=== PATIENT | male | born 1965 | race Caucasian/White ===

== ENCOUNTER → 2021-07-21 05:04 | Outpatient (REF) | payer MEDICARE, MEDICAID, SELFPAY ==
[2021-07-21 09:21] LABS: Cholesterol 155 mg/dL (200); High Density Lipoprotein 41 mg/dL; Triglycerides 179 mg/dL; Very Low Density Lipoprotein 36 mg/dL (5-40)
== END ==
LOC: OLS.SANC 05:04
PROVIDERS: Visit Provider Internal Medicine
DX: E11.9 Type 2 diabetes mellitus without complications (principal); I10 Essential (primary) hypertension; E78.5 Hyperlipidemia, unspecified
CPT/HCPCS: 36415; 80061

== ENCOUNTER → 2021-07-29 07:00 | Outpatient (REF) | payer MEDICARE, MEDICAID, SELFPAY ==
[2021-07-29 09:55] LABS: Hematocrit 36.8 % (40-54); Hemoglobin 11.1 g/dL (13.0-16.5); Mean Corp Hgb Conc 30.2 g/dL (32-36); Mean Corpuscular Hgb 26.7 pg (27.0-32.0); Mean Corpuscular Volume 88.5 fL (80-94); Mean Platelet Vol. 10.1 fl (6.2-12.0); Platelet Count 320 K/mm3 (150-450); RBC Distribution Width SD 45.2 fl (35.1-43.9); Red Blood Count 4.16 M/mm3 (4.6-6.2)
[2021-07-29 10:51] LABS: ALB/GLOB Ratio 0.8 RATIO (0.9-2.4); AST(SGOT) 21 U/L (15-37); Alanine Aminotransfer ALT/SGPT 35 U/L (16-61); Albumin, Serum 2.9 g/dL (3.2-5.0); Alkaline Phosphatase 192 U/L (45-117); Anion Gap 4 (5-15); BUN 18 mg/dL (7-18); BUN/Creat Ratio 28.6 RATIO (10-20); Calcium,Total 8.8 mg/dL (8.5-10.1); Chloride 105 mmol/L (98-107); Cholesterol 163 mg/dL (200); Creatinine, Serum 0.63 mg/dL (0.70-1.30); EST Glomerular Filtration Rate 141 mL/min (>60); Est Glom Filt Rate - Afr Amer 171 mL/min (>60); Globulin 3.7 g/dL (2.2-4.2); Glucose 106 mg/dL (74-106); High Density Lipoprotein 41 mg/dL; Potassium 4.3 mmol/L (3.5-5.1); Protein, Total 6.6 g/dL (6.4-8.2); Sodium Level 138 mmol/L (136-145); Triglycerides 188 mg/dL; Very Low Density Lipoprotein 38 mg/dL (5-40)
[2021-07-29 11:26] LABS: Hemoglobin A1c 8.8 % (3.8-5.6)
== END ==
LOC: OLS.SANC 07:00
PROVIDERS: Visit Provider Internal Medicine
DX: E11.9 Type 2 diabetes mellitus without complications (principal); E78.5 Hyperlipidemia, unspecified
CPT/HCPCS: 36415; 80053; 80061; 83036; 85027

== ENCOUNTER → 2021-08-28 05:00 | Outpatient (REF) | payer MEDICARE, MEDICAID, SELFPAY ==
[2021-08-28 07:59] LABS: Absolute Lymphocyte Count 2.19 X10^3/uL (0.83-4.51); Absolute Neutrophil Count 3.1 X10^3/uL (2.0-7.7); Basophil# 0.04 X10^3/uL; Basophil% 0.7 % (0-1); Eosinophil# 0.18 X10^3/uL; Eosinophils% 2.9 % (0-5); Hematocrit 36.5 % (40-54); Lymphocyte # 2.19 X10^3/ul (0.83-4.51); Lymphocyte % 35.8 % (19-41); Mean Corp Hgb Conc 30.1 g/dL (32-36); Mean Corpuscular Hgb 26.4 pg (27.0-32.0); Mean Corpuscular Volume 87.5 fL (80-94); Mean Platelet Vol. 10.3 fl (6.2-12.0); Monocyte# 0.58 X10^3/uL; Monocyte% 9.5 % (0-10); NRBC Flagged by Analyzer 0 % (0-5); Neutrophil # 3.11 X10^3/uL (2.7-7.7); Neutrophil % 50.8 % (47-70); Platelet Count 310 K/mm3 (150-450); RBC Distribution Width CV 14.1 % (11.6-14.6); RBC Distribution Width SD 45.6 fl (35.1-43.9); Red Blood Count 4.17 M/mm3 (4.6-6.2); White Blood Count 6.1 K/mm3 (4.4-11.0)
[2021-08-28 08:21] LABS: Anion Gap 7 (5-15); BUN 25 mg/dL (7-18); BUN/Creat Ratio 30.8 RATIO (10-20); Calcium,Total 9.2 mg/dL (8.5-10.1); Chloride 108 mmol/L (98-107); Creatinine, Serum 0.81 mg/dL (0.70-1.30); EST Glomerular Filtration Rate 105 mL/min (>60); Est Glom Filt Rate - Afr Amer 127 mL/min (>60); Glucose 227 mg/dL (74-106); Potassium 4.3 mmol/L (3.5-5.1); Sodium Level 139 mmol/L (136-145)
== END ==
LOC: OLS.SANC 05:00
PROVIDERS: Visit Provider Internal Medicine
DX: E11.9 Type 2 diabetes mellitus without complications (principal)
CPT/HCPCS: 36415; 80048; 85025

== ENCOUNTER → 2021-09-29 05:00 | Outpatient (REF) | payer MEDICARE, MEDICAID, SELFPAY ==
[2021-09-29 09:43] LABS: Absolute Lymphocyte Count 2.67 X10^3/uL (0.83-4.51); Absolute Neutrophil Count 3.8 X10^3/uL (2.0-7.7); Basophil# 0.04 X10^3/uL; Basophil% 0.5 % (0-1); Eosinophil# 0.19 X10^3/uL; Eosinophils% 2.6 % (0-5); Hematocrit 34.5 % (40-54); Hemoglobin 10.7 g/dL (13.0-16.5); Lymphocyte # 2.67 X10^3/ul (0.83-4.51); Lymphocyte % 36.5 % (19-41); Mean Corpuscular Volume 86.9 fL (80-94); Mean Platelet Vol. 10.4 fl (6.2-12.0); Monocyte# 0.53 X10^3/uL; Monocyte% 7.2 % (0-10); NRBC Flagged by Analyzer 0 % (0-5); Neutrophil # 3.83 X10^3/uL (2.7-7.7); Neutrophil % 52.4 % (47-70); Platelet Count 312 K/mm3 (150-450); RBC Distribution Width CV 13.5 % (11.6-14.6); RBC Distribution Width SD 43.2 fl (35.1-43.9); Red Blood Count 3.97 M/mm3 (4.6-6.2); White Blood Count 7.3 K/mm3 (4.4-11.0)
[2021-09-29 10:15] LABS: Anion Gap 5 (5-15); BUN 18 mg/dL (7-18); BUN/Creat Ratio 21.1 RATIO (10-20); Calcium,Total 8.9 mg/dL (8.5-10.1); Chloride 106 mmol/L (98-107); Creatinine, Serum 0.85 mg/dL (0.70-1.30); EST Glomerular Filtration Rate 99 mL/min (>60); Est Glom Filt Rate - Afr Amer 120 mL/min (>60); Glucose 240 mg/dL (74-106); Sodium Level 138 mmol/L (136-145)
== END ==
LOC: OLS.SANC 05:00
PROVIDERS: Visit Provider Internal Medicine
DX: E11.9 Type 2 diabetes mellitus without complications (principal); I10 Essential (primary) hypertension; E78.5 Hyperlipidemia, unspecified
CPT/HCPCS: 36415; 80048; 85025

== ENCOUNTER → 2022-01-19 | Outpatient (REF) | payer MEDICARE, MEDICAID, SELFPAY ==
[2022-01-19 09:51] LABS: Cholesterol 169 mg/dL (200); High Density Lipoprotein 35 mg/dL; Triglycerides 177 mg/dL; Very Low Density Lipoprotein 35 mg/dL (5-40)
== END | disposition home or self-care (01) ==
LOC: OLS.SANC 04:00
PROVIDERS: Referring Provider Internal Medicine; Visit Provider Internal Medicine
DX: I10 Essential (primary) hypertension (principal); E11.9 Type 2 diabetes mellitus without complications; E78.5 Hyperlipidemia, unspecified
CPT/HCPCS: 36415; 80061

== ENCOUNTER → 2022-01-29 | Outpatient (REF) | payer MEDICARE, MEDICAID, SELFPAY ==
[2022-01-29 08:15] LABS: Hematocrit 35.1 % (40-54); Hemoglobin 10.9 g/dL (13.0-16.5); Mean Corp Hgb Conc 31.1 g/dL (32-36); Mean Corpuscular Hgb 27.9 pg (27.0-32.0); Mean Corpuscular Volume 89.8 fL (80-94); Mean Platelet Vol. 10.9 fl (6.2-12.0); Platelet Count 306 K/mm3 (150-450); RBC Distribution Width CV 13.3 % (11.6-14.6); RBC Distribution Width SD 43.8 fl (35.1-43.9); Red Blood Count 3.91 M/mm3 (4.6-6.2)
[2022-01-29 08:35] LABS: ALB/GLOB Ratio 0.9 RATIO (0.9-2.4); AST(SGOT) 11 U/L (15-37); Alanine Aminotransfer ALT/SGPT 38 U/L (16-61); Albumin, Serum 3.3 g/dL (3.2-5.0); Alkaline Phosphatase 194 U/L (45-117); Anion Gap 5 (5-15); BUN 18 mg/dL (7-18); BUN/Creat Ratio 20.6 RATIO (10-20); Calcium,Total 8.8 mg/dL (8.5-10.1); Chloride 103 mmol/L (98-107); Creatinine, Serum 0.87 mg/dL (0.70-1.30); EST Glomerular Filtration Rate 97 mL/min (>60); Est Glom Filt Rate - Afr Amer 117 mL/min (>60); Globulin 3.5 g/dL (2.2-4.2); Glucose 334 mg/dL (74-106); Hemoglobin A1c 8.8 % (3.8-5.6); Protein, Total 6.8 g/dL (6.4-8.2); Sodium Level 135 mmol/L (136-145)
== END | disposition home or self-care (01) ==
LOC: OLS.SANC 04:00
PROVIDERS: Visit Provider Internal Medicine
DX: I10 Essential (primary) hypertension (principal); E78.5 Hyperlipidemia, unspecified; E11.9 Type 2 diabetes mellitus without complications
CPT/HCPCS: 36415; 80053; 83036; 85027

== ENCOUNTER → 2022-03-02 | Outpatient (REF) | payer MEDICARE, MEDICAID, SELFPAY ==
[2022-03-02 10:13] LABS: Hematocrit 34.5 % (40-54); Hemoglobin 10.7 g/dL (13.0-16.5); Mean Corpuscular Hgb 27.9 pg (27.0-32.0); Mean Corpuscular Volume 90.1 fL (80-94); Mean Platelet Vol. 10.6 fl (6.2-12.0); Platelet Count 310 K/mm3 (150-450); RBC Distribution Width CV 13.5 % (11.6-14.6); RBC Distribution Width SD 44.5 fl (35.1-43.9); Red Blood Count 3.83 M/mm3 (4.6-6.2); White Blood Count 7.7 K/mm3 (4.4-11.0)
[2022-03-02 10:35] LABS: Anion Gap 7 (5-15); BUN 25 mg/dL (7-18); BUN/Creat Ratio 31.8 RATIO (10-20); Chloride 105 mmol/L (98-107); Creatinine, Serum 0.79 mg/dL (0.70-1.30); EST Glomerular Filtration Rate 109 mL/min (>60); Est Glom Filt Rate - Afr Amer 132 mL/min (>60); Glucose 284 mg/dL (74-106); Potassium 4.6 mmol/L (3.5-5.1); Sodium Level 134 mmol/L (136-145)
== END | disposition home or self-care (01) ==
LOC: OLS.SANC 05:35
PROVIDERS: Visit Provider Internal Medicine
DX: I10 Essential (primary) hypertension (principal); E11.9 Type 2 diabetes mellitus without complications; E78.5 Hyperlipidemia, unspecified
CPT/HCPCS: 36415; 80048; 85027

== ENCOUNTER → 2022-04-13 | Outpatient (REF) | payer MEDICARE, MEDICAID, SELFPAY ==
[2022-04-13 10:41] LABS: Hematocrit 34.3 % (40-54); Mean Corp Hgb Conc 32.1 g/dL (32-36); Mean Corpuscular Hgb 28.1 pg (27.0-32.0); Mean Corpuscular Volume 87.7 fL (80-94); Mean Platelet Vol. 10.3 fl (6.2-12.0); Platelet Count 310 K/mm3 (150-450); RBC Distribution Width CV 13.2 % (11.6-14.6); RBC Distribution Width SD 42.3 fl (35.1-43.9); Red Blood Count 3.91 M/mm3 (4.6-6.2); White Blood Count 8.9 K/mm3 (4.4-11.0)
[2022-04-13 10:59] LABS: ALB/GLOB Ratio 0.9 RATIO (0.9-2.4); AST(SGOT) 16 U/L (15-37); Alanine Aminotransfer ALT/SGPT 43 U/L (16-61); Albumin, Serum 3.2 g/dL (3.2-5.0); Alkaline Phosphatase 189 U/L (45-117); Anion Gap 6 (5-15); BUN 27 mg/dL (7-18); BUN/Creat Ratio 34.9 RATIO (10-20); Calcium,Total 9.1 mg/dL (8.5-10.1); Chloride 105 mmol/L (98-107); Creatinine, Serum 0.77 mg/dL (0.70-1.30); EST Glomerular Filtration Rate 111 mL/min (>60); Est Glom Filt Rate - Afr Amer 134 mL/min (>60); Globulin 3.6 g/dL (2.2-4.2); Glucose 260 mg/dL (74-106); Potassium 4.7 mmol/L (3.5-5.1); Protein, Total 6.8 g/dL (6.4-8.2); Sodium Level 134 mmol/L (136-145)
== END | disposition home or self-care (01) ==
LOC: OLS.SANC 05:00
PROVIDERS: Visit Provider Internal Medicine
DX: I10 Essential (primary) hypertension (principal); E11.9 Type 2 diabetes mellitus without complications; E78.5 Hyperlipidemia, unspecified
CPT/HCPCS: 36415; 80053; 85027

== ENCOUNTER → 2022-04-27 | Outpatient (REF) | payer MEDICARE, MEDICAID, SELFPAY ==
[2022-04-27 10:08] LABS: Cholesterol 135 mg/dL (200); High Density Lipoprotein 35 mg/dL; Triglycerides 183 mg/dL; Very Low Density Lipoprotein 37 mg/dL (5-40)
== END | disposition home or self-care (01) ==
LOC: OLS.SANC 04:00
PROVIDERS: Referring Provider Internal Medicine; Visit Provider Internal Medicine
DX: I10 Essential (primary) hypertension (principal); E11.9 Type 2 diabetes mellitus without complications; E78.5 Hyperlipidemia, unspecified
CPT/HCPCS: 36415; 80061

== ENCOUNTER → 2022-05-25 | Outpatient (REF) | payer MEDICARE, MEDICAID, SELFPAY ==
[2022-05-25 08:36] LABS: Hemoglobin 10.5 g/dL (13.0-16.5); Mean Corp Hgb Conc 30.9 g/dL (32-36); Mean Corpuscular Hgb 27.2 pg (27.0-32.0); Mean Corpuscular Volume 88.1 fL (80-94); Mean Platelet Vol. 10.5 fl (6.2-12.0); Platelet Count 320 K/mm3 (150-450); RBC Distribution Width CV 14.1 % (11.6-14.6); RBC Distribution Width SD 45.1 fl (35.1-43.9); Red Blood Count 3.86 M/mm3 (4.6-6.2); White Blood Count 7.9 K/mm3 (4.4-11.0)
[2022-05-25 08:51] LABS: ALB/GLOB Ratio 0.8 RATIO (0.9-2.4); AST(SGOT) 14 U/L (15-37); Alanine Aminotransfer ALT/SGPT 37 U/L (16-61); Albumin, Serum 2.9 g/dL (3.2-5.0); Alkaline Phosphatase 187 U/L (45-117); Anion Gap 6 (5-15); BUN 23 mg/dL (7-18); BUN/Creat Ratio 27.5 RATIO (10-20); Chloride 104 mmol/L (98-107); Creatinine, Serum 0.84 mg/dL (0.70-1.30); EST Glomerular Filtration Rate 101 mL/min (>60); Est Glom Filt Rate - Afr Amer 123 mL/min (>60); Globulin 3.8 g/dL (2.2-4.2); Glucose 299 mg/dL (74-106); Protein, Total 6.7 g/dL (6.4-8.2); Sodium Level 135 mmol/L (136-145)
== END | disposition home or self-care (01) ==
LOC: OLS.SANC 04:00
PROVIDERS: Referring Provider Internal Medicine; Visit Provider Internal Medicine
DX: I10 Essential (primary) hypertension (principal); E11.9 Type 2 diabetes mellitus without complications; E78.5 Hyperlipidemia, unspecified
CPT/HCPCS: 36415; 80053; 85027

== ENCOUNTER → 2022-06-24 | Outpatient (REF) | payer MEDICARE, MEDICAID, SELFPAY ==
[2022-06-24 09:24] LABS: Hematocrit 36.2 % (40-54); Hemoglobin 11.5 g/dL (13.0-16.5); Mean Corp Hgb Conc 31.8 g/dL (32-36); Mean Corpuscular Hgb 27.9 pg (27.0-32.0); Mean Corpuscular Volume 87.9 fL (80-94); Mean Platelet Vol. 10.7 fl (6.2-12.0); Platelet Count 396 K/mm3 (150-450); RBC Distribution Width CV 14.1 % (11.6-14.6); RBC Distribution Width SD 45.2 fl (35.1-43.9); Red Blood Count 4.12 M/mm3 (4.6-6.2)
[2022-06-24 09:37] LABS: Anion Gap 7 (5-15); BUN 36 mg/dL (7-18); BUN/Creat Ratio 42.1 RATIO (10-20); Calcium,Total 9.1 mg/dL (8.5-10.1); Chloride 105 mmol/L (98-107); Creatinine, Serum 0.86 mg/dL (0.70-1.30); EST Glomerular Filtration Rate 99 mL/min (>60); Est Glom Filt Rate - Afr Amer 119 mL/min (>60); Glucose 188 mg/dL (74-106); Potassium 5.1 mmol/L (3.5-5.1); Sodium Level 134 mmol/L (136-145)
== END ==
LOC: OLS.SANC 05:00
PROVIDERS: Visit Provider Internal Medicine
DX: E11.9 Type 2 diabetes mellitus without complications (principal); I10 Essential (primary) hypertension
CPT/HCPCS: 36415; 80048; 85027

== ENCOUNTER → 2022-07-20 | Outpatient (REF) | payer MEDICARE, MEDICAID, SELFPAY ==
[2022-07-20 08:20] LABS: Hematocrit 34.8 % (40-54); Hemoglobin 10.7 g/dL (13.0-16.5); Mean Corp Hgb Conc 30.7 g/dL (32-36); Mean Corpuscular Hgb 27.4 pg (27.0-32.0); Mean Corpuscular Volume 89.2 fL (80-94); Mean Platelet Vol. 10.5 fl (6.2-12.0); Platelet Count 332 K/mm3 (150-450); RBC Distribution Width CV 14.1 % (11.6-14.6); RBC Distribution Width SD 45.4 fl (35.1-43.9); White Blood Count 7.9 K/mm3 (4.4-11.0)
[2022-07-20 08:38] LABS: ALB/GLOB Ratio 0.8 RATIO (0.9-2.4); AST(SGOT) 11 U/L (15-37); Alanine Aminotransfer ALT/SGPT 36 U/L (16-61); Alkaline Phosphatase 191 U/L (45-117); Anion Gap 8 (5-15); BUN 24 mg/dL (7-18); BUN/Creat Ratio 28.4 RATIO (10-20); Calcium,Total 8.9 mg/dL (8.5-10.1); Chloride 103 mmol/L (98-107); Cholesterol 172 mg/dL (200); Creatinine, Serum 0.85 mg/dL (0.70-1.30); EST Glomerular Filtration Rate 100 mL/min (>60); Est Glom Filt Rate - Afr Amer 121 mL/min (>60); Globulin 3.6 g/dL (2.2-4.2); Glucose 255 mg/dL (74-106); High Density Lipoprotein 35 mg/dL; Potassium 4.9 mmol/L (3.5-5.1); Protein, Total 6.6 g/dL (6.4-8.2); Sodium Level 135 mmol/L (136-145); Triglycerides 202 mg/dL; Very Low Density Lipoprotein 40 mg/dL (5-40)
[2022-07-20 14:03] LABS: Hemoglobin A1c 10.1 % (3.8-5.6)
== END ==
LOC: OLS.SANC 06:50
PROVIDERS: Visit Provider Internal Medicine
DX: E11.9 Type 2 diabetes mellitus without complications (principal); I10 Essential (primary) hypertension; E78.5 Hyperlipidemia, unspecified
CPT/HCPCS: 36415; 80053; 80061; 83036; 85027

== ENCOUNTER → 2022-10-27 | Outpatient (REF) | payer MEDICARE, MEDICAID, SELFPAY ==
[2022-10-27 09:19] LABS: Hemoglobin 11.3 g/dL (13.0-16.5); Mean Corp Hgb Conc 31.4 g/dL (32-36); Mean Corpuscular Volume 89.3 fL (80-94); Mean Platelet Vol. 10.1 fl (6.2-12.0); Platelet Count 343 K/mm3 (150-450); RBC Distribution Width CV 13.8 % (11.6-14.6); RBC Distribution Width SD 45.3 fl (35.1-43.9); Red Blood Count 4.03 M/mm3 (4.6-6.2); White Blood Count 7.5 K/mm3 (4.4-11.0)
[2022-10-27 09:34] LABS: ALB/GLOB Ratio 0.9 RATIO (0.9-2.4); AST(SGOT) 16 U/L (15-37); Alanine Aminotransfer ALT/SGPT 41 U/L (16-61); Albumin, Serum 3.1 g/dL (3.2-5.0); Alkaline Phosphatase 179 U/L (45-117); Anion Gap 6 (5-15); BUN 23 mg/dL (7-18); BUN/Creat Ratio 27.7 RATIO (10-20); Chloride 104 mmol/L (98-107); Cholesterol 150 mg/dL (200); Creatinine, Serum 0.83 mg/dL (0.70-1.30); EST Glomerular Filtration Rate 102 mL/min (>60); Est Glom Filt Rate - Afr Amer 123 mL/min (>60); Globulin 3.4 g/dL (2.2-4.2); Glucose 217 mg/dL (74-106); High Density Lipoprotein 34 mg/dL; Potassium 4.9 mmol/L (3.5-5.1); Protein, Total 6.5 g/dL (6.4-8.2); Sodium Level 136 mmol/L (136-145); Triglycerides 197 mg/dL; Very Low Density Lipoprotein 39 mg/dL (5-40)
== END ==
LOC: OLS.SANC 05:00
PROVIDERS: Visit Provider Internal Medicine
DX: E11.9 Type 2 diabetes mellitus without complications (principal); E78.5 Hyperlipidemia, unspecified
CPT/HCPCS: 36415; 80053; 80061; 85027

== ENCOUNTER → 2022-12-02 | Outpatient (REF) | payer MEDICARE, MEDICAID, SELFPAY ==
[2022-12-02 09:45] LABS: Hemoglobin A1c 9.5 % (3.8-5.6)
== END ==
LOC: OLS.SANC 05:00
PROVIDERS: Visit Provider Internal Medicine
DX: E11.9 Type 2 diabetes mellitus without complications (principal)
CPT/HCPCS: 36415; 83036

== ENCOUNTER → 2023-01-13 | Outpatient (REF) | payer MEDICARE, MEDICAID, SELFPAY ==
[2023-01-13 10:14] LABS: Cholesterol 156 mg/dL (200); High Density Lipoprotein 37 mg/dL; Triglycerides 235 mg/dL; Very Low Density Lipoprotein 47 mg/dL (5-40)
== END ==
LOC: OLS.SANC 05:00
DX: E78.5 Hyperlipidemia, unspecified (principal)
CPT/HCPCS: 36415; 80061

== ENCOUNTER → 2023-03-15 | Outpatient (REF) | payer MEDICARE, MEDICAID, SELFPAY ==
[2023-03-15 09:56] LABS: Cholesterol 142 mg/dL (200); High Density Lipoprotein 32 mg/dL; Triglycerides 149 mg/dL; Very Low Density Lipoprotein 30 mg/dL (5-40)
== END ==
LOC: OLS.SANC 05:00
PROVIDERS: Visit Provider Internal Medicine
DX: E11.9 Type 2 diabetes mellitus without complications (principal); I10 Essential (primary) hypertension; E78.5 Hyperlipidemia, unspecified
CPT/HCPCS: 36415; 80061

== ENCOUNTER → 2023-03-30 | Outpatient (REF) | payer MEDICARE, MEDICAID, SELFPAY ==
[2023-03-30 20:23] LABS: Hemoglobin A1c 9.4 % (3.8-5.6)
== END ==
LOC: OLS.SANC 05:00
PROVIDERS: Visit Provider Internal Medicine
DX: E11.9 Type 2 diabetes mellitus without complications (principal)
CPT/HCPCS: 36415; 83036

== ENCOUNTER → 2023-04-19 | Outpatient (REF) | payer MEDICARE, MEDICAID, SELFPAY ==
[2023-04-19 09:01] LABS: Hematocrit 37.4 % (40-54); Hemoglobin 11.2 g/dL (13.0-16.5); Mean Corp Hgb Conc 29.9 g/dL (32-36); Mean Corpuscular Hgb 27.2 pg (27.0-32.0); Mean Corpuscular Volume 90.8 fL (80-94); Mean Platelet Vol. 10.2 fl (6.2-12.0); Platelet Count 361 K/mm3 (150-450); RBC Distribution Width CV 14.1 % (11.6-14.6); RBC Distribution Width SD 46.9 fl (35.1-43.9); Red Blood Count 4.12 M/mm3 (4.6-6.2); White Blood Count 7.4 K/mm3 (4.4-11.0)
[2023-04-19 09:19] LABS: ALB/GLOB Ratio 0.9 RATIO (0.9-2.4); AST(SGOT) 21 U/L (15-37); Alanine Aminotransfer ALT/SGPT 39 U/L (16-61); Alkaline Phosphatase 176 U/L (45-117); Anion Gap 6 (5-15); BUN 19 mg/dL (7-18); BUN/Creat Ratio 23.7 RATIO (10-20); Calcium,Total 8.8 mg/dL (8.5-10.1); Chloride 104 mmol/L (98-107); Cholesterol 136 mg/dL (200); EST Glomerular Filtration Rate 106 mL/min (>60); Est Glom Filt Rate - Afr Amer 128 mL/min (>60); Globulin 3.5 g/dL (2.2-4.2); Glucose 252 mg/dL (74-106); High Density Lipoprotein 33 mg/dL; Potassium 4.9 mmol/L (3.5-5.1); Protein, Total 6.5 g/dL (6.4-8.2); Sodium Level 136 mmol/L (136-145); Triglycerides 173 mg/dL; Very Low Density Lipoprotein 35 mg/dL (5-40)
== END ==
LOC: OLS.SANC 05:00
PROVIDERS: Visit Provider Internal Medicine
DX: E11.9 Type 2 diabetes mellitus without complications (principal); I10 Essential (primary) hypertension; E78.5 Hyperlipidemia, unspecified
CPT/HCPCS: 36415; 80053; 80061; 83036; 85027

== ENCOUNTER → 2023-05-31 | Outpatient (REF) | payer MEDICARE, MEDICAID, SELFPAY ==
[2023-05-31 07:19] LABS: Hemoglobin 10.4 g/dL (13.0-16.5); Mean Corp Hgb Conc 29.7 g/dL (32-36); Mean Corpuscular Hgb 26.7 pg (27.0-32.0); Mean Corpuscular Volume 89.7 fL (80-94); Mean Platelet Vol. 9.9 fl (6.2-12.0); Platelet Count 400 K/mm3 (150-450); RBC Distribution Width CV 14.3 % (11.6-14.6); RBC Distribution Width SD 46.2 fl (35.1-43.9); White Blood Count 7.7 K/mm3 (4.4-11.0)
[2023-05-31 07:30] LABS: Anion Gap 5 (5-15); BUN 24 mg/dL (7-18); Calcium,Total 8.9 mg/dL (8.5-10.1); Chloride 106 mmol/L (98-107); Creatinine, Serum 0.78 mg/dL (0.70-1.30); EST Glomerular Filtration Rate 110 mL/min (>60); Est Glom Filt Rate - Afr Amer 133 mL/min (>60); Glucose 227 mg/dL (74-106); Potassium 4.8 mmol/L (3.5-5.1); Sodium Level 137 mmol/L (136-145)
[2023-05-31 08:45] LABS: Hemoglobin A1c 8.2 % (3.8-5.6)
== END ==
LOC: OLS.SANC 05:00
PROVIDERS: Visit Provider Internal Medicine
DX: I10 Essential (primary) hypertension (principal); E11.9 Type 2 diabetes mellitus without complications
CPT/HCPCS: 36415; 80048; 83036; 85027

== ENCOUNTER → 2023-07-05 | Outpatient (REF) | payer MEDICARE, SELFPAY ==
[2023-07-06 09:41] LABS: Red Blood Count 4.01 M/mm3 (4.6-6.2)
[2023-07-06 09:42] LABS: Hematocrit 35.8 % (40-54); Hemoglobin 10.9 g/dL (13.0-16.5); Mean Corp Hgb Conc 30.4 g/dL (32-36); Mean Corpuscular Hgb 27.2 pg (27.0-32.0); Mean Corpuscular Volume 89.3 fL (80-94); Platelet Count 352 K/mm3 (150-450); RBC Distribution Width CV 14.5 % (11.6-14.6); RBC Distribution Width SD 47.5 fl (35.1-43.9)
[2023-07-06 09:43] LABS: BUN 18 mg/dL (7-18); Creatinine, Serum 0.76 mg/dL (0.70-1.30); Glucose 149 mg/dL (74-106); Mean Platelet Vol. 10.1 fl (6.2-12.0)
[2023-07-06 09:44] LABS: ALB/GLOB Ratio 0.8 RATIO (0.9-2.4); Albumin, Serum 2.7 g/dL (3.2-5.0); BUN/Creat Ratio 23.7 RATIO (10-20); Calcium,Total 8.8 mg/dL (8.5-10.1); EST Glomerular Filtration Rate 113 mL/min (>60); Est Glom Filt Rate - Afr Amer 137 mL/min (>60); Globulin 3.6 g/dL (2.2-4.2); Protein, Total 6.3 g/dL (6.4-8.2)
[2023-07-06 09:45] LABS: AST(SGOT) 15 U/L (15-37); Alanine Aminotransfer ALT/SGPT 43 U/L (16-61); Alkaline Phosphatase 155 U/L (45-117); Chloride 108 mmol/L (98-107); Potassium 4.4 mmol/L (3.5-5.1); Sodium Level 138 mmol/L (136-145)
[2023-07-06 09:46] LABS: Anion Gap 4 (5-15)
== END ==
LOC: OLS.SANC 04:00
PROVIDERS: Visit Provider Internal Medicine
DX: E11.9 Type 2 diabetes mellitus without complications (principal); I10 Essential (primary) hypertension; E78.5 Hyperlipidemia, unspecified
CPT/HCPCS: 36415; 80053; 85027

== ENCOUNTER → 2023-08-02 | Outpatient (REF) | payer MEDICARE, MEDICAID, SELFPAY ==
[2023-08-02 09:10] LABS: Hematocrit 35.3 % (37-47); Hemoglobin 10.9 g/dL (12.0-15.0); Mean Corp Hgb Conc 30.9 g/dL (32-36); Mean Corpuscular Hgb 27.5 pg (27.0-32.0); Mean Corpuscular Volume 88.9 fL (81-99); Mean Platelet Vol. 10.3 fl (6.2-12.0); Platelet Count 342 K/mm3 (150-450); RBC Distribution Width CV 14.7 % (11.6-14.6); RBC Distribution Width SD 48.3 fl (35.1-43.9); Red Blood Count 3.97 M/mm3 (4.2-5.4); White Blood Count 6.7 K/mm3 (4.4-11.0)
[2023-08-02 09:55] LABS: Anion Gap 7 (5-15); BUN 23 mg/dL (7-18); BUN/Creat Ratio 26.2 RATIO (10-20); Calcium,Total 8.8 mg/dL (8.5-10.1); Chloride 102 mmol/L (98-107); Creatinine, Serum 0.88 mg/dL (0.55-1.02); EST Glomerular Filtration Rate 71 mL/min (>60); Est Glom Filt Rate - Afr Amer 86 mL/min (>60); Glucose 393 mg/dL (74-106); Potassium 6.1 mmol/L (3.5-5.1); Sodium Level 131 mmol/L (136-145)
== END ==
LOC: OLS.SANC 04:00
PROVIDERS: Referring Provider Internal Medicine; Visit Provider Internal Medicine
DX: E11.9 Type 2 diabetes mellitus without complications (principal); I10 Essential (primary) hypertension; E78.5 Hyperlipidemia, unspecified
CPT/HCPCS: 36415; 80048; 85027

== ENCOUNTER → 2023-08-04 | Outpatient (REF) | payer MEDICARE, MEDICAID, SELFPAY ==
[2023-08-04 09:13] LABS: Anion Gap 3 (5-15); BUN 26 mg/dL (7-18); BUN/Creat Ratio 29.5 RATIO (10-20); Calcium,Total 8.6 mg/dL (8.5-10.1); Chloride 107 mmol/L (98-107); Creatinine, Serum 0.88 mg/dL (0.55-1.02); EST Glomerular Filtration Rate 71 mL/min (>60); Est Glom Filt Rate - Afr Amer 85 mL/min (>60); Glucose 140 mg/dL (74-106); Potassium 4.7 mmol/L (3.5-5.1); Sodium Level 137 mmol/L (136-145)
== END ==
LOC: OLS.SANC 05:50
PROVIDERS: Visit Provider Internal Medicine
DX: E11.9 Type 2 diabetes mellitus without complications (principal); E78.5 Hyperlipidemia, unspecified
CPT/HCPCS: 36415; 80048

== ENCOUNTER → 2023-08-17 | Outpatient (REF) | payer MEDICARE, MEDICAID, SELFPAY ==
[2023-08-17 09:04] LABS: Hematocrit 40.2 % (37-47); Hemoglobin 12.4 g/dL (12.0-15.0); Mean Corp Hgb Conc 30.8 g/dL (32-36); Mean Corpuscular Hgb 26.7 pg (27.0-32.0); Mean Corpuscular Volume 86.6 fL (81-99); Mean Platelet Vol. 9.8 fl (6.2-12.0); Platelet Count 410 K/mm3 (150-450); RBC Distribution Width SD 44.6 fl (35.1-43.9); Red Blood Count 4.64 M/mm3 (4.2-5.4); White Blood Count 9.3 K/mm3 (4.4-11.0)
[2023-08-17 09:21] LABS: ALB/GLOB Ratio 0.8 RATIO (0.9-2.4); AST(SGOT) 16 U/L (15-37); Alanine Aminotransfer ALT/SGPT 56 U/L (13-56); Albumin, Serum 3.1 g/dL (3.2-5.0); Alkaline Phosphatase 156 U/L (45-117); Anion Gap 3 (5-15); BUN 16 mg/dL (7-18); BUN/Creat Ratio 20.6 RATIO (10-20); Calcium,Total 9.1 mg/dL (8.5-10.1); Chloride 100 mmol/L (98-107); Creatinine, Serum 0.78 mg/dL (0.55-1.02); EST Glomerular Filtration Rate 81 mL/min (>60); Est Glom Filt Rate - Afr Amer 99 mL/min (>60); Globulin 3.7 g/dL (2.2-4.2); Glucose 240 mg/dL (74-106); Potassium 4.3 mmol/L (3.5-5.1); Protein, Total 6.8 g/dL (6.4-8.2); Sodium Level 132 mmol/L (136-145)
== END ==
LOC: OLS.SANC 05:00
PROVIDERS: Visit Provider Internal Medicine
DX: E11.9 Type 2 diabetes mellitus without complications (principal); I10 Essential (primary) hypertension
CPT/HCPCS: 36415; 80053; 85027

== ENCOUNTER → 2023-09-20 | Outpatient (REF) | payer MEDICARE, MEDICAID, SELFPAY ==
[2023-09-20 10:33] LABS: Hemoglobin A1c 7.3 % (3.8-5.6)
== END ==
LOC: OLS.SANC 05:00
PROVIDERS: Visit Provider Internal Medicine
DX: E11.9 Type 2 diabetes mellitus without complications (principal)
CPT/HCPCS: 36415; 83036

== ENCOUNTER → 2023-10-26 | Outpatient (REF) | payer MEDICARE, MEDICAID, SELFPAY ==
[2023-10-26 08:48] LABS: Absolute Lymphocyte Count 1.95 X10^3/uL (0.83-4.51); Absolute Neutrophil Count 3.6 X10^3/uL (2.0-7.7); Basophil# 0.03 X10^3/uL; Basophil% 0.5 % (0-1); Eosinophil# 0.21 X10^3/uL; Eosinophils% 3.4 % (0-5); Hematocrit 31.1 % (37-47); Hemoglobin 9.6 g/dL (12.0-15.0); Lymphocyte # 1.95 X10^3/ul (0.83-4.51); Lymphocyte % 31.3 % (19-41); Mean Corp Hgb Conc 30.9 g/dL (32-36); Mean Corpuscular Hgb 27.7 pg (27.0-32.0); Mean Corpuscular Volume 89.6 fL (81-99); Mean Platelet Vol. 10.3 fl (6.2-12.0); Monocyte% 6.4 % (0-10); NRBC Flagged by Analyzer 0 % (0-5); Neutrophil % 57.8 % (47-70); Platelet Count 355 K/mm3 (150-450); RBC Distribution Width CV 14.6 % (11.6-14.6); RBC Distribution Width SD 47.2 fl (35.1-43.9); Red Blood Count 3.47 M/mm3 (4.2-5.4); White Blood Count 6.2 K/mm3 (4.4-11.0)
[2023-10-26 09:01] LABS: Anion Gap 6 (5-15); BUN 23 mg/dL (7-18); BUN/Creat Ratio 26.6 RATIO (10-20); Chloride 107 mmol/L (98-107); Creatinine, Serum 0.87 mg/dL (0.55-1.02); EST Glomerular Filtration Rate 72 mL/min (>60); Est Glom Filt Rate - Afr Amer 87 mL/min (>60); Glucose 279 mg/dL (74-106); Potassium 4.9 mmol/L (3.5-5.1); Sodium Level 138 mmol/L (136-145)
== END ==
LOC: OLS.SANC 05:00
PROVIDERS: Visit Provider Internal Medicine
DX: E11.9 Type 2 diabetes mellitus without complications (principal); E78.5 Hyperlipidemia, unspecified; I10 Essential (primary) hypertension
CPT/HCPCS: 36415; 80048; 85025

== ENCOUNTER → 2023-11-18 | Outpatient (REF) | payer MEDICARE, MEDICAID, SELFPAY ==
[2023-11-18 09:24] LABS: Absolute Lymphocyte Count 2.16 X10^3/uL (0.83-4.51); Absolute Neutrophil Count 5.2 X10^3/uL (2.0-7.7); Basophil# 0.07 X10^3/uL; Basophil% 0.8 % (0-1); Eosinophil# 0.19 X10^3/uL; Eosinophils% 2.3 % (0-5); Hematocrit 34.8 % (37-47); Hemoglobin 10.7 g/dL (12.0-15.0); Lymphocyte # 2.16 X10^3/ul (0.83-4.51); Lymphocyte % 25.7 % (19-41); Mean Corp Hgb Conc 30.7 g/dL (32-36); Mean Corpuscular Hgb 27.2 pg (27.0-32.0); Mean Corpuscular Volume 88.5 fL (81-99); Mean Platelet Vol. 10.1 fl (6.2-12.0); Monocyte# 0.63 X10^3/uL; Monocyte% 7.5 % (0-10); NRBC Flagged by Analyzer 0 % (0-5); Neutrophil # 5.23 X10^3/uL (2.7-7.7); Neutrophil % 62.4 % (47-70); Platelet Count 340 K/mm3 (150-450); RBC Distribution Width CV 13.8 % (11.6-14.6); RBC Distribution Width SD 44.7 fl (35.1-43.9); Red Blood Count 3.93 M/mm3 (4.2-5.4); White Blood Count 8.4 K/mm3 (4.4-11.0)
[2023-11-18 09:55] LABS: ALB/GLOB Ratio 0.8 RATIO (0.9-2.4); AST(SGOT) 11 U/L (15-37); Alanine Aminotransfer ALT/SGPT 30 U/L (13-56); Albumin, Serum 2.8 g/dL (3.2-5.0); Alkaline Phosphatase 155 U/L (45-117); Anion Gap 8 (5-15); BUN 25 mg/dL (7-18); Calcium,Total 9.2 mg/dL (8.5-10.1); Chloride 104 mmol/L (98-107); Creatinine, Serum 0.86 mg/dL (0.55-1.02); EST Glomerular Filtration Rate 72 mL/min (>60); Est Glom Filt Rate - Afr Amer 87 mL/min (>60); Globulin 3.5 g/dL (2.2-4.2); Glucose 211 mg/dL (74-106); Lipase 22 U/L (13-75); Potassium 4.9 mmol/L (3.5-5.1); Protein, Total 6.3 g/dL (6.4-8.2); Sodium Level 136 mmol/L (136-145)
[2023-11-19 15:08] LABS: Endomysial Antibody IgA Negative (Negative); Immunoglobulin A 224 mg/dL (87-352); t-Transglutaminase IgA <2 U/mL (0-3)
== END ==
LOC: OLS.SANC 05:00
PROVIDERS: Visit Provider Internal Medicine
DX: E11.9 Type 2 diabetes mellitus without complications (principal); I10 Essential (primary) hypertension; E78.5 Hyperlipidemia, unspecified; K56.7 Ileus, unspecified
CPT/HCPCS: 36415; 80053; 82784; 83516; 83690; 85025; 86255

== ENCOUNTER → 2023-11-23 | Outpatient (REF) | payer MEDICARE, MEDICAID, SELFPAY ==
[2023-11-23 10:10] LABS: Hematocrit 33.4 % (37-47); Hemoglobin 10.5 g/dL (12.0-15.0); Mean Corp Hgb Conc 31.4 g/dL (32-36); Mean Corpuscular Hgb 27.6 pg (27.0-32.0); Mean Corpuscular Volume 87.7 fL (81-99); Mean Platelet Vol. 10.4 fl (6.2-12.0); Platelet Count 347 K/mm3 (150-450); RBC Distribution Width CV 13.7 % (11.6-14.6); RBC Distribution Width SD 43.8 fl (35.1-43.9); Red Blood Count 3.81 M/mm3 (4.2-5.4); White Blood Count 7.5 K/mm3 (4.4-11.0)
[2023-11-23 10:30] LABS: Anion Gap 6 (5-15); BUN 21 mg/dL (7-18); BUN/Creat Ratio 26.1 RATIO (10-20); Chloride 106 mmol/L (98-107); EST Glomerular Filtration Rate 78 mL/min (>60); Est Glom Filt Rate - Afr Amer 94 mL/min (>60); Ferritin 68 ng/mL (8-252); Glucose 212 mg/dL (74-106); Iron 53 ug/dL (50-170); Iron Binding Capacity,Total 274 ug/dL (250-450); Sodium Level 136 mmol/L (136-145)
[2023-11-23 10:39] LABS: Vitamin B12 298 pg/mL (211-911)
[2023-11-24 13:07] LABS: Alkaline Phosphatase, Serum 127 IU/L (44-121); Bone Fraction 31 % (14-68); Immunoglobulin G 622 mg/dL (586-1602); Intestinal Fraction 12 % (0-18); Liver Fraction 57 % (18-85)
[2023-11-24 14:08] LABS: Anti-Mitochondrial AB <20.0 Units (0.0-20.0)
== END ==
LOC: OLS.SANC 05:00
PROVIDERS: Visit Provider Internal Medicine
DX: E11.9 Type 2 diabetes mellitus without complications (principal); I10 Essential (primary) hypertension; E78.5 Hyperlipidemia, unspecified
CPT/HCPCS: 36415; 80048; 82607; 82728; 82784; 83516; 83540; 83550; 84075; 84080; 85027

== ENCOUNTER → 2023-12-22 | Outpatient (REF) | payer MEDICARE, MEDICAID, SELFPAY ==
[2023-12-22 09:53] LABS: Hematocrit 32.1 % (37-47); Hemoglobin 10.2 g/dL (12.0-15.0); Mean Corp Hgb Conc 31.8 g/dL (32-36); Mean Corpuscular Hgb 27.3 pg (27.0-32.0); Mean Corpuscular Volume 85.8 fL (81-99); Mean Platelet Vol. 9.9 fl (6.2-12.0); Platelet Count 393 K/mm3 (150-450); RBC Distribution Width CV 13.6 % (11.6-14.6); RBC Distribution Width SD 42.4 fl (35.1-43.9); Red Blood Count 3.74 M/mm3 (4.2-5.4); White Blood Count 9.4 K/mm3 (4.4-11.0)
[2023-12-22 10:36] LABS: Anion Gap 6 (5-15); BUN 35 mg/dL (7-18); Calcium,Total 9.1 mg/dL (8.5-10.1); Chloride 105 mmol/L (98-107); Creatinine, Serum 0.95 mg/dL (0.55-1.02); EST Glomerular Filtration Rate 65 mL/min (>60); Est Glom Filt Rate - Afr Amer 78 mL/min (>60); Glucose 129 mg/dL (74-106); Potassium 4.8 mmol/L (3.5-5.1); Sodium Level 136 mmol/L (136-145)
== END ==
LOC: OLS.SANC 04:00
PROVIDERS: Referring Provider Internal Medicine; Visit Provider Internal Medicine
DX: I10 Essential (primary) hypertension (principal); E78.5 Hyperlipidemia, unspecified; E11.9 Type 2 diabetes mellitus without complications
CPT/HCPCS: 36415; 80048; 85027

== ENCOUNTER → 2023-12-30 | Outpatient (REF) | payer MEDICARE, MEDICAID, SELFPAY ==
[2023-12-30 09:42] LABS: Hematocrit 34.2 % (37-47); Hemoglobin 10.6 g/dL (12.0-15.0); Mean Corpuscular Hgb 26.9 pg (27.0-32.0); Mean Corpuscular Volume 86.8 fL (81-99); Mean Platelet Vol. 10.3 fl (6.2-12.0); Platelet Count 434 K/mm3 (150-450); RBC Distribution Width CV 13.6 % (11.6-14.6); Red Blood Count 3.94 M/mm3 (4.2-5.4); White Blood Count 13.1 K/mm3 (4.4-11.0)
[2023-12-30 09:49] LABS: Anion Gap 6 (5-15); BUN 31 mg/dL (7-18); BUN/Creat Ratio 19.3 RATIO (10-20); Calcium,Total 9.4 mg/dL (8.5-10.1); Chloride 103 mmol/L (98-107); Creatinine, Serum 1.61 mg/dL (0.55-1.02); EST Glomerular Filtration Rate 35 mL/min (>60); Est Glom Filt Rate - Afr Amer 42 mL/min (>60); Glucose 116 mg/dL (74-106); Potassium 4.4 mmol/L (3.5-5.1); Sodium Level 133 mmol/L (136-145)
== END ==
LOC: OLS.SANC 05:00
PROVIDERS: Visit Provider Internal Medicine
DX: E11.9 Type 2 diabetes mellitus without complications (principal); R50.9 Fever, unspecified; I10 Essential (primary) hypertension; Z79.899 Other long term (current) drug therapy
CPT/HCPCS: 36415; 80048; 85027

== ENCOUNTER → 2023-12-31 | Outpatient (REF) | payer MEDICARE, MEDICAID, SELFPAY ==
[2023-12-31 08:30] LABS: Hematocrit 32.5 % (37-47); Hemoglobin 10.1 g/dL (12.0-15.0); Mean Corp Hgb Conc 31.1 g/dL (32-36); Mean Corpuscular Hgb 27.3 pg (27.0-32.0); Mean Corpuscular Volume 87.8 fL (81-99); Mean Platelet Vol. 10.1 fl (6.2-12.0); Platelet Count 413 K/mm3 (150-450); RBC Distribution Width CV 14.1 % (11.6-14.6); RBC Distribution Width SD 45.6 fl (35.1-43.9); White Blood Count 11.6 K/mm3 (4.4-11.0)
[2023-12-31 09:00] LABS: Anion Gap 8 (5-15); BUN 46 mg/dL (7-18); BUN/Creat Ratio 12.1 RATIO (10-20); Calcium,Total 8.9 mg/dL (8.5-10.1); Chloride 101 mmol/L (98-107); EST Glomerular Filtration Rate 13 mL/min (>60); Est Glom Filt Rate - Afr Amer 16 mL/min (>60); Glucose 87 mg/dL (74-106); Potassium 4.8 mmol/L (3.5-5.1); Sodium Level 133 mmol/L (136-145)
== END ==
LOC: OLS.SANC 05:00
PROVIDERS: Visit Provider Internal Medicine
DX: N39.0 Urinary tract infection, site not specified (principal); I10 Essential (primary) hypertension; E78.5 Hyperlipidemia, unspecified
CPT/HCPCS: 36415; 80048; 85027

== ENCOUNTER → 2024-01-13 | Outpatient (REF) | payer MEDICARE, MEDICAID, SELFPAY ==
[2024-01-13 09:07] LABS: Hematocrit 29.9 % (37-47); Hemoglobin 9.4 g/dL (12.0-15.0); Mean Corp Hgb Conc 31.4 g/dL (32-36); Mean Corpuscular Hgb 27.5 pg (27.0-32.0); Mean Corpuscular Volume 87.4 fL (81-99); Mean Platelet Vol. 9.8 fl (6.2-12.0); Platelet Count 380 K/mm3 (150-450); RBC Distribution Width CV 14.6 % (11.6-14.6); RBC Distribution Width SD 46.7 fl (35.1-43.9); Red Blood Count 3.42 M/mm3 (4.2-5.4); White Blood Count 7.1 K/mm3 (4.4-11.0)
[2024-01-13 09:20] LABS: Anion Gap 8 (5-15); BUN 19 mg/dL (7-18); BUN/Creat Ratio 30.8 RATIO (10-20); Calcium,Total 8.7 mg/dL (8.5-10.1); Chloride 107 mmol/L (98-107); Creatinine, Serum 0.62 mg/dL (0.55-1.02); EST Glomerular Filtration Rate 106 mL/min (>60); Est Glom Filt Rate - Afr Amer 129 mL/min (>60); Glucose 72 mg/dL (74-106); Potassium 3.9 mmol/L (3.5-5.1); Sodium Level 141 mmol/L (136-145)
[2024-01-14 05:24] LABS: Cholesterol 147 mg/dL (200); High Density Lipoprotein 37 mg/dL; Triglycerides 137 mg/dL; Very Low Density Lipoprotein 27 mg/dL (5-40)
== END ==
LOC: OLS.SANC 05:00
PROVIDERS: Visit Provider Internal Medicine
DX: E78.5 Hyperlipidemia, unspecified (principal); E11.9 Type 2 diabetes mellitus without complications; I10 Essential (primary) hypertension
CPT/HCPCS: 36415; 80048; 80061; 85027

== ENCOUNTER → 2024-01-17 | Outpatient (REF) | payer MEDICARE, MEDICAID, SELFPAY ==
[2024-01-17 09:21] LABS: Hematocrit 31.5 % (37-47); Hemoglobin 9.7 g/dL (12.0-15.0); Mean Corp Hgb Conc 30.8 g/dL (32-36); Mean Corpuscular Hgb 27.1 pg (27.0-32.0); Mean Platelet Vol. 10.5 fl (6.2-12.0); Platelet Count 372 K/mm3 (150-450); RBC Distribution Width CV 14.2 % (11.6-14.6); RBC Distribution Width SD 45.7 fl (35.1-43.9); Red Blood Count 3.58 M/mm3 (4.2-5.4); White Blood Count 7.1 K/mm3 (4.4-11.0)
[2024-01-17 10:23] LABS: ALB/GLOB Ratio 0.9 RATIO (0.9-2.4); AST(SGOT) 13 U/L (15-37); Alanine Aminotransfer ALT/SGPT 22 U/L (13-56); Albumin, Serum 2.9 g/dL (3.2-5.0); Alkaline Phosphatase 142 U/L (45-117); Anion Gap 8 (5-15); BUN 17 mg/dL (7-18); BUN/Creat Ratio 19.2 RATIO (10-20); Calcium,Total 8.6 mg/dL (8.5-10.1); Chloride 102 mmol/L (98-107); Creatinine, Serum 0.88 mg/dL (0.55-1.02); EST Glomerular Filtration Rate 70 mL/min (>60); Est Glom Filt Rate - Afr Amer 85 mL/min (>60); Globulin 3.3 g/dL (2.2-4.2); Glucose 325 mg/dL (74-106); Potassium 4.4 mmol/L (3.5-5.1); Protein, Total 6.2 g/dL (6.4-8.2); Sodium Level 134 mmol/L (136-145)
[2024-01-19 10:40] LABS: Hemoglobin A1c 8.1 % (3.8-5.6)
== END ==
LOC: OLS.SANC 05:00
PROVIDERS: Visit Provider Internal Medicine
DX: E11.9 Type 2 diabetes mellitus without complications (principal); E78.5 Hyperlipidemia, unspecified; I10 Essential (primary) hypertension
CPT/HCPCS: 36415; 80053; 83036; 85027

== ENCOUNTER → 2024-01-20 | Outpatient (REF) | payer MEDICARE, MEDICAID, SELFPAY ==
[2024-01-20 08:40] LABS: Hematocrit 30.9 % (37-47); Hemoglobin 9.6 g/dL (12.0-15.0); Mean Corp Hgb Conc 31.1 g/dL (32-36); Mean Corpuscular Hgb 27.4 pg (27.0-32.0); Mean Corpuscular Volume 88.3 fL (81-99); Platelet Count 411 K/mm3 (150-450); RBC Distribution Width CV 14.5 % (11.6-14.6); RBC Distribution Width SD 46.4 fl (35.1-43.9); White Blood Count 7.7 K/mm3 (4.4-11.0)
[2024-01-20 10:20] LABS: Anion Gap 7 (5-15); BUN 14 mg/dL (7-18); BUN/Creat Ratio 17.5 RATIO (10-20); Calcium,Total 8.8 mg/dL (8.5-10.1); Chloride 104 mmol/L (98-107); EST Glomerular Filtration Rate 78 mL/min (>60); Est Glom Filt Rate - Afr Amer 95 mL/min (>60); Glucose 159 mg/dL (74-106); Potassium 4.2 mmol/L (3.5-5.1); Sodium Level 137 mmol/L (136-145)
== END ==
LOC: OLS.SANC 05:00
PROVIDERS: Visit Provider Internal Medicine
DX: E11.9 Type 2 diabetes mellitus without complications (principal); I10 Essential (primary) hypertension; Z79.899 Other long term (current) drug therapy
CPT/HCPCS: 36415; 80048; 85027

== ENCOUNTER → 2024-02-14 | Outpatient (REF) | payer MEDICARE, MEDICAID, SELFPAY ==
[2024-02-14 09:39] LABS: Mucous, Urine 0 SEEN /hpf (<or=2+)
[2024-02-14 10:12] LABS: Hematocrit 32.4 % (37-47); Hemoglobin 10.3 g/dL (12.0-15.0); Mean Corp Hgb Conc 31.8 g/dL (32-36); Mean Corpuscular Hgb 27.8 pg (27.0-32.0); Mean Corpuscular Volume 87.6 fL (81-99); Mean Platelet Vol. 10.3 fl (6.2-12.0); Platelet Count 336 K/mm3 (150-450); RBC Distribution Width SD 44.6 fl (35.1-43.9); White Blood Count 6.9 K/mm3 (4.4-11.0)
[2024-02-14 10:21] LABS: Anion Gap 6 (5-15); BUN 8 mg/dL (7-18); BUN/Creat Ratio 11.7 RATIO (10-20); Calcium,Total 8.7 mg/dL (8.5-10.1); Chloride 101 mmol/L (98-107); Creatinine, Serum 0.68 mg/dL (0.55-1.02); EST Glomerular Filtration Rate 94 mL/min (>60); Est Glom Filt Rate - Afr Amer 114 mL/min (>60); Glucose 407 mg/dL (74-106); Potassium 4.1 mmol/L (3.5-5.1); Sodium Level 134 mmol/L (136-145)
[2024-02-14 10:48] LABS: Color, Urine Yellow (Yellow); Glucose, Dipstick 1000 mg/dl (Normal); Ketone-Dipstick Negative (Negative); Leukocyte Esterase-Dipstick 100 /ul (Negative); Nitrite-Dipstick Negative (Negative); Occult Blood-Urine 250 /ul (Negative); Protein-Dipstick 15 mg/dl (Negative); Specific Gravity, Urine 1.015 (1.002-1.030); Urine Bilirubin Dipstick Negative (Negative); Urine Clarity Sl. Cloudy (Clear); Urine Urobilinogen Normal (Normal)
[2024-02-14 11:07] LABS: Bacteria 1+ /hpf (None Seen); Red Blood Cells-Urine 25-50 SEEN /hpf (0-5); Squamous Epithelial Cells - UA 0-5 SEEN /hpf (5-10); White Blood Cells 10-25 SEEN /hpf (0-5)
== END ==
LOC: OLS.SANC 04:00
PROVIDERS: Referring Provider Internal Medicine; Visit Provider Internal Medicine
DX: E11.9 Type 2 diabetes mellitus without complications (principal); I10 Essential (primary) hypertension; E78.5 Hyperlipidemia, unspecified; R39.9 Unspecified symptoms and signs involving the genitourinary system
CPT/HCPCS: 36415; 80048; 81001; 85027; 87077; 87086; 87088; 87186

== ENCOUNTER → 2024-02-21 | Outpatient (REF) | payer MEDICARE, MEDICAID, SELFPAY ==
[2024-02-21 09:43] LABS: Hematocrit 32.8 % (37-47); Hemoglobin 10.1 g/dL (12.0-15.0); Mean Corp Hgb Conc 30.8 g/dL (32-36); Mean Corpuscular Hgb 27.7 pg (27.0-32.0); Mean Corpuscular Volume 89.9 fL (81-99); Mean Platelet Vol. 10.1 fl (6.2-12.0); Platelet Count 365 K/mm3 (150-450); RBC Distribution Width CV 14.2 % (11.6-14.6); RBC Distribution Width SD 46.5 fl (35.1-43.9); Red Blood Count 3.65 M/mm3 (4.2-5.4); White Blood Count 6.5 K/mm3 (4.4-11.0)
[2024-02-21 09:54] LABS: Anion Gap 4 (5-15); BUN 11 mg/dL (7-18); BUN/Creat Ratio 17.1 RATIO (10-20); Calcium,Total 8.6 mg/dL (8.5-10.1); Chloride 105 mmol/L (98-107); Creatinine, Serum 0.64 mg/dL (0.55-1.02); EST Glomerular Filtration Rate 101 mL/min (>60); Est Glom Filt Rate - Afr Amer 122 mL/min (>60); Glucose 280 mg/dL (74-106); Sodium Level 136 mmol/L (136-145)
== END ==
LOC: OLS.SANC 05:00
PROVIDERS: Visit Provider Internal Medicine
DX: E11.9 Type 2 diabetes mellitus without complications (principal); I10 Essential (primary) hypertension; E78.5 Hyperlipidemia, unspecified
CPT/HCPCS: 36415; 80048; 85027

== ENCOUNTER → 2024-03-22 | Outpatient (REF) | payer MEDICARE, MEDICAID, SELFPAY ==
[2024-03-22 07:15] LABS: Hematocrit 32.2 % (37-47); Hemoglobin 10.3 g/dL (12.0-15.0); Mean Corpuscular Hgb 27.9 pg (27.0-32.0); Mean Corpuscular Volume 87.3 fL (81-99); Platelet Count 384 K/mm3 (150-450); RBC Distribution Width CV 13.4 % (11.6-14.6); RBC Distribution Width SD 42.8 fl (35.1-43.9); Red Blood Count 3.69 M/mm3 (4.2-5.4)
[2024-03-22 07:59] LABS: ALB/GLOB Ratio 0.9 RATIO (0.9-2.4); AST(SGOT) 12 U/L (15-37); Alanine Aminotransfer ALT/SGPT 21 U/L (13-56); Alkaline Phosphatase 131 U/L (45-117); Anion Gap 5 (5-15); BUN 13 mg/dL (7-18); Calcium,Total 8.8 mg/dL (8.5-10.1); Chloride 106 mmol/L (98-107); Creatinine, Serum 0.69 mg/dL (0.55-1.02); EST Glomerular Filtration Rate 94 mL/min (>60); Est Glom Filt Rate - Afr Amer 113 mL/min (>60); Globulin 3.2 g/dL (2.2-4.2); Glucose 186 mg/dL (74-106); Protein, Total 6.2 g/dL (6.4-8.2); Sodium Level 137 mmol/L (136-145)
== END ==
LOC: OLS.SANC 04:00
PROVIDERS: Referring Provider Internal Medicine; Visit Provider Internal Medicine
DX: I10 Essential (primary) hypertension (principal); F03.90 Unspecified dementia, unspecified severity, without behavioral disturbance, psychotic disturbance, mood disturbance, and anxiety
CPT/HCPCS: 36415; 80053; 85027

== ENCOUNTER → 2024-03-23 | Outpatient (REF) | payer MEDICARE, MEDICAID, SELFPAY ==
[2024-03-23 08:26] LABS: Hematocrit 33.2 % (37-47); Hemoglobin 10.2 g/dL (12.0-15.0); Mean Corp Hgb Conc 30.7 g/dL (32-36); Mean Corpuscular Hgb 27.1 pg (27.0-32.0); Mean Corpuscular Volume 88.1 fL (81-99); Platelet Count 356 K/mm3 (150-450); RBC Distribution Width CV 13.6 % (11.6-14.6); RBC Distribution Width SD 44.1 fl (35.1-43.9); Red Blood Count 3.77 M/mm3 (4.2-5.4); White Blood Count 7.7 K/mm3 (4.4-11.0)
[2024-03-23 08:38] LABS: Anion Gap 5 (5-15); BUN 17 mg/dL (7-18); BUN/Creat Ratio 19.4 RATIO (10-20); Calcium,Total 8.7 mg/dL (8.5-10.1); Chloride 105 mmol/L (98-107); Creatinine, Serum 0.88 mg/dL (0.55-1.02); EST Glomerular Filtration Rate 71 mL/min (>60); Est Glom Filt Rate - Afr Amer 85 mL/min (>60); Glucose 329 mg/dL (74-106); Potassium 4.1 mmol/L (3.5-5.1); Sodium Level 137 mmol/L (136-145)
== END ==
LOC: OLS.SANC 05:00
PROVIDERS: Visit Provider Internal Medicine
DX: I10 Essential (primary) hypertension (principal); E78.5 Hyperlipidemia, unspecified; E11.9 Type 2 diabetes mellitus without complications
CPT/HCPCS: 36415; 80048; 85027

== ENCOUNTER → 2024-04-11 | Outpatient (CLI) | payer MEDICARE, MEDICAID, SELFPAY | END | disposition home or self-care (01) | LOC: SL 10:01 | DX: G47.30 Sleep apnea, unspecified (principal) | CPT/HCPCS: 95806 ==

== ENCOUNTER → 2024-05-03 05:00 | Outpatient (REF) | payer MEDICARE, MEDICAID, SELFPAY ==
[2024-05-03 08:23] LABS: Hematocrit 33.9 % (37-47); Hemoglobin 10.6 g/dL (12.0-15.0); Mean Corp Hgb Conc 31.3 g/dL (32-36); Mean Corpuscular Hgb 26.7 pg (27.0-32.0); Mean Corpuscular Volume 85.4 fL (81-99); Mean Platelet Vol. 10.3 fl (6.2-12.0); Platelet Count 346 K/mm3 (150-450); RBC Distribution Width CV 13.3 % (11.6-14.6); RBC Distribution Width SD 41.8 fl (35.1-43.9); Red Blood Count 3.97 M/mm3 (4.2-5.4); White Blood Count 7.7 K/mm3 (4.4-11.0)
[2024-05-03 08:41] LABS: ALB/GLOB Ratio 0.8 RATIO (0.9-2.4); AST(SGOT) 9 U/L (15-37); Alanine Aminotransfer ALT/SGPT 21 U/L (13-56); Alkaline Phosphatase 174 U/L (45-117); Anion Gap 4 (5-15); BUN 18 mg/dL (7-18); BUN/Creat Ratio 22.3 RATIO (10-20); Chloride 103 mmol/L (98-107); Creatinine, Serum 0.81 mg/dL (0.55-1.02); EST Glomerular Filtration Rate 78 mL/min (>60); Est Glom Filt Rate - Afr Amer 94 mL/min (>60); Globulin 3.7 g/dL (2.2-4.2); Glucose 316 mg/dL (74-106); Potassium 4.1 mmol/L (3.5-5.1); Protein, Total 6.7 g/dL (6.4-8.2); Sodium Level 135 mmol/L (136-145)
== END ==
LOC: OLS.SANC 05:00
PROVIDERS: Visit Provider Internal Medicine
DX: E11.9 Type 2 diabetes mellitus without complications (principal); I10 Essential (primary) hypertension; E78.5 Hyperlipidemia, unspecified
CPT/HCPCS: 36415; 80053; 85027

== ENCOUNTER → 2024-05-22 | Outpatient (REF) | payer MEDICARE, MEDICAID, SELFPAY ==
[2024-05-22 18:53] LABS: Hemoglobin A1c 8.6 % (3.8-5.6)
== END ==
LOC: OLS.SANC 05:00
PROVIDERS: Visit Provider Internal Medicine
DX: E11.9 Type 2 diabetes mellitus without complications (principal); E78.5 Hyperlipidemia, unspecified; I10 Essential (primary) hypertension
CPT/HCPCS: 36415; 83036

== ENCOUNTER → 2024-05-31 | Outpatient (REF) | payer MEDICARE, MEDICAID, SELFPAY ==
[2024-05-31 09:00] LABS: Hematocrit 33.8 % (37-47); Hemoglobin 10.7 g/dL (12.0-15.0); Mean Corp Hgb Conc 31.7 g/dL (32-36); Mean Corpuscular Hgb 27.1 pg (27.0-32.0); Mean Corpuscular Volume 85.6 fL (81-99); Mean Platelet Vol. 10.3 fl (6.2-12.0); Platelet Count 336 K/mm3 (150-450); RBC Distribution Width CV 13.6 % (11.6-14.6); RBC Distribution Width SD 42.5 fl (35.1-43.9); Red Blood Count 3.95 M/mm3 (4.2-5.4); White Blood Count 7.9 K/mm3 (4.4-11.0)
[2024-05-31 09:14] LABS: Anion Gap 7 (5-15); BUN 16 mg/dL (7-18); BUN/Creat Ratio 20.1 RATIO (10-20); Calcium,Total 8.8 mg/dL (8.5-10.1); Chloride 102 mmol/L (98-107); EST Glomerular Filtration Rate 79 mL/min (>60); Est Glom Filt Rate - Afr Amer 95 mL/min (>60); Glucose 285 mg/dL (74-106); Potassium 4.3 mmol/L (3.5-5.1); Sodium Level 136 mmol/L (136-145)
== END ==
LOC: OLS.SANC 05:00
PROVIDERS: Visit Provider Internal Medicine
DX: E11.9 Type 2 diabetes mellitus without complications (principal); E78.5 Hyperlipidemia, unspecified
CPT/HCPCS: 36415; 80048; 85027

== ENCOUNTER → 2024-06-12 | Outpatient (REF) | payer MEDICARE, MEDICAID, SELFPAY ==
[2024-06-12 09:51] LABS: BUN 13 mg/dL (7-18); BUN/Creat Ratio 17.2 RATIO (10-20); Calcium,Total 8.8 mg/dL (8.5-10.1); Chloride 105 mmol/L (98-107); Creatinine, Serum 0.76 mg/dL (0.55-1.02); EST Glomerular Filtration Rate 84 mL/min (>60); Est Glom Filt Rate - Afr Amer 101 mL/min (>60); Glucose 169 mg/dL (74-106); Phosphorus 4.3 mg/dL (2.5-4.9); Potassium 3.8 mmol/L (3.5-5.1); Sodium Level 140 mmol/L (136-145)
== END ==
LOC: OLS.SANC 05:00
PROVIDERS: Visit Provider Internal Medicine
DX: E11.9 Type 2 diabetes mellitus without complications (principal); E78.5 Hyperlipidemia, unspecified
CPT/HCPCS: 36415; 80069

== ENCOUNTER → 2024-06-29 05:00 | Outpatient (REF) | payer MEDICARE, MEDICAID, SELFPAY ==
[2024-06-29 08:21] LABS: Cholesterol 146 mg/dL (200); High Density Lipoprotein 29 mg/dL; Triglycerides 150 mg/dL; Very Low Density Lipoprotein 30 mg/dL (5-40)
== END ==
LOC: OLS.SANC 05:00
PROVIDERS: Visit Provider Internal Medicine
DX: I10 Essential (primary) hypertension (principal); E78.5 Hyperlipidemia, unspecified; E11.9 Type 2 diabetes mellitus without complications
CPT/HCPCS: 36415; 80061

== ENCOUNTER → 2024-07-17 05:00 | Outpatient (REF) | payer MEDICARE, MEDICAID, SELFPAY ==
[2024-07-17 10:53] LABS: Hematocrit 33.7 % (37-47); Hemoglobin 10.7 g/dL (12.0-15.0); Mean Corp Hgb Conc 31.8 g/dL (32-36); Mean Corpuscular Hgb 27.2 pg (27.0-32.0); Mean Corpuscular Volume 85.5 fL (81-99); Mean Platelet Vol. 10.3 fl (6.2-12.0); Platelet Count 353 K/mm3 (150-450); RBC Distribution Width CV 13.9 % (11.6-14.6); RBC Distribution Width SD 43.3 fl (35.1-43.9); Red Blood Count 3.94 M/mm3 (4.2-5.4)
[2024-07-17 11:15] LABS: ALB/GLOB Ratio 0.9 RATIO (0.9-2.4); AST(SGOT) 14 U/L (15-37); Alanine Aminotransfer ALT/SGPT 28 U/L (13-56); Albumin, Serum 2.9 g/dL (3.2-5.0); Alkaline Phosphatase 152 U/L (45-117); Anion Gap 7 (5-15); BUN 12 mg/dL (7-18); BUN/Creat Ratio 21.4 RATIO (10-20); Calcium,Total 9.1 mg/dL (8.5-10.1); Chloride 104 mmol/L (98-107); Cholesterol 146 mg/dL (200); Creatinine, Serum 0.56 mg/dL (0.55-1.02); EST Glomerular Filtration Rate 118 mL/min (>60); Est Glom Filt Rate - Afr Amer 143 mL/min (>60); Globulin 3.4 g/dL (2.2-4.2); Glucose 175 mg/dL (74-106); High Density Lipoprotein 39 mg/dL; Potassium 3.8 mmol/L (3.5-5.1); Protein, Total 6.3 g/dL (6.4-8.2); Sodium Level 138 mmol/L (136-145); Triglycerides 122 mg/dL; Very Low Density Lipoprotein 24 mg/dL (5-40)
== END ==
LOC: OLS.SANC 05:00
PROVIDERS: Visit Provider Internal Medicine
DX: E11.9 Type 2 diabetes mellitus without complications (principal); I10 Essential (primary) hypertension; E78.5 Hyperlipidemia, unspecified
CPT/HCPCS: 36415; 80053; 80061; 85027

== ENCOUNTER → 2024-08-02 | Outpatient (REF) | payer MEDICARE, MEDICAID, SELFPAY ==
[2024-08-02 08:47] LABS: Hematocrit 35.6 % (37-47); Hemoglobin 11.1 g/dL (12.0-15.0); Mean Corp Hgb Conc 31.2 g/dL (32-36); Mean Corpuscular Hgb 27.2 pg (27.0-32.0); Mean Corpuscular Volume 87.3 fL (81-99); Mean Platelet Vol. 10.8 fl (6.2-12.0); Platelet Count 323 K/mm3 (150-450); RBC Distribution Width CV 14.1 % (11.6-14.6); RBC Distribution Width SD 44.8 fl (35.1-43.9); Red Blood Count 4.08 M/mm3 (4.2-5.4); White Blood Count 8.8 K/mm3 (4.4-11.0)
[2024-08-02 09:08] LABS: Anion Gap 6 (5-15); BUN 14 mg/dL (7-18); BUN/Creat Ratio 19.6 RATIO (10-20); Calcium,Total 9.3 mg/dL (8.5-10.1); Chloride 105 mmol/L (98-107); Creatinine, Serum 0.72 mg/dL (0.55-1.02); EST Glomerular Filtration Rate 89 mL/min (>60); Est Glom Filt Rate - Afr Amer 108 mL/min (>60); Glucose 207 mg/dL (74-106); Potassium 4.4 mmol/L (3.5-5.1); Sodium Level 136 mmol/L (136-145)
== END ==
LOC: OLS.SANC 05:50
PROVIDERS: Visit Provider Internal Medicine
DX: D64.9 Anemia, unspecified (principal); E11.9 Type 2 diabetes mellitus without complications; I10 Essential (primary) hypertension; E78.5 Hyperlipidemia, unspecified
CPT/HCPCS: 36415; 80048; 85027

== ENCOUNTER → 2024-09-11 | Outpatient (REF) | payer MEDICARE, MEDICAID, SELFPAY ==
[2024-09-11 09:08] LABS: AST(SGOT) 15 U/L (15-37); Alanine Aminotransfer ALT/SGPT 30 U/L (13-56); Albumin, Serum 3.3 g/dL (3.2-5.0); Alkaline Phosphatase 169 U/L (45-117); Anion Gap 7 (5-15); BUN 15 mg/dL (7-18); BUN/Creat Ratio 17.4 RATIO (10-20); Calcium,Total 8.9 mg/dL (8.5-10.1); Chloride 105 mmol/L (98-107); Creatinine, Serum 0.86 mg/dL (0.55-1.02); EST Glomerular Filtration Rate 72 mL/min (>60); Est Glom Filt Rate - Afr Amer 87 mL/min (>60); Globulin 3.4 g/dL (2.2-4.2); Glucose 283 mg/dL (74-106); Potassium 4.3 mmol/L (3.5-5.1); Protein, Total 6.7 g/dL (6.4-8.2); Sodium Level 139 mmol/L (136-145)
== END ==
LOC: OLS.SANC 05:00
PROVIDERS: Visit Provider Internal Medicine
DX: E11.9 Type 2 diabetes mellitus without complications (principal); I10 Essential (primary) hypertension; E78.5 Hyperlipidemia, unspecified
CPT/HCPCS: 36415; 80053

== ENCOUNTER → 2024-09-12 | Outpatient (REF) | payer MEDICARE, MEDICAID, SELFPAY ==
[2024-09-12 08:45] LABS: Hematocrit 35.2 % (37-47); Hemoglobin 11.3 g/dL (12.0-15.0); Mean Corp Hgb Conc 32.1 g/dL (32-36); Mean Corpuscular Hgb 27.8 pg (27.0-32.0); Mean Corpuscular Volume 86.7 fL (81-99); Mean Platelet Vol. 10.2 fl (6.2-12.0); Platelet Count 352 K/mm3 (150-450); RBC Distribution Width CV 13.8 % (11.6-14.6); RBC Distribution Width SD 43.5 fl (35.1-43.9); Red Blood Count 4.06 M/mm3 (4.2-5.4); White Blood Count 8.5 K/mm3 (4.4-11.0)
== END ==
LOC: OLS.SANC 04:00
PROVIDERS: Referring Provider Internal Medicine; Visit Provider Internal Medicine
DX: E11.9 Type 2 diabetes mellitus without complications (principal); E78.5 Hyperlipidemia, unspecified; I10 Essential (primary) hypertension
CPT/HCPCS: 85027

== ENCOUNTER → 2024-09-22 | Outpatient (REF) | payer MEDICARE, MEDICAID, SELFPAY ==
[2024-09-22 08:03] LABS: Hemoglobin A1c 7.6 % (3.8-5.6)
== END ==
LOC: OLS.SANC 05:00
PROVIDERS: Visit Provider Internal Medicine
DX: E11.9 Type 2 diabetes mellitus without complications (principal)
CPT/HCPCS: 36415; 83036

== ENCOUNTER → 2024-10-30 | Outpatient (REF) | payer MEDICARE, MEDICAID, SELFPAY ==
[2024-10-30 08:40] LABS: Hematocrit 32.9 % (37-47); Hemoglobin 10.2 g/dL (12.0-15.0); Mean Corpuscular Hgb 27.1 pg (27.0-32.0); Mean Corpuscular Volume 87.3 fL (81-99); Mean Platelet Vol. 9.7 fl (6.2-12.0); Platelet Count 387 K/mm3 (150-450); RBC Distribution Width CV 14.8 % (11.6-14.6); RBC Distribution Width SD 46.8 fl (35.1-43.9); Red Blood Count 3.77 M/mm3 (4.2-5.4)
[2024-10-30 08:59] LABS: ALB/GLOB Ratio 0.8 RATIO (0.9-2.4); AST(SGOT) 18 U/L (15-37); Alanine Aminotransfer ALT/SGPT 25 U/L (13-56); Albumin, Serum 2.8 g/dL (3.2-5.0); Alkaline Phosphatase 113 U/L (45-117); Anion Gap 5 (5-15); BUN 14 mg/dL (7-18); BUN/Creat Ratio 20.3 RATIO (10-20); Calcium,Total 8.8 mg/dL (8.5-10.1); Chloride 108 mmol/L (98-107); Creatinine, Serum 0.69 mg/dL (0.55-1.02); EST Glomerular Filtration Rate 93 mL/min (>60); Est Glom Filt Rate - Afr Amer 112 mL/min (>60); Globulin 3.7 g/dL (2.2-4.2); Glucose 105 mg/dL (74-106); Potassium 4.4 mmol/L (3.5-5.1); Protein, Total 6.5 g/dL (6.4-8.2); Sodium Level 139 mmol/L (136-145)
== END ==
LOC: OLS.SANC 05:00
PROVIDERS: Visit Provider Internal Medicine
DX: E11.9 Type 2 diabetes mellitus without complications (principal)
CPT/HCPCS: 36415; 80053; 85027

== ENCOUNTER → 2024-11-10 | Outpatient (REF) | payer MEDICARE, MEDICAID, SELFPAY ==
[2024-11-10 09:48] LABS: Mucous, Urine 0 SEEN /hpf (<or=2+)
[2024-11-10 10:11] LABS: Color, Urine Yellow (Yellow); Glucose, Dipstick Normal (Normal); Ketone-Dipstick Negative (Negative); Leukocyte Esterase-Dipstick 100 /ul (Negative); Nitrite-Dipstick Negative (Negative); Occult Blood-Urine 250 /ul (Negative); Protein-Dipstick 500 mg/dl (Negative); Specific Gravity, Urine 1.025 (1.002-1.030); Urine Bilirubin Dipstick Negative (Negative); Urine Clarity Cloudy (Clear); Urine Urobilinogen Normal (Normal)
[2024-11-10 10:37] LABS: Bacteria 3+ /hpf (None Seen); White Blood Cells 10-25 SEEN /hpf (0-5)
[2024-11-10 10:38] LABS: Red Blood Cells-Urine 10-25 SEEN /hpf (0-5); Squamous Epithelial Cells - UA 0-5 SEEN /hpf (5-10)
== END ==
LOC: OLS.SANC 09:46
PROVIDERS: Referring Provider Internal Medicine; Visit Provider Internal Medicine
DX: R39.9 Unspecified symptoms and signs involving the genitourinary system (principal)
CPT/HCPCS: 81001; 87086; 87088

== ENCOUNTER → 2024-12-05 | Outpatient (REF) | payer MEDICARE, MEDICAID, SELFPAY ==
[2024-12-05 10:15] LABS: Hematocrit 35.9 % (37-47); Hemoglobin 11.1 g/dL (12.0-15.0); Mean Corp Hgb Conc 30.9 g/dL (32-36); Mean Corpuscular Hgb 26.5 pg (27.0-32.0); Mean Corpuscular Volume 85.7 fL (81-99); Mean Platelet Vol. 10.2 fl (6.2-12.0); Platelet Count 355 K/mm3 (150-450); RBC Distribution Width CV 14.7 % (11.6-14.6); RBC Distribution Width SD 46.5 fl (35.1-43.9); Red Blood Count 4.19 M/mm3 (4.2-5.4); White Blood Count 8.2 K/mm3 (4.4-11.0)
[2024-12-05 10:28] LABS: ALB/GLOB Ratio 0.9 RATIO (0.9-2.4); AST(SGOT) 12 U/L (15-37); Alanine Aminotransfer ALT/SGPT 23 U/L (13-56); Alkaline Phosphatase 137 U/L (45-117); Anion Gap 6 (5-15); BUN 14 mg/dL (7-18); BUN/Creat Ratio 20.1 RATIO (10-20); Chloride 99 mmol/L (98-107); EST Glomerular Filtration Rate 92 mL/min (>60); Est Glom Filt Rate - Afr Amer 111 mL/min (>60); Globulin 3.3 g/dL (2.2-4.2); Glucose 86 mg/dL (74-106); Protein, Total 6.3 g/dL (6.4-8.2); Sodium Level 136 mmol/L (136-145)
== END ==
LOC: OLS.SANC 04:00
PROVIDERS: Referring Provider Internal Medicine; Visit Provider Internal Medicine
DX: E11.9 Type 2 diabetes mellitus without complications (principal); E78.5 Hyperlipidemia, unspecified; I10 Essential (primary) hypertension
CPT/HCPCS: 36415; 80053; 85027

== ENCOUNTER → 2024-12-27 | Outpatient (REF) | payer MEDICARE, MEDICAID, SELFPAY ==
[2024-12-27 09:06] LABS: Hematocrit 34.5 % (37-47); Hemoglobin 10.9 g/dL (12.0-15.0); Mean Corp Hgb Conc 31.6 g/dL (32-36); Mean Corpuscular Hgb 27.2 pg (27.0-32.0); Mean Platelet Vol. 10.3 fl (6.2-12.0); Platelet Count 350 K/mm3 (150-450); RBC Distribution Width CV 14.6 % (11.6-14.6); RBC Distribution Width SD 45.5 fl (35.1-43.9); Red Blood Count 4.01 M/mm3 (4.2-5.4); White Blood Count 6.9 K/mm3 (4.4-11.0)
[2024-12-27 09:52] LABS: ALB/GLOB Ratio 0.8 RATIO (0.9-2.4); AST(SGOT) 19 U/L (15-37); Alanine Aminotransfer ALT/SGPT 32 U/L (13-56); Albumin, Serum 2.8 g/dL (3.2-5.0); Alkaline Phosphatase 152 U/L (45-117); Anion Gap 6 (5-15); BUN 8 mg/dL (7-18); BUN/Creat Ratio 14.4 RATIO (10-20); Calcium,Total 9.4 mg/dL (8.5-10.1); Chloride 104 mmol/L (98-107); Cholesterol 178 mg/dL (200); Creatinine, Serum 0.56 mg/dL (0.55-1.02); EST Glomerular Filtration Rate 119 mL/min (>60); Est Glom Filt Rate - Afr Amer 144 mL/min (>60); Globulin 3.4 g/dL (2.2-4.2); Glucose 149 mg/dL (74-106); High Density Lipoprotein 43 mg/dL; Potassium 3.9 mmol/L (3.5-5.1); Protein, Total 6.2 g/dL (6.4-8.2); Sodium Level 139 mmol/L (136-145); Triglycerides 181 mg/dL; Very Low Density Lipoprotein 36 mg/dL (5-40)
== END ==
LOC: OLS.SANC 05:00
PROVIDERS: Visit Provider Internal Medicine
DX: I10 Essential (primary) hypertension (principal); E11.9 Type 2 diabetes mellitus without complications; E78.5 Hyperlipidemia, unspecified
CPT/HCPCS: 36415; 80053; 80061; 85027

== ENCOUNTER → 2025-02-07 | Outpatient (REF) | payer MEDICARE, MEDICAID, SELFPAY ==
[2025-02-07 09:55] LABS: Hematocrit 34.7 % (37-47); Hemoglobin 11.1 g/dL (12.0-15.0); Mean Corpuscular Hgb 27.1 pg (27.0-32.0); Mean Corpuscular Volume 84.6 fL (81-99); Mean Platelet Vol. 10.3 fl (6.2-12.0); Platelet Count 353 K/mm3 (150-450); RBC Distribution Width CV 14.5 % (11.6-14.6); RBC Distribution Width SD 44.6 fl (35.1-43.9); White Blood Count 8.1 K/mm3 (4.4-11.0)
[2025-02-07 10:10] LABS: Anion Gap 10 (5-15); BUN 12 mg/dL (4-19); BUN/Creat Ratio 21.4 RATIO (10-20); Carbon Dioxide 27.2 mmol/L (21.0-32.0); Chloride 102 mmol/L (98-108); Creatinine, Serum 0.56 mg/dL (0.70-1.20); EST Glomerular Filtration Rate 106 (>60); Glucose 113 mg/dL (70-99); Potassium 4.2 mmol/L (3.3-5.1); Sodium Level 140 mmol/L (133-145)
== END ==
LOC: OLS.SANC 05:00
PROVIDERS: Visit Provider Internal Medicine
DX: E11.9 Type 2 diabetes mellitus without complications (principal); I10 Essential (primary) hypertension
CPT/HCPCS: 36415; 80048; 85027

== ENCOUNTER → 2025-02-26 | Outpatient (REF) | payer MEDICARE, MEDICAID, SELFPAY ==
[2025-02-26 10:07] LABS: Albumin, Serum 3.7 g/dL (3.5-5.0); Anion Gap 12 (5-15); BUN 15 mg/dL (4-19); BUN/Creat Ratio 22.4 RATIO (10-20); Calcium,Total 9.1 mg/dL (7.6-11.0); Carbon Dioxide 25.7 mmol/L (21.0-32.0); Chloride 101 mmol/L (98-108); Creatinine, Serum 0.68 mg/dL (0.70-1.20); EST Glomerular Filtration Rate 101 (>60); Glucose 211 mg/dL (70-99); Phosphorus 4.2 mg/dL (2.7-4.5); Sodium Level 139 mmol/L (133-145)
== END ==
LOC: OLS.SANC 04:00
PROVIDERS: Referring Provider Internal Medicine; Visit Provider Internal Medicine
DX: E11.9 Type 2 diabetes mellitus without complications (principal); I10 Essential (primary) hypertension; E78.5 Hyperlipidemia, unspecified
CPT/HCPCS: 36415; 80069

== ENCOUNTER → 2025-05-10 04:00 | Outpatient (REF) | payer MEDICARE, MEDICAID, SELFPAY ==
--- OUTSIDE RECORDS SUMMARY | 2025-05-10 04:35 | XMS RPT_ITS | CCD ---
Author Organization [facility] Care Team Providers Care Administration Dean Name Role Phone Kylah Luu Unavailable Unavailable Rasper, Kylah Escobar Unavailable Unavailable RASGINA, KYLAH Escobar Unavailable Unavailable RASGINA, KYLAH Escobar Unavailable Unavailable RASGINA, KYLAH Escobar Unavailable Unavailable SARBJIT GARNER Unavailable Unavailable AARON, THEO Unavailable Unavailable MARINE, JAYSON Unavailable Unavailable BICAKODAK, VERA Unavailable Unavailable RASKYLAH FUENTES Unavailable Unavailable RASKYLAH FUENTES Unavailable Unavailable SARBJIT GARNER Unavailable Unavailable GATITO, TERRIE Unavailable Unavailable MARINE, JAYSON Unavailable Unavailable GUERRERO, BRANDON Unavailable Unavailable RASPER, KYLAH Escobar Unavailable Unavailable SARBJIT GARNER Unavailable Unavailable RASKYLAH FUENTES Unavailable Unavailable RASKYLAH FUENTES Unavailable Unavailable JERRY DAVIS Unavailable Unavailable RASGINA, KYLAH Escobar Unavailable Unavailable MARINE, JAYSON Unavailable Unavailable GUERRERO, BRANDON Unavailable Unavailable MARINE, JAYSON Referring Unavailable RASKYLAH FUENTES Referring Unavailable Jared Guzman Primary Care Provider [phone] Jared Guzman Primary Care Provider [phone] Jared Guzman Primary Care Provider Unavailable Primary Care Provider Unavailabl e Jared Guzman Primary Care Provider [phone] Jared Guzman Primary Care Provider [phone] Jared Guzman Primary Care Provider [phone] SARBJIT GARNER Primary Care Unavail able ELDA REAVES Attending Unavailable Alejandro Stephenson APRN, CNP Unavailable Jared Singh Attending Provider Unavailab Jared Vazquez Referring Provider Unavailab Jared Vazquez Attending Provider Unavailab le Katsaros OLS, Jared Referring Provider Unavailab le Katsaros OLS, Jared Attending Provider Unavailab le Katsaros OLS, Jared Referring Provider Unavailab le Katsaros OLS, Jared Referring Unavailable Katsaros OLS, Jared Attending Unavailable Katsaros OLS, Jared Attending Unavailable Katsaros OLS, Jared Attending Unavailable Katsaros OLS, Jared Attending Unavailable Katsaros OLS, Jared Referring Unavailable Katsaros OLS, Jared Attending Unavailable Katsaros OLS, Jared Attending Unavailable Katsaros OLS, Jared Attending Unavailable Katsaros OLS, Jared Attending Unavailable Katsaros OLS, Jared Attending Unavailable Katsaros OLS, Jared Attending Unavailable Katsaros OLS, Jared Attending Unavailable Katsaros OLS, Jared Attending Unavailable Katsaros OLS, Jared Referring Unavailable Katsaros OLS, Jared Attending Unavailable MIXONKAROL Attending Unavailable Katsaros OLS, Jared Attending Unavailable Katsaros OLS, Jared Attending Unavailable Katsaros OLS, Jared Referring Unavailable Katsaros OLS, Jared Attending Unavailable Katsaros OLS, Jared Attending Unavailable KATSAROS, PETER Primary Care Unavailable VICENTE MIXON Attending Unavailable KATSAROS, PETER Primary Care Unavailable SHAWNA, ÁLVARO Attending Unavailable SHAWNA, ÁLVARO Admitting Unavailable SHAWN FARIAS Consulting Unavailable KATSAROS, PETER Primary Care Unavailable VIRGIL MEDEROS Attending Unavailable KATSAROS, PETER Primary Care Unavailable CHARLY, GRACE Admitting Unavailable CHARLY, GRACE Attending Unavailable ASUNCION VALENCIA Attending Unavailable KATSAROS, PETER Primary Care Unavailable ALEJANDRO MANDEL Attending Unavailable ALEJANDRO MANDEL Referring Unavailable KATSAROS, PETER Primary Care Unavailable LILO RIZO Attending Unavailable KATSAROS, PETER Primary Care Unavailable WANDA JOHNSON Attending Unavailable ROSY IBRARA Referring Unavailable KATSAROS, PETER Primary Care Unavailable KAUSHAL SCHULTZ Attending Unavailable KATSAROS, PETER Primary Care Unavailable MARGO GUERRERO Attending Unavailable KATSAROS, PETER Primary Care Unavailable ALEJANDRO MANDEL Attending Unavailable KATSAROS, JARED Referring Unavailable KATSAROS, PETER Primary Care Unavailable ASUNCION VALENCIA Attending Unavailable KATSAROS, PETER Primary Care Unavailable Medications Current Medications Medication Drug Class(es) Dates Sig (Normalized) Sig (Original) acetaminophen 325 mg / oxyCODONE hydrochloride 5 mg oral tablet (2 sources) Opioid Agonist Start: 06-20-2019 End: 06-23-2019 take 1 tablet by mouth every four hours as needed for pain oxyCODONE-acetami nophen (PERCOCET) 5-325 MG per tablet Indications: Diabetic foot infection (HCC) Take 1 tablet by mouth every 4 hours as needed for Pain for up to 3 days. 10 tablet 0 06/20/2019 06/23/2019 Active Start: 06-17-2019 oxyCODONE-acet aminophen (PERCOCET) 5-325 MG per tablet 1 tablet alginic acid 200 mg / calcium carbonate 80 mg / magnesium trisilicate 20 mg / sodium bicarbonate 70 mg oral tablet (1 source) Start: 11-28-2020 calcium carbonate (TUMS) chewable tablet 500 mg ALPRAZolam 0.25 mg oral tablet (1 source) Benzodiazepine Start: 11-26-2020 ALPRAZolam (XANAX) tablet 0.25 mg amLODIPine 10 mg oral tablet (20 sources) Dihydropyridine Calcium Channel Nano Start: 01-12-2024 End: 10-23-2024 take 1 tablet by mouth once daily amLODIPine (Norvasc) 10 MG tablet Take 1 tablet (10 mg) by mouth daily. 01/12/2024 Active amoxicillin 875 mg / clavulanate 125 mg oral tablet (4 sources) Penicillin-class Antibacterial Start: 10-23-2024 End: 10-29-2024 take 1 tablet by mouth twice daily amoxicillin-clavul anate (Augmentin) 875-125 MG tablet Take 1 tablet by mouth 2 times daily for 6 days. 12 tablet 10/23/2024 10/29/2024 Active ascorbic acid 500 mg oral tablet (4 sources) Vitamin C Start: 09-18-2020 End: 11-25-2020 take 500 mg by mouth twice daily 500 mg, Oral, 2 TIMES DAILY, First dose on Wed09/18/20 at 0900 ascorbic acid 60 mg / beta carotene 5000 unt / copper sulfate 40 mg / dl-alpha tocopheryl acetate 30 unt / sodium selenite 0.04 mg / zinc oxide 40 mg oral tablet (3 sources) Vitamin C Start: 09-18-2020 End: 11-25-2020 take 1 tablet by mouth once daily 1 tablet, Oral, DAILY, First dose on Wed09/18/20 at 0900 atorvastatin 10 mg oral tablet (20 sources) HMG-CoA Reductase Inhibitor Start: 11-23-2020 End: 10-23-2024 take 1 tablet by mouth once daily atorvastatin (Lipitor) 10 MG tablet Take 1 tablet by mouth daily. 11/26/2020 Active Start: 09-18-2020 take 20 mg by mouth once daily 20 mg, Oral, DAILY, First dose on Wed09/18/20 at 0900 Substituted for Simvastatin (ZOCOR). benzonatate 100 mg oral capsule (6 sources) Non-narcotic Antitussive Start: 09-18-2020 take 200 mg by mouth three times daily as needed for cough 200 mg, Oral, 3 TIMES DAILY PRN, Cough, Starting Wed09/18/20 at 0115 Do not crush or break. End: 11-25-2020 take 1 capsule by mouth three times daily as needed for cough benzonatate (TESSALON) 200 MG capsule Take 200 mg by mouth 3 times daily as needed for Cough 0 11/25/2020 Discontinued (Stop Taking at Discharge) Calcium Carbonate (20 sources) take 1 tablet by stacie th twice daily Calcium Carbonate (CALCIUM 500 PO) Take 1 tablet by mouth 2 times daily. Active End: 01-11-2024 take 1 tablet by mouth every four hours as needed for gastroesophageal reflux disease calcium carbonate (Tums) 500 MG chewable tablet Chew 500 mg every 4 hours as needed for indigestion or heartburn. 0 01/11/2024 Discontinued (Stop taking at discharge) carvedilol 25 mg oral tablet (20 sources) alpha-Adrenergic Nano, beta-Adrenergic Nano Start: 01-11-2024 End: 10-23-2024 take 1 tablet by mouth in the morning carvedilol (Coreg) 25 MG tablet Take 1 tablet (25 mg) by mouth in the morning and 1 tablet (25 mg) in the evening. Take with meals. 01/11/2024 Active cephalexin 500 mg oral capsule (7 sources) Cephalosporin Antibacterial Start: 01-22-2024 End: 01-29-2024 take 1 capsule by mouth three times daily cephalexin (Keflex) 500 MG capsule Take 1 capsule (500 mg) by mouth 3 times daily for 5 days. 15 capsule 0 01/22/2024 01/29/2024 Active Start: 06-27-2019 End: 07-04-2019 take 1 capsule by mouth four times daily cephALEXin (KEFLEX) 500 MG capsule Take 1 capsule by mouth 4 times daily for 7 days 28 capsule 0 06/27/2019 07/04/2019 Active cyclobenzaprine hydrochloride 10 mg oral tablet (3 sources) Muscle Relaxant Start: 09-18-2020 End: 11-25-2020 take 10 mg by mouth three times daily as needed for muscle spasms 10 mg, Oral, 3 TIMES DAILY PRN, Muscle spasms, Starting Wed09/18/20 at 0115 d-biotin 10 mg oral tablet (2 sources) take 1 tablet by mouth once daily Biotin 10 MG tablet Take 10 mg by mouth daily 0 Active 2 ml dicyclomine hydrochloride 10 mg/ml injection (2 sources) Anticholinergic Start: 12-08-2020 dicyclomine (BENTYL) injection 20 mg Start: 12-08-2020 take 2 capsules by m outh four times daily as needed for pain dicyclomine (BENTYL) 10 MG capsule Take 2 capsules by mouth 4 times daily as needed (abdominal pain/cramping) 30 capsule 3 12/08/2020 Active docusate sodium 100 mg oral tablet (19 sources) take 1 tablet by mouth once daily docusate sodium (Colace) 100 MG tablet Take 100 mg by mouth daily. Active docusate sodium 50 mg / sennosides, retirement 8.6 mg oral tablet (20 sources) take 1 tablet by mouth once daily senna-docusate sodium (Senokot-S) 8.6-50 MG tablet Take 1 tablet by mouth daily. Active 0.5 ml dulaglutide 1.5 mg/ml auto-injector (6 sources) GLP-1 Receptor Agonist Start: 2 End: 3 inject 0.75 mg by subcutaneous injection every week dulaglutide (Trulicity) 0.75 MG/0.5ML solution pen-injector Inject 0.75 mg under the skin 1 (one) time per week. 12 each 3 10/06/2022 10/06/2023 Active ferrous sulfate 325 mg oral tablet (20 sources) Start: 4 End: 4 take 1 tablet by mouth once daily at breakfast ferrous sulfate 325 (65 Fe) MG tablet Take 1 tablet (325 mg) by mouth daily (with breakfast). 01/11/2024 Active Start: 09-18-2020 take 325 mg by mouth twice daily at mealtime 325 mg, Oral, 2 TIMES DAILY WITH MEALS, First dose on Wed09/18/20 at 0800 Start: 05-21-2019 End: 11-25-2020 take 1 tablet by mouth once daily at breakfast ferrous sulfate 325 (65 Fe) MG tablet Take 1 tablet by mouth daily (with breakfast) 30 tablet 3 05/21/2019 11/25/2020 Discontinued (Stop Taking at Discharge) fluconazole 200 mg oral tablet (6 sources) Azole Antifungal Start: 08-20-2023 End: 09-01-2023 take 1 tablet by mouth once daily fluconazole (Diflucan) 200 MG tablet Take 1 tablet (200 mg) by mouth daily for 12 doses. 0 08/20/2023 09/01/2023 Active Start: 08-18-2023 End: 08-19-2023 fluconazole (Diflucan) table t 200 mg furosemide 40 mg oral tablet (7 sources) Loop Diuretic Start: 09-18-2020 take 80 mg by mouth once daily 80 mg, Oral, DAILY, First dose on Wed09/18/20 at 0900 Start: 06-15-2019 End: 06-18-2019 take 80 mg by mouth once daily 80 mg, Oral, DAILY, [facility] dose on Wed06/15/19 at 1345 End: 11-25-2020 take 1 tablet by mouth once daily furosemide (LASIX) 80 MG tablet Take 80 mg by mouth daily 0 11/25/2020 Discontinued (Stop Taking at Discharge) insulin glargine 100 unt/ml injectable solution (20 sources) Insulin Analog Start: 02-28-2025 inject 50 [IU] by subcutaneous injection twice daily insulin glargine (Lantus) 100 UNIT/ML injection Inject 50 Units under the skin 2 times daily. 50 mL 3 02/28/2025 Active Start: 10-19-2024 End: 10-23-2024 inject 44 [IU] by subcutaneous injection twice daily 44 Units, SubCUTAneous, 2 times daily, First dose (after last modification) on Wed10/19/24 at 2100 Start: 10-19-2024 inject 50 [IU] by macdonald bcutaneous injection once 50 Units, SubCUTAneous, Once, On Wed10/19/24 at 1415, For 1 dose Start: 10-19-2024 inject 10 [IU] by macdonald bcutaneous injection once 10 Units, SubCUTAneous, Once, On Gabi 10/19/24 at 1000, For 1 dose End: 02-28-2025 inject 47 [IU] by subcutaneous injection twice daily insulin glargine (Lantus) 100 UNIT/ML injection Inject 47 Units under the skin 2 times daily. 02/28/2025 Discontinued (Reorder) inject 45 [IU] by macdonald bcutaneous injection twice daily insulin glargine (Lantus) 100 UNIT/ML injection Inject 45 Units under the skin 2 times daily. Active inject 30 [IU] by macdonald bcutaneous injection twice daily insulin glargine (Lantus) 100 UNIT/ML injection Inject 30 Units under the skin 2 times daily. Active inulin 200 mg / lactobacillus rhamnosus gg [id number] unt oral capsule (1 source) Start: 09-18-2020 take 1 capsule by mouth once daily 1 capsule, Oral, DAILY, First dose on Wed09/18/20 at 0900 lactulose 667 mg/ml oral solution (20 sources) Osmotic Laxative take 20 g by mouth twice daily lactulose 20 GM/30ML oral solution Take 20 g by mouth 2 times daily. Active take 20 g by mouth twice daily l actulose (Kristalose) 20 g packet Take 20 g by mouth 2 times daily. Active linagliptin 5 mg oral tablet (6 sources) Dipeptidyl Peptidase 4 Inhibitor take 1 tablet by mouth once daily linaGLIPtin (Tradjenta) 5 MG tablet Take 5 mg by mouth daily. 0 Active lisinopril 40 mg oral tablet (20 sources) Angiotensin Converting Enzyme Inhibitor Start: take 0.5 tablet by mouth once daily lisinopril 40 MG tablet Take 0.5 tablets (20 mg) by mouth daily. 10/16/2023 Active Start: 10-10-2023 End: 10-17-2023 take 40 mg by mouth once daily 40 mg, Oral, Daily, [facility] dose on 10/10/23 at 1745, On hold since 10/11/2023 at 1823 until manually unheld Start: 10-07-2023 End: 10-10-2023 take 40 mg by mouth every twenty-four hours 40 mg, Oral, Every 24 hours, First dose on Gabi 10/07/23 at 1700, On hold since 10/10/2023 at 1727 until manually unheld Start: 08-18-2023 End: 08-19-2023 take 40 mg by mouth once daily 40 mg, Oral, Daily, Fir [facility] dose on Wed08/18/23 at 0900 Start: 06-28-2023 End: 07-01-2023 take 40 mg by mouth every twenty-four hours 40 mg, Oral, Every 24 hours, First dose on Wed06/28/23 at 0900 Start: 11-23-2020 take 40 mg by mouth once daily 40 mg, Oral, DAILY, First dose on Wed11/23/20 at 0900 Start: 09-18-2020 take 40 mg by mouth once daily 40 mg, Oral, DAILY, First dose on Wed09/18/20 at 0900 Start: 06-15-2019 End: 06-19-2019 take 40 mg by mouth once daily 40 mg, Oral, DAILY, [facility]ir [facility] dose on Gabi 06/15/19 at 1345 End: 10-14-2023 take 1 tablet by stacie th once daily lisinopril (PRINIVIL;ZESTRIL) 40 MG tablet Take 40 mg by mouth daily 0 Active loratadine 10 mg oral capsul e (20 sources) Loratadine 10 MG capsule Take by mouth. 0 Active metoclopramide 10 mg oral tablet (20 sources) Dopamine-2 Receptor Antagonist Start: 01-11-2024 End: 10-23-2024 take 1 tablet by mouth four times daily before mealtime metoclopramide (Reglan) 10 MG tablet Take 1 tablet (10 mg) by mouth 4 times daily (before meals and nightly). 01/11/2024 Active Start: 08-17-2023 metoclopramide (Reglan) injection 10 mg Start: 03-08-2023 metoclopramide (Reglan) injection 10 mg Start: 11-28-2020 End: 10-17-2023 take 10 mg by mouth four times daily 10 mg, Oral, 4 times daily, First dose on Gabi 10/07/23 at 1700 Start: 11-25-2020 End: 11-28-2020 inject 2 mL intravenous route every six hours metoclopramide (REGLAN) 5 MG/ML injection Infuse 2 mLs intravenously every 6 hours 240 mL 0 11/25/2020 11/28/2020 Discontinued (Stop Taking at Discharge) Start: 11-24-2020 End: 11-28-2020 metoclopramide (REGLAN) inje ction 10 mg Start: 09-28-2020 End: 11-22-2020 inject 2 mL intravenous route every six hours metoclopramide (REGLAN) 5 MG/ML injection Infuse 2 mLs intravenously every 6 hours 240 mL 0 09/28/2020 11/22/2020 Discontinued (LIST CLEANUP) Start: 09-25-2020 End: 10-01-2020 metoclopramide (REGLAN) inje ction 10 mg Start: 09-23-2020 End: 09-25-2020 metoclopramide (REGLAN) tabl et 10 mg Start: 09-20-2020 End: 09-23-2020 metoclopramide (REGLAN) inje ction 10 mg End: 01-11-2024 metoclopramide (Reglan) 5 MG tablet Indications: Nausea and Vomiting Take 5 mg by mouth in the morning and 5 mg at noon and 5 mg in the evening and 5 mg before bedtime. Before meals and at bedtime. 0 01/11/2024 Discontinued (Stop taking at discharge) metoprolol tartrate 25 mg oral tablet (20 sources) beta-Adrenergic Nano Start: 11-26-2020 End: 01-11-2024 take 1 tablet by mouth in the morning metoprolol tartrate (Lopressor) 25 MG tablet Take 1 tablet by mouth in the morning and 1 tablet before bedtime. 0 11/28/2020 Active Start: 09-21-2020 metoprolol (LO PRESSOR) injection 5 mg Multiple Vitamin (multivitamin) capsule (20 sources) take 1 capsule by mouth once daily Multiple Vitamin (multivitamin) capsule Take 1 capsule by mouth daily. Suspended take 1 capsule by mouth once eve ly Multiple Vitamin (multivitamin) capsule Take 1 capsule by mouth daily. Active take 1 capsule by mouth once eve ly Multiple Vitamin (multivitamin) capsule Take 1 capsule by mouth daily. 0 Active Multiple Vitamins-Minerals (THERAPEUTIC MULTIVITAMIN-MINERALS) tablet (3 sources) take 1 tablet by mouth once daily Multiple Vitamins-Minerals (THERAPEUTIC MULTIVITAMIN-MINERALS) tablet Take 1 tablet by mouth daily 0 Active ondansetron 4 mg disintegrating oral tablet (20 sources) Serotonin-3 Receptor Antagonist Start : 12-01 End: 12-08 take 1 tablet by mouth every eight hours as needed for nausea and vomiting ondansetron ODT (Zofran-ODT) 4 MG disintegrating tablet Take 1 tablet (4 mg) by mouth every 8 hours as needed for nausea or vomiting for up to 7 days. 20 tablet 12/01/2024 12/08/2024 Active Start: 10-19-2024 End: 10-19-2024 4 mg, IntraVENous, Once, On Gabi 10/19/24 at 0415, For 1 dose Start: 10-19-2024 End: 10-19-2024 4 mg, IntraVENous, Once, On Gabi 10/19/24 at 0415, For 1 dose Start: 10-18-2024 End: 10-18-2024 4 mg, IntraVENous, Once, On 10/18/24 at 1645, For 1 dose Start: 01-22-2024 End: 01-27-2024 take 1 tablet by mouth every six hours ondansetron (Zofran) 4 MG tablet Take 1 tablet (4 mg) by mouth in the morning and 1 tablet (4 mg) at noon and 1 tablet (4 mg) in the evening and 1 tablet (4 mg) before bedtime. Do all this for 3 days. 12 tablet 0 01/22/2024 01/27/2024 Start: 01-22-2024 End: 01-22-2024 ondansetron (Zofran) injecti on 4 mg Start: 12-29-2023 End: 01-11-2024 take 1 tablet by mouth every six hours as needed for nausea and vomiting ondansetron (Zofran) 4 MG tablet Take 1 tablet (4 mg) by mouth every 6 hours as needed for nausea or vomiting for up to 3 days. 12 tablet 0 12/29/2023 01/11/2024 Discontinued (Stop taking at discharge) Start: 12-29-2023 End: 12-29-2023 ondansetron ODT (Zofran-ODT) disintegrating tablet 4 mg Start: 12-28-2023 End: 12-28-2023 ondansetron (Zofran) injecti on 4 mg Start: 10-16-2023 End: 12-16-2023 ondansetron ODT (Zofran-ODT) disintegrating tablet 4 mg Start: 10-07-2023 End: 10-14-2023 take 1 tablet by mouth every six hours as needed for nausea 4 mg, Oral, Every 6 hours PRN, nausea, Starting on Gabi 10/07/23 at 1654 Start: 08-08-2023 End: 08-08-2023 ondansetron (Zofran) injecti on 4 mg Start: 06-28-2023 End: 07-01-2023 take 4 mg intravenously every six hours as needed for nausea and vomiting 4 mg, IntraVENous, Every 6 hours PRN, nausea, vomiting, Starting on 06/28/23 at 0846 Administer if oral route cannot be used. Start: 12-08-2020 End: 12-08-2020 ondansetron (ZOFRAN) injecti on 8 mg Start: 12-08-2020 End: 10-17-2023 take 4 mg by mouth every six hours as needed for nausea Start: 12-08-2020 ondansetron (Z ofran) 4 MG tablet Take 8 mg by mouth. 0 12/08/2020 Active Start: 11-22-2020 End: 11-22-2020 ondansetron (ZOFRAN) injecti on 4 mg Start: 09-17-2020 End: 09-18-2020 ondansetron (ZOFRAN) injecti on 8 mg Start: 09-17-2020 End: 09-17-2020 ondansetron (ZOFRAN) 4 MG/2M L injection End: 11-25-2020 take 1 tablet by mouth every eight hours as needed for nausea ondansetron (ZOFRAN) 4 MG tablet Take 4 mg by mouth every 8 hours as needed for Nausea or Vomiting 0 11/25/2020 Discontinued (Stop Taking at Discharge) pantoprazole 40 mg delayed release oral tablet (20 sources) Proton Pump Inhibitor Start: 09-28-2020 End: 10-17-2023 pantoprazole (ProtoNix) 40 MG EC tablet Take 40 mg by mouth. 11/26/2020 Active pantoprazole (PROTONIX) injection 40 mg (1 source) Start: 09-19-2020 pantoprazole (PROTONIX) injection 40 mg phenol 14 mg/ml mouthwash (1 source) Start: 06-17-2019 phenol 1.4 % m outh spray 1 spray polyethylene glycol 3350 [id number] mg / potassium chloride 2970 mg / sodium bicarbonate 6740 mg / sodium chloride 5860 mg / sodium sulfate 67340 mg powder for oral solution (1 source) Osmotic Laxative Start: 12-21-2024 End: 12-22-2024 polyethylene glycol (GaviLyte-G) 236 g solution Indications: Fecal occult blood test positive , History of anemia Please take as directed by GI office for colonoscopy prep. 4000 mL 12/21/2024 12/22/2024 Active 1 ml promethazine hydrochloride 25 mg/ml injection (2 sources) Phenothiazine Start: 09-23-2020 promethazine (PHENERGAN) injection 25 mg Start: 09-23-2020 End: 09-23-2020 promethazine (PHENERGAN) tab let 25 mg insulin, regular, human 500 unt/ml injectable solution (20 sources) Insulin Start: 11-28-2024 End: 02-15-2025 insulin regular (HumuLIN R) 500 UNIT/ML CONCENTRATED injection U500 150 before breakfast 130 before lunch and 150 units before dinner If blood sugar before meal is 90-120, give half dose If less than 90 and patient eating little carbohydrates for meal, hold u500 dose. 02/15/2025 Active Start: 10-22-2024 End: 10-23-2024 60 Units, SubCUTAneous, 3 ti mes daily before meals, First dose (after last modification) on Wed10/22/24 at 0730, Give 50% of the dose if pt is eating around 50% of his meal Note High CONCENTRATION: 500 units/mL, Did you verify the patient is taking U-500 insulin? With whom? Yes, Patient, How does the patient measure their dose of U-500 insulin at home? U-500 insulin syringe Start: 10-20-2024 End: 10-21-2024 90 Units, SubCUTAneous, 3 ti mes daily before meals, First dose (after last modification) on Wed10/20/24 at 1100, Note High CONCENTRATION: 500 units/mL, Did you verify the patient is taking U-500 insulin? With whom? Yes, Patient, How does the patient measure their dose of U-500 insulin at home? U-500 insulin syringe Start: 10-19-2024 End: 10-21-2024 0-18 Units, SubCUTAneous, 3 times daily with meals, First dose on Gabi 10/19/24 at 1700, 0-150 give scheduled units - no extra 151-200 give 3 extra unit 201-250 give 6 extra units 251-300 give 9 extra units 301-350 give 12 extra units 351-400 give 15 extra units 401-450 give 18 extra units units and call office Start: 10-19-2024 End: 10-20-2024 65 Units, SubCUTAneous, 3 ti mes daily before meals, First dose on Gabi 10/19/24 at 1615, Note High CONCENTRATION: 500 units/mL, Did you verify the patient is taking U-500 insulin? With whom? Yes, Patient, How does the patient measure their dose of U-500 insulin at home? U-500 insulin syringe Start: 01-11-2024 End: 01-10-2025 inject 120 [IU] by subcutaneous injection once daily before breakfast insulin regular (HumuLIN R U-500) 500 UNIT/ML CONCENTRATED injection Inject 120 Units under the skin every morning (before breakfast). 01/11/2024 10/23/2024 Discontinued (Stop taking at discharge) Start: 01-11-2024 End: 10-23-2024 inject 100 [IU] by subcutaneous injection once daily before dinner insulin regular (HumuLIN R U-500) 500 UNIT/ML CONCENTRATED injection Inject 100 Units under the skin daily (before dinner). 01/11/2024 10/23/2024 Discontinued (Stop taking at discharge) Start: 11-25-2023 End: 01-11-2024 insulin regular (HumuLIN R) 500 UNIT/ML CONCENTRATED injection 250 units before breakfast/200 units before lunch and dinner 60 mL 3 11/25/2023 01/11/2024 Discontinued (Stop taking at discharge) Start: 10-17-2023 End: 10-17-2023 insulin regular (HumuLIN R U -500) 500 UNIT/ML CONCENTRATED injection Inject 250 Units under the skin every morning (before breakfast). Do not start before October 17, 2023. 0 10/17/2023 Suspended Start: 10-17-2023 End: 10-17-2023 250 Units, SubCUTAneous, Eve ly before breakfast, First dose on 10/17/23 at 0700, Note High CONCENTRATION: 500 units/mL, Did you verify the patient is taking U-500 insulin? With whom? Yes, Patient, How does the patient measure their dose of U-500 insulin at home? Insulin pen Start: 10-16-2023 End: 10-23-2024 inject 90 [IU] by subcutaneous injection once daily before lunch insulin regular (HumuLIN R U-500) 500 UNIT/ML CONCENTRATED injection Inject 90 Units under the skin daily (before lunch). 01/12/2024 10/23/2024 Discontinued (Stop taking at discharge) Start: 10-16-2023 End: 01-11-2024 inject 150 [IU] by subcutaneous injection once daily before lunch insulin regular (HumuLIN R U-500) 500 UNIT/ML CONCENTRATED injection Inject 150 Units under the skin daily (before lunch). 0 10/17/2023 01/11/2024 Discontinued (Stop taking at discharge) Start: 10-09-2023 End: 10-09-2023 120 Units, SubCUTAneous, 3 t imes daily with meals, First dose (after last modification) on Wed10/09/23 at 1300, Note High CONCENTRATION: 500 units/mL, Did you verify the patient is taking U-500 insulin? With whom? Yes, Patient, How does the patient measure their dose of U-500 insulin at home? Insulin pen Start: 10-08-2023 End: 10-09-2023 100 Units, SubCUTAneous, 3 t imes daily with meals, First dose on Wed10/08/23 at 1700, Note High CONCENTRATION: 500 units/mL, Did you verify the patient is taking U-500 insulin? With whom? Yes, Patient, How does the patient measure their dose of U-500 insulin at home? Insulin pen Start: 08-19-2023 End: 08-19-2023 insulin regular (HumuLIN R U -500) CONCENTRATED injection 150 Units Start: 08-18-2023 End: 08-19-2023 insulin regular (HumuLIN R U -500) CONCENTRATED injection 100 Units Start: 06-30-2023 End: 07-01-2023 insulin regular (HumuLIN R U -500) CONCENTRATED injection 100 Units Start: 11-29-2020 insulin regula r human (HUMULIN R U-500 KWIKPEN) 500 UNIT/ML SOPN concentrated injection pen Inject 80 Units into the skin every morning (before breakfast) 1 pen 0 11/29/2020 Active Start: 11-28-2020 insulin regula r human (HUMULIN R U-500 KWIKPEN) 500 UNIT/ML SOPN concentrated injection pen Inject 55 Units into the skin daily (before lunch) 1 pen 0 11/28/2020 Active Start: 11-28-2020 insulin regula r human (HUMULIN R U-500 KWIKPEN) 500 UNIT/ML SOPN concentrated injection pen Inject 75 Units into the skin Daily with supper 1 pen 0 11/28/2020 Active Start: 11-24-2020 End: 11-25-2020 insulin regular human (humuL IN R U-500 KWIKPEN) 500 UNIT/ML concentrated injection pen 40 Units Start: 11-23-2020 End: 11-25-2020 insulin regular human (humuL IN R U-500 KWIKPEN) 500 UNIT/ML concentrated injection pen 90 Units Start: 11-23-2020 End: 11-28-2020 insulin regular (HUMULIN R;N OVOLIN R) injection 0-16 Units Start: 11-22-2020 insulin regula r (HUMULIN R;NOVOLIN R) injection 10 Units Start: 10-01-2020 insulin regula r human (humuLIN R U-500 KWIKPEN) 500 UNIT/ML concentrated injection pen 160 Units Start: 09-30-2020 End: 11-28-2020 insulin regular human (HUMUL IN R U-500 KWIKPEN) 500 UNIT/ML SOPN concentrated injection pen 160 units before breakfast, 110 units before lunch, 150 units before dinner 1 pen 0 09/30/2020 11/28/2020 Discontinued (Stop Taking at Discharge) Start: 09-23-2020 insulin regula r human (humuLIN R U-500 KWIKPEN) 500 UNIT/ML concentrated injection pen 15 Units Start: 08-28-2020 End: 09-30-2020 insulin regular human (HUMUL IN R U-500 KWIKPEN) 500 UNIT/ML SOPN concentrated injection pen 280 units TID AC meals 1 pen 0 08/28/2020 09/30/2020 Discontinued (REORDER) Start: 06-21-2019 End: 01-02-2020 insulin regular human (HUMUL IN R U-500 KWIKPEN) 500 UNIT/ML SOPN concentrated injection pen Inject 140 Units into the skin every morning (before breakfast) 1 pen 1 06/21/2019 01/02/2020 Discontinued (LIST CLEANUP) Start: 06-20-2019 End: 01-02-2020 insulin regular human (HUMUL IN R U-500 KWIKPEN) 500 UNIT/ML SOPN concentrated injection pen Inject 100 Units into the skin Daily with supper 1 pen 0 06/20/2019 Active Start: 06-16-2019 insulin regula r (HUMULIN R;NOVOLIN R) injection 10 Units Start: 06-16-2019 insulin regula r (HUMULIN R;NOVOLIN R) injection 18 Units Start: 06-16-2019 insulin regula r (HUMULIN R;NOVOLIN R) injection 30 Units Start: 06-15-2019 End: 10-17-2023 insulin regular human (humuL IN R U-500 KWIKPEN) 500 UNIT/ML concentrated injection pen 140 Units Start: 06-15-2019 End: 06-19-2019 insulin regular (HUMULIN R;N OVOLIN R) injection 0-16 Units Start: 06-15-2019 insulin regula r (HUMULIN R;NOVOLIN R) injection 16 Units Start: 05-20-2019 End: 06-20-2019 insulin regular human (HUMUL IN R U-500 KWIKPEN) 500 UNIT/ML SOPN concentrated injection pen Inject 150 Units into the skin 3 times daily (before meals) 1 pen 3 05/20/2019 06/20/2019 Discontinued (Stop Taking at Discharge) End: 11-28-2024 inject 130 [IU] by subcutaneous injection three times daily insulin regular (HumuLIN R) 500 UNIT/ML CONCENTRATED injection Inject 130 Units under the skin 3 times daily. 11/28/2024 Discontinued (Reorder) inject 125 [IU] by s ubcutaneous injection three times daily insulin regular (HumuLIN R) 500 UNIT/ML CONCENTRATED injection Inject 125 Units under the skin 3 times daily. Active inject 95 [IU] by macdonald bcutaneous injection three times daily insulin regular (HumuLIN R) 500 UNIT/ML CONCENTRATED injection Inject 95 Units under the skin 3 times daily. Active inject 70 [IU] by macdonald bcutaneous injection once daily insulin regular (HumuLIN R) 500 UNIT/ML CONCENTRATED injection Inject under the skin. 70 units daily with meals(TID) 0 Active End: 11-25-2023 inject 250 [IU] by subcutaneous injection before breakfast insulin regular (HumuLIN R) 500 UNIT/ML CONCENTRATED injection Inject under the skin. 250 units before breakfast/200 units before lunch and dinner 0 11/25/2023 Discontinued (Reorder) End: 10-17-2023 insulin regular (HumuLIN R U-500 KWIKPEN) 500 UNIT/ML CONCENTRATED injection Inject under the skin 3 times daily. 285 units before breakfast/260 units before lunch/285 units before dinner 0 Suspended simvastatin 20 mg oral tablet (20 sources) HMG-CoA Reductase Inhibitor Start: 06-15-2019 End: 11-25-2020 take 20 mg by mouth once daily 20 mg, Oral, NIGHTLY, First dose on Gabi 06/15/19 at 2100 End: 06-28-2023 simvastatin (Zocor) 20 MG ta blet Every 24 hours. 0 06/28/2023 Discontinued sodium chloride flush 0.9 % injection 3 mL (1 source) Start: 12-08-2020 sodium chloride flush 0.9 % injection 3 mL stomahesive in petrolatum (ET MIX) (1 source) Start: 11-26-2020 stomahesive in petrolatum (ET MIX) sulfamethoxazole 800 mg / trimethoprim 160 mg oral tablet (2 sources) Dihydrofolate Reductase Inhibitor Antibacterial, Sulfonamide Antimicrobial Start: 12-08-2020 End: 12-15-2020 take 1 tablet by mouth twice daily sulfamethoxazole -trimethoprim (BACTRIM DS) 800-160 MG per tablet Take 1 tablet by mouth 2 times daily for 7 days 14 tablet 0 12/08/2020 12/15/2020 Active Start: 06-27-2019 End: 07-04-2019 take 1 tablet by mouth twice daily sulfamethoxazole-trimethoprim (BACTRIM D S) 800-160 MG per tablet Take 1 tablet by mouth 2 times daily for 7 days 14 tablet 0 06/27/2019 07/04/2019 Active tiZANidine 4 mg oral tablet (3 sources) Central alpha-2 Adrenergic Agonist Start: 09-18-2020 End: 11-25-2020 take 4 mg by mouth every eight hours as needed for muscle spasms 4 mg, Oral, EVERY 8 HOURS PRN, Muscle spasms, Starting 09/18/20 at 0115 torsemide 10 mg oral tablet (20 sources) Loop Diuretic Start: 01-12-2024 End: 10-23-2024 take 1 tablet by mouth once daily torsemide (Demadex) 10 MG tablet Take 1 tablet (10 mg) by mouth daily. 01/12/2024 Active traMADol hydrochloride 50 mg oral tablet (2 sources) Opioid Agonist Start: 09-09-2020 End: 09-28-2020 take 50 mg by mouth every twelve hours as needed for pain 50 mg, Oral, EVERY 12 HOURS PRN, Pain Moderate (4-6), Starting 09/18/20 at 0115 triamcinolone acetonide 1 mg/ml topical cream (20 sources) Corticosteroid triamcinolone (Kenalog) 0.1 % cream Apply topically daily. Active (2 sources) End: 10-17-2023 Completed/Discontinued Medications Medication Drug Class(es) Dates Sig (Normalized) Sig (Original) Acetaminophen (20 sources) Start: 10-18-2024 End: 10-23-2024 take 1 tablet by mouth every six hours as needed for pain and fever acetaminophen (Tylenol) tablet 650 mg Start: 01-27-2024 End: 01-27-2024 acetaminophen (Tylenol) tabl et 1,000 mg Start: 12-09-2023 End: 12-09-2023 acetaminophen (Tylenol) tabl et 1,000 mg Start: 08-17-2023 End: 08-19-2023 take 1 tablet by mouth every six hours as needed for pain and fever acetaminophen (Tylenol) tablet 650 mg Start: 06-28-2023 End: 07-01-2023 take 1 tablet by mouth every six hours as needed for pain and fever acetaminophen (Tylenol) tablet 650 mg Start: 11-25-2020 End: 01-11-2024 take 2 tablets by mouth every four hours as needed for pain acetaminophen (TYLENOL) 325 MG tablet Take 2 tablets by mouth every 4 hours as needed for Pain 120 tablet 3 11/25/2020 Active Start: 11-23-2020 End: 10-17-2023 take 1 tablet by mouth every four hours as needed for pain 650 mg, Oral, Every 4 hours PRN, mild pain (1-3), Starting on Gabi 10/07/23 at 1650, Maximum dose of acetaminophen is 4000 mg from all sources in 24 hours. Start: 09-18-2020 acetaminophen (TYLENOL) tablet 650 mg End: 11-25-2020 take 2 tablets by mouth every six hours as needed for pain acetaminophen (TYLENOL) 325 MG tablet Take 650 mg by mouth every 6 hours as needed for Pain 0 11/25/2020 Discontinued (Stop Taking at Discharge) 20 ml albumin human, retirement 250 mg/ml injection (2 sources) Human Serum Albumin Start: 10-09-2023 End: 10-10-2023 50 g, IntraVENous, at 120 mL/hr, Once, On Wed10/09/23 at 2300, For 1 dose, Infusion rate depends on indication and clinical situation. In emergencies, may administer as rapidly as necessary to improve clinical condition. After initial volume replacement: 5%: Do not exceed 2 to 4 mL/minute in patients with normal plasma volume; 5 to 10 mL/minute in patients with hypoproteinemia 25%: Do not exceed 1 mL/minute in patients with normal plasma volume; 2 to 3 mL/minute in patients with hypoproteinemia albuterol 0.833 mg/ml / ipratropium bromide 0.167 mg/ml inhalation solution (2 sources) Anticholinergic, beta2-Adrenergic Agonist Start: 10-18-2024 End: 10-23-2024 3 mL, Nebulization, 4 times daily PRN, shortness of breath, wheezing, Starting on Wed10/18/24 at 2249 aluminum hydroxide 40 mg/ml / magnesium hydroxide 40 mg/ml / simethicone 4 mg/ml oral suspension (2 sources) Start: 10-14-2023 End: 10-17-2023 take 20 mL by mouth every six hours as needed 20 mL, Oral, Every 6 hours PRN, to be given whenever Zofran is given, Starting on Wed10/14/23 at 1557 ARIPiprazole 10 mg oral tablet (20 sources) Atypical Antipsychotic Start: 10-19-2024 End: 10-23-2024 take 10 mg by mouth once daily 10 mg, Oral, Daily, First dose on Wed10/19/24 at 0900 Start: 10-07-2023 End: 10-17-2023 take 10 mg by mouth every twenty-four hours 10 mg, Oral, Every 24 hours, First dose on Wed10/07/23 at 1700 Start: 08-18-2023 End: 10-12-2023 take 10 mg by mouth once daily 10 mg, Oral, Daily, Fir st dose on Wed08/18/23 at 0900 Start: 06-15-2019 End: 07-01-2023 take 10 mg by mouth once daily 10 mg, Oral, Daily, Fir st dose on Wed06/28/23 at 0900 aspirin 81 mg delayed release oral tablet (20 sources) Platelet Aggregation Inhibitor, Nonsteroidal Anti-inflammatory Drug Start: 06-28-2023 End: 06-28-2023 aspirin EC tablet 325 mg Start: 10-08-2021 End: 10-23-2024 take 1 tablet by mouth once daily aspirin 81 MG EC tablet Take 1 tablet by mouth daily. 10/08/2021 Active Start: 11-24-2020 End: 11-24-2020 aspirin EC tablet 325 mg Start: 11-23-2020 take 81 mg by mouth once daily 81 mg, Oral, DAILY, First dose on Wed11/23/20 at 0900 Start: 09-18-2020 take 81 mg by mouth once daily 81 mg, Oral, DAILY, First dose on Wed09/18/20 at 0900 Start: 06-15-2019 take 81 mg by mouth once daily 81 mg, Oral, DAILY, First dose on Gabi 06/15/19 at 1345 End: 11-25-2020 take 1 tablet by mouth once daily aspirin 81 MG tablet Take 81 mg by mouth daily 0 11/25/2020 Discontinued (Stop Taking at Discharge) biotin 10 mg oral tablet (3 sources) End: 11-25-2020 take 1 tablet by mouth once daily Biotin 10 MG tablet Take 10 mg by mouth daily 0 11/25/2020 Discontinued (Stop Taking at Discharge) bisacodyl 5 mg delayed release oral tablet (20 sources) Stimulant Laxative Start: 10-18-2024 End: 10-23-2024 Start: 09-18-2020 End: 11-25-2020 take 1 tablet by mouth every twelve hours as needed for constipation bisacodyl (DULCOLAX) 5 MG EC tablet Take 1 tablet by mouth every 12 hours as needed for Constipation 222 tablet 5 11/25/2020 Active Start: 09-18-2020 End: 11-25-2020 take 10 mg rectal route once daily as needed for constipation 10 mg, Rectal, DAILY PRN, Constipation, Starting Wed09/18/20 at 0115 take 1 tablet by stacie th every twenty-four hours as needed for constipation bisacodyl (Dulcolax) 5 MG EC tablet Take 5 mg by mouth Daily as needed for constipation. Do not crush, chew, or split. Active take 1 tablet by stacie th twice daily as needed for constipation bisacodyl (Dulcolax) 5 MG EC tablet Take 5 mg by mouth 2 times daily as needed for constipation. Do not crush, chew, or split. Active take 10 mg rectal ro nikolai once daily as needed for constipation bisacodyl (DULCOLAX) [address] 10 mg rectally daily as needed for Constipation 0 Active calcium chloride 0.0014 meq/ml / potassium chloride 0.004 meq/ml / sodium chloride 0.103 meq/ml / sodium lactate 0.028 meq/ml injectable solution (5 sources) Start: 10-19-2024 End: 10-20-2024 take 100 mL intravenously every hour 100 mL/hr, IntraVENous, Continuous, Starting on Wed10/20/24 at 0800, For 8 hours Start: 09-17-2020 End: 09-17-2020 lactated ringers bolus castor oil 0.788 mg/mg / bhutanese balsam 0.087 mg/mg topical ointment (4 sources) Standardized Chemical Allergen Start: 01-17-2019 End: 09-17-2020 Balsam [place] Oil (VENELEX) OINT ointment Apply topically daily 1 Tube 0 01/17/2019 09/17/2020 Discontinued cefpodoxime 200 mg oral tablet (4 sources) Cephalosporin Antibacterial Start: 08-08-2023 End: 08-19-2023 take 1 tablet by mouth twice daily cefpodoxime (Vantin) 200 MG tablet Take 1 tablet (200 mg) by mouth 2 times daily for 10 days. 20 tablet 0 08/08/2023 08/19/2023 Discontinued (Stop taking at discharge) cefTRIAXone (Rocephin) 1,000 mg in sodium chloride 0.9 % 50 mL IVPB Mini-Bag Plus (5 sources) Start: 01-22-2024 End: 01-22-2024 cefTRIAXone (Rocephin) 1,000 mg in sodium chloride 0.9 % 50 mL IVPB Mini-Bag Plus Start: 08-17-2023 End: 08-17-2023 cefTRIAXone (Rocephin) 1,000 mg in sodium chloride 0.9 % 50 mL IVPB Mini-Bag Plus Start: 08-08-2023 End: 08-08-2023 cefTRIAXone (Rocephin) 1,000 mg in sodium chloride 0.9 % 50 mL IVPB Mini-Bag Plus cefTRIAXone (ROCEPHIN) 1000 mg IVPB in NS 50ml minibag (1 source) Start: 12-08-2020 End: 12-08-2020 cefTRIAXone (ROCEPHIN) 1000 mg IVPB in NS 50ml minibag cefTRIAXone (Rocephin) 2,000 mg in sodium chloride 0.9 % 50 mL IVPB Mini-Bag Plus (2 sources) Start: 10-18-2024 End: 10-18-2024 2,000 mg, IntraVENous, at 100 mL/hr, Administer over 30 Minutes, Once, On Wed10/18/24 at 1920, For 1 dose, Mini-Bag Plus bag, Suspected Indication (Select all that apply): Intra-Abdominal Infection cetirizine hydrochloride 10 mg oral tablet (2 sources) Histamine-1 Receptor Antagonist Start: 06-28-2023 End: 07-01-2023 cetirizine (ZyrTEC) tablet 10 mg cholecalciferol 9.52 unt/ml / glucose 357 mg/ml oral gel (10 sources) Vitamin D Start: 10-18-2024 End: 10-23-2024 Start: 12-29-2023 End: 12-29-2023 glucose oral gel 15 g Start: 10-07-2023 End: 10-17-2023 15 g, Oral, As needed, low b lood sugar, Starting on Gabi 10/07/23 at 1656, If blood glucose less than 50 mg/dL and patient ALERT and NOT NPO, give 2 tubes glucose gel. If blood glucose less than 70 mg/dL and patient ALERT and NOT NPO, give 1 tube glucose gel. Repeat blood glucose in 15 minutes. If blood glucose is less than 70 mg/dL, repeat treatment and recheck blood glucose in 15 minutes x2 and notify provider. Start: 08-17-2023 End: 08-19-2023 glucose oral gel 15 g Start: 06-28-2023 End: 07-01-2023 15 g, Oral, As needed, low b lood sugar, Starting on Wed06/28/23 at 0848 If blood glucose less than 50 mg/dL and patient ALERT and NOT NPO, give 2 tubes glucose gel. If blood glucose less than 70 mg/dL and patient ALERT and NOT NPO, give 1 tube glucose gel. Repeat blood glucose in 15 minutes. If blood glucose is less than 70 mg/dL, repeat treatment and recheck blood glucose in 15 minutes x2 and notify provider. cinnamon bark 500 mg oral capsule (19 sources) End: 01-11-2024 take 4 capsules by mouth once daily cinnamon 500 MG capsule Take 2,000 mg by mouth daily. 0 01/11/2024 Discontinued (Stop taking at discharge) clotrimazole 10 mg/ml topical cream (20 sources) Azole Antifungal Start: 08-18-2023 End: 01-11-2024 clotrimazole (Lotrimin) 1 % cream Apply topically 2 times daily. 0 08/19/2023 01/11/2024 Discontinued (Stop taking at discharge) colistimethate (COLYMYCIN) 100 mg in dextrose 5 % 100 mL IVPB (1 source) Start: 06-15-2019 End: 06-18-2019 colistimethate (COLYMYCIN) 100 mg in dextrose 5 % 100 mL IVPB 24 hr dilTIAZem hydrochloride 180 mg extended release oral capsule (20 sources) Calcium Channel Nano Start: 10-07-2023 End: 10-17-2023 take 180 mg by mouth once daily 180 mg, Oral, Daily, First dose on Wed10/07/23 at 1700, Do not crush, chew, or split. Start: 08-18-2023 End: 08-19-2023 take 180 mg by mouth once daily 180 mg, Oral, Daily, F irst dose on Wed08/18/23 at 0900, Do not crush, chew, or split. Start: 06-28-2023 End: 07-01-2023 take 180 mg by mouth once daily 180 mg, Oral, Daily, F irst dose on Wed06/28/23 at 0900 Do not crush, chew, or split. Start: 09-25-2020 End: 01-11-2024 take 1 capsule by mouth once daily dilTIAZem (CARDIZEM CD) 180 MG extended release capsule Take 1 capsule by mouth daily 30 capsule 3 11/26/2020 Active diphenhydrAMINE hydrochloride 25 mg oral tablet (2 sources) Histamine-1 Receptor Antagonist Start: 10-08-2023 End: 10-08-2023 take 25 mg by mouth once 25 mg, Oral, Once, On Wed10/08/23 at 0215, For 1 dose Start: 10-08-2023 End: 10-08-2023 take 25 mg by mouth once 25 mg, Oral, Once, On Wed at 0215, For 1 dose Drug or medicament (substance) (2 sources) Start: 10-07-2023 End: 10-09-2023 take 1500 mg intravenously every twelve hours dulaglutide (Trulicity) 3 MG/0.5ML solution pen-injector (2 sources) End: 05-07-2023 inject 3 mg by subcutaneous injection every week dulaglutide (Trulicity) 3 MG/0.5ML solution pen-injector Inject 3 mg under the skin 1 (one) time per week. 0 05/07/2023 Discontinued (Dose adjustment) inject 3 mg by subcu taneous injection every week dulaglutide (Trulicity) 3 MG/0.5ML solution pen-injector Inject 3 mg under the skin 1 (one) time per week. 0 Active dulaglutide (Trulicity) 4.5 MG/0.5ML solution pen-injector (19 sources) inject 4.5 mg by subcutaneous injection once dulaglutide (Trulicity) 4.5 MG/0.5ML solution pen-injector Inject 4.5 mg under the skin 1 (one) time per week. Every 0 Suspended inject 4.5 mg by sub cutaneous injection once dulaglutide (Trulicity) 4.5 MG/0.5ML solution pen-injector Inject 4.5 mg under the skin 1 (one) time per week. Every 0 Active inject 4.5 mg by sub cutaneous injection every week dulaglutide (Trulicity) 4.5 MG/0.5ML solution pen-injector Inject 4.5 mg under the skin 1 (one) time per week. 0 Suspended inject 4.5 mg by sub cutaneous injection every week dulaglutide (Trulicity) 4.5 MG/0.5ML solution pen-injector Inject 4.5 mg under the skin 1 (one) time per week. 0 Active 0.3 ml enoxaparin sodium 100 mg/ml prefilled syringe (12 sources) Low Molecular Weight Heparin Start: 10-18-2024 End: 10-19-2024 inject 1 dose by subcutaneous injection twice daily 30 mg, SubCUTAneous, Every 12 hours scheduled (2 times per day), First dose on Wed10/18/24 at 2115, Indication of Use: Prophylaxis-DVT/PE Start: 10-07-2023 End: 10-17-2023 inject 1 dose by subcutaneous injection twice daily 30 mg, SubCUTAneous, Every 12 hours scheduled (2 times per day), First dose on Wed10/07/23 at 2100, Indication of Use: Prophylaxis-DVT/PE Start: 08-17-2023 End: 08-19-2023 inject 1 dose by subcutaneous injection twice daily 30 mg, SubCUTAneous, Every 12 hours scheduled (2 times per day), First dose on Wed08/17/23 at 2250, Indication of Use: Prophylaxis-DVT/PE Start: 06-28-2023 End: 07-01-2023 inject 40 mg by subcutaneous injection every twenty-four hours 40 mg, SubCUTAneous, Every 24 hours scheduled (Daily), First dose on Wed06/28/23 at 0900 Indication of Use: Prophylaxis-DVT/PE Indications: Prophylaxis of Venous Thromboembolism Start: 11-23-2020 End: 11-26-2020 inject 40 mg by subcutaneous injection once daily 40 mg, Subcutaneous, DAILY, First dose (after last modification) on Wed11/27/20 at 0900 Start: 09-18-2020 inject 40 mg by subc utaneous injection once daily 40 mg, Subcutaneous, DAILY, First dose on Wed09/18/20 at 0900 Start: 06-14-2019 enoxaparin (LO VENOX) injection 40 mg 2 ml fentaNYL 0.05 mg/ml injection (2 sources) Opioid Agonist Start: 10-19-2024 End: 10-19-2024 IntraVENous, As needed, Starting on Wed10/19/24 at 1350, Intraprocedure FLUoxetine 20 mg oral capsule (20 sources) Serotonin Reuptake Inhibitor Start: 10-19-2024 End: 10-23-2024 take 40 mg by mouth once daily 40 mg, Oral, Daily, First dose on Wed10/19/24 at 0900 Start: 10-07-2023 End: 10-17-2023 take 40 mg by mouth once daily 40 mg, Oral, Daily, Fir st dose on Wed10/07/23 at 1700 Start: 08-18-2023 End: 08-19-2023 take 40 mg by mouth once daily 40 mg, Oral, Daily, Fir st dose on Wed08/18/23 at 0900 Start: 06-28-2023 End: 07-01-2023 take 40 mg by mouth once daily 40 mg, Oral, Daily, Fir st dose on Wed06/28/23 at 0900 Start: 11-23-2020 take 40 mg by mouth once daily 40 mg, Oral, DAILY, First dose on Wed11/23/20 at 0900 Start: 09-18-2020 take 40 mg by mouth once daily 40 mg, Oral, DAILY, First dose on Wed09/18/20 at 0900 Start: 06-15-2019 take 20 mg by mouth once daily 20 mg, Oral, DAILY, First dose on Wed06/15/19 at 1345 take 1 capsule by mo uth once daily FLUoxetine (PROzac) 40 MG capsule Take 40 mg by mouth daily. Active take 2 capsules by m outh once daily FLUoxetine (PROZAC) 20 MG capsule Take 40 mg by mouth daily 0 Active gabapentin 100 mg oral capsule (20 sources) Anti-epileptic Agent Start: 10-18-2024 End: 10-23-2024 take 100 mg by mouth twice daily 100 mg, Oral, 2 times daily, First dose on Wed10/18/24 at 2115 Start: 10-07-2023 End: 10-17-2023 take 100 mg by mouth twice daily 100 mg, Oral, 2 times daily, First dose on Wed10/07/23 at 2100 Start: 08-17-2023 End: 08-19-2023 take 100 mg by mouth twice daily 100 mg, Oral, 2 times daily, First dose on Wed08/17/23 at 2250 Start: 06-28-2023 End: 07-01-2023 take 100 mg by mouth twice daily 100 mg, Oral, 2 times daily, First dose on 8/21/23 at 0900 glucagon (rdna) 1 mg injecti on (13 sources) Antihypoglycemic Agent Start: 10-18-2024 End: 10-23-2024 Start: 12-29-2023 End: 12-29-2023 glucagon (human recombinant) injection 1 mg Start: 10-07-2023 End: 10-17-2023 1 mg, IntraMUSCular, PRN, lo w blood sugar, Blood glucose less than 70 mg/dL and patient NOT ALERT or NPO and does not have IV access., Starting on Gabi 10/07/23 at 1656, After administration, attempt intravenous access and start D5W at 100 mL/hr. Repeat blood glucose in 15 minutes x2 and notify provider. Start: 08-17-2023 End: 08-19-2023 glucagon (human recombinant) injection 1 mg Start: 06-28-2023 End: 07-01-2023 take 1 mL intravenously every hour 1 mg, IntraMUSCular , PRN, low blood sugar, Blood glucose less than 70 mg/dL and patient NOT ALERT or NPO and does not have IV access., Starting on 06/28/23 at 0848 After administration, attempt intravenous access and start D5W at 100 mL/hr. Repeat blood glucose in 15 minutes x2 and notify provider. Start: 11-23-2020 glucagon (rDNA ) injection 1 mg Start: 09-18-2020 take 1 mL intravenou s route every hour 1 mg, Intramuscular, PRN, Low blood sugar, Blood glucose less than 70 mg/dL and patient NOT ALERT or NPO and does not have IV access., Starting 09/18/20 at 0115 After administration, attempt intravenous access and start D5W at 100 mL/hr. Repeat blood glucose in 15 minutes x2 and notify provider. Start: 06-14-2019 glucagon (rDNA ) injection 1 mg 150 ml glucose 50 mg/ml inje ction (20 sources) Start: 10-18-2024 End: 10-23-2024 Start: 10-18-2024 End: 10-23-2024 Start: 12-29-2023 End: 12-29-2023 dextrose 50 % solution 12.5 g Start: 12-29-2023 End: 12-29-2023 dextrose 5 % infusion Start: 10-07-2023 End: 12-10-2023 12.5 g, IntraVENous, PRN, lo w blood sugar, Blood glucose less than 70 mg/dL and patient NOT ALERT or NPO., Starting on Gabi 10/07/23 at 1656, If patient does not respond within 5 minutes, repeat dose x1. Start D5W at 100 mL/hour until ordering provider can be reached. Repeat blood glucose in 15 minutes. If blood glucose is less than 70 mg/dL, repeat treatment and recheck blood glucose in 15 minutes x2. If using Glucostabilizer, dose as instructed per system. Start: 10-07-2023 End: 10-17-2023 100 mL/hr, IntraVENous, PRN, Blood sugar less than 70mg/dL, Starting on Gabi 10/07/23 at 1656, Start infusion following administration of dextrose 50% or glucagon. Start: 10-07-2023 End: 10-07-2023 50 mL, IntraVENous, Once, On Gabi 10/07/23 at 0615, For 1 dose Start: 08-17-2023 End: 08-17-2023 dextrose 50 % solution 50 mL Start: 08-17-2023 End: 08-19-2023 dextrose 50 % solution 12.5 g Start: 08-17-2023 End: 08-19-2023 dextrose 5 % infusion Start: 06-28-2023 End: 07-01-2023 12.5 g, IntraVENous, PRN, lo w blood sugar, Blood glucose less than 70 mg/dL and patient NOT ALERT or NPO., Starting on 06/28/23 at 0848 If patient does not respond within 5 minutes, repeat dose x1. Start D5W at 100 mL/hour until ordering provider can be reached. Repeat blood glucose in 15 minutes. If blood glucose is less than 70 mg/dL, repeat treatment and recheck blood glucose in 15 minutes x2. If using Glucostabilizer, dose as instructed per system. Start: 06-28-2023 End: 07-01-2023 100 mL/hr, IntraVENous, PRN, Blood sugar less than 70mg/dL, Starting on 06/28/23 at 0848 Start infusion following administration of dextrose 50% or glucagon. Start: 11-23-2020 dextrose 50 % IV solution Start: 11-23-2020 dextrose 5 % s olution Start: 11-23-2020 glucose (GLUTO SE) 40 % oral gel 15 g Start: 09-18-2020 15 g, Oral, NM N, Low blood sugar, Starting Wed09/18/20 at 0115 If blood glucose less than 50 mg/dL and patient ALERT and TOLERATING PO, give 2 tubes glucose gel. If blood glucose less than 70 mg/dL and patient ALERT and TOLERATING PO, give 1 tube glucose gel. Repeat blood glucose in 15 minutes. If blood glucose is less than 70 mg/dL, repeat treatment and recheck blood glucose in 15 minutes x2 and notify provider. Start: 09-18-2020 12.5 g, Intrav enous, PRN, Low blood sugar, Blood glucose less than 70 mg/dL and patient NOT ALERT or NPO., Starting Wed09/18/20 at 0115 If patient does not respond within 5 minutes, repeat dose x1. Start D5W at 100 mL/hour until ordering provider can be reached. Repeat blood glucose in 15 minutes. If blood glucose is less than 70 mg/dL, repeat treatment and recheck blood glucose in 15 minutes x2. If using Glucostabilizer, dose as instructed per system. Start: 09-18-2020 100 mL/hr, Int ravenous, at 100 mL/hr, PRN, Low blood sugar, Starting Wed09/18/20 at 0115 Start infusion following administration of dextrose 50% or glucagon. Start: 06-14-2019 glucose (GLUTO SE) 40 % oral gel 15 g Start: 06-14-2019 dextrose 50 % IV solution Start: 06-14-2019 dextrose 5 % s olution heparin sodium, porcine 100 unt/ml injectable solution (4 sources) Unfractionated Heparin, Anti-coagulant Start: 10-12-2023 End: 10-17-2023 take 250 [IU] intraluminal route every twelve hours 250 Units, IntraCATHeter, Every 12 hours, First dose on Wed10/12/23 at 1515, Each lumen. Do NOT administer to lumens with continuous fluids currently infusing. Line Care. Use 10 mL or larger syringe. Start: 10-12-2023 End: 10-17-2023 250 Units, IntraCATHeter, NM N, line care, after blood draws and after infusion, Starting on Wed10/12/23 at 1501, Do NOT administer to lumens with continuous fluids currently infusing. Line Care. Use 10 mL or larger syringe. hydrALAZINE hydrochloride 25 mg oral tablet (20 sources) Arteriolar Vasodilator Start: 10-19-2024 End: 10-23-2024 take 25 mg by mouth three times daily 25 mg, Oral, 3 times daily, First dose on Wed10/19/24 at 0900 Start: 08-19-2023 End: 08-19-2023 take 10 mg intravenously every four hours as needed for hypertension hydrALAZINE (Apresoline) injection 10 mg 1 ml HYDROmorphone hydrochloride 1 mg/ml cartridge (2 sources) Opioid Agonist Start: 10-19-2024 End: 10-23-2024 take 0.25 mg intravenously every four hours as needed for pain and pain 0.25 mg, IntraVENous, Every 4 hours PRN, severe pain (7-10), moderate pain (4-6), Starting on Wed10/19/24 at 1124, If oral and IV narcotics ordered, use oral first and only use IV if oral is ineffective or cannot take oral. Do Not give oral and IV within 1 hour of each other unless specifically ordered. insulin lispro 100 unt/ml injectable solution (20 sources) Insulin Analog Start: 10-14-2023 End: 10-15-2023 inject 30 [IU] by subcutaneous injection once 30 Units, SubCUTAneous, Once, On Wed10/15/23 at 0945, For 1 dose Start: 10-12-2023 End: 10-12-2023 inject 30 [IU] by subcutaneous injection three times daily at mealtime 30 Units, SubCUTAneous, 3 times daily with meals, First dose (after last modification) on Wed10/12/23 at 0815, Hold if not eating Start: 10-12-2023 End: 10-16-2023 80 Units, SubCUTAneous, 3 ti mes daily with meals, First dose (after last modification) on Wed10/14/23 at 1700, Hold if not eating; can give half the dose if eating around 50% of her meal Start: 10-12-2023 End: 10-12-2023 inject 18 [IU] by subcutaneous injection once 18 Units, SubCUTAneous, Once, On Wed10/12/23 at 0545, For 1 dose Start: 10-11-2023 End: 10-11-2023 inject 12 [IU] by subcutaneous injection once 12 Units, SubCUTAneous, Once, On Wed10/11/23 at 1515, For 1 dose Start: 10-11-2023 End: 10-13-2023 inject 40 [IU] by subcutaneous injection three times daily at mealtime 40 Units, SubCUTAneous, 3 times daily with meals, First dose (after last modification) on Wed10/12/23 at 1700, Hold if not eating Start: 10-11-2023 End: 10-16-2023 inject 60 [IU] by subcutaneous injection three times daily at mealtime 60 Units, SubCUTAneous, 3 times daily with meals, First dose (after last modification) on Wed10/13/23 at 1200, Hold if not eating Start: 10-11-2023 End: 10-12-2023 inject 25 [IU] by subcutaneous injection three times daily at mealtime 25 Units, SubCUTAneous, 3 times daily with meals, First dose on Wed10/11/23 at 0800, Skip if skipping a meal Start: 10-10-2023 End: 10-10-2023 inject 10 [IU] by subcutaneous injection once 10 Units, SubCUTAneous, Once, On 10/10/23 at 2230, For 1 dose Start: 08-18-2023 End: 08-19-2023 Insulin Lispro (Humalog) inj ection 0-12 Units Start: 08-18-2023 End: 08-18-2023 Insulin Lispro (Humalog) inj ection 15 Units Start: 06-30-2023 End: 06-30-2023 Insulin Lispro (Humalog) inj ection 30 Units Start: 06-30-2023 End: 06-30-2023 Insulin Lispro (Humalog) inj ection 30 Units Start: 06-28-2023 End: 06-30-2023 Insulin Lispro (Humalog) inj ection 0-18 Units Start: 06-28-2023 End: 06-30-2023 Insulin Lispro (Humalog) inj ection 45 Units Start: 11-23-2020 End: 11-23-2020 0-12 Units, Subcutaneous, 4 TIMES DAILY BEFORE MEALS & NIGHTLY, First dose on 11/23/20 at 0045 Medium Dose Corrective Algorithm Glucose: Dose: If <139 &nbs p; No Insulin 140-199 2 Units 200-249 4 Units 250-299 6 Units 300-349 8 Units 350-400 10 Units Above 400 & nbsp; 12 Units Start: 11-23-2020 End: 11-23-2020 0-6 Units, Subcutaneous, NIG HTLY, First dose on 11/23/20 at 0045 If continuous tube feedings/TPN/NPO, give correction dose based on result, no reduction in dose. If eating or bolus tube feeding: Medium Dose Corrective Algorithm Glucose: Dose: If <139 &nbs p; No Insulin 140-199 &n bsp; 1 Unit 200-249 &nbsp ; &nb sp; 2 Units 250-299 &nbs p; &n bsp; 3 Units 300-349 &nbs p; &n bsp; 4 Units 350-400 &nbs p; &n bsp; 5 Units Above 400 & nbsp; 6 Units Start: 09-20-2020 End: 09-21-2020 insulin lispro (HUMALOG) inj ection vial 0-12 Units Start: 09-18-2020 End: 09-18-2020 0-12 Units, Subcutaneous, 3 TIMES DAILY WITH MEALS, First dose on Wed09/18/20 at 0800 Medium Dose Corrective Algorithm Glucose: Dose: If <139 &nbs p; No Insulin 140-199 2 Units 200-249 4 Units 250-299 6 Units 300-349 8 Units 350-400 10 Units Above 400 & nbsp; 12 Units Start: 05-20-2019 End: 06-20-2019 insulin lispro (HUMALOG) 100 UNIT/ML injection vial Inject 0-18 Units into the skin 3 times daily (with meals) 1 vial 3 05/20/2019 06/20/2019 Discontinued (Stop Taking at Discharge) Start: 05-20-2019 End: 06-20-2019 insulin lispro (HUMALOG) 100 UNIT/ML injection vial Inject 0-9 Units into the skin nightly 1 vial 3 05/20/2019 06/20/2019 Discontinued (Stop Taking at Discharge) insulin isophane, human 100 unt/ml injectable suspension (20 sources) Start: 10-15-2023 End: 10-16-2023 inject 160 [IU] by subcutaneous injection once daily in the morning 160 Units, SubCUTAneous, Every morning, First dose (after last modification) on Wed10/15/23 at 0900 Start: 10-14-2023 End: 10-16-2023 inject 120 [IU] by subcutaneous injection once daily 120 Units, SubCUTAneous, Nightly, First dose (after last modification) on Gabi 10/14/23 at 2100 Start: 10-13-2023 End: 10-14-2023 inject 100 [IU] by subcutaneous injection once daily 100 Units, SubCUTAneous, Nightly, First dose (after last modification) on 10/13/23 at 2100 Start: 10-13-2023 End: 10-13-2023 inject 20 [IU] by subcutaneous injection once 20 Units, SubCUTAneous, Once, On Wed10/13/23 at 0900, For 1 dose Start: 10-12-2023 End: 10-13-2023 inject 70 [IU] by subcutaneous injection twice daily 70 Units, SubCUTAneous, 2 times daily, First dose (after last modification) on Tu10/12/23 at 0900 Start: 10-11-2023 End: 10-12-2023 inject 40 [IU] by subcutaneous injection twice daily 40 Units, SubCUTAneous, 2 times daily, First dose on Wed10/11/23 at 0900 Start: 10-10-2023 End: 10-10-2023 inject 35 [IU] by subcutaneous injection once 35 Units, SubCUTAneous, Once, On 10/10/23 at 1745, For 1 dose Start: 10-08-2023 End: 10-08-2023 inject 35 [IU] by subcutaneous injection once 35 Units, SubCUTAneous, Once, On Wed10/08/23 at 2130, For 1 dose Start: 06-30-2023 End: 07-01-2023 insulin NPH (Isophane) (Humu ASHLY N,NovoLIN N) injection 50 Units Start: 06-29-2023 End: 06-29-2023 insulin NPH (Isophane) (Humu ASHLY N,NovoLIN N) injection 40 Units Start: 06-29-2023 End: 06-29-2023 insulin NPH (Isophane) (Humu ASHLY N,NovoLIN N) injection 40 Units Start: 06-28-2023 End: 06-30-2023 insulin NPH (Isophane) (Humu ASHLY N,NovoLIN N) injection 85 Units Start: 11-27-2020 End: 11-28-2020 insulin NPH (HUMULIN N;NOVOL IN N) injection vial 30 Units Start: 06-16-2019 End: 06-16-2019 insulin NPH (HUMULIN N;NOVOL IN N) injection vial 75 Units Start: 06-15-2019 End: 06-15-2019 insulin NPH (HUMULIN N;NOVOL IN N) injection vial 55 Units Start: 06-14-2019 End: 06-14-2019 insulin NPH (HUMULIN N;NOVOL IN N) injection vial 50 Units Start: 05-21-2019 End: 06-20-2019 insulin NPH (HUMULIN N;NOVOL IN N) 100 UNIT/ML injection vial Inject 50 Units into the skin every morning 1 vial 3 05/21/2019 06/20/2019 Discontinued (Stop Taking at Discharge) Start: 05-20-2019 End: 06-20-2019 insulin NPH (HUMULIN N;NOVOL IN N) 100 UNIT/ML injection vial Inject 60 Units into the skin nightly 1 vial 3 05/20/2019 06/20/2019 Discontinued (Stop Taking at Discharge) iopamidol (Isovue-370) 76 % injection 100 mL (3 sources) Start: 10-18-2024 End: 10-18-2024 take 100 mL intravenously once as needed 100 mL, IntraVENous, IMG once PRN, contrast, Starting on Wed10/18/24 at 1805, For 1 dose Start: 08-08-2023 End: 08-08-2023 iopamidol (Isovue-370) 76 % injection 100 mL iopamidol (ISOVUE-370) 76 % injection 75 mL (2 sources) Start: 11-22-2020 End: 11-22-2020 iopamidol (ISOVUE-370) 76 % injection 75 mL Start: 09-17-2020 End: 09-17-2020 iopamidol (ISOVUE-370) 76 % injection 75 mL iopamidol (Isovue-370) 76 % injection 75 mL (6 sources) Start: 01-22-2024 End: 01-22-2024 iopamidol (Isovue-370) 76 % injection 75 mL Start: 08-17-2023 End: 08-17-2023 iopamidol (Isovue-370) 76 % injection 75 mL Start: 06-28-2023 End: 06-28-2023 iopamidol (Isovue-370) 76 % injection 75 mL ketoconazole 20 mg/ml medicated shampoo (5 sources) Azole Antifungal End: 11-25-2020 ketoconazole (NIZORAL) 2 % shampoo Apply topically daily as needed for Itching Apply topically daily as needed. 0 11/25/2020 Discontinued (Stop Taking at Discharge) 1 ml ketorolac tromethamine 15 mg/ml cartridge (3 sources) Nonsteroidal Anti-inflammatory Drug, Cyclooxygenase Inhibitor Start: 08-17-2023 End: 08-17-2023 ketorolac (Toradol) injection 15 mg Start: 08-08-2023 End: 08-08-2023 ketorolac (Toradol) injectio n 15 mg labetalol hydrochloride 5 mg/ml injectable solution (3 sources) beta-Adrenergic Nano Start: 10-10-2023 End: 10-17-2023 take 20 mg intravenously every six hours as needed for hypertension 20 mg, IntraVENous, Every 6 hours PRN, high blood pressure, Administer for SBP >170 and/or DBP >100, Starting on 10/10/23 at 2225 Start: 11-27-2020 labetalol (NOR MODYNE;TRANDATE) injection 10 mg lactobacillus acidophilus 16 mg oral capsule (9 sources) Start: 08-18-2023 End: 08-19-2023 take 1 capsule by mouth twice daily 1 capsule, Oral, 2 times daily, First dose on Wed08/18/23 at 0600, Substituted for available formulary product Start: 06-28-2023 End: 07-01-2023 take 1 capsule by mouth twice daily 1 capsule, Oral, 2 times daily, First dose on Wed06/28/23 at 0900 End: 11-25-2020 take 1 tablet by mouth once daily Acidophilus Lactobacillus CAPS Take 1 tablet by mouth daily 0 11/25/2020 Discontinued (Stop Taking at Discharge) Acidophilus Lact obacillus CAPS Take 1 tablet by mouth 0 Active lactobacillus acidophilus [id number] unt / pectin 100 mg oral tablet (20 sources) End: 01-11-2024 take 1 tablet by mouth in the morning Lactobacillus Acid-Pectin (Acidophilus/[place] Pectin) tablet Take 1 tablet by mouth in the morning and 1 tablet in the evening. 0 01/11/2024 Discontinued (Stop taking at discharge) 10 ml lidocaine hydrochloride 20 mg/ml injection (3 sources) Antiarrhythmic, Amide Local Anesthetic Start: 10-19-2024 End: 10-19-2024 Infiltration, As needed, Starting on Gabi 10/19/24 at 1350, Intraprocedure Start: 06-29-2023 End: 06-29-2023 lidocaine PF (Xylocaine) 2 % injection magnesium hydroxide 80 mg/ml oral suspension (20 sources) Start: 10-18-2024 End: 10-23-2024 take 8 [oz_av] by mouth once daily 30 mL, Oral, Nightly, First dose on Wed10/18/24 at 2115, Follow dose with 8 oz of water. magnesium hydrox swetha (Milk of Magnesia Concentrate) 2400 MG/10ML suspension suspension Every 24 hours. 0 Active Magnesium Hydrox swetha (MILK OF MAGNESIA CONCENTRATE PO) Take 30 mLs by mouth as needed (constipation) 0 Active 50 ml magnesium sulfate 40 mg/ml injection (4 sources) Start: 10-13-2023 End: 10-13-2023 2,000 mg, IntraVENous, at 25 mL/hr, Administer over 2 Hours, Once, On Wed10/13/23 at 1200, For 1 dose, Recommended infusion rate not to exceed 1,000 mg (milligrams) per hour. Start: 10-11-2023 End: 10-11-2023 2,000 mg, IntraVENous, at 25 mL/hr, Administer over 2 Hours, 2 times daily, First dose on Wed10/11/23 at 0900, For 2 doses, Recommended infusion rate not to exceed 1,000 mg (milligrams) per hour. megestrol acetate 20 mg oral tablet (20 sources) Progestin Start: 08-13-2021 End: 10-23-2024 take 1 tablet by mouth in the morning megestrol (Megace) 20 MG tablet Take 1 tablet by mouth in the morning and 1 tablet before bedtime. 08/13/2021 10/23/2024 Discontinued (Stop taking at discharge) Start: 11-23-2020 End: 11-26-2020 take 80 mg by mouth twice daily 80 mg, Oral, 2 TIMES D AILY, First dose on Wed11/23/20 at 0045 Hazardous Medication -- Refer to facility policy for handling and disposal. Start: 09-18-2020 take 80 mg by mouth twice rhoda y 80 mg, Oral, 2 TIMES DAILY, First dose on Wed09/18/20 at 0900 Hazardous Medication -- Refer to facility policy for handling and disposal. Start: 07-26-2019 End: 11-25-2020 take 2 tablets by mouth twice daily megestrol (MEGACE) 40 MG tablet Take 2 tablets by mouth 2 times daily 30 tablet 3 11/25/2020 Active melatonin 5 mg disintegrating oral tablet (20 sources) Start: 10-18-2024 End: 10-23-2024 take 10 mg by mouth once daily as needed for sleep 10 mg, Oral, Nightly PRN, sleep, Starting on Wed10/18/24 at 2112 Start: 10-07-2023 End: 10-17-2023 take 10 mg by mouth once daily 10 mg, Oral, Nightly, F irst dose on Wed10/07/23 at 2100 take 1 tablet by stacie once daily as needed melatonin 10 MG tablet Take 10 mg by mouth Nightly as needed (insomnia). Active menthol 0.0044 mg/mg / zinc oxide 0.206 mg/mg topical ointment (2 sources) Start: 10-20-2024 End: 10-23-2024 1 Application, Topical, 2 times daily, First dose on Wed10/20/24 at 1500, Apply topically after hygiene to posterior upper thighs, ischial, bilateral buttock. metFORMIN hydrochloride 500 mg oral tablet (1 source) Biguanide Start: 05-20-2019 End: 06-20-2019 take 1 tablet by mouth twice daily at mealtime metFORMIN (GLUCOPHAGE) 500 MG tablet Take 1 tablet by mouth 2 times daily (with meals) 60 tablet 3 05/20/2019 06/20/2019 Discontinued (Stop Taking at Discharge) 100 ml metroNIDAZOLE 5 mg/ml injection (2 sources) Nitroimidazole Antimicrobial Start: 10-18-2024 End: 10-19-2024 500 mg, IntraVENous, at 100 mL/hr, Administer over 60 Minutes, Once, On Wed10/18/24 at 1920, For 1 dose, Suspected Indication (Select all that apply): Intra-Abdominal Infection miconazole nitrate 0.02 mg/mg topical powder (20 sources) Azole Antifungal Start: 10-20-2024 End: 10-23-2024 apply 1 dose topically twice daily Topical, 2 times daily, First dose on Wed10/20/24 at 1500, Apply topically to all skin folds after hygiene use ph balanced skin wipe and pat dry. Start: 01-17-2019 End: 01-11-2024 miconazole (Micotin) 2 % pow cary Apply topically 2 times daily. 0 11/25/2020 01/11/2024 Discontinued (Stop taking at discharge) 2 ml midazolam 1 mg/ml injection (2 sources) Benzodiazepine Start: 10-19-2024 End: 10-19-2024 IntraVENous, As needed, Starting on Gabi 10/19/24 at 1350, Intraprocedure 1 ml morphine sulfate 4 mg/ml cartridge (6 sources) Opioid Agonist Start: 10-18-2024 End: 10-18-2024 take 1 dose by mouth every hour 4 mg, IntraVENous, Once, On Wed10/18/24 at 1645, For 1 dose, If oral and IV narcotics ordered, use oral first and only use IV if oral is ineffective or cannot take oral. Do Not give oral and IV within 1 hour of each other unless specifically ordered. Start: 08-08-2023 End: 08-08-2023 morphine injection 8 mg Start: 09-21-2020 morphine (PF) injection 4 mg Start: 09-18-2020 End: 09-21-2020 morphine (PF) injection 2 mg Start: 06-17-2019 morphine sulfa te (PF) injection 2 mg 1 ml naloxone hydrochloride 0.4 mg/ml injection (2 sources) Opioid Antagonist Start: 10-19-2024 End: 10-23-2024 0.4 mg, IntraVENous, Every 5 min PRN, opioid reversal, respiratory depression, Starting on Gabi 10/19/24 at 1124, +++ For RR nitroglycerin 0.4 mg sublingual tablet (5 sources) Nitrate Vasodilator Start: 06-28-2023 End: 07-01-2023 0.4 mg, SubLINGual, Every 5 min PRN, chest pain, Starting on Wed06/28/23 at 0847 Give every 5 minutes as needed for chest pain to a maximum of 3 doses. Notify MD and obtain EKG if no relief after 3 doses or chest pain recurs. HOLD and notify MD if SBP less than 90 mmHg. Do not give if nitroglycerin infusion running concurrently. Do not give within 24 hours of sildenafil citrate (Viagra) or vardenafil (Levitra) use, or within 48 hours of tadalafil (Cialis) use. Start: 06-28-2023 End: 06-28-2023 nitroglycerin (Nitrostat) SL tablet 0.4 mg Start: 11-24-2020 nitroGLYCERIN (NITROSTAT) SL tablet 0.4 mg Normal saline (3 sources) End: 11-25-2020 SALINE NASAL SPRAY NA by Curt al route as needed 0 11/25/2020 Discontinued (Stop Taking at Discharge) SALINE NASAL SPR AY NA by Nasal route as needed 0 Active ondansetron ODT (Zofran-ODT) disintegrating tablet 4 mg (4 sources) Start: 10-18-2024 End: 10-23-2024 take 1 tablet by mouth every eight hours as needed for nausea and vomiting ondansetron ODT (Zofran-ODT) disintegrating tablet 4 mg Start: 08-17-2023 End: 08-19-2023 take 1 tablet by mouth every eight hours as needed for nausea and vomiting ondansetron ODT (Zofran-ODT) disintegrating tablet 4 mg pantoprazole (ProtoNix) 40 mg in sodium chloride (PF) 0.9 % 10 mL injection (2 sources) Start: 10-19-2024 End: 10-23-2024 40 mg, IntraVENous, Administer over 2 Minutes, 2 times daily, First dose on Gabi 10/19/24 at 0600, Reconstitute with 10 ml NS. Vial expires 2 hrs after reconstitution. petrolatum 0.41 mg/mg topical ointment (5 sources) Start: 01-17-2019 End: 11-25-2020 mineral oil-hydrophilic petrolatum (AQUAPHOR) ointment Apply topically as needed. 1 Tube 0 01/17/2019 11/25/2020 Discontinued (Stop Taking at Discharge) piperacillin 3000 mg / tazobactam 375 mg injection (4 sources) Penicillin-cla ss Antibacterial, beta Lactamase Inhibitor Start: 10-07-2023 End: 10-10-2023 take 3375 mg intravenously every eight hours Start: 06-15-2019 End: 06-16-2019 piperacillin-tazobactam (ZOS YN) 3.375 g in dextrose 50 mL IVPB extended infusion (premix) Start: 06-14-2019 End: 06-14-2019 piperacillin-tazobactam (ZOS YN) 4.5 g in dextrose 100 mL IVPB (premix) piperacillin-tazobactam (Zosyn) 3,375 mg in sodium chloride 0.9 % 50 mL IVPB Mini-Bag Plus (2 sources) Start: 10-19-2024 End: 10-23-2024 take 3375 mg intravenously every eight hours 3,375 mg, IntraVENous, at 12.5 mL/hr, Administer over 4 Hours, Every 8 hours, First dose on Gabi 10/19/24 at 0800, Mini-Bag Plus bag, Suspected Indication (Select all that apply): Intra-Abdominal Infection polyethylene glycol 3350 [id number] mg powder for oral solution (20 sources) Osmotic Laxative Start: 10-07-2023 End: 10-17-2023 17 g, Oral, Daily, First dose on Gabi 10/07/23 at 1900 Start: 08-17-2023 End: 08-19-2023 17 g, Oral, Daily, First dos e on Wed08/18/23 at 0900 Start: 06-28-2023 End: 07-01-2023 17 g, Oral, Daily, First dos e on 06/28/23 at 0900 Start: 09-18-2020 End: 12-29-2020 take 17 g by mouth once daily polyethylene glycol (GLY COLAX) 17 g packet Take 17 g by mouth daily 527 g 1 11/29/2020 12/29/2020 Active microencapsulated potassium chloride 10 meq extended release oral tablet (20 sources) Start: 10-21-2024 End: 10-22-2024 40 mEq, Oral, Once, On 10/22/24 at 0800, For 1 dose, Best given with food and plenty of water to minimize gastric irritation. Do not crush or chew. Start: 08-17-2023 End: 08-19-2023 20 mEq, Oral, Every 24 hours , First dose on Tu08/17/23 at 2250, Best given with food and a glass of water to minimize gastric irritation. Do not crush or chew. Start: 06-28-2023 End: 07-01-2023 take 1 [oz_av] by mouth every twenty-four hours 20 mEq, Oral, Every 24 hours, First dose on Wed06/28/23 at 0900 Best given with food and a glass of water to minimize gastric irritation. Dissolve each packet in 4 ounces of water = 5 mEq per 1 oz fluid. Start: 06-15-2019 End: 06-18-2019 30 mEq, Oral, DAILY, First d ose on Gabi 06/15/19 at 1345 Do not crush or break. Start: 05-21-2019 End: 09-17-2020 take 2 tablets by mouth once daily at breakfast, then take 1 tablet by mouth potassium chloride (KLOR-CON M) 15 MEQ extended release tablet Take 2 tablets by mouth daily (with breakfast) 60 tablet 3 05/21/2019 09/17/2020 Discontinued End: 10-17-2023 End: 09-17-2020 take 3 capsules by mouth once daily, then take 1 capsule by mouth potassium chloride (MICRO-K) 10 MEQ extended release capsule Take 30 mEq by mouth daily 0 09/17/2020 Discontinued prochlorperazine 5 mg/ml injectable solution (6 sources) Phenothiazine Start: 10-10-2023 End: 10-17-2023 take 5 mg intravenously every six hours as needed for nausea and vomiting 5 mg, IntraVENous, Every 6 hours PRN, nausea, vomiting, Starting on Wed10/10/23 at 1729, 2nd-line if Zofran ineffective. Start: 10-08-2023 End: 10-08-2023 5 mg, IntraVENous, Once, On Wed10/08/23 at 2200, For 1 dose Start: 06-29-2023 End: 07-01-2023 take 10 mg intravenously every six hours as needed for nausea and vomiting prochlorperazine (Compazine) injection 10 mg 20 ml propofol 10 mg/ml injection (1 source) General Anesthetic Start: 06-29-2023 End: 06-29-2023 Propofol (Diprivan) injection 5 ml sodium chloride 9 mg/ml injection (20 sources) Start: 10-18-2024 End: 10-23-2024 10 mL, IntraVENous, Every 12 hours scheduled (2 times per day), First dose on Wed10/18/24 at 2115 Start: 10-18-2024 End: 10-23-2024 Start: 10-18-2024 End: 10-23-2024 Start: 10-18-2024 End: 10-18-2024 500 mL, IntraVENous, at 500 mL/hr, Administer over 1 Hours, Once, On 10/18/24 at 1645, For 1 dose Start: 01-22-2024 End: 01-22-2024 sodium chloride 0.9 % bolus 1,000 mL Start: 12-28-2023 End: 12-29-2023 sodium chloride 0.9 % bolus 1,000 mL Start: 12-09-2023 End: 12-09-2023 sodium chloride 0.9 % bolus 1,000 mL Start: 10-12-2023 End: 10-17-2023 take 10 mL intraluminal route every twelve hours 10 mL, IntraCATHeter, Every 12 hours, First dose on Tu10/12/23 at 1515, Administer to each lumen, regardless of whether or not fluids are infusing. Line Care. Use 10 mL or larger syringe. Start: 10-12-2023 End: 10-17-2023 10 mL, IntraCATHeter, PRN, l ine care, before blood draws, before and after infusion or medication administration, Starting on Wed10/12/23 at 1501, Use 10 mL or larger syringe. Start: 10-10-2023 End: 10-10-2023 take 75 mL intravenously every hour 75 mL/hr, IntraVEN ous, Continuous, Starting on 10/10/23 at 0015, For 13 hours Start: 10-09-2023 End: 10-09-2023 500 mL, IntraVENous, at 500 mL/hr, Administer over 1 Hours, Once, On 10/09/23 at 2300, For 1 dose Start: 10-07-2023 End: 10-07-2023 1,000 mL, IntraVENous, at 1, 000 mL/hr, Administer over 1 Hours, Once, On Gabi 10/07/23 at 0550, For 1 dose Start: 08-17-2023 End: 08-17-2023 sodium chloride 0.9 % bolus 500 mL Start: 08-08-2023 End: 08-08-2023 sodium chloride 0.9 % bolus 1,000 mL Start: 06-28-2023 End: 07-01-2023 sodium chloride 0.9 % infusi on Start: 11-23-2020 Intravenous, a t 125 mL/hr, CONTINUOUS, Starting 11/23/20 at 0045 Start: 11-22-2020 End: 11-22-2020 0.9 % sodium chloride bolus Start: 09-18-2020 10 mL, Intrave nous, EVERY 12 HOURS SCHEDULED (2 times per day), First dose on Wed09/18/20 at 0900 Start: 09-18-2020 take 10 mL intraveno us route once as needed 10 mL, Intravenous, PRN, Line Care, After every IV line use, Starting Wed09/18/20 at 0115 Start: 09-17-2020 End: 09-18-2020 0.9 % sodium chloride bolus Start: 09-17-2020 End: 09-18-2020 Intravenous, at 75 mL/hr, CONTINUOUS, Starting 09/18/20 at 0145 Start: 06-18-2019 End: 06-20-2019 0.9 % sodium chloride infusi on Start: 06-14-2019 sodium chlorid e flush 0.9 % injection 10 mL Start: 06-14-2019 End: 06-14-2019 0.9 % sodium chloride bolus sodium polystyrene sulfonate 250 mg/ml oral suspension (1 source) Start: 06-19-2019 End: 06-19-2019 sodium polystyrene (KAYEXALA TE) 15 GM/60ML suspension 15 g technetium Tc-99m sulfur colloid (Nycomed-[place]) radio-isotope solution 1.1 millicurie (2 sources) Start: 12-23-2023 End: 12-23-2023 technetium Tc-99m sulfur col loid (Nycomed-SC) radio-isotope solution 1.1 millicurie vancomycin (VANCOCIN) 2,000 mg in dextrose 5 % 500 mL IVPB (2 sources) Start: 06-15-2019 End: 06-18-2019 vancomycin (VANCOCIN) 2,000 mg in dextrose 5 % 500 mL IVPB Start: 06-14-2019 End: 06-14-2019 vancomycin (VANCOCIN) 2,000 mg in dextrose 5 % 500 mL IVPB (10 sources) Start: 10-14-2023 End: 10-17-2023 take 4 mg by mouth every eight hours as needed for nausea and vomiting [Order 1 Start] Name: ondansetron ODT (Zofran-ODT) disintegrating tablet 4 mg Signed Summary: 4 mg, Oral, Every 8 hours PRN, nausea, vomiting, Starting on Gabi 10/14/23 at 1555, Patient should allow tablet to dissolve on tongue. Do not remove from blister pack until just before administering. [Order 1 End] [Order 2 Start] Name: ondansetron (Zofran) injection 4 mg Signed Summary: 4 mg, IntraVENous, Every 6 hours PRN, nausea, vomiting, Starting on Wed10/14/23 at 1555, Give IV if patient is unable to take orally. [Order 2 End] Start: 10-12-2023 End: 10-17-2023 1,000 mg, IntraVENous, at 10 0 mL/hr, Administer over 30 Minutes, Every 24 hours, First dose on Wed10/12/23 at 1530, Mini-Bag Plus bag, Suspected Indication (Select all that apply): Bloodstream Infection Start: 10-11-2023 End: 10-12-2023 take 3000 mg intravenously every six hours 3,000 mg, IntraVENous, at 200 mL/hr, Administer over 30 Minutes, Every 6 hours, First dose on Wed10/11/23 at 0000, ADD-[place] bag, Suspected Indication (Select all that apply): Bloodstream Infection Start: 10-07-2023 End: 10-07-2023 Start: 10-07-2023 End: 10-07-2023 (2 sources) Start: 10-08-2023 End: 10-08-2023 take 75 mL intravenously once as needed 75 mL, IntraVENous, IMG once PRN, contrast, Starting on Wed10/08/23 at 0934, For 1 dose Problems Active Problems Problem Classification Problem Date Documented Date Episodic/Chronic Cancer of uterus (20 sources) Endometrial carcinoma; 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: [Malignant neoplasm of endometrium] Onset: 11-25-19 21 11-25-2020 Chronic Chronic ulcer of skin (1 source) Non-pressure chronic ulcer of other part of right foot with unspecified severity; 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: [N-PRS ULCR OTH PRT RT FT UNS SEVRTY] Onset: 05-09-20 Chronic Complications of surgical procedures or medical care (1 source) Infection of amputation stump; 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: [Amputation stump infection (HCC)] Episodic Diabetes mellitus with complications (20 sources) Type 2 diabetes mellitus with hyperglycemia; 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: [Type 2 diabetes mellitus with foot ulcer] Onset: 02-11-2009-03-2018 Chronic Diabetes mellitus with complications (4 sources) Type 2 diabetes mellitus with diabetic neuropathy, unspecified; 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: [Type 2 diabetes mellitus with diabetic peripheral angiopathy without gangrene] Onset: 02-11-20 Diabetes mellitus without complication (16 sources) Type 2 diabetes mellitus; 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: [Type 2 diabetes mellitus without complications] Onset: 12-08-1909-01-2018 Chronic Disorders of lipid metabolism (20 sources) Hyperlipidemia, unspecified; 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: [Mixed hyperlipidemia] Onset: 05-09-20 Chronic Disorders of teeth and jaw (1 source) Dental caries; 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: [Dental caries, unspecified] Episodic Essential hypertension (20 sources) Essential (primary) hypertension; 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: [Hypertensive disorder] Onset: 05-09-2009-27-2020 Chronic Fluid and electrolyte disorders (5 sources) Dehydration; 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: [Hyperkalemia] Onset: 03-25-2012-09-2023 Episodic Genitourinary symptoms and ill-defined conditions (9 sources) Endometrium thickened; 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: [Microalbuminuria] Onset: 12-01-1911-26-2020 Episodic Hypertension with complications and secondary hypertension (2 sources) Hypertension secondary to endocrine disorders; 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: [Hypertension secondary to endocrine disorders] Onset: 04-06-20 Chronic Infective arthritis and osteomyelitis (except that caused by tuberculosis or sexually transmitted di (20 sources) Other osteomyelitis, ankle and foot; 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: [Other chronic osteomyelitis, unspecified ankle and foot] Onset: 03-25-2009-01-2018 Chronic Menopausal disorders (20 sources) Postmenopausal bleeding; 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: [Postmenopausal bleeding] Onset: 05-16-20 19 05-16-2019 Chronic Mood disorders (1 source) Major depressive disorder, single episode, unspecified; 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: [LIZZY DEPRESS D/O SINGLE EPIS UNS] Onset: 05-09-20 Other aftercare (5 sources) intermediate (current) use of insulin; 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: [Other snf (current) drug therapy] Onset: 05-09-20 Episodic Other aftercare (2 sources) Long-term current use of antibiotic; 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: [intermediate (current) use of antibiotics] 10-12-2023 Episodic Other bone disease and musculoskeletal deformities (2 sources) Acquired absence of right leg above knee; 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: [Acquired absence of right leg above knee (HCC)] Onset: 08-22-20 Chronic Other bone disease and musculoskeletal deformities (1 source) Acquired absence of other right toe(s); 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: [ACQUIRED ABSENCE OTHER RIGHT TOES] Onset: 05-09-20 Episodic Other diseases of veins and lymphatics (2 sources) Lymphedema, not elsewhere classified; 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: [LYMPHEDEMA NOT ELSEWHERE CLASSIFIED] Onset: 05-09-20 Chronic Other diseases of veins and lymphatics (20 sources) Chronic acquired lymphedema; 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: [Lymphedema, not elsewhere classified] Onset: 11-25-1909-12-2018 Chronic Other diseases of veins and lymphatics (1 source) Lymphedema of left lower limb; 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: [Lymphedema, not elsewhere classified] 02-01-2025 Chronic Other disorders of stomach and duodenum (1 source) Gastroparesis syndrome; 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: [Gastroparesis] Episodic Other endocrine disorders (20 sources) Hyperandrogenization syndrome; 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: [Other ovarian dysfunction] Onset: 09-03-20 18 09-03-2018 Chronic Other endocrine disorders (20 sources) Hypoglycemia; 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: [Hypoglycemia, unspecified] Onset: 10-07-20 23 08-17-2023 Chronic Other female genital disorders (20 sources) Endometrial hyperplasia; 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: [Endometrial hyperplasia, unspecified] Onset: 11-25-19 21 11-25-2020 Chronic Other female genital disorders (20 sources) Complex atypical endometrial hyperplasia; 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]] Onset: 11-26-19 21 11-26-2020 Chronic Other gastrointestinal disorders (2 sources) H/O: gallbladder disease; 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: [Personal history of other diseases of the digestive system] 11-12-2024 Episodic Other gastrointestinal disorders (1 source) Occult blood in stools; 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: [Other fecal abnormalities] 12-21-2024 Episodic Other hematologic conditions (1 source) History of anemia; 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: [Personal history of diseases of the blood and blood-forming organs and certain disorders involving the immune mechanism] 12-21-2024 Episodic Other infections; including parasitic (1 source) Personal history of other infectious and parasitic diseases; 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: [Personal history of other infectious and parasitic diseases] Onset: 01-03-20 Episodic Other injuries and conditions due to external causes (2 sources) Hypothermia; 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: [Hypothermia, initial encounter] 10-07-2023 Episodic Other lower respiratory disease (1 source) Nodule of lung; 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: [Solitary pulmonary nodule] 02-11-2024 Episodic Other lower respiratory disease (1 source) Solitary nodule of lung; 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: [Solitary pulmonary nodule] 02-11-2024 Episodic Other nutritional; endocrine; and metabolic disorders (2 sources) Morbid (severe) obesity due to excess calories; 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: [Obesity, unspecified] Onset: 03-25-20 Chronic Other nutritional; endocrine; and metabolic disorders (20 sources) Severe obesity; 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: [Morbid (severe) obesity due to excess calories] Onset: 01-14-2009-01-2018 Chronic Other nutritional; endocrine; and metabolic disorders (20 sources) Morbid obesity; 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: [Morbid (severe) obesity due to excess calories] Onset: 06-20-2006-20-2019 Chronic Other nutritional; endocrine; and metabolic disorders (2 sources) Body mass index 40+ - severely obese; 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: [Morbid (severe) obesity due to excess calories] 02-11-2024 Chronic Other nutritional; endocrine; and metabolic disorders (2 sources) Body mass index (BMI) 45.0-49.9, adult; 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: [Body mass index (BMI) 45.0-49.9, adult (HCC)] Onset: 04-06-20 Chronic Other screening for suspected conditions (not mental disorders or infectious disease) (20 sources) Endometrium thickened; 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: [Abnormal findings on diagnostic imaging of other specified body structures] Onset: 11-26-1908-22-2022 Chronic Peripheral and visceral atherosclerosis (20 sources) Peripheral vascular disease, unspecified; 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: [Peripheral vascular disease, unspecified] Onset: 02-02-2002-01-2025 Chronic Rehabilitation care; fitting of prostheses; and adjustment of devices (1 source) Encounter for fitting and adjustment of other specified devices; 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: [ENC FITTINGANDADJUST OTH SPEC DEVICES] Onset: 02-11-20 Chronic Residual codes; unclassified (1 source) Obstructive sleep apnea syndrome; 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: [Obstructive sleep apnea (adult) (pediatric)] 02-11-2024 Chronic Residual codes; unclassified (1 source) Sleep apnea, unspecified; 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: [Sleep apnea, unspecified] Onset: 07-02-20 Chronic Residual codes; unclassified (2 sources) Altered mental status; 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: [Altered mental status, unspecified] 10-07-2023 Episodic Schizophrenia and other psychotic disorders (1 source) Schizophrenia, unspecified; 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: [SCHIZOPHRENIA UNSPECIFIED] Onset: 05-09-20 18 Chronic Skin and subcutaneous tissue infections (6 sources) Cellulitis of left lower limb; 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: [Left leg cellulitis] Onset: 01-12-20 19 01-11-2019 Unclassified (1 source) Body mass index (BMI) 60.0-69.9, adult; 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: [BODY MASS INDEX BMI 60.0-69.9 ADULT] Onset: 05-09-20 18 Chronic Unclassified (1 source) Dual role transvestism; 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 Unclassified (1 source) 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; 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: [NON-PRS C U OTH P R FT OTH SPEC SEV] Onset: 03-25-20 Unclassified (1 source) Transsexualism; 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: [TRANSSEXUALISM] Onset: 02-11-20 18 Unclassified (1 source) Wound Check Onset: 06-28-20 18 Unclassified (8 sources) History of amputation of right leg through femur; 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: [S/P AKA (above knee amputation) unilateral, right] 06-20-2019 Unclassified (1 source) Obesity, class 3 (HCC); 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: [Obesity, class 3 (HCC)] Onset: 04-06-20 Urinary tract infections (4 sources) Bacterial urinary infection; 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: [Pyelonephritis] 08-08-2023 Episodic Past or Other Problems Problem Classification Problem Date Documented Da te Episodic/Chronic Abdominal pain (20 sources) Generalized abdominal pain; 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: [Abdominal pain] Onset: 3 Episodic Acute and unspecified renal failure (20 sources) Acute kidney failure, unspecified; 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: [Acute injury of kidney] Onset: 8 12-31-2023 Episodic Bacterial infection (20 sources) Resistance to multiple antimycobacterial drugs; 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: [Pseudomonas (aeruginosa) (mallei) (pseudomallei) as the cause of diseases classified elsewhere] Onset: 8 10-16-2023 Episodic Biliary tract disease (20 sources) Acute cholecystitis; 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: [Acute cholecystitis] Onset: 4 10-18-2024 Episodic Deficiency and other anemia (2 sources) Anemia, unspecified; 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: [ANEMIA UNSPECIFIED] Onset: 8 Episodic Diabetes mellitus without complication (20 sources) Hyperglycemia; 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: [Hyperglycemia, unspecified] Onset: 9 05-16-2019 Episodic Esophageal disorders (20 sources) Esophagitis; 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: [Esophagitis] Onset: 0 09-22-2020 Episodic Intestinal obstruction without hernia (20 sources) Intestinal obstruction co-occurrent and due to decreased peristalsis; 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: [Ileus, unspecified] Onset: 0 09-27-2020 Episodic Nausea and vomiting (20 sources) Nausea and vomiting; 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: [Nausea] Onset: 0 09-22-2020 Episodic Nonspecific chest pain (20 sources) Chest pain; 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: [Chest pain, unspecified] Onset: 3 06-28-2023 Episodic Other bone disease and musculoskeletal deformities (20 sources) History of amputation of right leg through femur; 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: [Acquired absence of right leg above knee] Onset: 1 Resolved: 5 08-22-2022 Chronic Other gastrointestinal disorders (2 sources) Other fecal abnormalities; 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: [Other fecal abnormalities] Onset: 5 Episodic Other gastrointestinal disorders (2 sources) Personal history of other diseases of the digestive system; 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: [Personal history of other diseases of the digestive system] Onset: 5 Episodic Other hematologic conditions (2 sources) Personal history of diseases of the blood and blood-forming organs and certain disorders involving the immune mechanism; 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: [Personal history of diseases of the blood and blood-forming organs and certain disorders involving the immune mechanism] Onset: 5 Episodic Residual codes; unclassified (20 sources) Hypothermia not associated with low environmental temperature; 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: [Hypothermia, not associated with low environmental temperature] Onset: 3 10-16-2023 Episodic Septicemia (except in labor) (20 sources) Sepsis without acute organ dysfunction; 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: [Sepsis, unspecified organism] Onset: 3 10-16-2023 Episodic Skin and subcutaneous tissue infections (20 sources) Cellulitis of right lower limb; 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: [Cutaneous abscess of right foot] Onset: 8 01-17-2019 Episodic Unclassified (3 sources) PAD (peripheral artery disease) ([facility]) 02-01-2025 Unclassified (1 source) Obesity, class 3 ([facility]); 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: [Obesity, class 3 ([facility])] Onset: 5 Results Test Name Value Interpretation Reference Range Facility 36on 05-07-2025 36 [facility] and informed. [facility] 36 Continue current dos es Recommend future BGLs be sent in 4 week intervals. Or sooner if experiencing hypoglycemia or persistent elevations. Normal [facility] 36 Patient's BGL Normal [facility] 36on 05-01-2025 36 [facility]. Normal [facility] 36 Normal [facility] 36on 04-30-2025 36 Patient's BGL Normal [place] [address]on 04-24-2025 36 [facility] and informed! Normal [facility] 36on 04-23-2025 36 Patient's BGL Normal [facility] 36on 04-20-2025 36 Called and relayed t he TE below to the pt's nurse. [facility] 36on 04-19-2025 36 Continue current dos es. Future blood glucose log's requested to have 2 weeks of data. [facility] 36on 04-17-2025 36 BGL downloaded in co travis for your review. Thanks [facility] 36on 04-06-2025 36 Faxed BG recommendat ion to [facility] at fax #: [phone]. [facility] AMB POC HEMOGLOBIN A1Con HbA1c (Bld) [Mass fraction] 6.8 % Abnormal - 5.7 % [facility] HbA1c (Bld) [Mass fraction]o n 04-06-2025 Interpretation and review of laboratory results Abnormal [facility] Progress Noteon 04-06-2025 Progress Note Normal [facility] 36on 04-05-2025 36 Good Afternoon, I reviewed blood sugars for Maria Luisa, and they are mostly stable. There are no hypoglycemic events and blood sugars are not in the 300s on this log which is fantastic. No changes recommended at this time. Thanks! Normal [facility] 36 Patient's BGL Normal [facility] 3603-27-2025 36 Normal [facility] 36on 03-16-2025 36 Faxed recommendation s to [facility] fax #: [phone]. Normal [facility] 03-15-2025 36 Reviewed BLG. Blood sugars are variable ranging between 117-359. No insulin dose changes. Blood sugars are improving. Normal [facility] 3603-14-2025 36 We received recent B GL's regarding the pt, please advise. Normal [facility] 36on 02-27-2025 36 Patient's BGL Normal [facility] Anion gap in Serum or Plasma Ordered By: Jared Guzman on 02-26-2025 Anion gap [Moles/Vol] 12 mmol/L 5-[address] [facility] BUN/creatinine ratioOrdered By: Jared Guzman on 02-26-2025 Urea nitrogen/Creatinine [Mass ratio] 22.4 mg/mg High 10-20 [facility] Carbon dioxide, total [Moles /volume] in Central venous bloodOrdered By: Jared Guzman on 02-26-2025 CO2 [Moles/Vol] 25.7 mmol/L 21.0-32.0 [facility] Chloride assayOrdered By: Marcel Piper on 02-26-2025 Chloride [Moles/Vol] 101 mmol/L 98-108 [facility] GFR/1.73 sq M.predicted belinda g non-blacks MDRD (S/P/Bld) [Vol rate/Area]Ordered By: Jared Guzman on 02-26-2025 Estimated GFR (MDRD) Non-Af Amer 101 >60 [facility] Comment on above: mL/min/1.73m2 CKD-EP I Creatinine Equation (2020) Glomerular filtration rate ( GFR) estimation/1.73 sq m using serum, plasma, or whole bOrdered By: Jared Guzman on 02-26-2025 GFR/1.73 sq M.predicted among non-blacks MDRD (S/P/Bld) [Vol rate/Area] 101 mL/min/{1.73_m2} >60 [facility] Comment on above: mL/min/1.73m2 CKD-EP I Creatinine Equation (2020) Potassium (Unsp spec) [Mass/ Vol]Ordered By: Jared Guzman on 02-26-2025 Potassium [Moles/Vol] 4.0 mmol/L 3.3-5.[address] [facility] Potassium measurement (mass/ volume)Ordered By: Jared Guzman on 02-26-2025 Potassium (Unsp spec) [Mass/Vol] 4.0 mmol/L 3.3-5.1 [facility] Renal Profileon 02-26-2025 Albumin [Mass/Vol] 3.7 g/dL Normal 3.5-5.0 [facility] Comment on above: Order Comment: 103.1 Performed By: #### L 100.0500, [id number] #### [facility] [address] [place], [address] BUN/CRE 22.4 RATIO High 10-20 [facility] Comment on above: Order Comment: 103.1 Performed By: #### L 100.0500, [id number] #### [facility] [address] [place], [address] Calcium [Mass/Vol] 9.1 mg/dL Normal 7.6-11.0 [facility] Comment on above: Order Comment: 103.1 Performed By: #### L 100.0500, [id number] #### [facility] [address] [place], [address] Chloride [Moles/Vol] 101 mmol/L Normal 98-108 [facility] Comment on above: Order Comment: 103.1 Performed By: #### L 100.0500, [id number] #### [facility] [address] [place], [address] CO2 [Moles/Vol] 25.7 mmol/L Normal 21.0-32.0 [facility] Comment on above: Order Comment: 103.1 Performed By: #### L 100.0500, [id number] #### [facility] [address] [place], [address] Creatinine [Mass/Vol] 0.68 mg/dL Low 0.70-1.[address] [facility] Comment on above: Order Comment: 103.1 Performed By: #### L 100.0500, [id number] #### [facility] [address] [place], [address] GAP 12 Normal 5-15 [facility] Comment on above: Order Comment: 103.1 Performed By: #### L 100.0500, [id number] #### [facility] [address] [place], [address] GFR/1.73 sq M.predicted among non-blacks MDRD (S/P/Bld) [Vol rate/Area] 101 mL/min/{1.73_m2} Normal >60 [facility] Comment on above: Order Comment: 103.1 Result Comment: mL/m in/1.73m2 CKD-EPI Creatinine Equation (2020) Performed By: #### L 100.0500, [id number] #### [facility] [address] [place], [address] Glucose [Mass/Vol] 211 mg/dL High 70-99 [facility] Comment on above: Order Comment: 103.1 Performed By: #### L 100.0500, [id number] #### [facility] [address] [place], [address] Phosphate [Mass/Vol] 4.2 mg/dL Normal 2.7-4.5 [facility] Comment on above: Order Comment: 103.1 Performed By: #### L 100.0500, [id number] #### [facility] [address] [place], [address] Potassium [Moles/Vol] 4.0 mmol/L Normal 3.3-5.[address] [facility] Comment on above: Order Comment: 103.1 Performed By: #### L 100.0500, [id number] #### [facility] [address] [place], [address] Sodium [Moles/Vol] 139 mmol/L Normal 133-145 [facility] Comment on above: Order Comment: 103.1 Performed By: #### L 100.0500, [id number] #### [facility] [address] [place], [address] Urea nitrogen [Mass/Vol] 15 mg/dL Normal 4-19 [facility] Comment on above: Order Comment: 103.1 Performed By: #### L 100.0500, [id number] #### [facility] [address] [place], [address] Serum creatinine measurement (mass/volume)Ordered By: Jared Guzman on 02-26-2025 Creatinine [Mass/Vol] 0.68 mg/dL Low 0.70-1.[address] [facility] Serum glucose measurement (m ass/volume)Ordered By: Jared Guzman on 02-26-2025 Glucose [Mass/Vol] 211 mg/dL High 70-99 [facility] Serum or plasma albumin mauricio urement (mass/volume)Ordered By: Jared Guzman on 02-26-2025 Albumin [Mass/Vol] 3.7 g/dL 3.5-5.0 [facility] Serum or plasma calcium mauricio urement (mass/volume)Ordered By: Jared Guzman on 02-26-2025 Calcium [Mass/Vol] 9.1 mg/dL 7.6-11.0 [facility] Serum or plasma urea nitroge n measurement (mass/volume)Ordered By: Jared Guzman on 02-26-2025 Urea nitrogen [Mass/Vol] 15 mg/dL 4-19 [facility] Serum phosphorus measurement Ordered By: Jared Guzman on 02-26-2025 Phosphorus Level 4.2 mg/dL 2.7-4.5 [facility] Sodium levelOrdered By: Main Guzman on 02-26-2025 Sodium [Moles/Vol] 139 mmol/L 133-145 [facility] 36on 02-16-2025 36 Faxed letter to [facility] at fax #: [phone]. [facility] 36on 02-15-2025 36 Normal [facility] 36 Patient's BGL [facility] 02-13-2025 36 Called [facility] to offer cancel the C visit per provider. Visit canceled. [facility] 02-12-2025 36 Nurse from [facility] called to schedule Annual follow up. Follow up scheduled for 03/02/2025. Patient is non weight bearing and uses a [facility]. Further question is whether they bring with [facility] or ambulance cot. Please advise. [facility] 02-09-2025 36 Faxed new orders to [facility] at fax #: [phone]. Normal [facility] No Panel InformationOrdered By: Corin Man on 02-09-2025 Left arm BP 146 [facility] 0.95 [facility]: Left toe pressure 138 [facility]: Right arm BP 145 [facility]: No Panel Informationon 02-09 Left side findings: Resting RODNEY is not obtainable secondary to non-compressible vessels.PVR waveforms appear normal at rest. The TBI is normal. Right above knee amputation. RODNEY Patient is s/p right leg above knee amputation. Left side findings: Non-compressible resting RODNEY. Normal resting TBI. Left PVR waveforms: Consistent with MILD disease - 2nd digit. Normal - lower thigh, calf, ankle, metatarsal region, 1st digit, 3rd digit, 4th digit and 5th digit. Three cuff method used due to body habitus. 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 Pulsed volume recording (PVR) and photo plethysmography was performed. The exam was performed with the patient in the supine position. Overall the study quality was adequate. Study was technically difficult due to: body habitus. CV CPACS 36on 02-08-2025 36 Normal [facility] [address] [facility] Rad[facility] called stating that CT chest wo IV contrast order will before its completion. Requested new order to be placed. Please advise. Normal [facility] 36on 02-07-2025 36 Patient's BGL Normal [facility] Anion gap in Serum or Plasma Ordered By: Jared Guzman on 02-07-2025 Anion gap [Moles/Vol] 10 mmol/L 5-[address] [facility] BUN/creatinine ratioOrdered By: Jared Guzman on 02-07-2025 Urea nitrogen/Creatinine [Mass ratio] 21.4 mg/mg High 10-20 [facility] Basic Metabolic Profile (BMP )on 02-07-2025 BUN/CRE 21.4 RATIO High 10-20 [facility] Comment on above: Order Comment: 103-1 Performed By: #### L 100.0500, L500.2500 #### [facility] [address] [place], [address] Calcium [Mass/Vol] 9.0 mg/dL Normal 7.6-11.0 [facility] Comment on above: Order Comment: 103-1 Performed By: #### L 100.0500, L500.2500 #### [facility] [address] [place], [address] Chloride [Moles/Vol] 102 mmol/L Normal 98-108 [facility] Comment on above: Order Comment: 103-1 Performed By: #### L 100.0500, L500.2500 #### [facility] [address] [place], [address] CO2 [Moles/Vol] 27.2 mmol/L Normal 21.0-32.0 [facility] Comment on above: Order Comment: 103-1 Performed By: #### L 100.0500, L500.2500 #### [facility] [address] [place], [address] Creatinine [Mass/Vol] 0.56 mg/dL Low 0.70-1.[address] [facility] Comment on above: Order Comment: 103-1 Performed By: #### L 100.0500, L500.2500 #### [facility] [address] [place], [address] GAP 10 Normal 5-15 [facility] Comment on above: Order Comment: 103-1 Performed By: #### L 100.0500, L500.2500 #### [facility] [address] [place], [address] GFR/1.73 sq M.predicted among non-blacks MDRD (S/P/Bld) [Vol rate/Area] 106 mL/min/{1.73_m2} Normal >60 [facility] Comment on above: Order Comment: 103- Result Comment: mL/m in/1.73m2 CKD-EPI Creatinine Equation (2020) Performed By: #### L 100.0500, L500.2500 #### [facility] [address] [place], [address] Glucose [Mass/Vol] 113 mg/dL High 70-99 [facility] Comment on above: Order Comment: 103-1 Performed By: #### L 100.0500, L500.2500 #### [facility] [address] [place], [address] Potassium [Moles/Vol] 4.2 mmol/L Normal 3.3-5.[address] [facility] Comment on above: Order Comment: 103-1 Performed By: #### L 100.0500, L500.2500 #### [facility] [address] [place], [address] Sodium [Moles/Vol] 140 mmol/L Normal 133-145 [facility] Comment on above: Order Comment: 103-1 Performed By: #### L 100.0500, L500.2500 #### [facility] [address] [place], [address] Urea nitrogen [Mass/Vol] 12 mg/dL Normal 4-19 [facility] Comment on above: Order Comment: 103-1 Performed By: #### L 100.0500, L500.2500 #### [facility] [address] [place], [address] CBC-Complete Blood Cnt No Di ffon 02-07-2025 Erythrocyte distribution width (RBC) [Ratio] 14.5 % Normal 11.6-14.6 [facility] Comment on above: Order Comment: 103.1 Performed By: #### L 100.0500, L500.4050 #### [facility] [address] [place], [address] Hematocrit (Bld) [Volume fraction] 34.7 % Low 37-47 [facility] Comment on above: Order Comment: 103.1 Performed By: #### L 100.0500, L500.4050 #### [facility] [address] [place], [address] Hemoglobin (Bld) [Mass/Vol] 11.1 g/dL Low 12.0-15.0 [facility] Comment on above: Order Comment: 103.1 Performed By: #### L 100.0500, L500.4050 #### [facility] [address] [place], [address] MCH (RBC) [Entitic mass] 27.1 pg Normal 27.0-32.0 [facility] Comment on above: Order Comment: 103.1 Performed By: #### L 100.0500, L500.4050 #### [facility] [address] [place], [address] MCHC (RBC) [Mass/Vol] 32.0 g/dL Normal 32-[address] [facility] Comment on above: Order Comment: 103.1 Performed By: #### L 100.0500, L500.4050 #### [facility] [address] [place], [address] MCV (RBC) [Entitic vol] 84.6 fL Normal 81-99 [facility] Comment on above: Order Comment: 103.1 Performed By: #### L 100.0500, L500.4050 #### [facility] [address] [place], [address] Platelet mean volume (Bld) [Entitic vol] 10.3 fL Normal 6.2-12.0 [facility] Comment on above: Order Comment: 103.1 Performed By: #### L 100.0500, L500.4050 #### [facility] [address] [place], [address] Platelets (Bld) [#/Vol] 353 10*3/uL Normal 150-450 [facility] Comment on above: Order Comment: 103.1 Performed By: #### L 100.0500, L500.4050 #### [facility] [address] [place], [address] RBC (Bld) [#/Vol] 4.10 10*6/uL Low 4.2-5.4 [facility] Comment on above: Order Comment: 103.1 Performed By: #### L 100.0500, L500.4050 #### [facility] [address] [place], [address] RDW SD 44.6 fl High 35.1-43.9 [facility] Comment on above: Order Comment: 103.1 Performed By: #### L 100.0500, L500.4050 #### [facility] [address] [place], [place], [address] WBC (Bld) [#/Vol] 8.1 10*3/uL Normal 4.4-11.0 [facility] Comment on above: Order Comment: 103.1 Performed By: #### L 100.0500, L500.4050 #### [facility] [address] [place], [address] Carbon dioxide, total [Moles /volume] in Central venous bloodOrdered By: Jared Guzman on 02-07-2025 CO2 [Moles/Vol] 27.2 mmol/L 21.0-32.0 [facility] Chloride assayOrdered By: Marcel Piper on 02-07-2025 Chloride [Moles/Vol] 102 mmol/L 98-108 [facility] Erythrocyte distribution wid th (RBC) [Ratio]Ordered By: Jared Guzman on 02-07-2025 Erythrocyte distribution width (RBC) [Entitic vol] 44.6 fL High 35.1-43.9 [facility] Erythrocyte distribution wid th ratioOrdered By: Jared Guzman on 02-07-2025 Erythrocyte distribution width (RBC) [Ratio] 14.5 % 11.6-14.6 [facility] Erythrocyte distribution wid th standard deviationOrdered By: Jared Guzman on 02-07-2025 Erythrocyte distribution width (RBC) [Ratio] 44.6 fl High 35.1-43.9 [facility] GFR/1.73 sq M.predicted belinda g non-blacks MDRD (S/P/Bld) [Vol rate/Area]Ordered By: Jared Guzman on 02-07-2025 Estimated GFR (MDRD) Non-Af Amer 106 >60 [facility] Comment on above: mL/min/1.73m2 CKD-EP I Creatinine Equation (2020) Glomerular filtration rate ( GFR) estimation/1.73 sq m using serum, plasma, or whole bOrdered By: Jared Guzman on 02-07-2025 GFR/1.73 sq M.predicted among non-blacks MDRD (S/P/Bld) [Vol rate/Area] 106 mL/min/{1.73_m2} >60 [facility] Comment on above: mL/min/1.73m2 CKD-EP I Creatinine Equation (2020) Hematocrit Auto (Bld) [Volum e fraction]Ordered By: Jared Guzman on 02-07-2025 Hematocrit (Bld) [Volume fraction] 34.7 % Low 37-47 [facility] Hemoglobin measurementOrdere d By: Jared Guzman on 02-07-2025 Hemoglobin (Bld) [Mass/Vol] 11.1 g/dL Low 12.0-15.0 [facility] MCV (mean corpuscular volume ) determinationOrdered By: Jared Guzman on 02-07-2025 MCV (RBC) [Entitic vol] 84.6 fL 81-99 [facility] Mean corpuscular hemoglobin (MCH) determinationOrdered By: Jared Guzman on 02-07-2025 MCH (RBC) [Entitic mass] 27.1 pg 27.0-32.0 [facility] Mean corpuscular hemoglobin concentration (MCHC) determinationOrdered By: Jared Guzman on 02-07-2025 MCHC (RBC) [Mass/Vol] 32.0 g/dL 32-[address] [facility] Mean platelet volume determi nationOrdered By: Jared Guzman on 02-07-2025 Platelet mean volume (Bld) [Entitic vol] 10.3 fL 6.2-12.0 [facility] Platelet countOrdered By: Marcel Piper on 02-07-2025 Platelets (Bld) [#/Vol] 353 10*3/uL 150-450 [facility] Potassium (Unsp spec) [Mass/ Vol]Ordered By: Jared Guzman on 02-07-2025 Potassium [Moles/Vol] 4.2 mmol/L 3.3-5.[address] [facility] Potassium measurement (mass/ volume)Ordered By: Jared Guzman on 02-07-2025 Potassium (Unsp spec) [Mass/Vol] 4.2 mmol/L 3.3-5.1 [facility] RBC Auto (Bld) [#/Vol]Ordere d By: Jared Guzman on 02-07-2025 RBC (Bld) [#/Vol] 4.10 10*6/uL Low 4.2-5.4 [facility] Serum creatinine measurement (mass/volume)Ordered By: Jared Guzman on 02-07-2025 Creatinine [Mass/Vol] 0.56 mg/dL Low 0.70-1.[address] [facility] Serum glucose measurement (m ass/volume)Ordered By: Jared Guzman on 02-07-2025 Glucose [Mass/Vol] 113 mg/dL High 70-99 [facility] Serum or plasma calcium mauricio urement (mass/volume)Ordered By: Jared Guzman on 02-07-2025 Calcium [Mass/Vol] 9.0 mg/dL 7.6-11.0 [facility] Serum or plasma urea nitroge n measurement (mass/volume)Ordered By: Jared Guzman on 02-07-2025 Urea nitrogen [Mass/Vol] 12 mg/dL 4-19 [facility] Sodium levelOrdered By: Main Guzman on 02-07-2025 Sodium [Moles/Vol] 140 mmol/L 133-145 [facility] White blood cell (WBC) count Ordered By: Jared Guzman on 02-07-2025 WBC (Bld) [#/Vol] 8.1 10*3/uL 4.4-11.0 [facility] Progress Noteon 02-01-2025 Progress Note [facility] 01-31-2025 36 Called SNF s/w Suma released message as written, she stated that she understood. [facility] 01-30-2025 36 [facility] 01-29-2025 36 Patient's BGL [facility] 01-19-2025 36 Faxed orders to [facility] at fax #: [phone]. [facility] 01-17-2025 36 [facility] 01-15-2025 36 Patients BGL [facility] 01-11-2025 36 Called SNF s/w Sanjana released message as written, she stated that she understood and had no questions. [facility] 01-10-2025 36 [facility] 01-08-2025 36 Patient's BGL Normal [facility] 36on 01-02-2025 36 Labs Noted [facility] 36on 01-01-2025 36 Requested BGLs and a recent CMP was received , please advise. [facility] 37on 01-01-2025 37 Please send Ophthalmology Note once completed this year. Please note if any insulin doses are held on blood log. [facility] Progress Noteon 01-01-2025 Progress Note [facility] 36on 12-29-2024 36 Called SNF s/w Ninfa released message as written, no insulin has been held. [facility] 36on 12-28-2024 36 Called the nursing facility to schedule an appointment and spoke with Nabil, who stated that the pt nurse is not in today and that she will have her call our office when she is in. TY [facility] 36 ----- Message from JEREMY Bloom CNP sent at 12/21/2024 4:00 PM EST ----- Please schedule patient for EGD and colonoscopy-[facility] endoscopy. Please call nursing facility to schedule appointment. Thank you. [facility] 36on 12-27-2024 36 [facility] Albumin to globulin ratioOrd ered By: Jared Guzman on 12-27-2024 Albumin/Globulin [Mass ratio] 0.8 {ratio} Low 0.9-2.4 [facility] Bilirubin, totalOrdered By: Jared Guzman on 12-27-2024 Bilirubin [Mass/Vol] 0.40 mg/dL 0.20-1.00 [facility] Comment on above: For patients on eltr ombopag therapy, use of [place] TBIL is not recommended. Blood urea nitrogen (BUN)/cr eatinine ratioOrdered By: Jared Guzman on 12-27-2024 Urea nitrogen/Creatinine [Mass ratio] 14.4 mg/mg - [facility] CBC-Complete Blood Cnt No Di ffon 12-27-2024 Erythrocyte distribution width (RBC) [Ratio] 14.6 % Normal 11.6-14.6 [facility] Comment on above: Order Comment: 103-1 Performed By: #### L 100.0500, L500.2500 #### [facility] [address] [place], [address] Hematocrit (Bld) [Volume fraction] 34.5 % Low 37-47 [facility] Comment on above: Order Comment: 103-1 Performed By: #### L 100.0500, L500.2500 #### [facility] [address] [place], [address] Hemoglobin (Bld) [Mass/Vol] 10.9 g/dL Low 12.0-15.0 [facility] Comment on above: Order Comment: 103-1 Performed By: #### L 100.0500, L500.2500 #### [facility] [address] [place], [address] MCH (RBC) [Entitic mass] 27.2 pg Normal 27.0-32.0 [facility] Comment on above: Order Comment: 103-1 Performed By: #### L 100.0500, L500.2500 #### [facility] [address] [place], [address] MCHC (RBC) [Mass/Vol] 31.6 g/dL Low 32-[address] [facility] Comment on above: Order Comment: 103-1 Performed By: #### L 100.0500, L500.2500 #### [facility] [address] [place], [address] MCV (RBC) [Entitic vol] 86.0 fL Normal 81-99 [facility] Comment on above: Order Comment: 103-1 Performed By: #### L 100.0500, L500.2500 #### [facility] [address] [place], [address] Platelet mean volume (Bld) [Entitic vol] 10.3 fL Normal 6.2-12.0 [facility] Comment on above: Order Comment: 103-1 Performed By: #### L 100.0500, L500.2500 #### [facility] [address] [place], [address] Platelets (Bld) [#/Vol] 350 10*3/uL Normal 150-450 [facility] Comment on above: Order Comment: 103-1 Performed By: #### L 100.0500, L500.2500 #### [facility] [address] [place], [address] RBC (Bld) [#/Vol] 4.01 10*6/uL Low 4.2-5.4 [facility] Comment on above: Order Comment: 103-1 Performed By: #### L 100.0500, L500.2500 #### [facility] [address] [place], [address] RDW SD 45.5 fl High 35.1-43.9 [facility] Comment on above: Order Comment: 103-1 Performed By: #### L 100.0500, L500.2500 #### [facility] [address] [place], [address] WBC (Bld) [#/Vol] 6.9 10*3/uL Normal 4.4-11.0 [facility] Comment on above: Order Comment: 103-1 Performed By: #### L 100.0500, L500.2500 #### [facility] [address] [place], [address] Carbon dioxide measurementOr dered By: Jared Guzman on 12-27-2024 CO2 [Moles/Vol] 29.0 mmol/L 21.0-32.0 [facility] Chloride measurementOrdered By: Jared Guzman on 12-27-2024 Chloride [Moles/Vol] 104 mmol/L 98-107 [facility] Comprehensive Metabolic Prof ilon 12-27-2024 Albumin [Mass/Vol] 2.8 g/dL Low 3.2-5.0 [facility] Comment on above: Order Comment: 103-1 Performed By: #### L 100.0500, L500.2500 #### [facility] [address] [place], [address] Albumin/Globulin [Mass ratio] 0.8 {ratio} Low 0.9-2.4 [facility] Comment on above: Order Comment: 103-1 Performed By: #### L 100.0500, L500.2500 #### [facility] [address] [place], [address] ALK P 152 U/L High 45-117 [facility] Comment on above: Order Comment: 103-1 Performed By: #### L 100.0500, L500.2500 #### [facility] [address] [place], [address] ALT [Catalytic activity/Vol] 32 U/L Normal 13-56 [facility] Comment on above: Order Comment: 103-1 Performed By: #### L 100.0500, L500.2500 #### [facility] [address] [place], [address] AST [Catalytic activity/Vol] 19 U/L Normal 15-37 [facility] Comment on above: Order Comment: 103-1 Performed By: #### L 100.0500, L500.2500 #### [facility] [address] [place], [address] Bilirubin [Mass/Vol] 0.40 mg/dL Normal 0.20-1.00 [facility] Comment on above: Order Comment: 103-1 Result Comment: For patients on eltrombopag therapy, use of [place] TBIL is not recommended. Performed By: #### L 100.0500, L500.2500 #### [facility] [address] [place], [address] BUN/CRE 14.4 RATIO Normal 10-20 [facility] Comment on above: Order Comment: 103-1 Performed By: #### L 100.0500, L500.2500 #### [facility] [address] [place], [address] CA,Total 9.4 mg/dL Normal 8.5-10.1 [facility] Comment on above: Order Comment: 103-1 Performed By: #### L 100.0500, L500.2500 #### [facility] [address] [place], [address] Chloride [Moles/Vol] 104 mmol/L Normal 98-107 [facility] Comment on above: Order Comment: 103-1 Performed By: #### L 100.0500, L500.2500 #### [facility] [address] [place], [address] CO2 [Moles/Vol] 29.0 mmol/L Normal 21.0-32.0 [facility] Comment on above: Order Comment: 103-1 Performed By: #### L 100.0500, L500.2500 #### [facility] [address] [place], [address] Creatinine [Mass/Vol] 0.56 mg/dL Normal 0.55-1.[address] [facility] Comment on above: Order Comment: 103-1 Result Comment: The validity of the calculated GFR GFRAA in patients over 70 years has not been determined. Clinical correlation is essential. Performed By: #### L 100.0500, L500.2500 #### [facility] [address] [place], [address] EST GFR - AA 144 mL/min Normal >60 [facility] Comment on above: Order Comment: 103-1 Result Comment: Afri can [place] GFR Calc Performed By: #### L 100.0500, L500.2500 #### [facility] [address] [place], [address] GAP 6 Normal 5-15 [facility] Comment on above: Order Comment: 103-1 Performed By: #### L 100.0500, L500.2500 #### [facility] [address] [place], [address] GFR/1.73 sq M.predicted among non-blacks MDRD (S/P/Bld) [Vol rate/Area] 119 mL/min/{1.73_m2} Normal >60 [facility] Comment on above: Order Comment: 103-1 Result Comment: Non- GFR Calc Performed By: #### L 100.0500, L500.2500 #### [facility] [address] [place], [address] Globulin (S) [Mass/Vol] 3.4 g/dL Normal 2.2-4.2 [facility] Comment on above: Order Comment: 103- Performed By: #### L 100.0500, L500.2500 #### [facility] [address] [place], [address] Glucose [Mass/Vol] 149 mg/dL High 74-106 [facility] Comment on above: Order Comment: 103- Result Comment: Fast ing Glucose result greater than or equal to 126 mg/dL suggests DIABETES MELLITUS per A.D.A. criteria. Performed By: #### L 100.0500, L500.2500 #### [facility] [address] [place], [address] Potassium [Moles/Vol] 3.9 mmol/L Normal 3.5-5.[address] [facility] Comment on above: Order Comment: 103-1 Performed By: #### L 100.0500, L500.2500 #### [facility] [address] [place], [address] Sodium [Moles/Vol] 139 mmol/L Normal 136-145 [facility] Comment on above: Order Comment: 103-1 Performed By: #### L 100.0500, L500.2500 #### [facility] [address] [place], [address] T PROT 6.2 g/dL Low 6.4-8.2 [facility] Comment on above: Order Comment: 103-1 Performed By: #### L 100.0500, L500.2500 #### [facility] [address] [place], [address] Urea nitrogen [Mass/Vol] 8 mg/dL Normal 7-18 [facility] Comment on above: Order Comment: 103-1 Performed By: #### L 100.0500, L500.2500 #### [facility] [address] [place], [address] Erythrocyte distribution wid th ratioOrdered By: Jared Guzman on 12-27-2024 Erythrocyte distribution width (RBC) [Ratio] 14.6 % 11.6-14.6 [facility] Erythrocyte distribution wid th standard deviationOrdered By: Jared Guzman on 12-27-2024 Erythrocyte distribution width (RBC) [Entitic vol] 45.5 fL High 35.1-43.9 [facility] Erythrocyte distribution width (RBC) [Ratio] 45.5 fl High 35.1-43.9 [facility] Estimated glomerular filtrat ion rate (GFR) AmericanOrdered By: Jared Guzman on 12-27-2024 Estimated GFR (MDRD) Amer 144 mL/min >60 [facility] Comment on above: GFR Calc Glomerular filtration rate ( GFR) estimationOrdered By: Jared Guzman on 12-27-2024 Estimated GFR (MDRD) Non-Af Amer 119 mL/min >60 [facility] Comment on above: Non- GFR Calc GFR/1.73 sq M.predicted among non-blacks MDRD (S/P/Bld) [Vol rate/Area] 119 mL/min/{1.73_m2} >60 [facility] Comment on above: Non- GFR Calc Glucose measurementOrdered B y: Jared Guzman on 12-27-2024 Glucose [Mass/Vol] 149 mg/dL High 74-106 [facility] Comment on above: Fasting Glucose resu lt greater than or equal to 126 mg/dL suggests DIABETES MELLITUS per A.D.A. criteria. Hematocrit Auto (Bld) [Volum e fraction]Ordered By: Jared Guzman on 12-27-2024 Hematocrit (Bld) [Volume fraction] 34.5 % Low 37-47 [facility] Hemoglobin measurementOrdere d By: Jared Guzman on 12-27-2024 Hemoglobin (Bld) [Mass/Vol] 10.9 g/dL Low 12.0-15.0 [facility] High density lipoprotein (HD L) measurementOrdered By: Jared Guzman on 12-27-2024 Cholesterol in HDL [Mass/Vol] 43 mg/dL >40 [facility] Comment on above: The drugs N-Acetylcy steine and Metamizole may falsely depress this assay. Reference Range HDL <40 mg/dL Low HDL Cholesterol HDL >or= 60 mg/dL High HDL Cholesterol Laboratory - Chemistry and C hemistry - challengeOrdered By: Jared Guzman on 12-27-2024 AST [Catalytic activity/Vol] 19 U/L 15-37 [facility] Lipid Profileon 12-27-2024 Cholesterol [Mass/Vol] 178 mg/dL Normal 200 [facility] Comment on above: Order Comment: 103-1 Result Comment: <200 mg/dL Desirable 200-240 mg/dL Borderline >240 mg/dL High Risk Performed By: #### L 100.0500, L500.2500 #### [facility] [address] [place], [address] Cholesterol in HDL [Mass/Vol] 43 mg/dL Normal [facility] Comment on above: Order Comment: 103-1 Result Comment: The drugs N-Acetylcysteine and Metamizole may falsely depress this assay. Reference Range HDL <40 mg/dL Low HDL Cholesterol HDL >or= 60 mg/dL High HDL Cholesterol Performed By: #### L 100.0500, L500.2500 #### [facility] [address] [place], [address] Cholesterol in LDL [Mass/Vol] 99 mg/dL Normal 0-130 [facility] Comment on above: Order Comment: 103-1 Performed By: #### L 100.0500, L500.2500 #### [facility] [address] [place], [address] Cholesterol in VLDL [Mass/Vol] 36 mg/dL Normal 5-40 [facility] Comment on above: Order Comment: 103-1 Performed By: #### L 100.0500, L500.2500 #### [facility] [address] [place], [address] Triglyceride [Mass/Vol] 181 mg/dL Normal [facility] Comment on above: Order Comment: 103- Result Comment: The drugs N-Acetylcysteine and Metamizole may falsely depress this assay. Serum Triglycerides Reference Interval Normal <150 mg/dL Borderline high 150 - 199 mg/dL High 200 - 499 mg/dL Very High > or = 500 mg/dL Performed By: #### L 100.0500, L500.2500 #### [facility] [address], [address] Low density lipoprotein (LDL ) cholesterol measurementOrdered By: Jared Guzman on 12-27-2024 Cholesterol in LDL [Mass/Vol] 99 mg/dL 0-130 [facility] MCV (mean corpuscular volume ) determinationOrdered By: Jared Guzman on 12-27-2024 MCV (RBC) [Entitic vol] 86.0 fL 81-99 [facility] Mean corpuscular hemoglobin (MCH) determinationOrdered By: Jared Guzman on 12-27-2024 MCH (RBC) [Entitic mass] 27.2 pg 27.0-32.0 [facility] Mean corpuscular hemoglobin concentration (MCHC) determinationOrdered By: Jared Guzman on 12-27-2024 MCHC (RBC) [Mass/Vol] 31.6 g/dL Low 32-[address] [facility] Mean platelet volume determi nationOrdered By: Jared Guzman on 12-27-2024 Platelet mean volume (Bld) [Entitic vol] 10.3 fL 6.2-12.0 [facility] Platelet countOrdered By: Marcel Piper on 12-27-2024 Platelets (Bld) [#/Vol] 350 10*3/uL 150-450 [facility] Potassium measurementOrdered By: Jared Guzman on 12-27-2024 Potassium [Moles/Vol] 3.9 mmol/L 3.5-5.[address] [facility] RBC Auto (Bld) [#/Vol]Ordere d By: Jared Guzman on 12-27-2024 RBC (Bld) [#/Vol] 4.01 10*6/uL Low 4.2-5.4 [facility] Serum anion gap measurementO rdered By: Jared Guzman on 12-27-2024 Anion gap [Moles/Vol] 6 mmol/L 5-[address] [facility] Serum globulin measurementOr dered By: Jared Guzman on 12-27-2024 Globulin (S) [Mass/Vol] 3.4 g/dL 2.2-4.2 [facility] Serum or plasma alanine jones otransferase (ALT) measurementOrdered By: Jared Guzman on 12-27-2024 ALT [Catalytic activity/Vol] 32 U/L 13-56 [facility] Serum or plasma albumin mauricio urement (mass/volume)Ordered By: Jared Guzman on 12-27-2024 Albumin [Mass/Vol] 2.8 g/dL Low 3.2-5.0 [facility] Serum or plasma alkaline abbey sphatase measurementOrdered By: Jared Guzman on 12-27-2024 ALP [Catalytic activity/Vol] 152 U/L High 45-117 [facility] Serum or plasma calcium mauricio urement (mass/volume)Ordered By: Jared Guzman on 12-27-2024 Calcium [Mass/Vol] 9.4 mg/dL 8.5-10.1 [facility] Serum or plasma cholesterol measurement (mass/volume)Ordered By: Jared Guzman on 12-27-2024 Cholesterol [Mass/Vol] 178 mg/dL <200 [facility] Comment on above: <200 mg/dL Desirable 200-240 mg/dL Borderline >240 mg/dL High Risk Serum or plasma creatinine m easurement (mass/volume)Ordered By: Jared Guzman on 12-27-2024 Creatinine [Mass/Vol] 0.56 mg/dL 0.55-1.[address] [facility] Comment on above: The validity of the calculated GFR & GFRAA in patients over 70 years has not been determined. Clinical correlation is essential. Serum or plasma urea nitroge n measurement (mass/volume)Ordered By: Jared Guzman on 12-27-2024 Urea nitrogen [Mass/Vol] 8 mg/dL 7-18 [facility] Sodium levelOrdered By: Main Guzman on 12-27-2024 Sodium [Moles/Vol] 139 mmol/L 136-145 [facility] Total proteinOrdered By: Mike Guzman on 12-27-2024 Protein [Mass/Vol] 6.2 g/dL Low 6.4-8.2 [facility] Triglycerides measurementOrd ered By: Jared Guzman on 12-27-2024 Triglyceride [Mass/Vol] 181 mg/dL <199 [facility] Comment on above: The drugs N-Acetylcy steine and Metamizole may falsely depress this assay.Serum Triglycerides Reference Interval Normal <150 mg/dL Borderline high 150 - 199 mg/dL High 200 - 499 mg/dL Very High > or = 500 mg/dL Very low density lipoprotein (VLDL) cholesterol measurementOrdered By: Jared Guzman on 12-27-2024 Very low density lipoprotein (VLDL) cholesterol measurement 36 mg/dL 5-40 [facility] VLDL Cholesterol 36 mg/dL 5-40 [facility] White blood cell (WBC) count Ordered By: Jared Guzman on 12-27-2024 WBC (Bld) [#/Vol] 6.9 10*3/uL 4.4-11.0 [facility] 36on 12-22-2024 36 Please advise. [facility] 36 Normal [facility] 36 Normal [facility] 36 [facility] 36on 12-21-2024 36 Normal [facility] 37on 12-21-2024 37 Normal [facility] Progress Noteon 12-21-2024 Progress Note Normal [facility] Progress Note Patient was verified by name and . Normal [facility] 36on 12-20-2024 36 Patients BGL [facility] 36on 12-13-2024 36 Called SNF s/w Nabil released message as written, she stated that she understood and had no questions. 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 Normal [facility] 36on 12-05-2024 36 Faxed recommendation s to [facility] at fax #: [phone]. Normal [facility] 36 Normal [facility] 36 Patient's BGL [facility] Albumin to globulin ratioOrd ered By: Jared Guzman on 12-05-2024 Albumin/Globulin [Mass ratio] 0.9 {ratio} 0.9-2.4 [facility] Bilirubin, totalOrdered By: Jared Guzman on 12-05-2024 Bilirubin [Mass/Vol] 0.50 mg/dL 0.20-1.00 [facility] Comment on above: For patients on eltr ombopag therapy, use of Dim[place] TBIL is not recommended. Blood urea nitrogen (BUN)/cr eatinine ratioOrdered By: Jared Guzman on 12-05-2024 Urea nitrogen/Creatinine [Mass ratio] 20.1 mg/mg High 10-20 [facility] CBC-Complete Blood Cnt No Di ffon 12-05-2024 Erythrocyte distribution width (RBC) [Ratio] 14.7 % High 11.6-14.6 [facility] Comment on above: Order Comment: 103.1 Performed By: #### L 100.0500, L500.4050 #### [facility] [address] [place], [address] Hematocrit (Bld) [Volume fraction] 35.9 % Low 37-47 [facility] Comment on above: Order Comment: 103.1 Performed By: #### L 100.0500, L500.4050 #### [facility] [address] [place], [address] Hemoglobin (Bld) [Mass/Vol] 11.1 g/dL Low 12.0-15.0 [facility] Comment on above: Order Comment: 103.1 Performed By: #### L 100.0500, L500.4050 #### [facility] [address] [place], [address] MCH (RBC) [Entitic mass] 26.5 pg Low 27.0-32.0 [facility] Comment on above: Order Comment: 103.1 Performed By: #### L 100.0500, L500.4050 #### [facility] [address] [place], [address] MCHC (RBC) [Mass/Vol] 30.9 g/dL Low 32-[address] [facility] Comment on above: Order Comment: 103.1 Performed By: #### L 100.0500, L500.4050 #### [facility] [address] [place], [address] MCV (RBC) [Entitic vol] 85.7 fL Normal 81-99 [facility] Comment on above: Order Comment: 103.1 Performed By: #### L 100.0500, L500.4050 #### [facility] [address] [place], [address] Platelet mean volume (Bld) [Entitic vol] 10.2 fL Normal 6.2-12.0 [facility] Comment on above: Order Comment: 103.1 Performed By: #### L 100.0500, L500.4050 #### [facility] [address] [place], [address] Platelets (Bld) [#/Vol] 355 10*3/uL Normal 150-450 [facility] Comment on above: Order Comment: 103.1 Performed By: #### L 100.0500, L500.4050 #### [facility] [address] [place], [address] RBC (Bld) [#/Vol] 4.19 10*6/uL Low 4.2-5.4 [facility] Comment on above: Order Comment: 103.1 Performed By: #### L 100.0500, L500.4050 #### [facility] [address] [place], [address] RDW SD 46.5 fl High 35.1-43.9 [facility] Comment on above: Order Comment: 103.1 Performed By: #### L 100.0500, L500.4050 #### [facility] [address] [place], [address] WBC (Bld) [#/Vol] 8.2 10*3/uL Normal 4.4-11.0 [facility] Comment on above: Order Comment: 103.1 Performed By: #### L 100.0500, L500.4050 #### [facility] [address] [place], [address] Carbon dioxide measurementOr dered By: Jared Guzman on 12-05-2024 CO2 [Moles/Vol] 31.0 mmol/L 21.0-32.0 [facility] Chloride measurementOrdered By: Jared Guzman on 12-05-2024 Chloride [Moles/Vol] 99 mmol/L 98-107 [facility] Comprehensive Metabolic Prof ilon 12-05-2024 Albumin [Mass/Vol] 3.0 g/dL Low 3.2-5.0 [facility] Comment on above: Order Comment: 103.1 Performed By: #### L 100.0500, L500.4050 #### [facility] [address] [place], [address] Albumin/Globulin [Mass ratio] 0.9 {ratio} Normal 0.9-2.4 [facility] Comment on above: Order Comment: 103.1 Performed By: #### L 100.0500, L500.4050 #### [facility] [address] [place], [address] ALK P 137 U/L High 45-117 [facility] Comment on above: Order Comment: 103.1 Performed By: #### L 100.0500, L500.4050 #### [facility] [address] [place], [address] ALT [Catalytic activity/Vol] 23 U/L Normal 13-56 [facility] Comment on above: Order Comment: 103.1 Performed By: #### L 100.0500, L500.4050 #### [facility] [address] [place], [address] AST [Catalytic activity/Vol] 12 U/L Low 15-37 [facility] Comment on above: Order Comment: 103.1 Performed By: #### L 100.0500, L500.4050 #### [facility] [address] [place], [address] Bilirubin [Mass/Vol] 0.50 mg/dL Normal 0.20-1.00 [facility] Comment on above: Order Comment: 103.1 Result Comment: For patients on eltrombopag therapy, use of Dimension [place] TBIL is not recommended. Performed By: #### L 100.0500, L500.4050 #### [facility] [address] [place], [address] BUN/CRE 20.1 RATIO High 10-20 [facility] Comment on above: Order Comment: 103.1 Performed By: #### L 100.0500, L500.4050 #### [facility] [address] [place], [address] CA,Total 9.0 mg/dL Normal 8.5-10.1 [facility] Comment on above: Order Comment: 103.1 Performed By: #### L 100.0500, L500.4050 #### [facility] [address] [place], [address] Chloride [Moles/Vol] 99 mmol/L Normal 98-107 [facility] Comment on above: Order Comment: 103.1 Performed By: #### L 100.0500, L500.4050 #### [facility] [address] [place], [address] CO2 [Moles/Vol] 31.0 mmol/L Normal 21.0-32.0 [facility] Comment on above: Order Comment: 103.1 Performed By: #### L 100.0500, L500.4050 #### [facility] [address] [place], [address] Creatinine [Mass/Vol] 0.70 mg/dL Normal 0.55-1.[address] [facility] Comment on above: Order Comment: 103.1 Result Comment: The validity of the calculated GFR GFRAA in patients over 70 years has not been determined. Clinical correlation is essential. Performed By: #### L 100.0500, L500.4050 #### [facility] [address] [place], [address] EST GFR - AA 111 mL/min Normal >60 [facility] Comment on above: Order Comment: 103.1 Result Comment: Afri can [place] GFR Calc Performed By: #### L 100.0500, L500.4050 #### [facility] [address] [place], [address] GAP 6 Normal 5-15 [facility] Comment on above: Order Comment: 103.1 Performed By: #### L 100.0500, L500.4050 #### [facility] [address] [place], [address] GFR/1.73 sq M.predicted among non-blacks MDRD (S/P/Bld) [Vol rate/Area] 92 mL/min/{1.73_m2} Normal >60 [facility] Comment on above: Order Comment: 103.1 Result Comment: Non- GFR Calc Performed By: #### L 100.0500, L500.4050 #### [facility] [address] [place], [address] Globulin (S) [Mass/Vol] 3.3 g/dL Normal 2.2-4.2 [facility] Comment on above: Order Comment: 103.1 Performed By: #### L 100.0500, L500.4050 #### [facility] [address] [place], [address] Glucose [Mass/Vol] 86 mg/dL Normal 74-106 [facility] Comment on above: Order Comment: 103.1 Performed By: #### L 100.0500, L500.4050 #### [facility] [address] [place], [address] Potassium [Moles/Vol] 3.0 mmol/L Low 3.5-5.[address] [facility] Comment on above: Order Comment: 103.1 Performed By: #### L 100.0500, L500.4050 #### [facility] [address] [place], [address] Sodium [Moles/Vol] 136 mmol/L Normal 136-145 [facility] Comment on above: Order Comment: 103.1 Performed By: #### L 100.0500, L500.4050 #### [facility] [address] [place], [address] T PROT 6.3 g/dL Low 6.4-8.2 [facility] Comment on above: Order Comment: 103.1 Performed By: #### L 100.0500, L500.4050 #### [facility] [address] [place], [address] Urea nitrogen [Mass/Vol] 14 mg/dL Normal 7-18 [facility] Comment on above: Order Comment: 103.1 Performed By: #### L 100.0500, L500.4050 #### [facility] [address] [place], [address] Erythrocyte distribution wid th ratioOrdered By: Jared Guzman on 12-05-2024 Erythrocyte distribution width (RBC) [Ratio] 14.7 % High 11.6-14.6 [facility] Erythrocyte distribution wid th standard deviationOrdered By: Jared Guzman on 12-05-2024 Erythrocyte distribution width (RBC) [Entitic vol] 46.5 fL High 35.1-43.9 [facility] Estimated glomerular filtrat ion rate (GFR) AmericanOrdered By: Jared Guzman on 12-05-2024 Estimated GFR (MDRD) Amer 111 mL/min >60 [facility] Comment on above: GFR Calc Glomerular filtration rate ( GFR) estimationOrdered By: Jared Guzman on 12-05-2024 Estimated GFR (MDRD) Non-Af Amer 92 mL/min >60 [facility] Comment on above: Non- GFR Calc Glucose measurementOrdered B y: Jared Guzman on 12-05-2024 Glucose [Mass/Vol] 86 mg/dL 74-106 [facility] Hematocrit Auto (Bld) [Volum e fraction]Ordered By: Jared Guzman on 12-05-2024 Hematocrit (Bld) [Volume fraction] 35.9 % Low 37-47 [facility] Hemoglobin measurementOrdere d By: Jared Guzman on 12-05-2024 Hemoglobin (Bld) [Mass/Vol] 11.1 g/dL Low 12.0-15.0 [facility] - Chemistry and C hemistry - challengeOrdered By: Jared Guzman on 12-05-2024 AST [Catalytic activity/Vol] 12 U/L Low 15-37 [facility] MCV (mean corpuscular volume ) determinationOrdered By: Jared Guzman on 12-05-2024 MCV (RBC) [Entitic vol] 85.7 fL 81-99 [facility] Mean corpuscular hemoglobin (MCH) determinationOrdered By: Jared Guzman on 12-05-2024 MCH (RBC) [Entitic mass] 26.5 pg Low 27.0-32.0 [facility] Mean corpuscular hemoglobin concentration (MCHC) determinationOrdered By: Jared Guzman on 12-05-2024 MCHC (RBC) [Mass/Vol] 30.9 g/dL Low 32-[address] [facility] Mean platelet volume determi nationOrdered By: Jared Guzman on 12-05-2024 Platelet mean volume (Bld) [Entitic vol] 10.2 fL 6.2-12.0 [facility] Platelet countOrdered By: Mracel Piper on 12-05-2024 Platelets (Bld) [#/Vol] 355 10*3/uL 150-450 [facility] Potassium measurementOrdered By: Jared Guzman on 12-05-2024 Potassium [Moles/Vol] 3.0 mmol/L Low 3.5-5.[address] [facility] RBC Auto (Bld) [#/Vol]Ordere d By: Jared Guzman on 12-05-2024 RBC (Bld) [#/Vol] 4.19 10*6/uL Low 4.2-5.4 [facility] Serum anion gap measurementO rdered By: Jared Guzman on 12-05-2024 Anion gap [Moles/Vol] 6 mmol/L 5-[address] [facility] Serum globulin measurementOr dered By: Jared Guzman on 12-05-2024 Globulin (S) [Mass/Vol] 3.3 g/dL 2.2-4.2 [facility] Serum or plasma alanine jones otransferase (ALT) measurementOrdered By: Jared Guzman on 12-05-2024 ALT [Catalytic activity/Vol] 23 U/L 13-56 [facility] Serum or plasma albumin mauricio urement (mass/volume)Ordered By: Jared Guzman on 12-05-2024 Albumin [Mass/Vol] 3.0 g/dL Low 3.2-5.0 [facility] Serum or plasma alkaline abbey sphatase measurementOrdered By: Jared Guzman on 12-05-2024 ALP [Catalytic activity/Vol] 137 U/L High 45-117 [facility] Serum or plasma calcium mauricio urement (mass/volume)Ordered By: Jared Guzman on 12-05-2024 Calcium [Mass/Vol] 9.0 mg/dL 8.5-10.1 [facility] Serum or plasma creatinine m easurement (mass/volume)Ordered By: Jared Guzman on 12-05-2024 Creatinine [Mass/Vol] 0.70 mg/dL 0.55-1.[address] [facility] Comment on above: The validity of the calculated GFR & GFRAA in patients over 70 years has not been determined. Clinical correlation is essential. Serum or plasma urea nitroge n measurement (mass/volume)Ordered By: Jared Guzman on 12-05-2024 Urea nitrogen [Mass/Vol] 14 mg/dL 7-18 [facility] Sodium levelOrdered By: Main Guzman on 12-05-2024 Sodium [Moles/Vol] 136 mmol/L 136-145 [facility] Total proteinOrdered By: Mike Guzman on 12-05-2024 Protein [Mass/Vol] 6.3 g/dL Low 6.4-8.2 [facility] White blood cell (WBC) count Ordered By: Jared Guzman on 12-05-2024 WBC (Bld) [#/Vol] 8.2 10*3/uL 4.4-11.0 [facility] 36on 12-01-2024 36 Faxed new insulin or cary to [facility] at fax #: [phone]. Normal [facility] BASIC METABOLIC PANELon 11-09 Anion gap [Moles/Vol] 10 mmol/L Normal 3-13 [facility] Comment on above: Performed By: #### L [id number] ####Chief Meteorologist: KEMAR ABEBE ([id number])[facility] ([facility])[address] [place] [address] Calcium [Mass/Vol] 9.0 mg/dL Normal 8.4-10.2 [facility] Comment on above: Performed By: #### L AB15 ####Chief Meteorologist: KEMAR ABEBE ([id number])[facility] ([facility])[address] Chloride [Moles/Vol] 102 mmol/L Normal 98-107 [facility] Comment on above: Performed By: #### L AB15 ####Chief Meteorologist: KEMAR ABEBE ([id number])[facility] ([facility])[address] CO2 [Moles/Vol] 25 mmol/L Normal 22-29 [facility] Comment on above: Performed By: #### L AB15 ####Chief Meteorologist: KEMAR ABEBE ([id number])[facility] ([facility])[address] Creatinine [Mass/Vol] 0.67 mg/dL Normal [facility] Comment on above: Performed By: #### L AB15 ####Chief Meteorologist: KEMAR ABEBE ([id number])[facility] ([facility])[address] GLOMERULAR FILTRATION RATE ML/MIN/1.73 SQ M.PREDICTED >90.0 Normal >60.0 [facility] Comment on above: Result Comment: Calc ulation based on the Chronic Kidney Disease Epidemiology Collaboration (CKD-EPI) equation refit without adjustment for race Performed By: #### L AB15 ####Chief Meteorologist: KEMAR ABEBE ([id number])[facility] ([facility])[address] Glucose [Mass/Vol] 215 mg/dL High 74-100 [facility] Comment on above: Performed By: #### L [id number] ####Chief Meteorologist: KEMAR ABEBE ([id number])[facility] ([facility])[address] [place] [address] [place] Potassium [Moles/Vol] 3.4 mmol/L Low 3.5-5.1 [facility] Comment on above: Result Comment: [facility] potassium values may be up to 0.5 mmol/L lower than serum values. Performed By: #### L AB15 ####Chief Meteorologist: KEMAR ABEBE ([phone])[facility] ([facility])[address] Sodium [Moles/Vol] 137 mmol/L Normal 136-145 [facility] Comment on above: Performed By: #### L AB15 ####Chief Meteorologist: KEMAR LUDWIGSAAD ([id number])[facility] ([facility])[address] Urea nitrogen [Mass/Vol] 10 mg/dL Normal - [facility] Comment on above: Performed By: #### L [id number] ####Chief Meteorologist: KEMAR ANDRAE ([id number])[facility] ([facility])[address] Consulton 12-01-2024 Consult Normal [facility] ED Nursing Noteon 12-01-2024 ED Nursing Note Normal [facility] Progress Noteon 12-01-2024 Progress Note Normal [facility] Progress Note Normal [facility] Albumin to globulin ratioOrd ered By: Jared Guzman on 11-30-2024 Albumin/Globulin [Mass ratio] 0.4 {ratio} Low 0.9-2.4 [facility] Bilirubin, totalOrdered By: Jared Guzman on 11-30-2024 Bilirubin [Mass/Vol] 0.40 mg/dL 0.20-1.00 [facility] Comment on above: For patients on eltr ombopag therapy, use of Dim[place] TBIL is not recommended. Blood urea nitrogen (BUN)/cr eatinine ratioOrdered By: Jared Guzman on 11-30-2024 Urea nitrogen/Creatinine [Mass ratio] 10.5 mg/mg 10-20 [facility] CBC WITH AUTO DIFFERENTIALon 11-30-2024 Basophils (Bld) [#/Vol] 0.0 10*3/uL Normal 0.0-0.2 [facility] Comment on above: Performed By: #### L [id number] ####Chief Meteorologist: KEMAR LUDWIGSAAD ([id number])[facility] [place] ([facility])[address] [place] [address] [place] Basophils/100 WBC (Bld) 0.2 % Normal 0.0-2.0 [facility] Comment on above: Performed By: #### L [id number] ####Chief Meteorologist: KEMAR ABEBE ([id number])[facility] [place] ([facility])[address] [place] [address] Eosinophils (Bld) [#/Vol] 0.1 10*3/uL Normal 0.0-0.5 [facility] Comment on above: Performed By: #### L [id number] ####Chief Meteorologist: KEMAR ABEBE ([id number])[facility] ([facility])[address] [place] [address] Eosinophils/100 WBC (Bld) 1.2 % Normal 0.0-6.0 [facility] Comment on above: Performed By: #### L [id number] ####Chief Meteorologist: KEMAR ABEBE ([id number])[facility] ([facility])[address] [place] [address] Erythrocyte distribution width (RBC) [Ratio] 14.7 % Normal 11.5-15.0 [facility] Comment on above: Performed By: #### L [id number] ####Chief Meteorologist: KEMAR ABEBE ([id number])[facility] [place] ([facility])[address] [place] [address] Hematocrit (Bld) [Volume fraction] 37.5 % Normal Male: 40.0-52.0 ; Female: 35.0-47.0 [facility] Comment on above: Performed By: #### L [id number] ####Chief Meteorologist: KEMAR ABEBE ([id number])[facility] [place] ([facility])[address] [place] [address] Hemoglobin (Bld) [Mass/Vol] 12.0 g/dL Normal 11.7-18.0 [facility] Comment on above: Performed By: #### L [id number] ####Chief Meteorologist: KEMAR ABEBE ([id number])[facility] ([facility])[address] IMMATURE GRANS % 0.6 % Normal 0.0-2.0 [facility] Comment on above: Performed By: #### L [id number] ####Chief Meteorologist: KEMAR ABEBE ([id number])[facility] [place] ([facility])[address] IMMATURE GRANS ABSOLUTE 0.1 10*3/uL High <0.1 [facility] Comment on above: Performed By: #### L [id number] ####Chief Meteorologist: KEMAR ABEBE ([id number])[facility] ([facility])[address] Lymphocytes (Bld) [#/Vol] 1.3 10*3/uL Normal 1.0-4.3 [facility] Comment on above: Performed By: #### L [id number] ####Chief Meteorologist: KEMAR ABEBE ([id number])[facility] ([facility])[address] Lymphocytes/100 WBC (Bld) 15.0 % Normal 15.0-45.0 [facility] Comment on above: Performed By: #### L [id number] ####Chief Meteorologist: KEMAR ABEBE ([id number])[facility] [place] ([facility])[address] MCH (RBC) [Entitic mass] 26.8 pg Normal 26.0-34.0 [facility] Comment on above: Performed By: #### L [id number] ####Chief Meteorologist: KEMAR ABEBE ([id number])[facility] [place] ([facility])[address] MCHC 32.0 % Normal 30.5-36.0 [facility] Comment on above: Performed By: #### L [id number] ####Chief Meteorologist: KEMAR ABEBE ([id number])[facility] (SB[facility]AB)[address] MCV (RBC) [Entitic vol] 83.9 fL Normal 77.0-99.0 [facility] Comment on above: Performed By: #### L [id number] ####Chief Meteorologist: KEMAR ABEBE ([phone])[facility] (SBHLAB)[address] Monocytes (Bld) [#/Vol] 0.3 10*3/uL Normal 0.0-0.9 [facility] Comment on above: Performed By: #### L [id number] ####Chief Meteorologist: KEMAR ABEBE ([phone])[facility] [place] ([facility])[address] Monocytes/100 WBC (Bld) 3.7 % Low 5.0-13.0 [facility] Comment on above: Performed By: #### L [id number] ####Chief Meteorologist: KEMAR ABEBE ([phone])[facility] [place] ([facility])[address] NEUTROPHILS ABSOLUTE 7.0 10*3/uL Normal 1.8-7.5 [facility] Comment on above: Performed By: #### L [id number] ####Chief Meteorologist: KEMAR ABEBE ([phone])[facility] [place] ([facility])[address] Neutrophils/100 WBC (Bld) 79.3 % Normal 38.0-82.0 [facility] Comment on above: Performed By: #### L [id number] ####Chief Meteorologist: KEMAR ABEBE ([phone])[facility] [place] ([facility])[address] NRBC 0.0 /100 WBCs Normal 0.0-2.0 [facility] Comment on above: Performed By: #### L [id number] ####Chief Meteorologist: KEMAR ABEBE ([phone])[facility] [place] ([facility])[address] Platelet mean volume (Bld) [Entitic vol] 9.5 fL Normal 9.0-12.7 [facility] Comment on above: Performed By: #### L [id number] ####Chief Meteorologist: KEMAR ABEBE ([phone])[facility]ENTER[facility] (SBHLAB)[address] Platelets (Bld) [#/Vol] 384 10*3/uL Normal 140-440 [facility] Comment on above: Performed By: #### L [id number] ####Chief Meteorologist: KEMAR ABEBE ([phone])[facility] ([facility] [place] [address] RBC (Bld) [#/Vol] 4.47 10*6/uL Normal Male: 4.40-5.90; Female: 3.80-5.20 [facility] Comment on above: Performed By: #### L [id number] ####Chief Meteorologist: KEMAR ABEBE ([phone])[facility] [place] ([facility])[address] [place] [address] WBC (Bld) [#/Vol] 8.8 10*3/uL Normal 3.6-10.7 [facility] Comment on above: Performed By: #### L [id number] ####Chief Meteorologist: KEMAR ABEBE ([phone])[facility] ([facility])[address] [place] [address] CBC-Complete Blood Cnt No Di ffon 11-30-2024 Erythrocyte distribution width (RBC) [Ratio] 15.1 % High 11.6-14.6 [facility] Comment on above: Order Comment: 103.1 Performed By: #### L 100.0500, L500.4050 #### [facility] [address] [place], [address] Hematocrit (Bld) [Volume fraction] 34.7 % Low 37-47 [facility] Comment on above: Order Comment: 103.1 Performed By: #### L 100.0500, L500.4050 #### [facility] [address] [place], [address] Hemoglobin (Bld) [Mass/Vol] 10.8 g/dL Low 12.0-15.0 [facility] Comment on above: Order Comment: 103.1 Performed By: #### L 100.0500, L500.4050 #### [facility] [address] [place], [address] MCH (RBC) [Entitic mass] 26.6 pg Low 27.0-32.0 [facility] Comment on above: Order Comment: 103.1 Performed By: #### L 100.0500, L500.4050 #### [facility] [address] [place], [address] MCHC (RBC) [Mass/Vol] 31.1 g/dL Low 32-[address] [facility] Comment on above: Order Comment: 103.1 Performed By: #### L 100.0500, L500.4050 #### [facility] [address] [place], [address] MCV (RBC) [Entitic vol] 85.5 fL Normal 81-99 [facility] Comment on above: Order Comment: 103.1 Performed By: #### L 100.0500, L500.4050 #### [facility] [address] [place], [address] Platelet mean volume (Bld) [Entitic vol] 10.0 fL Normal 6.2-12.0 [facility] Comment on above: Order Comment: 103.1 Performed By: #### L 100.0500, L500.4050 #### [facility] [address] [place], [address] Platelets (Bld) [#/Vol] 375 10*3/uL Normal 150-450 [facility] Comment on above: Order Comment: 103.1 Performed By: #### L 100.0500, L500.4050 #### [facility] [address] [place], [address] RBC (Bld) [#/Vol] 4.06 10*6/uL Low 4.2-5.4 [facility] Comment on above: Order Comment: 103.1 Performed By: #### L 100.0500, L500.4050 #### [facility] [address] [place], [address] RDW SD 46.6 fl High 35.1-43.9 [facility] Comment on above: Order Comment: 103.1 Performed By: #### L 100.0500, L500.4050 #### [facility] [address] [place], [address] WBC (Bld) [#/Vol] 8.4 10*3/uL Normal 4.4-11.0 [facility] Comment on above: Order Comment: 103.1 Performed By: #### L 100.0500, L500.4050 #### [facility] [address] [place], [address] COMPLETE URINALYSISon 2024 BACTERIA (#/HPF) IN URINE Negative Normal Negative [facility] Comment on above: Performed By: #### L [id number] ####Chief Meteorologist: KEMAR ABEBE ([phone])[facility] (SBHLAB)[address] [place] [address] BILIRUBIN, TOTAL PRESENCE IN URINE Negative Normal Negative [facility] Comment on above: Performed By: #### L [id number] ####Chief Meteorologist: KEMAR ABEBE ([phone])[facility] (SBHLAB)[address] [place] [address] Clarity (U) Clear Normal Clear [facility] Comment on above: Performed By: #### L [id number] ####Chief Meteorologist: KEMAR ABEBE ([phone])[facility] (SB[facility])[address] Color (U) Light Yellow Normal Lt. Yellow [facility] Comment on above: Performed By: #### L [id number] ####Chief Meteorologist: KEMAR ABEBE ([phone])[facility] (SBHLAB)[address] Glucose (U) [Mass/Vol] 50 mg/dL Normal Janey l (<70) [facility] Comment on above: Performed By: #### L [id number] ####Chief Meteorologist: KEMAR ABEBE ([phone])[facility])[address] HEMOGLOBIN PRESENCE IN URINE 1.0 mg/dL Abnormal Negative [facility] Comment on above: Performed By: #### L [id number] ####Chief Meteorologist: KEMAR ABEBE ([phone])[facility])[address] HYALINE CASTS (#/LPF) IN URINE SEDIMENT BY MICROSCOPY 0-2 Abnormal Negative [facility] Comment on above: Performed By: #### L [id number] ####Chief Meteorologist: KEMAR ABEBE ([phone])[facility])[address] Ketones Ql (U) Trace Abnormal Negative [facility] Comment on above: Performed By: #### L [id number] ####Chief Meteorologist: KEMAR ABEBE ([phone])[facility])[address] LEUKOCYTE ESTERASE PRESENCE IN URINE BY TEST STRIP Negative Normal Negative [facility] Comment on above: Performed By: #### L [id number] ####Chief Meteorologist: KEMAR ABEBE ([phone])[facility])[address] [place] [address] [place] MUCUS (#/LPF) IN URINE SEDIMENT Few Normal Negative [facility] Comment on above: Performed By: #### L [id number] ####Chief Meteorologist: KEMAR ABEBE ([id number])[facility] [place] ([facility])[address] [place] [address] [place] NITRITE PRESENCE IN URINE Negative Normal Negative [facility] Comment on above: Performed By: #### L [id number] ####Chief Meteorologist: KEMAR ABEBE ([phone])[facility] [place] ([facility])[address] pH (U) 6.0 [pH] Normal 5.0-8.0 [facility] Comment on above: Performed By: #### L [id number] ####Chief Meteorologist: KEMAR ABEBE ([phone])[facility] ([facility])[address] Protein (U) [Mass/Vol] 100 mg/dL Abnormal Negative [facility] Comment on above: Performed By: #### L [id number] ####Chief Meteorologist: KEMAR ABEBE ([phone])[facility] [place] ([facility])[address] [place] [address] [place] RBC (#/HPF) IN URINE SEDIMENT >100 Abnormal 0-2 [facility] Comment on above: Performed By: #### L [id number] ####Chief Meteorologist: KEMAR ABEBE ([phone])[facility] ([facility])[address] Specific gravity (U) [Rel density] 1.012 Normal 1.005-1.030 [facility] Comment on above: Performed By: #### L [id number] ####Chief Meteorologist: KEMAR ABEBE ([phone])[facility] [place] ([facility])[address] [place] [address] [place] SQUAMOUS EPITHELIAL CELLS (#/HPF) IN URINE SEDIMENT 3-5 Normal 3-5 [facility] Comment on above: Performed By: #### L [id number] ####Chief Meteorologist: KEMAR ABEBE ([phone])[facility] ([facility])[address] UROBILINOGEN (MG/DL) IN URINE Normal Normal Normal (0-1) [facility] Comment on above: Performed By: #### L [id number] ####Chief Meteorologist: KEMAR ABEBE ([phone])[facility] [place] (SB[facility])[address] WBC (LEUKOCYTE) (#/HPF) IN URINE SEDIMENT 0-2 Normal 0-5 [facility] Comment on above: Performed By: #### L [id number] ####Chief Meteorologist: KEMAR ABEBE ([phone])[facility] [place] ([facility])[address] COMPREHENSIVE METABOLIC PANE Gigi 11-30-2024 Albumin [Mass/Vol] 3.4 g/dL Low 3.5-5.0 [facility] Comment on above: Performed By: #### L [id number], LAB17, [id number], LAB99 ####Chief Meteorologist: KEMAR ABEBE ([id number])[facility] [place] ([facility])[address] ALP [Catalytic activity/Vol] 145 U/L Normal [facility] Comment on above: Performed By: #### L [id number], LAB17, FHN818, LAB99 ####Chief Meteorologist: KEMAR ABEBE ([phone])[facility] [place] ([facility])[address] ALT [Catalytic activity/Vol] 21 U/L Normal [facility] Comment on above: Performed By: #### L [id number], LAB17, VQO531, LAB99 ####Chief Meteorologist: KEMAR ABEBE ([phone])[facility] [place] (SB[facility])[address] Anion gap [Moles/Vol] 11 mmol/L Normal 3-13 [facility] Comment on above: Performed By: #### L [id number], LAB17, RTK146, LAB99 ####Chief Meteorologist: KEMAR ABEBE ([phone])[facility] [place] (SB[facility]AB)[address] AST [Catalytic activity/Vol] 21 U/L Normal <34 [facility] Comment on above: Performed By: #### L [id number], LAB17, AUV567, LAB99 ####Chief Meteorologist: KEMAR ABEBE ([id number])[facility]ENTER[facility] (SBHLAB)[address] Bilirubin [Mass/Vol] 0.5 mg/dL Normal <1.2 [facility] Comment on above: Performed By: #### L [id number], LAB17, FTY806, LAB99 ####Chief Meteorologist: KEMAR ABEBE ([phone])[facility] [place] ([facility])[address] Calcium [Mass/Vol] 8.9 mg/dL Normal 8.4-10.2 [facility] Comment on above: Performed By: #### L [id number], LAB17, AGQ090, LAB99 ####Chief Meteorologist: KEMAR ABEBE ([phone])[facility] [place] (SBHLAB)[address] [place] [address] [place] Chloride [Moles/Vol] 99 mmol/L Normal 98-107 [facility] Comment on above: Performed By: #### L [id number], LAB17, PVQ781, LAB99 ####Chief Meteorologist: KEMAR ABEBE ([id number])[facility] (SBHLAB)[address] [place] [address] [place] CO2 [Moles/Vol] 28 mmol/L Normal 22-29 [facility] Comment on above: Performed By: #### L [id number], LAB17, QYU678, LAB99 ####Chief Meteorologist: KEMAR ABEBE ([phone])[facility] (SB[facility])[address] Creatinine [Mass/Vol] 0.73 mg/dL Normal [facility] Comment on above: Performed By: #### L [id number], LAB17, GQY526, LAB99 ####Chief Meteorologist: KEMAR ABEBE ([phone])[facility])[address] GLOMERULAR FILTRATION RATE ML/MIN/1.73 SQ M.PREDICTED >90.0 Normal >60.0 [facility] Comment on above: Result Comment: Calc ulation based on the Chronic Kidney Disease Epidemiology Collaboration (CKD-EPI) equation refit without adjustment for race Performed By: #### L [id number], LAB17, DFS514, LAB99 ####Chief Meteorologist: KEMAR ABEBE ([id number])[facility] ([facility])[address] Glucose [Mass/Vol] 249 mg/dL High 74-100 [facility] Comment on above: Performed By: #### L [id number], LAB17, ROL431, LAB99 ####Chief Meteorologist: KEMAR ABEBE ([id number])[facility])[address] Potassium [Moles/Vol] 3.4 mmol/L Low 3.5-5.1 [facility] Comment on above: Result Comment: [facility] potassium values may be up to 0.5 mmol/L lower than serum values. Performed By: #### L [id number], LAB17, EBS906, LAB99 ####Chief Meteorologist: KEMAR ABEBE ([id number])[facility] ([facility])[address] Protein [Mass/Vol] 6.7 g/dL Normal 6.4-8.3 [facility] Comment on above: Performed By: #### L [id number], LAB17, IMR569, LAB99 ####Chief Meteorologist: KEMAR ABEBE ([id number])[facility] (HLAB)[address] Sodium [Moles/Vol] 138 mmol/L Normal 136-145 [facility] Comment on above: Performed By: #### L [id number], LAB17, QWL622, LAB99 ####Chief Meteorologist: KEMAR ABEBE ([id number])[facility] (SB[facility])[address] Urea nitrogen [Mass/Vol] 10 mg/dL Normal 9-23 [facility] Comment on above: Performed By: #### L [id number], LAB17, RRS483, LAB99 ####Chief Meteorologist: KEMAR ABEBE ([phone])[facility]ENTERJ[facility] (SB[facility]AB)[address] Carbon dioxide measurementOr dered By: Jared Guzman on 11-30-2024 CO2 [Moles/Vol] 18.0 mmol/L Low 21.0-32.0 [facility] Chloride measurementOrdered By: Jared Guzman on 11-30-2024 Chloride [Moles/Vol] 104 mmol/L 98-107 [facility] Comprehensive Metabolic Prof ilon 11-30-2024 Albumin [Mass/Vol] 2.0 g/dL Low 3.2-5.0 [facility] Comment on above: Order Comment: 103.1 Performed By: #### L 100.0500, L500.4050 #### [facility] [address] [place], [address] Albumin/Globulin [Mass ratio] 0.4 {ratio} Low 0.9-2.4 [facility] Comment on above: Order Comment: 103.1 Performed By: #### L 100.0500, L500.4050 #### [facility] [address] [place], [address] ALK P 137 U/L High 45-117 [facility] Comment on above: Order Comment: 103.1 Performed By: #### L 100.0500, L500.4050 #### [facility] [address] [place], [address] ALT [Catalytic activity/Vol] 26 U/L Normal 13-56 [facility] Comment on above: Order Comment: 103.1 Performed By: #### L 100.0500, L500.4050 #### [facility] [address] [place], [address] AST [Catalytic activity/Vol] 15 U/L Normal 15-37 [facility] Comment on above: Order Comment: 103.1 Performed By: #### L 100.0500, L500.4050 #### [facility] [address] [place], [address] Bilirubin [Mass/Vol] 0.40 mg/dL Normal 0.20-1.00 [facility] Comment on above: Order Comment: 103.1 Result Comment: For patients on eltrombopag therapy, use of Dimension [place] TBIL is not recommended. Performed By: #### L 100.0500, L500.4050 #### [facility] [address] [place], [address] BUN/CRE 10.5 RATIO Normal 10-20 [facility] Comment on above: Order Comment: 103.1 Performed By: #### L 100.0500, L500.4050 #### [facility] [address] [place], [address] CA,Total 5.9 mg/dL Invalid Interpretation Code 8.5-10.1 [facility] Comment on above: Order Comment: 103.1 Performed By: #### L 100.0500, L500.4050 #### [facility] [address] [place], [address] Chloride [Moles/Vol] 104 mmol/L Normal 98-107 [facility] Comment on above: Order Comment: 103.1 Performed By: #### L 100.0500, L500.4050 #### [facility] [address] [place], [address] CO2 [Moles/Vol] 18.0 mmol/L Low 21.0-32.0 [facility] Comment on above: Order Comment: 103.1 Performed By: #### L 100.0500, L500.4050 #### [facility] [address] [place], [address] Creatinine [Mass/Vol] 0.57 mg/dL Normal 0.55-1.[address] [facility] Comment on above: Order Comment: 103.1 Result Comment: The validity of the calculated GFR GFRAA in patients over 70 years has not been determined. Clinical correlation is essential. Performed By: #### L 100.0500, L500.4050 #### [facility] [address] [place], [address] EST GFR - AA 140 mL/min Normal >60 [facility] Comment on above: Order Comment: 103.1 Result Comment: Afri can [place] GFR Calc Performed By: #### L 100.0500, L500.4050 #### [facility] [address] [place], [address] GAP 16 High 5-15 [facility] Comment on above: Order Comment: 103.1 Performed By: #### L 100.0500, L500.4050 #### [facility] [address] [place], [address] GFR/1.73 sq M.predicted among non-blacks MDRD (S/P/Bld) [Vol rate/Area] 116 mL/min/{1.73_m2} Normal >60 [facility] Comment on above: Order Comment: 103.1 Result Comment: Non- GFR Calc Performed By: #### L 100.0500, L500.4050 #### [facility] [address] [place], [address] Globulin (S) [Mass/Vol] 4.6 g/dL High 2.2-4.2 [facility] Comment on above: Order Comment: 103.1 Performed By: #### L 100.0500, L500.4050 #### [facility] [address] [place] [place], [address] Glucose [Mass/Vol] 72 mg/dL Low 74-106 [facility] Comment on above: Order Comment: 103.1 Performed By: #### L 100.0500, L500.4050 #### [facility] [address] [place], [address] Potassium [Moles/Vol] 3.3 mmol/L Low 3.5-5.[address] [facility] Comment on above: Order Comment: 103.1 Performed By: #### L 100.0500, L500.4050 #### [facility] [address] [place], [address] Sodium [Moles/Vol] 138 mmol/L Normal 136-145 [facility] Comment on above: Order Comment: 103.1 Performed By: #### L 100.0500, L500.4050 #### [facility] [address] [place], [address] T PROT 6.6 g/dL Normal 6.4-8.2 [facility] Comment on above: Order Comment: 103.1 Performed By: #### L 100.0500, L500.4050 #### [facility] [address] [place], [address] Urea nitrogen [Mass/Vol] 6 mg/dL Low 7-18 [facility] Comment on above: Order Comment: 103.1 Performed By: #### L 100.0500, L500.4050 #### [facility] [address] [place], [address] ED Nursing Noteon 11-30-2024 ED Nursing Note Patient has had some chest discomfort since this morning. Recently had a PICC line placed in upper right arm for fluids. Normal [facility] ED Provider Noteon ED Provider Note Normal [facility] Erythrocyte distribution wid th ratioOrdered By: Jared Guzman on 11-30-2024 Erythrocyte distribution width (RBC) [Ratio] 15.1 % High 11.6-14.6 [facility] Erythrocyte distribution wid th standard deviationOrdered By: Jared Guzman on 11-30-2024 Erythrocyte distribution width (RBC) [Entitic vol] 46.6 fL High 35.1-43.9 [facility] Estimated glomerular filtrat ion rate (GFR) AmericanOrdered By: Jared Guzman on 11-30-2024 Estimated GFR (MDRD) Amer 140 mL/min >60 [facility] Comment on above: GFR Calc Glomerular filtration rate ( GFR) estimationOrdered By: Jared Guzman on 11-30-2024 Estimated GFR (MDRD) Non-Af Amer 116 mL/min >60 [facility] Comment on above: Non- GFR Calc Glucose measurementOrdered B y: Jared Guzman on 11-30-2024 Glucose [Mass/Vol] 72 mg/dL Low 74-106 [facility] HIGH SENSITIVITY TROPONIN, S ERIAL BASELINEon 11-30-2024 TROPONIN HIGH SENSITIVITY BASELINE <3 Normal [facility] Comment on above: Performed By: #### L [id number] ####Chief Meteorologist: KEMAR ABEBE ([phone])[facility] ([facility])[address] [place] [address] TROPONIN HIGH SENSITIVITY BASELINE <3 Normal [facility] Comment on above: Performed By: #### L [id number], LAB17, LJC538, LAB99 ####Chief Meteorologist: KEMAR ABEBE ([phone])[facility] ([facility])[address] [place] [address] HIGH SENSITIVITY TROPONIN, S ERIAL, SECOND TESTon 11-30-2024 TROPONIN HS, SERIAL REFLEX, TEST TWO <3 Normal [facility] Comment on above: Performed By: #### L [id number] ####Chief Meteorologist: KEMAR ABEBE ([id number])[facility])[address] [place] [address] Hematocrit Auto (Bld) [Volum e fraction]Ordered By: Jared Guzman on 11-30-2024 Hematocrit (Bld) [Volume fraction] 34.7 % Low 37-47 [facility] Hemoglobin measurementOrdere d By: Jared Guzman on 11-30-2024 Hemoglobin (Bld) [Mass/Vol] 10.8 g/dL Low 12.0-15.0 [facility] LIPASEon 11-30-2024 Lipase [Catalytic activity/Vol] 7 U/L Normal <55 [facility] Comment on above: Performed By: #### L [id number], LAB17, [id number], LAB99 ####Chief Meteorologist: KEMAR ABEBE ([phone])[facility])[address] [place] [address] Laboratory - Chemistry and C hemistry - challengeOrdered By: Jared Guzman on 11-30-2024 AST [Catalytic activity/Vol] 15 U/L 15-37 [facility] MAGNESIUMon 11-30-2024 Magnesium [Mass/Vol] 1.5 mg/dL Low 1.6-2.6 [facility] Comment on above: Result Comment: MARIE R COMMENTS:Higher values can be expected in females during menses. Performed By: #### L [id number], LAB17, [id number], LAB99 ####Chief Meteorologist: KEMAR ABEBE ([phone])[facility])[address] [place] [address] MCV (mean corpuscular volume ) determinationOrdered By: Jared Guzman on 11-30-2024 MCV (RBC) [Entitic vol] 85.5 fL 81-99 [facility] Mean corpuscular hemoglobin (MCH) determinationOrdered By: Jared Guzman on 11-30-2024 MCH (RBC) [Entitic mass] 26.6 pg Low 27.0-32.0 [facility] Mean corpuscular hemoglobin concentration (MCHC) determinationOrdered By: Jared Guzman on 11-30-2024 MCHC (RBC) [Mass/Vol] 31.1 g/dL Low 32-[address] [facility] Mean platelet volume determi nationOrdered By: Jared Guzman on 11-30-2024 Platelet mean volume (Bld) [Entitic vol] 10.0 fL 6.2-12.0 [facility] Platelet countOrdered By: Marcel Piper on 11-30-2024 Platelets (Bld) [#/Vol] 375 10*3/uL 150-450 [facility] Potassium measurementOrdered By: Jared Guzman on 11-30-2024 Potassium [Moles/Vol] 3.3 mmol/L Low 3.5-5.[address] [facility] RBC Auto (Bld) [#/Vol]Ordere d By: Jared Guzman on 11-30-2024 RBC (Bld) [#/Vol] 4.06 10*6/uL Low 4.2-5.4 [facility] Serum anion gap measurementO rdered By: Jared Guzman on 11-30-2024 Anion gap [Moles/Vol] 16 mmol/L High 5-[address] [facility] Serum globulin measurementOr dered By: Jared Guzman on 11-30-2024 Globulin (S) [Mass/Vol] 4.6 g/dL High 2.2-4.2 [facility] Serum or plasma alanine jones otransferase (ALT) measurementOrdered By: Jared Guzman on 11-30-2024 ALT [Catalytic activity/Vol] 26 U/L 13-56 [facility] Serum or plasma albumin mauricio urement (mass/volume)Ordered By: Jared Guzman on 11-30-2024 Albumin [Mass/Vol] 2.0 g/dL Low 3.2-5.0 [facility] Serum or plasma alkaline abbey sphatase measurementOrdered By: Jared Guzman on 11-30-2024 ALP [Catalytic activity/Vol] 137 U/L High 45-117 [facility] Serum or plasma calcium mauricio urement (mass/volume)Ordered By: Jared Guzman on 11-30-2024 Calcium [Mass/Vol] 5.9 mg/dL Low 8.5-10.1 [facility] Serum or plasma creatinine m easurement (mass/volume)Ordered By: Jared Guzman on 11-30-2024 Creatinine [Mass/Vol] 0.57 mg/dL 0.55-1.[address] [facility] Comment on above: The validity of the calculated GFR & GFRAA in patients over 70 years has not been determined. Clinical correlation is essential. Serum or plasma urea nitroge n measurement (mass/volume)Ordered By: Jared Guzman on 11-30-2024 Urea nitrogen [Mass/Vol] 6 mg/dL Low 7-18 [facility] Sodium levelOrdered By: Main Guzman on 11-30-2024 Sodium [Moles/Vol] 138 mmol/L 136-145 [facility] Total proteinOrdered By: Mike Guzman on 11-30-2024 Protein [Mass/Vol] 6.6 g/dL 6.4-8.2 [facility] US ABDOMEN LIMITEDon 025 US ABDOMEN LIMITED [facility] White blood cell (WBC) count Ordered By: Jared Guzman on 11-30-2024 WBC (Bld) [#/Vol] 8.4 10*3/uL 4.4-11.0 [facility] 36on 11-28-2024 36 I have reviewed the pt's glucose log. Based on interpretation of the FSBS data I recommend the following changes to the pt's antihyperglycemic regimen: Please increase Humulin u500 to 140 units three times daily before meals. Med rec updated: Yes [facility] 36 Patients BGL [facility] 36on 11-22-2024 36 [facility] 36 Unable to reach Nayan h at to reschedule appt with Makayla Guerrero on 11/27/2024. Called again at [phone] and spoke to Quiana again. Rescheduled pt to 01/01/25 and per Quiana [facility] will call if there is a problem with this date/time. [facility] 36on 11-21-2024 36 [facility] 36 Patient's BGL [facility] 36on 11-20-2024 36 Addendum completed. Sending message to provider as FYI, please indicate if/when patient needs fu with provider to review. Will forward to staff to schedule if indicated. Thank you. [facility] 36on 11-19-2024 [address] [facility] [address] CHEST ANGIOGRAM W AND/OR WO IV CONTRASTon 11-18-2024 CT CHEST ANGIOGRAM W AND/OR WO IV CONTRAST Normal [facility] 36on 11-15-2024 36 Patient's BGL Normal [facility] 36on 11-14-2024 36 Noted. Request email ed to radiology team. Normal [facility] Progress Noteon 11-14-2024 Progress Note Normal [facility] 36on 11-13-2024 36 Normal [facility] BASIC METABOLIC PANELon Anion gap [Moles/Vol] 10 mmol/L Normal 3-13 [facility] Comment on above: Performed By: #### L AB15, LAB20, LAB99 ####Chief Meteorologist: KEMAR ABEBE ([id number])[facility]ITAL[facility] BAR[facility]ATIA (SBHLAB)[address] Calcium [Mass/Vol] 8.7 mg/dL Normal 8.4-10.2 [facility] Comment on above: Performed By: #### L AB15, LAB20, LAB99 ####Chief Meteorologist: KEMAR ABEBE ([id number])[facility]ITAL[facility] [place] (SBHLAB)[address] Chloride [Moles/Vol] 105 mmol/L Normal 98-107 [facility] Comment on above: Performed By: #### L AB15, LAB20, LAB99 ####Chief Meteorologist: KEMAR ABEBE ([id number])[facility]ITAL[facility] BARBMARYN (SBHLAB)155 [place] [address] [place] CO2 [Moles/Vol] 26 mmol/L Normal 22-29 [facility] Comment on above: Performed By: #### L AB15, LAB20, LAB99 ####Chief Meteorologist: KEMAR ABEBE ([id number])[facility]ITALA BARBMARYN (SBHLAB)[address] [place] [address] [place] Creatinine [Mass/Vol] 1.01 mg/dL Normal [facility] Comment on above: Performed By: #### L AB15, LAB20, LAB99 ####Chief Meteorologist: KEMAR ABEBE ([id number])[facility] (SBHLAB)[address] GLOMERULAR FILTRATION RATE ML/MIN/1.73 SQ M.PREDICTED 64.7 mL/min/1.73m*2 Normal >60.0 [facility] Comment on above: Result Comment: Calc ulation based on the Chronic Kidney Disease Epidemiology Collaboration (CKD-EPI) equation refit without adjustment for race Performed By: #### L AB15, LAB20, LAB99 ####Chief Meteorologist: KEMAR ABEBE ([id number])[facility] (SBHLAB)[address] Glucose [Mass/Vol] 87 mg/dL Normal 74-100 [facility] Comment on above: Performed By: #### L AB15, LAB20, LAB99 ####Chief Meteorologist: KEMAR ABEBE ([phone])[facility] (SBHLAB)[address] Potassium [Moles/Vol] 3.9 mmol/L Normal 3.5-5.1 [facility] Comment on above: Result Comment: [facility] potassium values may be up to 0.5 mmol/L lower than serum values. Performed By: #### L AB15, LAB20, LAB99 ####Chief Meteorologist: KEMAR ABEBE ([id number])[facility] (SBHLAB)[address] Sodium [Moles/Vol] 141 mmol/L Normal 136-145 [facility] Comment on above: Performed By: #### L AB15, LAB20, LAB99 ####Chief Meteorologist: KEMAR ABEBE ([id number])[facility] (SBHLAB)[address] Urea nitrogen [Mass/Vol] 18 mg/dL Normal 9-23 [facility] Comment on above: Performed By: #### L AB15, LAB20, LAB99 ####Chief Meteorologist: KEMAR ABEBE ([id number])[facility] (SBHLAB)[address] Basic metabolic 1998 panelon 11-12-2024 Anion gap [Moles/Vol] 10 mmol/L 3 - 13 mmol/L [facility] Calcium [Mass/Vol] 8.7 mg/dL 8.4 - 10. 2 mg/dL [facility] Chloride [Moles/Vol] 105 mmol/L 98 - 10 7 mmol/L [facility] CO2 [Moles/Vol] 26 mmol/L 22 - 29 mmol/L [facility] Creatinine [Mass/Vol] 1.01 mg/dL [facility] GFR/1.73 sq M.predicted (S/P/Bld) [Vol rate/Area] 64.7 mL/min - PINF [facility] Comment on above: Calculation based on the Chronic Kidney Disease Epidemiology Collaboration (CKD-EPI) equation refit without adjustment for race Glucose [Mass/Vol] 87 mg/dL 74 - 100 mg/dL [facility] Potassium [Moles/Vol] 3.9 mmol/L 3.5 - 5.1 mmol/L [facility] Comment on above: Plasma potassium helen ues may be up to 0.5 mmol/L lower than serum values. Sodium [Moles/Vol] 141 mmol/L 136 - 145 mmol/L [facility] Urea nitrogen [Mass/Vol] 18 mg/dL 9 - 23 mg/dL [facility] CBC (HEMOGRAM)on 11-12-2024 Erythrocyte distribution width (RBC) [Ratio] 14.8 % Normal 11.5-15.0 [facility] Comment on above: Performed By: #### L AB294 ####Chief Meteorologist: KEMAR ABEBE ([id number])[facility] ([facility])[address] [place] [address] Hematocrit (Bld) [Volume fraction] 37.7 % Normal Male: 40.0-52.0 ; Female: 35.0-47.0 [facility] Comment on above: Performed By: #### L AB294 ####Chief Meteorologist: KEMAR ABEBE ([id number])[facility] (SBAB)[address] [place] [address] Hemoglobin (Bld) [Mass/Vol] 12.0 g/dL Normal 11.7-18.0 [facility] Comment on above: Performed By: #### L AB294 ####Chief Meteorologist: KEMAR ABEBE ([id number])[facility]ITALWar[facility]OSPITALJermaine (SBHLAB)[address] MCH (RBC) [Entitic mass] 27.2 pg Normal 26.0-34.0 [facility] Comment on above: Performed By: #### L AB294 ####Chief Meteorologist: KEMAR ABEBE ([id number])[facility] (SBHLAB)[address] MCHC 31.8 % Normal 30.5-36.0 [facility] Comment on above: Performed By: #### L AB294 ####Chief Meteorologist: KEMAR LUDWIGSAAD ([id number])[facility]ITALWar[facility] [place] (SBHLAB)[address] [place] [address] MCV (RBC) [Entitic vol] 85.5 fL Normal 77.0-99.0 [facility] Comment on above: Performed By: #### L AB294 ####Chief Meteorologist: KEMAR ABEBE ([id number])[facility] (SBHLAB)[address] Platelet mean volume (Bld) [Entitic vol] 9.2 fL Normal 9.0-12.7 [facility] Comment on above: Performed By: #### L AB294 ####Chief Meteorologist: KEMAR ABEBE ([id number])[facility] (SBHLAB)[address] Platelets (Bld) [#/Vol] 391 10*3/uL Normal 140-440 [facility] Comment on above: Performed By: #### L AB294 ####Chief Meteorologist: KEMAR ABEBE ([id number])[facility] (SBHLAB)[address] RBC (Bld) [#/Vol] 4.41 10*6/uL Normal Male: 4.40-5.90; Female: 3.80-5.20 [facility] Comment on above: Performed By: #### L AB294 ####Chief Meteorologist: KEMAR ABEBE ([id number])[facility] (SBHLAB)[address] WBC (Bld) [#/Vol] 8.6 10*3/uL Normal 3.6-10.7 [facility] Comment on above: Performed By: #### L AB294 ####Chief Meteorologist: KEMAR LUDWIGSAAD ([id number])[facility] (SBHLAB)[address] [place] [address] CBC panel Auto (Bld)on 11-12 Erythrocyte distribution width (RBC) [Ratio] 14.8 % 11.5 - 15.0 % [facility] Hematocrit (Bld) [Volume fraction] 37.7 % Male: 40.0-52.0 ; Female: 35.0-47.0 [facility] Hemoglobin (Bld) [Mass/Vol] 12 g/dL 11.7 - 18.0 g/dL [facility] MCH (RBC) [Entitic mass] 27.2 pg 26.0 - 34.0 pg [facility] MCHC (RBC) [Mass/Vol] 31.8 % 30.5 - 36.0 % [facility] MCV (RBC) [Entitic vol] 85.5 fL 77.0 - 99.0 fL [facility] Platelet mean volume (Bld) [Entitic vol] 9.2 fL 9.0 - 12.7 fL [facility] Platelets (Bld) [#/Vol] 391 10*3/uL 140 - 440 10*3/uL [facility] RBC (Bld) [#/Vol] 4.41 10*6/uL Male: 4.40-5.90; Female: 3.80-5.20 [facility] WBC (Bld) [#/Vol] 8.6 10*3/uL 3.6 - 10.7 10*3/uL [facility] CT ABDOMEN PELVIS WO IV CONT RASTon 11-12-2024 CT ABDOMEN PELVIS WO IV CONTRAST Normal [facility] CT Abdomen and Pelvis WO con traston 11-12-2024 1. Decompressed gallbladder, with apparent cholelithiasis. 2. 9 mm nodular density right middle lobe not appreciably changed. 3. No other acute findings. Report Dictated on Electronically Signed By: Joel Haddad MD Electronically Signed Date/Time: 11/12/2024 11:13 PM EST [facility] [employer] Patient Name: WILL ALVARADO : 1965 Exam Date/Time: 11/12/2024 22:41 Procedure: CT ABDOMEN PELVIS WO IV CONTRAST Ordering Provider: APODACA DANIEL Reason For Exam: drain tube pulled out from USG ton tube, abdominal pain CT ABDOMEN AND PELVIS WITHOUT CONTRAST CLINICAL INDICATION: drain tube pulled out from USG ton tube, abdominal pain TECHNIQUE: CT scan of the abdomen and pelvis, without IV contrast. Multiplanar reformations. Dose reduction was employed with automated exposure control. COMPARISON: CTA chest, June, CT abdomen and pelvis, October,. FINDINGS: Abdomen: Examination is somewhat limited due to patient's body habitus and lack of IV contrast. Visualized lung bases again show nodular density right middle lobe measuring approximately 9 mm (8 mm previously). Mild bibasilar atelectasis. Gallbladder decompressed with apparent gallstones. No significant pericholecystic fluid. Liver grossly unremarkable. Spleen grossly unremarkable. Pancreas grossly unremarkable. Kidneys grossly unremarkable. Adrenal glands grossly unremarkable. Pelvis: Decreased gastric distention from comparison. Remainder of bowel grossly unremarkable. Moderate-large fecal residual. Probable diminutive appendix partially visualized and grossly unremarkable. No significant, free peritoneal fluid or loculated fluid collection. Abdominal aorta is nonaneurysmal. Diffuse degenerative change in the thoracic and lumbar spine. Bulging anterior peritoneal margin may be secondary to body habitus versus diastases-type ventral hernia, unchanged. [facility] Joel Haddad MD - 11/12/2024 Patient Name: WILL JACINTO : 1965 Exam Date/Time: 11/12/2024 22:41 Procedure: CT ABDOMEN PELVIS WO IV CONTRAST Ordering Provider: APODACA DANIEL Reason For Exam: drain tube pulled out from USG ton tube, abdominal pain CT ABDOMEN AND PELVIS WITHOUT CONTRAST CLINICAL INDICATION: drain tube pulled out from USG ton tube, abdominal pain TECHNIQUE: CT scan of the abdomen and pelvis, without IV contrast. Multiplanar reformations. Dose reduction was employed with automated exposure control. COMPARISON: CTA chest, June, CT abdomen and pelvis, October,. FINDINGS: Abdomen: Examination is somewhat limited due to patient's body habitus and lack of IV contrast. Visualized lung bases again show nodular density right middle lobe measuring approximately 9 mm (8 mm previously). Mild bibasilar atelectasis. Gallbladder decompressed with apparent gallstones. No significant pericholecystic fluid. Liver grossly unremarkable. Spleen grossly unremarkable. Pancreas grossly unremarkable. Kidneys grossly unremarkable. Adrenal glands grossly unremarkable. Pelvis: Decreased gastric distention from comparison. Remainder of bowel grossly unremarkable. Moderate-large fecal residual. Probable diminutive appendix partially visualized and grossly unremarkable. No significant, free peritoneal fluid or loculated fluid collection. Abdominal aorta is nonaneurysmal. Diffuse degenerative change in the thoracic and lumbar spine. Bulging anterior peritoneal margin may be secondary to body habitus versus diastases-type ventral hernia, unchanged. IMPRESSION: 1. Decompressed gallbladder, with apparent cholelithiasis. 2. 9 mm nodular density right middle lobe not appreciably changed. 3. No other acute findings. Report Dictated on Electronically Signed By: Joel Haddad MD Electronically Signed Date/Time: 11/12/2024 11:13 PM EST [facility] Radiology Study observation (narrative) [facility] CT Abdomen and Pelvis WO con trastOrdered By: Joel Haddad on 11-12-2024 [facility] [employer] Work Phone: ED Provider Noteon ED Provider Note Normal [facility] HEPATIC FUNCTION PANELon Albumin [Mass/Vol] 3.3 g/dL Low 3.5-5.0 [facility] Comment on above: Performed By: #### L AB15, LAB20, LAB99 ####Chief Meteorologist: KEMAR ABEBE ([id number])[facility]ITALWar[facility] [place] (SBHLAB)[address] ALP [Catalytic activity/Vol] 143 U/L Normal [facility] Comment on above: Performed By: #### L AB15, LAB20, LAB99 ####Chief Meteorologist: KEMAR ABEBE ([id number])[facility]ITALA BARBCARLS[facility]ERN (SBHLAB)[address] ALT [Catalytic activity/Vol] 65 U/L Normal [facility] Comment on above: Performed By: #### L AB15, LAB20, LAB99 ####Chief Meteorologist: KEMAR ABEBE ([id number])[facility]ITALA [place] (SBHLAB)[address] AST [Catalytic activity/Vol] 42 U/L High <34 [facility] Comment on above: Performed By: #### L AB15, LAB20, LAB99 ####Chief Meteorologist: KEMAR ABEBE ([id number])[facility] (SBHLAB)[address] Bilirubin [Mass/Vol] 0.4 mg/dL Normal <1.2 [facility] Comment on above: Performed By: #### L AB15, LAB20, LAB99 ####Chief Meteorologist: KEMAR ABEBE ([id number])[facility] (SBHLAB)[address] Bilirubin.indirect [Mass/Vol] 0.2 mg/dL Normal <0.5 [facility] Comment on above: Performed By: #### L AB15, LAB20, LAB99 ####Chief Meteorologist: KEMAR ABEBE ([id number])[facility] (SBHLAB)[address] Protein [Mass/Vol] 6.8 g/dL Normal 6.4-8.3 [facility] Comment on above: Result Comment: Seru m protein values are higher than plasma values. Samples from recumbent persons are lower by up to 0.5 g/dL as compared to ambulatory persons. After 60 years values are lower by up to 0.2 g/dL. Performed By: #### L AB15, LAB20, LAB99 ####Chief Meteorologist: KEMAR ABEBE ([id number])[facility] ([facility])[address] [place] [address] Hepatic function 2000 panelo n 11-12-2024 Albumin [Mass/Vol] 3.3 g/dL Low 3.5 - 5.0 g/dL [facility] ALP [Catalytic activity/Vol] 143 U/L [facility] ALT [Catalytic activity/Vol] 65 U/L [facility] AST [Catalytic activity/Vol] 42 U/L High NINF - 34 U/L [facility] Bilirubin [Mass/Vol] 0.4 mg/dL NINF - 1.2 mg/dL [facility] Bilirubin.conjugated [Mass/Vol] 0.2 mg/dL [facility] - 0.5 mg/dL [facility] Interpretation and review of laboratory results Abnormal [facility] Protein [Mass/Vol] 6.8 g/dL 6.4 - 8.3 g/dL [facility] Comment on above: Serum protein values are higher than plasma values. Samples from recumbent persons are lower by up to 0.5 g/dL as compared to ambulatory persons. After 60 years values are lower by up to 0.2 g/dL. LIPASEon 11-12-2024 Lipase [Catalytic activity/Vol] 26 U/L Normal <55 [facility] Comment on above: Performed By: #### L AB15, LAB20, LAB99 ####Chief Meteorologist: KEMAR ABEBE ([id number])[facility] ([facility])[address] [place] [address] Laboratory - Chemistry and C hemistry - challengeon 11-12-2024 Lipase [Catalytic activity/Vol] 26 U/L NINF - 55 U/L [facility] Lipase [Catalytic activity/V ol]on 11-12-2024 Interpretation and review of laboratory results Normal [facility] No Panel Informationon 11-12 [facility] Urine Cultureon 11-11-2024 [facility]RC UNKNOWN METHOD OF COLLECTION Mixed Gram Pos Gram Neg Org [place] Count 11,000-25,000 MIX[facility] Mixed contaminants. Submit a new specimen if indicated. Normal [facility] Comment on above: Performed By: #### L 100.0500, L500.4050 #### [facility] [address] [place], [address] Bilirubin Test strip Ql (U)O rdered By: Jared Guzman on 11-10-2024 Bilirubin Ql (U) Negative Negative [facility] Epithelial cells.squamous LM Ql (Urine sed)Ordered By: Jared Guzman on 11-10-2024 Epithelial cells.squamous LM.HPF (Urine sed) [#/Area] 0 /[HPF] 5-10 [facility] Glucose Ql (U)Ordered By: Marcel Piper on 11-10-2024 Urine Glucose (UA) Normal mg/dl Normal [facility] Ketones Test strip Ql (U)Ord ered By: Jared Guzman on 11-10-2024 Ketones Ql (U) Negative Negative [facility] Microscopic analysis of urin e for red blood cells (RBC)Ordered By: Jared Guzman on 11-10-2024 Urine RBC 10-25 SEEN /hpf 0-5 [facility] Mucus LM Ql (Urine sed)Order ed By: Jared Guzman on 11-10-2024 Mucus Ql (Urine sed) 0 SEEN /hpf [facility] Nitrite Test strip Ql (U)Ord ered By: Jared Guzman on 11-10-2024 Nitrite Ql (U) Negative Negative [facility] Progress Noteon 11-10-2024 Progress Note Normal [facility] Protein Test strip Ql (U)Ord ered By: Jared Guzman on 11-10-2024 Protein Ql (U) 500 mg/dl High Negative [facility] Urinalysis, Completeon 11-10 EPI,SQUAMOUS 0-5 SEEN Normal 5-10 [facility] Comment on above: Order Comment: 103.1 Performed By: #### L 100.0500, L500.4050 #### [facility] [address] [place], [address] RBC 10-25 SEEN Normal 0-5 [facility] Comment on above: Order Comment: 103.1 Performed By: #### L 100.0500, L500.4050 #### [facility] [address] [place], [address] BACTERIA 3+ /hpf Normal None Seen [facility] Comment on above: Order Comment: 103.1 Performed By: #### L 100.0500, L500.4050 #### [facility] [address] [place], [address] WBC 10-25 SEEN Normal 0-5 [facility] Comment on above: Order Comment: 103.1 Performed By: #### L 100.0500, L500.4050 #### [facility] [address] [place], [address] Mucus Ql (Urine sed) 0 SEEN Normal [facility] Comment on above: Order Comment: 103.1 Performed By: #### L 100.0500, L500.4050 #### [facility] [address] [place], [address] Urine blood detectionOrdered By: Jared Guzman on 11-10-2024 Urine Occult Blood 250 /ul High Negative [facility] Urine clarityOrdered By: Mike Guzman on 11-10-2024 Clarity (U) Cloudy Clear [facility] Urine color determinationOrd ered By: Jared Guzman on 11-10-2024 Color (U) Yellow Yellow [facility] Urine cultureOrdered By: Mike Guzman on 11-10-2024 Bacteria identified Cx Nom (U) Mixed Gram Pos & Gram Neg Org Abnormal [facility] Bacteria identified Cx Nom (U) Mixed Gram Pos & Gram Neg Org Abnormal [facility] Urine leukocyte esterase det ection by dipstickOrdered By: Jared Guzman on 11-10-2024 Leukocyte esterase Test strip Ql (U) 100 /ul High Negative [facility] Urine pHOrdered By: Jared moreno on 11-10-2024 pH (U) 6.0 [pH] 5.0 - 8.0 [facility] Urine sediment bacteria coun t by microscopy (number/high power field)Ordered By: Jared Guzman on 11-10-2024 Bacteria LM.HPF (Urine sed) [#/Area] 3 /[HPF] None Seen [facility] Urine specific gravity measu rementOrdered By: Jared Guzman on 11-10-2024 Specific gravity (U) [Rel density] 1.025 1.002-1.030 [facility] Urobilinogen Ql (U)Ordered B y: Jared Guzman on 11-10-2024 Urine Urobilinogen Normal mg/dl Normal [facility] White blood cell countOrdere d By: Jared Guzman on 11-10-2024 Urine WBC 10-25 SEEN /hpf 0-5 [facility] 36on 11-07-2024 36 Released msg to pt's nurse Ninfa. She verbalized understanding Normal [facility] 36 Normal [facility] 36 Patient's BGL Normal [facility] 36on 10-30-2024 36 Released message to nurse [facility] 36 BG log reviewed. No changes to current meds. Send log as needed; otherwise, has appt 11/27 with Ana Maria. Please remind SNF to send BGL and MAR to visit. Thank you! Normal [facility] 36 Patient's BGL Normal [facility] Albumin to globulin ratioOrd ered By: Jared Guzman on 10-30-2024 Albumin/Globulin [Mass ratio] 0.8 {ratio} Low 0.9-2.4 [facility] Bilirubin, totalOrdered By: Jared Guzman on 10-30-2024 Bilirubin [Mass/Vol] 0.40 mg/dL 0.20-1.00 [facility] Comment on above: For patients on eltr ombopag therapy, use of [place] TBIL is not recommended. Blood urea nitrogen (BUN)/cr eatinine ratioOrdered By: Jared Guzman on 10-30-2024 Urea nitrogen/Creatinine [Mass ratio] 20.3 mg/mg High 10- [facility] CBC-Complete Blood Cnt No Di ffon 10-30-2024 Erythrocyte distribution width (RBC) [Ratio] 14.8 % High 11.6-14.6 [facility] Comment on above: Order Comment: 103.1 Performed By: #### L 100.0500, L500.4050 #### [facility] [address] [place], [address] Hematocrit (Bld) [Volume fraction] 32.9 % Low 37-47 [facility] Comment on above: Order Comment: 103.1 Performed By: #### L 100.0500, L500.4050 #### [facility] [address] [place], [address] Hemoglobin (Bld) [Mass/Vol] 10.2 g/dL Low 12.0-15.0 [facility] Comment on above: Order Comment: 103.1 Performed By: #### L 100.0500, L500.4050 #### [facility] [address] [place], [address] MCH (RBC) [Entitic mass] 27.1 pg Normal 27.0-32.0 [facility] Comment on above: Order Comment: 103.1 Performed By: #### L 100.0500, L500.4050 #### [facility] [address] [place], [address] MCHC (RBC) [Mass/Vol] 31.0 g/dL Low 32-[address] [facility] Comment on above: Order Comment: 103.1 Performed By: #### L 100.0500, L500.4050 #### [facility] [address] [place], [address] MCV (RBC) [Entitic vol] 87.3 fL Normal 81-99 [facility] Comment on above: Order Comment: 103.1 Performed By: #### L 100.0500, L500.4050 #### [facility] [address] [place], [address] Platelet mean volume (Bld) [Entitic vol] 9.7 fL Normal 6.2-12.0 [facility] Comment on above: Order Comment: 103.1 Performed By: #### L 100.0500, L500.4050 #### [facility] [address] [place], [address] Platelets (Bld) [#/Vol] 387 10*3/uL Normal 150-450 [facility] Comment on above: Order Comment: 103.1 Performed By: #### L 100.0500, L500.4050 #### [facility] [address] [place], [address] RBC (Bld) [#/Vol] 3.77 10*6/uL Low 4.2-5.4 [facility] Comment on above: Order Comment: 103.1 Performed By: #### L 100.0500, L500.4050 #### [facility] [address] [place], [address] RDW SD 46.8 fl High 35.1-43.9 [facility] Comment on above: Order Comment: 103.1 Performed By: #### L 100.0500, L500.4050 #### [facility] [address] [place], [address] WBC (Bld) [#/Vol] 9.0 10*3/uL Normal 4.4-11.0 [facility] Comment on above: Order Comment: 103.1 Performed By: #### L 100.0500, L500.4050 #### [facility] [address] [place], [address] Carbon dioxide measurementOr dered By: Jared Guzman on 10-30-2024 CO2 [Moles/Vol] 26.0 mmol/L 21.0-32.0 [facility] Chloride measurementOrdered By: Jared Guzman on 10-30-2024 Chloride [Moles/Vol] 108 mmol/L High 98-107 [facility] Comprehensive Metabolic Prof ilon 10-30-2024 Albumin [Mass/Vol] 2.8 g/dL Low 3.2-5.0 [facility] Comment on above: Order Comment: 103.1 Performed By: #### L 100.0500, L500.4050 #### [facility] [address] [place], [address] Albumin/Globulin [Mass ratio] 0.8 {ratio} Low 0.9-2.4 [facility] Comment on above: Order Comment: 103.1 Performed By: #### L 100.0500, L500.4050 #### [facility] [address] [place], [address] ALK P 113 U/L Normal 45-117 [facility] Comment on above: Order Comment: 103.1 Performed By: #### L 100.0500, L500.4050 #### [facility] [address] [place], [address] ALT [Catalytic activity/Vol] 25 U/L Normal 13-56 [facility] Comment on above: Order Comment: 103.1 Performed By: #### L 100.0500, L500.4050 #### [facility] [address] [place], [address] AST [Catalytic activity/Vol] 18 U/L Normal 15-37 [facility] Comment on above: Order Comment: 103.1 Performed By: #### L 100.0500, L500.4050 #### [facility] [address] [place], [address] Bilirubin [Mass/Vol] 0.40 mg/dL Normal 0.20-1.00 [facility] Comment on above: Order Comment: 103.1 Result Comment: For patients on eltrombopag therapy, use of Dimension [place] TBIL is not recommended. Performed By: #### L 100.0500, L500.4050 #### [facility] [address] [place], [address] BUN/CRE 20.3 RATIO High 10-20 [facility] Comment on above: Order Comment: 103.1 Performed By: #### L 100.0500, L500.4050 #### [facility] [address] [place], [address] CA,Total 8.8 mg/dL Normal 8.5-10.1 [facility] Comment on above: Order Comment: 103.1 Performed By: #### L 100.0500, L500.4050 #### [facility] [address] [place], [address] Chloride [Moles/Vol] 108 mmol/L High 98-107 [facility] Comment on above: Order Comment: 103.1 Performed By: #### L 100.0500, L500.4050 #### [facility] [address] [place], [address] CO2 [Moles/Vol] 26.0 mmol/L Normal 21.0-32.0 [facility] Comment on above: Order Comment: 103.1 Performed By: #### L 100.0500, L500.4050 #### [facility] [address] [place], [address] Creatinine [Mass/Vol] 0.69 mg/dL Normal 0.55-1.[address] [facility] Comment on above: Order Comment: 103.1 Result Comment: The validity of the calculated GFR GFRAA in patients over 70 years has not been determined. Clinical correlation is essential. Performed By: #### L 100.0500, L500.4050 #### [facility] [address] [place], [address] EST GFR - AA 112 mL/min Normal >60 [facility] Comment on above: Order Comment: 103.1 Result Comment: Afri can [place] GFR Calc Performed By: #### L 100.0500, L500.4050 #### [facility] [address] [place], [address] GAP 5 Normal 5-15 [facility] Comment on above: Order Comment: 103.1 Performed By: #### L 100.0500, L500.4050 #### [facility] [address] [place], [address] GFR/1.73 sq M.predicted among non-blacks MDRD (S/P/Bld) [Vol rate/Area] 93 mL/min/{1.73_m2} Normal >60 [facility] Comment on above: Order Comment: 103.1 Result Comment: Non- GFR Calc Performed By: #### L 100.0500, L500.4050 #### [facility] [address] [place], [address] Globulin (S) [Mass/Vol] 3.7 g/dL Normal 2.2-4.2 [facility] Comment on above: Order Comment: 103.1 Performed By: #### L 100.0500, L500.4050 #### [facility] [address] [place], [address] Glucose [Mass/Vol] 105 mg/dL Normal 74-106 [facility] Comment on above: Order Comment: 103.1 Result Comment: Fast ing Glucose result from 100 to 125 mg/dL suggests IMPAIRED HOMEOSTASIS per A.D.A. criteria. Performed By: #### L 100.0500, L500.4050 #### [facility] [address] [place], [address] Potassium [Moles/Vol] 4.4 mmol/L Normal 3.5-5.[address] [facility] Comment on above: Order Comment: 103.1 Performed By: #### L 100.0500, L500.4050 #### [facility] [address] [place], [address] Sodium [Moles/Vol] 139 mmol/L Normal 136-145 [facility] Comment on above: Order Comment: 103.1 Performed By: #### L 100.0500, L500.4050 #### [facility] [address] [place], [address] T PROT 6.5 g/dL Normal 6.4-8.2 [facility] Comment on above: Order Comment: 103.1 Performed By: #### L 100.0500, L500.4050 #### [facility] [address] [place], [address] Urea nitrogen [Mass/Vol] 14 mg/dL Normal 7-18 [facility] Comment on above: Order Comment: 103.1 Performed By: #### L 100.0500, L500.4050 #### [facility] [address] [place], [address] Erythrocyte distribution wid th ratioOrdered By: Jared Guzman on 10-30-2024 Erythrocyte distribution width (RBC) [Ratio] 14.8 % High 11.6-14.6 [facility] Erythrocyte distribution wid th standard deviationOrdered By: Jared Guzman on 10-30-2024 Erythrocyte distribution width (RBC) [Entitic vol] 46.8 fL High 35.1-43.9 [facility] Estimated glomerular filtrat ion rate (GFR) AmericanOrdered By: Jared Guzman on 10-30-2024 Estimated GFR (MDRD) Amer 112 mL/min >60 [facility] Comment on above: GFR Calc Glomerular filtration rate ( GFR) estimationOrdered By: Jared Guzman on 10-30-2024 Estimated GFR (MDRD) Non-Af Amer 93 mL/min >60 [facility] Comment on above: Non- GFR Calc Glucose measurementOrdered B y: Jared Guzman on 10-30-2024 Glucose [Mass/Vol] 105 mg/dL 74-106 [facility] Comment on above: Fasting Glucose resu lt from 100 to 125 mg/dL suggests IMPAIRED HOMEOSTASIS per A.D.A. criteria. Hematocrit Auto (Bld) [Volum e fraction]Ordered By: Jared Guzman on 10-30-2024 Hematocrit (Bld) [Volume fraction] 32.9 % Low 37-47 [facility] Hemoglobin measurementOrdere d By: Jared Guzman on 10-30-2024 Hemoglobin (Bld) [Mass/Vol] 10.2 g/dL Low 12.0-15.0 [facility] - Chemistry and C hemistry - challengeOrdered By: Jared Guzman on 10-30-2024 AST [Catalytic activity/Vol] 18 U/L 15-37 [facility] MCV (mean corpuscular volume ) determinationOrdered By: Jared Guzman on 10-30-2024 MCV (RBC) [Entitic vol] 87.3 fL 81-99 [facility] Mean corpuscular hemoglobin (MCH) determinationOrdered By: Jared Guzman on 10-30-2024 MCH (RBC) [Entitic mass] 27.1 pg 27.0-32.0 [facility] Mean corpuscular hemoglobin concentration (MCHC) determinationOrdered By: Jared Guzman on 10-30-2024 MCHC (RBC) [Mass/Vol] 31.0 g/dL Low 32-[address] [facility] Mean platelet volume determi nationOrdered By: Jared Guzman on 10-30-2024 Platelet mean volume (Bld) [Entitic vol] 9.7 fL 6.2-12.0 [facility] Platelet countOrdered By: Marcel Piper on 10-30-2024 Platelets (Bld) [#/Vol] 387 10*3/uL 150-450 [facility] Potassium measurementOrdered By: Jared Guzman on 10-30-2024 Potassium [Moles/Vol] 4.4 mmol/L 3.5-5.[address] [facility] RBC Auto (Bld) [#/Vol]Ordere d By: Jared Guzman on 10-30-2024 RBC (Bld) [#/Vol] 3.77 10*6/uL Low 4.2-5.4 [facility] Serum anion gap measurementO rdered By: Jared Guzman on 10-30-2024 Anion gap [Moles/Vol] 5 mmol/L 5-[address] [facility] Serum globulin measurementOr dered By: Jared Guzman on 10-30-2024 Globulin (S) [Mass/Vol] 3.7 g/dL 2.2-4.2 [facility] Serum or plasma alanine jones otransferase (ALT) measurementOrdered By: Jared Guzman on 10-30-2024 ALT [Catalytic activity/Vol] 25 U/L 13-56 [facility] Serum or plasma albumin mauricio urement (mass/volume)Ordered By: Jared Guzman on 10-30-2024 Albumin [Mass/Vol] 2.8 g/dL Low 3.2-5.0 [facility] Serum or plasma alkaline abbey sphatase measurementOrdered By: Jared Guzman on 10-30-2024 ALP [Catalytic activity/Vol] 113 U/L 45-117 [facility] Serum or plasma calcium mauricio urement (mass/volume)Ordered By: Jared Guzman on 10-30-2024 Calcium [Mass/Vol] 8.8 mg/dL 8.5-10.1 [facility] Serum or plasma creatinine m easurement (mass/volume)Ordered By: Jared Guzman on 10-30-2024 Creatinine [Mass/Vol] 0.69 mg/dL 0.55-1.[address] [facility] Comment on above: The validity of the calculated GFR & GFRAA in patients over 70 years has not been determined. Clinical correlation is essential. Serum or plasma urea nitroge n measurement (mass/volume)Ordered By: Jared Guzman on 10-30-2024 Urea nitrogen [Mass/Vol] 14 mg/dL -18 [facility] Sodium levelOrdered By: Main Guzman on 10-30-2024 Sodium [Moles/Vol] 139 mmol/L 136-145 [facility] Total proteinOrdered By: Mike Guzman on 10-30-2024 Protein [Mass/Vol] 6.5 g/dL 6.4-8.2 [facility] White blood cell (WBC) count Ordered By: Jared Guzman on 10-30-2024 WBC (Bld) [#/Vol] 9.0 10*3/uL 4.4-11.0 [facility] ECG 12-LEADon 2024 ECG 12-LEAD IMPRESSION: Sinus rhythm Left bundle branch block Compared to ECG 10/18/24 No significant change Electronically Signed On 2024 00:25:40 EST by Fermin Melchor [facility] 36on 10-24-2024 36 Shayy called back w e scheduled an appointment with Ana Maria on 11/27/24 and another one on 03/27/25 with Thalia. Normal [facility] 36 Normal [facility] CBC (HEMOGRAM)on 10-24-2024 Erythrocyte distribution width (RBC) [Ratio] 13.8 % Normal 11.5-15.0 [facility] Comment on above: Performed By: #### L [id number] ####Chief Meteorologist: KEMAR ABEBE ([id number])[facility] ([facility])[address] [place] [address] Hematocrit (Bld) [Volume fraction] 39.3 % Normal Male: 40.0-52.0 ; Female: 35.0-47.0 [facility] Comment on above: Performed By: #### L [id number] ####Chief Meteorologist: KEMAR ABEBE ([phone])[facility] ([facility])[address] [place] [address] Hemoglobin (Bld) [Mass/Vol] 12.3 g/dL Normal 11.7-18.0 [facility] Comment on above: Performed By: #### L [id number] ####Chief Meteorologist: KEMAR ABEBE ([id number])[facility] ([facility])[address] [place] [address] MCH (RBC) [Entitic mass] 27.0 pg Normal 26.0-34.0 [facility] Comment on above: Performed By: #### L [id number] ####Chief Meteorologist: KEMAR ABEBE ([id number])[facility] ([facility])[address] [place] [address] MCHC 31.3 % Normal 30.5-36.0 [facility] Comment on above: Performed By: #### L [id number] ####Chief Meteorologist: KEMAR ABEBE ([id number])[facility] ([facility])[address] MCV (RBC) [Entitic vol] 86.2 fL Normal 77.0-99.0 [facility] Comment on above: Performed By: #### L [id number] ####Chief Meteorologist: KEMAR ABEBE ([phone])[facility] ([facility])[address] Platelet mean volume (Bld) [Entitic vol] 9.7 fL Normal 9.0-12.7 [facility] Comment on above: Performed By: #### L [id number] ####Chief Meteorologist: KEMAR ABEBE ([id number])[facility] ([facility])[address] Platelets (Bld) [#/Vol] 465 10*3/uL High 140-440 [facility] Comment on above: Performed By: #### L [id number] ####Chief Meteorologist: KEMAR ABEBE ([phone])[facility] ([facility])[address] [place] [address] RBC (Bld) [#/Vol] 4.56 10*6/uL Normal Male: 4.40-5.90; Female: 3.80-5.20 [facility] Comment on above: Performed By: #### L [id number] ####Chief Meteorologist: KEMAR ABEBE ([id number])[facility] ([facility])[address] [place] [address] WBC (Bld) [#/Vol] 9.8 10*3/uL Normal 3.6-10.7 [facility] Comment on above: Performed By: #### L [id number] ####Chief Meteorologist: KEMAR ABEBE ([phone])[facility] ([facility])[address] [place] [address] CBC panel Auto (Bld)Ordered By: Justin Mao on 10-24-2024 Erythrocyte distribution width (RBC) [Ratio] 13.8 % 11.5 - 15.0 % [facility] Hematocrit (Bld) [Volume fraction] 39.3 % Male: 40.0-52.0 ; Female: 35.0-47.0 [facility] Hemoglobin (Bld) [Mass/Vol] 12.3 g/dL 11.7 - 18.0 g/dL [facility] Interpretation and review of laboratory results Abnormal [facility] MCH (RBC) [Entitic mass] 27 pg 26.0 - 34.0 pg [facility] MCHC (RBC) [Mass/Vol] 31.3 % 30.5 - 36.0 % [facility] MCV (RBC) [Entitic vol] 86.2 fL 77.0 - 99.0 fL [facility] Platelet mean volume (Bld) [Entitic vol] 9.7 fL 9.0 - 12.7 fL [facility] Platelets (Bld) [#/Vol] 465 10*3/uL High 140 - 440 10*3/uL [facility] RBC (Bld) [#/Vol] 4.56 10*6/uL Male: 4.40-5.90; Female: 3.80-5.20 [facility] WBC (Bld) [#/Vol] 9.8 10*3/uL 3.6 - 10.7 10*3/uL [facility] COMPLETE URINALYSISon 2023 BACTERIA (#/HPF) IN URINE Negative Normal Negative [facility] Comment on above: Performed By: #### L [id number] ####Chief Meteorologist: KEMAR ABEBE ([phone])[facility] ([facility])[address] BILIRUBIN, TOTAL PRESENCE IN URINE Negative Normal Negative [facility] Comment on above: Performed By: #### L [id number] ####Chief Meteorologist: KEMAR ABEBE ([phone])[facility] ([facility])[address] [place] [address] [place] Clarity (U) Clear Normal Clear [facility] Comment on above: Performed By: #### L [id number] ####Chief Meteorologist: KEMAR ABEBE ([id number])[facility] ([facility])[address] [place] [address] [place] Color (U) Light Yellow Normal Lt. Yellow [facility] Comment on above: Performed By: #### L [id number] ####Chief Meteorologist: KEMAR LUDWIGSAAD ([id number])[facility] [place] ([facility])[address] GLUCOSE (MG/DL) IN URINE Normal Normal Normal (<70) [facility] Comment on above: Performed By: #### L [id number] ####Chief Meteorologist: KEMAR ABEBE ([phone])[facility] ([facility])[address] HEMOGLOBIN PRESENCE IN URINE Negative Normal Negative [facility] Comment on above: Performed By: #### L [id number] ####Chief Meteorologist: KEMAR LUDWIGSAAD ([phone])[facility] ([facility])[address] Ketones Ql (U) Negative Normal Negative [facility] Comment on above: Performed By: #### L [id number] ####Chief Meteorologist: KEMAR ABEBE ([phone])[facility] ([facility])[address] LEUKOCYTE ESTERASE PRESENCE IN URINE BY TEST STRIP Negative Normal Negative [facility] Comment on above: Performed By: #### L [id number] ####Chief Meteorologist: KEMAR LUDWIGSAAD ([phone])[facility] ([facility])[address] [place] [address] [place] MUCUS (#/LPF) IN URINE SEDIMENT Few Normal Negative [facility] Comment on above: Performed By: #### L [id number] ####Chief Meteorologist: KEMAR LUDWIGSAAD ([id number])[facility] ([facility])[address] [place] [address] [place] NITRITE PRESENCE IN URINE Negative Normal Negative [facility] Comment on above: Performed By: #### L [id number] ####Chief Meteorologist: KEMAR LUDWIGSAAD ([phone])[facility] ([facility])[address] [place] [address] [place] NON-SQUAMOUS EPITHELIAL (#/HPF) IN URINE 3-5 Abnormal Negative [facility] Comment on above: Performed By: #### L [id number] ####Chief Meteorologist: KEMAR ABEBE ([id number])[facility] ([facility])[address] pH (U) 7.0 [pH] Normal 5.0-8.0 [facility] Comment on above: Performed By: #### L [id number] ####Chief Meteorologist: KEMAR ABEBE ([id number])[facility] ([facility])[address] Protein (U) [Mass/Vol] 70 mg/dL Abnormal Negative [facility] Comment on above: Performed By: #### L [id number] ####Chief Meteorologist: KEMAR ABEBE ([id number])[facility] [place] [address] RBC (#/HPF) IN URINE SEDIMENT 3-5 Abnormal 0-2 [facility] Comment on above: Performed By: #### L [id number] ####Chief Meteorologist: KEMAR ABEBE ([phone])[facility] [place] [address] Specific gravity (U) [Rel density] 1.011 Normal 1.005-1.030 [facility] Comment on above: Performed By: #### L [id number] ####Chief Meteorologist: KEMAR ABEBE ([id number])[facility] (HLAB)[address] SQUAMOUS EPITHELIAL CELLS (#/HPF) IN URINE SEDIMENT 0-2 Normal 3-5 [facility] Comment on above: Performed By: #### L [id number] ####Chief Meteorologist: KEMAR ABEBE ([id number])[facility] [place] [address] UROBILINOGEN (MG/DL) IN URINE Normal Normal Normal (0-1) [facility] Comment on above: Performed By: #### L [id number] ####Chief Meteorologist: KEMAR ABEBE ([id number])[facility] ([facility])[address] WBC (LEUKOCYTE) (#/HPF) IN URINE SEDIMENT 6-10 Abnormal 0-5 [facility] Comment on above: Performed By: #### L [id number] ####Chief Meteorologist: KEMAR ABEBE ([id number])[facility] [place] ([facility])[address] COMPREHENSIVE METABOLIC PANE Gigi 10-24-2024 Albumin [Mass/Vol] 3.0 g/dL Low 3.5-5.0 [facility] Comment on above: Performed By: #### L [id number], LAB17 ####Chief Meteorologist: KEMAR ABEBE ([id number])[facility] [place] ([facility])[address] ALP [Catalytic activity/Vol] 117 U/L Normal [facility] Comment on above: Performed By: #### L [id number], LAB17 ####Chief Meteorologist: KEMAR ABEBE ([id number])[facility] [place] ([facility])[address] ALT [Catalytic activity/Vol] 22 U/L Normal [facility] Comment on above: Performed By: #### L [id number], LAB17 ####Chief Meteorologist: KEMAR ABEBE ([id number])[facility] [place] ([facility])[address] Anion gap [Moles/Vol] 10 mmol/L Normal 3-13 [facility] Comment on above: Performed By: #### L [id number], LAB17 ####Chief Meteorologist: KEMAR ABEBE ([id number])[facility] [place] ([facility])[address] AST [Catalytic activity/Vol] 28 U/L Normal <34 [facility] Comment on above: Performed By: #### L [id number], LAB17 ####Chief Meteorologist: KEMAR ABEBE ([id number])[facility] [place] ([facility])[address] Bilirubin [Mass/Vol] 0.4 mg/dL Normal <1.2 [facility] Comment on above: Performed By: #### L [id number], [id number] ####Chief Meteorologist: KEMAR ABEBE ([id number])[facility] ([facility])[address] Calcium [Mass/Vol] 9.3 mg/dL Normal 8.4-10.2 [facility] Comment on above: Performed By: #### L [id number], LAB17 ####Chief Meteorologist: KEMAR ABEBE ([id number])[facility] [place] ([facility])[address] Chloride [Moles/Vol] 100 mmol/L Normal 98-107 [facility] Comment on above: Performed By: #### L [id number], LAB17 ####Chief Meteorologist: KEMAR ABEBE ([id number])[facility] ([facility])[address] CO2 [Moles/Vol] 27 mmol/L Normal 22-29 [facility] Comment on above: Performed By: #### L [id number], LAB17 ####Chief Meteorologist: KEMAR ABEBE ([id number])[facility] ([facility])[address] Creatinine [Mass/Vol] 0.84 mg/dL Normal [facility] Comment on above: Performed By: #### L [id number], LAB17 ####Chief Meteorologist: KEMAR ABEBE ([id number])[facility] ([facility])[address] GLOMERULAR FILTRATION RATE ML/MIN/1.73 SQ M.PREDICTED 81.2 mL/min/1.73m*2 Normal >60.0 [facility] Comment on above: Result Comment: Calc ulation based on the Chronic Kidney Disease Epidemiology Collaboration (CKD-EPI) equation refit without adjustment for race Performed By: #### L [id number], LAB17 ####Chief Meteorologist: KEMAR ABEBE ([id number])[facility] ([facility])[address] Glucose [Mass/Vol] 207 mg/dL High 74-100 [facility] Comment on above: Performed By: #### L [id number], LAB17 ####Chief Meteorologist: KEMAR ABEBE ([id number])[facility] ([facility])[address] Potassium [Moles/Vol] 4.6 mmol/L Normal 3.5-5.1 [facility] Comment on above: Result Comment: [facility] potassium values may be up to 0.5 mmol/L lower than serum values. Performed By: #### L [id number], LAB17 ####Chief Meteorologist: KEMAR ABEBE ([id number])[facility] ([facility])[address] Protein [Mass/Vol] 7.0 g/dL Normal 6.4-8.3 [facility] Comment on above: Performed By: #### L [id number], LAB17 ####Chief Meteorologist: KEMAR ABEBE ([id number])[facility] ([facility])[address] [place] [address] [place] Sodium [Moles/Vol] 137 mmol/L Normal 136-145 [facility] Comment on above: Performed By: #### L [id number], LAB17 ####Chief Meteorologist: KEMAR ABEBE ([id number])[facility] ([facility])[address] [place] [address] [place] Urea nitrogen [Mass/Vol] 15 mg/dL Normal 9-23 [facility] Comment on above: Performed By: #### L [id number], LAB17 ####Chief Meteorologist: KEMAR ABEBE ([id number])[facility] ([facility])[address] Comprehensive metabolic 1998 panelOrdered By: Hans Watson on 10-24-2024 Albumin [Mass/Vol] 3 g/dL Low 3.5 - 5.0 g/dL [facility] ALP [Catalytic activity/Vol] 117 U/L [facility] ALT [Catalytic activity/Vol] 22 U/L [facility] Anion gap [Moles/Vol] 10 mmol/L 3 - 13 mmol/L [facility] AST [Catalytic activity/Vol] 28 U/L NINF - 34 U/L [facility] Bilirubin [Mass/Vol] 0.4 mg/dL NINF - 1.2 mg/dL [facility] Calcium [Mass/Vol] 9.3 mg/dL 8.4 - 10. 2 mg/dL [facility] Chloride [Moles/Vol] 100 mmol/L 98 - 10 7 mmol/L [facility] CO2 [Moles/Vol] 27 mmol/L 22 - 29 mmol/L [facility] Creatinine [Mass/Vol] 0.84 mg/dL [facility] GFR/1.73 sq M.predicted (S/P/Bld) [Vol rate/Area] 81.2 mL/min - PINF [facility] Comment on above: Calculation based on the Chronic Kidney Disease Epidemiology Collaboration (CKD-EPI) equation refit without adjustment for race Glucose [Mass/Vol] 207 mg/dL High 74 - 100 mg/dL [facility] Interpretation and review of laboratory results Abnormal [facility] Potassium [Moles/Vol] 4.6 mmol/L 3.5 - 5.1 mmol/L [facility] Comment on above: Plasma potassium helen ues may be up to 0.5 mmol/L lower than serum values. Protein [Mass/Vol] 7 g/dL 6.4 - 8.3 g/dL [facility] Sodium [Moles/Vol] 137 mmol/L 136 - 145 mmol/L [facility] Urea nitrogen [Mass/Vol] 15 mg/dL 9 - 23 mg/dL [facility] ED Nursing Noteon 10-24-2024 ED Nursing Note Pt placed on bedpan, urine sample collected and sent to lab. Normal [facility] ED Nursing Note Pt provided with sandwich and pop, ok per Dr Mixon Normal [facility] ED Nursing Note Normal [facility] ED Nursing Note Pt arrives by Roni Perez MS for blood in urine and change in mental status. Pt has chronic lewis and has blood present. BP elevated, BG 154 (low per SNF because pt is normally in 300 range). Pt is DNR-CCA. Normal [facility] ED Provider Noteon ED Provider Note Normal [facility] HIGH SENSITIVITY TROPONIN, S ERIAL BASELINEon 10-24-2024 TROPONIN HIGH SENSITIVITY BASELINE <3 Normal [facility] Comment on above: Performed By: #### L [id number], [id number] ####Chief Meteorologist: KEMAR ABEBE ([id number])[facility] ([facility])[address] [place] [address] LACTIC ACID WITH REFLEXon Lactate [Moles/Vol] 1.5 mmol/L Normal 0.5-2.2 [facility] Comment on above: Performed By: #### L [id number] ####Chief Meteorologist: KEMAR ABEBE ([id number])[facility] (SBHLAB)[address] [place] [address] Laboratory - Chemistry and C hemistry - challengeon 10-24-2024 Lactate [Moles/Vol] 1.5 mmol/L 0.5 - 2. 2 mmol/L [facility] Glucose [Mass/Vol] 175 mg/dL High 70 - 100 mg/dL [facility] No Panel Informationon 10-24 Troponin HS, Serial Baseline ng/L ng/L [facility] Interpretation and review of laboratory results Normal [facility] Interpretation and review of laboratory results Abnormal [facility] Performed by: [facility], [address] [place] [address] CLIA ID: [id number] [facility] Urinalysis complete panel (U )on 10-24-2024 Bacteria LM.HPF (Urine sed) [#/Area] Negative Negative /HPF [facility] Bilirubin Ql (U) Negative Negative mg/dL [facility] Clarity (U) Clear Clear [facility] Color (U) Light Yellow Lt. Yellow [facility] Epithelial cells.squamous LM.HPF (Urine sed) [#/Area] 0-2 [facility] Glucose Ql (U) Normal Normal (<70) mg/dL [facility] Hemoglobin Ql (U) Negative Negative mg/dL [facility] Interpretation and review of laboratory results Abnormal [facility] Ketones (U) [Mass/Vol] Negative Negat bernard mg/dL [facility] Leukocyte esterase Test strip Ql (U) Negative Negative Kat/uL [facility] Mucus LM.HPF (Urine sed) [#/Area] Few Negative /LPF [facility] Nitrite Ql (U) Negative Negative [facility] Non-Squamous Epithalial Cells, Urine 3-5 Abnormal Negative /HPF [facility] pH (U) 7.0 [pH] 5.0 - 8.0 pH [facility] Protein (U) [Mass/Vol] 70 mg/dL Abnormal Negative [facility] RBC LM.HPF (Urine sed) [#/Area] 3-5 Abnormal [facility] Specific gravity (U) [Rel density] 1.011 1.005 - 1.030 [facility] Urobilinogen (U) [Mass/Vol] Normal Normal (0-1) mg/dL [facility] WBC LM.HPF (Urine sed) [#/Area] 6-10 Abnormal [facility] [id number] 10-23-2024 [id number] Normal [facility] [id number] Discharge med list transmitted to return back to [facility] via [facility] per [facility] request[facility] [id number] Normal [facility] [id number] DC orders in and sig nazario by Dr. Thomas. LIGHT ARMORED VEHICLE OFFICER set up transport. WIRE STITCHER OPERATOR tasked in [facility] to send DC info [facility] . [facility] back [facility] in stable condition. . Normal [facility] CBC W Auto Differential pane l (Bld)on 10-23-2024 Basophils (Bld) [#/Vol] 0.1 10*3/uL 0.0 - 0.2 10*3/uL [facility] Basophils/100 WBC (Bld) 0.7 % 0.0 - 2.0 % [facility] Eosinophils (Bld) [#/Vol] 0.2 10*3/uL 0.0 - 0.5 10*3/uL [facility] Eosinophils/100 WBC (Bld) 2.4 % 0.0 - 6.0 % [facility] Erythrocyte distribution width (RBC) [Ratio] 13.5 % 11.5 - 15.0 % [facility] Hematocrit (Bld) [Volume fraction] 29.9 % Male: 40.0-52.0 ; Female: 35.0-47.0 [facility] Hemoglobin (Bld) [Mass/Vol] 9.5 g/dL Low 11.7 - 18.0 g/dL [facility] Immature granulocytes (Bld) [#/Vol] 0.1 10*3/uL High NINF - 0.1 10*3/uL [facility] Immature granulocytes/100 WBC (Bld) 1.5 % 0.0 - 2.0 % [facility] Interpretation and review of laboratory results Abnormal [facility] Lymphocytes (Bld) [#/Vol] 1.8 10*3/uL 1.0 - 4.3 10*3/uL [facility] Lymphocytes/100 WBC (Bld) 24.6 % 15.0 - 45.0 % [facility] MCH (RBC) [Entitic mass] 27.1 pg 26.0 - 34.0 pg [facility] MCHC (RBC) [Mass/Vol] 31.8 % 30.5 - 36.0 % [facility] MCV (RBC) [Entitic vol] 85.2 fL 77.0 - 99.0 fL [facility] Monocytes (Bld) [#/Vol] 0.8 10*3/uL 0.0 - 0.9 10*3/uL [facility] Monocytes/100 WBC (Bld) 10.6 % 5.0 - 13.0 % [facility] Neutrophils (Bld) [#/Vol] 4.5 10*3/uL 1.8 - 7.5 10*3/uL [facility] Neutrophils/100 WBC (Bld) 60.2 % 38.0 - 82.0 % [facility] Nucleated RBC/100 WBC (Bld) [Ratio] 0 % [facility] Platelet mean volume (Bld) [Entitic vol] 9.6 fL 9.0 - 12.7 fL [facility] Platelets (Bld) [#/Vol] 407 10*3/uL 140 - 440 10*3/uL [facility] RBC (Bld) [#/Vol] 3.51 10*6/uL Male: 4.40-5.90; Female: 3.80-5.20 [facility] WBC (Bld) [#/Vol] 7.5 10*3/uL 3.6 - 10.7 10*3/uL [facility] CBC WITH AUTO DIFFERENTIALon 10-23-2024 Basophils (Bld) [#/Vol] 0.1 10*3/uL Normal 0.0-0.2 [facility] Comment on above: Performed By: #### L [id number] ####Chief Meteorologist: KEMAR ABEBE ([id number])[facility] (SBAB)[address] Basophils/100 WBC (Bld) 0.7 % Normal 0.0-2.0 [facility] Comment on above: Performed By: #### L [id number] ####Chief Meteorologist: KEMAR ABEBE ([id number])[facility] (SBHLAB)[address] Eosinophils (Bld) [#/Vol] 0.2 10*3/uL Normal 0.0-0.5 [facility] Comment on above: Performed By: #### L [id number] ####Chief Meteorologist: KEMAR ABEBE ([id number])[facility] [place] (SBHLAB)[address] Eosinophils/100 WBC (Bld) 2.4 % Normal 0.0-6.0 [facility] Comment on above: Performed By: #### L [id number] ####Chief Meteorologist: KEMAR ABEBE ([id number])[facility] (SBHLAB)[address] Erythrocyte distribution width (RBC) [Ratio] 13.5 % Normal 11.5-15.0 [facility] Comment on above: Performed By: #### L [id number] ####Chief Meteorologist: KEMAR ABEBE ([id number])[facility] (SBHLAB)[address] Hematocrit (Bld) [Volume fraction] 29.9 % Normal Male: 40.0-52.0 ; Female: 35.0-47.0 [facility] Comment on above: Performed By: #### L [id number] ####Chief Meteorologist: KEMAR ANDRAE ([phone])[facility] [place] (SBHLAB)[address] Hemoglobin (Bld) [Mass/Vol] 9.5 g/dL Low 11.7-18.0 [facility] Comment on above: Performed By: #### L [id number] ####Chief Meteorologist: KEMAR MOMINHARRISON ([id number])[facility] [place] (SBAB)[address] [place] [address] IMMATURE GRANS % 1.5 % Normal 0.0-2.0 [facility] Comment on above: Performed By: #### L [id number] ####Chief Meteorologist: KEMAR ANDRAE ([id number])[facility] (SBAB)[address] IMMATURE GRANS ABSOLUTE 0.1 10*3/uL High <0.1 [facility] Comment on above: Performed By: #### L [id number] ####Chief Meteorologist: KEMAR LUDWIGSAAD ([id number])[facility] (SBHLAB)[address] [place] [address] Lymphocytes (Bld) [#/Vol] 1.8 10*3/uL Normal 1.0-4.3 [facility] Comment on above: Performed By: #### L [id number] ####Chief Meteorologist: KEMAR LUDWIGSAAD ([id number])[facility] (SBAB)[address] Lymphocytes/100 WBC (Bld) 24.6 % Normal 15.0-45.0 [facility] Comment on above: Performed By: #### L [id number] ####Chief Meteorologist: KEMAR ABEBE ([id number])[facility] (SBHLAB)[address] MCH (RBC) [Entitic mass] 27.1 pg Normal 26.0-34.0 [facility] Comment on above: Performed By: #### L [id number] ####Chief Meteorologist: KEMAR ABEBE ([id number])[facility] [place] (SBHLAB)[address] MCHC 31.8 % Normal 30.5-36.0 [facility] Comment on above: Performed By: #### L [id number] ####Chief Meteorologist: KEMAR ABEBE ([id number])[facility] KASPERJermaine (SBHLAB)[address] MCV (RBC) [Entitic vol] 85.2 fL Normal 77.0-99.0 [facility] Comment on above: Performed By: #### L [id number] ####Chief Meteorologist: KEMAR ABEBE ([phone])[facility]ITAL[facility] WADEMARYN (SBHLAB)[address] Monocytes (Bld) [#/Vol] 0.8 10*3/uL Normal 0.0-0.9 [facility] Comment on above: Performed By: #### L [id number] ####Chief Meteorologist: KEMAR ABEBE ([id number])[facility] [place] (SBHLAB)[address] Monocytes/100 WBC (Bld) 10.6 % Normal 5.0-13.0 [facility] Comment on above: Performed By: #### L [id number] ####Chief Meteorologist: KEMAR ABEBE ([id number])[facility] BAR[facility]ARYN (SBHLAB)[address] NEUTROPHILS ABSOLUTE 4.5 10*3/uL Normal 1.8-7.5 [facility] Comment on above: Performed By: #### L [id number] ####Chief Meteorologist: KEMAR ABEBE ([id number])NATI BARBMARYN (SBHLAB)[address] Neutrophils/100 WBC (Bld) 60.2 % Normal 38.0-82.0 [facility] Comment on above: Performed By: #### L [id number] ####Chief Meteorologist: KEMAR ABEBE ([phone])[facility] (SBHLAB)[address] NRBC 0.0 /100 WBCs Normal 0.0-2.0 [facility] Comment on above: Performed By: #### L [id number] ####Chief Meteorologist: KEMAR ABEBE ([id number])[facility] (SBHLAB)[address] Platelet mean volume (Bld) [Entitic vol] 9.6 fL Normal 9.0-12.7 [facility] Comment on above: Performed By: #### L [id number] ####Chief Meteorologist: KEMAR ABEBE ([id number])[facility]ENTERN (SBHLAB)[address] [place] [address] Platelets (Bld) [#/Vol] 407 10*3/uL Normal 140-440 [facility] Comment on above: Performed By: #### L [id number] ####Chief Meteorologist: KEMAR ABEBE ([id number])[facility] (SBHLAB)[address] RBC (Bld) [#/Vol] 3.51 10*6/uL Normal Male: 4.40-5.90; Female: 3.80-5.20 [facility] Comment on above: Performed By: #### L [id number] ####Chief Meteorologist: KEMAR ABEBE ([id number])[facility] [place] (SBHLAB)[address] WBC (Bld) [#/Vol] 7.5 10*3/uL Normal 3.6-10.7 [facility] Comment on above: Performed By: #### L [id number] ####Chief Meteorologist: KEMAR ABEBE ([id number])[facility] [place] (SBHLAB)[address] COMPREHENSIVE METABOLIC PANE Gigi 10-23-2024 Albumin [Mass/Vol] 2.6 g/dL Low 3.5-5.0 [facility] Comment on above: Performed By: #### L AB17, [id number] ####Chief Meteorologist: KEMAR ABEBE ([id number])[facility] [place] (SBHLAB)[address] ALP [Catalytic activity/Vol] 115 U/L Normal [facility] Comment on above: Performed By: #### L AB17, [id number] ####Chief Meteorologist: KEMAR ABEBE ([id number])[facility] [place] (SBHLAB)[address] ALT [Catalytic activity/Vol] 27 U/L Normal [facility] Comment on above: Performed By: #### L AB17, [id number] ####Chief Meteorologist: KEMAR ABEBE ([phone])[facility] [place] (SBHLAB)[address] Anion gap [Moles/Vol] 7 mmol/L Normal 3-13 [facility] Comment on above: Performed By: #### L AB17, [id number] ####Chief Meteorologist: KEMAR ABEBE ([id number])[facility] [place] (SBHLAB)[address] AST [Catalytic activity/Vol] 18 U/L Normal <34 [facility] Comment on above: Performed By: #### L AB17, [id number] ####Chief Meteorologist: KEMAR ABEBE ([id number])[facility] [place] (SBHLAB)[address] Bilirubin [Mass/Vol] 0.3 mg/dL Normal <1.2 [facility] Comment on above: Performed By: #### L AB17, [id number] ####Chief Meteorologist: KEMAR ABEBE ([id number])NATI KASPERJermaine (SBHLAB)[address] [place] [address] [place] Calcium [Mass/Vol] 8.7 mg/dL Normal 8.4-10.2 [facility] Comment on above: Performed By: #### L AB17, NHN313 ####Chief Meteorologist: KEMAR ABEBE ([id number])[facility] KASPERN (SBHLAB)[address] [place] [address] [place] Chloride [Moles/Vol] 101 mmol/L Normal 98-107 [facility] Comment on above: Performed By: #### L AB17, CEV232 ####Chief Meteorologist: KEMAR ABEBE ([id number])[facility] KASPERN (SBHLAB)[address] CO2 [Moles/Vol] 29 mmol/L Normal 22-29 [facility] Comment on above: Performed By: #### L AB17, [id number] ####Chief Meteorologist: KEMAR ABEBE ([id number])[facility] KASPERN (SBHLAB)[address] [place] [address] [place] Creatinine [Mass/Vol] 0.84 mg/dL Normal [facility] Comment on above: Performed By: #### L AB17, IKB815 ####Chief Meteorologist: KEMAR ABEBE ([id number])[facility] KASPERN (SBHLAB)[address] [place] [address] [place] GLOMERULAR FILTRATION RATE ML/MIN/1.73 SQ M.PREDICTED 81.2 mL/min/1.73m*2 Normal >60.0 [facility] Comment on above: Result Comment: Calc ulation based on the Chronic Kidney Disease Epidemiology Collaboration (CKD-EPI) equation refit without adjustment for race Performed By: #### L AB17, ULM134 ####Chief Meteorologist: KEMAR ABEBE ([id number])[facility]ITAL[facility] WADEMARYN (SBHLAB)[address] [place] [address] [place] Glucose [Mass/Vol] 214 mg/dL High 74-100 [facility] Comment on above: Performed By: #### L AB17, [id number] ####Chief Meteorologist: KEMAR ABEBE ([id number])[facility] [place] (SBHLAB)[address] Potassium [Moles/Vol] 3.4 mmol/L Low 3.5-5.1 [facility] Comment on above: Result Comment: [facility] potassium values may be up to 0.5 mmol/L lower than serum values. Performed By: #### L AB17, [id number] ####Chief Meteorologist: KEMAR ABEBE ([id number])[facility] [place] (SBHLAB)[address] Protein [Mass/Vol] 6.1 g/dL Low 6.4-8.3 [facility] Comment on above: Performed By: #### L AB17, [id number] ####Chief Meteorologist: KEMAR ABEBE ([id number])[facility] [place] (SBHLAB)[address] Sodium [Moles/Vol] 137 mmol/L Normal 136-145 [facility] Comment on above: Performed By: #### L AB17, [id number] ####Chief Meteorologist: KEMAR ABEBE ([id number])[facility] (SBHLAB)[address] Urea nitrogen [Mass/Vol] 21 mg/dL Normal 9-23 [facility] Comment on above: Performed By: #### L AB17, [id number] ####Chief Meteorologist: KEMAR ABEBE ([phone])[facility] [place] (SBHLAB)[address] Comprehensive metabolic 1998 panelon 10-23-2024 Albumin [Mass/Vol] 2.6 g/dL Low 3.5 - 5.0 g/dL [facility] ALP [Catalytic activity/Vol] 115 U/L [facility] ALT [Catalytic activity/Vol] 27 U/L [facility] Anion gap [Moles/Vol] 7 mmol/L 3 - 13 mmol/L [facility] AST [Catalytic activity/Vol] 18 U/L NINF - 34 U/L [facility] Bilirubin [Mass/Vol] 0.3 mg/dL NINF - 1.2 mg/dL [facility] Calcium [Mass/Vol] 8.7 mg/dL 8.4 - 10. 2 mg/dL [facility] Chloride [Moles/Vol] 101 mmol/L 98 - 10 7 mmol/L [facility] CO2 [Moles/Vol] 29 mmol/L 22 - 29 mmol/L [facility] Creatinine [Mass/Vol] 0.84 mg/dL [facility] GFR/1.73 sq M.predicted (S/P/Bld) [Vol rate/Area] 81.2 mL/min - PINF [facility] Comment on above: Calculation based on the Chronic Kidney Disease Epidemiology Collaboration (CKD-EPI) equation refit without adjustment for race Glucose [Mass/Vol] 214 mg/dL High 74 - 100 mg/dL [facility] Interpretation and review of laboratory results Abnormal [facility] Potassium [Moles/Vol] 3.4 mmol/L Low 3.5 - 5.1 mmol/L [facility] Comment on above: Plasma potassium helen ues may be up to 0.5 mmol/L lower than serum values. Protein [Mass/Vol] 6.1 g/dL Low 6.4 - 8.3 g/dL [facility] Sodium [Moles/Vol] 137 mmol/L 136 - 145 mmol/L [facility] Urea nitrogen [Mass/Vol] 21 mg/dL 9 - 23 mg/dL [facility] Laboratory - Chemistry and C hemistry - challengeon 10-23-2024 Glucose [Mass/Vol] 309 mg/dL High 70 - 100 mg/dL [facility] Glucose [Mass/Vol] 296 mg/dL High 70 - 100 mg/dL [facility] Glucose [Mass/Vol] 240 mg/dL High 70 - 100 mg/dL [facility] Magnesium [Mass/Vol] 1.9 mg/dL 1.6 - 2 .6 mg/dL [facility] MAGNESIUMon 10-23-2024 Magnesium [Mass/Vol] 1.9 mg/dL Normal 1.6-2.6 [facility] Comment on above: Result Comment: ORDChris R COMMENTS:Higher values can be expected in females during menses. Performed By: #### L AB17, [id number] ####Chief Meteorologist: KEMAR ABEBE ([id number])[facility] MAJOJermaine (SBHLAB)[address] [place] [address] [place] Magnesium [Mass/Vol]on 10-23 Interpretation and review of laboratory results Normal [facility] Higher values can be expected in females during menses. [facility] No Panel Informationon 10-23 Interpretation and review of laboratory results Abnormal [facility] Performed by: [facility], [address] [facility] [address] CLIA ID: [id number] [facility] Interpretation and review of laboratory results Abnormal [facility] Performed by: [facility], [address] [facility] [address] CLIA ID: [id number] [facility] Interpretation and review of laboratory results Abnormal [facility] Performed by: [facility], [address] [facility] [address] CLIA ID: [id number] [facility] Nursing Noteon 10-23-2024 Nursing Note Report called to Cassy kaufman RN at [facility]. Normal [facility] Progress Noteon 10-23-2024 Progress Note Normal [facility] Progress Note Normal [facility] Progress Note Normal [facility] 30on 10-22-2024 30 Normal [facility] 30 Normal [facility] Bacteria identified Aer cx N om (Unsp spec)Ordered By: Timi Ryder on 10-22-2024 Gram Stain Result Few Polymorphonuclea r leukocytes per low power field [facility] Gram Stain Result No organisms seen [facility] CBC W Auto Differential pane l (Bld)on 10-22-2024 Basophils (Bld) [#/Vol] 0.1 10*3/uL 0.0 - 0.2 10*3/uL [facility] Basophils/100 WBC (Bld) 0.5 % 0.0 - 2.0 % [facility] Eosinophils (Bld) [#/Vol] 0.2 10*3/uL 0.0 - 0.5 10*3/uL [facility] Eosinophils/100 WBC (Bld) 1.7 % 0.0 - 6.0 % [facility] Erythrocyte distribution width (RBC) [Ratio] 13.5 % 11.5 - 15.0 % [facility] Hematocrit (Bld) [Volume fraction] 30 % Male: 40.0-52.0 ; Female: 35.0-47.0 [facility] Hemoglobin (Bld) [Mass/Vol] 9.7 g/dL Low 11.7 - 18.0 g/dL [facility] Immature granulocytes (Bld) [#/Vol] 0.1 10*3/uL High NINF - 0.1 10*3/uL [facility] Immature granulocytes/100 WBC (Bld) 1.1 % 0.0 - 2.0 % [facility] Interpretation and review of laboratory results Abnormal [facility] Lymphocytes (Bld) [#/Vol] 1.6 10*3/uL 1.0 - 4.3 10*3/uL [facility] Lymphocytes/100 WBC (Bld) 15.9 % 15.0 - 45.0 % [facility] MCH (RBC) [Entitic mass] 27.2 pg 26.0 - 34.0 pg [facility] MCHC (RBC) [Mass/Vol] 32.3 % 30.5 - 36.0 % [facility] MCV (RBC) [Entitic vol] 84.3 fL 77.0 - 99.0 fL [facility] Monocytes (Bld) [#/Vol] 0.8 10*3/uL 0.0 - 0.9 10*3/uL [facility] Monocytes/100 WBC (Bld) 8.2 % 5.0 - 13.0 % [facility] Neutrophils (Bld) [#/Vol] 7.1 10*3/uL 1.8 - 7.5 10*3/uL [facility] Neutrophils/100 WBC (Bld) 72.6 % 38.0 - 82.0 % [facility] Nucleated RBC/100 WBC (Bld) [Ratio] 0 % [facility] Platelet mean volume (Bld) [Entitic vol] 9.5 fL 9.0 - 12.7 fL [facility] Platelets (Bld) [#/Vol] 419 10*3/uL 140 - 440 10*3/uL [facility] RBC (Bld) [#/Vol] 3.56 10*6/uL Male: 4.40-5.90; Female: 3.80-5.20 [facility] WBC (Bld) [#/Vol] 9.7 10*3/uL 3.6 - 10.7 10*3/uL [facility] CBC WITH AUTO DIFFERENTIALon 10-22-2024 Basophils (Bld) [#/Vol] 0.1 10*3/uL Normal 0.0-0.2 [facility] Comment on above: Performed By: #### L [id number] ####Chief Meteorologist: KEMAR ABEBE ([id number])[facility] [place] (SBHLAB)[address] [place] [address] Basophils/100 WBC (Bld) 0.5 % Normal 0.0-2.0 [facility] Comment on above: Performed By: #### L [id number] ####Chief Meteorologist: KEMAR ABEBE ([id number])[facility] (SBHLAB)[address] [place] [address] Eosinophils (Bld) [#/Vol] 0.2 10*3/uL Normal 0.0-0.5 [facility] Comment on above: Performed By: #### L [id number] ####Chief Meteorologist: KEMAR ABEBE ([id number])[facility] [place] (SBAB)[address] [place] [address] Eosinophils/100 WBC (Bld) 1.7 % Normal 0.0-6.0 [facility] Comment on above: Performed By: #### L [id number] ####Chief Meteorologist: KEMAR ABEBE ([id number])[facility] [place] (SBHLAB)[address] [place] [address] Erythrocyte distribution width (RBC) [Ratio] 13.5 % Normal 11.5-15.0 [facility] Comment on above: Performed By: #### L [id number] ####Chief Meteorologist: KEMAR ABEBE ([id number])[facility] (SBAB)[address] [place] [address] Hematocrit (Bld) [Volume fraction] 30.0 % Normal Male: 40.0-52.0 ; Female: 35.0-47.0 [facility] Comment on above: Performed By: #### L [id number] ####Chief Meteorologist: KEMAR ABEBE ([id number])[facility] (SBAB)[address] Hemoglobin (Bld) [Mass/Vol] 9.7 g/dL Low 11.7-18.0 [facility] Comment on above: Performed By: #### L [id number] ####Chief Meteorologist: KEMAR ABEBE ([id number])[facility] IMMATURE GRANS % 1.1 % Normal 0.0-2.0 [facility] Comment on above: Performed By: #### L [id number] ####Chief Meteorologist: KEMAR ABEBE ([id number])[facility] ([facility])[address] IMMATURE GRANS ABSOLUTE 0.1 10*3/uL High <0.1 [facility] Comment on above: Performed By: #### L [id number] ####Chief Meteorologist: KEMAR ABEBE ([id number])[facility] ([facility])[address] [place] [address] Lymphocytes (Bld) [#/Vol] 1.6 10*3/uL Normal 1.0-4.3 [facility] Comment on above: Performed By: #### L [id number] ####Chief Meteorologist: KEMAR ABEBE ([id number])[facility] Lymphocytes/100 WBC (Bld) 15.9 % Normal 15.0-45.0 [facility] Comment on above: Performed By: #### L [id number] ####Chief Meteorologist: KEMAR ABEBE ([id number])[facility])[address] [place] [address] MCH (RBC) [Entitic mass] 27.2 pg Normal 26.0-34.0 [facility] Comment on above: Performed By: #### L [id number] ####Chief Meteorologist: KEMAR ABEBE ([phone])[facility] ([facility])[address] MCHC 32.3 % Normal 30.5-36.0 [facility] Comment on above: Performed By: #### L [id number] ####Chief Meteorologist: KEMAR ABEBE ([id number])[facility] ([facility])[address] MCV (RBC) [Entitic vol] 84.3 fL Normal 77.0-99.0 [facility] Comment on above: Performed By: #### L [id number] ####Chief Meteorologist: KEMAR ABEBE ([id number])[facility])[address] Monocytes (Bld) [#/Vol] 0.8 10*3/uL Normal 0.0-0.9 [facility] Comment on above: Performed By: #### L [id number] ####Chief Meteorologist: KEMAR ABEBE ([phone])[facility] [facility] [place] ([facility])[address] Monocytes/100 WBC (Bld) 8.2 % Normal 5.0-13.0 [facility] Comment on above: Performed By: #### L [id number] ####Chief Meteorologist: KEMAR ABEBE ([phone])[facility] [place] ([facility])[address] NEUTROPHILS ABSOLUTE 7.1 10*3/uL Normal 1.8-7.5 [facility] Comment on above: Performed By: #### L [id number] ####Chief Meteorologist: KEMAR ABEBE ([phone])[facility] [place] ([facility])[address] Neutrophils/100 WBC (Bld) 72.6 % Normal 38.0-82.0 [facility] Comment on above: Performed By: #### L [id number] ####Chief Meteorologist: KEMAR ABEBE ([phone])[facility]ITAL[facility] [place] (SBHLAB)[address] NRBC 0.0 /100 WBCs Normal 0.0-2.0 [facility] Comment on above: Performed By: #### L [id number] ####Chief Meteorologist: KEMAR ABEBE ([phone])[facility] (SBHLAB)[address] Platelet mean volume (Bld) [Entitic vol] 9.5 fL Normal 9.0-12.7 [facility] Comment on above: Performed By: #### L [id number] ####Chief Meteorologist: KEMAR ABEBE ([id number])[facility]ITAL[facility] (SBHLAB)[address] [place] [address] Platelets (Bld) [#/Vol] 419 10*3/uL Normal 140-440 [facility] Comment on above: Performed By: #### L [id number] ####Chief Meteorologist: KEMAR ABEBE ([id number])[facility]ITAL[facility] (SBHLAB)[address] [place] [address] RBC (Bld) [#/Vol] 3.56 10*6/uL Normal Male: 4.40-5.90; Female: 3.80-5.20 [facility] Comment on above: Performed By: #### L [id number] ####Chief Meteorologist: KEMAR ABEBE ([phone])[facility]ITAL[facility] (SBHLAB)[address] [place] [address] WBC (Bld) [#/Vol] 9.7 10*3/uL Normal 3.6-10.7 [facility] Comment on above: Performed By: #### L [id number] ####Chief Meteorologist: KEMAR ABEBE ([phone])[facility]ITAL[facility] [place] (SBHLAB)[address] COMPREHENSIVE METABOLIC PANE Gigi 12-15-2024 Albumin [Mass/Vol] 2.7 g/dL Low 3.5-5.0 [facility] Comment on above: Performed By: #### L AB17, [id number] ####Chief Meteorologist: KEMAR ABEBE ([phone])[facility] [place] ([facility])[address] ALP [Catalytic activity/Vol] 127 U/L Normal [facility] Comment on above: Performed By: #### L AB17, [id number] ####Chief Meteorologist: KEMAR ABEBE ([phone])[facility] [place] ([facility])[address] ALT [Catalytic activity/Vol] 32 U/L Normal [facility] Comment on above: Performed By: #### L AB17, [id number] ####Chief Meteorologist: KEMAR ABEBE ([phone])[facility] [place] ([facility])[address] Anion gap [Moles/Vol] 11 mmol/L Normal 3-13 [facility] Comment on above: Performed By: #### L AB17, [id number] ####Chief Meteorologist: KEMAR ABEBE ([phone])[facility] [place] ([facility])[address] AST [Catalytic activity/Vol] 19 U/L Normal <34 [facility] Comment on above: Performed By: #### L AB17, [id number] ####Chief Meteorologist: KEMAR ABEBE ([id number])[facility] [place] ([facility])[address] Bilirubin [Mass/Vol] 0.3 mg/dL Normal <1.2 [facility] Comment on above: Performed By: #### L AB17, [id number] ####Chief Meteorologist: KEMAR ABEBE ([id number])[facility] [place] ([facility])[address] Calcium [Mass/Vol] 8.7 mg/dL Normal 8.4-10.2 [facility] Comment on above: Performed By: #### L AB17, [id number] ####Chief Meteorologist: KEMAR ABEBE ([id number])[facility]ITAL[facility] [place] (SB[facility]AB)[address] Chloride [Moles/Vol] 104 mmol/L Normal 98-107 [facility] Comment on above: Performed By: #### L AB17, [id number] ####Chief Meteorologist: KEMAR ABEBE ([phone])[facility]ITAL[facility] [place] ([place])[address] CO2 [Moles/Vol] 24 mmol/L Normal 22-29 [facility] Comment on above: Performed By: #### L AB17, [id number] ####Chief Meteorologist: KEMAR ABEBE ([id number])[facility]ITAL[facility] [place] ([place])[address] Creatinine [Mass/Vol] 1.05 mg/dL Normal [facility] Comment on above: Performed By: #### L AB17, [id number] ####Chief Meteorologist: KEMAR ABEBE ([phone])[facility]ITAL[facility] [place] ([place]AB)[address] GLOMERULAR FILTRATION RATE ML/MIN/1.73 SQ M.PREDICTED 62.1 mL/min/1.73m*2 Normal >60.0 [facility] Comment on above: Result Comment: Calc ulation based on the Chronic Kidney Disease Epidemiology Collaboration (CKD-EPI) equation refit without adjustment for race Performed By: #### L AB17, [id number] ####Chief Meteorologist: KEMAR ABEBE ([id number])[facility]ITALWarren [place] (SBHLAB)[address] [place] [address] [place] Glucose [Mass/Vol] 148 mg/dL High 74-100 [facility] Comment on above: Performed By: #### L AB17, [id number] ####Chief Meteorologist: KEMAR ABEBE ([id number])[facility]ITAL[facility] [place] (SBHLAB)[address] [place] [address] [place] Potassium [Moles/Vol] 3.3 mmol/L Low 3.5-5.1 [facility] Comment on above: Result Comment: [facility] potassium values may be up to 0.5 mmol/L lower than serum values. Performed By: #### L AB17, [id number] ####Chief Meteorologist: KEMAR ABEBE ([phone])[facility] [place] ([facility])[address] Protein [Mass/Vol] 6.4 g/dL Normal 6.4-8.3 [facility] Comment on above: Performed By: #### L AB17, [id number] ####Chief Meteorologist: KEMAR ABEBE ([id number])[facility] [place] ([facility])[address] Sodium [Moles/Vol] 139 mmol/L Normal 136-145 [facility] Comment on above: Performed By: #### L AB17, [id number] ####Chief Meteorologist: KEMAR ABEBE ([id number])[facility] [place] ([facility])[address] Urea nitrogen [Mass/Vol] 35 mg/dL High 9-23 [facility] Comment on above: Performed By: #### L AB17, [id number] ####Chief Meteorologist: KEMAR ABEBE ([id number])[facility] (SBHLAB)[address] Comprehensive metabolic 1998 panelon 10-22-2024 Albumin [Mass/Vol] 2.7 g/dL Low 3.5 - 5.0 g/dL [facility] ALP [Catalytic activity/Vol] 127 U/L [facility] ALT [Catalytic activity/Vol] 32 U/L [facility] Anion gap [Moles/Vol] 11 mmol/L 3 - 13 mmol/L [facility] AST [Catalytic activity/Vol] 19 U/L NINF - 34 U/L [facility] Bilirubin [Mass/Vol] 0.3 mg/dL NINF - 1.2 mg/dL [facility] Calcium [Mass/Vol] 8.7 mg/dL 8.4 - 10. 2 mg/dL [facility] Chloride [Moles/Vol] 104 mmol/L 98 - 10 7 mmol/L [facility] CO2 [Moles/Vol] 24 mmol/L 22 - 29 mmol/L [facility] Creatinine [Mass/Vol] 1.05 mg/dL [facility] GFR/1.73 sq M.predicted (S/P/Bld) [Vol rate/Area] 62.1 mL/min - PINF [facility] Comment on above: Calculation based on the Chronic Kidney Disease Epidemiology Collaboration (CKD-EPI) equation refit without adjustment for race Glucose [Mass/Vol] 148 mg/dL High 74 - 100 mg/dL [facility] Interpretation and review of laboratory results Abnormal [facility] Potassium [Moles/Vol] 3.3 mmol/L Low 3.5 - 5.1 mmol/L [facility] Comment on above: Plasma potassium helen ues may be up to 0.5 mmol/L lower than serum values. Protein [Mass/Vol] 6.4 g/dL 6.4 - 8.3 g/dL [facility] Sodium [Moles/Vol] 139 mmol/L 136 - 145 mmol/L [facility] Urea nitrogen [Mass/Vol] 35 mg/dL High 9 - 23 mg/dL [facility] - Chemistry and C hemistry - challengeon 10-22-2024 Glucose [Mass/Vol] 312 mg/dL High 70 - 100 mg/dL [facility] Glucose [Mass/Vol] 283 mg/dL High 70 - 100 mg/dL [facility] Glucose [Mass/Vol] 295 mg/dL High 70 - 100 mg/dL [facility] Glucose [Mass/Vol] 258 mg/dL High 70 - 100 mg/dL [facility] Glucose [Mass/Vol] 210 mg/dL High 70 - 100 mg/dL [facility] Magnesium [Mass/Vol] 2 mg/dL 1.6 - 2 .6 mg/dL [facility] - Microbiology an d Antimicrobial susceptibilityOrdered By: Timi Ryder on 10-22-2024 Bacteria identified Aer cx Nom (Unsp spec) No growth at 72 hours [facility] MAGNESIUMon 10-22-2024 Magnesium [Mass/Vol] 2.0 mg/dL Normal 1.6-2.6 [facility] Comment on above: Result Comment: ORDE R COMMENTS:Higher values can be expected in females during menses. Performed By: #### L AB17, [id number] ####Chief Meteorologist: KEMAR ABEBE ([id number])[place] (SBHLAB)[address] [place] [address] [place] Magnesium [Mass/Vol]on 10-22 Interpretation and review of laboratory results Normal [facility] Higher values can be expected in females during menses. [facility] [employer] [facility] No Panel Informationon 10-22 Interpretation and review of laboratory results Abnormal [facility] Performed by: [facility], [address] [place] [id number] CLIA ID: [id number] [facility] [employer] [facility] Interpretation and review of laboratory results Abnormal [facility] Performed by: [facility], [address] [place] [address] CLIA ID: [id number] [facility] [employer] [facility] Interpretation and review of laboratory results Abnormal [facility] Performed by: [facility], [address] [place] [address] CLIA ID: [id number] [facility] [employer] [facility] Interpretation and review of laboratory results Abnormal [facility] Performed by: [facility], [address] [place] [address] CLIA ID: [id number] [facility] Progress Noteon 10-22-2024 Progress Note Normal [facility] Progress Note Normal [facility] [id number] 10-21-2024 [id number] Normal [facility] CBC W Auto Differential pane l (Bld)on 10-21-2024 Basophils (Bld) [#/Vol] 0.1 10*3/uL 0.0 - 0.2 10*3/uL [facility] Basophils/100 WBC (Bld) 0.6 % 0.0 - 2.0 % [facility] Eosinophils (Bld) [#/Vol] 0.2 10*3/uL 0.0 - 0.5 10*3/uL [facility] Eosinophils/100 WBC (Bld) 1.6 % 0.0 - 6.0 % [facility] Erythrocyte distribution width (RBC) [Ratio] 13.4 % 11.5 - 15.0 % [facility] Hematocrit (Bld) [Volume fraction] 31.6 % Male: 40.0-52.0 ; Female: 35.0-47.0 [facility] Hemoglobin (Bld) [Mass/Vol] 10.2 g/dL Low 11.7 - 18.0 g/dL [facility] Immature granulocytes (Bld) [#/Vol] 0.1 10*3/uL High NINF - 0.1 10*3/uL [facility] Immature granulocytes/100 WBC (Bld) 0.8 % 0.0 - 2.0 % [facility] Interpretation and review of laboratory results Abnormal [facility] Lymphocytes (Bld) [#/Vol] 1.8 10*3/uL 1.0 - 4.3 10*3/uL [facility] Lymphocytes/100 WBC (Bld) 15.3 % 15.0 - 45.0 % [facility] MCH (RBC) [Entitic mass] 27.3 pg 26.0 - 34.0 pg [facility] MCHC (RBC) [Mass/Vol] 32.3 % 30.5 - 36.0 % [facility] MCV (RBC) [Entitic vol] 84.7 fL 77.0 - 99.0 fL [facility] [employer] Monocytes (Bld) [#/Vol] 0.8 10*3/uL 0.0 - 0.9 10*3/uL [facility] Monocytes/100 WBC (Bld) 6.8 % 5.0 - 13.0 % [facility] Neutrophils (Bld) [#/Vol] 8.9 10*3/uL High 1.8 - 7.5 10*3/uL [facility] Neutrophils/100 WBC (Bld) 74.9 % 38.0 - 82.0 % [facility] Nucleated RBC/100 WBC (Bld) [Ratio] 0 % [facility] Platelet mean volume (Bld) [Entitic vol] 9.7 fL 9.0 - 12.7 fL [facility] Platelets (Bld) [#/Vol] 396 10*3/uL 140 - 440 10*3/uL [facility] RBC (Bld) [#/Vol] 3.73 10*6/uL Male: 4.40-5.90; Female: 3.80-5.20 [facility] WBC (Bld) [#/Vol] 11.9 10*3/uL High 3.6 - 10.7 10*3/uL [facility] CBC WITH AUTO DIFFERENTIALon 10-21-2024 Basophils (Bld) [#/Vol] 0.1 10*3/uL Normal 0.0-0.2 [facility] Comment on above: Performed By: #### L [id number] ####Chief Meteorologist: KEMAR ABEBE ([id number])[facility] [place] ([facility])[address] Basophils/100 WBC (Bld) 0.6 % Normal 0.0-2.0 [facility] Comment on above: Performed By: #### L [id number] ####Chief Meteorologist: KEMAR ABEBE ([id number])[facility] (SBAB)[address] [place] [address] Eosinophils (Bld) [#/Vol] 0.2 10*3/uL Normal 0.0-0.5 [facility] Comment on above: Performed By: #### L [id number] ####Chief Meteorologist: KEMAR ABEBE ([phone])[facility]ITAL[facility] (SBAB)[address] [place] [address] Eosinophils/100 WBC (Bld) 1.6 % Normal 0.0-6.0 [facility] Comment on above: Performed By: #### L [id number] ####Chief Meteorologist: KEMAR ABEBE ([id number])[facility] (SBAB)[address] [place] [address] Erythrocyte distribution width (RBC) [Ratio] 13.4 % Normal 11.5-15.0 [facility] Comment on above: Performed By: #### L [id number] ####Chief Meteorologist: KEMAR ABEBE ([phone])[facility] (SB[facility])[address] [place] [address] Hematocrit (Bld) [Volume fraction] 31.6 % Normal Male: 40.0-52.0 ; Female: 35.0-47.0 [facility] Comment on above: Performed By: #### L [id number] ####Chief Meteorologist: KEMAR ABEBE ([id number])[facility] Hemoglobin (Bld) [Mass/Vol] 10.2 g/dL Low 11.7-18.0 [facility] Comment on above: Performed By: #### L [id number] ####Chief Meteorologist: KEMAR ABEBE ([id number])[facility] IMMATURE GRANS % 0.8 % Normal 0.0-2.0 [facility] Comment on above: Performed By: #### L [id number] ####Chief Meteorologist: KEMAR LUDWIGSAAD ([id number])[facility] ([facility])[address] [place] [address] IMMATURE GRANS ABSOLUTE 0.1 10*3/uL High <0.1 [facility] Comment on above: Performed By: #### L [id number] ####Chief Meteorologist: KEMAR ABEBE ([phone])[facility])[address] Lymphocytes (Bld) [#/Vol] 1.8 10*3/uL Normal 1.0-4.3 [facility] Comment on above: Performed By: #### L [id number] ####Chief Meteorologist: KEMAR ABEBE ([phone])[facility] Lymphocytes/100 WBC (Bld) 15.3 % Normal 15.0-45.0 [facility] Comment on above: Performed By: #### L [id number] ####Chief Meteorologist: KEMAR ABEBE ([phone])[facility] MCH (RBC) [Entitic mass] 27.3 pg Normal 26.0-34.0 [facility] Comment on above: Performed By: #### L [id number] ####Chief Meteorologist: KEMAR MOMINHiginioSAAD ([phone])[facility] (SBHLAB)[address] [place] [address] MCHC 32.3 % Normal 30.5-36.0 [facility] Comment on above: Performed By: #### L [id number] ####Chief Meteorologist: KEMAR LUDWIGSAAD ([id number])[facility] [place] (SBHLAB)[address] MCV (RBC) [Entitic vol] 84.7 fL Normal 77.0-99.0 [facility] Comment on above: Performed By: #### L [id number] ####Chief Meteorologist: KEMAR ANDRAE ([id number])[place] (SBHLAB)[address] [place] [address] Monocytes (Bld) [#/Vol] 0.8 10*3/uL Normal 0.0-0.9 [facility] Comment on above: Performed By: #### L [id number] ####Chief Meteorologist: KEMAR ANDRAE ([id number])[facility]ITAL[facility] [place] (SB[facility])[address] Monocytes/100 WBC (Bld) 6.8 % Normal 5.0-13.0 [facility] Comment on above: Performed By: #### L [id number] ####Chief Meteorologist: KEMAR LUDWIGSAAD ([phone])[facility] [place] ([facility])[address] NEUTROPHILS ABSOLUTE 8.9 10*3/uL High 1.8-7.5 [facility] Comment on above: Performed By: #### L [id number] ####Chief Meteorologist: KEMAR LUDWIGSAAD ([phone])[facility] [place] ([facility])[address] Neutrophils/100 WBC (Bld) 74.9 % Normal 38.0-82.0 [facility] Comment on above: Performed By: #### L [id number] ####Chief Meteorologist: KEMAR ABEBE ([phone])[facility] [place] ([facility])[address] NRBC 0.0 /100 WBCs Normal 0.0-2.0 [facility] Comment on above: Performed By: #### L [id number] ####Chief Meteorologist: KEMAR ABEBE ([id number])[facility] [place] ([facility])[address] Platelet mean volume (Bld) [Entitic vol] 9.7 fL Normal 9.0-12.7 [facility] Comment on above: Performed By: #### L [id number] ####Chief Meteorologist: KEMAR ABEBE ([phone])[facility] [place] ([facility])[address] [place] [address] Platelets (Bld) [#/Vol] 396 10*3/uL Normal 140-440 [facility] Comment on above: Performed By: #### L [id number] ####Chief Meteorologist: KEMAR ABEBE ([phone])[facility] (SB[facility]AB)[address] [place] [address] RBC (Bld) [#/Vol] 3.73 10*6/uL Normal Male: 4.40-5.90; Female: 3.80-5.20 [facility] Comment on above: Performed By: #### L [id number] ####Chief Meteorologist: KEMAR ABEBE ([phone])[facility] [place] ([facility])[address] [place] [address] WBC (Bld) [#/Vol] 11.9 10*3/uL High 3.6-10.7 [facility] Comment on above: Performed By: #### L [id number] ####Chief Meteorologist: KEMAR ABEBE ([id number])[facility] [place] ([facility])[address] COMPREHENSIVE METABOLIC PANE Gigi 10-21-2024 Albumin [Mass/Vol] 2.7 g/dL Low 3.5-5.0 [facility] Comment on above: Performed By: #### L AB17, [id number] ####Chief Meteorologist: KEMAR LUDWIGSAAD ([id number])[facility] [place] ([facility])[address] ALP [Catalytic activity/Vol] 135 U/L Normal [facility] Comment on above: Performed By: #### L AB17, [id number] ####Chief Meteorologist: KEMAR ABEBE ([id number])[facility] [place] ([facility])[address] ALT [Catalytic activity/Vol] 42 U/L Normal [facility] Comment on above: Performed By: #### L AB17, [id number] ####Chief Meteorologist: KEMAR LUDWIGSAAD ([id number])[facility] (SB[facility]AB)[address] Anion gap [Moles/Vol] 12 mmol/L Normal 3-13 [facility] Comment on above: Performed By: #### L AB17, [id number] ####Chief Meteorologist: KEMAR ABEBE ([phone])[facility] (HLAB)[address] AST [Catalytic activity/Vol] 20 U/L Normal <34 [facility] Comment on above: Performed By: #### L AB17, HEG930 ####Chief Meteorologist: KEMAR ABEBE ([phone])[facility] (SB[facility])[address] Bilirubin [Mass/Vol] 0.3 mg/dL Normal <1.2 [facility] Comment on above: Performed By: #### L AB17, [id number] ####Chief Meteorologist: KEMAR ABEBE ([phone])[facility] (SBHLAB)[address] Calcium [Mass/Vol] 8.8 mg/dL Normal 8.4-10.2 [facility] Comment on above: Performed By: #### L AB17, [id number] ####Chief Meteorologist: KEMAR ABEBE ([phone])[facility] (SBHLAB)[address] [place] [address] [place] Chloride [Moles/Vol] 100 mmol/L Normal 98-107 [facility] Comment on above: Performed By: #### L AB17, WRI905 ####Chief Meteorologist: KEMAR ABEBE ([id number])[facility] [place] ([facility])[address] CO2 [Moles/Vol] 23 mmol/L Normal 22-29 [facility] Comment on above: Performed By: #### L AB17, [id number] ####Chief Meteorologist: KEMAR ABEBE ([id number])[facility]ITALWarren [facility] (SBHLAB)[address] Creatinine [Mass/Vol] 1.35 mg/dL Normal [facility] Comment on above: Performed By: #### L AB17, [id number] ####Chief Meteorologist: KEMAR ABEBE ([id number])[facility]ITALWar[facility] (SBHLAB)[address] GLOMERULAR FILTRATION RATE ML/MIN/1.73 SQ M.PREDICTED 45.9 mL/min/1.73m*2 Low >60.0 [facility] Comment on above: Result Comment: Calc ulation based on the Chronic Kidney Disease Epidemiology Collaboration (CKD-EPI) equation refit without adjustment for race Performed By: #### L AB17, [id number] ####Chief Meteorologist: KEMAR ABEBE ([phone])[facility]ITAL[facility] [place] (SBHLAB)[address] [place] [address] [place] Glucose [Mass/Vol] 112 mg/dL High 74-100 [facility] Comment on above: Performed By: #### L AB17, [id number] ####Chief Meteorologist: KEMAR ABEBE ([phone])[facility]ITAL[facility] [place] ([facility])[address] [place] [address] [place] Potassium [Moles/Vol] 3.3 mmol/L Low 3.5-5.1 [facility] Comment on above: Result Comment: [facility] potassium values may be up to 0.5 mmol/L lower than serum values. Performed By: #### L AB17, [id number] ####Chief Meteorologist: KEMAR ABEBE ([id number])[facility] [place] ([facility])[address] Protein [Mass/Vol] 6.6 g/dL Normal 6.4-8.3 [facility] Comment on above: Performed By: #### L AB17, [id number] ####Chief Meteorologist: KEMAR ABEBE ([id number])[facility] ([facility])[address] Sodium [Moles/Vol] 135 mmol/L Low 136-145 [facility] Comment on above: Performed By: #### L AB17, [id number] ####Chief Meteorologist: KEMAR ABEBE ([id number])[facility] ([facility])[address] Urea nitrogen [Mass/Vol] 48 mg/dL High 9-23 [facility] Comment on above: Performed By: #### L AB17, [id number] ####Chief Meteorologist: KEMAR ABEBE ([id number])[facility] ([facility])[address] Comprehensive metabolic 1998 panelon 10-21-2024 Albumin [Mass/Vol] 2.7 g/dL Low 3.5 - 5.0 g/dL [facility] ALP [Catalytic activity/Vol] 135 U/L [facility] ALT [Catalytic activity/Vol] 42 U/L [facility] Anion gap [Moles/Vol] 12 mmol/L 3 - 13 mmol/L [facility] AST [Catalytic activity/Vol] 20 U/L NINF - 34 U/L [facility] Bilirubin [Mass/Vol] 0.3 mg/dL NINF - 1.2 mg/dL [facility] Calcium [Mass/Vol] 8.8 mg/dL 8.4 - 10. 2 mg/dL [facility] Chloride [Moles/Vol] 100 mmol/L 98 - 10 7 mmol/L [facility] CO2 [Moles/Vol] 23 mmol/L 22 - 29 mmol/L [facility] Creatinine [Mass/Vol] 1.35 mg/dL [facility] GFR/1.73 sq M.predicted (S/P/Bld) [Vol rate/Area] 45.9 mL/min Low - PINF [facility] Comment on above: Calculation based on the Chronic Kidney Disease Epidemiology Collaboration (CKD-EPI) equation refit without adjustment for race Glucose [Mass/Vol] 112 mg/dL High 74 - 100 mg/dL [facility] Interpretation and review of laboratory results Abnormal [facility] Potassium [Moles/Vol] 3.3 mmol/L Low 3.5 - 5.1 mmol/L [facility] Comment on above: Plasma potassium helen ues may be up to 0.5 mmol/L lower than serum values. Protein [Mass/Vol] 6.6 g/dL 6.4 - 8.3 g/dL [facility] Sodium [Moles/Vol] 135 mmol/L Low 136 - 145 mmol/L [facility] Urea nitrogen [Mass/Vol] 48 mg/dL High 9 - 23 mg/dL [facility] - Chemistry and C hemistry - challengeon 10-21-2024 Glucose [Mass/Vol] 151 mg/dL High 70 - 100 mg/dL [facility] Glucose [Mass/Vol] 141 mg/dL High 70 - 100 mg/dL [facility] Glucose [Mass/Vol] 161 mg/dL High 70 - 100 mg/dL [facility] Glucose [Mass/Vol] 182 mg/dL High 70 - 100 mg/dL [facility] Glucose [Mass/Vol] 185 mg/dL High 70 - 100 mg/dL [facility] Magnesium [Mass/Vol] 2 mg/dL 1.6 - 2 .6 mg/dL [facility] MAGNESIUMon 10-21-2024 Magnesium [Mass/Vol] 2.0 mg/dL Normal 1.6-2.6 [facility] Comment on above: Result Comment: MARIE Askew COMMENTS:Higher values can be expected in females during menses. Performed By: #### L [id number] ####Chief Meteorologist: KEMAR ABEBE ([phone])[facility] ([facility])[address] [place] [address], [place] [address] [place] Magnesium [Mass/Vol]on 10-21 Interpretation and review of laboratory results Normal [facility] Higher values can be expected in females during menses. [facility] No Panel Informationon 10-21 Interpretation and review of laboratory results Abnormal [facility] [facility], [address] [facility] [address] CLIA ID: [id number] [facility] Interpretation and review of laboratory results Ab[facility] Performed by: [facility], [address] [facility] [address] CLIA ID: [id number] [facility] Interpretation and review of laboratory results Abnormal [facility] Performed by: [facility], [address] [facility], [facility] [address] CLIA ID: [id number] [facility] Interpretation and review of laboratory results Abnormal [facility] Performed by: [facility], [address] [facility], [facility] [address] CLIA ID: [id number] [facility] Interpretation and review of laboratory results Abnormal [facility] Performed by: [facility], [address] [facility], [facility] [address] CLIA ID: [id number] [facility] Progress Noteon 10-21-2024 Progress Note Normal [facility] Progress Note Normal [facility] [id number] 10-20-2024 [id number] Normal [facility] [id number] Sent updated [facility] t [facility] per [facility] request. Await review and response regarding ability to accept. TCC notified. Normal [facility] Bacteria identified Cx Nom ( U)Ordered By: Sagrario Clark on 10-20-2024 Interpretation and review of laboratory results Normal [facility] C-REACTIVE PROTEINon 024 CRP [Mass/Vol] 261.6 mg/L High <5.0 [facility] Comment on above: Performed By: #### L [id number], LAB17, [id number] ####Chief Meteorologist: KEMAR ABEBE ([id number])[facility] ([facility])[address] [place] [address] CBC W Auto Differential pane l (Bld)on 10-20-2024 Basophils (Bld) [#/Vol] 0 10*3/uL 0.0 - 0.2 10*3/uL [facility] Basophils/100 WBC (Bld) 0.1 % 0.0 - 2.0 % [facility] Eosinophils (Bld) [#/Vol] 0 10*3/uL 0.0 - 0.5 10*3/uL [facility] Eosinophils/100 WBC (Bld) 0.2 % 0.0 - 6.0 % [facility] Erythrocyte distribution width (RBC) [Ratio] 13.9 % 11.5 - 15.0 % [facility] [employer] Hematocrit (Bld) [Volume fraction] 33 % Male: 40.0-52.0 ; Female: 35.0-47.0 [facility] [employer] Hemoglobin (Bld) [Mass/Vol] 10.5 g/dL Low 11.7 - 18.0 g/dL [facility] [employer] Immature granulocytes (Bld) [#/Vol] 0.2 10*3/uL High NINF - 0.1 10*3/uL [facility] Immature granulocytes/100 WBC (Bld) 1.3 % 0.0 - 2.0 % [facility] Interpretation and review of laboratory results Abnormal [facility] Lymphocytes (Bld) [#/Vol] 1.1 10*3/uL 1.0 - 4.3 10*3/uL [facility] Lymphocytes/100 WBC (Bld) 8 % Low 15.0 - 45.0 % [facility] MCH (RBC) [Entitic mass] 27.3 pg 26.0 - 34.0 pg [facility] [employer] MCHC (RBC) [Mass/Vol] 31.8 % 30.5 - 36.0 % [facility] [employer] MCV (RBC) [Entitic vol] 85.7 fL 77.0 - 99.0 fL [facility] Monocytes (Bld) [#/Vol] 0.8 10*3/uL 0.0 - 0.9 10*3/uL [facility] Monocytes/100 WBC (Bld) 5.7 % 5.0 - 13.0 % [facility] Neutrophils (Bld) [#/Vol] 11.4 10*3/uL High 1.8 - 7.5 10*3/uL [facility] Neutrophils/100 WBC (Bld) 84.7 % High 38.0 - 82.0 % [facility] Nucleated RBC/100 WBC (Bld) [Ratio] 0 % [facility] Platelet mean volume (Bld) [Entitic vol] 9.9 fL 9.0 - 12.7 fL [facility] Platelets (Bld) [#/Vol] 353 10*3/uL 140 - 440 10*3/uL [facility] RBC (Bld) [#/Vol] 3.85 10*6/uL Male: 4.40-5.90; Female: 3.80-5.20 [facility] WBC (Bld) [#/Vol] 13.4 10*3/uL High 3.6 - 10.7 10*3/uL [facility] CBC WITH AUTO DIFFERENTIALon 10-20-2024 Basophils (Bld) [#/Vol] 0.0 10*3/uL Normal 0.0-0.2 [facility] Comment on above: Performed By: #### L [id number] ####Chief Meteorologist: KEMAR ABEBE ([id number])[facility] ([facility])[address] [place] [address] Basophils/100 WBC (Bld) 0.1 % Normal 0.0-2.0 [facility] Comment on above: Performed By: #### L [id number] ####Chief Meteorologist: KEMAR ABEBE ([phone])[facility] ([facility])[address] [place] [address] Eosinophils (Bld) [#/Vol] 0.0 10*3/uL Normal 0.0-0.5 [facility] Comment on above: Performed By: #### L [id number] ####Chief Meteorologist: KEMAR ABEBE ([phone])[facility] ([facility])[address] [place] [address] [place] Eosinophils/100 WBC (Bld) 0.2 % Normal 0.0-6.0 [facility] Comment on above: Performed By: #### L [id number] ####Chief Meteorologist: KEMAR ABEBE ([phone])[facility])[address] [place] [address] Erythrocyte distribution width (RBC) [Ratio] 13.9 % Normal 11.5-15.0 [facility] Comment on above: Performed By: #### L [id number] ####Chief Meteorologist: KEMAR ABEBE ([id number])[facility] ([facility])[address] [place] [address] Hematocrit (Bld) [Volume fraction] 33.0 % Normal Male: 40.0-52.0 ; Female: 35.0-47.0 [facility] Comment on above: Performed By: #### L [id number] ####Chief Meteorologist: KEMAR LUDWIGSAAD ([id number])[facility])[address] [place] [address] Hemoglobin (Bld) [Mass/Vol] 10.5 g/dL Low 11.7-18.0 [facility] Comment on above: Performed By: #### L [id number] ####Chief Meteorologist: KEMAR ABEBE ([id number])[facility])[address] [place] [address] IMMATURE GRANS % 1.3 % Normal 0.0-2.0 [facility] Comment on above: Performed By: #### L [id number] ####Chief Meteorologist: KEMAR ABEBE ([phone])[facility] [place] [address] IMMATURE GRANS ABSOLUTE 0.2 10*3/uL High <0.1 [facility] Comment on above: Performed By: #### L [id number] ####Chief Meteorologist: KEMAR ABEBE ([id number])[facility] [place] [address] Lymphocytes (Bld) [#/Vol] 1.1 10*3/uL Normal 1.0-4.3 [facility] Comment on above: Performed By: #### L [id number] ####Chief Meteorologist: KEMAR ABEBE ([phone])[facility]ENTERJerm[facility] (SB[facility])[address] Lymphocytes/100 WBC (Bld) 8.0 % Low 15.0-45.0 [facility] Comment on above: Performed By: #### L [id number] ####Chief Meteorologist: KEMAR ABEBE ([id number])[facility]ERN ([facility])[address] MCH (RBC) [Entitic mass] 27.3 pg Normal 26.0-34.0 [facility] Comment on above: Performed By: #### L [id number] ####Chief Meteorologist: KEMAR LUDWIGSAAD ([phone])[facility] ([facility])[address] [place] [address] MCHC 31.8 % Normal 30.5-36.0 [facility] Comment on above: Performed By: #### L [id number] ####Chief Meteorologist: KEMAR ABEBE ([phone])[facility]ITAL[facility] [place] ([facility])[address] [place] [address] MCV (RBC) [Entitic vol] 85.7 fL Normal 77.0-99.0 [facility] Comment on above: Performed By: #### L [id number] ####Chief Meteorologist: KEMAR ABEBE ([id number])[facility]ENTERN ([facility])[address] [place] [address] Monocytes (Bld) [#/Vol] 0.8 10*3/uL Normal 0.0-0.9 [facility] Comment on above: Performed By: #### L [id number] ####Chief Meteorologist: KEMAR ABEBE ([id number])[facility] ([facility])[address] [place] [address] Monocytes/100 WBC (Bld) 5.7 % Normal 5.0-13.0 S [facility] Comment on above: Performed By: #### L [id number] ####Chief Meteorologist: KEMAR ABEBE ([phone])[facility] ([facility])[address] NEUTROPHILS ABSOLUTE 11.4 10*3/uL High 1.8-7.5 [facility] Comment on above: Performed By: #### L [id number] ####Chief Meteorologist: KEMAR ABEBE ([phone])[facility] ([facility])[address] Neutrophils/100 WBC (Bld) 84.7 % High 38.0-82.0 [facility] Comment on above: Performed By: #### L [id number] ####Chief Meteorologist: KEMAR ABEBE ([id number])[facility] [place] ([facility])[address] NRBC 0.0 /100 WBCs Normal 0.0-2.0 [facility] Comment on above: Performed By: #### L IL3470 ####Chief Meteorologist: KEMAR ABEBE ([id number])[facility] [place] ([facility])[address] Platelet mean volume (Bld) [Entitic vol] 9.9 fL Normal 9.0-12.7 [facility] Comment on above: Performed By: #### L [id number] ####Chief Meteorologist: KEMAR ABEBE ([id number])[facility] [place] ([facility])[address] Platelets (Bld) [#/Vol] 353 10*3/uL Normal 140-440 [facility] Comment on above: Performed By: #### L [id number] ####Chief Meteorologist: KEMAR ABEBE ([id number])[facility] [place] ([facility])[address] RBC (Bld) [#/Vol] 3.85 10*6/uL Normal Male: 4.40-5.90; Female: 3.80-5.20 [facility] Comment on above: Performed By: #### L [id number] ####Chief Meteorologist: KEMAR ABEBE ([id number])[facility] [place] ([facility])[address] WBC (Bld) [#/Vol] 13.4 10*3/uL High 3.6-10.7 [facility] Comment on above: Performed By: #### L [id number] ####Chief Meteorologist: KEMAR ABEBE ([id number])[facility] [place] ([facility])[address] COMPREHENSIVE METABOLIC PANE Gigi 10-20-2024 Albumin [Mass/Vol] 2.8 g/dL Low 3.5-5.0 [facility] Comment on above: Performed By: #### L [id number], LAB17, OJC966 ####Chief Meteorologist: KEMAR ABEBE ([phone])[facility] [place] ([facility])[address] ALP [Catalytic activity/Vol] 155 U/L Normal [facility] Comment on above: Performed By: #### L [id number], LAB17, CVD657 ####Chief Meteorologist: KEMAR ABEBE ([id number])[facility] [place] ([facility])[address] ALT [Catalytic activity/Vol] 53 U/L Normal [facility] Comment on above: Performed By: #### L [id number], LAB17, QLU721 ####Chief Meteorologist: KEMAR ABEBE ([id number])[facility] [place] ([facility])[address] Anion gap [Moles/Vol] 14 mmol/L High 3-13 [facility] Comment on above: Performed By: #### L [id number], LAB17, DAY365 ####Chief Meteorologist: KEMAR ABEBE ([id number])[facility] [place] ([facility])[address] AST [Catalytic activity/Vol] 20 U/L Normal <34 [facility] Comment on above: Performed By: #### Elijah [address], LAB17, YNC481 ####Chief Meteorologist: KEMAR ABEBE ([phone])[facility] [place] ([facility])[address] Bilirubin [Mass/Vol] 0.5 mg/dL Normal <1.2 [facility] Comment on above: Performed By: #### L [id number], LAB17, AYI860 ####Chief Meteorologist: KEMAR ABEBE ([phone])[facility] [place] ([facility])[address] Calcium [Mass/Vol] 9.0 mg/dL Normal 8.4-10.2 [facility] Comment on above: Performed By: #### Elijah RODRIGUEZ, LAB17, BAB573 ####Chief Meteorologist: KEMAR ABEBE ([phone])[facility] ([facility])[address] Chloride [Moles/Vol] 98 mmol/L Normal 98-107 [facility] Comment on above: Performed By: #### Elijah [address], LAB17, WXO248 ####Chief Meteorologist: KEMAR ABEBE ([phone])[facility]ERN ([facility])[address] CO2 [Moles/Vol] 21 mmol/L Low 22-29 [facility] Comment on above: Performed By: #### Elijah [address], LAB17, AXJ394 ####Chief Meteorologist: KEMAR ABEBE ([id number])[facility] [place] ([facility])[address] [place] [address] [place] Creatinine [Mass/Vol] 1.50 mg/dL Normal [facility] Comment on above: Performed By: #### L [id number], LAB17, MMI931 ####Chief Meteorologist: KEMAR ABEBE ([id number])[facility] ([facility])[address] GLOMERULAR FILTRATION RATE ML/MIN/1.73 SQ M.PREDICTED 40.5 mL/min/1.73m*2 Low >60.0 [facility] Comment on above: Result Comment: Calc ulation based on the Chronic Kidney Disease Epidemiology Collaboration (CKD-EPI) equation refit without adjustment for race Performed By: #### Elijah [address], LAB17, KTR676 ####Chief Meteorologist: KEMAR ABEBE ([id number])[facility] ([facility])[address] Glucose [Mass/Vol] 461 mg/dL Critically high 74-100 [facility] Comment on above: Performed By: #### Elijah RODRIGUEZ, LAB17, PFG555 ####Chief Meteorologist: KEMAR ABEBE ([id number])[facility] ([facility])[address] Potassium [Moles/Vol] 3.6 mmol/L Normal 3.5-5.1 [facility] Comment on above: Result Comment: [facility] potassium values may be up to 0.5 mmol/L lower than serum values. Performed By: #### Elijah RODRIGUEZ, LAB17, NCL179 ####Chief Meteorologist: KEMAR ABEBE ([phone])[facility] ([facility])[address] Protein [Mass/Vol] 6.8 g/dL Normal 6.4-8.3 [facility] Comment on above: Performed By: #### Elijah RODRIGUEZ, LAB17, AOQ001 ####Chief Meteorologist: KEMAR ABEBE ([phone])[facility] ([facility])[address] [place] [address] [place] Sodium [Moles/Vol] 133 mmol/L Low 136-145 [facility] Comment on above: Performed By: #### Elijah [id number], LAB17, RJQ475 ####Chief Meteorologist: KEMAR ABEBE ([phone])[facility] ([facility])[address] [place] [address] [place] Urea nitrogen [Mass/Vol] 48 mg/dL High 9-23 [facility] Comment on above: Performed By: #### L [id number], LAB17, KUY363 ####Chief Meteorologist: KEMAR ABEBE ([id number])[facility] ([facility])[address] [place] [address] CRP [Mass/Vol]on 10-20-2024 Interpretation and review of laboratory results Abnormal [facility] Comprehensive metabolic 1998 panelon 10-20-2024 Albumin [Mass/Vol] 2.8 g/dL Low 3.5 - 5.0 g/dL [facility] ALP [Catalytic activity/Vol] 155 U/L [facility] ALT [Catalytic activity/Vol] 53 U/L [facility] Anion gap [Moles/Vol] 14 mmol/L High 3 - 13 mmol/L [facility] AST [Catalytic activity/Vol] 20 U/L NINF - 34 U/L [facility] Bilirubin [Mass/Vol] 0.5 mg/dL NINF - 1.2 mg/dL [facility] Calcium [Mass/Vol] 9 mg/dL 8.4 - 10. 2 mg/dL [facility] Chloride [Moles/Vol] 98 mmol/L 98 - 10 7 mmol/L [facility] CO2 [Moles/Vol] 21 mmol/L Low 22 - 29 mmol/L [facility] Creatinine [Mass/Vol] 1.5 mg/dL [facility] GFR/1.73 sq M.predicted (S/P/Bld) [Vol rate/Area] 40.5 mL/min Low - PINF [facility] Comment on above: Calculation based on the Chronic Kidney Disease Epidemiology Collaboration (CKD-EPI) equation refit without adjustment for race Glucose [Mass/Vol] 461 mg/dL Critically high 74 - 1 00 mg/dL [facility] Interpretation and review of laboratory results Abnormal [facility] Potassium [Moles/Vol] 3.6 mmol/L 3.5 - 5.1 mmol/L [facility] Comment on above: Plasma potassium helen ues may be up to 0.5 mmol/L lower than serum values. Protein [Mass/Vol] 6.8 g/dL 6.4 - 8.3 g/dL [facility] Sodium [Moles/Vol] 133 mmol/L Low 136 - 145 mmol/L [facility] Urea nitrogen [Mass/Vol] 48 mg/dL High 9 - 23 mg/dL [facility] Consulton 10-20-2024 Consult Normal [facility] IRON AND TIBCon 10-20-2024 IRON BINDING CAPACITY 187 ug/dL Low 250-450 [facility] Comment on above: Performed By: #### L [id number] ####Chief Meteorologist: KEMAR ABEBE ([id number])[facility] ([facility])[address] IRON SATURATION 25.7 % Normal 20.0-50.0 [facility] Comment on above: Performed By: #### L AB829 ####Chief Meteorologist: KEMAR ABEBE ([id number])[facility] ([facility])[address] IRON, TOTAL 48 ug/dL Normal [facility] Comment on above: Performed By: #### L AB829 ####Chief Meteorologist: KEMAR ABEBE ([phone])[facility] ([facility])[address] Iron and Iron binding capaci ty panelon 10-20-2024 Interpretation and review of laboratory results Abnormal [facility] Iron [Mass/Vol] 48 ug/dL [facility] Iron binding capacity [Mass/Vol] 187 ug/dL Low 250 - 450 ug/dL [facility] Iron saturation [Mass fraction] 25.7 % 20.0 - 50.0 % [facility] - Chemistry and C hemistry - challengeon 10-20-2024 Glucose [Mass/Vol] 260 mg/dL High 70 - 100 mg/dL [facility] Glucose [Mass/Vol] 373 mg/dL High 70 - 100 mg/dL [facility] Glucose [Mass/Vol] 445 mg/dL High 70 - 100 mg/dL [facility] Glucose [Mass/Vol] 445 mg/dL High 70 - 100 mg/dL [facility] Procalcitonin [Mass/Vol] 2 ng/mL High NINF - 0.07 ng/mL [facility] CRP [Mass/Vol] 261.6 mg/L High NINF - 5.0 mg/L [facility] - Microbiology an d Antimicrobial susceptibilityOrdered By: Sagrario Clark on 10-20-2024 Bacteria identified Cx Nom (U) Insignificant growth based on current clinical guidelines [facility] No Panel Informationon 10-20 Interpretation and review of laboratory results Abnormal [facility], [address] [facility] [address] CLIA ID: [id number] [facility] Interpretation and review of laboratory results Abnormal [facility] Performed by: [facility], [address] [facility] [address] CLIA ID: [id number] [facility] Interpretation and review of laboratory results Abnormal [facility] Performed by: [facility], [address] [facility] [address] CLIA ID: [id number] [facility] Interpretation and review of laboratory results Abnormal [facility] Performed by: [facility], [address] [place] [address] CLIA ID: [id number] [facility] Nursing Noteon 10-20-2024 Nursing Note Report called to [address] [place] [address] for transfer. Normal [facility] Nursing Note Notified Lisa guerrero APRN and Dr. Thomas regarding patients BS. New orders placed. Normal [facility] PROCALCITONIN TESTon 024 PROCALCITONIN 2.00 ng/mL High <0.07 [facility] Comment on above: Result Comment: ORDE R COMMENTS:PCT <0.50 = Low risk of severe sepsis and/or septic shock.PCT >2.00 = High risk of severe sepsis and/or septic shock. Performed By: #### L [id number], LAB17, XQL248 ####Chief Meteorologist: KEMAR ABEBE ([id number])[facility] ([facility])[address] Procalcitonin [Mass/Vol]on 1 12-21-2023 Interpretation and review of laboratory results Abnormal [facility] PCT <0.50 = Low risk of severe sepsis and/or septic shock. PCT >2.00 = High risk of severe sepsis and/or septic shock. [facility] Progress Noteon 10-20-2024 Progress Note Normal [facility] Progress Note Normal [facility] Progress Note Normal [facility] Progress Note Normal [facility] Progress Note Nutrition rescreen completed. Patient is NPO/Clear liquid >3 days. Refer to Dietitian. Normal [facility] 30on 10-19-2024 30 Normal [facility] [id number] 10-19-2024 [id number] Normal [facility] 36on 10-19-2024 36 Needs to be seen for follow up with any provider, will need [facility] to arrange transportation so that patient can be seen in office ans no longer available to manage over the phone Normal [facility] CBC W Auto Differential pane l (Bld)on 10-19-2024 Erythrocyte distribution width (RBC) [Ratio] 14.5 % 11.5 - 15.0 % [facility] Hematocrit (Bld) [Volume fraction] 34.4 % Male: 40.0-52.0 ; Female: 35.0-47.0 [facility] Hemoglobin (Bld) [Mass/Vol] 10.9 g/dL Low 11.7 - 18.0 g/dL [facility] MCH (RBC) [Entitic mass] 27.7 pg 26.0 - 34.0 pg [facility] MCHC (RBC) [Mass/Vol] 31.7 % 30.5 - 36.0 % [facility] MCV (RBC) [Entitic vol] 87.3 fL 77.0 - 99.0 fL [facility] Platelet mean volume (Bld) [Entitic vol] 9.6 fL 9.0 - 12.7 fL [facility] Platelets (Bld) [#/Vol] 339 10*3/uL 140 - 440 10*3/uL [facility] RBC (Bld) [#/Vol] 3.94 10*6/uL Male: 4.40-5.90; Female: 3.80-5.20 [facility] WBC (Bld) [#/Vol] 21.8 10*3/uL High 3.6 - 10.7 10*3/uL [facility] CBC WITH AUTO DIFFERENTIALon 10-19-2024 Erythrocyte distribution width (RBC) [Ratio] 14.5 % Normal 11.5-15.0 [facility] Comment on above: Performed By: #### L [id number], [id number] ####Chief Meteorologist: KEMAR ABEBE ([id number])[facility] (SB[facility])[address] [place] [address] Hematocrit (Bld) [Volume fraction] 34.4 % Normal Male: 40.0-52.0 ; Female: 35.0-47.0 [facility] Comment on above: Performed By: #### L [id number], [id number] ####Chief Meteorologist: KEMAR ABEBE ([id number])[facility] [place] [address] Hemoglobin (Bld) [Mass/Vol] 10.9 g/dL Low 11.7-18.0 [facility] Comment on above: Performed By: #### L [id number], [id number] ####Chief Meteorologist: KEMAR ABEBE ([id number])[facility])[address] [place] [address] MCH (RBC) [Entitic mass] 27.7 pg Normal 26.0-34.0 [facility] Comment on above: Performed By: #### L [id number], [id number] ####Chief Meteorologist: KEMAR ABEBE ([id number])[facility] (HLAB)[address] [place] [address] MCHC 31.7 % Normal 30.5-36.0 [facility] Comment on above: Performed By: #### L [id number], [id number] ####Chief Meteorologist: KEMAR ABEBE ([id number])[facility] (SB[facility])[address] [place] [address] MCV (RBC) [Entitic vol] 87.3 fL Normal 77.0-99.0 [facility] Comment on above: Performed By: #### L [id number], [id number] ####Chief Meteorologist: KEMAR ABEBE ([id number])[facility]ITALWarren WADECARLSBAD MEDICAL CENTERJermaine (SBHLAB)[address] [place] [address] Platelet mean volume (Bld) [Entitic vol] 9.6 fL Normal 9.0-12.7 [facility] Comment on above: Performed By: #### L [id number], [id number] ####Chief Meteorologist: KEMAR ABEBE ([phone])[facility]ITAL[facility] [place] (SB[facility])[address] [place] [address] Platelets (Bld) [#/Vol] 339 10*3/uL Normal 140-440 [facility] Comment on above: Performed By: #### L [id number], [id number] ####Chief Meteorologist: KEMAR ABEBE ([id number])[facility] ([facility])[address] [place] [address] RBC (Bld) [#/Vol] 3.94 10*6/uL Normal Male: 4.40-5.90; Female: 3.80-5.20 [facility] Comment on above: Performed By: #### L [id number], [id number] ####Chief Meteorologist: KEMAR ABEBE ([id number])[facility] ([facility])[address] [place] [address] WBC (Bld) [#/Vol] 21.8 10*3/uL High 3.6-10.7 [facility] Comment on above: Performed By: #### L [id number], [id number] ####Chief Meteorologist: KEMAR ABEBE ([phone])[facility] ([facility])[address] COMPREHENSIVE METABOLIC PANE Gigi 10-19-2024 Albumin [Mass/Vol] 2.8 g/dL Low 3.5-5.0 [facility] Comment on above: Performed By: #### L AB17 ####Chief Meteorologist: KEMAR ABEBE ([id number])[facility] ([facility])[address] ALP [Catalytic activity/Vol] 151 U/L Normal [facility] Comment on above: Performed By: #### L AB17 ####Chief Meteorologist: KEMAR ABEBE ([phone])[facility] [place] ([facility])[address] [place] [address] [place] ALT [Catalytic activity/Vol] 83 U/L Normal [facility] Comment on above: Performed By: #### L [id number] ####Chief Meteorologist: KEMAR LUDWIGSAAD ([phone])[facility] ([facility] Anion gap [Moles/Vol] 11 mmol/L Normal 3-13 [facility] Comment on above: Performed By: #### L [id number] ####Chief Meteorologist: KEMAR ABEBE ([phone])[facility] ([facility])[address] AST [Catalytic activity/Vol] 50 U/L High <34 [facility] Comment on above: Performed By: #### L [id number] ####Chief Meteorologist: KEMAR ABEBE ([phone])[facility] (SBHLAB)[address] [place] [address] [place] Bilirubin [Mass/Vol] 0.8 mg/dL Normal <1.2 [facility] Comment on above: Performed By: #### L [id number] ####Chief Meteorologist: KEMAR ABEBE ([phone])[facility] ([facility])[address] [place] [address] [place] Calcium [Mass/Vol] 8.9 mg/dL Normal 8.4-10.2 [facility] Comment on above: Performed By: #### L [id number] ####Chief Meteorologist: KEMAR ABEBE ([phone])[facility] ([facility] [place] [address] [place] Chloride [Moles/Vol] 102 mmol/L Normal 98-107 [facility] Comment on above: Performed By: #### L [id number] ####Chief Meteorologist: KEMAR ABEBE ([phone])[facility] (HLAB)[address] CO2 [Moles/Vol] 22 mmol/L Normal 22-29 [facility] Comment on above: Performed By: #### L [id number] ####Chief Meteorologist: KEMAR ABEBE ([phone])[facility] (SBHLAB)[address] Creatinine [Mass/Vol] 1.15 mg/dL Normal [facility] Comment on above: Performed By: #### L [id number] ####Chief Meteorologist: KEMAR ABEBE ([phone])[facility] ([facility])[address] GLOMERULAR FILTRATION RATE ML/MIN/1.73 SQ M.PREDICTED 55.7 mL/min/1.73m*2 Low >60.0 [facility] Comment on above: Result Comment: Calc ulation based on the Chronic Kidney Disease Epidemiology Collaboration (CKD-EPI) equation refit without adjustment for race Performed By: #### L [id number] ####Chief Meteorologist: KEMAR ABEBE ([phone])[facility] Glucose [Mass/Vol] 223 mg/dL High 74-100 [facility] Comment on above: Performed By: #### L [id number] ####Chief Meteorologist: KEMAR ABEBE ([phone])[facility] [place] [address] [place] Potassium [Moles/Vol] 3.6 mmol/L Normal 3.5-5.1 [facility] Comment on above: Result Comment: [facility] potassium values may be up to 0.5 mmol/L lower than serum values. Performed By: #### L [id number] ####Chief Meteorologist: KEMAR ABEBE ([phone])[facility] (SBHLAB)[address] Protein [Mass/Vol] 6.5 g/dL Normal 6.4-8.3 [facility] Comment on above: Performed By: #### L AB17 ####Chief Meteorologist: KEMARDU MOMINHiginioSAAD ([phone])[facility] (SBHLAB)[address] Sodium [Moles/Vol] 135 mmol/L Low 136-145 [facility] Comment on above: Performed By: #### L AB17 ####Chief Meteorologist: KEMAR ANDRAE ([phone])[facility] ([facility])[address] Urea nitrogen [Mass/Vol] 32 mg/dL High 9-23 [facility] Comment on above: Performed By: #### L AB17 ####Chief Meteorologist: KEMAR LUDWIGSAAD ([phone])[facility] ([facility])[address] CULTURE ANAEROBICon 10-19-20 CULTURE ANAEROBIC Normal [facility] Comment on above: Performed By: #### L [id number] ####Chief Meteorologist: MARCELA LUCERO ([phone])[facility] ([facility])[address] [place] [address] [place] CULTURE ANAEROBIC Normal [facility] Comment on above: Order Comment: Colle cted during drain placement Performed By: #### L [id number] ####Chief Meteorologist: MARCELA LUCERO ([phone])[facility] ([facility] [place] [address] [place] CULTURE, AEROBIC BACTERIA WI TH GRAM STAINon 10-19-2024 CULTURE, AEROBIC BACTERIA WITH GRAM STAIN Normal [facility] Comment on above: Performed By: #### L [id number] ####Chief Meteorologist: MARCELA LUCERO ([phone])[facility] ([facility])[address] [place] [address] [place] CULTURE, AEROBIC BACTERIA WITH GRAM STAIN Normal [facility] Comment on above: Order Comment: Colle cted during drain placement Performed By: #### L [id number] ####Chief Meteorologist: MARCELA LUCERO ([phone])[facility] ([address] Comprehensive metabolic 1998 panelon 10-19-2024 Albumin [Mass/Vol] 2.8 g/dL Low 3.5 - 5.0 g/dL [facility] ALP [Catalytic activity/Vol] 151 U/L [facility] ALT [Catalytic activity/Vol] 83 U/L [facility] Anion gap [Moles/Vol] 11 mmol/L 3 - 13 mmol/L [facility] AST [Catalytic activity/Vol] 50 U/L High NINF - 34 U/L [facility] Bilirubin [Mass/Vol] 0.8 mg/dL NINF - 1.2 mg/dL [facility] Calcium [Mass/Vol] 8.9 mg/dL 8.4 - 10. 2 mg/dL [facility] Chloride [Moles/Vol] 102 mmol/L 98 - 10 7 mmol/L [facility] CO2 [Moles/Vol] 22 mmol/L 22 - 29 mmol/L [facility] Creatinine [Mass/Vol] 1.15 mg/dL [facility] GFR/1.73 sq M.predicted (S/P/Bld) [Vol rate/Area] 55.7 mL/min Low - PINF [facility] Comment on above: Calculation based on the Chronic Kidney Disease Epidemiology Collaboration (CKD-EPI) equation refit without adjustment for race Glucose [Mass/Vol] 223 mg/dL High 74 - 100 mg/dL [facility] Interpretation and review of laboratory results Abnormal [facility] Potassium [Moles/Vol] 3.6 mmol/L 3.5 - 5.1 mmol/L [facility] Comment on above: Plasma potassium helen ues may be up to 0.5 mmol/L lower than serum values. Protein [Mass/Vol] 6.5 g/dL 6.4 - 8.3 g/dL [facility] Sodium [Moles/Vol] 135 mmol/L Low 136 - 145 mmol/L [facility] Urea nitrogen [Mass/Vol] 32 mg/dL High 9 - 23 mg/dL [facility] Consulton 10-19-2024 Consult Normal [facility] Consult Normal [facility] Consult Normal [facility] Consult Normal [facility] HEMOGLOBIN A1Con 10-19-2024 Glucose [Mass/Vol] 151 mg/dL Normal [facility] Comment on above: Result Comment: MARIE Askew COMMENTS:HbA1c values of 5.7-6.4 percent indicate an increased risk for developing diabetes mellitus. HbA1c values greater than or equal to 6.5 percent are diagnostic of diabetes mellitus. For diagnosis of diabetes in individuals without unequivocal hyperglycemia, results should be confirmed by repeat testing. Performed By: #### L AB90 ####Chief Meteorologist: KEMAR ABEBE ([phone])[facility] ([facility])[address] [place] [address] HEMOGLOBIN A1C 6.9 %HbA1C High <5.7 [facility] Comment on above: Result Comment: Norm al less than 5.7%Prediabetes 5.7% to 6.4%Diabetes 6.5% or higher--HgbA1C levels may not be accurate in patients who have renal disease, received recent blood transfusions, are anemic, or who have dyshemoglobinemia. Performed By: #### L AB90 ####Chief Meteorologist: KEMAR ABEBE ([phone])[facility] ([facility])[address] [place] [address] Laboratory - Chemistry and C hemistry - challengeon 10-19-2024 Glucose [Mass/Vol] 396 mg/dL High 70 - 100 mg/dL [facility] Glucose [Mass/Vol] 374 mg/dL High 70 - 100 mg/dL [facility] Average glucose Estimated from glycated hemoglobin (Bld) [Mass/Vol] 151 mg/dL [facility] Glucose [Mass/Vol] 336 mg/dL High 70 - 100 mg/dL [facility] Glucose [Mass/Vol] 299 mg/dL High 70 - 100 mg/dL [facility] Glucose [Mass/Vol] 207 mg/dL High 70 - 100 mg/dL [facility] Laboratory - Coagulationon 1 12-20-2023 PT Coag (Bld) [Time] 14 s High 9.0 - 1 2.0 s [facility] Laboratory - Hematology and Cell countson 10-19-2024 HbA1c (Bld) [Mass fraction] 6.9 % High NINF [facility] Comment on above: Normal less than 5.7 % Prediabetes 5.7% to 6.4% Diabetes 6.5% or higher --HgbA1C levels may not be accurate in patients who have renal disease, received recent blood transfusions, are anemic, or who have dyshemoglobinemia. Lymphocytes (Bld) [#/Vol] 2.2 10*3/uL 1.0 - 4.3 10*3/uL [facility] Lymphocytes/100 WBC (Bld) 10 % Low 15 - 45 % [facility] Monocytes (Bld) [#/Vol] 0.2 10*3/uL 0.0 - 0.9 10*3/uL [facility] Monocytes/100 WBC (Bld) 1 % Low 5 - 13 % [facility] Neutrophils (Bld) [#/Vol] 19.4 10*3/uL High 1.8 - 7.5 10*3/uL [facility] RBC morphology finding Nom (Bld) Normal [facility] Segmented neutrophils/100 WBC (Bld) 89 % High 38 - 82 % [facility] Lower GI hemoglobin spec 1 I A Ql (Stl)Ordered By: Debbie Kearns on 10-19-2024 Fecal occult blood Positive Abnormal Negative [facility] Interpretation and review of laboratory results Abnormal [facility] Methodology: Immunoassay [facility] MANUAL DIFFERENTIAL (CELLAVI DORIAN)on 10-19-2024 BAND NEUTROPHILS TOTAL PER COUNTED LEUKOCYTES BY MANUAL COUNT [facility] Comment on above: Performed By: #### L [id number], [id number] ####Chief Meteorologist: KEMAR ABEBE ([phone])[facility] ([facility])[address] [place] [address] BASOPHILS TOTAL PER COUNTED LEUKOCYTES BY MANUAL COUNT Normal [facility] Comment on above: Performed By: #### L [id number], [id number] ####Chief Meteorologist: KEMAR ABEBE ([phone])[facility] (SBAB)[address] [place] [address] BLASTS TOTAL PER COUNTED LEUKOCYTES BY MANUAL COUNT Normal [facility] Comment on above: Performed By: #### L [id number], [id number] ####Chief Meteorologist: KEMAR ABEBE ([phone])[facility] (SBHLAB)[address] [place] [address] [place] EOSINOPHILS TOTAL PER COUNTED LEUKOCYTES BY MANUAL COUNT Normal [facility] Comment on above: Performed By: #### L [id number], [id number] ####Chief Meteorologist: KEMAR ABEBE ([phone])[facility] ([facility])[address] [place] [address] [place] LYMPHOCYTES (10*3/UL) IN BLOOD-CELLAVISION 2.2 10*3/uL Normal 1.0-4.3 [facility] Comment on above: Performed By: #### L [id number], [id number] ####Chief Meteorologist: KEMAR ABEBE ([phone])[facility] [place] ([facility])[address] LYMPHOCYTES TOTAL PER COUNTED LEUKOCYTES BY MANUAL COUNT 10 Normal [facility] Comment on above: Performed By: #### L [id number], [id number] ####Chief Meteorologist: KEMAR ABEBE ([phone])[facility] [place] ([facility])[address] [place] [address] [place] LYMPHOCYTES/100 LEUKOCYTES IN BLOOD-CELLAVISION 10 % Low 15-45 [facility] Comment on above: Performed By: #### L [id number], [id number] ####Chief Meteorologist: KEMAR ABEBE ([phone])[facility] [place] ([facility])[address] [place] [address] [place] METAMYELOCYTES TOTAL PER COUNTED LEUKOCYTES BY MANUAL COUNT Normal [facility] Comment on above: Performed By: #### L [id number], [id number] ####Chief Meteorologist: KEMAR ABEBE ([phone])[facility] [place] ([facility])[address] [place] [address] [place] MONOCYTES (10*3/UL) IN BLOOD-CELLAVISION 0.2 10*3/uL Normal 0.0-0.9 [facility] Comment on above: Performed By: #### L [id number], [id number] ####Chief Meteorologist: KEMAR ABEBE ([id number])[facility] ([facility])[address] [place] [address] [place] MONOCYTES TOTAL PER COUNTED LEUKOCYTES BY MANUAL COUNT 1 [facility] Comment on above: Performed By: #### L [id number], [id number] ####Chief Meteorologist: KEMAR ABEBE ([phone])[facility] [place] ([facility])[address] [place] [address] [place] MONOCYTES/100 LEUKOCYTES IN BLOOD-SOY 1 % Low 5-13 [facility] Comment on above: Performed By: #### L [id number], [id number] ####Chief Meteorologist: KEMAR ABEBE ([phone])[facility] [place] ([facility])[address] MYELOCYTES COUNTED BY MANUAL COUNT [facility] Comment on above: Performed By: #### L [id number], [id number] ####Chief Meteorologist: KEMAR ABEBE ([phone])[facility] (SBHLAB)[address] [place] [address] [place] NEUTROPHILS TOTAL PER COUNTED LEUKOCYTES BY MANUAL COUNT 89 [facility] Comment on above: Performed By: #### L [id number], [id number] ####Chief Meteorologist: KEMAR ABEBE ([phone])[facility] [place] ([facility])[address] [place] [address] [place] PROMYELOCYTES TOTAL PER COUNTED LEUKOCYTES BY MANUAL COUNT [facility] Comment on above: Performed By: #### L [id number], [id number] ####Chief Meteorologist: KEMAR ABEBE ([phone])[facility] [place] ([facility])[address] [place] [address] [place] RBC MORPHOLOGY IN BLOOD Normal [facility] Comment on above: Performed By: #### L [id number], [id number] ####Chief Meteorologist: KEMAR ABEBE ([phone])[facility] [place] ([facility])[address] [place] [address] [place] SEGMENTED NEUTROPHILS (10*3/UL) IN BLOOD-CELLAVISION 19.4 10*3/uL High 1.8-7.5 [facility] Comment on above: Performed By: #### L [id number], [id number] ####Chief Meteorologist: KEMAR ABEBE ([phone])[facility] ([facility])[address] [place] [address] SEGMENTED NEUTROPHILS/100 LEUKOCYTES-CE 89 % High 38-82 [facility] Comment on above: Performed By: #### L [id number], [id number] ####Chief Meteorologist: KEMAR ABEBE ([phone])[facility] (SB[facility])[address] [place] [address] UNCLASSIFIED CELLS TOTAL PER COUNTED LEUKOCYTES BY MANUAL COUNT Normal [facility] Comment on above: Performed By: #### L [id number], [id number] ####Chief Meteorologist: KEMAR ABEBE ([phone])[facility] ([facility])[address] [place] [address] VARIANT LYMPHOCYTES TOTAL PER COUNTED LEUKOCYTES BY MANUAL COUNT Normal [facility] Comment on above: Performed By: #### L [id number], [id number] ####Chief Meteorologist: KEMAR ABEBE ([phone])[facility] ([facility])[address] [place] [address] No Panel Informationon 10-19 Interpretation and review of laboratory results Abnormal [facility] Performed by: [facility], [address] [place] [address] CLIA ID: [id number] [facility] Interpretation and review of laboratory results Abnormal [facility] Performed by: [facility], [address] [place] [address] CLIA ID: [id number] [facility] Interpretation and review of laboratory results Abnormal [facility] HbA1c values of 5.7- 6.4 percent indicate an increased risk for developing diabetes mellitus. HbA1c values greater than or equal to 6.5 percent are diagnostic of diabetes mellitus. For diagnosis of diabetes in individuals without unequivocal hyperglycemia, results should be confirmed by repeat testing. [facility] Interpretation and review of laboratory results Abnormal [facility] Performed by: [facility], [address] [place] [address] CLIA ID: [id number] [facility] Interpretation and review of laboratory results Abnormal [facility] Performed by: [facility], [address] [address] CLIA ID: [id number] [facility] Atypical Lymphocytes Manual [facility] Bands Manual [facility] Basophils Manual [facility] Blasts Manual [facility] Eosinophils Manual [facility] Interpretation and review of laboratory results Abnormal [facility] Lymphocytes Manual 10 [facility] Metamyelocytes Manual [facility] Monocytes Manual 1 [facility] Myelocytes Manual [facility] Neutrophils Manual 89 [facility] Promyelocytes Manual [facility] Unclassified Cells, Manual [facility] Interpretation and review of laboratory results Abnormal [facility] Performed by: [facility], [address] [place] [address] CLIA ID: [id number] [facility] OCCULT BLOOD, STOOLon 2023 OCCULT BLOOD, STOOL FECAL OCCULT, STOOL (A) Reference Positive Negative ORDER COMMENTS: (A) Methodology: Immunoassay Normal [facility] Comment on above: Performed By: #### L [id number] ####Chief Meteorologist: KEMAR ABEBE ([phone])[facility] [place] [address] PROTHROMBIN TIMEon INR Coag (PPP) [Relative time] 1.3 {INR} High 0.9-1.1 [facility] Comment on above: Result Comment: Ubaldo mmended Anticoagulant Therapy: SEE BELOW----- INR of 2.0 - 3.0 : - Prophylaxis of Venous Thrombosis (high-risk surgery) - Treatment of Venous Thrombosis - Treatment of Pulmonary Embolism (Includes tissue heart valves, Acute Myocardial Infarction to prevent systemic embolism, Valvular Heart Disease, and Atrial Fibrillation)----- INR of 2.5 - 3.5 : - Mechanical Prosthetic Valves (high risk) - If oral anticoagulant therapy is used to prevent Myocardial Infarction Performed By: #### L [id number] ####Chief Meteorologist: KEMAR ABEBE ([phone])[facility] ([facility])[address] PT Coag (PPP) [Time] 14.0 s High 9.0-12.0 [facility] Comment on above: Performed By: #### L [id number] ####Chief Meteorologist: KEMAR MOMIN-SAAD ([phone])[facility] ([facility])[address] PT Coag (Bld) [Time]on 10-19 INR Coag (PPP) [Relative time] 1.3 {INR} High 0.9 - 1.1 [facility] Comment on above: Recommended Anticoag ulant Therapy: SEE BELOW ----- INR of 2.0 - 3.0 : - Prophylaxis of Venous Thrombosis (high-risk surgery) - Treatment of Venous Thrombosis - Treatment of Pulmonary Embolism (Includes tissue heart valves, Acute Myocardial Infarction to prevent systemic embolism, Valvular Heart Disease, and Atrial Fibrillation) ----- INR of 2.5 - 3.5 : - Mechanical Prosthetic Valves (high risk) - If oral anticoagulant therapy is used to prevent Myocardial Infarction Interpretation and review of laboratory results Abnormal [facility] Progress Noteon 10-19-2024 Progress Note Normal [facility] Progress Note Normal [facility] US GUIDED PERCUTANEOUS PERIT HARRY OR RETROPERITONEAL FLUID COLLECTION DRAINAGEon 10-19-2024 US GUIDED PERCUTANEOUS PERITONEAL OR RETROPERITONEAL FLUID COLLECTION DRAINAGE Normal [facility] US Guidance for biopsy of Un specified body regionon 10-19-2024 Successful placement of a drainage catheter into the gallbladder using ultrasound guidance. Report Dictated on Electronically Signed By: Alfredito Baumann MD Electronically Signed Date/Time: 10/19/2024 2:22 PM [facility] Patient Name: WILL ALVARADO : 1965 Exam Date/Time: 10/19/2024 13:34 Procedure: US GUIDED PERCUTANEOUS PERITONEAL OR RETROPERITONEAL FLUID COLLECTION DRAINAGE Ordering Provider: CRESPO ALAINA Reason For Exam: US guided cholecystostomy drain placement for acute cholecystitis Ultrasound-guided gallbladder drainage catheter placement The benefits and risks of the procedure were discussed with the patient. The patient agreed to proceed. Conscious Sedation: An independent trained nurse under my supervision monitored the patient during the procedure and administered 1 mg of Versed and 50 ug of Fentanyl intravenously. The monitoring time was 30 minutes. Sterile technique was utilized. The skin was cleaned with 2% chlorhexidine. Sterile drapes were placed. I washed my hands prior to the procedure. I wore a cap, mask, sterile gown and sterile gloves during the procedure. Lidocaine was applied for local anesthesia. Using ultrasound guidance, 18-gauge needle was inserted from an anterior approach into the gallbladder. Bile was aspirated. A specimen was submitted for Gram stain and culture. Wire was advanced. Subcutaneous tract was dilated. An 8 [place] drainage catheter advanced over the wire. The catheter was attached to a bag. A dressing was applied. [facility] Alfredito Baumann MD - 10/19/2024 [facility] 1965 [id number] Exam Date/Time: 10/19/2024 13:34 Procedure: US GUIDED PERCUTANEOUS PERITONEAL OR RETROPERITONEAL FLUID COLLECTION DRAINAGE Ordering Provider: CRESPO ALAINA Reason For Exam: US guided cholecystostomy drain placement for acute cholecystitis Ultrasound-guided gallbladder drainage catheter placement The benefits and risks of the procedure were discussed with the patient. The patient agreed to proceed. Conscious Sedation: An independent trained nurse under my supervision monitored the patient during the procedure and administered 1 mg of Versed and 50 ug of Fentanyl intravenously. The monitoring time was 30 minutes. Sterile technique was utilized. The skin was cleaned with 2% chlorhexidine. Sterile drapes were placed. I washed my hands prior to the procedure. I wore a cap, mask, sterile gown and sterile gloves during the procedure. Lidocaine was applied for local anesthesia. Using ultrasound guidance, 18-gauge needle was inserted from an anterior approach into the gallbladder. Bile was aspirated. A specimen was submitted for Gram stain and culture. Wire was advanced. Subcutaneous tract was dilated. An 8 [place] drainage catheter advanced over the wire. The catheter was attached to a bag. A dressing was applied. IMPRESSION: Successful placement of a drainage catheter into the gallbladder using ultrasound guidance. Report Dictated on Electronically Signed By: Alfredito Baumann MD Electronically Signed Date/Time: 10/19/2024 2:22 PM EST [facility] Radiology Study observation (narrative) [facility] US Guidance for biopsy of Un specified body regionOrdered By: Alfredito Baumann on 10-19-2024 [facility] Work Phone: Urinalysis complete panel (U )Ordered By: Jyoti Cartwright on 10-19-2024 Amorphous Crystals, Urine Few Abnormal Negative /HPF [facility] Bacteria LM.HPF (Urine sed) [#/Area] Few Abnormal Negative /HPF [facility] Bilirubin Ql (U) Negative Negative mg/dL [facility] Clarity (U) Turbid Abnormal Clear [facility] Color (U) Yellow Lt. Yellow [facility] Epithelial cells.squamous LM.HPF (Urine sed) [#/Area] 0-2 [facility] Glucose Ql (U) Normal Normal (<70) mg/dL [facility] Granular casts LM.HPF (Urine sed) [#/Area] 3-5 Abnormal Negative /LPF [facility] Hemoglobin Ql (U) 0.2 mg/dL Abnormal Negative [facility] Hyaline casts Auto (Urine sed) [#/Area] 3-5 Abnormal Negative /LPF [facility] Interpretation and review of laboratory results Abnormal [facility] Ketones (U) [Mass/Vol] Negative Negat bernard mg/dL [facility] Leukocyte clumps LM.HPF (Urine sed) [#/Area] Rare Abnormal Negative /HPF [facility] Leukocyte esterase Test strip Ql (U) 500 Abnormal Negative Kat/uL [facility] Mucus LM.HPF (Urine sed) [#/Area] Few Negative /LPF [facility] Nitrite Ql (U) Negative Negative [facility] Non-Squamous Epithalial Cells, Urine 0-2 Abnormal Negative /HPF [facility] pH (U) 5.5 [pH] 5.0 - 8.0 pH [facility] Protein (U) [Mass/Vol] 50 mg/dL Abnormal Negative [facility] RBC LM.HPF (Urine sed) [#/Area] 11-25 Abnormal [facility] Specific gravity (U) [Rel density] High 1.005 - 1.030 [facility] Urobilinogen (U) [Mass/Vol] Normal Normal (0-1) mg/dL [facility] WBC LM.HPF (Urine sed) [#/Area] 51-100 Abnormal [facility] CBC W Auto Differential pane l (Bld)Ordered By: Siliva oBne on 10-18-2024 Erythrocyte distribution width (RBC) [Ratio] 14.5 % 11.5 - 15.0 % [facility] Hematocrit (Bld) [Volume fraction] 36.8 % Male: 40.0-52.0 ; Female: 35.0-47.0 [facility] Hemoglobin (Bld) [Mass/Vol] 11.6 g/dL Low 11.7 - 18.0 g/dL [facility] Interpretation and review of laboratory results Abnormal [facility] MCH (RBC) [Entitic mass] 27.1 pg 26.0 - 34.0 pg [facility] MCHC (RBC) [Mass/Vol] 31.5 % 30.5 - 36.0 % [facility] MCV (RBC) [Entitic vol] 86 fL 77.0 - 99.0 fL [facility] Platelet mean volume (Bld) [Entitic vol] 9.8 fL 9.0 - 12.7 fL [facility] Platelets (Bld) [#/Vol] 373 10*3/uL 140 - 440 10*3/uL [facility] RBC (Bld) [#/Vol] 4.28 10*6/uL Male: 4.40-5.90; Female: 3.80-5.20 [facility] WBC (Bld) [#/Vol] 25.9 10*3/uL High 3.6 - 10.7 10*3/uL [facility] CBC WITH AUTO DIFFERENTIALon 10-18-2024 Erythrocyte distribution width (RBC) [Ratio] 14.5 % Normal 11.5-15.0 [facility] Comment on above: Performed By: #### L [id number], [id number] ####Chief Meteorologist: KEMAR ABEBE ([phone])[facility] ([facility])[address] [place] [address] Hematocrit (Bld) [Volume fraction] 36.8 % Normal Male: 40.0-52.0 ; Female: 35.0-47.0 [facility] Comment on above: Performed By: #### L [id number], [id number] ####Chief Meteorologist: KEMAR BANUELOSCER ([phone])[facility]ENTER[facility] (SBHLAB)[address] Hemoglobin (Bld) [Mass/Vol] 11.6 g/dL Low 11.7-18.0 [facility] Comment on above: Performed By: #### L [id number], [id number] ####Chief Meteorologist: KEMAR ABEBE ([phone])[facility] [place] (SBHLAB)[address] MCH (RBC) [Entitic mass] 27.1 pg Normal 26.0-34.0 [facility] Comment on above: Performed By: #### L [id number], [id number] ####Chief Meteorologist: KEMAR ULDWIGSAAD ([phone])[facility] (HLAB)[address] MCHC 31.5 % Normal 30.5-36.0 [facility] Comment on above: Performed By: #### L [id number], [id number] ####Chief Meteorologist: KEMAR ABEBE ([phone])[facility] [place] (SB[facility])[address] MCV (RBC) [Entitic vol] 86.0 fL Normal 77.0-99.0 [facility] Comment on above: Performed By: #### L [id number], [id number] ####Chief Meteorologist: KEMAR ABEBE ([phone])[facility] [place] (SB[facility])[address] Platelet mean volume (Bld) [Entitic vol] 9.8 fL Normal 9.0-12.7 [facility] Comment on above: Performed By: #### L [id number], [id number] ####Chief Meteorologist: KEMAR ABEBE ([phone])[facility] [place] ([facility])[address] Platelets (Bld) [#/Vol] 373 10*3/uL Normal 140-440 [facility] Comment on above: Performed By: #### L PE6163, [id number] ####Chief Meteorologist: KEMAR ABEBE ([phone])[facility] [place] ([facility])[address] RBC (Bld) [#/Vol] 4.28 10*6/uL Normal Male: 4.40-5.90; Female: 3.80-5.20 [facility] Comment on above: Performed By: #### L AS9154, [id number] ####Chief Meteorologist: KEMAR ABEBE ([phone])[facility] [place] ([facility])[address] [place] [address] WBC (Bld) [#/Vol] 25.9 10*3/uL High 3.6-10.7 [facility] Comment on above: Performed By: #### L [id number], [id number] ####Chief Meteorologist: KEMAR ABEBE ([phone])[facility] [place] ([facility])[address] [place] [address] COMPLETE URINALYSISon 2023 AMORPHOUS CRYSTALS (#/HPF) IN URINE Few Abnormal Negative [facility] Comment on above: Performed By: #### L [id number] ####Chief Meteorologist: MARCELA LUCERO ([phone])[facility] ([facility])[address] [place] [address]#### [id number] ####Chief Meteorologist: KEMAR ABEBE ([phone])[facility] [place] ([facility])[address] [place] [address] BACTERIA (#/HPF) IN URINE Few Abnormal Negative [facility] Comment on above: Performed By: #### L AB239 ####Chief Meteorologist: MARCELA LUCERO ([phone])[facility] ([facility])[address] [place] [address]#### [id number] ####Chief Meteorologist: KEMAR ABEBE ([phone])[facility] [place] ([facility])[address] [place] [address] BILIRUBIN, TOTAL PRESENCE IN URINE Negative Normal Negative [facility] Comment on above: Performed By: #### L AB239 ####Chief Meteorologist: MARCELA LUCERO ([phone])[facility] ([facility])[address] [place] [address]#### [id number] ####Chief Meteorologist: KEMAR ABEBE ([phone])[facility] ([facility])[address] [place] [address] Clarity (U) Turbid Abnormal Clear [facility] Comment on above: Performed By: #### L AB239 ####Chief Meteorologist: MARCELA LUCERO ([phone])[facility] ([facility])[address] [place] [address]#### [id number] ####Chief Meteorologist: KEMAR ABEBE ([phone])[facility]ITALJ[facility] (SBHLAB)[address] [place] [address] Color (U) Yellow Normal Lt. Yellow [facility] Comment on above: Performed By: #### L AB239 ####Chief Meteorologist: MARCELA LUCERO ([phone])[facility] ([facility])[address] [place] [address]#### [id number] ####Chief Meteorologist: KEMAR ABEBE ([phone])[facility] ([facility])[address] [place] [address] GLUCOSE (MG/DL) IN URINE Normal Normal Normal (<70) [facility] Comment on above: Performed By: #### L AB239 ####Chief Meteorologist: MARCELA LUCERO ([phone])[facility] ([facility])[address] [place] [address]#### [id number] ####Chief Meteorologist: KEMAR ABEBE ([phone])[facility] ([facility])[address] [place] [address] GRANULAR CASTS (#/LPF) IN URINE 3-5 Abnormal Negative [facility] Comment on above: Performed By: #### L AB239 ####Chief Meteorologist: MARCELA LUCERO ([phone])[facility] ([facility])[address] [place] [address]#### [id number] ####Chief Meteorologist: KEMAR ABEBE ([phone])[facility] (SBAB)[address] [place] [address] HEMOGLOBIN PRESENCE IN URINE 0.2 mg/dL Abnormal Negative [facility] Comment on above: Performed By: #### L [id number] ####Chief Meteorologist: MARCELA LUCERO ([phone])[facility] ([facility])[address] [place] [address]#### [id number] ####Chief Meteorologist: KEMAR ABEBE ([phone])[facility] ([facility])[address] [place] [address] HYALINE CASTS (#/LPF) IN URINE SEDIMENT BY MICROSCOPY 3-5 Abnormal Negative [facility] Comment on above: Performed By: #### L AB239 ####Chief Meteorologist: MARCELA LUCERO ([phone])[facility] ([facility])[address] [place] [address]#### [id number] ####Chief Meteorologist: KEMAR ABEBE ([phone])[facility] ([facility])[address] [place] [address] Ketones Ql (U) Negative Normal Negative [facility] Comment on above: Performed By: #### L [id number] ####Chief Meteorologist: MARCELA LUCERO ([phone])[facility] ([facility])[address] [place] [address] [place]#### [id number] ####Chief Meteorologist: KEMAR ABEBE ([phone])[facility] ([facility])[address] [place] [address] LEUKOCYTE ESTERASE PRESENCE IN URINE BY TEST STRIP 500 Kat/uL Abnormal Negative [facility] Comment on above: Performed By: #### L [id number] ####Chief Meteorologist: MARCELA LUCERO ([phone])[facility] ([facility])[address] [place] [address]#### [id number] ####Chief Meteorologist: KEMAR ABEBE ([phone])[facility])[address] [place] [address] MUCUS (#/LPF) IN URINE SEDIMENT Few Normal Negative [facility] Comment on above: Performed By: #### L AB239 ####Chief Meteorologist: MARCELA LUCERO ([phone])[facility] ([facility])[address] [place] [address]#### [id number] ####Chief Meteorologist: KEMAR ABEBE ([phone])[facility])[address] [place] [address] NITRITE PRESENCE IN URINE Negative Normal Negative [facility] Comment on above: Performed By: #### L [id number] ####Chief Meteorologist: MARCELA LUCERO ([phone])[facility] ([facility])[address] [place] [address]#### [id number] ####Chief Meteorologist: KEMAR ABEBE ([phone])[facility])[address] [place] [address] NON-SQUAMOUS EPITHELIAL (#/HPF) IN URINE 0-2 Abnormal Negative [facility] Comment on above: Performed By: #### L [id number] ####Chief Meteorologist: MARCELA LUCERO ([phone])[facility] ([facility])[address] [place] [address]#### [id number] ####Chief Meteorologist: KEMAR ABEBE ([phone])[facility] ([facility])[address] [place] [address] pH (U) 5.5 [pH] Normal 5.0-8.0 [facility] Comment on above: Performed By: #### L [id number] ####Chief Meteorologist: MARCELA LUCERO ([phone])[facility] ([facility])[address]#### [id number] ####Chief Meteorologist: KEMAR ABEBE ([phone])[facility] [place] (SB[facility])[address] [place] [address] Protein (U) [Mass/Vol] 50 mg/dL Abnormal Negative [facility] Comment on above: Performed By: #### L AB239 ####Chief Meteorologist: MARCELA LUCERO ([phone])[facility] ([facility])[address] [place] [address]#### [id number] ####Chief Meteorologist: KEMAR ABEBE ([phone])[facility])[address] [place] [address] RBC (#/HPF) IN URINE SEDIMENT 11-25 Abnormal 0-2 [facility] Comment on above: Performed By: #### L [id number] ####Chief Meteorologist: MARCELA LUCERO ([phone])[facility] ([facility])[address] [place] [address]#### [id number] ####Chief Meteorologist: KEMAR ABEBE ([phone])[facility] ([facility])[address] [place] [address] Specific gravity (U) [Rel density] >1.030 High 1.005-1.030 [facility] Comment on above: Performed By: #### L [id number] ####Chief Meteorologist: MARCELA LUCERO ([phone])[facility] ([facility])[address] [place] [address]#### [id number] ####Chief Meteorologist: KEMAR ABEBE ([phone])[facility])[address] [place] [address] SQUAMOUS EPITHELIAL CELLS (#/HPF) IN URINE SEDIMENT 0-2 Normal 3-5 [facility] Comment on above: Performed By: #### L [id number] ####Chief Meteorologist: MARCELA LUCERO ([phone])[facility] ([facility])[address] [place] [address]#### [id number] ####Chief Meteorologist: KEMAR ABEBE ([phone])[facility] ([facility])[address] [place] [address] UROBILINOGEN (MG/DL) IN URINE Normal Normal Normal (0-1) [facility] Comment on above: Performed By: #### L [id number] ####Chief Meteorologist: MARCELA LUCERO ([phone])[facility] ([facility])[address] [place] [address]#### [id number] ####Chief Meteorologist: KEMAR ABEBE ([phone])[facility] ([facility])[address] [place] [address] WBC (LEUKOCYTE) (#/HPF) IN URINE SEDIMENT 51-100 Abnormal 0-5 [facility] Comment on above: Performed By: #### L [id number] ####Chief Meteorologist: MARCELA LUCERO ([phone])[facility] ([facility])[address] [place] [address]#### [id number] ####Chief Meteorologist: KEMAR ABEBE ([phone])[facility] ([facility])[address] [place] [address] WBC (LEUKOCYTE) CLUMPS (#/HPF) IN URINE SEDIMENT Rare Abnormal Negative [facility] Comment on above: Performed By: #### L [id number] ####Chief Meteorologist: MARCELA LUCERO ([phone])[facility] ([facility])[address] [place] [address]#### [id number] ####Chief Meteorologist: KEMAR ABEBE ([phone])[facility] ([facility])[address] [place] [address] [address]PREHENSIVE METABOLIC PANE Gigi 10-18-2024 Albumin [Mass/Vol] 3.0 g/dL Low 3.5-5.0 [facility] Comment on above: Performed By: #### L AB17, LAB99, [id number] ####Chief Meteorologist: KEMAR ABEBE ([phone])[facility] [place] ([facility])[address] ALP [Catalytic activity/Vol] 133 U/L Normal [facility] Comment on above: Performed By: #### Elijah OJEDA17, LAB99, [id number] ####Chief Meteorologist: KEMAR ABEBE ([phone])[facility] (SB[facility])[address] ALT [Catalytic activity/Vol] 67 U/L Normal [facility] Comment on above: Performed By: #### Elijah ABOsmin, LAB99, [id number] ####Chief Meteorologist: KEMAR ABEBE ([phone])[facility] ([facility])[address] Anion gap [Moles/Vol] 13 mmol/L Normal 3-13 [facility] Comment on above: Performed By: #### Elijah MENDOZA, LAB99, [id number] ####Chief Meteorologist: KEMAR ABEBE ([phone])[facility] ([facility])[address] AST [Catalytic activity/Vol] 50 U/L High <34 [facility] Comment on above: Performed By: #### Elijah MENDOZA, LAB99, [id number] ####Chief Meteorologist: KEMAR ABEBE ([phone])[facility] ([facility])[address] Bilirubin [Mass/Vol] 0.7 mg/dL Normal <1.2 [facility] Comment on above: Performed By: #### Elijah MENDOZA, LAB99, [id number] ####Chief Meteorologist: KEMAR ABEBE ([phone])[facility] ([facility])[address] Calcium [Mass/Vol] 9.0 mg/dL Normal 8.4-10.2 [facility] Comment on above: Performed By: #### Elijah MENDOZA, LAB99, [id number] ####Chief Meteorologist: KEMAR ABEBE ([phone])[facility] [place] ([facility])[address] [place] [address] [place] Chloride [Moles/Vol] 103 mmol/L Normal 98-107 [facility] Comment on above: Performed By: #### Elijah OJEDA17, LAB99, [id number] ####Chief Meteorologist: KEMAR ABEBE ([phone])[facility] [place] ([facility])[address] [place] [address] [place] CO2 [Moles/Vol] 21 mmol/L Low 22-29 [facility] Comment on above: Performed By: #### Elijah MENDOZA, LAB99, [id number] ####Chief Meteorologist: KEMAR ABEBE ([phone])[facility] [place] ([facility])[address] Creatinine [Mass/Vol] 1.16 mg/dL Normal [facility] Comment on above: Performed By: #### Elijah MENDOZA, LAB99, [id number] ####Chief Meteorologist: KEMAR ABEBE ([phone])[facility] [place] ([facility])[address] [place] [address] [place] GLOMERULAR FILTRATION RATE ML/MIN/1.73 SQ M.PREDICTED 55.1 mL/min/1.73m*2 Low >60.0 [facility] Comment on above: Result Comment: Calc ulation based on the Chronic Kidney Disease Epidemiology Collaboration (CKD-EPI) equation refit without adjustment for race Performed By: #### Elijah MENDOZA, LAB99, [id number] ####Chief Meteorologist: KEMAR ABEBE ([phone])[facility] [place] ([facility])[address] [place] [address] [place] Glucose [Mass/Vol] 226 mg/dL High 74-100 [facility] Comment on above: Performed By: #### Elijah OJEDA17, LAB99, [id number] ####Chief Meteorologist: KEMAR ABEBE ([phone])[facility] [place] ([facility])[address] [place] [address] [place] Potassium [Moles/Vol] 4.1 mmol/L Normal 3.5-5.1 [facility] Comment on above: Result Comment: [facility] potassium values may be up to 0.5 mmol/L lower than serum values. Performed By: #### L AB17, LAB99, [id number] ####Chief Meteorologist: KEMARDU ABEBE ([id number])[facility] ([facility])[address] Protein [Mass/Vol] 6.7 g/dL Normal 6.4-8.3 [facility] Comment on above: Performed By: #### L AB17, LAB99, [id number] ####Chief Meteorologist: KEMAR ANDRAE ([phone])[facility] [place] ([facility])[address] Sodium [Moles/Vol] 137 mmol/L Normal 136-145 [facility] Comment on above: Performed By: #### L AB17, LAB99, [id number] ####Chief Meteorologist: KEMAR ANDRAE ([phone])[facility] ([facility])[address] Urea nitrogen [Mass/Vol] 24 mg/dL High 9-23 [facility] Comment on above: Performed By: #### L AB17, LAB99, [id number] ####Chief Meteorologist: KEMAR ANDRAE ([phone])[facility] ([facility])[address] ABDOMEN PELVIS W CONTRAST on 10-18-2024 CT ABDOMEN PELVIS W CONTRAST Normal [facility] CT Abdomen and Pelvis W cont rast Erica 10-18-2024 Distended gallbladde r with suspected gallbladder wall edema concerning for acute cholecystitis. Distended stomach with air-fluid level may be related. Please correlate clinically. Follow-up recommended. CTR Dr Woodall. Report Dictated on Electronically Signed By: Javy Urias MD Electronically Signed Date/Time: 10/18/2024 7:12 PM [facility] Patient Name: WILL ALVARADO : 1965 Exam Date/Time: 10/18/2024 17:21 Procedure: CT ABDOMEN PELVIS W CONTRAST Ordering Provider: WOODALL FELIX Reason For Exam: Abdominal pain and distention with vomiting Indication: Abdominal pain vomiting. FINDINGS: Unenhanced abdomen pelvis with 75 mL Isovue-370 performed. Dose reduction and automated exposure control utilized. No free air. Distended stomach with air-fluid level. Bowel otherwise nondistended. Limited bowel assessment, lack of oral contrast. No convincing pneumatosis or abscess. Appendix not confidently seen. The gallbladder appears markedly distended with some suspected wall edema within limits of the study including artifact from motion, crisscross artifact. No convincing active disease of liver, the pancreas, spleen kidneys, adrenals, urinary bladder. No adenopathy. No definite aneurysm. No spinal compression. [facility] Javy Urias MD - 10/18/2024 Patient Name: WILL JACINTO : 1965 Exam Date/Time: 10/18/2024 17:21 Procedure: CT ABDOMEN PELVIS W CONTRAST Ordering Provider: WOODALL FELIX Reason For Exam: Abdominal pain and distention with vomiting Indication: Abdominal pain vomiting. FINDINGS: Unenhanced abdomen pelvis with 75 mL Isovue-370 performed. Dose reduction and automated exposure control utilized. No free air. Distended stomach with air-fluid level. Bowel otherwise nondistended. Limited bowel assessment, lack of oral contrast. No convincing pneumatosis or abscess. Appendix not confidently seen. The gallbladder appears markedly distended with some suspected wall edema within limits of the study including artifact from motion, crisscross artifact. No convincing active disease of liver, the pancreas, spleen kidneys, adrenals, urinary bladder. No adenopathy. No definite aneurysm. No spinal compression. IMPRESSION: Distended gallbladder with suspected gallbladder wall edema concerning for acute cholecystitis. Distended stomach with air-fluid level may be related. Please correlate clinically. Follow-up recommended. CTR Dr Woodall. Report Dictated on Electronically Signed By: Javy Uiras MD Electronically Signed Date/Time: 10/18/2024 7:12 PM [facility] Radiology Study observation (narrative) [facility] Chest vessels WO and W c ontrast Erica 10-18-2024 Impression:Very limi laura due to motion.. Consider repeat exam or VQ scan for persistent symptoms. Note made of distended stomach with air-fluid level. Report Dictated on Electronically Signed By: Javy Urias MD Electronically Signed Date/Time: 10/18/2024 7:05 PM [facility] Patient Name: WILL ALVARADO : 1965 Exam Date/Time: 10/18/2024 17:20 Procedure: CT CHEST ANGIOGRAM W AND/OR WO IV CONTRAST Ordering Provider: WOODALL FELIX Reason For Exam: Chest pain, shortness of breath, rule out pulmonary balloon History: Chest discomfort. Comparison: 06/28/2023 Findings: Dose reduction was employed with automated exposure control. Enhanced imaging of the chest was performed with 1 mm slices from neck to upper abdomen. 75 cc isovue 370 utilized. Additional images: 3-D imaging created and reviewed on independent platform for better detection of pathology. Exam is very limited due to severe motion artifact. Airway:Grossly patent. Mediastinum and great vessels: Limited due to motion. No large central PE visualized. Coronary arteries:No significant calcification. .No convincing emergent adenopathy within limits of the study. LUNGS:No convincing major volume loss. Very limited. Stable nodule right lung approximately 8mm; limited assessment due to artifact. Spine: No convincing acute or occult process.. Upper abdomen: Distended stomach with air-fluid level. Significance uncertain.. [facility] Javy Urias MD - 10/18/2024 Patient Name: WILL JACINTO : 1965 Exam Date/Time: 10/18/2024 17:20 Procedure: CT CHEST ANGIOGRAM W AND/OR WO IV CONTRAST Ordering Provider: WOODALL FELIX Reason For Exam: Chest pain, shortness of breath, rule out pulmonary balloon History: Chest discomfort. Comparison: 06/28/2023 Findings: Dose reduction was employed with automated exposure control. Enhanced imaging of the chest was performed with 1 mm slices from neck to upper abdomen. 75 cc isovue 370 utilized. Additional images: 3-D imaging created and reviewed on independent platform for better detection of pathology. Exam is very limited due to severe motion artifact. Airway:Grossly patent. Mediastinum and great vessels: Limited due to motion. No large central PE visualized. Coronary arteries:No significant calcification. .No convincing emergent adenopathy within limits of the study. LUNGS:No convincing major volume loss. Very limited. Stable nodule right lung approximately 8mm; limited assessment due to artifact. Spine: No convincing acute or occult process.. Upper abdomen: Distended stomach with air-fluid level. Significance uncertain.. IMPRESSION: Impression:Very limited due to motion.. Consider repeat exam or VQ scan for persistent symptoms. Note made of distended stomach with air-fluid level. Report Dictated on Electronically Signed By: Javy Urias MD Electronically Signed Date/Time: 10/18/2024 7:05 PM EST [facility] Radiology Study observation (narrative) [facility] CTA Chest vessels WO and W c ontrast IVOrdered By: Javy Urias on 10-18-2024 [facility] Work Phone: Comprehensive metabolic 1998 panelon 10-18-2024 Albumin [Mass/Vol] 3 g/dL Low 3.5 - 5.0 g/dL [facility] ALP [Catalytic activity/Vol] 133 U/L [facility] ALT [Catalytic activity/Vol] 67 U/L [facility] Anion gap [Moles/Vol] 13 mmol/L 3 - 13 mmol/L [facility] AST [Catalytic activity/Vol] 50 U/L High NINF - 34 U/L [facility] Bilirubin [Mass/Vol] 0.7 mg/dL NINF - 1.2 mg/dL [facility] Calcium [Mass/Vol] 9 mg/dL 8.4 - 10. 2 mg/dL [facility] Chloride [Moles/Vol] 103 mmol/L 98 - 10 7 mmol/L [facility] CO2 [Moles/Vol] 21 mmol/L Low 22 - 29 mmol/L [facility] Creatinine [Mass/Vol] 1.16 mg/dL [facility] GFR/1.73 sq M.predicted (S/P/Bld) [Vol rate/Area] 55.1 mL/min Low - PINF [facility] Comment on above: Calculation based on the Chronic Kidney Disease Epidemiology Collaboration (CKD-EPI) equation refit without adjustment for race Glucose [Mass/Vol] 226 mg/dL High 74 - 100 mg/dL [facility] Interpretation and review of laboratory results Abnormal [facility] Potassium [Moles/Vol] 4.1 mmol/L 3.5 - 5.1 mmol/L [facility] Comment on above: Plasma potassium helen ues may be up to 0.5 mmol/L lower than serum values. Protein [Mass/Vol] 6.7 g/dL 6.4 - 8.3 g/dL [facility] Sodium [Moles/Vol] 137 mmol/L 136 - 145 mmol/L [facility] Urea nitrogen [Mass/Vol] 24 mg/dL High 9 - 23 mg/dL [facility] ECG 12-LEADon 10-18-2024 ECG 12-LEAD IMPRESSION: Sinus rhythm Left ventricular hypertrophy Anterior Q waves, possibly due to LVH Electronically Signed On 10-18-2024 23:06:53 EST by Sunitha Borja Normal [facility] ED Nursing Noteon 10-18-2024 ED Nursing Note EKG at bedside Normal [facility] ED Nursing Note EKG called Normal [facility] ED Nursing Note Pt presents to er [facility]. Pt presents with abd pain, diarrhea, chest pain. Pt presents aox4 speaking in full and complete sentences. Normal [facility] ED Provider Noteon ED Provider Note Normal [facility] HIGH SENSITIVITY TROPONIN, S ERIAL BASELINEon 10-18-2024 TROPONIN HIGH SENSITIVITY BASELINE <3 Normal [facility] Comment on above: Performed By: #### L AB17, LAB99, [id number] ####Chief Meteorologist: KEMAR ABEBE ([phone])[facility] ([facility])[address] [place] [address] HIGH SENSITIVITY TROPONIN, S ERIAL, SECOND TESTon 10-18-2024 TROPONIN HS DELTA, BASELINE TO SECOND Normal [facility] Comment on above: Result Comment: A tr oponin delta greater than or equal to 15 ng/L is significant for acute cardiac injury.Values less than 15 but greater than 2 are an intermediate change requiring a 3rd serial troponin to be drawn.Values less than or equal to 2 indicate acute cardiac injury is not likely, see external algorithms for further clinical guidance. Performed By: #### L [id number] ####Chief Meteorologist: KEMAR ABEBE ([phone])[facility] TROPONIN HS, SERIAL REFLEX, TEST TWO <3 Normal [facility] Comment on above: Performed By: #### L [id number] ####Chief Meteorologist: KEMAR ABEBE ([phone])[facility] ([facility])[address] [place] [address] LACTIC ACID WITH REFLEXon Lactate [Moles/Vol] 0.8 mmol/L Normal 0.5-2.2 [facility] Comment on above: Performed By: #### L [id number] ####Chief Meteorologist: KEMAR ABEBE ([phone])[facility] ([facility])[address] [place] [address] Lactate [Moles/Vol] 2.2 mmol/L Normal 0.5-2.2 [facility] Comment on above: Performed By: #### L [id number] ####Chief Meteorologist: KEMAR ABEBE ([phone])[facility] LIPASEon 10-18-2024 Lipase [Catalytic activity/Vol] 6 U/L Normal <55 [facility] Comment on above: Performed By: #### L AB17, LAB99, [id number] ####Chief Meteorologist: KEMAR ABEBE ([phone])[facility] ([facility])[address] [place] [address] Laboratory - Chemistry and C hemistry - challengeon 10-18-2024 Lactate [Moles/Vol] 0.8 mmol/L 0.5 - 2. 2 mmol/L [facility] Glucose [Mass/Vol] 136 mg/dL High 70 - 100 mg/dL [facility] Lactate [Moles/Vol] 2.2 mmol/L 0.5 - 2. 2 mmol/L [facility] Lipase [Catalytic activity/Vol] 6 U/L NINF - 55 U/L [facility] Lipase [Catalytic activity/V ol]on 10-18-2024 Interpretation and review of laboratory results Normal [facility] MANUAL DIFFERENTIALon 2023 BAND NEUTROPHILS TOTAL PER COUNTED LEUKOCYTES BY MANUAL COUNT 7 Normal [facility] Comment on above: Performed By: #### L [id number], [id number] ####Chief Meteorologist: KEMAR ABEBE ([phone])[facility] ([facility])[address] [place] [address] BANDS 0.9 10*3/uL High <=0.0 [facility] Comment on above: Performed By: #### L [id number], [id number] ####Chief Meteorologist: KEMAR ABEBE ([phone])[facility] ([facility])[address] [place] [address] CELLS COUNTED TOTAL (#) IN BLOOD 200 Normal [facility] Comment on above: Performed By: #### L [id number], [id number] ####Chief Meteorologist: KEMAR ABEBE ([phone])[facility] ([facility])[address] [place] [address] LEUKOCYTE MORPHOLOGY FINDING IN BLOOD Normal Normal [facility] Comment on above: Performed By: #### L [id number], [id number] ####Chief Meteorologist: KEMAR ABEBE ([phone])[facility] ([facility])[address] [place] [address] LEUKOCYTES (10*3/UL) NUCLEATED ERYTHROCYTE ADJUST 25.9 10*3/uL High 3.6-10.7 [facility] Comment on above: Performed By: #### L [id number], [id number] ####Chief Meteorologist: KEMAR ABEBE ([phone])[facility] ([facility])[address] [place] [address] [place] LYMPHOCYTES (10*3/UL) IN BLOOD BY MANUAL COUNT 0.4 10*3/uL Low 1.0-4.3 [facility] Comment on above: Performed By: #### L [id number], [id number] ####Chief Meteorologist: KEMAR ABEBE ([phone])[facility] ([facility])[address] [place] [address] [place] LYMPHOCYTES TOTAL PER COUNTED LEUKOCYTES BY MANUAL COUNT 3 Normal [facility] Comment on above: Performed By: #### L [id number], [id number] ####Chief Meteorologist: KEMAR ABEBE ([phone])[facility] ([facility])[address] [place] [address] [place] LYMPHOCYTES VARIANT/100 LEUKOCYTES IN BLOOD 3 % High <=0 [facility] Comment on above: Performed By: #### L [id number], [id number] ####Chief Meteorologist: KEMAR LUDWIGSAAD ([phone])[facility] ([facility])[address] [place] [address] [place] LYMPHOCYTES/100 LEUKOCYTES IN BLOOD BY MANUAL COUNT 2 % Low 15-45 [facility] Comment on above: Performed By: #### L [id number], [id number] ####Chief Meteorologist: KEMAR ABEBE ([phone])[facility] ([facility])[address] [place] [address] [place] METAMYELOCYTES (10*3/UL) IN BLOOD BY MANUAL COUNT 0.1 10*3/uL High <=0.0 [facility] Comment on above: Performed By: #### L [id number], [id number] ####Chief Meteorologist: KEMAR ABEBE ([phone])[facility] ([facility])[address] [place] [address] [place] METAMYELOCYTES TOTAL PER COUNTED LEUKOCYTES BY MANUAL COUNT 1 Normal [facility] Comment on above: Performed By: #### L [id number], [id number] ####Chief Meteorologist: KEMARDU ABEBE ([phone])[facility] ([facility])[address] [place] [address] [place] METAMYELOCYTES/100 LEUKOCYTES IN BLOOD BY MANUAL COUNT 1 % High <=0 [facility] Comment on above: Performed By: #### L [id number], [id number] ####Chief Meteorologist: KEMAR ABEBE ([phone])[facility])[address] [place] [address] [place] MONOCYTES (10*3/UL) IN BLOOD BY MANUAL COUNT 1.4 10*3/uL High 0.0-0.9 [facility] Comment on above: Performed By: #### L [id number], [id number] ####Chief Meteorologist: KEMAR ABEBE ([phone])[facility] ([facility])[address] [place] [address] [place] MONOCYTES TOTAL PER COUNTED LEUKOCYTES BY MANUAL COUNT 11 Normal [facility] Comment on above: Performed By: #### L [id number], [id number] ####Chief Meteorologist: KEMAR ABEBE ([phone])[facility] ([facility])[address] [place] [address] [place] MONOCYTES/100 LEUKOCYTES IN BLOOD BY MANUAL COUNT 6 % Normal 5-13 [facility] Comment on above: Performed By: #### L [id number], [id number] ####Chief Meteorologist: KEMAR ANDRAE ([phone])[facility] ([facility])[address] [place] [address] [place] NEUTROPHILS (SEGS+BANDS) (10*3/UL) BY MANUAL COUNT 23.2 10*3/uL High 1.8-7.0 [facility] Comment on above: Performed By: #### L [id number], [id number] ####Chief Meteorologist: KEMAR ANDRAE ([phone])[facility] ([facility])[address] [place] [address] [place] NEUTROPHILS BAND FORM/100 LEUKOCYTES IN BLOOD BY MANUAL COUNT 4 % High <=0 [facility] Comment on above: Performed By: #### L [id number], [id number] ####Chief Meteorologist: KEMAR BANUELOSCER ([id number])[facility] ([facility])[address] [place] [address] [place] NEUTROPHILS TOTAL PER COUNTED LEUKOCYTES BY MANUAL COUNT 172 Normal [facility] Comment on above: Performed By: #### L [id number], [id number] ####Chief Meteorologist: KEMAR ABEBE ([phone])[facility] ([facility])[address] PLATELET MORPHOLOGY IN BLOOD Normal Normal [facility] Comment on above: Performed By: #### L [id number], [id number] ####Chief Meteorologist: KEMAR MOMINHARRISON ([phone])[facility] ([facility])[address] RBC MORPHOLOGY IN BLOOD Normal Normal [facility] Comment on above: Performed By: #### L [id number], [id number] ####Chief Meteorologist: KEMAR ABEBE ([phone])[facility] ([facility])[address] [place] [address] [place] SEGEMENTED NEUTROPHILS/100 LEUKOCYTES BY MANUAL COUNT 86 % High 38-82 [facility] Comment on above: Performed By: #### L [id number], [id number] ####Chief Meteorologist: KEMAR ABEBE ([phone])[facility] ([facility])[address] [place] [address] [place] SEGMENTED NEUTROPHILS (10*3/UL)IN BLOOD BY MANUAL COUNT 23.2 10*3/uL High 1.8-7.5 [facility] Comment on above: Performed By: #### L [id number], [id number] ####Chief Meteorologist: KEMAR ABEBE ([phone])[facility] ([facility])[address] [place] [address] [place] VARIANT LYMPHOCYTES (10*3/UL) IN BLOOD BY MANUAL COUNT 0.8 10*3/uL High <=0.0 [facility] Comment on above: Performed By: #### L [id number], [id number] ####Chief Meteorologist: KEMAR ABEBE ([phone])[facility] ([facility])[address] VARIANT LYMPHOCYTES TOTAL PER COUNTED LEUKOCYTES BY MANUAL COUNT 6 Normal [facility] Comment on above: Performed By: #### L [id number], [id number] ####Chief Meteorologist: KEMAR ABEBE ([phone])[facility] ([facility])[address] Manual differential performe d Ql (Bld)on 10-18-2024 Atypical Lymphocytes Manual 6 [facility] Band form neutrophils (Bld) [#/Vol] 0.9 10*3/uL High NINF - 0.0 10*3/uL [facility] Band form neutrophils/100 WBC (Bld) 4 % High NINF - 0 % [facility] Bands Manual 7 [facility] Cells Counted Total (Bld) [#] 200 {cells} [facility] Interpretation and review of laboratory results Abnormal [facility] Leukocyte morphology finding Nom (Bld) Normal [facility] Lymphocytes (Bld) [#/Vol] 0.4 10*3/uL Low 1.0 - 4.3 10*3/uL [facility] Lymphocytes Manual 3 [facility] Lymphocytes/100 WBC (Bld) 2 % Low 15 - 45 % [facility] Metamyelocytes (Bld) [#/Vol] 0.1 10*3/uL High NINF - 0.0 10*3/uL [facility] Metamyelocytes Manual 1 [facility] Metamyelocytes/100 WBC (Bld) 1 % High NINF - 0 % [facility] Monocytes (Bld) [#/Vol] 1.4 10*3/uL High 0.0 - 0.9 10*3/uL [facility] Monocytes Manual 11 [facility] Monocytes/100 WBC (Bld) 6 % 5 - 13 % [facility] Neutrophils (Bld) [#/Vol] 23.2 10*3/uL High 1.8 - 7.5 10*3/uL [facility] Neutrophils Manual 172 [facility] Platelet morphology finding Nom (Bld) Normal [facility] RBC morphology finding Nom (Bld) Normal [facility] Segmented neutrophils/100 WBC (Bld) 86 % High 38 - 82 % [facility] Variant lymphocytes (Bld) [#/Vol] 0.8 10*3/uL High NINF - 0.0 10*3/uL [facility] [employer] Variant lymphocytes/100 WBC (Bld) 3 % High NINF - 0 % [facility] WBC corrected for nucl RBC (Bld) [#/Vol] 25.9 10*3/uL High 3.6 - 10.7 10*3/uL [facility] [employer] No Panel Informationon 10-18 Interpretation and review of laboratory results Normal [facility] Sinus rhythm Left ventricular hypertrophy Anterior Q waves, possibly due to LVH Electronically Signed On 10-18-2024 23:06:53 EST by Sunitha Borja CV Sunitha Patel MD - 10/18/2024 IMPRESSION: Sinus rhythm Left ventricular hypertrophy Anterior Q waves, possibly due to LVH Electronically Signed On 10-18-2024 23:06:53 EST by Sunitha Borja [facility] Interpretation and review of laboratory results Abnormal [facility] Performed by: [facility], [address] [place] [address] CLIA ID: [id number] [facility] Troponin HS Delta, Baseline to Second [facility] Comment on above: A troponin delta gre ater than or equal to 15 ng/L is significant for acute cardiac injury. Values less than 15 but greater than 2 are an intermediate change requiring a 3rd serial troponin to be drawn. Values less than or equal to 2 indicate acute cardiac injury is not likely, see external algorithms for further clinical guidance. Troponin HS, Serial Second ng/L ng/L [facility] [employer] Troponin HS, Serial Baseline ng/L ng/L [facility] Interpretation and review of laboratory results Normal [facility] [employer] No Panel InformationOrdered By: Sunitha Borja on 10-18-2024 P [place] 68 degrees [employer] Work Phone: NM Interval 185 ms [employer] Work Phone: QRS [place] -37 degrees [employer] Work Phone: QRSD Interval 108 ms [employer] Work Phone: QT Interval 386 ms [facility] Work Phone: QTC Interval 489 ms [facility] Phone: T Wave [place] 47 degrees [employer] Phone: [employer] Phone: URINE CULTUREon 10-18-2024 Bacteria identified Cx Nom (U) Normal [facility] [employer] [facility] Comment on above: Performed By: #### L [id number] ####Chief Meteorologist: MARCEAL LUCERO ([phone])[facility] ([facility])[address] [place] [address]#### [id number] ####Chief Meteorologist: KEMAR ABEBE ([id number])[facility] ([facility])[address] [place] [address] US ABDOMEN LIMITEDon 024 US ABDOMEN LIMITED Normal [facility] US Abdomen limitedon 024 1. Cholestasis, cholelithiasis, gallbladder wall thickening, with probable mural edema and trace pericholecystic fluid, as well as positive sonographic Caldwell's sign, suspicious for postinflammatory change, including acute cholecystitis. Clinical correlation and follow-up as indicated. Report Dictated on Electronically Signed By: Joel Haddad MD Electronically Signed Date/Time: 10/18/2024 8:21 PM [facility] 1965 [id number] Exam Date/Time: 10/18/2024 19:36 Procedure: US ABDOMEN LIMITED Ordering Provider: WOODALL FELIX Reason For Exam: possible acute cholecystitis ULTRASOUND OF RIGHT UPPER QUADRANT CLINICAL INDICATION: possible acute cholecystitis TECHNIQUE: Real-time ultrasound of the right upper quadrant of the abdomen. COMPARISON: Ultrasound abdomen Limited, October,; CT abdomen and pelvis, October,. FINDINGS: Gallbladder distended and contains sludge and shadowing calculi. Gallbladder wall thickened measuring up to 6 mm, with probable mural edema and trace pericholecystic fluid Intra-and extrahepatic bile ducts are of normal caliber. Positive sonographic Caldwell's sign. Liver suboptimally visualized without focal abnormalities. Right kidney measures 12.8 cm in longest dimension. Approximately 1 cm, hyperechoic and nonshadowing focus in the lower pole region not appreciated on comparison CT. No significant hydronephrosis. Pancreas not adequately visualized due to overlying bowel gas. [facility] Joel Haddad MD - 10/18/2024 Patient Name: WILL JACINTO : 1965 Exam Date/Time: 10/18/2024 19:36 Procedure: US ABDOMEN LIMITED Ordering Provider: WOODALL FELIX Reason For Exam: possible acute cholecystitis ULTRASOUND OF RIGHT UPPER QUADRANT CLINICAL INDICATION: possible acute cholecystitis TECHNIQUE: Real-time ultrasound of the right upper quadrant of the abdomen. COMPARISON: Ultrasound abdomen Limited, October,; CT abdomen and pelvis, October,. FINDINGS: Gallbladder distended and contains sludge and shadowing calculi. Gallbladder wall thickened measuring up to 6 mm, with probable mural edema and trace pericholecystic fluid Intra-and extrahepatic bile ducts are of normal caliber. Positive sonographic Caldwell's sign. Liver suboptimally visualized without focal abnormalities. Right kidney measures 12.8 cm in longest dimension. Approximately 1 cm, hyperechoic and nonshadowing focus in the lower pole region not appreciated on comparison CT. No significant hydronephrosis. Pancreas not adequately visualized due to overlying bowel gas. IMPRESSION: 1. Cholestasis, cholelithiasis, gallbladder wall thickening, with probable mural edema and trace pericholecystic fluid, as well as positive sonographic Caldwell's sign, suspicious for postinflammatory change, including acute cholecystitis. Clinical correlation and follow-up as indicated. Report Dictated on Electronically Signed By: Joel Haddad MD Electronically Signed Date/Time: 10/18/2024 8:21 PM EST [facility] Radiology Study observation (narrative) [facility] [employer] US Abdomen limitedOrdered By : Joel Haddad on 10-18-2024 [employer] Work Phone: Vital signsOrdered By: Sunitha Borja on 10-18-2024 Heart rate 96 /min bpm [facility] Work Phone: 36on 10-17-2024 36 Called [facility] and spoke with nurse laney. I relayed the message below and she verbalized understanding. [facility] 36 A lot of varibility. Many of results are adequate, many high. No clear trend to change doses thank you Normal [facility] 36on 10-16-2024 36 Patient's BGL Normal [facility] 36on 10-10-2024 36 Faxed recommendation to [facility]([phone]) Normal [facility] 36on 10-09-2024 36 Keep doses the same for now thank you Normal [facility] 36 Patient's BGL Normal [facility] 36on 10-04-2024 36 Patient's BGL Normal [facility] 36on 09-26-2024 36 Notified pt's nurse at his facilities. Normal [facility] 36on 09-25-2024 36 A lot of variability please keep doses the same thank you Normal [facility] 36 Patient's BGL Normal [facility] Hemoglobin A1con 09-22-2024 HbA1c (Bld) [Mass fraction] 7.6 % High 3.8-5.6 [facility] Comment on above: Order Comment: 103.1 Result Comment: Norm al < 5.7 % Prediabetic 5.7 - 6.4 % Diabetic >or= 6.5 % Please note range changes. Performed By: #### L 100.0500, L500.4050 #### [facility] [address] [place], [address] Hemoglobin A1c percentageOrd ered By: Jared Guzman on 09-22-2024 HbA1c (Bld) [Mass fraction] 7.6 % High 3.8-5.6 [facility] Comment on above: Normal < 5.7 % Predi abetic 5.7 - 6.4 % Diabetic >or= 6.5 % Please note range changes. 36on 09-20-2024 36 Faxed recommendation to [facility]. Thank you! Normal [facility] 36on 09-19-2024 36 Very high doses with variability and history severe hypoglycemia- would not change doses for now Normal [facility] 36 Patient's BGL Normal [facility] 36on 09-13-2024 36 Faxed info. To [facility]. [phone] Normal [facility] CBC-Complete Blood Cnt No Di ffon 09-12-2024 Erythrocyte distribution width (RBC) [Ratio] 13.8 % Normal 11.6-14.6 [facility] Comment on above: Order Comment: 103-1 Performed By: #### L 100.0500, L500.2500 #### [facility] [address] [place], [address] Hematocrit (Bld) [Volume fraction] 35.2 % Low 37-47 [facility] Comment on above: Order Comment: 103-1 Performed By: #### L 100.0500, L500.2500 #### [facility] [address] [place], [address] Hemoglobin (Bld) [Mass/Vol] 11.3 g/dL Low 12.0-15.0 [facility] Comment on above: Order Comment: 103-1 Performed By: #### L 100.0500, L500.2500 #### [facility] [address] [place], [address] MCH (RBC) [Entitic mass] 27.8 pg Normal 27.0-32.0 [facility] Comment on above: Order Comment: 103-1 Performed By: #### L 100.0500, L500.2500 #### [facility] [address] [place], [address] MCHC (RBC) [Mass/Vol] 32.1 g/dL Normal 32-[address] [facility] Comment on above: Order Comment: 103-1 Performed By: #### L 100.0500, L500.2500 #### [facility] [address] [place], [address] MCV (RBC) [Entitic vol] 86.7 fL Normal 81-99 [facility] Comment on above: Order Comment: 103-1 Performed By: #### L 100.0500, L500.2500 #### [facility] [address] [place], [address] Platelet mean volume (Bld) [Entitic vol] 10.2 fL Normal 6.2-12.0 [facility] Comment on above: Order Comment: 103-1 Performed By: #### L 100.0500, L500.2500 #### [facility] [address] [place], [address] Platelets (Bld) [#/Vol] 352 10*3/uL Normal 150-450 [facility] Comment on above: Order Comment: 103-1 Performed By: #### L 100.0500, L500.2500 #### [facility] [address] [place], [address] RBC (Bld) [#/Vol] 4.06 10*6/uL Low 4.2-5.4 [facility] Comment on above: Order Comment: 103-1 Performed By: #### L 100.0500, L500.2500 #### [facility] [address] [place], [address] RDW SD 43.5 fl Normal 35.1-43.9 [facility] Comment on above: Order Comment: 103-1 Performed By: #### L 100.0500, L500.2500 #### [facility] [address] [place], [address] WBC (Bld) [#/Vol] 8.5 10*3/uL Normal 4.4-11.0 [facility] Comment on above: Order Comment: 103-1 Performed By: #### L 100.0500, L500.2500 #### [facility] [address] [place], [address] 36on 09-11-2024 36 Keep doses the same for now thank you Normal [facility] 36 Patient's BGL Normal [facility] CBC-Complete Blood Cnt No Di ffon 09-11-2024 HCT Normal 37-47 [facility] Comment on above: Order Comment: 103.1 Result Comment: DID NOT GET PURPLE TOP Performed By: #### L 500.4050, L100.0500 #### [facility] [address] [place], [address] HGB Normal 12.0-15.0 [facility] Comment on above: Order Comment: 103.1 Result Comment: DID NOT GET PURPLE TOP Performed By: #### L 500.4050, L100.0500 #### [facility] [address] [place], [address] MCH Normal 27.0-32.0 [facility] Comment on above: Order Comment: 103.1 Result Comment: DID NOT GET PURPLE TOP Performed By: #### L 500.4050, L100.0500 #### [facility] [address] [place], [address] MCHC Normal 32-36 [facility] Comment on above: Order Comment: 103.1 Result Comment: DID NOT GET PURPLE TOP Performed By: #### L 500.4050, L100.0500 #### [facility] [address] [place], [address] MCV Normal 81-99 [facility] Comment on above: Order Comment: 103.1 Result Comment: DID NOT GET PURPLE TOP Performed By: #### L 500.4050, L100.0500 #### [facility] [address] [place], [address] PLT Normal 150-450 [facility] Comment on above: Order Comment: 103.1 Result Comment: DID NOT GET PURPLE TOP Performed By: #### L 500.4050, L100.0500 #### [facility] [address] [place], [address] RBC Normal 4.2-5.4 [facility] Comment on above: Order Comment: 103.1 Result Comment: DID NOT GET PURPLE TOP Performed By: #### L 500.4050, L100.0500 #### [facility] [address] [place], [address] RDW CV Normal 11.6-14.6 [facility] Comment on above: Order Comment: 103.1 Result Comment: DID NOT GET PURPLE TOP Performed By: #### L 500.4050, L100.0500 #### [facility] [address] [place], [address] RDW SD Normal 35.1-43.9 [facility] Comment on above: Order Comment: 103.1 Result Comment: DID NOT GET PURPLE TOP Performed By: #### L 500.4050, L100.0500 #### [facility] [address] [place], [address] WBC Normal 4.4-11.0 [facility] Comment on above: Order Comment: 103.1 Result Comment: DID NOT GET PURPLE TOP Performed By: #### L 500.4050, L100.0500 #### [facility] [address] [place], [address] Comprehensive Metabolic Prof idon 09-11-2024 Albumin [Mass/Vol] 3.3 g/dL Normal 3.2-5.0 [facility] Comment on above: Order Comment: 103.1 Performed By: #### L 500.4050, L100.0500 #### [facility] [address] [place], [address] Albumin/Globulin [Mass ratio] 1.0 {ratio} Normal 0.9-2.4 [facility] Comment on above: Order Comment: 103.1 Performed By: #### L 500.4050, L100.0500 #### [facility] [address] [place], [address] ALK P 169 U/L High 45-117 [facility] Comment on above: Order Comment: 103.1 Performed By: #### L 500.4050, L100.0500 #### [facility] [address] [place], [address] ALT [Catalytic activity/Vol] 30 U/L Normal 13-56 [facility] Comment on above: Order Comment: 103.1 Performed By: #### L 500.4050, L100.0500 #### [facility] [address] [place], [address] AST [Catalytic activity/Vol] 15 U/L Normal 15-37 [facility] Comment on above: Order Comment: 103.1 Performed By: #### L 500.4050, L100.0500 #### [facility] [address] [place], [address] Bilirubin [Mass/Vol] 0.40 mg/dL Normal 0.20-1.00 [facility] Comment on above: Order Comment: 103.1 Result Comment: For patients on eltrombopag therapy, use of Dimension [place] TBIL is not recommended. Performed By: #### L 500.4050, L100.0500 #### [facility] [address] [place], [address] BUN/CRE 17.4 RATIO Normal 10-20 [facility] Comment on above: Order Comment: 103.1 Performed By: #### L 500.4050, L100.0500 #### [facility] [address] [place], [address] CA,Total 8.9 mg/dL Normal 8.5-10.1 [facility] Comment on above: Order Comment: 103.1 Performed By: #### L 500.4050, L100.0500 #### [facility] [address] [place], [address] Chloride [Moles/Vol] 105 mmol/L Normal 98-107 [facility] Comment on above: Order Comment: 103.1 Performed By: #### L 500.4050, L100.0500 #### [facility] [address] [place], [address] CO2 [Moles/Vol] 27.0 mmol/L Normal 21.0-32.0 [facility] Comment on above: Order Comment: 103.1 Performed By: #### L 500.4050, L100.0500 #### [facility] [address] [place], [address] Creatinine [Mass/Vol] 0.86 mg/dL Normal 0.55-1.[address] [facility] Comment on above: Order Comment: 103.1 Result Comment: The validity of the calculated GFR GFRAA in patients over 70 years has not been determined. Clinical correlation is essential. Performed By: #### L 500.4050, L100.0500 #### [facility] [address] [place], [address] EST GFR - AA 87 mL/min Normal >60 [facility] Comment on above: Order Comment: 103.1 Result Comment: Afri can [place] GFR Calc Performed By: #### L 500.4050, L100.0500 #### [facility] [address] [place], [address] GAP 7 Normal 5-15 [facility] Comment on above: Order Comment: 103.1 Performed By: #### L 500.4050, L100.0500 #### [facility] [address] [place], [address] GFR/1.73 sq M.predicted among non-blacks MDRD (S/P/Bld) [Vol rate/Area] 72 mL/min/{1.73_m2} Normal >60 [facility] Comment on above: Order Comment: 103.1 Result Comment: Non- GFR Calc Performed By: #### L 500.4050, L100.0500 #### [facility] [address] [place], [address] Globulin (S) [Mass/Vol] 3.4 g/dL Normal 2.2-4.2 [facility] Comment on above: Order Comment: 103.1 Performed By: #### L 500.4050, L100.0500 #### [facility] [address] [place], [address] Glucose [Mass/Vol] 283 mg/dL High 74-106 [facility] Comment on above: Order Comment: 103.1 Result Comment: Gluc ose result greater than or equal to 200 mg/dL suggests DIABETES MELLITUS per A.D.A. criteria. Performed By: #### L 500.4050, L100.0500 #### [facility] [address] [place], [address] Potassium [Moles/Vol] 4.3 mmol/L Normal 3.5-5.[address] [facility] Comment on above: Order Comment: 103.1 Performed By: #### L 500.4050, L100.0500 #### [facility] [address] [place], [address] Sodium [Moles/Vol] 139 mmol/L Normal 136-145 [facility] Comment on above: Order Comment: 103.1 Performed By: #### L 500.4050, L100.0500 #### [facility] [address] [place], [address] T PROT 6.7 g/dL Normal 6.4-8.2 [facility] Comment on above: Order Comment: 103.1 Performed By: #### L 500.4050, L100.0500 #### [facility] [address] [place], [address] Urea nitrogen [Mass/Vol] 15 mg/dL Normal 7-18 [facility] Comment on above: Order Comment: 103.1 Performed By: #### L 500.4050, L100.0500 #### [facility] [address] [place], [address] 36on 08-30-2024 36 [facility] Thank you! Normal [facility] 36on 08-29-2024 36 For now keep doses t he same thank you Normal [facility] 36 Patient's BGL Normal [facility] 36on 08-22-2024 36 Patient's B GL Normal [facility] 36on 08-09-2024 36 There's a more recen t BGL that you also advised no changes. I faxed [facility]. Thank you! Normal [facility] 36 [address] [facility]. Thank you! Normal [facility] 36on 08-08-2024 36 Somewhat improved; w ould not make any changes at this point thank you Normal [facility] 36 Patient's BGL Normal [facility] 36on 08-04-2024 36 Please keep doses th e same thank you Normal [facility] 36on 08-03-2024 36 Patient's BGL Normal [facility] Basic Metabolic Profile (BMP )on 08-02-2024 BUN/CRE 19.6 RATIO Normal 10-20 [facility] Comment on above: Performed By: #### L 100.0500, L500.2500 #### [facility] [address] [place], [address] CA,Total 9.3 mg/dL Normal 8.5-10.1 [facility] Comment on above: Performed By: #### L 100.0500, L500.2500 #### [facility] [address] [place], [address] Chloride [Moles/Vol] 105 mmol/L Normal 98-107 [facility] Comment on above: Performed By: #### L 100.0500, L500.2500 #### [facility] [address] [place], [address] CO2 [Moles/Vol] 25.0 mmol/L Normal 21.0-32.0 [facility] Comment on above: Performed By: #### L 100.0500, L500.2500 #### [facility] [address] [place], [address] Creatinine [Mass/Vol] 0.72 mg/dL Normal 0.55-1.[address] [facility] Comment on above: Result Comment: The validity of the calculated GFR GFRAA in patients over 70 years has not been determined. Clinical correlation is essential. Performed By: #### L 100.0500, L500.2500 #### [facility] [address] [place], [address] EST GFR - AA 108 mL/min Normal >60 [facility] Comment on above: Result Comment: Afri can [place] GFR Calc Performed By: #### L 100.0500, L500.2500 #### [facility] [address] [place], [address] GAP 6 Normal 5-15 [facility] Comment on above: Performed By: #### L 100.0500, L500.2500 #### [facility] [address] [place], [address] GFR/1.73 sq M.predicted among non-blacks MDRD (S/P/Bld) [Vol rate/Area] 89 mL/min/{1.73_m2} Normal >60 [facility] Comment on above: Result Comment: Non- GFR Calc Performed By: #### L 100.0500, L500.2500 #### [facility] [address] [place], [address] Glucose [Mass/Vol] 207 mg/dL High 74-106 [facility] Comment on above: Result Comment: Gluc ose result greater than or equal to 200 mg/dL suggests DIABETES MELLITUS per A.D.A. criteria. Performed By: #### L 100.0500, L500.2500 #### [facility] [address] [place], [address] Potassium [Moles/Vol] 4.4 mmol/L Normal 3.5-5.[address] [facility] Comment on above: Performed By: #### L 100.0500, L500.2500 #### [facility] [address] [place], [address] Sodium [Moles/Vol] 136 mmol/L Normal 136-145 [facility] Comment on above: Performed By: #### L 100.0500, L500.2500 #### [facility] [address] [place], [address] Urea nitrogen [Mass/Vol] 14 mg/dL Normal 7-18 [facility] Comment on above: Performed By: #### L 100.0500, L500.2500 #### [facility] [address] [place], [address] CBC-Complete Blood Cnt No Di ffon 08-02-2024 Erythrocyte distribution width (RBC) [Ratio] 14.1 % Normal 11.6-14.6 [facility] Comment on above: Performed By: #### L 100.0500, L500.2500 #### [facility] [address] [place], [address] Hematocrit (Bld) [Volume fraction] 35.6 % Low 37-47 [facility] Comment on above: Performed By: #### L 100.0500, L500.2500 #### [facility] [address] [place], [address] Hemoglobin (Bld) [Mass/Vol] 11.1 g/dL Low 12.0-15.0 [facility] Comment on above: Performed By: #### L 100.0500, L500.2500 #### [facility] [address] [place], [address] MCH (RBC) [Entitic mass] 27.2 pg Normal 27.0-32.0 [facility] Comment on above: Performed By: #### L 100.0500, L500.2500 #### [facility] [address] [place], [address] MCHC (RBC) [Mass/Vol] 31.2 g/dL Low 32-[address] [facility] Comment on above: Performed By: #### L 100.0500, L500.2500 #### [facility] [address] [place], [address] MCV (RBC) [Entitic vol] 87.3 fL Normal 81-99 [facility] Comment on above: Performed By: #### L 100.0500, L500.2500 #### [facility] [address] [place], [address] Platelet mean volume (Bld) [Entitic vol] 10.8 fL Normal 6.2-12.0 [facility] Comment on above: Performed By: #### L 100.0500, L500.2500 #### [facility] [address] [place], [address] Platelets (Bld) [#/Vol] 323 10*3/uL Normal 150-450 [facility] Comment on above: Performed By: #### L 100.0500, L500.2500 #### [facility] [address] [place], [address] RBC (Bld) [#/Vol] 4.08 10*6/uL Low 4.2-5.4 [facility] Comment on above: Performed By: #### L 100.0500, L500.2500 #### [facility] [address] [place], [address] RDW SD 44.8 fl High 35.1-43.9 [facility] Comment on above: Performed By: #### L 100.0500, L500.2500 #### [facility] [address] [place], [address] WBC (Bld) [#/Vol] 8.8 10*3/uL Normal 4.4-11.0 [facility] Comment on above: Performed By: #### L 100.0500, L500.2500 #### [facility] [address] [place], [address] 36on 07-31-2024 36 [phone][facility] 36on 07-28-2024 36 Please keep doses th e same thank you [facility] 36 Patient's recent BGL is below for your review. (07/20/24-07/24/24) Current DM regimen: Humulin R U500(130 units TID) Lantus (45 units BID) [facility] 36on 07-18-2024 36 [facility] spoke with nurse. I relayed the message below and she verbalized understanding. [facility] 36 Increase lantus to 4 5 twice daily thank you [facility] 36 Patient is currently taking Humulin R U500(130 units TID) and lantus(30 units BID). [facility] 36on 07-17-2024 36 Please confirm curre nt u500 doses thank you [facility] 36 Patient's BGL [facility] CBC-Complete Blood Cnt No Di ffon 07-17-2024 Erythrocyte distribution width (RBC) [Ratio] 13.9 % Normal 11.6-14.6 [facility] Comment on above: Order Comment: 103-1 Performed By: #### L 500.4100, L100.0500, L500.4050 #### [facility] [address] [place], [address] Hematocrit (Bld) [Volume fraction] 33.7 % Low 37-47 [facility] Comment on above: Order Comment: 103-1 Performed By: #### L 500.4100, L100.0500, L500.4050 #### [facility] [address] [place], [address] Hemoglobin (Bld) [Mass/Vol] 10.7 g/dL Low 12.0-15.0 [facility] Comment on above: Order Comment: 103-1 Performed By: #### L 500.4100, L100.0500, L500.4050 #### [facility] [address] [place], [address] MCH (RBC) [Entitic mass] 27.2 pg Normal 27.0-32.0 [facility] Comment on above: Order Comment: 103-1 Performed By: #### L 500.4100, L100.0500, L500.4050 #### [facility] [address] [place], [address] MCHC (RBC) [Mass/Vol] 31.8 g/dL Low 32-[address] [facility] Comment on above: Order Comment: 103-1 Performed By: #### L 500.4100, L100.0500, L500.4050 #### [facility] [address] [place], [address] MCV (RBC) [Entitic vol] 85.5 fL Normal 81-99 [facility] Comment on above: Order Comment: 103-1 Performed By: #### L 500.4100, L100.0500, L500.4050 #### [facility] [address] [place], [address] Platelet mean volume (Bld) [Entitic vol] 10.3 fL Normal 6.2-12.0 [facility] Comment on above: Order Comment: 103-1 Performed By: #### L 500.4100, L100.0500, L500.4050 #### [facility] [address] [place], [address] Platelets (Bld) [#/Vol] 353 10*3/uL Normal 150-450 [facility] Comment on above: Order Comment: 103-1 Performed By: #### L 500.4100, L100.0500, L500.4050 #### [facility] [address] [place], [address] RBC (Bld) [#/Vol] 3.94 10*6/uL Low 4.2-5.4 [facility] Comment on above: Order Comment: 103-1 Performed By: #### L 500.4100, L100.0500, L500.4050 #### [facility] [address] [place], [address] RDW SD 43.3 fl Normal 35.1-43.9 [facility] Comment on above: Order Comment: 103-1 Performed By: #### L 500.4100, L100.0500, L500.4050 #### [facility] [address] [place], [address] WBC (Bld) [#/Vol] 8.0 10*3/uL Normal 4.4-11.0 [facility] Comment on above: Order Comment: 103-1 Performed By: #### L 500.4100, L100.0500, L500.4050 #### [facility] [address] [place], [address] Comprehensive Metabolic Prof ilon 07-17-2024 Albumin [Mass/Vol] 2.9 g/dL Low 3.2-5.0 [facility] Comment on above: Order Comment: 103-1 Performed By: #### L 500.4100, L100.0500, L500.4050 #### [facility] [address] [place], [address] Albumin/Globulin [Mass ratio] 0.9 {ratio} Normal 0.9-2.4 [facility] Comment on above: Order Comment: 103-1 Performed By: #### L 500.4100, L100.0500, L500.4050 #### [facility] [address] [place], [address] ALK P 152 U/L High 45-117 [facility] Comment on above: Order Comment: 103-1 Performed By: #### L 500.4100, L100.0500, L500.4050 #### [facility] [address] [place], [address] ALT [Catalytic activity/Vol] 28 U/L Normal 13-56 [facility] Comment on above: Order Comment: 103-1 Performed By: #### L 500.4100, L100.0500, L500.4050 #### [facility] [address] [place], [address] AST [Catalytic activity/Vol] 14 U/L Low 15-37 [facility] Comment on above: Order Comment: 103-1 Performed By: #### L 500.4100, L100.0500, L500.4050 #### [facility] [address] [place], [address] Bilirubin [Mass/Vol] 0.30 mg/dL Normal 0.20-1.00 [facility] Comment on above: Order Comment: 103-1 Result Comment: For patients on eltrombopag therapy, use of Dimension [place] TBIL is not recommended. Performed By: #### L 500.4100, L100.0500, L500.4050 #### [facility] [address] [place], [address] BUN/CRE 21.4 RATIO High 10-20 [facility] Comment on above: Order Comment: 103-1 Performed By: #### L 500.4100, L100.0500, L500.4050 #### [facility] [address] [place], [address] CA,Total 9.1 mg/dL Normal 8.5-10.1 [facility] Comment on above: Order Comment: 103- Performed By: #### L 500.4100, L100.0500, L500.4050 #### [facility] [address] [place], [address] Chloride [Moles/Vol] 104 mmol/L Normal 98-107 [facility] Comment on above: Order Comment: 103- Performed By: #### L 500.4100, L100.0500, L500.4050 #### [facility] [address] [place], [address] CO2 [Moles/Vol] 27.0 mmol/L Normal 21.0-32.0 [facility] Comment on above: Order Comment: 103- Performed By: #### L 500.4100, L100.0500, L500.4050 #### [facility] [address] [place], [address] Creatinine [Mass/Vol] 0.56 mg/dL Normal 0.55-1.[address] [facility] Comment on above: Order Comment: 103- Result Comment: The validity of the calculated GFR GFRAA in patients over 70 years has not been determined. Clinical correlation is essential. Performed By: #### L 500.4100, L100.0500, L500.4050 #### [facility] [address] [place], [address] EST GFR - AA 143 mL/min Normal >60 [facility] Comment on above: Order Comment: 103-1 Result Comment: Afri can [place] GFR Calc Performed By: #### L 500.4100, L100.0500, L500.4050 #### [facility] [address] [place], [address] GAP 7 Normal 5-15 [facility] Comment on above: Order Comment: - Performed By: #### L 500.4100, L100.0500, L500.4050 #### [facility] [address] [place], [address] GFR/1.73 sq M.predicted among non-blacks MDRD (S/P/Bld) [Vol rate/Area] 118 mL/min/{1.73_m2} Normal >60 [facility] Comment on above: Order Comment: Result Comment: Non- GFR Calc Performed By: #### L 500.4100, L100.0500, L500.4050 #### [facility] [address] [place], [address] Globulin (S) [Mass/Vol] 3.4 g/dL Normal 2.2-4.2 [facility] Comment on above: Order Comment: Performed By: #### L 500.4100, L100.0500, L500.4050 #### [facility] [address] [place], [address] Glucose [Mass/Vol] 175 mg/dL High 74-106 [facility] Comment on above: Order Comment: Result Comment: Fast ing Glucose result greater than or equal to 126 mg/dL suggests DIABETES MELLITUS per A.D.A. criteria. Performed By: #### L 500.4100, L100.0500, L500.4050 #### [facility] [address] [place], [address] Potassium [Moles/Vol] 3.8 mmol/L Normal 3.5-5.[address] [facility] Comment on above: Order Comment: - Performed By: #### L 500.4100, L100.0500, L500.4050 #### [facility] [address] [place], [address] Sodium [Moles/Vol] 138 mmol/L Normal 136-145 [facility] Comment on above: Order Comment: 103- Performed By: #### L 500.4100, L100.0500, L500.4050 #### [facility] [address] [place], [address] T PROT 6.3 g/dL Low 6.4-8.2 [facility] Comment on above: Order Comment: 103- Performed By: #### L 500.4100, L100.0500, L500.4050 #### [facility] [address] [place], [address] Urea nitrogen [Mass/Vol] 12 mg/dL Normal 7-18 [facility] Comment on above: Order Comment: 103- Performed By: #### L 500.4100, L100.0500, L500.4050 #### [facility] [address] [place], [address] Lipid Profileon 07-17-2024 Cholesterol [Mass/Vol] 146 mg/dL Normal 200 [facility] Comment on above: Order Comment: Result Comment: <200 mg/dL Desirable 200-240 mg/dL Borderline >240 mg/dL High Risk Performed By: #### L 500.4100, L100.0500, L500.4050 #### [facility] [address] [place], [address] Cholesterol in HDL [Mass/Vol] 39 mg/dL Low [facility] Comment on above: Order Comment: 103- Result Comment: The drugs N-Acetylcysteine and Metamizole may falsely depress this assay. Reference Range HDL <40 mg/dL Low HDL Cholesterol HDL >or= 60 mg/dL High HDL Cholesterol Performed By: #### L 500.4100, L100.0500, L500.4050 #### [facility] [address] [place], [address] Cholesterol in LDL [Mass/Vol] 83 mg/dL Normal 0-130 [facility] Comment on above: Order Comment: Performed By: #### L 500.4100, L100.0500, L500.4050 #### [facility] [address] [place], [address] Cholesterol in VLDL [Mass/Vol] 24 mg/dL Normal 5-40 [facility] Comment on above: Order Comment: Performed By: #### L 500.4100, L100.0500, L500.4050 #### [facility] [address] [place], [address] Triglyceride [Mass/Vol] 122 mg/dL Normal [facility] Comment on above: Order Comment: Result Comment: The drugs N-Acetylcysteine and Metamizole may falsely depress this assay. Serum Triglycerides Reference Interval Normal <150 mg/dL Borderline high 150 - 199 mg/dL High 200 - 499 mg/dL Very High > or = 500 mg/dL Performed By: #### L 500.4100, L100.0500, L500.4050 #### [facility] [address] [place], [address] Lipid Profileon 06-29-2024 Cholesterol [Mass/Vol] 146 mg/dL Normal 200 [facility] Comment on above: Order Comment: Result Comment: <200 mg/dL Desirable 200-240 mg/dL Borderline >240 mg/dL High Risk Performed By: #### L 100.0500, L500.2500 #### [facility] [address] [place], [address] Cholesterol in HDL [Mass/Vol] 29 mg/dL Low [facility] Comment on above: Order Comment: 103 Result Comment: The drugs N-Acetylcysteine and Metamizole may falsely depress this assay. Reference Range HDL <40 mg/dL Low HDL Cholesterol HDL >or= 60 mg/dL High HDL Cholesterol Performed By: #### L 100.0500, L500.2500 #### [facility] [address] [place], [address] Cholesterol in LDL [Mass/Vol] 87 mg/dL Normal 0-130 [facility] Comment on above: Order Comment: 103-1 Performed By: #### L 100.0500, L500.2500 #### [facility] [address] [place], [address] Cholesterol in VLDL [Mass/Vol] 30 mg/dL Normal 5-40 [facility] Comment on above: Order Comment: 103-1 Performed By: #### L 100.0500, L500.2500 #### [facility] [address] [place], [address] Triglyceride [Mass/Vol] 150 mg/dL Normal [facility] Comment on above: Order Comment: 103-1 Result Comment: The drugs N-Acetylcysteine and Metamizole may falsely depress this assay. Serum Triglycerides Reference Interval Normal <150 mg/dL Borderline high 150 - 199 mg/dL High 200 - 499 mg/dL Very High > or = 500 mg/dL Performed By: #### L 100.0500, L500.2500 #### [facility] [address] [place], [address] 36on 06-26-2024 36 Spoke with nurse Luis garcia at [facility] and she verbalized understanding to new change. [facility] 36 Please increase U500 from 125 units TID AC meals to 130 units TID AC meals thanks [facility] 36 Patient's BGL [facility] 36on 06-13-2024 36 Called [facility] and spoke with Ninfa(RN). I relayed the message below and she verbalized understanding. [facility] 36 Please ask to increa se u500 dose to 125 units 3 times daily with meals thank you [facility] 36 Patient's recent blo od sugar log is below for your review. Current DM regimen: Humulin R u500(100 unit TID) Lantus(30 units BID) [facility] Renal Profileon 06-12-2024 Albumin [Mass/Vol] 3.0 g/dL Low 3.2-5.0 [facility] Comment on above: Order Comment: 103.1 Performed By: #### L 500.3600 #### [facility] [address] [place], [address] BUN/CRE 17.2 RATIO Normal 10-20 [facility] Comment on above: Order Comment: 103.1 Performed By: #### L 500.3600 #### [facility] [address] [place], [address] CA,Total 8.8 mg/dL Normal 8.5-10.1 [facility] Comment on above: Order Comment: 103.1 Performed By: #### L 500.3600 #### [facility] [address] [place], [address] Chloride [Moles/Vol] 105 mmol/L Normal 98-107 [facility] Comment on above: Order Comment: 103.1 Performed By: #### L 500.3600 #### [facility] [address] [place], [address] CO2 [Moles/Vol] 28.0 mmol/L Normal 21.0-32.0 [facility] Comment on above: Order Comment: 103.1 Performed By: #### L 500.3600 #### [facility] [address] [place], [address] Creatinine [Mass/Vol] 0.76 mg/dL Normal 0.55-1.[address] [facility] Comment on above: Order Comment: 103.1 Result Comment: The validity of the calculated GFR GFRAA in patients over 70 years has not been determined. Clinical correlation is essential. Performed By: #### L 500.3600 #### [facility] [address] [place], [address] EST GFR - AA 101 mL/min Normal >60 [facility] Comment on above: Order Comment: 103.1 Result Comment: Afri can [place] GFR Calc Performed By: #### L 500.3600 #### [facility] [address] [place], [address] GFR/1.73 sq M.predicted among non-blacks MDRD (S/P/Bld) [Vol rate/Area] 84 mL/min/{1.73_m2} Normal >60 [facility] Comment on above: Order Comment: 103.1 Result Comment: Non- GFR Calc Performed By: #### L 500.3600 #### [facility] [address] [place], [address] Glucose [Mass/Vol] 169 mg/dL High 74-106 [facility] Comment on above: Order Comment: 103.1 Result Comment: Fast ing Glucose result greater than or equal to 126 mg/dL suggests DIABETES MELLITUS per A.D.A. criteria. Performed By: #### L 500.3600 #### [facility] [address] [place], [address] Phosphate [Mass/Vol] 4.3 mg/dL Normal 2.5-4.9 [facility] Comment on above: Order Comment: 103.1 Performed By: #### L 500.3600 #### [facility] [address] [place], [address] Potassium [Moles/Vol] 3.8 mmol/L Normal 3.5-5.[address] [facility] Comment on above: Order Comment: 103.1 Performed By: #### L 500.3600 #### [facility] [address] [place], [address] Sodium [Moles/Vol] 140 mmol/L Normal 136-145 [facility] Comment on above: Order Comment: 103.1 Performed By: #### L 500.3600 #### [facility] [address] [place], [address] Urea nitrogen [Mass/Vol] 13 mg/dL Normal 7-18 [facility] Comment on above: Order Comment: 103.1 Performed By: #### L 500.3600 #### [facility] [address] [place], [address] Basic Metabolic Profile (BMP )on 05-31-2024 BUN/CRE 20.1 RATIO High 10-20 [facility] Comment on above: Order Comment: 103-1 Performed By: #### L 100.0500, L500.2500 #### [facility] [address] [place], [address] CA,Total 8.8 mg/dL Normal 8.5-10.1 [facility] Comment on above: Order Comment: 103-1 Performed By: #### L 100.0500, L500.2500 #### [facility] [address] [place], [address] Chloride [Moles/Vol] 102 mmol/L Normal 98-107 [facility] Comment on above: Order Comment: 103-1 Performed By: #### L 100.0500, L500.2500 #### [facility] [address] [place], [address] CO2 [Moles/Vol] 27.0 mmol/L Normal 21.0-32.0 [facility] Comment on above: Order Comment: 103-1 Performed By: #### L 100.0500, L500.2500 #### [facility] [address] [place], [address] Creatinine [Mass/Vol] 0.80 mg/dL Normal 0.55-1.[address] [facility] Comment on above: Order Comment: 103-1 Result Comment: The validity of the calculated GFR GFRAA in patients over 70 years has not been determined. Clinical correlation is essential. Performed By: #### L 100.0500, L500.2500 #### [facility] [address] [place], [address] EST GFR - AA 95 mL/min Normal >60 [facility] Comment on above: Order Comment: 103- Result Comment: Afri can [place] GFR Calc Performed By: #### L 100.0500, L500.2500 #### [facility] [address] [place], [address] GAP 7 Normal 5-15 [facility] Comment on above: Order Comment: 103-1 Performed By: #### L 100.0500, L500.2500 #### [facility] [address] [place], [address] GFR/1.73 sq M.predicted among non-blacks MDRD (S/P/Bld) [Vol rate/Area] 79 mL/min/{1.73_m2} Normal >60 [facility] Comment on above: Order Comment: 103- Result Comment: Non- GFR Calc Performed By: #### L 100.0500, L500.2500 #### [facility] [address] [place], [address] Glucose [Mass/Vol] 285 mg/dL High 74-106 [facility] Comment on above: Order Comment: 103- Result Comment: Gluc ose result greater than or equal to 200 mg/dL suggests DIABETES MELLITUS per A.D.A. criteria. Performed By: #### L 100.0500, L500.2500 #### [facility] [address] [place], [address] Potassium [Moles/Vol] 4.3 mmol/L Normal 3.5-5.[address] [facility] Comment on above: Order Comment: 103-1 Performed By: #### L 100.0500, L500.2500 #### [facility] [address] [place], [address] Sodium [Moles/Vol] 136 mmol/L Normal 136-145 [facility] Comment on above: Order Comment: 103-1 Performed By: #### L 100.0500, L500.2500 #### [facility] [address] [place], [address] Urea nitrogen [Mass/Vol] 16 mg/dL Normal 7-18 [facility] Comment on above: Order Comment: 103-1 Performed By: #### L 100.0500, L500.2500 #### [facility] [address] [place], [address] CBC-Complete Blood Cnt No Di ffon 05-31-2024 Erythrocyte distribution width (RBC) [Ratio] 13.6 % Normal 11.6-14.6 [facility] Comment on above: Order Comment: 103-1 Performed By: #### L 100.0500, L500.2500 #### [facility] [address] [place], [address] Hematocrit (Bld) [Volume fraction] 33.8 % Low 37-47 [facility] Comment on above: Order Comment: 103-1 Performed By: #### L 100.0500, L500.2500 #### [facility] [address] [place], [address] Hemoglobin (Bld) [Mass/Vol] 10.7 g/dL Low 12.0-15.0 [facility] Comment on above: Order Comment: 103-1 Performed By: #### L 100.0500, L500.2500 #### [facility] [address] [place], [address] MCH (RBC) [Entitic mass] 27.1 pg Normal 27.0-32.0 [facility] Comment on above: Order Comment: 103-1 Performed By: #### L 100.0500, L500.2500 #### [facility] [address] [place], [address] MCHC (RBC) [Mass/Vol] 31.7 g/dL Low 32-[address] [facility] Comment on above: Order Comment: 103-1 Performed By: #### L 100.0500, L500.2500 #### [facility] [address] [place], [address] MCV (RBC) [Entitic vol] 85.6 fL Normal 81-99 [facility] Comment on above: Order Comment: 103-1 Performed By: #### L 100.0500, L500.2500 #### [facility] [address] [place], [address] Platelet mean volume (Bld) [Entitic vol] 10.3 fL Normal 6.2-12.0 [facility] Comment on above: Order Comment: 103-1 Performed By: #### L 100.0500, L500.2500 #### [facility] [address] [place], [address] Platelets (Bld) [#/Vol] 336 10*3/uL Normal 150-450 [facility] Comment on above: Order Comment: 103-1 Performed By: #### L 100.0500, L500.2500 #### [facility] [address] [place], [address] RBC (Bld) [#/Vol] 3.95 10*6/uL Low 4.2-5.4 [facility] Comment on above: Order Comment: 103-1 Performed By: #### L 100.0500, L500.2500 #### [facility] [address] [place], [address] RDW SD 42.5 fl Normal 35.1-43.9 [facility] Comment on above: Order Comment: 103-1 Performed By: #### L 100.0500, L500.2500 #### [facility] [address] [place], [address] WBC (Bld) [#/Vol] 7.9 10*3/uL Normal 4.4-11.0 [facility] Comment on above: Order Comment: 103-1 Performed By: #### L 100.0500, L500.2500 #### [facility] [address] [place], [address] Hemoglobin A1con 05-22-2024 HbA1c (Bld) [Mass fraction] 8.6 % High 3.8-5.6 [facility] Comment on above: Order Comment: 103.1 Result Comment: Norm al < 5.7 % Prediabetic 5.7 - 6.4 % Diabetic >or= 6.5 % Please note range changes. Performed By: #### L 100.0500, L500.4050 #### [facility] [address] [place], [address] 36on 05-15-2024 36 Called nursing facil dav[facility] and spoke with nurse ninfa. I relayed the message below and she verbalized understanding. Med req updated. Thank you! Normal [facility] 36 Please ask to increa se u500 to 100 units 3 times daily with meals thank you Normal [facility] 36 Patient's recent BGL is below for your review. Thank you! Current DM regimen: Humulin R U500(95 units TID) Lantus (30 units BID) Normal [facility] CBC-Complete Blood Cnt No Di ffon 05-03-2024 Erythrocyte distribution width (RBC) [Ratio] 13.3 % Normal 11.6-14.6 [facility] Comment on above: Order Comment: 103-1 Performed By: #### L 100.0500, L500.2500 #### [facility] [address] [place], [address] Hematocrit (Bld) [Volume fraction] 33.9 % Low 37-47 [facility] Comment on above: Order Comment: 103-1 Performed By: #### L 100.0500, L500.2500 #### [facility] [address] [place], [address] Hemoglobin (Bld) [Mass/Vol] 10.6 g/dL Low 12.0-15.0 [facility] Comment on above: Order Comment: 103-1 Performed By: #### L 100.0500, L500.2500 #### [facility] [address] [place], [address] MCH (RBC) [Entitic mass] 26.7 pg Low 27.0-32.0 [facility] Comment on above: Order Comment: 103-1 Performed By: #### L 100.0500, L500.2500 #### [facility] [address] [place], [address] MCHC (RBC) [Mass/Vol] 31.3 g/dL Low 32-[address] [facility] Comment on above: Order Comment: 103-1 Performed By: #### L 100.0500, L500.2500 #### [facility] [address] [place], [address] MCV (RBC) [Entitic vol] 85.4 fL Normal 81-99 [facility] Comment on above: Order Comment: 103-1 Performed By: #### L 100.0500, L500.2500 #### [facility] [address] [place], [address] Platelet mean volume (Bld) [Entitic vol] 10.3 fL Normal 6.2-12.0 [facility] Comment on above: Order Comment: 103-1 Performed By: #### L 100.0500, L500.2500 #### [facility] [address] [place], [address] Platelets (Bld) [#/Vol] 346 10*3/uL Normal 150-450 [facility] Comment on above: Order Comment: 103-1 Performed By: #### L 100.0500, L500.2500 #### [facility] [address] [place], [address] RBC (Bld) [#/Vol] 3.97 10*6/uL Low 4.2-5.4 [facility] Comment on above: Order Comment: 103-1 Performed By: #### L 100.0500, L500.2500 #### [facility] [address] [place], [address] RDW SD 41.8 fl Normal 35.1-43.9 [facility] Comment on above: Order Comment: 103-1 Performed By: #### L 100.0500, L500.2500 #### [facility] [address] [place], [address] WBC (Bld) [#/Vol] 7.7 10*3/uL Normal 4.4-11.0 [facility] Comment on above: Order Comment: 103-1 Performed By: #### L 100.0500, L500.2500 #### [facility] [address] [place], [address] Comprehensive Metabolic Prof ilon 05-03-2024 Albumin [Mass/Vol] 3.0 g/dL Low 3.2-5.0 [facility] Comment on above: Order Comment: 103-1 Performed By: #### L 100.0500, L500.2500 #### [facility] [address] [place], [address] Albumin/Globulin [Mass ratio] 0.8 {ratio} Low 0.9-2.4 [facility] Comment on above: Order Comment: 103-1 Performed By: #### L 100.0500, L500.2500 #### [facility] [address] [place], [address] ALK P 174 U/L High 45-117 [facility] Comment on above: Order Comment: 103-1 Performed By: #### L 100.0500, L500.2500 #### [facility] [address] [place], [address] ALT [Catalytic activity/Vol] 21 U/L Normal 13-56 [facility] Comment on above: Order Comment: 103-1 Performed By: #### L 100.0500, L500.2500 #### [facility] [address] [place], [address] AST [Catalytic activity/Vol] 9 U/L Low 15-37 [facility] Comment on above: Order Comment: 103-1 Performed By: #### L 100.0500, L500.2500 #### [facility] [address] [place], [address] Bilirubin [Mass/Vol] 0.50 mg/dL Normal 0.20-1.00 [facility] Comment on above: Order Comment: 103-1 Result Comment: For patients on eltrombopag therapy, use of Dimension [place] TBIL is not recommended. Performed By: #### L 100.0500, L500.2500 #### [facility] [address] [place], [address] BUN/CRE 22.3 RATIO High 10-20 [facility] Comment on above: Order Comment: 103-1 Performed By: #### L 100.0500, L500.2500 #### [facility] [address] [place], [address] CA,Total 9.0 mg/dL Normal 8.5-10.1 [facility] Comment on above: Order Comment: 103-1 Performed By: #### L 100.0500, L500.2500 #### [facility] [address] [place], [address] Chloride [Moles/Vol] 103 mmol/L Normal 98-107 [facility] Comment on above: Order Comment: 103-1 Performed By: #### L 100.0500, L500.2500 #### [facility] [address] [place], [address] CO2 [Moles/Vol] 28.0 mmol/L Normal 21.0-32.0 [facility] Comment on above: Order Comment: 103-1 Performed By: #### L 100.0500, L500.2500 #### [facility] [address] [place], [address] Creatinine [Mass/Vol] 0.81 mg/dL Normal 0.55-1.[address] [facility] Comment on above: Order Comment: 103-1 Result Comment: The validity of the calculated GFR GFRAA in patients over 70 years has not been determined. Clinical correlation is essential. Performed By: #### L 100.0500, L500.2500 #### [facility] [address] [place], [address] EST GFR - AA 94 mL/min Normal >60 [facility] Comment on above: Order Comment: 103-1 Result Comment: Afri can [place] GFR Calc Performed By: #### L 100.0500, L500.2500 #### [facility] [address] [place], [address] GAP 4 Low 5-15 [facility] Comment on above: Order Comment: 103-1 Performed By: #### L 100.0500, L500.2500 #### [facility] [address] [place], [address] GFR/1.73 sq M.predicted among non-blacks MDRD (S/P/Bld) [Vol rate/Area] 78 mL/min/{1.73_m2} Normal >60 [facility] Comment on above: Order Comment: 103-1 Result Comment: Non- GFR Calc Performed By: #### L 100.0500, L500.2500 #### [facility] [address] [place], [address] Globulin (S) [Mass/Vol] 3.7 g/dL Normal 2.2-4.2 [facility] Comment on above: Order Comment: 103-1 Performed By: #### L 100.0500, L500.2500 #### [facility] [address] [place], [address] Glucose [Mass/Vol] 316 mg/dL High 74-106 [facility] Comment on above: Order Comment: 103-1 Result Comment: Gluc ose result greater than or equal to 200 mg/dL suggests DIABETES MELLITUS per A.D.A. criteria. Performed By: #### L 100.0500, L500.2500 #### [facility] [address] [place], [address] Potassium [Moles/Vol] 4.1 mmol/L Normal 3.5-5.[address] [facility] Comment on above: Order Comment: 103-1 Performed By: #### L 100.0500, L500.2500 #### [facility] [address] [place], [address] Sodium [Moles/Vol] 135 mmol/L Low 136-145 [facility] Comment on above: Order Comment: 103-1 Performed By: #### L 100.0500, L500.2500 #### [facility] [address] [place], [address] T PROT 6.7 g/dL Normal 6.4-8.2 [facility] Comment on above: Order Comment: 103-1 Performed By: #### L 100.0500, L500.2500 #### [facility] [address] [place], [address] Urea nitrogen [Mass/Vol] 18 mg/dL Normal 7-18 [facility] Comment on above: Order Comment: 103-1 Performed By: #### L 100.0500, L500.2500 #### [facility] [address] [place], [address] Laboratory - Chemistry and C hemistry - challengeon 01-27-2024 Glucose [Mass/Vol] 143 mg/dL High 70 - 100 mg/dL [facility] No Panel Informationon 01-26 Interpretation and review of laboratory results Abnormal [facility] Performed by: [facility], [address] [place] [address] CLIA ID: [id number] [facility] Radiology Study observation (narrative) [facility] - Chemistry and C hemistry - challengeon 01-26-2024 Glucose [Mass/Vol] 101 mg/dL High 70 - 100 mg/dL [facility] Glucose [Mass/Vol] 111 mg/dL High 70 - 100 mg/dL [facility] Glucose [Mass/Vol] 102 mg/dL High 70 - 100 mg/dL [facility] No Panel Informationon 01-25 Interpretation and review of laboratory results Abnormal [facility] Performed by: [facility], [address] [place] [address], [facility] [address] CLIA ID: [id number] [facility] Interpretation and review of laboratory results Abnormal [facility] Performed by: [facility], [address] [place] [address], [facility] [address] CLIA ID: [id number] [facility] Interpretation and review of laboratory results Abnormal [facility] Performed by: [facility], [address] [place] [address], [facility] [address] CLIA ID: [id number] [facility] Radiology Study observation (narrative) [facility] Radiology Study observation (narrative) [facility] Radiology Study observation (narrative) [facility] CBC W Auto Differential pane l (Bld)on 01-22-2024 Basophils (Bld) [#/Vol] 0.1 10*3/uL 0.0 - 0.2 10*3/uL [facility] Basophils/100 WBC (Bld) 0.5 % 0.0 - 2.0 % [facility] Eosinophils (Bld) [#/Vol] 0.1 10*3/uL 0.0 - 0.5 10*3/uL [facility] Eosinophils/100 WBC (Bld) 0.8 % 0.0 - 6.0 % [facility] Erythrocyte distribution width (RBC) [Ratio] 14.3 % 11.5 - 15.0 % [facility] Hematocrit (Bld) [Volume fraction] 35.6 % Male: 40.0-52.0 ; Female: 35.0-47.0 [facility] Hemoglobin (Bld) [Mass/Vol] 11.3 g/dL Low 11.7 - 18.0 g/dL [facility] Immature granulocytes (Bld) [#/Vol] 0.1 10*3/uL High NINF - 0.1 10*3/uL [facility] Immature granulocytes/100 WBC (Bld) 0.7 % 0.0 - 2.0 % [facility] Interpretation and review of laboratory results Abnormal [facility] Lymphocytes (Bld) [#/Vol] 1.4 10*3/uL 1.0 - 4.3 10*3/uL [facility] Lymphocytes/100 WBC (Bld) 14.3 % Low 15.0 - 45.0 % [facility] MCH (RBC) [Entitic mass] 27.5 pg 26.0 - 34.0 pg [facility] MCHC (RBC) [Mass/Vol] 31.7 % 30.5 - 36.0 % [facility] MCV (RBC) [Entitic vol] 86.6 fL 77.0 - 99.0 fL [facility] Monocytes (Bld) [#/Vol] 0.6 10*3/uL 0.0 - 0.9 10*3/uL [facility] Monocytes/100 WBC (Bld) 5.9 % 5.0 - 13.0 % [facility] Neutrophils (Bld) [#/Vol] 7.8 10*3/uL High 1.8 - 7.5 10*3/uL [facility] Neutrophils/100 WBC (Bld) 77.8 % 38.0 - 82.0 % [facility] Nucleated RBC/100 WBC (Bld) [Ratio] 0.0 % [facility] Platelet mean volume (Bld) [Entitic vol] 10.3 fL 9.0 - 12.7 fL [facility] Platelets (Bld) [#/Vol] 511 10*3/uL High 140 - 440 10*3/uL [facility] RBC (Bld) [#/Vol] 4.11 10*6/uL Male: 4.40-5.90; Female: 3.80-5.20 [facility] WBC (Bld) [#/Vol] 10.0 10*3/uL 3.6 - 10.7 10*3/uL [facility] CT Abdomen and Pelvis W cont rast Erica 01-22-2024 Questionable enhance ment of the bilateral renal collecting system. Correlation with urinalysis is recommended. Otherwise no evidence of acute pathology within the abdomen or pelvis. Stable 8 mm solid pulmonary nodule in the right middle lobe dating back to CT from 06/28/2023. Continued follow-up per Fleischner criteria is recommended. 2017 - UPDATED [employer] GUIDELINES FOR MANAGEMENT OF SMALL PULMONARY NODULES DETECTED ON CT Note: Recommendations do not apply for lung cancer screening, patients with immunosuppression or with known cancer. Dimensions are average of long and short axis rounded to the millimeter SOLITARY NODULE: LOW RISK PATIENT <6mm - No follow up 6-8mm - 6-12 months, then consider 18-24 months >8mm - PET/CT, Bx or followup in 3 months SOLITARY NODULE: HIGH RISK PATIENT <6mm - Optional 6-12 months (suspicious morphology or upper lobe) 6-8mm - 6-12 months, then 18-24 months >8mm - PET/CT, Bx or followup in 3 months Report Dictated on Electronically Signed By: Brandon Morgan MD Electronically Signed Date/Time: 01/22/2024 4:54 AM [facility] 1965 [id number] Exam Date/Time: 01/22/2024 04:15 Procedure: CT ABDOMEN PELVIS W CONTRAST Ordering Provider: MORRIS TIMOTHY Reason For Exam: Abdominal pain, acute, nonlocalized CT ABDOMEN AND PELVIS WITH CONTRAST CLINICAL INDICATION: Abdominal pain. TECHNIQUE: Transaxial sequence through the abdomen and pelvis with 3 mm reconstruction following oral contrast with dynamic intravenous infusion of 75 mL of 370 mg% contrast media. Coronal and sagittal reconstructions included. Dose reduction was employed with automated exposure control. COMPARISON: 12/31/2023 CT abdomen and pelvis FINDINGS: Evaluation limited secondary to patient arm positioning resulting in streak artifact. Lower chest: Mild bibasilar atelectasis without evidence of pleural effusion or focal consolidation. Stable 8 mm solid pulmonary nodule in the right middle lobe. The heart is normal in size without evidence of pericardial effusion. The distal esophagus is unremarkable. Liver: The liver is normal in size without evidence of focal liver lesion. Biliary tree: Intrahepatic and extrahepatic ducts are nondilated. Gallbladder: Cholelithiasis. Pancreas: The pancreas appears unremarkable without evidence of ductal dilatation or mass. Spleen: The spleen is normal in size. No focal lesion is identified. Adrenals: Bilateral adrenal glands appear normal. Kidneys: The bilateral kidneys are normal in size and enhance symmetrically. No hydroureteronephrosis or nephroureterolithiasis. Questionable enhancement of the bilateral renal collecting systems. Bladder: The urinary bladder appears normal without evidence of wall thickening. Pelvic organs/viscera: No mass identified Bowel: The stomach is unremarkable. The small and large bowel are normal in caliber without evidence of wall thickening. Retroperitoneal/mesenter ic lymphadenopathy: There is no free fluid, loculated fluid collection, or free air. No evidence of abdominal pelvic lymphadenopathy. Aorta: There is no aneurysmal dilatation of the abdominal aorta. Abdominal wall: The soft tissues appear unremarkable. Bones: No evidence of acute fracture or dislocation. [facility] Brandon Morgan MD - 01/22/2024 Patient Name: WILL JACINTO : 1965 Exam Date/Time: 01/22/2024 04:15 Procedure: CT ABDOMEN PELVIS W CONTRAST Ordering Provider: MORRIS TIMOTHY Reason For Exam: Abdominal pain, acute, nonlocalized CT ABDOMEN AND PELVIS WITH CONTRAST CLINICAL INDICATION: Abdominal pain. TECHNIQUE: Transaxial sequence through the abdomen and pelvis with 3 mm reconstruction following oral contrast with dynamic intravenous infusion of 75 mL of 370 mg% contrast media. Coronal and sagittal reconstructions included. Dose reduction was employed with automated exposure control. COMPARISON: 12/31/2023 CT abdomen and pelvis FINDINGS: Evaluation limited secondary to patient arm positioning resulting in streak artifact. Lower chest: Mild bibasilar atelectasis without evidence of pleural effusion or focal consolidation. Stable 8 mm solid pulmonary nodule in the right middle lobe. The heart is normal in size without evidence of pericardial effusion. The distal esophagus is unremarkable. Liver: The liver is normal in size without evidence of focal liver lesion. Biliary tree: Intrahepatic and extrahepatic ducts are nondilated. Gallbladder: Cholelithiasis. Pancreas: The pancreas appears unremarkable without evidence of ductal dilatation or mass. Spleen: The spleen is normal in size. No focal lesion is identified. Adrenals: Bilateral adrenal glands appear normal. Kidneys: The bilateral kidneys are normal in size and enhance symmetrically. No hydroureteronephrosis or nephroureterolithiasis. Questionable enhancement of the bilateral renal collecting systems. Bladder: The urinary bladder appears normal without evidence of wall thickening. Pelvic organs/viscera: No mass identified Bowel: The stomach is unremarkable. The small and large bowel are normal in caliber without evidence of wall thickening. Retroperitoneal/mesenter ic lymphadenopathy: There is no free fluid, loculated fluid collection, or free air. No evidence of abdominal pelvic lymphadenopathy. Aorta: There is no aneurysmal dilatation of the abdominal aorta. Abdominal wall: The soft tissues appear unremarkable. Bones: No evidence of acute fracture or dislocation. IMPRESSION: Questionable enhancement of the bilateral renal collecting system. Correlation with urinalysis is recommended. Otherwise no evidence of acute pathology within the abdomen or pelvis. Stable 8 mm solid pulmonary nodule in the right middle lobe dating back to CT from 06/28/2023. Continued follow-up per Fleischner criteria is recommended. 2017 - UPDATED [employer] GUIDELINES FOR MANAGEMENT OF SMALL PULMONARY NODULES DETECTED ON CT Note: Recommendations do not apply for lung cancer screening, patients with immunosuppression or with known cancer. Dimensions are average of long and short axis rounded to the millimeter SOLITARY NODULE: LOW RISK PATIENT <6mm - No follow up 6-8mm - 6-12 months, then consider 18-24 months >8mm - PET/CT, Bx or followup in 3 months SOLITARY NODULE: HIGH RISK PATIENT <6mm - Optional 6-12 months (suspicious morphology or upper lobe) 6-8mm - 6-12 months, then 18-24 months >8mm - PET/CT, Bx or followup in 3 months Report Dictated on Electronically Signed By: Brandon Morgan MD Electronically Signed Date/Time: 01/22/2024 4:54 AM EDT [facility] Study observation (narrative) [facility] CT Abdomen and Pelvis W cont rast IVOrdered By: Brandon Morgan on 01-22-2024 [employer] Work Phone: Comprehensive metabolic 1998 panelon 01-22-2024 Albumin [Mass/Vol] 4.2 g/dL 3.5 - 5.0 g/dL [facility] ALP [Catalytic activity/Vol] 121 U/L 38 - 126 U/L [facility] ALT [Catalytic activity/Vol] 32 U/L Male: 0-49 U/L; Female: 0-34 U/L [facility] Anion gap [Moles/Vol] 11 mmol/L 3 - 13 mmol/L [facility] AST [Catalytic activity/Vol] 26 U/L 15 - 46 U/L [facility] Bilirubin [Mass/Vol] 0.5 mg/dL 0.2 - 1 .3 mg/dL [facility] Calcium [Mass/Vol] 9.6 mg/dL 8.4 - 10. 4 mg/dL [facility] Chloride [Moles/Vol] 100 mmol/L 98 - 10 7 mmol/L [facility] CO2 [Moles/Vol] 25 mmol/L 22 - 30 mmol/L [facility] Creatinine [Mass/Vol] 0.61 mg/dL Male: 0.66-1.25 mg/dL; Female: 0.52-1.04 mg/dL [facility] GFR/1.73 sq M.predicted MDRD (S/P/Bld) [Vol rate/Area] - PINF [facility] Comment on above: Calculation based on the Chronic Kidney Disease Epidemiology Collaboration (CKD-EPI) equation refit without adjustment for race Glucose [Mass/Vol] 81 mg/dL 70 - 100 mg/dL [facility] Potassium [Moles/Vol] 4.0 mmol/L 3.5 - 5.1 mmol/L [facility] Protein [Mass/Vol] 7.5 g/dL 6.3 - 8.2 g/dL [facility] Sodium [Moles/Vol] 136 mmol/L 135 - 145 mmol/L [facility] Urea nitrogen [Mass/Vol] 13 mg/dL Male: 9-20 mg/dL; Female: 7-17 mg/dL [facility] Laboratory - Chemistry and C hemistry - challengeon 01-22-2024 Lactate [Moles/Vol] 0.7 mmol/L 0.7 - 2. 0 mmol/L [facility] Lipase [Catalytic activity/Vol] 41 U/L 23 - 300 U/L [facility] Lipase [Catalytic activity/V ol]on 01-22-2024 Interpretation and review of laboratory results Normal [facility] No Panel Informationon 01-21 Interpretation and review of laboratory results Normal [facility] Urinalysis complete panel (U )Ordered By: Erickson Olmedo on 01-22-2024 Bacteria LM.HPF (Urine sed) [#/Area] Few Abnormal Negative /HPF [facility] Bilirubin Ql (U) Negative Negative mg/dL [facility] Clarity (U) Clear Clear [facility] Color (U) Light Yellow Lt. Yellow [facility] Epithelial cells.squamous LM.HPF (Urine sed) [#/Area] 0-2 [facility] Glucose Ql (U) Normal Normal (<70) mg/dL [facility] Hemoglobin Ql (U) 1.0 mg/dL Abnormal Negative [facility] Interpretation and review of laboratory results Abnormal [facility] Ketones (U) [Mass/Vol] Negative Negat bernard mg/dL [facility] Leukocyte esterase Test strip Ql (U) 75 Abnormal Negative Kat/uL [facility] Mucus LM.HPF (Urine sed) [#/Area] Few Negative /LPF [facility] Nitrite Ql (U) Negative Negative [facility] pH (U) 8.0 [pH] 5.0 - 8.0 pH [facility] Protein (U) [Mass/Vol] 100 mg/dL Abnormal Negative [facility] RBC LM.HPF (Urine sed) [#/Area] 26-50 Abnormal [facility] Specific gravity (U) [Rel density] 1.013 1.005 - 1.030 [facility] Urobilinogen (U) [Mass/Vol] Normal Normal (0-1) mg/dL [facility] WBC LM.HPF (Urine sed) [#/Area] 6-10 Abnormal [facility] Basophil percentageOrdered B y: Jared Guzman on 01-20-2024 Chloride [Moles/Vol] 104 mmol/L 98-107 [facility] Glucose [Mass/Vol] 159 mg/dL 74-106 [facility] Comment on above: Fasting Glucose resu lt greater than or equal to 126 mg/dL suggests DIABETES MELLITUS per A.D.A. criteria. Hemoglobin (Bld) [Mass/Vol] 9.6 g/dL 12.0-15.0 [facility] Potassium [Moles/Vol] 4.2 mmol/L 3.5-5.[address] [facility] Sodium [Moles/Vol] 137 mmol/L 136-145 [facility] WBC (Bld) [#/Vol] 7.7 10*3/uL 4.4-11.0 [facility] Determination of erythrocyte mean corpuscular volume (MCV)Ordered By: Jared Guzman on 01-20-2024 MCV (RBC) [Entitic vol] 88.3 fL 81-99 [facility] Erythrocyte distribution wid th ratioOrdered By: Jared Guzman on 01-20-2024 Erythrocyte distribution width (RBC) [Ratio] 14.5 % 11.6-14.6 [facility] Erythrocyte distribution wid th standard deviationOrdered By: Jared Guzman on 01-20-2024 Erythrocyte distribution width (RBC) [Entitic vol] 46.4 fL 35.1-43.9 [facility] Hematocrit Auto (Bld) [Volum e fraction]Ordered By: Jared Guzman on 01-20-2024 Hematocrit (Bld) [Volume fraction] 30.9 % 37-47 [facility] Laboratory - Chemistry and C hemistry - challengeOrdered By: Jared Guzman on 01-20-2024 CO2 [Moles/Vol] 26.0 mmol/L 21.0-32.0 [facility] Urea nitrogen/Creatinine [Mass ratio] 17.5 mg/mg 10-20 [facility] - Hematology and Cell countsOrdered By: Jared Guzman on 01-20-2024 MCH (RBC) [Entitic mass] 27.4 pg 27.0-32.0 [facility] MCHC (RBC) [Mass/Vol] 31.1 g/dL 32-[address] [facility] Platelet mean volume (Bld) [Entitic vol] 10.0 fL 6.2-12.0 [facility] Platelets (Bld) [#/Vol] 411 10*3/uL 150-450 [facility] No Panel InformationOrdered By: Jared Guzman on 01-20-2024 Estimated GFR (MDRD) Amer 95 mL/min >60 [facility] Comment on above: GFR Calc Estimated GFR (MDRD) Non-Af Amer 78 mL/min >60 [facility] Comment on above: Non- GFR Calc RBC Auto (Bld) [#/Vol]Ordere d By: Jared Guzman on 01-20-2024 RBC (Bld) [#/Vol] 3.50 10*6/uL 4.2-5.4 [facility] Serum or plasma calcium mauricio urement (mass/volume)Ordered By: Jared Guzman on 01-20-2024 Calcium [Mass/Vol] 8.8 mg/dL 8.5-10.1 [facility] Serum or plasma creatinine m easurement (mass/volume)Ordered By: Jared Guzman on 01-20-2024 Creatinine [Mass/Vol] 0.80 mg/dL 0.55-1.[address] [facility] Comment on above: The validity of the calculated GFR & GFRAA in patients over 70 years has not been determined. Clinical correlation is essential. Serum or plasma urea nitroge n measurement (mass/volume)Ordered By: Jared Guzman on 01-20-2024 Urea nitrogen [Mass/Vol] 14 mg/dL 7-18 [facility] Thin prep Papanicolaou smear with manual screeningOrdered By: Jared Guzman on 01-20-2024 Thin prep Papanicolaou smear with manual screening 7 5-15 [facility] Basophil percentageOrdered B y: Jared Guzman on 01-17-2024 Bilirubin [Mass/Vol] 0.50 mg/dL 0.20-1.00 [facility] Comment on above: For patients on eltr ombopag therapy, use of Dimension [place] TBIL is not recommended. Chloride [Moles/Vol] 102 mmol/L 98-107 [facility] Glucose [Mass/Vol] 325 mg/dL 74-106 [facility] Comment on above: Glucose result great er than or equal to 200 mg/dLsuggests DIABETES MELLITUS per A.D.A. criteria. Hemoglobin (Bld) [Mass/Vol] 9.7 g/dL 12.0-15.0 [facility] Potassium [Moles/Vol] 4.4 mmol/L 3.5-5.[address] [facility] Protein [Mass/Vol] 6.2 g/dL 6.4-8.2 [facility] Sodium [Moles/Vol] 134 mmol/L 136-145 [facility] WBC (Bld) [#/Vol] 7.1 10*3/uL 4.4-11.0 [facility] Determination of erythrocyte mean corpuscular volume (MCV)Ordered By: Jared Guzman on 01-17-2024 MCV (RBC) [Entitic vol] 88.0 fL 81-99 [facility] Erythrocyte distribution wid th ratioOrdered By: Jared Guzman on 01-17-2024 Erythrocyte distribution width (RBC) [Ratio] 14.2 % 11.6-14.6 [facility] Erythrocyte distribution wid th standard deviationOrdered By: Jared Guzman on 01-17-2024 Erythrocyte distribution width (RBC) [Entitic vol] 45.7 fL 35.1-43.9 [facility] Hematocrit Auto (Bld) [Volum e fraction]Ordered By: Jared Guzman on 01-17-2024 Hematocrit (Bld) [Volume fraction] 31.5 % 37-47 [facility] - Chemistry and C hemistry - challengeOrdered By: Jared Guzman on 01-17-2024 Albumin/Globulin [Mass ratio] 0.9 {ratio} 0.9-2.4 [facility] ALP [Catalytic activity/Vol] 142 U/L 45-117 [facility] ALT [Catalytic activity/Vol] 22 U/L 13-56 [facility] CO2 [Moles/Vol] 24.0 mmol/L 21.0-32.0 [facility] Globulin (S) [Mass/Vol] 3.3 g/dL 2.2-4.2 [facility] Urea nitrogen/Creatinine [Mass ratio] 19.2 mg/mg 10-20 [facility] - Hematology and Cell countsOrdered By: Jared Guzman on 01-17-2024 MCH (RBC) [Entitic mass] 27.1 pg 27.0-32.0 [facility] MCHC (RBC) [Mass/Vol] 30.8 g/dL 32-[address] [facility] Platelet mean volume (Bld) [Entitic vol] 10.5 fL 6.2-12.0 [facility] Platelets (Bld) [#/Vol] 372 10*3/uL 150-450 [facility] No Panel InformationOrdered By: Jared Guzman on 01-17-2024 Estimated GFR (MDRD) Amer 85 mL/min >60 [facility] Comment on above: GFR Calc Estimated GFR (MDRD) Non-Af Amer 70 mL/min >60 [facility] Comment on above: Non- GFR Calc RBC Auto (Bld) [#/Vol]Ordere d By: Jared Guzman on 01-17-2024 RBC (Bld) [#/Vol] 3.58 10*6/uL 4.2-5.4 [facility] Serum or plasma calcium mauricio urement (mass/volume)Ordered By: Jared Guzman on 01-17-2024 Calcium [Mass/Vol] 8.6 mg/dL 8.5-10.1 [facility] Serum or plasma creatinine m easurement (mass/volume)Ordered By: Jared Guzman on 01-17-2024 Creatinine [Mass/Vol] 0.88 mg/dL 0.55-1.[address] [facility] Comment on above: The validity of the calculated GFR & GFRAA in patients over 70 years has not been determined. Clinical correlation is essential. Serum or plasma urea nitroge n measurement (mass/volume)Ordered By: Jared Guzman on 01-17-2024 Urea nitrogen [Mass/Vol] 17 mg/dL 7-18 [facility] Thin prep Papanicolaou smear with manual screeningOrdered By: Jared Guzman on 01-17-2024 Thin prep Papanicolaou smear with manual screening 2.9 g/dL 3.2-5.0 [facility] Thin prep Papanicolaou smear with manual screening 13 U/L 15-37 [facility] Thin prep Papanicolaou smear with manual screening 8 5-15 [facility] Whole blood hemoglobin A1c/t otal hemoglobin ratio (mass fraction)Ordered By: Jared Guzman on 01-17-2024 HbA1c (Bld) [Mass fraction] 8.1 % 3.8-5.6 [facility] Comment on above: Normal < 5.7 % Predi abetic 5.7 - 6.4 % Diabetic >or= 6.5 % Please note range changes. Basophil percentageOrdered B y: Jared Guzman on 01-13-2024 Chloride [Moles/Vol] 107 mmol/L 98-107 [facility] Cholesterol [Mass/Vol] 147 mg/dL <200 [facility] Comment on above: <200 mg/dL Desirable 200-240 mg/dL Borderline >240 mg/dL High Risk Glucose [Mass/Vol] 72 mg/dL 74-106 [facility] Hemoglobin (Bld) [Mass/Vol] 9.4 g/dL 12.0-15.0 [facility] Potassium [Moles/Vol] 3.9 mmol/L 3.5-5.[address] [facility] Sodium [Moles/Vol] 141 mmol/L 136-145 [facility] Triglyceride [Mass/Vol] 137 mg/dL <199 [facility] Comment on above: The drugs N-Acetylcy steine and Metamizole may falsely depress this assay.Serum Triglycerides Reference Interval Normal <150 mg/dL Borderline high 150 - 199 mg/dL High 200 - 499 mg/dL Very High > or = 500 mg/dL WBC (Bld) [#/Vol] 7.1 10*3/uL 4.4-11.0 [facility] Determination of erythrocyte mean corpuscular volume (MCV)Ordered By: Jared Guzman on 01-13-2024 MCV (RBC) [Entitic vol] 87.4 fL 81-99 [facility] Erythrocyte distribution wid th ratioOrdered By: Jared Guzman on 01-13-2024 Erythrocyte distribution width (RBC) [Ratio] 14.6 % 11.6-14.6 [facility] Erythrocyte distribution wid th standard deviationOrdered By: Jared Guzman on 01-13-2024 Erythrocyte distribution width (RBC) [Entitic vol] 46.7 fL 35.1-43.9 [facility] Hematocrit Auto (Bld) [Volum e fraction]Ordered By: Jared Guzman on 01-13-2024 Hematocrit (Bld) [Volume fraction] 29.9 % 37-47 [facility] - Chemistry and C hemistry - challengeOrdered By: Jared Guzman on 01-13-2024 Cholesterol in HDL [Mass/Vol] 37 mg/dL >40 [facility] Comment on above: The drugs N-Acetylcy steine and Metamizole may falsely depress this assay. Reference Range HDL <40 mg/dL Low HDL Cholesterol HDL >or= 60 mg/dL High HDL Cholesterol Cholesterol in LDL [Mass/Vol] 83 mg/dL 0-130 [facility] CO2 [Moles/Vol] 26.0 mmol/L 21.0-32.0 [facility] Urea nitrogen/Creatinine [Mass ratio] 30.8 mg/mg 10-20 [facility] - Hematology and Cell countsOrdered By: Jared Guzman on 01-13-2024 MCH (RBC) [Entitic mass] 27.5 pg 27.0-32.0 [facility] MCHC (RBC) [Mass/Vol] 31.4 g/dL 32-[address] [facility] Platelet mean volume (Bld) [Entitic vol] 9.8 fL 6.2-12.0 [facility] Platelets (Bld) [#/Vol] 380 10*3/uL 150-450 [facility] No Panel InformationOrdered By: Jared Guzman on 01-13-2024 Estimated GFR (MDRD) Amer 129 mL/min >60 [facility] Comment on above: GFR Calc Estimated GFR (MDRD) Non-Af Amer 106 mL/min >60 [facility] Comment on above: Non- GFR Calc VLDL Cholesterol 27 mg/dL 5-40 [facility] RBC Auto (Bld) [#/Vol]Ordere d By: Jared Guzman on 01-13-2024 RBC (Bld) [#/Vol] 3.42 10*6/uL 4.2-5.4 [facility] Serum or plasma calcium mauricio urement (mass/volume)Ordered By: Jared Guzman on 01-13-2024 Calcium [Mass/Vol] 8.7 mg/dL 8.5-10.1 [facility] Serum or plasma creatinine m easurement (mass/volume)Ordered By: Jared Guzman on 01-13-2024 Creatinine [Mass/Vol] 0.62 mg/dL 0.55-1.[address] [facility] Comment on above: The validity of the calculated GFR & GFRAA in patients over 70 years has not been determined. Clinical correlation is essential. Serum or plasma urea nitroge n measurement (mass/volume)Ordered By: Jared Guzman on 01-13-2024 Urea nitrogen [Mass/Vol] 19 mg/dL 7-18 [facility] Thin prep Papanicolaou smear with manual screeningOrdered By: Jared Guzman on 01-13-2024 Thin prep Papanicolaou smear with manual screening 8 5-15 [facility] Basophil percentageOrdered B y: Jared Guzman on 12-31-2023 Chloride [Moles/Vol] 101 mmol/L 98-107 [facility] Glucose [Mass/Vol] 87 mg/dL 74-106 [facility] Hemoglobin (Bld) [Mass/Vol] 10.1 g/dL 12.0-15.0 [facility] Potassium [Moles/Vol] 4.8 mmol/L 3.5-5.[address] [facility] Sodium [Moles/Vol] 133 mmol/L 136-145 [facility] WBC (Bld) [#/Vol] 11.6 10*3/uL 4.4-11.0 [facility] Determination of erythrocyte mean corpuscular volume (MCV)Ordered By: Jared Guzman on 12-31-2023 MCV (RBC) [Entitic vol] 87.8 fL 81-99 [facility] Erythrocyte distribution wid th ratioOrdered By: Jared Guzman on 12-31-2023 Erythrocyte distribution width (RBC) [Ratio] 14.1 % 11.6-14.6 [facility] Erythrocyte distribution wid th standard deviationOrdered By: Jared Guzman on 12-31-2023 Erythrocyte distribution width (RBC) [Entitic vol] 45.6 fL 35.1-43.9 [facility] Hematocrit Auto (Bld) [Volum e fraction]Ordered By: Jared Guzman on 12-31-2023 Hematocrit (Bld) [Volume fraction] 32.5 % 37-47 [facility] - Chemistry and C hemistry - challengeOrdered By: Jared Guzman on 12-31-2023 CO2 [Moles/Vol] 24.0 mmol/L 21.0-32.0 [facility] Urea nitrogen/Creatinine [Mass ratio] 12.1 mg/mg 10-20 [facility] - Hematology and Cell countsOrdered By: Jared Guzman on 12-31-2023 MCH (RBC) [Entitic mass] 27.3 pg 27.0-32.0 [facility] MCHC (RBC) [Mass/Vol] 31.1 g/dL 32-36 [facility] Platelet mean volume (Bld) [Entitic vol] 10.1 fL 6.2-12.0 [facility] Platelets (Bld) [#/Vol] 413 10*3/uL 150-450 [facility] No Panel InformationOrdered By: Jared Guzman on 12-31-2023 Estimated GFR (MDRD) Amer 16 mL/min >60 [facility] Comment on above: GFR Calc Estimated GFR (MDRD) Non-Af Amer 13 mL/min >60 [facility] Comment on above: Non- GFR Calc RBC Auto (Bld) [#/Vol]Ordere d By: Jared Guzman on 12-31-2023 RBC (Bld) [#/Vol] 3.70 10*6/uL 4.2-5.4 [facility] Serum or plasma calcium mauricio urement (mass/volume)Ordered By: Jared Guzman on 12-31-2023 Calcium [Mass/Vol] 8.9 mg/dL 8.5-10.1 [facility] Serum or plasma creatinine m easurement (mass/volume)Ordered By: Jared Guzman on 12-31-2023 Creatinine [Mass/Vol] 3.80 mg/dL 0.55-1.[address] [facility] Comment on above: The validity of the calculated GFR & GFRAA in patients over 70 years has not been determined. Clinical correlation is essential. Serum or plasma urea nitroge n measurement (mass/volume)Ordered By: Jared Guzman on 12-31-2023 Urea nitrogen [Mass/Vol] 46 mg/dL 7-18 [facility] Thin prep Papanicolaou smear with manual screeningOrdered By: Jared Guzman on 12-31-2023 Thin prep Papanicolaou smear with manual screening 8 5-15 [facility] Basophil percentageOrdered B y: Jared Guzman on 12-30-2023 Chloride [Moles/Vol] 103 mmol/L 98-107 [facility] Glucose [Mass/Vol] 116 mg/dL 74-106 [facility] Comment on above: Fasting Glucose resu lt from 100 to 125 mg/dL suggests IMPAIRED HOMEOSTASIS per A.D.A. criteria. Hemoglobin (Bld) [Mass/Vol] 10.6 g/dL 12.0-15.0 [facility] Potassium [Moles/Vol] 4.4 mmol/L 3.5-5.[address] [facility] Sodium [Moles/Vol] 133 mmol/L 136-145 [facility] WBC (Bld) [#/Vol] 13.1 10*3/uL 4.4-11.0 [facility] Determination of erythrocyte mean corpuscular volume (MCV)Ordered By: Jared Guzman on 12-30-2023 MCV (RBC) [Entitic vol] 86.8 fL 81-99 [facility] Erythrocyte distribution wid th ratioOrdered By: Jared Guzman on 12-30-2023 Erythrocyte distribution width (RBC) [Ratio] 13.6 % 11.6-14.6 [facility] Erythrocyte distribution wid th standard deviationOrdered By: Jared Guzman on 12-30-2023 Erythrocyte distribution width (RBC) [Entitic vol] 43.0 fL 35.1-43.9 [facility] Hematocrit Auto (Bld) [Volum e fraction]Ordered By: Jared Guzman on 12-30-2023 Hematocrit (Bld) [Volume fraction] 34.2 % 37-47 [facility] - Chemistry and C hemistry - challengeOrdered By: Jared Guzman on 12-30-2023 CO2 [Moles/Vol] 24.0 mmol/L 21.0-32.0 [facility] Urea nitrogen/Creatinine [Mass ratio] 19.3 mg/mg 10-20 [facility] - Hematology and Cell countsOrdered By: Jared Guzman on 12-30-2023 MCH (RBC) [Entitic mass] 26.9 pg 27.0-32.0 [facility] MCHC (RBC) [Mass/Vol] 31.0 g/dL 32-[address] [facility] Platelet mean volume (Bld) [Entitic vol] 10.3 fL 6.2-12.0 [facility] Platelets (Bld) [#/Vol] 434 10*3/uL 150-450 [facility] No Panel InformationOrdered By: Jared Guzman on 12-30-2023 Estimated GFR (MDRD) Amer 42 mL/min >60 [facility] Comment on above: GFR Calc Estimated GFR (MDRD) Non-Af Amer 35 mL/min >60 [facility] Comment on above: Non- GFR Calc RBC Auto (Bld) [#/Vol]Ordere d By: Jared Guzman on 12-30-2023 RBC (Bld) [#/Vol] 3.94 10*6/uL 4.2-5.4 [facility] Serum or plasma calcium mauricio urement (mass/volume)Ordered By: Jared Guzman on 12-30-2023 Calcium [Mass/Vol] 9.4 mg/dL 8.5-10.1 [facility] Serum or plasma creatinine m easurement (mass/volume)Ordered By: Jared Guzman on 12-30-2023 Creatinine [Mass/Vol] 1.61 mg/dL 0.55-1.[address] [facility] Comment on above: The validity of the calculated GFR & GFRAA in patients over 70 years has not been determined. Clinical correlation is essential. Serum or plasma urea nitroge n measurement (mass/volume)Ordered By: Jared Guzman on 12-30-2023 Urea nitrogen [Mass/Vol] 31 mg/dL 7-18 [facility] Thin prep Papanicolaou smear with manual screeningOrdered By: Jared Guzman on 12-30-2023 Thin prep Papanicolaou smear with manual screening 6 5-15 [facility] Basic metabolic 1998 panelon 12-29-2023 Anion gap [Moles/Vol] 8 mmol/L 3 - 13 mmol/L [facility] Calcium [Mass/Vol] 9.2 mg/dL 8.4 - 10. 4 mg/dL [facility] Chloride [Moles/Vol] 99 mmol/L 98 - 10 7 mmol/L [facility] CO2 [Moles/Vol] 21 mmol/L Low 22 - 30 mmol/L [facility] Creatinine [Mass/Vol] 0.70 mg/dL Male: 0.66-1.25 mg/dL; Female: 0.52-1.04 mg/dL [facility] GFR/1.73 sq M.predicted MDRD (S/P/Bld) [Vol rate/Area] - PINF [facility] Comment on above: Calculation based on the Chronic Kidney Disease Epidemiology Collaboration (CKD-EPI) equation refit without adjustment for race Glucose [Mass/Vol] 341 mg/dL High 70 - 100 mg/dL [facility] [facility] Interpretation and review of laboratory results Abnormal [facility] Potassium [Moles/Vol] 5.3 mmol/L High 3.5 - 5.1 mmol/L [facility] Sodium [Moles/Vol] 128 mmol/L Low 135 - 145 mmol/L [facility] Urea nitrogen [Mass/Vol] 28 mg/dL Male: 9-20 mg/dL; Female: 7-17 mg/dL [facility] Basic metabolic 1998 panelOr dered By: Abner Vieyra on 12-29-2023 Anion gap [Moles/Vol] 7 mmol/L 3 - 13 mmol/L [facility] Calcium [Mass/Vol] 9.2 mg/dL 8.4 - 10. 4 mg/dL [facility] Chloride [Moles/Vol] 99 mmol/L 98 - 10 7 mmol/L [facility] CO2 [Moles/Vol] 23 mmol/L 22 - 30 mmol/L [facility] Creatinine [Mass/Vol] 0.79 mg/dL Male: 0.66-1.25 mg/dL; Female: 0.52-1.04 mg/dL [facility] GFR/1.73 sq M.predicted MDRD (S/P/Bld) [Vol rate/Area] 87.4 mL/min/{1.73_m2} - PINF [facility] Comment on above: Calculation based on the Chronic Kidney Disease Epidemiology Collaboration (CKD-EPI) equation refit without adjustment for race Glucose [Mass/Vol] 284 mg/dL High 70 - 100 mg/dL [facility] Interpretation and review of laboratory results Abnormal [facility] Potassium [Moles/Vol] 5.7 mmol/L High 3.5 - 5.1 mmol/L [facility] Sodium [Moles/Vol] 129 mmol/L Low 135 - 145 mmol/L [facility] Urea nitrogen [Mass/Vol] 36 mg/dL Male: 9-20 mg/dL; Female: 7-17 mg/dL [facility] CBC W Auto Differential pane l (Bld)Ordered By: Laney Rader on 12-29-2023 Basophils (Bld) [#/Vol] 0.1 10*3/uL 0.0 - 0.2 10*3/uL [facility] Basophils/100 WBC (Bld) 0.8 % 0.0 - 2.0 % [facility] Eosinophils (Bld) [#/Vol] 0.1 10*3/uL 0.0 - 0.5 10*3/uL [facility] Eosinophils/100 WBC (Bld) 0.7 % Low 1.0 - 6.0 % [facility] Erythrocyte distribution width (RBC) [Ratio] 14.5 % 11.5 - 14.5 % [facility] Hematocrit (Bld) [Volume fraction] 35.9 % Male: 40.0-52.0 %; Female: 35.0-47.0 % [facility] Hemoglobin (Bld) [Mass/Vol] 11.8 g/dL 11.7 - 18.0 g/dL [facility] Interpretation and review of laboratory results Abnormal [facility] Lymphocytes (Bld) [#/Vol] 1.6 10*3/uL 1.0 - 4.3 10*3/uL [facility] Lymphocytes/100 WBC (Bld) 12.3 % Low 20.0 - 40.0 % [facility] MCH (RBC) [Entitic mass] 27.4 pg 26.0 - 34.0 pg [facility] MCHC (RBC) [Mass/Vol] 32.9 % 32.0 - 36.0 % [facility] MCV (RBC) [Entitic vol] 83.3 fL 80.0 - 98.0 fL [facility] Monocytes (Bld) [#/Vol] 0.6 10*3/uL 0.0 - 0.8 10*3/uL [facility] Monocytes/100 WBC (Bld) 4.9 % 2.0 - 10.0 % [facility] Neutrophils (Bld) [#/Vol] 10.4 10*3/uL High 1.8 - 7.0 10*3/uL [facility] Neutrophils/100 WBC (Bld) 81.3 % High 40.0 - 80.0 % [facility] Nucleated RBC/100 WBC (Bld) [Ratio] 0.0 % [facility] Platelet mean volume (Bld) [Entitic vol] 7.9 fL 7.4 - 12.4 fL [facility] Platelets (Bld) [#/Vol] 388 10*3/uL 140 - 440 10*3/uL [facility] RBC (Bld) [#/Vol] 4.31 10*6/uL Male: 4.40-5.90; Female: 3.80-5.20 [facility] WBC (Bld) [#/Vol] 12.8 10*3/uL High 3.6 - 10.7 10*3/uL [facility] Laboratory - Chemistry and C hemistry - challengeon 12-29-2023 Glucose [Mass/Vol] 319 mg/dL High 70 - 100 mg/dL [facility] Glucose [Mass/Vol] 346 mg/dL High 70 - 100 mg/dL [facility] Glucose [Mass/Vol] 279 mg/dL High 70 - 100 mg/dL [facility] Beta hydroxybutyrate [Mass/Vol] 6.84 mg/dL High 0.20 - 2.81 mg/dL [facility] No Panel Informationon 12-29 P [place] 40 degrees [facility] NM Interval 168 ms [facility] QRS [place] -37 degrees [facility] QRSD Interval 117 ms [facility] QT Interval 414 ms [facility] QTC Interval 479 ms [facility] T Wave [place] 23 degrees [facility] Sinus rhythm Nonspecific IVCD with LAD Left ventricular hypertrophy Electronically Signed On 12-29-2023 06:52:01 EST by Edwin Bustos CV Edwin Cook MD - 12/29/2023 IMPRESSION: Sinus rhythm Nonspecific IVCD with LAD Left ventricular hypertrophy Electronically Signed On 12-29-2023 06:52:01 EST by Edwin Bustos [facility] Interpretation and review of laboratory results Abnormal [facility] Performed by: [facility], [address] [place] [address] CLIA ID: [id number] [facility] Interpretation and review of laboratory results Abnormal [facility] Performed by: [facility], [address] [place] [id number] CLIA ID: [id number] [facility] Interpretation and review of laboratory results Abnormal [facility] Performed by: [facility], [address] [place] [id number] CLIA ID: [id number] [facility] Interpretation and review of laboratory results Abnormal [facility] Radiology Study observation (narrative) [facility] Radiology Study observation (narrative) [facility] Radiology Study observation (narrative) [facility] Vital signson 12-29-2023 Heart rate 80 /min bpm [facility] Stomach Views for gastric emptying solid phase W radionuclide Jacob 12-23-2023 Abnormally delayed gastric emptying following solid meal. Report Dictated on Electronically Signed By: Edwin Paz MD Electronically Signed Date/Time: 12/23/2023 12:06 PM EST [facility] Patient Name: WILL ALVARADO : 1965 Exam Date/Time: 12/23/2023 11:45 Procedure: NM GASTRIC EMPTYING SOLID Ordering Provider: REAVES KRISTEN Reason For Exam: r11.2 SOLID PHASE GASTRIC EMPTYING STUDY CLINICAL INDICATION: Nausea and vomiting The patient was given a standard meal of 1 millicurie of technetium-99m sulfur colloid prepared with egg. Anterior and posterior images over the abdomen were obtained up to two hours after ingestion. TERESITA activity curves over the stomach were then calculated. COMPARISON: None FINDINGS: At one hour, there is 85 percent of original activity within the stomach. At two hours after ingestion, 78 percent of original activity remains within the stomach. Normal at two hours following ingestion is between 19 and 52 percent. [facility] Edwin Paz MD - 12/23/2023 Patient Name: WILL JACINTO : 1965 Exam Date/Time: 12/23/2023 11:45 Procedure: NM GASTRIC EMPTYING SOLID Ordering Provider: REAVES KRISTEN Reason For Exam: r11.2 SOLID PHASE GASTRIC EMPTYING STUDY CLINICAL INDICATION: Nausea and vomiting The patient was given a standard meal of 1 millicurie of technetium-99m sulfur colloid prepared with egg. Anterior and posterior images over the abdomen were obtained up to two hours after ingestion. TERESITA activity curves over the stomach were then calculated. COMPARISON: None FINDINGS: At one hour, there is 85 percent of original activity within the stomach. At two hours after ingestion, 78 percent of original activity remains within the stomach. Normal at two hours following ingestion is between 19 and 52 percent. IMPRESSION: Abnormally delayed gastric emptying following solid meal. Report Dictated on Electronically Signed By: Edwin Paz MD Electronically Signed Date/Time: 12/23/2023 12:06 PM EST [facility] Radiology Study observation (narrative) [facility] Stomach Views for gastric emptying solid phase W radionuclide POOrdered By: Edwin Paz on 12-23-2023 [facility] Basophil percentageOrdered B y: Jared Guzman on 12-22-2023 Chloride [Moles/Vol] 105 mmol/L 98-107 [facility] Glucose [Mass/Vol] 129 mg/dL 74-106 [facility] Comment on above: Fasting Glucose resu lt greater than or equal to 126 mg/dL suggests DIABETES MELLITUS per A.D.A. criteria. Hemoglobin (Bld) [Mass/Vol] 10.2 g/dL 12.0-15.0 [facility] Potassium [Moles/Vol] 4.8 mmol/L 3.5-5.[address] [facility] Sodium [Moles/Vol] 136 mmol/L 136-145 [facility] WBC (Bld) [#/Vol] 9.4 10*3/uL 4.4-11.0 [facility] Determination of erythrocyte mean corpuscular volume (MCV)Ordered By: Jared Guzman on 12-22-2023 MCV (RBC) [Entitic vol] 85.8 fL 81-99 [facility] Erythrocyte distribution wid th ratioOrdered By: Jared Guzman on 12-22-2023 Erythrocyte distribution width (RBC) [Ratio] 13.6 % 11.6-14.6 [facility] Erythrocyte distribution wid th standard deviationOrdered By: Jared Guzman on 12-22-2023 Erythrocyte distribution width (RBC) [Entitic vol] 42.4 fL 35.1-43.9 [facility] Hematocrit Auto (Bld) [Volum e fraction]Ordered By: Jared Guzman on 12-22-2023 Hematocrit (Bld) [Volume fraction] 32.1 % 37-47 [facility] - Chemistry and C hemistry - challengeOrdered By: Jared Guzman on 12-22-2023 CO2 [Moles/Vol] 25.0 mmol/L 21.0-32.0 [facility] Urea nitrogen/Creatinine [Mass ratio] 37.0 mg/mg 10-20 [facility] Laboratory - Hematology and Cell countsOrdered By: Jared Guzman on 12-22-2023 MCH (RBC) [Entitic mass] 27.3 pg 27.0-32.0 [facility] MCHC (RBC) [Mass/Vol] 31.8 g/dL 32-[address] [facility] Platelet mean volume (Bld) [Entitic vol] 9.9 fL 6.2-12.0 [facility] Platelets (Bld) [#/Vol] 393 10*3/uL 150-450 [facility] No Panel InformationOrdered By: Jared Guzman on 12-22-2023 Estimated GFR (MDRD) Amer 78 mL/min >60 [facility] Comment on above: GFR Calc Estimated GFR (MDRD) Non-Af Amer 65 mL/min >60 [facility] Comment on above: Non- GFR Calc RBC Auto (Bld) [#/Vol]Ordere d By: Jared Guzman on 12-22-2023 RBC (Bld) [#/Vol] 3.74 10*6/uL 4.2-5.4 [facility] Serum or plasma calcium mauricio urement (mass/volume)Ordered By: Jared Guzman on 12-22-2023 Calcium [Mass/Vol] 9.1 mg/dL 8.5-10.1 [facility] Serum or plasma creatinine m easurement (mass/volume)Ordered By: Jared Guzman on 12-22-2023 Creatinine [Mass/Vol] 0.95 mg/dL 0.55-1.[address] [facility] Comment on above: The validity of the calculated GFR & GFRAA in patients over 70 years has not been determined. Clinical correlation is essential. Serum or plasma urea nitroge n measurement (mass/volume)Ordered By: Jared Guzman on 12-22-2023 Urea nitrogen [Mass/Vol] 35 mg/dL 7-18 [facility] Thin prep Papanicolaou smear with manual screeningOrdered By: Jared Guzman on 12-22-2023 Thin prep Papanicolaou smear with manual screening 6 5-15 [facility] CBC W Auto Differential pane l (Bld)Ordered By: Erickson Olmedo on 12-09-2023 Basophils (Bld) [#/Vol] 0.1 10*3/uL 0.0 - 0.2 10*3/uL [facility] Basophils/100 WBC (Bld) 0.6 % 0.0 - 2.0 % [facility] Eosinophils (Bld) [#/Vol] 0.0 10*3/uL 0.0 - 0.5 10*3/uL [facility] Eosinophils/100 WBC (Bld) 0.1 % Low 1.0 - 6.0 % [facility] Erythrocyte distribution width (RBC) [Ratio] 14.5 % 11.5 - 14.5 % [facility] Hematocrit (Bld) [Volume fraction] 36.0 % Male: 40.0-52.0 %; Female: 35.0-47.0 % [facility] Hemoglobin (Bld) [Mass/Vol] 12.1 g/dL 11.7 - 18.0 g/dL [facility] Interpretation and review of laboratory results Abnormal [facility] Lymphocytes (Bld) [#/Vol] 1.0 10*3/uL 1.0 - 4.3 10*3/uL [facility] Lymphocytes/100 WBC (Bld) 9.5 % Low 20.0 - 40.0 % [facility] MCH (RBC) [Entitic mass] 28.1 pg 26.0 - 34.0 pg [facility] MCHC (RBC) [Mass/Vol] 33.5 % 32.0 - 36.0 % [facility] MCV (RBC) [Entitic vol] 83.9 fL 80.0 - 98.0 fL [facility] Monocytes (Bld) [#/Vol] 0.5 10*3/uL 0.0 - 0.8 10*3/uL [facility] Monocytes/100 WBC (Bld) 4.8 % 2.0 - 10.0 % [facility] Neutrophils (Bld) [#/Vol] 9.1 10*3/uL High 1.8 - 7.0 10*3/uL [facility] Neutrophils/100 WBC (Bld) 85.0 % High 40.0 - 80.0 % [facility] Nucleated RBC/100 WBC (Bld) [Ratio] 0.0 % [facility] Platelet mean volume (Bld) [Entitic vol] 8.0 fL 7.4 - 12.4 fL [facility] Platelets (Bld) [#/Vol] 485 10*3/uL High 140 - 440 10*3/uL [facility] RBC (Bld) [#/Vol] 4.29 10*6/uL Male: 4.40-5.90; Female: 3.80-5.20 [facility] WBC (Bld) [#/Vol] 10.7 10*3/uL 3.6 - 10.7 10*3/uL [facility] Comprehensive metabolic 1998 panelon 12-09-2023 Albumin [Mass/Vol] 4.0 g/dL 3.5 - 5.0 g/dL [facility] ALP [Catalytic activity/Vol] 139 U/L High 38 - 126 U/L [facility] ALT [Catalytic activity/Vol] 29 U/L Male: 0-49 U/L; Female: 0-34 U/L [facility] Anion gap [Moles/Vol] 11 mmol/L 3 - 13 mmol/L [facility] AST [Catalytic activity/Vol] 25 U/L 15 - 46 U/L [facility] Bilirubin [Mass/Vol] 0.7 mg/dL 0.2 - 1 .3 mg/dL [facility] Calcium [Mass/Vol] 9.0 mg/dL 8.4 - 10. 4 mg/dL [facility] Chloride [Moles/Vol] 96 mmol/L Low 98 - 10 7 mmol/L [facility] CO2 [Moles/Vol] 24 mmol/L 22 - 30 mmol/L [facility] Creatinine [Mass/Vol] 0.76 mg/dL Male: 0.66-1.25 mg/dL; Female: 0.52-1.04 mg/dL [facility] GFR/1.73 sq M.predicted MDRD (S/P/Bld) [Vol rate/Area] - PINF [facility] Comment on above: Calculation based on the Chronic Kidney Disease Epidemiology Collaboration (CKD-EPI) equation refit without adjustment for race Glucose [Mass/Vol] 295 mg/dL High 70 - 100 mg/dL [facility] Interpretation and review of laboratory results Abnormal [facility] Potassium [Moles/Vol] 5.0 mmol/L 3.5 - 5.1 mmol/L [facility] Protein [Mass/Vol] 7.2 g/dL 6.3 - 8.2 g/dL [facility] Sodium [Moles/Vol] 132 mmol/L Low 135 - 145 mmol/L [facility] Urea nitrogen [Mass/Vol] 26 mg/dL Male: 9-20 mg/dL; Female: 7-17 mg/dL [facility] Laboratory - Chemistry and C hemistry - challengeon 12-09-2023 Troponin I.cardiac [Mass/Vol] ng/mL NINF - 0.034 ng/mL [facility] Troponin I.cardiac [Mass/Vol] ng/mL NINF - 0.034 ng/mL [facility] Beta hydroxybutyrate [Mass/Vol] 5.77 mg/dL High 0.20 - 2.81 mg/dL [facility] Lactate [Moles/Vol] 1.4 mmol/L 0.7 - 2. 0 mmol/L [facility] Lipase [Catalytic activity/Vol] 41 U/L 23 - 300 U/L [facility] Magnesium [Mass/Vol] 1.6 mg/dL 1.6 - 2 .3 mg/dL [facility] Base excess Calc (BldV) [Moles/Vol] -0.6000 mmol/L -3 - 3 mmol/L [facility] CO2 (BldV) [Partial pressure] 42.1 mm[Hg] [facility] HCO3 (Bld) [Moles/Vol] 24.7 mmol/L 23.0 - 27.0 mmol/L [facility] Oxygen (BldV) [Partial pressure] 34.1 mm[Hg] mm Hg [facility] pH (BldV) 7.377 [pH] 7.330 - 7.430 pH [facility] Laboratory - Microbiology an d Antimicrobial susceptibilityon 12-09-2023 FLUAV RNA YASIR+probe Ql (Resp) Not detected Not Detected [facility] FLUBV RNA YASIR+probe Ql (Resp) Not detected Not Detected [facility] RSV RNA YASIR+probe Ql (Resp) Not detected Not Detected [facility] SARS-CoV-2 (COVID-19) RNA YASIR+probe Ql (Resp) Not detected Not Detected [facility] SARS-CoV-2 (COVID-19) RNA YASIR+probe Ql (Unsp spec) Methodology: real-time, RT-PCR The SARS-CoV-2, Flu A/B, and RSV Combo assay is intended for in vitro diagnostic use under the FDA Emergency Use Authorization (EUA). This test has not been FDA cleared or approved. In compliance with this authorization, please visit www.fda.gov/media/021041 /download or www.fda.gov/media/937056 /download to access the applicable information sheets. [facility] No Panel Informationon 12-09 Interpretation and review of laboratory results Abnormal [facility] P [place] 35 degrees [facility] NM Interval 158 ms [facility] QRS [place] -33 degrees [facility] QRSD Interval 114 ms [facility] QT Interval 388 ms [facility] QTC Interval 468 ms [facility] T Wave [place] 27 degrees [facility] Caridad Evans MD - 12/09/2023 IMPRESSION: Sinus rhythm Abnormal R-wave progression, late transition Left ventricular hypertrophy No significant change compared to 08/17/2023 Electronically Signed On 12-09-2023 06:18:33 EST by Caridad Barnard [facility] Interpretation and review of laboratory results Normal [facility] Interpretation and review of laboratory results Normal [facility] FIO2 [facility] Performed by: [facility], [address] [place] [address] CLIA ID: [id number] [facility] Radiology Study observation (narrative) [facility] SARS-CoV-2, Flu A/B, and RSV Comboon 12-09-2023 Interpretation and review of laboratory results Normal [facility] Troponin I.cardiac [Mass/Vol ]on 12-09-2023 Interpretation and review of laboratory results Normal [facility] Specimen slightly hemolyzed, interpret results with caution Patients with high levels of Biotin oral intake (ie >5 mg/day) may have falsely decreased Troponin levels. [facility] Interpretation and review of laboratory results Normal [facility] Patients with high levels of Biotin oral intake (ie >5 mg/day) may have falsely decreased Troponin levels. [facility] Urinalysis complete panel (U )Ordered By: Jackson Her on 12-09-2023 Bacteria LM.HPF (Urine sed) [#/Area] Few Abnormal Negative /HPF [facility] Bilirubin Ql (U) Negative Negative mg/dL [facility] Clarity (U) Clear Clear [facility] Color (U) Light Yellow Lt. Yellow [facility] Epithelial cells.squamous LM.HPF (Urine sed) [#/Area] 0-2 [facility] Glucose Ql (U) 500 mg/dL Abnormal Normal (<70) [facility] Hemoglobin Ql (U) 0.06 mg/dL Abnormal Negative [facility] Hyaline casts Auto (Urine sed) [#/Area] 0-2 Abnormal Negative /LPF [facility] Interpretation and review of laboratory results Abnormal [facility] Ketones (U) [Mass/Vol] 10 mg/dL Abnormal Negative [facility] Leukocyte esterase Test strip Ql (U) 25 Abnormal Negative Kat/uL [facility] Mucus LM.HPF (Urine sed) [#/Area] Few Negative /LPF [facility] Nitrite Ql (U) Negative Negative [facility] Non-Squamous Epithalial Cells, Urine 0-2 Abnormal Negative /HPF [facility] pH (U) 6.0 [pH] 5.0 - 8.0 pH [facility] Protein (U) [Mass/Vol] 300 mg/dL Abnormal Negative 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 The heart and mediastinum are normal. Atelectasis at the left lung base. No consolidation. Costophrenic angles are sharp. Marked degenerative change of the thoracic spine, likely diffuse idiopathic skeletal hyperostosis. [facility] Sergio Muniz MD - 12/09/2023 Patient Name: WILL JACINTO : 1965 Exam Date/Time: 12/09/2023 06:09 Procedure: XR CHEST 1 VIEW Ordering Provider: EVANS PRISCA Reason For Exam: cough PORTABLE CHEST CLINICAL INDICATION: Cough TECHNIQUE: Portable AP COMPARISON: 10/12/2023 FINDINGS: Exam quality: EKG leads obscure small portions of the chest. The heart and mediastinum are normal. Atelectasis at the left lung base. No consolidation. Costophrenic angles are sharp. Marked degenerative change of the thoracic spine, likely diffuse idiopathic skeletal hyperostosis. IMPRESSION: Left basilar atelectasis Report Dictated on Electronically Signed By: Sergio Muniz MD Electronically Signed Date/Time: 12/09/2023 6:11 AM EST [facility] Radiology Study observation (narrative) [facility] [facility] XR Chest Single viewOrdered By: Sergio Muniz on 12-09-2023 [employer] Work Phone: Basophil percentageOrdered B y: Jared Guzman on 11-23-2023 Chloride [Moles/Vol] 106 mmol/L 98-[address] [facility] Glucose [Mass/Vol] 212 mg/dL 74-106 [place] [facility] beds at [facility] Comment on above: Glucose result great er than or equal to 200 mg/dLsuggests DIABETES MELLITUS per A.D.A. criteria. Hemoglobin (Bld) [Mass/Vol] 10.5 g/dL 12.0-15.0 [facility] Potassium [Moles/Vol] 5.0 mmol/L 3.5-5.[address] [facility] Sodium [Moles/Vol] 136 mmol/L 136-145 [facility] WBC (Bld) [#/Vol] 7.5 10*3/uL 4.4-11.0 [facility] Determination of erythrocyte mean corpuscular volume (MCV)Ordered By: Jared Guzman on 11-23-2023 MCV (RBC) [Entitic vol] 87.7 fL 81-99 [facility] Erythrocyte distribution wid th ratioOrdered By: Jared Guzman on 11-23-2023 Erythrocyte distribution width (RBC) [Ratio] 13.7 % 11.6-14.6 [facility] Erythrocyte distribution wid th standard deviationOrdered By: Jared Guzman on 11-23-2023 Erythrocyte distribution width (RBC) [Entitic vol] 43.8 fL 35.1-43.9 [facility] Hematocrit Auto (Bld) [Volum e fraction]Ordered By: Jared Guzman on 11-23-2023 Hematocrit (Bld) [Volume fraction] 33.4 % 37-47 [facility] Iron measurement (mass/mass) Ordered By: Jared Guzman on 11-23-2023 Iron (Unsp spec) [Mass/Mass] 53 ug/dL 50-170 [facility] - Chemistry and C hemistry - challengeOrdered By: Jared Guzman on 11-23-2023 CO2 [Moles/Vol] 24.0 mmol/L 21.0-32.0 [facility] Cobalamin (Vitamin B12) [Mass/Vol] 298 pg/mL 211-911 [facility] Ferritin [Mass/Vol] 68 ng/mL 8-252 [facility] Urea nitrogen/Creatinine [Mass ratio] 26.1 mg/mg 10-20 [facility] - Hematology and Cell countsOrdered By: Jared Guzman on 11-23-2023 MCH (RBC) [Entitic mass] 27.6 pg 27.0-32.0 [facility] MCHC (RBC) [Mass/Vol] 31.4 g/dL 32-[address] [facility] Platelets (Bld) [#/Vol] 347 10*3/uL 150-450 [facility] No Panel InformationOrdered By: Jared Guzman on 11-23-2023 Estimated GFR (MDRD) Amer 94 mL/min >60 [facility] Comment on above: GFR Calc Estimated GFR (MDRD) Non-Af Amer 78 mL/min >60 [facility] Comment on above: Non- GFR Calc Total Iron Binding Capacity 274 ug/dL 250-450 [facility] Platelet mean volume Miquel-Ec ker (Bld) [Entitic vol]Ordered By: Jared Guzman on 11-23-2023 Platelet mean volume (Bld) [Entitic vol] 10.4 fL 6.2-12.0 [facility] RBC Auto (Bld) [#/Vol]Ordere d By: Jared Guzman on 11-23-2023 RBC (Bld) [#/Vol] 3.81 10*6/uL 4.2-5.4 [facility] Serum mitochondria antibody detectionOrdered By: Jared Guzman on 11-23-2023 Mitochondria Ab Ql (S) <20.0 Units 0.0-20.0 [facility] Comment on above: Negative 0.0 - 20.0 Equivocal 20.1 - 24.9 Positive >24.9Mitochondrial (M2) Antibodies are found in 90-96% ofpatients with primary biliary cirrhosis.Performed at: [facility] [address] [id number] Director: Kb Lopez PhD, Phone: [phone] Serum or plasma IgG measurem ent (mass/volume)Ordered By: Jared Guzman on 11-23-2023 IgG [Mass/Vol] 622 mg/dL [phone] [facility] Comment on above: Performed at: [facility] [address] [id number] Director: Kb Lopez PhD, Phone: [phone] Serum or plasma bone alkalin e phosphatase/total alkaline phosphatase ratio (catalyticOrdered By: Jared Guzman on 11-23-2023 ALP Bone [Catalytic fraction] 31 % 14-68 [facility] Serum or plasma calcium mauricio urement (mass/volume)Ordered By: Jared Guzman on 11-23-2023 Calcium [Mass/Vol] 9.0 mg/dL 8.5-10.1 [facility] Serum or plasma creatinine m easurement (mass/volume)Ordered By: Jared Guzman on 11-23-2023 Creatinine [Mass/Vol] 0.80 mg/dL 0.55-1.[address] [facility] Comment on above: The validity of the calculated GFR & GFRAA in patients over 70 years has not been determined. Clinical correlation is essential. Serum or plasma intestinal a lkaline phosphatase/total alkaline phosphatase ratio (catOrdered By: Jared Guzman on 11-23-2023 ALP Intest [Catalytic fraction] 12 % 0-18 [facility] Serum or plasma liver alkali ne phosphatase/total alkaline phosphatase ratio (catalytiOrdered By: Jared Guzman on 11-23-2023 ALP Liver [Catalytic fraction] 57 % 18-85 [facility] Serum or plasma urea nitroge n measurement (mass/volume)Ordered By: Jared Guzman on 11-23-2023 Urea nitrogen [Mass/Vol] 21 mg/dL 7-18 [facility] Thin prep Papanicolaou smear with manual screeningOrdered By: Jared Guzman on 11-23-2023 Thin prep Papanicolaou smear with manual screening 6 5-15 [facility] Thin prep Papanicolaou smear with manual screening 127 IU/L 44-121 [facility] WILL JACINTO ([id number]) 1965 F Date Time Provider Department 11/22/23 ELDA REAVES During your visit today, we recorded the following information about you: Belia Parmar 11/22/2023 11:20 AM Addendum I scanned lab results you ordered on patient today (chemistry, hematology AND miscellaneous.) Please review. Thanks. Elda Singer PA-C 11/22/2023 3:09 PM Signed Please inform pt anemia is persistent but stable. Negative for Celiac. Alk phos is elevated but this is a nonspecific finding, could be due to fatty liver. Blood sugars elevated, recommend continued follow up with Endocrinology. I have ordered additional labs to eval persistent anemia/alk phos elevations. JONATHAN Syed Kristen, PA-C 11/22/2023 3:09 PM Signed Addended by: ELDA REAVES on: 11/22/2023 03:09 PM Modules accepted: Kwasi Dewitt MA 11/22/2023 3:29 PM Signed Nurse Nabil advised lab orders faxed to [phone]. Allergies As of Date: 11/22/2023 (No Known Allergies) Date Reviewed: 11/17/2023 Reviewed by: Elda Reaves PA-C - Fully Assessed Reason for Visit: Results [95] Primary Visit Diagnosis:Anemia, unspecified type [D64.9] Other Visit Diagnosis:Elevated alkaline phosphatase level [R74.8] Order(s):ALK PHOS ISOENZYM BL [SQALKISO] Order #: [id number] FUTURE MITOCHONDRIAL M2 IGG SERUM [SQMITOS] Order #: [id number] FUTURE IRON + TIBC [SQIRON] Order #: [id number] FUTURE FERRITIN BLD [SQFERR] Order #: [id number] FUTURE VITAMIN B12 BLOOD [SQB12] Order #: [id number] FUTURE Prescriptions as of 11/22/2023 - atorvastatin (LIPITOR) 10 mg tablet Take 10 mg by mouth once daily. - CINNAMON - clotrimazole (LOTRIMIN) 1 % cream Apply to affected area two times a day. - dilTIAZem CR (TIAZAC, TAZTIA XT) 180 mg 24 hr capsule Take 180 mg by mouth once daily. - gabapentin (NEURONTIN) 100 mg capsule Take 100 mg by mouth three times a day. - polyethylene glycol 3350 (GLYCOLAX ORAL) Take by mouth. - metoprolol tartrate, short acting, (LOPRESSOR) 25 mg tablet Take 25 mg by mouth two times a day. - megestrol (MEGACE) 20 mg tablet Take 20 mg by mouth once daily. - Melatonin 5 mg cap Take by mouth. - pantoprazole DR (PROTONIX) 40 mg tablet Take 40 mg by mouth once daily. - calcium carbonate (TUMS 500 ORAL) Take by mouth. - SACCHAROMYCES BOULARDII ORAL Take by mouth. - famotidine (PEPCID) 20 mg tablet Take 1 tablet by mouth once daily as needed. - promethazine (PHENERGAN) 25 mg tablet Take 1 tablet by mouth every 8 hours as needed for nausea/vomiting (for nausea). - ARIPiprazole (ABILIFY) 10 mg tablet Take 10 mg by mouth once daily. - acetaminophen 325 mg cap Take 2 capsules by mouth every 6 hours. - aspirin, enteric coated (ASPIRIN, ENTERIC COATED) 81 mg EC tablet Take 81 mg by mouth once daily. - Bisacodyl (DULCOLAX) 5 mg tab Take 1 tablet by mouth as needed. - FLUoxetine (PROZAC) 40 mg capsule Take 40 mg by mouth once daily. - insulin regular hum U-500 conc (HUMULIN R U-500, CONC, KWIKPEN) 500 unit/mL (3 mL) inpn Inject 32 Units subcutaneously daily with breakfast. - insulin regular hum U-500 conc (HUMULIN R U-500, CONC, KWIKPEN) 500 unit/mL (3 mL) inpn Inject 38 Units subcutaneously daily with breakfast. - lisinopril (ZESTRIL) 20 mg tablet Take 20 mg by mouth once daily. - magnesium hydroxide (MILK OF MAGNESIA ORAL) Take 30 mL by mouth every 24 hours. Problem List As Of Date: 11/22/2023 (None) Encounter Status:Closed by BELIA PARMAR on 11/22/23 Normal [facility] Absolute lymphocyte countOrd ered By: Jared Guzman on 11-18-2023 Lymphocytes Auto (Unsp spec) [#/Vol] 2.16 10*3/uL 0.83-4.51 [facility] Basophil percentageOrdered B y: Jared Guzman on 11-18-2023 Basophils/100 WBC (Bld) 0.8 % 0-1 [facility] Bilirubin [Mass/Vol] 0.40 mg/dL 0.20-1.00 [facility] Comment on above: For patients on eltr ombopag therapy, use of Dimension [place] TBIL is not recommended. Chloride [Moles/Vol] 104 mmol/L 98-107 [facility] Eosinophils/100 WBC (Bld) 2.3 % 0-5 [facility] Glucose [Mass/Vol] 211 mg/dL 74-106 [facility] Comment on above: Glucose result great er than or equal to 200 mg/dLsuggests DIABETES MELLITUS per A.D.A. criteria. Neutrophils (Bld) [#/Vol] 5.2 10*3/uL 2.0-7.7 [facility] Neutrophils/100 WBC (Bld) 62.4 % 47-70 [facility] Potassium [Moles/Vol] 4.9 mmol/L 3.5-5.[address] [facility] Protein [Mass/Vol] 6.3 g/dL 6.4-8.2 [facility] Sodium [Moles/Vol] 136 mmol/L 136-145 [facility] WBC (Bld) [#/Vol] 8.4 10*3/uL 4.4-11.0 [facility] Blood erythrocytes count (nu mber/volume)Ordered By: Jared Guzman on 11-18-2023 RBC (Bld) [#/Vol] 3.93 10*6/uL 4.2-5.4 [facility] Blood hemoglobin measurement (mass/volume)Ordered By: Jared Guzman on 11-18-2023 Hemoglobin (Bld) [Mass/Vol] 10.7 g/dL 12.0-15.0 [facility] Blood lymphocytes/100 leukoc ytesOrdered By: Jared Guzman on 11-18-2023 Lymphocytes/100 WBC (Bld) 25.7 % 19-41 [facility] Blood monocytes/100 leukocyt esOrdered By: Jared Guzman on 11-18-2023 Monocytes/100 WBC (Bld) 7.5 % 0-10 [facility] Blood platelet mean volumeOr dered By: Jared Guzman on 11-18-2023 Platelet mean volume (Bld) [Entitic vol] 10.1 fL 6.2-12.0 [facility] Determination of erythrocyte mean corpuscular volume (MCV)Ordered By: Jared Guzman on 11-18-2023 MCV (RBC) [Entitic vol] 88.5 fL 81-99 [facility] Hematocrit Auto (Bld) [Volum e fraction]Ordered By: Jared Guzman on 11-18-2023 Hematocrit (Bld) [Volume fraction] 34.8 % 37-47 [facility] - Chemistry and C hemistry - challengeOrdered By: Jared Guzman on 11-18-2023 ALP [Catalytic activity/Vol] 155 U/L 45-117 [facility] ALT [Catalytic activity/Vol] 30 U/L 13-56 [facility] CO2 [Moles/Vol] 24.0 mmol/L 21.0-32.0 [facility] Globulin (S) [Mass/Vol] 3.5 g/dL 2.2-4.2 [facility] Lipase [Catalytic activity/Vol] 22 U/L 13-75 [facility] Comment on above: Please note:LIPASE r evised reference range effective 23. New Lipase methodology. Expected to produce lower values than the previous assay method. NEW Reference Range: 13 - 75 U/L Urea nitrogen/Creatinine [Mass ratio] 29.0 mg/mg 10-20 [facility] - Hematology and Cell countsOrdered By: Jared Guzman on 11-18-2023 Erythrocyte distribution width (RBC) [Entitic vol] 44.7 fL 35.1-43.9 [facility] Erythrocyte distribution width (RBC) [Ratio] 13.8 % 11.6-14.6 [facility] Immature granulocytes/100 WBC (Bld) 1.300 % 0.0-0.9 [facility] Comment on above: IG% - Immature Granu locytes (promyelocytes, myelocytes and metamyelocytes) > 1% indicates that a LEFT SHIFT is Present. MCH (RBC) [Entitic mass] 27.2 pg 27.0-32.0 [facility] Nucleated RBC/100 WBC (Bld) [Ratio] 0 % 0-5 [facility] MCHC Auto (RBC) [Mass/Vol]Or dered By: Jared Guzman on 01-11-2024 MCHC (RBC) [Mass/Vol] 30.7 g/dL 32-[address] [facility] No Panel InformationOrdered By: Jared Guzman on 11-18-2023 Endomysial IgA Antibody Negative Negative [facility] Estimated GFR (MDRD) Amer 87 mL/min >60 [facility] Comment on above: GFR Calc Estimated GFR (MDRD) Non-Af Amer 72 mL/min >60 [facility] Comment on above: Non- GFR Calc Platelets bldOrdered By: Mike Guzman on 11-18-2023 Platelets (Bld) [#/Vol] 340 10*3/uL 150-450 [facility] Serum IgA measurement (units /volume)Ordered By: Jared Guzman on 11-18-2023 IgA Qn (S) 224 mg/dL 87-352 [facility] Comment on above: Performed at: [employer] [address] Director: Kb Lopez PhD, Phone: [phone] Serum or plasma albumin mauricio urement (mass/volume)Ordered By: Jared Guzman on 11-18-2023 Albumin [Mass/Vol] 2.8 g/dL 3.2-5.0 [facility] Serum or plasma albumin/glob ulin mass ratioOrdered By: Jared Guzman on 11-18-2023 Albumin/Globulin [Mass ratio] 0.8 {ratio} 0.9-2.4 [facility] Serum or plasma calcium mauricio urement (mass/volume)Ordered By: Jared Guzman on 11-18-2023 Calcium [Mass/Vol] 9.2 mg/dL 8.5-10.1 [facility] Serum or plasma creatinine m easurement (mass/volume)Ordered By: Jared Guzman on 11-18-2023 Creatinine [Mass/Vol] 0.86 mg/dL 0.55-1.[address] [facility] Comment on above: The validity of the calculated GFR & GFRAA in patients over 70 years has not been determined. Clinical correlation is essential. Serum or plasma urea nitroge n measurement (mass/volume)Ordered By: Jared Guzman on 11-18-2023 Urea nitrogen [Mass/Vol] 25 mg/dL 7-18 [facility] Serum tissue transglutaminas e IgA antibody assay (units/volume)Ordered By: Jared Guzman on 11-18-2023 tTG IgA Qn (S) <2 U/mL 0-3 [facility] Comment on above: Negative 0 - 3 Weak Positive 4 - 10 Positive >10 Tissue Transglutaminase (tTG) has been identified as the endomysial antigen. Studies have demonstr- ated that endomysial IgA antibodies have over 99% specificity for gluten sensitive enteropathy. Thin prep Papanicolaou smear with manual screeningOrdered By: Jared Guzman on 11-18-2023 Thin prep Papanicolaou smear with manual screening 11 U/L 15-37 [facility] Thin prep Papanicolaou smear with manual screening 8 5-15 [facility] CNOVon 11-17-2023 CNOV Office Visit (GSTNOR ) -------- WILL JACINTO ([id number]) 1965 F Date Time Provider Department 11/17/23 9:40 AM ELDA REAVES GSTNOR During your visit today, we recorded the following information about you: Pulse Blood pressure 77/minute 124/58 Elda Reaves PA-C 11/17/2023 10:00 AM Signed CHIEF COMPLAINT: Patient presents with: Nausea AND Vomiting HPI: Resident at [facility], SNF and rehab. Will Jacinto is a 58 year old adult with PMHx positive for anxiety, bipolar, HTN, HLD, DM II who presents for Nausea AND Vomiting. On Protonix 40 mg daily. Recent [facility] admission 2/2 complications from DM, hypoglycemia, altered mental state. Has had several prior ER visits prior to admission for CP, pyelo. Informed of potential for gastroparesis on last hospital admission, was tried on Reglan which he reports may have helped sx, not currently taking medication. He is having 3-4 episodes of emesis per week. Takes Pepcid PRN with some relief. Zofran helping minimally. Admits to worsened postprandial abd pains. Bms are every other day, formed consistency, no blood/black coloring. Takes Miralax PRN with relief. Denies weight loss, fevers, melena. US 10/2023 Impression Gallstones. No definite acute biliary process. Consider follow-up or further evaluation. Limited due to body habitus and bowel gas. CT abd 10/2023 Impression 1. No evidence of acute infectious or inflammatory process in the abdomen or pelvis. 2. The liver demonstrates generalized diminished attenuation as compared to the spleen, compatible with hepatic steatosis. 3. Hyperdensity within the gallbladder lumen, suggestive of sludge and/or cholelithiasis; consider right upper quadrant ultrasound. 4. Patchy opacities in the right lung base. EGD 06/2023 Impression: - Normal esophagus. - Z-line regular, 41 cm from the incisors. - Normal stomach, cardia and gastric fundus. - Normal duodenal bulb and second portion of the duodenum. - No specimens collected. Record Review: [facility] / Outside records reviewed. PAST MEDICAL HISTORY Diagnosis Date Anxiety state Bipolar disorder (HCC) Endometrial hyperplasia Essential hypertension Ileus (HCC) Lack of coordination Lymphedema Mixed hyperlipidemia Reduced mobility Type 2 diabetes mellitus (HCC) No past surgical history on file. Allergies: ALLERGIES No Known Allergies Medications: atorvastatin (LIPITOR) 10 mg tablet Take 10 mg by mouth once daily. CINNAMON clotrimazole (LOTRIMIN) 1 % cream Apply to affected area two times a day. dilTIAZem CR (TIAZAC, TAZTIA XT) 180 mg 24 hr capsule Take 180 mg by mouth once daily. gabapentin (NEURONTIN) 100 mg capsule Take 100 mg by mouth three times a day. polyethylene glycol 3350 (GLYCOLAX ORAL) Take by mouth. metoprolol tartrate, short acting, (LOPRESSOR) 25 mg tablet Take 25 mg by mouth two times a day. megestrol (MEGACE) 20 mg tablet Take 20 mg by mouth once daily. Melatonin 5 mg cap Take by mouth. ondansetron (ZOFRAN) 4 mg tablet Take 4 mg by mouth every 8 hours as needed. pantoprazole DR (PROTONIX) 40 mg tablet Take 40 mg by mouth once daily. calcium carbonate (TUMS 500 ORAL) Take by mouth. SACCHAROMYCES BOULARDII ORAL Take by mouth. ARIPiprazole (ABILIFY) 10 mg tablet Take 10 mg by mouth once daily. acetaminophen 325 mg cap Take 2 capsules by mouth every 6 hours. aspirin, enteric coated (ASPIRIN, ENTERIC COATED) 81 mg EC tablet Take 81 mg by mouth once daily. Bisacodyl (DULCOLAX) 5 mg tab Take 1 tablet by mouth as needed. FLUoxetine (PROZAC) 40 mg capsule Take 40 mg by mouth once daily. insulin regular hum U-500 conc (HUMULIN R U-500, CONC, KWIKPEN) 500 unit/mL (3 mL) inpn Inject 32 Units subcutaneously daily with breakfast. insulin regular hum U-500 conc (HUMULIN R U-500, CONC, KWIKPEN) 500 unit/mL (3 mL) inpn Inject 38 Units subcutaneously daily with breakfast. lisinopril (ZESTRIL) 20 mg tablet Take 20 mg by mouth once daily. magnesium hydroxide (MILK OF MAGNESIA ORAL) Take 30 mL by mouth every 24 hours. bisacodyl (DULCOLAX, BISACODYL,) 10 mg supp 10 mg by RECTAL route every 24 hours. FLUoxetine (PROZAC) 10 mg capsule Take 10 mg by mouth once daily. heparin sodium,porcine (HEPARIN LOCK FLUSH INTRAVEN.) Inject 5 mL intravenously every 8 hours. insulin lispro (HUMALOG LEONARDO KWIKPEN U-100) 100 unit/mL inph Inject 100 Units subcutaneously three times daily before meals. HYDROcodone-acetaminophe n (NORCO) 5-325 mg per tablet Take 1 tablet by mouth every 4 hours. furosemide (LASIX) 80 mg tablet Take 80 mg by mouth once daily. insulin detemir U-100 (LEVEMIR U-100 INSULIN) 100 unit/mL injection Inject 86 Units subcutaneously daily at bedtime. metFORMIN (GLUCOPHAGE) 1,000 mg tablet Take 1,000 mg by mouth twice daily with meals. simvastatin (ZOCOR) 20 mg tablet Take 20 mg by mouth daily at bedtime. No (more content not included)... Normal [facility] Absolute lymphocyte countOrd ered By: Jared Guzman on 10-26-2023 Lymphocytes Auto (Unsp spec) [#/Vol] 1.95 10*3/uL 0.83-4.51 [facility] Basophil percentageOrdered B y: Jared Guzman on 10-26-2023 Basophils/100 WBC (Bld) 0.5 % 0-1 [facility] Chloride [Moles/Vol] 107 mmol/L 98-107 [facility] Eosinophils/100 WBC (Bld) 3.4 % 0-5 [facility] Glucose [Mass/Vol] 279 mg/dL 74-106 [facility] Comment on above: Glucose result great er than or equal to 200 mg/dLsuggests DIABETES MELLITUS per A.D.A. criteria. Neutrophils (Bld) [#/Vol] 3.6 10*3/uL 2.0-7.7 [facility] Neutrophils/100 WBC (Bld) 57.8 % 47-70 [facility] Potassium [Moles/Vol] 4.9 mmol/L 3.5-5.[address] [facility] Sodium [Moles/Vol] 138 mmol/L 136-145 [facility] WBC (Bld) [#/Vol] 6.2 10*3/uL 4.4-11.0 [facility] Blood erythrocytes count (nu mber/volume)Ordered By: Jared Guzman on 10-26-2023 RBC (Bld) [#/Vol] 3.47 10*6/uL 4.2-5.4 [facility] Blood hemoglobin measurement (mass/volume)Ordered By: Jared Guzman on 10-26-2023 Hemoglobin (Bld) [Mass/Vol] 9.6 g/dL 12.0-15.0 [facility] Blood lymphocytes/100 leukoc ytesOrdered By: Jared Guzman on 10-26-2023 Lymphocytes/100 WBC (Bld) 31.3 % 19-41 [facility] Blood monocytes/100 leukocyt esOrdered By: Jared Guzman on 10-26-2023 Monocytes/100 WBC (Bld) 6.4 % 0-10 [facility] Blood platelet mean volumeOr dered By: Jared Guzman on 10-26-2023 Platelet mean volume (Bld) [Entitic vol] 10.3 fL 6.2-12.0 [facility] Determination of erythrocyte mean corpuscular volume (MCV)Ordered By: Jared Guzman on 10-26-2023 MCV (RBC) [Entitic vol] 89.6 fL 81-99 [facility] Hematocrit Auto (Bld) [Volum e fraction]Ordered By: Jared Guzman on 10-26-2023 Hematocrit (Bld) [Volume fraction] 31.1 % 37-47 [facility] - Chemistry and C hemistry - challengeOrdered By: Jared Guzman on 10-26-2023 CO2 [Moles/Vol] 25.0 mmol/L 21.0-32.0 [facility] Urea nitrogen/Creatinine [Mass ratio] 26.6 mg/mg 10-20 [facility] - Hematology and Cell countsOrdered By: Jared Guzman on 10-26-2023 Erythrocyte distribution width (RBC) [Entitic vol] 47.2 fL 35.1-43.9 [facility] Erythrocyte distribution width (RBC) [Ratio] 14.6 % 11.6-14.6 [facility] Immature granulocytes/100 WBC (Bld) 0.600 % 0.0-0.9 [facility] Comment on above: IG% - Immature Granu locytes (promyelocytes, myelocytes and metamyelocytes) > 1% indicates that a LEFT SHIFT is Present. MCH (RBC) [Entitic mass] 27.7 pg 27.0-32.0 [facility] Nucleated RBC/100 WBC (Bld) [Ratio] 0 % 0-5 [facility] MCHC Auto (RBC) [Mass/Vol]Or dered By: Jared Guzman on 10-26-2023 MCHC (RBC) [Mass/Vol] 30.9 g/dL 32-[address] [facility] No Panel InformationOrdered By: Jared Guzman on 10-26-2023 Estimated GFR (MDRD) Amer 87 mL/min >60 [facility] Comment on above: GFR Calc Estimated GFR (MDRD) Non-Af Amer 72 mL/min >60 [facility] Comment on above: Non- GFR Calc Platelets bldOrdered By: Mike Guzman on 10-26-2023 Platelets (Bld) [#/Vol] 355 10*3/uL 150-450 [facility] Serum or plasma calcium mauricio urement (mass/volume)Ordered By: Jared Guzman on 10-26-2023 Calcium [Mass/Vol] 9.0 mg/dL 8.5-10.1 [facility] Serum or plasma creatinine m easurement (mass/volume)Ordered By: Jared Guzman on 10-26-2023 Creatinine [Mass/Vol] 0.87 mg/dL 0.55-1.[address] [facility] Comment on above: The validity of the calculated GFR & GFRAA in patients over 70 years has not been determined. Clinical correlation is essential. Serum or plasma urea nitroge n measurement (mass/volume)Ordered By: Jared Guzman on 10-26-2023 Urea nitrogen [Mass/Vol] 23 mg/dL 7-18 [facility] Thin prep Papanicolaou smear with manual screeningOrdered By: Jared Guzman on 10-26-2023 Thin prep Papanicolaou smear with manual screening 6 -15 [facility] - Chemistry and C hemistry - challengeon 10-16-2023 Glucose [Mass/Vol] 289 mg/dL High 70 - 100 mg/dL [facility] Glucose [Mass/Vol] 346 mg/dL High 70 - 100 mg/dL [facility] Glucose [Mass/Vol] 304 mg/dL High 70 - 100 mg/dL [facility] Glucose [Mass/Vol] 312 mg/dL High 70 - 100 mg/dL [facility] No Panel Informationon 10-16 Interpretation and review of laboratory results Abnormal [facility] Interpretation and review of laboratory results Abnormal [facility] Interpretation and review of laboratory results Abnormal [facility] Interpretation and review of laboratory results Abnormal [facility] Glucose (Bld) [Mass/Vol]Orde red By: Eva Dalal on 10-15-2023 Glucose [Mass/Vol] 473 mg/dL Critically high 70 - 1 00 mg/dL [facility] Interpretation and review of laboratory results Abnormal [facility] Glucose (Bld) [Mass/Vol]Orde red By: Diane Islas on 10-15-2023 Glucose [Mass/Vol] 528 mg/dL Critically high 70 - 1 00 mg/dL [facility] Interpretation and review of laboratory results Abnormal [facility] - Chemistry and C hemistry - challengeon 10-15-2023 Glucose [Mass/Vol] 262 mg/dL High 70 - 100 mg/dL [facility] Glucose [Mass/Vol] 289 mg/dL High 70 - 100 mg/dL [facility] Glucose [Mass/Vol] mg/dL High 70 - 100 mg/dL [facility] Glucose [Mass/Vol] mg/dL High 70 - 100 mg/dL [facility] No Panel Informationon 10-15 Interpretation and review of laboratory results Abnormal [facility] Interpretation and review of laboratory results Abnormal [facility] Interpretation and review of laboratory results Abnormal [facility] Interpretation and review of laboratory results Abnormal [facility] Bacteria identified Cx Nom ( Bld)on 10-14-2023 Interpretation and review of laboratory results Normal [facility] Basic metabolic 1998 panelon 10-14-2023 Anion gap [Moles/Vol] 7 mmol/L 3 - 13 mmol/L [facility] Calcium [Mass/Vol] 8.8 mg/dL 8.4 - 10. 4 mg/dL [facility] Chloride [Moles/Vol] 102 mmol/L 98 - 10 7 mmol/L [facility] CO2 [Moles/Vol] 25 mmol/L 22 - 30 mmol/L [facility] Creatinine [Mass/Vol] 0.98 mg/dL Male: 0.66-1.25 mg/dL; Female: 0.52-1.04 mg/dL [facility] GFR/1.73 sq M.predicted MDRD (S/P/Bld) [Vol rate/Area] 67.9 mL/min/{1.73_m2} - PINF [facility] Glucose [Mass/Vol] 250 mg/dL High 70 - 100 mg/dL [facility] Interpretation and review of laboratory results Abnormal [facility] Potassium [Moles/Vol] 3.9 mmol/L 3.5 - 5.1 mmol/L [facility] Sodium [Moles/Vol] 134 mmol/L Low 135 - 145 mmol/L [facility] Urea nitrogen [Mass/Vol] 35 mg/dL Male: 9-20 mg/dL; Female: 7-17 mg/dL [facility] Laboratory - Chemistry and C hemistry - challengeon 10-14-2023 Glucose [Mass/Vol] 305 mg/dL High 70 - 100 mg/dL [facility] Glucose [Mass/Vol] 338 mg/dL High 70 - 100 mg/dL [facility] Glucose [Mass/Vol] 360 mg/dL High 70 - 100 mg/dL [facility] Glucose [Mass/Vol] 268 mg/dL High 70 - 100 mg/dL [facility] Glucose [Mass/Vol] 235 mg/dL High 70 - 100 mg/dL [facility] Laboratory - Microbiology an d Antimicrobial susceptibilityon 10-14-2023 Bacteria identified Cx Nom (Bld) No growth at 5 days [facility] No Panel Informationon 10-14 Interpretation and review of laboratory results Abnormal [facility] Interpretation and review of laboratory results Abnormal [facility] Interpretation and review of laboratory results Abnormal [facility] Interpretation and review of laboratory results Abnormal [facility] Interpretation and review of laboratory results Abnormal [facility] Basic metabolic 1998 panelon 10-13-2023 Anion gap [Moles/Vol] 10 mmol/L 3 - 13 mmol/L [facility] Calcium [Mass/Vol] 8.5 mg/dL 8.4 - 10. 4 mg/dL [facility] Chloride [Moles/Vol] 95 mmol/L Low 98 - 10 7 mmol/L [facility] CO2 [Moles/Vol] 24 mmol/L 22 - 30 mmol/L [facility] Creatinine [Mass/Vol] 1.28 mg/dL Male: 0.66-1.25 mg/dL; Female: 0.52-1.04 mg/dL [facility] GFR/1.73 sq M.predicted MDRD (S/P/Bld) [Vol rate/Area] 49.3 mL/min/{1.73_m2} Low - PINF [facility] Glucose [Mass/Vol] 383 mg/dL High 70 - 100 mg/dL [facility] Interpretation and review of laboratory results Abnormal [facility] Potassium [Moles/Vol] 3.8 mmol/L 3.5 - 5.1 mmol/L [facility] Sodium [Moles/Vol] 129 mmol/L Low 135 - 145 mmol/L [facility] Urea nitrogen [Mass/Vol] 44 mg/dL Male: 9-20 mg/dL; Female: 7-17 mg/dL [facility] CBC panel Auto (Bld)on 10-13 Erythrocyte distribution width (RBC) [Ratio] 14.7 % High 11.5 - 14.5 % [facility] Hematocrit (Bld) [Volume fraction] 31.7 % Male: 40.0-52.0 %; Female: 35.0-47.0 % [facility] Hemoglobin (Bld) [Mass/Vol] 10.5 g/dL Low 11.7 - 18.0 g/dL [facility] Interpretation and review of laboratory results Abnormal [facility] MCH (RBC) [Entitic mass] 28.1 pg 26.0 - 34.0 pg [facility] MCHC (RBC) [Mass/Vol] 33.1 % 32.0 - 36.0 % [facility] MCV (RBC) [Entitic vol] 84.9 fL 80.0 - 98.0 fL [facility] Platelet mean volume (Bld) [Entitic vol] 7.4 fL 7.4 - 12.4 fL [facility] Platelets (Bld) [#/Vol] 324 10*3/uL 140 - 440 10*3/uL [facility] RBC (Bld) [#/Vol] 3.73 10*6/uL Male: 4.40-5.90; Female: 3.80-5.20 [facility] WBC (Bld) [#/Vol] 9.1 10*3/uL 3.6 - 10.7 10*3/uL [facility] - Chemistry and C hemistry - challengeon 10-13-2023 Glucose [Mass/Vol] 232 mg/dL High 70 - 100 mg/dL [facility] Glucose [Mass/Vol] 243 mg/dL High 70 - 100 mg/dL [facility] Glucose [Mass/Vol] 241 mg/dL High 70 - 100 mg/dL [facility] Glucose [Mass/Vol] 311 mg/dL High 70 - 100 mg/dL [facility] Glucose [Mass/Vol] 446 mg/dL High 70 - 100 mg/dL [facility] Glucose [Mass/Vol] 435 mg/dL High 70 - 100 mg/dL [facility] Magnesium [Mass/Vol] 1.7 mg/dL 1.6 - 2 .3 mg/dL [facility] Magnesium [Mass/Vol]on 10-13 Interpretation and review of laboratory results Normal [facility] No Panel Informationon 10-13 Interpretation and review of laboratory results Abnormal [facility] Interpretation and review of laboratory results Abnormal [facility] Interpretation and review of laboratory results Abnormal [facility] Interpretation and review of laboratory results Abnormal [facility] Interpretation and review of laboratory results Abnormal [facility] Interpretation and review of laboratory results Abnormal [facility] Bacteria identified Cx Nom ( Bld)on 10-12-2023 Interpretation and review of laboratory results Normal [facility] Basic metabolic 1998 panelon 10-12-2023 Anion gap [Moles/Vol] 10 mmol/L 3 - 13 mmol/L [facility] Calcium [Mass/Vol] 9.4 mg/dL 8.4 - 10. 4 mg/dL [facility] Chloride [Moles/Vol] 97 mmol/L Low 98 - 10 7 mmol/L [facility] CO2 [Moles/Vol] 24 mmol/L 22 - 30 mmol/L [facility] Creatinine [Mass/Vol] 0.98 mg/dL Male: 0.66-1.25 mg/dL; Female: 0.52-1.04 mg/dL [facility] GFR/1.73 sq M.predicted MDRD (S/P/Bld) [Vol rate/Area] 67.9 mL/min/{1.73_m2} - PINF [facility] Glucose [Mass/Vol] 401 mg/dL High 70 - 100 mg/dL [facility] Interpretation and review of laboratory results Abnormal [facility] Potassium [Moles/Vol] 4.5 mmol/L 3.5 - 5.1 mmol/L [facility] Sodium [Moles/Vol] 131 mmol/L Low 135 - 145 mmol/L [facility] Urea nitrogen [Mass/Vol] 25 mg/dL Male: 9-20 mg/dL; Female: 7-17 mg/dL [facility] CBC panel Auto (Bld)Ordered By: Ioana Arriaga on 10-12-2023 Erythrocyte distribution width (RBC) [Ratio] 14.8 % High 11.5 - 14.5 % [facility] Hematocrit (Bld) [Volume fraction] 37.5 % Male: 40.0-52.0 %; Female: 35.0-47.0 % [facility] Hemoglobin (Bld) [Mass/Vol] 12.4 g/dL 11.7 - 18.0 g/dL [facility] Interpretation and review of laboratory results Abnormal [facility] MCH (RBC) [Entitic mass] 28.1 pg 26.0 - 34.0 pg [facility] MCHC (RBC) [Mass/Vol] 33.0 % 32.0 - 36.0 % [facility] MCV (RBC) [Entitic vol] 85.1 fL 80.0 - 98.0 fL [facility] Platelet mean volume (Bld) [Entitic vol] 7.5 fL 7.4 - 12.4 fL [facility] Platelets (Bld) [#/Vol] 355 10*3/uL 140 - 440 10*3/uL [facility] RBC (Bld) [#/Vol] 4.40 10*6/uL Male: 4.40-5.90; Female: 3.80-5.20 [facility] WBC (Bld) [#/Vol] 7.4 10*3/uL 3.6 - 10.7 10*3/uL [facility] - Chemistry and C hemistry - challengeon 10-12-2023 Glucose [Mass/Vol] 359 mg/dL High 70 - 100 mg/dL [facility] Glucose [Mass/Vol] 327 mg/dL High 70 - 100 mg/dL [facility] Glucose [Mass/Vol] 364 mg/dL High 70 - 100 mg/dL [facility] Glucose [Mass/Vol] 304 mg/dL High 70 - 100 mg/dL [facility] Glucose [Mass/Vol] 411 mg/dL High 70 - 100 mg/dL [facility] Glucose [Mass/Vol] 387 mg/dL High 70 - 100 mg/dL [facility] - Microbiology an d Antimicrobial susceptibilityon 10-12-2023 Bacteria identified Cx Nom (Bld) No growth at 5 days [facility] No Panel Informationon 10-12 Interpretation and review of laboratory results Abnormal [facility] Interpretation and review of laboratory results Abnormal [facility] Interpretation and review of laboratory results Abnormal [facility] Interpretation and review of laboratory results Abnormal [facility] Interpretation and review of laboratory results Abnormal [facility] Interpretation and review of laboratory results Abnormal [facility] XR Chest Single viewon 10-12 [facility] Radiology Study observation (narrative) [facility] XR Chest Single viewOrdered By: Alejandro Mooney on 10-12-2023 [facility] [employer] Work Phone: Bacteria identified Cx Nom ( Bld)Ordered By: Nayeli Reyna on 10-11-2023 Interpretation and review of laboratory results Abnormal [facility] CBC panel Auto (Bld)Ordered By: Rose Lee on 10-11-2023 Erythrocyte distribution width (RBC) [Ratio] 14.8 % High 11.5 - 14.5 % [facility] Hematocrit (Bld) [Volume fraction] 32.1 % Male: 40.0-52.0 %; Female: 35.0-47.0 % [facility] Hemoglobin (Bld) [Mass/Vol] 10.9 g/dL Low 11.7 - 18.0 g/dL [facility] Interpretation and review of laboratory results Abnormal [facility] MCH (RBC) [Entitic mass] 28.5 pg 26.0 - 34.0 pg [facility] MCHC (RBC) [Mass/Vol] 33.8 % 32.0 - 36.0 % [facility] MCV (RBC) [Entitic vol] 84.2 fL 80.0 - 98.0 fL [facility] Platelet mean volume (Bld) [Entitic vol] 7.9 fL 7.4 - 12.4 fL [facility] Platelets (Bld) [#/Vol] 347 10*3/uL 140 - 440 10*3/uL [facility] RBC (Bld) [#/Vol] 3.82 10*6/uL Male: 4.40-5.90; Female: 3.80-5.20 [facility] WBC (Bld) [#/Vol] 9.4 10*3/uL 3.6 - 10.7 10*3/uL [facility] Comprehensive metabolic 1998 panelon 12-04-2023 Albumin [Mass/Vol] 3.8 g/dL 3.5 - 5.0 g/dL [facility] ALP [Catalytic activity/Vol] 143 U/L High 38 - 126 U/L [facility] ALT [Catalytic activity/Vol] 28 U/L Male: 0-49 U/L; Female: 0-34 U/L [facility] Anion gap [Moles/Vol] 12 mmol/L 3 - 13 mmol/L [facility] AST [Catalytic activity/Vol] 20 U/L 15 - 46 U/L [facility] Bilirubin [Mass/Vol] 0.7 mg/dL 0.2 - 1 .3 mg/dL [facility] Calcium [Mass/Vol] 8.7 mg/dL 8.4 - 10. 4 mg/dL [facility] Chloride [Moles/Vol] 95 mmol/L Low 98 - 10 7 mmol/L [facility] CO2 [Moles/Vol] 22 mmol/L 22 - 30 mmol/L [facility] Creatinine [Mass/Vol] 1.30 mg/dL Male: 0.66-1.25 mg/dL; Female: 0.52-1.04 mg/dL [facility] GFR/1.73 sq M.predicted MDRD (S/P/Bld) [Vol rate/Area] 48.4 mL/min/{1.73_m2} Low - PINF [facility] Glucose [Mass/Vol] 397 mg/dL High 70 - 100 mg/dL [facility] Potassium [Moles/Vol] 4.2 mmol/L 3.5 - 5.1 mmol/L [facility] Protein [Mass/Vol] 6.5 g/dL 6.3 - 8.2 g/dL [facility] Sodium [Moles/Vol] 128 mmol/L Low 135 - 145 mmol/L [facility] Urea nitrogen [Mass/Vol] 28 mg/dL Male: 9-20 mg/dL; Female: 7-17 mg/dL [facility] Creatinine (U) [Mass/Vol]on 10-11-2023 CREATININE, URINE 10.6 mg/dL No Range [facility] Glucose (Bld) [Mass/Vol]Orde red By: Summer Gull-Meghano on 10-11-2023 Glucose [Mass/Vol] 522 mg/dL Critically high 70 - 1 00 mg/dL [facility] Interpretation and review of laboratory results Abnormal [facility] - Chemistry and C hemistry - challengeon 10-11-2023 Glucose [Mass/Vol] 401 mg/dL High 70 - 100 mg/dL [facility] Sodium (24H U) [Mass/Vol] 71 mmol/L 30 - 90 mmol/L [facility] Glucose [Mass/Vol] mg/dL High 70 - 100 mg/dL [facility] Glucose [Mass/Vol] mg/dL High 70 - 100 mg/dL [facility] Glucose [Mass/Vol] 447 mg/dL High 70 - 100 mg/dL [facility] Glucose [Mass/Vol] 354 mg/dL High 70 - 100 mg/dL [facility] Magnesium [Mass/Vol] 1.3 mg/dL Low 1.6 - 2 .3 mg/dL [facility] Glucose [Mass/Vol] 386 mg/dL High 70 - 100 mg/dL [facility] - Microbiology an d Antimicrobial susceptibilityOrdered By: Nayeli Reyna on 10-11-2023 Bacteria identified Cx Nom (Bld) Acinetobacter lwoffii Critically abnormal [facility] No Panel Informationon 10-11 Interpretation and review of laboratory results Abnormal [facility] Interpretation and review of laboratory results Normal [facility] OSMOLALITY, URINE 318 [facility] Interpretation and review of laboratory results Normal [facility] Interpretation and review of laboratory results Abnormal [facility] Interpretation and review of laboratory results Abnormal [facility] Interpretation and review of laboratory results Abnormal [facility] Interpretation and review of laboratory results Abnormal [facility] Interpretation and review of laboratory results Abnormal [facility] Interpretation and review of laboratory results Abnormal [facility] Glucose (Bld) [Mass/Vol]Orde red By: Abner Vieyra on 10-10-2023 Glucose [Mass/Vol] 45 mg/dL Critically low 70 - 10 0 mg/dL [facility] Interpretation and review of laboratory results Abnormal [facility] - Chemistry and C hemistry - challengeon 10-10-2023 Glucose [Mass/Vol] 404 mg/dL High 70 - 100 mg/dL [facility] Glucose [Mass/Vol] 405 mg/dL High 70 - 100 mg/dL [facility] Glucose [Mass/Vol] 353 mg/dL High 70 - 100 mg/dL [facility] Glucose [Mass/Vol] 253 mg/dL High 70 - 100 mg/dL [facility] Glucose [Mass/Vol] 254 mg/dL High 70 - 100 mg/dL [facility] Glucose [Mass/Vol] 258 mg/dL High 70 - 100 mg/dL [facility] Glucose [Mass/Vol] 248 mg/dL High 70 - 100 mg/dL [facility] Glucose [Mass/Vol] 101 mg/dL High 70 - 100 mg/dL [facility] Glucose [Mass/Vol] 67 mg/dL Low 70 - 100 mg/dL [facility] Glucose [Mass/Vol] mg/dL Low 70 - 100 mg/dL [facility] Glucose [Mass/Vol] mg/dL Low 70 - 100 mg/dL [facility] No Panel Informationon 10-10 Interpretation and review of laboratory results Abnormal [facility] Interpretation and review of laboratory results Abnormal [facility] Interpretation and review of laboratory results Abnormal [facility] Interpretation and review of laboratory results Abnormal [facility] Interpretation and review of laboratory results Abnormal [facility] Interpretation and review of laboratory results Abnormal [facility] Interpretation and review of laboratory results Abnormal [facility] Interpretation and review of laboratory results Abnormal [facility] Interpretation and review of laboratory results Abnormal [facility] Interpretation and review of laboratory results Abnormal [facility] Interpretation and review of laboratory results Abnormal [facility] Bacteria identified Cx Nom ( U)Ordered By: Tessy Gonzalez on 10-09-2023 Interpretation and review of laboratory results Normal [facility] Basic metabolic 1998 panelon 10-09-2023 Anion gap [Moles/Vol] 9 mmol/L 3 - 13 mmol/L [facility] Calcium [Mass/Vol] 8.7 mg/dL 8.4 - 10. 4 mg/dL [facility] Chloride [Moles/Vol] 98 mmol/L 98 - 10 7 mmol/L [facility] CO2 [Moles/Vol] 23 mmol/L 22 - 30 mmol/L [facility] Creatinine [Mass/Vol] 0.76 mg/dL Male: 0.66-1.25 mg/dL; Female: 0.52-1.04 mg/dL [facility] GFR/1.73 sq M.predicted MDRD (S/P/Bld) [Vol rate/Area] - PINF [facility] Glucose [Mass/Vol] 344 mg/dL High 70 - 100 mg/dL [facility] Interpretation and review of laboratory results Abnormal [facility] Potassium [Moles/Vol] 4.5 mmol/L 3.5 - 5.1 mmol/L [facility] Sodium [Moles/Vol] 130 mmol/L Low 135 - 145 mmol/L [facility] Urea nitrogen [Mass/Vol] 23 mg/dL Male: 9-20 mg/dL; Female: 7-17 mg/dL [facility] - Chemistry and C hemistry - challengeon 10-09-2023 Glucose [Mass/Vol] 117 mg/dL High 70 - 100 mg/dL [facility] Glucose [Mass/Vol] 82 mg/dL 70 - 100 mg/dL [facility] Glucose [Mass/Vol] 176 mg/dL High 70 - 100 mg/dL [facility] Glucose [Mass/Vol] 210 mg/dL High 70 - 100 mg/dL [facility] Glucose [Mass/Vol] 207 mg/dL High 70 - 100 mg/dL [facility] Glucose [Mass/Vol] 318 mg/dL High 70 - 100 mg/dL [facility] Glucose [Mass/Vol] 377 mg/dL High 70 - 100 mg/dL [facility] Glucose [Mass/Vol] 337 mg/dL High 70 - 100 mg/dL [facility] Average glucose Estimated from glycated hemoglobin (Bld) [Mass/Vol] 174 mg/dL [facility] - Drug toxicology on 10-09-2023 Vancomycin [Mass/Vol] 11.5 ug/mL Low 15.0 - 20.0 ug/mL [facility] - Hematology and Cell countson 10-09-2023 HbA1c (Bld) [Mass fraction] 7.7 % High NINF - 5.7 % [facility] - Microbiology an d Antimicrobial susceptibilityOrdered By: Tessy Gonzalez on 10-09-2023 Bacteria identified Cx Nom (U) No growth (<1,000 CFU/mL) [facility] No Panel Informationon 10-09 Interpretation and review of laboratory results Abnormal [facility] Interpretation and review of laboratory results Normal [facility] Interpretation and review of laboratory results Abnormal [facility] Interpretation and review of laboratory results Abnormal [facility] Interpretation and review of laboratory results Abnormal [facility] Interpretation and review of laboratory results Abnormal [facility] Interpretation and review of laboratory results Abnormal [facility] Interpretation and review of laboratory results Abnormal [facility] Interpretation and review of laboratory results Abnormal [facility] Interpretation and review of laboratory results Abnormal [facility] Basic metabolic 1998 panelon 10-08-2023 Anion gap [Moles/Vol] 8 mmol/L 3 - 13 mmol/L [facility] Calcium [Mass/Vol] 8.1 mg/dL Low 8.4 - 10. 4 mg/dL [facility] Chloride [Moles/Vol] 100 mmol/L 98 - 10 7 mmol/L [facility] CO2 [Moles/Vol] 22 mmol/L 22 - 30 mmol/L [facility] Creatinine [Mass/Vol] 1.09 mg/dL Male: 0.66-1.25 mg/dL; Female: 0.52-1.04 mg/dL [facility] GFR/1.73 sq M.predicted MDRD (S/P/Bld) [Vol rate/Area] 59.7 mL/min/{1.73_m2} Low - PINF [facility] Glucose [Mass/Vol] 288 mg/dL High 70 - 100 mg/dL [facility] Potassium [Moles/Vol] 4.2 mmol/L 3.5 - 5.1 mmol/L [facility] Sodium [Moles/Vol] 130 mmol/L Low 135 - 145 mmol/L [facility] Urea nitrogen [Mass/Vol] 34 mg/dL Male: 9-20 mg/dL; Female: 7-17 mg/dL [facility] CBC W Auto Differential pane l (Bld)Ordered By: Sixto Yao on 10-08-2023 Basophils (Bld) [#/Vol] 0.1 10*3/uL 0.0 - 0.2 10*3/uL [facility] Basophils/100 WBC (Bld) 0.8 % 0.0 - 2.0 % [facility] Eosinophils (Bld) [#/Vol] 0.1 10*3/uL 0.0 - 0.5 10*3/uL [facility] Eosinophils/100 WBC (Bld) 0.9 % Low 1.0 - 6.0 % [facility] Erythrocyte distribution width (RBC) [Ratio] 15.7 % High 11.5 - 14.5 % [facility] Hematocrit (Bld) [Volume fraction] 31.6 % Male: 40.0-52.0 %; Female: 35.0-47.0 % [facility] Hemoglobin (Bld) [Mass/Vol] 10.6 g/dL Low 11.7 - 18.0 g/dL [facility] Interpretation and review of laboratory results Abnormal [facility] Lymphocytes (Bld) [#/Vol] 2.7 10*3/uL 1.0 - 4.3 10*3/uL [facility] Lymphocytes/100 WBC (Bld) 26.5 % 20.0 - 40.0 % [facility] MCH (RBC) [Entitic mass] 28.5 pg 26.0 - 34.0 pg [facility] MCHC (RBC) [Mass/Vol] 33.5 % 32.0 - 36.0 % [facility] MCV (RBC) [Entitic vol] 84.9 fL 80.0 - 98.0 fL [facility] Monocytes (Bld) [#/Vol] 0.7 10*3/uL 0.0 - 0.8 10*3/uL [facility] Monocytes/100 WBC (Bld) 7.3 % 2.0 - 10.0 % [facility] Neutrophils (Bld) [#/Vol] 6.5 10*3/uL 1.8 - 7.0 10*3/uL [facility] Neutrophils/100 WBC (Bld) 64.5 % 40.0 - 80.0 % [facility] Nucleated RBC/100 WBC (Bld) [Ratio] 0.1 % [facility] Platelet mean volume (Bld) [Entitic vol] 8.3 fL 7.4 - 12.4 fL [facility] [employer] Platelets (Bld) [#/Vol] 339 10*3/uL 140 - 440 10*3/uL [facility] RBC (Bld) [#/Vol] 3.72 10*6/uL Male: 4.40-5.90; Female: 3.80-5.20 [facility] WBC (Bld) [#/Vol] 10.1 10*3/uL 3.6 - 10.7 10*3/uL [facility] CT Abdomen and Pelvis W cont rast Erica 10-08-2023 [facility] RADIOLOGY [facility] Radiology Study observation (narrative) [facility] CT Abdomen and Pelvis W cont rast IVOrdered By: Bao Hill on 10-08-2023 [facility] Work Phone: Hepatic function 2000 panelo n 10-08-2023 Albumin [Mass/Vol] 3.2 g/dL Low 3.5 - 5.0 g/dL [facility] ALP [Catalytic activity/Vol] 143 U/L High 38 - 126 U/L [facility] ALT [Catalytic activity/Vol] 42 U/L Male: 0-49 U/L; Female: 0-34 U/L [facility] AST [Catalytic activity/Vol] 33 U/L 15 - 46 U/L [facility] Bilirubin [Mass/Vol] 0.9 mg/dL 0.2 - 1 .3 mg/dL [facility] Bilirubin.conjugated [Mass/Vol] 0.0 mg/dL 0.0 - 0.3 mg/dL [facility] Protein [Mass/Vol] 5.9 g/dL Low 6.3 - 8.2 g/dL [facility] - Chemistry and C hemistry - challengeon 10-08-2023 Glucose [Mass/Vol] 373 mg/dL High 70 - 100 mg/dL [facility] Glucose [Mass/Vol] 348 mg/dL High 70 - 100 mg/dL [facility] Glucose [Mass/Vol] 386 mg/dL High 70 - 100 mg/dL [facility] Glucose [Mass/Vol] 271 mg/dL High 70 - 100 mg/dL [facility] Ammonia (P) [Moles/Vol] 29 umol/L 9 - 30 umol/L [facility] MRSA DNA YASIR+probe Ql (Nose) on 10-08-2023 Interpretation and review of laboratory results Abnormal [facility] mecA gene Detected Abnormal Not Detected [facility] Staphylococcus aureus Detected Abnormal Not Detected [facility] No Panel Informationon 10-08 Interpretation and review of laboratory results Abnormal [facility] Interpretation and review of laboratory results Abnormal [facility] Interpretation and review of laboratory results Abnormal [facility] Interpretation and review of laboratory results Abnormal [facility] Interpretation and review of laboratory results Abnormal [facility] Interpretation and review of laboratory results Normal [facility] No Panel InformationOrdered By: Memo Bergman on 10-08-2023 Targets Detected Not detected [facility] Abdomen limitedon 023 [facility] RAD[facility] Radiology Study observation (narrative) [facility] Abdomen limitedOrdered By : Javy Urias on 10-08-2023 [facility] Work Phone: CBC W Auto Differential pane l (Bld)Ordered By: Olamide Espino on 10-07-2023 Basophils (Bld) [#/Vol] 0.0 10*3/uL 0.0 - 0.2 10*3/uL [facility] Basophils/100 WBC (Bld) 0.2 % 0.0 - 2.0 % [facility] Eosinophils (Bld) [#/Vol] 0.0 10*3/uL 0.0 - 0.5 10*3/uL [facility] Eosinophils/100 WBC (Bld) 0.2 % Low 1.0 - 6.0 % [facility] Erythrocyte distribution width (RBC) [Ratio] 14.2 % 11.5 - 14.5 % [facility] Hematocrit (Bld) [Volume fraction] 41.5 % Male: 40.0-52.0 %; Female: 35.0-47.0 % [facility] Hemoglobin (Bld) [Mass/Vol] 13.2 g/dL 11.7 - 18.0 g/dL [facility] Immature granulocytes (Bld) [#/Vol] 0.1 10*3/uL High NINF - 0.0 10*3/uL [facility] Immature granulocytes/100 WBC (Bld) 0.8 % High NINF - 0.0 % [facility] Interpretation and review of laboratory results Abnormal [facility] Lymphocytes (Bld) [#/Vol] 1.0 10*3/uL 1.0 - 4.3 10*3/uL [facility] Lymphocytes/100 WBC (Bld) 7.5 % Low 20.0 - 40.0 % [facility] MCH (RBC) [Entitic mass] 27.8 pg 26.0 - 34.0 pg [facility] MCHC (RBC) [Mass/Vol] 31.8 % Low 32.0 - 36.0 % [facility] MCV (RBC) [Entitic vol] 87.4 fL 80.0 - 98.0 fL [facility] Monocytes (Bld) [#/Vol] 0.8 10*3/uL 0.0 - 0.8 10*3/uL [facility] Monocytes/100 WBC (Bld) 5.9 % 2.0 - 10.0 % [facility] Neutrophils (Bld) [#/Vol] 11.3 10*3/uL High 1.8 - 7.0 10*3/uL [facility] Neutrophils/100 WBC (Bld) 85.4 % High 40.0 - 80.0 % [facility] Platelet mean volume (Bld) [Entitic vol] 9.4 fL 7.4 - 12.4 fL [facility] Platelets (Bld) [#/Vol] 438 10*3/uL 140 - 440 10*3/uL [facility] RBC (Bld) [#/Vol] 4.75 10*6/uL Male: 4.40-5.90; Female: 3.80-5.20 [facility] WBC (Bld) [#/Vol] 13.3 10*3/uL High 3.6 - 10.7 10*3/uL [facility] CT Head WO contraston 2022 Mild parenchymal vol ume loss. No evidence of acute intracranial process. 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 Report Dictated on Electronically Signed By: Angel Randhawa MD Electronically Signed Date/Time: 10/07/2023 7:47 AM [facility] [employer] Patient Name: WILL ALVARADO : 1965 Exam Date/Time: 10/07/2023 07:29 Procedure: CT HEAD WO IV CONTRAST Ordering Provider: MUSTAFA KATHRYN Reason For Exam: AMS UNENHANCED HEAD CT History: Change in mental status Comparison: None available Technique: Multislice axial CT sections obtained from the base to the vertex of the brain without IV contrast enhancement. Multiplanar sagittal and coronal reconstructed images also obtained. Dose reduction employed with automated exposure control. Findings: There is mild parenchymal loss with prominent cortical sulci and fissures, not unusual for age. The ventricles are normal in size for age. There is no intracranial hemorrhage, midline shift, or other mass effect in the brain. The exam is limited without contrast enhancement. There are mild carotid siphon calcifications. The paranasal sinuses and bilateral mastoid air cells are clear. There is spondylosis with prominent calcific/ossific densities at the cervical cranial and C1-C2 junction that are not adequately visualized for proper evaluation. [facility] Angel Randhawa MD - 10/07/2023 Patient Name: WILL JACINTO : 1965 Exam Date/Time: 10/07/2023 07:29 Procedure: CT HEAD WO IV CONTRAST Ordering Provider: MUSTAFA KATHRYN Reason For Exam: AMS UNENHANCED HEAD CT History: Change in mental status Comparison: None available Technique: Multislice axial CT sections obtained from the base to the vertex of the brain without IV contrast enhancement. Multiplanar sagittal and coronal reconstructed images also obtained. Dose reduction employed with automated exposure control. Findings: There is mild parenchymal loss with prominent cortical sulci and fissures, not unusual for age. The ventricles are normal in size for age. There is no intracranial hemorrhage, midline shift, or other mass effect in the brain. The exam is limited without contrast enhancement. There are mild carotid siphon calcifications. The paranasal sinuses and bilateral mastoid air cells are clear. There is spondylosis with prominent calcific/ossific densities at the cervical cranial and C1-C2 junction that are not adequately visualized for proper evaluation. IMPRESSION: Mild parenchymal volume loss. No evidence of acute intracranial process. 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 Report Dictated on Electronically Signed By: Angel Randhawa MD Electronically Signed Date/Time: 10/07/2023 7:47 AM EST [facility] RADIOLOGY SYSTEM [facility] RAD[facility] SYSTEM [facility] Radiology Study observation (narrative) [facility] CT Head WO contrastOrdered B y: Angel Randhawa on 10-07-2023 [facility] Work Phone: Comprehensive metabolic 1998 panelon 10-07-2023 Albumin [Mass/Vol] 4.1 g/dL 3.5 - 5.0 g/dL [facility] ALP [Catalytic activity/Vol] 133 U/L High 38 - 126 U/L [facility] ALT [Catalytic activity/Vol] 46 U/L Male: 0-49 U/L; Female: 0-34 U/L [facility] Anion gap [Moles/Vol] 11 mmol/L 3 - 13 mmol/L [facility] AST [Catalytic activity/Vol] 36 U/L 15 - 46 U/L [facility] Bilirubin [Mass/Vol] 0.4 mg/dL 0.2 - 1 .3 mg/dL [facility] Calcium [Mass/Vol] 8.8 mg/dL 8.4 - 10. 4 mg/dL [facility] Chloride [Moles/Vol] 100 mmol/L 98 - 10 7 mmol/L [facility] CO2 [Moles/Vol] 27 mmol/L 22 - 30 mmol/L [facility] Creatinine [Mass/Vol] 0.74 mg/dL Male: 0.66-1.25 mg/dL; Female: 0.52-1.04 mg/dL [facility] GFR/1.73 sq M.predicted MDRD (S/P/Bld) [Vol rate/Area] - PINF [facility] Glucose [Mass/Vol] 120 mg/dL High 70 - 100 mg/dL [facility] Interpretation and review of laboratory results Abnormal [facility] Potassium [Moles/Vol] 4.4 mmol/L 3.5 - 5.1 mmol/L [facility] Protein [Mass/Vol] 7.7 g/dL 6.3 - 8.2 g/dL [facility] Sodium [Moles/Vol] 138 mmol/L 135 - 145 mmol/L [facility] Urea nitrogen [Mass/Vol] 20 mg/dL Male: 9-20 mg/dL; Female: 7-17 mg/dL [facility] Ethanol (Bld) [Mass/Vol]on 12-07-2022 Ethanol [Mass/Vol] g/dL 0.000 - 0.010 g/dL [facility] Laboratory - Chemistry and C hemistry - challengeon 10-07-2023 Glucose [Mass/Vol] 267 mg/dL High 70 - 100 mg/dL [facility] Procalcitonin [Mass/Vol] 0.83 ng/mL High 0.00 - 0.09 ng/mL [facility] Lipase [Catalytic activity/Vol] 34 U/L 23 - 300 U/L [facility] Glucose [Mass/Vol] 176 mg/dL High 70 - 100 mg/dL [facility] Glucose [Mass/Vol] 111 mg/dL High 70 - 100 mg/dL [facility] Glucose [Mass/Vol] 81 mg/dL 70 - 100 mg/dL [facility] Glucose [Mass/Vol] 91 mg/dL 70 - 100 mg/dL [facility] Glucose [Mass/Vol] 100 mg/dL 70 - 100 mg/dL [facility] Glucose [Mass/Vol] 129 mg/dL High 70 - 100 mg/dL [facility] Glucose [Mass/Vol] 129 mg/dL [facility] Glucose [Mass/Vol] 129 mg/dL [facility] Glucose [Mass/Vol] 129 mg/dL High 70 - 100 mg/dL [facility] Glucose [Mass/Vol] 151 mg/dL [facility] Glucose [Mass/Vol] 151 mg/dL High 70 - 100 mg/dL [facility] Lactate [Moles/Vol] 1.2 mmol/L 0.7 - 2. 0 mmol/L [facility] Glucose [Mass/Vol] 100 mg/dL 70 - 100 mg/dL [facility] Glucose [Mass/Vol] 68 mg/dL Low 70 - 100 mg/dL [facility] Laboratory - Drug toxicology Ordered By: Annie Flynn on 10-07-2023 Amphetamines Screen method >1000 ng/mL Ql (U) Negative [facility] Barbiturates Screen method >200 ng/mL Ql (U) Negative [facility] Benzodiazepines Ql (U) Negative [facility] Methadone Screen Ql (U) Negative [facility] Opiates Screen Ql (U) Negative [facility] oxyCODONE Ql (U) Negative [facility] Phencyclidine Ql (U) Negative [facility] No Panel Informationon 10-07 Interpretation and review of laboratory results Abnormal [facility] Interpretation and review of laboratory results Normal [facility] Interpretation and review of laboratory results Abnormal [facility] Interpretation and review of laboratory results Abnormal [facility] Interpretation and review of laboratory results Normal [facility] Interpretation and review of laboratory results Normal [facility] Interpretation and review of laboratory results Normal [facility] Interpretation and review of laboratory results Abnormal [facility] Interpretation and review of laboratory results Normal [facility] Interpretation and review of laboratory results Normal [facility] Interpretation and review of laboratory results Abnormal [facility] Interpretation and review of laboratory results Normal [facility] Interpretation and review of laboratory results Abnormal [facility] Interpretation and review of laboratory results Normal [facility] Interpretation and review of laboratory results Normal [facility] Interpretation and review of laboratory results Abnormal [facility] No Panel InformationOrdered By: Annie Flynn on 10-07-2023 COCAINE METAB. SCREEN Negative [facility] Procalcitonin [Mass/Vol]on 12-07-2022 Interpretation and review of laboratory results Abnormal [facility] Respiratory pathogens DNA an d RNA panel YASIR+non-probe (Nph)on 10-07-2023 Adenovirus Not detected Not Detected [facility] B. pertussis DNA YASIR+probe Ql (Unsp spec) Not detected Not Detected [facility] Bordetella parapertussis Not detected Not Detected [facility] Chlamydia pneumoniae Not detected Not Detected [facility] Coronavirus 229E Not detected Not Detected [facility] Coronavirus HKU1 Not detected Not Detected [facility] Coronavirus NL63 Not detected Not Detected [facility] Coronavirus OC43 Not detected Not Detected [facility] FLUAV RNA YASIR+non-probe Ql (Nph) Not detected Not Detected [facility] FLUBV RNA YASIR+non-probe Ql (Nph) Not detected Not Detected [facility] Human Metapneumovirus Not detected Not Detected [facility] Human Rhinovirus/Enterovirus Not detected Not Detected [facility] Interpretation and review of laboratory results Normal [facility] Mycoplasma pneumoniae Not detected Not Detected [facility] Parainfluenza 1 Not detected Not Detected [facility] Parainfluenza 2 Not detected Not Detected [facility] Parainfluenza 3 Not detected Not Detected [facility] Parainfluenza 4 Not detected Not Detected [facility] Respiratory Syncytial Virus Not detected Not Detected [facility] SARS-CoV-2 (COVID-19) RNA YASIR+non-probe Ql (Nph) Not detected Not Detected [facility] Urinalysis complete panel (U )on 10-07-2023 Bacteria LM.HPF (Urine sed) [#/Area] Negative Negative /HPF [facility] Bilirubin Ql (U) Negative Negative mg/dL [facility] Clarity (U) Clear Clear [facility] Color (U) Yellow Lt. Yellow [facility] Epithelial cells.squamous LM.HPF (Urine sed) [#/Area] Negative [facility] Glucose Ql (U) 300 mg/dL Abnormal Normal (<70) [facility] Hemoglobin Ql (U) Negative Negative mg/dL [facility] Interpretation and review of laboratory results Abnormal [facility] Ketones (U) [Mass/Vol] Negative Negat bernard mg/dL [facility] Leukocyte esterase Test strip Ql (U) Negative Negative Kat/uL [facility] Mucus LM.HPF (Urine sed) [#/Area] Few Negative /LPF [facility] Nitrite Ql (U) Negative Negative [facility] pH (U) 6.0 [pH] 5.0 - 8.0 pH [facility] Protein (U) [Mass/Vol] 300 mg/dL Abnormal Negative [facility] RBC LM.HPF (Urine sed) [#/Area] 0-2 [facility] Specific gravity (U) [Rel density] 1.023 1.005 - 1.030 [facility] Urobilinogen (U) [Mass/Vol] Normal Normal (0-1) mg/dL [facility] Volume, Urine 12 mL [facility] WBC LM.HPF (Urine sed) [#/Area] 3-5 [facility] XR Chest Single viewon 10-07 [facility] Radiology Study observation (narrative) [facility] Whole blood hemoglobin A1c/t otal hemoglobin ratio (mass fraction)Ordered By: Jared Guzman on 09-20-2023 HbA1c (Bld) [Mass fraction] 7.3 % 3.8-5.6 [facility] Comment on above: Normal < 5.7 % Predi abetic 5.7 - 6.4 % Diabetic >or= 6.5 % Please note range changes. Basic metabolic 1998 panelon 08-19-2023 Anion gap [Moles/Vol] 5 mmol/L 3 - 13 mmol/L [facility] Calcium [Mass/Vol] 8.4 mg/dL 8.4 - 10. 4 mg/dL [facility] Chloride [Moles/Vol] 99 mmol/L 98 - 10 7 mmol/L [facility] CO2 [Moles/Vol] 26 mmol/L 22 - 30 mmol/L [facility] Creatinine [Mass/Vol] 1.00 mg/dL Male: 0.66-1.25 mg/dL; Female: 0.52-1.04 mg/dL [facility] GFR/1.73 sq M.predicted MDRD (S/P/Bld) [Vol rate/Area] 66.3 mL/min/{1.73_m2} - PINF [facility] Comment on above: Calculation based on the Chronic Kidney Disease Epidemiology Collaboration (CKD-EPI) equation refit without adjustment for race Glucose [Mass/Vol] 223 mg/dL High 70 - 100 mg/dL [facility] Interpretation and review of laboratory results Abnormal [facility] Potassium [Moles/Vol] 4.4 mmol/L 3.5 - 5.1 mmol/L [facility] Sodium [Moles/Vol] 130 mmol/L Low 135 - 145 mmol/L [facility] Urea nitrogen [Mass/Vol] 23 mg/dL Male: 9-20 mg/dL; Female: 7-17 mg/dL [facility] CBC panel Auto (Bld)Ordered By: Joel Houston on 08-19-2023 Erythrocyte distribution width (RBC) [Ratio] 15.3 % High 11.5 - 14.5 % [facility] Hematocrit (Bld) [Volume fraction] 36.3 % Male: 40.0-52.0 %; Female: 35.0-47.0 % [facility] Hemoglobin (Bld) [Mass/Vol] 12.2 g/dL 11.7 - 18.0 g/dL [facility] Interpretation and review of laboratory results Abnormal [facility] MCH (RBC) [Entitic mass] 27.7 pg 26.0 - 34.0 pg [facility] MCHC (RBC) [Mass/Vol] 33.7 % 32.0 - 36.0 % [facility] MCV (RBC) [Entitic vol] 82.2 fL 80.0 - 98.0 fL [facility] Platelet mean volume (Bld) [Entitic vol] 7.8 fL 7.4 - 12.4 fL [facility] Platelets (Bld) [#/Vol] 402 10*3/uL 140 - 440 10*3/uL [facility] RBC (Bld) [#/Vol] 4.41 10*6/uL Male: 4.40-5.90; Female: 3.80-5.20 [facility] WBC (Bld) [#/Vol] 8.6 10*3/uL 3.6 - 10.7 10*3/uL [facility] Laboratory - Chemistry and C hemistry - challengeon 08-19-2023 Glucose [Mass/Vol] 196 mg/dL High 70 - 100 mg/dL [facility] Glucose [Mass/Vol] 255 mg/dL High 70 - 100 mg/dL [facility] Glucose [Mass/Vol] 236 mg/dL High 70 - 100 mg/dL [facility] No Panel Informationon 08-19 Interpretation and review of laboratory results Abnormal [facility]formed by: [facility], [address] [place] [id number] CLIA ID: [id number] [facility] Interpretation and review of laboratory results Abnormal [facility] Performed by: [facility], [address] [place] [id number] CLIA ID: [id number] [facility] Interpretation and review of laboratory results Abnormal [facility] Performed by: [facility], [address] [place] [id number] CLIA ID: [id number] [facility] Sinus bradycardia Left bundle branch block Prolonged QT interval Compared to ECG 08/08/2023 06:58:13 Left bundle-branch block now present Electronically Signed On 08-19-2023 7:37:13 EDT by Nicolas Byrne D O - 08/19/2023 IMPRESSION: Sinus bradycardia Left bundle branch block Prolonged QT interval Compared to ECG 08/08/2023 06:58:13 Left bundle-branch block now present Electronically Signed On 08-19-2023 7:37:13 EDT by Nicolas Rose [facility] No Panel InformationOrdered By: Nicolas Rose on 08-19-2023 P [place] 40 degrees [employer] Work Phone: NM Interval 194 ms [employer] Work Phone: QRS [place] -30 degrees [employer] Work Phone: QRSD Interval 140 ms [employer] Work Phone: QT Interval 632 ms [employer] Work Phone: QTC Interval 563 ms [employer] Work Phone: [phone] T Wave [place] -4 degrees [employer] Work Phone: [employer] Work Phone: Vital signsOrdered By: Harman Rose on 08-19-2023 Heart rate 48 /min bpm [employer] Work Phone: Basic metabolic 1998 panelon 08-18-2023 Anion gap [Moles/Vol] 6 mmol/L 3 - 13 mmol/L [facility] Calcium [Mass/Vol] 8.0 mg/dL Low 8.4 - 10. 4 mg/dL [facility] Chloride [Moles/Vol] 100 mmol/L 98 - 10 7 mmol/L [facility] CO2 [Moles/Vol] 24 mmol/L 22 - 30 mmol/L [facility] Creatinine [Mass/Vol] 0.76 mg/dL Male: 0.66-1.25 mg/dL; Female: 0.52-1.04 mg/dL [facility] GFR/1.73 sq M.predicted MDRD (S/P/Bld) [Vol rate/Area] - PINF [facility] Comment on above: Calculation based on the Chronic Kidney Disease Epidemiology Collaboration (CKD-EPI) equation refit without adjustment for race Glucose [Mass/Vol] 311 mg/dL High 70 - 100 mg/dL [facility] Interpretation and review of laboratory results Abnormal [facility] Potassium [Moles/Vol] 4.2 mmol/L 3.5 - 5.1 mmol/L [facility] Sodium [Moles/Vol] 130 mmol/L Low 135 - 145 mmol/L [facility] Urea nitrogen [Mass/Vol] 24 mg/dL Male: 9-20 mg/dL; Female: 7-17 mg/dL [facility] CBC W Auto Differential pane l (Bld)Ordered By: Alex Kwok on 08-18-2023 Basophils (Bld) [#/Vol] 0.1 10*3/uL 0.0 - 0.2 10*3/uL [facility] Basophils/100 WBC (Bld) 0.7 % 0.0 - 2.0 % [facility] Eosinophils (Bld) [#/Vol] 0.2 10*3/uL 0.0 - 0.5 10*3/uL [facility] Eosinophils/100 WBC (Bld) 1.2 % 1.0 - 6.0 % [facility] Erythrocyte distribution width (RBC) [Ratio] 15.2 % High 11.5 - 14.5 % [facility] Hematocrit (Bld) [Volume fraction] 36.1 % Male: 40.0-52.0 %; Female: 35.0-47.0 % [facility] Hemoglobin (Bld) [Mass/Vol] 12.2 g/dL 11.7 - 18.0 g/dL [facility] Interpretation and review of laboratory results Abnormal [facility] Lymphocytes (Bld) [#/Vol] 2.3 10*3/uL 1.0 - 4.3 10*3/uL [facility] Lymphocytes/100 WBC (Bld) 17.5 % Low 20.0 - 40.0 % [facility] MCH (RBC) [Entitic mass] 28.2 pg 26.0 - 34.0 pg [facility] MCHC (RBC) [Mass/Vol] 33.9 % 32.0 - 36.0 % [facility] MCV (RBC) [Entitic vol] 83.0 fL 80.0 - 98.0 fL [facility] Monocytes (Bld) [#/Vol] 1.2 10*3/uL High 0.0 - 0.8 10*3/uL [facility] Monocytes/100 WBC (Bld) 8.8 % 2.0 - 10.0 % [facility] Neutrophils (Bld) [#/Vol] 9.5 10*3/uL High 1.8 - 7.0 10*3/uL [facility] Neutrophils/100 WBC (Bld) 71.8 % 40.0 - 80.0 % [facility] Nucleated RBC/100 WBC (Bld) [Ratio] 0.0 % [facility] Platelet mean volume (Bld) [Entitic vol] 7.7 fL 7.4 - 12.4 fL [facility] Platelets (Bld) [#/Vol] 388 10*3/uL 140 - 440 10*3/uL [facility] RBC (Bld) [#/Vol] 4.35 10*6/uL Male: 4.40-5.90; Female: 3.80-5.20 [facility] WBC (Bld) [#/Vol] 13.2 10*3/uL High 3.6 - 10.7 10*3/uL [facility] Laboratory - Chemistry and C hemistry - challengeon 08-18-2023 Glucose [Mass/Vol] 294 mg/dL High 70 - 100 mg/dL [facility] Glucose [Mass/Vol] 339 mg/dL High 70 - 100 mg/dL [facility] Glucose [Mass/Vol] 363 mg/dL High 70 - 100 mg/dL [facility] Glucose [Mass/Vol] 398 mg/dL High 70 - 100 mg/dL [facility] No Panel Informationon 08-18 Interpretation and review of laboratory results Abnormal [facility] Performed by: [facility], [address] [place] [id number] CLIA ID: [id number] [facility] Interpretation and review of laboratory results Abnormal [facility] Performed by: [facility], [address] [facility] [address] CLIA ID: [id number] [facility] Interpretation and review of laboratory results Abnormal [facility] Performed by: [facility], [address], [facility] [address] CLIA ID: [id number] [facility] Interpretation and review of laboratory results Abnormal [facility] Performed by: [facility], [address] [facility] [address] CLIA ID: [id number] [facility] Basophil percentageon 2022 Sodium [Moles/Vol] 132 mmol/L 136-145 [facility] Basophil percentageOrdered B y: Jared Guzman on 08-17-2023 Bilirubin [Mass/Vol] 0.60 mg/dL 0.20-1.00 [facility] Comment on above: For patients on eltr ombopag therapy, use of Dimension [place] TBIL is not recommended. Chloride [Moles/Vol] 100 mmol/L 98-107 [facility] Glucose [Mass/Vol] 240 mg/dL 74-106 [facility] Comment on above: Glucose result great er than or equal to 200 mg/dLsuggests DIABETES MELLITUS per A.D.A. criteria. Potassium [Moles/Vol] 4.3 mmol/L 3.5-5.[address] [facility] Protein [Mass/Vol] 6.8 g/dL 6.4-8.2 [facility] WBC (Bld) [#/Vol] 9.3 10*3/uL 4.4-11.0 [facility] Blood erythrocytes count (nu mber/volume)Ordered By: Jared Guzman on 08-17-2023 RBC (Bld) [#/Vol] 4.64 10*6/uL 4.2-5.4 [facility] Blood hemoglobin measurement (mass/volume)Ordered By: Jared Guzman on 08-17-2023 Hemoglobin (Bld) [Mass/Vol] 12.4 g/dL 12.0-15.0 [facility] Blood platelet mean volumeOr dered By: Jared Guzman on 08-17-2023 Platelet mean volume (Bld) [Entitic vol] 9.8 fL 6.2-12.0 [facility] CBC W Auto Differential pane l (Bld)Ordered By: Bisi Bloom on 08-17-2023 Basophils (Bld) [#/Vol] 0.1 10*3/uL 0.0 - 0.2 10*3/uL [facility] Basophils/100 WBC (Bld) 0.8 % 0.0 - 2.0 % [facility] Eosinophils (Bld) [#/Vol] 0.1 10*3/uL 0.0 - 0.5 10*3/uL [facility] Eosinophils/100 WBC (Bld) 0.4 % Low 1.0 - 6.0 % [facility] Erythrocyte distribution width (RBC) [Ratio] 15.3 % High 11.5 - 14.5 % [facility] Hematocrit (Bld) [Volume fraction] 37.7 % Male: 40.0-52.0 %; Female: 35.0-47.0 % [facility] Hemoglobin (Bld) [Mass/Vol] 12.5 g/dL 11.7 - 18.0 g/dL [facility] Interpretation and review of laboratory results Abnormal [facility] Lymphocytes (Bld) [#/Vol] 3.6 10*3/uL 1.0 - 4.3 10*3/uL [facility] Lymphocytes/100 WBC (Bld) 24.4 % 20.0 - 40.0 % [facility] MCH (RBC) [Entitic mass] 27.2 pg 26.0 - 34.0 pg [facility] MCHC (RBC) [Mass/Vol] 33.1 % 32.0 - 36.0 % [facility] MCV (RBC) [Entitic vol] 82.4 fL 80.0 - 98.0 fL [facility] Monocytes (Bld) [#/Vol] 1.3 10*3/uL High 0.0 - 0.8 10*3/uL [facility] Monocytes/100 WBC (Bld) 8.5 % 2.0 - 10.0 % [facility] Neutrophils (Bld) [#/Vol] 9.7 10*3/uL High 1.8 - 7.0 10*3/uL [facility] Neutrophils/100 WBC (Bld) 65.9 % 40.0 - 80.0 % [facility] Nucleated RBC/100 WBC (Bld) [Ratio] 0.0 % [facility] Platelet mean volume (Bld) [Entitic vol] 7.5 fL 7.4 - 12.4 fL [facility] Platelets (Bld) [#/Vol] 468 10*3/uL High 140 - 440 10*3/uL [facility] RBC (Bld) [#/Vol] 4.57 10*6/uL Male: 4.40-5.90; Female: 3.80-5.20 [facility] WBC (Bld) [#/Vol] 14.7 10*3/uL High 3.6 - 10.7 10*3/uL [facility] CT Abdomen and Pelvis W cont rast Erica 08-17-2023 Limited study due to the patient's arms lying aside the torso.. Slight prominence of the left renal pelvis. Question subtle fat stranding adjacent to the mid left ureter. Correlate with urinalysis and clinically for recently passed renal stone. Enlarging right middle lobe pulmonary nodule, measuring approximately 8 mm. Short-term interval follow-up chest CT recommended. Findings within the spine suggestive of DISH versus ankylosing spondylitis. Report Dictated on Electronically Signed By: Milton Guy MD Electronically Signed Date/Time: 08/17/2023 4:21 PM T [facility] 1965 [id number] Exam Date/Time: 08/17/2023 15:08 Procedure: CT ABDOMEN PELVIS W CONTRAST Ordering Provider: BURGOS TYLER Reason For Exam: upper abd pain, nausea, vomit, eval for infection, obstruction EXAMINATION: CT abdomen/pelvis Indication: upper abd pain, nausea, vomit, eval for infection, obstruction TECHNIQUE: Axial CT images of the abdomen/pelvis were obtained without oral and with IV contrast (75 cc Isovue 370) at 3 mm intervals. Images were acquired from the lung bases through the symphysis pubis. Dose reduction was employed with automatic exposure control. Coronal and sagittal reconstructions were also provided for review. FINDINGS: The patient's arm is located along side the torso, which causes some artifact and limits assessment Question subtle fat stranding adjacent to the mid left ureter on axial image 116. Slight prominence of the left renal collecting system is present. The solid organs in the upper abdomen are grossly unremarkable. The pelvic contents are grossly unremarkable. The aorta is of normal caliber. No abdominal/pelvic adenopathy present. The large and small bowel are grossly unremarkable. The stomach is grossly unremarkable. Fairly extensive degenerative changes of the spine are present with bridging osteophytes or syndesmophytes throughout the lower thoracic and lumbar spine. Fairly extensive degenerative facet changes are present which does contribute to central canal stenosis within the lumbar spine. 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 Mild scarring or atelectasis of the lung bases is noted. Right middle lobe pulmonary nodule measures approximately 8 mm, somewhat similar to 08/08/2023 and increased in size since November 2020. [facility] Milton Guy MD - 08/17/2023 Patient Name: [facility]ACINTO [facility] 1965 [id number] Exam Date/Time: 08/17/2023 15:08 Procedure: CT ABDOMEN PELVIS W CONTRAST Ordering Provider: BURGOS TYLER Reason For Exam: upper abd pain, nausea, vomit, eval for infection, obstruction EXAMINATION: CT abdomen/pelvis Indication: upper abd pain, nausea, vomit, eval for infection, obstruction TECHNIQUE: Axial CT images of the abdomen/pelvis were obtained without oral and with IV contrast (75 cc Isovue 370) at 3 mm intervals. Images were acquired from the lung bases through the symphysis pubis. Dose reduction was employed with automatic exposure control. Coronal and sagittal reconstructions were also provided for review. FINDINGS: The patient's arm is located along side the torso, which causes some artifact and limits assessment Question subtle fat stranding adjacent to the mid left ureter on axial image 116. Slight prominence of the left renal collecting system is present. The solid organs in the upper abdomen are grossly unremarkable. The pelvic contents are grossly unremarkable. The aorta is of normal caliber. No abdominal/pelvic adenopathy present. The large and small bowel are grossly unremarkable. The stomach is grossly unremarkable. Fairly extensive degenerative changes of the spine are present with bridging osteophytes or syndesmophytes throughout the lower thoracic and lumbar spine. Fairly extensive degenerative facet changes are present which does contribute to central canal stenosis within the lumbar spine. 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 Mild scarring or atelectasis of the lung bases is noted. Right middle lobe pulmonary nodule measures approximately 8 mm, somewhat similar to 08/08/2023 and increased in size since November 2020. IMPRESSION: Limited study due to the patient's arms lying aside the torso.. Slight prominence of the left renal pelvis. Question subtle fat stranding adjacent to the mid left ureter. Correlate with urinalysis and clinically for recently passed renal stone. Enlarging right middle lobe pulmonary nodule, measuring approximately 8 mm. Short-term interval follow-up chest CT recommended. Findings within the spine suggestive of DISH versus ankylosing spondylitis. Report Dictated on Electronically Signed By: Milton Guy MD Electronically Signed Date/Time: 08/17/2023 4:21 PM EDT [facility] Radiology Study observation (narrative) [facility] CT Abdomen and Pelvis W cont rast IVOrdered By: Milton Guy on 08-17-2023 [facility] Work Phone: Comprehensive metabolic 1998 panelon 08-17-2023 Albumin [Mass/Vol] 4.0 g/dL 3.5 - 5.0 g/dL [facility] ALP [Catalytic activity/Vol] 136 U/L High 38 - 126 U/L [facility] ALT [Catalytic activity/Vol] 47 U/L Male: 0-49 U/L; Female: 0-34 U/L [facility] Anion gap [Moles/Vol] 4 mmol/L 3 - 13 mmol/L [facility] AST [Catalytic activity/Vol] 29 U/L 15 - 46 U/L [facility] Bilirubin [Mass/Vol] 0.5 mg/dL 0.2 - 1 .3 mg/dL [facility] Calcium [Mass/Vol] 8.8 mg/dL 8.4 - 10. 4 mg/dL [facility] Chloride [Moles/Vol] 99 mmol/L 98 - 10 7 mmol/L [facility] CO2 [Moles/Vol] 29 mmol/L 22 - 30 mmol/L [facility] Creatinine [Mass/Vol] 0.72 mg/dL Male: 0.66-1.25 mg/dL; Female: 0.52-1.04 mg/dL [facility] GFR/1.73 sq M.predicted MDRD (S/P/Bld) [Vol rate/Area] - PINF [facility] Comment on above: Calculation based on the Chronic Kidney Disease Epidemiology Collaboration (CKD-EPI) equation refit without adjustment for race Glucose [Mass/Vol] 71 mg/dL 70 - 100 mg/dL [facility] Interpretation and review of laboratory results Abnormal [facility] Potassium [Moles/Vol] 4.8 mmol/L 3.5 - 5.1 mmol/L [facility] Protein [Mass/Vol] 7.1 g/dL 6.3 - 8.2 g/dL [facility] Urea nitrogen [Mass/Vol] 17 mg/dL Male: 9-20 mg/dL; Female: 7-17 mg/dL [facility] Determination of erythrocyte mean corpuscular volume (MCV)Ordered By: Jared Guzman on 08-17-2023 MCV (RBC) [Entitic vol] 86.6 fL 81-99 [facility] Glucose (Bld) [Mass/Vol]Orde red By: Asuncion Buchanan on 08-17-2023 Glucose [Mass/Vol] 29 mg/dL Critically low 70 - 10 0 mg/dL [facility] Interpretation and review of laboratory results Abnormal [facility] Hematocrit Auto (Bld) [Volum e fraction]Ordered By: Jared Guzman on 08-17-2023 Hematocrit (Bld) [Volume fraction] 40.2 % 37-47 [facility] - Chemistry and C hemistry - challengeon 08-17-2023 Glucose [Mass/Vol] 154 mg/dL High 70 - 100 mg/dL [facility] Glucose [Mass/Vol] 154 mg/dL [facility] Glucose [Mass/Vol] 154 mg/dL High 70 - 100 mg/dL [facility] Glucose [Mass/Vol] mg/dL Low 70 - 100 mg/dL [facility] Comment on above: Caregiver Notified; Confirmation Drawn; Lipase [Catalytic activity/Vol] 62 U/L 23 - 300 U/L [facility] Lactate [Moles/Vol] 1.1 mmol/L 0.7 - 2. 0 mmol/L [facility] - Chemistry and C hemistry - challengeOrdered By: Jared Guzman on 08-17-2023 ALP [Catalytic activity/Vol] 156 U/L 45-117 [facility] ALT [Catalytic activity/Vol] 56 U/L 13-56 [facility] CO2 [Moles/Vol] 29.0 mmol/L 21.0-32.0 [facility] Globulin (S) [Mass/Vol] 3.7 g/dL 2.2-4.2 [facility] Urea nitrogen/Creatinine [Mass ratio] 20.6 mg/mg 10-20 [facility] - Hematology and Cell countsOrdered By: Jared Guzman on 08-17-2023 Erythrocyte distribution width (RBC) [Entitic vol] 44.6 fL 35.1-43.9 [facility] Erythrocyte distribution width (RBC) [Ratio] 14.0 % 11.6-14.6 [facility] MCH (RBC) [Entitic mass] 26.7 pg 27.0-32.0 [facility] Lipase [Catalytic activity/V ol]on 08-17-2023 Interpretation and review of laboratory results Normal [facility] MCHC Auto (RBC) [Mass/Vol]Or dered By: Jared Guzman on 08-17-2023 MCHC (RBC) [Mass/Vol] 30.8 g/dL 32-[address] [facility] No Panel Informationon 08-17 Interpretation and review of laboratory results Abnormal [facility] Performed by: [facility], [address] [place] [id number] CLIA ID: [id number] [facility] Interpretation and review of laboratory results Normal [facility] Interpretation and review of laboratory results Abnormal [facility] Performed by: [facility], [address] [place] [id number] CLIA ID: [id number] [facility] Interpretation and review of laboratory results Abnormal [facility] Performed by: [facility], [address] [place] [id number] CLIA ID: [id number] [facility] Interpretation and review of laboratory results Normal [facility] No Panel InformationOrdered By: Jared Guzman on 08-17-2023 Estimated GFR (MDRD) Amer 99 mL/min >60 [facility] Comment on above: GFR Calc Estimated GFR (MDRD) Non-Af Amer 81 mL/min >60 [facility] Comment on above: Non- GFR Calc Platelets bldOrdered By: Mike Guzman on 08-17-2023 Platelets (Bld) [#/Vol] 410 10*3/uL 150-450 [facility] Serum or plasma albumin mauricio urement (mass/volume)Ordered By: Jared Guzman on 08-17-2023 Albumin [Mass/Vol] 3.1 g/dL 3.2-5.0 [facility] Serum or plasma albumin/glob ulin mass ratioOrdered By: Jared Guzman on 08-17-2023 Albumin/Globulin [Mass ratio] 0.8 {ratio} 0.9-2.4 [facility] Serum or plasma calcium mauricio urement (mass/volume)Ordered By: Jared Guzman on 08-17-2023 Calcium [Mass/Vol] 9.1 mg/dL 8.5-10.1 [facility] Serum or plasma creatinine m easurement (mass/volume)Ordered By: Jared Guzman on 08-17-2023 Creatinine [Mass/Vol] 0.78 mg/dL 0.55-1.[address] [facility] Comment on above: The validity of the calculated GFR & GFRAA in patients over 70 years has not been determined. Clinical correlation is essential. Serum or plasma urea nitroge n measurement (mass/volume)Ordered By: Jared Guzman on 08-17-2023 Urea nitrogen [Mass/Vol] 16 mg/dL 7-18 [facility] Thin prep Papanicolaou smear with manual screeningOrdered By: Jared Guzman on 08-17-2023 Thin prep Papanicolaou smear with manual screening 16 U/L 15-37 [facility] Thin prep Papanicolaou smear with manual screening 3 5-15 [facility] Urinalysis complete panel (U )Ordered By: Silvia Bone on 08-17-2023 Bacteria LM.HPF (Urine sed) [#/Area] Negative Negative /HPF [facility] Bilirubin Ql (U) Negative Negative mg/dL [facility] Clarity (U) Clear Clear [facility] Color (U) Yellow Lt. Yellow [facility] Epithelial cells.squamous LM.HPF (Urine sed) [#/Area] 0-2 [facility] Glucose Ql (U) 300 mg/dL Abnormal Normal (<70) [facility] Hemoglobin Ql (U) 0.06 mg/dL Abnormal Negative [facility] Hyaline casts Auto (Urine sed) [#/Area] 0-2 Abnormal Negative /LPF [facility] Interpretation and review of laboratory results Abnormal [facility] Ketones (U) [Mass/Vol] Negative Negat bernard mg/dL [facility] Leukocyte esterase Test strip Ql (U) Negative Negative Kat/uL [facility] Mucus LM.HPF (Urine sed) [#/Area] Few Negative /LPF [facility] Nitrite Ql (U) Negative Negative [facility] pH (U) 6.0 [pH] 5.0 - 8.0 pH [facility] Protein (U) [Mass/Vol] 300 mg/dL Abnormal Negative [facility] RBC LM.HPF (Urine sed) [#/Area] 3-5 Abnormal [facility] Specific gravity (U) [Rel density] 1.040 High 1.005 - 1.030 [facility] Urobilinogen (U) [Mass/Vol] 2 mg/dL Abnormal Normal (0-1) [facility] WBC LM.HPF (Urine sed) [#/Area] 3-5 [facility] Basic metabolic 1998 panelon 08-08-2023 Anion gap [Moles/Vol] 5 mmol/L 3 - 13 mmol/L [facility] Calcium [Mass/Vol] 8.9 mg/dL 8.4 - 10. 4 mg/dL [facility] Chloride [Moles/Vol] 97 mmol/L Low 98 - 10 7 mmol/L [facility] CO2 [Moles/Vol] 27 mmol/L 22 - 30 mmol/L [facility] Creatinine [Mass/Vol] 0.49 mg/dL Male: 0.66-1.25 mg/dL; Female: 0.52-1.04 mg/dL [facility] GFR/1.73 sq M.predicted MDRD (S/P/Bld) [Vol rate/Area] - PINF [facility] Comment on above: Calculation based on the Chronic Kidney Disease Epidemiology Collaboration (CKD-EPI) equation refit without adjustment for race Glucose [Mass/Vol] 253 mg/dL High 70 - 100 mg/dL [facility] Potassium [Moles/Vol] 5.0 mmol/L 3.5 - 5.1 mmol/L [facility] Sodium [Moles/Vol] 130 mmol/L Low 135 - 145 mmol/L [facility] Urea nitrogen [Mass/Vol] 13 mg/dL Male: 9-20 mg/dL; Female: 7-17 mg/dL [facility] Beta Hydroxybutyrateon 08-08 Beta hydroxybutyrate [Mass/Vol] 8.44 mg/dL High 0.20 - 2.81 mg/dL [facility] Interpretation and review of laboratory results Abnormal [facility] CBC panel Auto (Bld)Ordered By: Alex Kwok on 08-08-2023 Erythrocyte distribution width (RBC) [Ratio] 15.3 % High 11.5 - 14.5 % [facility] Hematocrit (Bld) [Volume fraction] 36.2 % Male: 40.0-52.0 %; Female: 35.0-47.0 % [facility] Hemoglobin (Bld) [Mass/Vol] 12.0 g/dL 11.7 - 18.0 g/dL [facility] Interpretation and review of laboratory results Abnormal [facility] MCH (RBC) [Entitic mass] 27.3 pg 26.0 - 34.0 pg [facility] MCHC (RBC) [Mass/Vol] 33.3 % 32.0 - 36.0 % [facility] MCV (RBC) [Entitic vol] 81.9 fL 80.0 - 98.0 fL [facility] Platelet mean volume (Bld) [Entitic vol] 7.6 fL 7.4 - 12.4 fL [facility] Platelets (Bld) [#/Vol] 364 10*3/uL 140 - 440 10*3/uL [facility] RBC (Bld) [#/Vol] 4.42 10*6/uL Male: 4.40-5.90; Female: 3.80-5.20 [facility] WBC (Bld) [#/Vol] 9.7 10*3/uL 3.6 - 10.7 10*3/uL [facility] CT Abdomen and Pelvis W cont rast Erica 08-08-2023 ABDOMEN: Inflammatory fat stranding in the region of the left renal pelvis and along the left ureter. This is a nonspecific finding. Differential includes a recently passed stone versus an infectious process. No areas of nonenhancement are identified to suggest pyelonephritis. Correlation with urinalysis is recommended. Appendix not visualized however there are no inflammatory changes within the right lower quadrant. 7 mm nodule right lung base shows interval increase in size when dating back to 2021 where it measured 4 mm. PELVIS: No acute intrapelvic disease process. Report Dictated on Electronically Signed By: Chucho Stringer MD Electronically Signed Date/Time: 08/08/2023 8:43 AM EDT [employer] [facility] Patient Name: WILL ALVARADO : 1965 Exam Date/Time: 08/08/2023 08:23 Procedure: CT ABDOMEN PELVIS W CONTRAST Ordering Provider: KELLEY JOSEPH Reason For Exam: Abdominal pain, acute, nonlocalized CLINICAL HISTORY: Abdominal pain, acute, nonlocalized COMPARISON: CT abdomen pelvis dated 09/17/2020 and 11/22/2020 Technique: [address] images were obtained of the abdomen and pelvis after the uneventful IV administration of 75 mL of Isovue-300. Images were reformatted in coronal and sagittal projections. Dose reduction was employed using automatic exposure control. FINDINGS: Lung bases: 7 mm nodule right lung base shows interval increase in size when dating back to 2019. In 2019, this nodule measured 4 mm. Major organs: Liver, gallbladder, spleen, pancreas, adrenal glands, and right kidney are normal. There is inflammatory fat stranding surrounding the left renal pelvis and left ureter although there is no obstructing calculus identified. No hydronephrosis is present. The left kidney enhances homogeneously. Gastrointestinal: The bowel is of normal caliber throughout without evidence of wall thickening or obstruction. The appendix is not well visualized however there are no inflammatory changes within the right lower quadrant. Lymph nodes and Mesentery: No enlarged intra-abdominal lymph nodes or free fluid. Mesentery is normal with no free air. Vasculature: The abdominal aorta is normal in caliber without evidence of aneurysmal dilatation. Soft tissues and Osseous structures: No suspicious osseous lesions. Pelvis: Major organs: Rectum, sigmoid colon, bladder, and uterus are normal. Lymph nodes: No enlarged intrapelvic lymph nodes or free fluid. Soft tissues and Osseous structures: No acute fracture. No suspicious osseous lesions. [facility] Yvette Stringer MD - 08/08/2023 Patient Name: WILL JACINTO : 1965 [facility]#: [id number] Exam Date/Time: 08/08/2023 08:23 Procedure: CT ABDOMEN PELVIS W CONTRAST Ordering Provider: KELLEY JOSEPH Reason For Exam: Abdominal pain, acute, nonlocalized CLINICAL HISTORY: Abdominal pain, acute, nonlocalized COMPARISON: CT abdomen pelvis dated 09/17/2020 and 11/22/2020 Technique: [address] images were obtained of the abdomen and pelvis after the uneventful IV administration of 75 mL of Isovue-300. Images were reformatted in coronal and sagittal projections. Dose reduction was employed using automatic exposure control. FINDINGS: Lung bases: 7 mm nodule right lung base shows interval increase in size when dating back to 2019. In 2019, this nodule measured 4 mm. Major organs: Liver, gallbladder, spleen, pancreas, adrenal glands, and right kidney are normal. There is inflammatory fat stranding surrounding the left renal pelvis and left ureter although there is no obstructing calculus identified. No hydronephrosis is present. The left kidney enhances homogeneously. Gastrointestinal: The bowel is of normal caliber throughout without evidence of wall thickening or obstruction. The appendix is not well visualized however there are no inflammatory changes within the right lower quadrant. Lymph nodes and Mesentery: No enlarged intra-abdominal lymph nodes or free fluid. Mesentery is normal with no free air. Vasculature: The abdominal aorta is normal in caliber without evidence of aneurysmal dilatation. Soft tissues and Osseous structures: No suspicious osseous lesions. Pelvis: Major organs: Rectum, sigmoid colon, bladder, and uterus are normal. Lymph nodes: No enlarged intrapelvic lymph nodes or free fluid. Soft tissues and Osseous structures: No acute fracture. No suspicious osseous lesions. IMPRESSION: ABDOMEN: Inflammatory fat stranding in the region of the left renal pelvis and along the left ureter. This is a nonspecific finding. Differential includes a recently passed stone versus an infectious process. No areas of nonenhancement are identified to suggest pyelonephritis. Correlation with urinalysis is recommended. Appendix not visualized however there are no inflammatory changes within the right lower quadrant. 7 mm nodule right lung base shows interval increase in size when dating back to 2021 where it measured 4 mm. PELVIS: No acute intrapelvic disease process. Report Dictated on Electronically Signed By: Chucho Stringer MD Electronically Signed Date/Time: 08/08/2023 8:43 AM EDT [facility] Radiology Study observation (narrative) [facility] ECG 12 leadon 08-08-2023 Heart rate 111 /min bpm [facility] P [place] 48 degrees [facility] NM Interval 164 ms [facility] QRS [place] -40 degrees [facility] QRSD Interval 116 ms [facility] QT Interval 363 ms [facility] QTC Interval 494 ms [facility] T Wave [place] 54 degrees [facility] Sinus tachycardia Left anterior fascicular block Left ventricular hypertrophy Borderline prolonged QT interval Compared to ECG 06/29/2023 06:27:39 Electronically Signed On 08-08-2023 7:02:41 EDT by Gayle Trevizo Gayle Mercedes MD - 08/08/2023 IMPRESSION: Sinus tachycardia Left anterior fascicular block Left ventricular hypertrophy Borderline prolonged QT interval Compared to ECG 06/29/2023 06:27:39 Electronically Signed On 08-08-2023 7:02:41 EDT by Gayle Trevizo [facility] Hepatic function 2000 panelo n 08-08-2023 Albumin [Mass/Vol] 4.0 g/dL 3.5 - 5.0 g/dL [facility] ALP [Catalytic activity/Vol] 156 U/L High 38 - 126 U/L [facility] ALT [Catalytic activity/Vol] 39 U/L Male: 0-49 U/L; Female: 0-34 U/L [facility] AST [Catalytic activity/Vol] 30 U/L 15 - 46 U/L [facility] Bilirubin [Mass/Vol] 0.5 mg/dL 0.2 - 1 .3 mg/dL [facility] Bilirubin.conjugated [Mass/Vol] 0.0 mg/dL 0.0 - 0.3 mg/dL [facility] Protein [Mass/Vol] 7.3 g/dL 6.3 - 8.2 g/dL [facility] Lipaseon 08-08-2023 Lipase [Catalytic activity/Vol] 34 U/L 23 - 300 U/L [facility] Lipase [Catalytic activity/V ol]on 08-08-2023 Interpretation and review of laboratory results Normal [facility] No Panel Informationon 08-08 [facility] Interpretation and review of laboratory results Abnormal [facility] POCT glucose meteron 023 Glucose [Mass/Vol] 251 mg/dL High 70 - 100 mg/dL [facility] Interpretation and review of laboratory results Abnormal [facility] Performed by: [facility], [address] [place] [id number] CLIA ID: [id number] [facility] POCT venous blood gason Base excess Calc (BldV) [Moles/Vol] 0.0 mmol/L -3 - 3 mmol/L [facility] CO2 (BldV) [Partial pressure] 35.7 mm[Hg] Low [facility] CO2 [Moles/Vol] 24.9 mmol/L 24.0 - 28.0 mmol/L [facility] Comment on above: Performed by CLIA ID : [id number] [place], [place] ?Device: [id number] Dry Wall Plasterer ID: [id number] [facility] HCO3 (Bld) [Moles/Vol] 23.8 mmol/L 23.0 - 27.0 mmol/L [facility] Interpretation and review of laboratory results Abnormal [facility] Oxygen (BldV) [Partial pressure] 40.4 mm[Hg] [facility] Oxygen saturation in Venous blood 77.5 % 60.0 - 80.0 % [facility] pH (BldV) 7.432 [pH] High 7.330 - 7.430 pH [facility] Performed by: [facility], [address] [place] [id number] CLIA ID: [id number] [facility] Troponin I.cardiac [Mass/Vol ]on 08-08-2023 Interpretation and review of laboratory results Normal [facility] Patients with high levels of Biotin oral intake (ie >5 mg/day) may have falsely decreased Troponin levels. [facility] Troponin, with Serial Reflex on 08-08-2023 Troponin I.cardiac [Mass/Vol] ng/mL NINF - 0.034 ng/mL [facility] Urinalysis complete panel (U )Ordered By: Jackson Her on 08-08-2023 Bacteria LM.HPF (Urine sed) [#/Area] Few Abnormal Negative /HPF [facility] Bilirubin Ql (U) Negative Negative mg/dL [facility] Clarity (U) Clear Clear [facility] Color (U) Light Yellow Lt. Yellow [facility] Epithelial cells.squamous LM.HPF (Urine sed) [#/Area] 0-2 [facility] Glucose Ql (U) 150 mg/dL Abnormal Normal (<70) [facility] Hemoglobin Ql (U) 0.06 mg/dL Abnormal Negative [facility] Interpretation and review of laboratory results Abnormal [facility] Ketones (U) [Mass/Vol] 10 mg/dL Abnormal Negative [facility] Leukocyte clumps LM.HPF (Urine sed) [#/Area] Rare Abnormal Negative /HPF [facility] Leukocyte esterase Test strip Ql (U) 250 Abnormal Negative Kat/uL [facility] Nitrite Ql (U) Negative Negative [facility] Non-Squamous Epithalial Cells, Urine 0-2 Abnormal Negative /HPF [facility] pH (U) 6.0 [pH] 5.0 - 8.0 pH [facility] Protein (U) [Mass/Vol] 200 mg/dL Abnormal Negative [facility] RBC LM.HPF (Urine sed) [#/Area] 3-5 Abnormal [facility] Specific gravity (U) [Rel density] High 1.005 - 1.030 [facility] Urobilinogen (U) [Mass/Vol] Normal Normal (0-1) mg/dL [facility] WBC LM.HPF (Urine sed) [#/Area] 6-10 Abnormal [facility] XR Chest Single viewon 08-08 Lungs clear with no acute cardiopulmonary disease process Report Dictated on Electronically Signed By: Chucho Stringer MD Electronically Signed Date/Time: 08/08/2023 7:16 AM [facility] Patient Name: WILL ALVARADO : 1965 Exam Date/Time: 08/08/2023 07:22 Procedure: XR CHEST 1 VIEW Ordering Provider: KELLEY JOSEPH Reason For Exam: CHEST PAIN CLINICAL INDICATION: CHEST PAIN COMPARISON: 06/28/2023 TECHNIQUE: Single portable AP radiograph of the chest. FINDINGS: LUNGS/PLEURA:Clear with no acute infiltrate or effusion. No pneumothorax. The trachea is midline. MEDIASTINUM:Heart size and mediastinal contours are normal. VASCULARITY: Normal BONES:Unremarkable [facility] Yvette Stringer MD - 08/08/2023 [facility] 1965 [id number] Exam Date/Time: 08/08/2023 07:22 Procedure: XR CHEST 1 VIEW Ordering Provider: KELLEY JOSEPH Reason For Exam: CHEST PAIN CLINICAL INDICATION: CHEST PAIN COMPARISON: 06/28/2023 TECHNIQUE: Single portable AP radiograph of the chest. FINDINGS: LUNGS/PLEURA:Clear with no acute infiltrate or effusion. No pneumothorax. The trachea is midline. MEDIASTINUM:Heart size and mediastinal contours are normal. VASCULARITY: Normal BONES:Unremarkable IMPRESSION: Lungs clear with no acute cardiopulmonary disease process Report Dictated on Electronically Signed By: Chucho Stringer MD Electronically Signed Date/Time: 08/08/2023 7:16 AM EDT [facility] Radiology Study observation (narrative) [facility] XR Chest Single viewOrdered By: Yvette Stringer on 08-08-2023 [facility] Work Phone: Basophil percentageOrdered B y: Jared Guzman on 08-04-2023 Chloride [Moles/Vol] 107 mmol/L 98-107 [facility] Glucose [Mass/Vol] 140 mg/dL 74-106 [facility] Comment on above: Fasting Glucose resu lt greater than or equal to 126 mg/dL suggests DIABETES MELLITUS per A.D.A. criteria. Potassium [Moles/Vol] 4.7 mmol/L 3.5-5.[address] [facility] Sodium [Moles/Vol] 137 mmol/L 136-145 [facility] - Chemistry and C hemistry - challengeOrdered By: Jared Guzman on 08-04-2023 CO2 [Moles/Vol] 27.0 mmol/L 21.0-32.0 [facility] Urea nitrogen/Creatinine [Mass ratio] 29.5 mg/mg 10-20 [facility] No Panel InformationOrdered By: Jared Guzman on 08-04-2023 Estimated GFR (MDRD) Amer 85 mL/min >60 [facility] Comment on above: GFR Calc Estimated GFR (MDRD) Non-Af Amer 71 mL/min >60 [facility] Comment on above: Non- GFR Calc Serum or plasma calcium mauricio urement (mass/volume)Ordered By: Jared Guzman on 08-04-2023 Calcium [Mass/Vol] 8.6 mg/dL 8.5-10.1 [facility] Serum or plasma creatinine m easurement (mass/volume)Ordered By: Jared Guzman on 08-04-2023 Creatinine [Mass/Vol] 0.88 mg/dL 0.55-1.[address] [facility] Comment on above: The validity of the calculated GFR & GFRAA in patients over 70 years has not been determined. Clinical correlation is essential. Serum or plasma urea nitroge n measurement (mass/volume)Ordered By: Jared Guzman on 08-04-2023 Urea nitrogen [Mass/Vol] 26 mg/dL 7-18 [facility] Thin prep Papanicolaou smear with manual screeningOrdered By: Jared Guzman on 08-04-2023 Thin prep Papanicolaou smear with manual screening 3 5-15 [facility] Basophil percentageOrdered B y: Jared Guzman on 08-02-2023 Chloride [Moles/Vol] 102 mmol/L 98-107 [facility] Glucose [Mass/Vol] 393 mg/dL 74-106 [facility] Comment on above: Glucose result great er than or equal to 200 mg/dLsuggests DIABETES MELLITUS per A.D.A. criteria. Potassium [Moles/Vol] 6.1 mmol/L 3.5-5.[address] [facility] Sodium [Moles/Vol] 131 mmol/L 136-145 [facility] WBC (Bld) [#/Vol] 6.7 10*3/uL 4.4-11.0 [facility] Blood erythrocytes count (nu mber/volume)Ordered By: Jared Guzman on 08-02-2023 RBC (Bld) [#/Vol] 3.97 10*6/uL 4.2-5.4 [facility] Blood hemoglobin measurement (mass/volume)Ordered By: Jared Guzman on 08-02-2023 Hemoglobin (Bld) [Mass/Vol] 10.9 g/dL 12.0-15.0 [facility] Blood platelet mean volumeOr dered By: Jared Guzman on 08-02-2023 Platelet mean volume (Bld) [Entitic vol] 10.3 fL 6.2-12.0 [facility] Determination of erythrocyte mean corpuscular volume (MCV)Ordered By: Jared Guzman on 08-02-2023 MCV (RBC) [Entitic vol] 88.9 fL 81-99 [facility] Hematocrit Auto (Bld) [Volum e fraction]Ordered By: Jared Guzman on 08-02-2023 Hematocrit (Bld) [Volume fraction] 35.3 % 37-47 [facility] - Chemistry and C hemistry - challengeOrdered By: Jared Guzman on 08-02-2023 CO2 [Moles/Vol] 22.0 mmol/L 21.0-32.0 [facility] Urea nitrogen/Creatinine [Mass ratio] 26.2 mg/mg 10-20 [facility] - Hematology and Cell countsOrdered By: Jared Guzman on 08-02-2023 Erythrocyte distribution width (RBC) [Entitic vol] 48.3 fL 35.1-43.9 [facility] Erythrocyte distribution width (RBC) [Ratio] 14.7 % 11.6-14.6 [facility] MCH (RBC) [Entitic mass] 27.5 pg 27.0-32.0 [facility] MCHC Auto (RBC) [Mass/Vol]Or dered By: Jared Guzman on 08-02-2023 MCHC (RBC) [Mass/Vol] 30.9 g/dL 32-[address] [facility] No Panel InformationOrdered By: Jared Guzman on 08-02-2023 Estimated GFR (MDRD) Amer 86 mL/min >60 [facility] Comment on above: GFR Calc Estimated GFR (MDRD) Non-Af Amer 71 mL/min >60 [facility] Comment on above: Non- GFR Calc Platelets bldOrdered By: Mike Guzman on 08-02-2023 Platelets (Bld) [#/Vol] 342 10*3/uL 150-450 [facility] Serum or plasma calcium mauricio urement (mass/volume)Ordered By: Jared Guzman on 08-02-2023 Calcium [Mass/Vol] 8.8 mg/dL 8.5-10.1 [facility] Serum or plasma creatinine m easurement (mass/volume)Ordered By: Jared Guzman on 08-02-2023 Creatinine [Mass/Vol] 0.88 mg/dL 0.55-1.[address] [facility] Comment on above: The validity of the calculated GFR & GFRAA in patients over 70 years has not been determined. Clinical correlation is essential. Serum or plasma urea nitroge n measurement (mass/volume)Ordered By: Jared Guzman on 08-02-2023 Urea nitrogen [Mass/Vol] 23 mg/dL 7-18 [facility] Thin prep Papanicolaou smear with manual screeningOrdered By: Jared Guzman on 08-02-2023 Thin prep Papanicolaou smear with manual screening 7 5-15 [facility] Basophil percentageOrdered B y: Jared Guzman on 07-05-2023 Bilirubin [Mass/Vol] 0.30 mg/dL 0.20-1.00 [facility] Comment on above: For patients on eltr ombopag therapy, use of Dimension [place] TBIL is not recommended..Previous reported result: 0.30 mg/dLEdited by: PAULINE on 07/06/23:45 AMENDED REPORT 07/06/23944 T BILI previously reported as: 0.30 mg/dL For patients on eltrombopag therapy, use of Dimension [place] TBIL is not recommended. Chloride [Moles/Vol] 108 mmol/L 98-107 [facility] Comment on above: .Previous reported r esult: 108 mmol/LEdited by: PAULINE on 07/06/23:0945 AMENDED REPORT 07/06/23944 CL previously reported as: 108 H mmol/L Glucose [Mass/Vol] 149 mg/dL 74-106 [facility] Comment on above: Fasting Glucose resu lt greater than or equal to 126 mg/dL suggests DIABETES MELLITUS per A.D.A. criteria..Previous reported result: 149 mg/dLEdited by: PAULINE on 07/06/23:0943 AMENDED REPORT 07/06/23942 GLU previously reported as: 149 H mg/dL Fasting Glucose result greater than or equal to 126 mg/dL suggests DIABETES MELLITUS per A.D.A. criteria. Potassium [Moles/Vol] 4.4 mmol/L 3.5-5.[address] [facility] Comment on above: .Previous reported r esult: 4.4 mmol/LEdited by: PAULINE on 07/06/23:0945 AMENDED REPORT 07/06/23944 K previously reported as: 4.4 mmol/L Protein [Mass/Vol] 6.3 g/dL 6.4-8.2 [facility] Comment on above: .Previous reported r esult: 6.3 g/dLEdited by: PAULINE on 07/06/23:0944 AMENDED REPORT 07/06/23943 T PROT previously reported as: 6.3 L g/dL Sodium [Moles/Vol] 138 mmol/L 136-145 [facility] Comment on above: .Previous reported r esult: 138 mmol/LEdited by: PAULINE on 07/06/23:0945 AMENDED REPORT 07/06/23944 NA previously reported as: 138 mmol/L WBC (Bld) [#/Vol] 7.0 10*3/uL 4.4-11.0 [facility] Comment on above: .Previous reported r esult: 7.0 K/ol8Dvbeiw by: PAULINE on 07/06/23:0941 AMENDED REPORT 07/06/23940 WBC previously reported as: 7.0 K/mm3 Blood erythrocytes count (nu mber/volume)Ordered By: Jared Guzman on 07-05-2023 RBC (Bld) [#/Vol] 4.01 10*6/uL 4.2-5.4 [facility] Comment on above: .Previous reported r esult: 4.01 M/rx5[place] by: PAULINE on 07/06/23:0941 AMENDED REPORT 07/06/23940 RBC previously reported as: 4.01 L M/mm3 Blood hemoglobin measurement (mass/volume)Ordered By: Jared Guzman on 07-05-2023 Hemoglobin (Bld) [Mass/Vol] 10.9 g/dL 12.0-15.0 [facility] Comment on above: .Previous reported r esult: 10.9 g/dLEdited by: PAULINE on 07/06/23:0941 AMENDED REPORT 07/06/23940 HGB previously reported as: 10.9 L g/dL Blood platelet mean volumeOr dered By: Jared Guzman on 07-05-2023 Platelet mean volume (Bld) [Entitic vol] 10.1 fL 6.2-12.0 [facility] Comment on above: .Previous reported r esult: 10.1 flEdited by: PAULINE on 07/06/23:0942 AMENDED REPORT 07/06/23941 MPV previously reported as: 10.1 fl Determination of erythrocyte mean corpuscular volume (MCV)Ordered By: Jared Guzman on 07-05-2023 MCV (RBC) [Entitic vol] 89.3 fL 81-99 [facility] Comment on above: .Previous reported r esult: 89.3 fLEdited by: PAULINE on 07/06/23:0942 AMENDED REPORT 07/06/23941 MCV previously reported as: 89.3 fL Hematocrit Auto (Bld) [Volum e fraction]Ordered By: Jared Guzman on 07-05-2023 Hematocrit (Bld) [Volume fraction] 35.8 % 37-47 [facility] Comment on above: .Previous reported r esult: 35.8 %Edited by: PAULINE on 07/06/23:0942 AMENDED REPORT 07/06/23941 HCT previously reported as: 35.8 L % Laboratory - Chemistry and C hemistry - challengeOrdered By: Jared Guzman on 07-05-2023 ALP [Catalytic activity/Vol] 155 U/L 45-117 [facility] Comment on above: ..Previous reported result: 155 U/LEdited by: PAULINE on 07/06/23:0945 AMENDED REPORT 07/06/2345 ALK P previously reported as: 155 H U/L ALT [Catalytic activity/Vol] 43 U/L 13-56 [facility] Comment on above: .Previous reported r esult: 43 U/LEdited by: PAULINE on 07/06/23:0945 AMENDED REPORT 07/06/2345 ALT previously reported as: 43 U/L CO2 [Moles/Vol] 26.0 mmol/L 21.0-32.0 [facility] Comment on above: .Previous reported r esult: 26.0 mmol/LEdited by: PAULINE on 07/06/23:0946 AMENDED REPORT 07/06/23945 CO2 previously reported as: 26.0 mmol/L Globulin (S) [Mass/Vol] 3.6 g/dL 2.2-4.2 [facility] Comment on above: .Previous reported r esult: 3.6 g/dLEdited by: PAULINE on 07/06/23:0944 AMENDED REPORT 07/06/2344 GLOB previously reported as: 3.6 g/dL Urea nitrogen/Creatinine [Mass ratio] 23.7 mg/mg 10- [facility] Comment on above: .Previous reported r esult: 23.5 RATIOEdited by: PAULINE on 07/06/23:0943 AMENDED REPORT 07/06/2343 BUN/CRE previously reported as: 23.5 H RATIO Laboratory - Hematology and Cell countsOrdered By: Jared Guzman on 07-05-2023 Erythrocyte distribution width (RBC) [Entitic vol] 47.5 fL 35.1-43.9 [facility] Comment on above: .Previous reported r esult: 47.5 flEdited by: PAULINE on 07/06/23:0942 AMENDED REPORT 07/06/2342 RDW SD previously reported as: 47.5 H fl Erythrocyte distribution width (RBC) [Ratio] 14.5 % 11.6-14.6 [facility] Comment on above: .Previous reported r esult: 14.5 %Edited by: PAULINE on 07/06/23:0942 AMENDED REPORT 07/06/23941 RDW CV previously reported as: 14.5 % MCH (RBC) [Entitic mass] 27.2 pg 27.0-32.0 [facility] Comment on above: .Previous reported r esult: 27.2 pgEdited by: PAULINE on 07/06/23:0942 AMENDED REPORT 07/06/23941 MCH previously reported as: 27.2 pg MCHC Auto (RBC) [Mass/Vol]Or dered By: Jared Guzman on 07-05-2023 MCHC (RBC) [Mass/Vol] 30.4 g/dL 32-[address] [facility] Comment on above: .Previous reported r esult: 30.4 g/dLEdited by: PAULINE on 07/06/23:0942 AMENDED REPORT 07/06/23941 MCHC previously reported as: 30.4 L g/dL No Panel InformationOrdered By: Jared Guzman on 07-05-2023 Estimated GFR (MDRD) Amer 137 mL/min >60 [facility] Comment on above: GFR Calc.Previous reported result: 135 mL/minEdited by: PAULINE on 07/06/23:0943 AMENDED REPORT 07/06/23942 EST GFR - AA previously reported as: 135 mL/min GFR Calc Estimated GFR (MDRD) Non-Af Amer 113 mL/min >60 [facility] Comment on above: Non- GFR Calc.Previous reported result: 112 mL/minEdited by: PAULINE on 07/06/23:0943 AMENDED REPORT 07/06/23942 EST GFR previously reported as: 112 mL/min Non- GFR Calc Platelets bldOrdered By: Mike Guzman on 07-05-2023 Platelets (Bld) [#/Vol] 352 10*3/uL 150-450 [facility] Comment on above: .Previous reported r esult: 352 K/sn6Xmzmhs by: PAULINE on 07/06/23:0942 AMENDED REPORT 07/06/23941 PLT previously reported as: 352 K/mm3 Serum or plasma albumin mauricio urement (mass/volume)Ordered By: Jared Guzman on 07-05-2023 Albumin [Mass/Vol] 2.7 g/dL 3.2-5.0 [facility] Comment on above: .Previous reported r esult: 2.7 g/dLEdited by: PAULINE on 07/06/23:0944 AMENDED REPORT 07/06/23943 ALB previously reported as: 2.7 L g/dL Serum or plasma albumin/glob ulin mass ratioOrdered By: Jared Guzman on 07-05-2023 Albumin/Globulin [Mass ratio] 0.8 {ratio} 0.9-2.4 [facility] Comment on above: .Previous reported r esult: 0.8 RATIOEdited by: PAULINE on 07/06/23:0944 AMENDED REPORT 07/06/23943 A/G previously reported as: 0.8 L RATIO Serum or plasma calcium mauricio urement (mass/volume)Ordered By: Jared Guzman on 07-05-2023 Calcium [Mass/Vol] 8.8 mg/dL 8.5-10.1 [facility] Comment on above: .Previous reported r esult: 8.8 mg/dLEdited by: PAULINE on 07/06/23:0944 AMENDED REPORT 07/06/23943 CA previously reported as: 8.8 mg/dL Serum or plasma creatinine m easurement (mass/volume)Ordered By: Jared Guzman on 07-05-2023 Creatinine [Mass/Vol] 0.76 mg/dL 0.55-1.[address] [facility] Comment on above: The validity of the calculated GFR & GFRAA in patients over 70 years has not been determined. Clinical correlation is essential..Previous reported result: 0.76 mg/dLEdited by: PAULINE on 07/06/23:0943 AMENDED REPORT 07/06/23942 CREAT,SERUM previously reported as: 0.76 mg/dL The validity of the calculated GFR & GFRAA in patients over 70 years has not been determined. Clinical correlation is essential. Serum or plasma urea nitroge n measurement (mass/volume)Ordered By: Jared Guzman on 07-05-2023 Urea nitrogen [Mass/Vol] 18 mg/dL 7-18 [facility] Comment on above: .Previous reported r esult: 18 mg/dLEdited by: PAULINE on 07/06/23:0943 AMENDED REPORT 07/06/23942 BUN previously reported as: 18 mg/dL Thin prep Papanicolaou smear with manual screeningOrdered By: Jared Guzman on 07-05-2023 Thin prep Papanicolaou smear with manual screening 15 U/L 15-37 [facility] Comment on above: .Previous reported r esult: 15 U/LEdited by: PAULINE on 07/06/23:0945 AMENDED REPORT 07/06/2345 AST previously reported as: 15 U/L Thin prep Papanicolaou smear with manual screening 4 5-15 [facility] Comment on above: .Previous reported r esult: 4 Edited by: PAULINE on 07/06/23:0946 AMENDED REPORT 07/06/2346 GAP previously reported as: 4 L Laboratory - Chemistry and C hemistry - challengeon 07-01-2023 Glucose [Mass/Vol] 391 mg/dL High 70 - 100 mg/dL [facility] Glucose [Mass/Vol] 242 mg/dL High 70 - 100 mg/dL [facility] No Panel Informationon 07-01 Interpretation and review of laboratory results Abnormal [facility] Performed by: [facility], [address] [facility] [address] CLIA ID: [id number] [facility] Interpretation and review of laboratory results Abnormal [facility] Performed by: [facility], [address] [facility] [address] CLIA ID: [id number] [facility] Laboratory - Chemistry and C hemistry - challengeon 06-30-2023 Glucose [Mass/Vol] 101 mg/dL High 70 - 100 mg/dL [facility] Glucose [Mass/Vol] 131 mg/dL High 70 - 100 mg/dL [facility] Glucose [Mass/Vol] 251 mg/dL High 70 - 100 mg/dL [facility] Glucose [Mass/Vol] 317 mg/dL High 70 - 100 mg/dL [employer] No Panel Informationon 06-30 Interpretation and review of laboratory results Abnormal [facility] Performed by: [facility], [address] [facility] [address] CLIA ID: [id number] [facility] Interpretation and review of laboratory results Abnormal [facility] Performed by: [facility], [address] [facility] [address] CLIA ID: [id number] [facility] Art Benavidez M D - 06/30/2023 IMPRESSION: Sinus rhythm Abnormal R-wave progression, late transition Left ventricular hypertrophy Electronically Signed On 06-30-2023 12:43:24 EDT by Art Benavidez [facility] Interpretation and review of laboratory results Abnormal [employer] Performed by: [facility], [address] [facility] [address] CLIA ID: [id number] [facility] Interpretation and review of laboratory results Abnormal [facility] Performed by: [facility], [address] [facility] [address] CLIA ID: [id number] [facility] [employer] [facility] No Panel InformationOrdered By: Art Benavidez on 06-30-2023 P [place] 37 degrees [employer] Work Phone: NM Interval 166 ms [employer] Work Phone: QRS [place] -31 degrees [employer] Work Phone: QRSD Interval 112 ms [employer] Work Phone: QT Interval 413 ms [employer] Work Phone: QTC Interval 466 ms [employer] Work Phone: T Wave [place] 22 degrees [employer] Work Phone: [employer] Work Phone: Vital signsOrdered By: Laron Benavidez on 06-30-2023 Heart rate 76 /min bpm [employer] Work Phone: CBC panel Auto (Bld)Ordered By: Alex Kwok on 06-29-2023 Erythrocyte distribution width (RBC) [Ratio] 15.3 % High 11.5 - 14.5 % [facility] Hematocrit (Bld) [Volume fraction] 32.6 % [facility] Hemoglobin (Bld) [Mass/Vol] 10.8 g/dL Low 11.7 - 18.0 g/dL [facility] Interpretation and review of laboratory results Abnormal [facility] MCH (RBC) [Entitic mass] 27.5 pg 26.0 - 34.0 pg [facility] MCHC (RBC) [Mass/Vol] 33.2 % 32.0 - 36.0 % [facility] MCV (RBC) [Entitic vol] 82.9 fL 80.0 - 98.0 fL [facility] Platelet mean volume (Bld) [Entitic vol] 7.7 fL 7.4 - 12.4 fL [facility] Platelets (Bld) [#/Vol] 361 10*3/uL 140 - 440 10*3/uL [facility] RBC (Bld) [#/Vol] 3.94 10*6/uL [facility] WBC (Bld) [#/Vol] 9.2 10*3/uL 3.6 - 10.7 10*3/uL [facility] Comprehensive metabolic 1998 panelon 06-29-2023 Albumin [Mass/Vol] 3.4 g/dL Low 3.5 - 5.0 g/dL [facility] ALP [Catalytic activity/Vol] 121 U/L 38 - 126 U/L [facility] ALT [Catalytic activity/Vol] 41 U/L [facility] Anion gap [Moles/Vol] 6 mmol/L 3 - 13 mmol/L [facility] AST [Catalytic activity/Vol] 32 U/L 15 - 46 U/L [facility] Bilirubin [Mass/Vol] 0.3 mg/dL 0.2 - 1 .3 mg/dL [facility] Calcium [Mass/Vol] 8.3 mg/dL Low 8.4 - 10. 4 mg/dL [facility] Chloride [Moles/Vol] 103 mmol/L 98 - 10 7 mmol/L [facility] CO2 [Moles/Vol] 27 mmol/L 22 - 30 mmol/L [facility] Creatinine [Mass/Vol] 0.79 mg/dL [facility] GFR/1.73 sq M.predicted MDRD (S/P/Bld) [Vol rate/Area] 87.9 mL/min/{1.73_m2} - PINF [facility] Comment on above: Calculation based on the Chronic Kidney Disease Epidemiology Collaboration (CKD-EPI) equation refit without adjustment for race Glucose [Mass/Vol] 193 mg/dL High 70 - 100 mg/dL [facility] Interpretation and review of laboratory results Abnormal [facility] Potassium [Moles/Vol] 5.0 mmol/L 3.5 - 5.1 mmol/L [facility] Protein [Mass/Vol] 6.3 g/dL 6.3 - 8.2 g/dL [facility] Sodium [Moles/Vol] 136 mmol/L 135 - 145 mmol/L [facility] Urea nitrogen [Mass/Vol] 23 mg/dL [facility] Laboratory - Chemistry and C hemistry - challengeon 06-29-2023 Glucose [Mass/Vol] 180 mg/dL High 70 - 100 mg/dL [facility] Glucose [Mass/Vol] 338 mg/dL High 70 - 100 mg/dL [facility] Glucose [Mass/Vol] 244 mg/dL High 70 - 100 mg/dL [facility] Glucose [Mass/Vol] 234 mg/dL High 70 - 100 mg/dL [facility] No Panel Informationon 06-29 Interpretation and review of laboratory results Abnormal [facility] Performed by: [facility], [address] [place] [address] CLIA ID: [id number] [facility] Interpretation and review of laboratory results Abnormal [facility] Performed by: [facility], [address] [place] [address] CLIA ID: [id number] [facility] Interpretation and review of laboratory results Abnormal [facility] Performed by: [facility], [address] [place] [id number] CLIA ID: [id number] [facility] Interpretation and review of laboratory results Abnormal [facility] Performed by: [facility], [address] [place] [address] CLIA ID: [id number] [facility] Basic metabolic 1998 panelon 06-28-2023 Anion gap [Moles/Vol] 7 mmol/L 3 - 13 mmol/L [facility] Calcium [Mass/Vol] 9.1 mg/dL 8.4 - 10. 4 mg/dL [facility] Chloride [Moles/Vol] 102 mmol/L 98 - 10 7 mmol/L [facility] CO2 [Moles/Vol] 24 mmol/L 22 - 30 mmol/L [facility] Creatinine [Mass/Vol] 0.64 mg/dL [facility] GFR/1.73 sq M.predicted MDRD (S/P/Bld) [Vol rate/Area] - PINF [facility] Comment on above: Calculation based on the Chronic Kidney Disease Epidemiology Collaboration (CKD-EPI) equation refit without adjustment for race Glucose [Mass/Vol] 194 mg/dL High 70 - 100 mg/dL [facility] Interpretation and review of laboratory results Abnormal [facility] Potassium [Moles/Vol] 5.0 mmol/L 3.5 - 5.1 mmol/L [facility] Sodium [Moles/Vol] 133 mmol/L Low 135 - 145 mmol/L [facility] Urea nitrogen [Mass/Vol] 20 mg/dL [facility] CBC W Auto Differential pane l (Bld)Ordered By: Joel Houston on 06-28-2023 Basophils (Bld) [#/Vol] 0.1 10*3/uL 0.0 - 0.2 10*3/uL [facility] Basophils/100 WBC (Bld) 0.6 % 0.0 - 2.0 % [facility] Eosinophils (Bld) [#/Vol] 0.0 10*3/uL 0.0 - 0.5 10*3/uL [facility] Eosinophils/100 WBC (Bld) 0.1 % Low 1.0 - 6.0 % [facility] Erythrocyte distribution width (RBC) [Ratio] 15.4 % High 11.5 - 14.5 % [facility] Hematocrit (Bld) [Volume fraction] 35.1 % [facility] Hemoglobin (Bld) [Mass/Vol] 11.6 g/dL Low 11.7 - 18.0 g/dL [facility] Interpretation and review of laboratory results Abnormal [facility] Lymphocytes (Bld) [#/Vol] 0.6 10*3/uL Low 1.0 - 4.3 10*3/uL [facility] Lymphocytes/100 WBC (Bld) 5.4 % Low 20.0 - 40.0 % [facility] MCH (RBC) [Entitic mass] 27.3 pg 26.0 - 34.0 pg [facility] MCHC (RBC) [Mass/Vol] 33.2 % 32.0 - 36.0 % [facility] MCV (RBC) [Entitic vol] 82.3 fL 80.0 - 98.0 fL [facility] Monocytes (Bld) [#/Vol] 0.4 10*3/uL 0.0 - 0.8 10*3/uL [facility] Monocytes/100 WBC (Bld) 3.6 % 2.0 - 10.0 % [facility] Neutrophils (Bld) [#/Vol] 10.6 10*3/uL High 1.8 - 7.0 10*3/uL [facility] Neutrophils/100 WBC (Bld) 90.3 % High 40.0 - 80.0 % [facility] Nucleated RBC/100 WBC (Bld) [Ratio] 0.0 % [facility] Platelet mean volume (Bld) [Entitic vol] 7.9 fL 7.4 - 12.4 fL [facility] Platelets (Bld) [#/Vol] 384 10*3/uL 140 - 440 10*3/uL [facility] RBC (Bld) [#/Vol] 4.26 10*6/uL [facility] WBC (Bld) [#/Vol] 11.8 10*3/uL High 3.6 - 10.7 10*3/uL [facility] CTA Chest vessels WO and W c ontrast Erica 06-28-2023 [facility] 1965 [id number] Exam Date/Time: 06/28/2023 03:49 Procedure: CT CHEST ANGIOGRAM W AND/OR WO IV CONTRAST Ordering Provider: MUSTAFA KATHRYN Reason For Exam: CP, history of DVT not on anticoagulation, 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 COMPARISON: None Technique: [address] images were obtained of the chest after the uneventful IV administration of 75 mL of Isovue-370. Image acquisition was timed for maximal opacification of the pulmonary arteries. Images were reformatted in coronal and sagittal projections. 3D reformats were generated concurrently by myself on a separate workstation to better visualize the gross vascular anatomy. Dose reduction was employed using automatic exposure control. FINDINGS: Pulmonary arteries: There is very suboptimal opacification of the pulmonary arteries. This study is essentially nondiagnostic for evaluation of segmental and subsegmental pulmonary emboli. Given these limitations, no large central filling defects are identified. Lungs: 7 mm nodule anterior lateral right middle lobe (4:139). No areas of consolidation. The tracheobronchial tree remains patent. Pleura: No pleural effusion Heart/Great vessels: The heart is normal in size with no pericardial effusion. The aorta and pulmonary arteries are normal in caliber. Mediastinum/Peggy: There are no enlarged mediastinal, hilar, or axillary lymph nodes. Thyroid and Esophagus: Normal Visualized Upper Abdomen: Normal Chest wall/Lower neck: Normal Bones: Multilevel flowing osteophytes consistent with DISH. [facility] Yvette Stringer MD - 06/28/2023 [facility] 1965 [id number] Exam Date/Time: 06/28/2023 03:49 Procedure: CT CHEST ANGIOGRAM W AND/OR WO IV CONTRAST Ordering Provider: MUSTAFA KATHRYN Reason For Exam: CP, history of DVT not on anticoagulation, 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 COMPARISON: None Technique: [address] images were obtained of the chest after the uneventful IV administration of 75 mL of Isovue-370. Image acquisition was timed for maximal opacification of the pulmonary arteries. Images were reformatted in coronal and sagittal projections. 3D reformats were generated concurrently by myself on a separate workstation to better visualize the gross vascular anatomy. Dose reduction was employed using automatic exposure control. FINDINGS: Pulmonary arteries: There is very suboptimal opacification of the pulmonary arteries. This study is essentially nondiagnostic for evaluation of segmental and subsegmental pulmonary emboli. Given these limitations, no large central filling defects are identified. Lungs: 7 mm nodule anterior lateral right middle lobe (4:139). No areas of consolidation. The tracheobronchial tree remains patent. Pleura: No pleural effusion Heart/Great vessels: The heart is normal in size with no pericardial effusion. The aorta and pulmonary arteries are normal in caliber. Mediastinum/Peggy: There are no enlarged mediastinal, hilar, or axillary lymph nodes. Thyroid and Esophagus: Normal Visualized Upper Abdomen: Normal Chest wall/Lower neck: Normal Bones: Multilevel flowing osteophytes consistent with DISH. IMPRESSION: Suboptimal opacification of the pulmonary arteries. This study is nondiagnostic for evaluation of segmental and subsegmental pulmonary embolus. Given these limitations, no large central filling defects identified. No areas of consolidation or effusion. 7 mm nodule right middle lobe. There are no prior studies for comparison. Per the 2017 [employer] society guidelines for incidentally discovered solitary pulmonary nodule (6-8mm): LOW RISK PATIENT: repeat scan in 6 to 12 [address], then [address] in 18-24 months HIGH RISK PATIENT: repeat CT scan at 6-[address] in 18-24 months. 2017 - UPDATED [employer] SOC[employer]ET[employer] GUIDELINES FOR MANAGEMENT OF SMALL PULMONARY NODULES DETECTED ON CT Note: Recommendations do not apply for lung cancer screening, patients with immunosuppression or with known cancer. Dimensions are average of long and short axis rounded to the millimeter SOLITARY NODULE: LOW RISK PATIENT <6mm - No follow up 6-8mm - 6-12 months, then consider 18-24 months >8mm - PET/CT, Bx or followup in 3 months SOLITARY NODULE: HIGH RISK PATIENT <6mm - Optional 6-12 months (suspicious morphology or upper lobe) 6-8mm - 6-12 months, then 18-24 months >8mm - PET/CT, Bx or followup in 3 months MULTIPLE NODULES: LOW RISK PATIENT (Use most suspicious nodule to manage guidelines) All <6mm - No follow up Any >6mm - 3-6 months, then consider 18-24 months MULTIPLE NODULES: HIGH RISK PATIENT (Use most suspicious nodule to manage guidelines) All <6mm - No follow up Any >6mm - 3-6 months, then 18-24 months SUBSOLID NODULE: SINGLE GROUND GLASS OPACITY <6mm - No follow up 6mm or greater - 6-12 months, then every 2 years until 5 years SUBSOLID NODULE: PART SOLID <6mm - No follow up 6mm or greater - 3-6 months, then if solid component <6mm and unchanged every year until 5 years MULTIPLE SUBSOLID NODULES: All <6mm - 3-6 months, then if stable 24 and 48 months 6mm or greater - 3-6 months, subsequent management based upon most suspicious nodule Report Dictated on Electronically Signed By: Chucho Stringer MD Electronically Signed Date/Time: 06/28/2023 4:37 AM EDT [facility] Radiology Study observation (narrative) [facility] - Chemistry and C hemistry - challengeon 06-28-2023 Glucose [Mass/Vol] 223 mg/dL High 70 - 100 mg/dL [facility] Glucose [Mass/Vol] 270 mg/dL High 70 - 100 mg/dL [facility] Troponin I.cardiac [Mass/Vol] ng/mL 0.000 - 0.034 ng/mL [facility] Glucose [Mass/Vol] 253 mg/dL High 70 - 100 mg/dL [facility] Glucose [Mass/Vol] 247 mg/dL High 70 - 100 mg/dL [facility] Troponin I.cardiac [Mass/Vol] ng/mL 0.000 - 0.034 ng/mL [facility] [facility] Natriuretic peptide B [Mass/ Vol]on 06-28-2023 Interpretation and review of laboratory results Normal [facility] Natriuretic peptide B (Bld) [Mass/Vol] 150 pg/mL <20 - 300 [facility] No Panel Informationon 06-28 Interpretation and review of laboratory results Abnormal [facility]formed by: [facility], [address] [place] [id number] CLIA ID: [id number] [facility] Interpretation and review of laboratory results Abnormal [facility] Performed by: [facility], [address] [place] [id number] CLIA ID: [id number] [facility] Interpretation and review of laboratory results Abnormal [facility] Performed by: [facility], [address] [place] [id number] CLIA ID: [id number] [facility] Interpretation and review of laboratory results Abnormal [facility] Performed by: [facility], [address] [place] [id number] CLIA ID: [id number] [facility] P [place] 44 degrees [facility] NM Interval 180 ms [facility] QRS [place] -37 degrees [facility] QRSD Interval 115 ms [facility] QT Interval 364 ms [facility] QTC Interval 481 ms [facility] T Wave [place] 53 degrees [facility] Sinus tachycardia Nonspecific IVCD with LAD Left ventricular hypertrophy Minimal ST elevation, anterolateral leads Electronically Signed On 06-28-2023 5:20:13 EDT by Rosaura Rosa DO - 06/28/2023 IMPRESSION: Sinus tachycardia Nonspecific IVCD with LAD Left ventricular hypertrophy Minimal ST elevation, anterolateral leads Electronically Signed On 06-28-2023 5:20:13 EDT by Rosaura Mustafa [facility] Troponin I.cardiac [Mass/Vol ]on 06-28-2023 Interpretation and review of laboratory results Normal [facility] Patients with high levels of Biotin oral intake (ie >5 mg/day) may have falsely decreased Troponin levels. [facility] Interpretation and review of laboratory results Normal [facility] Patients with high levels of Biotin oral intake (ie >5 mg/day) may have falsely decreased Troponin levels. [facility] Vital signson 06-28-2023 Heart rate 105 /min bpm [facility] XR Chest Single viewon 06-28 Low lung volumes. No acute infiltrate or effusion. Report Dictated on Electronically Signed By: Chucho Stringer MD Electronically Signed Date/Time: 06/28/2023 3:08 AM EDT [facility] [employer] [facility]AD[facility] 1965 [id number] Exam Date/Time: 06/28/2023 03:08 Procedure: XR CHEST 1 VIEW Ordering Provider: MUSTAFA KATHRYN Reason For Exam: CHEST PAIN CLINICAL INDICATION: CHEST PAIN COMPARISON: 12/08/2020 TECHNIQUE: Single portable AP radiograph of the chest. FINDINGS: LUNGS/PLEURA:Lung volumes are low. No areas of consolidation or effusion. Trachea is midline. No pneumothorax. MEDIASTINUM:Heart size and mediastinal contours are normal. VASCULARITY: Normal BONES:Unremarkable SUPPORT LINES: None OTHER: [facility] [employer] Yvette Stringer MD - 06/28/2023 Patient Name: [facility] 1965 [id number] Exam Date/Time: 06/28/2023 03:08 Procedure: XR CHEST 1 VIEW Ordering Provider: MUSTAFA KATHRYN Reason For Exam: CHEST PAIN CLINICAL INDICATION: CHEST PAIN COMPARISON: 12/08/2020 TECHNIQUE: Single portable AP radiograph of the chest. FINDINGS: LUNGS/PLEURA:Lung volumes are low. No areas of consolidation or effusion. Trachea is midline. No pneumothorax. MEDIASTINUM:Heart size and mediastinal contours are normal. VASCULARITY: Normal BONES:Unremarkable SUPPORT LINES: None OTHER: IMPRESSION: Low lung volumes. No acute infiltrate or effusion. Report Dictated on Electronically Signed By: Chucho Stringer MD Electronically Signed Date/Time: 06/28/2023 3:08 AM EDT [facility] Radiology Study observation (narrative) [employer] [employer] XR Chest Single viewOrdered By: Yvette Stringer on 06-28-2023 [employer] [employer] Work Phone: Basophil percentageOrdered B y: Jared Guzman on 05-31-2023 Chloride [Moles/Vol] 106 mmol/L 98-107 [facility] Glucose [Mass/Vol] 227 mg/dL 74-106 [facility] Comment on above: Glucose result great er than or equal to 200 mg/dLsuggests DIABETES MELLITUS per A.D.A. criteria. Potassium [Moles/Vol] 4.8 mmol/L 3.5-5.[address] [facility] Sodium [Moles/Vol] 137 mmol/L 136-145 [facility] WBC (Bld) [#/Vol] 7.7 10*3/uL 4.4-11.0 [facility] Blood erythrocytes count (nu mber/volume)Ordered By: Jared Guzman on 05-31-2023 RBC (Bld) [#/Vol] 3.90 10*6/uL 4.6-6.2 [facility] Blood hemoglobin measurement (mass/volume)Ordered By: Jared Guzman on 05-31-2023 Hemoglobin (Bld) [Mass/Vol] 10.4 g/dL 13.0-16.5 [facility] Blood platelet mean volumeOr dered By: Jared Guzman on 05-31-2023 Platelet mean volume (Bld) [Entitic vol] 9.9 fL 6.2-12.0 [facility] Determination of erythrocyte mean corpuscular volume (MCV)Ordered By: Jared Guzman on 05-31-2023 MCV (RBC) [Entitic vol] 89.7 fL 80-94 [facility] Hematocrit Auto (Bld) [Volum e fraction]Ordered By: Jared Guzman on 05-31-2023 Hematocrit (Bld) [Volume fraction] 35.0 % 40-54 [facility] - Chemistry and C hemistry - challengeOrdered By: Jared Guzman on 05-31-2023 CO2 [Moles/Vol] 26.0 mmol/L 21.0-32.0 [facility] Urea nitrogen/Creatinine [Mass ratio] 31.0 mg/mg 10-20 [facility] - Hematology and Cell countsOrdered By: Jared Guzman on 05-31-2023 Erythrocyte distribution width (RBC) [Entitic vol] 46.2 fL 35.1-43.9 [facility] Erythrocyte distribution width (RBC) [Ratio] 14.3 % 11.6-14.6 [facility] MCH (RBC) [Entitic mass] 26.7 pg 27.0-32.0 [facility] MCHC Auto (RBC) [Mass/Vol]Or dered By: Jared Guzman on 05-31-2023 MCHC (RBC) [Mass/Vol] 29.7 g/dL 32-[address] [facility] No Panel InformationOrdered By: Jared Guzman on 05-31-2023 Estimated GFR (MDRD) Amer 133 mL/min >60 [facility] Comment on above: GFR Calc Estimated GFR (MDRD) Non-Af Amer 110 mL/min >60 [facility] Comment on above: Non- GFR Calc Platelets bldOrdered By: Mike Guzman on 05-31-2023 Platelets (Bld) [#/Vol] 400 10*3/uL 150-450 [facility] Serum or plasma calcium mauricio urement (mass/volume)Ordered By: Jared Guzman on 05-31-2023 Calcium [Mass/Vol] 8.9 mg/dL 8.5-10.1 [facility] Serum or plasma creatinine m easurement (mass/volume)Ordered By: Jared Guzman on 05-31-2023 Creatinine [Mass/Vol] 0.78 mg/dL 0.70-1.[address] [facility] Comment on above: The validity of the calculated GFR & GFRAA in patients over 70 years has not been determined. Clinical correlation is essential. Serum or plasma urea nitroge n measurement (mass/volume)Ordered By: Jared Guzman on 05-31-2023 Urea nitrogen [Mass/Vol] 24 mg/dL 7-18 [facility] Thin prep Papanicolaou smear with manual screeningOrdered By: Jared Guzman on 05-31-2023 Thin prep Papanicolaou smear with manual screening 5 5-15 [facility] Whole blood hemoglobin A1c/t otal hemoglobin ratio (mass fraction)Ordered By: Jared Guzman on 05-31-2023 HbA1c (Bld) [Mass fraction] 8.2 % 3.8-5.6 [facility] Comment on above: Normal < 5.7 % Predi abetic 5.7 - 6.4 % Diabetic >or= 6.5 % Please note range changes. Basophil percentageOrdered B y: Jared Guzman on 04-19-2023 Bilirubin [Mass/Vol] 0.20 mg/dL 0.20-1.00 [facility] Comment on above: For patients on eltr ombopag therapy, use of [place] TBIL is not recommended. Chloride [Moles/Vol] 104 mmol/L 98-107 [facility] Cholesterol [Mass/Vol] 136 mg/dL <200 [facility] Comment on above: <200 mg/dL Desirable 200-240 mg/dL Borderline >240 mg/dL High Risk Glucose [Mass/Vol] 252 mg/dL 74-106 [facility] Comment on above: Glucose result great er than or equal to 200 mg/dLsuggests DIABETES MELLITUS per A.D.A. criteria. Potassium [Moles/Vol] 4.9 mmol/L 3.5-5.[address] [facility] Protein [Mass/Vol] 6.5 g/dL 6.4-8.2 [facility] Sodium [Moles/Vol] 136 mmol/L 136-145 [facility] Triglyceride [Mass/Vol] 173 mg/dL <199 [facility] Comment on above: The drugs N-Acetylcy steine and Metamizole may falsely depress this assay.Serum Triglycerides Reference Interval Normal <150 mg/dL Borderline high 150 - 199 mg/dL High 200 - 499 mg/dL Very High > or = 500 mg/dL WBC (Bld) [#/Vol] 7.4 10*3/uL 4.4-11.0 [facility] Blood erythrocytes count (nu mber/volume)Ordered By: Jared Guzman on 04-19-2023 RBC (Bld) [#/Vol] 4.12 10*6/uL 4.6-6.2 [facility] Blood hemoglobin measurement (mass/volume)Ordered By: Jared Guzman on 04-19-2023 Hemoglobin (Bld) [Mass/Vol] 11.2 g/dL 13.0-16.5 [facility] Blood platelet mean volumeOr dered By: Jared Guzman on 04-19-2023 Platelet mean volume (Bld) [Entitic vol] 10.2 fL 6.2-12.0 [facility] Determination of erythrocyte mean corpuscular volume (MCV)Ordered By: Jared Guzman on 04-19-2023 MCV (RBC) [Entitic vol] 90.8 fL 80-94 [facility] Hematocrit Auto (Bld) [Volum e fraction]Ordered By: Jared Guzman on 04-19-2023 Hematocrit (Bld) [Volume fraction] 37.4 % 40-54 [facility] - Chemistry and C hemistry - challengeOrdered By: Jared Guzman on 04-19-2023 ALP [Catalytic activity/Vol] 176 U/L 45-117 [facility] ALT [Catalytic activity/Vol] 39 U/L 16-61 [facility] CO2 [Moles/Vol] 26.0 mmol/L 21.0-32.0 [facility] Globulin (S) [Mass/Vol] 3.5 g/dL 2.2-4.2 [facility] Urea nitrogen/Creatinine [Mass ratio] 23.7 mg/mg 10-20 [facility] - Hematology and Cell countsOrdered By: Jared Guzman on 04-19-2023 Erythrocyte distribution width (RBC) [Entitic vol] 46.9 fL 35.1-43.9 [facility] Erythrocyte distribution width (RBC) [Ratio] 14.1 % 11.6-14.6 [facility] MCH (RBC) [Entitic mass] 27.2 pg 27.0-32.0 [facility] MCHC Auto (RBC) [Mass/Vol]Or dered By: Jared Guzman on 04-19-2023 MCHC (RBC) [Mass/Vol] 29.9 g/dL 32-[address] [facility] No Panel InformationOrdered By: Jared Guzman on 04-19-2023 Estimated GFR (MDRD) Amer 128 mL/min >60 [facility] Comment on above: GFR Calc Estimated GFR (MDRD) Non-Af Amer 106 mL/min >60 [facility] Comment on above: Non- GFR Calc Platelets bldOrdered By: Mike Guzman on 04-19-2023 Platelets (Bld) [#/Vol] 361 10*3/uL 150-450 [facility] Serum or plasma albumin mauricio urement (mass/volume)Ordered By: Jared Guzman on 04-19-2023 Albumin [Mass/Vol] 3.0 g/dL 3.2-5.0 [facility] Serum or plasma albumin/glob ulin mass ratioOrdered By: Jared Guzman on 04-19-2023 Albumin/Globulin [Mass ratio] 0.9 {ratio} 0.9-2.4 [facility] Serum or plasma calcium mauricio urement (mass/volume)Ordered By: Jared Guzman on 04-19-2023 Calcium [Mass/Vol] 8.8 mg/dL 8.5-10.1 [facility] Serum or plasma cholesterol in HDL measurement (mass/volume)Ordered By: Jared Guzman on 04-19-2023 Cholesterol in HDL [Mass/Vol] 33 mg/dL >40 [facility] Comment on above: The drugs N-Acetylcy steine and Metamizole may falsely depress this assay. Reference Range HDL <40 mg/dL Low HDL Cholesterol HDL >or= 60 mg/dL High HDL Cholesterol Serum or plasma cholesterol in VLDL measurement (mass/volume)Ordered By: Jared Guzman on 04-19-2023 Cholesterol in VLDL [Mass/Vol] 35 mg/dL 5-40 [facility] Serum or plasma creatinine m easurement (mass/volume)Ordered By: Jared Guzman on 04-19-2023 Creatinine [Mass/Vol] 0.80 mg/dL 0.70-1.[address] [facility] Comment on above: The validity of the calculated GFR & GFRAA in patients over 70 years has not been determined. Clinical correlation is essential. Serum or plasma low density lipoprotein (LDL) cholesterol measurement (mass/volume)Ordered By: Jared Guzman on 04-19-2023 Cholesterol in LDL [Mass/Vol] 68 mg/dL 0-130 [facility] Serum or plasma urea nitroge n measurement (mass/volume)Ordered By: Jared Guzman on 04-19-2023 Urea nitrogen [Mass/Vol] 19 mg/dL 7-18 [facility] Thin prep Papanicolaou smear with manual screeningOrdered By: Jared Guzman on 04-19-2023 Thin prep Papanicolaou smear with manual screening 21 U/L 15-37 [facility] Thin prep Papanicolaou smear with manual screening 6 5-15 [facility] Whole blood hemoglobin A1c/t otal hemoglobin ratio (mass fraction)Ordered By: Jared Guzman on 04-19-2023 HbA1c (Bld) [Mass fraction] 9.0 % 3.8-5.6 [facility] Comment on above: Normal < 5.7 % Predi abetic 5.7 - 6.4 % Diabetic >or= 6.5 % Please note range changes. Whole blood hemoglobin A1c/t otal hemoglobin ratio (mass fraction)Ordered By: Jared Guzman on 03-30-2023 HbA1c (Bld) [Mass fraction] 9.4 % 3.8-5.6 [facility] Comment on above: Normal < 5.7 % Predi abetic 5.7 - 6.4 % Diabetic >or= 6.5 % Please note range changes. Basophil percentageOrdered B y: Jared Guzman on 03-15-2023 Cholesterol [Mass/Vol] 142 mg/dL <200 [facility] Comment on above: <200 mg/dL Desirable 200-240 mg/dL Borderline >240 mg/dL High Risk Triglyceride [Mass/Vol] 149 mg/dL <199 [facility] Comment on above: The drugs N-Acetylcy steine and Metamizole may falsely depress this assay.Serum Triglycerides Reference Interval Normal <150 mg/dL Borderline high 150 - 199 mg/dL High 200 - 499 mg/dL Very High > or = 500 mg/dL Serum or plasma cholesterol in HDL measurement (mass/volume)Ordered By: Jared Guzman on 03-15-2023 Cholesterol in HDL [Mass/Vol] 32 mg/dL >40 [facility] Comment on above: The drugs N-Acetylcy steine and Metamizole may falsely depress this assay. Reference Range HDL <40 mg/dL Low HDL Cholesterol HDL >or= 60 mg/dL High HDL Cholesterol Serum or plasma cholesterol in VLDL measurement (mass/volume)Ordered By: Jared Guzman on 03-15-2023 Cholesterol in VLDL [Mass/Vol] 30 mg/dL 5-40 [facility] Serum or plasma low density lipoprotein (LDL) cholesterol measurement (mass/volume)Ordered By: Jared Guzman on 03-15-2023 Cholesterol in LDL [Mass/Vol] 80 mg/dL 0-130 [facility] Beta Hydroxybutyrateon 03-08 Beta hydroxybutyrate [Mass/Vol] 1.94 mg/dL 0.20 - 2.81 mg/dL [facility] Interpretation and review of laboratory results Normal [facility] [employer] CBC W Auto Differential pane l (Bld)Ordered By: Hina Jaramillo on 03-08-2023 Basophils (Bld) [#/Vol] 0.1 10*3/uL 0.0 - 0.2 10*3/uL [facility] Basophils/100 WBC (Bld) 0.5 % 0.0 - 2.0 % [facility] Eosinophils (Bld) [#/Vol] 0.1 10*3/uL 0.0 - 0.5 10*3/uL [facility] Eosinophils/100 WBC (Bld) 0.4 % Low 1.0 - 6.0 % [facility] Erythrocyte distribution width (RBC) [Ratio] 14.6 % High 11.5 - 14.5 % [facility] Hematocrit (Bld) [Volume fraction] 37.8 % [facility] Hemoglobin (Bld) [Mass/Vol] 12.6 g/dL [facility] Interpretation and review of laboratory results Abnormal [facility] Lymphocytes (Bld) [#/Vol] 1.1 10*3/uL 1.0 - 4.3 10*3/uL [facility] Lymphocytes/100 WBC (Bld) 8.4 % Low 20.0 - 40.0 % [facility] MCH (RBC) [Entitic mass] 27.6 pg 26.0 - 34.0 pg [facility] MCHC (RBC) [Mass/Vol] 33.3 % 32.0 - 36.0 % [facility] MCV (RBC) [Entitic vol] 82.8 fL 80.0 - 98.0 fL [facility] Monocytes (Bld) [#/Vol] 0.7 10*3/uL 0.0 - 0.8 10*3/uL [facility] Monocytes/100 WBC (Bld) 5.5 % 2.0 - 10.0 % [facility] Neutrophils (Bld) [#/Vol] 10.9 10*3/uL High 1.8 - 7.0 10*3/uL [facility] Neutrophils/100 WBC (Bld) 85.2 % High 40.0 - 80.0 % [facility] Nucleated RBC/100 WBC (Bld) [Ratio] 0.1 % [facility] Platelet mean volume (Bld) [Entitic vol] 8.2 fL 7.4 - 12.4 fL [facility] Platelets (Bld) [#/Vol] 362 10*3/uL 140 - 440 10*3/uL [facility] RBC (Bld) [#/Vol] 4.56 10*6/uL [facility] WBC (Bld) [#/Vol] 12.8 10*3/uL High 3.6 - 10.7 10*3/uL [facility] Health CT Abdomen WO contraston 1. No acute abdominal or pelvic process to explain symptoms. Report Dictated on Electronically Signed By: Abner Palacio Electronically Signed Date/Time: 03/08/2023 2:14 PM [facility] Patient Name: WILL ALVARADO : 1965 Exam Date/Time: 03/08/2023 13:54 Procedure: CT ABDOMEN PELVIS WO IV CONTRAST Ordering Provider: OSBORN MATTHEW Reason For Exam: Abdominal pain, acute, nonlocalized CT ABDOMEN AND PELVIS WITHOUT IV CONTRAST CLINICAL INDICATION: Abdominal pain. Intermittent nausea. TECHNIQUE: Multidetector axial CT images through the abdomen and pelvis were obtained without IV contrast. No oral contrast was administered. Images were reconstructed in sagittal and coronal planes. Dose reduction was employed with automated exposure control. COMPARISON: 11/22/2020. FINDINGS: This examination is limited for the evaluation of solid organs and vascular structures due to the lack of intravenous contrast. Patient's arm could not be elevated for the exam. Lung bases: Normal. Liver: normal hepatic contour. No hepatic lesion Biliary tree: The gallbladder is incompletely distended with bile. No biliary dilation. . Spleen: Normal spleen size without lesions. Adrenals: Normal. Pancreas: No pancreatic mass or pancreatic duct dilation. Kidneys: No contour abnormality or focal renal lesion identified. Renal collecting systems: No calculi, hydronephrosis or ureteral dilatation. Free air or fluid: None. Mesenteric/retroperitone al: No adenopathy or inflammation. Aorta: The aorta is normal in caliber. Bowel: The appendix is not identified. No dilatation is noted.. . Pelvic organs/viscera: No pelvic free fluid No mass is identified. Uterus is anteverted and normal in size. Bladder: No calculi or filling defects. Urinary bladder is normally distended. . Inguinal: No adenopathy. Abdominal wall/soft tissues: No ventral hernia is evident. Osseous structures: Mild lumbar degenerative spondylosis. [facility] Abner Palacio DO - 03/08/2023 Patient Name: WILL JACINTO : 1965 Exam Date/Time: 03/08/2023 13:54 Procedure: CT ABDOMEN PELVIS WO IV CONTRAST Ordering Provider: OSBORN MATTHEW Reason For Exam: Abdominal pain, acute, nonlocalized CT ABDOMEN AND PELVIS WITHOUT IV CONTRAST CLINICAL INDICATION: Abdominal pain. Intermittent nausea. TECHNIQUE: Multidetector axial CT images through the abdomen and pelvis were obtained without IV contrast. No oral contrast was administered. Images were reconstructed in sagittal and coronal planes. Dose reduction was employed with automated exposure control. COMPARISON: 11/22/2020. FINDINGS: This examination is limited for the evaluation of solid organs and vascular structures due to the lack of intravenous contrast. Patient's arm could not be elevated for the exam. Lung bases: Normal. Liver: normal hepatic contour. No hepatic lesion Biliary tree: The gallbladder is incompletely distended with bile. No biliary dilation. . Spleen: Normal spleen size without lesions. Adrenals: Normal. Pancreas: No pancreatic mass or pancreatic duct dilation. Kidneys: No contour abnormality or focal renal lesion identified. Renal collecting systems: No calculi, hydronephrosis or ureteral dilatation. Free air or fluid: None. Mesenteric/retroperitone al: No adenopathy or inflammation. Aorta: The aorta is normal in caliber. Bowel: The appendix is not identified. No dilatation is noted.. . Pelvic organs/viscera: No pelvic free fluid No mass is identified. Uterus is anteverted and normal in size. Bladder: No calculi or filling defects. Urinary bladder is normally distended. . Inguinal: No adenopathy. Abdominal wall/soft tissues: No ventral hernia is evident. Osseous structures: Mild lumbar degenerative spondylosis. IMPRESSION: 1. No acute abdominal or pelvic process to explain symptoms. Report Dictated on Electronically Signed By: Abner Palacio Electronically Signed Date/Time: 03/08/2023 2:14 PM EDT [facility] Study observation (narrative) [employer] CT Abdomen WO contrastOrdere d By: Abner Palacio on 03-08-2023 [employer] Work Phone: Comprehensive metabolic 1998 panelon 03-08-2023 Albumin [Mass/Vol] 4.1 g/dL 3.5 - 5.0 g/dL [employer] [facility] ALP [Catalytic activity/Vol] 158 U/L High 38 - 126 U/L [employer] [facility] ALT [Catalytic activity/Vol] 41 U/L [facility] Anion gap [Moles/Vol] 8 mmol/L 3 - 13 mmol/L [facility] AST [Catalytic activity/Vol] 29 U/L 15 - 46 U/L [facility] Bilirubin [Mass/Vol] 0.5 mg/dL 0.2 - 1 .3 mg/dL [facility] Calcium [Mass/Vol] 8.5 mg/dL 8.4 - 10. 4 mg/dL [facility] Chloride [Moles/Vol] 102 mmol/L 98 - 10 7 mmol/L [facility] CO2 [Moles/Vol] 23 mmol/L 22 - 30 mmol/L [facility] Creatinine [Mass/Vol] 0.56 mg/dL [facility] GFR/1.73 sq M.predicted MDRD (S/P/Bld) [Vol rate/Area] - PINF [facility] Comment on above: Calculation based on the Chronic Kidney Disease Epidemiology Collaboration (CKD-EPI) equation refit without adjustment for race Glucose [Mass/Vol] 197 mg/dL High 70 - 100 mg/dL [facility] Interpretation and review of laboratory results Abnormal [facility] Potassium [Moles/Vol] 4.7 mmol/L 3.5 - 5.1 mmol/L [facility] Protein [Mass/Vol] 7.4 g/dL 6.3 - 8.2 g/dL [facility] Sodium [Moles/Vol] 133 mmol/L Low 135 - 145 mmol/L [facility] Urea nitrogen [Mass/Vol] 20 mg/dL [facility] Lipaseon 03-08-2023 Lipase [Catalytic activity/Vol] 45 U/L 23 - 300 U/L [facility] Lipase [Catalytic activity/V ol]on 03-08-2023 Interpretation and review of laboratory results Normal [facility] No Panel Informationon 03-08 [facility] POCT glucose meteron 023 Glucose [Mass/Vol] 167 mg/dL High 70 - 100 mg/dL [facility] Interpretation and review of laboratory results Abnormal [facility] by: [facility], [address] [place] [id number] CLIA ID: [id number] [facility] Basophil percentageOrdered B y: Raj Caicedo on 01-13-2023 Cholesterol [Mass/Vol] 156 mg/dL <200 [facility] Comment on above: <200 mg/dL Desirable 200-240 mg/dL Borderline >240 mg/dL High Risk Triglyceride [Mass/Vol] 235 mg/dL <199 [facility] Comment on above: The drugs N-Acetylcy steine and Metamizole may falsely depress this assay.Serum Triglycerides Reference Interval Normal <150 mg/dL Borderline high 150 - 199 mg/dL High 200 - 499 mg/dL Very High > or = 500 mg/dL Serum or plasma cholesterol in HDL measurement (mass/volume)Ordered By: Raj Caicedo on 01-13-2023 Cholesterol in HDL [Mass/Vol] 37 mg/dL >40 [facility] Comment on above: The drugs N-Acetylcy steine and Metamizole may falsely depress this assay. Reference Range HDL <40 mg/dL Low HDL Cholesterol HDL >or= 60 mg/dL High HDL Cholesterol Serum or plasma cholesterol in VLDL measurement (mass/volume)Ordered By: Raj Caicedo on 01-13-2023 Cholesterol in VLDL [Mass/Vol] 47 mg/dL 5-40 [facility] Serum or plasma low density lipoprotein (LDL) cholesterol measurement (mass/volume)Ordered By: Raj Caicedo on 01-13-2023 Cholesterol in LDL [Mass/Vol] 72 mg/dL 0-130 [facility] Whole blood hemoglobin A1c/t otal hemoglobin ratio (mass fraction)Ordered By: Jared Guzman on 12-02-2022 HbA1c (Bld) [Mass fraction] 9.5 % 3.8-5.6 [facility] Comment on above: Normal < 5.7 % Predi abetic 5.7 - 6.4 % Diabetic >or= 6.5 % Please note range changes. Basophil percentageOrdered B y: Jared Guzman on 10-27-2022 Bilirubin [Mass/Vol] 0.30 mg/dL 0.20-1.00 [facility] Comment on above: For patients on eltr ombopag therapy, use of Dim[place] TBIL is not recommended. Chloride [Moles/Vol] 104 mmol/L 98-107 [facility] Cholesterol [Mass/Vol] 150 mg/dL <200 [facility] Comment on above: <200 mg/dL Desirable 200-240 mg/dL Borderline >240 mg/dL High Risk Glucose [Mass/Vol] 217 mg/dL 74-106 [facility] Comment on above: Glucose result great er than or equal to 200 mg/dLsuggests DIABETES MELLITUS per A.D.A. criteria. Potassium [Moles/Vol] 4.9 mmol/L 3.5-5.[address] [facility] Protein [Mass/Vol] 6.5 g/dL 6.4-8.2 [facility] Sodium [Moles/Vol] 136 mmol/L 136-145 [facility] Triglyceride [Mass/Vol] 197 mg/dL <199 [facility] Comment on above: The drugs N-Acetylcy steine and Metamizole may falsely depress this assay.Serum Triglycerides Reference Interval Normal <150 mg/dL Borderline high 150 - 199 mg/dL High 200 - 499 mg/dL Very High > or = 500 mg/dL WBC (Bld) [#/Vol] 7.5 10*3/uL 4.4-11.0 [facility] Blood erythrocytes count (nu mber/volume)Ordered By: Jared Guzman on 10-27-2022 RBC (Bld) [#/Vol] 4.03 10*6/uL 4.6-6.2 [facility] Blood hemoglobin measurement (mass/volume)Ordered By: Jared Guzman on 10-27-2022 Hemoglobin (Bld) [Mass/Vol] 11.3 g/dL 13.0-16.5 [facility] Blood platelet mean volumeOr dered By: Jared Guzman on 10-27-2022 Platelet mean volume (Bld) [Entitic vol] 10.1 fL 6.2-12.0 [facility] Determination of erythrocyte mean corpuscular volume (MCV)Ordered By: Jared Guzman on 10-27-2022 MCV (RBC) [Entitic vol] 89.3 fL 80-94 [facility] Hematocrit Auto (Bld) [Volum e fraction]Ordered By: Jared Guzman on 10-27-2022 Hematocrit (Bld) [Volume fraction] 36.0 % 40-54 [facility] Laboratory - Chemistry and C hemistry - challengeOrdered By: Jared Guzman on 10-27-2022 ALP [Catalytic activity/Vol] 179 U/L 45-117 [facility] ALT [Catalytic activity/Vol] 41 U/L 16-61 [facility] CO2 [Moles/Vol] 26.0 mmol/L 21.0-32.0 [facility] Globulin (S) [Mass/Vol] 3.4 g/dL 2.2-4.2 [facility] Urea nitrogen/Creatinine [Mass ratio] 27.7 mg/mg -20 [facility] - Hematology and Cell countsOrdered By: Jared Guzman on 10-27-2022 Erythrocyte distribution width (RBC) [Entitic vol] 45.3 fL 35.1-43.9 [facility] Erythrocyte distribution width (RBC) [Ratio] 13.8 % 11.6-14.6 [facility] MCH (RBC) [Entitic mass] 28.0 pg 27.0-32.0 [facility] MCHC Auto (RBC) [Mass/Vol]Or dered By: Jared Guzman on 10-27-2022 MCHC (RBC) [Mass/Vol] 31.4 g/dL 32-[address] [facility] No Panel InformationOrdered By: Jared Guzman on 10-27-2022 Estimated GFR (MDRD) Amer 123 mL/min >60 [facility] Comment on above: GFR Calc Estimated GFR (MDRD) Non-Af Amer 102 mL/min >60 [facility] Comment on above: Non- GFR Calc Platelets bldOrdered By: Mike Guzman on 10-27-2022 Platelets (Bld) [#/Vol] 343 10*3/uL 150-450 [facility] Serum or plasma albumin mauricio urement (mass/volume)Ordered By: Jared Guzman on 10-27-2022 Albumin [Mass/Vol] 3.1 g/dL 3.2-5.0 [facility] Serum or plasma albumin/glob ulin mass ratioOrdered By: Jared Guzman on 10-27-2022 Albumin/Globulin [Mass ratio] 0.9 {ratio} 0.9-2.4 [facility] Serum or plasma calcium mauricio urement (mass/volume)Ordered By: Jared Guzman on 10-27-2022 Calcium [Mass/Vol] 9.0 mg/dL 8.5-10.1 [facility] Serum or plasma cholesterol in HDL measurement (mass/volume)Ordered By: Jared Guzman on 10-27-2022 Cholesterol in HDL [Mass/Vol] 34 mg/dL >40 [facility] Comment on above: The drugs N-Acetylcy steine and Metamizole may falsely depress this assay. Reference Range HDL <40 mg/dL Low HDL Cholesterol HDL >or= 60 mg/dL High HDL Cholesterol Serum or plasma cholesterol in VLDL measurement (mass/volume)Ordered By: Jared Guzman on 10-27-2022 Cholesterol in VLDL [Mass/Vol] 39 mg/dL 5-40 [facility] Serum or plasma creatinine m easurement (mass/volume)Ordered By: Jared Guzman on 10-27-2022 Creatinine [Mass/Vol] 0.83 mg/dL 0.70-1.[address] [facility] Comment on above: The validity of the calculated GFR & GFRAA in patients over 70 years has not been determined. Clinical correlation is essential. Serum or plasma low density lipoprotein (LDL) cholesterol measurement (mass/volume)Ordered By: Jared Guzman on 10-27-2022 Cholesterol in LDL [Mass/Vol] 77 mg/dL 0-130 [facility] Serum or plasma urea nitroge n measurement (mass/volume)Ordered By: Jared Guzman on 10-27-2022 Urea nitrogen [Mass/Vol] 23 mg/dL 7-18 [facility] Thin prep Papanicolaou smear with manual screeningOrdered By: Jared Guzman on 10-27-2022 Thin prep Papanicolaou smear with manual screening 16 U/L 15-37 [facility] Thin prep Papanicolaou smear with manual screening 6 5-15 [facility] Basophil percentageon 2021 Chloride [Moles/Vol] 105 mmol/L 98-107 [facility] Work Phone: Glucose [Mass/Vol] 188 mg/dL 74-106 [facility] Work Phone: Comment on above: Fasting Glucose resu lt greater than or equal to 126 mg/dL suggests DIABETES MELLITUS per A.D.A. criteria. Potassium [Moles/Vol] 5.1 mmol/L 3.5-5.[address] [facility] Work Phone: Sodium [Moles/Vol] 134 mmol/L 136-145 [facility] Work Phone: WBC (Bld) [#/Vol] 9.0 10*3/uL 4.4-11.0 [facility] Work Phone: Blood erythrocytes count (nu mber/volume)on 06-24-2022 RBC (Bld) [#/Vol] 4.12 10*6/uL 4.6-6.2 [facility] Work Phone: Blood hemoglobin measurement (mass/volume)on 06-24-2022 Hemoglobin (Bld) [Mass/Vol] 11.5 g/dL 13.0-16.5 [facility] Work Phone: Blood platelet mean volumeon 06-24-2022 Platelet mean volume (Bld) [Entitic vol] 10.7 fL 6.2-12.0 [facility] Work Phone: Determination of erythrocyte mean corpuscular volume (MCV)on 06-24-2022 MCV (RBC) [Entitic vol] 87.9 fL 80-94 [facility] Work Phone: Hematocrit Auto (Bld) [Volum e fraction]on 06-24-2022 Hematocrit (Bld) [Volume fraction] 36.2 % 40-54 [facility] Work Phone: Laboratory - Chemistry and C hemistry - challengeon 06-24-2022 CO2 [Moles/Vol] 22.0 mmol/L 21.0-32.0 [facility] Work Phone: Urea nitrogen/Creatinine [Mass ratio] 42.1 mg/mg 10-20 [facility] Work Phone: Laboratory - Hematology and Cell countson 06-24-2022 Erythrocyte distribution width (RBC) [Entitic vol] 45.2 fL 35.1-43.9 [facility] Work Phone: Erythrocyte distribution width (RBC) [Ratio] 14.1 % 11.6-14.6 [facility] Work Phone: MCH (RBC) [Entitic mass] 27.9 pg 27.0-32.0 [facility] Work Phone: MCHC Auto (RBC) [Mass/Vol]on 06-24-2022 MCHC (RBC) [Mass/Vol] 31.8 g/dL 32-[address] [facility] Work Phone: No Panel Informationon 06-24 Estimated GFR (MDRD) Amer 119 mL/min >60 [facility] Work Phone: Comment on above: GFR Calc Estimated GFR (MDRD) Non-Af Amer 99 mL/min >60 [facility] Work Phone: Comment on above: Non- GFR Calc Platelets bldon 06-24-2022 Platelets (Bld) [#/Vol] 396 10*3/uL 150-450 [facility] Work Phone: Serum or plasma calcium mauricio urement (mass/volume)on 06-24-2022 Calcium [Mass/Vol] 9.1 mg/dL 8.5-10.1 [facility] Work Phone: Serum or plasma creatinine m easurement (mass/volume)on 06-24-2022 Creatinine [Mass/Vol] 0.86 mg/dL 0.70-1.[address] [facility] Work Phone: Comment on above: The validity of the calculated GFR & GFRAA in patients over 70 years has not been determined. Clinical correlation is essential. Serum or plasma urea nitroge n measurement (mass/volume)on 06-24-2022 Urea nitrogen [Mass/Vol] 36 mg/dL -18 [facility] Work Phone: Thin prep Papanicolaou smear with manual screeningon 06-24-2022 Thin prep Papanicolaou smear with manual screening 7 5-15 [facility] Work Phone: Basophil percentageon 2021 Bilirubin [Mass/Vol] 0.20 mg/dL 0.20-1.00 [facility] Work Phone: Comment on above: For patients on eltr ombopag therapy, use of [place] TBIL is not recommended. Chloride [Moles/Vol] 104 mmol/L 98-107 [facility] Work Phone: Glucose [Mass/Vol] 299 mg/dL 74-106 [facility] Work Phone: Comment on above: Glucose result great er than or equal to 200 mg/dLsuggests DIABETES MELLITUS per A.D.A. criteria. Potassium [Moles/Vol] 5.0 mmol/L 3.5-5.1 [facility] Work Phone: Protein [Mass/Vol] 6.7 g/dL 6.4-8.2 [facility]: Sodium [Moles/Vol] 135 mmol/L 136-145 [facility] Work Phone: WBC (Bld) [#/Vol] 7.9 10*3/uL 4.4-11.0 [facility] Work Phone: Blood erythrocytes count (nu mber/volume)on 05-25-2022 RBC (Bld) [#/Vol] 3.86 10*6/uL 4.6-6.2 [facility] Work [facility]: Blood hemoglobin measurement (mass/volume)on 05-25-2022 Hemoglobin (Bld) [Mass/Vol] 10.5 g/dL 13.0-16.5 [facility] Work Phone: Blood platelet mean volumeon 05-25-2022 Platelet mean volume (Bld) [Entitic vol] 10.5 fL 6.2-12.0 [facility] Work Phone: Determination of erythrocyte mean corpuscular volume (MCV)on 05-25-2022 MCV (RBC) [Entitic vol] 88.1 fL 80-94 [facility] Work Phone: Hematocrit Auto (Bld) [Volum e fraction]on 05-25-2022 Hematocrit (Bld) [Volume fraction] 34.0 % 40-54 [facility] Work Phone: Laboratory - Chemistry and C hemistry - challengeon 05-25-2022 ALP [Catalytic activity/Vol] 187 U/L 45-117 [facility] Work Phone: ALT [Catalytic activity/Vol] 37 U/L 16-61 [facility] Work Phone: CO2 [Moles/Vol] 25.0 mmol/L 21.0-32.0 [facility] Work Phone: Globulin (S) [Mass/Vol] 3.8 g/dL 2.2-4.2 [facility] Work Phone: Urea nitrogen/Creatinine [Mass ratio] 27.5 mg/mg 10-20 [facility] Work Phone: Laboratory - Hematology and Cell countson 05-25-2022 Erythrocyte distribution width (RBC) [Entitic vol] 45.1 fL 35.1-43.9 [facility] Work Phone: Erythrocyte distribution width (RBC) [Ratio] 14.1 % 11.6-14.6 [facility] Work Phone: MCH (RBC) [Entitic mass] 27.2 pg 27.0-32.0 [facility] Work Phone: MCHC Auto (RBC) [Mass/Vol]on 05-25-2022 MCHC (RBC) [Mass/Vol] 30.9 g/dL 32-[address] [facility] Work Phone: No Panel Informationon 05-25 Estimated GFR (MDRD) Amer 123 mL/min >60 [facility] Work Phone: Comment on above: GFR Calc Estimated GFR (MDRD) Non-Af Amer 101 mL/min >60 [facility] Work Phone: Comment on above: Non- GFR Calc Platelets bldon 05-25-2022 Platelets (Bld) [#/Vol] 320 10*3/uL 150-450 [facility] Work Phone: Serum or plasma albumin mauricio urement (mass/volume)on 05-25-2022 Albumin [Mass/Vol] 2.9 g/dL 3.2-5.0 [facility] Work Phone: Serum or plasma albumin/glob ulin mass ratioon 05-25-2022 Albumin/Globulin [Mass ratio] 0.8 {ratio} 0.9-2.4 [facility] Work Phone: Serum or plasma calcium mauricio urement (mass/volume)on 05-25-2022 Calcium [Mass/Vol] 9.0 mg/dL 8.5-10.1 [facility] Work Phone: Serum or plasma creatinine m easurement (mass/volume)on 05-25-2022 Creatinine [Mass/Vol] 0.84 mg/dL 0.70-1.30 [facility] Work Phone: Comment on above: The validity of the calculated GFR & GFRAA in patients over 70 years has not been determined. Clinical correlation is essential. Serum or plasma urea nitroge n measurement (mass/volume)on 05-25-2022 Urea nitrogen [Mass/Vol] 23 mg/dL 7-18 [facility] Work Phone: Thin prep Papanicolaou smear with manual screeningon 05-25-2022 Thin prep Papanicolaou smear with manual screening 14 U/L 15-37 [facility] Work Phone: Thin prep Papanicolaou smear with manual screening 6 5-15 [facility] Work Phone: Basophil percentageon 2021 Cholesterol [Mass/Vol] 135 mg/dL <200 [facility] Work Phone: Comment on above: <200 mg/dL Desirable 200-240 mg/dL Borderline >240 mg/dL High Risk Triglyceride [Mass/Vol] 183 mg/dL <199 [facility] Work Phone: Comment on above: The drugs N-Acetylcy steine and Metamizole may falsely depress this assay.Serum Triglycerides Reference Interval Normal <150 mg/dL Borderline high 150 - 199 mg/dL High 200 - 499 mg/dL Very High > or = 500 mg/dL Serum or plasma cholesterol in HDL measurement (mass/volume)on 04-27-2022 Cholesterol in HDL [Mass/Vol] 35 mg/dL >40 [facility] Work Phone: Comment on above: The drugs N-Acetylcy steine and Metamizole may falsely depress this assay. Reference Range HDL <40 mg/dL Low HDL Cholesterol HDL >or= 60 mg/dL High HDL Cholesterol Serum or plasma cholesterol in VLDL measurement (mass/volume)on 04-27-2022 Cholesterol in VLDL [Mass/Vol] 37 mg/dL 5-40 [facility] Work Phone: Serum or plasma low density lipoprotein (LDL) cholesterol measurement (mass/volume)on 04-27-2022 Cholesterol in LDL [Mass/Vol] 63 mg/dL 0-130 [facility] Work Phone: Basophil percentageon 2021 Bilirubin [Mass/Vol] 0.30 mg/dL 0.20-1.00 [facility] Work Phone: Comment on above: For patients on eltr ombopag therapy, use of [place] TBIL is not recommended. Chloride [Moles/Vol] 105 mmol/L 98-107 [facility] Work Phone: Glucose [Mass/Vol] 260 mg/dL 74-106 [facility] Work Phone: Comment on above: Glucose result great er than or equal to 200 mg/dLsuggests DIABETES MELLITUS per A.D.A. criteria. Potassium [Moles/Vol] 4.7 mmol/L 3.5-5.[address] [facility] Work Phone: Protein [Mass/Vol] 6.8 g/dL 6.4-8.2 [facility] Work Phone: Sodium [Moles/Vol] 134 mmol/L 136-145 [facility] Work Phone: WBC (Bld) [#/Vol] 8.9 10*3/uL 4.4-11.0 [facility] Work Phone: Blood erythrocytes count (nu mber/volume)on 04-13-2022 RBC (Bld) [#/Vol] 3.91 10*6/uL 4.6-6.2 [facility] Work Phone: Blood hemoglobin measurement (mass/volume)on 04-13-2022 Hemoglobin (Bld) [Mass/Vol] 11.0 g/dL 13.0-16.5 [facility] Work Phone: Blood platelet mean volumeon 04-13-2022 Platelet mean volume (Bld) [Entitic vol] 10.3 fL 6.2-12.0 [facility] Work Phone: Determination of erythrocyte mean corpuscular volume (MCV)on 04-13-2022 MCV (RBC) [Entitic vol] 87.7 fL 80-94 [facility] Work Phone: Hematocrit Auto (Bld) [Volum e fraction]on 04-13-2022 Hematocrit (Bld) [Volume fraction] 34.3 % 40-54 [facility] Work Phone: Laboratory - Chemistry and C hemistry - challengeon 04-13-2022 ALP [Catalytic activity/Vol] 189 U/L 45-117 [facility] Work Phone: ALT [Catalytic activity/Vol] 43 U/L 16-61 [facility] Work Phone: CO2 [Moles/Vol] 23.0 mmol/L 21.0-32.0 [facility] Work Phone: Globulin (S) [Mass/Vol] 3.6 g/dL 2.2-4.2 [facility] Work Phone: Urea nitrogen/Creatinine [Mass ratio] 34.9 mg/mg 10-20 [facility] Work Phone: Laboratory - Hematology and Cell countson 04-13-2022 Erythrocyte distribution width (RBC) [Entitic vol] 42.3 fL 35.1-43.9 [facility] Work Phone: Erythrocyte distribution width (RBC) [Ratio] 13.2 % 11.6-14.6 [facility] Work Phone: MCH (RBC) [Entitic mass] 28.1 pg 27.0-32.0 [facility] Work Phone: MCHC Auto (RBC) [Mass/Vol]on 04-13-2022 MCHC (RBC) [Mass/Vol] 32.1 g/dL 32-[address] [facility] Work Phone: No Panel Informationon 04-13 Estimated GFR (MDRD) Amer 134 mL/min >60 [facility] Work Phone: Comment on above: GFR Calc Estimated GFR (MDRD) Non-Af Amer 111 mL/min >60 [facility] Work Phone: Comment on above: Non- GFR Calc Platelets bldon 04-13-2022 Platelets (Bld) [#/Vol] 310 10*3/uL 150-450 [facility] Work Phone: Serum or plasma albumin mauricio urement (mass/volume)on 04-13-2022 Albumin [Mass/Vol] 3.2 g/dL 3.2-5.0 [facility] Work Phone: Serum or plasma albumin/glob ulin mass ratioon 04-13-2022 Albumin/Globulin [Mass ratio] 0.9 {ratio} 0.9-2.4 [facility] Work Phone: Serum or plasma calcium mauricio urement (mass/volume)on 04-13-2022 Calcium [Mass/Vol] 9.1 mg/dL 8.5-10.1 [facility] Work Phone: Serum or plasma creatinine m easurement (mass/volume)on 04-13-2022 Creatinine [Mass/Vol] 0.77 mg/dL 0.70-1.[address] [facility] Work Phone: Comment on above: The validity of the calculated GFR & GFRAA in patients over 70 years has not been determined. Clinical correlation is essential. Serum or plasma urea nitroge n measurement (mass/volume)on 04-13-2022 Urea nitrogen [Mass/Vol] 27 mg/dL 7-18 [facility] Work Phone: Thin prep Papanicolaou smear with manual screeningon 04-13-2022 Thin prep Papanicolaou smear with manual screening 16 U/L 15-37 [facility] Work Phone: Thin prep Papanicolaou smear with manual screening 6 5-15 [facility] Work Phone: Basophil percentageon 2021 Chloride [Moles/Vol] 105 mmol/L 98-107 [facility] Work Phone: Glucose [Mass/Vol] 284 mg/dL 74-106 [facility] Work Phone: Comment on above: Glucose result great er than or equal to 200 mg/dLsuggests DIABETES MELLITUS per A.D.A. criteria. Potassium [Moles/Vol] 4.6 mmol/L 3.5-5.[address] [facility] Work Phone: Sodium [Moles/Vol] 134 mmol/L 136-145 [facility] Work Phone: WBC (Bld) [#/Vol] 7.7 10*3/uL 4.4-11.0 [facility] Work Phone: Blood erythrocytes count (nu mber/volume)on 03-02-2022 RBC (Bld) [#/Vol] 3.83 10*6/uL 4.6-6.2 [facility] Work Phone: Blood hemoglobin measurement (mass/volume)on 03-02-2022 Hemoglobin (Bld) [Mass/Vol] 10.7 g/dL 13.0-16.5 [facility] Work Phone: Blood platelet mean volumeon 03-02-2022 Platelet mean volume (Bld) [Entitic vol] 10.6 fL 6.2-12.0 [facility] Work Phone: Determination of erythrocyte mean corpuscular volume (MCV)on 03-02-2022 MCV (RBC) [Entitic vol] 90.1 fL 80-94 [facility] Work Phone: Hematocrit Auto (Bld) [Volum e fraction]on 03-02-2022 Hematocrit (Bld) [Volume fraction] 34.5 % 40-54 [facility] Work Phone: Laboratory - Chemistry and C hemistry - challengeon 03-02-2022 CO2 [Moles/Vol] 22.0 mmol/L 21.0-32.0 [facility] Work Phone: Urea nitrogen/Creatinine [Mass ratio] 31.8 mg/mg 10-20 [facility] Work Phone: Laboratory - Hematology and Cell countson 03-02-2022 Erythrocyte distribution width (RBC) [Entitic vol] 44.5 fL 35.1-43.9 [facility] Work Phone: Erythrocyte distribution width (RBC) [Ratio] 13.5 % 11.6-14.6 [facility] Work Phone: MCH (RBC) [Entitic mass] 27.9 pg 27.0-32.0 [facility] Work Phone: MCHC Auto (RBC) [Mass/Vol]on 03-02-2022 MCHC (RBC) [Mass/Vol] 31.0 g/dL 32-[address] [facility] Work Phone: No Panel Informationon 03-02 Estimated GFR (MDRD) Amer 132 mL/min >60 [facility] Work Phone: Comment on above: GFR Calc Estimated GFR (MDRD) Non-Af Amer 109 mL/min >60 [facility] Work Phone: Comment on above: Non- GFR Calc Platelets bldon 03-02-2022 Platelets (Bld) [#/Vol] 310 10*3/uL 150-450 [facility] Work Phone: Serum or plasma calcium mauricio urement (mass/volume)on 03-02-2022 Calcium [Mass/Vol] 9.0 mg/dL 8.5-10.1 [facility] Work Phone: Serum or plasma creatinine m easurement (mass/volume)on 03-02-2022 Creatinine [Mass/Vol] 0.79 mg/dL 0.70-1.[address] [facility] Work Phone: Comment on above: The validity of the calculated GFR & GFRAA in patients over 70 years has not been determined. Clinical correlation is essential. Serum or plasma urea nitroge n measurement (mass/volume)on 03-02-2022 Urea nitrogen [Mass/Vol] 25 mg/dL 7-18 [facility] Work Phone: Thin prep Papanicolaou smear with manual screeningon 03-02-2022 Thin prep Papanicolaou smear with manual screening 7 5-15 [facility] Work Phone: Basophil percentageon 2021 Bilirubin [Mass/Vol] 0.30 mg/dL 0.20-1.00 [facility] Work Phone: Comment on above: For patients on eltr ombopag therapy, use of [place] TBIL is not recommended. Chloride [Moles/Vol] 103 mmol/L 98-107 [facility] Work Phone: Glucose [Mass/Vol] 334 mg/dL 74-106 [facility] Work Phone: Comment on above: Glucose result great er than or equal to 200 mg/dLsuggests DIABETES MELLITUS per A.D.A. criteria. Potassium [Moles/Vol] 5.0 mmol/L 3.5-5.[address] [facility] Work Phone: Protein [Mass/Vol] 6.8 g/dL 6.4-8.2 [facility] Work Phone: Sodium [Moles/Vol] 135 mmol/L 136-145 [facility] Work Phone: WBC (Bld) [#/Vol] 7.0 10*3/uL 4.4-11.0 [facility] Work Phone: Blood erythrocytes count (nu mber/volume)on 01-29-2022 RBC (Bld) [#/Vol] 3.91 10*6/uL 4.6-6.2 [facility] Work Phone: Blood hemoglobin measurement (mass/volume)on 01-29-2022 Hemoglobin (Bld) [Mass/Vol] 10.9 g/dL 13.0-16.5 [facility] Work Phone: Blood platelet mean volumeon 01-29-2022 Platelet mean volume (Bld) [Entitic vol] 10.9 fL 6.2-12.0 [facility] Work Phone: Determination of erythrocyte mean corpuscular volume (MCV)on 01-29-2022 MCV (RBC) [Entitic vol] 89.8 fL 80-94 [facility] Work Phone: Hematocrit Auto (Bld) [Volum e fraction]on 01-29-2022 Hematocrit (Bld) [Volume fraction] 35.1 % 40-54 [facility] Work Phone: Laboratory - Chemistry and C hemistry - challengeon 01-29-2022 ALP [Catalytic activity/Vol] 194 U/L 45-117 [facility] Work Phone: ALT [Catalytic activity/Vol] 38 U/L 16-61 [facility] Work Phone: CO2 [Moles/Vol] 27.0 mmol/L 21.0-32.0 [facility] Work Phone: Globulin (S) [Mass/Vol] 3.5 g/dL 2.2-4.2 [facility] Work Phone: Urea nitrogen/Creatinine [Mass ratio] 20.6 mg/mg 10-20 [facility] Work Phone: Laboratory - Hematology and Cell countson 01-29-2022 Erythrocyte distribution width (RBC) [Entitic vol] 43.8 fL 35.1-43.9 [facility] Work Phone: Erythrocyte distribution width (RBC) [Ratio] 13.3 % 11.6-14.6 [facility] Work Phone: MCH (RBC) [Entitic mass] 27.9 pg 27.0-32.0 [facility] Work Phone: MCHC Auto (RBC) [Mass/Vol]on 01-29-2022 MCHC (RBC) [Mass/Vol] 31.1 g/dL 32-[address] [facility] Work Phone: No Panel Informationon 01-29 Estimated GFR (MDRD) Amer 117 mL/min >60 [facility] Work Phone: Comment on above: GFR Calc Estimated GFR (MDRD) Non-Af Amer 97 mL/min >60 [facility] Work Phone: Comment on above: Non- GFR Calc Platelets bldon 01-29-2022 Platelets (Bld) [#/Vol] 306 10*3/uL 150-450 [facility] Work Phone: Serum or plasma albumin mauricio urement (mass/volume)on 01-29-2022 Albumin [Mass/Vol] 3.3 g/dL 3.2-5.0 [facility] Work Phone: Serum or plasma albumin/glob ulin mass ratioon 01-29-2022 Albumin/Globulin [Mass ratio] 0.9 {ratio} 0.9-2.4 [facility] Work Phone: Serum or plasma calcium mauricio urement (mass/volume)on 01-29-2022 Calcium [Mass/Vol] 8.8 mg/dL 8.5-10.1 [facility] Work Phone: Serum or plasma creatinine m easurement (mass/volume)on 01-29-2022 Creatinine [Mass/Vol] 0.87 mg/dL 0.70-1.[address] [facility] Work Phone: Comment on above: The validity of the calculated GFR & GFRAA in patients over 70 years has not been determined. Clinical correlation is essential. Serum or plasma urea nitroge n measurement (mass/volume)on 01-29-2022 Urea nitrogen [Mass/Vol] 18 mg/dL 7-18 [facility] Work Phone: Thin prep Papanicolaou smear with manual screeningon 01-29-2022 Thin prep Papanicolaou smear with manual screening 11 U/L 15-37 [facility] Work Phone: Thin prep Papanicolaou smear with manual screening 5 5-15 [facility] Work Phone: Whole blood hemoglobin A1c/t otal hemoglobin ratio (mass fraction)on 01-29-2022 HbA1c (Bld) [Mass fraction] 8.8 % 3.8-5.6 [facility] Work Phone: Comment on above: Normal < 5.7 % Predi abetic 5.7 - 6.4 % Diabetic >or= 6.5 % Please note range changes. Basophil percentageon 2021 Cholesterol [Mass/Vol] 169 mg/dL <200 [facility] Work Phone: Comment on above: <200 mg/dL Desirable 200-240 mg/dL Borderline >240 mg/dL High Risk Triglyceride [Mass/Vol] 177 mg/dL <199 [facility] Work Phone: Comment on above: The drugs N-Acetylcy steine and Metamizole may falsely depress this assay.Serum Triglycerides Reference Interval Normal <150 mg/dL Borderline high 150 - 199 mg/dL High 200 - 499 mg/dL Very High > or = 500 mg/dL Serum or plasma cholesterol in HDL measurement (mass/volume)on 01-19-2022 Cholesterol in HDL [Mass/Vol] 35 mg/dL >40 [facility] Work Phone: Comment on above: The drugs N-Acetylcy steine and Metamizole may falsely depress this assay. Reference Range HDL <40 mg/dL Low HDL Cholesterol HDL >or= 60 mg/dL High HDL Cholesterol Serum or plasma cholesterol in VLDL measurement (mass/volume)on 01-19-2022 Cholesterol in VLDL [Mass/Vol] 35 mg/dL 5-40 [facility] Work Phone: Serum or plasma low density lipoprotein (LDL) cholesterol measurement (mass/volume)on 01-19-2022 Cholesterol in LDL [Mass/Vol] 99 mg/dL 0-130 [facility] Work Phone: Basic Metabolic Panelon 12-09 Calcium [Mass/Vol] 9.4 mg/dL Normal 8.4-10.4 [facility] Comment on above: Performed By: #### B MP3, HGHCT #### [facility] [address] [place] [address] Glucose [Mass/Vol] 119 mg/dL High 70-100 [facility] Comment on above: Performed By: #### B MP3, HGHCT #### [facility] [address] [place] [address] Urea nitrogen [Mass/Vol] 19 mg/dL Normal 9-20 [facility] Comment on above: Performed By: #### B MP3, HGHCT #### [facility] [address] [place] [address] Anion gap [Moles/Vol] 8 mmol/L Normal 3-13 [facility] Comment on above: Performed By: #### B MP3, HGHCT #### [facility] [address] [place] [address] CO2 [Moles/Vol] 25 mmol/L Normal 22-30 [facility] Comment on above: Performed By: #### Olvin MP3, HGHCT #### [facility] [address] [place] [address] Creatinine [Mass/Vol] 0.73 mg/dL Normal 0.52-1.25 [facility] Comment on above: Performed By: #### B MP3, HGHCT #### [facility] [address] [place] [address] eGFR OTHER > 90.0 Normal >60 [facility] Comment on above: Result Comment: KDIG O guidelines provide the following GFR categories: Stage GFR(ml/min/1.73 m2) Terms G1 >=90 Normal or high G2 60-89 Mildly decreased* G3a 45-59 Mildly to moderately decreased G3b 30-44 Moderately to severely decreased G4 15-29 Severely decreased G5 <15 Kidney failure *Relative to young adult level. In the absence of evidence of kidney damage, neither GFR category G1 nor G2 fulfill the criteria for CKD. The CKD-EPI equation is validated in individuals 18 years of age and older. Currently the best equation for estimating glomerular filtration rate (GFR) from serum creatinine in children is the Bedside Sorto equation. It is less accurate in patients with extremes of muscle mass, restriction of dietary protein, ingestion of creatine, extra-renal metabolism of creatinine, or treatment with medications that affect renal tubular creatinine secretion. Performed By: #### B MP3, HGHCT #### [facility] [address] [place] [address] GFR/1.73 sq M.predicted among blacks MDRD (S/P/Bld) [Vol rate/Area] mL/min/{1.73_m2} Normal >60 [facility] Comment on above: Performed By: #### B MP3, HGHCT #### [facility] [address] [place] [address] Potassium [Moles/Vol] 4.6 mmol/L Normal 3.5-5.1 [facility] Comment on above: Performed By: #### B MP3, HGHCT #### [facility] [address] [place] [address] Chloride [Moles/Vol] 105 mmol/L Normal 98-107 [facility] Comment on above: Performed By: #### B MP3, HGHCT #### [facility] [address] [place] [address] Sodium [Moles/Vol] 137 mmol/L Normal 135-145 [facility] Comment on above: Performed By: #### B MP3, HGHCT #### [facility] [address] [place] [address] Glucose,Bedsideon 12-23-2021 Glucose [Mass/Vol] 122 mg/dL High 70-100 [facility] Comment on above: Result Comment: Test performed by glucose meter. Results may be 10%-15% lower than serum/plasma values. (CLIA ID [id number]) Performed By: #### B GLU #### [facility] [address] [place] [address] Glucose [Mass/Vol] 107 mg/dL High 70-100 [facility] Comment on above: Result Comment: Test performed by glucose meter. Results may be 10%-15% lower than serum/plasma values. (CLIA ID [id number]) Performed By: #### B GLU #### [facility] [address] [place] [address] Hemoglobin AND Hematocriton 12-23-2021 Hematocrit (Bld) [Volume fraction] 35.7 % Normal 35.0-47.0 [facility] Comment on above: Performed By: #### B MP3, HGHCT #### [facility] [address] [place] [address] Hemoglobin (Bld) [Mass/Vol] 11.8 g/dL Normal 11.7-16.0 [facility] Comment on above: Performed By: #### B MP3, HGHCT #### [facility] [address] [place] [address] Op Noteon 12-23-2021 Op Note Operative Note Patient: Will Jacinto Date of : 1965 Date of Procedure: 12/23/21 Pre-Op Diagnosis: endometrial hyperplasia Post-Op Diagnosis: Same D&C/hysteroscopy [employer] Operator: * Surgery not found * Anesthesia: general Estimated Blood Loss (mL): Minimal Complications: None Specimens: [facility] Implants: * No surgical log found * Drains: * No LDAs found * Findings: No IUD seen Detailed Description of Procedure: Pt taken to OR and placed under general anesthesia. Prepped and draped in the usual fashion. Time out held. Bladder drained with RRC. Weighted spec placed in vagina and anterior lip of cervix grasped with single tooth tenaculum. Uterus sounded to 11cm. Cervix dilated and hysteroscopy inserted. IUD not seen. Some thickened endometrial tissue was seen. Cavity thoroughly curetted and specimen sent. Procedure terminated. Normal [facility] Surgical Pathologyon 022 Surgical Pathology [id number] [facility] PATHOLOG[facility]ORATORY MEDICINE [address] [place] [address] Fax - FINAL SURGICAL PATHOLOGY REPORT NAME: WILL JACINTO : 1965 56 Y F BILLING NO.: [id number] LOCATION: [place] [address] PROCEDURE 12/23/2021 DATE: SURGEON: MICHAEL CUNNINGHAM M.D. RECEIVED 12/23/2021 DATE: ATTENDING: MICHAEL CUNNINGHAM M.D. REPORT DATE: 12/24/2021 COPIES TO: DIAGNOSIS: ENDOMETRIUM, CURETTAGE - INACTIVE CYSTICALLY DILATED ENDOMETRIAL GLANDS AND POLYPOID PORTIONS OF ENDOMETRIUM WITH WEAK EXOGENOUS HORMONE EFFECT. -FOCAL FEATURES SUGGESTIVE OF BENIGN ENDOMETRIAL POLYP. -PORTIONS OF BENIGN MYOMETRIAL SMOOTH MUSCLE. -BENIGN ECTOCERVICAL SQUAMOUS EPITHELIUM. -NEGATIVE FOR HYPERPLASIA OR MALIGNANCY. ARK/ARK Signature> Lester CLOBERT, PhD CLINICAL INFORMATION: N85.02. SPECIMEN: ENDOMETRIAL CURETTINGS GROSS DESCRIPTION: Received in formalin labeled "endocervical curettings" are multiple irregularly-shaped fragments of pink-reddy to red-brown soft tissue and hemorrhagic material aggregating to 1.5 x 1.5 x 0.4 cm. All submitted in one cassette. BSC/LS3 Disclaimer: The following statement applies to all immunohistochemistry, in situ hybridization, molecular studies, and immunofluorescence testing. The use of one or more reagents in the above tests is regulated as an analyte specific reagent (ASR). These tests were developed and their performance characteristics determined by the clinical laboratories of [facility]. They have not been cleared by the US Food and Drug Administration (FDA). The FDA has determined that such clearance or approval is not necessary. All the above immunostains were performed on paraffin embedded tissue. Appropriate positive and negative controls (where applicable) were run in parallel with the patient's specimen; these controls showed expected staining pattern, with acceptable intensity of staining. Immunohistochemical assays have not been validated on decalcified tissues. Results should be interpreted with caution given the raised possibility of false negativity on decalcified specimens. Case reviewed at [place] [address] [place] [address]. DEPARTMENT OF PATHOLOGY AND LABORATORY MEDICINE [place], [place] [address] [email or web address] Normal [facility] Comprehensive Metabolic Pane gigi 12-08-2020 Albumin [Mass/Vol] 4.0 g/dL 3.5 - 5 g/dL [place] ALP [Catalytic activity/Vol] 121 U/L 38 - 126 U/L [place] ALT [Catalytic activity/Vol] 47 U/L High 0 - 34 U/L [place] Comment on above: The ALT test is perf ormed by an updated assay method. Please note that the reference intervals have been changed and are now sex specific. Anion gap [Moles/Vol] 6 mmol/L [place], [place] AST [Catalytic activity/Vol] 25 U/L 15 - 46 U/L [place] Bilirubin Ql (U) 0.6 mg/dL 0.2 - 1.3 mg/dL [place] Calcium [Mass/Vol] 9.7 mg/dL 8.4 - 10. 4 mg/dL [place] Chloride [Moles/Vol] 95 mmol/L Low 98 - 10 7 mmol/L [place] CO2 [Moles/Vol] 30 mmol/L 22 - 30 mmol/L [place] Creatinine [Mass/Vol] 0.64 mg/dL 0.52 - 1.25 mg/dL [place] EGFR IF NonAfrican [place] >90.0 >60 mL/min [place] Comment on above: KDIGO guidelines pro vide the following GFR categories: Stage GFR(ml/min/1.73 m2) Terms G1 >=90 Normal or high G2 60-89 Mildly decreased* G3a 45-59 Mildly to moderately decreased G3b 30-44 Moderately to severely decreased G4 15-29 Severely decreased G5 <15 Kidney failure *Relative to young adult level. In the absence of evidence of kidney damage, neither GFR category G1 nor G2 fulfill the criteria for CKD. The CKD-EPI equation is validated in individuals 18 years of age and older. Currently the best equation for estimating glomerular filtration rate (GFR) from serum creatinine in children is the Bedside Sorto equation. It is less accurate in patients with extremes of muscle mass, restriction of dietary protein, ingestion of creatine, extra-renal metabolism of creatinine, or treatment with medications that affect renal tubular creatinine secretion. GFR/1.73 sq M predicted among blacks MDRD (S/P/Bld) [Vol rate/Area] mL/min/{1.73_m2} >60 mL/min [place] Glucose [Mass/Vol] 248 mg/dL High 70 - 100 mg/dL [place] Interpretation and review of laboratory results Abnormal [place] Potassium [Moles/Vol] 4.7 mmol/L 3.5 - 5.1 mmol/L [place] Protein [Mass/Vol] 6.8 g/dL 6.3 - 8.2 g/dL [place] Sodium [Moles/Vol] 132 mmol/L Low 135 - 145 mmol/L [place] Urea nitrogen [Mass/Vol] 12 mg/dL 7 - 20 mg/dL [place] Hemogram (CBC) w/Auto Diffon 12-08-2020 Absolute Baso # 0.1 10*3/uL 0 - 0.2 10*3/uL [place] Absolute Neut # 6.1 10*3/uL 1.8 - 7 10*3/uL [place] Basophils/100 WBC (Bld) 0.8 % 0 - 2 % [place] Eosinophils (Bld) [#/Vol] 0.1 10*3/uL 0 - 0.5 10*3/uL [place] Eosinophils/100 WBC (Bld) 1.0 % 1 - 6 % [place] Erythrocyte distribution width (RBC) [Ratio] 15.7 % High 11.5 - 14.5 % [place] Granulocytes/100 WBC (Bld) 73.2 % 40 - 80 % [place] Hematocrit (Bld) [Volume fraction] 37.0 % 35 - 47 % [place] Hemoglobin (Bld) [Mass/Vol] 12.3 g/dL 11.7 - 16 g/dL [place] Interpretation and review of laboratory results Abnormal [place] Lymphocytes (Bld) [#/Vol] 1.5 10*3/uL 1 - 4.3 10*3/uL [place] Lymphocytes/100 WBC (Bld) 18.0 % Low 20 - 40 % [place] MCH (RBC) [Entitic mass] 28.6 pg 26 - 34 pg [place] MCHC (RBC) [Mass/Vol] 33.3 % 32 - 36 % [place] MCV (RBC) [Entitic vol] 85.8 fL 79 - 98 fL [place], [place] Monocytes (Bld) [#/Vol] 0.6 10*3/uL 0 - 0.8 10*3/uL [place] Monocytes/100 WBC (Bld) 7.0 % 2 - 10 % [place], [place] Platelet mean volume (Bld) [Entitic vol] 7.9 fL 7.4 - 10.4 fL [place] Platelets (Bld) [#/Vol] 382 10*3/uL 140 - 440 10*3/uL [place] RBC (Bld) [#/Vol] 4.32 10*6/uL 3.8 - 5.2 10*6/uL [place] WBC (Bld) [#/Vol] 8.4 10*3/uL 3.6 - 10.7 10*3/uL [place] Test Performed by [facility], [address] [place], [address] Lipaseon 12-08-2020 Lipase [Catalytic activity/Vol] 45 U/L 23 - 300 U/L [place] Otheron 12-08-2020 Test Performed by [facility], [address] [place], [address] Troponinon 12-08-2020 Troponin I.cardiac [Mass/Vol] ng/mL 0 - 0.034 ng/mL [place] Comment on above: . Test Performed by [facility], [address] [place], [address] US ABDOMEN LIMITED Specify o rgan? GALLBLADDERon 12-08-2020 Robert, [facility] In[facility] - 12/08/2020 4:26 PM EST Patient Name: WILL JACINTO Ultrasound ACCESSION EXAM DATE/TIME PROCEDURE ORDERING PROVIDER [id number] 12/08/2020 16:22 EST US Abdomen Limited [id number] SHEIKH CPT code 81343 Reason For Exam (US Abdomen Limited) abd pain/vomiting Report Ultrasound right upper quadrant HISTORY: Abdominal pain Fatty infiltration of the liver. The gallbladder is normal. No gallstones. Common bile duct has a normal diameter 1.5 mm. Pancreas is normal. Right kidney measures 11.7 x 5.7 x 5.6 cm. The right kidney is normal. IMPRESSION: Fatty infiltration of the liver. Report Dictated on Workstation: [id number] --- Final --- Dictating Physician: MD BAUMANN MALAY Signed Date and Time: 12/08/2020 4:25 pm Signed by: MD BAUMANN MALAY Transcribed Date and Time: 12/08/2020 4:26 [place] Patient Name: WILL JACINTO Ultrasound ACCESSION EXAM DATE/TIME PROCEDURE ORDERING PROVIDER [id number] 12/08/2020 16:22 EST US Abdomen Limited ART OWEN CPT code 27320 Reason For Exam (US Abdomen Limited) abd pain/vomiting Report Ultrasound right upper quadrant HISTORY: Abdominal pain Fatty infiltration of the liver. The gallbladder is normal. No gallstones. Common bile duct has a normal diameter 1.5 mm. Pancreas is normal. Right kidney measures 11.7 x 5.7 x 5.6 cm. The right kidney is normal. IMPRESSION: Fatty infiltration of the liver. Report Dictated on Workstation: [email or web address] --- Final --- Dictating Physician: MD BAUMANN MALAY Signed Date and Time: 12/08/2020 4:25 pm Signed by: MD BAUMANN MALAY Transcribed Date and Time: 12/08/2020 4:26 [place] Urinalysison 12-08-2020 Appearance (U) Turbid Abnormal Clear NA [place] Comment on above: . Bacteria, UA Moderate Abnormal Negative /[HPF] [place] Comment on above: . Bilirubin Urine Negative Negative mg/dL [place] Comment on above: . Color (U) Yellow Lt. Yellow NA [place] Comment on above: . Glucose, Ur 500 mg/dL Abnormal Normal (<70) [place] Comment on above: . Hyaline Casts, UA 3-5 Abnormal Negative /[LPF] [place] Comment on above: . Interpretation and review of laboratory results Abnormal [place] Ketones Ql (U) Negative Negative mg/dL [place] Comment on above: . LEUKOCYTES, UA 250 Abnormal Negative Kat/uL [place] Comment on above: . Mucous Threads Few Negative /[LPF] [place] Comment on above: . Nitrite, Urine Negative Negative NA [place] Comment on above: . Occult Blood,Urine 1.0 mg/dL Abnormal Negative [place] Comment on above: . pH (U) 7.0 [pH] [place] Comment on above: . Protein (U) [Mass/Vol] 50 mg/dL Abnormal Negative [place] Comment on above: . RBC (U) [#/Vol] /uL Abnormal 0 - 2 /[HPF] [place] Comment on above: . Specific Kenna, Urine 1.022 M [place], [place] Comment on above: . Squam Epithel, UA 3-5 3 - 5 /[HPF] [place] Comment on above: . Urobilinogen, Urine 4 mg/dL Abnormal Normal (0-1) [place] Comment on above: . WBC, UA 51-100 Abnormal 0 - 5 /[HPF] [place] Comment on above: . Test Performed by [facility], [address] [place], [place] [address] Urine microscopic confirmed via light microscopy. [place] XR CHEST PORTABLEon 12-08-19 Patient Name: WILL ALVARADO Diagnostic Radiology ACCESSION EXAM DATE/TIME PROCEDURE ORDERING PROVIDER [id number] 12/08/2020 16:00 EST CR Chest Portable [id number] ART BROOKS CPT code 04791 Reason For Exam (CR Chest Portable) chest pain Report CHEST CLINICAL INDICATION: Chest pain TECHNIQUE: AP COMPARISON: 11/22/2020 FINDINGS: The heart and mediastinum are normal. There is no evidence of a pneumothorax or pleural effusion. Mild left basilar atelectasis. Degenerative changes are noted within the thoracic spine. IMPRESSION: Mild left basilar atelectasis. Report Dictated on --- Final --- Dictating Physician: DO ARREOLA RACHEL Signed Date and Time: 12/08/2020 4:20 pm Signed by: DO ARREOLA RACHEL Transcribed Date and Time: 12/08/2020 4:22 [place] Nati Jones Incoming [facility] - 12/08/2020 4:22 PM EST Patient Name: WILL JACINTO Diagnostic Radiology ACCESSION EXAM DATE/TIME PROCEDURE ORDERING PROVIDER [id number] 12/08/2020 16:00 EST CR Chest Portable ART OWEN CPT code 95971 Reason For Exam (CR Chest Portable) chest pain Report CHEST CLINICAL INDICATION: Chest pain TECHNIQUE: AP COMPARISON: 11/22/2020 FINDINGS: The heart and mediastinum are normal. There is no evidence of a pneumothorax or pleural effusion. Mild left basilar atelectasis. Degenerative changes are noted within the thoracic spine. IMPRESSION: Mild left basilar atelectasis. Report Dictated on --- Final --- Dictating Physician: DO ARREOLA RACHEL Signed Date and Time: 12/08/2020 4:20 pm Signed by: DO ARREOLA RACHEL Transcribed Date and Time: 12/08/2020 4:22 [place] CR Abdomen APon 11-28-2020 CR Abdomen AP Patient Name: WILL ALVARADO Diagnostic Radiology ACCESSION EXAM DATE/TIME PROCEDURE ORDERING PROVIDER [id number] 11/28/2020 09:00 EST CR Abdomen AP MD JD, CHAU CPT code 09362 Reason For Exam (CR Abdomen AP) ileus Report Abdomen: 11/28/2020. Clinical Information: Ileus. Findings: A single supine view of the abdomen reveals a nonspecific nonobstructive bowel gas pattern. There is no evidence of organomegaly. No abnormal calcifications are seen. The visualized bony structures are intact. Impression: Non specific radiographs of the abdomen. Report Dictated on Final Dictated: 11/28/2020 9:25 am Dictating Physician: MD ALLEN RISA Signed Date and Time: 11/28/2020 9:25 am Signed by: MD ALLEN RISA Transcribed Date and Time: 11/28/2020 9:25 Normal [facility] Comp Metabolic Panelon 11-28 ALT [Catalytic activity/Vol] 30 U/L Normal 0-34 [facility] Comment on above: Result Comment: The ALT test is performed by an updated assay method. Please note that the reference intervals have been changed and are now sex specific. Performed By: #### C MP3 #### [facility] [address] [place], [place] Calcium [Mass/Vol] 8.7 mg/dL Normal 8.4-10.4 [facility] Comment on above: Performed By: #### C MP3 #### [facility] [address] [place], [place] Glucose [Mass/Vol] 100 mg/dL Normal 70-100 [facility] Comment on above: Performed By: #### C MP3 #### [facility] [address] [place], [place] ALP [Catalytic activity/Vol] 77 U/L Normal 38-126 [facility] Comment on above: Result Comment: Slig htly hemolysed, interpret with caution. Performed By: #### C MP3 #### [facility] [address] [place], [place] Anion gap [Moles/Vol] 5 Normal [facility] Comment on above: Performed By: #### C MP3 #### [facility] [address] [place], [place] AST [Catalytic activity/Vol] 26 U/L Normal 15-46 [facility] Comment on above: Result Comment: Slig htly hemolysed, interpret with caution. Performed By: #### C MP3 #### [facility] [address] [place], [place] Bilirubin [Mass/Vol] 0.6 mg/dL Normal 0.2-1.3 [facility] Comment on above: Performed By: #### C MP3 #### [facility] [address] [place], [place] CO2 [Moles/Vol] 25 mmol/L Normal 22-30 [facility] Comment on above: Performed By: #### C MP3 #### [facility] [address] [place], [place] Creatinine [Mass/Vol] 0.66 mg/dL Normal 0.52-1.25 [facility] Comment on above: Performed By: #### C MP3 #### [facility] [address] [place], [place] GFR/1.73 sq M predicted among blacks MDRD (S/P/Bld) [Vol rate/Area] mL/min/{1.73_m2} Normal >60 [facility] Comment on above: Performed By: #### C MP3 #### [place] [address] [place], [place] GFR/1.73 sq M predicted among non-blacks MDRD (S/P/Bld) [Vol rate/Area] mL/min/{1.73_m2} Normal >60 [facility] Comment on above: Result Comment: KDIG O guidelines provide the following GFR categories: Stage GFR(ml/min/1.73 m2) Terms G1 >=90 Normal or high G2 60-89 Mildly decreased* G3a 45-59 Mildly to moderately decreased G3b 30-44 Moderately to severely decreased G4 15-29 Severely decreased G5 <15 Kidney failure *Relative to young adult level. In the absence of evidence of kidney damage, neither GFR category G1 nor G2 fulfill the criteria for CKD. The CKD-EPI equation is validated in individuals 18 years of age and older. Currently the best equation for estimating glomerular filtration rate (GFR) from serum creatinine in children is the Bedside Sorto equation. It is less accurate in patients with extremes of muscle mass, restriction of dietary protein, ingestion of creatine, extra-renal metabolism of creatinine, or treatment with medications that affect renal tubular creatinine secretion. Performed By: #### C MP3 #### [facility] [address] [place], [place] Protein [Mass/Vol] 6.0 g/dL Low 6.3-8.2 [facility] Comment on above: Performed By: #### C MP3 #### [place] [address] [place], [place] Urea nitrogen [Mass/Vol] 10 mg/dL Normal 7-20 [facility] Comment on above: Performed By: #### C MP3 #### [place] [address] [place], [place] Potassium [Moles/Vol] 4.3 mmol/L Normal 3.5-5.1 [facility] Comment on above: Result Comment: Slig htly hemolysed, interpret with caution. Performed By: #### C MP3 #### [facility] [address] [place], [place] Sodium [Moles/Vol] 134 mmol/L Low 135-145 [facility] Comment on above: Performed By: #### C MP3 #### [facility] [address] [place], [place] Albumin [Mass/Vol] 3.3 g/dL Low 3.5-5.0 [facility] Comment on above: Performed By: #### C MP3 #### [facility] [address] [place], [place] Chloride [Moles/Vol] 105 mmol/L Normal 98-107 [facility] Comment on above: Performed By: #### C MP3 #### [facility] [address] [place], [place] Comprehensive Metabolic Pane gigi 11-28-2020 Albumin [Mass/Vol] 3.3 g/dL Low 3.5 - 5 g/dL [place] ALP [Catalytic activity/Vol] 77 U/L 38 - 126 U/L [place] Comment on above: Slightly hemolysed, interpret with caution. ALT [Catalytic activity/Vol] 30 U/L 0 - 34 U/L [place] Comment on above: The ALT test is perf ormed by an updated assay method. Please note that the reference intervals have been changed and are now sex specific. Anion gap [Moles/Vol] 5 mmol/L [place] AST [Catalytic activity/Vol] 26 U/L 15 - 46 U/L [place] Comment on above: Slightly hemolysed, interpret with caution. Bilirubin Ql (U) 0.6 mg/dL 0.2 - 1.3 mg/dL [place] Calcium [Mass/Vol] 8.7 mg/dL 8.4 - 10. 4 mg/dL [place] Chloride [Moles/Vol] 105 mmol/L 98 - 10 7 mmol/L [place] CO2 [Moles/Vol] 25 mmol/L 22 - 30 mmol/L [place] Creatinine [Mass/Vol] 0.66 mg/dL 0.52 - 1.25 mg/dL [place] EGFR IF NonAfrican [place] >90.0 >60 mL/min [place] Comment on above: KDIGO guidelines pro vide the following GFR categories: Stage GFR(ml/min/1.73 m2) Terms G1 >=90 Normal or high G2 60-89 Mildly decreased* G3a 45-59 Mildly to moderately decreased G3b 30-44 Moderately to severely decreased G4 15-29 Severely decreased G5 <15 Kidney failure *Relative to young adult level. In the absence of evidence of kidney damage, neither GFR category G1 nor G2 fulfill the criteria for CKD. The CKD-EPI equation is validated in individuals 18 years of age and older. Currently the best equation for estimating glomerular filtration rate (GFR) from serum creatinine in children is the Bedside Sorto equation. It is less accurate in patients with extremes of muscle mass, restriction of dietary protein, ingestion of creatine, extra-renal metabolism of creatinine, or treatment with medications that affect renal tubular creatinine secretion. GFR/1.73 sq M predicted among blacks MDRD (S/P/Bld) [Vol rate/Area] mL/min/{1.73_m2} >60 mL/min [place] Glucose [Mass/Vol] 100 mg/dL 70 - 100 mg/dL [place] Interpretation and review of laboratory results Abnormal [place] Potassium [Moles/Vol] 4.3 mmol/L 3.5 - 5.1 mmol/L [place] Comment on above: Slightly hemolysed, interpret with caution. Protein [Mass/Vol] 6.0 g/dL Low 6.3 - 8.2 g/dL [place] Sodium [Moles/Vol] 134 mmol/L Low 135 - 145 mmol/L [place] Urea nitrogen [Mass/Vol] 10 mg/dL 7 - 20 mg/dL [place] Test Performed by [facility], [address] [place] [id number] [place] Glucose,Bedsideon 11-28-2020 Glucose [Mass/Vol] 111 mg/dL High 70-100 [facility] Comment on above: Result Comment: Test performed by glucose meter. Results may be 10%-15% lower than serum/plasma values. (CLIA ID [id number]) Performed By: #### B GLU #### [facility] [address] [place] [address] Glucose [Mass/Vol] 166 mg/dL High 70-100 [facility] Comment on above: Result Comment: Test performed by glucose meter. Results may be 10%-15% lower than serum/plasma values. (CLIA ID [id number]) Performed By: #### B GLU #### [facility] [address] [place] [address] Glucose [Mass/Vol] 215 mg/dL High 70-100 [facility] Comment on above: Result Comment: Test performed by glucose meter. Results may be 10%-15% lower than serum/plasma values. (CLIA ID [id number]) Performed By: #### B GLU #### [facility] [address] [place] [address] POCT Glucoseon 11-28-2020 Glucose [Mass/Vol] 111 mg/dL High 70 - 100 mg/dL [place] Comment on above: Test performed by gl ucose meter. Results may be 10%-15% lower than serum/plasma values. (CLIA ID [id number]) Interpretation and review of laboratory results Abnormal [facility] [place] Test Performed by [facility], [facility] [place] [address] [place] Glucose [Mass/Vol] 166 mg/dL High 70 - 100 mg/dL [place] Comment on above: Test performed by gl ucose meter. Results may be 10%-15% lower than serum/plasma values. (CLIA ID [id number]) Interpretation and review of laboratory results Abnormal [facility] [place] [place] Test Performed by [facility], [address] [place] [address] [facility], [place] Glucose [Mass/Vol] 215 mg/dL High 70 - 100 mg/dL [place] Comment on above: Test performed by gl ucose meter. Results may be 10%-15% lower than serum/plasma values. (CLIA ID [id number]) Interpretation and review of laboratory results Abnormal [place] Test Performed by [facility], [facility], [place] [address] [place], [place] Surgical Pathologyon 021 Sodium [Moles/Vol] SEE BELOW [place], [place] 1 [id number] [facility] PATHOLOGY AND LABORATORY MEDICINE [address] [place] [address] [phone] FINAL SURGICAL PATHOLOGY REPORT NAME: WILL JACINTO : 1965 55 Y F BILLING NO.: [id number] LOCATION: [address] [place] [address] 01 PROCEDURE 11/26/2020 DATE: SURGEON: VIRGIL MARSHALL M.D. RECEIVED 11/26/2020 DATE: ATTENDING: GABO ESTRADA III, MD REPORT DATE: 11/28/2020 COPIES TO: DIAGNOSIS: ENDOMETRIAL CURETTINGS - POLYPOID FRAGMENTS OF ENDOMETRIAL TISSUE WITH MARKED STROMAL CHANGES CONSISTENT WITH EXOGENOUS HORMONE THERAPY EFFECT INACTIVE GLANDS WITH MILD GLANDULAR CROWDING, SEE COMMENT. Comment: Most of the endometrial tissue shows inactive glands with abundant decidualized stroma. Focally, there is glandular crowding. Patient's history of complex atypical hyperplasia is noted. The current biopsy is not have sufficient morphologic changes for the diagnosis of residual atypical hyperplasia. Follow-up and rebiopsy recommended. NM/NM Signature> ALLEN JERRY M.D. CLINICAL INFORMATION: Not provided SPECIMEN: ENDOMETRIAL CURETTINGS GROSS DESCRIPTION: Received in formalin labeled "endometrial curettings" attached to two segments of telfa are multiple, hemorrhagic segments of reddy tissue which aggregate to 3 x 3 cm. Specimen is filtered and entirely submitted into three cassettes. JCK/JAF Disclaimer: The following statement applies to all immunohistochemistry, in situ hybridization, molecular studies, and immunofluorescence testing. The use of one or more reagents in the above tests is regulated as an analyte specific reagent (ASR). These tests were developed and their performance characteristics determined by the clinical laboratories of [facility]. They have not been cleared by the US Food and Drug Administration (FDA). The FDA has determined that such clearance or approval is not necessary. All the above immunostains were performed on paraffin embedded tissue. Appropriate positive and negative controls (where applicable) were run in parallel with the patient's specimen; these controls showed expected staining pattern, with acceptable intensity of staining. Immunohistochemical assays have not been validated on decalcified tissues. Results should be interpreted with caution given the raised possibility of false negativity on decalcified specimens. Professional Performing Location: [place] [address] [place] [address]. DEPARTMENT OF PATHOLOGY AND LABORATORY MEDICINE [place], [place] [address] [place] XR ABDOMEN (KUB) (SINGLE AP VIEW)on 11-28-[address] [facility], [facility] Incoming Radiology Results From [facility] - 11/28/2020 9:26 AM EST Patient Name: WILL JACINTO Diagnostic Radiology ACCESSION EXAM DATE/TIME PROCEDURE ORDERING PROVIDER [id number] 11/28/2020 09:00 EST CR Abdomen AP MD MARTIN KHALED CPT code 65360 Reason For Exam (CR Abdomen AP) ileus Report Abdomen: 11/28/2020. Clinical Information: Ileus. Findings: A single supine view of the abdomen reveals a nonspecific nonobstructive bowel gas pattern. There is no evidence of organomegaly. No abnormal calcifications are seen. The visualized bony structures are intact. Impression: Non specific radiographs of the abdomen. Report Dictated on --- Final --- Dictated: 11/28/2020 9:25 am Dictating Physician: MD ALLEN RISA Signed Date and Time: 11/28/2020 9:25 am Signed by: MD ALLEN RISA Transcribed Date and Time: 11/28/2020 9:25 [place] Patient Name: WILL ALVARADO Diagnostic Radiology ACCESSION EXAM DATE/TIME PROCEDURE ORDERING PROVIDER [id number] 11/28/2020 09:00 EST CR Abdomen AP MD MARTIN KHALED CPT code 03870 Reason For Exam (CR Abdomen AP) ileus Report Abdomen: 11/28/2020. Clinical Information: Ileus. Findings: A single supine view of the abdomen reveals a nonspecific nonobstructive bowel gas pattern. There is no evidence of organomegaly. No abnormal calcifications are seen. The visualized bony structures are intact. Impression: Non specific radiographs of the abdomen. Report Dictated on --- Final --- Dictated: 11/28/2020 9:25 am Dictating Physician: MD ALLEN RISA Signed Date and Time: 11/28/2020 9:25 am Signed by: MD ALLEN RISA Transcribed Date and Time: 11/28/2020 9:25 [place] CR Abdomen APon 11-27-2020 CR Abdomen AP Patient Name: WILL ALVARADO Diagnostic Radiology ACCESSION EXAM DATE/TIME PROCEDURE ORDERING PROVIDER [id number] 11/27/2020 08:28 EST CR Abdomen AP MD JD, CHAU CPT code 75601 Reason For Exam (CR Abdomen AP) ileus Report ABDOMEN -1 VIEW: CLINICAL INDICATION: Ileus TECHNIQUE: 1 view of abdomen and pelvis COMPARISON: November 25, 2020 FINDINGS: Overall interval decrease in the amount of large and small bowel gas, which is in a nonobstructed pattern. No abnormal soft tissue calcifications are identified. Multilevel thoracolumbar degenerative change. IMPRESSION: Overall interval decrease in the amount of large and small bowel gas, which is in a nonobstructed pattern. Report Dictated on Final Dictated: 11/27/2020 8:38 am Dictating Physician: MD HILL JASON Signed Date and Time: 11/27/2020 8:40 am Signed by: MD HILL JASON Transcribed Date and Time: 11/27/2020 8:38 Normal [facility] Comp Metabolic Panelon 11-27 ALP [Catalytic activity/Vol] 97 U/L Normal 38-126 [facility] Comment on above: Performed By: #### C MP3 #### [facility] [address] [place], [place] ALT [Catalytic activity/Vol] 34 U/L Normal 0-34 [facility] Comment on above: Result Comment: The ALT test is performed by an updated assay method. Please note that the reference intervals have been changed and are now sex specific. Performed By: #### C MP3 #### [facility] [address] [place], [place] Anion gap [Moles/Vol] 6 Normal [facility] Comment on above: Performed By: #### C MP3 #### [facility] [address] [place], [place] AST [Catalytic activity/Vol] 26 U/L Normal 15-46 [facility] Comment on above: Performed By: #### C MP3 #### [facility] [address] [place], [place] Bilirubin [Mass/Vol] 0.6 mg/dL Normal 0.2-1.3 [facility] Comment on above: Performed By: #### C MP3 #### [facility] [address] [place] [facility] [address] Calcium [Mass/Vol] 8.2 mg/dL Low 8.4-10.4 [facility] Comment on above: Performed By: #### C MP3 #### [facility] [address] [place] [address] CO2 [Moles/Vol] 21 mmol/L Low 22-30 [facility] Comment on above: Performed By: #### C MP3 #### [facility] [address] [place] [facility] [address] Glucose [Mass/Vol] 225 mg/dL High 70-100 [facility] Comment on above: Performed By: #### C MP3 #### [facility] [address] [place] [place] [address] Protein [Mass/Vol] 6.1 g/dL Low 6.3-8.2 [facility] Comment on above: Performed By: #### C MP3 #### [facility] [address] [place] [address] Urea nitrogen [Mass/Vol] 13 mg/dL Normal 7-20 [facility] Comment on above: Performed By: #### C MP3 #### [facility] [address] [place] [place] [address] Creatinine [Mass/Vol] 0.57 mg/dL Normal 0.52-1.25 [facility] Comment on above: Performed By: #### C MP3 #### [facility] [address] [place] [facility] [place] [address] GFR/1.73 sq M predicted among blacks MDRD (S/P/Bld) [Vol rate/Area] mL/min/{1.73_m2} Normal >60 [facility] Comment on above: Performed By: #### C MP3 #### [facility] [address] [place] [place] [address] GFR/1.73 sq M predicted among non-blacks MDRD (S/P/Bld) [Vol rate/Area] mL/min/{1.73_m2} Normal >60 [facility] Comment on above: Result Comment: KDIG O guidelines provide the following GFR categories: Stage GFR(ml/min/1.73 m2) Terms G1 >=90 Normal or high G2 60-89 Mildly decreased* G3a 45-59 Mildly to moderately decreased G3b 30-44 Moderately to severely decreased G4 15-29 Severely decreased G5 <15 Kidney failure *Relative to young adult level. In the absence of evidence of kidney damage, neither GFR category G1 nor G2 fulfill the criteria for CKD. The CKD-EPI equation is validated in individuals 18 years of age and older. Currently the best equation for estimating glomerular filtration rate (GFR) from serum creatinine in children is the Bedside Sorto equation. It is less accurate in patients with extremes of muscle mass, restriction of dietary protein, ingestion of creatine, extra-renal metabolism of creatinine, or treatment with medications that affect renal tubular creatinine secretion. Performed By: #### C MP3 #### [place] [address] [place], [place] Albumin [Mass/Vol] 3.3 g/dL Low 3.5-5.0 [facility] Comment on above: Performed By: #### C MP3 #### [place] [address] [place], [place] Chloride [Moles/Vol] 104 mmol/L Normal 98-107 [facility] Comment on above: Performed By: #### C MP3 #### [facility] [address] [place], [place] Potassium [Moles/Vol] 4.2 mmol/L Normal 3.5-5.1 [facility] Comment on above: Performed By: #### C MP3 #### [facility] [address] [place], [place] Sodium [Moles/Vol] 132 mmol/L Low 135-145 [facility] Comment on above: Performed By: #### C MP3 #### [facility] [address] [place], [place] Comprehensive Metabolic Pane gigi 11-27-2020 Albumin [Mass/Vol] 3.3 g/dL Low 3.5 - 5 g/dL [place] ALP [Catalytic activity/Vol] 97 U/L 38 - 126 U/L [place] ALT [Catalytic activity/Vol] 34 U/L 0 - 34 U/L [place] Comment on above: The ALT test is perf ormed by an updated assay method. Please note that the reference intervals have been changed and are now sex specific. Anion gap [Moles/Vol] 6 mmol/L [place], [place] AST [Catalytic activity/Vol] 26 U/L 15 - 46 U/L [place] Bilirubin Ql (U) 0.6 mg/dL 0.2 - 1.3 mg/dL [place] Calcium [Mass/Vol] 8.2 mg/dL Low 8.4 - 10. 4 mg/dL [place] Chloride [Moles/Vol] 104 mmol/L 98 - 10 7 mmol/L [place] CO2 [Moles/Vol] 21 mmol/L Low 22 - 30 mmol/L [place] Creatinine [Mass/Vol] 0.57 mg/dL 0.52 - 1.25 mg/dL [place] EGFR IF NonAfrican [place] >90.0 >60 mL/min [place] Comment on above: KDIGO guidelines pro vide the following GFR categories: Stage GFR(ml/min/1.73 m2) Terms G1 >=90 Normal or high G2 60-89 Mildly decreased* G3a 45-59 Mildly to moderately decreased G3b 30-44 Moderately to severely decreased G4 15-29 Severely decreased G5 <15 Kidney failure *Relative to young adult level. In the absence of evidence of kidney damage, neither GFR category G1 nor G2 fulfill the criteria for CKD. The CKD-EPI equation is validated in individuals 18 years of age and older. Currently the best equation for estimating glomerular filtration rate (GFR) from serum creatinine in children is the Bedside Sorto equation. It is less accurate in patients with extremes of muscle mass, restriction of dietary protein, ingestion of creatine, extra-renal metabolism of creatinine, or treatment with medications that affect renal tubular creatinine secretion. GFR/1.73 sq M predicted among blacks MDRD (S/P/Bld) [Vol rate/Area] mL/min/{1.73_m2} >60 mL/min [place] Glucose [Mass/Vol] 225 mg/dL High 70 - 100 mg/dL [place] Interpretation and review of laboratory results Abnormal [place] Potassium [Moles/Vol] 4.2 mmol/L 3.5 - 5.1 mmol/L [place] Protein [Mass/Vol] 6.1 g/dL Low 6.3 - 8.2 g/dL [place] Sodium [Moles/Vol] 132 mmol/L Low 135 - 145 mmol/L [place] Urea nitrogen [Mass/Vol] 13 mg/dL 7 - 20 mg/dL [place] Test Performed by [facility], [address] [place] [id number] [place] [address] EKG 12 Leadon 11-27-[address] [facility], [facility] Incoming Cardiology [facility] 10:03 AM EST [facility] Test Date: 2020-11-26 Pat Name: Will Jacinto Department: 1A7E Room: 1714 Gender: F Binder Operator: SARAN : 1965 Requested By: GABO ESTRADA Order Number: [id number] Reading MD: Jelena Davidson Measurements Intervals [place] Rate: 85 P: 38 NM: 159 QRS: -39 QRSD: 105 T: 29 QT: 382 QTc: 455 Interpretive Statements Sinus rhythm Left ventricular hypertrophy Anterior Q waves, possibly due to LVH Electronically Signed On 11-27-2020 10:02:38 EST by Jelena Davidson [facility] Test Date: 2020-11-26 Pat Name: Will Jacinto Department: 1A7E Room: 1714 Gender: F Binder Operator: SARAN : 1965 Requested By: GABO ESTRADA Order Number: [id number] Reading : Jelena Davidson Measurements Intervals [place] Rate: 85 P: 38 NM: 159 QRS: -39 QRSD: 105 T: 29 QT: 382 QTc: 455 Interpretive Statements Sinus rhythm Left ventricular hypertrophy Anterior Q waves, possibly due to LVH Electronically Signed On 11-27-2020 10:02:38 EST by Jelena [facility], [place] Glucose, Bedsideon Confirmation see below Normal [facility] Comment on above: Result Comment: No c onfirmation received. Performed By: #### B GLU #### [facility] [employer] [address] [place] [address] Glucose [Mass/Vol] mg/dL High 70-100 [facility] Comment on above: Result Comment: Test performed by glucose meter. Results may be 10%-15% lower than serum/plasma values. (CLIA ID [id number]) Performed By: #### B GLU #### [facility] [address] [place] [address] Glucose,Bedsideon 11-27-2020 Glucose [Mass/Vol] 91 mg/dL Normal 70-100 [facility] Comment on above: Result Comment: Test performed by glucose meter. Results may be 10%-15% lower than serum/plasma values. (CLIA ID [id number]) Performed By: #### B GLU #### [facility] [employer] [address] [place] [address] Glucose [Mass/Vol] 134 mg/dL High 70-100 [facility] Comment on above: Result Comment: Test performed by glucose meter. Results may be 10%-15% lower than serum/plasma values. (CLIA ID [id number]) Performed By: #### B GLU #### [facility] [employer] [address] [place] [address] Glucose [Mass/Vol] 205 mg/dL High 70-100 [facility] Comment on above: Result Comment: Test performed by glucose meter. Results may be 10%-15% lower than serum/plasma values. (CLIA ID [id number]) Performed By: #### B GLU #### [facility] [employer] [address] [place] [address] Glucose [Mass/Vol] 223 mg/dL High 70-100 [facility] Comment on above: Result Comment: Test performed by glucose meter. Results may be 10%-15% lower than serum/plasma values. (CLIA ID [id number]) Performed By: #### B GLU #### [facility] [address] [place] [address] POC Glucose, Whole Bloodon 0 11-27-2020 Glucose [Mass/Vol] mg/dL High 70 - 100 mg/dL [place] Comment on above: Test performed by gl ucose meter. Results may be 10%-15% lower than serum/plasma values. (CLIA ID [id number]) Interpretation and review of laboratory results Abnormal [place] Sodium [Moles/Vol] see below [place] Comment on above: No confirmation rece ived. Test Performed by [facility], [place] [address] [place] POCT Glucoseon 11-27-2020 Glucose [Mass/Vol] 91 mg/dL 70 - 100 mg/dL [place] Comment on above: Test performed by gl ucose meter. Results may be 10%-15% lower than serum/plasma values. (CLIA ID [id number]) Test Performed by [facility], [place] [address] [place] Glucose [Mass/Vol] 134 mg/dL High 70 - 100 mg/dL [place] Comment on above: Test performed by gl ucose meter. Results may be 10%-15% lower than serum/plasma values. (CLIA ID [id number]) Interpretation and review of laboratory results Abnormal [place] Test Performed by [facility], [place] [address] [place] Glucose [Mass/Vol] 205 mg/dL High 70 - 100 mg/dL [place] Comment on above: Test performed by gl ucose meter. Results may be 10%-15% lower than serum/plasma values. (CLIA ID [id number]) Interpretation and review of laboratory results Abnormal [place] Test Performed by [facility], [address] [place] [address] [place] Glucose [Mass/Vol] 223 mg/dL High 70 - 100 mg/dL [place] Comment on above: Test performed by gl ucose meter. Results may be 10%-15% lower than serum/plasma values. (CLIA ID [id number]) Interpretation and review of laboratory results Abnormal [place] Test Performed by [facility], [address] [place] [address] [place] XR ABDOMEN (KUB) (SINGLE AP VIEW)on 11-27-2020 Patient Name: WILL ALVARADO Diagnostic Radiology ACCESSION EXAM DATE/TIME PROCEDURE ORDERING PROVIDER [id number] 11/27/2020 08:28 EST CR Abdomen AP MD MARTIN KHALED CPT code 48118 Reason For Exam (CR Abdomen AP) ileus Report ABDOMEN -1 VIEW: CLINICAL INDICATION: Ileus TECHNIQUE: 1 view of abdomen and pelvis COMPARISON: November 25, 2020 FINDINGS: Overall interval decrease in the amount of large and small bowel gas, which is in a nonobstructed pattern. No abnormal soft tissue calcifications are identified. Multilevel thoracolumbar degenerative change. IMPRESSION: Overall interval decrease in the amount of large and small bowel gas, which is in a nonobstructed pattern. Report Dictated on --- Final --- Dictated: 11/27/2020 8:38 am Dictating Physician: MD HILL JASON Signed Date and Time: 11/27/2020 8:40 am Signed by: MD HILL JASON Transcribed Date and Time: 11/27/2020 8:38 [place] Incoming [facility] - 11/27/2020 8:41 AM EST Patient Name: WILL JACINTO Diagnostic Radiology ACCESSION EXAM DATE/TIME PROCEDURE ORDERING PROVIDER [id number] 11/27/2020 08:28 EST CR Abdomen AP MD MARTIN KHALED CPT code 06789 Reason For Exam (CR Abdomen AP) ileus Report ABDOMEN -1 VIEW: CLINICAL INDICATION: Ileus TECHNIQUE: 1 view of abdomen and pelvis COMPARISON: November 25, 2020 FINDINGS: Overall interval decrease in the amount of large and small bowel gas, which is in a nonobstructed pattern. No abnormal soft tissue calcifications are identified. Multilevel thoracolumbar degenerative change. IMPRESSION: Overall interval decrease in the amount of large and small bowel gas, which is in a nonobstructed pattern. Report Dictated on --- Final --- Dictated: 11/27/2020 8:38 am Dictating Physician: MD HILL JASON Signed Date and Time: 11/27/2020 8:40 am Signed by: MD HILL JASON Transcribed Date and Time: 11/27/2020 8:38 [facility] Metabolic Panelon 11-26 ALP [Catalytic activity/Vol] 88 U/L Normal 38-126 [facility] Comment on above: Performed By: #### B GLU #### [facility] [address] [place], [place] ALT [Catalytic activity/Vol] 33 U/L Normal 0-34 [facility] Comment on above: Result Comment: The ALT test is performed by an updated assay method. Please note that the reference intervals have been changed and are now sex specific. Performed By: #### B GLU #### [facility] [address] [place], [place] Calcium [Mass/Vol] 8.9 mg/dL Normal 8.4-10.4 [facility] Comment on above: Performed By: #### B GLU #### [facility] [address] [place], [place] Glucose [Mass/Vol] 188 mg/dL High 70-100 [facility] Comment on above: Performed By: #### B GLU #### [facility] [address] [place], [place] Urea nitrogen [Mass/Vol] 10 mg/dL Normal 7-20 [facility] Comment on above: Performed By: #### B GLU #### [facility] [address] [place], [place] Anion gap [Moles/Vol] 7 Normal [facility] Comment on above: Performed By: #### B GLU #### [facility] [address] [place], [place] AST [Catalytic activity/Vol] 29 U/L Normal 15-46 [facility] Comment on above: Performed By: #### B GLU #### [facility] [address] [place], [place] Bilirubin [Mass/Vol] 0.5 mg/dL Normal 0.2-1.3 [facility] Comment on above: Performed By: #### B GLU #### [facility] [address] [place], [place] CO2 [Moles/Vol] 25 mmol/L Normal 22-30 [facility] Comment on above: Performed By: #### B GLU #### [facility] [address] [place], [place] Creatinine [Mass/Vol] 0.63 mg/dL Normal 0.52-1.25 [facility] Comment on above: Performed By: #### B GLU #### [facility] [address] [place], [place] GFR/1.73 sq M predicted among blacks MDRD (S/P/Bld) [Vol rate/Area] mL/min/{1.73_m2} Normal >60 [facility] Comment on above: Performed By: #### B GLU #### [facility] [address] [place], [place] GFR/1.73 sq M predicted among non-blacks MDRD (S/P/Bld) [Vol rate/Area] mL/min/{1.73_m2} Normal >60 [facility] Comment on above: Result Comment: KDIG O guidelines provide the following GFR categories: Stage GFR(ml/min/1.73 m2) Terms G1 >=90 Normal or high G2 60-89 Mildly decreased* G3a 45-59 Mildly to moderately decreased G3b 30-44 Moderately to severely decreased G4 15-29 Severely decreased G5 <15 Kidney failure *Relative to young adult level. In the absence of evidence of kidney damage, neither GFR category G1 nor G2 fulfill the criteria for CKD. The CKD-EPI equation is validated in individuals 18 years of age and older. Currently the best equation for estimating glomerular filtration rate (GFR) from serum creatinine in children is the Bedside Sorto equation. It is less accurate in patients with extremes of muscle mass, restriction of dietary protein, ingestion of creatine, extra-renal metabolism of creatinine, or treatment with medications that affect renal tubular creatinine secretion. Performed By: #### B GLU #### [facility] [address] [place], [place] Protein [Mass/Vol] 6.2 g/dL Low 6.3-8.2 [facility] Comment on above: Performed By: #### B GLU #### [facility] [address] [place], [place] Albumin [Mass/Vol] 3.4 g/dL Low 3.5-5.0 [facility] Comment on above: Performed By: #### B GLU #### [place] [address] [address] [place], [place] Chloride [Moles/Vol] 98 mmol/L Normal 98-107 [facility] Comment on above: Performed By: #### B GLU #### [place] [address] [address] [address] [place], [place] Potassium [Moles/Vol] 3.9 mmol/L Normal 3.5-5.1 [facility] Comment on above: Performed By: #### B GLU #### [place] [address] [address] [place], [place] Sodium [Moles/Vol] 130 mmol/L Low 135-145 [facility] Comment on above: Performed By: #### B GLU #### [place] [address] [address] [place], [place] Comprehensive Metabolic Pane gigi 11-26-2020 Albumin [Mass/Vol] 3.4 g/dL Low 3.5 - 5 g/dL [place] ALP [Catalytic activity/Vol] 88 U/L 38 - 126 U/L [place] ALT [Catalytic activity/Vol] 33 U/L 0 - 34 U/L [place] Comment on above: The ALT test is perf ormed by an updated assay method. Please note that the reference intervals have been changed and are now sex specific. Anion gap [Moles/Vol] 7 mmol/L [place], [place] AST [Catalytic activity/Vol] 29 U/L 15 - 46 U/L [place] Bilirubin Ql (U) 0.5 mg/dL 0.2 - 1.3 mg/dL [place] Calcium [Mass/Vol] 8.9 mg/dL 8.4 - 10. 4 mg/dL [place] Chloride [Moles/Vol] 98 mmol/L 98 - 10 7 mmol/L [place] CO2 [Moles/Vol] 25 mmol/L 22 - 30 mmol/L [place] Creatinine [Mass/Vol] 0.63 mg/dL 0.52 - 1.25 mg/dL [place] EGFR IF NonAfrican [place] >90.0 >60 mL/min [place] Comment on above: KDIGO guidelines pro vide the following GFR categories: Stage GFR(ml/min/1.73 m2) Terms G1 >=90 Normal or high G2 60-89 Mildly decreased* G3a 45-59 Mildly to moderately decreased G3b 30-44 Moderately to severely decreased G4 15-29 Severely decreased G5 <15 Kidney failure *Relative to young adult level. In the absence of evidence of kidney damage, neither GFR category G1 nor G2 fulfill the criteria for CKD. The CKD-EPI equation is validated in individuals 18 years of age and older. Currently the best equation for estimating glomerular filtration rate (GFR) from serum creatinine in children is the Bedside Sorto equation. It is less accurate in patients with extremes of muscle mass, restriction of dietary protein, ingestion of creatine, extra-renal metabolism of creatinine, or treatment with medications that affect renal tubular creatinine secretion. GFR/1.73 sq M predicted among blacks MDRD (S/P/Bld) [Vol rate/Area] mL/min/{1.73_m2} >60 mL/min [place] Glucose [Mass/Vol] 188 mg/dL High 70 - 100 mg/dL [place] Interpretation and review of laboratory results Abnormal [place] Potassium [Moles/Vol] 3.9 mmol/L 3.5 - 5.1 mmol/L [place] Protein [Mass/Vol] 6.2 g/dL Low 6.3 - 8.2 g/dL [place] Sodium [Moles/Vol] 130 mmol/L Low 135 - 145 mmol/L [facility], [place] Urea nitrogen [Mass/Vol] 10 mg/dL 7 - 20 mg/dL [facility], [place] Test Performed by [facility], [address] [place] [address] [facility], [place] Glucose,Bedsideon 11-26-2020 Glucose [Mass/Vol] 254 mg/dL High [address] Comment on above: Result Comment: Test performed by glucose meter. Results may be 10%-15% lower than serum/plasma values. (CLIA ID [id number]) Performed By: #### B GLU #### [address] [address] [place] [address] Glucose [Mass/Vol] 383 mg/dL High [address] Comment on above: Result Comment: Test performed by glucose meter. Results may be 10%-15% lower than serum/plasma values. (CLIA ID [id number]) Performed By: #### B GLU #### [place] [address] [place] [address] Glucose [Mass/Vol] 206 mg/dL High [address] Comment on above: Result Comment: Test performed by glucose meter. Results may be 10%-15% lower than serum/plasma values. (CLIA ID [id number]) Performed By: #### B GLU #### [address] [address] [place] [address] Glucose [Mass/Vol] 169 mg/dL High [address] Comment on above: Result Comment: Test performed by glucose meter. Results may be 10%-15% lower than serum/plasma values. (CLIA ID [id number]) Performed By: #### B GLU #### [address] [address] [place] [address] Glucose [Mass/Vol] 168 mg/dL High [address] Comment on above: Result Comment: Test performed by glucose meter. Results may be 10%-15% lower than serum/plasma values. (CLIA ID [id number]) Performed By: #### B GLU #### [address] [address] Op Noteon 11-26-2020 Op Note PATIENT: WILL JACINTO ADMISSION DATE: 11/22/2020 SURGERY DATE: 11/26/2020 DATE OF : 1965 AGE: 55 ADMITTING PHYSICIAN: Gabo Estrada III, MD ATTENDING PHYSICIAN: Virgil Marshall MD DICTATING PHYSICIAN: Virgil Marshall MD OPERATIVE RECORD Procedure: 1. PELVIC EXAMINATION UNDER ANESTHESIA. 2. DILATION AND CURETTAGE AND PLACEMENT OF LEVONORGESTREL INTRAUTERINE DEVICE. Preoperative Diagnoses: 1. Complex endometrial hyperplasia with atypia on high-dose progesterone. 2. Morbid obesity with a body mass index greater than 50. 3. Persistent postmenopausal bleeding with thickened endometrium on ultrasound. Postoperative Diagnoses: 1. Complex endometrial hyperplasia with atypia on high-dose progesterone. 2. Morbid obesity with a body mass index greater than 50. 3. Persistent postmenopausal bleeding with thickened endometrium on ultrasound. Anesthesia: LMA. Estimated Blood Loss: Less than 50 cc. Specimens: Endometrial curettings. Complications: None apparent. Disposition: Stable to the PACU. Indications: The patient is a pleasant, transgender male, who is well known to the Gynecologic Oncology service. He was initially diagnosed with complex atypical hyperplasia in May of 2019. Plan was for definitive surgical management. 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 He was therefore started on Megace with plan for conservative management and repeat endometrial sampling in approximately 3 months. However, this has been delayed several times due to issues with poor blood glucose control and COVID and the patient reports that he is taking the Megace as directed. However, he continues to have intermittent episodes of heavy dark red vaginal bleeding. He was recently admitted to the Medicine service for optimization of diabetes. During that time, he admitted to ongoing heavy vaginal bleeding and a pelvic ultrasound was obtained which showed a thickened endometrium measuring up to 1.6 cm. Management options were discussed and we elected to proceed with dilation and curettage and placement of the levonorgestrel intrauterine device as he has had several side effects from the high-dose progesterone including increased appetite and weight gain. Findings: Examination under anesthesia revealed normal external genitalia. The labia majora were somewhat redundant. The introitus was very narrow and the vagina was atrophic. There was a large rectocele posteriorly. The cervix was small and nulliparous and grossly normal in appearance. The uterus was slightly enlarged measuring approximately 9 cm. The majority of the tissue that was removed on the dilation and curettage consisted of blood products and blood clots with scant endometrial tissue. Description of Procedure: After informed, written consent was obtained, the patient was identified in the preoperative holding area and taken to the operating room where anesthesia was found to be adequate. He was then prepped and draped in the usual sterile fashion in the dorsal lithotomy position with Suresh stirrups. Of note, due to the right above the knee amputation with the right lower extremity was wrapped with an Mary bandage in order to keep it in place in the Suresh stirrups. The vagina was then prepped in the standard fashion. A pelvic examination was performed under anesthesia with the above-noted findings. A bivalve speculum was placed in the patient's vagina and the anterior lip of the cervix was grasped with a single-tooth tenaculum. The cervix was already dilated and did not require any additional dilation for the curettage. A sharp curettage was then performed. The majority of the tissue that was removed consisted of blood clot, old blood and scant endometrial tissue. The Liletta levonorgestrel intrauterine device was then deployed in the standard fashion. The lot number was [id number], expiration date 03/2024. The intrauterine device strings were trimmed approximately 3-4 cm beyond the introitus and the speculum was removed. After assuring hemostasis of the anterior lip of the cervix. There was a first-degree laceration of the introitus secondary to a narrow introitus and atrophic changes. Two nvttxs-be-lgmde stitches were used to obtain hemostasis with a 3-0 Vicryl. The patient tolerated the procedure well. Sponge, lap, needle, and instrument counts were correct x2. The patient was awakened and taken to the recovery room in stable condition. Preoperative antibiotics were not indicated per SCIP guidelines. The patient received DVT prophylaxis in the form of serial compression devices during the surgery. Diskriter Job ID: [id number] Virgil Marshall MD DOD:11/26/2020 10:39 A RLK/dsk DOT:11/26/2020 11: (more content not included)... Normal [facility] Otheron 11-26-2020 Test Performed by [facility], [address] [place] [address] [facility] [place], [place] POCT Glucoseon 11-26-2020 Glucose [Mass/Vol] 254 mg/dL High 70 - 100 mg/dL [facility]- [place], [place] Comment on above: Test performed by gl ucose meter. Results may be 10%-15% lower than serum/plasma values. (CLIA ID [id number]) Interpretation and review of laboratory results Abnormal [facility]- [place], [place] Glucose [Mass/Vol] 383 mg/dL High 70 - 100 mg/dL [facility] [place], [place] Comment on above: Test performed by gl ucose meter. Results may be 10%-15% lower than serum/plasma values. (CLIA ID [id number]) Interpretation and review of laboratory results Abnormal [facility]- [place] Test Performed by [facility], [address] [place] [address] [facility] Glucose [Mass/Vol] 206 mg/dL High 70 - 100 mg/dL [facility]- [place] Comment on above: Test performed by gl ucose meter. Results may be 10%-15% lower than serum/plasma values. (CLIA ID [id number]) Interpretation and review of laboratory results Abnormal [facility]- [place], [place] Test Performed by [facility], [place] [address] [facility] Glucose [Mass/Vol] 169 mg/dL High 70 - 100 mg/dL [facility]- [place], [place] Comment on above: Test performed by gl ucose meter. Results may be 10%-15% lower than serum/plasma values. (CLIA ID [id number]) Interpretation and review of laboratory results Abnormal [facility] Test Performed by [facility], [address] [place] [address] [facility] Surgical Pathologyon [address] [facility] PATHOLOGY AND LABORATORY MEDICINE [address] [place] [address] FINAL SURGICAL PATHOLOGY REPORT NAME: WILL JACINTO N [id number] : 1965 55 [id number] LOCATION: [facility] 1714 PROCEDURE 11/26/2020 DATE: SURGEON: VIRGIL MARSHALL M.D. RECEIVED 11/26/2020 DATE: ATTENDING: GABO ESTRADA III, MD REPORT DATE: 11/28/2020 COPIES TO: DIAGNOSIS: ENDOMETRIAL CURETTINGS - POLYPOID FRAGMENTS OF ENDOMETRIAL TISSUE WITH MARKED STROMAL CHANGES CONSISTENT WITH EXOGENOUS HORMONE THERAPY EFFECT INACTIVE GLANDS WITH MILD GLANDULAR CROWDING, SEE COMMENT. Comment: Most of the endometrial tissue shows inactive glands with abundant decidualized stroma. Focally, there is glandular crowding. Patient's history of complex atypical hyperplasia is noted. The current biopsy is not have sufficient morphologic changes for the diagnosis of residual atypical hyperplasia. Follow-up and rebiopsy recommended. NM/NM Signature> ALLEN JERRY M.D. CLINICAL INFORMATION: Not provided SPECIMEN: ENDOMETRIAL CURETTINGS GROSS DESCRIPTION: Received in formalin labeled "endometrial curettings" attached to two segments of telfa are multiple, hemorrhagic segments of reddy tissue which aggregate to 3 x 3 cm. Specimen is filtered and entirely submitted into three cassettes. JCK/JAF Disclaimer: The following statement applies to all immunohistochemistry, in situ hybridization, molecular studies, and immunofluorescence testing. The use of one or more reagents in the above tests is regulated as an analyte specific reagent (ASR). These tests were developed and their performance characteristics determined by the clinical laboratories of [facility]. They have not been cleared by the US Food and Drug Administration (FDA). The FDA has determined that such clearance or approval is not necessary. All the above immunostains were performed on paraffin embedded tissue. Appropriate positive and negative controls (where applicable) were run in parallel with the patient's specimen; these controls showed expected staining pattern, with acceptable intensity of staining. Immunohistochemical assays have not been validated on decalcified tissues. Results should be interpreted with caution given the raised possibility of false negativity on decalcified specimens. Professional Performing Location: [address] [address]. DEPARTMENT OF PATHOLOGY AND LABORATORY MEDICINE [place], [place] [address] Normal [facility] TSH without Reflexon 021 TSH Qn 2.356 u[IU]/mL 0.465 - 4.68 u[IU]/mL [place], [place] Test Performed by [facility], [address] [place] [id number] [place] [address] Thyroid Stim. Hormoneon 11-08 Thyroid Stim. Hormone 2.356 u[IU]/mL Normal 0.465-4.68 0 [facility] Comment on above: Performed By: #### B GLU #### [address] [address] Troponin Ion 11-26-2020 Troponin I.cardiac [Mass/Vol] ng/mL Normal 0.000-0.034 [place] Comment on above: . Result Comment: . Performed By: #### T ROPN #### [address] [place] [address] CBC Auto Differentialon 11-08 Absolute Baso # 0.1 10*3/uL 0 - 0.2 10*3/uL [place] Absolute Neut # 4.9 10*3/uL 1.8 - 7 10*3/uL [place] Basophils/100 WBC (Bld) 0.9 % 0 - 2 % [place], [place] Eosinophils (Bld) [#/Vol] 0.1 10*3/uL 0 - 0.5 10*3/uL [place] Eosinophils/100 WBC (Bld) 1.8 % 1 - 6 % [place] Erythrocyte distribution width (RBC) [Ratio] 16.1 % High 11.5 - 14.5 % [place] Granulocytes/100 WBC (Bld) 64.4 % 40 - 80 % [place] Hematocrit (Bld) [Volume fraction] 29.4 % Low 35 - 47 % [place] Hemoglobin (Bld) [Mass/Vol] 10.0 g/dL Low 11.7 - 16 g/dL [place] Interpretation and review of laboratory results Abnormal [place] Lymphocytes (Bld) [#/Vol] 2.0 10*3/uL 1 - 4.3 10*3/uL [place] Lymphocytes/100 WBC (Bld) 25.7 % 20 - 40 % [place] MCH (RBC) [Entitic mass] 29.8 pg 26 - 34 pg [place] MCHC (RBC) [Mass/Vol] 33.9 % 32 - 36 % [place], [place] MCV (RBC) [Entitic vol] 87.7 fL 79 - 98 fL [place], [place] Monocytes (Bld) [#/Vol] 0.5 10*3/uL 0 - 0.8 10*3/uL [place] Monocytes/100 WBC (Bld) 7.2 % 2 - 10 % [place], [place] Platelet mean volume (Bld) [Entitic vol] 7.6 fL 7.4 - 10.4 fL [place] Platelets (Bld) [#/Vol] 352 10*3/uL 140 - 440 10*3/uL [place] RBC (Bld) [#/Vol] 3.35 10*6/uL Low 3.8 - 5.2 10*6/uL [place] WBC (Bld) [#/Vol] 7.6 10*3/uL 3.6 - 10.7 10*3/uL [place] Test Performed by [facility], [address], [place], [place] [address] [place] Comprehensive Metabolic Pane gigi 11-25-2020 Albumin [Mass/Vol] 3.1 g/dL Low 3.5 - 5 g/dL [place] ALP [Catalytic activity/Vol] 83 U/L 38 - 126 U/L [place] ALT [Catalytic activity/Vol] 31 U/L 0 - 34 U/L [place] Comment on above: The ALT test is perf ormed by an updated assay method. Please note that the reference intervals have been changed and are now sex specific. Anion gap [Moles/Vol] 5 mmol/L [place], [place] AST [Catalytic activity/Vol] 26 U/L 15 - 46 U/L [place] Bilirubin Ql (U) 0.4 mg/dL 0.2 - 1.3 mg/dL [place] Calcium [Mass/Vol] 8.4 mg/dL 8.4 - 10. 4 mg/dL [place] Chloride [Moles/Vol] 103 mmol/L 98 - 10 7 mmol/L [place] CO2 [Moles/Vol] 28 mmol/L 22 - 30 mmol/L [place] Creatinine [Mass/Vol] 0.76 mg/dL 0.52 - 1.25 mg/dL [place] EGFR IF NonAfrican [place] 88.9 mL/min >60 [place] Comment on above: KDIGO guidelines pro vide the following GFR categories: Stage GFR(ml/min/1.73 m2) Terms G1 >=90 Normal or high G2 60-89 Mildly decreased* G3a 45-59 Mildly to moderately decreased G3b 30-44 Moderately to severely decreased G4 15-29 Severely decreased G5 <15 Kidney failure *Relative to young adult level. In the absence of evidence of kidney damage, neither GFR category G1 nor G2 fulfill the criteria for CKD. The CKD-EPI equation is validated in individuals 18 years of age and older. Currently the best equation for estimating glomerular filtration rate (GFR) from serum creatinine in children is the Bedside Sorto equation. It is less accurate in patients with extremes of muscle mass, restriction of dietary protein, ingestion of creatine, extra-renal metabolism of creatinine, or treatment with medications that affect renal tubular creatinine secretion. GFR/1.73 sq M predicted among blacks MDRD (S/P/Bld) [Vol rate/Area] mL/min/{1.73_m2} >60 mL/min [place] Glucose [Mass/Vol] 107 mg/dL High 70 - 100 mg/dL [place] Interpretation and review of laboratory results Abnormal [place] Potassium [Moles/Vol] 3.8 mmol/L 3.5 - 5.1 mmol/L [place] Protein [Mass/Vol] 5.8 g/dL Low 6.3 - 8.2 g/dL [place] Sodium [Moles/Vol] 136 mmol/L 135 - 145 mmol/L [place] Urea nitrogen [Mass/Vol] 11 mg/dL 7 - 20 mg/dL [place] Test Performed by [facility], [address] [place], [place] [address] [place] [address] EKG 12 Leadon 11-25-2020 [facility] Incoming Cardiology Results From [facility] - 11/25/2020 8:18 AM EST [facility] Test Date: 2020-11-24 Pat Name: Will Jacinto Department: [facility] Room: 158 Gender: F Binder Operator: : 1965 Requested By: KYLAH DAVID Order Number: [id number] Reading MD: Justin Ramirez Measurements Intervals [place] Rate: 75 P: 45 NM: 160 QRS: -36 QRSD: 108 T: 18 QT: 392 QTc: 438 Interpretive Statements SINUS RHYTHM LATE PRECORDIAL R/S TRANSITION LEFT VENTRICULAR HYPERTROPHY LEFT ANTERIOR FASCICULAR BLOCK Compared to ECG 11/22/2020 18:01:34 Sinus tachycardia no longer present Electronically Signed On 11-25-2020 8:16:57 EST by Justin Ramirez [facility] [employer] [facility] [employer] Test Date: 2020-11-24 Pat Name: Will Jacinto Department: [facility] Room: 158 Gender: F Binder Operator: MOMO : 1965 Requested By: KYLAH DAVID Order Number: [id number] Reading MD: Justin Ramirez Measurements Intervals [place] Rate: 75 P: 45 NM: 160 QRS: -36 QRSD: 108 T: 18 QT: 392 QTc: 438 Interpretive Statements SINUS RHYTHM LATE PRECORDIAL R/S TRANSITION LEFT VENTRICULAR HYPERTROPHY LEFT ANTERIOR FASCICULAR BLOCK Compared to ECG 11/22/2020 18:01:34 Sinus tachycardia no longer present Electronically Signed On 11-25-2020 8:16:57 EST by Justin Ramirez [place], [place] POC Glucose, Whole Bloodon 0 11-25-2020 Glucose [Mass/Vol] mg/dL High 70 - 100 mg/dL [facility] [place] Comment on above: Test performed by gl ucose meter. Results may be 10%-15% lower than serum/plasma values. (CLIA ID [id number]) Interpretation and review of laboratory results Abnormal [facility] [place] Sodium [Moles/Vol] see below [facility] [place] Comment on above: No confirmation rece ived. Test Performed by [facility], [address] [place], [place] [address] [facility] [employer] [place], [place] POCT Glucoseon 11-25-2020 Glucose [Mass/Vol] 168 mg/dL High 70 - 100 mg/dL [place] Comment on above: Test performed by gl ucose meter. Results may be 10%-15% lower than serum/plasma values. (CLIA ID [id number]) Interpretation and review of laboratory results Abnormal [place] Test Performed by [facility], [address] [place] [address] [facility] [place] Glucose [Mass/Vol] 248 mg/dL High 70 - 100 mg/dL [facility] [place], [place] Comment on above: Test performed by gl ucose meter. Results may be 10%-15% lower than serum/plasma values. (CLIA ID [id number]) Interpretation and review of laboratory results Abnormal [facility] [place] Test Performed by [facility], [address], [place], [place] [address] [place] [address]- [place], [place] Glucose [Mass/Vol] 202 mg/dL High 70 - 100 mg/dL [facility], [place] Comment on above: Test performed by gl ucose meter. Results may be 10%-15% lower than serum/plasma values. (CLIA ID [id number]) Interpretation and review of laboratory results Abnormal [facility] [place] Test Performed by [facility], [address], [address] [place], [place] Glucose [Mass/Vol] 121 mg/dL High 70 - 100 mg/dL [facility], [place] Comment on above: Test performed by gl ucose meter. Results may be 10%-15% lower than serum/plasma values. (CLIA ID [id number]) Interpretation and review of laboratory results Abnormal [facility], [place] Test Performed by [facility], [address], [address] Troponinon 11-25-2020 Troponin I.cardiac [Mass/Vol] ng/mL 0 - 0.034 ng/mL [place] Comment on above: . Test Performed by [facility], [address] [place], [place] US NON OB TRANSVAGINALon Robert, [facility] Incoming Radiology Results From [facility] - 11/25/2020 10:46 AM EST Patient Name: WILL JACINTO Ultrasound ACCESSION EXAM DATE/TIME PROCEDURE ORDERING PROVIDER [id number] 11/25/2020 10:38 EST US Transvaginal MD FRANCES, JAKOB CHATMAN CPT code 27647 Reason For Exam (US Transvaginal) AUB Report ULTRASOUND PELVIS: CLINICAL INDICATION: Abnormal uterine bleeding LMP: post menopausal COMPARISON: CT from 11/22/2020 TECHNIQUE: Transabdominal and transvaginal to optimally evaluate the ovaries and adnexal structures including color flow and spectral Doppler imaging. Limited transvaginal images. FINDINGS: Uterus: Orientation: Anteverted Size: 12.8 x 6.4 x 7.8 cm Endometrium: Difficult to visualized, including limited transvaginal images, but appears heterogeneous and thickened, measuring 16 mm Mass: none Cervix: normal Neither ovary was visualized. Cul-de-sac: No free pelvic fluid IMPRESSION: 1. Endometrial thickening. Given the history of postmenopausal bleeding, hysteroscopy and tissue sampling is recommended as the findings could be seen in endometrial hyperplasia, polyp or neoplasm. 2. Neither ovary was visualized. Report Dictated on --- Final --- Dictating Physician: MD HANNA NICHOLAS Signed Date and Time: 11/25/2020 10:45 am Signed by: MD HANNA NICHOLAS Transcribed Date and Time: 11/25/2020 10:46 [place] Patient Name: WILL ALVARADO Ultrasound ACCESSION EXAM DATE/TIME PROCEDURE ORDERING PROVIDER [id number] 11/25/2020 10:38 EST US Transvaginal MD CRAMER DIANA CHRISTINE CPT code 07422 Reason For Exam (US Transvaginal) AUB Report ULTRASOUND PELVIS: CLINICAL INDICATION: Abnormal uterine bleeding LMP: post menopausal COMPARISON: CT from 11/22/2020 TECHNIQUE: Transabdominal and transvaginal to optimally evaluate the ovaries and adnexal structures including color flow and spectral Doppler imaging. Limited transvaginal images. FINDINGS: Uterus: Orientation: Anteverted Size: 12.8 x 6.4 x 7.8 cm Endometrium: Difficult to visualized, including limited transvaginal images, but appears heterogeneous and thickened, measuring 16 mm Mass: none Cervix: normal Neither ovary was visualized. Cul-de-sac: No free pelvic fluid IMPRESSION: 1. Endometrial thickening. Given the history of postmenopausal bleeding, hysteroscopy and tissue sampling is recommended as the findings could be seen in endometrial hyperplasia, polyp or neoplasm. 2. Neither ovary was visualized. Report Dictated on --- Final --- Dictating Physician: MD HANNA NICHOLAS Signed Date and Time: 11/25/2020 10:45 am Signed by: MD HANNA NICHOLAS Transcribed Date and Time: 11/25/2020 10:46 [place] XR ABDOMEN (KUB) (SINGLE AP VIEW)on 11-25-2020 [facility] [facility] - 11/25/2020 3:31 PM EST Patient Name: WILL JACINTO Diagnostic Radiology ACCESSION EXAM DATE/TIME PROCEDURE ORDERING PROVIDER [id number] 11/25/2020 15:08 EST CR Abdomen AP Lorenzo STAPLETON, ART CPT code 15472 Reason For Exam (CR Abdomen AP) abd distention Report EXAM TYPE: CR Abdomen AP EXAM DATE AND TIME: 11/25/2020 3:08 PM EST INDICATION: 55 years Female with abdominal distention COMPARISON: CT from three days ago TECHNIQUE: AP supine radiograph of the abdomen and pelvis was obtained. FINDINGS: Gaseous distention of both small bowel and large bowel loops. Limited evaluation for free air or air-fluid levels on supine-only imaging. No abnormal soft tissue calcifications are seen. Degenerative changes are seen in the visualized spine. The visualized lung bases are unremarkable. IMPRESSION: Gaseous distention of small and large bowel loops, likely due to ileus; recommend continued imaging follow-up. Report Dictated on --- Final --- Dictating Physician: MD HANNA NICHOLAS Signed Date and Time: 11/25/2020 3:29 pm Signed by: MD HANNA NICHOLAS Transcribed Date and Time: 11/25/2020 3:31 [place] Patient Name: WILL ALVARADO Diagnostic Radiology ACCESSION EXAM DATE/TIME PROCEDURE ORDERING PROVIDER [id number] 11/25/2020 15:08 EST CR Abdomen AP Lorenzo STAPLETON, ART CPT code 78661 Reason For Exam (CR Abdomen AP) abd distention Report EXAM TYPE: CR Abdomen AP EXAM DATE AND TIME: 11/25/2020 3:08 PM EST INDICATION: 55 years Female with abdominal distention COMPARISON: CT from three days ago TECHNIQUE: AP supine radiograph of the abdomen and pelvis was obtained. FINDINGS: Gaseous distention of both small bowel and large bowel loops. Limited evaluation for free air or air-fluid levels on supine-only imaging. No abnormal soft tissue calcifications are seen. Degenerative changes are seen in the visualized spine. The visualized lung bases are unremarkable. IMPRESSION: Gaseous distention of small and large bowel loops, likely due to ileus; recommend continued imaging follow-up. Report Dictated on --- Final --- Dictating Physician: MD HANNA NICHOLAS Signed Date and Time: 11/25/2020 3:29 pm Signed by: MD HANNA NICHOLAS Transcribed Date and Time: 11/25/2020 3:31 [place] CBC Auto Differentialon 11-08 Absolute Baso # 0.0 10*3/uL 0 - 0.2 10*3/uL [place] Absolute Neut # 5.4 10*3/uL 1.8 - 7 10*3/uL [place] Basophils/100 WBC (Bld) 0.7 % 0 - 2 % [place], [place] Eosinophils (Bld) [#/Vol] 0.1 10*3/uL 0 - 0.5 10*3/uL [place] Eosinophils/100 WBC (Bld) 0.9 % Low 1 - 6 % [place] Erythrocyte distribution width (RBC) [Ratio] 16.3 % High 11.5 - 14.5 % [place] Granulocytes/100 WBC (Bld) 77.5 % 40 - 80 % [place] Hematocrit (Bld) [Volume fraction] 32.6 % Low 35 - 47 % [place] Hemoglobin (Bld) [Mass/Vol] 11.0 g/dL Low 11.7 - 16 g/dL [place] Interpretation and review of laboratory results Abnormal [place] Lymphocytes (Bld) [#/Vol] 1.1 10*3/uL 1 - 4.3 10*3/uL [place] Lymphocytes/100 WBC (Bld) 15.8 % Low 20 - 40 % [place] MCH (RBC) [Entitic mass] 29.4 pg 26 - 34 pg [place] MCHC (RBC) [Mass/Vol] 33.7 % 32 - 36 % [place] MCV (RBC) [Entitic vol] 87.4 fL 79 - 98 fL [place], [place] Monocytes (Bld) [#/Vol] 0.4 10*3/uL 0 - 0.8 10*3/uL [place] Monocytes/100 WBC (Bld) 5.1 % 2 - 10 % [place] Platelet mean volume (Bld) [Entitic vol] 7.9 fL 7.4 - 10.4 fL [place] Platelets (Bld) [#/Vol] 332 10*3/uL 140 - 440 10*3/uL [place] RBC (Bld) [#/Vol] 3.73 10*6/uL Low 3.8 - 5.2 10*6/uL [place] WBC (Bld) [#/Vol] 6.9 10*3/uL 3.6 - 10.7 10*3/uL [place] Test Performed by [facility], [address] [place], [place] [id number] [place] [address] Comprehensive Metabolic Pane gigi 11-24-2020 Albumin [Mass/Vol] 3.6 g/dL 3.5 - 5 g/dL [place] ALP [Catalytic activity/Vol] 110 U/L 38 - 126 U/L [place] ALT [Catalytic activity/Vol] 36 U/L High 0 - 34 U/L [place] Comment on above: The ALT test is perf ormed by an updated assay method. Please note that the reference intervals have been changed and are now sex specific. Anion gap [Moles/Vol] 7 mmol/L [place] AST [Catalytic activity/Vol] 31 U/L 15 - 46 U/L [place] Bilirubin Ql (U) 0.6 mg/dL 0.2 - 1.3 mg/dL [place] Calcium [Mass/Vol] 9.1 mg/dL 8.4 - 10. 4 mg/dL [place] Chloride [Moles/Vol] 97 mmol/L Low 98 - 10 7 mmol/L [place] CO2 [Moles/Vol] 29 mmol/L 22 - 30 mmol/L [place] Creatinine [Mass/Vol] 0.74 mg/dL 0.52 - 1.25 mg/dL [place] EGFR IF NonAfrican [place] >90.0 >60 mL/min [place] Comment on above: KDIGO guidelines pro vide the following GFR categories: Stage GFR(ml/min/1.73 m2) Terms G1 >=90 Normal or high G2 60-89 Mildly decreased* G3a 45-59 Mildly to moderately decreased G3b 30-44 Moderately to severely decreased G4 15-29 Severely decreased G5 <15 Kidney failure *Relative to young adult level. In the absence of evidence of kidney damage, neither GFR category G1 nor G2 fulfill the criteria for CKD. The CKD-EPI equation is validated in individuals 18 years of age and older. Currently the best equation for estimating glomerular filtration rate (GFR) from serum creatinine in children is the Bedside Sorto equation. It is less accurate in patients with extremes of muscle mass, restriction of dietary protein, ingestion of creatine, extra-renal metabolism of creatinine, or treatment with medications that affect renal tubular creatinine secretion. GFR/1.73 sq M predicted among blacks MDRD (S/P/Bld) [Vol rate/Area] mL/min/{1.73_m2} >60 mL/min [place] Glucose [Mass/Vol] 304 mg/dL High 70 - 100 mg/dL [place] Interpretation and review of laboratory results Abnormal [place] Potassium [Moles/Vol] 4.3 mmol/L 3.5 - 5.1 mmol/L [place] Protein [Mass/Vol] 6.5 g/dL 6.3 - 8.2 g/dL [place] Sodium [Moles/Vol] 133 mmol/L Low 135 - 145 mmol/L [place] Urea nitrogen [Mass/Vol] 16 mg/dL 7 - 20 mg/dL [place] Test Performed by [facility], [address], [place], [place] [address] [place] Albumin [Mass/Vol] 3.6 g/dL 3.5 - 5 g/dL [place] ALP [Catalytic activity/Vol] 115 U/L 38 - 126 U/L [place] ALT [Catalytic activity/Vol] 35 U/L High 0 - 34 U/L [place] Comment on above: The ALT test is perf ormed by an updated assay method. Please note that the reference intervals have been changed and are now sex specific. Anion gap [Moles/Vol] 6 mmol/L [place] AST [Catalytic activity/Vol] 25 U/L 15 - 46 U/L [place] Bilirubin Ql (U) 0.6 mg/dL 0.2 - 1.3 mg/dL [place] Calcium [Mass/Vol] 9.0 mg/dL 8.4 - 10. 4 mg/dL [place] Chloride [Moles/Vol] 97 mmol/L Low 98 - 10 7 mmol/L [place] CO2 [Moles/Vol] 29 mmol/L 22 - 30 mmol/L [place] Creatinine [Mass/Vol] 0.78 mg/dL 0.52 - 1.25 mg/dL [place] EGFR IF NonAfrican [place] 86.1 mL/min >60 [place] Comment on above: KDIGO guidelines pro vide the following GFR categories: Stage GFR(ml/min/1.73 m2) Terms G1 >=90 Normal or high G2 60-89 Mildly decreased* G3a 45-59 Mildly to moderately decreased G3b 30-44 Moderately to severely decreased G4 15-29 Severely decreased G5 <15 Kidney failure *Relative to young adult level. In the absence of evidence of kidney damage, neither GFR category G1 nor G2 fulfill the criteria for CKD. The CKD-EPI equation is validated in individuals 18 years of age and older. Currently the best equation for estimating glomerular filtration rate (GFR) from serum creatinine in children is the Bedside Sorto equation. It is less accurate in patients with extremes of muscle mass, restriction of dietary protein, ingestion of creatine, extra-renal metabolism of creatinine, or treatment with medications that affect renal tubular creatinine secretion. GFR/1.73 sq M predicted among blacks MDRD (S/P/Bld) [Vol rate/Area] mL/min/{1.73_m2} >60 mL/min [facility], [place] Glucose [Mass/Vol] 308 mg/dL High 70 - 100 mg/dL [facility], [place] Interpretation and review of laboratory results Abnormal [place] Potassium [Moles/Vol] 4.8 mmol/L 3.5 - 5.1 mmol/L [facility], [place] Protein [Mass/Vol] 6.6 g/dL 6.3 - 8.2 g/dL [facility], [place] Sodium [Moles/Vol] 132 mmol/L Low 135 - 145 mmol/L [place] Urea nitrogen [Mass/Vol] 18 mg/dL 7 - 20 mg/dL [place] Test Performed by [facility], [address] [place], [place] [address] [place] EKG 12 [place] 11-24-2020 [facility] Incoming Cardiology Results From [facility] - 11/24/2020 6:48 PM EST [facility] Test Date: 2020-11-22 Pat Name: Will Jacinto Department: Room: 158 Gender: F Binder Operator: MALINDA : 1965 Requested By: JOEL NELSON Order Number: [id number] Reading MD: Brock Ortiz Measurements Intervals [place] Rate: 101 P: 58 NM: 176 QRS: -43 QRSD: 108 T: 47 QT: 380 QTc: 493 Interpretive Statements SINUS TACHYCARDIA LEFT ANTERIOR FASCICULAR BLOCK LATE PRECORDIAL R/S TRANSITION LEFT VENTRICULAR HYPERTROPHY Electronically Signed On 11-24-2020 18:47:09 EST by Brock Ortiz [facility], [facility] Test Date: 2020-11-22 Pat Name: Will Jacinto Department: Room: 158 Gender: F Binder Operator: MALINDA : 1965 Requested By: JOEL NELSON Order Number: [id number] Reading MD: Brock Ortiz Measurements Intervals [place] Rate: 101 P: 58 NM: 176 QRS: -43 QRSD: 108 T: 47 QT: 380 QTc: 493 Interpretive Statements SINUS TACHYCARDIA LEFT ANTERIOR FASCICULAR BLOCK LATE PRECORDIAL R/S TRANSITION LEFT VENTRICULAR HYPERTROPHY Electronically Signed On 11-24-2020 18:47:09 EST by Brock Ortiz [place], [place] POCT Glucoseon 11-24-2020 Glucose [Mass/Vol] 159 mg/dL High 70 - 100 mg/dL [facility], [place] Comment on above: Test performed by gl ucose meter. Results may be 10%-15% lower than serum/plasma values. (CLIA ID [id number]) Interpretation and review of laboratory results Abnormal [facility] Test Performed by [facility], [address], [place], [place] [address] [facility] [address], [place] Glucose [Mass/Vol] 235 mg/dL High 70 - 100 mg/dL [facility] Comment on above: Test performed by gl ucose meter. Results may be 10%-15% lower than serum/plasma values. (CLIA ID [id number]) Interpretation and review of laboratory results Abnormal [facility] Test Performed by [facility], [address], [place], [place] [address] [facility] Glucose [Mass/Vol] 298 mg/dL High 70 - 100 mg/dL [facility] Comment on above: Test performed by gl ucose meter. Results may be 10%-15% lower than serum/plasma values. (CLIA ID [id number]) Interpretation and review of laboratory results Abnormal [facility] [place] Test Performed by [facility], [address], [place], [place] [address] [facility] Glucose [Mass/Vol] 358 mg/dL High 70 - 100 mg/dL [facility] [place] Comment on above: Test performed by gl ucose meter. Results may be 10%-15% lower than serum/plasma values. (CLIA ID [id number]) Interpretation and review of laboratory results Abnormal [place] Test Performed by [facility], [address], [place], [place] [address] [place] Troponinon 11-24-2020 Troponin I.cardiac [Mass/Vol] ng/mL 0 - 0.034 ng/mL [place] Comment on above: . Test Performed by [facility], [address], [place], [place] [address] [place] Troponin I.cardiac [Mass/Vol] ng/mL 0 - 0.034 ng/mL [place] Comment on above: . Test Performed by [facility], [address], [place], [place] [address] [place] CBC Auto Differentialon 11-08 Absolute Baso # 0.0 10*3/uL 0 - 0.2 10*3/uL [place] Absolute Neut # 7.6 10*3/uL High 1.8 - 7 10*3/uL [place] Basophils/100 WBC (Bld) 0.3 % 0 - 2 % [place], [place] Eosinophils (Bld) [#/Vol] 0.0 10*3/uL 0 - 0.5 10*3/uL [place] Eosinophils/100 WBC (Bld) 0.1 % Low 1 - 6 % [place] Erythrocyte distribution width (RBC) [Ratio] 16.3 % High 11.5 - 14.5 % [place] Granulocytes/100 WBC (Bld) 85.6 % High 40 - 80 % [place] Hematocrit (Bld) [Volume fraction] 33.4 % Low 35 - 47 % [place] Hemoglobin (Bld) [Mass/Vol] 11.2 g/dL Low 11.7 - 16 g/dL [place] Interpretation and review of laboratory results Abnormal [place] Lymphocytes (Bld) [#/Vol] 0.7 10*3/uL Low 1 - 4.3 10*3/uL [place] Lymphocytes/100 WBC (Bld) 7.9 % Low 20 - 40 % [place] MCH (RBC) [Entitic mass] 29.5 pg 26 - 34 pg [place] MCHC (RBC) [Mass/Vol] 33.5 % 32 - 36 % [place] MCV (RBC) [Entitic vol] 88.0 fL 79 - 98 fL [place], [place] Monocytes (Bld) [#/Vol] 0.5 10*3/uL 0 - 0.8 10*3/uL [place] Monocytes/100 WBC (Bld) 6.1 % 2 - 10 % [place], [place] Platelet mean volume (Bld) [Entitic vol] 8.0 fL 7.4 - 10.4 fL [place] Platelets (Bld) [#/Vol] 343 10*3/uL 140 - 440 10*3/uL [place] RBC (Bld) [#/Vol] 3.80 10*6/uL 3.8 - 5.2 10*6/uL [place] WBC (Bld) [#/Vol] 8.9 10*3/uL 3.6 - 10.7 10*3/uL [place] Test Performed by [facility], [address] [place], [place] [address] [place] Comprehensive Metabolic Pane gigi 11-23-2020 Albumin [Mass/Vol] 3.9 g/dL 3.5 - 5 g/dL [place] ALP [Catalytic activity/Vol] 136 U/L High 38 - 126 U/L [place] ALT [Catalytic activity/Vol] 42 U/L High 0 - 34 U/L [place] Comment on above: The ALT test is perf ormed by an updated assay method. Please note that the reference intervals have been changed and are now sex specific. Anion gap [Moles/Vol] 11 mmol/L [place] AST [Catalytic activity/Vol] 31 U/L 15 - 46 U/L [place] Bilirubin Ql (U) 0.6 mg/dL 0.2 - 1.3 mg/dL [place] Calcium [Mass/Vol] 9.6 mg/dL 8.4 - 10. 4 mg/dL [place] Chloride [Moles/Vol] 94 mmol/L Low 98 - 10 7 mmol/L [place] CO2 [Moles/Vol] 28 mmol/L 22 - 30 mmol/L [place] Creatinine [Mass/Vol] 0.86 mg/dL 0.52 - 1.25 mg/dL [place] EGFR IF NonAfrican [place] 76.5 mL/min >60 [place] Comment on above: KDIGO guidelines pro vide the following GFR categories: Stage GFR(ml/min/1.73 m2) Terms G1 >=90 Normal or high G2 60-89 Mildly decreased* G3a 45-59 Mildly to moderately decreased G3b 30-44 Moderately to severely decreased G4 15-29 Severely decreased G5 <15 Kidney failure *Relative to young adult level. In the absence of evidence of kidney damage, neither GFR category G1 nor G2 fulfill the criteria for CKD. The CKD-EPI equation is validated in individuals 18 years of age and older. Currently the best equation for estimating glomerular filtration rate (GFR) from serum creatinine in children is the Bedside Sorto equation. It is less accurate in patients with extremes of muscle mass, restriction of dietary protein, ingestion of creatine, extra-renal metabolism of creatinine, or treatment with medications that affect renal tubular creatinine secretion. GFR/1.73 sq M predicted among blacks MDRD (S/P/Bld) [Vol rate/Area] 88.7 mL/min/{1.73_m2} >60 [place] Glucose [Mass/Vol] 481 mg/dL Critically high 70 - 1 00 mg/dL [place] Interpretation and review of laboratory results Abnormal [place] Potassium [Moles/Vol] 4.8 mmol/L 3.5 - 5.1 mmol/L [place] Protein [Mass/Vol] 6.9 g/dL 6.3 - 8.2 g/dL [place] Sodium [Moles/Vol] 133 mmol/L Low 135 - 145 mmol/L [place] Urea nitrogen [Mass/Vol] 20 mg/dL 7 - 20 mg/dL [place] Test Performed by [facility], [address] [place], [place] [address] [facility] [place]AM GLUCOSEon 11-23-2020 Glucose [Mass/Vol] 521 mg/dL Critically high 70 - 1 00 mg/dL [place] Interpretation and review of laboratory results Abnormal [facility] [place] [place] Test Performed by [facility], [address] [place] [address] [place] Hemoglobin A1Con 11-23-2020 eAG 240 mg/dL [place] HbA1c (Bld) [Mass fraction] 10.0 % Abnormal [place] Comment on above: Normal less than 5.7 % Prediabetes 5.7% to 6.4% Diabetes 6.5% or higher --HgbA1C levels may not be accurate in patients who have renal disease, received recent blood transfusions, are anemic, or who have dyshemoglobinemia. Interpretation and review of laboratory results Abnormal [facility] [employer] [facility] [place] Test Performed by [facility], [address] [place], [place] [address] [place] POCT Glucoseon 11-23-2020 Glucose [Mass/Vol] 305 mg/dL High 70 - 100 mg/dL [place] Comment on above: Test performed by gl ucose meter. Results may be 10%-15% lower than serum/plasma values. (CLIA ID [id number]) Interpretation and review of laboratory results Abnormal [facility] [employer] [facility] [place] Test Performed by [facility], [address] [place], [place] [id number] [place] [address] Glucose [Mass/Vol] 427 mg/dL High 70 - 100 mg/dL [place] Comment on above: Test performed by gl ucose meter. Results may be 10%-15% lower than serum/plasma values. (CLIA ID [id number]) Interpretation and review of laboratory results Abnormal [facility] [employer] [facility] [place] Test Performed by [facility], [address] [place], [place] [address] [place] Glucose [Mass/Vol] 408 mg/dL High 70 - 100 mg/dL [place] Comment on above: Test performed by gl ucose meter. Results may be 10%-15% lower than serum/plasma values. (CLIA ID [id number]) Interpretation and review of laboratory results Abnormal [facility] [place] Test Performed by [facility], [address] [place], [place] [address] [facility] [place] Glucose [Mass/Vol] 432 mg/dL High 70 - 100 mg/dL [facility] [place] Comment on above: Test performed by gl ucose meter. Results may be 10%-15% lower than serum/plasma values. (CLIA ID [id number]) Interpretation and review of laboratory results Abnormal [facility] [place] Test Performed by [facility], [address], [place], [place] [address] [facility] [place] Respiratory Panel, Molecular , with COVID-19 (Restricted: peds pts or suitable admitted adults)on 11-23-2020 Respiratory Panel Molecular, with COVID NEGATIVE: No targets were detected by the [employer] Upper Respiratory Pathogens PCR Panel. _ Expected Result: Not Detected The [employer] Upper Respiratory Pathogens PCR Panel can detect the following targets: SARS-CoV-2, Adenovirus, Coronavirus 229E, Coronavirus HKU1, Coronavirus NL63, Coronavirus OC43, Human Metapneumovirus, Human Rhinovirus/Enterovirus, Influenza A, Influenza B, Parainfluenza Virus 1, Parainfluenza Virus 2, Parainfluenza Virus 3, Parainfluenza Virus 4, Respiratory Syncytial Virus, Bordetella pertussis, Bordetella parapertussis, Chlamydia pneumoniae, Mycoplasma pneumoniae. Negative results do not preclude SARS-CoV-2 infection and should not be used as the sole basis for treatment or other patient management decisions. This assay was developed by [employer] and distributed under an Emergency Use Authorization (EUA) granted by the FDA for the qualitative detection of SARS-CoV-2 nucleic acid. Provider and patient fact sheets can be found at https://www.fda.gov/medi a/777910/download and https://www.fda.gov/medi a/425937/download. [employer] Test Performed by [facility], [address] [place] [address] [place] Basic Metabolic Panelon 11-08 Anion gap [Moles/Vol] 17 mmol/L [place] Calcium [Mass/Vol] 9.8 mg/dL 8.4 - 10. 4 mg/dL [place] Chloride [Moles/Vol] 94 mmol/L Low 98 - 10 7 mmol/L [place] CO2 [Moles/Vol] 23 mmol/L 22 - 30 mmol/L [place] Creatinine [Mass/Vol] 0.75 mg/dL 0.52 - 1.25 mg/dL [place] EGFR IF NonAfrican [place] >90.0 >60 mL/min [place] Comment on above: KDIGO guidelines pro vide the following GFR categories: Stage GFR(ml/min/1.73 m2) Terms G1 >=90 Normal or high G2 60-89 Mildly decreased* G3a 45-59 Mildly to moderately decreased G3b 30-44 Moderately to severely decreased G4 15-29 Severely decreased G5 <15 Kidney failure *Relative to young adult level. In the absence of evidence of kidney damage, neither GFR category G1 nor G2 fulfill the criteria for CKD. The CKD-EPI equation is validated in individuals 18 years of age and older. Currently the best equation for estimating glomerular filtration rate (GFR) from serum creatinine in children is the Bedside Sorto equation. It is less accurate in patients with extremes of muscle mass, restriction of dietary protein, ingestion of creatine, extra-renal metabolism of creatinine, or treatment with medications that affect renal tubular creatinine secretion. GFR/1.73 sq M predicted among blacks MDRD (S/P/Bld) [Vol rate/Area] mL/min/{1.73_m2} >60 mL/min [place] Glucose [Mass/Vol] 522 mg/dL Critically high 70 - 1 00 mg/dL [place] Potassium [Moles/Vol] 5.5 mmol/L High 3.5 - 5.1 mmol/L [place] Sodium [Moles/Vol] 134 mmol/L Low 135 - 145 mmol/L [place] Urea nitrogen [Mass/Vol] 20 mg/dL 7 - 20 mg/dL [place] COVID-19, [place] 11-22-2020 Sodium [Moles/Vol] see below [facility] [place] Comment on above: Not Detected Expected Result: Not Detected _ Isothermal nucleic acid amplification performed on the [employer] ID Now System by the [facility] Negative results do not preclude SARS-CoV-2 infection and should not be used as the sole basis for treatment or other patient management decisions. This assay was developed by [employer] and distributed under an Emergency Use Authorization (EUA) granted by the [facility] for the qualitative detection of SARS-CoV-2 nucleic acid. Provider and patient fact sheets can be found at https://www.fda.gov/media/652006/download and https://www.fda.gov/media/767746/download. Test Performed by [facility], [address] [place] [id number] ORDER WAS CANCELLED 11/22/20 20:20, wrong test code. [facility] Pel[facility] Contrast on 11-22-2020 [facility] - 11/22/2020 7:44 PM EST Patient Name: WILL JACINTO Computed Tomography ACCESSION EXAM DATE/TIME PROCEDURE ORDERING PROVIDER [id number] 11/22/2020 19:[address] Abdomen/Pelvis w/ [place] [id number] -JOEL NELSON Contrast (IV Onl CPT code 78900 Q9967 Reason For Exam (CT Abdomen/Pelvis w/ IV Contrast (IV Onl) abd pain Report EXAM: CT Abdomen and pelvis INDICATION: Abdominal pain COMPARISON: 09/17/2020 TECHNIQUE: CT of the abdomen and pelvis was performed with contrast (75 mL of Isovue 370 was injected intravenously). Coronal and sagittal reformats were obtained. FINDINGS: LOWER CHEST: Stable appearance of a 3 mm right middle lobe nodule. ABDOMEN: LIVER: There is relative hypoattenuation of liver parenchyma as compared to the spleen, consistent with hepatic steatosis. BILE DUCTS: normal caliber. GALLBLADDER: No calcified gallstones. Normal caliber wall. PANCREAS: within normal limits. SPLEEN: within normal limits. ADRENALS: within normal limits. KIDNEYS: within normal limits. PELVIS: REPRODUCTIVE ORGANS: no pelvic masses. URETERS: within normal limits. BLADDER: within normal limits. BOWEL: There is marked gastric distention. The small and large bowel are otherwise normal in caliber without evidence of obstruction. Appendix not well visualized, however, there are no rheumatoid changes in the right lower quadrant to suggest acute appendicitis. No enlarged mesenteric lymph nodes. PERITONEUM: no ascites or free air, no fluid collection. VESSELS: Within normal limits. LYMPH NODES: No enlarged nodes. RETROPERITONEUM: within normal limits. ABDOMINAL WALL: within normal limits. BONES: Multilevel degenerative changes of the imaged spine IMPRESSION: Computed Tomography Report 1. Moderate gastric distention. Remainder of bowel is normal in caliber without evidence of obstruction. 2. Hepatic steatosis. 3. Stable 3 mm right middle lobe pulmonary nodule. Report Dictated on Workstation: [id number] --- Final --- Dictating Physician: MD KELLEY KEVIN Signed Date and Time: 11/22/2020 7:43 pm Signed by: MD KELLEY KEVIN Transcribed Date and Time: 11/22/2020 7:44 [place] Patient [id number] Computed Tomography ACCESSION EXAM DATE/TIME PROCEDURE ORDERING PROVIDER [id number] 11/22/2020 19:[address] Abdomen/Pelvis w/ [place] [id number] -JOEL NELSON Contrast (IV Onl CPT code 63472 Q9967 Reason For Exam (CT Abdomen/Pelvis w/ IV Contrast (IV Onl) abd pain Report EXAM: CT Abdomen and pelvis INDICATION: Abdominal pain COMPARISON: 09/17/2020 TECHNIQUE: CT of the abdomen and pelvis was performed with contrast (75 mL of Isovue 370 was injected intravenously). Coronal and sagittal reformats were obtained. FINDINGS: LOWER CHEST: Stable appearance of a 3 mm right middle lobe nodule. ABDOMEN: LIVER: There is relative hypoattenuation of liver parenchyma as compared to the spleen, consistent with hepatic steatosis. BILE DUCTS: normal caliber. GALLBLADDER: No calcified gallstones. Normal caliber wall. PANCREAS: within normal limits. SPLEEN: within normal limits. ADRENALS: within normal limits. KIDNEYS: within normal limits. PELVIS: REPRODUCTIVE ORGANS: no pelvic masses. URETERS: within normal limits. BLADDER: within normal limits. BOWEL: There is marked gastric distention. The small and large bowel are otherwise normal in caliber without evidence of obstruction. Appendix not well visualized, however, there are no rheumatoid changes in the right lower quadrant to suggest acute appendicitis. No enlarged mesenteric lymph nodes. PERITONEUM: no ascites or free air, no fluid collection. VESSELS: Within normal limits. LYMPH NODES: No enlarged nodes. RETROPERITONEUM: within normal limits. ABDOMINAL WALL: within normal limits. BONES: Multilevel degenerative changes of the imaged spine IMPRESSION: Computed Tomography Report 1. Moderate gastric distention. Remainder of bowel is normal in caliber without evidence of obstruction. 2. Hepatic steatosis. 3. Stable 3 mm right middle lobe pulmonary nodule. Report Dictated on Workstation: [id number] --- Final --- Dictating Physician: MD KELLEY KEVIN Signed Date and Time: 11/22/2020 7:43 pm Signed by: MD KELLEY KEVIN Transcribed Date and Time: 11/22/2020 7:44 [place] Hemogram (CBC) w/Auto Diffon 11-22-2020 Absolute Baso # 0.0 10*3/uL 0 - 0.2 10*3/uL [place] Absolute Neut # 8.1 10*3/uL High 1.8 - 7 10*3/uL [place] Basophils/100 WBC (Bld) 0.5 % 0 - 2 % M [place], [place] Eosinophils (Bld) [#/Vol] 0.0 10*3/uL 0 - 0.5 10*3/uL [place] Eosinophils/100 WBC (Bld) 0.3 % Low 1 - 6 % [place] Erythrocyte distribution width (RBC) [Ratio] 16.1 % High 11.5 - 14.5 % [place] Granulocytes/100 WBC (Bld) 84.9 % High 40 - 80 % [place] Hematocrit (Bld) [Volume fraction] 36.1 % 35 - 47 % [place] Hemoglobin (Bld) [Mass/Vol] 12.0 g/dL 11.7 - 16 g/dL [place] Interpretation and review of laboratory results Abnormal [place] Lymphocytes (Bld) [#/Vol] 0.9 10*3/uL Low 1 - 4.3 10*3/uL [place] Lymphocytes/100 WBC (Bld) 9.4 % Low 20 - 40 % [place] MCH (RBC) [Entitic mass] 29.0 pg 26 - 34 pg [place] MCHC (RBC) [Mass/Vol] 33.3 % 32 - 36 % [place], [place] MCV (RBC) [Entitic vol] 87.2 fL 79 - 98 fL [place], [place] Monocytes (Bld) [#/Vol] 0.5 10*3/uL 0 - 0.8 10*3/uL [place] Monocytes/100 WBC (Bld) 4.9 % 2 - 10 % [place], [place] Platelet mean volume (Bld) [Entitic vol] 8.1 fL 7.4 - 10.4 fL [place] Platelets (Bld) [#/Vol] 404 10*3/uL 140 - 440 10*3/uL [place] RBC (Bld) [#/Vol] 4.15 10*6/uL 3.8 - 5.2 10*6/uL [place] WBC (Bld) [#/Vol] 9.6 10*3/uL 3.6 - 10.7 10*3/uL [place] Test Performed by [facility], [address] [place], [place] [id number] [place] [address] Hepatic Function Panelon Albumin [Mass/Vol] 4.2 g/dL 3.5 - 5 g/dL [place] ALP [Catalytic activity/Vol] 181 U/L High 38 - 126 U/L [place] ALT [Catalytic activity/Vol] 44 U/L High 0 - 34 U/L [place] Comment on above: The ALT test is perf ormed by an updated assay method. Please note that the reference intervals have been changed and are now sex specific. AST [Catalytic activity/Vol] 30 U/L 15 - 46 U/L [place] Bilirubin Ql (U) 0.6 mg/dL 0.2 - 1.3 mg/dL [place] Bilirubin.direct [Mass/Vol] 0.0 mg/dL 0 - 0.3 mg/dL [place] Protein [Mass/Vol] 7.4 g/dL 6.3 - 8.2 g/dL [place] Otheron 11-22-2020 Interpretation and review of laboratory results Abnormal [place] Test Performed by [facility], [address], [place], [place] [address] [place] POCT GLUCOSEon 11-22-2020 Glucose [Mass/Vol] 470 mg/dL [place] Interpretation and review of laboratory results Normal [place] QC OK? yes [place] Troponin x1on 11-22-2020 Troponin I.cardiac [Mass/Vol] ng/mL 0 - 0.034 ng/mL [place] Comment on above: . Test Performed by [facility], [address], [place], [place] [address] [place] Urinalysison 11-22-2020 Appearance (U) Turbid Abnormal Clear NA [place] Comment on above: . Bilirubin Urine Negative Negative mg/dL [place] Comment on above: . Color (U) Light-[place] Abnormal Lt. Yellow NA [place] Comment on above: . Glucose, Ur >1,000 Abnormal Normal (<70) mg/dL [place] Comment on above: . Interpretation and review of laboratory results Abnormal [place] Ketones Ql (U) 40 mg/dL Abnormal Negative [place] Comment on above: . LEUKOCYTES, UA 75 Abnormal Negative Kat/uL [place] Comment on above: . Nitrite, Urine Negative Negative [place], [place] Comment on above: . Occult Blood,Urine >1.0 Abnormal Negative mg/dL [place] Comment on above: . pH (U) 6.0 [pH] [place] Comment on above: . Protein (U) [Mass/Vol] 10 mg/dL Abnormal Negative [place] Comment on above: . RBC (U) [#/Vol] /uL Abnormal 0 - 2 /[HPF] [place] Comment on above: . Specific Kenna, Urine 1.025 M [place], [place] Comment on above: . Squam Epithel, UA 0-2 3 - 5 /[HPF] [place] Comment on above: . Urobilinogen, Urine Normal Normal (0-1) mg/dL [place] Comment on above: . WBC, UA 0-2 0 - 5 /[HPF] [place] Comment on above: . Test Performed by [facility], [address], [place], [place] [address] [place] XR CHEST PORTABLEon 11-22-19 [facility] Incoming Radiology Results From [facility] - 11/22/2020 6:33 PM EST Patient Name: WILL JACINTO Diagnostic Radiology ACCESSION EXAM DATE/TIME PROCEDURE ORDERING PROVIDER [id number] 11/22/2020 18:30 EST CR Chest Portable JOEL HUDSON CPT code 69480 Reason For Exam (CR Chest Portable) SOB Report Reason for examination: Shortness of breath. Single portable chest is obtained at 1822 hours. Comparison is dated 06/14/2019. The trachea is midline. The mediastinal and cardiac silhouettes are stable. The depth of inspiration is slightly shallow. There is crowding of the central bronchovascular lung markings. No confluent infiltrates, significant pleural effusion or pneumothorax is seen. Report Dictated on --- Final --- Dictating Physician: MD GRIFFITHS LAUREN B Signed Date and Time: 11/22/2020 6:32 pm Signed by: MD GRIFFITHS LAUREN B Transcribed Date and Time: 11/22/2020 6:33 [place] Patient Name: WILL ALVARADO Diagnostic Radiology ACCESSION EXAM DATE/TIME PROCEDURE ORDERING PROVIDER [id number] 11/22/2020 18:30 EST CR Chest Portable [id number] -JOEL NELSON CPT code 99921 Reason For Exam (CR Chest Portable) SOB Report Reason for examination: Shortness of breath. Single portable chest is obtained at 1822 hours. Comparison is dated 06/14/2019. The trachea is midline. The mediastinal and cardiac silhouettes are stable. The depth of inspiration is slightly shallow. There is crowding of the central bronchovascular lung markings. No confluent infiltrates, significant pleural effusion or pneumothorax is seen. Report Dictated on --- Final --- Dictating Physician: MD GRIFFITHS LAUREN B Signed Date and Time: 11/22/2020 6:32 pm Signed by: MD GRIFFITHS LAUREN B Transcribed Date and Time: 11/22/2020 6:33 [place] NM GASTRIC EMPTYINGon 2019 [facility], [facility] - 09/30/2020 2:38 PM EST Patient Name: WILL JACINTO ---Nuc Med--- Exam Date/Time 09/30/2020 14:12:07 EST Exam NM Gastric Emptying Study Ordering Physician MD FLAVIO, CHRIS Wallace Accession Number [id number] CPT4 Codes 89614 () Reason For Exam nausea, diabetees Report Indication: Nausea. History of diabetes. Following the oral administration of 1 mCi of tech 99m sulfur colloid, a gastric emptying scan was performed. There is no significant emptying of radiotracer from the stomach by two hours. Essentially 100 percent of the original activity remains within the stomach at 2 hrs (normal is 19 to 52 percent). Impression: 1. Findings consistent with marked delayed gastric emptying. Essentially 100 percent of the original activity remains within the stomach at 2 hours. Report Dictated on --- Final --- Dictating Physician: DO JACK ANTHONY Signed Date and Time: 09/30/2020 2:37 pm Signed by: DO JACK ANTHONY Transcribed Date and Time: 09/30/2020 2:38 [place] Patient Name: WILL ALVARADO ---Nuc Med--- Exam Date/Time 09/30/2020 14:12:07 EST Exam NM Gastric Emptying Study Ordering Physician MD FLAVIO, CHRIS Wallace Accession Number [id number] CPT4 Codes 05714 () Reason For Exam nausea, diabetees Report Indication: Nausea. History of diabetes. Following the oral administration of 1 mCi of tech 99m sulfur colloid, a gastric emptying scan was performed. There is no significant emptying of radiotracer from the stomach by two hours. Essentially 100 percent of the original activity remains within the stomach at 2 hrs (normal is 19 to 52 percent). Impression: 1. Findings consistent with marked delayed gastric emptying. Essentially 100 percent of the original activity remains within the stomach at 2 hours. Report Dictated on --- Final --- Dictating Physician: DO JACK ANTHONY Signed Date and Time: 09/30/2020 2:37 pm Signed by: DO JACK ANTHONY Transcribed Date and Time: 09/30/2020 2:38 [place] POC Glucose, Whole Bloodon 1 11-30-2019 Glucose [Mass/Vol] mg/dL High 70 - 100 mg/dL [place] Comment on above: Test performed by [employer] ucose meter. Results may be 10%-15% lower than serum/plasma values. (CLIA ID [id number]) Interpretation and review of laboratory results Abnormal [place] Sodium [Moles/Vol] see below [place] Comment on above: No confirmation rece ived. Test Performed by [facility], [address] [place], [place] [id number] [place] [address] POCT Glucoseon 09-30-2020 Glucose [Mass/Vol] 394 mg/dL High 70 - 100 mg/dL [place] Comment on above: Test performed by gl ucose meter. Results may be 10%-15% lower than serum/plasma values. (CLIA ID [id number]) Interpretation and review of laboratory results Abnormal [place] Test Performed by [facility], [address] [place], [place] [address] [place] Glucose [Mass/Vol] 356 mg/dL High 70 - 100 mg/dL [facility] Comment on above: Test performed by gl ucose meter. Results may be 10%-15% lower than serum/plasma values. (CLIA ID [id number]) Interpretation and review of laboratory results Abnormal [facility] [place] Test Performed by [facility] [employer] [facility], [address] [place] [address] [facility] Glucose [Mass/Vol] 257 mg/dL High 70 - 100 mg/dL [facility] Comment on above: Test performed by gl ucose meter. Results may be 10%-15% lower than serum/plasma values. (CLIA ID [id number]) Interpretation and review of laboratory results Abnormal [facility] [place] Test Performed by [facility] [employer] [facility], [address], [place], [place] [address] [facility] POCT Glucoseon 09-29-2020 Glucose [Mass/Vol] 209 mg/dL High 70 - 100 mg/dL [facility] [place] Comment on above: Test performed by gl ucose meter. Results may be 10%-15% lower than serum/plasma values. (CLIA ID [id number]) Interpretation and review of laboratory results Abnormal [facility] [place] Test Performed by [employer] [facility], [address], [place], [place] [address] [facility] [place] Glucose [Mass/Vol] 301 mg/dL High 70 - 100 mg/dL [facility] [place] Comment on above: Test performed by gl ucose meter. Results may be 10%-15% lower than serum/plasma values. (CLIA ID [id number]) Interpretation and review of laboratory results Abnormal [facility] [place] Test Performed by [employer] [facility], [address] [place] [address] [facility] Glucose [Mass/Vol] 200 mg/dL High 70 - 100 mg/dL [facility] [place] Comment on above: Test performed by gl ucose meter. Results may be 10%-15% lower than serum/plasma values. (CLIA ID [id number]) Interpretation and review of laboratory results Abnormal [facility] [place] Test Performed by [employer] [facility], [address], [place], [place] [address] [facility] [place] COVID-19on 09-28-2020 SARS-CoV-2 Not Detected Not Detected [facility] [employer] [place] Comment on above: Not Detected Expected Result: Not Detected _ Real-time, RT-PCR performed on the [employer] System by the [facility] Negative results do not preclude SARS-CoV-2 infection and should not be used as the sole basis for treatment or other patient management decisions. This assay was developed by [employer] and distributed under an Emergency Use Authorization (EUA) granted by the FDA for the qualitative detection of SARS-CoV-2 nucleic acid. Provider and patient fact sheets can be found at https://www.fda.gov/media/180871/download and https://www.fda.gov/media/926792/download. Test Performed by [employer], [address] [place] [address] Specimen Source Comment:Nasopharyngeal Swab [facility] [place] POCT Glucoseon 09-28-2020 Glucose [Mass/Vol] 346 mg/dL High 70 - 100 mg/dL [facility], [place] Comment on above: Test performed by gl ucose meter. Results may be 10%-15% lower than serum/plasma values. (CLIA ID [id number]) Interpretation and review of laboratory results Abnormal [place], [employer] Test Performed by [employer], [address] [place], [place] [address] [facility] [place], [employer] Glucose [Mass/Vol] 385 mg/dL High 70 - 100 mg/dL [facility], [place] Comment on above: Test performed by gl ucose meter. Results may be 10%-15% lower than serum/plasma values. (CLIA ID [id number]) Interpretation and review of laboratory results Abnormal [place] Test Performed by [employer], [address] [place], [place] [address] [facility] [place], [employer] Glucose [Mass/Vol] 393 mg/dL High 70 - 100 mg/dL [facility], [place] Comment on above: Test performed by gl ucose meter. Results may be 10%-15% lower than serum/plasma values. (CLIA ID [id number]) Interpretation and review of laboratory results Abnormal [facility] [place] Test Performed by [facility], [address] [place] [address] [facility] Glucose [Mass/Vol] 322 mg/dL High 70 - 100 mg/dL [facility] [place] Comment on above: Test performed by gl ucose meter. Results may be 10%-15% lower than serum/plasma values. (CLIA ID [id number]) Interpretation and review of laboratory results Abnormal [facility] [place] Test Performed by [facility], [address], [place], [place] [address] [facility] [place] Glucose [Mass/Vol] 325 mg/dL High 70 - 100 mg/dL [facility] [place] Comment on above: Test performed by gl ucose meter. Results may be 10%-15% lower than serum/plasma values. (CLIA ID [id number]) Interpretation and review of laboratory results Abnormal [facility] [place] Test Performed by [facility], [address] [place], [place] [address] [place], [place] [address] [place] Glucose [Mass/Vol] 230 mg/dL High 70 - 100 mg/dL [facility] [place] Comment on above: Test performed by gl ucose meter. Results may be 10%-15% lower than serum/plasma values. (CLIA ID [id number]) Interpretation and review of laboratory results Abnormal [facility] [place] Test Performed by [facility], [address] [place], [place] [address] [facility] Glucose [Mass/Vol] 233 mg/dL High 70 - 100 mg/dL [facility] [place] Comment on above: Test performed by gl ucose meter. Results may be 10%-15% lower than serum/plasma values. (CLIA ID [id number]) Interpretation and review of laboratory results Abnormal [facility] [place] Test Performed by [facility], [address] [place], [place] [address] [facility] [place] POCT Glucoseon 09-27-2020 Glucose [Mass/Vol] 248 mg/dL High 70 - 100 mg/dL [facility] [place] Comment on above: Test performed by gl ucose meter. Results may be 10%-15% lower than serum/plasma values. (CLIA ID [id number]) Interpretation and review of laboratory results Abnormal [employer] [facility] [place] Test Performed by [employer] [facility], [address] [place], [place] [address] [facility] [place] Glucose [Mass/Vol] 275 mg/dL High 70 - 100 mg/dL [facility] [place] Comment on above: Test performed by gl ucose meter. Results may be 10%-15% lower than serum/plasma values. (CLIA ID [id number]) Interpretation and review of laboratory results Abnormal [facility] Test Performed by [employer] [facility], [address] [place] [address] [facility] [place] Glucose [Mass/Vol] 312 mg/dL High 70 - 100 mg/dL [facility] Comment on above: Test performed by gl ucose meter. Results may be 10%-15% lower than serum/plasma values. (CLIA ID [id number]) Interpretation and review of laboratory results Abnormal [facility] Test Performed by [employer] [facility], [address] [place], [place] [address] [facility] Glucose [Mass/Vol] 151 mg/dL High 70 - 100 mg/dL [facility] Comment on above: Test performed by gl ucose meter. Results may be 10%-15% lower than serum/plasma values. (CLIA ID [id number]) Interpretation and review of laboratory results Abnormal [facility] Test Performed by [employer] [facility], [address] [place], [place] [address] [facility] [employer] [place] CBC Auto Differentialon 09-08 Absolute Baso # 0.1 10*3/uL 0 - 0.2 10*3/uL [facility] [employer] [place] Absolute Neut # 7.0 10*3/uL 1.8 - 7 10*3/uL [facility] Basophils/100 WBC (Bld) 1.0 % 0 - 2 % M [facility] [employer] [place] Eosinophils (Bld) [#/Vol] 0.1 10*3/uL 0 - 0.5 10*3/uL [facility] [employer] [place] Eosinophils/100 WBC (Bld) 1.2 % 1 - 6 % [place] Erythrocyte distribution width (RBC) [Ratio] 15.5 % High 11.5 - 14.5 % [place] Granulocytes/100 WBC (Bld) 71.3 % 40 - 80 % [place] Hematocrit (Bld) [Volume fraction] 38.5 % 35 - 47 % [place] Hemoglobin (Bld) [Mass/Vol] 12.6 g/dL 11.7 - 16 g/dL [place] Interpretation and review of laboratory results Abnormal [place] Lymphocytes (Bld) [#/Vol] 1.6 10*3/uL 1 - 4.3 10*3/uL [place] Lymphocytes/100 WBC (Bld) 16.1 % Low 20 - 40 % [place] MCH (RBC) [Entitic mass] 28.5 pg 26 - 34 pg [place] MCHC (RBC) [Mass/Vol] 32.7 % 32 - 36 % [place] MCV (RBC) [Entitic vol] 87.2 fL 79 - 98 fL [place], [place] Monocytes (Bld) [#/Vol] 1.0 10*3/uL High 0 - 0.8 10*3/uL [place] Monocytes/100 WBC (Bld) 10.4 % High 2 - 10 % [place] Platelet mean volume (Bld) [Entitic vol] 8.1 fL 7.4 - 10.4 fL [place] Platelets (Bld) [#/Vol] 508 10*3/uL High 140 - 440 10*3/uL [place] RBC (Bld) [#/Vol] 4.41 10*6/uL 3.8 - 5.2 10*6/uL [place] WBC (Bld) [#/Vol] 9.8 10*3/uL 3.6 - 10.7 10*3/uL [place] Test Performed by [facility], [address], [place], [place] [id number] [place] [address] Comprehensive Metabolic Pane gigi 09-26-2020 Albumin [Mass/Vol] 4.0 g/dL 3.5 - 5 g/dL [place] ALP [Catalytic activity/Vol] 120 U/L 38 - 126 U/L [place] ALT [Catalytic activity/Vol] 127 U/L High 0 - 34 U/L [place] Comment on above: The ALT test is perf ormed by an updated assay method. Please note that the reference intervals have been changed and are now sex specific. Anion gap [Moles/Vol] 12 mmol/L [place] AST [Catalytic activity/Vol] 64 U/L High 15 - 46 U/L [place] Bilirubin Ql (U) 1.4 mg/dL High 0.2 - 1.3 mg/dL [place] Calcium [Mass/Vol] 8.9 mg/dL 8.4 - 10. 4 mg/dL [place] Chloride [Moles/Vol] 97 mmol/L Low 98 - 10 7 mmol/L [place] CO2 [Moles/Vol] 24 mmol/L 22 - 30 mmol/L [place] Creatinine [Mass/Vol] 1.13 mg/dL 0.52 - 1.25 mg/dL [place] EGFR IF NonAfrican [place] 55.1 mL/min Abnormal >60 [place] Comment on above: KDIGO guidelines pro vide the following GFR categories: Stage GFR(ml/min/1.73 m2) Terms G1 >=90 Normal or high G2 60-89 Mildly decreased* G3a 45-59 Mildly to moderately decreased G3b 30-44 Moderately to severely decreased G4 15-29 Severely decreased G5 <15 Kidney failure *Relative to young adult level. In the absence of evidence of kidney damage, neither GFR category G1 nor G2 fulfill the criteria for CKD. The CKD-EPI equation is validated in individuals 18 years of age and older. Currently the best equation for estimating glomerular filtration rate (GFR) from serum creatinine in children is the Bedside Sorto equation. It is less accurate in patients with extremes of muscle mass, restriction of dietary protein, ingestion of creatine, extra-renal metabolism of creatinine, or treatment with medications that affect renal tubular creatinine secretion. GFR/1.73 sq M predicted among blacks MDRD (S/P/Bld) [Vol rate/Area] 63.8 mL/min/{1.73_m2} >60 [place] Glucose [Mass/Vol] 207 mg/dL High 70 - 100 mg/dL [place] Interpretation and review of laboratory results Abnormal [place] Potassium [Moles/Vol] 4.8 mmol/L 3.5 - 5.1 mmol/L [place] Protein [Mass/Vol] 7.7 g/dL 6.3 - 8.2 g/dL [place] Sodium [Moles/Vol] 133 mmol/L Low 135 - 145 mmol/L [place] Urea nitrogen [Mass/Vol] 32 mg/dL High 7 - 20 mg/dL [place] Test Performed by [facility], [address] [place], [place], [place] [id number] [place] [address] POCT Glucoseon 09-26-2020 Glucose [Mass/Vol] 124 mg/dL High 70 - 100 mg/dL [place] Comment on above: Test performed by gl ucose meter. Results may be 10%-15% lower than serum/plasma values. (CLIA ID [id number]) Interpretation and review of laboratory results Abnormal [facility] [place] Test Performed by [facility], [address], [place], [place] [id number] [place] [address] Glucose [Mass/Vol] 225 mg/dL High 70 - 100 mg/dL [place] Comment on above: Test performed by gl ucose meter. Results may be 10%-15% lower than serum/plasma values. (CLIA ID [id number]) Interpretation and review of laboratory results Abnormal [place] Test Performed by [facility], [address], [place], [place] [address] [place] [address] Glucose [Mass/Vol] 308 mg/dL High 70 - 100 mg/dL [place] Comment on above: Test performed by gl ucose meter. Results may be 10%-15% lower than serum/plasma values. (CLIA ID [id number]) Interpretation and review of laboratory results Abnormal [facility] [place] Test Performed by [employer], [address] [place] [address] [facility] [place] Glucose [Mass/Vol] 259 mg/dL High 70 - 100 mg/dL [facility] [place] Comment on above: Test performed by gl ucose meter. Results may be 10%-15% lower than serum/plasma values. (CLIA ID [id number]) Interpretation and review of laboratory results Abnormal [facility] [place] Test Performed by [facility] [employer], [address] [place] [address] [facility] Glucose [Mass/Vol] 223 mg/dL High 70 - 100 mg/dL [facility] [place] Comment on above: Test performed by gl ucose meter. Results may be 10%-15% lower than serum/plasma values. (CLIA ID [id number]) Interpretation and review of laboratory results Abnormal [facility] [place] Test Performed by [employer], [address], [place], [place] [address] [facility] ECHO Complete 2D W Doppler W Coloron 09-25-[address] [facility] Incoming Cardiology Results From [facility]/Jeanne - 09/25/2020 4:03 PM EST TRANSTHORACIC ECHOCARDIOGRAM PATIENT: Will Jacinto STUDY DATE: 09/25/2020 : 1965 AGE: 54 HT/WT: 167.6 cm (66 155.9 kg in) (343 lb) GENDER: F BP: 130 / 87 LOCATION: [facility] PATIENT Inpatient [facility] STATUS: *ORDERING PHYSICIAN: * Priyank Rios MD *READING PHYSICIAN: * Ga Davenport MD *CPAS: * Jayda Richardson INDICATIONS: SVT. CONCLUSIONS SUMMARY: Procedure narrative: Image quality was uninterpretable. The study was technically limited due to poor acoustic window availability, body habitus, off axis, and supine position. Intravenous imaging enhancement (Definity) was administered to opacify the chamber. Definity lot #: [id number]. STUDY DATA: Complete transthoracic echocardiogram. Procedure: Image quality was uninterpretable. The study was technically limited due to poor acoustic window availability, body habitus, off axis, and supine position. Intravenous imaging enhancement (Definity) was administered to opacify the chamber. Definity lot #: [id number]. M-mode, complete 2D, complete spectral Doppler, and color flow Doppler images were acquired and archived for permanent storage and are available for subsequent review. Study status: Routine. Patient status: Inpatient. FINDINGS LEFT VENTRICLE: Poorly visualized. RIGHT VENTRICLE: Poorly visualized. LEFT ATRIUM: Not visualized. RIGHT ATRIUM: Not visualized. MITRAL VALVE: Not well visualized. AORTIC VALVE: Not well visualized. TRICUSPID VALVE: Not well visualized. PULMONIC VALVE: Not well visualized. AORTA: The aorta is not visualized. Electronically signed by Ga Davenport MD 09/25/2020 16:02 Prior Signatures: [facility] [place], [place] TRANSTHORACIC ECHOCARDIOGRAM PATIENT: Will Jacinto STUDY DATE: 09/25/2020 : 1965 AGE: 54 HT/WT: 167.6 cm (66 155.9 kg in) (343 lb) GENDER: F BP: 130 / 87 LOCATION: [facility] PATIENT Inpatient [facility] STATUS: *ORDERING PHYSICIAN: * Priyank Rios MD *READING PHYSICIAN: * Ga Davenport MD *CPAS: * Jayda Richardson INDICATIONS: SVT. CONCLUSIONS SUMMARY: Procedure narrative: Image quality was uninterpretable. The study was technically limited due to poor acoustic window availability, body habitus, off axis, and supine position. Intravenous imaging enhancement (Definity) was administered to opacify the chamber. Definity lot #: [id number]. STUDY DATA: Complete transthoracic echocardiogram. Procedure: Image quality was uninterpretable. The study was technically limited due to poor acoustic window availability, body habitus, off axis, and supine position. Intravenous imaging enhancement (Definity) was administered to opacify the chamber. Definity lot #: [id number]. M-mode, complete 2D, complete spectral Doppler, and color flow Doppler images were acquired and archived for permanent storage and are available for subsequent review. Study status: Routine. Patient status: Inpatient. FINDINGS LEFT VENTRICLE: Poorly visualized. RIGHT VENTRICLE: Poorly visualized. LEFT ATRIUM: Not visualized. RIGHT ATRIUM: Not visualized. MITRAL VALVE: Not well visualized. AORTIC VALVE: Not well visualized. TRICUSPID VALVE: Not well visualized. PULMONIC VALVE: Not well visualized. AORTA: The aorta is not visualized. Electronically signed by Ga Davenport MD 09/25/2020 16:02 Prior Signatures: [facility] POCT Glucoseon 09-25-2020 Glucose [Mass/Vol] 126 mg/dL High 70 - 100 mg/dL [facility] Comment on above: Test performed by gl ucose meter. Results may be 10%-15% lower than serum/plasma values. (CLIA ID [id number]) Interpretation and review of laboratory results Abnormal [facility] Test Performed by [facility], [address], [place], [place] [address] [facility] Glucose [Mass/Vol] 124 mg/dL High 70 - 100 mg/dL [place] Comment on above: Test performed by gl ucose meter. Results may be 10%-15% lower than serum/plasma values. (CLIA ID [id number]) Interpretation and review of laboratory results Abnormal [facility] Test Performed by [facility], [address], [place], [place] [address] [facility] Glucose [Mass/Vol] 173 mg/dL High 70 - 100 mg/dL [place], [employer] Comment on above: Test performed by gl ucose meter. Results may be 10%-15% lower than serum/plasma values. (CLIA ID [id number]) Interpretation and review of laboratory results Abnormal [facility] Test Performed by [facility], [address], [place], [place] [address] [facility] [employer] Glucose [Mass/Vol] 121 mg/dL High 70 - 100 mg/dL [place], [employer] Comment on above: Test performed by gl ucose meter. Results may be 10%-15% lower than serum/plasma values. (CLIA ID [id number]) Interpretation and review of laboratory results Abnormal [place] Test Performed by [facility], [address], [place], [place] [address] [place] XR ABDOMEN (KUB) (SINGLE AP VIEW)on 09-25-2020 [facility] Incoming Radiology Results From [facility] - 09/25/2020 3:10 PM EST Patient Name: WILL JACINTO ---Diagnostic Radiology--- Exam Date/Time 09/25/2020 14:00:36 EST Exam CR Abdomen AP Ordering Physician DO HILL LISA Accession Number [id number] CPT4 Codes 82669 () Reason For Exam ileus Report CLINICAL INFORMATION: Abdominal distention. Ileus. Abdomen, KUB: AP supine radiographs the abdomen are compared to the examination of the previous day. There is a distended gas filled stomach significantly larger than on the prior examination. There continue to be minimally dilated loops of gas containing small bowel throughout the abdomen. Gas is also seen in normal caliber right and distal descending colon. The pattern is nonspecific and could be related to mild small bowel ileus or aerophagia. No other changes. IMPRESSION: 1. Gastric distention. Consider gastroparesis or gastric outlet obstruction or gastric ileus. 2. Nonspecific bowel gas pattern which could be related to mild small bowel ileus or aerophagia. Report Dictated on --- Final --- Dictating Physician: MD BARRAGAN HARLAN Signed Date and Time: 09/25/2020 3:08 pm Signed by: MD BARRAGAN HARLAN Transcribed Date and Time: 09/25/2020 3:09 [place] Patient Name: WILL ALVARADO ---Diagnostic Radiology--- Exam Date/Time 09/25/2020 14:00:36 EST Exam CR Abdomen AP Ordering Physician DO HILL LISA Accession Number [id number] CPT4 Codes 83982 () Reason For Exam ileus Report CLINICAL INFORMATION: Abdominal distention. Ileus. Abdomen, KUB: AP supine radiographs the abdomen are compared to the examination of the previous day. There is a distended gas filled stomach significantly larger than on the prior examination. There continue to be minimally dilated loops of gas containing small bowel throughout the abdomen. Gas is also seen in normal caliber right and distal descending colon. The pattern is nonspecific and could be related to mild small bowel ileus or aerophagia. No other changes. IMPRESSION: 1. Gastric distention. Consider gastroparesis or gastric outlet obstruction or gastric ileus. 2. Nonspecific bowel gas pattern which could be related to mild small bowel ileus or aerophagia. Report Dictated on --- Final --- Dictating Physician: MD BARRAGAN HARLAN Signed Date and Time: 09/25/2020 3:08 pm Signed by: MD BARRAGAN HARLAN Transcribed Date and Time: 09/25/2020 3:09 [place], [place] CBC Auto Differentialon 11- Absolute Baso # 0.0 10*3/uL 0 - 0.2 10*3/uL [place] Absolute Neut # 5.3 10*3/uL 1.8 - 7 10*3/uL [place] Basophils/100 WBC (Bld) 0.4 % 0 - 2 % M [place], [place] Eosinophils (Bld) [#/Vol] 0.1 10*3/uL 0 - 0.5 10*3/uL [place] Eosinophils/100 WBC (Bld) 1.6 % 1 - 6 % [place] Erythrocyte distribution width (RBC) [Ratio] 15.8 % High 11.5 - 14.5 % [place] Granulocytes/100 WBC (Bld) 74.9 % 40 - 80 % [place] Hematocrit (Bld) [Volume fraction] 59.6 % High 35 - 47 % [place] Hemoglobin (Bld) [Mass/Vol] 19.3 g/dL High 11.7 - 16 g/dL [place] Interpretation and review of laboratory results Abnormal [place] Lymphocytes (Bld) [#/Vol] 1.0 10*3/uL 1 - 4.3 10*3/uL [place] Lymphocytes/100 WBC (Bld) 14.1 % Low 20 - 40 % [place] MCH (RBC) [Entitic mass] 28.3 pg 26 - 34 pg [place] MCHC (RBC) [Mass/Vol] 32.4 % 32 - 36 % [place], [place] MCV (RBC) [Entitic vol] 87.2 fL 79 - 98 fL [place], [place] Monocytes (Bld) [#/Vol] 0.6 10*3/uL 0 - 0.8 10*3/uL [place] Monocytes/100 WBC (Bld) 9.0 % 2 - 10 % [place], [place] Platelet mean volume (Bld) [Entitic vol] 7.5 fL 7.4 - 10.4 fL [place] Platelets (Bld) [#/Vol] 215 10*3/uL 140 - 440 10*3/uL [place] RBC (Bld) [#/Vol] 6.83 10*6/uL High 3.8 - 5.2 10*6/uL [place] WBC (Bld) [#/Vol] 7.1 10*3/uL 3.6 - 10.7 10*3/uL [place] Test Performed by [facility], [address], [place], [place] [address] [place] Comprehensive Metabolic Pane gigi 09-24-2020 Albumin [Mass/Vol] 3.6 g/dL 3.5 - 5 g/dL [place] ALP [Catalytic activity/Vol] 116 U/L 38 - 126 U/L [place] ALT [Catalytic activity/Vol] 113 U/L High 0 - 34 U/L [place] Comment on above: The ALT test is perf ormed by an updated assay method. Please note that the reference intervals have been changed and are now sex specific. Anion gap [Moles/Vol] 8 mmol/L [place], [place] AST [Catalytic activity/Vol] 53 U/L High 15 - 46 U/L [place] Bilirubin Ql (U) 0.9 mg/dL 0.2 - 1.3 mg/dL [place] Calcium [Mass/Vol] 8.7 mg/dL 8.4 - 10. 4 mg/dL [place] Chloride [Moles/Vol] 99 mmol/L 98 - 10 7 mmol/L [place] CO2 [Moles/Vol] 27 mmol/L 22 - 30 mmol/L [place] Creatinine [Mass/Vol] 1.97 mg/dL High 0.52 - 1.25 mg/dL [place] EGFR IF NonAfrican [place] 28.1 mL/min Abnormal >60 [place] Comment on above: KDIGO guidelines pro vide the following GFR categories: Stage GFR(ml/min/1.73 m2) Terms G1 >=90 Normal or high G2 60-89 Mildly decreased* G3a 45-59 Mildly to moderately decreased G3b 30-44 Moderately to severely decreased G4 15-29 Severely decreased G5 <15 Kidney failure *Relative to young adult level. In the absence of evidence of kidney damage, neither GFR category G1 nor G2 fulfill the criteria for CKD. The CKD-EPI equation is validated in individuals 18 years of age and older. Currently the best equation for estimating glomerular filtration rate (GFR) from serum creatinine in children is the Bedside Sorto equation. It is less accurate in patients with extremes of muscle mass, restriction of dietary protein, ingestion of creatine, extra-renal metabolism of creatinine, or treatment with medications that affect renal tubular creatinine secretion. GFR/1.73 sq M predicted among blacks MDRD (S/P/Bld) [Vol rate/Area] 32.6 mL/min/{1.73_m2} Abnormal >60 [place] Glucose [Mass/Vol] 110 mg/dL High 70 - 100 mg/dL [place] Interpretation and review of laboratory results Abnormal [place] Potassium [Moles/Vol] 3.7 mmol/L 3.5 - 5.1 mmol/L [place] Protein [Mass/Vol] 6.7 g/dL 6.3 - 8.2 g/dL [place] Sodium [Moles/Vol] 133 mmol/L Low 135 - 145 mmol/L [place] Urea nitrogen [Mass/Vol] 29 mg/dL High 7 - 20 mg/dL [facility], [place] Test Performed by [facility], [address] MAGNESIUMon 09-24-2020 Magnesium [Mass/Vol] 1.7 mg/dL 1.6 - 2 .3 mg/dL [place] Test Performed by [facility], [address] [place], [place] [id number] [place] [address] [place] POCT Glucoseon 09-24-2020 Glucose [Mass/Vol] 119 mg/dL High 70 - 100 mg/dL [place] Comment on above: Test performed by gl ucose meter. Results may be 10%-15% lower than serum/plasma values. (CLIA ID [id number]) Interpretation and review of laboratory results Abnormal [facility] [place], [place] Test Performed by [facility], [address] Glucose [Mass/Vol] 187 mg/dL High 70 - 100 mg/dL [place] Comment on above: Test performed by gl ucose meter. Results may be 10%-15% lower than serum/plasma values. (CLIA ID [id number]) Interpretation and review of laboratory results Abnormal [facility] [place], [place] Test Performed by [facility], [address] Glucose [Mass/Vol] 237 mg/dL High 70 - 100 mg/dL [place] Comment on above: Test performed by gl ucose meter. Results may be 10%-15% lower than serum/plasma values. (CLIA ID [id number]) Interpretation and review of laboratory results [facility]normal [facility] [place] [place] Test Performed by [facility], [address], [place] Glucose [Mass/Vol] 119 mg/dL High 70 - 100 mg/dL [place] Comment on above: Test performed by gl ucose meter. Results may be 10%-15% lower than serum/plasma values. (CLIA ID [id number]) Interpretation and review of laboratory results Abnormal [facility] Test Performed by [facility], [address], [place] [address] [facility] Surgical Pathologyon 020 Sodium [Moles/Vol] SEE BELOW [facility] 1 [id number] [facility]ORATORY MEDICINE [address] [place], [place] [id number] Fax - FINAL SURGICAL PATHOLOGY REPORT NAME: WILL JACINTO : 1965 54 Y F BILLING NO.: [id number] LOCATION: [facility] 260 1 PROCEDURE 09/19/2020 DATE: SURGEON: SERGIO SIBLEY D.O. RECEIVED 09/19/2020 DATE: ATTENDING: NABIL HILL DO REPORT DATE: 09/24/2020 COPIES TO: DIAGNOSIS: A. 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 Comment: The biopsy shows gastric foveolar (mucin cell) metaplasia, moderate acute inflammation in lamina propria and overall preserved villous pattern, consistent with chronic peptic duodenitis. Focal surface ulceration is also noted. B. 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 Comment: The biopsy shows gastric foveolar (mucin cell) metaplasia, moderate acute inflammation in lamina propria and overall preserved villous pattern, consistent with chronic peptic duodenitis. C. STOMACH, ANTRUM, BIOPSY - REACTIVE GASTROPATHY. Comment: H&E stain is negative for H. pylori. No significant active inflammation present. Negative for intestinal metaplasia or malignancy. D. ESOPHAGUS, DISTAL, BIOPSY - ACTIVE ESOPHAGITIS WITH ULCER DEBRIS. Comment: The biopsy shows squamous mucosa with active inflammation and fibrinopurulent material consistent with ulcer debris. No viral cytopathic changes identified and immunostains for HSV1, HSV2, and CMV are negative. H&E and GMS stains are negative for homa. No evidence of intestinal metaplasia or malignancy in these samplings; however, evaluation is limited by the marked reactive and inflammatory changes present. If there is clinical concern for a neoplastic process, consider repeat biopsy after appropriate therapy. CRH/CRH Signature> KEMAR ABEBE M.D. CLINICAL INFORMATION: LA grade D reflux esophagitis SPECIMEN: (A) DUODENUM, BIOPSY (B) DUODENUM, BIOPSY (C) GASTRIC BIOPSY (D) ESOPHAGUS BIOPSY GROSS DESCRIPTION: A. Second part of duodenum" Received in formalin are two segments of reddy tissue 0.2 cm each. The specimen is entirely submitted in a single cassette. B. "Duodenal bulb" Received in formalin is a segment of reddy tissue 0.4 cm. The specimen is entirely submitted in a single cassette. C. "Antrum" Received in formalin is a segment of reddy tissue 0.4 cm. The specimen is entirely submitted in a single cassette. D. Distal esophagus Received in formalin are wispy fragments of cazares tissue aggregating to 0.4 x 0.4 cm. The specimen is entirely submitted in a single cassette. [id number] Disclaimer: The following statement applies to all immunohistochemistry, in situ hybridization, molecular studies, and immunofluorescence testing. The use of one or more reagents in the above tests is regulated as an analyte specific reagent (ASR). These tests were developed and their performance characteristics determined by the clinical laboratories of [facility]. They have not been cleared by the US Food and Drug Administration (FDA). The FDA has determined that such clearance or approval is not necessary. All the above immunostains were performed on paraffin embedded tissue. Appropriate positive and negative controls (where applicable) were run in parallel with the patient's specimen; these controls showed expected staining pattern, with acceptable intensity of staining. Immunohistochemical assays have not been validated on decalcified tissues. Results should be interpreted with caution given the raised possibility of false negativity on decalcified specimens. Case reviewed at [facility] [address] [place] [address]. DEPARTMENT OF PATHOLOGY AND LABORATORY MEDICINE [place], [place] [address] [place] Troponinon 09-24-2020 Troponin I.cardiac [Mass/Vol] ng/mL 0 - 0.034 ng/mL [place] Comment on above: . Test Performed by [facility], [address] [place], [place] [address] Chemistry specimen is slightly hemolyzed. Interpret results with caution. [place] XR ABDOMEN (KUB) (SINGLE AP VIEW)on 09-24-2020 [facility] Incoming Radiology Results From [facility] - 09/24/2020 9:24 AM EST Patient Name: WILL JACINTO ---Diagnostic Radiology--- Exam Date/Time 09/24/2020 09:15:19 EST Exam CR Abdomen AP Ordering Physician DO HILL LISA Accession Number [id number] CPT4 Codes 67280 () Reason For Exam ileus Report Abdomen KUB Clinical: Ileus Supine views of the abdomen were obtained. COMPARISON: September 23, 2020 Mild gaseous distention of the stomach. Few mildly dilated mid abdominal small bowel loops are seen, appearing slightly less prominent compared to the prior days exam and again raising question of mild small bowel ileus. Scattered stool and bowel gas within the distribution of the colon. Osseous degenerative changes. No definite pathologic calcifications are noted. Evaluation for free air is limited due to the lack of upright or lateral decubitus views. Report Dictated on Workstation: [facility] --- Final --- Dictating Physician: MD UNDERWOOD BRIAN Signed Date and Time: 09/24/2020 9:22 am Signed by: MD UNDERWOOD BRIAN Transcribed Date and Time: 09/24/2020 9:23 [place] Patient Name: WILL ALVARADO ---Diagnostic Radiology--- Exam Date/Time 09/24/2020 09:15:19 EST Exam CR Abdomen AP Ordering Physician DO HILL LISA Accession Number [id number] CPT4 Codes 95663 () Reason For Exam ileus Report Abdomen KUB Clinical: Ileus Supine views of the abdomen were obtained. COMPARISON: September 23, 2020 Mild gaseous distention of the stomach. Few mildly dilated mid abdominal small bowel loops are seen, appearing slightly less prominent compared to the prior days exam and again raising question of mild small bowel ileus. Scattered stool and bowel gas within the distribution of the colon. Osseous degenerative changes. No definite pathologic calcifications are noted. Evaluation for free air is limited due to the lack of upright or lateral decubitus views. Report Dictated on Workstation: [email or web address] --- Final --- Dictating Physician: MD UNDERWOOD BRIAN Signed Date and Time: 09/24/2020 9:22 am Signed by: MD UNDERWOOD BRIAN Transcribed Date and Time: 09/24/2020 9:23 [place] CBC Auto Differentialon 11- Absolute Baso # 0.1 10*3/uL 0 - 0.2 10*3/uL [place] Absolute Neut # 8.9 10*3/uL High 1.8 - 7 10*3/uL [place] Basophils/100 WBC (Bld) 0.7 % 0 - 2 % M [place], [place] Eosinophils (Bld) [#/Vol] 0.1 10*3/uL 0 - 0.5 10*3/uL [place] Eosinophils/100 WBC (Bld) 1.1 % 1 - 6 % [place] Erythrocyte distribution width (RBC) [Ratio] 15.2 % High 11.5 - 14.5 % [place] Granulocytes/100 WBC (Bld) 73.0 % 40 - 80 % [place] Hematocrit (Bld) [Volume fraction] 35.4 % 35 - 47 % [place] Hemoglobin (Bld) [Mass/Vol] 11.8 g/dL 11.7 - 16 g/dL [place] Interpretation and review of laboratory results Abnormal [place] Lymphocytes (Bld) [#/Vol] 1.9 10*3/uL 1 - 4.3 10*3/uL [place] Lymphocytes/100 WBC (Bld) 15.7 % Low 20 - 40 % [place] MCH (RBC) [Entitic mass] 29.0 pg 26 - 34 pg [place] MCHC (RBC) [Mass/Vol] 33.4 % 32 - 36 % [place] MCV (RBC) [Entitic vol] 86.8 fL 79 - 98 fL [place], [place] Monocytes (Bld) [#/Vol] 1.2 10*3/uL High 0 - 0.8 10*3/uL [place] Monocytes/100 WBC (Bld) 9.5 % 2 - 10 % [place], [place] Platelet mean volume (Bld) [Entitic vol] 7.3 fL Low 7.4 - 10.4 fL [place] Platelets (Bld) [#/Vol] 454 10*3/uL High 140 - 440 10*3/uL [place] RBC (Bld) [#/Vol] 4.08 10*6/uL 3.8 - 5.2 10*6/uL [place] WBC (Bld) [#/Vol] 12.1 10*3/uL High 3.6 - 10.7 10*3/uL [place] Test Performed by [facility], [address], [place], [place] [address] [place] Comprehensive Metabolic Pane gigi 09-23-2020 Albumin [Mass/Vol] 3.7 g/dL 3.5 - 5 g/dL [place] ALP [Catalytic activity/Vol] 150 U/L High 38 - 126 U/L [place] ALT [Catalytic activity/Vol] 126 U/L High 0 - 34 U/L [place] Comment on above: The ALT test is perf ormed by an updated assay method. Please note that the reference intervals have been changed and are now sex specific. Anion gap [Moles/Vol] 10 mmol/L [place], [place] AST [Catalytic activity/Vol] 42 U/L 15 - 46 U/L [place] Bilirubin Ql (U) 0.9 mg/dL 0.2 - 1.3 mg/dL [place] Calcium [Mass/Vol] 8.6 mg/dL 8.4 - 10. 4 mg/dL [place] Chloride [Moles/Vol] 93 mmol/L Low 98 - 10 7 mmol/L [place] CO2 [Moles/Vol] 24 mmol/L 22 - 30 mmol/L [place] Creatinine [Mass/Vol] 1.05 mg/dL 0.52 - 1.25 mg/dL [place] EGFR IF NonAfrican [place] 60.2 mL/min >60 [place] Comment on above: KDIGO guidelines pro vide the following GFR categories: Stage GFR(ml/min/1.73 m2) Terms G1 >=90 Normal or high G2 60-89 Mildly decreased* G3a 45-59 Mildly to moderately decreased G3b 30-44 Moderately to severely decreased G4 15-29 Severely decreased G5 <15 Kidney failure *Relative to young adult level. In the absence of evidence of kidney damage, neither GFR category G1 nor G2 fulfill the criteria for CKD. The CKD-EPI equation is validated in individuals 18 years of age and older. Currently the best equation for estimating glomerular filtration rate (GFR) from serum creatinine in children is the Bedside Sorto equation. It is less accurate in patients with extremes of muscle mass, restriction of dietary protein, ingestion of creatine, extra-renal metabolism of creatinine, or treatment with medications that affect renal tubular creatinine secretion. GFR/1.73 sq M predicted among blacks MDRD (S/P/Bld) [Vol rate/Area] 69.8 mL/min/{1.73_m2} >60 [place] Glucose [Mass/Vol] 242 mg/dL High 70 - 100 mg/dL [place] Interpretation and review of laboratory results Abnormal [place] Potassium [Moles/Vol] 3.9 mmol/L 3.5 - 5.1 mmol/L [place] Protein [Mass/Vol] 7.2 g/dL 6.3 - 8.2 g/dL [place] Sodium [Moles/Vol] 127 mmol/L Low 135 - 145 mmol/L [place] Urea nitrogen [Mass/Vol] 26 mg/dL High 7 - 20 mg/dL [place] Test Performed by [facility], [address], [place], [place] [id number] [place] [address] POC Glucose, Whole Bloodon 1 11-23-2019 Glucose [Mass/Vol] mg/dL High 70 - 100 mg/dL [place] Comment on above: Test performed by gl ucose meter. Results may be 10%-15% lower than serum/plasma values. (CLIA ID [id number]) Interpretation and review of laboratory results Abnormal [place] Sodium [Moles/Vol] see below [place] Comment on above: No confirmation rece ived. Test Performed by [facility], [address], [place], [place] [id number] [place] [address] POCT Glucoseon 09-23-2020 Glucose [Mass/Vol] 171 mg/dL High 70 - 100 mg/dL [place] Comment on above: Test performed by gl ucose meter. Results may be 10%-15% lower than serum/plasma values. (CLIA ID [id number]) Interpretation and review of laboratory results Abnormal [place] Test Performed by [facility], [address], [place], [place] [address] [place] Glucose [Mass/Vol] 278 mg/dL High 70 - 100 mg/dL [place] Comment on above: Test performed by gl ucose meter. Results may be 10%-15% lower than serum/plasma values. (CLIA ID [id number]) Interpretation and review of laboratory results Abnormal [facility] [place], [place] Test Performed by [facility], [address] [place] [address] [facility] [place] Glucose [Mass/Vol] 401 mg/dL High 70 - 100 mg/dL [facility] [place] Comment on above: Test performed by gl ucose meter. Results may be 10%-15% lower than serum/plasma values. (CLIA ID [id number]) Interpretation and review of laboratory results Abnormal [facility] Test Performed by [facility], [address] [place], [place] [address] [facility] Glucose [Mass/Vol] 348 mg/dL High 70 - 100 mg/dL [facility] Comment on above: Test performed by gl ucose meter. Results may be 10%-15% lower than serum/plasma values. (CLIA ID [id number]) Interpretation and review of laboratory results Abnormal [facility] Test Performed by [facility], [address] [place] [address] [facility] Glucose [Mass/Vol] 231 mg/dL High 70 - 100 mg/dL [facility] Comment on above: Test performed by gl ucose meter. Results may be 10%-15% lower than serum/plasma values. (CLIA ID [id number]) Interpretation and review of laboratory results Abnormal [facility] Test Performed by [facility], [address] [place], [place] [address] [facility] XR ABDOMEN (KUB) (SINGLE AP VIEW)on 09-23-2020 [facility] - 09/23/2020 11:02 AM EST Patient Name: WILL JACINTO ---Diagnostic Radiology--- Exam Date/Time 09/23/2020 10:26:17 EST Exam CR Abdomen AP Ordering Physician MD JOANN, [place]LA[place] aGrcia Accession Number [id number] CPT4 Codes 78198 () Reason For Exam ileus, improving Report Abdomen: 09/23/2020. Clinical Information: Ileus. Findings: A single supine view of the abdomen was compared to prior day's study. There continue to be mildly dilated loops of small bowel centrally with some distal gas. The findings are most likely consistent with a mild ileus. Report Dictated on --- Final --- Dictating Physician: MD ALLEN RISA Signed Date and Time: 09/23/2020 11:00 am Signed by: MD ALLEN RISA Transcribed Date and Time: 09/23/2020 11:01 [place] Patient Name: WILL ALVARADO ---Diagnostic Radiology--- Exam Date/Time 09/23/2020 10:26:17 EST Exam CR Abdomen AP Ordering Physician MD JOANN, [place]LA[place] Garcia Accession Number [id number] CPT4 Codes 71944 () Reason For Exam ileus, improving Report Abdomen: 09/23/2020. Clinical Information: Ileus. Findings: A single supine view of the abdomen was compared to prior day's study. There continue to be mildly dilated loops of small bowel centrally with some distal gas. The findings are most likely consistent with a mild ileus. Report Dictated on --- Final --- Dictating Physician: MD ALLEN RISA Signed Date and Time: 09/23/2020 11:00 am Signed by: MD ALLEN RISA Transcribed Date and Time: 09/23/2020 11:01 [place] CBC Auto Differentialon 09-08 Absolute Baso # 0.1 10*3/uL 0 - 0.2 10*3/uL [place] Absolute Neut # 6.8 10*3/uL 1.8 - 7 10*3/uL [place] Basophils/100 WBC (Bld) 0.9 % 0 - 2 % M [place], [place] Eosinophils (Bld) [#/Vol] 0.2 10*3/uL 0 - 0.5 10*3/uL [place] Eosinophils/100 WBC (Bld) 1.9 % 1 - 6 % [place] Erythrocyte distribution width (RBC) [Ratio] 14.9 % High 11.5 - 14.5 % [place] Granulocytes/100 WBC (Bld) 69.3 % 40 - 80 % [place] Hematocrit (Bld) [Volume fraction] 35.1 % 35 - 47 % [place] Hemoglobin (Bld) [Mass/Vol] 11.8 g/dL 11.7 - 16 g/dL [place] Interpretation and review of laboratory results Abnormal [place] Lymphocytes (Bld) [#/Vol] 1.8 10*3/uL 1 - 4.3 10*3/uL [place] Lymphocytes/100 WBC (Bld) 18.3 % Low 20 - 40 % [place] MCH (RBC) [Entitic mass] 29.0 pg 26 - 34 pg [place] MCHC (RBC) [Mass/Vol] 33.5 % 32 - 36 % [place] MCV (RBC) [Entitic vol] 86.4 fL 79 - 98 fL [place], [place] Monocytes (Bld) [#/Vol] 0.9 10*3/uL High 0 - 0.8 10*3/uL [place] Monocytes/100 WBC (Bld) 9.6 % 2 - 10 % [place], [place] Platelet mean volume (Bld) [Entitic vol] 7.3 fL Low 7.4 - 10.4 fL [place] Platelets (Bld) [#/Vol] 474 10*3/uL High 140 - 440 10*3/uL [place] RBC (Bld) [#/Vol] 4.07 10*6/uL 3.8 - 5.2 10*6/uL [place] WBC (Bld) [#/Vol] 9.7 10*3/uL 3.6 - 10.7 10*3/uL [place] Test Performed by [facility], [address], [place], [place] [address] [place] Comprehensive Metabolic Pane gigi 09-22-2020 Albumin [Mass/Vol] 3.7 g/dL 3.5 - 5 g/dL [place] ALP [Catalytic activity/Vol] 125 U/L 38 - 126 U/L [place] ALT [Catalytic activity/Vol] 137 U/L High 0 - 34 U/L [place] Comment on above: The ALT test is perf ormed by an updated assay method. Please note that the reference intervals have been changed and are now sex specific. Anion gap [Moles/Vol] 5 mmol/L [place] AST [Catalytic activity/Vol] 51 U/L High 15 - 46 U/L [place] Bilirubin Ql (U) 0.7 mg/dL 0.2 - 1.3 mg/dL [place] Calcium [Mass/Vol] 9.0 mg/dL 8.4 - 10. 4 mg/dL [place] Chloride [Moles/Vol] 94 mmol/L Low 98 - 10 7 mmol/L [place] CO2 [Moles/Vol] 29 mmol/L 22 - 30 mmol/L [place] Creatinine [Mass/Vol] 0.88 mg/dL 0.52 - 1.25 mg/dL [place] EGFR IF NonAfrican [place] 74.5 mL/min >60 [place] Comment on above: KDIGO guidelines pro vide the following GFR categories: Stage GFR(ml/min/1.73 m2) Terms G1 >=90 Normal or high G2 60-89 Mildly decreased* G3a 45-59 Mildly to moderately decreased G3b 30-44 Moderately to severely decreased G4 15-29 Severely decreased G5 <15 Kidney failure *Relative to young adult level. In the absence of evidence of kidney damage, neither GFR category G1 nor G2 fulfill the criteria for CKD. The CKD-EPI equation is validated in individuals 18 years of age and older. Currently the best equation for estimating glomerular filtration rate (GFR) from serum creatinine in children is the Bedside Sorto equation. It is less accurate in patients with extremes of muscle mass, restriction of dietary protein, ingestion of creatine, extra-renal metabolism of creatinine, or treatment with medications that affect renal tubular creatinine secretion. GFR/1.73 sq M predicted among blacks MDRD (S/P/Bld) [Vol rate/Area] 86.4 mL/min/{1.73_m2} >60 [place] Glucose [Mass/Vol] 269 mg/dL High 70 - 100 mg/dL [place] Interpretation and review of laboratory results Abnormal [place] Potassium [Moles/Vol] 4.1 mmol/L 3.5 - 5.1 mmol/L [place] Protein [Mass/Vol] 6.9 g/dL 6.3 - 8.2 g/dL [place] Sodium [Moles/Vol] 129 mmol/L Low 135 - 145 mmol/L [place] Urea nitrogen [Mass/Vol] 21 mg/dL High 7 - 20 mg/dL [place] Test Performed by [facility], [address], [address] POCT Glucoseon 09-22-2020 Glucose [Mass/Vol] 363 mg/dL High 70 - 100 mg/dL [place] Comment on above: Test performed by gl ucose meter. Results may be 10%-15% lower than serum/plasma values. (CLIA ID [id number]) Interpretation and review of laboratory results Abnormal [facility] [place] Test Performed by [facility], [address], [address] Glucose [Mass/Vol] 355 mg/dL High 70 - 100 mg/dL [place] Comment on above: Test performed by gl ucose meter. Results may be 10%-15% lower than serum/plasma values. (CLIA ID [id number]) Interpretation and review of laboratory results Abnormal [facility] [place] Test Performed by [facility], [address], [place], [place] [address] [place] [address] Glucose [Mass/Vol] 328 mg/dL High 70 - 100 mg/dL [place] Comment on above: Test performed by gl ucose meter. Results may be 10%-15% lower than serum/plasma values. (CLIA ID [id number]) Interpretation and review of laboratory results Abnormal [facility], [place] Test Performed by [facility], [address], [place] Glucose [Mass/Vol] 277 mg/dL High 70 - 100 mg/dL [place] Comment on above: Test performed by gl ucose meter. Results may be 10%-15% lower than serum/plasma values. (CLIA ID [id number]) Interpretation and review of laboratory results Abnormal [place] Test Performed by [facility], [address], [place], [place] [address] [place] XR ABDOMEN (KUB) (SINGLE AP VIEW)on 09-22-2020 Patient Name: WILL ALVARADO ---Diagnostic Radiology--- Exam Date/Time 09/22/2020 07:41:53 EST Exam CR Abdomen AP Ordering Physician MD DAVID RICHARD H Accession Number [id number] CPT4 Codes 34876 () Reason For Exam ileus Report ABDOMEN: CLINICAL INDICATION: Ileus. TECHNIQUE: AP views of the abdomen were obtained. COMPARISON: 09/20/2020 FINDINGS: Nonspecific bowel gas pattern with nondistended air-filled loops of small bowel and colon. No abnormal soft tissue calcifications are noted. Degenerative changes are noted throughout the thoracic and lumbar spine.. IMPRESSION: Nonspecific nonobstructive bowel gas pattern with air-filled loops of small bowel and colon. Report Dictated on --- Final --- Dictating Physician: DO ARREOLA RACHEL Signed Date and Time: 09/22/2020 8:31 am Signed by: DO ARREOLA RACHEL Transcribed Date and Time: 09/22/2020 8:32 [place], [place], [facility] Incoming [facility] - 09/22/2020 8:33 AM EST Patient Name: WILL JACINTO ---Diagnostic Radiology--- Exam Date/Time 09/22/2020 07:41:53 EST Exam CR Abdomen AP Ordering Physician MD DAVID RICHARD H Accession Number [id number] CPT4 Codes 74683 () Reason For Exam ileus Report ABDOMEN: CLINICAL INDICATION: Ileus. TECHNIQUE: AP views of the abdomen were obtained. COMPARISON: 09/20/2020 FINDINGS: Nonspecific bowel gas pattern with nondistended air-filled loops of small bowel and colon. No abnormal soft tissue calcifications are noted. Degenerative changes are noted throughout the thoracic and lumbar spine.. IMPRESSION: Nonspecific nonobstructive bowel gas pattern with air-filled loops of small bowel and colon. Report Dictated on --- Final --- Dictating Physician: DO ARREOLA RACHEL Signed Date and Time: 09/22/2020 8:31 am Signed by: DO ARREOLA RACHEL Transcribed Date and Time: 09/22/2020 8:32 [facility] [place] GLUCOSEon 09-21-2020 Glucose [Mass/Vol] 461 mg/dL Critically high 70 - 1 00 mg/dL [facility] [place] Interpretation and review of laboratory results Abnormal [facility] Test Performed by [facility], [address] [place], [place] [address] [facility] [place] POCT Glucoseon 09-21-2020 Glucose [Mass/Vol] 446 mg/dL High 70 - 100 mg/dL [facility] [place] [place] Comment on above: Test performed by gl ucose meter. Results may be 10%-15% lower than serum/plasma values. (CLIA ID [id number]) Interpretation and review of laboratory results Abnormal [facility] Test Performed by [facility], [address], [place], [place] [address] [facility] [place] Glucose [Mass/Vol] 440 mg/dL High 70 - 100 mg/dL [facility] [place] Comment on above: Test performed by gl ucose meter. Results may be 10%-15% lower than serum/plasma values. (CLIA ID [id number]) Interpretation and review of laboratory results Abnormal [facility] Test Performed by [facility], [address] [place], [place] [address] [facility] Glucose [Mass/Vol] 138 mg/dL High 70 - 100 mg/dL [facility] [place] Comment on above: Test performed by gl ucose meter. Results may be 10%-15% lower than serum/plasma values. (CLIA ID [id number]) Interpretation and review of laboratory results Abnormal [place] Test Performed by [facility], [address], [place], [place] [address] [place] Basic Metabolic Panelon 11- Anion gap [Moles/Vol] 6 mmol/L [place] Calcium [Mass/Vol] 8.7 mg/dL 8.4 - 10. 4 mg/dL [place] Chloride [Moles/Vol] 101 mmol/L 98 - 10 7 mmol/L [place] CO2 [Moles/Vol] 27 mmol/L 22 - 30 mmol/L [place] Creatinine [Mass/Vol] 0.81 mg/dL 0.52 - 1.25 mg/dL [place] EGFR IF NonAfrican [place] 82.4 mL/min >60 [place] Comment on above: KDIGO guidelines pro vide the following GFR categories: Stage GFR(ml/min/1.73 m2) Terms G1 >=90 Normal or high G2 60-89 Mildly decreased* G3a 45-59 Mildly to moderately decreased G3b 30-44 Moderately to severely decreased G4 15-29 Severely decreased G5 <15 Kidney failure *Relative to young adult level. In the absence of evidence of kidney damage, neither GFR category G1 nor G2 fulfill the criteria for CKD. The CKD-EPI equation is validated in individuals 18 years of age and older. Currently the best equation for estimating glomerular filtration rate (GFR) from serum creatinine in children is the Bedside Sorto equation. It is less accurate in patients with extremes of muscle mass, restriction of dietary protein, ingestion of creatine, extra-renal metabolism of creatinine, or treatment with medications that affect renal tubular creatinine secretion. GFR/1.73 sq M predicted among blacks MDRD (S/P/Bld) [Vol rate/Area] mL/min/{1.73_m2} >60 mL/min [place] Glucose [Mass/Vol] 259 mg/dL High 70 - 100 mg/dL [place] Interpretation and review of laboratory results Abnormal [place] Potassium [Moles/Vol] 4.5 mmol/L 3.5 - 5.1 mmol/L [place] Sodium [Moles/Vol] 134 mmol/L Low 135 - 145 mmol/L [facility] Urea nitrogen [Mass/Vol] 22 mg/dL High 7 - 20 mg/dL [facility] Test Performed by [facility], [address] [place] [facility] POCT Glucoseon 09-20-2020 Glucose [Mass/Vol] 129 mg/dL High 70 - 100 mg/dL [facility], [place] Comment on above: Test performed by gl ucose meter. Results may be 10%-15% lower than serum/plasma values. (CLIA ID [id number]) Interpretation and review of laboratory results Abnormal [facility] Test Performed by [facility], [address] [place] [place], [place] Glucose [Mass/Vol] 192 mg/dL High 70 - 100 mg/dL [facility], [place] Comment on above: Test performed by gl ucose meter. Results may be 10%-15% lower than serum/plasma values. (CLIA ID [id number]) Interpretation and review of laboratory results Abnormal [facility] Test Performed by [facility], [address] [place] [place] [place], [place] Glucose [Mass/Vol] 352 mg/dL High 70 - 100 mg/dL [facility] [place], [place] Comment on above: Test performed by gl ucose meter. Results may be 10%-15% lower than serum/plasma values. (CLIA ID [id number]) Interpretation and review of laboratory results Abnormal [facility] Test Performed by [facility], [address] [place], [place] Glucose [Mass/Vol] 283 mg/dL High 70 - 100 mg/dL [facility] [place], [place] Comment on above: Test performed by gl ucose meter. Results may be 10%-15% lower than serum/plasma values. (CLIA ID [id number]) Interpretation and review of laboratory results Abnormal [facility] Test Performed by [facility], [address] [place] [place] XR ABDOMEN (KUB) (SINGLE AP VIEW)on 09-20-2020 [facility], [facility] Incoming [facility] - 09/20/2020 10:48 AM EST Patient Name: WILL JACINTO ---Diagnostic Radiology--- Exam Date/Time 09/20/2020 08:59:00 EST Exam CR Abdomen AP Ordering Physician DO HILL LISA Accession Number [id number] CPT4 Codes 95070 () Reason For Exam ileus Report EXAMINATION: Abdomen: AP view. COMPARISON: 09/19/2020. REASON FOR STUDY: Ileus, nausea. FINDINGS: Small bowel loops are diffusely dilated. There is a small amount residual solid colonic content. No evidence of bowel thickening identified. No appreciable evidence of free intraperitoneal air. Osseous structures appear intact. CONCLUSIONS: Diffuse small bowel ileus versus partial distal obstruction. Report Dictated on --- Final --- Dictating Physician: MD SCHMIDT B NELSON Signed Date and Time: 09/20/2020 10:47 am Signed by: MD SCHMIDT B NELSON Transcribed Date and Time: 09/20/2020 10:48 [place] Patient Name: WILL ALVARADO ---Diagnostic Radiology--- Exam Date/Time 09/20/2020 08:59:00 EST Exam CR Abdomen AP Ordering Physician DO HILL LISA Accession Number [id number] CPT4 Codes 35330 () Reason For Exam ileus Report EXAMINATION: Abdomen: AP view. COMPARISON: 09/19/2020. REASON FOR STUDY: Ileus, nausea. FINDINGS: Small bowel loops are diffusely dilated. There is a small amount residual solid colonic content. No evidence of bowel thickening identified. No appreciable evidence of free intraperitoneal air. Osseous structures appear intact. CONCLUSIONS: Diffuse small bowel ileus versus partial distal obstruction. Report Dictated on --- Final --- Dictating Physician: MD SCHMIDT B NELSON Signed Date and Time: 09/20/2020 10:47 am Signed by: MD SCHMIDT B NELSON Transcribed Date and Time: 09/20/2020 10:48 [place] CBC Auto Differentialon 09-08 Erythrocyte distribution width (RBC) [Ratio] 15.3 % High 11.5 - 14.5 % [place] Hematocrit (Bld) [Volume fraction] 32.5 % Low 35 - 47 % [place] Hemoglobin (Bld) [Mass/Vol] 10.6 g/dL Low 11.7 - 16 g/dL [place] Interpretation and review of laboratory results Abnormal [place] MCH (RBC) [Entitic mass] 29.0 pg 26 - 34 pg [place] MCHC (RBC) [Mass/Vol] 32.7 % 32 - 36 % [place] MCV (RBC) [Entitic vol] 88.7 fL 79 - 98 fL [place], [place] Platelet mean volume (Bld) [Entitic vol] 7.3 fL Low 7.4 - 10.4 fL [place] Platelets (Bld) [#/Vol] 519 10*3/uL High 140 - 440 10*3/uL [place] RBC (Bld) [#/Vol] 3.67 10*6/uL Low 3.8 - 5.2 10*6/uL [place] WBC (Bld) [#/Vol] 8.5 10*3/uL 3.6 - 10.7 10*3/uL [place] Test Performed by [facility], [address] [place], [place] [address] [place] Comprehensive Metabolic Pane gigi 09-19-2020 Albumin [Mass/Vol] 3.6 g/dL 3.5 - 5 g/dL [place] ALP [Catalytic activity/Vol] 128 U/L High 38 - 126 U/L [place] ALT [Catalytic activity/Vol] 125 U/L High 0 - 34 U/L [place] Comment on above: The ALT test is perf ormed by an updated assay method. Please note that the reference intervals have been changed and are now sex specific. Anion gap [Moles/Vol] 7 mmol/L [place], [place] AST [Catalytic activity/Vol] 68 U/L High 15 - 46 U/L [place] Bilirubin Ql (U) 0.6 mg/dL 0.2 - 1.3 mg/dL [place] Calcium [Mass/Vol] 8.9 mg/dL 8.4 - 10. 4 mg/dL [place] Chloride [Moles/Vol] 99 mmol/L 98 - 10 7 mmol/L [place] CO2 [Moles/Vol] 25 mmol/L 22 - 30 mmol/L [place] Creatinine [Mass/Vol] 0.88 mg/dL 0.52 - 1.25 mg/dL [place] EGFR IF NonAfrican [place] 74.5 mL/min >60 [place] Comment on above: KDIGO guidelines pro vide the following GFR categories: Stage GFR(ml/min/1.73 m2) Terms G1 >=90 Normal or high G2 60-89 Mildly decreased* G3a 45-59 Mildly to moderately decreased G3b 30-44 Moderately to severely decreased G4 15-29 Severely decreased G5 <15 Kidney failure *Relative to young adult level. In the absence of evidence of kidney damage, neither GFR category G1 nor G2 fulfill the criteria for CKD. The CKD-EPI equation is validated in individuals 18 years of age and older. Currently the best equation for estimating glomerular filtration rate (GFR) from serum creatinine in children is the Bedside Sorto equation. It is less accurate in patients with extremes of muscle mass, restriction of dietary protein, ingestion of creatine, extra-renal metabolism of creatinine, or treatment with medications that affect renal tubular creatinine secretion. GFR/1.73 sq M predicted among blacks MDRD (S/P/Bld) [Vol rate/Area] 86.4 mL/min/{1.73_m2} >60 [place] Glucose [Mass/Vol] 395 mg/dL High 70 - 100 mg/dL [place] Interpretation and review of laboratory results Abnormal [place] Potassium [Moles/Vol] 5.8 mmol/L High 3.5 - 5.1 mmol/L [place] Protein [Mass/Vol] 7.2 g/dL 6.3 - 8.2 g/dL [facility] Sodium [Moles/Vol] 131 mmol/L Low 135 - 145 mmol/L [facility] Urea nitrogen [Mass/Vol] 29 mg/dL High 7 - 20 mg/dL [facility] Test Performed by [facility], [address], [place] [address] [facility] Manual Differentialon 2019 Absolute Baso # 0.0 10*3/uL 0 - 0.2 10*3/uL [facility] Absolute Eos # 0.1 10*3/uL 0 - 0.5 10*3/uL [facility] [place] Absolute Lymph # 0.9 10*3/uL Low 1.1 - 4.5 10*3/uL [facility] [place] Absolute [place] # 0.6 10*3/uL 0.2 - 1.1 10*3/uL [facility] [place] Absolute Neut # 6.5 10*3/uL 2.2 - 8.2 10*3/uL [facility] [place] Anisocytosis Ql (Bld) Slight [facility] Bands 1 % 0 - 3 % [facility] [place] Basophils 0 % 0 - 2 % [facility] [place] Eosinophils 1 % 1 - 6 % [facility] [place] Hypochromia Slight [facility] [place] Interpretation and review of laboratory results Abnormal [facility] [place] Lymphocytes 11 % Low 20 - 40 % [facility] [place] Metamyelocytes 4 % Abnormal <1 [facility] Monocytes 7 % 2 - 10 % [facility] [place] Polychromasia Slight [facility] [place] RBC morphology finding Nom (Bld) ABNORMAL [facility] [place] Seg Neutrophils 76 % 40 - 80 % [facility] TOTAL CELLS COUNTED 100 [facility] Test Performed by [facility], [address] [place], [place] [address] [facility] Otheron 09-19-2020 Interpretation and review of laboratory results Abnormal [facility] Test Performed by [facility], [address], [place] [address] [facility] POCT Glucoseon 09-19-2020 Glucose [Mass/Vol] 286 mg/dL High 70 - 100 mg/dL [facility] Comment on above: Test performed by gl ucose meter. Results may be 10%-15% lower than serum/plasma values. (CLIA ID [id number]) Interpretation and review of laboratory results Abnormal [facility] Test Performed by [facility], [address], [place], [place] [address] [facility] Glucose [Mass/Vol] 395 mg/dL High 70 - 100 mg/dL [facility] Comment on above: Test performed by gl ucose meter. Results may be 10%-15% lower than serum/plasma values. (CLIA ID [id number]) Interpretation and review of laboratory results Abnormal [facility] Test Performed by [facility], [address], [place], [place] [address] [facility] Glucose [Mass/Vol] 406 mg/dL High 70 - 100 mg/dL [place] Comment on above: Test performed by gl ucose meter. Results may be 10%-15% lower than serum/plasma values. (CLIA ID [id number]) Glucose [Mass/Vol] 412 mg/dL High 70 - 100 mg/dL [place], [employer] Comment on above: Test performed by gl ucose meter. Results may be 10%-15% lower than serum/plasma values. (CLIA ID [id number]) XR ABDOMEN (KUB) (SINGLE AP VIEW)on 09-19-2020 [facility] - 09/19/2020 1:20 PM EST Patient Name: WILL JACINTO ---Diagnostic Radiology--- Exam Date/Time 09/19/2020 12:13:39 EST Exam CR Abdomen AP Ordering Physician MD JOANN, [place] Garcia Accession Number [id number] CPT4 Codes 86245 () Reason For Exam ileus fu Report Examination: Abdomen 1 view, four images Indication: ileus fu Comparison: Previous day Findings: The patient is a large body habitus. This does slightly limit assessment. Multiple dilated air-filled loops of bowel are noted, which appear colonic. There are also dilated loops of small bowel. There is also some stool in the distribution of the colon. Small osteophytes of the spine are present at multiple levels. Mild to moderate degenerative changes of the hips are also noted. Impression: Dilated loops of large and small bowel, possibly secondary to ileus. Obstruction not entirely excluded. Follow-up as clinically directed. Report Dictated on --- Final --- Dictating Physician: MD GUY KRIKOR Signed Date and Time: 09/19/2020 1:19 pm Signed by: MD GUY KRIKOR Transcribed Date and Time: 09/19/2020 1:20 [place] Patient Name: WILL ALVARADO ---Diagnostic Radiology--- Exam Date/Time 09/19/2020 12:13:39 EST Exam CR Abdomen AP Ordering Physician MD DAVID RICHARD H Accession Number [id number] CPT4 Codes 03787 () Reason For Exam ileus fu Report Examination: Abdomen 1 view, four images Indication: ileus fu Comparison: Previous day Findings: The patient is a large body habitus. This does slightly limit assessment. Multiple dilated air-filled loops of bowel are noted, which appear colonic. There are also dilated loops of small bowel. There is also some stool in the distribution of the colon. Small osteophytes of the spine are present at multiple levels. Mild to moderate degenerative changes of the hips are also noted. Impression: Dilated loops of large and small bowel, possibly secondary to ileus. Obstruction not entirely excluded. Follow-up as clinically directed. Report Dictated on --- Final --- Dictating Physician: MD GUY KRIKOR Signed Date and Time: 09/19/2020 1:19 pm Signed by: MD GUY KRIKOR Transcribed Date and Time: 09/19/2020 1:20 [place] Basic Metabolic Panelon 09-08 Anion gap [Moles/Vol] 10 mmol/L [place] Calcium [Mass/Vol] 9.0 mg/dL 8.4 - 10. 4 mg/dL [place] Chloride [Moles/Vol] 99 mmol/L 98 - 10 7 mmol/L [place] CO2 [Moles/Vol] 25 mmol/L 22 - 30 mmol/L [place] Creatinine [Mass/Vol] 0.99 mg/dL 0.52 - 1.25 mg/dL [place] EGFR IF NonAfrican [place] 64.6 mL/min >60 [place] Comment on above: KDIGO guidelines pro vide the following GFR categories: Stage GFR(ml/min/1.73 m2) Terms G1 >=90 Normal or high G2 60-89 Mildly decreased* G3a 45-59 Mildly to moderately decreased G3b 30-44 Moderately to severely decreased G4 15-29 Severely decreased G5 <15 Kidney failure *Relative to young adult level. In the absence of evidence of kidney damage, neither GFR category G1 nor G2 fulfill the criteria for CKD. The CKD-EPI equation is validated in individuals 18 years of age and older. Currently the best equation for estimating glomerular filtration rate (GFR) from serum creatinine in children is the Bedside Sorto equation. It is less accurate in patients with extremes of muscle mass, restriction of dietary protein, ingestion of creatine, extra-renal metabolism of creatinine, or treatment with medications that affect renal tubular creatinine secretion. GFR/1.73 sq M predicted among blacks MDRD (S/P/Bld) [Vol rate/Area] 74.9 mL/min/{1.73_m2} >60 [place] Glucose [Mass/Vol] 310 mg/dL High 70 - 100 mg/dL [place] Interpretation and review of laboratory results Abnormal [place] Potassium [Moles/Vol] 5.3 mmol/L High 3.5 - 5.1 mmol/L [place] Sodium [Moles/Vol] 134 mmol/L Low 135 - 145 mmol/L [place] Urea nitrogen [Mass/Vol] 35 mg/dL High 7 - 20 mg/dL [place] Test Performed by [facility], [address], [place], [place] [address] [place] Comprehensive Metabolic Pane l w/ Reflex to MGon 09-18-2020 Albumin [Mass/Vol] 3.9 g/dL 3.5 - 5 g/dL [place] ALP [Catalytic activity/Vol] 133 U/L High 38 - 126 U/L [place] ALT [Catalytic activity/Vol] 104 U/L High 0 - 34 U/L [place] Comment on above: The ALT test is perf ormed by an updated assay method. Please note that the reference intervals have been changed and are now sex specific. Anion gap [Moles/Vol] 8 mmol/L [place] AST [Catalytic activity/Vol] 74 U/L High 15 - 46 U/L [place] Bilirubin Ql (U) 0.8 mg/dL 0.2 - 1.3 mg/dL [place] Calcium [Mass/Vol] 9.2 mg/dL 8.4 - 10. 4 mg/dL [place] Chloride [Moles/Vol] 104 mmol/L 98 - 10 7 mmol/L [place] CO2 [Moles/Vol] 26 mmol/L 22 - 30 mmol/L [place] Creatinine [Mass/Vol] 0.97 mg/dL 0.52 - 1.25 mg/dL [place] EGFR IF NonAfrican [place] 66.3 mL/min >60 [place] Comment on above: KDIGO guidelines pro vide the following GFR categories: Stage GFR(ml/min/1.73 m2) Terms G1 >=90 Normal or high G2 60-89 Mildly decreased* G3a 45-59 Mildly to moderately decreased G3b 30-44 Moderately to severely decreased G4 15-29 Severely decreased G5 <15 Kidney failure *Relative to young adult level. In the absence of evidence of kidney damage, neither GFR category G1 nor G2 fulfill the criteria for CKD. The CKD-EPI equation is validated in individuals 18 years of age and older. Currently the best equation for estimating glomerular filtration rate (GFR) from serum creatinine in children is the Bedside Sorto equation. It is less accurate in patients with extremes of muscle mass, restriction of dietary protein, ingestion of creatine, extra-renal metabolism of creatinine, or treatment with medications that affect renal tubular creatinine secretion. GFR/1.73 sq M predicted among blacks MDRD (S/P/Bld) [Vol rate/Area] 76.8 mL/min/{1.73_m2} >60 [place] Glucose [Mass/Vol] 175 mg/dL High 70 - 100 mg/dL [place] Interpretation and review of laboratory results Abnormal [place] Potassium [Moles/Vol] 5.5 mmol/L High 3.5 - 5.1 mmol/L [place] Protein [Mass/Vol] 7.8 g/dL 6.3 - 8.2 g/dL [place] Sodium [Moles/Vol] 138 mmol/L 135 - 145 mmol/L [place] Urea nitrogen [Mass/Vol] 40 mg/dL High 7 - 20 mg/dL [place] Test Performed by [facility], [address] [place] [address] [place], [place] [id number] [place] [address] EKG 12 Lead - Chest Painon 1 11-18-[address] 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 : 1965 Requested By: ART ZENG Order Number: [id number] Reading MD: Justin Ramirez Measurements Intervals [place] Rate: 82 P: 37 NM: 172 QRS: -39 QRSD: 110 T: 26 QT: 376 QTc: 439 Interpretive Statements SINUS RHYTHM NONSPECIFIC IVCD WITH LAD LEFT VENTRICULAR HYPERTROPHY Compared to ECG 06/24/2018 21:26:56 Intraventricular conduction delay now present Electronically Signed On 09-18-2020 16:46:18 EST by Justin Ramirez [facility] Test Date: 2020-09-17 Pat Name: Will Jacinto Department: 01 Room: 268 Gender: F 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 Results may be 10%-15% lower than serum/plasma values. (CLIA ID [id number]) Interpretation and review of laboratory results Abnormal [place] Test Performed by [facility], [address] [place] [address] [place], [employer] Glucose [Mass/Vol] 349 mg/dL High 70 - 100 mg/dL [place] Comment on above: Test performed by gl ucose meter. Results may be 10%-15% lower than serum/plasma values. (CLIA ID [id number]) Interpretation and review of laboratory results Abnormal [place] Test Performed by [facility], [address], [place] [address] [place], [employer] Glucose [Mass/Vol] 341 mg/dL High 70 - 100 mg/dL [place] Comment on above: Test performed by gl ucose meter. Results may be 10%-15% lower than serum/plasma values. (CLIA ID [id number]) Interpretation and review of laboratory results Abnormal [place] Test Performed by [facility], [address] [place] [address] [place] Glucose [Mass/Vol] 312 mg/dL High 70 - 100 mg/dL [place], [employer] Comment on above: Test performed by gl ucose meter. Results may be 10%-15% lower than serum/plasma values. (CLIA ID [id number]) Interpretation and review of laboratory results Abnormal [facility] [place], [place] Test Performed by [facility], [address] [place] [address] [place] Glucose [Mass/Vol] 235 mg/dL High 70 - 100 mg/dL [place] Comment on above: Test performed by gl ucose meter. Results may be 10%-15% lower than serum/plasma values. (CLIA ID [id number]) Interpretation and review of laboratory results Abnormal [place] Test Performed by [facility], [address], [place], [place] [address] [place] XR ABDOMEN (KUB) (SINGLE AP VIEW)on 09-18-2020 [facility] Incoming Radiology Results From [facility] - 09/18/2020 10:26 AM EST Patient Name: WILL JACINTO ---Diagnostic Radiology--- Exam Date/Time 09/18/2020 09:25:00 EST Exam CR Abdomen AP Ordering Physician DO HILL LISA Accession Number [id number] CPT4 Codes 68256 () Reason For Exam ileus Report Clinical Information: Abdominal pain and nausea. Ileus. Abdomen, KUB: A multiple AP supine radiographs of the abdomen demonstrate a distended gas filled stomach. There is a nonspecific bowel gas pattern. Gas is seen within multiple nondilated and mildly dilated loops small bowel. Gas and fecal residue are seen in normal caliber large bowel. There is no obvious free intraperitoneal gas on limited evaluation. No suspect calcification, organomegaly or soft tissue mass is seen. There is excreted urinary contrast within the urinary bladder. Impression: 1. Gaseous distention of the stomach which is nonspecific and could be related to gastroparesis, now with obstruction, aerophagia. 2. Nonspecific bowel gas pattern without evidence of obstruction 3. No other significant radiographic abnormality. Report Dictated on --- Final --- Dictating Physician: MD BARRAGAN HARLAN Signed Date and Time: 09/18/2020 9:48 am Signed by: MD BARRAGAN HARLAN Transcribed Date and Time: 09/18/2020 10:25 [place] Patient Name: WILL ALVARADO ---Diagnostic Radiology--- Exam Date/Time 09/18/2020 09:25:00 EST Exam CR Abdomen AP Ordering Physician DO HILL LISA Accession Number [id number] CPT4 Codes 31894 () Reason For Exam ileus Report Clinical Information: Abdominal pain and nausea. Ileus. Abdomen, KUB: A multiple AP supine radiographs of the abdomen demonstrate a distended gas filled stomach. There is a nonspecific bowel gas pattern. Gas is seen within multiple nondilated and mildly dilated loops small bowel. Gas and fecal residue are seen in normal caliber large bowel. There is no obvious free intraperitoneal gas on limited evaluation. No suspect calcification, organomegaly or soft tissue mass is seen. There is excreted urinary contrast within the urinary bladder. Impression: 1. Gaseous distention of the stomach which is nonspecific and could be related to gastroparesis, now with obstruction, aerophagia. 2. Nonspecific bowel gas pattern without evidence of obstruction 3. No other significant radiographic abnormality. Report Dictated on --- Final --- Dictating Physician: MD BARRAGAN HARLAN Signed Date and Time: 09/18/2020 9:48 am Signed by: MD BARRAGAN HARLAN Transcribed Date and Time: 09/18/2020 10:25 [place] Abdomen Pelvis W Contrast on 09-17-2020 [facility] - 09/17/2020 10:32 PM EST Patient Name: WILL JACINTO ---CT--- Exam Date/Time 09/17/2020 22:15:[address] Abdomen/Pelvis w/ IV Contrast (IV Onl Ordering Physician ART OWEN Accession Number [id number] CPT4 Codes 47423 (CT Abdomen/Pelvis w/ IV Contrast (IV Onl), Q9967 (CT ISOVUE 370MG/ML&[id number]&ML& 1) Reason For Exam abd pain/tenderness Report CT ABDOMEN AND PELVIS CLINICAL INDICATION: abd pain/tenderness TECHNIQUE: CT scan of the abdomen and pelvis with IV contrast. Multiplanar reformations. COMPARISON: 06/25/2018 FINDINGS: Right middle lobe lung nodule measures 3.2 mm. This area was not included on the prior scan. Lung bases otherwise clear. No free air seen. Diffuse hepatic steatosis. Normal gallbladder and biliary tree. Spleen shows no significant abnormality. Adrenal glands show no significant abnormality. Kidneys show no significant abnormality. Pancreas shows no significant abnormality. Abdominal aorta is nonaneurysmal. No bowel obstruction. Appendix is not seen. Uterus is enlarged, likely related to fibroids, but new since the previous study. No ureteral calculus seen on either side. Moderate distention of the stomach with fluid and gas. Mildly prominent small bowel loops also filled with gas, potentially an ileus. IMPRESSION: 1. Enlarged uterus likely relates to fibroids, new since the previous study. 2. Diffuse hepatic steatosis. 3. Right middle lobe nodule. No suspicious morphology. Fleischner Society guidelines indicate that for solitary or multiple nodules less than 6 mm in average cross-sectional size in a low risk patient need no specific follow-up. However, a 12 month follow-up can be considered if nodule morphology is suspicious or nodule is in an upper lobe. In a high risk patient with solitary or multiple nodules less than 6 mm in average cross-sectional size, recommendation is for optional CT follow-up in 12 months. 4. Moderate distention of the stomach with fluid and gas with gas present throughout numerous mildly prominent small bowel loops, consider possible ileus. Report Dictated on --- Final --- Dictating Physician: MD UGALDE JOHN R Signed Date and Time: 09/17/2020 10:30 pm Signed by: MD UGALDE JOHN R Transcribed Date and Time: 09/17/2020 10:31 [place] Patient Name: WILL ALVARADO ---CT--- Exam Date/Time 09/17/2020 22:15:[address] Abdomen/Pelvis w/ IV Contrast (IV Onl Ordering Physician ART OWEN Accession Number [id number] CPT4 Codes 51801 (CT Abdomen/Pelvis w/ IV Contrast (IV Onl), Q9967 (CT ISOVUE 370MG/ML&[id number]&ML& 1) Reason For Exam abd pain/tenderness Report CT ABDOMEN AND PELVIS CLINICAL INDICATION: abd pain/tenderness TECHNIQUE: CT scan of the abdomen and pelvis with IV contrast. Multiplanar reformations. COMPARISON: 06/25/2018 FINDINGS: Right middle lobe lung nodule measures 3.2 mm. This area was not included on the prior scan. Lung bases otherwise clear. No free air seen. Diffuse hepatic steatosis. Normal gallbladder and biliary tree. Spleen shows no significant abnormality. Adrenal glands show no significant abnormality. Kidneys show no significant abnormality. Pancreas shows no significant abnormality. Abdominal aorta is nonaneurysmal. No bowel obstruction. Appendix is not seen. Uterus is enlarged, likely related to fibroids, but new since the previous study. No ureteral calculus seen on either side. Moderate distention of the stomach with fluid and gas. Mildly prominent small bowel loops also filled with gas, potentially an ileus. IMPRESSION: 1. Enlarged uterus likely relates to fibroids, new since the previous study. 2. Diffuse hepatic steatosis. 3. Right middle lobe nodule. No suspicious morphology. Fleischner Society guidelines indicate that for solitary or multiple nodules less than 6 mm in average cross-sectional size in a low risk patient need no specific follow-up. However, a 12 month follow-up can be considered if nodule morphology is suspicious or nodule is in an upper lobe. In a high risk patient with solitary or multiple nodules less than 6 mm in average cross-sectional size, recommendation is for optional CT follow-up in 12 months. 4. Moderate distention of the stomach with fluid and gas with gas present throughout numerous mildly prominent small bowel loops, consider possible ileus. Report Dictated on --- Final --- Dictating Physician: MD UGALDE JOHN R Signed Date and Time: 09/17/2020 10:30 pm Signed by: MD UGALDE JOHN R Transcribed Date and Time: 09/17/2020 10:31 [place] Comprehensive Metabolic Pane gigi 09-17-2020 Albumin [Mass/Vol] 4.2 g/dL 3.5 - 5 g/dL [place] ALP [Catalytic activity/Vol] 153 U/L High 38 - 126 U/L [place] ALT [Catalytic activity/Vol] 104 U/L High 0 - 34 U/L [place] Comment on above: The ALT test is perf ormed by an updated assay method. Please note that the reference intervals have been changed and are now sex specific. Anion gap [Moles/Vol] 6 mmol/L [place] AST [Catalytic activity/Vol] 69 U/L High 15 - 46 U/L [place] Bilirubin Ql (U) 0.5 mg/dL 0.2 - 1.3 mg/dL [place] Calcium [Mass/Vol] 10.3 mg/dL 8.4 - 10. 4 mg/dL [place] Chloride [Moles/Vol] 101 mmol/L 98 - 10 7 mmol/L [place] CO2 [Moles/Vol] 29 mmol/L 22 - 30 mmol/L [place] Creatinine [Mass/Vol] 1.09 mg/dL 0.52 - 1.25 mg/dL [place] EGFR IF NonAfrican [place] 57.5 mL/min Abnormal >60 [place] Comment on above: KDIGO guidelines pro vide the following GFR categories: Stage GFR(ml/min/1.73 m2) Terms G1 >=90 Normal or high G2 60-89 Mildly decreased* G3a 45-59 Mildly to moderately decreased G3b 30-44 Moderately to severely decreased G4 15-29 Severely decreased G5 <15 Kidney failure *Relative to young adult level. In the absence of evidence of kidney damage, neither GFR category G1 nor G2 fulfill the criteria for CKD. The CKD-EPI equation is validated in individuals 18 years of age and older. Currently the best equation for estimating glomerular filtration rate (GFR) from serum creatinine in children is the Bedside Sorto equation. It is less accurate in patients with extremes of muscle mass, restriction of dietary protein, ingestion of creatine, extra-renal metabolism of creatinine, or treatment with medications that affect renal tubular creatinine secretion. GFR/1.73 sq M predicted among blacks MDRD (S/P/Bld) [Vol rate/Area] 66.7 mL/min/{1.73_m2} >60 [place] Glucose [Mass/Vol] 122 mg/dL High 70 - 100 mg/dL [place] Interpretation and review of laboratory results Abnormal [place] Potassium [Moles/Vol] 5.7 mmol/L High 3.5 - 5.1 mmol/L [place] Protein [Mass/Vol] 7.9 g/dL 6.3 - 8.2 g/dL [place] Sodium [Moles/Vol] 137 mmol/L 135 - 145 mmol/L [place] Urea nitrogen [Mass/Vol] 48 mg/dL High 7 - 20 mg/dL [place] Hemogram (CBC) w/Auto Diffon 09-17-2020 Erythrocyte distribution width (RBC) [Ratio] 14.9 % High 11.5 - 14.5 % [place] Hematocrit (Bld) [Volume fraction] 33.9 % Low 35 - 47 % [place] Hemoglobin (Bld) [Mass/Vol] 11.4 g/dL Low 11.7 - 16 g/dL [place] Interpretation and review of laboratory results Abnormal [place] MCH (RBC) [Entitic mass] 29.6 pg 26 - 34 pg [place] MCHC (RBC) [Mass/Vol] 33.7 % 32 - 36 % [place] MCV (RBC) [Entitic vol] 87.8 fL 79 - 98 fL [place], [place] Platelet mean volume (Bld) [Entitic vol] 7.5 fL 7.4 - 10.4 fL [place] Platelets (Bld) [#/Vol] 544 10*3/uL High 140 - 440 10*3/uL [place] RBC (Bld) [#/Vol] 3.87 10*6/uL 3.8 - 5.2 10*6/uL [place] WBC (Bld) [#/Vol] 11.0 10*3/uL High 3.6 - 10.7 10*3/uL [place] Test Performed by [facility], [address], [place], [place] [address] [place] Lipaseon 09-17-2020 Lipase [Catalytic activity/Vol] 39 U/L 23 - 300 U/L [place] Manual Differentialon 2019 Absolute Baso # 0.0 10*3/uL 0 - 0.2 10*3/uL [place] Absolute Eos # 0.0 10*3/uL 0 - 0.5 10*3/uL [facility] [place] Absolute Lymph # 0.8 10*3/uL Low 1.1 - 4.5 10*3/uL [facility] [place] Absolute [place] # 0.8 10*3/uL 0.2 - 1.1 10*3/uL [facility] Absolute Neut # 9.4 10*3/uL High 2.2 - 8.2 10*3/uL [facility] [place] Bands 1 % 0 - 3 % [facility] [place] Basophils 0 % 0 - 2 % [facility] [place] Eosinophils 0 % Low 1 - 6 % [facility] Interpretation and review of laboratory results Abnormal [facility] Lymphocytes 7 % Low 20 - 40 % [facility] Monocytes 7 % 2 - 10 % [facility] Myelocytes 1 % Abnormal <1 [facility] Polychromasia Slight [facility] [place] RBC morphology finding Nom (Bld) ABNORMAL [facility] Seg Neutrophils 84 % High 40 - 80 % [facility] TOTAL CELLS COUNTED 100 [facility] [place] Test Performed by [facility], [address], [place] Otheron 09-17-2020 Test Performed by [facility], [address] POCT Glucoseon 09-17-2020 Glucose [Mass/Vol] 124 mg/dL High 70 - 100 mg/dL [place] Comment on above: Test performed by ucose meter. Results may be 10%-15% lower than serum/plasma values. (CLIA ID [id number]) Interpretation and review of laboratory results Abnormal [facility], [place] Test Performed by [facility], [address], [place] Troponin x1on 09-17-2020 Troponin I.cardiac [Mass/Vol] ng/mL 0 - 0.034 ng/mL [facility], [place] Comment on above: . Test Performed by [facility], [address], [address] Urinalysison 09-17-2020 Appearance (U) Clear Clear NA [place] Comment on above: . Bilirubin Urine Negative Negative mg/dL [place] Comment on above: . Color (U) Yellow Lt. Yellow NA [place] Comment on above: . Glucose, Ur Normal Normal (<70) mg/dL [place] Comment on above: . Interpretation and review of laboratory results Abnormal [place] Ketones Ql (U) Trace Abnormal Negative mg/dL [place] Comment on above: . LEUKOCYTES, UA 25 Abnormal Negative Kat/uL [place] Comment on above: . Mucous Threads Few Negative /[LPF] [place] Comment on above: . Nitrite, Urine Negative Negative NA [place] Comment on above: . Occult Blood,Urine 1.0 mg/dL Abnormal Negative [place] Comment on above: . pH (U) 5.5 [pH] [place] Comment on above: . Protein (U) [Mass/Vol] 10 mg/dL Abnormal Negative [address] [place], [place] Comment on above: . RBC (U) [#/Vol] 51-100 Abnormal 0 - 2 /[HPF] [place] Comment on above: . Specific [place], Urine 1.021 M [place], [place] Comment on above: . Squam Epithel, UA 0-2 3 - 5 /[HPF] [place] Comment on above: . Urobilinogen, Urine Normal Normal (0-1) mg/dL [place] Comment on above: . WBC, UA 0-2 0 - 5 /[HPF] [place] Comment on above: . Test Performed by [facility] [employer] [facility], [address], [address] Basic Metabolic Panelon 12-10 Calcium [Mass/Vol] 9.9 mg/dL Normal 8.4-10.4 [facility] Comment on above: Performed By: #### B GLU #### [facility] [address] [place] [address] Glucose [Mass/Vol] 404 mg/dL High 70-100 [facility] Comment on above: Performed By: #### B GLU #### [facility] [address] [place], [place] Anion gap [Moles/Vol] 13 Normal [facility] Comment on above: Performed By: #### B GLU #### [facility] [address] [place], [place] CO2 [Moles/Vol] 28 mmol/L Normal 22-30 [facility] Comment on above: Performed By: #### B GLU #### [place] [address] [address] [place], [place] Creatinine [Mass/Vol] 0.95 mg/dL Normal 0.52-1.25 [facility] Comment on above: Performed By: #### B GLU #### [place] [address] [address] [place], [place] GFR/1.73 sq M predicted among blacks MDRD (S/P/Bld) [Vol rate/Area] mL/min/{1.73_m2} Normal >60 [facility] Comment on above: Performed By: #### B GLU #### [place] [address] [address] [place], [place] GFR/1.73 sq M predicted among non-blacks MDRD (S/P/Bld) [Vol rate/Area] mL/min/{1.73_m2} Normal >60 [facility] Comment on above: Result Comment: Sour ce- MDRD equation with creatinine calibration to IDMS(NKDEP) eGFR not recommended for drug dose adjustment Performed By: #### B GLU #### [facility] [address] [place], [place] Urea nitrogen [Mass/Vol] 23 mg/dL High 7-20 [facility] Comment on above: Performed By: #### B GLU #### [place] [address] [address] [place], [place] Chloride [Moles/Vol] 94 mmol/L Low 98-107 [facility] Comment on above: Performed By: #### B GLU #### [address] [place], [place] Potassium [Moles/Vol] 4.8 mmol/L Normal 3.5-5.1 [facility] Comment on above: Performed By: #### B GLU #### [place] [address] [address] [place], [place] Sodium [Moles/Vol] 135 mmol/L Normal 135-145 [facility] Comment on above: Performed By: #### B GLU #### [facility] [address] [place], [place] Basic Metabolic Panel w/ Ref kaye to MGon 01-02-2020 Anion gap [Moles/Vol] 13 mmol/L [place] Calcium [Mass/Vol] 9.9 mg/dL 8.4 - 10. 4 mg/dL [place] Chloride [Moles/Vol] 94 mmol/L Low 98 - 10 7 mmol/L [place] CO2 [Moles/Vol] 28 mmol/L 22 - 30 mmol/L [place] Creatinine [Mass/Vol] 0.95 mg/dL 0.52 - 1.25 mg/dL [place] EGFR IF NonAfrican [place] >60.0 >60 mL/min [place] Comment on above: Source- MDRD equatio n with creatinine calibration to IDMS(NKDEP) eGFR not recommended for drug dose adjustment GFR/1.73 sq M predicted among blacks MDRD (S/P/Bld) [Vol rate/Area] mL/min/{1.73_m2} >60 mL/min [place] Glucose [Mass/Vol] 404 mg/dL High 70 - 100 mg/dL [place] Interpretation and review of laboratory results Abnormal [place] Potassium [Moles/Vol] 4.8 mmol/L 3.5 - 5.1 mmol/L [place] Sodium [Moles/Vol] 135 mmol/L 135 - 145 mmol/L [place] Urea nitrogen [Mass/Vol] 23 mg/dL High 7 - 20 mg/dL [place] Test Performed by [facility], [address] [place] [id number] [place] Hemoglobin AND Hematocriton 01-02-2020 Hematocrit (Bld) [Volume fraction] 40.5 % Normal 35.0-47.0 [facility] Comment on above: Performed By: #### B GLU #### [facility] [address] [place] [address] Hemoglobin (Bld) [Mass/Vol] 13.5 g/dL Normal 11.7-16.0 [facility] Comment on above: Performed By: #### B GLU #### [facility] [address] [place] [address] Hemoglobin and Hematocrit, B loodon 01-02-2020 Hematocrit (Bld) [Volume fraction] 40.5 % 35 - 47 % [place] Hemoglobin (Bld) [Mass/Vol] 13.5 g/dL 11.7 - 16 g/dL [place] Test Performed by [facility], [address] [place] [id number] [place] [address] Add On Lab Teston 06-27-2019 Sodium [Moles/Vol] Accepted [place] Comment on above: Specimen available & acceptable for analysis. Test Performed by [facility], [address] C-Reactive Proteinon 019 CRP [Mass/Vol] 45.5 mg/L High 0 - 6 mg/L [place] Comment on above: . Interpretation and review of laboratory results Abnormal [place] Test Performed by [facility], [address], [address] Sedimentation Rateon 019 Interpretation and review of laboratory results Abnormal [place] Sed Rate 130 mm/h High 0 - 20 mm/h [place] Test Performed by [facility], [address], [address] Comprehensive Metabolic Pane gigi 06-26-2019 Albumin [Mass/Vol] 3.6 g/dL 3.5 - 5 g/dL [place] ALP [Catalytic activity/Vol] 165 U/L High 38 - 126 U/L [place] ALT [Catalytic activity/Vol] 37 U/L 13 - 69 U/L [place] Anion gap [Moles/Vol] 9 mmol/L [place] AST [Catalytic activity/Vol] 21 U/L 15 - 46 U/L [place] Bilirubin Ql (U) 0.5 mg/dL 0.2 - 1.3 mg/dL [place] Calcium [Mass/Vol] 8.8 mg/dL 8.4 - 10. 4 mg/dL [place] Chloride [Moles/Vol] 102 mmol/L 98 - 10 7 mmol/L [place] CO2 [Moles/Vol] 26 mmol/L 22 - 30 mmol/L [place] Creatinine [Mass/Vol] 1.06 mg/dL 0.52 - 1.25 mg/dL [place] EGFR IF NonAfrican [place] 54.3 mL/min >60 [place] Comment on above: Source- MDRD equatio n with creatinine calibration to IDMS(NKDEP) eGFR not recommended for drug dose adjustment GFR/1.73 sq M predicted among blacks MDRD (S/P/Bld) [Vol rate/Area] mL/min/{1.73_m2} >60 mL/min [place] Glucose [Mass/Vol] 156 mg/dL High 70 - 100 mg/dL [place] Interpretation and review of laboratory results Abnormal [place] Potassium [Moles/Vol] 4.5 mmol/L 3.5 - 5.1 mmol/L [place] Protein [Mass/Vol] 6.9 g/dL 6.3 - 8.2 g/dL [place] Sodium [Moles/Vol] 137 mmol/L 135 - 145 mmol/L [place] Urea nitrogen [Mass/Vol] 28 mg/dL High 7 - 20 mg/dL [place] Test Performed by [facility], [address], [place], [place] [id number] [place] [address] Hemogram (CBC) w/Auto Diffon 06-26-2019 Absolute Baso # 0.1 10*3/uL 0 - 0.2 10*3/uL [place] Absolute Neut # 5.3 10*3/uL 1.8 - 7 10*3/uL [place] Basophils/100 WBC (Bld) 0.7 % 0 - 2 % [place], [place] Eosinophils (Bld) [#/Vol] 0.2 10*3/uL 0 - 0.5 10*3/uL [place] Eosinophils/100 WBC (Bld) 2.0 % 1 - 6 % [place] Erythrocyte distribution width (RBC) [Ratio] 21.5 % High 11.5 - 14.5 % [place] Granulocytes/100 WBC (Bld) 65.6 % 40 - 80 % [place] Hematocrit (Bld) [Volume fraction] 22.8 % Low 35 - 47 % [place] Hemoglobin (Bld) [Mass/Vol] 7.3 g/dL Low 11.7 - 16 g/dL [place] Interpretation and review of laboratory results Abnormal [place] Lymphocytes (Bld) [#/Vol] 1.8 10*3/uL 1 - 4.3 10*3/uL [place] Lymphocytes/100 WBC (Bld) 21.6 % 20 - 40 % [place] MCH (RBC) [Entitic mass] 23.8 pg Low 26 - 34 pg [place] MCHC (RBC) [Mass/Vol] 32.0 % 32 - 36 % [place] MCV (RBC) [Entitic vol] 74.3 fL Low 79 - 98 fL [place], [place] Monocytes (Bld) [#/Vol] 0.8 10*3/uL 0 - 0.8 10*3/uL [place] Monocytes/100 WBC (Bld) 10.1 % High 2 - 10 % [place], [place] Platelet mean volume (Bld) [Entitic vol] 6.7 fL Low 7.4 - 10.4 fL [facility] [place], [place] Platelets (Bld) [#/Vol] 540 10*3/uL High 140 - 440 10*3/uL [facility], [place] RBC (Bld) [#/Vol] 3.07 10*6/uL Low 3.8 - 5.2 10*6/uL [facility] [place], [place] WBC (Bld) [#/Vol] 8.1 10*3/uL 3.6 - 10.7 10*3/uL [facility], [place] Test Performed by [facility], [address], [place], [place] [address] [facility], [place] Lactic Acid, Plasmaon 2018 Lactate [Moles/Vol] 1.7 mmol/L 0.7 - 2 mmol/L [facility], [place] Test Performed by [facility], [address], [place], [place] [address] [facility], [place] Metabolic Panelon 06-26-2019 Sodium [Moles/Vol] Slight [facility], [place] Otheron 06-26-2019 Test Performed by [facility], [address], [place], [place] [address] [facility], [place] RBC MORPHOLOGYon 06-26-2019 Anisocytosis Ql (Bld) Slight [facility] [place], [place] Basophilic stippling LM Ql (Bld) Slight [facility] [place], [place] RBC morphology finding Nom (Bld) ABNORMAL [facility], [place] Sodium [Moles/Vol] Moderate [facility], [place] TYPE AND SCREENon 06-26-2019 Sodium [Moles/Vol] Positive [facility], [place] Comment on above: Test Performed by [facility], [address] [place], [place] [address] Sodium [Moles/Vol] Negative [facility], [place] Comment on above: Test Performed by [facility], [address] [place], [place] [address] Sodium [Moles/Vol] O [facility], [place] XR FEMUR RIGHT (MIN 2 VIEWS) on 06-26-2019 Patient Name: WILL ALVARADO ---Diagnostic Radiology--- Exam Date/Time 06/26/2019 22:31:46 EDT Exam CR Femur 2+ Views Right n Ordering Physician KELLEY ELLIOTT TAYLOR Accession Number [id number] CPT4 Codes 03226 () Reason For Exam right AKA wound drainage, swelling, erythema and warmth Report RIGHT FEMUR TWO VIEWS CLINICAL INDICATION: right AKA wound drainage, swelling, erythema and warmth TECHNIQUE: Two views of the right femur. COMPARISON: 06/14/2019 FINDINGS: Status post recent [id number] amputation. Overlying soft tissue swelling and skin boo. No obvious acute bone destruction. IMPRESSION: 1. Soft tissue swelling and skin boo overlie the operative site. No obvious bone destruction. Report Dictated on --- Final --- Dictating Physician: MD UGALDE JOHN R Signed Date and Time: 06/26/2019 10:34 pm Signed by: MD UGALDE JOHN R Transcribed Date and Time: 06/26/2019 10:35 [place], [place] [facility]coming [facility] - 06/26/2019 10:36 PM EDT Patient Name: WILL JACINTO ---Diagnostic Radiology--- Exam Date/Time 06/26/2019 22:31:46 EDT Exam CR Femur 2+ Views Right n Ordering Physician KELLEY ELLIOTT TAYLOR Accession Number [id number] CPT4 Codes 15456 () Reason For Exam right AKA wound drainage, swelling, erythema and warmth Report RIGHT FEMUR TWO VIEWS CLINICAL INDICATION: right AKA wound drainage, swelling, erythema and warmth TECHNIQUE: Two views of the right femur. COMPARISON: 06/14/2019 FINDINGS: Status post recent [id number] amputation. Overlying soft tissue swelling and skin boo. No obvious acute bone destruction. IMPRESSION: 1. Soft tissue swelling and skin boo overlie the operative site. No obvious bone destruction. Report Dictated on --- Final --- Dictating Physician: MD UGALDE JOHN R Signed Date and Time: 06/26/2019 10:34 pm Signed by: MD UGALDE JOHN R Transcribed Date and Time: 06/26/2019 10:35 [place] Comprehensive Metabolic Pane l w/ Reflex to MGon 06-20-2019 Albumin [Mass/Vol] 3.4 g/dL Low 3.5 - 5 g/dL [place] ALP [Catalytic activity/Vol] 124 U/L 38 - 126 U/L [place] ALT [Catalytic activity/Vol] 57 U/L 13 - 69 U/L [place] Anion gap [Moles/Vol] 7 mmol/L [place] AST [Catalytic activity/Vol] 62 U/L High 15 - 46 U/L [place] Bilirubin Ql (U) 0.4 mg/dL 0.2 - 1.3 mg/dL [place] Calcium [Mass/Vol] 8.9 mg/dL 8.4 - 10. 4 mg/dL [place] Chloride [Moles/Vol] 105 mmol/L 98 - 10 7 mmol/L [place] CO2 [Moles/Vol] 26 mmol/L 22 - 30 mmol/L [place] Creatinine [Mass/Vol] 1.18 mg/dL 0.52 - 1.25 mg/dL [place] EGFR IF NonAfrican [place] 48.0 mL/min >60 [place] Comment on above: Source- MDRD equatio n with creatinine calibration to IDMS(NKDEP) eGFR not recommended for drug dose adjustment GFR/1.73 sq M predicted among blacks MDRD (S/P/Bld) [Vol rate/Area] 58.1 mL/min/{1.73_m2} >60 [place] Glucose [Mass/Vol] 85 mg/dL 70 - 100 mg/dL [place] Interpretation and review of laboratory results Abnormal [place] Potassium [Moles/Vol] 4.6 mmol/L 3.5 - 5.1 mmol/L [place] Protein [Mass/Vol] 6.4 g/dL 6.3 - 8.2 g/dL [place] Sodium [Moles/Vol] 139 mmol/L 135 - 145 mmol/L [place] Urea nitrogen [Mass/Vol] 30 mg/dL High 7 - 20 mg/dL [place] Test Performed by [facility], [address] [place] [address] [place] Culture, Aerobic Bacteria wi th Gram Staion 06-20-2019 Aerobic Culture Many CARBAPENEMASE GENE DETECTION BY PCR VIM gene DETECTED IMP gene Not Detected NDM gene Not Detected KPC gene Not Detected OXA48 gene Not Detected The targets listed above are genes that may confer resistance to the carbapenems. Methodology: Real-time PCR ([employer]) [place] Aerobic Culture Pseudomonas aeruginosa Abnormal [place] Aerobic Culture Mixed enteric dorinda present. Abnormal [place] INR Coag (Bld) [Relative time] Moderate polymorphonuclear cells/lpf. Moderate gram positive cocci. Moderate gram negative bacilli. [place] Interpretation and review of laboratory results Abnormal [place] Test Performed by [facility], [facility] [place], [place] [id number] [place] [address] POCT Glucoseon 06-20-2019 Glucose [Mass/Vol] 206 mg/dL High 70 - 100 mg/dL [place] Comment on above: Test performed by gl ucose meter. Results may be 10%-15% lower than serum/plasma values. (CLIA ID [id number]) Interpretation and review of laboratory results Abnormal [place] Test Performed by [facility], [facility] [place] [address] [place] Glucose [Mass/Vol] 200 mg/dL High 70 - 100 mg/dL [place] Comment on above: Test performed by gl ucose meter. Results may be 10%-15% lower than serum/plasma values. (CLIA ID [id number]) Interpretation and review of laboratory results Abnormal [place] Test Performed by [facility], [address] [place] [address] [place] Glucose [Mass/Vol] 189 mg/dL High 70 - 100 mg/dL [place] Comment on above: Test performed by gl ucose meter. Results may be 10%-15% lower than serum/plasma values. (CLIA ID [id number]) Interpretation and review of laboratory results Abnormal [place] Test Performed by [facility], [address] [place], [place] [address] [address] [place] Surgical Pathologyon 019 Sodium [Moles/Vol] SEE BELOW [place], [place] [id number] [facility] PATHOLOGY AND [facility]ORATORY MEDICINE [address] [place] [address] FINAL SURGICAL PATHOLOGY REPORT NAME: DARREN JACINTOArjun MARKSN [id number] : 1965 53 Y F [facility] NO.: [id number] LOCATION: [facility] [phone] [id number] PROCEDURE 06/16/2019 DATE: SURGEON: SERGIO PISANO M.D. RECEIVED 06/17/2019 DATE: ATTENDING: JAYESH JORDAN MD REPORT DATE: 06/20/2019 COPIES TO: DIAGNOSIS: LEG, RIGHT ABOVE THE KNEE AMPUTATION - SKIN WITH ULCERATION AND NECROTIZING ACUTE INFLAMMATION OF SOFT TISSUE OF THE FOOT. 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 MILD CALCIFIC ATHEROSCLEROSIS. NM/NM Signature> ALLEN JERRY M.D. CLINICAL INFORMATION: Not provided SPECIMEN: LEG AMPUTATION, NON-TRAUMATIC GROSS DESCRIPTION: "Right GIULIA Ivy is a right above knee amputation specimen that measures 58 cm from heel to resection margin and 24 cm from heel to tip of big toe. There is an ulcer on the lateral aspect of the foot that measures 4 x 4 cm. The rest of the skin surface shows area of scale and edema. The fifth toe appears surgically absent with scar tissue formation at the site. The rest of the toes appear grossly unremarkable. The femoral, anterior, posterior tibial and dorsalis pedis artery show no significant calcific atherosclerosis. Cassette Summary: 1 skin and soft tissue resections margins; 2 bony resection margins; 3 and 4 sections through the ulcer described; 5 bone underneath the ulcer; 6 femoral artery; 7 posterior tibial artery; 8 anterior tibial and dorsalis pedis arteries. (bits ss, 8) 2 for decal. IVN/KENNETH Disclaimer: The following statement applies to all immunohistochemistry, in situ hybridization, molecular studies, and immunofluorescence testing. The use of one or more reagents in the above tests is regulated as an analyte specific reagent (ASR). These tests were developed and their performance characteristics determined by the clinical laboratories of [facility]. They have not been cleared by the US Food and Drug Administration (FDA). The FDA has determined that such clearance or approval is not necessary. All the above immunostains were performed on paraffin embedded tissue. Appropriate positive and negative controls (where applicable) were run in parallel with the patient's specimen; these controls showed expected staining pattern, with acceptable intensity of staining. Immunohistochemical assays have not been validated on decalcified tissues. Results should be interpreted with caution given the raised possibility of false negativity on decalcified specimens. Professional Performing Location: [address] [address]. DEPARTMENT OF PATHOLOGY AND LABORATORY MEDICINE [place], [place] [address] [place] Anaerobic Cultureon 06-19-20 19 Anaerobic Culture Many [place] Anaerobic Culture Positive Abnormal [place] Interpretation and review of laboratory results Abnormal [place] Test Performed by [facility], [address] [place] [address] [place] Comprehensive Metabolic Pane l w/ Reflex to MGon 06-19-2019 Albumin [Mass/Vol] 3.6 g/dL 3.5 - 5 g/dL [place] ALP [Catalytic activity/Vol] 126 U/L 38 - 126 U/L [place] ALT [Catalytic activity/Vol] 54 U/L 13 - 69 U/L [place] Anion gap [Moles/Vol] 10 mmol/L [place] AST [Catalytic activity/Vol] 71 U/L High 15 - 46 U/L [place] Bilirubin Ql (U) 0.6 mg/dL 0.2 - 1.3 mg/dL [place] Calcium [Mass/Vol] 9.0 mg/dL 8.4 - 10. 4 mg/dL [place] Chloride [Moles/Vol] 101 mmol/L 98 - 10 7 mmol/L [place] CO2 [Moles/Vol] 24 mmol/L 22 - 30 mmol/L [place] Creatinine [Mass/Vol] 1.67 mg/dL High 0.52 - 1.25 mg/dL [place] EGFR IF NonAfrican [place] 32.1 mL/min >60 [place] Comment on above: Source- MDRD equatio n with creatinine calibration to IDMS(NKDEP) eGFR not recommended for drug dose adjustment GFR/1.73 sq M predicted among blacks MDRD (S/P/Bld) [Vol rate/Area] 38.9 mL/min/{1.73_m2} >60 [place] Glucose [Mass/Vol] 180 mg/dL High 70 - 100 mg/dL [place] Interpretation and review of laboratory results Abnormal [place] Potassium [Moles/Vol] 5.7 mmol/L High 3.5 - 5.1 mmol/L [place] Protein [Mass/Vol] 6.8 g/dL 6.3 - 8.2 g/dL [place] Sodium [Moles/Vol] 135 mmol/L 135 - 145 mmol/L [facility] MARYAM Urea nitrogen [Mass/Vol] 33 mg/dL High 7 - 20 mg/dL [facility] Test Performed by [facility], [facility] [place] [address] [facility] MARYAM LAGUERRE Otheron 06-19-2019 Blood Culture, Routine No growth at 5 days. [facility] Test Performed by [facility], [address] [place] [address] Specimen Source Comment:Blood [facility] POCT Glucoseon 06-19-2019 Glucose [Mass/Vol] 135 mg/dL High 70 - 100 mg/dL [facility] MARYAM Comment on above: Test performed by gl ucose meter. Results may be 10%-15% lower than serum/plasma values. (CLIA ID [id number]) Interpretation and review of laboratory results Abnormal [facility] Test Performed by [facility], [address] [place] [address] [facility] MARYAM Glucose [Mass/Vol] 219 mg/dL High 70 - 100 mg/dL [place] Comment on above: Test performed by gl ucose meter. Results may be 10%-15% lower than serum/plasma values. (CLIA ID [id number]) Interpretation and review of laboratory results Abnormal [facility] Test Performed by [facility], [facility] [place] [address] [facility] MARYAM Glucose [Mass/Vol] 222 mg/dL High 70 - 100 mg/dL [place] Comment on above: Test performed by gl ucose meter. Results may be 10%-15% lower than serum/plasma values. (CLIA ID [id number]) Interpretation and review of laboratory results Abnormal [facility] Test Performed by [facility], [address] [place] [address] [facility] MARYAM Procalcitoninon 06-19-2019 Interpretation and review of laboratory results Abnormal [facility] MARYAM Procalcitonin 0.32 ng/mL Abnormal <0.10 [place] Sodium [Moles/Vol] See Below [place] Comment on above: PCT <0.50 = Low risk of severe sepsis and/or septic shock. PCT >2.00 = High risk of severe sepsis and/or septic shock. Test Performed by [facility], [address] [place] [address] [place] Comprehensive Metabolic Pane l w/ Reflex to MGon 06-18-2019 Albumin [Mass/Vol] 3.3 g/dL Low 3.5 - 5 g/dL [place] ALP [Catalytic activity/Vol] 94 U/L 38 - 126 U/L [place] ALT [Catalytic activity/Vol] 44 U/L 13 - 69 U/L [place] Anion gap [Moles/Vol] 10 mmol/L [place] AST [Catalytic activity/Vol] 48 U/L High 15 - 46 U/L [place] Bilirubin Ql (U) 0.5 mg/dL 0.2 - 1.3 mg/dL [place] Calcium [Mass/Vol] 8.7 mg/dL 8.4 - 10. 4 mg/dL [place] Chloride [Moles/Vol] 100 mmol/L 98 - 10 7 mmol/L [place] CO2 [Moles/Vol] 26 mmol/L 22 - 30 mmol/L [place] Creatinine [Mass/Vol] 1.53 mg/dL High 0.52 - 1.25 mg/dL [place] EGFR IF NonAfrican [place] 35.6 mL/min >60 [place] Comment on above: Source- MDRD equatio n with creatinine calibration to IDMS(NKDEP) eGFR not recommended for drug dose adjustment GFR/1.73 sq M predicted among blacks MDRD (S/P/Bld) [Vol rate/Area] 43.1 mL/min/{1.73_m2} >60 [place] Glucose [Mass/Vol] 108 mg/dL High 70 - 100 mg/dL [place] Interpretation and review of laboratory results Abnormal [place] Potassium [Moles/Vol] 4.2 mmol/L 3.5 - 5.1 mmol/L [place] Protein [Mass/Vol] 6.1 g/dL Low 6.3 - 8.2 g/dL [place] Sodium [Moles/Vol] 135 mmol/L 135 - 145 mmol/L [place] Urea nitrogen [Mass/Vol] 29 mg/dL High 7 - 20 mg/dL [place] Test Performed by [facility], [facility] [place] [address] [place] POCT Glucoseon 06-18-2019 Glucose [Mass/Vol] 189 mg/dL High 70 - 100 mg/dL [place] Comment on above: Test performed by gl ucose meter. Results may be 10%-15% lower than serum/plasma values. (CLIA ID [id number]) Interpretation and review of laboratory results Abnormal [facility], MARYAM Test Performed by [facility], [facility] [place] [address] [place] Glucose [Mass/Vol] 207 mg/dL High 70 - 100 mg/dL [place] Comment on above: Test performed by gl ucose meter. Results may be 10%-15% lower than serum/plasma values. (CLIA ID [id number]) Interpretation and review of laboratory results Abnormal [facility], MARYAM Test Performed by [facility], [facility] [place] [address] [place] Glucose [Mass/Vol] 206 mg/dL High 70 - 100 mg/dL [place] Comment on above: Test performed by gl ucose meter. Results may be 10%-15% lower than serum/plasma values. (CLIA ID [id number]) Interpretation and review of laboratory results Abnormal [facility], [place] Test Performed by [facility], [address] [place] [address] [place] Glucose [Mass/Vol] 156 mg/dL High 70 - 100 mg/dL [place] Comment on above: Test performed by gl ucose meter. Results may be 10%-15% lower than serum/plasma values. (CLIA ID [id number]) Interpretation and review of laboratory results Abnormal [place] Test Performed by [facility], [address] [place] [address] [place] CBCon 06-17-2019 Erythrocyte distribution width (RBC) [Ratio] 22.4 % High 11.5 - 14.5 % [place] Hematocrit (Bld) [Volume fraction] 24.8 % Low 35 - 47 % [place] Hemoglobin (Bld) [Mass/Vol] 7.6 g/dL Low 11.7 - 16 g/dL [place] Interpretation and review of laboratory results Abnormal [place] MCH (RBC) [Entitic mass] 23.3 pg Low 26 - 34 pg [place] MCHC (RBC) [Mass/Vol] 30.7 % Low 32 - 36 % [place] MCV (RBC) [Entitic vol] 76.1 fL Low 79 - 98 fL [place], [place] Platelet mean volume (Bld) [Entitic vol] 7.8 fL 7.4 - 10.4 fL [place] Platelets (Bld) [#/Vol] 403 10*3/uL 140 - 440 10*3/uL [place] RBC (Bld) [#/Vol] 3.26 10*6/uL Low 3.8 - 5.2 10*6/uL [place] WBC (Bld) [#/Vol] 13.3 10*3/uL High 3.6 - 10.7 10*3/uL [place] Test Performed by [facility], [address] [place] [address] [place] Comprehensive Metabolic Pane l w/ Reflex to MGon 06-17-2019 Albumin [Mass/Vol] 3.7 g/dL 3.5 - 5 g/dL [place] ALP [Catalytic activity/Vol] 121 U/L 38 - 126 U/L [place] ALT [Catalytic activity/Vol] 30 U/L 13 - 69 U/L [place] Anion gap [Moles/Vol] 14 mmol/L [place] AST [Catalytic activity/Vol] 34 U/L 15 - 46 U/L [place] Bilirubin Ql (U) 0.7 mg/dL 0.2 - 1.3 mg/dL [place] Calcium [Mass/Vol] 8.5 mg/dL 8.4 - 10. 4 mg/dL [place] Chloride [Moles/Vol] 98 mmol/L 98 - 10 7 mmol/L [place] CO2 [Moles/Vol] 21 mmol/L Low 22 - 30 mmol/L [place] Creatinine [Mass/Vol] 0.94 mg/dL 0.52 - 1.25 mg/dL [place] EGFR IF NonAfrican [place] >60.0 >60 mL/min [place] Comment on above: Source- MDRD equatio n with creatinine calibration to IDMS(NKDEP) eGFR not recommended for drug dose adjustment GFR/1.73 sq M predicted among blacks MDRD (S/P/Bld) [Vol rate/Area] mL/min/{1.73_m2} >60 mL/min [place] Glucose [Mass/Vol] 399 mg/dL High 70 - 100 mg/dL [place] Comment on above: repeated Interpretation and review of laboratory results Abnormal [place] Potassium [Moles/Vol] 5.3 mmol/L High 3.5 - 5.1 mmol/L [place] Protein [Mass/Vol] 6.6 g/dL 6.3 - 8.2 g/dL [place] Sodium [Moles/Vol] 134 mmol/L Low 135 - 145 mmol/L [place] Urea nitrogen [Mass/Vol] 25 mg/dL High 7 - 20 mg/dL [place] Test Performed by [facility], [address] [place] [address] [place] Hematologyon 06-17-2019 ABO and Rh group Nom (Bld) 5100 [place] Metabolic Panelon 06-17-2019 Sodium [Moles/Vol] [id number] [place] Sodium [Moles/Vol] released [place] POCT Glucoseon 06-17-2019 Glucose [Mass/Vol] 305 mg/dL High 70 - 100 mg/dL [place] Comment on above: Test performed by gl ucose meter. Results may be 10%-15% lower than serum/plasma values. (CLIA ID [id number]) Interpretation and review of laboratory results Abnormal [place] Test Performed by [facility], [place] [address] [place] Glucose [Mass/Vol] 373 mg/dL High 70 - 100 mg/dL [place] Comment on above: Test performed by gl ucose meter. Results may be 10%-15% lower than serum/plasma values. (CLIA ID [id number]) Interpretation and review of laboratory results Abnormal [place] Test Performed by [facility], [place] [address] [place] Glucose [Mass/Vol] 477 mg/dL High 70 - 100 mg/dL [place] Comment on above: Test performed by gl ucose meter. Results may be 10%-15% lower than serum/plasma values. (CLIA ID [id number]) Interpretation and review of laboratory results Abnormal [place] Test Performed by [facility], [facility] [place] [address] [place] PREPARE RBC (CROSSMATCH)on 0 06-17-2019 Blood product unit ID (Dose) [#] [id number] [place] Blood product unit ID (Dose) [#] [id number] [place] Sodium [Moles/Vol] [id number] mmol/L [place] Sodium [Moles/Vol] [id number] mmol/L [place] Potassiumon 06-17-2019 Interpretation and review of laboratory results Abnormal [place] Potassium [Moles/Vol] 5.4 mmol/L High 3.5 - 5.1 mmol/L [place] Test Performed by [facility], [facility] [place] [address] [place] Procalcitoninon 06-17-2019 Interpretation and review of laboratory results Abnormal [place] Procalcitonin 0.11 ng/mL Abnormal <0.10 [place] Sodium [Moles/Vol] See Below [place], [place] Comment on above: PCT <0.50 = Low risk of severe sepsis and/or septic shock. PCT >2.00 = High risk of severe sepsis and/or septic shock. Test Performed by [facility], [facility] [place] [address] [place], [place] Albuminon 06-16-2019 Albumin [Mass/Vol] 3.9 g/dL 3.5 - 5 g/dL [place] Test Performed by [facility], [facility] [place] [address] [place], [place] CBCon 06-16-2019 Erythrocyte distribution width (RBC) [Ratio] 22.9 % High 11.5 - 14.5 % [place] Hematocrit (Bld) [Volume fraction] 28.2 % Low 35 - 47 % [place] Hemoglobin (Bld) [Mass/Vol] 8.8 g/dL Low 11.7 - 16 g/dL [place] Interpretation and review of laboratory results Abnormal [place] MCH (RBC) [Entitic mass] 23.8 pg Low 26 - 34 pg [place] MCHC (RBC) [Mass/Vol] 31.2 % Low 32 - 36 % [place] MCV (RBC) [Entitic vol] 76.0 fL Low 79 - 98 fL [place], [place] Platelet mean volume (Bld) [Entitic vol] 7.7 fL 7.4 - 10.4 fL [place] Platelets (Bld) [#/Vol] 372 10*3/uL 140 - 440 10*3/uL [place] RBC (Bld) [#/Vol] 3.71 10*6/uL Low 3.8 - 5.2 10*6/uL [place] WBC (Bld) [#/Vol] 6.7 10*3/uL 3.6 - 10.7 10*3/uL [place] Test Performed by [facility], [address] [place] [address], [place] [address] [place] Erythrocyte distribution width (RBC) [Ratio] disregard Critically abnormal 11.5 - 14.5 % [place] Comment on above: CORRECTED RESULT...P revious above value was 23.2, verified on 06/16/19 at 04:45 by LRB . Hematocrit (Bld) [Volume fraction] disregard Critically abnormal 35 - 47 % [place] Comment on above: CORRECTED RESULT...P revious above value was 30.2, verified on 06/16/19 at 04:45 by LRB . Hemoglobin (Bld) [Mass/Vol] disregard Critically abnormal 11.7 - 16 g/dL [place] Comment on above: CORRECTED RESULT...P revious above value was 9.3, verified on 06/16/19 at 04:45 by LRB . Interpretation and review of laboratory results Abnormal [place] MCH (RBC) [Entitic mass] disregard Critically abnormal 26 - 34 pg [place] Comment on above: CORRECTED RESULT...P revious above value was 23.4, verified on 06/16/19 at 04:45 by LRB . MCHC (RBC) [Mass/Vol] disregard Critically abnormal 32 - 36 % [place] Comment on above: CORRECTED RESULT...P revious above value was 30.8, verified on 06/16/19 at 04:45 by LRB . MCV (RBC) [Entitic vol] disregard Critical ly abnormal 79 - 98 fL [place] Comment on above: CORRECTED RESULT...P revious above value was 75.8, verified on 06/16/19 at 04:45 by LRB . RBC (Bld) [#/Vol] disregard Critically abnormal 3.8 - 5.2 10*6/uL [place] Comment on above: CORRECTED RESULT...P revious above value was 3.98, verified on 06/16/19 at 04:45 by LRB . WBC (Bld) [#/Vol] disregard Critically abnormal 3.6 - 10.7 10*3/uL [place] Comment on above: CORRECTED RESULT...P revious above value was 3.7, verified on 06/16/19 at 04:45 by LRB . Test Performed by [facility], [address] [place] [address] [place] Comprehensive Metabolic Pane l w/ Reflex to MGon 06-16-2019 Albumin [Mass/Vol] 3.5 g/dL 3.5 - 5 g/dL [place] ALP [Catalytic activity/Vol] 167 U/L High 38 - 126 U/L [place] ALT [Catalytic activity/Vol] 28 U/L 13 - 69 U/L [place] Anion gap [Moles/Vol] 11 mmol/L [place] AST [Catalytic activity/Vol] 29 U/L 15 - 46 U/L [place] Bilirubin Ql (U) 0.7 mg/dL 0.2 - 1.3 mg/dL [place] Calcium [Mass/Vol] 8.6 mg/dL 8.4 - 10. 4 mg/dL [place] Chloride [Moles/Vol] 98 mmol/L 98 - 10 7 mmol/L [place] CO2 [Moles/Vol] 23 mmol/L 22 - 30 mmol/L [place] Creatinine [Mass/Vol] 0.87 mg/dL 0.52 - 1.25 mg/dL [place] EGFR IF NonAfrican [place] >60.0 >60 mL/min [place] Comment on above: Source- MDRD equatio n with creatinine calibration to IDMS(NKDEP) eGFR not recommended for drug dose adjustment GFR/1.73 sq M predicted among blacks MDRD (S/P/Bld) [Vol rate/Area] mL/min/{1.73_m2} >60 mL/min [place] Glucose [Mass/Vol] 385 mg/dL High 70 - 100 mg/dL [place] Interpretation and review of laboratory results Abnormal [place] Potassium [Moles/Vol] 4.9 mmol/L 3.5 - 5.1 mmol/L [place] Protein [Mass/Vol] 6.5 g/dL 6.3 - 8.2 g/dL [place] Sodium [Moles/Vol] 131 mmol/L Low 135 - 145 mmol/L [place] Urea nitrogen [Mass/Vol] 31 mg/dL High 7 - 20 mg/dL [place] Test Performed by [facility], [place] [address] [place] Hemoglobin A1Con 06-16-2019 eAG 240 mg/dL [place] HbA1c (Bld) [Mass fraction] 10.0 % High 4 - 5.7 % [place], [place] Comment on above: --HgbA1C levels may not be accurate in patients who have renal disease, received recent blood transfusions, are anemic, or who have dyshemoglobinemia. Interpretation and review of laboratory results Abnormal [place] Test Performed by [facility], [address] [place] [address] [place] POCT Glucoseon 06-16-2019 Glucose [Mass/Vol] 386 mg/dL High 70 - 100 mg/dL [place] Comment on above: Test performed by gl ucose meter. Results may be 10%-15% lower than serum/plasma values. (CLIA ID [id number]) Interpretation and review of laboratory results Abnormal [place] Test Performed by [facility], [place] [address] [place] Glucose [Mass/Vol] 287 mg/dL High 70 - 100 mg/dL [place], [place] Comment on above: Test performed by gl ucose meter. Results may be 10%-15% lower than serum/plasma values. (CLIA ID [id number]) Interpretation and review of laboratory results Abnormal [place] Test Performed by [facility], [address] [place] [address] [place] Glucose [Mass/Vol] 285 mg/dL High 70 - 100 mg/dL [place], [place] Comment on above: Test performed by gl ucose meter. Results may be 10%-15% lower than serum/plasma values. (CLIA ID [id number]) Interpretation and review of laboratory results Abnormal [place] Test Performed by [facility], [address] [place] [address] [place] Glucose [Mass/Vol] 431 mg/dL High 70 - 100 mg/dL [place] Comment on above: Test performed by gl ucose meter. Results may be 10%-15% lower than serum/plasma values. (CLIA ID [id number]) Interpretation and review of laboratory results Abnormal [place] Test Performed by [facility], [facility] [place] [address] [place] Glucose [Mass/Vol] 431 mg/dL High 70 - 100 mg/dL [place], [place] Comment on above: Test performed by gl ucose meter. Results may be 10%-15% lower than serum/plasma values. (CLIA ID [id number]) Interpretation and review of laboratory results Abnormal [place] Test Performed by [facility], [place] [address] [place], [place] Vancomycin, [place] 019 Vancomycin Tr 17.1 ug/mL 15 - 20 ug/mL [place] Comment on above: . Test Performed by [facility], [address] [place] [address] [place] CBCon 06-15-2019 Erythrocyte distribution width (RBC) [Ratio] 22.9 % High 11.5 - 14.5 % [place] Hematocrit (Bld) [Volume fraction] 27.2 % Low 35 - 47 % [place] Hemoglobin (Bld) [Mass/Vol] 8.8 g/dL Low 11.7 - 16 g/dL [place] Interpretation and review of laboratory results Abnormal [place] MCH (RBC) [Entitic mass] 24.1 pg Low 26 - 34 pg [place] MCHC (RBC) [Mass/Vol] 32.2 % 32 - 36 % [place] MCV (RBC) [Entitic vol] 74.8 fL Low 79 - 98 fL M [place], [place] Platelet mean volume (Bld) [Entitic vol] 7.8 fL 7.4 - 10.4 fL [place] Platelets (Bld) [#/Vol] 353 10*3/uL 140 - 440 10*3/uL [place] RBC (Bld) [#/Vol] 3.64 10*6/uL Low 3.8 - 5.2 10*6/uL [place] WBC (Bld) [#/Vol] 6.6 10*3/uL 3.6 - 10.7 10*3/uL [place] Test Performed by [facility], [address] [place] [id number] [place] [address] Comprehensive Metabolic Pane l w/ Reflex to MGon 06-15-2019 Albumin [Mass/Vol] 3.4 g/dL Low 3.5 - 5 g/dL [place] ALP [Catalytic activity/Vol] 168 U/L High 38 - 126 U/L [place] ALT [Catalytic activity/Vol] 27 U/L 13 - 69 U/L [place] Anion gap [Moles/Vol] 10 mmol/L [place], [place] AST [Catalytic activity/Vol] 30 U/L 15 - 46 U/L [place] Bilirubin Ql (U) 0.5 mg/dL 0.2 - 1.3 mg/dL [place] Calcium [Mass/Vol] 8.7 mg/dL 8.4 - 10. 4 mg/dL [place] Chloride [Moles/Vol] 100 mmol/L 98 - 10 7 mmol/L [place] CO2 [Moles/Vol] 25 mmol/L 22 - 30 mmol/L [place] Creatinine [Mass/Vol] 0.86 mg/dL 0.52 - 1.25 mg/dL [place] EGFR IF NonAfrican [place] >60.0 >60 mL/min [place] Comment on above: Source- MDRD equatio n with creatinine calibration to IDMS(NKDEP) eGFR not recommended for drug dose adjustment GFR/1.73 sq M predicted among blacks MDRD (S/P/Bld) [Vol rate/Area] mL/min/{1.73_m2} >60 mL/min [place] Glucose [Mass/Vol] 281 mg/dL High 70 - 100 mg/dL [place] Interpretation and review of laboratory results Abnormal [place] Potassium [Moles/Vol] 4.7 mmol/L 3.5 - 5.1 mmol/L [place] Protein [Mass/Vol] 6.4 g/dL 6.3 - 8.2 g/dL [place] Sodium [Moles/Vol] 135 mmol/L 135 - 145 mmol/L [place] Urea nitrogen [Mass/Vol] 31 mg/dL High 7 - 20 mg/dL [place] Test Performed by [facility], [address] [place] [id number] [place] [address] EKG 12 Leadon 06-15-2019 [facility] Incoming Cardiology Results From [facility] - 06/15/2019 5:33 PM EDT [facility] Test Date: 2019-06-14 Pat Name: Will Jacinto Department: [facility] Room: [facility] Gender: F 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 Operator: DILLON : 1965 Requested By: Order Number: [id number] Reading MD: Ezio Schmitt Measurements Intervals [place] Rate: 97 P: 50 NM: 169 QRS: -27 QRSD: 113 T: 50 QT: 363 QTc: 461 Interpretive Statements Sinus rhythm Low voltage, precordial leads Left ventricular hypertrophy ST elev, consider awmi Electronically Signed On 06-15-2019 17:32:44 EDT by Ezio Schmitt [facility] Test Date: 2019-06-14 Pat Name: Will Jacinto Department: 1A6 Room: [facility] Gender: F 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 Operator: DILLON : 1965 Requested By: Order Number: [id number] Reading MD: Ezio Schmitt Measurements Intervals [place] Rate: 97 P: 50 NM: 169 QRS: -27 QRSD: 113 T: 50 QT: 363 QTc: 461 Interpretive Statements Sinus rhythm Low voltage, precordial leads Left ventricular hypertrophy ST elev, consider awmi Electronically Signed On 06-15-2019 17:32:44 EDT by Ezio Schmitt [facility] [place] POCT Glucoseon 06-15-2019 Glucose [Mass/Vol] 402 mg/dL High 70 - 100 mg/dL [facility] [place] Comment on above: Test performed by gl ucose meter. Results may be 10%-15% lower than serum/plasma values. (CLIA ID [id number]) Interpretation and review of laboratory results Abnormal [place], [employer] Test Performed by [facility] [employer], [facility] [place] [address] [place] Glucose [Mass/Vol] 315 mg/dL High 70 - 100 mg/dL [facility] [place] Comment on above: Test performed by gl ucose meter. Results may be 10%-15% lower than serum/plasma values. (CLIA ID [id number]) Interpretation and review of laboratory results Abnormal [place], [employer] Test Performed by [facility] [employer], [address] [place] [address] [employer] [place], [place] Glucose [Mass/Vol] 290 mg/dL High 70 - 100 mg/dL [facility] [place] Comment on above: Test performed by gl ucose meter. Results may be 10%-15% lower than serum/plasma values. (CLIA ID [id number]) Interpretation and review of laboratory results Abnormal [place], [employer] Test Performed by [facility] [facility], [address] [place] [address] [employer] [place], [employer] Glucose [Mass/Vol] 414 mg/dL High 70 - 100 mg/dL [facility] [place] Comment on above: Test performed by gl ucose meter. Results may be 10%-15% lower than serum/plasma values. (CLIA ID [id number]) Interpretation and review of laboratory results Abnormal [place] Test Performed by [facility], [place] [address] [place] Glucose [Mass/Vol] 366 mg/dL High 70 - 100 mg/dL [place] Comment on above: Test performed by gl ucose meter. Results may be 10%-15% lower than serum/plasma values. (CLIA ID [id number]) Interpretation and review of laboratory results Abnormal [place] Test Performed by [facility], [facility] [place] [address] [place] Glucose [Mass/Vol] 357 mg/dL High 70 - 100 mg/dL [place] Comment on above: Test performed by gl ucose meter. Results may be 10%-15% lower than serum/plasma values. (CLIA ID [id number]) Interpretation and review of laboratory results Abnormal [place] Test Performed by [facility], [facility] [place] [place] [id number] [place] [address] Add On Lab Teston 06-14-2019 Sodium [Moles/Vol] Accepted [place], [place] Comment on above: Specimen available & acceptable for analysis. Test Performed by [facility], [facility] [place], [place] [id number] [place] [address] Basic Metabolic Panelon 08-0 Anion gap [Moles/Vol] 13 mmol/L [place] Calcium [Mass/Vol] 9.6 mg/dL 8.4 - 10. 4 mg/dL [place] Chloride [Moles/Vol] 96 mmol/L Low 98 - 10 7 mmol/L [place] CO2 [Moles/Vol] 27 mmol/L 22 - 30 mmol/L [place] Creatinine [Mass/Vol] 0.89 mg/dL 0.52 - 1.25 mg/dL [place] EGFR IF NonAfrican [place] >60.0 >60 mL/min [place] Comment on above: Source- MDRD equatio n with creatinine calibration to IDMS(NKDEP) eGFR not recommended for drug dose adjustment GFR/1.73 sq M predicted among blacks MDRD (S/P/Bld) [Vol rate/Area] mL/min/{1.73_m2} >60 mL/min [place] Glucose [Mass/Vol] 325 mg/dL High 70 - 100 mg/dL [place] Interpretation and review of laboratory results Abnormal [place] Potassium [Moles/Vol] 4.8 mmol/L 3.5 - 5.1 mmol/L [place] Sodium [Moles/Vol] 135 mmol/L 135 - 145 mmol/L [place] Urea nitrogen [Mass/Vol] 30 mg/dL High 7 - 20 mg/dL [place] Beta-Hydroxybutyrateon 06-14 Beta-Hydroxybutyrate 1.24 mg/dL 0.2 - 2 .81 mg/dL [place] C-Reactive Proteinon 019 CRP [Mass/Vol] 30.7 mg/L High 0 - 6 mg/L [place], [place] Comment on above: . Interpretation and review of laboratory results Abnormal [place] Test Performed by [facility], [address] [place] [id number] [place] [address] Hemogram (CBC) w/Auto Diffon 06-14-2019 Absolute Baso # 0.0 10*3/uL 0 - 0.2 10*3/uL [place] Absolute Neut # 4.8 10*3/uL 1.8 - 7 10*3/uL [place] Basophils/100 WBC (Bld) 0.5 % 0 - 2 % M [place], [place] Eosinophils (Bld) [#/Vol] 0.1 10*3/uL 0 - 0.5 10*3/uL [place] Eosinophils/100 WBC (Bld) 1.1 % 1 - 6 % [place] Erythrocyte distribution width (RBC) [Ratio] 22.6 % High 11.5 - 14.5 % [place] Granulocytes/100 WBC (Bld) 69.0 % 40 - 80 % [place] Hematocrit (Bld) [Volume fraction] 30.2 % Low 35 - 47 % [place] Hemoglobin (Bld) [Mass/Vol] 9.6 g/dL Low 11.7 - 16 g/dL [place] Interpretation and review of laboratory results Abnormal [place] Lymphocytes (Bld) [#/Vol] 1.5 10*3/uL 1 - 4.3 10*3/uL [place] Lymphocytes/100 WBC (Bld) 20.9 % 20 - 40 % [place] MCH (RBC) [Entitic mass] 23.8 pg Low 26 - 34 pg [place] MCHC (RBC) [Mass/Vol] 31.7 % Low 32 - 36 % [place] MCV (RBC) [Entitic vol] 75.1 fL Low 79 - 98 fL [place], [place] Monocytes (Bld) [#/Vol] 0.6 10*3/uL 0 - 0.8 10*3/uL [place] Monocytes/100 WBC (Bld) 8.5 % 2 - 10 % [place], [place] Platelet mean volume (Bld) [Entitic vol] 7.8 fL 7.4 - 10.4 fL [place] Platelets (Bld) [#/Vol] 396 10*3/uL 140 - 440 10*3/uL [place] RBC (Bld) [#/Vol] 4.03 10*6/uL 3.8 - 5.2 10*6/uL [place] WBC (Bld) [#/Vol] 7.0 10*3/uL 3.6 - 10.7 10*3/uL [place] Test Performed by [facility] [address] [place] [address] [place] Lactic Acid, Plasmaon 2018 Interpretation and review of laboratory results Abnormal [place] Lactate [Moles/Vol] 3.7 mmol/L Critically high 0.7 - 2 mmol/L [place], [place] Comment on above: Repeated Test Performed by [facility] [address] [facility] [facility], [place] [id number] [place] [address] Otheron 06-14-2019 Test Performed by [facility], [facility] [address], [place] [id number] [place] [address] POCT Glucoseon 06-14-2019 Glucose [Mass/Vol] 325 mg/dL High 70 - 100 mg/dL [place] Comment on above: Test performed by ucose meter. Results may be 10%-15% lower than serum/plasma values. (CLIA ID [id number]) Interpretation and review of laboratory results Abnormal [place] Test Performed by [facility], [facility] [place] [id number] [place] [address] Procalcitoninon 06-14-2019 Procalcitonin <0.10 <0.10 ng/mL [place] Sodium [Moles/Vol] See Below [place] Comment on above: PCT <0.50 = Low risk of severe sepsis and/or septic shock. PCT >2.00 = High risk of severe sepsis and/or septic shock. Test Performed by [facility], [facility] [place] [place] [id number] [place] [address] Protime-INRon 06-14-2019 INR Coag (PPP) [Relative time] 1.0 {INR} [place], [place] Comment on above: Recommended Anticoag ulant Therapy: SEE BELOW ----- INR of 2.0 - 3.0 : - Prophylaxis of Venous Thrombosis (high-risk surgery) - Treatment of Venous Thrombosis - Treatment of Pulmonary Embolism (Includes tissue heart valves, Acute Myocardial Infarction to prevent systemic embolism, Valvular Heart Disease, and Atrial Fibrillation) ----- INR of 2.5 - 3.5 : - Mechanical Prosthetic Valves (high risk) - If oral anticoagulant therapy is used to prevent Myocardial Infarction PT Coag (PPP) [Time] 10.9 s 9 - 12 s [place], [place] Comment on above: . Test Performed by [facility], [address] [facility] [place] [id number] [place] [address] Sedimentation Rateon 019 Interpretation and review of laboratory results Abnormal [place] Sed Rate 65 mm/h High 0 - 20 mm/h [facility], [place] Test Performed by [facility], [address] [place] [address] [facility], [place] TYPE AND SCREENon 06-14-2019 Sodium [Moles/Vol] O [facility], [place] Sodium [Moles/Vol] Positive [facility], [place] Comment on above: Test Performed by [facility], [address] [place] [address] Sodium [Moles/Vol] Negative [facility], [place] Comment on above: Test Performed by [facility], [address] [place] [address] Test Performed by [facility], [address] [place] [address] [facility], [place] XR CHEST 1 VWon 06-14-2019 [facility] - 06/14/2019 8:45 PM EDT Patient Name: WILL JACINTO ---Diagnostic Radiology--- Exam Date/Time 06/14/2019 20:33:50 EDT Exam CR Chest 1 View Frontal Ordering Physician SCOOTER MCCOLLUM Accession Number [id number] CPT4 Codes 34244 () Reason For Exam preop Report Portable chest 06/14/2019: Clinical Information: Preop. Findings: A single AP portable view of the chest was obtained at 1950 hours. Comparison was made to the prior study 01/12/2019. The trachea is midline. The heart is not enlarged. No focal areas of consolidation or volume loss are seen. There are no pleural effusions. The pulmonary vasculature does not appear congested. The visualized bony structures are intact. Impression: No acute process. Report Dictated on --- Final --- Dictated: 06/14/2019 8:44 pm Dictating Physician: MD ALLEN RISA Signed Date and Time: 06/14/2019 8:44 pm Signed by: MD ALLEN RISA Transcribed Date and Time: 06/14/2019 8:44 [facility] [place] Patient Name: WILL ALVARADO ---Diagnostic Radiology--- Exam Date/Time 06/14/2019 20:33:50 EDT Exam CR Chest 1 View Frontal Ordering Physician [id number] MCDOWELL Accession Number [id number] CPT4 Codes 17021 () Reason For Exam preop Report Portable chest 06/14/2019: Clinical Information: Preop. Findings: A single AP portable view of the chest was obtained at 1950 hours. Comparison was made to the prior study 01/12/2019. The trachea is midline. The heart is not enlarged. No focal areas of consolidation or volume loss are seen. There are no pleural effusions. The pulmonary vasculature does not appear congested. The visualized bony structures are intact. Impression: No acute process. Report Dictated on --- Final --- Dictated: 06/14/2019 8:44 pm Dictating Physician: MD ALLEN RISA Signed Date and Time: 06/14/2019 8:44 pm Signed by: MD ALLEN RISA Transcribed Date and Time: 06/14/2019 8:44 [place] XR FEMUR RIGHT (MIN 2 VIEWS) on 06-14-2019 [facility] - 06/14/2019 11:58 PM EDT Patient Name: WILL JACINTO ---Diagnostic Radiology--- Exam Date/Time 06/14/2019 23:38:07 EDT Exam CR Femur 2+ Views Right n Ordering Physician [employer] SCOOTER Accession Number [id number] CPT4 Codes 76448 () Reason For Exam pain Report CLINICAL INFORMATION: Right lower extremity pain. History of diabetic foot infection. AP and lateral views of the right femur are provided. There are no comparison studies. FINDINGS: Moderate degenerative changes are noted about the hip and knee. There is no acute fracture or dislocation. No knee joint effusion is seen. The bone mineralization is within normal limits. IMPRESSION: 1. Degenerative changes in the hip and knee. 2. No acute osseous findings. Report Dictated on Workstation: [id number] --- Final --- Dictated: 06/14/2019 11:55 pm Dictating Physician: MD OVALLES JEFFREY Signed Date and Time: 06/14/2019 11:57 pm Signed by: MD OVALLES JEFFREY Transcribed Date and Time: 06/14/2019 11:55 [place] Patient Name: WILL ALVARADO ---Diagnostic Radiology--- Exam Date/Time 06/14/2019 23:38:07 EDT Exam CR Femur 2+ Views Right n Ordering Physician SCOOTER MCCOLLUM Accession Number [id number] CPT4 Codes 60166 () Reason For Exam pain Report CLINICAL INFORMATION: Right lower extremity pain. History of diabetic foot infection. AP and lateral views of the right femur are provided. There are no comparison studies. FINDINGS: Moderate degenerative changes are noted about the hip and knee. There is no acute fracture or dislocation. No knee joint effusion is seen. The bone mineralization is within normal limits. IMPRESSION: 1. Degenerative changes in the hip and knee. 2. No acute osseous findings. Report Dictated on Workstation: [id number] --- Final --- Dictated: 06/14/2019 11:55 pm Dictating Physician: MD OVALLES JEFFREY Signed Date and Time: 06/14/2019 11:57 pm Signed by: MD OVALLES JEFFREY Transcribed Date and Time: 06/14/2019 11:55 [place] XR FOOT RIGHT (MIN 3 VIEWS)o n 06-14-2019 Patient Name: WILL ALVARADO ---Diagnostic Radiology--- Exam Date/Time 06/14/2019 16:26:30 EDT Exam CR Foot Complete 3+ Views Right Ordering Physician MD ORTIZ DOUGALAS R. Accession Number [id number] CPT4 Codes 81069 () Reason For Exam R foot xray - Big lateral R foot ulcer. osteomyelitis? Report Examination: Right foot Clinical Indication: Lateral ulceration concern for osteomyelitis Comparison: None Findings: Three views left foot. There is a large soft tissue defect seen along the plantar lateral midfoot. This extends deep down to bone with there is been previous resection of the fifth digit. There is minimal to no overlying soft tissue coverage. There is no definite osseous erosion to confirm osteomyelitis by x-ray. Advanced degenerative changes within the midfoot with joint space narrowing and marginal osteophytes. Some endplate disruption, sclerosis consistent with neuropathic changes similar to previous examination worst within the fourth digit tarsal metatarsal articulation. Calcaneal enthesophyte/bone spur. There is soft tissue swelling diffusely somewhat related to body habitus and probable chronic venous insufficiency. Impression: 1. Large soft tissue ulceration along the lateral midfoot adjacent to a previously resected fifth digit. The ulceration extends down to residual bone fragments from the fifth digit raising concern for osteomyelitis given no significant soft tissue coverage, however there is no erosion or definite osteolysis to confirm osteomyelitis. Consider further evaluation with MRI or CT. 2. 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 Report Dictated on Workstation: [employer] --- Final --- Dictated: 06/14/2019 4:40 pm Dictating Physician: MD GREGORY ANTHONY J Signed Date and Time: 06/14/2019 4:51 pm Signed by: MD GREGORY ANTHONY J Transcribed Date and Time: 06/14/2019 4:40 [place], [place], [place] [facility] - 06/14/2019 4:52 PM EDT Patient Name: WILL JACINTO ---Diagnostic Radiology--- Exam Date/Time 06/14/2019 16:26:30 EDT Exam CR Foot Complete 3+ Views Right Ordering Physician MD MONY, RENE Fontaine Accession Number [id number] CPT4 Codes 09390 () Reason For Exam R foot xray - Big lateral R foot ulcer. osteomyelitis? Report Examination: Right foot Clinical Indication: Lateral ulceration concern for osteomyelitis Comparison: None Findings: Three views left foot. There is a large soft tissue defect seen along the plantar lateral midfoot. This extends deep down to bone with there is been previous resection of the fifth digit. There is minimal to no overlying soft tissue coverage. There is no definite osseous erosion to confirm osteomyelitis by x-ray. Advanced degenerative changes within the midfoot with joint space narrowing and marginal osteophytes. Some endplate disruption, sclerosis consistent with neuropathic changes similar to previous examination worst within the fourth digit tarsal metatarsal articulation. Calcaneal enthesophyte/bone spur. There is soft tissue swelling diffusely somewhat related to body habitus and probable chronic venous insufficiency. Impression: 1. Large soft tissue ulceration along the lateral midfoot adjacent to a previously resected fifth digit. The ulceration extends down to residual bone fragments from the fifth digit raising concern for osteomyelitis given no significant soft tissue coverage, however there is no erosion or definite osteolysis to confirm osteomyelitis. Consider further evaluation with MRI or CT. 2. 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 Report Dictated on Workstation: [id number] --- Final --- Dictated: 06/14/2019 4:40 pm Dictating Physician: MD COLT, ROSE Escobar Signed Date and Time: 06/14/2019 4:51 pm Signed by: MD GREGORY ANTHONY J Transcribed Date and Time: 06/14/2019 4:40 [facility] 01-03-2019 CNOV Office Visit (PLWDMR ) -------- OPHELIAWILL Gilliam ([id number]) 1965 M Date Time Provider Department 01/03/19 2:20 PM [facility] WOUND CARE [facility] During your visit today, we recorded the following information about you: Temperature Pulse Respiration Blood pressure 98.6 degrees 101/minute 18/minute 122/58 Jayson Hawthorne MD, MD 01/04/2019 1:30 PM Signed [facility] CENTER NOTE Patient Name: Will Jacinto Date: 01/03/2019 ASSESSMENT: Right leg cellulitis with wound infection - likely from worsening edema Right lateral foot wound infection PsAG and diphtheroid infection Leg lymphedema Morbid Obesity DM2 Right foot lateral plantar aspect nonhealing wound: Concern of recurrent infection ? PLAN: Check wound cultures today Continue oral doxycycline for 1 week. Add intravenous Zosyn 3.375 g IV every 6 hours for 10 days. He is okay for a PICC line placement of that is required for home IV antibiotics. We will treat the potential which appears to be a C or E as a colonizer at this point. If the patient fails to improve in 1-2 weeks, he will need to be put on Avycaz. Prescription orders written on prison paperwork Discussed with patient in detail Modify antibiotics according to the wound cultures Follow-up in 2 week?in the wound center INTERVAL HISTORY: ROS done with pt and negative unless stated. The patient's wound cultures from last week are growing MRSA, pseudomonas aeruginosa, Providentia, Proteus. Despite the doxycycline there has not been much improvement. The patient continues to take doxycycline however the wound continues to have an order to it although less purulence at this time. MEDICATIONS: doxycycline monohydrate (MONODOX) 100 mg capsule Take 1 capsule by mouth twice daily for 7 days. doxycycline hyclate (VIBRAMYCIN) 100 mg capsule Take by mouth. doxycycline hyclate (VIBRAMYCIN) 100 mg capsule Take 100 mg by mouth. ARIPiprazole (ABILIFY) 10 mg tablet Take 10 mg by mouth once daily. acetaminophen 325 mg cap Take 2 capsules by mouth every 6 hours. Acidophilus-Pectin, [place] 25 million cell -100 mg tab Take 1 tablet by mouth twice daily. aspirin, enteric coated (ASPIRIN, ENTERIC COATED) 81 mg EC tablet Take 81 mg by mouth once daily. Bisacodyl (DULCOLAX) 5 mg tab Take 1 tablet by mouth as needed. bisacodyl (DULCOLAX, BISACODYL,) 10 mg supp 10 mg by RECTAL route every 24 hours. FLUoxetine (PROZAC) 10 mg capsule Take 10 mg by mouth once daily. FLUoxetine (PROZAC) 20 mg capsule Take 20 mg by mouth once daily. heparin sodium,porcine (HEPARIN LOCK FLUSH INTRAVEN.) Inject 5 mL intravenously every 8 hours. insulin lispro (HUMALOG LEONARDO KWIKPEN U-100) 100 unit/mL inph Inject 100 Units subcutaneously three times daily before meals. insulin regular hum U-500 conc (HUMULIN R U-500, CONC, KWIKPEN) 500 unit/mL (3 mL) inpn Inject 32 Units subcutaneously daily with breakfast. insulin regular hum U-500 conc (HUMULIN R U-500, CONC, KWIKPEN) 500 unit/mL (3 mL) inpn Inject 38 Units subcutaneously daily with breakfast. HYDROcodone-acetaminophe n (NORCO) 5-325 mg per tablet Take 1 tablet by mouth every 4 hours. furosemide (LASIX) 80 mg tablet Take 80 mg by mouth once daily. insulin detemir U-100 (LEVEMIR U-100 INSULIN) 100 unit/mL injection Inject 86 Units subcutaneously daily at bedtime. lisinopril (ZESTRIL, PRINIVIL) 40 mg tablet Take 40 mg by mouth once daily. metFORMIN (GLUCOPHAGE) 1,000 mg tablet Take 1,000 mg by mouth twice daily with meals. magnesium hydroxide (MILK OF MAGNESIA ORAL) Take 30 mL by mouth every 24 hours. simvastatin (ZOCOR) 20 mg tablet Take 20 mg by mouth daily at bedtime. PHYSICAL EXAM: Vital signs: stable, afeb General: alert, oriented, NAD Lungs: bilaterally clear to auscultation Heart: regular rate and rhythm Abdomen: soft, non tender, non distended, BS+ Extremities: no swollen joints Skin: no rash Right lateral foot wound and right lateral leg wound with pale granulation tissue mild amount of slough and no surrounding cellulitis. Odorous drainage present with some purulence Lab data: reviewed No results found for: WBC, HB, INR, NA, K, CO2, BUN, CREAT, AST, ALT, TBILI, ALKPHOS, WSR, LACT, VANCORA Microbiology data: reviewed Imaging data: reviewed Jayson Hawthorne MD [phone] 01/03/2019 2:22 PM Roselia Sandoval, RN, RN 01/03/2019 2:58 PM Addendum Nursing Note See provider note for wound description and measurements Dressing removed and wound washed with saline solution 0.9% In the presence and direction of the provider wound care as written below: Wounds were not measured during visit. 1. Right lateral lower le. Right lateral ankle: Wound cleansed with saline solution x 10 cc. Pat Dry. Wound cultures taken of both wounds. Calcium alginate applied in to the wound bed. Zinc unna hernandez applied to right leg. Unna Boot Application: zinc paste wrap applied to right lower extremity followed by a layer of cast padding, 4" coban and topped with a piece of stockinet from behind the toes to 1" below the knee. Toes are warm and pink before and and post application with a + dorsal pedis pulse on palpation. It was demonstrated to the patient how to check for adequate circulation. If the patient exhibits a change in color to the extremity, change in temperature, increased pain, or the boot becomes wet or too tight, the patient was instructed to remove the boot or go to the Emergency Department. Patient voices understanding with intent to comply. PLAN: Return to the wound center to see ID in 2 weeks Rx: Doxycycline continued and IV antibiotics ordered Zosyn to facility EDUCATION: The patient/family was instructed how to wash the wound(s) with dial soap, rinsing with water, AND patting dry. Visual demonstration on how to apply the dressing. Signs AND symptoms of infection were reviewed: Increased redness, swelling, pain, green, yellow drainage, fever or chills all would need to be evaluated by a Physician. Patient received typed homegoing wound care instructions and has expressed intent to comply. Roselia Sandoval, RN, RN 01/03/2019 2:53 PM Addendum WOUND CARE INSTRUCTIONS Will Jacinto Wound location: Right lateral foot and right lateral lower leg Continue current wound care from [facility] Compression: ? Cast cover may be purchased at your local drug store to wear to allow you to shower ? Remove compression wraps if they become uncomfortable or cause change in color or sensation to the extremity. Rewrap as instructed. To give your wound the best chance to heal: - Eat three balanced meals daily focusing on the protein - Control swelling by elevating the extremity above your heart - exercise the extremity - Control your blood sugar. Keep blood sugar less than 200 - Complete your wound care instructions - Vitamin C 500 mg twice daily - Multiple Vitamin Daily - Drink a protein shake daily - glucerna or premiere clear Report any of the following changes to the Wound Center at [phone] or go to the Emergency Department: ? Fever or chills ? Increased drainage ? Green or yellow drainage ? Foul odor ? Increased pain ? Hardness around the wound ? Redness, warmth or swelling of the surrounding tissue ? Color change to the wound PLAN: Return to the wound center to see ID in 2 weeks Rx: IV antibiotics per Dr. Hawthorne, PICC line to be placed. Zosyn Continue Doxycycline Dr. Marine MD/pw Referring Provider: SELF [200] Allergies As of Date: 01/03/2019 (No Known Allergies) Date Reviewed: 01/03/2019 Reviewed by: Priscila Cantu) ZINA Vazquez - Fully Assessed Reason for Visit: Wound Check [133] Cmt: right lateral leg Primary Visit Diagnosis:History of wound infection [Z86.19] Order(s):WOUND CULTURE AND GRAM STAIN [SQWCUL] Order #: [id number]. #:[id number] WOUND CULTURE AND GRAM STAIN [SQWCUL] Order #: [id number]. #:[id number] Prescriptions as of 01/03/2019 Sig: DOXYCYCLINE MONOHYDRATE 100 M* Take 1 capsule by mouth twice* DOXYCYCLINE HYCLATE 100 MG CA* Take by mouth. DOXYCYCLINE HYCLATE 100 MG CA* Take 100 mg by mouth. ARIPIPRAZOLE 10 MG TABLET Take 10 mg by mouth once rhoda* ACETAMINOPHEN 325 MG CAPSULE Take 2 capsules by mouth ever* ACIDOPHILUS 25 MILLION CELL-P* Take 1 tablet by mouth twice * ASPIRIN 81 MG TABLET,DELAYED * Take 81 mg by mouth once rhoda* BISACODYL 5 MG TABLET Take 1 tablet by mouth as nee* BISACODYL 10 MG RECTAL SUPPOS* 10 mg by RECTAL route every 2* FLUOXETINE 10 MG CAPSULE Take 10 mg by mouth once rhoda* FLUOXETINE 20 MG CAPSULE Take 20 mg by mouth once rhoda* HEPARIN LOCK FLUSH INTRAVEN. Inject 5 mL intravenously declan* INSULIN LISPRO (U-100) 100 UN* Inject 100 Units subcutaneous* INSULIN REGULAR HUMAN U-500 "* Inject 32 Units subcutaneousl* INSULIN REGULAR HUMAN U-500 "* Inject 38 Units subcutaneousl* HYDROCODONE 5 MG-ACETAMINOPHE* Take 1 tablet by mouth every * FUROSEMIDE 80 MG TABLET Take 80 mg by mouth once rhoda* INSULIN DETEMIR (U-100) 100 U* Inject 86 Units subcutaneousl* LISINOPRIL 40 MG TABLET Take 40 mg by mouth once rhoda* METFORMIN 1,000 MG TABLET Take 1,000 mg by mouth twice * MILK OF MAGNESIA ORAL Take 30 mL by mouth every 24 * SIMVASTATIN 20 MG TABLET Take 20 mg by mouth daily at * Problem List As Of Date: 01/03/2019 (None) Other instructions from your clinician: WOUND CARE INSTRUCTIONS Will Jacinto Wound location: Right lateral foot and right lateral lower leg Continue current wound care from [facility] Compression: ? Cast cover may be purchased at your local drug store to wear to allow you to shower ? Remove compression wraps if they become uncomfortable or cause change in color or sensation to the extremity. Rewrap as instructed. To give your wound the best chance to heal: - Eat three balanced meals daily focusing on the protein - Control swelling by elevating the extremity above your heart - exercise the extremity - Control your blood sugar. Keep blood sugar less than 200 - Complete your wound care instructions - Vitamin C 500 mg twice daily - Multiple Vitamin Daily - Drink a protein shake daily - glucerna or premiere clear Report any of the following changes to the Wound Center at [phone] or go to the Emergency Department: ? Fever or chills ? Increased drainage ? Green or yellow drainage ? Foul odor ? Increased pain ? Hardness around the wound ? Redness, warmth or swelling of the surrounding tissue ? Color change to the wound PLAN: Return to the wound center to see ID in 2 weeks Rx: IV antibiotics per Dr. Hawthorne, PICC line to be placed. Zosyn Continue Doxycycline Dr. aMrine MD/pw Visit Notes: >> Roselia (Rn) GLYNN Sandoval Tuchris Jan 03, 2019 2:23 PM Status: Addendum Nursing Note See provider note for wound description and measurements Dressing removed and wound washed with saline solution 0.9% In the presence and direction of the provider wound care as written below: Wounds were not measured during visit. 1. Right lateral lower le. Right lateral ankle: Wound cleansed with saline solution x 10 cc. Pat Dry. Wound cultures taken of both wounds. Calcium alginate applied in to the wound bed. Zinc unna hernandez applied to right leg. Unna Boot Application: zinc paste wrap applied to right lower extremity followed by a layer of cast padding, 4" coban and topped with a piece of stockinet from behind the toes to 1" below the knee. Toes are warm and pink before and and post application with a + dorsal pedis pulse on palpation. It was demonstrated to the patient how to check for adequate circulation. If the patient exhibits a change in color to the extremity, change in temperature, increased pain, or the boot becomes wet or too tight, the patient was instructed to remove the boot or go to the Emergency Department. Patient voices understanding with intent to comply. PLAN: Return to the wound center to see ID in 2 weeks Rx: Doxycycline continued and IV antibiotics ordered Zosyn to facility EDUCATION: The patient/family was instructed how to wash the wound(s) with dial soap, rinsing with water, AND patting dry. Visual demonstration on how to apply the dressing. Signs AND symptoms of infection were reviewed: Increased redness, swelling, pain, green, yellow drainage, fever or chills all would need to be evaluated by a Physician. Patient received typed homegoing wound care instructions and has expressed intent to comply. Encounter Status:Closed by DEBBIE CASEY on 01/04/19 [facility] PROGRESSon 01-03-2019 Protein mass conc HNO ID: [id number] Author: Jayson Hawthorne MD Service: (none) Author Type: Physician Type: Progress Notes Filed: 01/04/2019 1:30 PM Note Text: INFECTIOUS DISEASE WOUND CENTER NOTE Patient Name: Will Jacinto Date: 01/03/2019 ASSESSMENT: Right leg cellulitis with wound infection - likely from worsening edema Right lateral foot wound infection PsAG and diphtheroid infection Leg lymphedema Morbid Obesity DM2 Right foot lateral plantar aspect nonhealing wound: Concern of recurrent infection ? PLAN: Check wound cultures today Continue oral doxycycline for 1 week. Add intravenous Zosyn 3.375 g IV every 6 hours for 10 days. He is okay for a PICC line placement of that is required for home IV antibiotics. We will treat the potential which appears to be a C or E as a colonizer at this point. If the patient fails to improve in 1-2 weeks, he will need to be put on Avycaz. Prescription orders written on prison paperwork Discussed with patient in detail Modify antibiotics according to the wound cultures Follow-up in 2 week?in the wound center INTERVAL HISTORY: ROS done with pt and negative unless stated. The patient's wound cultures from last week are growing MRSA, pseudomonas aeruginosa, Providentia, Proteus. Despite the doxycycline there has not been much improvement. The patient continues to take doxycycline however the wound continues to have an order to it although less purulence at this time. MEDICATIONS: doxycycline monohydrate (MONODOX) 100 mg capsule Take 1 capsule by mouth twice daily for 7 days. doxycycline hyclate (VIBRAMYCIN) 100 mg capsule Take by mouth. doxycycline hyclate (VIBRAMYCIN) 100 mg capsule Take 100 mg by mouth. ARIPiprazole (ABILIFY) 10 mg tablet Take 10 mg by mouth once daily. acetaminophen 325 mg cap Take 2 capsules by mouth every 6 hours. Acidophilus-Pectin, [place] 25 million cell -100 mg tab Take 1 tablet by mouth twice daily. aspirin, enteric coated (ASPIRIN, ENTERIC COATED) 81 mg EC tablet Take 81 mg by mouth once daily. Bisacodyl (DULCOLAX) 5 mg tab Take 1 tablet by mouth as needed. bisacodyl (DULCOLAX, BISACODYL,) 10 mg supp 10 mg by RECTAL route every 24 hours. FLUoxetine (PROZAC) 10 mg capsule Take 10 mg by mouth once daily. FLUoxetine (PROZAC) 20 mg capsule Take 20 mg by mouth once daily. heparin sodium,porcine (HEPARIN LOCK FLUSH INTRAVEN.) Inject 5 mL intravenously every 8 hours. insulin lispro (HUMALOG LEONARDO KWIKPEN U-100) 100 unit/mL inph Inject 100 Units subcutaneously three times daily before meals. insulin regular hum U-500 conc (HUMULIN R U-500, CONC, KWIKPEN) 500 unit/mL (3 mL) inpn Inject 32 Units subcutaneously daily with breakfast. insulin regular hum U-500 conc (HUMULIN R U-500, CONC, KWIKPEN) 500 unit/mL (3 mL) inpn Inject 38 Units subcutaneously daily with breakfast. HYDROcodone-acetaminophe n (NORCO) 5-325 mg per tablet Take 1 tablet by mouth every 4 hours. furosemide (LASIX) 80 mg tablet Take 80 mg by mouth once daily. insulin detemir U-100 (LEVEMIR U-100 INSULIN) 100 unit/mL injection Inject 86 Units subcutaneously daily at bedtime. lisinopril (ZESTRIL, PRINIVIL) 40 mg tablet Take 40 mg by mouth once daily. metFORMIN (GLUCOPHAGE) 1,000 mg tablet Take 1,000 mg by mouth twice daily with meals. magnesium hydroxide (MILK OF MAGNESIA ORAL) Take 30 mL by mouth every 24 hours. simvastatin (ZOCOR) 20 mg tablet Take 20 mg by mouth daily at bedtime. PHYSICAL EXAM: Vital signs: stable, afeb General: alert, oriented, NAD Lungs: bilaterally clear to auscultation Heart: regular rate and rhythm Abdomen: soft, non tender, non distended, BS+ Extremities: no swollen joints Skin: no rash Right lateral foot wound and right lateral leg wound with pale granulation tissue mild amount of slough and no surrounding cellulitis. Odorous drainage present with some purulence Lab data: reviewed No results found for: WBC, HB, INR, NA, K, CO2, BUN, CREAT, AST, ALT, TBILI, ALKPHOS, WSR, LACT, VANCORA Microbiology data: reviewed Imaging data: reviewed Jayson Hawthorne MD [phone] 01/03/2019 2:22 PM Normal [facility] Wound Culture/Stainon 2018 Wound Culture/Stain Sp. Request/Comment: - Eswab Smear Result - Many Gram positive cocci in pairs --> ABNORMAL ALERT Many --> ABNORMAL ALERT Gram negative bacilli --> ABNORMAL ALERT Rare --> ABNORMAL ALERT Yeast --> ABNORMAL ALERT Rare Polymorphonuclear leukocytes Culture Result - Many Proteus mirabilis --> ABNORMAL ALERT Moderate --> ABNORMAL ALERT Providencia stuartii --> ABNORMAL ALERT Moderate skin dorinda ORGANISM: Proteus mirabilis METHOD: Minimum inhibitory concentration(Vitek) Antibiotic Interp TULIO Status Ampicillin RESISTANT >=32 F Gentamicin SUSCEPTIBLE <=1 F Trimeth sulfameth RESISTANT >=320 F Ciprofloxacin RESISTANT >=4 F Cefepime SUSCEPTIBLE <=1 F Piperacillin/Tazobac SUSCEPTIBLE <=4 F Ampicillin Sulbact SUSCEPTIBLE 4 F Ceftriaxone SUSCEPTIBLE <=1 F Meropenem SUSCEPTIBLE <=0.25 F Ertapenem SUSCEPTIBLE <=0.5 F ORGANISM: Providencia stuartii METHOD: Minimum inhibitory concentration(Vitek) Antibiotic Interp TULIO Status Ampicillin RESISTANT >=32 F Gentamicin RESISTANT F Trimeth sulfameth RESISTANT >=320 F Cefazolin RESISTANT >=64 F Ciprofloxacin RESISTANT >=4 F Amikacin SUSCEPTIBLE <=2 F Tobramycin RESISTANT F Cefepime SUSCEPTIBLE <=1 F Piperacillin/Tazobac SUSCEPTIBLE <=4 F Ceftriaxone SUSCEPTIBLE <=1 F Meropenem SUSCEPTIBLE <=0.25 F Ertapenem SUSCEPTIBLE <=0.5 F Critically abnormal [facility] Comment on above: Performed By: #### W CUL ####[id number] [place], [place] [phone] Wound Culture/Stain Sp. Request/Comment: - Eswab Smear Result - Many Gram negative bacilli --> ABNORMAL ALERT Few --> ABNORMAL ALERT Gram positive cocci in pairs --> ABNORMAL ALERT Rare --> ABNORMAL ALERT Gram positive diphtheroid-like bacilli --> ABNORMAL ALERT No Polymorphonuclear Leukocytes Rare Epithelial cells Culture Result - Many Proteus mirabilis --> ABNORMAL ALERT Refer to specimen collected on --> ABNORMAL ALERT 01/03/2019 AT 1500 ([id number]) --> ABNORMAL ALERT Many --> ABNORMAL ALERT Providencia stuartii --> ABNORMAL ALERT Refer to specimen collected on --> ABNORMAL ALERT 01/03/2019 AT 1500 ([id number]) --> ABNORMAL ALERT Many --> ABNORMAL ALERT Enterococcus faecalis --> ABNORMAL ALERT Cephalosporins, clindamycin, and TMP-SMX are not effective for the treatment of enterococcal infections. --> ABNORMAL ALERT Rare skin dorinda ORGANISM: Enterococcus faecalis METHOD: Minimum inhibitory concentration(Vitek) Antibiotic Interp TULIO Status Ampicillin SUSCEPTIBLE <=2 F Vancomycin SUSCEPTIBLE 1 F Critically abnormal [facility] Comment on above: Performed By: #### W CUL ####[id number] [place], [place] [phone] CNOVon 12-27-2018 CNOV Office Visit (PLWDMR ) -------- WILL JACINTO ([id number]) 1965 M Date Time Provider Department 12/27/18 1:50 PM INFD WOUND CARE [facility]MR During your visit today, we recorded the following information about you: Temperature Pulse Respiration Blood pressure 98.6 degrees 79/minute 18/minute 141/82 Jayson Hawthorne MD, MD 12/27/2018 4:03 PM Signed INFECTIOUS DISEASE WOUND CENTER NOTE Patient Name: Will Jacinto Date: 12/27/2018 ASSESSMENT: Right leg cellulitis - likely from worsening edema PsAG and diphtheroid infection Leg lymphedema Morbid Obesity DM2 Right foot lateral plantar aspect nonhealing wound: Concern of recurrent infection ? PLAN: Follow up w Dr Luu Check wound cultures today Start oral doxycycline for one week Discussed with patient in detail Modify antibiotics according to the wound cultures Follow-up in 1 week in the wound center INTERVAL HISTORY: ROS done with pt and negative unless stated. The patient returns back after substantial period of time today. He denies any fevers, chills, nausea, vomiting, diarrhea. He has not been on any antibiotics. He is been seeing Dr. luu who is been doing debridement periodically. He was admitted to [facility] both in September as well as October 2018. He is not currently on any antibiotics. MEDICATIONS: ARIPiprazole (ABILIFY) 10 mg tablet Take 10 mg by mouth once daily. acetaminophen 325 mg cap Take 2 capsules by mouth every 6 hours. Acidophilus-Pectin, [place] 25 million cell -100 mg tab Take 1 tablet by mouth twice daily. aspirin, enteric coated (ASPIRIN, ENTERIC COATED) 81 mg EC tablet Take 81 mg by mouth once daily. Bisacodyl (DULCOLAX) 5 mg tab Take 1 tablet by mouth as needed. bisacodyl (DULCOLAX, BISACODYL,) 10 mg supp 10 mg by RECTAL route every 24 hours. FLUoxetine (PROZAC) 20 mg capsule Take 20 mg by mouth once daily. insulin lispro (HUMALOG LEONARDO KWIKPEN U-100) 100 unit/mL inph Inject 100 Units subcutaneously three times daily before meals. insulin regular hum U-500 conc (HUMULIN R U-500, CONC, KWIKPEN) 500 unit/mL (3 mL) inpn Inject 32 Units subcutaneously daily with breakfast. insulin regular hum U-500 conc (HUMULIN R U-500, CONC, KWIKPEN) 500 unit/mL (3 mL) inpn Inject 38 Units subcutaneously daily with breakfast. HYDROcodone-acetaminophe n (NORCO) 5-325 mg per tablet Take 1 tablet by mouth every 4 hours. furosemide (LASIX) 80 mg tablet Take 80 mg by mouth once daily. lisinopril (ZESTRIL, PRINIVIL) 40 mg tablet Take 40 mg by mouth once daily. metFORMIN (GLUCOPHAGE) 1,000 mg tablet Take 1,000 mg by mouth twice daily with meals. magnesium hydroxide (MILK OF MAGNESIA ORAL) Take 30 mL by mouth every 24 hours. simvastatin (ZOCOR) 20 mg tablet Take 20 mg by mouth daily at bedtime. doxycycline hyclate (VIBRAMYCIN) 100 mg capsule Take by mouth. doxycycline hyclate (VIBRAMYCIN) 100 mg capsule Take 100 mg by mouth. FLUoxetine (PROZAC) 10 mg capsule Take 10 mg by mouth once daily. heparin sodium,porcine (HEPARIN LOCK FLUSH INTRAVEN.) Inject 5 mL intravenously every 8 hours. insulin detemir U-100 (LEVEMIR U-100 INSULIN) 100 unit/mL injection Inject 86 Units subcutaneously daily at bedtime. PHYSICAL EXAM: Vital signs: stable, afeb General: alert, oriented, NAD Lungs: bilaterally clear to auscultation Heart: regular rate and rhythm Abdomen: soft, non tender, non distended, BS+ Extremities: no swollen joints Skin: no rash Right lateral leg wound seems to have increased in size from the 3.5 and to 3.5 cm in dimensions noted in the past. Although the base of the wound does not look bad it has a significant odor to it and the wound dressing had brownish drainage from it as well. The wound appears to be bleeding well right now. Chronic changes of lymphedema and venous stasis dermatitis are present in the legs Lab data: reviewed Microbiology data: reviewed Imaging data: reviewed Jayson Hawthorne MD [phone] 12/27/2018 2:07 PM Debbie Casey RN, RN 12/27/2018 2:18 PM Signed Nursing Note See provider note for wound description and measurements Dressing removed and wound washed with saline solution 0.9% In the presence and direction of the provider wound care as written below: Wounds were not measured during visit. 1. Right lateral lower leg: L: 3.6 cm x W: 3.5 cm x D: 0.2 cm Wound cleansed with saline solution x 10 cc. Pat Dry. Antibiotic ointment applied to the wound bed. Site was covered with a layer of dry max and abd pad. Site was secured with kerlix. Size G Tubigrip applied from behind the toes to 1' below the knee. MARY WRAP/Tubi-sign designer: Foot is warm and pink before and after application. It was demonstrated to the patient how to check for adequate circulation. Patient voices understanding. If circulation becomes compromised by a change in color, increased pain, numbness or tingling to the area, the patient knows to remove the compression and elevate the leg above the heart. PLAN: Return to the wound center to see ID in 1 week Rx: Doxycycline EDUCATION: The patient/family was instructed how to wash the wound(s) with dial soap, rinsing with water, AND patting dry. Visual demonstration on how to apply the dressing. Signs AND symptoms of infection were reviewed: Increased redness, swelling, pain, green, yellow drainage, fever or chills all would need to be evaluated by a Physician. Patient received typed homegoing wound care instructions and has expressed intent to comply. Debbie Casey, RN, RN 12/27/2018 2:18 PM Addendum WOUND CARE INSTRUCTIONS Will Gilliam Ophelia Wound location: Right lateral foot and right lateral lower leg 1. Wash your hands with soap and water before and after wound care. 2. Gather all supplies needed. 3. Wash wound with Dial soap and water. Pat dry. 4. Apply gentamicin ointment to the wound base. 5. Cover with drymax and abd pads 6. Secure dressing with kerlix wrap 7. Change your dressing twice daily Apply a size G tubi-sign designer from behind the toes to 1" below the knee Compression: ? Cast cover may be purchased at your local drug store to wear to allow you to shower ? Remove compression wraps if they become uncomfortable or cause change in color or sensation to the extremity. Rewrap as instructed. To give your wound the best chance to heal: - Eat three balanced meals daily focusing on the protein - Control swelling by elevating the extremity above your heart - exercise the extremity - Control your blood sugar. Keep blood sugar less than 200 - Complete your wound care instructions - Vitamin C 500 mg twice daily - Multiple Vitamin Daily - Drink a protein shake daily - glucerna or premiere clear Report any of the following changes to the Wound Center at [phone] or go to the Emergency Department: ? Fever or chills ? Increased drainage ? Green or yellow drainage ? Foul odor ? Increased pain ? Hardness around the wound ? Redness, warmth or swelling of the surrounding tissue ? Color change to the wound PLAN: Return to the wound center to see ID in 1 week Rx: Doxycycline Dr. Marine MD/thiago Casey, RN, RN 12/27/2018 4:03 PM Signed Call placed to to nursing facility by [facility] to request a wound culture that was missed in the wound center. They agreed to collect and then send results to the wound center. Referring Provider: KYLAH LUU [[id number]] Allergies As of Date: 12/27/2018 (No Known Allergies) Date Reviewed: 12/27/2018 Reviewed by: Priscila (Zina) ZINA Vazquez - Fully Assessed Reason for Visit: Wound Check [133] Cmt: right leg Primary Visit Diagnosis:Chronic osteomyelitis with draining sinus, right ankle and foot (HCC) [M86.471] Other Visit Diagnoses:Lymphedema [I89.0] Pseudomonas aeruginosa infection [A49.8] Type 2 diabetes mellitus with diabetic peripheral angiopathy without gangrene, unspecified whether snf insulin use (HCC) [E11.51] Order(s):WOUND CULTURE AND GRAM STAIN [SQWCUL] Order #: [id number] doxycycline monohydrate (MONODOX) 100 mg capsuleTake 1 capsule by mouth twice daily for 7 days.Disp: 14 capsuleRfl: 0 Prescriptions as of 12/27/2018 Sig: ARIPIPRAZOLE 10 MG TABLET Take 10 mg by mouth once rhoda* ACETAMINOPHEN 325 MG CAPSULE Take 2 capsules by mouth ever* ACIDOPHILUS 25 MILLION CELL-P* Take 1 tablet by mouth twice * ASPIRIN 81 MG TABLET,DELAYED * Take 81 mg by mouth once rhoda* BISACODYL 5 MG TABLET Take 1 tablet by mouth as nee* BISACODYL 10 MG RECTAL SUPPOS* 10 mg by RECTAL route every 2* FLUOXETINE 20 MG CAPSULE Take 20 mg by mouth once rhoda* INSULIN LISPRO (U-100) 100 UN* Inject 100 Units subcutaneous* INSULIN REGULAR HUMAN U-500 "* Inject 32 Units subcutaneousl* INSULIN REGULAR HUMAN U-500 "* Inject 38 Units subcutaneousl* HYDROCODONE 5 MG-ACETAMINOPHE* Take 1 tablet by mouth every * FUROSEMIDE 80 MG TABLET Take 80 mg by mouth once rhoda* LISINOPRIL 40 MG TABLET Take 40 mg by mouth once rhoda* METFORMIN 1,000 MG TABLET Take 1,000 mg by mouth twice * MILK OF MAGNESIA ORAL Take 30 mL by mouth every 24 * SIMVASTATIN 20 MG TABLET Take 20 mg by mouth daily at * DOXYCYCLINE MONOHYDRATE 100 M* Take 1 capsule by mouth twice* DOXYCYCLINE HYCLATE 100 MG CA* Take by mouth. DOXYCYCLINE HYCLATE 100 MG CA* Take 100 mg by mouth. FLUOXETINE 10 MG CAPSULE Take 10 mg by mouth once rhoda* HEPARIN LOCK FLUSH INTRAVEN. Inject 5 mL intravenously declan* INSULIN DETEMIR (U-100) 100 U* Inject 86 Units subcutaneousl* Problem List As Of Date: 12/27/2018 (None) Other instructions from your clinician: WOUND CARE INSTRUCTIONS Will Gilliam Ophelia Wound location: Right lateral foot and right lateral lower leg 1. Wash your hands with soap and water before and after wound care. 2. Gather all supplies needed. 3. Wash wound with Dial soap and water. Pat dry. 4. Apply gentamicin ointment to the wound base. 5. Cover with drymax and abd pads 6. Secure dressing with kerlix wrap 7. Change your dressing twice daily Apply a size G tubi-sign designer from behind the toes to 1" below the knee Compression: ? Cast cover may be purchased at your local drug store to wear to allow you to shower ? Remove compression wraps if they become uncomfortable or cause change in color or sensation to the extremity. Rewrap as instructed. To give your wound the best chance to heal: - Eat three balanced meals daily focusing on the protein - Control swelling by elevating the extremity above your heart - exercise the extremity - Control your blood sugar. Keep blood sugar less than 200 - Complete your wound care instructions - Vitamin C 500 mg twice daily - Multiple Vitamin Daily - Drink a protein shake daily - glucerna or premiere clear Report any of the following changes to the Wound Center at [phone] or go to the Emergency Department: ? Fever or chills ? Increased drainage ? Green or yellow drainage ? Foul odor ? Increased pain ? Hardness around the wound ? Redness, warmth or swelling of the surrounding tissue ? Color change to the wound PLAN: Return to the wound center to see ID in 1 week Rx: Doxycycline Dr. Marine MD/mjl Visit Notes: >> Debbie (Rn) GLYNN Casey chris Dec 27, 2018 2:09 PM Status: Signed Nursing Note See provider note for wound description and measurements Dressing removed and wound washed with saline solution 0.9% In the presence and direction of the provider wound care as written below: Wounds were not measured during visit. 1. Right lateral lower leg: L: 3.6 cm x W: 3.5 cm x D: 0.2 cm Wound cleansed with saline solution x 10 cc. Pat Dry. Antibiotic ointment applied to the wound bed. Site was covered with a layer of dry max and abd pad. Site was secured with kerlix. Size G Tubigrip applied from behind the toes to 1' below the knee. MARY WRAP/Tubi-sign designer: Foot is warm and pink before and after application. It was demonstrated to the patient how to check for adequate circulation. Patient voices understanding. If circulation becomes compromised by a change in color, increased pain, numbness or tingling to the area, the patient knows to remove the compression and elevate the leg above the heart. PLAN: Return to the wound center to see ID in 1 week Rx: Doxycycline EDUCATION: The patient/family was instructed how to wash the wound(s) with dial soap, rinsing with water, AND patting dry. Visual demonstration on how to apply the dressing. Signs AND symptoms of infection were reviewed: Increased redness, swelling, pain, green, yellow drainage, fever or chills all would need to be evaluated by a Physician. Patient received typed homegoing wound care instructions and has expressed intent to comply. >> Debbie (Rosemary Casey RN chris Dec 27, 2018 3:59 PM Status: Signed Call placed to to nursing facility by [facility] to request a wound culture that was missed in the wound center. They agreed to collect and then send results to the wound center. Prescriptions ordered this encounter Disp Refills Start End DOXYCYCLINE MONOHYDRATE 100 MG CAPSU* 14 c* 0 12/27/2018 01/03/2019 Class: Print RX Route: ORAL Sig: Take 1 capsule by mouth twice daily for 7 days. Encounter Status:Closed by DEBBIE CASEY on 12/27/18 [facility] PROGRESSon 12-27-2018 Protein mass conc HNO ID: [id number] Author: Jayson Hawthorne MD Service: (none) Author Type: Physician Type: Progress Notes Filed: 12/27/2018 4:03 PM Note Text: INFECTIOUS DISEASE WOUND CENTER NOTE Patient Name: Will Jacinto Date: 12/27/2018 ASSESSMENT: Right leg cellulitis - likely from worsening edema PsAG and diphtheroid infection Leg lymphedema Morbid Obesity DM2 Right foot lateral plantar aspect nonhealing wound: Concern of recurrent infection ? PLAN: Follow up w Dr Luu Check wound cultures today Start oral doxycycline for one week Discussed with patient in detail Modify antibiotics according to the wound cultures Follow-up in 1 week in the wound center INTERVAL HISTORY: ROS done with pt and negative unless stated. The patient returns back after substantial period of time today. He denies any fevers, chills, nausea, vomiting, diarrhea. He has not been on any antibiotics. He is been seeing Dr. luu who is been doing debridement periodically. He was admitted to [facility] both in September as well as October 2018. He is not currently on any antibiotics. MEDICATIONS: ARIPiprazole (ABILIFY) 10 mg tablet Take 10 mg by mouth once daily. acetaminophen 325 mg cap Take 2 capsules by mouth every 6 hours. Acidophilus-Pectin, [place] 25 million cell -100 mg tab Take 1 tablet by mouth twice daily. aspirin, enteric coated (ASPIRIN, ENTERIC COATED) 81 mg EC tablet Take 81 mg by mouth once daily. Bisacodyl (DULCOLAX) 5 mg tab Take 1 tablet by mouth as needed. bisacodyl (DULCOLAX, BISACODYL,) 10 mg supp 10 mg by RECTAL route every 24 hours. FLUoxetine (PROZAC) 20 mg capsule Take 20 mg by mouth once daily. insulin lispro (HUMALOG LEONARDO KWIKPEN U-100) 100 unit/mL inph Inject 100 Units subcutaneously three times daily before meals. insulin regular hum U-500 conc (HUMULIN R U-500, CONC, KWIKPEN) 500 unit/mL (3 mL) inpn Inject 32 Units subcutaneously daily with breakfast. insulin regular hum U-500 conc (HUMULIN R U-500, CONC, KWIKPEN) 500 unit/mL (3 mL) inpn Inject 38 Units subcutaneously daily with breakfast. HYDROcodone-acetaminophe n (NORCO) 5-325 mg per tablet Take 1 tablet by mouth every 4 hours. furosemide (LASIX) 80 mg tablet Take 80 mg by mouth once daily. lisinopril (ZESTRIL, PRINIVIL) 40 mg tablet Take 40 mg by mouth once daily. metFORMIN (GLUCOPHAGE) 1,000 mg tablet Take 1,000 mg by mouth twice daily with meals. magnesium hydroxide (MILK OF MAGNESIA ORAL) Take 30 mL by mouth every 24 hours. simvastatin (ZOCOR) 20 mg tablet Take 20 mg by mouth daily at bedtime. doxycycline hyclate (VIBRAMYCIN) 100 mg capsule Take by mouth. doxycycline hyclate (VIBRAMYCIN) 100 mg capsule Take 100 mg by mouth. FLUoxetine (PROZAC) 10 mg capsule Take 10 mg by mouth once daily. heparin sodium,porcine (HEPARIN LOCK FLUSH INTRAVEN.) Inject 5 mL intravenously every 8 hours. insulin detemir U-100 (LEVEMIR U-100 INSULIN) 100 unit/mL injection Inject 86 Units subcutaneously daily at bedtime. PHYSICAL EXAM: Vital signs: stable, afeb General: alert, oriented, NAD Lungs: bilaterally clear to auscultation Heart: regular rate and rhythm Abdomen: soft, non tender, non distended, BS+ Extremities: no swollen joints Skin: no rash Right lateral leg wound seems to have increased in size from the 3.5 and to 3.5 cm in dimensions noted in the past. Although the base of the wound does not look bad it has a significant odor to it and the wound dressing had brownish drainage from it as well. The wound appears to be bleeding well right now. Chronic changes of lymphedema and venous stasis dermatitis are present in the legs Lab data: reviewed Microbiology data: reviewed Imaging data: reviewed Jayson Hawthorne MD [phone] 12/27/2018 2:07 PM [facility] 07-12-2018 [facility] Office Visit ([facility] ) -------- WILL JACINTO ([id number]) 1965 M Date Time Provider Department 07/12/18 1:20 PM [facility] During your visit today, we recorded the following information about you: Temperature Pulse Respiration Blood pressure 98.4 degrees 97/minute 17/minute 137/69 Jayson Hawthorne MD, 07/15/2018 10:32 AM Signed INFECTIOUS DISEASE WOUND CENTER NOTE Patient Name: Will Jacinto Date: 07/12/2018 ASSESSMENT: Right leg cellulitis - likely from worsening edema PsAG and diphtheroid infection Leg lymphedema Morbid Obesity DM2 Right foot lateral plantar aspect nonhealing wound: Concern of recurrent infection ? PLAN: Follow up w Dr Luu tomorrow May need MRI of the right foot versus hospitalization and IV antibiotic therapy restarted Discussed with patient in detail Continue doxycycline x 1 week more Follow-up in 2-3 weeks in the wound center INTERVAL HISTORY: ROS done with pt and negative unless stated. The patient underwent wound debridement and has been feeling better as far as the lateral foot wound goes. The right lateral aspect of the leg showing a bleeding ulceration. It appears that the patient may have bumped that area. The wound base on the lower leg appears to be clean with good granulation tissue and no sign of infection. MEDICATIONS: doxycycline hyclate (VIBRAMYCIN) 100 mg capsule Take by mouth. ARIPiprazole (ABILIFY) 10 mg tablet Take 10 mg by mouth once daily. acetaminophen 325 mg cap Take 2 capsules by mouth every 6 hours. Acidophilus-Pectin, [place] 25 million cell -100 mg tab Take 1 tablet by mouth twice daily. aspirin, enteric coated (ASPIRIN, ENTERIC COATED) 81 mg EC tablet Take 81 mg by mouth once daily. Bisacodyl (DULCOLAX) 5 mg tab Take 1 tablet by mouth as needed. bisacodyl (DULCOLAX, BISACODYL,) 10 mg supp 10 mg by RECTAL route every 24 hours. FLUoxetine (PROZAC) 10 mg capsule Take 10 mg by mouth once daily. FLUoxetine (PROZAC) 20 mg capsule Take 20 mg by mouth once daily. insulin lispro (HUMALOG LEONARDO KWIKPEN U-100) 100 unit/mL inph Inject 100 Units subcutaneously three times daily before meals. insulin regular hum U-500 conc (HUMULIN R U-500, CONC, KWIKPEN) 500 unit/mL (3 mL) inpn Inject 32 Units subcutaneously daily with breakfast. insulin regular hum U-500 conc (HUMULIN R U-500, CONC, KWIKPEN) 500 unit/mL (3 mL) inpn Inject 38 Units subcutaneously daily with breakfast. HYDROcodone-acetaminophe n (NORCO) 5-325 mg per tablet Take 1 tablet by mouth every 4 hours. furosemide (LASIX) 80 mg tablet Take 80 mg by mouth once daily. insulin detemir U-100 (LEVEMIR U-100 INSULIN) 100 unit/mL injection Inject 86 Units subcutaneously daily at bedtime. lisinopril (ZESTRIL, PRINIVIL) 40 mg tablet Take 40 mg by mouth once daily. metFORMIN (GLUCOPHAGE) 1,000 mg tablet Take 1,000 mg by mouth twice daily with meals. magnesium hydroxide (MILK OF MAGNESIA ORAL) Take 30 mL by mouth every 24 hours. simvastatin (ZOCOR) 20 mg tablet Take 20 mg by mouth daily at bedtime. doxycycline hyclate (VIBRAMYCIN) 100 mg capsule Take 100 mg by mouth. heparin sodium,porcine (HEPARIN LOCK FLUSH INTRAVEN.) Inject 5 mL intravenously every 8 hours. PHYSICAL EXAM: Vital signs: stable, afeb General: alert, oriented, NAD Lungs: bilaterally clear to auscultation Heart: regular rate and rhythm Abdomen: soft, non tender, non distended, BS+ Extremities: no swollen joints Skin: no rash Right lateral foot wound with the smaller amount of slough and appears to be better Right lower leg lateral aspect bleeding wound with clean granulation tissue at the base and a bleeding margin no cellulitis or sign of infection Lab data: reviewed No results found for: WBC, HB, INR, NA, K, CO2, BUN, CREAT, AST, ALT, TBILI, ALKPHOS, WSR, LACT, VANCORA Microbiology data: reviewed Imaging data: reviewed Jayson Hawthorne MD [phone] 07/12/2018 2:03 PM Priscila Vazquez MA, ZINA 07/12/2018 3:03 PM Addendum Nursing Note See provider note for wound description and measurements Dressing removed and wound washed with saline solution 0.9% In the presence and direction of the provider wound care as written below: Wounds were not measured during visit. Right Lower Leg x2: Wounds cleansed with 0.125% Dakin's Solution. Pat Dry. Calcium Alginate AG applied to the wound bed. Covered with dry max, ABD pad and kerlix. Size G Tubigrip applied. MARY WRAP/Tubi-sign designer: Foot is warm and pink before and after application. It was demonstrated to the patient how to check for adequate circulation. Patient voices understanding. If circulation becomes compromised by a change in color, increased pain, numbness or tingling to the area, the patient knows to remove the compression and elevate the leg above the heart. PLAN: Return to the wound center in [address] Luu EDUCATION: The patient/family was instructed how to wash the wound(s) with dial soap, rinsing with water, AND patting dry. Visual demonstration on how to apply the dressing. Signs AND symptoms of infection were reviewed: Increased redness, swelling, pain, green, yellow drainage, fever or chills all would need to be evaluated by a Physician. Patient received typed homegoing wound care instructions and has expressed intent to comply. Priscila Vazquez MA, ZINA 07/12/2018 2:18 PM Signed WOUND CARE INSTRUCTIONS Will Jacinto Wound location: Right lateral foot and right lateral lower leg Continue current wound care as previously written Profore: ? Cast cover may be purchased at your local drug store to wear to allow you to shower ? Remove compression wraps if they become uncomfortable or cause change in color or sensation to the extremity. Rewrap as instructed. To give your wound the best chance to heal: - Eat three balanced meals daily focusing on the protein - Control swelling by elevating the extremity above your heart - exercise the extremity - Control your blood sugar. Keep blood sugar less than 200 - Complete your wound care instructions - Vitamin C 500 mg twice daily - Multiple Vitamin Daily - Drink a protein shake daily Report any of the following changes to the Wound Center at [phone] or go to the Emergency Department: ? Fever or chills ? Increased drainage ? Green or yellow drainage ? Foul odor ? Increased pain ? Hardness around the wound ? Redness, warmth or swelling of the surrounding tissue ? Color change to the wound PLAN: Return to the wound center in [address] Glenn Hawthorne MD/ Referring Provider: SELF [[id number]] Allergies As of Date: 07/12/2018 (No Known Allergies) Date Reviewed: 07/12/2018 Reviewed by: Priscila Cantu) ZINA Vazquez - Fully Assessed Reason for Visit: Wound Check [133] Cmt: right lower leg Primary Visit Diagnosis:Chronic osteomyelitis with draining sinus, right ankle and foot (HCC) [M86.471] Other Visit Diagnoses:Lymphedema [I89.0] Pseudomonas aeruginosa infection [A49.8] Type 2 diabetes mellitus with diabetic peripheral angiopathy without gangrene, unspecified whether snf insulin use ([facility]) [E11.51] Prescriptions as of 07/12/2018 Sig: DOXYCYCLINE HYCLATE 100 MG CA* Take by mouth. ARIPIPRAZOLE 10 MG TABLET Take 10 mg by mouth once rhoda* ACETAMINOPHEN 325 MG CAPSULE Take 2 capsules by mouth ever* ACIDOPHILUS 25 MILLION CELL-P* Take 1 tablet by mouth twice * ASPIRIN 81 MG TABLET,DELAYED * Take 81 mg by mouth once rhoda* BISACODYL 5 MG TABLET Take 1 tablet by mouth as nee* BISACODYL 10 MG RECTAL SUPPOS* 10 mg by RECTAL route every 2* FLUOXETINE 10 MG CAPSULE Take 10 mg by mouth once rhoda* FLUOXETINE 20 MG CAPSULE Take 20 mg by mouth once rhoda* INSULIN LISPRO (U-100) 100 UN* Inject 100 Units subcutaneous* INSULIN REGULAR HUMAN U-500 "* Inject 32 Units subcutaneousl* INSULIN REGULAR HUMAN U-500 "* Inject 38 Units subcutaneousl* HYDROCODONE 5 MG-ACETAMINOPHE* Take 1 tablet by mouth every * FUROSEMIDE 80 MG TABLET Take 80 mg by mouth once rhoda* INSULIN DETEMIR (U-100) 100 U* Inject 86 Units subcutaneousl* LISINOPRIL 40 MG TABLET Take 40 mg by mouth once rhoda* METFORMIN 1,000 MG TABLET Take 1,000 mg by mouth twice * MILK OF MAGNESIA ORAL Take 30 mL by mouth every 24 * SIMVASTATIN 20 MG TABLET Take 20 mg by mouth daily at * DOXYCYCLINE HYCLATE 100 MG CA* Take 100 mg by mouth. HEPARIN LOCK FLUSH INTRAVEN. Inject 5 mL intravenously declan* Problem List As Of Date: 07/12/2018 (None) Other instructions from your clinician: WOUND CARE INSTRUCTIONS Will Jacinto Wound location: Right lateral foot and right lateral lower leg Continue current wound care as previously written Profore: ? Cast cover may be purchased at your local drug store to wear to allow you to shower ? Remove compression wraps if they become uncomfortable or cause change in color or sensation to the extremity. Rewrap as instructed. To give your wound the best chance to heal: - Eat three balanced meals daily focusing on the protein - Control swelling by elevating the extremity above your heart - exercise the extremity - Control your blood sugar. Keep blood sugar less than 200 - Complete your wound care instructions - Vitamin C 500 mg twice daily - Multiple Vitamin Daily - Drink a protein shake daily Report any of the following changes to the Wound Center at [phone] or go to the Emergency Department: ? Fever or chills ? Increased drainage ? Green or yellow drainage ? Foul odor ? Increased pain ? Hardness around the wound ? Redness, warmth or swelling of the surrounding tissue ? Color change to the wound PLAN: Return to the wound center in [address] Glenn Hawthorne MD/[facility] Visit Notes: >> Priscila (Zina) ZINA Vazquez Jul 12, 2018 2:11 PM Status: Addendum Nursing Note See provider note for wound description and measurements Dressing removed and wound washed with saline solution 0.9% In the presence and direction of the provider wound care as written below: Wounds were not measured during visit. Right Lower Leg x2: Wounds cleansed with 0.125% Dakin's Solution. Pat Dry. Calcium Alginate AG applied to the wound bed. Covered with dry max, ABD pad and kerlix. Size G Tubigrip applied. MARY WRAP/Tubi-sign designer: Foot is warm and pink before and after application. It was demonstrated to the patient how to check for adequate circulation. Patient voices understanding. If circulation becomes compromised by a change in color, increased pain, numbness or tingling to the area, the patient knows to remove the compression and elevate the leg above the heart. PLAN: Return to the wound center in [address] Luu EDUCATION: The patient/family was instructed how to wash the wound(s) with dial soap, rinsing with water, AND patting dry. Visual demonstration on how to apply the dressing. Signs AND symptoms of infection were reviewed: Increased redness, swelling, pain, green, yellow drainage, fever or chills all would need to be evaluated by a Physician. Patient received typed homegoing wound care instructions and has expressed intent to comply. Encounter Status:Closed by JAYSON HAWTHORNE MD on 07/15/18 [facility] PROGRESSon 07-12-2018 Protein mass conc HNO ID: [id number] Author: Jayson Hawthorne MD Service: (none) Author Type: Physician Type: Progress Notes Filed: 07/15/2018 10:32 AM Note Text: INFECTIOUS DISEASE WOUND CENTER NOTE Patient Name: Will Jacinto Date: 07/12/2018 ASSESSMENT: Right leg cellulitis - likely from worsening edema PsAG and diphtheroid infection Leg lymphedema Morbid Obesity DM2 Right foot lateral plantar aspect nonhealing wound: Concern of recurrent infection ? PLAN: Follow up w Dr Luu tomorrow May need MRI of the right foot versus hospitalization and IV antibiotic therapy restarted Discussed with patient in detail Continue doxycycline x 1 week more Follow-up in 2-3 weeks in the wound center INTERVAL HISTORY: ROS done with pt and negative unless stated. The patient underwent wound debridement and has been feeling better as far as the lateral foot wound goes. The right lateral aspect of the leg showing a bleeding ulceration. It appears that the patient may have bumped that area. The wound base on the lower leg appears to be clean with good granulation tissue and no sign of infection. MEDICATIONS: doxycycline hyclate (VIBRAMYCIN) 100 mg capsule Take by mouth. ARIPiprazole (ABILIFY) 10 mg tablet Take 10 mg by mouth once daily. acetaminophen 325 mg cap Take 2 capsules by mouth every 6 hours. Acidophilus-Pectin, [place] 25 million cell -100 mg tab Take 1 tablet by mouth twice daily. aspirin, enteric coated (ASPIRIN, ENTERIC COATED) 81 mg EC tablet Take 81 mg by mouth once daily. Bisacodyl (DULCOLAX) 5 mg tab Take 1 tablet by mouth as needed. bisacodyl (DULCOLAX, BISACODYL,) 10 mg supp 10 mg by RECTAL route every 24 hours. FLUoxetine (PROZAC) 10 mg capsule Take 10 mg by mouth once daily. FLUoxetine (PROZAC) 20 mg capsule Take 20 mg by mouth once daily. insulin lispro (HUMALOG LEONARDO KWIKPEN U-100) 100 unit/mL inph Inject 100 Units subcutaneously three times daily before meals. insulin regular hum U-500 conc (HUMULIN R U-500, CONC, KWIKPEN) 500 unit/mL (3 mL) inpn Inject 32 Units subcutaneously daily with breakfast. insulin regular hum U-500 conc (HUMULIN R U-500, CONC, KWIKPEN) 500 unit/mL (3 mL) inpn Inject 38 Units subcutaneously daily with breakfast. HYDROcodone-acetaminophe n (NORCO) 5-325 mg per tablet Take 1 tablet by mouth every 4 hours. furosemide (LASIX) 80 mg tablet Take 80 mg by mouth once daily. insulin detemir U-100 (LEVEMIR U-100 INSULIN) 100 unit/mL injection Inject 86 Units subcutaneously daily at bedtime. lisinopril (ZESTRIL, PRINIVIL) 40 mg tablet Take 40 mg by mouth once daily. metFORMIN (GLUCOPHAGE) 1,000 mg tablet Take 1,000 mg by mouth twice daily with meals. magnesium hydroxide (MILK OF MAGNESIA ORAL) Take 30 mL by mouth every 24 hours. simvastatin (ZOCOR) 20 mg tablet Take 20 mg by mouth daily at bedtime. doxycycline hyclate (VIBRAMYCIN) 100 mg capsule Take 100 mg by mouth. heparin sodium,porcine (HEPARIN LOCK FLUSH INTRAVEN.) Inject 5 mL intravenously every 8 hours. PHYSICAL EXAM: Vital signs: stable, afeb General: alert, oriented, NAD Lungs: bilaterally clear to auscultation Heart: regular rate and rhythm Abdomen: soft, non tender, non distended, BS+ Extremities: no swollen joints Skin: no rash Right lateral foot wound with the smaller amount of slough and appears to be better Right lower leg lateral aspect bleeding wound with clean granulation tissue at the base and a bleeding margin no cellulitis or sign of infection Lab data: reviewed No results found for: WBC, HB, INR, NA, K, CO2, BUN, CREAT, AST, ALT, TBILI, ALKPHOS, WSR, LACT, VANCORA Microbiology data: reviewed Imaging data: reviewed Jayson Hawthorne MD [phone] 07/12/2018 2:03 PM [facility] 06-28-2018 OV Office Visit ([facility] ) -------- WILL JACINTO ([id number]) 1965 M Date Time Provider Department 06/28/18 1:20 PM [facility] During your visit today, we recorded the following information about you: Temperature Pulse Respiration Blood pressure 97.9 degrees 94/minute 20/minute 127/56 Terrie Kwan MD 06/30/2018 8:02 AM Signed INFECTIOUS DISEASE WOUND CENTER NOTE Patient Name: Will Jacinto Date: 06/28/2018 ASSESSMENT: Right leg cellulitis - likely from worsening edema PsAG and diphtheroid infection Leg lymphedema Morbid Obesity DM2 Right foot lateral plantar aspect nonhealing wound: Concern of recurrent infection PLAN: Needs more incision and drainage of right foot wound We'll discuss with podiatry - Dr Luu May need MRI of the right foot versus hospitalization and IV antibiotic therapy restarted Discussed with patient in detail Continue doxycycline for now Follow-up as needed in the wound center INTERVAL HISTORY: ROS done with pt and negative unless stated. Had developed worsening clear drainage from his right leg lateral aspect wound and was started on doxycycline by podiatry about 2 weeks ago. Also has a nonhealing wound on the right foot lateral aspect which has also drained some. No fevers chills nausea vomiting diarrhea. MEDICATIONS: doxycycline hyclate (VIBRAMYCIN) 100 mg capsule Take by mouth. doxycycline hyclate (VIBRAMYCIN) 100 mg capsule Take 100 mg by mouth. ARIPiprazole (ABILIFY) 10 mg tablet Take 10 mg by mouth once daily. acetaminophen 325 mg cap Take 2 capsules by mouth every 6 hours. Acidophilus-Pectin, [place] 25 million cell -100 mg tab Take 1 tablet by mouth twice daily. aspirin, enteric coated (ASPIRIN, ENTERIC COATED) 81 mg EC tablet Take 81 mg by mouth once daily. Bisacodyl (DULCOLAX) 5 mg tab Take 1 tablet by mouth as needed. bisacodyl (DULCOLAX, BISACODYL,) 10 mg supp 10 mg by RECTAL route every 24 hours. FLUoxetine (PROZAC) 10 mg capsule Take 10 mg by mouth once daily. FLUoxetine (PROZAC) 20 mg capsule Take 20 mg by mouth once daily. heparin sodium,porcine (HEPARIN LOCK FLUSH INTRAVEN.) Inject 5 mL intravenously every 8 hours. insulin lispro (HUMALOG LEONARDO KWIKPEN U-100) 100 unit/mL in Inject 100 Units subcutaneously three times daily before meals. insulin regular hum U-500 conc (HUMULIN R U-500, CONC, KWIKPEN) 500 unit/mL (3 mL) inpn Inject 32 Units subcutaneously daily with breakfast. insulin regular hum U-500 conc (HUMULIN R U-500, CONC, KWIKPEN) 500 unit/mL (3 mL) inpn Inject 38 Units subcutaneously daily with breakfast. HYDROcodone-acetaminophe n (NORCO) 5-325 mg per tablet Take 1 tablet by mouth every 4 hours. furosemide (LASIX) 80 mg tablet Take 80 mg by mouth once daily. insulin detemir U-100 (LEVEMIR U-100 INSULIN) 100 unit/mL injection Inject 86 Units subcutaneously daily at bedtime. lisinopril (ZESTRIL, PRINIVIL) 40 mg tablet Take 40 mg by mouth once daily. metFORMIN (GLUCOPHAGE) 1,000 mg tablet Take 1,000 mg by mouth twice daily with meals. magnesium hydroxide (MILK OF MAGNESIA ORAL) Take 30 mL by mouth every 24 hours. simvastatin (ZOCOR) 20 mg tablet Take 20 mg by mouth daily at bedtime. PHYSICAL EXAM: Vital signs: stable, afeb General: alert, oriented, NAD Lungs: bilaterally clear to auscultation Heart: regular rate and rhythm Abdomen: soft, non tender, non distended, BS+ Extremities: no swollen joints Skin: no rash Chronic right foot plantar aspect wound with some discoloration at the edges and mild odor Mild cellulitis of the right leg with 3+ edema in the right leg Lab data: reviewed No results found for: WBC, HB, INR, NA, K, CO2, BUN, CREAT, AST, ALT, TBILI, ALKPHOS, WSR, LACT, VANCORA Microbiology data: reviewed Imaging data: reviewed Terrie Kwan MD Pager: Roselia Sandoval, RN, RN 06/28/2018 2:38 PM Signed Nursing Note See provider note for wound description and measurements Dressing removed and wound washed with saline solution 0.9% In the presence and direction of the provider wound care as written below: Right lateral lower leg: L: 3.6 cm x W: 3.5 cm x D: 0.2 cm Right lateral foot: 2.6 cm x 6.8 cm x D: 0.5cm Wounds both irrigated with dakins 0.125% 20 cc each wound. Pat dry. Wounds then packed with dakins 0.125% moistened gauze. Sites covered with abd pad and kerlix wrap. Profore light applied. Profore Multiple layer Application: A 3- layer system applied to the bilateral lower extremities. A layer of cast padding, crepe bandage, light compression bandage, followed with a layer of coban and stockinet from behind the toes to 1" below the knee. Toes were warm and pink before and post application. + dorsal pedis pulse on palpation. It was demonstrated to the patient how to check for adequate circulation. If the patient exhibits a change in color to the extremity: change in temperature, increased pain, or the compression wrap becomes wet or to tight, the patient has been instructed to remove the wrap or go to the Emergency Department. Patient voices understanding with intent to comply. PLAN: Return to the wound center as needed Patient to see Dr. Luu EDUCATION: The patient/family was instructed how to wash the wound(s) with dial soap, rinsing with water, AND patting dry. Visual demonstration on how to apply the dressing. Signs AND symptoms of infection were reviewed: Increased redness, swelling, pain, green, yellow drainage, fever or chills all would need to be evaluated by a Physician. Patient received typed homegoing wound care instructions and has expressed intent to comply. Roselia Sandoval, RN, RN 06/28/2018 2:38 PM Signed WOUND CARE INSTRUCTIONS Will Jacinto Wound location: Right lateral foot and right lateral lower leg Continue current wound care as previously written Profore: ? Cast cover may be purchased at your local drug store to wear to allow you to shower ? Remove compression wraps if they become uncomfortable or cause change in color or sensation to the extremity. Rewrap as instructed. To give your wound the best chance to heal: - Eat three balanced meals daily focusing on the protein - Control swelling by elevating the extremity above your heart - exercise the extremity - Control your blood sugar. Keep blood sugar less than 200 - Complete your wound care instructions - Vitamin C 500 mg twice daily - Multiple Vitamin Daily - Drink a protein shake daily Report any of the following changes to the Wound Center at [phone] or go to the Emergency Department: ? Fever or chills ? Increased drainage ? Green or yellow drainage ? Foul odor ? Increased pain ? Hardness around the wound ? Redness, warmth or swelling of the surrounding tissue ? Color change to the wound PLAN: Return to the wound center as needed Patient to see Dr. Glenn Kwan MD/pw Referring Provider: SELF [200] Allergies As of Date: 06/28/2018 (No Known Allergies) Date Reviewed: 06/28/2018 Reviewed by: Evonne (Pcna) AMANDA Baig - Fully Assessed Reason for Visit: Wound Check [133] Primary Visit Diagnosis:Chronic osteomyelitis with draining sinus, right ankle and foot (HCC) [M86.471] Prescriptions as of 06/28/2018 Sig: DOXYCYCLINE HYCLATE 100 MG CA* Take by mouth. DOXYCYCLINE HYCLATE 100 MG CA* Take 100 mg by mouth. ARIPIPRAZOLE 10 MG TABLET Take 10 mg by mouth once rhoda* ACETAMINOPHEN 325 MG CAPSULE Take 2 capsules by mouth ever* ACIDOPHILUS 25 MILLION CELL-P* Take 1 tablet by mouth twice * ASPIRIN 81 MG TABLET,DELAYED * Take 81 mg by mouth once rhoda* BISACODYL 5 MG TABLET Take 1 tablet by mouth as nee* BISACODYL 10 MG RECTAL SUPPOS* 10 mg by RECTAL route every 2* FLUOXETINE 10 MG CAPSULE Take 10 mg by mouth once rhoda* FLUOXETINE 20 MG CAPSULE Take 20 mg by mouth once rhoda* HEPARIN LOCK FLUSH INTRAVEN. Inject 5 mL intravenously declan* INSULIN LISPRO (U-100) 100 UN* Inject 100 Units subcutaneous* INSULIN REGULAR HUMAN U-500 "* Inject 32 Units subcutaneousl* INSULIN REGULAR HUMAN U-500 "* Inject 38 Units subcutaneousl* HYDROCODONE 5 MG-ACETAMINOPHE* Take 1 tablet by mouth every * FUROSEMIDE 80 MG TABLET Take 80 mg by mouth once rhoda* INSULIN DETEMIR (U-100) 100 U* Inject 86 Units subcutaneousl* LISINOPRIL 40 MG TABLET Take 40 mg by mouth once rhoda* METFORMIN 1,000 MG TABLET Take 1,000 mg by mouth twice * MILK OF MAGNESIA ORAL Take 30 mL by mouth every 24 * SIMVASTATIN 20 MG TABLET Take 20 mg by mouth daily at * Problem List As Of Date: 06/28/2018 (None) Other instructions from your clinician: WOUND CARE INSTRUCTIONS Will Jacinto Wound location: Right lateral foot and right lateral lower leg Continue current wound care as previously written Profore: ? Cast cover may be purchased at your local drug store to wear to allow you to shower ? Remove compression wraps if they become uncomfortable or cause change in color or sensation to the extremity. Rewrap as instructed. To give your wound the best chance to heal: - Eat three balanced meals daily focusing on the protein - Control swelling by elevating the extremity above your heart - exercise the extremity - Control your blood sugar. Keep blood sugar less than 200 - Complete your wound care instructions - Vitamin C 500 mg twice daily - Multiple Vitamin Daily - Drink a protein shake daily Report any of the following changes to the Wound Center at [phone] or go to the Emergency Department: ? Fever or chills ? Increased drainage ? Green or yellow drainage ? Foul odor ? Increased pain ? Hardness around the wound ? Redness, warmth or swelling of the surrounding tissue ? Color change to the wound PLAN: Return to the wound center as needed Patient to see Dr. Glenn Kwan MD/pw Visit Notes: >> Roselia (Rn) GLYNN Sandoval Jun 28, 2018 2:33 PM Status: Signed Nursing Note See provider note for wound description and measurements Dressing removed and wound washed with saline solution 0.9% In the presence and direction of the provider wound care as written below: Right lateral lower leg: L: 3.6 cm x W: 3.5 cm x D: 0.2 cm Right lateral foot: 2.6 cm x 6.8 cm x D: 0.5cm Wounds both irrigated with dakins 0.125% 20 cc each wound. Pat dry. Wounds then packed with dakins 0.125% moistened gauze. Sites covered with abd pad and kerlix wrap. Profore light applied. Profore Multiple layer Application: A 3- layer system applied to the bilateral lower extremities. A layer of cast padding, crepe bandage, light compression bandage, followed with a layer of coban and stockinet from behind the toes to 1" below the knee. Toes were warm and pink before and post application. + dorsal pedis pulse on palpation. It was demonstrated to the patient how to check for adequate circulation. If the patient exhibits a change in color to the extremity: change in temperature, increased pain, or the compression wrap becomes wet or to tight, the patient has been instructed to remove the wrap or go to the Emergency Department. Patient voices understanding with intent to comply. PLAN: Return to the wound center as needed Patient to see Dr. Luu EDUCATION: The patient/family was instructed how to wash the wound(s) with dial soap, rinsing with water, AND patting dry. Visual demonstration on how to apply the dressing. Signs AND symptoms of infection were reviewed: Increased redness, swelling, pain, green, yellow drainage, fever or chills all would need to be evaluated by a Physician. Patient received typed homegoing wound care instructions and has expressed intent to comply. Encounter Status:Closed by TERRIE KWAN MD on 06/30/18 [facility] PROGRESSon 06-28-2018 Protein mass conc HNO ID: [id number] Author: Terrie Kwan Service: (none) Author Type: Physician Type: Progress Notes Filed: 06/30/2018 8:02 AM Note Text: INFECTIOUS DISEASE WOUND CENTER NOTE Patient Name: Will Jacinto Date: 06/28/2018 ASSESSMENT: Right leg cellulitis - likely from worsening edema PsAG and diphtheroid infection Leg lymphedema Morbid Obesity DM2 Right foot lateral plantar aspect nonhealing wound: Concern of recurrent infection PLAN: Needs more incision and drainage of right foot wound We'll discuss with podiatry - Dr Luu May need MRI of the right foot versus hospitalization and IV antibiotic therapy restarted Discussed with patient in detail Continue doxycycline for now Follow-up as needed in the wound center INTERVAL HISTORY: ROS done with pt and negative unless stated. Had developed worsening clear drainage from his right leg lateral aspect wound and was started on doxycycline by podiatry about 2 weeks ago. Also has a nonhealing wound on the right foot lateral aspect which has also drained some. No fevers chills nausea vomiting diarrhea. MEDICATIONS: doxycycline hyclate (VIBRAMYCIN) 100 mg capsule Take by mouth. doxycycline hyclate (VIBRAMYCIN) 100 mg capsule Take 100 mg by mouth. ARIPiprazole (ABILIFY) 10 mg tablet Take 10 mg by mouth once daily. acetaminophen 325 mg cap Take 2 capsules by mouth every 6 hours. Acidophilus-Pectin, [place] 25 million cell -100 mg tab Take 1 tablet by mouth twice daily. aspirin, enteric coated (ASPIRIN, ENTERIC COATED) 81 mg EC tablet Take 81 mg by mouth once daily. Bisacodyl (DULCOLAX) 5 mg tab Take 1 tablet by mouth as needed. bisacodyl (DULCOLAX, BISACODYL,) 10 mg supp 10 mg by RECTAL route every 24 hours. FLUoxetine (PROZAC) 10 mg capsule Take 10 mg by mouth once daily. FLUoxetine (PROZAC) 20 mg capsule Take 20 mg by mouth once daily. heparin sodium,porcine (HEPARIN LOCK FLUSH INTRAVEN.) Inject 5 mL intravenously every 8 hours. insulin lispro (HUMALOG LEONARDO KWIKPEN U-100) 100 unit/mL inph Inject 100 Units subcutaneously three times daily before meals. insulin regular hum U-500 conc (HUMULIN R U-500, CONC, KWIKPEN) 500 unit/mL (3 mL) inpn Inject 32 Units subcutaneously daily with breakfast. insulin regular hum U-500 conc (HUMULIN R U-500, CONC, KWIKPEN) 500 unit/mL (3 mL) inpn Inject 38 Units subcutaneously daily with breakfast. HYDROcodone-acetaminophe n (NORCO) 5-325 mg per tablet Take 1 tablet by mouth every 4 hours. furosemide (LASIX) 80 mg tablet Take 80 mg by mouth once daily. insulin detemir U-100 (LEVEMIR U-100 INSULIN) 100 unit/mL injection Inject 86 Units subcutaneously daily at bedtime. lisinopril (ZESTRIL, PRINIVIL) 40 mg tablet Take 40 mg by mouth once daily. metFORMIN (GLUCOPHAGE) 1,000 mg tablet Take 1,000 mg by mouth twice daily with meals. magnesium hydroxide (MILK OF MAGNESIA ORAL) Take 30 mL by mouth every 24 hours. simvastatin (ZOCOR) 20 mg tablet Take 20 mg by mouth daily at bedtime. PHYSICAL EXAM: Vital signs: stable, afeb General: alert, oriented, NAD Lungs: bilaterally clear to auscultation Heart: regular rate and rhythm Abdomen: soft, non tender, non distended, BS+ Extremities: no swollen joints Skin: no rash Chronic right foot plantar aspect wound with some discoloration at the edges and mild odor Mild cellulitis of the right leg with 3+ edema in the right leg Lab data: reviewed No results found for: WBC, HB, INR, NA, K, CO2, BUN, CREAT, AST, ALT, TBILI, ALKPHOS, WSR, LACT, VANCORA Microbiology data: reviewed Imaging data: reviewed Terrie Kwan MD Pager: [facility] 06-14-2018 CNOV Office Visit ([facility] ) -------- WILL JACINTO ([id number]) 1965 M Date Time Provider Department 06/14/18 1:00 PM [facility] During your visit today, we recorded the following information about you: Temperature Pulse Respiration Blood pressure 98.3 degrees 98/minute 16/minute 125/59 Jayson Hawthorne MD, MD 06/16/2018 11:23 AM Signed INFECTIOUS DISEASE WOUND CENTER NOTE Patient Name: Will Jacinto Date: 06/14/2018 ASSESSMENT: R 5th toe OM PsAG and diphtheroids infection Leg lymphedema Obesity DM2 PLAN: Stop meropenem She has completed 6 weeks of treatment PICC [facility] by the [facility] Continue compression for edema and lymphedema management Continue aggressive wound care [facility] and will go home once the wound has healed Follow-up with podiatry Dr. luu Follow-up in the wound center in 2 weeks INTERVAL HISTORY: ROS done with pt and negative unless stated. The patient has been on meropenem since 05/05/2018. He is doing very well with the antibiotics and denies any side effects. No issues with the PICC line noted. Lab work was reviewed with the patient today as well. He still has an open wound at the back of the leg on the right as well as the lateral foot wound. No signs or symptoms of infection abscess or cellulitis at this time he has serous drainage from the wound MEDICATIONS: No prescriptions on file. PHYSICAL EXAM: Vital signs: stable, afeb General: alert, oriented, NAD Lungs: bilaterally clear to auscultation Heart: regular rate and rhythm Abdomen: soft, non tender, non distended, BS+ Extremities: no swollen joints Skin: no rash He still has an open wound at the back of the leg on the right as well as the lateral foot wound. No signs or symptoms of infection abscess or cellulitis at this time he has serous drainage from the wound Lab data: reviewed No results found for: WBC, HB, INR, NA, K, CO2, BUN, CREAT, AST, ALT, TBILI, ALKPHOS, WSR, LACT, VANCORA Microbiology data: reviewed Imaging data: reviewed Jayson Hawthorne MD [phone] 06/14/2018 1:56 PM Debbie Casey, RN, RN 06/14/2018 2:02 PM Signed Nursing Note See provider note for wound description and measurements Dressing removed and wound washed with saline solution 0.9% In the presence and direction of the provider wound care as written below: Right lateral lower leg: Right lateral foot: Wounds both irrigated with dakins 0.125% 20 cc each wound. Pat dry. Wounds then packed with dakins 0.125% moistened gauze. Sites covered with abd pad and kerlix wrap. Profore light applied. Profore Multiple layer Application: A 3- layer system applied to the bilateral lower extremities. A layer of cast padding, crepe bandage, light compression bandage, followed with a layer of coban and stockinet from behind the toes to 1" below the knee. Toes were warm and pink before and post application. + dorsal pedis pulse on palpation. It was demonstrated to the patient how to check for adequate circulation. If the patient exhibits a change in color to the extremity: change in temperature, increased pain, or the compression wrap becomes wet or to tight, the patient has been instructed to remove the wrap or go to the Emergency Department. Patient voices understanding with intent to comply. PLAN: Return to the wound center to see ID in 2 weeks PICC is to be removed per prison EDUCATION: The patient/family was instructed how to wash the wound(s) with dial soap, rinsing with water, AND patting dry. Visual demonstration on how to apply the dressing. Signs AND symptoms of infection were reviewed: Increased redness, swelling, pain, green, yellow drainage, fever or chills all would need to be evaluated by a Physician. Patient received typed homegoing wound care instructions and has expressed intent to comply. Debbie Casey RN, RN 06/14/2018 2:01 PM Addendum WOUND CARE INSTRUCTIONS Will Chika Jacinto Wound location: Right lateral foot and right lateral lower leg Continue current wound care as previously written Profore: ? Cast cover may be purchased at your local drug store to wear to allow you to shower ? Remove compression wraps if they become uncomfortable or cause change in color or sensation to the extremity. Rewrap as instructed. To give your wound the best chance to heal: - Eat three balanced meals daily focusing on the protein - Control swelling by elevating the extremity above your heart - exercise the extremity - Control your blood sugar. Keep blood sugar less than 200 - Complete your wound care instructions - Vitamin C 500 mg twice daily - Multiple Vitamin Daily - Drink a protein shake daily Report any of the following changes to the Wound Center at [phone] or go to the Emergency Department: ? Fever or chills ? Increased drainage ? Green or yellow drainage ? Foul odor ? Increased pain ? Hardness around the wound ? Redness, warmth or swelling of the surrounding tissue ? Color change to the wound PLAN: Return to the wound center to see ID in 2 weeks PICC is to be removed [facility] Dr. 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 Inject 5 mL intravenously edclan* INSULIN LISPRO (U-100) 100 UN* Inject 100 Units subcutaneous* INSULIN REGULAR HUMAN U-500 "* Inject 32 Units subcutaneousl* INSULIN REGULAR HUMAN U-500 "* Inject 38 Units subcutaneousl* HYDROCODONE 5 MG-ACETAMINOPHE* Take 1 tablet by mouth every * FUROSEMIDE 80 MG TABLET Take 80 mg by mouth once rhoda* INSULIN DETEMIR (U-100) 100 U* Inject 86 Units subcutaneousl* LISINOPRIL 40 MG TABLET Take 40 mg by mouth once rhoda* METFORMIN 1,000 MG TABLET Take 1,000 mg by mouth twice * MILK OF MAGNESIA ORAL Take 30 mL by mouth every 24 * SIMVASTATIN 20 MG TABLET Take 20 mg by mouth daily at * Problem List As Of Date: 06/14/2018 (None) Other instructions from your clinician: WOUND CARE INSTRUCTIONS Will Jacinto Wound location: Right lateral foot and right lateral lower leg Continue current wound care as previously written Profore: ? Cast cover may be purchased at your local drug store to wear to allow you to shower ? Remove compression wraps if they become uncomfortable or cause change in color or sensation to the extremity. Rewrap as instructed. To give your wound the best chance to heal: - Eat three balanced meals daily focusing on the protein - Control swelling by elevating the extremity above your heart - exercise the extremity - Control your blood sugar. Keep blood sugar less than 200 - Complete your wound care instructions - Vitamin C 500 mg twice daily - Multiple Vitamin Daily - Drink a protein shake daily Report any of the following changes to the Wound Center at [phone] or go to the Emergency Department: ? Fever or chills ? Increased drainage ? Green or yellow drainage ? Foul odor ? Increased pain ? Hardness around the wound ? Redness, warmth or swelling of the surrounding tissue ? Color change to the wound PLAN: Return to the wound center to see ID in 2 weeks PICC is to be removed per prison Dr. Marine DUMONT/mjl Visit Notes: >> Debbie (Glynn) GLYNN Casey chris Jun 14, 2018 1:53 PM Status: Signed Nursing Note See provider note for wound description and measurements Dressing removed and wound washed with saline solution 0.9% In the presence and direction of the provider wound care as written below: Right lateral lower leg: Right lateral foot: Wounds both irrigated with dakins 0.125% 20 cc each wound. Pat dry. Wounds then packed with dakins 0.125% moistened gauze. Sites covered with abd pad and kerlix wrap. Profore light applied. Profore Multiple layer Application: A 3- layer system applied to the bilateral lower extremities. A layer of cast padding, crepe bandage, light compression bandage, followed with a layer of coban and stockinet from behind the toes to 1" below the knee. Toes were warm and pink before and post application. + dorsal pedis pulse on palpation. It was demonstrated to the patient how to check for adequate circulation. If the patient exhibits a change in color to the extremity: change in temperature, increased pain, or the compression wrap becomes wet or to tight, the patient has been instructed to remove the wrap or go to the Emergency Department. Patient voices understanding with intent to comply. PLAN: Return to the wound center to see ID in 2 weeks PICC is to be removed per prison EDUCATION: The patient/family was instructed how to wash the wound(s) with dial soap, rinsing with water, AND patting dry. Visual demonstration on how to apply the dressing. Signs AND symptoms of infection were reviewed: Increased redness, swelling, pain, green, yellow drainage, fever or chills all would need to be evaluated by a Physician. Patient received typed homegoing wound care instructions and has expressed intent to comply. Encounter Status:Closed by LURDES CARMONA on 06/16/18 [facility] [place] PROGRESSon 06-14-2018 Protein mass conc HNO ID: [id number] Author: Jayson Hawthorne MD Service: (none) Author Type: Physician Type: Progress Notes Filed: 06/16/2018 11:23 AM Note Text: INFECTIOUS DISEASE WOUND CENTER NOTE Patient Name: Will Jacinto Date: 06/14/2018 ASSESSMENT: R 5th toe OM PsAG and diphtheroids infection Leg lymphedema Obesity DM2 PLAN: Stop meropenem She has completed 6 weeks of treatment PICC line to be removed by the prison Continue compression for edema and lymphedema management Continue aggressive wound care [facility] is [facility] a [facility] for [facility] and will go home once the wound has healed Follow-up with podiatry Dr. luu Follow-up in the wound center in 2 weeks INTERVAL HISTORY: ROS done with pt and negative unless stated. The patient has been on meropenem since 05/05/2018. He is doing very well with the antibiotics and denies any side effects. No issues with the PICC line noted. Lab work was reviewed with the patient today as well. He still has an open wound at the back of the leg on the right as well as the lateral foot wound. No signs or symptoms of infection abscess or cellulitis at this time he has serous drainage from the wound MEDICATIONS: No prescriptions on file. PHYSICAL EXAM: Vital signs: stable, afeb General: alert, oriented, NAD Lungs: bilaterally clear to auscultation Heart: regular rate and rhythm Abdomen: soft, non tender, non distended, BS+ Extremities: no swollen joints Skin: no rash He still has an open wound at the back of the leg on the right as well as the lateral foot wound. No signs or symptoms of infection abscess or cellulitis at this time he has serous drainage from the wound Lab data: reviewed No results found for: WBC, HB, INR, NA, K, CO2, BUN, CREAT, AST, ALT, TBILI, ALKPHOS, WSR, LACT, VANCORA Microbiology data: reviewed Imaging data: reviewed Jayson Hawthorne MD [phone] 06/14/2018 1:56 PM [facility] Culture Anaerobeon 06-27-201 8 Culture Anaerobe Specimen Comments: RIGHT FIFTH METATARSALCulture Observations: No anaerobes isolatedSusceptibility Data: --- [facility] Comment on above: Order Comment: CONTR AST PER RADIOLOGIST DISCRETION. R/o abscess, OM Performed By: #### C HARLAN ####[facility], [place] [address] Culture Wound Aerobic w/ Gra chika Rosales 05-04-2018 Culture Wound Aerobic w/ Gram St Specimen Comments: RIGHT FIFTH METATARSALCulture Exam: ---------1. Corynebacterium striatum Small numbers ofSusceptibility Data: --- Normal [facility] Comment on above: Order Comment: CONTR AST PER RADIOLOGIST DISCRETION. R/o abscess, OM Result Comment: [facility] eptibility testing not routinely performed on this isolate. Performed By: #### C XWND ####[facility] [place] [address] [facility] Surgical Pathology Depar tmenton 05-04-2018 [facility] Surgical Pathology Department Name WILL JACINTO Pathologist: VIRGIL JIMENEZ, MDDate of Procedure: 05/04/2018Date Received: 05/04/2018Date Reported 05/12/2018Submitting Physician: DILLON NEWSOMEMLocation: [facility]MISC Copy To/Referring/Attending:Gina GARNER MD Other External # [id number] FINAL DIAGNOSISFIFTH METATARSAL, RIGHT, AMPUTATION: --MARROW WITH CHRONIC OSTEOMYELITIS AND FOCAL HEMATOPOIESIS--BONE AND CARTILAGE WITH DEGENERATIVE CHANGES Electronically Signed Out By VIRGIL JIMENEZ MD/[facility] the signature on this report, the individual or group listed as making theFinal Interpretation/Diagnosis certifies that they have reviewed this case. Clinical History:Osteomyelitits 5th metatarsal right footSpecimens Submitted As:A: RIGHT FIFTH METATARSAL Other Case Numbers [id number] Description:A. Received in formalin, labeled with the patient's name and hospital numberand right fifth metatarsal is a single fragment of bone measuring 4.3 x 3.1 x2.2 cm. Roll Tender sections of the specimen are submitted followingdecalcification .HXRhxr/05/06/2018 Normal [facility] Comment on above: Performed By: #### U [facility] ####[facility] Surgical Pathology [address] [place] [address] Ferritinon 04-30-2018 Ferritin 138 ng/mL Normal 8-252 [facility] Comment on above: Performed By: #### B 12, FERRTN ####[facility] [place] [address] Iron with TIBCon 04-30-2018 % Saturation 19 % Normal 16-46 [facility] Comment on above: Performed By: #### I RONIBC ####[place] [address] Iron 43 ug/dL Low 50-170 [facility] Comment on above: Performed By: #### I RONIBC ####[place] [address] TIBC 222 ug/dL Low 250-450 [facility] Comment on above: Performed By: #### I RONIBC ####[place] [address] Occult Blood Stool 1-3on Occult Blood Normal NEGATIVE [facility] Comment on above: Order Comment: CONTR AST PER RADIOLOGIST DISCRETION. R/o abscess, OM Performed By: #### O CBLDST ####[place] [address] Occult Blood Negative Normal NEGATIVE [facility] Comment on above: Order Comment: CONTR AST PER RADIOLOGIST DISCRETION. R/o abscess, OM Performed By: #### O CBLDST ####[place] [address] Vitamin B12on 04-30-2018 Cobalamins (Vitamin B12) 365.0 pg/mL Normal 193.0-986.0 [facility] Comment on above: Performed By: #### B 12, FERRTN ####[place] [address] MRI Low Ext RT Non-JT w/wo c ontraston 04-29-2018 MRI Low Ext RT Non-JT w/wo contrast Examination:MRI right footClinical Indication:Pain, swelling and drainage, multiple ulcersComparison:NoneFin dings:Multiplanar multisequence high field strength MRI images were obtained throughthe right foot prior to and after 15 mL Gadavist intravenous gadolinium.Examination is moderately limited by motion artifact and slightly ppnhbvinkszceiai-br-hmev e. Unable to utilize the dedicated foot coil secondary to patientenlarged habitus.Postsurgical changes consistent with prior resection of the fifth digit at theproximal metadiaphysis of the metatarsal.There is a focal mid depth soft tissue ulceration along the lateral aspect ofthe foot at the proximal metatarsal level that measures 1.8 cm anterior toposterior, 2.0 cm cranial caudal and up to 0.6 cm in depth.This demonstrates marginal edema and enhancement that is consistent withcellulitis. There is no drainable fluid collection, abscess. The wound appearsto extend down to the base of the residual fifth metatarsal. The basedemonstrates increased T2 signal and enhancement that is consistent withosteomyelitis.Perone al tendon remains attached to the base of the fifth residual metatarsalfragment.There is no other evidence of abnormal bone signal or enhancement to suggestosteomyelitis.The re is soft tissue swelling along the dorsum of the midfoot and along theforefoot circumferentially with enhancement which may represent cellulitis.There is some edema and mild enhancement noted along the plantar musculature,likely related to diabetes mellitus and chronic small vessel ischemic disease.There is no pyomyositis.Midfoot demonstrates articular cartilage thinning along with dorsal osteophytes,mild to moderate osteoarthropathy. Calcaneal enthesophyte/bone spur. Mildplantar fasciitis.There is no ligament/tendon tear. No evidence of septic arthropathy.Impression:1 . Somewhat limited examination.2. Postsurgical changes consistent with prior resection of the fifth digit atthe proximal metatarsal.3. Cellulitis noted along the forefoot and lateral midfoot with sizable lateralsided ulceration.4. Probable osteomyelitis of the residual base of the fifth metatarsal.Report Dictated on Workstation: [id number] ed by: Shayy Gregory: 04/29/2018 14:18Read by: ROSE GREGORY, MDDate: 04/29/2018 14:18 [facility] Comment on above: Order Comment: CONTR AST PER RADIOLOGIST DISCRETION. R/o abscess, OM XR Foot Right complete 3 plu s viewson 04-28-2018 XR Foot Right complete 3 plus views Right footCLINICAL INDICATION: Pain right foot. Sores. Patient has diabetes.COMPARISON: 03/15/2018AP, oblique and lateral views were obtained. The bones in general areosteopenic. There is been additional amputation of the fifth metatarsal sincethe prior study with a small amount of the fifth metatarsal base remaining.There is soft tissue irregularity laterally and bandaging material surrounds thefoot. Diffuse soft tissue swelling is noted.No definite areas of bone destruction are noted. The remaining portion of thefifth metatarsal is difficult to assess given the relatively recent amputation.Degenerative changes in the first metatarsal phalangeal joint andinterphalangeal joints are similar to the prior exam.IMPRESSION:Interval further amputation of the fifth metatarsalSoft tissue swelling but no obvious evidence of osteomyelitis is noted. Theresidual portion of the fifth metatarsal is very difficult to assess given therecent surgeryReport Dictated on Workstation: [id number] by: Garima Love: 04/28/2018 17:30Read by: Sofia PATEL: 04/28/2018 17:30 [facility] Culture Anaerobeon 8 Culture Anaerobe Culture Observations: No anaerobes isolatedSusceptibility Data: --- [facility] Comment on above: Performed By: #### C HARLAN ####[facility] [place] [address] Culture Wound Aerobic w/ Gra m Ston 03-18-2018 Culture Wound Aerobic w/ Gram St Specimen Comments: BoneCulture Observations: Rare colonies of normal skin dorinda (diphtheroids)Direct Exam: ---------No WBCs seenNo organisms seenSusceptibility Data: --- [facility] Comment on above: Order Comment: TULIO morris erformed at additional charge whenindicated Performed By: #### C XWND ####[place] [facility] [place], [place] [address] [facility] Surgical Pathology Depar tmenton 03-18-2018 [facility] Surgical Pathology Department Name WILL JACINTO Pathologist: VIRGIL JIMENEZ, MDDate of Procedure: 03/18/2018Date Received: 03/18/2018Date Reported 03/29/2018Submitting Physician: IWONA NEWSOMEocation: [facility] Copy To/Referring/Attending:Gina GARNER MD Other External # [id number] FINAL DIAGNOSISBONE, RIGHT FOOT, EXCISION: --CHRONIC OSTEOMYELITIS Electronically Signed Out By VIRGIL JIMENEZ MD/Johnnie the signature on this report, the individual or group listed as making theFinal Interpretation/Diagnosis certifies that they have reviewed this case. Clinical History:OsteomylitisSpec imens Submitted As:A: BONE RIGHT FOOT Other Case Numbers [id number] Description:Received in formalin, labeled with the patient's name and hospital number and"bone right foot", is a bone measuring 2.7 x 0.7 x 0.7 cm. Representativesections are submitted in 2 cassettes following decalcification.DJOSumma ry of Cassettes:Specimen Label SiteA 1 resection margin 2 representativedjo/ 018 Normal [facility] Comment on above: Performed By: #### U [facility] ####[facility] Surgical Pathology [address] [place] [address] XR Chest Mobile 1 viewon XR Chest Mobile 1 view CLINICAL INFORMAT ION: Line placement.Portable view of the chest at 1405 hours is provided and compared with aprevious study dated 09/24/2014.FINDINGS: A PICC line is now in place via the left arm. The distal tip is in theright atrium. The cardiac silhouette and mediastinum are otherwise within normallimits. There is prominence of the central pulmonary vasculature.IMPRESSION:1 . New left arm PICC line as described. The distal tip is in the right atrium.2. Prominence of the central pulmonary vasculature consistent with mildcongestive heart failure/fluid overload.Report Dictated on Workstation: [id number] ated by: Nay Ovalles: 03/18/2018 14:29Read by: SERGIO OVALLES, MDDate: 03/18/2018 14:29 Normal [facility] Iron with TIBCon 03-16-2018 % Saturation 25 % Normal 16- [facility] Comment on above: Performed By: #### I RONIBC ####[facility] [place], [place] [address] Iron 65 ug/dL Normal 50-170 [facility] Comment on above: Performed By: #### I CLAUDIAIBC ####[facility], [place] [address] TIBC 258 ug/dL Normal 250-450 [facility] Comment on above: Performed By: #### I CLAUDIAIBC ####[facility], [place] [address] MRI Low Ext RT Non-Jt wo con traston 03-16-2018 MRI Low Ext RT Non-Jt wo contrast Examination:MRI right footClinical Indication:Pain, chronic osteomyelitisComparison: X-ray 03/15/2018Findings:Multipl vazquez multisequence high field strength MRI images were obtained throughthe right foot without intravenous gadolinium.Examination is moderately limited by motion artifact despite attempts at repeatimaging. Patient unable to remain still during the examination.Postsurgical changes consistent with fifth metatarsal mid diaphysis amputation.There is a intermediate depth soft tissue ulceration seen along the lateralaspect of the foot measuring approximately 1.8 cm anterior to posterior, 0.5 cmdepth and 1.1 cm anterior to posterior.There is no evidence of abscess. There is increased T2 signal along the residualdiaphysis of the partially amputated fifth metatarsal which given the proximityof the wound tract is highly concerning for osteomyelitis. This spares the base.There is subcutaneous edema, nonspecific along the dorsum of the foot extendingto the phalanges. There is also some increased edema along the plantarmusculature, nonspecific. Findings can represent diabetes related small vesseldisease, chronic myositis. There is no evidence of gross pyomyositis.No ligament or tendon discontinuity.Midfoot demonstrates articular cartilage thinning diffusely. Trace amount ofdegenerative subchondral edema along the middle cuneiform at the navicular.Impression:1. Postsurgical changes, previous remote amputation of the fifth metatarsal middiaphysis.2. Sizable intermediate depth soft tissue erosion along the lateral forefootadjacent to the residual metatarsal. Findings highly concerning forosteomyelitis within the residual metatarsal diaphysis. The base.3. Nonspecific soft tissue swelling more pronounced along the dorsum of the midand forefoot and along the phalanges possibly a cellulitis. Additional 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.Report Dictated on Workstation: [id number] ated by: Rose GregoryOn: 03/16/2018 10:41Read by: EVELYNE RAYate: 03/16/2018 10:41 [facility] Comment on above: Order Comment: CONTR AST PER RADIOLOGIST DISCRETION Occult Blood Stool 1-3on Occult Blood Normal NEGATIVE [facility] Comment on above: Order Comment: x1 Performed By: #### O CBLDST ####[place] [address] Occult Blood Negative [place] NEGATIVE [facility] Comment on above: Order Comment: x1 Performed By: #### O CBLDST ####[place] [address] XR Foot Right complete 3 plu s viewson 03-15-2018 XR Foot Right complete 3 plus views RIGHT FOOT:CLINICAL INDICATION: Pain with previous amputation.TECHNIQUE: AP, Lat, ObliqueCOMPARISON: 02/02/2018FINDINGS: There is no evidence for fracture or dislocation. Surgicallyamputation is again noted at the midportion of the fifth metatarsal. Spurring isnoted about the base of the first proximal phalanx and head of the firstmetatarsal. There is also spurring and narrowing at the first distalinterphalangeal joint. Extensive spurring is noted about the calcaneus as wellas about the dorsal aspect of the tarsal bones. No erosive bone lesion isidentified. Soft tissue swelling is noted, although there is a soft tissuedefect near the amputation site of the fifth metatarsal without underlying softtissue gas.IMPRESSION: Evidence of prior surgery with marked degenerative change andspurring. No destructive bone lesion or soft tissue gas collection.Report Dictated on Workstation: [id number] laura by: Nay Muniz: 03/15/2018 23:44Read by: EVELYNE SEGURAate: 03/15/2018 23:44 [facility] Comment on above: Order Comment: R/o O M Culture Anaerobeon 8 Culture Anaerobe Specimen Comments: RIGHT FOOT SOFT TISSCulture Exam: ---------1. anaerobic gram positive cocci Small numbers ofSusceptibility Data: --- [facility] Comment on above: Order Comment: AEROB IC/ANAEROBIC CULTURES OF RIGHT FOOT SOFT TISS Result Comment: (TULIO s not performed on anaerobes) Performed By: #### C HARLAN ####[facility], [place] [address] Culture Wound Aerobic w/ Gra m Stojermaine 02-04-2018 Culture Wound Aerobic w/ Gram St Specimen Comments: RIGHT FOOT SOFT TISSCulture Observations: Small numbers of mixed enteric dorinda and mixed skin dorinda- more than 3 organisms with none predominant.No Staphylococcus aureus, Pseudomonas aeruginosa or beta Streptococcus isolatedDirect Exam: ---------No WBCs seenNo organisms seenSusceptibility Data: --- [facility] Comment on above: Order Comment: AEROB IC/ANAEROBIC CULTURES OF RIGHT FOOT SOFT TISS Performed By: #### C XWND ####[place] [facility] [place] [address] MRI Low Ext RT Non-JT w/wo c [facility] 02-02-2018 MRI Low Ext RT Non-JT w/wo contrast CLINICAL INFORMATION: Plantar lateral right foot ulcer. Prior right toeamputation. Soft tissue swelling..MRI right foot without and with intravenous contrast:Contrast: Gadavist, 15 mL.Sagittal T1 and T2-weighted inversion recovery, axial T1 and fat-suppressedturbo spin-echo T2 and coronal fat-suppressed proton density images are obtainedprior to gadolinium administration. Axial and coronal fat suppressed T1-weightedimages were obtained following gadolinium administration. Sagittal postcontrastT1-weighted images could not be obtained due to patient's refusal to completethe examination. All of the images are degraded by artifact from patient motion.Some of the sequences are limited by suboptimal positioning due to large bodyhabitus. Correlation is made with the radiographs of the previous day.There is been amputation of the fifth ray at the level of the proximal fifthmetatarsal diaphysis. There is a lateral soft tissue defect at the level of thedistal aspect of the metatarsals consistent with the clinically described ulcer.There is mildly increased signal intensity in the bone marrow of the proximalfifth metatarsal diaphysis on T2-weighted images without hypointensity onprecontrast T1-weighted images or associated contrast enhancement most likelyrelated to incomplete fat suppression secondary to magnetic field inhomogeneity.There is similar hyperintensity in the bone marrow of the heads of the secondthrough fourth metatarsals and the phalanges of the second through fourth toesalso most likely related to incomplete fat suppression. There is mildlyenhancing edema in the subcutaneous soft tissues of the second through fourthtoes as well as edema in the subcutaneous soft tissues dorsal to the mid anddistal aspects of the second through fourth metatarsals. No discrete focal fluidcollection is seen.There are no other areas of abnormal bone marrow signal intensity. No grossabnormality of the subtalar joint, tarsal sinus or talocalcaneal ligament isidentified on limited evaluation.IMPRESSION:1. Limited examination due to multiple factors described above.2. Prior amputation of the fifth ray without convincing evidence of bone marrowedema in the remnant of the fifth metatarsal.3. Edema in these subcutaneous soft tissues dorsal to the second through fourthmetatarsals and the second through fourth toes compatible with cellulitis. Nofocal fluid collection is seen to suggest abscess. Deformity of the lateralsubcutaneous soft tissues of the forefoot compatible with the clinicallydescribed ulcer.4. No convincing evidence of other areas of bone marrow edema to suggestosteomyelitis.5. Due to the images degrading artifacts, a radionuclide bone scan may be ofvalue if there is continued clinical concern of osteomyelitis.Report Dictated on Workstation: [id number] ated by: Irma Barragan: 02/03/2018 12:13Read by: IFTIKHAR BARRAGAN, EVELYNEate: 02/03/2018 12:13 [facility] Comment on above: Order Comment: CONTR AST PER RADIOLOGIST DISCRETION. R/o abscess, OM XR Foot Right complete 3 plu s viewson 02-02-2018 XR Foot Right complete 3 plus views RIGHT FOOT:CLINICAL INDICATION: Pain and swelling.TECHNIQUE: AP, Lat, ObliqueCOMPARISON: 09/18/2014FINDINGS: There has been surgically dilatation at the mid-level of the fifthmetatarsal. No acute fracture or dislocation is identified. Marked bony spurringis noted about the lateral base of the first proximal phalanx and about thecalcaneus as well as about the dorsal aspect of the talus and navicular. Nodestructive bone lesion is noted. There is generalized soft tissue swellingwithout soft tissue gas.IMPRESSION: No new destructive lesion identified to suggest osteomyelitis.Generalize d soft tissue swelling.Report Dictated on Workstation: [id number] ated by: Nay Muniz: 02/02/2018 15:32Read by: SERGIO MUNIZ, EVELYNEate: 02/02/2018 15:32 [facility] Comment on above: Order Comment: R/o O M Vital Signs Date Time Vital Sign Value Performing Clinician Facility 04-06-2025 08:50-0400 Body height 167.6 cm [facility] Work Phone: [employer] 04-06-2025 08:50-0400 Body mass index (BMI) [Ratio] 48.1 kg/m2 [facility] Work Phone: [employer] 04-06-2025 08:50-0400 Body weight 135.17 kg [facility]-06-[facility]25 08:50-0400 Diastolic blood pressure 72 mm[Hg] [facility] Work Phone: [employer] 04-06-2025 08:50-0400 Heart rate 86 /min [facility] Work Phone: [employer] 04-06-2025 08:50-0400 Systolic blood pressure 114 mm[Hg] Kaushal Schultz PA-C Work Phone: [employer] 02-01-2025 09:50-0400 Body height 167.6 cm Alejandro Mandel PERSONAL CARE SERVICE PROVIDER - [employer] Work Phone: [employer] 02-01-2025 09:50-0400 Body mass index (BMI) [Ratio] 48.1 kg/m2 Alejandro Mandel PERSONAL CARE SERVICE PROVIDER - [employer] WORK[employer] Work Phone: [employer] 02-01-2025 09:50-0400 Body temperature 97 [degF] Alejandro Mandel PERSONAL CARE SERVICE PROVIDER - [employer] WORK[employer] Work Phone: [employer] 02-01-2025 09:50-0400 Body weight 135.17 kg Alejandro Mnadel PERSONAL CARE SERVICE PROVIDER - [employer] WORK[employer] Work Phone: [employer] 02-01-2025 09:50-0400 Diastolic blood pressure 82 mm[Hg] Alejandro Mandel PERSONAL CARE SERVICE PROVIDER - [employer] WORK[employer] Work Phone: [employer] 02-01-2025 09:50-0400 Heart rate 76 /min Alejandro Mandel PERSONAL CARE SERVICE PROVIDER - [employer] WORKER Work Phone: [employer] 02-01-2025 09:50-0400 Respiratory rate 18 /min Alejandro Mandel PERSONAL CARE SERVICE PROVIDER - [employer] WORK[employer] Work Phone: [employer] 02-01-2025 09:50-0400 SaO2% (BldA) [Mass fraction] 97 % Alejandro Mandel PERSONAL CARE SERVICE PROVIDER - [employer] WORK[employer] Work Phone: [employer] 02-01-2025 09:50-0400 Systolic blood pressure 124 mm[Hg] Alejandro Mandel PERSONAL CARE SERVICE PROVIDER - [employer] WORK[employer] Work Phone: [employer] 01-01-2025 11:26-0500 Body height 167.6 cm Margo Guerrero PERSONAL CARE SERVICE PROVIDER - [employer] WORKER Work Phone: [employer] 01-01-2025 11:26-0500 Body mass index (BMI) [Ratio] 48.1 kg/m2 Margo Guerrero PERSONAL CARE SERVICE PROVIDER - [employer] WORK[employer] Work Phone: [employer] 01-01-2025 11:26-0500 Body weight 135.17 kg Margo Guerrero PERSONAL CARE SERVICE PROVIDER - [employer] WORK[employer] Work Phone: [facility] 01-01-2025 11:26-0500 Diastolic blood pressure 62 mm[Hg] Margo Guerrero PERSONAL CARE SERVICE PROVIDER - [employer] WORK[employer] Work Phone: [facility] 01-01-2025 11:26-0500 Heart rate 72 /min Margo Guerrero PERSONAL CARE SERVICE PROVIDER - [employer] WORK[employer] Work Phone: [facility] 01-01-2025 11:26-0500 Systolic blood pressure 128 mm[Hg] Margo Guerrero PERSONAL CARE SERVICE PROVIDER - [employer] WORK[employer] Work Phone: [facility] 12-21-2024 08:04-0500 Body height 167.6 cm Wanda Cmer PERSONAL CARE SERVICE PROVIDER - [employer] WORKER Work Phone: [facility] 12-21-2024 08:04-0500 Body mass index (BMI) [Ratio] 51.65 kg/m2 Wanda Cmer PERSONAL CARE SERVICE PROVIDER - [employer] WORK[employer] Work Phone: [facility] 12-21-2024 08:04-0500 Body weight 145.15 kg Wanda Cmer PERSONAL CARE SERVICE PROVIDER - [employer] WORK[employer] Work Phone: [facility] 12-21-2024 08:04-0500 Diastolic blood pressure 69 mm[Hg] Wanda Cmer PERSONAL CARE SERVICE PROVIDER - [employer] WORK[employer] Work Phone: [facility] 12-21-2024 08:04-0500 Heart rate 78 /min Wanda Cmer PERSONAL CARE SERVICE PROVIDER - [employer] WORKER Work Phone: [facility] 12-21-2024 08:04-0500 Systolic blood pressure 137 mm[Hg] Wanda Cmer PERSONAL CARE SERVICE PROVIDER - [employer] WORK[employer] Work Phone: [facility] 12-07-2024 12:53-0500 Body temperature 97.59 [degF] Lilo Rizo MD Work Phone: [facility] 12-07-2024 12:53-0500 Diastolic blood pressure 80 mm[Hg] iLlo Rizo MD Work Phone: [facility] 12-07-2024 12:53-0500 Heart rate 82 /min Lilo Rizo MD Work Phone: [employer] 12-07-2024 12:53-0500 Systolic blood pressure 139 mm[Hg] Lilo Rizo MD Work Phone: [employer] 11-14-2024 10:09-0500 Body height 167.6 cm Asuncion Black PERSONAL CARE SERVICE PROVIDER - [employer] WORKER Work Phone: [employer] 11-14-2024 10:09-0500 Body temperature 97.2 [degF] Asuncion Valencia PERSONAL CARE SERVICE PROVIDER - [employer] WORKER Work Phone: [employer] 11-14-2024 10:09-0500 Diastolic blood pressure 79 mm[Hg] Asuncion Valencia PERSONAL CARE SERVICE PROVIDER - [employer] WORKER Work Phone: [employer] 11-14-2024 10:09-0500 Heart rate 83 /min Asuncion Valencia PERSONAL CARE SERVICE PROVIDER - [employer] WORKER Work Phone: [employer] 11-14-2024 10:09-0500 Systolic blood pressure 140 mm[Hg] Asuncion Valencia PERSONAL CARE SERVICE PROVIDER - [employer] WORKER Work Phone: [employer] 11-12-2024 22:42-0500 Body temperature 98.6 [degF] Virgil Mederos MD Work Phone: [employer] 11-12-2024 22:42-0500 Diastolic blood pressure 68 mm[Hg] Virgil Mederos MD Work Phone: [employer] 11-12-2024 22:42-0500 Heart rate 86 /min Virgil Mederos MD Work Phone: [employer] 11-12-2024 22:42-0500 Respiratory rate 16 /min Virgil Mederos MD Work Phone: [employer] 11-12-2024 22:42-0500 SaO2% (BldA) [Mass fraction] 96 % Virgil Mederos MD Work Phone: [employer] 11-12-2024 22:42-0500 Systolic blood pressure 144 mm[Hg] Virgil Mederos MD Work Phone: [facility] 11-10-2024 11:07-0500 Body height 167.6 cm Asuncion Valencia PERSONAL CARE SERVICE PROVIDER - [employer] WORK[employer] Work Phone: [employer] 11-10-2024 11:07-0500 Body temperature 97.3 [degF] Asuncion Valencia PERSONAL CARE SERVICE PROVIDER - [employer] WORKER Work Phone: [employer] 11-10-2024 11:07-0500 Diastolic blood pressure 81 mm[Hg] Asuncion Valencia PERSONAL CARE SERVICE PROVIDER - [employer] WORKER Work Phone: [facility] 11-10-2024 11:07-0500 Heart rate 83 /min Asuncion Valencia PERSONAL CARE SERVICE PROVIDER - [employer] WORKER Work Phone: [facility] 11-10-2024 11:07-0500 Systolic blood pressure 142 mm[Hg] Asuncion Valencia PERSONAL CARE SERVICE PROVIDER - [employer] WORKER Work Phone: [facility] 10-24-2024 14:17-0500 Body temperature 96.91 [degF] Vicente Mixon MD Work Phone: [facility] 10-24-2024 13:39-0500 Diastolic blood pressure 83 mm[Hg] Vicente Mixon MD Work Phone: [facility] 10-24-2024 13:39-0500 Heart rate 64 /min Vicente Mixon MD Work Phone: [facility] 10-24-2024 13:39-0500 Respiratory rate 16 /min Vicente Mixon MD Work Phone: [facility] 10-24-2024 13:39-0500 SaO2% (BldA) [Mass fraction] 98 % Vicente Mixon MD Work Phone: [facility] 10-24-2024 13:39-0500 Systolic blood pressure 123 mm[Hg] Vicente Mixon MD Work Phone: [facility] 10-23-2024 13:55-0500 SaO2% (BldA) [Mass fraction] 93 % Dontrell Woodall DO Work Phone: [facility] 10-23-2024 08:14-0500 Body temperature 97.7 [degF] Dontrell Glozman DO Work Phone: [employer] 10-23-2024 08:14-0500 Diastolic blood pressure 54 mm[Hg] Dontrell Glozman DO Work Phone: [facility] 10-23-2024 08:14-0500 Heart rate 85 /min Dontrell Glozman DO Work Phone: [facility] 10-23-2024 08:14-0500 Respiratory rate 20 /min Dontrell Glozman DO Work Phone: [facility] 10-23-2024 08:14-0500 Systolic blood pressure 127 mm[Hg] Dontrell Glozman DO Work Phone: [facility] 10-22-2024 13:16-0500 Body height 167.6 cm Dontrell Glozman DO Work Phone: [facility] 10-18-2024 21:04-0500 Body mass index (BMI) [Ratio] 51.65 kg/m2 Dontrell Glozman DO Work Phone: [facility] 10-18-2024 21:04-0500 Body weight 145.15 kg Dontrell Glozman DO Work Phone: [facility] 02-11-2024 09:55-0400 Body height 167.6 cm Herber Ramos PERSONAL CARE SERVICE PROVIDER - [employer] WORKER Work Phone: [employer] 02-11-2024 09:55-0400 Body mass index (BMI) [Ratio] 46.83 kg/m2 Herber Ramos PERSONAL CARE SERVICE PROVIDER - [employer] WORKER Work Phone: [employer] 02-11-2024 09:55-0400 Body weight 131.54 kg Herber Ramos PERSONAL CARE SERVICE PROVIDER - [employer] WORK[employer] Work Phone: [employer] 02-11-2024 09:55-0400 Diastolic blood pressure 78 mm[Hg] Herber Ramos PERSONAL CARE SERVICE PROVIDER - [employer] WORK[employer] Work Phone: [employer] 02-11-2024 09:55-0400 Heart rate 79 /min Herber Ramos PERSONAL CARE SERVICE PROVIDER - [employer] WORK[employer] Work Phone: [facility] 02-11-2024 09:55-0400 Respiratory rate 14 /min Herber Ramos APRN - [employer] WORK[employer] Work Phone: [facility] 02-11-2024 09:55-0400 SaO2% (BldA) [Mass fraction] 99 % Herber Ramos APRN - [employer] WORK[employer] Work Phone: [facility] Comment on above: 02-11-2024 09:55-0400 Systolic blood pressure 131 mm[Hg] Herber Ramos APRN - [employer] WORK[employer] Work Phone: [facility] 01-27-2024 18:55-0400 Body height 167.6 cm Fermin Nesheim DO Work Phone: [facility] 01-27-2024 18:55-0400 Body mass index (BMI) [Ratio] 46.81 kg/m2 Fermin Nesheim DO Work Phone: [facility] 01-27-2024 18:55-0400 Body temperature 97.59 [degF] Fermin Nesheim DO Work Phone: [employer] 01-27-2024 18:55-0400 Body weight 131.54 kg Fermin Nesheim DO Work Phone: [employer] 01-27-2024 18:55-0400 Diastolic blood pressure 63 mm[Hg] Fermin Nesheim DO Work Phone: [employer] 01-27-2024 18:55-0400 Heart rate 78 /min Fermin Nesheim DO Work Phone: [employer] 01-27-2024 18:55-0400 Respiratory rate 18 /min Fermin Nesheim DO Work Phone: [employer] 01-27-2024 18:55-0400 SaO2% (BldA) [Mass fraction] 99 % Fermin Nesheim DO Work Phone: [employer] 01-27-2024 18:55-0400 Systolic blood pressure 155 mm[Hg] Fermin Nesheim DO Work Phone: [facility] 01-26-2024 21:29-0400 Body height 167.6 cm Art Zeng DO Work Phone: [employer] 01-26-2024 21:29-0400 Body mass index (BMI) [Ratio] 46.81 kg/m2 Art Zeng DO Work Phone: [employer] 01-26-2024 21:29-0400 Body weight 131.54 kg Art Zeng DO Work Phone: [employer] 01-26-2024 21:28-0400 Body temperature 97.9 [degF] Art Zeng DO Work Phone: [employer] 01-26-2024 21:28-0400 Diastolic blood pressure 63 mm[Hg] Art Zeng DO Work Phone: [employer] 01-26-2024 21:28-0400 Heart rate 83 /min [facility] DO [facility] 01-26-2024 21:28-0400 Respiratory rate 16 /min Art Zeng DO Work Phone: [employer] 01-26-2024 21:28-0400 SaO2% (BldA) [Mass fraction] 100 % Art Zeng DO Work Phone: [employer] 01-26-2024 21:28-0400 Systolic blood pressure 124 mm[Hg] Art Zeng DO Work Phone: [employer] 01-22-2024 07:15-0400 Body temperature 97.59 [degF] Jaquan Roldanchke DO Work Phone: [employer] 01-22-2024 07:15-0400 Diastolic blood pressure 51 mm[Hg] Jaquan Huschke DO Work Phone: [employer] 01-22-2024 07:15-0400 Heart rate 94 /min Jaquan Huschke DO Work Phone: [employer] 01-22-2024 07:15-0400 Respiratory rate 20 /min Jaquanfreida Roldanchke DO Work Phone: [facility] 01-22-2024 07:15-0400 SaO2% (BldA) [Mass fraction] 97 % Jaquan Morris DO Work Phone: [facility] 01-22-2024 07:15-0400 Systolic blood pressure 160 mm[Hg] Jaquan Morris DO Work Phone: [facility] 12-29-2023 08:04-0500 Diastolic blood pressure 53 mm[Hg] Edwin Bustos MD Work Phone: [facility] 12-29-2023 08:04-0500 Heart rate 83 /min Edwin Bustos MD Work Phone: [facility] 12-29-2023 08:04-0500 Respiratory rate 17 /min Edwin Bustos MD Work Phone: [facility] 12-29-2023 08:04-0500 SaO2% (BldA) [Mass fraction] 100 % Edwin Bustos MD Work Phone: [facility] 12-29-2023 08:04-0500 Systolic blood pressure 132 mm[Hg] Edwin Bustos MD Work Phone: [facility] 12-28-2023 23:14-0500 Body height 167.6 cm Edwin Bustos MD Work Phone: [facility] 12-28-2023 23:14-0500 Body mass index (BMI) [Ratio] 52.29 kg/m2 Edwin Bustos MD Work Phone: [facility] 12-28-2023 23:14-0500 Body temperature 97.59 [degF] Edwin Bustos MD Work Phone: [facility] 12-28-2023 23:14-0500 Body weight 146.97 kg Edwin Bustos MD Work Phone: [facility] 12-09-2023 10:05-0500 Diastolic blood pressure 63 mm[Hg] Caridad Evans MD Work Phone: [employer] 12-09-2023 10:05-0500 Heart rate 78 /min Caridad Evans MD Work Phone: [facility] 12-09-2023 10:05-0500 Respiratory rate 23 /min Caridad Evans MD Work Phone: [employer] 12-09-2023 10:05-0500 SaO2% (BldA) [Mass fraction] 97 % Caridad Evans MD Work Phone: [employer] 12-09-2023 10:05-0500 Systolic blood pressure 159 mm[Hg] Caridad Evans MD Work Phone: [facility] 12-09-2023 05:22-0500 Body mass index (BMI) [Ratio] 51.7 kg/m2 Caridad Evans MD Work Phone: [facility] 12-09-2023 05:22-0500 Body temperature 98.4 [degF] Caridad Evans MD Work Phone: [employer] 12-09-2023 05:22-0500 Body weight 145.29 kg Caridad Evans MD Work Phone: [facility] 10-16-2023 21:27-0500 Body temperature 96.91 [degF] Rosaura Mustafa DO Work Phone: [facility] 10-16-2023 21:27-0500 Diastolic blood pressure 59 mm[Hg] Rosaura Mustafa DO Work Phone: [employer] 10-16-2023 21:27-0500 Heart rate 76 /min Rosaura Mustafa DO Work Phone: [employer] 10-16-2023 21:27-0500 Respiratory rate 20 /min Rosaura Mustafa DO Work Phone: [facility] 10-16-2023 21:27-0500 SaO2% (BldA) [Mass fraction] 94 % Rosaura Mustafa DO Work Phone: [employer] 10-16-2023 21:27-0500 Systolic blood pressure 100 mm[Hg] Rosaura Mustafa DO [facility] 10-11-2023 11:21-0500 Body height 167.6 cm Rosaura Mustafa DO [facility] 10-07-2023 16:06-0500 Body mass index (BMI) [Ratio] 51 kg/m2 Rosaura Mustafa DO Work Phone: [employer] 10-07-2023 16:06-0500 Body weight 143.34 kg Rosaura Mustafa DO [facility] 08-19-2023 19:25-0400 Body temperature 97.3 [degF] Aaron Gombash DO Work Phone: [employer] 08-19-2023 19:25-0400 Diastolic blood pressure 60 mm[Hg] Aaron Gombash DO Work Phone: [employer] 08-19-2023 19:25-0400 Heart rate 86 /min Aaron Gombash DO Work Phone: [employer] 08-19-2023 19:25-0400 Respiratory rate 18 /min Aaron Gombash DO Work Phone: [employer] 08-19-2023 19:25-0400 SaO2% (BldA) [Mass fraction] 95 % Aaron Gombash DO Work Phone: [employer] 08-19-2023 19:25-0400 Systolic blood pressure 120 mm[Hg] Aaron Gombash DO Work Phone: [employer] 08-17-2023 12:17-0400 Body height 167.6 cm Aaron Gombash DO Work Phone: [employer] 08-17-2023 12:17-0400 Body mass index (BMI) [Ratio] 54.72 kg/m2 Aaron Gombash DO Work Phone: [employer] 08-17-2023 12:17-0400 Body weight 153.77 kg Aaron Burgos DO Work Phone: [employer] 08-08-2023 13:35-0400 Diastolic blood pressure 63 mm[Hg] Gayle Trevizo MD Work Phone: [employer] 08-08-2023 13:35-0400 Heart rate 100 /min Gayle Trevizo MD Work Phone: [employer] 08-08-2023 13:35-0400 Respiratory rate 20 /min Gayle Trevizo MD Work Phone: [employer] 08-08-2023 13:35-0400 SaO2% (BldA) [Mass fraction] 93 % Gayle Trevizo MD Work Phone: [employer] 08-08-2023 13:35-0400 Systolic blood pressure 122 mm[Hg] Gayle Trevizo MD Work Phone: [employer] 08-08-2023 06:36-0400 Body height 167.6 cm Gayle Trevizo MD Work Phone: [employer] 08-08-2023 06:36-0400 Body mass index (BMI) [Ratio] 54.72 kg/m2 Gayle Trevizo MD Work Phone: [employer] 08-08-2023 06:36-0400 Body temperature 98.29 [degF] Gayle Trevizo MD Work Phone: [employer] 08-08-2023 06:36-0400 Body weight 153.77 kg Gayle Trevizo MD Work Phone: [employer] 07-01-2023 11:21-0400 Body temperature 97.59 [degF] Rosaura Mustafa DO Work Phone: [employer] 07-01-2023 11:21-0400 Diastolic blood pressure 79 mm[Hg] Rosaura Mustafa DO Work Phone: [employer] 07-01-2023 11:21-0400 Heart rate 83 /min Rosaura Mutsafa DO Work Phone: [employer] 07-01-2023 11:21-0400 Respiratory rate 20 /min Rosaura Mustafa DO Work Phone: [facility] 07-01-2023 11:21-0400 SaO2% (BldA) [Mass fraction] 94 % Rosaura Mustafa DO Work Phone: [facility] 07-01-2023 11:21-0400 Systolic blood pressure 133 mm[Hg] Rosaura Mustafa DO Work Phone: [facility] 07-01-2023 03:09-0400 Body mass index (BMI) [Ratio] 53.2 kg/m2 Rosaura Mustafa DO Work Phone: [facility] 07-01-2023 03:09-0400 Body weight 149.51 kg Rosaura Mustafa DO Work Phone: [facility] 03-08-2023 19:30-0400 Body temperature 98.49 [degF] Karlos Voll DO Work Phone: [facility] 03-08-2023 19:30-0400 Diastolic blood pressure 62 mm[Hg] Karlos Voll DO Work Phone: [facility] 03-08-2023 19:30-0400 Heart rate 82 /min Karlos Voll DO Work Phone: [facility] 03-08-2023 19:30-0400 Respiratory rate 18 /min Karlos Voll DO Work Phone: [facility] 03-08-2023 19:30-0400 SaO2% (BldA) [Mass fraction] 98 % Karlos Voll DO Work Phone: [facility] 03-08-2023 19:30-0400 Systolic blood pressure 140 mm[Hg] Karlos Voll DO Work Phone: [facility] 03-08-2023 12:54-0400 Body mass index (BMI) [Ratio] 54.07 kg/m2 Karlos Voll DO Work Phone: [facility] 03-08-2023 12:54-0400 Body weight 151.96 kg Karlos Voll DO Work Phone: [facility] 02-09-2023 10:39-0400 Diastolic blood pressure 75 mm[Hg] Geronimo Lee MD Work Phone: [facility] 02-09-2023 10:39-0400 Systolic blood pressure 137 mm[Hg] Geronimo Lee MD Work Phone: [facility] 12-08-2020 19:11-0500 BP Diastolic 74 mm[Hg] [facility] [place] [facility] 19:11-0500 BP Systolic 151 mm[Hg] [facility] [place] 12-08-2020 19:11-0500 Pulse (Heart Rate) 70 /min [facility] [place] 12-08-2020 19:11-0500 Pulse Oximetry 98 % [facility] [place] 12-08-2020 19:11-0500 Respiratory Rate 15 /min [facility] [place] 12-08-2020 15:12-0500 Body Temperature 98.71 [degF] [facility] [place] 12-08-2020 15:12-0500 Height 167.6 cm [facility] [place] 11-28-2020 14:37-0500 Body Temperature 97.81 [degF] [facility] [place] 11-28-2020 14:37-0500 BP Diastolic 79 mm[Hg] Joel [facility] 11-28-2020 14:37-0500 BP Systolic 128 mm[Hg] Joel [facility] 11-28-2020 14:37-0500 Pulse (Heart Rate) 75 /min [facility] [place] 11-28-2020 14:37-0500 Pulse Oximetry 95 % Joel [facility] 11-28-2020 14:37-0500 Respiratory Rate 18 /min [facility] [place] 11-27-2020 15:57-0500 [facility]6 [facility] [place] [place] [place] 11-27-2020 06:28-0500 BMI (Body Mass Index) 51.21 kg/m2 Joel Carrizales [facility], [place] 11-27-2020 06:28-0500 Body weight 143.93 kg Joel Carrizales [facility] 09-30-2020 14:21-0500 Body Temperature 98.71 [degF] Art Carrizales [facility] 09-30-2020 14:21-0500 BP Diastolic 61 mm[Hg] Art Carrizales [facility] 09-30-2020 14:21-0500 BP Systolic 115 mm[Hg] Art Carrizales [facility] 09-30-2020 14:21-0500 Pulse (Heart Rate) 107 /min Art Carrizales [facility] 09-30-2020 14:21-0500 Pulse Oximetry 97 % Art Carrizales [facility] 09-30-2020 14:21-0500 Respiratory Rate 18 /min Art Carrizales [facility] 09-30-2020 05:45-0500 BMI (Body Mass Index) 53.34 kg/m2 Art Carrizales [facility] 09-30-2020 05:45-0500 Body weight 149.91 kg Art Carrizales [facility] 09-26-2020 13:28-0500 Height 167.6 cm Art Carrizales [facility] 01-02-2020 12:22-0500 Body Temperature 96.3 [degF] Justin Carrizales [facility] 01-02-2020 12:22-0500 BP Diastolic 80 mm[Hg] Justin Carrizales [facility] 01-02-2020 12:22-0500 BP Systolic 142 mm[Hg] Justin Carrizales [facility] 01-02-2020 12:22-0500 Pulse (Heart Rate) 115 /min Justin Carrizales [facility] 01-02-2020 12:22-0500 Pulse Oximetry 95 % Justin Carrizales [facility] 01-02-2020 12:22-0500 Respiratory Rate 16 /min Justin Carrizales [facility] 01-02-2020 12:15-0500 BMI (Body Mass Index) 54.88 kg/m2 Justincarolyn [place] 01-02-2020 12:15-0500 Body weight 154.22 kg [place] Comment on above: verbal, arrived in own WC, did not know exact weight of 01-02-2020 12:15-0500 Height 167.6 cm Justin [place], [place] 06-27-2019 14:00-0400 BP Diastolic 74 mm[Hg] [place] 06-27-2019 14:00-0400 BP Systolic 123 mm[Hg] [place] 06-27-2019 02:01-0400 Pulse (Heart Rate) 90 /min [place] 06-27-2019 02:01-0400 Pulse Oximetry 100 % [place] 06-27-2019 02:01-0400 Respiratory Rate 17 /min [place] 06-26-2019 21:32-0400 BMI (Body Mass Index) 62.46 kg/m2 [place] 06-26-2019 21:32-0400 Body Temperature 98.01 [degF] [place] 06-26-2019 21:32-0400 Body weight 175.54 kg [place] 06-26-2019 21:32-0400 Height 167.6 cm [place] 06-20-2019 15:37-0400 Body Temperature 100.09 [degF] [place], [place] 06-20-2019 15:37-0400 BP Diastolic 76 mm[Hg] [place] 06-20-2019 15:37-0400 BP Systolic 117 mm[Hg] [place] 06-20-2019 15:37-0400 Pulse (Heart Rate) 107 /min [place] 06-20-2019 15:37-0400 Pulse [facility]xim[facility] 94 [facility] 06-20-2019 15:37-0400 Respiratory Rate 22 /min Dom [facility] [place] 06-19-2019 06:11-0400 BMI (Body Mass Index) 56.31 kg/m2 Dom [facility] [place] 06-19-2019 06:11-0400 Body weight 158.26 kg [facility] [place] 06-14-2019 13:43-0400 Height 167.6 cm [facility] [place] Encounters Encounter Date Encounter Type Care Provider Facility Start: 05-07-2025 End: 05-07-2025 Telephone encounter Kaushal Schultz PA-C Work Phone: [facility] Comment on above: Diabetes (BGL) Start: 04-30-2025 End: 05-01-2025 Telephone encounter [employer] PA-C Work Phone: [facility] Comment on above: Diabetes (BGL) Start: 04-17-2025 End: 04-17-2025 Telephone encounter Kaushal [email or web address] PA-C Work Phone: [facility] Comment on above: Diabetes Start: 04-06-2025 End: 04-06-2025 ambulatory [facility] [employer] [facility] Start: 04-06-2025 End: 04-06-2025 Office outpatient visit 25 minutes [employer] PA-C Work Phone: [facility] Comment on above: Type 2 diabetes lee itus with hyperglycemia, with long-term current use of insulin (HCC) (Primary Dx); Type 2 diabetes mellitus with diabetic autonomic neuropathy, with long-term current use of insulin (HCC); Hypertension associated with type 2 diabetes mellitus (HCC); Mixed diabetic hyperlipidemia associated with type 2 diabetes mellitus (HCC); Class 3 severe obesity due to excess calories with serious comorbidity and body mass index (BMI) of 45.0 to 49.9 in adult; Microalbuminuria Start: 02-27-2025 End: 02-28-2025 Telephone encounter Lisa Lopes APRN - [employer] Work Phone: [facility] Comment on above: Diabetes (BGL) Start: 02-26-2025 End: 02-26-2025 ambulatory Jared LEON [facility] Work Phone: Start: 02-26-2025 End: 02-26-2025 Departed [place] [employer] Start: 02-26-2025 Registered Referred Jared Montoya [employer] Start: 02-26-2025 End: 02-26-2025 ambulatory Jared LEON Facility:[facility] Start: 02-15-2025 End: 02-16-2025 Telephone encounter Margo Guerrero PERSONAL CARE SERVICE PROVIDER - [employer] Work Phone: [facility] Comment on above: Diabetes (BGL) Start: 02-09-2025 End: 02-09-2025 Subsequent hospital visit by physician Alejandro Mandel APRN - [employer]ER Work Phone: [facility] Comment on above: PAD (peripheral oh ry disease) (HCC) Start: 02-09-2025 End: 02-09-2025 [facility] Start: 02-08-2025 End: 02-08-2025 Telephone encounter Herber Ramos APRN - [employer] WORKER Work Phone: [facility] [place] Comment on above: Results (CT chest wo IV contrast ) Start: 02-07-2025 End: 02-08-2025 Telephone encounter Margo Guerrero PERSONAL CARE SERVICE PROVIDER - [employer]ARING [employer] WORKER Work Phone: [facility] Comment on above: Diabetes (BGL) Start: 02-07-2025 End: 02-07-2025 ambulatory Jared LEON [facility] Work Phone: Start: 02-07-2025 End: 02-07-2025 Departed Ref[place] [employer] Start: 02-07-2025 End: 02-07-2025 ambulatory Jared Karely LEON Facility:[facility] Start: 02-01-2025 End: 02-01-2025 ambulatory [place] [facility] Start: 02-01-2025 End: 02-01-2025 Office outpatient new 30 minutes Alejandro Mandel PERSONAL CARE SERVICE PROVIDER - [employer]ING [employer] WORKER Work Phone: [facility] Comment on above: PAD (peripheral oh ry disease) ([facility]) (Primary Dx); Hx of AKA (above knee amputation), right ([facility]); Lymphedema of left leg; Morbid obesity (HCC) Start: 01-29-2025 End: 01-31-2025 Telephone encounter Margo Guerrero PERSONAL CARE SERVICE PROVIDER - [employer]ARING [employer] WORKER Work Phone: [facility] Comment on above: Diabetes (BGL) Start: 01-15-2025 End: 01-22-2025 Telephone encounter Margo Guerrero APRN - [employer] Work Phone: [facility] Comment on above: Diabetes (BGL) Start: 01-01-2025 End: 01-02-2025 Telephone encounter Margo Guerrero APRN - [employer]ING [employer] WORKER Work Phone: [facility] Comment on above: Other (Lab results/B GL) Start: 01-01-2025 End: 01-01-2025 ambulatory MARGO GUERRERO [facility] Start: 01-01-2025 End: 01-01-2025 Office outpatient visit 25 minutes Margo Guerrero PERSONAL CARE SERVICE PROVIDER - [employer]ARING [employer] WORKER Work Phone: [facility] Comment on above: Type 2 diabetes lee itus with hyperglycemia, with long-term current use of insulin ([facility]) (Primary Dx); Type 2 diabetes mellitus with diabetic autonomic neuropathy, with long-term current use of insulin ([facility]); Microalbuminuria; Essential hypertension; Mixed hyperlipidemia; Class 3 severe obesity due to excess calories with serious comorbidity and body mass index (BMI) of 45.0 to 49.9 in adult (HCC) Start: 12-27-2024 End: 12-27-2024 ambulatory Jared Guzman [facility] Work Phone: Start: 12-27-2024 End: 12-27-2024 Departed Referred Jared Guzman [facility] Start: 12-27-2024 End: 12-27-2024 ambulatory Jared LEON Facility:[facility] Start: 12-21-2024 End: 12-21-2024 Office outpatient new 45 minutes Wandara Johnson JEREMY - [employer] Work Phone: [facility] Comment on above: Fecal occult blood t est positive (Primary Dx); History of anemia; Calculus of gallbladder without cholecystitis without obstruction; BMI 50.0-59.9, adult (HCC) Start: 12-21-2024 End: 12-21-2024 ambulatory [facility] Start: 12-20-2024 End: 12-26-2024 Telephone encounter Margo uGerrero APRN - [employer]ARING [employer] WORKER Work Phone: [facility] Comment on above: Diabetes (BGL) Start: 12-07-2024 End: 12-07-2024 Office outpatient visit 25 minutes Lilo Rizo MD Work Phone: [facility] Comment on above: Cholecystitis (Prima ry Dx); Morbid obesity (HCC); Class 3 severe obesity with serious comorbidity and body mass index (BMI) of 50.0 to 59.9 in adult, unspecified obesity type (HCC) Start: 12-07-2024 End: 12-07-2024 ambulatory [facility] Start: 12-05-2024 End: 12-05-2024 ambulatory Jared LEON [facility] Work Phone: Start: 12-05-2024 End: 12-05-2024 Departed Referred Jared Guzman -Preethi [facility] [employer] Start: 12-05-2024 Registered Referred Jared MUNOZ Start: 12-05-2024 End: 12-05-2024 ambulatory Jared LEON Facility:[facility] Start: 11-30-2024 End: 12-01-2024 ambulatory Jared LEON Facility:[facility] Start: 11-30-2024 Registered Referred Jared MUNOZ Start: 11-22-2024 End: 11-22-2024 Telephone encounter Margo Guerrero PERSONAL CARE SERVICE PROVIDER - [employer]ARING [employer] WORKER Work Phone: [facility] Start: 11-21-2024 End: 11-29-2024 Telephone encounter Margo Guerrero PERSONAL CARE SERVICE PROVIDER - [employer]ARING [employer] WORKER Work Phone: [facility] Comment on above: Diabetes (BGL) Start: 11-15-2024 End: 11-20-2024 Telephone encounter Margo Guerrero PERSONAL CARE SERVICE PROVIDER - [employer]ARING [employer] WORKER Work Phone: [facility] Comment on above: Diabetes (BGL) Start: 11-14-2024 End: 11-14-2024 Office outpatient visit 10 minutes Asuncion Valencia PERSONAL CARE SERVICE PROVIDER - SHEARING [employer] WORKER Work Phone: [facility] Comment on above: Cholecystitis (Prima ry Dx) Start: 11-14-2024 End: 11-14-2024 ambulatory ASUNCION [facility] Start: 11-13-2024 End: 11-14-2024 Telephone encounter Josie Powell RN [facility] Comment on above: Care Coordination (E D Nuance Lung Nodule ) Start: 11-12-2024 End: 11-13-2024 Emergency department patient visit Virgil Mederos MD Work Phone: [facility] Comment on above: History of cholecyst itis (Primary Dx) Start: 11-10-2024 End: 11-10-2024 ambulatory ASUNCION [facility] Start: 11-10-2024 End: 11-10-2024 Office outpatient visit 15 minutes Asuncion Valencia PERSONAL CARE SERVICE PROVIDER - SHEARING [employer] WORKER Work Phone: [facility] Comment on above: Cholecystitis (Prima ry Dx) Start: 11-10-2024 End: 11-10-2024 Departed Referred Jared Guzman -[facility] Start: 11-10-2024 End: 11-10-2024 ambulatory Jared Guzman [facility] Facility:[facility] Start: 10-30-2024 End: 10-30-2024 Telephone encounter Анна Mcmahon PERSONAL CARE SERVICE PROVIDER - SHEARING [employer] WORKER Work Phone: [facility] Comment on above: Diabetes (BGL) Start: 10-30-2024 End: 10-30-2024 Departed Referred Jared Guzman [email or web address] Start: 10-30-2024 End: 10-30-2024 ambulatory Jared LEON Facility:[facility] Start: 10-24-2024 End: 10-24-2024 Emergency department patient visit Vicente Mixon MD Work Phone: [facility] Comment on above: Hypoglycemic episode in patient with diabetes mellitus (HCC) (Primary Dx) Start: 10-19-2024 End: 10-20-2024 Telephone encounter Lisa Lopes PERSONAL CARE SERVICE PROVIDER - SHEARING [employer] WORKER Work Phone: [facility] Start: 10-18-2024 End: 10-23-2024 Evaluation and management of inpatient Dontrell Woodall DO Work Phone: [facility]S Comment on above: Acute cholecystitis (Primary Dx) Start: 09-22-2024 End: 09-22-2024 Departed Referred Jared [facility] Start: 09-22-2024 End: 09-22-2024 ambulatory Jared LEON Facility:[facility] Start: 09-19-2024 End: 09-20-2024 Telephone encounter Geronimo Lee MD Work Phone: [facility] Comment on above: Diabetes (BGL) Start: 09-12-2024 End: 09-12-2024 ambulatory Jared LEON Facility:[facility] Start: 09-11-2024 End: 09-12-2024 Telephone encounter Geronimo Lee MD Work Phone: [facility] Comment on above: Diabetes (BGL) Start: 09-11-2024 End: 09-11-2024 ambulatory Jared Esperanzadomo OLS Facility:[facility] Start: 08-08-2024 End: 08-09-2024 Telephone encounter Geronimo Lee MD Work Phone: [facility] Comment on above: Diabetes (BGL) Start: 08-03-2024 End: 08-08-2024 Telephone encounter Geronimo Lee MD Work Phone: [facility] Comment on above: Diabetes (BGL) Start: 08-02-2024 End: 08-02-2024 ambulatory Jared Linnchad OLS Facility:[facility] Start: 07-17-2024 End: 07-18-2024 Telephone encounter Geronimo Lee MD Work Phone: [facility] Comment on above: Diabetes (BGL) Start: 07-17-2024 ambulatory Peter Katsaros OLS Faci lity:[facility] Start: 06-29-2024 ambulatory Peter Katsaros OLS Faci lity:[facility] Start: 06-12-2024 End: 06-12-2024 ambulatory Jared Katsaros OLS Facility:[facility] Start: 05-31-2024 End: 05-31-2024 ambulatory Peter Katsaros OLS Facility:[facility] Start: 05-22-2024 End: 05-22-2024 ambulatory Peter Katsaros OLS Facility:[facility] Start: 05-03-2024 ambulatory Peter Linnsaros OLS Faci lity:[facility] Start: 05-02-2024 End: 05-02-2024 Telephone encounter Ryan Wyatt MA [facility] Endocr[facility] Start: 04-11-2024 End: 04-11-2024 ambulatory KAROL MIXON Facility:[facility] Start: 02-22-2024 Telephone encounter Geronimo ryan MD Work Phone: [facility] Comment on above: Diabetes (BGL) Start: 02-11-2024 End: 05-12-2024 Transcribe Orders Herber Ramos APRN - [employer] WORKER Work Phone: [facility] Central Scheduling Comment on above: Solitary pulmonary n odule (Primary Dx) Start: 02-11-2024 End: 02-11-2024 Office outpatient visit 15 minutes Herber Ramos APRN - [employer] WORKER Work Phone: [facility] Pulmonary Care Comment on above: Lung nodule (Primary Dx); JOHN (obstructive sleep apnea); Morbid obesity with BMI of 45.0-49.9, adult (HCC) Start: 01-27-2024 End: 01-28-2024 Emergency department patient visit Fermin Melchor DO Work Phone: [facility]Y [facility]PT Comment on above: Hypoglycemia (Primar y Dx) Start: 01-26-2024 End: 01-27-2024 Emergency department patient visit Art Zeng DO Work Phone: [facility] Comment on above: Hypoglycemia (Primar y Dx) Start: 01-22-2024 End: 01-22-2024 Emergency department patient visit Jaquan Escobar Alexandra DO Work Phone: [facility] Comment on above: Nausea and vomiting, unspecified vomiting type (Primary Dx); Cystitis Start: 01-20-2024 Telephone encounter Geronimo ryan MD Work Phone: [facility] Clinical Communication Comment on above: Appointment Start: 01-20-2024 End: 01-20-2024 ambulatory [facility] Work Phone: Start: 01-20-2024 End: 01-20-2024 Departed Referred [facility] [employer] Start: 01-20-2024 Registered Referred [facility] [place] [employer] Start: 01-19-2024 Telephone encounter Geronimo ryan MD Work Phone: [facility] Endocrinology Comment on above: Diabetes (BGL) Start: 01-17-2024 End: 01-17-2024 ambulatory [facility] Work Phone: Start: 01-17-2024 End: 01-17-2024 Departed Referred [facility] [employer] Start: 01-17-2024 Registered Referred [facility] [employer] Start: 01-13-2024 End: 01-13-2024 ambulatory [facility] Work Phone: Start: 01-13-2024 End: 01-13-2024 Departed Referred [facility] [employer] Start: 01-13-2024 Registered Referred [facility] Start: 01-03-2024 Telephone encounter Josie Dean [facility] Pulmonary [facility] Sleep Medicine Comment on above: Care Coordination (E D Nuance Lung Nodule ) Start: 12-31-2023 End: 12-31-2023 ambulatory [facility] Work Phone: Start: 12-31-2023 End: 12-31-2023 Departed Referred [facility] Start: 12-30-2023 End: 12-30-2023 ambulatory [facility] Work Phone: Start: 12-30-2023 End: 12-30-2023 Departed Referred [facility] Start: 12-30-2023 Registered Referred [facility] Start: 12-28-2023 End: 12-29-2023 Emergency department patient visit Edwin Bustos MD Work Phone: [facility] EMERGENCY [facility]PT Comment on above: Nausea and vomiting, unspecified vomiting type (Primary Dx) Start: 12-28-2023 Telephone encounter Geronimo ryan MD Work Phone: [facility] Endocrinology Comment on above: Diabetes (BGL) Start: 12-23-2023 End: 12-23-2023 Subsequent hospital visit by physician Elda Reaves (Pa) Work Phone: [facility] Nuclear Medicine Comment on above: Nausea with vomiting , unspecified Start: 12-22-2023 End: 12-22-2023 ambulatory [facility] Work Phone: Start: 12-22-2023 End: 12-22-2023 Departed Referred [facility] Start: 12-22-2023 Registered Referred [facility] [employer] Start: 12-13-2023 ambulatory Leonela Calix RN [facility] Clinical Communication Start: 12-13-2023 Patient encounter procedure Leonela Calix RN [facility] Clinical Communication Start: 12-09-2023 End: 12-09-2023 Emergency department patient visit Caridad Evans MD Work Phone: [facility] Comment on above: Nausea vomiting and diarrhea (Primary Dx); Dehydration Start: 12-06-2023 Telephone encounter Geronimo ryan MD Work Phone: [facility] End[facility] Comment on above: Diabetes (BGL) Start: 11-24-2023 Transcribe Monique Schroeder (Sarah Reaves Work Phone: [facility] Central Scheduling Comment on above: Nausea with vomiting , unspecified (Primary Dx) Start: 11-23-2023 Telephone encounter Geronimo ryan MD Work Phone: [facility] End[facility] Comment on above: Diabetes (BGL) Start: 11-23-2023 End: 11-23-2023 ambulatory [facility] Work Phone: Start: 11-23-2023 End: 11-23-2023 Departed Referred [facility] Start: 11-18-2023 End: 11-18-2023 ambulatory [facility] Work Phone: Start: 11-18-2023 End: 11-18-2023 Departed Referred [facility] Start: 11-18-2023 Registered Referred [facility] Start: 11-17-2023 End: 11-17-2023 ambulatory SARBJIT [facility] Facility:[facility] Start: 11-09-2023 Telephone encounter Geronimo ryan MD Work Phone: [facility] Endocr[facility]ology Comment on above: Advice Only Start: 10-27-2023 End: 10-27-2023 Office outpatient visit 25 minutes Geronimo Lee MD Work Phone: [facility] End[facility] Comment on above: Type 2 diabetes lee itus with hyperglycemia, with long-term current use of insulin (HCC) (Primary Dx); Mixed hyperlipidemia; Primary hypertension Start: 10-26-2023 End: 10-26-2023 ambulatory [facility] Work Phone: Start: 10-26-2023 End: 10-26-2023 Departed Referred [facility] Start: 10-07-2023 End: 10-07-2023 Subsequent hospital visit by physician [facility] Exam Room [address] [facility] Comment on above: Arrived Start: 10-07-2023 End: 10-17-2023 Evaluation and management of inpatient Rosaura Mustafa DO Work Phone: [facility] CPI PCU 4W Start: 09-20-2023 Telephone encounter Geronimo ryan MD Work Phone: [facility] [employer] [facility] Endocrinology Comment on above: Diabetes (BGL) Start: 09-20-2023 End: 09-20-2023 Departed Referred [facility] Start: 08-30-2023 Telephone encounter Geronimo ryan MD Work Phone: [facility] [employer] [facility] Endocrinology Comment on above: Diabetes (BGL) Start: 08-17-2023 End: 08-19-2023 Emergency department patient visit Aaron Burgos DO Work Phone: [facility] Surgical [facility] MSU 1E Comment on above: Upper abdominal pain (Primary Dx); Hypoglycemia Start: 08-17-2023 End: 08-17-[address] [facility] Work Phone: Start: 08-17-2023 End: 08-17-2023 Departed Referred [facility] Start: 08-11-2023 Telephone encounter Geronimo ryan MD Work Phone: [facility] [employer] [facility] Endocrinology Comment on above: Diabetes (BGL) Start: 08-08-2023 End: 08-08-2023 Emergency department patient visit Gayle Trevizo MD Work Phone: [facility] Comment on above: Pyelonephritis (Prim valeria Dx); Upper abdominal pain; Nausea Start: 08-04-2023 End: 08-04-2023 ambulatory [facility] Work Phone: Start: 08-04-2023 End: 08-04-2023 Departed Referred [facility] Start: 08-02-2023 End: 08-02-2023 Departed Referred [facility] Start: 08-02-2023 Registered Referred [facility] Start: 07-05-2023 Telephone encounter Geronimo ryan MD Work Phone: [facility] End[facility] Comment on above: Care Coordination (E D Nuance Lung Nodule ) Care Coordination (E D [facility] Lung Nodule/Resp consult for lung nodule) Start: 07-05-2023 End: 07-05-2023 ambulatory [facility] Work Phone: Start: 07-05-2023 End: 07-05-2023 Departed Referred [facility] Start: 06-29-2023 End: 06-29-2023 Evaluation and management of inpatient Art Palmer MD Work Phone: [facility] Start: 06-28-2023 End: 07-01-2023 Emergency department patient visit Rosaura Guilherme BERMEO Work Phone: [facility] 2E TELEMETRY Comment on above: Chest pain, unspecif ied type (Primary Dx) Start: 06-22-2023 Telephone encounter Geronimo ryan MD Work Phone: [facility] End[facility] Comment on above: Diabetes (BGL) Start: 05-31-2023 End: 05-31-2023 Departed Referred [facility] Start: 05-31-2023 Registered Referred [facility] Start: 05-17-2023 Telephone encounter Geronimo ryan MD Work Phone: [facility] Comment on above: Diabetes (BGL) Start: 05-05-2023 Telephone encounter Geronimo ryan MD Work Phone: [facility] End[facility] Comment on above: Diabetes (BGL) Start: 04-19-2023 End: 04-19-2023 ambulatory [facility] Work Phone: Start: 04-19-2023 End: 04-19-2023 Departed Referred [facility] Start: 03-30-2023 End: 03-30-2023 ambulatory [facility] Work Phone: Start: 03-30-2023 End: 03-30-2023 Departed Referred [facility] Start: 03-15-2023 End: 03-15-2023 Departed Referred [facility] Start: 03-08-2023 End: 03-08-2023 Emergency department patient visit Karlos Osborn DO Work Phone: [facility] Comment on above: Abdominal pain, gene ralized (Primary Dx); Gastroparesis Start: 02-25-2023 Telephone encounter Geronimo ryan MD Work Phone: [facility] End[facility] Comment on above: Diabetes (BGL) Start: 02-09-2023 End: 02-09-2023 Office outpatient visit 25 minutes Geronimo Lee MD Work Phone: [facility] Comment on above: Type 2 diabetes lee itus with hyperglycemia, with long-term current use of insulin ([facility]/HCC) (HCC) (Primary Dx); Mixed hyperlipidemia; Primary hypertension Start: 01-26-2023 Transcribe Orders Jared moyer Work Phone: [facility]ician Referral [facility] Start: 01-13-2023 End: 01-13-2023 ambulatory [facility] Work Phone: Start: 01-13-2023 End: 01-13-2023 Departed Referred [facility] Start: 12-02-2022 End: 12-02-2022 ambulatory [facility] Work Phone: Start: 12-02-2022 End: 12-02-2022 Departed Referred [facility] Start: 10-27-2022 End: 10-27-2022 ambulatory [facility] Work Phone: Start: 10-27-2022 End: 10-27-2022 Departed Referred [facility] [employer] Start: 06-24-2022 End: 06-24-2022 ambulatory [facility] Work Phone: Start: 06-24-2022 End: 06-24-2022 Departed [facility]erred [facility] [employer] Start: 05-25-2022 End: 05-25-2022 Departed Referred [facility] Start: 04-27-2022 End: 04-27-2022 Departed Referred [facility] [employer] Start: 04-13-2022 End: 04-13-2022 Departed Referred [facility] Start: 04-13-2022 Registered Referred [facility] [employer] Start: 03-02-2022 End: 03-02-2022 Departed Referred [facility] [employer] Start: 01-29-2022 End: 01-29-2022 Departed Referred [facility] [employer] Start: 01-29-2022 Registered Referred [facility] [employer] Start: 01-19-2022 End: 01-19-2022 Departed Referred [facility] [employer] Start: 01-19-2022 Registered Referred [facility] [place] Start: 12-08-2020 End: 12-08-2020 Emergency department patient visit Art Zeng Work Phone: [facility] Comment on above: Bacterial urinary in fection (Primary Dx); Non-intractable vomiting with nausea, unspecified vomiting type; Abdominal pain, unspecified abdominal location Start: 11-22-2020 End: 11-28-2020 Evaluation and management of inpatient Joel Nelson Work Phone: [facility] Comment on above: Hypoglycemia (Primar y Dx); Nausea Start: 09-17-2020 End: 09-30-2020 Evaluation and management of inpatient Art Zeng Work Phone: [facility] Comment on above: Ileus (HCC) (Primary Dx); Nausea and vomiting, intractability of vomiting not specified, unspecified vomiting type; Generalized abdominal pain Start: 01-02-2020 End: 01-02-2020 Subsequent hospital visit by physician Justin Walsh Work Phone: [facility] Pre-Admit [facility] Comment on above: Arrived Start: 06-26-2019 End: 06-27-2019 Emergency department patient visit Davie Blank Work Phone: [facility] Comment on above: Amputation stump inf ection (HCC) (Primary Dx) Start: 06-14-2019 End: 06-20-2019 Evaluation and management of inpatient Dom Ortiz Work Phone: [facility] Comment on above: Diabetic foot infect ion (HCC) (Primary Dx); Lactic acidosis; Morbid obesity (HCC) Start: 01-03-2019 End: 01-03-2019 Patient encounter procedure [facility] Start: 12-27-2018 End: 12-27-2018 Patient encounter procedure [facility] Start: 07-12-2018 End: 07-12-2018 Patient encounter procedure [facility] Start: 06-28-2018 End: 06-28-2018 Patient encounter procedure [facility] Start: 06-14-2018 End: 06-14-2018 Patient encounter procedure [facility] Start: 05-04-2018 Ambulatory [facility] Fac[facility] ty:[facility] Start: 04-28-2018 End: 05-06-2018 Evaluation and management of inpatient [facility] Start: 03-18-2018 Ambulatory [facility] ty[facility] Start: 03-15-2018 End: 03-21-2018 Evaluation and management of inpatient [facility] Start: 02-02-2018 End: 02-08-2018 Evaluation and management of inpatient [facility] Procedures Date Procedure Procedure Detail Performing Clinician Start: 04-06-2025 Hemoglobin glycosylated a1c Kaushal Schultz PA-C Work Phone: Start: 04-06-2025 Follow-up visit JARED GUZMAN Start: 02-26-2025 Serum inorganic phosphate measurement Jared LEON Start: 02-09-2025 Non-invasive physiologic study extremity 3 niki Mandel [employer] Work Phone: Start: 02-01-2025 Follow-up visit JARED GUZMAN Start: 01-01-2025 Follow-up visit JARED GUZMAN Start: 12-27-2024 Measurement of renal function Jared LEON Comment on above: GFR Calc Start: 12-21-2024 Follow-up visit JARED GUZMAN Start: 12-07-2024 Follow-up visit JARED GUZMAN Start: 11-14-2024 Follow-up visit Follow-up ASUNCION BLACK Start: 11-12-2024 Basic metabolic panel calcium total Ramsey Carleen [employer] Work Phone: Start: 11-12-2024 Ct abdomen & pelvis w/o contrast material Ramsey Apodaca [employer] Work Phone: Start: 11-10-2024 Urine culture Jared LEON Start: 11-10-2024 Follow-up visit JARED ESTEVESCHAD Start: 10-24-2024 Urinalysis complete panel - Urine Baldev alexis MD Work Phone: Start: 10-24-2024 Urnls dip stick/tablet reagent auto microscopy Baldev Ortiz MD Work Phone: Start: 10-24-2024 End: 10-24-2024 Comprehensive metabolic panel Baldev Ortiz MD Work Phone: Start: 10-24-2024 Ecg routine ecg w/least 12 lds trcg only w/o i&r Baldev Ortiz MD Work Phone: Start: 10-23-2024 Glucose quantitative blood xcpt reagent strip Álvaro Thomas MD Work Phone: Start: 10-23-2024 Glucose quantitative blood xcpt reagent strip Ávlaro Thomas MD Work Phone: Start: 10-23-2024 Glucose quantitative blood xcpt reagent strip Álvaro Thomas MD Work Phone: Start: 10-23-2024 Comprehensive metabolic panel Álvaro wellington MD Work Phone: Start: 10-22-2024 Glucose quantitative blood xcpt reagent strip Álvaro Thomas MD Work Phone: Start: 10-22-2024 Glucose quantitative blood xcpt reagent strip Álvaro Thomas MD Work Phone: Start: 10-22-2024 End: 10-22-2024 Glucose quantitative blood xcpt reagent strip Álvaro Thomas MD Work Phone: Start: 10-22-2024 Glucose quantitative blood xcpt reagent strip Álvaro Thomas MD Work Phone: Start: 10-22-2024 Comprehensive metabolic panel Álvaro wellington MD Work Phone: Start: 10-21-2024 Glucose quantitative blood xcpt reagent strip Álvaro Thomas MD Work Phone: Start: 10-21-2024 Glucose quantitative blood xcpt reagent strip Álvaro Thomas MD Work Phone: Start: 10-21-2024 Glucose quantitative blood xcpt reagent strip Álvaro Thomas MD Work Phone: Start: 10-21-2024 Glucose quantitative blood xcpt reagent strip Álvaro Thomas MD Work Phone: Start: 10-21-2024 Glucose quantitative blood xcpt reagent strip Álvaro Thomas MD Work Phone: Start: 10-21-2024 Comprehensive metabolic panel Álvaro wellington MD Work Phone: Start: 10-20-2024 Glucose quantitative blood xcpt reagent strip Álvaro Thomas MD Work Phone: Start: 10-20-2024 Glucose quantitative blood xcpt reagent strip Álvaro Thomas MD Work Phone: Start: 10-20-2024 Glucose quantitative blood xcpt reagent strip Álvaro Thomas MD Work Phone: Start: 10-20-2024 Glucose quantitative blood xcpt reagent strip Álvaro Thomas MD Work Phone: Start: 10-20-2024 C-reactive protein Shawn Farias MD Work Phone: Start: 10-20-2024 Comprehensive metabolic panel Álvaro wellington MD Work Phone: Start: 10-19-2024 Glucose quantitative blood xcpt reagent strip Álvaro Thomas MD Work Phone: Start: 10-19-2024 Glucose quantitative blood xcpt reagent strip Álvaro Thomas MD Work Phone: Start: 10-19-2024 Culture bacterial any source anaerobic iso&id Álvaro Thomas MD Work Phone: Start: 10-19-2024 Img-guide fluid collxn drainag cath periton perq Deborah Crespo PA Work Phone: Start: 10-19-2024 Culture bacterial any source anaerobic iso&id Deborah Crespo PA Work Phone: Start: 10-19-2024 Prothrombin time Alfredito Baumann MD Work Phone: Start: 10-19-2024 Glucose quantitative blood xcpt reagent strip Álvaro Thomas MD Work Phone: Start: 10-19-2024 Glucose quantitative blood xcpt reagent strip Álvaro Thomas MD Work Phone: Start: 10-19-2024 End: 10-19-2024 Comprehensive metabolic panel Grace Ackerman MD Work Phone: Start: 10-19-2024 Manual Differential panel - Blood Grace leavitt MD Work Phone: Start: 10-19-2024 Blood occult peroxidase actv qual feces 1-3 spec Grace Ackerman MD Work Phone: Start: 10-18-2024 Culture bacterial quanttative colony count urine Dontrell Woodall DO Work Phone: Start: 10-18-2024 Urinalysis complete panel - Urine Grace leavitt MD Work Phone: Start: 10-18-2024 End: 10-18-2024 Assay of lactate Grace Ackerman MD Work Phone: Start: 10-18-2024 Us abdominal real time w/image limited Dontrell Woodall DO Work Phone: Start: 10-18-2024 Assay of troponin quantitative Dontrell ramirez DO Work Phone: Start: 10-18-2024 Ct abdomen & pelvis w/contrast material Dontrell Woodall DO Work Phone: Start: 10-18-2024 Ct angiography chest w/contrast/noncontrast Dontrell Woodall DO Work Phone: Start: 10-18-2024 Comprehensive metabolic panel Dontrell west DO Work Phone: Start: 10-18-2024 Manual differential performed [Presence] in Blood Dontrell Woodall DO Work Phone: Start: 10-18-2024 Ecg routine ecg w/least 12 lds trcg only w/o i&r Dontrell Woodall DO Work Phone: Start: 01-27-2024 Glucose quantitative blood xcpt reagent strip Generic Provider Poct Start: 01-26-2024 End: 01-26-2024 Glucose quantitative blood xcpt reagent strip Art Zeng DO Work Phone: Start: 01-22-2024 Ct abdomen & pelvis w/contrast material Jaquan Morris DO Work Phone: Start: 01-22-2024 Urinalysis complete panel - Urine Del Morris DO Work Phone: Start: 01-22-2024 Urnls dip stick/tablet reagent auto microscopy Jaquan Morris DO Work Phone: Start: 01-22-2024 Comprehensive metabolic panel Jaquan Morris DO Work Phone: Start: 12-29-2023 End: 12-29-2023 Basic metabolic panel calcium total Ramsey R Rice DO Work Phone: Start: 12-29-2023 Glucose quantitative blood xcpt reagent strip Edwin Bustos MD Work Phone: Start: 12-29-2023 Glucose quantitative blood xcpt reagent strip Edwin Bustos MD Work Phone: Start: 12-28-2023 Basic metabolic panel calcium total Ramsey Zavaleat DO Work Phone: Start: 12-28-2023 Ecg routine ecg w/least 12 lds trcg only w/o i&r Ramsey Zavaleta DO Work Phone: Start: 12-23-2023 Gastric emptying imaging study Elda Reaves ( Pa) Work Phone: Start: 12-09-2023 Urinalysis complete panel - Urine Caridad Evans MD Work Phone: Start: 12-09-2023 Urnls dip stick/tablet reagent auto microscopy Caridad Evans MD Work Phone: Start: 12-09-2023 Assay of troponin quantitative Caridad Byers MD Work Phone: Start: 12-09-2023 Ecg routine ecg w/least 12 lds trcg only w/o i&r Caridad Evans MD Work Phone: Start: 12-09-2023 Radiologic exam chest single view Caridad Evans MD Work Phone: Start: 12-09-2023 Blood gases any combination ph pco2 po2 co2 hco3 Caridad Evans MD Work Phone: Start: 12-09-2023 End: 12-09-2023 Comprehensive metabolic panel Caridad Chauhan MD Work Phone: Start: 12-09-2023 SARS-COV-2, FLU A/B, AND RSV COMBO Fareed Evans MD Work Phone: Start: 10-16-2023 Glucose quantitative blood xcpt reagent strip Marcio Armando MD Work Phone: Start: 10-16-2023 Glucose quantitative blood xcpt reagent strip Marcio Armando MD Work Phone: Start: 10-16-2023 Glucose quantitative blood xcpt reagent strip Marcio Armando MD Work Phone: Start: 10-16-2023 Glucose quantitative blood xcpt reagent strip Marcio Armando MD Work Phone: Start: 10-15-2023 Glucose quantitative blood xcpt reagent strip Marcio Armando MD Work Phone: Start: 10-15-2023 Glucose quantitative blood xcpt reagent strip Marcio Armando MD Work Phone: Start: 10-15-2023 Glucose quantitative blood xcpt reagent strip Marcio Armando MD Work Phone: Start: 10-15-2023 POCT GLUCOSE METER UNSOLICITED RESULTS Marcio Armando MD Work Phone: Start: 10-15-2023 Glucose quantitative blood xcpt reagent strip Marcio Armando MD Work Phone: Start: 10-15-2023 POCT GLUCOSE METER UNSOLICITED RESULTS Marcio Armando MD Work Phone: Start: 10-14-2023 Glucose quantitative blood xcpt reagent strip Marcio Armando MD Work Phone: Start: 10-14-2023 Glucose quantitative blood xcpt reagent strip Marcio Armando MD Work Phone: Start: 10-14-2023 Glucose quantitative blood xcpt reagent strip Marcio Armando MD Work Phone: Start: 10-14-2023 Glucose quantitative blood xcpt reagent strip Marcio Armando MD Work Phone: Start: 10-14-2023 Basic metabolic panel calcium total Marcio Armando MD Work Phone: Start: 10-14-2023 Glucose quantitative blood xcpt reagent strip Marcio Armando MD Work Phone: Start: 10-13-2023 End: 10-13-2023 Glucose quantitative blood xcpt reagent strip Marcio Armando MD Work Phone: Start: 10-13-2023 Glucose quantitative blood xcpt reagent strip Marcio Armando MD Work Phone: Start: 10-13-2023 Glucose quantitative blood xcpt reagent strip Marcio Armando MD Work Phone: Start: 10-13-2023 Glucose quantitative blood xcpt reagent strip Marcio Armando MD Work Phone: Start: 10-13-2023 Glucose quantitative blood xcpt reagent strip Marcio Armando MD Work Phone: Start: 10-13-2023 Basic metabolic panel calcium total Marcio Armando MD Work Phone: Start: 10-12-2023 Glucose quantitative blood xcpt reagent strip Marcio Armando MD Work Phone: Start: 10-12-2023 Glucose quantitative blood xcpt reagent strip Marcio Armando MD Work Phone: Start: 10-12-2023 Glucose quantitative blood xcpt reagent strip Marcio Armando MD Work Phone: Start: 10-12-2023 Radiologic exam chest single view Abbey Askew MD Work Phone: Start: 10-12-2023 Insertion picc w/rs&i 5 yr/> Funmi hollis MD Work Phone: Start: 10-12-2023 Glucose quantitative blood xcpt reagent strip Marcio Armando MD Work Phone: Start: 10-12-2023 Glucose quantitative blood xcpt reagent strip Marcio Armando MD Work Phone: Start: 10-12-2023 Glucose quantitative blood xcpt reagent strip Marcio Armando MD Work Phone: Start: 10-12-2023 Basic metabolic panel calcium total Marcio Armando MD Work Phone: Start: 10-11-2023 Glucose quantitative blood xcpt reagent strip Marcio Armando MD Work Phone: Start: 10-11-2023 End: 10-11-2023 Glucose quantitative blood xcpt reagent strip Marcio Armando MD Work Phone: Start: 10-11-2023 End: 10-11-2023 POCT GLUCOSE METER UNSOLICITED RESULTS Marcio Armando MD Work Phone: Start: 10-11-2023 Glucose quantitative blood xcpt reagent strip Marcio Armando MD Work Phone: Start: 10-11-2023 Glucose quantitative blood xcpt reagent strip Marcio Armando MD Work Phone: Start: 10-11-2023 Comprehensive metabolic panel Ricardo marshall MD Work Phone: Start: 10-11-2023 Glucose quantitative blood xcpt reagent strip Mayda Olmstead MD Work Phone: Start: 10-10-2023 Glucose quantitative blood xcpt reagent strip Mayda Olmstead MD Work Phone: Start: 10-10-2023 Glucose quantitative blood xcpt reagent strip Mayda Olmstead MD Work Phone: Start: 10-10-2023 Glucose quantitative blood xcpt reagent strip Mayda Olmstead MD Work Phone: Start: 10-10-2023 Glucose quantitative blood xcpt reagent strip Mayda Olmstead MD Work Phone: Start: 10-10-2023 Glucose quantitative blood xcpt reagent strip Mayda Olmstead MD Work Phone: Start: 10-10-2023 End: 10-10-2023 Glucose quantitative blood xcpt reagent strip Mayda Olmstead MD Work Phone: Start: 10-10-2023 Glucose quantitative blood xcpt reagent strip Mayda Olmstead MD Work Phone: Start: 10-10-2023 End: 10-10-2023 Glucose quantitative blood xcpt reagent strip Mayda Olmstead MD Work Phone: Start: 10-10-2023 End: 10-10-2023 POCT GLUCOSE METER UNSOLICITED RESULTS Mayda Olmstead MD Work Phone: Start: 10-09-2023 Glucose quantitative blood xcpt reagent strip Mayda Olmstead MD Work Phone: Start: 10-09-2023 Glucose quantitative blood xcpt reagent strip Mayda Olmstead MD Work Phone: Start: 10-09-2023 End: 10-09-2023 Glucose quantitative blood xcpt reagent strip Mayda Olmstead MD Work Phone: Start: 10-09-2023 Bacteria identified in Blood by Culture Skylar Larkin PA-C Work Phone: Start: 10-09-2023 Glucose quantitative blood xcpt reagent strip Mayda Olmstead MD Work Phone: Start: 10-09-2023 Glucose quantitative blood xcpt reagent strip Mayda Olmstead MD Work Phone: Start: 10-09-2023 Basic metabolic panel calcium total Mayda Olmstead MD Work Phone: Start: 10-09-2023 Glucose quantitative blood xcpt reagent strip Mayda Olmstead MD Work Phone: Start: 10-09-2023 Drug screen quantitative vancomycin Rachael Robertson PERSONAL CARE SERVICE PROVIDER - [employer] Work Phone: Start: 10-09-2023 End: 10-09-2023 Hemoglobin glycosylated a1c Amrita Garcia MD Work Phone: Start: 10-08-2023 Glucose quantitative blood xcpt reagent strip Mayda Olmstead MD Work Phone: Start: 10-08-2023 Us abdominal real time w/image limited Mayda Olmstead MD Work Phone: Start: 10-08-2023 Glucose quantitative blood xcpt reagent strip Mayda Olmstead MD Work Phone: Start: 10-08-2023 Iadna s aureus methicillin resist amp probe tq Mayda Olmstead MD Work Phone: Start: 10-08-2023 Glucose quantitative blood xcpt reagent strip Mayda Olmstead MD Work Phone: Start: 10-08-2023 Ct abdomen & pelvis w/contrast material Rachael Robertson PERSONAL CARE SERVICE PROVIDER - [employer] Work Phone: Start: 10-08-2023 Glucose quantitative blood xcpt reagent strip Mayda Olmstead MD Work Phone: Start: 10-08-2023 Basic metabolic panel calcium total Rachael Robertson PERSONAL CARE SERVICE PROVIDER - [employer] Work Phone: Start: 10-07-2023 Glucose quantitative blood xcpt reagent strip Ricardo Spring MD Work Phone: Start: 10-07-2023 Procalcitonin (pct) Rachael Robertson PERSONAL CARE SERVICE PROVIDER - [employer] Work Phone: Start: 10-07-2023 Glucose quantitative blood xcpt reagent strip Ricardo Spring MD Work Phone: Start: 10-07-2023 End: 10-07-2023 Glucose quantitative blood xcpt reagent strip Rosaura Mustafa DO Work Phone: Start: 10-07-2023 Culture bacterial quanttative colony count urine Rosaura Mustafa DO Work Phone: Start: 10-07-2023 Drug tst prsmv instrmnt chem analyzers pr date Rachael Robertson P[employer]ARE SERVICE PROVIDER - [employer] Work Phone: Start: 10-07-2023 Urinalysis complete panel - Urine Giuseppe Mustafa DO Work Phone: Start: 10-07-2023 Respiratory pathogens DNA and RNA panel - Nasopharynx by YASIR with non-probe detection Rosaura Mustafa DO Work Phone: Start: 10-07-2023 End: 10-07-2023 Glucose quantitative blood xcpt reagent strip Rosaura Mustafa DO Work Phone: Start: 10-07-2023 Glucose quantitative blood xcpt reagent strip Rosaura Mustafa DO Work Phone: Start: 10-07-2023 End: 10-07-2023 POCT GLUCOSE METER Rosaura Mustafa DO Work Phone: Start: 10-07-2023 Bacteria identified in Blood by Culture Rosaura Mustafa DO Work Phone: Start: 10-07-2023 HC CUL TYP ID BLD PTHGN 6+ TRGT Rosaura Mustafa DO Work Phone: Start: 10-07-2023 End: 10-07-2023 Glucose quantitative blood xcpt reagent strip Rosaura Mustafa DO Work Phone: Start: 10-07-2023 Radiologic exam chest single view Giuseppe dean Guilherme DO Work Phone: Start: 10-07-2023 Ct head/brain w/o contrast material Rosaura Mustafa DO Work Phone: Start: 10-07-2023 Bacteria identified in Blood by Culture Rosaura Mustafa DO Work Phone: Start: 10-07-2023 End: 10-07-2023 Comprehensive metabolic panel Rosaura Vu justa DO Work Phone: Start: 10-07-2023 Drug test def 1-7 classes Rachael Herman son PERSONAL CARE SERVICE PROVIDER - [employer] Work Phone: Start: 08-19-2023 Glucose quantitative blood xcpt reagent strip Nabil M Esterle DO Work Phone: Start: 08-19-2023 Glucose quantitative blood xcpt reagent strip Nabil M Esterle DO Work Phone: Start: 08-19-2023 Glucose quantitative blood xcpt reagent strip Nabil M Esterle DO Work Phone: Start: 08-19-2023 Basic metabolic panel calcium total Nabil M Esterle DO Work Phone: Start: 08-18-2023 Glucose quantitative blood xcpt reagent strip Nabil M Esterle DO Work Phone: Start: 08-18-2023 Glucose quantitative blood xcpt reagent strip Nabil M Esterle DO Work Phone: Start: 08-18-2023 Glucose quantitative blood xcpt reagent strip Aaron A Gombash DO Work Phone: Start: 08-18-2023 Glucose quantitative blood xcpt reagent strip Aaron A Gombash DO Work Phone: Start: 08-18-2023 Basic metabolic panel calcium total Nabil M Esterle DO Work Phone: Start: 08-17-2023 Glucose quantitative blood xcpt reagent strip Aaron A Gombash DO Work Phone: Start: 08-17-2023 Urinalysis complete panel - Urine Aaron Burgos DO Work Phone: Start: 08-17-2023 Urnls dip stick/tablet reagent auto microscopy Aaron Burgos DO Work Phone: Start: 08-17-2023 Ecg routine ecg w/least 12 lds trcg only w/o i&r Brandon Leblanc DO Work Phone: Start: 08-17-2023 POCT GLUCOSE METER Brandon Leblanc DO Work Phone: Start: 08-17-2023 End: 08-17-2023 Glucose quantitative blood xcpt reagent strip Aaron Burgos DO Work Phone: Start: 08-17-2023 POCT GLUCOSE METER UNSOLICITED RESULTS Aaron Burgos DO Work Phone: Start: 08-17-2023 Ct abdomen & pelvis w/contrast material Aaron Burgos DO Work Phone: Start: 08-17-2023 Comprehensive metabolic panel Aaron gutierrez DO Work Phone: Start: 08-08-2023 Urinalysis complete panel - Urine Gayle Trevizo MD Work Phone: Start: 08-08-2023 Urnls dip stick/tablet reagent auto microscopy Gayle Trevizo MD Work Phone: Start: 08-08-2023 Ct abdomen & pelvis w/contrast material Ezio Kelley DO Work Phone: Start: 08-08-2023 Radiologic exam chest single view Ezio Kelley DO Work Phone: Start: 08-08-2023 Ecg routine ecg w/least 12 lds trcg only w/o i&r Ezio Kelley DO Work Phone: Start: 08-08-2023 Blood gases any combination ph pco2 po2 co2 hco3 Gayle Trevizo MD Work Phone: Start: 08-08-2023 End: 08-08-2023 Basic metabolic panel calcium total Ezio Kelley DO Work Phone: Start: 07-01-2023 Glucose quantitative blood xcpt reagent strip Nabil M Esterle DO Work Phone: Start: 07-01-2023 Glucose quantitative blood xcpt reagent strip Nabil M Esterle DO Work Phone: Start: 06-30-2023 Glucose quantitative blood xcpt reagent strip Nabil M Esterle DO Work Phone: Start: 06-30-2023 Glucose quantitative blood xcpt reagent strip Nabil M Esterle DO Work Phone: Start: 06-30-2023 Glucose quantitative blood xcpt reagent strip Nabil M Esterle DO Work Phone: Start: 06-30-2023 Glucose quantitative blood xcpt reagent strip Nabil M Esterle DO Work Phone: Start: 06-29-2023 Glucose quantitative blood xcpt reagent strip Nabil M Esterle DO Work Phone: Start: 06-29-2023 Glucose quantitative blood xcpt reagent strip Nabil M Esterle DO Work Phone: Start: 06-29-2023 Glucose quantitative blood xcpt reagent strip Nabil M Esterle DO Work Phone: Start: 06-29-2023 End: 06-29-2023 Esophagogastroduodenoscopy transoral diagnostic Sergio Sibley DO Work Phone: Start: 06-29-2023 Glucose quantitative blood xcpt reagent strip Nabil M Esterle DO Work Phone: Start: 06-29-2023 Ecg routine ecg w/least 12 lds trcg only w/o i&r Nabil M Esterle DO Work Phone: Start: 06-29-2023 Comprehensive metabolic panel Nabil M Est erle DO Work Phone: Start: 06-28-2023 Glucose quantitative blood xcpt reagent strip Nabil M Esterle DO Work Phone: Start: 06-28-2023 Glucose quantitative blood xcpt reagent strip Nabil M Esterle DO Work Phone: Start: 06-28-2023 End: 06-28-2023 Assay of troponin quantitative Nabil lewis DO Work Phone: Start: 06-28-2023 Glucose quantitative blood xcpt reagent strip Ramsey Mc MD Work Phone: Start: 06-28-2023 Ct angiography chest w/contrast/noncontrast Rosaura Mustafa DO Work Phone: Start: 06-28-2023 Radiologic exam chest single view Giuseppe dean Mustafa DO Work Phone: Start: 06-28-2023 Basic metabolic panel calcium total Rosaura Mustafa DO Work Phone: Start: 06-28-2023 Ecg routine ecg w/least 12 lds trcg only w/o i&r Rosaura Guilherme DO Work Phone: Start: 03-08-2023 Ct abdomen & pelvis w/o contrast material Jocelyn Santos MD Work Phone: Start: 03-08-2023 End: 03-08-2023 Comprehensive metabolic panel Jocelyn perez MD Work Phone: Start: 02-09-2023 Lipid 1996 panel - Serum or Plasma Geronimo Lee MD Work Phone: Start: 12-08-2020 Ecg routine ecg w/least 12 lds w/i&r Art Peraltakemi Work Phone: Start: 12-08-2020 Urnls dip stick/tablet rgnt auto w/o microscopy Art Peraltakemi Work Phone: Start: 12-08-2020 Us abdominal real time w/image limited Art Peraltakemi Work Phone: Start: 12-08-2020 Radiologic exam chest single view Diamond Peraltakemi Work Phone: Start: 12-08-2020 Assay of lipase Art Zeng Work Phone: Start: 12-08-2020 Assay of troponin quantitative Art Zeng Work Phone: Start: 12-08-2020 Blood count complete auto&auto difrntl wbc Art Zeng Work Phone: Start: 12-08-2020 Comprehensive metabolic panel Art Zeng Work Phone: Start: 11-28-2020 Gluc bld gluc mntr dev cleared fda spec home use Gabo A Estrada Work Phone: Start: 11-28-2020 Gluc bld gluc mntr dev cleared fda spec home use Gabo A Estrada Work Phone: Start: 11-28-2020 Radiologic exam abdomen 1 view Mhd Teddy d Nipendo Work Phone: Start: 11-28-2020 Gluc bld gluc mntr dev cleared fda spec home use Gabo A Estrada Work Phone: Start: 11-28-2020 Comprehensive metabolic panel Leonela Guerrero Work Phone: Start: 11-27-2020 Gluc bld gluc mntr dev cleared fda spec home use Gabo A Estrada Work Phone: Start: 11-27-2020 Gluc bld gluc mntr dev cleared fda spec home use Gabo A Estrada Work Phone: Start: 11-27-2020 Gluc bld gluc mntr dev cleared fda spec home use Gabo A Estrada Work Phone: Start: 11-27-2020 Radiologic exam abdomen 1 view Mhd Teddy acevedo Almoselli Work Phone: Start: 11-27-2020 Gluc bld gluc mntr dev cleared fda spec home use Gabo A Estrada Work Phone: Start: 11-27-2020 Comprehensive metabolic panel Leonela Guerrero Work Phone: Start: 11-26-2020 Gluc bld gluc mntr dev cleared fda spec home use Gabo A Estrada Work Phone: Start: 11-26-2020 Assay of troponin quantitative Gabo A L azo Work Phone: Start: 11-26-2020 Ecg routine ecg w/least 12 lds w/i&r Gabo Estrada Work Phone: Start: 11-26-2020 Gluc bld gluc mntr dev cleared fda spec home use Gabo Estrada Work Phone: Start: 11-26-2020 Glucose quantitative blood xcpt reagent strip Gabo Estrada Work Phone: Start: 11-26-2020 OPERATIVE REPORT 3m Scanning Start: 11-26-2020 Gluc bld gluc mntr dev cleared fda spec home use Gabo Estrada Work Phone: Start: 11-26-2020 Level iv surg pathology gross&microscopic exam Virgil Marshall Work Phone: Start: 11-26-2020 Gluc bld gluc mntr dev cleared fda spec home use Gabo Estrada Work Phone: Start: 11-26-2020 Assay of thyroid stimulating hormone tsh Анна Villela Work Phone: Start: 11-25-2020 Gluc bld gluc mntr dev cleared fda spec home use Gabo Estrada Work Phone: Start: 11-25-2020 Gluc bld gluc mntr dev cleared fda spec home use Art Stapleton Work Phone: Start: 11-25-2020 Radiologic exam abdomen 1 view Art Stapleton Work Phone: Start: 11-25-2020 Gluc bld gluc mntr dev cleared fda spec home use Art Stapleton Work Phone: Start: 11-25-2020 Us transvaginal Jakob C Frances Work Phone: Start: 11-25-2020 Gluc bld gluc mntr dev cleared fda spec home use Art Stapleton Work Phone: Start: 11-25-2020 Blood count complete auto&auto difrntl wbc Kylah David Work Phone: Start: 11-25-2020 End: 11-26-2020 Comprehensive metabolic panel Leonela Guerrero Work Phone: Start: 11-24-2020 Assay of troponin quantitative Kylah robles Work Phone: Start: 11-24-2020 Gluc bld gluc mntr dev cleared fda spec home use Art Rosado Pieter Work Phone: Start: 11-24-2020 Assay of troponin quantitative Kylah robles Work Phone: Start: 11-24-2020 Gluc bld gluc mntr dev cleared fda spec home use Art Rosado Pieter Work Phone: Start: 11-24-2020 Assay of troponin quantitative Kylah robles Work Phone: Start: 11-24-2020 Comprehensive metabolic panel Kylah marks Work Phone: Start: 11-24-2020 Ecg routine ecg w/least 12 lds w/i&r Kylah David Work Phone: Start: 11-24-2020 End: 11-24-2020 Gluc bld gluc mntr dev cleared fda spec home use Art Stapleton Work Phone: Start: 11-24-2020 Blood count complete auto&auto difrntl wbc Kylah David Work Phone: Start: 11-24-2020 Comprehensive metabolic panel Leonela Guerrero Work Phone: Start: 11-23-2020 Gluc bld gluc mntr dev cleared fda spec home use Art Stapleton Work Phone: Start: 11-23-2020 Gluc bld gluc mntr dev cleared fda spec home use Art Stapleton Work Phone: Start: 11-23-2020 Gluc bld gluc mntr dev cleared fda spec home use Art Stapleton Work Phone: Start: 11-23-2020 Gluc bld gluc mntr dev cleared fda spec home use Art Stapleton Work Phone: Start: 11-23-2020 Blood count complete auto&auto difrntl wbc Art Stapleton Work Phone: Start: 11-23-2020 Comprehensive metabolic panel Leonela Guerrero Work Phone: Start: 11-23-2020 Hemoglobin glycosylated a1c Art Stapleton Work Phone: Start: 11-23-2020 Glucose quantitative blood xcpt reagent strip Art Stapleton Work Phone: Start: 11-22-2020 Glucose quantitative blood xcpt reagent strip Joel Nelson Work Phone: Start: 11-22-2020 COVID-19, RAPID Joel Nelson Work Phone: Start: 11-22-2020 RESPIRATORY PANEL, MOLECULAR, WITH COVID-19 Joel Nelson Work Phone: Start: 11-22-2020 Urnls dip stick/tablet rgnt auto w/o microscopy Joel Nelson Work Phone: Start: 11-22-2020 CT Abdomen and Pelvis W contrast IV Joel Nelson Work Phone: Start: 11-22-2020 Assay of troponin quantitative Joel Nelson Work Phone: Start: 11-22-2020 Basic metabolic panel calcium total Joel Nelson Work Phone: Start: 11-22-2020 Blood count complete auto&auto difrntl wbc Joel Nelson Work Phone: Start: 11-22-2020 Hepatic function panel Joel Nelson Work Phone: Start: 11-22-2020 Gluc bld gluc mntr dev cleared fda spec home use Joel Nelson Work Phone: Start: 11-22-2020 Radiologic exam chest single view Joel Nelson Work Phone: Start: 11-22-2020 Ecg routine ecg w/least 12 lds w/i&r Joeljaci Nelson Work Phone: Start: 09-30-2020 Gluc bld gluc mntr dev cleared fda spec home use Nabil M Esterle Work Phone: Start: 09-30-2020 Gluc bld gluc mntr dev cleared fda spec home use Nabil M Esterle Work Phone: Start: 09-30-2020 Gastric emptying imaging study Chris Muniz Work Phone: Start: 09-30-2020 Gluc bld gluc mntr dev cleared fda spec home use Nabil M Esterle Work Phone: Start: 09-29-2020 Gluc bld gluc mntr dev cleared fda spec home use Nabil M Esterle Work Phone: Start: 09-29-2020 Glucose quantitative blood xcpt reagent strip Nabil M Esterle Work Phone: Start: 09-29-2020 End: 09-29-2020 Gluc bld gluc mntr dev cleared fda spec home use Nabil M Esterle Work Phone: Start: 09-28-2020 Gluc bld gluc mntr dev cleared fda spec home use Nabil M Esterle Work Phone: Start: 09-28-2020 Gluc bld gluc mntr dev cleared fda spec home use Nabil M Esterle Work Phone: Start: 09-28-2020 Gluc bld gluc mntr dev cleared fda spec home use Nabil M Esterle Work Phone: Start: 09-28-2020 Gluc bld gluc mntr dev cleared fda spec home use Nabil M Esterle Work Phone: Start: 09-28-2020 Gluc bld gluc mntr dev cleared fda spec home use Nabil M Esterle Work Phone: Start: 09-28-2020 Gluc bld gluc mntr dev cleared fda spec home use Nabil M Esterle Work Phone: Start: 09-28-2020 Gluc bld gluc mntr dev cleared fda spec home use Nabil M Esterle Work Phone: Start: 09-27-2020 Gluc bld gluc mntr dev cleared fda spec home use Nabil M Esterle Work Phone: Start: 09-27-2020 Gluc bld gluc mntr dev cleared fda spec home use Nabil M Esterle Work Phone: Start: 09-27-2020 COVID-19 Art Gonzalesanco Work Phone: Start: 09-27-2020 Gluc bld gluc mntr dev cleared fda spec home use Nabil M Esterle Work Phone: Start: 09-27-2020 Gluc bld gluc mntr dev cleared fda spec home use Nabil M Esterle Work Phone: Start: 09-26-2020 Gluc bld gluc mntr dev cleared fda spec home use Nabil M Esterle Work Phone: Start: 09-26-2020 Gluc bld gluc mntr dev cleared fda spec home use Nabil M Esterle Work Phone: Start: 09-26-2020 Gluc bld gluc mntr dev cleared fda spec home use Nabil M Esterle Work Phone: Start: 09-26-2020 End: 09-26-2020 Gluc bld gluc mntr dev cleared fda spec home use Nabil M Esterle Work Phone: Start: 09-26-2020 Comprehensive metabolic panel Nabil Chika Est erle Work Phone: Start: 09-26-2020 Blood count complete auto&auto difrntl wbc Kylah David Work Phone: Start: 09-25-2020 Gluc bld gluc mntr dev cleared fda spec home use Nabil M Esterle Work Phone: Start: 09-25-2020 Gluc bld gluc mntr dev cleared fda spec home use Nabil M Esterle Work Phone: Start: 09-25-2020 Echo tthrc r-t 2d w/wom-mode compl spec&colr d Priyank Gabriel Work Phone: Start: 09-25-2020 Radiologic exam abdomen 1 view Nabil Gilliam Es terle Work Phone: Start: 09-25-2020 Gluc bld gluc mntr dev cleared fda spec home use Nabil Gilliam Esterle Work Phone: Start: 09-25-2020 Gluc bld gluc mntr dev cleared fda spec home use Nabil Gilliam Esterle Work Phone: Start: 09-24-2020 Gluc bld gluc mntr dev cleared fda spec home use Nabil Gilliam Esterle Work Phone: Start: 09-24-2020 Gluc bld gluc mntr dev cleared fda spec home use Art Zeng Work Phone: Start: 09-24-2020 Assay of magnesium Priyank Gabriel Work Phone: Start: 09-24-2020 Assay of troponin quantitative Priyank Francesco eem Work Phone: Start: 09-24-2020 Gluc bld gluc mntr dev cleared fda spec home use Nabil Gilliam Esterle Work Phone: Start: 09-24-2020 Radiologic exam abdomen 1 view Nabil Boothe terle Work Phone: Start: 09-24-2020 Blood count complete auto&auto difrntl wbc Nabil Gilliam Esterle Work Phone: Start: 09-24-2020 Comprehensive metabolic panel Nabil Gilliam Est erle Work Phone: Start: 09-24-2020 Gluc bld gluc mntr dev cleared fda spec home use Nabil Chika Esterle Work Phone: Start: 09-23-2020 Gluc bld gluc mntr dev cleared fda spec home use Nabil M Esterle Work Phone: Start: 09-23-2020 Gluc bld gluc mntr dev cleared fda spec home use Nabil M Esterle Work Phone: Start: 09-23-2020 Gluc bld gluc mntr dev cleared fda spec home use Nabil M Esterle Work Phone: Start: 09-23-2020 Radiologic exam abdomen 1 view Kylah robles Work Phone: Start: 09-23-2020 Gluc bld gluc mntr dev cleared fda spec home use Nabil M Esterle Work Phone: Start: 09-23-2020 Gluc bld gluc mntr dev cleared fda spec home use Nabil M Esterle Work Phone: Start: 09-23-2020 Blood count complete auto&auto difrntl wbc Kylah David Work Phone: Start: 09-23-2020 Comprehensive metabolic panel Kylah Reed nning Work Phone: Start: 09-22-2020 Gluc bld gluc mntr dev cleared fda spec home use Nabil M Esterle Work Phone: Start: 09-22-2020 Gluc bld gluc mntr dev cleared fda spec home use Nabil M Esterle Work Phone: Start: 09-22-2020 Gluc bld gluc mntr dev cleared fda spec home use Nabil M Esterle Work Phone: Start: 09-22-2020 Gluc bld gluc mntr dev cleared fda spec home use Nabil M Esterle Work Phone: Start: 09-22-2020 Radiologic exam abdomen 1 view Kylah robles Work Phone: Start: 09-22-2020 Comprehensive metabolic panel Kylah marks Work Phone: Start: 09-22-2020 Blood count complete auto&auto difrntl wbc Kylah David Work Phone: Start: 09-21-2020 Gluc bld gluc mntr dev cleared fda spec home use Nabil M Esterle Work Phone: Start: 09-21-2020 Gluc bld gluc mntr dev cleared fda spec home use Nabil M Esterle Work Phone: Start: 09-21-2020 Glucose quantitative blood xcpt reagent strip Kylah David Work Phone: Start: 09-21-2020 Glucose quantitative blood xcpt reagent strip Kylah David Work Phone: Start: 09-21-2020 Gluc bld gluc mntr dev cleared fda spec home use Nabil M Esterkeisha Work Phone: Start: 09-20-2020 Gluc bld gluc mntr dev cleared fda spec home use Nabil Hill Work Phone: Start: 09-20-2020 Gluc bld gluc mntr dev cleared fda spec home use Nabil Gilliam Esterkeisha Work Phone: Start: 09-20-2020 Gluc bld gluc mntr dev cleared fda spec home use Art Escobar [employer] Work Phone: Start: 09-20-2020 Radiologic exam abdomen 1 view Nabil Boothe terkeisha Work Phone: Start: 09-20-2020 Gluc bld gluc mntr dev cleared fda spec home use Art Escobar [employer] Work Phone: Start: 09-20-2020 Basic metabolic panel calcium total Nabil Hill Work Phone: Start: 09-19-2020 Gluc bld gluc mntr dev cleared fda spec home use Art Escobar [employer] Work Phone: Start: 09-19-2020 Gluc bld gluc mntr dev cleared fda spec home use Art Escobar [employer] Work Phone: Start: 09-19-2020 HM ENDOSCOPY REPORT 3m Scanning Start: 09-19-2020 Level iv surg pathology gross&microscopic exam Sergio Sibley Work Phone: Start: 09-19-2020 Gluc bld gluc mntr dev cleared fda spec home use Art Escobar [employer] Work Phone: Start: 09-19-2020 Radiologic exam abdomen 1 view Kylah Kemal travis Work Phone: Start: 09-19-2020 Gluc bld gluc mntr dev cleared fda spec home use Art Escobar Pallaci Work Phone: Start: 09-19-2020 Blood count complete auto&auto difrntl wbc Kylah David Work Phone: Start: 09-19-2020 Comprehensive metabolic panel Kylah Derek nnarline Work Phone: Start: 09-19-2020 MANUAL DIFFERENTIAL Kylah David Work Phone: Start: 09-18-2020 Gluc bld gluc mntr dev cleared fda spec home use Art Zeng Work Phone: Start: 09-18-2020 End: 09-18-2020 Gluc bld gluc mntr dev cleared fda spec home use Art Zeng Work Phone: Start: 09-18-2020 Basic metabolic panel calcium total Kylah David Work Phone: Start: 09-18-2020 Gluc bld gluc mntr dev cleared fda spec home use Art Zeng Work Phone: Start: 09-18-2020 Radiologic exam abdomen 1 view Nabil Boothe terkeisha Work Phone: Start: 09-18-2020 Gluc bld gluc mntr dev cleared fda spec home use Art Zeng Work Phone: Start: 09-18-2020 Blood count complete auto&auto difrntl wbc Nabil Hill Work Phone: Start: 09-17-2020 Gluc bld gluc mntr dev cleared fda spec home use Art Zeng Work Phone: Start: 09-17-2020 Urnls dip stick/tablet rgnt auto w/o microscopy Art Zeng Work Phone: Start: 09-17-2020 CT Abdomen and Pelvis W contrast IV Art Zeng Work Phone: Start: 09-17-2020 Assay of lipase Art Zeng Work Phone: Start: 09-17-2020 Assay of troponin quantitative Art Zeng Work Phone: Start: 09-17-2020 Blood count complete auto&auto difrntl wbc Art Zeng Work Phone: Start: 09-17-2020 Comprehensive metabolic panel Art Escobar [employer] Work Phone: Start: 09-17-2020 MANUAL DIFFERENTIAL Art Escobar [employer] Work Phone: Start: 09-17-2020 Ecg routine ecg w/least 12 lds w/i&r Art Escobar [employer] Work Phone: Start: 08-29-2020 Lipid 1996 panel - Serum or Plasma Geronimo Lee MD Work Phone: Start: 01-02-2020 Ecg routine ecg w/least 12 lds w/i&r Marcella Dodd Work Phone: Start: 01-02-2020 BASIC METABOLIC PANEL W/ REFLEX TO MG FOR LOW K Marcella Dodd Work Phone: Start: 01-02-2020 Blood count hemoglobin Marcella Dodd Work Phone: Start: 06-27-2019 ADD ON LAB TEST Davie Blank Work Phone: Start: 06-26-2019 Assay of lactate Kaci Elliott Work Phone: Start: 06-26-2019 Blood count complete auto&auto difrntl wbc Kaci Elliott Work Phone: Start: 06-26-2019 Blood typing serologic abo Kaci Strauss Donnie sprague Work Phone: Start: 06-26-2019 C-reactive protein Kaci Elliott Work Phone: Start: 06-26-2019 Comprehensive metabolic panel Kaci sykes Work Phone: Start: 06-26-2019 RBC morphology finding Nom (Bld) Kaci Elliott Work Phone: Start: 06-26-2019 Sedimentation rate rbc automated Kaci Elliott Work Phone: Start: 06-26-2019 Radiologic examination femur minimum 2 views Kaci Elliott Work Phone: Start: 06-20-2019 Gluc bld gluc mntr dev cleared fda spec home use Jayesh Jordan Work Phone: Start: 06-20-2019 Gluc bld gluc mntr dev cleared fda spec home use Jayesh Jordan Work Phone: Start: 06-20-2019 Gluc bld gluc mntr dev cleared fda spec home use Jayesh Jordan Work Phone: Start: 06-20-2019 Blood count complete auto&auto difrntl wbc Jarek Katz Work Phone: Start: 06-19-2019 Gluc bld gluc mntr dev cleared fda spec home use Jayesh Jordan Work Phone: Start: 06-19-2019 Gluc bld gluc mntr dev cleared fda spec home use Jayesh Jordan Work Phone: Start: 06-19-2019 Gluc bld gluc mntr dev cleared fda spec home use Jayesh Jordan Work Phone: Start: 06-19-2019 Blood count complete auto&auto difrntl wbc aJrek Katz Work Phone: Start: 06-19-2019 Procalcitonin (pct) Jarek Katz Work Phone: Start: 06-18-2019 Gluc bld gluc mntr dev cleared fda spec home use Jayesh Jordan Work Phone: Start: 06-18-2019 Gluc bld gluc mntr dev cleared fda spec home use Dom Askew Ortiz Work Phone: Start: 06-18-2019 Gluc bld gluc mntr dev cleared fda spec home use Jayesh Jordan Work Phone: Start: 06-18-2019 Gluc bld gluc mntr dev cleared fda spec home use Jayesh Jordan Work Phone: Start: 06-18-2019 Blood count complete auto&auto difrntl wbc Jarek Katz Work Phone: Start: 06-17-2019 Gluc bld gluc mntr dev cleared fda spec home use Jayesh Jordan Work Phone: Start: 06-17-2019 Gluc bld gluc mntr dev cleared fda spec home use Dom R Ortiz Work Phone: Start: 06-17-2019 Potassium serum plasma/whole blood Crystal Susanna Work Phone: Start: 06-17-2019 Gluc bld gluc mntr dev cleared fda spec home use Jayesh Jordan Work Phone: Start: 06-17-2019 Blood count complete auto&auto difrntl wbc Jarek Katz Work Phone: Start: 06-17-2019 Blood count complete automated Jarek santos Work Phone: Start: 06-17-2019 Procalcitonin (pct) Jarek Katz Work Phone: Start: 06-17-2019 OPERATIVE REPORT 3m Scanning Start: 06-16-2019 Gluc bld gluc mntr dev cleared fda spec home use Jayesh M Titi Work Phone: Start: 06-16-2019 Level iv surg pathology gross&microscopic exam Sergio T Renetta Work Phone: Start: 06-16-2019 Gluc bld gluc mntr dev cleared fda spec home use Dom R Ortiz Work Phone: Start: 06-16-2019 Gluc bld gluc mntr dev cleared fda spec home use Dom R Ortiz Work Phone: Start: 06-16-2019 Albumin serum plasma/whole blood Jarek olson Work Phone: Start: 06-16-2019 Hemoglobin glycosylated a1c Jarek dean Work Phone: Start: 06-16-2019 Gluc bld gluc mntr dev cleared fda spec home use Jayesh Gilliam Titi Work Phone: Start: 06-16-2019 Gluc bld gluc mntr dev cleared fda spec home use Jayesh Jordan Work Phone: Start: 06-16-2019 Blood count complete automated Jayesh rodriguez Work Phone: Start: 06-16-2019 Blood count complete auto&auto difrntl wbc Jarek Katz Work Phone: Start: 06-16-2019 Blood count complete automated Jarek santos Work Phone: Start: 06-16-2019 Drug screen quantitative vancomycin Keily N Holstein Work Phone: Start: 06-15-2019 Gluc bld gluc mntr dev cleared fda spec home use Dom Cardenaso Work Phone: Start: 06-15-2019 Gluc bld gluc mntr dev cleared fda spec home use Dom Cardenaso Work Phone: Start: 06-15-2019 Gluc bld gluc mntr dev cleared fda spec home use Jayesh Jordan Work Phone: Start: 06-15-2019 End: 06-15-2019 Gluc bld gluc mntr dev cleared fda spec home use Jayesh Jordan Work Phone: Start: 06-15-2019 Gluc bld gluc mntr dev cleared fda spec home use Jayesh Jordan Work Phone: Start: 06-15-2019 Blood count complete auto&auto difrntl wbc Jarek Katz Work Phone: Start: 06-15-2019 Blood count complete automated Jarek leyvachiqui Work Phone: Start: 06-14-2019 Radiologic examination femur minimum 2 views Scooter Deal Work Phone: Start: 06-14-2019 Gluc bld gluc mntr dev cleared fda spec home use Jayesh Jordan Work Phone: Start: 06-14-2019 Chest x-ray 1 view frontal Scooter Deal Work Phone: Start: 06-14-2019 Blood typing serologic abo Scooter Deal Work Phone: Start: 06-14-2019 Procalcitonin (pct) Jarek Katz Work Phone: Start: 06-14-2019 Prothrombin time Scooter Deal Work Phone: Start: 06-14-2019 Ecg routine ecg w/least 12 lds w/i&r Scooter Deal Work Phone: Start: 06-14-2019 Radex foot complete minimum 3 views Dom Ortiz Work Phone: Start: 06-14-2019 ADD ON LAB TEST Dom Ortiz Work Phone: Start: 06-14-2019 End: 06-14-2019 Culture bacterial blood aerobic w/id isolates Marianna Jon Work Phone: Start: 06-14-2019 Assay of lactate Marianna Jon Work Phone: Start: 06-14-2019 Basic metabolic panel calcium total Marianna Jon Work Phone: Start: 06-14-2019 Blood count complete auto&auto difrntl wbc Marianna Jon Work Phone: Start: 06-14-2019 C-reactive protein Marianna Jon Work Phone: Start: 06-14-2019 Ketone bodies serum quantitative Marquise Jon Work Phone: Start: 06-14-2019 Sedimentation rate rbc automated Marquise Jon Work Phone: Start: 06-14-2019 Culture bacterial any source anaerobic iso&id Jayesh Jordan Work Phone: Start: 06-14-2019 Culture bacterial blood aerobic w/id isolates Jayesh Jordan Work Phone: Start: 05-04-2018 Detachment at Right Foot, Complete 5th Ray, Open Approach [facility] Start: 03-18-2018 Excision of Right Metatarsal, Open Approach [facility] Start: 03-18-2018 Excision of Right Metatarsal, Open Approach, Diagnostic [facility] Start: 03-18-2018 Insertion of Infusion Device into Right Atrium, Percutaneous Approach [facility] Start: 03-18-2018 Ultrasonography of Right Heart [facility] Start: 02-04-2018 Excision of Right Foot Muscle, Open Approach [facility] Plan of Treatment Date Care Activity Detail Author Start: 2041 RSV Immunization for Adults (1 - 1-dose 75+ series) RSV Immunization for Adults (1 - 1-dose 75+ series) [facility] Start: 2026 RSV Immunization aged 60 or older (1 - 1-dose 60+ series) RSV Immunization aged 60 or older (1 - 1-dose 60+ series) [facility] Start: 2026 [facility] Start: 04-06-2026 Hemoglobin A1c measurement Diabetes: Hemoglobin A1C [facility] Start: 03-27-2026 Diabetic foot examination Diabetes: Foot Exam [facility] Start: 01-01-2026 Diabetic foot examination Diabetes: Foot Exam [facility] Start: 12-01-2025 Diabetes: Estimated Glomerular Filtration Rate for Kidney Health Diabetes: Estimated Glomerular Filtration Rate for Kidney Health [facility] Start: 11-12-2025 Diabetes: Estimated Glomerular Filtration Rate for Kidney Health Diabetes: Estimated Glomerular Filtration Rate for Kidney Health [facility] Start: 10-24-2025 Diabetes: Estimated Glomerular Filtration Rate for Kidney Health Diabetes: Estimated Glomerular Filtration Rate for Kidney Health [facility] Start: 10-23-2025 Diabetes: Estimated Glomerular Filtration Rate for Kidney Health Diabetes: Estimated Glomerular Filtration Rate for Kidney Health [facility] Start: 10-20-2025 Diabetes: Estimated Glomerular Filtration Rate for Kidney Health Diabetes: Estimated Glomerular Filtration Rate for Kidney Health [facility] Start: 10-19-2025 Hemoglobin A1c measurement Diabetes: Hemoglobin A1C [facility] Start: 10-19-2025 Screening for malignant neoplasm of colon [facility] Start: 08-31-2025 Glaucoma screening Diabetes: Retinopathy Screening [facility] Start: 08-07-2025 End: 08-07-2025 Patient encounter procedure 08/07/2025 3:30 PM EDT Office Visit [facility] [address] [place] [address] Kaushal Schultz PA-C [address] [place], [place] [address] [facility] Start: 07-09-2025 Influenza vaccination Influenza Vaccine (Season Ended) [facility] Start: 07-07-2025 End: 04-06-2026 Comprehensive metabolic 1998 panel - Serum or Plasma Comprehensive metabolic panel Lab Routine Type 2 diabetes mellitus with hyperglycemia, with long-term current use of insulin (HCC) Microalbuminuria Expected: 07/07/2025 (Approximate), Expires: 04/06/2026 [facility] Work Phone: Comment on above: Expected: 07/07/2025 (Approximate), Expi res: 04/06/2026 Start: 07-07-2025 End: 04-06-2026 Lipid 1996 panel - Serum or Plasma Lipid panel Lab Routine Mixed diabetic hyperlipidemia associated with type 2 diabetes mellitus (HCC) Expected: 07/07/2025 (Approximate), Expires: 04/06/2026 [facility] Comment on above: Expected: 07/07/2025 (Approximate), Expi res: 04/06/2026 Start: 07-07-2025 End: 04-06-2026 Microalbumin/Creatinine panel in random Urine Microalbumin / creatinine urine ratio Lab Routine Type 2 diabetes mellitus with hyperglycemia, with long-term current use of insulin (HCC) Microalbuminuria Expected: 07/07/2025 (Approximate), Expires: 04/06/2026 [facility] Comment on above: Expected: 07/07/2025 (Approximate), Expi res: 04/06/2026 Start: 06-22-2025 Glaucoma screening [facility] Start: 06-07-2025 End: 06-07-2025 Admission to same day surgery center 06/07/2025 11:00 AM EDT - 06/07/2025 12:00 PM EDT Surgery [facility] [address] [place] [id number] Freeman Chang MD [address] [place] [address] [id number] COLONOSCOPY [44544 (CPT )] [facility] Comment on above: COLONOSCOPY [61788 (CPT )] Start: 06-07-2025 End: 06-07-2025 Colonoscopy flx dx w/collj spec when pfrmd COLONOSCOPY Other fecal abnormalities Personal history of diseases of the blood and blood-forming organs and certain disorders involving the immune mechanism Calculus of gallbladder without cholecystitis without obstruction Body mass index (BMI) 50.0-59.9, adult (HCC) 06/07/2025 11:[address] [facility] Start: 06-07-2025 End: 06-07-2025 Esophagogastroduodenoscopy transoral diagnostic ESOPHAGOGASTRODUODENO SCOPY, DIAGNOSTIC Other fecal abnormalities Personal history of diseases of the blood and blood-forming organs and certain disorders involving the immune mechanism Calculus of gallbladder without cholecystitis without obstruction Body mass index (BMI) 50.0-59.9, adult ([facility]) 06/07/2025 11:[address] [facility] Start: 06-07-2025 Subsequent hospital visit by physician 06/07/2025 11:00 AM EDT Hospital Encounter [facility] [address] [place] [address] Freeman Chang MD [address] [facility] [address] [place] [address] [facility] Start: 03-27-2025 End: 03-27-2025 Patient encounter procedure 03/27/2025 9:00 AM EDT Office Visit [facility] [address] [facility] [address] [place] [address] Lisa Lopes, PERSONAL CARE SERVICE PROVIDER - [employer]ARING [employer] WORKER [address] [place] [address] [facility] Start: 03-02-2025 End: 03-02-2025 Patient encounter procedure 03/02/2025 11:20 AM EDT Office Visit [facility] [address] [place] [address] Herber Ramos PERSONAL CARE SERVICE PROVIDER - SHEARING SHED WORKER [address] [facility] [address] [place] [address] [facility] Start: 02-14-2025 Glaucoma screening Diabetes: Retinopathy Screening [facility] Start: 02-09-2025 End: 02-09-2025 Patient encounter procedure 02/09/2025 2:20 PM EDT Appoint[facility] [address] [place] [address] Alejandro Mandel PERSONAL CARE SERVICE PROVIDER - SHEARING SHED WORKER [address] [facility] [address] [place] [phone] [facility] Start: 02-06-2025 End: 02-10-2025 CT Chest WO contrast CT chest wo IV contrast Imaging Routine Lung nodule Expected: 02/06/2025, Expires: 02/10/2025 [facility] Work Phone: Comment on above: Expected: 02/06/2025, Expires: Start: 02-06-2025 End: 02-06-2025 Patient encounter procedure [facility] Start: 02-06-2025 End: 02-06-2025 Patient encounter procedure 02/06/2025 7:30 AM EDT Appoint[facility] CT Imaging [address] [place] [phone] Herber Ramos PERSONAL CARE SERVICE PROVIDER - SHEARING SHED WORKER [address] [place] [address] [facility] [address] Imaging Start: 02-01-2025 End: 02-01-2025 Patient encounter procedure 02/01/2025 9:30 AM EDT Office Visit [facility] [address] [place] [phone] Alejandro Mandel PERSONAL CARE SERVICE PROVIDER - SHEARING SHED WORKER [address] [place] [phone] [facility] Start: 01-21-2025 Diabetes: Estimated Glomerular Filtration Rate for Kidney [facility] Diabetes: Estimated Glomerular Filtration Rate for Kidney [facility] Start: 01-01-2025 End: 01-01-2026 Lipid 1996 panel - Serum or Plasma Lipid panel Lab Routine Mixed hyperlipidemia Expected: 01/01/2025 (Approximate), Expires: 01/01/2026 [facility] Work Phone: Comment on above: Expected: 01/01/2025 (Approximate), Expi res: 01/01/2026 Start: 01-01-2025 End: 01-01-2026 Microalbumin/Creatinine panel in random Urine Microalbumin / creatinine urine ratio Lab Routine Type 2 diabetes mellitus with hyperglycemia, with long-term current use of insulin (HCC) Expected: 01/01/2025 (Approximate), Expires: 01/01/2026 [facility] Comment on above: Expected: 01/01/2025 (Approximate), Expi res: 01/01/2026 Start: 01-01-2025 End: 01-01-2025 Patient encounter procedure 01/01/2025 11:00 AM EST Office Visit [facility] [address] [facility] [address] [place] [phone] Margo Guerrero, PERSONAL CARE SERVICE PROVIDER - SHEARING SHED WORKER [address] [place] [address] [facility] Start: 12-31-2024 Hemoglobin A1c measurement Diabetes: Hemoglobin A1C [facility] Start: 12-21-2024 End: 12-21-2024 Patient encounter procedure 12/21/2024 8:30 AM EST [facility] [address] [place] [phone] Wanda Johnson PERSONAL CARE SERVICE PROVIDER - SHEARING SHED WORKER [address] [facility] [address] [place] [address] [facility] Start: 12-10-2024 Glaucoma screening Diabetes: Retinopathy Screening [facility] Start: 12-07-2024 End: 12-07-2024 Patient encounter procedure 12/07/2024 1:00 PM EST Office Visit [facility] [address] [facility] [address] [place] [phone] Lilo Rizo MD [address] [facility] [address] [place] [address] [facility] Start: 11-27-2024 End: 11-27-2024 Patient encounter procedure [facility] Start: 11-24-2024 End: 11-10-2025 RF Guidance for percutaneous drainage and placement of drainage catheter of Biliary ducts IR biliary drain check Imaging Routine Cholecystitis Expected: 11/24/2024, Expires: 11/10/2025 [facility] Work Phone: Comment on above: Expected: 11/24/2024, Expires: Start: 11-14-2024 End: 11-14-2024 Patient encounter procedure 11/14/2024 10:15 AM EST Office Visit [facility] [address] [facility] [address] [place] [phone] Asuncion Valencia APRN - SHEARING SHED WORKER [address] [facility] [address] [place] [address] [facility] Start: 11-08-2024 Medicare Advantage Annual Wellness Visit Medicare Advantage Annual Wellness Visit [facility] Start: 10-09-2024 Hemoglobin A1c measurement [facility] Start: 07-09-2024 COVID-19 Vaccine () COVID-19 Vaccine () [facility] Start: 07-09-2024 COVID-19 Vaccine () COVID-19 Vaccine () [facility] Start: 07-09-2024 Influenza vaccination [facility] Start: 06-22-2024 Glaucoma screening Diabetes: Retinopathy Screening [facility] Start: 03-14-2024 End: 03-14-2024 Patient encounter procedure 03/14/2024 2:30 PM EDT Office Visit [facility] Endocr[facility]ology [address] [place] [phone] Carito Thacker, PERSONAL CARE SERVICE PROVIDER - SHEARING SHED WORKER [address] [place] [address] [facility] Start: 02-11-2024 End: 02-10-2025 CT Chest WO contrast CT chest wo IV contrast Imaging Routine Solitary pulmonary nodule Expected: 02/11/2024, Expires: 02/10/2025 [facility] Work Phone: Comment on above: Expected: 02/11/2024, Expires: Start: 02-11-2024 End: 02-11-2024 Patient encounter procedure [facility] Start: 02-10-2024 Hemoglobin A1c measurement Diabetes: Hemoglobin A1C [facility] Start: 02-10-2024 Lipid panel [facility] Start: 01-06-2024 End: 01-06-2024 Patient encounter procedure 01/06/2024 11:30 AM EST Appointment [facility] [address] [place] [phone] Herber Ramos APRN - SHEARING SHED WORKER [address] [place] [address] [facility] Start: 12-31-2023 End: 12-31-2023 ambulatory [facility] Start: 12-31-2023 End: 12-31-2023 Patient encounter procedure 12/31/2023 9:40 AM EST Office Visit [facility] [address] [place] [phone] Herber Ramos APRN - SHEARING SHED WORKER [address] [place] [address] [facility] Start: 12-23-2023 End: 12-23-2023 Patient encounter procedure 12/23/2023 9:00 AM EST Appoint[facility] [address] [place] [address] [facility] Start: 12-20-2023 End: 12-20-[address] [facility] Start: 12-20-2023 End: 12-20-2023 Patient encounter procedure 12/20/2023 10:30 AM EST Appointment [facility] [address] [place] [address] Herber Ramos, JEREMY - SHEARING SHED WORKER [address] [place] [address] [facility] Start: 11-08-2023 Medicare Advantage Annual Wellness Visit Medicare Advantage Annual Wellness Visit [facility] Start: 10-27-2023 End: 10-27-2023 ambulatory [facility] Start: 10-27-2023 End: 10-27-2023 Patient encounter procedure 10/27/2023 2:00 PM EST Office Visit [facility] [address] [place] [phone] Geronimo Lee MD [address] [place] [address] [facility] Start: 10-27-2023 End: 10-27-2023 Telemedicine consultation with patient 10/27/2023 2:00 PM EST Telemedicine [facility] [address] [place] [address] Geronimo Lee MD [address] [place] [address] [facility] Start: 09-17-2023 End: 09-17-2023 Patient encounter procedure 09/17/2023 Office Visit Endocrinology Geronimo Lee MD [address] [place] [address] [facility] Start: 09-17-2023 End: 09-17-2023 Patient encounter procedure 09/17/2023 9:10 AM EST Office Visit [facility] [address] [place] [address] Herber Ramos, PERSONAL CARE SERVICE PROVIDER - SHEARING SHED WORKER [address] [place] [address] [facility] Start: 08-13-2023 End: 08-13-2023 Patient encounter procedure 08/13/2023 11:40 AM EDT Office Visit [facility] [address] [place] [address] Herber Ramos, PERSONAL CARE SERVICE PROVIDER - SHEARING SHED WORKER [address] [place] [address] [facility] Start: 07-30-2023 End: 07-30-2023 Patient encounter procedure 07/30/2023 9:10 AM EDT Office Visit [facility] [address] [place] [address] Herber Ramos, PERSONAL CARE SERVICE PROVIDER - SHEARING SHED WORKER [address] [place] [address] [facility] Start: 07-09-2023 COVID-19 Vaccine ( season) COVID-19 Vaccine ( season) [facility] Start: 07-09-2023 Influenza vaccination [facility] Start: 07-09-2023 [facility] Start: 06-29-2023 End: 06-29-2023 Esophagogastroduodenoscopy transoral diagnostic EGD DIAGNOSTIC Nausea and vomiting, unspecified vomiting type 06/29/2023 9:[address] [facility] Start: 05-11-2023 Hemoglobin A1c measurement Diabetes: Hemoglobin A1C [facility] Start: 10-19-2022 Hemoglobin A1c measurement Diabetes: Hemoglobin A1C [facility] Start: 08-08-2022 Influenza vaccination Influenza Vaccine (#1) [facility] Start: 04-23-2022 COVID-19 Vaccine (4 - Booster for Pfizer series) COVID-19 Vaccine (4 - Booster for Pfizer series) [facility] Start: 04-23-2022 COVID-19 Vaccine (4 - Pfizer series) COVID-19 Vaccine (4 - Pfizer series) [facility] Start: 12-08-2021 Creatinine measurement Creatinine monitoring [place], [place] Start: 12-08-2021 Potassium monitoring Potassium monitoring [place], [place] Start: 11-28-2021 Creatinine measurement Creatinine monitoring [place] Start: 11-28-2021 Potassium monitoring Potassium [place] Start: 09-26-2021 Creatinine measurement Creatinine monitoring [place] Start: 09-26-2021 Potassium monitoring Potassium [place] Start: 08-29-2021 Lipid panel Lipid Panel [facility] Start: 08-23-2021 Lipid panel Lipid screen [place] Start: 02-21-2021 HbA1c (Bld) [Mass fraction] A1C test (Diabetic or Prediabetic) [place] Start: 01-24-2021 End: 01-24-2021 Office Visit 01/24/2021 Office Visit Endocrinology Geronimo Lee MD [address] [facility] [place] [address] [phone] [facility] [place] Start: 11-23-2020 End: 11-23-2020 HbA1c (Bld) [Mass fraction] [facility] MARYAM Comment on above: One Time for 1 Occurrences starting 11/08 until 11/23/2020 Start: 07-09-2020 Influenza vaccination Flu vaccine (#1) [facility] Start: 06-26-2020 Creatinine monitoring Creatinine monitoring [place], [place] Start: 06-26-2020 Potassium monitoring Potassium [place] Start: 06-20-2020 Creatinine monitoring Creatinine monitoring [facility]ARYAM Start: 06-20-2020 Potassium monitoring Potassium monitoring [place] Start: 01-22-2020 End: 01-22-2020 Office Visit 01/22/2020 Office Visit Gynecologic Oncology Justin Walsh MD [address] [place] [address] [phone] [facility] [employer] On[facility] Start: 01-09-2020 End: 01-09-2020 Appointment 01/09/2020 Appointment General Surgery Justin Walsh MD [address] [place] [address] [phone] [facility] General Surgery Start: 09-16-2019 A1C test (Diabetic or Prediabetic) A1C test (Diabetic or Prediabetic) [facility] Start: 07-17-2019 End: 07-17-2019 Office Visit 07/17/2019 Office Visit Gynecologic Oncology Justin Walsh MD [address] [place] [address] [phone] [facility] Start: 07-13-2019 End: 07-13-2019 Office Visit 07/13/2019 Office Visit Gynecologic Oncology Mignon Bynum PA [address] [place] [address] [phone] [facility] [employer] On[facility] Start: 07-09-2019 Influenza vaccination Flu vaccine (#1) [place] Start: 06-28-2019 End: 06-28-2019 Office Visit 06/28/2019 Office Visit Orthopedic Surgery Sergio Pisano MD [address] [facility] [address] [place] [address] [phone] [facility] [place] Start: 06-27-2019 End: 06-27-2019 Hospital Encounter [facility] Comment on above: Canceled (Other) Start: 04-26-2019 Annual Wellness Visit (AWV) Annual Wellness Visit (AWV) [place] Start: 2016 Breast cancer screen Breast cancer screen [place] Start: 2016 Colon cancer screen colonoscopy Colon cancer screen colonoscopy [place] Start: 2016 Screening for malignant neoplasm of breast Breast cancer screen [place] Start: 2016 Screening for malignant neoplasm of colon Colon cancer screen colonoscopy [place] Start: 2016 Shingles (RZV) Vaccine (1 of 2) Shingles (RZV) Vaccine (1 of 2) [facility] Start: 2016 Shingles Vaccine (1 of 2) Shingles Vaccine (1 of 2) [place] Start: 2016 Zoster Vaccines (1 of 2) Zoster Vaccines (1 of 2) [facility] Start: 2016 [facility] Start: 2011 Cholesterol [Mass/volume] in Serum or Plasma [facility]olesterol [facility] Start: 2011 Screening for malignant neoplasm [facility] colon [facility] Start: 2006 Screening for malignant neoplasm of breast [facility] Start: 1996 Screening for malignant neoplasm of cervix [facility] Start: 1987 Cervical cancer screen Cervical cancer screen [place] Start: 1987 Screening for malignant neoplasm of cervix [facility] Start: 1985 DTaP/Tdap/Td vaccine (1 - Tdap) DTaP/Tdap/Td vaccine (1 - Tdap) [place] Start: 1985 DTaP/Tdap/Td Vaccines (1 - Tdap) DTaP/Tdap/Td Vaccines (1 - Tdap) [facility] Start: 1985 Hepatitis B Vaccine (1 of 3 - Risk 3-dose series) Hepatitis B Vaccine (1 of 3 - Risk 3-dose series) [place] Start: 1985 Hepatitis B Vaccines (1 of 3 - 19+ 3-dose series) Hepatitis B Vaccines (1 of 3 - 19+ 3-dose series) [facility] Start: 1985 Pneumococcal Vaccine: 50+ Years (1 of 2 - PCV) Pneumococcal Vaccine: 50+ Years (1 of 2 - PCV) [facility] Start: 1985 Tetanus vaccination Tetanus (Td or Tdap) Booster [facility] Start: 1985 Urine screening for protein Diabetes: Urine Protein Screening [facility] Start: 1985 [facility] Start: 1984 Diabetes: Urine Albumin-Creatinine Ratio for Kidney Health Diabetes: Urine Albumin-Creatinine Ratio for Kidney Health [facility] Start: 1984 Diabetic microalbuminuria test Diabetic microalbuminuria test [place] Start: 1984 Hepatitis C screening [facility] Start: 1984 Tetanus + diphtheria + acellular pertussis vaccine (product) Tdap Booster [facility] Start: 1981 HIV screen HIV screen [place] Start: 1981 HIV screening [facility] Start: 1978 Depression Monitoring Depression Monitoring [facility] Start: 1978 Depression Screening Depression Screening [facility] Start: 1978 [facility] Start: 1977 DTaP/Tdap/Td vaccine (1 - Tdap) DTaP/Tdap/Td vaccine (1 - Tdap) [place] Start: 1976 [object Object] Diabetic foot exam [place] Start: 1976 Diabetic foot examination [facility] Start: 1976 Diabetic retinal exam Diabetic retinal exam [place], [place] Start: 1976 Glaucoma screening Diabetes: Retinopathy Screening [facility] Start: 1976 Lipid screen Lipid screen [place] Start: 1976 Preventive dental service [facility] Start: 1972 Pneumococcal 0-64 years Vaccine (1 of 1 - PPSV23) Pneumococcal 0-64 years Vaccine (1 of 1 - PPSV23) [place] Start: 1972 Pneumococcal Vaccine: Pediatrics (0 to 5 Years) and At-Risk Patients (6 to 64 Years) (1 - PCV) Pneumococcal Vaccine: Pediatrics (0 to 5 Years) and At-Risk Patients (6 to 64 Years) (1 - PCV) [facility] Start: 1972 Pneumococcal Vaccine: Pediatrics (0 to 5 Years) and At-Risk Patients (6 to 64 Years) (1 of 2 - PCV) Pneumococcal Vaccine: Pediatrics (0 to 5 Years) and At-Risk Patients (6 to 64 Years) (1 of 2 - PCV) [facility] Start: 1972 [facility] Start: 1967 MMR Vaccines (1 of 1 - Standard series) MMR Vaccines (1 of 1 - Standard series) [facility] Start: 1967 [facility] Start: 04-25-1967 COVID-19 Vaccine (#1) COVID-19 Vaccine (#1) [facility] Start: 1966 Hepatitis B Vaccines (1 of 3 - 3-dose series) Hepatitis B Vaccines (1 of 3 - 3-dose series) [facility] Start: 1966 Hepatitis C screening Hepatitis C screen [place] Start: 1966 HIV screening [facility] Start: 1966 Medicare Advantage Annual Wellness Visit (AWV) Medicare Advantage Annual Wellness Visit (AWV) [facility] Start: 1966 Screening for malignant neoplasm of colon [facility] Start: 1966 [facility] End: 10-19-2024 Aerobic and Anaerobic Culture with Stain [facility] Work Phone: Comment on above: Release Upon Ordering for 1 Occurrences starting 10/19/2024 Once (Lab) for 1 Occ urrences starting 10/19/2024 until 10/19/2024 Aerobic and Anaerobi c Culture with Stain Aerobic and Anaerobic Culture with Stain Microbiology Routine 10/19/2024 3:08 PM EST [facility] End: 06-14-2019 Anaerobic Culture Anaerobic Culture Microbiology Routine One Time for 1 Occurrences starting 06/14/2019 until 06/14/2019 [facility] Comment on above: One Time for 1 Occurrences starting 05/2019 until 06/14/2019 Bacteria identified in Unspecified specimen by Aerobe culture Culture, Aerobic Bacteria with Gram Stain Microbiology Routine 10/19/2024 3:08 PM [facility] [employer] Bacteria identified in Unspecified specimen by Anaerobe culture Anaerobic culture Microbiology Routine Acute cholecystitis 10/19/2024 1:52 PM [facility] [employer] Bacteria identified in Unspecified specimen by Anaerobe culture Anaerobic culture Microbiology Routine 10/19/2024 3:08 PM EST [facility] End: 08-08-2023 Bacteria identified in Urine by Culture [employer] Work Phone: Comment on above: STAT (Lab) for 1 Occurrences starting until 08/08/2023 End: 10-13-2023 Blood gases, arterial measurement [facility] [employer] Work Phone: End: 08-08-2023 Blood gases, venous measurement Blood gas, venous (ACH and SBH) Lab STAT Once (Lab) for 1 Occurrences starting 08/08/2023 until 08/08/2023 [employer] Work Phone: Comment on above: Once (Lab) for 1 Occurrences starting until 08/08/2023 End: 12-09-2023 Blood gases, venous measurement Blood gas, venous (ACH and SBH) Lab STAT Once (Lab) for 1 Occurrences starting 12/09/2023 until 12/09/2023 [employer] Work Phone: Comment on above: Once (Lab) for 1 Occurrences starting until 12/09/2023 End: 09-18-2020 CBC CBC Lab Routine Tomorrow AM for 1 Occurrences starting 09/18/2020 until 09/18/2020 [facility] Comment on above: Tomorrow AM for 1 Occurrences starting 1 11/18/2019 until 09/18/2020 End: 09-19-2020 CBC Auto Differential CBC Auto Differential Lab Timed Tomorrow AM for 1 Occurrences starting 09/19/2020 until 09/19/2020 [facility] Comment on above: Tomorrow AM for 1 Occurrences starting 1 11/19/2019 until 09/19/2020 End: 11-25-2020 CBC Auto Differential CBC Auto Differential Lab Timed Tomorrow AM for 1 Occurrences starting 11/25/2020 until 11/25/2020 [facility] Comment on above: Tomorrow AM for 1 Occurrences starting 0 11/25/2020 until 11/25/2020 End: 09-19-2020 Comprehensive metabolic 2000 panel Comprehensive Metabolic Panel Lab Timed Tomorrow AM for 1 Occurrences starting 09/19/2020 until 09/19/2020 [facility] Comment on above: Tomorrow AM for 1 Occurrences starting 1 11/19/2019 until 09/19/2020 Comprehensive metabo lic 2000 panel Comprehensive Metabolic Panel Lab Routine Daily until discontinued starting 11/23/2020, 6 completed [facility] Comment on above: Daily until discontinued starting 2020, 6 completed End: 11-25-2020 Comprehensive metabolic 2000 panel Comprehensive Metabolic Panel Lab Timed Tomorrow AM for 1 Occurrences starting 11/25/2020 until 11/25/2020 [facility] Comment on above: Tomorrow AM for 1 Occurrences starting 0 11/25/2020 until 11/25/2020 Comprehensive Metabo lic Panel w/ Reflex to MG Comprehensive Metabolic Panel w/ Reflex to MG Lab Routine Daily until discontinued starting 06/15/2019, 6 completed [facility] Comment on above: Daily until discontinued starting 2018, 6 completed End: 06-26-2019 Culture Blood #1 Culture Blood #1 Microbiology STAT One Time for 1 Occurrences starting 06/26/2019 until 06/26/2019 [facility] Comment on above: One Time for 1 Occurrences starting 06/08 until 06/26/2019 Culture Blood #1 Culture Blood # 1 Microbiology STAT 06/26/2019 10:05 PM EDT [facility] End: 06-26-2019 Culture Blood #2 Culture Blood #2 Microbiology STAT One Time for 1 Occurrences starting 06/26/2019 until 06/26/2019 [facility] Comment on above: One Time for 1 Occurrences starting 06/08 until 06/26/2019 Culture Blood #2 Culture Blood # 2 Microbiology STAT 06/26/2019 10:05 PM EDT [facility] End: 06-14-2019 Culture, Aerobic Bacteria with Gram Stai Culture, Aerobic Bacteria with Gram Stai Microbiology Routine One Time for 1 Occurrences starting 06/14/2019 until 06/14/2019 [facility] Comment on above: One Time for 1 Occurrences starting 05/2019 until 06/14/2019 End: 12-08-2020 Culture, Urine [facility] Comment on above: One Time for 1 Occurrences starting 11/10 until 12/08/2020 Once for 1 Occurrenc es starting 12/08/2020 until 12/08/2020 Culture, Urine Culture, Urine Microbiology STAT 12/08/2020 5:14 PM EST [facility] [employer] [facility] ECG 12 lead ECG 12 lead CV E CG STAT 10/24/2024 11:04 AM [facility] [employer] Work Phone: [facility] End: 09-18-2020 HbA1c (Bld) [Mass fraction] Hemoglobin A1C Lab Routine One Time for 1 Occurrences starting 09/18/2020 until 09/18/2020 [facility] Comment on above: One Time for 1 Occurrences starting 09/08 until 09/18/2020 Initiate Oxygen Ther apy Protocol Initiate Oxygen Therapy Protocol Respiratory Care Routine Daily until discontinued starting 06/14/2019 [facility] Comment on above: Daily until discontinued starting 2018 End: 06-18-2019 Occult blood x 3, stool Occult blood x 3, stool Lab Routine One Time for 1 Occurrences starting 06/18/2019 until 06/18/2019 [facility] Comment on above: One Time for 1 Occurrences starting 06/08 until 06/18/2019 Oxygen therapy [[facility] Data Set] Initiate Oxygen Therapy Protocol Respiratory Care Routine Daily until discontinued starting 09/18/2020 [facility] Comment on above: Daily until discontinued starting 2019 End: 09-17-2020 POCT Glucose POCT Glucose Point of Care Testing Routine Every 30 Min for 4 Occurrences starting 09/17/2020 until 09/17/2020 [facility] Comment on above: Every 30 Min for 4 Occurrences starting 09/17/2020 until 09/17/2020 POCT Glucose [facility] [employer] [place] Comment on above: As Needed until discontinued starting 4X Daily (AC & HS) u ntil discontinued starting 09/18/2020 4X Daily (AC & HS) u ntil discontinued starting 11/23/2020 As Needed until disc ontinued starting 11/23/2020 4X Daily until disco ntinued starting 11/26/2020 As Needed until disc ontinued starting 06/14/2019 4X Daily (AC & HS) u ntil discontinued starting 06/14/2019 End: 06-15-2019 POCT Glucose POCT Glucose Point of Care Testing Routine One Time for 1 Occurrences starting 06/15/2019 until 06/15/2019 [facility] Comment on above: One Time for 1 Occurrences starting 06/2019 until 06/15/2019 End: 06-16-2019 POCT Glucose POCT Glucose Point of Care Testing Routine One Time for 1 Occurrences starting 06/16/2019 until 06/16/2019 [facility] Comment on above: One Time for 1 Occurrences starting 07/2019 until 06/16/2019 Procalcitonin Procalcitonin La b Routine Q48H until discontinued starting 06/14/2019, 3 completed [facility] Comment on above: Q48H until discontinued starting 019, 3 completed End: 11-26-2020 Troponin I.cardiac [Mass/Vol] Troponin Lab Timed One Time for 1 Occurrences starting 11/26/2020 until 11/26/2020 [facility] Comment on above: One Time for 1 Occurrences starting 11/08 until 11/26/2020 Immunizations Immunization Date Immunization Notes Care Provider Fa [facility] 10-19-2024 influenza vaccine tiss-cult subunt (Flucelvax) STANDARD-DOSE injection 0.5 mL Dontrell Glozman DO Work Phone: [employer] 08-18-2023 influenza vac subuni t quadrivalent (Flucelvax) injection 0.5 mL Aaron Burgos DO Work Phone: [employer] 02-26-2022 Covid-19, Pfizer Gra y Top, Do Not Dilute, (Age 12 Y+), Im, L Geronimo Lee MD Work Phone: [facility] [employer] 08-12-2021 influenza, injectabl e, quadrivalent, preservative free Geronimo Lee MD Work Phone: [employer] 08-12-2021 Rosaura Acevedo O Work Phone: [facility] 08-12-2021 influenza virus vacc ine, unspecified formulation Geronimo Lee MD Work Phone: [facility] 12-04-2020 Pfizer SARS-CoV-2 Vaccination Geronimo Lee MD Work Phone: [facility] 11-13-2020 Pfizer SARS-CoV-2 Vaccination Geronimo Lee MD Work Phone: [facility] 01-14-2019 influenza, injectabl e, quadrivalent, preservative free Dom [facility] 01-14-2019 Influenza, Quadv, 6 mo and older, IM, PF (Flulaval, Fluarix) Justin Walsh [facility] 01-14-2019 Rosaura Woodson Work Phone: [facility] NEGATED: Highlighted row has not occurred!10-09-2023 Influenza, injectable, [place] [facility], preservative free, quadrivalent Rosaura Mustafa DO Work Phone: [employer] Comment on above: Deferred: Contraindi cation - patient received at facility Payers Date Payer Category Payer Medicaid HMO [id number] 2024 Medicare [id number] 2024 Self-pay [id number] 2023 Unknown [id number] 2022 Medicare [id number] 2022 Medicare HMO [id number] 2022 Private Health Insurance [facility] DUAL [facility] DUAL [id number] 2022-Present [phone] [address] [address] [place] [address] Medicare HMO [id number] 2022 Medicaid [place] - [place] [facility] [place] [id number] 2022-Present [address] [place] [address] Medicaid [id number] 2017 Private Health Insurance [facility] DUAL xxxxxxxxx 2017-Present [address] [place] [address] xxxxxxxxx [id number] 1959 Private Health Insurance [id number] Unknown [id number] [id number]. 462 Unknown [id number] 2.840.1.628622.3.579.2. 462 Unknown [id number] 2.840.1.201858.3.579.2. 462 Unknown [id number] 2.16840.1.341708.3.579.2. 462 Unknown [id number] 2.16840.1.553613.3.579.2. 462 Unknown [id number] 2.16840.1.543241.3.579.2. 462 Unknown [id number] 2.16840.1.166859.3.579.2. 462 Unknown [id number] 2.16840.1.147556.3.579.2. 462 Unknown [id number] 2.16.840.1.164648.3.579.2. 462 Unknown [id number] 2.16.840.1.792003.3.579.2. 462 Unknown [id number] 2.16.840.1.600031.3.579.2. 462 Unknown [id number] 2.16.840.1.327525.3.579.2. 462 Unknown [id number] 2.16.840.1.201622.3.579.2. 462 Unknown [id number] 2.16.840.1.742657.3.579.2. 462 Unknown [id number] 2.16.840.1.906089.3.579.2. 462 Unknown [id number] 2.16.840.1.933321.3.579.2. 462 Unknown [id number] 2.16.840.1.702162.3.579.2. 462 Unknown [id number] [id number]. 462 Social History Date Type Detail Facility Start: 06-26-2019 End: 02-01-2025 Tobacco smoking status NHIS Never smoker [place] Start: 06-26-2019 End: 10-19-2024 Alcohol intake No [facility] Start: 1965 Sex Assigned At Not on file M [place], [place] Start: 01-02-2020 End: 04-06-2025 Alcohol intake Current non-drinker of alcohol (finding) [place] Start: 09-20-2020 End: 02-01-2025 Tobacco use and exposure Never used [place] Start: 01-30-2023 End: 03-08-2023 Exposure to SARS-CoV-2 (event) Not sure [place] Start: 1965 Sex Assigned At Male [facility] Tobacco smoking status LAIS Tobacco smoking consumption unknown [employer] Work Phone: Start: 03-08-2023 History SDOH Alcohol Frequency 1 [facility] Start: 03-08-2023 History SDOH Alcohol Std Drinks 0 [facility] Start: 03-08-2023 End: 10-19-2024 History of Social function [facility] How often to you hav e a drink containing alcohol? Never [facility] How many standard drinks containing alcohol do you have on a typical day? Patient does not drink [facility] Start: 08-27-2022 Gender identity Identifies as male gender (finding) [facility] Within the last year , have you been afraid of your partner or ex-partner? No [facility] Start: 1965 Sex Assigned At Female [facility] How often to you hav e a drink containing alcohol? Monthly or less [facility] How many standard drinks containing alcohol do you have on a typical day? 1 or 2 [facility] Start: 06-08-2022 End: 02-28-2025 Sex Female (finding) [facility] Do you feel stress - tense, restless, nervous, or anxious, or unable to sleep at night because your mind is troubled all the time - these days [OSQ] Only a little [facility] (I/We) worried whether (my/our) food would run out before (I/we) got money to buy more. Never true [facility] How often do you nee d to have someone help you when you read instructions, pamphlets, or other written material from your doctor or pharmacy [SILS] Sometimes [facility] NEGATED: Highlighted rowStart: DAVEF History of tobacco use Passive smoker [facility] Clinical Notes 11-28-2020 to 05-07-2025 Telephone Encounter - Trinity Hamilton MA - 05/07/2025 4:24 PM EDTTelephone Encounter - Trinity Hamilton MA - 05/07/2025 4:24 PM EDKade Schultz PA-C - 04/06/2025 8:30 AM EDTAttachments Note Date & Type Note Facility 05-07-2025 Telephone encounter Note [facility] and informed[facility] 05-07-2025 Miscellaneous Notes [facility] and informed. Continue current doses Recommend future BGLs be sent in 4 week intervals. Or sooner if experiencing hypoglycemia or persistent elevations. Images from the original note were not included. Patient's BGL documented in this encounter [facility] 05-07-2025 Telephone encounter Note Continue current doses Recommend future BGLs be sent in 4 week intervals. Or sooner if experiencing hypoglycemia or persistent elevations. [facility] 05-07-2025 Telephone encounter Note Images from the original note were not included. Patient's BGL [facility] 05-01-2025 Telephone encounter Note Called patient nurse at prison and informed. [facility] 05-01-2025 Miscellaneous Notes Called patient nurse at prison and informed. Blood glucose log variable. 04/25-04/26 elevated. 04/27-04/30 at goal except for one check. Continue current doses and limit carbs/improve diet. Recommend future BGLs be sent in 4 week intervals. Or sooner if experiencing hypoglycemia or persistent elevations. Images from the original note were not included. Patient's BGL documented in this encounter [facility] 05-01-2025 Telephone encounter Note Blood glucose log variable. 04/25-04/26 elevated. 04/27-04/30 at goal except for one check. Continue current doses and limit carbs/improve diet. Recommend future BGLs be sent in 4 week intervals. Or sooner if experiencing hypoglycemia or persistent elevations. [facility] 04-30-2025 Telephone encounter Note Images from the original note were not included. Patient's BGL [facility] 04-20-2025 Telephone encounter Note Called and relayed the TE below to the pt's nurse. [facility] 04-20-2025 Miscellaneous Notes Called and relayed the TE below to the pt's nurse. Continue current doses. Future blood glucose log's requested to have 2 weeks of data. BGL downloaded in media for your review. Thanks documented in this encounter [facility] 04-19-2025 Miscellaneous Notes Continue current doses. Future blood glucose log's requested to have 2 weeks of data. BGL downloaded in media for your review. Thanks documented in this encounter [facility] 04-19-2025 Telephone encounter Note Continue current doses. Future blood glucose log's requested to have 2 weeks of data. [facility] 04-17-2025 Telephone encounter Note BGL downloaded in media for your review. Thanks [facility] 04-06-2025 History of Presen t illness Narrative Images from the original note were not included. [facility] [address] [place] [address] Dept: [phone] Dept Loc: [phone] Visit type: Established patient Reason for Visit: Follow-up and Diabetes Mellitus Assessment and Plan 1. Type 2 diabetes mellitus with hyperglycemia, with long-term current use of insulin ([facility]) - AMB POC HEMOGLOBIN A1C - Comprehensive metabolic panel - Microalbumin / creatinine urine ratio 2. Type 2 diabetes mellitus with diabetic autonomic neuropathy, with long-term current use of insulin ([facility]) 3. Hypertension associated with type 2 diabetes mellitus ([facility]) 4. Mixed diabetic hyperlipidemia associated with type 2 diabetes mellitus ([facility]) - Lipid panel 5. Class 3 severe obesity due to excess calories with serious comorbidity and body mass index (BMI) of 45.0 to 49.9 in adult 6. Microalbuminuria - Comprehensive metabolic panel - Microalbumin / creatinine urine ratio DM2 A1c 6.8 Goal A1C = <7.0. Glucose goal range: 100-150 Insulin is necessary for ongoing mgmt. FSBS to occur 4 times daily, be recorded, and send to office in 4 weeks for review. Patient will make the following changes to their antihyperglycemic regimen: U500 insulin to 150 before breakfast, 130 before lunch and 150 before dinner. If blood sugar before meal is 90-120, give half dose If less than 90 and patient eating little carbohydrates for meal, hold u500 dose. Continue Lantus 50 units BID Discussed GLP1 and SGLT2. Patient has taken GLP1 in past and experienced significant abdominal pain. Has history of cholesystitis. Also has past medical history of UTIs and Yeast infections. Do not recommend GLP1 or SGLT 2 in light of these circumstances. Polyneuropathy: Counseled patient that diabetes blood sugar control may prevent worsening of neuropathy. Jamilah DA SILVA 06/2019. Microalbuminuria: Counseled patient on need for diabetes control to reduce risk of kidney damage. Labs ordered for monitoring HTN: Controlled with BP 114/72 on Hydralazine, Carvedilol, Amlodipine, Lisinopril. HLD: on atorvastatin. Labs ordered for monitoring. Ldl 99, Trig 181 12/2024 Obesity: Uncontrolled with BMI of 48.1. Counseled patient on dietary changes for reduced blood sugar and decreased caloric intake. Pt counseled about these recommendations. Pt voiced understanding. These recommendations made based on interpretation of available data (which may include FSBS, A1C, venous sampling, or data from pt recall). I reviewed: laboratory results reviewed: Yes radiographic reports reviewed: No I reviewed the radiographic images personally at the time of today's visit: No Pt was advised of the results. Records from outside facility/PCP office to be requested: Yes Scripts sent to pharmacy of pt choice: Yes No follow-ups on file. Subjective HPI PCP is Jared Guzman Referring is PCP Previous District Sales Coordinator: [facility] visit: Inpatient 10/19/2024-10/23/2024 Last office visit: 12/2024 DM Onset: 2 Type of DM: 1991 Complications: Cardiovascular -- No Statin Use -- Yes Retinopathy -- No Last MAGUI/Retina Eval: Cataracts - Ophthalmology to be completed again this year. Last completed ~12 months ago. Nephropathy -- No MARY/ARB Use -- Yes Polyneuropathy -- Yes Foot Exam: 01/01/2025 Obesity -- Yes Other -- Yes Since last office visit denies new health problems, denies hospitalizations, and denies surgeries. Denies steroid use. Pt feels their blood sugars are better since RAN. No complaints Doing well with current regimen Pt c/o sxs at today's visit: No Pt c/o sxs of hyperglycemia at today's visit: No Pt c/o SEs from Medications at today's visit: No Pt voices concerns about cost of medications at today's visit: No Has been in [facility] since 2017 Staff manages his glucose levels with finger sticks Insulin pens Hyperglycemia present: Yes Hypoglycemia present: No Current DM Medications: U500 insulin to 150 before breakfast, 130 before lunch and 150 before dinner. If blood sugar before meal is 90-120, give half dose If less than 90 and patient eating little carbohydrates for meal, hold u500 dose. Lantus 50 units BID Taking Medications w/o Missed Doses: No Staff administers his u500 insulin Doses held but not indicated when they are held of blood sugar log Log present: Yes Reviewed w/ pt: Yes Scanned into Media: Yes Following Diet for DM: Yes 3 meals daily Breakfast: Sausage biscuits and gravy, OJ and Milk Lunch: Double Cheese burger, crystal light or diet pepsi, Veggies and Carb Dinner: Chicken aki, chicken fingers, couple slices of pizza Meats, Salad, tamazight or ranch dressing Beverages: Crystal light, Diet soda Snacks: Root beer float, ice cream, popcicles Snack cart: PB cheese crackers, Lays chips, 8 pm. Following Exercise Regimen: No No exercise Previously Used DM Meds: Yes Dulaglutide Lantus U500 Metformin U100 humalog NPH Review of Systems Constitutional: Negative for activity change, appetite change and unexpected weight change. Gastrointestinal: Negative for diarrhea, nausea and vomiting. Endocrine: Negative for polydipsia, polyphagia and polyuria. Genitourinary: Negative for dysuria. Skin: Negative for color change, pallor and wound. An entire ROS was performed at the time of this encounter. Unless noted above in the HPI, the ROS is negative. No Known Allergies Outpatient Medications Prior to Visit Medication Sig Dispense Refill amLODIPine (Norvasc) 10 MG tablet Take 1 tablet (10 mg) by mouth daily. ARIPiprazole (Abilify) 10 MG tablet Every 24 hours. aspirin 81 MG EC tablet Take 1 tablet by mouth daily. atorvastatin (Lipitor) 10 MG tablet Take 1 tablet by mouth daily. bisacodyl (Dulcolax) 5 MG EC tablet Take 5 mg by mouth Daily as needed for constipation. Do not crush, chew, or split. Calcium Carbonate (CALCIUM 500 PO) Take 1 tablet by mouth 2 times daily. carvedilol (Coreg) 25 MG tablet Take 1 tablet (25 mg) by mouth in the morning and 1 tablet (25 mg) in the evening. Take with meals. docusate sodium (Colace) 100 MG tablet Take 100 mg by mouth daily. ferrous sulfate 325 (65 Fe) MG tablet Take 1 tablet (325 mg) by mouth daily (with breakfast). FLUoxetine (PROzac) 40 MG capsule Take 40 mg by mouth daily. gabapentin (Neurontin) 100 MG capsule Take 100 mg by mouth in the morning and 100 mg before bedtime. hydrALAZINE (Apresoline) 25 MG tablet Take 25 mg by mouth 3 times daily. insulin glargine (Lantus) 100 UNIT/ML injection Inject 50 Units under the skin 2 times daily. (Patient taking differently: Inject 47 Units under the skin 2 times daily.) 50 mL 3 insulin regular (HumuLIN R) 500 UNIT/ML CONCENTRATED injection U500 150 before breakfast 130 before lunch and 150 units before dinner If blood sugar before meal is 90-120, give half dose If less than 90 and patient eating little carbohydrates for meal, hold u500 dose. lactulose 20 GM/30ML oral solution Take 20 g by mouth 2 times daily. lisinopril 40 MG tablet Take 0.5 tablets (20 mg) by mouth daily. magnesium hydroxide (Milk of Magnesia) 400 MG/5ML suspension Take 30 mL by mouth Nightly. melatonin 10 MG tablet Take 10 mg by mouth Nightly as needed (insomnia). metoclopramide (Reglan) 10 MG tablet Take 1 tablet (10 mg) by mouth 4 times daily (before meals and nightly). miconazole (Micotin) 2 % powder Apply topically if needed for itching. Multiple Vitamin (multivitamin) capsule Take 1 capsule by mouth daily. pantoprazole (ProtoNix) 40 MG EC tablet Take 40 mg by mouth. polyethylene glycol, PEG, 3350 (Glycolax) 17 GM/SCOOP powder Take 17 g by mouth daily. senna-docusate sodium (Senokot-S) 8.6-50 MG tablet Take 1 tablet by mouth daily. torsemide (Demadex) 10 MG tablet Take 1 tablet (10 mg) by mouth daily. triamcinolone (Kenalog) 0.1 % cream Apply topically daily. No facility-administered medications prior to visit. 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) Acquired absence of other toe(s), unspecified side ([facility]) Anxiety disorder Bipolar 1 disorder ([facility]) Blood circulation, collateral Cellulitis chronic L lower leg COVID 12/08/2021 Depression Diabetes mellitus ([facility]) Type II, on insulin Disease of blood and blood forming organ Endometrial carcinoma ([facility]) 11/25/2020 Endometrial hyperplasia Foot ulcer ([facility]) Hx of blood clots RLE prior to amputation Hyperlipidemia Hypertension Lymphedema 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, RLE Morbidly obese ([facility]) Muscle weakness Osteomyelitis ([facility]) Osteomyelitis ([facility]) 2019 RLE Other lack of coordination Other specified soft tissue disorders Other symbolic dysfunctions Schizophrenia ([facility]) Sleep apnea no CPAP Venous insufficiency Social History Tobacco Use Smoking status: Never Passive exposure: Never Smokeless tobacco: Never Substance Use Topics Alcohol use: No Past Surgical History: Procedure Laterality Date ABCESS DRAINAGE Right 09/09/2018 FOOT; [facility] COLONOSCOPY 09/19/[address] Hyde DILATION AND CURETTAGE OF UTERUS 05/18/2019 HYSTEROSCOPY 12/23/2021 LEG AMPUTATION THROUGH KNEE Right 06/16/2019 UPPER GASTROINTESTINAL ENDOSCOPY N/A 06/29/2023 Dr Serigo Sibley at [facility]; no specimens WISDOM TOOTH EXTRACTION Family History Problem Relation Name Age of Onset No Known Problems Mother No Known Problems Father Objective BP 114/72 Pulse 86 Ht 5' 6" (1.676 m) Wt 298 lb (135 kg) BMI 48.10 kg/m Physical Exam Vitals reviewed. Constitutional: Appearance: Normal appearance. He is obese. HENT: Head: Normocephalic and atraumatic. Nose: Nose normal. Pulmonary: Effort: Pulmonary effort is normal. Skin: General: Skin is warm and dry. Neurological: General: No focal deficit present. Mental Status: He is alert and oriented to person, place, and time. Psychiatric: Mood and Affect: Mood normal. Behavior: Behavior normal. Thought Content: Thought content normal. Judgment: Judgment normal. Data Reviewed and Summarized Labs: No components found for: LABA1C No components found for: "EAG" Lab Results Component Value Date NA 137 12/01/2024 K 3.4 (L) 12/01/2024 CL 102 12/01/2024 CO2 25 12/01/2024 CO2 23 02/09/2023 BUN 10 12/01/2024 BUN 26 (H) 02/09/2023 CREATININE 0.67 12/01/2024 CREATININE 0.86 02/09/2023 GLUCOSE 215 (H) 12/01/2024 GLUCOSE 433 (H) 02/09/2023 CALCIUM 9.0 12/01/2024 CALCIUM 9.2 02/09/2023 Lab Results Component Value Date CHLPL 125 08/29/2020 Lab Results Component Value Date TRIG 190 08/29/2020 Lab Results Component Value Date HDL 31 (A) 08/29/2020 Lab Results Component Value Date LDLCALC 56 08/29/2020 Lab Results Component Value Date VLDL 38 08/29/2020 No results found for: CHOLHDLRATIO No results found for: [id number] Imaging/Testing: Portions of the information within this encounter were entered using an electronic dictation system. Best attempts were made to edit/proofread the information prior to note completion. Despite the review of information, some errors may remain. If there are questions related to the information contained within the note please contact the signing physician directly. documented in this encounter [facility] 02-27-2025 Telephone encounter Note Images from the original note were not included. Patient's BGL [facility] 02-27-2025 Miscellaneous Notes Images from the original note were not included. Patient's BGL documented in this encounter [facility] 02-16-2025 Telephone encounter Note Faxed letter to preeth[facility] at fax #: [phone]. [facility] 02-16-2025 Miscellaneous Notes Faxed letter to [facility] at fax #: [phone]. I reviewed the blood glucose log. Blood sugars remain variable. Please increase U500 insulin to 150 before breakfast, 130 before lunch and 150 before dinner. If blood sugar before meal is 90-120, give half dose If less than 90 and patient eating little carbohydrates for meal, hold u500 dose. Thank you, JEREMY Schuster CNP Images from the original note were not included. Patient's BGL documented in this encounter [facility] 02-15-2025 Telephone encounter Note I reviewed the blood glucose log. Blood sugars remain variable. Please increase U500 insulin to 150 before breakfast, 130 before lunch and 150 before dinner. If blood sugar before meal is 90-120, give half dose If less than 90 and patient eating little carbohydrates for meal, hold u500 dose. Thank you, JEREMY Schuster CNP [facility] 02-15-2025 Telephone encounter Note Images from the original note were not included. Patient's BGL [facility] 02-13-2025 Telephone encounter Note Called [facility] [place] to offer cancel the C visit per provider. Visit canceled. [facility] 02-13-2025 Miscellaneous Notes Called [facility] [place] to offer cancel the [facility] visit per provider. Visit canceled. Lung nodule stable-does not need f/up CT reviewed-from Oct. He declined sleep med referral. I do not have to see him. I would recommend that they cancel f/up. Nodule unchanged for 2 yrs.. Nurse from [facility] called to schedule Annual follow up. Follow up scheduled for 03/02/2025. Patient is non weight bearing and uses a [facility]. Further question is whether they bring with [facility] or ambulance cot. Please advise. [facility] called stating that CT chest wo IV contrast order will before its completion. Requested new order to be placed. Please advise. documented in this encounter [facility] 02-12-2025 Note Lung nodule stable-d oes not need f/up CT reviewed-from Oct. He declined sleep med referral. I do not have to see him. I would recommend that they cancel f/up. Nodule unchanged for 2 yrs.. [facility] 02-12-2025 Telephone encounter Note Lung nodule stable-does not need f/up CT reviewed-from Oct. He declined sleep med referral. I do not have to see him. I would recommend that they cancel f/up. Nodule unchanged for 2 yrs.. [facility] [employer] Work Phone: 02-12-2025 Miscellaneous Notes Lung nodule stable-does not need f/up CT reviewed-from Oct. He declined sleep med referral. I do not have to see him. I would recommend that they cancel f/up. Nodule unchanged for 2 yrs.. Nurse from [facility] called to schedule Annual follow up. Follow up scheduled for 03/02/2025. Patient is non weight bearing and uses a deedee. Further question is whether they bring with deedee or ambulance cot. Please advise. [facility] called stating that CT chest wo IV contrast order will before its completion. Requested new order to be placed. Please advise. documented in this encounter [facility] 02-12-2025 Telephone encounter Note Nurse from [facility] called to schedule Annual follow up. Follow up scheduled for 03/02/2025. Patient is non weight bearing and uses a deedee. Further question is whether they bring with deedee or ambulance cot. Please advise. [facility] 02-09-2025 Telephone encounter Note Faxed new orders to [facility] at fax #: [phone]. [facility] 02-09-2025 Miscellaneous Notes Faxed new orders to [facility] at fax #: [phone]. I reviewed blood sugars. Blood sugars are extremely variable ranging from 108-539. Dietary intake is extremely important for blood sugar stability. Limiting carb intake to 75 grams of carbs per meal is important and snacks should be 15 grams of carbs or less. Please adjust u500 insulin to 145 before breakfast, 130 before lunch and 145 before dinner. Thanks! Breakfast Blood sugars: 219, 407, 173, 539 Lunch blood sugars: 147, 294, 158, 283 Dinner Blood sugars: 203, 285, 102 Bedtime Blood sugars: 302, 108, 194 Images from the original note were not included. Patient's BGL documented in this encounter [facility] 02-08-2025 Telephone encounter Note I reviewed blood sugars. Blood sugars are extremely variable ranging from 108-539. Dietary intake is extremely important for blood sugar stability. Limiting carb intake to 75 grams of carbs per meal is important and snacks should be 15 grams of carbs or less. Please adjust u500 insulin to 145 before breakfast, 130 before lunch and 145 before dinner. Thanks! Breakfast Blood sugars: 219, 407, 173, 539 Lunch blood sugars: 147, 294, 158, 283 Dinner Blood sugars: 203, 285, 102 Bedtime Blood sugars: 302, 108, 194 [facility] 02-08-2025 Miscellaneous Notes I reviewed blood sugars. Blood sugars are extremely variable ranging from 108-539. Dietary intake is extremely important for blood sugar stability. Limiting carb intake to 75 grams of carbs per meal is important and snacks should be 15 grams of carbs or less. Please adjust u500 insulin to 145 before breakfast, 130 before lunch and 145 before dinner. Thanks! Breakfast Blood sugars: 219, 407, 173, 539 Lunch blood sugars: 147, 294, 158, 283 Dinner Blood sugars: 203, 285, 102 Bedtime Blood sugars: 302, 108, 194 Images from the original note were not included. Patient's BGL documented in this encounter [facility] 02-08-2025 Telephone encounter [address] [facility] called stating that CT chest wo IV contrast order will before its completion. Requested new order to be placed. Please advise. [facility] 02-08-[address] [facility] called stating that CT chest wo IV contrast order will before its completion. Requested new order to be placed. Please advise. documented in this encounter [facility] 02-07-2025 Telephone encounter Note Images from the original note were not included. Patient's BGL [facility] 02-01-2025 History of Presen t illness Narrative Vascular Surgery Outpatient Consultation Chief Complaint Patient presents with New Patient Dr. Guzman/ venous insufficiency, arterial occlusion? Reason for Consult: PVD Requesting Physician: Dr. Guzman HISTORY OF PRESENTILLNESS: The patient is a 59 y.o. adult with significant medical hx listed below, who is here for evaluation of PAD. Pt is from [facility] [place]. He is in a wheelchair. He states he does not walk at all and spends most of his time in bed, only getting deedee lifted to his wheelchair "if he feels like it." Pt states he has been experiencing terrible left leg pain for the past month. He has been dealing with chronic LLE cellulitis as well. Pt tells me he had testing completed at his SNF that noted "blockage in his left leg." Pt has a hx of a right AKA and is very nervous about losing his left leg as well. No imaging reports from facility available for review--just notations submitted with referral stating DVT US negative , arterial vascular study with moderate stenosis across left SFA. Pt admits to chronic LLE edema as well. He states he has been told in the past he has lymphedema. He does not wear any compression garments or wraps. Pt is on an ASA and Statin He is a nonsmoker 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 other toe(s), unspecified side (HCC) Anxiety disorder Bipolar 1 disorder ([facility]) Blood circulation, collateral Cellulitis chronic L lower leg COVID 12/08/2021 Depression Diabetes mellitus ([facility]) Type II, on insulin Disease of blood and blood forming organ Endometrial carcinoma (HCC) 11/25/2020 Endometrial hyperplasia Foot ulcer (HCC) Hx of blood clots RLE prior to amputation Hyperlipidemia Hypertension Lymphedema 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, RLE Morbidly obese (HCC) Muscle weakness Osteomyelitis (HCC) Osteomyelitis (HCC) 2019 RLE Other lack of coordination Other specified soft tissue disorders Other symbolic dysfunctions Schizophrenia ([facility]) Sleep apnea no CPAP Venous insufficiency Past Surgical History: Past Surgical History: Procedure Laterality Date ABCESS DRAINAGE Right 09/09/2018 FOOT; ACH COLONOSCOPY 09/19/[address] Hyde DILATION AND CURETTAGE OF UTERUS 05/18/2019 HYSTEROSCOPY 12/23/2021 LEG AMPUTATION THROUGH KNEE Right 06/16/2019 UPPER GASTROINTESTINAL ENDOSCOPY N/A 06/29/2023 Dr Sergio Sibley at [facility]; no specimens WISDOM TOOTH EXTRACTION Current Medications: Prior to Admission medications Medication Sig Start Date End Date Taking? Authorizing Provider amLODIPine (Norvasc) 10 MG tablet Take 1 tablet (10 mg) by mouth daily. 01/12/24 Mateo Espitia MD ARIPiprazole (Abilify) 10 MG tablet Every 24 hours. Historical ProviderMD aspirin 81 MG EC tablet Take 1 tablet by mouth daily. 10/08/21 Historical ProviderMD atorvastatin (Lipitor) 10 MG tablet Take 1 tablet by mouth daily. 11/26/20 Historical ProviderMD bisacodyl (Dulcolax) 5 MG EC tablet Take 5 mg by mouth 2 times daily as needed for constipation. Do not crush, chew, or split. Historical Provider, carvedilol (Coreg) 25 MG tablet Take 1 tablet (25 mg) by mouth in the morning and 1 tablet (25 mg) in the evening. Take with meals. 01/11/24 Mateo Esptiia MD ferrous sulfate 325 (65 Fe) MG tablet Take 1 tablet (325 mg) by mouth daily (with breakfast). 01/11/24 Mateo Espitia MD FLUoxetine (PROzac) 40 MG capsule Take 40 mg by mouth daily. Historical Provider, gabapentin (Neurontin) 100 MG capsule Take 100 mg by mouth in the morning and 100 mg before bedtime. Historical Provider, hydrALAZINE (Apresoline) 25 MG tablet Take 25 mg by mouth 3 times daily. Historical Provider, insulin glargine (Lantus) 100 UNIT/ML injection Inject 47 Units under the skin 2 times daily. Historical ProviderMD insulin regular (HumuLIN R) 500 UNIT/ML CONCENTRATED injection U500 140 before breakfast 125 before lunch and 140 units before dinner If blood sugar before meal is 90-135, give half dose If less than 90 and patient eating little carbohydrates for meal, hold u500 dose. 01/01/25 Margo Guerrero, PERSONAL CARE SERVICE PROVIDER - [facility] lactulose (Kristalose) 20 g packet Take 20 g by mouth 2 times daily. Historical Provider, lisinopril 40 MG tablet Take 0.5 tablets (20 mg) by mouth daily. 10/16/23 Marcio Armando MD magnesium hydroxide (Milk of Magnesia) 400 MG/5ML suspension Take 30 mL by mouth Nightly. Historical Provider, melatonin 10 MG tablet Take 10 mg by mouth Nightly as needed (insomnia). Historical Provider, metoclopramide (Reglan) 10 MG tablet Take 1 tablet (10 mg) by mouth 4 times daily (before meals and nightly). 01/11/24 Mateo Espitia MD miconazole (Micotin) 2 % powder Apply topically if needed for itching. Historical Provider, Multiple Vitamin (multivitamin) capsule Take 1 capsule by mouth daily. Historical Provider, pantoprazole (ProtoNix) 40 MG EC tablet Take 40 mg by mouth. 11/26/20 Historical Provider, polyethylene glycol, PEG, 3350 (Glycolax) 17 GM/SCOOP powder Take 17 g by mouth daily. Historical Provider, senna-docusate sodium (Senokot-S) 8.6-50 MG tablet Take 1 tablet by mouth daily. Historical Provider, torsemide (Demadex) 10 MG tablet Take 1 tablet (10 mg) by mouth daily. 01/12/24 Mateo Espitia MD triamcinolone (Kenalog) 0.1 % cream Apply topically daily. Historical Provider, Allergies: Patient has no known allergies. Social History Socioeconomic History Marital status: Single Spouse name: Not on file Number of children: Not on file Years of education: Not on file Highest education level: Not on file Occupational History Not on file Tobacco Use Smoking status: Never Passive exposure: Never Smokeless tobacco: Never Vaping Use Vaping status: Never Used Substance and Sexual Activity Alcohol use: No Drug use: Never Sexual activity: Not on file Other Topics Concern Not on file Social History Narrative Not on file 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 Health Financial Resource Strain: Not on file Food Insecurity: No Food Insecurity (10/19/2024) Hunger Vital Sign Worried About Running Out of Food in the Last Year: Never true Ran Out of Food in the Last Year: Never true Transportation Needs: No Transportation Needs (10/19/2024) PRAPARE - Transportation Lack of Transportation (Medical): No Lack of Transportation (Non-Medical): No Physical Activity: Not on file Stress: No Stress Concern Present (10/19/2024) [employer] [place] [employer] - Occupational Stress Questionnaire Feeling of Stress : Only a little Social Connections: Unknown (10/19/2024) Social Connection and Isolation Panel [NHANES] Frequency of Communication with Friends and Family: Three times a week Frequency of Social Gatherings with Friends and Family: Once a week Attends [employer] Services: 1 to 4 times per year Active Member of Clubs or Organizations: No Attends Club or Organization Meetings: Never Marital Status: Patient declined Intimate Partner Violence: Not At Risk (10/19/2024) Humiliation, Afraid, Rape, and Kick questionnaire Fear of Current or Ex-Partner: No Emotionally Abused: No Physically Abused: No Sexually Abused: No Housing Stability: Low Risk (10/19/2024) Housing Stability Vital Sign Unable to Pay for Housing in the Last Year: No Number of Times Moved in the Last Year: 0 Homeless in the Last Year: No Family History Problem Relation Name Age of Onset No Known Problems Mother No Known Problems Father Review of Systems Constitutional: Negative. HENT: Negative. Eyes: Positive for visual disturbance (BASELINE). Respiratory: Positive for shortness of breath. Cardiovascular: Positive for leg swelling. Gastrointestinal: Negative. Endocrine: Negative. Genitourinary: Negative. Musculoskeletal: Positive for gait problem (wheelchair), joint swelling and myalgias (L leg, shoulders). Skin: Positive for rash (LLE cellulitis issues). Allergic/Immunologic: Negative. Neurological: Positive for dizziness (when laying down), weakness (LLE), numbness (LLE) and headaches. Hematological: Bruises/bleeds easily. Psychiatric/Behavioral: Negative. LABS: Lab Results Component Value Date CREATININE 0.67 12/01/2024 Lab Results Component Value Date WBC 8.8 11/30/2024 HGB 12.0 11/30/2024 HCT 37.5 11/30/2024 MCV 83.9 11/30/2024 PLT 384 11/30/2024 Lab Results Component Value Date INR 1.3 (H) 10/19/2024 PROTIME 14.0 (H) 10/19/2024 Lab Results Component Value Date VLDL 38 08/29/2020 Physical Exam Constitutional: Appearance: Normal appearance. He is morbidly obese. Comments: In wheelchair HENT: Head: Normocephalic and atraumatic. Cardiovascular: Rate and Rhythm: Normal rate and regular rhythm. Pulses: Radial pulses are 2+ on the right side and 2+ on the left side. Dorsalis pedis pulses are 2+ on the left side. Posterior tibial pulses are detected w/ Doppler on the left side. Comments: Right AKA Left pretibial area erythematous, TTP Pt unable to left leg Pulmonary: Effort: Pulmonary effort is normal. Breath sounds: Normal breath sounds. Abdominal: General: Abdomen is flat. Palpations: Abdomen is soft. Musculoskeletal: General: Normal range of motion. Cervical back: Neck supple. Left lower leg: Edema present. Skin: General: Skin is warm and dry. Neurological: General: No focal deficit present. Mental Status: He is alert and oriented to person, place, and time. Psychiatric: Mood and Affect: Mood normal. Behavior: Behavior normal. IMPRESSION/RECOMMENDATIONS: Problem List Items Addressed This Visit Circulatory PAD (peripheral artery disease) (HCC) - Primary Relevant Orders Vascular US lower extremity arterial PVR Other Visit Diagnoses Hx of AKA (above knee amputation), right (HCC) Lymphedema of left leg Morbid obesity (HCC) Pt with hx of right AKA and per SNF, "moderate stenosis of SFA". Given his hx of right AKA reasonable to obtain a PVR for completeness, however, the real issue for his ongoing LLE swelling and cellulitis has more to do with his lymphedema. Would recommend compression and elevation to extremity to assist with this. Given size of patient's leg, compression stockings would likely not be beneficial--would opt for wraps Pt should continue on ASA/Statin and f/u with PCP for further atherosclerotic risk factor reduction Will call with results of PVR documented in this encounter [facility] 01-31-2025 Telephone encounter Note Called linda/jesus Moise released message as written, she stated that she understood. [facility] 01-31-2025 Miscellaneous Notes Called linda/jesus Moise released message as written, she stated that she understood. Blood sugars are extremely variable. Breakfast blood sugars can vary between 101-304 Lunch blood sugars between 135-308 Dinner variations between 93-336 Insulin doses can not be modified for riskof hypoglyamcia or hyperglycemia. Limit oral intake to 60 grams of carbs per meal and 15 grams of carbs/snack. Images from the original note were not included. Patient's BGL documented in this encounter [facility] 01-30-2025 Telephone encounter Note Blood sugars are extremely variable. Breakfast blood sugars can vary between 101-304 Lunch blood sugars between 135-308 Dinner variations between 93-336 Insulin doses can not be modified for riskof hypoglyamcia or hyperglycemia. Limit oral intake to 60 grams of carbs per meal and 15 grams of carbs/snack. [facility] 01-29-2025 Telephone encounter Note Images from the original note were not included. Patient's BGL [facility] 01-19-2025 Telephone encounter Note Faxed orders to [facility] at fax #: [phone]. [facility] 01-19-2025 Miscellaneous Notes Faxed orders to kim[facility]ly frias at fax #: [phone]. I reviewed blood sugar logs. Blood sugars are variable ranging from 97-320. I do not see any hypoglycemic events. No changes to current medication doses at this time. Changing doses would patient put patient at risk for further variations in blood sugars. Diet and exercise are the foundation for blood sugar control limiting carbohydrate to 60 g of carbs per meal and 15 g of carbs per snack will ideally help with stabilizing blood sugars in addition to the current medication doses. Images from the original note were not included. Patients BGL documented in this encounter [facility] 01-17-2025 Telephone encounter Note I reviewed blood sugar logs. Blood sugars are variable ranging from 97-320. I do not see any hypoglycemic events. No changes to current medication doses at this time. Changing doses would patient put patient at risk for further variations in blood sugars. Diet and exercise are the foundation for blood sugar control limiting carbohydrate to 60 g of carbs per meal and 15 g of carbs per snack will ideally help with stabilizing blood sugars in addition to the current medication doses. [facility] 01-15-2025 Telephone encounter Note Images from the original note were not included. Patients BGL [facility] 01-02-2025 Telephone encounter Note Labs Noted [facility] 01-02-2025 Miscellaneous Notes Labs Noted Images from the original note were not included. Requested BGLs and a recent CMP was received , please advise. documented in this encounter [facility] 01-01-2025 Telephone encounter Note Images from the original note were not included. Requested BGLs and a recent CMP was received , please advise. [facility] 01-01-2025 History of Presen t illness Narrative Images from the original note were not included. [facility] - [place] [address] [facility] [address] [facility] [address] Dept: [phone] Dept Loc: [phone] Visit type: Established patient Reason for Visit: Hospital Follow-up, Diabetes Mellitus, and Hyperglycemia Assessment and Plan 1. Type 2 diabetes mellitus with hyperglycemia, with long-term current use of insulin ([facility]) - Microalbumin / creatinine urine ratio 2. Type 2 diabetes mellitus with diabetic autonomic neuropathy, with long-term current use of insulin ([facility]) 3. S/P AKA (above knee amputation) unilateral, right ([facility]) 4. Mixed hyperlipidemia - Lipid panel 5. Microalbuminuria 6. Essential hypertension 7. Class 3 severe obesity due to excess calories with serious comorbidity and body mass index (BMI) of 45.0 to 49.9 in adult ([facility]) A1c 6.9 as of 10/19/2024. Patient hospitalized with acute kidney injury at this time with EGFR of 55% and hemoglobin of 10.9. A1c may be unreliable. Goal A1C = <7.0. Glucose goal range: 100-150 Insulin is necessary for ongoing mgmt. FSBS to occur 4 times daily, be recorded, and send to office in 4 weeks for review. Patient will make the following changes to their antihyperglycemic regimen: Decrease U-500 to 140/125/140 units TID before meals If blood sugar before meal is 90-135, give half dose If less than 90 and patient eating little carbohydrates for meal, hold u500 dose. Continue Lantus 47 units BID Patient has insulin doses held at times when blood sugar in the 130s or less. Blood sugars are extremely variable and dependent on patient's oral intake. Counseled patient to reduce evening snacks from the 8 PM snack cart or choose high-protein snacks such as nuts. Blood sugar log does not indicate when blood sugars are held. Counseled staff that was present in the room and in the after visit summary to please notate when insulin doses are held or reduced. Discussed GLP1 and SGLT2. Patient has taken GLP1 in past and experienced significant abdominal pain. Has history of cholesystitis. Triglycerides elevated at 284 as of 02/2023. Also has past medical history of UTIs and Yeast infections. Do not recommend GLP1 or SGLT 2 in light of these circumstances. Counseled patient to reduce pizza intake from 5 slices at dinner to no more than 3 slices at dinner patient reports they do not want remains away. SNF staff stated that they can left older than his left back for future meals. Patient is agreeable to try this. Polyneuropathy: Uncontrolled with left foot numbness and pain. Foot exam completed today during visit and has sensation but reports pain. Counseled patient that diabetes blood sugar control may prevent worsening of neuropathy. Jamilah DA SILVA 06/2019. Microalbuminuria: Uncontrolled at >1,140 as of 01/07/2024. Counseled patient on need for diabetes control to reduce risk of kidney damage. Counseled patient that without blood sugar control kidney failure is a very good possibility based on the current microalbumin. Labs ordered for monitoring HTN: Controlled with BP 128/62 on Hydralazine, Carvedilol, Amlodipine, Lisinopril. HLD: LDL 93 and Triglycerides 284 as of 02/09/2023 on atorvastatin. Labs ordered for monitoring. Obesity: Uncontrolled with BMI of 48.1. Counseled patient on dietary changes for reduced blood sugar and decreased caloric intake. Pt counseled about these recommendations. Pt voiced understanding. These recommendations made based on interpretation of available data (which may include FSBS, A1C, venous sampling, or data from pt recall). I reviewed: laboratory results reviewed: Yes radiographic reports reviewed: No I reviewed the radiographic images personally at the time of today's visit: No Pt was advised of the results. Records from outside facility/PCP office to be requested: Yes Scripts sent to pharmacy of pt choice: Yes Follow up in about 4 months (around 05/01/2025). Subjective HPI PCP is Jared Guzman Referring is PCP Previous District Sales Coordinator: [facility] visit: Inpatient 10/19/2024-10/23/2024 Last office visit: DM Onset: 2 Type of DM: 1991 Complications: Cardiovascular -- No Statin Use -- Yes Retinopathy -- No Last MAGUI/Retina Eval: Cataracts - Ophthalmology to be completed again this year. Last completed ~12 months ago. Nephropathy -- No MARY/ARB Use -- Yes Polyneuropathy -- Yes Foot Exam: 01/01/2025 Obesity -- Yes Other -- Yes Pt complaints include: Hypoglycemia - 3 times since October Since last office visit denies new health problems, denies hospitalizations, and denies surgeries. Pt feels their blood sugars are unchanged since RAN. Pt c/o sxs at today's visit: No Pt c/o sxs of hyperglycemia at today's visit: No Pt c/o SEs from Medications at today's visit: No Pt voices concerns about cost of medications at today's visit: No Has been in [facility] since 2017, Staff manages his glucose levels with finger sticks He received insulin from pens Hyperglycemia present: No Hypoglycemia present: No Current DM Medications: U-500 to 140 Continue Lantus 47 units BID Taking Medications w/o Missed Doses: No Staff administers his u500 insulin Doses held but not indicated when they are held of blood sugar log Log present: Yes Reviewed w/ pt: Yes Scanned into Media: Yes Following Diet for DM: Yes 3 meals daily Breakfast: Sausage biscuits and gravy, OJ and Milk Lunch: Double Cheese burger, crystal light or diet pepsi, Veggies and Carb Dinner: Chicken aki, chicken fingers, couple slices of pizza Meats, Salad, tamazight or ranch dressing Beverages: Crystal light, Diet soda Snacks: Root beer float, ice cream, popcicles Snack cart: PB cheese crackers, Lays chips, 8 pm. Following Exercise Regimen: No No exercise Previously Used DM Meds: Yes Dulaglutide Lantus U500 Metformin U100 humalog NPH Review of Systems Constitutional: Negative for activity change, appetite change, chills, fatigue, fever and unexpected weight change. HENT: Negative for trouble swallowing and voice change. Eyes: Negative for visual disturbance. Respiratory: Negative for chest tightness and shortness of breath. Cardiovascular: Negative for chest pain, palpitations and leg swelling. Gastrointestinal: Negative for abdominal pain, constipation, diarrhea, nausea and vomiting. Endocrine: Negative for polydipsia, polyphagia and polyuria. Genitourinary: Negative for difficulty urinating. Skin: Negative for rash and wound. Neurological: Negative for weakness. Psychiatric/Behavioral: Negative for sleep disturbance. All other systems reviewed and are negative. An entire ROS was performed at the time of this encounter. Unless noted above in the HPI, the ROS is negative. No Known Allergies Outpatient Medications Prior to Visit Medication Sig Dispense Refill amLODIPine (Norvasc) 10 MG tablet Take 1 tablet (10 mg) by mouth daily. ARIPiprazole (Abilify) 10 MG tablet Every 24 hours. aspirin 81 MG EC tablet Take 1 tablet by mouth daily. atorvastatin (Lipitor) 10 MG tablet Take 1 tablet by mouth daily. bisacodyl (Dulcolax) 5 MG EC tablet Take 5 mg by mouth 2 times daily as needed for constipation. Do not crush, chew, or split. carvedilol (Coreg) 25 MG tablet Take 1 tablet (25 mg) by mouth in the morning and 1 tablet (25 mg) in the evening. Take with meals. ferrous sulfate 325 (65 Fe) MG tablet Take 1 tablet (325 mg) by mouth daily (with breakfast). FLUoxetine (PROzac) 40 MG capsule Take 40 mg by mouth daily. gabapentin (Neurontin) 100 MG capsule Take 100 mg by mouth in the morning and 100 mg before bedtime. hydrALAZINE (Apresoline) 25 MG tablet Take 25 mg by mouth 3 times daily. insulin glargine (Lantus) 100 UNIT/ML injection Inject 47 Units under the skin 2 times daily. lactulose (Kristalose) 20 g packet Take 20 g by mouth 2 times daily. lisinopril 40 MG tablet Take 0.5 tablets (20 mg) by mouth daily. magnesium hydroxide (Milk of Magnesia) 400 MG/5ML suspension Take 30 mL by mouth Nightly. melatonin 10 MG tablet Take 10 mg by mouth Nightly as needed (insomnia). metoclopramide (Reglan) 10 MG tablet Take 1 tablet (10 mg) by mouth 4 times daily (before meals and nightly). miconazole (Micotin) 2 % powder Apply topically if needed for itching. Multiple Vitamin (multivitamin) capsule Take 1 capsule by mouth daily. pantoprazole (ProtoNix) 40 MG EC tablet Take 40 mg by mouth. polyethylene glycol, PEG, 3350 (Glycolax) 17 GM/SCOOP powder Take 17 g by mouth daily. senna-docusate sodium (Senokot-S) 8.6-50 MG tablet Take 1 tablet by mouth daily. torsemide (Demadex) 10 MG tablet Take 1 tablet (10 mg) by mouth daily. triamcinolone (Kenalog) 0.1 % cream Apply topically daily. insulin regular (HumuLIN R) 500 UNIT/ML CONCENTRATED injection Inject 140 Units under the skin 3 times daily. No facility-administered medications prior to visit. 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) Acquired absence of other toe(s), unspecified side ([facility]) Anxiety disorder Bipolar 1 disorder ([facility]) Blood circulation, collateral Cellulitis chronic L lower leg COVID 12/08/2021 Depression Diabetes mellitus ([facility]) Type II, on insulin Disease of blood and blood forming organ Endometrial carcinoma ([facility]) 11/25/2020 Endometrial hyperplasia Foot ulcer ([facility]) Hx of blood clots RLE prior to amputation Hyperlipidemia Hypertension Lymphedema 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, RLE Morbidly obese ([facility]) Muscle weakness Osteomyelitis ([facility]) Osteomyelitis ([facility]) 2019 RLE Other lack of coordination Other specified soft tissue disorders Other symbolic dysfunctions Schizophrenia ([facility]) Sleep apnea no CPAP Venous insufficiency Social History Tobacco Use Smoking status: Never Smokeless tobacco: Never Substance Use Topics Alcohol use: No Past Surgical History: Procedure Laterality Date ABCESS DRAINAGE Right 09/09/2018 FOOT; [facility] COLONOSCOPY 09/19/[address] Hyde DILATION AND CURETTAGE OF UTERUS 05/18/2019 HYSTEROSCOPY 12/23/2021 LEG AMPUTATION THROUGH KNEE Right 06/16/2019 UPPER GASTROINTESTINAL ENDOSCOPY N/A 06/29/2023 Dr Sergio Sibley at [facility]; no specimens WISDOM TOOTH EXTRACTION Family History Problem Relation Name Age of Onset No Known Problems Mother No Known Problems Father Objective BP 128/62 Pulse 72 Ht 5' 6" (1.676 m) Wt 298 lb (135 kg) BMI 48.10 kg/m Physical Exam Vitals reviewed. Constitutional: General: He is not in acute distress. Appearance: Normal appearance. He is not ill-appearing, toxic-appearing or diaphoretic. HENT: Head: Normocephalic and atraumatic. Nose: Nose normal. Mouth/Throat: Mouth: Mucous membranes are moist. Eyes: General: No scleral icterus. Right eye: No discharge. Left eye: No discharge. Conjunctiva/sclera: Conjunctivae normal. Cardiovascular: Pulses: Dorsalis pedis pulses are 1+ on the left side. Posterior tibial pulses are 1+ on the left side. Pulmonary: Effort: Pulmonary effort is normal. No respiratory distress. Musculoskeletal: Cervical back: Normal range of motion. Right lower leg: Edema present. Left lower leg: Edema present. Right Lower Extremity: Right leg is amputated above knee. Feet: Left foot: Protective Sensation: 9 sites tested. 6 sites sensed. Skin integrity: Callus and dry skin present. Skin: General: Skin is warm. Neurological: General: No focal deficit present. Mental Status: He is alert and oriented to person, place, and time. Psychiatric: Mood and Affect: Mood normal. Behavior: Behavior normal. Data Reviewed and Summarized Labs: No components found for: LABA1C No components found for: "EAG" Lab Results Component Value Date NA 137 12/01/2024 K 3.4 (L) 12/01/2024 CL 102 12/01/2024 CO2 25 12/01/2024 CO2 23 02/09/2023 BUN 10 12/01/2024 BUN 26 (H) 02/09/2023 CREATININE 0.67 12/01/2024 CREATININE 0.86 02/09/2023 GLUCOSE 215 (H) 12/01/2024 GLUCOSE 433 (H) 02/09/2023 CALCIUM 9.0 12/01/2024 CALCIUM 9.2 02/09/2023 Lab Results Component Value Date CHLPL 125 08/29/2020 Lab Results Component Value Date TRIG 190 08/29/2020 Lab Results Component Value Date HDL 31 (A) 08/29/2020 Lab Results Component Value Date LDLCALC 56 08/29/2020 Lab Results Component Value Date VLDL 38 08/29/2020 No results found for: CHOLHDLRATIO No results found for: [id number] Imaging/Testing: Portions of the information within this encounter were entered using an electronic dictation system. Best attempts were made to edit/proofread the information prior to note completion. Despite the review of information, some errors may remain. If there are questions related to the information contained within the note please contact the signing physician directly. documented in this encounter [facility] 01-01-2025 Instructions JEREMY Vincent CNP - 01/01/2025 11:00 AM EST Please send Ophthalmology Note once completed this year. Please note if any insulin doses are held on blood log. documented in this encounter [facility] 12-29-2024 Telephone encounter Note Called VAN strauss/jesus Ocasio released message as written, no insulin has been held. [facility] 12-29-2024 Miscellaneous Notes Called VAN strauss/jesus Ocasio released message as written, no insulin has been held. Roberto Ocasio I received the BGL Log from 12/08/2024-12/18/2024. There was no indication of any held doses of u500 insulin and the patient has not had any lows. Have any doses been held? I can't answer this question accurately until I know if any doses have been held in the past. Based on the BGL log, if all doses have been given in the past 2 weeks. There blood sugars have been stable with the current doses and if they are not having lows, and insulin is given before the meal, there should not be insulin held as the blood sugars have not been low. If there have been insulin doses held, I will need those indicated on the BLG log for adequate interpretation and management of the insulin doses. Thanks! Please advise. Name of caller: Ninfa Contact phone number: [phone] Relationship to Patient: [facility] Provider: KRANTHI Guerrero Practice: [facility] [place] [facility] Chief Complaint/Reason for Call: Ninfa states she would like to know at what point should they hold the insulin regular (HumuLIN R) 500 UNIT/ML CONCENTRATED injection for the patient. Please review. Best time of day caller can be reached: any Patient advised that office/PCP has 24-48 business hours to return their call: Yes Images from the original note were not included. Faxed orders from [facility]ia to [facility] I have reviewed the pt's glucose log. Based on interpretation of the FSBS data I recommend the following changes to the pt's antihyperglycemic regimen: No changes to current regimen. Blood sugars are variable ranging from 80-334. Increasing doses would put patient at risk for hypoglycemia. Dietary changes for limiting carb intake to 60 grams of carbs per meal and snacks of 15 grams of carbs will assist with stabilizing blood sugars. Thanks! Images from the original note were not included. Patients BGL documented in this encounter [facility] 12-27-2024 Telephone encounter Note Roberto Davisie, I received the BGL Log from 12/08/2024-12/18/2024. There was no indication of any held doses of u500 insulin and the patient has not had any lows. Have any doses been held? I can't answer this question accurately until I know if any doses have been held in the past. Based on the BGL log, if all doses have been given in the past 2 weeks. There blood sugars have been stable with the current doses and if they are not having lows, and insulin is given before the meal, there should not be insulin held as the blood sugars have not been low. If there have been insulin doses held, I will need those indicated on the BLG log for adequate interpretation and management of the insulin doses. Thanks! [facility] 12-27-2024 Miscellaneous Notes Hi Ninfa, I received the BGL Log from 12/08/2024-12/18/2024. There was no indication of any held doses of u500 insulin and the patient has not had any lows. Have any doses been held? I can't answer this question accurately until I know if any doses have been held in the past. Based on the BGL log, if all doses have been given in the past 2 weeks. There blood sugars have been stable with the current doses and if they are not having lows, and insulin is given before the meal, there should not be insulin held as the blood sugars have not been low. If there have been insulin doses held, I will need those indicated on the BLG log for adequate interpretation and management of the insulin doses. Thanks! Please advise. Name of caller: Ninfa Contact phone number: [phone] Relationship to Patient: Preethi Frias Provider: KRANTHI Guerrero Practice: [facility] [place] [facility] Chief Complaint/Reason for Call: Ninfa states she would like to know at what point should they hold the insulin regular (HumuLIN R) 500 UNIT/ML CONCENTRATED injection for the patient. Please review. Best time of day caller can be reached: any Patient advised that office/PCP has 24-48 business hours to return their call: Yes Images from the original note were not included. Faxed orders from [facility] to [facility] I have reviewed the pt's glucose log. Based on interpretation of the FSBS data I recommend the following changes to the pt's antihyperglycemic regimen: No changes to current regimen. Blood sugars are variable ranging from 80-334. Increasing doses would put patient at risk for hypoglycemia. Dietary changes for limiting carb intake to 60 grams of carbs per meal and snacks of 15 grams of carbs will assist with stabilizing blood sugars. Thanks! Images from the original note were not included. Patients BGL documented in this encounter [facility] 12-22-2024 Telephone encounter Note Please advise. [facility] 12-22-2024 Miscellaneous Notes Please advise. Name of caller: Ninfa Contact phone number: [phone] Relationship to Patient: [facility] Provider: KRANTHI Guerrero Practice: [facility] [place] [facility]ology Chief Complaint/Reason for Call: Ninfa states she would like to know at what point should they hold the insulin regular (HumuLIN R) 500 UNIT/ML CONCENTRATED injection for the patient. Please review. Best time of day caller can be reached: any Patient advised that office/PCP has 24-48 business hours to return their call: Yes Images from the original note were not included. Faxed orders from [facility] to [facility] I have reviewed the pt's glucose log. Based on interpretation of the FSBS data I recommend the following changes to the pt's antihyperglycemic regimen: No changes to current regimen. Blood sugars are variable ranging from 80-334. Increasing doses would put patient at risk for hypoglycemia. Dietary changes for limiting carb intake to 60 grams of carbs per meal and snacks of 15 grams of carbs will assist with stabilizing blood sugars. Thanks! Images from the original note were not included. Patients BGL documented in this encounter [facility] 12-22-2024 Telephone encounter Note Name of caller: Ninfa Contact phone number: [phone] Relationship to Patient: [facility] Provider: KRANTHI Guerrero Practice: [facility] [place] [facility] Chief Complaint/Reason for Call: Ninfa states she would like to know at what point should they hold the insulin regular (HumuLIN R) 500 UNIT/ML CONCENTRATED injection for the patient. Please review. Best time of day caller can be reached: any Patient advised that office/PCP has 24-48 business hours to return their call: Yes [facility] 12-22-2024 Telephone encounter Note Images from the original note were not included. Faxed orders from [facility] to [facility] 12-21-2024 History of Presen t illness Narrative Patient was verified by name and . Images from the original note were not included. [facility] [address] [place] [address] Dept: [phone] Dept Loc: [phone] Visit type: New Reason for Visit: New Patient, Abdominal Pain, Nausea (After eating), Bloated, and Rectal Bleeding (Blood in stool, referred by ER) Assessment and Plan Problem List Items Addressed This Visit None Visit Diagnoses Fecal occult blood test positive - Primary Relevant Medications polyethylene glycol (GaviLyte-G) 236 g solution History of anemia Relevant Medications polyethylene glycol (GaviLyte-G) 236 g solution Calculus of gallbladder without cholecystitis without obstruction BMI 50.0-59.9, adult ([facility]) 59 year old male referred by Rosy Ibarra CNP, re: calculus of gallbladder without cholecystitis without obstruction. Patient hospitalized 10/18/2024-10/23/[address] [facility] 2/2 acute cholecystitis. Blood sugars uncontrolled and patient deemed high risk for surgery, perc cholecystostomy tube placed. Patient inadvertently removed tube. Most recent abdominal US 11/30/2024 without acute cholecystitis. No further intervention from surgery planned at this time. Patient reports ongoing abdominal pain and bloating. Positive GES 2019. FOBT positive during recent admission. Mild anemia noted during admission. Presently patient unaware if he is having any overt signs of bleeding. --schedule EGD and colonoscopy in main hospital endoscopy for evaluation of positive FOBT, r/o GI bleeding --this is patient's first colonoscopy --referral previously placed to [facility] Advised patient to call office with new or worsening symptoms, questions, or concerns. Patient verbalized understanding and agreement of plan. Follow up in about 2 weeks (around 01/04/2025) for EGD/Colonoscopy results . Subjective Abdominal Pain Associated symptoms include hematochezia. Pertinent negatives include no constipation, diarrhea, nausea or vomiting. Rectal Bleeding Associated symptoms include abdominal pain. Pertinent negatives include no chest pain, nausea, vomiting or weakness. Patient is referred by Rosy Ibarra CNP, re: calculus of gallbladder without cholecystitis without obstruction. [facility] He has pmh DM2, morbid obesity, bipolar, schizophrenia, JOHN, lymphedema, HTN, diabetic neuropathy, and hx osteomyelitis of RLE with right AKA. Patient was hospitalized 10/18/2024-10/23/[address] [facility] related to acute cholecystitis. Due to medical comorbidities, operative intervention high risk-->he is s/p percutaneous cholecystostomy tube. FOBT positive during admission. He was evaluated by inpatient GI team, no inpatient scopes. Was advised to follow-up with outpatient GI. Most recent CBC without anemia. Hgb mildly decreased during admission, ~ 10. He is unsure if he has seen overt signs of bleeding-requires assistance toileting. He is taking lactulose for constipation. Having daily BM with medication. Patient with three ED visits since hospital admission. Patient inadvertently removed perc cholesystostomy. Was last seen by gen surgery - 12/07/2024-medical optimization (uncontrolled DM) and weight loss recommended prior to surgical intervention. He was referred to [facility]. Presently denies nausea and vomiting. Having mid abdominal pain-this is primarily postprandial. Last month having associated vomiting, this has since resolved. Notes bloating and gas pain. Prior colonoscopy: none Prior EGD: 06/2023 normal exam Prior abdominal surgeries: hysterectomy Family history of colon cancer: unknown NSAID use: none OAC: none Supplemental oxygen use: none Tobacco use: none EtOH use: none Illicit drug use: none Review of Systems Constitutional: Negative for appetite change and unexpected weight change. HENT: Negative for trouble swallowing and voice change. Respiratory: Negative for shortness of breath. Cardiovascular: Negative for chest pain. Gastrointestinal: Positive for abdominal pain and hematochezia. Negative for abdominal distention, anal bleeding, blood in stool, constipation, diarrhea, nausea, rectal pain and vomiting. Genitourinary: Negative for difficulty urinating. Skin: Negative for color change. Neurological: Negative for weakness. No Known Allergies Outpatient Medications Prior to Visit Medication Sig Dispense Refill amLODIPine (Norvasc) 10 MG tablet Take 1 tablet (10 mg) by mouth daily. ARIPiprazole (Abilify) 10 MG tablet Every 24 hours. aspirin 81 MG EC tablet Take 1 tablet by mouth daily. atorvastatin (Lipitor) 10 MG tablet Take 1 tablet by mouth daily. bisacodyl (Dulcolax) 5 MG EC tablet Take 5 mg by mouth 2 times daily as needed for constipation. Do not crush, chew, or split. carvedilol (Coreg) 25 MG tablet Take 1 tablet (25 mg) by mouth in the morning and 1 tablet (25 mg) in the evening. Take with meals. ferrous sulfate 325 (65 Fe) MG tablet Take 1 tablet (325 mg) by mouth daily (with breakfast). FLUoxetine (PROzac) 40 MG capsule Take 40 mg by mouth daily. gabapentin (Neurontin) 100 MG capsule Take 100 mg by mouth in the morning and 100 mg before bedtime. hydrALAZINE (Apresoline) 25 MG tablet Take 25 mg by mouth 3 times daily. insulin glargine (Lantus) 100 UNIT/ML injection Inject 47 Units under the skin 2 times daily. insulin regular (HumuLIN R) 500 UNIT/ML CONCENTRATED injection Inject 140 Units under the skin 3 times daily. lactulose (Kristalose) 20 g packet Take 20 g by mouth 2 times daily. magnesium hydroxide (Milk of Magnesia) 400 MG/5ML suspension Take 30 mL by mouth Nightly. melatonin 10 MG tablet Take 10 mg by mouth Nightly as needed (insomnia). metoclopramide (Reglan) 10 MG tablet Take 1 tablet (10 mg) by mouth 4 times daily (before meals and nightly). miconazole (Micotin) 2 % powder Apply topically if needed for itching. Multiple Vitamin (multivitamin) capsule Take 1 capsule by mouth daily. pantoprazole (ProtoNix) 40 MG EC tablet Take 40 mg by mouth. polyethylene glycol, PEG, 3350 (Glycolax) 17 GM/SCOOP powder Take 17 g by mouth daily. senna-docusate sodium (Senokot-S) 8.6-50 MG tablet Take 1 tablet by mouth daily. torsemide (Demadex) 10 MG tablet Take 1 tablet (10 mg) by mouth daily. triamcinolone (Kenalog) 0.1 % cream Apply topically daily. lisinopril 40 MG tablet Take 0.5 tablets (20 mg) by mouth daily. (Patient not taking: Reported on 12/21/2024) No facility-administered medications prior to visit. Patient Active Problem List Diagnosis Date Noted Date Diagnosed Acute cholecystitis 10/18/2024 Priority: Medium NOY (acute kidney injury) ([facility]) 12/31/2023 Priority: Medium Acinetobacter lwoffi infection 10/09/2023 Priority: Medium Bacteremia due to Gram-negative bacteria 10/09/2023 Priority: Medium Hypoglycemia due to insulin 10/07/2023 Priority: Medium Hypothermia, not associated with low environmental temperature 10/07/2023 Priority: Medium Sepsis without acute organ dysfunction ([facility]) 10/07/2023 Priority: Medium Abdominal pain 08/19/2023 Priority: Medium Upper abdominal pain 08/17/2023 Priority: Medium Chest pain 06/28/2023 Priority: Medium Chest pain, unspecified type 06/28/2023 Priority: Medium Hypertension 11/25/2020 Priority: Medium Hyperlipidemia 10/07/2021 Thickened endometrium 11/26/2020 Complex endometrial hyperplasia with atypia 11/26/2020 Diabetic gastroparesis associated with type 2 diabetes mellitus ([facility]) ([facility]) 11/26/2020 Endometrial carcinoma ([facility]) 11/25/2020 Endometrial hyperplasia 11/25/2020 Diabetic hyperosmolar non-ketotic state ([facility]) ([facility]) 11/25/2020 Chronic acquired lymphedema 11/25/2020 Chronic osteomyelitis ([facility]) ([facility]) 11/25/2020 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 ([facility]) 11/25/2020 Type 2 diabetes mellitus with hyperglycemia, with long-term current use of insulin ([facility]) 11/25/2020 Hyperglycemia 11/25/2020 S/P AKA (above knee amputation) unilateral, right ([facility]) 11/25/2020 Ileus ([facility]) ([facility]) 09/27/2020 Esophagitis 09/22/2020 Nausea and vomiting 09/22/2020 Diabetic foot infection ([facility]) 06/14/2019 Post-menopausal bleeding 05/16/2019 Cellulitis 01/17/2019 Class 3 severe obesity due to excess calories with serious comorbidity and body mass index (BMI) of 60.0 to 69.9 in adult ([facility]) 01/13/2019 Left leg cellulitis 01/11/2019 Cellulitis and abscess of lower extremity 09/03/2018 Hyperandrogenism 09/03/2018 Social History Tobacco Use Smoking status: Never Smokeless tobacco: Never Substance Use Topics Alcohol use: No Family History Problem Relation Name Age of Onset No Known Problems Mother No Known Problems Father Objective BP 137/69 Pulse 78 Ht 5' 6" (1.676 m) Wt (!) 320 lb (145 kg) BMI 51.65 kg/m Physical Exam Constitutional: Appearance: Normal appearance. He is obese. Comments: Pleasant HENT: Head: Normocephalic. Mouth/Throat: Comments: Poor dentition Eyes: General: No scleral icterus. Cardiovascular: Rate and Rhythm: Normal rate and regular rhythm. Pulmonary: Effort: Pulmonary effort is normal. Breath sounds: Normal breath sounds. Abdominal: General: Bowel sounds are normal. There is no distension. Palpations: Abdomen is soft. There is no mass. Tenderness: There is no abdominal tenderness (patient denies ttp). There is no guarding or rebound. Hernia: No hernia is present. Musculoskeletal: Comments: Presented in wheelchair Right AKA Skin: General: Skin is warm and dry. Coloration: Skin is not jaundiced. Neurological: General: No focal deficit present. Mental Status: He is alert and oriented to person, place, and time. Psychiatric: Mood and Affect: Mood normal. Behavior: Behavior normal. Data Reviewed and Summarized Labs: Lab Results Component Value Date WBC 8.8 11/30/2024 HGB 12.0 11/30/2024 HCT 37.5 11/30/2024 MCV 83.9 11/30/2024 PLT 384 11/30/2024 Lab Results Component Value Date GLUCOSE 215 (H) 12/01/2024 CALCIUM 9.0 12/01/2024 NA 137 12/01/2024 K 3.4 (L) 12/01/2024 CO2 25 12/01/2024 CL 102 12/01/2024 BUN 10 12/01/2024 CREATININE 0.67 12/01/2024 Lab Results Component Value Date ALT 21 11/30/2024 AST 21 11/30/2024 ALKPHOS 145 11/30/2024 BILITOT 0.5 11/30/2024 Lab Results Component Value Date LIPASE 7 11/30/2024 Lab Results Component Value Date HGBA1C 6.9 (H) 10/19/2024 Component Latest Ref Rng 10/20/2024 IRON, TOTAL ug/dL 48 IRON BINDING CAPACITY 250 - 450 ug/dL 187 (L) IRON SATURATION 20.0 - 50.0 % 25.7 Legend: (L) Low Imaging/Testin11/30/2024 US Abdomen FINDINGS: Limitations: Overlying bowel gas and body habitus Liver: Normal in size. Hepatic parenchyma demonstrates increased echogenicity. No discrete lesion on submitted images. Biliary system: No sonographic evidence of intrahepatic biliary ductal dilatation. The common bile duct is normal in caliber measuring 4 mm. Gallbladder: Gallbladder appears mildly dilated. Cholelithiasis and sludge. Questionable polyp measuring 0.7 x 0.5 cm. No pericholecystic fluid or gallbladder wall thickening. There was a negative sonographic Caldwell's sign reported by the office technologist. Pancreas: Largely obscured by bowel gas. Right Kidney: The right kidney measures 10.9 cm in length. Limited survey of the right kidney demonstrates no obstructive uropathy. Cortical thickness and echotexture are likely within normal limits. Additional findings: None. IMPRESSION: 1. Technically limited evaluation. 2. Mild gallbladder dilatation with cholelithiasis and sludge. No ancillary findings to suggest acute cholecystitis. 3. Questionable 0.7 x 0.5 cm polyp versus artifact. Consider follow-up ultrasound in 6-12 months. 4. Hepatic steatosis. Report Dictated on Electronically Signed By: Roney Samaniego MD Electronically Signed Date/Time: 11/30/2024 5:12 PM EST Exam Date/Time 09/30/2020 14:12:07 EST Exam NM Gastric Emptying Study Ordering Physician MD MUNIZ REYNALDO C. Accession Number [id number] CPT4 Codes 43806 () Reason For Exam nausea, diabetees Report Indication: Nausea. History of diabetes. Following the oral administration of 1 mCi of tech 99m sulfur colloid, a gastric emptying scan was performed. There is no significant emptying of radiotracer from the stomach by two hours. Essentially 100 percent of the original activity remains within the stomach at 2 hrs (normal is 19 to 52 percent). Impression: 1. Findings consistent with marked delayed gastric emptying. Essentially 100 percent of the original activity remains within the stomach at 2 hours. Report Dictated on DOLORES Kinsey 4:03 PM 12/21/24 documented in this encounter [facility] 12-21-2024 Instructions JEREMY Kinsey CNP - 12/21/2024 8:30 AM EST --Please call office with any questions or concerns! [phone] --Schedule EGD (upper endoscopy) and colonoscopy for further evaluation of the symptoms. --A prescription for GoLytely was sent to your pharmacy. This is the bowel prep for your colonoscopy. --Avoid nonsteroidal anti-inflammatory (NSAID) medications such as ibuprofen (Advil), naproxen (Aleve), etc. These can contribute to abdominal pain and ulcers. Take Tylenol (acetaminophen) instead if needed for pain by following the instructions on the bottle. --Please see handout provided regarding additional recommendations for the symptoms including when to seek emergency care or further treatment. --Follow-up with PCP, and in GI clinic 2 weeks after procedures to review results. The following attachments cannot be sent through Care Everywhere.Upper GI Endoscopy (Swiss)Colonoscopy (Swiss)documented in this encounter [facility] 12-21-2024 Telephone encounter Note I have reviewed the pt's glucose log. Based on interpretation of the FSBS data I recommend the following changes to the pt's antihyperglycemic regimen: No changes to current regimen. Blood sugars are variable ranging from 80-334. Increasing doses would put patient at risk for hypoglycemia. Dietary changes for limiting carb intake to 60 grams of carbs per meal and snacks of 15 grams of carbs will assist with stabilizing blood sugars. Thanks! [facility] 12-20-2024 Telephone encounter Note Images from the original note were not included. Patients BGL [facility] 12-07-2024 History of Presen t illness Narrative Images from the original note were not included. Lilo Rizo MD General Surgery Outpatient Post-Operative/Follow Up Office Note Patient ID: Will Jacinto [id number] 59 y.o. 1965 Interval History 12/07/24: Patient is a 59 y/o morbidly obese F who is following up in office regarding cholecysitits. Patient was last seen in office on 11/14/24 after incidentally pulling out the cholecystostomy drain. Reports has had intermittent centralized abdominal pain since. Patient was noted to in ED 11/30 to 12/01 with complaints of chest pressure and vomiting. Patient reports he is currently nauseated with without much of an appetite. Patient reports pain centralized in abdomen. States that he has been eating well though. His blood sugars continue to be above 300 per report. Most recent US reviewed from hospitalization on 11/30 with noted mild GB dilatation with cholelithiasis and sludge but without acute cholecystitis. Possible polyp vs artifact at GB measuring 0.7 cm x 0.5 cm. HPI 11/14/24: This is a 59 y/o morbidly obese F who follows up from recent hospitalization for cholecystitis. Patient last seen on 11/10/24. Patient currently at SNF. Patient during hospitalization had CT and RUQ US and clinical exam consistent with acute cholecysitits. Given pateint uncontrolled blood sugars, new oxygen requirement was not candidate for surgery and placed on IV atbx and Percutaneous cholecystostomy drain was placed 10/19/24. He was discharged home to nursing facility. He reports since being there doing okay. Still states some pain and nausea RUQ of abdomen. He reports drain functioning with biliary drainage. He reports zofran helping with the nausea. Denies fever/chills. Patient follow up in office due to incidental removal of percutaneous cholecystostomy drain. Patient went to ED. CT abd/pelvis with decompressed GB with apparent cholelithiasis and no acute findings. Mildly elevated AST at 42. He reports since drain came out feels okay. Denies abdominal pain. No N/V. Reports eating well. 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; no specimens WISDOM TOOTH EXTRACTION Medications Prior to Visit: Prior to Admission medications Medication Sig Start Date End Date Taking? Authorizing Provider amLODIPine (Norvasc) 10 MG tablet Take 1 tablet (10 mg) by mouth daily. 01/12/24 Yes Mateo Espitia MD ARIPiprazole (Abilify) 10 MG tablet Every 24 hours. Yes Historical Provider, aspirin 81 MG EC tablet Take 1 tablet by mouth daily. 10/08/21 Yes Historical Provider, atorvastatin (Lipitor) 10 MG tablet Take 1 tablet by mouth daily. 11/26/20 Yes Historical Provider, bisacodyl (Dulcolax) 5 MG EC tablet Take 5 mg by mouth 2 times daily as needed for constipation. Do not crush, chew, or split. Yes Historical Provider, carvedilol (Coreg) 25 MG tablet Take 1 tablet (25 mg) by mouth in the morning and 1 tablet (25 mg) in the evening. Take with meals. 01/11/24 Yes Mateo Espitia MD ferrous sulfate 325 (65 Fe) MG tablet Take 1 tablet (325 mg) by mouth daily (with breakfast). 01/11/24 Yes Mateo Espitia MD FLUoxetine (PROzac) 40 MG capsule Take 40 mg by mouth daily. Yes Historical Provider, gabapentin (Neurontin) 100 MG capsule Take 100 mg by mouth in the morning and 100 mg before bedtime. Yes Historical Provider, hydrALAZINE (Apresoline) 25 MG tablet Take 25 mg by mouth 3 times daily. Yes Historical Provider, insulin glargine (Lantus) 100 UNIT/ML injection Inject 47 Units under the skin 2 times daily. Yes Historical Provider, insulin regular (HumuLIN R) 500 UNIT/ML CONCENTRATED injection Inject 140 Units under the skin 3 times daily. 11/28/24 Yes JEREMY Vincent CNP lisinopril 40 MG tablet Take 0.5 tablets (20 mg) by mouth daily. 10/16/23 Yes Marcio Armando MD magnesium hydroxide (Milk of Magnesia) 400 MG/5ML suspension Take 30 mL by mouth Nightly. Yes Historical Provider, melatonin 10 MG tablet Take 10 mg by mouth Nightly as needed (insomnia). Yes Historical Provider, metoclopramide (Reglan) 10 MG tablet Take 1 tablet (10 mg) by mouth 4 times daily (before meals and nightly). 01/11/24 Yes Mateo Espitia MD Multiple Vitamin (multivitamin) capsule Take 1 capsule by mouth daily. Yes Historical Provider, ondansetron ODT (Zofran-ODT) 4 MG disintegrating tablet Take 1 tablet (4 mg) by mouth every 8 hours as needed for nausea or vomiting for up to 7 days. 12/01/24 12/08/24 Yes JEREMY Lugo CNP pantoprazole (ProtoNix) 40 MG EC tablet Take 40 mg by mouth. 11/26/20 Yes Historical Provider, polyethylene glycol, PEG, 3350 (Glycolax) 17 GM/SCOOP powder Take 17 g by mouth daily. Yes Historical Provider, torsemide (Demadex) 10 MG tablet Take 1 tablet (10 mg) by mouth daily. 01/12/24 Yes Mateo Espitia MD Allergies: Patient has no known allergies. Social History Socioeconomic History Marital status: Single Tobacco Use Smoking status: Never Smokeless tobacco: Never Vaping Use Vaping status: Never Used Substance and Sexual Activity Alcohol use: No Drug use: Never 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 Health Food Insecurity: No Food Insecurity (10/19/2024) Hunger Vital Sign Worried About Running Out of Food in the Last Year: Never true Ran Out of Food in the Last Year: Never true Transportation Needs: No Transportation Needs (10/19/2024) PRAPARE - Transportation Lack of Transportation (Medical): No Lack of Transportation (Non-Medical): No Stress: No Stress Concern Present (10/19/2024) [employer] - Occupational Stress Questionnaire Feeling of Stress : Only a little Social Connections: Unknown (10/19/2024) Social Connection and Isolation Panel [NHANES] Frequency of Communication with Friends and Family: Three times a week Frequency of Social Gatherings with Friends and Family: Once a week Attends [employer] Services: 1 to 4 times per year Active Member of Clubs or Organizations: No Attends Club or Organization Meetings: Never Marital Status: Patient declined Intimate Partner Violence: Not At Risk (10/19/2024) Humiliation, Afraid, Rape, and Kick questionnaire Fear of Current or Ex-Partner: No Emotionally Abused: No Physically Abused: No Sexually Abused: No Housing Stability: Low Risk (10/19/2024) Housing Stability Vital Sign Unable to Pay for Housing in the Last Year: No Number of Times Moved in the Last Year: 0 Homeless in the Last Year: No Family History Problem Relation Name Age of Onset No Known Problems Mother No Known Problems Father REVIEW OF SYSTEMS: Otherwise negative unless noted above. PHYSICAL EXAM: BP 139/80 Pulse 82 Temp 36.4 C (97.6 F) Physical Exam Constitutional: Appearance: Normal appearance. HENT: Head: Normocephalic. Eyes: Pupils: Pupils are equal, round, and reactive to light. Cardiovascular: Rate and Rhythm: Normal rate and regular rhythm. Pulses: Normal pulses. Pulmonary: Effort: Pulmonary effort is normal. No respiratory distress. Breath sounds: Normal breath sounds. No rales. Abdominal: General: Bowel sounds are normal. Palpations: Abdomen is soft. There is no mass. Tenderness: There is abdominal tenderness (mild) in the epigastric area. Musculoskeletal: General: No swelling or tenderness. Cervical back: Normal range of motion. No tenderness. Lymphadenopathy: Cervical: No cervical adenopathy. Skin: General: Skin is warm and dry. Neurological: Mental Status: He is alert and oriented to person, place, and time. Psychiatric: Behavior: Behavior normal. Orders Placed This Encounter Procedures [facility] Wt Mgmt Program ASSESSMENT AND PLAN: This is a 59 y.o. adult who is following up on cholecystitis preveiously treated with percutaneous cholecystostomy that has since been inadvertently removed - Continued epigastric abdominal discomfort - US 11/30 reviewed with cholelithiasis and sludge without acute cholecystitis - Surgery has not previously been pursued due to his uncontrolled diabetes. His sugars continue to be greater than 300 per report. He also suffers from morbid obesity with BMI 51.65. Would recommend medical optimization and bariatric referral prior to operative intervention. Given the above, should he suffer cholecystitis again, would again recommend percutaneous cholecystostomy tube unless otherwise optimized. Lilo Rizo MD 12/07/2024 4:32 PM RB I spent 30 minutes total on the day of the visit obtaining history, reviewing imaging and laboratory results, performing a physical exam and providing patient education and counseling. documented in this encounter [facility] 12-06-2024 Telephone encounter Note [facility]VM with prison(primary number in account) for mail courier to call back to schedule follow up appointment with Herber. [facility] 12-06-2024 Miscellaneous Notes LVM with prison(primary number in account) for mail courier to call back to schedule follow up appointment with Herber. Addendum completed. Sending message to provider as FYI, please indicate if/when patient needs fu with provider to review. Will forward to staff to schedule if indicated. Thank you. Noted. Request emailed to radiology team. Patient appeared on ED N[facility] after CT abdomen pelvis 11-12-2024. Visualized lung bases again show nodular density right middle lobe measuring approximately 9 mm (8 mm previously). Mild bibasilar atelectasis. Also had CTA chest 10/18/24. Pt under care of Herber Ramos CNP who had last seen patient in February 2024 noting patient needed additional CT chest in 1 year to document stability and complete follow-up. Patient is tentatively scheduled for CT chest imaging for. Please review most recent imaging and advise if patient should keep imaging appointment and/or have scheduled follow-up sooner with provider. documented in this encounter [facility] 12-01-2024 Note [facility] 12-01-2024 Telephone encounter Note Images from the original note were not included. Faxed new insulin order to [facility] at fax #: [phone]. [facility] 12-01-2024 Miscellaneous Notes Images from the original note were not included. Faxed new insulin order to [facility] at fax #: [phone]. I have reviewed the pt's glucose log. Based on interpretation of the FSBS data I recommend the following changes to the pt's antihyperglycemic regimen: Please increase Humulin u500 to 140 units three times daily before meals. Med rec updated: Yes Images from the original note were not included. Patients BGL I have reviewed the pt's glucose log. Based on interpretation of the FSBS data I recommend the following changes to the pt's antihyperglycemic regimen: Blood sugars are variable within the past 4 weeks. Blood sugars have increased since 11/17/2024. Previously, insulin was being held for blood sugars below 100. There is too much inconsistency to make a clinical decision without concern for hypoglycemia. No changes at this time until we ensure blood sugars remain stable. Images from the original note were not included. Patient's BGL documented in this encounter [facility] 12-01-2024 Note IMPRESSION: Sinus rhythm Abnormal R-wave progression, late transition Left ventricular hypertrophy Borderline prolonged QT interval Electronically Signed On 12-01-2024 00:32:34 EST by Aaron Burgos [facility] 11-30-2024 Note [facility] 11-28-2024 Telephone encounter Note I have reviewed the pt's glucose log. Based on interpretation of the FSBS data I recommend the following changes to the pt's antihyperglycemic regimen: Please increase Humulin u500 to 140 units three times daily before meals. Med rec updated: Yes [facility] 11-28-2024 Miscellaneous Notes I have reviewed the pt's glucose log. Based on interpretation of the FSBS data I recommend the following changes to the pt's antihyperglycemic regimen: Please increase Humulin u500 to 140 units three times daily before meals. Med rec updated: Yes Images from the original note were not included. Patients BGL I have reviewed the pt's glucose log. Based on interpretation of the FSBS data I recommend the following changes to the pt's antihyperglycemic regimen: Blood sugars are variable within the past 4 weeks. Blood sugars have increased since 11/17/2024. Previously, insulin was being held for blood sugars below 100. There is too much inconsistency to make a clinical decision without concern for hypoglycemia. No changes at this time until we ensure blood sugars remain stable. Images from the original note were not included. Patient's BGL documented in this encounter [facility] 11-28-2024 Telephone encounter Note Images from the original note were not included. Patients BGL [facility] 11-22-2024 Telephone encounter Note I have reviewed the pt's glucose log. Based on interpretation of the FSBS data I recommend the following changes to the pt's antihyperglycemic regimen: Blood sugars are variable within the past 4 weeks. Blood sugars have increased since 11/17/2024. Previously, insulin was being held for blood sugars below 100. There is too much inconsistency to make a clinical decision without concern for hypoglycemia. No changes at this time until we ensure blood sugars remain stable. [facility] 11-22-2024 Telephone encounter Note Unable to reach [facility] at to reschedule appt with Makayla Guerrero on 11/27/2024. Called again at [phone] and spoke to Quiana again. Rescheduled pt to 01/01/25 and per Quiana [facility] will call if there is a problem with this date/time. [facility] 11-22-2024 Miscellaneous Notes Unable to reach [facility] at to reschedule appt with Makayla Guerrero on 11/27/2024. Called again at [phone] and spoke to Quiana again. Rescheduled pt to 01/01/25 and per Nayan Arayah will call if there is a problem with this date/time. documented in this encounter [facility] 11-21-2024 Telephone encounter Note [facility] the [facility] and spoke with the pts nurse nabil, I let her know that I needed to clarify if he was sick or was not eating when his insulin doses were held. She stated that he has gallbladder issues, when he is having these issues he does not want to eat (communicated with ana maria). I let the nurse know to send us new logs in two weeks, she understood. [facility] 11-21-2024 Miscellaneous Notes Called the prison and spoke with the pts nurse nabil, I let her know that I needed to clarify if he was sick or was not eating when his insulin doses were held. She stated that he has gallbladder issues, when he is having these issues he does not want to eat (communicated with ana maria). I let the nurse know to send us new logs in two weeks, she understood. I have reviewed the pt's glucose log. Based on interpretation of the FSBS data I recommend the following changes to the pt's antihyperglycemic regimen: Blood sugars are variable with 5 doses recently held. Can we clarify if patient has been sick or had decreased appetite that caused recent change in insulin needs? Images from the original note were not included. Patient's BGL documented in this encounter [facility] 11-21-2024 Telephone encounter Note Images from the original note were not included. Patient's BGL [facility] 11-20-2024 Telephone encounter Note Addendum completed. Sending message to provider as FYI, please indicate if/when patient needs fu with provider to review. Will forward to staff to schedule if indicated. Thank you. [facility] 11-20-2024 Miscellaneous Notes Addendum completed. Sending message to provider as FYI, please indicate if/when patient needs fu with provider to review. Will forward to staff to schedule if indicated. Thank you. Noted. Request emailed to radiology team. Patient appeared on ED N[facility] after CT abdomen pelvis 11-12-2024. Visualized lung bases again show nodular density right middle lobe measuring approximately 9 mm (8 mm previously). Mild bibasilar atelectasis. Also had CTA chest 10/18/24. Pt under care of Herber Ramos CNP who had last seen patient in February 2024 noting patient needed additional CT chest in 1 year to document stability and complete follow-up. Patient is tentatively scheduled for CT chest imaging for. Please review most recent imaging and advise if patient should keep imaging appointment and/or have scheduled follow-up sooner with provider. documented in this encounter [facility] 11-19-2024 Telephone encounter Note I have reviewed the pt's glucose log. Based on interpretation of the FSBS data I recommend the following changes to the pt's antihyperglycemic regimen: Blood sugars are variable with 5 doses recently held. Can we clarify if patient has been sick or had decreased appetite that caused recent change in insulin needs? [facility] Work Phone: 11-19-2024 Miscellaneous Notes I have reviewed the pt's glucose log. Based on interpretation of the FSBS data I recommend the following changes to the pt's antihyperglycemic regimen: Blood sugars are variable with 5 doses recently held. Can we clarify if patient has been sick or had decreased appetite that caused recent change in insulin needs? Images from the original note were not included. Patient's BGL documented in this encounter [facility] 11-15-2024 Telephone encounter Note Images from the original note were not included. Patient's BGL [facility] 11-14-2024 Telephone encounter Note Noted. Request emailed to radiology team. [facility] 11-14-2024 Miscellaneous Notes Noted. Request emailed to radiology team. Patient appeared on ED N[facility] after CT abdomen pelvis 11-12-2024. Visualized lung bases again show nodular density right middle lobe measuring approximately 9 mm (8 mm previously). Mild bibasilar atelectasis. Also had CTA chest 10/18/24. Pt under care of Herber Ramos CNP who had last seen patient in February 2024 noting patient needed additional CT chest in 1 year to document stability and complete follow-up. Patient is tentatively scheduled for CT chest imaging for. Please review most recent imaging and advise if patient should keep imaging appointment and/or have scheduled follow-up sooner with provider. documented in this encounter [facility] 11-14-2024 History of Presen t illness Narrative Images from the original note were not included. Asuncion Valencia PERSONAL CARE SERVICE PROVIDER-SHEARING SHED WORKER General Surgery Outpatient Post-Operative/Follow Up Office Note Patient ID: Will Jacinto [id number] 59 y.o. 1965 This is a 59 y/o morbidly obese F who follows up from recent hospitalization for cholecystitis. Patient last seen on 11/10/24. Patient currently at SNF. Patient during hospitalization had CT and RUQ US and clinical exam consistent with acute cholecysitits. Given pateint uncontrolled blood sugars, new oxygen requirement was not candidate for surgery and placed on IV atbx and Percutaneous cholecystostomy drain was placed 10/19/24. He was discharged home to nursing facility. He reports since being there doing okay. Still states some pain and nausea RUQ of abdomen. He reports drain functioning with biliary drainage. He reports zofran helping with the nausea. Denies fever/chills. Patient follow up in office due to incidental removal of percutaneous cholecystostomy drain. Patient went to ED. CT abd/pelvis with decompressed GB with apparent cholelithiasis and no acute findings. Mildly elevated AST at 42. He reports since drain came out feels okay. Denies abdominal pain. No N/V. Reports eating well. 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; no specimens WISDOM TOOTH EXTRACTION Medications Prior to Visit: Prior to Admission medications Medication Sig Start Date End Date Taking? Authorizing Provider amLODIPine (Norvasc) 10 MG tablet Take 1 tablet (10 mg) by mouth daily. 01/12/24 Mateo Espitia MD ARIPiprazole (Abilify) 10 MG tablet Every 24 hours. Historical Provider, aspirin 81 MG EC tablet Take 1 tablet by mouth daily. 10/08/21 Historical Provider, atorvastatin (Lipitor) 10 MG tablet Take 1 tablet by mouth daily. 11/26/20 Historical Provider, bisacodyl (Dulcolax) 5 MG EC tablet Take 5 mg by mouth 2 times daily as needed for constipation. Do not crush, chew, or split. Historical Provider, carvedilol (Coreg) 25 MG tablet Take 1 tablet (25 mg) by mouth in the morning and 1 tablet (25 mg) in the evening. Take with meals. 01/11/24 Mateo Espitia MD ferrous sulfate 325 (65 Fe) MG tablet Take 1 tablet (325 mg) by mouth daily (with breakfast). 01/11/24 Mateo Espitia MD FLUoxetine (PROzac) 40 MG capsule Take 40 mg by mouth daily. Historical Provider, gabapentin (Neurontin) 100 MG capsule Take 100 mg by mouth in the morning and 100 mg before bedtime. Historical Provider, hydrALAZINE (Apresoline) 25 MG tablet Take 25 mg by mouth 3 times daily. Historical Provider, insulin glargine (Lantus) 100 UNIT/ML injection Inject 47 Units under the skin 2 times daily. Historical Provider, insulin regular (HumuLIN R) 500 UNIT/ML CONCENTRATED injection Inject 130 Units under the skin 3 times daily. Historical Provider, lisinopril 40 MG tablet Take 0.5 tablets (20 mg) by mouth daily. Patient not taking: Reported on 02/11/2024 10/16/23 Marcio Armando MD magnesium hydroxide (Milk of Magnesia) 400 MG/5ML suspension Take 30 mL by mouth Nightly. Historical Provider, melatonin 10 MG tablet Take 10 mg by mouth Nightly as needed (insomnia). Historical Provider, metoclopramide (Reglan) 10 MG tablet Take 1 tablet (10 mg) by mouth 4 times daily (before meals and nightly). 01/11/24 Mateo Espitia MD Multiple Vitamin (multivitamin) capsule Take 1 capsule by mouth daily. Historical Provider, pantoprazole (ProtoNix) 40 MG EC tablet Take 40 mg by mouth. 11/26/20 Historical Provider, polyethylene glycol, PEG, 3350 (Glycolax) 17 GM/SCOOP powder Take 17 g by mouth daily. Historical Provider, torsemide (Demadex) 10 MG tablet Take 1 tablet (10 mg) by mouth daily. 01/12/24 Mateo Espitia MD Allergies: Patient has no known allergies. Social History Socioeconomic History Marital status: Single Tobacco Use Smoking status: Never Smokeless tobacco: Never Vaping Use Vaping status: Never Used Substance and Sexual Activity Alcohol use: No Drug use: Never 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 Health Food Insecurity: No Food Insecurity (10/19/2024) Hunger Vital Sign Worried About Running Out of Food in the Last Year: Never true Ran Out of Food in the Last Year: Never true Transportation Needs: No Transportation Needs (10/19/2024) PRAPARE - Transportation Lack of Transportation (Medical): No Lack of Transportation (Non-Medical): No Stress: No Stress Concern Present (10/19/2024) [employer] - Occupational Stress Questionnaire Feeling of Stress : Only a little Social Connections: Unknown (10/19/2024) Social Connection and Isolation Panel [NHANES] Frequency of Communication with Friends and Family: Three times a week Frequency of Social Gatherings with Friends and Family: Once a week Attends Mormonism Services: 1 to 4 times per year Active Member of Clubs or Organizations: No Attends Club or Organization Meetings: Never Marital Status: Patient declined Intimate Partner Violence: Not At Risk (10/19/2024) Humiliation, Afraid, Rape, and Kick questionnaire Fear of Current or Ex-Partner: No Emotionally Abused: No Physically Abused: No Sexually Abused: No Housing Stability: Low Risk (10/19/2024) Housing Stability Vital Sign Unable to Pay for Housing in the Last Year: No Number of Times Moved in the Last Year: 0 Homeless in the Last Year: No Family History Problem Relation Name Age of Onset No Known Problems Mother No Known Problems Father REVIEW OF SYSTEMS: Otherwise negative unless noted above. PHYSICAL EXAM: BP (!) 140/79 Pulse 83 Temp 36.2 C (97.2 F) Ht 5' 6" (1.676 m) BMI 51.65 kg/m Physical Exam Constitutional: Appearance: Normal appearance. HENT: Head: Normocephalic. Eyes: Pupils: Pupils are equal, round, and reactive to light. Cardiovascular: Rate and Rhythm: Normal rate and regular rhythm. Pulses: Normal pulses. Pulmonary: Effort: Pulmonary effort is normal. No respiratory distress. Breath sounds: Normal breath sounds. No rales. Abdominal: General: Bowel sounds are normal. Palpations: Abdomen is soft. There is no mass. Tenderness: There is no abdominal tenderness. Comments: RUQ with interval removal of Perc ton drain but noted residual suture which was removed without east Musculoskeletal: General: No swelling or tenderness. Cervical back: Normal range of motion. No tenderness. Lymphadenopathy: Cervical: No cervical adenopathy. Skin: General: Skin is warm and dry. Neurological: Mental Status: He is alert and oriented to person, place, and time. Psychiatric: Behavior: Behavior normal. No orders of the defined types were placed in this encounter. ASSESSMENT AND PLAN: This is a 59 y.o. adult who is following up for recent cholecystitis s/p perc ton drain placement 10/19/24 - Perc ton drain Incidentally removed by patient - Cancel cholangiogram - Instructed importance of low fat diet - Will have patient follow up Dr. Rizo in 3-4 weeks for reevaluation and discussion of possible cholecystectomy JEREMY Nina CNP 11/14/2024 12:47 PM documented in this encounter [facility] 11-13-2024 Telephone encounter Note Patient appeared on ED Nuance after CT abdomen pelvis 11-12-2024. Visualized lung bases again show nodular density right middle lobe measuring approximately 9 mm (8 mm previously). Mild bibasilar atelectasis. Also had CTA chest 10/18/24. Pt under care of Herber Ramos CNP who had last seen patient in February 2024 noting patient needed additional CT chest in 1 year to document stability and complete follow-up. Patient is tentatively scheduled for CT chest imaging for. Please review most recent imaging and advise if patient should keep imaging appointment and/or have scheduled follow-up sooner with provider. [facility] 11-12-2024 Hospital Discharg e instructions JEREMY Hilliard CNP - 11/12/2024 11:44 PM EST The drain coming out after 3+ weeks is okay at this time CT and labs are unremarkable patient can follow-up in the surgery office as an outpatient. The following attachments cannot be sent through Care Everywhere.Gallstones Discharge Instructions (Swiss)documented in this encounter [facility] 11-12-2024 Emergency department Note Emergency Department Encounter [facility] ED Patient: Will Jacinto : 1965 Date of Evaluation: 11/12/2024 ED Supervising Physician: Virgil Mederos MD I personally evaluated Will Jacinto and made/approved the management plan and take responsibility for the patient management. This will serve as my Supervisory note and shared attestation. I did perform a substantive portion of the visit including all aspects of the Medical Decision Making. I wore appropriate PPE for the entirety of this encounter. In brief, Maria Luisa Jacinto is a 59 y.o. that presents to the emergency department with his drain getting pulled out he had a PERC Sowmya drain secondary to cholecystitis Focused exam: Patient's awake alert well-appearing relatively benign abdominal exam Brief ED course/MDM: Patient presenting after PERC Sowmya drain got pulled out earlier this evening he was placed few weeks ago for cholecystitis he was a poor surgical candidate plan to check labs and a CT and then discussed with surgery determine if needs admission for replacement versus close outpatient follow-up. Diagnostics interpreted by me: I personally discussed the patient's management with other clinicians: All diagnostic, treatment, and disposition decisions were made by myself in conjunction with the [facility]. For all further details of the patient's emergency department visit, please see their documentation. (Comment: Please note this report has been produced using speech recognition software and may contain errors related to that system including errors in grammar, punctuation, and spelling, as well as words and phrases that may be inappropriate. If there are any questions or concerns please feel free to contact the dictating provider for clarification.) Virgil Mederos MD [facility] Virgil Mederos MD 11/12/242219 documented in this encounter [facility] 11-12-2024 Physician Emergency department Note Emergency Department Encounter [facility] ED Patient: Will Jacinto : 1965 Date of Evaluation: 11/12/2024 ED Supervising Physician: Virgil Mederos MD I personally evaluated Will Jacinto and made/approved the management plan and take responsibility for the patient management. This will serve as my Supervisory note and shared attestation. I did perform a substantive portion of the visit including all aspects of the Medical Decision Making. I wore appropriate PPE for the entirety of this encounter. In brief, Maria Luisa Jacinto is a 59 y.o. that presents to the emergency department with his drain getting pulled out he had a PERC Sowmya drain secondary to cholecystitis Focused exam: Patient's awake alert well-appearing relatively benign abdominal exam Brief ED course/MDM: Patient presenting after PERC Sowmya drain got pulled out earlier this evening he was placed few weeks ago for cholecystitis he was a poor surgical candidate plan to check labs and a CT and then discussed with surgery determine if needs admission for replacement versus close outpatient follow-up. Diagnostics interpreted by me: I personally discussed the patient's management with other clinicians: All diagnostic, treatment, and disposition decisions were made by myself in conjunction with the [facility]. For all further details of the patient's emergency department visit, please see their documentation. (Comment: Please note this report has been produced using speech recognition software and may contain errors related to that system including errors in grammar, punctuation, and spelling, as well as words and phrases that may be inappropriate. If there are any questions or concerns please feel free to contact the dictating provider for clarification.) Virgil Mederos MD [employer] [facility] Virgil Mederos MD 11/12/242219 [employer] [facility] [employer] Phone: 11-10-2024 History of Presen t illness Narrative Images from the original note were not included. Asuncion Valencia APRN-[facility] General Surgery Outpatient Post-Operative/Follow Up Office Note Patient ID: Will Jacinto [id number] 59 y.o. 1965 This is a 59 y/o morbidly obese F who follows up from recent hospitalization for cholecystitis. Patient during hospitalization had CT and RUQ US and clinical exam consistent with acute cholecysitits. Given pateint uncontrolled blood sugars, new oxygen requirement was not candidate for surgery and placed on IV atbx and Percutaneous cholecystostomy drain was placed 10/19/24. He was discharged home to nursing facility. He reports since being there doing okay. Still states some pain and nausea RUQ of abdomen. He reports drain functioning with biliary drainage. He reports zofran helping with the nausea. Denies fever/chills. 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; no specimens WISDOM TOOTH EXTRACTION Medications Prior to Visit: Prior to Admission medications Medication Sig Start Date End Date Taking? Authorizing Provider amLODIPine (Norvasc) 10 MG tablet Take 1 tablet (10 mg) by mouth daily. 01/12/24 Mateo Espitia MD ARIPiprazole (Abilify) 10 MG tablet Every 24 hours. Historical Provider, aspirin 81 MG EC tablet Take 1 tablet by mouth daily. 10/08/21 Historical Provider, atorvastatin (Lipitor) 10 MG tablet Take 1 tablet by mouth daily. 11/26/20 Historical Provider, bisacodyl (Dulcolax) 5 MG EC tablet Take 5 mg by mouth 2 times daily as needed for constipation. Do not crush, chew, or split. Historical Provider, carvedilol (Coreg) 25 MG tablet Take 1 tablet (25 mg) by mouth in the morning and 1 tablet (25 mg) in the evening. Take with meals. 01/11/24 Mateo Espitia MD ferrous sulfate 325 (65 Fe) MG tablet Take 1 tablet (325 mg) by mouth daily (with breakfast). 01/11/24 Mateo Espitia MD FLUoxetine (PROzac) 40 MG capsule Take 40 mg by mouth daily. Historical Provider, gabapentin (Neurontin) 100 MG capsule Take 100 mg by mouth in the morning and 100 mg before bedtime. Historical Provider, hydrALAZINE (Apresoline) 25 MG tablet Take 25 mg by mouth 3 times daily. Historical Provider, insulin glargine (Lantus) 100 UNIT/ML injection Inject 47 Units under the skin 2 times daily. Historical Provider, insulin regular (HumuLIN R) 500 UNIT/ML CONCENTRATED injection Inject 130 Units under the skin 3 times daily. Historical Provider, lisinopril 40 MG tablet Take 0.5 tablets (20 mg) by mouth daily. Patient not taking: Reported on 02/11/2024 10/16/23 Marcio Armando MD magnesium hydroxide (Milk of Magnesia) 400 MG/5ML suspension Take 30 mL by mouth Nightly. Historical Provider, melatonin 10 MG tablet Take 10 mg by mouth Nightly as needed (insomnia). Historical Provider, metoclopramide (Reglan) 10 MG tablet Take 1 tablet (10 mg) by mouth 4 times daily (before meals and nightly). 01/11/24 Mateo Espitia MD Multiple Vitamin (multivitamin) capsule Take 1 capsule by mouth daily. Historical Provider, pantoprazole (ProtoNix) 40 MG EC tablet Take 40 mg by mouth. 11/26/20 Historical Provider, polyethylene glycol, PEG, 3350 (Glycolax) 17 GM/SCOOP powder Take 17 g by mouth daily. Historical Provider, torsemide (Demadex) 10 MG tablet Take 1 tablet (10 mg) by mouth daily. 01/12/24 Mateo Espitia MD Allergies: Patient has no known allergies. Social History Socioeconomic History Marital status: Single Tobacco Use Smoking status: Never Smokeless tobacco: Never Vaping Use Vaping status: Never Used Substance and Sexual Activity Alcohol use: No Drug use: Never 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 Health Food Insecurity: No Food Insecurity (10/19/2024) Hunger Vital Sign Worried About Running Out of Food in the Last Year: Never true Ran Out of Food in the Last Year: Never true Transportation Needs: No Transportation Needs (10/19/2024) PRAPARE - Transportation Lack of Transportation (Medical): No Lack of Transportation (Non-Medical): No Stress: No Stress Concern Present (10/19/2024) [employer] - Occupational Stress Questionnaire Feeling of Stress : Only a little Social Connections: Unknown (10/19/2024) Social Connection and Isolation Panel [NHANES] Frequency of Communication with Friends and Family: Three times a week Frequency of Social Gatherings with Friends and Family: Once a week Attends [employer] Services: 1 to 4 times per year Active Member of Clubs or Organizations: No Attends Club or Organization Meetings: Never Marital Status: Patient declined Intimate Partner Violence: Not At Risk (10/19/2024) Humiliation, Afraid, Rape, and Kick questionnaire Fear of Current or Ex-Partner: No Emotionally Abused: No Physically Abused: No Sexually Abused: No Housing Stability: Low Risk (10/19/2024) Housing Stability Vital Sign Unable to Pay for Housing in the Last Year: No Number of Times Moved in the Last Year: 0 Homeless in the Last Year: No Family History Problem Relation Name Age of Onset No Known Problems Mother No Known Problems Father REVIEW OF SYSTEMS: Otherwise negative unless noted above. PHYSICAL EXAM: BP (!) 142/81 Pulse 83 Temp 36.3 C (97.3 F) Ht 5' 6" (1.676 m) BMI 51.65 kg/m Physical Exam Constitutional: Appearance: Normal appearance. HENT: Head: Normocephalic. Eyes: Pupils: Pupils are equal, round, and reactive to light. Cardiovascular: Rate and Rhythm: Normal rate and regular rhythm. Pulses: Normal pulses. Pulmonary: Effort: Pulmonary effort is normal. No respiratory distress. Breath sounds: Normal breath sounds. No rales. Abdominal: General: Bowel sounds are normal. Palpations: Abdomen is soft. There is no mass. Tenderness: There is no abdominal tenderness. Comments: RUQ perc ton drain with bilious output within the bag. No abdominal tenderness on exam. Musculoskeletal: General: No swelling or tenderness. Cervical back: Normal range of motion. No tenderness. Lymphadenopathy: Cervical: No cervical adenopathy. Skin: General: Skin is warm and dry. Neurological: Mental Status: He is alert and oriented to person, place, and time. Psychiatric: Behavior: Behavior normal. No orders of the defined types were placed in this encounter. ASSESSMENT AND PLAN: This is a 59 y.o. adult who is following up for recent cholecystitis s/p perc ton drain placement 10/19/24 - Perc ton drain in place with appropriate bile within the bag - Plan for cholangiogram at 4-6 weeks from date of placement - Follow up in office after completion of imaging and follow up JEREMY Chaves CNP 11/10/2024 11:32 AM documented in this encounter [facility] 10-30-2024 Telephone encounter Note Released message to nurse [facility] 10-30-2024 Miscellaneous Notes Released message to nurse BG log reviewed. No changes to current meds. Send log as needed; otherwise, has appt 11/27 with Ana Maria. Please remind SNF to send BGL and MAR to visit. Thank you! Images from the original note were not included. Patient's BGL documented in this encounter [facility] 10-30-2024 Telephone encounter Note BG log reviewed. No changes to current meds. Send log as needed; otherwise, has appt 11/27 with Ana Maria. Please remind SNF to send BGL and MAR to visit. Thank you! [facility] Work Phone: 10-30-2024 Telephone encounter Note Images from the original note were not included. Patient's BGL [facility] 10-24-2024 Telephone encounter Note Shayy called back we scheduled an appointment with Ana Maria on 11/27/24 and another one on 03/27/25 with Thalia. [facility] 10-24-2024 Miscellaneous Notes Shayy called back we scheduled an appointment with Ana Maria on 11/27/24 and another one on 03/27/25 with Thalia. Called [facility] at [phone] and spoke to Quiana who states that I need to to speak to Suri, and she is currently out of the office. Per Quiana, she will have [facility] call back to schedule. Direct phone number to the [place] office was given. Needs to be seen for follow up with any provider, will need [facility] to arrange transportation so that patient can be seen in office ans no longer available to manage over the phone documented in this encounter [facility] 10-24-2024 Hospital Discharg e instructions Baldev rOtiz MD - 10/24/2024 12:53 PM EST Please return to the Emergency Room if you have dizziness, shortness of breath, falls, new or worsening symptoms. documented in this encounter [facility] 10-24-2024 Emergency department Note Pt placed on bedpan, urine sample collected and sent to lab. [facility] 10-24-2024 Emergency department Note Pt placed on bedpan, urine sample collected and sent to lab. Pt provided with sandwich and pop, ok per Dr Mixon Per pt he is not having any blood in his urine, his gallbladder drain is newly placed (3 days ago), pt states the drainage has been the same in color since it was placed, denies pain, denies drainage to site. Pt states has no complaints other than concern for low BG and feeling cold. Pt arrives by [facility] for blood in urine and change in mental status. Pt has chronic lewis and has blood present. BP elevated, BG 154 (low per SNF because pt is normally in 300 range). Pt is DNR-CCA. documented in this encounter [facility] 10-24-2024 Emergency department Note Pt provided with sandwich and pop, ok per Dr Mixon [facility] 10-24-2024 Emergency department Note Per pt he is not having any blood in his urine, his gallbladder drain is newly placed (3 days ago), pt states the drainage has been the same in color since it was placed, denies pain, denies drainage to site. Pt states has no complaints other than concern for low BG and feeling cold. [facility] 10-24-2024 Emergency department Note Pt arrives by [facility] for blood in urine and change in mental status. Pt has chronic lewis and has blood present. BP elevated, BG 154 (low per SNF because pt is normally in 300 range). Pt is DNR-CCA. [facility] 10-24-2024 Telephone encounter Note Called [place] [facility] at [phone] and spoke to Quiana who states that I need to to speak to Suri, and she is currently out of the office. Per Quiana, she will have Suri call back to schedule. Direct phone number to the [place] office was given. [facility] 10-23-2024 Nurse Note Report called to Nabil GUILLORY at [facility]. [facility] 10-23-2024 Nurse Note Report called to Nabil GUILLORY at [facility]. Report called to [address] [place] [address] for transfer. Notified Lisa Lopes APRN and Dr. Thomas regarding patients BS. New orders placed. documented in this encounter [facility] 10-23-2024 Note Formatting of this n ote might be different from the original. Discharge med list transmitted to return back to [facility] via [facility] per [facility] request. [facility] 10-23-2024 Note Formatting of this n ote might be different from the original. Discharge med list transmitted to return back to [facility] via [facility] per TCC request. [facility] 10-23-2024 Miscellaneous Notes Discharge med list transmitted to return back to [facility] via [facility] per TCC request. Asked by [facility] to set transport to [facility]. The BLS Vehicle you requested for Will Batista in unit/room [facility] [id number] on 10/23/2024 is scheduled to arrive at 2:30pm EST! [facility] is handling this ride and you can contact them at . Pt, nurse, unit sec, TCC, and facility informed of time. DC orders in and signed by Dr. Thomas. LIGHT ARMORED VEHICLE OFFICER set up transport. [facility] info [facility] . DC back to [facility] in stable condition. . Problem: Knowledge Deficit Goal: Patient/family/caregiver demonstrates understanding of disease process, treatment plan, medications, and discharge instructions Outcome: Progressing Problem: Potential for Compromised Skin Integrity Goal: Skin Integrity is Maintained or Improved Outcome: Progressing Problem: Knowledge Deficit Goal: Patient/family/caregiver demonstrates understanding of disease process, treatment plan, medications, and discharge instructions Outcome: Progressing Problem: Potential for Compromised Skin Integrity Goal: Skin Integrity is Maintained or Improved Outcome: Progressing Did [facility] that attending would like patient to return to their facility tomorrow on po antibiotics. Will have TCC coverage for tomorrow follow for reply. Patient is senior living at the facility and does not need auth to return. Care Management Progress Note Pt remains on 2E. Endo, ID, gen surg, and gastro following. Biliary drain in place, culture in process. Receiving IV ATB. Fecal occult stool positive. Discharge plan is back to [facility] when medically ready. He is a bedhold and will not need auth to return unless he goes back as skilled. manager building to follow and assist as needed. Length of Stay (Days): 2 GMLOS: 3.5 Problem: Potential for Compromised Skin Integrity Goal: Skin Integrity is Maintained or Improved Outcome: Progressing Problem: Urinary Incontinence Goal: Perineal skin integrity is maintained or improved Outcome: Progressing Sent updated notes to return back to [facility] per TCC request. Await review and response regarding ability to accept. TCC notified. Referral placed to return back to [facility] per TCC request. Await review and response regarding ability to accept. TCC notified. Care Managment Initial Assessment Date: 10/19/2024 Patient Name: Will Jacinto : 1965 Patient Information Source of Information: Patient Cognition/Language: WFL - Within Functional Limits Permission given to speak with patient scheduling representative/caregiver as indicated: Confirmation of Payer with patient/family: Payer Name: Golden: Confirmation of Primary Care Physician: Primary Caregiver: Other (Comment) (Facility staff) If assistance needed, confirmed caregiver ready, willing and able to care for patient at discharge: Confirmed with: Living Arrangements Current Residence: Number of Floors Number of Entry Steps: Bed/Bath Levels: Facility: [facility] Facility Name: [facility] Plan to Return: Yes Lives with: Other (Comment) (LTC at facility) Support Systems: Home care staff Activities of Daily Living Ambulation: Assistance Bathing/Dressing: Assistance Elimination/Continence/Toileting : Assistance Feeding: Independent Who Assists with Activities of Daily Living: Instrumental Activities of Daily Living Prescription Coverage: Yes Pharmacy Used: Facility pharmacy Medication Management: Medication dispenser Who assists with medication securing and setup?: Facility nurse Transportation/Shopping: Assistance Provider Transportation/Shopping Assistance Provider Name: Set up by facility Transportation Mode: Needs Assistance with Transportation at Discharge: Yes Meal Preparation: Assistance Provider Meal Prep Assistance Provider Name: Facility staff Laundry/Cleaning: Assistance Provider Laundry/Cleaning Assistance Provider Name: Facility staff Finances/Bill Paying: Assistance Provider Finances/Bill Payer Assistance Provider Name: Facility staff Communication: Independent Types of Care Services/Equipment Utilized Care Services: Dialysis Type: NA Durable Medical Equipment: Patient's Goal/Discharge Plan Patient expects to be discharged to: [facility] Discharge Planning Actions: Continue to follow Patient's Choice Rights and [employer] and Collaborative Relationships Disclosed as Indicated for Post-Acute Care: Interdisciplinary Team Engagement: Social Work Referral for: Additional Information: Pt admitted to for gall bladder inflammation. Met with pt at bedside, introduced self and explained role. Pt has insurance with RX coverage, active with PCP. He is a LTC resident at [facility] and would like to return to facility. Pt requires assistance with all ADLS. Requires a deedee for transfers. Tasked WIRE STITCHER OPERATOR to send return referral to [facility]. Gen surg and ID following. Endocrinology consulted. Receiving IV ATB and fluids. NPO at this time. Pt to have biliary drain placed today. Fecal occult stool positive. Discharge plan will be to return to [facility] once medically ready. manager building to follow and assist as needed. Gill Brown RN Problem: Knowledge Deficit Goal: Patient/family/caregiver demonstrates understanding of disease process, treatment plan, medications, and discharge instructions Outcome: Progressing Problem: Knowledge Deficit Goal: Patient/family/caregiver demonstrates understanding of disease process, treatment plan, medications, and discharge instructions Outcome: Progressing Problem: Potential for Compromised Skin Integrity Goal: Nutritional status is improving Outcome: Progressing Problem: Urinary Incontinence Goal: Perineal skin integrity is maintained or improved Outcome: Progressing documented in this encounter [facility] 10-23-2024 Note Formatting of this n ote might be different from the original. Asked by [facility] to set transport to [facility]. [facility] in unit/room [place] [id number] on 10/23/2024 is scheduled to arrive at 2:30pm EST! [facility] is handling this ride and you can contact them at . Pt, nurse, unit sec, TCC, and facility informed of time. [facility] 10-23-2024 Note Formatting of this n ote might be different from the original. Asked by [facility] to set transport to [facility]. [facility] for [facility] M. in unit/room [facility] [id number] on 10/23/2024 is scheduled to arrive at 2:30pm EST! [facility] is handling this ride and you can contact them at . Pt, nurse, unit sec, TCC, and facility informed of time. [facility] 10-23-2024 History of Presen t illness Narrative Patient discharged before I was able to round on patient. Patient admitted to [facility] with acute cholecystitis and treated medically. Patient uses U500 130 units tidac and Lantus 47 units bid at home. Insulin doses are reduced due to hospitalization. Blood sugars reviewed and remain elevated. Recommendations: Discharge patient on home doses of: u500 130 units tidac, Lantus 47 units bid Images from the original note were not included. [facility] - Infectious Diseases Attending Progress Note Subjective: Follow up for sepsis, acute cholecystitis. S/p ultrasound guided placement of a drainage catheter into the gallbladder on 10/19/24. He was alert, laying on bed, more conversant, c/o abdominal pain- rated as 7/10, denied fever, chill or any new complaint, he had similar symptoms in January of this year-which were resolved on its own, he appeared comfortable. He was admitted on 10/18/24 from SNF with abdominal pain, nausea, vomiting, chest pain since 10/16/24; he characterized his pain as persistent, mainly in the middle and on right side of abdomen, rated as 7/10; denied fever, chill, dysuria; in ED, he was afebrile but tachycardic (P 93), CT abdomen showed distended gallbladder with suspected gallbladder wall edema, labs showed leukocytosis (25.9 k), lactic acidosis (2.2), ceftriaxone and metronidazole were given initially, then, pip/tazo. He has h/o DM, HTN, Lymphedema, endometrial cancer, DVT, morbid obesity disorder. He was examined; notes, labs, imaging were reviewed; treatment plan was discussed; clinical informations were documented in electronic record. Objective: Vitals: Patient Vitals for the past 24 hrs: BP Temp Temp src Pulse Resp SpO2 Height 10/23/24 0814 127/54 36.5 C (97.7 F) Temporal 85 20 97 % -- 10/22/24 1946 147/74 36.7 C (98.1 F) Temporal 79 20 96 % -- 10/22/24 1453 145/68 36.3 C (97.4 F) Temporal 91 18 97 % -- 10/22/24 1316 -- -- -- -- -- -- 1.676 m (5' 6") Physical Exam Vitals and nursing note reviewed. Constitutional: General: He is obese, ill-appearing. Appearance: He is well-developed. HENT: Head: Normocephalic and atraumatic. Eyes: Conjunctiva/sclera: Conjunctivae normal. Cardiovascular: Rate and Rhythm: Normal rate and regular rhythm. Heart sounds: No murmur heard. Pulmonary: Effort: Pulmonary effort is normal. No respiratory distress. Breath sounds: Normal breath sounds. Abdominal: General: There is no distension. Palpations: Abdomen is firm on palpation. Tenderness: There is abdominal tenderness over epigastric and right mid abdomen decreased from before. Musculoskeletal: General: No swelling. Cervical back: Neck supple. Comments: Right lower extremity amputation (AKA), stump looked ok. Skin: General: Skin is warm and dry. Capillary Refill: Capillary refill takes less than 2 seconds. Neurological: Mental Status: He is alert. Psychiatric: Mood and Affect: Mood normal. Labs: Recent Labs 10/21/24 0137 10/22/24 0054 10/23/24 0127 NA 135* 139 137 K 3.3* 3.3* 3.4* CL 100 104 101 CO2 23 24 29 BUN 48* 35* 21 CREATININE 1.35 1.05 0.84 GLUCOSE 112* 148* 214* CALCIUM 8.8 8.7 8.7 PROT 6.6 6.4 6.1* BILITOT 0.3 0.3 0.3 ALKPHOS 135 127 115 AST 20 19 18 ALT 42 32 27 Recent Labs 10/21/24 0137 10/22/24 0054 10/23/24 0127 WBC 11.9* 9.7 7.5 HGB 10.2* 9.7* 9.5* HCT 31.6 30.0 29.9 PLT 396 419 407 LYMPHOPCT 15.3 15.9 24.6 MONOPCT 6.8 8.2 10.6 BASOPCT 0.6 0.5 0.7 NEUTROABS 8.9* 7.1 4.5 Crp 261.6 Micro: No results for input(s): "COVID19" in the last 72 hours. 10/19/2024 1508 10/19/2024 1511 Aerobic and Anaerobic Culture with Stain [[id number]] Bile In process Component Value No component results 10/19/2024 1508 10/19/2024 2159 Culture, Aerobic Bacteria with Gram Stain [[id number]] Bile Preliminary result Component Value Culture Culture in progress P Gram Stain Result Few Polymorphonuclear leukocytes per low power field P No organisms seen P 10/19/2024 1508 10/19/2024 1511 Anaerobic culture [[id number]] Bile In process Component Value No component results 10/19/2024 1352 10/20/2024 1147 Culture, Aerobic Bacteria with Gram Stain [[id number]] Bile from Gallbladder Preliminary result Component Value Culture No growth at 18-24 hours P Gram Stain Result Few Polymorphonuclear leukocytes per low power field P No organisms seen P 10/19/2024 1352 10/19/2024 1415 Aerobic and Anaerobic Culture with Stain [[id number]] Bile from Gallbladder In process Component Value No component results 10/19/2024 1352 10/19/2024 1415 Anaerobic culture [[id number]] Bile from Gallbladder In process Component Value No component results 10/19/2024 0155 10/19/2024 0207 Occult blood, stool [[id number]] (Abnormal) Stool from Per Rectum Final result Component Value Fecal occult blood Positive Abnormal 10/18/2024 2343 10/20/2024 0735 Urine culture [[id number]] Urine, Clean Catch Final result Component Value Urine Culture Insignificant growth based on current clinical guidelines Lines: PIV site ok Radiography/Echo/Other: US guided percutaneous peritoneal or retroperitoneal fluid collection drainage [[id number]] Collected: 10/19/241420 Order Status: Completed Updated: 10/19/241422 Narrative: Patient Name: WILL JACINTO : 1965 Exam Date/Time: 10/19/2024 13:34 Procedure: US GUIDED PERCUTANEOUS PERITONEAL OR RETROPERITONEAL FLUID COLLECTION DRAINAGE Ordering Provider: CRESPO ALAINA Reason For Exam: US guided cholecystostomy drain placement for acute cholecystitis Ultrasound-guided gallbladder drainage catheter placement The benefits and risks of the procedure were discussed with the patient. The patient agreed to proceed. Conscious Sedation: An independent trained nurse under my supervision monitored the patient during the procedure and administered 1 mg of Versed and 50 ug of Fentanyl intravenously. The monitoring time was 30 minutes. Sterile technique was utilized. The skin was cleaned with 2% chlorhexidine. Sterile drapes were placed. I washed my hands prior to the procedure. I wore a cap, mask, sterile gown and sterile gloves during the procedure. Lidocaine was applied for local anesthesia. Using ultrasound guidance, 18-gauge needle was inserted from an anterior approach into the gallbladder. Bile was aspirated. A specimen was submitted for Gram stain and culture. Wire was advanced. Subcutaneous tract was dilated. An 8 [place] drainage catheter advanced over the wire. The catheter was attached to a bag. A dressing was applied. Impression: Successful placement of a drainage catheter into the gallbladder using ultrasound guidance. Report Dictated on Electronically Signed By: Alfredito Baumann MD Electronically Signed Date/Time: 10/19/2024 2:22 PM EST US abdomen limited [[id number]] Collected: 10/18/242011 Order Status: Completed Updated: 10/18/242021 Narrative: Patient Name: WILL JACINTO : 1965 Exam Date/Time: 10/18/2024 19:36 Procedure: US ABDOMEN LIMITED Ordering Provider: WOODALL FELIX Reason For Exam: possible acute cholecystitis ULTRASOUND OF RIGHT UPPER QUADRANT CLINICAL INDICATION: possible acute cholecystitis TECHNIQUE: Real-time ultrasound of the right upper quadrant of the abdomen. COMPARISON: Ultrasound abdomen Limited, October,; CT abdomen and pelvis, October,. FINDINGS: Gallbladder distended and contains sludge and shadowing calculi. Gallbladder wall thickened measuring up to 6 mm, with probable mural edema and trace pericholecystic fluid Intra-and extrahepatic bile ducts are of normal caliber. Positive sonographic Caldwell's sign. Liver suboptimally visualized without focal abnormalities. Right kidney measures 12.8 cm in longest dimension. Approximately 1 cm, hyperechoic and nonshadowing focus in the lower pole region not appreciated on comparison CT. No significant hydronephrosis. Pancreas not adequately visualized due to overlying bowel gas. Impression: 1. Cholestasis, cholelithiasis, gallbladder wall thickening, with probable mural edema and trace pericholecystic fluid, as well as positive sonographic Caldwell's sign, suspicious for postinflammatory change, including acute cholecystitis. Clinical correlation and follow-up as indicated. Report Dictated on Electronically Signed By: Joel Haddad MD Electronically Signed Date/Time: 10/18/2024 8:[address] abdomen pelvis w contrast [[id number]] Collected: 10/18/241904 Order Status: Completed Updated: 10/18/241913 Narrative: [facility] 1965 [id number] Exam Date/Time: 10/18/2024 17:21 Procedure: CT ABDOMEN PELVIS W CONTRAST Ordering Provider: WOODALL FELIX Reason For Exam: Abdominal pain and distention with vomiting Indication: Abdominal pain vomiting. FINDINGS: Unenhanced abdomen pelvis with 75 mL Isovue-370 performed. Dose reduction and automated exposure control utilized. No free air. Distended stomach with air-fluid level. Bowel otherwise nondistended. Limited bowel assessment, lack of oral contrast. No convincing pneumatosis or abscess. Appendix not confidently seen. The gallbladder appears markedly distended with some suspected wall edema within limits of the study including artifact from motion, crisscross artifact. No convincing active disease of liver, the pancreas, spleen kidneys, adrenals, urinary bladder. No adenopathy. No definite aneurysm. No spinal compression. Impression: Distended gallbladder with suspected gallbladder wall edema concerning for acute cholecystitis. Distended stomach with air-fluid level may be related. Please correlate clinically. Follow-up recommended. CTR Dr Woodall. Report Dictated on Electronically Signed By: Javy Urias MD Electronically Signed Date/Time: 10/18/2024 7:[address] chest angiogram w and/or wo IV contrast [[id number]] Collected: 10/18/241856 Order Status: Completed Updated: 10/18/241912 Narrative: Patient Name: WILL JACINTO : 1965 Exam Date/Time: 10/18/2024 17:20 Procedure: CT CHEST ANGIOGRAM W AND/OR WO IV CONTRAST Ordering Provider: WOODALL FELIX Reason For Exam: Chest pain, shortness of breath, rule out pulmonary balloon History: Chest discomfort. Comparison: 06/28/2023 Findings: Dose reduction was employed with automated exposure control. Enhanced imaging of the chest was performed with 1 mm slices from neck to upper abdomen. 75 cc isovue 370 utilized. Additional images: 3-D imaging created and reviewed on independent platform for better detection of pathology. Exam is very limited due to severe motion artifact. Airway:Grossly patent. Mediastinum and great vessels: Limited due to motion. No large central PE visualized. Coronary arteries:No significant calcification. .No convincing emergent adenopathy within limits of the study. LUNGS:No convincing major volume loss. Very limited. Stable nodule right lung approximately 8mm; limited assessment due to artifact. Spine: No convincing acute or occult process.. Upper abdomen: Distended stomach with air-fluid level. Significance uncertain.. Impression: Impression:Very limited due to motion.. Consider repeat exam or VQ scan for persistent symptoms. Note made of distended stomach with air-fluid level. Report Dictated on Electronically Signed By: Javy Urias MD Electronically Signed Date/Time: 10/18/2024 7:05 PM EST Antimicrobials, Start/End Dates: Ceftr 10/18 Metro 10/18 Pip/tazo 10/19- Impression: Sepsis. Improved. Acute cholecystitis. Leukocytosis. Resolved. Type 2 diabetes. Bipolar disorder. 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 Morbid obesity disorder. Plan: Pt clinically improved, was admitted sick due to sepsis due to acute cholecystitis. US showed cholelithiasis. S/p percutaneous cholecystostomy tube placement on 10/19/24. He is afebrile, hemodynamically ok. His abdominal pain decreased from before. Cholecystostomy drainage fluid cx neg so far. Leukocytosis resolved. Question of recurrent cholecystitis (had similar symptoms in January). Substitute amox/clav for pip/tazo to complete a total of 10-d treatment. Moderate level complexity medical decision making. Please call with any further question. Total time of 35 minutes on this day of encounter spent on, but not limited to review of tests, medical records , complex history , review of external medical records, paper and electronic, counseling and education (patient, family member, caregiver), ordering medications, tests, and procedures, communication with other health care professions, independent interpretation of tests, care coordination, arrangement of outpatient antimicrobial therapy, post-hospitalization therapy and follow-up, and counseling for risks, benefits, and consideration of use of antimicrobials. Images from the original note were not included. [facility] Wound Care Progress Note Will Jacinto AGE: 58 y.o. GENDER: adult : 1965 Subjective: HISTORY of PRESENT ILLNESS HPI Will Jacinto is a 58 y.o. adult who presents for a wound care follow up. History of Wound Context: Patient states he is nauseated not vomiting, tamara score is 16 , no current pressure injury noted. Turned with turn wedges , TAP system for bed mobility . +incont. At times. Of bowel and bladder he states he doesn't get help in time, resides in ECF. +skin sweats a lot requires daily baths. +MASD on posterior thigh mostly left and labias, states he is getting barrier cream to that wants something for pain relief will write for calmoseptine. Folds get rashes from moisture mostly under upper body skin folds. No open draining areas. 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) Acquired absence of other toe(s), unspecified side (HCC) Anxiety disorder Bipolar 1 disorder ([facility]) Blood circulation, collateral Cellulitis chronic L lower leg COVID 12/08/2021 Depression Diabetes mellitus ([facility]) Type II, on insulin Disease of blood and blood forming organ Endometrial carcinoma (HCC) 11/25/2020 Endometrial hyperplasia Foot ulcer (HCC) Hx of blood clots RLE prior to amputation Hyperlipidemia Hypertension Lymphedema 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, RLE Morbidly obese (HCC) Muscle weakness Osteomyelitis (HCC) Osteomyelitis (HCC) 2019 RLE Other lack of coordination Other specified soft tissue disorders Other symbolic dysfunctions Schizophrenia ([facility]) Sleep apnea no CPAP Venous insufficiency PAST SURGICAL HISTORY Past Surgical History: Procedure Laterality Date ABCESS DRAINAGE Right 09/09/2018 FOOT; ACH COLONOSCOPY 09/19/[address] Hyde DILATION AND CURETTAGE OF UTERUS 05/18/2019 HYSTEROSCOPY 12/23/2021 LEG AMPUTATION THROUGH KNEE Right 06/16/2019 UPPER GASTROINTESTINAL ENDOSCOPY N/A 06/29/2023 Dr Sergio Sibley at [facility]; no specimens WISDOM TOOTH EXTRACTION FAMILY HISTORY Family History Problem Relation Name Age of Onset No Known Problems Mother No Known Problems Father SOCIAL HISTORY Social History Tobacco Use Smoking status: Never Smokeless tobacco: Never Vaping Use Vaping status: Never Used Substance Use Topics Alcohol use: No Drug use: Never ALLERGIES No Known Allergies MEDICATIONS No current facility-administered medications on file prior to encounter. Current Outpatient Medications on File Prior to Encounter Medication Sig Dispense Refill amLODIPine (Norvasc) 10 MG tablet Take 1 tablet (10 mg) by mouth daily. ARIPiprazole (Abilify) 10 MG tablet Every 24 hours. aspirin 81 MG EC tablet Take 1 tablet by mouth daily. atorvastatin (Lipitor) 10 MG tablet Take 1 tablet by mouth daily. bisacodyl (Dulcolax) 5 MG EC tablet Take 5 mg by mouth 2 times daily as needed for constipation. Do not crush, chew, or split. carvedilol (Coreg) 25 MG tablet Take 1 tablet (25 mg) by mouth in the morning and 1 tablet (25 mg) in the evening. Take with meals. ferrous sulfate 325 (65 Fe) MG tablet Take 1 tablet (325 mg) by mouth daily (with breakfast). FLUoxetine (PROzac) 40 MG capsule Take 40 mg by mouth daily. gabapentin (Neurontin) 100 MG capsule Take 100 mg by mouth in the morning and 100 mg before bedtime. hydrALAZINE (Apresoline) 25 MG tablet Take 25 mg by mouth 3 times daily. insulin glargine (Lantus) 100 UNIT/ML injection Inject 47 Units under the skin 2 times daily. insulin regular (HumuLIN R) 500 UNIT/ML CONCENTRATED injection Inject 130 Units under the skin 3 times daily. melatonin 10 MG tablet Take 10 mg by mouth Nightly as needed (insomnia). metoclopramide (Reglan) 10 MG tablet Take 1 tablet (10 mg) by mouth 4 times daily (before meals and nightly). Multiple Vitamin (multivitamin) capsule Take 1 capsule by mouth daily. pantoprazole (ProtoNix) 40 MG EC tablet Take 40 mg by mouth. polyethylene glycol, PEG, 3350 (Glycolax) 17 GM/SCOOP powder Take 17 g by mouth daily. torsemide (Demadex) 10 MG tablet Take 1 tablet (10 mg) by mouth daily. [DISCONTINUED] insulin regular (HumuLIN R U-500) 500 UNIT/ML CONCENTRATED injection Inject 90 Units under the skin daily (before lunch). [DISCONTINUED] insulin regular (HumuLIN R U-500) 500 UNIT/ML CONCENTRATED injection Inject 120 Units under the skin every morning (before breakfast). [DISCONTINUED] insulin regular (HumuLIN R U-500) 500 UNIT/ML CONCENTRATED injection Inject 100 Units under the skin daily (before dinner). [DISCONTINUED] megestrol (Megace) 20 MG tablet Take 1 tablet by mouth in the morning and 1 tablet before bedtime. lisinopril 40 MG tablet Take 0.5 tablets (20 mg) by mouth daily. (Patient not taking: Reported on 02/11/2024) magnesium hydroxide (Milk of Magnesia) 400 MG/5ML suspension Take 30 mL by mouth Nightly. REVIEW OF SYSTEMS Pertinent items are noted in HPI. Objective: BP 127/54 (BP Location: Right arm, Patient Position: Lying) Pulse 85 Temp 36.5 C (97.7 F) (Temporal) Resp 20 Ht 5' 6" (1.676 m) Wt (!) 320 lb (145 kg) SpO2 93% BMI 51.65 kg/m PHYSICAL EXAM General appearance: in no apparent distress, alert, oriented times 3, and cooperative Skin: warm and dry Pulmonary: Normal effort, no respiratory distress, no cyanosis and on 2 liters oxygen NC Abdomen: soft, nontender, and nondistended Extremities: edema left lower extremity Right AKA skin intact. Bilateral breasts: Slight excoriation noted with no open areas or drainage. 10/23/24 10/23/24 Bilateral buttocks: Excoriation and blanchable erythema noted with no open areas or drainage noted. 10/23/24 Labias: Excoriation and blanchable erythema noted with no open areas or drainage noted. 10/23/24 LABS CBC: Lab Results Component Value Date WBC 7.5 10/23/2024 HGB 9.5 (L) 10/23/2024 HCT 29.9 10/23/2024 MCV 85.2 10/23/2024 PLT 407 10/23/2024 BMP: Lab Results Component Value Date NA 137 10/23/2024 K 3.4 (L) 10/23/2024 CL 101 10/23/2024 CO2 29 10/23/2024 BUN 21 10/23/2024 CREATININE 0.84 10/23/2024 PT/INR: No results found for: "PROTIME", INR Prealbumin: No results found for: "PREALBUMIN" Albumin:No components found for: LABALBU Sed Rate:No results found for: SEDRATE Micro: No components found for: BC Assessment/Plan: MASD - bilateral buttock, posterior thighs, bilateral labias - calmoseptine ointment BID after hygiene Fungal- bilateral breast folds- miconazole powder to all skin folds BID after hygiene PREVENTION RECOMMENDATION: 1. Turn and reposition every 2 hours and PRN while in bed 2. Reposition every 1 hour while sitting up in chair. Limit time up in chair to 2 hour time intervals if patient is unable to reposition self. 3. Q2H incontinence checks 4. Monitor bony prominences for redness or skin breakdown 5. Change foam dressing for prevention applied to site/bony prominence every 7 days. Pull back foam dressing and reassess skin every shift. 6. Maintain head of bed at lowest elevation consistent with medical plan of care 7. Pressure redistribution mattress: P500, [place], Total Care Bariatric 8. Pressure redistribution cushion: waffle cushion in bedside chair 9. Pressure redistribution boots: Heel Medix boots or pillows to offload heels at all times 10. Pad/offload medical devices 11. Nutritional support 12. Barrier cream 13. Cleanse skin with PH balanced cleanser 14. Moisturize skin as needed Any questions or concerns please vocera or secure chat "wound care". Thank you for the consult! I personally obtained the bunch and critical portions of the history and physical exam. I reviewed the labs, imaging studies, and electronic medical record. I reviewed the chart documentation and discussed the patient with treatment team members. I have edited the note to reflect my clinical findings and my assessment and plan. Please note, the time of this note does not reflect the time I saw this patient today, but the time of this documentaton. Portions of this note including HPI, ROS, impression/plan, and examination may have been copied forward from admission to today as to provide important historical information essential in contributing to medical decision making. Documentation has been reviewed and edited as necessary to support clinical decision making for today's visit and to reflect my own independent evaluation of this patient. Decision making for today's visit and to reflect my own independent evaluation of this patient. Cosigned by Amadou Geronimo DO at 10/23/2024 4:55 PM EST Nutrition Assessment Type and Reason for Visit: Initial, Consult (DT ref for NPO/Clears- now advanced) Nutrition Recommendations/Plan: Continue with Adult diet Regular; 4 carb choices (60 gm/meal); Low Fat (less than or equal to 50 gm/day); Low Fiber Monitor diet tolerance and need to initiate additional oral nutritional supplements if not consistently meeting >50% of meals. Pt is tolerating diet today, better than yesterday. Please document pt's PO intakes via flowsheet to accurately assess PO intake adequacy. Monitor intakes, weights, and labs weekly. RD will follow. Malnutrition Assessment: Malnutrition Status: At risk for malnutrition (Comment) (altered GI) Context: Acute Illness Findings of the 6 clinical characteristics of malnutrition: Energy Intake: Mild decrease in energy intake (Comment) Weight Loss: No significant weight loss Body Fat Loss: No significant body fat loss Muscle Mass Loss: No significant muscle mass loss Fluid Accumulation: Moderate to Severe Extremities Quality Control Inspector Heading Strength: Not Performed Nutrition Assessment: Pt is a 58 y/o gender identity male, with complaints of ab and chest pain 2/2 Acute Cholecystitis s/p ton tube placement on 10/19 (POD#3) plan to maintain for 6 weeks per Gen Surg. Pt's diet was advanced to solids yesterday. PT reported some intolerance of his dinner last night, but so far, tolerating his meals today. Pt on GI soft restrictions: low fat/fiber and on CHO control to manage glucose levels. Pt's Hgb A1c has improved from 9.0% earlier this year in Dec to most recently 6.9% (10/19/24). Pt resides at [facility]. It seems that pt has little control over the meals he receives. Pt with currently with significant edema on board. Weight via bed scale 334# without zeroing the bed prior to checking weight. Pt is noted to be mostly wheelchair bound; with a hx of a right AKA d/t osteomyelitis. Wound care evaluated and only noted MASD/fungal areas. Estimated Daily Nutrient Needs: Energy Requirements Based On: Kcal/kg Weight Used for Energy Requirements: Adjusted (right AKA) Weight for Energy Calculation (kg): 53 kg Total Energy Requirements (kcals/day): 6280-6953 kcals (28-32 kcals/kg) Weight Used for Protein Requirements: Adjusted Weight in Kg Used for Protein Requirements: 53 kg Estimated Total Protein (g/day): 64-69g (1.2-1.3g/kg) Estimated Daily Total Fluid (ml/day): 1700 ml/day or per MD Nutrition Related Findings: +3 BLE, LLE pitting 4mm, RUE pitting 2mm edema; K+ 3.3, Glucose 258, 210, 151, Hgb A1c 6.9% (10/19/24), Hgb 9.7, Hct 30 Wound Type: Moisture Associate Skin Damage (MASD to bilateral buttocks, posterior thigh, fungal areas to bilateral breast folds) Current Nutrition Therapies: Adult diet Regular; 4 carb choices (60 gm/meal); Low Fat (less than or equal to 50 gm/day); Low Fiber Current Oral Intake Average Meal Intake: 51-75% Average Supplements Intake: None Ordered Anthropometric Measures: Height: 167.6 cm (5' 6") Current Body Weight: 152 kg (334 lb) Weight Source: Bed Scale Admission Body Weight: 132 kg (290 lb) Usual Body Weight: 132 kg (290 lb) (02/11/24) % Weight Change (Calculated): 15.2 [place] Body Weight (lbs) (Calculated): 130 lbs [place] Body Weight (Kg) (Calculated): 59 kg % [place] Body Weight (Calculated): 256.9 % BMI (kg/m2) (Calculated): 53.9 Weight Adjustment For: Amputation % Weight Adjustment: 10.1 - AKA Total Adjusted Percentage (Calculated): 10.1 Adjusted [place] Body Weight (lbs) (Calculated): 116.9 lbs Adjusted [place] Body Weight (kg) (Calculated): 53.14 kg Adjusted BMI (kg/m2) (Calculated): 59.3 BMI Categories: Obese Class 3 (BMI 40.0 or greater) Nutrition Diagnosis: Altered GI function related to acute injury/trauma, pain (Ton) as evidenced by GI abnormality (s/p ton tube placement) Nutrition Interventions: Nutrition Education/Counseling: No recommendation at this time Coordination of Nutrition Care: Continue to monitor while inpatient Plan of Care discussed with: Patient Goals: Goals: PO intake 75% or greater, by next RD assessment, other (specify) Specify Other Goals: Will tolerate diet without GI distress/symptoms Nutrition Monitoring and Evaluation: Behavioral-Environmental Outcomes: None Identified Food/Nutrient Intake Outcomes: Diet Advancement/Tolerance, Food and Nutrient Intake Physical Signs/Symptoms Outcomes: Biochemical Data, GI Status, Nausea or Vomiting, Fluid Status or Edema, Nutrition Focused Physical Findings, Skin, Weight Discharge Planning: Continue current diet Fernanda Chappell RD Contact: *[phone] or via Secure Chat Hospitalist Progress Note 10/22/2024 Subjective: Admit Date: 10/18/2024 PCP: Jared Guzman Room#: [id number] A BRIEF HOSPITAL COURSE: Admitted for abdominal pain. CT /USG abdomen suggestive of acute cholecystitis. Surgery consulted . S/o USG guided cholecystostomy tube placement on 10/19 Interval History: Tolerating diet Wean oxygen as tolerated Afebrile Adult diet Regular; 4 carb choices (60 gm/meal); Low Fat (less than or equal to 50 gm/day); Low Fiber 24HR INTAKE/OUTPUT: Intake/Output Summary (Last 24 hours) at 10/22/2024 1246 Last data filed at 10/21/2024 1318 Gross per 24 hour Intake -- Output 125 ml Net -125 ml 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 other toe(s), unspecified side (HCC) Anxiety disorder Bipolar 1 disorder ([facility]) Blood circulation, collateral Cellulitis chronic L lower leg COVID 12/08/2021 Depression Diabetes mellitus ([facility]) Type II, on insulin Disease of blood and blood forming organ Endometrial carcinoma ([facility]) 11/25/2020 Endometrial hyperplasia Foot ulcer ([facility]) Hx of blood clots RLE prior to amputation Hyperlipidemia Hypertension Lymphedema 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, RLE Morbidly obese ([facility]) Muscle weakness Osteomyelitis (HCC) Osteomyelitis ([facility]) 2019 RLE Other lack of coordination Other specified soft tissue disorders Other symbolic dysfunctions Schizophrenia ([facility]) Sleep apnea no CPAP Venous insufficiency LABS: CBC: Recent Labs 10/20/24 0642 10/21/247 10/22/24 005 WBC 13.4* 11.9* 9.7 RBC 3.85 3.73 3.56 HGB 10.5* 10.2* 9.7* HCT 33.0 31.6 30.0 MCV 85.7 84.7 84.3 RDW 13.9 13.4 13.5 PLT 353 396 419 BMP: Recent Labs 10/20/24 0642 10/21/2413610/22/24 005 NA 133* 135* 139 K 3.6 3.3* 3.3* CL 98 100 104 CO2 21* 23 24 BUN 48* 48* 35* CREATININE 1.50 1.35 1.05 GLUCOSE 461* 112* 148* CALCIUM 9.0 8.8 8.7 ANIONGAP 14* 12 11 LIVER PROFILE: Recent Labs 10/20/24 0642 10/21/24 0137 10/22/24 0054 AST 20 20 19 ALT 53 42 32 BILITOT 0.5 0.3 0.3 ALKPHOS 155 135 127 PROT 6.8 6.6 6.4 PT/INR: Recent Labs 10/19/24 1308 PROTIME 14.0* INR 1.3* CARDIAC ENZYMES: No results for input(s): "TROPONINI" in the last 72 hours. Procalcitonin: Lab Results Component Value Date PROCAL 2.00 (H) 10/20/2024 COVID-19 PCR: No results for input(s): "COVID19" in the last 72 hours. Objective: Vitals: BP 156/75 Pulse 86 Temp (!) 35.7 C (96.3 F) (Temporal) Resp 17 Ht 5' 6" (1.676 m) Wt (!) 320 lb (145 kg) SpO2 96% BMI 51.65 kg/m Pulse Ox: SpO2 Av.5 % Min: 95 % Max: 96 % Supplemental O2: O2 Flow Rate (L/min): 1 L/min Physical Exam Constitutional: Appearance: He is obese. Cardiovascular: Rate and Rhythm: Normal rate and regular rhythm. Pulses: Normal pulses. Heart sounds: Normal heart sounds. Pulmonary: Effort: Pulmonary effort is normal. Breath sounds: Normal breath sounds. Abdominal: Comments: Right UQ drain + Musculoskeletal: Comments: Right AKA Edema + Neurological: General: No focal deficit present. Mental Status: He is alert. Comments: Mostly wheelchair bound at baseline Medications: Scheduled PRN amLODIPine, 10 mg, Oral, Daily ARIPiprazole, 10 mg, Oral, Daily aspirin, 81 mg, Oral, Daily atorvastatin, 10 mg, Oral, Daily carvedilol, 25 mg, Oral, BID WC ferrous sulfate, 325 mg, Oral, Daily with breakfast FLUoxetine, 40 mg, Oral, Daily gabapentin, 100 mg, Oral, BID hydrALAZINE, 25 mg, Oral, TID influenza, 0.5 mL, IntraMUSCular, Prior to discharge insulin glargine, 44 Units, SubCUTAneous, BID insulin regular, 60 Units, SubCUTAneous, TID AC magnesium hydroxide, 30 mL, Oral, Nightly menthol-zinc oxide, 1 Application, Topical, BID [Held by provider] metoclopramide, 10 mg, Oral, 4x daily AC & HS miconazole, , Topical, BID pantoprazole (ProtoNix) 40 mg in sodium chloride (PF) 0.9 % 10 mL injection, 40 mg, IntraVENous, BID piperacillin-tazobactam, 3,375 mg, IntraVENous, q8h sodium chloride 0.9%, 10 mL, IntraVENous, 2 times per day torsemide, 10 mg, Oral, Daily PRN medications: acetaminophen OR acetaminophen, bisacodyl, dextrose, dextrose, glucagon (rDNA), glucose, HYDROmorphone, ipratropium-albuterol, Melatonin, naloxone, ondansetron ODT OR ondansetron, sodium chloride, sodium chloride 0.9% Continuous Assessment Data: (CAT1) Reviewed 1 notes from different specialty or health system (each=1). (LOW: 2x CAT1 or independent historian MOD: 3x CAT1 or 1x CAT3 EXTENSIVE: 3x CAT1 and 1x CAT3) Acute, acute on chronic, unstable/uncontrolled chronic problems/diagnoses: Acute cholecystitis - USG( cholestasis, cholelithiasis, GB wall thickening with probable mural edema and trace pericholecystic collection). CT - distended GB. Surgery consulted. On zosyn. USG guided cholecystomy tube placement on 10/19 Severe sepsis, POA , due to above Leucocytosis- improved DM with hyperglycemia Mild hyponatremia - improved Obesity Schizophrenia /mood disorder Mild renal insuffiencey - improved Stable chronic problems affecting care, new non-acute diagnoses: Morbid obesity Type 2 diabetes Depression Bipolar disorder History of osteomyelitis of right lower extremity with right above-knee amputation Schizophrenia Obstructive sleep apnea Lymphedema HTN HLP Diabetic neuropathy Plan As a result of the above findings & factors, the following mgmt was pursued: - continue with zosyn while in hospital. - DC on Augmentin to complete 10 day course -total - possible DC in am - am labs, replace lytes prn - PT/OT/CM/SW - delirium precautions: increase activity - DVT prophylaxis: enoxaparin and encourage ambulation Advance Directive: DNR-CCA Anticipated Discharge Extended Emergency Contact Information Primary Emergency Contact: Jovana Quesada (POA) Relation: Niece Secondary Emergency Contact: Carola Lubin Mobile Relation: Other Álvaro Thomas MD Division of Hospitalist Medicine [facility] Hospitalist Progress Note 10/21/2024 Subjective: Admit Date: 10/18/2024 PCP: Jared Guzman Room#: [id number] A BRIEF HOSPITAL COURSE: Admitted for abdominal pain. CT /USG abdomen suggestive of acute cholecystitis. Surgery consulted . S/o USG guided cholecystostomy tube placement on 10/19 Interval History: Doing better. Tolerating diet Adult diet Regular; 4 carb choices (60 gm/meal); Low Fat (less than or equal to 50 gm/day); Low Fiber 24HR INTAKE/OUTPUT: No intake or output data in the 24 hours ending 10/21/24 1156 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 other toe(s), unspecified side (HCC) Anxiety disorder Bipolar 1 disorder (HCC) Blood circulation, collateral Cellulitis chronic L lower leg COVID 12/08/2021 Depression Diabetes mellitus ([facility]) Type II, on insulin Disease of blood and blood forming organ Endometrial carcinoma ([facility]) 11/25/2020 Endometrial hyperplasia Foot ulcer (HCC) Hx of blood clots RLE prior to amputation Hyperlipidemia Hypertension Lymphedema 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, RLE Morbidly obese (HCC) Muscle weakness Osteomyelitis (HCC) Osteomyelitis (HCC) 2019 RLE Other lack of coordination Other specified soft tissue disorders Other symbolic dysfunctions Schizophrenia (HCC) Sleep apnea no CPAP Venous insufficiency LABS: CBC: Recent Labs 10/19/24 0343 10/20/24 0642 10/21/24 0137 WBC 21.8* 13.4* 11.9* RBC 3.94 3.85 3.73 HGB 10.9* 10.5* 10.2* HCT 34.4 33.0 31.6 MCV 87.3 85.7 84.7 RDW 14.5 13.9 13.4 PLT 339 353 396 BMP: Recent Labs 10/19/24 0343 10/20/24 0642 10/21/24 0137 NA 135* 133* 135* K 3.6 3.6 3.3* CL 102 98 100 CO2 22 21* 23 BUN 32* 48* 48* CREATININE 1.15 1.50 1.35 GLUCOSE 223* 461* 112* CALCIUM 8.9 9.0 8.8 ANIONGAP 11 14* 12 LIVER PROFILE: Recent Labs 10/19/24 0343 10/20/24 0642 10/21/24 0137 AST 50* 20 20 ALT 83 53 42 BILITOT 0.8 0.5 0.3 ALKPHOS 151 155 135 PROT 6.5 6.8 6.6 PT/INR: Recent Labs 10/19/24 1308 PROTIME 14.0* INR 1.3* CARDIAC ENZYMES: No results for input(s): "TROPONINI" in the last 72 hours. Procalcitonin: Lab Results Component Value Date PROCAL 2.00 (H) 10/20/2024 COVID-19 PCR: No results for input(s): "COVID19" in the last 72 hours. Objective: Vitals: BP (!) 178/86 (BP Location: Right arm, Patient Position: Lying) Pulse 86 Temp 36.6 C (97.8 F) (Temporal) Resp 14 Ht 5' 6" (1.676 m) Wt (!) 320 lb (145 kg) SpO2 95% BMI 51.65 kg/m Pulse Ox: SpO2 Av.5 % Min: 95 % Max: 96 % Supplemental O2: O2 Flow Rate (L/min): 2 L/min Physical Exam Constitutional: Appearance: He is obese. Cardiovascular: Rate and Rhythm: Normal rate and regular rhythm. Pulses: Normal pulses. Heart sounds: Normal heart sounds. Pulmonary: Effort: Pulmonary effort is normal. Breath sounds: Normal breath sounds. Abdominal: Comments: Right UQ drain + Musculoskeletal: Comments: Right AKA Edema + Neurological: General: No focal deficit present. Mental Status: He is alert. Comments: Mostly wheelchair bound at baseline Medications: Scheduled PRN amLODIPine, 10 mg, Oral, Daily ARIPiprazole, 10 mg, Oral, Daily aspirin, 81 mg, Oral, Daily atorvastatin, 10 mg, Oral, Daily carvedilol, 25 mg, Oral, BID WC ferrous sulfate, 325 mg, Oral, Daily with breakfast FLUoxetine, 40 mg, Oral, Daily gabapentin, 100 mg, Oral, BID hydrALAZINE, 25 mg, Oral, TID influenza, 0.5 mL, IntraMUSCular, Prior to discharge insulin glargine, 44 Units, SubCUTAneous, BID insulin regular, 90 Units, SubCUTAneous, TID AC insulin regular, 0-18 Units, SubCUTAneous, TID WC magnesium hydroxide, 30 mL, Oral, Nightly menthol-zinc oxide, 1 Application, Topical, BID [Held by provider] metoclopramide, 10 mg, Oral, 4x daily AC & HS miconazole, , Topical, BID pantoprazole (ProtoNix) 40 mg in sodium chloride (PF) 0.9 % 10 mL injection, 40 mg, IntraVENous, BID piperacillin-tazobactam, 3,375 mg, IntraVENous, q8h sodium chloride 0.9%, 10 mL, IntraVENous, 2 times per day torsemide, 10 mg, Oral, Daily PRN medications: acetaminophen OR acetaminophen, bisacodyl, dextrose, dextrose, glucagon (rDNA), glucose, HYDROmorphone, ipratropium-albuterol, Melatonin, naloxone, ondansetron ODT OR ondansetron, sodium chloride, sodium chloride 0.9% Continuous Assessment Data: (CAT1) Reviewed 1 notes from different specialty or health system (each=1). (LOW: 2x CAT1 or independent historian MOD: 3x CAT1 or 1x CAT3 EXTENSIVE: 3x CAT1 and 1x CAT3) Acute, acute on chronic, unstable/uncontrolled chronic problems/diagnoses: Acute cholecystitis - USG( cholestasis, cholelithiasis, GB wall thickening with probable mural edema and trace pericholecystic collection). CT - distended GB. Surgery consulted. On zosyn. USG guided cholecystomy tube placement on 10/19 Severe sepsis, POA , due to above Leucocytosis DM with hyperglycemia Mild hyponatremia Obesity Schizophrenia /mood disorder Mild renal insuffiencey Stable chronic problems affecting care, new non-acute diagnoses: Morbid obesity Type 2 diabetes Depression Bipolar disorder History of osteomyelitis of right lower extremity with right above-knee amputation Schizophrenia Obstructive sleep apnea Lymphedema HTN HLP Diabetic neuropathy Plan As a result of the above findings & factors, the following mgmt was pursued: - continue with zosyn while in hospital. - DC on Augmentin to complete 10 day course - wok on DC with correctional case records supervisor - am labs, replace lytes prn - PT/OT/CM/SW - delirium precautions: increase activity - DVT prophylaxis: enoxaparin and encourage ambulation Advance Directive: DNR-CCA Anticipated Discharge Extended Emergency Contact Information Primary Emergency Contact: Jovana Quesada (POA) Relation: Niece Secondary Emergency Contact: Carola Lubin Mobile Relation: Other Álvaro Thomas MD Division of Hospitalist Medicine [facility] Images from the original note were not included. Attending Attestation [facility] - General Surgery Patient Name: Will Jacinto Date: 10/21/24 Patient seen and examined. Agree as below. Feels improved overall, minor abdominal pain remains and he is tolerating diet well. No nausea or vomiting. Eager for lunch. Not OOB. Voiding. Having flatus. Exam: Abdomen: Soft, distended but largely 2/2 morbid obesity. Drain with dark bilious output as anticipated, no blood. Assessment and Plan: 58 y.o. adult with BMI ~52 presenting with significant hyperglycemia, concern for acute cholecystitis, s/p percutaneous cholecystostomy tube on 10/19 Diet as tolerated, low fat PRN pain and nausea control Continue percutaneous cholecystostomy tube - needs to stay for total 6 weeks. Plan for outpatient follow up in 4 weeks and subsequent cholecystostomy tube study with planned removal thereafter if unobstructed. Ok for discharge once medically stable Plan for PO antibiotic course for 1 week of coverage Surgery to sign off; however, please do not hesitate to call with questions or concerns ongoing. I agree with the documentation below unless otherwise stated. I personally saw and evaluated the patient and performed an individual physical examination. In addition, I discussed the patient's condition and treatment options with them as does coincide with the assessment and plan that we have established. I have also reviewed the past medical, surgical, family, and social history and care plan unless otherwise noted. All of the patient's questions were answered. moderate medical decision making and case complexity with 35 minute total care time including chart review, care coordination and face to face encounter was spent discussing/counseling the patient regarding the care plan for this patient. The patient was seen and examined independently and relevant data reviewed by myself. A full chart review was performed. Jarek Jenkins MD, MPH General Surgery Perfect Serve: Jarek Jenkins 1:03 PM 10/21/2024 GENERAL SURGERY Progress Note PATIENT NAME: Will Jacinto TODAY'S DATE: 10/21/2024 SUBJECTIVE: Follow up on abdominal pain. Patient seen this morning sitting up in bed eating breakfast sandwich. He notes improvement in pain and denies new discomfort today. Patient denies fever/chills or nausea/vomiting. No overnight events noted. Pain controlled yes Other Complaints No Flatus/BM/or Ostomy function Yes OBJECTIVE: VITALS: BP (!) 178/86 (BP Location: Right arm, Patient Position: Lying) Pulse 86 Temp 36.6 C (97.8 F) (Temporal) Resp 14 Ht 5' 6" (1.676 m) Wt (!) 320 lb (145 kg) SpO2 95% BMI 51.65 kg/m INTAKE/OUTPUT: I/O last 3 completed shifts: In: 600 (4.1 mL/kg) [P.O.:600] Out: 30 (0.2 mL/kg) [Drains:30] Weight: 145.1 kg No intake/output data recorded. REVIEW OF SYSTEMS: Pertinent positives and negatives as per interval history section PHYSICAL EXAM: CONSTITUTIONAL: A&O x 3, LUNGS: Resp effort easy and unlabored, breath sounds normal CARDIOVASCULAR: RRR ABDOMEN: soft, mildly distended, nontender, peritoneal signs absent. Ton drain with dark drainage in bag MUSCULOSKELETAL: Normal range of motion NEUROLOGIC: Level of Alertness: alert PSYCHIATRIC: Speech is normal SKIN: Warm, dry, and intact Data: CBC: Recent Labs 10/19/24 0343 10/20/24 0642 10/21/24 0137 WBC 21.8* 13.4* 11.9* HGB 10.9* 10.5* 10.2* HCT 34.4 33.0 31.6 PLT 339 353 396 BMP: Recent Labs 10/19/24 0343 10/20/24 0642 10/21/24 0137 NA 135* 133* 135* K 3.6 3.6 3.3* CL 102 98 100 CO2 22 21* 23 BUN 32* 48* 48* CREATININE 1.15 1.50 1.35 GLUCOSE 223* 461* 112* Hepatic: Recent Labs 10/19/24 0343 10/20/24 0642 10/21/24 0137 AST 50* 20 20 ALT 83 53 42 BILITOT 0.8 0.5 0.3 ALKPHOS 151 155 135 ASSESSMENT AND PLAN: Mr. Jacinto is a 58 y.o. M presenting with abdominal pain -US with cholestasis, cholelithiasis, wall thickening, with probable mural edema and trace pericholecystic fluid with (+)sonographic Caldwell sign -CT demonstrates distended gallbladder with suspected wall edema, distended stomach with air-fluid level -Biliary drain placed 10/20, culture without growth so far -WBC improved 11.9 Hgb 10.2, bilirubin 0.3 -Glucose improved 185, endocrinology following -Soft, low fat diet -IV Zosyn, transition to PO on discharge -IVF -Fecal occult positive, GI following without plans for scope at this time -Medical mgmt per primary team Disposition: Patient with symptoms and imaging suspicious for acute cholecystitis, doing well s/p cholecystostomy placement. Okay for low fat diet as tolerated. No further surgical intervention, okay with discharge and transition to PO antibiotic course for 1 week of coverage total when medically cleared. Will see in 1 month for drain follow up and to arrange cholangiogram. Will sign off. Patient counseled on risks, benefits, and alternatives of treatment plan today. Patient states an understanding and willingness to proceed with plan. KELLEY Kaplan Images from the original note were not included. [facility] - Infectious Diseases Attending Progress Note Subjective: Follow up for sepsis, acute cholecystitis. S/p ultrasound guided placement of a drainage catheter into the gallbladder on 10/19/24. He was alert, laying on bed, moaning with abdominal pain, rated as 7/10, no fever but tachycardic (P 100), he had BM last evening, on CLD, he mentioned about similar symptoms in January of this year-which were resolved on its own, he appeared ill. He was [facility] on 10/[facility]/24 from [facility] with abdominal pain, nausea, vomiting, chest pain since 10/16/24; he characterized his pain as persistent, mainly in the middle and on right side of abdomen, rated as 7/10; denied fever, chill, dysuria; in ED, he was afebrile but tachycardic (P 93), CT abdomen showed distended gallbladder with suspected gallbladder wall edema, labs showed leukocytosis (25.9 k), lactic acidosis (2.2), ceftriaxone and metronidazole were given initially, then, pip/tazo. He has h/o DM, HTN, Lymphedema, endometrial cancer, DVT, morbid obesity disorder. He was examined; notes, labs, imaging were reviewed; treatment plan was discussed; clinical informations were documented in electronic record. Objective: Vitals: Patient Vitals for the past 24 hrs: BP Temp Temp src Pulse Resp SpO2 10/20/24 0822 (!) 167/95 36.5 C (97.7 F) Temporal 100 16 95 % 10/20/24 0425 140/79 36.9 C (98.4 F) Temporal 99 22 95 % 10/20/24 0004 143/82 37.1 C (98.7 F) Temporal 101 24 96 % 10/19/24 2030 144/81 37.2 C (98.9 F) Temporal 103 24 95 % Physical Exam Vitals and nursing note reviewed. Constitutional: General: He is obese, ill-appearing. Appearance: He is well-developed. HENT: Head: Normocephalic and atraumatic. Eyes: Conjunctiva/sclera: Conjunctivae normal. Cardiovascular: Rate and Rhythm: Normal rate and regular rhythm. Heart sounds: No murmur heard. Pulmonary: Effort: Pulmonary effort is normal. No respiratory distress. Breath sounds: Normal breath sounds. Abdominal: General: There is distension. Palpations: Abdomen is firm on palpation. Tenderness: There is abdominal tenderness over epigastric and right mid abdomen. Musculoskeletal: General: No swelling. Cervical back: Neck supple. Comments: Right lower extremity amputation (AKA), stump looked ok. Skin: General: Skin is warm and dry. Capillary Refill: Capillary refill takes less than 2 seconds. Neurological: Mental Status: He is alert. Psychiatric: Mood and Affect: Mood normal. Labs: Recent Labs 10/18/24 1640 10/19/24 0343 10/20/24 0642 NA 137 135* 133* K 4.1 3.6 3.6 CL 103 102 98 CO2 21* 22 21* BUN 24* 32* 48* CREATININE 1.16 1.15 1.50 GLUCOSE 226* 223* 461* CALCIUM 9.0 8.9 9.0 PROT 6.7 6.5 6.8 BILITOT 0.7 0.8 0.5 ALKPHOS 133 151 155 AST 50* 50* 20 ALT 67 83 53 PROCAL -- -- 2.00* Recent Labs 10/18/24 1640 10/19/24 0343 10/20/24 0642 WBC 25.9* 21.8* 13.4* HGB 11.6* 10.9* 10.5* HCT 36.8 34.4 33.0 PLT 373 339 353 LYMPHOPCT 2* 10* 8.0* MONOPCT 6 1* 5.7 BASOPCT -- -- 0.1 NEUTROABS -- -- 11.4* Crp 261.6 Micro: No results for input(s): "COVID19" in the last 72 hours. 10/19/2024 1508 10/19/2024 1511 Aerobic and Anaerobic Culture with Stain [[id number]] Bile In process Component Value No component results 10/19/2024 1508 10/19/2024 2159 Culture, Aerobic Bacteria with Gram Stain [[id number]] Bile Preliminary result Component Value Culture Culture in progress P Gram Stain Result Few Polymorphonuclear leukocytes per low power field P No organisms seen P 10/19/2024 1508 10/19/2024 1511 Anaerobic culture [[id number]] Bile In process Component Value No component results 10/19/2024 1352 10/20/2024 1147 Culture, Aerobic Bacteria with Gram Stain [[id number]] Bile from Gallbladder Preliminary result Component Value Culture No growth at 18-24 hours P Gram Stain Result Few Polymorphonuclear leukocytes per low power field P No organisms seen P 10/19/2024 1352 10/19/2024 1415 Aerobic and Anaerobic Culture with Stain [[id number]] Bile from Gallbladder In process Component Value No component results 10/19/2024 1352 10/19/2024 1415 Anaerobic culture [[id number]] Bile from Gallbladder In process Component Value No component results 10/19/2024 0155 10/19/2024 0207 Occult blood, stool [[id number]] (Abnormal) Stool from Per Rectum Final result Component Value Fecal occult blood Positive Abnormal 10/18/2024 2343 10/20/2024 0735 Urine culture [[id number]] Urine, Clean Catch Final result Component Value Urine Culture Insignificant growth based on current clinical guidelines Lines: PIV site ok Radiography/Echo/Other: US guided percutaneous peritoneal or retroperitoneal fluid collection drainage [[id number]] Collected: 10/19/241420 Order Status: Completed Updated: 10/19/241422 Narrative: Patient Name: WILL JACINTO : 1965 Exam Date/Time: 10/19/2024 13:34 Procedure: US GUIDED PERCUTANEOUS PERITONEAL OR RETROPERITONEAL FLUID COLLECTION DRAINAGE Ordering Provider: CRESPO ALAINA Reason For Exam: US guided cholecystostomy drain placement for acute cholecystitis Ultrasound-guided gallbladder drainage catheter placement The benefits and risks of the procedure were discussed with the patient. The patient agreed to proceed. Conscious Sedation: An independent trained nurse under my supervision monitored the patient during the procedure and administered 1 mg of Versed and 50 ug of Fentanyl intravenously. The monitoring time was 30 minutes. Sterile technique was utilized. The skin was cleaned with 2% chlorhexidine. Sterile drapes were placed. I washed my hands prior to the procedure. I wore a cap, mask, sterile gown and sterile gloves during the procedure. Lidocaine was applied for local anesthesia. Using ultrasound guidance, 18-gauge needle was inserted from an anterior approach into the gallbladder. Bile was aspirated. A specimen was submitted for Gram stain and culture. Wire was advanced. Subcutaneous tract was dilated. An 8 [place] drainage catheter advanced over the wire. The catheter was attached to a bag. A dressing was applied. Impression: Successful placement of a drainage catheter into the gallbladder using ultrasound guidance. Report Dictated on Electronically Signed By: Alfredito Baumann MD Electronically Signed Date/Time: 10/19/2024 2:22 PM EST US abdomen limited [[id number]] Collected: 10/18/242011 Order Status: Completed Updated: 10/18/242021 Narrative: Patient Name: WILL JACINTO : 1965 Exam Date/Time: 10/18/2024 19:36 Procedure: US ABDOMEN LIMITED Ordering Provider: WOODALL FELIX Reason For Exam: possible acute cholecystitis ULTRASOUND OF RIGHT UPPER QUADRANT CLINICAL INDICATION: possible acute cholecystitis TECHNIQUE: Real-time ultrasound of the right upper quadrant of the abdomen. COMPARISON: Ultrasound abdomen Limited, October,; CT abdomen and pelvis, October,. FINDINGS: Gallbladder distended and contains sludge and shadowing calculi. Gallbladder wall thickened measuring up to 6 mm, with probable mural edema and trace pericholecystic fluid Intra-and extrahepatic bile ducts are of normal caliber. Positive sonographic Caldwell's sign. Liver suboptimally visualized without focal abnormalities. Right kidney measures 12.8 cm in longest dimension. Approximately 1 cm, hyperechoic and nonshadowing focus in the lower pole region not appreciated on comparison CT. No significant hydronephrosis. Pancreas not adequately visualized due to overlying bowel gas. Impression: 1. Cholestasis, cholelithiasis, gallbladder wall thickening, with probable mural edema and trace pericholecystic fluid, as well as positive sonographic Caldwell's sign, suspicious for postinflammatory change, including acute cholecystitis. Clinical correlation and follow-up as indicated. Report Dictated on Electronically Signed By: Joel Haddad MD Electronically Signed Date/Time: 10/18/2024 8:[address] abdomen pelvis w contrast [[id number]] Collected: 10/18/241904 Order Status: Completed Updated: 10/18/241913 Narrative: Patient Name: WILL JACINTO : 1965 Exam Date/Time: 10/18/2024 17:21 Procedure: CT ABDOMEN PELVIS W CONTRAST Ordering Provider: WOODALL FELIX Reason For Exam: Abdominal pain and distention with vomiting Indication: Abdominal pain vomiting. FINDINGS: Unenhanced abdomen pelvis with 75 mL Isovue-370 performed. Dose reduction and automated exposure control utilized. No free air. Distended stomach with air-fluid level. Bowel otherwise nondistended. Limited bowel assessment, lack of oral contrast. No convincing pneumatosis or abscess. Appendix not confidently seen. The gallbladder appears markedly distended with some suspected wall edema within limits of the study including artifact from motion, crisscross artifact. No convincing active disease of liver, the pancreas, spleen kidneys, adrenals, urinary bladder. No adenopathy. No definite aneurysm. No spinal compression. Impression: Distended gallbladder with suspected gallbladder wall edema concerning for acute cholecystitis. Distended stomach with air-fluid level may be related. Please correlate clinically. Follow-up recommended. CTR Dr Wooadll. Report Dictated on Electronically Signed By: Javy Urias MD Electronically Signed Date/Time: 10/18/2024 7:[address] chest angiogram w and/or wo IV contrast [[id number]] Collected: 10/18/241856 Order Status: Completed Updated: 10/18/241912 Narrative: Patient Name: WILL JACINTO : 1965 Exam Date/Time: 10/18/2024 17:20 Procedure: CT CHEST ANGIOGRAM W AND/OR WO IV CONTRAST Ordering Provider: WOODALL FELIX Reason For Exam: Chest pain, shortness of breath, rule out pulmonary balloon History: Chest discomfort. Comparison: 06/28/2023 Findings: Dose reduction was employed with automated exposure control. Enhanced imaging of the chest was performed with 1 mm slices from neck to upper abdomen. 75 cc isovue 370 utilized. Additional images: 3-D imaging created and reviewed on independent platform for better detection of pathology. Exam is very limited due to severe motion artifact. Airway:Grossly patent. Mediastinum and great vessels: Limited due to motion. No large central PE visualized. Coronary arteries:No significant calcification. .No convincing emergent adenopathy within limits of the study. LUNGS:No convincing major volume loss. Very limited. Stable nodule right lung approximately 8mm; limited assessment due to artifact. Spine: No convincing acute or occult process.. Upper abdomen: Distended stomach with air-fluid level. Significance uncertain.. Impression: Impression:Very limited due to motion.. Consider repeat exam or VQ scan for persistent symptoms. Note made of distended stomach with air-fluid level. Report Dictated on Electronically Signed By: Javy Urias MD Electronically Signed Date/Time: 10/18/2024 7:05 PM EST Antimicrobials, Start/End Dates: Ceftr 10/18 Metro 10/18 Pip/tazo 10/19- Impression: Sepsis. Acute cholecystitis. Leukocytosis. Type 2 diabetes. Bipolar disorder. 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 Morbid obesity disorder. Plan: Pt sick due to sepsis due to acute cholecystitis. US showed cholelithiasis. S/p percutaneous cholecystostomy tube placement on 10/19/24. He is afebrile but c/o unchanged abdominal pain and remained tachycardic. Blood cxs were not drawn before administration of antimicrobials. Cholecystostomy drainage fluid cx neg so far. Leukocytosis improved. Question of recurrent cholecystitis (had similar symptoms in January). Continue pip/tazo. If GB fluid cx remain -negative and pt tolerates diet, change antb to amox/clav to complete a total of 10-d treatment. High level complexity medical decision making. Please call with any further question. Dr. Reddy covers weekend. Total time of 50 minutes on this day of encounter spent on, but not limited to review of tests, medical records , complex history , review of external medical records, paper and electronic, counseling and education (patient, family member, caregiver), ordering medications, tests, and procedures, communication with other health care professions, independent interpretation of tests, care coordination, arrangement of outpatient antimicrobial therapy, post-hospitalization therapy and follow-up, and counseling for risks, benefits, and consideration of use of antimicrobials. Hospitalist Progress Note 10/20/2024 Subjective: Admit Date: 10/18/2024 PCP: Jared Guzman Room#: B2-243/[id number] A BRIEF HOSPITAL COURSE: Admitted for abdominal pain. CT /USG abdomen suggestive of acute cholecystitis. Surgery consulted . S/o USG guided cholecystostomy tube placement on 10/19 Interval History: Still appear dry. BS markedly elevated- endocrinology managing Afebrile Better labs Diet changed to soft oral. Gentle hydration- hold diuresis for today. Adult diet Regular; 4 carb choices (60 gm/meal); Low Fat (less than or equal to 50 gm/day); Low Fiber 24HR INTAKE/OUTPUT: Intake/Output Summary (Last 24 hours) at 10/20/2024 1325 Last data filed at 10/20/2024 0714 Gross per 24 hour Intake 1611 ml Output 30 ml Net 1581 ml 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 other toe(s), unspecified side (HCC) Anxiety disorder Bipolar 1 disorder ([facility]) Blood circulation, collateral Cellulitis chronic L lower leg COVID 12/08/2021 Depression Diabetes mellitus ([facility]) Type II, on insulin Disease of blood and blood forming organ Endometrial carcinoma ([facility]) 11/25/2020 Endometrial hyperplasia Foot ulcer ([facility]) Hx of blood clots RLE prior to amputation Hyperlipidemia Hypertension Lymphedema 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, RLE Morbidly obese ([facility]) Muscle weakness Osteomyelitis (HCC) Osteomyelitis (HCC) 2019 RLE Other lack of coordination Other specified soft tissue disorders Other symbolic dysfunctions Schizophrenia ([facility]) Sleep apnea no CPAP Venous insufficiency LABS: CBC: Recent Labs 10/18/24 1640 10/19/24 0343 10/20/24 0642 WBC 25.9* 21.8* 13.4* RBC 4.28 3.94 3.85 HGB 11.6* 10.9* 10.5* HCT 36.8 34.4 33.0 MCV 86.0 87.3 85.7 RDW 14.5 14.5 13.9 PLT 373 339 353 BMP: Recent Labs 10/18/24 1640 10/19/24 0343 10/20/24 0642 NA 137 135* 133* K 4.1 3.6 3.6 CL 103 102 98 CO2 21* 22 21* BUN 24* 32* 48* CREATININE 1.16 1.15 1.50 GLUCOSE 226* 223* 461* CALCIUM 9.0 8.9 9.0 ANIONGAP 13 11 14* LIVER PROFILE: Recent Labs 10/18/24 1640 10/19/24 0343 10/20/24 0642 AST 50* 50* 20 ALT 67 83 53 BILITOT 0.7 0.8 0.5 ALKPHOS 133 151 155 PROT 6.7 6.5 6.8 PT/INR: Recent Labs 10/19/24 1308 PROTIME 14.0* INR 1.3* CARDIAC ENZYMES: No results for input(s): "TROPONINI" in the last 72 hours. Procalcitonin: Lab Results Component Value Date PROCAL 2.00 (H) 10/20/2024 COVID-19 PCR: No results for input(s): "COVID19" in the last 72 hours. Objective: Vitals: BP (!) 167/95 (BP Location: Right arm, Patient Position: Lying) Pulse 100 Temp 36.5 C (97.7 F) (Temporal) Resp 16 Ht 5' 6" (1.676 m) Wt (!) 320 lb (145 kg) SpO2 95% BMI 51.65 kg/m Pulse Ox: SpO2 Av.3 % Min: 95 % Max: 99 % Supplemental O2: O2 Flow Rate (L/min): 2 L/min Physical Exam Constitutional: Appearance: He is obese. Cardiovascular: Rate and Rhythm: Normal rate and regular rhythm. Pulses: Normal pulses. Heart sounds: Normal heart sounds. Pulmonary: Effort: Pulmonary effort is normal. Breath sounds: Normal breath sounds. Abdominal: Comments: Tenderness right upper quadrant, appear distended, soft, BS+ Right UQ drain + Musculoskeletal: Comments: Right AKA Neurological: General: No focal deficit present. Mental Status: He is alert. Medications: Scheduled PRN amLODIPine, 10 mg, Oral, Daily ARIPiprazole, 10 mg, Oral, Daily aspirin, 81 mg, Oral, Daily atorvastatin, 10 mg, Oral, Daily carvedilol, 25 mg, Oral, BID WC ferrous sulfate, 325 mg, Oral, Daily with breakfast FLUoxetine, 40 mg, Oral, Daily gabapentin, 100 mg, Oral, BID hydrALAZINE, 25 mg, Oral, TID influenza, 0.5 mL, IntraMUSCular, Prior to discharge insulin glargine, 44 Units, SubCUTAneous, BID insulin regular, 90 Units, SubCUTAneous, TID AC insulin regular, 0-18 Units, SubCUTAneous, TID WC magnesium hydroxide, 30 mL, Oral, Nightly [Held by provider] metoclopramide, 10 mg, Oral, 4x daily AC & HS pantoprazole (ProtoNix) 40 mg in sodium chloride (PF) 0.9 % 10 mL injection, 40 mg, IntraVENous, BID piperacillin-tazobactam, 3,375 mg, IntraVENous, q8h sodium chloride 0.9%, 10 mL, IntraVENous, 2 times per day [Held by provider] torsemide, 10 mg, Oral, Daily PRN medications: acetaminophen OR acetaminophen, bisacodyl, dextrose, dextrose, glucagon (rDNA), glucose, HYDROmorphone, ipratropium-albuterol, Melatonin, naloxone, ondansetron ODT OR ondansetron, sodium chloride, sodium chloride 0.9% Continuous lactated Ringer's, 100 mL/hr, Last Rate: 100 mL/hr (10/20/24 0859) Assessment Data: (CAT1) Reviewed 1 notes from different specialty or health system (each=1). (LOW: 2x CAT1 or independent historian MOD: 3x CAT1 or 1x CAT3 EXTENSIVE: 3x CAT1 and 1x CAT3) Acute, acute on chronic, unstable/uncontrolled chronic problems/diagnoses: Acute cholecystitis - USG( cholestasis, cholelithiasis, GB wall thickening with probable mural edema and trace pericholecystic collection). CT - distended GB. Surgery consulted. On zosyn. USG guided cholecystomy tube placement on 10/19 Severe sepsis, POA , due to above Leucocytosis DM with hyperglycemia Mild hyponatremia Obesity Schizophrenia /mood disorder Mild renal insuffiencey Stable chronic problems affecting care, new non-acute diagnoses: Morbid obesity Type 2 diabetes Depression Bipolar disorder History of osteomyelitis of right lower extremity with right above-knee amputation Schizophrenia Obstructive sleep apnea Lymphedema HTN HLP Diabetic neuropathy Plan As a result of the above findings & factors, the following mgmt was pursued: - feels better, s/p cholecystostomy tube placement. - continue with zosyn - diet advanced to soft -gentle hydration - labs in am - am labs, replace lytes prn - PT/OT/CM/SW - delirium precautions: increase activity - DVT prophylaxis: enoxaparin and encourage ambulation Advance Directive: DNR-CCA Anticipated Discharge Extended Emergency Contact Information Primary Emergency Contact: Jovana Quesada (POA) Relation: Ambrosio Secondary Emergency Contact: Carola Lubin Mobile Relation: Other Álvaro Thomas MD Division of Hospitalist Medicine [employer] Department of Internal Medicine Division of Endocrinology, Diabetes, & Metabolism Endocrinology Note Patient Name: Will Jacinto : 1965 AGE: 58 y.o. Room/Bed: Banner/Banner A Admission Date: 10/18/2024 Visit Date: 10/20/2024 Reason for Endocrine Consult: IDDM on u500 Provider/Team Requesting Consult: Shawna Estrada PCP: Jared Guzman Outpt District Sales Coordinator: Yes - Dr Lee- VV 10/27/2023 ASSESSMENT: DM 2 with hyperglycemia Insulin resistance Acute Cholecyctitis Abdominal pain PLAN: Increase u500 insulin 90 units with meals Continue humalog to 44 units BID One time u500 25 units dose this morning Initiate regular insulin high dose sliding scale ICU goal <180 GMF goal <150 POCT BG ACHS Hypoglycemia management per protocol Carb controlled diet ANTICIPATED ENDOCRINE HOME GOING RECOMMENDATIONS: Optimized for Discharge from Endocrine standpoint: Yes Home Going Endocrine Rx Recommendations-- Return to u500 130 units 3 times day with meals Return to lantus 47 units bid Outpt Follow Up-- Dr Lee or [employer] as available - message sent SUBJECTIVE/HPI: CHIEF COMPLAINT: Chief Complaint Patient presents with Abdominal Pain [facility]. Pt presents with abd pain, diarrhea, chest pain. Pt presents aox4 speaking in full and complete sentences. Chest Pain Nausea Presented to ED after abdominal pain that started on Wednesday evening (10/17/2024) Found to have Acute Cholecyctitis that needs to be managed medically, patient is on u500 units at [facility] Type of DM: 2 Onset of DM: unsure Home DM Medication Regimen: u500 per pen 130 units tidac, Lantus 47 units bid DM control (last A1c/glucose data): Lab Results Component Value Date HGBA1C 6.9 (H) 10/19/2024 Has been in ECF since 2017, Staff manages his glucose levels with finger sticks Staff administers his u500 insulin He received insulin from pens He eats 3 meals daily He does not exercise 10/20/2024- Glucose levels as below Did not receive Lantus dose last night as scheduled Glucose levels continue to increase this AM Has been tolerating liquids this AM States pain is controlled, but he just received medications He is drowsy but able to answer questions Drain to abdomen Glucose Date/Time Value Ref Range Status 10/20/2024 07:46 AM 445 (H) 70 - 100 mg/dL Final 10/19/2024 07:52 PM 396 (H) 70 - 100 mg/dL Final 10/19/2024 04:29 PM 374 (H) 70 - 100 mg/dL Final 10/19/2024 11:56 AM 336 (H) 70 - 100 mg/dL Final 10/19/2024 07:36 AM 299 (H) 70 - 100 mg/dL Final 10/19/2024 03:36 AM 207 (H) 70 - 100 mg/dL Final Review of Systems Constitutional: Negative for activity change, appetite change and unexpected weight change. Gastrointestinal: Negative for diarrhea, nausea and vomiting. Endocrine: Negative for polydipsia, polyphagia and polyuria. Genitourinary: Negative for dysuria. Skin: Negative for color change, pallor and wound. ROS negative except for those mentioned in HPI. OBJECTIVE: Vitals: 10/19/24 2030 10/20/24 0004 10/20/24 0425 10/20/24 0822 BP: 144/81 143/82 140/79 (!) 167/95 BP Location: Right arm Patient Position: Lying Pulse: 103 101 99 100 Resp: Temp: 37.2 C (98.9 F) 37.1 C (98.7 F) 36.9 C (98.4 F) 36.5 C (97.7 F) TempSrc: Temporal Temporal Temporal Temporal SpO2: 95% 96% 95% 95% Weight: Height: Physical Exam Vitals reviewed. Constitutional: General: He is not in acute distress. Appearance: Normal appearance. He is obese. He is ill-appearing. Comments: Very drowsy this AM, states he has had pain medications HENT: Head: Normocephalic and atraumatic. Left Ear: External ear normal. Nose: Nose normal. Mouth/Throat: Mouth: Mucous membranes are moist. Cardiovascular: Rate and Rhythm: Normal rate and regular rhythm. Pulses: Normal pulses. Pulmonary: Effort: Pulmonary effort is normal. No respiratory distress. Musculoskeletal: General: Normal range of motion. Skin: General: Skin is warm and dry. Neurological: General: No focal deficit present. Mental Status: He is alert. Psychiatric: Mood and Affect: Mood normal. Behavior: Behavior normal. 24 hour intake/output: Intake/Output Summary (Last 24 hours) at 10/20/2024 1115 Last data filed at 10/20/2024 0714 Gross per 24 hour Intake 1611 ml Output 30 ml Net 1581 ml Diet: Adult diet Regular; 4 carb choices (60 gm/meal); Low Fat (less than or equal to 50 gm/day); Low Fiber Medications (as per EMR): HomeMeds: Current Outpatient Medications Medication Instructions amLODIPine (NORVASC) 10 mg, Oral, Daily ARIPiprazole (Abilify) 10 MG tablet Every 24 hours aspirin 81 MG EC tablet 1 tablet, Daily atorvastatin (Lipitor) 10 MG tablet 1 tablet, Daily bisacodyl (DULCOLAX) 5 mg, 2 times daily PRN carvedilol (COREG) 25 mg, Oral, 2 times daily with meals ferrous sulfate 325 mg, Oral, Daily with breakfast FLUoxetine (PROZAC) 40 mg, Daily gabapentin (NEURONTIN) 100 mg, 2 times daily HumuLIN R 130 Units, 3 times daily hydrALAZINE (APRESOLINE) 25 mg, 3 times daily insulin glargine (LANTUS) 47 Units, 2 times daily insulin regular (HUMULIN R U-500) 90 Units, SubCUTAneous, Daily before lunch insulin regular (HUMULIN R U-500) 120 Units, SubCUTAneous, Daily before breakfast insulin regular (HUMULIN R U-500) 100 Units, SubCUTAneous, Daily before dinner lisinopril 20 mg, Oral, Daily magnesium hydroxide (Milk of Magnesia) 400 MG/5ML suspension 30 mL, Oral, Nightly megestrol (Megace) 20 MG tablet 1 tablet, 2 times daily melatonin 10 mg, Nightly PRN metoclopramide (REGLAN) 10 mg, Oral, 4 times daily before meals & nightly Multiple Vitamin (multivitamin) capsule 1 capsule, Daily pantoprazole (PROTONIX) 40 mg polyethylene glycol (PEG) 3350 (GLYCOLAX) 17 g, Daily torsemide (DEMADEX) 10 mg, Oral, Daily Scheduled Meds:amLODIPine, 10 mg, Oral, Daily ARIPiprazole, 10 mg, Oral, Daily aspirin, 81 mg, Oral, Daily atorvastatin, 10 mg, Oral, Daily carvedilol, 25 mg, Oral, BID WC ferrous sulfate, 325 mg, Oral, Daily with breakfast FLUoxetine, 40 mg, Oral, Daily gabapentin, 100 mg, Oral, BID hydrALAZINE, 25 mg, Oral, TID influenza, 0.5 mL, IntraMUSCular, Prior to discharge insulin glargine, 44 Units, SubCUTAneous, BID insulin regular, 90 Units, SubCUTAneous, TID AC insulin regular, 0-18 Units, SubCUTAneous, TID WC magnesium hydroxide, 30 mL, Oral, Nightly [Held by provider] metoclopramide, 10 mg, Oral, 4x daily AC & HS pantoprazole (ProtoNix) 40 mg in sodium chloride (PF) 0.9 % 10 mL injection, 40 mg, IntraVENous, BID piperacillin-tazobactam, 3,375 mg, IntraVENous, q8h sodium chloride 0.9%, 10 mL, IntraVENous, 2 times per day [Held by provider] torsemide, 10 mg, Oral, Daily Continuous Infusions:lactated Ringer's, 100 mL/hr, Last Rate: 100 mL/hr (10/20/24 0859) PRN Meds:PRN medications: acetaminophen OR acetaminophen, bisacodyl, dextrose, dextrose, glucagon (rDNA), glucose, HYDROmorphone, ipratropium-albuterol, Melatonin, naloxone, ondansetron ODT OR ondansetron, sodium chloride, sodium chloride 0.9% Diagnostic Workup: I reviewed pertinent Laboratory results, Radiographic results, and Other Clinical Notes at the time of today's encounter. Labs: No components found for: LABA1C No components found for: "EAG" Lab Results Component Value Date NA 133 (L) 10/20/2024 K 3.6 10/20/2024 CL 98 10/20/2024 CO2 21 (L) 10/20/2024 BUN 48 (H) 10/20/2024 CREATININE 1.50 10/20/2024 GLUCOSE 461 (HH) 10/20/2024 CALCIUM 9.0 10/20/2024 Lab Results Component Value Date CHLPL 125 08/29/2020 Lab Results Component Value Date TRIG 190 08/29/2020 Lab Results Component Value Date HDL 31 (A) 08/29/2020 Lab Results Component Value Date LDLCALC 56 08/29/2020 Lab Results Component Value Date VLDL 38 08/29/2020 No results found for: CHOLHDLRATIO No results found for: [id number] Lab Results Component Value Date TSH 1.037 12/31/2023 Radiology reportsas per the Radiologist Radiology: POCT glucose meter Result Date: 10/19/2024 Performed by: [facility], [address] [place] [id number] CLIA ID: [id number] POCT glucose meter Result Date: 10/19/2024 Performed by: [facility], [address] [place] [id number] CLIA ID: [id number] POCT glucose meter Result Date: 10/19/2024 [facility]formed by: [email or web address], [address] [place] [id number] CLIA ID: [id number] ECG 12 lead Sinus rhythm Left ventricular hypertrophy Anterior Q waves, possibly due to LVH Electronically Signed On 10-18-2024 23:06:53 EST by Sunitha Borja POCT glucose meter Result Date: 10/18/2024 Performed by: [facility], [address] [place] [id number] CLIA ID: [id number] US abdomen limited Result Date: 10/18/2024 [facility] 1965 [id number] Exam Date/Time: 10/18/2024 19:36 Procedure: US ABDOMEN LIMITED Ordering Provider: WOODALL FELIX Reason For Exam: possible acute cholecystitis ULTRASOUND OF RIGHT UPPER QUADRANT CLINICAL INDICATION: possible acute cholecystitis TECHNIQUE: Real-time ultrasound of the right upper quadrant of the abdomen. COMPARISON: Ultrasound abdomen Limited, 1 Tru, 2023; CT abdomen and pelvis, October,. FINDINGS: Gallbladder distended and contains sludge and shadowing calculi. Gallbladder wall thickened measuring up to 6 mm, with probable mural edema and trace pericholecystic fluid Intra-and extrahepatic bile ducts are of normal caliber. Positive sonographic Caldwell's sign. Liver suboptimally visualized without focal abnormalities. Right kidney measures 12.8 cm in longest dimension. Approximately 1 cm, hyperechoic and nonshadowing focus in the lower pole region not appreciated on comparison CT. No significant hydronephrosis. Pancreas not adequately visualized due to overlying bowel gas. 1. Cholestasis, cholelithiasis, gallbladder wall thickening, with probable mural edema and trace pericholecystic fluid, as well as positive sonographic Caldwell's sign, suspicious for postinflammatory change, including acute cholecystitis. Clinical correlation and follow-up as indicated. Report Dictated on Electronically Signed By: Joel Haddad MD Electronically Signed Date/Time: 10/18/2024 8:[address] abdomen pelvis w contrast Result Date: 10/18/2024 Patient Name: WILL JACINTO : 1965 Exam Date/Time: 10/18/2024 17:21 Procedure: CT ABDOMEN PELVIS W CONTRAST Ordering Provider: WOODALL FELIX Reason For Exam: Abdominal pain and distention with vomiting Indication: Abdominal pain vomiting. FINDINGS: Unenhanced abdomen pelvis with 75 mL Isovue-370 performed. Dose reduction and automated exposure control utilized. No free air. Distended stomach with air-fluid level. Bowel otherwise nondistended. Limited bowel assessment, lack of oral contrast. No convincing pneumatosis or abscess. Appendix not confidently seen. The gallbladder appears markedly distended with some suspected wall edema within limits of the study including artifact from motion, crisscross artifact. No convincing active disease of liver, the pancreas, spleen kidneys, adrenals, urinary bladder. No adenopathy. No definite aneurysm. No spinal compression. Distended gallbladder with suspected gallbladder wall edema concerning for acute cholecystitis. Distended stomach with air-fluid level may be related. Please correlate clinically. Follow-up recommended. CTR Dr Woodall. Report Dictated on Electronically Signed By: Javy Urias MD Electronically Signed Date/Time: 10/18/2024 7:[address] chest angiogram w and/or wo IV contrast Result Date: 10/18/2024 [facility] 1965 [id number] Exam Date/Time: 10/18/2024 17:20 Procedure: CT CHEST ANGIOGRAM W AND/OR WO IV CONTRAST Ordering Provider: WOODALL FELIX Reason For Exam: Chest pain, shortness of breath, rule out pulmonary balloon History: Chest discomfort. Comparison: 06/28/2023 Findings: Dose reduction was employed with automated exposure control. Enhanced imaging of the chest was performed with 1 mm slices from neck to upper abdomen. 75 cc isovue 370 utilized. Additional images: 3-D imaging created and reviewed on independent platform for better detection of pathology. Exam is very limited due to severe motion artifact. Airway:Grossly patent. Mediastinum and great vessels: Limited due to motion. No large central PE visualized. Coronary arteries:No significant calcification. .No convincing emergent adenopathy within limits of the study. LUNGS:No convincing major volume loss. Very limited. Stable nodule right lung approximately 8mm; limited assessment due to artifact. Spine: No convincing acute or occult process.. Upper abdomen: Distended stomach with air-fluid level. Significance uncertain.. Impression:Very limited due to motion.. Consider repeat exam or VQ scan for persistent symptoms. Note made of distended stomach with air-fluid level. 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 other toe(s), unspecified side (HCC) Anxiety disorder Bipolar 1 disorder (HCC) Blood circulation, collateral Cellulitis chronic L lower leg COVID 12/08/2021 Depression Diabetes mellitus (HCC) Type II, on insulin Disease of blood and blood forming organ Endometrial carcinoma (HCC) 11/25/2020 Endometrial hyperplasia Foot ulcer (HCC) Hx of blood clots RLE prior to amputation Hyperlipidemia Hypertension Lymphedema 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; no specimens WISDOM TOOTH EXTRACTION Allergy(ies): No Known Allergies Family History: Family History Problem Relation Name Age of Onset No Known Problems Mother No Known Problems Father Social History: Social History Tobacco Use Smoking status: Never Smokeless tobacco: Never Vaping Use Vaping status: Never Used Substance Use Topics Alcohol use: No Drug use: Never Portions of the information within this encounter were entered using an electronic dictation system. Best attempts were made to edit/proofread the information prior to note completion. Despite the review of information, some errors may remain. If there are questions related to the information contained within the note please contact the signing physician directly. I spent 35 minutes with the pt which involved coordination of care, medical evaluation, review of records, and/or counseling of the pt regarding his/her condition/disease state/prognosis on the date of this note. Images from the original note were not included. Attending Attestation [facility] - Surgery [facility] Surgery Patient Name: Will Gilliam McNarendralidia Date: 10/23/24 Patient seen and examined. Pain and leukocytosis improved after percutaneous cholecystostomy tube placement. Tolerating diet. No fevers or chills. Exam: Abdomen: Soft, nontender, nondistended, percutaneous cholecystostomy tube in place with bilious output Assessment and Plan: 58 y.o. adult with RUQ pain CT, RUQ US and clinical exam consistent with acute cholecystitis Patient with uncontrolled blood sugars, new oxygen requirement, not appropriate for surgery at present Therefore IV antibiotics and will obtain percutaneous cholecystostomy drainage performed Diet as tolerated Follow cultures of perc ton drain Medical management per primary Follow up as outpatient for drain management This case had moderate medical decision making and case complexity with 35 minute total care time including chart review, care coordination and face to face encounter. The patient was seen and examined independently and relevant data reviewed by myself. A full chart review was performed. I personally interviewed the patient and performed an individual physical examination. In addition, I discussed the patient's condition and treatment options with them. I have also reviewed and agree with the past medical, family and social history and care plan unless otherwise noted. All of the patient's questions were answered. Lilo Rizo MD General Surgery Pager #[phone] 10:55 AM 10/23/2024 GENERAL SURGERY Progress Note PATIENT NAME: Will Jacinto TODAY'S DATE: 10/20/2024 SUBJECTIVE: Follow up s/p cholecystostomy tube placement. Patient seen this morning sitting up in bed. He notes continued soreness, especially at drain insertion site, and moans throughout questioning. He denies fever/chills or nausea/vomiting and has tolerated CLD for breakfast without issue. Patient endorses flatus and BM last evening. Glucose elevated, no further events appreciated. Pain controlled Yes Other Complaints No Flatus/BM/or Ostomy function Yes OBJECTIVE: VITALS: BP (!) 167/95 (BP Location: Right arm, Patient Position: Lying) Pulse 100 Temp 36.5 C (97.7 F) (Temporal) Resp 16 Ht 5' 6" (1.676 m) Wt (!) 320 lb (145 kg) SpO2 95% BMI 51.65 kg/m INTAKE/OUTPUT: I/O last 3 completed shifts: In: 1686 (11.6 mL/kg) [P.O.:1245; I.V.:391 (2.7 mL/kg); IV Piggyback:50] Out: - (0 mL/kg) Weight: 145.1 kg I/O this shift: In: - Out: 30 [Drains:30] REVIEW OF SYSTEMS: Pertinent positives and negatives as per interval history section PHYSICAL EXAM: CONSTITUTIONAL: A&O x 3, LUNGS: Resp effort easy and unlabored, breath sounds normal CARDIOVASCULAR: RRR ABDOMEN: soft, distended, mild RUQ tenderness, peritoneal signs absent. Biliary drain with dark output in bag MUSCULOSKELETAL: Normal range of motion NEUROLOGIC: Level of Alertness: alert, drowsy PSYCHIATRIC: Speech is normal SKIN: Warm, dry, and intact Data: CBC: Recent Labs 10/18/24 1640 10/19/24 0343 10/20/24 0642 WBC 25.9* 21.8* 13.4* HGB 11.6* 10.9* 10.5* HCT 36.8 34.4 33.0 PLT 373 339 353 BMP: Recent Labs 10/18/24 1640 10/19/24 0343 10/20/24 0642 NA 137 135* 133* K 4.1 3.6 3.6 CL 103 102 98 CO2 21* 22 21* BUN 24* 32* 48* CREATININE 1.16 1.15 1.50 GLUCOSE 226* 223* 461* Hepatic: Recent Labs 10/18/24 1640 10/19/24 0343 10/20/24 0642 AST 50* 50* 20 ALT 67 83 53 BILITOT 0.7 0.8 0.5 ALKPHOS 133 151 155 ASSESSMENT AND PLAN: Mr. Jacinto is a 58 y.o. M presenting with abdominal pain -US with cholestasis, cholelithiasis, wall thickening, with probable mural edema and trace pericholecystic fluid with (+)sonographic Caldwell sign -CT demonstrates distended gallbladder with suspected wall edema, distended stomach with air-fluid level -Biliary drain placed 10/20, culture in process -WBC improved 13.4, Hgb 10.5, bilirubin 0.5 -Glucose 461, endocrinology following -Soft, low fat diet trial -IV Zosyn -IVF -Fecal occult positive, GI following without plans for scope at this time -Medical mgmt per primary team Disposition: Patient with symptoms and imaging suspicious for acute cholecystitis s/p cholecystostomy placement, still with soreness today but improved labs except for persistently high glucose. Okay for soft diet trial. No further surgical intervention planned, will continue to follow. Patient counseled on risks, benefits, and alternatives of treatment plan today. Patient states an understanding and willingness to proceed with plan. KELLEY Kaplan Nutrition rescreen completed. Patient is NPO/Clear liquid >3 days. Refer to Dietitian. Hospitalist Progress Note 10/19/2024 Subjective: Admit Date: 10/18/2024 PCP: Jared Guzman Room#: [id number]/B2-254 A BRIEF HOSPITAL COURSE: Admitted for abdominal pain. CT /USG abdomen suggestive of acute cholecystitis. Surgery consulted Interval History: Seen and examined. Pain on right upper quadrant Feels dry. Afebrile Mild distress NPO diet with enteral medications 24HR INTAKE/OUTPUT: Intake/Output Summary (Last 24 hours) at 10/19/2024 1112 Last data filed at 10/18/2024 2104 Gross per 24 hour Intake 75 ml Output -- Net 75 ml 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 other toe(s), unspecified side (HCC) Anxiety disorder Bipolar 1 disorder ([facility]) Blood circulation, collateral Cellulitis chronic L lower leg COVID 12/08/2021 Depression Diabetes mellitus ([facility]) Type II, on insulin Disease of blood and blood forming organ Endometrial carcinoma ([facility]) 11/25/2020 Endometrial hyperplasia Foot ulcer ([facility]) Hx of blood clots RLE prior to amputation Hyperlipidemia Hypertension Lymphedema 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, RLE Morbidly obese ([facility]) Muscle weakness Osteomyelitis (HCC) Osteomyelitis (HCC) 2019 RLE Other lack of coordination Other specified soft tissue disorders Other symbolic dysfunctions Schizophrenia (HCC) Sleep apnea no CPAP Venous insufficiency LABS: CBC: Recent Labs 10/18/24 1640 10/19/24 0343 WBC 25.9* 21.8* RBC 4.28 3.94 HGB 11.6* 10.9* HCT 36.8 34.4 MCV 86.0 87.3 RDW 14.5 14.5 PLT 373 339 BMP: Recent Labs 10/18/24 1640 10/19/24 0343 NA 137 135* K 4.1 3.6 CL 103 102 CO2 21* 22 BUN 24* 32* CREATININE 1.16 1.15 GLUCOSE 226* 223* CALCIUM 9.0 8.9 ANIONGAP 13 11 LIVER PROFILE: Recent Labs 10/18/24 1640 10/19/24 0343 AST 50* 50* ALT 67 83 BILITOT 0.7 0.8 ALKPHOS 133 151 PROT 6.7 6.5 PT/INR: No results for input(s): "PROTIME", "INR" in the last 72 hours. CARDIAC ENZYMES: No results for input(s): "TROPONINI" in the last 72 hours. Procalcitonin: No results found for: "PROCAL" COVID-19 PCR: No results for input(s): "COVID19" in the last 72 hours. Objective: Vitals: BP 149/89 (BP Location: Right arm) Pulse 98 Temp 36.7 C (98 F) (Temporal) Resp 24 Ht 5' 6" (1.676 m) Wt (!) 320 lb (145 kg) SpO2 93% BMI 51.65 kg/m Pulse Ox: SpO2 Av.9 % Min: 90 % Max: 96 % Supplemental O2: O2 Flow Rate (L/min): 2 L/min Physical Exam Constitutional: Appearance: He is obese. He is ill-appearing. Cardiovascular: Rate and Rhythm: Normal rate and regular rhythm. Pulses: Normal pulses. Heart sounds: Normal heart sounds. Pulmonary: Effort: Pulmonary effort is normal. Breath sounds: Normal breath sounds. Abdominal: Comments: Tenderness right upper quadrant, appear distended, soft, BS+ Musculoskeletal: Comments: Right AKA Neurological: General: No focal deficit present. Mental Status: He is alert. Medications: Scheduled PRN amLODIPine, 10 mg, Oral, Daily ARIPiprazole, 10 mg, Oral, Daily aspirin, 81 mg, Oral, Daily atorvastatin, 10 mg, Oral, Daily carvedilol, 25 mg, Oral, BID WC ferrous sulfate, 325 mg, Oral, Daily with breakfast FLUoxetine, 40 mg, Oral, Daily gabapentin, 100 mg, Oral, BID hydrALAZINE, 25 mg, Oral, TID influenza, 0.5 mL, IntraMUSCular, Prior to discharge insulin glargine, 45 Units, SubCUTAneous, BID insulin lispro, 0-12 Units, SubCUTAneous, 4x daily AC & HS magnesium hydroxide, 30 mL, Oral, Nightly metoclopramide, 10 mg, Oral, 4x daily AC & HS pantoprazole (ProtoNix) 40 mg in sodium chloride (PF) 0.9 % 10 mL injection, 40 mg, IntraVENous, BID piperacillin-tazobactam, 3,375 mg, IntraVENous, q8h sodium chloride 0.9%, 10 mL, IntraVENous, 2 times per day torsemide, 10 mg, Oral, Daily PRN medications: acetaminophen OR acetaminophen, bisacodyl, dextrose, dextrose, glucagon (rDNA), glucose, ipratropium-albuterol, Melatonin, ondansetron ODT OR ondansetron, sodium chloride, sodium chloride 0.9% Continuous Assessment Data: (CAT1) Reviewed 1 notes from different specialty or health system (each=1). (LOW: 2x CAT1 or independent historian MOD: 3x CAT1 or 1x CAT3 EXTENSIVE: 3x CAT1 and 1x CAT3) Acute, acute on chronic, unstable/uncontrolled chronic problems/diagnoses: Acute cholecystitis - USG( cholestasis, cholelithiasis, GB wall thickening with probable mural edema and trace pericholecystic collection). CT - distended GB. Surgery consulted. On zosyn. Possible CT guided drain placement. Leucocytosis /simple sepsis DM with hyperglycemia Mild hyponatremia Obesity Schizophrenia /mood disorder Stable chronic problems affecting care, new non-acute diagnoses: Morbid obesity Type 2 diabetes Depression Bipolar disorder History of osteomyelitis of right lower extremity with right above-knee amputation Schizophrenia Obstructive sleep apnea Lymphedema HTN HLP Plan As a result of the above findings & factors, the following mgmt was pursued: - NPO until evaluation by surgery - gentle hydration - hold reglan , torsemide - GI consult appreciated. Iron studies in am - continue with zosyn - consult ID and endocrinology - labs in am - am labs, replace lytes prn - PT/OT/CM/SW - delirium precautions: increase activity - DVT prophylaxis: enoxaparin and encourage ambulation Advance Directive: DNR-CCA Anticipated Discharge Extended Emergency Contact Information Primary Emergency Contact: Jovana Quesada (POA) Relation: Ambrosio Secondary Emergency Contact: Carola Lubin Mobile Relation: Other Álvaro Thomas MD Division of Hospitalist Medicine Acute [facility] Images from the original note were not included. PHYSICAL THERAPY [facility] Name/MRN: Maria Luisa Jacinto ([id number]) Date: 10/19/2024 PT evaluation orders received and chart review completed. 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 Per documentation this admission and on previous admissions, this patient is non-ambulatory, requires a deedee lift for transfers to a w/c at baseline and does not complete bed mobility. No acute PT needs identified. Rec return to ECF at discharge. Sandra De Guzman, PT documented in this encounter [facility] 10-23-2024 Note Formatting of this n ote might be different from the original. DC orders in and signed by Dr. Thomas. [facility] set up transport. WIRE STITCHER OPERATOR tasked in [facility] to send DC info [facility] . DC back to ECF in stable condition. . [facility] 10-23-2024 Note Formatting of this n ote might be different from the original. DC orders in and signed by Dr. Thomas. [facility] set up transport. WIRE STITCHER OPERATOR tasked in [facility] . DC back to [facility] in stable condition. . [facility] 10-23-2024 Note [facility] 10-23-2024 Hospital course Narrative Discharge Summary Will Jacinto : 1965 ADMIT DATE: 10/18/2024 DISCHARGE DATE: 10/23/2024 PRIMARY CARE PHYSICIAN: Jared Guzman VISIT STATUS: Admission CODE STATUS: DNR-CCA DISCHARGE DIAGNOSES: Principal Problem: Acute cholecystitis Acute, acute on chronic, unstable/uncontrolled chronic problems/diagnoses: Acute cholecystitis - USG( cholestasis, cholelithiasis, GB wall thickening with probable mural edema and trace pericholecystic collection). CT - distended GB. Surgery consulted. On zosyn. USG guided cholecystomy tube placement on 10/19 Severe sepsis, POA , due to above . Improved. Leucocytosis- improved DM with hyperglycemia - endocrinology consulted. Insulin adjusted. Follow up with endocrinology as an outpatient. Mild hyponatremia - improved Obesity Schizophrenia /mood disorder Mild renal insuffiencey - improved Positive fecal occult blood with anemia - H/H stable. No overt bleeding. GI consulted. Follow up with GI as an outpatient for further workup once acute sepsis/infection resolves. Stable chronic problems affecting care, new non-acute diagnoses: Morbid obesity Depression Bipolar disorder History of osteomyelitis of right lower extremity with right above-knee amputation Schizophrenia Obstructive sleep apnea Lymphedema HTN HLP Diabetic neuropathy HOSPITAL COURSE: Details as above. Admitted for sepsis secondary to acuate cholecystitis. CT and USG findings as below. Surgery and ID consulted. Patient underwent USG guided cholecystostomy tube placement . Was placed on zosyn and improved. DC on Augmentin to complete the course. Would follow up with surgery, PCP and GI as an outpatient. SIGNIFICANT DIAGNOSTIC STUDIES: USG guided cholecystostomy tube : Ultrasound-guided gallbladder drainage catheter placement The benefits and risks of the procedure were discussed with the patient. The patient agreed to proceed. Conscious Sedation: An independent trained nurse under my supervision monitored the patient during the procedure and administered 1 mg of Versed and 50 ug of Fentanyl intravenously. The monitoring time was 30 minutes. Sterile technique was utilized. The skin was cleaned with 2% chlorhexidine. Sterile drapes were placed. I washed my hands prior to the procedure. I wore a cap, mask, sterile gown and sterile gloves during the procedure. Lidocaine was applied for local anesthesia. Using ultrasound guidance, 18-gauge needle was inserted from an anterior approach into the gallbladder. Bile was aspirated. A specimen was submitted for Gram stain and culture. Wire was advanced. Subcutaneous tract was dilated. An 8 [place] drainage catheter advanced over the wire. The catheter was attached to a bag. A dressing was applied. Impression: Successful placement of a drainage catheter into the gallbladder using ultrasound guidance. USG abdomen: FINDINGS: Gallbladder distended and contains sludge and shadowing calculi. Gallbladder wall thickened measuring up to 6 mm, with probable mural edema and trace pericholecystic fluid Intra-and extrahepatic bile ducts are of normal caliber. Positive sonographic [place]'s sign. Liver suboptimally visualized without focal abnormalities. Right kidney measures 12.8 cm in longest dimension. Approximately 1 cm, hyperechoic and nonshadowing focus in the lower pole region not appreciated on comparison CT. No significant hydronephrosis. Pancreas not adequately visualized due to overlying bowel gas. Impression: 1. Cholestasis, cholelithiasis, gallbladder wall thickening, with probable mural edema and trace pericholecystic fluid, as well as positive sonographic [place]'s sign, suspicious for postinflammatory change, including acute cholecystitis. Clinical correlation and follow-up as indicated. CT abdomen with contrast: FINDINGS: Unenhanced abdomen pelvis with 75 mL Isovue-370 performed. Dose reduction and automated exposure control utilized. No free air. Distended stomach with air-fluid level. Bowel otherwise nondistended. Limited bowel assessment, lack of oral contrast. No convincing pneumatosis or abscess. Appendix not confidently seen. The gallbladder appears markedly distended with some suspected wall edema within limits of the study including artifact from motion, crisscross artifact. No convincing active disease of liver, the pancreas, spleen kidneys, adrenals, urinary bladder. No adenopathy. No definite aneurysm. No spinal compression. Impression: Distended gallbladder with suspected gallbladder wall edema concerning for acute cholecystitis. Distended stomach with air-fluid level may be related. Please correlate clinically. Follow-up recommended. CTR Dr Woodall. CT chest: Exam is very limited due to severe motion artifact. Airway:Grossly patent. Mediastinum and great vessels: Limited due to motion. No large central PE visualized. Coronary arteries:No significant calcification. .No convincing emergent adenopathy within limits of the study. LUNGS:No convincing major volume loss. Very limited. Stable nodule right lung approximately 8mm; limited assessment due to artifact. Spine: No convincing acute or occult process.. Upper abdomen: Distended stomach with air-fluid level. Significance uncertain.. Impression: Impression:Very limited due to motion.. Consider repeat exam or VQ scan for persistent symptoms. Note made of distended stomach with air-fluid level. CONSULTANTS: Surgery, ID RECOMMENDED NEXT STEPS: Follow up with surgery, PCP , GI as an outpatient. Exam: BP 127/54 (BP Location: Right arm, Patient Position: Lying) Pulse 85 Temp 36.5 C (97.7 F) (Temporal) Resp 20 Ht 5' 6" (1.676 m) Wt (!) 320 lb (145 kg) SpO2 97% BMI 51.65 kg/m General: alert, awake , obese Chest: b/l equal air entry, no added sound . Decreased breath sound on lung bases. CVS: S 1 S2 Mo PA: soft, NT, BS+ Ext: right AKA, edema left leg. DISCHARGE MEDICATIONS: Medication List START taking these medications amoxicillin-clavulanate 875-125 MG tablet Commonly known as: Augmentin Take 1 tablet by mouth 2 times daily for 6 days. CHANGE how you take these medications HumuLIN R 500 UNIT/ML CONCENTRATED injection Generic drug: insulin regular What changed: Another medication with the same name was removed. Continue taking this medication, and follow the directions you see here. CONTINUE taking these medications amLODIPine 10 MG tablet Commonly known as: Norvasc Take 1 tablet (10 mg) by mouth daily. ARIPiprazole 10 MG tablet Commonly known as: Abilify aspirin 81 MG EC tablet atorvastatin 10 MG tablet Commonly known as: Lipitor bisacodyl 5 MG EC tablet Commonly known as: Dulcolax carvedilol 25 MG tablet Commonly known as: Coreg Take 1 tablet (25 mg) by mouth in the morning and 1 tablet (25 mg) in the evening. Take with meals. ferrous sulfate 325 (65 Fe) MG tablet Take 1 tablet (325 mg) by mouth daily (with breakfast). FLUoxetine 40 MG capsule Commonly known as: PROzac gabapentin 100 MG capsule Commonly known as: Neurontin hydrALAZINE 25 MG tablet Commonly known as: Apresoline insulin glargine 100 UNIT/ML injection Commonly known as: Lantus magnesium hydroxide 400 MG/5ML suspension Commonly known as: Milk of Magnesia melatonin 10 MG tablet metoclopramide 10 MG tablet Commonly known as: Reglan Take 1 tablet (10 mg) by mouth 4 times daily (before meals and nightly). multivitamin capsule pantoprazole 40 MG EC tablet Commonly known as: ProtoNix polyethylene glycol (PEG) 3350 17 GM/SCOOP powder Commonly known as: Glycolax torsemide 10 MG tablet Commonly known as: Demadex Take 1 tablet (10 mg) by mouth daily. STOP taking these medications lisinopril 40 MG tablet megestrol 20 MG tablet Commonly known as: Megace Where to Get Your Medications These medications were sent to [facility] [address] [place] [id number] Hours: Wednesday to Wednesday 10 am to 6 pm amoxicillin-clavulanate 875-125 MG tablet DIET: Adult diet Regular; 4 carb choices (60 gm/meal); Low Fat (less than or equal to 50 gm/day); Low Fiber ACTIVITY: No restriction. COMPLEXITY OF FOLLOW UP: [x] Moderate Complexity: follow up within 7-14 calendar days (31483) [] Severe Complexity: follow up within 7 calendar days (17003) FOLLOW UP TESTING, PENDING RESULTS OR REFERRALS AT TRANSITIONAL CARE VISIT: [x] Yes [] No PENDING STUDIES: DISPOSITION: Skilled Facility FACILITY/HOME CARE AGENCY NAME[facility] [address] [facility] [address] Schedule an appointment as soon as possible for a visit in 1 month(s) Drain follow up Jared Guzman [address] [facility] [address] [facility] [address] Follow up in 1 week(s) [facility] [place] [address] [facility] [address] Follow up for positive occult blood stool on INSTRUCTIONS TO MA/SW: Please call patient on day after discharge (must document patient contacted within 2 business days of discharge). FOLLOW UP QUESTIONS FOR MA/SW: 1. Did you get medications filled and taking them as instructed from discharge? 2. Are you following your discharge instructions from your hospital stay? 3. Please confirm patient is scheduled for a follow up appointment within the above time frame. DISCHARGE TIME: 40 min SIGNED: Álvaro Thomas MD 10/23/2024, 11:26 AM documented in this encounter [facility] 10-23-2024 Hospital Discharg e instructions Álvaro Thomas MD - 10/23/2024 11:08 AM EST Follow up with PCP and general surgery . CBC/BMP on follow up with PCP. Ezio Dunlap RN - 10/21/2024 2:32 PM EST Images from the original note were not included. Continuity of Care Form Patient Name: Will Jacinto : 1965 Admit date: 10/18/2024 Discharge date: 10/23/2024 Code Status Order: DNR-CCA Advance Directives: N Admitting Physician: Álvaro Thomas MD PCP: Jared Guzman Discharging Nurse: Ezio Dunlap RN Discharging Hospital Unit/Room#: B4-464/B4-464 A Discharging Unit Emergency Contact: Extended Emergency Contact Information Primary Emergency Contact: Tammy Quesada (POA)h Relation: Niece Secondary Emergency Contact: Carola Lubin Mobile Relation: Other Past Surgical History: Past Surgical History: Procedure Laterality Date ABCESS DRAINAGE Right 09/09/2018 FOOT; [facility] COLONOSCOPY 09/19/[address] Hyde DILATION AND CURETTAGE OF UTERUS 05/18/2019 HYSTEROSCOPY 12/23/2021 LEG AMPUTATION THROUGH KNEE Right 06/16/2019 UPPER GASTROINTESTINAL ENDOSCOPY N/A 06/29/2023 Dr Sergio Sibley at [facility]; no specimens WISDOM TOOTH EXTRACTION Immunization History: Immunization History Administered Date(s) Administered Covid-19, Pfizer Cazares Top, Do Not Dilute, (Age 12 Y+), Im, L 02/26/2022 Influenza, injectable, quadrivalent, preservative free 01/14/2019, 08/12/2021 Pfizer SARS-CoV-2 Vaccination 11/13/2020, 12/04/2020, 08/28/2021 Active Problems: Medical Problems Problem List * (Principal) Acute cholecystitis Hypertension Chest pain Chest pain, unspecified type Upper abdominal pain Abdominal pain Hypoglycemia due to insulin Hypothermia, not associated with low environmental temperature Acinetobacter lwoffi infection Bacteremia due to Gram-negative bacteria Sepsis without acute organ dysfunction (HCC) NOY (acute kidney injury) (HCC) Endometrial carcinoma (HCC) Endometrial hyperplasia Diabetic hyperosmolar non-ketotic state (CMS/HCC) (HCC) Thickened endometrium Ileus (CMS/HCC) (HCC) Complex endometrial hyperplasia with atypia Diabetic gastroparesis associated with type 2 diabetes mellitus (CMS/HCC) (HCC) (Chronic) Esophagitis Nausea and vomiting Hyperlipidemia Cellulitis and abscess of lower extremity Chronic acquired lymphedema Cellulitis Hyperandrogenism Chronic osteomyelitis (CMS/HCC) (HCC) 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 (HCC) Type 2 diabetes mellitus with hyperglycemia, with long-term current use of insulin (HCC) (Chronic) Hyperglycemia Post-menopausal bleeding Left leg cellulitis Diabetic foot infection (HCC) S/P AKA (above knee amputation) unilateral, right (HCC) Class 3 severe obesity due to excess calories with serious comorbidity and body mass index (BMI) of 60.0 to 69.9 in adult (HCC) (Chronic) Isolation/Infection: No active isolations No active infections Nurse Assessment: Last Vital Signs: BP (!) 178/86 (BP Location: Right arm, Patient Position: Lying) Pulse 86 Temp 36.6 C (97.8 F) (Temporal) Resp 14 Ht 1.676 m (5' 6") Wt (!) 145 kg (320 lb) SpO2 95% BMI 51.65 kg/m Last documented pain score (0-10 scale): Last Weight: Wt Readings from Last 1 Encounters: 10/18/24 (!) 145 kg (320 lb) Mental Status: CHRISTY Patient Mental Status: oriented and alert IV Access: CHRISTY IV Access: None Nursing Mobility/ADLs: Walking Total assistance Transfer Total assistance Bathing Total assistance Dressing Total assistance Toileting Total assistance Feeding Total assistance Structural Iron Erector Total assistance Med Delivery yes Wound Care Documentation and Therapy: Elimination: Continence: Bowel: no Bladder: no Urinary Catheter: None Colostomy/Ileostomy/Ileal Conduit: None Date of Last BM: 10/23/2024 Intake/Output Summary (Last 24 hours) at 10/21/2024 1431 Last data filed at 10/21/2024 1318 Gross per 24 hour Intake -- Output 125 ml Net -125 ml I/O last 3 completed shifts: In: 600 (4.1 mL/kg) [P.O.:600] Out: 30 (0.2 mL/kg) [Drains:30] Weight: 145.1 kg Safety Concerns: at risk for falls Impairments/Disabilities: none and amputation - r aka Nutrition Therapy: Current Nutrition Therapy: Oral diet: carb control 4 carbs/meal (1800kcals/day) Routes of Feeding: oral Liquids: no restrictions Daily Fluid Restriction: no Last Modified Barium Swallow with Video (Video Swallowing Test): not done Treatments at the Time of Hospital Discharge: Respiratory Treatments: Oxygen Therapy: is not on home oxygen therapy. Ventilator: No ventilator support Rehab Therapies: physical therapy and occupational therapy Weight Bearing Status/Restrictions: no restriction Other Medical Equipment (for information only, NOT a DME order): none Other Treatments: Patient's personal belongings (please select all that are sent with patient): RN SIGNATURE: MANAGEMENT/SOCIAL WORK SECTION Inpatient Status Date: [facility]charg[facility] Address:[address] [place] [address] Dialysis Facility (if applicable) Name: Address: Dialysis Schedule: Phone: Fax: Education Consultant/Frame Bender signature: ICIAN SECTION Name: Will Jacinto Prognosis: fair Condition at Discharge: stable Rehab Potential (if transferring to Rehab): fair Recommended Labs or Other Treatments After Discharge: CBC/CMP in 3 days and in 1 week Follow up with surgery as scheduled. The individual is being admitted to a nursing facility directly from an [facility] or a unit of a [facility] hospital that is not operated by or licensed by [facility] under section 5119.14 or 5160-3-15.1 5 The individual requires the level of services provided by a nursing facility for the condition for which he or she was treated in the hospital and, Physician Certification: I certify the above information and transfer of Will Jacinto is necessary for the continuing treatment of the diagnosis listed and that he requires custodial facility for less than 30 days. Update Admission H&P: No change in H&P PHYSICIAN SIGNATURE: documented in this encounter [facility] 10-22-2024 Plan of care note Problem: Knowledge Deficit Goal: Patient/family/caregiver demonstrates understanding of disease process, treatment plan, medications, and discharge instructions Outcome: Progressing Problem: Potential for Compromised Skin Integrity Goal: Skin Integrity is Maintained or Improved Outcome: Progressing [facility] 10-22-2024 Plan of care note Problem: Knowledge Deficit Goal: Patient/family/caregiver demonstrates understanding of disease process, treatment plan, medications, and discharge instructions Outcome: Progressing Problem: Potential for Compromised Skin Integrity Goal: Skin Integrity is Maintained or Improved Outcome: Progressing [facility] 10-21-2024 Note Formatting of this n ote might be different from the original. Did update [facility] via [facility] that attending would like patient to return to their facility tomorrow on po antibiotics. Will have TCC coverage for tomorrow follow for reply. Patient is senior living at the facility and does not need auth to return. [facility] 10-21-2024 Note Formatting of this n ote might be different from the original. Did [facility] attending would like patient to return to their facility tomorrow on po antibiotics. Will have TCC coverage for tomorrow follow for reply. Patient is senior living at the facility and does not need auth to return. [facility] 10-20-2024 Nurse Note Report called to [address] [place] [address] for transfer. [facility] 10-20-2024 Consult note Associated Order (s): IP WOUND CARE NURSE CONSULT TO EVAL [facility] Wound Care Prevention CONSULT Note Will Jacinto AGE: 58 y.o. GENDER: adult : 1965 Subjective: HISTORY of PRESENT ILLNESS HPI Will Jacinto is a 58 y.o. adult who presents for a wound care prevention consult. History of Wound Context: patient states he is nauseated not vomiting, tamara score is 16 , no current pressure injury noted. Turned with turn wedges , TAP system for bed mobility . +incont. At times. Of bowel and bladder he states he doesn't get help in time, resides in ECF. +skin sweats a lot requires daily baths. +MASD on posterior thigh mostly left , states he is getting barrier cream to that wants something for pain relief will write for calmoseptine. Folds get rashes from moisture mostly under upper body skin folds. No open draining areas. PAST MEDICAL HISTORY Past Medical History: Diagnosis Date Abnormal uterine bleeding (AUB) SCHEDULED FOR THE SURGERY ON 05/16/2019 Above knee amputation of right lower extremity ([facility] Acquired absence of other toe(s), unspecified side ([facility]) Anxiety disorder Bipolar 1 disorder ([facility]) Blood circulation, collateral Cellulitis chronic L lower leg COVID 12/08/2021 Depression Diabetes mellitus ([facility]) Type II, on insulin Disease of blood and blood forming organ Endometrial carcinoma ([facility]) 11/25/2020 Endometrial hyperplasia Foot ulcer ([facility]) Hx of blood clots RLE prior to amputation Hyperlipidemia Hypertension Lymphedema 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, RLE Morbidly obese ([facility]) Muscle weakness Osteomyelitis ([facility]) Osteomyelitis ([facility]) 2019 RLE Other lack of coordination Other specified soft tissue disorders Other symbolic dysfunctions Schizophrenia ([facility]) Sleep apnea no CPAP Venous insufficiency PAST SURGICAL HISTORY Past Surgical History: Procedure Laterality Date ABCESS DRAINAGE Right 09/09/2018 FOOT; [facility] COLONOSCOPY 09/19/[address] Hyde DILATION AND CURETTAGE OF UTERUS 05/18/2019 HYSTEROSCOPY 12/23/2021 LEG AMPUTATION THROUGH KNEE Right 06/16/2019 UPPER GASTROINTESTINAL ENDOSCOPY N/A 06/29/2023 Dr Sergio Sibely at [facility]; no specimens WISDOM TOOTH EXTRACTION FAMILY HISTORY Family History Problem Relation Name Age of Onset No Known Problems Mother No Known Problems Father SOCIAL HISTORY Social History Tobacco Use Smoking status: Never Smokeless tobacco: Never Vaping Use Vaping status: Never Used Substance Use Topics Alcohol use: No Drug use: Never ALLERGIES No Known Allergies MEDICATIONS No current facility-administered medications on file prior to encounter. Current Outpatient Medications on File Prior to Encounter Medication Sig Dispense Refill amLODIPine (Norvasc) 10 MG tablet Take 1 tablet (10 mg) by mouth daily. ARIPiprazole (Abilify) 10 MG tablet Every 24 hours. aspirin 81 MG EC tablet Take 1 tablet by mouth daily. atorvastatin (Lipitor) 10 MG tablet Take 1 tablet by mouth daily. bisacodyl (Dulcolax) 5 MG EC tablet Take 5 mg by mouth 2 times daily as needed for constipation. Do not crush, chew, or split. carvedilol (Coreg) 25 MG tablet Take 1 tablet (25 mg) by mouth in the morning and 1 tablet (25 mg) in the evening. Take with meals. ferrous sulfate 325 (65 Fe) MG tablet Take 1 tablet (325 mg) by mouth daily (with breakfast). FLUoxetine (PROzac) 40 MG capsule Take 40 mg by mouth daily. gabapentin (Neurontin) 100 MG capsule Take 100 mg by mouth in the morning and 100 mg before bedtime. hydrALAZINE (Apresoline) 25 MG tablet Take 25 mg by mouth 3 times daily. insulin glargine (Lantus) 100 UNIT/ML injection Inject 47 Units under the skin 2 times daily. insulin regular (HumuLIN R U-500) 500 UNIT/ML CONCENTRATED injection Inject 90 Units under the skin daily (before lunch). insulin regular (HumuLIN R U-500) 500 UNIT/ML CONCENTRATED injection Inject 120 Units under the skin every morning (before breakfast). insulin regular (HumuLIN R U-500) 500 UNIT/ML CONCENTRATED injection Inject 100 Units under the skin daily (before dinner). insulin regular (HumuLIN R) 500 UNIT/ML CONCENTRATED injection Inject 130 Units under the skin 3 times daily. megestrol (Megace) 20 MG tablet Take 1 tablet by mouth in the morning and 1 tablet before bedtime. melatonin 10 MG tablet Take 10 mg by mouth Nightly as needed (insomnia). metoclopramide (Reglan) 10 MG tablet Take 1 tablet (10 mg) by mouth 4 times daily (before meals and nightly). Multiple Vitamin (multivitamin) capsule Take 1 capsule by mouth daily. pantoprazole (ProtoNix) 40 MG EC tablet Take 40 mg by mouth. polyethylene glycol, PEG, 3350 (Glycolax) 17 GM/SCOOP powder Take 17 g by mouth daily. torsemide (Demadex) 10 MG tablet Take 1 tablet (10 mg) by mouth daily. lisinopril 40 MG tablet Take 0.5 tablets (20 mg) by mouth daily. (Patient not taking: Reported on 02/11/2024) magnesium hydroxide (Milk of Magnesia) 400 MG/5ML suspension Take 30 mL by mouth Nightly. REVIEW OF SYSTEMS Pertinent items are noted in HPI. Objective: BP (!) 167/95 (BP Location: Right arm, Patient Position: Lying) Pulse 100 Temp 36.5 C (97.7 F) (Temporal) Resp 16 Ht 5' 6" (1.676 m) Wt (!) 320 lb (145 kg) SpO2 95% BMI 51.65 kg/m PHYSICAL EXAM General appearance: in no apparent distress, alert, oriented times 3, and cooperative Skin: warm and dry Pulmonary: Normal effort, no respiratory distress, no cyanosis and on 2 liters oxygen NC Abdomen: soft, nontender, and nondistended Extremities: edema left lower extremity Right AKA skin intact. LABS CBC: Lab Results Component Value Date WBC 13.4 (H) 10/20/2024 HGB 10.5 (L) 10/20/2024 HCT 33.0 10/20/2024 MCV 85.7 10/20/2024 PLT 353 10/20/2024 BMP: Lab Results Component Value Date NA 133 (L) 10/20/2024 K 3.6 10/20/2024 CL 98 10/20/2024 CO2 21 (L) 10/20/2024 BUN 48 (H) 10/20/2024 CREATININE 1.50 10/20/2024 PT/INR: Lab Results Component Value Date PROTIME 14.0 (H) 10/19/2024 INR 1.3 (H) 10/19/2024 Prealbumin: No results found for: "PREALBUMIN" Albumin:No components found for: LABALBU Sed Rate:No results found for: SEDRATE Micro: No components found for: BC Assessment/Plan: MASD - bilateral buttock, posterior thighs - calmoseptine ointment BID after hygiene Fungal- bilateral breast folds- miconazole powder to all skin folds BID after hygiene PREVENTION RECOMMENDATION: 1. Turn and reposition every 2 hours and PRN while in bed 2. Reposition every 1 hour while sitting up in chair. Limit time up in chair to 2 hour time intervals if patient is unable to reposition self. 3. Q2H incontinence checks 4. Monitor bony prominences for redness or skin breakdown 5. Change foam dressing for prevention applied to site/bony prominence every 7 days. Pull back foam dressing and reassess skin every shift. 6. Maintain head of bed at lowest elevation consistent with medical plan of care 7. Pressure redistribution mattress: P500, Envella, Total Care Bariatric 8. Pressure redistribution cushion: waffle cushion in bedside chair 9. Pressure redistribution boots: Heel Medix boots or pillows to offload heels at all times 10. Pad/offload medical devices 11. Nutritional support 12. Barrier cream 13. Cleanse skin with PH balanced cleanser 14. Moisturize skin as needed Any questions or concerns please vocera or secure chat "wound care". Thank you for the consult! I personally obtained the bunch and critical portions of the history and physical exam. I reviewed the labs, imaging studies, and electronic medical record. I reviewed the chart documentation and discussed the patient with treatment team members. I have edited the note to reflect my clinical findings and my assessment and plan. Please note, the time of this note does not reflect the time I saw this patient today, but the time of this documentaton. Portions of this note including HPI, ROS, impression/plan, and examination may have been copied forward from admission to today as to provide important historical information essential in contributing to medical decision making. Documentation has been reviewed and edited as necessary to support clinical decision making for today's visit and to reflect my own independent evaluation of this patient. Decision making for today's visit and to reflect my own independent evaluation of this patient. Cosigned by Amadou Geronimo DO at 10/23/2024 1:39 PM EST [facility] [employer] Work Phone: 10-20-2024 Consult note Associated Order (s): IP WOUND CARE NURSE CONSULT TO EVAL [facility] Wound Care Prevention CONSULT Note Will Chika Jacinto AGE: 58 y.o. GENDER: adult : 1965 Subjective: HISTORY of PRESENT ILLNESS HPI Will Jacinto is a 58 y.o. adult who presents for a wound care prevention consult. History of Wound Context: patient states he is nauseated not vomiting, tamara score is 16 , no current pressure injury noted. Turned with turn wedges , TAP system for bed mobility . +incont. At times. Of bowel and bladder he states he doesn't get help in time, resides in ECF. +skin sweats a lot requires daily baths. +MASD on posterior thigh mostly left , states he is getting barrier cream to that wants something for pain relief will write for calmoseptine. Folds get rashes from moisture mostly under upper body skin folds. No open draining areas. 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) Acquired absence of other toe(s), unspecified side ([facility]) Anxiety disorder Bipolar 1 disorder ([facility]) Blood circulation, collateral Cellulitis chronic L lower leg COVID 12/08/2021 Depression Diabetes mellitus ([facility]) Type II, on insulin Disease of blood and blood forming organ Endometrial carcinoma ([facility]) 11/25/2020 Endometrial hyperplasia Foot ulcer ([facility]) Hx of blood clots RLE prior to amputation Hyperlipidemia Hypertension Lymphedema 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, RLE Morbidly obese ([facility]) Muscle weakness Osteomyelitis ([facility]) Osteomyelitis ([facility]) 2019 RLE Other lack of coordination Other specified soft tissue disorders Other symbolic dysfunctions Schizophrenia ([facility]) Sleep apnea no CPAP Venous insufficiency PAST SURGICAL HISTORY Past Surgical History: Procedure Laterality Date ABCESS DRAINAGE Right 09/09/2018 FOOT; ACH COLONOSCOPY 09/19/[address] Hyde DILATION AND CURETTAGE OF UTERUS 05/18/2019 HYSTEROSCOPY 12/23/2021 LEG AMPUTATION THROUGH KNEE Right 06/16/2019 UPPER GASTROINTESTINAL ENDOSCOPY N/A 06/29/2023 Dr Sergio Sibley at [facility]; no specimens WISDOM TOOTH EXTRACTION FAMILY HISTORY Family History Problem Relation Name Age of Onset No Known Problems Mother No Known Problems Father SOCIAL HISTORY Social History Tobacco Use Smoking status: Never Smokeless tobacco: Never Vaping Use Vaping status: Never Used Substance Use Topics Alcohol use: No Drug use: Never ALLERGIES No Known Allergies MEDICATIONS No current facility-administered medications on file prior to encounter. Current Outpatient Medications on File Prior to Encounter Medication Sig Dispense Refill amLODIPine (Norvasc) 10 MG tablet Take 1 tablet (10 mg) by mouth daily. ARIPiprazole (Abilify) 10 MG tablet Every 24 hours. aspirin 81 MG EC tablet Take 1 tablet by mouth daily. atorvastatin (Lipitor) 10 MG tablet Take 1 tablet by mouth daily. bisacodyl (Dulcolax) 5 MG EC tablet Take 5 mg by mouth 2 times daily as needed for constipation. Do not crush, chew, or split. carvedilol (Coreg) 25 MG tablet Take 1 tablet (25 mg) by mouth in the morning and 1 tablet (25 mg) in the evening. Take with meals. ferrous sulfate 325 (65 Fe) MG tablet Take 1 tablet (325 mg) by mouth daily (with breakfast). FLUoxetine (PROzac) 40 MG capsule Take 40 mg by mouth daily. gabapentin (Neurontin) 100 MG capsule Take 100 mg by mouth in the morning and 100 mg before bedtime. hydrALAZINE (Apresoline) 25 MG tablet Take 25 mg by mouth 3 times daily. insulin glargine (Lantus) 100 UNIT/ML injection Inject 47 Units under the skin 2 times daily. insulin regular (HumuLIN R U-500) 500 UNIT/ML CONCENTRATED injection Inject 90 Units under the skin daily (before lunch). insulin regular (HumuLIN R U-500) 500 UNIT/ML CONCENTRATED injection Inject 120 Units under the skin every morning (before breakfast). insulin regular (HumuLIN R U-500) 500 UNIT/ML CONCENTRATED injection Inject 100 Units under the skin daily (before dinner). insulin regular (HumuLIN R) 500 UNIT/ML CONCENTRATED injection Inject 130 Units under the skin 3 times daily. megestrol (Megace) 20 MG tablet Take 1 tablet by mouth in the morning and 1 tablet before bedtime. melatonin 10 MG tablet Take 10 mg by mouth Nightly as needed (insomnia). metoclopramide (Reglan) 10 MG tablet Take 1 tablet (10 mg) by mouth 4 times daily (before meals and nightly). Multiple Vitamin (multivitamin) capsule Take 1 capsule by mouth daily. pantoprazole (ProtoNix) 40 MG EC tablet Take 40 mg by mouth. polyethylene glycol, PEG, 3350 (Glycolax) 17 GM/SCOOP powder Take 17 g by mouth daily. torsemide (Demadex) 10 MG tablet Take 1 tablet (10 mg) by mouth daily. lisinopril 40 MG tablet Take 0.5 tablets (20 mg) by mouth daily. (Patient not taking: Reported on 02/11/2024) magnesium hydroxide (Milk of Magnesia) 400 MG/5ML suspension Take 30 mL by mouth Nightly. REVIEW OF SYSTEMS Pertinent items are noted in HPI. Objective: BP (!) 167/95 (BP Location: Right arm, Patient Position: Lying) Pulse 100 Temp 36.5 C (97.7 F) (Temporal) Resp 16 Ht 5' 6" (1.676 m) Wt (!) 320 lb (145 kg) SpO2 95% BMI 51.65 kg/m PHYSICAL EXAM General appearance: in no apparent distress, alert, oriented times 3, and cooperative Skin: warm and dry Pulmonary: Normal effort, no respiratory distress, no cyanosis and on 2 liters oxygen NC Abdomen: soft, nontender, and nondistended Extremities: edema left lower extremity Right AKA skin intact. LABS CBC: Lab Results Component Value Date WBC 13.4 (H) 10/20/2024 HGB 10.5 (L) 10/20/2024 HCT 33.0 10/20/2024 MCV 85.7 10/20/2024 PLT 353 10/20/2024 BMP: Lab Results Component Value Date NA 133 (L) 10/20/2024 K 3.6 10/20/2024 CL 98 10/20/2024 CO2 21 (L) 10/20/2024 BUN 48 (H) 10/20/2024 CREATININE 1.50 10/20/2024 PT/INR: Lab Results Component Value Date PROTIME 14.0 (H) 10/19/2024 INR 1.3 (H) 10/19/2024 Prealbumin: No results found for: "PREALBUMIN" Albumin:No components found for: LABALBU Sed Rate:No results found for: SEDRATE Micro: No components found for: BC Assessment/Plan: MASD - bilateral buttock, posterior thighs - calmoseptine ointment BID after hygiene Fungal- bilateral breast folds- miconazole powder to all skin folds BID after hygiene PREVENTION RECOMMENDATION: 1. Turn and reposition every 2 hours and PRN while in bed 2. Reposition every 1 hour while sitting up in chair. Limit time up in chair to 2 hour time intervals if patient is unable to reposition self. 3. Q2H incontinence checks 4. Monitor bony prominences for redness or skin breakdown 5. Change foam dressing for prevention applied to site/bony prominence every 7 days. Pull back foam dressing and reassess skin every shift. 6. Maintain head of bed at lowest elevation consistent with medical plan of care 7. Pressure redistribution mattress: P500, Envella, Total Care Bariatric 8. Pressure redistribution cushion: waffle cushion in bedside chair 9. Pressure redistribution boots: Heel Medix boots or pillows to offload heels at all times 10. Pad/offload medical devices 11. Nutritional support 12. Barrier cream 13. Cleanse skin with PH balanced cleanser 14. Moisturize skin as needed Any questions or concerns please vocera or secure chat "wound care". Thank you for the consult! I personally obtained the bunch and critical portions of the history and physical exam. I reviewed the labs, imaging studies, and electronic medical record. I reviewed the chart documentation and discussed the patient with treatment team members. I have edited the note to reflect my clinical findings and my assessment and plan. Please note, the time of this note does not reflect the time I saw this patient today, but the time of this documentaton. Portions of this note including HPI, ROS, impression/plan, and examination may have been copied forward from admission to today as to provide important historical information essential in contributing to medical decision making. Documentation has been reviewed and edited as necessary to support clinical decision making for today's visit and to reflect my own independent evaluation of this patient. Decision making for today's visit and to reflect my own independent evaluation of this patient. Cosigned by Amadou Geronimo DO at 10/23/2024 1:39 PM EST Associated Order(s): IP CONSULT TO ENDOCRINOLOGY Department of Internal Medicine Division of Endocrinology, Diabetes, & Metabolism Endocrinology Note Patient Name: Will Jacinto : 1965 AGE: 58 y.o. Room/Bed: B2-254/B2-254 A Admission Date: 10/18/2024 Visit Date: 10/19/2024 Reason for Endocrine Consult: IDDM on u500 Provider/Team Requesting Consult: Shawna Estrada PCP: Jared Guzman Outpt District Sales Coordinator: Yes - Dr Lee- VV 10/27/2023 ASSESSMENT: DM 2 with hyperglycemia Insulin resistance Acute Cholecyctitis Abdominal pain PLAN: Initiate u500 insulin 65 units with meals Increase humalog to 44 units BID One time lantus 50 units dose insulin given this afternoon as glucose levels have been increasing all day and he is is now eating Initiate regular insulin high dose sliding scale ICU goal <180 GMF goal <150 POCT BG ACHS Hypoglycemia management per protocol Carb controlled diet ANTICIPATED ENDOCRINE HOME GOING RECOMMENDATIONS: Optimized for Discharge from Endocrine standpoint: Yes Home Going Endocrine Rx Recommendations-- Return to u500 130 units 3 times day with meals Return to lantus 47 units bid Outpt Follow Up-- Dr lee or [employer] as available - message sent SUBJECTIVE/HPI: CHIEF COMPLAINT: Chief Complaint Patient presents with Abdominal Pain Pt presents to er from [facility]. Pt presents with abd pain, diarrhea, chest pain. Pt presents aox4 speaking in full and complete sentences. Chest Pain Nausea Presented to ED after abdominal pain that started on Wednesday evening (10/17/2024) Found to have Acute Cholecyctitis that needs to be managed medically, patient is on u500 units at [facility] Type of DM: 2 Onset of DM: unsure Home DM Medication Regimen: u500 per pen 130 units tidac, Lantus 47 units bid DM control (last A1c/glucose data): Lab Results Component Value Date HGBA1C 6.9 (H) 10/19/2024 Has been in ECF since 2017, Staff manages his glucose levels with finger sticks Staff administers his u500 insulin He received insulin from pens He eats 3 meals daily He does not exercise 10/19/2024- Glucose levels as below He has been cleared for liquid diety and tolerated withput any problems Has been nauseated but since he ate this has been relieved, Pain is controlled Drain to abdomen Glucose Date/Time Value Ref Range Status 10/19/2024 11:56 AM 336 (H) 70 - 100 mg/dL Final 10/19/2024 07:36 AM 299 (H) 70 - 100 mg/dL Final 10/19/2024 03:36 AM 207 (H) 70 - 100 mg/dL Final 10/18/2024 10:21 PM 136 (H) 70 - 100 mg/dL Final 01/27/2024 06:44 PM 143 (H) 70 - 100 mg/dL Final 01/26/2024 10:06 PM 101 (H) 70 - 100 mg/dL Final Review of Systems Constitutional: Negative for activity change, appetite change and unexpected weight change. Gastrointestinal: Negative for diarrhea, nausea and vomiting. Endocrine: Negative for polydipsia, polyphagia and polyuria. Genitourinary: Negative for dysuria. Skin: Negative for color change, pallor and wound. ROS negative except for those mentioned in HPI. OBJECTIVE: Vitals: 10/18/24 2104 10/19/24 0334 10/19/24 1335 10/19/24 1358 BP: 114/66 149/89 140/83 138/79 BP Location: Right arm Right arm Patient Position: Lying Pulse: 94 98 103 102 Resp: 24 Temp: 36.7 C (98 F) TempSrc: Temporal SpO2: 96% 93% 99% 98% Weight: (!) 320 lb (145 kg) Height: 5' 6" (1.676 m) Physical Exam Vitals reviewed. Constitutional: General: He is not in acute distress. Appearance: Normal appearance. He is obese. He is ill-appearing. HENT: Head: Normocephalic and atraumatic. Left Ear: External ear normal. Nose: Nose normal. Mouth/Throat: Mouth: Mucous membranes are moist. Cardiovascular: Rate and Rhythm: Normal rate and regular rhythm. Pulses: Normal pulses. Pulmonary: Effort: Pulmonary effort is normal. No respiratory distress. Musculoskeletal: General: Normal range of motion. Skin: General: Skin is warm and dry. Neurological: General: No focal deficit present. Mental Status: He is alert. Psychiatric: Mood and Affect: Mood normal. Behavior: Behavior normal. 24 hour intake/output: Intake/Output Summary (Last 24 hours) at 10/19/2024 1402 Last data filed at 10/18/20242103 Gross per 24 hour Intake 75 ml Output -- Net 75 ml Diet: NPO diet with enteral medications Medications (as per EMR): HomeMeds: Current Outpatient Medications Medication Instructions amLODIPine (NORVASC) 10 mg, Oral, Daily ARIPiprazole (Abilify) 10 MG tablet Every 24 hours aspirin 81 MG EC tablet 1 tablet, Daily atorvastatin (Lipitor) 10 MG tablet 1 tablet, Daily bisacodyl (DULCOLAX) 5 mg, 2 times daily PRN carvedilol (COREG) 25 mg, Oral, 2 times daily with meals ferrous sulfate 325 mg, Oral, Daily with breakfast FLUoxetine (PROZAC) 40 mg, Daily gabapentin (NEURONTIN) 100 mg, 2 times daily HumuLIN R 130 Units, 3 times daily hydrALAZINE (APRESOLINE) 25 mg, 3 times daily insulin glargine (LANTUS) 47 Units, 2 times daily insulin regular (HUMULIN R U-500) 90 Units, SubCUTAneous, Daily before lunch insulin regular (HUMULIN R U-500) 120 Units, SubCUTAneous, Daily before breakfast insulin regular (HUMULIN R U-500) 100 Units, SubCUTAneous, Daily before dinner lisinopril 20 mg, Oral, Daily magnesium hydroxide (Milk of Magnesia) 400 MG/5ML suspension 30 mL, Oral, Nightly megestrol (Megace) 20 MG tablet 1 tablet, 2 times daily melatonin 10 mg, Nightly PRN metoclopramide (REGLAN) 10 mg, Oral, 4 times daily before meals & nightly Multiple Vitamin (multivitamin) capsule 1 capsule, Daily pantoprazole (PROTONIX) 40 mg polyethylene glycol (PEG) 3350 (GLYCOLAX) 17 g, Daily torsemide (DEMADEX) 10 mg, Oral, Daily Scheduled Meds:amLODIPine, 10 mg, Oral, Daily ARIPiprazole, 10 mg, Oral, Daily aspirin, 81 mg, Oral, Daily atorvastatin, 10 mg, Oral, Daily carvedilol, 25 mg, Oral, BID WC ferrous sulfate, 325 mg, Oral, Daily with breakfast FLUoxetine, 40 mg, Oral, Daily gabapentin, 100 mg, Oral, BID hydrALAZINE, 25 mg, Oral, TID influenza, 0.5 mL, IntraMUSCular, Prior to discharge insulin glargine, 45 Units, SubCUTAneous, BID insulin lispro, 0-12 Units, SubCUTAneous, 4x daily AC & HS magnesium hydroxide, 30 mL, Oral, Nightly [Held by provider] metoclopramide, 10 mg, Oral, 4x daily AC & HS pantoprazole (ProtoNix) 40 mg in sodium chloride (PF) 0.9 % 10 mL injection, 40 mg, IntraVENous, BID piperacillin-tazobactam, 3,375 mg, IntraVENous, q8h sodium chloride 0.9%, 10 mL, IntraVENous, 2 times per day [Held by provider] torsemide, 10 mg, Oral, Daily Continuous Infusions:lactated Ringer's, 50 mL/hr, Last Rate: 50 mL/hr (10/19/24 1222) PRN Meds:PRN medications: acetaminophen OR acetaminophen, bisacodyl, dextrose, dextrose, fentaNYL, glucagon (rDNA), glucose, HYDROmorphone, ipratropium-albuterol, lidocaine PF, Melatonin, midazolam, naloxone, ondansetron ODT OR ondansetron, sodium chloride, sodium chloride 0.9% Diagnostic Workup: I reviewed pertinent Laboratory results, Radiographic results, and Other Clinical Notes at the time of today's encounter. Labs: No components found for: LABA1C No components found for: "EAG" Lab Results Component Value Date NA 135 (L) 10/19/2024 K 3.6 10/19/2024 CL 102 10/19/2024 CO2 22 10/19/2024 BUN 32 (H) 10/19/2024 CREATININE 1.15 10/19/2024 GLUCOSE 223 (H) 10/19/2024 CALCIUM 8.9 10/19/2024 Lab Results Component Value Date CHLPL 125 08/29/2020 Lab Results Component Value Date TRIG 190 08/29/2020 Lab Results Component Value Date HDL 31 (A) 08/29/2020 Lab Results Component Value Date LDLCALC 56 08/29/2020 Lab Results Component Value Date VLDL 38 08/29/2020 No results found for: CHOLHDLRATIO No results found for: [id number] Lab Results Component Value Date TSH 1.037 12/31/2023 Radiology reportsas per the Radiologist Radiology: POCT glucose meter Result Date: 10/19/2024 Performed by: [facility], [address] [place], [place] [address] [address] CLIA ID: [id number] POCT glucose meter Result Date: 10/19/2024 Performed by: [facility], [address] [facility] [address] CLIA ID: [id number] POCT glucose meter Result Date: 10/19/2024 Performed by: [facility], [address] [facility] [address] CLIA ID: [id number] ECG 12 lead Sinus rhythm Left ventricular hypertrophy Anterior Q waves, possibly due to LVH Electronically Signed On 10-18-2024 23:06:53 EST by Sunitha Borja POCT glucose meter Result Date: 10/18/2024 [facility]formed [facility]: [facility], [address] [place] [id number] CLIA ID: [id number] US abdomen limited Result Date: 10/18/2024 Patient Name: WILL JACINTO : 1965 Exam Date/Time: 10/18/2024 19:36 Procedure: US ABDOMEN LIMITED Ordering Provider: WOODALL FELIX Reason For Exam: possible acute cholecystitis ULTRASOUND OF RIGHT UPPER QUADRANT CLINICAL INDICATION: possible acute cholecystitis TECHNIQUE: Real-time ultrasound of the right upper quadrant of the abdomen. COMPARISON: Ultrasound abdomen Limited, October,; CT abdomen and pelvis, October,. FINDINGS: Gallbladder distended and contains sludge and shadowing calculi. Gallbladder wall thickened measuring up to 6 mm, with probable mural edema and trace pericholecystic fluid Intra-and extrahepatic bile ducts are of normal caliber. Positive sonographic Caldwell's sign. Liver suboptimally visualized without focal abnormalities. Right kidney measures 12.8 cm in longest dimension. Approximately 1 cm, hyperechoic and nonshadowing focus in the lower pole region not appreciated on comparison CT. No significant hydronephrosis. Pancreas not adequately visualized due to overlying bowel gas. 1. Cholestasis, cholelithiasis, gallbladder wall thickening, with probable mural edema and trace pericholecystic fluid, as well as positive sonographic Caldwell's sign, suspicious for postinflammatory change, including acute cholecystitis. Clinical correlation and follow-up as indicated. Report Dictated on Electronically Signed By: Joel Haddad MD Electronically Signed Date/Time: 10/18/2024 8:[address] abdomen pelvis w contrast Result Date: 10/18/2024 Patient Name: WILL JACINTO : 1965 Exam Date/Time: 10/18/2024 17:21 Procedure: CT ABDOMEN PELVIS W CONTRAST Ordering Provider: WOODALL FELIX Reason For Exam: Abdominal pain and distention with vomiting Indication: Abdominal pain vomiting. FINDINGS: Unenhanced abdomen pelvis with 75 mL Isovue-370 performed. Dose reduction and automated exposure control utilized. No free air. Distended stomach with air-fluid level. Bowel otherwise nondistended. Limited bowel assessment, lack of oral contrast. No convincing pneumatosis or abscess. Appendix not confidently seen. The gallbladder appears markedly distended with some suspected wall edema within limits of the study including artifact from motion, crisscross artifact. No convincing active disease of liver, the pancreas, spleen kidneys, adrenals, urinary bladder. No adenopathy. No definite aneurysm. No spinal compression. Distended gallbladder with suspected gallbladder wall edema concerning for acute cholecystitis. Distended stomach with air-fluid level may be related. Please correlate clinically. Follow-up recommended. CTR Dr Woodall. Report Dictated on Electronically Signed By: Javy Urias MD Electronically Signed Date/Time: 10/18/2024 7:[address] chest angiogram w and/or wo IV contrast Result Date: 10/18/2024 Patient Name: WILL JACINTO : 1965 Exam Date/Time: 10/18/2024 17:20 Procedure: CT CHEST ANGIOGRAM W AND/OR WO IV CONTRAST Ordering Provider: WOODALL FELIX Reason For Exam: Chest pain, shortness of breath, rule out pulmonary balloon History: Chest discomfort. Comparison: 06/28/2023 Findings: Dose reduction was employed with automated exposure control. Enhanced imaging of the chest was performed with 1 mm slices from neck to upper abdomen. 75 cc isovue 370 utilized. Additional images: 3-D imaging created and reviewed on independent platform for better detection of pathology. Exam is very limited due to severe motion artifact. Airway:Grossly patent. Mediastinum and great vessels: Limited due to motion. No large central PE visualized. Coronary arteries:No significant calcification. .No convincing emergent adenopathy within limits of the study. LUNGS:No convincing major volume loss. Very limited. Stable nodule right lung approximately 8mm; limited assessment due to artifact. Spine: No convincing acute or occult process.. Upper abdomen: Distended stomach with air-fluid level. Significance uncertain.. Impression:Very limited due to motion.. Consider repeat exam or VQ scan for persistent symptoms. Note made of distended stomach with air-fluid level. 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 other toe(s), unspecified side (HCC) Anxiety disorder Bipolar 1 disorder ([facility]) Blood circulation, collateral Cellulitis chronic L lower leg COVID 12/08/2021 Depression Diabetes mellitus ([facility]) Type II, on insulin Disease of blood and blood forming organ Endometrial carcinoma ([facility]) 11/25/2020 Endometrial hyperplasia Foot ulcer ([facility]) Hx of blood clots RLE prior to amputation Hyperlipidemia Hypertension Lymphedema 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, RLE Morbidly obese ([facility]) Muscle weakness Osteomyelitis (HCC) Osteomyelitis (HCC) 2019 RLE Other lack of coordination Other specified soft tissue disorders Other symbolic dysfunctions Schizophrenia ([facility]) Sleep apnea no CPAP Venous insufficiency Past Surgical History: Past Surgical History: Procedure Laterality Date ABCESS DRAINAGE Right 09/09/2018 FOOT; ACH COLONOSCOPY 09/19/[address] Hyde DILATION AND CURETTAGE OF UTERUS 05/18/2019 HYSTEROSCOPY 12/23/2021 LEG AMPUTATION THROUGH KNEE Right 06/16/2019 UPPER GASTROINTESTINAL ENDOSCOPY N/A 06/29/2023 Dr Sergio Sibley at [facility]; no specimens WISDOM TOOTH EXTRACTION Allergy(ies): No Known Allergies Family History: Family History Problem Relation Name Age of Onset No Known Problems Mother No Known Problems Father Social History: Social History Tobacco Use Smoking status: Never Smokeless tobacco: Never Vaping Use Vaping status: Never Used Substance Use Topics Alcohol use: No Drug use: Never Portions of the information within this encounter were entered using an electronic dictation system. Best attempts were made to edit/proofread the information prior to note completion. Despite the review of information, some errors may remain. If there are questions related to the information contained within the note please contact the signing physician directly. I spent 75 minutes with the pt which involved coordination of care, medical evaluation, review of records, and/or counseling of the pt regarding his/her condition/disease state/prognosis on the date of this note. Cosigned by Geronimo Lee MD at 10/20/2024 1:24 PM EST Associated Order(s): IP CONSULT TO INFECTIOUS DISEASES Images from the original note were not included. [facility] - Infectious Diseases Attending Consult Note Reason for Consult: Sepsis, acute cholecystitis. History of Present Illness: 58 y/o male was admitted on 10/18/24 from [facility] with abdominal pain, nausea, vomiting, chest pain since 10/16/24; he characterized his pain as persistent, mainly in the middle and on right side of abdomen, rated as 6/10; denied fever, chill, dysuria; in ED, he was afebrile but tachycardic (P 93), CT abdomen showed distended gallbladder with suspected gallbladder wall edema, labs showed leukocytosis (25.9 k), lactic acidosis (2.2), ceftriaxone and metronidazole were given initially. He was seen, found him alert, laying on bed, c/o feeling sick with firm abdomen with pain, thirsty, weakness, he mentioned about similar symptoms in January of this year-which were resolved on its own, he appeared ill. He has h/o DM, HTN, Lymphedema, endometrial cancer, DVT, Morbid obesity disorder. He was examined; notes, labs, imaging were reviewed; treatment plan was discussed; clinical informations were documented in electronic record. 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 other toe(s), unspecified side (HCC) Anxiety disorder Bipolar 1 disorder ([facility]) Blood circulation, collateral Cellulitis chronic L lower leg COVID 12/08/2021 Depression Diabetes mellitus ([facility]) Type II, on insulin Disease of blood and blood forming organ Endometrial carcinoma ([facility]) 11/25/2020 Endometrial hyperplasia Foot ulcer ([facility]) Hx of blood clots RLE prior to amputation Hyperlipidemia Hypertension Lymphedema 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, RLE Morbidly obese ([facility]) Muscle weakness Osteomyelitis ([facility]) Osteomyelitis ([facility]) 2019 RLE Other lack of coordination Other specified soft tissue disorders Other symbolic dysfunctions Schizophrenia ([facility]) Sleep apnea no CPAP Venous insufficiency Past Surgical History: Past Surgical History: Procedure Laterality Date ABCESS DRAINAGE Right 09/09/2018 FOOT; ACH COLONOSCOPY 09/19/[address] Hyde DILATION AND CURETTAGE OF UTERUS 05/18/2019 HYSTEROSCOPY 12/23/2021 LEG AMPUTATION THROUGH KNEE Right 06/16/2019 UPPER GASTROINTESTINAL ENDOSCOPY N/A 06/29/2023 Dr Sergio Sibley at [facility]; no specimens WISDOM TOOTH EXTRACTION Current Medications: Current Facility-Administered Medications Medication Dose Route Frequency Provider Last Rate Last Admin acetaminophen (Tylenol) tablet 650 mg 650 mg Oral q6h PRN Grace Ackerman MD Or acetaminophen (Tylenol) suppository 650 mg 650 mg Rectal q6h PRN Grace Ackerman MD amLODIPine (Norvasc) tablet 10 mg 10 mg Oral Daily Grace Ackerman MD 10 mg at 10/19/24 0947 ARIPiprazole (Abilify) tablet 10 mg 10 mg Oral Daily Grace Ackerman MD 10 mg at 10/19/24 0947 aspirin EC tablet 81 mg 81 mg Oral Daily Grace Ackerman MD atorvastatin (Lipitor) tablet 10 mg 10 mg Oral Daily Grace Ackerman MD 10 mg at 10/19/24 0947 bisacodyl (Dulcolax) EC tablet 5 mg 5 mg Oral BID PRN Grace Ackerman MD carvedilol (Coreg) tablet 25 mg 25 mg Oral BID WC Grace Ackerman MD 25 mg at 10/19/24 0947 dextrose 5 % infusion 100 mL/hr IntraVENous PRN Grace Ackerman MD dextrose 50 % solution 12.5 g 12.5 g IntraVENous PRN Grace Ackerman MD fentaNYL (Sublimaze) injection IntraVENous PRN Alfredito Baumann MD 50 mcg at 10/19/24 1350 ferrous sulfate tablet 325 mg 325 mg Oral Daily with breakfast Grace Ackerman MD 325 mg at 10/19/24 0946 FLUoxetine (PROzac) capsule 40 mg 40 mg Oral Daily Grace Ackerman MD 40 mg at 10/19/24 0946 gabapentin (Neurontin) capsule 100 mg 100 mg Oral BID Grace Ackerman MD 100 mg at 10/19/24 0946 glucagon (human recombinant) injection 1 mg 1 mg IntraMUSCular PRN Grace Ackerman MD glucose oral gel 15 g 15 g Oral PRN Grace Ackerman MD hydrALAZINE (Apresoline) tablet 25 mg 25 mg Oral TID Grace Ackerman MD 25 mg at 10/19/24 0947 HYDROmorphone (Dilaudid) injection 0.25 mg 0.25 mg IntraVENous q4h PRN Álvaro Thomas MD influenza vaccine tiss-cult subunt (Flucelvax) STANDARD-DOSE injection 0.5 mL 0.5 mL IntraMUSCular Prior to discharge Grace Ackerman MD insulin glargine (Lantus) injection 45 Units 45 Units SubCUTAneous BID Grace Ackerman MD Insulin Lispro (Humalog) injection 0-12 Units 0-12 Units SubCUTAneous 4x daily AC & HS Grace Ackerman MD 8 Units at 10/19/24 1226 ipratropium-albuterol (Duo-Neb) 0.5-2.5 mg/3 mL nebulizer solution 3 mL 3 mL Nebulization 4x daily PRN Grace Ackerman MD 3 mL at 10/18/24 2301 lactated Ringer's infusion 50 mL/hr IntraVENous Continuous Álvaro Thomas MD 50 mL/hr at 10/19/24 1222 50 mL/hr at 10/19/24 1222 lidocaine PF (Xylocaine) 2 % injection Infiltration PRN Alfredito Baumann MD 5 mL at 10/19/24 1350 magnesium hydroxide (Milk of Magnesia) 400 MG/5ML suspension 30 mL 30 mL Oral Nightly Grace Ackerman MD Melatonin disintegrating tablet 10 mg 10 mg Oral Nightly PRN Grace Ackerman MD 10 mg at 10/18/24 2223 [Held by provider] metoclopramide (Reglan) tablet 10 mg 10 mg Oral 4x daily AC & HS Grace Ackerman MD 10 mg at 10/19/24 0631 midazolam (Versed) injection IntraVENous PRN Alfredito Baumann MD 1 mg at 10/19/24 1350 naloxone (Narcan) injection 0.4 mg 0.4 mg IntraVENous q5 min PRN Álvaro Thomas MD ondansetron ODT (Zofran-ODT) disintegrating tablet 4 mg 4 mg Oral q8h PRN Grace Ackerman MD Or ondansetron (Zofran) injection 4 mg 4 mg IntraVENous q6h PRN Grace Ackerman MD 4 mg at 10/19/24 0041 pantoprazole (ProtoNix) 40 mg in sodium chloride (PF) 0.9 % 10 mL injection 40 mg IntraVENous BID Grace Ackerman MD 40 mg at 10/19/24 0631 piperacillin-tazobactam (Zosyn) 3,375 mg in sodium chloride 0.9 % 50 mL IVPB Mini-Bag Plus 3,375 mg IntraVENous q8h Grace Ackerman MD Stopped at 10/19/24 1300 sodium chloride 0.9 % infusion 5-250 mL/hr IntraVENous PRN Grace Ackerman MD sodium chloride 0.9% (NS) flush 10 mL 10 mL IntraVENous 2 times per day Grace Ackerman MD 10 mL at 10/18/24 2227 sodium chloride 0.9% (NS) flush 10 mL 10 mL IntraVENous PRN Grace Ackerman MD [Held by provider] torsemide (Demadex) tablet 10 mg 10 mg Oral Daily Grace Ackerman MD 10 mg at 10/19/24 0946 Allergies: No Known Allergies Social History: Social History Socioeconomic History Marital status: Single Spouse name: Not on file Number of children: Not on file Years of education: Not on file Highest education level: Not on file Occupational History Not on file Tobacco Use Smoking status: Never Smokeless tobacco: Never Vaping Use Vaping status: Never Used Substance and Sexual Activity Alcohol use: No Drug use: Never Sexual activity: Not on file Other Topics Concern Not on file Social History Narrative Not on file 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 Health Financial Resource Strain: Not on file Food Insecurity: No Food Insecurity (10/19/2024) Hunger Vital Sign Worried About Running Out of Food in the Last Year: Never true Ran Out of Food in the Last Year: Never true Transportation Needs: No Transportation Needs (10/19/2024) PRAPARE - Transportation Lack of Transportation (Medical): No Lack of Transportation (Non-Medical): No Physical Activity: Not on file Stress: No Stress Concern Present (10/19/2024) [employer] - Occupational Stress Questionnaire Feeling of Stress : Only a little Social Connections: Unknown (10/19/2024) Social Connection and Isolation Panel [NHANES] Frequency of Communication with Friends and Family: Three times a week Frequency of Social Gatherings with Friends and Family: Once a week Attends [employer] Services: 1 to 4 times per year Active Member of Clubs or Organizations: No Attends Club or Organization Meetings: Never Marital Status: Patient declined Intimate Partner Violence: Not At Risk (10/19/2024) Humiliation, Afraid, Rape, and Kick questionnaire Fear of Current or Ex-Partner: No Emotionally Abused: No Physically Abused: No Sexually Abused: No Housing Stability: Low Risk (10/19/2024) Housing Stability Vital Sign Unable to Pay for Housing in the Last Year: No Number of Times Moved in the Last Year: 0 Homeless in the Last Year: No Family History: Family History Problem Relation Name Age of Onset No Known Problems Mother No Known Problems Father Review of Systems: Review of Systems Constitutional: Negative for chills and fever. HENT: Negative for ear pain and sore throat. Eyes: Negative for pain and visual disturbance. Respiratory: Negative for cough and shortness of breath. Cardiovascular: Positive for chest pain. Negative for palpitations. Gastrointestinal: Positive for abdominal pain, nausea and vomiting. Genitourinary: Negative for dysuria and hematuria. Musculoskeletal: Negative for arthralgias and back pain. Skin: Negative for color change and rash. Neurological: Negative for seizures and syncope. All other systems reviewed and are negative. Vitals: Patient Vitals for the past 24 hrs: BP Temp Temp src Pulse Resp SpO2 Height Weight 10/19/24 1335 140/83 -- -- 103 -- 99 % -- -- 10/19/24 0334 149/89 -- -- 98 -- 93 % -- -- 10/18/242103 114/66 36.7 C (98 F) Temporal 94 24 96 % 1.676 m (5' 6") (!) 145 kg (320 lb) 10/18/242102 114/66 36.7 C (98 F) Temporal 94 24 96 % -- -- 10/18/242001 130/63 -- -- 92 -- (!) 90 % -- -- 10/18/24 192 131/62 -- -- 92 18 (!) 92 % -- -- 10/18/241851 134/63 -- -- 90 18 95 % -- -- 10/18/24 1633 (!) 152/67 36.9 C (98.4 F) Oral 93 20 95 % 1.676 m (5' 6") 132 kg (290 lb) Physical Exam: Physical Exam Vitals and nursing note reviewed. Constitutional: General: He is ill-appearing. Appearance: He is well-developed. HENT: Head: Normocephalic and atraumatic. Eyes: Conjunctiva/sclera: Conjunctivae normal. Cardiovascular: Rate and Rhythm: Normal rate and regular rhythm. Heart sounds: No murmur heard. Pulmonary: Effort: Pulmonary effort is normal. No respiratory distress. Breath sounds: Normal breath sounds. Abdominal: General: There is distension. Palpations: Abdomen is soft. Tenderness: There is abdominal tenderness (tender epigastric and right mid abdomen). Musculoskeletal: General: No swelling. Cervical back: Neck supple. Comments: Right lower extremity amputation (AKA) Skin: General: Skin is warm and dry. Capillary Refill: Capillary refill takes less than 2 seconds. Neurological: Mental Status: He is alert. Psychiatric: Mood and Affect: Mood normal. Labs: Recent Labs 10/18/24 1640 10/19/24 0343 NA 137 135* K 4.1 3.6 CL 103 102 CO2 21* 22 BUN 24* 32* CREATININE 1.16 1.15 GLUCOSE 226* 223* CALCIUM 9.0 8.9 PROT 6.7 6.5 BILITOT 0.7 0.8 ALKPHOS 133 151 AST 50* 50* ALT 67 83 Recent Labs 10/18/24 1640 10/19/24 0343 WBC 25.9* 21.8* HGB 11.6* 10.9* HCT 36.8 34.4 PLT 373 339 LYMPHOPCT 2* 10* MONOPCT 6 1* Micro: No results for input(s): "COVID19" in the last 72 hours. 10/19/2024 093271 1415 Culture, Aerobic Bacteria with Gram Stain [[id number]] Bile from Gallbladder In process Component Value No component results 10/19/2024 71553312/20/2023 1415 Aerobic and Anaerobic Culture with Stain [[id number]] Bile from Gallbladder In process Component Value No component results 10/19/2024 71329312/20/2023 1415 Anaerobic culture [[id number]] Bile from Gallbladder In process Component Value No component results 10/19/2024 10159012/20/2023 0207 Occult blood, stool [[id number]] (Abnormal) Stool from Per Rectum Final result Component Value Fecal occult blood Positive Abnormal 10/18/2024 27753612/20/2023 0022 Urine culture [[id number]] Urine, Clean Catch In process Component Value No component results Lines: PIV site looked ok Radiography/Echo/Other: US guided percutaneous peritoneal or retroperitoneal fluid collection drainage [[id number]] Resulted: 10/19/24 1334 Order Status: Sent Updated: 10/19/24 1405 US abdomen limited [[id number]] Collected: 10/18/242011 Order Status: Completed Updated: 10/18/242021 Narrative: Patient Name: WILL JACINTO : 1965 Exam Date/Time: 10/18/2024 19:36 Procedure: US ABDOMEN LIMITED Ordering Provider: WOODALL FELIX Reason For Exam: possible acute cholecystitis ULTRASOUND OF RIGHT UPPER QUADRANT CLINICAL INDICATION: possible acute cholecystitis TECHNIQUE: Real-time ultrasound of the right upper quadrant of the abdomen. COMPARISON: Ultrasound abdomen Limited, October,; CT abdomen and pelvis, October,. FINDINGS: Gallbladder distended and contains sludge and shadowing calculi. Gallbladder wall thickened measuring up to 6 mm, with probable mural edema and trace pericholecystic fluid Intra-and extrahepatic bile ducts are of normal caliber. Positive sonographic Caldwell's sign. Liver suboptimally visualized without focal abnormalities. Right kidney measures 12.8 cm in longest dimension. Approximately 1 cm, hyperechoic and nonshadowing focus in the lower pole region not appreciated on comparison CT. No significant hydronephrosis. Pancreas not adequately visualized due to overlying bowel gas. Impression: 1. Cholestasis, cholelithiasis, gallbladder wall thickening, with probable mural edema and trace pericholecystic fluid, as well as positive sonographic Caldwell's sign, suspicious for postinflammatory change, including acute cholecystitis. Clinical correlation and follow-up as indicated. Report Dictated on Electronically Signed By: Joel Haddad MD Electronically Signed Date/Time: 10/18/2024 8:[address] abdomen pelvis w contrast [[id number]] Collected: 10/18/241904 Order Status: Completed Updated: 10/18/241913 Narrative: [facility] 1965 [id number] Exam Date/Time: 10/18/2024 17:21 Procedure: CT ABDOMEN PELVIS W CONTRAST Ordering Provider: WOODALL FELIX Reason For Exam: Abdominal pain and distention with vomiting Indication: Abdominal pain vomiting. FINDINGS: Unenhanced abdomen pelvis with 75 mL Isovue-370 performed. Dose reduction and automated exposure control utilized. No free air. Distended stomach with air-fluid level. Bowel otherwise nondistended. Limited bowel assessment, lack of oral contrast. No convincing pneumatosis or abscess. Appendix not confidently seen. The gallbladder appears markedly distended with some suspected wall edema within limits of the study including artifact from motion, crisscross artifact. No convincing active disease of liver, the pancreas, spleen kidneys, adrenals, urinary bladder. No adenopathy. No definite aneurysm. No spinal compression. Impression: Distended gallbladder with suspected gallbladder wall edema concerning for acute cholecystitis. Distended stomach with air-fluid level may be related. Please correlate clinically. Follow-up recommended. CTR Dr Woodall. Report Dictated on Electronically Signed By: Javy Urias MD Electronically Signed Date/Time: 10/18/2024 7:[address] chest angiogram w and/or wo IV contrast [[id number]] Collected: 10/18/241856 Order Status: Completed Updated: 10/18/241912 Narrative: Patient Name: WILL JACINTO : 1965 [facility]#: [id number] Exam Date/Time: 10/18/2024 17:20 Procedure: CT CHEST ANGIOGRAM W AND/OR WO IV CONTRAST Ordering Provider: WOODALL FELIX Reason For Exam: Chest pain, shortness of breath, rule out pulmonary balloon History: Chest discomfort. Comparison: 06/28/2023 Findings: Dose reduction was employed with automated exposure control. Enhanced imaging of the chest was performed with 1 mm slices from neck to upper abdomen. 75 cc isovue 370 utilized. Additional images: 3-D imaging created and reviewed on independent platform for better detection of pathology. Exam is very limited due to severe motion artifact. Airway:Grossly patent. Mediastinum and great vessels: Limited due to motion. No large central PE visualized. Coronary arteries:No significant calcification. .No convincing emergent adenopathy within limits of the study. LUNGS:No convincing major volume loss. Very limited. Stable nodule right lung approximately 8mm; limited assessment due to artifact. Spine: No convincing acute or occult process.. Upper abdomen: Distended stomach with air-fluid level. Significance uncertain.. Impression: Impression:Very limited due to motion.. Consider repeat exam or VQ scan for persistent symptoms. Note made of distended stomach with air-fluid level. Report Dictated on Electronically Signed By: Javy Urias MD Electronically Signed Date/Time: 10/18/2024 7:05 PM EST Antimicrobials,Start/End Dates: Ceftr 10/18 Metro 10/18 Pip/tazo 10/19- Impression: Sepsis (tachycardia, leukocytosis, lactic acidosis). Acute cholecystitis. Leukocytosis. Type 2 diabetes. Bipolar disorder. 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 Morbid obesity disorder. Plan: Pt sick due to sepsis due to acute cholecystitis. He is afebrile but remained tachycardic (P 102-103) and with leukocytosis. Blood cxs were not drawn before administration of antimicrobials. Await percutaneous cholecystostomy drainage fluid cx result. Question of recurrent cholecystitis (had similar symptoms in January). Continue pip/tazo. Follow inflammatory markers. Needs to know whether he is on chronic use of testosterone. High level complexity medical decision making. Will follow. Thank you. At least total time of 75 minutes on this day of encounter spent on, but not limited to review of tests, medical records , complex history , review of external medical records, paper and electronic, counseling and education (patient, family member, caregiver), ordering medications, tests, and procedures, communication with other health care professions, independent interpretation of tests, care coordination, arrangement of outpatient antimicrobial therapy, post-hospitalization therapy and follow-up, and counseling for risks, benefits, and consideration of use of antimicrobials. Associated Order(s): IP CONSULT TO GENERAL SURGERY Images from the original note were not included. Attending Attestation [facility] - Surgery [facility] Patient Name: Will Jacinto Date: 10/19/24 Patient seen and examined. Presents with RUQ pain for 2-3 days. Has had one prior episode. Denies nausea. Has had loose dark stools. New O2 requirement this admission. Has history of diabetes with complication requiring right lower extremity amputation. He states blood sugars have been >400 at his facility. Prior abdominal surgeries significant for hysterectomy. Has history of VTE in 2019, but not currently on blood thinning medication. Exam: Abdomen: Soft, TTP in RUQ, nondistended, exam limited by morbid obesity Assessment and Plan: 58 y.o. adult with RUQ pain Labs, notes and imaging reviewed CT, RUQ US and clinical exam consistent with acute cholecystitis Patient with uncontrolled blood sugars, new oxygen requirement, not appropriate for surgery at present Therefore, continue IV antibiotics and will obtain percutaneous cholecystostomy drainage Trial diet after drain placed Follow cultures of per ton drain Medical management per primary Surgery will follow This case had high medical decision making and case complexity with 75 minute total care time including chart review, care coordination and face to face encounter. The patient was seen and examined independently and relevant data reviewed by myself. A full chart review was performed. I personally interviewed the patient and performed an individual physical examination. In addition, I discussed the patient's condition and treatment options with them. I have also reviewed and agree with the past medical, family and social history and care plan unless otherwise noted. All of the patient's questions were answered. Lilo Rizo MD General Surgery Pager #[phone] 1:56 PM 10/19/2024 Department of General Surgery Consult PATIENT NAME: Will Jacinto DATE OF : 1965 ADMISSION DATE: 10/18/2024 4:21 PM TODAY'S DATE: 10/19/2024 Reason for Consult: Acute cholecystitis HISTORY OF PRESENT ILLNESS: The patient is a 58 y.o. adult who presents with upper abdominal pain. Patient states that he had onset of upper abdominal pain that started Wednesday evening. Patient notes that this occurred after eating a snack of peanut butter crackers and potato chips. He notes a similar episode this past January that resolved on its own. Patient notes that the entire abdomen feels distended. He notes several episodes of dark, loose stool as well. Patient denies fever/chills or nausea/vomiting. He resides at and notes that while oxygen has been needed since admission that he does not wear it at baseline. He states that his glucose has been running high, into the 500 range over the past several days. Patient notes continued abdominal pain and distention on examination this morning. He is aware of findings and operative risks and agrees that biliary drainage in the best course of action. PMH notable for DM, endometrial cancer, DVT, HTN, HLD, morbid obesity, JOHN, schizophrenia. Psh notable for hysteroscopy, D&C, colonoscopy. Fhx unknown. Patient denies OAC. US with cholestasis, cholelithiasis, wall thickening, with probable mural edema and trace pericholecystic fluid with (+)sonographic Caldwell sign. CT demonstrates distended gallbladder with suspected wall edema, distended stomach with air-fluid level. WBC 21.8, Hgb 10.9, bilirubin 0.8. VSS on 2L O2. Thoroughly reviewed the patient's medical history, family history, social history and review of systems with the patient today in the office. Please see medical record for pertinent positives. 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 other toe(s), unspecified side (HCC) Anxiety disorder Bipolar 1 disorder ([facility]) Blood circulation, collateral Cellulitis chronic L lower leg COVID 12/08/2021 Depression Diabetes mellitus ([facility]) Type II, on insulin Disease of blood and blood forming organ Endometrial carcinoma ([facility]) 11/25/2020 Endometrial hyperplasia Foot ulcer (HCC) Hx of blood clots RLE prior to amputation Hyperlipidemia Hypertension Lymphedema 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, RLE Morbidly obese ([facility]) Muscle weakness Osteomyelitis (HCC) Osteomyelitis (HCC) 2019 RLE Other lack of coordination Other specified soft tissue disorders Other symbolic dysfunctions Schizophrenia ([facility]) Sleep apnea no CPAP Venous insufficiency Past Surgical History: Past Surgical History: Procedure Laterality Date ABCESS DRAINAGE Right 09/09/2018 FOOT; ACH COLONOSCOPY 09/19/[address] Hyde DILATION AND CURETTAGE OF UTERUS 05/18/2019 HYSTEROSCOPY 12/23/2021 LEG AMPUTATION THROUGH KNEE Right 06/16/2019 UPPER GASTROINTESTINAL ENDOSCOPY N/A 06/29/2023 Dr Sergio Sibley at [facility]; no specimens WISDOM TOOTH EXTRACTION Current Medications: amLODIPine, 10 mg, Oral, Daily ARIPiprazole, 10 mg, Oral, Daily aspirin, 81 mg, Oral, Daily atorvastatin, 10 mg, Oral, Daily carvedilol, 25 mg, Oral, BID WC ferrous sulfate, 325 mg, Oral, Daily with breakfast FLUoxetine, 40 mg, Oral, Daily gabapentin, 100 mg, Oral, BID hydrALAZINE, 25 mg, Oral, TID influenza, 0.5 mL, IntraMUSCular, Prior to discharge insulin glargine, 45 Units, SubCUTAneous, BID insulin lispro, 0-12 Units, SubCUTAneous, 4x daily AC & HS magnesium hydroxide, 30 mL, Oral, Nightly [Held by provider] metoclopramide, 10 mg, Oral, 4x daily AC & HS pantoprazole (ProtoNix) 40 mg in sodium chloride (PF) 0.9 % 10 mL injection, 40 mg, IntraVENous, BID piperacillin-tazobactam, 3,375 mg, IntraVENous, q8h sodium chloride 0.9%, 10 mL, IntraVENous, 2 times per day [Held by provider] torsemide, 10 mg, Oral, Daily lactated Ringer's, 50 mL/hr PRN medications: acetaminophen OR acetaminophen, bisacodyl, dextrose, dextrose, glucagon (rDNA), glucose, HYDROmorphone, ipratropium-albuterol, Melatonin, naloxone, ondansetron ODT OR ondansetron, sodium chloride, sodium chloride 0.9% Allergies: Patient has no known allergies. Social History: Social History Socioeconomic History Marital status: Single Spouse name: Not on file Number of children: Not on file Years of education: Not on file Highest education level: Not on file Occupational History Not on file Tobacco Use Smoking status: Never Smokeless tobacco: Never Vaping Use Vaping status: Never Used Substance and Sexual Activity Alcohol use: No Drug use: Never Sexual activity: Not on file Other Topics Concern Not on file Social History Narrative Not on file 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 Health Financial Resource Strain: Not on file Food Insecurity: No Food Insecurity (10/19/2024) Hunger Vital Sign Worried About Running Out of Food in the Last Year: Never true Ran Out of Food in the Last Year: Never true Transportation Needs: No Transportation Needs (10/19/2024) PRAPARE - Transportation Lack of Transportation (Medical): No Lack of Transportation (Non-Medical): No Physical Activity: Not on file Stress: No Stress Concern Present (10/19/2024) [employer] [place] [employer] - Occupational Stress Questionnaire Feeling of Stress : Only a little Social Connections: Unknown (10/19/2024) Social Connection and Isolation Panel [NHANES] Frequency of Communication with Friends and Family: Three times a week Frequency of Social Gatherings with Friends and Family: Once a week Attends [employer] Services: 1 to 4 times per year Active Member of Clubs or Organizations: No Attends Club or Organization Meetings: Never Marital Status: Patient declined Intimate Partner Violence: Not At Risk (10/19/2024) Humiliation, Afraid, Rape, and Kick questionnaire Fear of Current or Ex-Partner: No Emotionally Abused: No Physically Abused: No Sexually Abused: No Housing Stability: Low Risk (10/19/2024) Housing Stability Vital Sign Unable to Pay for Housing in the Last Year: No Number of Times Moved in the Last Year: 0 Homeless in the Last Year: No Family History: Family History Problem Relation Name Age of Onset No Known Problems Mother No Known Problems Father REVIEW OF SYSTEMS: CONSTITUTIONAL: Negative for fatigue, and unexpected weight change HENT: Negative for hearing loss, nosebleeds, sneezing, sore throat, trouble swallowing and voice change. RESPIRATORY: Negative for cough, SOB, and wheezing CARDIOVASCULAR: Negative for chest pains and palpatations GASTROINTESTINAL: Positive for abdominal pain, diarrhea, and melena. Negative for fever/chills, nausea/vomiting, hematochezia, or constipation GENITOURINARY: negative for dysuria, urgency, frequency, and difficulty urinating. SKIN: negative for rash ALLERGIC/IMMUNOLOGIC: Negative for immunocompromised state HEMATOLOGIC/LYMPHATIC: Negative for adenopathy. Does not bruise/bleed easily. NEUROLOGICAL: Negative for seizures and syncope * All other ROS reviewed see HPI for pertinent positives and negatives. PHYSICAL EXAM: VITALS: BP 149/89 (BP Location: Right arm) Pulse 98 Temp 36.7 C (98 F) (Temporal) Resp 24 Ht 5' 6" (1.676 m) Wt (!) 320 lb (145 kg) SpO2 93% BMI 51.65 kg/m 24HR INTAKE/OUTPUT: I/O last 3 completed shifts: In: 75 (0.5 mL/kg) [P.O.:25; IV Piggyback:50] Out: - (0 mL/kg) Weight: 145.1 kg No intake/output data recorded. CONSTITUTIONAL: Appears well nourished. No distress EYES: PERRL, conjunctiva normal ENT: Normocepalic,atraumatic, without obvious abnormality NECK: supple, symmetrical, trachea midline, no thyromegaly LUNGS: Resp effort easy and unlabored, breath sounds normal CARDIOVASCULAR: NO JVD, RRR, No murmur ABDOMEN: soft, distended, mild widespread tenderness, peritoneal signs absent, no masses palpated and hernia absent MUSCULOSKELETAL: Normal range of motion, no edema NEUROLOGIC: Mental Status Exam: Level of Alertness: alert Sensation globally intact PSYCHIATRIC: Oriented to person, place, and time. Speech is normal, mood appears normal SKIN: Warm, dry, and intact DATA: US abdomen limited Status: Final result Link to Procedure Log Procedure Log PACS Images Show images for US abdomen limited Study Result Narrative & Impression Patient Name: WILL JACINTO : 1965 Exam Date/Time: 10/18/2024 19:36 Procedure: US ABDOMEN LIMITED Ordering Provider: WOODALL FELIX Reason For Exam: possible acute cholecystitis ULTRASOUND OF RIGHT UPPER QUADRANT CLINICAL INDICATION: possible acute cholecystitis TECHNIQUE: Real-time ultrasound of the right upper quadrant of the abdomen. COMPARISON: Ultrasound abdomen Limited, October,; CT abdomen and pelvis, October,. FINDINGS: Gallbladder distended and contains sludge and shadowing calculi. Gallbladder wall thickened measuring up to 6 mm, with probable mural edema and trace pericholecystic fluid Intra-and extrahepatic bile ducts are of normal caliber. Positive sonographic Caldwell's sign. Liver suboptimally visualized without focal abnormalities. Right kidney measures 12.8 cm in longest dimension. Approximately 1 cm, hyperechoic and nonshadowing focus in the lower pole region not appreciated on comparison CT. No significant hydronephrosis. Pancreas not adequately visualized due to overlying bowel gas. IMPRESSION: 1. Cholestasis, cholelithiasis, gallbladder wall thickening, with probable mural edema and trace pericholecystic fluid, as well as positive sonographic Caldwell's sign, suspicious for postinflammatory change, including acute cholecystitis. Clinical correlation and follow-up as indicated. Report Dictated on Electronically Signed By: Joel Haddad MD Electronically Signed Date/Time: 10/18/2024 8:21 PM EST Result History US abdomen limited (Order #[id number]) on 10/18/2024 - Order Result History Report US abdomen limited: Patient Communication Add Comments Not seen Breast Imaging Recommendations Maria Luisa Jacinto No recommendations exist for this order. Risk Scores No Tyrer-Cuzick assessment data. No Risk Considerations assessment data. No NCC HBOC Guidelines assessment data. No NCCN Caro assessment data. No Risk Explanation Tyrer-Cuzick 8 assessment data. No BRCAPRO assessment data. No Myriad risk assessment data. No Arian risk assessment data. No Anne risk assessment data. No PROGRAMMING COORDINATOR Request ID assessment data. No [facility] windows server architect ID assessment data. Breast Cancer Risk Navigation Events None Signed by Signed Time Phone Pager Joel Haddad MD 10/18/2024 20:21 Exam Information Status Exam Begun Exam Ended Final 10/18/2024 19:36 10/18/2024 20:00 External Results Report Open External Results Report Encounter View Encounter Study Details Open Study Details Order Transmittal Tracking US abdomen limited (Order #[id number]) on 10/18/24 Order Report US abdomen limited (Order #[id number]) on 10/18/24 CT abdomen pelvis w contrast Status: Final result Link to Procedure Log Procedure Log Orders Requiring a Screening Form Procedure Order Status Order ID Accession Number Form Status CT abdomen pelvis w contrast Completed [id number] Created PACS Images Show images for CT abdomen pelvis w contrast Study Result Narrative & Impression Patient Name: WILL JACINTO : 1965 Exam Date/Time: 10/18/2024 17:21 Procedure: CT ABDOMEN PELVIS W CONTRAST Ordering Provider: WOODALL FELIX Reason For Exam: Abdominal pain and distention with vomiting Indication: Abdominal pain vomiting. FINDINGS: Unenhanced abdomen pelvis with 75 mL Isovue-370 performed. Dose reduction and automated exposure control utilized. No free air. Distended stomach with air-fluid level. Bowel otherwise nondistended. Limited bowel assessment, lack of oral contrast. No convincing pneumatosis or abscess. Appendix not confidently seen. The gallbladder appears markedly distended with some suspected wall edema within limits of the study including artifact from motion, crisscross artifact. No convincing active disease of liver, the pancreas, spleen kidneys, adrenals, urinary bladder. No adenopathy. No definite aneurysm. No spinal compression. IMPRESSION: Distended gallbladder with suspected gallbladder wall edema concerning for acute cholecystitis. Distended stomach with air-fluid level may be related. Please correlate clinically. Follow-up recommended. CTR Dr Woodall. Report Dictated on Electronically Signed By: Javy Urias MD Electronically Signed Date/Time: 10/18/2024 7:12 PM EST Result History CT abdomen pelvis w contrast (Order #[id number]) on 10/18/2024 - Order Result History Report CT abdomen pelvis w contrast: Patient Communication Add Comments Not seen Breast Imaging Recommendations Maria Luisa Jacinto No recommendations exist for this order. Risk Scores No Tyrer-Cuzick assessment data. No Risk Considerations assessment data. No NCC HBOC Guidelines assessment data. No NCCN Caro assessment data. No Risk Explanation TyrsantiagoSallyck 8 assessment data. No BRCAPRO assessment data. No Myriad risk assessment data. No Arian risk assessment data. No Anne risk assessment data. No PROGRAMMING COORDINATOR Request ID assessment data. No PROGRAMMING COORDINATOR windows server architect ID assessment data. Breast Cancer Risk Navigation Events None Signed by Signed Time Phone Pager Javy Urias MD 10/18/2024 19:12 Exam Information Status Exam Begun Exam Ended Final 10/18/2024 17:21 10/18/2024 18:06 External Results Report Open External Results Report Encounter View Encounter Screening Form Questions No questions have been answered for this form. Study Details Open Study Details Order Transmittal Tracking CT abdomen pelvis w contrast (Order #[id number]) on 10/18/[address] abdomen pelvis w contrast (Order #[id number]) on 10/18/24 CBC: Recent Labs 10/18/24 1640 10/19/24 0343 WBC 25.9* 21.8* HGB 11.6* 10.9* HCT 36.8 34.4 PLT 373 339 BMP: Recent Labs 10/18/24 1640 10/19/24 0343 NA 137 135* K 4.1 3.6 CL 103 102 CO2 21* 22 BUN 24* 32* CREATININE 1.16 1.15 GLUCOSE 226* 223* Hepatic: Recent Labs 10/18/24 1640 10/19/24 0343 AST 50* 50* ALT 67 83 BILITOT 0.7 0.8 ALKPHOS 133 151 Mag: No results for input(s): "MG" in the last 72 hours. Phos: No results for input(s): "PHOS" in the last 72 hours. INR: No results for input(s): "INR" in the last 72 hours. IMPRESSION/RECOMMENDATIONS: Mr. Jacinto is a 58 y.o. M presenting with abdominal pain -US with cholestasis, cholelithiasis, wall thickening, with probable mural edema and trace pericholecystic fluid with (+)sonographic Caldwell sign -CT demonstrates distended gallbladder with suspected wall edema, distended stomach with air-fluid level -WBC 21.8, Hgb 10.9, bilirubin 0.8 -Glucose 336 -NPO -IV Zosyn -IVF -Biliary drain to be placed this afternoon -Fecal occult positive, GI following without plans for scope at this time -Medical mgmt per primary team Disposition: Patient with symptoms and imaging suspicious for acute cholecystitis. Due to medical comorbidities, operative intervention is high risk. Recommend percutaneous cholecystostomy tube- scheduled for this afternoon. Okay for CLD following placement. Will continue to follow. Patient counseled on risks, benefits, and alternatives of treatment plan at length. Patient states an understanding and willingness to proceed with plan. Thank you for the opportunity to care for your patient, please don't hesitate to contact me for any questions or concerns you may have. KELLEY Kaplan Secure Chat during hours 7:30a-4:30p Wednesday-Wednesday After hours, please contact physician vp organizational development. Associated Order(s): Inpatient consult to Gastroenterology Images from the original note were not included. GI CONSULTATION Patient: Will Jacinto : 1965 Primary Care Physician: Jared Guzman Inpatient consult to Gastroenterology Consult performed by: Edwin Otto MD Consult ordered by: Grace Ackerman MD REASON FOR CONSULTATION: Fecal occult blood test positive HISTORY OF PRESENT ILLNESS: Will Jacinto is a 58 y.o. adult with PMH below who presented to the ER complaining of abdominal pain and chest pain. Patient reports that approximately 2 days ago he began having right upper quadrant/epigastric/chest pain. Nonradiating. Associated with some nausea. Progressively worsening. Denies any exacerbating relieving factors. No previous episodes. In the ER labs showed: Sodium 137, potassium 4.1, BUN 24, creatinine 1.16, normal hepatic function panel except for slightly elevated AST at 50, troponin negative, WBC 25.9, hemoglobin 11.6, platelet 373. CT abdomen/pelvis shows distended gallbladder with suspected gallbladder wall edema concerning for acute cholecystitis. Distended stomach with air-fluid level may be related patient admitted for further evaluation and management. PAST MEDICAL HISTORY: 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) Acquired absence of other toe(s), unspecified side (HCC) Anxiety disorder Bipolar 1 disorder ([facility]) Blood circulation, collateral Cellulitis chronic L lower leg COVID 12/08/2021 Depression Diabetes mellitus ([facility]) Type II, on insulin Disease of blood and blood forming organ Endometrial carcinoma (HCC) 11/25/2020 Endometrial hyperplasia Foot ulcer (HCC) Hx of blood clots RLE prior to amputation Hyperlipidemia Hypertension Lymphedema 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, RLE Morbidly obese ([facility]) Muscle weakness Osteomyelitis (HCC) Osteomyelitis (HCC) 2019 RLE Other lack of coordination Other specified soft tissue disorders Other symbolic dysfunctions Schizophrenia ([facility]) Sleep apnea no CPAP Venous insufficiency PAST SURGICAL HISTORY: Past Surgical History: Procedure Laterality Date ABCESS DRAINAGE Right 09/09/2018 FOOT; ACH COLONOSCOPY 09/19/[address] Hyde DILATION AND CURETTAGE OF UTERUS 05/18/2019 HYSTEROSCOPY 12/23/2021 LEG AMPUTATION THROUGH KNEE Right 06/16/2019 UPPER GASTROINTESTINAL ENDOSCOPY N/A 06/29/2023 Dr Sergio Sibley at [facility]; no specimens WISDOM TOOTH EXTRACTION FAMILY HISTORY: Family History Problem Relation Name Age of Onset No Known Problems Mother No Known Problems Father SOCIAL HISTORY: TOBACCO: Social History Tobacco Use Smoking Status Never Smokeless Tobacco Never ETOH: Alcohol Use: Not At Risk (10/19/2024) AUDIT-C Frequency of Alcohol Consumption: Never Average Number of Drinks: Patient does not drink Frequency of Binge Drinking: Never DRUGS: Social History Substance and Sexual Activity Drug Use Never MEDICATIONS PRIOR TO ADMISSION: Current Outpatient Medications Medication Instructions amLODIPine (NORVASC) 10 mg, Oral, Daily ARIPiprazole (Abilify) 10 MG tablet Every 24 hours aspirin 81 MG EC tablet 1 tablet, Daily atorvastatin (Lipitor) 10 MG tablet 1 tablet, Daily bisacodyl (DULCOLAX) 5 mg, 2 times daily PRN carvedilol (COREG) 25 mg, Oral, 2 times daily with meals ferrous sulfate 325 mg, Oral, Daily with breakfast FLUoxetine (PROZAC) 40 mg, Daily gabapentin (NEURONTIN) 100 mg, 2 times daily HumuLIN R 130 Units, 3 times daily hydrALAZINE (APRESOLINE) 25 mg, 3 times daily insulin glargine (LANTUS) 47 Units, 2 times daily insulin regular (HUMULIN R U-500) 90 Units, SubCUTAneous, Daily before lunch insulin regular (HUMULIN R U-500) 120 Units, SubCUTAneous, Daily before breakfast insulin regular (HUMULIN R U-500) 100 Units, SubCUTAneous, Daily before dinner lisinopril 20 mg, Oral, Daily magnesium hydroxide (Milk of Magnesia) 400 MG/5ML suspension 30 mL, Oral, Nightly megestrol (Megace) 20 MG tablet 1 tablet, 2 times daily melatonin 10 mg, Nightly PRN metoclopramide (REGLAN) 10 mg, Oral, 4 times daily before meals & nightly Multiple Vitamin (multivitamin) capsule 1 capsule, Daily pantoprazole (PROTONIX) 40 mg polyethylene glycol (PEG) 3350 (GLYCOLAX) 17 g, Daily torsemide (DEMADEX) 10 mg, Oral, Daily CURRENT MEDICATIONS: Current Facility-Administered Medications: acetaminophen (Tylenol) tablet 650 mg, 650 mg, Oral, q6h PRN OR acetaminophen (Tylenol) suppository 650 mg, 650 mg, Rectal, q6h PRN, Grace Ackerman MD amLODIPine (Norvasc) tablet 10 mg, 10 mg, Oral, Daily, Grace Ackerman MD ARIPiprazole (Abilify) tablet 10 mg, 10 mg, Oral, Daily, Grace Ackerman MD aspirin EC tablet 81 mg, 81 mg, Oral, Daily, Grace Ackerman MD atorvastatin (Lipitor) tablet 10 mg, 10 mg, Oral, Daily, Grace Ackerman MD bisacodyl (Dulcolax) EC tablet 5 mg, 5 mg, Oral, BID PRN, Grace Ackerman MD carvedilol (Coreg) tablet 25 mg, 25 mg, Oral, BID WC, Grace Ackerman MD dextrose 5 % infusion, 100 mL/hr, IntraVENous, PRN, Grace Ackerman MD dextrose 50 % solution 12.5 g, 12.5 g, IntraVENous, PRN, Grace Ackerman MD ferrous sulfate tablet 325 mg, 325 mg, Oral, Daily with breakfast, Grace Ackerman MD FLUoxetine (PROzac) capsule 40 mg, 40 mg, Oral, Daily, Grace Ackerman MD gabapentin (Neurontin) capsule 100 mg, 100 mg, Oral, BID, Grace Ackerman MD, 100 mg at 10/18/242222 glucagon (human recombinant) injection 1 mg, 1 mg, IntraMUSCular, PRN, Grace Ackerman MD glucose oral gel 15 g, 15 g, Oral, PRN, Grace Ackerman MD hydrALAZINE (Apresoline) tablet 25 mg, 25 mg, Oral, TID, Grace Ackerman MD influenza vaccine tiss-cult subunt (Flucelvax) STANDARD-DOSE injection 0.5 mL, 0.5 mL, IntraMUSCular, Prior to discharge, Grace Ackerman MD insulin glargine (Lantus) injection 45 Units, 45 Units, SubCUTAneous, BID, Grace Ackerman MD Insulin Lispro (Humalog) injection 0-12 Units, 0-12 Units, SubCUTAneous, 4x daily AC & HS AND [DISCONTINUED] Insulin Lispro (Humalog) injection 0-12 Units, 0-12 Units, SubCUTAneous, Nightly, Grace Ackerman MD ipratropium-albuterol (Duo-Neb) 0.5-2.5 mg/3 mL nebulizer solution 3 mL, 3 mL, Nebulization, 4x daily PRN, Grace Ackerman MD, 3 mL at 10/18/24 2301 magnesium hydroxide (Milk of Magnesia) 400 MG/5ML suspension 30 mL, 30 mL, Oral, Nightly, Grace Ackerman MD Melatonin disintegrating tablet 10 mg, 10 mg, Oral, Nightly PRN, Grace Ackerman MD, 10 mg at 10/18/24 2223 metoclopramide (Reglan) tablet 10 mg, 10 mg, Oral, 4x daily AC & HS, Grace Ackerman MD, 10 mg at 10/19/24 0631 ondansetron ODT (Zofran-ODT) disintegrating tablet 4 mg, 4 mg, Oral, q8h PRN OR ondansetron (Zofran) injection 4 mg, 4 mg, IntraVENous, q6h PRN, Grace Ackerman MD, 4 mg at 10/19/24 0041 pantoprazole (ProtoNix) 40 mg in sodium chloride (PF) 0.9 % 10 mL injection, 40 mg, IntraVENous, BID, Grace Ackerman MD, 40 mg at 10/19/24 0631 piperacillin-tazobactam (Zosyn) 3,375 mg in sodium chloride 0.9 % 50 mL IVPB Mini-Bag Plus, 3,375 mg, IntraVENous, q8h, Grace Ackerman MD sodium chloride 0.9 % infusion, 5-250 mL/hr, IntraVENous, PRN, Grace Ackerman MD sodium chloride 0.9% (NS) flush 10 mL, 10 mL, IntraVENous, 2 times per day, Grace Ackerman MD, 10 mL at 10/18/247 sodium chloride 0.9% (NS) flush 10 mL, 10 mL, IntraVENous, PRN, Grace Ackerman MD torsemide (Demadex) tablet 10 mg, 10 mg, Oral, Daily, Grace Ackerman MD ALLERGIES: No Known Allergies REVIEW OF SYSTEMS: No fever, chills, or sweats. Normal appetite and weight. No MALCOLM, visual disturbance, eye pain, jaundice, sore throat or mouth ulcers. No skin rash or itching. No CP, SOB, ROBLERO, cough or wheeze. No urinary frequency, urgency, hematuria, or dysuria. No myalgia, arthralgia, or joint swelling. No weakness, numbness, or confusion. GI per HPI. No polyuria, polydipsia, heat or cold intolerance. PHYSICAL EXAM: VS: BP 149/89 (BP Location: Right arm) Pulse 98 Temp 36.7 C (98 F) (Temporal) Resp 24 Ht 5' 6" (1.676 m) Wt (!) 320 lb (145 kg) SpO2 93% BMI 51.65 kg/m Body mass index is 51.65 kg/m . GENERAL: Pleasant and NAD. HEENT: NCAT, PERRLA, EOMI, Scleral anicteric. Oropharhynx clear with no erythema or exudate. Neck supple, no cervical LAD or thyromegaly. CV: RRR, NL S1/S2, no murmurs. Distal pulses palpable and equal b/l. LUNGS: CTA b/l. Normal percussion and palpation. No W/R/R. Abdomen: + BS, soft, right upper quadrant tenderness to palpation. non-distended. No hepatosplenomegaly. No mass felt. No rebound or guarding. No hernia. Extremities: No C/C/E. No muscle atrophy. Skin: No skin lesion or breakdown. Lymph: No cervical or supraclavicular LAD. Musculoskeletal: Strength 5/5 in all exts. No joint tenderness or effusions in LEs. Neurologic: A&O x 3, CN II-XII grossly intact. No asterixis. Non-focal. Psych: Normal affect and speech. LABS AND IMAGING: Recent blood work and relevant radiologic and endoscopic studies were reviewed and discussed with the patient. CMP: Recent Labs 10/18/24 1640 10/19/24 0343 NA 137 135* K 4.1 3.6 CL 103 102 CO2 21* 22 BUN 24* 32* CREATININE 1.16 1.15 GLUCOSE 226* 223* CALCIUM 9.0 8.9 CBC: Recent Labs 10/18/24 1640 10/19/24 0343 WBC 25.9* 21.8* HGB 11.6* 10.9* HCT 36.8 34.4 PLT 373 339 HEPATIC: Recent Labs 10/18/24 1640 10/19/24 0343 AST 50* 50* ALT 67 83 BILITOT 0.7 0.8 ALKPHOS 133 151 BNP: No results for input(s): "BNP" in the last 72 hours. LIPASE/AMYLASE: Recent Labs 10/18/24 1640 LIPASE 6 LACTATE: No lab exists for component: "LACTA" TROPONIN: No results for input(s): "TROPONINI" in the last 72 hours. LIPIDS: No results for input(s): "CHOL", "HDL" in the last 72 hours. No lab exists for component: LDLCALCU INR: No results for input(s): "INR" in the last 72 hours. NH3:No results for input(s): "AMMONIA" in the last 72 hours. @IMAGES@ @RISRSLT@ POCT glucose meter Performed by: [facility], [address] [place] [address] CLIA ID: [id number] @[facility]@ @[facility]@ abdomen limited Final Result 1. Cholestasis, cholelithiasis, gallbladder wall thickening, with probable mural edema and trace pericholecystic fluid, as well as positive sonographic Caldwell's sign, suspicious for postinflammatory change, including acute cholecystitis. Clinical correlation and follow-up as indicated. Report Dictated on Electronically Signed By: Joel Haddad MD Electronically Signed Date/Time: 10/18/2024 8:[address] abdomen pelvis w contrast Final Result Distended gallbladder with suspected gallbladder wall edema concerning for acute cholecystitis. Distended stomach with air-fluid level may be related. Please correlate clinically. Follow-up recommended. CTR Dr Woodall. Report Dictated on Electronically Signed By: Javy Urias MD Electronically Signed Date/Time: 10/18/2024 7:[address] chest angiogram w and/or wo IV contrast Final Result Impression:Very limited due to motion.. Consider repeat exam or VQ scan for persistent symptoms. Note made of distended stomach with air-fluid level. Report Dictated on Electronically Signed By: Javy Urias MD Electronically Signed Date/Time: 10/18/2024 7:05 PM EST IMPRESSION / RECOMMENDATIONS: Diabetes Schizophrenia/bipolar/depression History of osteomyelitis of the right lower extremity status post AKA Obstructive sleep apnea Abdominal pain: CT scan suggest possible acute cholecystitis -General Surgery consulted Anemia/FOBT positive: Patient denies any black tarry stool or bright red blood per rectum. Review of hemoglobin looks like his baseline for the past year is between 10 and 10.5. Patient has never had an EGD or colonoscopy. -Monitor hemoglobin and transfuse as necessary -PPI daily -Check iron studies/non-GI bleed workup -Hold off on any scopes at this time (may consider as inpatient versus outpatient based on clinical course) while General Surgery evaluating patient for possible acute cholecystitis (Comment: Please note this report has been produced using speech recognition software and may contain errors related to that system including errors in grammar, punctuation, and spelling, as well as words and phrases that may be inappropriate. If there are any questions or concerns please feel free to contact the dictating provider for clarification.) documented in this encounter [facility] 10-20-2024 Note Formatting of this n ote might be different from the original. Care Management Progress Note Pt remains on 2E. Endo, ID, gen surg, and gastro following. Biliary drain in place, culture in process. Receiving IV ATB. Fecal occult stool positive. Discharge plan is back to [facility] when medically ready. He is a bedhold and will not need auth to return unless he goes back as skilled. manager building to follow and assist as needed. Length of Stay (Days): 2 GMLOS: 3.5 [facility] 10-20-2024 Note Formatting of this n ote might be different from the original. Care Management Progress Note Pt remains on 2E. Endo, ID, gen surg, and gastro following. Biliary drain in place, culture in process. Receiving IV ATB. Fecal occult stool positive. Discharge plan is back to [facility] when medically ready. He is a bedhold and will not need auth to return unless he goes back as skilled. manager building to follow and assist as needed. Length of Stay (Days): 2 GMLOS: 3.5 [facility] 10-20-2024 Note Problem: Potential f or Compromised Skin Integrity Goal: Skin Integrity is Maintained or Improved Outcome: Progressing Problem: Urinary Incontinence Goal: Perineal skin integrity is maintained or improved Outcome: Progressing [facility] 10-20-2024 Plan of care note Problem: Potential for Compromised Skin Integrity Goal: Skin Integrity is Maintained or Improved Outcome: Progressing Problem: Urinary Incontinence Goal: Perineal skin integrity is maintained or improved Outcome: Progressing [facility] 10-20-2024 Nurse Note Notified Lisa Lopes APRN and Dr. Thomas regarding patients BS. New orders placed. [facility] 10-20-2024 Note Formatting of this n ote might be different from the original. Sent updated notes to return back to [facility] via [facility] per TCC request. Await review and response regarding ability to accept. TCC notified. [facility] 10-20-2024 Note Formatting of this n ote might be different from the original. Sent updated notes to return back to [facility] via [facility] per TCC request. Await review and response regarding ability to accept. TCC notified. [facility] 10-19-2024 Telephone encounter Note Needs to be seen for follow up with any provider, will need ECF to arrange transportation so that patient can be seen in office ans no longer available to manage over the phone [facility] 10-19-2024 Miscellaneous Notes Needs to be seen for follow up with any provider, will need ECF to arrange transportation so that patient can be seen in office ans no longer available to manage over the phone documented in this encounter [facility] 10-19-2024 Note Formatting of this n ote might be different from the original. Referral placed to return back to [facility] via [facility] per TCC request. Await review and response regarding ability to accept. TCC notified. [facility] 10-19-2024 Note Formatting of this n ote might be different from the original. Referral placed to return back to [facility] via [facility] per TCC request. Await review and response regarding ability to accept. TCC notified. [facility] 10-19-2024 Note Referral placed to r eturn back to [facility] via [facility] per TCC request. Await review and response regarding ability to accept. TCC notified. [facility] 10-19-2024 Note Formatting of this n ote might be different from the original. Care Managment Initial Assessment Date: 10/19/2024 Patient Name: Will Jacinto : 1965 Patient Information Source of Information: Patient Cognition/Language: WFL - Within Functional Limits Permission given to speak with patient scheduling representative/caregiver as indicated: Confirmation of Payer with patient/family: Payer Name: Golden: Confirmation of Primary Care Physician: Primary Caregiver: Other (Comment) (Facility staff) If assistance needed, confirmed caregiver ready, willing and able to care for patient at discharge: Confirmed with: Living Arrangements Current Residence: Number of Floors Number of Entry Steps: Bed/Bath Levels: Facility: [facility] Facility Name: [facility] Plan to Return: Yes Lives with: Other (Comment) (LTC at facility) Support Systems: Home care staff Activities of Daily Living Ambulation: Assistance Bathing/Dressing: Assistance Elimination/Continence/Toileting : Assistance Feeding: Independent Who Assists with Activities of Daily Living: Instrumental Activities of Daily Living Prescription Coverage: Yes Pharmacy Used: Facility pharmacy Medication Management: Medication dispenser Who assists with medication securing and setup?: Facility nurse Transportation/Shopping: Assistance Provider Transportation/Shopping Assistance Provider Name: Set up by facility Transportation Mode: Needs Assistance with Transportation at Discharge: Yes Meal Preparation: Assistance Provider Meal Prep Assistance Provider Name: Facility staff Laundry/Cleaning: Assistance Provider Laundry/Cleaning Assistance Provider Name: Facility staff Finances/Bill Paying: Assistance Provider Finances/Bill Payer Assistance Provider Name: Facility staff Communication: Independent Types of Care Services/Equipment Utilized Care Services: Dialysis Type: NA Durable Medical Equipment: Patient's Goal/Discharge Plan Patient expects to be discharged to: [facility] Discharge Planning Actions: Continue to follow Patient's Choice Rights and [employer] and Collaborative Relationships Disclosed as Indicated for Post-Acute Care: Interdisciplinary Team Engagement: Social Work Referral for: Additional Information: Pt admitted to for gall bladder inflammation. Met with pt at bedside, introduced self and explained role. Pt has insurance with RX coverage, active with PCP. He is a LTC resident at [facility] and would like to return to facility. Pt requires assistance with all ADLS. Requires a deedee for transfers. Tasked [employer] to send return referral to [facility]. Gen surg and ID following. Endocrinology consulted. Receiving IV ATB and fluids. NPO at this time. Pt to have biliary drain placed today. Fecal occult stool positive. Discharge plan will be to return to [facility] once medically ready. manager building to follow and assist as needed. Gill Brown RN [facility] 10-19-2024 Note Formatting of this n ote might be different from the original. Care Managment Initial Assessment Date: 10/19/2024 Patient Name: Will Jacinto : 1965 Patient Information Source of Information: Patient Cognition/Language: WFL - Within Functional Limits Permission given to speak with patient scheduling representative/caregiver as indicated: Confirmation of Payer with patient/family: Payer Name: : Confirmation of Primary Care Physician: Primary Caregiver: Other (Comment) (Facility staff) If assistance needed, confirmed caregiver ready, willing and able to care for patient at discharge: Confirmed with: Living Arrangements Current Residence: Number of Floors Number of Entry Steps: Bed/Bath Levels: Facility: [facility] Facility Name: [facility] Plan to Return: Yes Lives with: Other (Comment) (LTC at facility) Support Systems: Home care staff Activities of Daily Living Ambulation: Assistance Bathing/Dressing: Assistance Elimination/Continence/Toileting : Assistance Feeding: Independent Who Assists with Activities of Daily Living: Instrumental Activities of Daily Living Prescription Coverage: Yes Pharmacy Used: Facility pharmacy Medication Management: Medication dispenser Who assists with medication securing and setup?: Facility nurse Transportation/Shopping: Assistance Provider Transportation/Shopping Assistance Provider Name: Set up by facility Transportation Mode: Needs Assistance with Transportation at Discharge: Yes Meal Preparation: Assistance Provider Meal Prep Assistance Provider Name: Facility staff Laundry/Cleaning: Assistance Provider Laundry/Cleaning Assistance Provider Name: Facility staff Finances/Bill Paying: Assistance Provider Finances/Bill Payer Assistance Provider Name: Facility staff Communication: Independent Types of Care Services/Equipment Utilized Care Services: Dialysis Type: NA Durable Medical Equipment: Patient's Goal/Discharge Plan Patient expects to be discharged to: [facility] Discharge Planning Actions: Continue to follow Patient's Choice Rights and [employer] and Collaborative Relationships Disclosed as Indicated for Post-Acute Care: Interdisciplinary Team Engagement: Social Work Referral for: Additional Information: Pt admitted to for gall bladder inflammation. Met with pt at bedside, introduced self and explained role. Pt has insurance with RX coverage, active with PCP. He is a LTC resident at [facility] and would like to return to facility. Pt requires assistance with all ADLS. Requires a deedee for transfers. Tasked [facility] to send return referral to [facility]. Gen surg and ID following. Endocrinology consulted. Receiving IV ATB and fluids. NPO at this time. Pt to have biliary drain placed today. Fecal occult stool positive. Discharge plan will be to return to [facility] once medically ready. manager building to follow and assist as needed. Gill Brown RN [facility] 10-19-2024 Consult note Associated Order (s): IP CONSULT TO ENDOCRINOLOGY Department of Internal Medicine Division of Endocrinology, Diabetes, & Metabolism Endocrinology Note Patient Name: Will Jacinto : 1965 AGE: 58 y.o. [facility]: [facility] A Admission Date: 10/18/2024 Visit Date: 10/19/2024 Reason for Endocrine Consult: IDDM on u500 Provider/Team Requesting Consult: Shwana Estrada PCP: Jared Guzman Outpt District Sales Coordinator: Yes - Dr Lee- VV 10/27/2023 ASSESSMENT: DM 2 with hyperglycemia Insulin resistance Acute Cholecyctitis Abdominal pain PLAN: Initiate u500 insulin 65 units with meals Increase humalog to 44 units BID One time lantus 50 units dose insulin given this afternoon as glucose levels have been increasing all day and he is is now eating Initiate regular insulin high dose sliding scale ICU goal <180 GMF goal <150 POCT BG ACHS Hypoglycemia management per protocol Carb controlled diet ANTICIPATED ENDOCRINE HOME GOING RECOMMENDATIONS: Optimized for Discharge from Endocrine standpoint: Yes Home Going Endocrine Rx Recommendations-- Return to u500 130 units 3 times day with meals Return to lantus 47 units bid Outpt Follow Up-- Dr lee or SUPERVISOR [employer] as available - message sent SUBJECTIVE/HPI: CHIEF COMPLAINT: Chief Complaint Patient presents with Abdominal Pain Pt presents to er from [facility]. Pt presents with abd pain, diarrhea, chest pain. Pt presents aox4 speaking in full and complete sentences. Chest Pain Nausea Presented to ED after abdominal pain that started on Wednesday evening (10/17/2024) Found to have Acute Cholecyctitis that needs to be managed medically, patient is on u500 units at [facility] Type of DM: 2 Onset of DM: unsure Home DM Medication Regimen: u500 per pen 130 units tidac, Lantus 47 units bid DM control (last A1c/glucose data): Lab Results Component Value Date HGBA1C 6.9 (H) 10/19/2024 Has been in F since 2017, Staff manages his glucose levels with finger sticks Staff administers his u500 insulin He received insulin from pens He eats 3 meals daily He does not exercise 10/19/2024- Glucose levels as below He has been cleared for liquid diety and tolerated withput any problems Has been nauseated but since he ate this has been relieved, Pain is controlled Drain to abdomen Glucose Date/Time Value Ref Range Status 10/19/2024 11:56 AM 336 (H) 70 - 100 mg/dL Final 10/19/2024 07:36 AM 299 (H) 70 - 100 mg/dL Final 10/19/2024 03:36 AM 207 (H) 70 - 100 mg/dL Final 10/18/2024 10:21 PM 136 (H) 70 - 100 mg/dL Final 01/27/2024 06:44 PM 143 (H) 70 - 100 mg/dL Final 01/26/2024 10:06 PM 101 (H) 70 - 100 mg/dL Final Review of Systems Constitutional: Negative for activity change, appetite change and unexpected weight change. Gastrointestinal: Negative for diarrhea, nausea and vomiting. Endocrine: Negative for polydipsia, polyphagia and polyuria. Genitourinary: Negative for dysuria. Skin: Negative for color change, pallor and wound. ROS negative except for those mentioned in HPI. OBJECTIVE: Vitals: 10/18/24 2104 10/19/24 0334 10/19/24 1335 10/19/24 1358 BP: 114/66 149/89 140/83 138/79 BP Location: Right arm Right arm Patient Position: Lying Pulse: 94 98 103 102 Resp: 24 Temp: 36.7 C (98 F) TempSrc: Temporal SpO2: 96% 93% 99% 98% Weight: (!) 320 lb (145 kg) Height: 5' 6" (1.676 m) Physical Exam Vitals reviewed. Constitutional: General: He is not in acute distress. Appearance: Normal appearance. He is obese. He is ill-appearing. HENT: Head: Normocephalic and atraumatic. Left Ear: External ear normal. Nose: Nose normal. Mouth/Throat: Mouth: Mucous membranes are moist. Cardiovascular: Rate and Rhythm: Normal rate and regular rhythm. Pulses: Normal pulses. Pulmonary: Effort: Pulmonary effort is normal. No respiratory distress. Musculoskeletal: General: Normal range of motion. Skin: General: Skin is warm and dry. Neurological: General: No focal deficit present. Mental Status: He is alert. Psychiatric: Mood and Affect: Mood normal. Behavior: Behavior normal. 24 hour intake/output: Intake/Output Summary (Last 24 hours) at 10/19/2024 1402 Last data filed at 10/18/20242103 Gross per 24 hour Intake 75 ml Output -- Net 75 ml Diet: NPO diet with enteral medications Medications (as per EMR): HomeMeds: Current Outpatient Medications Medication Instructions amLODIPine (NORVASC) 10 mg, Oral, Daily ARIPiprazole (Abilify) 10 MG tablet Every 24 hours aspirin 81 MG EC tablet 1 tablet, Daily atorvastatin (Lipitor) 10 MG tablet 1 tablet, Daily bisacodyl (DULCOLAX) 5 mg, 2 times daily PRN carvedilol (COREG) 25 mg, Oral, 2 times daily with meals ferrous sulfate 325 mg, Oral, Daily with breakfast FLUoxetine (PROZAC) 40 mg, Daily gabapentin (NEURONTIN) 100 mg, 2 times daily HumuLIN R 130 Units, 3 times daily hydrALAZINE (APRESOLINE) 25 mg, 3 times daily insulin glargine (LANTUS) 47 Units, 2 times daily insulin regular (HUMULIN R U-500) 90 Units, SubCUTAneous, Daily before lunch insulin regular (HUMULIN R U-500) 120 Units, SubCUTAneous, Daily before breakfast insulin regular (HUMULIN R U-500) 100 Units, SubCUTAneous, Daily before dinner lisinopril 20 mg, Oral, Daily magnesium hydroxide (Milk of Magnesia) 400 MG/5ML suspension 30 mL, Oral, Nightly megestrol (Megace) 20 MG tablet 1 tablet, 2 times daily melatonin 10 mg, Nightly PRN metoclopramide (REGLAN) 10 mg, Oral, 4 times daily before meals & nightly Multiple Vitamin (multivitamin) capsule 1 capsule, Daily pantoprazole (PROTONIX) 40 mg polyethylene glycol (PEG) 3350 (GLYCOLAX) 17 g, Daily torsemide (DEMADEX) 10 mg, Oral, Daily Scheduled Meds:amLODIPine, 10 mg, Oral, Daily ARIPiprazole, 10 mg, Oral, Daily aspirin, 81 mg, Oral, Daily atorvastatin, 10 mg, Oral, Daily carvedilol, 25 mg, Oral, BID WC ferrous sulfate, 325 mg, Oral, Daily with breakfast FLUoxetine, 40 mg, Oral, Daily gabapentin, 100 mg, Oral, BID hydrALAZINE, 25 mg, Oral, TID influenza, 0.5 mL, IntraMUSCular, Prior to discharge insulin glargine, 45 Units, SubCUTAneous, BID insulin lispro, 0-12 Units, SubCUTAneous, 4x daily AC & HS magnesium hydroxide, 30 mL, Oral, Nightly [Held by provider] metoclopramide, 10 mg, Oral, 4x daily AC & HS pantoprazole (ProtoNix) 40 mg in sodium chloride (PF) 0.9 % 10 mL injection, 40 mg, IntraVENous, BID piperacillin-tazobactam, 3,375 mg, IntraVENous, q8h sodium chloride 0.9%, 10 mL, IntraVENous, 2 times per day [Held by provider] torsemide, 10 mg, Oral, Daily Continuous Infusions:lactated Ringer's, 50 mL/hr, Last Rate: 50 mL/hr (10/19/24 1222) PRN Meds:PRN medications: acetaminophen OR acetaminophen, bisacodyl, dextrose, dextrose, fentaNYL, glucagon (rDNA), glucose, HYDROmorphone, ipratropium-albuterol, lidocaine PF, Melatonin, midazolam, naloxone, ondansetron ODT OR ondansetron, sodium chloride, sodium chloride 0.9% Diagnostic Workup: I reviewed pertinent Laboratory results, Radiographic results, and Other Clinical Notes at the time of today's encounter. Labs: No components found for: LABA1C No components found for: "EAG" Lab Results Component Value Date NA 135 (L) 10/19/2024 K 3.6 10/19/2024 CL 102 10/19/2024 CO2 22 10/19/2024 BUN 32 (H) 10/19/2024 CREATININE 1.15 10/19/2024 GLUCOSE 223 (H) 10/19/2024 CALCIUM 8.9 10/19/2024 Lab Results Component Value Date CHLPL 125 08/29/2020 Lab Results Component Value Date TRIG 190 08/29/2020 Lab Results Component Value Date HDL 31 (A) 08/29/2020 Lab Results Component Value Date LDLCALC 56 08/29/2020 Lab Results Component Value Date VLDL 38 08/29/2020 No results found for: CHOLHDLRATIO No results found for: [id number] Lab Results Component Value Date TSH 1.037 12/31/2023 Radiology reportsas per the Radiologist Radiology: POCT glucose meter Result Date: 10/19/2024 Performed by: [facility], [address] [place] [id number] CLIA ID: [id number] POCT glucose meter Result Date: 10/19/2024 Performed by: [facility], [address] [facility] [address] CLIA ID: [id number] POCT glucose meter Result Date: 10/19/2024 Performed by: [facility], [address] [facility] [address] CLIA ID: [id number] ECG 12 lead Sinus rhythm Left ventricular hypertrophy Anterior Q waves, possibly due to LVH Electronically Signed On 10-18-2024 23:06:53 EST by Sunitha Borja POCT glucose meter Result Date: 10/18/2024 [facility]formed by: [facility], [address] [facility] [address] CLIA ID: [id number] US abdomen limited Result Date: 10/18/2024 Patient Name: WILL JACINTO : 1965 Exam Date/Time: 10/18/2024 19:36 Procedure: US ABDOMEN LIMITED Ordering Provider: WOODALL FELIX Reason For Exam: possible acute cholecystitis ULTRASOUND OF RIGHT UPPER QUADRANT CLINICAL INDICATION: possible acute cholecystitis TECHNIQUE: Real-time ultrasound of the right upper quadrant of the abdomen. COMPARISON: Ultrasound abdomen Limited, October,; CT abdomen and pelvis, October,. FINDINGS: Gallbladder distended and contains sludge and shadowing calculi. Gallbladder wall thickened measuring up to 6 mm, with probable mural edema and trace pericholecystic fluid Intra-and extrahepatic bile ducts are of normal caliber. Positive sonographic Caldwell's sign. Liver suboptimally visualized without focal abnormalities. Right kidney measures 12.8 cm in longest dimension. Approximately 1 cm, hyperechoic and nonshadowing focus in the lower pole region not appreciated on comparison CT. No significant hydronephrosis. Pancreas not adequately visualized due to overlying bowel gas. 1. Cholestasis, cholelithiasis, gallbladder wall thickening, with probable mural edema and trace pericholecystic fluid, as well as positive sonographic Caldwell's sign, suspicious for postinflammatory change, including acute cholecystitis. Clinical correlation and follow-up as indicated. Report Dictated on Electronically Signed By: Joel Haddad MD Electronically Signed Date/Time: 10/18/2024 8:[address] abdomen pelvis w contrast Result Date: 10/18/2024 Patient Name: WILL JACINTO : 1965 Exam Date/Time: 10/18/2024 17:21 Procedure: CT ABDOMEN PELVIS W CONTRAST Ordering Provider: WOODALL FELIX Reason For Exam: Abdominal pain and distention with vomiting Indication: Abdominal pain vomiting. FINDINGS: Unenhanced abdomen pelvis with 75 mL Isovue-370 performed. Dose reduction and automated exposure control utilized. No free air. Distended stomach with air-fluid level. Bowel otherwise nondistended. Limited bowel assessment, lack of oral contrast. No convincing pneumatosis or abscess. Appendix not confidently seen. The gallbladder appears markedly distended with some suspected wall edema within limits of the study including artifact from motion, crisscross artifact. No convincing active disease of liver, the pancreas, spleen kidneys, adrenals, urinary bladder. No adenopathy. No definite aneurysm. No spinal compression. Distended gallbladder with suspected gallbladder wall edema concerning for acute cholecystitis. Distended stomach with air-fluid level may be related. Please correlate clinically. Follow-up recommended. CTR Dr Woodall. Report Dictated on Electronically Signed By: Javy Urias MD Electronically Signed Date/Time: 10/18/2024 7:[address] chest angiogram w and/or wo IV contrast Result Date: 10/18/2024 Patient Name: WILL JACINTO : 1965 Exam Date/Time: 10/18/2024 17:20 Procedure: CT CHEST ANGIOGRAM W AND/OR WO IV CONTRAST Ordering Provider: WOODALL FELIX Reason For Exam: Chest pain, shortness of breath, rule out pulmonary balloon History: Chest discomfort. Comparison: 06/28/2023 Findings: Dose reduction was employed with automated exposure control. Enhanced imaging of the chest was performed with 1 mm slices from neck to upper abdomen. 75 cc isovue 370 utilized. Additional images: 3-D imaging created and reviewed on independent platform for better detection of pathology. Exam is very limited due to severe motion artifact. Airway:Grossly patent. Mediastinum and great vessels: Limited due to motion. No large central PE visualized. Coronary arteries:No significant calcification. .No convincing emergent adenopathy within limits of the study. LUNGS:No convincing major volume loss. Very limited. Stable nodule right lung approximately 8mm; limited assessment due to artifact. Spine: No convincing acute or occult process.. Upper abdomen: Distended stomach with air-fluid level. Significance uncertain.. Impression:Very limited due to motion.. Consider repeat exam or VQ scan for persistent symptoms. Note made of distended stomach with air-fluid level. 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 other toe(s), unspecified side ([facility]) Anxiety disorder Bipolar 1 disorder ([facility]) Blood circulation, collateral Cellulitis chronic L lower leg COVID 12/08/2021 Depression Diabetes mellitus ([facility]) Type II, on insulin Disease of blood and blood forming organ Endometrial carcinoma ([facility]) 11/25/2020 Endometrial hyperplasia Foot ulcer ([facility]) Hx of blood clots RLE prior to amputation Hyperlipidemia Hypertension Lymphedema 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, RLE Morbidly obese ([facility]) Muscle weakness Osteomyelitis ([facility]) Osteomyelitis ([facility]) 2019 RLE Other lack of coordination Other specified soft tissue disorders Other symbolic dysfunctions Schizophrenia ([facility]) Sleep apnea no CPAP Venous insufficiency Past Surgical History: Past Surgical History: Procedure Laterality Date ABCESS DRAINAGE Right 09/09/2018 FOOT; ACH COLONOSCOPY 09/19/[address] Hyde DILATION AND CURETTAGE OF UTERUS 05/18/2019 HYSTEROSCOPY 12/23/2021 LEG AMPUTATION THROUGH KNEE Right 06/16/2019 UPPER GASTROINTESTINAL ENDOSCOPY N/A 06/29/2023 Dr Sergio Sibley at [facility]; no specimens WISDOM TOOTH EXTRACTION Allergy(ies): No Known Allergies Family History: Family History Problem Relation Name Age of Onset No Known Problems Mother No Known Problems Father Social History: Social History Tobacco Use Smoking status: Never Smokeless tobacco: Never Vaping Use Vaping status: Never Used Substance Use Topics Alcohol use: No Drug use: Never Portions of the information within this encounter were entered using an electronic dictation system. Best attempts were made to edit/proofread the information prior to note completion. Despite the review of information, some errors may remain. If there are questions related to the information contained within the note please contact the signing physician directly. I spent 75 minutes with the pt which involved coordination of care, medical evaluation, review of records, and/or counseling of the pt regarding his/her condition/disease state/prognosis on the date of this note. Cosigned by Geronimo Lee MD at 10/20/2024 1:24 PM EST [facility] 10-19-2024 Consult note Associated Order (s): IP CONSULT TO INFECTIOUS DISEASES Images from the original note were not included. [facility] - Infectious Diseases Attending Consult Note Reason for Consult: Sepsis, acute cholecystitis. History of Present Illness: 58 y/o male was [facility] 10[facility]18/24 from [facility] with abdominal pain, nausea, vomiting, chest pain since 10/16/24; he characterized his pain as persistent, mainly in the middle and on right side of abdomen, rated as 6/10; denied fever, chill, dysuria; in ED, he was afebrile but tachycardic (P 93), CT abdomen showed distended gallbladder with suspected gallbladder wall edema, labs showed leukocytosis (25.9 k), lactic acidosis (2.2), ceftriaxone and metronidazole were given initially. He was seen, found him alert, laying on bed, c/o feeling sick with firm abdomen with pain, thirsty, weakness, he mentioned about similar symptoms in January of this year-which were resolved on its own, he appeared ill. He has h/o DM, HTN, Lymphedema, endometrial cancer, DVT, Morbid obesity disorder. He was examined; notes, labs, imaging were reviewed; treatment plan was discussed; clinical informations were documented in electronic record. 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 other toe(s), unspecified side (HCC) Anxiety disorder Bipolar 1 disorder (HCC) Blood circulation, collateral Cellulitis chronic L lower leg COVID 12/08/2021 Depression Diabetes mellitus (HCC) Type II, on insulin Disease of blood and blood forming organ Endometrial carcinoma (HCC) 11/25/2020 Endometrial hyperplasia Foot ulcer (HCC) Hx of blood clots RLE prior to amputation Hyperlipidemia Hypertension Lymphedema 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; no specimens WISDOM TOOTH EXTRACTION Current Medications: Current Facility-Administered Medications Medication Dose Route Frequency Provider Last Rate Last Admin acetaminophen (Tylenol) tablet 650 mg 650 mg Oral q6h PRN Grace Ackerman MD Or acetaminophen (Tylenol) suppository 650 mg 650 mg Rectal q6h PRN Grace Ackerman MD amLODIPine (Norvasc) tablet 10 mg 10 mg Oral Daily Grace Ackerman MD 10 mg at 10/19/24 0947 ARIPiprazole (Abilify) tablet 10 mg 10 mg Oral Daily Grace Ackerman MD 10 mg at 10/19/24 0947 aspirin EC tablet 81 mg 81 mg Oral Daily Grace Ackerman MD atorvastatin (Lipitor) tablet 10 mg 10 mg Oral Daily Grace Ackerman MD 10 mg at 10/19/24 0947 bisacodyl (Dulcolax) EC tablet 5 mg 5 mg Oral BID PRN Grace Ackerman MD carvedilol (Coreg) tablet 25 mg 25 mg Oral BID WC Grace Ackerman MD 25 mg at 10/19/24 09 dextrose 5 % infusion 100 mL/hr IntraVENous PRN Grace Ackerman MD dextrose 50 % solution 12.5 g 12.5 g IntraVENous PRN Grace Ackerman MD fentaNYL (Sublimaze) injection IntraVENous PRN Alfredito Baumann MD 50 mcg at 10/19/24 1350 ferrous sulfate tablet 325 mg 325 mg Oral Daily with breakfast Grace Ackerman MD 325 mg at 10/19/24 0946 FLUoxetine (PROzac) capsule 40 mg 40 mg Oral Daily Grace Ackerman MD 40 mg at 10/19/24 0946 gabapentin (Neurontin) capsule 100 mg 100 mg Oral BID Grace Ackerman MD 100 mg at 10/19/24 0946 glucagon (human recombinant) injection 1 mg 1 mg IntraMUSCular PRN Grace Ackerman MD glucose oral gel 15 g 15 g Oral PRN Graec Ackerman MD hydrALAZINE (Apresoline) tablet 25 mg 25 mg Oral TID Grace Ackerman MD 25 mg at 10/19/24 0947 HYDROmorphone (Dilaudid) injection 0.25 mg 0.25 mg IntraVENous q4h PRN Álvaro Thomas MD influenza vaccine tiss-cult subunt (Flucelvax) STANDARD-DOSE injection 0.5 mL 0.5 mL IntraMUSCular Prior to discharge Grace Ackerman MD insulin glargine (Lantus) injection 45 Units 45 Units SubCUTAneous BID Grace Ackerman MD Insulin Lispro (Humalog) injection 0-12 Units 0-12 Units SubCUTAneous 4x daily AC & HS Grace Ackerman MD 8 Units at 10/19/24 1226 ipratropium-albuterol (Duo-Neb) 0.5-2.5 mg/3 mL nebulizer solution 3 mL 3 mL Nebulization 4x daily PRN Grace Ackerman MD 3 mL at 10/18/24 2301 lactated Ringer's infusion 50 mL/hr IntraVENous Continuous Álvaro Thomas MD 50 mL/hr at 10/19/24 1222 50 mL/hr at 10/19/24 1222 lidocaine PF (Xylocaine) 2 % injection Infiltration PRN Alfredito Baumann MD 5 mL at 10/19/24 1350 magnesium hydroxide (Milk of Magnesia) 400 MG/5ML suspension 30 mL 30 mL Oral Nightly Grace Ackerman MD Melatonin disintegrating tablet 10 mg 10 mg Oral Nightly PRN Grace Ackerman MD 10 mg at 10/18/24 2223 [Held by provider] metoclopramide (Reglan) tablet 10 mg 10 mg Oral 4x daily AC & HS Grace Ackerman MD 10 mg at 10/19/24 0631 midazolam (Versed) injection IntraVENous PRN Alfredito Baumann MD 1 mg at 10/19/24 1350 naloxone (Narcan) injection 0.4 mg 0.4 mg IntraVENous q5 min PRN Álvaro Thomas MD ondansetron ODT (Zofran-ODT) disintegrating tablet 4 mg 4 mg Oral q8h PRN Grace Ackerman MD Or ondansetron (Zofran) injection 4 mg 4 mg IntraVENous q6h PRN Grace Ackerman MD 4 mg at 10/19/24 0041 pantoprazole (ProtoNix) 40 mg in sodium chloride (PF) 0.9 % 10 mL injection 40 mg IntraVENous BID Grace Ackerman MD 40 mg at 10/19/24 0631 piperacillin-tazobactam (Zosyn) 3,375 mg in sodium chloride 0.9 % 50 mL IVPB Mini-Bag Plus 3,375 mg IntraVENous q8h Grace Ackerman MD Stopped at 10/19/24 1300 sodium chloride 0.9 % infusion 5-250 mL/hr IntraVENous PRN Grace Ackerman MD sodium chloride 0.9% (NS) flush 10 mL 10 mL IntraVENous 2 times per day Grace Ackerman MD 10 mL at 10/18/24 2227 sodium chloride 0.9% (NS) flush 10 mL 10 mL IntraVENous PRN Grace Ackerman MD [Held by provider] torsemide (Demadex) tablet 10 mg 10 mg Oral Daily Grace Ackerman MD 10 mg at 10/19/24 0946 Allergies: No Known Allergies Social History: Social History Socioeconomic History Marital status: Single Spouse name: Not on file Number of children: Not on file Years of education: Not on file Highest education level: Not on file Occupational History Not on file Tobacco Use Smoking status: Never Smokeless tobacco: Never Vaping Use Vaping status: Never Used Substance and Sexual Activity Alcohol use: No Drug use: Never Sexual activity: Not on file Other Topics Concern Not on file Social History Narrative Not on file 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 Health Financial Resource Strain: Not on file Food Insecurity: No Food Insecurity (10/19/2024) Hunger Vital Sign Worried About Running Out of Food in the Last Year: Never true Ran Out of Food in the Last Year: Never true Transportation Needs: No Transportation Needs (10/19/2024) PRAPARE - Transportation Lack of Transportation (Medical): No Lack of Transportation (Non-Medical): No Physical Activity: Not on file Stress: No Stress Concern Present (10/19/2024) [employer] [employer] - Occupational Stress Questionnaire Feeling of Stress : Only a little Social Connections: Unknown (10/19/2024) Social Connection and Isolation Panel [NHANES] Frequency of Communication with Friends and Family: Three times a week Frequency of Social Gatherings with Friends and Family: Once a week Attends [employer] Services: 1 to 4 times per year Active Member of Clubs or Organizations: No Attends Club or Organization Meetings: Never Marital Status: Patient declined Intimate Partner Violence: Not At Risk (10/19/2024) Humiliation, Afraid, Rape, and Kick questionnaire Fear of Current or Ex-Partner: No Emotionally Abused: No Physically Abused: No Sexually Abused: No Housing Stability: Low Risk (10/19/2024) Housing Stability Vital Sign Unable to Pay for Housing in the Last Year: No Number of Times Moved in the Last Year: 0 Homeless in the Last Year: No Family History: Family History Problem Relation Name Age of Onset No Known Problems Mother No Known Problems Father Review of Systems: Review of Systems Constitutional: Negative for chills and fever. HENT: Negative for ear pain and sore throat. Eyes: Negative for pain and visual disturbance. Respiratory: Negative for cough and shortness of breath. Cardiovascular: Positive for chest pain. Negative for palpitations. Gastrointestinal: Positive for abdominal pain, nausea and vomiting. Genitourinary: Negative for dysuria and hematuria. Musculoskeletal: Negative for arthralgias and back pain. Skin: Negative for color change and rash. Neurological: Negative for seizures and syncope. All other systems reviewed and are negative. Vitals: Patient Vitals for the past 24 hrs: BP Temp Temp src Pulse Resp SpO2 Height Weight 10/19/24 1335 140/83 -- -- 103 -- 99 % -- -- 10/19/24 0334 149/89 -- -- 98 -- 93 % -- -- 10/18/24 2104 114/66 36.7 C (98 F) Temporal 94 24 96 % 1.676 m (5' 6") (!) 145 kg (320 lb) 10/18/24 2103 114/66 36.7 C (98 F) Temporal 94 24 96 % -- -- 10/18/242001 130/63 -- -- 92 -- (!) 90 % -- -- 10/18/24 1923 131/62 -- -- 92 18 (!) 92 % -- -- 10/18/24 1852 134/63 -- -- 90 18 95 % -- -- 10/18/24 1633 (!) 152/67 36.9 C (98.4 F) Oral 93 20 95 % 1.676 m (5' 6") 132 kg (290 lb) Physical Exam: Physical Exam Vitals and nursing note reviewed. Constitutional: General: He is ill-appearing. Appearance: He is well-developed. HENT: Head: Normocephalic and atraumatic. Eyes: Conjunctiva/sclera: Conjunctivae normal. Cardiovascular: Rate and Rhythm: Normal rate and regular rhythm. Heart sounds: No murmur heard. Pulmonary: Effort: Pulmonary effort is normal. No respiratory distress. Breath sounds: Normal breath sounds. Abdominal: General: There is distension. Palpations: Abdomen is soft. Tenderness: There is abdominal tenderness (tender epigastric and right mid abdomen). Musculoskeletal: General: No swelling. Cervical back: Neck supple. Comments: Right lower extremity amputation (AKA) Skin: General: Skin is warm and dry. Capillary Refill: Capillary refill takes less than 2 seconds. Neurological: Mental Status: He is alert. Psychiatric: Mood and Affect: Mood normal. Labs: Recent Labs 10/18/24 1640 10/19/24 0343 NA 137 135* K 4.1 3.6 CL 103 102 CO2 21* 22 BUN 24* 32* CREATININE 1.16 1.15 GLUCOSE 226* 223* CALCIUM 9.0 8.9 PROT 6.7 6.5 BILITOT 0.7 0.8 ALKPHOS 133 151 AST 50* 50* ALT 67 83 Recent Labs 10/18/24 1640 10/19/24 0343 WBC 25.9* 21.8* HGB 11.6* 10.9* HCT 36.8 34.4 PLT 373 339 LYMPHOPCT 2* 10* MONOPCT 6 1* Micro: No results for input(s): "COVID19" in the last 72 hours. 10/19/2024 14044412/20/2023 1415 Culture, Aerobic Bacteria with Gram Stain [[id number]] Bile from Gallbladder In process Component Value No component results 10/19/2024 16499812/20/2023 1415 Aerobic and Anaerobic Culture with Stain [[id number]] Bile from Gallbladder In process Component Value No component results 10/19/2024 63132312/20/2023 1415 Anaerobic culture [[id number]] Bile from Gallbladder In process Component Value No component results 10/19/2024 33980912/20/2023 0207 Occult blood, stool [[id number]] (Abnormal) Stool from Per Rectum Final result Component Value Fecal occult blood Positive Abnormal 10/18/2024 90772912/20/2023 0022 Urine culture [[id number]] Urine, Clean Catch In process Component Value No component results Lines: PIV site looked ok Radiography/Echo/Other: US guided percutaneous peritoneal or retroperitoneal fluid collection drainage [[id number]] Resulted: 10/19/24 1334 Order Status: Sent Updated: 10/19/24 1405 US abdomen limited [[id number]] Collected: 10/18/242011 Order Status: Completed Updated: 10/18/242021 Narrative: [facility] 1965 [id number] Exam Date/Time: 10/18/2024 19:36 Procedure: US ABDOMEN LIMITED Ordering Provider: WOODALL FELIX Reason For Exam: possible acute cholecystitis ULTRASOUND OF RIGHT UPPER QUADRANT CLINICAL INDICATION: possible acute cholecystitis TECHNIQUE: Real-time ultrasound of the right upper quadrant of the abdomen. COMPARISON: Ultrasound abdomen Limited, October,; CT abdomen and pelvis, October,. FINDINGS: Gallbladder distended and contains sludge and shadowing calculi. Gallbladder wall thickened measuring up to 6 mm, with probable mural edema and trace pericholecystic fluid Intra-and extrahepatic bile ducts are of normal caliber. Positive sonographic Caldwell's sign. Liver suboptimally visualized without focal abnormalities. Right kidney measures 12.8 cm in longest dimension. Approximately 1 cm, hyperechoic and nonshadowing focus in the lower pole region not appreciated on comparison CT. No significant hydronephrosis. Pancreas not adequately visualized due to overlying bowel gas. Impression: 1. Cholestasis, cholelithiasis, gallbladder wall thickening, with probable mural edema and trace pericholecystic fluid, as well as positive sonographic Caldwell's sign, suspicious for postinflammatory change, including acute cholecystitis. Clinical correlation and follow-up as indicated. Report Dictated on Electronically Signed By: Joel Haddad MD Electronically Signed Date/Time: 10/18/2024 8:[address] abdomen pelvis w contrast [[id number]] Collected: 10/18/241904 Order Status: Completed Updated: 10/18/241913 Narrative: Patient Name: WLIL JACINTO : 1965 Exam Date/Time: 10/18/2024 17:21 Procedure: CT ABDOMEN PELVIS W CONTRAST Ordering Provider: WOODALL FELIX Reason For Exam: Abdominal pain and distention with vomiting Indication: Abdominal pain vomiting. FINDINGS: Unenhanced abdomen pelvis with 75 mL Isovue-370 performed. Dose reduction and automated exposure control utilized. No free air. Distended stomach with air-fluid level. Bowel otherwise nondistended. Limited bowel assessment, lack of oral contrast. No convincing pneumatosis or abscess. Appendix not confidently seen. The gallbladder appears markedly distended with some suspected wall edema within limits of the study including artifact from motion, crisscross artifact. No convincing active disease of liver, the pancreas, spleen kidneys, adrenals, urinary bladder. No adenopathy. No definite aneurysm. No spinal compression. Impression: Distended gallbladder with suspected gallbladder wall edema concerning for acute cholecystitis. Distended stomach with air-fluid level may be related. Please correlate clinically. Follow-up recommended. [facility] Dr Woodall. Report Dictated on Electronically Signed By: Javy Urias MD Electronically Signed Date/Time: 10/18/2024 7:[address] chest angiogram w and/or wo IV contrast [[id number]] Collected: 10/18/241856 Order Status: Completed Updated: 10/18/241912 Narrative: Patient Name: WILL JACINTO : 1965 [facility]#: [id number] Exam Date/Time: 10/18/2024 17:20 Procedure: CT CHEST ANGIOGRAM W AND/OR WO IV CONTRAST Ordering Provider: WOODALL FELIX Reason For Exam: Chest pain, shortness of breath, rule out pulmonary balloon History: Chest discomfort. Comparison: 06/28/2023 Findings: Dose reduction was employed with automated exposure control. Enhanced imaging of the chest was performed with 1 mm slices from neck to upper abdomen. 75 cc isovue 370 utilized. Additional images: 3-D imaging created and reviewed on independent platform for better detection of pathology. Exam is very limited due to severe motion artifact. Airway:Grossly patent. Mediastinum and great vessels: Limited due to motion. No large central PE visualized. Coronary arteries:No significant calcification. .No convincing emergent adenopathy within limits of the study. LUNGS:No convincing major volume loss. Very limited. Stable nodule right lung approximately 8mm; limited assessment due to artifact. Spine: No convincing acute or occult process.. Upper abdomen: Distended stomach with air-fluid level. Significance uncertain.. Impression: Impression:Very limited due to motion.. Consider repeat exam or VQ scan for persistent symptoms. Note made of distended stomach with air-fluid level. Report Dictated on Electronically Signed By: Javy Urias MD Electronically Signed Date/Time: 10/18/2024 7:05 PM EST Antimicrobials,Start/End Dates: Ceftr 10/18 Metro 10/18 Pip/tazo 10/19- Impression: Sepsis (tachycardia, leukocytosis, lactic acidosis). Acute cholecystitis. Leukocytosis. Type 2 diabetes. Bipolar disorder. 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 Morbid obesity disorder. Plan: Pt sick due to sepsis due to acute cholecystitis. He is afebrile but remained tachycardic (P 102-103) and with leukocytosis. Blood cxs were not drawn before administration of antimicrobials. Await percutaneous cholecystostomy drainage fluid cx result. Question of recurrent cholecystitis (had similar symptoms in January). Continue pip/tazo. Follow inflammatory markers. Needs to know whether he is on chronic use of testosterone. High level complexity medical decision making. Will follow. Thank you. At least total time of 75 minutes on this day of encounter spent on, but not limited to review of tests, medical records , complex history , review of external medical records, paper and electronic, counseling and education (patient, family member, caregiver), ordering medications, tests, and procedures, communication with other health care professions, independent interpretation of tests, care coordination, arrangement of outpatient antimicrobial therapy, post-hospitalization therapy and follow-up, and counseling for risks, benefits, and consideration of use of antimicrobials. [facility] 10-19-2024 Plan of care note Problem: Knowledge Deficit Goal: Patient/family/caregiver demonstrates understanding of disease process, treatment plan, medications, and discharge instructions Outcome: Progressing Problem: Knowledge Deficit Goal: Patient/family/caregiver demonstrates understanding of disease process, treatment plan, medications, and discharge instructions Outcome: Progressing Problem: Potential for Compromised Skin Integrity Goal: Nutritional status is improving Outcome: Progressing Problem: Urinary Incontinence Goal: Perineal skin integrity is maintained or improved Outcome: Progressing [facility] 10-19-2024 Consult note Associated Order (s): IP CONSULT TO GENERAL SURGERY Images from the original note were not included. Attending Attestation [facility] - Surgery [facility] Patient Name: Will Jacinto Date: 10/19/24 Patient seen and examined. Presents with RUQ pain for 2-3 days. Has had one prior episode. Denies nausea. Has had loose dark stools. New O2 requirement this admission. Has history of diabetes with complication requiring right lower extremity amputation. He states blood sugars have been >400 at his facility. Prior abdominal surgeries significant for hysterectomy. Has history of VTE in 2019, but not currently on blood thinning medication. Exam: Abdomen: Soft, TTP in RUQ, nondistended, exam limited by morbid obesity Assessment and Plan: 58 y.o. adult with RUQ pain Labs, notes and imaging reviewed CT, RUQ US and clinical exam consistent with acute cholecystitis Patient with uncontrolled blood sugars, new oxygen requirement, not appropriate for surgery at present Therefore, continue IV antibiotics and will obtain percutaneous cholecystostomy drainage Trial diet after drain placed Follow cultures of per ton drain Medical management per primary Surgery will follow This case had high medical decision making and case complexity with 75 minute total care time including chart review, care coordination and face to face encounter. The patient was seen and examined independently and relevant data reviewed by myself. A full chart review was performed. I personally interviewed the patient and performed an individual physical examination. In addition, I discussed the patient's condition and treatment options with them. I have also reviewed and agree with the past medical, family and social history and care plan unless otherwise noted. All of the patient's questions were answered. Lilo Rizo MD General Surgery Pager #[phone] 1:56 PM 10/19/2024 Department of General Surgery Consult PATIENT NAME: Will Jacinto DATE OF : 1965 ADMISSION DATE: 10/18/2024 4:21 PM TODAY'S DATE: 10/19/2024 Reason for Consult: Acute cholecystitis HISTORY OF PRESENT ILLNESS: The patient is a 58 y.o. adult who presents with upper abdominal pain. Patient states that he had onset of upper abdominal pain that started Wednesday evening. Patient notes that this occurred after eating a snack of peanut butter crackers and potato chips. He notes a similar episode this past January that resolved on its own. Patient notes that the entire abdomen feels distended. He notes several episodes of dark, loose stool as well. Patient denies fever/chills or nausea/vomiting. He resides at and notes that while oxygen has been needed since admission that he does not wear it at baseline. He states that his glucose has been running high, into the 500 range over the past several days. Patient notes continued abdominal pain and distention on examination this morning. He is aware of findings and operative risks and agrees that biliary drainage in the best course of action. PMH notable for DM, endometrial cancer, DVT, HTN, HLD, morbid obesity, JOHN, schizophrenia. Psh notable for hysteroscopy, D&C, colonoscopy. Fhx unknown. Patient denies OAC. US with cholestasis, cholelithiasis, wall thickening, with probable mural edema and trace pericholecystic fluid with (+)sonographic Caldwell sign. CT demonstrates distended gallbladder with suspected wall edema, distended stomach with air-fluid level. WBC 21.8, Hgb 10.9, bilirubin 0.8. VSS on 2L O2. Thoroughly reviewed the patient's medical history, family history, social history and review of systems with the patient today in the office. Please see medical record for pertinent positives. 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 other toe(s), unspecified side ([facility]) Anxiety disorder Bipolar 1 disorder ([facility]) Blood circulation, collateral Cellulitis chronic L lower leg COVID 12/08/2021 Depression Diabetes mellitus ([facility]) Type II, on insulin Disease of blood and blood forming organ Endometrial carcinoma ([facility]) 11/25/2020 Endometrial hyperplasia Foot ulcer ([facility]) Hx of blood clots RLE prior to amputation Hyperlipidemia Hypertension Lymphedema 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, RLE Morbidly obese ([facility]) Muscle weakness Osteomyelitis ([facility]) Osteomyelitis ([facility]) 2019 RLE Other lack of coordination Other specified soft tissue disorders Other symbolic dysfunctions Schizophrenia ([facility]) Sleep apnea no CPAP Venous insufficiency Past Surgical History: Past Surgical History: Procedure Laterality Date ABCESS DRAINAGE Right 09/09/2018 FOOT; ACH COLONOSCOPY 09/19/[address] Hyde DILATION AND CURETTAGE OF UTERUS 05/18/2019 HYSTEROSCOPY 12/23/2021 LEG AMPUTATION THROUGH KNEE Right 06/16/2019 UPPER GASTROINTESTINAL ENDOSCOPY N/A 06/29/2023 Dr Sergio Sibley at [facility]; no specimens WISDOM TOOTH EXTRACTION Current Medications: amLODIPine, 10 mg, Oral, Daily ARIPiprazole, 10 mg, Oral, Daily aspirin, 81 mg, Oral, Daily atorvastatin, 10 mg, Oral, Daily carvedilol, 25 mg, Oral, BID WC ferrous sulfate, 325 mg, Oral, Daily with breakfast FLUoxetine, 40 mg, Oral, Daily gabapentin, 100 mg, Oral, BID hydrALAZINE, 25 mg, Oral, TID influenza, 0.5 mL, IntraMUSCular, Prior to discharge insulin glargine, 45 Units, SubCUTAneous, BID insulin lispro, 0-12 Units, SubCUTAneous, 4x daily AC & HS magnesium hydroxide, 30 mL, Oral, Nightly [Held by provider] metoclopramide, 10 mg, Oral, 4x daily AC & HS pantoprazole (ProtoNix) 40 mg in sodium chloride (PF) 0.9 % 10 mL injection, 40 mg, IntraVENous, BID piperacillin-tazobactam, 3,375 mg, IntraVENous, q8h sodium chloride 0.9%, 10 mL, IntraVENous, 2 times per day [Held by provider] torsemide, 10 mg, Oral, Daily lactated Ringer's, 50 mL/hr PRN medications: acetaminophen OR acetaminophen, bisacodyl, dextrose, dextrose, glucagon (rDNA), glucose, HYDROmorphone, ipratropium-albuterol, Melatonin, naloxone, ondansetron ODT OR ondansetron, sodium chloride, sodium chloride 0.9% Allergies: Patient has no known allergies. Social History: Social History Socioeconomic History Marital status: Single Spouse name: Not on file Number of children: Not on file Years of education: Not on file Highest education level: Not on file Occupational History Not on file Tobacco Use Smoking status: Never Smokeless tobacco: Never Vaping Use Vaping status: Never Used Substance and Sexual Activity Alcohol use: No Drug use: Never Sexual activity: Not on file Other Topics Concern Not on file Social History Narrative Not on file 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 Health Financial Resource Strain: Not on file Food Insecurity: No Food Insecurity (10/19/2024) Hunger Vital Sign Worried About Running Out of Food in the Last Year: Never true Ran Out of Food in the Last Year: Never true Transportation Needs: No Transportation Needs (10/19/2024) PRAPARE - Transportation Lack of Transportation (Medical): No Lack of Transportation (Non-Medical): No Physical Activity: Not on file Stress: No Stress Concern Present (10/19/2024) [employer] [employer] - Occupational Stress Questionnaire Feeling of Stress : Only a little Social Connections: Unknown (10/19/2024) Social Connection and Isolation Panel [NHANES] Frequency of Communication with Friends and Family: Three times a week Frequency of Social Gatherings with Friends and Family: Once a week Attends [employer] Services: 1 to 4 times per year Active Member of Clubs or Organizations: No Attends Club or Organization Meetings: Never Marital Status: Patient declined Intimate Partner Violence: Not At Risk (10/19/2024) Humiliation, Afraid, Rape, and Kick questionnaire Fear of Current or Ex-Partner: No Emotionally Abused: No Physically Abused: No Sexually Abused: No Housing Stability: Low Risk (10/19/2024) Housing Stability Vital Sign Unable to Pay for Housing in the Last Year: No Number of Times Moved in the Last Year: 0 Homeless in the Last Year: No Family History: Family History Problem Relation Name Age of Onset No Known Problems Mother No Known Problems Father REVIEW OF SYSTEMS: CONSTITUTIONAL: Negative for fatigue, and unexpected weight change HENT: Negative for hearing loss, nosebleeds, sneezing, sore throat, trouble swallowing and voice change. RESPIRATORY: Negative for cough, SOB, and wheezing CARDIOVASCULAR: Negative for chest pains and palpatations GASTROINTESTINAL: Positive for abdominal pain, diarrhea, and melena. Negative for fever/chills, nausea/vomiting, hematochezia, or constipation GENITOURINARY: negative for dysuria, urgency, frequency, and difficulty urinating. SKIN: negative for rash ALLERGIC/IMMUNOLOGIC: Negative for immunocompromised state HEMATOLOGIC/LYMPHATIC: Negative for adenopathy. Does not bruise/bleed easily. NEUROLOGICAL: Negative for seizures and syncope * All other ROS reviewed see HPI for pertinent positives and negatives. PHYSICAL EXAM: VITALS: BP 149/89 (BP Location: Right arm) Pulse 98 Temp 36.7 C (98 F) (Temporal) Resp 24 Ht 5' 6" (1.676 m) Wt (!) 320 lb (145 kg) SpO2 93% BMI 51.65 kg/m 24HR INTAKE/OUTPUT: I/O last 3 completed shifts: In: 75 (0.5 mL/kg) [P.O.:25; IV Piggyback:50] Out: - (0 mL/kg) Weight: 145.1 kg No intake/output data recorded. CONSTITUTIONAL: Appears well nourished. No distress EYES: PERRL, conjunctiva normal ENT: Normocepalic,atraumatic, without obvious abnormality NECK: supple, symmetrical, trachea midline, no thyromegaly LUNGS: Resp effort easy and unlabored, breath sounds normal CARDIOVASCULAR: NO JVD, RRR, No murmur ABDOMEN: soft, distended, mild widespread tenderness, peritoneal signs absent, no masses palpated and hernia absent MUSCULOSKELETAL: Normal range of motion, no edema NEUROLOGIC: Mental Status Exam: Level of Alertness: alert Sensation globally intact PSYCHIATRIC: Oriented to person, place, and time. Speech is normal, mood appears normal SKIN: Warm, dry, and intact DATA: US abdomen limited Status: Final result Link to Procedure Log Procedure Log PACS Images Show images for US abdomen limited Study Result Narrative & Impression [facility] 1965 [id number] Exam Date/Time: 10/18/2024 19:36 Procedure: US ABDOMEN LIMITED Ordering Provider: WOODALL FELIX Reason For Exam: possible acute cholecystitis ULTRASOUND OF RIGHT UPPER QUADRANT CLINICAL INDICATION: possible acute cholecystitis TECHNIQUE: Real-time ultrasound of the right upper quadrant of the abdomen. COMPARISON: Ultrasound abdomen Limited, October,; CT abdomen and pelvis, October,. FINDINGS: Gallbladder distended and contains sludge and shadowing calculi. Gallbladder wall thickened measuring up to 6 mm, with probable mural edema and trace pericholecystic fluid Intra-and extrahepatic bile ducts are of normal caliber. Positive sonographic Caldwell's sign. Liver suboptimally visualized without focal abnormalities. Right kidney measures 12.8 cm in longest dimension. Approximately 1 cm, hyperechoic and nonshadowing focus in the lower pole region not appreciated on comparison CT. No significant hydronephrosis. Pancreas not adequately visualized due to overlying bowel gas. IMPRESSION: 1. Cholestasis, cholelithiasis, gallbladder wall thickening, with probable mural edema and trace pericholecystic fluid, as well as positive sonographic Caldwell's sign, suspicious for postinflammatory change, including acute cholecystitis. Clinical correlation and follow-up as indicated. Report Dictated on Electronically Signed By: Joel Haddad MD Electronically Signed Date/Time: 10/18/2024 8:21 PM EST Result History US abdomen limited (Order #[id number]) on 10/18/2024 - Order Result History Report US abdomen limited: Patient Communication Add Comments Not seen Breast Imaging Recommendations Maria Luisa Jacinto No recommendations exist for this order. Risk Scores No Tyrer-Cuzick assessment data. No Risk Considerations assessment data. No NCC HBOC Guidelines assessment data. No NCCN Caro assessment data. No Risk Explanation Tyrer-Cuzick 8 assessment data. No BRCAPRO assessment data. No Myriad risk assessment data. No Arian risk assessment data. No Anne risk assessment data. [facility] Request ID assessment data. [facility] windows server architect ID assessment data. Breast Cancer Risk Navigation Events None Signed by Signed Time Phone Pager Joel Haddad MD 10/18/2024 20:21 Exam Information Status Exam Begun Exam Ended Final 10/18/2024 19:36 10/18/2024 20:00 External Results Report Open External Results Report Encounter View Encounter Study Details Open Study Details Order Transmittal Tracking US abdomen limited (Order #[id number]) on 10/18/24 Order Report US abdomen limited (Order #[id number]) on 10/18/24 CT abdomen pelvis w contrast Status: Final result Link to Procedure Log Procedure Log Orders Requiring a Screening Form Procedure Order Status Order ID Accession Number Form Status CT abdomen pelvis w contrast Completed [id number] Created PACS Images Show images for CT abdomen pelvis w contrast Study Result Narrative & Impression Patient Name: WILL JACINTO : 1965 Exam Date/Time: 10/18/2024 17:21 Procedure: CT ABDOMEN PELVIS W CONTRAST Ordering Provider: WOODALL FELIX Reason For Exam: Abdominal pain and distention with vomiting Indication: Abdominal pain vomiting. FINDINGS: Unenhanced abdomen pelvis with 75 mL Isovue-370 performed. Dose reduction and automated exposure control utilized. No free air. Distended stomach with air-fluid level. Bowel otherwise nondistended. Limited bowel assessment, lack of oral contrast. No convincing pneumatosis or abscess. Appendix not confidently seen. The gallbladder appears markedly distended with some suspected wall edema within limits of the study including artifact from motion, crisscross artifact. No convincing active disease of liver, the pancreas, spleen kidneys, adrenals, urinary bladder. No adenopathy. No definite aneurysm. No spinal compression. IMPRESSION: Distended gallbladder with suspected gallbladder wall edema concerning for acute cholecystitis. Distended stomach with air-fluid level may be related. Please correlate clinically. Follow-up recommended. CTR Dr Woodall. Report Dictated on Electronically Signed By: Javy Urias MD Electronically Signed Date/Time: 10/18/2024 7:12 PM EST Result History CT abdomen pelvis w contrast (Order #[id number]) on 10/18/2024 - Order Result History Report CT abdomen pelvis w contrast: Patient Communication Add Comments Not seen Breast Imaging Recommendations Maria Luisa Jacinto No recommendations exist for this order. Risk Scores No Tyrer-Cuzick assessment data. No Risk Considerations assessment data. No NCC HBOC Guidelines assessment data. No NCCN Caro assessment data. No Risk Explanation Tyrer-Cuzick 8 assessment data. No BRCAPRO assessment data. No Myriad risk assessment data. No Arian risk assessment data. No Anne risk assessment data. No PROGRAMMING COORDINATOR Request ID assessment data. No PROGRAMMING COORDINATOR windows server architect ID assessment data. Breast Cancer Risk Navigation Events None Signed by Signed Time Phone Pager Javy Urias MD 10/18/2024 19:12 Exam Information Status Exam Begun Exam Ended Final 10/18/2024 17:21 10/18/2024 18:06 External Results Report Open External Results Report Encounter View Encounter Screening Form Questions No questions have been answered for this form. Study Details Open Study Details Order Transmittal Tracking CT abdomen pelvis w contrast (Order #[id number]) on 10/18/[address] abdomen pelvis w contrast (Order #[id number]) on 10/18/24 CBC: Recent Labs 10/18/24 1640 10/19/24 0343 WBC 25.9* 21.8* HGB 11.6* 10.9* HCT 36.8 34.4 PLT 373 339 BMP: Recent Labs 10/18/24 1640 10/19/24 0343 NA 137 135* K 4.1 3.6 CL 103 102 CO2 21* 22 BUN 24* 32* CREATININE 1.16 1.15 GLUCOSE 226* 223* Hepatic: Recent Labs 10/18/24 1640 10/19/24 0343 AST 50* 50* ALT 67 83 BILITOT 0.7 0.8 ALKPHOS 133 151 Mag: No results for input(s): "MG" in the last 72 hours. Phos: No results for input(s): "PHOS" in the last 72 hours. INR: No results for input(s): "INR" in the last 72 hours. IMPRESSION/RECOMMENDATIONS: Mr. Jacinto is a 58 y.o. M presenting with abdominal pain -US with cholestasis, cholelithiasis, wall thickening, with probable mural edema and trace pericholecystic fluid with (+)sonographic Caldwell sign -CT demonstrates distended gallbladder with suspected wall edema, distended stomach with air-fluid level -WBC 21.8, Hgb 10.9, bilirubin 0.8 -Glucose 336 -NPO -IV Zosyn -IVF -Biliary drain to be placed this afternoon -Fecal occult positive, GI following without plans for scope at this time -Medical mgmt per primary team Disposition: Patient with symptoms and imaging suspicious for acute cholecystitis. Due to medical comorbidities, operative intervention is high risk. Recommend percutaneous cholecystostomy tube- scheduled for this afternoon. Okay for CLD following placement. Will continue to follow. Patient counseled on risks, benefits, and alternatives of treatment plan at length. Patient states an understanding and willingness to proceed with plan. Thank you for the opportunity to care for your patient, please don't hesitate to contact me for any questions or concerns you may have. KELLEY Kaplan Secure Chat during hours 7:30a-4:30p Wednesday-Wednesday After hours, please contact physician vp organizational development. [facility] 10-19-2024 Consult note Associated Order (s): Inpatient consult to Gastroenterology Images from the original note were not included. GI CONSULTATION Patient: Will Jacinto : 1965 Primary Care Physician: Jared Guzman Inpatient consult to Gastroenterology Consult performed by: Edwin Otto MD Consult ordered by: Grace Ackerman MD REASON FOR CONSULTATION: Fecal occult blood test positive HISTORY OF PRESENT ILLNESS: Will Jacinto is a 58 y.o. adult with PMH below who presented to the ER complaining of abdominal pain and chest pain. Patient reports that approximately 2 days ago he began having right upper quadrant/epigastric/chest pain. Nonradiating. Associated with some nausea. Progressively worsening. Denies any exacerbating relieving factors. No previous episodes. In the ER labs showed: Sodium 137, potassium 4.1, BUN 24, creatinine 1.16, normal hepatic function panel except for slightly elevated AST at 50, troponin negative, WBC 25.9, hemoglobin 11.6, platelet 373. CT abdomen/pelvis shows distended gallbladder with suspected gallbladder wall edema concerning for acute cholecystitis. Distended stomach with air-fluid level may be related patient admitted for further evaluation and management. PAST MEDICAL HISTORY: 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) Acquired absence of other toe(s), unspecified side (HCC) Anxiety disorder Bipolar 1 disorder (HCC) Blood circulation, collateral Cellulitis chronic L lower leg COVID 12/08/2021 Depression Diabetes mellitus ([facility]) Type II, on insulin Disease of blood and blood forming organ Endometrial carcinoma (HCC) 11/25/2020 Endometrial hyperplasia Foot ulcer ([facility]) Hx of blood clots RLE prior to amputation Hyperlipidemia Hypertension Lymphedema 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, RLE Morbidly obese ([facility]) Muscle weakness Osteomyelitis (HCC) Osteomyelitis (HCC) 2019 RLE Other lack of coordination Other specified soft tissue disorders Other symbolic dysfunctions Schizophrenia (HCC) Sleep apnea no CPAP Venous insufficiency PAST SURGICAL HISTORY: Past Surgical History: Procedure Laterality Date ABCESS DRAINAGE Right 09/09/2018 FOOT; ACH COLONOSCOPY 09/19/[address] Hyde DILATION AND CURETTAGE OF UTERUS 05/18/2019 HYSTEROSCOPY 12/23/2021 LEG AMPUTATION THROUGH KNEE Right 06/16/2019 UPPER GASTROINTESTINAL ENDOSCOPY N/A 06/29/2023 Dr Sergio Sibley at [facility]; no specimens WISDOM TOOTH EXTRACTION FAMILY HISTORY: Family History Problem Relation Name Age of Onset No Known Problems Mother No Known Problems Father SOCIAL HISTORY: TOBACCO: Social History Tobacco Use Smoking Status Never Smokeless Tobacco Never ETOH: Alcohol Use: Not At Risk (10/19/2024) AUDIT-C Frequency of Alcohol Consumption: Never Average Number of Drinks: Patient does not drink Frequency of Binge Drinking: Never DRUGS: Social History Substance and Sexual Activity Drug Use Never MEDICATIONS PRIOR TO ADMISSION: Current Outpatient Medications Medication Instructions amLODIPine (NORVASC) 10 mg, Oral, Daily ARIPiprazole (Abilify) 10 MG tablet Every 24 hours aspirin 81 MG EC tablet 1 tablet, Daily atorvastatin (Lipitor) 10 MG tablet 1 tablet, Daily bisacodyl (DULCOLAX) 5 mg, 2 times daily PRN carvedilol (COREG) 25 mg, Oral, 2 times daily with meals ferrous sulfate 325 mg, Oral, Daily with breakfast FLUoxetine (PROZAC) 40 mg, Daily gabapentin (NEURONTIN) 100 mg, 2 times daily HumuLIN R 130 Units, 3 times daily hydrALAZINE (APRESOLINE) 25 mg, 3 times daily insulin glargine (LANTUS) 47 Units, 2 times daily insulin regular (HUMULIN R U-500) 90 Units, SubCUTAneous, Daily before lunch insulin regular (HUMULIN R U-500) 120 Units, SubCUTAneous, Daily before breakfast insulin regular (HUMULIN R U-500) 100 Units, SubCUTAneous, Daily before dinner lisinopril 20 mg, Oral, Daily magnesium hydroxide (Milk of Magnesia) 400 MG/5ML suspension 30 mL, Oral, Nightly megestrol (Megace) 20 MG tablet 1 tablet, 2 times daily melatonin 10 mg, Nightly PRN metoclopramide (REGLAN) 10 mg, Oral, 4 times daily before meals & nightly Multiple Vitamin (multivitamin) capsule 1 capsule, Daily pantoprazole (PROTONIX) 40 mg polyethylene glycol (PEG) 3350 (GLYCOLAX) 17 g, Daily torsemide (DEMADEX) 10 mg, Oral, Daily CURRENT MEDICATIONS: Current Facility-Administered Medications: acetaminophen (Tylenol) tablet 650 mg, 650 mg, Oral, q6h PRN OR acetaminophen (Tylenol) suppository 650 mg, 650 mg, Rectal, q6h PRN, Grace Ackerman MD amLODIPine (Norvasc) tablet 10 mg, 10 mg, Oral, Daily, Grace Ackerman MD ARIPiprazole (Abilify) tablet 10 mg, 10 mg, Oral, Daily, Grace Ackerman MD aspirin EC tablet 81 mg, 81 mg, Oral, Daily, Grace Ackerman MD atorvastatin (Lipitor) tablet 10 mg, 10 mg, Oral, Daily, Grace Ackerman MD bisacodyl (Dulcolax) EC tablet 5 mg, 5 mg, Oral, BID PRN, Grace Ackerman MD carvedilol (Coreg) tablet 25 mg, 25 mg, Oral, BID WC, Grace Ackerman MD dextrose 5 % infusion, 100 mL/hr, IntraVENous, PRN, Grace Ackerman MD dextrose 50 % solution 12.5 g, 12.5 g, IntraVENous, PRN, Grace Ackerman MD ferrous sulfate tablet 325 mg, 325 mg, Oral, Daily with breakfast, Grace Ackerman MD FLUoxetine (PROzac) capsule 40 mg, 40 mg, Oral, Daily, Grace Ackerman MD gabapentin (Neurontin) capsule 100 mg, 100 mg, Oral, BID, Grace Ackerman MD, 100 mg at 10/18/24 2223 glucagon (human recombinant) injection 1 mg, 1 mg, IntraMUSCular, PRN, rGace Ackerman MD glucose oral gel 15 g, 15 g, Oral, PRN, Grace Ackerman MD hydrALAZINE (Apresoline) tablet 25 mg, 25 mg, Oral, TID, Grace Ackerman MD influenza vaccine tiss-cult subunt (Flucelvax) STANDARD-DOSE injection 0.5 mL, 0.5 mL, IntraMUSCular, Prior to discharge, Grace Ackerman MD insulin glargine (Lantus) injection 45 Units, 45 Units, SubCUTAneous, BID, Grace Ackerman MD Insulin Lispro (Humalog) injection 0-12 Units, 0-12 Units, SubCUTAneous, 4x daily AC & HS AND [DISCONTINUED] Insulin Lispro (Humalog) injection 0-12 Units, 0-12 Units, SubCUTAneous, Nightly, Grace Ackerman MD ipratropium-albuterol (Duo-Neb) 0.5-2.5 mg/3 mL nebulizer solution 3 mL, 3 mL, Nebulization, 4x daily PRN, Grace Ackerman MD, 3 mL at 10/18/24 230 magnesium hydroxide (Milk of Magnesia) 400 MG/5ML suspension 30 mL, 30 mL, Oral, Nightly, Grace Ackerman MD Melatonin disintegrating tablet 10 mg, 10 mg, Oral, Nightly PRN, Grace Ackerman MD, 10 mg at 10/18/24 2223 metoclopramide (Reglan) tablet 10 mg, 10 mg, Oral, 4x daily AC & HS, Grace Ackerman MD, 10 mg at 10/19/24 0631 ondansetron ODT (Zofran-ODT) disintegrating tablet 4 mg, 4 mg, Oral, q8h PRN OR ondansetron (Zofran) injection 4 mg, 4 mg, IntraVENous, q6h PRN, Grace Ackerman MD, 4 mg at 10/19/24 0041 pantoprazole (ProtoNix) 40 mg in sodium chloride (PF) 0.9 % 10 mL injection, 40 mg, IntraVENous, BID, Grace Ackerman MD, 40 mg at 10/19/24 0631 piperacillin-tazobactam (Zosyn) 3,375 mg in sodium chloride 0.9 % 50 mL IVPB Mini-Bag Plus, 3,375 mg, IntraVENous, q8h, Grace Ackerman MD sodium chloride 0.9 % infusion, 5-250 mL/hr, IntraVENous, PRN, Grace Ackerman MD sodium chloride 0.9% (NS) flush 10 mL, 10 mL, IntraVENous, 2 times per day, Grace Ackerman MD, 10 mL at 10/18/24 2227 sodium chloride 0.9% (NS) flush 10 mL, 10 mL, IntraVENous, PRN, Grace Ackerman MD torsemide (Demadex) tablet 10 mg, 10 mg, Oral, Daily, Grace Ackerman MD ALLERGIES: No Known Allergies REVIEW OF SYSTEMS: No fever, chills, or sweats. Normal appetite and weight. No MALCOLM, visual disturbance, eye pain, jaundice, sore throat or mouth ulcers. No skin rash or itching. No CP, SOB, ROBLERO, cough or wheeze. No urinary frequency, urgency, hematuria, or dysuria. No myalgia, arthralgia, or joint swelling. No weakness, numbness, or confusion. GI per HPI. No polyuria, polydipsia, heat or cold intolerance. PHYSICAL EXAM: VS: BP 149/89 (BP Location: Right arm) Pulse 98 Temp 36.7 C (98 F) (Temporal) Resp 24 Ht 5' 6" (1.676 m) Wt (!) 320 lb (145 kg) SpO2 93% BMI 51.65 kg/m Body mass index is 51.65 kg/m . GENERAL: Pleasant and NAD. HEENT: NCAT, PERRLA, EOMI, Scleral anicteric. Oropharhynx clear with no erythema or exudate. Neck supple, no cervical LAD or thyromegaly. CV: RRR, NL S1/S2, no murmurs. Distal pulses palpable and equal b/l. LUNGS: CTA b/l. Normal percussion and palpation. No W/R/R. Abdomen: + BS, soft, right upper quadrant tenderness to palpation. non-distended. No hepatosplenomegaly. No mass felt. No rebound or guarding. No hernia. Extremities: No C/C/E. No muscle atrophy. Skin: No skin lesion or breakdown. Lymph: No cervical or supraclavicular LAD. Musculoskeletal: Strength 5/5 in all exts. No joint tenderness or effusions in LEs. Neurologic: A&O x 3, CN II-XII grossly intact. No asterixis. Non-focal. Psych: Normal affect and speech. LABS AND IMAGING: Recent blood work and relevant radiologic and endoscopic studies were reviewed and discussed with the patient. CMP: Recent Labs 10/18/24 1640 10/19/24 0343 NA 137 135* K 4.1 3.6 CL 103 102 CO2 21* 22 BUN 24* 32* CREATININE 1.16 1.15 GLUCOSE 226* 223* CALCIUM 9.0 8.9 CBC: Recent Labs 10/18/24 1640 10/19/24 0343 WBC 25.9* 21.8* HGB 11.6* 10.9* HCT 36.8 34.4 PLT 373 339 HEPATIC: Recent Labs 10/18/24 1640 10/19/24 0343 AST 50* 50* ALT 67 83 BILITOT 0.7 0.8 ALKPHOS 133 151 BNP: No results for input(s): "BNP" in the last 72 hours. LIPASE/AMYLASE: Recent Labs 10/18/24 1640 LIPASE 6 LACTATE: No lab exists for component: "LACTA" TROPONIN: No results for input(s): "TROPONINI" in the last 72 hours. LIPIDS: No results for input(s): "CHOL", "HDL" in the last 72 hours. No lab exists for component: LDLCALCU INR: No results for input(s): "INR" in the last 72 hours. NH3:No results for input(s): "AMMONIA" in the last 72 hours. @IMAGES@ @RISRSLT@ POCT glucose meter Performed by: [facility], [address] [place] [address] CLIA ID: [id number] [facility]@ @[facility]@ abdomen limited Final Result 1. Cholestasis, cholelithiasis, gallbladder wall thickening, with probable mural edema and trace pericholecystic fluid, as well as positive sonographic Caldwell's sign, suspicious for postinflammatory change, including acute cholecystitis. Clinical correlation and follow-up as indicated. Report Dictated on Electronically Signed By: Joel Haddad MD Electronically Signed Date/Time: 10/18/2024 8:[address] abdomen pelvis w contrast Final Result Distended gallbladder with suspected gallbladder wall edema concerning for acute cholecystitis. Distended stomach with air-fluid level may be related. Please correlate clinically. Follow-up recommended. CTR Dr Woodall. Report Dictated on Electronically Signed By: Javy Urias MD Electronically Signed Date/Time: 10/18/2024 7:[address] chest angiogram w and/or wo IV contrast Final Result Impression:Very limited due to motion.. Consider repeat exam or VQ scan for persistent symptoms. Note made of distended stomach with air-fluid level. Report Dictated on Electronically Signed By: Javy Urias MD Electronically Signed Date/Time: 10/18/2024 7:05 PM EST IMPRESSION / RECOMMENDATIONS: Diabetes Schizophrenia/bipolar/depression History of osteomyelitis of the right lower extremity status post AKA Obstructive sleep apnea Abdominal pain: CT scan suggest possible acute cholecystitis -General Surgery consulted Anemia/FOBT positive: Patient denies any black tarry stool or bright red blood per rectum. Review of hemoglobin looks like his baseline for the past year is between 10 and 10.5. Patient has never had an EGD or colonoscopy. -Monitor hemoglobin and transfuse as necessary -PPI daily -Check iron studies/non-GI bleed workup -Hold off on any scopes at this time (may consider as inpatient versus outpatient based on clinical course) while General Surgery evaluating patient for possible acute cholecystitis (Comment: Please note this report has been produced using speech recognition software and may contain errors related to that system including errors in grammar, punctuation, and spelling, as well as words and phrases that may be inappropriate. If there are any questions or concerns please feel free to contact the dictating provider for clarification.) [employer] Phone: 10-18-2024 History and physical note Attending History and Physical Admit Date: 10/18/2024 PCP: Jared Guzman CHIEF COMPLAINT: Abdominal pain, Chest pain. Reason for Admission: Acute Cholecystitis History Obtained From: patient HISTORY OF PRESENT ILLNESS: Will is a 58 y.o. adult with past medical history significant for DM, HTN, Lymphedema, Morbid obesity who currently resides in a nursing facility. He presented to the ER with c/o acute onset of abdominal,chest pain. Patient stated that the pain started 2 days ago and has been progressively getting worse. Pain was more so in the right upper abdominal area and today started feeling nauseous and had episode of vomiting. Pain is 6/10 in severity. Patient also had associated chest pain. He denies having any fever or chills. He had loose stool earlier however no blood in the stool. He denies any difficulty breathing 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 other toe(s), unspecified side (HCC) Anxiety disorder Bipolar 1 disorder (HCC) Blood circulation, collateral Cellulitis chronic L lower leg COVID 12/08/2021 Depression Diabetes mellitus (HCC) Type II, on insulin Disease of blood and blood forming organ Endometrial carcinoma (HCC) 11/25/2020 Endometrial hyperplasia Foot ulcer (HCC) Hx of blood clots RLE prior to amputation Hyperlipidemia Hypertension Lymphedema 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; no specimens WISDOM TOOTH EXTRACTION Social History: Social History Socioeconomic History Marital status: Single Spouse name: Not on file Number of children: Not on file Years of education: Not on file Highest education level: Not on file Occupational History Not on file Tobacco Use Smoking status: Never Smokeless tobacco: Never Vaping Use Vaping status: Never Used Substance and Sexual Activity Alcohol use: No Drug use: Never Sexual activity: Not on file Other Topics Concern Not on file Social History Narrative Not on file 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 Health Financial Resource Strain: Not on file Food Insecurity: Not on file Transportation Needs: No Transportation Needs (01/01/2024) PRAPARE - Transportation Lack of Transportation (Medical): No Lack of Transportation (Non-Medical): No Physical Activity: Not on file Stress: Not on file Social Connections: Not on file Intimate Partner Violence: Not At Risk (01/01/2024) Humiliation, Afraid, Rape, and Kick questionnaire Fear of Current or Ex-Partner: No Emotionally Abused: No Physically Abused: No Sexually Abused: No Housing Stability: Low Risk (01/01/2024) Housing Stability Vital Sign Unable to Pay for Housing in the Last Year: No Number of Places Lived in the Last Year: 1 Unstable Housing in the Last Year: No Family History: Family History Problem Relation Name Age of Onset No Known Problems Mother No Known Problems Father Medications Prior to Admission: No current facility-administered medications on file prior to encounter. Current Outpatient Medications on File Prior to Encounter Medication Sig Dispense Refill amLODIPine (Norvasc) 10 MG tablet Take 1 tablet (10 mg) by mouth daily. ARIPiprazole (Abilify) 10 MG tablet Every 24 hours. aspirin 81 MG EC tablet Take 1 tablet by mouth daily. atorvastatin (Lipitor) 10 MG tablet Take 1 tablet by mouth daily. bisacodyl (Dulcolax) 5 MG EC tablet Take 5 mg by mouth 2 times daily as needed for constipation. Do not crush, chew, or split. carvedilol (Coreg) 25 MG tablet Take 1 tablet (25 mg) by mouth in the morning and 1 tablet (25 mg) in the evening. Take with meals. ferrous sulfate 325 (65 Fe) MG tablet Take 1 tablet (325 mg) by mouth daily (with breakfast). FLUoxetine (PROzac) 40 MG capsule Take 40 mg by mouth daily. gabapentin (Neurontin) 100 MG capsule Take 100 mg by mouth in the morning and 100 mg before bedtime. insulin glargine (Lantus) 100 UNIT/ML injection Inject 45 Units under the skin 2 times daily. insulin regular (HumuLIN R U-500) 500 UNIT/ML CONCENTRATED injection Inject 90 Units under the skin daily (before lunch). insulin regular (HumuLIN R U-500) 500 UNIT/ML CONCENTRATED injection Inject 120 Units under the skin every morning (before breakfast). insulin regular (HumuLIN R U-500) 500 UNIT/ML CONCENTRATED injection Inject 100 Units under the skin daily (before dinner). insulin regular (HumuLIN R) 500 UNIT/ML CONCENTRATED injection Inject 130 Units under the skin 3 times daily. lisinopril 40 MG tablet Take 0.5 tablets (20 mg) by mouth daily. (Patient not taking: Reported on 02/11/2024) magnesium hydroxide (Milk of Magnesia) 400 MG/5ML suspension Take 30 mL by mouth Nightly. megestrol (Megace) 20 MG tablet Take 1 tablet by mouth in the morning and 1 tablet before bedtime. melatonin 10 MG tablet Take 10 mg by mouth Nightly as needed (insomnia). metoclopramide (Reglan) 10 MG tablet Take 1 tablet (10 mg) by mouth 4 times daily (before meals and nightly). Multiple Vitamin (multivitamin) capsule Take 1 capsule by mouth daily. pantoprazole (ProtoNix) 40 MG EC tablet Take 40 mg by mouth. polyethylene glycol, PEG, 3350 (Glycolax) 17 GM/SCOOP powder Take 17 g by mouth daily. torsemide (Demadex) 10 MG tablet Take 1 tablet (10 mg) by mouth daily. Allergies: No Known Allergies REVIEW OF SYSTEMS: Constitutional: Negative for fever, chills, activity change and unexpected weight change. HEENT: Negative for congestion, postnasal drip and sneezing. Eyes: Negative for itching and visual disturbance. Respiratory: Negative for apnea, cough, choking, chest tightness, shortness of breath, wheezing and stridor. Cardiovascular: Positive for chest pain Gastrointestinal: Positive for abdominal pain, nausea, vomiting and diarrhea Genitourinary: Negative for dysuria, frequency and flank pain. Musculoskeletal: Negative for myalgias and joint swelling. Skin: Negative for rash. Neurological: Negative for dizziness, tremors, seizures, syncope, facial asymmetry, speech difficulty, weakness, numbness and headaches. Hematological: Negative for adenopathy. Psychiatric/Behavioral: Negative for suicidal ideas, behavioral problems, self-injury and dysphoric mood. Vitals: BP 131/62 (BP Location: Right arm, Patient Position: Lying) Pulse 92 Temp 36.9 C (98.4 F) (Oral) Resp 18 Ht 5' 6" (1.676 m) Wt 290 lb (132 kg) SpO2 (!) 92% BMI 46.81 kg/m BMI Classification: Morbidly Obese (>40.0) Pulse Ox: SpO2 Av % Min: 92 % Max: 95 % Supplemental O2: PHYSICAL EXAM: Constitutional: General: Patient is not in acute distress. Appearance: Normal appearance. HENT: Head: Normocephalic and atraumatic. Right Ear: External ear normal. Left Ear: External ear normal. Mouth/Throat: Mouth: Mucous membranes are moist. Pharynx: Oropharynx is clear. Eyes: Extraocular Movements: Extraocular movements intact. Conjunctiva/sclera: Conjunctivae normal. Pupils: Pupils are equal, round, and reactive to light. Cardiovascular: Comments: Regular rate and rhythm, normal S1-S2, no murmurs noted. Radial pulses 2+ and symmetric. Pulmonary: Effort: Pulmonary effort is normal. No respiratory distress. Breath sounds: Normal breath sounds. No stridor. No wheezing or rhonchi. Abdominal: Comments: The abdomen is soft, nondistended and nontender. There is no rebound tenderness or guarding. Bowel sounds are normal. Morbidly obese Skin: General: Skin is warm and dry. Capillary Refill: Capillary refill takes less than 2 seconds. Coloration: Skin is not jaundiced or pale. Findings: No bruising or erythema. Neurological: General: No focal deficit present. Mental Status: Patient is alert and oriented to person, place, and time. Mental status is at baseline. Cranial Nerves: No cranial nerve deficit. Sensory: No sensory deficit. Motor: No weakness. Coordination: Coordination normal. Psychiatric: Mood and Affect: Mood normal. Musculoskeletal: NO edema right above-knee amputee DATA: CBC: Recent Labs 10/18/24 1640 WBC 25.9* RBC 4.28 HGB 11.6* HCT 36.8 MCV 86.0 RDW 14.5 PLT 373 BMP: Recent Labs 10/18/24 1640 NA 137 K 4.1 CL 103 CO2 21* BUN 24* CREATININE 1.16 GLUCOSE 226* CALCIUM 9.0 ANIONGAP 13 LIVER PROFILE: Recent Labs 10/18/24 1640 AST 50* ALT 67 BILITOT 0.7 ALKPHOS 133 PROT 6.7 PT/INR: No results for input(s): "PROTIME", "INR" in the last 72 hours. CARDIAC ENZYMES: No results for input(s): "TROPONINI" in the last 72 hours. Procalcitonin: No results found for: "PROCAL" Urine Culture: Results for orders placed or performed during the hospital encounter of 12/31/23 Urine culture Collection Time: 12/31/23 4:48 PM Specimen: Urine, Clean Catch Result Value Ref Range Urine Culture Normal urogenital dorinda present COVID-19 PCR: No results for input(s): "COVID19" in the last 72 hours. I reviewed: [x] laboratory results [x] radiographic results At the time of today's encounter. Pt was advised of the results. Data: (CAT1) Clinical information was necessarily obtained from an independent historian. (LOW: 2x CAT1 or independent historian MOD: 3x CAT1 or 1x CAT3 EXTENSIVE: 3x CAT1 and 1x CAT3) Assessment Discussed management with the ED provider and agree with hospitalization. 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 Initiate IV fluid General Surgery consultation has been obtained Patient will be started on empiric IV antibiotics Tylenol for mild pain and fever, morphine for severe pain Zofran for nausea Hold off on oral hypoglycemic agents and will place the patient on sliding scale insulin coverage Resume rest of medications from home - am labs, replace lytes prn - PT/OT/CM/SW - delirium precautions: increase activity and limit nighttime disturbances - DVT prophylaxis: enoxaparin and encourage ambulation Complexity: Acute illness with systemic symptoms (MOD). Risk: Admission to hospital-level care was considered or occurred (HIGH). Advance Directive: Prior Anticipated Discharge - Date - 10/20/24 - [facility] - Pending the following -treatment for acute cholecystitis Total time spent (which include face to face and non face to face encounters) : 55 minutes. Toxic drug monitoring/narrow therapeutic index drug monitoring : # Drug name : Lovenox # Route administered : Subcutaneous # Method of monitoring : CBC Extended Emergency Contact Information Primary Emergency Contact: Jovana Quesada (POA) Relation: Niece Secondary Emergency Contact: Carola Lubin Mobile Relation: Other [employer] Will Jacinto : 1965 Primary Care Physician: Jared Guzman The patient and/or family/surrogate voluntarily agreed to participate in ACP services. Patient s cognitive capacity: AOx3 Code Status: [x_] [FULL CODE - Continue all advanced life support: CPR,intubation,invasive procedures] [_] [DNR-CCA - DO NOT do CPR, intubation] [_] [DNR-CANDLEMAKER - Comfort care only] [_] DNR form [was/was not] signed Summary of discussion: The patient health care POA/ surrogate is the following: Patient. . [Condition that instigated the ACP on this DOS, relevant PMH, functional status, goals of care, and whom this was discussed with including names and relationship to the patient, and any relevant advance care documentation discussion] I answered all the patient/family questions that I could within the range and scope of the current medical situation. We discussed the medical conditions, risks, benefits, outcomes, and goals of care at this time for the patient's medical issues at hand in the face of the patient's chronic issues and current presentation. Total time spent: 5 minutes were spent discussing the patient's resuscitation status, advance care planning, and end of life care, with patient and/or family/surrogate. Grace Ackerman MD Division of Hospitalist Medicine [facility] [employer] Work Phone: 10-18-2024 Note [employer] [facility] 10-18-2024 History and physical note Attending History and Physical Admit Date: 10/18/2024 PCP: Jared Guzman CHIEF COMPLAINT: Abdominal pain, Chest pain. Reason for Admission: Acute Cholecystitis History Obtained From: patient HISTORY OF PRESENT ILLNESS: Will is a 58 y.o. adult with past medical history significant for DM, HTN, Lymphedema, Morbid obesity who currently resides in a nursing facility. He presented to the ER with c/o acute onset of abdominal,chest pain. Patient stated that the pain started 2 days ago and has been progressively getting worse. Pain was more so in the right upper abdominal area and today started feeling nauseous and had episode of vomiting. Pain is 6/10 in severity. Patient also had associated chest pain. He denies having any fever or chills. He had loose stool earlier however no blood in the stool. He denies any difficulty breathing 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 other toe(s), unspecified side (HCC) Anxiety disorder Bipolar 1 disorder (HCC) Blood circulation, collateral Cellulitis chronic L lower leg COVID 12/08/2021 Depression Diabetes mellitus (HCC) Type II, on insulin Disease of blood and blood forming organ Endometrial carcinoma (HCC) 11/25/2020 Endometrial hyperplasia Foot ulcer (HCC) Hx of blood clots RLE prior to amputation Hyperlipidemia Hypertension Lymphedema 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; no specimens WISDOM TOOTH EXTRACTION Social History: Social History Socioeconomic History Marital status: Single Spouse name: Not on file Number of children: Not on file Years of education: Not on file Highest education level: Not on file Occupational History Not on file Tobacco Use Smoking status: Never Smokeless tobacco: Never Vaping Use Vaping status: Never Used Substance and Sexual Activity Alcohol use: No Drug use: Never Sexual activity: Not on file Other Topics Concern Not on file Social History Narrative Not on file 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 Health Financial Resource Strain: Not on file Food Insecurity: Not on file Transportation Needs: No Transportation Needs (01/01/2024) PRAPARE - Transportation Lack of Transportation (Medical): No Lack of Transportation (Non-Medical): No Physical Activity: Not on file Stress: Not on file Social Connections: Not on file Intimate Partner Violence: Not At Risk (01/01/2024) Humiliation, Afraid, Rape, and Kick questionnaire Fear of Current or Ex-Partner: No Emotionally Abused: No Physically Abused: No Sexually Abused: No Housing Stability: Low Risk (01/01/2024) Housing Stability Vital Sign Unable to Pay for Housing in the Last Year: No Number of Places Lived in the Last Year: 1 Unstable Housing in the Last Year: No Family History: Family History Problem Relation Name Age of Onset No Known Problems Mother No Known Problems Father Medications Prior to Admission: No current facility-administered medications on file prior to encounter. Current Outpatient Medications on File Prior to Encounter Medication Sig Dispense Refill amLODIPine (Norvasc) 10 MG tablet Take 1 tablet (10 mg) by mouth daily. ARIPiprazole (Abilify) 10 MG tablet Every 24 hours. aspirin 81 MG EC tablet Take 1 tablet by mouth daily. atorvastatin (Lipitor) 10 MG tablet Take 1 tablet by mouth daily. bisacodyl (Dulcolax) 5 MG EC tablet Take 5 mg by mouth 2 times daily as needed for constipation. Do not crush, chew, or split. carvedilol (Coreg) 25 MG tablet Take 1 tablet (25 mg) by mouth in the morning and 1 tablet (25 mg) in the evening. Take with meals. ferrous sulfate 325 (65 Fe) MG tablet Take 1 tablet (325 mg) by mouth daily (with breakfast). FLUoxetine (PROzac) 40 MG capsule Take 40 mg by mouth daily. gabapentin (Neurontin) 100 MG capsule Take 100 mg by mouth in the morning and 100 mg before bedtime. insulin glargine (Lantus) 100 UNIT/ML injection Inject 45 Units under the skin 2 times daily. insulin regular (HumuLIN R U-500) 500 UNIT/ML CONCENTRATED injection Inject 90 Units under the skin daily (before lunch). insulin regular (HumuLIN R U-500) 500 UNIT/ML CONCENTRATED injection Inject 120 Units under the skin every morning (before breakfast). insulin regular (HumuLIN R U-500) 500 UNIT/ML CONCENTRATED injection Inject 100 Units under the skin daily (before dinner). insulin regular (HumuLIN R) 500 UNIT/ML CONCENTRATED injection Inject 130 Units under the skin 3 times daily. lisinopril 40 MG tablet Take 0.5 tablets (20 mg) by mouth daily. (Patient not taking: Reported on 02/11/2024) magnesium hydroxide (Milk of Magnesia) 400 MG/5ML suspension Take 30 mL by mouth Nightly. megestrol (Megace) 20 MG tablet Take 1 tablet by mouth in the morning and 1 tablet before bedtime. melatonin 10 MG tablet Take 10 mg by mouth Nightly as needed (insomnia). metoclopramide (Reglan) 10 MG tablet Take 1 tablet (10 mg) by mouth 4 times daily (before meals and nightly). Multiple Vitamin (multivitamin) capsule Take 1 capsule by mouth daily. pantoprazole (ProtoNix) 40 MG EC tablet Take 40 mg by mouth. polyethylene glycol, PEG, 3350 (Glycolax) 17 GM/SCOOP powder Take 17 g by mouth daily. torsemide (Demadex) 10 MG tablet Take 1 tablet (10 mg) by mouth daily. Allergies: No Known Allergies REVIEW OF SYSTEMS: Constitutional: Negative for fever, chills, activity change and unexpected weight change. HEENT: Negative for congestion, postnasal drip and sneezing. Eyes: Negative for itching and visual disturbance. Respiratory: Negative for apnea, cough, choking, chest tightness, shortness of breath, wheezing and stridor. Cardiovascular: Positive for chest pain Gastrointestinal: Positive for abdominal pain, nausea, vomiting and diarrhea Genitourinary: Negative for dysuria, frequency and flank pain. Musculoskeletal: Negative for myalgias and joint swelling. Skin: Negative for rash. Neurological: Negative for dizziness, tremors, seizures, syncope, facial asymmetry, speech difficulty, weakness, numbness and headaches. Hematological: Negative for adenopathy. Psychiatric/Behavioral: Negative for suicidal ideas, behavioral problems, self-injury and dysphoric mood. Vitals: BP 131/62 (BP Location: Right arm, Patient Position: Lying) Pulse 92 Temp 36.9 C (98.4 F) (Oral) Resp 18 Ht 5' 6" (1.676 m) Wt 290 lb (132 kg) SpO2 (!) 92% BMI 46.81 kg/m BMI Classification: Morbidly Obese (>40.0) Pulse Ox: SpO2 Av % Min: 92 % Max: 95 % Supplemental O2: PHYSICAL EXAM: Constitutional: General: Patient is not in acute distress. Appearance: Normal appearance. HENT: Head: Normocephalic and atraumatic. Right Ear: External ear normal. Left Ear: External ear normal. Mouth/Throat: Mouth: Mucous membranes are moist. Pharynx: Oropharynx is clear. Eyes: Extraocular Movements: Extraocular movements intact. Conjunctiva/sclera: Conjunctivae normal. Pupils: Pupils are equal, round, and reactive to light. Cardiovascular: Comments: Regular rate and rhythm, normal S1-S2, no murmurs noted. Radial pulses 2+ and symmetric. Pulmonary: Effort: Pulmonary effort is normal. No respiratory distress. Breath sounds: Normal breath sounds. No stridor. No wheezing or rhonchi. Abdominal: Comments: The abdomen is soft, nondistended and nontender. There is no rebound tenderness or guarding. Bowel sounds are normal. Morbidly obese Skin: General: Skin is warm and dry. Capillary Refill: Capillary refill takes less than 2 seconds. Coloration: Skin is not jaundiced or pale. Findings: No bruising or erythema. Neurological: General: No focal deficit present. Mental Status: Patient is alert and oriented to person, place, and time. Mental status is at baseline. Cranial Nerves: No cranial nerve deficit. Sensory: No sensory deficit. Motor: No weakness. Coordination: Coordination normal. Psychiatric: Mood and Affect: Mood normal. Musculoskeletal: NO edema right above-knee amputee DATA: CBC: Recent Labs 10/18/24 1640 WBC 25.9* RBC 4.28 HGB 11.6* HCT 36.8 MCV 86.0 RDW 14.5 PLT 373 BMP: Recent Labs 10/18/24 1640 NA 137 K 4.1 CL 103 CO2 21* BUN 24* CREATININE 1.16 GLUCOSE 226* CALCIUM 9.0 ANIONGAP 13 LIVER PROFILE: Recent Labs 10/18/24 1640 AST 50* ALT 67 BILITOT 0.7 ALKPHOS 133 PROT 6.7 PT/INR: No results for input(s): "PROTIME", "INR" in the last 72 hours. CARDIAC ENZYMES: No results for input(s): "TROPONINI" in the last 72 hours. Procalcitonin: No results found for: "PROCAL" Urine Culture: Results for orders placed or performed during the hospital encounter of 12/31/23 Urine culture Collection Time: 12/31/23 4:48 PM Specimen: Urine, Clean Catch Result Value Ref Range Urine Culture Normal urogenital dorinda present COVID-19 PCR: No results for input(s): "COVID19" in the last 72 hours. I reviewed: [x] laboratory results [x] radiographic results At the time of today's encounter. Pt was advised of the results. Data: (CAT1) Clinical information was necessarily obtained from an independent historian. (LOW: 2x CAT1 or independent historian MOD: 3x CAT1 or 1x CAT3 EXTENSIVE: 3x CAT1 and 1x CAT3) Assessment Discussed management with the ED provider and agree with hospitalization. 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 Initiate IV fluid General Surgery consultation has been obtained Patient will be started on empiric IV antibiotics Tylenol for mild pain and fever, morphine for severe pain Zofran for nausea Hold off on oral hypoglycemic agents and will place the patient on sliding scale insulin coverage Resume rest of medications from home - am labs, replace lytes prn - PT/OT/CM/SW - delirium precautions: increase activity and limit nighttime disturbances - DVT prophylaxis: enoxaparin and encourage ambulation Complexity: Acute illness with systemic symptoms (MOD). Risk: Admission to hospital-level care was considered or occurred (HIGH). Advance Directive: Prior Anticipated Discharge - Date - 10/20/24 - [facility] - Pending the following -treatment for acute cholecystitis Total time spent (which include face to face and non face to face encounters) : 55 minutes. Toxic drug monitoring/narrow therapeutic index drug monitoring : # Drug name : Lovenox # Route administered : Subcutaneous # Method of monitoring : CBC Extended Emergency Contact Information Primary Emergency Contact: Jovana Quesada (POA) Relation: Niece Secondary Emergency Contact: Carola Lubin Mobile Relation: Other [employer] Will Jacinto : 1965 Primary Care Physician: Jared Guzman The patient and/or family/surrogate voluntarily agreed to participate in ACP services. Patient s cognitive capacity: AOx3 Code Status: [x_] [FULL CODE - Continue all advanced life support: CPR,intubation,invasive procedures] [_] [DNR-CCA - DO NOT do CPR, intubation] [_] [DNR-CANDLEMAKER - Comfort care only] [_] DNR form [was/was not] signed Summary of discussion: The patient health care POA/ surrogate is the following: Patient. . [Condition that instigated the ACP on this DOS, relevant PMH, functional status, goals of care, and whom this was discussed with including names and relationship to the patient, and any relevant advance care documentation discussion] I answered all the patient/family questions that I could within the range and scope of the current medical situation. We discussed the medical conditions, risks, benefits, outcomes, and goals of care at this time for the patient's medical issues at hand in the face of the patient's chronic issues and current presentation. Total time spent: 5 minutes were spent discussing the patient's resuscitation status, advance care planning, and end of life care, with patient and/or family/surrogate. Grace Ackerman MD Division of Hospitalist Medicine [facility] documented in this encounter [facility] 10-18-2024 Emergency department Note EKG at bedside [facility] 10-18-2024 Emergency department Note EKG at bedside EKG called EMERGENCY DEPARTMENT ENCOUNTER Pt Name: Maria Luisa Jacinto Birthdate 1965 Date of evaluation: 10/18/2024 ED Provider: Dontrell Woodall DO CHIEF COMPLAINT Chief Complaint Patient presents with Abdominal Pain Pt [facility]. Pt presents with abd pain, diarrhea, chest pain. Pt presents aox4 speaking in full and complete sentences. Chest Pain Nausea HISTORY OF PRESENT ILLNESS (Location/Symptom, Timing/Onset, Context/Setting, Quality, Duration, Modifying Factors, Severity) Note limiting factors. I wore appropriate PPE for the entirety of this encounter. HPI Maria Luisa Jacinto is a 58 y.o. who presents to the emergency department for evaluation of chest pain and abdominal pain. He started having some abdominal pain about 2 days ago, today he was feeling nauseated and threw up. He rates his abdominal pain as a 6 out of 10. He started having some chest pain earlier today, pressure sensation. He denies any fevers or chills. He does have some associated diarrhea. No history of DVT or PE. He is not hypoxic. Nursing Notes were reviewed. Limitations to history: None Outside historians: None REVIEW OF SYSTEMS Review of Systems Constitutional: Negative for chills and fever. HENT: Negative for ear pain and sore throat. Eyes: Negative for pain and visual disturbance. Respiratory: Negative for cough and shortness of breath. Cardiovascular: Positive for chest pain. Negative for palpitations. Gastrointestinal: Positive for abdominal pain, nausea and vomiting. Genitourinary: Negative for dysuria and hematuria. Musculoskeletal: Negative for arthralgias and back pain. Skin: Negative for color change and rash. Neurological: Negative for seizures and syncope. All other systems reviewed and are negative. Pertinent positives and negatives as per HPI 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) Acquired absence of other toe(s), unspecified side ([facility]) Anxiety disorder Bipolar 1 disorder ([facility]) Blood circulation, collateral Cellulitis chronic L lower leg COVID 12/08/2021 Depression Diabetes mellitus ([facility]) Type II, on insulin Disease of blood and blood forming organ Endometrial carcinoma ([facility]) 11/25/2020 Endometrial hyperplasia Foot ulcer ([facility]) Hx of blood clots RLE prior to amputation Hyperlipidemia Hypertension Lymphedema 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, RLE Morbidly obese ([facility]) Muscle weakness Osteomyelitis ([facility]) Osteomyelitis ([facility]) 2019 RLE Other lack of coordination Other specified soft tissue disorders Other symbolic dysfunctions Schizophrenia ([facility]) Sleep apnea no CPAP Venous insufficiency SURGICAL HISTORY Past Surgical History: Procedure Laterality Date ABCESS DRAINAGE Right 09/09/2018 FOOT; ACH COLONOSCOPY 09/19/[address] Hyde DILATION AND CURETTAGE OF UTERUS 05/18/2019 HYSTEROSCOPY 12/23/2021 LEG AMPUTATION THROUGH KNEE Right 06/16/2019 UPPER GASTROINTESTINAL ENDOSCOPY N/A 06/29/2023 Dr Sergio Sibley at [facility]; no specimens WISDOM TOOTH EXTRACTION CURRENT MEDICATIONS Previous Medications AMLODIPINE (NORVASC) 10 MG TABLET Take 1 tablet (10 mg) by mouth daily. ARIPIPRAZOLE (ABILIFY) 10 MG TABLET Every 24 hours. ASPIRIN 81 MG EC TABLET Take 1 tablet by mouth daily. ATORVASTATIN (LIPITOR) 10 MG TABLET Take 1 tablet by mouth daily. BISACODYL (DULCOLAX) 5 MG EC TABLET Take 5 mg by mouth 2 times daily as needed for constipation. Do not crush, chew, or split. CARVEDILOL (COREG) 25 MG TABLET Take 1 tablet (25 mg) by mouth in the morning and 1 tablet (25 mg) in the evening. Take with meals. FERROUS SULFATE 325 (65 FE) MG TABLET Take 1 tablet (325 mg) by mouth daily (with breakfast). FLUOXETINE (PROZAC) 40 MG CAPSULE Take 40 mg by mouth daily. GABAPENTIN (NEURONTIN) 100 MG CAPSULE Take 100 mg by mouth in the morning and 100 mg before bedtime. INSULIN GLARGINE (LANTUS) 100 UNIT/ML INJECTION Inject 45 Units under the skin 2 times daily. INSULIN REGULAR (HUMULIN R U-500) 500 UNIT/ML CONCENTRATED INJECTION Inject 90 Units under the skin daily (before lunch). INSULIN REGULAR (HUMULIN R U-500) 500 UNIT/ML CONCENTRATED INJECTION Inject 120 Units under the skin every morning (before breakfast). INSULIN REGULAR (HUMULIN R U-500) 500 UNIT/ML CONCENTRATED INJECTION Inject 100 Units under the skin daily (before dinner). INSULIN REGULAR (HUMULIN R) 500 UNIT/ML CONCENTRATED INJECTION Inject 130 Units under the skin 3 times daily. LISINOPRIL 40 MG TABLET Take 0.5 tablets (20 mg) by mouth daily. MAGNESIUM HYDROXIDE (MILK OF MAGNESIA) 400 MG/5ML SUSPENSION Take 30 mL by mouth Nightly. MEGESTROL (MEGACE) 20 MG TABLET Take 1 tablet by mouth in the morning and 1 tablet before bedtime. MELATONIN 10 MG TABLET Take 10 mg by mouth Nightly as needed (insomnia). METOCLOPRAMIDE (REGLAN) 10 MG TABLET Take 1 tablet (10 mg) by mouth 4 times daily (before meals and nightly). MULTIPLE VITAMIN (MULTIVITAMIN) CAPSULE Take 1 capsule by mouth daily. PANTOPRAZOLE (PROTONIX) 40 MG EC TABLET Take 40 mg by mouth. POLYETHYLENE GLYCOL, PEG, 3350 (GLYCOLAX) 17 GM/SCOOP POWDER Take 17 g by mouth daily. TORSEMIDE (DEMADEX) 10 MG TABLET Take 1 tablet (10 mg) by mouth daily. ALLERGIES Patient has no known allergies. FAMILY HISTORY Family History Problem Relation Name Age of Onset No Known Problems Mother No Known Problems Father SOCIAL HISTORY Social History Socioeconomic History Marital status: Single Tobacco Use Smoking status: Never Smokeless tobacco: Never Vaping Use Vaping status: Never Used Substance and Sexual Activity Alcohol use: No Drug use: Never 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 Health Transportation Needs: No Transportation Needs (01/01/2024) PRAPARE - Transportation Lack of Transportation (Medical): No Lack of Transportation (Non-Medical): No Intimate Partner Violence: Not At Risk (01/01/2024) Humiliation, Afraid, Rape, and Kick questionnaire Fear of Current or Ex-Partner: No Emotionally Abused: No Physically Abused: No Sexually Abused: No Housing Stability: Low Risk (01/01/2024) Housing Stability Vital Sign Unable to Pay for Housing in the Last Year: No Number of Places Lived in the Last Year: 1 Unstable Housing in the Last Year: No PHYSICAL EXAM ED Triage Vitals [10/18/24 1633] Temp Heart Rate Resp BP 36.9 C (98.4 F) 93 20 (!) 152/67 SpO2 Temp Source Heart Rate Source Patient Position 95 % Oral Monitor Sitting BP Location FiO2 (%) Left arm -- Physical Exam Vitals and nursing note reviewed. Constitutional: General: He is not in acute distress. Appearance: He is well-developed. HENT: Head: Normocephalic and atraumatic. Eyes: Conjunctiva/sclera: Conjunctivae normal. Cardiovascular: Rate and Rhythm: Normal rate and regular rhythm. Heart sounds: No murmur heard. Pulmonary: Effort: Pulmonary effort is normal. No respiratory distress. Breath sounds: Normal breath sounds. Abdominal: General: There is distension. Palpations: Abdomen is soft. Tenderness: There is abdominal tenderness (Mildly tender right mid abdomen). Musculoskeletal: General: No swelling. Cervical back: Neck supple. Comments: Right lower extremity amputation Skin: General: Skin is warm and dry. Capillary Refill: Capillary refill takes less than 2 seconds. Neurological: Mental Status: He is alert. Psychiatric: Mood and Affect: Mood normal. DIAGNOSTIC RESULTS RADIOLOGY (Per Emergency Physician): Interpretation per the Radiologist below, if available at the time of this note: CT abdomen pelvis w contrast Final Result Distended gallbladder with suspected gallbladder wall edema concerning for acute cholecystitis. Distended stomach with air-fluid level may be related. Please correlate clinically. Follow-up recommended. CTR Dr Woodall. Report Dictated on Electronically Signed By: Javy Urias MD Electronically Signed Date/Time: 10/18/2024 7:[address] chest angiogram w and/or wo IV contrast Final Result Impression:Very limited due to motion.. Consider repeat exam or VQ scan for persistent symptoms. Note made of distended stomach with air-fluid level. Report Dictated on Electronically Signed By: Javy Urias MD Electronically Signed Date/Time: 10/18/2024 7:05 PM EST US abdomen limited (Results Pending) LABS: Labs Reviewed CBC WITH AUTO DIFFERENTIAL - Abnormal Result Value Auto WBC 25.9 (*) RBC 4.28 Hemoglobin 11.6 (*) Hematocrit 36.8 MCV 86.0 MCH 27.1 MCHC 31.5 RDW 14.5 Platelets 373 MPV 9.8 COMPREHENSIVE METABOLIC PANEL - Abnormal SODIUM 137 POTASSIUM 4.1 CHLORIDE 103 CARBON DIOXIDE 21 (*) ANION GAP 13 UREA NITROGEN 24 (*) CREATININE 1.16 GLUCOSE 226 (*) CALCIUM 9.0 AST (SGOT) 50 (*) ALT 67 ALKALINE PHOSPHATASE 133 ALBUMIN 3.0 (*) BILIRUBIN, TOTAL 0.7 TOTAL PROTEIN 6.7 eGFR 55.1 (*) MANUAL DIFFERENTIAL - Abnormal Adjusted WBC 25.9 (*) Neutrophils % 86 (*) Bands % 4 (*) Lymphocytes % 2 (*) Atypical Lymphocytes % 3 (*) Monocytes % 6 Metamyelocytes % 1 (*) Absolute Neutrophil Count 23.2 (*) Segs Absolute 23.2 (*) Bands Absolute 0.9 (*) Lymphocytes Absolute 0.4 (*) Atypical Lymphs Absolute 0.8 (*) Monocytes Absolute 1.4 (*) Metamyelocytes Absolute 0.1 (*) RBC Morphology Normal WBC Morphology Normal PLT Morphology Normal Total Counted 200 Neutrophils Manual 172 Lymphocytes Manual 3 Monocytes Manual 11 Bands Manual 7 Metamyelocytes Manual 1 Atypical Lymphocytes Manual 6 LIPASE - Normal LIPASE 6 LACTIC ACID WITH REFLEX - Normal LACTIC ACID 2.2 HIGH SENSITIVITY TROPONIN, SERIAL BASELINE Troponin HS, Serial Baseline <3 HIGH SENSITIVITY TROPONIN, SERIAL, SECOND TEST Troponin HS, Serial Second <3 Troponin HS Delta, Baseline to Second COMPLETE URINALYSIS WITH REFLEX TO CULTURE Narrative: The following orders were created for panel order Complete Urinalysis with reflex to Culture. Procedure Abnormality Status --------- ------ Complete Urinalysis[[id number]] Please view results for these tests on the individual orders. COMPLETE URINALYSIS LACTIC ACID WITH REFLEX All other labs were within normal range or not returned as of this dictation. EMERGENCY DEPARTMENT COURSE and DIFFERENTIAL DIAGNOSIS/MDM: Vitals: Vitals: 10/18/24 1633 10/18/24 1852 10/18/24 1923 BP: (!) 152/67 134/63 131/62 BP Location: Left arm Right arm Patient Position: Sitting Lying Pulse: 93 90 92 Resp: 20 18 18 Temp: 36.9 C (98.4 F) TempSrc: Oral SpO2: 95% 95% (!) 92% Weight: 132 kg (290 lb) Height: 1.676 m (5' 6") Medications cefTRIAXone (Rocephin) 2,000 mg in sodium chloride 0.9 % 50 mL IVPB Mini-Bag Plus (has no administration in time range) metroNIDAZOLE (Flagyl) IVPB 500 mg (has no administration in time range) morphine injection 4 mg (4 mg IntraVENous Given 10/18/24 164) sodium chloride 0.9 % bolus 500 mL (0 mL IntraVENous Stopped 10/18/24 174) ondansetron (Zofran) injection 4 mg (4 mg IntraVENous Given 10/18/24 164) iopamidol (Isovue-370) 76 % injection 100 mL (100 mL IntraVENous Given 10/18/24 180) Aleks Coma Scale Best Eye Response: Spontaneous Best Verbal Response: Oriented Best Motor Response: Follows commands [place] Coma Scale Score: 15 This is a 58-year-old male patient with complaint of abdominal pain. Differential includes colitis, bowel obstruction perforation to name a few things. Labs reveal no signs of kidney injury LFTs all normal he does have a significant leukocytosis of 25.9. CT abdomen pelvis showing findings concerning for acute cholecystitis with gallbladder wall edema and a distended gallbladder. CT angiography was obtained as he was complaining of some chest pain, he is immobile and PE is also on the differential, this CT scan was very limited due to motion artifact. Although no more likely explanation is the acute cholecystitis. Covered with antibiotics Rocephin and Flagyl and will be admitted at this time. Surgery and hospitalist both consulted. Right upper quadrant ultrasound pending. I discussed findings with patient he was agreeable with plan. ED Course as of 10/18/241935Oct 18, [id number] Abhay lopez consult, gen surgery [FG] [address] Ackerman will admit [FG] ED Course User Index [FG] Dontrell Woodall DO Diagnoses as of 10/18/241935 Acute cholecystitis PROCEDURES: Unless otherwise noted below, none Procedures FINAL IMPRESSION 1. Acute cholecystitis DISPOSITION Admit 10/18/2024 07:34:50 PM PATIENT REFERRED TO: No follow-up provider specified. DISCHARGE MEDICATIONS: New Prescriptions No medications on file (Comment: Please note this report has been produced using speech recognition software and may contain errors related to that system including errors in grammar, punctuation, and spelling, as well as words and phrases that may be inappropriate. If there are any questions or concerns please feel free to contact the dictating provider for clarification.) Dontrell Woodall DO (electronically signed) Emergency Medicine Provider Dontrell Woodall DO 10/18/241935 Pt presents to er from [facility]. Pt presents with abd pain, diarrhea, chest pain. Pt presents aox4 speaking in full and complete sentences. documented in this encounter [facility] 10-18-2024 Emergency department Note EKG called [facility] 10-18-2024 Emergency department Triage note Pt presents to er from [facility]. Pt presents with abd pain, diarrhea, chest pain. Pt presents aox4 speaking in full and complete sentences. [facility] 10-18-2024 Physician Emergency department Note EMERGENCY DEPARTMENT ENCOUNTER Pt Name: Maria Luisa Jacinto Birthdate 1965 Date of evaluation: 10/18/2024 ED Provider: Dontrell Woodall DO CHIEF COMPLAINT Chief Complaint Patient presents with Abdominal Pain Pt presents to er from [facility]. Pt presents with abd pain, diarrhea, chest pain. Pt presents aox4 speaking in full and complete sentences. Chest Pain Nausea HISTORY OF PRESENT ILLNESS (Location/Symptom, Timing/Onset, Context/Setting, Quality, Duration, Modifying Factors, Severity) Note limiting factors. I wore appropriate PPE for the entirety of this encounter. HPI Maria Luisa Jacinto is a 58 y.o. who presents to the emergency department for evaluation of chest pain and abdominal pain. He started having some abdominal pain about 2 days ago, today he was feeling nauseated and threw up. He rates his abdominal pain as a 6 out of 10. He started having some chest pain earlier today, pressure sensation. He denies any fevers or chills. He does have some associated diarrhea. No history of DVT or PE. He is not hypoxic. Nursing Notes were reviewed. Limitations to history: None Outside historians: None REVIEW OF SYSTEMS Review of Systems Constitutional: Negative for chills and fever. HENT: Negative for ear pain and sore throat. Eyes: Negative for pain and visual disturbance. Respiratory: Negative for cough and shortness of breath. Cardiovascular: Positive for chest pain. Negative for palpitations. Gastrointestinal: Positive for abdominal pain, nausea and vomiting. Genitourinary: Negative for dysuria and hematuria. Musculoskeletal: Negative for arthralgias and back pain. Skin: Negative for color change and rash. Neurological: Negative for seizures and syncope. All other systems reviewed and are negative. Pertinent positives and negatives as per HPI 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) Acquired absence of other toe(s), unspecified side ([facility]) Anxiety disorder Bipolar 1 disorder ([facility]) Blood circulation, collateral Cellulitis chronic L lower leg COVID 12/08/2021 Depression Diabetes mellitus ([facility]) Type II, on insulin Disease of blood and blood forming organ Endometrial carcinoma ([facility]) 11/25/2020 Endometrial hyperplasia Foot ulcer ([facility]) Hx of blood clots RLE prior to amputation Hyperlipidemia Hypertension Lymphedema 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, RLE Morbidly obese ([facility]) Muscle weakness Osteomyelitis ([facility]) Osteomyelitis ([facility]) 2019 RLE Other lack of coordination Other specified soft tissue disorders Other symbolic dysfunctions Schizophrenia ([facility]) Sleep apnea no CPAP Venous insufficiency SURGICAL HISTORY Past Surgical History: Procedure Laterality Date ABCESS DRAINAGE Right 09/09/2018 FOOT; ACH COLONOSCOPY 09/19/[address] Hyde DILATION AND CURETTAGE OF UTERUS 05/18/2019 HYSTEROSCOPY 12/23/2021 LEG AMPUTATION THROUGH KNEE Right 06/16/2019 UPPER GASTROINTESTINAL ENDOSCOPY N/A 06/29/2023 Dr Sergio Sibley at [facility]; no specimens WISDOM TOOTH EXTRACTION CURRENT MEDICATIONS Previous Medications AMLODIPINE (NORVASC) 10 MG TABLET Take 1 tablet (10 mg) by mouth daily. ARIPIPRAZOLE (ABILIFY) 10 MG TABLET Every 24 hours. ASPIRIN 81 MG EC TABLET Take 1 tablet by mouth daily. ATORVASTATIN (LIPITOR) 10 MG TABLET Take 1 tablet by mouth daily. BISACODYL (DULCOLAX) 5 MG EC TABLET Take 5 mg by mouth 2 times daily as needed for constipation. Do not crush, chew, or split. CARVEDILOL (COREG) 25 MG TABLET Take 1 tablet (25 mg) by mouth in the morning and 1 tablet (25 mg) in the evening. Take with meals. FERROUS SULFATE 325 (65 FE) MG TABLET Take 1 tablet (325 mg) by mouth daily (with breakfast). FLUOXETINE (PROZAC) 40 MG CAPSULE Take 40 mg by mouth daily. GABAPENTIN (NEURONTIN) 100 MG CAPSULE Take 100 mg by mouth in the morning and 100 mg before bedtime. INSULIN GLARGINE (LANTUS) 100 UNIT/ML INJECTION Inject 45 Units under the skin 2 times daily. INSULIN REGULAR (HUMULIN R U-500) 500 UNIT/ML CONCENTRATED INJECTION Inject 90 Units under the skin daily (before lunch). INSULIN REGULAR (HUMULIN R U-500) 500 UNIT/ML CONCENTRATED INJECTION Inject 120 Units under the skin every morning (before breakfast). INSULIN REGULAR (HUMULIN R U-500) 500 UNIT/ML CONCENTRATED INJECTION Inject 100 Units under the skin daily (before dinner). INSULIN REGULAR (HUMULIN R) 500 UNIT/ML CONCENTRATED INJECTION Inject 130 Units under the skin 3 times daily. LISINOPRIL 40 MG TABLET Take 0.5 tablets (20 mg) by mouth daily. MAGNESIUM HYDROXIDE (MILK OF MAGNESIA) 400 MG/5ML SUSPENSION Take 30 mL by mouth Nightly. MEGESTROL (MEGACE) 20 MG TABLET Take 1 tablet by mouth in the morning and 1 tablet before bedtime. MELATONIN 10 MG TABLET Take 10 mg by mouth Nightly as needed (insomnia). METOCLOPRAMIDE (REGLAN) 10 MG TABLET Take 1 tablet (10 mg) by mouth 4 times daily (before meals and nightly). MULTIPLE VITAMIN (MULTIVITAMIN) CAPSULE Take 1 capsule by mouth daily. PANTOPRAZOLE (PROTONIX) 40 MG EC TABLET Take 40 mg by mouth. POLYETHYLENE GLYCOL, PEG, 3350 (GLYCOLAX) 17 GM/SCOOP POWDER Take 17 g by mouth daily. TORSEMIDE (DEMADEX) 10 MG TABLET Take 1 tablet (10 mg) by mouth daily. ALLERGIES Patient has no known allergies. FAMILY HISTORY Family History Problem Relation Name Age of Onset No Known Problems Mother No Known Problems Father SOCIAL HISTORY Social History Socioeconomic History Marital status: Single Tobacco Use Smoking status: Never Smokeless tobacco: Never Vaping Use Vaping status: Never Used Substance and Sexual Activity Alcohol use: No Drug use: Never 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 Health Transportation Needs: No Transportation Needs (01/01/2024) PRAPARE - Transportation Lack of Transportation (Medical): No Lack of Transportation (Non-Medical): No Intimate Partner Violence: Not At Risk (01/01/2024) Humiliation, Afraid, Rape, and Kick questionnaire Fear of Current or Ex-Partner: No Emotionally Abused: No Physically Abused: No Sexually Abused: No Housing Stability: Low Risk (01/01/2024) Housing Stability Vital Sign Unable to Pay for Housing in the Last Year: No Number of Places Lived in the Last Year: 1 Unstable Housing in the Last Year: No PHYSICAL EXAM ED Triage Vitals [10/18/24 1633] Temp Heart Rate Resp BP 36.9 C (98.4 F) 93 20 (!) 152/67 SpO2 Temp Source Heart Rate Source Patient Position 95 % Oral Monitor Sitting BP Location FiO2 (%) Left arm -- Physical Exam Vitals and nursing note reviewed. Constitutional: General: He is not in acute distress. Appearance: He is well-developed. HENT: Head: Normocephalic and atraumatic. Eyes: Conjunctiva/sclera: Conjunctivae normal. Cardiovascular: Rate and Rhythm: Normal rate and regular rhythm. Heart sounds: No murmur heard. Pulmonary: Effort: Pulmonary effort is normal. No respiratory distress. Breath sounds: Normal breath sounds. Abdominal: General: There is distension. Palpations: Abdomen is soft. Tenderness: There is abdominal tenderness (Mildly tender right mid abdomen). Musculoskeletal: General: No swelling. Cervical back: Neck supple. Comments: Right lower extremity amputation Skin: General: Skin is warm and dry. Capillary Refill: Capillary refill takes less than 2 seconds. Neurological: Mental Status: He is alert. Psychiatric: Mood and Affect: Mood normal. DIAGNOSTIC RESULTS RADIOLOGY (Per Emergency Physician): Interpretation per the Radiologist below, if available at the time of this note: CT abdomen pelvis w contrast Final Result Distended gallbladder with suspected gallbladder wall edema concerning for acute cholecystitis. Distended stomach with air-fluid level may be related. Please correlate clinically. Follow-up recommended. CTR Dr Woodall. Report Dictated on Electronically Signed By: Javy Urias MD Electronically Signed Date/Time: 10/18/2024 7:[address] chest angiogram w and/or wo IV contrast Final Result Impression:Very limited due to motion.. Consider repeat exam or VQ scan for persistent symptoms. Note made of distended stomach with air-fluid level. Report Dictated on Electronically Signed By: Javy Urias MD Electronically Signed Date/Time: 10/18/2024 7:05 PM EST US abdomen limited (Results Pending) LABS: Labs Reviewed CBC WITH AUTO DIFFERENTIAL - Abnormal Result Value Auto WBC 25.9 (*) RBC 4.28 Hemoglobin 11.6 (*) Hematocrit 36.8 MCV 86.0 MCH 27.1 MCHC 31.5 RDW 14.5 Platelets 373 MPV 9.8 COMPREHENSIVE METABOLIC PANEL - Abnormal SODIUM 137 POTASSIUM 4.1 CHLORIDE 103 CARBON DIOXIDE 21 (*) ANION GAP 13 UREA NITROGEN 24 (*) CREATININE 1.16 GLUCOSE 226 (*) CALCIUM 9.0 AST (SGOT) 50 (*) ALT 67 ALKALINE PHOSPHATASE 133 ALBUMIN 3.0 (*) BILIRUBIN, TOTAL 0.7 TOTAL PROTEIN 6.7 eGFR 55.1 (*) MANUAL DIFFERENTIAL - Abnormal Adjusted WBC 25.9 (*) Neutrophils % 86 (*) Bands % 4 (*) Lymphocytes % 2 (*) Atypical Lymphocytes % 3 (*) Monocytes % 6 Metamyelocytes % 1 (*) Absolute Neutrophil Count 23.2 (*) Segs Absolute 23.2 (*) Bands Absolute 0.9 (*) Lymphocytes Absolute 0.4 (*) Atypical Lymphs Absolute 0.8 (*) Monocytes Absolute 1.4 (*) Metamyelocytes Absolute 0.1 (*) RBC Morphology Normal WBC Morphology Normal PLT Morphology Normal Total Counted 200 Neutrophils Manual 172 Lymphocytes Manual 3 Monocytes Manual 11 Bands Manual 7 Metamyelocytes Manual 1 Atypical Lymphocytes Manual 6 LIPASE - Normal LIPASE 6 LACTIC ACID WITH REFLEX - Normal LACTIC ACID 2.2 HIGH SENSITIVITY TROPONIN, SERIAL BASELINE Troponin HS, Serial Baseline <3 HIGH SENSITIVITY TROPONIN, SERIAL, SECOND TEST Troponin HS, Serial Second <3 Troponin HS Delta, Baseline to Second COMPLETE URINALYSIS WITH REFLEX TO CULTURE Narrative: The following orders were created for panel order Complete Urinalysis with reflex to Culture. Procedure Abnormality Status --------- ------ Complete Urinalysis[[id number]] Please view results for these tests on the individual orders. COMPLETE URINALYSIS LACTIC ACID WITH REFLEX All other labs were within normal range or not returned as of this dictation. EMERGENCY DEPARTMENT COURSE and DIFFERENTIAL DIAGNOSIS/MDM: Vitals: Vitals: 10/18/24 1633 10/18/24 1852 10/18/24 1923 BP: (!) 152/67 134/63 131/62 BP Location: Left arm Right arm Patient Position: Sitting Lying Pulse: 93 90 92 Resp: 20 18 Temp: 36.9 C (98.4 F) TempSrc: Oral SpO2: 95% 95% (!) 92% Weight: 132 kg (290 lb) Height: 1.676 m (5' 6") Medications cefTRIAXone (Rocephin) 2,000 mg in sodium chloride 0.9 % 50 mL IVPB Mini-Bag Plus (has no administration in time range) metroNIDAZOLE (Flagyl) IVPB 500 mg (has no administration in time range) morphine injection 4 mg (4 mg IntraVENous Given 10/18/24 164) sodium chloride 0.9 % bolus 500 mL (0 mL IntraVENous Stopped 10/18/24 1741) ondansetron (Zofran) injection 4 mg (4 mg IntraVENous Given 10/18/24 1645) iopamidol (Isovue-370) 76 % injection 100 mL (100 mL IntraVENous Given 10/18/24 1806) Aleks Coma Scale Best Eye Response: Spontaneous Best Verbal Response: Oriented Best Motor Response: Follows commands [place] Coma Scale Score: 15 This is a 58-year-old male patient with complaint of abdominal pain. Differential includes colitis, bowel obstruction perforation to name a few things. Labs reveal no signs of kidney injury LFTs all normal he does have a significant leukocytosis of 25.9. CT abdomen pelvis showing findings concerning for acute cholecystitis with gallbladder wall edema and a distended gallbladder. CT angiography was obtained as he was complaining of some chest pain, he is immobile and PE is also on the differential, this CT scan was very limited due to motion artifact. Although no more likely explanation is the acute cholecystitis. Covered with antibiotics Rocephin and Flagyl and will be admitted at this time. Surgery and hospitalist both consulted. Right upper quadrant ultrasound pending. I discussed findings with patient he was agreeable with plan. ED Course as of 10/18/241935Oct 18, 202419[address] Blank will consult, gen surgery [FG] [address] Ackerman will admit [FG] ED Course User Index [FG] Dontrell Woodall DO Diagnoses as of 10/18/241935 Acute cholecystitis PROCEDURES: Unless otherwise noted below, none Procedures FINAL IMPRESSION 1. Acute cholecystitis DISPOSITION Admit 10/18/2024 07:34:50 PM PATIENT REFERRED TO: No follow-up provider specified. DISCHARGE MEDICATIONS: New Prescriptions No medications on file (Comment: Please note this report has been produced using speech recognition software and may contain errors related to that system including errors in grammar, punctuation, and spelling, as well as words and phrases that may be inappropriate. If there are any questions or concerns please feel free to contact the dictating provider for clarification.) Dontrell Woodall DO (electronically signed) Emergency Medicine Provider Dontrell Woodall DO 10/18/241935 [employer] 09-20-2024 Telephone encounter Note Faxed recommendation to [facility]. Thank you! [employer] 09-20-2024 Miscellaneous Notes Faxed recommendation to [facility]. Thank you! Very high doses with variability and history severe hypoglycemia- would not change doses for now Images from the original note were not included. Patient's BGL documented in this encounter [facility] 09-19-2024 Telephone encounter Note Very high doses with variability and history severe hypoglycemia- would not change doses for now [facility] [employer] Work Phone: 09-19-2024 Telephone encounter Note Images from the original note were not included. Patient's BGL [facility] 09-13-2024 Telephone encounter Note Faxed info. To [facility]. [phone] [facility] 09-13-2024 Miscellaneous Notes Faxed info. To [facility]. [phone] Keep doses the same for now thank you Images from the original note were not included. Patient's BGL documented in this encounter [facility] 09-11-2024 Telephone encounter Note Keep doses the same for now thank you [facility] [employer] Work Phone: 09-11-2024 Miscellaneous Notes Keep doses the same for now thank you Images from the original note were not included. Patient's BGL documented in this encounter [facility] 09-11-2024 Telephone encounter Note Images from the original note were not included. Patient's BGL [facility] 08-09-2024 Miscellaneous Notes There's a more recent BGL that you also advised no changes. I faxed over recommendation to [facility]. Thank you! Please keep doses the same thank you Images from the original note were not included. Patient's BGL documented in this encounter [facility] 08-09-2024 Telephone encounter Note There's a more recent BGL that you also advised no changes. I faxed over recommendation to [facility]. Thank you! [facility] 08-09-2024 Telephone encounter Note Faxed recommendation to [facility]. Thank you! [facility] 08-09-2024 Miscellaneous Notes Faxed recommendation to [facility]. Thank you! Somewhat improved; would not make any changes at this point thank you Images from the original note were not included. Patient's BGL documented in this encounter [facility] 08-08-2024 Telephone encounter Note Somewhat improved; would not make any changes at this point thank you [employer] Phone: 08-08-2024 Miscellaneous Notes Somewhat improved; would not make any changes at this point thank you Images from the original note were not included. Patient's BGL documented in this encounter [facility] 08-08-2024 Telephone encounter Note Images from the original note were not included. Patient's BGL [facility] 08-04-2024 Telephone encounter Note Please keep doses the same thank you [employer] Phone: 08-04-2024 Miscellaneous Notes Please keep doses the same thank you Images from the original note were not included. Patient's BGL documented in this encounter [facility] 08-03-2024 Telephone encounter Note Images from the original note were not included. Patient's BGL [facility] 07-18-2024 Note Addended by: RADHA BUSBY on: 07/18/2024 02:17 PM Modules accepted: Orders [facility] 07-18-2024 Note Addended by: RADHA BUSBY on: 07/18/2024 02:17 PM Modules accepted: Orders [facility] 07-18-2024 Note Addended by: RADHA BUSBY on: 07/18/2024 02:17 PM Modules accepted: Orders [facility] 07-18-2024 Note Addended by: RADHA BUSBY on: 07/18/2024 02:17 PM Modules accepted: Orders [facility] 07-18-2024 [facility]. I relayed the message below and she verbalized understanding. [facility] 07-18-2024 Miscellaneous Notes Addended by: RADHA BUSBY on: 07/18/2024 02:17 PM Modules accepted: Orders Called [facility] and spoke with nurse. I relayed the message below and she verbalized understanding. Increase lantus to 45 twice daily thank you Patient is currently taking Humulin R U500(130 units TID) and lantus(30 units BID). Please confirm current u500 doses thank you Images from the original note were not included. Patient's BGL documented in this encounter [facility] [employer] 07-18-2024 Telephone encounter Note Increase lantus to 45 twice daily thank you [facility] Work Phone: 07-18-2024 Telephone encounter Note Patient is currently taking Humulin R U500(130 units TID) and lantus(30 units BID). [facility] 07-17-2024 Telephone encounter Note Please confirm current u500 doses thank you [facility] 07-17-2024 Telephone encounter Note Images from the original note were not included. Patient's BGL [facility] 06-25-2024 Telephone encounter Note Faxed recommendation to [facility]([phone]) Thank you! [facility] 05-02-2024 Miscellaneous Notes Faxed recommendation to [facility]([phone]) Thank you! A lot of fluctuation and patient is prone to severe hypoglycemia so would not change dose thank you BS Log for 04/25/24 - 05/01/24 scanned into media for review. Please advise. Thank you. documented in this encounter [facility] 05-02-2024 Telephone encounter Note A lot of fluctuation and patient is prone to severe hypoglycemia so would not change dose thank you [employer] Phone: 05-02-2024 Telephone encounter Note BS Log for 04/25/24 - 05/01/24 scanned into media for review. Please advise. [facility] you[facility] Note Please ask to increase u500 insulin with meals to 85 units with meals thank you [employer] Phone: 02-24-2024 Miscellaneous Notes Please ask to increase u500 insulin with meals to 85 units with meals thank you [facility] returned call. Nabil Message released to patient as written. Radha Busby MA [employer] Signed 2:13 PM [facility] current DM insulin regimen. Nurse was unavailable and will call back. We have on file that patient is taking lantus 30 units two times daily and humulin R U500 70 units with meals. CAC can release message to confirm the doses. Please also inform them for future blood sugar logs to also send current med. List. Thank you! Patient's further questions if applicable: Nabil confirmed Pt's current DM insulin regimen is lantus 30 units two times daily and humulin R U500 70 units with meals. Nabil states she will fax over Pt's medication list and 2 weeks of BGL. Please advise Were all questions from office addressed or relayed to the patient from encounter: N/A Called [facility] to confirm current DM insulin regimen. Nurse was unavailable and will call back. We have on file that patient is taking lantus 30 units two times daily and humulin R U500 70 units with meals. CAC can release message to confirm the doses. Please also inform them for future blood sugar logs to also send current med. List. Thank you! Please see if we can get a the patient's current dm meds with the next fax so we can adjust. Thank you Images from the original note were not included. Patient's BGL documented in this encounter [facility] 02-23-2024 Telephone encounter Note Nabil returned call. Nabil Message released to patient as written. Radha Busby MA [employer] Signed 2:13 PM Called [facility] to confirm current DM insulin regimen. Nurse was unavailable and will call back. We have on file that patient is taking lantus 30 units two times daily and humulin R U500 70 units with meals. CAC can release message to confirm the doses. Please also inform them for future blood sugar logs to also send current med. List. Thank you! Patient's further questions if applicable: Nabil confirmed Pt's current DM insulin regimen is lantus 30 units two times daily and humulin R U500 70 units with meals. Nabil states she will fax over Pt's medication list and 2 weeks of BGL. Please advise Were all questions from office addressed or relayed to the patient from encounter: N/A [facility] 02-23-2024 Miscellaneous Notes Nabil returned call. Nabil Message released to patient as written. Radha Busby MA [employer] Signed 2:13 PM Called [facility] to confirm current DM insulin regimen. Nurse was unavailable and will call back. We have on file that patient is taking lantus 30 units two times daily and humulin R U500 70 units with meals. CAC can release message to confirm the doses. Please also inform them for future blood sugar logs to also send current med. List. Thank you! Patient's further questions if applicable: Nabil confirmed Pt's current DM insulin regimen is lantus 30 units two times daily and humulin R U500 70 units with meals. Nabil states she will fax over Pt's medication list and 2 weeks of BGL. Please advise Were all questions from office addressed or relayed to the patient from encounter: N/A Called [facility] to confirm current DM insulin regimen. Nurse was unavailable and will call back. We have on file that patient is taking lantus 30 units two times daily and humulin R U500 70 units with meals. CAC can release message to confirm the doses. Please also inform them for future blood sugar logs to also send current med. List. Thank you! Please see if we can get a the patient's current dm meds with the next fax so we can adjust. Thank you Images from the original note were not included. Patient's BGL documented in this encounter [employer] 02-23-2024 Telephone encounter Note Called [facility] to confirm current DM insulin regimen. Nurse was unavailable and will call back. We have on file that patient is taking lantus 30 units two times daily and humulin R U500 70 units with meals. CAC can release message to confirm the doses. Please also inform them for future blood sugar logs to also send current med. List. Thank you! [employer] 02-22-2024 Telephone encounter Note Please see if we can get a the patient's current dm meds with the next fax so we can adjust. Thank you [employer] Work Phone: 02-22-2024 Miscellaneous Notes Please see if we can get a the patient's current dm meds with the next fax so we can adjust. Thank you Images from the original note were not included. Patient's BGL documented in this encounter [facility] 02-22-2024 Telephone encounter Note Images from the original note were not included. Patient's BGL [facility] 02-11-2024 History of Presen t illness Narrative Visit type: Established patient History of Present Illness: HPI History of Present Illness: Will Jacinto is a 58 y.o. adult patient with significant PMH of morbid obesity, JOHN, diabetes, right leg amputation, bipolar schizophrenia, hyperandrogenism here for follow-up evaluation of a lung nodule. Patient seen in the lung nodule clinic last fall for a 7 mm right middle lobe nodule. Patient was hospitalized with complicated UTI/pyelonephritis.. CT abdomen showed a 7 mm nodule in his right middle lobe solid as pictured below. It was also present on CT chest from June 2023. He presents today to review most recent CT scan of his abdomen. Ongoing GI symptoms of nausea and is following with GI. CT abdomen showed the right middle lobe lung nodule to be stable and unchanged when compared to June. No growth for 8 months. No personal hx of cancer per patient report but chart does indicate endometrial carcinoma history, no family hx of cancer- family hx of DM, non smoker, reports second hand smoke exposure. No known work hx- reports he has received disability since age 19 due to mental challenges. He also has a history of JOHN. He reports his previous sleep study was greater than 10 years ago and that he has been off treatment for 10 years. He was referred to sleep medicine at last visit. Per chart patient refused follow-up. He denies all pulmonary symptoms including cough congestion chest tightness shortness of breath. Baseline Exercise tolerance/MMRC score( Bold ) MMRC Dyspnea Scale Grade Description of Breathlessness 0 I only get breathless with strenuous exercise. 1 I get short of breath when hurrying on level ground or walking up a slight hill. 2 On level ground, I walk slower than people of the same age because of breathlessness, or have to stop for breath when walking at my own pace. 3 I stop for breath after walking about 100 yards or after a few minutes on level ground. 4 I am too breathless to leave the house or I am breathless when dressing. === 01/22/24 === CT ABDOMEN PELVIS W CONTRAST - Impression - Questionable enhancement of the bilateral renal collecting system. Correlation with urinalysis is recommended. Otherwise no evidence of acute pathology within the abdomen or pelvis. Stable 8 mm solid pulmonary nodule in the right middle lobe dating back to CT from 06/28/2023. Continued follow-up per Fleischner criteria is recommended. 2017 - UPDATED FLEISCHNER SOCIETY GUIDELINES FOR MANAGEMENT OF SMALL PULMONARY NODULES DETECTED ON CT Note: Recommendations do not apply for lung cancer screening, patients with immunosuppression or with known cancer. Dimensions are average of long and short axis rounded to the millimeter SOLITARY NODULE: LOW RISK PATIENT <6mm - No follow up 6-8mm - 6-12 months, then consider 18-24 months >8mm - PET/CT, Bx or followup in 3 months SOLITARY NODULE: HIGH RISK PATIENT <6mm - Optional 6-12 months (suspicious morphology or upper lobe) 6-8mm - 6-12 months, then 18-24 months >8mm - PET/CT, Bx or followup in 3 months Report Dictated on Electronically Signed By: Brandon Morgan MD Electronically Signed Date/Time: 01/22/2024 4:54 AM EDT Pulmonary Functions Testing Results: No results found for: "FEV1", "FVC", "[id number]", "TLC", "DLCO" 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 other toe(s), unspecified side (HCC) Anxiety disorder Bipolar 1 disorder (HCC) Blood circulation, collateral Cellulitis chronic L lower leg COVID 12/08/2021 Depression Diabetes mellitus (HCC) Type II, on insulin Disease of blood and blood forming organ Endometrial carcinoma (HCC) 11/25/2020 Endometrial hyperplasia Foot ulcer (HCC) Hx of blood clots RLE prior to amputation Hyperlipidemia Hypertension Lymphedema 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, RLE Morbidly obese (HCC) Muscle weakness Osteomyelitis (HCC) Osteomyelitis (HCC) 2019 RLE Other lack of coordination Other specified soft tissue disorders Other symbolic dysfunctions Schizophrenia (HCC) Sleep apnea no CPAP Venous insufficiency Social History: Social History Socioeconomic History Marital status: Single Tobacco Use Smoking status: Never Smokeless tobacco: Never Vaping Use Vaping Use: Never used Substance and Sexual Activity Alcohol use: No Drug use: Never Social Determinants of Health Transportation Needs: No Transportation Needs (01/01/2024) PRAPARE - Transportation Lack of Transportation (Medical): No Lack of Transportation (Non-Medical): No Intimate Partner Violence: Not At Risk (01/01/2024) Humiliation, Afraid, Rape, and Kick questionnaire Fear of Current or Ex-Partner: No Emotionally Abused: No Physically Abused: No Sexually Abused: No Housing Stability: Low Risk (01/01/2024) Housing Stability Vital Sign Unable to Pay for Housing in the Last Year: No Number of Places Lived in the Last Year: 1 Unstable Housing in the Last Year: No Family History: Family History Problem Relation Name Age of Onset No Known Problems Mother No Known Problems Father ROS: Review of Systems Constitutional: Negative for appetite change, chills, fatigue and fever. HENT: Negative for congestion, postnasal drip, trouble swallowing and voice change. Eyes: Negative. Respiratory: Positive for apnea. Negative for cough and wheezing. ) Dry cough but no congestion or mucus Gastrointestinal: Positive for nausea. Endocrine: Negative. Genitourinary: Negative. Musculoskeletal: Positive for gait problem. Deedee lift, does not ambulate Skin: Negative. Neurological: Positive for weakness. Negative for dizziness. Hematological: Negative for adenopathy. Psychiatric/Behavioral: Negative for confusion. The patient is not nervous/anxious. Medications: Outpatient Encounter Medications as of 02/11/2024 Medication Sig Dispense Refill amLODIPine (Norvasc) 10 MG tablet Take 1 tablet (10 mg) by mouth daily. ARIPiprazole (Abilify) 10 MG tablet Every 24 hours. aspirin 81 MG EC tablet Take 1 tablet by mouth daily. atorvastatin (Lipitor) 10 MG tablet Take 1 tablet by mouth daily. bisacodyl (Dulcolax) 5 MG EC tablet Take 5 mg by mouth 2 times daily as needed for constipation. Do not crush, chew, or split. carvedilol (Coreg) 25 MG tablet Take 1 tablet (25 mg) by mouth in the morning and 1 tablet (25 mg) in the evening. Take with meals. ferrous sulfate 325 (65 Fe) MG tablet Take 1 tablet (325 mg) by mouth daily (with breakfast). FLUoxetine (PROzac) 40 MG capsule Take 40 mg by mouth daily. gabapentin (Neurontin) 100 MG capsule Take 100 mg by mouth in the morning and 100 mg before bedtime. insulin glargine (Lantus) 100 UNIT/ML injection Inject 30 Units under the skin 2 times daily. insulin regular (HumuLIN R U-500) 500 UNIT/ML CONCENTRATED injection Inject 90 Units under the skin daily (before lunch). insulin regular (HumuLIN R U-500) 500 UNIT/ML CONCENTRATED injection Inject 120 Units under the skin every morning (before breakfast). insulin regular (HumuLIN R U-500) 500 UNIT/ML CONCENTRATED injection Inject 100 Units under the skin daily (before dinner). insulin regular (HumuLIN R) 500 UNIT/ML CONCENTRATED injection Inject under the skin. 70 units daily with meals(TID) magnesium hydroxide (Milk of Magnesia) 400 MG/5ML suspension Take 30 mL by mouth Nightly. megestrol (Megace) 20 MG tablet Take 1 tablet by mouth in the morning and 1 tablet before bedtime. melatonin 10 MG tablet Take 10 mg by mouth Nightly as needed (insomnia). metoclopramide (Reglan) 10 MG tablet Take 1 tablet (10 mg) by mouth 4 times daily (before meals and nightly). Multiple Vitamin (multivitamin) capsule Take 1 capsule by mouth daily. pantoprazole (ProtoNix) 40 MG EC tablet Take 40 mg by mouth. polyethylene glycol, PEG, 3350 (Glycolax) 17 GM/SCOOP powder Take 17 g by mouth daily. torsemide (Demadex) 10 MG tablet Take 1 tablet (10 mg) by mouth daily. lisinopril 40 MG tablet Take 0.5 tablets (20 mg) by mouth daily. (Patient not taking: Reported on 02/11/2024) No facility-administered encounter medications on file as of 02/11/2024. Allergies: No Known Allergies Vital Signs: BP 131/78 (BP Location: Left arm, Patient Position: Sitting, BP Cuff Size: Adult) Pulse 79 Resp 14 Ht 5' 5.98" (1.676 m) Wt 290 lb (132 kg) SpO2 99% Comment: RA BMI 46.83 kg/m Physical Exam: Physical Exam Vitals and nursing note reviewed. Constitutional: Appearance: He is normal weight. He is ill-appearing. Comments: Sitting in wheelchair right above-knee amputation accompanied by aide with patient. Chronically ill-appearing cognitive delay HENT: Head: Normocephalic. Nose: Nose normal. Eyes: Pupils: Pupils are equal, round, and reactive to light. Cardiovascular: Rate and Rhythm: Normal rate and regular rhythm. Heart sounds: No murmur heard. Pulmonary: Effort: Pulmonary effort is normal. No respiratory distress. Breath sounds: No wheezing. Abdominal: General: There is no distension. Musculoskeletal: General: Normal range of motion. Cervical back: Normal range of motion. Comments: Right above-knee amp, above-knee amp deconditioned sitting in wheelchair with Deedee lift underneath him requires assistance to sit forward and move Skin: General: Skin is warm and dry. Coloration: Skin is not jaundiced or pale. Neurological: Mental Status: He is alert and oriented to person, place, and time. Psychiatric: Mood and Affect: Mood normal. Behavior: Behavior normal. Thought Content: Thought content normal. Judgment: Judgment normal. Assessment and Plan: Diagnosis Plan 1. Lung nodule CT chest wo IV contrast in 1 year. Stable for 8 months 7 mm rounded nonspiculated Plan follow-up in 1 year to complete surveillance. No growth follow-up will be needed. Should patient have another abdominal CT closer to next year we should be able to see it-asked pastry assistant to inform us if patient would have any additional GI testing. 2. JOHN (obstructive sleep apnea) Declines sleep med referral 3. Morbid obesity with BMI of 45.0-49.9, adult (HCC) JOHN previously not on treatment suspect hypoventilation-patient declines sleep medicine follow-up for treatment. Follow-up: 1 year On this date, I have spent 25 minutes reviewing previous test results and face to face with the patient discussing the diagnosis and importance of compliance with the treatment plans as well as documentation on the day of the visit. documented in this encounter [facility] 02-11-2024 Instructions Urszula Herring MA - 02/11/2024 10:10 AM EDT YOUR APPOINTMENT TODAY WAS WITH THE [facility] LUNG NODULE [facility], COPD CLINIC, PULMONARY AND SLEEP MEDICINE OFFICE. PLEASE CALL OUR OFFICE AT [phone] IF YOU HAVE NOT RECEIVED YOUR TEST RESULTS 7 DAYS AFTER TESTING IS COMPLETED. PLEASE REMEMBER TO REQUEST REFILLS AT YOUR OFFICE VISITS. PHONE/FAX REQUESTS REQUIRE 48-72 HOURS FOR RESPONSE. A FRIENDLY REMINDER COPAYS ARE DUE AT TIME OF SERVICE. THANK YOU. Our Patients Are Important! We want to improve and you can help. After your visit we want you to feel: Listened to, Respected and have your health care explained. You may receive a survey asking you about your visit. Please complete the survey. We will use your feedback to make improvements. COVID-19 VACCINATION INFORMATION: PH. [phone] [email or web address] [facility] Central Scheduling [phone] [facility] Sleep Scheduling [phone] documented in this encounter [facility] 01-28-2024 Emergency department Note Report called to Preethi Frias RN. Sonya Hill RN 01/28/2412 [facility] 01-28-2024 Emergency department Note Report called to Preethi Frias RN. Sonya Hill RN 01/28/2412 Report to GLYNN Almendarez. Maylin Nolan RN 01/27/242020 DM transport arranged. ETA 3-4 hours. Maylin Nolan RN 01/27/242018 Patient quickly ate his sack lunch and two diet cokes. Shortly after patient complains of stomach pain. Provider notified. Maylin Nolan RN 01/27/242005 Sack lunch provided. aMylin Nolan RN 01/27/241923 documented in this encounter [facility] 01-27-2024 Emergency department Note Report to GLYNN Almendarez. Maylin Nolan RN 01/27/242020 [facility] 01-27-2024 Emergency department Note DM transport arranged. ETA 3-4 hours. Maylin Nolan RN 01/27/242018 [facility] 01-27-2024 Hospital Discharg e tayla Low II, MD - 01/27/2024 8:18 PM EDT You were seen in the emergency department today for hypoglycemia. I spoke with your Endocrinology group, who advised some changes to your insulin regimen. Change your insulin regimen as follows: change your 200 units twice daily dose to 185 units twice daily, and change your 250 units once daily dose to 200 units once daily. Follow-up with your environmental marketing representative in the office within the next week. documented in this encounter [facility] 01-27-2024 Emergency department Note Patient quickly ate his sack lunch and two diet cokes. Shortly after patient complains of stomach pain. Provider notified. Maylin Nolan RN 01/27/242005 [facility] 01-27-2024 Emergency department Note Sack lunch provided. Maylin Nolan RN 01/27/241923 [facility] 01-26-2024 Emergency department Note Patient provided sack lunch per his request. Denise Terry RN 01/26/242229 [facility] 01-26-2024 Emergency department Note Patient provided sack lunch per his request. Denise Terry RN 01/26/242229 I did not see or evaluate this patient in the ED. Mark Couch PA-C 01/26/242127 EMERGENCY DEPARTMENT ENCOUNTER Pt Name: Will Jacinto Birthdate 1965 Date of evaluation: 01/26/2024 ED Provider: Art Zeng DO CHIEF COMPLAINT Chief Complaint Patient presents with Hypoglycemia Patient reports from [place] [facility] for low blood sugar. Facility states that it was 48. Patient was fed and EMS sugar was 76. On arrival to room BGM was 102. HISTORY OF PRESENT ILLNESS (Location/Symptom, Timing/Onset, Context/Setting, Quality, Duration, Modifying Factors, Severity) Note limiting factors. HPI Will Jacinto is a 58 y.o. adult who presents to the emergency department due to hypoglycemia. Blood sugar was 48 at [facility] prison, he says they gave him some pudding, milk and peanut butter crackers. Medics stated his sugar was in the 70s on their arrival. He is at 102 on arrival here. Says he has had some nausea and vomiting recently, has not vomited at all today. Not having abdominal pain. No fever. Says his oral intake has been decreased because of the recent nausea and vomiting. Takes insulin for his diabetes, no oral hypoglycemics. Nursing Notes were reviewed. REVIEW OF SYSTEMS All systems reviewed and negative except as noted above. 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) Acquired absence of other toe(s), unspecified side ([facility]) Anxiety disorder Bipolar 1 disorder ([facility]) Blood circulation, collateral Cellulitis chronic L lower leg COVID 12/08/2021 Depression Diabetes mellitus ([facility]) Type II, on insulin Disease of blood and blood forming organ Endometrial carcinoma ([facility]) 11/25/2020 Endometrial hyperplasia Foot ulcer ([facility]) Hx of blood clots RLE prior to amputation Hyperlipidemia Hypertension Lymphedema 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, RLE Morbidly obese ([facility]) Muscle weakness Osteomyelitis ([facility]) Osteomyelitis ([facility]) 2019 RLE Other lack of coordination Other specified soft tissue disorders Other symbolic dysfunctions Schizophrenia ([facility]) Sleep apnea no CPAP Venous insufficiency SURGICAL HISTORY Past Surgical History: Procedure Laterality Date ABCESS DRAINAGE Right 09/09/2018 FOOT; ACH COLONOSCOPY 09/19/[address] Hyde DILATION AND CURETTAGE OF UTERUS 05/18/2019 HYSTEROSCOPY 12/23/2021 LEG AMPUTATION THROUGH KNEE Right 06/16/2019 UPPER GASTROINTESTINAL ENDOSCOPY N/A 06/29/2023 Dr Sergio Sibley at [facility]; no specimens WISDOM TOOTH EXTRACTION CURRENT MEDICATIONS Previous Medications AMLODIPINE (NORVASC) 10 MG TABLET Take 1 tablet (10 mg) by mouth daily. ARIPIPRAZOLE (ABILIFY) 10 MG TABLET Every 24 hours. ASPIRIN 81 MG EC TABLET Take 1 tablet by mouth daily. ATORVASTATIN (LIPITOR) 10 MG TABLET Take 1 tablet by mouth daily. BISACODYL (DULCOLAX) 5 MG EC TABLET Take 5 mg by mouth 2 times daily as needed for constipation. Do not crush, chew, or split. CARVEDILOL (COREG) 25 MG TABLET Take 1 tablet (25 mg) by mouth in the morning and 1 tablet (25 mg) in the evening. Take with meals. CEPHALEXIN (KEFLEX) 500 MG CAPSULE Take 1 capsule (500 mg) by mouth 3 times daily for 5 days. FERROUS SULFATE 325 (65 FE) MG TABLET Take 1 tablet (325 mg) by mouth daily (with breakfast). FLUOXETINE (PROZAC) 40 MG CAPSULE Take 40 mg by mouth daily. GABAPENTIN (NEURONTIN) 100 MG CAPSULE Take 100 mg by mouth in the morning and 100 mg before bedtime. INSULIN REGULAR (HUMULIN R U-500) 500 UNIT/ML CONCENTRATED INJECTION Inject 90 Units under the skin daily (before lunch). INSULIN REGULAR (HUMULIN R U-500) 500 UNIT/ML CONCENTRATED INJECTION Inject 120 Units under the skin every morning (before breakfast). INSULIN REGULAR (HUMULIN R U-500) 500 UNIT/ML CONCENTRATED INJECTION Inject 100 Units under the skin daily (before dinner). LISINOPRIL 40 MG TABLET Take 0.5 tablets (20 mg) by mouth daily. MEGESTROL (MEGACE) 20 MG TABLET Take 1 tablet by mouth in the morning and 1 tablet before bedtime. MELATONIN 10 MG TABLET Take 10 mg by mouth Nightly as needed (insomnia). METOCLOPRAMIDE (REGLAN) 10 MG TABLET Take 1 tablet (10 mg) by mouth 4 times daily (before meals and nightly). ONDANSETRON (ZOFRAN) 4 MG TABLET Take 1 tablet (4 mg) by mouth in the morning and 1 tablet (4 mg) at noon and 1 tablet (4 mg) in the evening and 1 tablet (4 mg) before bedtime. Do all this for 3 days. PANTOPRAZOLE (PROTONIX) 40 MG EC TABLET Take 40 mg by mouth. POLYETHYLENE GLYCOL, PEG, 3350 (GLYCOLAX) 17 GM/SCOOP POWDER Take 17 g by mouth daily. TORSEMIDE (DEMADEX) 10 MG TABLET Take 1 tablet (10 mg) by mouth daily. ALLERGIES Patient has no known allergies. FAMILY HISTORY Family History Problem Relation Name Age of Onset No Known Problems Mother No Known Problems Father SOCIAL HISTORY Social History Socioeconomic History Marital status: Single Tobacco Use Smoking status: Never Smokeless tobacco: Never Vaping Use Vaping Use: Never used Substance and Sexual Activity Alcohol use: No Drug use: Never Social Determinants of Health Transportation Needs: No Transportation Needs (01/01/2024) PRAPARE - Transportation Lack of Transportation (Medical): No Lack of Transportation (Non-Medical): No Intimate Partner Violence: Not At Risk (01/01/2024) Humiliation, Afraid, Rape, and Kick questionnaire Fear of Current or Ex-Partner: No Emotionally Abused: No Physically Abused: No Sexually Abused: No Housing Stability: Low Risk (01/01/2024) Housing Stability Vital Sign Unable to Pay for Housing in the Last Year: No Number of Places Lived in the Last Year: 1 Unstable Housing in the Last Year: No PHYSICAL EXAM ED Triage Vitals Temp Pulse Resp BP -- -- -- -- SpO2 Temp src Heart Rate Source Patient Position -- -- -- -- BP Location FiO2 (%) -- -- General: Well-developed, well-nourished patient lying in bed who appears non-toxic. Head: Atraumatic, normocephalic. Eyes: Sclera anicteric. ENT: Mucous membranes moist. Heart: Regular rate and rhythm. Lungs: Normal respiratory pattern without conversational dyspnea or respiratory distress. Abdomen: Soft, non-tender, non-distended, no guarding or peritoneal signs. Neurologic: Awake and alert, normal speech and mental status. Moves all extremities equally well. No focal deficits or lateralizing signs. Psychiatric: Mood and affect appropriate. Skin: Warm and dry, no appreciable rash. Musculoskeletal: No peripheral edema. No signs of DVT. DIAGNOSTIC RESULTS/EMERGENCY DEPARTMENT COURSE and DIFFERENTIAL DIAGNOSIS/MDM: Vitals: Vitals: 01/26/248 01/26/242128 BP: 124/63 Pulse: 83 Resp: 16 Temp: 36.6 C (97.9 F) TempSrc: Oral SpO2: 100% Weight: 132 kg (290 lb) Height: 1.676 m (5' 6") EKG: EKG was reviewed by myself. Physician EKG interpretation can be found in [facility] LABS: Labs Reviewed POCT GLUCOSE METER UNSOLICITED RESULTS - Abnormal Result Value Glucose 102 (*) Narrative: Performed by: [facility], [address] [place], [place] [id number] CLIA ID: [id number] POCT GLUCOSE METER UNSOLICITED RESULTS - Abnormal Glucose 111 (*) Narrative: Performed by: [facility] [facility], [address] [place] [id number] CLIA ID: [id number] POCT GLUCOSE METER UNSOLICITED RESULTS - Abnormal Glucose 101 (*) Narrative: Performed by: [facility] [facility], [address] [place] [id number] CLIA ID: [id number] All other labs were within normal range or not returned as of this dictation. Medical Decision Making Problems Addressed: Hypoglycemia: acute illness or injury Serial Accu-Cheks were performed, all over 100. The patient was discharged and was provided with return precautions and instructions for outpatient follow up. Medications - No data to display PROCEDURES: Unless otherwise noted below, none Procedures FINAL IMPRESSION 1. Hypoglycemia PATIENT REFERRED TO: Jared Esteveschad [address] [facility] [address] [facility] [id number] Schedule an appointment as soon as possible for a visit DISCHARGE MEDICATIONS: New Prescriptions No medications on file (Comment: Please note this report has been produced using speech recognition software and may contain errors related to that system including errors in grammar, punctuation, and spelling, as well as words and phrases that may be inappropriate. If there are any questions or concerns please feel free to contact the dictating provider for clarification.) Art Zeng DO (electronically signed) Emergency Medicine Provider Art Zeng DO 01/26/242215 documented in this encounter [facility] 01-26-2024 Hospital Discharg e instructions Art Zeng DO - 01/26/2024 10:15 PM EDT Call your doctor in the morning to schedule follow up. Eat regular meals and snacks. Return to the ED for recurrent symptoms or if any other problems arise. The following attachments cannot be sent through Care Everywhere.Low Blood Sugar Discharge Instructions, Adult (Swiss)documented in this encounter [facility] 01-26-2024 Physician Emergency department Note I did not see or evaluate this patient in the ED. Mark Couch PA-C 01/26/242127 [facility] Work Phone: 01-26-2024 Physician Emergency department Note EMERGENCY DEPARTMENT ENCOUNTER Pt Name: Will Jacinto Birthdate 1965 Date of evaluation: 01/26/2024 ED Provider: Art Zeng DO CHIEF COMPLAINT Chief Complaint Patient presents with Hypoglycemia Patient reports from [place] [facility] for low blood sugar. Facility states that it was 48. Patient was fed and EMS sugar was 76. On arrival to room BGM was 102. HISTORY OF PRESENT ILLNESS (Location/Symptom, Timing/Onset, Context/Setting, Quality, Duration, Modifying Factors, Severity) Note limiting factors. HPI Will Jacinto is a 58 y.o. adult who presents to the emergency department due to hypoglycemia. Blood sugar was 48 at [facility] prison, he says they gave him some pudding, milk and peanut butter crackers. Medics stated his sugar was in the 70s on their arrival. He is at 102 on arrival here. Says he has had some nausea and vomiting recently, has not vomited at all today. Not having abdominal pain. No fever. Says his oral intake has been decreased because of the recent nausea and vomiting. Takes insulin for his diabetes, no oral hypoglycemics. Nursing Notes were reviewed. REVIEW OF SYSTEMS All systems reviewed and negative except as noted above. 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) Acquired absence of other toe(s), unspecified side ([facility]) Anxiety disorder Bipolar 1 disorder ([facility]) Blood circulation, collateral Cellulitis chronic L lower leg COVID 12/08/2021 Depression Diabetes mellitus ([facility]) Type II, on insulin Disease of blood and blood forming organ Endometrial carcinoma ([facility]) 11/25/2020 Endometrial hyperplasia Foot ulcer ([facility]) Hx of blood clots RLE prior to amputation Hyperlipidemia Hypertension Lymphedema 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, RLE Morbidly obese ([facility]) Muscle weakness Osteomyelitis (HCC) Osteomyelitis (HCC) 2019 RLE Other lack of coordination Other specified soft tissue disorders Other symbolic dysfunctions Schizophrenia ([facility]) Sleep apnea no CPAP Venous insufficiency SURGICAL HISTORY Past Surgical History: Procedure Laterality Date ABCESS DRAINAGE Right 09/09/2018 FOOT; ACH COLONOSCOPY 09/19/[address] Hyde DILATION AND CURETTAGE OF UTERUS 05/18/2019 HYSTEROSCOPY 12/23/2021 LEG AMPUTATION THROUGH KNEE Right 06/16/2019 UPPER GASTROINTESTINAL ENDOSCOPY N/A 06/29/2023 Dr Sergio Sibley at [facility]; no specimens WISDOM TOOTH EXTRACTION CURRENT MEDICATIONS Previous Medications AMLODIPINE (NORVASC) 10 MG TABLET Take 1 tablet (10 mg) by mouth daily. ARIPIPRAZOLE (ABILIFY) 10 MG TABLET Every 24 hours. ASPIRIN 81 MG EC TABLET Take 1 tablet by mouth daily. ATORVASTATIN (LIPITOR) 10 MG TABLET Take 1 tablet by mouth daily. BISACODYL (DULCOLAX) 5 MG EC TABLET Take 5 mg by mouth 2 times daily as needed for constipation. Do not crush, chew, or split. CARVEDILOL (COREG) 25 MG TABLET Take 1 tablet (25 mg) by mouth in the morning and 1 tablet (25 mg) in the evening. Take with meals. CEPHALEXIN (KEFLEX) 500 MG CAPSULE Take 1 capsule (500 mg) by mouth 3 times daily for 5 days. FERROUS SULFATE 325 (65 FE) MG TABLET Take 1 tablet (325 mg) by mouth daily (with breakfast). FLUOXETINE (PROZAC) 40 MG CAPSULE Take 40 mg by mouth daily. GABAPENTIN (NEURONTIN) 100 MG CAPSULE Take 100 mg by mouth in the morning and 100 mg before bedtime. INSULIN REGULAR (HUMULIN R U-500) 500 UNIT/ML CONCENTRATED INJECTION Inject 90 Units under the skin daily (before lunch). INSULIN REGULAR (HUMULIN R U-500) 500 UNIT/ML CONCENTRATED INJECTION Inject 120 Units under the skin every morning (before breakfast). INSULIN REGULAR (HUMULIN R U-500) 500 UNIT/ML CONCENTRATED INJECTION Inject 100 Units under the skin daily (before dinner). LISINOPRIL 40 MG TABLET Take 0.5 tablets (20 mg) by mouth daily. MEGESTROL (MEGACE) 20 MG TABLET Take 1 tablet by mouth in the morning and 1 tablet before bedtime. MELATONIN 10 MG TABLET Take 10 mg by mouth Nightly as needed (insomnia). METOCLOPRAMIDE (REGLAN) 10 MG TABLET Take 1 tablet (10 mg) by mouth 4 times daily (before meals and nightly). ONDANSETRON (ZOFRAN) 4 MG TABLET Take 1 tablet (4 mg) by mouth in the morning and 1 tablet (4 mg) at noon and 1 tablet (4 mg) in the evening and 1 tablet (4 mg) before bedtime. Do all this for 3 days. PANTOPRAZOLE (PROTONIX) 40 MG EC TABLET Take 40 mg by mouth. POLYETHYLENE GLYCOL, PEG, 3350 (GLYCOLAX) 17 GM/SCOOP POWDER Take 17 g by mouth daily. TORSEMIDE (DEMADEX) 10 MG TABLET Take 1 tablet (10 mg) by mouth daily. ALLERGIES Patient has no known allergies. FAMILY HISTORY Family History Problem Relation Name Age of Onset No Known Problems Mother No Known Problems Father SOCIAL HISTORY Social History Socioeconomic History Marital status: Single Tobacco Use Smoking status: Never Smokeless tobacco: Never Vaping Use Vaping Use: Never used Substance and Sexual Activity Alcohol use: No Drug use: Never Social Determinants of Health Transportation Needs: No Transportation Needs (01/01/2024) PRAPARE - Transportation Lack of Transportation (Medical): No Lack of Transportation (Non-Medical): No Intimate Partner Violence: Not At Risk (01/01/2024) Humiliation, Afraid, Rape, and Kick questionnaire Fear of Current or Ex-Partner: No Emotionally Abused: No Physically Abused: No Sexually Abused: No Housing Stability: Low Risk (01/01/2024) Housing Stability Vital Sign Unable to Pay for Housing in the Last Year: No Number of Places Lived in the Last Year: 1 Unstable Housing in the Last Year: No PHYSICAL EXAM ED Triage Vitals Temp Pulse Resp BP -- -- -- -- SpO2 Temp src Heart Rate Source Patient Position -- -- -- -- BP Location FiO2 (%) -- -- General: Well-developed, well-nourished patient lying in bed who appears non-toxic. Head: Atraumatic, normocephalic. Eyes: Sclera anicteric. ENT: Mucous membranes moist. Heart: Regular rate and rhythm. Lungs: Normal respiratory pattern without conversational dyspnea or respiratory distress. Abdomen: Soft, non-tender, non-distended, no guarding or peritoneal signs. Neurologic: Awake and alert, normal speech and mental status. Moves all extremities equally well. No focal deficits or lateralizing signs. Psychiatric: Mood and affect appropriate. Skin: Warm and dry, no appreciable rash. Musculoskeletal: No peripheral edema. No signs of DVT. DIAGNOSTIC RESULTS/EMERGENCY DEPARTMENT COURSE and DIFFERENTIAL DIAGNOSIS/MDM: Vitals: Vitals: 01/26/24212701/26/242128 BP: 124/63 Pulse: 83 Resp: 16 Temp: 36.6 C (97.9 F) TempSrc: Oral SpO2: 100% Weight: 132 kg (290 lb) Height: 1.676 m (5' 6") EKG: EKG was reviewed by myself. Physician EKG interpretation can be found in [facility] LABS: Labs Reviewed POCT GLUCOSE METER UNSOLICITED RESULTS - Abnormal Result Value Glucose 102 (*) Narrative: Performed by: [facility], [address] [place] [id number] CLIA ID: [id number] POCT GLUCOSE METER UNSOLICITED RESULTS - Abnormal Glucose 111 (*) Narrative: Performed by: [facility], [address] [place] [address], [facility] [address] CLIA ID: [id number] POCT GLUCOSE METER UNSOLICITED RESULTS - Abnormal Glucose 101 (*) Narrative: Performed by: [facility], [address] [place] [address], [facility] [address] CLIA ID: [id number] All other labs were within normal range or not returned as of this dictation. Medical Decision Making Problems Addressed: Hypoglycemia: acute illness or injury Serial Accu-Cheks were performed, all over 100. The patient was discharged and was provided with return precautions and instructions for outpatient follow up. Medications - No data to display PROCEDURES: Unless otherwise noted below, none Procedures FINAL IMPRESSION 1. Hypoglycemia PATIENT REFERRED TO: Jared Guzman [address] [facility] [address] [facility] [id number] Schedule an appointment as soon as possible for a visit DISCHARGE MEDICATIONS: New Prescriptions No medications on file (Comment: Please note this report has been produced using speech recognition software and may contain errors related to that system including errors in grammar, punctuation, and spelling, as well as words and phrases that may be inappropriate. If there are any questions or concerns please feel free to contact the dictating provider for clarification.) Art Zeng DO (electronically signed) Emergency Medicine Provider Art Zeng DO 01/26/242215 [facility] 01-24-2024 Telephone encounter Note Pt again appeared on ED [facility] for CT AP 01/22/24; noting stable 8mm nodule; unchanged from 08/2023 report. Pt to keep appt for fu with Herber Palmerson 02/11/24. Navigators to follow. [facility] 01-24-2024 Miscellaneous Notes Pt again appeared on ED [facility] for CT AP 01/22/24; noting stable 8mm nodule; unchanged from 08/2023 report. Pt to keep appt for fu with Herberchava Palmerson 02/11/24. Navigators to follow. Defer CT chest (imaging has been cancelled) Keep appt schedule 02/11/24 to review next steps. Pt appeared on ED [facility] search for lung nodules after CT AP 12/31/23 revealed the following: LOWER CHEST: An 8 mm nodule is present within the right middle lobe. This is unchanged since 08/08/2023. Referral: known to [facility]; Herber Ramos [facility] imaging n/a Pt is documented as never smoker Additional Risk Factors: na Planning CT low dose fu 01/06/24 will send to provider to confirm plan for fu. Pt has scheduled appt with Herber Ramos 02/11/24. documented in this encounter [facility] 01-22-2024 Emergency department Note EMERGENCY DEPARTMENT ENCOUNTER Pt Name: Maria Luisa Jacinto Birthdate 1965 Date of evaluation: 01/22/2024 ED Provider: Jaquan Morris DO CHIEF COMPLAINT Chief Complaint Patient presents with Abdominal Pain Vomiting Pt presents to er from [facility] for nausea and abd pain. Pt presents aox4 speaking in full and complete sentences. Pt states he has been sick since 2 weeks prior. Pt has recent urinary catheter placed due t urinary retention per pt. Catheter placed 1 week ago. HISTORY OF PRESENT ILLNESS (Location/Symptom, Timing/Onset, Context/Setting, Quality, Duration, Modifying Factors, Severity) Note limiting factors. I wore appropriate PPE for the entirety of this encounter. Maria Luisa Jacinto is a 58 y.o. who identifies as male who presents to the emergency department with chief complaint of nausea and abdominal pain. The patient had a recent urinary catheter placed due to urinary retention per patient patient denies fever chills. The patient has had nausea and multiple episodes of vomiting patient denies any melena medic easier hematemesis Nursing Notes were reviewed. Limitations to history: None Outside historians: None REVIEW OF SYSTEMS Review of Systems Pertinent positives and negatives as per HPI. 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) Acquired absence of other toe(s), unspecified side (HCC) Anxiety disorder Bipolar 1 disorder ([facility]) Blood circulation, collateral Cellulitis chronic L lower leg COVID 12/08/2021 Depression Diabetes mellitus ([facility]) Type II, on insulin Disease of blood and blood forming organ Endometrial carcinoma ([facility]) 11/25/2020 Endometrial hyperplasia Foot ulcer ([facility]) Hx of blood clots RLE prior to amputation Hyperlipidemia Hypertension Lymphedema 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, RLE Morbidly obese ([facility]) Muscle weakness Osteomyelitis ([facility]) Osteomyelitis ([facility]) 2019 RLE Other lack of coordination Other specified soft tissue disorders Other symbolic dysfunctions Schizophrenia ([facility]) Sleep apnea no CPAP Venous insufficiency SURGICAL HISTORY Past Surgical History: Procedure Laterality Date ABCESS DRAINAGE Right 09/09/2018 FOOT; ACH COLONOSCOPY 09/19/[address] Hyde DILATION AND CURETTAGE OF UTERUS 05/18/2019 HYSTEROSCOPY 12/23/2021 LEG AMPUTATION THROUGH KNEE Right 06/16/2019 UPPER GASTROINTESTINAL ENDOSCOPY N/A 06/29/2023 Dr Sergio Sibley at [facility]; no specimens WISDOM TOOTH EXTRACTION CURRENT MEDICATIONS Previous Medications AMLODIPINE (NORVASC) 10 MG TABLET Take 1 tablet (10 mg) by mouth daily. ARIPIPRAZOLE (ABILIFY) 10 MG TABLET Every 24 hours. ASPIRIN 81 MG EC TABLET Take 1 tablet by mouth daily. ATORVASTATIN (LIPITOR) 10 MG TABLET Take 1 tablet by mouth daily. BISACODYL (DULCOLAX) 5 MG EC TABLET Take 5 mg by mouth 2 times daily as needed for constipation. Do not crush, chew, or split. CARVEDILOL (COREG) 25 MG TABLET Take 1 tablet (25 mg) by mouth in the morning and 1 tablet (25 mg) in the evening. Take with meals. FERROUS SULFATE 325 (65 FE) MG TABLET Take 1 tablet (325 mg) by mouth daily (with breakfast). FLUOXETINE (PROZAC) 40 MG CAPSULE Take 40 mg by mouth daily. GABAPENTIN (NEURONTIN) 100 MG CAPSULE Take 100 mg by mouth in the morning and 100 mg before bedtime. INSULIN REGULAR (HUMULIN R U-500) 500 UNIT/ML CONCENTRATED INJECTION Inject 90 Units under the skin daily (before lunch). INSULIN REGULAR (HUMULIN R U-500) 500 UNIT/ML CONCENTRATED INJECTION Inject 120 Units under the skin every morning (before breakfast). INSULIN REGULAR (HUMULIN R U-500) 500 UNIT/ML CONCENTRATED INJECTION Inject 100 Units under the skin daily (before dinner). LISINOPRIL 40 MG TABLET Take 0.5 tablets (20 mg) by mouth daily. MEGESTROL (MEGACE) 20 MG TABLET Take 1 tablet by mouth in the morning and 1 tablet before bedtime. MELATONIN 10 MG TABLET Take 10 mg by mouth Nightly as needed (insomnia). METOCLOPRAMIDE (REGLAN) 10 MG TABLET Take 1 tablet (10 mg) by mouth 4 times daily (before meals and nightly). PANTOPRAZOLE (PROTONIX) 40 MG EC TABLET Take 40 mg by mouth. POLYETHYLENE GLYCOL, PEG, 3350 (GLYCOLAX) 17 GM/SCOOP POWDER Take 17 g by mouth daily. TORSEMIDE (DEMADEX) 10 MG TABLET Take 1 tablet (10 mg) by mouth daily. ALLERGIES Patient has no known allergies. FAMILY HISTORY Family History Problem Relation Name Age of Onset No Known Problems Mother No Known Problems Father SOCIAL HISTORY Social History Socioeconomic History Marital status: Single Tobacco Use Smoking status: Never Smokeless tobacco: Never Vaping Use Vaping Use: Never used Substance and Sexual Activity Alcohol use: No Drug use: Never Social Determinants of Health Transportation Needs: No Transportation Needs (01/01/2024) PRAPARE - Transportation Lack of Transportation (Medical): No Lack of Transportation (Non-Medical): No Intimate Partner Violence: Not At Risk (01/01/2024) Humiliation, Afraid, Rape, and Kick questionnaire Fear of Current or Ex-Partner: No Emotionally Abused: No Physically Abused: No Sexually Abused: No Housing Stability: Low Risk (01/01/2024) Housing Stability Vital Sign Unable to Pay for Housing in the Last Year: No Number of Places Lived in the Last Year: 1 Unstable Housing in the Last Year: No SCREENINGS PHYSICAL EXAM ED Triage Vitals [01/22/24 0123] Temp Heart Rate Resp BP 36.7 C (98 F) 88 14 (!) 194/88 SpO2 Temp Source Heart Rate Source Patient Position 98 % Oral -- Sitting BP Location FiO2 (%) Left arm -- Physical Exam Vitals and nursing note reviewed. Constitutional: General: He is not in acute distress. Appearance: He is well-developed. He is obese. He is ill-appearing. HENT: Head: Normocephalic and atraumatic. Eyes: Conjunctiva/sclera: Conjunctivae normal. Cardiovascular: Rate and Rhythm: Normal rate and regular rhythm. Heart sounds: No murmur heard. Pulmonary: Effort: Pulmonary effort is normal. No respiratory distress. Breath sounds: Normal breath sounds. Abdominal: Palpations: Abdomen is soft. Tenderness: There is no abdominal tenderness. Comments: Mild tenderness in all 4 quadrants. Genitourinary: Comments: The patient is anatomically female identifies as male Musculoskeletal: General: No swelling. Cervical back: Neck supple. Skin: General: Skin is warm and dry. Capillary Refill: Capillary refill takes less than 2 seconds. Neurological: Mental Status: He is alert. Psychiatric: Mood and Affect: Mood normal. DIAGNOSTIC RESULTS Interpretation per the Radiologist below, if available at the time of this note: CT abdomen pelvis w contrast Final Result Questionable enhancement of the bilateral renal collecting system. Correlation with urinalysis is recommended. Otherwise no evidence of acute pathology within the abdomen or pelvis. Stable 8 mm solid pulmonary nodule in the right middle lobe dating back to CT from 06/28/2023. Continued follow-up per Fleischner criteria is recommended. 2017 - UPDATED FLEISCHNER SOCIETY GUIDELINES FOR MANAGEMENT OF SMALL PULMONARY NODULES DETECTED ON CT Note: Recommendations do not apply for lung cancer screening, patients with immunosuppression or with known cancer. Dimensions are average of long and short axis rounded to the millimeter SOLITARY NODULE: LOW RISK PATIENT <6mm - No follow up 6-8mm - 6-12 months, then consider 18-24 months >8mm - PET/CT, Bx or followup in 3 months SOLITARY NODULE: HIGH RISK PATIENT <6mm - Optional 6-12 months (suspicious morphology or upper lobe) 6-8mm - 6-12 months, then 18-24 months >8mm - PET/CT, Bx or followup in 3 months Report Dictated on Electronically Signed By: Brandon Morgan MD Electronically Signed Date/Time: 01/22/2024 4:54 AM EDT ED BEDSIDE ULTRASOUND: Performed by ED Physician - none LABS: Labs Reviewed CBC WITH AUTO DIFFERENTIAL - Abnormal Result Value Auto WBC 10.0 RBC 4.11 Hemoglobin 11.3 (*) Hematocrit 35.6 MCV 86.6 MCH 27.5 MCHC 31.7 RDW 14.3 Platelets 511 (*) MPV 10.3 nRBC 0.0 Neutrophils Relative 77.8 Lymphocytes Relative 14.3 (*) Monocytes Relative 5.9 Eosinophils Relative 0.8 Basophils Relative 0.5 Immature Grans % 0.7 Neutrophils Absolute 7.8 (*) Lymphocytes Absolute 1.4 Monocytes Absolute 0.6 Eosinophils Absolute 0.1 Basophils Absolute 0.1 Immature Grans Absolute 0.1 (*) COMPLETE URINALYSIS - Abnormal Color, Urine Light Yellow Clarity, Urine Clear pH, Urine 8.0 Leukocytes, Urine 75 (*) Nitrite, Urine Negative Protein, Urine 100 (*) Glucose, Urine Normal Bilirubin, Urine Negative Ketones, Urine Negative Urobilinogen, Urine Normal Blood, Urine 1.0 (*) RBC, Urine 26-50 (*) WBC, Urine 6-10 (*) Squamous Epithelial, Urine 0-2 Bacteria, Urine Few (*) Mucus, Urine Few SPECIFIC GRAVITY OF URINE (NUMERIC) 1.013 LIPASE - Normal LIPASE 41 LACTIC ACID WITH REFLEX - Normal LACTIC ACID 0.7 COMPREHENSIVE METABOLIC PANEL SODIUM 136 POTASSIUM 4.0 CHLORIDE 100 CARBON DIOXIDE 25 ANION GAP 11 UREA NITROGEN 13 CREATININE 0.61 GLUCOSE 81 CALCIUM 9.6 AST (SGOT) 26 ALT 32 ALKALINE PHOSPHATASE 121 ALBUMIN 4.2 BILIRUBIN, TOTAL 0.5 TOTAL PROTEIN 7.5 eGFR >90.0 COMPLETE URINALYSIS WITH REFLEX TO CULTURE Narrative: The following orders were created for panel order Urinalysis Complete with reflex to Culture. Procedure Abnormality Status --------- ------ Complete Urinalysis[[id number]] Abnormal Final result Please view results for these tests on the individual orders. All other labs were within normal range or not returned as of this dictation. EMERGENCY DEPARTMENT COURSE and DIFFERENTIAL DIAGNOSIS/MDM: Vitals: Vitals: 01/22/24 0123 01/22/24 0125 01/22/24 0549 01/22/24 0600 BP: (!) 194/88 (!) 163/75 BP Location: Left arm Right arm Patient Position: Sitting Sitting Pulse: 88 88 87 Resp: 14 20 Temp: 36.7 C (98 F) TempSrc: Oral SpO2: 98% 98% 98% 96% This is a 58-year-old patient who identifies as male who presents to the emergency department with nausea and abdominal pain. Patient had a catheter placed recently/about 1 week ago and he has had increased lower abdominal pain with dysuria. The patient denies any melena hematochezia or hematemesis. Differential diagnosis includes but not limited to urinary tract infection versus other intra-abdominal process. The patient had basic lab work obtained which showed a lactic acid of 0.7, CBC was within normal limits except for the hemoglobin of 11.3 Urinalysis showed 6-10 white cells with few bacteria normal amount of epithelial cells, lipase was normal comprehensive metabolic panel normal Patient had a CT of the abdomen which showed enhancement of the bilateral renal collecting system The plan is to give the patient 1 g of Rocephin and discharged the patient on Keflex to treat urinary tract infection The patient's vital signs show up normal heart rate blood pressures have been stable the patient will be discharged home Vitals: 01/22/24599 BP: Pulse: 87 Resp: Temp: SpO2: 96% Diagnoses as of 01/22/24630 Nausea and vomiting, unspecified vomiting type Cystitis Medications sodium chloride 0.9 % bolus 1,000 mL (0 mL IntraVENous Stopped 01/22/24409) ondansetron (Zofran) injection 4 mg (4 mg IntraVENous Given 01/22/24309) iopamidol (Isovue-370) 76 % injection 75 mL (75 mL IntraVENous Given 01/22/24412) cefTRIAXone (Rocephin) 1,000 mg in sodium chloride 0.9 % 50 mL IVPB Mini-Bag Plus (1,000 mg IntraVENous New Bag 01/22/24 0546) REVAL: CRITICAL CARE TIME None CONSULTS: None PROCEDURES: Unless otherwise noted below, none Procedures Patients symptoms are consistent with sepsis, severe sepsis, or septic shock (If yes use ".sepsiscoremeasure"): Patient did not have a fever his blood pressure has been normotensive to hypertensive there is no tachycardia FINAL IMPRESSION 1. Nausea and vomiting, unspecified vomiting type 2. Cystitis DISPOSITION Discharge 01/22/2024 05:54:09 AM PATIENT REFERRED TO: Jared Karely [address] [facility] [id number] Schedule an appointment as soon as possible for a visit DISCHARGE MEDICATIONS: New Prescriptions CEPHALEXIN (KEFLEX) 500 MG CAPSULE Take 1 capsule (500 mg) by mouth 3 times daily for 5 days. ONDANSETRON (ZOFRAN) 4 MG TABLET Take 1 tablet (4 mg) by mouth in the morning and 1 tablet (4 mg) at noon and 1 tablet (4 mg) in the evening and 1 tablet (4 mg) before bedtime. Do all this for 3 days. (Comment: Please note this report has been produced using speech recognition software and may contain errors related to that system including errors in grammar, punctuation, and spelling, as well as words and phrases that may be inappropriate. If there are any questions or concerns please feel free to contact the dictating provider for clarification.) Jaquan Morris DO (electronically signed) Emergency Medicine Provider Jaquan Morris DO 01/22/24 0633 Pt presents to er from [facility] for abd pain. documented in this encounter [facility] 01-22-2024 Emergency department Triage note Pt presents to er from [facility] for abd pain. [facility] 01-22-2024 Physician Emergency department Note EMERGENCY DEPARTMENT ENCOUNTER Pt Name: Maria Luisa Jacinto Birthdate 1965 Date of evaluation: 01/22/2024 ED Provider: Jaquan Morris DO CHIEF COMPLAINT Chief Complaint Patient presents with Abdominal Pain Vomiting Pt presents to er from [facility] for nausea and abd pain. Pt presents aox4 speaking in full and complete sentences. Pt states he has been sick since 2 weeks prior. Pt has recent urinary catheter placed due t urinary retention per pt. Catheter placed 1 week ago. HISTORY OF PRESENT ILLNESS (Location/Symptom, Timing/Onset, Context/Setting, Quality, Duration, Modifying Factors, Severity) Note limiting factors. I wore appropriate PPE for the entirety of this encounter. Maria Luisa Jacinto is a 58 y.o. who identifies as male who presents to the emergency department with chief complaint of nausea and abdominal pain. The patient had a recent urinary catheter placed due to urinary retention per patient patient denies fever chills. The patient has had nausea and multiple episodes of vomiting patient denies any melena medic easier hematemesis Nursing Notes were reviewed. Limitations to history: None Outside historians: None REVIEW OF SYSTEMS Review of Systems Pertinent positives and negatives as per HPI. 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) Acquired absence of other toe(s), unspecified side (HCC) Anxiety disorder Bipolar 1 disorder ([facility]) Blood circulation, collateral Cellulitis chronic L lower leg COVID 12/08/2021 Depression Diabetes mellitus ([facility]) Type II, on insulin Disease of blood and blood forming organ Endometrial carcinoma ([facility]) 11/25/2020 Endometrial hyperplasia Foot ulcer ([facility]) Hx of blood clots RLE prior to amputation Hyperlipidemia Hypertension Lymphedema 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, RLE Morbidly obese ([facility]) Muscle weakness Osteomyelitis (HCC) Osteomyelitis (HCC) 2019 RLE Other lack of coordination Other specified soft tissue disorders Other symbolic dysfunctions Schizophrenia ([facility]) Sleep apnea no CPAP Venous insufficiency SURGICAL HISTORY Past Surgical History: Procedure Laterality Date ABCESS DRAINAGE Right 09/09/2018 FOOT; ACH COLONOSCOPY 09/19/[address] Hyde DILATION AND CURETTAGE OF UTERUS 05/18/2019 HYSTEROSCOPY 12/23/2021 LEG AMPUTATION THROUGH KNEE Right 06/16/2019 UPPER GASTROINTESTINAL ENDOSCOPY N/A 06/29/2023 Dr Sergio Sibley at [facility]; no specimens WISDOM TOOTH EXTRACTION CURRENT MEDICATIONS Previous Medications AMLODIPINE (NORVASC) 10 MG TABLET Take 1 tablet (10 mg) by mouth daily. ARIPIPRAZOLE (ABILIFY) 10 MG TABLET Every 24 hours. ASPIRIN 81 MG EC TABLET Take 1 tablet by mouth daily. ATORVASTATIN (LIPITOR) 10 MG TABLET Take 1 tablet by mouth daily. BISACODYL (DULCOLAX) 5 MG EC TABLET Take 5 mg by mouth 2 times daily as needed for constipation. Do not crush, chew, or split. CARVEDILOL (COREG) 25 MG TABLET Take 1 tablet (25 mg) by mouth in the morning and 1 tablet (25 mg) in the evening. Take with meals. FERROUS SULFATE 325 (65 FE) MG TABLET Take 1 tablet (325 mg) by mouth daily (with breakfast). FLUOXETINE (PROZAC) 40 MG CAPSULE Take 40 mg by mouth daily. GABAPENTIN (NEURONTIN) 100 MG CAPSULE Take 100 mg by mouth in the morning and 100 mg before bedtime. INSULIN REGULAR (HUMULIN R U-500) 500 UNIT/ML CONCENTRATED INJECTION Inject 90 Units under the skin daily (before lunch). INSULIN REGULAR (HUMULIN R U-500) 500 UNIT/ML CONCENTRATED INJECTION Inject 120 Units under the skin every morning (before breakfast). INSULIN REGULAR (HUMULIN R U-500) 500 UNIT/ML CONCENTRATED INJECTION Inject 100 Units under the skin daily (before dinner). LISINOPRIL 40 MG TABLET Take 0.5 tablets (20 mg) by mouth daily. MEGESTROL (MEGACE) 20 MG TABLET Take 1 tablet by mouth in the morning and 1 tablet before bedtime. MELATONIN 10 MG TABLET Take 10 mg by mouth Nightly as needed (insomnia). METOCLOPRAMIDE (REGLAN) 10 MG TABLET Take 1 tablet (10 mg) by mouth 4 times daily (before meals and nightly). PANTOPRAZOLE (PROTONIX) 40 MG EC TABLET Take 40 mg by mouth. POLYETHYLENE GLYCOL, PEG, 3350 (GLYCOLAX) 17 GM/SCOOP POWDER Take 17 g by mouth daily. TORSEMIDE (DEMADEX) 10 MG TABLET Take 1 tablet (10 mg) by mouth daily. ALLERGIES Patient has no known allergies. FAMILY HISTORY Family History Problem Relation Name Age of Onset No Known Problems Mother No Known Problems Father SOCIAL HISTORY Social History Socioeconomic History Marital status: Single Tobacco Use Smoking status: Never Smokeless tobacco: Never Vaping Use Vaping Use: Never used Substance and Sexual Activity Alcohol use: No Drug use: Never Social Determinants of Health Transportation Needs: No Transportation Needs (01/01/2024) PRAPARE - Transportation Lack of Transportation (Medical): No Lack of Transportation (Non-Medical): No Intimate Partner Violence: Not At Risk (01/01/2024) Humiliation, Afraid, Rape, and Kick questionnaire Fear of Current or Ex-Partner: No Emotionally Abused: No Physically Abused: No Sexually Abused: No Housing Stability: Low Risk (01/01/2024) Housing Stability Vital Sign Unable to Pay for Housing in the Last Year: No Number of Places Lived in the Last Year: 1 Unstable Housing in the Last Year: No SCREENINGS PHYSICAL EXAM ED Triage Vitals [01/22/24 0123] Temp Heart Rate Resp BP 36.7 C (98 F) 88 14 (!) 194/88 SpO2 Temp Source Heart Rate Source Patient Position 98 % Oral -- Sitting BP Location FiO2 (%) Left arm -- Physical Exam Vitals and nursing note reviewed. Constitutional: General: He is not in acute distress. Appearance: He is well-developed. He is obese. He is ill-appearing. HENT: Head: Normocephalic and atraumatic. Eyes: Conjunctiva/sclera: Conjunctivae normal. Cardiovascular: Rate and Rhythm: Normal rate and regular rhythm. Heart sounds: No murmur heard. Pulmonary: Effort: Pulmonary effort is normal. No respiratory distress. Breath sounds: Normal breath sounds. Abdominal: Palpations: Abdomen is soft. Tenderness: There is no abdominal tenderness. Comments: Mild tenderness in all 4 quadrants. Genitourinary: Comments: The patient is anatomically female identifies as male Musculoskeletal: General: No swelling. Cervical back: Neck supple. Skin: General: Skin is warm and dry. Capillary Refill: Capillary refill takes less than 2 seconds. Neurological: Mental Status: He is alert. Psychiatric: Mood and Affect: Mood normal. DIAGNOSTIC RESULTS Interpretation per the Radiologist below, if available at the time of this note: CT abdomen pelvis w contrast Final Result Questionable enhancement of the bilateral renal collecting system. Correlation with urinalysis is recommended. Otherwise no evidence of acute pathology within the abdomen or pelvis. Stable 8 mm solid pulmonary nodule in the right middle lobe dating back to CT from 06/28/2023. Continued follow-up per Fleischner criteria is recommended. 2017 - UPDATED FLEISCHNER SOCIETY GUIDELINES FOR MANAGEMENT OF SMALL PULMONARY NODULES DETECTED ON CT Note: Recommendations do not apply for lung cancer screening, patients with immunosuppression or with known cancer. Dimensions are average of long and short axis rounded to the millimeter SOLITARY NODULE: LOW RISK PATIENT <6mm - No follow up 6-8mm - 6-12 months, then consider 18-24 months >8mm - PET/CT, Bx or followup in 3 months SOLITARY NODULE: HIGH RISK PATIENT <6mm - Optional 6-12 months (suspicious morphology or upper lobe) 6-8mm - 6-12 months, then 18-24 months >8mm - PET/CT, Bx or followup in 3 months Report Dictated on Electronically Signed By: Brandon Morgan MD Electronically Signed Date/Time: 01/22/2024 4:54 AM EDT ED BEDSIDE ULTRASOUND: Performed by ED Physician - none LABS: Labs Reviewed CBC WITH AUTO DIFFERENTIAL - Abnormal Result Value Auto WBC 10.0 RBC 4.11 Hemoglobin 11.3 (*) Hematocrit 35.6 MCV 86.6 MCH 27.5 MCHC 31.7 RDW 14.3 Platelets 511 (*) MPV 10.3 nRBC 0.0 Neutrophils Relative 77.8 Lymphocytes Relative 14.3 (*) Monocytes Relative 5.9 Eosinophils Relative 0.8 Basophils Relative 0.5 Immature Grans % 0.7 Neutrophils Absolute 7.8 (*) Lymphocytes Absolute 1.4 Monocytes Absolute 0.6 Eosinophils Absolute 0.1 Basophils Absolute 0.1 Immature Grans Absolute 0.1 (*) COMPLETE URINALYSIS - Abnormal Color, Urine Light Yellow Clarity, Urine Clear pH, Urine 8.0 Leukocytes, Urine 75 (*) Nitrite, Urine Negative Protein, Urine 100 (*) Glucose, Urine Normal Bilirubin, Urine Negative Ketones, Urine Negative Urobilinogen, Urine Normal Blood, Urine 1.0 (*) RBC, Urine 26-50 (*) WBC, Urine 6-10 (*) Squamous Epithelial, Urine 0-2 Bacteria, Urine Few (*) Mucus, Urine Few SPECIFIC GRAVITY OF URINE (NUMERIC) 1.013 LIPASE - Normal LIPASE 41 LACTIC ACID WITH REFLEX - Normal LACTIC ACID 0.7 COMPREHENSIVE METABOLIC PANEL SODIUM 136 POTASSIUM 4.0 CHLORIDE 100 CARBON DIOXIDE 25 ANION GAP 11 UREA NITROGEN 13 CREATININE 0.61 GLUCOSE 81 CALCIUM 9.6 AST (SGOT) 26 ALT 32 ALKALINE PHOSPHATASE 121 ALBUMIN 4.2 BILIRUBIN, TOTAL 0.5 TOTAL PROTEIN 7.5 eGFR >90.0 COMPLETE URINALYSIS WITH REFLEX TO CULTURE Narrative: The following orders were created for panel order Urinalysis Complete with reflex to Culture. Procedure Abnormality Status --------- ------ Complete Urinalysis[[id number]] Abnormal Final result Please view results for these tests on the individual orders. All other labs were within normal range or not returned as of this dictation. EMERGENCY DEPARTMENT COURSE and DIFFERENTIAL DIAGNOSIS/MDM: Vitals: Vitals: 01/22/24 0123 01/22/24 0125 01/22/24 0549 01/22/24 0600 BP: (!) 194/88 (!) 163/75 BP Location: Left arm Right arm Patient Position: Sitting Sitting Pulse: 88 88 87 Resp: 14 20 Temp: 36.7 C (98 F) TempSrc: Oral SpO2: 98% 98% 98% 96% This is a 58-year-old patient who identifies as male who presents to the emergency department with nausea and abdominal pain. Patient had a catheter placed recently/about 1 week ago and he has had increased lower abdominal pain with dysuria. The patient denies any melena hematochezia or hematemesis. Differential diagnosis includes but not limited to urinary tract infection versus other intra-abdominal process. The patient had basic lab work obtained which showed a lactic acid of 0.7, CBC was within normal limits except for the hemoglobin of 11.3 Urinalysis showed 6-10 white cells with few bacteria normal amount of epithelial cells, lipase was normal comprehensive metabolic panel normal Patient had a CT of the abdomen which showed enhancement of the bilateral renal collecting system The plan is to give the patient 1 g of Rocephin and discharged the patient on Keflex to treat urinary tract infection The patient's vital signs show up normal heart rate blood pressures have been stable the patient will be discharged home Vitals: 01/22/24 0600 BP: Pulse: 87 Resp: Temp: SpO2: 96% Diagnoses as of 01/22/24 0631 Nausea and vomiting, unspecified vomiting type Cystitis Medications sodium chloride 0.9 % bolus 1,000 mL (0 mL IntraVENous Stopped 01/22/24409) ondansetron (Zofran) injection 4 mg (4 mg IntraVENous Given 01/22/24 0310) iopamidol (Isovue-370) 76 % injection 75 mL (75 mL IntraVENous Given 01/22/24 041) cefTRIAXone (Rocephin) 1,000 mg in sodium chloride 0.9 % 50 mL IVPB Mini-Bag Plus (1,000 mg IntraVENous New Bag 01/22/24 0546) REVAL: CRITICAL CARE TIME None CONSULTS: None PROCEDURES: Unless otherwise noted below, none Procedures Patients symptoms are consistent with sepsis, severe sepsis, or septic shock (If yes use ".sepsiscoremeasure"): Patient did not have a fever his blood pressure has been normotensive to hypertensive there is no tachycardia FINAL IMPRESSION 1. Nausea and vomiting, unspecified vomiting type 2. Cystitis DISPOSITION Discharge 01/22/2024 05:54:09 AM PATIENT REFERRED TO: Jared Guzman [address] [facility] [address] [facility] [id number] Schedule an appointment as soon as possible for a visit DISCHARGE MEDICATIONS: New Prescriptions CEPHALEXIN (KEFLEX) 500 MG CAPSULE Take 1 capsule (500 mg) by mouth 3 times daily for 5 days. ONDANSETRON (ZOFRAN) 4 MG TABLET Take 1 tablet (4 mg) by mouth in the morning and 1 tablet (4 mg) at noon and 1 tablet (4 mg) in the evening and 1 tablet (4 mg) before bedtime. Do all this for 3 days. (Comment: Please note this report has been produced using speech recognition software and may contain errors related to that system including errors in grammar, punctuation, and spelling, as well as words and phrases that may be inappropriate. If there are any questions or concerns please feel free to contact the dictating provider for clarification.) Jaquan Morris DO (electronically signed) Emergency Medicine Provider Jaquan Morris DO 01/22/[address] [facility] 01-21-2024 Telephone encounter Note Called SNF and spoke to Marques who will leave a message for Suri. Notified them the the pts care can be moved to the [place] office, and to just let the office know after her upcoming appt. [facility] 01-21-2024 Miscellaneous Notes Called SNF and spoke to Marques who will leave a message for Suri. Notified them the the pts care can be moved to the [place] office, and to just let the office know after her upcoming appt. Called SNF and spoke to Quiana who stated that the person that I need to talk to has left for the day and requested that I called tomorrow. Name of caller: Suri Contact phone number: [phone] Relationship to Patient: [facility] Provider: MD Jesus Practice: [facility] Chief Complaint/Reason for Call: Suri called in to see if Pt's F/U appt could be moved to the [place] location. Scheduling is into Jul. [facility] did advise Suri and she stated she will keep the scheduled appt at [facility] location, but would like to know if Pt can be scheduled at the [place] location for his next f/u appt. Please advise Best time of day caller can be reached: Any Patient advised that office/PCP has 24-48 business hours to return their call: N/A documented in this encounter [facility] 01-20-2024 Telephone encounter Note Called SNF and spoke to Quiana who stated that the person that I need to talk to has left for the day and requested that I called tomorrow. [facility] 01-20-2024 Telephone encounter Note Name of caller: Suri Contact phone number: [phone] Relationship to Patient: [facility] Provider: MD Jesus Practice: [facility] Endocrinology Chief Complaint/Reason for Call: Suri called in to see if Pt's F/U appt could be moved to the [place] location. Scheduling is into Jul. [facility] did advise Suri and she stated she will keep the scheduled appt at [facility] location, but would like to know if Pt can be scheduled at the [place] location for his next f/u appt. Please advise Best time of day caller can be reached: Any Patient advised that office/PCP has 24-48 business hours to return their call: N/A [facility] 01-20-2024 Telephone encounter Note Faxed recommendation to [facility]([phone]). [facility] 01-20-2024 Miscellaneous Notes Faxed recommendation to [facility]([phone]). Please keep doses the same thank you Images from the original note were not included. Patient's BGL documented in this encounter [facility] 01-19-2024 Telephone encounter Note Please keep doses the same thank you [facility] Work Phone: 01-19-2024 Telephone encounter Note Images from the original note were not included. Patient's BGL [facility] 01-04-2024 Telephone encounter Note Defer CT chest (imaging has been cancelled) Keep appt schedule 02/11/24 to review next steps. [facility] 01-04-[address]er [address] chest (imaging has been cancelled) Keep appt schedule 02/11/24 to review next steps. Pt appeared on ED nuance search for lung nodules after CT AP 12/31/23 revealed the following: LOWER CHEST: An 8 mm nodule is present within the right middle lobe. This is unchanged since 08/08/2023. Referral: known to [facility]; Her[facility] imaging n/a Pt is documented as never smoker Additional Risk Factors: na Planning CT low dose fu 01/06/24 will send to provider to confirm plan for fu. Pt has scheduled appt with Herberchava Ramos 02/11/24. documented in this encounter [facility] 01-03-2024 Telephone encounter Note Pt appeared on ED nuance search for lung nodules after CT AP 12/31/23 revealed the following: LOWER CHEST: An 8 mm nodule is present within the right middle lobe. This is unchanged since 08/08/2023. Referral: known to [facility]; Herber Richard [facility] imaging n/a Pt is documented as never smoker Additional Risk Factors: na Planning CT low dose fu 01/06/24 will send to provider to confirm plan for fu. Pt has scheduled appt with Herber Richard 02/11/24. [facility] 12-29-2023 Emergency department Note Hans Larkin here for transfer back to facility. Sera Noguera RN 12/29/23 1009 [facility] 12-29-2023 Emergency department Note Hans Larkin here for transfer back to facility. Sera Noguera RN 12/29/23 1009 Report from offload medic, pt assisted using using bedpan at this time. Awaiting squad DC back to Denise Sutherland RN 12/29/23 0748 DM approx cook pickled meat 830a AFTAB Hernandez 12/29/23 0634 Pt passed PO challenge w/o difficulty. Todd Damon 12/29/23 0143 EMERGENCY DEPARTMENT ENCOUNTER Pt Name: Maria Luisa Jacinto Birthdate 1965 Date of evaluation: 12/28/2023 ED Provider: Ramsey Zavaleta DO CHIEF COMPLAINT Chief Complaint Patient presents with Nausea Vomiting Pt arrived by EMS from [facility] due to N/V for 1 month. Upon assessment pt is A&OX$ msps intact - CP + abd pain - sob . Pt is currently - vomiting. HISTORY OF PRESENT ILLNESS (Location/Symptom, Timing/Onset, Context/Setting, Quality, Duration, Modifying Factors, Severity) Note limiting factors. I wore appropriate PPE for the entirety of this encounter. HPI Maria Luisa Jacinto is a 58 y.o. who presents to the emergency department 1 week of general malaise and intermittent nausea and vomiting. Patient last vomited this afternoon total of 2 NBNB episodes today. He also describes having mild generalized abdominal pain and intermittent diarrhea during this timeframe. He is a resident at [facility] where his sugars are monitored regularly and run in the 300s. He is compliant with his diabetic medication regimen. Nursing Notes were reviewed. Limitations to history: None Outside historians: None REVIEW OF SYSTEMS Review of Systems Constitutional: Negative for fever. HENT: Negative for congestion. Respiratory: Negative for cough and shortness of breath. Cardiovascular: Negative for chest pain. Gastrointestinal: Positive for diarrhea, nausea and vomiting. All other systems reviewed and are negative. Pertinent positives and negatives as per HPI. 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) Acquired absence of other toe(s), unspecified side ([facility] Anxiety disorder Bipolar 1 disorder ([facility]) Blood circulation, collateral Cellulitis chronic L lower leg COVID 12/08/2021 Depression Diabetes mellitus ([facility]) Type II, on insulin Disease of blood and blood forming organ Endometrial carcinoma ([facility]) 11/25/2020 Endometrial hyperplasia Foot ulcer ([facility]) Hx of blood clots RLE prior to amputation Hyperlipidemia Hypertension Lymphedema 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, RLE Morbidly obese ([facility]) Muscle weakness Osteomyelitis ([facility]) Osteomyelitis ([facility]) 2019 RLE Other lack of coordination Other specified soft tissue disorders Other symbolic dysfunctions Schizophrenia ([facility]) Sleep apnea no CPAP Venous insufficiency SURGICAL HISTORY Past Surgical History: Procedure Laterality Date ABCESS DRAINAGE Right 09/09/2018 FOOT; [facility] COLONOSCOPY 09/19/[address] Hyde DILATION AND CURETTAGE OF UTERUS 05/18/2019 HYSTEROSCOPY 12/23/2021 LEG AMPUTATION THROUGH KNEE Right 06/16/2019 UPPER GASTROINTESTINAL ENDOSCOPY N/A 06/29/2023 Dr Sergio Sibley at [facility]; no specimens WISDOM TOOTH EXTRACTION CURRENT MEDICATIONS Previous Medications ACETAMINOPHEN (TYLENOL) 325 MG TABLET Take 650 mg by mouth every 4 hours as needed for mild pain (1-3). ARIPIPRAZOLE (ABILIFY) 10 MG TABLET Every 24 hours. ASPIRIN 81 MG EC TABLET Take 1 tablet by mouth daily. ATORVASTATIN (LIPITOR) 10 MG TABLET Take 1 tablet by mouth daily. BISACODYL (DULCOLAX) 5 MG EC TABLET Take 5 mg by mouth 2 times daily as needed for constipation. Do not crush, chew, or split. CINNAMON 500 MG CAPSULE Take 2,000 mg by mouth daily. CLOTRIMAZOLE (LOTRIMIN) 1 % CREAM Apply topically 2 times daily. DILTIAZEM CD (CARDIZEM CD) 180 MG 24 HR CAPSULE Take 180 mg by mouth daily. FLUOXETINE (PROZAC) 40 MG CAPSULE Take 40 mg by mouth daily. GABAPENTIN (NEURONTIN) 100 MG CAPSULE Take 100 mg by mouth in the morning and 100 mg before bedtime. INSULIN REGULAR (HUMULIN R U-500) 500 UNIT/ML CONCENTRATED INJECTION Inject 250 Units under the skin every morning (before breakfast). Do not start before October 17, 2023. INSULIN REGULAR (HUMULIN R U-500) 500 UNIT/ML CONCENTRATED INJECTION Inject 150 Units under the skin daily with supper. INSULIN REGULAR (HUMULIN R U-500) 500 UNIT/ML CONCENTRATED INJECTION Inject 150 Units under the skin daily (before lunch). INSULIN REGULAR (HUMULIN R) 500 UNIT/ML CONCENTRATED INJECTION 250 units before breakfast/200 units before lunch and dinner LACTOBACILLUS ACID-PECTIN (ACIDOPHILUS/CITRUS PECTIN) TABLET Take 1 tablet by mouth in the morning and 1 tablet in the evening. LISINOPRIL 40 MG TABLET Take 0.5 tablets (20 mg) by mouth daily. LORATADINE 10 MG CAPSULE Take by mouth. MAGNESIUM HYDROXIDE (MILK OF MAGNESIA CONCENTRATE) 2400 MG/10ML SUSPENSION SUSPENSION Every 24 hours. MEGESTROL (MEGACE) 20 MG TABLET Take 1 tablet by mouth in the morning and 1 tablet before bedtime. MELATONIN 10 MG TABLET Take 10 mg by mouth Nightly as needed (insomnia). METOPROLOL TARTRATE (LOPRESSOR) 25 MG TABLET Take 1 tablet by mouth in the morning and 1 tablet before bedtime. MICONAZOLE (MICOTIN) 2 % POWDER Apply topically 2 times daily. PANTOPRAZOLE (PROTONIX) 40 MG EC TABLET Take 40 mg by mouth. POLYETHYLENE GLYCOL, PEG, 3350 (GLYCOLAX) 17 GM/SCOOP POWDER Take 17 g by mouth daily. ALLERGIES Patient has no known allergies. FAMILY HISTORY Family History Problem Relation Name Age of Onset No Known Problems Mother No Known Problems Father SOCIAL HISTORY Social History Socioeconomic History Marital status: Single Tobacco Use Smoking status: Never Smokeless tobacco: Never Vaping Use Vaping Use: Never used Substance and Sexual Activity Alcohol use: No Drug use: Never Social Determinants of Health Intimate Partner Violence: Not At Risk (08/18/2023) Humiliation, Afraid, Rape, and Kick questionnaire Fear of Current or Ex-Partner: No Emotionally Abused: No Physically Abused: No Sexually Abused: No SCREENINGS PHYSICAL EXAM ED Triage Vitals [12/28/23 2314] Temp Heart Rate Resp BP 36.4 C (97.6 F) 80 16 138/85 SpO2 Temp Source Heart Rate Source Patient Position 99 % Oral Monitor Sitting BP Location FiO2 (%) Left arm -- Physical Exam Vitals reviewed. Constitutional: General: He is not in acute distress. Appearance: He is obese. He is not ill-appearing, toxic-appearing or diaphoretic. HENT: Head: Normocephalic and atraumatic. Right Ear: External ear normal. Left Ear: External ear normal. Nose: Nose normal. Mouth/Throat: Mouth: Mucous membranes are dry. Eyes: General: No scleral icterus. Right eye: No discharge. Left eye: No discharge. Extraocular Movements: Extraocular movements intact. Cardiovascular: Rate and Rhythm: Normal rate. Pulses: Normal pulses. Pulmonary: Effort: Pulmonary effort is normal. No respiratory distress. Breath sounds: No wheezing or rhonchi. Abdominal: General: Abdomen is flat. Palpations: Abdomen is soft. Tenderness: There is abdominal tenderness (mild, diffuse). There is no guarding or rebound. Musculoskeletal: General: No tenderness, deformity or signs of injury. Cervical back: Normal range of motion. Comments: Remote R AKA Skin: General: Skin is warm and dry. Neurological: General: No focal deficit present. Mental Status: He is alert and oriented to person, place, and time. Psychiatric: Mood and Affect: Mood normal. DIAGNOSTIC RESULTS RADIOLOGY (Per Emergency Physician): Interpretation per the Radiologist below, if available at the time of this note: No orders to display LABS: Labs Reviewed BASIC METABOLIC PANEL CBC WITH AUTO DIFFERENTIAL COMPLETE URINALYSIS WITH REFLEX TO CULTURE Narrative: The following orders were created for panel order Complete Urinalysis with reflex to Culture. Procedure Abnormality Status --------- ------ Complete Urinalysis[[id number]] Please view results for these tests on the individual orders. BETA HYDROXYBUTYRATE COMPLETE URINALYSIS POCT GLUCOSE METER All other labs were within normal range or not returned as of this dictation. EMERGENCY DEPARTMENT COURSE and DIFFERENTIAL DIAGNOSIS/MDM: Vitals: Vitals: 12/28/23 2314 BP: 138/85 BP Location: Left arm Patient Position: Sitting Pulse: 80 Resp: 16 Temp: 36.4 C (97.6 F) TempSrc: Oral SpO2: 99% Weight: (!) 147 kg (324 lb) Height: 1.676 m (5' 6") 58 y.o. w h/o DMT2 and gastroparesis who presents to the emergency department 1 week of general malaise and intermittent nausea and vomiting. Upon presentation to ED patient is afebrile and he is hemodynamically normal. Given Zofran and IVF and reports that they are feeling much better. Patient given hyperkalemia protocol for potassium of 5.7. Unlikely to represent DKA given normal bicarb and lack of anion gap. Elevated beta hydroxybutyrate likely represents starvation ketosis. Past po challenge without difficulty. Prescription for Zofran provided at the time of discharge. Stable for discharge. Return criteria discussed. Follow-up with PCP in 3 to 5 days for reassessment. Patient verbalized understanding agrees with plan. ED Medications managed: Medications ondansetron (Zofran) injection 4 mg (has no administration in time range) sodium chloride 0.9 % bolus 1,000 mL (has no administration in time range) PROCEDURES: Unless otherwise noted below, none Procedures FINAL IMPRESSION 1. Nausea and vomiting, unspecified vomiting type DISPOSITION PATIENT REFERRED TO: No follow-up provider specified. DISCHARGE MEDICATIONS: New Prescriptions No medications on file (Comment: Please note this report has been produced using speech recognition software and may contain errors related to that system including errors in grammar, punctuation, and spelling, as well as words and phrases that may be inappropriate. If there are any questions or concerns please feel free to contact the dictating provider for clarification.) Ramsey Zavaleta DO (electronically signed) Emergency Medicine Provider Ramsey Zavaleta DO Resident 12/29/23 0413 Ramsey Zavaleta DO Resident 12/29/23 0416 documented in this encounter [facility] 12-29-2023 Emergency department Note Report from offload medic, pt assisted using using bedpan at this time. Awaiting squad DC back to Denise Sutherland, RN 12/29/23 0748 [facility] 12-29-2023 Emergency department Note DM approx cook pickled meat 830a AFTAB Hernandez 12/29/23 0634 [facility] 12-29-2023 Hospital Discharg e instructions Ramsey Zavaleta DO - 12/29/2023 3:34 AM EST Return to the ED with worsening vomiting, abdominal pain, or any other concerns. Follow-up with your PCP for reassessment. documented in this encounter [facility] 12-29-2023 Emergency department Note Pt passed PO challenge w/o difficulty. Todd Damon 12/29/23 0143 [facility] 12-28-2023 Miscellaneous Notes Emergency Department Encounter [facility] EMERGENCY DEPT Patient: Will Jacinto : 1965 Date of Evaluation: 12/28/2023 ED Supervising Physician: Edwin Bustos MD I independently examined and evaluated Maria Luisa Jacinto. This will serve as my Supervisory note and shared attestation. I did perform a substantive portion of the visit including all aspects of the Medical Decision Making. I wore appropriate PPE for the entirety of this encounter. In brief, Maria Luisa Jacinto is a 58 y.o. that presents to the emergency department with malaise, n/v for 1 week. Focused exam: Constitutional: No acute distress HEENT:Head: Atraumatic/normocephalic Eyes: Conjunctivae normal. CV: RRR RESP: CTAB, good respiratory effort, no increased wob GI: Abdomen soft, non-tender, non-distended, +BS, no guarding or rebound tenderness MSK: Normal bulk and tone, no gross deformity EXTR: Warm and well perfused, no edema SKIN: No rash/bruising/erythema PSYCH: Appropriate affect, cooperative behavior NEURO: Alert and oriented x 3, face symmetric, no slurred speech Brief ED course/MDM: Patient appears nontoxic. Mild hyponatremia. Mild hyperkalemia. Mild hyperglycemia without evidence of DKA. Beta-hydroxybutyrate is elevated however patient is not in DKA. Patient given 1 L of IV fluids and Zofran IV. He felt improved. Given the workup and exam I have no concern for an acute surgical abdominal emergency causing his symptoms. He is not in DKA. He is safe for outpatient follow-up. Diagnoses as of 12/29/23 0609 Nausea and vomiting, unspecified vomiting type I personally saw the patient and made/approved the management plan and take responsibility for the patient management. All diagnostic, treatment, and disposition decisions were made by myself in conjunction with the resident. For all further details of the patient's emergency department visit, please see their documentation. (Comment: Please note this report has been produced using speech recognition software and may contain errors related to that system including errors in grammar, punctuation, and spelling, as well as words and phrases that may be inappropriate. If there are any questions or concerns please feel free to contact the dictating provider for clarification.) Edwin Bustos MD [employer] Edwin Bustos MD 12/29/23 0614 documented in this encounter [facility] 12-28-2023 Note Formatting of this n ote is different from the original. Emergency Department Encounter [facility] EMERGENCY DEPT Patient: Will Jacinto : 1965 Date of Evaluation: 12/28/2023 ED Supervising Physician: Edwin Bustos MD I independently examined and evaluated Maria Luisa Jacinto. This will serve as my Supervisory note and shared attestation. I did perform a substantive portion of the visit including all aspects of the Medical Decision Making. I wore appropriate PPE for the entirety of this encounter. In brief, Maria Luisa Jacinto is a 58 y.o. that presents to the emergency department with malaise, n/v for 1 week. Focused exam: Constitutional: No acute distress HEENT:Head: Atraumatic/normocephalic Eyes: Conjunctivae normal. CV: RRR RESP: CTAB, good respiratory effort, no increased wob GI: Abdomen soft, non-tender, non-distended, +BS, no guarding or rebound tenderness MSK: Normal bulk and tone, no gross deformity EXTR: Warm and well perfused, no edema SKIN: No rash/bruising/erythema PSYCH: Appropriate affect, cooperative behavior NEURO: Alert and oriented x 3, face symmetric, no slurred speech Brief ED course/MDM: Patient appears nontoxic. Mild hyponatremia. Mild hyperkalemia. Mild hyperglycemia without evidence of DKA. Beta-hydroxybutyrate is elevated however patient is not in DKA. Patient given 1 L of IV fluids and Zofran IV. He felt improved. Given the workup and exam I have no concern for an acute surgical abdominal emergency causing his symptoms. He is not in DKA. He is safe for outpatient follow-up. Diagnoses as of 12/29/23 0609 Nausea and vomiting, unspecified vomiting type I personally saw the patient and made/approved the management plan and take responsibility for the patient management. All diagnostic, treatment, and disposition decisions were made by myself in conjunction with the resident. For all further details of the patient's emergency department visit, please see their documentation. (Comment: Please note this report has been produced using speech recognition software and may contain errors related to that system including errors in grammar, punctuation, and spelling, as well as words and phrases that may be inappropriate. If there are any questions or concerns please feel free to contact the dictating provider for clarification.) Edwin Bustos MD [facility] Edwin Bustos MD 12/29/23 0614 [employer] Phone: 12-28-2023 Note Formatting of this n ote is different from the original. Emergency Department Encounter [facility] EMERGENCY DEPT Patient: Will Jacinto : 1965 Date of Evaluation: 12/28/2023 ED Supervising Physician: Edwin Bustos MD I independently examined and evaluated Maria Luisa Jacinto. This will serve as my Supervisory note and shared attestation. I did perform a substantive portion of the visit including all aspects of the Medical Decision Making. I wore appropriate PPE for the entirety of this encounter. In brief, Maria Luisa Jacinto is a 58 y.o. that presents to the emergency department with malaise, n/v for 1 week. Focused exam: Constitutional: No acute distress HEENT:Head: Atraumatic/normocephalic Eyes: Conjunctivae normal. CV: RRR RESP: CTAB, good respiratory effort, no increased wob GI: Abdomen soft, non-tender, non-distended, +BS, no guarding or rebound tenderness MSK: Normal bulk and tone, no gross deformity EXTR: Warm and well perfused, no edema SKIN: No rash/bruising/erythema PSYCH: Appropriate affect, cooperative behavior NEURO: Alert and oriented x 3, face symmetric, no slurred speech Brief ED course/MDM: Patient appears nontoxic. Mild hyponatremia. Mild hyperkalemia. Mild hyperglycemia without evidence of DKA. Beta-hydroxybutyrate is elevated however patient is not in DKA. Patient given 1 L of IV fluids and Zofran IV. He felt improved. Given the workup and exam I have no concern for an acute surgical abdominal emergency causing his symptoms. He is not in DKA. He is safe for outpatient follow-up. Diagnoses as of 12/29/23 0609 Nausea and vomiting, unspecified vomiting type I personally saw the patient and made/approved the management plan and take responsibility for the patient management. All diagnostic, treatment, and disposition decisions were made by myself in conjunction with the resident. For all further details of the patient's emergency department visit, please see their documentation. (Comment: Please note this report has been produced using speech recognition software and may contain errors related to that system including errors in grammar, punctuation, and spelling, as well as words and phrases that may be inappropriate. If there are any questions or concerns please feel free to contact the dictating provider for clarification.) Edwin Bustos MD [facility] [facility] Edwin Bustos MD 12/29/23 0614 [employer] Phone: 12-28-2023 Physician Emergency department Note EMERGENCY DEPARTMENT ENCOUNTER Pt Name: Maria Luisa Jacinto Birthdate 1965 Date of evaluation: 12/28/2023 ED Provider: Ramsey Zavaleta DO CHIEF COMPLAINT Chief Complaint Patient presents with Nausea Vomiting Pt arrived by EMS from [facility] due to N/V for 1 month. Upon assessment pt is A&OX$ msps intact - CP + abd pain - sob . Pt is currently - vomiting. HISTORY OF PRESENT ILLNESS (Location/Symptom, Timing/Onset, Context/Setting, Quality, Duration, Modifying Factors, Severity) Note limiting factors. I wore appropriate PPE for the entirety of this encounter. HPI Maria Luisa Jacinto is a 58 y.o. who presents to the emergency department 1 week of general malaise and intermittent nausea and vomiting. Patient last vomited this afternoon total of 2 NBNB episodes today. He also describes having mild generalized abdominal pain and intermittent diarrhea during this timeframe. He is a resident at [facility] where his sugars are monitored regularly and run in the 300s. He is compliant with his diabetic medication regimen. Nursing Notes were reviewed. Limitations to history: None Outside historians: None REVIEW OF SYSTEMS Review of Systems Constitutional: Negative for fever. HENT: Negative for congestion. Respiratory: Negative for cough and shortness of breath. Cardiovascular: Negative for chest pain. Gastrointestinal: Positive for diarrhea, nausea and vomiting. All other systems reviewed and are negative. Pertinent positives and negatives as per HPI. 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) Acquired absence of other toe(s), unspecified side (HCC) Anxiety disorder Bipolar 1 disorder ([facility]) Blood circulation, collateral Cellulitis chronic L lower leg COVID 12/08/2021 Depression Diabetes mellitus ([facility]) Type II, on insulin Disease of blood and blood forming organ Endometrial carcinoma (HCC) 11/25/2020 Endometrial hyperplasia Foot ulcer (HCC) Hx of blood clots RLE prior to amputation Hyperlipidemia Hypertension Lymphedema 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, RLE Morbidly obese (HCC) Muscle weakness Osteomyelitis (HCC) Osteomyelitis (HCC) 2019 RLE Other lack of coordination Other specified soft tissue disorders Other symbolic dysfunctions Schizophrenia ([facility]) Sleep apnea no CPAP Venous insufficiency SURGICAL HISTORY Past Surgical History: Procedure Laterality Date ABCESS DRAINAGE Right 09/09/2018 FOOT; ACH COLONOSCOPY 09/19/[address] Hyde DILATION AND CURETTAGE OF UTERUS 05/18/2019 HYSTEROSCOPY 12/23/2021 LEG AMPUTATION THROUGH KNEE Right 06/16/2019 UPPER GASTROINTESTINAL ENDOSCOPY N/A 06/29/2023 Dr Sergio Sibley at [facility]; no specimens WISDOM TOOTH EXTRACTION CURRENT MEDICATIONS Previous Medications ACETAMINOPHEN (TYLENOL) 325 MG TABLET Take 650 mg by mouth every 4 hours as needed for mild pain (1-3). ARIPIPRAZOLE (ABILIFY) 10 MG TABLET Every 24 hours. ASPIRIN 81 MG EC TABLET Take 1 tablet by mouth daily. ATORVASTATIN (LIPITOR) 10 MG TABLET Take 1 tablet by mouth daily. BISACODYL (DULCOLAX) 5 MG EC TABLET Take 5 mg by mouth 2 times daily as needed for constipation. Do not crush, chew, or split. CINNAMON 500 MG CAPSULE Take 2,000 mg by mouth daily. CLOTRIMAZOLE (LOTRIMIN) 1 % CREAM Apply topically 2 times daily. DILTIAZEM CD (CARDIZEM CD) 180 MG 24 HR CAPSULE Take 180 mg by mouth daily. FLUOXETINE (PROZAC) 40 MG CAPSULE Take 40 mg by mouth daily. GABAPENTIN (NEURONTIN) 100 MG CAPSULE Take 100 mg by mouth in the morning and 100 mg before bedtime. INSULIN REGULAR (HUMULIN R U-500) 500 UNIT/ML CONCENTRATED INJECTION Inject 250 Units under the skin every morning (before breakfast). Do not start before October 17, 2023. INSULIN REGULAR (HUMULIN R U-500) 500 UNIT/ML CONCENTRATED INJECTION Inject 150 Units under the skin daily with supper. INSULIN REGULAR (HUMULIN R U-500) 500 UNIT/ML CONCENTRATED INJECTION Inject 150 Units under the skin daily (before lunch). INSULIN REGULAR (HUMULIN R) 500 UNIT/ML CONCENTRATED INJECTION 250 units before breakfast/200 units before lunch and dinner LACTOBACILLUS ACID-PECTIN (ACIDOPHILUS/CITRUS PECTIN) TABLET Take 1 tablet by mouth in the morning and 1 tablet in the evening. LISINOPRIL 40 MG TABLET Take 0.5 tablets (20 mg) by mouth daily. LORATADINE 10 MG CAPSULE Take by mouth. MAGNESIUM HYDROXIDE (MILK OF MAGNESIA CONCENTRATE) 2400 MG/10ML SUSPENSION SUSPENSION Every 24 hours. MEGESTROL (MEGACE) 20 MG TABLET Take 1 tablet by mouth in the morning and 1 tablet before bedtime. MELATONIN 10 MG TABLET Take 10 mg by mouth Nightly as needed (insomnia). METOPROLOL TARTRATE (LOPRESSOR) 25 MG TABLET Take 1 tablet by mouth in the morning and 1 tablet before bedtime. MICONAZOLE (MICOTIN) 2 % POWDER Apply topically 2 times daily. PANTOPRAZOLE (PROTONIX) 40 MG EC TABLET Take 40 mg by mouth. POLYETHYLENE GLYCOL, PEG, 3350 (GLYCOLAX) 17 GM/SCOOP POWDER Take 17 g by mouth daily. ALLERGIES Patient has no known allergies. FAMILY HISTORY Family History Problem Relation Name Age of Onset No Known Problems Mother No Known Problems Father SOCIAL HISTORY Social History Socioeconomic History Marital status: Single Tobacco Use Smoking status: Never Smokeless tobacco: Never Vaping Use Vaping Use: Never used Substance and Sexual Activity Alcohol use: No Drug use: Never Social Determinants of Health Intimate Partner Violence: Not At Risk (08/18/2023) Humiliation, Afraid, Rape, and Kick questionnaire Fear of Current or Ex-Partner: No Emotionally Abused: No Physically Abused: No Sexually Abused: No SCREENINGS PHYSICAL EXAM ED Triage Vitals [12/28/23 2314] Temp Heart Rate Resp BP 36.4 C (97.6 F) 80 16 138/85 SpO2 Temp Source Heart Rate Source Patient Position 99 % Oral Monitor Sitting BP Location FiO2 (%) Left arm -- Physical Exam Vitals reviewed. Constitutional: General: He is not in acute distress. Appearance: He is obese. He is not ill-appearing, toxic-appearing or diaphoretic. HENT: Head: Normocephalic and atraumatic. Right Ear: External ear normal. Left Ear: External ear normal. Nose: Nose normal. Mouth/Throat: Mouth: Mucous membranes are dry. Eyes: General: No scleral icterus. Right eye: No discharge. Left eye: No discharge. Extraocular Movements: Extraocular movements intact. Cardiovascular: Rate and Rhythm: Normal rate. Pulses: Normal pulses. Pulmonary: Effort: Pulmonary effort is normal. No respiratory distress. Breath sounds: No wheezing or rhonchi. Abdominal: General: Abdomen is flat. Palpations: Abdomen is soft. Tenderness: There is abdominal tenderness (mild, diffuse). There is no guarding or rebound. Musculoskeletal: General: No tenderness, deformity or signs of injury. Cervical back: Normal range of motion. Comments: Remote R AKA Skin: General: Skin is warm and dry. Neurological: General: No focal deficit present. Mental Status: He is alert and oriented to person, place, and time. Psychiatric: Mood and Affect: Mood normal. DIAGNOSTIC RESULTS RADIOLOGY (Per Emergency Physician): Interpretation per the Radiologist below, if available at the time of this note: No orders to display LABS: Labs Reviewed BASIC METABOLIC PANEL CBC WITH AUTO DIFFERENTIAL COMPLETE URINALYSIS WITH REFLEX TO CULTURE Narrative: The following orders were created for panel order Complete Urinalysis with reflex to Culture. Procedure Abnormality Status --------- ------ Complete Urinalysis[[id number]] Please view results for these tests on the individual orders. BETA HYDROXYBUTYRATE COMPLETE URINALYSIS POCT GLUCOSE METER All other labs were within normal range or not returned as of this dictation. EMERGENCY DEPARTMENT COURSE and DIFFERENTIAL DIAGNOSIS/MDM: Vitals: Vitals: 12/28/23 2314 BP: 138/85 BP Location: Left arm Patient Position: Sitting Pulse: 80 Resp: 16 Temp: 36.4 C (97.6 F) TempSrc: Oral SpO2: 99% Weight: (!) 147 kg (324 lb) Height: 1.676 m (5' 6") 58 y.o. w h/o DMT2 and gastroparesis who presents to the emergency department 1 week of general malaise and intermittent nausea and vomiting. Upon presentation to ED patient is afebrile and he is hemodynamically normal. Given Zofran and IVF and reports that they are feeling much better. Patient given hyperkalemia protocol for potassium of 5.7. Unlikely to represent DKA given normal bicarb and lack of anion gap. Elevated beta hydroxybutyrate likely represents starvation ketosis. Past po challenge without difficulty. Prescription for Zofran provided at the time of discharge. Stable for discharge. Return criteria discussed. Follow-up with PCP in 3 to 5 days for reassessment. Patient verbalized understanding agrees with plan. ED Medications managed: Medications ondansetron (Zofran) injection 4 mg (has no administration in time range) sodium chloride 0.9 % bolus 1,000 mL (has no administration in time range) PROCEDURES: Unless otherwise noted below, none Procedures FINAL IMPRESSION 1. Nausea and vomiting, unspecified vomiting type DISPOSITION PATIENT REFERRED TO: No follow-up provider specified. DISCHARGE MEDICATIONS: New Prescriptions No medications on file (Comment: Please note this report has been produced using speech recognition software and may contain errors related to that system including errors in grammar, punctuation, and spelling, as well as words and phrases that may be inappropriate. If there are any questions or concerns please feel free to contact the dictating provider for clarification.) Ramsey Zavaleta DO (electronically signed) Emergency Medicine Provider Ramsey Zavaleta DO Resident 12/29/23 0413 Ramsey Zavaleta DO Resident 12/29/23 0416 [facility] 12-28-2023 Telephone encounter Note Faxed recommendation to [facility]. Thank you! [facility] 12-28-2023 Miscellaneous Notes Faxed recommendation to [facility]. Thank you! Please keep doses the same thank you Images from the original note were not included. Patient's BGL documented in this encounter [facility] 12-28-2023 Telephone encounter Note Please keep doses the same thank you [facility] 12-28-2023 Telephone encounter Note Images from the original note were not included. Patient's BGL [facility] 12-23-2023 Procedure note Pt refused to finish last 2 hours of GES, only obtained intial 2 hrs of test. [facility] 12-23-2023 Procedure note Pt refused to finish last 2 hours of GES, only obtained intial 2 hrs of test. documented in this encounter [facility] 12-14-2023 Telephone encounter Note Called [facility] and was on an extended hold. I faxed over recommendation and noted for someone to give us a call to ensure they received the recommendation. Thank you! [facility] 12-14-2023 Miscellaneous Notes Called [facility] and was on an extended hold. I faxed over recommendation and noted for someone to give us a call to ensure they received the recommendation. Thank you! Please tell staff that they can give 1/2 the usual dose of u500 insulin if the patient is not eating thank you Images from the original note were not included. Patient's BGL is below for your review. Thank you! S: Patient spoke with [facility] nurse regarding high glucometer's and insulin dose questions B: Onset of symptoms/concern about a week A: Patient seen in ER on 12/09/2023 for same symptoms. Since patient is back to [facility], patient continues to have some emesis and inconsistent eating patterns of mostly clear liquids such as coke, jello, and candy. Denies fever, dizziness, shortness of breath, weakness, or frequent urination. Patient has orders for humulin 250 units am and 200 units lunch and supper. Glucometer's have been from 200-400 ac and hs. This morning insulin was held, 257 glucometer, patient ate no breakfast. At lunch patient received 200 units of humulin, glucometer 400, patient ate coke and candy. RN requesting if insulin dose should be changed. R: Disposition to call PCP and callback by nurse within an hour. Advised by office to send TE to Emilia Busby, to forward to Dr Lee. Please, advise Ninfa at [facility] of any medication changes and care advise. Phone number is [phone], ask for BEE Ocasio. Ninfa states she did fax over patient glucometer's for a week. Reason for Disposition Blood glucose > 300 mg/dL (16.7 mmol/L) AND two or more times in a row Protocols used: Diabetes - High Blood [id number]-YGROH-GO documented in this encounter [facility] 12-13-2023 Telephone encounter Note Please tell staff that they can give 1/2 the usual dose of u500 insulin if the patient is not eating thank you [facility] 12-13-2023 Telephone encounter Note Images from the original note were not included. Patient's BGL is below for your review. Thank you! [facility] 12-13-2023 Telephone encounter Note S: Patient spoke with [facility] nurse regarding high glucometer's and insulin dose questions B: Onset of symptoms/concern about a week A: Patient seen in ER on 12/09/2023 for same symptoms. Since patient is back to [facility], patient continues to have some emesis and inconsistent eating patterns of mostly clear liquids such as coke, jello, and candy. Denies fever, dizziness, shortness of breath, weakness, or frequent urination. Patient has orders for humulin 250 units am and 200 units lunch and supper. Glucometer's have been from 200-400 ac and hs. This morning insulin was held, 257 glucometer, patient ate no breakfast. At lunch patient received 200 units of humulin, glucometer 400, patient ate coke and candy. RN requesting if insulin dose should be changed. R: Disposition to call PCP and callback by nurse within an hour. Advised by office to send TE to mEilia Busby, to forward to Dr Lee. Please, advise Ninfa at [facility] of any medication changes and care advise. Phone number is [phone], ask for BEE Ocasio. Ninfa states she did fax over patient glucometer's for a week. Reason for Disposition Blood glucose > 300 mg/dL (16.7 mmol/L) AND two or more times in a row Protocols used: Diabetes - High Blood [id number]-LD [facility] 12-09-2023 Emergency department Note This nurse received report from Margaret Coleman RN 12/09/23 0728 [facility] 12-09-2023 Emergency department Note This nurse received report from Margaret Coleman RN 12/09/23 0728 ED RT Marques called for VBG. Marques states he will be down Dalila Mendes RN 12/09/23 0559 Pt presents to ED c/o nausea and vomiting and headache. EMS states several residents have COVID at facility. Pt states she vomiting 3x today. documented in this encounter [facility] 12-09-2023 Hospital Discharg e instructions Caridad Evans MD - 12/09/2023 7:12 AM EST Thank you for trusting us with your care today. You may use tylenol or ibuprofen as needed for pain. Please also make sure to stay hydrated at all times. You may use zofran for nausea as needed. Please make an appointment with your primary care doctor for reevalaution in 1-4 days. Please return to the emergency department for any new concerning or worsening symptoms. The following attachments cannot be sent through Care Everywhere.Dehydration Discharge Instructions, Adult (Swiss)Nausea and Vomiting, Adult ED (Swiss)documented in this encounter [facility] 12-09-2023 Note Sinus rhythm Abnormal R-wave progression, late transition Left ventricular hypertrophy No significant change compared to 08/17/2023 Electronically Signed On 12-09-2023 06:18:33 EST by Caridad FIGUEROA 12-09-2023 Note Sinus rhythm Abnormal R-wave progression, late transition Left ventricular hypertrophy No significant change compared to 08/17/2023 Electronically Signed On 12-09-2023 06:18:33 EST by [facility] Emergency department Note ED RT Marques called for VBG. Marques states he will be down Dalila Mendes RN 12/09/23 0559 [facility] 12-09-2023 Emergency department Triage note Pt presents to ED c/o nausea and vomiting and headache. EMS states several residents have COVID at facility. Pt states she vomiting 3x today. [facility] 12-06-2023 Telephone encounter Note Images from the original note were not included. Patient's BGL [facility] 12-06-2023 Miscellaneous Notes Images from the original note were not included. Patient's BGL documented in this encounter [facility] 11-25-2023 Note Addended by: GERONIMO LEE on: 11/25/2023 12:06 PM Modules accepted: Orders [facility] 11-25-2023 Note Addended by: GERONIMO LEE on: 11/25/2023 12:06 PM Modules accepted: Orders [facility] 11-25-2023 Miscellaneous Notes Addended by: GERONIMO LEE on: 11/25/2023 12:06 PM Modules accepted: Orders Addended by: RADHA BUSBY on: 11/25/2023 11:59 AM Modules accepted: Orders Called nursing facility and spoke with nurse Ninfa. I relayed the message and she verbalized understanding. Updated RX is pending. Thank you! Please increase doses to 200 units with each meal thank you Called [facility] and spoke with nurse ochoa. She verified that patient is taking humulin R U500(250 units with breakfast/175 units with lunch and dinner Please check on insulin doses; will need to increase thank you Images from the original note were not included. Patient's BGL documented in this encounter [facility] 11-25-2023 Note Addended by: RADHA BUSBY on: 11/25/2023 11:59 AM Modules accepted: Orders [facility] 11-25-2023 Note Addended by: RADHA BUSBY on: 11/25/2023 11:59 AM Modules accepted: Orders [facility] 11-25-2023 Telephone encounter Note Called nursing facility and spoke with nurse Ninfa. I relayed the message and she verbalized understanding. Updated RX is pending. Thank you! [facility] 11-24-2023 Telephone encounter Note Please increase doses to 200 units with each meal thank you [employer] Work Phone: 11-24-2023 Miscellaneous Notes Please increase doses to 200 units with each meal thank you Called [facility] and spoke with nurse ochoa. She verified that patient is taking humulin R U500(250 units with breakfast/175 units with lunch and dinner Please check on insulin doses; will need to increase thank you Images from the original note were not included. Patient's BGL documented in this encounter [facility] 11-24-2023 Telephone encounter Note Called [facility] and spoke with nurse ochoa. She verified that patient is taking humulin R U500(250 units with breakfast/175 units with lunch and dinner [facility] 11-23-2023 Telephone encounter Note Please check on insulin doses; will need to increase thank you [employer] 11-23-2023 Telephone encounter Note Images from the original note were not included. Patient's BGL [employer] 11-17-2023 Note HNO ID: [id number] Author: ELDA REAVES PA-C Service: ? Author Type: Physician [employer] Operator Type: Progress Notes Filed: 11/17/2023 10:00 Note Text: CHIEF COMPLAINT: Patient presents with: Nausea AND Vomiting HPI: Resident at [facility], SNF and rehab. Will Jacinto is a 58 year old adult with PMHx positive for anxiety, bipolar, HTN, HLD, DM II who presents for Nausea AND Vomiting. On Protonix 40 mg daily. Recent [facility] admission 2/2 complications from DM, hypoglycemia, altered mental state. Has had several prior ER visits prior to admission for CP, pyelo. Informed of potential for gastroparesis on last hospital admission, was tried on Reglan which he reports may have helped sx, not currently taking medication. He is having 3-4 episodes of emesis per week. Takes Pepcid PRN with some relief. Zofran helping minimally. Admits to worsened postprandial abd pains. Bms are every other day, formed consistency, no blood/black coloring. Takes Miralax PRN with relief. Denies weight loss, fevers, melena. US 10/2023 Impression Gallstones. No definite acute biliary process. Consider follow-up or further evaluation. Limited due to body habitus and bowel gas. CT abd 10/2023 Impression 1. No evidence of acute infectious or inflammatory process in the abdomen or pelvis. 2. The liver demonstrates generalized diminished attenuation as compared to the spleen, compatible with hepatic steatosis. 3. Hyperdensity within the gallbladder lumen, suggestive of sludge and/or cholelithiasis; consider right upper quadrant ultrasound. 4. Patchy opacities in the right lung base. EGD 06/2023 Impression: - Normal esophagus. - Z-line regular, 41 cm from the incisors. - Normal stomach, cardia and gastric fundus. - Normal duodenal bulb and second portion of the duodenum. - No specimens collected. Record Review: [facility] / Outside records reviewed. PAST MEDICAL HISTORY Diagnosis Date Anxiety state Bipolar disorder (HCC) Endometrial hyperplasia Essential hypertension Ileus (HCC) Lack of coordination Lymphedema Mixed hyperlipidemia Reduced mobility Type 2 diabetes mellitus (HCC) No past surgical history on file. Allergies: ALLERGIES No Known Allergies Medications: atorvastatin (LIPITOR) 10 mg tablet Take 10 mg by mouth once daily. CINNAMON clotrimazole (LOTRIMIN) 1 % cream Apply to affected area two times a day. dilTIAZem CR (TIAZAC, TAZTIA XT) 180 mg 24 hr capsule Take 180 mg by mouth once daily. gabapentin (NEURONTIN) 100 mg capsule Take 100 mg by mouth three times a day. polyethylene glycol 3350 (GLYCOLAX ORAL) Take by mouth. metoprolol tartrate, short acting, (LOPRESSOR) 25 mg tablet Take 25 mg by mouth two times a day. megestrol (MEGACE) 20 mg tablet Take 20 mg by mouth once daily. Melatonin 5 mg cap Take by mouth. ondansetron (ZOFRAN) 4 mg tablet Take 4 mg by mouth every 8 hours as needed. pantoprazole DR (PROTONIX) 40 mg tablet Take 40 mg by mouth once daily. calcium carbonate (TUMS 500 ORAL) Take by mouth. SACCHAROMYCES BOULARDII ORAL Take by mouth. ARIPiprazole (ABILIFY) 10 mg tablet Take 10 mg by mouth once daily. acetaminophen 325 mg cap Take 2 capsules by mouth every 6 hours. aspirin, enteric coated (ASPIRIN, ENTERIC COATED) 81 mg EC tablet Take 81 mg by mouth once daily. Bisacodyl (DULCOLAX) 5 mg tab Take 1 tablet by mouth as needed. FLUoxetine (PROZAC) 40 mg capsule Take 40 mg by mouth once daily. insulin regular hum U-500 conc (HUMULIN R U-500, CONC, KWIKPEN) 500 unit/mL (3 mL) inpn Inject 32 Units subcutaneously daily with breakfast. insulin regular hum U-500 conc (HUMULIN R U-500, CONC, KWIKPEN) 500 unit/mL (3 mL) inpn Inject 38 Units subcutaneously daily with breakfast. lisinopril (ZESTRIL) 20 mg tablet Take 20 mg by mouth once daily. magnesium hydroxide (MILK OF MAGNESIA ORAL) Take 30 mL by mouth every 24 hours. bisacodyl (DULCOLAX, BISACODYL,) 10 mg supp 10 mg by RECTAL route every 24 hours. FLUoxetine (PROZAC) 10 mg capsule Take 10 mg by mouth once daily. heparin sodium,porcine (HEPARIN LOCK FLUSH INTRAVEN.) Inject 5 mL intravenously every 8 hours. insulin lispro (HUMALOG LEONARDO KWIKPEN U-100) 100 unit/mL inph Inject 100 Units subcutaneously three times daily before meals. HYDROcodone-acetaminophen (NORCO) 5-325 mg per tablet Take 1 tablet by mouth every 4 hours. furosemide (LASIX) 80 mg tablet Take 80 mg by mouth once daily. insulin detemir U-100 (LEVEMIR U-100 INSULIN) 100 unit/mL injection Inject 86 Units subcutaneously daily at bedtime. metFORMIN (GLUCOPHAGE) 1,000 mg tablet Take 1,000 mg by mouth twice daily with meals. simvastatin (ZOCOR) 20 mg tablet Take 20 mg by mouth daily at bedtime. No family history on file. Employer And Job Title: None on file Years Of Education Completed: Not specified Marital Status: Single Social History Tobacco Use Smoking status: Never Smokeless tobacco: Never Substance Us (more content not included)... [facility] 11-09-2023 Telephone encounter Note BGL under media for review. [facility] 11-09-2023 Miscellaneous Notes BGL under media for review. Nabil is faxing over patient's bgl right now. Name of caller: Nabil Contact phone number: [phone] Relationship to Patient: [place] in [place] Provider: Dr Lee Practice: Endocrinology Chief Complaint/Reason for Call: Nabil is requesting to be advised on insulin parameters for Maria Luisa. Nabil states Maria Luisa has not been eating, vomiting, nausea. States blood sugar was 528 this morning, 252 before lunch, over all in the "2-300s." Nabil states Maria Luisa' insulin was increased a couple weeks ago and is requesting to see if the parameters should be changed. Please call Nabil to advise for Maria Luisa. Best time of day caller can be reached: Any Patient advised that office/PCP has 24-48 business hours to return their call: Yes documented in this encounter [facility] 11-09-2023 Telephone encounter Note Nabil is faxing over patient's bgl right now. [facility] 11-09-2023 Telephone encounter Note Name of caller: Nabil Contact phone number: [phone] Relationship to Patient: [place] in [place] Provider: Dr Lee Practice: Endocrinology Chief Complaint/Reason for Call: Nabil is requesting to be advised on insulin parameters for Maria Luisa. Nabil states Maria Luisa has not been eating, vomiting, nausea. States blood sugar was 528 this morning, 252 before lunch, over all in the "2-300s." Nabil states Maria Luisa' insulin was increased a couple weeks ago and is requesting to see if the parameters should be changed. Please call Nabil to advise for Maria Luisa. Best time of day caller can be reached: Any Patient advised that office/PCP has 24-48 business hours to return their call: Yes [facility] [employer] 10-27-2023 History of Presen t illness Narrative . ENDOCRINOLOGY [address] [facility] [address] Dept: [phone] Dept Visit type: Established patient Patient was identified and seen today via Telehealth by agreement and consent. I used the following Telehealth technology: Audio capability only. Total length of call 35 minutes. The patient was offered and advised video for a more comprehensive evaluation, but the patient declined or was unable to use video. Patient location: [place] Patient Location: [facility] This patient encounter is appropriate and reasonable under the circumstances: too sick to leave home . The patient has been advised of the potential risks and limitations of this mode of treatment (including but not limited to the absence of in-person examination) and has agreed to be treated in a remote fashion in spite of them. Any and all of the patient's/patient's family's questions on this issue have been answered and I have made no promises or guarantees to the patient. The patient has also been advised to contact this office for worsening conditions or problems, and seek emergency medical treatment and/or call 911 if the patient deems either necessary. The patient stated that they are currently in the state [facility]. If the patient is a minor, permission has been obtained by the parent or guardian for the patient to receive medical care at this visit. Chief complaint diabetes Offered virtual via my chart declines prefers audio only Reason for Visit: diabetes Assessment and Plan 1. Type 2 diabetes mellitus with hyperglycemia, with long-term current use of insulin (HCC) 2. Mixed hyperlipidemia 3. Primary hypertension No follow-ups on file. Discussed with patient -increase u500 at lunch and dinner to 175- gave order to nurse -continue to send in blood glucose levels every other week Discussed with patient detection, monitoring, management, and prevention of hypoglycemia Discussed with patient eye care and importance of follow with diabetes Discussed with patient lipid goals and guidelines in diabetes care Discussed with patient hemoglobin a1c goal determination 7.5 Will continue current lipid lowering medications and antihypertensives Subjective HPI Follow-up appointment for diabetes Diet: 3 meals a day sometimes has a snack in evening Exercise: adls - in wheelchair s/p right aka Hgm: checking 3 times daily 200 range last couple days decreased versus last week Hypoglycemia: see below Medcomp: U500 250/150/150/0 Eye care: caught up for the year, has not needed injections Onset dm: 1991 a1c goal: 7 Hlp taking atorvastatin tolerates well stable Htn taking diltiazem daily tolerates well stable No hx pancreatitis No hx medullary cancer thyroid or fmhx Was in hospital from 10/07/23 until 10/17/23- had hypoglycemia- had not been eating well Review of Systems Constitutional: Negative for activity change and fatigue. HENT: Negative for hearing loss, trouble swallowing and voice change. Respiratory: Negative for cough, shortness of breath and wheezing. Cardiovascular: Negative for chest pain and palpitations. Gastrointestinal: Negative for nausea and vomiting. Endocrine: Negative for cold intolerance and heat intolerance. Genitourinary: Negative for dysuria and hematuria. Musculoskeletal: Positive for gait problem (wheelchair). Skin: Negative for rash. Neurological: Negative for tremors and headaches. Hematological: Negative for adenopathy. Does not bruise/bleed easily. Psychiatric/Behavioral: Negative for sleep disturbance. No Known Allergies Outpatient Medications Prior to Visit Medication Sig Dispense Refill acetaminophen (Tylenol) 325 MG tablet Take 650 mg by mouth every 4 hours as needed for mild pain (1-3). ARIPiprazole (Abilify) 10 MG tablet Every 24 hours. aspirin 81 MG EC tablet Take 1 tablet by mouth daily. atorvastatin (Lipitor) 10 MG tablet Take 1 tablet by mouth daily. bisacodyl (Dulcolax) 5 MG EC tablet Take 5 mg by mouth 2 times daily as needed for constipation. Do not crush, chew, or split. cinnamon 500 MG capsule Take 2,000 mg by mouth daily. clotrimazole (Lotrimin) 1 % cream Apply topically 2 times daily. dilTIAZem CD (Cardizem CD) 180 MG 24 hr capsule Take 180 mg by mouth daily. FLUoxetine (PROzac) 40 MG capsule Take 40 mg by mouth daily. gabapentin (Neurontin) 100 MG capsule Take 100 mg by mouth in the morning and 100 mg before bedtime. insulin regular (HumuLIN R U-500) 500 UNIT/ML CONCENTRATED injection Inject 250 Units under the skin every morning (before breakfast). Do not start before October 17, 2023. insulin regular (HumuLIN R U-500) 500 UNIT/ML CONCENTRATED injection Inject 150 Units under the skin daily with supper. insulin regular (HumuLIN R U-500) 500 UNIT/ML CONCENTRATED injection Inject 150 Units under the skin daily (before lunch). Lactobacillus Acid-Pectin (Acidophilus/Rosemead Pectin) tablet Take 1 tablet by mouth in the morning and 1 tablet in the evening. lisinopril 40 MG tablet Take 0.5 tablets (20 mg) by mouth daily. Loratadine 10 MG capsule Take by mouth. magnesium hydroxide (Milk of Magnesia Concentrate) 2400 MG/10ML suspension suspension Every 24 hours. megestrol (Megace) 20 MG tablet Take 1 tablet by mouth in the morning and 1 tablet before bedtime. melatonin 10 MG tablet Take 10 mg by mouth Nightly as needed (insomnia). metoprolol tartrate (Lopressor) 25 MG tablet Take 1 tablet by mouth in the morning and 1 tablet before bedtime. miconazole (Micotin) 2 % powder Apply topically 2 times daily. ondansetron ODT (Zofran-ODT) 4 MG disintegrating tablet Take 1 tablet (4 mg) by mouth every 8 hours as needed for nausea or vomiting. pantoprazole (ProtoNix) 40 MG EC tablet Take 40 mg by mouth. polyethylene glycol, PEG, 3350 (Glycolax) 17 GM/SCOOP powder Take 17 g by mouth daily. No facility-administered medications prior to visit. 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) Acquired absence of other toe(s), unspecified side ([facility]) Anxiety disorder Bipolar 1 disorder ([facility]) Blood circulation, collateral Cellulitis chronic L lower leg COVID 12/08/2021 Depression Diabetes mellitus ([facility]) Type II, on insulin Disease of blood and blood forming organ Endometrial carcinoma ([facility]) 11/25/2020 Endometrial hyperplasia Foot ulcer ([facility]) Hx of blood clots RLE prior to amputation Hyperlipidemia Hypertension Lymphedema 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, RLE Morbidly obese ([facility]) Muscle weakness Osteomyelitis ([facility]) Osteomyelitis ([facility]) 2019 RLE Other lack of coordination Other specified soft tissue disorders Other symbolic dysfunctions Schizophrenia ([facility]) Sleep apnea no CPAP Venous insufficiency Social History Tobacco Use Smoking status: Never Smokeless tobacco: Never Substance Use Topics Alcohol use: No Past Surgical History: Procedure Laterality Date ABCESS DRAINAGE Right 09/09/2018 FOOT; ACH COLONOSCOPY 09/19/[address] Hyde DILATION AND CURETTAGE OF UTERUS 05/18/2019 HYSTEROSCOPY 12/23/2021 LEG AMPUTATION THROUGH KNEE Right 06/16/2019 UPPER GASTROINTESTINAL ENDOSCOPY N/A 06/29/2023 Dr Sergio Sibley at [facility]; no specimens WISDOM TOOTH EXTRACTION Family History Problem Relation Name Age of Onset No Known Problems Mother No Known Problems Father Objective There were no vitals taken for this visit. Physical Exam Today's visit was a telehealth visit occurring by phone; therefore physical examination could not be completed. A physical examination will be completed at the time of the patient's next in person office visit. Data Reviewed and Summarized Labs: THYROID STIMULATING HORMONE Date Value Ref Range Status 11/26/2020 2.356 0.465 - 4.680 u[IU]/mL Final Auto WBC Date Value Ref Range Status 10/13/2023 9.1 3.6 - 10.7 10*3/uL Final Hemoglobin Date Value Ref Range Status 10/13/2023 10.5 (L) 11.7 - 18.0 g/dL Final 10/12/2023 12.4 11.7 - 18.0 g/dL Final 10/11/2023 10.9 (L) 11.7 - 18.0 g/dL Final 10/08/2023 10.6 (L) 11.7 - 18.0 g/dL Final 10/07/2023 13.2 11.7 - 18.0 g/dL Final 08/19/2023 12.2 11.7 - 18.0 g/dL Final 08/18/2023 12.2 11.7 - 18.0 g/dL Final 08/17/2023 12.5 11.7 - 18.0 g/dL Final 08/08/2023 12.0 11.7 - 18.0 g/dL Final 06/29/2023 10.8 (L) 11.7 - 18.0 g/dL Final 06/28/2023 11.6 (L) 11.7 - 18.0 g/dL Final 03/08/2023 12.6 Male: 13.0-18.0 g/dL; Female: 11.7-16.0 g/dL g/dL Final 12/23/2021 11.8 11.7 - 16.0 g/dL Final 12/08/2020 12.3 11.7 - 16.0 g/dL Final 11/25/2020 10.0 (L) 11.7 - 16.0 g/dL Final 11/24/2020 11.0 (L) 11.7 - 16.0 g/dL Final 11/23/2020 11.2 (L) 11.7 - 16.0 g/dL Final 11/22/2020 12.0 11.7 - 16.0 g/dL Final 09/26/2020 12.6 11.7 - 16.0 g/dL Final 09/24/2020 19.3 (H) 11.7 - 16.0 g/dL Final 09/23/2020 11.8 11.7 - 16.0 g/dL Final 09/22/2020 11.8 11.7 - 16.0 g/dL Final 09/19/2020 10.6 (L) 11.7 - 16.0 g/dL Final 09/17/2020 11.4 (L) 11.7 - 16.0 g/dL Final 01/02/2020 13.5 11.7 - 16.0 g/dL Final Hematocrit Date Value Ref Range Status 10/13/2023 31.7 Male: 40.0-52.0 %; Female: 35.0-47.0 % % Final Platelets Date Value Ref Range Status 10/13/2023 324 140 - 440 10*3/uL Final MCV Date Value Ref Range Status 10/13/2023 84.9 80.0 - 98.0 fL Final SODIUM Date Value Ref Range Status 10/14/2023 134 (L) 135 - 145 mmol/L Final POTASSIUM Date Value Ref Range Status 10/14/2023 3.9 3.5 - 5.1 mmol/L Final CHLORIDE Date Value Ref Range Status 10/14/2023 102 98 - 107 mmol/L Final Carbon Dioxide (CO2) Date Value Ref Range Status 02/09/2023 23 20 - 32 mmol/L Final CARBON DIOXIDE Date Value Ref Range Status 10/14/2023 25 22 - 30 mmol/L Final Urea Nitrogen (BUN) Date Value Ref Range Status 02/09/2023 26 (H) 7 - 25 mg/dL Final UREA NITROGEN Date Value Ref Range Status 10/14/2023 35 Male: 9-20 mg/dL; Female: 7-17 mg/dL mg/dL Final Creatinine Date Value Ref Range Status 02/09/2023 0.86 0.50 - 1.03 mg/dL Final CREATININE Date Value Ref Range Status 10/14/2023 0.98 Male: 0.66-1.25 mg/dL; Female: 0.52-1.04 mg/dL mg/dL Final 10/13/2023 1.28 Male: 0.66-1.25 mg/dL; Female: 0.52-1.04 mg/dL mg/dL Final 10/12/2023 0.98 Male: 0.66-1.25 mg/dL; Female: 0.52-1.04 mg/dL mg/dL Final 10/11/2023 1.30 Male: 0.66-1.25 mg/dL; Female: 0.52-1.04 mg/dL mg/dL Final 10/09/2023 0.76 Male: 0.66-1.25 mg/dL; Female: 0.52-1.04 mg/dL mg/dL Final 10/08/2023 1.09 Male: 0.66-1.25 mg/dL; Female: 0.52-1.04 mg/dL mg/dL Final 10/07/2023 0.74 Male: 0.66-1.25 mg/dL; Female: 0.52-1.04 mg/dL mg/dL Final 08/19/2023 1.00 Male: 0.66-1.25 mg/dL; Female: 0.52-1.04 mg/dL mg/dL Final 08/18/2023 0.76 Male: 0.66-1.25 mg/dL; Female: 0.52-1.04 mg/dL mg/dL Final 08/17/2023 0.72 Male: 0.66-1.25 mg/dL; Female: 0.52-1.04 mg/dL mg/dL Final 08/08/2023 0.49 Male: 0.66-1.25 mg/dL; Female: 0.52-1.04 mg/dL mg/dL Final 06/29/2023 0.79 Male: 0.66-1.25 mg/dL; Female: 0.52-1.04 mg/dL mg/dL Final 06/28/2023 0.64 Male: 0.66-1.25 mg/dL; Female: 0.52-1.04 mg/dL mg/dL Final 03/08/2023 0.56 Male: 0.66-1.25 mg/dL; Female: 0.52-1.04 mg/dL mg/dL Final 12/23/2021 0.73 0.52 - 1.25 mg/dL Final 12/08/2020 0.64 0.52 - 1.25 mg/dL Final 11/28/2020 0.66 0.52 - 1.25 mg/dL Final 11/27/2020 0.57 0.52 - 1.25 mg/dL Final 11/26/2020 0.63 0.52 - 1.25 mg/dL Final 11/25/2020 0.76 0.52 - 1.25 mg/dL Final 11/24/2020 0.74 0.52 - 1.25 mg/dL Final 11/24/2020 0.78 0.52 - 1.25 mg/dL Final 11/23/2020 0.86 0.52 - 1.25 mg/dL Final 11/22/2020 0.75 0.52 - 1.25 mg/dL Final 09/26/2020 1.13 0.52 - 1.25 mg/dL Final 09/24/2020 1.97 (H) 0.52 - 1.25 mg/dL Final 09/23/2020 1.05 0.52 - 1.25 mg/dL Final 09/22/2020 0.88 0.52 - 1.25 mg/dL Final 09/20/2020 0.81 0.52 - 1.25 mg/dL Final 09/19/2020 0.88 0.52 - 1.25 mg/dL Final 09/18/2020 0.99 0.52 - 1.25 mg/dL Final 09/18/2020 0.97 0.52 - 1.25 mg/dL Final 09/17/2020 1.09 0.52 - 1.25 mg/dL Final 01/02/2020 0.95 0.52 - 1.25 mg/dL Final GLUCOSE Date Value Ref Range Status 10/15/2023 473 (HH) 70 - 100 mg/dL Final 02/09/2023 433 (H) 65 - 99 mg/dL Final Comment: Verified by repeat analysis. Fasting reference interval For someone without known diabetes, a glucose value >125 mg/dL indicates that they may have diabetes and this should be confirmed with a follow-up test. CALCIUM Date Value Ref Range Status 10/14/2023 8.8 8.4 - 10.4 mg/dL Final 02/09/2023 9.2 8.6 - 10.4 mg/dL Final MAGNESIUM Date Value Ref Range Status 10/13/2023 1.7 1.6 - 2.3 mg/dL Final AST - [facility] Date Value Ref Range Status 02/09/2023 16 10 - 35 U/L Final AST (SGOT) Date Value Ref Range Status 10/11/2023 20 15 - 46 U/L Final ALT - [facility] Date Value Ref Range Status 02/09/2023 29 6 - 29 U/L Final ALT Date Value Ref Range Status 10/11/2023 28 Male: 0-49 U/L; Female: 0-34 U/L U/L Final PROTEIN, TOTAL - [facility] Date Value Ref Range Status 02/09/2023 6.4 6.1 - 8.1 g/dL Final TOTAL PROTEIN Date Value Ref Range Status 10/11/2023 6.5 6.3 - 8.2 g/dL Final BILIRUBIN, TOTAL - [facility] Date Value Ref Range Status 02/09/2023 0.3 0.2 - 1.2 mg/dL Final BILIRUBIN, TOTAL Date Value Ref Range Status 10/11/2023 0.7 0.2 - 1.3 mg/dL Final ALKALINE PHOSPHATASE Date Value Ref Range Status 10/11/2023 143 (H) 38 - 126 U/L Final 02/09/2023 178 (H) 37 - 153 U/L Final LIPASE Date Value Ref Range Status 10/07/2023 34 23 - 300 U/L Final TRIGLYCERIDE Date Value Ref Range Status 08/29/2020 190 mg/dL Final HDL CHOLESTEROL Date Value Ref Range Status 08/29/2020 31 (A) 35 - 70 mg/dL Final HEMOGLOBIN A1C - [facility] Date Value Ref Range Status 02/09/2023 10.1 (H) <5.7 % of total Hgb Final Comment: For someone without known diabetes, a hemoglobin A1c value of 6.5% or greater indicates that they may have diabetes and this should be confirmed with a follow-up test. For someone with known diabetes, a value <7% indicates that their diabetes is well controlled and a value greater than or equal to 7% indicates suboptimal control. A1c targets should be individualized based on duration of diabetes, age, comorbid conditions, and other considerations. Currently, no consensus exists regarding use of hemoglobin A1c for diagnosis of diabetes for children. HEMOGLOBIN A1C Date Value Ref Range Status 10/09/2023 7.7 (H) <5.7 % Final Comment: Normal less than 5.7% Prediabetes 5.7% to 6.4% Diabetes 6.5% or higher --HgbA1C levels may not be accurate in patients who have renal disease, received recent blood transfusions, are anemic, or who have dyshemoglobinemia. Imaging/Testing: On this date, 10/27/2023 I have spent 35 minutes reviewing previous notes, test results and face to face with the patient discussing the diagnosis and importance of compliance with the treatment plan as well as documenting on the day of the visit. Geronimo Lee MD documented in this encounter [facility] 10-16-2023 History of Presen t illness Narrative [facility] called and notified this nurse that they won't be able to pick patient up until 0200 d/t bariatric patient and requires 2 crews. Spoke with staff and [facility] [place] and per staff will still be able to accept patient at that time. [facility] aware ok to transport patient at 0200 to [facility]. Patient updated on delay in transportation. Department of Internal Medicine Division of Endocrinology, Diabetes, & Metabolism Endocrinology Note Patient Name: Will Jacinto : 1965 AGE: 57 y.o. Room/Bed: [facility]/[address] Admission Date: 10/07/2023 Visit Date: 10/16/2023 Reason for Endocrine Consult: U-500 dosing, hypoglycemia Provider/Team Requesting Consult: YUNIER PCP: Jared Gu[facility] Out[facility] Sales Coordinator: Dr. Lee ASSESSMENT: Type 2 diabetes, uncontrolled, with long-term insulin use Recent hypoglycemia with U-500 Acinetobacter bacteriemia NOY, resolving Diabetic polyneuropathy Diabetic gastroparesis Morbid obesity Body mass index is 51 kg/m . H/o R AKA PLAN: Blood sugars are not at goal Pt is severely insulin-resistant Switched to U-500 today -- 250-150-150 units TID If blood sugars are stable and not worsening by dinnertime, patient can be safely discharged to SNF D/w team ICU goal <180 GMF goal <150 POCT BG ACHS Hypoglycemia per protocol Carb controlled diet ANTICIPATED ENDOCRINE HOME GOING RECOMMENDATIONS: Optimized for Discharge from Endocrine standpoint: yes if stable Home Going Endocrine Rx Recommendations-- U-500 with current doses HOLD Trulicity -- pt has a h/o gastroparesis and has ongoing nausea Outpt Follow Up-- 10/27/2023 SUBJECTIVE/HPI: CHIEF COMPLAINT: Chief Complaint Patient presents with Hypoglycemia Patient is a 57-year-old transgender male with history of type 2 diabetes, hypertension, hyperlipidemia, diabetic polyneuropathy, s/p right AKA and [facility] for hypogly[facility]/unresponsiveness due to poor PO intake. Type of DM: 2 Onset of DM: 1991 DM Medication Regimen: U-500 insulin - 285 units before breakfast/260 units before lunch/285 units before dinner , Trulicity 4.5 mg weekly DM control (last A1c/glucose data): 7.7% on current admission Resides at the [facility] Interim history: Patient was seen at bedside Good PO intake Has intermittent nausea; no vomiting or AP Drinks juice occasionally ID following - on IV Abx; has PICC No SOB or CP Plan for DC to [facility] Date/Time Value Ref Range Status 10/16/2023 11:40 AM 304 (H) 70 - 100 mg/dL Final 10/16/2023 08:02 AM 312 (H) 70 - 100 mg/dL Final Comment: Caregiver Notified; 10/15/2023 08:33 PM 262 (H) 70 - 100 mg/dL Final 10/15/2023 03:53 PM 289 (H) 70 - 100 mg/dL Final 10/15/2023 11:45 AM >450 (H) 70 - 100 mg/dL Final Comment: Caregiver Notified; 10/15/2023 09:29 AM >450 (H) 70 - 100 mg/dL Final Comment: Caregiver Notified; Review of Systems ROS negative except for those mentioned in HPI. OBJECTIVE: Vitals: 10/15/23 2155 10/16/23 0201 10/16/23 0549 10/16/23 0944 BP: (!) 162/117 (!) 159/70 (!) 161/67 116/77 BP Location: Right arm Patient Position: Lying Pulse: 74 72 67 72 Resp: 16 16 16 16 Temp: 36.3 C (97.4 F) 36.3 C (97.3 F) 36.3 C (97.4 F) 36.9 C (98.4 F) TempSrc: Temporal Temporal Temporal Oral SpO2: 96% 94% 96% 97% Weight: Height: Physical Exam Vitals and nursing note reviewed. Constitutional: Appearance: He is obese. Eyes: Conjunctiva/sclera: Conjunctivae normal. Cardiovascular: Rate and Rhythm: Normal rate. Pulmonary: Effort: Pulmonary effort is normal. No respiratory distress. Abdominal: General: There is distension. Musculoskeletal: General: Swelling and deformity present. Left lower leg: Edema present. Comments: Right AKA Skin: General: Skin is dry. Neurological: General: No focal deficit present. Mental Status: He is alert and oriented to person, place, and time. Psychiatric: Attention and Perception: Attention normal. Mood and Affect: Mood normal. Behavior: Behavior is cooperative. 24 hour intake/output: Intake/Output Summary (Last 24 hours) at 10/16/2023 1630 Last data filed at 10/16/2023 0944 Gross per 24 hour Intake 1330 ml Output 600 ml Net 730 ml Diet: Adult diet Regular; Isolation Tray (Disposables); 5 carb choices (75 gm/meal) Medications (as per EMR): HomeMeds: Current Outpatient Medications Medication Instructions acetaminophen (TYLENOL) 650 mg, Oral, Every 4 hours PRN ARIPiprazole (Abilify) 10 MG tablet Every 24 hours aspirin 81 MG EC tablet 1 tablet, Oral, Daily atorvastatin (Lipitor) 10 MG tablet 1 tablet, Oral, Daily bisacodyl (DULCOLAX) 5 mg, Oral, 2 times daily PRN, Do not crush, chew, or split. cinnamon 2,000 mg, Oral, Daily clotrimazole (Lotrimin) 1 % cream Topical, 2 times daily dilTIAZem CD (CARDIZEM CD) 180 mg, Oral, Daily dulaglutide (TRULICITY) 4.5 mg, SubCUTAneous, Weekly, Every FLUoxetine (PROZAC) 40 mg, Oral, Daily gabapentin (NEURONTIN) 100 mg, Oral, 2 times daily insulin regular (HumuLIN R U-500 KWIKPEN) 500 UNIT/ML CONCENTRATED injection SubCUTAneous, 3 times daily, 285 units before breakfast/260 units before lunch/285 units before dinner [START ON 10/17/2023] insulin regular (HUMULIN R U-500) 250 Units, SubCUTAneous, Daily before breakfast insulin regular (HUMULIN R U-500) 150 Units, SubCUTAneous, Daily With Dinner [START ON 10/17/2023] insulin regular (HUMULIN R U-500) 150 Units, SubCUTAneous, Daily before lunch Lactobacillus Acid-Pectin (Acidophilus/Rosemead Pectin) tablet 1 tablet, Oral, 2 times daily lisinopril 20 mg, Oral, Daily Loratadine 10 MG capsule Oral magnesium hydroxide (Milk of Magnesia Concentrate) 2400 MG/10ML suspension suspension Every 24 hours megestrol (Megace) 20 MG tablet 1 tablet, Oral, 2 times daily melatonin 10 mg, Oral, Nightly PRN metoclopramide (REGLAN) 10 mg, Oral, 4 times daily metoprolol tartrate (Lopressor) 25 MG tablet 1 tablet, Oral, 2 times daily miconazole (Micotin) 2 % powder Topical, 2 times daily ondansetron (ZOFRAN) 4 mg, Oral, Every 6 hours PRN ondansetron ODT (ZOFRAN-ODT) 4 mg, Oral, Every 8 hours PRN pantoprazole (PROTONIX) 40 mg, Oral polyethylene glycol (PEG) 3350 (GLYCOLAX) 17 g, Oral, Daily potassium chloride CR (K-Tab) 20 MEQ ER tablet Every 24 hours Scheduled Meds:ARIPiprazole, 10 mg, Oral, q24h aspirin, 81 mg, Oral, Daily atorvastatin, 10 mg, Oral, Nightly clotrimazole, , Topical, BID dilTIAZem CD, 180 mg, Oral, Daily enoxaparin, 30 mg, SubCUTAneous, 2 times per day ertapenem, 1,000 mg, IntraVENous, q24h FLUoxetine, 40 mg, Oral, Daily gabapentin, 100 mg, Oral, BID heparin flush, 250 Units, IntraCATHeter, q12h insulin regular, 150 Units, SubCUTAneous, Daily before lunch insulin regular, 150 Units, SubCUTAneous, Dinner [START ON 10/17/2023] insulin regular, 250 Units, SubCUTAneous, qAM AC [Held by provider] lisinopril, 40 mg, Oral, Daily megestrol, 20 mg, Oral, BID melatonin, 10 mg, Oral, Nightly metoprolol tartrate, 25 mg, Oral, BID pantoprazole, 40 mg, Oral, qAM AC polyethylene glycol (PEG) 3350, 17 g, Oral, Daily sodium chloride 0.9%, 10 mL, IntraCATHeter, q12h Continuous Infusions: PRN Meds:PRN medications: acetaminophen, aluminum & magnesium hydroxide-simethicone, dextrose, dextrose, glucagon (rDNA), glucose, heparin flush, labetalol, ondansetron ODT OR ondansetron, polyethylene glycol (PEG) 3350, prochlorperazine, sodium chloride 0.9% Diagnostic Workup: I reviewed pertinent Laboratory results, Radiographic results, and Other Clinical Notes at the time of today's encounter. Labs: No components found for: LABA1C No components found for: "EAG" Lab Results Component Value Date NA 134 (L) 10/14/2023 K 3.9 10/14/2023 CL 102 10/14/2023 CO2 25 10/14/2023 BUN 35 10/14/2023 CREATININE 0.98 10/14/2023 GLUCOSE 473 (HH) 10/15/2023 CALCIUM 8.8 10/14/2023 Lab Results Component Value Date CHLPL 125 08/29/2020 Lab Results Component Value Date TRIG 190 08/29/2020 Lab Results Component Value Date HDL 31 (A) 08/29/2020 Lab Results Component Value Date LDLCALC 56 08/29/2020 Lab Results Component Value Date VLDL 38 08/29/2020 No results found for: CHOLHDLRATIO No results found for: [id number] Lab Results Component Value Date TSH 2.356 11/26/2020 Radiology reportsas per the Radiologist Radiology: CT abdomen pelvis w contrast Result Date: 10/08/2023 Patient Name: WILL JACINTO : 1965 Exam Date/Time: 10/08/2023 09:36 Procedure: CT ABDOMEN PELVIS W CONTRAST Ordering Provider: ROBERTSON MEREDITH Reason For Exam: Nausea/vomiting CT ABDOMEN AND PELVIS WITH CONTRAST CLINICAL INDICATION: Nausea and vomiting. TECHNIQUE: Multi-axial 3mm sections through the abdomen and pelvis following 75 mL of Isoview contrast media. No oral contrast was administered. Coronal and sagittal reconstructions were reviewed. Dose reduction was employed with automated exposure control. COMPARISON: 08/17/2023. FINDINGS: Lower thorax: Patchy opacities in the right lung base. Otherwise unremarkable. Stomach: Unremarkable. Liver: Normal size and contours. The liver demonstrates generalized diminished attenuation as compared to the spleen, compatible with hepatic steatosis. No focal lesion. Biliary tree: Hyperdensity within the gallbladder lumen, suggestive of sludge and/or cholelithiasis. No pericholecystic inflammatory change by CT. No biliary dilatation. Spleen: Normal. Adrenals: Normal. Pancreas: Normal. Kidneys: Symmetric contrast enhancement without evidence of hydronephrosis. No focal renal lesion is identified. Free air or fluid: None. Mesenteric/retroperitoneal: No adenopathy or inflammation. Aorta: Normal caliber of aorta and bilateral common iliac arteries. Bowel: No inflammatory changes in the right lower quadrant. No inflammatory change or bowel dilatation is noted. Urinary bladder: Unremarkable. Abdominal wall/soft tissues: No ventral hernia is evident. Pelvic organs/viscera: The uterus is present. Inguinal: No lymphadenopathy. Osseous structures: Advanced multilevel thoracolumbar spine degenerative changes including DISH. Advanced bilateral hip osteoarthritis. 1. No evidence of acute infectious or inflammatory process in the abdomen or pelvis. 2. The liver demonstrates generalized diminished attenuation as compared to the spleen, compatible with hepatic steatosis. 3. Hyperdensity within the gallbladder lumen, suggestive of sludge and/or cholelithiasis; consider right upper quadrant ultrasound. 4. Patchy opacities in the right lung base. Report Dictated on Electronically Signed By: Bao Hill MD Electronically Signed Date/Time: 10/08/2023 10:23 AM EST XR chest 1 view Result Date: 10/07/2023 Patient Name: WILL JACINTO : 1965 [facility]#: [id number] Exam Date/Time: 10/07/2023 07:31 Procedure: XR CHEST 1 VIEW Ordering Provider: MUSTAFA KATHRYN Reason For Exam: altered, hypoglyc CHEST (Frontal View) History: Hypoglycemia, change in mental status Comparison: 08/08/2023 Findings: Frontal chest view shows diminished lung volume with interstitial prominence and small linear basilar atelectasis without acute infiltrate or overt congestion. The heart is normal in size. There is no mediastinal widening, sizable pleural effusion, or other significant change from last exam. There is spondylosis. Chronic findings. No appreciable acute pulmonary process. Report Dictated on Electronically Signed By: Angel Randhawa MD Electronically Signed Date/Time: 10/07/2023 7:[address] head wo IV contrast Result Date: 10/07/2023 [facility] 1965 [id number] Exam Date/Time: 10/07/2023 07:29 Procedure: CT HEAD WO IV CONTRAST Ordering Provider: MUSTAFA KATHRYN Reason For Exam: AMS UNENHANCED HEAD CT History: Change in mental status Comparison: None available Technique: Multislice axial CT sections obtained from the base to the vertex of the brain without IV contrast enhancement. Multiplanar sagittal and coronal reconstructed images also obtained. Dose reduction employed with automated exposure control. Findings: There is mild parenchymal loss with prominent cortical sulci and fissures, not unusual for age. The ventricles are normal in size for age. There is no intracranial hemorrhage, midline shift, or other mass effect in the brain. The exam is limited without contrast enhancement. There are mild carotid siphon calcifications. The paranasal sinuses and bilateral mastoid air cells are clear. There is spondylosis with prominent calcific/ossific densities at the cervical cranial and C1-C2 junction that are not adequately visualized for proper evaluation. Mild parenchymal volume loss. No evidence of acute intracranial process. 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 other toe(s), unspecified side (HCC) Anxiety disorder Bipolar 1 disorder (HCC) Blood circulation, collateral Cellulitis chronic L lower leg COVID 12/08/2021 Depression Diabetes mellitus (HCC) Type II, on insulin Disease of blood and blood forming organ Endometrial carcinoma (HCC) 11/25/2020 Endometrial hyperplasia Foot ulcer (HCC) Hx of blood clots RLE prior to amputation Hyperlipidemia Hypertension Lymphedema 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; no specimens WISDOM TOOTH EXTRACTION Allergy(ies): No Known Allergies Family History: Family History Problem Relation Name Age of Onset No Known Problems Mother No Known Problems Father Social History: Social History Tobacco Use Smoking status: Never Smokeless tobacco: Never Vaping Use Vaping Use: Never used Substance Use Topics Alcohol use: No Drug use: Never Portions of the information within this encounter were entered using an electronic dictation system. Best attempts were made to edit/proofread the information prior to note completion. Despite the review of information, some errors may remain. If there are questions related to the information contained within the note please contact the signing physician directly. I spent 35 minutes with the pt which involved coordination of care, medical evaluation, review of records, and/or counseling of the pt regarding his/her condition/disease state/prognosis on the date of this note. Images from the original note were not included. Hospitalist Progress Note 10/16/2023 [id number]: Please page [facility] night Hospitalist for any issues. Admit Date: 10/07/2023 PCP: Jared Guzman Room#: [id number] A Brief hospital course: Patient admitted 10/07/2023 for hypoglycemia 2/2 insulin use with poor PO intake, hypothermia, ?sepsis. 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 Initially presented from [facility] with hypoglycemia and unresponsiveness, POC glucose 36. Had been having poor PO intake 4-5 days d/t N/V and insulin had not been adjusted. On presentation he was hypothermic (91 F); mentation had not initially improved s/p resolution of hypoglycemia, but once warming was underway mentation was returning to baseline. Found to have blood cultures (+)Acinetobacter lwoffi (kelley-sens), and given (+)SIRS on presentation he likely did have sepsis POA. Symptoms improved on antibx, and endocrinology was heavily involved with adjusting patient's insulin regimen. Subjective: Interval History: No overnight issues. Understands that if glucose better controlled today he will be discharged. No concerns. Adult diet Regular; Isolation Tray (Disposables); 5 carb choices (75 gm/meal) 24HR INTAKE/OUTPUT: Intake/Output Summary (Last 24 hours) at 10/16/2023 0718 Last data filed at 10/16/2023 0600 Gross per 24 hour Intake 1090 ml Output 1450 ml Net -360 ml 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 other toe(s), unspecified side (HCC) Anxiety disorder Bipolar 1 disorder (HCC) Blood circulation, collateral Cellulitis chronic L lower leg COVID 12/08/2021 Depression Diabetes mellitus (HCC) Type II, on insulin Disease of blood and blood forming organ Endometrial carcinoma (HCC) 11/25/2020 Endometrial hyperplasia Foot ulcer (HCC) Hx of blood clots RLE prior to amputation Hyperlipidemia Hypertension Lymphedema 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 NAD. Cooperative with exam. Respiratory: CTAB. Normal effort. Cardiovascular: RRR. No M/R/G. Abdominal: NBS, soft, NT/ND. Neurologic: Alert. Answering questions & following directions appropriately. Labs/Studies: The following labs and/or studies were reviewed by me as part of today's encounter. HEME: No results for input(s): "WBC", "RBC", "HGB", "HCT", "MCV", "RDW", "PLT" in the last 72 hours. CHEM: Recent Labs 10/14/23 0315 10/15/23 0936 10/15/23 1148 NA 134* -- -- K 3.9 -- -- CL 102 -- -- CO2 25 -- -- BUN 35 -- -- CREATININE 0.98 -- -- EGFR 67.9 -- -- GLUCOSE 250* 528* 473* CALCIUM 8.8 -- -- ANIONGAP 7 -- -- No results for input(s): "MG", "PHOS", "ALBUMIN", "CRP", "SEDRATE", "CKTOTAL" in the last 72 hours. (MG, CRP, SEDRATE, and CKTOTAL are separate not part of a panel; PHOS may be separate or part of a RENAL panel) LIVER: No results for input(s): "AST", "ALT", "BILITOT", "BILIDIR", "ALKPHOS", "ALBUMIN", "PROT", "LIPASE", "GGT" in the last 72 hours. (on any date where BILIDIR is present then there is a full hepatic panel, not a CMP; lipase & GGT are separate labs not part of a panel) COAG: No results for input(s): "PROTIME", "INR", "PTT" in the last 72 hours. CARDIAC: No results for input(s): "TROPONINI" in the last 72 hours. NT PRO BNP Date Value Ref Range Status 06/28/2023 150 <20 - 300 pg/mL Final Recent Labs 10/15/23 0929 10/15/23 1145 10/15/23 1553 10/15/23 2033 10/16/23 0802 10/16/23 1140 POCGLU >450* >450* 289* 262* 312* 304* No results for input(s): "LACTATE" in the last 72 hours. No results found for: "DDIMER", "PROCAL", "COVID19", "HGBA1C", "TSH", "[id number]", "FOLATE", "VITD25", "CHOL", "TRIG", "HDL", LDLCALC Urine Culture: Results for orders placed or performed during the hospital encounter of 10/07/23 Urine culture Specimen: Urine, Clean Catch Result Value Ref Range Urine Culture No growth (<1,000 CFU/mL) Blood Culture: Results for orders placed or performed during the hospital encounter of 10/07/23 Blood culture Site #2 - Assess for effectiveness of treatment Specimen: Blood, Venous Result Value Ref Range Blood Culture No growth at 5 days Blood culture Site #1 - Assess for effectiveness of treatment Specimen: Blood, Venous Result Value Ref Range Blood Culture No growth at 5 days Currently Ordered Medications: Current Facility-Administered Medications: acetaminophen (Tylenol) tablet 650 mg, 650 mg, Oral, q4h PRN, JEREMY Liao CNP, 650 mg at 10/13/23 0117 aluminum & magnesium hydroxide-simethicone (Mylanta) 200-200-20 MG/5ML oral suspension 20 mL, 20 mL, Oral, q6h PRN, Marcio Armando MD ARIPiprazole (Abilify) tablet 10 mg, 10 mg, Oral, q24h, JEREMY Liao CNP, 10 mg at 10/15/23 1623 aspirin EC tablet 81 mg, 81 mg, Oral, Daily, JEREMY Liao CNP, 81 mg at 10/15/23 0944 atorvastatin (Lipitor) tablet 10 mg, 10 mg, Oral, Nightly, JEREMY Liao CNP, 10 mg at 10/15/232046 clotrimazole (Lotrimin) 1 % cream, , Topical, BID, JEREMY Liao CNP, Given at 10/15/232050 dextrose 5 % infusion, 100 mL/hr, IntraVENous, PRN, JEREMY Liao CNP, Stopped at 10/10/23 0552 dextrose 50 % solution 12.5 g, 12.5 g, IntraVENous, PRN, Rachael Robertson APRN - [employer] dilTIAZem CD (Cardizem CD) 24 hr capsule 180 mg, 180 mg, Oral, Daily, Rachael Robertson APRN - KRANTHI, 180 mg at 10/15/23943 enoxaparin (Lovenox) syringe 30 mg, 30 mg, SubCUTAneous, 2 times per day, JEREMY Liao CNP, 30 mg at 10/15/232044 ertapenem (INVanz) 1,000 mg in sodium chloride 0.9 % 50 mL IVPB Mini-Bag Plus, 1,000 mg, IntraVENous, q24h, Mukul Coreas DO, Stopped at 10/15/23 1542 FLUoxetine (PROzac) capsule 40 mg, 40 mg, Oral, Daily, Rachael Robertson APRN - KRANTHI, 40 mg at 10/15/23943 gabapentin (Neurontin) capsule 100 mg, 100 mg, Oral, BID, JEREMY Liao CNP, 100 mg at 10/15/232044 glucagon (human recombinant) injection 1 mg, 1 mg, IntraMUSCular, PRN, Rachael Robertson APRN - KRANTHI glucose oral gel 15 g, 15 g, Oral, PRN, Rachael Robertson APRN - KRANTHI, 15 g at 10/10/23 0216 heparin flush injection 250 Units, 250 Units, IntraCATHeter, q12h, Funmi Askew MD, 250 Units at 10/16/23 0405 heparin flush injection 250 Units, 250 Units, IntraCATHeter, PRN, Funmi Askew MD Insulin Lispro (Humalog) injection 0-18 Units, 0-18 Units, SubCUTAneous, TID WC, Amrita Garcia MD, 18 Units at 10/15/23 1209 Insulin Lispro (Humalog) injection 90 Units, 90 Units, SubCUTAneous, TID WC, Анна Villela MD, 90 Units at 10/15/23 162 insulin NPH (Isophane) (HumuLIN N,NovoLIN N) injection 120 Units, 120 Units, SubCUTAneous, Nightly, Анна Villela MD, 120 Units at 10/15/232044 insulin NPH (Isophane) (HumuLIN N,NovoLIN N) injection 160 Units, 160 Units, SubCUTAneous, q AM, Анна Villela MD, 160 Units at 10/15/23 0932 labetalol (Normodyne,Trandate) injection 20 mg, 20 mg, IntraVENous, q6h PRN, Ricardo Spring MD, 20 mg at 10/13/23 1308 [Held by provider] lisinopril tablet 40 mg, 40 mg, Oral, Daily, Mayda Olmstead MD, 40 mg at 10/11/23 0942 megestrol (Megace) tablet 20 mg, 20 mg, Oral, BID, JEREMY Liao CNP, 20 mg at 10/15/232045 melatonin tablet 10 mg, 10 mg, Oral, Nightly, Rachael Robertson APRN - KRANTHI, 10 mg at 10/15/232044 metoprolol tartrate (Lopressor) tablet 25 mg, 25 mg, Oral, BID, Rachael Robertson APRN - KRANTHI, 25 mg at 10/15/232047 ondansetron ODT (Zofran-ODT) disintegrating tablet 4 mg, 4 mg, Oral, q8h PRN OR ondansetron (Zofran) injection 4 mg, 4 mg, IntraVENous, q6h PRN, Marcio Armando MD pantoprazole (ProtoNix) EC tablet 40 mg, 40 mg, Oral, qAM AC, Rachael Robertson APRN - [employer], 40 mg at 10/16/23 0619 polyethylene glycol (PEG) 3350 (Miralax) packet 17 g, 17 g, Oral, Daily PRN, JEREMY Liao CNP polyethylene glycol (PEG) 3350 (Miralax) packet 17 g, 17 g, Oral, Daily, Rachael Robertson APRN - [employer], 17 g at 10/15/23 0943 prochlorperazine (Compazine) injection 5 mg, 5 mg, IntraVENous, q6h PRN, Marcio Armando MD, 5 mg at 10/13/23 2140 sodium chloride 0.9% (NS) flush 10 mL, 10 mL, IntraCATHeter, q12h, Funmi Askew MD, 10 mL at 10/16/23 0405 sodium chloride 0.9% (NS) flush 10 mL, 10 mL, IntraCATHeter, PRN, Funmi Askew MD Medical Decision Making: Acute, acute on chronic, unstable/uncontrolled chronic problems: Acinetobacter lwoffi bacteremia Sepsis POA, resolving, unclear source IDDM2 ("brittle") with hyperglycemia & hypoglycemia, polyneuropathy, gastroparesis Intermittent N/V with known gastroparesis, improved LLE erythema, previously eval'd and deemed unlikely to be cellulitis Stable chronic problems affecting care, new non-acute diagnoses: Class III morbid obesity JOHN no CPAP (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) prior R-AKA prior DVT Schizoaffective bipolar type Cholelithiasis As a result of the above findings & factors, the following mgmt was pursued: - ID recommendations: - erta through 10/21 (complete 14-days total therapy) - PICC placed 10/12 - endocrinology following, appreciate recs - finalization of discharge U-500 regimen - outpatient f/u 10/27/23 - holding ACEi d/t NOY during the admission, will resume at lower dose at discharge - PT/OT/CM/SW - delirium precautions: increase activity - DVT prophylaxis: enoxaparin and encourage ambulation Data: (CAT3) Mgmt of the patient was discussed with Dr. Villela, who stated, in summary: multiple secure chats throughout the day to coordinate care and determine whether or not patient's insulin regimen would be appropriate for discharge (Note: labs/studies can only be counted once--either when ordered or when reviewed--not both.) Advance Directive: Full Code Anticipated Discharge - Date - today or tomorrow - [facility] - Pending the following - monitor glucose levels through dinner, bed hold no auth req'd and OPAT already sent to facility Marcio Armando MD Division of Hospitalist Medicine [place] [place]: Moderate (3x CAT1 -OR- 1x CAT2 -OR- 1x CAT3) Complexity: Acute illness or injury posing a threat to life or body function (HIGH). Risk: Prescription drug/IVF/colloid was initiated, discontinued, adjusted; or reviewed with decision to maintain current orders (MOD). Estimated MDM: Medium (49673/[id number]) or higher Note: the above MDM determinations are made by me for my own use to estimate my end-of-day billing codes. However, documentation is reviewed by professional coders; following their review of documentation, and in accordance with current AMA CPT, CMS, and ACDIS guidelines, the actual billing code(s) may differ from my estimate. Department of Internal Medicine Division of Endocrinology, Diabetes, & Metabolism Endocrinology Note Patient Name: Will Jacinto : 1965 AGE: 57 y.o. [facility]: [facility] Admission Date: 10/07/2023 Visit Date: 10/15/2023 Reason for Endocrine Consult: U-500 dosing, hypoglycemia Provider/Team Requesting Consult: IMS PCP: Jared Guzman Outpt District Sales Coordinator: Dr. Lee ASSESSMENT: Type 2 diabetes, uncontrolled, with long-term insulin use Recent hypoglycemia with U-500 Acinetobacter bacteriemia NOY, resolving Diabetic polyneuropathy Diabetic gastroparesis Morbid obesity Body mass index is 51 kg/m . H/o R AKA PLAN: Blood sugars are uncontrolled Hyperglycemia today related to missed insulin dose Will resume U-500 tomorrow -- pt is severely insulin-resistant and U-100 insulin has not been effective despite aggressive titration Adjusted NPH/Humalog insulin for today-- Increased NPH to 160-120 units bid Increased Humalog to 90 units with meals -- will give 30 units X 1 now (2.5 hrs after BF for BG 498) -- discussed with CODE AND TEST CLERK/RN Continue Humalog high dose scale with meals Will start U-500 insulin tomorrow -- 200-150-150 units TID and DC NPH/Reg ICU goal <180 GMF goal <150 POCT BG ACHS Hypoglycemia per protocol Carb controlled diet ANTICIPATED ENDOCRINE HOME GOING RECOMMENDATIONS: Optimized for Discharge from Endocrine standpoint: NO Home Going Endocrine Rx Recommendations-- U-500 with current doses Trulicity-to be held -- pt has a h/o gastroparesis and has ongoing nausea Outpt Follow Up-- 10/27/2023 SUBJECTIVE/HPI: CHIEF COMPLAINT: Chief Complaint Patient presents with Hypoglycemia Patient is a 57-year-old transgender male with history of type 2 diabetes, hypertension, hyperlipidemia, diabetic polyneuropathy, s/p right AKA and [facility]/unresponsiveness due to poor PO intake. Type of DM: 2 Onset of DM: 1991 Home DM Medication Regimen: U-500 insulin - 285 units before breakfast/260 units before lunch/285 units before dinner , Trulicity 4.5 mg weekly DM control (last A1c/glucose data): 7.7% on current admission Resides at the [place] Interim history: Patient was seen at bedside PO improved Nausea better No vomiting or AP Ate BF at 7AM today -- nurse was not aware; no BG check prior to the meal and has not received insulin doses Has been drinking watered down cranberry juice Does not like diet gingerale ID following - on IV Abx; has PICC No SOB or CP Plan for DC to [facility] Date/Time Value Ref Range Status 10/15/2023 09:29 AM >450 (H) 70 - 100 mg/dL Final Comment: Caregiver Notified; 10/14/2023 07:56 PM 305 (H) 70 - 100 mg/dL Final 10/14/2023 04:20 PM 338 (H) 70 - 100 mg/dL Final Comment: Caregiver Notified; 10/14/2023 12:47 PM 360 (H) 70 - 100 mg/dL Final Comment: Caregiver Notified; 10/14/2023 07:52 AM 268 (H) 70 - 100 mg/dL Final 10/14/2023 01:02 AM 235 (H) 70 - 100 mg/dL Final Review of Systems ROS negative except for those mentioned in HPI. OBJECTIVE: Vitals: 10/14/23 1806 10/14/23 2200 10/15/23 0131 10/15/23 0543 BP: (!) 147/51 (!) 140/63 (!) 164/67 (!) 174/71 BP Location: Right arm Right arm Patient Position: Lying Pulse: 79 79 77 73 Resp: 20 16 16 16 Temp: 36.3 C (97.4 F) 36.7 C (98 F) 36.2 C (97.2 F) 36.2 C (97.1 F) TempSrc: Temporal Temporal Temporal Temporal SpO2: 98% 94% 96% 94% Weight: Height: Physical Exam Vitals and nursing note reviewed. Constitutional: Appearance: He is obese. Eyes: Conjunctiva/sclera: Conjunctivae normal. Cardiovascular: Rate and Rhythm: Normal rate. Pulmonary: Effort: Pulmonary effort is normal. No respiratory distress. Abdominal: General: There is distension. Musculoskeletal: General: Swelling and deformity present. Left lower leg: Edema present. Comments: Right AKA Skin: General: Skin is dry. Neurological: General: No focal deficit present. Mental Status: He is alert and oriented to person, place, and time. Psychiatric: Attention and Perception: Attention normal. Mood and Affect: Mood normal. Behavior: Behavior is cooperative. 24 hour intake/output: Intake/Output Summary (Last 24 hours) at 10/15/2023 0935 Last data filed at 10/15/2023 0500 Gross per 24 hour Intake 240 ml Output 1450 ml Net -1210 ml Diet: Adult diet Regular; Isolation Tray (Disposables); 5 carb choices (75 gm/meal) Medications (as per EMR): HomeMeds: Current Outpatient Medications Medication Instructions acetaminophen (TYLENOL) 650 mg, Oral, Every 4 hours PRN ARIPiprazole (Abilify) 10 MG tablet Every 24 hours aspirin 81 MG EC tablet 1 tablet, Oral, Daily atorvastatin (Lipitor) 10 MG tablet 1 tablet, Oral, Daily bisacodyl (DULCOLAX) 5 mg, Oral, 2 times daily PRN, Do not crush, chew, or split. cinnamon 2,000 mg, Oral, Daily clotrimazole (Lotrimin) 1 % cream Topical, 2 times daily dilTIAZem CD (CARDIZEM CD) 180 mg, Oral, Daily dulaglutide (TRULICITY) 4.5 mg, SubCUTAneous, Weekly, Every FLUoxetine (PROZAC) 40 mg, Oral, Daily gabapentin (NEURONTIN) 100 mg, Oral, 2 times daily insulin regular (HumuLIN R U-500 KWIKPEN) 500 UNIT/ML CONCENTRATED injection SubCUTAneous, 3 times daily, 285 units before breakfast/260 units before lunch/285 units before dinner Lactobacillus Acid-Pectin (Acidophilus/[place] Pectin) tablet 1 tablet, Oral, 2 times daily lisinopril 40 MG tablet Every 24 hours Loratadine 10 MG capsule Oral magnesium hydroxide (Milk of Magnesia Concentrate) 2400 MG/10ML suspension suspension Every 24 hours megestrol (Megace) 20 MG tablet 1 tablet, Oral, 2 times daily melatonin 10 mg, Oral, Nightly PRN metoclopramide (REGLAN) 10 mg, Oral, 4 times daily metoprolol tartrate (Lopressor) 25 MG tablet 1 tablet, Oral, 2 times daily miconazole (Micotin) 2 % powder Topical, 2 times daily ondansetron (ZOFRAN) 4 mg, Oral, Every 6 hours PRN pantoprazole (PROTONIX) 40 mg, Oral polyethylene glycol (PEG) 3350 (GLYCOLAX) 17 g, Oral, Daily potassium chloride CR (K-Tab) 20 MEQ ER tablet Every 24 hours Scheduled Meds:ARIPiprazole, 10 mg, Oral, q24h aspirin, 81 mg, Oral, Daily atorvastatin, 10 mg, Oral, Nightly clotrimazole, , Topical, BID dilTIAZem CD, 180 mg, Oral, Daily enoxaparin, 30 mg, SubCUTAneous, 2 times per day ertapenem, 1,000 mg, IntraVENous, q24h FLUoxetine, 40 mg, Oral, Daily gabapentin, 100 mg, Oral, BID heparin flush, 250 Units, IntraCATHeter, q12h insulin lispro, 0-18 Units, SubCUTAneous, TID WC insulin lispro, 30 Units, SubCUTAneous, Once insulin lispro, 90 Units, SubCUTAneous, TID WC insulin NPH, 120 Units, SubCUTAneous, Nightly insulin NPH, 160 Units, SubCUTAneous, q AM [Held by provider] lisinopril, 40 mg, Oral, Daily megestrol, 20 mg, Oral, BID melatonin, 10 mg, Oral, Nightly metoprolol tartrate, 25 mg, Oral, BID pantoprazole, 40 mg, Oral, qAM AC polyethylene glycol (PEG) 3350, 17 g, Oral, Daily sodium chloride 0.9%, 10 mL, IntraCATHeter, q12h Continuous Infusions: PRN Meds:PRN medications: acetaminophen, aluminum & magnesium hydroxide-simethicone, dextrose, dextrose, glucagon (rDNA), glucose, heparin flush, labetalol, ondansetron ODT OR ondansetron, polyethylene glycol (PEG) 3350, prochlorperazine, sodium chloride 0.9% Diagnostic Workup: I reviewed pertinent Laboratory results, Radiographic results, and Other Clinical Notes at the time of today's encounter. Labs: No components found for: LABA1C No components found for: "EAG" Lab Results Component Value Date NA 134 (L) 10/14/2023 K 3.9 10/14/2023 CL 102 10/14/2023 CO2 25 10/14/2023 BUN 35 10/14/2023 CREATININE 0.98 10/14/2023 GLUCOSE 250 (H) 10/14/2023 CALCIUM 8.8 10/14/2023 Lab Results Component Value Date CHLPL 125 08/29/2020 Lab Results Component Value Date TRIG 190 08/29/2020 Lab Results Component Value Date HDL 31 (A) 08/29/2020 Lab Results Component Value Date LDLCALC 56 08/29/2020 Lab Results Component Value Date VLDL 38 08/29/2020 No results found for: CHOLHDLRATIO No results found for: [id number] Lab Results Component Value Date TSH 2.356 11/26/2020 Radiology reportsas per the Radiologist Radiology: CT abdomen pelvis w contrast Result Date: 10/08/2023 [facility] 1965 [id number] Exam Date/Time: 10/08/2023 09:36 Procedure: CT ABDOMEN PELVIS W CONTRAST Ordering Provider: ROBERTSON MEREDITH Reason For Exam: Nausea/vomiting CT ABDOMEN AND PELVIS WITH CONTRAST CLINICAL INDICATION: Nausea and vomiting. TECHNIQUE: Multi-axial 3mm sections through the abdomen and pelvis following 75 mL of Isoview contrast media. No oral contrast was administered. Coronal and sagittal reconstructions were reviewed. Dose reduction was employed with automated exposure control. COMPARISON: 08/17/2023. FINDINGS: Lower thorax: Patchy opacities in the right lung base. Otherwise unremarkable. Stomach: Unremarkable. Liver: Normal size and contours. The liver demonstrates generalized diminished attenuation as compared to the spleen, compatible with hepatic steatosis. No focal lesion. Biliary tree: Hyperdensity within the gallbladder lumen, suggestive of sludge and/or cholelithiasis. No pericholecystic inflammatory change by CT. No biliary dilatation. Spleen: Normal. Adrenals: Normal. Pancreas: Normal. Kidneys: Symmetric contrast enhancement without evidence of hydronephrosis. No focal renal lesion is identified. Free air or fluid: None. Mesenteric/retroperitoneal: No adenopathy or inflammation. Aorta: Normal caliber of aorta and bilateral common iliac arteries. Bowel: No inflammatory changes in the right lower quadrant. No inflammatory change or bowel dilatation is noted. Urinary bladder: Unremarkable. Abdominal wall/soft tissues: No ventral hernia is evident. Pelvic organs/viscera: The uterus is present. Inguinal: No lymphadenopathy. Osseous structures: Advanced multilevel thoracolumbar spine degenerative changes including DISH. Advanced bilateral hip osteoarthritis. 1. No evidence of acute infectious or inflammatory process in the abdomen or pelvis. 2. The liver demonstrates generalized diminished attenuation as compared to the spleen, compatible with hepatic steatosis. 3. Hyperdensity within the gallbladder lumen, suggestive of sludge and/or cholelithiasis; consider right upper quadrant ultrasound. 4. Patchy opacities in the right lung base. Report Dictated on Electronically Signed By: Bao Hill MD Electronically Signed Date/Time: 10/08/2023 10:23 AM EST XR chest 1 view Result Date: 10/07/2023 Patient Name: WILL JACINTO : 1965 Exam Date/Time: 10/07/2023 07:31 Procedure: XR CHEST 1 VIEW Ordering Provider: MUSTAFA KATHRYN Reason For Exam: altered, hypoglyc CHEST (Frontal View) History: Hypoglycemia, change in mental status Comparison: 08/08/2023 Findings: Frontal chest view shows diminished lung volume with interstitial prominence and small linear basilar atelectasis without acute infiltrate or overt congestion. The heart is normal in size. There is no mediastinal widening, sizable pleural effusion, or other significant change from last exam. There is spondylosis. Chronic findings. No appreciable acute pulmonary process. Report Dictated on Electronically Signed By: Angel Randhawa MD Electronically Signed Date/Time: 10/07/2023 7:[address] head wo IV contrast Result Date: 10/07/2023 Patient Name: WILL JACINTO : 1965 Exam Date/Time: 10/07/2023 07:29 Procedure: CT HEAD WO IV CONTRAST Ordering Provider: MUSTAFA KATHRYN Reason For Exam: AMS UNENHANCED HEAD CT History: Change in mental status Comparison: None available Technique: Multislice axial CT sections obtained from the base to the vertex of the brain without IV contrast enhancement. Multiplanar sagittal and coronal reconstructed images also obtained. Dose reduction employed with automated exposure control. Findings: There is mild parenchymal loss with prominent cortical sulci and fissures, not unusual for age. The ventricles are normal in size for age. There is no intracranial hemorrhage, midline shift, or other mass effect in the brain. The exam is limited without contrast enhancement. There are mild carotid siphon calcifications. The paranasal sinuses and bilateral mastoid air cells are clear. There is spondylosis with prominent calcific/ossific densities at the cervical cranial and C1-C2 junction that are not adequately visualized for proper evaluation. Mild parenchymal volume loss. No evidence of acute intracranial process. 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 other toe(s), unspecified side (HCC) Anxiety disorder Bipolar 1 disorder ([facility]) Blood circulation, collateral Cellulitis chronic L lower leg COVID 12/08/2021 Depression Diabetes mellitus (HCC) Type II, on insulin Disease of blood and blood forming organ Endometrial carcinoma (HCC) 11/25/2020 Endometrial hyperplasia Foot ulcer (HCC) Hx of blood clots RLE prior to amputation Hyperlipidemia Hypertension Lymphedema 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; no specimens WISDOM TOOTH EXTRACTION Allergy(ies): No Known Allergies Family History: Family History Problem Relation Name Age of Onset No Known Problems Mother No Known Problems Father Social History: Social History Tobacco Use Smoking status: Never Smokeless tobacco: Never Vaping Use Vaping Use: Never used Substance Use Topics Alcohol use: No Drug use: Never Portions of the information within this encounter were entered using an electronic dictation system. Best attempts were made to edit/proofread the information prior to note completion. Despite the review of information, some errors may remain. If there are questions related to the information contained within the note please contact the signing physician directly. I spent 35 minutes with the pt which involved coordination of care, medical evaluation, review of records, and/or counseling of the pt regarding his/her condition/disease state/prognosis on the date of this note. Images from the original note were not included. Hospitalist Progress Note 10/15/[id number]: Please page [facility] Hospitalist for any issues. Admit Date: 10/07/2023 PCP: Jared Guzman Room#: [id number] Brief hospital course: Patient admitted 10/07/2023 for hypoglycemia 2/2 insulin use with poor PO intake, hypothermia, ?sepsis. 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 Initially presented from [facility] with hypoglycemia and unresponsiveness, POC glucose 36. Had been having poor PO intake 4-5 days d/t N/V and insulin had not been adjusted. On presentation he was hypothermic (91 F); mentation had not initially improved s/p resolution of hypoglycemia, but once warming was underway mentation was returning to baseline. Found to have blood cultures (+)Acinetobacter lwoffi (kelley-sens), and given (+)SIRS on presentation he likely did have sepsis POA. Symptoms improved on antibx, and endocrinology was heavily involved with adjusting patient's insulin regimen. Subjective: Interval History: No overnight issues. Feeling well today, no complaints, better control of nausea. Adult diet Regular; Isolation Tray (Disposables); 5 carb choices (75 gm/meal) 24HR INTAKE/OUTPUT: Intake/Output Summary (Last 24 hours) at 10/15/2023924 Last data filed at 10/15/2023 0500 Gross per 24 hour Intake 720 ml Output 1450 ml Net -730 ml 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 other toe(s), unspecified side (HCC) Anxiety disorder Bipolar 1 disorder ([facility]) Blood circulation, collateral Cellulitis chronic L lower leg COVID 12/08/2021 Depression Diabetes mellitus ([facility]) Type II, on insulin Disease of blood and blood forming organ Endometrial carcinoma ([facility]) 11/25/2020 Endometrial hyperplasia Foot ulcer ([facility]) Hx of blood clots RLE prior to amputation Hyperlipidemia Hypertension Lymphedema 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, RLE Morbidly obese (HCC) Muscle weakness Osteomyelitis ([facility]) Osteomyelitis ([facility]) 2019 RLE Other lack of coordination Other specified soft tissue disorders Other symbolic dysfunctions Schizophrenia ([facility]) Sleep apnea no CPAP Venous insufficiency Objective: Vitals: BP (!) 174/71 Pulse 73 Temp 36.2 C (97.1 F) (Temporal) Resp 16 Ht 5' 6" (1.676 m) Wt (!) 316 lb (143 kg) SpO2 94% BMI 51.00 kg/m Pulse Ox: SpO2 Av.2 % Min: 94 % Max: 98 % General appearance: Obese. NAD. Cooperative with exam. Respiratory: CTAB. Normal effort. Cardiovascular: RRR. No M/R/G. Abdominal: NBS, soft, NT. Musculoskeletal: R-AKA. Neurologic: Alert. Answering questions & following directions appropriately. Labs/Studies: The following labs and/or studies were reviewed by me as part of today's encounter. HEME: Recent Labs 10/13/23 0118 WBC 9.1 RBC 3.73 HGB 10.5* HCT 31.7 MCV 84.9 RDW 14.7* PLT 324 CHEM: Recent Labs 10/13/23 0118 10/14/23 0315 NA 129* 134* K 3.8 3.9 CL 95* 102 CO2 24 25 BUN 44 35 CREATININE 1.28 0.98 EGFR 49.3* 67.9 GLUCOSE 383* 250* CALCIUM 8.5 8.8 ANIONGAP 10 7 Recent Labs 10/13/23 0118 MG 1.7 (MG, CRP, SEDRATE, and CKTOTAL are separate not part of a panel; PHOS may be separate or part of a RENAL panel) LIVER: No results for input(s): "AST", "ALT", "BILITOT", "BILIDIR", "ALKPHOS", "ALBUMIN", "PROT", "LIPASE", "GGT" in the last 72 hours. (on any date where BILIDIR is present then there is a full hepatic panel, not a CMP; lipase & GGT are separate labs not part of a panel) COAG: No results for input(s): "PROTIME", "INR", "PTT" in the last 72 hours. CARDIAC: No results for input(s): "TROPONINI" in the last 72 hours. NT PRO BNP Date Value Ref Range Status 06/28/2023 150 <20 - 300 pg/mL Final Recent Labs 10/13/23 2103 10/14/23 0102 10/14/23 0752 10/14/23 1247 10/14/23 1620 10/14/23 1956 POCGLU 232* 235* 268* 360* 338* 305* No results for input(s): "LACTATE" in the last 72 hours. No results found for: "DDIMER", "PROCAL", "COVID19", "HGBA1C", "TSH", "[id number]", "FOLATE", "VITD25", "CHOL", "TRIG", "HDL", LDLCALC Urine Culture: Results for orders placed or performed during the hospital encounter of 10/07/23 Urine culture Specimen: Urine, Clean Catch Result Value Ref Range Urine Culture No growth (<1,000 CFU/mL) Blood Culture: Results for orders placed or performed during the hospital encounter of 10/07/23 Blood culture Site #2 - Assess for effectiveness of treatment Specimen: Blood, Venous Result Value Ref Range Blood Culture No growth at 5 days Blood culture Site #1 - Assess for effectiveness of treatment Specimen: Blood, Venous Result Value Ref Range Blood Culture No growth at 5 days Currently Ordered Medications: Current Facility-Administered Medications: acetaminophen (Tylenol) tablet 650 mg, 650 mg, Oral, q4h PRN, JEREMY Liao CNP, 650 mg at 10/13/23 0117 aluminum & magnesium hydroxide-simethicone (Mylanta) 200-200-20 MG/5ML oral suspension 20 mL, 20 mL, Oral, q6h PRN, Marcio Armando MD ARIPiprazole (Abilify) tablet 10 mg, 10 mg, Oral, q24h, JEREMY Liao CNP, 10 mg at 10/14/23 1730 aspirin EC tablet 81 mg, 81 mg, Oral, Daily, JEREMY Liao CNP, 81 mg at 10/14/23 0919 atorvastatin (Lipitor) tablet 10 mg, 10 mg, Oral, Nightly, JEREMY Liao CNP, 10 mg at 10/14/232005 clotrimazole (Lotrimin) 1 % cream, , Topical, BID, JEREMY Liao CNP, Given at 10/14/232006 dextrose 5 % infusion, 100 mL/hr, IntraVENous, PRN, JEREMY Liao CNP, Stopped at 10/10/23 0552 dextrose 50 % solution 12.5 g, 12.5 g, IntraVENous, PRN, EJREMY Liao CNP dilTIAZem CD (Cardizem CD) 24 hr capsule 180 mg, 180 mg, Oral, Daily, JEREMY Liao CNP, 180 mg at 10/14/23 0920 enoxaparin (Lovenox) syringe 30 mg, 30 mg, SubCUTAneous, 2 times per day, JEREMY Liao CNP, 30 mg at 10/14/232005 ertapenem (INVanz) 1,000 mg in sodium chloride 0.9 % 50 mL IVPB Mini-Bag Plus, 1,000 mg, IntraVENous, q24h, Mukul Taradha Coreas DO, Stopped at 10/14/23 1617 FLUoxetine (PROzac) capsule 40 mg, 40 mg, Oral, Daily, Rachael Robertson APRN - KRANTHI, 40 mg at 10/14/23 0920 gabapentin (Neurontin) capsule 100 mg, 100 mg, Oral, BID, Rachael Robertson APRN - KRANTHI, 100 mg at 10/14/232006 glucagon (human recombinant) injection 1 mg, 1 mg, IntraMUSCular, PRN, Rachael Robertson APRN - KRANTHI glucose oral gel 15 g, 15 g, Oral, PRN, Rachael Robertson APRN - KRANTHI, 15 g at 10/10/23 0216 heparin flush injection 250 Units, 250 Units, IntraCATHeter, q12h, Funmi Askew MD, 250 Units at 10/15/23 0332 heparin flush injection 250 Units, 250 Units, IntraCATHeter, PRN, Funmi Askew MD Insulin Lispro (Humalog) injection 0-18 Units, 0-18 Units, SubCUTAneous, TID WC, Amrita Garcia MD, 12 Units at 10/14/23 1730 Insulin Lispro (Humalog) injection 90 Units, 90 Units, SubCUTAneous, TID WC, Анна Villela MD insulin NPH (Isophane) (HumuLIN N,NovoLIN N) injection 120 Units, 120 Units, SubCUTAneous, Nightly, Анна Villela MD, 120 Units at 10/14/232006 insulin NPH (Isophane) (HumuLIN N,NovoLIN N) injection 160 Units, 160 Units, SubCUTAneous, q AM, Анна Villela MD labetalol (Normodyne,Trandate) injection 20 mg, 20 mg, IntraVENous, q6h PRN, Ricardo Spring MD, 20 mg at 10/13/23 1308 [Held by provider] lisinopril tablet 40 mg, 40 mg, Oral, Daily, Mayda Olmstead MD, 40 mg at 10/11/23 0942 megestrol (Megace) tablet 20 mg, 20 mg, Oral, BID, Rachael Robertson APRN - KRANTHI, 20 mg at 10/14/232006 melatonin tablet 10 mg, 10 mg, Oral, Nightly, JEREMY Liao CNP, 10 mg at 10/14/232006 metoprolol tartrate (Lopressor) tablet 25 mg, 25 mg, Oral, BID, JEREMY Liao CNP, 25 mg at 10/14/232006 ondansetron ODT (Zofran-ODT) disintegrating tablet 4 mg, 4 mg, Oral, q8h PRN OR ondansetron (Zofran) injection 4 mg, 4 mg, IntraVENous, q6h PRN, Marcio Armando MD pantoprazole (ProtoNix) EC tablet 40 mg, 40 mg, Oral, qAM AC, JEREMY Liao CNP, 40 mg at 10/15/23 0619 polyethylene glycol (PEG) 3350 (Miralax) packet 17 g, 17 g, Oral, Daily PRN, JEREMY Liao CNP polyethylene glycol (PEG) 3350 (Miralax) packet 17 g, 17 g, Oral, Daily, JEREMY Liao CNP, 17 g at 10/13/23 0809 prochlorperazine (Compazine) injection 5 mg, 5 mg, IntraVENous, q6h PRN, Marcio Armando MD, 5 mg at 10/13/23 2140 sodium chloride 0.9% (NS) flush 10 mL, 10 mL, IntraCATHeter, q12h, Funmi Askew MD, 10 mL at 10/15/23 0332 sodium chloride 0.9% (NS) flush 10 mL, 10 mL, IntraCATHeter, PRN, Funmi Askew MD Medical Decision Making: Acute, acute on chronic, unstable/uncontrolled chronic problems: Acinetobacter lwoffi bacteremia Sepsis POA, resolving, unclear source IDDM2 ("brittle") with hyperglycemia & hypoglycemia, polyneuropathy, gastroparesis Hyperglycemia was doing better yesterday but had skipped insulin dose and now >400 again Intermittent N/V with known gastroparesis, improved LLE erythema, previously eval'd and deemed unlikely to be cellulitis Stable chronic problems affecting care, new non-acute diagnoses: Class III morbid obesity JOHN no CPAP (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 Villela, given hyperglycemia today she would like another day to adjust insulin and get patient back onto a U-500 regimen - outpatient f/u 10/27/23 - holding ACEi d/t NOY, will resume at lower dose at discharge - PT/OT/CM/SW - delirium precautions: increase activity - DVT prophylaxis: enoxaparin and encourage ambulation Data: (CAT1) Reviewed 1 notes from different specialty or health system (each=1). (CAT1) Reviewed 1 labs/studies previously ordered by me not previously counted (each=1, panels count as 1). (CAT3) Mgmt of the patient was discussed with Dr. Villela, who stated, in summary: (see above) (Note: labs/studies can only be counted once--either when ordered or when reviewed--not both.) Advance Directive: Full Code Anticipated Discharge - Date - 10/16 - Location - Skilled Facility, [facility] - Pending the following - final endo recs, bed hold no auth req'd and OPAT already sent to facility Marcio Armando MD Division of Hospitalist Medicine [place] [place]: Moderate (3x CAT1 -OR- 1x CAT2 -OR- 1x CAT3) Complexity: Acute illness or injury posing a threat to life or body function (HIGH). Risk: Prescription drug/IVF/colloid was initiated, discontinued, adjusted; or reviewed with decision to maintain current orders (MOD). Estimated MDM: Medium (05938/83792) or higher Note: the above MDM determinations are made by me for my own use to estimate my end-of-day billing codes. However, documentation is reviewed by professional coders; following their review of documentation, and in accordance with current AMA CPT, CMS, and ACDIS guidelines, the actual billing code(s) may differ from my estimate. Images from the original note were not included. [facility] - Infectious Diseases Attending Progress Note Subjective- Following for BSI d/t Acinetobacter lwoffii. Pt resting in bed. Abdominal pain improving. Eating w/o difficulty. Reports good appetite. Denies F/C. No further complaints. D/c planning in progress. Objective- Vitals- Patient Vitals for the past 24 hrs: BP Temp Temp src Pulse Resp SpO2 10/14/23 1806 (!) 147/51 36.3 C (97.4 F) Temporal 79 20 98 % 10/14/23 1623 124/53 36.3 C (97.4 F) Temporal 77 20 95 % 10/14/23 1037 114/56 36.4 C (97.5 F) Temporal 74 14 94 % 10/14/23 0655 135/62 36 C (96.8 F) Temporal 69 20 97 % 10/14/23 0234 115/54 36.2 C (97.1 F) Temporal 64 16 92 % Physical Exam Constitutional: General: He is not in acute distress. Appearance: Normal appearance. He is normal weight. He is ill-appearing. He is not toxic-appearing or diaphoretic. HENT: Head: Normocephalic and atraumatic. Nose: Nose normal. Mouth/Throat: Mouth: Mucous membranes are moist. Pharynx: Oropharynx is clear. No oropharyngeal exudate or posterior oropharyngeal erythema. Eyes: General: No scleral icterus. Extraocular Movements: Extraocular movements intact. Pupils: Pupils are equal, round, and reactive to light. Cardiovascular: Rate and Rhythm: Normal rate and regular rhythm. Pulses: Normal pulses. Heart sounds: Normal heart sounds. No murmur heard. No friction rub. No gallop. Pulmonary: Effort: Pulmonary effort is normal. No respiratory distress. Breath sounds: Normal breath sounds. No wheezing, rhonchi or rales. Abdominal: General: Abdomen is flat. There is no distension. Palpations: There is no mass. Tenderness: There is no abdominal tenderness. Musculoskeletal: General: No swelling or deformity. Normal range of motion. Right lower leg: No edema. Left lower leg: No edema. Comments: RUE PICC in place Skin: General: Skin is warm and dry. Coloration: Skin is not pale. Findings: No erythema, lesion or rash. Neurological: Mental Status: He is alert. Labs- Lab Results Component Value Date/Time NA 134 (L) 10/14/2023 0315 K 3.9 10/14/2023 0315 CL 102 10/14/2023 0315 CO2 25 10/14/2023 0315 CO2 23 02/09/2023 1022 BUN 35 10/14/2023 0315 BUN 26 (H) 02/09/2023 1022 CREATININE 0.98 10/14/2023 031 CREATININE 0.86 02/09/2023 1022 GLUCOSE 250 (H) 10/14/2023 0315 GLUCOSE 433 (H) 02/09/2023 1022 CALCIUM 8.8 10/14/2023 0315 CALCIUM 9.2 02/09/2023 1022 PROT 6.5 10/11/2023 0355 PROT 6.4 02/09/2023 1022 BILITOT 0.7 10/11/2023 035 BILITOT 0.3 02/09/2023 1022 ALKPHOS 143 (H) 10/11/2023 0355 ALKPHOS 178 (H) 02/09/2023 1022 AST 20 10/11/2023 0355 AST 16 02/09/2023 1022 ALT 28 10/11/2023 0355 ALT 29 02/09/2023 1022 PROCAL 0.83 (H) 10/07/2023 1803 Lab Results Component Value Date/Time WBC 9.1 10/13/2023 0118 HGB 10.5 (L) 10/13/2023 0118 HCT 31.7 10/13/2023 0118 PLT 324 10/13/2023 0118 GRANULOCYTES 73.2 12/08/2020 1558 LYMPHOPCT 26.5 10/08/2023 0307 MONOPCT 7.3 10/08/2023 0307 LABEOS 1.0 12/08/2020 1558 BASOPCT 0.8 10/08/2023 0307 NEUTROABS 6.5 10/08/2023 0307 Micro- 10/07 Blood CX ID (-) 10/07 Blood CX 1/2 (+) for Acinetobacter lwoffii 10/07 Respiratory Pathogens Panel by PCR (-) 10/07 Urine CX NGTD 10/08 MRSA by PCR (+) for MRSA 10/09 Blood CX x2 NGTD Lines/Drains/Airways- 10/11 RUE PIV Radiography/Echo/Other- 10/07 CTH w/o IV contrast Mild parenchymal volume loss. No acute intracranial process. Spondylosis w/ calcific/ossific densities at cranial cervical and C1-C2 junction not adequately visualized for proper evaluation. 10/07 CXR 1V Diminished lung volume w/ interstitial prominence and small linear basilar atelectasis w/o acute infiltrate or overt congestion. Heart normal in size. No mediastinal widening, sizable pleural effusion, or other significant change from last exam. There is spondylosis. No acute pulmonary process. 10/08 CT a/p w/ contrast No evidence of acute infectious or inflammatory process in abdomen or pelvis. The liver demonstrates generalized diminished attenuation as compared to the spleen, compatible with hepatic steatosis. Hyperdensity within gallbladder lumen, suggestive of sludge and/or cholelithiasis. Patchy opacities in R lung base. 10/08 US abdomen limited Gallstones. No definite acute biliary process. Limited due to body habitus and bowel gas. 10/12 CXR 1V No acute process. S/p L-sided CVC placement. No PNX. Antimicrobials, Start/End Dates- 10/07-10/08 vancomycin 10/07-10/10 piperacillin/tazobactam 10/10-10/12 ampicillin/sulbactam 10/12- ertapenem History of Present Illness- Maria Luisa Jacinto is a 57 y/o transgender M (pronouns he/him) w/ PMH of RLE OM s/p RLE AKA, ID-T2DM, gastroparesis, JOHN (not on CPAP), h/o recurrent cellulitis of LLE, h/o endometrial CA, HTN, HLD, lymphedema, venous insufficiency, schizophrenia, bipolar 1 disorder, anxiety, depression. Presented to ED 10/07 d/t AMS, hypoglycemia. POC glucose was 36; given glucagon x2. ED w/u showed T91.4F, WBC 13.3. Armando Hugger was placed and D50 given. Blood CXs 10/07 are 1/2 (+) for Acinetobacter lwoffii. The ID service is following for BSI due to Acinetobacter lwoffii. Impression- Bloodstream infection due to Acinetobacter lwoffii Presented w/ hypoglycemia + AMS; found to have hypothermia + leukocytosis Blood CXs from 10/07 were 1/2 (+) for A lwoffii Source unclear at this time; CT a/p showed no acute process On IV ertapenem Plan is for 14d course, end date 10/21 Gallstones w/o acute biliary process H/o RLE OM d/t MRSA, CRE s/p RLE AKA Type II diabetes mellitus- insulin-dependent; c/b gastroparesis Obstructive sleep apnea- not on CPAP H/o recurrent cellulitis of LLE H/o endometrial CA Hypertension Hyperlipidemia Lymphedema Venous insufficiency Schizophrenia Bipolar 1 disorder Anxiety Depression Plan- Maintain IV ertapenem x2 weeks, end date 10/21 OPAT form in chart Favor completing full course w/ IV therapy; would avoid FQ due to ongoing hypo- and hyperglycemia issues No opposition to d/c from ID standpoint once medically stable The ID service will sign off; feel free to call back with any further questions/concerns. Based on diagnoses and management, combination of acute and chronic problems, exacerbations and/or acuity, this visit should be considered to be of low complexity. Mukul Coreas DO [facility] [place] Infectious Diseases Office Tel. [phone] Nutrition Assessment Type and Reason for Visit: Reassess Nutrition Recommendations/Plan: Can continue with 2000 calorie CHO Control diet as ordered, if pt able to tolerate several smaller meals throughout the day (spaced out) this will likely promote GI tolerance as well as BG control, 75gm CHO can be spread out during meal period and CHO should always be matched with protein. Per MNT protocol will modify ONS frequency from TID to once daily (pt also requesting chocolate), will add half chicken/cheddar sandwich as evening/HS snack as well. Please continue to record % consumed of meals in I/O Flowsheet. RD to monitor weight, labs, fluid, overall nutritional status, diet education needs & follow up weekly. Malnutrition Assessment: Malnutrition Status: At risk for malnutrition (Comment) (RD to adjust ONS regimen, will send evening snack as well) Context: Acute Illness Findings of the 6 clinical characteristics of malnutrition: Energy Intake: Mild decrease in energy intake (Comment) (still varied PO intakes, pt reports only eating 1 meal yesterday, today had 2 tanzanian yogurt parfairts and had just eaten small personal kelley pizza, ordered a grilled chicken sandwich as well, not drinking ONS frequently, PO intakes TAPROOM ATTENDANT poor for 4 days) Weight Loss: Unable to assess (no new/acute weight to assess) Body Fat Loss: No significant body fat loss Muscle Mass Loss: No significant muscle mass loss Fluid Accumulation: Mild Extremities, Generalized Quality Control Inspector Heading Strength: Not Performed Nutrition Assessment: Pt with previously noted PMH including DM w/ gastroparesis (documented as 'brittle') & polyneuropathy, HTN, HLD, s/p R AKA presented initially from nursing facility due to hypoglycemia and unresponsiveness; pt was noted to have poor PO intake for at least 4 days TAPROOM ATTENDANT in addition to N/V, when pt was initially observed at facility she had very low BG of 36; Endocrinology consulted here and continu to follow, adjusting/monitoring insulin paired with PO intake, most BG here upwards of 300 (but had been low down to 45 on 10/10) ; ID consulted as well for management of acinetobacter Iwoffi bacteremia and recommending start ertapenem w/ end date 10/21, PICC was placed 10/12; pt remains on ECHO Control diet (75gm CHO per meal), ? size of meals (suspected to be smaller meals) with ? PO intake/adequacy, limited documentation in chart to review, per documentation specialist appears pt had 2 small yogurts this morning; receiving Vanilla Ensure HP TID (between meals). RD visited pt in room this afternoon, pt had just eaten personal kelley pizza and so far tolerated OK, had '2 small yogurts' (villegas yogurt parfait per pt) this morning and had just ordered a grilled chicken sandwich which was on the way (pt still within CHO allottment for lunch), feels appetite is slightly improved however only had 1 meal yesterday and skipped other 2 meals, felt very nauseated in the evening and nearly threw up, isn't drinking Ensure as much and would like RD to adjust frequency from TID to once daily, would like to try Chocolate flavor also; c/o being very thirsty but admits this is likely r/t uncontrolled DM; at facility ([facility]) pt enjoys/tolerates some meals, others do 'not cooperate with me' like the chicken parmesan, pt believes facility does a lot of 'baking' and not 'frying' their foods; asking if it is OK if family brings in sugar free/zero water flavoring and RD approved, pt able to recall CHO allottment here and does feel '75 is appropriate', otherwise no nutrition questions/concerns. Nutrition Related Findings: neg I/O; +BS, last BM 10/13; generalized nonpitting, mild BUE, +1 LLE edema; medications reviewed; labs: Sodium (134), BG (250, up to 4-500 at times, Endo following) Wound Type: None Current Nutrition Therapies: Adult diet Regular; Isolation Tray (Disposables); 5 carb choices (75 gm/meal) Current Oral Intake Average Meal Intake: (2 small yogurts today, only had 1 meal yesterday) Average Supplements Intake: (not drinking 3 per day, had a few unopened Ensure HP at bedside) Anthropometric Measures: Height: 167.6 cm (5' 6") Current Body Weight: (no new weight to assess) Admission Body Weight: 143 kg (316 lb) (bed scale) Usual Body Weight: 152 kg (335 lb) (03/08/23 Deedee scale) [place] Body Weight (lbs) (Calculated): 130 lbs [place] Body Weight (Kg) (Calculated): 59 kg Weight Adjustment For: Amputation % Weight Adjustment: 10.1 - AKA Total Adjusted Percentage (Calculated): 10.1 Adjusted [place] Body Weight (lbs) (Calculated): 116.9 lbs Adjusted [place] Body Weight (kg) (Calculated): 53.14 kg BMI Categories: Obese Class 3 (BMI 40.0 or greater) Nutrition Interventions: Nutrition Education/Counseling: Education declined Coordination of Nutrition Care: Continue to monitor while inpatient Plan of Care discussed with: pt Goals: Previous Goal Met: Progressing toward Goal(s) Goals: PO intake 50% or greater, by next RD assessment (smaller/more frequent meals) Nutrition Monitoring and Evaluation: Behavioral-Environmental Outcomes: None Identified Food/Nutrient Intake Outcomes: Diet Advancement/Tolerance, Food and Nutrient Intake, Supplement Intake Physical Signs/Symptoms Outcomes: Biochemical Data, GI Status, Nausea or Vomiting, Meal Time Behavior, Fluid Status or Edema, Skin, Weight Discharge Planning: Too soon to determine Ana Reyes RD Contact: Secure chat or *[phone] Department of Internal Medicine Division of Endocrinology, Diabetes, & Metabolism Endocrinology Note Patient Name: Will Jacinto : 1965 AGE: 57 y.o. Room/Bed: [facility]/[address] Admission Date: 10/07/2023 Visit Date: 10/14/2023 Reason for Endocrine Consult: U-500 dosing, hypoglycemia Provider/Team Requesting Consult: IMS PCP: Jared Guzman Outpt District Sales Coordinator: Dr. Lee ASSESSMENT: Type 2 diabetes with hypoglycemia and long-term insulin use Acinetobacter bacteriemia NOY, resolving Diabetic polyneuropathy Diabetic gastroparesis Morbid obesity Body mass index is 51 kg/m . H/o R AKA PLAN: Blood sugars are not at goal but much improved Will continue to hold U-500 for now and adjust NPH/Humalog insulin Increased NPH to 120-100 units bid Continue Humalog 60 units with meals -- gave 30 units only for BF due to consuming a small meal - informed RN Continue Humalog high dose scale with meals Will switch back to U-500 insulin once more stable ICU goal <180 GMF goal <150 POCT BG ACHS Hypoglycemia per protocol Carb controlled diet ANTICIPATED ENDOCRINE HOME GOING RECOMMENDATIONS: Optimized for Discharge from Endocrine standpoint: yes Home Going Endocrine Rx Recommendations-- U 500 Insulin on hold NPH 120-100 units BID and Humalog 60 TID + high dose SS Trulicity-to be held for now -- pt has a h/o gastroparesis and has ongoing nausea Outpt Follow Up-- 10/27/2023 SUBJECTIVE/HPI: CHIEF COMPLAINT: Chief Complaint Patient presents with Hypoglycemia Patient is a 57-year-old transgender male with history of type 2 diabetes, hypertension, hyperlipidemia, diabetic polyneuropathy, s/p right AKA and [facility]/unresponsiveness due to poor PO intake. Type of DM: 2 Onset of DM: 1991 Home DM Medication Regimen: U-500 insulin - 285 units before breakfast/260 units before lunch/285 units before dinner , Trulicity 4.5 mg weekly DM control (last A1c/glucose data): 7.7% on current admission Resides at the [facility] Interim history: Patient was seen at bedside Poor PO intake yesterday due to nausea No vomiting or AP Nausea better today Ate BF -- 2 yogurts Not drinking Ensure, mostly diet Coke Pt was off his Pure wick - urinated on the bed pad ID following - on IV Abx Plan for DC to [facility] [place] Glucose Date/Time Value Ref Range Status 10/14/2023 07:52 AM 268 (H) 70 - 100 mg/dL Final 10/14/2023 01:02 AM 235 (H) 70 - 100 mg/dL Final 10/13/2023 09:03 PM 232 (H) 70 - 100 mg/dL Final 10/13/2023 08:18 PM 243 (H) 70 - 100 mg/dL Final 10/13/2023 05:43 PM 241 (H) 70 - 100 mg/dL Final 10/13/2023 11:59 AM 311 (H) 70 - 100 mg/dL Final Comment: Caregiver Notified; Review of Systems ROS negative except for those mentioned in HPI. OBJECTIVE: Vitals: 10/13/23 2142 10/14/23 0234 10/14/23 0655 10/14/23 1037 BP: (!) 152/75 115/54 135/62 114/56 BP Location: Left arm Right arm Right arm Right arm Patient Position: Lying Lying Sitting Pulse: 75 64 69 74 Resp: 16 20 14 Temp: 36.3 C (97.3 F) 36.2 C (97.1 F) 36 C (96.8 F) 36.4 C (97.5 F) TempSrc: Temporal Temporal Temporal Temporal SpO2: 97% 92% 97% 94% Weight: Height: Physical Exam Vitals and nursing note reviewed. Constitutional: Appearance: He is obese. Eyes: Conjunctiva/sclera: Conjunctivae normal. Cardiovascular: Rate and Rhythm: Normal rate and regular rhythm. Heart sounds: Normal heart sounds. Pulmonary: Effort: Pulmonary effort is normal. Abdominal: General: There is distension. Palpations: Abdomen is soft. Musculoskeletal: General: Swelling and deformity present. Left lower leg: Edema present. Comments: Right AKA Skin: General: Skin is dry. Neurological: General: No focal deficit present. Mental Status: He is alert. Psychiatric: Attention and Perception: Attention normal. Mood and Affect: Affect is flat. Behavior: Behavior is slowed. 24 hour intake/output: Intake/Output Summary (Last 24 hours) at 10/14/2023 1214 Last data filed at 10/14/2023 0930 Gross per 24 hour Intake 480 ml Output 1200 ml Net -720 ml Diet: Adult diet Regular; Isolation Tray (Disposables); 5 carb choices (75 gm/meal) Medications (as per EMR): HomeMeds: Current Outpatient Medications Medication Instructions acetaminophen (TYLENOL) 650 mg, Oral, Every 4 hours PRN ARIPiprazole (Abilify) 10 MG tablet Every 24 hours aspirin 81 MG EC tablet 1 tablet, Oral, Daily atorvastatin (Lipitor) 10 MG tablet 1 tablet, Oral, Daily bisacodyl (DULCOLAX) 5 mg, Oral, 2 times daily PRN, Do not crush, chew, or split. cinnamon 2,000 mg, Oral, Daily clotrimazole (Lotrimin) 1 % cream Topical, 2 times daily dilTIAZem CD (CARDIZEM CD) 180 mg, Oral, Daily dulaglutide (TRULICITY) 4.5 mg, SubCUTAneous, Weekly, Every FLUoxetine (PROZAC) 40 mg, Oral, Daily gabapentin (NEURONTIN) 100 mg, Oral, 2 times daily insulin regular (HumuLIN R U-500 KWIKPEN) 500 UNIT/ML CONCENTRATED injection SubCUTAneous, 3 times daily, 285 units before breakfast/260 units before lunch/285 units before dinner Lactobacillus Acid-Pectin (Acidophilus/Rosemead Pectin) tablet 1 tablet, Oral, 2 times daily lisinopril 40 MG tablet Every 24 hours Loratadine 10 MG capsule Oral magnesium hydroxide (Milk of Magnesia Concentrate) 2400 MG/10ML suspension suspension Every 24 hours megestrol (Megace) 20 MG tablet 1 tablet, Oral, 2 times daily melatonin 10 mg, Oral, Nightly PRN metoclopramide (REGLAN) 10 mg, Oral, 4 times daily metoprolol tartrate (Lopressor) 25 MG tablet 1 tablet, Oral, 2 times daily miconazole (Micotin) 2 % powder Topical, 2 times daily ondansetron (ZOFRAN) 4 mg, Oral, Every 6 hours PRN pantoprazole (PROTONIX) 40 mg, Oral polyethylene glycol (PEG) 3350 (GLYCOLAX) 17 g, Oral, Daily potassium chloride CR (K-Tab) 20 MEQ ER tablet Every 24 hours Scheduled Meds:ARIPiprazole, 10 mg, Oral, q24h aspirin, 81 mg, Oral, Daily atorvastatin, 10 mg, Oral, Nightly clotrimazole, , Topical, BID dilTIAZem CD, 180 mg, Oral, Daily enoxaparin, 30 mg, SubCUTAneous, 2 times per day ertapenem, 1,000 mg, IntraVENous, q24h FLUoxetine, 40 mg, Oral, Daily gabapentin, 100 mg, Oral, BID heparin flush, 250 Units, IntraCATHeter, q12h insulin lispro, 0-18 Units, SubCUTAneous, TID WC insulin lispro, 30 Units, SubCUTAneous, Once insulin lispro, 60 Units, SubCUTAneous, TID WC insulin NPH, 100 Units, SubCUTAneous, Nightly insulin NPH, 120 Units, SubCUTAneous, q AM [Held by provider] lisinopril, 40 mg, Oral, Daily megestrol, 20 mg, Oral, BID melatonin, 10 mg, Oral, Nightly metoprolol tartrate, 25 mg, Oral, BID pantoprazole, 40 mg, Oral, qAM AC polyethylene glycol (PEG) 3350, 17 g, Oral, Daily sodium chloride 0.9%, 10 mL, IntraCATHeter, q12h Continuous Infusions: PRN Meds:PRN medications: acetaminophen, dextrose, dextrose, glucagon (rDNA), glucose, heparin flush, labetalol, ondansetron, polyethylene glycol (PEG) 3350, prochlorperazine, sodium chloride 0.9% Diagnostic Workup: I reviewed pertinent Laboratory results, Radiographic results, and Other Clinical Notes at the time of today's encounter. Labs: No components found for: LABA1C No components found for: "EAG" Lab Results Component Value Date NA 134 (L) 10/14/2023 K 3.9 10/14/2023 CL 102 10/14/2023 CO2 25 10/14/2023 BUN 35 10/14/2023 CREATININE 0.98 10/14/2023 GLUCOSE 250 (H) 10/14/2023 CALCIUM 8.8 10/14/2023 Lab Results Component Value Date CHLPL 125 08/29/2020 Lab Results Component Value Date TRIG 190 08/29/2020 Lab Results Component Value Date HDL 31 (A) 08/29/2020 Lab Results Component Value Date LDLCALC 56 08/29/2020 Lab Results Component Value Date VLDL 38 08/29/2020 No results found for: CHOLHDLRATIO No results found for: [id number] Lab Results Component Value Date TSH 2.356 11/26/2020 Radiology reportsas per the Radiologist Radiology: CT abdomen pelvis w contrast Result Date: 10/08/2023 Patient Name: WILL JACINTO : 1965 Exam Date/Time: 10/08/2023 09:36 Procedure: CT ABDOMEN PELVIS W CONTRAST Ordering Provider: ROBERTSON MEREDITH Reason For Exam: Nausea/vomiting CT ABDOMEN AND PELVIS WITH CONTRAST CLINICAL INDICATION: Nausea and vomiting. TECHNIQUE: Multi-axial 3mm sections through the abdomen and pelvis following 75 mL of Isoview contrast media. No oral contrast was administered. Coronal and sagittal reconstructions were reviewed. Dose reduction was employed with automated exposure control. COMPARISON: 08/17/2023. FINDINGS: Lower thorax: Patchy opacities in the right lung base. Otherwise unremarkable. Stomach: Unremarkable. Liver: Normal size and contours. The liver demonstrates generalized diminished attenuation as compared to the spleen, compatible with hepatic steatosis. No focal lesion. Biliary tree: Hyperdensity within the gallbladder lumen, suggestive of sludge and/or cholelithiasis. No pericholecystic inflammatory change by CT. No biliary dilatation. Spleen: Normal. Adrenals: Normal. Pancreas: Normal. Kidneys: Symmetric contrast enhancement without evidence of hydronephrosis. No focal renal lesion is identified. Free air or fluid: None. Mesenteric/retroperitoneal: No adenopathy or inflammation. Aorta: Normal caliber of aorta and bilateral common iliac arteries. Bowel: No inflammatory changes in the right lower quadrant. No inflammatory change or bowel dilatation is noted. Urinary bladder: Unremarkable. Abdominal wall/soft tissues: No ventral hernia is evident. Pelvic organs/viscera: The uterus is present. Inguinal: No lymphadenopathy. Osseous structures: Advanced multilevel thoracolumbar spine degenerative changes including DISH. Advanced bilateral hip osteoarthritis. 1. No evidence of acute infectious or inflammatory process in the abdomen or pelvis. 2. The liver demonstrates generalized diminished attenuation as compared to the spleen, compatible with hepatic steatosis. 3. Hyperdensity within the gallbladder lumen, suggestive of sludge and/or cholelithiasis; consider right upper quadrant ultrasound. 4. Patchy opacities in the right lung base. Report Dictated on Electronically Signed By: Bao Hill MD Electronically Signed Date/Time: 10/08/2023 10:23 AM EST XR chest 1 view Result Date: 10/07/2023 Patient Name: WILL JACINTO : 1965 Exam Date/Time: 10/07/2023 07:31 Procedure: XR CHEST 1 VIEW Ordering Provider: MUSTAFA KATHRYN Reason For Exam: altered, hypoglyc CHEST (Frontal View) History: Hypoglycemia, change in mental status Comparison: 08/08/2023 Findings: Frontal chest view shows diminished lung volume with interstitial prominence and small linear basilar atelectasis without acute infiltrate or overt congestion. The heart is normal in size. There is no mediastinal widening, sizable pleural effusion, or other significant change from last exam. There is spondylosis. Chronic findings. No appreciable acute pulmonary process. Report Dictated on Electronically Signed By: Angel Randhawa MD Electronically Signed Date/Time: 10/07/2023 7:[address] head wo IV contrast Result Date: 10/07/2023 Patient Name: WILL JACINTO : 1965 Exam Date/Time: 10/07/2023 07:29 Procedure: CT HEAD WO IV CONTRAST Ordering Provider: MUSTAFA KATHRYN Reason For Exam: AMS UNENHANCED HEAD CT History: Change in mental status Comparison: None available Technique: Multislice axial CT sections obtained from the base to the vertex of the brain without IV contrast enhancement. Multiplanar sagittal and coronal reconstructed images also obtained. Dose reduction employed with automated exposure control. Findings: There is mild parenchymal loss with prominent cortical sulci and fissures, not unusual for age. The ventricles are normal in size for age. There is no intracranial hemorrhage, midline shift, or other mass effect in the brain. The exam is limited without contrast enhancement. There are mild carotid siphon calcifications. The paranasal sinuses and bilateral mastoid air cells are clear. There is spondylosis with prominent calcific/ossific densities at the cervical cranial and C1-C2 junction that are not adequately visualized for proper evaluation. Mild parenchymal volume loss. No evidence of acute intracranial process. 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 other toe(s), unspecified side (HCC) Anxiety disorder Bipolar 1 disorder (HCC) Blood circulation, collateral Cellulitis chronic L lower leg COVID 12/08/2021 Depression Diabetes mellitus ([facility]) Type II, on insulin Disease of blood and blood forming organ Endometrial carcinoma ([facility]) 11/25/2020 Endometrial hyperplasia Foot ulcer ([facility]) Hx of blood clots RLE prior to amputation Hyperlipidemia Hypertension Lymphedema 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, RLE Morbidly obese ([facility]) Muscle weakness Osteomyelitis (HCC) Osteomyelitis (HCC) 2019 RLE Other lack of coordination Other specified soft tissue disorders Other symbolic dysfunctions Schizophrenia (HCC) Sleep apnea no CPAP Venous insufficiency Past Surgical History: Past Surgical History: Procedure Laterality Date ABCESS DRAINAGE Right 09/09/2018 FOOT; ACH COLONOSCOPY 09/19/[address] Hyde DILATION AND CURETTAGE OF UTERUS 05/18/2019 HYSTEROSCOPY 12/23/2021 LEG AMPUTATION THROUGH KNEE Right 06/16/2019 UPPER GASTROINTESTINAL ENDOSCOPY N/A 06/29/2023 Dr Sergio Sibley at [facility]; no specimens WISDOM TOOTH EXTRACTION Allergy(ies): No Known Allergies Family History: Family History Problem Relation Name Age of Onset No Known Problems Mother No Known Problems Father Social History: Social History Tobacco Use Smoking status: Never Smokeless tobacco: Never Vaping Use Vaping Use: Never used Substance Use Topics Alcohol use: No Drug use: Never Portions of the information within this encounter were entered using an electronic dictation system. Best attempts were made to edit/proofread the information prior to note completion. Despite the review of information, some errors may remain. If there are questions related to the information contained within the note please contact the signing physician directly. I spent 35 minutes with the pt which involved coordination of care, medical evaluation, review of records, and/or counseling of the pt regarding his/her condition/disease state/prognosis on the date of this note. Images from the original note were not included. Hospitalist Progress Note 10/14/2023 [phone]: Please page IMS night Hospitalist for any issues. Admit Date: 10/07/2023 PCP: Jared Guzman Room#: [id number] Brief hospital course: Patient admitted 10/07/2023 for hypoglycemia 2/2 insulin use with poor PO intake, hypothermia, ?sepsis. 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 Initially presented from [facility] with hypoglycemia and unresponsiveness, POC glucose 36. Had been having poor PO intake 4-5 days d/t N/V and insulin had not been adjusted. On presentation he was hypothermic (91 F); mentation had not initially improved s/p resolution of hypoglycemia, but once warming was underway mentation was returning to baseline. Found to have blood cultures (+)Acinetobacter lwoffi (kelley-sens), and given (+)SIRS on presentation he likely did have sepsis POA. Symptoms improved on antibx, and endocrinology was heavily involved with adjusting patient's insulin regimen. Subjective: Interval History: RR called last night for lethargy, ABG was ordered but upon attempting to collect patient fully woke-up and was A&O x4, pleasant and interactive, and the RR was canceled. He reports some intermittent nausea today, but overall doing well and no concerns. 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 other toe(s), unspecified side (HCC) Anxiety disorder Bipolar 1 disorder ([facility]) Blood circulation, collateral Cellulitis chronic L lower leg COVID 12/08/2021 Depression Diabetes mellitus ([facility]) Type II, on insulin Disease of blood and blood forming organ Endometrial carcinoma (HCC) 11/25/2020 Endometrial hyperplasia Foot ulcer ([facility]) Hx of blood clots RLE prior to amputation Hyperlipidemia Hypertension Lymphedema 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, RLE Morbidly obese ([facility]) Muscle weakness Osteomyelitis (HCC) Osteomyelitis ([facility]) 2019 RLE Other lack of coordination Other specified soft tissue disorders Other symbolic dysfunctions Schizophrenia ([facility]) Sleep apnea no CPAP Venous insufficiency Objective: Vitals: BP 135/62 (BP Location: Right arm, Patient Position: Lying) Pulse 69 Temp 36 C (96.8 F) (Temporal) Resp 20 Ht 5' 6" (1.676 m) Wt (!) 316 lb (143 kg) SpO2 97% BMI 51.00 kg/m Pulse Ox: SpO2 Av.2 % Min: 92 % Max: 97 % General appearance: Obese. NAD. Cooperative with exam. Respiratory: CTAB. Normal effort. Cardiovascular: RRR. No M/R/G. Abdominal: NBS, soft, NT. Musculoskeletal: R-AKA. Integument: Previously noted erythematous-appearing area on LLE appears unchanged from prior. Neurologic: Alert. Answering questions & following directions appropriately. Labs/Studies: The following labs and/or studies were reviewed by me as part of today's encounter. HEME: Recent Labs 10/12/23 0402 10/13/23 0118 WBC 7.4 9.1 RBC 4.40 3.73 HGB 12.4 10.5* HCT 37.5 31.7 MCV 85.1 84.9 RDW 14.8* 14.7* PLT 355 324 CHEM: Recent Labs 10/12/23 0402 10/13/23 0118 10/14/23 0315 NA 131* 129* 134* K 4.5 3.8 3.9 CL 97* 95* 102 CO2 24 24 25 BUN 25 44 35 CREATININE 0.98 1.28 0.98 EGFR 67.9 49.3* 67.9 GLUCOSE 401* 383* 250* CALCIUM 9.4 8.5 8.8 ANIONGAP 10 10 7 Recent Labs 10/13/23 0118 MG 1.7 (MG, CRP, SEDRATE, and CKTOTAL are separate not part of a panel; PHOS may be separate or part of a RENAL panel) LIVER: No results for input(s): "AST", "ALT", "BILITOT", "BILIDIR", "ALKPHOS", "ALBUMIN", "PROT", "LIPASE", "GGT" in the last 72 hours. (on any date where BILIDIR is present then there is a full hepatic panel, not a CMP; lipase & GGT are separate labs not part of a panel) COAG: No results for input(s): "PROTIME", "INR", "PTT" in the last 72 hours. CARDIAC: No results for input(s): "TROPONINI" in the last 72 hours. NT PRO BNP Date Value Ref Range Status 06/28/2023 150 <20 - 300 pg/mL Final Recent Labs 10/13/23 0804 10/13/23 1159 10/13/23 1743 10/13/23 2018 10/13/23 2103 10/14/23 0102 POCGLU 446* 311* 241* 243* 232* 235* No results for input(s): "LACTATE" in the last 72 hours. No results found for: "DDIMER", "PROCAL", "COVID19", "HGBA1C", "TSH", "[id number]", "FOLATE", "VITD25", "CHOL", "TRIG", "HDL", LDLCALC Urine Culture: Results for orders placed or performed during the hospital encounter of 10/07/23 Urine culture Specimen: Urine, Clean Catch Result Value Ref Range Urine Culture No growth (<1,000 CFU/mL) Blood Culture: Results for orders placed or performed during the hospital encounter of 10/07/23 Blood culture Site #2 - Assess for effectiveness of treatment Specimen: Blood, Venous Result Value Ref Range Blood Culture No growth at 4 days Blood culture Site #1 - Assess for effectiveness of treatment Specimen: Blood, Venous Result Value Ref Range Blood Culture No growth at 4 days Currently Ordered Medications: Current Facility-Administered Medications: acetaminophen (Tylenol) tablet 650 mg, 650 mg, Oral, q4h PRN, JEREMY Liao CNP, 650 mg at 10/13/23 0117 ARIPiprazole (Abilify) tablet 10 mg, 10 mg, Oral, q24h, Rachael Robertson APRN - KRANTHI, 10 mg at 10/13/23 1745 aspirin EC tablet 81 mg, 81 mg, Oral, Daily, Rachael Robertson APRN - KRANTHI, 81 mg at 10/13/23 0809 atorvastatin (Lipitor) tablet 10 mg, 10 mg, Oral, Nightly, Rachael Robertson APRN - KRANTHI, 10 mg at 10/13/23 214 clotrimazole (Lotrimin) 1 % cream, , Topical, BID, JEREMY Liao CNP, Given at 10/13/23 214 dextrose 5 % infusion, 100 mL/hr, IntraVENous, PRN, JEREMY Liao CNP, Stopped at 10/10/23 0552 dextrose 50 % solution 12.5 g, 12.5 g, IntraVENous, PRN, Rachael Robertson APRN - KRANTHI dilTIAZem CD (Cardizem CD) 24 hr capsule 180 mg, 180 mg, Oral, Daily, JEREMY Liao CNP, 180 mg at 10/13/23 0809 enoxaparin (Lovenox) syringe 30 mg, 30 mg, SubCUTAneous, 2 times per day, JEREMY Liao CNP, 30 mg at 10/13/23 214 ertapenem (INVanz) 1,000 mg in sodium chloride 0.9 % 50 mL IVPB Mini-Bag Plus, 1,000 mg, IntraVENous, q24h, Mukul Coreas DO, Stopped at 10/13/23 1508 FLUoxetine (PROzac) capsule 40 mg, 40 mg, Oral, Daily, Rachael Robertson APRN - KRANTHI, 40 mg at 10/13/23 0809 gabapentin (Neurontin) capsule 100 mg, 100 mg, Oral, BID, JEREMY Liao CNP, 100 mg at 10/13/232144 glucagon (human recombinant) injection 1 mg, 1 mg, IntraMUSCular, PRN, JEREMY Liao CNP glucose oral gel 15 g, 15 g, Oral, PRN, JEREMY Liao CNP, 15 g at 10/10/23 0216 heparin flush injection 250 Units, 250 Units, IntraCATHeter, q12h, Funmi Askew MD, 250 Units at 10/14/23 0314 heparin flush injection 250 Units, 250 Units, IntraCATHeter, PRN, Funmi Askew MD Insulin Lispro (Humalog) injection 0-18 Units, 0-18 Units, SubCUTAneous, TID WC, Amrita Garcia MD, 6 Units at 10/13/23 1812 Insulin Lispro (Humalog) injection 60 Units, 60 Units, SubCUTAneous, TID WC, Анна Villela MD, 60 Units at 10/13/23 1310 insulin NPH (Isophane) (HumuLIN N,NovoLIN N) injection 100 Units, 100 Units, SubCUTAneous, Nightly, Анна Villela MD, 100 Units at 10/13/232142 insulin NPH (Isophane) (HumuLIN N,NovoLIN N) injection 120 Units, 120 Units, SubCUTAneous, q AM, Анна Villela MD labetalol (Normodyne,Trandate) injection 20 mg, 20 mg, IntraVENous, q6h PRN, Ricardo Spring MD, 20 mg at 10/13/23 1308 [Held by provider] lisinopril tablet 40 mg, 40 mg, Oral, Daily, Mayda Olmstead MD, 40 mg at 10/11/23 0942 megestrol (Megace) tablet 20 mg, 20 mg, Oral, BID, JEREMY Liao CNP, 20 mg at 10/13/232141 melatonin tablet 10 mg, 10 mg, Oral, Nightly, JEREMY Liao CNP, 10 mg at 10/13/232145 metoprolol tartrate (Lopressor) tablet 25 mg, 25 mg, Oral, BID, Rachael Robertson APRN - [employer]ING [employer] WORKER, 25 mg at 10/13/23 214 ondansetron (Zofran) tablet 4 mg, 4 mg, Oral, q6h PRN, Rachael Robertson APRN - [employer]ING [employer] WORKER, 4 mg at 10/14/23 0611 pantoprazole (ProtoNix) EC tablet 40 mg, 40 mg, Oral, qAM AC, Rachael Robertson PERSONAL CARE SERVICE PROVIDER - [employer]ING [employer] WORKER, 40 mg at 10/14/23 0611 polyethylene glycol (PEG) 3350 (Miralax) packet 17 g, 17 g, Oral, Daily PRN, Rachael Robertson PERSONAL CARE SERVICE PROVIDER - [employer]ING [employer] WORKER polyethylene glycol (PEG) 3350 (Miralax) packet 17 g, 17 g, Oral, Daily, Rachael Robertson PERSONAL CARE SERVICE PROVIDER - SHE[employer]ING [employer] WORKER, 17 g at 10/13/23 0809 prochlorperazine (Compazine) injection 5 mg, 5 mg, IntraVENous, q6h PRN, Mayda Olmstead MD, 5 mg at 10/13/23 2140 sodium chloride 0.9% (NS) flush 10 mL, 10 mL, IntraCATHeter, q12h, Funmi Askew MD, 10 mL at 10/14/23 0314 sodium chloride 0.9% (NS) flush 10 mL, 10 mL, IntraCATHeter, PRN, Funmi Askew MD Medical Decision Making: Acute, acute on chronic, unstable/uncontrolled chronic problems: Acinetobacter lwoffi bacteremia Sepsis POA Unsure of source IDDM2 ("brittle") with hyperglycemia & hypoglycemia, polyneuropathy, gastroparesis Still with hyperglycemia but gradually becoming more controlled (now mostly 200s instead of 400s) Intermittent N/V with known gastroparesis LLE erythema, previously eval'd and deemed unlikely to be cellulitis NOY, resolved Hyponatremia, resolved Stable chronic problems affecting care, new non-acute diagnoses: Class III morbid obesity JOHN no CPAP (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) prior R-AKA prior DVT Schizoaffective bipolar type Cholelithiasis As a result of the above findings & factors, the following mgmt was pursued: - ID following, appreciate recs - erta through 10/21 (complete 14-days total therapy) - PICC placed 10/12 - endocrinology following, appreciate recs - okay for dc on this regimen: NPH 120-100 units bid, Humalog 60 units tid, HDSSI; hold Trulicity d/t gastroparesis - outpatient f/u 10/27/23 - holding ACEi d/t NOY, will resume at lower dose at discharge - modifying nausea regimen so more options are available - PT/OT/CM/SW - delirium precautions: increase activity - DVT prophylaxis: enoxaparin and encourage ambulation Data: (CAT1) Reviewed 1 notes from different specialty or health system (each=1). (CAT1) Reviewed 2 labs/studies previously ordered by me not previously counted (each=1, panels count as 1). (Note: labs/studies can only be counted once--either when ordered or when reviewed--not both.) Advance Directive: Full Code Anticipated Discharge - Date - 10/15 - Location - Skilled Facility, [facility] - Pending the following - bed hold no auth req'd Marcio Armando MD Division of Hospitalist Medicine [place] [place]: Moderate (3x CAT1 -OR- 1x CAT2 -OR- 1x CAT3) Complexity: Acute illness or injury posing a threat to life or body function (HIGH). Risk: Prescription drug/IVF/colloid was initiated, discontinued, adjusted; or reviewed with decision to maintain current orders (MOD). Estimated MDM: Medium (53773/81788) or higher Note: the above MDM determinations are made by me for my own use to estimate my end-of-day billing codes. However, documentation is reviewed by professional coders; following their review of documentation, and in accordance with current AMA CPT, CMS, and ACDIS guidelines, the actual billing code(s) may differ from my estimate. Upon entering patient's room. Patient lethargic and only responding to physical stimulation. Follows commands but very weak. Mumbling words. 2111 vitals 147/81, 94% SpO2 on RA, 75 HR, BG 232. ISO COORDINATOR called. 2118 vitals: 152/75, HR 75, CgT215% on RA Department of Internal Medicine Division of Endocrinology, Diabetes, & Metabolism Endocrinology Note Patient Name: Will Jacinto : 1965 AGE: 57 y.o. Room[facility]: [facility] Admission Date: 10/07/2023 Visit Date: 10/13/2023 Reason for Endocrine Consult: U-500 dosing, hypoglycemia Provider/Team Requesting Consult: IMS PCP: Jared Guzman Outpt District Sales Coordinator: Dr. Lee ASSESSMENT: Type 2 diabetes with hypoglycemia and long-term insulin use Acinetobacter bacteriemia NOY, resolving Diabetic polyneuropathy Diabetic gastroparesis Morbid obesity Body mass index is 51 kg/m . H/o R AKA PLAN: Blood sugars are still uncontrolled Will continue to hold U-500 for now and adjust NPH/Humalog insulin Increase NPH to 90 units bid Increase Humalog to 60 units with meals Continue Humalog high dose scale with meals Will switch back to U-500 insulin once more stable ICU goal <180 GMF goal <150 POCT BG ACHS Hypoglycemia per protocol Carb controlled diet ANTICIPATED ENDOCRINE HOME GOING RECOMMENDATIONS: Optimized for Discharge from Endocrine standpoint: No Home Going Endocrine Rx Recommendations-- U 500 Insulin doses to be decided Trulicity-to be decided -- pt has a h/o gastroparesis so may need to discontinue Outpt Follow Up-- 10/27/2023 SUBJECTIVE/HPI: CHIEF COMPLAINT: Chief Complaint Patient presents with Hypoglycemia Patient is a 57-year-old transgender male with history of type 2 diabetes, hypertension, hyperlipidemia, diabetic polyneuropathy, s/p right AKA and [facility] for hypoglycemia/unresponsiveness due to poor PO intake. Type of DM: 2 Onset of DM: 1991 Home DM Medication Regimen: U-500 insulin - 285 units before breakfast/260 units before lunch/285 units before dinner , Trulicity 4.5 mg weekly DM control (last A1c/glucose data): 7.7% on current admission Resides at the [place] Interim history: Patient was seen at bedside PO intake has been variable He had a bedtime snack -- 1/2 sandwich Not drinking Ensure Having a lot of nausea No vomiting or AP ID following Glucose Date/Time Value Ref Range Status 10/13/2023 11:59 AM 311 (H) 70 - 100 mg/dL Final Comment: Caregiver Notified; 10/13/2023 08:04 AM 446 (H) 70 - 100 mg/dL Final Comment: Caregiver Notified; 10/13/2023 06:26 AM 435 (H) 70 - 100 mg/dL Final 10/12/2023 10:52 PM 359 (H) 70 - 100 mg/dL Final 10/12/2023 07:39 PM 327 (H) 70 - 100 mg/dL Final 10/12/2023 04:29 PM 364 (H) 70 - 100 mg/dL Final Review of Systems ROS negative except for those mentioned in HPI. OBJECTIVE: Vitals: 10/12/23 2235 10/13/23 0237 10/13/23 0559 10/13/23 1106 BP: 137/61 (!) 145/59 (!) 147/71 (!) 203/91 BP Location: Left arm Left arm Right arm Left arm Patient Position: Lying Lying Lying Sitting Pulse: 81 79 77 90 Resp: 16 20 20 24 Temp: (!) 35.9 C (96.7 F) (!) 35.4 C (95.8 F) (!) 35.5 C (95.9 F) (!) 35.9 C (96.7 F) TempSrc: Temporal Temporal Temporal Temporal SpO2: 97% 96% 96% 96% Weight: Height: Physical Exam Vitals and nursing note reviewed. Constitutional: Appearance: He is obese. Eyes: Conjunctiva/sclera: Conjunctivae normal. Cardiovascular: Rate and Rhythm: Normal rate and regular rhythm. Heart sounds: Normal heart sounds. Pulmonary: Effort: Pulmonary effort is normal. Abdominal: General: There is distension. Palpations: Abdomen is soft. Musculoskeletal: General: Swelling and deformity present. Left lower leg: Edema present. Comments: Right AKA Skin: General: Skin is dry. Neurological: General: No focal deficit present. Mental Status: He is alert. Psychiatric: Attention and Perception: Attention normal. Mood and Affect: Affect is flat. Behavior: Behavior is slowed. 24 hour intake/output: Intake/Output Summary (Last 24 hours) at 10/13/2023 1248 Last data filed at 10/13/2023 0900 Gross per 24 hour Intake 900 ml Output 1950 ml Net -1050 ml Diet: Adult diet Regular; Isolation Tray (Disposables); 5 carb choices (75 gm/meal) Medications (as per EMR): HomeMeds: Current Outpatient Medications Medication Instructions acetaminophen (TYLENOL) 650 mg, Oral, Every 4 hours PRN ARIPiprazole (Abilify) 10 MG tablet Every 24 hours aspirin 81 MG EC tablet 1 tablet, Oral, Daily atorvastatin (Lipitor) 10 MG tablet 1 tablet, Oral, Daily bisacodyl (DULCOLAX) 5 mg, Oral, 2 times daily PRN, Do not crush, chew, or split. cinnamon 2,000 mg, Oral, Daily clotrimazole (Lotrimin) 1 % cream Topical, 2 times daily dilTIAZem CD (CARDIZEM CD) 180 mg, Oral, Daily dulaglutide (TRULICITY) 4.5 mg, SubCUTAneous, Weekly, Every FLUoxetine (PROZAC) 40 mg, Oral, Daily gabapentin (NEURONTIN) 100 mg, Oral, 2 times daily insulin regular (HumuLIN R U-500 KWIKPEN) 500 UNIT/ML CONCENTRATED injection SubCUTAneous, 3 times daily, 285 units before breakfast/260 units before lunch/285 units before dinner Lactobacillus Acid-Pectin (Acidophilus/[place] Pectin) tablet 1 tablet, Oral, 2 times daily lisinopril 40 MG tablet Every 24 hours Loratadine 10 MG capsule Oral magnesium hydroxide (Milk of Magnesia Concentrate) 2400 MG/10ML suspension suspension Every 24 hours megestrol (Megace) 20 MG tablet 1 tablet, Oral, 2 times daily melatonin 10 mg, Oral, Nightly PRN metoclopramide (REGLAN) 10 mg, Oral, 4 times daily metoprolol tartrate (Lopressor) 25 MG tablet 1 tablet, Oral, 2 times daily miconazole (Micotin) 2 % powder Topical, 2 times daily ondansetron (ZOFRAN) 4 mg, Oral, Every 6 hours PRN pantoprazole (PROTONIX) 40 mg, Oral polyethylene glycol (PEG) 3350 (GLYCOLAX) 17 g, Oral, Daily potassium chloride CR (K-Tab) 20 MEQ ER tablet Every 24 hours Scheduled Meds:ARIPiprazole, 10 mg, Oral, q24h aspirin, 81 mg, Oral, Daily atorvastatin, 10 mg, Oral, Nightly clotrimazole, , Topical, BID dilTIAZem CD, 180 mg, Oral, Daily enoxaparin, 30 mg, SubCUTAneous, 2 times per day ertapenem, 1,000 mg, IntraVENous, q24h FLUoxetine, 40 mg, Oral, Daily gabapentin, 100 mg, Oral, BID heparin flush, 250 Units, IntraCATHeter, q12h insulin lispro, 0-18 Units, SubCUTAneous, TID WC insulin lispro, 60 Units, SubCUTAneous, TID WC insulin NPH, 90 Units, SubCUTAneous, BID [Held by provider] lisinopril, 40 mg, Oral, Daily magnesium sulfate, 2,000 mg, IntraVENous, Once megestrol, 20 mg, Oral, BID melatonin, 10 mg, Oral, Nightly metoprolol tartrate, 25 mg, Oral, BID pantoprazole, 40 mg, Oral, qAM AC polyethylene glycol (PEG) 3350, 17 g, Oral, Daily sodium chloride 0.9%, 10 mL, IntraCATHeter, q12h Continuous Infusions: PRN Meds:PRN medications: acetaminophen, dextrose, dextrose, glucagon (rDNA), glucose, heparin flush, labetalol, ondansetron, polyethylene glycol (PEG) 3350, prochlorperazine, sodium chloride 0.9% Diagnostic Workup: I reviewed pertinent Laboratory results, Radiographic results, and Other Clinical Notes at the time of today's encounter. Labs: No components found for: LABA1C No components found for: "EAG" Lab Results Component Value Date NA 129 (L) 10/13/2023 K 3.8 10/13/2023 CL 95 (L) 10/13/2023 CO2 24 10/13/2023 BUN 44 10/13/2023 CREATININE 1.28 10/13/2023 GLUCOSE 383 (H) 10/13/2023 CALCIUM 8.5 10/13/2023 Lab Results Component Value Date CHLPL 125 08/29/2020 Lab Results Component Value Date TRIG 190 08/29/2020 Lab Results Component Value Date HDL 31 (A) 08/29/2020 Lab Results Component Value Date LDLCALC 56 08/29/2020 Lab Results Component Value Date VLDL 38 08/29/2020 No results found for: CHOLHDLRATIO No results found for: [id number] Lab Results Component Value Date TSH 2.356 11/26/2020 Radiology reportsas per the Radiologist Radiology: CT abdomen pelvis w contrast Result Date: 10/08/2023 Patient Name: WILL JACINTO : 1965 [facility]#: [id number] Exam Date/Time: 10/08/2023 09:36 Procedure: CT ABDOMEN PELVIS W CONTRAST Ordering Provider: ROBERTSON MEREDITH Reason For Exam: Nausea/vomiting CT ABDOMEN AND PELVIS WITH CONTRAST CLINICAL INDICATION: Nausea and vomiting. TECHNIQUE: Multi-axial 3mm sections through the abdomen and pelvis following 75 mL of Isoview contrast media. No oral contrast was administered. Coronal and sagittal reconstructions were reviewed. Dose reduction was employed with automated exposure control. COMPARISON: 08/17/2023. FINDINGS: Lower thorax: Patchy opacities in the right lung base. Otherwise unremarkable. Stomach: Unremarkable. Liver: Normal size and contours. The liver demonstrates generalized diminished attenuation as compared to the spleen, compatible with hepatic steatosis. No focal lesion. Biliary tree: Hyperdensity within the gallbladder lumen, suggestive of sludge and/or cholelithiasis. No pericholecystic inflammatory change by CT. No biliary dilatation. Spleen: Normal. Adrenals: Normal. Pancreas: Normal. Kidneys: Symmetric contrast enhancement without evidence of hydronephrosis. No focal renal lesion is identified. Free air or fluid: None. Mesenteric/retroperitoneal: No adenopathy or inflammation. Aorta: Normal caliber of aorta and bilateral common iliac arteries. Bowel: No inflammatory changes in the right lower quadrant. No inflammatory change or bowel dilatation is noted. Urinary bladder: Unremarkable. Abdominal wall/soft tissues: No ventral hernia is evident. Pelvic organs/viscera: The uterus is present. Inguinal: No lymphadenopathy. Osseous structures: Advanced multilevel thoracolumbar spine degenerative changes including DISH. Advanced bilateral hip osteoarthritis. 1. No evidence of acute infectious or inflammatory process in the abdomen or pelvis. 2. The liver demonstrates generalized diminished attenuation as compared to the spleen, compatible with hepatic steatosis. 3. Hyperdensity within the gallbladder lumen, suggestive of sludge and/or cholelithiasis; consider right upper quadrant ultrasound. 4. Patchy opacities in the right lung base. Report Dictated on Electronically Signed By: Bao Hill MD Electronically Signed Date/Time: 10/08/2023 10:23 AM EST XR chest 1 view Result Date: 10/07/2023 Patient Name: WILL JACINTO : 1965 Exam Date/Time: 10/07/2023 07:31 Procedure: XR CHEST 1 VIEW Ordering Provider: MUSTAFA KATHRYN Reason For Exam: altered, hypoglyc CHEST (Frontal View) History: Hypoglycemia, change in mental status Comparison: 08/08/2023 Findings: Frontal chest view shows diminished lung volume with interstitial prominence and small linear basilar atelectasis without acute infiltrate or overt congestion. The heart is normal in size. There is no mediastinal widening, sizable pleural effusion, or other significant change from last exam. There is spondylosis. Chronic findings. No appreciable acute pulmonary process. Report Dictated on Electronically Signed By: Angel Randhawa MD Electronically Signed Date/Time: 10/07/2023 7:[address] head wo IV contrast Result Date: 10/07/2023 Patient Name: WILL JACINTO : 1965 Exam Date/Time: 10/07/2023 07:29 Procedure: CT HEAD WO IV CONTRAST Ordering Provider: MUSTAFA KATHRYN Reason For Exam: AMS UNENHANCED HEAD CT History: Change in mental status Comparison: None available Technique: Multislice axial CT sections obtained from the base to the vertex of the brain without IV contrast enhancement. Multiplanar sagittal and coronal reconstructed images also obtained. Dose reduction employed with automated exposure control. Findings: There is mild parenchymal loss with prominent cortical sulci and fissures, not unusual for age. The ventricles are normal in size for age. There is no intracranial hemorrhage, midline shift, or other mass effect in the brain. The exam is limited without contrast enhancement. There are mild carotid siphon calcifications. The paranasal sinuses and bilateral mastoid air cells are clear. There is spondylosis with prominent calcific/ossific densities at the cervical cranial and C1-C2 junction that are not adequately visualized for proper evaluation. Mild parenchymal volume loss. No evidence of acute intracranial process. 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 other toe(s), unspecified side (HCC) Anxiety disorder Bipolar 1 disorder ([facility]) Blood circulation, collateral Cellulitis chronic L lower leg COVID 12/08/2021 Depression Diabetes mellitus ([facility]) Type II, on insulin Disease of blood and blood forming organ Endometrial carcinoma (HCC) 11/25/2020 Endometrial hyperplasia Foot ulcer (HCC) Hx of blood clots RLE prior to amputation Hyperlipidemia Hypertension Lymphedema 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, RLE Morbidly obese ([facility]) Muscle weakness Osteomyelitis (HCC) Osteomyelitis (HCC) 2019 RLE Other lack of coordination Other specified soft tissue disorders Other symbolic dysfunctions Schizophrenia ([facility]) Sleep apnea no CPAP Venous insufficiency Past Surgical History: Past Surgical History: Procedure Laterality Date ABCESS DRAINAGE Right 09/09/2018 FOOT; ACH COLONOSCOPY 09/19/[address] Hyde DILATION AND CURETTAGE OF UTERUS 05/18/2019 HYSTEROSCOPY 12/23/2021 LEG AMPUTATION THROUGH KNEE Right 06/16/2019 UPPER GASTROINTESTINAL ENDOSCOPY N/A 06/29/2023 Dr Sergio Sibley at [facility]; no specimens WISDOM TOOTH EXTRACTION Allergy(ies): No Known Allergies Family History: Family History Problem Relation Name Age of Onset No Known Problems Mother No Known Problems Father Social History: Social History Tobacco Use Smoking status: Never Smokeless tobacco: Never Vaping Use Vaping Use: Never used Substance Use Topics Alcohol use: No Drug use: Never Portions of the information within this encounter were entered using an electronic dictation system. Best attempts were made to edit/proofread the information prior to note completion. Despite the review of information, some errors may remain. If there are questions related to the information contained within the note please contact the signing physician directly. I spent 35 minutes with the pt which involved coordination of care, medical evaluation, review of records, and/or counseling of the pt regarding his/her condition/disease state/prognosis on the date of this note. Images from the original note were not included. Hospitalist Progress Note 10/13/2023 [id number]: Please page IMS night Hospitalist for any issues. Admit Date: 10/07/2023 PCP: Jared Guzman Room#: [id number] A Brief hospital course: Patient admitted 10/07/2023 for hypoglycemia 2/2 insulin use with poor PO intake, hypothermia, ?sepsis. 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 Initially presented from [facility] with hypoglycemia and unresponsiveness, POC glucose 36. Had been having poor PO intake 4-5 days d/t N/V and insulin had not been adjusted. On presentation he was hypothermic (91 F); mentation had not initially improved s/p resolution of hypoglycemia, but once warming was underway mentation was returning to baseline. Found to have blood cultures (+)Acinetobacter lwoffi (kelley-sens), and given (+)SIRS on presentation he likely did have sepsis POA. Subjective: Interval History: No overnight issues. Some dry heaves this AM, now having some lower abdominal discomfort. 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 other toe(s), unspecified side (HCC) Anxiety disorder Bipolar 1 disorder (HCC) Blood circulation, collateral Cellulitis chronic L lower leg COVID 12/08/2021 Depression Diabetes mellitus (HCC) Type II, on insulin Disease of blood and blood forming organ Endometrial carcinoma (HCC) 11/25/2020 Endometrial hyperplasia Foot ulcer (HCC) Hx of blood clots RLE prior to amputation Hyperlipidemia Hypertension Lymphedema 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, RLE Morbidly obese (HCC) Muscle weakness Osteomyelitis (HCC) Osteomyelitis (HCC) 2019 RLE Other lack of coordination Other specified soft tissue disorders Other symbolic dysfunctions Schizophrenia (HCC) Sleep apnea no CPAP Venous insufficiency Objective: Vitals: BP (!) 147/71 (BP Location: Right arm, Patient Position: Lying) Pulse 77 Temp (!) 35.5 C (95.9 F) (Temporal) Resp 20 Ht 5' 6" (1.676 m) Wt (!) 316 lb (143 kg) SpO2 96% BMI 51.00 kg/m Pulse Ox: SpO2 Av.4 % Min: 96 % Max: 97 % General appearance: Obese. NAD. Cooperative with exam. Respiratory: CTAB. Normal effort. Cardiovascular: RRR. No M/R/G. Abdominal: NBS, soft, NT. Musculoskeletal: R-AKA. Neurologic: Alert. Answering questions & following directions appropriately. Labs/Studies: The following labs and/or studies were reviewed by me as part of today's encounter. HEME: Recent Labs 10/11/23 0355 10/12/23 0402 10/13/23 0118 WBC 9.4 7.4 9.1 RBC 3.82 4.40 3.73 HGB 10.9* 12.4 10.5* HCT 32.1 37.5 31.7 MCV 84.2 85.1 84.9 RDW 14.8* 14.8* 14.7* PLT 347 355 324 CHEM: Recent Labs 10/11/23 0355 10/11/23 1803 10/12/23 0402 10/13/23 0118 NA 128* -- 131* 129* K 4.2 -- 4.5 3.8 CL 95* -- 97* 95* CO2 22 -- 24 24 BUN 28 -- 25 44 CREATININE 1.30 -- 0.98 1.28 EGFR 48.4* -- 67.9 49.3* GLUCOSE 397* 522* 401* 383* CALCIUM 8.7 -- 9.4 8.5 ANIONGAP 12 -- 10 10 Recent Labs 10/11/23 0355 10/13/23 0118 MG 1.3* 1.7 ALBUMIN 3.8 -- (MG, CRP, SEDRATE, and CKTOTAL are separate not part of a panel; PHOS may be separate or part of a RENAL panel) LIVER: Recent Labs 10/11/23 0355 AST 20 ALT 28 BILITOT 0.7 ALKPHOS 143* ALBUMIN 3.8 PROT 6.5 (on any date where BILIDIR is present then there is a full hepatic panel, not a CMP; lipase & GGT are separate labs not part of a panel) COAG: No results for input(s): "PROTIME", "INR", "PTT" in the last 72 hours. CARDIAC: No results for input(s): "TROPONINI" in the last 72 hours. NT PRO BNP Date Value Ref Range Status 06/28/2023 150 <20 - 300 pg/mL Final Recent Labs 10/12/23 1210 10/12/23 1629 10/12/23 1939 10/12/23 2252 10/13/23 0626 10/13/23 0804 POCGLU 304* 364* 327* 359* 435* 446* No results for input(s): "LACTATE" in the last 72 hours. No results found for: "DDIMER", "PROCAL", "COVID19", "HGBA1C", "TSH", "CAZCFTTI92", "FOLATE", "VITD25", "CHOL", "TRIG", "HDL", LDLCALC Urine Culture: Results for orders placed or performed during the hospital encounter of 10/07/23 Urine culture Specimen: Urine, Clean Catch Result Value Ref Range Urine Culture No growth (<1,000 CFU/mL) Blood Culture: Results for orders placed or performed during the hospital encounter of 10/07/23 Blood culture Site #2 - Assess for effectiveness of treatment Specimen: Blood, Venous Result Value Ref Range Blood Culture No growth at 72 hours Blood culture Site #1 - Assess for effectiveness of treatment Specimen: Blood, Venous Result Value Ref Range Blood Culture No growth at 72 hours Currently Ordered Medications: Current Facility-Administered Medications: acetaminophen (Tylenol) tablet 650 mg, 650 mg, Oral, q4h PRN, Rachael Robertson APRN - [employer], 650 mg at 12/06/23 0117 ARIPiprazole (Abilify) tablet 10 mg, 10 mg, Oral, q24h, Rachael Robertson APRN - [employer], 10 mg at 10/12/23 1726 aspirin EC tablet 81 mg, 81 mg, Oral, Daily, Rachael Robertson, PERSONAL CARE SERVICE PROVIDER - [employer], 81 mg at 10/13/23 0809 atorvastatin (Lipitor) tablet 10 mg, 10 mg, Oral, Nightly, Rachael Robertson APRN - [employer], 10 mg at 10/12/232007 clotrimazole (Lotrimin) 1 % cream, , Topical, BID, Rachael Robertson PERSONAL CARE SERVICE PROVIDER - [employer], Given at 10/13/23 0810 dextrose 5 % infusion, 100 mL/hr, IntraVENous, PRN, Rachael Robertson PERSONAL CARE SERVICE PROVIDER - [employer], Stopped at 10/10/23 0552 dextrose 50 % solution 12.5 g, 12.5 g, IntraVENous, PRN, Rachael Robertson PERSONAL CARE SERVICE PROVIDER - [employer] WORKER dilTIAZem CD (Cardizem CD) 24 hr capsule 180 mg, 180 mg, Oral, Daily, Rachael Robertson, PERSONAL CARE SERVICE PROVIDER - [employer], 180 mg at 10/13/23 0809 enoxaparin (Lovenox) syringe 30 mg, 30 mg, SubCUTAneous, 2 times per day, Rachael Robertson PERSONAL CARE SERVICE PROVIDER - [employer], 30 mg at 10/13/23 0809 ertapenem (INVanz) 1,000 mg in sodium chloride 0.9 % 50 mL IVPB Mini-Bag Plus, 1,000 mg, IntraVENous, q24h, Mukul Coreas DO, Stopped at 10/12/23 1631 FLUoxetine (PROzac) capsule 40 mg, 40 mg, Oral, Daily, Rachael Robertson PERSONAL CARE SERVICE PROVIDER - [employer], 40 mg at 10/13/23 0809 gabapentin (Neurontin) capsule 100 mg, 100 mg, Oral, BID, Rachael Robertson, PERSONAL CARE SERVICE PROVIDER - [employer], 100 mg at 10/13/23 0809 glucagon (human recombinant) injection 1 mg, 1 mg, IntraMUSCular, PRN, Rachael Robertson, PERSONAL CARE SERVICE PROVIDER - [employer] glucose oral gel 15 g, 15 g, Oral, PRN, Rachael Robertson, PERSONAL CARE SERVICE PROVIDER - [employer], 15 g at 10/10/23 0216 heparin flush injection 250 Units, 250 Units, IntraCATHeter, q12h, Funmi Askew MD, 250 Units at 10/13/23 0333 heparin flush injection 250 Units, 250 Units, IntraCATHeter, PRN, Funmi Askew MD Insulin Lispro (Humalog) injection 0-18 Units, 0-18 Units, SubCUTAneous, TID WC, Amrita Garcia MD, 18 Units at 10/13/23 0814 Insulin Lispro (Humalog) injection 40 Units, 40 Units, SubCUTAneous, TID WC, Анна Villela MD, 40 Units at 10/13/23 0816 insulin NPH (Isophane) (HumuLIN N,NovoLIN N) injection 70 Units, 70 Units, SubCUTAneous, BID, Анна Villela MD, 70 Units at 10/13/23 0817 labetalol (Normodyne,Trandate) injection 20 mg, 20 mg, IntraVENous, q6h PRN, Ricardo Spring MD, 20 mg at 10/12/23 0555 [Held by provider] lisinopril tablet 40 mg, 40 mg, Oral, Daily, Mayda Olmstead MD, 40 mg at 10/11/23 0942 megestrol (Megace) tablet 20 mg, 20 mg, Oral, BID, JEREMY Liao CNP, 20 mg at 10/13/23 08 melatonin tablet 10 mg, 10 mg, Oral, Nightly, JEREMY Liao CNP, 10 mg at 10/12/232007 metoprolol tartrate (Lopressor) tablet 25 mg, 25 mg, Oral, BID, JEREMY Liao CNP, 25 mg at 10/13/23 0809 ondansetron (Zofran) tablet 4 mg, 4 mg, Oral, q6h PRN, JEREMY Liao CNP, 4 mg at 10/13/23 0810 pantoprazole (ProtoNix) EC tablet 40 mg, 40 mg, Oral, qAM AC, JEREMY Liao CNP, 40 mg at 10/13/23 0623 polyethylene glycol (PEG) 3350 (Miralax) packet 17 g, 17 g, Oral, Daily PRN, Rachael Robertson, PERSONAL CARE SERVICE PROVIDER - [employer]ER polyethylene glycol (PEG) 3350 (Miralax) packet 17 g, 17 g, Oral, Daily, Rachael Robertson PERSONAL CARE SERVICE PROVIDERJermaine Sylvester CNP, 17 g at 10/13/23 0809 prochlorperazine (Compazine) injection 5 mg, 5 mg, IntraVENous, q6h PRN, Mayda Olmstead MD, 5 mg at 10/11/23 0024 sodium chloride 0.9% (NS) flush 10 mL, 10 mL, IntraCATHeter, q12h, Funmi Askew MD, 10 mL at 10/12/23 1606 sodium chloride 0.9% (NS) flush 10 mL, 10 mL, IntraCATHeter, PRN, Funmi Askew MD Medical Decision Making: Acute, acute on chronic, unstable/uncontrolled chronic problems: Acinetobacter lwoffi bacteremia Sepsis POA Unsure of source IDDM2 ("brittle") with hyperglycemia & hypoglycemia, polyneuropathy, gastroparesis NOY Hyponatremia, mild, stable N/V with known gastroparesis, sx nearly fully resolved LLE erythema, previously eval'd and deemed unlikely to be cellulitis Hypomagnesemia, resolved Transient elevation in BP to 203/91 a/w time period during which he has having dry heaves Stable chronic problems affecting care, new non-acute diagnoses: Class III morbid obesity JOHN no CPAP (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) prior R-AKA prior DVT Schizoaffective bipolar type Cholelithiasis As a result of the above findings & factors, the following mgmt was pursued: - ID following, appreciate recs - switch to erta, total duration of therapy 14-days (last day 10/21) - PICC placed 10/12 - endocrinology following, appreciate recs - pausing U-500 to temporarily use NPH + lispro - glucose requires close monitoring d/t risk of recurrent hypoglycemia given the high doses of insulin being used and recent history of the same - holding ACEi d/t NOY - will give add'l Mg IV to get closer to 2.0 - PT/OT/CM/SW - delirium precautions: increase activity - DVT prophylaxis: enoxaparin and encourage ambulation Data: (CAT1) Reviewed 1 notes from different specialty or health system (each=1). (CAT1) Reviewed 3 or more labs/studies previously ordered by me not previously counted (each=1, panels count as 1). (Note: labs/studies can only be counted once--either when ordered or when reviewed--not both.) Advance Directive: Full Code Anticipated Discharge - Date - next couple days - Location - Skilled Facility - Pending the following - endocrine still adjusting insulin & currently not on a long-term insulin regimen Marcio Armando MD [facility] [place]: Moderate (3x CAT1 -OR- 1x CAT2 -OR- 1x CAT3) Complexity: Acute illness or injury posing a threat to life or body function (HIGH). Risk: Use/consideration of therapy requiring intensive monitoring: parenteral cardioactive electrolyte repletion, ex: calcium gluconate, magnesium, potassium (rapid hypotension, arrhythmias or arrest); telemetry, BMP (HIGH). Use/consideration of a therapy requiring intensive monitoring: insulin in setting of recurrent hypoglycemia (HIGH). Estimated MDM: High (58838/12177) Note: the above MDM determinations are made by me for my own use to estimate my end-of-day billing codes. However, documentation is reviewed by professional coders; following their review of documentation, and in accordance with current AMA CPT, CMS, and ACDIS guidelines, the actual billing code(s) may differ from my estimate. Department of Internal Medicine Division of Endocrinology, Diabetes, & Metabolism Endocrinology Note Patient Name: Will Jacinto : 1965 AGE: 57 y.o. Room[facility]Bed: [facility] Admission Date: 10/07/2023 Visit Date: 10/12/2023 Reason for Endocrine Consult: U-500 dosing, hypoglycemia Provider/Team Requesting Consult: [facility] PCP: Jared Dobsonpt District Sales Coordinator: Dr. Lee ASSESSMENT: Type 2 diabetes with hypoglycemia and long-term insulin use Acinetobacter bacteriemia NOY, resolving Diabetic polyneuropathy Diabetic gastroparesis Morbid obesity Body mass index is 51 kg/m . H/o R AKA PLAN: Blood sugars are uncontrolled Will continue to hold U-500 for now and adjust NPH/Humalog insulin Increase NPH to 70 units bid Increase Humalog to 30 units with meals -- increase further to 40 units TID Continue Humalog high dose scale with meals Will switch back to U-500 insulin once more stable ICU goal <180 GMF goal <150 POCT BG ACHS Hypoglycemia per protocol Carb controlled diet ANTICIPATED ENDOCRINE HOME GOING RECOMMENDATIONS: Optimized for Discharge from Endocrine standpoint: No Home Going Endocrine Rx Recommendations-- U 500 Insulin doses to be decided Trulicity-to be decided -- pt has a h/o gastroparesis so may need to discontinue Outpt Follow Up-- 10/27/2023 SUBJECTIVE/HPI: CHIEF COMPLAINT: Chief Complaint Patient presents with Hypoglycemia Patient is a 57-year-old transgender male with history of type 2 diabetes, hypertension, hyperlipidemia, diabetic polyneuropathy, s/p right AKA and [facility]/unresponsiveness due to poor PO intake. Type of DM: 2 Onset of DM: 1991 Home DM Medication Regimen: U-500 insulin - 285 units before breakfast/260 units before lunch/285 units before dinner , Trulicity 4.5 mg weekly DM control (last A1c/glucose data): 7.7% on current admission Resides at the [place] Interim history: Patient was seen at bedside PO intake has been variable He wasn't hungry earlier but just ordered burger He had Ensure yesterday Had some upset stomach this AM and nausea No vomiting GFR improved today Estimated Creatinine Clearance (by C-G formula based on SCr of 0.98 mg/dL) Female: 93.9 mL/min Male: 113.7 mL/min The patient's sex/gender information is inconclusive; review their information before proceeding. Drinking fluids Glucose Date/Time Value Ref Range Status 10/12/2023 12:10 PM 304 (H) 70 - 100 mg/dL Final 10/12/2023 07:52 AM 411 (H) 70 - 100 mg/dL Final 10/12/2023 05:44 AM 387 (H) 70 - 100 mg/dL Final 10/11/2023 08:52 PM 401 (H) 70 - 100 mg/dL Final 10/11/2023 05:18 PM >450 (H) 70 - 100 mg/dL Final Comment: Caregiver Notified; 10/11/2023 04:53 PM >450 (H) 70 - 100 mg/dL Final Comment: Confirmation Drawn; Repeated Test; Review of Systems ROS negative except for those mentioned in HPI. OBJECTIVE: Vitals: 10/11/23 1121 10/11/23 1618 10/12/23 0530 10/12/23 0956 BP: (!) 152/80 (!) 179/91 (!) 147/77 BP Location: Right arm Left arm Left arm Patient Position: Lying Lying Lying Pulse: 86 79 80 Resp: 20 14 16 Temp: 36.5 C (97.7 F) 36.8 C (98.3 F) 36.1 C (97 F) TempSrc: Temporal Temporal Temporal SpO2: 96% 97% 97% Weight: Height: 5' 6" (1.676 m) Physical Exam Vitals and nursing note reviewed. Constitutional: Appearance: He is obese. HENT: Mouth/Throat: Mouth: Mucous membranes are dry. Eyes: Conjunctiva/sclera: Conjunctivae normal. Cardiovascular: Rate and Rhythm: Normal rate and regular rhythm. Heart sounds: Normal heart sounds. Pulmonary: Effort: Pulmonary effort is normal. Abdominal: General: There is distension. Palpations: Abdomen is soft. Musculoskeletal: General: Swelling and deformity present. Left lower leg: Edema present. Comments: Left lower extremity venous stasis changes noted Right AKA Skin: General: Skin is dry. Neurological: General: No focal deficit present. Mental Status: He is alert. Psychiatric: Attention and Perception: Attention normal. Mood and Affect: Affect is flat. Behavior: Behavior is slowed. 24 hour intake/output: Intake/Output Summary (Last 24 hours) at 10/12/2023 1510 Last data filed at 10/12/2023 0848 Gross per 24 hour Intake 2000 ml Output 1700 ml Net 300 ml Diet: Adult diet Regular; Isolation Tray (Disposables); 5 carb choices (75 gm/meal) Medications (as per EMR): HomeMeds: Current Outpatient Medications Medication Instructions acetaminophen (TYLENOL) 650 mg, Oral, Every 4 hours PRN ARIPiprazole (Abilify) 10 MG tablet Every 24 hours aspirin 81 MG EC tablet 1 tablet, Oral, Daily atorvastatin (Lipitor) 10 MG tablet 1 tablet, Oral, Daily bisacodyl (DULCOLAX) 5 mg, Oral, 2 times daily PRN, Do not crush, chew, or split. cinnamon 2,000 mg, Oral, Daily clotrimazole (Lotrimin) 1 % cream Topical, 2 times daily dilTIAZem CD (CARDIZEM CD) 180 mg, Oral, Daily dulaglutide (TRULICITY) 4.5 mg, SubCUTAneous, Weekly, Every FLUoxetine (PROZAC) 40 mg, Oral, Daily gabapentin (NEURONTIN) 100 mg, Oral, 2 times daily insulin regular (HumuLIN R U-500 KWIKPEN) 500 UNIT/ML CONCENTRATED injection SubCUTAneous, 3 times daily, 285 units before breakfast/260 units before lunch/285 units before dinner Lactobacillus Acid-Pectin (Acidophilus/Rosemead Pectin) tablet 1 tablet, Oral, 2 times daily lisinopril 40 MG tablet Every 24 hours Loratadine 10 MG capsule Oral magnesium hydroxide (Milk of Magnesia Concentrate) 2400 MG/10ML suspension suspension Every 24 hours megestrol (Megace) 20 MG tablet 1 tablet, Oral, 2 times daily melatonin 10 mg, Oral, Nightly PRN metoclopramide (REGLAN) 10 mg, Oral, 4 times daily metoprolol tartrate (Lopressor) 25 MG tablet 1 tablet, Oral, 2 times daily miconazole (Micotin) 2 % powder Topical, 2 times daily ondansetron (ZOFRAN) 4 mg, Oral, Every 6 hours PRN pantoprazole (PROTONIX) 40 mg, Oral polyethylene glycol (PEG) 3350 (GLYCOLAX) 17 g, Oral, Daily potassium chloride CR (K-Tab) 20 MEQ ER tablet Every 24 hours Scheduled Meds:ARIPiprazole, 10 mg, Oral, q24h aspirin, 81 mg, Oral, Daily atorvastatin, 10 mg, Oral, Nightly clotrimazole, , Topical, BID dilTIAZem CD, 180 mg, Oral, Daily [Held by provider] enoxaparin, 30 mg, SubCUTAneous, 2 times per day ertapenem, 1,000 mg, IntraVENous, q24h FLUoxetine, 40 mg, Oral, Daily gabapentin, 100 mg, Oral, BID heparin flush, 250 Units, IntraCATHeter, q12h insulin lispro, 0-18 Units, SubCUTAneous, TID WC insulin lispro, 30 Units, SubCUTAneous, TID WC insulin NPH, 70 Units, SubCUTAneous, BID [Held by provider] lisinopril, 40 mg, Oral, Daily megestrol, 20 mg, Oral, BID melatonin, 10 mg, Oral, Nightly metoprolol tartrate, 25 mg, Oral, BID pantoprazole, 40 mg, Oral, qAM AC polyethylene glycol (PEG) 3350, 17 g, Oral, Daily sodium chloride 0.9%, 10 mL, IntraCATHeter, q12h Continuous Infusions: PRN Meds:PRN medications: acetaminophen, dextrose, dextrose, glucagon (rDNA), glucose, heparin flush, labetalol, ondansetron, polyethylene glycol (PEG) 3350, prochlorperazine, sodium chloride 0.9% Diagnostic Workup: I reviewed pertinent Laboratory results, Radiographic results, and Other Clinical Notes at the time of today's encounter. Labs: No components found for: LABA1C No components found for: "EAG" Lab Results Component Value Date NA 131 (L) 10/12/2023 K 4.5 10/12/2023 CL 97 (L) 10/12/2023 CO2 24 10/12/2023 BUN 25 10/12/2023 CREATININE 0.98 10/12/2023 GLUCOSE 401 (H) 10/12/2023 CALCIUM 9.4 10/12/2023 Lab Results Component Value Date CHLPL 125 08/29/2020 Lab Results Component Value Date TRIG 190 08/29/2020 Lab Results Component Value Date HDL 31 (A) 08/29/2020 Lab Results Component Value Date LDLCALC 56 08/29/2020 Lab Results Component Value Date VLDL 38 08/29/2020 No results found for: CHOLHDLRATIO No results found for: [id number] Lab Results Component Value Date TSH 2.356 11/26/2020 Radiology reportsas per the Radiologist Radiology: CT abdomen pelvis w contrast Result Date: 10/08/2023 Patient Name: WILL JACINTO : 1965 Exam Date/Time: 10/08/2023 09:36 Procedure: CT ABDOMEN PELVIS W CONTRAST Ordering Provider: ROBERTSON MEREDITH Reason For Exam: Nausea/vomiting CT ABDOMEN AND PELVIS WITH CONTRAST CLINICAL INDICATION: Nausea and vomiting. TECHNIQUE: Multi-axial 3mm sections through the abdomen and pelvis following 75 mL of Isoview contrast media. No oral contrast was administered. Coronal and sagittal reconstructions were reviewed. Dose reduction was employed with automated exposure control. COMPARISON: 08/17/2023. FINDINGS: Lower thorax: Patchy opacities in the right lung base. Otherwise unremarkable. Stomach: Unremarkable. Liver: Normal size and contours. The liver demonstrates generalized diminished attenuation as compared to the spleen, compatible with hepatic steatosis. No focal lesion. Biliary tree: Hyperdensity within the gallbladder lumen, suggestive of sludge and/or cholelithiasis. No pericholecystic inflammatory change by CT. No biliary dilatation. Spleen: Normal. Adrenals: Normal. Pancreas: Normal. Kidneys: Symmetric contrast enhancement without evidence of hydronephrosis. No focal renal lesion is identified. Free air or fluid: None. Mesenteric/retroperitoneal: No adenopathy or inflammation. Aorta: Normal caliber of aorta and bilateral common iliac arteries. Bowel: No inflammatory changes in the right lower quadrant. No inflammatory change or bowel dilatation is noted. Urinary bladder: Unremarkable. Abdominal wall/soft tissues: No ventral hernia is evident. Pelvic organs/viscera: The uterus is present. Inguinal: No lymphadenopathy. Osseous structures: Advanced multilevel thoracolumbar spine degenerative changes including DISH. Advanced bilateral hip osteoarthritis. 1. No evidence of acute infectious or inflammatory process in the abdomen or pelvis. 2. The liver demonstrates generalized diminished attenuation as compared to the spleen, compatible with hepatic steatosis. 3. Hyperdensity within the gallbladder lumen, suggestive of sludge and/or cholelithiasis; consider right upper quadrant ultrasound. 4. Patchy opacities in the right lung base. Report Dictated on Electronically Signed By: Bao Hill MD Electronically Signed Date/Time: 10/08/2023 10:23 AM EST XR chest 1 view Result Date: 10/07/2023 Patient Name: WILL JACINTO : 1965 Exam Date/Time: 10/07/2023 07:31 Procedure: XR CHEST 1 VIEW Ordering Provider: MUSTAFA KATHRYN Reason For Exam: altered, hypoglyc CHEST (Frontal View) History: Hypoglycemia, change in mental status Comparison: 08/08/2023 Findings: Frontal chest view shows diminished lung volume with interstitial prominence and small linear basilar atelectasis without acute infiltrate or overt congestion. The heart is normal in size. There is no mediastinal widening, sizable pleural effusion, or other significant change from last exam. There is spondylosis. Chronic findings. No appreciable acute pulmonary process. Report Dictated on Electronically Signed By: Angel Randhawa MD Electronically Signed Date/Time: 10/07/2023 7:[address] head wo IV contrast Result Date: 10/07/2023 Patient Name: WILL JACINTO : 1965 [facility]#: [id number] Exam Date/Time: 10/07/2023 07:29 Procedure: CT HEAD WO IV CONTRAST Ordering Provider: MUSTAFA KATHRYN Reason For Exam: AMS UNENHANCED HEAD CT History: Change in mental status Comparison: None available Technique: Multislice axial CT sections obtained from the base to the vertex of the brain without IV contrast enhancement. Multiplanar sagittal and coronal reconstructed images also obtained. Dose reduction employed with automated exposure control. Findings: There is mild parenchymal loss with prominent cortical sulci and fissures, not unusual for age. The ventricles are normal in size for age. There is no intracranial hemorrhage, midline shift, or other mass effect in the brain. The exam is limited without contrast enhancement. There are mild carotid siphon calcifications. The paranasal sinuses and bilateral mastoid air cells are clear. There is spondylosis with prominent calcific/ossific densities at the cervical cranial and C1-C2 junction that are not adequately visualized for proper evaluation. Mild parenchymal volume loss. No evidence of acute intracranial process. 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 other toe(s), unspecified side (HCC) Anxiety disorder Bipolar 1 disorder (HCC) Blood circulation, collateral Cellulitis chronic L lower leg COVID 12/08/2021 Depression Diabetes mellitus (HCC) Type II, on insulin Disease of blood and blood forming organ Endometrial carcinoma (HCC) 11/25/2020 Endometrial hyperplasia Foot ulcer (HCC) Hx of blood clots RLE prior to amputation Hyperlipidemia Hypertension Lymphedema 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; no specimens WISDOM TOOTH EXTRACTION Allergy(ies): No Known Allergies Family History: Family History Problem Relation Name Age of Onset No Known Problems Mother No Known Problems Father Social History: Social History Tobacco Use Smoking status: Never Smokeless tobacco: Never Vaping Use Vaping Use: Never used Substance Use Topics Alcohol use: No Drug use: Never Portions of the information within this encounter were entered using an electronic dictation system. Best attempts were made to edit/proofread the information prior to note completion. Despite the review of information, some errors may remain. If there are questions related to the information contained within the note please contact the signing physician directly. I spent 35 minutes with the pt which involved coordination of care, medical evaluation, review of records, and/or counseling of the pt regarding his/her condition/disease state/prognosis on the date of this note. Images from the original note were not included. [facility] - Infectious Diseases Attending Progress Note Subjective- Following for BSI d/t Acinetobacter lwoffii. Pt resting comfortably in bed. States that abdominal pain has improved. Tolerating regular diet. Denies F/C. PICC line has been placed. Interval Events- Pt is afebrile. WBC WNL at 7.4. Hyperglycemic today at 401. Planning to complete IV course w/ ertapenem via PICC. [facility] medically [facility]. Objective- Vitals- Patient Vitals for the past 24 hrs: BP Temp Temp src Pulse Resp SpO2 10/12/23 0956 (!) 147/77 36.1 C (97 F) Temporal 80 16 97 % 10/12/23 0530 (!) 179/91 36.8 C (98.3 F) Temporal 79 14 97 % 10/11/23 1618 (!) 152/80 36.5 C (97.7 F) Temporal 86 20 96 % Physical Exam Constitutional: General: He is not in acute distress. Appearance: Normal appearance. He is normal weight. He is ill-appearing. He is not toxic-appearing or diaphoretic. HENT: Head: Normocephalic and atraumatic. Nose: Nose normal. Mouth/Throat: Mouth: Mucous membranes are moist. Pharynx: Oropharynx is clear. No oropharyngeal exudate or posterior oropharyngeal erythema. Eyes: General: No scleral icterus. Extraocular Movements: Extraocular movements intact. Pupils: Pupils are equal, round, and reactive to light. Cardiovascular: Rate and Rhythm: Normal rate and regular rhythm. Pulses: Normal pulses. Heart sounds: Normal heart sounds. No murmur heard. No friction rub. No gallop. Pulmonary: Effort: Pulmonary effort is normal. No respiratory distress. Breath sounds: Normal breath sounds. No wheezing, rhonchi or rales. Abdominal: General: Abdomen is flat. There is no distension. Palpations: There is no mass. Tenderness: There is no abdominal tenderness. Musculoskeletal: General: No swelling or deformity. Normal range of motion. Right lower leg: No edema. Left lower leg: No edema. Comments: RUE PICC in place Skin: General: Skin is warm and dry. Coloration: Skin is not pale. Findings: No erythema, lesion or rash. Neurological: Mental Status: He is alert. Labs- Lab Results Component Value Date/Time NA 131 (L) 10/12/2023 0402 K 4.5 10/12/2023 0402 CL 97 (L) 10/12/2023 0402 CO2 24 10/12/2023 0402 CO2 23 02/09/2023 1022 BUN 25 10/12/2023 0402 BUN 26 (H) 02/09/2023 1022 CREATININE 0.98 10/12/2023 0402 CREATININE 0.86 02/09/2023 1022 GLUCOSE 401 (H) 10/12/2023 0402 GLUCOSE 433 (H) 02/09/2023 1022 CALCIUM 9.4 10/12/2023 0402 CALCIUM 9.2 02/09/2023 1022 PROT 6.5 10/11/2023 0355 PROT 6.4 02/09/2023 1022 BILITOT 0.7 10/11/2023 0355 BILITOT 0.3 02/09/2023 1022 ALKPHOS 143 (H) 10/11/2023 0355 ALKPHOS 178 (H) 02/09/2023 1022 AST 20 10/11/2023 0355 AST 16 02/09/2023 1022 ALT 28 10/11/2023 0355 ALT 29 02/09/2023 1022 PROCAL 0.83 (H) 10/07/2023 1803 Lab Results Component Value Date/Time WBC 7.4 10/12/2023 0402 HGB 12.4 10/12/2023 0402 HCT 37.5 10/12/2023 0402 PLT 355 10/12/2023 0402 GRANULOCYTES 73.2 12/08/2020 1558 LYMPHOPCT 26.5 10/08/2023 0307 MONOPCT 7.3 10/08/2023 0307 LABEOS 1.0 12/08/2020 1558 BASOPCT 0.8 10/08/2023 0307 NEUTROABS 6.5 10/08/2023 0307 Micro- 10/07 Blood CX ID (-) 10/07 Blood CX 1/2 (+) for Acinetobacter lwoffii 10/07 Respiratory Pathogens Panel by PCR (-) 10/07 Urine CX NGTD 10/08 MRSA by PCR (+) for MRSA 10/09 Blood CX x2 NGTD Lines/Drains/Airways- 10/11 RUE PIV Radiography/Echo/Other- 10/07 CTH w/o IV contrast Mild parenchymal volume loss. No acute intracranial process. Spondylosis w/ calcific/ossific densities at cranial cervical and C1-C2 junction not adequately visualized for proper evaluation. 10/07 CXR 1V Diminished lung volume w/ interstitial prominence and small linear basilar atelectasis w/o acute infiltrate or overt congestion. Heart normal in size. No mediastinal widening, sizable pleural effusion, or other significant change from last exam. There is spondylosis. No acute pulmonary process. 10/08 CT a/p w/ contrast No evidence of acute infectious or inflammatory process in abdomen or pelvis. The liver demonstrates generalized diminished attenuation as compared to the spleen, compatible with hepatic steatosis. Hyperdensity within gallbladder lumen, suggestive of sludge and/or cholelithiasis. Patchy opacities in R lung base. 10/08 US abdomen limited Gallstones. No definite acute biliary process. Limited due to body habitus and bowel gas. 10/12 CXR 1V No acute process. S/p L-sided CVC placement. No PNX. Antimicrobials, Start/End Dates- 10/07-10/08 vancomycin 10/07-10/10 piperacillin/tazobactam 10/10-10/12 ampicillin/sulbactam 10/12- ertapenem History of Present Illness- Maria Luisa Jacinto is a 57 y/o transgender M (pronouns he/him) w/ PMH of RLE OM s/p RLE AKA, ID-T2DM, gastroparesis, JOHN (not on CPAP), h/o recurrent cellulitis of LLE, h/o endometrial CA, HTN, HLD, lymphedema, venous insufficiency, schizophrenia, bipolar 1 disorder, anxiety, depression. Presented to ED 10/07 d/t AMS, hypoglycemia. POC glucose was 36; given glucagon x2. ED w/u showed T91.4F, WBC 13.3. Armando Hugger was placed and D50 given. Blood CXs 10/07 are 1/2 (+) for Acinetobacter lwoffii. The ID service is following for BSI due to Acinetobacter lwoffii. Impression- Bloodstream infection due to Acinetobacter lwoffii Presented w/ hypoglycemia + AMS; found to have hypothermia + leukocytosis Blood CXs from 10/07 were 1/2 (+) for A lwoffii Source unclear at this time; CT a/p showed no acute process On IV ertapenem Plan is for 14d course, end date 10/21 Gallstones w/o acute biliary process H/o RLE OM d/t MRSA, CRE s/p RLE AKA Type II diabetes mellitus- insulin-dependent; c/b gastroparesis Obstructive sleep apnea- not on CPAP H/o recurrent cellulitis of LLE H/o endometrial CA Hypertension Hyperlipidemia Lymphedema Venous insufficiency Schizophrenia Bipolar 1 disorder Anxiety Depression Plan- D/c IV ampicillin/sulbactam; start ertapenem in anticipation of d/c Will plan to treat for 2 weeks total, planned end date 10/21 OPAT form created; will be scanned into pt chart under media tab Favor completing full course w/ IV therapy; would avoid FQ due to ongoing hypo- and hyperglycemia issues No opposition to d/c from ID standpoint once medically stable The ID service will continue to follow. Based on diagnoses and management, combination of acute and chronic problems, exacerbations and/or acuity, this visit should be considered to be of moderate complexity. Mukul Coreas DO [facility] [place] Infectious Diseases Office Tel. [phone] Images from the original note were not included. Hospitalist Progress Note 10/12/2023 [id number]: Please page [facility] night Hospitalist for any issues. Admit Date: 10/07/2023 PCP: Jared Guzman Room#: [id number] Brief hospital course: Patient admitted 10/07/2023 for hypoglycemia 2/2 insulin use with poor PO intake, hypothermia, ?sepsis. 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 Initially presented from [facility] with hypoglycemia and unresponsiveness, POC glucose 36. Had been having poor PO intake 4-5 days d/t N/V and insulin had not been adjusted. On presentation he was hypothermic (91 F); mentation had not initially improved s/p resolution of hypoglycemia, but once warming was underway mentation was returning to baseline. Found to have blood cultures (+)Acinetobacter lwoffi (kelley-sens), and given (+)SIRS on presentation he likely did have sepsis POA. Subjective: Interval History: No overnight issues. PICC team setting-up on arrival to room. No concerns at this time, has had PICC previously and understands the procedure and what it is for. Adult diet Regular; Isolation Tray (Disposables); 5 carb choices (75 gm/meal) 24HR INTAKE/OUTPUT: Intake/Output Summary (Last 24 hours) at 10/12/2023 0808 Last data filed at 10/11/2023 1900 Gross per 24 hour Intake 2000 ml Output 700 ml Net 1300 ml 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 other toe(s), unspecified side ([facility]) Anxiety disorder Bipolar 1 disorder ([facility]) Blood circulation, collateral Cellulitis chronic L lower leg COVID 12/08/2021 Depression Diabetes mellitus ([facility]) Type II, on insulin Disease of blood and blood forming organ Endometrial carcinoma ([facility]) 11/25/2020 Endometrial hyperplasia Foot ulcer ([facility]) Hx of blood clots RLE prior to amputation Hyperlipidemia Hypertension Lymphedema 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, RLE Morbidly obese ([facility]) Muscle weakness Osteomyelitis ([facility]) Osteomyelitis ([facility]) 2019 RLE Other lack of coordination Other specified soft tissue disorders Other symbolic dysfunctions Schizophrenia ([facility]) Sleep apnea no CPAP Venous insufficiency Objective: Vitals: BP (!) 179/91 (BP Location: Left arm, Patient Position: Lying) Pulse 79 Temp 36.8 C (98.3 F) (Temporal) Resp 14 Ht 5' 6" (1.676 m) Wt (!) 316 lb (143 kg) SpO2 97% BMI 51.00 kg/m Pulse Ox: SpO2 Av.3 % Min: 96 % Max: 97 % General appearance: Obese. NAD. Cooperative with exam. Respiratory: CTAB. Normal effort. Cardiovascular: RRR. No M/R/G. Musculoskeletal: R-AKA. Integument: LLE anterior francisco visually unchanged. Neurologic: Alert. Answering questions & following directions appropriately. Labs/Studies: The following labs and/or studies were reviewed by me as part of today's encounter. HEME: Recent Labs 10/11/23 0355 10/12/23 0402 WBC 9.4 7.4 RBC 3.82 4.40 HGB 10.9* 12.4 HCT 32.1 37.5 MCV 84.2 85.1 RDW 14.8* 14.8* PLT 347 355 CHEM: Recent Labs 10/09/23 0903 10/10/23 0227 10/11/23 0355 10/11/23 1803 10/12/23 0402 NA 130* -- 128* -- 131* K 4.5 -- 4.2 -- 4.5 CL 98 -- 95* -- 97* CO2 23 -- 22 -- 24 BUN 23 -- 28 -- 25 CREATININE 0.76 -- 1.30 -- 0.98 EGFR >90.0 -- 48.4* -- 67.9 GLUCOSE 344* < > 397* 522* 401* CALCIUM 8.7 -- 8.7 -- 9.4 ANIONGAP 9 -- 12 -- 10 < > = values in this interval not displayed. Recent Labs 10/11/23 0355 MG 1.3* ALBUMIN 3.8 (MG, CRP, SEDRATE, and CKTOTAL are separate not part of a panel; PHOS may be separate or part of a RENAL panel) LIVER: Recent Labs 10/11/23 0355 AST 20 ALT 28 BILITOT 0.7 ALKPHOS 143* ALBUMIN 3.8 PROT 6.5 (on any date where BILIDIR is present then there is a full hepatic panel, not a CMP; lipase & GGT are separate labs not part of a panel) COAG: No results for input(s): "PROTIME", "INR", "PTT" in the last 72 hours. CARDIAC: No results for input(s): "TROPONINI" in the last 72 hours. NT PRO BNP Date Value Ref Range Status 06/28/2023 150 <20 - 300 pg/mL Final Recent Labs 10/11/23 1650 10/11/23 1653 10/11/23 1718 10/11/23 2052 10/12/23 0544 10/12/23 0752 POCGLU >450* >450* >450* 401* 387* 411* No results for input(s): "LACTATE" in the last 72 hours. No results found for: "DDIMER", "PROCAL", "COVID19", "HGBA1C", "TSH", "VXAOEHIF29", "FOLATE", "VITD25", "CHOL", "TRIG", "HDL", LDLCALC Urine Culture: Results for orders placed or performed during the hospital encounter of 10/07/23 Urine culture Specimen: Urine, Clean Catch Result Value Ref Range Urine Culture No growth (<1,000 CFU/mL) Blood Culture: Results for orders placed or performed during the hospital encounter of 10/07/23 Blood culture Site #2 - Assess for effectiveness of treatment Specimen: Blood, Venous Result Value Ref Range Blood Culture No growth at 48 hours Blood culture Site #1 - Assess for effectiveness of treatment Specimen: Blood, Venous Result Value Ref Range Blood Culture No growth at 48 hours Currently Ordered Medications: Current Facility-Administered Medications: acetaminophen (Tylenol) tablet 650 mg, 650 mg, Oral, q4h PRN, JEREMY Liao CNP, 650 mg at 10/08/23 0554 ampicillin-sulbactam (Unasyn) 3,000 mg in sodium chloride 0.9 % 100 mL IVPB (Add-[place]), 3,000 mg, IntraVENous, q6h, Skylar Larkin PA-C, Stopped at 10/12/23 0424 ARIPiprazole (Abilify) tablet 10 mg, 10 mg, Oral, q24h, JEREMY Liao CNP, 10 mg at 10/11/23 1556 aspirin EC tablet 81 mg, 81 mg, Oral, Daily, JEREMY Liao CNP, 81 mg at 10/11/23 0941 atorvastatin (Lipitor) tablet 10 mg, 10 mg, Oral, Nightly, JEREMY Liao CNP, 10 mg at 10/11/23 2019 clotrimazole (Lotrimin) 1 % cream, , Topical, BID, JEREMY Liao CNP, Given at 10/11/23 212 dextrose 5 % infusion, 100 mL/hr, IntraVENous, PRN, JEREMY Liao CNP, Stopped at 10/10/23 0552 dextrose 50 % solution 12.5 g, 12.5 g, IntraVENous, PRN, JEREMY Liao CNP dilTIAZem CD (Cardizem CD) 24 hr capsule 180 mg, 180 mg, Oral, Daily, JEREMY Liao CNP, 180 mg at 10/11/23 09 enoxaparin (Lovenox) syringe 30 mg, 30 mg, SubCUTAneous, 2 times per day, Rachael Robertson APRN - [employer], 30 mg at 10/11/232018 FLUoxetine (PROzac) capsule 40 mg, 40 mg, Oral, Daily, Rachael Robertsno APRN - [employer], 40 mg at 10/11/23 09 gabapentin (Neurontin) capsule 100 mg, 100 mg, Oral, BID, Rachael Robertson APRN - [employer], 100 mg at 10/11/232018 glucagon (human recombinant) injection 1 mg, 1 mg, IntraMUSCular, PRN, JEREMY Laio CNP glucose oral gel 15 g, 15 g, Oral, PRN, Rachael Robertson APRN - [employer], 15 g at 10/10/23 0216 Insulin Lispro (Humalog) injection 0-18 Units, 0-18 Units, SubCUTAneous, TID , Amrita Garcia MD Insulin Lispro (Humalog) injection 25 Units, 25 Units, SubCUTAneous, TID , Amrita Garcia MD, 25 Units at 10/11/23 1740 insulin NPH (Isophane) (HumuLIN N,NovoLIN N) injection 40 Units, 40 Units, SubCUTAneous, BID, Amrita Garcia MD, 40 Units at 10/11/235 labetalol (Normodyne,Trandate) injection 20 mg, 20 mg, IntraVENous, q6h PRN, Ricardo Spring MD, 20 mg at 10/12/23 0555 [Held by provider] lisinopril tablet 40 mg, 40 mg, Oral, Daily, Mayda Olmstead MD, 40 mg at 10/11/23 0942 megestrol (Megace) tablet 20 mg, 20 mg, Oral, BID, aRchael Robertson APRN - KRANTHI, 20 mg at 10/11/23 2331 melatonin tablet 10 mg, 10 mg, Oral, Nightly, Rachael Robertson APRN - KRANTHI, 10 mg at 10/11/232018 metoprolol tartrate (Lopressor) tablet 25 mg, 25 mg, Oral, BID, Rachael Robertson APRN - [employer], 25 mg at 10/11/232018 ondansetron (Zofran) tablet 4 mg, 4 mg, Oral, q6h PRN, Rachael Robertson APRN - [employer], 4 mg at 10/11/232041 pantoprazole (ProtoNix) EC tablet 40 mg, 40 mg, Oral, qAM AC, Rachael Robertson APRN - [employer], 40 mg at 10/12/23 0550 polyethylene glycol (PEG) 3350 (Miralax) packet 17 g, 17 g, Oral, Daily PRN, Rachael Robertson PERSONAL CARE SERVICE PROVIDER - [employer] polyethylene glycol (PEG) 3350 (Miralax) packet 17 g, 17 g, Oral, Daily, Rachael Robertson APRN - [employer], 17 g at 10/08/23 1042 prochlorperazine (Compazine) injection 5 mg, 5 mg, IntraVENous, q6h PRN, Mayda Olmstead MD, 5 mg at 10/11/23 0024 Medical Decision Making: Acute, acute on chronic, unstable/uncontrolled chronic problems: Acinetobacter lwoffi bacteremia Sepsis POA Unsure of source IDDM2 ("brittle") with hyperglycemia & hypoglycemia, polyneuropathy NOY, resolving Hyponatremia, mild, improved Hypomagnesemia, mild, repleted N/V with known gastroparesis, sx nearly fully resolved LLE erythema, previously eval'd and deemed unlikely to be cellulitis Stable chronic problems affecting care, new non-acute diagnoses: Class III morbid obesity JOHN no CPAP (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 --> secure chat with tonie Grullon to place the order for placement today - endocrinology following, appreciate recs - pausing U-500 to temporarily use NPH + lispro - glucose requires close monitoring d/t risk of recurrent hypoglycemia given the high doses of insulin being used on top of the current NOY & known lability (glucose 45 yesterday morning, >450 today) - holding ACEi - anticipate BP to run high today because of this, okay for the moment - potentially restart tomorrow if renal function supportive of this - PT/OT/CM/SW - delirium precautions: increase activity - DVT prophylaxis: enoxaparin and encourage ambulation Data: (CAT1) Reviewed 1 notes from different specialty or health system (each=1). (CAT1) Reviewed 3 or more labs/studies previously ordered by me not previously counted (each=1, panels count as 1). (CAT3) Mgmt of the patient was discussed with Dr. Coreas, who stated, in summary: (see above) (Note: labs/studies can only be counted once--either when ordered or when reviewed--not both.) Advance Directive: Full Code Anticipated Discharge - Date - 1-2 days - Location - Skilled Facility - Pending the following - PICC, OPAT, endocrine recs [facility]io Armando [facility] [place]: Extensive (Two out of three: 3x CAT1, 1x CAT2, 1x CAT3) Complexity: Acute illness or injury posing a threat to life or body function (HIGH). Risk: Prescription drug/IVF/colloid was initiated, discontinued, adjusted; or reviewed with decision to maintain current orders (MOD). Use/consideration of a therapy requiring intensive monitoring (HIGH). Estimated MDM: High (17425/04493) Note: the above MDM determinations are made by me for my own use to estimate my end-of-day billing codes. However, documentation is reviewed by professional coders; following their review of documentation, and in accordance with current AMA CPT, CMS, and ACDIS guidelines, the actual billing code(s) may differ from my estimate. Nutrition Assessment Type and Reason for Visit: Initial (DT referral for poor po intake) Nutrition Recommendations/Plan: Continue with Carb Control (5) diet at this time Per MNT protocol provide Ensure HP (vanilla) between meals and HS. Encouraged patient to consume 3 small meals in addition to 3 Ensure HP per day. Suggest document po intake in nursing flow sheets RD continue to monitor overall nutritional status and follow up weekly Malnutrition Assessment: Malnutrition Status: At risk for malnutrition (Comment) (patient at risk due to consistent nausea 2/2 gastroparesis) Context: Acute Illness Findings of the 6 clinical characteristics of malnutrition: Energy Intake: 50% or less of estimated energy requirements for 5 or more days Weight Loss: No significant weight loss (5.7% in 6 months) Body Fat Loss: No significant body fat loss Muscle Mass Loss: No significant muscle mass loss Fluid Accumulation: No significant fluid accumulation Quality Control Inspector Heading Strength: Not Performed Nutrition Assessment: Patient is a 57-year-old transgender male with history of type 2 diabetes, hypertension, hyperlipidemia, diabetic polyneuropathy, s/p right AKA and [facility]responsiveness. Per notes patient has had poor p.o. intake for the last 4 days in addition to nausea and vomiting. However it appears that he was noted to be unresponsive and was found to have a blood glucose of 36 in the [facility]. Patient had received 260 units of U-500 with lunch and 285 units with dinner , but did not eat much of dinner and was found to be unresponsive and diaphoretic at 4:45 in the morning. Endocrinology consulted and following. Insulin continues to be adjusted now that diet advanced to Carb Control (5). HgbA1c checked (7.7% on 10/09/23). ID following patient for Acinetobacter bacteremia from unknown source. Urine Cx NG. No open wounds or resp complaints. He does have Hx N/V + gallstones without acute biliary process. ? Possible GI in origin, but no obvious signs infection on CT abd/pelvis.. Patient sitting up in bed eating lunch during RD visit. Reports this is the first day he is eating pretty well. Did have breakfast yesterday however not much after. Stated he was drinking "health shakes" at prison [employer]. Patient requesting to have Ensure HP 3x/day. Will send between meals and for HS snack. Discussed patient consuming small meals (3x/day) with Ensure HP between meals and HS to promote tolerance. Patient reports unsure of weight loss however stated "it feels like I lost weight". RD unable to obtain bed scale weight. Review of epic weights, patient weighed 335# (03/17/23) via Deedee scale with an admit weight of 316# via bed scale. This is a 5.7% weight loss in 6 months. Other weights reviewed however they are stated or no method indicated. Estimated Daily Nutrient Needs: Energy Requirements Based On: Kcal/kg Weight Used for Energy Requirements: Adjusted Weight for Energy Calculation (kg): 53 kg Total Energy Requirements (kcals/day): 9428-6473 (30-35) Weight Used for Protein Requirements: Adjusted Weight in Kg Used for Protein Requirements: 53 kg Estimated Total Protein (g/day): 53-69 (1.0-1.3) Estimated Daily Total Fluid (ml/day): per MD Nutrition Related Findings: +bowel sounds; nausea; BM /; -I&O; HgbA1c 7.7% (10/09/23) Wound Type: None BMP: Recent Labs 10/09/23 0903 10/10/23 0227 10/11/23 0355 NA 130* -- 128* K 4.5 -- 4.2 CL 98 -- 95* CO2 23 -- 22 BUN 23 -- 28 CREATININE 0.76 -- 1.30 GLUCOSE 344* 45* 397* CALCIUM 8.7 -- 8.7 MG -- -- 1.3* HEPATIC: Recent Labs 10/11/23 0355 AST 20 ALT 28 BILITOT 0.7 ALKPHOS 143* Glucose Date Value Ref Range Status 10/11/2023 354 (H) 70 - 100 mg/dL Final 10/11/2023 386 (H) 70 - 100 mg/dL Final 10/10/2023 404 (H) 70 - 100 mg/dL Final 10/10/2023 405 (H) 70 - 100 mg/dL Final 10/10/2023 353 (H) 70 - 100 mg/dL Final 10/10/2023 253 (H) 70 - 100 mg/dL Final HgbA1c: 7.7% (10/09/23) Scheduled Meds: ampicillin-sulbactam, 3,000 mg, IntraVENous, q6h ARIPiprazole, 10 mg, Oral, q24h aspirin, 81 mg, Oral, Daily atorvastatin, 10 mg, Oral, Nightly clotrimazole, , Topical, BID dilTIAZem CD, 180 mg, Oral, Daily enoxaparin, 30 mg, SubCUTAneous, 2 times per day FLUoxetine, 40 mg, Oral, Daily gabapentin, 100 mg, Oral, BID influenza, 0.5 mL, IntraMUSCular, Once insulin lispro, 0-12 Units, SubCUTAneous, TID WC insulin lispro, 25 Units, SubCUTAneous, TID WC insulin NPH, 40 Units, SubCUTAneous, BID lisinopril, 40 mg, Oral, Daily magnesium sulfate, 2,000 mg, IntraVENous, BID megestrol, 20 mg, Oral, BID melatonin, 10 mg, Oral, Nightly metoprolol tartrate, 25 mg, Oral, BID pantoprazole, 40 mg, Oral, qAM AC polyethylene glycol (PEG) 3350, 17 g, Oral, Daily Current Nutrition Therapies: Adult diet Regular; Isolation Tray (Disposables); 5 carb choices (75 gm/meal) Current Oral Intake Average Meal Intake: 51-75% (lunch) Average Supplements Intake: None Ordered Anthropometric Measures: Height: 167.6 cm (5' 6") Admission Body Weight: 143 kg (316 lb) (bed scale) Usual Body Weight: 152 kg (335 lb) (03/08/23 Deedee scale) [place] Body Weight (lbs) (Calculated): 130 lbs [place] Body Weight (Kg) (Calculated): 59 kg Weight Adjustment For: Amputation % Weight Adjustment: 10.1 - AKA Total Adjusted Percentage (Calculated): 10.1 Adjusted [place] Body Weight (lbs) (Calculated): 116.9 lbs Adjusted [place] Body Weight (kg) (Calculated): 53.14 kg BMI Categories: Obese Class 3 (BMI 40.0 or greater) Wt Readings from Last 5 Encounters: 10/07/23 (!) 143 kg (316 lb) Bed Scale 08/17/23 (!) 154 kg (339 lb) Stated ED visit 08/08/23 (!) 154 kg (339 lb) unknown 07/01/23 (!) 150 kg (329 lb 9.6 oz) unknown 03/08/23 (!) 152 kg (335 lb) Deedee scale Nutrition Diagnosis: Altered nutrition-related lab values related to endocrine dysfuntion as evidenced by lab values Predicted inadequate energy intake related to altered GI function, endocrine dysfuntion as evidenced by poor intake prior to admission, weight loss (6.8% in 7 weeks) Nutrition Interventions: Nutrition Education/Counseling: No recommendation at this time Coordination of Nutrition Care: Continue to monitor while inpatient Goals: Goals: PO intake 75% or greater, by next RD assessment Nutrition Monitoring and Evaluation: Behavioral-Environmental Outcomes: None Identified Food/Nutrient Intake Outcomes: Food and Nutrient Intake, Supplement Intake Physical Signs/Symptoms Outcomes: Biochemical Data, GI Status, Fluid Status or Edema, Hemodynamic Status, Skin, Weight Discharge Planning: Continue current diet Marcela Escamilla, MS KAYLA LD Contact: Abeelo armani or *[phone] Images from the original note were not included. [facility] - Infectious Diseases Attending Progress Note Subjective- Following for BSI d/t Acinetobacter lwoffii. Pt sitting upright in bed. Reports ongoing nausea and lower abdominal pain. Requests anti-emetic medication. Reports that pain is located in the lower portion of the abdomen. Has been able to drink some water w/o difficulty. Denies F/C. Interval Events- Temp remains intermittently low at 96.3F. WBC WNL. Hyperglycemic today at 397. Remains on IV ampicillin/sulbactam. [facility] medically [facility]. Objective- Vitals- Patient Vitals for the past 24 hrs: BP Temp Temp src Pulse Resp SpO2 10/11/23 1012 124/75 36.6 C (97.8 F) Temporal 92 18 96 % 10/11/23 0705 121/69 (!) 35.7 C (96.3 F) Temporal 92 22 95 % 10/11/23 0326 (!) 151/71 -- -- 89 -- -- 10/11/23 0244 101/73 36.3 C (97.4 F) Temporal 92 22 98 % 10/11/23 0037 (!) 149/98 -- -- -- -- -- 10/10/23 2338 (!) 188/95 -- -- 101 -- 95 % 10/10/23 2334 (!) 204/87 -- -- 101 -- 96 % 10/10/23 2312 (!) 196/111 -- -- 101 -- 96 % 10/10/23 2041 (!) 192/102 36.4 C (97.6 F) Temporal 99 22 95 % 10/10/23 1716 (!) 193/90 36.7 C (98 F) Temporal 102 18 95 % 10/10/23 1341 125/70 37.2 C (99 F) Temporal 90 20 96 % Physical Exam Constitutional: General: He is not in acute distress. Appearance: Normal appearance. He is normal weight. He is ill-appearing. He is not toxic-appearing or diaphoretic. HENT: Head: Normocephalic and atraumatic. Nose: Nose normal. Mouth/Throat: Mouth: Mucous membranes are moist. Pharynx: Oropharynx is clear. No oropharyngeal exudate or posterior oropharyngeal erythema. Eyes: General: No scleral icterus. Extraocular Movements: Extraocular movements intact. Pupils: Pupils are equal, round, and reactive to light. Cardiovascular: Rate and Rhythm: Normal rate and regular rhythm. Pulses: Normal pulses. Heart sounds: Normal heart sounds. No murmur heard. No friction rub. No gallop. Pulmonary: Effort: Pulmonary effort is normal. No respiratory distress. Breath sounds: Normal breath sounds. No wheezing, rhonchi or rales. Abdominal: General: Abdomen is flat. Tenderness: There is abdominal tenderness. Comments: Tenderness in lower portion of abdomen Musculoskeletal: General: No swelling or deformity. Normal range of motion. Right lower leg: No edema. Left lower leg: No edema. Skin: General: Skin is warm and dry. Coloration: Skin is not pale. Findings: No erythema, lesion or rash. Neurological: Mental Status: He is alert. Labs- Lab Results Component Value Date/Time NA 128 (L) 10/11/2023 0355 K 4.2 10/11/2023 0355 CL 95 (L) 10/11/2023 0355 CO2 22 10/11/2023 0355 CO2 23 02/09/2023 1022 BUN 28 10/11/2023 0355 BUN 26 (H) 02/09/2023 1022 CREATININE 1.30 10/11/2023 0355 CREATININE 0.86 02/09/2023 1022 GLUCOSE 397 (H) 10/11/2023 0355 GLUCOSE 433 (H) 02/09/2023 1022 CALCIUM 8.7 10/11/2023 0355 CALCIUM 9.2 02/09/2023 1022 PROT 6.5 10/11/2023 0355 PROT 6.4 02/09/2023 1022 BILITOT 0.7 10/11/2023 0355 BILITOT 0.3 02/09/2023 1022 ALKPHOS 143 (H) 10/11/2023 0355 ALKPHOS 178 (H) 02/09/2023 1022 AST 20 10/11/2023 0355 AST 16 02/09/2023 1022 ALT 28 10/11/2023 0355 ALT 29 02/09/2023 1022 PROCAL 0.83 (H) 10/07/2023 1803 Lab Results Component Value Date/Time WBC 9.4 10/11/2023 0355 HGB 10.9 (L) 10/11/2023 0355 HCT 32.1 10/11/2023 0355 PLT 347 10/11/2023 0355 GRANULOCYTES 73.2 12/08/2020 1558 LYMPHOPCT 26.5 10/08/2023 0307 MONOPCT 7.3 10/08/2023 0307 LABEOS 1.0 12/08/2020 1558 BASOPCT 0.8 10/08/2023 0307 NEUTROABS 6.5 10/08/2023 0307 Micro- 10/07 Blood CX ID (-) 10/07 Blood CX 1/2 (+) for Acinetobacter lwoffii 10/07 Respiratory Pathogens Panel by PCR (-) 10/07 Urine CX NGTD 10/08 MRSA by PCR (+) for MRSA 10/09 Blood CX x2 NGTD Lines/Drains/Airways- 10/08 LUE PIV Radiography/Echo/Other- 10/07 CTH w/o IV contrast Mild parenchymal volume loss. No acute intracranial process. Spondylosis w/ calcific/ossific densities at cranial cervical and C1-C2 junction not adequately visualized for proper evaluation. 10/07 CXR 1V Diminished lung volume w/ interstitial prominence and small linear basilar atelectasis w/o acute infiltrate or overt congestion. Heart normal in size. No mediastinal widening, sizable pleural effusion, or other significant change from last exam. There is spondylosis. No acute pulmonary process. 10/08 CT a/p w/ contrast No evidence of acute infectious or inflammatory process in abdomen or pelvis. The liver demonstrates generalized diminished attenuation as compared to the spleen, compatible with hepatic steatosis. Hyperdensity within gallbladder lumen, suggestive of sludge and/or cholelithiasis. Patchy opacities in R lung base. 10/08 US abdomen limited Gallstones. No definite acute biliary process. Limited due to body habitus and bowel gas. Antimicrobials, Start/End Dates- 10/07-10/08 vancomycin 10/07-10/10 piperacillin/tazobactam 10/10- ampicillin/sulbactam History of Present Illness- Maria Luisa Jacinto is a 57 y/o transgender M (pronouns he/him) w/ PMH of RLE OM s/p RLE AKA, ID-T2DM, gastroparesis, JOHN (not on CPAP), h/o recurrent cellulitis of LLE, h/o endometrial CA, HTN, HLD, lymphedema, venous insufficiency, schizophrenia, bipolar 1 disorder, anxiety, depression. Presented to ED 10/07 d/t AMS, hypoglycemia. POC glucose was 36; given glucagon x2. ED w/u showed T91.4F, WBC 13.3. Armando Hugger was placed and D50 given. Blood CXs 10/07 are 1/2 (+) for Acinetobacter lwoffii. The ID service is following for BSI due to Acinetobacter lwoffii. Impression- Bloodstream infection due to Acinetobacter lwoffii Presented w/ hypoglycemia + AMS; found to have hypothermia + leukocytosis Blood CXs from 10/07 were 1/2 (+) for A lwoffii Source unclear at this time; CT a/p showed no acute process On IV ampicillin/sulbactam (day 2); on day 5 total of active therapy Plan is for 14d course, end date 10/21 Gallstones w/o acute biliary process H/o RLE OM d/t MRSA, CRE s/p RLE AKA Type II diabetes mellitus- insulin-dependent; c/b gastroparesis Obstructive sleep apnea- not on CPAP H/o recurrent cellulitis of LLE H/o endometrial CA Hypertension Hyperlipidemia Lymphedema Venous insufficiency Schizophrenia Bipolar 1 disorder Anxiety Depression Plan- Maintain IV ampicillin/sulbactam while inpatient Will plan to treat for 2 weeks total, planned end date 10/21 Favor continuing full course w/ IV therapy; would avoid FQ due to ongoing hypoglycemia issues The ID service will continue to follow. Based on diagnoses and management, combination of acute and chronic problems, exacerbations and/or acuity, this visit should be considered to be of moderate complexity. Mukul Coreas DO [facility] [place] Infectious Diseases Office Tel. [phone] Department of Internal Medicine Division of Endocrinology, Diabetes, & Metabolism Endocrinology Note Patient Name: Will Jacinto : 1965 AGE: 57 y.o. Room/Bed: [facility]/[address] Admission Date: 10/07/2023 Visit Date: 10/11/2023 Reason for Endocrine Consult: U-500 dosing, hypoglycemia Provider/Team Requesting Consult: IMS PCP: Jared Guzman Outpt District Sales Coordinator: Dr. Lee ASSESSMENT: Type 2 diabetes with hypoglycemia and long-term insulin use Acinetobacter bacteriemia NOY Diabetic polyneuropathy Gastroparesis Morbid obesity-BMI Hypertension Hyperlipidemia PLAN: Current sugars are significant for hyperglycemia Patients appetite is on the lower side and he now has an NOY. Will stop U 500 and use NPH and Humalog until the above mentioned parameters are better Start NPH 40 units bid Start Humalog 25 units with meals Start Humalog medium dose scale with meals ICU goal <180 GMF goal <150 POCT BG ACHS Hypoglycemia per protocol Carb controlled diet ANTICIPATED ENDOCRINE HOME GOING RECOMMENDATIONS: Optimized for Discharge from Endocrine standpoint: No Home Going Endocrine Rx Recommendations-- U 500 Insulin doses to be decided Trulicity-to be decided Outpt Follow Up-- 10/27/2023 SUBJECTIVE/HPI: CHIEF COMPLAINT: Chief Complaint Patient presents with Hypoglycemia Patient is a 57-year-old transgender male with history of type 2 diabetes, hypertension, hyperlipidemia, diabetic polyneuropathy, s/p right AKA and [facility] for [facility]/unresponsiveness. Patient had received 260 units of U-500 with lunch and 285 units with dinner , but did not eat much of dinner and was found to be unresponsive and diaphoretic at 4:45 in the morning. Per notes patient has had poor p.o. intake for the 4 days before admission in addition to nausea and vomiting. Type of DM: 2 Onset of DM: 1991 Home DM Medication Regimen: U-500 insulin - 285 units before breakfast/260 units before lunch/285 units before dinner , Trulicity 4.5 mg weekly DM control (last A1c/glucose data): 7.7% on current admission Patient was seen at bedside Did not receive U 500 insulin yesterday since patient did not eat lunch and dinner. Patient mentions that he started having abdominal discomfort and nausea after breakfast yesterday Renal functions today show NOY Today he feels better , was able to tolerate breakfast and has ordered lunch Encouraged to increase PO hydration Glucose Date/Time Value Ref Range Status 10/11/2023 08:35 AM 354 (H) 70 - 100 mg/dL Final 10/11/2023 12:40 AM 386 (H) 70 - 100 mg/dL Final 10/10/2023 10:22 PM 404 (H) 70 - 100 mg/dL Final 10/10/2023 07:48 PM 405 (H) 70 - 100 mg/dL Final 10/10/2023 05:15 PM 353 (H) 70 - 100 mg/dL Final 10/10/2023 12:38 PM 253 (H) 70 - 100 mg/dL Final Review of Systems ROS negative except for those mentioned in HPI. OBJECTIVE: Vitals: 10/11/23 0037 10/11/23 0244 10/11/23 0326 10/11/23 0705 BP: (!) 149/98 101/73 (!) 151/71 121/69 BP Location: Right arm Right arm Patient Position: Lying Lying Pulse: 92 89 92 Resp: 22 22 Temp: 36.3 C (97.4 F) (!) 35.7 C (96.3 F) TempSrc: Temporal Temporal SpO2: 98% 95% Weight: Height: Physical Exam Vitals and nursing note reviewed. Constitutional: Appearance: Normal appearance. He is obese. HENT: Head: Normocephalic and atraumatic. Mouth/Throat: Mouth: Mucous membranes are dry. Cardiovascular: Rate and Rhythm: Normal rate and regular rhythm. Pulmonary: Effort: Pulmonary effort is normal. Abdominal: General: There is distension. Musculoskeletal: General: Swelling present. Comments: Left lower extremity venous stasis changes noted Right AKA Skin: General: Skin is dry. Neurological: General: No focal deficit present. Mental Status: He is alert and oriented to person, place, and time. Psychiatric: Attention and Perception: Attention normal. Mood and Affect: Affect is flat. Behavior: Behavior is slowed. 24 hour intake/output: Intake/Output Summary (Last 24 hours) at 10/11/2023 0941 Last data filed at 10/11/2023 0646 Gross per 24 hour Intake 3530.5 ml Output 5100 ml Net -1569.5 ml Diet: Adult diet Regular; Isolation Tray (Disposables); 5 carb choices (75 gm/meal) Medications (as per EMR): HomeMeds: Current Outpatient Medications Medication Instructions acetaminophen (TYLENOL) 650 mg, Oral, Every 4 hours PRN ARIPiprazole (Abilify) 10 MG tablet Every 24 hours aspirin 81 MG EC tablet 1 tablet, Oral, Daily atorvastatin (Lipitor) 10 MG tablet 1 tablet, Oral, Daily bisacodyl (DULCOLAX) 5 mg, Oral, 2 times daily PRN, Do not crush, chew, or split. cinnamon 2,000 mg, Oral, Daily clotrimazole (Lotrimin) 1 % cream Topical, 2 times daily dilTIAZem CD (CARDIZEM CD) 180 mg, Oral, Daily dulaglutide (TRULICITY) 4.5 mg, SubCUTAneous, Weekly, Every FLUoxetine (PROZAC) 40 mg, Oral, Daily gabapentin (NEURONTIN) 100 mg, Oral, 2 times daily insulin regular (HumuLIN R U-500 KWIKPEN) 500 UNIT/ML CONCENTRATED injection SubCUTAneous, 3 times daily, 285 units before breakfast/260 units before lunch/285 units before dinner Lactobacillus Acid-Pectin (Acidophilus/Rosemead Pectin) tablet 1 tablet, Oral, 2 times daily lisinopril 40 MG tablet Every 24 hours Loratadine 10 MG capsule Oral magnesium hydroxide (Milk of Magnesia Concentrate) 2400 MG/10ML suspension suspension Every 24 hours megestrol (Megace) 20 MG tablet 1 tablet, Oral, 2 times daily melatonin 10 mg, Oral, Nightly PRN metoclopramide (REGLAN) 10 mg, Oral, 4 times daily metoprolol tartrate (Lopressor) 25 MG tablet 1 tablet, Oral, 2 times daily miconazole (Micotin) 2 % powder Topical, 2 times daily ondansetron (ZOFRAN) 4 mg, Oral, Every 6 hours PRN pantoprazole (PROTONIX) 40 mg, Oral polyethylene glycol (PEG) 3350 (GLYCOLAX) 17 g, Oral, Daily potassium chloride CR (K-Tab) 20 MEQ ER tablet Every 24 hours Scheduled Meds:ampicillin-sulbactam, 3,000 mg, IntraVENous, q6h ARIPiprazole, 10 mg, Oral, q24h aspirin, 81 mg, Oral, Daily atorvastatin, 10 mg, Oral, Nightly clotrimazole, , Topical, BID dilTIAZem CD, 180 mg, Oral, Daily enoxaparin, 30 mg, SubCUTAneous, 2 times per day FLUoxetine, 40 mg, Oral, Daily gabapentin, 100 mg, Oral, BID influenza, 0.5 mL, IntraMUSCular, Once insulin lispro, 0-12 Units, SubCUTAneous, TID WC insulin lispro, 25 Units, SubCUTAneous, TID WC insulin NPH, 40 Units, SubCUTAneous, BID lisinopril, 40 mg, Oral, Daily magnesium sulfate, 2,000 mg, IntraVENous, BID megestrol, 20 mg, Oral, BID melatonin, 10 mg, Oral, Nightly metoprolol tartrate, 25 mg, Oral, BID pantoprazole, 40 mg, Oral, qAM AC polyethylene glycol (PEG) 3350, 17 g, Oral, Daily Continuous Infusions: PRN Meds:PRN medications: acetaminophen, dextrose, dextrose, glucagon (rDNA), glucose, labetalol, ondansetron, polyethylene glycol (PEG) 3350, prochlorperazine Diagnostic Workup: I reviewed pertinent Laboratory results, Radiographic results, and Other Clinical Notes at the time of today's encounter. Labs: No components found for: LABA1C No components found for: "EAG" Lab Results Component Value Date NA 128 (L) 10/11/2023 K 4.2 10/11/2023 CL 95 (L) 10/11/2023 CO2 22 10/11/2023 BUN 28 10/11/2023 CREATININE 1.30 10/11/2023 GLUCOSE 397 (H) 10/11/2023 CALCIUM 8.7 10/11/2023 Lab Results Component Value Date CHLPL 125 08/29/2020 Lab Results Component Value Date TRIG 190 08/29/2020 Lab Results Component Value Date HDL 31 (A) 08/29/2020 Lab Results Component Value Date LDLCALC 56 08/29/2020 Lab Results Component Value Date VLDL 38 08/29/2020 No results found for: CHOLHDLRATIO No results found for: [id number] Lab Results Component Value Date TSH 2.356 11/26/2020 Radiology reportsas per the Radiologist Radiology: CT abdomen pelvis w contrast Result Date: 10/08/2023 [facility] 1965 [id number] Exam Date/Time: 10/08/2023 09:36 Procedure: CT ABDOMEN PELVIS W CONTRAST Ordering Provider: ROBERTSON MEREDITH Reason For Exam: Nausea/vomiting CT ABDOMEN AND PELVIS WITH CONTRAST CLINICAL INDICATION: Nausea and vomiting. TECHNIQUE: Multi-axial 3mm sections through the abdomen and pelvis following 75 mL of Isoview contrast media. No oral contrast was administered. Coronal and sagittal reconstructions were reviewed. Dose reduction was employed with automated exposure control. COMPARISON: 08/17/2023. FINDINGS: Lower thorax: Patchy opacities in the right lung base. Otherwise unremarkable. Stomach: Unremarkable. Liver: Normal size and contours. The liver demonstrates generalized diminished attenuation as compared to the spleen, compatible with hepatic steatosis. No focal lesion. Biliary tree: Hyperdensity within the gallbladder lumen, suggestive of sludge and/or cholelithiasis. No pericholecystic inflammatory change by CT. No biliary dilatation. Spleen: Normal. Adrenals: Normal. Pancreas: Normal. Kidneys: Symmetric contrast enhancement without evidence of hydronephrosis. No focal renal lesion is identified. Free air or fluid: None. Mesenteric/retroperitoneal: No adenopathy or inflammation. Aorta: Normal caliber of aorta and bilateral common iliac arteries. Bowel: No inflammatory changes in the right lower quadrant. No inflammatory change or bowel dilatation is noted. Urinary bladder: Unremarkable. Abdominal wall/soft tissues: No ventral hernia is evident. Pelvic organs/viscera: The uterus is present. Inguinal: No lymphadenopathy. Osseous structures: Advanced multilevel thoracolumbar spine degenerative changes including DISH. Advanced bilateral hip osteoarthritis. 1. No evidence of acute infectious or inflammatory process in the abdomen or pelvis. 2. The liver demonstrates generalized diminished attenuation as compared to the spleen, compatible with hepatic steatosis. 3. Hyperdensity within the gallbladder lumen, suggestive of sludge and/or cholelithiasis; consider right upper quadrant ultrasound. 4. Patchy opacities in the right lung base. Report Dictated on Electronically Signed By: Bao Hill MD Electronically Signed Date/Time: 10/08/2023 10:23 AM EST XR chest 1 view Result Date: 10/07/2023 Patient Name: WILL JACINTO : 1965 Exam Date/Time: 10/07/2023 07:31 Procedure: XR CHEST 1 VIEW Ordering Provider: MUSTAFA KATHRYN Reason For Exam: altered, hypoglyc CHEST (Frontal View) History: Hypoglycemia, change in mental status Comparison: 08/08/2023 Findings: Frontal chest view shows diminished lung volume with interstitial prominence and small linear basilar atelectasis without acute infiltrate or overt congestion. The heart is normal in size. There is no mediastinal widening, sizable pleural effusion, or other significant change from last exam. There is spondylosis. Chronic findings. No appreciable acute pulmonary process. Report Dictated on Electronically Signed By: Angel Randhawa MD Electronically Signed Date/Time: 10/07/2023 7:[address] head wo IV contrast Result Date: 10/07/2023 Patient Name: WILL JACINTO : 1965 Exam Date/Time: 10/07/2023 07:29 Procedure: CT HEAD WO IV CONTRAST Ordering Provider: MUSTAFA KATHRYN Reason For Exam: AMS UNENHANCED HEAD CT History: Change in mental status Comparison: None available Technique: Multislice axial CT sections obtained from the base to the vertex of the brain without IV contrast enhancement. Multiplanar sagittal and coronal reconstructed images also obtained. Dose reduction employed with automated exposure control. Findings: There is mild parenchymal loss with prominent cortical sulci and fissures, not unusual for age. The ventricles are normal in size for age. There is no intracranial hemorrhage, midline shift, or other mass effect in the brain. The exam is limited without contrast enhancement. There are mild carotid siphon calcifications. The paranasal sinuses and bilateral mastoid air cells are clear. There is spondylosis with prominent calcific/ossific densities at the cervical cranial and C1-C2 junction that are not adequately visualized for proper evaluation. Mild parenchymal volume loss. No evidence of acute intracranial process. 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 other toe(s), unspecified side (HCC) Anxiety disorder Bipolar 1 disorder ([facility]) Blood circulation, collateral Cellulitis chronic L lower leg COVID 12/08/2021 Depression Diabetes mellitus ([facility]) Type II, on insulin Disease of blood and blood forming organ Endometrial carcinoma (HCC) 11/25/2020 Endometrial hyperplasia Foot ulcer ([facility]) Hx of blood clots RLE prior to amputation Hyperlipidemia Hypertension Lymphedema 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, RLE Morbidly obese ([facility]) Muscle weakness Osteomyelitis (HCC) Osteomyelitis (HCC) 2019 RLE Other lack of coordination Other specified soft tissue disorders Other symbolic dysfunctions Schizophrenia ([facility]) Sleep apnea no CPAP Venous insufficiency Past Surgical History: Past Surgical History: Procedure Laterality Date ABCESS DRAINAGE Right 09/09/2018 FOOT; ACH COLONOSCOPY 09/19/[address] Hyde DILATION AND CURETTAGE OF UTERUS 05/18/2019 HYSTEROSCOPY 12/23/2021 LEG AMPUTATION THROUGH KNEE Right 06/16/2019 UPPER GASTROINTESTINAL ENDOSCOPY N/A 06/29/2023 Dr Sergio Sibley at [facility]; no specimens WISDOM TOOTH EXTRACTION Allergy(ies): No Known Allergies Family History: Family History Problem Relation Name Age of Onset No Known Problems Mother No Known Problems Father Social History: Social History Tobacco Use Smoking status: Never Smokeless tobacco: Never Vaping Use Vaping Use: Never used Substance Use Topics Alcohol use: No Drug use: Never Portions of the information within this encounter were entered using an electronic dictation system. Best attempts were made to edit/proofread the information prior to note completion. Despite the review of information, some errors may remain. If there are questions related to the information contained within the note please contact the signing physician directly. I spent 35 minutes with the pt which involved coordination of care, medical evaluation, review of records, and/or counseling of the pt regarding his/her condition/disease state/prognosis on the date of this note. Images from the original note were not included. Hospitalist Progress Note 10/11/[phone]: Please page IMS night Hospitalist for any issues. Admit Date: 10/07/2023 PCP: Jared Guzman Room#: [id number] A Brief hospital course: Patient admitted 10/07/2023 for hypoglycemia 2/2 insulin use with poor PO intake, hypothermia, ?sepsis. 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 Initially presented from [facility] with hypoglycemia and unresponsiveness, POC glucose 36. Had been having poor PO intake 4-5 days d/t N/V and insulin had not been adjusted. On presentation he was hypothermic (91 F); mentation had not initially improved s/p resolution of hypoglycemia, but once warming was underway his mentation improved. Found to have blood cultures (+)Acinetobacter, and given (+)SIRS on presentation he likely did have sepsis POA. Subjective: Interval History: Borderline tachycardia and with tachypnea overnight. No problems today, reports still some intermittent abdominal discomfort after eating but is much improved from prior; able to finish meals today w/o issue. 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 other toe(s), unspecified side (HCC) Anxiety disorder Bipolar 1 disorder (HCC) Blood circulation, collateral Cellulitis chronic L lower leg COVID 12/08/2021 Depression Diabetes mellitus (HCC) Type II, on insulin Disease of blood and blood forming organ Endometrial carcinoma (HCC) 11/25/2020 Endometrial hyperplasia Foot ulcer (HCC) Hx of blood clots RLE prior to amputation Hyperlipidemia Hypertension Lymphedema 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, RLE Morbidly obese (HCC) Muscle weakness Osteomyelitis (HCC) Osteomyelitis (HCC) 2019 RLE Other lack of coordination Other specified soft tissue disorders Other symbolic dysfunctions Schizophrenia (HCC) Sleep apnea no CPAP Venous insufficiency Objective: Vitals: BP 121/69 (BP Location: Right arm, Patient Position: Lying) Pulse 92 Temp (!) 35.7 C (96.3 F) (Temporal) Resp 22 Ht 5' 6" (1.676 m) Wt (!) 316 lb (143 kg) SpO2 95% BMI 51.00 kg/m Pulse Ox: SpO2 Av.7 % Min: 95 % Max: 98 % General appearance: Obese. NAD. Cooperative with exam. Respiratory: CTAB. Normal effort. Cardiovascular: RRR. No M/R/G. Abdomen: NBS. Soft. NT/ND. Musculoskeletal: R-AKA, unremarkable residual limb. Integument: LLE anterior francisco with area of erythema, warmth, mild induration, and mild tenderness. Neurologic: Alert. Answering questions & following directions appropriately. Labs/Studies: The following labs and/or studies were reviewed by me as part of today's encounter. HEME: Recent Labs 10/11/23 0355 WBC 9.4 RBC 3.82 HGB 10.9* HCT 32.1 MCV 84.2 RDW 14.8* PLT 347 CHEM: Recent Labs 10/09/23 0903 10/10/23 0227 10/11/23 0355 NA 130* -- 128* K 4.5 -- 4.2 CL 98 -- 95* CO2 23 -- 22 BUN 23 -- 28 CREATININE 0.76 -- 1.30 EGFR >90.0 -- 48.4* GLUCOSE 344* 45* 397* CALCIUM 8.7 -- 8.7 ANIONGAP 9 -- 12 Recent Labs 10/11/23 0355 MG 1.3* ALBUMIN 3.8 (MG, CRP, SEDRATE, and CKTOTAL are separate not part of a panel; PHOS may be separate or part of a RENAL panel) LIVER: Recent Labs 10/11/23 0355 AST 20 ALT 28 BILITOT 0.7 ALKPHOS 143* ALBUMIN 3.8 PROT 6.5 (on any date where BILIDIR is present then there is a full hepatic panel, not a CMP; lipase & GGT are separate labs not part of a panel) COAG: No results for input(s): "PROTIME", "INR", "PTT" in the last 72 hours. CARDIAC: No results for input(s): "TROPONINI" in the last 72 hours. NT PRO BNP Date Value Ref Range Status 06/28/2023 150 <20 - 300 pg/mL Final Recent Labs 10/10/23 0837 10/10/23 1238 10/10/23 1715 10/10/23 1948 10/10/23 2222 10/11/23 0040 POCGLU 254* 253* 353* 405* 404* 386* No results for input(s): "LACTATE" in the last 72 hours. Lab Results Component Value Date HGBA1C 7.7 (H) 10/09/2023 Urine Culture: Results for orders placed or performed during the hospital encounter of 10/07/23 Urine culture Specimen: Urine, Clean Catch Result Value Ref Range Urine Culture No growth (<1,000 CFU/mL) Blood Culture: Results for orders placed or performed during the hospital encounter of 10/07/23 Blood culture Site #2 - Assess for effectiveness of treatment Specimen: Blood, Venous Result Value Ref Range Blood Culture No growth at 24 hours Blood culture Site #1 - Assess for effectiveness of treatment Specimen: Blood, Venous Result Value Ref Range Blood Culture No growth at 24 hours Currently Ordered Medications: Current Facility-Administered Medications: acetaminophen (Tylenol) tablet 650 mg, 650 mg, Oral, q4h PRN, Rachael Robertson APRN - KRANTHI, 650 mg at 10/08/23 0554 ampicillin-sulbactam (Unasyn) 3,000 mg in sodium chloride 0.9 % 100 mL IVPB (Add-[place]), 3,000 mg, IntraVENous, q6h, Cleveland Trae, PA-C, Last Rate: 200 mL/hr at 10/11/23 0646, 3,000 mg at 10/11/23 0646 ARIPiprazole (Abilify) tablet 10 mg, 10 mg, Oral, q24h, Rachael Robertson APRN - KRANTHI, 10 mg at 10/09/23 175 aspirin EC tablet 81 mg, 81 mg, Oral, Daily, Rachael Robertson APRN - KRANTHI, 81 mg at 10/10/23 0907 atorvastatin (Lipitor) tablet 10 mg, 10 mg, Oral, Nightly, Rachael Robertson APRN - KRANTHI, 10 mg at 10/10/232042 clotrimazole (Lotrimin) 1 % cream, , Topical, BID, JEREMY Liao CNP, Given at 10/10/232042 dextrose 5 % infusion, 100 mL/hr, IntraVENous, PRN, JEREMY Liao CNP, Stopped at 10/10/23 05 dextrose 50 % solution 12.5 g, 12.5 g, IntraVENous, PRN, JEREMY Liao CNP dilTIAZem CD (Cardizem CD) 24 hr capsule 180 mg, 180 mg, Oral, Daily, Rachael Robertson APRN - KRANTHI, 180 mg at 10/10/2309 enoxaparin (Lovenox) syringe 30 mg, 30 mg, SubCUTAneous, 2 times per day, Rachael Robertson APRN - KRANTHI, 30 mg at 10/10/232043 FLUoxetine (PROzac) capsule 40 mg, 40 mg, Oral, Daily, Rachael Robertson APRN - KRANTHI, 40 mg at 10/10/23908 gabapentin (Neurontin) capsule 100 mg, 100 mg, Oral, BID, Rachael Robertson APRN - [employer], 100 mg at 10/10/232042 glucagon (human recombinant) injection 1 mg, 1 mg, IntraMUSCular, PRN, Rachael Robertson APRN - KRANTHI glucose oral gel 15 g, 15 g, Oral, PRN, Rachael Robertson APRN - [employer], 15 g at 10/10/236 influenza vac subunit quadrivalent (Flucelvax) injection 0.5 mL, 0.5 mL, IntraMUSCular, Once, JEREMY Liao CNP Insulin Lispro (Humalog) injection 0-12 Units, 0-12 Units, SubCUTAneous, TID Amrita CUEVAS MD Insulin Lispro (Humalog) injection 25 Units, 25 Units, SubCUTAneous, TID , Amrita Garcia MD insulin NPH (Isophane) (HumuLIN N,NovoLIN N) injection 40 Units, 40 Units, SubCUTAneous, BID, mArita Garcia MD labetalol (Normodyne,Trandate) injection 20 mg, 20 mg, IntraVENous, q6h PRN, Ricardo Spring MD, 20 mg at 10/10/232238 lisinopril tablet 40 mg, 40 mg, Oral, Daily, Mayda Olmstead MD, 40 mg at 10/10/231823 megestrol (Megace) tablet 20 mg, 20 mg, Oral, BID, JEREMY Liao CNP, 20 mg at 10/10/232042 melatonin tablet 10 mg, 10 mg, Oral, Nightly, JEREMY Liao CNP, 10 mg at 10/10/232042 metoprolol tartrate (Lopressor) tablet 25 mg, 25 mg, Oral, BID, JEREMY Liao CNP, 25 mg at 10/10/232042 ondansetron (Zofran) tablet 4 mg, 4 mg, Oral, q6h PRN, JEREMY Liao CNP, 4 mg at 10/10/232042 pantoprazole (ProtoNix) EC tablet 40 mg, 40 mg, Oral, qAM AC, JEREMY Liao CNP, 40 mg at 10/11/23 0614 polyethylene glycol (PEG) 3350 (Miralax) packet 17 g, 17 g, Oral, Daily PRN, JEREMY Liao CNP polyethylene glycol (PEG) 3350 (Miralax) packet 17 g, 17 g, Oral, Daily, JEREMY Liao CNP, 17 g at 10/08/23 1042 prochlorperazine (Compazine) injection 5 mg, 5 mg, IntraVENous, q6h PRN, Mayda Olmstead MD, 5 mg at 10/11/23 0024 Medical Decision Making: Acute, acute on chronic, unstable/uncontrolled chronic problems: Acinetobacter bacteremia Sepsis POA Unsure of source IDDM2 ("brittle") with hyperglycemia & hypoglycemia, polyneuropathy NOY Hyponatremia, mild Hypomagnesemia, mild N/V with known gastroparesis, sx nearly fully resolved LLE erythema, previously eval'd and deemed unlikely to be cellulitis Hypoglycemia, resolved AMS, resolved Hypothermia, resolved Stable chronic problems affecting care, new non-acute diagnoses: Class III morbid obesity JOHN no CPAP (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) prior R-AKA prior DVT Schizoaffective bipolar type Cholelithiasis As a result of the above findings & factors, the following mgmt was pursued: - ID following, appreciate recs - amp/sulb - following repeat Cx (collected 10/09) - endocrinology following, appreciate recs - pausing U-500 to temporarily use NPH + lispro - glucose requires close monitoring d/t risk of recurrent hypoglycemia given the high doses of insulin being used on top of the current NOY & known lability (glucose 45 yesterday morning, >450 today) - hold ACEi, check urine labs - replete Mg IV - PT/OT/CM/SW - delirium precautions: increase activity - DVT prophylaxis: enoxaparin and encourage ambulation Data: (CAT1) Reviewed 3 or more labs/studies ordered by another provider not previously counted (each=1, panels count as 1). (Note: labs/studies can only be counted once--either when ordered or when reviewed--not both.) Advance Directive: Full Code Anticipated Discharge - Date - 1-3 days - Location - Skilled Facility - Pending the following - insulin & antibx recs for discharge Marcio Armando MD Division of Hospitalist Medicine [place] [place]: Moderate (3x CAT1 -OR- 1x CAT2 -OR- 1x CAT3) Complexity: Acute illness or injury posing a threat to life or body function (HIGH). Risk: Use/consideration of therapy requiring intensive monitoring: parenteral cardioactive electrolyte repletion, ex: calcium gluconate, magnesium, potassium (rapid hypotension, arrhythmias or arrest); telemetry, BMP (HIGH). Estimated MDM: High (26970/95253) Note: the above MDM determinations are made by me for my own use to estimate my end-of-day billing codes. However, documentation is reviewed by professional coders; following their review of documentation, and in accordance with current AMA CPT, CMS, and ACDIS guidelines, the actual billing code(s) may differ from my estimate. [facility] Respiratory Care Department Progress Note Comment or reasoning for refusal: Patient was seen in attempts to fulfill CPAP/BiPAP/AutoPAP order. Patient refused PAP therapy/study at this time. Patient was educated on medical need and reasoning for physician order to ensure patient was making an informed medical decision. All of the patient's questions were answered at this time and patient was informed that if the patient changes their mind regarding wearing PAP to hit their "call light" or inform their nurse to contact Respiratory. A second, consecutive night of refusing PAP therapy/study results in order completion in the EMR. If future CPAP/BiPAP/AutoPAP therapy or study is indicated please place another order in the EMR and the assigned Respiratory Therapist will reattempt to fulfill orders. Reason for refusal: Thank you for involving Respiratory in the care of this patient, Images from the original note were not included. [facility] - Infectious Diseases Advanced Practice Provider Progress Note Subjective: Following patient for Acinetobacter bacteremia. Notes reviewed. Patient more awake and conversant today. He reports feeling better overall. Able to recall he had stomach pain, N/V, and poor appetite prior to hospitalization. Reports this pain and nausea have largely resolved and that he has had a good appetite today. Notes he has numbness and tingling in fingers. Denies fever, chills, CP, SOB, cough, diarrhea, constipation, and any urinary issues. No other new exacerbating or alleviating factors. Objective: Vitals: Patient Vitals for the past 24 hrs: BP Temp Temp src Pulse Resp SpO2 10/10/23 1716 (!) 193/90 36.7 C (98 F) Temporal 102 18 95 % 10/10/23 1341 125/70 37.2 C (99 F) Temporal 90 20 96 % 10/10/23 1004 (!) 149/76 36.6 C (97.9 F) Temporal 77 12 95 % 10/10/23 0445 -- 36.6 C (97.8 F) Axillary -- -- -- 10/10/23 0217 122/52 (!) 35.7 C (96.2 F) Temporal 68 22 92 % 10/10/23 0046 -- -- -- 65 -- 93 % 10/10/23 0045 108/52 -- -- 65 -- 93 % 10/09/23 2355 101/51 -- -- 71 -- 92 % 10/09/23 2324 (!) 77/43 -- -- 74 -- -- 10/09/23 2255 (!) 74/39 -- -- 76 -- 96 % 10/09/23 2251 (!) 66/37 36 C (96.8 F) Temporal 77 18 93 % 10/09/23 2112 92/57 36 C (96.8 F) Temporal 78 20 95 % 10/09/23 1756 (!) 107/44 (!) 35.9 C (96.6 F) Temporal 72 16 95 % Physical Exam: Physical Exam Vitals and nursing note reviewed. Constitutional: General: He is not in acute distress. Appearance: He is obese. He is ill-appearing. He is not toxic-appearing. Comments: NAD sitting up in bed eating. More awake today. Interactive, cooperative, conversant. A&Ox3. HENT: Head: Normocephalic and atraumatic. Right Ear: External ear normal. Left Ear: External ear normal. Mouth/Throat: Mouth: Mucous membranes are moist. Pharynx: Oropharynx is clear. Eyes: Extraocular Movements: Extraocular movements intact. Conjunctiva/sclera: Conjunctivae normal. Pupils: Pupils are equal, round, and reactive to light. Cardiovascular: Rate and Rhythm: Normal rate and regular rhythm. Pulses: Normal pulses. Heart sounds: Normal heart sounds. Pulmonary: Effort: Pulmonary effort is normal. Breath sounds: Normal breath sounds. Comments: Breathing comfortably on room air Abdominal: General: Abdomen is flat. There is no distension. Palpations: Abdomen is soft. Tenderness: There is no abdominal tenderness. Musculoskeletal: Left lower leg: Edema present. Comments: R AKA stump with healed scar Skin: General: Skin is warm and dry. Comments: LLE with swelling, dusky erythema. No warmth, tenderness, wounds. Neurological: General: No focal deficit present. Mental Status: He is alert and oriented to person, place, and time. Psychiatric: Mood and Affect: Mood normal. Behavior: Behavior normal. Labs: Recent Labs 10/07/23 1803 10/08/23 0307 10/09/23 0903 10/10/23 0227 NA -- 130* 130* -- K -- 4.2 4.5 -- CL -- 100 98 -- CO2 -- 22 23 -- BUN -- 34 23 -- CREATININE -- 1.09 0.76 -- GLUCOSE -- 288* 344* 45* CALCIUM -- 8.1* 8.7 -- PROT -- 5.9* -- -- BILITOT -- 0.9 -- -- ALKPHOS -- 143* -- -- AST -- 33 -- -- ALT -- 42 -- -- PROCAL 0.83* -- -- -- Recent Labs 10/08/23 0307 WBC 10.1 HGB 10.6* HCT 31.6 PLT 339 LYMPHOPCT 26.5 MONOPCT 7.3 BASOPCT 0.8 NEUTROABS 6.5 Micro: No results for input(s): "COVID19" in the last 72 hours. 10/07 Blood Cx: 1/2 Acinetobacter lwoffii 10/07 Resp PCR Panel: neg 10/07 Urine Cx: NG 10/08 MRS PCR: + MRSA 10/09 Blood Cx: NGTD Lines: PIV Radiography/Echo/Other: 10/07 CT Head Mild parenchymal volume loss. No evidence of acute intracranial process. 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 10/07 CXR Chronic findings. No appreciable acute pulmonary process. 10/08 CT abd/pelvis 1. No evidence of acute infectious or inflammatory process in the abdomen or pelvis. 2. The liver demonstrates generalized diminished attenuation as compared to the spleen, compatible with hepatic steatosis. 3. Hyperdensity within the gallbladder lumen, suggestive of sludge and/or cholelithiasis; consider right upper quadrant ultrasound. 4. Patchy opacities in the right lung base. 10/08 US abd Gallstones. No definite acute biliary process. Consider follow-up or further evaluation. Limited due to body habitus and bowel gas. Antimicrobials,Start/End Dates: Pip-Tazo: 10/07-10/10 Vanc: 10/07-10/09 Amp-Sulbactam: 10/11- Impression: Acinetobacter bacteremia from ?source Episode hypoglycemia/unresponsiveness Hypothermia Gallstones without acute biliary process Hx OM s/p R AKA Gastroparesis with N/V IDDM anxiety/depression/BPD1/schizoph joão Plan: Following patient for Acinetobacter bacteremia from unknown source. Urine Cx NG. No open wounds or resp complaints. He does have Hx N/V + gallstones without acute biliary process. ? Possible GI in origin, but no obvious signs infection on CT abd/pelvis. Repeat Blood Cx so far NGTD. Plan to transition to Amp-Sulbactam for now. ID will continue to follow. Case and plan discussed with Dr. Farias. Based on diagnoses and management, combination of acute and chronic problems, exacerbations and/or acuity, this visit should be considered to be of moderate complexity. Skylar BLANCAS PA-C Images from the original note were not included. Hospitalist Progress Note Subjective: Admit Date: 10/07/2023 PCP: Jared Guzman Room#: [id number] A Interval History: PT denies any complaints today, awake and alert. Overnt pt became hypotensive and lethargic and found to have low blood glucose levels. Pt started on reg diet today. Adult diet Regular; Isolation Tray (Disposables); 5 carb choices (75 gm/meal) @[id number]@ 24HR INTAKE/OUTPUT: Intake/Output Summary (Last 24 hours) at 10/10/2023 1126 Last data filed at 10/10/2023 0552 Gross per 24 hour Intake 351.67 ml Output 0 ml Net 351.67 ml 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 other toe(s), unspecified side (HCC) Anxiety disorder Bipolar 1 disorder ([facility]) Blood circulation, collateral Cellulitis chronic L lower leg COVID 12/08/2021 Depression Diabetes mellitus ([facility]) Type II, on insulin Disease of blood and blood forming organ Endometrial carcinoma (HCC) 11/25/2020 Endometrial hyperplasia Foot ulcer (HCC) Hx of blood clots RLE prior to amputation Hyperlipidemia Hypertension Lymphedema 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, RLE Morbidly obese ([facility]) Muscle weakness Osteomyelitis (HCC) Osteomyelitis (HCC) 2019 RLE Other lack of coordination Other specified soft tissue disorders Other symbolic dysfunctions Schizophrenia ([facility]) Sleep apnea no CPAP Venous insufficiency LABS: CBC: Recent Labs 10/08/23306 WBC 10.1 RBC 3.72 HGB 10.6* HCT 31.6 MCV 84.9 RDW 15.7* PLT 339 BMP: Recent Labs 10/08/2330610/09/23 0903 10/10/23 022 NA 130* 130* -- K 4.2 4.5 -- CL 100 98 -- CO2 22 23 -- BUN 34 23 -- CREATININE 1.09 0.76 -- GLUCOSE 288* 344* 45* CALCIUM 8.1* 8.7 -- ANIONGAP 8 9 -- LIVER PROFILE: Recent Labs 10/08/23306 AST 33 ALT 42 BILITOT 0.9 ALKPHOS 143* PROT 5.9* PT/INR: No results for input(s): "PROTIME", "INR" in the last 72 hours. CARDIAC ENZYMES: No results for input(s): "TROPONINI" in the last 72 hours. Procalcitonin: Lab Results Component Value Date PROCAL 0.83 (H) 10/07/2023 COVID-19 PCR: No results for input(s): "COVID19" in the last 72 hours. Objective: Vitals: BP (!) 149/76 (BP Location: Right arm, Patient Position: Sitting) Pulse 77 Temp 36.6 C (97.9 F) (Temporal) Resp 12 Ht 5' 6" (1.676 m) Wt (!) 316 lb (143 kg) SpO2 95% BMI 51.00 kg/m Pulse Ox: SpO2 Av.8 % Min: 92 % Max: 96 % Supplemental O2: Patient is alert, awake, OBESE Heart S1 S2 No murmurs Lungs clear to auscultation Abdomen soft , non tender, non distended no organomegaly No pedal edema, no cyanosis, ERYTHEMA POS L mid lower leg, R above knee amputation Medications: sodium chloride, 75 mL/hr, Last Rate: 75 mL/hr (10/10/23 0900) ARIPiprazole, 10 mg, Oral, q24h aspirin, 81 mg, Oral, Daily atorvastatin, 10 mg, Oral, Nightly clotrimazole, , Topical, BID dilTIAZem CD, 180 mg, Oral, Daily enoxaparin, 30 mg, SubCUTAneous, 2 times per day FLUoxetine, 40 mg, Oral, Daily gabapentin, 100 mg, Oral, BID influenza, 0.5 mL, IntraMUSCular, Once [Held by provider] lisinopril, 40 mg, Oral, q24h megestrol, 20 mg, Oral, BID melatonin, 10 mg, Oral, Nightly metoclopramide, 10 mg, Oral, 4x daily metoprolol tartrate, 25 mg, Oral, BID pantoprazole, 40 mg, Oral, qAM AC piperacillin-tazobactam, 3,375 mg, IntraVENous, q8h polyethylene glycol (PEG) 3350, 17 g, Oral, Daily Assessment Sepsis- resolving Acute metabolic encephalopathy Hypoglycemia LLE erythema- likely not cellulits, mrsa panel pos, will await ID recs for vancomycin Nausea/vomiting- resolved John- will order cpap at night Plan - blood cultures pos for acinetobacter,, will continue zosyn,appreciate ID recs, repeat cultures pending,, source unknown, ? GB etiology, urine looks clean - MRSA Panel pos but no signs of cellulitis, vanc discontinued - hypoglycemic protocol - ct abd shows biliary sludge, us gall bladder pos for gall stones, no signs of cholecystitis at this time, caldwell's neg - pt able to tolerate diet at this time -am labs, replace lytes prn -increase activity -DVT prophylaxis: [] Lovenox [] Heparin [] SCDs [x] Encourage ambulation [] Already on Anticoagulation Advance Directive: Full Code Anticipated Discharge - Date - 10/11/2023 - Location - Skilled Facility - Pending the following - clinical improvement Toxic drug monitoring/narrow therapeutic index drug monitoring : # Drug name : # Route administered : # Method of monitoring : Mayda Olmstead MD 10/10/2023 Division of Hospitalist Medicine [place] [place]: [phone] Department of Internal Medicine Division of Endocrinology, Diabetes, & Metabolism Endocrinology Note Patient Name: Will Jacinto : 1965 AGE: 57 y.o. Room/Bed: [facility]/[address] Admission Date: 10/07/2023 Visit Date: 10/10/2023 Reason for Endocrine Consult: U-500 dosing, hypoglycemia Provider/Team Requesting Consult: IMS PCP: Jared Guzman Outpt District Sales Coordinator: Dr. Lee ASSESSMENT: Type 2 diabetes with hypoglycemia and long-term insulin use Abdominal pain with nausea and vomiting under evaluation Diabetic polyneuropathy Gastroparesis Morbid obesity-BMI Hypertension Hyperlipidemia PLAN: Current sugars are significant for hypoglycemia overnight U-500 insulins were on hold this morning. Noted that patient's diet has been advanced to carb controlled regular diet U 500 Doses 120 units with breakfast , Lower dose to 100 units with lunch and 60 units with dinner ICU goal <180 GMF goal <150 POCT BG ACHS Hypoglycemia per protocol Carb controlled diet ANTICIPATED ENDOCRINE HOME GOING RECOMMENDATIONS: Optimized for Discharge from Endocrine standpoint: No Home Going Endocrine Rx Recommendations-- U 500 Insulin doses to be decided Trulicity-to be decided Outpt Follow Up-- 10/27/2023 SUBJECTIVE/HPI: CHIEF COMPLAINT: Chief Complaint Patient presents with Hypoglycemia Patient is a 57-year-old transgender male with history of type 2 diabetes, hypertension, hyperlipidemia, diabetic polyneuropathy, s/p right AKA and he presented to [facility]/unresponsiveness. Patient had received 260 units of U-500 with lunch and 285 units with dinner , but did not eat much of dinner and was found to be unresponsive and diaphoretic at 4:45 in the morning. Per notes patient has had poor p.o. intake for the 4 days before admission in addition to nausea and vomiting. Type of DM: 2 Onset of DM: 1991 Home DM Medication Regimen: U-500 insulin - 285 units before breakfast/260 units before lunch/285 units before dinner , Trulicity 4.5 mg weekly DM control (last A1c/glucose data): 7.7% on current admission Patient was seen at bedside Was symptomatic with hypoglycemia to the 40s overnight-was notified by nursing staff Required dextrose infusion for short period of time Blood sugars this morning are in the 200s Patient doing well today without GI issues - was able to tolerate 100% of breakfast - regular diet today Glucose Date/Time Value Ref Range Status 10/10/2023 08:37 AM 254 (H) 70 - 100 mg/dL Final 10/10/2023 06:17 AM 258 (H) 70 - 100 mg/dL Final 10/10/2023 05:30 AM 248 (H) 70 - 100 mg/dL Final 10/10/2023 03:32 AM 101 (H) 70 - 100 mg/dL Final 10/10/2023 02:58 AM 67 (L) 70 - 100 mg/dL Final 10/10/2023 02:29 AM <50 (L) 70 - 100 mg/dL Final Comment: Confirmation Drawn; Review of Systems ROS negative except for those mentioned in HPI. OBJECTIVE: Vitals: 10/10/23 0046 10/10/23 0217 10/10/23 0445 10/10/23 1004 BP: 122/52 (!) 149/76 BP Location: Left arm Right arm Patient Position: Lying Sitting Pulse: 65 68 77 Resp: 22 12 Temp: (!) 35.7 C (96.2 F) 36.6 C (97.8 F) 36.6 C (97.9 F) TempSrc: Temporal Axillary Temporal SpO2: 93% 92% 95% Weight: Height: Physical Exam Vitals and nursing note reviewed. Constitutional: Appearance: Normal appearance. He is obese. HENT: Head: Normocephalic and atraumatic. Cardiovascular: Rate and Rhythm: Normal rate and regular rhythm. Pulmonary: Effort: Pulmonary effort is normal. Abdominal: General: There is distension. Musculoskeletal: General: Swelling present. Comments: Left lower extremity venous stasis changes noted Right AKA Skin: General: Skin is dry. Neurological: General: No focal deficit present. Mental Status: He is alert and oriented to person, place, and time. Psychiatric: Attention and Perception: Attention normal. Mood and Affect: Affect is flat. Behavior: Behavior is slowed. 24 hour intake/output: Intake/Output Summary (Last 24 hours) at 10/10/2023 1006 Last data filed at 10/10/2023 0552 Gross per 24 hour Intake 351.67 ml Output 0 ml Net 351.67 ml Diet: Adult diet Regular; Isolation Tray (Disposables); 5 carb choices (75 gm/meal) Medications (as per EMR): HomeMeds: Current Outpatient Medications Medication Instructions acetaminophen (TYLENOL) 650 mg, Oral, Every 4 hours PRN ARIPiprazole (Abilify) 10 MG tablet Every 24 hours aspirin 81 MG EC tablet 1 tablet, Oral, Daily atorvastatin (Lipitor) 10 MG tablet 1 tablet, Oral, Daily bisacodyl (DULCOLAX) 5 mg, Oral, 2 times daily PRN, Do not crush, chew, or split. cinnamon 2,000 mg, Oral, Daily clotrimazole (Lotrimin) 1 % cream Topical, 2 times daily dilTIAZem CD (CARDIZEM CD) 180 mg, Oral, Daily dulaglutide (TRULICITY) 4.5 mg, SubCUTAneous, Weekly, Every FLUoxetine (PROZAC) 40 mg, Oral, Daily gabapentin (NEURONTIN) 100 mg, Oral, 2 times daily insulin regular (HumuLIN R U-500 KWIKPEN) 500 UNIT/ML CONCENTRATED injection SubCUTAneous, 3 times daily, 285 units before breakfast/260 units before lunch/285 units before dinner Lactobacillus Acid-Pectin (Acidophilus/Rosemead Pectin) tablet 1 tablet, Oral, 2 times daily lisinopril 40 MG tablet Every 24 hours Loratadine 10 MG capsule Oral magnesium hydroxide (Milk of Magnesia Concentrate) 2400 MG/10ML suspension suspension Every 24 hours megestrol (Megace) 20 MG tablet 1 tablet, Oral, 2 times daily melatonin 10 mg, Oral, Nightly PRN metoclopramide (REGLAN) 10 mg, Oral, 4 times daily metoprolol tartrate (Lopressor) 25 MG tablet 1 tablet, Oral, 2 times daily miconazole (Micotin) 2 % powder Topical, 2 times daily ondansetron (ZOFRAN) 4 mg, Oral, Every 6 hours PRN pantoprazole (PROTONIX) 40 mg, Oral polyethylene glycol (PEG) 3350 (GLYCOLAX) 17 g, Oral, Daily potassium chloride CR (K-Tab) 20 MEQ ER tablet Every 24 hours Scheduled Meds:ARIPiprazole, 10 mg, Oral, q24h aspirin, 81 mg, Oral, Daily atorvastatin, 10 mg, Oral, Nightly clotrimazole, , Topical, BID dilTIAZem CD, 180 mg, Oral, Daily enoxaparin, 30 mg, SubCUTAneous, 2 times per day FLUoxetine, 40 mg, Oral, Daily gabapentin, 100 mg, Oral, BID influenza, 0.5 mL, IntraMUSCular, Once [Held by provider] lisinopril, 40 mg, Oral, q24h megestrol, 20 mg, Oral, BID melatonin, 10 mg, Oral, Nightly metoclopramide, 10 mg, Oral, 4x daily metoprolol tartrate, 25 mg, Oral, BID pantoprazole, 40 mg, Oral, qAM AC piperacillin-tazobactam, 3,375 mg, IntraVENous, q8h polyethylene glycol (PEG) 3350, 17 g, Oral, Daily Continuous Infusions:sodium chloride, 75 mL/hr, Last Rate: 75 mL/hr (10/10/23 0548) PRN Meds:PRN medications: acetaminophen, dextrose, dextrose, glucagon (rDNA), glucose, ondansetron, polyethylene glycol (PEG) 3350 Diagnostic Workup: I reviewed pertinent Laboratory results, Radiographic results, and Other Clinical Notes at the time of today's encounter. Labs: No components found for: LABA1C No components found for: "EAG" Lab Results Component Value Date NA 130 (L) 10/09/2023 K 4.5 10/09/2023 CL 98 10/09/2023 CO2 23 10/09/2023 BUN 23 10/09/2023 CREATININE 0.76 10/09/2023 GLUCOSE 45 (LL) 10/10/2023 CALCIUM 8.7 10/09/2023 Lab Results Component Value Date CHLPL 125 08/29/2020 Lab Results Component Value Date TRIG 190 08/29/2020 Lab Results Component Value Date HDL 31 (A) 08/29/2020 Lab Results Component Value Date LDLCALC 56 08/29/2020 Lab Results Component Value Date VLDL 38 08/29/2020 No results found for: CHOLHDLRATIO No results found for: [id number] Lab Results Component Value Date TSH 2.356 11/26/2020 Radiology reportsas per the Radiologist Radiology: CT abdomen pelvis w contrast Result Date: 10/08/2023 [facility] 1965 [id number] Exam Date/Time: 10/08/2023 09:36 Procedure: CT ABDOMEN PELVIS W CONTRAST Ordering Provider: ROBERTSON MEREDITH Reason For Exam: Nausea/vomiting CT ABDOMEN AND PELVIS WITH CONTRAST CLINICAL INDICATION: Nausea and vomiting. TECHNIQUE: Multi-axial 3mm sections through the abdomen and pelvis following 75 mL of Isoview contrast media. No oral contrast was administered. Coronal and sagittal reconstructions were reviewed. Dose reduction was employed with automated exposure control. COMPARISON: 08/17/2023. FINDINGS: Lower thorax: Patchy opacities in the right lung base. Otherwise unremarkable. Stomach: Unremarkable. Liver: Normal size and contours. The liver demonstrates generalized diminished attenuation as compared to the spleen, compatible with hepatic steatosis. No focal lesion. Biliary tree: Hyperdensity within the gallbladder lumen, suggestive of sludge and/or cholelithiasis. No pericholecystic inflammatory change by CT. No biliary dilatation. Spleen: Normal. Adrenals: Normal. Pancreas: Normal. Kidneys: Symmetric contrast enhancement without evidence of hydronephrosis. No focal renal lesion is identified. Free air or fluid: None. Mesenteric/retroperitoneal: No adenopathy or inflammation. Aorta: Normal caliber of aorta and bilateral common iliac arteries. Bowel: No inflammatory changes in the right lower quadrant. No inflammatory change or bowel dilatation is noted. Urinary bladder: Unremarkable. Abdominal wall/soft tissues: No ventral hernia is evident. Pelvic organs/viscera: The uterus is present. Inguinal: No lymphadenopathy. Osseous structures: Advanced multilevel thoracolumbar spine degenerative changes including DISH. Advanced bilateral hip osteoarthritis. 1. No evidence of acute infectious or inflammatory process in the abdomen or pelvis. 2. The liver demonstrates generalized diminished attenuation as compared to the spleen, compatible with hepatic steatosis. 3. Hyperdensity within the gallbladder lumen, suggestive of sludge and/or cholelithiasis; consider right upper quadrant ultrasound. 4. Patchy opacities in the right lung base. Report Dictated on Electronically Signed By: Bao Hill MD Electronically Signed Date/Time: 10/08/2023 10:23 AM EST XR chest 1 view Result Date: 10/07/2023 Patient Name: WILL JACINTO : 1965 Exam Date/Time: 10/07/2023 07:31 Procedure: XR CHEST 1 VIEW Ordering Provider: MUSTAFA KATHRYN Reason For Exam: altered, hypoglyc CHEST (Frontal View) History: Hypoglycemia, change in mental status Comparison: 08/08/2023 Findings: Frontal chest view shows diminished lung volume with interstitial prominence and small linear basilar atelectasis without acute infiltrate or overt congestion. The heart is normal in size. There is no mediastinal widening, sizable pleural effusion, or other significant change from last exam. There is spondylosis. Chronic findings. No appreciable acute pulmonary process. Report Dictated on Electronically Signed By: Angel Randhawa MD Electronically Signed Date/Time: 10/07/2023 7:[address] head wo IV contrast Result Date: 10/07/2023 Patient Name: WILL JACINTO : 1965 Exam Date/Time: 10/07/2023 07:29 Procedure: CT HEAD WO IV CONTRAST Ordering Provider: MUSTAFA KATHRYN Reason For Exam: AMS UNENHANCED HEAD CT History: Change in mental status Comparison: None available Technique: Multislice axial CT sections obtained from the base to the vertex of the brain without IV contrast enhancement. Multiplanar sagittal and coronal reconstructed images also obtained. Dose reduction employed with automated exposure control. Findings: There is mild parenchymal loss with prominent cortical sulci and fissures, not unusual for age. The ventricles are normal in size for age. There is no intracranial hemorrhage, midline shift, or other mass effect in the brain. The exam is limited without contrast enhancement. There are mild carotid siphon calcifications. The paranasal sinuses and bilateral mastoid air cells are clear. There is spondylosis with prominent calcific/ossific densities at the cervical cranial and C1-C2 junction that are not adequately visualized for proper evaluation. Mild parenchymal volume loss. No evidence of acute intracranial process. 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 other toe(s), unspecified side (HCC) Anxiety disorder Bipolar 1 disorder ([facility]) Blood circulation, collateral Cellulitis chronic L lower leg COVID 12/08/2021 Depression Diabetes mellitus ([facility]) Type II, on insulin Disease of blood and blood forming organ Endometrial carcinoma (HCC) 11/25/2020 Endometrial hyperplasia Foot ulcer ([facility]) Hx of blood clots RLE prior to amputation Hyperlipidemia Hypertension Lymphedema 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, RLE Morbidly obese ([facility]) Muscle weakness Osteomyelitis (HCC) Osteomyelitis (HCC) 2019 RLE Other lack of coordination Other specified soft tissue disorders Other symbolic dysfunctions Schizophrenia ([facility]) Sleep apnea no CPAP Venous insufficiency Past Surgical History: Past Surgical History: Procedure Laterality Date ABCESS DRAINAGE Right 09/09/2018 FOOT; ACH COLONOSCOPY 09/19/[address] Hyde DILATION AND CURETTAGE OF UTERUS 05/18/2019 HYSTEROSCOPY 12/23/2021 LEG AMPUTATION THROUGH KNEE Right 06/16/2019 UPPER GASTROINTESTINAL ENDOSCOPY N/A 06/29/2023 Dr Sergio Sibley at [facility]; no specimens WISDOM TOOTH EXTRACTION Allergy(ies): No Known Allergies Family History: Family History Problem Relation Name Age of Onset No Known Problems Mother No Known Problems Father Social History: Social History Tobacco Use Smoking status: Never Smokeless tobacco: Never Vaping Use Vaping Use: Never used Substance Use Topics Alcohol use: No Drug use: Never Portions of the information within this encounter were entered using an electronic dictation system. Best attempts were made to edit/proofread the information prior to note completion. Despite the review of information, some errors may remain. If there are questions related to the information contained within the note please contact the signing physician directly. I spent 35 minutes with the pt which involved coordination of care, medical evaluation, review of records, and/or counseling of the pt regarding his/her condition/disease state/prognosis on the date of this note. [facility] Respiratory Care Department Progress Note Comment or reasoning for refusal: Patient was seen in attempts to fulfill CPAP/BiPAP/AutoPAP order. Patient refused PAP therapy/study at this time. Patient was educated on medical need and reasoning for physician order to ensure patient was making an informed medical decision. All of the patient's questions were answered at this time and patient was informed that if the patient changes their mind regarding wearing PAP to hit their "call light" or inform their nurse to contact Respiratory. A second, consecutive night of refusing PAP therapy/study results in order completion in the EMR. If future CPAP/BiPAP/AutoPAP therapy or study is indicated please place another order in the EMR and the assigned Respiratory Therapist will reattempt to fulfill orders. Reason for refusal: pt refusing, stating he doesn't wear pap at home. Thank you for involving Respiratory in the care of this patient, Patient has not urinate today, denies the urge to void. Bladder scan revealed 329mL. Dr. Olmstead notified, told to repeat bladder scan in 4 hours if patient has not voided. Will continue to monitor. .Nutrition rescreen completed. Patient referred to the Dietitian. Poor po intake.CONCHITA Vargas Images from the original note were not included. Hospitalist Progress Note Subjective: Admit Date: 10/07/2023 PCP: Jared Guzman Room#: [id number]/[id number] A Interval History: PT reports nausea, vomiting improved, no diarrhea, abd pain improved since admission, LLE erythema has been present for many years, no pain in his LLE. Pt appears more sleepy today, but answering questions appropriately, no other complaints. Adult diet Full liquid; Isolation Tray (Disposables); 5 carb choices (75 gm/meal) @[id number]@ 24HR INTAKE/OUTPUT: Intake/Output Summary (Last 24 hours) at 10/09/2023 1144 Last data filed at 10/09/2023 0856 Gross per 24 hour Intake 250 ml Output 1600 ml Net -1350 ml 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 other toe(s), unspecified side (HCC) Anxiety disorder Bipolar 1 disorder ([facility]) Blood circulation, collateral Cellulitis chronic L lower leg COVID 12/08/2021 Depression Diabetes mellitus ([facility]) Type II, on insulin Disease of blood and blood forming organ Endometrial carcinoma ([facility]) 11/25/2020 Endometrial hyperplasia Foot ulcer ([facility]) Hx of blood clots RLE prior to amputation Hyperlipidemia Hypertension Lymphedema 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, RLE Morbidly obese ([facility]) Muscle weakness Osteomyelitis (HCC) Osteomyelitis (HCC) 2019 RLE Other lack of coordination Other specified soft tissue disorders Other symbolic dysfunctions Schizophrenia ([facility]) Sleep apnea no CPAP Venous insufficiency LABS: CBC: Recent Labs 10/07/2362610/08/23 030 WBC 13.3* 10.1 RBC 4.75 3.72 HGB 13.2 10.6* HCT 41.5 31.6 MCV 87.4 84.9 RDW 14.2 15.7* PLT 438 339 BMP: Recent Labs 10/07/2362610/08/23 03010/09/23 0903 NA 138 130* 130* K 4.4 4.2 4.5 CL 100 100 98 CO2 27 22 23 BUN 20 34 23 CREATININE 0.74 1.09 0.76 GLUCOSE 120* 288* 344* CALCIUM 8.8 8.1* 8.7 ANIONGAP 11 8 9 LIVER PROFILE: Recent Labs 10/07/2362610/08/23 030 AST 36 33 ALT 46 42 BILITOT 0.4 0.9 ALKPHOS 133* 143* PROT 7.7 5.9* PT/INR: No results for input(s): "PROTIME", "INR" in the last 72 hours. CARDIAC ENZYMES: No results for input(s): "TROPONINI" in the last 72 hours. Procalcitonin: Lab Results Component Value Date PROCAL 0.83 (H) 10/07/2023 COVID-19 PCR: No results for input(s): "COVID19" in the last 72 hours. Objective: Vitals: BP 121/57 (BP Location: Right arm, Patient Position: Lying) Pulse 78 Temp 36.4 C (97.6 F) (Temporal) Resp 20 Ht 5' 6" (1.676 m) Wt (!) 316 lb (143 kg) SpO2 95% BMI 51.00 kg/m Pulse Ox: SpO2 Av % Min: 93 % Max: 97 % Supplemental O2: Patient is alert, awake, OBESE Heart S1 S2 No murmurs Lungs clear to auscultation Abdomen soft , mild tenderness in RUQ, non distended no organomegaly No pedal edema, no cyanosis, ERYTHEMA POS L mid lower leg, R above knee amputation Medications: ARIPiprazole, 10 mg, Oral, q24h aspirin, 81 mg, Oral, Daily atorvastatin, 10 mg, Oral, Nightly clotrimazole, , Topical, BID dilTIAZem CD, 180 mg, Oral, Daily enoxaparin, 30 mg, SubCUTAneous, 2 times per day FLUoxetine, 40 mg, Oral, Daily gabapentin, 100 mg, Oral, BID influenza, 0.5 mL, IntraMUSCular, Once insulin regular, 100 Units, SubCUTAneous, TID WC lisinopril, 40 mg, Oral, q24h megestrol, 20 mg, Oral, BID melatonin, 10 mg, Oral, Nightly metoclopramide, 10 mg, Oral, 4x daily metoprolol tartrate, 25 mg, Oral, BID pantoprazole, 40 mg, Oral, qAM AC piperacillin-tazobactam, 3,375 mg, IntraVENous, q8h polyethylene glycol (PEG) 3350, 17 g, Oral, Daily Assessment Sepsis- resolving Acute metabolic encephalopathy Hypoglycemia LLE erythema- likely not cellulits, mrsa panel pos, will await ID recs for vancomycin Nausea/vomiting- resolved John- will order cpap at night Plan - blood cultures pos for GNB, pending ID, will continue zosyn, ID consult pending, source unknown, ? GB etiology, urine looks clean - MRSA Panel pos but no signs of cellulitis, will dc vanc, await ID recs - hypoglycemic protocol - ct abd shows biliary sludge, us gall bladder pos for gall stones, no signs of cholecystitis at this time, caldwell's neg - pt able to tolerate diet at this time -am labs, replace lytes prn -increase activity -DVT prophylaxis: [] Lovenox [] Heparin [] SCDs [x] Encourage ambulation [] Already on Anticoagulation Advance Directive: Full Code Anticipated Discharge - Date - 10/11/2023 - Location - Skilled Facility - Pending the following - clinical improvement Toxic drug monitoring/narrow therapeutic index drug monitoring : # Drug name : # Route administered : # Method of monitoring : Mayda Olmstead MD 10[facility]09/2023 [facility] [place]: [phone] Vancomycin therapy has been discontinued by Skylar Larkin PA-C on 10/09/23. Thank you for the consult. Pharmacy signing off for vancomycin dosing. Thais Esqueda RPh, PharmD Date: 10/09/23 Time: 11:39 AM Department of Internal Medicine Division of Endocrinology, Diabetes, & Metabolism Endocrinology Note Patient Name: Will Jacinto : 1965 AGE: 57 y.o. Room[facility]Bed: [facility] Admission Date: 10/07/2023 Visit Date: 10/09/2023 Reason for Endocrine Consult: U-500 dosing, hypoglycemia Provider/Team Requesting Consult: YUNIER PCP: Jared Guzman Outpt District Sales Coordinator: Dr. Lee ASSESSMENT: Type 2 diabetes with hypoglycemia and long-term insulin use Abdominal pain with nausea and vomiting under evaluation Diabetic polyneuropathy Gastroparesis Morbid obesity-BMI Hypertension Hyperlipidemia PLAN: It is likely that patient had hypoglycemia on presentation in view of taking usual dose of U-500 in the setting of poor p.o. intake Current sugars are significant for hyperglycemia-Increase U 500 to 120 units tid with meals May need to increase dose further once diet is advanced ICU goal <180 GMF goal <150 POCT BG ACHS Hypoglycemia per protocol Carb controlled diet ANTICIPATED ENDOCRINE HOME GOING RECOMMENDATIONS: Optimized for Discharge from Endocrine standpoint: No Home Going Endocrine Rx Recommendations-- U 500 Insulin doses to be decided Trulicity-to be decided Outpt Follow Up-- 10/27/2023 SUBJECTIVE/HPI: CHIEF COMPLAINT: Chief Complaint Patient presents with Hypoglycemia Patient is a 57-year-old transgender male with history of type 2 diabetes, hypertension, hyperlipidemia, diabetic polyneuropathy, s/p right AKA and [facility] for [facility]/unresponsiveness. Patient had received 260 units of U-500 with lunch and 285 units with dinner , but did not eat much of dinner and was found to be unresponsive and diaphoretic at 4:45 in the morning. Per notes patient has had poor p.o. intake for the 4 days before admission in addition to nausea and vomiting. Type of DM: 2 Onset of DM: 1991 Home DM Medication Regimen: U-500 insulin - 285 units before breakfast/260 units before lunch/285 units before dinner , Trulicity 4.5 mg weekly DM control (last A1c/glucose data): 7.7% on current admission Patient was seen at bedside Doing okay GI symptoms are better today Appetite is fair Glucose Date/Time Value Ref Range Status 10/09/2023 07:42 AM 337 (H) 70 - 100 mg/dL Final Comment: Caregiver Notified; 10/08/2023 09:06 PM 373 (H) 70 - 100 mg/dL Final 10/08/2023 04:38 PM 348 (H) 70 - 100 mg/dL Final 10/08/2023 11:40 AM 386 (H) 70 - 100 mg/dL Final 10/08/2023 07:53 AM 271 (H) 70 - 100 mg/dL Final 10/07/2023 08:27 PM 267 (H) 70 - 100 mg/dL Final Review of Systems ROS negative except for those mentioned in HPI. OBJECTIVE: Vitals: 10/08/23 1852 10/08/23 2114 10/09/23 0206 10/09/23 0552 BP: (!) 178/83 (!) 156/88 (!) 178/86 120/61 BP Location: Right arm Right arm Right arm Patient Position: Lying Sitting Lying Pulse: 89 98 98 82 Resp: 24 16 Temp: 36.6 C (97.8 F) 36.3 C (97.4 F) (!) 35.8 C (96.4 F) TempSrc: Temporal Temporal Temporal SpO2: 96% 93% 95% Weight: Height: Physical Exam Vitals and nursing note reviewed. Constitutional: Appearance: Normal appearance. He is obese. HENT: Head: Normocephalic and atraumatic. Cardiovascular: Rate and Rhythm: Normal rate and regular rhythm. Pulmonary: Effort: Pulmonary effort is normal. Abdominal: General: There is distension. Musculoskeletal: General: Swelling present. Comments: Left lower extremity venous stasis changes noted Right AKA Skin: General: Skin is dry. Neurological: General: No focal deficit present. Mental Status: He is alert and oriented to person, place, and time. Psychiatric: Attention and Perception: Attention normal. Behavior: Behavior is slowed. 24 hour intake/output: Intake/Output Summary (Last 24 hours) at 10/09/2023 1016 Last data filed at 10/09/2023 0545 Gross per 24 hour Intake -- Output 1600 ml Net -1600 ml Diet: Adult diet Full liquid; 5 carb choices (75 gm/meal) Medications (as per EMR): HomeMeds: Current Outpatient Medications Medication Instructions acetaminophen (TYLENOL) 650 mg, Oral, Every 4 hours PRN ARIPiprazole (Abilify) 10 MG tablet Every 24 hours aspirin 81 MG EC tablet 1 tablet, Oral, Daily atorvastatin (Lipitor) 10 MG tablet 1 tablet, Oral, Daily bisacodyl (DULCOLAX) 5 mg, Oral, 2 times daily PRN, Do not crush, chew, or split. cinnamon 2,000 mg, Oral, Daily clotrimazole (Lotrimin) 1 % cream Topical, 2 times daily dilTIAZem CD (CARDIZEM CD) 180 mg, Oral, Daily dulaglutide (TRULICITY) 4.5 mg, SubCUTAneous, Weekly, Every FLUoxetine (PROZAC) 40 mg, Oral, Daily gabapentin (NEURONTIN) 100 mg, Oral, 2 times daily insulin regular (HumuLIN R U-500 KWIKPEN) 500 UNIT/ML CONCENTRATED injection SubCUTAneous, 3 times daily, 285 units before breakfast/260 units before lunch/285 units before dinner Lactobacillus Acid-Pectin (Acidophilus/Rosemead Pectin) tablet 1 tablet, Oral, 2 times daily lisinopril 40 MG tablet Every 24 hours Loratadine 10 MG capsule Oral magnesium hydroxide (Milk of Magnesia Concentrate) 2400 MG/10ML suspension suspension Every 24 hours megestrol (Megace) 20 MG tablet 1 tablet, Oral, 2 times daily melatonin 10 mg, Oral, Nightly PRN metoclopramide (REGLAN) 10 mg, Oral, 4 times daily metoprolol tartrate (Lopressor) 25 MG tablet 1 tablet, Oral, 2 times daily miconazole (Micotin) 2 % powder Topical, 2 times daily ondansetron (ZOFRAN) 4 mg, Oral, Every 6 hours PRN pantoprazole (PROTONIX) 40 mg, Oral polyethylene glycol (PEG) 3350 (GLYCOLAX) 17 g, Oral, Daily potassium chloride CR (K-Tab) 20 MEQ ER tablet Every 24 hours Scheduled Meds:ARIPiprazole, 10 mg, Oral, q24h aspirin, 81 mg, Oral, Daily atorvastatin, 10 mg, Oral, Nightly clotrimazole, , Topical, BID dilTIAZem CD, 180 mg, Oral, Daily enoxaparin, 30 mg, SubCUTAneous, 2 times per day FLUoxetine, 40 mg, Oral, Daily gabapentin, 100 mg, Oral, BID influenza, 0.5 mL, IntraMUSCular, Once insulin regular, 100 Units, SubCUTAneous, TID WC lisinopril, 40 mg, Oral, q24h megestrol, 20 mg, Oral, BID melatonin, 10 mg, Oral, Nightly metoclopramide, 10 mg, Oral, 4x daily metoprolol tartrate, 25 mg, Oral, BID pantoprazole, 40 mg, Oral, qAM AC piperacillin-tazobactam, 3,375 mg, IntraVENous, q8h polyethylene glycol (PEG) 3350, 17 g, Oral, Daily vancomycin, 1,500 mg, IntraVENous, q12h Continuous Infusions: PRN Meds:PRN medications: acetaminophen, dextrose, dextrose, glucagon (rDNA), glucose, ondansetron, polyethylene glycol (PEG) 3350 Diagnostic Workup: I reviewed pertinent Laboratory results, Radiographic results, and Other Clinical Notes at the time of today's encounter. Labs: No components found for: LABA1C No components found for: "EAG" Lab Results Component Value Date NA 130 (L) 10/09/2023 K 4.5 10/09/2023 CL 98 10/09/2023 CO2 23 10/09/2023 BUN 23 10/09/2023 CREATININE 0.76 10/09/2023 GLUCOSE 344 (H) 10/09/2023 CALCIUM 8.7 10/09/2023 Lab Results Component Value Date CHLPL 125 08/29/2020 Lab Results Component Value Date TRIG 190 08/29/2020 Lab Results Component Value Date HDL 31 (A) 08/29/2020 Lab Results Component Value Date LDLCALC 56 08/29/2020 Lab Results Component Value Date VLDL 38 08/29/2020 No results found for: CHOLHDLRATIO No results found for: [id number] Lab Results Component Value Date TSH 2.356 11/26/2020 Radiology reportsas per the Radiologist Radiology: CT abdomen pelvis w contrast Result Date: 10/08/2023 [facility] 1965 [id number] Exam Date/Time: 10/08/2023 09:36 Procedure: CT ABDOMEN PELVIS W CONTRAST Ordering Provider: ROBERTSON MEREDITH Reason For Exam: Nausea/vomiting CT ABDOMEN AND PELVIS WITH CONTRAST CLINICAL INDICATION: Nausea and vomiting. TECHNIQUE: Multi-axial 3mm sections through the abdomen and pelvis following 75 mL of Isoview contrast media. No oral contrast was administered. Coronal and sagittal reconstructions were reviewed. Dose reduction was employed with automated exposure control. COMPARISON: 08/17/2023. FINDINGS: Lower thorax: Patchy opacities in the right lung base. Otherwise unremarkable. Stomach: Unremarkable. Liver: Normal size and contours. The liver demonstrates generalized diminished attenuation as compared to the spleen, compatible with hepatic steatosis. No focal lesion. Biliary tree: Hyperdensity within the gallbladder lumen, suggestive of sludge and/or cholelithiasis. No pericholecystic inflammatory change by CT. No biliary dilatation. Spleen: Normal. Adrenals: Normal. Pancreas: Normal. Kidneys: Symmetric contrast enhancement without evidence of hydronephrosis. No focal renal lesion is identified. Free air or fluid: None. Mesenteric/retroperitoneal: No adenopathy or inflammation. Aorta: Normal caliber of aorta and bilateral common iliac arteries. Bowel: No inflammatory changes in the right lower quadrant. No inflammatory change or bowel dilatation is noted. Urinary bladder: Unremarkable. Abdominal wall/soft tissues: No ventral hernia is evident. Pelvic organs/viscera: The uterus is present. Inguinal: No lymphadenopathy. Osseous structures: Advanced multilevel thoracolumbar spine degenerative changes including DISH. Advanced bilateral hip osteoarthritis. 1. No evidence of acute infectious or inflammatory process in the abdomen or pelvis. 2. The liver demonstrates generalized diminished attenuation as compared to the spleen, compatible with hepatic steatosis. 3. Hyperdensity within the gallbladder lumen, suggestive of sludge and/or cholelithiasis; consider right upper quadrant ultrasound. 4. Patchy opacities in the right lung base. Report Dictated on Electronically Signed By: Bao Hill MD Electronically Signed Date/Time: 10/08/2023 10:23 AM EST XR chest 1 view Result Date: 10/07/2023 Patient Name: WILL JACINTO : 1965 Exam Date/Time: 10/07/2023 07:31 Procedure: XR CHEST 1 VIEW Ordering Provider: MUSTAFA KATHRYN Reason For Exam: altered, hypoglyc CHEST (Frontal View) History: Hypoglycemia, change in mental status Comparison: 08/08/2023 Findings: Frontal chest view shows diminished lung volume with interstitial prominence and small linear basilar atelectasis without acute infiltrate or overt congestion. The heart is normal in size. There is no mediastinal widening, sizable pleural effusion, or other significant change from last exam. There is spondylosis. Chronic findings. No appreciable acute pulmonary process. Report Dictated on Electronically Signed By: Angel Randhawa MD Electronically Signed Date/Time: 10/07/2023 7:[address] head wo IV contrast Result Date: 10/07/2023 Patient Name: WILL JACINTO : 1965 Exam Date/Time: 10/07/2023 07:29 Procedure: CT HEAD WO IV CONTRAST Ordering Provider: MUSTAFA KATHRYN Reason For Exam: AMS UNENHANCED HEAD CT History: Change in mental status Comparison: None available Technique: Multislice axial CT sections obtained from the base to the vertex of the brain without IV contrast enhancement. Multiplanar sagittal and coronal reconstructed images also obtained. Dose reduction employed with automated exposure control. Findings: There is mild parenchymal loss with prominent cortical sulci and fissures, not unusual for age. The ventricles are normal in size for age. There is no intracranial hemorrhage, midline shift, or other mass effect in the brain. The exam is limited without contrast enhancement. There are mild carotid siphon calcifications. The paranasal sinuses and bilateral mastoid air cells are clear. There is spondylosis with prominent calcific/ossific densities at the cervical cranial and C1-C2 junction that are not adequately visualized for proper evaluation. Mild parenchymal volume loss. No evidence of acute intracranial process. 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 Report Dictated on Electronically Signed By: Agnel Randhawa MD Electronically Signed Date/Time: 10/07/2023 7:47 AM EST History/Other: 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 other toe(s), unspecified side (HCC) Anxiety disorder Bipolar 1 disorder ([facility]) Blood circulation, collateral Cellulitis chronic L lower leg COVID 12/08/2021 Depression Diabetes mellitus ([facility]) Type II, on insulin Disease of blood and blood forming organ Endometrial carcinoma (HCC) 11/25/2020 Endometrial hyperplasia Foot ulcer ([facility]) Hx of blood clots RLE prior to amputation Hyperlipidemia Hypertension Lymphedema 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; no specimens WISDOM TOOTH EXTRACTION Allergy(ies): No Known Allergies Family History: Family History Problem Relation Name Age of Onset No Known Problems Mother No Known Problems Father Social History: Social History Tobacco Use Smoking status: Never Smokeless tobacco: Never Vaping Use Vaping Use: Never used Substance Use Topics Alcohol use: No Drug use: Never Portions of the information within this encounter were entered using an electronic dictation system. Best attempts were made to edit/proofread the information prior to note completion. Despite the review of information, some errors may remain. If there are questions related to the information contained within the note please contact the signing physician directly. I spent 35 minutes with the pt which involved coordination of care, medical evaluation, review of records, and/or counseling of the pt regarding his/her condition/disease state/prognosis on the date of this note. Pharmacy Managed Vancomycin Dosing Service Progress Note Date: 10/09/23 Room:[facility]/[address] Patient Name: Will Jacinto Allergies: Patient has no known allergies. Age: 57 y.o. Sex: adult Ht: Height: 167.6 cm (5' 6") TBW: Weight: (!) 143 kg (316 lb) BMI: Body mass index is 51 kg/m . DW: 95.5 kg Calculated CrCl: >100 mL/min Lab Results Component Value Date CREATININE 1.09 10/08/2023 CREATININE 0.74 10/07/2023 CREATININE 1.00 08/19/2023 BUN 34 10/08/2023 BUN 20 10/07/2023 BUN 23 08/19/2023 WBC 10.1 10/08/2023 WBC 13.3 (H) 10/07/2023 WBC 8.6 08/19/2023 Trough: No results found for: VANCOTROUGH Random: Lab Results Component Value Date VANCORANDOM 11.5 (L) 10/09/2023 Infectious Diagnosis: Sepsis (goal AUC = 400-600 mg/L*hr) Antimicrobials: Patient recently received an antibiotic (last 12 hours) Date/Time Action Medication Dose Rate 10/09/23 0656 New Bag vancomycin (Vancocin) 1500 mg in NS 250 mL IVPB (compounded premix) 1,500 mg 125 mL/hr 10/09/23 0245 New Bag piperacillin-tazobactam (Zosyn) IVPB 3,375 mg 3,375 mg 12.5 mL/hr 10/08/23 2207 New Bag piperacillin-tazobactam (Zosyn) IVPB 3,375 mg 3,375 mg 12.5 mL/hr Assessment/Plan: Entered doses and random Vancomycin level into [employer]. Current dosing regimen is Vancomycin 1500 milligrams Q 12 hours has predicted AUC of 526 mg/L*hr. Continue current dosing regimen. Will obtain random Vancomycin level with morning labs on or before 10/16/23. Will continue to follow renal function closely. Please page/call with questions. Date: 10/09/23 Time: 7:20 AM Name: Thais Esqueda RPh, PharmD Phone: [phone] Images from the original note were not included. Hospitalist Progress Note Subjective: Admit Date: 10/07/2023 PCP: Jared Guzman Room#: [id number] Interval History: PT reports nausea, vomiting improved, no diarrhea, abd pain improved since admission, LLE erythema has been present for many years, no pain in his LLE. no other complaints. Adult diet Full liquid; 5 carb choices (75 gm/meal) @[id number]@ 24HR INTAKE/OUTPUT: Intake/Output Summary (Last 24 hours) at 10/08/2023 1402 Last data filed at 10/08/2023 0935 Gross per 24 hour Intake 660 ml Output 250 ml Net 410 ml 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 other toe(s), unspecified side (HCC) Anxiety disorder Bipolar 1 disorder ([facility]) Blood circulation, collateral Cellulitis chronic L lower leg COVID 12/08/2021 Depression Diabetes mellitus ([facility]) Type II, on insulin Disease of blood and blood forming organ Endometrial carcinoma (HCC) 11/25/2020 Endometrial hyperplasia Foot ulcer ([facility]) Hx of blood clots RLE prior to amputation Hyperlipidemia Hypertension Lymphedema 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, RLE Morbidly obese ([facility]) Muscle weakness Osteomyelitis (HCC) Osteomyelitis ([facility]) 2019 RLE Other lack of coordination Other specified soft tissue disorders Other symbolic dysfunctions Schizophrenia ([facility]) Sleep apnea no CPAP Venous insufficiency LABS: CBC: Recent Labs 10/07/23 0610/08/23 030 WBC 13.3* 10.1 RBC 4.75 3.72 HGB 13.2 10.6* HCT 41.5 31.6 MCV 87.4 84.9 RDW 14.2 15.7* PLT 438 339 BMP: Recent Labs 10/07/23 0627 10/08/23 030 NA 138 130* K 4.4 4.2 CL 100 100 CO2 27 22 BUN 20 34 CREATININE 0.74 1.09 GLUCOSE 120* 288* CALCIUM 8.8 8.1* ANIONGAP 11 8 LIVER PROFILE: Recent Labs 10/07/23 0610/08/23 0307 AST 36 33 ALT 46 42 BILITOT 0.4 0.9 ALKPHOS 133* 143* PROT 7.7 5.9* PT/INR: No results for input(s): "PROTIME", "INR" in the last 72 hours. CARDIAC ENZYMES: No results for input(s): "TROPONINI" in the last 72 hours. Procalcitonin: Lab Results Component Value Date PROCAL 0.83 (H) 10/07/2023 COVID-19 PCR: No results for input(s): "COVID19" in the last 72 hours. Objective: Vitals: BP 136/60 (BP Location: Right arm, Patient Position: Lying) Pulse 84 Comment: regular rate Temp 36.7 C (98 F) (Temporal) Resp 18 Ht 5' 6" (1.676 m) Wt (!) 316 lb (143 kg) SpO2 96% BMI 51.00 kg/m Pulse Ox: SpO2 Av % Min: 90 % Max: 100 % Supplemental O2: Patient is alert, awake, oriented x 3 OBESE Heart S1 S2 No murmurs Lungs clear to auscultation Abdomen soft , mild tenderness in RUQ, non distended no organomegaly No pedal edema, no cyanosis, ERYTHEMA POS L mid lower leg, R above knee amputation No focal neurological deficits Medications: ARIPiprazole, 10 mg, Oral, q24h aspirin, 81 mg, Oral, Daily atorvastatin, 10 mg, Oral, Nightly clotrimazole, , Topical, BID dilTIAZem CD, 180 mg, Oral, Daily enoxaparin, 30 mg, SubCUTAneous, 2 times per day FLUoxetine, 40 mg, Oral, Daily gabapentin, 100 mg, Oral, BID influenza, 0.5 mL, IntraMUSCular, Once insulin lispro, 0-18 Units, SubCUTAneous, TID WC And insulin lispro, 0-18 Units, SubCUTAneous, Nightly [Held by provider] insulin regular, 260 Units, SubCUTAneous, TID [Held by provider] liraglutide, 1.8 mg, SubCUTAneous, Daily lisinopril, 40 mg, Oral, q24h megestrol, 20 mg, Oral, BID melatonin, 10 mg, Oral, Nightly metoclopramide, 10 mg, Oral, 4x daily metoprolol tartrate, 25 mg, Oral, BID pantoprazole, 40 mg, Oral, qAM AC piperacillin-tazobactam, 3,375 mg, IntraVENous, q8h polyethylene glycol (PEG) 3350, 17 g, Oral, Daily vancomycin, 1,500 mg, IntraVENous, q12h Assessment Sepsis Acute metabolic encephalopathy Hypoglycemia LLE erythema- likely not cellulits, mrsa panel pos, will await ID recs for vancomycin Nausea/vomiting Plan - blood cultures pos for GNB, pending ID, will continue zosyn, consult ID - MRSA Panel ordered and pending, if neg will dc vanc, monitor bun and cr - hypoglycemic protocol - ct abd shows biliary sludge, will check us gall bladder to look for stones. - pt able to tolerate diet at this time -am labs, replace lytes prn -increase activity -DVT prophylaxis: [] Lovenox [] Heparin [] SCDs [x] Encourage ambulation [] Already on Anticoagulation Advance Directive: Full Code Anticipated Discharge - Date - 10/11/2023 - Location - Skilled Facility - Pending the following - clinical improvement Toxic drug monitoring/narrow therapeutic index drug monitoring : # Drug name : # Route administered : # Method of monitoring : Mayda Olmstead MD 10/08/2023 Division of Hospitalist Medicine [place] Medical [place] [place]: [phone] Pharmacy Managed Vancomycin Dosing Service Consult Note Recent Labs 10/07/23 0627 10/08/23 0307 BUN 20 34 CREATININE 0.74 1.09 Updated [employer]: [x] doses administered [x] SCr [] random level (to be drawn 12/2 AM) Current regimen vancomycin 1500 mg every 12 hours, predicted AUC = 538 mg/L*hr (goal 400-600 mg/L*hr) Note serum creatinine trend, continue to monitor renal function. AUC therapeutic. Continue current regimen. Will assess random level with morning labs 10/09 and adjust as appropriate. Will follow renal function closely. DATE: 10/08/23 Time: 8:10 AM Ezio Orr PharmD Available via Secure Chat/Baoku documented in this encounter [facility] 10-16-2023 Nurse Note Report called to [facility]. Nursing aware of transport time scheduled for 1929 ton. Pt aware of transport plans, agreeable. Blood sugar at 11 pm 117. At 0210 AM, patient was found to be diaphoretic and lethargic able to respond to verbal stimulation and was AOX3. Blood sugar checked. was 43. Doctor and Endocrine notified. Patient was given orange juice and 2 packets of oral glucose gel. Blood sugar rechecked at 022 was 49. D5W started per protocol. Lab verified blood glucose at 45. Recheck at 0248, was 67 Recheck at 0332, was 101. Patient is no longer diaphoretic or lethargic is alert. Per Endocrine, he was provided with a snack and is having no problems eating or staying awake. Patient will continue to be monitored. Patient arrived to 4W. Patient incontinent of urine. Incontinence care provided and purwick applied. Patient A& O x4. Tele monitor applied. Call light in reach. Physician paged for admit orders. documented in this encounter [facility] 10-16-2023 Hospital course Narrative Images from the original note were not included. Discharge Summary Will Jacinto : 1965 ADMIT DATE: 10/07/2023 DISCHARGE DATE: 10/16/2023 PRIMARY CARE PHYSICIAN: Jared Guzman VISIT STATUS: Admission CODE STATUS: Full Code DISCHARGE DIAGNOSES: Principal Problem: Hypoglycemia due to insulin Active Problems: Hypothermia, not associated with low environmental temperature Acinetobacter lwoffi infection Bacteremia due to Gram-negative bacteria Sepsis without acute organ dysfunction ([facility]) Diabetic gastroparesis associated with type 2 diabetes mellitus ([facility]) ([facility]) Type 2 diabetes mellitus with hyperglycemia, with long-term current use of insulin ([facility]) Class 3 severe obesity due to excess calories with serious comorbidity and body mass index (BMI) of 60.0 to 69.9 in adult ([facility]) HOSPITAL COURSE: Patient admitted 10/07/2023 for hypoglycemia 2/2 insulin use with poor PO intake, hypothermia, ?sepsis. 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 Initially presented from [facility] with hypoglycemia and unresponsiveness, POC glucose 36. Had been having poor PO intake 4-5 days d/t N/V and insulin had not been adjusted. On presentation he was hypothermic (91 F); mentation had not initially improved s/p resolution of hypoglycemia, but once warming was underway mentation was returning to baseline. Found to have blood cultures (+)Acinetobacter lwoffi (kelley-sens), and given (+)SIRS on presentation he likely did have sepsis POA. Symptoms improved on antibx, and endocrinology was heavily involved with adjusting patient's insulin regimen. Nausea improved significantly over course of the admission, though due to preexisting gastroparesis it did not fully resolve. Of note, erythematous-patch on distal left leg with appearance concerning for cellulitis, however this was evaluated multiple times and was stable throughout admission, and was determined to not be cellulitis. Source of the Acinetobacter was not identified. SIGNIFICANT DIAGNOSTIC STUDIES: CT Head w/o contrast: Mild parenchymal volume loss. No evidence of acute intracranial process. 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 CT Abd/Pelvis w/o contrast: 1. No evidence of acute infectious or inflammatory process in the abdomen or pelvis. 2. The liver demonstrates generalized diminished attenuation as compared to the spleen, compatible with hepatic steatosis. 3. Hyperdensity within the gallbladder lumen, suggestive of sludge and/or cholelithiasis; consider right upper quadrant ultrasound. 4. Patchy opacities in the right lung base. RUQ US: Gallstones. No definite acute biliary process. Consider follow-up or further evaluation. Limited due to body habitus and bowel gas. CONSULTANTS: Endocrinology Infectious diseases RECOMMENDED NEXT STEPS: Ertapenem last day 10/21, then remove PICC Recheck BMP in 3-days for renal function No GLP1 agents due to gastroparesis Will need ongoing insulin management through endocrinology DISCHARGE MEDICATIONS: Medication List START taking these medications ondansetron ODT 4 MG disintegrating tablet Commonly known as: Zofran-ODT Take 1 tablet (4 mg) by mouth every 8 hours as needed for nausea or vomiting. CHANGE how you take these medications * insulin regular 500 UNIT/ML CONCENTRATED injection Commonly known as: HumuLIN R U-500 Inject 150 Units under the skin daily with supper. What changed: You were already taking a medication with the same name, and this prescription was added. Make sure you understand how and when to take each. * insulin regular 500 UNIT/ML CONCENTRATED injection Commonly known as: HumuLIN R U-500 Inject 250 Units under the skin every morning (before breakfast). Do not start before October 17, 2023. Start taking on: October 17, 2023 What changed: how much to take when to take this additional instructions * insulin regular 500 UNIT/ML CONCENTRATED injection Commonly known as: HumuLIN R U-500 Inject 150 Units under the skin daily (before lunch). Start taking on: October 17, 2023 What changed: You were already taking a medication with the same name, and this prescription was added. Make sure you understand how and when to take each. lisinopril 40 MG tablet Take 0.5 tablets (20 mg) by mouth daily. What changed: how much to take how to take this when to take this * This list has 3 medication(s) that are the same as other medications prescribed for you. Read the directions carefully, and ask your doctor or other care provider to review them with you. CONTINUE taking these medications acetaminophen 325 MG tablet Commonly known as: Tylenol Acidophilus/Rosemead Pectin tablet ARIPiprazole 10 MG tablet Commonly known as: Abilify aspirin 81 MG EC tablet atorvastatin 10 MG tablet Commonly known as: Lipitor bisacodyl 5 MG EC tablet Commonly known as: Dulcolax cinnamon 500 MG capsule clotrimazole 1 % cream Commonly known as: Lotrimin Apply topically 2 times daily. dilTIAZem CD 180 MG 24 hr capsule Commonly known as: Cardizem CD FLUoxetine 40 MG capsule Commonly known as: PROzac gabapentin 100 MG capsule Commonly known as: Neurontin Loratadine 10 MG capsule megestrol 20 MG tablet Commonly known as: Megace melatonin 10 MG tablet metoprolol tartrate 25 MG tablet Commonly known as: Lopressor miconazole 2 % powder Commonly known as: Micotin Milk of Magnesia Concentrate 2400 MG/10ML suspension suspension Generic drug: magnesium hydroxide pantoprazole 40 MG EC tablet Commonly known as: ProtoNix polyethylene glycol (PEG) 3350 17 GM/SCOOP powder Commonly known as: Glycolax STOP taking these medications dulaglutide 4.5 MG/0.5ML solution pen-injector Commonly known as: Trulicity metoclopramide 10 MG tablet Commonly known as: Reglan ondansetron 4 MG tablet Commonly known as: Zofran potassium chloride CR 20 MEQ ER tablet Commonly known as: K-Tab Where to Get Your Medications Information about where to get these medications is not yet available Ask your nurse or doctor about these medications insulin regular 500 UNIT/ML CONCENTRATED injection insulin regular 500 UNIT/ML CONCENTRATED injection insulin regular 500 UNIT/ML CONCENTRATED injection lisinopril 40 MG tablet ondansetron ODT 4 MG disintegrating tablet DIET: Adult diet Regular; Isolation Tray (Disposables); 5 carb choices (75 gm/meal) ACTIVITY: Bedbound DISPOSITION: Skilled Facility FACILITY/HOME CARE AGENCY NAME: [facility] DISCHARGE TIME: 40 minutes SIGNED: Marcio Armando MD 10/16/2023, 5:31 PM See today's progress note for physical exam. documented in this encounter [facility] 10-16-2023 Miscellaneous Notes Discharge med list transmitted to [facility] via [facility]port per TCC request. Discharge order is in place, but contingent upon what pt's blood sugar will be at dinner. Tasked [facility] to send discharge paperwork to [facility]. Spoke with Nabil, CODE AND TEST CLERK at the facility to inform her of probable discharge at 6:30. TCC made CODE AND TEST CLERK aware the DC may be cancelled depending on his blood sugars tonight with dinner. CODE AND TEST CLERK verbalized understanding. Pt also made aware of probable dc back to [facility] tonight. TCC to follow and assist as needed. MAR and updated notes placed to [facility] via [facility]port per TCC request. Await review and response regarding ability to accept. TCC notified. TCC informed that pt can go back to [facility] as long as blood sugar is acceptable after dinner. Was asked to arrange transportation, under the assumption that pt will be discharged. Transportation set for 6:30 with [employer]'s. Transportation form on chart. Pt is LTC LOC and does not need 7000 or auth. Tasked [employer] to send MAR to facility. Once the discharge order in is place, we can send over the discharge paperwork. OPAT sent earlier for IV Ertapenem through 10/21/23. TCC to follow and assist as needed. Images from the original note were not included. Care Management Progress Note Pt remains on 4W. PICC - Invanz through 10/21. Order in Med[employer] tab. Glucose 528. Endocrine continues to follow. DCP: [facility] when clinically stable. TCC to follow. Discharge Milestones and Delays Expected Date/Time: 10/14/[address] discharge order Complete med reconciliation Case mgmt discharge readiness Clinical Stability Diagnsotic Workup Expected Discharge History Expected Date/Time Set By Reviewed At 10/14/2023 Herber Bradshaw RN 10/14/2023 7:30 AM 10/15/2023 Herber Bradshaw RN 10/13/2023 8:06 AM 10/14/2023 Herber Bradshaw RN 10/12/2023 7:58 AM 10/12/2023 Demetria Robertson RN 10/11/2023 8:45 AM 10/10/2023 Demetria Robertson RN 10/08/2023 9:05 AM 10/10/2023 Rosaura Mustafa, DO 10/07/2023 3:52 PM 10/10/2023 Rosaura Mustafa DO 10/07/2023 7:09 AM Length of Stay (Days): 8 GMLOS: 5.1 Endocrine note placed to [facility] via [facility]port per TCC request. Images from the original note were not included. Care Management Progress Note Pt remains on 4W. Positive blood cultures. PICC. Invanz Q24h until 10/21. Order in Media. Endocrine following, adjusting insulin improved to 250 this morning. [facility]: [facility] when clinically stable. TCC to follow. Discharge Milestones and Delays Expected Date/Time: 10/15/[address] discharge order Complete med reconciliation Case mgmt discharge readiness Clinical Stability Diagnsotic Workup Expected Discharge History Expected Date/Time Set By Reviewed At 10/15/2023 Herber Bradshaw RN 10/13/2023 8:06 AM 10/14/2023 Herber Bradshaw RN 10/12/2023 7:58 AM 10/12/2023 Demetria Robertson RN 10/11/2023 8:45 AM 10/10/2023 Demetria Robertson RN 10/08/2023 9:05 AM 10/10/2023 Rosaura Mustafa, DO 10/07/2023 3:52 PM 10/10/2023 Rosaura Mustafa, DO 10/07/2023 7:09 AM Length of Stay (Days): 7 GMLOS: 5.1 Problem: Safety - Adult Goal: Free from fall injury Outcome: Progressing Problem: Discharge Planning Goal: Discharge to home or other facility with appropriate resources Outcome: Progressing Problem: Chronic Conditions and Co-morbidities Goal: Patient's chronic conditions and co-morbidity symptoms are monitored and maintained or improved Outcome: Progressing Problem: Knowledge Deficit Goal: Patient/family/caregiver demonstrates understanding of disease process, treatment plan, medications, and discharge instructions Outcome: Progressing The patient is Moderately Unstable - Medium risk of patient condition declining or worsening The patient's goals for the shift include The clinical goals for the shift include Over the shift, the patient did not make progress toward the following goals. Barriers to progression include uncontrolled diabetes. Recommendations to address these barriers include constant monitoring. Called for pt lethargic and not responding appropriately. Upon assessment pt would slightly open eyes and mumble to verbal and physical stimuli, VSS, BGT stable. Attempted to draw ABG and pt woke up, A&Ox4, pleasant and appropriate. Covering physician at bedside as well, ABG cancelled for now. Bedside RN to call with further issues [facility] per TCC request. Images from the original note were not included. Care Management Progress Note Pt remains on 4W. Positive blood cultures. PICC. Invanz Q24h until 10/21. Order in Media. Na 129. Endocrine following, adjusting insulin. [facility]: [facility]. TCC to follow. Discharge Milestones and Delays Expected Date/Time: 10/15/[address] discharge order Complete med reconciliation Case mgmt discharge readiness Clinical Stability Diagnsotic Workup Expected Discharge History Expected Date/Time Set By Reviewed At 10/15/2023 Herber Bradshaw RN 10/13/2023 8:06 AM 10/14/2023 Herber Bradshaw RN 10/12/2023 7:58 AM 10/12/2023 Demetria Robertson RN 10/11/2023 8:45 AM 10/10/2023 Demetria Robertson RN 10/08/2023 9:05 AM 10/10/2023 Rosaura Mustafa DO 10/07/2023 3:52 PM 10/10/2023 Rosaura Mustafa DO 10/07/2023 7:09 AM Length of Stay (Days): 6 GMLOS: 5.1 The patient is Moderately Stable - Low risk of patient condition declining or worsening The patient's goals for the shift include The clinical goals for the shift include Over the shift, the patient did not make progress toward the following goals. Barriers to progression include Problem: Safety - Adult Goal: Free from fall injury Outcome: Progressing . Recommendations to address these barriers include Problem: Urinary Incontinence Goal: Perineal skin integrity is maintained or improved Outcome: Progressing . Problem: Urinary Incontinence Goal: Perineal skin integrity is maintained or improved Outcome: Progressing Problem: Urinary Incontinence Goal: Perineal skin integrity is maintained or improved Outcome: Progressing Problem: Urinary Incontinence Goal: Perineal skin integrity is maintained or improved Outcome: Progressing Images from the original note were not included. Care Management Progress Note Pt remains on 4W. Continues IV Unasyn. Plan for 14 day course on day 6. Endo, ID following. DC plan: return to [facility] when clinically stable. Bed hold, no auth needed to return. TCC to follow. Discharge Milestones and Delays Expected Date/Time: 10/12/[address] discharge order Complete med reconciliation Case mgmt discharge readiness Clinical Stability Diagnsotic Workup Expected Discharge History Expected Date/Time Set By Reviewed At 10/12/2023 Demetria Robertson RN 10/11/2023 8:45 AM 10/10/2023 Demetria Robertson RN 10/08/2023 9:05 AM 10/10/2023 Rosaura Mustafa DO 10/07/2023 3:52 PM 10/10/2023 Rosaura Mustafa DO 10/07/2023 7:09 AM Length of Stay (Days): 5 GMLOS: 4.1 Images from the original note were not included. Care Management Progress Note Continues IV ATB course. Infectious Disease following. Plan is return to [facility] when medically stable. Bed hold No auth needed to return. Discharge Milestones and Delays Expected Date/Time: 10/12/[address] discharge order Complete med reconciliation Case mgmt discharge readiness Clinical Stability Diagnsotic Workup Expected Discharge History Expected Date/Time Set By Reviewed At 10/12/2023 Demetria Robertson RN 10/11/2023 8:45 AM 10/10/2023 Demetria Robertson RN 10/08/2023 9:05 AM 10/10/2023 Rosaura Mustafa DO 10/07/2023 3:52 PM 10/10/2023 Rosaura Mustafa DO 10/07/2023 7:09 AM Length of Stay (Days): 4 GMLOS: 4.1 [facility] T[facility]. Await review and response regarding ability to accept. TCC notified. Care Managment Initial Assessment Date: 10/08/2023 Patient Name: Will Jacinto : 1965 Patient Information Source of Information: Patient Cognition/Language: Impaired Permission given to speak with patient scheduling representative/caregiver as indicated: Confirmation of Payer with patient/family: Payer Name: [facility] Golden: No Confirmation of Primary Care Physician: Primary Caregiver: If assistance needed, confirmed caregiver ready, willing and able to care for patient at discharge: Yes Confirmed with: Living Arrangements Current Residence: Number of Floors Number of Entry Steps: Bed/Bath Levels: Facility: [facility] Facility Name: [facility] Plan to Return: Yes Lives with: Alone Support Systems: Activities of Daily Living Ambulation: Assistance Bathing/Dressing: Assistance Elimination/Continence/Toileting : Feeding: Independent Who Assists with Activities of Daily Living: Instrumental Activities of Daily Living Prescription Coverage: Pharmacy Used: Medication Management: Transportation/Shopping: Assistance Provider Transportation Mode: Needs Assistance with Transportation at Discharge: Yes Meal Preparation: (ECF) Laundry/Cleaning: (ECF) Finances/Bill Paying: (ECF) Communication: Types of Care Services/Equipment Utilized Care Services: Dialysis Type: Durable Medical Equipment: Patient's Goal/Discharge Plan Patient expects to be discharged to: [facility]. Discharge Planning Actions: Patient's Choice Rights and [employer] and Collaborative Relationships Disclosed as Indicated for Post-Acute Care: Interdisciplinary Team Engagement: Social Work Referral for: Additional Information: [place] per patient. Lives at [facility]. Plan is return at discharge. [facility] Demetria Robertson RN Problem: Safety - Adult Goal: Free from fall injury Outcome: Progressing Problem: Discharge Planning Goal: Discharge to home or other facility with appropriate resources Outcome: Progressing Problem: Chronic Conditions and Co-morbidities Goal: Patient's chronic conditions and co-morbidity symptoms are monitored and maintained or improved Outcome: Progressing Problem: Knowledge Deficit Goal: Patient/family/caregiver demonstrates understanding of disease process, treatment plan, medications, and discharge instructions Outcome: Progressing Problem: Potential for Compromised Skin Integrity Goal: Skin Integrity is Maintained or Improved Outcome: Progressing The patient is Moderately Stable - Low risk of patient condition declining or worsening The patient's goals for the shift include The clinical goals for the shift include Over the shift, the patient did not make progress toward the following goals. Barriers to progression include unstable diabetic. Recommendations to address these barriers include monitor bglucose. documented in this encounter [facility] 10-13-2023 Hospital Discharg e instructions Gricelda Harding RN - 10/13/2023 1:05 PM EST Continuity of Care Form Patient Name: Will Jacinto : 1965 Admit date: 10/07/2023 Discharge date: 10/16/2023 Code Status Order: Full Code Advance Directives: N Admitting Physician: Ricardo Spring MD PCP: Jared Guzman Discharging Nurse: GRICELDA HARDING RN Discharging Hospital Unit/Room#: W4-429/W4-429 A Discharging Unit Emergency Contact: Extended Emergency Contact Information Primary Emergency Contact: Jovana Quesada (POA) Relation: Relative Secondary Emergency Contact: Carola Lubin Mobile Relation: Other Past Surgical History: Past Surgical History: Procedure Laterality Date ABCESS DRAINAGE Right 09/09/2018 FOOT; [facility] COLONOSCOPY 09/19/[address] Hyde DILATION AND CURETTAGE OF UTERUS 05/18/2019 HYSTEROSCOPY 12/23/2021 LEG AMPUTATION THROUGH KNEE Right 06/16/2019 UPPER GASTROINTESTINAL ENDOSCOPY N/A 06/29/2023 Dr Sergio Sibley at [facility]; no specimens WISDOM TOOTH EXTRACTION Immunization History: Immunization History Administered Date(s) Administered Covid-19, Pfizer Cazares Top, Do Not Dilute, (Age 12 Y+), Im, L 02/26/2022 Influenza, injectable, quadrivalent, preservative free 01/14/2019, 08/12/2021 Pfizer SARS-CoV-2 Vaccination 11/13/2020, 12/04/2020, 08/28/2021 Active Problems: Medical Problems Problem List * (Principal) Hypoglycemia Hypertension Chest pain Chest pain, unspecified type Upper abdominal pain Abdominal pain Endometrial carcinoma (HCC) Endometrial hyperplasia Diabetic hyperosmolar non-ketotic state (CMS/HCC) (HCC) Thickened endometrium Ileus (CMS/HCC) (HCC) Complex endometrial hyperplasia with atypia Diabetic gastroparesis associated with type 2 diabetes mellitus (CMS/HCC) ([facility]) Esophagitis Nausea and vomiting Hyperlipidemia Cellulitis and abscess of lower extremity Chronic acquired lymphedema Cellulitis Hyperandrogenism Uncontrolled type 2 diabetes mellitus with complication Chronic osteomyelitis (CMS/HCC) ([facility]) 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 ([facility]) Class 3 severe obesity due to excess calories with serious comorbidity and body mass index (BMI) of 50.0 to 59.9 in adult ([facility]) Type 2 diabetes mellitus with hyperglycemia, with long-term current use of insulin ([facility]) Hyperglycemia Post-menopausal bleeding Morbid obesity ([facility]) Left leg cellulitis Diabetic foot infection S/P AKA (above knee amputation) unilateral, right ([facility]) Class 3 severe obesity due to excess calories with serious comorbidity and body mass index (BMI) of 60.0 to 69.9 in adult ([facility]) Isolation/Infection: Contact MRSA, MDRO Nurse Assessment: Last Vital Signs: BP (!) 203/91 (BP Location: Left arm, Patient Position: Sitting) Pulse 90 Temp (!) 35.9 C (96.7 F) (Temporal) Resp 24 Ht 1.676 m (5' 6") Wt (!) 143 kg (316 lb) SpO2 96% BMI 51.00 kg/m Last documented pain score (0-10 scale): Last Weight: Wt Readings from Last 1 Encounters: 10/07/23 (!) 143 kg (316 lb) Mental Status: CHRISTY Patient Mental Status: oriented, alert, coherent, logical, thought processes intact, and able to concentrate and follow conversation IV Access: CHRISTY IV Access: PICC - site: upper arm right, condition patent and no redness, insertion date: 10/12/2023 Nursing Mobility/ADLs: Walking Total assistance Transfer Total assistance Bathing Total assistance Dressing Total assistance Toileting Total assistance Feeding Minimal assistance Structural Iron Erector Minimal assistance Med Delivery yes Wound Care Documentation and Therapy: Elimination: Continence: Bowel: no Bladder: no Urinary Catheter: None Colostomy/Ileostomy/Ileal Conduit: None Date of Last BM: 10/14/2023 Intake/Output Summary (Last 24 hours) at 10/13/2023 1259 Last data filed at 10/13/2023 0900 Gross per 24 hour Intake 900 ml Output 1950 ml Net -1050 ml I/O last 3 completed shifts: In: 2800 (19.5 mL/kg) [P.O.:2800] Out: 2500 (17.4 mL/kg) [Urine:2500 (0.5 mL/kg/hr)] Weight: 143.3 kg Safety Concerns: at risk for falls Impairments/Disabilities: none Nutrition Therapy: Current Nutrition Therapy: Oral diet: carb control 5 carbs/meal (2000kcals/day) and Oral nutrition supplement: standard twice a day Routes of Feeding: oral Liquids: thin liquids Daily Fluid Restriction: no Last Modified Barium Swallow with Video (Video Swallowing Test): not done Treatments at the Time of Hospital Discharge: Respiratory Treatments: NONE Oxygen Therapy: is not on home oxygen therapy. Ventilator: No ventilator support Rehab Therapies: physical therapy Weight Bearing Status/Restrictions: RIGHT AKA Other Medical Equipment (for information only, NOT a DME order): none Other Treatments: NONE Patient's personal belongings (please select all that are sent with patient): none RN SIGNATURE: MANAGEMENT/SOCIAL WORK SECTION Inpatient Status Date: 10/07/2023 Readmission Risk Assessment Score: @[email or web address]@ Discharging to Facility/ Agency Name: [facility] Address: [address] [place] [address] Dialysis Facility (if applicable) Name: Address: Dialysis Schedule: Phone: Fax: Education Consultant/Frame Bender signature: ICIAN SECTION Prognosis: good Condition at Discharge: stable Rehab Potential (if transferring to Rehab): poor Recommended Labs or Other Treatments After Discharge: Ertapenem last day 10/21, then remove PICC Recheck BMP in 3-days for renal function No GLP1 agents due to gastroparesis Will need ongoing insulin management through endocrinology Physician Certification: I certify the above information and transfer of Will Jacinto is necessary for the continuing treatment of the diagnosis listed and that he requires custodial facility for greater than 30 days. Update Admission H&P: No change in H&P PHYSICIAN SIGNATURE: documented in this encounter [facility] 10-12-2023 Procedure note Associated Ord er(s): PICC Insertion/Replacement PICC Insertion/Replacement Date/Time: 10/12/2023 12:32 PM Performed by: Funmi Askew MD Authorized by: Funmi Askew MD Consent: The indications, risks, benefits, alternatives to the procedure were explained to the patient/surrogate decision maker and their questions answered. Consent was obtained to proceed with the procedure. Timeout: Completed immediately prior to the start of the procedure which included verification of the correct patient, correct site and agreement on the procedure to be done. Indications: Indications: Long-term antibiotics Anesthetic: Local anesthetic used: lidocaine without epinephrine Procedure details: Preparation: Skin prepped with chlorhexidine Skin prep agent dried: Skin prep agent completely dried prior to procedure Sterile barriers: All five maximal sterile barriers used - gloves, gown, cap, mask and large sterile sheet Hand hygiene: Hand hygiene performed prior to central venous catheter insertion Sterile technique: Sterile technique maintained throughout procedure. Site prior to insertion: Benign Procedure type: Insertion Orientation: right Location: Cephalic Catheter type: Double lumen Catheter size: 5 Fr Lot #: [id number] Trimmed at (cm): 41 Inserted at (cm): 41 Ultrasound guidance: Yes Post-procedure: Post-procedure: Antimicrobial dressing applied and securement device Description/Findings: Flushes easily and blood returned Estimated blood loss: < 5 mL Specify complication(s): No apparent complications Follow-up chest x-ray: Ordered General Comments: Infiltrated PIV site right AC, tender red IV right wrist documented in this encounter [facility] 10-09-2023 Consult note Associated Order (s): IP CONSULT TO INFECTIOUS DISEASES Images from the original note were not included. [facility] - Infectious Diseases Advanced Practice Provider Consult Note Reason for Consult: GNB bacteremia History of Present Illness: 57 yo transgender man with PMHx significant for OM s/p R AKA, anxiety/depression/BPD1/schizoph joão, IDDM, gastroparesis/ intractable nausea & vomiting, endometrial carcinoma, lymphedema, HLD, HTN who presents on 10/07 from nursing facility for hypoglycemia/ unresponsiveness. Per chart review patient had poor PO intake past few days due to N/V which is not unusual. Note, patient on mealtime insulin. POC glucose was 116 and he was given 3 glasses juice prior to bed. He was found unresponsive and diaphoretic in the sales product specialist; POC glucose 36. He was given 2 doses of Glucagon and POC glucose improved to 61. Glucose at 90 when EMS arrived. Per nursing facility, patients mentation did not improve with resolution of hyperglycemia. In the ED, patient hypothermic at 91.4F with leukocytosis (WBC 13.3). Armando hugger was placed. D50 given. Mentation had significantly improved. 10/07 Blood Cx: 1/2 with GNB. Urine Cx NG. CT abd/pelvis without acute infectious/inflammatory process , hyperdensity within gallbladder lumen. US abd revealed gallstones without definite acute biliary process. He was started on Vanc and Pip-Tazo Today, patient A&O x3; appears fatigued and falls asleep easily, but is arousable and answers some questions. He was unable to recall events leading up to hospitalization. He just said he had "issues with stomach", but was unable to specify or elaborate. Reports LLE with swelling and discoloration at baseline. He denies new fever, chills, CP, SOB, cough, N/V changes in bowel or bladder. Denies areas of known wounds. 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 other toe(s), unspecified side ([facility]) Anxiety disorder Bipolar 1 disorder ([facility]) Blood circulation, collateral Cellulitis chronic L lower leg COVID 12/08/2021 Depression Diabetes mellitus ([facility]) Type II, on insulin Disease of blood and blood forming organ Endometrial carcinoma ([facility]) 11/25/2020 Endometrial hyperplasia Foot ulcer ([facility]) Hx of blood clots RLE prior to amputation Hyperlipidemia Hypertension Lymphedema 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, RLE Morbidly obese ([facility]) Muscle weakness Osteomyelitis ([facility]) Osteomyelitis ([facility]) 2019 RLE Other lack of coordination Other specified soft tissue disorders Other symbolic dysfunctions Schizophrenia ([facility]) Sleep apnea no CPAP Venous insufficiency Past Surgical History: Past Surgical History: Procedure Laterality Date ABCESS DRAINAGE Right 09/09/2018 FOOT; ACH COLONOSCOPY 09/19/[address] Hyde DILATION AND CURETTAGE OF UTERUS 05/18/2019 HYSTEROSCOPY 12/23/2021 LEG AMPUTATION THROUGH KNEE Right 06/16/2019 UPPER GASTROINTESTINAL ENDOSCOPY N/A 06/29/2023 Dr Sergio Sibley at [facility]; no specimens WISDOM TOOTH EXTRACTION Current Medications: Current Facility-Administered Medications Medication Dose Route Frequency Provider Last Rate Last Admin acetaminophen (Tylenol) tablet 650 mg 650 mg Oral q4h PRN Rachael Robertson APRN - [employer]ARING [employer]ED WORKER 650 mg at 10/08/23 0554 ARIPiprazole (Abilify) tablet 10 mg 10 mg Oral q24h Rachael Robertson APRN - SHEARING SHED WORKER 10 mg at 10/08/23 1639 aspirin EC tablet 81 mg 81 mg Oral Daily Rachael Robertson APRN - SHEARING SHED WORKER 81 mg at 10/09/23 0855 atorvastatin (Lipitor) tablet 10 mg 10 mg Oral Nightly Rachael Robertson APRN - KRANTHI 10 mg at 10/08/23 2308 clotrimazole (Lotrimin) 1 % cream Topical BID Rachael Robertson APRN - KRANTHI Given at 10/09/23 0852 dextrose 5 % infusion 100 mL/hr IntraVENous PRN Rachael Robertson APRN - KRANTHI dextrose 50 % solution 12.5 g 12.5 g IntraVENous PRN Rachael Robertson APRN - KRANTHI dilTIAZem CD (Cardizem CD) 24 hr capsule 180 mg 180 mg Oral Daily Rachael Robertson APRN - SHEARING SHED WORKER 180 mg at 10/09/23 0855 enoxaparin (Lovenox) syringe 30 mg 30 mg SubCUTAneous 2 times per day Rachael Robertson APRN - SHEARING SHED WORKER 30 mg at 10/09/23 0856 FLUoxetine (PROzac) capsule 40 mg 40 mg Oral Daily Rachael Robertson APRN - SHEARING SHED WORKER 40 mg at 10/09/23 0855 gabapentin (Neurontin) capsule 100 mg 100 mg Oral BID Rachael Robertson APRN - SHEARING SHED WORKER 100 mg at 10/09/23 0856 glucagon (human recombinant) injection 1 mg 1 mg IntraMUSCular PRN JEREMY Liao CNP glucose oral gel 15 g 15 g Oral PRN Rachael Robertson APRN - KRANTHI influenza vac subunit quadrivalent (Flucelvax) injection 0.5 mL 0.5 mL IntraMUSCular Once JEREMY Liao CNP insulin regular (HumuLIN R U-500) CONCENTRATED injection 100 Units 100 Units SubCUTAneous TID Amrita Garcia MD lisinopril tablet 40 mg 40 mg Oral q24h Rachael Robertson APRN - [employer] 40 mg at 10/08/23 1639 megestrol (Megace) tablet 20 mg 20 mg Oral BID Rachael Robertson APRN - [employer] 20 mg at 10/09/23 0855 melatonin tablet 10 mg 10 mg Oral Nightly Rachael Robertson APRN - [employer] 10 mg at 10/08/23 2308 metoclopramide (Reglan) tablet 10 mg 10 mg Oral 4x daily Rachael Robertson APRN - [employer] 10 mg at 10/09/23 0855 metoprolol tartrate (Lopressor) tablet 25 mg 25 mg Oral BID Rachael Robertson APRN - [employer] WORK[employer] 25 mg at 10/09/23 0855 ondansetron (Zofran) tablet 4 mg 4 mg Oral q6h PRN Rachael Robertson APRN - [employer] WORKER 4 mg at 10/08/232043 pantoprazole (ProtoNix) EC tablet 40 mg 40 mg Oral qAM AC Rachael Robertson APRN - [employer] WORK[employer] 40 mg at 10/09/23 0654 piperacillin-tazobactam (Zosyn) IVPB 3,375 mg 3,375 mg IntraVENous q8h Rachael Robertson APRN - [employer] Stopped at 10/09/23 0645 polyethylene glycol (PEG) 3350 (Miralax) packet 17 g 17 g Oral Daily PRN Rachael Robertson APRN - [employer] polyethylene glycol (PEG) 3350 (Miralax) packet 17 g 17 g Oral Daily Rachaeljenny Robertson PERSONAL CARE SERVICE PROVIDER - [employer] WORKER 17 g at 10/08/23 1042 vancomycin (Vancocin) 1500 mg in NS 250 mL IVPB (compounded premix) 1,500 mg IntraVENous q12h Rachael Robertson APRN - [employer] 125 mL/hr at 10/09/23 0656 1,500 mg at 10/09/23 0656 Allergies: No Known Allergies Social History: Social History Socioeconomic History Marital status: Single Spouse name: Not on file Number of children: Not on file Years of education: Not on file Highest education level: Not on file Occupational History Not on file Tobacco Use Smoking status: Never Smokeless tobacco: Never Vaping Use Vaping Use: Never used Substance and Sexual Activity Alcohol use: No Drug use: Never Sexual activity: Not on file Other Topics Concern Not on file Social History Narrative Not on file Social Determinants of Health Financial Resource Strain: Not on file Food Insecurity: Not on file Transportation Needs: Not on file Physical Activity: Not on file Stress: Not on file Social Connections: Not on file Intimate Partner Violence: Not At Risk (08/18/2023) Humiliation, Afraid, Rape, and Kick questionnaire Fear of Current or Ex-Partner: No Emotionally Abused: No Physically Abused: No Sexually Abused: No Housing Stability: Not on file Family History: Family History Problem Relation Name Age of Onset No Known Problems Mother No Known Problems Father Review of Systems: Review of Systems Constitutional: Positive for fatigue. Negative for chills and fever. HENT: Negative for congestion, ear pain, postnasal drip, rhinorrhea, sinus pressure, sinus pain and sore throat. Eyes: Negative for pain, discharge and itching. Respiratory: Negative for cough, chest tightness and shortness of breath. Cardiovascular: Negative for chest pain, palpitations and leg swelling. Gastrointestinal: Positive for nausea. Negative for abdominal distention, abdominal pain, constipation, diarrhea and vomiting. Genitourinary: Negative for dysuria, flank pain, frequency and urgency. Musculoskeletal: Negative for arthralgias and myalgias. Skin: Negative for color change, rash and wound. Neurological: Positive for weakness. Negative for dizziness, light-headedness and headaches. Vitals: Patient Vitals for the past 24 hrs: BP Temp Temp src Pulse Resp SpO2 10/09/23 0552 120/61 (!) 35.8 C (96.4 F) Temporal 82 16 95 % 10/09/23 0206 (!) 178/86 36.3 C (97.4 F) Temporal 98 20 93 % 10/08/23 2114 (!) 156/88 36.6 C (97.8 F) Temporal 98 24 96 % 10/08/23 1852 (!) 178/83 -- -- 89 -- -- 10/08/23 1641 (!) 191/82 37.2 C (98.9 F) Temporal 87 18 94 % 10/08/23 1418 (!) 168/67 36.8 C (98.3 F) Temporal 84 20 97 % 10/08/23 1100 136/60 36.7 C (98 F) Temporal 84 18 96 % Physical Exam: Physical Exam Vitals and nursing note reviewed. Constitutional: General: He is not in acute distress. Appearance: He is obese. He is ill-appearing. He is not toxic-appearing. Comments: NAD laying in bed. Appears fatigued, falls asleep easily but is arousable to verbal and tactile stimuli. A&O x3.Provides some responses HENT: Head: Normocephalic and atraumatic. Right Ear: External ear normal. Left Ear: External ear normal. Mouth/Throat: Mouth: Mucous membranes are moist. Pharynx: Oropharynx is clear. Eyes: Extraocular Movements: Extraocular movements intact. Conjunctiva/sclera: Conjunctivae normal. Pupils: Pupils are equal, round, and reactive to light. Cardiovascular: Rate and Rhythm: Normal rate and regular rhythm. Pulses: Normal pulses. Heart sounds: Normal heart sounds. Pulmonary: Effort: Pulmonary effort is normal. Breath sounds: Normal breath sounds. Comments: Breathing comfortably on room air Abdominal: General: Abdomen is flat. There is no distension. Palpations: Abdomen is soft. Tenderness: There is no abdominal tenderness. Musculoskeletal: Left lower leg: Edema present. Comments: R AKA stump with healed scar Skin: General: Skin is warm and dry. Comments: LLE with swelling, dusky erythema. No warmth, tenderness, wounds. Neurological: Mental Status: He is alert and oriented to person, place, and time. Labs: Recent Labs 10/07/23 0627 10/07/23 1803 10/08/23 0307 NA 138 -- 130* K 4.4 -- 4.2 CL 100 -- 100 CO2 27 -- 22 BUN 20 -- 34 CREATININE 0.74 -- 1.09 GLUCOSE 120* -- 288* CALCIUM 8.8 -- 8.1* PROT 7.7 -- 5.9* BILITOT 0.4 -- 0.9 ALKPHOS 133* -- 143* AST 36 -- 33 ALT 46 -- 42 PROCAL -- 0.83* -- Recent Labs 10/07/23 0627 10/08/23 0307 WBC 13.3* 10.1 HGB 13.2 10.6* HCT 41.5 31.6 PLT 438 339 LYMPHOPCT 7.5* 26.5 MONOPCT 5.9 7.3 BASOPCT 0.2 0.8 NEUTROABS 11.3* 6.5 Micro: No results for input(s): "COVID19" in the last 72 hours. 10/07 Blood Cx: 1/2 GNB 10/07 Resp PCR Panel: neg 10/07 Urine Cx: NG 10/08 MRS PCR: + MRSA Lines: PIV Radiography/Echo/Other: 10/07 CT Head Mild parenchymal volume loss. No evidence of acute intracranial process. 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 10/07 CXR Chronic findings. No appreciable acute pulmonary process. 10/08 CT abd/pelvis 1. No evidence of acute infectious or inflammatory process in the abdomen or pelvis. 2. The liver demonstrates generalized diminished attenuation as compared to the spleen, compatible with hepatic steatosis. 3. Hyperdensity within the gallbladder lumen, suggestive of sludge and/or cholelithiasis; consider right upper quadrant ultrasound. 4. Patchy opacities in the right lung base. 10/08 US abd Gallstones. No definite acute biliary process. Consider follow-up or further evaluation. Limited due to body habitus and bowel gas. Antimicrobials,Start/End Dates: Pip-Tazo: 10/07 Vanc: 10/07-10/09 Impression: GNB bacteremia from ?source Episode hypoglycemia/unresponsiveness Hypothermia Gallstones without acute biliary process Hx OM s/p R AKA Gastroparesis with N/V IDDM anxiety/depression/BPD1/schizoph joão Plan: Following patient for GNB bacteremia from unknown source. Difficult to obtain full history, but no Resp complaints, urinary complaints (Urine Cx NG), or known open wounds. He does have Hx N/V + gallstones without acute biliary process. ? Possible GI in origin, but no obvious signs infection on CT abd/pelvis. Follow Blood Cx results for identification. Obtain repeat Blood Cx to ensure sterility. Vancomycin discontinued. Plan to maintain Pip-Tazo 3375mg IV q8h for now. ID will continue to follow Case and plan discussed with Dr. Farias. Total time 75 minutes on this day of encounter includes counseling, coordinating plan of care, record and documentation review before and after visit including documentation and time not explicitly included on EMR time stamp for accounting for open encounter. Skylar BLANCAS PA-C Associated Order(s): IP CONSULT TO ENDOCRINOLOGY Department of Internal Medicine Division of Endocrinology, Diabetes, & Metabolism Endocrinology Note Patient Name: Will Jacinto : 1965 AGE: 57 y.o. Room[facility]Bed: [facility] Admission Date: 10/07/2023 Visit Date: 10/08/2023 Reason for Endocrine Consult: U-500 dosing, hypoglycemia Provider/Team Requesting Consult: [facility] PCP: Jared Guzman Outpt District Sales Coordinator: Dr. Lee ASSESSMENT: Type 2 diabetes with hypoglycemia and long-term insulin use Abdominal pain with nausea and vomiting under evaluation Diabetic polyneuropathy Gastroparesis Morbid obesity-BMI Hypertension Hyperlipidemia NOY PLAN: It is likely that patient had hypoglycemia in view of taking usual dose of U-500 in the setting of poor p.o. intake Current sugars are significant for hyperglycemia Resume U 500 Insulin - at a lower dose of 100 units tid with meals DC Humalog scale with meals Check hemoglobin A1c ICU goal <180 GMF goal <150 POCT BG ACHS Hypoglycemia per protocol Carb controlled diet ANTICIPATED ENDOCRINE HOME GOING RECOMMENDATIONS: Optimized for Discharge from Endocrine standpoint: No Home Going Endocrine Rx Recommendations-- U 500 Insulin doses to be decided Trulicity-to be decided Outpt Follow Up-- 10/27/2023 SUBJECTIVE/HPI: CHIEF COMPLAINT: Chief Complaint Patient presents with Hypoglycemia Patient is a 57-year-old transgender male with history of type 2 diabetes, hypertension, hyperlipidemia, diabetic polyneuropathy, s/p right AKA and [facility]/unresponsiveness. Per notes patient has had poor p.o. intake for the last 4 days in addition to nausea and vomiting. Type of DM: 2 Onset of DM: 1991 Home DM Medication Regimen: U-500 insulin - 285 units before breakfast/260 units before lunch/285 units before dinner , Trulicity 4.5 mg weekly DM control (last A1c/glucose data): 10.1% in 02/2023 renal functions show mild NOY Patient was seen at bedside He mentions that he was having nausea and vomiting for the last 4 days prior to presentation He feels better now On a full liquid diet at this time Has been able to tolerate 100 percentage of meals Mentions that usually has symptoms of hypoglycemia when sugars are low. However it appears that he was noted to be unresponsive and was found to have a blood glucose of 36 in the prison. Patient had received 260 units of U-500 with lunch and 285 units with dinner , but did not eat much of dinner and was found to be unresponsive and diaphoretic at 4:45 in the morning. Diabetes is complicated by neuropathy s/p right AKA Glucose Date/Time Value Ref Range Status 10/08/2023 07:53 AM 271 (H) 70 - 100 mg/dL Final 10/07/2023 08:27 PM 267 (H) 70 - 100 mg/dL Final 10/07/2023 04:51 PM 176 (H) 70 - 100 mg/dL Final 10/07/2023 02:52 PM 111 (H) 70 - 100 mg/dL Final 10/07/2023 02:18 PM 81 70 - 100 mg/dL Final 10/07/2023 10:32 AM 91 70 - 100 mg/dL Final Glucose Blood, POC Date/Time Value Ref Range Status 10/07/2023 08:39 AM 129 mg/dL 10/07/2023 08:07 AM 129 mg/dL Final 10/07/2023 07:35 AM 151 mg/dL Final Review of Systems ROS negative except for those mentioned in HPI. OBJECTIVE: Vitals: 10/07/23 1606 10/07/23201310/08/23 0246 10/08/23 0725 BP: 123/82 101/68 93/54 126/60 BP Location: Left arm Left arm Patient Position: Lying Pulse: 92 90 83 88 Resp: 20 20 17 18 Temp: 36.4 C (97.5 F) 36.5 C (97.7 F) 37 C (98.6 F) 36.4 C (97.5 F) TempSrc: Temporal Temporal Temporal Temporal SpO2: 98% 97% 93% 98% Weight: (!) 316 lb (143 kg) Height: 5' 6" (1.676 m) Physical Exam Vitals and nursing note reviewed. Constitutional: Appearance: Normal appearance. He is obese. HENT: Head: Normocephalic and atraumatic. Cardiovascular: Rate and Rhythm: Normal rate and regular rhythm. Pulmonary: Effort: Pulmonary effort is normal. Abdominal: General: There is distension. Musculoskeletal: General: Swelling present. Comments: Left lower extremity venous stasis changes noted Right AKA Skin: General: Skin is dry. Neurological: General: No focal deficit present. Mental Status: He is alert and oriented to person, place, and time. Psychiatric: Attention and Perception: Attention normal. Behavior: Behavior is slowed. 24 hour intake/output: Intake/Output Summary (Last 24 hours) at 10/08/2023 1027 Last data filed at 10/08/2023 0935 Gross per 24 hour Intake 910 ml Output 250 ml Net 660 ml Diet: Adult diet Full liquid; 5 carb choices (75 gm/meal) Medications (as per EMR): HomeMeds: Current Outpatient Medications Medication Instructions acetaminophen (TYLENOL) 650 mg, Oral, Every 4 hours PRN ARIPiprazole (Abilify) 10 MG tablet Every 24 hours aspirin 81 MG EC tablet 1 tablet, Oral, Daily atorvastatin (Lipitor) 10 MG tablet 1 tablet, Oral, Daily bisacodyl (DULCOLAX) 5 mg, Oral, 2 times daily PRN, Do not crush, chew, or split. cinnamon 2,000 mg, Oral, Daily clotrimazole (Lotrimin) 1 % cream Topical, 2 times daily dilTIAZem CD (CARDIZEM CD) 180 mg, Oral, Daily dulaglutide (TRULICITY) 4.5 mg, SubCUTAneous, Weekly, Every FLUoxetine (PROZAC) 40 mg, Oral, Daily gabapentin (NEURONTIN) 100 mg, Oral, 2 times daily insulin regular (HumuLIN R U-500 KWIKPEN) 500 UNIT/ML CONCENTRATED injection SubCUTAneous, 3 times daily, 285 units before breakfast/260 units before lunch/285 units before dinner Lactobacillus Acid-Pectin (Acidophilus/[place] Pectin) tablet 1 tablet, Oral, 2 times daily lisinopril 40 MG tablet Every 24 hours Loratadine 10 MG capsule Oral magnesium hydroxide (Milk of Magnesia Concentrate) 2400 MG/10ML suspension suspension Every 24 hours megestrol (Megace) 20 MG tablet 1 tablet, Oral, 2 times daily melatonin 10 mg, Oral, Nightly PRN metoclopramide (REGLAN) 10 mg, Oral, 4 times daily metoprolol tartrate (Lopressor) 25 MG tablet 1 tablet, Oral, 2 times daily miconazole (Micotin) 2 % powder Topical, 2 times daily ondansetron (ZOFRAN) 4 mg, Oral, Every 6 hours PRN pantoprazole (PROTONIX) 40 mg, Oral polyethylene glycol (PEG) 3350 (GLYCOLAX) 17 g, Oral, Daily potassium chloride CR (K-Tab) 20 MEQ ER tablet Every 24 hours Scheduled Meds:ARIPiprazole, 10 mg, Oral, q24h aspirin, 81 mg, Oral, Daily atorvastatin, 10 mg, Oral, Nightly clotrimazole, , Topical, BID dilTIAZem CD, 180 mg, Oral, Daily enoxaparin, 30 mg, SubCUTAneous, 2 times per day FLUoxetine, 40 mg, Oral, Daily gabapentin, 100 mg, Oral, BID influenza, 0.5 mL, IntraMUSCular, Once insulin lispro, 0-18 Units, SubCUTAneous, TID WC And insulin lispro, 0-18 Units, SubCUTAneous, Nightly [Held by provider] insulin regular, 260 Units, SubCUTAneous, TID [Held by provider] liraglutide, 1.8 mg, SubCUTAneous, Daily lisinopril, 40 mg, Oral, q24h megestrol, 20 mg, Oral, BID melatonin, 10 mg, Oral, Nightly metoclopramide, 10 mg, Oral, 4x daily metoprolol tartrate, 25 mg, Oral, BID pantoprazole, 40 mg, Oral, qAM AC piperacillin-tazobactam, 3,375 mg, IntraVENous, q8h polyethylene glycol (PEG) 3350, 17 g, Oral, Daily vancomycin, 1,500 mg, IntraVENous, q12h Continuous Infusions: PRN Meds:PRN medications: acetaminophen, dextrose, dextrose, glucagon (rDNA), glucose, ondansetron, polyethylene glycol (PEG) 3350 Diagnostic Workup: I reviewed pertinent Laboratory results, Radiographic results, and Other Clinical Notes at the time of today's encounter. Labs: No components found for: LABA1C No components found for: "EAG" Lab Results Component Value Date NA 130 (L) 10/08/2023 K 4.2 10/08/2023 CL 100 10/08/2023 CO2 22 10/08/2023 BUN 34 10/08/2023 CREATININE 1.09 10/08/2023 GLUCOSE 288 (H) 10/08/2023 CALCIUM 8.1 (L) 10/08/2023 Lab Results Component Value Date CHLPL 125 08/29/2020 Lab Results Component Value Date TRIG 190 08/29/2020 Lab Results Component Value Date HDL 31 (A) 08/29/2020 Lab Results Component Value Date LDLCALC 56 08/29/2020 Lab Results Component Value Date VLDL 38 08/29/2020 No results found for: CHOLHDLRATIO No results found for: PPRL84ZUM Lab Results Component Value Date TSH 2.356 11/26/2020 Radiology reportsas per the Radiologist Radiology: CT abdomen pelvis w contrast Result Date: 10/08/2023 Patient Name: WILL JACINTO : 1965 Exam Date/Time: 10/08/2023 09:36 Procedure: CT ABDOMEN PELVIS W CONTRAST Ordering Provider: ROBERTSON MEREDITH Reason For Exam: Nausea/vomiting CT ABDOMEN AND PELVIS WITH CONTRAST CLINICAL INDICATION: Nausea and vomiting. TECHNIQUE: Multi-axial 3mm sections through the abdomen and pelvis following 75 mL of Isoview contrast media. No oral contrast was administered. Coronal and sagittal reconstructions were reviewed. Dose reduction was employed with automated exposure control. COMPARISON: 08/17/2023. FINDINGS: Lower thorax: Patchy opacities in the right lung base. Otherwise unremarkable. Stomach: Unremarkable. Liver: Normal size and contours. The liver demonstrates generalized diminished attenuation as compared to the spleen, compatible with hepatic steatosis. No focal lesion. Biliary tree: Hyperdensity within the gallbladder lumen, suggestive of sludge and/or cholelithiasis. No pericholecystic inflammatory change by CT. No biliary dilatation. Spleen: Normal. Adrenals: Normal. Pancreas: Normal. Kidneys: Symmetric contrast enhancement without evidence of hydronephrosis. No focal renal lesion is identified. Free air or fluid: None. Mesenteric/retroperitoneal: No adenopathy or inflammation. Aorta: Normal caliber of aorta and bilateral common iliac arteries. Bowel: No inflammatory changes in the right lower quadrant. No inflammatory change or bowel dilatation is noted. Urinary bladder: Unremarkable. Abdominal wall/soft tissues: No ventral hernia is evident. Pelvic organs/viscera: The uterus is present. Inguinal: No lymphadenopathy. Osseous structures: Advanced multilevel thoracolumbar spine degenerative changes including DISH. Advanced bilateral hip osteoarthritis. 1. No evidence of acute infectious or inflammatory process in the abdomen or pelvis. 2. The liver demonstrates generalized diminished attenuation as compared to the spleen, compatible with hepatic steatosis. 3. Hyperdensity within the gallbladder lumen, suggestive of sludge and/or cholelithiasis; consider right upper quadrant ultrasound. 4. Patchy opacities in the right lung base. Report Dictated on Electronically Signed By: Bao Hill MD Electronically Signed Date/Time: 10/08/2023 10:23 AM EST XR chest 1 view Result Date: 10/07/2023 Patient Name: WILL JACINTO : 1965 Exam Date/Time: 10/07/2023 07:31 Procedure: XR CHEST 1 VIEW Ordering Provider: MUSTAFA KATHRYN Reason For Exam: altered, hypoglyc CHEST (Frontal View) History: Hypoglycemia, change in mental status Comparison: 08/08/2023 Findings: Frontal chest view shows diminished lung volume with interstitial prominence and small linear basilar atelectasis without acute infiltrate or overt congestion. The heart is normal in size. There is no mediastinal widening, sizable pleural effusion, or other significant change from last exam. There is spondylosis. Chronic findings. No appreciable acute pulmonary process. Report Dictated on Electronically Signed By: Angel Randhawa MD Electronically Signed Date/Time: 10/07/2023 7:[address] head wo IV contrast Result Date: 10/07/2023 [facility] 1965 [id number] Exam Date/Time: 10/07/2023 07:29 Procedure: CT HEAD WO IV CONTRAST Ordering Provider: MUSTAFA KATHRYN Reason For Exam: AMS UNENHANCED HEAD CT History: Change in mental status Comparison: None available Technique: Multislice axial CT sections obtained from the base to the vertex of the brain without IV contrast enhancement. Multiplanar sagittal and coronal reconstructed images also obtained. Dose reduction employed with automated exposure control. Findings: There is mild parenchymal loss with prominent cortical sulci and fissures, not unusual for age. The ventricles are normal in size for age. There is no intracranial hemorrhage, midline shift, or other mass effect in the brain. The exam is limited without contrast enhancement. There are mild carotid siphon calcifications. The paranasal sinuses and bilateral mastoid air cells are clear. There is spondylosis with prominent calcific/ossific densities at the cervical cranial and C1-C2 junction that are not adequately visualized for proper evaluation. Mild parenchymal volume loss. No evidence of acute intracranial process. 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 other toe(s), unspecified side (HCC) Anxiety disorder Bipolar 1 disorder (HCC) Blood circulation, collateral Cellulitis chronic L lower leg COVID 12/08/2021 Depression Diabetes mellitus (HCC) Type II, on insulin Disease of blood and blood forming organ Endometrial carcinoma (HCC) 11/25/2020 Endometrial hyperplasia Foot ulcer (HCC) Hx of blood clots RLE prior to amputation Hyperlipidemia Hypertension Lymphedema 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; no specimens WISDOM TOOTH EXTRACTION Allergy(ies): No Known Allergies Family History: Family History Problem Relation Name Age of Onset No Known Problems Mother No Known Problems Father Social History: Social History Tobacco Use Smoking status: Never Smokeless tobacco: Never Vaping Use Vaping Use: Never used Substance Use Topics Alcohol use: No Drug use: Never Portions of the information within this encounter were entered using an electronic dictation system. Best attempts were made to edit/proofread the information prior to note completion. Despite the review of information, some errors may remain. If there are questions related to the information contained within the note please contact the signing physician directly. I spent 75 minutes with the pt which involved coordination of care, medical evaluation, review of records, and/or counseling of the pt regarding his/her condition/disease state/prognosis on the date of this note. Pharmacy Managed Vancomycin Dosing Service Consult Note Consult Date: 10/07/23 Consulted By: Rachael Robertson CNP Room:W4-429/W4-429 A Patient Name: Will Jacinto Allergies: Patient has no known allergies. Age: 57 y.o. Sex: adult Ht: Height: 167.6 cm (5' 6") TBW: Weight: (!) 143 kg (316 lb) BMI: Body mass index is 51 kg/m . DW: 95.5kg (adjusted) Calculated CrCl: >100mL/min Lab Results Component Value Date CREATININE 0.74 10/07/2023 CREATININE 1.00 08/19/2023 CREATININE 0.76 08/18/2023 BUN 20 10/07/2023 BUN 23 08/19/2023 BUN 24 08/18/2023 WBC 13.3 (H) 10/07/2023 WBC 8.6 08/19/2023 WBC 13.2 (H) 08/18/2023 Trough: No results found for: VANCOTROUGH Random: No results found for: VANCORANDOM Infectious Diagnosis: Sepsis (AUC Goal 400-600 mg/L*hr) Antimicrobials: Patient recently received an antibiotic (last 12 hours) Date/Time Action Medication Dose Rate 10/07/23 0833 New Bag vancomycin (Vancocin) 2,500 mg in sodium chloride 0.9 % 250 mL IVPB 2,500 mg 125 mL/hr 10/07/23 0757 New Bag piperacillin-tazobactam (Zosyn) 4.5 g in sodium chloride 0.9 % 100 mL IVPB Mini-Bag Plus 4.5 g 200 mL/hr Assessment/Plan: Start Vancomycin 1.5 grams Q 12 hours based on patient age, weight, renal function, and infectious diagnosis (16 mg/kg of adjusted weight), predicted AUC 537 mg/L*hr. Will assess random level with morning labs and adjust as appropriate. Will follow renal function closely Thank you for this consult. Please page/call with questions. Date: 10/07/23 Time: 5:46 PM Art Stapleton RPh, PharmD Available via Secure Chat documented in this encounter [facility] 10-07-2023 History and physical note Images from the original note were not included. Attending History and Physical Admit Date: 10/07/2023 PCP: Jared Guzman CHIEF COMPLAINT: Hypoglycemia Reason for Admission: Hypoglycemia History Obtained From: patient HISTORY OF PRESENT ILLNESS: Wlil Jacinto is a 57 y.o. adult (transgender female to male) with medical history of diabetes, osteomyelitis status post right above-knee amputation, schizophrenia, gastroparesis/intractable nausea/vomiting, endometrial carcinoma who presents to the emergency department from [facility] for hypoglycemia/unresponsiveness. Staff nurse at facility provided HPI because patient was unresponsive, reported that patient has had poor p.o. intake for last 4 days secondary to nausea/vomiting for which he is prescribed Zofran. Nausea/vomiting per nurse is not unusual. Patient is additionally a brittle diabetic and on significant mealtime insulin. Last insulin 5 PM (approx 12 hours prior to arrival). Received 260 units Humulin R at noon and 285 units at 5 PM. Juliane was told by prior nurse that he had small volume p.o. intake for dinner at 5p (?some soup). Tetlk-cc-obgu glucose last night was 116 and he was given 3 glasses of apple juice prior to bed. Found unresponsive and diaphoretic at 0445 this a.m. Xaejf-zg-owxk glucose 36 at that time. Given 2 doses of glucagon which improved his ydbot-cy-aezs glucose to 61. Glucose was 90 upon EMS arrival. According to nursing facility staff patient's mentation did not improve after hypoglycemia resolved. Patient is normally awake and oriented x4 with some baseline right lower extremity weakness for which he is wheelchair-bound. No reported other symptoms leading up to being found unresponsive. Patient initially seen in the emergency department and had a work-up including sepsis labs as unclear source of altered mental status. His blood pressure was stable he was mildly tachycardic but breathing comfortably and satting well however he was profoundly hypothermic at 33 C, required warmed fluids and was started on broad-spectrum antibiotics. Initially he was to be accepted into ICU care and then reevaluation nursing staff noticed that his mentation has significantly improved and he was answering questions and awake and oriented x2 so was excepted under general medical floor. Patient reports he has had decreased oral intake because he is having persistent nausea, not any vomiting today. He denies any diarrhea, fever, chills. We will admit for further evaluation and management. 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 other toe(s), unspecified side (HCC) Anxiety disorder Bipolar 1 disorder ([facility]) Blood circulation, collateral Cellulitis chronic L lower leg COVID 12/08/2021 Depression Diabetes mellitus ([facility]) Type II, on insulin Disease of blood and blood forming organ Endometrial carcinoma ([facility]) 11/25/2020 Endometrial hyperplasia Foot ulcer ([facility]) Hx of blood clots RLE prior to amputation Hyperlipidemia Hypertension Lymphedema 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, RLE Morbidly obese ([facility]) Muscle weakness Osteomyelitis ([facility]) Osteomyelitis ([facility]) 2019 RLE Other lack of coordination Other specified soft tissue disorders Other symbolic dysfunctions Schizophrenia ([facility]) Sleep apnea no CPAP Venous insufficiency Past Surgical History: Past Surgical History: Procedure Laterality Date ABCESS DRAINAGE Right 09/09/2018 FOOT; ACH COLONOSCOPY 09/19/[address] Hyde DILATION AND CURETTAGE OF UTERUS 05/18/2019 HYSTEROSCOPY 12/23/2021 LEG AMPUTATION THROUGH KNEE Right 06/16/2019 UPPER GASTROINTESTINAL ENDOSCOPY N/A 06/29/2023 Dr Sergio Sibley at [facility]; no specimens WISDOM TOOTH EXTRACTION Social History: Social History Socioeconomic History Marital status: Single Spouse name: Not on file Number of children: Not on file Years of education: Not on file Highest education level: Not on file Occupational History Not on file Tobacco Use Smoking status: Never Smokeless tobacco: Never Vaping Use Vaping Use: Never used Substance and Sexual Activity Alcohol use: No Drug use: Never Sexual activity: Not on file Other Topics Concern Not on file Social History Narrative Not on file Social Determinants of Health Financial Resource Strain: Not on file Food Insecurity: Not on file Transportation Needs: Not on file Physical Activity: Not on file Stress: Not on file Social Connections: Not on file Intimate Partner Violence: Not At Risk (08/18/2023) Humiliation, Afraid, Rape, and Kick questionnaire Fear of Current or Ex-Partner: No Emotionally Abused: No Physically Abused: No Sexually Abused: No Housing Stability: Not on file Family History: Family History Problem Relation Name Age of Onset No Known Problems Mother No Known Problems Father Medications Prior to Admission: No current facility-administered medications on file prior to encounter. Current Outpatient Medications on File Prior to Encounter Medication Sig Dispense Refill acetaminophen (Tylenol) 325 MG tablet Take 650 mg by mouth every 4 hours as needed for mild pain (1-3). ARIPiprazole (Abilify) 10 MG tablet Every 24 hours. aspirin 81 MG EC tablet Take 1 tablet by mouth daily. atorvastatin (Lipitor) 10 MG tablet Take 1 tablet by mouth daily. bisacodyl (Dulcolax) 5 MG EC tablet Take 5 mg by mouth 2 times daily as needed for constipation. Do not crush, chew, or split. cinnamon 500 MG capsule Take 2,000 mg by mouth daily. clotrimazole (Lotrimin) 1 % cream Apply topically 2 times daily. dilTIAZem CD (Cardizem CD) 180 MG 24 hr capsule Take 180 mg by mouth daily. dulaglutide (Trulicity) 4.5 MG/0.5ML solution pen-injector Inject 4.5 mg under the skin 1 (one) time per week. Every FLUoxetine (PROzac) 40 MG capsule Take 40 mg by mouth daily. gabapentin (Neurontin) 100 MG capsule Take 100 mg by mouth in the morning and 100 mg before bedtime. insulin regular (HumuLIN R U-500 KWIKPEN) 500 UNIT/ML CONCENTRATED injection Inject under the skin 3 times daily. 285 units before breakfast/260 units before lunch/285 units before dinner Lactobacillus Acid-Pectin (Acidophilus/[place] Pectin) tablet Take 1 tablet by mouth in the morning and 1 tablet in the evening. lisinopril 40 MG tablet Every 24 hours. Loratadine 10 MG capsule Take by mouth. magnesium hydroxide (Milk of Magnesia Concentrate) 2400 MG/10ML suspension suspension Every 24 hours. megestrol (Megace) 20 MG tablet Take 1 tablet by mouth in the morning and 1 tablet before bedtime. melatonin 10 MG tablet Take 10 mg by mouth Nightly as needed (insomnia). metoclopramide (Reglan) 10 MG tablet Take 1 tablet (10 mg) by mouth in the morning and 1 tablet (10 mg) at noon and 1 tablet (10 mg) in the evening and 1 tablet (10 mg) before bedtime. Do all this for 7 days. 28 tablet 0 metoprolol tartrate (Lopressor) 25 MG tablet Take 1 tablet by mouth in the morning and 1 tablet before bedtime. miconazole (Micotin) 2 % powder Apply topically 2 times daily. ondansetron (Zofran) 4 MG tablet Take 4 mg by mouth every 6 hours as needed for nausea. pantoprazole (ProtoNix) 40 MG EC tablet Take 40 mg by mouth. polyethylene glycol, PEG, 3350 (Glycolax) 17 GM/SCOOP powder Take 17 g by mouth daily. potassium chloride CR (K-Tab) 20 MEQ ER tablet Every 24 hours. Allergies: No Known Allergies REVIEW OF SYSTEMS: Constitutional: Negative for fever, chills, activity change and unexpected weight change. HEENT: Negative for congestion, postnasal drip and sneezing. Eyes: Negative for itching and visual disturbance. Respiratory: Negative for apnea, cough, choking, chest tightness, shortness of breath, wheezing and stridor. Cardiovascular: Negative for chest pain. Gastrointestinal: Negative for nausea, vomiting, abdominal pain, diarrhea and blood in stool. Genitourinary: Negative for dysuria, frequency and flank pain. Musculoskeletal: Negative for myalgias and joint swelling. Skin: Negative for rash. Neurological: Negative for dizziness, tremors, seizures, syncope, facial asymmetry, speech difficulty, weakness, numbness and headaches. Hematological: Negative for adenopathy. Psychiatric/Behavioral: Negative for suicidal ideas, behavioral problems, self-injury and dysphoric mood. Vitals: BP 123/82 Pulse 92 Temp 36.4 C (97.5 F) (Temporal) Resp 20 Ht 5' 6" (1.676 m) Wt (!) 316 lb (143 kg) SpO2 98% BMI 51.00 kg/m BMI Classification: Morbidly Obese (>40.0) Pulse Ox: SpO2 Av.2 % Min: 90 % Max: 100 % Supplemental O2: PHYSICAL EXAM: General appearance: No apparent distress, appears stated age and cooperative with exam. Obese HEENT: Normal cephalic, atraumatic without obvious deformity. Pupils equal, round, and reactive to light. Conjunctivae/corneas clear. Neck: Supple, with full range of motion. No jugular venous distention. Trachea midline. No lymphadenopathy. Respiratory: Normal respiratory effort. Diminished on auscultation Cardiovascular: Regular rate and rhythm with normal S1/S2 without murmurs, distant heart sounds Abdomen: Soft, rotund, nontender, hypoactive bowel sounds Musculoskeletal: No clubbing, cyanosis. Trace edema to LLE. right AKA Skin: Skin color, texture, turgor normal. Erythema noted to LLE Neurologic: Neurovascularly intact without any focal sensory/motor deficits. Psychiatric: Alert and oriented, thought content appropriate, normal insight. DATA: CBC: Recent Labs 10/07/23626 WBC 13.3* RBC 4.75 HGB 13.2 HCT 41.5 MCV 87.4 RDW 14.2 PLT 438 BMP: Recent Labs 10/07/23626 NA 138 K 4.4 CL 100 CO2 27 BUN 20 CREATININE 0.74 GLUCOSE 120* CALCIUM 8.8 ANIONGAP 11 LIVER PROFILE: Recent Labs 10/07/23626 AST 36 ALT 46 BILITOT 0.4 ALKPHOS 133* PROT 7.7 PT/INR: No results for input(s): "PROTIME", "INR" in the last 72 hours. CARDIAC ENZYMES: No results for input(s): "TROPONINI" in the last 72 hours. Procalcitonin: No results found for: "PROCAL" Urine Culture: Results for orders placed or performed during the hospital encounter of 08/08/23 Urine culture Specimen: Urine, Clean Catch Result Value Ref Range Urine Culture Normal urogenital dorinda present Urine Culture >100,000 CFU/mL Klebsiella pneumoniae (A) Susceptibility Klebsiella pneumoniae - BROTH MICRODILUTION Amoxicillin / Clavulanate <=2 Susceptible ug/ml Ampicillin Resistant Ampicillin / Sulbactam 4 Susceptible ug/ml Aztreonam <=1 Susceptible ug/ml Cefazolin <=4 Susceptible ug/ml Cefepime <=1 Susceptible ug/ml Ceftriaxone <=1 Susceptible ug/ml Ciprofloxacin <=0.25 Susceptible ug/ml Gentamicin <=1 Susceptible ug/ml Meropenem <=0.25 Susceptible ug/ml Nitrofurantoin 128 Resistant ug/ml Piperacillin / Tazobactam <=4 Susceptible ug/ml Trimethoprim / Sulfamethoxazole <=20 Susceptible ug/ml COVID-19 PCR: No results for input(s): "COVID19" in the last 72 hours. I reviewed: [x] laboratory results [x] radiographic results At the time of today's encounter. Pt was advised of the results. Assessment Data: (CAT1) Reviewed 3 or more labs/studies ordered by another provider not previously counted (each=1, panels count as 1). (CAT1) Ordered 3 or more new labs and/or studies (each=1, panels count as 1). (CAT2) CXR reviewed & showed no acute cardiopulmonary process as interpreted by me. Labs reviewed without significant electrolyte abnormalities, glucose 120, hepatic function normal Lactic acid was 1.2 White blood cell count of 13.3, neutrophils elevated No anemia noted Blood culture drawn and pending CT of head showed mild parenchymal volume loss but no evidence of acute intracranial process Respiratory viral panel was negative Urine with protein, glucose present but no indications of infectious process, culture pending Discussed this case with ED attending and agree with plan for admission Reviewed external records, patient recently admitted for upper abdominal pain, nausea, vomiting for the past week, had previously been admitted to the hospital for pyelonephritis, reported that since he was taking the antibiotics he had persistent symptoms. At that time his urine was thought to be more with a yeast and he was discharged without antibiotic therapy Acute, acute on chronic, unstable/uncontrolled chronic problems/diagnoses: Hypoglycemia Nausea/vomiting Abdominal pain, generalized Hypothermia Mental status change-resolved LLE erythema- monitor for worsening, consider possible cellulitis SIRS-initially patient was tachycardic, with temp less than 36 C and a white blood cell count greater than 12 qualifying for SIRS Stable chronic problems affecting care, new non-acute diagnoses: JOHN-not using CPAP Diabetes mellitus type 2 Right leg amputation Bipolar Schizophrenia Hyperandrogenism History of blood clots Hyperlipidemia Hypertension MDRO - history CRE from right extremity wound Generalized muscle weakness Endometrial carcinoma Plan As a result of the above findings & factors, the following mgmt was pursued: -Admit to medicine -continue to eval for infectious process, blood cultures pending, urine culture pending with patient presenting with hypothermia, mental status change -check procalcitonin -Continue broad-spectrum antibiotics -hold home U-500, high dose humalog scale, consult endocrinology, hypoglycemia protocol -CT abdomen and pelvis with persistent nausea and vomiting, would consider possible gastric emptying study if no findings on CT scan -Will eval EtOH, UDS, ammonia given persistent altered mental status after hypoglycemia corrected, consider metabolic source -Continue home medications including Abilify, statin, ASA, diltiazem and Prozac -Zofran as needed for nausea management, will continue scheduled Reglan, monitor for interactions or potential for NMS, EPS with combination Reglan and Abilify. Patient has been on this medication outpatient and tolerating -full liquid diet, advance as tolerated - am labs, replace lytes prn - CM/SW - delirium precautions: increase activity - DVT prophylaxis: enoxaparin and encourage ambulation Complexity: Acute illness or injury posing a threat to life or body function (HIGH). Risk: Admission to hospital-level care was considered or occurred (HIGH). Prescription drug/IVF/colloid was initiated, discontinued, adjusted; or reviewed with decision to maintain current orders (MOD). Advance Directive: Full Code Anticipated Discharge - Date - TBD - Location - Skilled Facility - Pending the following - Clinical course Total time spent (which include face to face and non face to face encounters) : 80 minutes Extended Emergency Contact Information Primary Emergency Contact: QuesadaTammyh Relation: Relative Secondary Emergency Contact: LubinCarola Mobile Relation: Other Rachael Robertson APRN - [facility] Division of Hospitalist Medicine [place] [place] attestation - Carly Nino MD - 10/08/2023 6:08 PM EST I have reviewed the case with the PA/[employer]. I agree with the current plan of care including the workup, evaluation, management, and diagnosis. Care plan has been discussed. The documentation below has been reviewed and edited as needed to reflect the findings of my evaluation. Greater than 51% of the 15 minute face to face encounter was spent discussing/counseling the patient regarding the care plan for this patient. A full chart review was performed. [facility] Hospitalist documented in this encounter [facility] 10-07-2023 Emergency department Note Physician's ambulance arrived for transport. Hand off report given to medics. Breonna Palmer RN 10/07/23 4045 Phoned [facility] 4W. Hand off report given to GLYNN Martínez. Breonna Palmer RN 10/07/23 1444 Patient given orange juice. Breonna Palmer RN 10/07/23 1423 Phoned GLYNN Ochoa at [facility] and gave update that patient is to be admitted to [facility] and is currently in stable condition. RN appreciative of update. Breonna Palmer RN 10/07/23 1414 Phoned physician's ambulance for transport. ETA 1530 Breonna Palmer RN 10/07/23 1331 Repositioned patient for comfort with 2 assists. Breonna Palmer RN 10/07/23 0933 Cleansed patient's face with wash clothe per request, lip balm applied and patient given sips of water. No further needs at this time. Breonna Palmer RN 10/07/23 0903 Bonita warmer removed from patient. Oral temp 97.5 F. Physician informed. Breonna Palmer RN 10/07/2347 Return call from ICU, Dr Tinajero. Diane Askew 10/07/23 0639 EMERGENCY DEPARTMENT ENCOUNTER Pt Name: Will Jacinto Birthdate 1965 Date of evaluation: 10/07/2023 ED Provider: Rosaura Mustafa DO CHIEF COMPLAINT Chief Complaint Patient presents with Hypoglycemia HISTORY OF PRESENT ILLNESS (Location/Symptom, Timing/Onset, Context/Setting, Quality, Duration, Modifying Factors, Severity) Note limiting factors. I wore appropriate PPE for the entirety of this encounter. HPI Will Jacinto is a 57 y.o. adult (transgender female to male) with medical history of diabetes, osteomyelitis status post right above-knee amputation, schizophrenia, gastroparesis/intractable nausea/vomiting, endometrial carcinoma who presents to the emergency department from [facility] for hypoglycemia/unresponsiveness. Spoke to Juliane, nurse taking care of him overnight, who reports he was last seen well at 0400 this morning when he asked nursing unit coordinator to turn on fan because he felt warm. Entirety of HPI obtained from transporting EMS staff and NH staff due to patient unresponsiveness. Juliane reports that patient has had poor p.o. intake for last 4 days secondary to nausea/vomiting for which he is prescribed Zofran. Nausea/vomiting per Juliane is not unusual. Patient is additionally a brittle diabetic and on significant mealtime insulin. Last insulin 5 PM (approx 12 hours prior to arrival). Received 260 units Humulin R at noon and 285 units at 5 PM. Juliane was told by prior nurse that he had small volume p.o. intake for dinner at 5p (?some soup). Bxfag-ch-jciu glucose last night was 116 and he was given 3 glasses of apple juice prior to bed. Found unresponsive and diaphoretic at 0445. Ofuqq-lm-otha glucose 36 at that time. Given 2 doses of glucagon which improved his vcosu-es-ecnv glucose to 61. Glucose was 90 upon EMS arrival. EMS gave nothing in transport. Repeat bvqhx-yi-pcek glucose 68 here. Juliane reports that mentation status did not improve prior to being transported despite administered glucagon. Normally awake and oriented x4 with some baseline right lower extremity weakness for which he is wheelchair-bound. No reported other symptoms leading up to being found unresponsive. Nursing Notes were reviewed. REVIEW OF SYSTEMS Review of Systems Negative except per HPI 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) Acquired absence of other toe(s), unspecified side (HCC) Anxiety disorder Bipolar 1 disorder ([facility]) Blood circulation, collateral Cellulitis chronic L lower leg COVID 12/08/2021 Depression Diabetes mellitus ([facility]) Type II, on insulin Disease of blood and blood forming organ Endometrial carcinoma ([facility]) 11/25/2020 Endometrial hyperplasia Foot ulcer ([facility]) Hx of blood clots RLE prior to amputation Hyperlipidemia Hypertension Lymphedema 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, RLE Morbidly obese ([facility]) Muscle weakness Osteomyelitis ([facility]) Osteomyelitis ([facility]) 2019 RLE Other lack of coordination Other specified soft tissue disorders Other symbolic dysfunctions Schizophrenia ([facility]) Sleep apnea no CPAP Venous insufficiency SURGICAL HISTORY Past Surgical History: Procedure Laterality Date ABCESS DRAINAGE Right 09/09/2018 FOOT; ACH COLONOSCOPY 09/19/[address] Hyde DILATION AND CURETTAGE OF UTERUS 05/18/2019 HYSTEROSCOPY 12/23/2021 LEG AMPUTATION THROUGH KNEE Right 06/16/2019 UPPER GASTROINTESTINAL ENDOSCOPY N/A 06/29/2023 Dr Sergio Sibley at [facility]; no specimens WISDOM TOOTH EXTRACTION CURRENT MEDICATIONS Previous Medications ARIPIPRAZOLE (ABILIFY) 10 MG TABLET Every 24 hours. ASPIRIN 81 MG EC TABLET Take 1 tablet by mouth daily. ATORVASTATIN (LIPITOR) 10 MG TABLET Take 1 tablet by mouth daily. CLOTRIMAZOLE (LOTRIMIN) 1 % CREAM Apply topically 2 times daily. DILTIAZEM CD (CARDIZEM CD) 180 MG 24 HR CAPSULE Take 180 mg by mouth daily. DULAGLUTIDE (TRULICITY) 4.5 MG/0.5ML SOLUTION PEN-INJECTOR Inject 4.5 mg under the skin 1 (one) time per week. Every FLUOXETINE (PROZAC) 40 MG CAPSULE Take 40 mg by mouth daily. GABAPENTIN (NEURONTIN) 100 MG CAPSULE Take 100 mg by mouth in the morning and 100 mg before bedtime. INSULIN REGULAR (HUMULIN R U-500 KWIKPEN) 500 UNIT/ML CONCENTRATED INJECTION Inject under the skin 3 times daily. 285 units before breakfast/260 units before lunch/285 units before dinner LACTOBACILLUS ACID-PECTIN (ACIDOPHILUS/CITRUS PECTIN) TABLET Take 1 tablet by mouth in the morning and 1 tablet in the evening. LISINOPRIL 40 MG TABLET Every 24 hours. LORATADINE 10 MG CAPSULE Take by mouth. MAGNESIUM HYDROXIDE (MILK OF MAGNESIA CONCENTRATE) 2400 MG/10ML SUSPENSION SUSPENSION Every 24 hours. MEGESTROL (MEGACE) 20 MG TABLET Take 1 tablet by mouth in the morning and 1 tablet before bedtime. MELATONIN 10 MG TABLET Take 10 mg by mouth Nightly as needed (insomnia). METOCLOPRAMIDE (REGLAN) 10 MG TABLET Take 1 tablet (10 mg) by mouth in the morning and 1 tablet (10 mg) at noon and 1 tablet (10 mg) in the evening and 1 tablet (10 mg) before bedtime. Do all this for 7 days. METOPROLOL TARTRATE (LOPRESSOR) 25 MG TABLET Take 1 tablet by mouth in the morning and 1 tablet before bedtime. MICONAZOLE (MICOTIN) 2 % POWDER Apply topically 2 times daily. ONDANSETRON (ZOFRAN) 4 MG TABLET Take 8 mg by mouth. PANTOPRAZOLE (PROTONIX) 40 MG EC TABLET Take 40 mg by mouth. POLYETHYLENE GLYCOL, PEG, 3350 (GLYCOLAX) 17 GM/SCOOP POWDER Take 17 g by mouth daily. POTASSIUM CHLORIDE CR (K-TAB) 20 MEQ ER TABLET Every 24 hours. ALLERGIES Patient has no known allergies. FAMILY HISTORY Family History Problem Relation Name Age of Onset No Known Problems Mother No Known Problems Father SOCIAL HISTORY Social History Socioeconomic History Marital status: Single Tobacco Use Smoking status: Never Smokeless tobacco: Never Vaping Use Vaping Use: Never used Substance and Sexual Activity Alcohol use: No Drug use: Never Social Determinants of Health Intimate Partner Violence: Not At Risk (08/18/2023) Humiliation, Afraid, Rape, and Kick questionnaire Fear of Current or Ex-Partner: No Emotionally Abused: No Physically Abused: No Sexually Abused: No SCREENINGS PHYSICAL EXAM ED Triage Vitals Temp Pulse Resp BP -- -- -- -- SpO2 Temp src Heart Rate Source Patient Position -- -- -- -- BP Location FiO2 (%) -- -- Physical Exam BP 124/57 (BP Location: Right arm, Patient Position: Lying) Pulse 105 Temp (!) 33 C (91.4 F) (Rectal) Resp 12 SpO2 96% Constitutional: Unresponsive, heart rate/blood pressure/pulse ox adequate without intervention, grimaces to pain, actively resists forced opening of eyes, not following commands Eyes: PERRL Neck: neck supple, trachea midline Lungs: CTABL, no wheezing, no rales Heart: Tachycardic, no murmurs Vascular: Delayed cap refill, symmetric bilateral radial pulses, status post right above-knee amputation Neuro: Unresponsive, not answering questions or following commands, grimaces to painful stimuli, holds right arm in the air when lifted over his head, pupils equal and reactive to light DIAGNOSTIC RESULTS RADIOLOGY (Per Emergency Physician): CT head pending CT abdomen/pelvis pending Chest x-ray pending Interpretation per the Radiologist below, if available at the time of this note: XR chest 1 view (Results Pending) CT head wo IV contrast (Results Pending) CT abdomen pelvis wo IV contrast (Results Pending) LABS: Labs Reviewed CBC WITH AUTO DIFFERENTIAL - Abnormal Result Value Auto WBC 13.3 (*) RBC 4.75 Hemoglobin 13.2 Hematocrit 41.5 MCV 87.4 MCH 27.8 MCHC 31.8 (*) RDW 14.2 Platelets 438 MPV 9.4 Neutrophils Relative 85.4 (*) Lymphocytes Relative 7.5 (*) Monocytes Relative 5.9 Eosinophils Relative 0.2 (*) Basophils Relative 0.2 Immature Grans % 0.8 (*) Neutrophils Absolute 11.3 (*) Lymphocytes Absolute 1.0 Monocytes Absolute 0.8 Eosinophils Absolute 0.0 Basophils Absolute 0.0 Immature Grans Absolute 0.1 (*) COMPREHENSIVE METABOLIC PANEL - Abnormal SODIUM 138 POTASSIUM 4.4 CHLORIDE 100 CARBON DIOXIDE 27 ANION GAP 11 UREA NITROGEN 20 CREATININE 0.74 GLUCOSE 120 (*) CALCIUM 8.8 AST (SGOT) 36 ALT 46 ALKALINE PHOSPHATASE 133 (*) ALBUMIN 4.1 BILIRUBIN, TOTAL 0.4 TOTAL PROTEIN 7.7 eGFR >90.0 POCT GLUCOSE METER UNSOLICITED RESULTS - Abnormal Glucose 68 (*) Narrative: Performed by: [facility], [address] [place] [address] CLIA ID: [id number] LACTIC ACID WITH REFLEX - Normal LACTIC ACID 1.2 POCT GLUCOSE METER UNSOLICITED RESULTS - Normal Glucose 100 Narrative: Performed by: [facility], [address] [place] [address] CLIA ID: [id number] BLOOD CULTURE URINE CULTURE RESPIRATORY PATHOGENS PANEL BY PCR BLOOD CULTURE COMPLETE URINALYSIS WITH REFLEX TO CULTURE Narrative: The following orders were created for panel order Urinalysis Complete with reflex to Culture. Procedure Abnormality Status --------- ------ Complete Urinalysis[[id number]] Please view results for these tests on the individual orders. COMPLETE URINALYSIS POCT GLUCOSE METER POCT GLUCOSE METER POCT GLUCOSE METER All other labs were within normal range or not returned as of this dictation. EMERGENCY DEPARTMENT COURSE and DIFFERENTIAL DIAGNOSIS/MDM: Vitals: Vitals: 10/07/23 0544 BP: 124/57 BP Location: Right arm Patient Position: Lying Pulse: 105 Resp: 12 Temp: (!) 33 C (91.4 F) TempSrc: Rectal SpO2: 96% Will Jacinto is a 57 y.o. adult (transgender female to male) with medical history of diabetes, osteomyelitis status post right above-knee amputation, schizophrenia, gastroparesis/intractable nausea/vomiting, endometrial carcinoma who presents to the emergency department from [facility] for hypoglycemia/unresponsiveness. Spoke to Juliane, nurse taking care of him overnight, who reports he was last seen well at 0400 this morning when he asked nursing unit coordinator to turn on fan because he felt warm. Entirety of HPI obtained from transporting EMS staff and [facility] staff due to patient unresponsiveness. Juliane reports that patient has had poor p.o. intake for last 4 days secondary to nausea/vomiting for which he is prescribed Zofran. Nausea/vomiting per Juliane is not unusual. Patient is additionally a brittle diabetic and on significant mealtime insulin. Last insulin 5 PM (approx 12 hours prior to arrival). Received 260 units Humulin R at noon and 285 units at 5 PM. Juliane was told by prior nurse that he had small volume p.o. intake for dinner at 5p (?some soup). Rnpzc-wm-ufpj glucose last night was 116 and he was given 3 glasses of apple juice prior to bed. Found unresponsive and diaphoretic at 0445. Zfwxy-rh-okzb glucose 36 at that time. Given 2 doses of glucagon which improved his eswfl-sa-jytw glucose to 61. Glucose was 90 upon EMS arrival. EMS gave nothing in transport. Repeat mgqip-pb-kvwj glucose 68 here. Juliane reports that mentation status did not improve prior to being transported despite administered glucagon. Normally awake and oriented x4 with some baseline right lower extremity weakness for which he is wheelchair-bound. No reported other symptoms leading up to being found unresponsive. Considered hypoglycemia, sepsis, intra-abdominal catastrophe, intracranial catastrophe. Blood pressure stable. Heart rate mildly tachycardic. Breathing comfortably and saturating well on room air. Patient noted to be profoundly hypothermic at 33 C. Aramndo hugger placed. Care delayed secondary to acquisition of IV access. Patient necessitating ultrasound-guided IV line by myself. Repeat enuwc-hu-tuhv glucose upon obtaining IV line 100. Amp of D50 given. Sepsis labs including warmed 1 L IV fluids and broad-spectrum antibiotics as well as CT imaging of the head and abdomen ordered to evaluate symptomology. Labs resulting with mild leukocytosis at 13.3. No renal dysfunction. Lactic acid within normal limits. Discussed case with ICU attending Dr. Tinajero who accepted patient for transfer. After getting off the phone with ICU attending, notified by nursing staff that mentation has significantly improved. Patient now awake and answering questions. Oriented x2 (self and time). Patient denying any pain complaints at present. Denies abdominal pain. CT imaging of abdomen/pelvis canceled given patient with baseline history of gastroparesis and presently denying any abdominal plain complaints. Abdomen soft and nontender on repeat evaluation. Disposition changed to [facility] telemetry. Accepted by Dr. Spring as telemetry admit. plan to obtain CT imaging of head and chest x-ray prior to admission. Will serially check glucose to ensure stable and no need for dextrose containing fluids. We will wean Armando hugger as able. Total critical care time today provided was at least 35 minutes. This excludes seperately billable procedure. Critical care time provided for hypothermia/altered mental status/difficult IV access that required close evaluation and/or intervention with concern for patient decompensation. PROCEDURES: Unless otherwise noted below, none Procedures FINAL IMPRESSION 1. Hypoglycemia 2. Hypothermia, initial encounter 3. Altered mental status, unspecified altered mental status type DISPOSITION Admit 10/07/2023 07:09:36 AM PATIENT REFERRED TO: No follow-up provider specified. DISCHARGE MEDICATIONS: New Prescriptions No medications on file (Comment: Please note this report has been produced using speech recognition software and may contain errors related to that system including errors in grammar, punctuation, and spelling, as well as words and phrases that may be inappropriate. If there are any questions or concerns please feel free to contact the dictating provider for clarification.) Rosaura Mustafa DO (electronically signed) Emergency Medicine Provider Rosaura Mustafa DO 10/07/23 0657 Rosaura Mustafa DO 10/07/23 0710 Maria Luisa Jacinto, age 57, came to ED6 by [facility] for a chief complaint of hypoglycemia. [facility] stated prison last seen him Aox3 at around 0400. forestry aide went in to check on pt and pt was unresponsive with a blood sugar of 36. Nurses at prison gave him 2 glucagon IM injections and pt's blood sugar came up to 60. EMS reported a blood sugar of 90. On assessment, pt's rectal temp was 91.4F. Blood sugar was 63. Bear hugger applied. Physician put in 20G IV using the ultrasound. Amp of Dextrose given and liter of NS warmed infusing. sprue knocker applied. Vitals obtained. documented in this encounter [facility] 09-20-2023 Telephone encounter Note Please keep doses the same thank you [facility] Work Phone: 09-20-2023 Miscellaneous Notes Please keep doses the same thank you Images from the original note were not included. Patient BGL documented in this encounter [facility] 09-20-2023 Telephone encounter Note Images from the original note were not included. Patient BGL [facility] 08-31-2023 Telephone encounter Note Faxed response to [facility]. Thank you! [facility] 08-31-2023 Miscellaneous Notes [facility]! Please keep doses the same thank you Images from the original note were not included. Patient's BGL documented in this encounter [facility] 08-30-2023 Telephone encounter Note Please keep doses the same [facility]: [facility]-30-[facility]23 Telephone encounter Note Images from the original note were not included. Patient's BGL [facility] 08-19-2023 Note Formatting of this n ote might be different from the original. RN called asking me to sign the med rec so the patient can be transported to < Signed the med reconciliation form [facility]: 08-19-2023 Note Formatting of this n ote might be different from the original. RN called asking me to sign the med rec so the patient can be transported to SNF< Signed the med reconciliation form [facility] Phone: 08-19-2023 Miscellaneous Notes RN called asking me to sign the med rec so the patient can be transported to SNF< Signed the med reconciliation form Spoke with patient. Agreeable to returning back to [facility]. Updated facility via careport of discharge today and transport time of 430pm. WIRE STITCHER OPERATOR tasked to send discharge packet to facility. . Plan for patient to discharge today. Discharge order has been placed. Transportation arranged through [facility] by cot set for 4:30 pm. Notified RN and covering TCC of this. Will update patient at bedside. SW remains available if any other needs or concerns arise. Discharge med list transmitted to return back to [facility] via [facility] per TCC request. Referral [facility]. Await review and response regarding ability to accept. TCC notified. Inpatient status from [facility] with abdominal pain. Admitted to F. ID consulted as patient was in ER 10 days ago with diagnosis of pyelonephritis. Started on po diflucan. Endocrinology consulted. BS ac and hs with ss coverage. BS was 29 on 08/17. BS 223 this am. Urine cultures on 08/08 positive for klebsiella(per ID note adequately treated with antimicrobial for last 10 days). Did require apresoline iv x 1 throughout the night.Did task WIRE STITCHER OPERATOR to send referral to [facility]. Discharge plan is to return to [facility] when medically stable... Problem: Pain Goal: My pain/discomfort is manageable Outcome: Progressing met Ice therapy offer/repositioning Problem: Safety Goal: Patient will be injury free during hospitalization Outcome: Progressing met Educate on using call light/ frequent rounding documented in this encounter [facility] 08-19-2023 History of Presen t illness Narrative Report called to Ana at [facility]. Department of Internal Medicine Division of Endocrinology, Diabetes, & Metabolism Endocrinology Note Patient Name: Will Jacinto : 1965 AGE: 57 y.o. Room/Bed: [facility]/[address] Admission Date: 08/17/2023 Visit Date: 08/19/2023 Reason for Endocrine Consult: DM2 Uncontrolled Provider/Team Requesting Consult: Dr. 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 PLAN: Insulin U-500 100 units 3 times daily with meals Humalog medium dose sliding scale 3 times daily with meals Resume Trulicity when returns to SNF ICU goal <180 GMF goal <150 POCT BG ACHS Hypoglycemia per protocol Carb controlled diet ANTICIPATED ENDOCRINE HOME GOING RECOMMENDATIONS: Optimized for Discharge from Endocrine standpoint: Yes Home Going Endocrine Rx Recommendations-- Trulicity 4.5 mg weekly on Insulin U-500 U-500 280 units 3 times daily with meals Follow-up: [facility] endocrinology SUBJECTIVE/HPI: CHIEF COMPLAINT: Chief Complaint Patient presents with Abdominal Pain X 1 week Will Jacinto is a 57 y.o. adult who presents to the emergency department with upper abdominal pain nausea vomiting for the past week. Was seen and evaluated 1 week ago and diagnosed with pyelonephritis. States he is taking the antibiotics as prescribed with persistent symptoms. States feels like when he has had an ileus in the past. Pmhx: Aka Bipolar disorder Cellulitis Covid Depression Dm2 severe insulin resistance Endometrial cancer Hlp Htn Schizophrenia Osteomylelits John BGL listed below Patient given IV dextrose for hypoglycemic event 08/17/2023 Current orders while hospitalized: Trulicity 4.5 mg weekly Insulin regular U-500 280 units 3 times daily Humalog 15 units one-time dose given 08/18/2023 Patient alert and oriented sitting up in bed. Tolerating meals Plan is for discharge to SNF today Reports nausea but no vomiting today Type of DM: 2 Onset of DM: 1991 Home DM Medication Regimen: u500 285 units meals DM control (last A1c/glucose data): Lab Results Component Value Date HGBA1C 10.1 (H) 02/09/2023 Glucose Date/Time Value Ref Range Status 08/19/2023 11:22 AM 255 (H) 70 - 100 mg/dL Final 08/19/2023 08:10 AM 236 (H) 70 - 100 mg/dL Final 08/18/2023 07:50 PM 294 (H) 70 - 100 mg/dL Final 08/18/2023 04:25 PM 339 (H) 70 - 100 mg/dL Final 08/18/2023 02:12 PM 363 (H) 70 - 100 mg/dL Final 08/18/2023 12:06 PM 398 (H) 70 - 100 mg/dL Final Review of Systems Constitutional: Positive for appetite change. Gastrointestinal: Positive for abdominal pain and nausea. Negative for vomiting. ROS negative except for those mentioned in HPI. OBJECTIVE: Vitals: 08/18/23 1949 08/19/23 0118 08/19/23 0351 08/19/23 0808 BP: (!) 176/87 (!) 188/106 115/70 133/66 BP Location: Right arm Patient Position: Lying Pulse: 90 83 85 Resp: 18 Temp: 37.1 C (98.7 F) TempSrc: Temporal SpO2: 97% Weight: Height: Physical Exam Vitals and nursing note reviewed. Constitutional: Appearance: He is obese. He is ill-appearing. HENT: Head: Normocephalic. Cardiovascular: Rate and Rhythm: Normal rate and regular rhythm. Pulses: Normal pulses. Dorsalis pedis pulses are 2+ on the left side. Posterior tibial pulses are 2+ on the left side. Heart sounds: Normal heart sounds. No murmur heard. Pulmonary: Effort: Pulmonary effort is normal. No respiratory distress. Breath sounds: Normal breath sounds. Musculoskeletal: General: Swelling present. Right Lower Extremity: Right leg is amputated above knee. Neurological: Mental Status: He is alert. 24 hour intake/output: Intake/Output Summary (Last 24 hours) at 08/19/2023 1250 Last data filed at 08/19/2023 1100 Gross per 24 hour Intake -- Output 1000 ml Net -1000 ml Diet: Adult diet Regular; 5 carb choices (75 gm/meal) Medications (as per EMR): HomeMeds: Current Outpatient Medications Medication Instructions ARIPiprazole (Abilify) 10 MG tablet Every 24 hours aspirin 81 MG EC tablet 1 tablet, Oral, Daily atorvastatin (Lipitor) 10 MG tablet 1 tablet, Oral, Daily clotrimazole (Lotrimin) 1 % cream Topical, 2 times daily dilTIAZem CD (CARDIZEM CD) 180 mg, Oral, Daily dulaglutide (TRULICITY) 4.5 mg, SubCUTAneous, Weekly, Every [START ON 08/20/2023] fluconazole (DIFLUCAN) 200 mg, Oral, Daily FLUoxetine (PROZAC) 40 mg, Oral, Daily gabapentin (NEURONTIN) 100 mg, Oral, 2 times daily insulin regular (HumuLIN R U-500 KWIKPEN) 500 UNIT/ML CONCENTRATED injection SubCUTAneous, 3 times daily, 285 units before breakfast/260 units before lunch/285 units before dinner Lactobacillus Acid-Pectin (Acidophilus/Rosemead Pectin) tablet 1 tablet, Oral, 2 times daily lisinopril 40 MG tablet Every 24 hours Loratadine 10 MG capsule Oral magnesium hydroxide (Milk of Magnesia Concentrate) 2400 MG/10ML suspension suspension Every 24 hours megestrol (Megace) 20 MG tablet 1 tablet, Oral, 2 times daily melatonin 10 mg, Oral, Nightly PRN metoclopramide (REGLAN) 10 mg, Oral, 4 times daily metoprolol tartrate (Lopressor) 25 MG tablet 1 tablet, Oral, 2 times daily miconazole (Micotin) 2 % powder Topical, 2 times daily ondansetron (ZOFRAN) 8 mg, Oral pantoprazole (PROTONIX) 40 mg, Oral polyethylene glycol (PEG) 3350 (GLYCOLAX) 17 g, Oral, Daily potassium chloride CR (K-Tab) 20 MEQ ER tablet Every 24 hours Scheduled Meds:acidophilus lactobacillus, 1 capsule, Oral, BID ARIPiprazole, 10 mg, Oral, Daily aspirin, 81 mg, Oral, Daily atorvastatin, 10 mg, Oral, Daily clotrimazole, , Topical, BID dilTIAZem CD, 180 mg, Oral, Daily enoxaparin, 30 mg, SubCUTAneous, 2 times per day fluconazole, 200 mg, Oral, Daily FLUoxetine, 40 mg, Oral, Daily gabapentin, 100 mg, Oral, BID influenza, 0.5 mL, IntraMUSCular, Prior to discharge insulin lispro, 0-12 Units, SubCUTAneous, TID WC insulin regular, 100 Units, SubCUTAneous, TID lisinopril, 40 mg, Oral, Daily megestrol, 20 mg, Oral, BID metoclopramide, 10 mg, Oral, 4x daily metoprolol tartrate, 25 mg, Oral, BID pantoprazole, 40 mg, Oral, qAM AC polyethylene glycol (PEG) 3350, 17 g, Oral, Daily potassium chloride CR, 20 mEq, Oral, q24h Continuous Infusions: PRN Meds:PRN medications: acetaminophen OR acetaminophen, dextrose, dextrose, glucagon (rDNA), glucose, hydrALAZINE, ondansetron ODT OR ondansetron, polyethylene glycol (PEG) 3350 Diagnostic Workup: I reviewed pertinent Laboratory results, Radiographic results, and Other Clinical Notes at the time of today's encounter. Labs: No components found for: LABA1C No components found for: "EAG" Lab Results Component Value Date NA 130 (L) 08/19/2023 K 4.4 08/19/2023 CL 99 08/19/2023 CO2 26 08/19/2023 BUN 23 08/19/2023 CREATININE 1.00 08/19/2023 GLUCOSE 223 (H) 08/19/2023 CALCIUM 8.4 08/19/2023 Lab Results Component Value Date CHLPL 125 08/29/2020 Lab Results Component Value Date TRIG 190 08/29/2020 Lab Results Component Value Date HDL 31 (A) 08/29/2020 Lab Results Component Value Date LDLCALC 56 08/29/2020 Lab Results Component Value Date VLDL 38 08/29/2020 No results found for: CHOLHDLRATIO No results found for: [id number] Lab Results Component Value Date TSH 2.356 11/26/2020 Radiology reportsas per the Radiologist Radiology: ECG 12 lead Result Date: 08/17/2023 Sinus bradycardia Left bundle branch block Prolonged QT interval Compared to ECG 08/08/2023 06:58:13 Left bundle-branch block now present Sinus tachycardia no longer present Left anterior fascicular block no longer present Left ventricular hypertrophy no longer present CT abdomen pelvis w contrast Result Date: 08/17/2023 Patient Name: WILL JACINTO : 1965 Exam Date/Time: 08/17/2023 15:08 Procedure: CT ABDOMEN PELVIS W CONTRAST Ordering Provider: BURGOS TYLER Reason For Exam: upper abd pain, nausea, vomit, eval for infection, obstruction EXAMINATION: CT abdomen/pelvis Indication: upper abd pain, nausea, vomit, eval for infection, obstruction TECHNIQUE: Axial CT images of the abdomen/pelvis were obtained without oral and with IV contrast (75 cc Isovue 370) at 3 mm intervals. Images were acquired from the lung bases through the symphysis pubis. Dose reduction was employed with automatic exposure control. Coronal and sagittal reconstructions were also provided for review. FINDINGS: The patient's arm is located along side the torso, which causes some artifact and limits assessment Question subtle fat stranding adjacent to the mid left ureter on axial image 116. Slight prominence of the left renal collecting system is present. The solid organs in the upper abdomen are grossly unremarkable. The pelvic contents are grossly unremarkable. The aorta is of normal caliber. No abdominal/pelvic adenopathy present. The large and small bowel are grossly unremarkable. The stomach is grossly unremarkable. Fairly extensive degenerative changes of the spine are present with bridging osteophytes or syndesmophytes throughout the lower thoracic and lumbar spine. Fairly extensive degenerative facet changes are present which does contribute to central canal stenosis within the lumbar spine. 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 Mild scarring or atelectasis of the lung bases is noted. Right middle lobe pulmonary nodule measures approximately 8 mm, somewhat similar to 08/08/2023 and increased in size since November 2020. Limited study due to the patient's arms lying aside the torso.. Slight prominence of the left renal pelvis. Question subtle fat stranding adjacent to the mid left ureter. Correlate with urinalysis and clinically for recently passed renal stone. Enlarging right middle lobe pulmonary nodule, measuring approximately 8 mm. Short-term interval follow-up chest CT recommended. Findings within the spine suggestive of DISH versus ankylosing spondylitis. 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 other toe(s), unspecified side (HCC) Anxiety disorder Bipolar 1 disorder (HCC) Blood circulation, collateral Cellulitis chronic L lower leg COVID 12/08/2021 Depression Diabetes mellitus (HCC) Type II, on insulin Disease of blood and blood forming organ Endometrial carcinoma (HCC) 11/25/2020 Endometrial hyperplasia Foot ulcer (HCC) Hx of blood clots RLE prior to amputation Hyperlipidemia Hypertension Lymphedema 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; no specimens WISDOM TOOTH EXTRACTION Allergy(ies): No Known Allergies Family History: Family History Problem Relation Name Age of Onset No Known Problems Mother No Known Problems Father Social History: Social History Tobacco Use Smoking status: Never Smokeless tobacco: Never Vaping Use Vaping Use: Never used Substance Use Topics Alcohol use: No Drug use: Never Portions of the information within this encounter were entered using an electronic dictation system. Best attempts were made to edit/proofread the information prior to note completion. Despite the review of information, some errors may remain. If there are questions related to the information contained within the note please contact the signing physician directly. I spent 35 minutes with the pt which involved coordination of care, medical evaluation, review of records, and/or counseling of the pt regarding his/her condition/disease state/prognosis on the date of this note. Images from the original note were not included. [facility] - Infectious Diseases Attending Progress Note Subjective: Following for "Complicated UTI." Patient without new complaints today. States he still feels sick, meaning N/V/abdominal pain. States his urine feels like it is clearing up. He denies any discharge or yeast changes. He has no new fever or chills. He has no new exacerbating or alleviating factors. Vitals: Patient Vitals for the past 24 hrs: BP Temp Temp src Pulse Resp SpO2 08/19/23 0808 133/66 37.1 C (98.7 F) Temporal 85 18 97 % 08/19/23 0351 115/70 -- -- 83 -- -- 08/19/23 0118 (!) 188/106 -- -- -- -- -- 08/18/23 1949 (!) 176/87 -- -- 90 -- -- 08/18/23 193 -- (!) 35.9 C (96.7 F) Temporal 90 20 97 % 08/18/23 1551 123/85 36.6 C (97.8 F) Temporal 91 16 95 % 08/18/23 1250 (!) 150/67 -- -- 91 16 95 % Physical Exam: Physical Exam Vitals and nursing note reviewed. Constitutional: General: He is not in acute distress. Appearance: Normal appearance. He is well-developed. He is obese. He is not ill-appearing. HENT: Head: Normocephalic and atraumatic. Right Ear: External ear normal. Left Ear: External ear normal. Nose: Nose normal. Mouth/Throat: Mouth: Mucous membranes are moist. Pharynx: Oropharynx is clear. No oropharyngeal exudate. Comments: Male feature facial hair distribution Eyes: General: No scleral icterus. Extraocular Movements: Extraocular movements intact. Conjunctiva/sclera: Conjunctivae normal. Pupils: Pupils are equal, round, and reactive to light. Cardiovascular: Rate and Rhythm: Normal rate and regular rhythm. Pulses: Normal pulses. Heart sounds: Normal heart sounds. No murmur heard. No friction rub. No gallop. Pulmonary: Effort: Pulmonary effort is normal. No respiratory distress. Breath sounds: Normal breath sounds. No stridor. No wheezing, rhonchi or rales. Abdominal: General: Abdomen is flat. There is no distension. Palpations: Abdomen is soft. There is no mass. Tenderness: There is no abdominal tenderness. There is no guarding or rebound. Hernia: No hernia is present. Comments: Mild diffuse discomfort. Genitourinary: Comments: Female features. Musculoskeletal: General: No swelling or deformity. Normal range of motion. Right lower leg: No edema. Left lower leg: No edema. Comments: R AKA. L with chronic inflammatory changes, tinea pedis. Skin: General: Skin is warm and dry. Coloration: Skin is not jaundiced. Findings: No rash. Comments: Yeast smell Neurological: General: No focal deficit present. Mental Status: He is alert and oriented to person, place, and time. Mental status is at baseline. Cranial Nerves: No cranial nerve deficit. Deep Tendon Reflexes: Reflexes normal. Psychiatric: Mood and Affect: Mood normal. Behavior: Behavior normal. Thought Content: Thought content normal. Judgment: Judgment normal. Labs: Recent Labs 08/17/23 1336 08/17/23 1758 08/18/23 0340 08/19/23 0433 NA 132* -- 130* 130* K 4.8 -- 4.2 4.4 CL 99 -- 100 99 CO2 29 -- 24 26 BUN 17 -- 24 23 CREATININE 0.72 -- 0.76 1.00 GLUCOSE 71 29* 311* 223* CALCIUM 8.8 -- 8.0* 8.4 PROT 7.1 -- -- -- BILITOT 0.5 -- -- -- ALKPHOS 136* -- -- -- AST 29 -- -- -- ALT 47 -- -- -- Recent Labs 08/17/23 1336 08/18/23 0340 08/19/23 0433 WBC 14.7* 13.2* 8.6 HGB 12.5 12.2 12.2 HCT 37.7 36.1 36.3 PLT 468* 388 402 LYMPHOPCT 24.4 17.5* -- MONOPCT 8.5 8.8 -- BASOPCT 0.8 0.7 -- NEUTROABS 9.7* 9.5* -- Micro: No results for input(s): "COVID19" in the last 72 hours. 08/08 Urine K pneumo Klebsiella pneumoniae BROTH MICRODILUTION Amoxicillin / Clavulanate <=2 ug/ml Susceptible Ampicillin Resistant Ampicillin / Sulbactam 4 ug/ml Susceptible Aztreonam <=1 ug/ml Susceptible Cefazolin <=4 ug/ml Susceptible Cefepime <=1 ug/ml Susceptible Ceftriaxone <=1 ug/ml Susceptible Ciprofloxacin <=0.25 ug/ml Susceptible Gentamicin <=1 ug/ml Susceptible Meropenem <=0.25 ug/ml Susceptible Nitrofurantoin 128 ug/ml Resistant Piperacillin / Tazobactam <=4 ug/ml Susceptible Trimethoprim / Sulfamethoxazole <=20 ug/ml Susceptible Lines: PIV Radiography/Echo/Other: 08/17 CT Abd/pelvis: IMPRESSION: Limited study due to the patient's arms lying aside the torso.. Slight prominence of the left renal pelvis. Question subtle fat stranding adjacent to the mid left ureter. Correlate with urinalysis and clinically for recently passed renal stone. Enlarging right middle lobe pulmonary nodule, measuring approximately 8 mm. Short-term interval follow-up chest CT recommended. Findings within the spine suggestive of DISH versus ankylosing spondylitis. 08/08 CT Abd/Pelvis: IMPRESSION: ABDOMEN: Inflammatory fat stranding in the region of the left renal pelvis and along the left ureter. This is a nonspecific finding. Differential includes a recently passed stone versus an infectious process. No areas of nonenhancement are identified to suggest pyelonephritis. Correlation with urinalysis is recommended. Appendix not visualized however there are no inflammatory changes within the right lower quadrant. 7 mm nodule right lung base shows interval increase in size when dating back to 2021 where it measured 4 mm. Antimicrobials,Start/End Dates: Cefpodoxime 08/08-08/17 Ceftriaxone 08/17- Fluconazole 08/18- Impression: Leukocytosis Recent bacteriuria with k pneumo L renal pelvis ureteral inflammation ? Recent passed stone vs. Infection. Urinary frequency sensation Transgender F->M, female organs. Intertrigo ? yeast Plan: Patient with two recent UAs that had minimal if any pyuria. This is not really consistent with pyelonephritis, though if he had pyelo, he has been adequately treated with antimicrobial for last 10 days. Does not have new urine ordered for culture and would not pursue at this point. Leukocytosis on presentation is resolved. CT findings are not overwhelmingly convincing for pyelo. Have some suspicion that being F->M with female features, possible that he may be having yeast issues. Clinically, has evidence of skin yeast. After signle dose of fluconazole, he seems to have improved symptoms. Would suggest no additional antibacterial. Use fluconazole for brief course and antifungal to L foot to address tinea pedis. No acute treatment for chronic L leg inflammation. Based on diagnoses and management, combination of acute and chronic problems, exacerbations and/or acuity, this visit should be considered to be of moderate complexity. Art Reddy MD, [facility], [place] Nutrition rescreen complete. Pt assigned a level one for nutrition care. Images from the original note were not included. PHYSICAL THERAPY [facility] Name/MRN: Maria Luisa Jacinto ([id number]) Date: 08/18/2023 PT evaluation orders received and chart review completed. 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 No acute PT needs identified. Rec return to [facility] with no PT. Mai Argueta PT Images from the original note were not included. Occupational Therapy OCCUPATIONAL THERAPY [facility] Name/MRN: Maria Luisa Jacinto ([id number]) Date: 08/18/2023 Therapy eval and treat orders received. Chart review complete. OK to see per RN. Introduced self and role to pt. Per discussion with pt, pt utilizes a deedee to / from a w/c and does not complete sit<>stand, slide board, or bed mobility transfers at baseline. Pt is not appropriate for acute therapy services at this time. Will discontinue orders at this time. Scooter Wyatt OT documented in this encounter [facility] 08-19-2023 Note Formatting of this n ote might be different from the original. Spoke with patient. Agreeable to returning back to [facility]. Updated facility via careport of discharge today and transport time of 430pm. WIRE STITCHER OPERATOR tasked to send discharge packet to facility. . [facility] 08-19-2023 Note Formatting of this n ote might be different from the original. Spoke with patient. Agreeable to returning back to [facility]. Updated facility via careport of discharge today and transport time of 430pm. WIRE STITCHER OPERATOR tasked to send discharge packet to facility. . [facility] 08-19-2023 Note Formatting of this n ote might be different from the original. Plan for patient to discharge today. Discharge order has been placed. Transportation arranged through [facility] by cot set for 4:30 pm. Notified RN and covering TCC of this. Will update patient at bedside. SW remains available if any other needs or concerns arise. [facility] 08-19-2023 Note Formatting of this n ote might be different from the original. Plan for patient to discharge today. Discharge order has been placed. Transportation arranged through [facility] by cot set for 4:30 pm. Notified RN and covering TCC of this. Will update patient at bedside. SW remains available if any other needs or concerns arise. [facility] 08-19-2023 Note Formatting of this n ote might be different from the original. Discharge med list transmitted to return back to [facility] via Careport per TCC request. [facility] 08-19-2023 Note Formatting of this n ote might be different from the original. Discharge med list transmitted to return back to [facility] via [facility]port per TCC request. [facility] 08-19-2023 Hospital course Narrative Discharge Summary Will Jacinto : 1965 ADMIT DATE: 08/17/2023 DISCHARGE DATE: 08/19/2023 PRIMARY CARE PHYSICIAN: Jared Guzman VISIT STATUS: observation CODE STATUS: Full Code DISCHARGE DIAGNOSES: Principal Problem: Upper abdominal pain HOSPITAL COURSE: Will Jacinto is a 57 y.o. adult who presents to the emergency department with upper abdominal pain nausea vomiting for the past week. Was seen and evaluated 1 week ago and diagnosed with pyelonephritis. States he is taking the antibiotics as prescribed with persistent symptoms. States feels like when he has had an ileus in the past. No other chest pain shortness of breath fevers or chills. No changes in bowel or bladder habits. ID saw him and didn't feel he needed anitbiotics for pyelo. They felt this was more due to yeast so he is on diflucan now. I think he can go back to [facility] today SIGNIFICANT DIAGNOSTIC STUDIES: Labs xray CONSULTANTS: ID RECOMMENDED NEXT STEPS: SNF DISCHARGE MEDICATIONS: Medication List START taking these medications clotrimazole 1 % cream Commonly known as: Lotrimin Apply topically 2 times daily. fluconazole 200 MG tablet Commonly known as: Diflucan Take 1 tablet (200 mg) by mouth daily for 12 doses. Start taking on: August 20, 2023 CONTINUE taking these medications Acidophilus/Rosemead Pectin tablet ARIPiprazole 10 MG tablet Commonly known as: Abilify aspirin 81 MG EC tablet atorvastatin 10 MG tablet Commonly known as: Lipitor dilTIAZem CD 180 MG 24 hr capsule Commonly known as: Cardizem CD dulaglutide 4.5 MG/0.5ML solution pen-injector Commonly known as: Trulicity FLUoxetine 40 MG capsule Commonly known as: PROzac gabapentin 100 MG capsule Commonly known as: Neurontin HumuLIN R U-500 KWIKPEN 500 UNIT/ML CONCENTRATED injection Generic drug: insulin regular lisinopril 40 MG tablet Loratadine 10 MG capsule megestrol 20 MG tablet Commonly known as: Megace melatonin 10 MG tablet metoclopramide 10 MG tablet Commonly known as: Reglan Take 1 tablet (10 mg) by mouth in the morning and 1 tablet (10 mg) at noon and 1 tablet (10 mg) in the evening and 1 tablet (10 mg) before bedtime. Do all this for 7 days. metoprolol tartrate 25 MG tablet Commonly known as: Lopressor miconazole 2 % powder Commonly known as: Micotin Milk of Magnesia Concentrate 2400 MG/10ML suspension suspension Generic drug: magnesium hydroxide ondansetron 4 MG tablet Commonly known as: Zofran pantoprazole 40 MG EC tablet Commonly known as: ProtoNix polyethylene glycol (PEG) 3350 17 GM/SCOOP powder Commonly known as: Glycolax potassium chloride CR 20 MEQ ER tablet Commonly known as: K-Tab STOP taking these medications cefpodoxime 200 MG tablet Commonly known as: Vantin Where to Get Your Medications Information about where to get these medications is not yet available Ask your nurse or doctor about these medications clotrimazole 1 % cream fluconazole 200 MG tablet DIET: Adult diet Regular; 5 carb choices (75 gm/meal) ACTIVITY: Up with assist COMPLEXITY OF FOLLOW UP: [] Moderate Complexity: follow up within 7-14 calendar days (05505) [] Severe Complexity: follow up within 7 calendar days (11944) FOLLOW UP TESTING, PENDING RESULTS OR REFERRALS AT TRANSITIONAL CARE VISIT: [] Yes [] No PENDING STUDIES: none DISPOSITION: Skilled Facility FACILITY/HOME CARE AGENCY NAME: Follow up with Yohana at the SNF INSTRUCTIONS TO MA/SW: Please call patient on day after discharge (must document patient contacted within 2 business days of discharge). FOLLOW UP QUESTIONS FOR MA/SW: 1. Did you get medications filled and taking them as instructed from discharge? 2. Are you following your discharge instructions from your hospital stay? 3. Please confirm patient is scheduled for a follow up appointment within the above time frame. DISCHARGE TIME:>30 minutes SIGNED: NABIL HILL DO 08/19/2023, 10:09 AM documented in this encounter [facility] 08-19-2023 Note Formatting of this n ote might be different from the original. Referral placed to return back to [facility] via Careport per TCC request. Await review and response regarding ability to accept. TCC notified. [facility] 08-19-2023 Note Formatting of this n ote might be different from the original. Referral placed to return back to [facility] via Careport per TCC request. Await review and response regarding ability to accept. TCC notified. [facility] 08-19-2023 Hospital Discharg e instructions Kota Luque RN - 08/19/2023 7:21 AM EDT Continuity of Care Form Patient Name: Will Jacinto : 1965 Admit date: 08/17/2023 Discharge date: Code Status Order: Full Code Advance Directives: N Admitting Physician: Nabil Hill DO PCP: Jared Guzman Discharging Nurse: kota luque Discharging Hospital Unit/Room#: B1-143/B1-143 A Discharging Unit Emergency Contact: Extended Emergency Contact Information Primary Emergency Contact: SangitaTammyh Relation: Relative Secondary Emergency Contact: Carola Lubin Mobile Relation: Other Past Surgical History: Past Surgical History: Procedure Laterality Date ABCESS DRAINAGE Right 09/09/2018 FOOT; [facility] COLONOSCOPY 09/19/[address] Hyde DILATION AND CURETTAGE OF UTERUS 05/18/2019 HYSTEROSCOPY 12/23/2021 LEG AMPUTATION THROUGH KNEE Right 06/16/2019 UPPER GASTROINTESTINAL ENDOSCOPY N/A 06/29/2023 Dr Sergio Sibley at [facility]; no specimens WISDOM TOOTH EXTRACTION Immunization History: Immunization History Administered Date(s) Administered Covid-19, Pfizer Cazares Top, Do Not Dilute, (Age 12 Y+), Im, L 02/26/2022 Influenza, injectable, quadrivalent, preservative free 01/14/2019, 08/12/2021 Pfizer SARS-CoV-2 Vaccination 11/13/2020, 12/04/2020, 08/28/2021 Active Problems: Medical Problems Problem List * (Principal) Upper abdominal pain Hypertension Chest pain Chest pain, unspecified type Endometrial carcinoma (HCC) Endometrial hyperplasia Diabetic hyperosmolar non-ketotic state (CMS/HCC) (HCC) Thickened endometrium Ileus (CMS/HCC) (HCC) Complex endometrial hyperplasia with atypia Diabetic gastroparesis associated with type 2 diabetes mellitus (CMS/HCC) (HCC) Esophagitis Nausea and vomiting Hyperlipidemia Cellulitis and abscess of lower extremity Chronic acquired lymphedema Cellulitis Hyperandrogenism Uncontrolled type 2 diabetes mellitus with complication Chronic osteomyelitis (CMS/HCC) (HCC) 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 (HCC) Class 3 severe obesity due to excess calories with serious comorbidity and body mass index (BMI) of 50.0 to 59.9 in adult (HCC) Type 2 diabetes mellitus with hyperglycemia, with long-term current use of insulin (HCC) Hyperglycemia Post-menopausal bleeding Morbid obesity (HCC) Left leg cellulitis Diabetic foot infection S/P AKA (above knee amputation) unilateral, right ([facility]) Class 3 severe obesity due to excess calories with serious comorbidity and body mass index (BMI) of 60.0 to 69.9 in adult ([facility]) Isolation/Infection: No active isolations No active infections Nurse Assessment: Last Vital Signs: BP 115/70 Pulse 83 Temp (!) 35.9 C (96.7 F) (Temporal) Resp 20 Ht 1.676 m (5' 6") Wt (!) 154 kg (339 lb) SpO2 97% BMI 54.72 kg/m Last documented pain score (0-10 scale): Last Weight: Wt Readings from Last 1 Encounters: 08/17/23 (!) 154 kg (339 lb) Mental Status: CHRISTY Patient Mental Status: oriented, alert, coherent, logical, thought processes intact, and able to concentrate and follow conversation IV Access: CHRISTY IV Access: None Nursing Mobility/ADLs: Walking Total assistance Transfer Total assistance Bathing Total assistance Dressing Total assistance Toileting Total assistance Feeding Independent Structural Iron Erector Independent Med Delivery yes Wound Care Documentation and Therapy: Elimination: Continence: Bowel: no Bladder: no Urinary Catheter: None Colostomy/Ileostomy/Ileal Conduit: None Date of Last BM: 08/17/23 No intake or output data in the 24 hours ending 08/19/23 0720 No intake/output data recorded. Safety Concerns: at risk for falls Impairments/Disabilities: amputation - right AKA Nutrition Therapy: Current Nutrition Therapy: Oral diet: carb control 5 carbs/meal (2000kcals/day) Routes of Feeding: oral Liquids: no restrictions Daily Fluid Restriction: no Last Modified Barium Swallow with Video (Video Swallowing Test): not done Treatments at the Time of Hospital Discharge: Respiratory Treatments: none Oxygen Therapy: is not on home oxygen therapy. Ventilator: No ventilator support Rehab Therapies: physical therapy and occupational therapy Weight Bearing Status/Restrictions: non-weight bearing Other Medical Equipment (for information only, NOT a DME order): deedee lift/ wheel chair Other Treatments: none Patient's personal belongings (please select all that are sent with patient): {[facility] Patient Belongings:[id number]} RN SIGNATURE: MANAGEMENT/SOCIAL WORK SECTION Inpatient Status Date: Readmission Risk Assessment Score: @READMISSIONRISKDETAILS@ Discharging to Facility/ Agency Name: [facility] Address:[address] [place] [id number] Dialysis Facility (if applicable) Name: Address: Dialysis Schedule: Phone: Fax: Education Consultant/Frame Bender signature: ICIAN SECTION Prognosis: fair Condition at Discharge: stable Rehab Potential (if transferring to Rehab): fair Recommended Labs or Other Treatments After Discharge: Physician Certification: I certify the above information and transfer of Will Jacinto is necessary for the continuing treatment of the diagnosis listed and that he requires custodial facility for greater than 30 days. Update Admission H&P: No change in H&P PHYSICIAN SIGNATURE: documented in this encounter [facility] 08-19-2023 Note Formatting of this n ote might be different from the original. Inpatient status from [facility] with abdominal pain. Admitted to [facility]. ID consulted as patient was in ER 10 days ago with diagnosis of pyelonephritis. Started on po diflucan. Endocrinology consulted. BS ac and hs with ss coverage. BS was 29 on 08/17. BS 223 this am. Urine cultures on 08/08 positive for klebsiella(per ID note adequately treated with antimicrobial for last 10 days). Did require apresoline iv x 1 throughout the night.Did task WIRE STITCHER OPERATOR to send referral to [facility]. Discharge plan is to return to [facility] when medically stable... [facility] 08-19-2023 Note Formatting of this n ote might be different from the original. Inpatient status from [facility] with abdominal pain. Admitted to [facility]. ID consulted as patient was in ER 10 days ago with diagnosis of pyelonephritis. Started on po diflucan. Endocrinology consulted. BS ac and hs with ss coverage. BS was 29 on 08/17. BS 223 this am. Urine cultures on 08/08 positive for klebsiella(per ID note adequately treated with antimicrobial for last 10 days). Did require apresoline iv x 1 throughout the night.Did task WIRE STITCHER OPERATOR to send referral to [facility]. Discharge plan is to return to [facility] when medically stable... [facility] 08-18-2023 Plan of care note Problem: Pain Goal: My pain/discomfort is manageable Outcome: Progressing met Ice therapy offer/repositioning Problem: Safety Goal: Patient will be injury free during hospitalization Outcome: Progressing met Educate on using call light/ frequent rounding [facility] 08-18-2023 Emergency department Note Endocrinology melodie, have tried to contact multiple times in regards to Insulin order w/o response. Flor Alonso RN 08/18/23 1214 [facility] 08-18-2023 Emergency department Note Endocrinology melodie, have tried to contact multiple times in regards to Insulin order w/o response. Flor Alonso RN 08/18/23 1214 EMERGENCY DEPARTMENT ENCOUNTER Pt Name: Will Jacinto Birthdate 1965 Date of evaluation: 08/17/2023 ED Provider: Aaron Burgos DO CHIEF COMPLAINT Chief Complaint Patient presents with Abdominal Pain X 1 week HISTORY OF PRESENT ILLNESS (Location/Symptom, Timing/Onset, Context/Setting, Quality, Duration, Modifying Factors, Severity) Note limiting factors. I wore appropriate PPE for the entirety of this encounter. HPI Will Jacinto is a 57 y.o. adult who presents to the emergency department with upper abdominal pain nausea vomiting for the past week. Was seen and evaluated 1 week ago and diagnosed with pyelonephritis. States he is taking the antibiotics as prescribed with persistent symptoms. States feels like when he has had an ileus in the past. No other chest pain shortness of breath fevers or chills. No changes in bowel or bladder habits. Nursing Notes were reviewed. REVIEW OF SYSTEMS 14 systems reviewed and otherwise acutely negative except as in the [place]. 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) Acquired absence of other toe(s), unspecified side (HCC) Anxiety disorder Bipolar 1 disorder ([facility]) Blood circulation, collateral Cellulitis chronic L lower leg COVID 12/08/2021 Depression Diabetes mellitus ([facility]) Type II, on insulin Disease of blood and blood forming organ Endometrial carcinoma ([facility]) 11/25/2020 Endometrial hyperplasia Foot ulcer ([facility]) Hx of blood clots RLE prior to amputation Hyperlipidemia Hypertension Lymphedema 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, RLE Morbidly obese ([facility]) Muscle weakness Osteomyelitis (HCC) Osteomyelitis ([facility]) 2019 RLE Other lack of coordination Other specified soft tissue disorders Other symbolic dysfunctions Schizophrenia ([facility]) Sleep apnea no CPAP Venous insufficiency SURGICAL HISTORY Past Surgical History: Procedure Laterality Date ABCESS DRAINAGE Right 09/09/2018 FOOT; [facility] COLONOSCOPY 09/19/[address] Hyde DILATION AND CURETTAGE OF UTERUS 05/18/2019 HYSTEROSCOPY 12/23/2021 LEG AMPUTATION THROUGH KNEE Right 06/16/2019 UPPER GASTROINTESTINAL ENDOSCOPY N/A 06/29/2023 Dr Sergio Sibley at [facility]; no specimens WISDOM TOOTH EXTRACTION CURRENT MEDICATIONS Previous Medications ARIPIPRAZOLE (ABILIFY) 10 MG TABLET Every 24 hours. ASPIRIN 81 MG EC TABLET Take 1 tablet by mouth daily. ATORVASTATIN (LIPITOR) 10 MG TABLET Take 1 tablet by mouth daily. CEFPODOXIME (VANTIN) 200 MG TABLET Take 1 tablet (200 mg) by mouth 2 times daily for 10 days. DILTIAZEM CD (CARDIZEM CD) 180 MG 24 HR CAPSULE Take 180 mg by mouth daily. DULAGLUTIDE (TRULICITY) 4.5 MG/0.5ML SOLUTION PEN-INJECTOR Inject 4.5 mg under the skin 1 (one) time per week. FLUOXETINE (PROZAC) 40 MG CAPSULE Take 40 mg by mouth daily. GABAPENTIN (NEURONTIN) 100 MG CAPSULE Take 100 mg by mouth in the morning and 100 mg before bedtime. INSULIN REGULAR (HUMULIN R U-500 KWIKPEN) 500 UNIT/ML CONCENTRATED INJECTION Inject under the skin 3 times daily. 285 units before breakfast/260 units before lunch/285 units before dinner LACTOBACILLUS ACID-PECTIN (ACIDOPHILUS/CITRUS PECTIN) TABLET Take 1 tablet by mouth in the morning and 1 tablet in the evening. LISINOPRIL 40 MG TABLET Every 24 hours. LORATADINE 10 MG CAPSULE Take by mouth. MAGNESIUM HYDROXIDE (MILK OF MAGNESIA CONCENTRATE) 2400 MG/10ML SUSPENSION SUSPENSION Every 24 hours. MEGESTROL (MEGACE) 20 MG TABLET Take 1 tablet by mouth in the morning and 1 tablet before bedtime. METOCLOPRAMIDE (REGLAN) 10 MG TABLET Take 1 tablet (10 mg) by mouth in the morning and 1 tablet (10 mg) at noon and 1 tablet (10 mg) in the evening and 1 tablet (10 mg) before bedtime. Do all this for 7 days. METOPROLOL TARTRATE (LOPRESSOR) 25 MG TABLET Take 1 tablet by mouth in the morning and 1 tablet before bedtime. MICONAZOLE (MICOTIN) 2 % POWDER Apply topically 2 times daily. ONDANSETRON (ZOFRAN) 4 MG TABLET Take 8 mg by mouth. PANTOPRAZOLE (PROTONIX) 40 MG EC TABLET Take 40 mg by mouth. POLYETHYLENE GLYCOL, PEG, 3350 (GLYCOLAX) 17 GM/SCOOP POWDER Take 17 g by mouth daily. POTASSIUM CHLORIDE CR (K-TAB) 20 MEQ ER TABLET Every 24 hours. ALLERGIES Patient has no known allergies. FAMILY HISTORY No family history on file. SOCIAL HISTORY Social History Socioeconomic History Marital status: Single Tobacco Use Smoking status: Never Smokeless tobacco: Never Vaping Use Vaping Use: Never used Substance and Sexual Activity Alcohol use: No Drug use: Never Social Determinants of Health Intimate Partner Violence: Not At Risk (06/28/2023) Humiliation, Afraid, Rape, and Kick questionnaire Fear of Current or Ex-Partner: No Emotionally Abused: No Physically Abused: No Sexually Abused: No SCREENINGS PHYSICAL EXAM ED Triage Vitals [08/17/23 1217] Temp Heart Rate Resp BP 36.8 C (98.3 F) 83 15 129/57 SpO2 Temp Source Heart Rate Source Patient Position 99 % Oral Monitor Lying BP Location FiO2 (%) Right arm -- CONSTITUTIONAL: AOx4, no apparent distress, appears stated age HEAD: normocephalic, atraumatic EYES: PERRL, EOMI ENT: moist mucous membranes, uvula midline NECK: supple, symmetric BACK: symmetric LUNGS: clear to auscultation bilaterally CARDIOVASCULAR: regular rate and rhythm, no murmurs, rubs or gallops ABDOMEN: soft, mild upper abdomen tenderness to palpation, non-distended with normal active bowel sounds : deferred NEUROLOGIC: MAEx4, no focal sensory or motor deficits MUSCULOSKELETAL: no clubbing, cyanosis or edema SKIN: no exposed rash DIAGNOSTIC RESULTS Procedures/EKG: EKG was reviewed by myself. Physician EKG interpretation can be found in [facility] RADIOLOGY (Per Emergency Physician): Interpretation per the Radiologist below, if available at the time of this note: CT abdomen pelvis w contrast (Results Pending) ED BEDSIDE ULTRASOUND: Performed by ED Physician - none LABS: Labs Reviewed CBC WITH AUTO DIFFERENTIAL - Abnormal Result Value Auto WBC 14.7 (*) RBC 4.57 Hemoglobin 12.5 Hematocrit 37.7 MCV 82.4 MCH 27.2 MCHC 33.1 RDW 15.3 (*) Platelets 468 (*) MPV 7.5 nRBC 0.0 Neutrophils Relative 65.9 Lymphocytes Relative 24.4 Monocytes Relative 8.5 Eosinophils Relative 0.4 (*) Basophils Relative 0.8 Neutrophils Absolute 9.7 (*) Lymphocytes Absolute 3.6 Monocytes Absolute 1.3 (*) Eosinophils Absolute 0.1 Basophils Absolute 0.1 COMPREHENSIVE METABOLIC PANEL - Abnormal SODIUM 132 (*) POTASSIUM 4.8 CHLORIDE 99 CARBON DIOXIDE 29 ANION GAP 4 UREA NITROGEN 17 CREATININE 0.72 GLUCOSE 71 CALCIUM 8.8 AST (SGOT) 29 ALT 47 ALKALINE PHOSPHATASE 136 (*) ALBUMIN 4.0 BILIRUBIN, TOTAL 0.5 TOTAL PROTEIN 7.1 eGFR >90.0 LIPASE - Normal LIPASE 62 LACTIC ACID WITH REFLEX - Normal LACTIC ACID 1.1 COMPLETE URINALYSIS WITH REFLEX TO CULTURE Narrative: The following orders were created for panel order Urinalysis Complete with reflex to Culture. Procedure Abnormality Status --------- ------ Complete Urinalysis[[id number]] Please view results for these tests on the individual orders. COMPLETE URINALYSIS All other labs were within normal range or not returned as of this dictation. EMERGENCY DEPARTMENT COURSE and DIFFERENTIAL DIAGNOSIS/MDM: Vitals: Vitals: 08/17/23 1217 08/17/23 1223 08/17/23 1522 BP: 129/57 (!) 144/54 BP Location: Right arm Right arm Patient Position: Lying Lying Pulse: 83 62 Resp: 15 18 Temp: 36.8 C (98.3 F) TempSrc: Oral SpO2: 99% 99% 94% Weight: (!) 154 kg (339 lb) Height: 1.676 m (5' 6") EMERGENCY DEPARTMENT COURSE and DIFFERENTIAL DIAGNOSIS/MDM: Vitals: Vitals: 08/17/23 1217 08/17/23 1223 08/17/23 1522 BP: 129/57 (!) 144/54 BP Location: Right arm Right arm Patient Position: Lying Lying Pulse: 83 62 Resp: 15 18 Temp: 36.8 C (98.3 F) TempSrc: Oral SpO2: 99% 99% 94% Weight: (!) 154 kg (339 lb) Height: 1.676 m (5' 6") The patient presented with a chief complaint of upper abdominal pain nausea vomiting. The differential diagnosis associated with this patient's presentation includes ileus, obstruction, infection. Our workup consisted of ordering/reviewing the scan pelvis still pending. Patient does have a leukocytosis. Given Reglan Toradol fluids for his symptoms. Signed out to oncoming physician for final disposition pending CT scan of the abdomen pelvis. ED Course as of 08/17/232248Aug 17, [id number] CT abdomen pelvis w contrast [JAYLENE] ED Course User Index [JAYLENE] Brandon Leblanc DO Diagnoses as of 08/17/232248 Upper abdominal pain Hypoglycemia Diagnostic tests considered but not performed: External records reviewed: Diagnostics interpreted by me: Discussions with other clinicians: Chronic conditions impacting care: Social determinants of health affecting care: ED Medications managed: Medications metoclopramide (Reglan) injection 10 mg (10 mg IntraVENous Given 08/17/23 1342) ketorolac (Toradol) injection 15 mg (15 mg IntraVENous Given 08/17/23 1342) sodium chloride 0.9 % bolus 500 mL (0 mL IntraVENous Stopped 08/17/23 1521) iopamidol (Isovue-370) 76 % injection 75 mL (75 mL IntraVENous Given 08/17/23 1506) CONSULTS: None PROCEDURES: Unless otherwise noted below, none Procedures Patients symptoms are consistent with sepsis, severe sepsis, or septic shock (If yes use ".sepsiscoremeasure"): FINAL IMPRESSION 1. Upper abdominal pain DISPOSITION/PLAN pending PATIENT REFERRED TO: No follow-up provider specified. DISCHARGE MEDICATIONS: New Prescriptions No medications on file (Comment: Please note this report has been produced using speech recognition software and may contain errors related to that system including errors in grammar, punctuation, and spelling, as well as words and phrases that may be inappropriate. If there are any questions or concerns please feel free to contact the dictating provider for clarification.) Aaron Burgos DO (electronically signed) Emergency Medicine Provider Aaron Burgos DO 08/17/23 1528 Pt signed out to me by Dr. Burgos. At the time of signout, CT abdomen/pelvis and urinalysis pending. CT revealed Limited study due to the patient's arms lying aside the torso.. Slight prominence of the left renal pelvis. Question subtle fat stranding adjacent to the mid left ureter. Correlate with urinalysis and clinically for recently passed renal stone. Enlarging right middle lobe pulmonary nodule, measuring approximately 8 mm. Short-term interval follow-up chest CT recommended. Findings within the spine suggestive of DISH versus ankylosing spondylitis. Given stranding around the ureter despite urinalysis with no WBCs or leuks, will give ceftriaxone. Patient intermittently became hypoglycemic. Improved with D50. Patient admitted to medicine further management Brandon Leblanc DO 08/17/23 8182 Arrived via ems from snf, co ABD pain 4/10 x 1 week, previous dx of uti, current tx w/ ATB, prior to arrival pt had zofran 4 mg at 8 am, IV placed by ems, pt able to speak in complete sentences and provide own pmhx, placed on monitor with call light within reach, continue with plan of care Bed: 27 Expected date: Expected time: Means of arrival: Comments: PHYSICIANS Lisa Curtis RN 08/17/23 1215 Bed: 08 Expected date: Expected time: Means of arrival: Comments: Main 2 Dalila Mendes RN 08/17/232045 documented in this encounter [facility] 08-18-2023 Consult note Associated Order (s): IP CONSULT TO ENDOCRINOLOGY Department of Internal Medicine Division of Endocrinology, Diabetes, & Metabolism Endocrinology Note Patient Name: Will Jacinto : 1965 AGE: 57 y.o. Room/Bed: 06/15 Admission Date: 08/17/2023 Visit Date: 08/18/2023 Reason for Endocrine Consult: DM2 Uncontrolled Provider/Team Requesting Consult: Dr. 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 PLAN: Insulin U-500 100 units 3 times daily with meals Humalog medium dose sliding scale 3 times daily with meals Resume Trulicity when returns to SNF ICU goal <180 GMF goal <150 POCT BG ACHS Hypoglycemia per protocol Carb controlled diet ANTICIPATED ENDOCRINE HOME GOING RECOMMENDATIONS: Optimized for Discharge from Endocrine standpoint: No Home Going Endocrine Rx Recommendations-- Trulicity 4.5 mg weekly on Insulin U-500 dose to be determined 3 times daily with meals Outpt Follow Up-- [facility] endocrinology SUBJECTIVE/HPI: CHIEF COMPLAINT: Chief Complaint Patient presents with Abdominal Pain X 1 week Will Jacinto is a 57 y.o. adult who presents to the emergency department with upper abdominal pain nausea vomiting for the past week. Was seen and evaluated 1 week ago and diagnosed with pyelonephritis. States he is taking the antibiotics as prescribed with persistent symptoms. States feels like when he has had an ileus in the past. Pmhx: Aka Bipolar disorder Cellulitis Covid Depression Dm2 severe insulin resistance Endometrial cancer Hlp Htn Schizophrenia Osteomylelits John BGL: 71, 29, 154, 340, Patient given IV dextrose for hypoglycemic event 08/17/2023 Current orders while hospitalized: Trulicity 4.5 mg weekly Insulin regular U-500 280 units 3 times daily Humalog 15 units one-time dose given 08/18/2023 Patient alert and oriented sitting up in bed. Tolerating meals - -Breakfast: Western scrambler, breakfast sandwich, yogurt -Lunch roast beef, carrots, rice Reports nausea but no vomiting today Type of DM: 2 Onset of DM: 1991 Home DM Medication Regimen: u500 285 units meals DM control (last A1c/glucose data): Lab Results Component Value Date HGBA1C 10.1 (H) 02/09/2023 Glucose Date/Time Value Ref Range Status 08/17/2023 07:33 PM 154 (H) 70 - 100 mg/dL Final 08/17/2023 06:10 PM 154 (H) 70 - 100 mg/dL Final 08/17/2023 05:47 PM <50 (L) 70 - 100 mg/dL Final Comment: Caregiver Notified; Confirmation Drawn; 08/08/2023 06:44 AM 251 (H) 70 - 100 mg/dL Final 07/01/2023 11:26 AM 391 (H) 70 - 100 mg/dL Final 07/01/2023 06:58 AM 242 (H) 70 - 100 mg/dL Final Glucose Blood, POC Date/Time Value Ref Range Status 08/17/2023 06:14 PM 154 mg/dL Final Review of Systems Constitutional: Positive for appetite change. Gastrointestinal: Positive for abdominal pain and nausea. Negative for vomiting. ROS negative except for those mentioned in HPI. OBJECTIVE: Vitals: 08/17/23 1223 08/17/23 1522 08/17/23 1815 08/17/23 1934 BP: (!) 144/54 (!) 149/66 (!) 148/83 BP Location: Right arm Right arm Right arm Patient Position: Lying Lying Lying Pulse: 62 52 62 Resp: 18 15 14 Temp: TempSrc: SpO2: 99% 94% 96% 100% Weight: Height: Physical Exam Vitals and nursing note reviewed. Constitutional: Appearance: He is obese. He is ill-appearing. HENT: Head: Normocephalic. Cardiovascular: Rate and Rhythm: Normal rate and regular rhythm. Pulses: Normal pulses. Dorsalis pedis pulses are 2+ on the left side. Posterior tibial pulses are 2+ on the left side. Heart sounds: Normal heart sounds. No murmur heard. Pulmonary: Effort: Pulmonary effort is normal. No respiratory distress. Breath sounds: Normal breath sounds. Musculoskeletal: General: Swelling present. Right Lower Extremity: Right leg is amputated above knee. Neurological: Mental Status: He is alert. 24 hour intake/output: Intake/Output Summary (Last 24 hours) at 08/18/2023 1152 Last data filed at 08/17/2023 1521 Gross per 24 hour Intake 500 ml Output -- Net 500 ml Diet: Adult diet Regular; 5 carb choices (75 gm/meal) Medications (as per EMR): HomeMeds: Current Outpatient Medications Medication Instructions ARIPiprazole (Abilify) 10 MG tablet Every 24 hours aspirin 81 MG EC tablet 1 tablet, Oral, Daily atorvastatin (Lipitor) 10 MG tablet 1 tablet, Oral, Daily cefpodoxime (VANTIN) 200 mg, Oral, 2 times daily dilTIAZem CD (CARDIZEM CD) 180 mg, Oral, Daily dulaglutide (TRULICITY) 4.5 mg, SubCUTAneous, Weekly FLUoxetine (PROZAC) 40 mg, Oral, Daily gabapentin (NEURONTIN) 100 mg, Oral, 2 times daily insulin regular (HumuLIN R U-500 KWIKPEN) 500 UNIT/ML CONCENTRATED injection SubCUTAneous, 3 times daily, 285 units before breakfast/260 units before lunch/285 units before dinner Lactobacillus Acid-Pectin (Acidophilus/Rosemead Pectin) tablet 1 tablet, Oral, 2 times daily lisinopril 40 MG tablet Every 24 hours Loratadine 10 MG capsule Oral magnesium hydroxide (Milk of Magnesia Concentrate) 2400 MG/10ML suspension suspension Every 24 hours megestrol (Megace) 20 MG tablet 1 tablet, Oral, 2 times daily metoclopramide (REGLAN) 10 mg, Oral, 4 times daily metoprolol tartrate (Lopressor) 25 MG tablet 1 tablet, Oral, 2 times daily miconazole (Micotin) 2 % powder Topical, 2 times daily ondansetron (ZOFRAN) 8 mg, Oral pantoprazole (PROTONIX) 40 mg, Oral polyethylene glycol (PEG) 3350 (GLYCOLAX) 17 g, Oral, Daily potassium chloride CR (K-Tab) 20 MEQ ER tablet Every 24 hours Scheduled Meds:acidophilus lactobacillus, 1 capsule, Oral, BID ARIPiprazole, 10 mg, Oral, Daily aspirin, 81 mg, Oral, Daily atorvastatin, 10 mg, Oral, Daily clotrimazole, , Topical, BID dilTIAZem CD, 180 mg, Oral, Daily dulaglutide, 4.5 mg, SubCUTAneous, Weekly enoxaparin, 30 mg, SubCUTAneous, 2 times per day fluconazole, 200 mg, Oral, Daily FLUoxetine, 40 mg, Oral, Daily gabapentin, 100 mg, Oral, BID influenza, 0.5 mL, IntraMUSCular, Prior to discharge insulin regular, 280 Units, SubCUTAneous, TID lisinopril, 40 mg, Oral, Daily megestrol, 20 mg, Oral, BID metoclopramide, 10 mg, Oral, 4x daily metoprolol tartrate, 25 mg, Oral, BID pantoprazole, 40 mg, Oral, qAM AC polyethylene glycol (PEG) 3350, 17 g, Oral, Daily potassium chloride CR, 20 mEq, Oral, q24h Continuous Infusions: PRN Meds:PRN medications: acetaminophen OR acetaminophen, dextrose, dextrose, glucagon (rDNA), glucose, ondansetron ODT OR ondansetron, polyethylene glycol (PEG) 3350 Diagnostic Workup: I reviewed pertinent Laboratory results, Radiographic results, and Other Clinical Notes at the time of today's encounter. Labs: No components found for: LABA1C No components found for: "EAG" Lab Results Component Value Date NA 130 (L) 08/18/2023 K 4.2 08/18/2023 CL 100 08/18/2023 CO2 24 08/18/2023 BUN 24 08/18/2023 CREATININE 0.76 08/18/2023 GLUCOSE 311 (H) 08/18/2023 CALCIUM 8.0 (L) 08/18/2023 Lab Results Component Value Date CHLPL 125 08/29/2020 Lab Results Component Value Date TRIG 190 08/29/2020 Lab Results Component Value Date HDL 31 (A) 08/29/2020 Lab Results Component Value Date LDLCALC 56 08/29/2020 Lab Results Component Value Date VLDL 38 08/29/2020 No results found for: CHOLHDLRATIO No results found for: [id number] Lab Results Component Value Date TSH 2.356 11/26/2020 Radiology reportsas per the Radiologist Radiology: ECG 12 lead Result Date: 08/17/2023 Sinus bradycardia Left bundle branch block Prolonged QT interval Compared to ECG 08/08/2023 06:58:13 Left bundle-branch block now present Sinus tachycardia no longer present Left anterior fascicular block no longer present Left ventricular hypertrophy no longer present CT abdomen pelvis w contrast Result Date: 08/17/2023 Patient Name: WILL JACINTO : 1965 Exam Date/Time: 08/17/2023 15:08 Procedure: CT ABDOMEN PELVIS W CONTRAST Ordering Provider: BURGOS TYLER Reason For Exam: upper abd pain, nausea, vomit, eval for infection, obstruction EXAMINATION: CT abdomen/pelvis Indication: upper abd pain, nausea, vomit, eval for infection, obstruction TECHNIQUE: Axial CT images of the abdomen/pelvis were obtained without oral and with IV contrast (75 cc Isovue 370) at 3 mm intervals. Images were acquired from the lung bases through the symphysis pubis. Dose reduction was employed with automatic exposure control. Coronal and sagittal reconstructions were also provided for review. FINDINGS: The patient's arm is located along side the torso, which causes some artifact and limits assessment Question subtle fat stranding adjacent to the mid left ureter on axial image 116. Slight prominence of the left renal collecting system is present. The solid organs in the upper abdomen are grossly unremarkable. The pelvic contents are grossly unremarkable. The aorta is of normal caliber. No abdominal/pelvic adenopathy present. The large and small bowel are grossly unremarkable. The stomach is grossly unremarkable. Fairly extensive degenerative changes of the spine are present with bridging osteophytes or syndesmophytes throughout the lower thoracic and lumbar spine. Fairly extensive degenerative facet changes are present which does contribute to central canal stenosis within the lumbar spine. 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 Mild scarring or atelectasis of the lung bases is noted. Right middle lobe pulmonary nodule measures approximately 8 mm, somewhat similar to 08/08/2023 and increased in size since November 2020. Limited study due to the patient's arms lying aside the torso.. Slight prominence of the left renal pelvis. Question subtle fat stranding adjacent to the mid left ureter. Correlate with urinalysis and clinically for recently passed renal stone. Enlarging right middle lobe pulmonary nodule, measuring approximately 8 mm. Short-term interval follow-up chest CT recommended. Findings within the spine suggestive of DISH versus ankylosing spondylitis. 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 other toe(s), unspecified side (HCC) Anxiety disorder Bipolar 1 disorder ([facility]) Blood circulation, collateral Cellulitis chronic L lower leg COVID 12/08/2021 Depression Diabetes mellitus ([facility]) Type II, on insulin Disease of blood and blood forming organ Endometrial carcinoma ([facility]) 11/25/2020 Endometrial hyperplasia Foot ulcer ([facility]) Hx of blood clots RLE prior to amputation Hyperlipidemia Hypertension Lymphedema 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, RLE Morbidly obese ([facility]) Muscle weakness Osteomyelitis ([facility]) Osteomyelitis ([facility]) 2019 RLE Other lack of coordination Other specified soft tissue disorders Other symbolic dysfunctions Schizophrenia ([facility]) Sleep apnea no CPAP Venous insufficiency Past Surgical History: Past Surgical History: Procedure Laterality Date ABCESS DRAINAGE Right 09/09/2018 FOOT; ACH COLONOSCOPY 09/19/[address] Hyde DILATION AND CURETTAGE OF UTERUS 05/18/2019 HYSTEROSCOPY 12/23/2021 LEG AMPUTATION THROUGH KNEE Right 06/16/2019 UPPER GASTROINTESTINAL ENDOSCOPY N/A 06/29/2023 Dr Sergio Sibley at [facility]; no specimens WISDOM TOOTH EXTRACTION Allergy(ies): No Known Allergies Family History: No family history on file. Social History: Social History Tobacco Use Smoking status: Never Smokeless tobacco: Never Vaping Use Vaping Use: Never used Substance Use Topics Alcohol use: No Drug use: Never Portions of the information within this encounter were entered using an electronic dictation system. Best attempts were made to edit/proofread the information prior to note completion. Despite the review of information, some errors may remain. If there are questions related to the information contained within the note please contact the signing physician directly. I spent 75 minutes with the pt which involved coordination of care, medical evaluation, review of records, and/or counseling of the pt regarding his/her condition/disease state/prognosis on the date of this note. [facility] 08-18-2023 Consult note Associated Order (s): IP CONSULT TO ENDOCRINOLOGY Department of Internal Medicine Division of Endocrinology, Diabetes, & Metabolism Endocrinology Note Patient Name: Will Jacinto : 1965 AGE: 57 y.o. Room/Bed: 06/15 Admission Date: 08/17/2023 Visit Date: 08/18/2023 Reason for Endocrine Consult: DM2 Uncontrolled Provider/Team Requesting Consult: Dr. 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 PLAN: Insulin U-500 100 units 3 times daily with meals Humalog medium dose sliding scale 3 times daily with meals Resume Trulicity when returns to SNF ICU goal <180 GMF goal <150 POCT BG ACHS Hypoglycemia per protocol Carb controlled diet ANTICIPATED ENDOCRINE HOME GOING RECOMMENDATIONS: Optimized for Discharge from Endocrine standpoint: No Home Going Endocrine Rx Recommendations-- Trulicity 4.5 mg weekly on Insulin U-500 dose to be determined 3 times daily with meals Outpt Follow Up-- [facility] group endocrinology SUBJECTIVE/HPI: CHIEF COMPLAINT: Chief Complaint Patient presents with Abdominal Pain X 1 week Will Jacinto is a 57 y.o. adult who presents to the emergency department with upper abdominal pain nausea vomiting for the past week. Was seen and evaluated 1 week ago and diagnosed with pyelonephritis. States he is taking the antibiotics as prescribed with persistent symptoms. States feels like when he has had an ileus in the past. Pmhx: Aka Bipolar disorder Cellulitis Covid Depression Dm2 severe insulin resistance Endometrial cancer Hlp Htn Schizophrenia Osteomylelits John BGL: 71, 29, 154, 340, Patient given IV dextrose for hypoglycemic event 08/17/2023 Current orders while hospitalized: Trulicity 4.5 mg weekly Insulin regular U-500 280 units 3 times daily Humalog 15 units one-time dose given 08/18/2023 Patient alert and oriented sitting up in bed. Tolerating meals - -Breakfast: Western scrambler, breakfast sandwich, yogurt -Lunch roast beef, carrots, rice Reports nausea but no vomiting today Type of DM: 2 Onset of DM: 1991 Home DM Medication Regimen: u500 285 units meals DM control (last A1c/glucose data): Lab Results Component Value Date HGBA1C 10.1 (H) 02/09/2023 Glucose Date/Time Value Ref Range Status 08/17/2023 07:33 PM 154 (H) 70 - 100 mg/dL Final 08/17/2023 06:10 PM 154 (H) 70 - 100 mg/dL Final 08/17/2023 05:47 PM <50 (L) 70 - 100 mg/dL Final Comment: Caregiver Notified; Confirmation Drawn; 08/08/2023 06:44 AM 251 (H) 70 - 100 mg/dL Final 07/01/2023 11:26 AM 391 (H) 70 - 100 mg/dL Final 07/01/2023 06:58 AM 242 (H) 70 - 100 mg/dL Final Glucose Blood, POC Date/Time Value Ref Range Status 08/17/2023 06:14 PM 154 mg/dL Final Review of Systems Constitutional: Positive for appetite change. Gastrointestinal: Positive for abdominal pain and nausea. Negative for vomiting. ROS negative except for those mentioned in HPI. OBJECTIVE: Vitals: 08/17/23 1223 08/17/23 1522 08/17/23 1815 08/17/23 1934 BP: (!) 144/54 (!) 149/66 (!) 148/83 BP Location: Right arm Right arm Right arm Patient Position: Lying Lying Lying Pulse: 62 52 62 Resp: 18 15 14 Temp: TempSrc: SpO2: 99% 94% 96% 100% Weight: Height: Physical Exam Vitals and nursing note reviewed. Constitutional: Appearance: He is obese. He is ill-appearing. HENT: Head: Normocephalic. Cardiovascular: Rate and Rhythm: Normal rate and regular rhythm. Pulses: Normal pulses. Dorsalis pedis pulses are 2+ on the left side. Posterior tibial pulses are 2+ on the left side. Heart sounds: Normal heart sounds. No murmur heard. Pulmonary: Effort: Pulmonary effort is normal. No respiratory distress. Breath sounds: Normal breath sounds. Musculoskeletal: General: Swelling present. Right Lower Extremity: Right leg is amputated above knee. Neurological: Mental Status: He is alert. 24 hour intake/output: Intake/Output Summary (Last 24 hours) at 08/18/2023 1152 Last data filed at 08/17/2023 1521 Gross per 24 hour Intake 500 ml Output -- Net 500 ml Diet: Adult diet Regular; 5 carb choices (75 gm/meal) Medications (as per EMR): HomeMeds: Current Outpatient Medications Medication Instructions ARIPiprazole (Abilify) 10 MG tablet Every 24 hours aspirin 81 MG EC tablet 1 tablet, Oral, Daily atorvastatin (Lipitor) 10 MG tablet 1 tablet, Oral, Daily cefpodoxime (VANTIN) 200 mg, Oral, 2 times daily dilTIAZem CD (CARDIZEM CD) 180 mg, Oral, Daily dulaglutide (TRULICITY) 4.5 mg, SubCUTAneous, Weekly FLUoxetine (PROZAC) 40 mg, Oral, Daily gabapentin (NEURONTIN) 100 mg, Oral, 2 times daily insulin regular (HumuLIN R U-500 KWIKPEN) 500 UNIT/ML CONCENTRATED injection SubCUTAneous, 3 times daily, 285 units before breakfast/260 units before lunch/285 units before dinner Lactobacillus Acid-Pectin (Acidophilus/Rosemead Pectin) tablet 1 tablet, Oral, 2 times daily lisinopril 40 MG tablet Every 24 hours Loratadine 10 MG capsule Oral magnesium hydroxide (Milk of Magnesia Concentrate) 2400 MG/10ML suspension suspension Every 24 hours megestrol (Megace) 20 MG tablet 1 tablet, Oral, 2 times daily metoclopramide (REGLAN) 10 mg, Oral, 4 times daily metoprolol tartrate (Lopressor) 25 MG tablet 1 tablet, Oral, 2 times daily miconazole (Micotin) 2 % powder Topical, 2 times daily ondansetron (ZOFRAN) 8 mg, Oral pantoprazole (PROTONIX) 40 mg, Oral polyethylene glycol (PEG) 3350 (GLYCOLAX) 17 g, Oral, Daily potassium chloride CR (K-Tab) 20 MEQ ER tablet Every 24 hours Scheduled Meds:acidophilus lactobacillus, 1 capsule, Oral, BID ARIPiprazole, 10 mg, Oral, Daily aspirin, 81 mg, Oral, Daily atorvastatin, 10 mg, Oral, Daily clotrimazole, , Topical, BID dilTIAZem CD, 180 mg, Oral, Daily dulaglutide, 4.5 mg, SubCUTAneous, Weekly enoxaparin, 30 mg, SubCUTAneous, 2 times per day fluconazole, 200 mg, Oral, Daily FLUoxetine, 40 mg, Oral, Daily gabapentin, 100 mg, Oral, BID influenza, 0.5 mL, IntraMUSCular, Prior to discharge insulin regular, 280 Units, SubCUTAneous, TID lisinopril, 40 mg, Oral, Daily megestrol, 20 mg, Oral, BID metoclopramide, 10 mg, Oral, 4x daily metoprolol tartrate, 25 mg, Oral, BID pantoprazole, 40 mg, Oral, qAM AC polyethylene glycol (PEG) 3350, 17 g, Oral, Daily potassium chloride CR, 20 mEq, Oral, q24h Continuous Infusions: PRN Meds:PRN medications: acetaminophen OR acetaminophen, dextrose, dextrose, glucagon (rDNA), glucose, ondansetron ODT OR ondansetron, polyethylene glycol (PEG) 3350 Diagnostic Workup: I reviewed pertinent Laboratory results, Radiographic results, and Other Clinical Notes at the time of today's encounter. Labs: No components found for: LABA1C No components found for: "EAG" Lab Results Component Value Date NA 130 (L) 08/18/2023 K 4.2 08/18/2023 CL 100 08/18/2023 CO2 24 08/18/2023 BUN 24 08/18/2023 CREATININE 0.76 08/18/2023 GLUCOSE 311 (H) 08/18/2023 CALCIUM 8.0 (L) 08/18/2023 Lab Results Component Value Date CHLPL 125 08/29/2020 Lab Results Component Value Date TRIG 190 08/29/2020 Lab Results Component Value Date HDL 31 (A) 08/29/2020 Lab Results Component Value Date LDLCALC 56 08/29/2020 Lab Results Component Value Date VLDL 38 08/29/2020 No results found for: CHOLHDLRATIO No results found for: [id number] Lab Results Component Value Date TSH 2.356 11/26/2020 Radiology reportsas per the Radiologist Radiology: ECG 12 lead Result Date: 08/17/2023 Sinus bradycardia Left bundle branch block Prolonged QT interval Compared to ECG 08/08/2023 06:58:13 Left bundle-branch block now present Sinus tachycardia no longer present Left anterior fascicular block no longer present Left ventricular hypertrophy no longer present CT abdomen pelvis w contrast Result Date: 08/17/2023 [facility] 1965 [id number] Exam Date/Time: 08/17/2023 15:08 Procedure: CT ABDOMEN PELVIS W CONTRAST Ordering Provider: BURGOS TYLER Reason For Exam: upper abd pain, nausea, vomit, eval for infection, obstruction EXAMINATION: CT abdomen/pelvis Indication: upper abd pain, nausea, vomit, eval for infection, obstruction TECHNIQUE: Axial CT images of the abdomen/pelvis were obtained without oral and with IV contrast (75 cc Isovue 370) at 3 mm intervals. Images were acquired from the lung bases through the symphysis pubis. Dose reduction was employed with automatic exposure control. Coronal and sagittal reconstructions were also provided for review. FINDINGS: The patient's arm is located along side the torso, which causes some artifact and limits assessment Question subtle fat stranding adjacent to the mid left ureter on axial image 116. Slight prominence of the left renal collecting system is present. The solid organs in the upper abdomen are grossly unremarkable. The pelvic contents are grossly unremarkable. The aorta is of normal caliber. No abdominal/pelvic adenopathy present. The large and small bowel are grossly unremarkable. The stomach is grossly unremarkable. Fairly extensive degenerative changes of the spine are present with bridging osteophytes or syndesmophytes throughout the lower thoracic and lumbar spine. Fairly extensive degenerative facet changes are present which does contribute to central canal stenosis within the lumbar spine. 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 Mild scarring or atelectasis of the lung bases is noted. Right middle lobe pulmonary nodule measures approximately 8 mm, somewhat similar to 08/08/2023 and increased in size since November 2020. Limited study due to the patient's arms lying aside the torso.. Slight prominence of the left renal pelvis. Question subtle fat stranding adjacent to the mid left ureter. Correlate with urinalysis and clinically for recently passed renal stone. Enlarging right middle lobe pulmonary nodule, measuring approximately 8 mm. Short-term interval follow-up chest CT recommended. Findings within the spine suggestive of DISH versus ankylosing spondylitis. 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 other toe(s), unspecified side ([facility]) Anxiety disorder Bipolar 1 disorder ([facility]) Blood circulation, collateral Cellulitis chronic L lower leg COVID 12/08/2021 Depression Diabetes mellitus ([facility]) Type II, on insulin Disease of blood and blood forming organ Endometrial carcinoma ([facility]) 11/25/2020 Endometrial hyperplasia Foot ulcer ([facility]) Hx of blood clots RLE prior to amputation Hyperlipidemia Hypertension Lymphedema 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, RLE Morbidly obese ([facility]) Muscle weakness Osteomyelitis ([facility]) Osteomyelitis ([facility]) 2019 RLE Other lack of coordination Other specified soft tissue disorders Other symbolic dysfunctions Schizophrenia ([facility]) Sleep apnea no CPAP Venous insufficiency Past Surgical History: Past Surgical History: Procedure Laterality Date ABCESS DRAINAGE Right 09/09/2018 FOOT; ACH COLONOSCOPY 09/19/[address] Hyde DILATION AND CURETTAGE OF UTERUS 05/18/2019 HYSTEROSCOPY 12/23/2021 LEG AMPUTATION THROUGH KNEE Right 06/16/2019 UPPER GASTROINTESTINAL ENDOSCOPY N/A 06/29/2023 Dr Sergio Sibley at [facility]; no specimens WISDOM TOOTH EXTRACTION Allergy(ies): No Known Allergies Family History: No family history on file. Social History: Social History Tobacco Use Smoking status: Never Smokeless tobacco: Never Vaping Use Vaping Use: Never used Substance Use Topics Alcohol use: No Drug use: Never Portions of the information within this encounter were entered using an electronic dictation system. Best attempts were made to edit/proofread the information prior to note completion. Despite the review of information, some errors may remain. If there are questions related to the information contained within the note please contact the signing physician directly. I spent 75 minutes with the pt which involved coordination of care, medical evaluation, review of records, and/or counseling of the pt regarding his/her condition/disease state/prognosis on the date of this note. Associated Order(s): IP CONSULT TO INFECTIOUS DISEASES Images from the original note were not included. [facility] - Infectious Diseases Attending Consult Note Reason for Consult: Complicated UTI History of Present Illness: Patient is 57 year old admitted to [facility] with abdominal discomfort N/V. Patient was in ED about 10 days ago with similar complaints and was diagnosed with pyelonephritis. Ws sent with 10 days of cefpodoxime. States symptoms are about the same. Complains mostly of abdominal discomfort and sense of urinary urgency. No significant fever or chills. Patient is legally female with male identity. No burning with urination. No CP/SOB. No new exacerbating or alleviating factors. Also states he has chronic RLE cellulitis. Has not had any changes. 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 other toe(s), unspecified side (HCC) Anxiety disorder Bipolar 1 disorder ([facility]) Blood circulation, collateral Cellulitis chronic L lower leg COVID 12/08/2021 Depression Diabetes mellitus ([facility]) Type II, on insulin Disease of blood and blood forming organ Endometrial carcinoma (HCC) 11/25/2020 Endometrial hyperplasia Foot ulcer ([facility]) Hx of blood clots RLE prior to amputation Hyperlipidemia Hypertension Lymphedema 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, RLE Morbidly obese ([facility]) Muscle weakness Osteomyelitis (HCC) Osteomyelitis (HCC) 2019 RLE Other lack of coordination Other specified soft tissue disorders Other symbolic dysfunctions Schizophrenia (HCC) Sleep apnea no CPAP Venous insufficiency Past Surgical History: Past Surgical History: Procedure Laterality Date ABCESS DRAINAGE Right 09/09/2018 FOOT; ACH COLONOSCOPY 09/19/[address] Hyde DILATION AND CURETTAGE OF UTERUS 05/18/2019 HYSTEROSCOPY 12/23/2021 LEG AMPUTATION THROUGH KNEE Right 06/16/2019 UPPER GASTROINTESTINAL ENDOSCOPY N/A 06/29/2023 Dr Sergio Sibley at [facility]; no specimens WISDOM TOOTH EXTRACTION Current Medications: Current Facility-Administered Medications Medication Dose Route Frequency Provider Last Rate Last Admin acetaminophen (Tylenol) tablet 650 mg 650 mg Oral q6h PRN Nabil M Esterle, DO Or acetaminophen (Tylenol) suppository 650 mg 650 mg Rectal q6h PRN Nabil M Esterle, DO acidophilus lactobacillus 1 capsule 1 capsule Oral BID Nabil M Esterle, DO 1 capsule at 08/18/23 0617 ARIPiprazole (Abilify) tablet 10 mg 10 mg Oral Daily Nabil M Esterle, DO 10 mg at 08/18/23 0828 aspirin EC tablet 81 mg 81 mg Oral Daily Nabil M Esterle, DO 81 mg at 08/18/23 0828 atorvastatin (Lipitor) tablet 10 mg 10 mg Oral Daily Nabil M Esterle, DO 10 mg at 08/18/23 0828 cefTRIAXone (Rocephin) 1,000 mg in sodium chloride 0.9 % 50 mL IVPB Mini-Bag Plus 1,000 mg IntraVENous q24h Nabil M Esterle, DO dextrose 5 % infusion 100 mL/hr IntraVENous PRN Brandon [place], DO dextrose 50 % solution 12.5 g 12.5 g IntraVENous PRN [place], DO 12.5 g at 08/17/23 180 dilTIAZem CD (Cardizem CD) 24 hr capsule 180 mg 180 mg Oral Daily Nabil M Esterle, DO 180 mg at 08/18/23827 dulaglutide (Trulicity) injection 4.5 mg 4.5 mg SubCUTAneous Weekly Nabil M Esterle, DO enoxaparin (Lovenox) syringe 30 mg 30 mg SubCUTAneous 2 times per day Nabil M Esterle, DO 30 mg at 08/17/232328 FLUoxetine (PROzac) capsule 40 mg 40 mg Oral Daily Nabil M Esterle, DO 40 mg at 08/18/23 0828 gabapentin (Neurontin) capsule 100 mg 100 mg Oral BID Nabil M Esterle, DO 100 mg at 08/18/23 0828 glucagon (human recombinant) injection 1 mg 1 mg IntraMUSCular PRN [place], DO glucose oral gel 15 g 15 g Oral PRN Brandon Deana, DO influenza vac subunit quadrivalent (Flucelvax) injection 0.5 mL 0.5 mL IntraMUSCular Prior to discharge Nabil M Esterle, DO insulin regular (HumuLIN R U-500) CONCENTRATED injection 280 Units 280 Units SubCUTAneous TID Nabil M Esterle, DO lisinopril tablet 40 mg 40 mg Oral Daily Nabil M Esterle, DO 40 mg at 08/18/23 0828 megestrol (Megace) tablet 20 mg 20 mg Oral BID Nabil M Esterle, DO 20 mg at 08/18/23 0841 metoclopramide (Reglan) tablet 10 mg 10 mg Oral 4x daily Nabil M Esterle, DO 10 mg at 08/18/23 0828 metoprolol tartrate (Lopressor) tablet 25 mg 25 mg Oral BID Nabil M Esterle, DO 25 mg at 08/18/23 0828 ondansetron ODT (Zofran-ODT) disintegrating tablet 4 mg 4 mg Oral q8h PRN Nabil M Esterle, DO Or ondansetron (Zofran) injection 4 mg 4 mg IntraVENous q6h PRN Nabil M Esterle, DO pantoprazole (ProtoNix) EC tablet 40 mg 40 mg Oral qAM AC Nabil M Esterle, DO 40 mg at 08/18/23 0620 polyethylene glycol (PEG) 3350 (Miralax) packet 17 g 17 g Oral Daily Nabil M Esterle, DO 17 g at 08/18/23 0900 polyethylene glycol (PEG) 3350 (Miralax) packet 17 g 17 g Oral Daily PRN Nabil M Esterle, DO potassium chloride CR (Klor-Con M20) ER tablet 20 mEq 20 mEq Oral q24h Nabil M Esterle, DO 20 mEq at 08/17/23 2330 Current Outpatient Medications Medication Sig Dispense Refill ARIPiprazole (Abilify) 10 MG tablet Every 24 hours. aspirin 81 MG EC tablet Take 1 tablet by mouth daily. atorvastatin (Lipitor) 10 MG tablet Take 1 tablet by mouth daily. cefpodoxime (Vantin) 200 MG tablet Take 1 tablet (200 mg) by mouth 2 times daily for 10 days. 20 tablet 0 dilTIAZem CD (Cardizem CD) 180 MG 24 hr capsule Take 180 mg by mouth daily. dulaglutide (Trulicity) 4.5 MG/0.5ML solution pen-injector Inject 4.5 mg under the skin 1 (one) time per week. FLUoxetine (PROzac) 40 MG capsule Take 40 mg by mouth daily. gabapentin (Neurontin) 100 MG capsule Take 100 mg by mouth in the morning and 100 mg before bedtime. insulin regular (HumuLIN R U-500 KWIKPEN) 500 UNIT/ML CONCENTRATED injection Inject under the skin 3 times daily. 285 units before breakfast/260 units before lunch/285 units before dinner Lactobacillus Acid-Pectin (Acidophilus/Rosemead Pectin) tablet Take 1 tablet by mouth in the morning and 1 tablet in the evening. lisinopril 40 MG tablet Every 24 hours. Loratadine 10 MG capsule Take by mouth. magnesium hydroxide (Milk of Magnesia Concentrate) 2400 MG/10ML suspension suspension Every 24 hours. megestrol (Megace) 20 MG tablet Take 1 tablet by mouth in the morning and 1 tablet before bedtime. metoclopramide (Reglan) 10 MG tablet Take 1 tablet (10 mg) by mouth in the morning and 1 tablet (10 mg) at noon and 1 tablet (10 mg) in the evening and 1 tablet (10 mg) before bedtime. Do all this for 7 days. 28 tablet 0 metoprolol tartrate (Lopressor) 25 MG tablet Take 1 tablet by mouth in the morning and 1 tablet before bedtime. miconazole (Micotin) 2 % powder Apply topically 2 times daily. ondansetron (Zofran) 4 MG tablet Take 8 mg by mouth. pantoprazole (ProtoNix) 40 MG EC tablet Take 40 mg by mouth. polyethylene glycol, PEG, 3350 (Glycolax) 17 GM/SCOOP powder Take 17 g by mouth daily. potassium chloride CR (K-Tab) 20 MEQ ER tablet Every 24 hours. Allergies: No Known Allergies Social History: Social History Socioeconomic History Marital status: Single Spouse name: Not on file Number of children: Not on file Years of education: Not on file Highest education level: Not on file Occupational History Not on file Tobacco Use Smoking status: Never Smokeless tobacco: Never Vaping Use Vaping Use: Never used Substance and Sexual Activity Alcohol use: No Drug use: Never Sexual activity: Not on file Other Topics Concern Not on file Social History Narrative Not on file Social Determinants of Health Financial Resource Strain: Not on file Food Insecurity: Not on file Transportation Needs: Not on file Physical Activity: Not on file Stress: Not on file Social Connections: Not on file Intimate Partner Violence: Not At Risk (06/28/2023) Humiliation, Afraid, Rape, and Kick questionnaire Fear of Current or Ex-Partner: No Emotionally Abused: No Physically Abused: No Sexually Abused: No Housing Stability: Not on file Family History: No family history on file. Review of Systems: Review of Systems Constitutional: Negative for appetite change, chills, fever and unexpected weight change. HENT: Negative for ear pain, hearing loss and tinnitus. Respiratory: Negative for shortness of breath. Cardiovascular: Negative for chest pain. Gastrointestinal: Positive for nausea and vomiting. Negative for diarrhea. Endocrine: Negative. Genitourinary: Positive for urgency. Negative for dysuria, flank pain and hematuria. Musculoskeletal: Negative. Skin: Negative for rash. Neurological: Negative. Negative for dizziness and light-headedness. Hematological: Negative. Psychiatric/Behavioral: Negative. All other systems reviewed and are negative. Vitals: Patient Vitals for the past 24 hrs: BP Temp Temp src Pulse Resp SpO2 Height Weight 08/17/23 1934 (!) 148/83 -- -- 62 14 100 % -- -- 08/17/23 1815 (!) 149/66 -- -- 52 15 96 % -- -- 08/17/23 1522 (!) 144/54 -- -- 62 18 94 % -- -- 08/17/23 1223 -- -- -- -- -- 99 % -- -- 08/17/23 1217 129/57 36.8 C (98.3 F) Oral 83 15 99 % 1.676 m (5' 6") (!) 154 kg (339 lb) Physical Exam: Physical Exam Vitals and nursing note reviewed. Constitutional: General: He is not in acute distress. Appearance: Normal appearance. He is well-developed. He is obese. He is not ill-appearing. HENT: Head: Normocephalic and atraumatic. Right Ear: External ear normal. Left Ear: External ear normal. Nose: Nose normal. Mouth/Throat: Mouth: Mucous membranes are moist. Pharynx: Oropharynx is clear. No oropharyngeal exudate. Comments: Male feature facial hair distribution Eyes: General: No scleral icterus. Extraocular Movements: Extraocular movements intact. Conjunctiva/sclera: Conjunctivae normal. Pupils: Pupils are equal, round, and reactive to light. Cardiovascular: Rate and Rhythm: Normal rate and regular rhythm. Pulses: Normal pulses. Heart sounds: Normal heart sounds. No murmur heard. No friction rub. No gallop. Pulmonary: Effort: Pulmonary effort is normal. No respiratory distress. Breath sounds: Normal breath sounds. No stridor. No wheezing, rhonchi or rales. Abdominal: General: Abdomen is flat. There is no distension. Palpations: Abdomen is soft. There is no mass. Tenderness: There is no abdominal tenderness. There is no guarding or rebound. Hernia: No hernia is present. Comments: Mild diffuse discomfort. Genitourinary: Comments: Female features. Musculoskeletal: General: No swelling or deformity. Normal range of motion. Right lower leg: No edema. Left lower leg: No edema. Comments: R AKA. L with chronic inflammatory changes, tinea pedis. Skin: General: Skin is warm and dry. Coloration: Skin is not jaundiced. Findings: No rash. Comments: Yeast smell Neurological: General: No focal deficit present. Mental Status: He is alert and oriented to person, place, and time. Mental status is at baseline. Cranial Nerves: No cranial nerve deficit. Deep Tendon Reflexes: Reflexes normal. Psychiatric: Mood and Affect: Mood normal. Behavior: Behavior normal. Thought Content: Thought content normal. Judgment: Judgment normal. Labs: Recent Labs 08/17/23 1336 08/17/23 1758 08/18/23 0340 NA 132* -- 130* K 4.8 -- 4.2 CL 99 -- 100 CO2 29 -- 24 BUN 17 -- 24 CREATININE 0.72 -- 0.76 GLUCOSE 71 29* 311* CALCIUM 8.8 -- 8.0* PROT 7.1 -- -- BILITOT 0.5 -- -- ALKPHOS 136* -- -- AST 29 -- -- ALT 47 -- -- Recent Labs 08/17/23 1336 08/18/23 0340 WBC 14.7* 13.2* HGB 12.5 12.2 HCT 37.7 36.1 PLT 468* 388 LYMPHOPCT 24.4 17.5* MONOPCT 8.5 8.8 BASOPCT 0.8 0.7 NEUTROABS 9.7* 9.5* Micro: No results for input(s): "COVID19" in the last 72 hours. 08/08 Urine K pneumo Klebsiella pneumoniae BROTH MICRODILUTION Amoxicillin / Clavulanate <=2 ug/ml Susceptible Ampicillin Resistant Ampicillin / Sulbactam 4 ug/ml Susceptible Aztreonam <=1 ug/ml Susceptible Cefazolin <=4 ug/ml Susceptible Cefepime <=1 ug/ml Susceptible Ceftriaxone <=1 ug/ml Susceptible Ciprofloxacin <=0.25 ug/ml Susceptible Gentamicin <=1 ug/ml Susceptible Meropenem <=0.25 ug/ml Susceptible Nitrofurantoin 128 ug/ml Resistant Piperacillin / Tazobactam <=4 ug/ml Susceptible Trimethoprim / Sulfamethoxazole <=20 ug/ml Susceptible Lines: PIV Radiography/Echo/Other: 08/17 CT Abd/pelvis: IMPRESSION: Limited study due to the patient's arms lying aside the torso.. Slight prominence of the left renal pelvis. Question subtle fat stranding adjacent to the mid left ureter. Correlate with urinalysis and clinically for recently passed renal stone. Enlarging right middle lobe pulmonary nodule, measuring approximately 8 mm. Short-term interval follow-up chest CT recommended. Findings within the spine suggestive of DISH versus ankylosing spondylitis. 08/08 CT Abd/Pelvis: IMPRESSION: ABDOMEN: Inflammatory fat stranding in the region of the left renal pelvis and along the left ureter. This is a nonspecific finding. Differential includes a recently passed stone versus an infectious process. No areas of nonenhancement are identified to suggest pyelonephritis. Correlation with urinalysis is recommended. Appendix not visualized however there are no inflammatory changes within the right lower quadrant. 7 mm nodule right lung base shows interval increase in size when dating back to 2021 where it measured 4 mm. Antimicrobials,Start/End Dates: Cefpodoxime 08/08-08/17 Ceftriaxone Fluconazole 08/18- Impression: Leukocytosis Recent bacteriuria with k pneumo L renal pelvis ureteral inflammation ? Recent passed stone vs. Infection. Urinary frequency sensation Transgender F->M, female organs. Intertrigo ? yeast Plan: Patient with two recent UAs that had minimal if any pyuria. This is not really consistent with pyelonephritis, though if he had pyelo, he has been adequately treated with antimicrobial for last 10 days. He does have some leukocytosis, but this is non specific. CT findings are not overwhelmingly convincing for pyelo. Of note, being F->M with female features, is possible also that he may be having yeast issues. Clinically, has evidence of skin yeast. Would suggest to DC ceftriaxone. Use fluconazole for brief course and add antifungal to L foot to address tinea pedis. No acute treatment for chronic L leg inflammation. Total time 75 minutes on this day of encounter includes counseling, coordinating plan of care, record and documentation review before and after visit including documentation and time not explicitly included on EMR time stamp for accounting for open encounter. Art Reddy MD, MACP, FIDSA documented in this encounter [facility] 08-18-2023 History and physical note Department of Family Medicine Attending History and Physical CHIEF COMPLAINT: abd pain Reason for Admission: possible uti History Obtained From: patient History of Present Illness Will Jacinto is a 57 y.o. adult who presents to the emergency department with upper abdominal pain nausea vomiting for the past week. Was seen and evaluated 1 week ago and diagnosed with pyelonephritis. States he is taking the antibiotics as prescribed with persistent symptoms. States feels like when he has had an ileus in the past. No other chest pain shortness of breath fevers or chills. No changes in bowel or bladder habits. ID saw him and didn't feel he needed anitbiotics for pyelo. They felt this was more due to yeast so he is on diflucan now. 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), unspecified side (HCC) Anxiety disorder Bipolar 1 disorder (HCC) Blood circulation, collateral Cellulitis chronic L lower leg COVID 12/08/2021 Depression Diabetes mellitus (HCC) Type II, on insulin Disease of blood and blood forming organ Endometrial carcinoma (HCC) 11/25/2020 Endometrial hyperplasia Foot ulcer (HCC) Hx of blood clots RLE prior to amputation Hyperlipidemia Hypertension Lymphedema 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; no specimens WISDOM TOOTH EXTRACTION Medications Prior to Admission: (Not in a hospital admission) Allergies: Patient has no known allergies. Social History: Social History Socioeconomic History Marital status: Single Tobacco Use Smoking status: Never Smokeless tobacco: Never Vaping Use Vaping Use: Never used Substance and Sexual Activity Alcohol use: No Drug use: Never Social Determinants of Health Intimate Partner Violence: Not At Risk (06/28/2023) Humiliation, Afraid, Rape, and Kick questionnaire Fear of Current or Ex-Partner: No Emotionally Abused: No Physically Abused: No Sexually Abused: No Family History: No family history on file. REVIEW OF SYSTEMS: Review of Systems 10 point ros negative except for hpi Objective Vitals: BP (!) 148/83 (BP Location: Right arm, Patient Position: Lying) Pulse 62 Temp 36.8 C (98.3 F) (Oral) Resp 14 Ht 5' 6" (1.676 m) Wt (!) 339 lb (154 kg) SpO2 100% BMI 54.72 kg/m Physical Exam Pt is alert and oriented x 3 Heent wnl Heart regular Lungs ctab Abd benign Ext right BKA Assessment/Plan Patient Active Problem List Diagnosis Endometrial carcinoma (HCC) Endometrial hyperplasia Hypertension Diabetic hyperosmolar non-ketotic state (CMS/HCC) (HCC) Thickened endometrium Ileus (CMS/HCC) (HCC) Complex endometrial hyperplasia with atypia Diabetic gastroparesis associated with type 2 diabetes mellitus (CMS/HCC) (HCC) Esophagitis Nausea and vomiting Hyperlipidemia Cellulitis and abscess of lower extremity Chronic acquired lymphedema Cellulitis Hyperandrogenism Uncontrolled type 2 diabetes mellitus with complication Chronic osteomyelitis (CMS/HCC) (HCC) 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 (HCC) Class 3 severe obesity due to excess calories with serious comorbidity and body mass index (BMI) of 50.0 to 59.9 in adult (HCC) Type 2 diabetes mellitus with hyperglycemia, with long-term current use of insulin (HCC) Hyperglycemia Post-menopausal bleeding Morbid obesity ([facility]) Left leg cellulitis Diabetic foot infection S/P AKA (above knee amputation) unilateral, right (HCC) Class 3 severe obesity due to excess calories with serious comorbidity and body mass index (BMI) of 60.0 to 69.9 in adult (HCC) Chest pain Chest pain, unspecified type Upper abdominal pain Intertriginous homa Abd pain DM 2 HTN HPL Plan Obs admit Hopefully back to snf tomorrow NABIL HILL DO 08/18/23 10:00 AM [facility] 08-18-2023 History and physical note Department of Family Medicine Attending History and Physical CHIEF COMPLAINT: abd pain Reason for Admission: possible uti History Obtained From: patient History of Present Illness Will Jacinto is a 57 y.o. adult who presents to the emergency department with upper abdominal pain nausea vomiting for the past week. Was seen and evaluated 1 week ago and diagnosed with pyelonephritis. States he is taking the antibiotics as prescribed with persistent symptoms. States feels like when he has had an ileus in the past. No other chest pain shortness of breath fevers or chills. No changes in bowel or bladder habits. ID saw him and didn't feel he needed anitbiotics for pyelo. They felt this was more due to yeast so he is on diflucan now. 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), unspecified side (HCC) Anxiety disorder Bipolar 1 disorder ([facility]) Blood circulation, collateral Cellulitis chronic L lower leg COVID 12/08/2021 Depression Diabetes mellitus (HCC) Type II, on insulin Disease of blood and blood forming organ Endometrial carcinoma (HCC) 11/25/2020 Endometrial hyperplasia Foot ulcer ([facility]) Hx of blood clots RLE prior to amputation Hyperlipidemia Hypertension Lymphedema 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, RLE Morbidly obese ([facility]) Muscle weakness Osteomyelitis (HCC) Osteomyelitis ([facility]) 2019 RLE Other lack of coordination Other specified soft tissue disorders Other symbolic dysfunctions Schizophrenia ([facility]) Sleep apnea no CPAP Venous insufficiency Past Surgical History: Past Surgical History: Procedure Laterality Date ABCESS DRAINAGE Right 09/09/2018 FOOT; ACH COLONOSCOPY 09/19/[address] Hyde DILATION AND CURETTAGE OF UTERUS 05/18/2019 HYSTEROSCOPY 12/23/2021 LEG AMPUTATION THROUGH KNEE Right 06/16/2019 UPPER GASTROINTESTINAL ENDOSCOPY N/A 06/29/2023 Dr Sergio Sibley at [facility]; no specimens WISDOM TOOTH EXTRACTION Medications Prior to Admission: (Not in a hospital admission) Allergies: Patient has no known allergies. Social History: Social History Socioeconomic History Marital status: Single Tobacco Use Smoking status: Never Smokeless tobacco: Never Vaping Use Vaping Use: Never used Substance and Sexual Activity Alcohol use: No Drug use: Never Social Determinants of Health Intimate Partner Violence: Not At Risk (06/28/2023) Humiliation, Afraid, Rape, and Kick questionnaire Fear of Current or Ex-Partner: No Emotionally Abused: No Physically Abused: No Sexually Abused: No Family History: No family history on file. REVIEW OF SYSTEMS: Review of Systems 10 point ros negative except for hpi Objective Vitals: BP (!) 148/83 (BP Location: Right arm, Patient Position: Lying) Pulse 62 Temp 36.8 C (98.3 F) (Oral) Resp 14 Ht 5' 6" (1.676 m) Wt (!) 339 lb (154 kg) SpO2 100% BMI 54.72 kg/m Physical Exam Pt is alert and oriented x 3 Heent wnl Heart regular Lungs ctab Abd benign Ext right BKA Assessment/Plan Patient Active Problem List Diagnosis Endometrial carcinoma (HCC) Endometrial hyperplasia Hypertension Diabetic hyperosmolar non-ketotic state (CMS/HCC) (HCC) Thickened endometrium Ileus (CMS/HCC) (HCC) Complex endometrial hyperplasia with atypia Diabetic gastroparesis associated with type 2 diabetes mellitus (CMS/HCC) ([facility]) Esophagitis Nausea and vomiting Hyperlipidemia Cellulitis and abscess of lower extremity Chronic acquired lymphedema Cellulitis Hyperandrogenism Uncontrolled type 2 diabetes mellitus with complication Chronic osteomyelitis (CMS/HCC) (HCC) 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 (HCC) Class 3 severe obesity due to excess calories with serious comorbidity and body mass index (BMI) of 50.0 to 59.9 in adult ([facility]) Type 2 diabetes mellitus with hyperglycemia, with long-term current use of insulin ([facility]) Hyperglycemia Post-menopausal bleeding Morbid obesity ([facility]) Left leg cellulitis Diabetic foot infection S/P AKA (above knee amputation) unilateral, right ([facility]) Class 3 severe obesity due to excess calories with serious comorbidity and body mass index (BMI) of 60.0 to 69.9 in adult ([facility]) Chest pain Chest pain, unspecified type Upper abdominal pain Intertriginous homa Abd pain DM 2 HTN HPL Plan Obs admit Hopefully back to snf tomorrow NABIL HILL DO 08/18/23 10:00 AM documented in this encounter [facility] 08-18-2023 Consult note Associated Order (s): IP CONSULT TO INFECTIOUS DISEASES Images from the original note were not included. [facility] - Infectious Diseases Attending Consult Note Reason for Consult: Complicated UTI History of Present Illness: Patient is 57 year old admitted to [facility] with abdominal discomfort N/V. Patient was in ED about 10 days ago with similar complaints and was diagnosed with pyelonephritis. Ws sent with 10 days of cefpodoxime. States symptoms are about the same. Complains mostly of abdominal discomfort and sense of urinary urgency. No significant fever or chills. Patient is legally female with male identity. No burning with urination. No CP/SOB. No new exacerbating or alleviating factors. Also states he has chronic RLE cellulitis. Has not had any changes. 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 other toe(s), unspecified side ([facility]) Anxiety disorder Bipolar 1 disorder ([facility]) Blood circulation, collateral Cellulitis chronic L lower leg COVID 12/08/2021 Depression Diabetes mellitus ([facility]) Type II, on insulin Disease of blood and blood forming organ Endometrial carcinoma ([facility]) 11/25/2020 Endometrial hyperplasia Foot ulcer ([facility]) Hx of blood clots RLE prior to amputation Hyperlipidemia Hypertension Lymphedema 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, RLE Morbidly obese ([facility]) Muscle weakness Osteomyelitis ([facility]) Osteomyelitis ([facility]) 2019 RLE Other lack of coordination Other specified soft tissue disorders Other symbolic dysfunctions Schizophrenia ([facility]) Sleep apnea no CPAP Venous insufficiency Past Surgical History: Past Surgical History: Procedure Laterality Date ABCESS DRAINAGE Right 09/09/2018 FOOT; ACH COLONOSCOPY 09/19/[address] Hyde DILATION AND CURETTAGE OF UTERUS 05/18/2019 HYSTEROSCOPY 12/23/2021 LEG AMPUTATION THROUGH KNEE Right 06/16/2019 UPPER GASTROINTESTINAL ENDOSCOPY N/A 06/29/2023 Dr Sergio Sibley at [facility]; no specimens WISDOM TOOTH EXTRACTION Current Medications: Current Facility-Administered Medications Medication Dose Route Frequency Provider Last Rate Last Admin acetaminophen (Tylenol) tablet 650 mg 650 mg Oral q6h PRN Nabil M Esterle, DO Or acetaminophen (Tylenol) suppository 650 mg 650 mg Rectal q6h PRN Nabil M Esterle, DO acidophilus lactobacillus 1 capsule 1 capsule Oral BID Nabil M Esterle, DO 1 capsule at 08/18/23 0617 ARIPiprazole (Abilify) tablet 10 mg 10 mg Oral Daily Nabil M Esterle, DO 10 mg at 08/18/23 0828 aspirin EC tablet 81 mg 81 mg Oral Daily Nabil M Esterle, DO 81 mg at 08/18/23 08 atorvastatin (Lipitor) tablet 10 mg 10 mg Oral Daily Nabil M Esterle, DO 10 mg at 08/18/23 0828 cefTRIAXone (Rocephin) 1,000 mg in sodium chloride 0.9 % 50 mL IVPB Mini-Bag Plus 1,000 mg IntraVENous q24h Nabil M Esterle, DO dextrose 5 % infusion 100 mL/hr IntraVENous PRN Brandon Leblanc, DO dextrose 50 % solution 12.5 g 12.5 g IntraVENous PRN Brandon Leblanc, DO 12.5 g at 08/17/23 1809 dilTIAZem CD (Cardizem CD) 24 hr capsule 180 mg 180 mg Oral Daily Nabil M Esterle, DO 180 mg at 08/18/23827 dulaglutide (Trulicity) injection 4.5 mg 4.5 mg SubCUTAneous Weekly Nabil M Esterle, DO enoxaparin (Lovenox) syringe 30 mg 30 mg SubCUTAneous 2 times per day Nabil M Esterle, DO 30 mg at 08/17/232328 FLUoxetine (PROzac) capsule 40 mg 40 mg Oral Daily Nabil M Esterle, DO 40 mg at 08/18/23827 gabapentin (Neurontin) capsule 100 mg 100 mg Oral BID Nabil M Esterle, DO 100 mg at 08/18/23827 glucagon (human recombinant) injection 1 mg 1 mg IntraMUSCular PRN Brandon Leblanc, DO glucose oral gel 15 g 15 g Oral PRN Brandon Leblanc, DO influenza vac subunit quadrivalent (Flucelvax) injection 0.5 mL 0.5 mL IntraMUSCular Prior to discharge Nabil M Esterle, DO insulin regular (HumuLIN R U-500) CONCENTRATED injection 280 Units 280 Units SubCUTAneous TID Nabil M Esterle, DO lisinopril tablet 40 mg 40 mg Oral Daily Nabil M Esterle, DO 40 mg at 08/18/2328 megestrol (Megace) tablet 20 mg 20 mg Oral BID Nabil M Esterle, DO 20 mg at 08/18/23 0841 metoclopramide (Reglan) tablet 10 mg 10 mg Oral 4x daily Nabil M Esterle, DO 10 mg at 08/18/23827 metoprolol tartrate (Lopressor) tablet 25 mg 25 mg Oral BID Nabil M Esterle, DO 25 mg at 08/18/23827 ondansetron ODT (Zofran-ODT) disintegrating tablet 4 mg 4 mg Oral q8h PRN Nabil M Esterle, DO Or ondansetron (Zofran) injection 4 mg 4 mg IntraVENous q6h PRN Nabil M Esterle, DO pantoprazole (ProtoNix) EC tablet 40 mg 40 mg Oral qAM AC Nabil M Esterle, DO 40 mg at 08/18/23 0620 polyethylene glycol (PEG) 3350 (Miralax) packet 17 g 17 g Oral Daily Nabil M Esterle, DO 17 g at 08/18/23 0900 polyethylene glycol (PEG) 3350 (Miralax) packet 17 g 17 g Oral Daily PRN Nabil M Esterle, DO potassium chloride CR (Klor-Con M20) ER tablet 20 mEq 20 mEq Oral q24h Nabil M Esterle, DO 20 mEq at 08/17/23 2330 Current Outpatient Medications Medication Sig Dispense Refill ARIPiprazole (Abilify) 10 MG tablet Every 24 hours. aspirin 81 MG EC tablet Take 1 tablet by mouth daily. atorvastatin (Lipitor) 10 MG tablet Take 1 tablet by mouth daily. cefpodoxime (Vantin) 200 MG tablet Take 1 tablet (200 mg) by mouth 2 times daily for 10 days. 20 tablet 0 dilTIAZem CD (Cardizem CD) 180 MG 24 hr capsule Take 180 mg by mouth daily. dulaglutide (Trulicity) 4.5 MG/0.5ML solution pen-injector Inject 4.5 mg under the skin 1 (one) time per week. FLUoxetine (PROzac) 40 MG capsule Take 40 mg by mouth daily. gabapentin (Neurontin) 100 MG capsule Take 100 mg by mouth in the morning and 100 mg before bedtime. insulin regular (HumuLIN R U-500 KWIKPEN) 500 UNIT/ML CONCENTRATED injection Inject under the skin 3 times daily. 285 units before breakfast/260 units before lunch/285 units before dinner Lactobacillus Acid-Pectin (Acidophilus/[place] Pectin) tablet Take 1 tablet by mouth in the morning and 1 tablet in the evening. lisinopril 40 MG tablet Every 24 hours. Loratadine 10 MG capsule Take by mouth. magnesium hydroxide (Milk of Magnesia Concentrate) 2400 MG/10ML suspension suspension Every 24 hours. megestrol (Megace) 20 MG tablet Take 1 tablet by mouth in the morning and 1 tablet before bedtime. metoclopramide (Reglan) 10 MG tablet Take 1 tablet (10 mg) by mouth in the morning and 1 tablet (10 mg) at noon and 1 tablet (10 mg) in the evening and 1 tablet (10 mg) before bedtime. Do all this for 7 days. 28 tablet 0 metoprolol tartrate (Lopressor) 25 MG tablet Take 1 tablet by mouth in the morning and 1 tablet before bedtime. miconazole (Micotin) 2 % powder Apply topically 2 times daily. ondansetron (Zofran) 4 MG tablet Take 8 mg by mouth. pantoprazole (ProtoNix) 40 MG EC tablet Take 40 mg by mouth. polyethylene glycol, PEG, 3350 (Glycolax) 17 GM/SCOOP powder Take 17 g by mouth daily. potassium chloride CR (K-Tab) 20 MEQ ER tablet Every 24 hours. Allergies: No Known Allergies Social History: Social History Socioeconomic History Marital status: Single Spouse name: Not on file Number of children: Not on file Years of education: Not on file Highest education level: Not on file Occupational History Not on file Tobacco Use Smoking status: Never Smokeless tobacco: Never Vaping Use Vaping Use: Never used Substance and Sexual Activity Alcohol use: No Drug use: Never Sexual activity: Not on file Other Topics Concern Not on file Social History Narrative Not on file Social Determinants of Health Financial Resource Strain: Not on file Food Insecurity: Not on file Transportation Needs: Not on file Physical Activity: Not on file Stress: Not on file Social Connections: Not on file Intimate Partner Violence: Not At Risk (06/28/2023) Humiliation, Afraid, Rape, and Kick questionnaire Fear of Current or Ex-Partner: No Emotionally Abused: No Physically Abused: No Sexually Abused: No Housing Stability: Not on file Family History: No family history on file. Review of Systems: Review of Systems Constitutional: Negative for appetite change, chills, fever and unexpected weight change. HENT: Negative for ear pain, hearing loss and tinnitus. Respiratory: Negative for shortness of breath. Cardiovascular: Negative for chest pain. Gastrointestinal: Positive for nausea and vomiting. Negative for diarrhea. Endocrine: Negative. Genitourinary: Positive for urgency. Negative for dysuria, flank pain and hematuria. Musculoskeletal: Negative. Skin: Negative for rash. Neurological: Negative. Negative for dizziness and light-headedness. Hematological: Negative. Psychiatric/Behavioral: Negative. All other systems reviewed and are negative. Vitals: Patient Vitals for the past 24 hrs: BP Temp Temp src Pulse Resp SpO2 Height Weight 10/10/23 1934 (!) 148/83 -- -- 62 14 100 % -- -- 08/17/23 1815 (!) 149/66 -- -- 52 15 96 % -- -- 08/17/23 1522 (!) 144/54 -- -- 62 18 94 % -- -- 08/17/23 1223 -- -- -- -- -- 99 % -- -- 08/17/23 1217 129/57 36.8 C (98.3 F) Oral 83 15 99 % 1.676 m (5' 6") (!) 154 kg (339 lb) Physical Exam: Physical Exam Vitals and nursing note reviewed. Constitutional: General: He is not in acute distress. Appearance: Normal appearance. He is well-developed. He is obese. He is not ill-appearing. HENT: Head: Normocephalic and atraumatic. Right Ear: External ear normal. Left Ear: External ear normal. Nose: Nose normal. Mouth/Throat: Mouth: Mucous membranes are moist. Pharynx: Oropharynx is clear. No oropharyngeal exudate. Comments: Male feature facial hair distribution Eyes: General: No scleral icterus. Extraocular Movements: Extraocular movements intact. Conjunctiva/sclera: Conjunctivae normal. Pupils: Pupils are equal, round, and reactive to light. Cardiovascular: Rate and Rhythm: Normal rate and regular rhythm. Pulses: Normal pulses. Heart sounds: Normal heart sounds. No murmur heard. No friction rub. No gallop. Pulmonary: Effort: Pulmonary effort is normal. No respiratory distress. Breath sounds: Normal breath sounds. No stridor. No wheezing, rhonchi or rales. Abdominal: General: Abdomen is flat. There is no distension. Palpations: Abdomen is soft. There is no mass. Tenderness: There is no abdominal tenderness. There is no guarding or rebound. Hernia: No hernia is present. Comments: Mild diffuse discomfort. Genitourinary: Comments: Female features. Musculoskeletal: General: No swelling or deformity. Normal range of motion. Right lower leg: No edema. Left lower leg: No edema. Comments: R AKA. L with chronic inflammatory changes, tinea pedis. Skin: General: Skin is warm and dry. Coloration: Skin is not jaundiced. Findings: No rash. Comments: Yeast smell Neurological: General: No focal deficit present. Mental Status: He is alert and oriented to person, place, and time. Mental status is at baseline. Cranial Nerves: No cranial nerve deficit. Deep Tendon Reflexes: Reflexes normal. Psychiatric: Mood and Affect: Mood normal. Behavior: Behavior normal. Thought Content: Thought content normal. Judgment: Judgment normal. Labs: Recent Labs 08/17/23 1336 08/17/23 1758 08/18/23 0340 NA 132* -- 130* K 4.8 -- 4.2 CL 99 -- 100 CO2 29 -- 24 BUN 17 -- 24 CREATININE 0.72 -- 0.76 GLUCOSE 71 29* 311* CALCIUM 8.8 -- 8.0* PROT 7.1 -- -- BILITOT 0.5 -- -- ALKPHOS 136* -- -- AST 29 -- -- ALT 47 -- -- Recent Labs 08/17/23 1336 08/18/23 0340 WBC 14.7* 13.2* HGB 12.5 12.2 HCT 37.7 36.1 PLT 468* 388 LYMPHOPCT 24.4 17.5* MONOPCT 8.5 8.8 BASOPCT 0.8 0.7 NEUTROABS 9.7* 9.5* Micro: No results for input(s): "COVID19" in the last 72 hours. 08/08 Urine K pneumo Klebsiella pneumoniae BROTH MICRODILUTION Amoxicillin / Clavulanate <=2 ug/ml Susceptible Ampicillin Resistant Ampicillin / Sulbactam 4 ug/ml Susceptible Aztreonam <=1 ug/ml Susceptible Cefazolin <=4 ug/ml Susceptible Cefepime <=1 ug/ml Susceptible Ceftriaxone <=1 ug/ml Susceptible Ciprofloxacin <=0.25 ug/ml Susceptible Gentamicin <=1 ug/ml Susceptible Meropenem <=0.25 ug/ml Susceptible Nitrofurantoin 128 ug/ml Resistant Piperacillin / Tazobactam <=4 ug/ml Susceptible Trimethoprim / Sulfamethoxazole <=20 ug/ml Susceptible Lines: PIV Radiography/Echo/Other: 08/17 CT Abd/pelvis: IMPRESSION: Limited study due to the patient's arms lying aside the torso.. Slight prominence of the left renal pelvis. Question subtle fat stranding adjacent to the mid left ureter. Correlate with urinalysis and clinically for recently passed renal stone. Enlarging right middle lobe pulmonary nodule, measuring approximately 8 mm. Short-term interval follow-up chest CT recommended. Findings within the spine suggestive of DISH versus ankylosing spondylitis. 08/08 CT Abd/Pelvis: IMPRESSION: ABDOMEN: Inflammatory fat stranding in the region of the left renal pelvis and along the left ureter. This is a nonspecific finding. Differential includes a recently passed stone versus an infectious process. No areas of nonenhancement are identified to suggest pyelonephritis. Correlation with urinalysis is recommended. Appendix not visualized however there are no inflammatory changes within the right lower quadrant. 7 mm nodule right lung base shows interval increase in size when dating back to 2021 where it measured 4 mm. Antimicrobials,Start/End Dates: Cefpodoxime 08/08-08/17 Ceftriaxone Fluconazole 08/18- Impression: Leukocytosis Recent bacteriuria with k pneumo L renal pelvis ureteral inflammation ? Recent passed stone vs. Infection. Urinary frequency sensation Transgender F->M, female organs. Intertrigo ? yeast Plan: Patient with two recent UAs that had minimal if any pyuria. This is not really consistent with pyelonephritis, though if he had pyelo, he has been adequately treated with antimicrobial for last 10 days. He does have some leukocytosis, but this is non specific. CT findings are not overwhelmingly convincing for pyelo. Of note, being F->M with female features, is possible also that he may be having yeast issues. Clinically, has evidence of skin yeast. Would suggest to DC ceftriaxone. Use fluconazole for brief course and add antifungal to L foot to address tinea pedis. No acute treatment for chronic L leg inflammation. Total time 75 minutes on this day of encounter includes counseling, coordinating plan of care, record and documentation review before and after visit including documentation and time not explicitly included on EMR time stamp for accounting for open encounter. Art Reddy MD, [facility], [facility] 08-17-2023 Emergency department Note Bed: 27 Expected date: Expected time: Means of arrival: Comments: PHYSICIANS Lisa Curtis RN 08/17/23 1215 [facility] 08-17-2023 Emergency department Note Bed: 08 Expected date: Expected time: Means of arrival: Comments: Main 2 Dalila Mendes RN 08/17/[id number] [facility] 08-17-2023 Emergency department Triage note Arrived via ems from snf, co ABD pain 02/15 x 1 week, previous dx of uti, current tx w/ ATB, prior to arrival pt had zofran 4 mg at 8 am, IV placed by ems, pt able to speak in complete sentences and provide own pmhx, placed on monitor with call light within reach, continue with plan of care [facility] 08-17-2023 Physician Emergency department Note EMERGENCY DEPARTMENT ENCOUNTER Pt Name: Will Jacinto Birthdate 1965 Date of evaluation: 08/17/2023 ED Provider: Aaron Burgos DO CHIEF COMPLAINT Chief Complaint Patient presents with Abdominal Pain X 1 week HISTORY OF PRESENT ILLNESS (Location/Symptom, Timing/Onset, Context/Setting, Quality, Duration, Modifying Factors, Severity) Note limiting factors. I wore appropriate PPE for the entirety of this encounter. HPI Will Jacinto is a 57 y.o. adult who presents to the emergency department with upper abdominal pain nausea vomiting for the past week. Was seen and evaluated 1 week ago and diagnosed with pyelonephritis. States he is taking the antibiotics as prescribed with persistent symptoms. States feels like when he has had an ileus in the past. No other chest pain shortness of breath fevers or chills. No changes in bowel or bladder habits. Nursing Notes were reviewed. REVIEW OF SYSTEMS 14 systems reviewed and otherwise acutely negative except as in the [place]. 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) Acquired absence of other toe(s), unspecified side (HCC) Anxiety disorder Bipolar 1 disorder ([facility]) Blood circulation, collateral Cellulitis chronic L lower leg COVID 12/08/2021 Depression Diabetes mellitus ([facility]) Type II, on insulin Disease of blood and blood forming organ Endometrial carcinoma ([facility]) 11/25/2020 Endometrial hyperplasia Foot ulcer (HCC) Hx of blood clots RLE prior to amputation Hyperlipidemia Hypertension Lymphedema 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, RLE Morbidly obese (HCC) Muscle weakness Osteomyelitis (HCC) Osteomyelitis (HCC) 2019 RLE Other lack of coordination Other specified soft tissue disorders Other symbolic dysfunctions Schizophrenia ([facility]) Sleep apnea no CPAP Venous insufficiency SURGICAL HISTORY Past Surgical History: Procedure Laterality Date ABCESS DRAINAGE Right 09/09/2018 FOOT; [facility] COLONOSCOPY 09/19/[address] Hyde DILATION AND CURETTAGE OF UTERUS 05/18/2019 HYSTEROSCOPY 12/23/2021 LEG AMPUTATION THROUGH KNEE Right 06/16/2019 UPPER GASTROINTESTINAL ENDOSCOPY N/A 06/29/2023 Dr Sergio Sibley at [facility]; no specimens WISDOM TOOTH EXTRACTION CURRENT MEDICATIONS Previous Medications ARIPIPRAZOLE (ABILIFY) 10 MG TABLET Every 24 hours. ASPIRIN 81 MG EC TABLET Take 1 tablet by mouth daily. ATORVASTATIN (LIPITOR) 10 MG TABLET Take 1 tablet by mouth daily. CEFPODOXIME (VANTIN) 200 MG TABLET Take 1 tablet (200 mg) by mouth 2 times daily for 10 days. DILTIAZEM CD (CARDIZEM CD) 180 MG 24 HR CAPSULE Take 180 mg by mouth daily. DULAGLUTIDE (TRULICITY) 4.5 MG/0.5ML SOLUTION PEN-INJECTOR Inject 4.5 mg under the skin 1 (one) time per week. FLUOXETINE (PROZAC) 40 MG CAPSULE Take 40 mg by mouth daily. GABAPENTIN (NEURONTIN) 100 MG CAPSULE Take 100 mg by mouth in the morning and 100 mg before bedtime. INSULIN REGULAR (HUMULIN R U-500 KWIKPEN) 500 UNIT/ML CONCENTRATED INJECTION Inject under the skin 3 times daily. 285 units before breakfast/260 units before lunch/285 units before dinner LACTOBACILLUS ACID-PECTIN (ACIDOPHILUS/CITRUS PECTIN) TABLET Take 1 tablet by mouth in the morning and 1 tablet in the evening. LISINOPRIL 40 MG TABLET Every 24 hours. LORATADINE 10 MG CAPSULE Take by mouth. MAGNESIUM HYDROXIDE (MILK OF MAGNESIA CONCENTRATE) 2400 MG/10ML SUSPENSION SUSPENSION Every 24 hours. MEGESTROL (MEGACE) 20 MG TABLET Take 1 tablet by mouth in the morning and 1 tablet before bedtime. METOCLOPRAMIDE (REGLAN) 10 MG TABLET Take 1 tablet (10 mg) by mouth in the morning and 1 tablet (10 mg) at noon and 1 tablet (10 mg) in the evening and 1 tablet (10 mg) before bedtime. Do all this for 7 days. METOPROLOL TARTRATE (LOPRESSOR) 25 MG TABLET Take 1 tablet by mouth in the morning and 1 tablet before bedtime. MICONAZOLE (MICOTIN) 2 % POWDER Apply topically 2 times daily. ONDANSETRON (ZOFRAN) 4 MG TABLET Take 8 mg by mouth. PANTOPRAZOLE (PROTONIX) 40 MG EC TABLET Take 40 mg by mouth. POLYETHYLENE GLYCOL, PEG, 3350 (GLYCOLAX) 17 GM/SCOOP POWDER Take 17 g by mouth daily. POTASSIUM CHLORIDE CR (K-TAB) 20 MEQ ER TABLET Every 24 hours. ALLERGIES Patient has no known allergies. FAMILY HISTORY No family history on file. SOCIAL HISTORY Social History Socioeconomic History Marital status: Single Tobacco Use Smoking status: Never Smokeless tobacco: Never Vaping Use Vaping Use: Never used Substance and Sexual Activity Alcohol use: No Drug use: Never Social Determinants of Health Intimate Partner Violence: Not At Risk (06/28/2023) Humiliation, Afraid, Rape, and Kick questionnaire Fear of Current or Ex-Partner: No Emotionally Abused: No Physically Abused: No Sexually Abused: No SCREENINGS PHYSICAL EXAM ED Triage Vitals [08/17/23 1217] Temp Heart Rate Resp BP 36.8 C (98.3 F) 83 15 129/57 SpO2 Temp Source Heart Rate Source Patient Position 99 % Oral Monitor Lying BP Location FiO2 (%) Right arm -- CONSTITUTIONAL: AOx4, no apparent distress, appears stated age HEAD: normocephalic, atraumatic EYES: PERRL, EOMI ENT: moist mucous membranes, uvula midline NECK: supple, symmetric BACK: symmetric LUNGS: clear to auscultation bilaterally CARDIOVASCULAR: regular rate and rhythm, no murmurs, rubs or gallops ABDOMEN: soft, mild upper abdomen tenderness to palpation, non-distended with normal active bowel sounds : deferred NEUROLOGIC: MAEx4, no focal sensory or motor deficits MUSCULOSKELETAL: no clubbing, cyanosis or edema SKIN: no exposed rash DIAGNOSTIC RESULTS Procedures/EKG: EKG was reviewed by myself. [facility] RAD[facility]OLOGY (Per Emergency Physician): Interpretation per the Radiologist below, if available at the time of this note: CT abdomen pelvis w contrast (Results Pending) ED BEDSIDE ULTRASOUND: Performed by ED Physician - none LABS: Labs Reviewed CBC WITH AUTO DIFFERENTIAL - Abnormal Result Value Auto WBC 14.7 (*) RBC 4.57 Hemoglobin 12.5 Hematocrit 37.7 MCV 82.4 MCH 27.2 MCHC 33.1 RDW 15.3 (*) Platelets 468 (*) MPV 7.5 nRBC 0.0 Neutrophils Relative 65.9 Lymphocytes Relative 24.4 Monocytes Relative 8.5 Eosinophils Relative 0.4 (*) Basophils Relative 0.8 Neutrophils Absolute 9.7 (*) Lymphocytes Absolute 3.6 Monocytes Absolute 1.3 (*) Eosinophils Absolute 0.1 Basophils Absolute 0.1 COMPREHENSIVE METABOLIC PANEL - Abnormal SODIUM 132 (*) POTASSIUM 4.8 CHLORIDE 99 CARBON DIOXIDE 29 ANION GAP 4 UREA NITROGEN 17 CREATININE 0.72 GLUCOSE 71 CALCIUM 8.8 AST (SGOT) 29 ALT 47 ALKALINE PHOSPHATASE 136 (*) ALBUMIN 4.0 BILIRUBIN, TOTAL 0.5 TOTAL PROTEIN 7.1 eGFR >90.0 LIPASE - Normal LIPASE 62 LACTIC ACID WITH REFLEX - Normal LACTIC ACID 1.1 COMPLETE URINALYSIS WITH REFLEX TO CULTURE Narrative: The following orders were created for panel order Urinalysis Complete with reflex to Culture. Procedure Abnormality Status --------- ------ Complete Urinalysis[[id number]] Please view results for these tests on the individual orders. COMPLETE URINALYSIS All other labs were within normal range or not returned as of this dictation. EMERGENCY DEPARTMENT COURSE and DIFFERENTIAL DIAGNOSIS/MDM: Vitals: Vitals: 08/17/23 1217 08/17/23 1223 08/17/23 1522 BP: 129/57 (!) 144/54 BP Location: Right arm Right arm Patient Position: Lying Lying Pulse: 83 62 Resp: 15 18 Temp: 36.8 C (98.3 F) TempSrc: Oral SpO2: 99% 99% 94% Weight: (!) 154 kg (339 lb) Height: 1.676 m (5' 6") EMERGENCY DEPARTMENT COURSE and DIFFERENTIAL DIAGNOSIS/MDM: Vitals: Vitals: 08/17/23 1217 08/17/23 1223 08/17/23 1522 BP: 129/57 (!) 144/54 BP Location: Right arm Right arm Patient Position: Lying Lying Pulse: 83 62 Resp: 15 18 Temp: 36.8 C (98.3 F) TempSrc: Oral SpO2: 99% 99% 94% Weight: (!) 154 kg (339 lb) Height: 1.676 m (5' 6") The patient presented with a chief complaint of upper abdominal pain nausea vomiting. The differential diagnosis associated with this patient's presentation includes ileus, obstruction, infection. Our workup consisted of ordering/reviewing the scan pelvis still pending. Patient does have a leukocytosis. Given Reglan Toradol fluids for his symptoms. Signed out to oncoming physician for final disposition pending CT scan of the abdomen pelvis. ED Course as of 08/17/232248e Aug 17, [id number] CT abdomen pelvis w contrast [JAYLENE] ED Course User Index [JAYLENE] Brandon Leblanc DO Diagnoses as of 08/17/232248 Upper abdominal pain Hypoglycemia Diagnostic tests considered but not performed: External records reviewed: Diagnostics interpreted by me: Discussions with other clinicians: Chronic conditions impacting care: Social determinants of health affecting care: ED Medications managed: Medications metoclopramide (Reglan) injection 10 mg (10 mg IntraVENous Given 08/17/23 1342) ketorolac (Toradol) injection 15 mg (15 mg IntraVENous Given 08/17/23 1342) sodium chloride 0.9 % bolus 500 mL (0 mL IntraVENous Stopped 08/17/23 1521) iopamidol (Isovue-370) 76 % injection 75 mL (75 mL IntraVENous Given 08/17/23 1506) CONSULTS: None PROCEDURES: Unless otherwise noted below, none Procedures Patients symptoms are consistent with sepsis, severe sepsis, or septic shock (If yes use ".sepsiscoremeasure"): FINAL IMPRESSION 1. Upper abdominal pain DISPOSITION/PLAN pending PATIENT REFERRED TO: No follow-up provider specified. DISCHARGE MEDICATIONS: New Prescriptions No medications on file (Comment: Please note this report has been produced using speech recognition software and may contain errors related to that system including errors in grammar, punctuation, and spelling, as well as words and phrases that may be inappropriate. If there are any questions or concerns please feel free to contact the dictating provider for clarification.) Aaron Burgos DO (electronically signed) Emergency Medicine Provider Aaron Burgos DO 08/17/23 1528 [facility] 08-17-2023 Physician Emergency department Note Pt signed out to me by Dr. Burgos. At the time of signout, CT abdomen/pelvis and urinalysis pending. CT revealed Limited study due to the patient's arms lying aside the torso.. Slight prominence of the left renal pelvis. Question subtle fat stranding adjacent to the mid left ureter. Correlate with urinalysis and clinically for recently passed renal stone. Enlarging right middle lobe pulmonary nodule, measuring approximately 8 mm. Short-term interval follow-up chest CT recommended. Findings within the spine suggestive of DISH versus ankylosing spondylitis. Given stranding around the ureter despite urinalysis with no WBCs or leuks, will give ceftriaxone. Patient intermittently became hypoglycemic. Improved with D50. Patient admitted to medicine further management Brandon Leblanc DO 08/17/23 2038 [facility] 08-12-2023 Telephone encounter Note Faxed over recommendation. Thank you! [facility] 08-12-2023 Miscellaneous Notes Faxed over recommendation. Thank you! Please keep doses the same thank you Images from the original note were not included. Patient BGL documented in this encounter [facility] 08-12-2023 Telephone encounter Note Please keep doses the same thank you [facility] Work Phone: 08-11-2023 Telephone encounter Note Images from the original note were not included. Patient BGL [facility] 08-09-2023 Telephone encounter Note Pt rescheduled appt with herberchava Ramos to 08/13/23; respiratory consult for lung nodule was placed on 08/07/[address] AP confirmed 7mm lung nodule. Navigator will continue to follow and assist with follow up as needed after appt 08/13. [facility] 08-09-2023 Miscellaneous Notes Pt rescheduled appt with herber Richard to 08/13/23; respiratory consult for lung nodule was placed on 08/07/[address] AP confirmed 7mm lung nodule. Navigator will continue to follow and assist with follow up as needed after appt 08/13. Pt to see Herber Ramos in [facility] 07/30/[address] Guzman office, pt does not have any scheduled fu. Provided new phone number for patient. Added to chart. Faxed report and contact info for navigator to Jared Guzman office. Received call from someone at [phone] stating they got a call to this number and this is a work phone. Patient and person identified via phone do not match. Will not attempt phone number again. EC contact attempted but no answer. Lm requesting a return phone call to discuss finding Patient appeared on ED Nuance search after CTA chest 06-28-2023 noted a 7 mm right middle lobe lung nodule. Imaging was completed for chest pain and history of DVT. Outside facility imaging on 11-22-2020 noted a right middle lobe 3 mm nodule. Requested outside facility imaging for comparison to determine whether this is an enlarging finding.Await comparison report. documented in this encounter [facility] 08-08-2023 Emergency department Note Physicians [facility]arrived and report given. Patient returned to . SNF was informed. Karlos Garcia RN 08/08/23 1448 Karlos Garcia RN 08/08/23 1449 [facility] 08-08-2023 Emergency department Note Physicians [facility]arrived and report given. Patient returned to SNF. SNF was informed. Karlos Garcia RN 08/08/23 1448 Karlos Garcia RN 08/08/23 1449 Karlos Garcia RN 08/08/231122 Karlos Garcia RN 08/08/231122 Bed: 17 Expected date: Expected time: Means of arrival: Comments: Nalini Mendes RN 08/08/23 0632 documented in this encounter [facility] 08-08-2023 Emergency department Note Karlos Garcia RN 08/08/231122 Karlos Garcia RN 08/08/231122 [facility] 08-08-2023 Emergency department Note Bed: 17 Expected date: Expected time: Means of arrival: Comments: Nalini Mendes RN 08/08/23 0632 [facility] 07-23-2023 Telephone encounter Note Pt to see Herber Ramos in [facility] 07/30/23 [facility] 07-23-2023 Miscellaneous Notes Pt to see Herber Ramos in [facility] 07/30/[address] Guzman office, pt does not have any scheduled fu. Provided new phone number for patient. Added to chart. Faxed report and contact info for navigator to Jared Guzman office. Received call from someone at [phone] stating they got a call to this number and this is a work phone. Patient and person identified via phone do not match. Will not attempt phone number again. EC contact attempted but no answer. Lm requesting a return phone call to discuss finding Patient appeared on ED Nuance search after CTA chest 06-28-2023 noted a 7 mm right middle lobe lung nodule. Imaging was completed for chest pain and history of DVT. Outside facility imaging on 11-22-2020 noted a right middle lobe 3 mm nodule. Requested outside facility imaging for comparison to determine whether this is an enlarging finding.Await comparison report. documented in this encounter [facility] 07-20-2023 Telephone encounter Note Contacted Dr. Guzman office, pt does not have any scheduled fu. Provided new phone number for patient. Added to chart. [facility] 07-20-2023 Telephone encounter Note Faxed report and contact info for navigator to Jared Guzman office. [facility] 07-20-2023 Telephone encounter Note Received call from someone at [phone] stating they got a call to this number and this is a work phone. Patient and person identified via phone do not match. Will not attempt phone number again. EC contact attempted but no answer. T [facility] 07-15-2023 Telephone encounter Note Lm requesting a return phone call to discuss finding T [facility] 07-05-2023 Telephone encounter Note Patient appeared on ED Nuance search after CTA chest 06-28-2023 noted a 7 mm right middle lobe lung nodule. Imaging was completed for chest pain and history of DVT. Outside facility imaging on 11-22-2020 noted a right middle lobe 3 mm nodule. Requested outside facility imaging for comparison to determine whether this is an enlarging finding.Await comparison report. [facility] 07-01-2023 Note Formatting of this n ote might be different from the original. Return to [facility] this afternoon at 1:00. [facility] messaged the facility with the dc time. [facility] ambulance to transport. Ambulance transport form completed. [facility] 07-01-2023 Note Formatting of this n ote might be different from the original. Return to [facility] this afternoon at 1:00. [facility] messaged the facility with the dc time. [facility] ambulance to transport. Ambulance transport form completed. [facility] 07-01-2023 Miscellaneous Notes Return to [facility] this afternoon at 1:00. [facility] messaged the facility with the dc time. [facility] to transport. Ambulance transport form completed. Discharge med list transmitted to [facility] via [facility] per [facility] request. Patient Choice Patient Name: WILL JACINTO Date of : 1965 All Providers Sent Referral Name: [facility] Phone: [phone] Address: [address] [place] [address] Images from the original note were not included. Care Management Progress Note Pt has discharge order placed. Tasked WIRE STITCHER OPERATOR to send discharge paperwork to [facility]. Notified LIGHT ARMORED VEHICLE OFFICER to arrange transportation. Facility notified pt to return today. Discharge Milestones and Delays Expected Date/Time: 07/01/2023 Midday Disposition: Snf Facility Transport status: No current request Discharge Milestones Completed Place discharge order Complete med reconciliation Case mgmt discharge readiness Expected Discharge History Expected Date/Time Set By Reviewed At 07/01/2023 Midday Nabil Hill, DO 06/30/2023 7:25 PM 06/30/2023 Nabil Hill, DO 06/28/2023 8:48 AM 06/29/2023 Herber Armando RN 06/28/2023 7:51 AM 06/29/2023 Rosaura Mustafa DO 06/28/2023 6:19 AM 06/29/2023 Rosaura Mustafa DO 06/28/2023 5:11 AM Length of Stay (Days): 3 GMLOS: 1.7 Images from the original note were not included. Care Management Progress Note Pt remains on 2E due to chest pain. S/P EGD 06/29-GI following.Cardiology- no evidence of ACS. Endocrine following. Pt to return to [place] at discharge. Discharge Milestones and Delays Expected Date/Time: 06/30/[address] discharge order Complete med reconciliation Case mgmt discharge readiness Clinical Stability Diagnsotic Workup Expected Discharge History Expected Date/Time Set By Reviewed At 06/30/2023 Nabil Hill, DO 06/28/2023 8:48 AM 06/29/2023 Herber Armando RN 06/28/2023 7:51 AM 06/29/2023 Rosaura Mustafa DO 06/28/2023 6:19 AM 06/29/2023 Rosaura Mustafa DO 06/28/2023 5:11 AM Length of Stay (Days): 2 GMLOS: 1.7 The patient is Moderately Stable - Low risk of patient condition declining or worsening The patient's goals for the shift include no nausea The clinical goals for the shift include manage nausea/decrease anxiety Over the shift, the patient did not make progress toward the following goals. Barriers to progression include elevated levels of anxiety. Recommendations to address these barriers include implement nonpharmacological interventions to manage anxiety. Images from the original note were not included. Care Management Progress Note Chart reviewed. Patient remains on 2 east with chest pain. HX transgender F-M, Schizophrenia, Bipolar. R BKA, is wheelchair bound. Cardiology and GI following. Plan for EGD today. Wheelchair bound. DC plan: [place] [facility] [place], bed hold. No authorization needed. Discharge Milestones and Delays Expected Date/Time: 06/30/[address] discharge order Complete med reconciliation Case mgmt discharge readiness Clinical Stability Diagnsotic Workup Expected Discharge History Expected Date/Time Set By Reviewed At 06/30/2023 Nabil Hill DO 06/28/2023 8:48 AM 06/29/2023 Herber Armando RN 06/28/2023 7:51 AM 06/29/2023 Rosaura Mustafa DO 06/28/2023 6:19 AM 06/29/2023 Rosaura Mustafa DO 06/28/2023 5:11 AM Length of Stay (Days): 1 GMLOS: 1.7 Report called to Herber Hawk POST ENDOSCOPY PROCEDURE TRANSFER REPORT Procedure completed: EGD Findings: WDL Specimens obtained: None Medications administered: 200mg Propofol per MEDICAL BILLING AND CODING SPECIALIST Additional Info: Adult diet regular; 3 carb choices (45gm/meal); see Dr Sibley' orders For additional Questions please call Endoscopy at [phone]. Thank You! Dr Sibley in room talking [facility] Name: Will Jacinto Procedure Date: 06/29/2023 8:19 AM Gender: Female Date of : 1965 Age: 57 Admit Type: Inpatient Note Status: Finalized Endoscopist: Sergio Sibley DO, [id number] Procedure: Upper GI endoscopy Indications: Chest pain (non cardiac), Nausea with vomiting Findings: The examined esophagus was normal. The Z-line was regular and was found 41 cm from the incisors. The entire examined stomach, cardia (on retroflexion) and gastric fundus (on retroflexion) were normal. The duodenal bulb and second portion of the duodenum were normal. Impression: - Normal esophagus. - Z-line regular, 41 cm from the incisors. - Normal stomach, cardia and gastric fundus. - Normal duodenal bulb and second portion of the duodenum. - No specimens collected. Recommendation: - Resume previous diet. - Continue present medications. - Tight glycemic control with small, frequent, low fat, low fiber meals - Will hold off on GES. Pt already on Reglan. Follow clinically Referring MD: Jared Guzman MD Medicines: Monitored Anesthesia Care, See the Anesthesia note for documentation of the administered medications Procedure: Pre-Anesthesia Assessment: - Prior to the procedure, a History and Physical was performed, and patient medications and allergies were reviewed. The patient's tolerance of previous anesthesia was also reviewed. The risks and benefits of the procedure and the sedation options and risks were discussed with the patient. All questions were answered, and informed consent was obtained. Prior Anticoagulants: The patient has taken no anticoagulant or antiplatelet agents. ASA Grade Assessment: III - A patient with severe systemic disease. After reviewing the risks and benefits, the patient was deemed in satisfactory condition to undergo the procedure. After obtaining informed consent, the endoscope was passed under direct vision. Throughout the procedure, the patient's blood pressure, pulse, and oxygen saturations were monitored continuously. The Endoscope was introduced through the mouth, and advanced to the second part of duodenum. The upper GI endoscopy was accomplished without difficulty. The patient tolerated the procedure well. Complications: No immediate complications. Procedure Code(s): --- Professional --- 22407, Esophagogastroduodenoscopy, flexible, transoral; diagnostic, including collection of specimen(s) by brushing or washing, when performed (separate procedure) --- Technical --- 08800, Esophagogastroduodenoscopy, flexible, transoral; diagnostic, including collection of specimen(s) by brushing or washing, when performed (separate procedure) Diagnosis Code(s): --- Professional --- R07.89, Other chest pain R11.2, Nausea with vomiting, unspecified --- Technical --- R07.89, Other chest pain R11.2, Nausea with vomiting, unspecified CPT copyright 2021 [employer]. All rights reserved. The codes documented in this report are preliminary and upon bead maker review may be revised to meet current compliance requirements. Attending Participation: I personally performed the entire procedure. Sergio Sibley DO 06/29/2023 10:29:14 AM This report has been signed electronically. Number of Addenda: 0 Note Initiated On: 06/29/2023 8:19 AM Care Managment Initial Assessment Date: 06/28/2023 Patient Name: Will Jacinto : 1965 Patient Information Source of Information: Patient Cognition/Language: WFL - Within Functional Limits Permission given to speak with patient scheduling representative/caregiver as indicated: Yes (Jovana Quesada ([facility]) [phone]) Confirmation of Payer with patient/family: Yes Payer Name: [facility] Dual Golden: No Confirmation of Primary Care Physician: Confirmed PCP Name: Jared Guzman Seen in last 2 years?: Yes Primary Caregiver: Other (Comment) ([facility] staff) If assistance needed, confirmed caregiver ready, willing and able to care for patient at discharge: Yes Confirmed with: Patient states staff from [facility] Living Arrangements Current Residence: ([facility]) Number of Floors Number of Entry Steps: Bed/Bath Levels: Facility: [facility] Facility Name: [facility] Plan to Return: Yes Lives with: Support Systems: Family members Activities of Daily Living Ambulation: Total Care (wheelchair) Bathing/Dressing: Total Care Elimination/Continence/Toileting : Assistance Feeding: Independent Who Assists with Activities of Daily Living: Staff from [facility] Instrumental Activities of Daily Living Prescription Coverage: Yes Pharmacy Used: Pharmacy through [facility] Medication Management: Assistance Type: Dose packaging system Who assists with medication securing and setup?: [facility] staff Transportation/Shopping: Assistance Provider Transportation Mode: Needs Assistance with Transportation at Discharge: No Meal Preparation: Assistance Provider Meal Prep Assistance Provider Name: [facility] staff Laundry/Cleaning: Assistance Provider Laundry/Cleaning Assistance Provider Name: [facility] staff Finances/Bill Paying: Assistance Provider Finances/Bill Payer Assistance Provider Name: Family Communication: Independent Types of Care Services/Equipment Utilized Care Services: Dialysis Type: NA Durable Medical Equipment: Wheelchair (standard or power) Patient's Goal/Discharge Plan Patient expects to be discharged to: Back to [facility]. Discharge Planning Actions: Continue to follow Patient's Choice Rights and [employer] and Collaborative Relationships Disclosed as Indicated for Post-Acute Care: Interdisciplinary Team Engagement: Social Work Referral for: Additional Information: Spoke with patient at bedside. Introduced self and role. Discharge planning needs discussed. Patient in hospital due to chest pain, nausea. Troponin negative so far. He has a R bka, is wheelchair bound. Lives at [facility] and plans to return. Cardiology consulted. Task sent to [facility] to [facility] return referral to [facility]. TCC will continue to follow. Herber Armando RN Patient was referred to the [facility] service for admission but his primary care physician is covered by Dr. Hill. Dr. Hill will see and admit. Attending changed to Dr. Hill. documented in this encounter [facility] 07-01-2023 Note Formatting of this n ote might be different from the original. Discharge med list transmitted to [facility] via [facility] per [facility] request. [facility] 07-01-2023 Note Formatting of this n ote might be different from the original. Discharge med list transmitted to [facility] per [facility] request. [facility] 07-01-2023 Hospital course Narrative Discharge Summary Will Jacinto : 1965 ADMIT DATE: 06/28/2023 DISCHARGE DATE: 07/01/2023 PRIMARY CARE PHYSICIAN: Jared Guzman VISIT STATUS: Admission CODE STATUS: Full Code DISCHARGE DIAGNOSES: Principal Problem: Chest pain Active Problems: Chest pain, unspecified type HOSPITAL COURSE: Pt admitted with n/v and chest pain. His cardiac markers were negative. He was seen by cardio and they didn't feel this was cardiac in nature. He was seen by GI as well and had an EGD that was unremarkable. Gi felt this was due to gastroparesis and he is already on reglan. His nausea seemed to improve. He was then discharged back to [facility] for continued care SIGNIFICANT DIAGNOSTIC STUDIES: EGD xrays labs CONSULTANTS: Cardio and GI RECOMMENDED NEXT STEPS: none DISCHARGE MEDICATIONS: Medication List CONTINUE taking these medications Acidophilus/Rosemead Pectin tablet ARIPiprazole 10 MG tablet Commonly known as: Abilify aspirin 81 MG EC tablet atorvastatin 10 MG tablet Commonly known as: Lipitor dilTIAZem CD 180 MG 24 hr capsule Commonly known as: Cardizem CD dulaglutide 4.5 MG/0.5ML solution pen-injector Commonly known as: Trulicity FLUoxetine 40 MG capsule Commonly known as: PROzac gabapentin 100 MG capsule Commonly known as: Neurontin HumuLIN R U-500 KWIKPEN 500 UNIT/ML CONCENTRATED injection Generic drug: insulin regular lisinopril 40 MG tablet Loratadine 10 MG capsule megestrol 20 MG tablet Commonly known as: Megace metoclopramide 10 MG tablet Commonly known as: Reglan Take 1 tablet (10 mg) by mouth in the morning and 1 tablet (10 mg) at noon and 1 tablet (10 mg) in the evening and 1 tablet (10 mg) before bedtime. Do all this for 7 days. metoprolol tartrate 25 MG tablet Commonly known as: Lopressor miconazole 2 % powder Commonly known as: Micotin Milk of Magnesia Concentrate 2400 MG/10ML suspension suspension Generic drug: magnesium hydroxide ondansetron 4 MG tablet Commonly known as: Zofran pantoprazole 40 MG EC tablet Commonly known as: ProtoNix polyethylene glycol (PEG) 3350 17 GM/SCOOP powder Commonly known as: Glycolax potassium chloride CR 20 MEQ ER tablet Commonly known as: K-Tab DIET: Adult diet Regular; 3 carb choices (45 gm/meal) ACTIVITY: Up with assist COMPLEXITY OF FOLLOW UP: [] Moderate Complexity: follow up within 7-14 calendar days (03246) [] Severe Complexity: follow up within 7 calendar days (21468) FOLLOW UP TESTING, PENDING RESULTS OR REFERRALS AT TRANSITIONAL CARE VISIT: [] Yes [] No PENDING STUDIES: none DISPOSITION: Skilled Facility FACILITY/HOME CARE AGENCY NAME: [facility] Follow up with Sergio Sibley DO [address] [facility] [phone] Follow up As needed INSTRUCTIONS TO MA/SW: Please call patient on day after discharge (must document patient contacted within 2 business days of discharge). FOLLOW UP QUESTIONS FOR MA/SW: 1. Did you get medications filled and taking them as instructed from discharge? 2. Are you following your discharge instructions from your hospital stay? 3. Please confirm patient is scheduled for a follow up appointment within the above time frame. DISCHARGE TIME: > 30 minutes SIGNED: NABIL HILL DO 07/01/2023, 8:48 AM documented in this encounter [facility] 07-01-2023 Note Formatting of this n ote might be different from the original. Patient Choice Patient Name: WILL JACINTO Date of : 1965 All Providers Sent Referral Name: [facility] Phone: [phone] Address: [address] [place] [address] [place] [address] [facility] 07-01-2023 Note Formatting of this n ote might be different from the original. Patient Choice Patient Name: WILL JACINTO Date of : 1965 All Providers Sent Referral Name: [facility] Phone: [phone] Address: [address]a Arm[address] [place] [id number] [facility] [address] [facility] 07-01-2023 Note Formatting of this n ote is different from the original. Images from the original note were not included. Care Management Progress Note Pt has discharge order placed. Tasked WIRE STITCHER OPERATOR to send discharge paperwork to [facility]. Notified LIGHT ARMORED VEHICLE OFFICER to arrange transportation. Facility notified pt to return today. Discharge Milestones and Delays Expected Date/Time: 07/01/2023 Midday Disposition: Snf Facility Transport status: No current request Discharge Milestones Completed Place discharge order Complete med reconciliation Case mgmt discharge readiness Expected Discharge History Expected Date/Time Set By Reviewed At 07/01/2023 Midday Nabil Hill, DO 06/30/2023 7:25 PM 06/30/2023 Nabil Hill, DO 06/28/2023 8:48 AM 06/29/2023 Herber Armando RN 06/28/2023 7:51 AM 06/29/2023 Rosaura Mustafa DO 06/28/2023 6:19 AM 06/29/2023 Rosaura Mustafa DO 06/28/2023 5:11 AM Length of Stay (Days): 3 GMLOS: [address] [facility] [address] [facility] 07-01-2023 Note Formatting of this n ote is different from the original. Images from the original note were not included. Care Management Progress Note Pt has discharge order placed. Tasked WIRE STITCHER OPERATOR to send discharge paperwork to [facility]. Notified LIGHT ARMORED VEHICLE OFFICER to arrange transportation. Facility notified pt to return today. Discharge Milestones and Delays Expected Date/Time: 07/01/2023 Midday Disposition: Snf Facility Transport status: No current request Discharge Milestones Completed Place discharge order Complete med reconciliation Case mgmt discharge readiness Expected Discharge History Expected Date/Time Set By Reviewed At 07/01/2023 Midday Nabil Hill DO 06/30/2023 7:25 PM 06/30/2023 Nabil Hill, DO 06/28/2023 8:48 AM 06/29/2023 Herber Armando RN 06/28/2023 7:51 AM 06/29/2023 Rosaura Mustafa, 06/28/2023 6:19 AM 06/29/2023 Rosaura Mustafa DO 06/28/2023 5:11 AM Length of Stay (Days): 3 GMLOS: 1.7 [facility] 06-30-2023 Hospital Discharg e instructions David Lui RN - 06/30/2023 7:25 PM EDT Continuity of Care Form Patient Name: Will Jacinto : 1965 Admit date: 06/28/2023 Discharge date: 07/01/23 Code Status Order: Full Code Advance Directives: N Admitting Physician: Nabil Hill DO PCP: Jared Guzman Discharging Nurse: Janina Discharging Hospital Unit/Room#: B2-257/B2-257 A Discharging Unit Phone Number: [phone] Emergency Contact: Extended Emergency Contact Information Primary Emergency Contact: Jovana Quesada Relation: Relative Secondary Emergency Contact: Carola Lubin Mobile Relation: Other Past Surgical History: Past Surgical History: Procedure Laterality Date ABCESS DRAINAGE Right 09/09/2018 FOOT; ACH COLONOSCOPY 09/19/[address] Hyde DILATION AND CURETTAGE OF UTERUS 05/18/2019 HYSTEROSCOPY 12/23/2021 LEG AMPUTATION THROUGH KNEE Right 06/16/2019 UPPER GASTROINTESTINAL ENDOSCOPY N/A 06/29/2023 Dr Sergio Sibley at [facility]; no specimens WISDOM TOOTH EXTRACTION Immunization History: Immunization History Administered Date(s) Administered Covid-19, Pfizer Cazares Top, Do Not Dilute, (Age 12 Y+), Im, L 02/26/2022 Influenza, injectable, quadrivalent, preservative free 01/14/2019, 08/12/2021 Pfizer SARS-CoV-2 Vaccination 11/13/2020, 12/04/2020, 08/28/2021 Active Problems: Medical Problems Problem List * (Principal) Chest pain Hypertension Chest pain, unspecified type Endometrial carcinoma (HCC) Endometrial hyperplasia Diabetic hyperosmolar non-ketotic state (CMS/HCC) ([facility]) Thickened endometrium Ileus (CMS/HCC) (HCC) Complex endometrial hyperplasia with atypia Diabetic gastroparesis associated with type 2 diabetes mellitus ([facility]/HCC) ([facility]) Esophagitis Nausea and vomiting Hyperlipidemia Cellulitis and abscess of lower extremity Chronic acquired lymphedema Cellulitis Hyperandrogenism Uncontrolled type 2 diabetes mellitus with complication Chronic osteomyelitis ([facility]) ([facility]) 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 ([facility]) Class 3 severe obesity due to excess calories with serious comorbidity and body mass index (BMI) of 50.0 to 59.9 in adult ([facility]) Type 2 diabetes mellitus with hyperglycemia, with long-term current use of insulin ([facility]) ([facility]) Hyperglycemia Post-menopausal bleeding Morbid obesity ([facility]) Left leg cellulitis Diabetic foot infection ([facility]) S/P AKA (above knee amputation) unilateral, right ([facility]) Class 3 severe obesity due to excess calories with serious comorbidity and body mass index (BMI) of 60.0 to 69.9 in adult ([facility]) Isolation/Infection: Contact CRE Nurse Assessment: Last Vital Signs: BP (!) 160/90 Pulse 99 Temp 36.2 C (97.1 F) (Temporal) Resp 18 Wt (!) 329 lb 9.6 oz (150 kg) SpO2 94% BMI 53.20 kg/m Last documented pain score (0-10 scale): Last Weight: Wt Readings from Last 1 Encounters: 06/30/23 (!) 329 lb 9.6 oz (150 kg) Mental Status: CHRISTY Patient Mental Status: oriented IV Access: CHRISTY IV Access: None Nursing Mobility/ADLs: Walking Total assistance Transfer Total assistance Bathing Total assistance Dressing Total assistance Toileting Total assistance Feeding Independent Structural Iron Erector Independent Med Delivery yes Wound Care Documentation and Therapy: Elimination: Continence: Bowel: no Bladder: no Urinary Catheter: None Colostomy/Ileostomy/Ileal Conduit: None Date of Last BM: 06/30/23 Intake/Output Summary (Last 24 hours) at 06/30/20231924 Last data filed at 06/30/2023 0456 Gross per 24 hour Intake 702.5 ml Output 700 ml Net 2.5 ml I/O last 3 completed shifts: In: 1027.5 (6.9 mL/kg) [I.V.:1022.5 (6.8 mL/kg); IV Piggyback:5] Out: 700 (4.7 mL/kg) [Urine:700 (0.1 mL/kg/hr)] Weight: 149.5 kg Safety Concerns: none Impairments/Disabilities: none Nutrition Therapy: Current Nutrition Therapy: Oral diet: general Routes of Feeding: oral Liquids: no restrictions Daily Fluid Restriction: no Last Modified Barium Swallow with Video (Video Swallowing Test): not done Treatments at the Time of Hospital Discharge: Respiratory Treatments: none Oxygen Therapy: is not on home oxygen therapy. Ventilator: No ventilator support Rehab Therapies: physical therapy and occupational therapy Weight Bearing Status/Restrictions: no restriction Other Medical Equipment (for information only, NOT a DME order): none Other Treatments: none Patient's personal belongings (please select all that are sent with patient): clothes RN SIGNATURE: MANAGEMENT/SOCIAL WORK SECTION Inpatient Status Date: Readmission Risk Assessment Score: @READMISSIONRISKDETAILS@ Discharging to Facility/ Agency Name: [facility] Address: [address] [place] [address] Fax: Dialysis Facility (if applicable) Name: Address: Dialysis Schedule: Phone: Fax: Education Consultant/Frame Bender signature: ICIAN SECTION Prognosis: fair Condition at Discharge: stable Rehab Potential (if transferring to Rehab): fair Recommended Labs or Other Treatments After Discharge: none Physician Certification: I certify the above information and transfer of Will M McQuiggan is necessary for the continuing treatment of the diagnosis listed and that he requires custodial facility for greater than 30 days. Update Admission H&P: No change in H&P PHYSICIAN SIGNATURE: documented in this encounter [facility] 06-30-2023 Note Formatting of this n ote is different from the original. Images from the original note were not included. Care Management Progress Note Pt remains on 2E due to chest pain. S/P EGD 06/29-GI following.Cardiology- no evidence of ACS. Endocrine following. Pt to return to [place] at discharge. Discharge Milestones and Delays Expected Date/Time: 06/30/[address] discharge order Complete med reconciliation Case mgmt discharge readiness Clinical Stability Diagnsotic Workup Expected Discharge History Expected Date/Time Set By Reviewed At 06/30/2023 Nabil Hill DO 06/28/2023 8:48 AM 06/29/2023 Herber Armando RN 06/28/2023 7:51 AM 06/29/2023 Rosaura Mustafa DO 06/28/2023 6:19 AM 06/29/2023 Rosaura Mustafa DO 06/28/2023 5:11 AM Length of Stay (Days): 2 GMLOS: 1.7 [facility] 06-30-2023 Note Formatting of this n ote is different from the original. Images from the original note were not included. Care Management Progress Note Pt remains on 2E due to chest pain. S/P EGD 06/29-GI following.Cardiology- no evidence of ACS. Endocrine following. Pt to return to [place] at discharge. Discharge Milestones and Delays Expected Date/Time: 06/30/[address] discharge order Complete med reconciliation Case mgmt discharge readiness Clinical Stability Diagnsotic Workup Expected Discharge History Expected Date/Time Set By Reviewed At 06/30/2023 Nabil Chika Hill, DO 06/28/2023 8:48 AM 06/29/2023 Herber Armando RN 06/28/2023 7:51 AM 06/29/2023 Rosaura Mustafa, DO 06/28/2023 6:19 AM 06/29/2023 Rosaura Mustafa, DO 06/28/2023 5:11 AM Length of Stay (Days): 2 GMLOS: 1.7 [facility] 06-30-2023 History of Presen t illness Narrative [facility] Attending GI Progress Note SUBJECTIVE: ate lunch, less nausea Medications @MEDCMED@ OBJECTIVE VITALS: BP (!) 160/90 Pulse 99 Temp 36.2 C (97.1 F) (Temporal) Resp 18 Wt (!) 150 kg (329 lb 9.6 oz) SpO2 94% BMI 53.20 kg/m TEMPERATURE: Current - Temp: 36.2 C (97.1 F); Max - Temp Av.2 C (97.2 F) Min: 35.9 C (96.7 F) Max: 36.5 C (97.7 F) RESPIRATIONS RANGE: Resp Av.3 Min: 17 Max: 18 PULSE RANGE: Pulse Av.7 Min: 89 Max: 99 BLOOD PRESSURE RANGE: Systolic (24hrs), Av , Min:159 , Max:197 ; Diastolic (24hrs), Av, Min:78, Max:111 PULSE OXIMETRY RANGE: SpO2 Av % Min: 94 % Max: 94 % 24HR INTAKE/OUTPUT: Intake/Output Summary (Last 24 hours) at 06/30/2023 1421 Last data filed at 06/30/2023 0456 Gross per 24 hour Intake 702.5 ml Output 700 ml Net 2.5 ml GENERAL: Pleasant and NAD. Obese HEENT: NCAT, PERRLA, EOMI, Scleral anicteric. Oropharhynx clear with no erythema or exudate. Neck supple, no cervical LAD or thyromegaly. CV: RRR, NL S1/S2, no murmurs. Distal pulses palpable and equal b/l. LUNGS: CTA b/l. Normal percussion and palpation. No W/R/R. ABD: + BS, soft, non-tender and non-distended. No hepatosplenomegaly. No mass felt. No rebound or guarding. EXT: No C/C/E. No muscle atrophy. SKIN: No skin lesion or breakdown. NEURO: A&O x 3, CN II-XII grossly intact. No asterixis. Data Recent blood work, radiologic study and endoscopic study were reviewed with the patient. CBC: Recent Labs 06/28/23 0250 06/29/23 0230 WBC 11.8* 9.2 HGB 11.6* 10.8* HCT 35.1 32.6 PLT 384 361 HEPATIC: Recent Labs 06/29/23 0230 AST 32 ALT 41 BILITOT 0.3 ALKPHOS 121 LIPASE/AMYLASE: No results for input(s): AMYLASE, LIPASE in the last 72 hours. LACTATE: No lab exists for component: LACTA BNP: Recent Labs 06/28/23 0250 BNP 150 INR: No results for input(s): INR in the last 72 hours. ASSESSMENT AND PLAN 1. Nausea/vomiting with chest pressure - slow improvement. EGD unrevealing. Glycemic control, reglan, PPI. Nothing futher to add. Will sign off, ov with primary GI or gellis in 2 -3 months Department of Internal Medicine Division of Endocrinology, Diabetes, & Metabolism Endocrinology Note Patient Name: Will Jacinto : 1965 AGE: 57 y.o. Room/Bed: [facility] A Admission Date: 06/28/2023 Visit Date: 06/30/2023 Reason for Endocrine Consult: dm2 Provider/Team Requesting Consult: Dr. Hill PCP: Jared Guzman Outpt District Sales Coordinator: Dr. Lee [facility] ASSESSMENT: DM 2 poor control Cheat pain nausea Pmhx Aka Bipolar disorder Cellulitis Covid Depression Dm2 severe insulin resistance Endometrial cancer Hlp Htn Schizophrenia Osteomylelits John PLAN: Change to U500. Start Insulin U-500 100 units TID with meals Start Insulin NPH 50 units nightly Discussed with patient detection, monitoring, management, and prevention of hypoglycemia ICU goal <180 GMF goal <150 POCT ACHS Hypoglycemia per protocol Carb controlled diet ANTICIPATED ENDOCRINE HOME GOING RECOMMENDATIONS: Optimized for Discharge from Endocrine standpoint: No Home Going Endocrine Rx Recommendations-- U500 insulin doses to be determined Outpt Follow Up-- [facility] endo Dr. Lee SUBJECTIVE/HPI: CHIEF COMPLAINT: Chief Complaint Patient presents with Chest Pain Vomiting The patient presented with chest pain and nausea. Pmhx Aka Bipolar disorder Cellulitis Covid Depression Dm2 severe insulin resistance Endometrial cancer Hlp Htn Schizophrenia Osteomylelits John Patient alert and oriented lying in bed. Patient reports nausea but tolerated lunch Blood sugars are uncontrolled at 180, 317, 251 Type of DM: 2 Onset of DM: 1991 Home DM Medication Regimen: u500 285 units meals DM control (last A1c/glucose data): Latest Reference Range & Units 11/23/20 03:51 07/20/22 00:00 02/09/23 10:22 HEMOGLOBIN A1C - [facility] <5.7 % of total Hgb 10.0 ! 10.1 ! (E) 10.1 (H) !: Data is abnormal (H): Data is abnormally high (E): External lab result Current therapy for diabetes in hospital: Clear liquid diet U500 insulin 285 units with meals Blood glucose 167- 247 Current appetite poor Glucose Date/Time Value Ref Range Status 06/30/2023 12:06 PM 251 (H) 70 - 100 mg/dL Final 06/30/2023 06:22 AM 317 (H) 70 - 100 mg/dL Final 06/29/2023 08:20 PM 180 (H) 70 - 100 mg/dL Final 06/29/2023 03:36 PM 338 (H) 70 - 100 mg/dL Final 06/29/2023 11:01 AM 244 (H) 70 - 100 mg/dL Final 06/29/2023 06:43 AM 234 (H) 70 - 100 mg/dL Final Review of Systems Constitutional: Negative for activity change, appetite change and fatigue. HENT: Negative for trouble swallowing and voice change. Gastrointestinal: Negative for abdominal pain, diarrhea, nausea and vomiting. Endocrine: Negative for cold intolerance and heat intolerance. Genitourinary: Negative for hematuria. Neurological: Negative for weakness. Psychiatric/Behavioral: Negative for sleep disturbance. The patient is not nervous/anxious. All other systems reviewed and are negative. OBJECTIVE: Vitals: 06/29/23 2019 06/30/23 0600 06/30/23 0742 06/30/23 0859 BP: (!) 175/93 (!) 197/111 (!) 160/90 BP Location: Right arm Patient Position: Lying Pulse: 96 99 Resp: 17 18 Temp: (!) 35.9 C (96.7 F) 36.2 C (97.1 F) TempSrc: Temporal Temporal SpO2: 94% 94% Weight: (!) 329 lb 9.6 oz (150 kg) Physical Exam Vitals reviewed. Constitutional: General: He is not in acute distress. Appearance: Normal appearance. He is not ill-appearing, toxic-appearing or diaphoretic. HENT: Head: Normocephalic and atraumatic. Nose: Nose normal. Mouth/Throat: Mouth: Mucous membranes are moist. Eyes: General: No scleral icterus. Right eye: No discharge. Left eye: No discharge. Conjunctiva/sclera: Conjunctivae normal. Pulmonary: Effort: Pulmonary effort is normal. No respiratory distress. Musculoskeletal: Cervical back: Normal range of motion. Right lower leg: No edema. Left lower leg: No edema. Skin: General: Skin is warm. Neurological: General: No focal deficit present. Mental Status: He is alert and oriented to person, place, and time. Psychiatric: Mood and Affect: Mood normal. Behavior: Behavior normal. 24 hour intake/output: Intake/Output Summary (Last 24 hours) at 06/30/2023 1308 Last data filed at 06/30/2023 0456 Gross per 24 hour Intake 702.5 ml Output 700 ml Net 2.5 ml Diet: Adult diet Regular; 3 carb choices (45 gm/meal) Medications (as per EMR): HomeMeds: Current Outpatient Medications Medication Instructions ARIPiprazole (Abilify) 10 MG tablet Every 24 hours aspirin 81 MG EC tablet 1 tablet, Oral, Daily atorvastatin (Lipitor) 10 MG tablet 1 tablet, Oral, Daily dilTIAZem CD (CARDIZEM CD) 180 mg, Oral, Daily dulaglutide (TRULICITY) 4.5 mg, SubCUTAneous, Weekly FLUoxetine (PROZAC) 40 mg, Oral, Daily gabapentin (NEURONTIN) 100 mg, Oral, 2 times daily insulin regular (HumuLIN R U-500 KWIKPEN) 500 UNIT/ML CONCENTRATED injection SubCUTAneous, 3 times daily, 285 units before breakfast/260 units before lunch/285 units before dinner Lactobacillus Acid-Pectin (Acidophilus/Rosemead Pectin) tablet 1 tablet, Oral, 2 times daily lisinopril 40 MG tablet Every 24 hours Loratadine 10 MG capsule Oral magnesium hydroxide (Milk of Magnesia Concentrate) 2400 MG/10ML suspension suspension Every 24 hours megestrol (Megace) 20 MG tablet 1 tablet, Oral, 2 times daily metoclopramide (REGLAN) 10 mg, Oral, 4 times daily metoprolol tartrate (Lopressor) 25 MG tablet 1 tablet, Oral, 2 times daily miconazole (Micotin) 2 % powder Topical, 2 times daily ondansetron (ZOFRAN) 8 mg, Oral pantoprazole (PROTONIX) 40 mg, Oral polyethylene glycol (PEG) 3350 (GLYCOLAX) 17 g, Oral, Daily potassium chloride CR (K-Tab) 20 MEQ ER tablet Every 24 hours Scheduled Meds:acidophilus lactobacillus, 1 capsule, Oral, BID ARIPiprazole, 10 mg, Oral, Daily aspirin, 81 mg, Oral, Daily atorvastatin, 10 mg, Oral, Daily cetirizine, 10 mg, Oral, Daily dilTIAZem CD, 180 mg, Oral, Daily dulaglutide, 4.5 mg, SubCUTAneous, Weekly enoxaparin, 40 mg, SubCUTAneous, Daily FLUoxetine, 40 mg, Oral, Daily gabapentin, 100 mg, Oral, BID insulin lispro, 0-18 Units, SubCUTAneous, TID WC insulin lispro, 45 Units, SubCUTAneous, TID WC insulin NPH, 85 Units, SubCUTAneous, q AM insulin NPH, 85 Units, SubCUTAneous, Nightly lisinopril, 40 mg, Oral, q24h megestrol, 20 mg, Oral, BID metoclopramide, 10 mg, Oral, 4x daily metoprolol tartrate, 25 mg, Oral, BID miconazole, , Topical, BID pantoprazole, 40 mg, Oral, qAM AC polyethylene glycol (PEG) 3350, 17 g, Oral, Daily potassium chloride, 20 mEq, Oral, q24h Continuous Infusions:sodium chloride, 75 mL/hr, Last Rate: 75 mL/hr (06/30/23 0511) PRN Meds:PRN medications: acetaminophen OR acetaminophen, dextrose, dextrose, glucagon (rDNA), glucose, nitroglycerin, [DISCONTINUED] ondansetron ODT OR ondansetron, polyethylene glycol (PEG) 3350, prochlorperazine Diagnostic Workup: I reviewed pertinent Laboratory results, Radiographic results, and Other Clinical Notes at the time of today's encounter. Labs: No components found for: LABA1C No components found for: EAG Lab Results Component Value Date NA 136 06/29/2023 K 5.0 06/29/2023 CL 103 06/29/2023 CO2 27 06/29/2023 BUN 23 06/29/2023 CREATININE 0.79 06/29/2023 GLUCOSE 193 (H) 06/29/2023 CALCIUM 8.3 (L) 06/29/2023 Lab Results Component Value Date CHLPL 125 08/29/2020 Lab Results Component Value Date TRIG 190 08/29/2020 Lab Results Component Value Date HDL 31 (A) 08/29/2020 Lab Results Component Value Date LDLCALC 56 08/29/2020 Lab Results Component Value Date VLDL 38 08/29/2020 No results found for: CHOLHDLRATIO No results found for: [id number] Lab Results Component Value Date TSH 2.356 11/26/2020 Radiology reportsas per the Radiologist Radiology: ECG 12 lead Result Date: 06/28/2023 Sinus tachycardia Nonspecific IVCD with LAD Left ventricular hypertrophy Minimal ST elevation, anterolateral leads Electronically Signed On 06-28-2023 5:20:13 EDT by Rosaura Mustafa CT chest angiogram w and/or wo IV contrast Result Date: 06/28/2023 Patient Name: WILL JACINTO : 1965 Exam Date/Time: 06/28/2023 03:49 Procedure: CT CHEST ANGIOGRAM W AND/OR WO IV CONTRAST Ordering Provider: MUSTAFA KATHRYN Reason For Exam: CP, history of DVT not on anticoagulation, 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 COMPARISON: None Technique: [address] images were obtained of the chest after the uneventful IV administration of 75 mL of Isovue-370. Image acquisition was timed for maximal opacification of the pulmonary arteries. Images were reformatted in coronal and sagittal projections. 3D reformats were generated concurrently by myself on a separate workstation to better visualize the gross vascular anatomy. Dose reduction was employed using automatic exposure control. FINDINGS: Pulmonary arteries: There is very suboptimal opacification of the pulmonary arteries. This study is essentially nondiagnostic for evaluation of segmental and subsegmental pulmonary emboli. Given these limitations, no large central filling defects are identified. Lungs: 7 mm nodule anterior lateral right middle lobe (4:139). No areas of consolidation. The tracheobronchial tree remains patent. Pleura: No pleural effusion Heart/Great vessels: The heart is normal in size with no pericardial effusion. The aorta and pulmonary arteries are normal in caliber. Mediastinum/Peggy: There are no enlarged mediastinal, hilar, or axillary lymph nodes. Thyroid and Esophagus: Normal Visualized Upper Abdomen: Normal Chest wall/Lower neck: Normal Bones: Multilevel flowing osteophytes consistent with DISH. Suboptimal opacification of the pulmonary arteries. This study is nondiagnostic for evaluation of segmental and subsegmental pulmonary embolus. Given these limitations, no large central filling defects identified. No areas of consolidation or effusion. 7 mm nodule right middle lobe. There are no prior studies for comparison. Per the 2017 [employer] society guidelines for incidentally discovered solitary pulmonary nodule (6-8mm): LOW RISK PATIENT: repeat scan in 6 to 12 months, then [address] in 18-24 months HIGH RISK PATIENT: repeat CT scan at 6-[address] in 18-24 months. 2017 - UPDATED [employer] GUIDELINES FOR MANAGEMENT OF SMALL PULMONARY NODULES DETECTED ON CT Note: Recommendations do not apply for lung cancer screening, patients with immunosuppression or with known cancer. Dimensions are average of long and short axis rounded to the millimeter SOLITARY NODULE: LOW RISK PATIENT <6mm - No follow up 6-8mm - 6-12 months, then consider 18-24 months >8mm - PET/CT, Bx or followup in 3 months SOLITARY NODULE: HIGH RISK PATIENT <6mm - Optional 6-12 months (suspicious morphology or upper lobe) 6-8mm - 6-12 months, then 18-24 months >8mm - PET/CT, Bx or followup in 3 months MULTIPLE NODULES: LOW RISK PATIENT (Use most suspicious nodule to manage guidelines) All <6mm - No follow up Any >6mm - 3-6 months, then consider 18-24 months MULTIPLE NODULES: HIGH RISK PATIENT (Use most suspicious nodule to manage guidelines) All <6mm - No follow up Any >6mm - 3-6 months, then 18-24 months SUBSOLID NODULE: SINGLE GROUND GLASS OPACITY <6mm - No follow up 6mm or greater - 6-12 months, then every 2 years until 5 years SUBSOLID NODULE: PART SOLID <6mm - No follow up 6mm or greater - 3-6 months, then if solid component <6mm and unchanged every year until 5 years MULTIPLE SUBSOLID NODULES: All <6mm - 3-6 months, then if stable 24 and 48 months 6mm or greater - 3-6 months, subsequent management based upon most suspicious nodule Report Dictated on Electronically Signed By: Chucho Stringer MD Electronically Signed Date/Time: 06/28/2023 4:37 AM EDT XR chest 1 view Result Date: 06/28/2023 Patient Name: WILL JACINTO : 1965 Exam Date/Time: 06/28/2023 03:08 Procedure: XR CHEST 1 VIEW Ordering Provider: MUSTAFA KATHRYN Reason For Exam: CHEST PAIN CLINICAL INDICATION: CHEST PAIN COMPARISON: 12/08/2020 TECHNIQUE: Single portable AP radiograph of the chest. FINDINGS: LUNGS/PLEURA:Lung volumes are low. No areas of consolidation or effusion. Trachea is midline. No pneumothorax. MEDIASTINUM:Heart size and mediastinal contours are normal. VASCULARITY: Normal BONES:Unremarkable SUPPORT LINES: None OTHER: Low lung volumes. No acute infiltrate or effusion. Report Dictated on Electronically Signed By: Chucho Stringer MD Electronically Signed Date/Time: 06/28/2023 3:08 AM EDT History/Other: 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 other toe(s), unspecified side (HCC) Anxiety disorder Bipolar 1 disorder (HCC) Blood circulation, collateral Cellulitis chronic L lower leg COVID 12/08/2021 Depression Diabetes mellitus (HCC) Type II, on insulin Disease of blood and blood forming organ Endometrial carcinoma (HCC) 11/25/2020 Endometrial hyperplasia Foot ulcer (HCC) Hx of blood clots RLE prior to amputation Hyperlipidemia Hypertension Lymphedema 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; no specimens WISDOM TOOTH EXTRACTION Allergy(ies): No Known Allergies Family History: No family history on file. Social History: Social History Tobacco Use Smoking status: Never Smokeless tobacco: Never Vaping Use Vaping Use: Never used Substance Use Topics Alcohol use: No Drug use: Never I spent 35 minutes with the pt which involved coordination of care, medical evaluation, review of records, and/or counseling of the pt regarding his/her condition/disease state/prognosis on the date of this note. Nutrition rescreen completed. Patient assigned a level 1. Department of Family Medicine Daily Progress Note Subjective Chief Complaint (required for billing): Chest pain Pt still complaining of a lot of nausea this am some abdominal pain ROS: Review of Systems Objective BP (!) 197/111 Pulse 99 Temp 36.2 C (97.1 F) (Temporal) Resp 18 Wt (!) 329 lb 9.6 oz (150 kg) SpO2 94% BMI 53.20 kg/m Physical Exam Pt is alert and oriented x 3 Heent wnl Heart regular Lungs ctab Abd somewhat distended Ext right AKA left with 1 + edema Labs Notable Labs: Current Medications Medication orders reviewed, see MAR Assessment/Plan Principal Problem: Chest pain Active Problems: Chest pain, unspecified type Chest pain Nausea and vomiting DM 2 Morbid obesity HPL HTN Plan Await GI recs Possibly back to snf tomorrow FEN:Adult diet Regular; 3 carb choices (45 gm/meal) GI prophylaxis: PPI ordered DVT prophylaxis: lovenox # Anticipated Discharge - Date - 1d - Location - Skilled Facility - Pending the following - NABIL HILL DO 06/30/23 9:10 AM Department of Internal Medicine Division of Endocrinology, Diabetes, & Metabolism Endocrinology Note Patient Name: Will Jacinto : 1965 AGE: 57 y.o. Room[facility]Bed: [facility] A Admission Date: 06/28/2023 Visit Date: 06/29/2023 Reason for Endocrine Consult: dm2 Provider/Team Requesting Consult: Dr. Hill PCP: Jared Guzman Outpt District Sales Coordinator: Dr. Jesus boone endo ASSESSMENT: DM 2 poor control Cheat pain nausea Pmhx Aka Bipolar disorder Cellulitis Covid Depression Dm2 severe insulin resistance Endometrial cancer Hlp Htn Schizophrenia Osteomylelits John PLAN: Patient had EGD this morning but did not receive insulin since last night. One time dose of NPH 40 units ordered to reduce blood sugars until scheduled doses resume tonight Given anticipated decreased diet Would decrease insulin doses from previous Use NPH 85 units am and bed Hlog 45 units meals High dose ss hlog meals not bed Convert to u500 on discharge Discussed with patient detection, monitoring, management, and prevention of hypoglycemia ICU goal <180 GMF goal <150 POCT ACHS Hypoglycemia per protocol Carb controlled diet ANTICIPATED ENDOCRINE HOME GOING RECOMMENDATIONS: Optimized for Discharge from Endocrine standpoint: No Home Going Endocrine Rx Recommendations-- U500 insulin doses to be determined Outpt Follow Up-- [facility] [place] endo Dr. Lee SUBJECTIVE/HPI: CHIEF COMPLAINT: Chief Complaint Patient presents with Chest Pain Vomiting The patient presented with chest pain and nausea. Pmhx Aka Bipolar disorder Cellulitis Covid Depression Dm2 severe insulin resistance Endometrial cancer Hlp Htn Schizophrenia Osteomylelits John Patient had EGD this morning but did not receive insulin since last night. One time dose of NPH given to reduce blood sugars until scheduled doses resume tonight Type of DM: 2 Onset of DM: 1991 Home DM Medication Regimen: u500 285 units meals DM control (last A1c/glucose data): Latest Reference Range & Units 11/23/20 03:51 07/20/22 00:00 02/09/23 10:22 HEMOGLOBIN A1C - [facility] <5.7 % of total Hgb 10.0 ! 10.1 ! (E) 10.1 (H) !: Data is abnormal (H): Data is abnormally high (E): External lab result Current therapy for diabetes in hospital: Clear liquid diet U500 insulin 285 units with meals Blood glucose 167- 247 Current appetite poor Glucose Date/Time Value Ref Range Status 06/29/2023 11:01 AM 244 (H) 70 - 100 mg/dL Final 06/29/2023 06:43 AM 234 (H) 70 - 100 mg/dL Final 06/28/2023 07:43 PM 223 (H) 70 - 100 mg/dL Final 06/28/2023 04:52 PM 270 (H) 70 - 100 mg/dL Final 06/28/2023 11:23 AM 253 (H) 70 - 100 mg/dL Final 06/28/2023 06:15 AM 247 (H) 70 - 100 mg/dL Final Review of Systems Constitutional: Negative for activity change, appetite change and fatigue. HENT: Negative for trouble swallowing and voice change. Gastrointestinal: Negative for abdominal pain, diarrhea, nausea and vomiting. Endocrine: Negative for cold intolerance and heat intolerance. Genitourinary: Negative for hematuria. Neurological: Negative for weakness. Psychiatric/Behavioral: Negative for sleep disturbance. The patient is not nervous/anxious. All other systems reviewed and are negative. OBJECTIVE: Vitals: 06/29/23 1029 06/29/23 1038 06/29/23 1048 06/29/23 1100 BP: 139/74 (!) 146/68 (!) 143/71 (!) 148/81 BP Location: Left arm Patient Position: Lying Pulse: 92 95 93 92 Resp: 20 19 20 18 Temp: 36.3 C (97.4 F) 36.3 C (97.3 F) TempSrc: Temporal Temporal SpO2: 95% 97% 97% 94% Weight: Physical Exam Vitals reviewed. Constitutional: General: He is not in acute distress. Appearance: Normal appearance. He is not ill-appearing, toxic-appearing or diaphoretic. HENT: Head: Normocephalic and atraumatic. Nose: Nose normal. Mouth/Throat: Mouth: Mucous membranes are moist. Eyes: General: No scleral icterus. Right eye: No discharge. Left eye: No discharge. Conjunctiva/sclera: Conjunctivae normal. Pulmonary: Effort: Pulmonary effort is normal. No respiratory distress. Musculoskeletal: Cervical back: Normal range of motion. Right lower leg: No edema. Left lower leg: No edema. Skin: General: Skin is warm. Neurological: General: No focal deficit present. Mental Status: He is alert and oriented to person, place, and time. Psychiatric: Mood and Affect: Mood normal. Behavior: Behavior normal. 24 hour intake/output: Intake/Output Summary (Last 24 hours) at 06/29/2023 1238 Last data filed at 06/29/2023 1050 Gross per 24 hour Intake 623.75 ml Output -- Net 623.75 ml Diet: Adult diet Regular; 3 carb choices (45 gm/meal) Medications (as per EMR): HomeMeds: Current Outpatient Medications Medication Instructions ARIPiprazole (Abilify) 10 MG tablet Every 24 hours aspirin 81 MG EC tablet 1 tablet, Oral, Daily atorvastatin (Lipitor) 10 MG tablet 1 tablet, Oral, Daily dilTIAZem CD (CARDIZEM CD) 180 mg, Oral, Daily dulaglutide (TRULICITY) 4.5 mg, SubCUTAneous, Weekly FLUoxetine (PROZAC) 40 mg, Oral, Daily gabapentin (NEURONTIN) 100 mg, Oral, 2 times daily insulin regular (HumuLIN R U-500 KWIKPEN) 500 UNIT/ML CONCENTRATED injection SubCUTAneous, 3 times daily, 285 units before breakfast/260 units before lunch/285 units before dinner Lactobacillus Acid-Pectin (Acidophilus/[place] Pectin) tablet 1 tablet, Oral, 2 times daily lisinopril 40 MG tablet Every 24 hours Loratadine 10 MG capsule Oral magnesium hydroxide (Milk of Magnesia Concentrate) 2400 MG/10ML suspension suspension Every 24 hours megestrol (Megace) 20 MG tablet 1 tablet, Oral, 2 times daily metoclopramide (REGLAN) 10 mg, Oral, 4 times daily metoprolol tartrate (Lopressor) 25 MG tablet 1 tablet, Oral, 2 times daily miconazole (Micotin) 2 % powder Topical, 2 times daily ondansetron (ZOFRAN) 8 mg, Oral pantoprazole (PROTONIX) 40 mg, Oral polyethylene glycol (PEG) 3350 (GLYCOLAX) 17 g, Oral, Daily potassium chloride CR (K-Tab) 20 MEQ ER tablet Every 24 hours Scheduled Meds:acidophilus lactobacillus, 1 capsule, Oral, BID ARIPiprazole, 10 mg, Oral, Daily aspirin, 81 mg, Oral, Daily atorvastatin, 10 mg, Oral, Daily cetirizine, 10 mg, Oral, Daily dilTIAZem CD, 180 mg, Oral, Daily dulaglutide, 4.5 mg, SubCUTAneous, Weekly enoxaparin, 40 mg, SubCUTAneous, Daily FLUoxetine, 40 mg, Oral, Daily gabapentin, 100 mg, Oral, BID insulin lispro, 0-18 Units, SubCUTAneous, TID WC insulin lispro, 45 Units, SubCUTAneous, TID WC insulin NPH, 85 Units, SubCUTAneous, q AM insulin NPH, 85 Units, SubCUTAneous, Nightly lisinopril, 40 mg, Oral, q24h megestrol, 20 mg, Oral, BID metoclopramide, 10 mg, Oral, 4x daily metoprolol tartrate, 25 mg, Oral, BID miconazole, , Topical, BID pantoprazole, 40 mg, Oral, qAM AC polyethylene glycol (PEG) 3350, 17 g, Oral, Daily potassium chloride, 20 mEq, Oral, q24h Continuous Infusions:sodium chloride, 75 mL/hr, Last Rate: 75 mL/hr (06/28/23 1453) PRN Meds:PRN medications: acetaminophen OR acetaminophen, dextrose, dextrose, glucagon (rDNA), glucose, nitroglycerin, ondansetron ODT OR ondansetron, polyethylene glycol (PEG) 3350 Diagnostic Workup: I reviewed pertinent Laboratory results, Radiographic results, and Other Clinical Notes at the time of today's encounter. Labs: No components found for: LABA1C No components found for: EAG Lab Results Component Value Date NA 136 06/29/2023 K 5.0 06/29/2023 CL 103 06/29/2023 CO2 27 06/29/2023 BUN 23 06/29/2023 CREATININE 0.79 06/29/2023 GLUCOSE 193 (H) 06/29/2023 CALCIUM 8.3 (L) 06/29/2023 Lab Results Component Value Date CHLPL 125 08/29/2020 Lab Results Component Value Date TRIG 190 08/29/2020 Lab Results Component Value Date HDL 31 (A) 08/29/2020 Lab Results Component Value Date LDLCALC 56 08/29/2020 Lab Results Component Value Date VLDL 38 08/29/2020 No results found for: CHOLHDLRATIO No results found for: [id number] Lab Results Component Value Date TSH 2.356 11/26/2020 Radiology reportsas per the Radiologist Radiology: ECG 12 lead Result Date: 06/28/2023 Sinus tachycardia Nonspecific IVCD with LAD Left ventricular hypertrophy Minimal ST elevation, anterolateral leads Electronically Signed On 06-28-2023 5:20:13 EDT by Rosaura Mustafa CT chest angiogram w and/or wo IV contrast Result Date: 06/28/2023 [facility] 1965 [id number] Exam Date/Time: 06/28/2023 03:49 Procedure: CT CHEST ANGIOGRAM W AND/OR WO IV CONTRAST Ordering Provider: MUSTAFA KATHRYN Reason For Exam: CP, history of DVT not on anticoagulation, 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 COMPARISON: None Technique: [address] images were obtained of the chest after the uneventful IV administration of 75 mL of Isovue-370. Image acquisition was timed for maximal opacification of the pulmonary arteries. Images were reformatted in coronal and sagittal projections. 3D reformats were generated concurrently by myself on a separate workstation to better visualize the gross vascular anatomy. Dose reduction was employed using automatic exposure control. FINDINGS: Pulmonary arteries: There is very suboptimal opacification of the pulmonary arteries. This study is essentially nondiagnostic for evaluation of segmental and subsegmental pulmonary emboli. Given these limitations, no large central filling defects are identified. Lungs: 7 mm nodule anterior lateral right middle lobe (4:139). No areas of consolidation. The tracheobronchial tree remains patent. Pleura: No pleural effusion Heart/Great vessels: The heart is normal in size with no pericardial effusion. The aorta and pulmonary arteries are normal in caliber. Mediastinum/Peggy: There are no enlarged mediastinal, hilar, or axillary lymph nodes. Thyroid and Esophagus: Normal Visualized Upper Abdomen: Normal Chest wall/Lower neck: Normal Bones: Multilevel flowing osteophytes consistent with DISH. Suboptimal opacification of the pulmonary arteries. This study is nondiagnostic for evaluation of segmental and subsegmental pulmonary embolus. Given these limitations, no large central filling defects identified. No areas of consolidation or effusion. 7 mm nodule right middle lobe. There are no prior studies for comparison. Per the 2017 [employer] society guidelines for incidentally discovered solitary pulmonary nodule (6-8mm): LOW RISK PATIENT: repeat scan in 6 to 12 months, then [address] in 18-24 months HIGH RISK PATIENT: repeat CT scan at 6-[address] in 18-24 months. 2017 - UPDATED [employer] GUIDELINES FOR MANAGEMENT OF SMALL PULMONARY NODULES DETECTED ON CT Note: Recommendations do not apply for lung cancer screening, patients with immunosuppression or with known cancer. Dimensions are average of long and short axis rounded to the millimeter SOLITARY NODULE: LOW RISK PATIENT <6mm - No follow up 6-8mm - 6-12 months, then consider 18-24 months >8mm - PET/CT, Bx or followup in 3 months SOLITARY NODULE: HIGH RISK PATIENT <6mm - Optional 6-12 months (suspicious morphology or upper lobe) 6-8mm - 6-12 months, then 18-24 months >8mm - PET/CT, Bx or followup in 3 months MULTIPLE NODULES: LOW RISK PATIENT (Use most suspicious nodule to manage guidelines) All <6mm - No follow up Any >6mm - 3-6 months, then consider 18-24 months MULTIPLE NODULES: HIGH RISK PATIENT (Use most suspicious nodule to manage guidelines) All <6mm - No follow up Any >6mm - 3-6 months, then 18-24 months SUBSOLID NODULE: SINGLE GROUND GLASS OPACITY <6mm - No follow up 6mm or greater - 6-12 months, then every 2 years until 5 years SUBSOLID NODULE: PART SOLID <6mm - No follow up 6mm or greater - 3-6 months, then if solid component <6mm and unchanged every year until 5 years MULTIPLE SUBSOLID NODULES: All <6mm - 3-6 months, then if stable 24 and 48 months 6mm or greater - 3-6 months, subsequent management based upon most suspicious nodule Report Dictated on Electronically Signed By: Chucho Stringer MD Electronically Signed Date/Time: 06/28/2023 4:37 AM EDT XR chest 1 view Result Date: 06/28/2023 Patient Name: WILL JACINTO : 1965 [facility]#: [id number] Exam Date/Time: 06/28/2023 03:08 Procedure: XR CHEST 1 VIEW Ordering Provider: MUSTAFA KATHRYN Reason For Exam: CHEST PAIN CLINICAL INDICATION: CHEST PAIN COMPARISON: 12/08/2020 TECHNIQUE: Single portable AP radiograph of the chest. FINDINGS: LUNGS/PLEURA:Lung volumes are low. No areas of consolidation or effusion. Trachea is midline. No pneumothorax. MEDIASTINUM:Heart size and mediastinal contours are normal. VASCULARITY: Normal BONES:Unremarkable SUPPORT LINES: None OTHER: Low lung volumes. No acute infiltrate or effusion. Report Dictated on Electronically Signed By: Chucho Stringer MD Electronically Signed Date/Time: 06/28/2023 3:08 AM EDT History/Other: 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 other toe(s), unspecified side (HCC) Anxiety disorder Bipolar 1 disorder (HCC) Blood circulation, collateral Cellulitis chronic L lower leg COVID 12/08/2021 Depression Diabetes mellitus (HCC) Type II, on insulin Disease of blood and blood forming organ Endometrial carcinoma (HCC) 11/25/2020 Endometrial hyperplasia Foot ulcer (HCC) Hx of blood clots RLE prior to amputation Hyperlipidemia Hypertension Lymphedema 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; no specimens WISDOM TOOTH EXTRACTION Allergy(ies): No Known Allergies Family History: No family history on file. Social History: Social History Tobacco Use Smoking status: Never Smokeless tobacco: Never Vaping Use Vaping Use: Never used Substance Use Topics Alcohol use: No Drug use: Never I spent 35 minutes with the pt which involved coordination of care, medical evaluation, review of records, and/or counseling of the pt regarding his/her condition/disease state/prognosis on the date of this note. Department of Family Medicine Daily Progress Note Subjective Chief Complaint (required for billing): Chest pain Pt going down for EGD this am ROS: Review of Systems Objective BP (!) 155/73 (BP Location: Left arm, Patient Position: Lying) Pulse 79 Temp 36.4 C (97.6 F) (Temporal) Resp 18 SpO2 91% Physical Exam Labs Notable Labs: Pt is alert and oriented x 3 Heent wnl Heart regular Lungs ctab Abd benign Ext right AKA left with 1 + edema Current Medications Medication orders reviewed, see MAR Assessment/Plan Principal Problem: Chest pain Active Problems: Chest pain, unspecified type Chest pain Nausea and vomiting DM 2 Morbid obesity HPL HTN Plan EGD this am FEN:NPO diet GI prophylaxis: PPI ordered DVT prophylaxis: lovenox # Anticipated Discharge - Date - 2 d - Location - [facility] Facility - Pending the following - NABIL HILL DO 06/29/23 9:10 AM documented in this encounter [facility] 06-30-2023 Note Sinus rhythm Abnormal R-wave progression, late transition Left ventricular hypertrophy Electronically Signed On 06-30-2023 12:43:24 EDT by Art FIGUEROA 06-30-2023 Note Sinus rhythm Abnormal R-wave progression, late transition Left ventricular hypertrophy Electronically Signed On 06-30-2023 12:43:24 EDT by Art FIGUEROA 06-29-2023 Plan of care note The patient is Moderately Stable - Low risk of patient condition declining or worsening The patient's goals for the shift include no nausea The clinical goals for the shift include manage nausea/decrease anxiety Over the shift, the patient did not make progress toward the following goals. Barriers to progression include elevated levels of anxiety. Recommendations to address these barriers include implement nonpharmacological interventions to manage anxiety. [facility] 06-29-2023 Note Formatting of this n ote is different from the original. Images from the original note were not included. Care Management Progress Note Chart reviewed. Patient remains on 2 east with chest pain. HX transgender F-M, Schizophrenia, Bipolar. R BKA, is wheelchair bound. Cardiology and GI following. Plan for EGD today. Wheelchair bound. DC plan: [facility] [place], bed hold. No authorization needed. Discharge Milestones and Delays Expected Date/Time: 06/30/[address] discharge order Complete med reconciliation Case mgmt discharge readiness Clinical Stability Diagnsotic Workup Expected Discharge History Expected Date/Time Set By Reviewed At 06/30/2023 Nabil Hill, DO 06/28/2023 8:48 AM 06/29/2023 Herber Armando RN 06/28/2023 7:51 AM 06/29/2023 Rosaura Mustafa, 06/28/2023 6:19 AM 06/29/2023 Rosaura Mustafa DO 06/28/2023 5:11 AM Length of Stay (Days): 1 GMLOS: 1.7 [facility] 06-29-2023 Note Formatting of this n ote is different from the original. Images from the original note were not included. Care Management Progress Note Chart reviewed. Patient remains on with chest pain. HX transgender F-M, Schizophrenia, Bipolar. R BKA, is wheelchair bound. Cardiology and GI following. Plan for EGD today. Wheelchair bound. DC plan: [facility] [place], bed hold. No authorization needed. Discharge Milestones and Delays Expected Date/Time: 06/30/[address] discharge order Complete med reconciliation Case mgmt discharge readiness Clinical Stability Diagnsotic Workup Expected Discharge History Expected Date/Time Set By Reviewed At 06/30/2023 Nabil Hill, DO 06/28/2023 8:48 AM 06/29/2023 Herber Armando RN 06/28/2023 7:51 AM 06/29/2023 Rosaura Mustafa DO 06/28/2023 6:19 AM 06/29/2023 Rosaura Mustafa DO 06/28/2023 5:11 AM Length of Stay (Days): 1 GMLOS: 1.7 [facility] 06-29-2023 Procedure anesthe ben Narrative Procedure Name Responsible Anesthesiologist Anesthesia Start Time Anesthesia Stop Time EGD DIAGNOSTIC Art Palmer MD 06/29/23 0954 06/29 1019 Events Date Time Event Comment 06/29/2023 0942 0954 An Start 0954 An Start Data 0954 Start Auxiliary O2 0954 In Room 0955 An Induction The patient was reevaluated immediately before moderate or deep sedation use and before anesthesia induction. 1019 an stop data 1019 An Stop 1019 Out of Room Meds Name Total lidocaine PF (Xylocaine-MPF) local injec tion 2 % 100 mg propofol (Diprivan) injection 10 mg/mL 2 00 mg * Agents Name N2O Air * Blood No blood administrations on file. Lines, Drains, and Airways Type Details Placement Removal Peripheral IV Placement Date: 06/09 11/30; Placement Time: 025; Catheter Size: 20 G; Orientation: Anterior, Right; Location: Forearm; Site Prep: Chlorhexidine ; Local Anesth: None 06/28/23 0250 by Melissa Sosa RN documented in this encounter [place] [id number] Note* Perioperative Nursing Note - Usman Ulrich RN - 06/29/2023 10:54 AM EDT Report called to Herber Hawk [place] [id number] Note* Perioperative Nursing Note - Usman Ulrich RN - 06/29/2023 10:54 AM EDT Report called to Herber Hawk [place] [id number] Note* Perioperative Nursing Note - Usman Ulrich RN - 06/29/2023 10:40 AM EDT POST ENDOSCOPY PROCEDURE TRANSFER REPORT Procedure completed: EGD Findings: WDL Specimens obtained: None Medications administered: 200mg Propofol per MEDICAL BILLING AND CODING SPECIALIST Additional Info: Adult diet regular; 3 carb choices (45gm/meal); see Dr Sibley' orders For additional Questions please call Endoscopy at [phone]. Thank You! [place] [id number] Note* Perioperative Nursing Note - Usman Ulrich RN - 06/29/2023 10:40 AM EDT POST ENDOSCOPY PROCEDURE TRANSFER REPORT Procedure completed: EGD Findings: WDL Specimens obtained: None Medications administered: 200mg Propofol per MEDICAL BILLING AND CODING SPECIALIST Additional Info: Adult diet regular; 3 carb choices (45gm/meal); see Dr Sibley' orders For additional Questions please call Endoscopy at [phone]. Thank You! [id number] Note* Perioperative Nursing Note - Usman Ulrich RN - 06/29/2023 10:[address] Sibley in room talking to patient [id number]* Perioperative Nursing Note - Usman Ulrich RN - 06/29/2023 10:[address] Sibley in room talking to patient [place] [id number] Note* Addendum Note - JEREMY Naranjo CRNA - 06/29/2023 10:21 AM EDT Addendum created 06/29/23 1021 by JEREMY Naranjo CRNA Attestation recorded in Intraprocedure, Intraprocedure Attestations filed [id number] Miscellaneous Notes* Addendum Note - JEREMY Naranjo CRNA - 06/29/2023 10:21 AM EDT Addendum created 06/29/23 1021 by JEREMY Naranjo CRNA Attestation recorded in Intraprocedure, Intraprocedure Attestations filed * Anesthesia Discharge Note - JEREMY Naranjo CRNA - 06/29/2023 10:20 AM EDT Patient: Maria Luisa Jacinto Procedure Summary Date: 06/29/23 Room / Location: [place] [address] / [facility] Anesthesia Start: 953 Anesthesia Stop: 1018 Procedure: EGD DIAGNOSTIC Diagnosis: Nausea and vomiting, unspecified vomiting type (Nausea and vomiting, unspecified vomiting type [R11.2]) Providers: Sergio Sibley DO Responsible Provider: Anesthesia Type: TIVA ASA Status: 3 Anesthesia Type: TIVA Vitals Value Taken Time BP 153/67 08/22/23 1019 Temp 36.4 C (97.5 F) 06/29/23 1019 Pulse 101 06/29/23 1019 Resp 21 06/29/23 1019 SpO2 99 % 06/29/23 1019 Anesthesia Post Evaluation Patient location during evaluation: PACU Patient participation: complete - patient participated Level of consciousness: awake and alert Pain management: satisfactory to patient Airway patency: patent Dental Injury: no Cardiovascular status: acceptable, blood pressure returned to baseline and hemodynamically stable Respiratory status: acceptable and spontaneous ventilation Hydration status: euvolemic Nausea/Vomiting: controlled No notable events documented. Patient can be discharged once all PACU criteria has been met. documented in this [facility]08-22-2023 Note* Anesthesia Discharge Note - JEREMY Naranjo CRNA - 06/29/2023 10:20 AM EDT Patient: Maria Luisa Jacinto Procedure Summary Date: 06/29/23 Room / Location: [address] Gastroenterology Anesthesia Start: 953 Anesthesia Stop: 1019 Procedure: EGD DIAGNOSTIC Diagnosis: Nausea and vomiting, unspecified vomiting type (Nausea and vomiting, unspecified vomiting type [R11.2]) Providers: Sergio Sibley DO Responsible Provider: Anesthesia Type: TIVA ASA Status: 3 Anesthesia Type: TIVA Vitals Value Taken Time BP 153/67 06/29/23 1019 Temp 36.4 C (97.5 F) 06/29/23 1019 Pulse 101 06/29/23 1019 Resp 21 06/29/23 1019 SpO2 99 % 06/29/23 1019 Anesthesia Post Evaluation Patient location during evaluation: PACU Patient participation: complete - patient participated Level of consciousness: awake and alert Pain management: satisfactory to patient Airway patency: patent Dental Injury: no Cardiovascular status: acceptable, blood pressure returned to baseline and hemodynamically stable Respiratory status: acceptable and spontaneous ventilation Hydration status: euvolemic Nausea/Vomiting: controlled No notable events documented. Patient can be discharged once all PACU criteria has been met. [id number] Anesthesiology Postoperative evaluation and management note* Anesthesia Postprocedure Evaluation - JEREMY Naranjo CRNA - 06/29/2023 10:20 AM EDT Patient: Maria Luisa Jacinto Procedure Summary Date: 06/29/23 Room / Location: [place] [address] / [facility] Anesthesia Start: 953 Anesthesia Stop: 1018 Procedure: EGD DIAGNOSTIC Diagnosis: Nausea and vomiting, unspecified vomiting type (Nausea and vomiting, unspecified vomiting type [R11.2]) Providers: Sergio Sibley DO Responsible Provider: Anesthesia Type: TIVA ASA Status: 3 Anesthesia Type: TIVA Vitals Value Taken Time BP 153/67 06/29/23 1019 Temp 36.4 C (97.5 F) 06/29/23 1019 Pulse 101 06/29/23 1019 Resp 21 06/29/23 1019 SpO2 99 % 06/29/23 1019 Anesthesia Post Evaluation Patient location during evaluation: PACU Patient participation: complete - patient participated Level of consciousness: awake and alert Pain management: satisfactory to patient Multimodal analgesia pain management approach Airway patency: patent Two or more strategies used to mitigate risk of obstructive sleep apnea Cardiovascular status: acceptable and hemodynamically stable Respiratory status: acceptable Hydration status: acceptable No notable events documented. MIPS #430 PONV Patient did not receive an inhalational anesthetic (XX430) MIPS # 424 Perioperative Temperature Management Anesthesia time was less than 60 minutes (4256F) MIPS #477 Multimodal Pain Management Not emergent case MIPS #404 Anesthesiology Smoking Abstinence The patient is not a current smoker (e.g. cigarette, cigar, pipe, e- cigarette/vaping/marijuana) If no stop here (G9644) I completed my handoff to the receiving clinician during which we: 1. Identified the patient 2. Identified the responsible provider 3. Reviewed the pertinent medical history 4. Discussed the surgical course 5. Reviewed intra-op anesthesia management and issues during anesthesia 6. Set expectations for post-procedure period 7. Allowed opportunity for questions and acknowledgement of understanding. [id number] Surgical operation note* Anesthesia Postprocedure Evaluation - JEREMY Naranjo CRNA - 06/29/2023 10:20 AM EDT Patient: Maria Luisa Jacinto Procedure Summary Date: 06/29/23 Room / Location: [facility] / [facility] Anesthesia Start: 953 Anesthesia Stop: 1019 Procedure: EGD DIAGNOSTIC Diagnosis: Nausea and vomiting, unspecified vomiting type (Nausea and vomiting, unspecified vomiting type [R11.2]) Providers: Sergio Sibley DO Responsible Provider: Anesthesia Type: TIVA ASA Status: 3 Anesthesia Type: TIVA Vitals Value Taken Time BP 153/67 06/29/23 1019 Temp 36.4 C (97.5 F) 06/29/23 1019 Pulse 101 06/29/23 1019 Resp 21 06/29/23 1019 SpO2 99 % 06/29/23 1019 Anesthesia Post Evaluation Patient location during evaluation: PACU Patient participation: complete - patient participated Level of consciousness: awake and alert Pain management: satisfactory to patient Multimodal analgesia pain management approach Airway patency: patent Two or more strategies used to mitigate risk of obstructive sleep apnea Cardiovascular status: acceptable and hemodynamically stable Respiratory status: acceptable Hydration status: acceptable No notable events documented. MIPS #430 PONV Patient did not receive an inhalational anesthetic (XX430) MIPS # 424 Perioperative Temperature Management Anesthesia time was less than 60 minutes (4256F) MIPS #477 Multimodal Pain Management Not emergent case MIPS #404 Anesthesiology Smoking Abstinence The patient is not a current smoker (e.g. cigarette, cigar, pipe, e- cigarette/vaping/marijuana) If no stop here (G9644) I completed my handoff to the receiving clinician during which we: 1. Identified the patient 2. Identified the responsible provider 3. Reviewed the pertinent medical history 4. Discussed the surgical course 5. Reviewed intra-op anesthesia management and issues during anesthesia 6. Set expectations for post-procedure period 7. Allowed opportunity for questions and acknowledgement of understanding. * Anesthesia Preprocedure Evaluation - JEREMY Naranjo CRNA - 06/29/2023 9:41 AM EDT Patient: Maria Luisa Jacinto Procedure Information Date/Time: 06/29/23 0900 Procedure: EGD DIAGNOSTIC Location: [place] [address] / [facility] Providers: Sergio Sibley, DO Relevant Problems Cardio (+) Hyperlipidemia (+) Hypertension (+) 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 (HCC) Endo (+) Type 2 diabetes mellitus with hyperglycemia, with long-term current use of insulin ([facility] ([facility]) (+) Uncontrolled type 2 diabetes mellitus with complication Other (+) Chronic osteomyelitis ([facility]) ([facility]) (+) Endometrial carcinoma ([facility]) Past Medical History: Past Medical History: No date: Abnormal uterine bleeding (AUB) Comment: SCHEDULED FOR THE SURGERY ON 05/16/2019 No date: Above knee amputation of right lower extremity ([facility]) No date: Acquired absence of other toe(s), unspecified side ([facility]) No date: Anxiety disorder No date: Bipolar 1 disorder ([facility]) No date: Blood circulation, collateral No date: Cellulitis Comment: chronic L lower leg 12/08/2021: COVID No date: Depression No date: Diabetes mellitus ([facility]) Comment: Type II, on insulin No date: Disease of blood and blood forming organ 11/25/2020: Endometrial carcinoma ([facility]) No date: Endometrial hyperplasia No date: Foot ulcer ([facility]) No date: Hx of blood clots Comment: RLE prior to amputation No date: Hyperlipidemia No date: Hypertension No date: Lymphedema No date: 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, RLE No date: Morbidly obese ([facility]) No date: Muscle weakness No date: Osteomyelitis ([facility]) 2019: Osteomyelitis ([facility]) Comment: RLE No date: Other lack of coordination No date: Other specified soft tissue disorders No date: Other symbolic dysfunctions No date: Schizophrenia ([facility]) No date: Sleep apnea Comment: no CPAP No date: Venous insufficiency Past Surgical History: Past Surgical History: 09/09/2018: ABCESS DRAINAGE; Right Comment: FOOT; [facility] 09/19/2020: COLONOSCOPY Comment: EGD by Dr Hyde 05/18/2019: DILATION AND CURETTAGE OF UTERUS 12/23/2021: HYSTEROSCOPY 06/16/2019: LEG AMPUTATION THROUGH KNEE; Right No date: WISDOM TOOTH EXTRACTION Social History: TOBACCO: reports that he has never smoked. He has never used smokeless tobacco. ETOH: reports no history of alcohol use. Social History Substance and Sexual Activity Drug Use Never Family History: No family history on file. Screening: unknown Clinical information reviewed: Allergies Physical Exam Airway Mallampati: III TM distance: <3 FB Neck ROM: limited Mouth Open: limitedendotracheal tube not in place Cardiovascular Dental (+) Poor, Loose, Missing, chipped Pulmonary Abdominal Anesthesia Plan patient is NPO appropriate Any family history or previous problems with anesthesia no ASA 3 TIVA Any family history or previous problems with anesthesia no The patient is not a current smoker. Anesthetic plan and risks discussed with patient. Use of blood products discussed with who consented to blood products. JOHN Screening Labs: Lab Results Component Value Date WBC 9.2 06/29/2023 HGB 10.8 (L) 06/29/2023 HCT 32.6 06/29/2023 MCV 82.9 06/29/2023 PLT 361 06/29/2023 Lab Results Component Value Date NA 136 06/29/2023 K 5.0 06/29/2023 CL 103 06/29/2023 CO2 27 06/29/2023 BUN 23 06/29/2023 CREATININE 0.79 06/29/2023 GLUCOSE 193 (H) 06/29/2023 CALCIUM 8.3 (L) 06/29/2023 PROT 6.3 06/29/2023 ALKPHOS 121 06/29/2023 AST 32 06/29/2023 ALT 41 06/29/2023 EGFR 87.9 06/29/2023 GLOB 2.7 02/09/2023 Pain Score: 3 No echocardiogram results found for the past 14 days 06/28/23 ECG 12-LEAD (Preliminary) This result has not been signed. Information might be incomplete. Impression Sinus rhythm Abnormal R-wave progression, late transition Left ventricular hypertrophy Compared to ECG 06/28/2023 02:27:42 Sinus tachycardia no longer present Intraventricular conduction delay no longer present ST (T wave) deviation no longer present documented in this [facility]08-22-2023 Nurse Note* Usman Ulrich RN - 06/29/2023 10:18 AM EDT No specimens [id number] Nurse Note* Usman Ulrich RN - 06/29/2023 10:18 AM EDT No specimens documented in this [facility]08-22-2023 Anesthesiology Preoperative evaluation and management note* Anesthesia Preprocedure Evaluation - JEREMY Naranjo CRNA - 06/29/2023 9:41 AM EDT Patient: Maria Luisa Jacinto Procedure Information Date/Time: 06/29/23 09 Procedure: EGD DIAGNOSTIC Location: [place] [address] / [facility] Providers: Sergio Sibley, DO Relevant Problems Cardio (+) Hyperlipidemia (+) Hypertension (+) 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 (HCC) Endo (+) Type 2 diabetes mellitus with hyperglycemia, with long-term current use of insulin ([facility]) ([facility]) (+) Uncontrolled type 2 diabetes mellitus with complication Other (+) Chronic osteomyelitis (CMS/HCC) ([facility]) (+) Endometrial carcinoma ([facility]) Past Medical History: Past Medical History: No date: Abnormal uterine bleeding (AUB) Comment: SCHEDULED FOR THE SURGERY ON 05/16/2019 No date: Above knee amputation of right lower extremity ([facility]) No date: Acquired absence of other toe(s), unspecified side ([facility]) No date: Anxiety disorder No date: Bipolar 1 disorder ([facility]) No date: Blood circulation, collateral No date: Cellulitis Comment: chronic L lower leg 12/08/2021: COVID No date: Depression No date: Diabetes mellitus ([facility]) Comment: Type II, on insulin No date: Disease of blood and blood forming organ 11/25/2020: Endometrial carcinoma ([facility]) No date: Endometrial hyperplasia No date: Foot ulcer ([facility]) No date: Hx of blood clots Comment: RLE prior to amputation No date: Hyperlipidemia No date: Hypertension No date: Lymphedema No date: 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, RLE No date: Morbidly obese ([facility]) No date: Muscle weakness No date: Osteomyelitis ([facility]) 2019: Osteomyelitis ([facility]) Comment: RLE No date: Other lack of coordination No date: Other specified soft tissue disorders No date: Other symbolic dysfunctions No date: Schizophrenia ([facility]) No date: Sleep apnea Comment: no CPAP No date: Venous insufficiency Past Surgical History: Past Surgical History: 09/09/2018: ABCESS DRAINAGE; Right Comment: FOOT; [facility] 09/19/2020: COLONOSCOPY Comment: EGD by Dr Hyde 05/18/2019: DILATION AND CURETTAGE OF UTERUS 12/23/2021: HYSTEROSCOPY 06/16/2019: LEG AMPUTATION THROUGH KNEE; Right No date: WISDOM TOOTH EXTRACTION Social History: TOBACCO: reports that he has never smoked. He has never used smokeless tobacco. ETOH: reports no history of alcohol use. Social History Substance and Sexual Activity Drug Use Never Family History: No family history on file. Screening: unknown Clinical information reviewed: Allergies Physical Exam Airway Mallampati: III TM distance: <3 FB Neck ROM: limited Mouth Open: limitedendotracheal tube not in place Cardiovascular Dental (+) Poor, Loose, Missing, chipped Pulmonary Abdominal Anesthesia Plan patient is NPO appropriate Any family history or previous problems with anesthesia no ASA 3 TIVA Any family history or previous problems with anesthesia no The patient is not a current smoker. Anesthetic plan and risks discussed with patient. Use of blood products discussed with who consented to blood products. JOHN Screening Labs: Lab Results Component Value Date WBC 9.2 06/29/2023 HGB 10.8 (L) 06/29/2023 HCT 32.6 06/29/2023 MCV 82.9 06/29/2023 PLT 361 06/29/2023 Lab Results Component Value Date NA 136 06/29/2023 K 5.0 06/29/2023 CL 103 06/29/2023 CO2 27 06/29/2023 BUN 23 06/29/2023 CREATININE 0.79 06/29/2023 GLUCOSE 193 (H) 06/29/2023 CALCIUM 8.3 (L) 06/29/2023 PROT 6.3 06/29/2023 ALKPHOS 121 06/29/2023 AST 32 06/29/2023 ALT 41 06/29/2023 EGFR 87.9 06/29/2023 GLOB 2.7 02/09/2023 Pain Score: 3 No echocardiogram results found for the past 14 days 06/28/23 ECG 12-LEAD (Preliminary) This result has not been signed. Information might be incomplete. Impression Sinus rhythm Abnormal R-wave progression, late transition Left ventricular hypertrophy Compared to ECG 06/28/2023 02:27:42 Sinus tachycardia no longer present Intraventricular conduction delay no longer present ST (T wave) deviation no longer present [id number] Note* Op Note - Sergio Sibley DO - 06/29/2023 8:19 AM EDT [facility] Name: Will Jacinto Procedure Date: 06/29/2023 8:19 AM Gender: Female Date of : 1965 Age: 57 Admit Type: Inpatient Note Status: Finalized Endoscopist: Sergio Sibley DO, [id number] Procedure: Upper GI endoscopy Indications: Chest pain (non cardiac), Nausea with vomiting Findings: The examined esophagus was normal. The Z-line was regular and was found 41 cm from the incisors. The entire examined stomach, cardia (on retroflexion) and gastric fundus (on retroflexion) were normal. The duodenal bulb and second portion of the duodenum were normal. Impression: - Normal esophagus. - Z-line regular, 41 cm from the incisors. - Normal stomach, cardia and gastric fundus. - Normal duodenal bulb and second portion of the duodenum. - No specimens collected. Recommendation: - Resume previous diet. - Continue present medications. - Tight glycemic control with small, frequent, low fat, low fiber meals - Will hold off on GES. Pt already on Reglan. Follow clinically Referring MD: Jared Guzman MD Medicines: Monitored Anesthesia Care, See the Anesthesia note for documentation of the administered medications Procedure: Pre-Anesthesia Assessment: - Prior to the procedure, a History and Physical was performed, and patient medications and allergies were reviewed. The patient's tolerance of previous anesthesia was also reviewed. The risks and benefits of the procedure and the sedation options and risks were discussed with the patient. All questions were answered, and informed consent was obtained. Prior Anticoagulants: The patient has taken no anticoagulant or antiplatelet agents. ASA Grade Assessment: III - A patient with severe systemic disease. After reviewing the risks and benefits, the patient was deemed in satisfactory condition to undergo the procedure. After obtaining informed consent, the endoscope was passed under direct vision. Throughout the procedure, the patient's blood pressure, pulse, and oxygen saturations were monitored continuously. The Endoscope was introduced through the mouth, and advanced to the second part of duodenum. The upper GI endoscopy was accomplished without difficulty. The patient tolerated the procedure well. Complications: No immediate complications. Procedure Code(s): --- Professional --- 03399, Esophagogastroduodenoscopy, flexible, transoral; diagnostic, including collection of specimen(s) by brushing or washing, when performed (separate procedure) --- Technical --- 08479, Esophagogastroduodenoscopy, flexible, transoral; diagnostic, including collection of specimen(s) by brushing or washing, when performed (separate procedure) Diagnosis Code(s): --- Professional --- R07.89, Other chest pain R11.2, Nausea with vomiting, unspecified --- Technical --- R07.89, Other chest pain R11.2, Nausea with vomiting, unspecified CPT copyright 2021 [employer]. All rights reserved. The codes documented in this report are preliminary and upon bead maker review may be revised to meet current compliance requirements. Attending Participation: I personally performed the entire procedure. Sergio Sibley DO 06/29/2023 10:29:14 AM This report has been signed electronically. Number of Addenda: 0 Note Initiated On: 06/29/2023 8:19 AM [facility] [id number] Note* Op Note - Sergio Sibley DO - 06/29/2023 8:19 AM [facility] Name: Will Jacinto Procedure Date: 06/29/2023 8:19 AM Gender: Female Date of : 1965 Age: 57 Admit Type: Inpatient Note Status: Finalized Endoscopist: Sergio Sibley DO, [id number] Procedure: Upper GI endoscopy Indications: Chest pain (non cardiac), Nausea with vomiting Findings: The examined esophagus was normal. The Z-line was regular and was found 41 cm from the incisors. The entire examined stomach, cardia (on retroflexion) and gastric fundus (on retroflexion) were normal. The duodenal bulb and second portion of the duodenum were normal. Impression: - Normal esophagus. - Z-line regular, 41 cm from the incisors. - Normal stomach, cardia and gastric fundus. - Normal duodenal bulb and second portion of the duodenum. - No specimens collected. Recommendation: - Resume previous diet. - Continue present medications. - Tight glycemic control with small, frequent, low fat, low fiber meals - Will hold off on GES. Pt already on Reglan. Follow clinically Referring MD: Jared Guzman MD Medicines: Monitored Anesthesia Care, See the Anesthesia note for documentation of the administered medications Procedure: Pre-Anesthesia Assessment: - Prior to the procedure, a History and Physical was performed, and patient medications and allergies were reviewed. The patient's tolerance of previous anesthesia was also reviewed. The risks and benefits of the procedure and the sedation options and risks were discussed with the patient. All questions were answered, and informed consent was obtained. Prior Anticoagulants: The patient has taken no anticoagulant or antiplatelet agents. ASA Grade Assessment: III - A patient with severe systemic disease. After reviewing the risks and benefits, the patient was deemed in satisfactory condition to undergo the procedure. After obtaining informed consent, the endoscope was passed under direct vision. Throughout the procedure, the patient's blood pressure, pulse, and oxygen saturations were monitored continuously. The Endoscope was introduced through the mouth, and advanced to the second part of duodenum. The upper GI endoscopy was accomplished without difficulty. The patient tolerated the procedure well. Complications: No immediate complications. Procedure Code(s): --- Professional --- 76099, Esophagogastroduodenoscopy, flexible, transoral; diagnostic, including collection of specimen(s) by brushing or washing, when performed (separate procedure) --- Technical --- 06479, Esophagogastroduodenoscopy, flexible, transoral; diagnostic, including collection of specimen(s) by brushing or washing, when performed (separate procedure) Diagnosis Code(s): --- Professional --- R07.89, Other chest pain R11.2, Nausea with vomiting, unspecified --- Technical --- R07.89, Other chest pain R11.2, Nausea with vomiting, unspecified CPT copyright 2021 [employer]. All rights reserved. The codes documented in this report are preliminary and upon bead maker review may be revised to meet current compliance requirements. Attending Participation: I personally performed the entire procedure. Sergio Sibley DO 06/29/2023 10:29:14 AM This report has been signed electronically. Number of Addenda: 0 Note Initiated On: 06/29/2023 8:[address] [facility]08-21-2023 Consult note* Sergio Sibley DO - 06/28/2023 11:59 AM EDTAssociated Order(s): IP CONSULT TO GI Images from the original note were not included. GASTROENTEROLOGY CONSULTATION REASON FOR CONSULT: The patient was seen in consultation at the request of Dr. Hill re: Chest pressure, N/V HISTORY OF PRESENT ILLNESS: The patient is a 57 y.o. transgender F-to-M adult who presents with N/Vand associated chest pressure for the past 4 to 5 days. No associated heartburn, odynophagia, dysphagia. Minimal epigastric discomfort. BMs are normal without any reports of bleeding, constipation ordiarrhea. No prior history in the past. He is diabetic and reportedly his sugars have been elevated. No known prior history of gastroparesis. Denies any excessive NSAIDs. Maintains on pantoprazole daily. He was evaluated by cardiology and no further cardiac work-up recommended. PAST MEDICAL HISTORY: 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) Acquired absence of other toe(s), unspecified side (HCC) Anxiety disorder Bipolar 1 disorder (HCC) Blood circulation, collateral Cellulitis chronic L lower leg COVID 12/08/2021 Depression Diabetes mellitus (HCC) Type II, on insulin Disease of blood and blood forming organ Endometrial carcinoma (HCC) 11/25/2020 Endometrial hyperplasia Foot ulcer (HCC) Hx of blood clots RLE prior to amputation Hyperlipidemia Hypertension Lymphedema 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, RLE Morbidly obese (HCC) Muscle weakness Osteomyelitis (HCC) Osteomyelitis (HCC) 2019 RLE Other lack of coordination Other specified soft tissue disorders Other symbolic dysfunctions Schizophrenia (HCC) Sleep apnea no CPAP Venous insufficiency PAST SURGICAL HISTORY: Past Surgical History: Procedure Laterality Date ABCESS DRAINAGE Right 09/09/2018 FOOT; [facility] COLONOSCOPY 09/19/[address] Hyde DILATION AND CURETTAGE OF UTERUS 05/18/2019 HYSTEROSCOPY 12/23/2021 LEG AMPUTATION THROUGH KNEE Right 06/16/2019 WISDOM TOOTH EXTRACTION SOCIAL HISTORY: TOBACCO: Social History Tobacco Use Smoking Status Never Smokeless Tobacco Never ETOH: Alcohol Use: Not At Risk (03/08/2023) AUDIT-C Frequency of Alcohol Consumption: Never Average Number of Drinks: Patient does not drink Frequency of Binge Drinking: Never DRUGS: Social History Substance and Sexual Activity Drug Use Never FAMILY HISTORY: No family history on file. MEDICATIONS PRIOR TO ADMISSION: Current Outpatient Medications Medication Instructions ARIPiprazole (Abilify) 10 MG tablet Every 24 hours aspirin 81 MG EC tablet 1 tablet, Oral, Daily atorvastatin (Lipitor) 10 MG tablet 1 tablet, Oral, Daily dilTIAZem CD (CARDIZEM CD) 180 mg, Oral, Daily dulaglutide (TRULICITY) 4.5 mg, SubCUTAneous, Weekly FLUoxetine (PROZAC) 40 mg, Oral, Daily gabapentin (NEURONTIN) 100 mg, Oral, 2 times daily insulin regular (HumuLIN R U-500 KWIKPEN) 500 UNIT/ML CONCENTRATED injection SubCUTAneous, 3 times daily, 285 units before breakfast/260 units before lunch/285 units before dinner Lactobacillus Acid-Pectin (Acidophilus/Rosemead Pectin) tablet 1 tablet, Oral, 2 times daily lisinopril 40 MG tablet Every 24 hours Loratadine 10 MG capsule Oral magnesium hydroxide (Milk of Magnesia Concentrate) 2400 MG/10ML suspension suspension Every 24 hours megestrol (Megace) 20 MG tablet 1 tablet, Oral, 2 times daily metoclopramide (REGLAN) 10 mg, Oral, 4 times daily metoprolol tartrate (Lopressor) 25 MG tablet 1 tablet, Oral, 2 times daily miconazole (Micotin) 2 % powder Topical, 2 times daily ondansetron (ZOFRAN) 8 mg, Oral pantoprazole (PROTONIX) 40 mg, Oral polyethylene glycol (PEG) 3350 (GLYCOLAX) 17 g, Oral, Daily potassium chloride CR (K-Tab) 20 MEQ ER tablet Every 24 hours CURRENT MEDICATIONS: Current Facility-Administered Medications: acetaminophen (Tylenol) tablet 650 mg, 650 mg, Oral, q6h PRN OR acetaminophen (Tylenol) suppository 650 mg, 650 mg, Rectal, q6h PRN, Nabil M Esterle, DO acidophilus lactobacillus 1 capsule, 1 capsule, Oral, BID, Nabil M Esterle, DO, 1 capsule at 06/28/23 0900 ARIPiprazole (Abilify) tablet 10 mg, 10 mg, Oral, Daily, Nabil M Esterle, DO, 10 mg at 06/28/23 1043 aspirin EC tablet 81 mg, 81 mg, Oral, Daily, Nabil M Esterle, DO atorvastatin (Lipitor) tablet 10 mg, 10 mg, Oral, Daily, Nabil M Esterle, DO, 10 mg at 06/28/23 1043 cetirizine (ZyrTEC) tablet 10 mg, 10 mg, Oral, Daily, Nabil M Esterle, DO, 10 mg at 06/28/23 1043 dextrose 5 % infusion, 100 mL/hr, IntraVENous, PRN, Nabil M Esterle, DO dextrose 50 % solution 12.5 g, 12.5 g, IntraVENous, PRN, Nabil M Esterle, DO dilTIAZem CD (Cardizem CD) 24 hr capsule 180 mg, 180 mg, Oral, Daily, Nabil M Esterle, DO, 180 mg at06/28/23 1044 dulaglutide (Trulicity) injection 4.5 mg, 4.5 mg, SubCUTAneous, Weekly, Nabil M Esterle, DO enoxaparin (Lovenox) syringe 40 mg, 40 mg, SubCUTAneous, Daily, Nabil M Esterle, DO, 40 mg at 06/28/23 1049 FLUoxetine (PROzac) capsule 40 mg, 40 mg, Oral, Daily, Nabil M Esterle, DO, 40 mg at 06/28/23 1044 gabapentin (Neurontin) capsule 100 mg, 100 mg, Oral, BID, Nabil M Esterle, DO, 100 mg at 06/28/23 1043 glucagon (human recombinant) injection 1 mg, 1 mg, IntraMUSCular, PRN, Nabil M Esterle, DO glucose oral gel 15 g, 15 g, Oral, PRN, Nabil M Esterle, DO Insulin Lispro (Humalog) injection 0-18 Units, 0-18 Units, SubCUTAneous, TID , Geronimo Lee MD Insulin Lispro (Humalog) injection 45 Units, 45 Units, SubCUTAneous, TID , Geronimo Lee MD insulin NPH (Isophane) (HumuLIN N,NovoLIN N) injection 85 Units, 85 Units, SubCUTAneous, q AM, Geronimo Lee MD insulin NPH (Isophane) (HumuLIN N,NovoLIN N) injection 85 Units, 85 Units, SubCUTAneous, Nightly, Geronimo Lee MD lisinopril tablet 40 mg, 40 mg, Oral, q24h, Nabil M Esterle, DO, 40 mg at 06/28/23 1044 megestrol (Megace) tablet 20 mg, 20 mg, Oral, BID, Nabil M Esterle, DO, 20 mg at 06/28/23 1044 metoclopramide (Reglan) tablet 10 mg, 10 mg, Oral, 4x daily, Nabil M Esterle, DO, 10 mg at 06/28/23 1043 metoprolol tartrate (Lopressor) tablet 25 mg, 25 mg, Oral, BID, Nabil M Esterle, DO, 25 mg at 06/28/23 1044 miconazole (Micotin) 2 % powder, , Topical, BID, Nabil M Esterle, DO, Given at 06/28/23 1049 nitroglycerin (Nitrostat) SL tablet 0.4 mg, 0.4 mg, SubLINGual, q5 min PRN, Nabil M Esterle, DO ondansetron ODT (Zofran-ODT) disintegrating tablet 4 mg, 4 mg, Oral, q8h PRN OR ondansetron (Zofran) injection 4 mg, 4 mg, IntraVENous, q6h PRN, Nabil M Esterle, DO, 4 mg at 06/28/23 1038 pantoprazole (ProtoNix) EC tablet 40 mg, 40 mg, Oral, qAM AC, Nabil M Esterle, DO, 40 mg at 055 polyethylene glycol (PEG) 3350 (Miralax) packet 17 g, 17 g, Oral, Daily, Nabil M Esterle, DO polyethylene glycol (PEG) 3350 (Miralax) packet 17 g, 17 g, Oral, Daily PRN, Nabil M Esterle, DO potassium chloride (Klor-Con) packet 20 mEq, 20 mEq, Oral, q24h, Nabil M Esterle, DO, 20 mEq at 06/28/23 1054 sodium chloride 0.9 % infusion, 75 mL/hr, IntraVENous, Continuous, Nabil M Esterle, DO, Last Rate: 75 mL/hr at 06/28/23 1054, 75 mL/hr at 06/28/23 1054 ALLERGIES: No Known Allergies REVIEW OF SYMPTOMS: Ten-point review of symptoms was noted and reviewed in the chart. PHYSICAL EXAM VS:vBP (!) 160/94 (BP Location: Left arm, Patient Position: Sitting) Pulse 108 Temp 36.7 C (98 F) (Temporal) Resp 17 SpO2 95% There is no height or weight on file to calculate BMI. GENERAL: Obese, pleasant and NAD. HEENT: Scleral anicteric. Oropharhynx clear with no erythema or exudate. CV: RRR, NL S1/S2 LUNGS: CTA b/l anteriorly ABDOMEN: Obese,soft, non-tender and non-distended, + BS. EXT: R AKA MUSCULOSKELETALl: Strength 5/5 in all exts. NEURO: A&O x 3, No obvious focal deficits. LABS AND IMAGING: Recent blood work and relevant radiologic and endoscopic studies were reviewed and discussed with the patient. Results from last 7 days Lab Units 06/28/23 0250 WBC AUTO 10*3/uL 11.8* HEMOGLOBIN g/dL 11.6* HEMATOCRIT % 35.1 PLATELETS AUTO 10*3/uL 384 Results from last 7 days Lab Units 06/28/23 0250 SODIUM mmol/L 133* POTASSIUM mmol/L 5.0 CHLORIDE mmol/L 102 CO2 mmol/L 24 BUN mg/dL 20 CREATININE mg/dL 0.64 CALCIUM mg/dL 9.1 GLUCOSE mg/dL 194* Component Latest Ref Rng & Units 08/29/2020 11/23/2020 07/20/2022 02/09/2023 HEMOGLOBIN A1C - [facility] <5.7 % of total Hgb 9.9 10.0 (A) 10.1 (A) 10.1 (H) IMAGING: Exam Date/Time: 06/28/2023 03:49 Procedure: CT CHEST ANGIOGRAM W AND/OR WO IV CONTRAST Ordering Provider: MUSTAFA KATHRYN Reason For Exam: CP, history of DVT not on anticoagulation, 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 COMPARISON: None Technique: [address] images were obtained of the chest after the uneventful IV administrationof 75 mL of Isovue-370. Image acquisition was timed for maximal opacification of the pulmonary arteries. Images were reformatted in coronal and sagittal projections. 3D reformats were generated concurrently by myself on a separate workstation to better visualize the gross vascular anatomy. Dose reduction was employed using automatic exposure control. FINDINGS: Pulmonary arteries: There is very suboptimal opacification of the pulmonary arteries. This study is essentially nondiagnostic for evaluation of segmental and subsegmental pulmonary emboli. Given these limitations, no large central filling defects are identified. Lungs: 7 mm nodule anterior lateral right middle lobe (4:139). No areas of consolidation. The tracheobronchial tree remains patent. Pleura: No pleural effusion Heart/Great vessels: The heart is normal in size with no pericardial effusion. The aorta and pulmonary arteries are normal in caliber. Mediastinum/Peggy: There are no enlarged mediastinal, hilar, or axillary lymph nodes. Thyroid and Esophagus: Normal Visualized Upper Abdomen: Normal Chest wall/Lower neck: Normal Bones: Multilevel flowing osteophytes consistent with DISH. IMPRESSION: Suboptimal opacification of the pulmonary arteries. This study is nondiagnostic for evaluation of segmental and subsegmental pulmonary embolus. Given these limitations, no large central filling defects identified. No areas of consolidation or effusion. 7 mm nodule right middle lobe. There are no prior studies for comparison. Per the 2017 [employer] society guidelines for incidentally discovered solitary pulmonary nodule (6-8mm): ASSESSMENT: Nausea/vomiting with associated chest pressure: Rule out secondary to esophagitis (reflux related, Homa), GERD, gastritis, PUD. I suspect underlying gastroparesis secondary to uncontrolled diabetes. PLAN: EGD in a.m. Continue PPI daily for now Tight glycemic control Small, frequent, low-fat, low fiber meals Antiemetics as needed Further recommendations pending EGD The benefits, alternatives, and risks of the procedure(s) including (but not exclusive to) bleeding, perforation, infection, hypoxia/hypotension/allergic reaction(s) due to sedatives need for surgery, and likelihood of missing a lesion, were explained to the patient/guardian/responsible accompanying adult who is agreeable (Comment: Please note this report has been produced using speech recognition software and may contain errors related to that system including errors in grammar, punctuation, and spelling, as well as words and phrases that may be inappropriate. If there are any questions or concerns please feel freeto contact the dictating provider for clarification.) Electronically signed by Sergio Sibley DO 06/28/2023 11:59 AM [employer] Phone: [phone] Consult note* Sergio Sibley DO - 06/28/2023 11:59 AM EDTAssociated Order(s): IP CONSULT TO GI Images from the original note were not included. GASTROENTEROLOGY CONSULTATION REASON FOR CONSULT: The patient was seen in consultation at the request of Dr. Hill re: Chest pressure, N/V HISTORY OF PRESENT ILLNESS: The patient is a 57 y.o. transgender F-to-M adult who presents with N/Vand associated chest pressure for the past 4 to 5 days. No associated heartburn, odynophagia, dysphagia. Minimal epigastric discomfort. BMs are normal without any reports of bleeding, constipation ordiarrhea. No prior history in the past. He is diabetic and reportedly his sugars have been elevated. No known prior history of gastroparesis. Denies any excessive NSAIDs. Maintains on pantoprazole daily. He was evaluated by cardiology and no further cardiac work-up recommended. PAST MEDICAL HISTORY: 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) Acquired absence of other toe(s), unspecified side (HCC) Anxiety disorder Bipolar 1 disorder (HCC) Blood circulation, collateral Cellulitis chronic L lower leg COVID 12/08/2021 Depression Diabetes mellitus (HCC) Type II, on insulin Disease of blood and blood forming organ Endometrial carcinoma (HCC) 11/25/2020 Endometrial hyperplasia Foot ulcer (HCC) Hx of blood clots RLE prior to amputation Hyperlipidemia Hypertension Lymphedema 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, RLE Morbidly obese (HCC) Muscle weakness Osteomyelitis (HCC) Osteomyelitis (HCC) 2019 RLE Other lack of coordination Other specified soft tissue disorders Other symbolic dysfunctions Schizophrenia (HCC) Sleep apnea no CPAP Venous insufficiency PAST SURGICAL HISTORY: Past Surgical History: Procedure Laterality Date ABCESS DRAINAGE Right 09/09/2018 FOOT; ACH COLONOSCOPY 09/19/[address] Hyde DILATION AND CURETTAGE OF UTERUS 05/18/2019 HYSTEROSCOPY 12/23/2021 LEG AMPUTATION THROUGH KNEE Right 06/16/2019 WISDOM TOOTH EXTRACTION SOCIAL HISTORY: TOBACCO: Social History Tobacco Use Smoking Status Never Smokeless Tobacco Never ETOH: Alcohol Use: Not At Risk (03/08/2023) AUDIT-C Frequency of Alcohol Consumption: Never Average Number of Drinks: Patient does not drink Frequency of Binge Drinking: Never DRUGS: Social History Substance and Sexual Activity Drug Use Never FAMILY HISTORY: No family history on file. MEDICATIONS PRIOR TO ADMISSION: Current Outpatient Medications Medication Instructions ARIPiprazole (Abilify) 10 MG tablet Every 24 hours aspirin 81 MG EC tablet 1 tablet, Oral, Daily atorvastatin (Lipitor) 10 MG tablet 1 tablet, Oral, Daily dilTIAZem CD (CARDIZEM CD) 180 mg, Oral, Daily dulaglutide (TRULICITY) 4.5 mg, SubCUTAneous, Weekly FLUoxetine (PROZAC) 40 mg, Oral, Daily gabapentin (NEURONTIN) 100 mg, Oral, 2 times daily insulin regular (HumuLIN R U-500 KWIKPEN) 500 UNIT/ML CONCENTRATED injection SubCUTAneous, 3 times daily, 285 units before breakfast/260 units before lunch/285 units before dinner Lactobacillus Acid-Pectin (Acidophilus/Rosemead Pectin) tablet 1 tablet, Oral, 2 times daily lisinopril 40 MG tablet Every 24 hours Loratadine 10 MG capsule Oral magnesium hydroxide (Milk of Magnesia Concentrate) 2400 MG/10ML suspension suspension Every 24 hours megestrol (Megace) 20 MG tablet 1 tablet, Oral, 2 times daily metoclopramide (REGLAN) 10 mg, Oral, 4 times daily metoprolol tartrate (Lopressor) 25 MG tablet 1 tablet, Oral, 2 times daily miconazole (Micotin) 2 % powder Topical, 2 times daily ondansetron (ZOFRAN) 8 mg, Oral pantoprazole (PROTONIX) 40 mg, Oral polyethylene glycol (PEG) 3350 (GLYCOLAX) 17 g, Oral, Daily potassium chloride CR (K-Tab) 20 MEQ ER tablet Every 24 hours CURRENT MEDICATIONS: Current Facility-Administered Medications: acetaminophen (Tylenol) tablet 650 mg, 650 mg, Oral, q6h PRN OR acetaminophen (Tylenol) suppository 650 mg, 650 mg, Rectal, q6h PRN, Nabil M Esterle, DO acidophilus lactobacillus 1 capsule, 1 capsule, Oral, BID, Nabil M Esterle, DO, 1 capsule at 06/28/23 0900 ARIPiprazole (Abilify) tablet 10 mg, 10 mg, Oral, Daily, Nabil M Esterle, DO, 10 mg at 06/28/23 1043 aspirin EC tablet 81 mg, 81 mg, Oral, Daily, Nabil M Esterle, DO atorvastatin (Lipitor) tablet 10 mg, 10 mg, Oral, Daily, Nabil M Esterle, DO, 10 mg at 06/28/23 1043 cetirizine (ZyrTEC) tablet 10 mg, 10 mg, Oral, Daily, Nabil M Esterle, DO, 10 mg at 06/28/23 1043 dextrose 5 % infusion, 100 mL/hr, IntraVENous, PRN, Nabil M Esterle, DO dextrose 50 % solution 12.5 g, 12.5 g, IntraVENous, PRN, Nabil M Esterle, DO dilTIAZem CD (Cardizem CD) 24 hr capsule 180 mg, 180 mg, Oral, Daily, Nabil M Esterle, DO, 180 mg at06/28/23 1044 dulaglutide (Trulicity) injection 4.5 mg, 4.5 mg, SubCUTAneous, Weekly, Nabil M Esterle, DO enoxaparin (Lovenox) syringe 40 mg, 40 mg, SubCUTAneous, Daily, Nabil M Esterle, DO, 40 mg at 06/28/23 1049 FLUoxetine (PROzac) capsule 40 mg, 40 mg, Oral, Daily, Nabil M Esterle, DO, 40 mg at 06/28/23 1044 gabapentin (Neurontin) capsule 100 mg, 100 mg, Oral, BID, Nabil M Esterle, DO, 100 mg at 06/28/23 1043 glucagon (human recombinant) injection 1 mg, 1 mg, IntraMUSCular, PRN, Nabil M Esterle, DO glucose oral gel 15 g, 15 g, Oral, PRN, Nabil M Esterle, DO Insulin Lispro (Humalog) injection 0-18 Units, 0-18 Units, SubCUTAneous, TID , Geronimo Lee MD Insulin Lispro (Humalog) injection 45 Units, 45 Units, SubCUTAneous, TID WC, Geronimo Lee MD insulin NPH (Isophane) (HumuLIN N,NovoLIN N) injection 85 Units, 85 Units, SubCUTAneous, q AM, Geronimo Lee MD insulin NPH (Isophane) (HumuLIN N,NovoLIN N) injection 85 Units, 85 Units, SubCUTAneous, Nightly, Geronimo Lee MD lisinopril tablet 40 mg, 40 mg, Oral, q24h, Nabil M Esterle, DO, 40 mg at 06/28/23 1044 megestrol (Megace) tablet 20 mg, 20 mg, Oral, BID, Nabil M Esterle, DO, 20 mg at 06/28/23 1044 metoclopramide (Reglan) tablet 10 mg, 10 mg, Oral, 4x daily, Nabil M Esterle, DO, 10 mg at 06/28/23 1043 metoprolol tartrate (Lopressor) tablet 25 mg, 25 mg, Oral, BID, Nabil M Esterle, DO, 25 mg at 06/28/23 1044 miconazole (Micotin) 2 % powder, , Topical, BID, Nabil M Esterle, DO, Given at 06/28/23 1049 nitroglycerin (Nitrostat) SL tablet 0.4 mg, 0.4 mg, SubLINGual, q5 min PRN, Nabil M Esterle, DO ondansetron ODT (Zofran-ODT) disintegrating tablet 4 mg, 4 mg, Oral, q8h PRN OR ondansetron (Zofran) injection 4 mg, 4 mg, IntraVENous, q6h PRN, Nabil M Esterle, DO, 4 mg at 06/28/23 1038 pantoprazole (ProtoNix) EC tablet 40 mg, 40 mg, Oral, qAM AC, Nabil M Esterle, DO, 40 mg at 055 polyethylene glycol (PEG) 3350 (Miralax) packet 17 g, 17 g, Oral, Daily, Nabil M Esterle, DO polyethylene glycol (PEG) 3350 (Miralax) packet 17 g, 17 g, Oral, Daily PRN, Nabil M Esterle, DO potassium chloride (Klor-Con) packet 20 mEq, 20 mEq, Oral, q24h, Nabil M Esterle, DO, 20 mEq at 06/28/23 1054 sodium chloride 0.9 % infusion, 75 mL/hr, IntraVENous, Continuous, Nabil M Esterle, DO, Last Rate: 75 mL/hr at 06/28/23 1054, 75 mL/hr at 06/28/23 1054 ALLERGIES: No Known Allergies REVIEW OF SYMPTOMS: Ten-point review of symptoms was noted and reviewed in the chart. PHYSICAL EXAM VS:vBP (!) 160/94 (BP Location: Left arm, Patient Position: Sitting) Pulse 108 Temp 36.7 C (98 F) (Temporal) Resp 17 SpO2 95% There is no height or weight on file to calculate BMI. GENERAL: Obese, pleasant and NAD. HEENT: Scleral anicteric. Oropharhynx clear with no erythema or exudate. CV: RRR, NL S1/S2 LUNGS: CTA b/l anteriorly ABDOMEN: Obese,soft, non-tender and non-distended, + BS. EXT: R AKA MUSCULOSKELETALl: Strength 5/5 in all exts. NEURO: A&O x 3, No obvious focal deficits. LABS AND IMAGING: Recent blood work and relevant radiologic and endoscopic studies were reviewed and discussed with the patient. Results from last 7 days Lab Units 06/28/23 0250 WBC AUTO 10*3/uL 11.8* HEMOGLOBIN g/dL 11.6* HEMATOCRIT % 35.1 PLATELETS AUTO 10*3/uL 384 Results from last 7 days Lab Units 06/28/23 0250 SODIUM mmol/L 133* POTASSIUM mmol/L 5.0 CHLORIDE mmol/L 102 CO2 mmol/L 24 BUN mg/dL 20 CREATININE mg/dL 0.64 CALCIUM mg/dL 9.1 GLUCOSE mg/dL 194* Component Latest Ref Rng & Units 08/29/2020 11/23/2020 07/20/2022 02/09/2023 HEMOGLOBIN A1C - [facility] <5.7 % of total Hgb 9.9 10.0 (A) 10.1 (A) 10.1 (H) IMAGING: Exam Date/Time: 06/28/2023 03:49 Procedure: CT CHEST ANGIOGRAM W AND/OR WO IV CONTRAST Ordering Provider: MUSTAFA KATHRYN Reason For Exam: CP, history of DVT not on anticoagulation, 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 COMPARISON: None Technique: [address] images were obtained of the chest after the uneventful IV administrationof 75 mL of Isovue-370. Image acquisition was timed for maximal opacification of the pulmonary arteries. Images were reformatted in coronal and sagittal projections. 3D reformats were generated concurrently by myself on a separate workstation to better visualize the gross vascular anatomy. Dose reduction was employed using automatic exposure control. FINDINGS: Pulmonary arteries: There is very suboptimal opacification of the pulmonary arteries. This study is essentially nondiagnostic for evaluation of segmental and subsegmental pulmonary emboli. Given these limitations, no large central filling defects are identified. Lungs: 7 mm nodule anterior lateral right middle lobe (4:139). No areas of consolidation. The tracheobronchial tree remains patent. Pleura: No pleural effusion Heart/Great vessels: The heart is normal in size with no pericardial effusion. The aorta and pulmonary arteries are normal in caliber. Mediastinum/Peggy: There are no enlarged mediastinal, hilar, or axillary lymph nodes. Thyroid and Esophagus: Normal Visualized Upper Abdomen: Normal Chest wall/Lower neck: Normal Bones: Multilevel flowing osteophytes consistent with DISH. IMPRESSION: Suboptimal opacification of the pulmonary arteries. This study is nondiagnostic for evaluation of segmental and subsegmental pulmonary embolus. Given these limitations, no large central filling defects identified. No areas of consolidation or effusion. 7 mm nodule right middle lobe. There are no prior studies for comparison. Per the 2017 [place] society guidelines for incidentally discovered solitary pulmonary nodule (6-8mm): ASSESSMENT: Nausea/vomiting with associated chest pressure: Rule out secondary to esophagitis (reflux related, Homa), GERD, gastritis, PUD. I suspect underlying gastroparesis secondary to uncontrolled diabetes. PLAN: EGD in a.m. Continue PPI daily for now Tight glycemic control Small, frequent, low-fat, low fiber meals Antiemetics as needed Further recommendations pending EGD The benefits, alternatives, and risks of the procedure(s) including (but not exclusive to) bleeding, perforation, infection, hypoxia/hypotension/allergic reaction(s) due to sedatives need for surgery, and likelihood of missing a lesion, were explained to the patient/guardian/responsible accompanying adult who is agreeable (Comment: Please note this report has been produced using speech recognition software and may contain errors related to that system including errors in grammar, punctuation, and spelling, as well as words and phrases that may be inappropriate. If there are any questions or concerns please feel freeto contact the dictating provider for clarification.) Electronically signed by Sergio Sibley DO 06/28/2023 11:59 AM * Geronimo Lee MD - 06/28/2023 10:45 AM EDTAssociated Order(s): IP CONSULT TO ENDOCRINOLOGY Department of Internal Medicine Division of Endocrinology, Diabetes, & Metabolism Endocrinology Note Patient Name: Will Jacinto : 1965 AGE: 57 y.o. Room/Bed: [facility] B Admission Date: 06/28/2023 Visit Date: 06/28/2023 Reason for Endocrine Consult: dm2 Provider/Team Requesting Consult: Dr. Hill PCP: Jared Guzman Outpt District Sales Coordinator: Dr. Jesus spear endo ASSESSMENT: DM 2 poor control Cheat pain nausea Pmhx Aka Bipolar disorder Cellulitis Covid Depression Dm2 severe insulin resistance Endometrial cancer Hlp Htn Schizophrenia Osteomylelits John PLAN: Given anticipated decreased diet Would decrease insulin doses from previous Use NPH 85 units am and bed Hlog 45 units meals High dose ss hlog meals not bed Convert to u500 on discharge Discussed with patient detection, monitoring, management, and prevention of hypoglycemia ICU goal <180 GMF goal <150 POCT ACHS Hypoglycemia per protocol Carb controlled diet ANTICIPATED ENDOCRINE HOME GOING RECOMMENDATIONS: Optimized for Discharge from Endocrine standpoint: No Home Going Endocrine Rx Recommendations-- U500 insulin doses to be determined Outpt Follow Up-- [facility] [place] endo Dr. Lee SUBJECTIVE/HPI: CHIEF COMPLAINT: Chief Complaint Patient presents with Chest Pain Vomiting The patient presented with chest pain and nausea. Pmhx Aka Bipolar disorder Cellulitis Covid Depression Dm2 severe insulin resistance Endometrial cancer Hlp Htn Schizophrenia Osteomylelits John Type of DM: 2 Onset of DM: 1991 Home DM Medication Regimen: u500 285 units meals DM control (last A1c/glucose data): Latest Reference Range & Units 11/23/20 03:51 07/20/22 00:00 02/09/23 10:22 HEMOGLOBIN A1C - [facility] <5.7 % of total Hgb 10.0 ! 10.1 ! (E) 10.1 (H) !: Data is abnormal (H): Data is abnormally high (E): External lab result Current therapy for diabetes in hospital: Clear liquid diet U500 insulin 285 units with meals Blood glucose 167- 247 Current appetite poor Glucose Date/Time Value Ref Range Status 06/28/2023 06:15 AM 247 (H) 70 - 100 mg/dL Final 03/08/2023 01:14 PM 167 (H) 70 - 100 mg/dL Final Glucose Blood, POC Date/Time Value Ref Range Status 12/23/2021 10:51 AM 122 (H) 70 - 100 mg/dL Final Comment: Test performed by glucose meter. Results may be 10%-15% lower than serum/plasma values. (CLIA ID [id number]) 12/23/2021 07:28 AM 107 (H) 70 - 100 mg/dL Final Comment: Test performed by glucose meter. Results may be 10%-15% lower than serum/plasma values. (CLIA ID [id number]) 11/28/2020 04:54 PM 111 (H) 70 - 100 mg/dL Final Comment: Test performed by glucose meter. Results may be 10%-15% lower than serum/plasma values. (CLIA ID [id number]) 11/28/2020 10:18 AM 166 (H) 70 - 100 mg/dL Final Comment: Test performed by glucose meter. Results may be 10%-15% lower than serum/plasma values. (CLIA ID [id number]) 11/28/2020 07:57 AM 215 (H) 70 - 100 mg/dL Final Comment: Test performed by glucose meter. Results may be 10%-15% lower than serum/plasma values. (CLIA ID [id number]) 11/27/2020 09:08 PM 91 70 - 100 mg/dL Final Comment: Test performed by glucose meter. Results may be 10%-15% lower than serum/plasma values. (CLIA ID [id number]) Review of Systems Constitutional: Positive for appetite change and fatigue. Negative for activity change. HENT: Negative for trouble swallowing and voice change. Gastrointestinal: Positive for nausea. Negative for abdominal pain, diarrhea and vomiting. Endocrine: Negative for cold intolerance and heat intolerance. Genitourinary: Negative for hematuria. Neurological: Positive for weakness. Psychiatric/Behavioral: Positive for sleep disturbance. The patient is nervous/anxious. OBJECTIVE: Vitals: 06/28/23 0217 06/28/23 0535 06/28/23 0607 BP: (!) 172/84 (!) 175/73 (!) 174/91 BP Location: Left arm Left arm Patient Position: Sitting Sitting Pulse: 107 107 (!) 111 Resp: 18 Temp: 36.7 C (98 F) 36.7 C (98 F) TempSrc: Oral Temporal SpO2: 96% 95% 95% Physical Exam Vitals reviewed. Constitutional: General: He is not in acute distress. Appearance: Normal appearance. He is obese. He is not ill-appearing. Eyes: General: No scleral icterus. Right eye: No discharge. Left eye: No discharge. Cardiovascular: Rate and Rhythm: Normal rate and regular rhythm. Pulses: Normal pulses. Heart sounds: Normal heart sounds. No murmur heard. No friction rub. Pulmonary: Effort: Pulmonary effort is normal. No respiratory distress. Breath sounds: Normal breath sounds. No stridor. No wheezing or rhonchi. Musculoskeletal: Cervical back: Normal range of motion and neck supple. No rigidity or tenderness. Comments: aka Skin: General: Skin is warm and dry. Coloration: Skin is not jaundiced or pale. Neurological: General: No focal deficit present. Mental Status: He is alert and oriented to person, place, and time. Cranial Nerves: No cranial nerve deficit. Sensory: No sensory deficit. Psychiatric: Mood and Affect: Mood normal. Behavior: Behavior normal. 24 hour intake/output:No intake or output data in the 24 hours ending 06/28/23 1045 Diet: Adult diet Clear liquid Medications (as per EMR): HomeMeds: Current Outpatient Medications Medication Instructions ARIPiprazole (Abilify) 10 MG tablet Every 24 hours aspirin 81 MG EC tablet 1 tablet, Oral, Daily atorvastatin (Lipitor) 10 MG tablet 1 tablet, Oral, Daily dilTIAZem CD (CARDIZEM CD) 180 mg, Oral, Daily dulaglutide (TRULICITY) 4.5 mg, SubCUTAneous, Weekly FLUoxetine (PROZAC) 40 mg, Oral, Daily gabapentin (NEURONTIN) 100 mg, Oral, 2 times daily insulin regular (HumuLIN R U-500 KWIKPEN) 500 UNIT/ML CONCENTRATED injection SubCUTAneous, 3 times daily, 285 units before breakfast/260 units before lunch/285 units before dinner Lactobacillus Acid-Pectin (Acidophilus/Rosemead Pectin) tablet 1 tablet, Oral, 2 times daily lisinopril 40 MG tablet Every 24 hours Loratadine 10 MG capsule Oral magnesium hydroxide (Milk of Magnesia Concentrate) 2400 MG/10ML suspension suspension Every 24 hours megestrol (Megace) 20 MG tablet 1 tablet, Oral, 2 times daily metoclopramide (REGLAN) 10 mg, Oral, 4 times daily metoprolol tartrate (Lopressor) 25 MG tablet 1 tablet, Oral, 2 times daily miconazole (Micotin) 2 % powder Topical, 2 times daily ondansetron (ZOFRAN) 8 mg, Oral pantoprazole (PROTONIX) 40 mg, Oral polyethylene glycol (PEG) 3350 (GLYCOLAX) 17 g, Oral, Daily potassium chloride CR (K-Tab) 20 MEQ ER tablet Every 24 hours Scheduled Meds:acidophilus lactobacillus, 1 capsule, Oral, BID ARIPiprazole, 10 mg, Oral, Daily aspirin, 81 mg, Oral, Daily atorvastatin, 10 mg, Oral, Daily cetirizine, 10 mg, Oral, Daily dilTIAZem CD, 180 mg, Oral, Daily dulaglutide, 4.5 mg, SubCUTAneous, Weekly enoxaparin, 40 mg, SubCUTAneous, Daily FLUoxetine, 40 mg, Oral, Daily gabapentin, 100 mg, Oral, BID insulin regular, 285 Units, SubCUTAneous, TID lisinopril, 40 mg, Oral, q24h megestrol, 20 mg, Oral, BID metoclopramide, 10 mg, Oral, 4x daily metoprolol tartrate, 25 mg, Oral, BID miconazole, , Topical, BID pantoprazole, 40 mg, Oral, qAM AC polyethylene glycol (PEG) 3350, 17 g, Oral, Daily potassium chloride, 20 mEq, Oral, q24h Continuous Infusions:sodium chloride, 75 mL/hr PRN Meds:PRN medications: acetaminophen OR acetaminophen, dextrose, dextrose, glucagon (rDNA), glucose, nitroglycerin, ondansetron ODT OR ondansetron, polyethylene glycol (PEG) 3350 Diagnostic Workup: I reviewed pertinent Laboratory results, Radiographic results, and Other Clinical Notes at the timeof today's encounter. Labs: No components found for: LABA1C No components found for: EAG Lab Results Component Value Date NA 133 (L) 06/28/2023 K 5.0 06/28/2023 CL 102 06/28/2023 CO2 24 06/28/2023 BUN 20 06/28/2023 CREATININE 0.64 06/28/2023 GLUCOSE 194 (H) 06/28/2023 CALCIUM 9.1 06/28/2023 Lab Results Component Value Date CHLPL 125 08/29/2020 Lab Results Component Value Date TRIG 190 08/29/2020 Lab Results Component Value Date HDL 31 (A) 08/29/2020 Lab Results Component Value Date LDLCALC 56 08/29/2020 Lab Results Component Value Date VLDL 38 08/29/2020 No results found for: CHOLHDLRATIO No results found for: [id number] Lab Results Component Value Date TSH 2.356 11/26/2020 Radiology reportsas per the Radiologist Radiology: ECG 12 lead Result Date: 06/28/2023 Sinus tachycardia Nonspecific IVCD with LAD Left ventricular hypertrophy Minimal ST elevation, anterolateral leads Electronically Signed On 06-28-2023 5:20:13 EDT by Rosaura Mustafa CT chest angiogram w and/or wo IV contrast Result Date: 06/28/2023 [facility] 1965 [id number] Exam Date/Time: 06/28/2023 03:49 Procedure: CT CHEST ANGIOGRAM W AND/OR WO IV CONTRAST Ordering Provider: MUSTAFA KATHRYN Reason For Exam: CP, history of DVT not on anticoagulation, 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 COMPARISON: None Technique: [address] images were obtained of the chest after the uneventful IV administration of 75 mL of Isovue-370. Image acquisition was timed for maximal opacification of the pulmonary arteries. Images were reformatted in coronal and sagittal projections. 3D reformats were generated concurrently by myself on a separate workstation to better visualize the gross vascular anatomy. Dose reduction was employed using automatic exposure control. FINDINGS: Pulmonary arteries: There is very suboptimal opacification of the pulmonary arteries. This study is essentially nondiagnostic for evaluation of segmental and subsegmental pulmonary emboli. Given these limitations, no large central filling defects are identified. Lungs: 7 mm nodule anterior lateral right middle lobe (4:139). No areas of consolidation. The tracheobronchial tree remains patent. Pleura: No pleural effusion Heart/Great vessels: The heart is normal in size with no pericardial effusion. The aorta and pulmonary arteries are normal in caliber. Mediastinum/Peggy: There are no enlarged mediastinal, hilar, or axillary lymph nodes. Thyroid and Esophagus: Normal Visualized Upper Abdomen: Normal Chest wall/Lower neck: Normal Bones: Multilevel flowing osteophytes consistent with DISH. Suboptimal opacification of the pulmonary arteries. This study is nondiagnostic for evaluation of segmental and subsegmental pulmonary embolus. Given these limitations, no large central filling defects identified. No areas of consolidation or effusion. 7 mm nodule right middle lobe. There are no prior studies for comparison. Per the 2017 Soraida society guidelines for incidentally discovered solitary pulmonary nodule (6-8mm): LOW RISK PATIENT: repeat scan in 6 to 12 months, then [address]ER CT in18-24 months HIGH RISK PATIENT: repeat CT scan at 6-[address] in 18-24 months. 2017 - UPDATED [employer] SOC[employer] GUIDELINES FOR MANAGEMENT OF SMALL PULMONARY NODULES DETECTED ON CT Note: Recommendations do not apply for lung cancer screening, patients with immunosuppression or with known cancer. Dimensions are average of long and short axis rounded to the millimeter SOLITARY NODULE: LOW RISK PATIENT <6mm - No follow up 6-8mm - 6-12 months, then consider 18-24 months >8mm - P ET/CT, Bx or followup in 3 months SOLITARY NODULE: HIGH RISK PATIENT <6mm - Optional 6-12 months(suspicious morphology or upper lobe) 6-8mm - 6-12 months, then 18-24 months >8mm - PET/CT, Bx or followup in 3 months MULTIPLE NODULES: LOW RISK PATIENT (Use most suspicious nodule to manage guidelines) All <6mm - No follow up Any >6mm - 3-6 months, then consider 18-24 months MULTIPLE NODULES: HIGH RISK PATIENT (Use most suspicious nodule to manage guidelines) All <6mm - No follow upAny >6mm - 3-6 months, then 18-24 months SUBSOLID NODULE: SINGLE GROUND GLASS OPACITY <6mm - No follow up 6mm or greater - 6-12 months, then every 2 years until 5 years SUBSOLID NODULE: PART SOLID <6mm - No follow up 6mm or greater - 3-6 months, then if solid component <6mm and unchanged every year until 5 years MULTIPLE SUBSOLID NODULES: All <6mm - 3-6 months, then if stable 24 and 48 months 6mm or greater - 3-6 months, subsequent management based upon most suspicious nodule Report Dictated on Electronically Signed By: Chucho Stringer MD Electronically Signed Date/Time: 06/28/2023 4:37 AM EDT XR chest 1 view Result Date: 06/28/2023 Patient Name: WILL JACINTO : 1965 Exam Date/Time: 06/28/2023 03:08 Procedure: XR CHEST 1 VIEW Ordering Provider: MUSTAFA KATHRYN Reason For Exam: CHEST PAIN CLINICAL INDICATION: CHEST PAIN COMPARISON: 12/08/2020 TECHNIQUE: Single portable AP radiograph of the chest. FINDINGS: LUNGS/PLEURA:Lung volumes are low. No areas of consolidation or effusion. Trachea is midline. No pneumothorax. MEDIASTINUM:Heart size and mediastinal contours are normal. VASCULARITY: Normal BONES:Unremarkable SUPPORT LINES: None OTHER: Low lung volumes. No acute infiltrate or effusion. Report Dictated on Electronically Signed By: Chucho Stringer MD Electronically Signed Date/Time: 06/28/2023 3:08 AM EDT History/Other: 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 other toe(s), unspecified side (HCC) Anxiety disorder Bipolar 1 disorder (HCC) Blood circulation, collateral Cellulitis chronic L lower leg COVID 12/08/2021 Depression Diabetes mellitus (HCC) Type II, on insulin Disease of blood and blood forming organ Endometrial carcinoma (HCC) 11/25/2020 Endometrial hyperplasia Foot ulcer (HCC) Hx of blood clots RLE prior to amputation Hyperlipidemia Hypertension Lymphedema 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, RLE Morbidly obese (HCC) Muscle weakness Osteomyelitis (HCC) Osteomyelitis (HCC) 2019 RLE Other lack of coordination Other specified soft tissue disorders Other symbolic dysfunctions Schizophrenia (HCC) Sleep apnea no CPAP Venous insufficiency Past Surgical History: Past Surgical History: Procedure Laterality Date ABCESS DRAINAGE Right 09/09/2018 FOOT; ACH COLONOSCOPY 09/19/[address] Hyde DILATION AND CURETTAGE OF UTERUS 05/18/2019 HYSTEROSCOPY 12/23/2021 LEG AMPUTATION THROUGH KNEE Right 06/16/2019 WISDOM TOOTH EXTRACTION Allergy(ies): No Known Allergies Family History: No family history on file. Social History: Social History Tobacco Use Smoking status: Never Smokeless tobacco: Never Substance Use Topics Alcohol use: No Drug use: Never I spent 75 minutes with the pt which involved coordination of care, medical evaluation, review of records, and/or counseling of the pt regarding his/her condition/disease state/prognosis on the date of this note. * Supriya Baeza MD - 06/28/2023 9:16 AM EDTAssociated Order(s): IP CONSULT TO CARDIOLOGY [facility] CARDIOLOGY CONSULTATION Patient Name: Will Jacinto : 1965 Date of Service: 06/28/23 Reason for Consultation: Chest pain, nausea History Will Jacinto is a 57 y.o.year-old transgender F-to-M adult with no prior cardiac history. Thepatient has seen Dr. Puga once in the past in late 2020 for preoperative evaluation prior to hysterectomy. The patient has multiple cardiovascular risk factors including obesity, diabetes, hypertension and hyperlipidemia. The patient presented with nausea beginning around 5 PM yesterday accompanied by upper chest pressure. Cardiac enzymes are negative. Twelve-lead EKG is nonischemic and shows sinus tachycardia with LVH. The patient is a limited historian. He is unable to further characterize the chest discomfort. He does not have chest discomfort or dyspnea with other activities however is very limited. He has prioramputation and gets around in a wheelchair, requires a Deedee lift for transfers. Currently he stillhas a mild feeling of nausea and no chest discomfort. Impression and Recommendations Chest discomfort. Vague and poorly characterized, possibly just an extension of epigastric discomfort and nausea. There is no objective evidence of ACS. While he does have risk factors, there is no clear symptomatology or other immediate indication for testing. Given body habitus, accuracy of testing will be limitedand thus possibility of false positives should be taken into consideration. I would not recommend further evaluation unless there is more clear-cut evidence of ischemia. I will defer to the primary service with regard to nausea work-up. 2. Hypertension. Continue home regimen. Aggressive primary prevention of cardiovascular events is indicated given multiple risk factors. Supriya Baeza MD Data Collection Cardiac Testin06/28/23 ECG 12-LEAD 06/28/2023 5:20 AM (Final) Impression Sinus tachycardia Nonspecific IVCD with LAD Left ventricular hypertrophy Minimal ST elevation, anterolateral leads Electronically Signed On 06-28-2023 5:20:13 EDT by Rosaura Mustafa Signed by: Rosaura Mustafa DO on 06/28/2023 5:20 AM 09/17/20 Echo attempt: CONCLUSIONS SUMMARY: Procedure narrative: Image quality was uninterpretable. The study was technically limited due to poor acoustic window availability, body habitus, off axis, and supine position. Past Medical History: has a past medical history of Abnormal uterine bleeding (AUB), Above knee amputation of right lowerextremity (HCC), Acquired absence of other toe(s), unspecified side (HCC), Anxiety disorder, Bipolar 1 disorder ([facility]), Blood circulation, collateral, Cellulitis, COVID (12/08/2021), Depression, Diabetes mellitus ([facility]), Disease of blood and blood forming organ, Endometrial carcinoma (HCC) (11/25/2020), Endometrial hyperplasia, Foot ulcer ([facility]), blood clots, Hyperlipidemia, Hypertension, Lymphedema,MDRO (multiple drug resistant organisms) resistance, Morbidly obese ([facility]), Muscle weakness, Osteomyelitis ([facility]), Osteomyelitis ([facility]) (2019), Other lack of coordination, Other specified soft tissue disorders, Other symbolic dysfunctions, Schizophrenia ([facility]), Sleep apnea, and Venous insufficiency. He has no past medical history of Arthritis, Asthma, CAD (coronary artery disease), Cerebral arteryocclusion with cerebral infarction ([facility]), CHF (congestive heart failure) ([facility]) ([facility]), Chronic kidney disease, COPD (chronic obstructive pulmonary disease) ([facility]), GERD (gastroesophageal reflux disease), Hemodialysis patient ([facility]) ([facility]), History of blood transfusion, Liver disease, Movement disorder, Neuromuscular disorder ([facility]), Other disorders of kidney and ureter in diseases classified elsewhere, Pneumonia, Seizures ([facility]), or Thyroid disease. SurgicalHistory: has a past surgical history that includes [place] tooth extraction; Dilation and curettage of uterus(05/18/2019); Abscess drainage (Right, 09/09/2018); Leg amputation through knee (Right, 06/16/2019); Colonoscopy (09/19/2020); and Hysteroscopy (12/23/2021). Social History: reports that he has never smoked. He has never used smokeless tobacco. He reports that he does not drink alcohol and does not use drugs. Family History: family history is not on file. HomeMedications: Prior to Admission medications Medication Sig Start Date End Date Taking? Authorizing Provider ARIPiprazole (Abilify) 10 MG tablet Every 24 hours. Historical Provider, aspirin 81 MG EC tablet Take 1 tablet by mouth daily. 10/08/21 Historical Provider, atorvastatin (Lipitor) 10 MG tablet Take 1 tablet by mouth daily. 11/26/20 Historical Provider, dilTIAZem CD (Cardizem CD) 180 MG 24 hr capsule Take 180 mg by mouth daily. Historical Provider, dulaglutide (Trulicity) 4.5 MG/0.5ML solution pen-injector Inject 4.5 mg under the skin 1 (one) time per week. Historical Provider, FLUoxetine (PROzac) 40 MG capsule Take 40 mg by mouth daily. Historical Provider, gabapentin (Neurontin) 100 MG capsule Take 100 mg by mouth in the morning and 100 mg before bedtime. Historical Provider, insulin regular (HumuLIN R U-500 KWIKMACKENZIE) 500 UNIT/ML CONCENTRATED injection Inject under the skin 3 times daily. 285 units before breakfast/260 units before lunch/285 units before dinner Historical Provider, Lactobacillus Acid-Pectin (Acidophilus/Rosemead Pectin) tablet Take 1 tablet by mouth in the morning and 1 tablet in the evening. Historical Provider, lisinopril 40 MG tablet Every 24 hours. Historical Provider, Loratadine 10 MG capsule Take by mouth. Historical Provider, magnesium hydroxide (Milk of Magnesia Concentrate) 2400 MG/10ML suspension suspension Every 24 hours. Historical Provider, megestrol (Megace) 20 MG tablet Take 1 tablet by mouth in the morning and 1 tablet before bedtime. 08/13/21 Historical ProviderMD metoclopramide (Reglan) 10 MG tablet Take 1 tablet (10 mg) by mouth in the morning and 1 tablet (10mg) at noon and 1 tablet (10 mg) in the evening and 1 tablet (10 mg) before bedtime. Do all this for 7 days. 03/08/23 03/15/23 Jocelyn Santos MD metoprolol tartrate (Lopressor) 25 MG tablet Take 1 tablet by mouth in the morning and 1 tablet before bedtime. 11/28/20 Historical ProviderMD miconazole (Micotin) 2 % powder Apply topically 2 times daily. 11/25/20 Historical ProviderMD ondansetron (Zofran) 4 MG tablet Take 8 mg by mouth. 12/08/20 Historical ProviderMD pantoprazole (ProtoNix) 40 MG EC tablet Take 40 mg by mouth. 11/26/20 Historical Provider, polyethylene glycol, PEG, 3350 (Glycolax) 17 GM/SCOOP powder Take 17 g by mouth daily. Historical Provider, potassium chloride CR (K-Tab) 20 MEQ ER tablet Every 24 hours. Historical Provider, simvastatin (Zocor) 20 MG tablet Every 24 hours. 06/28/23 Historical ProviderMD Scheduled medications: acidophilus lactobacillus, 1 capsule, Oral, BID ARIPiprazole, 10 mg, Oral, Daily aspirin, 81 mg, Oral, Daily atorvastatin, 10 mg, Oral, Daily cetirizine, 10 mg, Oral, Daily dilTIAZem CD, 180 mg, Oral, Daily dulaglutide, 4.5 mg, SubCUTAneous, Weekly enoxaparin, 40 mg, SubCUTAneous, Daily FLUoxetine, 40 mg, Oral, Daily gabapentin, 100 mg, Oral, BID insulin regular, 285 Units, SubCUTAneous, TID lisinopril, 40 mg, Oral, q24h megestrol, 20 mg, Oral, BID metoclopramide, 10 mg, Oral, 4x daily metoprolol tartrate, 25 mg, Oral, BID miconazole, , Topical, BID pantoprazole, 40 mg, Oral, qAM AC polyethylene glycol (PEG) 3350, 17 g, Oral, Daily potassium chloride, 20 mEq, Oral, q24h Allergies: Patient has no known allergies. Other relevant review of systems: Review of Systems Unable to perform ROS: Psychiatric disorder Physical Exam: Vitals: 06/28/23 0217 06/28/23 0535 06/28/23 0607 BP: (!) 172/84 (!) 175/73 (!) 174/91 BP Location: Left arm Left arm Patient Position: Sitting Sitting Pulse: 107 107 (!) 111 Resp: Temp: 36.7 C (98 F) 36.7 C (98 F) TempSrc: Oral Temporal SpO2: 96% 95% 95% No intake or output data in the 24 hours ending 06/28/23 0916 Wt Readings from Last 4 Encounters: 03/08/23 (!) 335 lb (152 kg) 11/13/19 (!) 341 lb (155 kg) 09/20/19 (!) 334 lb (152 kg) Physical Exam Vitals reviewed. Constitutional: General: He is not in acute distress. Appearance: He is obese. HENT: Mouth/Throat: Dentition: Abnormal dentition. Eyes: General: No scleral icterus. Conjunctiva/sclera: Conjunctivae normal. Cardiovascular: Rate and Rhythm: Normal rate. Heart sounds: S1 normal and S2 normal. No murmur heard. No gallop. Pulmonary: Effort: Pulmonary effort is normal. Breath sounds: Normal breath sounds. No wheezing or rales. Abdominal: General: Abdomen is protuberant. There is no distension. Palpations: Abdomen is soft. There is no shifting dullness. Tenderness: There is no abdominal tenderness. Musculoskeletal: Left lower le+ Edema (erythema, scaling, changes of lymphedema) present. Right Lower Extremity: Right leg is amputated above knee. Skin: General: Skin is warm and dry. Neurological: Mental Status: He is alert. Psychiatric: Mood and Affect: Mood normal. Affect is flat. Pertinent Labs: Lab Results Component Value Date GLUCOSE 194 (H) 06/28/2023 CALCIUM 9.1 06/28/2023 NA 133 (L) 06/28/2023 K 5.0 06/28/2023 CO2 24 06/28/2023 CL 102 06/28/2023 BUN 20 06/28/2023 CREATININE 0.64 06/28/2023 Lab Results Component Value Date WBC 11.8 (H) 06/28/2023 HGB 11.6 (L) 06/28/2023 HCT 35.1 06/28/2023 MCV 82.3 06/28/2023 PLT 384 06/28/2023 Lab Results Component Value Date TROPONINI <0.012 06/28/2023 Lab Results Component Value Date HGBA1C 10.1 (H) 02/09/2023 Lab Results Component Value Date TSH 2.356 11/26/2020 No results found for: CHOL Lab Results Component Value Date HDL 31 (A) 08/29/2020 Lab Results Component Value Date LDLCALC 56 08/29/2020 Lab Results Component Value Date TRIG 190 08/29/2020 No results found for: CHOLHDL Radiology: === 06/28/23 === XR CHEST 1 VIEW - Impression - Low lung volumes. No acute infiltrate or effusion. documented in this [facility]08-21-2023 Consult note* Geronimo Lee MD - 06/28/2023 10:45 AM EDTAssociated Order(s): IP CONSULT TO ENDOCRINOLOGY Department of Internal Medicine Division of Endocrinology, Diabetes, & Metabolism Endocrinology Note Patient Name: Will Jacinto : 1965 AGE: 57 y.o. [facility] B Admission Date: 06/28/2023 Visit Date: 06/28/2023 Reason for Endocrine Consult: dm2 Provider/Team Requesting Consult: Dr. Hill PCP: Jared Guzman Outpt District Sales Coordinator: Dr. Jesus psear endo ASSESSMENT: DM 2 poor control Cheat pain nausea Pmhx Aka Bipolar disorder Cellulitis Covid Depression Dm2 severe insulin resistance Endometrial cancer Hlp Htn Schizophrenia Osteomylelits John PLAN: Given anticipated decreased diet Would decrease insulin doses from previous Use NPH 85 units am and bed Hlog 45 units meals High dose ss hlog meals not bed Convert to u500 on discharge Discussed with patient detection, monitoring, management, and prevention of hypoglycemia ICU goal <180 GMF goal <150 POCT ACHS Hypoglycemia per protocol Carb controlled diet ANTICIPATED ENDOCRINE HOME GOING RECOMMENDATIONS: Optimized for Discharge from Endocrine standpoint: No Home Going Endocrine Rx Recommendations-- U500 insulin doses to be determined Outpt Follow Up-- [facility] endo Dr. Lee SUBJECTIVE/HPI: CHIEF COMPLAINT: Chief Complaint Patient presents with Chest Pain Vomiting The patient presented with chest pain and nausea. Pmhx Aka Bipolar disorder Cellulitis Covid Depression Dm2 severe insulin resistance Endometrial cancer Hlp Htn Schizophrenia Osteomylelits John Type of DM: 2 Onset of DM: 1991 Home DM Medication Regimen: u500 285 units meals DM control (last A1c/glucose data): Latest Reference Range & Units 11/23/20 03:51 07/20/22 00:00 02/09/23 10:22 HEMOGLOBIN A1C - QUEST <5.7 % of total Hgb 10.0 ! 10.1 ! (E) 10.1 (H) !: Data is abnormal (H): Data is abnormally high (E): External lab result Current therapy for diabetes in hospital: Clear liquid diet U500 insulin 285 units with meals Blood glucose 167- 247 Current appetite poor Glucose Date/Time Value Ref Range Status 06/28/2023 06:15 AM 247 (H) 70 - 100 mg/dL Final 03/08/2023 01:14 PM 167 (H) 70 - 100 mg/dL Final Glucose Blood, POC Date/Time Value Ref Range Status 12/23/2021 10:51 AM 122 (H) 70 - 100 mg/dL Final Comment: Test performed by glucose meter. Results may be 10%-15% lower than serum/plasma values. (CLIA ID [id number]) 12/23/2021 07:28 AM 107 (H) 70 - 100 mg/dL Final Comment: Test performed by glucose meter. Results may be 10%-15% lower than serum/plasma values. (CLIA ID [id number]) 11/28/2020 04:54 PM 111 (H) 70 - 100 mg/dL Final Comment: Test performed by glucose meter. Results may be 10%-15% lower than serum/plasma values. (CLIA ID [id number]) 11/28/2020 10:18 AM 166 (H) 70 - 100 mg/dL Final Comment: Test performed by glucose meter. Results may be 10%-15% lower than serum/plasma values. (CLIA ID [id number]) 11/28/2020 07:57 AM 215 (H) 70 - 100 mg/dL Final Comment: Test performed by glucose meter. Results may be 10%-15% lower than serum/plasma values. (CLIA ID [id number]) 11/27/2020 09:08 PM 91 70 - 100 mg/dL Final Comment: Test performed by glucose meter. Results may be 10%-15% lower than serum/plasma values. (CLIA ID [id number]) Review of Systems Constitutional: Positive for appetite change and fatigue. Negative for activity change. HENT: Negative for trouble swallowing and voice change. Gastrointestinal: Positive for nausea. Negative for abdominal pain, diarrhea and vomiting. Endocrine: Negative for cold intolerance and heat intolerance. Genitourinary: Negative for hematuria. Neurological: Positive for weakness. Psychiatric/Behavioral: Positive for sleep disturbance. The patient is nervous/anxious. OBJECTIVE: Vitals: 06/28/23 0217 06/28/23 0535 06/28/23 0607 BP: (!) 172/84 (!) 175/73 (!) 174/91 BP Location: Left arm Left arm Patient Position: Sitting Sitting Pulse: 107 107 (!) 111 Resp: Temp: 36.7 C (98 F) 36.7 C (98 F) TempSrc: Oral Temporal SpO2: 96% 95% 95% Physical Exam Vitals reviewed. Constitutional: General: He is not in acute distress. Appearance: Normal appearance. He is obese. He is not ill-appearing. Eyes: General: No scleral icterus. Right eye: No discharge. Left eye: No discharge. Cardiovascular: Rate and Rhythm: Normal rate and regular rhythm. Pulses: Normal pulses. Heart sounds: Normal heart sounds. No murmur heard. No friction rub. Pulmonary: Effort: Pulmonary effort is normal. No respiratory distress. Breath sounds: Normal breath sounds. No stridor. No wheezing or rhonchi. Musculoskeletal: Cervical back: Normal range of motion and neck supple. No rigidity or tenderness. Comments: aka Skin: General: Skin is warm and dry. Coloration: Skin is not jaundiced or pale. Neurological: General: No focal deficit present. Mental Status: He is alert and oriented to person, place, and time. Cranial Nerves: No cranial nerve deficit. Sensory: No sensory deficit. Psychiatric: Mood and Affect: Mood normal. Behavior: Behavior normal. 24 hour intake/output:No intake or output data in the 24 hours ending 06/28/23 1045 Diet: Adult diet Clear liquid Medications (as per EMR): HomeMeds: Current Outpatient Medications Medication Instructions ARIPiprazole (Abilify) 10 MG tablet Every 24 hours aspirin 81 MG EC tablet 1 tablet, Oral, Daily atorvastatin (Lipitor) 10 MG tablet 1 tablet, Oral, Daily dilTIAZem CD (CARDIZEM CD) 180 mg, Oral, Daily dulaglutide (TRULICITY) 4.5 mg, SubCUTAneous, Weekly FLUoxetine (PROZAC) 40 mg, Oral, Daily gabapentin (NEURONTIN) 100 mg, Oral, 2 times daily insulin regular (HumuLIN R U-500 KWIKPEN) 500 UNIT/ML CONCENTRATED injection SubCUTAneous, 3 times daily, 285 units before breakfast/260 units before lunch/285 units before dinner Lactobacillus Acid-Pectin (Acidophilus/Rosemead Pectin) tablet 1 tablet, Oral, 2 times daily lisinopril 40 MG tablet Every 24 hours Loratadine 10 MG capsule Oral magnesium hydroxide (Milk of Magnesia Concentrate) 2400 MG/10ML suspension suspension Every 24 hours megestrol (Megace) 20 MG tablet 1 tablet, Oral, 2 times daily metoclopramide (REGLAN) 10 mg, Oral, 4 times daily metoprolol tartrate (Lopressor) 25 MG tablet 1 tablet, Oral, 2 times daily miconazole (Micotin) 2 % powder Topical, 2 times daily ondansetron (ZOFRAN) 8 mg, Oral pantoprazole (PROTONIX) 40 mg, Oral polyethylene glycol (PEG) 3350 (GLYCOLAX) 17 g, Oral, Daily potassium chloride CR (K-Tab) 20 MEQ ER tablet Every 24 hours Scheduled Meds:acidophilus lactobacillus, 1 capsule, Oral, BID ARIPiprazole, 10 mg, Oral, Daily aspirin, 81 mg, Oral, Daily atorvastatin, 10 mg, Oral, Daily cetirizine, 10 mg, Oral, Daily dilTIAZem CD, 180 mg, Oral, Daily dulaglutide, 4.5 mg, SubCUTAneous, Weekly enoxaparin, 40 mg, SubCUTAneous, Daily FLUoxetine, 40 mg, Oral, Daily gabapentin, 100 mg, Oral, BID insulin regular, 285 Units, SubCUTAneous, TID lisinopril, 40 mg, Oral, q24h megestrol, 20 mg, Oral, BID metoclopramide, 10 mg, Oral, 4x daily metoprolol tartrate, 25 mg, Oral, BID miconazole, , Topical, BID pantoprazole, 40 mg, Oral, qAM AC polyethylene glycol (PEG) 3350, 17 g, Oral, Daily potassium chloride, 20 mEq, Oral, q24h Continuous Infusions:sodium chloride, 75 mL/hr PRN Meds:PRN medications: acetaminophen OR acetaminophen, dextrose, dextrose, glucagon (rDNA), glucose, nitroglycerin, ondansetron ODT OR ondansetron, polyethylene glycol (PEG) 3350 Diagnostic Workup: I reviewed pertinent Laboratory results, Radiographic results, and Other Clinical Notes at the timeof today's encounter. Labs: No components found for: LABA1C No components found for: EAG Lab Results Component Value Date NA 133 (L) 06/28/2023 K 5.0 06/28/2023 CL 102 06/28/2023 CO2 24 06/28/2023 BUN 20 06/28/2023 CREATININE 0.64 06/28/2023 GLUCOSE 194 (H) 06/28/2023 CALCIUM 9.1 06/28/2023 Lab Results Component Value Date CHLPL 125 08/29/2020 Lab Results Component Value Date TRIG 190 08/29/2020 Lab Results Component Value Date HDL 31 (A) 08/29/2020 Lab Results Component Value Date LDLCALC 56 08/29/2020 Lab Results Component Value Date VLDL 38 08/29/2020 No results found for: CHOLHDLRATIO No results found for: [id number] Lab Results Component Value Date TSH 2.356 11/26/2020 Radiology reportsas per the Radiologist Radiology: ECG 12 lead Result Date: 06/28/2023 Sinus tachycardia Nonspecific IVCD with LAD Left ventricular hypertrophy Minimal ST elevation, anterolateral leads Electronically Signed On 06-28-2023 5:20:13 [address]T [address] Rosaura Must[address] CT chest angiogram w and/or wo IV contrast Result Date: 06/28/2023 Patient Name: WILL JACINTO : 1965 Exam Date/Time: 06/28/2023 03:49 Procedure: CT CHEST ANGIOGRAM W AND/OR WO IV CONTRAST Ordering Provider: MUSTAFA KATHRYN Reason For Exam: CP, history of DVT not on anticoagulation, 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 COMPARISON: None Technique: [address] images were obtained of the chest after the uneventful IV administration of 75 mL of Isovue-370. Image acquisition was timed for maximal opacification of the pulmonary arteries. Images were reformatted in coronal and sagittal projections. 3D reformats were generated concurrently by myself on a separate workstation to better visualize the gross vascular anatomy. Dose reduction was employed using automatic exposure control. FINDINGS: Pulmonary arteries: There is very suboptimal opacification of the pulmonary arteries. This study is essentially nondiagnostic for evaluation of segmental and subsegmental pulmonary emboli. Given these limitations, no large central filling defects are identified. Lungs: 7 mm nodule anterior lateral right middle lobe (4:139). No areas of consolidation. The tracheobronchial tree remains patent. Pleura: No pleural effusion Heart/Great vessels: The heart is normal in size with no pericardial effusion. The aorta and pulmonary arteries are normal in caliber. Mediastinum/Peggy: There are no enlarged mediastinal, hilar, or axillary lymph nodes. Thyroid and Esophagus: Normal Visualized Upper Abdomen: Normal Chest wall/Lower neck: Normal Bones: Multilevel flowing osteophytes consistent with DISH. Suboptimal opacification of the pulmonary arteries. This study is nondiagnostic for evaluation of segmental and subsegmental pulmonary embolus. Given these limitations, no large central filling defects identified. No areas of consolidation or effusion. 7 mm nodule right middle lobe. There are no prior studies for comparison. Per the 2017 [employer] society guidelines for incidentally discovered solitary pulmonary nodule (6-8mm): LOW RISK PATIENT: repeat scan in 6 to 12 months, then [address] in18-24 months HIGH RISK PATIENT: repeat CT scan at 6-[address] in 18-24 months. 2017 - UPDATED [employer] SOC[employer]ET[employer] GUIDELINES FOR MANAGEMENT OF SMALL PULMONARY NODULES DETECTED ON CT Note: Recommendations do not apply for lung cancer screening, patients with immunosuppression or with known cancer. Dimensions are average of long and short axis rounded to the millimeter SOLITARY NODULE: LOW RISK PATIENT <6mm - No follow up 6-8mm - 6-12 months, then consider 18-24 months >8mm - P ET/CT, Bx or followup in 3 months SOLITARY NODULE: HIGH RISK PATIENT <6mm - Optional 6-12 months(suspicious morphology or upper lobe) 6-8mm - 6-12 months, then 18-24 months >8mm - PET/CT, Bx or followup in 3 months MULTIPLE NODULES: LOW RISK PATIENT (Use most suspicious nodule to manage guidelines) All <6mm - No follow up Any >6mm - 3-6 months, then consider 18-24 months MULTIPLE NODULES: HIGH RISK PATIENT (Use most suspicious nodule to manage guidelines) All <6mm - No follow upAny >6mm - 3-6 months, then 18-24 months SUBSOLID NODULE: SINGLE GROUND GLASS OPACITY <6mm - No follow up 6mm or greater - 6-12 months, then every 2 years until 5 years SUBSOLID NODULE: PART SOLID <6mm - No follow up 6mm or greater - 3-6 months, then if solid component <6mm and unchanged every year until 5 years MULTIPLE SUBSOLID NODULES: All <6mm - 3-6 months, then if stable 24 and 48 months 6mm or greater - 3-6 months, subsequent management based upon most suspicious nodule Report Dictated on Electronically Signed By: Chucho Stringer MD Electronically Signed Date/Time: 06/28/2023 4:37 AM EDT XR chest 1 view Result Date: 06/28/2023 Patient Name: WILL JACINTO : 1965 Exam Date/Time: 06/28/2023 03:08 Procedure: XR CHEST 1 VIEW Ordering Provider: MUSTAFA KATHRYN Reason For Exam: CHEST PAIN CLINICAL INDICATION: CHEST PAIN COMPARISON: 12/08/2020 TECHNIQUE: Single portable AP radiograph of the chest. FINDINGS: LUNGS/PLEURA:Lung volumes are low. No areas of consolidation or effusion. Trachea is midline. No pneumothorax. MEDIASTINUM:Heart size and mediastinal contours are normal. VASCULARITY: Normal BONES:Unremarkable SUPPORT LINES: None OTHER: Low lung volumes. No acute infiltrate or effusion. Report Dictated on Electronically Signed By: Chucho Stringer MD Electronically Signed Date/Time: 06/28/2023 3:08 AM EDT History/Other: 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 other toe(s), unspecified side ([facility]) Anxiety disorder Bipolar 1 disorder ([facility]) Blood circulation, collateral Cellulitis chronic L lower leg COVID 12/08/2021 Depression Diabetes mellitus ([facility]) Type II, on insulin Disease of blood and blood forming organ Endometrial carcinoma ([facility]) 11/25/2020 Endometrial hyperplasia Foot ulcer ([facility]) Hx of blood clots RLE prior to amputation Hyperlipidemia Hypertension Lymphedema 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, RLE Morbidly obese ([facility]) Muscle weakness Osteomyelitis ([facility]) Osteomyelitis ([facility]) 2019 RLE Other lack of coordination Other specified soft tissue disorders Other symbolic dysfunctions Schizophrenia ([facility]) Sleep apnea no CPAP Venous insufficiency Past Surgical History: Past Surgical History: Procedure Laterality Date ABCESS DRAINAGE Right 09/09/2018 FOOT; ACH COLONOSCOPY 09/19/[address] Hyde DILATION AND CURETTAGE OF UTERUS 05/18/2019 HYSTEROSCOPY 12/23/2021 LEG AMPUTATION THROUGH KNEE Right 06/16/2019 WISDOM TOOTH EXTRACTION Allergy(ies): No Known Allergies Family History: No family history on file. Social History: Social History Tobacco Use Smoking status: Never Smokeless tobacco: Never Substance Use Topics Alcohol use: No Drug use: Never I spent 75 minutes with the pt which involved coordination of care, medical evaluation, review of records, and/or counseling of the pt regarding his/her condition/disease state/prognosis on the date of this note. [employer] Phone: 1(874) 850-807308-21-2023 Note* Care Coordination - Herber Armando RN - 06/28/2023 10:12 AM EDT Care Managment Initial Assessment Date: 06/28/2023 Patient Name: Will Jacinto : 1965 Patient Information Source of Information: Patient Cognition/Language: WFL - Within Functional Limits Permission given to speak with patient scheduling representative/caregiver as indicated: Yes (Jovana Quesada ([place]) [phone]) Confirmation of Payer with patient/family: Yes Payer Name: [facility] Golden: No Confirmation of Primary Care Physician: Confirmed PCP Name: Jared Guzman Seen in last 2 years?: Yes Primary Caregiver: Other (Comment) ([facility] staff) If assistance needed, confirmed caregiver ready, willing and able to care for patient at discharge:Yes Confirmed with: Patient states staff from [facility] Living Arrangements Current Residence: ([facility]) Number of Floors Number of Entry Steps: Bed/Bath Levels: Facility: [facility] Facility Name: [facility] Plan to Return: Yes Lives with: Support Systems: Family members Activities of Daily Living Ambulation: Total Care (wheelchair) Bathing/Dressing: Total Care Elimination/Continence/Toileting: Assistance Feeding: Independent Who Assists with Activities of Daily Living: Staff from [facility] Instrumental Activities of Daily Living Prescription Coverage: Yes Pharmacy Used: Pharmacy through [facility] Medication Management: Assistance Type: Dose packaging system Who assists with medication securing and setup?: [facility] staff Transportation/Shopping: Assistance Provider Transportation Mode: Needs Assistance with Transportation at Discharge: No Meal Preparation: Assistance Provider Meal Prep Assistance Provider Name: [facility] staff Laundry/Cleaning: Assistance Provider Laundry/Cleaning Assistance Provider Name: [facility] staff Finances/Bill Paying: Assistance Provider Finances/Bill Payer Assistance Provider Name: Family Communication: Independent Types of Care Services/Equipment Utilized Care Services: Dialysis Type: NA Durable Medical Equipment: Wheelchair (standard or power) Patient's Goal/Discharge Plan Patient expects to be discharged to: Back to [facility]. Discharge Planning Actions: Continue to follow Patient's Choice Rights and [employer] and Collaborative Relationships Disclosed as Indicated for Post-Acute Care: Interdisciplinary Team Engagement: Social Work Referral for: Additional Information: Spoke with patient at bedside. Introduced self and role. Discharge planning needs discussed. Patient in hospital due to chest pain, nausea. Troponin negative so far. He has a R bka, is wheelchair bound. Lives at [facility] and plans to return. Cardiology consulted. Task sent to [facility] via [facility] to place return referral to [facility]. [facility] will continue to follow. Herber Armando RN [id number] Note* Care Coordination - Herber Armando RN - 06/28/2023 10:12 AM EDT Care Managment Initial Assessment Date: 06/28/2023 Patient Name: Will Jacinto : 1965 Patient Information Source of Information: Patient Cognition/Language: WFL - Within Functional Limits Permission given to speak with patient scheduling representative/caregiver as indicated: Yes (Jovana Quesada ([facility]) [phone]) Confirmation of Payer with patient/family: Yes Payer Name: [facility] Dual Golden: No Confirmation of Primary Care Physician: Confirmed PCP Name: Jared Guzman Seen in last 2 years?: Yes Primary Caregiver: Other (Comment) ([facility] staff) If assistance needed, confirmed caregiver ready, willing and able to care for patient at discharge:Yes Confirmed with: Patient states staff from [facility] Living Arrangements Current Residence: ([facility]) Number of Floors Number of Entry Steps: Bed/Bath Levels: Facility: [facility] Facility Name: [facility] Plan to Return: Yes Lives with: Support Systems: Family members Activities of Daily Living Ambulation: Total Care (wheelchair) Bathing/Dressing: Total Care Elimination/Continence/Toileting: Assistance Feeding: Independent Who Assists with Activities of Daily Living: Staff from [facility] Instrumental Activities of Daily Living Prescription Coverage: Yes Pharmacy Used: Pharmacy through [facility] Medication Management: Assistance Type: Dose packaging system Who assists with medication securing and setup?: [facility] staff Transportation/Shopping: Assistance Provider Transportation Mode: Needs Assistance with Transportation at Discharge: No Meal Preparation: Assistance Provider Meal Prep Assistance Provider Name: [facility] staff Laundry/Cleaning: Assistance Provider Laundry/Cleaning Assistance Provider Name: [facility] staff Finances/Bill Paying: Assistance Provider Finances/Bill Payer Assistance Provider Name: Family Communication: Independent Types of Care Services/Equipment Utilized Care Services: Dialysis Type: NA Durable Medical Equipment: Wheelchair (standard or power) Patient's Goal/Discharge Plan Patient expects to be discharged to: Back to [facility]. Discharge Planning Actions: Continue to follow Patient's Choice Rights and [employer] and Collaborative Relationships Disclosed as Indicated for Post-Acute Care: Interdisciplinary Team Engagement: Social Work Referral for: Additional Information: Spoke with patient at bedside. Introduced self and role. Discharge planning needs discussed. Patient in hospital due to chest pain, nausea. Troponin negative so far. He has a R bka, is wheelchair bound. Lives at [facility] and plans to return. Cardiology consulted. Task sent to [facility] via [facility] to place return referral to [facility]. TCC will continue to follow. Herber Armando RN [id number] Consult note* Supriya Baeza MD - 06/28/2023 9:16 AM EDT Associated Order(s): IP CONSULT TO CARDIOLOGY [facility] CARDIOLOGY CONSULTATION Patient Name: Will Jacinto : 1965 Date of Service: 06/28/23 Reason for Consultation: Chest pain, nausea History Will Jacinto is a 57 y.o.year-old transgender F-to-M adult with no prior cardiac history. Thepatient has seen Dr. Puga once in the past in late 2020 for preoperative evaluation prior to hysterectomy. The patient has multiple cardiovascular risk factors including obesity, diabetes, hypertension and hyperlipidemia. The patient presented with nausea beginning around 5 PM yesterday accompanied by upper chest pressure. Cardiac enzymes are negative. Twelve-lead EKG is nonischemic and shows sinus tachycardia with LVH. The patient is a limited historian. He is unable to further characterize the chest discomfort. He does not have chest discomfort or dyspnea with other activities however is very limited. He has prioramputation and gets around in a wheelchair, requires a Deedee lift for transfers. Currently he stillhas a mild feeling of nausea and no chest discomfort. Impression and Recommendations Chest discomfort. Vague and poorly characterized, possibly just an extension of epigastric discomfort and nausea. There is no objective evidence of ACS. While he does have risk factors, there is no clear symptomatology or other immediate indication for testing. Given body habitus, accuracy of testing will be limitedand thus possibility of false positives should be taken into consideration. I would not recommend further evaluation unless there is more clear-cut evidence of ischemia. I will defer to the primary service with regard to nausea work-up. 2. Hypertension. Continue home regimen. Aggressive primary prevention of cardiovascular events is indicated given multiple risk factors. Supriya Baeza MD Data Collection Cardiac Testin06/28/23 ECG 12-LEAD 06/28/2023 5:20 AM (Final) Impression Sinus tachycardia Nonspecific IVCD with LAD Left ventricular hypertrophy Minimal ST elevation, anterolateral leads Electronically Signed On 06-28-2023 5:20:13 EDT by Rosaura Mustafa Signed by: Rosaura Mustafa DO on 06/28/2023 5:20 AM 09/17/20 Echo attempt: CONCLUSIONS SUMMARY: Procedure narrative: Image quality was uninterpretable. The study was technically limited due to poor acoustic window availability, body habitus, off axis, and supine position. Past Medical History: has a past medical history of Abnormal uterine bleeding (AUB), Above knee amputation of right lowerextremity (HCC), Acquired absence of other toe(s), unspecified side (HCC), Anxiety disorder, Bipolar 1 disorder (HCC), Blood circulation, collateral, Cellulitis, COVID (12/08/2021), Depression, Diabetes mellitus ([facility]), Disease of blood and blood forming organ, Endometrial carcinoma (HCC) (11/25/2020), Endometrial hyperplasia, Foot ulcer ([facility]), blood clots, Hyperlipidemia, Hypertension, Lymphedema,MDRO (multiple drug resistant organisms) resistance, Morbidly obese ([facility]), Muscle weakness, Osteomyelitis ([facility]), Osteomyelitis ([facility]) (2019), Other lack of coordination, Other specified soft tissue disorders, Other symbolic dysfunctions, Schizophrenia ([facility]), Sleep apnea, and Venous insufficiency. He has no past medical history of Arthritis, Asthma, CAD (coronary artery disease), Cerebral arteryocclusion with cerebral infarction ([facility]), CHF (congestive heart failure) ([facility]) ([facility]), Chronic kidney disease, COPD (chronic obstructive pulmonary disease) ([facility]), GERD (gastroesophageal reflux disease), Hemodialysis patient ([facility]) ([facility]), History of blood transfusion, Liver disease, Movement disorder, Neuromuscular disorder ([facility]), Other disorders of kidney and ureter in diseases classified elsewhere, Pneumonia, Seizures ([facility]), or Thyroid disease. SurgicalHistory: has a past surgical history that includes [place] tooth extraction; Dilation and curettage of uterus(05/18/2019); Abscess drainage (Right, 09/09/2018); Leg amputation through knee (Right, 06/16/2019); Colonoscopy (09/19/2020); and Hysteroscopy (12/23/2021). Social History: reports that he has never smoked. He has never used smokeless tobacco. He reports that he does not drink alcohol and does not use drugs. Family History: family history is not on file. HomeMedications: Prior to Admission medications Medication Sig Start Date End Date Taking? Authorizing Provider ARIPiprazole (Abilify) 10 MG tablet Every 24 hours. Historical Provider, aspirin 81 MG EC tablet Take 1 tablet by mouth daily. 10/08/21 Historical Provider, atorvastatin (Lipitor) 10 MG tablet Take 1 tablet by mouth daily. 11/26/20 Historical Provider, dilTIAZem CD (Cardizem CD) 180 MG 24 hr capsule Take 180 mg by mouth daily. Historical Provider, dulaglutide (Trulicity) 4.5 MG/0.5ML solution pen-injector Inject 4.5 mg under the skin 1 (one) time per week. Historical Provider, FLUoxetine (PROzac) 40 MG capsule Take 40 mg by mouth daily. Historical Provider, gabapentin (Neurontin) 100 MG capsule Take 100 mg by mouth in the morning and 100 mg before bedtime. Historical Provider, insulin regular (HumuLIN R U-500 KWIKPEN) 500 UNIT/ML CONCENTRATED injection Inject under the skin 3 times daily. 285 units before breakfast/260 units before lunch/285 units before dinner Historical ProviderMD Lactobacillus Acid-Pectin (Acidophilus/Rosemead Pectin) tablet Take 1 tablet by mouth in the morning and 1 tablet in the evening. Historical Provider, lisinopril 40 MG tablet Every 24 hours. Historical ProviderMD Loratadine 10 MG capsule Take by mouth. Historical Provider, magnesium hydroxide (Milk of Magnesia Concentrate) 2400 MG/10ML suspension suspension Every 24 hours. Historical Provider, megestrol (Megace) 20 MG tablet Take 1 tablet by mouth in the morning and 1 tablet before bedtime. 08/13/21 Historical ProviderMD metoclopramide (Reglan) 10 MG tablet Take 1 tablet (10 mg) by mouth in the morning and 1 tablet (10mg) at noon and 1 tablet (10 mg) in the evening and 1 tablet (10 mg) before bedtime. Do all this for 7 days. 03/08/23 03/15/23 Jocelyn Santos MD metoprolol tartrate (Lopressor) 25 MG tablet Take 1 tablet by mouth in the morning and 1 tablet before bedtime. 11/28/20 Historical ProviderMD miconazole (Micotin) 2 % powder Apply topically 2 times daily. 11/25/20 Historical ProviderMD ondansetron (Zofran) 4 MG tablet Take 8 mg by mouth. 12/08/20 Historical ProviderMD pantoprazole (ProtoNix) 40 MG EC tablet Take 40 mg by mouth. 11/26/20 Historical Provider, polyethylene glycol, PEG, 3350 (Glycolax) 17 GM/SCOOP powder Take 17 g by mouth daily. Historical Provider, potassium chloride CR (K-Tab) 20 MEQ ER tablet Every 24 hours. Historical Provider, simvastatin (Zocor) 20 MG tablet Every 24 hours. 06/28/23 Historical ProviderMD Scheduled medications: acidophilus lactobacillus, 1 capsule, Oral, BID ARIPiprazole, 10 mg, Oral, Daily aspirin, 81 mg, Oral, Daily atorvastatin, 10 mg, Oral, Daily cetirizine, 10 mg, Oral, Daily dilTIAZem CD, 180 mg, Oral, Daily dulaglutide, 4.5 mg, SubCUTAneous, Weekly enoxaparin, 40 mg, SubCUTAneous, Daily FLUoxetine, 40 mg, Oral, Daily gabapentin, 100 mg, Oral, BID insulin regular, 285 Units, SubCUTAneous, TID lisinopril, 40 mg, Oral, q24h megestrol, 20 mg, Oral, BID metoclopramide, 10 mg, Oral, 4x daily metoprolol tartrate, 25 mg, Oral, BID miconazole, , Topical, BID pantoprazole, 40 mg, Oral, qAM AC polyethylene glycol (PEG) 3350, 17 g, Oral, Daily potassium chloride, 20 mEq, Oral, q24h Allergies: Patient has no known allergies. Other relevant review of systems: Review of Systems Unable to perform ROS: Psychiatric disorder Physical Exam: Vitals: 06/28/23 0217 06/28/23 0535 06/28/23 0607 BP: (!) 172/84 (!) 175/73 (!) 174/91 BP Location: Left arm Left arm Patient Position: Sitting Sitting Pulse: 107 107 (!) 111 Resp: Temp: 36.7 C (98 F) 36.7 C (98 F) TempSrc: Oral Temporal SpO2: 96% 95% 95% No intake or output data in the 24 hours ending 06/28/23 0916 Wt Readings from Last 4 Encounters: 03/08/23 (!) 335 lb (152 kg) 11/13/19 (!) 341 lb (155 kg) 09/20/19 (!) 334 lb (152 kg) Physical Exam Vitals reviewed. Constitutional: General: He is not in acute distress. Appearance: He is obese. HENT: Mouth/Throat: Dentition: Abnormal dentition. Eyes: General: No scleral icterus. Conjunctiva/sclera: Conjunctivae normal. Cardiovascular: Rate and Rhythm: Normal rate. Heart sounds: S1 normal and S2 normal. No murmur heard. No gallop. Pulmonary: Effort: Pulmonary effort is normal. Breath sounds: Normal breath sounds. No wheezing or rales. Abdominal: General: Abdomen is protuberant. There is no distension. Palpations: Abdomen is soft. There is no shifting dullness. Tenderness: There is no abdominal tenderness. Musculoskeletal: Left lower le+ Edema (erythema, scaling, changes of lymphedema) present. Right Lower Extremity: Right leg is amputated above knee. Skin: General: Skin is warm and dry. Neurological: Mental Status: He is alert. Psychiatric: Mood and Affect: Mood normal. Affect is flat. Pertinent Labs: Lab Results Component Value Date GLUCOSE 194 (H) 06/28/2023 CALCIUM 9.1 06/28/2023 NA 133 (L) 06/28/2023 K 5.0 06/28/2023 CO2 24 06/28/2023 CL 102 06/28/2023 BUN 20 06/28/2023 CREATININE 0.64 06/28/2023 Lab Results Component Value Date WBC 11.8 (H) 06/28/2023 HGB 11.6 (L) 06/28/2023 HCT 35.1 06/28/2023 MCV 82.3 06/28/2023 PLT 384 06/28/2023 Lab Results Component Value Date TROPONINI <0.012 06/28/2023 Lab Results Component Value Date HGBA1C 10.1 (H) 02/09/2023 Lab Results Component Value Date TSH 2.356 11/26/2020 No results found for: CHOL Lab Results Component Value Date HDL 31 (A) 08/29/2020 Lab Results Component Value Date LDLCALC 56 08/29/2020 Lab Results Component Value Date TRIG 190 08/29/2020 No results found for: CHOLHDL Radiology: === 06/28/23 === XR CHEST 1 VIEW - Impression - Low lung volumes. No acute infiltrate or effusion. [employer] Work Phone: 1(130) 623-942708-21-2023 History and physical note* Nabil Hill DO - 06/28/2023 8:41 AM EDT Department of Family Medicine Attending History and Physical CHIEF COMPLAINT: nausea chest pain Reason for Admission: same History Obtained From: patient History of Present Illness Will Jacinto is a 57 y.o. adult Mhx transgender F-to-M (not on hormonal therapy), obesity, DM, HTN, HLD, chronic OM s/p R AKA, h/o DVT not on AC who presents to the emergency department with complaint of nausea since 5 PM yesterday and development of bilateral upper chest pressure that has been constant since midnight. Associated lightheadedness. Denies shortness of breath or diaphoresis. Denies lower extremity swelling or calf pain. Denies abdominal pain. Denies prior history of similar symptoms. Workup in the ER was negative. He is still having nausea and has thrown up a couple of times. He states that the pressure comes and goes and is midsternal. I consulted cardio and GI to see him 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 other toe(s), unspecified side ([facility]) Anxiety disorder Bipolar 1 disorder ([facility]) Blood circulation, collateral Cellulitis chronic L lower leg COVID 12/08/2021 Depression Diabetes mellitus ([facility]) Type II, on insulin Disease of blood and blood forming organ Endometrial carcinoma ([facility]) 11/25/2020 Endometrial hyperplasia Foot ulcer ([facility]) Hx of blood clots RLE prior to amputation Hyperlipidemia Hypertension Lymphedema 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, RLE Morbidly obese ([facility]) Muscle weakness Osteomyelitis ([facility]) Osteomyelitis ([facility]) 2019 RLE Other lack of coordination Other specified soft tissue disorders Other symbolic dysfunctions Schizophrenia ([facility]) Sleep apnea no CPAP Venous insufficiency Past Surgical History: Past Surgical History: Procedure Laterality Date ABCESS DRAINAGE Right 09/09/2018 FOOT; [facility] COLONOSCOPY 09/19/[address] Hyde DILATION AND CURETTAGE OF UTERUS 05/18/2019 HYSTEROSCOPY 12/23/2021 LEG AMPUTATION THROUGH KNEE Right 06/16/2019 WISDOM TOOTH EXTRACTION Medications Prior to Admission: Medications Prior to Admission Medication Sig Dispense Refill Last Dose ARIPiprazole (Abilify) 10 MG tablet Every 24 hours. aspirin 81 MG EC tablet Take 1 tablet by mouth daily. atorvastatin (Lipitor) 10 MG tablet Take 1 tablet by mouth daily. dilTIAZem CD (Cardizem CD) 180 MG 24 hr capsule Take 180 mg by mouth daily. dulaglutide (Trulicity) 4.5 MG/0.5ML solution pen-injector Inject 4.5 mg under the skin 1 (one) time per week. FLUoxetine (PROzac) 40 MG capsule Take 40 mg by mouth daily. gabapentin (Neurontin) 100 MG capsule Take 100 mg by mouth in the morning and 100 mg before bedtime. insulin regular (HumuLIN R U-500 KWIKPEN) 500 UNIT/ML CONCENTRATED injection Inject under the skin 3 times daily. 285 units before breakfast/260 units before lunch/285 units before dinner Lactobacillus Acid-Pectin (Acidophilus/Rosemead Pectin) tablet Take 1 tablet by mouth in the morning and 1 tablet in the evening. lisinopril 40 MG tablet Every 24 hours. Loratadine 10 MG capsule Take by mouth. magnesium hydroxide (Milk of Magnesia Concentrate) 2400 MG/10ML suspension suspension Every 24 hours. megestrol (Megace) 20 MG tablet Take 1 tablet by mouth in the morning and 1 tablet before bedtime. metoclopramide (Reglan) 10 MG tablet Take 1 tablet (10 mg) by mouth in the morning and 1 tablet (10mg) at noon and 1 tablet (10 mg) in the evening and 1 tablet (10 mg) before bedtime. Do all this for 7 days. 28 tablet 0 metoprolol tartrate (Lopressor) 25 MG tablet Take 1 tablet by mouth in the morning and 1 tablet before bedtime. miconazole (Micotin) 2 % powder Apply topically 2 times daily. ondansetron (Zofran) 4 MG tablet Take 8 mg by mouth. pantoprazole (ProtoNix) 40 MG EC tablet Take 40 mg by mouth. polyethylene glycol, PEG, 3350 (Glycolax) 17 GM/SCOOP powder Take 17 g by mouth daily. potassium chloride CR (K-Tab) 20 MEQ ER tablet Every 24 hours. simvastatin (Zocor) 20 MG tablet Every 24 hours. Allergies: Patient has no known allergies. Social History: Social History Socioeconomic History Marital status: Single Tobacco Use Smoking status: Never Smokeless tobacco: Never Substance and Sexual Activity Alcohol use: No Drug use: Never Family History: No family history on file. REVIEW OF SYSTEMS: Review of Systems 10 point ros negative except for HPI Objective Vitals: BP (!) 174/91 Pulse (!) 111 Temp 36.7 C (98 F) (Temporal) Resp 18 SpO2 95% Physical Exam Pt is alert and oriented x 3 Heent wnl Heart regular Lungs ctab Abd benign Ext right AKA left with 1 + edema Assessment/Plan Patient Active Problem List Diagnosis Endometrial carcinoma (HCC) Endometrial hyperplasia Hypertension Diabetic hyperosmolar non-ketotic state (CMS/HCC) (HCC) Thickened endometrium Ileus (CMS/HCC) (HCC) Complex endometrial hyperplasia with atypia Diabetic gastroparesis associated with type 2 diabetes mellitus (CMS/HCC) (HCC) Esophagitis Nausea and vomiting Hyperlipidemia Cellulitis and abscess of lower extremity Chronic acquired lymphedema Cellulitis Hyperandrogenism Uncontrolled type 2 diabetes mellitus with complication Chronic osteomyelitis (CMS/HCC) (HCC) 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 (HCC) Class 3 severe obesity due to excess calories with serious comorbidity and body mass index (BMI) of50.0 to 59.9 in adult (HCC) Type 2 diabetes mellitus with hyperglycemia, with long-term current use of insulin (CMS/HCC) (HCC) Hyperglycemia Post-menopausal bleeding Morbid obesity (HCC) Left leg cellulitis Diabetic foot infection ([facility]) S/P AKA (above knee amputation) unilateral, right (HCC) Class 3 severe obesity due to excess calories with serious comorbidity and body mass index (BMI) of60.0 to 69.9 in adult (HCC) Chest pain Chest pain Nausea and vomiting DM 2 Morbid obesity HPL HTN Plan Admit to tele Consult cardio Consult endo Consult gi Clears and ivf for now Serial trops NABIL HILL DO 06/28/23 8:42 AM [id number] History and physical note* Nabil Hill DO - 06/28/2023 8:41 AM EDT Department of Family Medicine Attending History and Physical CHIEF COMPLAINT: nausea chest pain Reason for Admission: same History Obtained From: patient History of Present Illness Will Jacinto is a 57 y.o. adult Mhx transgender F-to-M (not on hormonal therapy), obesity, DM, HTN, HLD, chronic OM s/p R AKA, h/o DVT not on AC who presents to the emergency department with complaint of nausea since 5 PM yesterday and development of bilateral upper chest pressure that has been constant since midnight. Associated lightheadedness. Denies shortness of breath or diaphoresis. Denies lower extremity swelling or calf pain. Denies abdominal pain. Denies prior history of similar symptoms. Workup in the ER was negative. He is still having nausea and has thrown up a couple of times. He states that the pressure comes and goes and is midsternal. I consulted cardio and GI to see him 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 other toe(s), unspecified side ([facility]) Anxiety disorder Bipolar 1 disorder ([facility]) Blood circulation, collateral Cellulitis chronic L lower leg COVID 12/08/2021 Depression Diabetes mellitus ([facility]) Type II, on insulin Disease of blood and blood forming organ Endometrial carcinoma ([facility]) 11/25/2020 Endometrial hyperplasia Foot ulcer ([facility]) Hx of blood clots RLE prior to amputation Hyperlipidemia Hypertension Lymphedema 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, RLE Morbidly obese ([facility]) Muscle weakness Osteomyelitis ([facility]) Osteomyelitis ([facility]) 2019 RLE Other lack of coordination Other specified soft tissue disorders Other symbolic dysfunctions Schizophrenia ([facility]) Sleep apnea no CPAP Venous insufficiency Past Surgical History: Past Surgical History: Procedure Laterality Date ABCESS DRAINAGE Right 09/09/2018 FOOT; [facility] COLONOSCOPY 09/19/[address] Hyde DILATION AND CURETTAGE OF UTERUS 05/18/2019 HYSTEROSCOPY 12/23/2021 LEG AMPUTATION THROUGH KNEE Right 06/16/2019 WISDOM TOOTH EXTRACTION Medications Prior to Admission: Medications Prior to Admission Medication Sig Dispense Refill Last Dose ARIPiprazole (Abilify) 10 MG tablet Every 24 hours. aspirin 81 MG EC tablet Take 1 tablet by mouth daily. atorvastatin (Lipitor) 10 MG tablet Take 1 tablet by mouth daily. dilTIAZem CD (Cardizem CD) 180 MG 24 hr capsule Take 180 mg by mouth daily. dulaglutide (Trulicity) 4.5 MG/0.5ML solution pen-injector Inject 4.5 mg under the skin 1 (one) time per week. FLUoxetine (PROzac) 40 MG capsule Take 40 mg by mouth daily. gabapentin (Neurontin) 100 MG capsule Take 100 mg by mouth in the morning and 100 mg before bedtime. insulin regular (HumuLIN R U-500 KWIKPEN) 500 UNIT/ML CONCENTRATED injection Inject under the skin 3 times daily. 285 units before breakfast/260 units before lunch/285 units before dinner Lactobacillus Acid-Pectin (Acidophilus/Rosemead Pectin) tablet Take 1 tablet by mouth in the morning and 1 tablet in the evening. lisinopril 40 MG tablet Every 24 hours. Loratadine 10 MG capsule Take by mouth. magnesium hydroxide (Milk of Magnesia Concentrate) 2400 MG/10ML suspension suspension Every 24 hours. megestrol (Megace) 20 MG tablet Take 1 tablet by mouth in the morning and 1 tablet before bedtime. metoclopramide (Reglan) 10 MG tablet Take 1 tablet (10 mg) by mouth in the morning and 1 tablet (10mg) at noon and 1 tablet (10 mg) in the evening and 1 tablet (10 mg) before bedtime. Do all this for 7 days. 28 tablet 0 metoprolol tartrate (Lopressor) 25 MG tablet Take 1 tablet by mouth in the morning and 1 tablet before bedtime. miconazole (Micotin) 2 % powder Apply topically 2 times daily. ondansetron (Zofran) 4 MG tablet Take 8 mg by mouth. pantoprazole (ProtoNix) 40 MG EC tablet Take 40 mg by mouth. polyethylene glycol, PEG, 3350 (Glycolax) 17 GM/SCOOP powder Take 17 g by mouth daily. potassium chloride CR (K-Tab) 20 MEQ ER tablet Every 24 hours. simvastatin (Zocor) 20 MG tablet Every 24 hours. Allergies: Patient has no known allergies. Social History: Social History Socioeconomic History Marital status: Single Tobacco Use Smoking status: Never Smokeless tobacco: Never Substance and Sexual Activity Alcohol use: No Drug use: Never Family History: No family history on file. REVIEW OF SYSTEMS: Review of Systems 10 point ros negative except for HPI Objective Vitals: BP (!) 174/91 Pulse (!) 111 Temp 36.7 C (98 F) (Temporal) Resp 18 SpO2 95% Physical Exam Pt is alert and oriented x 3 Heent wnl Heart regular Lungs ctab Abd benign Ext right AKA left with 1 + edema Assessment/Plan Patient Active Problem List Diagnosis Endometrial carcinoma (HCC) Endometrial hyperplasia Hypertension Diabetic hyperosmolar non-ketotic state (CMS/HCC) (HCC) Thickened endometrium Ileus (CMS/HCC) (HCC) Complex endometrial hyperplasia with atypia Diabetic gastroparesis associated with type 2 diabetes mellitus (CMS/HCC) (HCC) Esophagitis Nausea and vomiting Hyperlipidemia Cellulitis and abscess of lower extremity Chronic acquired lymphedema Cellulitis Hyperandrogenism Uncontrolled type 2 diabetes mellitus with complication Chronic osteomyelitis (CMS/HCC) (HCC) 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 ([facility]) Class 3 severe obesity due to excess calories with serious comorbidity and body mass index (BMI) of50.0 to 59.9 in adult ([facility]) Type 2 diabetes mellitus with hyperglycemia, with long-term current use of insulin ([facility]/HCC) (HCC) Hyperglycemia Post-menopausal bleeding Morbid obesity ([facility]) Left leg cellulitis Diabetic foot infection ([facility]) S/P AKA (above knee amputation) unilateral, right ([facility]) Class 3 severe obesity due to excess calories with serious comorbidity and body mass index (BMI) of60.0 to 69.9 in adult ([facility] Chest pain Chest pain Nausea and vomiting DM 2 Morbid obesity HPL HTN Plan Admit to tele Consult cardio Consult endo Consult gi Clears and ivf for now Serial trops NABIL HILL DO 06/28/23 8:42 AM documented in this [facility]08-21-2023 Note* Significant Event - Rasmey Mc MD - 06/28/2023 7:59 AM EDT Patient was referred to the [facility] service for admission but his primary care physician is covered by Dr. Hill. Dr. Hill will see and admit. Attending changed to Dr. Hill. [employer] Phone: [phone]) 814-738308-21-2023 Note* Significant Event - Ramsey Mc MD - 06/28/2023 7:59 AM EDT Patient was referred to the [facility] service for admission but his primary care physician is covered by Dr. Hill. Dr. Hill will see and admit. Attending changed to Dr. Hill. [employer] Phone: [phone]) 742-248108-21-2023 NoteSuboptimal opacification of the pulmonary arteries. This study is nondiagnostic for evaluation of segmental and subsegmental pulmonary embolus. Given these limitations, no large central filling defects identified. No areas of consolidation or effusion. 7 mm nodule right middle lobe. There are no prior studies for comparison. Per the 2017 [employer]ora[employer] society guidelines for incidentally discovered solitary pulmonary nodule (6-8mm): LOW RISK PATIENT: repeat scan in 6 to 12 months, then [address] in 18-24 months HIGH RISK PATIENT: repeat CT scan at 6-[address] in 18-24 months. 2017 - UPDATED [employer] GUIDELINES FOR MANAGEMENT OF SMALL PULMONARY NODULES DETECTED ON CT Note: Recommendations do not apply for lung cancer screening, patients with immunosuppression or with known cancer. Dimensions are average of long and short axis rounded to the millimeter SOLITARY NODULE: LOW RISK PATIENT <6mm - No follow up 6-8mm - 6-12 months, then consider 18-24 months >8mm - PET/CT, Bx or followup in 3 months SOLITARY NODULE: HIGH RISK PATIENT <6mm - Optional 6-12 months (suspicious morphology or upper lobe) 6-8mm - 6-12 months, then 18-24 months >8mm - PET/CT, Bx or followup in 3 months MULTIPLE NODULES: LOW RISK PATIENT (Use most suspicious nodule to manage guidelines) All <6mm - No follow up Any >6mm - 3-6 months, then consider 18-24 months MULTIPLE NODULES: HIGH RISK PATIENT (Use most suspicious nodule to manage guidelines) All <6mm - No follow up Any >6mm - 3-6 months, then 18-24 months SUBSOLID NODULE: SINGLE GROUND GLASS OPACITY <6mm - No follow up 6mm or greater - 6-12 months, then every 2 years until 5 years SUBSOLID NODULE: PART SOLID <6mm - No follow up 6mm or greater - 3-6 months, then if solid component <6mm and unchanged every year until 5 years MULTIPLE SUBSOLID NODULES: All <6mm - 3-6 months, then if stable 24 and 48 months 6mm or greater - 3-6 months, subsequent management based upon most suspicious nodule Report Dictated on Electronically Signed By: Chucho Stringer MD Electronically Signed Date/Time: 06/28/2023 4:37 AM [facility] [id number] Emergency department Note* Dalila Mendes RN - 06/28/2023 2:14 AM EDT Bed: 33 Expected date: Expected time: Means of arrival: Comments: EMS Dalila Mendes RN 06/28/23 0214 [id number] Emergency [facility] Note* Rosaura Mustafa DO - 06/28/2023 2:14 AM EDT EMERGENCY DEPARTMENT ENCOUNTER Pt Name: Will Jacinto Birthdate 1965 Date of evaluation: 06/28/2023 ED Provider: Rosaura Mustafa DO CHIEF COMPLAINT Chief Complaint Patient presents with Chest Pain Vomiting HISTORY OF PRESENT ILLNESS (Location/Symptom, Timing/Onset, Context/Setting, Quality, Duration, Modifying Factors, Severity) Note limiting factors. I wore appropriate PPE for the entirety of this encounter. HPI Will Jacinto is a 57 y.o. adult Mhx transgender F-to-M (not on hormonal therapy), obesity, DM, HTN, HLD, chronic OM s/p R AKA, h/o DVT not on AC who presents to the emergency department with complaint of nausea since 5 PM yesterday and development of bilateral upper chest pressure that has been constant since midnight. Associated lightheadedness. Denies shortness of breath or diaphoresis. Denies lower extremity swelling or calf pain. Denies abdominal pain. Denies prior history of similar symptoms. Nursing Notes were reviewed. 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), unspecified side (HCC) Anxiety disorder Bipolar 1 disorder (HCC) Blood circulation, collateral Cellulitis chronic L lower leg COVID 12/08/2021 Depression Diabetes mellitus (HCC) Type II, on insulin Disease of blood and blood forming organ Endometrial carcinoma (HCC) 11/25/2020 Endometrial hyperplasia Foot ulcer (HCC) Hx of blood clots RLE prior to amputation Hyperlipidemia Hypertension Lymphedema 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, RLE Morbidly obese (HCC) Muscle weakness Osteomyelitis (HCC) Osteomyelitis (HCC) 2019 RLE Other lack of coordination Other specified soft tissue disorders Other symbolic dysfunctions Schizophrenia (HCC) Sleep apnea no CPAP Venous insufficiency SURGICAL HISTORY Past Surgical History: Procedure Laterality Date ABCESS DRAINAGE Right 09/09/2018 FOOT; ACH COLONOSCOPY 09/19/[address] Hyde DILATION AND CURETTAGE OF UTERUS 05/18/2019 HYSTEROSCOPY 12/23/2021 LEG AMPUTATION THROUGH KNEE Right 06/16/2019 WISDOM TOOTH EXTRACTION CURRENT MEDICATIONS Previous Medications ARIPIPRAZOLE (ABILIFY) 10 MG TABLET Every 24 hours. ASPIRIN 81 MG EC TABLET Take 1 tablet by mouth daily. ATORVASTATIN (LIPITOR) 10 MG TABLET Take 1 tablet by mouth daily. DILTIAZEM CD (CARDIZEM CD) 180 MG 24 HR CAPSULE Take 180 mg by mouth daily. DULAGLUTIDE (TRULICITY) 4.5 MG/0.5ML SOLUTION PEN-INJECTOR Inject 4.5 mg under the skin 1 (one) time per week. FLUOXETINE (PROZAC) 40 MG CAPSULE Take 40 mg by mouth daily. GABAPENTIN (NEURONTIN) 100 MG CAPSULE Take 100 mg by mouth in the morning and 100 mg before bedtime. INSULIN REGULAR (HUMULIN R U-500 KWIKPEN) 500 UNIT/ML CONCENTRATED INJECTION Inject under the skin 3 times daily. 285 units before breakfast/260 units before lunch/285 units before dinner LACTOBACILLUS ACID-PECTIN (ACIDOPHILUS/CITRUS PECTIN) TABLET Take 1 tablet by mouth in the morning and 1 tablet in the evening. LISINOPRIL 40 MG TABLET Every 24 hours. LORATADINE 10 MG CAPSULE Take by mouth. MAGNESIUM HYDROXIDE (MILK OF MAGNESIA CONCENTRATE) 2400 MG/10ML SUSPENSION SUSPENSION Every 24 hours. MEGESTROL (MEGACE) 20 MG TABLET Take 1 tablet by mouth in the morning and 1 tablet before bedtime. METOCLOPRAMIDE (REGLAN) 10 MG TABLET Take 1 tablet (10 mg) by mouth in the morning and 1 tablet (10mg) at noon and 1 tablet (10 mg) in the evening and 1 tablet (10 mg) before bedtime. Do all this for 7 days. METOPROLOL TARTRATE (LOPRESSOR) 25 MG TABLET Take 1 tablet by mouth in the morning and 1 tablet before bedtime. MICONAZOLE (MICOTIN) 2 % POWDER Apply topically 2 times daily. ONDANSETRON (ZOFRAN) 4 MG TABLET Take 8 mg by mouth. PANTOPRAZOLE (PROTONIX) 40 MG EC TABLET Take 40 mg by mouth. POLYETHYLENE GLYCOL, PEG, 3350 (GLYCOLAX) 17 GM/SCOOP POWDER Take 17 g by mouth daily. POTASSIUM CHLORIDE CR (K-TAB) 20 MEQ ER TABLET Every 24 hours. SIMVASTATIN (ZOCOR) 20 MG TABLET Every 24 hours. ALLERGIES Patient has no known allergies. FAMILY HISTORY No family history on file. SOCIAL HISTORY Social History Socioeconomic History Marital status: Single Tobacco Use Smoking status: Never Smokeless tobacco: Never Substance and Sexual Activity Alcohol use: No Drug use: Never SCREENINGS Aleks Coma Scale Best Eye Response: Spontaneous Best Verbal Response: Oriented Best Motor Response: Follows commands Aleks Coma Scale Score: 15 HEART Score History: Moderately suspicious ECG: Non-specific repolarization disturbance Age: 45-64 Risk Factors: >2 risk factors or hx of atherosclerotic disease Troponin: Less than or equal to normal limit HEART Score: 5 PHYSICAL EXAM ED Triage Vitals Temp Pulse Resp BP -- -- -- -- SpO2 Temp src Heart Rate Source Patient Position -- -- -- -- BP Location FiO2 (%) -- -- Physical Exam BP (!) 172/84 (BP Location: Left arm, Patient Position: Sitting) Pulse 107 Temp 36.7 C (98 F) (Oral) Resp 21 SpO2 96% Constitutional: Alert, awake. Morbidly obese, unkept appearing Lungs: CTABL, no wheezing, no rales Heart: Tachycardic, no murmurs, status post right above-knee amputation. Left lower extremity with nonpitting edema. No left calf tenderness to palpation. pulses intact throughout. Vascular: radial 2/4 equal B/L, dp 2/4 equal B/L Abdomen: nontender, no peritoneal signs and no masses. DIAGNOSTIC RESULTS RADIOLOGY (Per Emergency Physician): CXR No acute process CTPE No central PE. limited study Interpretation per the Radiologist below, if available at the time of this note: CT chest angiogram w and/or wo IV contrast Final Result Suboptimal opacification of the pulmonary arteries. This study is nondiagnostic for evaluation of segmental and subsegmental pulmonary embolus. Given these limitations, no large central filling defects identified. No areas of consolidation or effusion. 7 mm nodule right middle lobe. There are no prior studies for comparison. Per the 2017 Sora[employer] society guidelines for incidentally discovered solitary pulmonary nodule (6-8mm): LOW RISK PATIENT: repeat scan in 6 to 12 months, then [address] in 18-24 months HIGH RISK PATIENT: repeat CT scan at 6-[address] in 18-24 months. 2017 - UPDATED [employer] GUIDELINES FOR MANAGEMENT OF SMALL PULMONARY NODULES DETECTED ON CT Note: Recommendations do not apply for lung cancer screening, patients with immunosuppression or with known cancer. Dimensions are average of long and short axis rounded to the millimeter SOLITARY NODULE: LOW RISK PATIENT <6mm - No follow up 6-8mm - 6-12 months, then consider 18-24 months >8mm - PET/CT, Bx or followup in 3 months SOLITARY NODULE: HIGH RISK PATIENT <6mm - Optional 6-12 months (suspicious morphology or upper lobe) 6-8mm - 6-12 months, then 18-24 months >8mm - PET/CT, Bx or followup in 3 months MULTIPLE NODULES: LOW RISK PATIENT (Use most suspicious nodule to manage guidelines) All <6mm - No follow up Any >6mm - 3-6 months, then consider 18-24 months MULTIPLE NODULES: HIGH RISK PATIENT (Use most suspicious nodule to manage guidelines) All <6mm - No follow up Any >6mm - 3-6 months, then 18-24 months SUBSOLID NODULE: SINGLE GROUND GLASS OPACITY <6mm - No follow up 6mm or greater - 6-12 months, then every 2 years until 5 years SUBSOLID NODULE: PART SOLID <6mm - No follow up 6mm or greater - 3-6 months, then if solid component <6mm and unchanged every year until 5 years MULTIPLE SUBSOLID NODULES: All <6mm - 3-6 months, then if stable 24 and 48 months 6mm or greater - 3-6 months, subsequent management based upon most suspicious nodule Report Dictated on Electronically Signed By: Chucho Stringer MD Electronically Signed Date/Time: 06/28/2023 4:37 AM EDT XR chest 1 view Final Result Low lung volumes. No acute infiltrate or effusion. Report Dictated on Electronically Signed By: Chucho Stringer MD Electronically Signed Date/Time: 06/28/2023 3:08 AM EDT LABS: Labs Reviewed BASIC METABOLIC PANEL - Abnormal Result Value SODIUM 133 (*) POTASSIUM 5.0 CHLORIDE 102 CARBON DIOXIDE 24 UREA NITROGEN 20 CREATININE 0.64 GLUCOSE 194 (*) CALCIUM 9.1 ANION GAP 7 eGFR >90.0 CBC WITH AUTO DIFFERENTIAL - Abnormal Auto WBC 11.8 (*) RBC 4.26 Hemoglobin 11.6 (*) Hematocrit 35.1 MCV 82.3 MCH 27.3 MCHC 33.2 RDW 15.4 (*) Platelets 384 MPV 7.9 nRBC 0.0 Neutrophils Relative 90.3 (*) Lymphocytes Relative 5.4 (*) Monocytes Relative 3.6 Eosinophils Relative 0.1 (*) Basophils Relative 0.6 Neutrophils Absolute 10.6 (*) Lymphocytes Absolute 0.6 (*) Monocytes Absolute 0.4 Eosinophils Absolute 0.0 Basophils Absolute 0.1 TROPONIN I - Normal TROPONIN I <0.012 Narrative: Patients with high levels of Biotin oral intake (ie >5 mg/day) may have falsely decreased Troponin levels. NT PRO BNP - Normal NT PRO BNP 150 All other labs were within normal range or not returned as of this dictation. EMERGENCY DEPARTMENT COURSE and DIFFERENTIAL DIAGNOSIS/MDM: Vitals: Vitals: 06/28/23 0217 BP: (!) 172/84 BP Location: Left arm Patient Position: Sitting Pulse: 107 Resp: 21 Temp: 36.7 C (98 F) TempSrc: Oral SpO2: 96% 57 y.o. adult Mhx transgender F-to-M (not on hormonal therapy), obesity, DM, HTN, HLD, chronic OM s/p R AKA, h/o DVT not on AC who presents to the emergency department with complaint of nausea since 5 PM yesterday and development of bilateral upper chest pressure that has been constant since midnight. Associated lightheadedness. Denies shortness of breath or diaphoresis. Denies lower extremity swelling or calf pain. Denies abdominal pain. Denies prior history of similar symptoms. Tachycardic, otherwise hemodynamically stable. Exam as above. EKG sinus tachycardia with nonspecific ST elevation anteriorly likely secondary to LVH. Troponin and BNP negative. CT PE study without central PE. Limited due to contrast timing. Chest pain improved following aspirin and sublingual nitrog lycerin. Given description of chest pain and significant cardiac risk factors, will admit for serial troponins for ACS rule out. Heart score 5. Admitted to telemetry service under Dr. Mc. PROCEDURES: Unless otherwise noted below, none Procedures FINAL IMPRESSION 1. Chest pain, unspecified type DISPOSITION Observation 06/28/2023 05:11:11 AM PATIENT REFERRED TO: No follow-up provider specified. DISCHARGE MEDICATIONS: New Prescriptions No medications on file (Comment: Please note this report has been produced using speech recognition software and may contain errors related to that system including errors in grammar, punctuation, and spelling, as well as words and phrases that may be inappropriate. If there are any questions or concerns please feel freeto contact the dictating provider for clarification.) Rosaura Mustafa DO (electronically signed) Emergency Medicine Provider Rosaura Mustafa DO 06/28/23522 * Melissa Sosa RN - 06/28/2023 2:14 AM EDT Pt presents to ED via EMS from [facility]. Pt is experiencing chest pain that started before midnight. Pt has also been vomiting today. Pt denies hx of VT. * Dalila Mendes RN - 06/28/2023 2:14 AM EDT Bed: 33 Expected date: Expected time: Means of arrival: Comments: EMS Dalila Mendes RN 06/28/23 0214 documented in this [facility]08-21-2023 Emergency department Triage note* Melissa Sosa RN - 06/28/2023 2:14 AM EDT Pt presents to ED via EMS from [facility]. Pt is experiencing chest pain that started before midnight. Pt has also been vomiting today. Pt denies hx of VT. [id number] Emergency department Note* Rosaura Mustafa DO - 06/28/2023 2:14 AM EDT EMERGENCY DEPARTMENT ENCOUNTER Pt Name: Will Jacinto Birthdate 1965 Date of evaluation: 06/28/2023 ED Provider: Rosaura Mustafa DO CHIEF COMPLAINT Chief Complaint Patient presents with Chest Pain Vomiting HISTORY OF PRESENT ILLNESS (Location/Symptom, Timing/Onset, Context/Setting, Quality, Duration, Modifying Factors, Severity) Note limiting factors. I wore appropriate PPE for the entirety of this encounter. HPI Will Jacinto is a 57 y.o. adult Mhx transgender F-to-M (not on hormonal therapy), obesity, DM, HTN, HLD, chronic OM s/p R AKA, h/o DVT not on AC who presents to the emergency department with complaint of nausea since 5 PM yesterday and development of bilateral upper chest pressure that has been constant since midnight. Associated lightheadedness. Denies shortness of breath or diaphoresis. Denies lower extremity swelling or calf pain. Denies abdominal pain. Denies prior history of similar symptoms. Nursing Notes were reviewed. 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), unspecified side (HCC) Anxiety disorder Bipolar 1 disorder (HCC) Blood circulation, collateral Cellulitis chronic L lower leg COVID 12/08/2021 Depression Diabetes mellitus (HCC) Type II, on insulin Disease of blood and blood forming organ Endometrial carcinoma (HCC) 11/25/2020 Endometrial hyperplasia Foot ulcer (HCC) Hx of blood clots RLE prior to amputation Hyperlipidemia Hypertension Lymphedema 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, RLE Morbidly obese (HCC) Muscle weakness Osteomyelitis (HCC) Osteomyelitis (HCC) 2019 RLE Other lack of coordination Other specified soft tissue disorders Other symbolic dysfunctions Schizophrenia (HCC) Sleep apnea no CPAP Venous insufficiency SURGICAL HISTORY Past Surgical History: Procedure Laterality Date ABCESS DRAINAGE Right 09/09/2018 FOOT; ACH COLONOSCOPY 09/19/[address] Hyde DILATION AND CURETTAGE OF UTERUS 05/18/2019 HYSTEROSCOPY 12/23/2021 LEG AMPUTATION THROUGH KNEE Right 06/16/2019 WISDOM TOOTH EXTRACTION CURRENT MEDICATIONS Previous Medications ARIPIPRAZOLE (ABILIFY) 10 MG TABLET Every 24 hours. ASPIRIN 81 MG EC TABLET Take 1 tablet by mouth daily. ATORVASTATIN (LIPITOR) 10 MG TABLET Take 1 tablet by mouth daily. DILTIAZEM CD (CARDIZEM CD) 180 MG 24 HR CAPSULE Take 180 mg by mouth daily. DULAGLUTIDE (TRULICITY) 4.5 MG/0.5ML SOLUTION PEN-INJECTOR Inject 4.5 mg under the skin 1 (one) time per week. FLUOXETINE (PROZAC) 40 MG CAPSULE Take 40 mg by mouth daily. GABAPENTIN (NEURONTIN) 100 MG CAPSULE Take 100 mg by mouth in the morning and 100 mg before bedtime. INSULIN REGULAR (HUMULIN R U-500 KWIKPEN) 500 UNIT/ML CONCENTRATED INJECTION Inject under the skin 3 times daily. 285 units before breakfast/260 units before lunch/285 units before dinner LACTOBACILLUS ACID-PECTIN (ACIDOPHILUS/CITRUS PECTIN) TABLET Take 1 tablet by mouth in the morning and 1 tablet in the evening. LISINOPRIL 40 MG TABLET Every 24 hours. LORATADINE 10 MG CAPSULE Take by mouth. MAGNESIUM HYDROXIDE (MILK OF MAGNESIA CONCENTRATE) 2400 MG/10ML SUSPENSION SUSPENSION Every 24 hours. MEGESTROL (MEGACE) 20 MG TABLET Take 1 tablet by mouth in the morning and 1 tablet before bedtime. METOCLOPRAMIDE (REGLAN) 10 MG TABLET Take 1 tablet (10 mg) by mouth in the morning and 1 tablet (10mg) at noon and 1 tablet (10 mg) in the evening and 1 tablet (10 mg) before bedtime. Do all this for 7 days. METOPROLOL TARTRATE (LOPRESSOR) 25 MG TABLET Take 1 tablet by mouth in the morning and 1 tablet before bedtime. MICONAZOLE (MICOTIN) 2 % POWDER Apply topically 2 times daily. ONDANSETRON (ZOFRAN) 4 MG TABLET Take 8 mg by mouth. PANTOPRAZOLE (PROTONIX) 40 MG EC TABLET Take 40 mg by mouth. POLYETHYLENE GLYCOL, PEG, 3350 (GLYCOLAX) 17 GM/SCOOP POWDER Take 17 g by mouth daily. POTASSIUM CHLORIDE CR (K-TAB) 20 MEQ ER TABLET Every 24 hours. SIMVASTATIN (ZOCOR) 20 MG TABLET Every 24 hours. ALLERGIES Patient has no known allergies. FAMILY HISTORY No family history on file. SOCIAL HISTORY Social History Socioeconomic History Marital status: Single Tobacco Use Smoking status: Never Smokeless tobacco: Never Substance and Sexual Activity Alcohol use: No Drug use: Never SCREENINGS Aleks Coma Scale Best Eye Response: Spontaneous Best Verbal Response: Oriented Best Motor Response: Follows commands [place] Coma Scale Score: 15 HEART Score History: Moderately suspicious ECG: Non-specific repolarization disturbance Age: 45-64 Risk Factors: >2 risk factors or hx of atherosclerotic disease Troponin: Less than or equal to normal limit HEART Score: 5 PHYSICAL EXAM ED Triage Vitals Temp Pulse Resp BP -- -- -- -- SpO2 Temp src Heart Rate Source Patient Position -- -- -- -- BP Location FiO2 (%) -- -- Physical Exam BP (!) 172/84 (BP Location: Left arm, Patient Position: Sitting) Pulse 107 Temp 36.7 C (98 F) (Oral) Resp 21 SpO2 96% Constitutional: Alert, awake. Morbidly obese, unkept appearing Lungs: CTABL, no wheezing, no rales Heart: Tachycardic, no murmurs, status post right above-knee amputation. Left lower extremity with nonpitting edema. No left calf tenderness to palpation. pulses intact throughout. Vascular: radial 2/4 equal B/L, dp 2/4 equal B/L Abdomen: nontender, no peritoneal signs and no masses. DIAGNOSTIC RESULTS RADIOLOGY (Per Emergency Physician): CXR No acute process CTPE No central PE. limited study Interpretation per the Radiologist below, if available at the time of this note: CT chest angiogram w and/or wo IV contrast Final Result Suboptimal opacification of the pulmonary arteries. This study is nondiagnostic for evaluation of segmental and subsegmental pulmonary embolus. Given these limitations, no large central filling defects identified. No areas of consolidation or effusion. 7 mm nodule right middle lobe. There are no prior studies for comparison. Per the 2017 Soraida society guidelines for incidentally discovered solitary pulmonary nodule (6-8mm): LOW RISK PATIENT: repeat scan in 6 to 12 months, then [address] in 18-24 months HIGH RISK PATIENT: repeat CT scan at 6-[address] in 18-24 months. 2017 - UPDATED [employer] GUIDELINES FOR MANAGEMENT OF SMALL PULMONARY NODULES DETECTED ON CT Note: Recommendations do not apply for lung cancer screening, patients with immunosuppression or with known cancer. Dimensions are average of long and short axis rounded to the millimeter SOLITARY NODULE: LOW RISK PATIENT <6mm - No follow up 6-8mm - 6-12 months, then consider 18-24 months >8mm - PET/CT, Bx or followup in 3 months SOLITARY NODULE: HIGH RISK PATIENT <6mm - Optional 6-12 months (suspicious morphology or upper lobe) 6-8mm - 6-12 months, then 18-24 months >8mm - PET/CT, Bx or followup in 3 months MULTIPLE NODULES: LOW RISK PATIENT (Use most suspicious nodule to manage guidelines) All <6mm - No follow up Any >6mm - 3-6 months, then consider 18-24 months MULTIPLE NODULES: HIGH RISK PATIENT (Use most suspicious nodule to manage guidelines) All <6mm - No follow up Any >6mm - 3-6 months, then 18-24 months SUBSOLID NODULE: SINGLE GROUND GLASS OPACITY <6mm - No follow up 6mm or greater - 6-12 months, then every 2 years until 5 years SUBSOLID NODULE: PART SOLID <6mm - No follow up 6mm or greater - 3-6 months, then if solid component <6mm and unchanged every year until 5 years MULTIPLE SUBSOLID NODULES: All <6mm - 3-6 months, then if stable 24 and 48 months 6mm or greater - 3-6 months, subsequent management based upon most suspicious nodule Report Dictated on Electronically Signed By: Chucho Stringer MD Electronically Signed Date/Time: 06/28/2023 4:37 AM EDT XR chest 1 view Final Result Low lung volumes. No acute infiltrate or effusion. Report Dictated on Electronically Signed By: Chucho Stringer MD Electronically Signed Date/Time: 06/28/2023 3:08 AM EDT LABS: Labs Reviewed BASIC METABOLIC PANEL - Abnormal Result Value SODIUM 133 (*) POTASSIUM 5.0 CHLORIDE 102 CARBON DIOXIDE 24 UREA NITROGEN 20 CREATININE 0.64 GLUCOSE 194 (*) CALCIUM 9.1 ANION GAP 7 eGFR >90.0 CBC WITH AUTO DIFFERENTIAL - Abnormal Auto WBC 11.8 (*) RBC 4.26 Hemoglobin 11.6 (*) Hematocrit 35.1 MCV 82.3 MCH 27.3 MCHC 33.2 RDW 15.4 (*) Platelets 384 MPV 7.9 nRBC 0.0 Neutrophils Relative 90.3 (*) Lymphocytes Relative 5.4 (*) Monocytes Relative 3.6 Eosinophils Relative 0.1 (*) Basophils Relative 0.6 Neutrophils Absolute 10.6 (*) Lymphocytes Absolute 0.6 (*) Monocytes Absolute 0.4 Eosinophils Absolute 0.0 Basophils Absolute 0.1 TROPONIN I - Normal TROPONIN I <0.012 Narrative: Patients with high levels of Biotin oral intake (ie >5 mg/day) may have falsely decreased Troponin levels. NT PRO BNP - Normal NT PRO BNP 150 All other labs were within normal range or not returned as of this dictation. EMERGENCY DEPARTMENT COURSE and DIFFERENTIAL DIAGNOSIS/MDM: Vitals: Vitals: 06/28/23 0217 BP: (!) 172/84 BP Location: Left arm Patient Position: Sitting Pulse: 107 Resp: 21 Temp: 36.7 C (98 F) TempSrc: Oral SpO2: 96% 57 y.o. adult Mhx transgender F-to-M (not on hormonal therapy), obesity, DM, HTN, HLD, chronic OM s/p R AKA, h/o DVT not on AC who presents to the emergency department with complaint of nausea since 5 PM yesterday and development of bilateral upper chest pressure that has been constant since midnight. Associated lightheadedness. Denies shortness of breath or diaphoresis. Denies lower extremity swelling or calf pain. Denies abdominal pain. Denies prior history of similar symptoms. Tachycardic, otherwise hemodynamically stable. Exam as above. EKG sinus tachycardia with nonspecific ST elevation anteriorly likely secondary to LVH. Troponin and BNP negative. CT PE study without central PE. Limited due to contrast timing. Chest pain improved following aspirin and sublingual nitrog lycerin. Given description of chest pain and significant cardiac risk factors, will admit for serial troponins for ACS rule out. Heart score 5. Admitted to telemetry service under Dr. Mc. PROCEDURES: Unless otherwise noted below, none Procedures FINAL IMPRESSION 1. Chest pain, unspecified type DISPOSITION Observation 06/28/2023 05:11:11 AM PATIENT REFERRED TO: No follow-up provider specified. DISCHARGE MEDICATIONS: New Prescriptions No medications on file (Comment: Please note this report has been produced using speech recognition software and may contain errors related to that system including errors in grammar, punctuation, and spelling, as well as words and phrases that may be inappropriate. If there are any questions or concerns please feel freeto contact the dictating provider for clarification.) Rosaura Mustafa DO (electronically signed) Emergency Medicine Provider Rosaura Mustafa DO 06/28/2323 [place] [id number] Telephone encounter Note* Telephone Encounter - Radha Busby MA - 06/23/2023 8:22 AM EDT Called [facility] and spoke with nurse minesh. I relayed the message below and she verbalized understanding. [place] [id number] Miscellaneous Notes* Telephone Encounter - Radha Busby MA - 06/23/2023 8:22 AM EDT Called [facility] and spoke with nurse minesh. I relayed the message below and she verbalized understanding. * Telephone Encounter - Geronimo Lee MD - 06/22/2023 4:43 PM EDT Keep doses the same for now thank you * Telephone Encounter - Jackson Pratt - 06/22/2023 3:35 PM EDT Images from the original note were not included. Patient BGL documented in this encounterSBerger [id number] Telephone encounter Note* Telephone Encounter - Geronimo Lee MD - 06/22/2023 4:43 PM EDT Keep doses the same for now thank you [facility] [email or web address] Phone: 1(888) 143-179308-15-2023 Telephone encounter Note* Telephone Encounter - Jackson Pratt - 06/22/2023 3:35 PM EDT Images from the original note were not included. Patient BGL [facility] [id number] Telephone encounter Note* Telephone Encounter - Idalmis Rodriguez MA - 05/18/2023 11:32 AM EDT Called patient and left message stating there is no changes at this time. [facility] [id number] Miscellaneous Notes* Telephone Encounter - Idalmis Rodriguez MA - 05/18/2023 11:32 AM EDT Called patient and left message stating there is no changes at this time. * Telephone Encounter - Geronimo Lee MD - 05/17/2023 4:48 PM EDT Keep doses the same increased trulicity already * Telephone Encounter - Jackson Pratt - 05/17/2023 3:35 PM EDT Images from the original note were not included. Patient BGL documented in this encounterSBerger [id number] Telephone encounter Note* Telephone Encounter - Geronimo eLe MD - 05/17/2023 4:48 PM EDT Keep doses the same increased trulicity already [facility] [email or web address] Phone: [phone]) [phone] Telephone encounter Note* Telephone Encounter - Jackson Evelyn Pratt - 05/17/2023 3:35 PM EDT Images from the original note were not included. Patient BGL [facility] [id number] Note* Addendum Note - Radha Busby MA - 05/07/2023 10:05 AM EDTAddended by: RADHA BUSBY on: 05/07/2023 10:05 AM Modules accepted: Orders [facility] [id number] Miscellaneous Notes* Addendum Note - Radha Busby MA - 05/07/2023 10:05 AM EDTAddended by: RADHA BUSBY on: 05/07/2023 10:05 AM Modules accepted: Orders * Telephone Encounter - Radha Busby MA - 05/07/2023 10:04 AM EDT Called [facility] and spoke with nurse ochoa. I relayed the message below and she verbalized understanding. Med req updated. * Telephone Encounter - Geronimo Lee MD - 05/06/2023 11:19 AM EDT Please increase trulicity to 4.5 mg weekly thank you * Telephone Encounter - Radha Busby MA - 05/06/2023 10:18 AM EDT Patient is currently taking Humulin R u500 (285 units before breakfast/260 units before lunch/285 units before dinner) Trulicity 3mg weekly * Telephone Encounter - Geronimo Lee MD - 05/05/2023 4:27 PM EDT Please confirm current insulin doses thank you * Telephone Encounter - Jackson Pratt - 05/05/2023 3:27 PM EDT Images from the original note were not included. Patient BGL documented in this [facility]06-30-2023 Telephone encounter Note* Telephone Encounter - Radha Busby MA - 05/07/2023 10:04 AM EDT Called [facility] and spoke with nurse ochoa. I relayed the message below and she verbalized understanding. Med req updated. [facility] [id number] Telephone encounter Note* Telephone Encounter - Geronimo Lee MD - 05/06/2023 11:19 AM EDT Please increase trulicity to 4.5 mg weekly thank you [facility] [employer] Phone: 1(343) 953-863606-29-2023 Miscellaneous Notes* Telephone Encounter - Geronimo Lee MD - 05/06/2023 11:19 AM EDT Please increase trulicity to 4.5 mg weekly thank you * Telephone Encounter - Radha Busby MA - 05/06/2023 10:18 AM EDT Patient is currently taking Humulin R u500 (285 units before breakfast/260 units before lunch/285 units before dinner) Trulicity 3mg weekly * Telephone Encounter - Geronimo Lee MD - 05/05/2023 4:27 PM EDT Please confirm current insulin doses thank you * Telephone Encounter - Jackson Pratt - 05/05/2023 3:27 PM EDT Images from the original note were not included. Patient BGL documented in this encounterSBerger [id number] Telephone encounter Note* Telephone Encounter - Radha Busby MA - 05/06/2023 10:18 AM EDT Patient is currently taking Humulin R u500 (285 units before breakfast/260 units before lunch/285 units before dinner) Trulicity 3mg weekly [facility] [id number] Telephone encounter Note* Telephone Encounter - Geronimo Lee MD - 05/05/2023 4:27 PM EDT Please confirm current insulin doses thank you [facility] [id number] Telephone encounter Note* Telephone Encounter - Jackson Pratt - 05/05/2023 3:27 PM EDT Images from the original note were not included. Patient BGL [facility] [id number] Hospital Discharge instructions* Discharge Instructions* Jocelyn Santos MD - 03/08/2023 3:59 PM EDT Return to the ED if you cannot tolerate fluids with the Reglan. * Attachments The following attachments cannot be sent through Care Everywhere. * Gastroparesis (Delayed Gastric Emptying) (Swiss) documented in this [facility]05-01-2023 Emergency department Note* Joellen Palmer RN - 03/08/2023 12:50 PM EDT Bed: 18 Expected date: Expected time: Means of arrival: Comments: Physicians Joellen Palmer RN 03/08/23 1250 [facility] [id number] Emergency department Note* Karlos Osborn DO - 03/08/2023 12:50 PM EDT Emergency Department Encounter [facility] ED Patient: Will Jacinto : 1965 Date of Evaluation: 03/08/2023 ED Supervising Physician: Karlos Osborn DO I independently examined and evaluated Will Jacinto. This will serve as my Supervisory note and shared attestation. I did perform a substantive portion of the visit including all aspects of the Medical Decision Making. I wore appropriate PPE for the entirety of this encounter. In brief, Will Jacinto is a 57 y.o. adult that presents to the emergency department for abdominal pain. Patient states that the abdominal pain is exactly like when he had gastroparesis in the past secondary to his diabetes. States that he did have to be admitted for several days if not weeks due to this. States it is unknown differentiated from his previous experience Focused exam: Does have a protuberant abdomen no rigidity guarding negative for peritoneal signs, heart and lungs were otherwise normal. Brief ED course/MDM: Patient at this time did have lab work consisting of a CMP which was relatively unremarkable, [id number]-[id number] glucose was 167, CBC was relatively unremarkable. Patient's beta hydroxybutyrate was negative. Did have a CT abdomen pelvis which at this time was independently interpreted I did not appreciate any type of inflammatory process over read by radiology was negative. At this time patient has tolerated p.o. intake has had no nausea no vomiting no other associated issues. Given that the patient's lab work and imaging was otherwise unremarkable we are going to startthe patient on Reglan and discharged back to the nursing facility. Patient was agreeable and amenable to this plan did not have any other associated concerns at this time. MDM elements: The patient presented with chief complaint of abdominal pain. The differential diagnosis associated with this patient's presentation includes appendicitis, pancreatitis, DKA. Our workup consisted of ordering/reviewing: CBC, CMP, lipase CT abdomen pelvis. Patient is in agreement with this plan. All diagnostic, treatment, and disposition decisions were made by myself in conjunction with the Resident. I also supervised bunch portions of any procedures performed by the Resident. For all further details of the patient's emergency department visit, please see their documentation. (Comment: Please note this report has been produced using speech recognition software and may contain errors related to that system including errors in grammar, punctuation, and spelling, as well as words and phrases that may be inappropriate. If there are any questions or concerns please feel freeto contact the dictating provider for clarification.) Karlos Osborn DO [employer] Karlos Osborn DO 03/08/23 1623 * Joellen Palmer RN - 03/08/2023 12:50 PM EDT Bed: 18 Expected date: Expected time: Means of arrival: Comments: Physicians Joellen Palmer RN 03/08/23 1250 documented in this [facility]05-01-2023 Physician Emergency department Note* Karlos Osborn DO - 03/08/2023 12:50 PM EDT Emergency Department Encounter [facility] Patient: Will Jacinto : 1965 Date of Evaluation: 03/08/2023 ED Supervising Physician: Karlos Osborn DO I independently examined and evaluated Will Jacinto. This will serve as my Supervisory note and shared attestation. I did perform a substantive portion of the visit including all aspects of the Medical Decision Making. I wore appropriate PPE for the entirety of this encounter. In brief, Will Jacinto is a 57 y.o. adult that presents to the emergency department for abdominal pain. Patient states that the abdominal pain is exactly like when he had gastroparesis in the past secondary to his diabetes. States that he did have to be admitted for several days if not weeks due to this. States it is unknown differentiated from his previous experience Focused exam: Does have a protuberant abdomen no rigidity guarding negative for peritoneal signs, heart and lungs were otherwise normal. Brief ED course/MDM: Patient at this time did have lab work consisting of a CMP which was relatively unremarkable, [id number] glucose was 167, CBC was relatively unremarkable. Patient's beta hydroxybutyrate was negative. Did have a CT abdomen pelvis which at this time was independently interpreted I did not appreciate any type of inflammatory process over read by radiology was negative. At this time patient has tolerated p.o. intake has had no nausea no vomiting no other associated issues. Given that the patient's lab work and imaging was otherwise unremarkable we are going to startthe patient on Reglan and discharged back to the nursing facility. Patient was agreeable and amenable to this plan did not have any other associated concerns at this time. MDM elements: The patient presented with chief complaint of abdominal pain. The differential diagnosis associated with this patient's presentation includes appendicitis, pancreatitis, DKA. Our workup consisted of ordering/reviewing: CBC, CMP, lipase CT abdomen pelvis. Patient is in agreement with this plan. All diagnostic, treatment, and disposition decisions were made by myself in conjunction with the Resident. I also supervised bunch portions of any procedures performed by the Resident. For all further details of the patient's emergency department visit, please see their documentation. (Comment: Please note this report has been produced using speech recognition software and may contain errors related to that system including errors in grammar, punctuation, and spelling, as well as words and phrases that may be inappropriate. If there are any questions or concerns please feel freeto contact the dictating provider for clarification.) Karlos Osborn DO [employer] Karlos Osborn DO 03/08/231622 [employer] Phone: 1(359) [phone] Telephone encounter Note* Telephone Encounter - Radha Busby MA - 03/01/2023 9:01 AM EDT Patient received message. [facility] [id number] Miscellaneous Notes* Telephone Encounter - Radha Busby MA - 03/01/2023 9:01 AM EDT Patient received message. * Telephone Encounter - Radha Busby MA - 02/26/2023 1:39 PM EDT Called patient and left message to contact office. * Telephone Encounter - Geronimo Lee MD - 02/26/2023 11:18 AM EDT Increase morning u500 insulin dose by 25 units please thank you * Telephone Encounter - Jackson Pratt - 02/25/2023 3:35 PM EDT Images from the original note were not included. Patient BGL documented in this encounterSBerger [id number] Telephone encounter Note* Telephone Encounter - Radha Busby MA - 02/26/2023 1:39 PM EDT Called patient and left message to contact office. [id number] Miscellaneous Notes* Telephone Encounter - Radha Busby MA - 02/26/2023 1:39 PM EDT Called patient and left message to contact office. * Telephone Encounter - Geronimo Lee MD - 02/26/2023 11:18 AM EDT Increase morning u500 insulin dose by 25 units please thank you * Telephone Encounter - Jackson Pratt - 02/25/2023 3:35 PM EDT Images from the original note were not included. Patient BGL documented in this encounterSBerger [id number] Telephone encounter Note* Telephone Encounter - Geronimo Lee MD - 02/26/2023 11:18 AM EDT Increase morning u500 insulin dose by 25 units please thank you [facility] [id number] Telephone encounter Note* Telephone Encounter - Jackson Pratt - 02/25/2023 3:35 PM EDT Images from the original note were not included. Patient BGL [id number] History of Present illness Narrative* Geronimo Lee MD - 02/09/2023 9:20 AM EDT . [facility] [place] [address] [place] [address] Dept: [phone] Dept Visit type: Established patient Reason for Visit: Follow-up (DM2) Assessment and Plan 1. Type 2 diabetes mellitus with hyperglycemia, with long-term current use of insulin ([facility] ([facility]) 2. Mixed hyperlipidemia 3. Primary hypertension No follow-ups on file. Discussed with patient Diabetes is unstable blood glucose levels very high conisistently Increase trulicity to 1.5 mg weekly Increase u500 insulin to 225 units daily Stop tradjenta Send in blood glucose levels along with medications taking for dm once weekly Discussed with patient detection, monitoring, management, and prevention of hypoglycemia Discussed with patient diet modification and approach to diabetes management Discussed with patient eye care and importance of follow with diabetes Discussed with patient hemoglobin a1c goal determination 7 Discussed with patient a1c as relates to average glucose and HGM values Subjective HPI Diet: 3 meals a day sometimes has a snack in evening Exercise: adls - in wheelchair s/p right aka Hgm: checking 3 times daily ar ecf 250-400 range Hypoglycemia: none, feels weak and shaky Medcomp: U500 190/190/190/0 tradjenta 5 mg daily trulicity 0.75 mg weekly Eye care: caught up for the year, has not needed injections Onset dm: 1991 a1c goal: 7 Hlp taking atorvastatin tolerates well stable Htn taking diltiazem daily tolerates well stable No hx pancreatitis No hx medullary cancer thyroid or fmhx Review of Systems Constitutional: Negative for activity change and fatigue. HENT: Negative for hearing loss, trouble swallowing and voice change. Respiratory: Negative for cough, shortness of breath and wheezing. Cardiovascular: Negative for chest pain and palpitations. Gastrointestinal: Negative for nausea and vomiting. Endocrine: Negative for cold intolerance and heat intolerance. Genitourinary: Negative for dysuria and hematuria. Musculoskeletal: Positive for gait problem (wheelchair). Skin: Negative for rash. Neurological: Negative for tremors and headaches. Hematological: Negative for adenopathy. Does not bruise/bleed easily. Psychiatric/Behavioral: Negative for sleep disturbance. No Known Allergies Outpatient Medications Prior to Visit Medication Sig Dispense Refill ARIPiprazole (Abilify) 10 MG tablet Every 24 hours. aspirin 81 MG EC tablet Take 1 tablet by mouth daily. atorvastatin (Lipitor) 10 MG tablet Take 1 tablet by mouth daily. dilTIAZem CD (Cardizem CD) 180 MG 24 hr capsule Take 180 mg by mouth daily. dulaglutide (Trulicity) 0.75 MG/0.5ML solution pen-injector Inject 0.75 mg under the skin 1 (one) time per week. 12 each 3 FLUoxetine (PROzac) 40 MG capsule Take 40 mg by mouth daily. gabapentin (Neurontin) 100 MG capsule Take 100 mg by mouth in the morning and 100 mg before bedtime. insulin regular (HumuLIN R U-500 LASHAUNIKPEN) 500 UNIT/ML CONCENTRATED injection Inject 190 Units underthe skin 3 times daily. Lactobacillus Acid-Pectin (Acidophilus/[place] Pectin) tablet Take 1 tablet by mouth in the morning and 1 tablet in the evening. linaGLIPtin (Tradjenta) 5 MG tablet Take 5 mg by mouth daily. lisinopril 40 MG tablet Every 24 hours. Loratadine 10 MG capsule Take by mouth. magnesium hydroxide (Milk of Magnesia Concentrate) 2400 MG/10ML suspension suspension Every 24 hours. megestrol (Megace) 20 MG tablet Take 1 tablet by mouth in the morning and 1 tablet before bedtime. metoclopramide (Reglan) 10 MG tablet Take 10 mg by mouth. metoprolol tartrate (Lopressor) 25 MG tablet Take 1 tablet by mouth in the morning and 1 tablet before bedtime. miconazole (Micotin) 2 % powder Apply topically 2 times daily. ondansetron (Zofran) 4 MG tablet Take 8 mg by mouth. pantoprazole (ProtoNix) 40 MG EC tablet Take 40 mg by mouth. polyethylene glycol, PEG, 3350 (Glycolax) 17 GM/SCOOP powder Take 17 g by mouth daily. potassium chloride CR (K-Tab) 20 MEQ ER tablet Every 24 hours. simvastatin (Zocor) 20 MG tablet Every 24 hours. No facility-administered medications prior to visit. 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) Acquired absence of other toe(s), unspecified side (HCC) Anxiety disorder Bipolar 1 disorder ([facility]) Blood circulation, collateral Cellulitis chronic L lower leg COVID 12/08/2021 Depression Diabetes mellitus ([facility]) Type II, on insulin Disease of blood and blood forming organ Endometrial carcinoma ([facility]) 11/25/2020 Endometrial hyperplasia Foot ulcer ([facility]) Hx of blood clots RLE prior to amputation Hyperlipidemia Hypertension Lymphedema 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, RLE Morbidly obese ([facility]) Muscle weakness Osteomyelitis (HCC) Osteomyelitis (HCC) 2019 RLE Other lack of coordination Other specified soft tissue disorders Other symbolic dysfunctions Schizophrenia ([facility]) Sleep apnea no CPAP Venous insufficiency Social History Tobacco Use Smoking status: Never Smokeless tobacco: Never Substance Use Topics Alcohol use: No Past Surgical History: Procedure Laterality Date ABCESS DRAINAGE Right 09/09/2018 FOOT; [facility] COLONOSCOPY 09/19/[address] Hyde DILATION AND CURETTAGE OF UTERUS 05/18/2019 HYSTEROSCOPY 12/23/2021 LEG AMPUTATION THROUGH KNEE Right 06/16/2019 WISDOM TOOTH EXTRACTION No family history on file. Objective BP 137/75 (BP Location: Left arm, Patient Position: Sitting, BP Cuff Size: Large adult) Physical Exam Vitals reviewed. Constitutional: General: He is not in acute distress. Appearance: Normal appearance. He is not ill-appearing. Eyes: General: No scleral icterus. Right eye: No discharge. Left eye: No discharge. Cardiovascular: Rate and Rhythm: Normal rate and regular rhythm. Pulses: Normal pulses. Heart sounds: Normal heart sounds. No murmur heard. No friction rub. Pulmonary: Effort: Pulmonary effort is normal. No respiratory distress. Breath sounds: Normal breath sounds. No stridor. Musculoskeletal: Cervical back: Normal range of motion and neck supple. No rigidity or tenderness. Skin: General: Skin is warm and dry. Coloration: Skin is not jaundiced or pale. Comments: Right aka Neurological: General: No focal deficit present. Mental Status: He is alert and oriented to person, place, and time. Cranial Nerves: No cranial nerve deficit. Sensory: No sensory deficit. Data Reviewed and Summarized Labs: Latest Reference Range & Units 12/23/21 08:26 SODIUM 135 - 145 mmol/L 137 POTASSIUM 3.5 - 5.1 mmol/L 4.6 CHLORIDE 98 - 107 mmol/L 105 Carbon Dioxide (CO2) 22 - 30 mmol/L 25 ANION GAP 3 - 13 mmol/L 8 Urea Nitrogen (BUN) 9 - 20 mg/dL 19 Creatinine 0.52 - 1.25 mg/dL 0.73 EGFR >60 mL/min >90.0 [facility] [employer] EGFR IF NONAFRICAN RWANDAN >60 mL/min >90.0 GLUCOSE 70 - 100 mg/dL 119 (H) CALCIUM 8.4 - 10.4 mg/dL 9.4 (H): Data is abnormally high Latest Reference Range & Units 08/29/20 00:00 11/23/20 03:51 07/20/22 00:00 HEMOGLOBIN A1C 5.7 % 9.9 10.0 ! 10.1 ! (E) !: Data is abnormal (E): External lab result Imaging/Testing: Geronimo Lee MD documented in this [facility]01-21-2021 NoteHospitalist Discharge Summary Will Jacinto : 1965 Admit date: 11/22/2020 Discharge date: 11/28/2020 Admitting Physician: Art Stapleton MD Primary Care Physician: Jared Guzman MD Discharge Diagnoses: 1. Abdominal pain, diabetic gastroparesis 2. Insulin-dependent diabetes with severe hyperglycemia 3. Chest pain, atypical -resolved. 4. Dysfunctional uterine bleeding in transgender male, hx of endometrial hyperplasia 5. Morbid obesity, obstructive sleep apnea on no mask 6. S/p RLE AKA 7. HTN 8. HPL 9. Depression/schizophrenia/bipolar type 1 10. Hx of chronic LLE cellulitis/lymphedema 11. Debility ? Hospital Course: Improved. This 55-year-old transgender male, biologically female, presented [facility] after abdominal pain, out of control glucose readings and reported mental status change. However, EMS in the hospital reported that he was alert and oriented x3, however, he says that recently he has had increasing abdominal distention and distress and he noticed that his glucoses have been harder and harder to control. Pt was admitted to [facility]. Pt had dysfunctinal uterine bleeding and transferred to [facility] for Video Manager eval. Also had ab pain and found to have ileus. Seen by GI and recommended reglan. Pt had BMs. abd pain better. Advance diet to GI soft Seen by Video Manager and had hysteroscopy with biopsy done KUB improving. Follow today. Cont laxative regimen. KUB improved Seen by GI -started reglan Cont PPI Endocrinology following for hyperglycemia Pt denied any chest pain. Troponin negative. Seen by cardiology Added PT/OT Pt is tolerating diet well and he will be discharged today in stable condition. Dietary Nutrition Supplements: Diabetic Oral Supplement DIET GI SOFT; Vitals: BP (!) 163/72 Pulse 70 Temp 97.2 ?F (36.2 ?C) (Temporal) Resp 18 Ht 5' 6" (1.676 m) Wt (!) 317 lb 4.8 oz (143.9 kg) SpO2 92% BMI 51.21 kg/m? Pulse Ox: SpO2 Av.8 % Min: 92 % Max: 97 % Supplemental O2: General appearance:?alert and cooperative with exam Lungs:?clear to auscultation bilaterally Heart:?regular rate and rhythm, S1, S2 normal, no murmur, click, rub or gallop, no chest wall tenderness Abdomen:?soft, non-tender; bowel sounds normal; no masses, ?no organomegaly Extremities:?Chronic LLE edema, + venous stasis changes, s/p R AKA Neurologic:?No obvious focal neurologic deficits. No results for input(s): WBC, HGB, PLT in the last 72 hours. Recent Labs 11/26/20 0000 11/27/20 0316 11/28/20 0322 NA 130* 132* 134* K 3.9 4.2 4.3 CL 98 104 105 CO2 25 21* 25 BUN 10 13 10 CREATININE 0.63 0.57 0.66 GLUCOSE 188* 225* 100 Recent Labs 11/26/20 0000 11/27/20 0316 11/28/20 0322 AST 29 26 26 ALT 33 34 30 BILITOT 0.5 0.6 0.6 ALKPHOS 88 97 77 Lab Results Component Value Date TRIG 190 08/23/2020 HDL 31 08/23/2020 LDLCALC 56 08/23/2020 CHOL 125 08/23/2020 No results found for: PHART, PO2ART, DCZ6VAK No results for input(s): INR in the last 72 hours. No results for input(s): DDIMER in the last 72 hours. No components found for: HGBA1C Lab Results Component Value Date TSH 2.356 11/26/2020 Urine Culture: Results for orders placed or performed during the hospital encounter of 09/06/18 Urine Culture Specimen: Urine, clean catch Result Value Ref Range Urine Culture, Routine Proteus mirabilis (A) Urine Culture, Routine >100,000 CFU/ml Urine Culture, Routine Enterococcus faecium (A) Urine Culture, Routine 10,000-50,000 CFU/ml Susceptibility testing performed only upon request for cultures with multiple types of microorganisms below 100,000 CFU/ml. Susceptibility Proteus mirabilis - BACTERIAL SUSCEPTIBILITY PANEL BY TULIO amikacin <=2 Sensitive amoxicillin-clavulanate 8 Sensitive ampicillin >=32 Resistant ampicillin-sulbactam 8 Sensitive aztreonam <=1 Sensitive ceFAZolin 8 Resistant cefepime <=1 Sensitive cefTRIAXone <=1 Sensitive ciprofloxacin >=4 Resistant ertapenem <=0.5 Sensitive gentamicin <=1 Sensitive levofloxacin >=8 Resistant meropenem <=0.25 Sensitive nitrofurantoin Resistant piperacillin-tazobactam <=4 Sensitive trimethoprim-sulfamethoxazole >=320 Resistant Significant Diagnostic Studies: Xr Abdomen (kub) (single Ap View) Result Date: 11/27/2020 Patient Name: WILL JACINTO [facility]#: [id number] Diagnostic Radiology ACCESSION EXAM DATE/TIME PROCEDURE ORDERING PROVIDER [phone] 11/27/2020 08:28 EST CR Abdomen AP MD JD, [facility] CPT code 53275 Reason For Exam (CR Abdomen AP) ileus Report ABDOMEN -1 VIEW: CLINICAL INDICATION: Ileus TECHNIQUE: 1 view of abdomen and pelvis COMPARISON: November 25, 2020 FINDINGS: Overall interval decrease in the amount of large and small bowel gas, which is in a nonobstructed pattern. No abnormal soft tissue calcifications are identified. Multilevel thoracolumbar degenerative change. IMP (more content not included)...[facility] noteNo assessment information availableWProMedica [facility] Work Phone: Evaluation note* Diagnosis Dental caries- Primary Unspecified dental [facility] Diagnosis Type 2 diabetes mellitus with hyperglycemia, with long-term current use of insulin ([facility]) ([facility])- Primary Mixed hyperlipidemia Primary hypertension Unspecified essential hypertension [facility] Diagnosis Abdominal pain, generalized- Primary Gastroparesis [facility] Diagnosis Chest pain, unspecified type Chest pain, unspecified type [facility] Diagnosis Pyelonephritis- Primary Unspecified pyelonephritis Upper abdominal pain Nausea Nausea alone [facility] Diagnosis Upper abdominal pain- Primary Upper abdominal pain Hypoglycemia Hypoglycemia, unspecified Abdominal pain Abdominal pain, unspecified site [facility] Diagnosis Hypoglycemia due to insulin- Primary Hypoglycemia Hypoglycemia, unspecified Hypothermia, initial encounter Altered mental status, unspecified altered mental status type intermediate (current) use of antibiotics Hypothermia, not associated with low environmental temperature Diabetic gastroparesis associated with type 2 diabetes mellitus ([facility]) ([facility]) Type II or unspecified type diabetes mellitus with neurological manifestations, not stated as uncontrolled Type 2 diabetes mellitus with hyperglycemia, with long-term current use of insulin ([facility]) Class 3 severe obesity due to excess calories with serious comorbidity and body mass index (BMI) of 60.0 to 69.9 in adult ([facility]) Acinetobacter lwoffi infection Infection due to other gram-negative organisms in conditions classified elsewhere and of unspecified site Bacteremia due to Gram-negative bacteria Sepsis without acute organ dysfunction ([facility]) documented in this encounter [facility] note* Diagnosis Type 2 diabetes mellitus with hyperglycemia, with long-term current use of insulin ([facility])- Primary Mixed hyperlipidemia Primary hypertension Unspecified essential hypertension [facility] Diagnosis Nausea vomiting and diarrhea- Primary Dehydration [facility] Diagnosis Nausea with vomiting, unspecified [facility] Diagnosis Nausea and vomiting, unspecified vomiting type- Primary [facility] Diagnosis Nausea and vomiting, unspecified vomiting type- Primary Cystitis Unspecified cystitis [facility]* Diagnosis Hypoglycemia- Primary Hypoglycemia, unspecified [facility] Diagnosis Nausea with vomiting, unspecified- Primary Nausea with vomiting, unspecified [facility] Diagnosis Lung nodule- Primary Other diseases of lung, not elsewhere classified JOHN (obstructive sleep apnea) Obstructive sleep apnea (adult) (pediatric) Morbid obesity with BMI of 45.0-49.9, adult ([facility]) documented in this encounter [facility] note* Diagnosis Solitary pulmonary nodule- Primary [facility] Diagnosis Acute cholecystitis- Primary Acute cholecystitis [facility]* Diagnosis Hypoglycemic episode in patient with diabetes mellitus (HCC)- Primary [facility] Diagnosis Cholecystitis- Primary Cholecystitis, unspecified [facility]* Diagnosis History of cholecystitis- Primary [facility] Diagnosis Cholecystitis- Primary Cholecystitis, unspecified [facility] Diagnosis Cholecystitis- Primary Cholecystitis, unspecified Morbid obesity (HCC) Morbid obesity Class 3 severe obesity with serious comorbidity and body mass index (BMI) of 50.0 to 59.9 in adult, unspecified obesity type (HCC) [facility]* Diagnosis Fecal occult blood test positive- Primary History of anemia Personal history of diseases of blood and blood-forming organs Calculus of gallbladder without cholecystitis without obstruction BMI 50.0-59.9, adult (HCC) [facility]* Diagnosis Type 2 diabetes mellitus with hyperglycemia, with long-term current use of insulin (HCC)- Primary Type 2 diabetes mellitus with diabetic autonomic neuropathy, with long-term current use of insulin (HCC) Microalbuminuria Proteinuria Essential hypertension Unspecified essential hypertension Mixed hyperlipidemia Class 3 severe obesity due to excess calories with serious comorbidity and body mass index (BMI) of 45.0 to 49.9 in adult (HCC) Other fecal abnormalities Personal history of diseases of the blood and blood-forming organs and certain disorders involving the immune mechanism Calculus of gallbladder without cholecystitis without obstruction Body mass index (BMI) 50.0-59.9, adult (HCC) [facility]* Diagnosis PAD (peripheral artery disease) (HCC)- Primary Unspecified peripheral vascular disease Hx of AKA (above knee amputation), right (HCC) Lymphedema of left leg Morbid obesity (HCC) Morbid obesity Other fecal abnormalities Personal history of diseases of the blood and blood-forming organs and certain disorders involving the immune mechanism Calculus of gallbladder without cholecystitis without obstruction Body mass index (BMI) 50.0-59.9, adult (HCC) [facility]* Diagnosis PAD (peripheral artery disease) (HCC) Unspecified peripheral vascular disease Other fecal abnormalities Personal history of diseases of the blood and blood-forming organs and certain disorders involving the immune mechanism Calculus of gallbladder without cholecystitis without obstruction Body mass index (BMI) 50.0-59.9, adult (HCC) [facility]* Diagnosis Type 2 diabetes mellitus with hyperglycemia, with long-term current use of insulin (HCC)- Primary Type 2 diabetes mellitus with diabetic autonomic neuropathy, with long-term current use of insulin (HCC) Hypertension associated with type 2 diabetes mellitus (HCC) Mixed diabetic hyperlipidemia associated with type 2 diabetes mellitus (HCC) Class 3 severe obesity due to excess calories with serious comorbidity and body mass index (BMI) of 45.0 to 49.9 in adult Microalbuminuria Proteinuria Other fecal abnormalities Personal history of diseases of the blood and blood-forming organs and certain disorders involving the immune mechanism Calculus of gallbladder without cholecystitis without obstruction Body mass index (BMI) 50.0-59.9, adult (HCC) documented in this encounter [facility] Discharge instructions* Attachments The following attachments cannot be sent through Care Everywhere. * Kidney Infection [facility] Attachments The following attachments cannot be sent through Care Everywhere. * Acute Cystitis Discharge Instructions ([place]) * Nausea and Vomiting, Adult ED ([place]) [facility] HospitalReason for referral (narrative)No reason for referral information availableWProMedica Memorial Hospital Work Phone: Reason for visit Narrative* Imaging (Routine) - Closed Specialty Diagnoses / Procedures Referred By Joe t Referred To Contact Cardiology Diagnoses PAD (peripheral artery disease) ([facility]) Procedures Vascular US lower extremity arterial PVR Alejandro Mandel, JEREMY - [employer] [address] [place] [address] Phone: tel: fax: Referral ID Status Reason Start Date Expiration Date Visits Re quested Visits Authorized [id number] Closed 02/01/2025 02/01/2026 1 1 [facility] Summary Purpose Family History No Family History Records FoundNo Family History Records FoundNo Family History Records FoundNo Family History Records FoundNo Family History Records FoundNo Family History Records FoundNo Family History Records FoundNo Family History Records FoundNo Family History Records Found Advance Directives No Advanced Directives Records FoundDocuments on File Type Date Recorded Patient Roll Tender Expl anation DNR (Do Not Resuscitate) 09/17/2020 Date Activated Date Inactivated Comments 12/31/2023 8:33 PM 01/11/2024 8:41 PM Date Activated Date Inactivated Comments 10/07/2023 4:58 PM 10/17/2023 2:13 AM Date Activated Date Inactivated Comments 08/17/2023 10:49 PM 08/19/2023 10:57 PM Date Activated Date Inactivated Comments 06/28/2023 8:48 AM 07/01/2023 4:24 PM Healthcare Agents on File Name Relationship [facility] Jovana Quesada (POA) [facility] Care Agent Documents on File Type Date Recorded Patient Roll Tender Expl anation Advance Directives and Living Will Power of Promotional Demonstrator Latest Code Status on File Code Status Date Activated Date Inactivated Comments Full Code 06/14/2019 6:51 PM 06/20/2019 9:23 PM Full Code 05/16/2019 6:59 PM 05/20/2019 11:51 PM Full Code 05/16/2019 8:10 AM 05/16/2019 9:40 AM Full Code 05/16/2019 6:16 AM 05/16/2019 8:09 AM Full Code 01/11/2019 10:40 PM 01/17/2019 5:31 PM Documents on File Type Date Recorded Patient Roll Tender Expl anation ACP-Advance Directive ACP-Power of Promotional Demonstrator Latest Code Status on File Code Status Date Activated Date Inactivated Comments Full Code 09/18/2020 1:15 AM Full Code 06/14/2019 6:51 PM 06/20/2019 9:23 PM Documents on File Type Date Recorded Patient Roll Tender Expl anation ACP-Advance Directive ACP-Power of Promotional Demonstrator DNR Documentation 10/01/2020 12:28 PM Latest Code Status on File Code Status Date Activated Date Inactivated Comments Full Code 11/23/2020 12:27 AM Full Code 09/18/2020 1:15 AM 09/30/2020 11:20 PM Latest Code Status on File Code Status Date Activated Date Inactivated Comments Full Code 11/23/2020 12:27 AM 11/29/2020 4:21 AM Latest Code Status on File Code Status Date Activated Date Inactivated Comments Full Code 06/14/2019 6:51 PM Documents on File Type Date Recorded Patient Roll Tender Expl anation DNR (Do Not Resuscitate) 09/17/2020 Latest Code Status on File Code Status Date Activated Date Inactivated Comments Full Code 06/28/2023 8:48 AM Latest Code Status on File Code Status Date Activated Date Inactivated Comments Full Code 06/28/2023 8:48 AM 07/01/2023 4:24 PM Latest Code Status on File Code Status Date Activated Date Inactivated Comments Full Code 08/17/2023 10:49 PM 08/19/2023 10:57 PM Code Status History Code Status Date Activated Date Inactivated Comments Full Code 06/28/2023 8:48 AM 07/01/2023 4:24 PM Latest Code Status on File Code Status Date Activated Date Inactivated Comments Full Code 10/07/2023 4:58 PM Code Status History Code Status Date Activated Date Inactivated Comments Full Code 08/17/2023 10:49 PM 08/19/2023 10:57 PM Full Code 06/28/2023 8:48 AM 07/01/2023 4:24 PM Latest Code Status on File Code Status Date Activated Date Inactivated Comments Full Code 10/07/2023 4:58 PM 10/17/2023 2:13 AM Code Status History Code Status Date Activated Date Inactivated Comments Full Code 08/17/2023 10:49 PM 08/19/2023 10:57 PM Full Code 06/28/2023 8:48 AM 07/01/2023 4:24 PM Healthcare Agents on File Name Relationship Healthcare Agent Relationshi p Communication Jovana (POA) Quesada Relative Health Care Agent Healthcare Agents on File Name Relationship Healthcare Agent Relationshi p Communication Jovana (POA) [place] Relative Health Care Agent Healthcare Agents on File Name Relationship Healthcare Agent Relationshi p Communication Jovana (POA) [place] Relative Health Care Agent Healthcare Agents on File Name Relationship Healthcare Agent Relationshi p Communication Jovana (POA) [place] Relative Health Care Agent Latest Code Status on File Code Status Date Activated Date Inactivated Comments Full Code 10/07/2023 4:58 PM 10/17/2023 2:13 AM Healthcare Agents on File Name Relationship Healthcare Agent Relationshi p Communication Jovana (POA) [place] Relative Health Care Agent Healthcare Agents on File Name Relationship Healthcare Agent Relationshi p Communication Jovana (POA) [place] Relative Health Care Agent Healthcare Agents on File Name Relationship Healthcare Agent Relationshi p Communication Jovana Quesada (POA) [facility]iece Health Care Agent Healthcare Agents on File Name Relationship Healthcare Agent Relationshi p Communication Jovana Quesada (POA) [facility] Health Care Agent Latest Code Status on File Code Status Date Activated Date Inactivated Comments Full Code 12/31/2023 8:33 PM Code Status History Code Status Date Activated Date Inactivated Comments Full Code 10/07/2023 4:58 PM 10/17/2023 2:13 AM Full Code 08/17/2023 10:49 PM 08/19/2023 10:57 PM Full Code 06/28/2023 8:48 AM 07/01/2023 4:24 PM Healthcare Agents on File Name Relationship Healthcare Agent Relationshi p Communication Jovana Quesada (POA) [facility] Health Care Agent Healthcare Agents on File Name Relationship Healthcare Agent Relationshi p Communication Jovana Quesada (POA) [facility] Health Care Agent Latest Code Status on File Code Status Date Activated Date Inactivated Comments Full Code 12/31/2023 8:33 PM 01/11/2024 8:41 PM Healthcare Agents on File Name Relationship Healthcare Agent Relationshi p Communication Jovana Quesada (POA) [facility] Health Care Agent Healthcare Agents on File Name Relationship Healthcare Agent Relationshi p Communication Jovana Quesada (POA) [facility] Health Care Agent Healthcare Agents on File Name Relationship Healthcare Agent Relationshi p Communication Jovana Quesada (POA) [facility] Health Care Agent Healthcare Agents on File Name Relationship Healthcare Agent Relationshi p Communication Jovana Quesada (POA) [facility] Health Care Agent Healthcare Agents on File Name Relationship Healthcare Agent Relationshi p Communication Jovana Quesada (POA) [facility] Health Care Agent Latest Code Status on File Code Status Date Activated Date Inactivated Comments Full Code 12/31/2023 8:33 PM 01/11/2024 8:41 PM Code Status History Code Status Date Activated Date Inactivated Comments Full Code 10/07/2023 4:58 PM 10/17/2023 2:13 AM Full Code 08/17/2023 10:49 PM 08/19/2023 10:57 PM Full Code 06/28/2023 8:48 AM 07/01/2023 4:24 PM Healthcare Agents on File Name Relationship Healthcare Agent Relationshi p Communication Jovana Quesada (POA) [facility] Health Care Agent Healthcare Agents on File Name Relationship Healthcare Agent Relationshi p Communication Jovana Quesada (POA) [facility] Health Care Agent Date Activated Date Inactivated Comments 12/31/2023 8:33 PM 01/11/2024 8:41 PM Date Activated Date Inactivated Comments 10/07/2023 4:58 PM 10/17/2023 2:13 AM Date Activated Date Inactivated Comments 08/17/2023 10:49 PM 08/19/2023 10:57 PM Date Activated Date Inactivated Comments 06/28/2023 8:48 AM 07/01/2023 4:24 PM Healthcare Agents on File Name Relationship Healthcare Agent Relationshi p Communication Jovana Quesada (POA) [facility] Health Care Agent Healthcare Agents on File Name Relationship Healthcare Agent Relationshi p Communication Jovana Quesada (POA) [place] Agent Date Activated Date Inactivated Comments 10/19/2024 12:18 AM Question Answer Comments ICU transfer: No Date Activated Date Inactivated Comments 10/18/2024 9:12 PM 10/19/2024 12:18 AM Date Activated Date Inactivated Comments 12/31/2023 8:33 PM 01/11/2024 8:41 PM Date Activated Date Inactivated Comments 10/07/2023 4:58 PM 10/17/2023 2:13 AM Date Activated Date Inactivated Comments 08/17/2023 10:49 PM 08/19/2023 10:57 PM Date Activated Date Inactivated Comments 10/19/2024 12:18 AM 10/23/2024 5:24 PM Healthcare Agents on File Name Relationship Healthcare Agent Relationshi p Communication Jovana Quesada (POA) [facility] Agent Documents on File Type Date Recorded Patient Roll Tender Expl anation DNR (Do Not Resuscitate) 10/24/2024 12:44 PM DNR (Do Not Resuscitate) 09/17/2020 Healthcare Agents on File Name Relationship Healthcare Agent Relationshi p Communication Jovana Quesada (POA) [facility] Agent Documents on File Type Date Recorded Patient Roll Tender Expl anation DNR (Do Not Resuscitate) 2024 1:55 PM DNR (Do Not Resuscitate) 10/24/2024 12:44 PM DNR (Do Not Resuscitate) 09/17/2020 Documents on File Type Date Recorded Patient Roll Tender Expl anation DNR (Do Not Resuscitate) 2024 1:55 PM DNR (Do Not Resuscitate) 10/24/2024 12:44 PM DNR (Do Not Resuscitate) 09/17/2020 Date Activated Date Inactivated Comments 10/19/2024 12:18 AM 10/23/2024 5:24 PM Question Answer Comments ICU transfer: No Date Activated Date Inactivated Comments 10/18/2024 9:12 PM 10/19/2024 12:18 AM Date Activated Date Inactivated Comments 12/31/2023 8:33 PM 01/11/2024 8:41 PM Date Activated Date Inactivated Comments 10/07/2023 4:58 PM 10/17/2023 2:13 AM Date Activated Date Inactivated Comments 08/17/2023 10:49 PM 08/19/2023 10:57 PM Healthcare Agents on File Name Relationship Healthcare Agent Relationshi p Communication Jovana Quesada (POA) [facility] Care Agent Healthcare Agents on File Name Relationship Healthcare Agent Relationshi p Communication Jovana Quesada (POA) [facility] Health Care Agent Healthcare Agents on File Name Relationship Healthcare Agent Relationshi p Communication Jovana Quesada (POA) [facility] Health Care Agent Date Activated Date Inactivated Comments 11/30/2024 9:10 PM Date Activated Date Inactivated Comments 10/19/2024 12:18 AM 10/23/2024 5:24 PM Question Answer Comments ICU transfer: No Date Activated Date Inactivated Comments 10/18/2024 9:12 PM 10/19/2024 12:18 AM Date Activated Date Inactivated Comments 12/31/2023 8:33 PM 01/11/2024 8:41 PM Date Activated Date Inactivated Comments 10/07/2023 4:58 PM 10/17/2023 2:13 AM Healthcare Agents on File Name Relationship Healthcare Agent Relationshi p Communication Jovana Quesada (POA) [facility] Health Care Agent Documents on File Type Date Recorded Patient Roll Tender Expl anation DNR (Do Not Resuscitate) 12/04/2024 9:54 AM DNR (Do Not Resuscitate) 2024 1:55 PM DNR (Do Not Resuscitate) 10/24/2024 12:44 PM DNR (Do Not Resuscitate) 09/17/2020 Date Activated Date Inactivated Comments 11/30/2024 9:10 PM 12/01/2024 7:42 PM Healthcare Agents on File Name Relationship Healthcare Agent Relationshi p Communication Jovana Quesada (POA) [facility] Health Care Agent Documents on File Type Date Recorded Patient Roll Tender Expl anation DNR (Do Not Resuscitate) 12/04/2024 9:54 AM DNR (Do Not Resuscitate) 2024 1:55 PM DNR (Do Not Resuscitate) 10/24/2024 12:44 PM DNR (Do Not Resuscitate) 09/17/2020 Date Activated Date Inactivated Comments 11/30/2024 9:10 PM 12/01/2024 7:42 PM Date Activated Date Inactivated Comments 10/19/2024 12:18 AM 10/23/2024 5:24 PM Question Answer Comments ICU transfer: No Date Activated Date Inactivated Comments 10/18/2024 9:12 PM 10/19/2024 12:18 AM Date Activated Date Inactivated Comments 12/31/2023 8:33 PM 01/11/2024 8:41 PM Date Activated Date Inactivated Comments 10/07/2023 4:58 PM 10/17/2023 2:13 AM Healthcare Agents on File Name Relationship Healthcare Agent Relationshi p Communication Jovana Quesada (POA) [facility] Care Agent Healthcare Agents on File Name Relationship Healthcare Agent Relationshi p Communication Jovana Quesada (POA) [facility] Health Care Agent Healthcare Agents on File Name Relationship Healthcare Agent Relationshi p Communication Jovana Quesada (POA) [facility] Health Care Agent Healthcare Agents on File Name Relationship Healthcare Agent Relationshi p Communication Jovana Quesada (POA) [facility] Health Care Agent Healthcare Agents on File Name Relationship Healthcare Agent Relationshi p Communication Jovana Quesada (POA) [facility] Care Agent Healthcare Agents on File Name Relationship Healthcare Agent Relationshi p Communication Jovana Quesada (POA) [facility] Care Agent Healthcare Agents on File Name Relationship Healthcare Agent Relationshi p Communication Jovana Quesada (POA) [facility]iece Health Care Agent Healthcare Agents on File Name Relationship Healthcare Agent Relationshi p Communication Jovana Quesada (POA) Niece Health Care Agent Healthcare Agents on File Name Relationship Healthcare Agent Relationshi p Communication Jovana Quesada (POA) [facility] Care Agent Discharge Instructions * Attachments The following attachments cannot be sent through Care Everywhere. * Post-op Infection (Swiss) documented in this encounter* Instructions* Eva Awan RN - 01/02/2020 U500 Insulin: The physician managing your U500 insulin should give specific recommendations before your surgery. Please call the managing physician's office if you do not already have instructionsin regards to your insulin. Please bring your [employer] Surgical Information folder on the day of surgery. Please supriya the last dose taken (date and time ) on your Daily Medications List provided in your After Visit Summary. Please bring a photo ID and insurance information Do NOT take the following medications on the morning of surgery: vitamins, supplements, furosemide,lisinopril TAKE the following medications the morning of your surgery: Abilify, megestrol, fluoxetine You may take your prescription pain medications. You may take Tylenol (acetaminophen) if needed forpain. No Motrin, ibuprofen, or Advil 24 hours prior to surgery, or longer if instructed by your surgeon. No Aleve or Naprosyn 3 days prior to surgery, or longer if instructed by your surgeon. If you are on BLOOD THINNERS or ASPIRIN, stop aspirin 5 days prior to surgery- last dose will be on 01/03/2020 Additional instructions: find out exact weight of your wheelchair You will receive a reminder call the day before surgery with your Same Day Surgery arrival time. If you have specific questions, please call your surgeon. * Attachments The following attachments cannot be sent through Care Everywhere. * Hysteroscopy: Pre-op (Swiss) * levonorgestrel intrauterine system (Swiss) documented in this encounter* Discharge Instr - CHRISTY* Valeria Calzada RN - 09/18/2020 11:40 AM EST Continuity of Care Form Patient Name: Will Jacinto : 1965 Admit date: 09/17/2020 Discharge date: 09/30/20 Code Status Order: Full Code Advance Directives: Advance Care Flowsheet Documentation Date/Time Healthcare Directive Type of Healthcare Directive Copy in Chart Healthcare Agent Appointed Healthcare Agent's Name Healthcare Agent's Phone Number 09/18/20 0059 No, patient does not have an advance directive for healthcare treatment -- -- -- -- -- Admitting Physician: Nabil Hill DO PCP: Jared Guzman MD Discharging Nurse: Valeria Calzada Discharging Hospital Unit/Room#: 268/2681 Discharging Unit Phone Number: [phone] Emergency Contact: Extended Emergency Contact Information Primary Emergency Contact: Apoorva Lubin [facility] Mobile Relation: Other Secondary Emergency Contact: Jovana Quesada Relation: Niece/Nephew Past Surgical History: Past Surgical History: Procedure Laterality Date ABOVE KNEE AMPUTATION Right 06/16/2019 ABSCESS DRAINAGE Right 09/09/2018 FOOT; [facility] DILATION AND CURETTAGE OF UTERUS 05/18/2019 WISDOM TOOTH EXTRACTION Immunization History: Immunization History Administered Date(s) Administered Influenza, Quadv, 6 mo and older, IM, PF (Flulaval, Fluarix) 01/14/2019 Active Problems: Patient Active Problem List Diagnosis Code Cellulitis L03.90 Chronic osteomyelitis ([facility]) M86.60 Uncontrolled type 2 diabetes mellitus with complication ([facility]) E11.8, E11.65 Type 2 diabetes mellitus with hyperglycemia, with long-term current use of insulin (HCC) E11.65, Z79.4 Class 3 severe obesity due to excess calories with serious comorbidity and body mass index (BMI) of50.0 to 59.9 in adult ([facility]) E66.01, Z68.43 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 ([facility]) E11.51 Cellulitis and abscess of lower extremity L03.119, L02.419 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 Chronic acquired lymphedema I89.0 Left leg cellulitis L03.116 Class 3 severe obesity due to excess calories with serious comorbidity and body mass index (BMI) of60.0 to 69.9 in adult ([facility]) E66.01, Z68.44 Post-menopausal bleeding N95.0 Hyperglycemia R73.9 Diabetic foot infection ([facility]) E11.628, L08.9 S/P AKA (above knee amputation) unilateral, right ([facility]) Z89.611 Morbid obesity ([facility]) E66.01 Ileus ([facility]) K56.7 Isolation/Infection: Isolation Contact Patient Infection Status Infection Onset Added Last Indicated Last Indicated By Review Planned Expiration Resolved 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 Maintain contact precautions: private room with each admission. MRSA 06/25/18 06/25/18 Roxana Mcnally RN 06-25-2018 MRSA wound foot. Maintain hand hygiene with adherence to strict hand hygiene and disinfection of equipment.. Contact precautions if unable to contain excretions or secretions.Soarian. Nurse Assessment: Last Vital Signs: BP 135/73 Pulse 82 Temp 97.3 F (36.3 C) (Temporal) Resp 20 Ht 5' 6" (1.676 m) Wt (!) 360 lb (163.3 kg) SpO2 98% BMI 58.11 kg/m Last documented pain score (0-10 scale): Pain Level: 10 Last Weight: Wt Readings from Last 1 Encounters: 09/17/20 (!) 360 lb (163.3 kg) Mental Status: oriented and alert IV Access: - None Nursing Mobility/ADLs: Walking Dependent Transfer Dependent Bathing Dependent Dressing Dependent Toileting Dependent Feeding Assisted Structural Iron Erector Assisted Med Delivery none Wound Care Documentation and Therapy: Wound 06/14/19 Other (Comment) Foot Lateral;Right (Active) Number of days: 462 Wound 09/01/18 Other (Comment) Leg Right;Posterior (Active) Number of days: 748 Wound Venous ulcer Leg Left;Lower (Active) Number of days: Wound 01/12/19 Ankle Dorsal;Left deep tissue injury (Active) Number of days: 614 Elimination: Continence: Bowel: No Bladder: No Urinary Catheter: None Colostomy/Ileostomy/Ileal Conduit: No Date of Last BM: 09/24/20 No intake or output data in the 24 hours ending 09/18/20 1140 No intake/output data recorded. Safety Concerns: None Impairments/Disabilities: Amputation - R AKA Nutrition Therapy: Current Nutrition Therapy: - Oral Diet: Carb Control 4 carbs/meal (1800kcals/day) Routes of Feeding: Oral Liquids: No Restrictions Daily Fluid Restriction: no Last Modified Barium Swallow with Video (Video Swallowing Test): not done Treatments at the Time of Hospital Discharge: Respiratory Treatments: Oxygen Therapy: is not on home oxygen therapy. Ventilator: - No ventilator support Rehab Therapies: Physical Therapy and Occupational Therapy Weight Bearing Status/Restrictions: No weight bearing restirctions Other Medical Equipment (for information only, NOT a DME order): hospital bed Other Treatments: Patient's personal belongings (please select all that are sent with patient): None RN SIGNATURE: CASE MANAGEMENT/SOCIAL WORK SECTION Inpatient Status Date: Observation Readmission Risk Assessment Score: Readmission Risk Risk of Unplanned Readmission: 0 Discharging to Facility/ Agency Name: [facility] Address: [address] [place] [address] Dialysis Facility (if applicable) Name: Address: Dialysis Schedule: Phone: Fax: Education Consultant/Frame Bender signature: at11:40 AM EST PHYSICIAN SECTION Prognosis: Fair Condition at Discharge: Stable Rehab Potential (if transferring to Rehab): Fair Recommended Labs or Other Treatments After Discharge: none Physician Certification: I certify the above information and transfer of Will Jacinto is necessary for the continuing treatment of the diagnosis listed and that he requires Snf Facility for greater 30 days. Update Admission H&P: No change in H&P PHYSICIAN SIGNATURE: * Additional Instructions* Анна Villela MD - 09/30/2020 Please fax BG logs to Dr. Lee at [phone] in 2 weeks. documented in this encounter* Discharge Instr - CHRISTY* Bishnu Leone RN - 11/25/2020 8:08 AM EST Continuity of Care Form Patient Name: Will Jacinto : 1965 Admit date: 11/22/2020 Discharge date: 11/28/20 Code Status Order: Full Code Advance Directives: Advance Care Flowsheet Documentation Date/Time Healthcare Directive Type of Healthcare Directive Copy in Chart Healthcare Agent Appointed Healthcare Agent's Name Healthcare Agent's Phone Number 11/22/20 2306 No, patient does not have an advance directive for healthcare treatment -- -- -- -- -- Admitting Physician: Art Stapleton MD PCP: Jared Guzman MD Discharging Nurse: Bishnu [facility] Hospital Unit/Room#: 158/[id number] Discharging Unit Emergency Contact: Extended Emergency Contact Information Primary Emergency Contact: Apoorva Lubin [facility] Mobile Relation: Other Secondary Emergency Contact: Jovana Quesada Relation: Niece/Nephew Past Surgical History: Past Surgical History: Procedure Laterality Date ABOVE KNEE AMPUTATION Right 06/16/2019 ABSCESS DRAINAGE Right 09/09/2018 FOOT; [facility] DILATION AND CURETTAGE OF UTERUS 05/18/2019 ENDOSCOPY, COLON, DIAGNOSTIC 09/19/[address] Barrett BEST TOOTH EXTRACTION Immunization History: Immunization History Administered Date(s) Administered Influenza, Quadv, 6 mo and older, IM, PF (Flulaval, Fluarix) 01/14/2019 Active Problems: Patient Active Problem List Diagnosis Code Cellulitis L03.90 Chronic osteomyelitis (HCC) M86.60 Uncontrolled type 2 diabetes mellitus with complication (HCC) E11.8, E11.65 Type 2 diabetes mellitus with hyperglycemia, with long-term current use of insulin (HCC) E11.65, Z79.4 Class 3 severe obesity due to excess calories with serious comorbidity and body mass index (BMI) of50.0 to 59.9 in adult ([facility]) E66.01, Z68.43 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 (HCC) E11.51 Cellulitis and abscess of lower extremity L03.119, L02.419 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 Chronic acquired lymphedema I89.0 Left leg cellulitis L03.116 Class 3 severe obesity due to excess calories with serious comorbidity and body mass index (BMI) of60.0 to 69.9 in adult ([facility]) E66.01, Z68.44 Post-menopausal bleeding N95.0 Hyperglycemia R73.9 Diabetic foot infection ([facility]) E11.628, L08.9 S/P AKA (above knee amputation) unilateral, right ([facility]) Z89.611 Morbid obesity ([facility]) E66.01 Ileus ([facility]) K56.7 Nausea and vomiting R11.2 Esophagitis K20.90 Hypertension I10 Diabetic hyperosmolar non-ketotic state ([facility]) E11.00 Isolation/Infection: Isolation Contact Patient Infection Status Infection Onset Added Last Indicated Last Indicated By Review Planned Expiration Resolved 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 Maintain contact precautions: private room with each admission. MRSA 06/25/18 06/25/18 Roxana Mcnally RN 06-25-2018 MRSA wound foot. Maintain hand hygiene with adherence to strict hand hygiene and disinfection of equipment.. Contact precautions if unable to contain excretions or secretions.Soarian. Resolved COVID-19 Rule Out 11/22/20 11/22/20 11/22/20 Respiratory Panel, Molecular, with COVID-19 (Restricted: peds pts or suitable admitted adults) (Ordered) 11/23/20 Roxana Mcnally RN COVID-19 Rule Out 09/27/20 09/27/20 Verónica De Guzman RN 09/28/20 Roxana Mcnally RN Nurse Assessment: Last Vital Signs: BP 139/69 Pulse 71 Temp 99.5 F (37.5 C) (Temporal) Resp 17 Ht 5' 6" (1.676 m) Wt (!) 319 lb 12.8 oz (145.1 kg) SpO2 96% BMI 51.62 kg/m Last documented pain score (0-10 scale): Pain Level: 0 Last Weight: Wt Readings from Last 1 Encounters: 11/25/20 (!) 319 lb 12.8 oz (145.1 kg) Mental Status: oriented and alert IV Access: - None Nursing Mobility/ADLs: Walking Dependent Transfer Dependent Bathing Assisted Dressing Assisted Toileting Assisted Feeding Assisted Structural Iron Erector Assisted Med Delivery whole Wound Care Documentation and Therapy: Wound 06/14/19 Other (Comment) Foot Lateral;Right (Active) Number of days: 530 Wound 09/01/18 Other (Comment) Leg Right;Posterior (Active) Number of days: 816 Wound Venous ulcer Leg Left;Lower (Active) Number of days: Wound 01/12/19 Ankle Dorsal;Left deep tissue injury (Active) Number of days: 682 Elimination: Continence: Bowel: Yes Bladder: Yes Urinary Catheter: None Colostomy/Ileostomy/Ileal Conduit: No Date of Last BM: 11/26/20 Intake/Output Summary (Last 24 hours) at 11/25/2020 0808 Last data filed at 11/25/2020 0602 Gross per 24 hour Intake 2911 ml Output 1900 ml Net 1011 ml I/O last 3 completed shifts: In: 2911 [I.V.:2911] Out: 1900 [Urine:1900] Safety Concerns: None and At Risk for Falls Impairments/Disabilities: Amputation - right leg/AKA Nutrition Therapy: Current Nutrition Therapy: - Oral Diet: Carb control GI soft Routes of Feeding: Oral Liquids: Thin Liquids Daily Fluid Restriction: no Last Modified Barium Swallow with Video (Video Swallowing Test): not done Treatments at the Time of Hospital Discharge: Respiratory Treatments: none Oxygen Therapy: is not on home oxygen therapy. Ventilator: - No ventilator support Rehab Therapies: Physical Therapy, Occupational Therapy and when he was inpatient at the hospital Weight Bearing Status/Restrictions: No weight bearing restirctions Other Medical Equipment (for information only, NOT a DME order): none Other Treatments: none Patient's personal belongings (please select all that are sent with patient): None RN SIGNATURE: CASE MANAGEMENT/SOCIAL WORK SECTION Inpatient Status Date: Readmission Risk Assessment Score: Readmission Risk Risk of Unplanned Readmission: 21 Discharging to Facility/ Agency Name: [facility] [place] Address: [address] [address] Dialysis Facility (if applicable) Name: Address: Dialysis Schedule: Phone: Fax: Education Consultant/Frame Bender signature: PHYSICIAN SECTION Prognosis: Good Condition at Discharge: Stable Rehab Potential (if transferring to Rehab): Good Recommended Labs or Other Treatments After Discharge: Physician Certification: I certify the above information and transfer of Will Jacinto is necessary for the continuing treatment of the diagnosis listed and that he requires Snf Facility for less 30 days. Update Admission H&P: No change in H&P PHYSICIAN SIGNATURE: documented in this encounter* Discharge Instr - CHRISTY* Nicolle Gann RN - 06/16/2019 11:15 AM EDT Continuity of Care Form Patient Name: Will Jacinto : 1965 Admit date: 06/14/2019 Discharge date: 06/20/19 Code Status Order: Full Code Advance Directives: Admitting Physician: Jayesh Jordan MD PCP: Jared Guzman MD Discharging Nurse: Nicolle Dischsue Hospital Unit/Room#: [id number] Discharging Unit Emergency Contact: Extended Emergency Contact Information Primary Emergency Contact: Apoorva Lubin [facility] Mobile Relation: Other Secondary Emergency Contact: Jovana Quesada Relation: Niece/Nephew Past Surgical History: Past Surgical History: Procedure Laterality Date ABSCESS DRAINAGE Right 09/09/2018 FOOT; [facility] DILATION AND CURETTAGE OF UTERUS 05/18/2019 WISDOM TOOTH EXTRACTION Immunization History: Immunization History Administered Date(s) Administered Influenza, Quadv, 6 mo and older, IM, PF (Flulaval, Fluarix) 01/14/2019 Active Problems: Patient Active Problem List Diagnosis Code Cellulitis L03.90 Chronic osteomyelitis ([facility]) M86.60 Uncontrolled type 2 diabetes mellitus with complication ([facility]) E11.8, E11.65 Type 2 diabetes mellitus with hyperglycemia, with long-term current use of insulin ([facility]) E11.65, Z79.4 Class 3 severe obesity due to excess calories with serious comorbidity and body mass index (BMI) of50.0 to 59.9 in adult ([facility]) E66.01, Z68.43 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 ([facility]) E11.51 Cellulitis and abscess of lower extremity L03.119, L02.419 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 Chronic acquired lymphedema I89.0 Left leg cellulitis L03.116 Class 3 severe obesity due to excess calories with serious comorbidity and body mass index (BMI) of60.0 to 69.9 in adult ([facility]) E66.01, Z68.44 Post-menopausal bleeding N95.0 Hyperglycemia R73.9 Diabetic foot infection ([facility]) E11.628, L08.9 Isolation/Infection: Isolation Contact Patient Infection Status Infection Onset Added Last Indicated Last Indicated By Review Planned Expiration Resolved 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 Maintain contact precautions: private room with each admission. MRSA 06/25/18 06/25/18 Roxana Mcnally RN 06-25-2018 MRSA wound foot. Maintain hand hygiene with adherence to strict hand hygiene and disinfection of equipment.. Contact precautions if unable to contain excretions or secretions.Soarian. Nurse Assessment: Last Vital Signs: BP 120/78 Pulse 91 Temp 97.2 F (36.2 C) (Temporal) Resp 20 Ht 5' 6" (1.676 m) Wt (!) 378 lb 1.6 oz (171.5 kg) SpO2 100% BMI 61.03 kg/m Last documented pain score (0-10 scale): Pain Level: 0 Last Weight: Wt Readings from Last 1 Encounters: 06/16/19 (!) 378 lb 1.6 oz (171.5 kg) Mental Status: {IP PT MENTAL STATUS:55911} IV Access: {[facility] IV ACCESS:[id number]} Nursing Mobility/ADLs: Walking Assisted Transfer Assisted Bathing Assisted Dressing Assisted Toileting Assisted Feeding Assisted Structural Iron Erector Independent Med Delivery whole Wound Care Documentation and Therapy: Wound 06/14/19 Other (Comment) Foot Lateral;Right (Active) Wound Type Wound 06/16/2019 8:15 AM Wound Diabetic 06/16/2019 8:15 AM Dressing Status Intact;New drainage;Old drainage 06/16/2019 8:15 AM Dressing/Treatment Dry Dressing 06/15/2019 12:06 PM Drainage Description Serous 06/16/2019 8:15 AM Number of days: 2 Wound 09/01/18 Other (Comment) Leg Right;Posterior (Active) Number of days: 288 Wound Venous ulcer Leg Left;Lower (Active) Number of days: Wound 01/12/19 Ankle Dorsal;Left deep tissue injury (Active) Number of days: 154 Elimination: Continence: Bowel: No Bladder: Yes Urinary Catheter: None Colostomy/Ileostomy/Ileal Conduit: No Date of Last BM: No intake or output data in the 24 hours ending 06/16/19 1113 No intake/output data recorded. Safety Concerns: None Impairments/Disabilities: None Nutrition Therapy: Current Nutrition Therapy: - Oral Diet: Carb Control 3 carbs/meal (1500kcals/day) Routes of Feeding: Oral Liquids: Thin Liquids Daily Fluid Restriction: no Last Modified Barium Swallow with Video (Video Swallowing Test): not done Treatments at the Time of Hospital Discharge: Respiratory Treatments: Oxygen Therapy: is not on home oxygen therapy. Ventilator: - No ventilator support Rehab Therapies: Physical Therapy and Occupational Therapy Weight Bearing Status/Restrictions: No weight bearing restirctions Other Medical Equipment (for information only, NOT a DME order): {EQUIPMENT:[id number]} Other Treatments: Patient's personal belongings (please select all that are sent with patient): None RN SIGNATURE: MANAGEMENT/SOCIAL WORK SECTION Inpatient Status Date: 06/14/19 Readmission Risk Assessment Score: Readmission Risk Risk of Unplanned Readmission: 28 Discharging to Facility/ Agency Name: [facility] Address:[address] [address] Dialysis Facility (if applicable) Name: Address: Dialysis Schedule: Phone: Fax: Education Consultant/Frame Bender signature: {Esignature:[id number]} ICIAN SECTION Prognosis: Good Condition at Discharge: Stable Rehab Potential (if transferring to Rehab): Good Recommended Labs or Other Treatments After Discharge: Physician Certification: I certify the above information and transfer of Will Jacinto is necessary for the continuing treatment of the diagnosis listed and that he requires Snf Facility for greater 30 days. Update Admission H&P: No change in H&P PHYSICIAN SIGNATURE: * Additional Instructions* Jarek Katz MD - 06/16/2019 Kmsls-trv-Fqry Leg Amputation: What to Expect at Home Your Recovery An xbliw-yzu-jwrj amputation is surgery to remove your leg above the knee. Your doctor removed the leg while keeping as much healthy bone, skin, blood vessel, and nerve tissue as possible. After an efrer-nno-heof leg amputation, you will probably have bandages, a rigid dressing, or a cast over the remaining part of your leg (residual limb). The leg will be swollen for at least 4 weeks after your surgery. If you have a rigid dressing or cast, your doctor will set up regular visits to change the dressing or cast and check the healing. If you have elastic bandages, your doctor will tell you how to change them. You may have pain in your remaining limb. You also may think you have feeling or pain where your leg was. This is called phantom pain. It is common and may come and go for a year or longer. Your doctor can give you medicine for both types of pain. You may have already started a rehabilitation program (rehab). You will continue this under the guidance of your doctor or physical therapist. You will need to do a lot of work to recondition your muscles and relearn activities, balance, and coordination. Rehab can last as long as 1 year. You may have been fitted with a temporary artificial leg while you were still in the hospital. If this is the case, your doctor will teach you how to care for it. If you are getting an artificial leg, you may need to get used to it before you return to work and your other activities. You will probably not wear it all the time, so you will need to learn how to use a wheelchair, crutches, or other device. You will have to make changes in your home. Your workplace may be able to make allowances for you. Having your leg amputated is traumatic. Learning to live with new limitations can be hard and also find that it helps to talk with a person who has had an amputation. Remember that even though losing a limb is difficult, it does not change who you are or prevent youfrom enjoying life. You will have to adapt and learn new ways to do things, but you will still be able to work and take part in sports and activities. And you can still learn, love, play, and live life to its fullest. Many organizations can help you adjust to your new life. For example, you can find information at amputee-coalition.org. This care sheet gives you a general idea about how long it will take for you to recover. But each person recovers at a different pace. Follow the steps below to get better as quickly as possible. How can you care for yourself at home? Activity Be active. Talk to your doctor about what you can do. If you are active and use your remaining limb, it will heal faster. You may shower when your doctor okays it. Wash the remaining limb with soap and water, and pat it dry. You may need help doing this at first. You may need to adapt your car to your situation before you drive. You will probably be able to return to work and your usual routine when your remaining limb heals. This can be as soon as 4 to 8 weeks after surgery, but it may take longer. Diet You can eat your normal diet. If your stomach is upset, try bland, low-fat foods like plain rice, broiled chicken, toast, and yogurt. You may notice that your bowel movements are not regular right after your surgery. This is common. Try to avoid constipation and straining with bowel movements. Take a fiber supplement every day. If you have not had a bowel movement after a couple of days, ask your doctor about taking a mild laxative. Medicines Your doctor will tell you if and when you can restart your medicines. He or she will also give you instructions about taking any new medicines. If you take blood thinners, such as warfarin (Coumadin), clopidogrel (Plavix), or aspirin, be sure to talk to your doctor. He or she will tell you if and when to start taking those medicines again. Make sure that you understand exactly what your doctor wants you to do. Take pain medicines exactly as directed. ? If the doctor gave you a prescription medicine for pain, take it as prescribed. ? If you are not taking a prescription pain medicine, ask your doctor if you can take an [id number] medicine. If you think your pain medicine is making you sick to your stomach: ? Take your medicine after meals (unless your doctor has told you not to). ? Ask your doctor for a different pain medicine. If your doctor prescribed antibiotics, take them as directed. Do not stop taking them just because you feel better. You need to take the full course of antibiotics. Remaining limb care You may have bandages, a rigid dressing, or a cast on your remaining limb. Your doctor will tell you how to take care of it. Depending on your dressing and the doctor's instructions: ? Check your remaining limb daily for irritation, skin breaks, and redness. Tell your doctor about any problems you see. ? Wash your remaining limb with mild soap and warm water every night. Pat it dry. If you have a temporary artificial leg, remove it before you go to sleep. Exercise Rehabilitation is a series of exercises you do after your surgery. This helps you learn to use yourremaining limb and artificial leg. You will work with your doctor and physical therapist to plan this exercise program. To get the best results, you need to do the exercises correctly and as often and as long as your doctor tells you. Your rehab program will give you a number of exercises to do. Always do them as your therapist tells you. Other instructions Preventing contractures is very important. A contracture occurs when a joint becomes stuck in one position. If this happens, it may be hard or impossible to straighten your remaining limb and use an artificial leg. ? Make sure you put equal weight on both hips when you sit. Use firm chairs, and sit up straight. ? Keep your remaining limb flat with your legs together while you are lying on your back. ? Lie on your stomach as much as possible to stretch your hip joint. ? Do not sit for more than an hour or two. Stand, or lie on your stomach now and then. ? Do not put pillows under your hips or knees or between your thighs. Follow-up care is a bunch part of your treatment and safety. Be sure to make and go to all appointments, and call your doctor if you are having problems. It's also a good idea to know your test resultsand keep a list of the medicines you take. When should you call for help? Call 911 anytime you think you may need emergency care. For example, call if: You passed out (lost consciousness). You have chest pain, are short of breath, or you cough up blood. Call your doctor now or seek immediate medical care if: You have pain that does not get better after you take pain medicine. You are sick to your stomach or cannot drink fluids. You have loose stitches, or your incision comes open. You have signs of a blood clot in your leg (called a deep vein thrombosis), such as: ? Pain in your calf, back of the knee, thigh, or groin. ? Redness or swelling in your leg. You have signs of infection, such as: ? Increased pain, swelling, warmth, or redness. ? Red streaks leading from the incision. ? Pus draining from the incision. ? A fever. You bleed through your bandage. Watch closely for any changes in your health, and be sure to contact your doctor if you have any problems. Where can you learn more? Go to [email or web address] and sign in to your [employer] account. Enter K761 in the Search Health Information box to learn more about [id number] Leg Amputation: What to Expect at Home. If you do not have an account, please click on the "Sign Up Now" link. Current as of: July 28, 2018 Content Version: [id number] [employer]. Care instructions adapted under license by [employer]. If youhave questions about a medical condition or this instruction, always ask your healthcare professional. [employer] disclaims any warranty or liability for your use of this information. General Orthopedic Discharge Instructions The following instructions have been prepared to help you when you leave the hospital. These guidelines are for the post-surgery period. Activity: Ease into normal activity as tolerated. Medications: see medication instructions. Please be sure to read and understand the information provided by your pharmacy. Ask your Pharmacist if any questions. Wound Care and Hygiene: -Wash hands before touching or changing dressings -Do Not touch incision -Leave dressing till post-op day 2 and reapply dressing if wound is leaking. If wound is dry, you may leave dressing off -May shower starting post-op day 3 Call Your Doctor for: -Excessive bleeding/swelling of incision -Fever with temperature above 100 oF Anesthesia Precautions: -Do Not operate any vehicle (automobile, bicycle, motorcycle) or power tools for 24 hours -Do Not drink alcoholic beverages for 24 hours -As precaution to prevent post-operative nausea and vomiting, start your diet with liquids, then progress to light foods. If tolerated, resume normal diet. 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 Diagnosis Ileus ([facility]) Paralytic ileus Nausea and vomiting, intractability of vomiting not specified, unspecified vomiting type Generalized abdominal pain Abdominal pain, generalized Esophagitis Esophagitis, unspecified Chronic osteomyelitis (HCC) Chronic osteomyelitis, site unspecified 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 (HCC) Type 2 diabetes mellitus with hyperglycemia, with long-term current use of insulin ([facility]) Class 3 severe obesity due to excess calories with serious comorbidity and body mass index (BMI) of 50.0 to 59.9 in adult (HCC) Chronic acquired lymphedema Other lymphedema Hypertension Unspecified essential hypertension Diagnosis Hypoglycemia- Primary Hypoglycemia, unspecified Nausea Nausea alone Diabetic hyperosmolar non-ketotic state (HCC) Type II or unspecified type diabetes mellitus with hyperosmolarity, not stated as uncontrolled Hypertension Unspecified essential hypertension Chronic acquired lymphedema Other lymphedema Chronic osteomyelitis (HCC) Chronic osteomyelitis, site unspecified S/P AKA (above knee amputation) unilateral, right (HCC) 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 (HCC) Type 2 diabetes mellitus with hyperglycemia, with long-term current use of insulin (HCC) Endometrial hyperplasia Endometrial hyperplasia, unspecified Endometrial carcinoma (HCC) Malignant neoplasm of corpus uteri, except isthmus Complex endometrial hyperplasia with atypia Endometrial hyperplasia with atypia Thickened endometrium Nonspecific (abnormal) findings on radiological and other examination of genitourinary organs Diabetic gastroparesis associated with type 2 diabetes mellitus (HCC) Type II or unspecified type diabetes mellitus with neurological manifestations, not stated as uncontrolled Diagnosis Bacterial urinary infection- Primary Urinary tract infection, site not specified Non-intractable vomiting with nausea, unspecified vomiting type Abdominal pain, unspecified abdominal location Diagnosis Diabetic foot infection (HCC)- Primary Type II or unspecified type diabetes mellitus with other specified manifestations, not stated as uncontrolled Lactic acidosis Acidosis Morbid obesity (HCC) Morbid obesity S/P AKA (above knee amputation) unilateral, right ([facility]) History of Present Illness * Padma Ibarra MA - 01/02/2020 11:30 AM EST Labs obtained on 1st attempt with 22 gauge needle at [facility]. Patient tolerated well, site benign. documented in this encounter* Valeria Calzada RN - 09/30/2020 6:43 PM EST Called report to Ninfa GUILLORY at [place]. superintendent container terminal is scheduled for 7:30PM Valeria Calzada * Анна Villela MD - 09/30/2020 2:40 PM EST Department of Internal Medicine Division of Endocrinology, Diabetes, & Metabolism Endocrinology Progress Note Patient Name: Will Jacinto : 1965 AGE: 54 y.o. Room/Bed: 260/2601 Admission Date: 09/17/2020 7:46 PM Consult Date: 09/18/20 Visit Date: 09/30/2020 Reason for Endocrine Consult: DM mgmt Provider/Team Requesting Consult: Joann PCP: Jared Guzman MD Outpt District Sales Coordinator: yes, JEROME Lee/Kedar ASSESSMENT: T2DM uncontrolled with hyperglycemia Insulin resistance Morbid obesity Body mass index is 53.34 kg/m . Right AKA Ileus/gastroparesis/esophagitis Fatty liver PLAN: - pt given 75 units of U500 while NPO today for test - will increase U500 pen at 160-110-150 units TID before meals - monitor blood glucose QAC and HS - carb control diet; advance diet as tolerated - counseled patient regarding DM management - discussed insulin regimen - management of hypoglycemia per protocol - gastric emptying study test pending Inpt GMF glucose goal 150. Inpt ICU glucose goal 150-180. ANTICIPATED ENDOCRINE HOME GOING RECOMMENDATIONS: Optimized for Discharge from Endocrine standpoint: Yes Home Going Endocrine Rx Recommendations-- [id number] 160-110-150 units TID before meals Outpt Follow Up-- As scheduled with Dr. Lee SUBJECTIVE/HPI: CHIEF COMPLAINT: Abdominal Pain Pt being followed for: DM Type of DM: 2 Onset of DM: unclear Home DM Medication Regimen: U500 pen 280/280/280 DM control (last A1c/glucose data): Lab Results Component Value Date LABA1C 9.9 08/23/2020 Lab Results Component Value Date EAG 240 06/16/2019 Nausea is improved but worsened after GES today. No vomiting. Pt reports that no BM yet but passing gas. PO intake has been variable. Was NPO today for gastric emptying study. Will start back on diet and then for DC back to [facility]. Denies CP/SOB BG 257-356 today ROS negative except for those mentioned in HPI. DIET CARB CONTROL; Carb Control: 4 carb choices (60 gms)/meal; Dental Soft OBJECTIVE: Vitals: 09/30/20 0545 09/30/20 0727 09/30/20 1053 09/30/20 1421 BP: 106/71 (!) 102/53 115/61 Pulse: 101 98 107 Resp: 19 18 18 Temp: 96.8 F (36 C) 95.2 F (35.1 C) 98.7 F (37.1 C) TempSrc: Temporal Temporal Temporal SpO2: 96% 94% 97% Weight: (!) 330 lb 8 oz (149.9 kg) Height: Physical Exam Vitals signs reviewed. Constitutional: General: He is not in acute distress. Appearance: He is well-developed. He is obese. Eyes: General: No scleral icterus. Conjunctiva/sclera: Conjunctivae normal. Neck: Musculoskeletal: Neck supple. Thyroid: No thyromegaly. Cardiovascular: Rate and Rhythm: Normal rate and regular rhythm. Pulses: Normal pulses. Heart sounds: Normal heart sounds. No murmur. Pulmonary: Effort: Pulmonary effort is normal. No respiratory distress. Breath sounds: No wheezing, rhonchi or rales. Abdominal: General: There is distension. Palpations: Abdomen is soft. There is no hepatomegaly, splenomegaly or mass. Tenderness: There is no abdominal tenderness. There is no rebound. Musculoskeletal: General: Swelling and deformity present. No tenderness. Comments: R AKA Lymphadenopathy: Cervical: No cervical adenopathy. Skin: General: Skin is warm and dry. Findings: Erythema and rash present. Comments: No open skin lesions Neurological: General: No focal deficit present. Mental Status: He is alert. Motor: No tremor. Psychiatric: Mood and Affect: Mood normal. Affect is flat. Speech: Speech normal. Behavior: Behavior is slowed. Behavior is cooperative. 24 hour intake/output: No intake or output data in the 24 hours ending 09/30/20 1440 Diet: DIET CARB CONTROL; Carb Control: 4 carb choices (60 gms)/meal; Dental Soft Medications (as per EMR): HomeMeds: Prior to Admission medications Medication Sig Start Date End Date Taking? Authorizing Provider dilTIAZem (CARDIZEM CD) 180 MG extended release capsule Take 1 capsule by mouth daily 09/29/20 Yes Nabil Hill DO metoclopramide (REGLAN) 5 MG/ML injection Infuse 2 mLs intravenously every 6 hours 09/28/20 10/28/20 Yes Nabil Hill DO pantoprazole (PROTONIX) 40 MG tablet Take 1 tablet by mouth every morning (before breakfast) 09/28/20 Yes Nabil Hill, DO cyclobenzaprine (FLEXERIL) 10 MG tablet Take 10 mg by mouth 3 times daily as needed for Muscle spasms Yes Historical Provider, tiZANidine (ZANAFLEX) 4 MG tablet Take 4 mg by mouth every 8 hours as needed Yes Historical Provider, ondansetron (ZOFRAN) 4 MG tablet Take 4 mg by mouth every 8 hours as needed for Nausea or Vomiting Yes Historical Provider, insulin regular human (HUMULIN R U-500 KWIKPEN) 500 UNIT/ML SOPN concentrated injection pen 280 units TID AC meals 08/28/20 Carito Thacker, PERSONAL CARE SERVICE PROVIDER - [employer]ING [employer]ED WORKER acetaminophen (TYLENOL) 325 MG tablet Take 650 mg by mouth every 6 hours as needed for Pain Historical Provider, SALINE NASAL SPRAY NA by Nasal route as needed Historical Provider, vitamin C (ASCORBIC ACID) 500 MG tablet Take 500 mg by mouth 2 times daily Historical Provider, megestrol (MEGACE) 40 MG tablet 2 po bid Patient taking differently: Take 80 mg by mouth 2 times daily 07/26/19 Justin Walsh MD ferrous sulfate 325 (65 Fe) MG tablet Take 1 tablet by mouth daily (with breakfast) Patient taking differently: Take 325 mg by mouth 2 times daily 05/21/19 Nabil Hill DO miconazole (MICOTIN) 2 % powder Apply topically 2 times daily. 01/17/19 Dom Beltran MD mineral oil-hydrophilic petrolatum (AQUAPHOR) ointment Apply topically as needed. 01/17/19 Dom Beltran MD FLUoxetine (PROZAC) 20 MG capsule Take 40 mg by mouth daily Historical Provider, ketoconazole (NIZORAL) 2 % shampoo Apply topically daily as needed for Itching Apply topically daily as needed. Historical Provider, Multiple Vitamins-Minerals (THERAPEUTIC MULTIVITAMIN-MINERALS) tablet Take 1 tablet by mouth daily Historical Provider, Magnesium Hydroxide (MILK OF MAGNESIA CONCENTRATE PO) Take 30 mLs by mouth as needed (constipation)Historical Provider, bisacodyl (DULCOLAX) [address] 10 mg rectally daily as needed for Constipation Historical Provider, bisacodyl (DULCOLAX) 5 MG EC tablet Take 5 mg by mouth every 12 hours as needed for Constipation Historical Provider, Biotin 10 MG tablet Take 10 mg by mouth daily Historical Provider, benzonatate (TESSALON) 200 MG capsule Take 200 mg by mouth 3 times daily as needed for Cough Historical Provider, ARIPiprazole (ABILIFY) 10 MG tablet Take 10 mg by mouth daily Historical Provider, Acidophilus Lactobacillus CAPS Take 1 tablet by mouth daily Historical Provider, aspirin 81 MG tablet Take 81 mg by mouth daily Historical Provider, simvastatin (ZOCOR) 20 MG tablet Take 20 mg by mouth nightly Historical Provider, lisinopril (PRINIVIL;ZESTRIL) 40 MG tablet Take 40 mg by mouth daily Historical Provider, furosemide (LASIX) 80 MG tablet Take 80 mg by mouth daily Historical Provider, Scheduled Meds: metoclopramide 10 mg Intravenous Q6H insulin regular human 145 Units Subcutaneous QAM AC polyethylene glycol 17 g Oral BID dilTIAZem 180 mg Oral Daily insulin regular human 110 Units Subcutaneous Daily before lunch insulin regular human 135 Units Subcutaneous Dinner pantoprazole 40 mg Intravenous BID And sodium chloride (PF) 10 mL Intravenous BID lactobacillus 1 capsule Oral Daily ARIPiprazole 10 mg Oral Daily aspirin 81 mg Oral Daily ferrous sulfate 325 mg Oral BID WC FLUoxetine 40 mg Oral Daily furosemide 80 mg Oral Daily lisinopril 40 mg Oral Daily megestrol 80 mg Oral BID therapeutic multivitamin-minerals 1 tablet Oral Daily atorvastatin 20 mg Oral Daily vitamin C 500 mg Oral BID sodium chloride flush 10 mL Intravenous 2 times per day enoxaparin 40 mg Subcutaneous Daily Continuous Infusions: dextrose PRN Meds:promethazine, morphine (PF), metoprolol, benzonatate, bisacodyl, bisacodyl, cyclobenzaprine, tiZANidine, traMADol, sodium chloride flush, acetaminophen OR acetaminophen, polyethylene glycol, glucose, dextrose, glucagon (rDNA), dextrose Diagnostic Workup: I reviewed pertinent Laboratory results, Radiographic results, and Other Clinical Notes at the timeof today's encounter. BMP: No results for input(s): NA, K, CL, CO2, BUN, CREATININE, GLUCOSE in the last 72 hours. Glucose: Recent Labs 09/28/20 1747 09/28/20 1928 09/29/20 0754 09/29/20 1200 09/29/20 1616 09/29/20 1952 09/30/20 0727 09/30/20 1422 POCGLU 385* 346* 200* 301* >450* 209* 257* 356* HgbA1C: No results for input(s): LABA1C in the last 72 hours. Hepatic: No results for input(s): ALKPHOS, ALT, AST, PROT, BILITOT, BILIDIR, LABALBU in the last 72 hours. Lipids: No results for input(s): CHOL, TRIG, HDL, LDLCALC in the last 72 hours. 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) Bipolar 1 disorder (HCC) Blood circulation, collateral Cellulitis chronic L lower leg Depression Diabetes mellitus (HCC) Type II, on insulin Disease of blood and blood forming organ Endometrial hyperplasia Hx of blood clots RLE prior to amputation Hyperlipidemia Hypertension Lymphedema 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 No pertinent family history. Social History: Social History Tobacco Use Smoking status: Never Smoker Smokeless tobacco: Never Used Substance Use Topics Alcohol use: No Drug use: Never I spent 25 minutes with the pt which involved more than 51% of the time in coordination of care, medical evaluation, review of records, and/or counseling of the pt regarding his/her condition/diseasestate/prognosis on the date of this note. * Nabil Hill DO - 09/30/2020 11:43 AM EST Hospitalist Progress Note 09/30/2020 11:43 AM Subjective: Admit Date: 09/17/2020 PCP: Jared Guzman MD Interval History: pt doing ok today had gastric emptying study waiting on results Diet NPO, After Midnight No intake or output data in the 24 hours ending 09/30/20 1143 Medications: dextrose metoclopramide 10 mg Intravenous Q6H insulin regular human 145 Units Subcutaneous QAM AC polyethylene glycol 17 g Oral BID dilTIAZem 180 mg Oral Daily insulin regular human 110 Units Subcutaneous Daily before lunch insulin regular human 135 Units Subcutaneous Dinner pantoprazole 40 mg Intravenous BID And sodium chloride (PF) 10 mL Intravenous BID lactobacillus 1 capsule Oral Daily ARIPiprazole 10 mg Oral Daily aspirin 81 mg Oral Daily ferrous sulfate 325 mg Oral BID WC FLUoxetine 40 mg Oral Daily furosemide 80 mg Oral Daily lisinopril 40 mg Oral Daily megestrol 80 mg Oral BID therapeutic multivitamin-minerals 1 tablet Oral Daily atorvastatin 20 mg Oral Daily vitamin C 500 mg Oral BID sodium chloride flush 10 mL Intravenous 2 times per day enoxaparin 40 mg Subcutaneous Daily No results for input(s): WBC, HGB, PLT in the last 72 hours. No results for input(s): NA, K, CL, CO2, BUN, CREATININE, GLUCOSE in the last 72 hours. No results for input(s): AST, ALT, ALB, BILITOT, ALKPHOS in the last 72 hours. Troponin T: No results for input(s): TROPONINI in the last 72 hours. Pro-BNP: No results for input(s): BNP in the last 72 hours. INR: No results for input(s): INR in the last 72 hours. Objective: Vitals: BP (!) 102/53 Pulse 98 Temp 95.2 F (35.1 C) (Temporal) Resp 18 Ht 5' 6" (1.676 m) Wt (!) 330 lb 8 oz (149.9 kg) SpO2 94% BMI 53.34 kg/m General appearance: alert and cooperative with exam Lungs: clear to auscultation bilaterally Heart: regular rate and rhythm, S1, S2 normal, no murmur, click, rub or gallop Abdomen: soft, non-tender; bowel sounds normal; no masses, no organomegaly Extremities: extremities normal, atraumatic, no cyanosis or edema Neurologic: No obvious focal neurologic deficits. Assessment and Plan: Ileus apparently worse after initial improvement DM poorly controlled, back on U500 insulin HTN Morbid obesity Esophagitis Short run of SVT, negative troponin Plan Gastric emptying study today awaiting results Advance Directive: Full Code DVT prophylaxis with enoxaparin 40 mg sub-Q daily. Discharge planning: snf Active Problems: Hypertension Chronic osteomyelitis (HCC) Type 2 diabetes mellitus with hyperglycemia, with long-term current use of insulin (HCC) Class 3 severe obesity due to excess calories with serious comorbidity and body mass index (BMI) of50.0 to 59.9 in adult (HCC) 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 (HCC) Chronic acquired lymphedema Ileus (HCC) Nausea and vomiting Esophagitis Resolved Problems: * No resolved hospital problems. * NABIL HILL DO * Juwan Canales PTA - 09/30/2020 10:07 AM EST Physical Therapy Facility/Department: [facility] TELEMETRY Daily Treatment Note NAME: Will Jacinto : 1965 Date of Service: 09/30/2020 Chart review completed. Pt declined therapy this day. Pt stated that he wasn't felling up it and wanted to rest. This TAPROOM ATTENDANT encouraged pt to participate, pt still declined. I will re-attempt as schedule permits. Juwan Canales PTA * Valeria Calzada RN - 09/30/2020 9:39 AM EST 09/30/20 9:30 AM [phone] From: Valeria Calzada RE: WILL BARTHALEX 1965 Location: [facility] RM: [id number] is NPO for a procedure today. BS is 257, he is supposed to get 145u of the U-500. Would you likeme to still give? or hold with NPO status? Thank you Callback Required: NO CALLBACK RE 2 [facility] ROUTINE Read 9:36 AM 09/30/20 9:37 AM Can give half dose. I will order 75 units. Thanks Valeria Calzada * Jagdeep Grace MD - 09/30/2020 8:40 AM EST Progress Note Date:09/30/2020 Room:[facility] Patient Name:Will Jacinto Date of :1965 Age:54 y.o. Subjective Subjective: Symptoms: Stable. He reports shortness of breath. Diet: Adequate intake. He reports nausea and vomiting. Activity level: Impaired due to weakness. Pain: He reports no pain. Review of Systems Constitutional: Positive for activity change. HENT: Positive for congestion. Eyes: Negative. Respiratory: Positive for shortness of breath. Cardiovascular: Positive for palpitations. Gastrointestinal: Positive for nausea and vomiting. Endocrine: Negative. Genitourinary: Positive for frequency. Musculoskeletal: Positive for arthralgias. Neurological: Positive for numbness. Psychiatric/Behavioral: The patient is nervous/anxious. Objective Vitals Last 24 Hours: TEMPERATURE: Temp Av.9 F (36.1 C) Min: 96.5 F (35.8 C) Max: 97.7 F (36.5 C) RESPIRATIONS RANGE: Resp Av.6 Min: 17 Max: 20 PULSE OXIMETRY RANGE: SpO2 Av.4 % Min: 95 % Max: 100 % PULSE RANGE: Pulse Av.8 Min: 96 Max: 103 BLOOD PRESSURE RANGE: Systolic (24hrs), Av , Min:92 , Max:155 ; Diastolic (24hrs), Av, Min:54, Max:84 I/O (24Hr): No intake or output data in the 24 hours ending 09/30/20 0830 Objective: General Appearance: Comfortable and well-appearing. Vital signs: (most recent): Blood pressure 106/71, pulse 101, temperature 96.8 F (36 C), temperature source Temporal, resp. rate 19, height 5' 6" (1.676 m), weight (!) 330 lb 8 oz (149.9 kg), SpO2 96%. Vital signs are normal. Output: Producing urine. HEENT: Normal HEENT exam. Lungs: Normal effort and normal respiratory rate. There are decreased breath sounds and rhonchi. Heart: Normal rate. Regular rhythm. S1 normal and S2 normal. Positive for murmur. Abdomen: Abdomen is distended. Bowel sounds are normal. There is no abdominal tenderness. There is no mass. Extremities: Decreased range of motion. Pulses: Distal pulses are intact. Neurological: Patient is alert and oriented to person, place and time. Pupils: Pupils are equal, round, and reactive to light. Skin: Warm and dry. Labs/Imaging/Diagnostics Labs: CBC: No results for input(s): WBC, RBC, HGB, HCT, MCV, RDW, PLT in the last 72 hours. CHEMISTRIES: No results for input(s): NA, K, CL, CO2, BUN, CREATININE, GLUCOSE, PHOS, MG in the last 72 hours. Invalid input(s): CA PT/INR:No results for input(s): PROTIME, INR in the last 72 hours. APTT:No results for input(s): APTT in the last 72 hours. LIVER PROFILE: No results for input(s): AST, ALT, BILIDIR, BILITOT, ALKPHOS in the last 72 hours. Imaging Last 24 Hours: No results found. Assessment//Plan Hospital Problems Last Modified POA Hypertension 09/27/2020 Yes Chronic osteomyelitis (HCC) 09/27/2020 Yes Type 2 diabetes mellitus with hyperglycemia, with long-term current use of insulin (HCC) 09/27/2020Yes Class 3 severe obesity due to excess calories with serious comorbidity and body mass index (BMI) of50.0 to 59.9 in adult (HCC) 09/27/2020 Yes 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 (HCC) 09/27/2020 Yes Chronic acquired lymphedema 09/27/2020 Yes Ileus (HCC) 09/27/2020 Yes Nausea and vomiting 09/22/2020 Yes Esophagitis 09/22/2020 Yes Assessment: Condition: In stable condition. Improving. (Active Problems: Chronic osteomyelitis (HCC)>>>MRSA>>>Meds PSVT>>>Stable Hypertension>>Stable 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 (HCC)>>Meds Type 2 diabetes mellitus with hyperglycemia, with long-term current use of insulin (HCC)>>>Meds Chronic acquired lymphedema Esophagitis & Nausea and vomiting Class 3 severe obesity due to excess calories with serious comorbidity and body mass index (BMI) of50.0 to 59.9 in adult (HCC) Resolved Problems: Ileus (HCC)). Plan: Start/continue incentive spirometry and continue respiratory treatments. Restricted diet and advance diet as tolerated. Administer medications as ordered. (Specialty Problems Cardiology Problems PSVT>>>Stable Hypertension>>Stable 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 (HCC)>>Meds Reevaluate D/W NS). I personally obtained the bunch and critical portions of the history and physical exam. I reviewed the labs, imaging studies, and electronic medical record. I reviewed the chart documentation, and discussed the patient with treatment team members. I have edited the note to reflect my clinical findings and my assessment and plan. SIGNATURE: Jagdeep Grace MD; FACC; FHRS; FASNC; CCDS. PATIENT NAME: Will Jacinto DATE: 09/30/2020 PAGER: [phone] * Jagdeep Grace MD - 09/29/2020 1:00 PM EST Progress Note Date:09/29/2020 Room:260[facility] Patient Name:Will Jacinto Date of :1965 Age:54 y.o. Subjective Subjective: Symptoms: Stable. He reports shortness of breath. Diet: Adequate intake. He reports nausea and vomiting. Activity level: Impaired due to weakness. Pain: He reports no pain. Review of Systems Constitutional: Positive for activity change. HENT: Positive for congestion. Eyes: Negative. Respiratory: Positive for shortness of breath. Cardiovascular: Positive for palpitations. Gastrointestinal: Positive for nausea and vomiting. Endocrine: Negative. Genitourinary: Positive for frequency. Musculoskeletal: Positive for arthralgias. Neurological: Positive for numbness. Psychiatric/Behavioral: The patient is nervous/anxious. Objective Vitals Last 24 Hours: TEMPERATURE: Temp Av F (36.1 C) Min: 96.5 F (35.8 C) Max: 97.5 F (36.4 C) RESPIRATIONS RANGE: Resp Av.3 Min: 17 Max: 20 PULSE OXIMETRY RANGE: SpO2 Av.5 % Min: 94 % Max: 97 % PULSE RANGE: Pulse Av.3 Min: 82 Max: 105 BLOOD PRESSURE RANGE: Systolic (24hrs), Av , Min:92 , Max:135 ; Diastolic (24hrs), Av, Min:56, Max:74 I/O (24Hr): Intake/Output Summary (Last 24 hours) at 09/29/2020 1407 Last data filed at 09/28/2020 1540 Gross per 24 hour Intake 200 ml Output Net 200 ml Objective: General Appearance: Comfortable and well-appearing. Vital signs: (most recent): Blood pressure 92/68, pulse 96, temperature 97.1 F (36.2 C), temperature source Temporal, resp. rate 20, height 5' 6" (1.676 m), weight (!) 328 lb 8 oz (149 kg), SpO2 96 %. Vital signs are normal. Output: Producing urine. HEENT: Normal HEENT exam. Lungs: Normal effort and normal respiratory rate. There are decreased breath sounds and rhonchi. Heart: Bradycardia. Regular rhythm. S1 normal and S2 normal. Positive for murmur. Abdomen: Abdomen is distended. Bowel sounds are normal. There is no abdominal tenderness. There is no mass. Extremities: Decreased range of motion. Pulses: Distal pulses are intact. Neurological: Patient is alert and oriented to person, place and time. Pupils: Pupils are equal, round, and reactive to light. Skin: Warm and dry. Labs/Imaging/Diagnostics Labs: CBC: No results for input(s): WBC, RBC, HGB, HCT, MCV, RDW, PLT in the last 72 hours. CHEMISTRIES: No results for input(s): NA, K, CL, CO2, BUN, CREATININE, GLUCOSE, PHOS, MG in the last 72 hours. Invalid input(s): CA PT/INR:No results for input(s): PROTIME, INR in the last 72 hours. APTT:No results for input(s): APTT in the last 72 hours. LIVER PROFILE: No results for input(s): AST, ALT, BILIDIR, BILITOT, ALKPHOS in the last 72 hours. Imaging Last 24 Hours: No results found. Assessment//Plan Hospital Problems Last Modified POA Ileus (HCC) 09/27/2020 Yes Hypertension 09/27/2020 Yes Chronic osteomyelitis (HCC) 09/27/2020 Yes Type 2 diabetes mellitus with hyperglycemia, with long-term current use of insulin (HCC) 09/27/2020Yes Class 3 severe obesity due to excess calories with serious comorbidity and body mass index (BMI) of50.0 to 59.9 in adult (HCC) 09/27/2020 Yes 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 (HCC) 09/27/2020 Yes Chronic acquired lymphedema 09/27/2020 Yes Nausea and vomiting 09/22/2020 Yes Esophagitis 09/22/2020 Yes Assessment: Condition: In stable condition. Improving. (Active Problems: Chronic osteomyelitis (HCC)>>>MRSA>>>Meds PSVT>>>Stable Hypertension>>Stable 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 (HCC)>>Meds Type 2 diabetes mellitus with hyperglycemia, with long-term current use of insulin (HCC)>>>Meds Chronic acquired lymphedema Esophagitis & Nausea and vomiting Class 3 severe obesity due to excess calories with serious comorbidity and body mass index (BMI) of50.0 to 59.9 in adult (HCC) Resolved Problems: Ileus (HCC)). Plan: Start/continue incentive spirometry and continue respiratory treatments. Restricted diet and advance diet as tolerated. X-rays as ordered. Administer medications as ordered. (Specialty Problems Cardiology Problems PSVT>>>Stable Hypertension>>Stable 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 (HCC)>>Meds Reevaluate D/W NS). I personally obtained the bunch and critical portions of the history and physical exam. I reviewed the labs, imaging studies, and electronic medical record. I reviewed the chart documentation, and discussed the patient with treatment team members. I have edited the note to reflect my clinical findings and my assessment and plan. SIGNATURE: Jagdeep Grace MD; FACC; FHRS; FASNC; CCDS. PATIENT NAME: Will Jacinto DATE: 09/29/2020 PAGER: [phone] * Deborah Jha OTA - 09/29/2020 12:33 PM EST Occupational Therapy Facility/Department: [facility] TELEMETRY Daily Treatment Note NAME: Will Jacinto : 1965 Date of Service: 09/29/2020 Discharge Recommendations: ECF with OT Assessment Performance deficits / Impairments: Decreased ADL status;Decreased strength;Decreased endurance;Decreased balance;Decreased posture Assessment: Pt is progressing with his UE strengthening program with two pound free wts. Pt limitedparticipation and declined sitting EOB today because of abdominal pain and fear of increasing nausea. Visible fatigue noted in BUE with exercises. Pt is expected to benefit from continued OT to increase strength and activity tolerance for ADLs and transfers. History: Pt is 54yo male presenting with ileus. PMH listed and significant for Jamilah DA SILVA. Assistance / Modification: MOD to MAX ASSIST OT Education: Plan of Care;OT Role Patient Education: Exercise rationale and the importance of completing exercises while in bed throughout the day. REQUIRES OT FOLLOW UP: Yes Activity Tolerance Activity Tolerance: Patient limited by fatigue Activity Tolerance: visible fatigue in shoulders with BUE exercises Safety Devices Type of devices: Left in bed;Nurse notified;Call light within reach;Patient at risk for falls Patient Diagnosis(es): The primary encounter diagnosis was Ileus (HCC). Diagnoses of Nausea and vomiting, intractability of vomiting not specified, unspecified vomiting type and Generalized abdominalpain were also pertinent to this visit. has a past medical history of Abnormal uterine bleeding (AUB), Above knee amputation of right lowerextremity (HCC), Bipolar 1 disorder (HCC), Blood circulation, collateral, Cellulitis, Depression, Diabetes mellitus (HCC), Disease of blood and blood forming organ, Endometrial hyperplasia, Hx of blood clots, Hyperlipidemia, Hypertension, Lymphedema, MDRO (multiple drug resistant organisms) resistance, Morbidly obese (HCC), Osteomyelitis (HCC), Osteomyelitis (HCC), Sch[facility]ia ([facility]), Sleep apnea, and Venous insufficiency. has a past surgical history that includes Abscess Drainage (Right, 09/09/2018); [place] tooth extraction; Dilation and curettage of uterus (05/18/2019); above knee amputation (Right, 06/16/2019); and Endoscopy, colon, diagnostic (09/19/2020). Restrictions Restrictions/Precautions Restrictions/Precautions: General Precautions, Fall Risk(Jamilah DA SILVA, identifies as MALE "MARIA LUISA", tele, obese) Subjective General Chart Reviewed: Yes Patient assessed for rehabilitation services?: Yes Additional Pertinent Hx: Jamilah DA SILVA Jun 2019 Family / Caregiver Present: No Subjective Subjective: Pt awake in bed and questioning why his "carbs are limited". Nursing made aware. Pt agreeable to therapy but only UE exercise because of abd pain General Comment Comments: Nursing reports oK to treat. Pain Assessment Pain Assessment: 0-10 Pain Level: 7 Pain Type: Acute pain Pain Location: Abdomen Non-Pharmaceutical Pain Intervention(s): Emotional support;Repositioned Response to Pain Intervention: Patient Satisfied Vital Signs Patient Currently in Pain: Yes Objective Bed mobility Scooting: Moderate assistance(towards HOB while supine) Comment: Pt used bed features to assist with scooting to the HOB while supine with mod assist usingthe pad under pt. Type of ROM/Therapeutic Exercise Type of ROM/Therapeutic Exercise: Free weights Comment: Pt completed all exercises with two pound free wt while sitting upright in bed Exercises Shoulder Flexion: 2x10 reps BUE Shoulder Extension: 2x10 reps BUE Horizontal ABduction: 2x10 reps BUE Horizontal ADduction: 2x10 reps BUE Elbow Flexion: 2x15 reps BUE Elbow Extension: 2x15 reps BUE Other: Chest Press: 2x10 reps Plan Plan Times per week: 2 visits Current Treatment Recommendations: Strengthening, Balance Training, Endurance Training, Wheelchair Mobility Training, Safety Education & Training, Equipment Evaluation, Education, & procurement, Self-Care / ADL, Positioning Plan Comment: Goals and POC were established in collaboration with patient. Goals Short term goals Time Frame for Short term goals: 4 visits Short term goal 1: Pt will aaron B UE ther exe to promote strength and activity tolerance for daily routine. Progressing Short term goal 2: Pt will complete BSC transfer at F[facility] with MIN A. Not attempted today Short term goal 3: Pt will aaron >10 min of functional EOB sitting at MOD INDEP during ADL routine. Not attempted today Short term goal 4: Pt will complete toileting tasks at MOD ASSIST. Not attempted today Patient Goals Patient goals : improve activity tolerance and strength for ADL routine Therapy Time Individual Concurrent Group Co-treatment Time In 1120 Time Out 1140 Minutes 20 Timed Code Treatment Minutes: 20 Minutes(TH) FLETCHER Lamar/Elijah * Nabil Hill DO - 09/29/2020 12:23 PM EST Hospitalist Progress Note 09/29/2020 12:24 PM Subjective: Admit Date: 09/17/2020 PCP: Jared Guzman MD Interval History: pt didn't end up going yesterday as GI wants to do a gastric emptying study tomorrow Dietary Nutrition Supplements: Low Calorie High Protein Supplement Dietary Nutrition Supplements: Snack (see comment) DIET DYSPHAGIA SOFT AND BITE-SIZED; Carb Control: 4 carb choices (60 gms)/meal; Dental Soft Diet NPO, After Midnight Intake/Output Summary (Last 24 hours) at 09/29/2020 1224 Last data filed at 09/28/2020 1540 Gross per 24 hour Intake 200 ml Output Net 200 ml Medications: dextrose metoclopramide 10 mg Intravenous Q6H insulin regular human 145 Units Subcutaneous QAM AC polyethylene glycol 17 g Oral BID dilTIAZem 180 mg Oral Daily insulin regular human 110 Units Subcutaneous Daily before lunch insulin regular human 135 Units Subcutaneous Dinner pantoprazole 40 mg Intravenous BID And sodium chloride (PF) 10 mL Intravenous BID lactobacillus 1 capsule Oral Daily ARIPiprazole 10 mg Oral Daily aspirin 81 mg Oral Daily ferrous sulfate 325 mg Oral BID WC FLUoxetine 40 mg Oral Daily furosemide 80 mg Oral Daily lisinopril 40 mg Oral Daily megestrol 80 mg Oral BID therapeutic multivitamin-minerals 1 tablet Oral Daily atorvastatin 20 mg Oral Daily vitamin C 500 mg Oral BID sodium chloride flush 10 mL Intravenous 2 times per day enoxaparin 40 mg Subcutaneous Daily No results for input(s): WBC, HGB, PLT in the last 72 hours. No results for input(s): NA, K, CL, CO2, BUN, CREATININE, GLUCOSE in the last 72 hours. No results for input(s): AST, ALT, ALB, BILITOT, ALKPHOS in the last 72 hours. Troponin T: No results for input(s): TROPONINI in the last 72 hours. Pro-BNP: No results for input(s): BNP in the last 72 hours. INR: No results for input(s): INR in the last 72 hours. Objective: Vitals: BP 92/68 Pulse 96 Temp 97.1 F (36.2 C) (Temporal) Resp 20 Ht 5' 6" (1.676 m) Wt (!) 328 lb 8 oz (149 kg) SpO2 96% BMI 53.02 kg/m General appearance: alert and cooperative with exam Lungs: clear to auscultation bilaterally Heart: regular rate and rhythm, S1, S2 normal, no murmur, click, rub or gallop Abdomen: soft, non-tender; bowel sounds normal; no masses, no organomegaly Extremities: extremities normal, atraumatic, no cyanosis or edema Neurologic: No obvious focal neurologic deficits. Assessment and Plan: Ileus apparently worse after initial improvement DM poorly controlled, back on U500 insulin HTN Morbid obesity Esophagitis Short run of SVT, negative troponin Plan Gastric emptying study tomorrow then possible dc Advance Directive: Full Code DVT prophylaxis with enoxaparin 40 mg sub-Q daily. Discharge planning: snf Active Problems: Hypertension Chronic osteomyelitis (HCC) Type 2 diabetes mellitus with hyperglycemia, with long-term current use of insulin (HCC) Class 3 severe obesity due to excess calories with serious comorbidity and body mass index (BMI) of50.0 to 59.9 in adult (HCC) 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 (HCC) Chronic acquired lymphedema Ileus (HCC) Nausea and vomiting Esophagitis Resolved Problems: * No resolved hospital problems. * NABIL HILL DO * Chris Muniz MD - 09/29/2020 9:33 AM EST GASTROENTEROLOGY PROGRESS NOTE Patient: Will Jacinto :1965 Primary Care Physician: Jared Guzman MD History: The patient is a 54 y.o. adult with hx of ileus, nausea, chornic., tolerated part of soft diet lastnight Some nausea today but will try breakfast Some abdominal pain, but only ileus on recent CT Current Medications: Current Facility-Administered Medications Medication Dose Route Frequency Provider Last Rate Last Dose metoclopramide (REGLAN) injection 10 mg 10 mg Intravenous Q6H Chris Muniz MD 10 mg at 09/29/20 0924 insulin regular human (humuLIN R U-500 KWIKPEN) 500 UNIT/ML concentrated injection pen 145 Units 145 Units Subcutaneous QAM AC Asuncion Garibay DO 145 Units at 09/29/20 0924 polyethylene glycol (GLYCOLAX) packet 17 g 17 g Oral BID Chris Muniz MD 17 g at 09/29/20 0926 dilTIAZem (CARDIZEM CD) extended release capsule 180 mg 180 mg Oral Daily Priyank Rios MD 180 mg at 09/29/20 0925 insulin regular human (humuLIN R U-500 KWIKPEN) 500 UNIT/ML concentrated injection pen 110 Units 110 Units Subcutaneous Daily before lunch Asuncion Garibay, DO 110 Units at 09/27/20 1128 insulin regular human (humuLIN R U-500 KWIKPEN) 500 UNIT/ML concentrated injection pen 135 Units 135 Units Subcutaneous Dinner Asuncion Garibay, DO 135 Units at 09/28/20 1829 promethazine (PHENERGAN) injection 25 mg 25 mg Intramuscular Q6H PRN Art Stapleton MD 25 mg at 09/29/20 0333 morphine (PF) injection 4 mg 4 mg Intravenous Q6H PRN Kylah David MD 4 mg at 09/29/20 033 metoprolol (LOPRESSOR) injection 5 mg 5 mg Intravenous Q6H PRN Priyank Rios MD 5 mg at 09/21/20 182 pantoprazole (PROTONIX) injection 40 mg 40 mg Intravenous BID Sergio Sibley DO 40 mg at 09/29/20 0924 And sodium chloride (PF) 0.9 % injection 10 mL 10 mL Intravenous BID Sergio Sibley DO 10 mL at 09/28/202136 lactobacillus (CULTURELLE) capsule 1 capsule 1 capsule Oral Daily Nabil M Esterle, DO 1 capsule at 09/28/20 0957 ARIPiprazole (ABILIFY) tablet 10 mg 10 mg Oral Daily Nabil M Esterle, DO 10 mg at 09/29/20924 aspirin chewable tablet 81 mg 81 mg Oral Daily Nabil M Esterle, DO 81 mg at 09/29/20924 benzonatate (TESSALON) capsule 200 mg 200 mg Oral TID PRN Nabil M Esterle, DO bisacodyl (DULCOLAX) suppository 10 mg 10 mg Rectal Daily PRN Nabil M Esterle, DO bisacodyl (DULCOLAX) EC tablet 5 mg 5 mg Oral Q12H PRN Nabil M Esterle, DO 5 mg at 09/27/202002 cyclobenzaprine (FLEXERIL) tablet 10 mg 10 mg Oral TID PRN Nabil M Esterle, DO 10 mg at 09/28/202131 ferrous sulfate (IRON 325) tablet 325 mg 325 mg Oral BID WC Nabil M Esterle, DO 325 mg at 09/29/20924 FLUoxetine (PROZAC) capsule 40 mg 40 mg Oral Daily Nabil M Esterle, DO 40 mg at 09/29/20924 furosemide (LASIX) tablet 80 mg 80 mg Oral Daily Nabil M Esterle, DO 80 mg at 09/29/20924 lisinopril (PRINIVIL;ZESTRIL) tablet 40 mg 40 mg Oral Daily Nabil M Esterle, DO 40 mg at 09/29/20924 megestrol (MEGACE) tablet 80 mg 80 mg Oral BID Nabil M Esterle, DO 80 mg at 09/29/20924 therapeutic multivitamin-minerals 1 tablet 1 tablet Oral Daily Nabil M Esterle, DO 1 tablet at 09/29/20924 atorvastatin (LIPITOR) tablet 20 mg 20 mg Oral Daily Nabil M Esterle, DO 20 mg at 09/29/20924 tiZANidine (ZANAFLEX) tablet 4 mg 4 mg Oral Q8H PRN Nabil M Esterle, DO 4 mg at 09/28/202133 traMADol (ULTRAM) tablet 50 mg 50 mg Oral Q12H PRN Nabil M Esterle, DO 50 mg at 09/28/202131 vitamin C (ASCORBIC ACID) tablet 500 mg 500 mg Oral BID Nabil M Esterle, DO 500 mg at 09/29/20925 sodium chloride flush 0.9 % injection 10 mL 10 mL Intravenous 2 times per day Nabil M Esterle, DO 10mL at 09/28/202133 sodium chloride flush 0.9 % injection 10 mL 10 mL Intravenous PRN Nabil M Esterle, DO acetaminophen (TYLENOL) tablet 650 mg 650 mg Oral Q6H PRN Nabil M Esterle, DO 650 mg at 09/21/20 0908 Or acetaminophen (TYLENOL) suppository 650 mg 650 mg Rectal Q6H PRN Nabil M Esterle, DO polyethylene glycol (GLYCOLAX) packet 17 g 17 g Oral Daily PRN Nabil M Esterle, DO 17 g at 09/24/20 1245 enoxaparin (LOVENOX) injection 40 mg 40 mg Subcutaneous Daily Nabil M Esterle, DO 40 mg at 09/29/2026 glucose (GLUTOSE) 40 % oral gel 15 g 15 g Oral PRN Nabil M Esterle, DO dextrose 50 % IV solution 12.5 g Intravenous PRN Nabil M Esterle, DO glucagon (rDNA) injection 1 mg 1 mg Intramuscular PRN Nabil M Esterle, DO dextrose 5 % solution 100 mL/hr Intravenous PRN Nbail M Esterle, DO Intake andOutput: I/O last 3 completed shifts: In: 200 [P.O.:200] Out: - No intake/output data recorded. PhysicalExam: BP (!) 99/56 Pulse 82 Temp 96.5 F (35.8 C) (Temporal) Resp 20 Ht 5' 6" (1.676 m) Wt (!) 328 lb 8 oz (149 kg) SpO2 94% BMI 53.02 kg/m Physical Exam Not i distress' Abdomen, obese soft and nontender CBC: No results for input(s): WBC, HGB, HCT, PLT in the last 72 hours. CMP: No results for input(s): NA, K, CL, CO2, BUN, CREATININE, GLUCOSE, CALCIUM in the last 72 hours. HEPATIC: No results for input(s): AST, ALT, ALB, BILITOT, ALKPHOS in the last 72 hours. INR: No results for input(s): INR in the last 72 hours. ASSESSMENT: 1. Nausea, very slow improvement,. On reglan., likely functional, gastroparesis PLAN: 1. Continue reglan and soft diet 2. * Asuncion Garibay DO - 09/29/2020 9:00 AM EST Department of Internal Medicine Division of Endocrinology, Diabetes, & Metabolism Endocrinology Progress Note Patient Name: Will Jacinto : 1965 AGE: 54 y.o. Room/Bed: 260/2601 Admission Date: 09/17/2020 7:46 PM Consult Date: 09/18/20 Visit Date: 09/29/2020 Reason for Endocrine Consult: DM mgmt Provider/Team Requesting Consult: Joann PCP: Jared Guzman MD Outpt District Sales Coordinator: yes, JEROME Lee/Kedar ASSESSMENT: T2DM uncontrolled with hyperglycemia Insulin resistance Body mass index is 53.02 kg/m . Morbid obesity Right AKA PLAN: The inpt antihyperglycemic regimen will be as follows: No changes. If pt is eating any amt of his meal he should receive the full dose of U500. Inpt GMF glucose goal 150. Inpt ICU glucose goal 150-180. Outpt goal A1C = 7%. Insulin is necessary for ongoing mgmt. FSBS to occur qAC/HS/PRN for s/s of hyper-/hypoglycemia. FSBS data will be used to determine the next steps in antihyperglycemic medication titration duringhospital stay. If hypoglycemia were to occur it should be treated per hospital protocol. Diet recommendation: carb controlled 60 gram limit no juice w/ trays District Sales Coordinator On-Call: AGAPITO Preferred Method of Communication/Reaching: [employer]ario. The above physician should be paged w/ questions/concerns about items being managed by Endocrinology Team. If there are any questions or concerns related to the info in this progress note please page the oncall consultant rn directly. On-Call information can be found in the [employer] Directory. We can also be reached by [employer] communication system. We appreciate the opportunity to participate in this pt's ongoing medical care. ANTICIPATED ENDOCRINE HOME GOING RECOMMENDATIONS: Optimized for Discharge from Endocrine standpoint: Yes Home Going Endocrine Rx Recommendations-- Current hosp L870dic insulin doses. Outpt Follow Up-- As scheduled. Appointment request sent to Endo office Staff: No SUBJECTIVE/HPI: CHIEF COMPLAINT: Abdominal Pain Type of DM: 2 Onset of DM: unclear Home DM Medication Regimen: U500 pen 280/280/280 DM control (last A1c/glucose data): Lab Results Component Value Date LABA1C 9.9 08/23/2020 Lab Results Component Value Date EAG 240 06/16/2019 Yesterday our team was informed that pt wasn't eating lunch. Appears he consumed 51% of his meal. Pt feels ok today. He has no questions at this time. Review of Systems All other systems reviewed and are negative. Inpt ROS: [] MALCOLM [] diaphoresis [] tremor [] CP [] chest pressure [] palpitation [] SOB [] Abd pain [] Nausea [] Emesis [] Other: (Legend: [x] if present; [] if not present) OBJECTIVE: Vitals: 09/28/20 2346 09/29/20 0324 09/29/20 0554 09/29/20 0756 BP: 122/69 (!) 115/58 (!) 99/56 Pulse: 102 86 82 Resp: Temp: 97 F (36.1 C) 96.8 F (36 C) 96.5 F (35.8 C) TempSrc: Temporal Temporal Temporal SpO2: 94% 96% 94% Weight: (!) 328 lb 8 oz (149 kg) Height: Physical Exam Vitals signs reviewed. Constitutional: General: He is not in acute distress. Appearance: He is well-developed. He is obese. He is not ill-appearing, toxic- appearing or diaphoretic. Comments: . HENT: Head: Normocephalic and atraumatic. Right Ear: External ear normal. Left Ear: External ear normal. Nose: Nose normal. Eyes: General: No scleral icterus. Right eye: No discharge. Left eye: No discharge. Conjunctiva/sclera: Conjunctivae normal. Pulmonary: Effort: Pulmonary effort is normal. No respiratory distress. Neurological: Mental Status: He is alert and oriented to person, place, and time. 24 hour intake/output: Intake/Output Summary (Last 24 hours) at 09/29/2020 0901 Last data filed at 09/28/2020 1540 Gross per 24 hour Intake 200 ml Output Net 200 ml Diet: Dietary Nutrition Supplements: Low Calorie High Protein Supplement Dietary Nutrition Supplements: Snack (see comment) DIET DYSPHAGIA SOFT AND BITE-SIZED; Carb Control: 4 carb choices (60 gms)/meal; Dental Soft Diet NPO, After Midnight Medications (as per EMR): HomeMeds: Prior to Admission medications Medication Sig Start Date End Date Taking? Authorizing Provider dilTIAZem (CARDIZEM CD) 180 MG extended release capsule Take 1 capsule by mouth daily 09/29/20 Yes Nabil Hill DO metoclopramide (REGLAN) 5 MG/ML injection Infuse 2 mLs intravenously every 6 hours 09/28/20 10/28/20 Yes Nabil Hill DO pantoprazole (PROTONIX) 40 MG tablet Take 1 tablet by mouth every morning (before breakfast) 09/28/20 Yes Nabil Hill DO cyclobenzaprine (FLEXERIL) 10 MG tablet Take 10 mg by mouth 3 times daily as needed for Muscle spasms Yes Historical Provider, tiZANidine (ZANAFLEX) 4 MG tablet Take 4 mg by mouth every 8 hours as needed Yes Historical Provider, ondansetron (ZOFRAN) 4 MG tablet Take 4 mg by mouth every 8 hours as needed for Nausea or Vomiting Yes Historical Provider, insulin regular human (HUMULIN R U-500 KWIKPEN) 500 UNIT/ML SOPN concentrated injection pen 280 units TID AC meals 08/28/20 Carito Thacker, PERSONAL CARE SERVICE PROVIDER - [employer] acetaminophen (TYLENOL) 325 MG tablet Take 650 mg by mouth every 6 hours as needed for Pain Historical Provider, SALINE NASAL SPRAY NA by Nasal route as needed Historical Provider, vitamin C (ASCORBIC ACID) 500 MG tablet Take 500 mg by mouth 2 times daily Historical Provider, megestrol (MEGACE) 40 MG tablet 2 po bid Patient taking differently: Take 80 mg by mouth 2 times daily 07/26/19 Justin Walsh MD ferrous sulfate 325 (65 Fe) MG tablet Take 1 tablet by mouth daily (with breakfast) Patient taking differently: Take 325 mg by mouth 2 times daily 05/21/19 Nabil Hill DO miconazole (MICOTIN) 2 % powder Apply topically 2 times daily. 01/17/19 Dom Beltran MD mineral oil-hydrophilic petrolatum (AQUAPHOR) ointment Apply topically as needed. 01/17/19 Dom Beltran MD FLUoxetine (PROZAC) 20 MG capsule Take 40 mg by mouth daily Historical Provider, ketoconazole (NIZORAL) 2 % shampoo Apply topically daily as needed for Itching Apply topically daily as needed. Historical Provider, Multiple Vitamins-Minerals (THERAPEUTIC MULTIVITAMIN-MINERALS) tablet Take 1 tablet by mouth daily Historical Provider, Magnesium Hydroxide (MILK OF MAGNESIA CONCENTRATE PO) Take 30 mLs by mouth as needed (constipation)Historical Provider, bisacodyl (DULCOLAX) [address] 10 mg rectally daily as needed for Constipation Historical Provider, bisacodyl (DULCOLAX) 5 MG EC tablet Take 5 mg by mouth every 12 hours as needed for Constipation Historical Provider, Biotin 10 MG tablet Take 10 mg by mouth daily Historical Provider, benzonatate (TESSALON) 200 MG capsule Take 200 mg by mouth 3 times daily as needed for Cough Historical Provider, ARIPiprazole (ABILIFY) 10 MG tablet Take 10 mg by mouth daily Historical Provider, Acidophilus Lactobacillus CAPS Take 1 tablet by mouth daily Historical Provider, aspirin 81 MG tablet Take 81 mg by mouth daily Historical Provider, simvastatin (ZOCOR) 20 MG tablet Take 20 mg by mouth nightly Historical Provider, lisinopril (PRINIVIL;ZESTRIL) 40 MG tablet Take 40 mg by mouth daily Historical Provider, furosemide (LASIX) 80 MG tablet Take 80 mg by mouth daily Historical Provider, Scheduled Meds: metoclopramide 10 mg Intravenous Q6H insulin regular human 145 Units Subcutaneous QAM AC polyethylene glycol 17 g Oral BID dilTIAZem 180 mg Oral Daily insulin regular human 110 Units Subcutaneous Daily before lunch insulin regular human 135 Units Subcutaneous Dinner pantoprazole 40 mg Intravenous BID And sodium chloride (PF) 10 mL Intravenous BID lactobacillus 1 capsule Oral Daily ARIPiprazole 10 mg Oral Daily aspirin 81 mg Oral Daily ferrous sulfate 325 mg Oral BID WC FLUoxetine 40 mg Oral Daily furosemide 80 mg Oral Daily lisinopril 40 mg Oral Daily megestrol 80 mg Oral BID therapeutic multivitamin-minerals 1 tablet Oral Daily atorvastatin 20 mg Oral Daily vitamin C 500 mg Oral BID sodium chloride flush 10 mL Intravenous 2 times per day enoxaparin 40 mg Subcutaneous Daily Continuous Infusions: dextrose PRN Meds:promethazine, morphine (PF), metoprolol, benzonatate, bisacodyl, bisacodyl, cyclobenzaprine, tiZANidine, traMADol, sodium chloride flush, acetaminophen OR acetaminophen, polyethylene glycol, glucose, dextrose, glucagon (rDNA), dextrose Diagnostic Workup: I reviewed pertinent Laboratory results, Radiographic results, and Other Clinical Notes at the timeof today's encounter. BMP: No results for input(s): NA, K, CL, CO2, BUN, CREATININE, GLUCOSE in the last 72 hours. Glucose: Recent Labs 09/28/20 0803 09/28/20 0937 09/28/20 1155 09/28/20 1409 09/28/20 1557 09/28/20 1747 09/28/20 1928 09/29/20 0754 POCGLU 233* 230* 325* 322* 393* 385* 346* 200* HgbA1C: No results for input(s): LABA1C in the last 72 hours. Hepatic: No results for input(s): ALKPHOS, ALT, AST, PROT, BILITOT, BILIDIR, LABALBU in the last 72 hours. Lipids: No results for input(s): CHOL, TRIG, HDL, LDLCALC in the last 72 hours. Invalid input(s): LDL TSH: Lab Results Component Value Date TSH 1.112 05/09/2019 T4FREE 1.15 05/09/2019 Radiology reportsas per the Radiologist Radiology: Xr Abdomen (kub) (single Ap View) Result Date: 09/18/2020 Patient Name: WILL JACINTO ---Diagnostic Radiology--- Exam Date/Time 09/18/2020 09:25:00 EST Exam CR Abdomen AP Ordering Physician DO HILL LISA Accession Number [id number] CPT4 Codes 68179 () Reason For Exam ileus Report Clinical Information: Abdominal pain and nausea. Ileus. Abdomen, KUB: A multiple AP supine radiographs of the abdomen demonstrate a distended gas filled stomach. There is a nonspecific bowel gas pattern. Gas is seen within multiple nondilated and mildly dilated loops small bowel. Gas and fecal residue are seen in normal caliber large bowel. There is no obvious free intraperitoneal gas on limited evaluation. No suspect calcification, organomegaly or soft tissue mass is seen. There is excreted urinary contrast within the urinarybladder. Impression: 1. Gaseous distention of the stomach which is nonspecific and could be relatedto gastroparesis, now with obstruction, aerophagia. 2. Nonspecific bowel gas pattern without evidence of obstruction 3. No other significant radiographic abnormality. Report Dictated on --- Final --- Dictating Physician: MD BARRAGAN HARLAN Signed Date and Time: 09/18/20209:48 am Signed by: MD BARRAGAN HARLAN Transcribed Date and Time: 09/18/2020 10:25 Ct Abdomen Pelvis W Contrast Result Date: 09/17/2020 Patient Name: WILL JACINTO ---CT--- Exam Date/Time 09/17/202022:15:[address] Abdomen/Pelvis w/ IV Contrast (IV Onl Ordering Physician [id number] DURHAM Accession Number [id number] CPT4 Codes 64413 (CT Abdomen/Pelvis w/ IV Contrast (IV Onl), Q9967 (CT ISOVUE 370MG/ML&[id number]&ML&1) Reason For Exam abd pain/tenderness Report CT ABDOMEN AND PELVIS CLINICAL INDICATION: abd pain/tenderness TECHNIQUE: CT scan of the abdomen and pelvis with IV contrast. Multiplanar reformations. COMPARISON: 06/25/2018 FINDINGS: Right middle lobe lung nodule measures 3.2 mm. This area was not included on the prior scan. Lung bases otherwise clear. No free air seen. Diffuse hepatic steatosis. Normal gallbladder and biliary tree. Spleen shows no significant abnormality. Adrenal glands show no significant abnormality. Kidneys show no significant abnormality. Pancreas shows no significant abnormality. Abdominal aorta is nonaneurysmal. No bowel obstruction. Appendix is not seen. Uterus is enlarged, likely related to fibroids, but new since the previous study. No ureteral calculus seen on either side. Moderate distention of the stomach with fluid and gas. Mildly prominent small bowel loops also filled with gas, potentially an ileus. IMPRESSION: 1. Enlarged uterus likely relates to fibroids, new since the previous study. 2. Diffuse hepatic steatosis. 3. Right middle lobe nodule. No suspicious morphology. Fleischner Society guidelines indicate that for solitary or multiple nodules less than 6 mm in average cross- sectional size in a low risk patient need no specific follow-up. However, a 12 month follow-up can be considered if nodule morphology is suspicious or nodule is in an upper lobe. In a high risk patient with solitary or multiple nodules less than 6 mm in average cross-sectional size, recommendation is for optional CT follow-up in 12 months. 4. Moderate distention of the stomach with fluid and gas with gas present throughoutnumerous mildly prominent small bowel loops, consider possible ileus. 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) Bipolar 1 disorder (HCC) Blood circulation, collateral Cellulitis chronic L lower leg Depression Diabetes mellitus (HCC) Type II, on insulin Disease of blood and blood forming organ Endometrial hyperplasia Hx of blood clots RLE prior to amputation Hyperlipidemia Hypertension Lymphedema 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 No pertinent family history. Social History: Social History Tobacco Use Smoking status: Never Smoker Smokeless tobacco: Never Used Substance Use Topics Alcohol use: No Drug use: Never Portions of the information within this encounter were entered using an electronic dictation system. Best attempts were made to edit/proofread the information prior to note completion. Despite the review of information, some errors may remain. If there are questions related to the information contained within the note please contact the signing physician directly. I spent 25 minutes with the pt which involved more than 51% of the time in coordination of care, medical evaluation, review of records, and/or counseling of the pt regarding his/her condition/diseasestate/prognosis on the date of this note. * Jagdeep Grace MD - 09/28/2020 1:09 PM EST Progress Note Date:09/28/2020 Room:[address] [place] [address] Patient Name:Will Jacinto Date of :1965 Age:54 y.o. Subjective Subjective: Symptoms: Stable. He reports shortness of breath. Diet: Adequate intake. He reports nausea and vomiting. Activity level: Impaired due to weakness. Pain: He reports no pain. Review of Systems Constitutional: Positive for activity change. HENT: Positive for congestion. Eyes: Negative. Respiratory: Positive for shortness of breath. Cardiovascular: Positive for palpitations. Gastrointestinal: Positive for nausea and vomiting. Endocrine: Negative. Genitourinary: Positive for frequency. Musculoskeletal: Positive for arthralgias. Neurological: Positive for numbness. Psychiatric/Behavioral: The patient is nervous/anxious. Objective Vitals Last 24 Hours: TEMPERATURE: Temp Av F (36.1 C) Min: 96.4 F (35.8 C) Max: 98.1 F (36.7 C) RESPIRATIONS RANGE: Resp Av.7 Min: 19 Max: 20 PULSE OXIMETRY RANGE: SpO2 Av.8 % Min: 94 % Max: 98 % PULSE RANGE: Pulse Av.4 Min: 88 Max: 100 BLOOD PRESSURE RANGE: Systolic (24hrs), Av , Min:102 , Max:152 ; Diastolic (24hrs), Av, Min:60, Max:87 I/O (24Hr): No intake or output data in the 24 hours ending 09/28/20 1401 Objective: General Appearance: Comfortable and well-appearing. Vital signs: (most recent): Blood pressure (!) 152/63, pulse 100, temperature 96.7 F (35.9 C), temperature source Temporal, resp. rate 20, height 5' 6" (1.676 m), weight (!) 343 lb 1.6 oz (155.6 kg),SpO2 98 %. Vital signs are normal. Output: Producing urine. HEENT: Normal HEENT exam. Lungs: Normal effort and normal respiratory rate. There are decreased breath sounds and rhonchi. Heart: Normal rate. Regular rhythm. S1 normal and S2 normal. Positive for murmur. Abdomen: Abdomen is distended. Bowel sounds are normal. There is no abdominal tenderness. There is no mass. Extremities: Decreased range of motion. Pulses: Distal pulses are intact. Neurological: Patient is alert and oriented to person, place and time. Pupils: Pupils are equal, round, and reactive to light. Skin: Warm and dry. Labs/Imaging/Diagnostics Labs: CBC: Recent Labs 09/26/20 0455 WBC 9.8 RBC 4.41 HGB 12.6 HCT 38.5 MCV 87.2 RDW 15.5* PLT 508* CHEMISTRIES: Recent Labs 09/26/20 0613 NA 133* K 4.8 CL 97* CO2 24 BUN 32* CREATININE 1.13 GLUCOSE 207* PT/INR:No results for input(s): PROTIME, INR in the last 72 hours. APTT:No results for input(s): APTT in the last 72 hours. LIVER PROFILE: Recent Labs 09/26/20 0613 AST 64* ALT 127* BILITOT 1.4* ALKPHOS 120 Imaging Last 24 Hours: No results found. Assessment//Plan Hospital Problems Last Modified POA Ileus (HCC) 09/27/2020 Yes Hypertension 09/27/2020 Yes Chronic osteomyelitis (HCC) 09/27/2020 Yes Type 2 diabetes mellitus with hyperglycemia, with long-term current use of insulin (HCC) 09/27/2020Yes Class 3 severe obesity due to excess calories with serious comorbidity and body mass index (BMI) of50.0 to 59.9 in adult (HCC) 09/27/2020 Yes 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 (HCC) 09/27/2020 Yes Chronic acquired lymphedema 09/27/2020 Yes Nausea and vomiting 09/22/2020 Yes Esophagitis 09/22/2020 Yes Assessment: Condition: In stable condition. Improving. (Active Problems: Chronic osteomyelitis (HCC)>>>MRSA>>>Meds PSVT>>>Stable Hypertension>>Stable 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 (HCC)>>Meds Type 2 diabetes mellitus with hyperglycemia, with long-term current use of insulin (HCC)>>>Meds Chronic acquired lymphedema Esophagitis & Nausea and vomiting Class 3 severe obesity due to excess calories with serious comorbidity and body mass index (BMI) of50.0 to 59.9 in adult (HCC) Resolved Problem: Ileus (HCC)). Plan: Start/continue incentive spirometry and continue respiratory treatments. Restricted diet and advance diet as tolerated. X-rays as ordered. Administer medications as ordered. (Specialty Problems Cardiology Problems PSVT>>>Stable Hypertension>>Stable 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 (HCC)>>Meds Reevaluate D/W NS). I personally obtained the bunch and critical portions of the history and physical exam. I reviewed the labs, imaging studies, and electronic medical record. I reviewed the chart documentation, and discussed the patient with treatment team members. I have edited the note to reflect my clinical findings and my assessment and plan. SIGNATURE: Jagdeep Grace MD; FACC; FHRS; FASNC; CCDS. PATIENT NAME: Will Jacinto DATE: 09/28/2020 PAGER: [phone] * Chris Muniz MD - 09/28/2020 9:18 AM EST GASTROENTEROLOGY PROGRESS NOTE Patient: Will Jacinto :1965 Primary Care Physician: Jared Guzman MD History: The patient is a 54 y.o. adult with persistent nausea, no bm per pt x 3 days.on Morphine for pain. And reglan for prob gastroparesis. Current Medications: Current Facility-Administered Medications Medication Dose Route Frequency Provider Last Rate Last Dose metoclopramide (REGLAN) injection 10 mg 10 mg Intravenous Q6H Chris Muniz MD insulin regular human (humuLIN R U-500 KWIKPEN) 500 UNIT/ML concentrated injection pen 145 Units 145 Units Subcutaneous QAM AC Asuncion Garibay DO dilTIAZem (CARDIZEM CD) extended release capsule 180 mg 180 mg Oral Daily Priyank Rios MD 180 mg at 09/27/20 0757 insulin regular human (humuLIN R U-500 KWIKPEN) 500 UNIT/ML concentrated injection pen 110 Units 110 Units Subcutaneous Daily before lunch Asuncion Garibay DO 110 Units at 09/27/20 1128 insulin regular human (humuLIN R U-500 KWIKPEN) 500 UNIT/ML concentrated injection pen 135 Units 135 Units Subcutaneous Dinner Asuncion Garibay DO 135 Units at 09/27/20 1722 promethazine (PHENERGAN) injection 25 mg 25 mg Intramuscular Q6H PRN Art Stapleton MD 25 mg at 09/27/202000 morphine (PF) injection 4 mg 4 mg Intravenous Q6H PRN Kylah David MD 4 mg at 09/27/202002 metoprolol (LOPRESSOR) injection 5 mg 5 mg Intravenous Q6H PRN Priyank Rios MD 5 mg at 09/21/20 1820 pantoprazole (PROTONIX) injection 40 mg 40 mg Intravenous BID Sergio Sibley, DO 40 mg at 09/27/202002 And sodium chloride (PF) 0.9 % injection 10 mL 10 mL Intravenous BID Sergio Sibley, DO 10 mL at 09/27/202003 lactobacillus (CULTURELLE) capsule 1 capsule 1 capsule Oral Daily Nabil M Esterle, DO 1 capsule at 09/27/20 0758 ARIPiprazole (ABILIFY) tablet 10 mg 10 mg Oral Daily Nabil M Esterle, DO 10 mg at 09/27/20 0757 aspirin chewable tablet 81 mg 81 mg Oral Daily Nabil M Esterle, DO 81 mg at 09/27/20 0757 benzonatate (TESSALON) capsule 200 mg 200 mg Oral TID PRN Nabil M Esterle, DO bisacodyl (DULCOLAX) suppository 10 mg 10 mg Rectal Daily PRN Nabil M Esterle, DO bisacodyl (DULCOLAX) EC tablet 5 mg 5 mg Oral Q12H PRN Nabil M Esterle, DO 5 mg at 09/27/202002 cyclobenzaprine (FLEXERIL) tablet 10 mg 10 mg Oral TID PRN Nabil M Esterle, DO 10 mg at 09/27/202002 ferrous sulfate (IRON 325) tablet 325 mg 325 mg Oral BID WC Nabil M Esterle, DO 325 mg at 09/27/20 1720 FLUoxetine (PROZAC) capsule 40 mg 40 mg Oral Daily Nabil M Esterle, DO 40 mg at 09/27/20 0756 furosemide (LASIX) tablet 80 mg 80 mg Oral Daily Nabil M Esterle, DO 80 mg at 09/27/20 0757 lisinopril (PRINIVIL;ZESTRIL) tablet 40 mg 40 mg Oral Daily Nabil M Esterle, DO 40 mg at 09/27/20 0757 megestrol (MEGACE) tablet 80 mg 80 mg Oral BID Nabil M Esterle, DO 80 mg at 09/27/202003 therapeutic multivitamin-minerals 1 tablet 1 tablet Oral Daily Nabil M Esterle, DO 1 tablet at 09/27/20 0757 atorvastatin (LIPITOR) tablet 20 mg 20 mg Oral Daily Nabil M Esterle, DO 20 mg at 09/27/20 0756 tiZANidine (ZANAFLEX) tablet 4 mg 4 mg Oral Q8H PRN Nabil M Esterle, DO 4 mg at 09/27/20 0756 traMADol (ULTRAM) tablet 50 mg 50 mg Oral Q12H PRN Nabil M Esterle, DO 50 mg at 09/28/20 0032 vitamin C (ASCORBIC ACID) tablet 500 mg 500 mg Oral BID Nabil M Esterle, DO 500 mg at 09/27/202002 sodium chloride flush 0.9 % injection 10 mL 10 mL Intravenous 2 times per day Nabil M Esterle, DO 10mL at 09/27/202002 sodium chloride flush 0.9 % injection 10 mL 10 mL Intravenous PRN Nabil M Esterle, DO acetaminophen (TYLENOL) tablet 650 mg 650 mg Oral Q6H PRN Nabil M Esterle, DO 650 mg at 09/21/20 0908 Or acetaminophen (TYLENOL) suppository 650 mg 650 mg Rectal Q6H PRN Nabil M Esterle, DO polyethylene glycol (GLYCOLAX) packet 17 g 17 g Oral Daily PRN Nabil M Esterle, DO 17 g at 09/24/20 1245 enoxaparin (LOVENOX) injection 40 mg 40 mg Subcutaneous Daily Nabil M Esterle, DO 40 mg at 09/27/20 0757 glucose (GLUTOSE) 40 % oral gel 15 g 15 g Oral PRN Nabli M Esterle, DO dextrose 50 % IV solution 12.5 g Intravenous PRN Nabil M Esterle, DO glucagon (rDNA) injection 1 mg 1 mg Intramuscular PRN Nabil M Esterle, DO dextrose 5 % solution 100 mL/hr Intravenous PRN Nabil M Esterle, DO Intake andOutput: No intake/output data recorded. No intake/output data recorded. PhysicalExam: BP (!) 151/87 Pulse 88 Temp 96.6 F (35.9 C) (Temporal) Resp 20 Ht 5' 6" (1.676 m) Wt (!) 343 lb 1.6 oz (155.6 kg) SpO2 96% BMI 55.38 kg/m Physical Exam Not indistress Lungs clear [id number] abodmen obese non tender CBC: Recent Labs 09/26/20 0455 WBC 9.8 HGB 12.6 HCT 38.5 PLT 508* CMP: Recent Labs 09/26/20 0613 NA 133* K 4.8 CL 97* CO2 24 BUN 32* CREATININE 1.13 GLUCOSE 207* CALCIUM 8.9 HEPATIC: Recent Labs 09/26/20 0613 AST 64* ALT 127* BILITOT 1.4* ALKPHOS 120 INR: No results for input(s): INR in the last 72 hours. ASSESSMENT: 1. Nausea.,likely gastroparesis ,functional.may be aggravated by narcotic 2. constipation PLAN: 1. Gastric emptying 2. continue reglan 3. minmize or Dc morphine 4. miralax 17 mg po BID * Asuncion Garibay, DO - 09/28/2020 9:05 AM EST Department of Internal Medicine Division of Endocrinology, Diabetes, & Metabolism Endocrinology Progress Note Patient Name: Will Jacinto : 1965 AGE: 54 y.o. Room/Bed: 260/260 Admission Date: 09/17/2020 7:46 PM Consult Date: 09/18/20 Visit Date: 09/28/2020 Reason for Endocrine Consult: DM mgmt Provider/Team Requesting Consult: Joann PCP: Jared Guzman MD Outpt District Sales Coordinator: yes, JEROME Lee/Kedar ASSESSMENT: T2DM uncontrolled with hyperglycemia Insulin resistance Body mass index is 55.38 kg/m . Morbid obesity Right AKA PLAN: The inpt antihyperglycemic regimen will be as follows: Increased breakfast dose of U 500 insulin to 145 units. Lunch and dinner doses remain the same. Inpt GMF glucose goal 150. Inpt ICU glucose goal 150-180. Outpt goal A1C = 7%. Insulin is necessary for ongoing mgmt. FSBS to occur qAC/HS/PRN for s/s of hyper-/hypoglycemia. FSBS data will be used to determine the next steps in antihyperglycemic medication titration duringhospital stay. If hypoglycemia were to occur it should be treated per hospital protocol. Diet recommendation: carb controlled 60 gram limit no juice w/ trays District Sales Coordinator On-Call: AGAPITO Preferred Method of Communication/Reaching: [employer]ario. The above physician should be paged w/ questions/concerns about items being managed by Endocrinology Team. If there are any questions or concerns related to the info in this progress note please page the oncall consultant rn directly. On-Call information can be found in the [facility] Online Directory. We can also be reached by [employer]ario communication system. We appreciate the opportunity to participate in this pt's ongoing medical care. ANTICIPATED ENDOCRINE HOME GOING RECOMMENDATIONS: Optimized for Discharge from Endocrine standpoint: Yes Home Going Endocrine Rx Recommendations-- Current hosp [id number] insulin doses. Outpt Follow Up-- As scheduled. Appointment request sent to Endo office Staff: No SUBJECTIVE/HPI: CHIEF COMPLAINT: Abdominal Pain Type of DM: 2 Onset of DM: unclear Home DM Medication Regimen: U500 pen 280/280/280 DM control (last A1c/glucose data): Lab Results Component Value Date LABA1C 9.9 08/23/2020 Lab Results Component Value Date EAG 240 06/16/2019 Patient says he tried to consume soft foods yesterday but developed worsening of his abdominal discomfort. Patient says that he is no different today than he was yesterday. Review of Systems All other systems reviewed and are negative. Inpt ROS: [] MALCOLM [] diaphoresis [] tremor [] CP [] chest pressure [] palpitation [] SOB [x] Abd pain [] Nausea [] Emesis [] Other: (Legend: [x] if present; [] if not present) OBJECTIVE: Vitals: 09/27/20 1927 09/27/20 2333 09/28/20 0306 09/28/20 0802 BP: (!) 146/80 134/79 135/71 (!) 151/87 Pulse: 94 92 93 88 Resp: Temp: 97.2 F (36.2 C) 98.1 F (36.7 C) 97 F (36.1 C) 96.6 F (35.9 C) TempSrc: Temporal Temporal Temporal Temporal SpO2: 97% 94% 94% 96% Weight: Height: Physical Exam Vitals signs reviewed. Constitutional: General: He is not in acute distress. Appearance: Normal appearance. He is well-developed. He is obese. He is not ill- appearing, toxic-appearing or diaphoretic. HENT: Head: Normocephalic and atraumatic. Right Ear: External ear normal. Left Ear: External ear normal. Nose: Nose normal. Eyes: General: No scleral icterus. Right eye: No discharge. Left eye: No discharge. Conjunctiva/sclera: Conjunctivae normal. Pulmonary: Effort: Pulmonary effort is normal. No respiratory distress. Abdominal: General: Abdomen is protuberant. Bowel sounds are increased. Neurological: Mental Status: He is alert and oriented to person, place, and time. Psychiatric: Mood and Affect: Mood normal. Behavior: Behavior normal. 24 hour intake/output: No intake or output data in the 24 hours ending 09/28/20 0905 Diet: Dietary Nutrition Supplements: Low Calorie High Protein Supplement Dietary Nutrition Supplements: Snack (see comment) DIET DYSPHAGIA SOFT AND BITE-SIZED; Carb Control: 4 carb choices (60 gms)/meal; Dental Soft Medications (as per EMR): HomeMeds: Prior to Admission medications Medication Sig Start Date End Date Taking? Authorizing Provider cyclobenzaprine (FLEXERIL) 10 MG tablet Take 10 mg by mouth 3 times daily as needed for Muscle spasms Yes Historical Provider, tiZANidine (ZANAFLEX) 4 MG tablet Take 4 mg by mouth every 8 hours as needed Yes Historical Provider, ondansetron (ZOFRAN) 4 MG tablet Take 4 mg by mouth every 8 hours as needed for Nausea or Vomiting Yes Historical Provider, insulin regular human (HUMULIN R U-500 KWIKPEN) 500 UNIT/ML SOPN concentrated injection pen 280 units TID AC meals 08/28/20 Carito Thacker APRN - [employer] acetaminophen (TYLENOL) 325 MG tablet Take 650 mg by mouth every 6 hours as needed for Pain Historical Provider, SALINE NASAL SPRAY NA by Nasal route as needed Historical Provider, vitamin C (ASCORBIC ACID) 500 MG tablet Take 500 mg by mouth 2 times daily Historical Provider, megestrol (MEGACE) 40 MG tablet 2 po bid Patient taking differently: Take 80 mg by mouth 2 times daily 07/26/19 Justin Walsh MD ferrous sulfate 325 (65 Fe) MG tablet Take 1 tablet by mouth daily (with breakfast) Patient taking differently: Take 325 mg by mouth 2 times daily 05/21/19 Nabil Hill DO miconazole (MICOTIN) 2 % powder Apply topically 2 times daily. 01/17/19 Dom Beltran MD mineral oil-hydrophilic petrolatum (AQUAPHOR) ointment Apply topically as needed. 01/17/19 Dom Beltran MD FLUoxetine (PROZAC) 20 MG capsule Take 40 mg by mouth daily Historical Provider, ketoconazole (NIZORAL) 2 % shampoo Apply topically daily as needed for Itching Apply topically daily as needed. Historical Provider, Multiple Vitamins-Minerals (THERAPEUTIC MULTIVITAMIN-MINERALS) tablet Take 1 tablet by mouth daily Historical Provider, Magnesium Hydroxide (MILK OF MAGNESIA CONCENTRATE PO) Take 30 mLs by mouth as needed (constipation)Historical Provider, bisacodyl (DULCOLAX) [address] 10 mg rectally daily as needed for Constipation Historical Provider, bisacodyl (DULCOLAX) 5 MG EC tablet Take 5 mg by mouth every 12 hours as needed for Constipation Historical Provider, Biotin 10 MG tablet Take 10 mg by mouth daily Historical Provider, benzonatate (TESSALON) 200 MG capsule Take 200 mg by mouth 3 times daily as needed for Cough Historical ProviderMD ARIPiprazole (ABILIFY) 10 MG tablet Take 10 mg by mouth daily Historical Provider, Acidophilus Lactobacillus CAPS Take 1 tablet by mouth daily Historical Provider, aspirin 81 MG tablet Take 81 mg by mouth daily Historical Provider, simvastatin (ZOCOR) 20 MG tablet Take 20 mg by mouth nightly Historical Provider, lisinopril (PRINIVIL;ZESTRIL) 40 MG tablet Take 40 mg by mouth daily Historical Provider, furosemide (LASIX) 80 MG tablet Take 80 mg by mouth daily Historical Provider, Scheduled Meds: metoclopramide 10 mg Intravenous Q6H insulin regular human 145 Units Subcutaneous QAM AC dilTIAZem 180 mg Oral Daily insulin regular human 110 Units Subcutaneous Daily before lunch insulin regular human 135 Units Subcutaneous Dinner pantoprazole 40 mg Intravenous BID And sodium chloride (PF) 10 mL Intravenous BID lactobacillus 1 capsule Oral Daily ARIPiprazole 10 mg Oral Daily aspirin 81 mg Oral Daily ferrous sulfate 325 mg Oral BID WC FLUoxetine 40 mg Oral Daily furosemide 80 mg Oral Daily lisinopril 40 mg Oral Daily megestrol 80 mg Oral BID therapeutic multivitamin-minerals 1 tablet Oral Daily atorvastatin 20 mg Oral Daily vitamin C 500 mg Oral BID sodium chloride flush 10 mL Intravenous 2 times per day enoxaparin 40 mg Subcutaneous Daily Continuous Infusions: dextrose PRN Meds:promethazine, morphine (PF), metoprolol, benzonatate, bisacodyl, bisacodyl, cyclobenzaprine, tiZANidine, traMADol, sodium chloride flush, acetaminophen OR acetaminophen, polyethylene glycol, glucose, dextrose, glucagon (rDNA), dextrose Diagnostic Workup: I reviewed pertinent Laboratory results, Radiographic results, and Other Clinical Notes at the timeof today's encounter. BMP: Recent Labs 09/26/20 0613 NA 133* K 4.8 CL 97* CO2 24 BUN 32* CREATININE 1.13 GLUCOSE 207* Glucose: Recent Labs 09/26/20 1137 09/26/20 1634 09/26/20 2050 09/27/20 0802 09/27/20 1127 09/27/20 1717 09/27/20 1926 09/28/20 0803 POCGLU 308* 225* 124* 151* 312* 275* 248* 233* HgbA1C: No results for input(s): LABA1C in the last 72 hours. Hepatic: Recent Labs 09/26/20 0613 ALKPHOS 120 ALT 127* AST 64* PROT 7.7 BILITOT 1.4* LABALBU 4.0 Lipids: No results for input(s): CHOL, TRIG, HDL, LDLCALC in the last 72 hours. Invalid input(s): LDL TSH: Lab Results Component Value Date TSH 1.112 05/09/2019 T4FREE 1.15 05/09/2019 Radiology reportsas per the Radiologist Radiology: Xr Abdomen (kub) (single Ap View) Result Date: 09/18/2020 Patient Name: WILL JACINTO ---Diagnostic Radiology--- Exam Date/Time 09/18/2020 09:25:00 EST Exam CR Abdomen AP Ordering Physician DO HILL LISA Accession Number [id number] CPT4 Codes 57811 () Reason For Exam ileus Report Clinical Information: Abdominal pain and nausea. Ileus. Abdomen, KUB: A multiple AP supine radiographs of the abdomen demonstrate a distended gas filled stomach. There is a nonspecific bowel gas pattern. Gas is seen within multiple nondilated and mildly dilated loops small bowel. Gas and fecal residue are seen in normal caliber large bowel. There is no obvious free intraperitoneal gas on limited evaluation. No suspect calcification, organomegaly or soft tissue mass is seen. There is excreted urinary contrast within the urinarybladder. Impression: 1. Gaseous distention of the stomach which is nonspecific and could be relatedto gastroparesis, now with obstruction, aerophagia. 2. Nonspecific bowel gas pattern without evidence of obstruction 3. No other significant radiographic abnormality. Report Dictated on --- Final --- Dictating Physician: MD BARRAGAN HARLAN Signed Date and Time: 09/18/20209:48 am Signed by: MD BARRAGAN HARLAN Transcribed Date and Time: 09/18/2020 10:25 Ct Abdomen Pelvis W Contrast Result Date: 09/17/2020 Patient Name: WILL JACINTO ---CT--- Exam Date/Time 09/17/202022:15:[address] Abdomen/Pelvis w/ IV Contrast (IV Onl Ordering Physician [id number] SHEIKH Accession Number [id number] CPT4 Codes 94257 (CT Abdomen/Pelvis w/ IV Contrast (IV Onl), Q9967 (CT ISOVUE 370MG/ML&[id number]&ML&1) Reason For Exam abd pain/tenderness Report CT ABDOMEN AND PELVIS CLINICAL INDICATION: abd pain/tenderness TECHNIQUE: CT scan of the abdomen and pelvis with IV contrast. Multiplanar reformations. COMPARISON: 06/25/2018 FINDINGS: Right middle lobe lung nodule measures 3.2 mm. This area was not included on the prior scan. Lung bases otherwise clear. No free air seen. Diffuse hepatic steatosis. Normal gallbladder and biliary tree. Spleen shows no significant abnormality. Adrenal glands show no significant abnormality. Kidneys show no significant abnormality. Pancreas shows no significant abnormality. Abdominal aorta is nonaneurysmal. No bowel obstruction. Appendix is not seen. Uterus is enlarged, likely related to fibroids, but new since the previous study. No ureteral calculus seen on either side. Moderate distention of the stomach with fluid and gas. Mildly prominent small bowel loops also filled with gas, potentially an ileus. IMPRESSION: 1. Enlarged uterus likely relates to fibroids, new since the previous study. 2. Diffuse hepatic steatosis. 3. Right middle lobe nodule. No suspicious morphology. Fleischner Society guidelines indicate that for solitary or multiple nodules less than 6 mm in average cross- sectional size in a low risk patient need no specific follow-up. However, a 12 month follow-up can be considered if nodule morphology is suspicious or nodule is in an upper lobe. In a high risk patient with solitary or multiple nodules less than 6 mm in average cross-sectional size, recommendation is for optional CT follow-up in 12 months. 4. Moderate distention of the stomach with fluid and gas with gas present throughoutnumerous mildly prominent small bowel loops, consider possible ileus. 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) Bipolar 1 disorder (HCC) Blood circulation, collateral Cellulitis chronic L lower leg Depression Diabetes mellitus (HCC) Type II, on insulin Disease of blood and blood forming organ Endometrial hyperplasia Hx of blood clots RLE prior to amputation Hyperlipidemia Hypertension Lymphedema 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 No pertinent family history. Social History: Social History Tobacco Use Smoking status: Never Smoker Smokeless tobacco: Never Used Substance Use Topics Alcohol use: No Drug use: Never Portions of the information within this encounter were entered using an electronic dictation system. Best attempts were made to edit/proofread the information prior to note completion. Despite the review of information, some errors may remain. If there are questions related to the information contained within the note please contact the signing physician directly. I spent 25 minutes with the pt which involved more than 51% of the time in coordination of care, medical evaluation, review of records, and/or counseling of the pt regarding his/her condition/diseasestate/prognosis on the date of this note. * Miguel Angel Lucia M, TAPROOM ATTENDANT - 09/27/2020 3:13 PM EST Physical Therapy Facility/Department: [facility] Daily Treatment Note NAME: Will Jacinto : 1965 Date of Service: 09/27/2020 Discharge Recommendations: ECF with PT Assessment Assessment: Pt still continues to requires assist with rolling and bed mobility, requiring max A x 1. Pt able to complete bed level exercises with good strentgh and ROM. Pt needs slight increased time to complete due to fatigue. Pt is expected to benefit from continued therapy in order to increase overal independence. REQUIRES PT FOLLOW UP: Yes Activity Tolerance Activity Tolerance: Patient limited by fatigue;Patient limited by endurance Patient Diagnosis(es): The primary encounter diagnosis was Ileus ([facility]). Diagnoses of Nausea and vomiting, intractability of vomiting not specified, unspecified vomiting type and Generalized abdominalpain were also pertinent to this visit. has a past medical history of Abnormal uterine bleeding (AUB), Above knee amputation of right lowerextremity ([facility]), Bipolar 1 disorder (HCC), Blood circulation, collateral, Cellulitis, Depression, Diabetes mellitus (HCC), Disease of blood and blood forming organ, Endometrial hyperplasia, Hx of blood clots, Hyperlipidemia, Hypertension, Lymphedema, MDRO (multiple drug resistant organisms) resistance, Morbidly obese (HCC), Osteomyelitis (HCC), Osteomyelitis (HCC), Schizophrenia (HCC), Sleep apnea, and Venous insufficiency. has a past surgical history that includes Abscess Drainage (Right, 09/09/2018); [place] tooth extraction; Dilation and curettage of uterus (05/18/2019); above knee amputation (Right, 06/16/2019); and Endoscopy, colon, diagnostic (09/19/2020). Restrictions Restrictions/Precautions Restrictions/Precautions: General Precautions, Fall Risk(R AKA, identifies as MALE "MARIA LUISA", tele, obese) Subjective General Chart Reviewed: Yes Family / Caregiver Present: No Subjective Subjective: Pt is agreeable to therapy General Comment Comments: Per RN okay to see Pain Screening Patient Currently in Pain: Denies Vital Signs Patient Currently in Pain: Denies Objective Bed mobility Rolling to Left: Maximum assistance Rolling to Right: Maximum assistance Comment: Denied dizziness. Pt educated to use L LE to help bridge in order to roll side to side to use bed kelley. Pt able to use UE bed features to help assist. Exercises Straight Leg Raise: 1 set of 5 reps L LE reclined Quad Sets: 1 set of 5 reps L LE reclined Heelslides: 1 set of 5 reps L LE reclined Gluteal Sets: 1 set of 5 reps B LE reclined Hip Abduction: 1 set of 5 reps L LE reclined Ankle Pumps: 1 set of 5 reps B LE reclined Comments: Pt able to complete L LE exercises with good ROM and strength. Pt just needs slight increased time to complete. Other exercises Other exercises?: Yes Other exercises 1: Hip adduction: 1 set of 5 reps B LE supine isometrically Goals Short term goals Time Frame for Short term goals: 5 visits Short term goal 1: Pt will complete 2-3 sets/10 reps of LE exercises to improve LE strength(not met) Short term goal 2: Pt will complete supine<->sit at min A to improve bed mobility(not met) Short term goal 3: Pt will complete sit<->stand with bariatric FWW at supervision in preparation for mobility(N/A) Short term goal 4: Pt will complete stand pivot transfers at SBA to improve functional mobility(N/A) Patient Goals Patient goals : pt did not state Plan Plan Times per week: 3 visits Times per day: Daily Current Treatment Recommendations: Strengthening, Balance Training, Functional Mobility Training, Transfer Training, Home Exercise Program, Safety Education & Training, Patient/Caregiver Education & Training, Equipment Evaluation, Education, & procurement, Positioning Plan Comment: Goals and/or treatment plan were established in collaboration with patient Safety Devices Type of devices: All fall risk precautions in place, Call light within reach, Gait belt, Patient atrisk for falls, Left in bed, Nurse notified Therapy Time Individual Concurrent Group Co-treatment Time In 1338 Time Out 1350 Minutes 12 Timed Code Treatment Minutes: 10 Minutes(1 ther ex) Lucia Michelle PTA * Art Stapleton MD - 09/27/2020 3:04 PM EST Progress Note 09/27/2020 3:04 PM Subjective: Admit Date: 09/17/2020 Interval History: gastroparesis--eating well this afternoon--poorly controlled diabetes Dietary Nutrition Supplements: Low Calorie High Protein Supplement Dietary Nutrition Supplements: Snack (see comment) DIET DYSPHAGIA SOFT AND BITE-SIZED; Carb Control: 4 carb choices (60 gms)/meal; Dental Soft No intake or output data in the 24 hours ending 09/27/20 1504 Medications: dextrose dilTIAZem 180 mg Oral Daily metoclopramide 10 mg Intravenous Q6H insulin regular human 140 Units Subcutaneous QAM AC insulin regular human 110 Units Subcutaneous Daily before lunch insulin regular human 135 Units Subcutaneous Dinner pantoprazole 40 mg Intravenous BID And sodium chloride (PF) 10 mL Intravenous BID lactobacillus 1 capsule Oral Daily ARIPiprazole 10 mg Oral Daily aspirin 81 mg Oral Daily ferrous sulfate 325 mg Oral BID WC FLUoxetine 40 mg Oral Daily furosemide 80 mg Oral Daily lisinopril 40 mg Oral Daily megestrol 80 mg Oral BID therapeutic multivitamin-minerals 1 tablet Oral Daily atorvastatin 20 mg Oral Daily vitamin C 500 mg Oral BID sodium chloride flush 10 mL Intravenous 2 times per day enoxaparin 40 mg Subcutaneous Daily Recent Labs 09/26/20 0455 WBC 9.8 HGB 12.6 PLT 508* Recent Labs 09/26/20 0613 NA 133* K 4.8 CL 97* CO2 24 BUN 32* CREATININE 1.13 GLUCOSE 207* Recent Labs 09/26/20 0613 AST 64* ALT 127* BILITOT 1.4* ALKPHOS 120 Troponin T: Recent Labs 09/24/20 1541 TROPONINI <0.012 Pro-BNP: No results for input(s): BNP in the last 72 hours. INR: No results for input(s): INR in the last 72 hours. Objective: Vitals: BP 102/60 Pulse 99 Temp 96.4 F (35.8 C) (Temporal) Resp 19 Ht 5' 6" (1.676 m) Wt (!) 343 lb 1.6 oz (155.6 kg) SpO2 96% BMI 55.38 kg/m General appearance: alert and cooperative with exam, no distress Lungs: clear to auscultation bilaterally Heart: regular rhythm, S1, S2 normal, no murmur, click, rub or gallop Abdomen: soft, non-tender; bowel sounds normal; no masses, no organomegaly Extremities: stasis changes Assessment and Plan: 1. To [facility] soon 2. Active Problems: Ileus (HCC) Nausea and vomiting Esophagitis Resolved Problems: * No resolved hospital problems. * ART STAPLETON, MDProgress Note Date:09/27/2020 Room:[address] [place] [address] Patient Name:Will Jacinto Date of :1965 Age:54 y.o. Subjective Subjective Review of Systems Objective Vitals Last 24 Hours: TEMPERATURE: Temp Av.3 F (35.2 C) Min: 86.1 F (30.1 C) Max: 98.9 F (37.2 C) RESPIRATIONS RANGE: Resp Av.6 Min: 17 Max: 20 PULSE OXIMETRY RANGE: SpO2 Av.1 % Min: 95 % Max: 97 % PULSE RANGE: Pulse Av.6 Min: 76 Max: 102 BLOOD PRESSURE RANGE: Systolic (24hrs), Av , Min:100 , Max:144 ; Diastolic (24hrs), Av, Min:59, Max:84 I/O (24Hr): No intake or output data in the 24 hours ending 09/27/20 1504 Objective Labs/Imaging/Diagnostics Labs: CBC: Recent Labs 09/26/20 0455 WBC 9.8 RBC 4.41 HGB 12.6 HCT 38.5 MCV 87.2 RDW 15.5* PLT 508* CHEMISTRIES: Recent Labs 09/24/20 1541 09/26/20 0613 NA -- 133* K -- 4.8 CL -- 97* CO2 -- 24 BUN -- 32* CREATININE -- 1.13 GLUCOSE -- 207* MG 1.7 -- PT/INR:No results for input(s): PROTIME, INR in the last 72 hours. APTT:No results for input(s): APTT in the last 72 hours. LIVER PROFILE: Recent Labs 09/26/20 0613 AST 64* ALT 127* BILITOT 1.4* ALKPHOS 120 Imaging Last 24 Hours: No results found. Assessment//Plan Hospital Problems Last Modified POA Ileus (HCC) 09/17/2020 Yes Nausea and vomiting 09/22/2020 Yes Esophagitis 09/22/2020 Yes Assessment & Plan * Анна Villela MD - 09/27/2020 2:49 PM EST Department of Internal Medicine Division of Endocrinology, Diabetes, & Metabolism Endocrinology Progress Note Patient Name: Will Jacinto : 1965 AGE: 54 y.o. Room/Bed: 260/2601 Admission Date: 09/17/2020 7:46 PM Consult Date: 09/18/20 Visit Date: 09/27/2020 Reason for Endocrine Consult: DM mgmt Provider/Team Requesting Consult: Joann PCP: Jared Guzman MD Outpt District Sales Coordinator: yes, MG Lee/Kedar ASSESSMENT: T2DM uncontrolled with hyperglycemia Insulin resistance Morbid obesity Body mass index is 55.38 kg/m . Right AKA Ileus/gastroparesis/esophagitis Fatty liver PLAN: - will continue U500 pen at 140-110-135 units TID before meals - call Endo if NPO for new insulin orders (may need to order NPH) - monitor blood glucose QAC and HS - carb control diet; advance diet as tolerated - counseled patient regarding DM management - discussed insulin regimen - management of hypoglycemia per protocol - GI following for ileus Inpt GMF glucose goal 150. Inpt ICU glucose goal 150-180. ANTICIPATED ENDOCRINE HOME GOING RECOMMENDATIONS: Optimized for Discharge from Endocrine standpoint: No Home Going Endocrine Rx Recommendations-- Current hosp [id number] insulin doses Outpt Follow Up-- As scheduled with Dr. Lee SUBJECTIVE/HPI: CHIEF COMPLAINT: Abdominal Pain Pt being followed for: DM Type of DM: 2 Onset of DM: unclear Home DM Medication Regimen: U500 pen 280/280/280 DM control (last A1c/glucose data): Lab Results Component Value Date LABA1C 9.9 08/23/2020 Lab Results Component Value Date EAG 240 06/16/2019 Nausea is improved. No vomiting. Pt reports that no BM but passing gas. PO intake has been variable. Started soft diet today. Pt currently eating meat, potatoes, and carrots. He has stopped drinking pop. U-500 held for BF today as pt did not eat much. Denies CP/SOB BG 151-312 today ROS negative except for those mentioned in HPI. Dietary Nutrition Supplements: Low Calorie High Protein Supplement Dietary Nutrition Supplements: Snack (see comment) DIET DYSPHAGIA SOFT AND BITE-SIZED; Carb Control: 4 carb choices (60 gms)/meal; Dental Soft OBJECTIVE: Vitals: 09/26/20 2302 09/27/20 0202 09/27/20 0805 09/27/20 1107 BP: 107/63 127/66 100/74 (!) 101/59 Pulse: 98 89 94 76 Resp: Temp: 97 F (36.1 C) 98.9 F (37.2 C) 96.3 F (35.7 C) (!) 86.1 F (30.1 C) TempSrc: Temporal Temporal Temporal Temporal SpO2: 96% 95% 96% 97% Weight: Height: Physical Exam Vitals signs reviewed. Constitutional: General: He is not in acute distress. Appearance: He is well-developed. He is obese. Eyes: General: No scleral icterus. Conjunctiva/sclera: Conjunctivae normal. Neck: Musculoskeletal: Neck supple. Thyroid: No thyromegaly. Cardiovascular: Rate and Rhythm: Normal rate and regular rhythm. Pulses: Normal pulses. Heart sounds: Normal heart sounds. No murmur. Pulmonary: Effort: Pulmonary effort is normal. No respiratory distress. Breath sounds: No wheezing, rhonchi or rales. Abdominal: General: There is distension. Palpations: Abdomen is soft. There is no hepatomegaly, splenomegaly or mass. Tenderness: There is no abdominal tenderness. There is no rebound. Musculoskeletal: General: Swelling and deformity present. No tenderness. Comments: R AKA Lymphadenopathy: Cervical: No cervical adenopathy. Skin: General: Skin is warm and dry. Findings: Erythema and rash present. Comments: No open skin lesions Neurological: General: No focal deficit present. Mental Status: He is alert. Motor: No tremor. Psychiatric: Mood and Affect: Mood normal. Affect is flat. Speech: Speech normal. Behavior: Behavior is slowed. Behavior is cooperative. 24 hour intake/output: No intake or output data in the 24 hours ending 09/27/20 9251 Diet: Dietary Nutrition Supplements: Low Calorie High Protein Supplement Dietary Nutrition Supplements: Snack (see comment) DIET DYSPHAGIA SOFT AND BITE-SIZED; Carb Control: 4 carb choices (60 gms)/meal; Dental Soft Medications (as per EMR): HomeMeds: Prior to Admission medications Medication Sig Start Date End Date Taking? Authorizing Provider cyclobenzaprine (FLEXERIL) 10 MG tablet Take 10 mg by mouth 3 times daily as needed for Muscle spasms Yes Historical Provider, tiZANidine (ZANAFLEX) 4 MG tablet Take 4 mg by mouth every 8 hours as needed Yes Historical Provider, ondansetron (ZOFRAN) 4 MG tablet Take 4 mg by mouth every 8 hours as needed for Nausea or Vomiting Yes Historical Provider, insulin regular human (HUMULIN R U-500 KWIKPEN) 500 UNIT/ML SOPN concentrated injection pen 280 units TID AC meals 08/28/20 Carito Thacker, PERSONAL CARE SERVICE PROVIDER - SHE[employer]ING [employer] WORKER acetaminophen (TYLENOL) 325 MG tablet Take 650 mg by mouth every 6 hours as needed for Pain Historical Provider, SALINE NASAL SPRAY NA by Nasal route as needed Historical Provider, vitamin C (ASCORBIC ACID) 500 MG tablet Take 500 mg by mouth 2 times daily Historical Provider, megestrol (MEGACE) 40 MG tablet 2 po bid Patient taking differently: Take 80 mg by mouth 2 times daily 07/26/19 Justin Walsh MD ferrous sulfate 325 (65 Fe) MG tablet Take 1 tablet by mouth daily (with breakfast) Patient taking differently: Take 325 mg by mouth 2 times daily 05/21/19 Nabil Hill, miconazole (MICOTIN) 2 % powder Apply topically 2 times daily. 01/17/19 Dom Beltran MD mineral oil-hydrophilic petrolatum (AQUAPHOR) ointment Apply topically as needed. 01/17/19 Dom Beltran MD FLUoxetine (PROZAC) 20 MG capsule Take 40 mg by mouth daily Historical Provider, ketoconazole (NIZORAL) 2 % shampoo Apply topically daily as needed for Itching Apply topically daily as needed. Historical Provider, Multiple Vitamins-Minerals (THERAPEUTIC MULTIVITAMIN-MINERALS) tablet Take 1 tablet by mouth daily Historical Provider, Magnesium Hydroxide (MILK OF MAGNESIA CONCENTRATE PO) Take 30 mLs by mouth as needed (constipation)Historical Provider, bisacodyl (DULCOLAX) [address] 10 mg rectally daily as needed for Constipation Historical Provider, bisacodyl (DULCOLAX) 5 MG EC tablet Take 5 mg by mouth every 12 hours as needed for Constipation Historical Provider, Biotin 10 MG tablet Take 10 mg by mouth daily Historical Provider, benzonatate (TESSALON) 200 MG capsule Take 200 mg by mouth 3 times daily as needed for Cough Historical Provider, ARIPiprazole (ABILIFY) 10 MG tablet Take 10 mg by mouth daily Historical Provider, Acidophilus Lactobacillus CAPS Take 1 tablet by mouth daily Historical Provider, aspirin 81 MG tablet Take 81 mg by mouth daily Historical Provider, simvastatin (ZOCOR) 20 MG tablet Take 20 mg by mouth nightly Historical Provider, lisinopril (PRINIVIL;ZESTRIL) 40 MG tablet Take 40 mg by mouth daily Historical Provider, furosemide (LASIX) 80 MG tablet Take 80 mg by mouth daily Historical Provider, Scheduled Meds: dilTIAZem 180 mg Oral Daily metoclopramide 10 mg Intravenous Q6H insulin regular human 140 Units Subcutaneous QAM AC insulin regular human 110 Units Subcutaneous Daily before lunch insulin regular human 135 Units Subcutaneous Dinner pantoprazole 40 mg Intravenous BID And sodium chloride (PF) 10 mL Intravenous BID lactobacillus 1 capsule Oral Daily ARIPiprazole 10 mg Oral Daily aspirin 81 mg Oral Daily ferrous sulfate 325 mg Oral BID WC FLUoxetine 40 mg Oral Daily furosemide 80 mg Oral Daily lisinopril 40 mg Oral Daily megestrol 80 mg Oral BID therapeutic multivitamin-minerals 1 tablet Oral Daily atorvastatin 20 mg Oral Daily vitamin C 500 mg Oral BID sodium chloride flush 10 mL Intravenous 2 times per day enoxaparin 40 mg Subcutaneous Daily Continuous Infusions: dextrose PRN Meds:promethazine, morphine (PF), metoprolol, benzonatate, bisacodyl, bisacodyl, cyclobenzaprine, tiZANidine, traMADol, sodium chloride flush, acetaminophen OR acetaminophen, polyethylene glycol, glucose, dextrose, glucagon (rDNA), dextrose Diagnostic Workup: I reviewed pertinent Laboratory results, Radiographic results, and Other Clinical Notes at the timeof today's encounter. BMP: Recent Labs 09/26/20 0613 NA 133* K 4.8 CL 97* CO2 24 BUN 32* CREATININE 1.13 GLUCOSE 207* Glucose: Recent Labs 09/25/20 2055 09/26/20 0730 09/26/20 0745 09/26/20 1137 09/26/20 1634 09/26/20 2050 09/27/20 0802 09/27/20 1127 POCGLU 126* 223* 259* 308* 225* 124* 151* 312* HgbA1C: No results for input(s): LABA1C in the last 72 hours. Hepatic: Recent Labs 09/26/20 0613 ALKPHOS 120 ALT 127* AST 64* PROT 7.7 BILITOT 1.4* LABALBU 4.0 Lipids: No results for input(s): CHOL, TRIG, HDL, LDLCALC in the last 72 hours. 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) Bipolar 1 disorder (HCC) Blood circulation, collateral Cellulitis chronic L lower leg Depression Diabetes mellitus (HCC) Type II, on insulin Disease of blood and blood forming organ Endometrial hyperplasia Hx of blood clots RLE prior to amputation Hyperlipidemia Hypertension Lymphedema 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 No pertinent family history. Social History: Social History Tobacco Use Smoking status: Never Smoker Smokeless tobacco: Never Used Substance Use Topics Alcohol use: No Drug use: Never I spent 25 minutes with the pt which involved more than 51% of the time in coordination of care, medical evaluation, review of records, and/or counseling of the pt regarding his/her condition/diseasestate/prognosis on the date of this note. * Chris Muniz MD - 09/27/2020 11:43 AM EST GASTROENTEROLOGY PROGRESS NOTE Patient: Will Jacinto :1965 Primary Care Physician: Jared Guzman MD History: The patient is a 54 y.o. adult with less nausea this morning. No emesis, less nausea. Wants try soft diet. Current Medications: Current Facility-Administered Medications Medication Dose Route Frequency Provider Last Rate Last Dose dilTIAZem (CARDIZEM CD) extended release capsule 180 mg 180 mg Oral Daily Priyank Rios MD 180 mg at 09/27/20 0757 metoclopramide (REGLAN) injection 10 mg 10 mg Intravenous Q6H Chris Muniz MD 10 mg at 09/27/20 1125 perflutren lipid microspheres (DEFINITY) injection 1.65 mg 1.5 mL Intravenous ONCE PRN Priyank Rios MD sodium chloride flush 0.9 % injection 10 mL 10 mL Intravenous PRN Priyank Rios MD insulin regular human (humuLIN R U-500 KWIKPEN) 500 UNIT/ML concentrated injection pen 140 Units 140 Units Subcutaneous QAM TANIA Garibay DO 140 Units at 09/26/20 0945 insulin regular human (humuLIN R U-500 KWIKPEN) 500 UNIT/ML concentrated injection pen 110 Units 110 Units Subcutaneous Daily before lunch Asuncion Garibay, DO 110 Units at 09/27/20 1128 insulin regular human (humuLIN R U-500 KWIKPEN) 500 UNIT/ML concentrated injection pen 135 Units 135 Units Subcutaneous Dinner Asuncion Garibay, DO 135 Units at 09/26/20 1855 promethazine (PHENERGAN) injection 25 mg 25 mg Intramuscular Q6H PRN Art Stapleton MD 25 mg at 09/25/202011 morphine (PF) injection 4 mg 4 mg Intravenous Q6H PRN Kylah David MD 4 mg at 09/22/20 0054 metoprolol (LOPRESSOR) injection 5 mg 5 mg Intravenous Q6H PRN Priyank Rios MD 5 mg at 09/21/20 182 pantoprazole (PROTONIX) injection 40 mg 40 mg Intravenous BID Sergio Sibley, DO 40 mg at 09/27/20 0755 And sodium chloride (PF) 0.9 % injection 10 mL 10 mL Intravenous BID Sergio Sibley, DO 10 mL at 09/27/20 0758 lactobacillus (CULTURELLE) capsule 1 capsule 1 capsule Oral Daily Nabil M Esterle, DO 1 capsule at 09/27/20 0758 ARIPiprazole (ABILIFY) tablet 10 mg 10 mg Oral Daily Nabil M Esterle, DO 10 mg at 09/27/20 0757 aspirin chewable tablet 81 mg 81 mg Oral Daily Nabil M Esterle, DO 81 mg at 09/27/20 0757 benzonatate (TESSALON) capsule 200 mg 200 mg Oral TID PRN Nabil M Esterle, DO bisacodyl (DULCOLAX) suppository 10 mg 10 mg Rectal Daily PRN Nabil M Esterle, DO bisacodyl (DULCOLAX) EC tablet 5 mg 5 mg Oral Q12H PRN Nabil M Esterle, DO 5 mg at 09/24/20 1828 cyclobenzaprine (FLEXERIL) tablet 10 mg 10 mg Oral TID PRN Nabil M Esterle, DO 10 mg at 09/27/20 0755 ferrous sulfate (IRON 325) tablet 325 mg 325 mg Oral BID WC Nabil M Esterle, DO 325 mg at 09/27/20 0757 FLUoxetine (PROZAC) capsule 40 mg 40 mg Oral Daily Nabil M Esterle, DO 40 mg at 09/27/20 0756 furosemide (LASIX) tablet 80 mg 80 mg Oral Daily Nabil M Esterle, DO 80 mg at 09/27/20 0757 lisinopril (PRINIVIL;ZESTRIL) tablet 40 mg 40 mg Oral Daily Nabil M Esterle, DO 40 mg at 09/27/20 0757 megestrol (MEGACE) tablet 80 mg 80 mg Oral BID Nabil M Esterle, DO 80 mg at 09/27/20 0756 therapeutic multivitamin-minerals 1 tablet 1 tablet Oral Daily Nabil M Esterle, DO 1 tablet at 09/27/20 0757 atorvastatin (LIPITOR) tablet 20 mg 20 mg Oral Daily Nabil M Esterle, DO 20 mg at 09/27/20 0756 tiZANidine (ZANAFLEX) tablet 4 mg 4 mg Oral Q8H PRN Nabil M Esterle, DO 4 mg at 09/27/20 0756 traMADol (ULTRAM) tablet 50 mg 50 mg Oral Q12H PRN Nabil M Esterle, DO 50 mg at 09/19/20 2144 vitamin C (ASCORBIC ACID) tablet 500 mg 500 mg Oral BID Nabil M Esterle, DO 500 mg at 09/27/20 0756 sodium chloride flush 0.9 % injection 10 mL 10 mL Intravenous 2 times per day Nabil M Esterle, DO 10mL at 09/27/20 0758 sodium chloride flush 0.9 % injection 10 mL 10 mL Intravenous PRN Nabil M Esterle, DO acetaminophen (TYLENOL) tablet 650 mg 650 mg Oral Q6H PRN Nabil M Esterle, DO 650 mg at 09/21/20 0908 Or acetaminophen (TYLENOL) suppository 650 mg 650 mg Rectal Q6H PRN Nabil M Esterle, DO polyethylene glycol (GLYCOLAX) packet 17 g 17 g Oral Daily PRN Nabil M Esterle, DO 17 g at 09/24/20 1245 enoxaparin (LOVENOX) injection 40 mg 40 mg Subcutaneous Daily Nabil M Esterle, DO 40 mg at 09/27/20 0757 glucose (GLUTOSE) 40 % oral gel 15 g 15 g Oral PRN Nabil M Esterle, DO dextrose 50 % IV solution 12.5 g Intravenous PRN Nabil M Esterle, DO glucagon (rDNA) injection 1 mg 1 mg Intramuscular PRN Nabil M Esterle, DO dextrose 5 % solution 100 mL/hr Intravenous PRN Nabil M Esterle, DO Intake andOutput: No intake/output data recorded. No intake/output data recorded. PhysicalExam: BP (!) 101/59 Pulse 76 Temp (!) 86.1 F (30.1 C) (Temporal) Resp 19 Ht 5' 6" (1.676 m) Wt (!) 343 lb 1.6 oz (155.6 kg) SpO2 97% BMI 55.38 kg/m Physical Exam Not in distress Lungs clear Cor s1 s2 Abd. Obese non tender CBC: Recent Labs 09/26/20 0455 WBC 9.8 HGB 12.6 HCT 38.5 PLT 508* CMP: Recent Labs 09/26/20 0613 NA 133* K 4.8 CL 97* CO2 24 BUN 32* CREATININE 1.13 GLUCOSE 207* CALCIUM 8.9 HEPATIC: Recent Labs 09/26/20 0613 AST 64* ALT 127* BILITOT 1.4* ALKPHOS 120 INR: No results for input(s): INR in the last 72 hours. ASSESSMENT: 1. Nausea, likely ileus, gastroparesis, functional PLAN: 1. Trial of soft low car diet 2. Continue reglan IV q 6 hours. * Priyank Rios MD - 09/27/2020 11:12 AM EST Cardiology Progress Note Patient Name: Will Jacinto Patient Age: 54 y.o. DIAGNOSIS Patient Active Problem List Diagnosis Cellulitis Chronic osteomyelitis (HCC) Uncontrolled type 2 diabetes mellitus with complication (HCC) Type 2 diabetes mellitus with hyperglycemia, with long-term current use of insulin (HCC) Class 3 severe obesity due to excess calories with serious comorbidity and body mass index (BMI) of50.0 to 59.9 in adult (HCC) 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 (HCC) Cellulitis and abscess of lower extremity Hyperandrogenism Chronic acquired lymphedema Left leg cellulitis Class 3 severe obesity due to excess calories with serious comorbidity and body mass index (BMI) of60.0 to 69.9 in adult (HCC) Post-menopausal bleeding Hyperglycemia Diabetic foot infection (HCC) S/P AKA (above knee amputation) unilateral, right (HCC) Morbid obesity (HCC) Ileus (HCC) Nausea and vomiting Esophagitis LAB Lab Results Component Value Date NA 133 09/26/2020 K 4.8 09/26/2020 CL 97 09/26/2020 CO2 24 09/26/2020 BUN 32 09/26/2020 CREATININE 1.13 09/26/2020 GLUCOSE 207 09/26/2020 CALCIUM 8.9 09/26/2020 Lab Results Component Value Date WBC 9.8 09/26/2020 HGB 12.6 09/26/2020 HCT 38.5 09/26/2020 MCV 87.2 09/26/2020 PLT 508 (H) 09/26/2020 Lab Results Component Value Date TROPONINI <0.012 09/24/2020 Lab Results Component Value Date TSH 1.112 05/09/2019 Lab Results Component Value Date LABA1C 9.9 08/23/2020 Lab Results Component Value Date EAG 240 06/16/2019 Recent Labs 09/26/20 0613 ALKPHOS 120 ALT 127* AST 64* BILITOT 1.4* LABALBU 4.0 VITALS BP (!) 101/59 Pulse 76 Temp (!) 86.1 F (30.1 C) (Temporal) Resp 19 Ht 5' 6" (1.676 m) Wt (!) 343 lb 1.6 oz (155.6 kg) SpO2 97% BMI 55.38 kg/m I&O No intake/output data recorded. SUBJECTIVE: The patient had an episode of SVT and short run No arrythmia Overnight. OBJECTIVE: BP 111/61 Pulse 103 Temp 96.6 F (35.9 C) (Temporal) Resp 20 Ht 5' 6" (1.676 m) Wt (!) 343lb 1.6 oz (155.6 kg) SpO2 92% BMI 55.38 kg/m 10 systems reviewed as seen below Neck: Neck JVP 0, No carotid bruits, thyroid not enlarged Cardiovascular system: NSR, Short systolic murmur, no gallop Chest: normal breath sounds Abdomen: Abdomen soft/non-tender, no organomegaly, bowel sounds present Extremities: No edema, no varicosity Endocrine : Hypothyroidism No Diabites No GI system : GIB No Renal : CKD No KILNMAN : CVA/TIA No Musculoskeletal system : DJD No CARDIAC TESTING EKG: Nsr., pacs Echo: to Follow.poor Echo. No Images. Troponin: Stress Test: Cardiac Cath: IMPRESSION : Svt & Ns Vt.>> Stable No Sig. Arrythmia.>> nsr. PLAN : Add Cardizem.> bp & Hr Stable. Pt/ot Priyank Rios MD * Nabil Hill, DO - 09/26/2020 6:20 PM EST Hospitalist Progress Note 09/26/2020 6:20 PM Subjective: Admit Date: 09/17/2020 PCP: Jared Guzman MD Interval History: pt doing ok he is still complaining of nausea and feeling like hes going throw up. Still on iv reglan. DIET FULL LIQUID; Carb Control: 4 carb choices (60 gms)/meal Dietary Nutrition Supplements: Low Calorie High Protein Supplement Dietary Nutrition Supplements: Snack (see comment) No intake or output data in the 24 hours ending 09/26/20 1820 Medications: dextrose dilTIAZem 180 mg Oral Daily metoclopramide 10 mg Intravenous Q6H insulin regular human 140 Units Subcutaneous QAM AC insulin regular human 110 Units Subcutaneous Daily before lunch insulin regular human 135 Units Subcutaneous Dinner pantoprazole 40 mg Intravenous BID And sodium chloride (PF) 10 mL Intravenous BID lactobacillus 1 capsule Oral Daily ARIPiprazole 10 mg Oral Daily aspirin 81 mg Oral Daily ferrous sulfate 325 mg Oral BID WC FLUoxetine 40 mg Oral Daily furosemide 80 mg Oral Daily lisinopril 40 mg Oral Daily megestrol 80 mg Oral BID therapeutic multivitamin-minerals 1 tablet Oral Daily atorvastatin 20 mg Oral Daily vitamin C 500 mg Oral BID sodium chloride flush 10 mL Intravenous 2 times per day enoxaparin 40 mg Subcutaneous Daily Recent Labs 09/24/20 0843 09/26/20 0455 WBC 7.1 9.8 HGB 19.3* 12.6 PLT 215 508* Recent Labs 09/24/20 0843 09/26/20 0613 NA 133* 133* K 3.7 4.8 CL 99 97* CO2 27 24 BUN 29* 32* CREATININE 1.97* 1.13 GLUCOSE 110* 207* Recent Labs 09/24/20 0843 09/26/20 0613 AST 53* 64* ALT 113* 127* BILITOT 0.9 1.4* ALKPHOS 116 120 Troponin T: Recent Labs 09/24/20 1541 TROPONINI <0.012 Pro-BNP: No results for input(s): BNP in the last 72 hours. INR: No results for input(s): INR in the last 72 hours. Objective: Vitals: BP (!) 144/84 Pulse 102 Temp 95.8 F (35.4 C) (Temporal) Resp 20 Ht 5' 6" (1.676 m) Wt (!) 343 lb 1.6 oz (155.6 kg) SpO2 96% BMI 55.38 kg/m General appearance: alert and cooperative with exam Lungs: clear to auscultation bilaterally Heart: regular rate and rhythm, S1, S2 normal, no murmur, click, rub or gallop Abdomen: soft, non-tender; bowel sounds normal; no masses, no organomegaly Extremities: extremities normal, atraumatic, no cyanosis or edema Neurologic: No obvious focal neurologic deficits. Assessment and Plan: Ileus apparently worse after initial improvement DM poorly controlled, back on U500 insulin HTN Morbid obesity Esophagitis Short run of SVT, negative troponin Plan Continue with current treatment plan Advance Directive: Full Code DVT prophylaxis with enoxaparin 40 mg sub-Q daily. Discharge planning: SNF Active Problems: Ileus (HCC) Nausea and vomiting Esophagitis Resolved Problems: * No resolved hospital problems. * NABIL HILL DO * Fernanda Chappell, KAYLA, LD - 09/26/2020 1:38 PM EST Comprehensive Nutrition Assessment Type and Reason for Visit: Reassess Nutrition Recommendations/Plan: 1. Pt on Full liquids, 60g CHO/meal. 2. Continue Ensure HP once daily. Pt does not want frequency increased. Ensure High Protein provides 160 kcals, 16 g protein per serving. 3. Will also provide schwartz yogurt at HS to optimize nutrition. Discussed with patient. 4. Monitor intakes, wts, and labs. RD will follow. Nutrition Assessment: Pt remains on full liquids, not really consuming much. Pt still c/o nausea, +flatus, no BM yet. Pt states that he tries to drink Ensure when not feeling too sick. Wants to continue Ensure but does not want to increase frequency. Agreeable to yogurt at HS. Pt does not order meals consistently. Malnutrition Assessment: Malnutrition Status: Insufficient data Context: Acute Illness Findings of the 6 clinical characteristics of malnutrition: Energy Intake: 7 - 50% or less of estimated energy requirements for 5 or more days Weight Loss: No significant weight loss Body Fat Loss: No significant body fat loss Muscle Mass Loss: No significant muscle mass loss Fluid Accumulation: 7 - Moderate to Severe Extremities Quality Control Inspector Heading Strength: Not Performed Estimated Daily Nutrient Needs: Energy (kcal): 8112-9460; Weight Used for Energy Requirements: Adjusted(IBW) Protein (g): 53-64; Weight Used for Protein Requirements: Adjusted(IBW) Fluid (ml/day): per MD; Method Used for Fluid Requirements: Nutrition Related Findings: +2 non pitting LLE, right AKA, Na 133, Cl 97, BUN 32, GFR 55.1, POC glucose 308, 126, 173, Hgb A1c 09/18- pending, last resulted 9.9% (08/23/20), albumin 4.0 Wounds: (red LLE) Current Nutrition Therapies: DIET FULL LIQUID; Carb Control: 4 carb choices (60 gms)/meal Dietary Nutrition Supplements: Low Calorie High Protein Supplement Dietary Nutrition Supplements: Snack (see comment) Anthropometric Measures: Height: 5' 6" (167.6 cm) Current Body Weight: 343 lb (155.6 kg) Admission Body Weight: 360 lb (163.3 kg) Usual Body Weight: 340 lb (154.2 kg)(01/02/20) [place] Body Weight: 130 lbs; % [place] Body Weight 263.8 % BMI: 55.4 Adjusted Body Weight: 396.4; Amputation Adjusted BMI: 64 BMI Categories: Obese Class 3 (BMI 40.0 or greater) Nutrition Diagnosis: Inadequate oral intake related to altered GI function as evidenced by intake 0- 25%, NPO or clear liquid status due to medical condition, nausea, vomiting Nutrition Interventions: Food and/or Nutrient Delivery: Continue Current Diet, Continue Oral Nutrition Supplement, Start Oral Nutrition Supplement Nutrition Education/Counseling: No recommendation at this time Coordination of Nutrition Care: Continue to monitor while inpatient Goals: Pt will consume/tolerate >75% of meals/ONS without GI distress Nutrition Monitoring and Evaluation: Behavioral-Environmental Outcomes: None Identified Food/Nutrient Intake Outcomes: Food and Nutrient Intake, Supplement Intake Physical Signs/Symptoms Outcomes: GI Status, Nausea or Vomiting, Fluid Status or Edema, Meal Time Behavior, Nutrition Focused Physical Findings, Skin, Weight Discharge Planning: Too soon to determine Contact: *[id number] * Chris Muniz MD - 09/26/2020 11:24 AM EST GASTROENTEROLOGY PROGRESS NOTE Patient: Will Jacinto :1965 Primary Care Physician: Jared Guzman MD History: The patient is a 54 y.o. adult with persistent nausea but less otday/ Had orange juice x 2 , and trying yogart. Has nausea just thinking of eating. Early satiety. Some chronic headache which also makes him nauseous. No Abdominal pain, Has ileus But passing gas, last stool per patient was 2 days ago. Current Medications: Current Facility-Administered Medications Medication Dose Route Frequency Provider Last Rate Last Dose dilTIAZem (CARDIZEM CD) extended release capsule 180 mg 180 mg Oral Daily Priyank Rios MD 180 mg at 09/26/20 0932 metoclopramide (REGLAN) injection 10 mg 10 mg Intravenous Q6H Chris Muniz MD 10 mg at 09/26/20 0503 perflutren lipid microspheres (DEFINITY) injection 1.65 mg 1.5 mL Intravenous ONCE PRN Priyank Rios MD sodium chloride flush 0.9 % injection 10 mL 10 mL Intravenous PRN Priyank Rios MD insulin regular human (humuLIN R U-500 KWIKPEN) 500 UNIT/ML concentrated injection pen 140 Units 140 Units Subcutaneous QAM AC Asuncion Garibay DO 140 Units at 09/26/20 0945 insulin regular human (humuLIN R U-500 KWIKPEN) 500 UNIT/ML concentrated injection pen 110 Units 110 Units Subcutaneous Daily before lunch Asuncion Garibay DO 110 Units at 09/25/20 1400 insulin regular human (humuLIN R U-500 KWIKPEN) 500 UNIT/ML concentrated injection pen 135 Units 135 Units Subcutaneous Dinner Asuncion Garibay, DO 135 Units at 09/24/201827 promethazine (PHENERGAN) injection 25 mg 25 mg Intramuscular Q6H PRN Art Stapleton MD 25 mg at 09/25/202011 morphine (PF) injection 4 mg 4 mg Intravenous Q6H PRN Kylah David MD 4 mg at 09/22/2053 metoprolol (LOPRESSOR) injection 5 mg 5 mg Intravenous Q6H PRN Priyank Rios MD 5 mg at 09/21/201819 pantoprazole (PROTONIX) injection 40 mg 40 mg Intravenous BID Sergio Sibley, DO 40 mg at 09/26/20 0938 And sodium chloride (PF) 0.9 % injection 10 mL 10 mL Intravenous BID Sergio Sibley, DO 10 mL at 09/26/20 0938 lactobacillus (CULTURELLE) capsule 1 capsule 1 capsule Oral Daily Nabil M Esterle, DO 1 capsule at 09/26/20 0936 ARIPiprazole (ABILIFY) tablet 10 mg 10 mg Oral Daily Nabil M Esterle, DO 10 mg at 09/26/20 0935 aspirin chewable tablet 81 mg 81 mg Oral Daily Nabil M Esterle, DO 81 mg at 09/26/20 0930 benzonatate (TESSALON) capsule 200 mg 200 mg Oral TID PRN Nabil M Esterle, DO bisacodyl (DULCOLAX) suppository 10 mg 10 mg Rectal Daily PRN Nabil M Esterle, DO bisacodyl (DULCOLAX) EC tablet 5 mg 5 mg Oral Q12H PRN Nabil M Esterle, DO 5 mg at 09/24/201827 cyclobenzaprine (FLEXERIL) tablet 10 mg 10 mg Oral TID PRN Nabil M Esterle, DO ferrous sulfate (IRON 325) tablet 325 mg 325 mg Oral BID WC Nabil M Esterle, DO 325 mg at 09/26/20 0935 FLUoxetine (PROZAC) capsule 40 mg 40 mg Oral Daily Nabil M Esterle, DO 40 mg at 09/26/20 0930 furosemide (LASIX) tablet 80 mg 80 mg Oral Daily Nabil M Esterle, DO 80 mg at 09/26/20 0931 lisinopril (PRINIVIL;ZESTRIL) tablet 40 mg 40 mg Oral Daily Nabil M Esterle, DO 40 mg at 09/26/20 0932 megestrol (MEGACE) tablet 80 mg 80 mg Oral BID Nabil M Esterle, DO 80 mg at 09/26/20 0929 therapeutic multivitamin-minerals 1 tablet 1 tablet Oral Daily Nabil M Esterle, DO 1 tablet at 09/26/20 0933 atorvastatin (LIPITOR) tablet 20 mg 20 mg Oral Daily Nabil M Esterle, DO 20 mg at 09/26/20 0934 tiZANidine (ZANAFLEX) tablet 4 mg 4 mg Oral Q8H PRN Nabil M Esterle, DO 4 mg at 09/23/202112 traMADol (ULTRAM) tablet 50 mg 50 mg Oral Q12H PRN Nabil M Esterle, DO 50 mg at 09/19/202143 vitamin C (ASCORBIC ACID) tablet 500 mg 500 mg Oral BID Nabil M Esterle, DO 500 mg at 09/26/20 0930 sodium chloride flush 0.9 % injection 10 mL 10 mL Intravenous 2 times per day Nabil M Esterle, DO 10mL at 09/25/20 2004 sodium chloride flush 0.9 % injection 10 mL 10 mL Intravenous PRN Nabil M Esterle, DO acetaminophen (TYLENOL) tablet 650 mg 650 mg Oral Q6H PRN Nabil M Esterle, DO 650 mg at 09/21/20 0908 Or acetaminophen (TYLENOL) suppository 650 mg 650 mg Rectal Q6H PRN Nabil M Esterle, DO polyethylene glycol (GLYCOLAX) packet 17 g 17 g Oral Daily PRN Nabil M Esterle, DO 17 g at 09/24/20 1245 enoxaparin (LOVENOX) injection 40 mg 40 mg Subcutaneous Daily Nabil M Esterle, DO 40 mg at 09/26/20 0939 glucose (GLUTOSE) 40 % oral gel 15 g 15 g Oral PRN Nabil M Esterle, DO dextrose 50 % IV solution 12.5 g Intravenous PRN Nabil M Esterle, DO glucagon (rDNA) injection 1 mg 1 mg Intramuscular PRN Nabil M Esterle, DO dextrose 5 % solution 100 mL/hr Intravenous PRN Nabil M Esterle, DO Intake andOutput: No intake/output data recorded. No intake/output data recorded. PhysicalExam: BP (!) 155/75 Pulse 102 Temp 96.9 F (36.1 C) (Temporal) Resp 20 Ht 5' 6" (1.676 m) Wt (!)343 lb 1.6 oz (155.6 kg) SpO2 97% BMI 55.38 kg/m Physical Exam Obese, not iin distress Lungs clear Cor s1s2 Abdomen, large, non tender, soft positive BS CBC: Recent Labs 09/24/20 0843 09/26/20 0455 WBC 7.1 9.8 HGB 19.3* 12.6 HCT 59.6* 38.5 PLT 215 508* CMP: Recent Labs 09/24/20 0843 09/26/20 0613 NA 133* 133* K 3.7 4.8 CL 99 97* CO2 27 24 BUN 29* 32* CREATININE 1.97* 1.13 GLUCOSE 110* 207* CALCIUM 8.7 8.9 HEPATIC: Recent Labs 09/24/20 0843 09/26/20 0613 AST 53* 64* ALT 113* 127* BILITOT 0.9 1.4* ALKPHOS 116 120 INR: No results for input(s): INR in the last 72 hours. ASSESSMENT: 1. Aprt of nausea is functional likely ont top of gastroparesis PLAN: 1. Continue IV reglan q 6 hours. 2. Continue current diet. * Priyank Rios MD - 09/26/2020 11:03 AM EST Cardiology Progress Note Patient Name: Will Jacinto Patient Age: 54 y.o. DIAGNOSIS Patient Active Problem List Diagnosis Cellulitis Chronic osteomyelitis (HCC) Uncontrolled type 2 diabetes mellitus with complication (HCC) Type 2 diabetes mellitus with hyperglycemia, with long-term current use of insulin (HCC) Class 3 severe obesity due to excess calories with serious comorbidity and body mass index (BMI) of50.0 to 59.9 in adult (HCC) 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 (HCC) Cellulitis and abscess of lower extremity Hyperandrogenism Chronic acquired lymphedema Left leg cellulitis Class 3 severe obesity due to excess calories with serious comorbidity and body mass index (BMI) of60.0 to 69.9 in adult (HCC) Post-menopausal bleeding Hyperglycemia Diabetic foot infection (HCC) S/P AKA (above knee amputation) unilateral, right (HCC) Morbid obesity (HCC) Ileus (HCC) Nausea and vomiting Esophagitis LAB Lab Results Component Value Date NA 133 09/26/2020 K 4.8 09/26/2020 CL 97 09/26/2020 CO2 24 09/26/2020 BUN 32 09/26/2020 CREATININE 1.13 09/26/2020 GLUCOSE 207 09/26/2020 CALCIUM 8.9 09/26/2020 Lab Results Component Value Date WBC 9.8 09/26/2020 HGB 12.6 09/26/2020 HCT 38.5 09/26/2020 MCV 87.2 09/26/2020 PLT 508 (H) 09/26/2020 Lab Results Component Value Date TROPONINI <0.012 09/24/2020 Lab Results Component Value Date TSH 1.112 05/09/2019 Lab Results Component Value Date LABA1C 9.9 08/23/2020 Lab Results Component Value Date EAG 240 06/16/2019 Recent Labs 09/26/20 0613 ALKPHOS 120 ALT 127* AST 64* BILITOT 1.4* LABALBU 4.0 VITALS BP (!) 155/75 Pulse 102 Temp 96.9 F (36.1 C) (Temporal) Resp 20 Ht 5' 6" (1.676 m) Wt (!)343 lb 1.6 oz (155.6 kg) SpO2 97% BMI 55.38 kg/m I&O No intake/output data recorded. SUBJECTIVE: The patient had an episode of SVT and short run No arrythmia Overnight. OBJECTIVE: BP 111/61 Pulse 103 Temp 96.6 F (35.9 C) (Temporal) Resp 20 Ht 5' 6" (1.676 m) Wt (!) 343lb 1.6 oz (155.6 kg) SpO2 92% BMI 55.38 kg/m 10 systems reviewed as seen below Neck: Neck JVP 0, No carotid bruits, thyroid not enlarged Cardiovascular system: NSR, Short systolic murmur, no gallop Chest: normal breath sounds Abdomen: Abdomen soft/non-tender, no organomegaly, bowel sounds present Extremities: No edema, no varicosity Endocrine : Hypothyroidism No Diabites No GI system : GIB No Renal : CKD No KILNMAN : CVA/TIA No Musculoskeletal system : DJD No CARDIAC TESTING EKG: Nsr., pacs Echo: to Follow.poor Echo. No Images. Troponin: Stress Test: Cardiac Cath: IMPRESSION : Svt & Ns Vt.>> Stable PLAN : Add cardizem. Priyank Rios MD * Анна Villela MD - 09/25/2020 6:38 PM EST Department of Internal Medicine Division of Endocrinology, Diabetes, & Metabolism Endocrinology Progress Note Patient Name: Will Jacinto : 1965 AGE: 54 y.o. Room/Bed: 260/2601 Admission Date: 09/17/2020 7:46 PM Consult Date: 09/18/20 Visit Date: 09/25/2020 Reason for Endocrine Consult: DM mgmt Provider/Team Requesting Consult: Joann PCP: Jared Guzman MD Outpt District Sales Coordinator: yes, JEROME Lee/Kedar ASSESSMENT: T2DM uncontrolled with hyperglycemia Insulin resistance Morbid obesity Body mass index is 55.38 kg/m . Right AKA Ileus/gastroparesis/esophagitis Fatty liver PLAN: - BG controlled today but is not planning to eat dinner due to nausea - will continue U500 pen at 140-110-135 units TID before meals - can hold dinner dose if not eating - call Endo if NPO for new insulin orders - monitor blood glucose QAC and HS - carb control diet - counseled patient regarding DM management - discussed insulin regimen - management of hypoglycemia per protocol Inpt GMF glucose goal 150. Inpt ICU glucose goal 150-180. DIET FULL LIQUID; Carb Control: 4 carb choices (60 gms)/meal Dietary Nutrition Supplements: Low Calorie High Protein Supplement ANTICIPATED ENDOCRINE HOME GOING RECOMMENDATIONS: Optimized for Discharge from Endocrine standpoint: No Home Going Endocrine Rx Recommendations-- Current hosp [id number] insulin doses Outpt Follow Up-- As scheduled with Dr. Lee SUBJECTIVE/HPI: CHIEF COMPLAINT: Abdominal Pain Pt being followed for: DM Type of DM: 2 Onset of DM: unclear Home DM Medication Regimen: U500 pen 280/280/280 DM control (last A1c/glucose data): Lab Results Component Value Date LABA1C 9.9 08/23/2020 Lab Results Component Value Date EAG 240 06/16/2019 He is still having nausea Pt reports that he has not had anything to eat today. But according to Domitila (RN), he had yogurts and Ensure today. GI advised to DC pop and pt was not happy. He says he had an episode of vomiting yesterday Had small BM Denies CP/SOB BG 121-173-124 today ROS negative except for those mentioned in HPI. OBJECTIVE: Vitals: 09/25/20 0445 09/25/20 0749 09/25/20 1118 09/25/20 1530 BP: 130/80 111/61 102/69 (!) 156/85 Pulse: 110 103 104 105 Resp: Temp: 97 F (36.1 C) 96.6 F (35.9 C) 96.6 F (35.9 C) 97 F (36.1 C) TempSrc: Temporal Temporal Temporal Temporal SpO2: 96% 92% 96% 97% Weight: Height: Physical Exam Vitals signs reviewed. Constitutional: General: He is not in acute distress. Appearance: He is well-developed. He is obese. Eyes: General: No scleral icterus. Conjunctiva/sclera: Conjunctivae normal. Neck: Musculoskeletal: Neck supple. Thyroid: No thyromegaly. Cardiovascular: Rate and Rhythm: Normal rate and regular rhythm. Pulses: Normal pulses. Heart sounds: Normal heart sounds. No murmur. Pulmonary: Effort: Pulmonary effort is normal. No respiratory distress. Breath sounds: No wheezing, rhonchi or rales. Abdominal: General: There is distension. Palpations: Abdomen is soft. There is no hepatomegaly, splenomegaly or mass. Tenderness: There is no abdominal tenderness. There is no rebound. Musculoskeletal: General: Swelling and deformity present. No tenderness. Comments: R AKA Lymphadenopathy: Cervical: No cervical adenopathy. Skin: General: Skin is warm and dry. Findings: Erythema and rash present. Comments: No open skin lesions Neurological: General: No focal deficit present. Mental Status: He is alert. Motor: No tremor. Psychiatric: Mood and Affect: Mood normal. Affect is flat. Speech: Speech normal. Behavior: Behavior is slowed. Behavior is cooperative. 24 hour intake/output: No intake or output data in the 24 hours ending 09/25/201837 Diet: DIET FULL LIQUID; Carb Control: 4 carb choices (60 gms)/meal Dietary Nutrition Supplements: Low Calorie High Protein Supplement Medications (as per EMR): HomeMeds: Prior to Admission medications Medication Sig Start Date End Date Taking? Authorizing Provider cyclobenzaprine (FLEXERIL) 10 MG tablet Take 10 mg by mouth 3 times daily as needed for Muscle spasms Yes Historical Provider, tiZANidine (ZANAFLEX) 4 MG tablet Take 4 mg by mouth every 8 hours as needed Yes Historical Provider, ondansetron (ZOFRAN) 4 MG tablet Take 4 mg by mouth every 8 hours as needed for Nausea or Vomiting Yes Historical Provider, insulin regular human (HUMULIN R U-500 KWIKPEN) 500 UNIT/ML SOPN concentrated injection pen 280 units TID AC meals 08/28/20 Carito Thacker, PERSONAL CARE SERVICE PROVIDER - [employer] acetaminophen (TYLENOL) 325 MG tablet Take 650 mg by mouth every 6 hours as needed for Pain Historical Provider, SALINE NASAL SPRAY NA by Nasal route as needed Historical Provider, vitamin C (ASCORBIC ACID) 500 MG tablet Take 500 mg by mouth 2 times daily Historical Provider, megestrol (MEGACE) 40 MG tablet 2 po bid Patient taking differently: Take 80 mg by mouth 2 times daily 07/26/19 Justin Walsh MD ferrous sulfate 325 (65 Fe) MG tablet Take 1 tablet by mouth daily (with breakfast) Patient taking differently: Take 325 mg by mouth 2 times daily 05/21/19 Nabil Hill DO miconazole (MICOTIN) 2 % powder Apply topically 2 times daily. 01/17/19 Dom Beltran MD mineral oil-hydrophilic petrolatum (AQUAPHOR) ointment Apply topically as needed. 01/17/19 Dom Beltran MD FLUoxetine (PROZAC) 20 MG capsule Take 40 mg by mouth daily Historical Provider, ketoconazole (NIZORAL) 2 % shampoo Apply topically daily as needed for Itching Apply topically daily as needed. Historical Provider, Multiple Vitamins-Minerals (THERAPEUTIC MULTIVITAMIN-MINERALS) tablet Take 1 tablet by mouth daily Historical Provider, Magnesium Hydroxide (MILK OF MAGNESIA CONCENTRATE PO) Take 30 mLs by mouth as needed (constipation)Historical Provider, bisacodyl (DULCOLAX) [address] 10 mg rectally daily as needed for Constipation Historical Provider, bisacodyl (DULCOLAX) 5 MG EC tablet Take 5 mg by mouth every 12 hours as needed for Constipation Historical Provider, Biotin 10 MG tablet Take 10 mg by mouth daily Historical Provider, benzonatate (TESSALON) 200 MG capsule Take 200 mg by mouth 3 times daily as needed for Cough Historical Provider, ARIPiprazole (ABILIFY) 10 MG tablet Take 10 mg by mouth daily Historical Provider, Acidophilus Lactobacillus CAPS Take 1 tablet by mouth daily Historical Provider, aspirin 81 MG tablet Take 81 mg by mouth daily Historical Provider, simvastatin (ZOCOR) 20 MG tablet Take 20 mg by mouth nightly Historical Provider, lisinopril (PRINIVIL;ZESTRIL) 40 MG tablet Take 40 mg by mouth daily Historical Provider, furosemide (LASIX) 80 MG tablet Take 80 mg by mouth daily Historical Provider, Scheduled Meds: dilTIAZem 180 mg Oral Daily metoclopramide 10 mg Intravenous Q6H insulin regular human 140 Units Subcutaneous QAM AC insulin regular human 110 Units Subcutaneous Daily before lunch insulin regular human 135 Units Subcutaneous Dinner pantoprazole 40 mg Intravenous BID And sodium chloride (PF) 10 mL Intravenous BID lactobacillus 1 capsule Oral Daily ARIPiprazole 10 mg Oral Daily aspirin 81 mg Oral Daily ferrous sulfate 325 mg Oral BID WC FLUoxetine 40 mg Oral Daily furosemide 80 mg Oral Daily lisinopril 40 mg Oral Daily megestrol 80 mg Oral BID therapeutic multivitamin-minerals 1 tablet Oral Daily atorvastatin 20 mg Oral Daily vitamin C 500 mg Oral BID sodium chloride flush 10 mL Intravenous 2 times per day enoxaparin 40 mg Subcutaneous Daily Continuous Infusions: dextrose PRN Meds:perflutren lipid microspheres, sodium chloride flush, promethazine, morphine (PF), metoprolol, benzonatate, bisacodyl, bisacodyl, cyclobenzaprine, tiZANidine, traMADol, sodium chloride flush, acetaminophen OR acetaminophen, polyethylene glycol, glucose, dextrose, glucagon (rDNA), dextrose Diagnostic Workup: I reviewed pertinent Laboratory results, Radiographic results, and Other Clinical Notes at the timeof today's encounter. BMP: Recent Labs 09/23/20 0120 09/24/20 0843 NA 127* 133* K 3.9 3.7 CL 93* 99 CO2 24 27 BUN 26* 29* CREATININE 1.05 1.97* GLUCOSE 242* 110* Glucose: Recent Labs 09/23/20 2006 09/24/20 0801 09/24/20 1055 09/24/20 1617 09/24/20 2127 09/25/20 0748 09/25/20 1117 09/25/20 1718 POCGLU 171* 119* 237* 187* 119* 121* 173* 124* HgbA1C: No results for input(s): LABA1C in the last 72 hours. Hepatic: Recent Labs 09/24/20 0843 ALKPHOS 116 ALT 113* AST 53* PROT 6.7 BILITOT 0.9 LABALBU 3.6 Lipids: No results for input(s): CHOL, TRIG, HDL, LDLCALC in the last 72 hours. 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) Bipolar 1 disorder (HCC) Blood circulation, collateral Cellulitis chronic L lower leg Depression Diabetes mellitus (HCC) Type II, on insulin Disease of blood and blood forming organ Endometrial hyperplasia Hx of blood clots RLE prior to amputation Hyperlipidemia Hypertension Lymphedema 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 No pertinent family history. Social History: Social History Tobacco Use Smoking status: Never Smoker Smokeless tobacco: Never Used Substance Use Topics Alcohol use: No Drug use: Never I spent 25 minutes with the pt which involved more than 51% of the time in coordination of care, medical evaluation, review of records, and/or counseling of the pt regarding his/her condition/diseasestate/prognosis on the date of this note. * Kylah David MD - 09/25/2020 1:11 PM EST Progress Note 09/25/2020 1:11 PM Subjective: Admit Date: 09/17/2020 PCP: Jared Guzman MD Interval History: Patient still has some nausea and states that he passed a small amount of loose stool last night. KUB's after showing apparent resolution of ileus over the weekend have been describing ileus again the last two images.Did not get a KUB today. GI told him to avoid carbonated beverages and straws. DIET FULL LIQUID; Carb Control: 4 carb choices (60 gms)/meal Dietary Nutrition Supplements: Low Calorie High Protein Supplement No intake or output data in the 24 hours ending 09/25/20 1311 Medications: dextrose dilTIAZem 180 mg Oral Daily metoclopramide 10 mg Intravenous Q6H insulin regular human 140 Units Subcutaneous QAM AC insulin regular human 110 Units Subcutaneous Daily before lunch insulin regular human 135 Units Subcutaneous Dinner pantoprazole 40 mg Intravenous BID And sodium chloride (PF) 10 mL Intravenous BID lactobacillus 1 capsule Oral Daily ARIPiprazole 10 mg Oral Daily aspirin 81 mg Oral Daily ferrous sulfate 325 mg Oral BID WC FLUoxetine 40 mg Oral Daily furosemide 80 mg Oral Daily lisinopril 40 mg Oral Daily megestrol 80 mg Oral BID therapeutic multivitamin-minerals 1 tablet Oral Daily atorvastatin 20 mg Oral Daily vitamin C 500 mg Oral BID sodium chloride flush 10 mL Intravenous 2 times per day enoxaparin 40 mg Subcutaneous Daily Recent Labs 09/23/20 0120 09/24/20 0843 WBC 12.1* 7.1 HGB 11.8 19.3* PLT 454* 215 Recent Labs 09/23/20 0120 09/24/20 0843 NA 127* 133* K 3.9 3.7 CL 93* 99 CO2 24 27 BUN 26* 29* CREATININE 1.05 1.97* GLUCOSE 242* 110* Recent Labs 09/23/20 0120 09/24/20 0843 AST 42 53* ALT 126* 113* BILITOT 0.9 0.9 ALKPHOS 150* 116 Objective: Vitals: BP 102/69 Pulse 104 Temp 96.6 F (35.9 C) (Temporal) Resp 20 Ht 5' 6" (1.676 m) Wt(!) 343 lb 1.6 oz (155.6 kg) SpO2 96% BMI 55.38 kg/m General appearance: alert and cooperative with exam Lungs: clear to auscultation bilaterally Heart: regular rate and rhythm, S1, S2 normal, no murmur, click, rub or gallop Abdomen: has no BS but is nontender Extremities: extremities normal, atraumatic, no cyanosis or edema Neurologic: No obvious focal neurologic deficits. Assessment and Plan: Ileus apparently worse after initial improvement DM poorly controlled, back on U500 insulin HTN Morbid obesity Esophagitis Short run of SVT, negative troponin Advance Directive: Full Code DVT prophylaxis Lovenox 40 daily Discharge planning: snf Active Problems: Ileus (HCC) Nausea and vomiting Esophagitis Resolved Problems: * No resolved hospital problems. * Kylah David MD * Chris Muniz MD - 09/25/2020 11:16 AM EST GASTROENTEROLOGY PROGRESS NOTE Patient: Will Jacinto :1965 Primary Care Physician: Jared Guzman MD History: The patient is a 54 y.o. adult with nausea. Peptic duodenitis, probable gastroparesis. On po reglan. Still has nausea, taking mainly full liquids. Currently taking carbonated drinks Current Medications: Current Facility-Administered Medications Medication Dose Route Frequency Provider Last Rate Last Dose dilTIAZem (CARDIZEM CD) extended release capsule 180 mg 180 mg Oral Daily Priyank Rios MD perflutren lipid microspheres (DEFINITY) injection 1.65 mg 1.5 mL Intravenous ONCE PRN Priyank Rios MD sodium chloride flush 0.9 % injection 10 mL 10 mL Intravenous PRN Priyank Rios MD insulin regular human (humuLIN R U-500 KWIKPEN) 500 UNIT/ML concentrated injection pen 140 Units 140 Units Subcutaneous QAM AC Asuncion Garibay, DO 140 Units at 09/25/20 0906 insulin regular human (humuLIN R U-500 KWIKPEN) 500 UNIT/ML concentrated injection pen 110 Units 110 Units Subcutaneous Daily before lunch Asuncion Garibay, DO 110 Units at 09/24/20 1226 insulin regular human (humuLIN R U-500 KWIKPEN) 500 UNIT/ML concentrated injection pen 135 Units 135 Units Subcutaneous Dinner Asuncion Garibay, DO 135 Units at 09/24/20 1828 metoclopramide (REGLAN) tablet 10 mg 10 mg Oral TID AC Art Stapleton MD 10 mg at 09/25/200854 promethazine (PHENERGAN) injection 25 mg 25 mg Intramuscular Q6H PRN Art Stapleton MD 25 mg at 09/24/202002 morphine (PF) injection 4 mg 4 mg Intravenous Q6H PRN Kylah David MD 4 mg at 09/22/20 005 metoprolol (LOPRESSOR) injection 5 mg 5 mg Intravenous Q6H PRN Priyank Rios MD 5 mg at 09/21/20 182 pantoprazole (PROTONIX) injection 40 mg 40 mg Intravenous BID Sergio Sibley, DO 40 mg at 09/25/20 0857 And sodium chloride (PF) 0.9 % injection 10 mL 10 mL Intravenous BID Sergio Sibley, DO 10 mL at 09/25/20 0856 lactobacillus (CULTURELLE) capsule 1 capsule 1 capsule Oral Daily Nabil M Esterle, DO 1 capsule at 09/25/20 0857 ARIPiprazole (ABILIFY) tablet 10 mg 10 mg Oral Daily Nabil M Esterle, DO 10 mg at 09/25/20 0853 aspirin chewable tablet 81 mg 81 mg Oral Daily Nabil M Esterle, DO 81 mg at 09/25/20 0851 benzonatate (TESSALON) capsule 200 mg 200 mg Oral TID PRN Nabil M Esterle, DO bisacodyl (DULCOLAX) suppository 10 mg 10 mg Rectal Daily PRN Nabil M Esterle, DO bisacodyl (DULCOLAX) EC tablet 5 mg 5 mg Oral Q12H PRN Nabil M Esterle, DO 5 mg at 09/24/20 1828 cyclobenzaprine (FLEXERIL) tablet 10 mg 10 mg Oral TID PRN Nabil M Esterle, DO ferrous sulfate (IRON 325) tablet 325 mg 325 mg Oral BID WC Nabil M Esterle, DO 325 mg at 09/25/20 0853 FLUoxetine (PROZAC) capsule 40 mg 40 mg Oral Daily Nabil M Esterle, DO 40 mg at 09/25/20 0853 furosemide (LASIX) tablet 80 mg 80 mg Oral Daily Nabil M Esterle, DO 80 mg at 09/25/20 0853 lisinopril (PRINIVIL;ZESTRIL) tablet 40 mg 40 mg Oral Daily Nabil M Esterle, DO 40 mg at 09/25/20 0854 megestrol (MEGACE) tablet 80 mg 80 mg Oral BID Nabil M Esterle, DO 80 mg at 09/25/20 0852 therapeutic multivitamin-minerals 1 tablet 1 tablet Oral Daily Nabil M Esterle, DO 1 tablet at 09/25/20 0853 atorvastatin (LIPITOR) tablet 20 mg 20 mg Oral Daily Nabil M Esterle, DO 20 mg at 09/25/20 0851 tiZANidine (ZANAFLEX) tablet 4 mg 4 mg Oral Q8H PRN Nabil M Esterle, DO 4 mg at 09/23/20 2113 traMADol (ULTRAM) tablet 50 mg 50 mg Oral Q12H PRN Nabil M Esterle, DO 50 mg at 09/19/20 2144 vitamin C (ASCORBIC ACID) tablet 500 mg 500 mg Oral BID Nabil M Esterle, DO 500 mg at 09/25/20 0855 sodium chloride flush 0.9 % injection 10 mL 10 mL Intravenous 2 times per day Nabil M Esterle, DO 10mL at 09/25/20 0856 sodium chloride flush 0.9 % injection 10 mL 10 mL Intravenous PRN Nabil M Esterle, DO acetaminophen (TYLENOL) tablet 650 mg 650 mg Oral Q6H PRN Nabil M Esterle, DO 650 mg at 09/21/20 0908 Or acetaminophen (TYLENOL) suppository 650 mg 650 mg Rectal Q6H PRN Nabil M Esterle, DO polyethylene glycol (GLYCOLAX) packet 17 g 17 g Oral Daily PRN Nabil M Esterle, DO 17 g at 09/24/20 1245 enoxaparin (LOVENOX) injection 40 mg 40 mg Subcutaneous Daily Nabil M Esterle, DO 40 mg at 09/25/20 0856 glucose (GLUTOSE) 40 % oral gel 15 g 15 g Oral PRN Nabil M Esterle, DO dextrose 50 % IV solution 12.5 g Intravenous PRN Nabil M Esterle, DO glucagon (rDNA) injection 1 mg 1 mg Intramuscular PRN Nabil M Esterle, DO dextrose 5 % solution 100 mL/hr Intravenous PRN Nabil M Esterle, DO Intake andOutput: I/O last 3 completed shifts: In: 730 [P.O.:720; I.V.:10] Out: - No intake/output data recorded. PhysicalExam: BP 111/61 Pulse 103 Temp 96.6 F (35.9 C) (Temporal) Resp 20 Ht 5' 6" (1.676 m) Wt (!) 343lb 1.6 oz (155.6 kg) SpO2 92% BMI 55.38 kg/m Physical Exam Obese, not in distress Lungs clear Cor s1s2' Obese, tympanitic, non tender CBC: Recent Labs 09/23/20 0120 09/24/20 0843 WBC 12.1* 7.1 HGB 11.8 19.3* HCT 35.4 59.6* PLT 454* 215 CMP: Recent Labs 09/23/20 0120 09/24/20 0843 NA 127* 133* K 3.9 3.7 CL 93* 99 CO2 24 27 BUN 26* 29* CREATININE 1.05 1.97* GLUCOSE 242* 110* CALCIUM 8.6 8.7 HEPATIC: Recent Labs 09/23/20 0120 09/24/20 0843 AST 42 53* ALT 126* 113* BILITOT 0.9 0.9 ALKPHOS 150* 116 INR: No results for input(s): INR in the last 72 hours. ASSESSMENT: 1. Ileus, gastroparesis 2. duodenitis PLAN: 1. Switch reglan to IV for now 2. Continue protonix 3. Avoid carbonated drinks and drinking with straw * Priyank Rios MD - 09/25/2020 10:36 AM EST Cardiology Progress Note Patient Name: Will Jacinto Patient Age: 54 y.o. DIAGNOSIS Patient Active Problem List Diagnosis Cellulitis Chronic osteomyelitis (HCC) Uncontrolled type 2 diabetes mellitus with complication (HCC) Type 2 diabetes mellitus with hyperglycemia, with long-term current use of insulin (HCC) Class 3 severe obesity due to excess calories with serious comorbidity and body mass index (BMI) of50.0 to 59.9 in adult (HCC) 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 (HCC) Cellulitis and abscess of lower extremity Hyperandrogenism Chronic acquired lymphedema Left leg cellulitis Class 3 severe obesity due to excess calories with serious comorbidity and body mass index (BMI) of60.0 to 69.9 in adult (HCC) Post-menopausal bleeding Hyperglycemia Diabetic foot infection (HCC) S/P AKA (above knee amputation) unilateral, right (HCC) Morbid obesity (HCC) Ileus (HCC) Nausea and vomiting Esophagitis LAB Lab Results Component Value Date NA 133 09/24/2020 K 3.7 09/24/2020 CL 99 09/24/2020 CO2 27 09/24/2020 BUN 29 09/24/2020 CREATININE 1.97 09/24/2020 GLUCOSE 110 09/24/2020 CALCIUM 8.7 09/24/2020 Lab Results Component Value Date WBC 7.1 09/24/2020 HGB 19.3 (H) 09/24/2020 HCT 59.6 (H) 09/24/2020 MCV 87.2 09/24/2020 PLT 215 09/24/2020 Lab Results Component Value Date TROPONINI <0.012 09/24/2020 Lab Results Component Value Date TSH 1.112 05/09/2019 Lab Results Component Value Date LABA1C 9.9 08/23/2020 Lab Results Component Value Date EAG 240 06/16/2019 Recent Labs 09/24/20 0843 ALKPHOS 116 ALT 113* AST 53* BILITOT 0.9 LABALBU 3.6 VITALS BP 111/61 Pulse 103 Temp 96.6 F (35.9 C) (Temporal) Resp 20 Ht 5' 6" (1.676 m) Wt (!) 343lb 1.6 oz (155.6 kg) SpO2 92% BMI 55.38 kg/m I&O No intake/output data recorded. SUBJECTIVE: The patient had an episode of SVT and short run No arrythmia Overnight. OBJECTIVE: BP 111/61 Pulse 103 Temp 96.6 F (35.9 C) (Temporal) Resp 20 Ht 5' 6" (1.676 m) Wt (!) 343lb 1.6 oz (155.6 kg) SpO2 92% BMI 55.38 kg/m 10 systems reviewed as seen below Neck: Neck JVP 0, No carotid bruits, thyroid not enlarged Cardiovascular system: NSR, Short systolic murmur, no gallop Chest: normal breath sounds Abdomen: Abdomen soft/non-tender, no organomegaly, bowel sounds present Extremities: No edema, no varicosity Endocrine : Hypothyroidism No Diabites No GI system : GIB No Renal : CKD No KILNMAN : CVA/TIA No Musculoskeletal system : DJD No CARDIAC TESTING EKG: Nsr., pacs Echo: to Follow. Troponin: Stress Test: Cardiac Cath: IMPRESSION : Svt & Ns Vt.>> Stable PLAN : Add cardizem. Priyank Rios MD * Анна Villela MD - 09/24/2020 6:16 PM EST Department of Internal Medicine Division of Endocrinology, Diabetes, & Metabolism Endocrinology Progress Note Patient Name: Will Jacinto : 1965 AGE: 54 y.o. Room/Bed: 260/2601 Admission Date: 09/17/2020 7:46 PM Consult Date: 09/18/20 Visit Date: 09/24/2020 Reason for Endocrine Consult: DM mgmt Provider/Team Requesting Consult: Joann PCP: Jared Guzman MD Outpt District Sales Coordinator: yes, JEROME Lee/Kedar ASSESSMENT: T2DM uncontrolled with hyperglycemia Insulin resistance Morbid obesity Body mass index is 55.38 kg/m . Right AKA Ileus/gastroparesis/esophagitis Fatty liver PLAN: - BG improved - will continue U500 pen at 140-110-135 units TID before meals - call Endo if NPO for new insulin orders - monitor blood glucose QAC and HS - carb control diet - counseled patient regarding DM management - discussed insulin regimen - management of hypoglycemia per protocol Inpt GMF glucose goal 150. Inpt ICU glucose goal 150-180. DIET FULL LIQUID; Carb Control: 4 carb choices (60 gms)/meal Dietary Nutrition Supplements: Low Calorie High Protein Supplement ANTICIPATED ENDOCRINE HOME GOING RECOMMENDATIONS: Optimized for Discharge from Endocrine standpoint: No Home Going Endocrine Rx Recommendations-- Current hosp [id number] insulin doses Outpt Follow Up-- As scheduled with Dr. Lee SUBJECTIVE/HPI: CHIEF COMPLAINT: Abdominal Pain Pt being followed for: DM Type of DM: 2 Onset of DM: unclear Home DM Medication Regimen: U500 pen 280/280/280 DM control (last A1c/glucose data): Lab Results Component Value Date LABA1C 9.9 08/23/2020 Lab Results Component Value Date EAG 240 06/16/2019 He is still having nausea Able to tolerate Ensure, not much of other food Last episode of vomiting was yesterday Constipation - last BM was 1 week ago Denies CP/SOB BG 110-237-187 today ROS negative except for those mentioned in HPI. OBJECTIVE: Vitals: 09/24/20 0802 09/24/20 1013 09/24/20 1245 09/24/20 1506 BP: (!) 102/49 (!) 102/54 (!) 145/84 Pulse: 94 99 97 Resp: 16 16 16 Temp: 98.2 F (36.8 C) 98.4 F (36.9 C) 97.7 F (36.5 C) 98.6 F (37 C) TempSrc: Temporal Temporal Temporal SpO2: 94% 94% 95% Weight: Height: Physical Exam Vitals signs reviewed. Constitutional: General: He is not in acute distress. Appearance: He is well-developed. He is obese. Eyes: General: No scleral icterus. Conjunctiva/sclera: Conjunctivae normal. Neck: Musculoskeletal: Neck supple. Thyroid: No thyromegaly. Cardiovascular: Rate and Rhythm: Normal rate and regular rhythm. Pulses: Normal pulses. Heart sounds: Normal heart sounds. No murmur. Pulmonary: Effort: Pulmonary effort is normal. No respiratory distress. Breath sounds: No wheezing, rhonchi or rales. Abdominal: General: There is distension. Palpations: Abdomen is soft. There is no hepatomegaly, splenomegaly or mass. Tenderness: There is no abdominal tenderness. There is no guarding or rebound. Musculoskeletal: General: Swelling and deformity present. No tenderness. Comments: R AKA Lymphadenopathy: Cervical: No cervical adenopathy. Skin: General: Skin is warm and dry. Findings: Erythema and rash present. Comments: No open skin lesions Neurological: General: No focal deficit present. Mental Status: He is alert. Motor: No tremor. Psychiatric: Mood and Affect: Mood normal. Affect is flat. Speech: Speech normal. Behavior: Behavior normal. Behavior is cooperative. 24 hour intake/output: Intake/Output Summary (Last 24 hours) at 09/24/2020 1816 Last data filed at 09/24/2020 1245 Gross per 24 hour Intake 1330 ml Output Net 1330 ml Diet: DIET FULL LIQUID; Carb Control: 4 carb choices (60 gms)/meal Dietary Nutrition Supplements: Low Calorie High Protein Supplement Medications (as per EMR): HomeMeds: Prior to Admission medications Medication Sig Start Date End Date Taking? Authorizing Provider cyclobenzaprine (FLEXERIL) 10 MG tablet Take 10 mg by mouth 3 times daily as needed for Muscle spasms Yes Historical Provider, tiZANidine (ZANAFLEX) 4 MG tablet Take 4 mg by mouth every 8 hours as needed Yes Historical Provider, ondansetron (ZOFRAN) 4 MG tablet Take 4 mg by mouth every 8 hours as needed for Nausea or Vomiting Yes Historical Provider, insulin regular human (HUMULIN R U-500 KWIKPEN) 500 UNIT/ML SOPN concentrated injection pen 280 units TID AC meals 08/28/20 Carito Thacker, PERSONAL CARE SERVICE PROVIDER - [employer] acetaminophen (TYLENOL) 325 MG tablet Take 650 mg by mouth every 6 hours as needed for Pain Historical Provider, SALINE NASAL SPRAY NA by Nasal route as needed Historical Provider, vitamin C (ASCORBIC ACID) 500 MG tablet Take 500 mg by mouth 2 times daily Historical Provider, megestrol (MEGACE) 40 MG tablet 2 po bid Patient taking differently: Take 80 mg by mouth 2 times daily 07/26/19 Justin Walsh MD ferrous sulfate 325 (65 Fe) MG tablet Take 1 tablet by mouth daily (with breakfast) Patient taking differently: Take 325 mg by mouth 2 times daily 05/21/19 Nabil Hill DO miconazole (MICOTIN) 2 % powder Apply topically 2 times daily. 01/17/19 Dom Beltran MD mineral oil-hydrophilic petrolatum (AQUAPHOR) ointment Apply topically as needed. 01/17/19 Dom Beltran MD FLUoxetine (PROZAC) 20 MG capsule Take 40 mg by mouth daily Historical Provider, ketoconazole (NIZORAL) 2 % shampoo Apply topically daily as needed for Itching Apply topically daily as needed. Historical Provider, Multiple Vitamins-Minerals (THERAPEUTIC MULTIVITAMIN-MINERALS) tablet Take 1 tablet by mouth daily Historical Provider, Magnesium Hydroxide (MILK OF MAGNESIA CONCENTRATE PO) Take 30 mLs by mouth as needed (constipation)Historical Provider, bisacodyl (DULCOLAX) [address] 10 mg rectally daily as needed for Constipation Historical Provider, bisacodyl (DULCOLAX) 5 MG EC tablet Take 5 mg by mouth every 12 hours as needed for Constipation Historical Provider, Biotin 10 MG tablet Take 10 mg by mouth daily Historical Provider, benzonatate (TESSALON) 200 MG capsule Take 200 mg by mouth 3 times daily as needed for Cough Historical Provider, ARIPiprazole (ABILIFY) 10 MG tablet Take 10 mg by mouth daily Historical Provider, Acidophilus Lactobacillus CAPS Take 1 tablet by mouth daily Historical Provider, aspirin 81 MG tablet Take 81 mg by mouth daily Historical Provider, simvastatin (ZOCOR) 20 MG tablet Take 20 mg by mouth nightly Historical Provider, lisinopril (PRINIVIL;ZESTRIL) 40 MG tablet Take 40 mg by mouth daily Historical Provider, furosemide (LASIX) 80 MG tablet Take 80 mg by mouth daily Historical Provider, Scheduled Meds: insulin regular human 140 Units Subcutaneous QAM AC insulin regular human 110 Units Subcutaneous Daily before lunch insulin regular human 135 Units Subcutaneous Dinner metoclopramide 10 mg Oral TID AC pantoprazole 40 mg Intravenous BID And sodium chloride (PF) 10 mL Intravenous BID lactobacillus 1 capsule Oral Daily ARIPiprazole 10 mg Oral Daily aspirin 81 mg Oral Daily ferrous sulfate 325 mg Oral BID WC FLUoxetine 40 mg Oral Daily furosemide 80 mg Oral Daily lisinopril 40 mg Oral Daily megestrol 80 mg Oral BID therapeutic multivitamin-minerals 1 tablet Oral Daily atorvastatin 20 mg Oral Daily vitamin C 500 mg Oral BID sodium chloride flush 10 mL Intravenous 2 times per day enoxaparin 40 mg Subcutaneous Daily Continuous Infusions: dextrose PRN Meds:perflutren lipid microspheres, sodium chloride flush, diphenhydrAMINE, EPINEPHrine, promethazine, morphine (PF), metoprolol, benzonatate, bisacodyl, bisacodyl, cyclobenzaprine, tiZANidine, traMADol, sodium chloride flush, acetaminophen OR acetaminophen, polyethylene glycol, glucose, dextrose, glucagon (rDNA), dextrose Diagnostic Workup: I reviewed pertinent Laboratory results, Radiographic results, and Other Clinical Notes at the timeof today's encounter. BMP: Recent Labs 09/22/20 0602 09/23/20 0120 09/24/20 0843 NA 129* 127* 133* K 4.1 3.9 3.7 CL 94* 93* 99 CO2 29 24 27 BUN 21* 26* 29* CREATININE 0.88 1.05 1.97* GLUCOSE 269* 242* 110* Glucose: Recent Labs 09/23/20 0229 09/23/20 0737 09/23/20 1124 09/23/20 1643 09/23/20 2006 09/24/20 0801 09/24/20 1055 09/24/20 1617 POCGLU 231* 348* 401* 278* 171* 119* 237* 187* HgbA1C: No results for input(s): LABA1C in the last 72 hours. Hepatic: Recent Labs 09/24/20 0843 ALKPHOS 116 ALT 113* AST 53* PROT 6.7 BILITOT 0.9 LABALBU 3.6 Lipids: No results for input(s): CHOL, TRIG, HDL, LDLCALC in the last 72 hours. 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) Bipolar 1 disorder (HCC) Blood circulation, collateral Cellulitis chronic L lower leg Depression Diabetes mellitus (HCC) Type II, on insulin Disease of blood and blood forming organ Endometrial hyperplasia Hx of blood clots RLE prior to amputation Hyperlipidemia Hypertension Lymphedema 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 No pertinent family history. Social History: Social History Tobacco Use Smoking status: Never Smoker Smokeless tobacco: Never Used Substance Use Topics Alcohol use: No Drug use: Never I spent 25 minutes with the pt which involved more than 51% of the time in coordination of care, medical evaluation, review of records, and/or counseling of the pt regarding his/her condition/diseasestate/prognosis on the date of this note. * Gayle Hanna MD - 09/24/2020 3:56 PM EST [facility] Attending GI Progress Note SUBJECTIVE: Patient described mild improvement in nausea with reglan, pcp note suggests otherwise. Medications Current Facility-Administered Medications Medication Dose Route Frequency Provider Last Rate Last Dose perflutren lipid microspheres (DEFINITY) injection 1.65 mg 1.5 mL Intravenous ONCE PRN Priyank Rios MD sodium chloride flush 0.9 % injection 10 mL 10 mL Intravenous PRN Priyank Rios MD diphenhydrAMINE (BENADRYL) injection 25 mg 25 mg Intramuscular Once PRN Priyank Rios MD EPINEPHrine PF 1 MG/ML injection 0.3 mg 0.3 mg Intramuscular Once PRN Priyank Rios MD insulin regular human (humuLIN R U-500 KWIKPEN) 500 UNIT/ML concentrated injection pen 140 Units 140 Units Subcutaneous QAM AC Asuncion Garibay, DO 140 Units at 09/24/20 0817 insulin regular human (humuLIN R U-500 KWIKPEN) 500 UNIT/ML concentrated injection pen 110 Units 110 Units Subcutaneous Daily before lunch Asuncion Garibay DO 110 Units at 09/24/20 1226 insulin regular human (humuLIN R U-500 KWIKPEN) 500 UNIT/ML concentrated injection pen 135 Units 135 Units Subcutaneous Dinner Asuncion Garibay, DO 135 Units at 09/23/20 1737 metoclopramide (REGLAN) tablet 10 mg 10 mg Oral TID AC Art Stapleton MD 10 mg at 09/24/201228 promethazine (PHENERGAN) injection 25 mg 25 mg Intramuscular Q6H PRN Art Stapleton MD 25 mg at 09/24/20 1537 morphine (PF) injection 4 mg 4 mg Intravenous Q6H PRN Kylah David MD 4 mg at 09/22/20 0054 metoprolol (LOPRESSOR) injection 5 mg 5 mg Intravenous Q6H PRN Priyank Rios MD 5 mg at 09/21/20 1820 pantoprazole (PROTONIX) injection 40 mg 40 mg Intravenous BID Sergio Silbey, DO 40 mg at 09/24/20 0824 And sodium chloride (PF) 0.9 % injection 10 mL 10 mL Intravenous BID Sergio Sibley, DO 10 mL at 09/24/20 0824 lactobacillus (CULTURELLE) capsule 1 capsule 1 capsule Oral Daily Nabil M Esterle, DO 1 capsule at 09/24/20 0824 ARIPiprazole (ABILIFY) tablet 10 mg 10 mg Oral Daily Nabil M Esterle, DO 10 mg at 09/24/20 0823 aspirin chewable tablet 81 mg 81 mg Oral Daily Nabil M Esterle, DO 81 mg at 09/24/20 0823 benzonatate (TESSALON) capsule 200 mg 200 mg Oral TID PRN Nabil M Esterle, DO bisacodyl (DULCOLAX) suppository 10 mg 10 mg Rectal Daily PRN Nabil M Esterle, DO bisacodyl (DULCOLAX) EC tablet 5 mg 5 mg Oral Q12H PRN Nabil M Esterle, DO 5 mg at 09/20/20 1544 cyclobenzaprine (FLEXERIL) tablet 10 mg 10 mg Oral TID PRN Nabil M Esterle, DO ferrous sulfate (IRON 325) tablet 325 mg 325 mg Oral BID WC Nabil M Esterle, DO 325 mg at 09/24/20 0824 FLUoxetine (PROZAC) capsule 40 mg 40 mg Oral Daily Nabil M Esterle, DO 40 mg at 09/24/20 0823 furosemide (LASIX) tablet 80 mg 80 mg Oral Daily Nabil M Esterle, DO 80 mg at 09/24/20 0823 lisinopril (PRINIVIL;ZESTRIL) tablet 40 mg 40 mg Oral Daily Nabil M Esterle, DO 40 mg at 09/24/20 0823 megestrol (MEGACE) tablet 80 mg 80 mg Oral BID Nabil M Esterle, DO 80 mg at 09/24/20 0824 therapeutic multivitamin-minerals 1 tablet 1 tablet Oral Daily Nabil M Esterle, DO 1 tablet at 09/24/20 0824 atorvastatin (LIPITOR) tablet 20 mg 20 mg Oral Daily Nabil M Esterle, DO 20 mg at 09/24/20 0824 tiZANidine (ZANAFLEX) tablet 4 mg 4 mg Oral Q8H PRN Nabil M Esterle, DO 4 mg at 09/23/202112 traMADol (ULTRAM) tablet 50 mg 50 mg Oral Q12H PRN Nabil M Esterle, DO 50 mg at 09/19/202143 vitamin C (ASCORBIC ACID) tablet 500 mg 500 mg Oral BID Nabil M Esterle, DO 500 mg at 09/24/20 0823 sodium chloride flush 0.9 % injection 10 mL 10 mL Intravenous 2 times per day Nabil M Esterle, DO 10mL at 09/24/20 0825 sodium chloride flush 0.9 % injection 10 mL 10 mL Intravenous PRN Nabil M Esterle, DO acetaminophen (TYLENOL) tablet 650 mg 650 mg Oral Q6H PRN Nabil M Esterle, DO 650 mg at 09/21/20 0908 Or acetaminophen (TYLENOL) suppository 650 mg 650 mg Rectal Q6H PRN Nabil M Esterle, DO polyethylene glycol (GLYCOLAX) packet 17 g 17 g Oral Daily PRN Nabil M Esterle, DO 17 g at 09/24/20 1245 enoxaparin (LOVENOX) injection 40 mg 40 mg Subcutaneous Daily Nabil M Esterle, DO 40 mg at 09/24/20 0822 glucose (GLUTOSE) 40 % oral gel 15 g 15 g Oral PRN Nabil M Esterle, DO dextrose 50 % IV solution 12.5 g Intravenous PRN Nabil M Esterle, DO glucagon (rDNA) injection 1 mg 1 mg Intramuscular PRN Nabil M Esterle, DO dextrose 5 % solution 100 mL/hr Intravenous PRN Nabil Gilliam DO Sergio OBJECTIVE VITALS: BP (!) 145/84 Pulse 97 Temp 98.6 F (37 C) (Temporal) Resp 16 Ht 5' 6" (1.676 m) Wt (!) 343 lb 1.6 oz (155.6 kg) SpO2 95% BMI 55.38 kg/m TEMPERATURE: Current - Temp: 98.6 F (37 C); Max - Temp Av.2 F (36.8 C) Min: 97.7 F (36.5 C) Max: 98.6 F (37 C) RESPIRATIONS RANGE: Resp Av Min: 16 Max: 16 PULSE RANGE: Pulse Av.7 Min: 94 Max: 99 BLOOD PRESSURE RANGE: Systolic (24hrs), Av , Min:102 , Max:145 ; Diastolic (24hrs), Av, Min:49, Max:84 PULSE OXIMETRY RANGE: SpO2 Av.3 % Min: 94 % Max: 95 % 24HR INTAKE/OUTPUT: Intake/Output Summary (Last 24 hours) at 09/24/2020 1556 Last data filed at 09/24/2020 0822 Gross per 24 hour Intake 610 ml Output Net 610 ml GENERAL: Pleasant and NAD. HEENT: NCAT, PERRLA, EOMI, Scleral anicteric. Oropharhynx clear with no erythema or exudate. Neck supple, no cervical LAD or thyromegaly. CV: RRR, NL S1/S2, no murmurs. Distal pulses palpable and equal b/l. LUNGS: CTA b/l. Normal percussion and palpation. No W/R/R. ABD: + BS, soft, less distention, mild epigastric tend, no rebound. EXT: No C/C, edema noted SKIN: No skin lesion or breakdown. NEURO: A&O x 3, CN II-XII grossly intact. No asterixis. Data Recent blood work, radiologic study and endoscopic study were reviewed with the patient. CBC: Recent Labs 09/22/20 0601 09/23/20 0120 09/24/20 0843 WBC 9.7 12.1* 7.1 HGB 11.8 11.8 19.3* HCT 35.1 35.4 59.6* PLT 474* 454* 215 HEPATIC: Recent Labs 09/23/20 0120 09/24/20 0843 AST 42 53* ALT 126* 113* BILITOT 0.9 0.9 ALKPHOS 150* 116 LIPASE/AMYLASE: No results for input(s): AMYLASE, LIPASE in the last 72 hours. LACTATE: No results for input(s): LACTA in the last 72 hours. BNP: No results for input(s): BNP in the last 72 hours. INR: No results for input(s): INR in the last 72 hours. ASSESSMENT AND PLAN 1. Esophagitis - on PPI and reglan. Awaiting path 2. Gastroparesis - dilated stomach? Nausea persists, somewhat lessened. Not mobile, likely would benefit from sitting up. Glycemic control per primary service, continue reglan 3. Nausea - see above 4. Constipation - hx not consistent. consider stool diary? * Nabil Hill, - 09/24/2020 2:57 PM EST Hospitalist Progress Note 09/24/2020 2:57 PM Subjective: Admit Date: 09/17/2020 PCP: Jared Guzman MD Interval History: pt not doing well today he states he has had a lot of nausea and is not keeping things down. He states he hasnt had a BM in several days but per Dr haider note from yesterday that the nurse informed him that he had 3-4 BM the nignt before. DIET FULL LIQUID; Carb Control: 4 carb choices (60 gms)/meal Dietary Nutrition Supplements: Low Calorie High Protein Supplement Intake/Output Summary (Last 24 hours) at 09/24/2020 1457 Last data filed at 09/24/2020 0822 Gross per 24 hour Intake 610 ml Output Net 610 ml Medications: dextrose insulin regular human 140 Units Subcutaneous QAM AC insulin regular human 110 Units Subcutaneous Daily before lunch insulin regular human 135 Units Subcutaneous Dinner metoclopramide 10 mg Oral TID AC pantoprazole 40 mg Intravenous BID And sodium chloride (PF) 10 mL Intravenous BID lactobacillus 1 capsule Oral Daily ARIPiprazole 10 mg Oral Daily aspirin 81 mg Oral Daily ferrous sulfate 325 mg Oral BID WC FLUoxetine 40 mg Oral Daily furosemide 80 mg Oral Daily lisinopril 40 mg Oral Daily megestrol 80 mg Oral BID therapeutic multivitamin-minerals 1 tablet Oral Daily atorvastatin 20 mg Oral Daily vitamin C 500 mg Oral BID sodium chloride flush 10 mL Intravenous 2 times per day enoxaparin 40 mg Subcutaneous Daily Recent Labs 09/22/20 0601 09/23/20 0120 09/24/20 0843 WBC 9.7 12.1* 7.1 HGB 11.8 11.8 19.3* PLT 474* 454* 215 Recent Labs 09/22/20 0602 09/23/20 0120 09/24/20 0843 NA 129* 127* 133* K 4.1 3.9 3.7 CL 94* 93* 99 CO2 29 24 27 BUN 21* 26* 29* CREATININE 0.88 1.05 1.97* GLUCOSE 269* 242* 110* Recent Labs 09/22/20 0602 09/23/20 0120 09/24/20 0843 AST 51* 42 53* ALT 137* 126* 113* BILITOT 0.7 0.9 0.9 ALKPHOS 125 150* 116 Troponin T: No results for input(s): TROPONINI in the last 72 hours. Pro-BNP: No results for input(s): BNP in the last 72 hours. INR: No results for input(s): INR in the last 72 hours. Objective: Vitals: BP (!) 102/54 Pulse 99 Temp 97.7 F (36.5 C) Resp 16 Ht 5' 6" (1.676 m) Wt (!) 343lb 1.6 oz (155.6 kg) SpO2 94% BMI 55.38 kg/m General appearance: alert and cooperative with exam Lungs: clear to auscultation bilaterally Heart: regular rate and rhythm, S1, S2 normal, no murmur, click, rub or gallop Abdomen: soft, non-tender; bowel sounds normal; no masses, no organomegaly Extremities: extremities normal, atraumatic, no cyanosis or edema Neurologic: No obvious focal neurologic deficits. Assessment and Plan: 1. Ileus, improved, will check another KUB tomorrow 2. DM poorly controlled, back on U500 insulin 3. HTN 4. Morbid obesity 5. Esophagitis Plan KUB in am reglan per GI Advance Directive: Full Code DVT prophylaxis with enoxaparin 40 mg sub-Q daily. Discharge planning: snf Active Problems: Ileus (HCC) Nausea and vomiting Esophagitis Resolved Problems: * No resolved hospital problems. * NABIL HILL DO * Art Stapleton MD - 09/23/2020 12:42 PM EST Progress Note 09/23/2020 12:42 PM Subjective: Admit Date: 09/17/2020 Interval History: pt reports no BM for 6-7 days---nurse reports several soft BMs last pm/this AM---abd sl tender diffusely--no bowel sounds----Xray still shows ileus--sugars high--endo regulating insulin DIET FULL LIQUID; Carb Control: 4 carb choices (60 gms)/meal Dietary Nutrition Supplements: Low Calorie High Protein Supplement No intake or output data in the 24 hours ending 09/23/20 1242 Medications: dextrose [START ON 09/24/2020] insulin regular human 140 Units Subcutaneous QAM AC insulin regular human 110 Units Subcutaneous Daily before lunch insulin regular human 135 Units Subcutaneous Dinner metoclopramide 10 mg Oral TID AC pantoprazole 40 mg Intravenous BID And sodium chloride (PF) 10 mL Intravenous BID lactobacillus 1 capsule Oral Daily ARIPiprazole 10 mg Oral Daily aspirin 81 mg Oral Daily ferrous sulfate 325 mg Oral BID WC FLUoxetine 40 mg Oral Daily furosemide 80 mg Oral Daily lisinopril 40 mg Oral Daily megestrol 80 mg Oral BID therapeutic multivitamin-minerals 1 tablet Oral Daily atorvastatin 20 mg Oral Daily vitamin C 500 mg Oral BID sodium chloride flush 10 mL Intravenous 2 times per day enoxaparin 40 mg Subcutaneous Daily Recent Labs 09/22/20 0601 09/23/20 0120 WBC 9.7 12.1* HGB 11.8 11.8 PLT 474* 454* Recent Labs 09/21/20 1405 09/22/20 0602 09/23/20 0120 NA -- 129* 127* K -- 4.1 3.9 CL -- 94* 93* CO2 -- 29 24 BUN -- 21* 26* CREATININE -- 0.88 1.05 GLUCOSE 461* 269* 242* Recent Labs 09/22/20 0602 09/23/20 0120 AST 51* 42 ALT 137* 126* BILITOT 0.7 0.9 ALKPHOS 125 150* Troponin T: No results for input(s): TROPONINI in the last 72 hours. Pro-BNP: No results for input(s): BNP in the last 72 hours. INR: No results for input(s): INR in the last 72 hours. Objective: Vitals: BP (!) 148/94 Pulse 104 Temp 96.5 F (35.8 C) (Temporal) Resp 20 Ht 5' 6" (1.676 m) Wt (!) 343 lb 1.6 oz (155.6 kg) SpO2 93% BMI 55.38 kg/m General appearance: alert and cooperative with exam, no distress Lungs: clear to auscultation bilaterally Heart: regular rhythm, S1, S2 normal, no murmur, click, rub or gallop--borderline tachycardia Abdomen: mild tenderness--mostly low abd Extremities: Assessment and Plan: 1. ileus---will change reglan to p.o. 2. Active Problems: Ileus (HCC) Nausea and vomiting Esophagitis Resolved Problems: * No resolved hospital problems. * ART STAPLETON, MDProgress Note Date:09/23/2020 Room:[facility] Patient Name:Will Jacinto Date of :1965 Age:54 y.o. Subjective Subjective Review of Systems Objective Vitals Last 24 Hours: TEMPERATURE: Temp Av.2 F (36.2 C) Min: 96.1 F (35.6 C) Max: 98.5 F (36.9 C) RESPIRATIONS RANGE: Resp Av.3 Min: 17 Max: 20 PULSE OXIMETRY RANGE: SpO2 Av.7 % Min: 91 % Max: 96 % PULSE RANGE: Pulse Av.8 Min: 92 Max: 111 BLOOD PRESSURE RANGE: Systolic (24hrs), Av , Min:105 , Max:168 ; Diastolic (24hrs), Av, Min:59, Max:94 I/O (24Hr): No intake or output data in the 24 hours ending 09/23/20 1242 Objective Labs/Imaging/Diagnostics Labs: CBC: Recent Labs 09/22/20 0601 09/23/20 0120 WBC 9.7 12.1* RBC 4.07 4.08 HGB 11.8 11.8 HCT 35.1 35.4 MCV 86.4 86.8 RDW 14.9* 15.2* PLT 474* 454* CHEMISTRIES: Recent Labs 09/21/20 1405 09/22/20 0602 09/23/20 0120 NA -- 129* 127* K -- 4.1 3.9 CL -- 94* 93* CO2 -- 29 24 BUN -- 21* 26* CREATININE -- 0.88 1.05 GLUCOSE 461* 269* 242* PT/INR:No results for input(s): PROTIME, INR in the last 72 hours. APTT:No results for input(s): APTT in the last 72 hours. LIVER PROFILE: Recent Labs 09/22/20 0602 09/23/20 0120 AST 51* 42 ALT 137* 126* BILITOT 0.7 0.9 ALKPHOS 125 150* Imaging Last 24 Hours: Xr Abdomen (kub) (single Ap View) Result Date: 09/23/2020 Patient Name: WILL JACINTO ---Diagnostic Radiology--- Exam Date/Time 09/23/2020 10:26:17 EST Exam CR Abdomen AP Ordering Physician MD JOANN, KYLAH Garcia Accession Number [id number] CPT4 Codes 27071 () Reason For Exam ileus, improving Report Abdomen: 09/23/2020. Clinical Information: Ileus. Findings: A single supine view of the abdomen was compared to prior day's study. There continue to be mildly dilated loops of small bowel centrally with some distal gas. The findings are most likely consistent with a mild ileus. Report Dictated on --- Final --- Dictating Physician: MD ALLEN RISA Signed Date and Time: 09/23/2020 11:00 am Signed by: MD ALLEN RISA Transcribed Date and Time: 09/23/2020 11:01 Xr Abdomen (kub) (single Ap View) Result Date: 09/22/2020 Patient Name: WILL JACINTO ---Diagnostic Radiology--- Exam Date/Time 09/22/2020 07:41:53 EST Exam CR Abdomen AP Ordering Physician MD JOANN, KYLAH Garcia Accession Number [id number] CPT4 Codes 37201 () Reason For Exam ileus Report ABDOMEN: CLINICAL INDICATION: Ileus. TECHNIQUE: AP views of the abdomen were obtained. COMPARISON: 09/20/2020 FINDINGS: Nonspeci fic bowel gas pattern with nondistended air-filled loops of small bowel and colon. No abnormal softtissue calcifications are noted. Degenerative changes are noted throughout the thoracic and lumbar spine.. IMPRESSION: Nonspecific nonobstructive bowel gas pattern with air-filled loops of small bowel and colon. Report Dictated on --- Final --- Dictating Physician: DO ARREOLA RACHEL Signed Date and Time: 09/22/2020 8:31 am Signed by: DO ARREOLA RACHEL Transcribed Date and Time: 09/22/2020 8:32 Assessment//Plan Hospital Problems Last Modified POA Ileus (HCC) 09/17/2020 Yes Nausea and vomiting 09/22/2020 Yes Esophagitis 09/22/2020 Yes Assessment & Plan * Fernanda Chappell, KAYLA, LD - 09/23/2020 11:16 AM EST Comprehensive Nutrition Assessment Type and Reason for Visit: Initial, Positive Nutrition Screen Nutrition Recommendations/Plan: 1. Pt on full liquids, 60g CHO/meal. Pt still experiencing nausea this AM. Today's KUB results reviewed. 2. Will trial Ensure high protein once daily per MNT protocol. Ensure High Protein provides 160 kcals, 16 g protein per serving. 3. Please document pt's PO intakes via flowsheet to accurately assess PO intake adequacy. 4. Would recommend diet review once pt is feeling better and more appropriate. 5. Monitor intakes, wts, and labs. RD will follow. Nutrition Assessment: Pt went down for a KUB this am- results consistent with mild ileus. Pt seen in bed. Likes to be called Maria Luisa- identifies as male. Pt mostly responding yes or no to questions; does not elaborate much. Pt reported that he is still having nausea/vomiting; unable to consume much. Pt agreeable to Ensure high protein trial Malnutrition Assessment: Malnutrition Status: Insufficient data Context: Acute Illness Findings of the 6 clinical characteristics of malnutrition: Energy Intake: 7 - 50% or less of estimated energy requirements for 5 or more days Weight Loss: No significant weight loss Body Fat Loss: No significant body fat loss Muscle Mass Loss: No significant muscle mass loss Fluid Accumulation: 7 - Moderate to Severe Extremities Quality Control Inspector Heading Strength: Not Performed Estimated Daily Nutrient Needs: Energy (kcal): 0660-3246; Weight Used for Energy Requirements: Adjusted(IBW) Protein (g): 53-64; Weight Used for Protein Requirements: Adjusted(IBW) Fluid (ml/day): per MD; Method Used for Fluid Requirements: Nutrition Related Findings: +2 non pitting LLE, Right AKA, Na 127, Cl 93, BUN 26, POC glucose 348, 234, 363, 328, ca++8.6 Wounds: (red LLE) Current Nutrition Therapies: DIET FULL LIQUID; Carb Control: 4 carb choices (60 gms)/meal Dietary Nutrition Supplements: Low Calorie High Protein Supplement Anthropometric Measures: Height: 5' 6" (167.6 cm) Current Body Weight: 343 lb (155.6 kg) Admission Body Weight: 360 lb (163.3 kg) Usual Body Weight: 340 lb (154.2 kg)(01/02/20) [place] Body Weight: 130 lbs; % [place] Body Weight 263.8 % BMI: 55.4 Adjusted Body Weight: 396.4; Amputation Adjusted BMI: 64 BMI Categories: Obese Class 3 (BMI 40.0 or greater) Nutrition Diagnosis: Inadequate oral intake related to altered GI function as evidenced by intake 0- 25%, NPO or clear liquid status due to medical condition, nausea, vomiting Nutrition Interventions: Food and/or Nutrient Delivery: Continue Current Diet, Start Oral Nutrition Supplement Nutrition Education/Counseling: No recommendation at this time Coordination of Nutrition Care: Continue to monitor while inpatient Goals: Pt will consume/tolerate >50% of meals/ONS without GI distress Nutrition Monitoring and Evaluation: Behavioral-Environmental Outcomes: None Identified Food/Nutrient Intake Outcomes: Food and Nutrient Intake, Supplement Intake, Diet Advancement/Tolerance Physical Signs/Symptoms Outcomes: GI Status, Nausea or Vomiting, Fluid Status or Edema, Meal Time Behavior, Nutrition Focused Physical Findings, Skin, Weight Discharge Planning: Too soon to determine Contact: *[id number] * Gayle Hanna MD - 09/23/2020 11:12 AM EST [facility] Attending GI Progress Note SUBJECTIVE: More nausea today. No bm 4-5 days per report from patient. Medications Current Facility-Administered Medications Medication Dose Route Frequency Provider Last Rate Last Dose promethazine (PHENERGAN) tablet 25 mg 25 mg Oral Q8H PRN Kylah David MD 25 mg at 09/23/20 0522 [START ON 09/24/2020] insulin regular human (humuLIN R U-500 KWIKPEN) 500 UNIT/ML concentrated injection pen 140 Units 140 Units Subcutaneous QAM AC Asuncion Garibay DO insulin regular human (humuLIN R U-500 KWIKPEN) 500 UNIT/ML concentrated injection pen 110 Units 110 Units Subcutaneous Daily before lunch Asuncion Garibay DO insulin regular human (humuLIN R U-500 KWIKPEN) 500 UNIT/ML concentrated injection pen 135 Units 135 Units Subcutaneous Dinner Asuncion Garibay DO morphine (PF) injection 4 mg 4 mg Intravenous Q6H PRN Kylah David MD 4 mg at 09/22/20 0054 metoprolol (LOPRESSOR) injection 5 mg 5 mg Intravenous Q6H PRN Kylah David MD 5 mg at pantoprazole (PROTONIX) injection 40 mg 40 mg Intravenous BID Sergio Sibley DO 40 mg at 09/23/20 0809 And sodium chloride (PF) 0.9 % injection 10 mL 10 mL Intravenous BID Sergio Sibley DO 10 mL at 09/23/20 0810 lactobacillus (CULTURELLE) capsule 1 capsule 1 capsule Oral Daily Nabil M Esterle, DO 1 capsule at 09/23/20 0810 ARIPiprazole (ABILIFY) tablet 10 mg 10 mg Oral Daily Nabil M Esterle, DO 10 mg at 09/22/20 0949 aspirin chewable tablet 81 mg 81 mg Oral Daily Nabil M Esterle, DO 81 mg at 09/23/20 0759 benzonatate (TESSALON) capsule 200 mg 200 mg Oral TID PRN Nabil M Esterle, DO bisacodyl (DULCOLAX) suppository 10 mg 10 mg Rectal Daily PRN Nabil M Esterle, DO bisacodyl (DULCOLAX) EC tablet 5 mg 5 mg Oral Q12H PRN Nabil M Esterle, DO 5 mg at 09/20/20 1544 cyclobenzaprine (FLEXERIL) tablet 10 mg 10 mg Oral TID PRN Nabil M Esterle, DO ferrous sulfate (IRON 325) tablet 325 mg 325 mg Oral BID WC Nabil M Esterle, DO 325 mg at 09/23/20 0759 FLUoxetine (PROZAC) capsule 40 mg 40 mg Oral Daily Naibl M Esterle, DO 40 mg at 09/23/20 0759 furosemide (LASIX) tablet 80 mg 80 mg Oral Daily Nabil M Esterle, DO 80 mg at 09/23/20 0808 lisinopril (PRINIVIL;ZESTRIL) tablet 40 mg 40 mg Oral Daily Nabil M Esterle, DO 40 mg at 09/23/20 0809 megestrol (MEGACE) tablet 80 mg 80 mg Oral BID Nabil M Esterle, DO 80 mg at 09/23/20 0759 therapeutic multivitamin-minerals 1 tablet 1 tablet Oral Daily Nabil M Esterle, DO 1 tablet at 09/23/20 0759 atorvastatin (LIPITOR) tablet 20 mg 20 mg Oral Daily Nabil M Esterle, DO 20 mg at 09/23/20 0759 tiZANidine (ZANAFLEX) tablet 4 mg 4 mg Oral Q8H PRN Nabil M Esterle, DO traMADol (ULTRAM) tablet 50 mg 50 mg Oral Q12H PRN Nabil M Esterle, DO 50 mg at 09/19/20 2144 vitamin C (ASCORBIC ACID) tablet 500 mg 500 mg Oral BID Nabil M Esterle, DO 500 mg at 09/23/20 0759 sodium chloride flush 0.9 % injection 10 mL 10 mL Intravenous 2 times per day Nabil M Esterle, DO 10mL at 09/23/20 0803 sodium chloride flush 0.9 % injection 10 mL 10 mL Intravenous PRN Nabil M Esterle, DO acetaminophen (TYLENOL) tablet 650 mg 650 mg Oral Q6H PRN Nabil M Esterle, DO 650 mg at 09/21/20 0908 Or acetaminophen (TYLENOL) suppository 650 mg 650 mg Rectal Q6H PRN Nabil M Esterle, DO polyethylene glycol (GLYCOLAX) packet 17 g 17 g Oral Daily PRN Nabil M Esterle, DO ondansetron (ZOFRAN) injection 4 mg 4 mg Intravenous Q6H PRN Nabil M Esterle, DO 4 mg at 09/23/20 0120 enoxaparin (LOVENOX) injection 40 mg 40 mg Subcutaneous Daily Nabil M Esterle, DO 40 mg at 09/23/20 0758 glucose (GLUTOSE) 40 % oral gel 15 g 15 g Oral PRN Nabil M Esterle, DO dextrose 50 % IV solution 12.5 g Intravenous PRN Nabil M Esterle, DO glucagon (rDNA) injection 1 mg 1 mg Intramuscular PRN Nabil M Esterle, DO dextrose 5 % solution 100 mL/hr Intravenous PRN Nabil M Esterle, DO OBJECTIVE VITALS: BP (!) 168/90 Pulse 103 Temp 96.8 F (36 C) (Temporal) Resp 19 Ht 5' 6" (1.676 m) Wt (!) 343 lb 1.6 oz (155.6 kg) SpO2 96% BMI 55.38 kg/m TEMPERATURE: Current - Temp: 96.8 F (36 C); Max - Temp Av.6 F (36.4 C) Min: 96.1 F (35.6 C) Max: 98.6 F (37 C) RESPIRATIONS RANGE: Resp Av.7 Min: 16 Max: 19 PULSE RANGE: Pulse Av.8 Min: 92 Max: 111 BLOOD PRESSURE RANGE: Systolic (24hrs), Av , Min:100 , Max:168 ; Diastolic (24hrs), Av, Min:46, Max:90 PULSE OXIMETRY RANGE: SpO2 Av.2 % Min: 91 % Max: 96 % 24HR INTAKE/OUTPUT: No intake or output data in the 24 hours ending 09/23/20 1112 GENERAL: Pleasant and NAD. HEENT: NCAT, PERRLA, EOMI, Scleral anicteric. Oropharhynx clear with no erythema or exudate. Neck supple, no cervical LAD or thyromegaly. CV: RRR, NL S1/S2, no murmurs. Distal pulses palpable and equal b/l. LUNGS: CTA b/l. Normal percussion and palpation. No W/R/R. ABD: + BS, soft, mild distention, epigastric tend. EXT: No C/C SKIN: No skin lesion or breakdown. NEURO: A&O x 3, No asterixis. Data Recent blood work, radiologic study and endoscopic study were reviewed with the patient. CBC: Recent Labs 09/22/20 0609/23/20 0120 WBC 9.7 12.1* HGB 11.8 11.8 HCT 35.1 35.4 PLT 474* 454* HEPATIC: Recent Labs 09/22/20 0609/23/20 012 AST 51* 42 ALT 137* 126* BILITOT 0.7 0.9 ALKPHOS 125 150* LIPASE/AMYLASE: No results for input(s): AMYLASE, LIPASE in the last 72 hours. LACTATE: No results for input(s): LACTA in the last 72 hours. BNP: No results for input(s): BNP in the last 72 hours. INR: No results for input(s): INR in the last 72 hours. ASSESSMENT AND PLAN 1. Esophagitis - on PPI, awaiting path 2. Dilated stomach - gastroparesis?, glycemic control poor at present, meds being adjusted. Continue smaller, more frequent meals, Start reglan 10 tid with meals if ok with primary service? 3. Constipation - Trial dulcolax suppository. Likely contribution from inactivity/inertia. 3. Nausea - see above * Carito Ruelas, PT - 09/23/2020 11:12 AM EST Physical Therapy Facility/Department: [facility] 2E TELEMETRY Daily Treatment Note NAME: Will Jacinto : 1965 Date of Service: 09/23/2020 Discharge Recommendations: ECF with PT Assessment Assessment: Pt continues to require assist for mobility. Pt is easily fatigued with minimal exertion and can only tolerate minimal standing (~15-20 seconds). Pt is expected to benefit from continued skilled therapy to progress mobility, strength, balance, and safety awareness REQUIRES PT FOLLOW UP: Yes Activity Tolerance Activity Tolerance: Patient limited by fatigue Patient Diagnosis(es): The primary encounter diagnosis was Ileus ([facility]). Diagnoses of Nausea and vomiting, intractability of vomiting not specified, unspecified vomiting type and Generalized abdominalpain were also pertinent to this visit. has a past medical history of Abnormal uterine bleeding (AUB), Above knee amputation of right lowerextremity (HCC), Bipolar 1 disorder (HCC), Blood circulation, collateral, Cellulitis, Depression, Diabetes mellitus (HCC), Disease of blood and blood forming organ, Endometrial hyperplasia, Hx of blood clots, Hyperlipidemia, Hypertension, Lymphedema, MDRO (multiple drug resistant organisms) resistance, Morbidly obese (HCC), Osteomyelitis (HCC), Osteomyelitis (HCC), Schizophrenia (HCC), Sleep apnea, and Venous insufficiency. has a past surgical history that includes Abscess Drainage (Right, 09/09/2018); [place] tooth extraction; Dilation and curettage of uterus (05/18/2019); above knee amputation (Right, 06/16/2019); and Endoscopy, colon, diagnostic (09/19/2020). Restrictions Restrictions/Precautions Restrictions/Precautions: General Precautions, Fall Risk(R AKA, identifies as MALE "MARIA LUISA", tele, obese) Subjective General Chart Reviewed: Yes Subjective Subjective: Pt is agreeable to therapy General Comment Comments: Pt goes by "Maria Luisa" Pain Screening Patient Currently in Pain: Yes(pt c/o abdominal pain, did not rate) Objective Bed mobility Supine to Sit: Maximum assistance Sit to Supine: Unable to assess(left in care of OT at EOB) Comment: pt with slight dizziness upon sitting EOB, subsided prior to mobility Transfers Sit to Stand: Contact guard assistance(to FWW, with bed elevated) Stand to sit: Contact guard assistance Comment: denies dizziness, pt completed 5 trials of sit<->stand with FWW; pt only able to tolerate ~15-20 seconds of standing before requiring seated rest break d/t fatigue Ambulation Ambulation?: No Stairs/Curb Stairs?: No Goals Short term goals Time Frame for Short term goals: 5 visits Short term goal 1: Pt will complete 2-3 sets/10 reps of LE exercises to improve LE strength(NA) Short term goal 2: Pt will complete supine<->sit at min A to improve bed mobility(not met) Short term goal 3: Pt will complete sit<->stand with bariatric FWW at supervision in preparation for mobility(not met) Short term goal 4: Pt will complete stand pivot transfers at SBA to improve functional mobility(NA) Patient Goals Patient goals : pt did not state Plan Plan Times per week: 4 visits Times per day: Daily Current Treatment Recommendations: Strengthening, Balance Training, Functional Mobility Training, Transfer Training, Home Exercise Program, Safety Education & Training, Patient/Caregiver Education & Training, Equipment Evaluation, Education, & procurement, Positioning Plan Comment: Goals and/or treatment plan were established in collaboration with patient Safety Devices Type of devices: All fall risk precautions in place, Call light within reach, Gait belt, Patient atrisk for falls, Left in bed, Nurse notified Therapy Time Individual Concurrent Group Co-treatment Time In 0912 Time Out 0922 Minutes 10 Timed Code Treatment Minutes: 10 Minutes(ther act) Carito Ruelas PT, DPT * Althea Hancock OT - 09/23/2020 10:00 AM EST Occupational Therapy Facility/Department: [facility] 2E TELEMETRY Daily Treatment Note NAME: Will Jacinto : 1965 Date of Service: 09/23/2020 Discharge Recommendations: ECF with OT OT Equipment Recommendations Equipment Needed: No Assessment Performance deficits / Impairments: Decreased ADL status;Decreased strength;Decreased endurance;Decreased balance;Decreased posture Assessment: Pt participated in EOB ADL training with overhead reaching and overall MIN A as noted. Pt was fatigued with nausea, however was able to aaron ~10 min of functional sitting. Pt is expected to benefit from continued skilled OT services to address deficits and progress toward safe dc back [facility] facility. Prognosis: Fair Decision Making: Medium Complexity History: Pt is 54yo male presenting with ileus. PMH listed and significant for R AKA. Exam: AM PAC Assistance / Modification: MOD to MAX ASSIST OT Education: OT Role;Plan of Care;ADL Adaptive Strategies;Energy Conservation Barriers to Learning: none noted REQUIRES OT FOLLOW UP: Yes Activity Tolerance Activity Tolerance: Patient limited by fatigue;Patient limited by pain Safety Devices Safety Devices in place: Yes Type of devices: Call light within reach;All fall risk precautions in place;Gait belt;Patient at risk for falls;Left in bed;Nurse notified Patient Diagnosis(es): The primary encounter diagnosis was Ileus (HCC). Diagnoses of Nausea and vomiting, intractability of vomiting not specified, unspecified vomiting type and Generalized abdominalpain were also pertinent to this visit. has a past medical history of Abnormal uterine bleeding (AUB), Above knee amputation of right lowerextremity (HCC), Bipolar 1 disorder (HCC), Blood circulation, collateral, Cellulitis, Depression, Diabetes mellitus (HCC), Disease of blood and blood forming organ, Endometrial hyperplasia, Hx of blood clots, Hyperlipidemia, Hypertension, Lymphedema, MDRO (multiple drug resistant organisms) resistance, Morbidly obese (HCC), Osteomyelitis (HCC), Osteomyelitis (HCC), Schizophrenia ([facility]), Sleep apnea, and Venous insufficiency. has a past surgical history that includes Abscess Drainage (Right, 09/09/2018); [place] tooth extraction; Dilation and curettage of uterus (05/18/2019); above knee amputation (Right, 06/16/2019); and Endoscopy, colon, diagnostic (09/19/2020). Restrictions Restrictions/Precautions Restrictions/Precautions: General Precautions, Fall Risk(Jamilah DA SILVA, identifies as MALE "MARIA LUISA", tele, obese) Subjective General Chart Reviewed: Yes Patient assessed for rehabilitation services?: Yes Additional Pertinent Hx: Jamilah DA SILVA Jun 2019 Family / Caregiver Present: No Subjective Subjective: cooperative, flat affect and c/o nausea today General Comment Comments: OK to see per RN Vital Signs Patient Currently in Pain: Yes(abdominal discomfort, did not rate and repositioned for comfort) Orientation Orientation Overall Orientation Status: Within Normal Limits Objective ADL Grooming: Minimal assistance Additional Comments: Pt participated in EOB sitting during grooming tasks. Pt washed hair with shampoo cap and increased time. He then brushed his hair, demo decreased L UE ROM and required MIN A forbrushing posterior aspect of L head. Pt was delighted to complete this activity, however was fatigued after standing trials with PT today and requested to return to bed. Bed mobility Sit to Supine: Maximum assistance Comment: assist for all parts and scooted up with hover mat. Positioned for comfort with pillow under R stump. Pt reported discomfort and introduced to desensatization techniques for residual limb sensory issues. Plan Plan Times per week: 3 visits Current Treatment Recommendations: Strengthening, Balance Training, Endurance Training, Wheelchair Mobility Training, Safety Education & Training, Equipment Evaluation, Education, & procurement, Self-Care / ADL, Positioning Plan Comment: Goals and POC were established in collaboration with patient. AM-PAC Score AM-PAC Inpatient Daily Activity Raw Score: 16 (09/18/20952) AM-PAC Inpatient ADL T-Scale Score : 35.96 (09/18/20952) ADL Inpatient CMS 0-100% Score: 53.32 (09/18/20952) ADL Inpatient CMS G-Code Modifier : CK (09/18/20952) Goals Short term goals Time Frame for Short term goals: 4 visits Short term goal 1: Pt will aaron B UE ther exe to promote strength and activity tolerance for daily routine. NA Short term goal 2: Pt will complete BSC transfer at FWW with MIN A. NA Short term goal 3: Pt will aaron >10 min of functional EOB sitting at MOD INDEP during ADL routine. progressing Short term goal 4: Pt will complete toileting tasks at MOD ASSIST. NA Patient Goals Patient goals : improve activity tolerance and strength for ADL routine Therapy Time Individual Concurrent Group Co-treatment Time In 921 Time Out 0932 Minutes 10 Timed Code Treatment Minutes: 10 Minutes(ADL) Althea Hancock OT * Asuncion Garibay, DO - 09/23/2020 8:16 AM EST Department of Internal Medicine Division of Endocrinology, Diabetes, & Metabolism Endocrinology Progress Note Patient Name: Will Jacinto : 1965 AGE: 54 y.o. Room/Bed: 260/2601 Admission Date: 09/17/2020 7:46 PM Consult Date: 09/18/20 Visit Date: 09/23/2020 Reason for Endocrine Consult: DM mgmt Provider/Team Requesting Consult: Joann PCP: Jared Guzman MD Outpt District Sales Coordinator: yes, JEROME Lee/Kedar ASSESSMENT: T2DM uncontrolled with hyperglycemia Insulin resistance Body mass index is 55.38 kg/m . Morbid obesity Right AKA PLAN: The inpt antihyperglycemic regimen will be as follows: Give one extra dose of 15 units of U500 this AM. Change U500 pen to 140/110/135 Inpt GMF glucose goal 150. Inpt ICU glucose goal 150-180. Outpt goal A1C = 7%. Insulin is necessary for ongoing mgmt. FSBS to occur qAC/HS/PRN for s/s of hyper-/hypoglycemia. FSBS data will be used to determine the next steps in antihyperglycemic medication titration duringhospital stay. If hypoglycemia were to occur it should be treated per hospital protocol. Diet recommendation: carb controlled 60 gram limit no juice w/ trays District Sales Coordinator On-Call: AGAPITO Preferred Method of Communication/Reaching: Radario. The above physician should be paged w/ questions/concerns about items being managed by Endocrinology Team. If there are any questions or concerns related to the info in this progress note please page the oncall consultant rn directly. On-Call information can be found in the [facility] Online Directory. We can also be reached by Radario communication system. We appreciate the opportunity to participate in this pt's ongoing medical care. ANTICIPATED ENDOCRINE HOME GOING RECOMMENDATIONS: Optimized for Discharge from Endocrine standpoint: No Home Going Endocrine Rx Recommendations-- Current hosp [id number] insulin doses. Outpt Follow Up-- As scheduled. Appointment request sent to Endo office Staff: No SUBJECTIVE/HPI: CHIEF COMPLAINT: Abdominal Pain Type of DM: 2 Onset of DM: unclear Home DM Medication Regimen: U500 pen 280/280/280 DM control (last A1c/glucose data): Lab Results Component Value Date LABA1C 9.9 08/23/2020 Lab Results Component Value Date EAG 240 06/16/2019 Says stomach got worse overnight. Able to tolerate chicken broth for dinner time yesterday. Review of Systems All other systems reviewed and are negative. Inpt ROS: [] MALCOLM [] diaphoresis [] tremor [] CP [] chest pressure [] palpitation [] SOB [x] Abd pain [x] Nausea [] Emesis [] Other: (Legend: [x] if present; [] if not present) OBJECTIVE: Vitals: 09/22/20200409/22/20 2325 09/23/20 0351 09/23/20 0741 BP: 110/62 112/72 (!) 147/82 (!) 168/90 Pulse: 111 104 97 103 Resp: 18 17 18 19 Temp: 98.2 F (36.8 C) 96.1 F (35.6 C) 97.1 F (36.2 C) 96.8 F (36 C) TempSrc: Temporal Temporal Temporal Temporal SpO2: 96% 92% 91% 96% Weight: Height: Physical Exam Vitals signs reviewed. Constitutional: General: He is not in acute distress. Appearance: Normal appearance. He is well-developed. He is obese. He is not ill- appearing, toxic-appearing or diaphoretic. HENT: Head: Normocephalic and atraumatic. Right Ear: External ear normal. Left Ear: External ear normal. Nose: Nose normal. Eyes: General: No scleral icterus. Right eye: No discharge. Left eye: No discharge. Conjunctiva/sclera: Conjunctivae normal. Pulmonary: Effort: Pulmonary effort is normal. No respiratory distress. Abdominal: General: Abdomen is protuberant. Bowel sounds are increased. There is no distension. Palpations: Abdomen is soft. Skin: General: Skin is warm. Neurological: Mental Status: He is alert and oriented to person, place, and time. Psychiatric: Mood and Affect: Mood normal. Behavior: Behavior normal. 24 hour intake/output: No intake or output data in the 24 hours ending 09/23/20 0817 Diet: DIET FULL LIQUID; Carb Control: 4 carb choices (60 gms)/meal Medications (as per EMR): HomeMeds: Prior to Admission medications Medication Sig Start Date End Date Taking? Authorizing Provider cyclobenzaprine (FLEXERIL) 10 MG tablet Take 10 mg by mouth 3 times daily as needed for Muscle spasms Yes Historical Provider, traMADol (ULTRAM) 50 MG tablet Take 50 mg by mouth every 12 hours as needed for Pain. 09/09/20 09/23/20 Yes Historical Provider, tiZANidine (ZANAFLEX) 4 MG tablet Take 4 mg by mouth every 8 hours as needed Yes Historical Provider, ondansetron (ZOFRAN) 4 MG tablet Take 4 mg by mouth every 8 hours as needed for Nausea or Vomiting Yes Historical Provider, insulin regular human (HUMULIN R U-500 KWIKPEN) 500 UNIT/ML SOPN concentrated injection pen 280 units TID AC meals 08/28/20 Carito Thacker, PERSONAL CARE SERVICE PROVIDER - [employer]ING [employer] WORKER acetaminophen (TYLENOL) 325 MG tablet Take 650 mg by mouth every 6 hours as needed for Pain Historical Provider, SALINE NASAL SPRAY NA by Nasal route as needed Historical Provider, vitamin C (ASCORBIC ACID) 500 MG tablet Take 500 mg by mouth 2 times daily Historical Provider, megestrol (MEGACE) 40 MG tablet 2 po bid Patient taking differently: Take 80 mg by mouth 2 times daily 07/26/19 Justin Walsh MD ferrous sulfate 325 (65 Fe) MG tablet Take 1 tablet by mouth daily (with breakfast) Patient taking differently: Take 325 mg by mouth 2 times daily 05/21/19 Nabil Hill DO miconazole (MICOTIN) 2 % powder Apply topically 2 times daily. 01/17/19 Dom Beltran MD mineral oil-hydrophilic petrolatum (AQUAPHOR) ointment Apply topically as needed. 01/17/19 Dom Beltran MD FLUoxetine (PROZAC) 20 MG capsule Take 40 mg by mouth daily Historical Provider, ketoconazole (NIZORAL) 2 % shampoo Apply topically daily as needed for Itching Apply topically daily as needed. Historical Provider, Multiple Vitamins-Minerals (THERAPEUTIC MULTIVITAMIN-MINERALS) tablet Take 1 tablet by mouth daily Historical Provider, Magnesium Hydroxide (MILK OF MAGNESIA CONCENTRATE PO) Take 30 mLs by mouth as needed (constipation)Historical Provider, bisacodyl (DULCOLAX) [address] 10 mg rectally daily as needed for Constipation Historical Provider, bisacodyl (DULCOLAX) 5 MG EC tablet Take 5 mg by mouth every 12 hours as needed for Constipation Historical Provider, Biotin 10 MG tablet Take 10 mg by mouth daily Historical Provider, benzonatate (TESSALON) 200 MG capsule Take 200 mg by mouth 3 times daily as needed for Cough Historical Provider, ARIPiprazole (ABILIFY) 10 MG tablet Take 10 mg by mouth daily Historical Provider, Acidophilus Lactobacillus CAPS Take 1 tablet by mouth daily Historical Provider, aspirin 81 MG tablet Take 81 mg by mouth daily Historical Provider, simvastatin (ZOCOR) 20 MG tablet Take 20 mg by mouth nightly Historical Provider, lisinopril (PRINIVIL;ZESTRIL) 40 MG tablet Take 40 mg by mouth daily Historical Provider, furosemide (LASIX) 80 MG tablet Take 80 mg by mouth daily Historical Provider, Scheduled Meds: insulin regular human 125 Units Subcutaneous Dinner insulin regular human 125 Units Subcutaneous QAM AC insulin regular human 100 Units Subcutaneous Daily before lunch pantoprazole 40 mg Intravenous BID And sodium chloride (PF) 10 mL Intravenous BID lactobacillus 1 capsule Oral Daily ARIPiprazole 10 mg Oral Daily aspirin 81 mg Oral Daily ferrous sulfate 325 mg Oral BID WC FLUoxetine 40 mg Oral Daily furosemide 80 mg Oral Daily lisinopril 40 mg Oral Daily megestrol 80 mg Oral BID therapeutic multivitamin-minerals 1 tablet Oral Daily atorvastatin 20 mg Oral Daily vitamin C 500 mg Oral BID sodium chloride flush 10 mL Intravenous 2 times per day enoxaparin 40 mg Subcutaneous Daily Continuous Infusions: dextrose PRN Meds:promethazine, morphine (PF), metoprolol, benzonatate, bisacodyl, bisacodyl, cyclobenzaprine, tiZANidine, traMADol, sodium chloride flush, acetaminophen OR acetaminophen, polyethylene glycol, [DISCONTINUED] promethazine OR ondansetron, glucose, dextrose, glucagon (rDNA), dextrose Diagnostic Workup: I reviewed pertinent Laboratory results, Radiographic results, and Other Clinical Notes at the timeof today's encounter. BMP: Recent Labs 09/21/20 1405 09/22/20 0602 09/23/20 0120 NA -- 129* 127* K -- 4.1 3.9 CL -- 94* 93* CO2 -- 29 24 BUN -- 21* 26* CREATININE -- 0.88 1.05 GLUCOSE 461* 269* 242* Glucose: Recent Labs 09/21/20 1654 09/21/20 2029 09/22/20 0809 09/22/20 1121 09/22/20 1530 09/22/20 2006 09/23/20 0229 09/23/20 0737 POCGLU 440* 446* 277* 328* 355* 363* 231* 348* HgbA1C: No results for input(s): LABA1C in the last 72 hours. Hepatic: Recent Labs 09/23/20 0120 ALKPHOS 150* ALT 126* AST 42 PROT 7.2 BILITOT 0.9 LABALBU 3.7 Lipids: No results for input(s): CHOL, TRIG, HDL, LDLCALC in the last 72 hours. Invalid input(s): LDL TSH: Lab Results Component Value Date TSH 1.112 05/09/2019 T4FREE 1.15 05/09/2019 Radiology reportsas per the Radiologist Radiology: Xr Abdomen (kub) (single Ap View) Result Date: 09/18/2020 Patient Name: WILL JACINTO ---Diagnostic Radiology--- Exam Date/Time 09/18/2020 09:25:00 EST Exam CR Abdomen AP Ordering Physician DO HILL LISA Accession Number [id number] CPT4 Codes 65872 () Reason For Exam ileus Report Clinical Information: Abdominal pain and nausea. Ileus. Abdomen, KUB: A multiple AP supine radiographs of the abdomen demonstrate a distended gas filled stomach. There is a nonspecific bowel gas pattern. Gas is seen within multiple nondilated and mildly dilated loops small bowel. Gas and fecal residue are seen in normal caliber large bowel. There is no obvious free intraperitoneal gas on limited evaluation. No suspect calcification, organomegaly or soft tissue mass is seen. There is excreted urinary contrast within the urinarybladder. Impression: 1. Gaseous distention of the stomach which is nonspecific and could be relatedto gastroparesis, now with obstruction, aerophagia. 2. Nonspecific bowel gas pattern without evidence of obstruction 3. No other significant radiographic abnormality. Report Dictated on --- Final --- Dictating Physician: MD BARRAGAN HARLAN Signed Date and Time: 09/18/20209:48 am Signed by: MD BARRAGAN HARLAN Transcribed Date and Time: 09/18/2020 10:25 Ct Abdomen Pelvis W Contrast Result Date: 09/17/2020 Patient Name: WILL JACINTO ---CT--- Exam Date/Time 09/17/202022:15:[address] Abdomen/Pelvis w/ IV Contrast (IV Onl Ordering Physician ART OWEN Accession Number [id number] CPT4 Codes 63123 (CT Abdomen/Pelvis w/ IV Contrast (IV Onl), Q9967 (CT ISOVUE 370MG/ML&[id number]&ML&1) Reason For Exam abd pain/tenderness Report CT ABDOMEN AND PELVIS CLINICAL INDICATION: abd pain/tenderness TECHNIQUE: CT scan of the abdomen and pelvis with IV contrast. Multiplanar reformations. COMPARISON: 06/25/2018 FINDINGS: Right middle lobe lung nodule measures 3.2 mm. This area was not included on the prior scan. Lung bases otherwise clear. No free air seen. Diffuse hepatic steatosis. Normal gallbladder and biliary tree. Spleen shows no significant abnormality. Adrenal glands show no significant abnormality. Kidneys show no significant abnormality. Pancreas shows no significant abnormality. Abdominal aorta is nonaneurysmal. No bowel obstruction. Appendix is not seen. Uterus is enlarged, likely related to fibroids, but new since the previous study. No ureteral calculus seen on either side. Moderate distention of the stomach with fluid and gas. Mildly prominent small bowel loops also filled with gas, potentially an ileus. IMPRESSION: 1. Enlarged uterus likely relates to fibroids, new since the previous study. 2. Diffuse hepatic steatosis. 3. Right middle lobe nodule. No suspicious morphology. Fleischner Society guidelines indicate that for solitary or multiple nodules less than 6 mm in average cross- sectional size in a low risk patient need no specific follow-up. However, a 12 month follow-up can be considered if nodule morphology is suspicious or nodule is in an upper lobe. In a high risk patient with solitary or multiple nodules less than 6 mm in average cross-sectional size, recommendation is for optional CT follow-up in 12 months. 4. Moderate distention of the stomach with fluid and gas with gas present throughoutnumerous mildly prominent small bowel loops, consider possible ileus. 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) Bipolar 1 disorder (HCC) Blood circulation, collateral Cellulitis chronic L lower leg Depression Diabetes mellitus (HCC) Type II, on insulin Disease of blood and blood forming organ Endometrial hyperplasia Hx of blood clots RLE prior to amputation Hyperlipidemia Hypertension Lymphedema 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 No pertinent family history. Social History: Social History Tobacco Use Smoking status: Never Smoker Smokeless tobacco: Never Used Substance Use Topics Alcohol use: No Drug use: Never Portions of the information within this encounter were entered using an electronic dictation system. Best attempts were made to edit/proofread the information prior to note completion. Despite the review of information, some errors may remain. If there are questions related to the information contained within the note please contact the signing physician directly. I spent 35 minutes with the pt which involved more than 51% of the time in coordination of care, medical evaluation, review of records, and/or counseling of the pt regarding his/her condition/diseasestate/prognosis on the date of this note. * Kylah David MD - 09/22/2020 1:20 PM EST Progress Note 09/22/2020 1:20 PM Subjective: Admit Date: 09/17/2020 PCP: Jared Guzman MD Interval History: I don't know what happened to my progress note from yesterday- I may have to makerecords of them in an additional way if this computer isn't registering them for some reason. Yesterday patient continued to have pain and persistent ileus on xray so I ordered a Gen Surgical consult. Last night I was informed of severe hyperglycemia and learned that I could not reorder U500 insulin but that only Endocrinology could and that service had signed off apparently in response to Dr. Stapleton's order to discontinue it. I spoke with the environmental marketing representative and re-invited him to continue to care for this complicated diabetic patient and he reordered the U500. Also patient had high BP and prn iv lopressor was ordered for a systolic above 190, now her systolic is 100. Patient feels better and has less pain and is tolerating her diet so far. She is passing gas, and her KUB shows air-filledloops of bowel which are described as non-distended and non-obstructive. DIET FULL LIQUID; Carb Control: 4 carb choices (60 gms)/meal Intake/Output Summary (Last 24 hours) at 09/22/2020 1320 Last data filed at 09/22/2020 0600 Gross per 24 hour Intake 200 ml Output 975 ml Net -775 ml Medications: dextrose insulin regular human 125 Units Subcutaneous Dinner insulin regular human 125 Units Subcutaneous QAM AC insulin regular human 100 Units Subcutaneous Daily before lunch metoclopramide 10 mg Intravenous 4 times per day pantoprazole 40 mg Intravenous BID And sodium chloride (PF) 10 mL Intravenous BID lactobacillus 1 capsule Oral Daily ARIPiprazole 10 mg Oral Daily aspirin 81 mg Oral Daily ferrous sulfate 325 mg Oral BID WC FLUoxetine 40 mg Oral Daily furosemide 80 mg Oral Daily lisinopril 40 mg Oral Daily megestrol 80 mg Oral BID therapeutic multivitamin-minerals 1 tablet Oral Daily atorvastatin 20 mg Oral Daily vitamin C 500 mg Oral BID sodium chloride flush 10 mL Intravenous 2 times per day enoxaparin 40 mg Subcutaneous Daily Recent Labs 09/22/20 0601 WBC 9.7 HGB 11.8 PLT 474* Recent Labs 09/20/20 0507 09/21/20 1405 09/22/20 0602 NA 134* -- 129* K 4.5 -- 4.1 CL 101 -- 94* CO2 27 -- 29 BUN 22* -- 21* CREATININE 0.81 -- 0.88 GLUCOSE 259* 461* 269* Recent Labs 09/22/20 0602 AST 51* ALT 137* BILITOT 0.7 ALKPHOS 125 Objective: Vitals: BP (!) 100/46 Pulse 98 Temp 98.6 F (37 C) (Temporal) Resp 16 Ht 5' 6" (1.676 m) Wt (!) 343 lb 1.6 oz (155.6 kg) SpO2 96% BMI 55.38 kg/m General appearance: alert and cooperative with exam Lungs: clear to auscultation bilaterally Heart: regular rate and rhythm, S1, S2 normal, no murmur, click, rub or gallop Abdomen: soft, non-tender; bowel sounds normal; no masses, no organomegaly Extremities: extremities normal, atraumatic, no cyanosis or edema Neurologic: No obvious focal neurologic deficits. Assessment and Plan: 1. Ileus, improved, will check another KUB tomorrow 2. DM poorly controlled, back on U500 insulin 3. HTN 4. Morbid obesity 5. Esophagitis Advance Directive: Full Code DVT prophylaxis Lovenox 40 daily Discharge planning: snf Active Problems: Ileus (HCC) Nausea and vomiting Esophagitis Resolved Problems: * No resolved hospital problems. * Kylah David MD * Asuncion Garibay, DO - 09/22/2020 9:21 AM EST Department of Internal Medicine Division of Endocrinology, Diabetes, & Metabolism Endocrinology Progress Note Patient Name: Will Jacinto : 1965 AGE: 54 y.o. Room/Bed: 2602601 Admission Date: 09/17/2020 7:46 PM Consult Date: 09/18/20 Visit Date: 09/22/2020 Reason for Endocrine Consult: DM mgmt Provider/Team Requesting Consult: Joann PCP: Jared Guzman MD Outpt District Sales Coordinator: yes, JEROME Lee/Kedar ASSESSMENT: T2DM uncontrolled with hyperglycemia Insulin resistance Body mass index is 55.38 kg/m . Morbid obesity Right AKA PLAN: The inpt antihyperglycemic regimen will be as follows: Continue U500 125 qAC for today. Will adjust after we see what his sugars do on these doses. Inpt GMF glucose goal 150. Inpt ICU glucose goal 150-180. Outpt goal A1C = 7%. Insulin is necessary for ongoing mgmt. FSBS to occur qAC/HS/PRN for s/s of hyper-/hypoglycemia. FSBS data will be used to determine the next steps in antihyperglycemic medication titration duringhospital stay. If hypoglycemia were to occur it should be treated per hospital protocol. Diet recommendation: carb controlled 60 gram limit no juice w/ trays District Sales Coordinator On-Call: AGAPITO Preferred Method of Communication/Reaching: Radario. The above physician should be paged w/ questions/concerns about items being managed by Endocrinology Team. If there are any questions or concerns related to the info in this CONSULTATION please page the vp organizational development consultant rn directly. On-Call information can be found in the [facility] Online Directory. We can also be reached by Radario communication system. We appreciate the opportunity to participate in this pt's ongoing medical care. ANTICIPATED ENDOCRINE HOME GOING RECOMMENDATIONS: Optimized for Discharge from Endocrine standpoint: No Home Going Endocrine Rx Recommendations-- Current hosp B644arg insulin doses. Outpt Follow Up-- As scheduled. Appointment request sent to Endo office Staff: No SUBJECTIVE/HPI: CHIEF COMPLAINT: Abdominal Pain Type of DM: 2 Onset of DM: unclear Home DM Medication Regimen: U500 pen 280/280/280 DM control (last A1c/glucose data): Lab Results Component Value Date LABA1C 9.9 08/23/2020 Lab Results Component Value Date EAG 240 06/16/2019 MALCOLM gone. Tolerating liq diet. Denies any solid food yesterday. Denies questions today. Review of Systems All other systems reviewed and are negative. Inpt ROS: [] MALCOLM [] diaphoresis [] tremor [] CP [] chest pressure [] palpitation [] SOB [] Abd pain [] Nausea [] Emesis [] Other: (Legend: [x] if present; [] if not present) OBJECTIVE: Vitals: 09/21/20 2124 09/22/20 0019 09/22/20 0548 09/22/20 0809 BP: (!) 165/84 136/61 (!) 110/54 (!) 112/56 Pulse: 86 87 91 91 Resp: 18 18 18 18 Temp: 96.8 F (36 C) 96 F (35.6 C) 95.4 F (35.2 C) 99.1 F (37.3 C) TempSrc: Temporal Temporal Temporal Temporal SpO2: 94% 93% 94% 93% Weight: Height: Physical Exam Vitals signs reviewed. Constitutional: General: He is not in acute distress. Appearance: Normal appearance. He is well-developed. He is obese. He is not ill- appearing, toxic-appearing or diaphoretic. HENT: Head: Normocephalic and atraumatic. Right Ear: External ear normal. Left Ear: External ear normal. Nose: Nose normal. Eyes: General: No scleral icterus. Right eye: No discharge. Left eye: No discharge. Conjunctiva/sclera: Conjunctivae normal. Pulmonary: Effort: Pulmonary effort is normal. No respiratory distress. Neurological: Mental Status: He is alert and oriented to person, place, and time. Psychiatric: Mood and Affect: Mood normal. Behavior: Behavior normal. 24 hour intake/output: Intake/Output Summary (Last 24 hours) at 09/22/2020 0921 Last data filed at 09/22/2020 0600 Gross per 24 hour Intake 200 ml Output 975 ml Net -775 ml Diet: DIET FULL LIQUID; Carb Control: 4 carb choices (60 gms)/meal Medications (as per EMR): HomeMeds: Prior to Admission medications Medication Sig Start Date End Date Taking? Authorizing Provider cyclobenzaprine (FLEXERIL) 10 MG tablet Take 10 mg by mouth 3 times daily as needed for Muscle spasms Yes Historical Provider, traMADol (ULTRAM) 50 MG tablet Take 50 mg by mouth every 12 hours as needed for Pain. 09/09/20 09/23/20 Yes Historical Provider, tiZANidine (ZANAFLEX) 4 MG tablet Take 4 mg by mouth every 8 hours as needed Yes Historical Provider, ondansetron (ZOFRAN) 4 MG tablet Take 4 mg by mouth every 8 hours as needed for Nausea or Vomiting Yes Historical Provider, insulin regular human (HUMULIN R U-500 KWIKPEN) 500 UNIT/ML SOPN concentrated injection pen 280 units TID AC meals 08/28/20 Carito Thacker, PERSONAL CARE SERVICE PROVIDER - SHEARING SHED WORKER acetaminophen (TYLENOL) 325 MG tablet Take 650 mg by mouth every 6 hours as needed for Pain Historical Provider, SALINE NASAL SPRAY NA by Nasal route as needed Historical Provider, vitamin C (ASCORBIC ACID) 500 MG tablet Take 500 mg by mouth 2 times daily Historical Provider, megestrol (MEGACE) 40 MG tablet 2 po bid Patient taking differently: Take 80 mg by mouth 2 times daily 07/26/19 Justin Walsh MD ferrous sulfate 325 (65 Fe) MG tablet Take 1 tablet by mouth daily (with breakfast) Patient taking differently: Take 325 mg by mouth 2 times daily 05/21/19 Nabil Hill DO miconazole (MICOTIN) 2 % powder Apply topically 2 times daily. 01/17/19 Dom Beltran MD mineral oil-hydrophilic petrolatum (AQUAPHOR) ointment Apply topically as needed. 01/17/19 Dom Beltran MD FLUoxetine (PROZAC) 20 MG capsule Take 40 mg by mouth daily Historical Provider, ketoconazole (NIZORAL) 2 % shampoo Apply topically daily as needed for Itching Apply topically daily as needed. Historical Provider, Multiple Vitamins-Minerals (THERAPEUTIC MULTIVITAMIN-MINERALS) tablet Take 1 tablet by mouth daily Historical Provider, Magnesium Hydroxide (MILK OF MAGNESIA CONCENTRATE PO) Take 30 mLs by mouth as needed (constipation)Historical Provider, bisacodyl (DULCOLAX) [address] 10 mg rectally daily as needed for Constipation Historical Provider, bisacodyl (DULCOLAX) 5 MG EC tablet Take 5 mg by mouth every 12 hours as needed for Constipation Historical Provider, Biotin 10 MG tablet Take 10 mg by mouth daily Historical Provider, benzonatate (TESSALON) 200 MG capsule Take 200 mg by mouth 3 times daily as needed for Cough Historical Provider, ARIPiprazole (ABILIFY) 10 MG tablet Take 10 mg by mouth daily Historical Provider, Acidophilus Lactobacillus CAPS Take 1 tablet by mouth daily Historical Provider, aspirin 81 MG tablet Take 81 mg by mouth daily Historical Provider, simvastatin (ZOCOR) 20 MG tablet Take 20 mg by mouth nightly Historical Provider, lisinopril (PRINIVIL;ZESTRIL) 40 MG tablet Take 40 mg by mouth daily Historical Provider, furosemide (LASIX) 80 MG tablet Take 80 mg by mouth daily Historical Provider, Scheduled Meds: insulin regular human 125 Units Subcutaneous Dinner insulin regular human 125 Units Subcutaneous QAM AC insulin regular human 100 Units Subcutaneous Daily before lunch metoclopramide 10 mg Intravenous 4 times per day pantoprazole 40 mg Intravenous BID And sodium chloride (PF) 10 mL Intravenous BID lactobacillus 1 capsule Oral Daily ARIPiprazole 10 mg Oral Daily aspirin 81 mg Oral Daily ferrous sulfate 325 mg Oral BID WC FLUoxetine 40 mg Oral Daily furosemide 80 mg Oral Daily lisinopril 40 mg Oral Daily megestrol 80 mg Oral BID therapeutic multivitamin-minerals 1 tablet Oral Daily atorvastatin 20 mg Oral Daily vitamin C 500 mg Oral BID sodium chloride flush 10 mL Intravenous 2 times per day enoxaparin 40 mg Subcutaneous Daily sodium chloride flush 3 mL Intravenous Q8H Continuous Infusions: dextrose PRN Meds:morphine (PF), metoprolol, benzonatate, bisacodyl, bisacodyl, cyclobenzaprine, tiZANidine,traMADol, sodium chloride flush, acetaminophen OR acetaminophen, polyethylene glycol, promethazine OR ondansetron, glucose, dextrose, glucagon (rDNA), dextrose Diagnostic Workup: I reviewed pertinent Laboratory results, Radiographic results, and Other Clinical Notes at the timeof today's encounter. BMP: Recent Labs 09/20/20 0507 09/21/20 1405 09/22/20 0602 NA 134* -- 129* K 4.5 -- 4.1 CL 101 -- 94* CO2 27 -- 29 BUN 22* -- 21* CREATININE 0.81 -- 0.88 GLUCOSE 259* 461* 269* Glucose: Recent Labs 09/20/20 0811 09/20/20 1302 09/20/20 1757 09/20/20 2037 09/21/20 0655 09/21/20 1654 09/21/20 2029 09/22/20 0809 POCGLU 283* 352* 192* 129* 138* 440* 446* 277* HgbA1C: No results for input(s): LABA1C in the last 72 hours. Hepatic: Recent Labs 09/22/20 0602 ALKPHOS 125 ALT 137* AST 51* PROT 6.9 BILITOT 0.7 LABALBU 3.7 Lipids: No results for input(s): CHOL, TRIG, HDL, LDLCALC in the last 72 hours. Invalid input(s): LDL TSH: Lab Results Component Value Date TSH 1.112 05/09/2019 T4FREE 1.15 05/09/2019 Radiology reportsas per the Radiologist Radiology: Xr Abdomen (kub) (single Ap View) Result Date: 09/18/2020 Patient Name: WILL JACINTO ---Diagnostic Radiology--- Exam Date/Time 09/18/2020 09:25:00 EST Exam CR Abdomen AP Ordering Physician DO HILL LISA Accession Number [id number] CPT4 Codes 85767 () Reason For Exam ileus Report Clinical Information: Abdominal pain and nausea. Ileus. Abdomen, KUB: A multiple AP supine radiographs of the abdomen demonstrate a distended gas filled stomach. There is a nonspecific bowel gas pattern. Gas is seen within multiple nondilated and mildly dilated loops small bowel. Gas and fecal residue are seen in normal caliber large bowel. There is no obvious free intraperitoneal gas on limited evaluation. No suspect calcification, organomegaly or soft tissue mass is seen. There is excreted urinary contrast within the urinarybladder. Impression: 1. Gaseous distention of the stomach which is nonspecific and could be relatedto gastroparesis, now with obstruction, aerophagia. 2. Nonspecific bowel gas pattern without evidence of obstruction 3. No other significant radiographic abnormality. Report Dictated on --- Final --- Dictating Physician: MD BARRAGAN HARLAN Signed Date and Time: 09/18/20209:48 am Signed by: MD BARRAGAN HARLAN Transcribed Date and Time: 09/18/2020 10:25 Ct Abdomen Pelvis W Contrast Result Date: 09/17/2020 Patient Name: WILL JACINTO ---CT--- Exam Date/Time 09/17/202022:15:[address] Abdomen/Pelvis w/ IV Contrast (IV Onl Ordering Physician ART OWEN Accession Number [id number] CPT4 Codes 21328 (CT Abdomen/Pelvis w/ IV Contrast (IV Onl), Q9967 (CT ISOVUE 370MG/ML&[id number]&ML&1) Reason For Exam abd pain/tenderness Report CT ABDOMEN AND PELVIS CLINICAL INDICATION: abd pain/tenderness TECHNIQUE: CT scan of the abdomen and pelvis with IV contrast. Multiplanar reformations. COMPARISON: 06/25/2018 FINDINGS: Right middle lobe lung nodule measures 3.2 mm. This area was not included on the prior scan. Lung bases otherwise clear. No free air seen. Diffuse hepatic steatosis. Normal gallbladder and biliary tree. Spleen shows no significant abnormality. Adrenal glands show no significant abnormality. Kidneys show no significant abnormality. Pancreas shows no significant abnormality. Abdominal aorta is nonaneurysmal. No bowel obstruction. Appendix is not seen. Uterus is enlarged, likely related to fibroids, but new since the previous study. No ureteral calculus seen on either side. Moderate distention of the stomach with fluid and gas. Mildly prominent small bowel loops also filled with gas, potentially an ileus. IMPRESSION: 1. Enlarged uterus likely relates to fibroids, new since the previous study. 2. Diffuse hepatic steatosis. 3. Right middle lobe nodule. No suspicious morphology. Fleischner Society guidelines indicate that for solitary or multiple nodules less than 6 mm in average cross- sectional size in a low risk patient need no specific follow-up. However, a 12 month follow-up can be considered if nodule morphology is suspicious or nodule is in an upper lobe. In a high risk patient with solitary or multiple nodules less than 6 mm in average cross-sectional size, recommendation is for optional CT follow-up in 12 months. 4. Moderate distention of the stomach with fluid and gas with gas present throughoutnumerous mildly prominent small bowel loops, consider possible ileus. 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) Bipolar 1 disorder (HCC) Blood circulation, collateral Cellulitis chronic L lower leg Depression Diabetes mellitus (HCC) Type II, on insulin Disease of blood and blood forming organ Endometrial hyperplasia Hx of blood clots RLE prior to amputation Hyperlipidemia Hypertension Lymphedema 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 No pertinent family history. Social History: Social History Tobacco Use Smoking status: Never Smoker Smokeless tobacco: Never Used Substance Use Topics Alcohol use: No Drug use: Never Portions of the information within this encounter were entered using an electronic dictation system. Best attempts were made to edit/proofread the information prior to note completion. Despite the review of information, some errors may remain. If there are questions related to the information contained within the note please contact the signing physician directly. I spent 25minutes with the pt which involved more than 51% of the time in coordination of care, medical evaluation, review of records, and/or counseling of the pt regarding his/her condition/disease state/prognosis on the date of this note. * Asuncion Valencia APRN - SHEARING SHED WORKER - 09/22/2020 8:31 AM EST GENERAL SURGERY Progress Note PATIENT NAME: Will Jacinto TODAY'S DATE: 09/22/2020 SUBJECTIVE: Patient was seen resting comfortably in bed. Abdominal pain improved. Passing flatus. No N/V overnight. Pain controlled Yes Other Complaints No Flatus/BM/or Ostomy function Yes OBJECTIVE: VITALS: BP (!) 112/56 Pulse 91 Temp 99.1 F (37.3 C) (Temporal) Resp 18 Ht 5' 6" (1.676 m) Wt (!) 343 lb 1.6 oz (155.6 kg) SpO2 93% BMI 55.38 kg/m INTAKE/OUTPUT: I/O last 3 completed shifts: In: 200 [P.O.:200] Out: 975 [Urine:975] No intake/output data recorded. REVIEW OF SYSTEMS: Pertinent positives and negatives as per interval history section PHYSICAL EXAM: CONSTITUTIONAL: A&O x 3, LUNGS: Resp effort easy and unlabored, breath sounds normal CARDIOVASCULAR: RRR ABDOMEN: soft, non-distended, non-tender, peritoneal signs absent MUSCULOSKELETAL: Normal range of motion NEUROLOGIC: Level of Alertness: awake PSYCHIATRIC: Speech is normal SKIN: Warm, dry, and intact Data: CBC: Recent Labs 09/22/20 0601 WBC 9.7 HGB 11.8 HCT 35.1 PLT 474* BMP: Recent Labs 09/20/20 0507 09/21/20 1405 09/22/20 0602 NA 134* -- 129* K 4.5 -- 4.1 CL 101 -- 94* CO2 27 -- 29 BUN 22* -- 21* CREATININE 0.81 -- 0.88 GLUCOSE 259* 461* 269* Hepatic: Recent Labs 09/22/20 0602 AST 51* ALT 137* BILITOT 0.7 ALKPHOS 125 ASSESSMENT AND PLAN: Mr. Jacinto is a 54 y/o morbidly obese with adynamic ileus - Diet as tolerated - XR abdomen pending - Uncontrolled DM with likely gastroparesis. DM mgmt per endocrine - Encourage out of bed and up in chair - Disposition: Awaiting read of abdominal XR. No acute surgical need for surgery as symptoms improving. Patient counseled on risks, benefits, and alternatives of treatment plan today. Patient states an understanding and willingness to proceed with plan. Asuncion Valencia [facility] Personal Pager [phone] [facility] Surgery Pager [phone] during hours 7:30a-4:30p Wednesday-Wednesday After hours, please contact physician vp organizational development. Associated attestation - Trae Pike MD - 09/22/2020 5:39 PM EST [facility] - Surgery [facility] Physicians Surgery Patient Name: Will Jacinto Date: 09/22/20 Patient seen and examined by myself and I agree with KRISTEN note below Feeling better +flatus, and aaron PO Abdomen obese, NT/ND Assessment /Plan: Ileus: improving Will cont to improve as medical issues improve No surgical issues nor any anticipated Cont adv diet as aaron and increase activity Surgery will sign off, available as needed Patient counseled on risks,benefits, and alternatives of treatement plan at length. Patient states an understanding and willingness to proceed with plan. I personally supervised my KRISTEN in the evaluation and management of Will Jacinto in the development of a treatment plan for this patient. I personally interviewed the patient and performed an individual physical examination. In addition, I discussed the patient's condition and treatment options with them. I have also reviewed and agree with the past medical, family and social history and care plan unless otherwise noted. All of the patient's questions were answered. Greater than 51% of the total care time including chart review, care coordination and face to face encounter was spent discussing/counseling the patient regarding the care plan for this patient. The patient was seen and examined independently and relevant data reviewed by myself. A full chart review was performed. Trae Pike MD General Surgery Perfect Serve: Trae Pike 5:35 PM 09/22/2020 * Asuncion Garibay DO - 09/21/2020 6:03 PM EST I spoke with Dr. David by phone. The primary team would like us to continue to manage the DM on this pt. Orders being placed at this time. Will see pt again tomorrow, 09/22/20 Asuncion Garibay DO 6:03 PM 09/21/20 * Gayle Hanna MD - 09/21/2020 1:47 PM EST [facility] Attending GI Progress Note SUBJECTIVE: Some nausea/belch, no melena Medications Current Facility-Administered Medications Medication Dose Route Frequency Provider Last Rate Last Dose metoclopramide (REGLAN) injection 10 mg 10 mg Intravenous 4 times per day Art Stapleton MD 10 mg at 09/21/20 0558 insulin lispro (HUMALOG) injection vial 0-12 Units 0-12 Units Subcutaneous TID Art Stapleton MD insulin lispro (HUMALOG) injection vial 0-6 Units 0-6 Units Subcutaneous Nightly Art Stapleton MD pantoprazole (PROTONIX) injection 40 mg 40 mg Intravenous BID Sergio Sibley DO 40 mg at 09/21/20 0859 And sodium chloride (PF) 0.9 % injection 10 mL 10 mL Intravenous BID Sergio Sibley DO 10 mL at 09/21/20 0903 lactobacillus (CULTURELLE) capsule 1 capsule 1 capsule Oral Daily Nabil Hlil DO 1 capsule at 09/21/20 0903 ARIPiprazole (ABILIFY) tablet 10 mg 10 mg Oral Daily Nabil M Esterle, DO 10 mg at 09/21/20 0900 aspirin chewable tablet 81 mg 81 mg Oral Daily Nabil M Esterle, DO 81 mg at 09/21/20 0900 benzonatate (TESSALON) capsule 200 mg 200 mg Oral TID PRN Nabil M Esterle, DO bisacodyl (DULCOLAX) suppository 10 mg 10 mg Rectal Daily PRN Nabil M Esterle, DO bisacodyl (DULCOLAX) EC tablet 5 mg 5 mg Oral Q12H PRN Nabil M Esterle, DO 5 mg at 09/20/20 1544 cyclobenzaprine (FLEXERIL) tablet 10 mg 10 mg Oral TID PRN Nabil M Esterle, DO ferrous sulfate (IRON 325) tablet 325 mg 325 mg Oral BID WC Nabil M Esterle, DO 325 mg at 09/20/20 0948 FLUoxetine (PROZAC) capsule 40 mg 40 mg Oral Daily Nabil M Esterle, DO 40 mg at 09/21/20 0859 furosemide (LASIX) tablet 80 mg 80 mg Oral Daily Nabil M Esterle, DO 80 mg at 09/21/20 0859 lisinopril (PRINIVIL;ZESTRIL) tablet 40 mg 40 mg Oral Daily Nabil M Esterle, DO 40 mg at 09/21/20 0900 megestrol (MEGACE) tablet 80 mg 80 mg Oral BID Nabil M Esterle, DO 80 mg at 09/21/20 0859 therapeutic multivitamin-minerals 1 tablet 1 tablet Oral Daily Nabil M Esterle, DO 1 tablet at 09/21/20 0900 atorvastatin (LIPITOR) tablet 20 mg 20 mg Oral Daily Nabil M Esterle, DO 20 mg at 09/21/20 0900 tiZANidine (ZANAFLEX) tablet 4 mg 4 mg Oral Q8H PRN Nabil M Esterle, DO traMADol (ULTRAM) tablet 50 mg 50 mg Oral Q12H PRN Nabil M Esterle, DO 50 mg at 09/19/20 2144 vitamin C (ASCORBIC ACID) tablet 500 mg 500 mg Oral BID Nabil M Esterle, DO 500 mg at 09/21/20 0859 sodium chloride flush 0.9 % injection 10 mL 10 mL Intravenous 2 times per day Nabil M Esterle, DO 10mL at 09/21/20 0900 sodium chloride flush 0.9 % injection 10 mL 10 mL Intravenous PRN Nabil M Esterle, DO acetaminophen (TYLENOL) tablet 650 mg 650 mg Oral Q6H PRN Nabil M Esterle, DO 650 mg at 09/21/20 0908 Or acetaminophen (TYLENOL) suppository 650 mg 650 mg Rectal Q6H PRN Nabil M Esterle, DO polyethylene glycol (GLYCOLAX) packet 17 g 17 g Oral Daily PRN Nabil M Esterle, DO promethazine (PHENERGAN) tablet 12.5 mg 12.5 mg Oral Q6H PRN Nabil M Esterle, DO 12.5 mg at 130 Or ondansetron (ZOFRAN) injection 4 mg 4 mg Intravenous Q6H PRN Nabil M Esterle, DO 4 mg at 09/21/20 1137 enoxaparin (LOVENOX) injection 40 mg 40 mg Subcutaneous Daily Nabil M Esterle, DO 40 mg at 09/21/20 0859 glucose (GLUTOSE) 40 % oral gel 15 g 15 g Oral PRN Nabil M Esterle, DO dextrose 50 % IV solution 12.5 g Intravenous PRN Nabil M Esterle, DO glucagon (rDNA) injection 1 mg 1 mg Intramuscular PRN Nabil M Esterle, DO dextrose 5 % solution 100 mL/hr Intravenous PRN Nabil M Esterle, DO morphine (PF) injection 2 mg 2 mg Intravenous Q4H PRN Kylah David MD 2 mg at 09/19/20 0434 sodium chloride flush 0.9 % injection 3 mL 3 mL Intravenous Q8H Art Zeng, DO 3 mL at 09/21/20 0558 OBJECTIVE VITALS: BP (!) 146/86 Pulse 98 Temp 98.4 F (36.9 C) (Temporal) Resp 18 Ht 5' 6" (1.676 m) Wt (!) 343 lb 1.6 oz (155.6 kg) SpO2 98% BMI 55.38 kg/m TEMPERATURE: Current - Temp: 98.4 F (36.9 C); Max - Temp Av.3 F (36.3 C) Min: 96 F (35.6 C) Max: 98.4 F (36.9 C) RESPIRATIONS RANGE: Resp Av.5 Min: 17 Max: 21 PULSE RANGE: Pulse Av Min: 81 Max: 106 BLOOD PRESSURE RANGE: Systolic (24hrs), Av , Min:124 , Max:154 ; Diastolic (24hrs), Av, Min:74, Max:86 PULSE OXIMETRY RANGE: SpO2 Av.2 % Min: 92 % Max: 98 % 24HR INTAKE/OUTPUT: No intake or output data in the 24 hours ending 09/21/20 1348 GENERAL: Pleasant and NAD. HEENT: NCAT, PERRLA, EOMI, Scleral anicteric. Oropharhynx clear with no erythema or exudate. Neck supple, no cervical LAD or thyromegaly. CV: RRR, NL S1/S2, no murmurs. Distal pulses palpable and equal b/l. LUNGS: CTA b/l. Normal percussion and palpation. No W/R/R. ABD: + BS, soft, non-tender and non-distended. No hepatosplenomegaly. No mass felt. No rebound or guarding. EXT: No C/C, edema noted, right bka. SKIN: No skin lesion or breakdown. NEURO: A&O x 3, CN II-XII grossly intact. No asterixis. Data Recent blood work, radiologic study and endoscopic study were reviewed with the patient. CBC: Recent Labs 09/19/20 0431 WBC 8.5 HGB 10.6* HCT 32.5* PLT 519* HEPATIC: Recent Labs 09/19/20 0431 AST 68* ALT 125* BILITOT 0.6 ALKPHOS 128* LIPASE/AMYLASE: No results for input(s): AMYLASE, LIPASE in the last 72 hours. LACTATE: No results for input(s): LACTA in the last 72 hours. BNP: No results for input(s): BNP in the last 72 hours. INR: No results for input(s): INR in the last 72 hours. ASSESSMENT AND PLAN 1. Esophagitis - on PPI, awaiting path 2. Dilated stomach - gastroparesis?, glycemic control, smaller, more frequent meals, reglan? 3. Nausea - see above * Asuncion Garibay, DO - 09/21/2020 11:04 AM EST Department of Internal Medicine Division of Endocrinology, Diabetes, & Metabolism Endocrinology Progress Note Patient Name: Will Jacinto : 1965 AGE: 54 y.o. Room/Bed: [address] [place] [address] Admission Date: 09/17/2020 7:46 PM Consult Date: 09/18/20 Visit Date: 09/21/2020 Reason for Endocrine Consult: DM mgmt Provider/Team Requesting Consult: Joann PCP: Jared Guzman MD Outpt District Sales Coordinator: yes, JEROME Lee/Kedar ASSESSMENT: T2DM uncontrolled with hyperglycemia Insulin resistance Body mass index is 55.38 kg/m . Morbid obesity Right AKA PLAN: The inpt antihyperglycemic regimen will be as follows: No changes Primary service has taken over mgmt of DM regimen. I called Dr. Stapleton's ans service and was told Dr. David was covering today. Ans service sent page to Dr. David. I also paged Dr. David directly to discuss this pt's care and am awaiting a return call. I will attempt to page Dr. David again later. We will sign off of the pt's care at this time. Please let us know if we can answer any further questions via [employer]. Inpt GMF glucose goal 150. Inpt ICU glucose goal 150-180. Outpt goal A1C = 7%. Insulin is necessary for ongoing mgmt. FSBS to occur qAC/HS/PRN for s/s of hyper-/hypoglycemia. FSBS data will be used to determine the next steps in antihyperglycemic medication titration duringhospital stay. If hypoglycemia were to occur it should be treated per hospital protocol. Diet recommendation: carb controlled 60 gram limit no juice w/ trays District Sales Coordinator On-Call: AGAPITO Preferred Method of Communication/Reaching: [employer]. The above physician should be paged w/ questions/concerns about items being managed by Endocrinology Team. If there are any questions or concerns related to the info in this CONSULTATION please page the vp organizational development consultant rn directly. On-Call information can be found in the [employer] Directory. We can also be reached by [employer] communication system. We appreciate the opportunity to participate in this pt's ongoing medical care. ANTICIPATED ENDOCRINE HOME GOING RECOMMENDATIONS: Optimized for Discharge from Endocrine standpoint: No Home Going Endocrine Rx Recommendations-- TBD per primary team Outpt Follow Up-- As scheduled. Appointment request sent to Endo office Staff: No SUBJECTIVE/HPI: CHIEF COMPLAINT: Abdominal Pain Type of DM: 2 Onset of DM: unclear Home DM Medication Regimen: U500 pen 280/280/280 DM control (last A1c/glucose data): Lab Results Component Value Date LABA1C 9.9 08/23/2020 Lab Results Component Value Date EAG 240 06/16/2019 Pt says he is not feeling any better today. Pt's U500 insulin was DC'd at some time yesterday evening. Pt is now ordered SS hlog qAC/HS. Review of Systems All other systems reviewed and are negative. Inpt ROS: [x] MALCOLM [] diaphoresis [] tremor [] CP [] chest pressure [] palpitation [] SOB [x] Abd pain [] Nausea [] Emesis [] Other: (Legend: [x] if present; [] if not present) OBJECTIVE: Vitals: 09/21/20 0000 09/21/20 0555 09/21/20 0740 09/21/20 1102 BP: (!) 149/82 138/79 124/76 (!) 146/86 Pulse: 82 86 106 98 Resp: 19 18 21 18 Temp: 97.2 F (36.2 C) 96 F (35.6 C) 96.9 F (36.1 C) 98.4 F (36.9 C) TempSrc: Temporal Temporal Temporal Temporal SpO2: 92% 94% 94% 98% Weight: Height: Physical Exam Vitals signs reviewed. Constitutional: General: He is not in acute distress. Appearance: He is well-developed. He is obese. He is not ill-appearing, toxic- appearing or diaphoretic. Comments: Pt lying supine with bag of ice on his head. HENT: Head: Normocephalic and atraumatic. Right Ear: External ear normal. Left Ear: External ear normal. Nose: Nose normal. Eyes: General: No scleral icterus. Right eye: No discharge. Left eye: No discharge. Conjunctiva/sclera: Conjunctivae normal. Pulmonary: Effort: Pulmonary effort is normal. No respiratory distress. Skin: General: Skin is warm. Neurological: Mental Status: He is alert and oriented to person, place, and time. Psychiatric: Mood and Affect: Mood normal. Behavior: Behavior normal. No physical exam was possible. 24 hour intake/output: No intake or output data in the 24 hours ending 09/21/20 1104 Diet: DIET FULL LIQUID; Carb Control: 4 carb choices (60 gms)/meal Medications (as per EMR): HomeMeds: Prior to Admission medications Medication Sig Start Date End Date Taking? Authorizing Provider cyclobenzaprine (FLEXERIL) 10 MG tablet Take 10 mg by mouth 3 times daily as needed for Muscle spasms Yes Historical Provider, traMADol (ULTRAM) 50 MG tablet Take 50 mg by mouth every 12 hours as needed for Pain. 09/09/20 09/23/20 Yes Historical Provider, tiZANidine (ZANAFLEX) 4 MG tablet Take 4 mg by mouth every 8 hours as needed Yes Historical Provider, ondansetron (ZOFRAN) 4 MG tablet Take 4 mg by mouth every 8 hours as needed for Nausea or Vomiting Yes Historical Provider, insulin regular human (HUMULIN R U-500 KWIKPEN) 500 UNIT/ML SOPN concentrated injection pen 280 units TID AC meals 08/28/20 Carito Thacker, PERSONAL CARE SERVICE PROVIDER - [employer]ARING [employer] WORKER acetaminophen (TYLENOL) 325 MG tablet Take 650 mg by mouth every 6 hours as needed for Pain Historical Provider, SALINE NASAL SPRAY NA by Nasal route as needed Historical Provider, vitamin C (ASCORBIC ACID) 500 MG tablet Take 500 mg by mouth 2 times daily Historical Provider, megestrol (MEGACE) 40 MG tablet 2 po bid Patient taking differently: Take 80 mg by mouth 2 times daily 07/26/19 Justin Walsh MD ferrous sulfate 325 (65 Fe) MG tablet Take 1 tablet by mouth daily (with breakfast) Patient taking differently: Take 325 mg by mouth 2 times daily 05/21/19 Nabil Hill DO miconazole (MICOTIN) 2 % powder Apply topically 2 times daily. 01/17/19 Dom Beltran MD mineral oil-hydrophilic petrolatum (AQUAPHOR) ointment Apply topically as needed. 01/17/19 Dom Beltran MD FLUoxetine (PROZAC) 20 MG capsule Take 40 mg by mouth daily Historical Provider, ketoconazole (NIZORAL) 2 % shampoo Apply topically daily as needed for Itching Apply topically daily as needed. Historical Provider, Multiple Vitamins-Minerals (THERAPEUTIC MULTIVITAMIN-MINERALS) tablet Take 1 tablet by mouth daily Historical Provider, Magnesium Hydroxide (MILK OF MAGNESIA CONCENTRATE PO) Take 30 mLs by mouth as needed (constipation)Historical Provider, bisacodyl (DULCOLAX) [address] 10 mg rectally daily as needed for Constipation Historical Provider, bisacodyl (DULCOLAX) 5 MG EC tablet Take 5 mg by mouth every 12 hours as needed for Constipation Historical Provider, Biotin 10 MG tablet Take 10 mg by mouth daily Historical Provider, benzonatate (TESSALON) 200 MG capsule Take 200 mg by mouth 3 times daily as needed for Cough Historical Provider, ARIPiprazole (ABILIFY) 10 MG tablet Take 10 mg by mouth daily Historical Provider, Acidophilus Lactobacillus CAPS Take 1 tablet by mouth daily Historical Provider, aspirin 81 MG tablet Take 81 mg by mouth daily Historical Provider, simvastatin (ZOCOR) 20 MG tablet Take 20 mg by mouth nightly Historical Provider, lisinopril (PRINIVIL;ZESTRIL) 40 MG tablet Take 40 mg by mouth daily Historical Provider, furosemide (LASIX) 80 MG tablet Take 80 mg by mouth daily Historical Provider, Scheduled Meds: metoclopramide 10 mg Intravenous 4 times per day insulin lispro 0-12 Units Subcutaneous TID WC insulin lispro 0-6 Units Subcutaneous Nightly pantoprazole 40 mg Intravenous BID And sodium chloride (PF) 10 mL Intravenous BID lactobacillus 1 capsule Oral Daily ARIPiprazole 10 mg Oral Daily aspirin 81 mg Oral Daily ferrous sulfate 325 mg Oral BID WC FLUoxetine 40 mg Oral Daily furosemide 80 mg Oral Daily lisinopril 40 mg Oral Daily megestrol 80 mg Oral BID therapeutic multivitamin-minerals 1 tablet Oral Daily atorvastatin 20 mg Oral Daily vitamin C 500 mg Oral BID sodium chloride flush 10 mL Intravenous 2 times per day enoxaparin 40 mg Subcutaneous Daily sodium chloride flush 3 mL Intravenous Q8H Continuous Infusions: dextrose PRN Meds:benzonatate, bisacodyl, bisacodyl, cyclobenzaprine, tiZANidine, traMADol, sodium chloride flush, acetaminophen OR acetaminophen, polyethylene glycol, promethazine OR ondansetron, glucose, dextrose, glucagon (rDNA), dextrose, morphine (PF) Diagnostic Workup: I reviewed pertinent Laboratory results, Radiographic results, and Other Clinical Notes at the timeof today's encounter. BMP: Recent Labs 09/18/20 1402 09/19/20 0431 09/20/20 0507 NA 134* 131* 134* K 5.3* 5.8* 4.5 CL 99 99 101 CO2 25 25 27 BUN 35* 29* 22* CREATININE 0.99 0.88 0.81 GLUCOSE 310* 395* 259* Glucose: Recent Labs 09/19/20 1246 09/19/20 1407 09/19/20 2046 09/20/20 0811 09/20/20 1302 09/20/20 1757 09/20/20 2037 09/21/20 0655 POCGLU 406* 395* 286* 283* 352* 192* 129* 138* HgbA1C: No results for input(s): LABA1C in the last 72 hours. Hepatic: Recent Labs 09/19/20 0431 ALKPHOS 128* ALT 125* AST 68* PROT 7.2 BILITOT 0.6 LABALBU 3.6 Lipids: No results for input(s): CHOL, TRIG, HDL, LDLCALC in the last 72 hours. Invalid input(s): LDL TSH: Lab Results Component Value Date TSH 1.112 05/09/2019 T4FREE 1.15 05/09/2019 Radiology reportsas per the Radiologist Radiology: Xr Abdomen (kub) (single Ap View) Result Date: 09/18/2020 Patient Name: WILL JACINTO ---Diagnostic Radiology--- Exam Date/Time 09/18/2020 09:25:00 EST Exam CR Abdomen AP Ordering Physician DO HILL LISA Accession Number [id number] CPT4 Codes 14278 () Reason For Exam ileus Report Clinical Information: Abdominal pain and nausea. Ileus. Abdomen, KUB: A multiple AP supine radiographs of the abdomen demonstrate a distended gas filled stomach. There is a nonspecific bowel gas pattern. Gas is seen within multiple nondilated and mildly dilated loops small bowel. Gas and fecal residue are seen in normal caliber large bowel. There is no obvious free intraperitoneal gas on limited evaluation. No suspect calcification, organomegaly or soft tissue mass is seen. There is excreted urinary contrast within the urinarybladder. Impression: 1. Gaseous distention of the stomach which is nonspecific and could be relatedto gastroparesis, now with obstruction, aerophagia. 2. Nonspecific bowel gas pattern without evidence of obstruction 3. No other significant radiographic abnormality. Report Dictated on --- Final --- Dictating Physician: MD BARRAGAN HARLAN Signed Date and Time: 09/18/20209:48 am Signed by: MD BARRAGAN HARLAN Transcribed Date and Time: 09/18/2020 10:25 Ct Abdomen Pelvis W Contrast Result Date: 09/17/2020 Patient Name: WILL JACINTO ---CT--- Exam Date/Time 09/17/202022:15:[address] Abdomen/Pelvis w/ IV Contrast (IV Onl Ordering Physician ART OWEN Accession Number [id number] CPT4 Codes 03875 (CT Abdomen/Pelvis w/ IV Contrast (IV Onl), Q9967 (CT ISOVUE 370MG/ML&[id number]&ML&1) Reason For Exam abd pain/tenderness Report CT ABDOMEN AND PELVIS CLINICAL INDICATION: abd pain/tenderness TECHNIQUE: CT scan of the abdomen and pelvis with IV contrast. Multiplanar reformations. COMPARISON: 06/25/2018 FINDINGS: Right middle lobe lung nodule measures 3.2 mm. This area was not included on the prior scan. Lung bases otherwise clear. No free air seen. Diffuse hepatic steatosis. Normal gallbladder and biliary tree. Spleen shows no significant abnormality. Adrenal glands show no significant abnormality. Kidneys show no significant abnormality. Pancreas shows no significant abnormality. Abdominal aorta is nonaneurysmal. No bowel obstruction. Appendix is not seen. Uterus is enlarged, likely related to fibroids, but new since the previous study. No ureteral calculus seen on either side. Moderate distention of the stomach with fluid and gas. Mildly prominent small bowel loops also filled with gas, potentially an ileus. IMPRESSION: 1. Enlarged uterus likely relates to fibroids, new since the previous study. 2. Diffuse hepatic steatosis. 3. Right middle lobe nodule. No suspicious morphology. Fleischner Society guidelines indicate that for solitary or multiple nodules less than 6 mm in average cross- sectional size in a low risk patient need no specific follow-up. However, a 12 month follow-up can be considered if nodule morphology is suspicious or nodule is in an upper lobe. In a high risk patient with solitary or multiple nodules less than 6 mm in average cross-sectional size, recommendation is for optional CT follow-up in 12 months. 4. Moderate distention of the stomach with fluid and gas with gas present throughoutnumerous mildly prominent small bowel loops, consider possible ileus. 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) Bipolar 1 disorder (HCC) Blood circulation, collateral Cellulitis chronic L lower leg Depression Diabetes mellitus (HCC) Type II, on insulin Disease of blood and blood forming organ Endometrial hyperplasia Hx of blood clots RLE prior to amputation Hyperlipidemia Hypertension Lymphedema 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 No pertinent family history. Social History: Social History Tobacco Use Smoking status: Never Smoker Smokeless tobacco: Never Used Substance Use Topics Alcohol use: No Drug use: Never Portions of the information within this encounter were entered using an electronic dictation system. Best attempts were made to edit/proofread the information prior to note completion. Despite the review of information, some errors may remain. If there are questions related to the information contained within the note please contact the signing physician directly. I spent 25 minutes with the pt which involved more than 51% of the time in coordination of care, medical evaluation, review of records, and/or counseling of the pt regarding his/her condition/diseasestate/prognosis on the date of this note. * Art Stapleton MD - 09/20/2020 2:13 PM EST Progress Note 09/20/2020 2:13 PM Subjective: Admit Date: 09/17/2020 Interval History: abdomen distended, silent--Xray shows persistent ileus----Rx as ordered DIET FULL LIQUID; Carb Control: 4 carb choices (60 gms)/meal No intake or output data in the 24 hours ending 09/20/20 1413 Medications:nausea & anorexia--sugars up---Rx as ordered--reglan & sliding scale insulin--- dextrose insulin regular human 150 Units Subcutaneous Daily before lunch insulin regular human 150 Units Subcutaneous Dinner [START ON 09/21/2020] insulin regular human 150 Units Subcutaneous QAM AC metoclopramide 10 mg Intravenous Q6H insulin lispro 0-12 Units Subcutaneous TID WC insulin lispro 0-6 Units Subcutaneous Nightly pantoprazole 40 mg Intravenous BID And sodium chloride (PF) 10 mL Intravenous BID lactobacillus 1 capsule Oral Daily ARIPiprazole 10 mg Oral Daily aspirin 81 mg Oral Daily ferrous sulfate 325 mg Oral BID WC FLUoxetine 40 mg Oral Daily furosemide 80 mg Oral Daily lisinopril 40 mg Oral Daily megestrol 80 mg Oral BID therapeutic multivitamin-minerals 1 tablet Oral Daily atorvastatin 20 mg Oral Daily vitamin C 500 mg Oral BID sodium chloride flush 10 mL Intravenous 2 times per day enoxaparin 40 mg Subcutaneous Daily sodium chloride flush 3 mL Intravenous Q8H Recent Labs 09/17/20205309/19/20 0431 WBC 11.0* 8.5 HGB 11.4* 10.6* PLT 544* 519* Recent Labs 09/18/20 1402 09/19/20 0431 09/20/20 0507 NA 134* 131* 134* K 5.3* 5.8* 4.5 CL 99 99 101 CO2 25 25 27 BUN 35* 29* 22* CREATININE 0.99 0.88 0.81 GLUCOSE 310* 395* 259* Recent Labs 09/17/20205309/18/20 0543 09/19/20 0431 AST 69* 74* 68* ALT 104* 104* 125* BILITOT 0.5 0.8 0.6 ALKPHOS 153* 133* 128* Troponin T: Recent Labs 09/17/202053 TROPONINI <0.012 Pro-BNP: No results for input(s): BNP in the last 72 hours. INR: No results for input(s): INR in the last 72 hours. Objective: Vitals: BP (!) 175/81 Pulse 85 Temp 97.6 F (36.4 C) (Temporal) Resp 18 Ht 5' 6" (1.676 m) Wt (!) 343 lb 1.6 oz (155.6 kg) SpO2 97% BMI 55.38 kg/m General appearance: alert and cooperative with exam, no distress Lungs: clear to auscultation bilaterally Heart: regular rhythm, S1, S2 normal, no murmur, click, rub or gallop Abdomen: silent Extremities: Assessment and Plan: 1. 2. Active Problems: Ileus (HCC) Resolved Problems: * No resolved hospital problems. * ART STAPLETON, MDProgress Note Date:09/20/2020 Room:[address] [place] [address] Patient Name:Will Jacinto Date of :1965 Age:54 y.o. Subjective Subjective Review of Systems Objective Vitals Last 24 Hours: TEMPERATURE: Temp Av.2 F (36.2 C) Min: 96.4 F (35.8 C) Max: 97.8 F (36.6 C) RESPIRATIONS RANGE: Resp Av.8 Min: 16 Max: 18 PULSE OXIMETRY RANGE: SpO2 Av.4 % Min: 92 % Max: 98 % PULSE RANGE: Pulse Av.6 Min: 79 Max: 88 BLOOD PRESSURE RANGE: Systolic (24hrs), Av , Min:143 , Max:180 ; Diastolic (24hrs), Av, Min:75, Max:90 I/O (24Hr): No intake or output data in the 24 hours ending 09/20/20 1413 Objective Labs/Imaging/Diagnostics Labs: CBC: Recent Labs 09/17/20205309/19/201 WBC 11.0* 8.5 RBC 3.87 3.67* HGB 11.4* 10.6* HCT 33.9* 32.5* MCV 87.8 88.7 RDW 14.9* 15.3* PLT 544* 519* CHEMISTRIES: Recent Labs 09/18/20 1402 09/19/20 0431 09/20/20 0507 NA 134* 131* 134* K 5.3* 5.8* 4.5 CL 99 99 101 CO2 25 25 27 BUN 35* 29* 22* CREATININE 0.99 0.88 0.81 GLUCOSE 310* 395* 259* PT/INR:No results for input(s): PROTIME, INR in the last 72 hours. APTT:No results for input(s): APTT in the last 72 hours. LIVER PROFILE: Recent Labs 09/17/20205309/18/20 0543 09/19/20 0431 AST 69* 74* 68* ALT 104* 104* 125* BILITOT 0.5 0.8 0.6 ALKPHOS 153* 133* 128* Imaging Last 24 Hours: Xr Abdomen (kub) (single Ap View) Result Date: 09/20/2020 Patient Name: WILL JACINTO ---Diagnostic Radiology--- Exam Date/Time 09/20/2020 08:59:00 EST Exam CR Abdomen AP Ordering Physician DO HILL LISA Accession Number [id number] CPT4 Codes 67047 () Reason For Exam ileus Report EXAMINATION: Abdomen: AP view. COMPARISON: 09/19/2020. REASON FOR STUDY: Ileus, nausea. FINDINGS: Small bowel loops are diffusely dilated. There is a small amount residual solid colonic content. No evidence of bowel thickening identified. No appreciable evidence of free intraperitoneal air. Osseous structures appear intact. CONCLUSIONS: Diffuse small bowel ileus versus partial distal obstruction. Report Dictated on --- Final --- Dictating Physician: MD SCHMIDT B NELSON Signed Date and Time: 09/20/2020 10:47 am Signed by: MD SCHMIDT B NELSON Transcribed Date and Time: 09/20/2020 10:48 Xr Abdomen (kub) (single Ap View) Result Date: 09/19/2020 Patient Name: WILL JACINTO ---Diagnostic Radiology--- Exam Date/Time 09/19/2020 12:13:39 EST Exam CR Abdomen AP Ordering Physician MD JOANN, KYLAH Garcia Accession Number [id number] CPT4 Codes 28385 () Reason For Exam ileus fu Report Examination: Abdomen 1 view, four images Indication: ileus fu Comparison: Previous day Findings: The patient is a large bodyhabitus. This does slightly limit assessment. Multiple dilated air-filled loops of bowel are noted,which appear colonic. There are also dilated loops of small bowel. There is also some stool in the distribution of the colon. Small osteophytes of the spine are present at multiple levels. Mild to moderate degenerative changes of the hips are also noted. Impression: Dilated loops of large and smallbowel, possibly secondary to ileus. Obstruction not entirely excluded. Follow-up as clinically directed. Report Dictated on --- Final --- Dictating Physician: MD GUY KRIKOR Signed Date and Time: 09/19/2020 1:19 pm Signed by: MD GUY KRIKOR Transcribed Date and Time: 09/19/2020 1:20 Assessment//Plan Hospital Problems Last Modified POA Ileus (HCC) 09/17/2020 Yes Assessment & Plan * Marcela Negron OTA - 09/20/2020 2:09 PM EST Occupational Therapy Facility/Department: [facility] TELEMETRY Daily Treatment Note NAME: Will Jacinto : 1965 Date of Service: 09/20/2020 Assessment REQUIRES OT FOLLOW UP: Yes Subjective General Chart Reviewed: Yes Subjective Subjective: Eyes half closed and minimal eye contact. States "My stomach just doesn't feel good today". Pt rubbing stomach in the bed. General Comment Comments: Declines therapy this date. Will attempt to see again. FLETCHER Giron * Juwan Canales PTA - 09/20/2020 10:57 AM EST Physical Therapy Facility/Department: [facility] 2E TELEMETRY Daily Treatment Note NAME: Will Jacinto : 1965 Chart review completed. Pt declined therapy this date due to nausea. I will re- attempt as schedule permits. Juwan Canales PTA * Asuncion Garibay, - 09/20/2020 8:29 AM EST Department of Internal Medicine Division of Endocrinology, Diabetes, & Metabolism Endocrinology Progress Note Patient Name: Will Jacinto : 1965 AGE: 54 y.o. Room/Bed: [address] [place] [address] Admission Date: 09/17/2020 7:46 PM Consult Date: 09/18/20 Visit Date: 09/20/2020 Reason for Endocrine Consult: DM mgmt Provider/Team Requesting Consult: Joann PCP: Jared Guzman MD Outpt District Sales Coordinator: yes, [facility] [place] Jesus/Kedar ASSESSMENT: T2DM uncontrolled with hyperglycemia Insulin resistance Body mass index is 55.38 kg/m . Morbid obesity Right AKA PLAN: The inpt antihyperglycemic regimen will be as follows: U500 pen 150/150/150 Inpt GMF glucose goal 150. Inpt ICU glucose goal 150-180. Outpt goal A1C = 7%. Insulin is necessary for ongoing mgmt. FSBS to occur qAC/HS/PRN for s/s of hyper-/hypoglycemia. FSBS data will be used to determine the next steps in antihyperglycemic medication titration duringhospital stay. If hypoglycemia were to occur it should be treated per hospital protocol. Diet recommendation: carb controlled 60 gram limit no juice w/ trays District Sales Coordinator On-Call: AGAPITO Preferred Method of Communication/Reaching: PerfectServe. The above physician should be paged w/ questions/concerns about items being managed by Endocrinology Team. If there are any questions or concerns related to the info in this CONSULTATION please page the vp organizational development consultant rn directly. On-Call information can be found in the [facility] Online Directory. We can also be reached by Radario communication system. We appreciate the opportunity to participate in this pt's ongoing medical care. ANTICIPATED ENDOCRINE HOME GOING RECOMMENDATIONS: Optimized for Discharge from Endocrine standpoint: No Home Going Endocrine Rx Recommendations-- Current hosp U500 doses. Send log to office 1 wk after DC. Outpt Follow Up-- As scheduled. Appointment request sent to Endo office Staff: No SUBJECTIVE/HPI: CHIEF COMPLAINT: Abdominal Pain Type of DM: 2 Onset of DM: unclear Home DM Medication Regimen: U500 pen 280/280/280 DM control (last A1c/glucose data): Lab Results Component Value Date LABA1C 9.9 08/23/2020 Lab Results Component Value Date EAG 240 06/16/2019 Pt was off of flr for xray when I attempted to see him. EMR reveiwed. Review of Systems Unable to perform ROS: Other OBJECTIVE: Vitals: 09/19/20 1510 09/19/20 2134 09/19/20 2318 09/20/20 0501 BP: (!) 180/86 (!) 160/90 (!) 143/87 (!) 152/75 Pulse: 81 88 85 79 Resp: 18 16 16 16 Temp: 97.6 F (36.4 C) 96.4 F (35.8 C) 96.7 F (35.9 C) 97.8 F (36.6 C) TempSrc: Oral Temporal Temporal Temporal SpO2: 98% 93% 92% 92% Weight: Height: Physical Exam No physical exam was possible. 24 hour intake/output: Intake/Output Summary (Last 24 hours) at 09/20/2020 0829 Last data filed at 09/19/2020 1314 Gross per 24 hour Intake 300 ml Output Net 300 ml Diet: DIET FULL LIQUID; Carb Control: 4 carb choices (60 gms)/meal Medications (as per EMR): HomeMeds: Prior to Admission medications Medication Sig Start Date End Date Taking? Authorizing Provider cyclobenzaprine (FLEXERIL) 10 MG tablet Take 10 mg by mouth 3 times daily as needed for Muscle spasms Yes Historical Provider, traMADol (ULTRAM) 50 MG tablet Take 50 mg by mouth every 12 hours as needed for Pain. 09/09/20 09/23/20 Yes Historical Provider, tiZANidine (ZANAFLEX) 4 MG tablet Take 4 mg by mouth every 8 hours as needed Yes Historical Provider, ondansetron (ZOFRAN) 4 MG tablet Take 4 mg by mouth every 8 hours as needed for Nausea or Vomiting Yes Historical Provider, insulin regular human (HUMULIN R U-500 KWIKPEN) 500 UNIT/ML SOPN concentrated injection pen 280 units TID AC meals 08/28/20 Carito Thacker, PERSONAL CARE SERVICE PROVIDER - [employer] acetaminophen (TYLENOL) 325 MG tablet Take 650 mg by mouth every 6 hours as needed for Pain Historical Provider, SALINE NASAL SPRAY NA by Nasal route as needed Historical Provider, vitamin C (ASCORBIC ACID) 500 MG tablet Take 500 mg by mouth 2 times daily Historical Provider, megestrol (MEGACE) 40 MG tablet 2 po bid Patient taking differently: Take 80 mg by mouth 2 times daily 07/26/19 Justin Walsh MD ferrous sulfate 325 (65 Fe) MG tablet Take 1 tablet by mouth daily (with breakfast) Patient taking differently: Take 325 mg by mouth 2 times daily 05/21/19 Nabil Hill DO miconazole (MICOTIN) 2 % powder Apply topically 2 times daily. 01/17/19 Dom Beltran MD mineral oil-hydrophilic petrolatum (AQUAPHOR) ointment Apply topically as needed. 01/17/19 Dom Beltran MD FLUoxetine (PROZAC) 20 MG capsule Take 40 mg by mouth daily Historical Provider, ketoconazole (NIZORAL) 2 % shampoo Apply topically daily as needed for Itching Apply topically daily as needed. Historical Provider, Multiple Vitamins-Minerals (THERAPEUTIC MULTIVITAMIN-MINERALS) tablet Take 1 tablet by mouth daily Historical Provider, Magnesium Hydroxide (MILK OF MAGNESIA CONCENTRATE PO) Take 30 mLs by mouth as needed (constipation)Historical Provider, bisacodyl (DULCOLAX) [address] 10 mg rectally daily as needed for Constipation Historical Provider, bisacodyl (DULCOLAX) 5 MG EC tablet Take 5 mg by mouth every 12 hours as needed for Constipation Historical Provider, Biotin 10 MG tablet Take 10 mg by mouth daily Historical Provider, benzonatate (TESSALON) 200 MG capsule Take 200 mg by mouth 3 times daily as needed for Cough Historical Provider, ARIPiprazole (ABILIFY) 10 MG tablet Take 10 mg by mouth daily Historical Provider, Acidophilus Lactobacillus CAPS Take 1 tablet by mouth daily Historical Provider, aspirin 81 MG tablet Take 81 mg by mouth daily Historical Provider, simvastatin (ZOCOR) 20 MG tablet Take 20 mg by mouth nightly Historical Provider, lisinopril (PRINIVIL;ZESTRIL) 40 MG tablet Take 40 mg by mouth daily Historical Provider, furosemide (LASIX) 80 MG tablet Take 80 mg by mouth daily Historical Provider, Scheduled Meds: insulin regular human 150 Units Subcutaneous Daily before lunch insulin regular human 150 Units Subcutaneous Dinner [START ON 09/21/2020] insulin regular human 150 Units Subcutaneous QAM AC pantoprazole 40 mg Intravenous BID And sodium chloride (PF) 10 mL Intravenous BID lactobacillus 1 capsule Oral Daily ARIPiprazole 10 mg Oral Daily aspirin 81 mg Oral Daily ferrous sulfate 325 mg Oral BID WC FLUoxetine 40 mg Oral Daily furosemide 80 mg Oral Daily lisinopril 40 mg Oral Daily megestrol 80 mg Oral BID therapeutic multivitamin-minerals 1 tablet Oral Daily atorvastatin 20 mg Oral Daily vitamin C 500 mg Oral BID sodium chloride flush 10 mL Intravenous 2 times per day enoxaparin 40 mg Subcutaneous Daily sodium chloride flush 3 mL Intravenous Q8H Continuous Infusions: dextrose PRN Meds:benzonatate, bisacodyl, bisacodyl, cyclobenzaprine, tiZANidine, traMADol, sodium chloride flush, acetaminophen OR acetaminophen, polyethylene glycol, promethazine OR ondansetron, glucose, dextrose, glucagon (rDNA), dextrose, morphine (PF) Diagnostic Workup: I reviewed pertinent Laboratory results, Radiographic results, and Other Clinical Notes at the timeof today's encounter. BMP: Recent Labs 09/18/20 1402 09/19/20 0431 09/20/20 0507 NA 134* 131* 134* K 5.3* 5.8* 4.5 CL 99 99 101 CO2 25 25 27 BUN 35* 29* 22* CREATININE 0.99 0.88 0.81 GLUCOSE 310* 395* 259* Glucose: Recent Labs 09/18/20 1619 09/18/20 1624 09/18/20 2051 09/19/20 0758 09/19/20 1246 09/19/20 1407 09/19/20 2046 09/20/20 0811 POCGLU 341* 349* 378* 412* 406* 395* 286* 283* HgbA1C: No results for input(s): LABA1C in the last 72 hours. Hepatic: Recent Labs 09/19/20 0431 ALKPHOS 128* ALT 125* AST 68* PROT 7.2 BILITOT 0.6 LABALBU 3.6 Lipids: No results for input(s): CHOL, TRIG, HDL, LDLCALC in the last 72 hours. Invalid input(s): LDL TSH: Lab Results Component Value Date TSH 1.112 05/09/2019 T4FREE 1.15 05/09/2019 Radiology reportsas per the Radiologist Radiology: Xr Abdomen (kub) (single Ap View) Result Date: 09/18/2020 Patient Name: WILL JACINTO ---Diagnostic Radiology--- Exam Date/Time 09/18/2020 09:25:00 EST Exam CR Abdomen AP Ordering Physician DO HILL LISA Accession Number [id number] CPT4 Codes 65509 () Reason For Exam ileus Report Clinical Information: Abdominal pain and nausea. Ileus. Abdomen, KUB: A multiple AP supine radiographs of the abdomen demonstrate a distended gas filled stomach. There is a nonspecific bowel gas pattern. Gas is seen within multiple nondilated and mildly dilated loops small bowel. Gas and fecal residue are seen in normal caliber large bowel. There is no obvious free intraperitoneal gas on limited evaluation. No suspect calcification, organomegaly or soft tissue mass is seen. There is excreted urinary contrast within the urinarybladder. Impression: 1. Gaseous distention of the stomach which is nonspecific and could be relatedto gastroparesis, now with obstruction, aerophagia. 2. Nonspecific bowel gas pattern without evidence of obstruction 3. No other significant radiographic abnormality. Report Dictated on Workstation: [id number] --- Final --- Dictating Physician: MD BARRAGAN HARLAN Signed Date and Time: 09/18/20209:48 am Signed by: MD BARRAGAN HARLAN Transcribed Date and Time: 09/18/2020 10:25 Ct Abdomen Pelvis W Contrast Result Date: 09/17/2020 Patient Name: WILL JACINTO ---CT--- Exam Date/Time 09/17/202022:15:[address] Abdomen/Pelvis w/ IV Contrast (IV Onl Ordering Physician ART OWEN Accession Number [id number] CPT4 Codes 53994 (CT Abdomen/Pelvis w/ IV Contrast (IV Onl), Q9967 (CT ISOVUE 370MG/ML&[id number]&ML&1) Reason For Exam abd pain/tenderness Report CT ABDOMEN AND PELVIS CLINICAL INDICATION: abd pain/tenderness TECHNIQUE: CT scan of the abdomen and pelvis with IV contrast. Multiplanar reformations. COMPARISON: 06/25/2018 FINDINGS: Right middle lobe lung nodule measures 3.2 mm. This area was not included on the prior scan. Lung bases otherwise clear. No free air seen. Diffuse hepatic steatosis. Normal gallbladder and biliary tree. Spleen shows no significant abnormality. Adrenal glands show no significant abnormality. Kidneys show no significant abnormality. Pancreas shows no significant abnormality. Abdominal aorta is nonaneurysmal. No bowel obstruction. Appendix is not seen. Uterus is enlarged, likely related to fibroids, but new since the previous study. No ureteral calculus seen on either side. Moderate distention of the stomach with fluid and gas. Mildly prominent small bowel loops also filled with gas, potentially an ileus. IMPRESSION: 1. Enlarged uterus likely relates to fibroids, new since the previous study. 2. Diffuse hepatic steatosis. 3. Right middle lobe nodule. No suspicious morphology. Fleischner Society guidelines indicate that for solitary or multiple nodules less than 6 mm in average cross- sectional size in a low risk patient need no specific follow-up. However, a 12 month follow-up can be considered if nodule morphology is suspicious or nodule is in an upper lobe. In a high risk patient with solitary or multiple nodules less than 6 mm in average cross-sectional size, recommendation is for optional CT follow-up in 12 months. 4. Moderate distention of the stomach with fluid and gas with gas present throughoutnumerous mildly prominent small bowel loops, consider possible ileus. 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) Bipolar 1 disorder (HCC) Blood circulation, collateral Cellulitis chronic L lower leg Depression Diabetes mellitus (HCC) Type II, on insulin Disease of blood and blood forming organ Endometrial hyperplasia Hx of blood clots RLE prior to amputation Hyperlipidemia Hypertension Lymphedema 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 No pertinent family history. Social History: Social History Tobacco Use Smoking status: Never Smoker Smokeless tobacco: Never Used Substance Use Topics Alcohol use: No Drug use: Never Portions of the information within this encounter were entered using an electronic dictation system. Best attempts were made to edit/proofread the information prior to note completion. Despite the review of information, some errors may remain. If there are questions related to the information contained within the note please contact the signing physician directly. I spent 15 minutes with the pt which involved more than 51% of the time in coordination of care, medical evaluation, review of records, and/or counseling of the pt regarding his/her condition/diseasestate/prognosis on the date of this note. * Nabil Hill DO - 09/19/2020 7:51 PM EST Hospitalist Progress Note 09/19/2020 7:51 PM Subjective: Admit Date: 09/17/2020 PCP: Jared Guzman MD Interval History: pt doing ok today had EGD today had LA grade D esophagitis. Some antral erosions.Told to eat smaller meals DIET FULL LIQUID; Carb Control: 4 carb choices (60 gms)/meal Intake/Output Summary (Last 24 hours) at 09/19/20201950 Last data filed at 09/19/2020 1314 Gross per 24 hour Intake 300 ml Output Net 300 ml Medications: dextrose insulin regular human 120 Units Subcutaneous Daily before lunch insulin regular human 120 Units Subcutaneous Dinner insulin regular human 120 Units Subcutaneous QAM AC pantoprazole 40 mg Intravenous BID And sodium chloride (PF) 10 mL Intravenous BID lactobacillus 1 capsule Oral Daily ARIPiprazole 10 mg Oral Daily aspirin 81 mg Oral Daily ferrous sulfate 325 mg Oral BID WC FLUoxetine 40 mg Oral Daily furosemide 80 mg Oral Daily lisinopril 40 mg Oral Daily megestrol 80 mg Oral BID therapeutic multivitamin-minerals 1 tablet Oral Daily atorvastatin 20 mg Oral Daily vitamin C 500 mg Oral BID sodium chloride flush 10 mL Intravenous 2 times per day enoxaparin 40 mg Subcutaneous Daily sodium chloride flush 3 mL Intravenous Q8H Recent Labs 09/17/20205309/19/20 043 WBC 11.0* 8.5 HGB 11.4* 10.6* PLT 544* 519* Recent Labs 09/18/20 0543 09/18/20 1402 09/19/20 0431 NA 138 134* 131* K 5.5* 5.3* 5.8* CL 104 99 99 CO2 26 25 25 BUN 40* 35* 29* CREATININE 0.97 0.99 0.88 GLUCOSE 175* 310* 395* Recent Labs 09/17/20205309/18/20 0543 09/19/20 0431 AST 69* 74* 68* ALT 104* 104* 125* BILITOT 0.5 0.8 0.6 ALKPHOS 153* 133* 128* Troponin T: Recent Labs 09/17/202053 TROPONINI <0.012 Pro-BNP: No results for input(s): BNP in the last 72 hours. INR: No results for input(s): INR in the last 72 hours. Objective: Vitals: BP (!) 180/86 Pulse 81 Temp 97.6 F (36.4 C) (Oral) Resp 18 Ht 5' 6" (1.676 m) Wt (!) 343 lb 1.6 oz (155.6 kg) SpO2 98% BMI 55.38 kg/m General appearance: alert and cooperative with exam Lungs: clear to auscultation bilaterally Heart: regular rate and rhythm, S1, S2 normal, no murmur, click, rub or gallop Abdomen: soft, non-tender; bowel sounds normal; no masses, no organomegaly Extremities: extremities normal, atraumatic, no cyanosis or edema Neurologic: No obvious focal neurologic deficits. Assessment and Plan: 1. Ileus 2. Esophagitis 3. DM poorly controlled 4. Morbid obesity Cont small portions at one time Check KUB tomorrow Cont ppi Advance Directive: Full Code DVT prophylaxis with enoxaparin 40 mg sub-Q daily. Discharge planning: snf Active Problems: Ileus (HCC) Resolved Problems: * No resolved hospital problems. * NABIL HILL DO * Nixon Julio RN - 09/19/2020 1:15 PM EST POST ENDOSCOPY PROCEDURE TRANSFER REPORT Procedure completed: EGD Findings:Esophagitis Specimens obtained: Biopsies Medications administered: Propofol 200mg Versed 2mg, Ketamine 20mg Additional Info: Blood sugar 400 pre procedure. For additional Questions please call Endoscopy at [phone]. Thank You! * Asuncion Garibay DO - 09/19/2020 8:42 AM EST Department of Internal Medicine Division of Endocrinology, Diabetes, & Metabolism Endocrinology Progress Note Patient Name: Will Jacinto : 1965 AGE: 54 y.o. Room/Bed: [facility]/268 Admission Date: 09/17/2020 7:46 PM Consult Date: 09/18/20 Visit Date: 09/18/2020 Reason for Endocrine Consult: DM mgmt Provider/Team Requesting Consult: Joann PCP: Jared Guzman MD Outpt District Sales Coordinator: yes, JEROME Lee/Kedar ASSESSMENT: T2DM uncontrolled with hyperglycemia Insulin resistance Body mass index is 58.11 kg/m . Morbid obesity Right AKA PLAN: The inpt antihyperglycemic regimen will be as follows: U500 pen 120/120/120 Inpt GMF glucose goal 150. Inpt ICU glucose goal 150-180. Outpt goal A1C = 7%. Insulin is necessary for ongoing mgmt. FSBS to occur qAC/HS/PRN for s/s of hyper-/hypoglycemia. FSBS data will be used to determine the next steps in antihyperglycemic medication titration duringhospital stay. If hypoglycemia were to occur it should be treated per hospital protocol. Diet recommendation: carb controlled 60 gram limit no juice w/ trays District Sales Coordinator On-Call: AGAPITO Preferred Method of Communication/Reaching: [employer]ario. The above physician should be paged w/ questions/concerns about items being managed by Endocrinology Team. If there are any questions or concerns related to the info in this CONSULTATION please page the vp organizational development consultant rn directly. On-Call information can be found [facility] the [facility] Directory. We can also be reached by [employer] communication system. We appreciate the opportunity to participate in this pt's ongoing medical care. ANTICIPATED ENDOCRINE HOME GOING RECOMMENDATIONS: Optimized for Discharge from Endocrine standpoint: No Home Going Endocrine Rx Recommendations-- TBD U500 pen doses Outpt Follow Up-- TBD Appointment request sent to Endo office Staff: No SUBJECTIVE/HPI: CHIEF COMPLAINT: Abdominal Pain Type of DM: 2 Onset of DM: unclear Home DM Medication Regimen: U500 pen 280/280/280 DM control (last A1c/glucose data): Lab Results Component Value Date LABA1C 9.9 08/23/2020 Lab Results Component Value Date EAG 240 06/16/2019 Remains hyperglycemic. appetite poor. Limited diet. Review of Systems All other systems reviewed and are negative. Inpt ROS: [] MALCOLM [] diaphoresis [] tremor [] CP [] chest pressure [] palpitation [] SOB [x] Abd pain -- says w/o change. [] Nausea [] Emesis [] Other: (Legend: [x] if present; [] if not present) OBJECTIVE: Vitals: 09/18/20 1111 09/18/20 1118 09/18/20 1529 09/18/202030 BP: 135/73 (!) 151/86 (!) 141/84 Pulse: 82 78 97 Resp: Temp: 97.3 F (36.3 C) 98.3 F (36.8 C) 98.4 F (36.9 C) TempSrc: Temporal Temporal Temporal SpO2: 98% 100% 94% Weight: Height: 5' 6" (1.676 m) Physical Exam Vitals signs reviewed. Constitutional: General: He is not in acute distress. Appearance: He is well-developed. He is obese. He is ill-appearing. He is not toxic-appearing or diaphoretic. Comments: HENT: Head: Normocephalic and atraumatic. Right Ear: External ear normal. Left Ear: External ear normal. Eyes: General: No scleral icterus. Right eye: No discharge. Left eye: No discharge. Conjunctiva/sclera: Conjunctivae normal. Pulmonary: Effort: Pulmonary effort is normal. No respiratory distress. Skin: General: Skin is warm. Neurological: Mental Status: He is alert and oriented to person, place, and time. Psychiatric: Mood and Affect: Mood normal. 24 hour intake/output: Intake/Output Summary (Last 24 hours) at 09/18/2020 2214 Last data filed at 09/18/2020 1619 Gross per 24 hour Intake 180 ml Output 400 ml Net -220 ml Diet: Dietary Nutrition Supplements: Clear Liquid Oral Supplement DIET CLEAR LIQUID; Carb Control: 4 carb choices (60 gms)/meal Diet NPO, After Midnight Medications (as per EMR): HomeMeds: Prior to Admission medications Medication Sig Start Date End Date Taking? Authorizing Provider cyclobenzaprine (FLEXERIL) 10 MG tablet Take 10 mg by mouth 3 times daily as needed for Muscle spasms Yes Historical Provider, traMADol (ULTRAM) 50 MG tablet Take 50 mg by mouth every 12 hours as needed for Pain. 09/09/20 09/23/20 Yes Historical Provider, tiZANidine (ZANAFLEX) 4 MG tablet Take 4 mg by mouth every 8 hours as needed Yes Historical Provider, ondansetron (ZOFRAN) 4 MG tablet Take 4 mg by mouth every 8 hours as needed for Nausea or Vomiting Yes Historical Provider, insulin regular human (HUMULIN R U-500 KWIKPEN) 500 UNIT/ML SOPN concentrated injection pen 280 units TID AC meals 08/28/20 Carito Thacker, PERSONAL CARE SERVICE PROVIDER - SHEARING [employer]ED WORKER acetaminophen (TYLENOL) 325 MG tablet Take 650 mg by mouth every 6 hours as needed for Pain Historical Provider, SALINE NASAL SPRAY NA by Nasal route as needed Historical Provider, vitamin C (ASCORBIC ACID) 500 MG tablet Take 500 mg by mouth 2 times daily Historical Provider, megestrol (MEGACE) 40 MG tablet 2 po bid Patient taking differently: Take 80 mg by mouth 2 times daily 07/26/19 Justin Walsh MD ferrous sulfate 325 (65 Fe) MG tablet Take 1 tablet by mouth daily (with breakfast) Patient taking differently: Take 325 mg by mouth 2 times daily 05/21/19 Nabil Hill DO miconazole (MICOTIN) 2 % powder Apply topically 2 times daily. 01/17/19 Dom Beltran MD mineral oil-hydrophilic petrolatum (AQUAPHOR) ointment Apply topically as needed. 01/17/19 Dom Beltran MD FLUoxetine (PROZAC) 20 MG capsule Take 40 mg by mouth daily Historical Provider, ketoconazole (NIZORAL) 2 % shampoo Apply topically daily as needed for Itching Apply topically daily as needed. Historical Provider, Multiple Vitamins-Minerals (THERAPEUTIC MULTIVITAMIN-MINERALS) tablet Take 1 tablet by mouth daily Historical Provider, Magnesium Hydroxide (MILK OF MAGNESIA CONCENTRATE PO) Take 30 mLs by mouth as needed (constipation)Historical Provider, bisacodyl (DULCOLAX) [address] 10 mg rectally daily as needed for Constipation Historical Provider, bisacodyl (DULCOLAX) 5 MG EC tablet Take 5 mg by mouth every 12 hours as needed for Constipation Historical Provider, Biotin 10 MG tablet Take 10 mg by mouth daily Historical Provider, benzonatate (TESSALON) 200 MG capsule Take 200 mg by mouth 3 times daily as needed for Cough Historical Provider, ARIPiprazole (ABILIFY) 10 MG tablet Take 10 mg by mouth daily Historical Provider, Acidophilus Lactobacillus CAPS Take 1 tablet by mouth daily Historical Provider, aspirin 81 MG tablet Take 81 mg by mouth daily Historical Provider, simvastatin (ZOCOR) 20 MG tablet Take 20 mg by mouth nightly Historical Provider, lisinopril (PRINIVIL;ZESTRIL) 40 MG tablet Take 40 mg by mouth daily Historical Provider, furosemide (LASIX) 80 MG tablet Take 80 mg by mouth daily Historical Provider, Scheduled Meds: lactobacillus 1 capsule Oral Daily ARIPiprazole 10 mg Oral Daily aspirin 81 mg Oral Daily ferrous sulfate 325 mg Oral BID WC FLUoxetine 40 mg Oral Daily furosemide 80 mg Oral Daily lisinopril 40 mg Oral Daily megestrol 80 mg Oral BID therapeutic multivitamin-minerals 1 tablet Oral Daily atorvastatin 20 mg Oral Daily vitamin C 500 mg Oral BID sodium chloride flush 10 mL Intravenous 2 times per day enoxaparin 40 mg Subcutaneous Daily [START ON 09/19/2020] insulin regular human 70 Units Subcutaneous QAM AC [START ON 09/19/2020] insulin regular human 70 Units Subcutaneous Daily before lunch insulin regular human 70 Units Subcutaneous Dinner sodium chloride flush 3 mL Intravenous Q8H Continuous Infusions: dextrose PRN Meds:benzonatate, bisacodyl, bisacodyl, cyclobenzaprine, tiZANidine, traMADol, sodium chloride flush, acetaminophen OR acetaminophen, polyethylene glycol, promethazine OR ondansetron, glucose, dextrose, glucagon (rDNA), dextrose, morphine (PF) Diagnostic Workup: I reviewed pertinent Laboratory results, Radiographic results, and Other Clinical Notes at the timeof today's encounter. BMP: Recent Labs 09/17/20205309/18/20 0543 09/18/20 1402 NA 137 138 134* K 5.7* 5.5* 5.3* CL 101 104 99 CO2 29 26 25 BUN 48* 40* 35* CREATININE 1.09 0.97 0.99 GLUCOSE 122* 175* 310* Glucose: Recent Labs 09/17/20 2244 09/18/20 0756 09/18/20 1149 09/18/20 1619 09/18/20 1624 09/18/202050 POCGLU 124* 235* 312* 341* 349* 378* HgbA1C: No results for input(s): LABA1C in the last 72 hours. Hepatic: Recent Labs 09/18/20 05 ALKPHOS 133* ALT 104* AST 74* PROT 7.8 BILITOT 0.8 LABALBU 3.9 Lipids: No results for input(s): CHOL, TRIG, HDL, LDLCALC in the last 72 hours. Invalid input(s): LDL TSH: Lab Results Component Value Date TSH 1.112 05/09/2019 T4FREE 1.15 05/09/2019 Radiology reportsas per the Radiologist Radiology: Xr Abdomen (kub) (single Ap View) Result Date: 09/18/2020 Patient Name: WILL JACINTO ---Diagnostic Radiology--- Exam Date/Time 09/18/2020 09:25:00 EST Exam CR Abdomen AP Ordering Physician DO HILL LISA Accession Number [id number] CPT4 Codes 03199 () Reason For Exam ileus Report Clinical Information: Abdominal pain and nausea. Ileus. Abdomen, KUB: A multiple AP supine radiographs of the abdomen demonstrate a distended gas filled stomach. There is a nonspecific bowel gas pattern. Gas is seen within multiple nondilated and mildly dilated loops small bowel. Gas and fecal residue are seen in normal caliber large bowel. There is no obvious free intraperitoneal gas on limited evaluation. No suspect calcification, organomegaly or soft tissue mass is seen. There is excreted urinary contrast within the urinarybladder. Impression: 1. Gaseous distention of the stomach which is nonspecific and could be relatedto gastroparesis, now with obstruction, aerophagia. 2. Nonspecific bowel gas pattern without evidence of obstruction 3. No other significant radiographic abnormality. Report Dictated on Workstation: [id number] --- Final --- Dictating Physician: MD BARRAGAN HARLAN Signed Date and Time: 09/18/20209:48 am Signed by: MD BARRAGAN HARLAN Transcribed Date and Time: 09/18/2020 10:25 Ct Abdomen Pelvis W Contrast Result Date: 09/17/2020 Patient Name: WILL JACINTO ---CT--- Exam Date/Time 09/17/202022:15:[address] Abdomen/Pelvis w/ IV Contrast (IV Onl Ordering Physician ART OWEN Accession Number [id number] CPT4 Codes 70877 (CT Abdomen/Pelvis w/ IV Contrast (IV Onl), Q9967 (CT ISOVUE 370MG/ML&[id number]&ML&1) Reason For Exam abd pain/tenderness Report CT ABDOMEN AND PELVIS CLINICAL INDICATION: abd pain/tenderness TECHNIQUE: CT scan of the abdomen and pelvis with IV contrast. Multiplanar reformations. COMPARISON: 06/25/2018 FINDINGS: Right middle lobe lung nodule measures 3.2 mm. This area was not included on the prior scan. Lung bases otherwise clear. No free air seen. Diffuse hepatic steatosis. Normal gallbladder and biliary tree. Spleen shows no significant abnormality. Adrenal glands show no significant abnormality. Kidneys show no significant abnormality. Pancreas shows no significant abnormality. Abdominal aorta is nonaneurysmal. No bowel obstruction. Appendix is not seen. Uterus is enlarged, likely related to fibroids, but new since the previous study. No ureteral calculus seen on either side. Moderate distention of the stomach with fluid and gas. Mildly prominent small bowel loops also filled with gas, potentially an ileus. IMPRESSION: 1. Enlarged uterus likely relates to fibroids, new since the previous study. 2. Diffuse hepatic steatosis. 3. Right middle lobe nodule. No suspicious morphology. Fleischner Society guidelines indicate that for solitary or multiple nodules less than 6 mm in average cross- sectional size in a low risk patient need no specific follow-up. However, a 12 month follow-up can be considered if nodule morphology is suspicious or nodule is in an upper lobe. In a high risk patient with solitary or multiple nodules less than 6 mm in average cross-sectional size, recommendation is for optional CT follow-up in 12 months. 4. Moderate distention of the stomach with fluid and gas with gas present throughoutnumerous mildly prominent small bowel loops, consider possible ileus. 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) Bipolar 1 disorder (HCC) Blood circulation, collateral Cellulitis chronic L lower leg Depression Diabetes mellitus (HCC) Type II, on insulin Disease of blood and blood forming organ Endometrial hyperplasia Hx of blood clots RLE prior to amputation Hyperlipidemia Hypertension Lymphedema 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, RLE Morbidly obese (HCC) Osteomyelitis (HCC) Osteomyelitis (HCC) 2019 RLE Schizophrenia (HCC) Sleep apnea no CPAP Venous insufficiency Past Surgical History: Past Surgical History: Procedure Laterality Date ABOVE KNEE AMPUTATION Right 06/16/2019 ABSCESS DRAINAGE Right 09/09/2018 FOOT; ACH DILATION AND CURETTAGE OF UTERUS 05/18/2019 WISDOM TOOTH EXTRACTION Allergy(ies): No Known Allergies Family History: History reviewed. No pertinent family history. Social History: Social History Tobacco Use Smoking status: Never Smoker Smokeless tobacco: Never Used Substance Use Topics Alcohol use: No Drug use: Never Portions of the information within this encounter were entered using an electronic dictation system. Best attempts were made to edit/proofread the information prior to note completion. Despite the review of information, some errors may remain. If there are questions related to the information contained within the note please contact the signing physician directly. I spent 25 minutes with the pt which involved more than 51% of the time in coordination of care, medical evaluation, review of records, and/or counseling of the pt regarding his/her condition/diseasestate/prognosis on the date of this note. * Emily Harding, MS, RD, LD - 09/18/2020 11:36 AM EST Comprehensive Nutrition Assessment Type and Reason for Visit: Initial, Positive Nutrition Screen Nutrition Recommendations/Plan: 1. Modify current CLD to include Carb Control (5 CHO) diet restriction for better Glucose control; recent BG 235. Advance diet as tolerated w/ goal of Cardiac/Carb Control (4 CHO); monitor GI for need of Low Fiber restrictions. 2. Per MNT protocol, initiate ONS Ensure Clear BID to provide 240 kcals and 8g protein per serving.Monitor intakes and labs for need to modify. 3. Please document % meal/ONS intakes under I/O flowsheet to better assess adequacy of PO. 4. Monitor nutrition status, intakes/tolerance, wt trends, labs, and fluid balance. RD will continue to follow. Nutrition Assessment: Pt hx DM, HTN, HLD, R AKA, schizophrenia, female identifying as male. Admitted from NH w/ abd pain/n/v concerning for ileus. Pt reports symptoms have been ongoing ~3 days now. Pt states he consumed 2 Dt. lemonades this AM on CLD that did not settle fantasically, however "they stayed down". Pt is unsure if he will order lunch later this afternoon or not; pt is agreeable to trialing Ensure Clear. Malnutrition Assessment: Malnutrition Status: At risk for malnutrition (Comment) Context: Acute Illness Findings of the 6 clinical characteristics of malnutrition: Energy Intake: 7 - 50% or less of estimated energy requirements for 5 or more days(x3 days) Weight Loss: No significant weight loss Body Fat Loss: No significant body fat loss Muscle Mass Loss: No significant muscle mass loss Fluid Accumulation: 1 - Mild Extremities Quality Control Inspector Heading Strength: Not Performed Estimated Daily Nutrient Needs: Energy (kcal): 7204-6077; Weight Used for Energy Requirements: Adjusted(IBW) Protein (g): 53-64; Weight Used for Protein Requirements: Adjusted(IBW) Fluid (ml/day): per MD; Nutrition Related Findings: +BS; abd round, rotund. +1 pitting edema LLE, R AKA. Tamara 14. [id number], ALT and AST elevated Wounds: None Current Nutrition Therapies: DIET CLEAR LIQUID; Anthropometric Measures: Height: 5' 6" (167.6 cm) Current Body Weight: 360 lb (163.3 kg) Admission Body Weight: 360 lb (163.3 kg) [place] Body Weight: 130 lbs; % [place] Body Weight 276.9 % BMI: 58.1 Adjusted Body Weight: 396.4; Amputation Adjusted BMI: 64 BMI Categories: Obese Class 3 (BMI 40.0 or greater) Nutrition Diagnosis: Inadequate oral intake related to altered GI function as evidenced by intake 0- 25%, NPO or clear liquid status due to medical condition, nausea, vomiting Nutrition Interventions: Food and/or Nutrient Delivery: Continue Current Diet, Start Oral Nutrition Supplement Nutrition Education/Counseling: No recommendation at this time Coordination of Nutrition Care: Continue to monitor while inpatient Goals: Pt to consume and tolerate >50% of meals and ONS Nutrition Monitoring and Evaluation: Behavioral-Environmental Outcomes: None Identified Food/Nutrient Intake Outcomes: Diet Advancement/Tolerance, Food and Nutrient Intake, Supplement Intake Physical Signs/Symptoms Outcomes: Biochemical Data, GI Status, Nausea or Vomiting, Fluid Status or Edema, Nutrition Focused Physical Findings, Skin, Weight Discharge Planning: Too soon to determine Contact: [phone] * Carito Ruelas, PT - 09/18/2020 10:15 AM EST Physical Therapy Facility/Department: [facility] Initial Assessment NAME: Will Jacinto : 1965 Date of Service: 09/18/2020 Having reviewed the treatment plan and goals for this patient, I certify that the plan of care below is medically necessary and appropriate. Discharge Recommendations: ECF with PT PT Equipment Recommendations Equipment Needed: No Assessment Body structures, Functions, Activity limitations: Decreased functional mobility ;Decreased strength;Decreased safe awareness;Decreased balance;Increased pain Assessment: Pt presents with decreased functional mobility, requiring assist for bed mobility and transfers. Pt unable to attempt stand pivot transfer this date secondary to increased pain. Pt has decreased balance and safety awareness, placing pt at risk of falls. Pt is expected to benefit from skilled therapy to address functional mobility, strength, balance, and safety awareness Prognosis: Good;Fair Decision Making: Medium Complexity History: Pt presents from ECF with abdominal pain Exam: AM-PAC Clinical Presentation: Pt presents from ECF with abdominal pain. Pt has a PMH as listed above that contributes to clinical presentation. At baseline, pt reports transferring independently to w/c. Pt can return to ECF with PT pending progress PT Education: Goals;PT Role;Plan of Care;Precautions;General Safety REQUIRES PT FOLLOW UP: Yes Activity Tolerance Activity Tolerance: Patient limited by pain Patient Diagnosis(es): The primary encounter diagnosis was Ileus (HCC). Diagnoses of Nausea and vomiting, intractability of vomiting not specified, unspecified vomiting type and Generalized abdominalpain were also pertinent to this visit. has a past medical history of Abnormal uterine bleeding (AUB), Above knee amputation of right lowerextremity (HCC), Bipolar 1 disorder (HCC), Blood circulation, collateral, Cellulitis, Depression, Diabetes mellitus (HCC), Disease of blood and blood forming organ, Endometrial hyperplasia, Hx of blood clots, Hyperlipidemia, Hypertension, Lymphedema, MDRO (multiple drug resistant organisms) resistance, Morbidly obese (HCC), Osteomyelitis (HCC), Osteomyelitis (HCC), Schizophrenia (HCC), Sleep apnea, and Venous insufficiency. 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 Restrictions Restrictions/Precautions Restrictions/Precautions: General Precautions, Fall Risk(Jamilah DA SILVA, identifies as MALE "MARIA LUISA", tele, obese) Vision/Hearing Vision: Within Functional Limits Hearing: Within functional limits Subjective General Chart Reviewed: Yes Patient assessed for rehabilitation services?: Yes General Comment Comments: Pt goes by "Maria Luisa" Subjective Subjective: Pt is agreeable to therapy Pain Screening Patient Currently in Pain: Yes Pain Assessment Pain Assessment: 0-10 Pain Level: 10 Pain Type: Acute pain Pain Location: Abdomen Social/Functional History Social/Functional History Lives With: Other (comment) Type of Home: Facility([facility]) Home Layout: One level Bathroom Shower/Tub: Shower chair with back, Walk-in shower Bathroom Toilet: Handicap height Bathroom Equipment: Grab bars in shower, Grab bars around toilet, Shower chair Bathroom Accessibility: Wheelchair accessible Home Equipment: Rolling walker, Wheelchair-manual Receives Help From: brand attendant ADL Assistance: Needs assistance(assist for toileting and all ADLs (A x 1)) Homemaking Responsibilities: No Ambulation Assistance: Needs assistance(transfers only, wc mob) Transfer Assistance: Needs assistance(at FWW to w/c) Active Instructional Media Services Technician: No Patient's Instructional Media Services Technician Info: facility, [facility] transport Additional Comments: pt states staff assist with all ADLs. Pt transfers at FWW to w/c then transfers at grab bar to commode with staff to assist with clothing management. Cognition Cognition Overall Cognitive Status: WFL Objective Observation/Palpation Observation: R AKA, obese AROM RLE (degrees) RLE General AROM: AKA AROM LLE (degrees) LLE AROM : WFL Strength RLE Comment: NT Strength LLE Comment: observed functionally Bed mobility Supine to Sit: Maximum assistance(assist with LE, pt pulled up on therapist, pt holding breath entire time despite cueing to breathe) Sit to Supine: Moderate assistance Scooting: Moderate assistance(pt pulled on therapist to scoot EOB) Comment: denies dizziness Transfers Sit to Stand: Contact guard assistance(to FWW with bed elevated) Stand to sit: Contact guard assistance Comment: denies dizziness Ambulation Ambulation?: No(pt non-ambulatory at baseline) Stairs/Curb Stairs?: No Balance Posture: Fair Sitting - Static: Fair;+ Sitting - Dynamic: Fair Standing - Static: Fair Standing - Dynamic: (unable to assess) Plan Plan Times per week: 5 visits Times per day: Daily Current Treatment Recommendations: Strengthening, Balance Training, Functional Mobility Training, Transfer Training, Home Exercise Program, Safety Education & Training, Patient/Caregiver Education & Training, Equipment Evaluation, Education, & procurement, Positioning Plan Comment: Goals and/or treatment plan were established in collaboration with patient Safety Devices Type of devices: All fall risk precautions in place, Call light within reach, Gait belt, Patient atrisk for falls, Left in bed, Nurse notified OutComes Score [facility] Mobility Inpatient How much difficulty turning over in bed?: A Lot How much difficulty sitting down on / standing up from a chair with arms?: A Little How much difficulty moving from lying on back to sitting on side of bed?: A Lot How much help from another person moving to and from a bed to a chair?: Total How much help from another person needed to walk in hospital room?: Total How much help from another person for climbing 3-5 steps with a railing?: Total [facility] Inpatient Mobility Raw Score : 10 [facility] Inpatient T-Scale Score : 32.29 Mobility Inpatient CMS 0-100% Score: 76.75 Mobility Inpatient CMS G-Code Modifier : CL AM-PAC Score AM-PAC Inpatient Mobility Raw Score : 10 (09/18/20951) AM-[facility] Inpatient T-Scale Score : 32.29 (09/18/20951) Mobility Inpatient CMS 0-100% Score: 76.75 (09/18/20951) Mobility Inpatient CMS G-Code Modifier : CL (09/18/20951) Goals Short term goals Time Frame for Short term goals: 5 visits Short term goal 1: Pt will complete 2-3 sets/10 reps of LE exercises to improve LE strength Short term goal 2: Pt will complete supine<->sit at min A to improve bed mobility Short term goal 3: Pt will complete sit<->stand with bariatric FWW at supervision in preparation for mobility Short term goal 4: Pt will complete stand pivot transfers at SBA to improve functional mobility Patient Goals Patient goals : pt did not state Therapy Time Individual Concurrent Group Co-treatment Time In 0932(co-eval with OT) Time Out 0942 Minutes 10 Carito Ruelas, PT, DPT * Althea Hancock, OT - 09/18/2020 10:12 AM EST Occupational Therapy Occupational Therapy Initial Assessment Date: 09/18/2020 Patient Name: Will Jacinto : 1965 Having reviewed the treatment plan and goals for this patient, I certify that the plan below is medically necessary and appropriate. Date of Service: 09/18/2020 Discharge Recommendations: ECF with OT OT Equipment Recommendations Equipment Needed: No Assessment Performance deficits / Impairments: Decreased ADL status;Decreased strength;Decreased endurance;Decreased balance;Decreased posture Assessment: Pt was previously at [facility] and assisted x 1 for ADL routine. He is able to transfer from bed to w/c with FWW and assist x 1 at facility. He states for toileting they pull his pants down buthe completes a SPT with help of the grab bars. Pt participated in OT Assessment with difficulty completing bed mobility and limited by pain, fatigue and weakness. He is at risk for falls and further decline, and expected to benefit from continued OT POC during this admission. Return to ECF with OT recommended at this time, however will continue to assess pending progress. Prognosis: Fair Decision Making: Medium Complexity History: Pt is 54yo male presenting with ileus. PMH listed and significant for R AKA. Exam: AM PAC Assistance / Modification: MOD to MAX ASSIST OT Education: OT Role;Plan of Care Barriers to Learning: none noted REQUIRES OT FOLLOW UP: Yes Activity Tolerance Activity Tolerance: Patient limited by fatigue Safety Devices Safety Devices in place: Yes Type of devices: Call light within reach;All fall risk precautions in place;Gait belt;Patient at risk for falls;Left in bed;Nurse notified Patient Diagnosis(es): The primary encounter diagnosis was Ileus (HCC). Diagnoses of Nausea and vomiting, intractability of vomiting not specified, unspecified vomiting type and Generalized abdominalpain were also pertinent to this visit. has a past medical history of Abnormal uterine bleeding (AUB), Above knee amputation of right lowerextremity (HCC), Bipolar 1 disorder (HCC), Blood circulation, collateral, Cellulitis, Depression, Diabetes mellitus (HCC), Disease of blood and blood forming organ, Endometrial hyperplasia, Hx of blood clots, Hyperlipidemia, Hypertension, Lymphedema, MDRO (multiple drug resistant organisms) resistance, Morbidly obese (HCC), Osteomyelitis (HCC), Osteomyelitis (HCC), Schizophrenia (HCC), Sleep apnea, and Venous insufficiency. 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 Restrictions Restrictions/Precautions Restrictions/Precautions: General Precautions, Fall Risk(Jamilah DA SILVA, identifies as MALE "MARIA LUISA", tele, obese) Subjective General Chart Reviewed: Yes Patient assessed for rehabilitation services?: Yes Additional Pertinent Hx: Jamilah DA SILVA Jun 2019 Family / Caregiver Present: No Subjective Subjective: pleasant and cooperative, c/o abdominal pain prior to mobility and pain in R residual limb during bed mobility (repositioned for comfort) General Comment Comments: OK to see per RN Patient Currently in Pain: Yes Pain Assessment Pain Assessment: 0-10 Pain Level: 10 Pain Type: Acute pain Pain Location: Abdomen Pain Descriptors: Aching Vital Signs Patient Currently in Pain: Yes Social/Functional History Social/Functional History Lives With: Other (comment) Type of Home: [facility]) Home Layout: One level Bathroom Shower/Tub: Shower chair with back, Walk-in shower Bathroom Toilet: Handicap height Bathroom Equipment: Grab bars in shower, Grab bars around toilet, Shower chair Bathroom Accessibility: Wheelchair accessible Home Equipment: Rolling walker, Wheelchair-manual Receives Help From: brand attendant ADL Assistance: Needs assistance(assist for toileting and all ADLs (A x 1)) Homemaking Responsibilities: No Ambulation Assistance: Needs assistance(transfers only, wc mob) Transfer Assistance: Needs assistance(at FWW to w/c) Active Instructional Media Services Technician: No Patient's Instructional Media Services Technician Info: facility, [facility] transport Additional Comments: pt states staff assist with all ADLs. Pt transfers at FWW to w/c then transfers at grab bar to commode with staff to assist with clothing management. Objective Vision: Within Functional Limits Hearing: Within functional limits Orientation Overall Orientation Status: Within Normal Limits Observation/Palpation Posture: Fair Observation: R AKA, obese Balance Sitting Balance: Stand by assistance Standing Balance: Stand by assistance(at FWW) ADL Feeding: Stand by assistance Grooming: Stand by assistance UE Bathing: Minimal assistance LE Bathing: Maximum assistance UE Dressing: Minimal assistance LE Dressing: Maximum assistance Toileting: Maximum assistance Additional Comments: pt requires assist for ADLs at baseline, however is now limited d/t abdominal pain and overall weakness. Pt expressed interest in acute OT to improve overall activity tolerance and strength for daily routine. Coordination Movements Are Fluid And Coordinated: Yes Bed mobility Supine to Sit: Maximum assistance(assist for LE and pt pulled up on therapist into sitting, holdingbreath throught despite cues for breathing) Sit to Supine: Moderate assistance(use of hospital bed features and assist for B LE) Scooting: Moderate assistance(pulled on therapist to scoot forward sitting at EOB) Comment: denies dizziness Transfers Sit to stand: Stand by assistance Stand to sit: Stand by assistance Transfer Comments: at FWW with bed height slightly elevated Vision - Basic Assessment Prior Vision: No visual deficits Cognition Overall Cognitive Status: WFL Sensation Overall Sensation Status: WFL(no complaints) LUE AROM (degrees) LUE AROM : WFL RUE AROM (degrees) RUE AROM : WFL LUE Strength Gross LUE Strength: WFL RUE Strength Gross RUE Strength: WFL Plan Plan Times per week: 4 visits Current Treatment Recommendations: Strengthening, Balance Training, Endurance Training, Wheelchair Mobility Training, Safety Education & Training, Equipment Evaluation, Education, & procurement, Self-Care / ADL, Positioning Plan Comment: Goals and POC were established in collaboration with patient. AM-PAC Score AM-PAC Inpatient Daily Activity Raw Score: 16 (09/18/20952) AM-PAC Inpatient ADL T-Scale Score : 35.96 (09/18/20952) ADL Inpatient CMS 0-100% Score: 53.32 (09/18/20952) ADL Inpatient CMS G-Code Modifier : CK (09/18/20952) Goals Short term goals Time Frame for Short term goals: 4 visits Short term goal 1: Pt will aaron B UE ther exe to promote strength and activity tolerance for daily routine. Short term goal 2: Pt will complete BSC transfer at FWW with MIN A. Short term goal 3: Pt will aaron >10 min of functional EOB sitting at MOD INDEP during ADL routine. Short term goal 4: Pt will complete toileting tasks at MOD ASSIST. Patient Goals Patient goals : improve activity tolerance and strength for ADL routine Therapy Time Individual Concurrent Group Co-treatment Time In 0932(co eval with PT) Time Out 0942 Minutes 10 Althea Hancock OT documented in this encounter* Priyank Rios MD - 11/28/2020 1:05 PM EST Cardiology Progress Note Patient Name: Will Jacinto Patient Age: 55 y.o. DIAGNOSIS Patient Active Problem List Diagnosis Cellulitis Chronic osteomyelitis (HCC) Uncontrolled type 2 diabetes mellitus with complication (HCC) Type 2 diabetes mellitus with hyperglycemia, with long-term current use of insulin (HCC) Class 3 severe obesity due to excess calories with serious comorbidity and body mass index (BMI) of50.0 to 59.9 in adult (HCC) 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 (HCC) Cellulitis and abscess of lower extremity Hyperandrogenism Chronic acquired lymphedema Left leg cellulitis Class 3 severe obesity due to excess calories with serious comorbidity and body mass index (BMI) of60.0 to 69.9 in adult (HCC) Post-menopausal bleeding Hyperglycemia Diabetic foot infection (HCC) S/P AKA (above knee amputation) unilateral, right (HCC) Morbid obesity (HCC) Ileus (HCC) Nausea and vomiting Esophagitis Hypertension Diabetic hyperosmolar non-ketotic state (HCC) Endometrial hyperplasia Endometrial carcinoma (HCC) Complex endometrial hyperplasia with atypia Thickened endometrium Diabetic gastroparesis associated with type 2 diabetes mellitus (HCC) LAB Lab Results Component Value Date NA 134 11/28/2020 K 4.3 11/28/2020 CL 105 11/28/2020 CO2 25 11/28/2020 BUN 10 11/28/2020 CREATININE 0.66 11/28/2020 GLUCOSE 100 11/28/2020 CALCIUM 8.7 11/28/2020 Lab Results Component Value Date WBC 7.6 11/25/2020 HGB 10.0 (L) 11/25/2020 HCT 29.4 (L) 11/25/2020 MCV 87.7 11/25/2020 PLT 352 11/25/2020 Lab Results Component Value Date TROPONINI <0.012 11/26/2020 Lab Results Component Value Date TSH 2.356 11/26/2020 Lab Results Component Value Date LABA1C 10.0 (A) 11/23/2020 Lab Results Component Value Date EAG 240 11/23/2020 Recent Labs 11/28/20 0322 ALKPHOS 77 ALT 30 AST 26 BILITOT 0.6 LABALBU 3.3* VITALS BP (!) 163/72 Pulse 70 Temp 97.2 F (36.2 C) (Temporal) Resp 18 Ht 5' 6" (1.676 m) Wt (!) 317 lb 4.8 oz (143.9 kg) SpO2 92% BMI 51.21 kg/m I&O No intake/output data recorded. SUBJECTIVE: No Cp Today. No H/o cad, OBJECTIVE: BP (!) 163/72 Pulse 70 Temp 97.2 F (36.2 C) (Temporal) Resp 18 Ht 5' 6" (1.676 m) Wt (!) 317 lb 4.8 oz (143.9 kg) SpO2 92% BMI 51.21 kg/m 10 systems reviewed as seen below Neck: Neck JVP 0, No carotid bruits, thyroid not enlarged Cardiovascular system: NSR, Short systolic murmur, no gallop Chest: normal breath sounds Abdomen: Abdomen soft/non-tender, no organomegaly, bowel sounds present Extremities: No edema, no varicosity Endocrine : Hypothyroidism No Diabites No GI system : GIB No Renal : CKD No KILNMAN : CVA/TIA No Musculoskeletal system : DJD No CARDIAC TESTING EKG: nsr Echo: s/opt/ Troponin: Stress Test: Cardiac Cath: IMPRESSION : Type 2 diabetes mellitus with hyperglycemia, with long-term current use of insulin (HCC) 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 (HCC) Hypertension Diabetic hyperosmolar non-ketotic state (HCC) Chronic osteomyelitis (HCC) Chronic acquired lymphedema S/P AKA (above knee amputation) unilateral, right PLAN : 1. Aggressive secondary risk factor management. 2. Treat underlying disease drivers. 3. No acute cardiac issues on ECG or enzymes. Hemodynamics Stable. 4. Adj. bp meds Priyank Rios MD * Ema Escobedo, PERSONAL CARE SERVICE PROVIDER - KILNMAN - 11/28/2020 10:52 AM EST Department of Internal Medicine Division of Endocrinology, Diabetes, & Metabolism Endocrinology Progress Note Patient Name: Will Jacinto : 1965 AGE: 55 y.o. Room/Bed: 1714/082944 Admission Date: 11/22/2020 5:55 PM Consult Date: 11/24/20 Visit Date: 11/28/2020 Reason for Endocrine Consult: "out of control diabetic" Provider/Team Requesting Consult: Joann PCP: Jared Guzman MD Outpt District Sales Coordinator: yes, [facility] [place] ASSESSMENT: T2DM uncontrolled w/ hyperglycemia, on long-term insulin Insulin resistance Morbid obesity Body mass index is 51.21 kg/m . S/p Right AKA Polyneuropathy Diabetic gastroparesis PLAN: - continue U-500 doses to 80-55-75 while on clears - continue Regular sliding scale insulin 3 times a day with meals - monitor blood glucose QAC and HS - carb control diet if possible - management of hypoglycemia per protocol ANTICIPATED ENDOCRINE HOME GOING RECOMMENDATIONS: Optimized for Discharge from Endocrine standpoint: Yes Home Going Endocrine Rx Recommendations-- Resume outpt pre-admit U500 pen doses (160-110-150 units TID) Outpt Follow Up-- [facility] [place]. Lee Appointment request sent to Endo office Staff: No, has appt in January SUBJECTIVE/HPI: CHIEF COMPLAINT: Abdominal Pain Type of DM: 2 Onset of DM: unclear Home DM Medication Regimen: U500 pen 160/110/150 TID; given via ([facility]) DM control (last A1c/glucose data): Lab Results Component Value Date LABA1C 10.0 (A) 11/23/2020 Lab Results Component Value Date EAG 240 11/23/2020 Pt is s/p D&C and IUD placement. GI started on reglan, is also on PPI. C/o abd tenderness, no nausea. Is now on GI soft diet, had BF sandwich, eggs and OJ this am. Denies any n/v. Still c/o abd tenderness-improved Denies CP/SOB. Received lower dose of U500 last night. BG 215 this am. Plan for d[facility] later today. ROS negative except for those mentioned in HPI. OBJECTIVE: Vitals: 11/27/20 1757 11/27/20 1944 11/27/20 2230 11/28/20 0805 BP: (!) 159/78 (!) 176/77 (!) 140/68 (!) 163/72 Pulse: 82 86 69 70 Resp: 18 18 Temp: 98.3 F (36.8 C) 98.7 F (37.1 C) 97.2 F (36.2 C) TempSrc: Temporal Temporal Temporal SpO2: 94% 96% 92% Weight: Height: Physical Exam Vitals signs reviewed. Constitutional: General: He is not in acute distress. Appearance: He is well-developed. He is obese. Eyes: General: No scleral icterus. Conjunctiva/sclera: Conjunctivae normal. Neck: Musculoskeletal: Neck supple. Thyroid: No thyromegaly. Cardiovascular: Rate and Rhythm: Normal rate and regular rhythm. Pulses: Normal pulses. Heart sounds: Normal heart sounds. No murmur. Pulmonary: Effort: Pulmonary effort is normal. No respiratory distress. Breath sounds: No wheezing, rhonchi or rales. Abdominal: General: There is distension. Palpations: Abdomen is soft. There is no hepatomegaly, splenomegaly or mass. Tenderness: There is abdominal tenderness. There is no guarding or rebound. Musculoskeletal: General: Swelling and deformity present. No tenderness. Comments: R AKA Lymphadenopathy: Cervical: No cervical adenopathy. Skin: General: Skin is warm and dry. Findings: Rash present. No erythema. Neurological: General: No focal deficit present. Mental Status: He is alert. Motor: No tremor. Psychiatric: Mood and Affect: Mood normal. Affect is flat. Speech: Speech normal. Behavior: Behavior is cooperative. 24 hour intake/output: No intake or output data in the 24 hours ending 11/28/20 1153 Diet: Dietary Nutrition Supplements: Diabetic Oral Supplement DIET GI SOFT; Medications (as per EMR): HomeMeds: Prior to Admission medications Medication Sig Start Date End Date Taking? Authorizing Provider insulin regular human (HUMULIN R U-500 KWIKPEN) 500 UNIT/ML SOPN concentrated injection pen Inject 80 Units into the skin every morning (before breakfast) 11/29/20 Yes Michael Martin MD insulin regular human (HUMULIN R U-500 KWIKPEN) 500 UNIT/ML SOPN concentrated injection pen Inject 55 Units into the skin daily (before lunch) 11/28/20 Yes Michael Martin MD insulin regular human (HUMULIN R U-500 KWIKPEN) 500 UNIT/ML SOPN concentrated injection pen Inject 75 Units into the skin Daily with supper 11/28/20 Yes Michael Martin MD metoprolol tartrate (LOPRESSOR) 25 MG tablet Take 1 tablet by mouth 2 times daily 11/28/20 Yes Michael Martin MD polyethylene glycol (GLYCOLAX) 17 g packet Take 17 g by mouth daily 11/29/20 12/29/20 Yes Michael Martin MD metoclopramide (REGLAN) 10 MG tablet Take 1 tablet by mouth 4 times daily (before meals and nightly) 11/28/20 Yes Michael Martin MD acetaminophen (TYLENOL) 325 MG tablet Take 2 tablets by mouth every 4 hours as needed for Pain 11/25/20 Yes Art Stapleton MD atorvastatin (LIPITOR) 10 MG tablet Take 1 tablet by mouth daily 11/26/20 Yes Art Stapleton MD megestrol (MEGACE) 40 MG tablet Take 2 tablets by mouth 2 times daily 11/25/20 Yes Art Stapleton MD dilTIAZem (CARDIZEM CD) 180 MG extended release capsule Take 1 capsule by mouth daily 11/26/20 Yes Art Stapleton MD miconazole (MICOTIN) 2 % powder Apply topically 2 times daily. 11/25/20 Yes Art Stapleton MD bisacodyl (DULCOLAX) 5 MG EC tablet Take 1 tablet by mouth every 12 hours as needed for Constipation 11/25/20 Yes Art Stapleton MD metoclopramide (REGLAN) 5 MG/ML injection Infuse 2 mLs intravenously every 6 hours 11/25/20 12/25/20 Yes Art Stapleton MD pantoprazole (PROTONIX) 40 MG tablet Take 1 tablet by mouth every morning (before breakfast) 11/26/20 Yes Art Stapleton MD FLUoxetine (PROZAC) 20 MG capsule Take 40 mg by mouth daily Yes Historical Provider, Magnesium Hydroxide (MILK OF MAGNESIA CONCENTRATE PO) Take 30 mLs by mouth as needed (constipation)Yes Historical Provider, ARIPiprazole (ABILIFY) 10 MG tablet Take 10 mg by mouth daily Yes Historical Provider, lisinopril (PRINIVIL;ZESTRIL) 40 MG tablet Take 40 mg by mouth daily Yes Historical Provider, Scheduled Meds: metoclopramide 10 mg Oral 4x Daily AC & HS enoxaparin 40 mg Subcutaneous Daily polyethylene glycol 17 g Oral Daily metoprolol tartrate 25 mg Oral BID insulin regular human 80 Units Subcutaneous QAM AC insulin regular human 55 Units Subcutaneous Daily before lunch insulin regular human 75 Units Subcutaneous Dinner ARIPiprazole 10 mg Oral Daily aspirin 81 mg Oral Daily dilTIAZem 180 mg Oral Daily FLUoxetine 40 mg Oral Daily lisinopril 40 mg Oral Daily miconazole Topical BID pantoprazole 40 mg Oral QAM AC atorvastatin 10 mg Oral Daily insulin regular 0-16 Units Subcutaneous TID AC Continuous Infusions: sodium chloride 125 mL/hr at 11/28/20 0517 dextrose PRN Meds:labetalol, ALPRAZolam, stomahesive in petrolatum, nitroGLYCERIN, acetaminophen, bisacodyl,glucose, dextrose, glucagon (rDNA), dextrose, ondansetron Diagnostic Workup: I reviewed pertinent Laboratory results, Radiographic results, and Other Clinical Notes at the timeof today's encounter. BMP: Recent Labs 11/26/20 0000 11/27/20 0316 11/28/20 0322 NA 130* 132* 134* K 3.9 4.2 4.3 CL 98 104 105 CO2 25 21* 25 BUN 10 13 10 CREATININE 0.63 0.57 0.66 GLUCOSE 188* 225* 100 Glucose: Recent Labs 11/26/20 1714 11/26/20 2126 11/27/20 0737 11/27/20 1036 11/27/20 1736 01/20/210711/28/20 0757 11/28/20 1018 POCGLU 383* 254* 223* 205* 134* 91 215* 166* HgbA1C: No results for input(s): LABA1C in the last 72 hours. Hepatic: Recent Labs 11/28/20 0322 ALKPHOS 77 ALT 30 AST 26 PROT 6.0* BILITOT 0.6 LABALBU 3.3* Lipids: No results for input(s): CHOL, TRIG, HDL, LDLCALC in the last 72 hours. Invalid input(s): LDL TSH: Lab Results Component Value Date TSH 2.356 11/26/2020 T4FREE 1.15 05/09/2019 Radiology reportsas per the Radiologist Radiology: Xr Chest Portable Result Date: 11/22/2020 Patient Name: WILL JACINTO Diagnostic Radiology ACCESSION EXAM DATE/TIME PROCEDURE ORDERING PROVIDER [id number] 11/22/2020 18:30 EST CR Chest Portable [id number] NOLASCO CPT code 20885 Reason For Exam (CR Chest Portable) SOB Report Reason for examination: Shortness of breath. Single portable chest is obtained at 1822 hours. Comparison is dated 06/14/2019. The trachea is midline. The mediastinal and cardiac silhouettes are stable. The depth of inspiration is slightly shallow. There is crowding of the central bronchovascular lung markings. No confluent infiltrates, significant pleural effusion or pneumothorax is seen. Report Dictated on --- Final --- Dictating Physician: MD GRIFFITHS LAUREN B Signed Date and Time: 11/22/2020 6:32 pm Signed by: MD GRIFFITHS LAUREN B Transcribed Date and Time: 11/22/2020 6:33 Ct Abdomen Pelvis W Contrast Result Date: 11/22/2020 Patient Name: WILL JACINTO Computed Tomography ACCESSION EXAM DATE/TIME PROCEDURE ORDERING PROVIDER [id number] 11/22/2020 19:[address] Abdomen/Pelvis w/ IV JOEL HUDSON Contrast (IV Onl CPT code 91675 Q9967 Reason For Exam (CT Abdomen/Pelvis w/ IVContrast (IV Onl) abd pain Report EXAM: CT Abdomen and pelvis INDICATION: Abdominal pain COMPARISON: 09/17/2020 TECHNIQUE: CT of the abdomen and pelvis was performed with contrast (75 mL of Isovue 370 was injected intravenously). Coronal and sagittal reformats were obtained. FINDINGS: LOWER CHEST: Stable appearance of a 3 mm right middle lobe nodule. ABDOMEN: LIVER: There is relative hypoattenuation of liver parenchyma as compared to the spleen, consistent with hepatic steatosis. BILE DUCTS: normal caliber. GALLBLADDER: No calcified gallstones. Normal caliber wall. PANCREAS: within normal limits. SPLEEN: within normal limits. ADRENALS: within normal limits. KIDNEYS: within normal limits. PELVIS: REPRODUCTIVE ORGANS: no pelvic masses. URETERS: within normal limits. BLADDER: within normal limits. BOWEL: There is marked gastric distention. The small and large bowel are otherwise normal in caliber without evidence of obstruction. Appendix not well visualized, however, there are no rheumatoid changes in the right lower quadrant to suggest acute appendicitis. No enlarged mesenteric lymph nodes. PERITONEUM: no ascites or free air, no fluid collection. VESSELS: Within normal limits. LYMPHNODES: No enlarged nodes. RETROPERITONEUM: within normal limits. ABDOMINAL WALL: within normal limits. BONES: Multilevel degenerative changes of the imaged spine IMPRESSION: Computed Tomography Report 1. Moderate gastric distention. Remainder of bowel is normal in caliber without evidence of obstruction. 2. Hepatic steatosis. 3. Stable 3 mm right middle lobe pulmonary nodule. 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) Bipolar 1 disorder (HCC) Blood circulation, collateral Cellulitis chronic L lower leg Depression Diabetes mellitus (HCC) Type II, on insulin Disease of blood and blood forming organ Endometrial carcinoma (HCC) 11/25/2020 Endometrial hyperplasia Hx of blood clots RLE prior to amputation Hyperlipidemia Hypertension Lymphedema 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 No pertinent family history. Social History: Social History Tobacco Use Smoking status: Never Smoker Smokeless tobacco: Never Used Substance Use Topics Alcohol use: No Drug use: Never I spent 25 minutes with the pt which involved more than 51% of the time in coordination of care, medical evaluation, review of records, and/or counseling of the pt regarding his/her condition/diseasestate/prognosis on the date of this note. Associated attestation - Анна Villela MD - 11/28/2020 4:33 PM EST I performed a history and physical examination of the patient and discussed the management with theNP/resident. I reviewed the patient's chart including pertinent history, medications, labs, radiology, and other reports. I reviewed the SUPER[employer]OR [employer]/resident's note and agree with the documented findings and plan of care (with summary/modifications noted if any). Pt doing better. Tolerating full meals. Diet has been advanced. No n/v. No CP/SOB. BG improved. Last BG 100-166 today. BP 128/79 Pulse 75 Temp 97.8 F (36.6 C) (Oral) Resp 18 Ht 5' 6" (1.676 m) Wt (!) 317 lb 4.8 oz (143.9 kg) SpO2 95% BMI 51.21 kg/m Obese, awake, alert, not in distress, RRR, no murmur, intact pulses, clear breath sounds, no rales,abdomen distended, soft, nontender, +R AKA, +edema, flat affect. Dx: T2DM uncontrolled w/ hyperglycemia, on long-term insulin Insulin resistance Morbid obesity Body mass index is 51.62 kg/m . Gastroparesis S/p Right AKA Polyneuropathy S/p D&C and IUD placement Plan: - continue current U-500 TID regimen - discontinue R SSI to reduce risk of hypoglycemia - advance diet as tolerated - closely monitor BG; adjust doses as necessary - management of hypoglycemia per protocol - counseled pt on DM management - FU with Endocrinology outpatient - plan to DC back to [place] [facility] [place] * Michael Martin MD - 11/28/2020 9:03 AM EST Hospitalist Progress Note 11/28/2020 9:03 AM Subjective: Admit Date: 11/22/2020 PCP: Jared Guzman MD Interval History: No overnight issues. Dietary Nutrition Supplements: Diabetic Oral Supplement DIET GI SOFT; No intake/output data recorded. Patient Vitals for the past 96 hrs (Last 3 readings): Weight 11/27/20 0628 (!) 317 lb 4.8 oz (143.9 kg) 11/25/20 0600 (!) 319 lb 12.8 oz (145.1 kg) Medications: sodium chloride 125 mL/hr at 11/28/20 0517 dextrose enoxaparin 40 mg Subcutaneous Daily polyethylene glycol 17 g Oral Daily metoprolol tartrate 25 mg Oral BID insulin regular human 80 Units Subcutaneous QAM AC insulin regular human 55 Units Subcutaneous Daily before lunch insulin regular human 75 Units Subcutaneous Dinner metoclopramide 10 mg Intravenous Q6H ARIPiprazole 10 mg Oral Daily aspirin 81 mg Oral Daily dilTIAZem 180 mg Oral Daily FLUoxetine 40 mg Oral Daily lisinopril 40 mg Oral Daily miconazole Topical BID pantoprazole 40 mg Oral QAM AC atorvastatin 10 mg Oral Daily insulin regular 0-16 Units Subcutaneous TID AC No results for input(s): WBC, HGB, PLT in the last 72 hours. Recent Labs 11/26/20 0000 11/27/20 0316 11/28/20 0322 NA 130* 132* 134* K 3.9 4.2 4.3 CL 98 104 105 CO2 25 21* 25 BUN 10 13 10 CREATININE 0.63 0.57 0.66 GLUCOSE 188* 225* 100 Recent Labs 11/26/20 0000 11/27/20 0316 11/28/20 0322 AST 29 26 26 ALT 33 34 30 BILITOT 0.5 0.6 0.6 ALKPHOS 88 97 77 Lab Results Component Value Date TRIG 190 08/23/2020 HDL 31 08/23/2020 LDLCALC 56 08/23/2020 CHOL 125 08/23/2020 No results found for: PHART, PO2ART, JOI8MDC No results for input(s): INR in the last 72 hours. Recent Labs 11/26/20 192 TROPONINI <0.012 No results for input(s): DDIMER in the last 72 hours. No components found for: HGBA1C Lab Results Component Value Date TSH 2.356 11/26/2020 Urine Culture: Results for orders placed or performed during the hospital encounter of 09/06/18 Urine Culture Specimen: Urine, clean catch Result Value Ref Range Urine Culture, Routine Proteus mirabilis (A) Urine Culture, Routine >100,000 CFU/ml Urine Culture, Routine Enterococcus faecium (A) Urine Culture, Routine 10,000-50,000 CFU/ml Susceptibility testing performed only upon request for cultures with multiple types of microorganisms below 100,000 CFU/ml. Susceptibility Proteus mirabilis - BACTERIAL SUSCEPTIBILITY PANEL BY TULIO amikacin <=2 Sensitive amoxicillin-clavulanate 8 Sensitive ampicillin >=32 Resistant ampicillin-sulbactam 8 Sensitive aztreonam <=1 Sensitive ceFAZolin 8 Resistant cefepime <=1 Sensitive cefTRIAXone <=1 Sensitive ciprofloxacin >=4 Resistant ertapenem <=0.5 Sensitive gentamicin <=1 Sensitive levofloxacin >=8 Resistant meropenem <=0.25 Sensitive nitrofurantoin Resistant piperacillin-tazobactam <=4 Sensitive trimethoprim-sulfamethoxazole >=320 Resistant Objective: Vitals: BP (!) 163/72 Pulse 70 Temp 97.2 F (36.2 C) (Temporal) Resp 18 Ht 5' 6" (1.676 m) Wt (!) 317 lb 4.8 oz (143.9 kg) SpO2 92% BMI 51.21 kg/m Pulse Ox: SpO2 Av.8 % Min: 92 % Max: 97 % Supplemental O2: General appearance: alert and cooperative with exam Lungs: clear to auscultation bilaterally Heart: regular rate and rhythm, S1, S2 normal, no murmur, click, rub or gallop, no chest wall tenderness Abdomen: soft, non-tender; bowel sounds normal; no masses, no organomegaly Extremities: Chronic LLE edema, + venous stasis changes, s/p R AKA Neurologic: No obvious focal neurologic deficits. Assessment and Plan: 1. Abdominal pain, diabetic gastroparesis 2. Insulin-dependent diabetes with severe hyperglycemia 3. Chest pain, atypical -resolved. 4. Dysfunctional uterine bleeding in transgender male, hx of endometrial hyperplasia 5. Morbid obesity, obstructive sleep apnea on no mask 6. S/p RLE AKA 7. HTN 8. HPL 9. Depression/schizophrenia/bipolar type 1 10. Hx of chronic LLE cellulitis/lymphedema 11. Debility Plan: Pt had BMs. abd pain better. Advance diet to GI soft Seen by Video Manager and had hysteroscopy with biopsy done KUB improving. Follow today. Cont laxative regimen. Monitor KUB Seen by GI -started reglan Cont PPI Endocrinology following for hyperglycemia Pt denied any chest pain. Troponin negative. Seen by cardiology Added PT/OT Discharge planning if tolerating diet. Michael Martin MD Rounding Hospitalist * Emily Harding MS, RD, LD - 11/27/2020 4:16 PM EST Comprehensive Nutrition Assessment Type and Reason for Visit: Initial, NPO/Clear Liquid Nutrition Recommendations/Plan: 1. Continue current FLD and advanced as tolerated w/ goal of Cardiac/Carb Control (4CHO), monitor GI function for need of Low Fiber restrictions additionally. 2. Per MNT protocol, initiate ONS Ensure HP once daily to provide 160 kcals and 16g protein. Monitor intakes for need to modify. 3. Please document % meal intakes under I/O flowsheet. 4. Currently documented wt is significantly variable from pt stated wts; monitor accuracy and fluctuations of wt. 5. Monitor nutrition status, intakes/tolerance, wt trends, labs, and fluid balance. RD will continue to follow. Nutrition Assessment: Pt hx DM, HTN, HLD, schizophrenia, endometrial cancer, R AKA 06/2019, and transgener female to male.Transferred to [facility] for gynecology oncology evaluation for vaginal bleeding in setting of known complex atypical hyperplasia. Underwent uncomplicated PEUA, D&C, and IUD placement. Awaiting pathology results. Pt remains on FLD w/ concern for ileus. Pt reports he consumed 2 cream of tomato soups and 2 skim milks today and is feeling nauseous. RD briefly educated pt on Low Fat/Low Fiber recommendations at this time and recommended small frequent meals/snacks. Pt expresses understanding. Pt would like to try Vanilla Ensure while PO intake is compromised. 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 Pt reports his wt fluctuates frequently, stating UBW 350#, and pt last weighed 353# in nursing facility within past month Malnutrition Assessment: Malnutrition Status: Insufficient data Estimated Daily Nutrient Needs: Energy (kcal): 4433-1782; Weight Used for Energy Requirements: Adjusted(IBW) Protein (g): 53-69; Weight Used for Protein Requirements: Adjusted Fluid (ml/day): per MD; Nutrition Related Findings: +BS. +I&O, +1 LLE edema, R AKA. Tamara 16. Glucose 205, A1C 10 11/23 Wounds: (black L great toe) Current Nutrition Therapies: DIET FULL LIQUID; Anthropometric Measures: Height: 5' 6" (167.6 cm) Current Body Weight: 317 lb (143.8 kg)(11/27; however pt reports last known wt 353# within past month) Admission Body Weight: 353 lb (160.1 kg)(stated) Usual Body Weight: 350 lb (158.8 kg)(per pt; however 330# per Epic 09/17, 340# 01/02) [place] Body Weight: 130 lbs; % [place] Body Weight 243.8 % BMI: 51.2 Adjusted Body Weight: 349; Amputation Adjusted BMI: 56.4 BMI Categories: Obese Class 3 (BMI 40.0 or greater) Nutrition Diagnosis: Inadequate oral intake related to altered GI function as evidenced by nausea(FLD) Nutrition Interventions: Food and/or Nutrient Delivery: Continue Current Diet, Start Oral Nutrition Supplement Nutrition Education/Counseling: Education not appropriate Coordination of Nutrition Care: Continue to monitor while inpatient Goals: Pt to consume and tolerate >50% of meals Nutrition Monitoring and Evaluation: Behavioral-Environmental Outcomes: Readiness for Change, Knowledge or Skill Food/Nutrient Intake Outcomes: Diet Advancement/Tolerance, Food and Nutrient Intake, Supplement Intake Physical Signs/Symptoms Outcomes: Biochemical Data, GI Status, Nausea or Vomiting, Fluid Status or Edema, Nutrition Focused Physical Findings, Skin, Weight Discharge Planning: Too soon to determine Contact: [phone] * Ema Escobedo APRN - [facility] - 11/27/2020 1:41 PM EST Department of Internal Medicine Division of Endocrinology, Diabetes, & Metabolism Endocrinology Progress Note Patient Name: Will Jacinto : 1965 AGE: 55 y.o. Room/Bed: 1714/992058 Admission Date: 11/22/2020 5:55 PM Consult Date: 11/24/20 Visit Date: 11/27/2020 Reason for Endocrine Consult: "out of control diabetic" Provider/Team Requesting Consult: Joann PCP: Jared Guzman MD Outpt District Sales Coordinator: yes, [facility] ASSESSMENT: T2DM uncontrolled w/ hyperglycemia, on long-term insulin Insulin resistance Morbid obesity Body mass index is 51.21 kg/m . Gastroparesis S/p Right AKA Polyneuropathy PLAN: - Pt currently on full liquid diet. - continue U-500 doses to 80-55-75 while on clears - continue Regular sliding scale insulin 3 times a day with meals - monitor blood glucose QAC and HS - carb control diet if possible - management of hypoglycemia per protocol - counseled patient regarding DM management - discussed insulin regimen - TSH was WNL. ANTICIPATED ENDOCRINE HOME GOING RECOMMENDATIONS: Optimized for Discharge from Endocrine standpoint: Yes Home Going Endocrine Rx Recommendations-- Resume outpt pre-admit U500 pen doses (160-110-150 units TID) Outpt Follow Up-- [facility] [place] Dr. Lee Appointment request sent to Endo office Staff: No, has appt in January SUBJECTIVE/HPI: CHIEF COMPLAINT: Abdominal Pain Type of DM: 2 Onset of DM: unclear Home DM Medication Regimen: U500 pen 160/110/150 TID; given via ([facility]) DM control (last A1c/glucose data): Lab Results Component Value Date LABA1C 10.0 (A) 11/23/2020 Lab Results Component Value Date EAG 240 11/23/2020 Pt is now s/p D&C and IUD placement. C/o abd tenderness, nausea. No BM today. Had soup and milk this am. Denies CP/SOB. BG 205 this am. Pt continues to be on full liquid currently. Plan for d/c to [facility] once stable. ROS negative except for those mentioned in HPI. OBJECTIVE: Vitals: 11/27/20 0628 11/27/20 0741 11/27/20 0912 11/27/20 1144 BP: (!) 158/74 (!) 150/82 130/63 Pulse: 69 81 72 Resp: 18 16 18 Temp: 96.5 F (35.8 C) 96.7 F (35.9 C) 98 F (36.7 C) TempSrc: Temporal Temporal Temporal SpO2: 97% 97% Weight: (!) 317 lb 4.8 oz (143.9 kg) Height: Physical Exam Vitals signs reviewed. Constitutional: General: He is not in acute distress. Appearance: He is well-developed. He is obese. Eyes: General: No scleral icterus. Conjunctiva/sclera: Conjunctivae normal. Neck: Musculoskeletal: Neck supple. Thyroid: No thyromegaly. Cardiovascular: Rate and Rhythm: Normal rate and regular rhythm. Pulses: Normal pulses. Heart sounds: Normal heart sounds. No murmur. Pulmonary: Effort: Pulmonary effort is normal. No respiratory distress. Breath sounds: No wheezing, rhonchi or rales. Abdominal: General: There is distension. Palpations: Abdomen is soft. There is no hepatomegaly, splenomegaly or mass. Tenderness: There is abdominal tenderness. There is no guarding or rebound. Musculoskeletal: General: Swelling and deformity present. No tenderness. Comments: R AKA Lymphadenopathy: Cervical: No cervical adenopathy. Skin: General: Skin is warm and dry. Findings: Rash present. No erythema. Comments: No open skin lesions Neurological: General: No focal deficit present. Mental Status: He is alert. Motor: No tremor. Psychiatric: Mood and Affect: Mood normal. Affect is flat. Speech: Speech normal. Behavior: Behavior is cooperative. 24 hour intake/output: No intake or output data in the 24 hours ending 11/27/20 1341 Diet: DIET FULL LIQUID; Medications (as per EMR): HomeMeds: Prior to Admission medications Medication Sig Start Date End Date Taking? Authorizing Provider acetaminophen (TYLENOL) 325 MG tablet Take 2 tablets by mouth every 4 hours as needed for Pain 11/25/20 Yes Art Stapleton MD atorvastatin (LIPITOR) 10 MG tablet Take 1 tablet by mouth daily 11/26/20 Yes Art Stapleton MD megestrol (MEGACE) 40 MG tablet Take 2 tablets by mouth 2 times daily 11/25/20 Yes Art Stapleton MD dilTIAZem (CARDIZEM CD) 180 MG extended release capsule Take 1 capsule by mouth daily 11/26/20 Yes Art Stapleton MD miconazole (MICOTIN) 2 % powder Apply topically 2 times daily. 11/25/20 Yes Art Stapleton MD bisacodyl (DULCOLAX) 5 MG EC tablet Take 1 tablet by mouth every 12 hours as needed for Constipation 11/25/20 Yes Art Stapleton MD metoclopramide (REGLAN) 5 MG/ML injection Infuse 2 mLs intravenously every 6 hours 11/25/20 12/25/20 Yes Art Stapleton MD pantoprazole (PROTONIX) 40 MG tablet Take 1 tablet by mouth every morning (before breakfast) 11/26/20 Yes Art Stapleton MD insulin regular human (HUMULIN R U-500 KWIKPEN) 500 UNIT/ML SOPN concentrated injection pen 160 units before breakfast, 110 units before lunch, 150 units before dinner 09/30/20 Yes Анна Villela MD FLUoxetine (PROZAC) 20 MG capsule Take 40 mg by mouth daily Yes Historical Provider, Magnesium Hydroxide (MILK OF MAGNESIA CONCENTRATE PO) Take 30 mLs by mouth as needed (constipation)Yes Historical Provider, ARIPiprazole (ABILIFY) 10 MG tablet Take 10 mg by mouth daily Yes Historical Provider, lisinopril (PRINIVIL;ZESTRIL) 40 MG tablet Take 40 mg by mouth daily Yes Historical Provider, Scheduled Meds: enoxaparin 40 mg Subcutaneous Daily polyethylene glycol 17 g Oral Daily metoprolol tartrate 25 mg Oral BID insulin regular human 80 Units Subcutaneous QAM AC insulin regular human 55 Units Subcutaneous Daily before lunch insulin regular human 75 Units Subcutaneous Dinner metoclopramide 10 mg Intravenous Q6H ARIPiprazole 10 mg Oral Daily aspirin 81 mg Oral Daily dilTIAZem 180 mg Oral Daily FLUoxetine 40 mg Oral Daily lisinopril 40 mg Oral Daily miconazole Topical BID pantoprazole 40 mg Oral QAM AC atorvastatin 10 mg Oral Daily insulin regular 0-16 Units Subcutaneous TID AC Continuous Infusions: sodium chloride 125 mL/hr at 11/25/20 1138 dextrose PRN Meds:labetalol, ALPRAZolam, stomahesive in petrolatum, nitroGLYCERIN, acetaminophen, bisacodyl,glucose, dextrose, glucagon (rDNA), dextrose, ondansetron Diagnostic Workup: I reviewed pertinent Laboratory results, Radiographic results, and Other Clinical Notes at the timeof today's encounter. BMP: Recent Labs 11/25/20 0434 11/26/20 0000 11/27/20 0316 NA 136 130* 132* K 3.8 3.9 4.2 CL 103 98 104 CO2 28 25 21* BUN 11 10 13 CREATININE 0.76 0.63 0.57 GLUCOSE 107* 188* 225* Glucose: Recent Labs 11/25/20 2212 11/26/20 0637 11/26/20 0812 11/26/20 1332 11/26/20 1714 11/26/20 2126 11/27/20 0737 11/27/20 1036 POCGLU 168* 169* 206* >450* 383* 254* 223* 205* HgbA1C: No results for input(s): LABA1C in the last 72 hours. Hepatic: Recent Labs 11/27/20 0316 ALKPHOS 97 ALT 34 AST 26 PROT 6.1* BILITOT 0.6 LABALBU 3.3* Lipids: No results for input(s): CHOL, TRIG, HDL, LDLCALC in the last 72 hours. Invalid input(s): LDL TSH: Lab Results Component Value Date TSH 2.356 11/26/2020 T4FREE 1.15 05/09/2019 Radiology reportsas per the Radiologist Radiology: Xr Chest Portable Result Date: 11/22/2020 Patient Name: WILL JACINTO Diagnostic Radiology ACCESSION EXAM DATE/TIME PROCEDURE ORDERING PROVIDER [id number] 11/22/2020 18:30 EST CR Chest Portable [id number] NOLASCO CPT code 17188 Reason For Exam (CR Chest Portable) SOB Report Reason for examination: Shortness of breath. Single portable chest is obtained at 1822 hours. Comparison is dated 06/14/2019. The trachea is midline. The mediastinal and cardiac silhouettes are stable. The depth of inspiration is slightly shallow. There is crowding of the central bronchovascular lung markings. No confluent infiltrates, significant pleural effusion or pneumothorax is seen. Report Dictated on --- Final --- Dictating Physician: MD GRIFFITHS LAUREN B Signed Date and Time: 11/22/2020 6:32 pm Signed by: MD GRIFFITHS LAUREN B Transcribed Date and Time: 11/22/2020 6:33 Ct Abdomen Pelvis W Contrast Result Date: 11/22/2020 Patient Name: WILL JACINTO Computed Tomography ACCESSION EXAM DATE/TIME PROCEDURE ORDERING PROVIDER [id number] 11/22/2020 19:[address] Abdomen/Pelvis w/ IV [id number] JOEL PHAM Contrast (IV Onl CPT code 05016 Q9967 Reason For Exam (CT Abdomen/Pelvis w/ IVContrast (IV Onl) abd pain Report EXAM: CT Abdomen and pelvis INDICATION: Abdominal pain COMPARISON: 09/17/2020 TECHNIQUE: CT of the abdomen and pelvis was performed with contrast (75 mL of Isovue 370 was injected intravenously). Coronal and sagittal reformats were obtained. FINDINGS: LOWER CHEST: Stable appearance of a 3 mm right middle lobe nodule. ABDOMEN: LIVER: There is relative hypoattenuation of liver parenchyma as compared to the spleen, consistent with hepatic steatosis. BILE DUCTS: normal caliber. GALLBLADDER: No calcified gallstones. Normal caliber wall. PANCREAS: within normal limits. SPLEEN: within normal limits. ADRENALS: within normal limits. KIDNEYS: within normal limits. PELVIS: REPRODUCTIVE ORGANS: no pelvic masses. URETERS: within normal limits. BLADDER: within normal limits. BOWEL: There is marked gastric distention. The small and large bowel are otherwise normal in caliber without evidence of obstruction. Appendix not well visualized, however, there are no rheumatoid changes in the right lower quadrant to suggest acute appendicitis. No enlarged mesenteric lymph nodes. PERITONEUM: no ascites or free air, no fluid collection. VESSELS: Within normal limits. LYMPHNODES: No enlarged nodes. RETROPERITONEUM: within normal limits. ABDOMINAL WALL: within normal limits. BONES: Multilevel degenerative changes of the imaged spine IMPRESSION: Computed Tomography Report 1. Moderate gastric distention. Remainder of bowel is normal in caliber without evidence of obstruction. 2. Hepatic steatosis. 3. Stable 3 mm right middle lobe pulmonary nodule. 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) Bipolar 1 disorder (HCC) Blood circulation, collateral Cellulitis chronic L lower leg Depression Diabetes mellitus (HCC) Type II, on insulin Disease of blood and blood forming organ Endometrial carcinoma (HCC) 11/25/2020 Endometrial hyperplasia Hx of blood clots RLE prior to amputation Hyperlipidemia Hypertension Lymphedema 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 No pertinent family history. Social History: Social History Tobacco Use Smoking status: Never Smoker Smokeless tobacco: Never Used Substance Use Topics Alcohol use: No Drug use: Never I spent 25 minutes with the pt which involved more than 51% of the time in coordination of care, medical evaluation, review of records, and/or counseling of the pt regarding his/her condition/diseasestate/prognosis on the date of this note. Associated attestation - Анна Villela MD - 11/27/2020 5:23 PM EST I performed a history and physical examination of the patient and discussed the management with theNP/resident. I reviewed the patient's chart including pertinent history, medications, labs, radiology, and other reports. I reviewed the SUPERVISOR TICKET SALES/resident's note and agree with the documented findings and plan of care (with summary/modifications noted if any). Pt complaining of epigastric pain. No n/v. Had 2 skim milks for lunch. On FLD. No CP/SOB. BG improved. Last BG 205. BP 130/63 Pulse 72 Temp 98 F (36.7 C) (Temporal) Resp 18 Ht 5' 6" (1.676 m) Wt (!) 317 lb4.8 oz (143.9 kg) SpO2 97% BMI 51.21 kg/m Obese, awake, alert, not in distress, RRR, no murmur, intact pulses, clear breath sounds, no rales,abdomen distended, soft, tender, +R AKA, +edema, flat affect. Dx: T2DM uncontrolled w/ hyperglycemia, on long-term insulin Insulin resistance Morbid obesity Body mass index is 51.62 kg/m . Gastroparesis S/p Right AKA Polyneuropathy S/p D&C and IUD placement Plan: - continue U-500 TID regimen and Reg SSI TID - advance diet as tolerated - closely monitor BG; adjust doses as necessary - management of hypoglycemia per protocol - counseled pt on DM management - FU with Endocrinology outpatient - plan to DC back to [facility] * Morenita Steele V., PT - 11/27/2020 9:48 AM EST Physical Therapy Facility/Department: [facility] Initial Assessment NAME: Will Jacinto : 1965 Date of Service: 11/27/2020 Discharge Recommendations: ECF with PT Assessment Body structures, Functions, Activity limitations: Decreased functional mobility ;Decreased ADL status;Decreased ROM;Decreased strength;Decreased safe awareness;Decreased balance Assessment: pt admitted with hyperglycemia. pt max assist of 2 for bed mobility and dep assist. recommend ECF with PT. Treatment Diagnosis: pt admitted with hyperglycemia Decision Making: Low Complexity REQUIRES PT FOLLOW UP: Yes Patient Diagnosis(es): The primary encounter diagnosis was Hypoglycemia. A diagnosis of Nausea was also pertinent to this visit. has a past medical history of Abnormal uterine bleeding (AUB), Above knee amputation of right lowerextremity (HCC), Bipolar 1 disorder (HCC), Blood circulation, collateral, Cellulitis, Depression, Diabetes mellitus (HCC), Disease of blood and blood forming organ, Endometrial carcinoma (HCC), Endome trial hyperplasia, Hx of blood clots, Hyperlipidemia, Hypertension, Lymphedema, MDRO (multiple drugresistant organisms) resistance, Morbidly obese (HCC), Osteomyelitis (HCC), Osteomyelitis (HCC), Schizophrenia (HCC), Sleep apnea, and Venous insufficiency. has a past surgical history that includes Abscess Drainage (Right, 09/09/2018); [place] tooth extraction; Dilation and curettage of uterus (05/18/2019); above knee amputation (Right, 06/16/2019); and Endoscopy, colon, diagnostic (09/19/2020). Restrictions Restrictions/Precautions Restrictions/Precautions: Fall Risk, Up as Tolerated Required Braces or Orthoses?: No Position Activity Restriction Other position/activity restrictions: IV Subjective General Chart Reviewed: Yes Patient assessed for rehabilitation services?: Yes Family / Caregiver Present: No Diagnosis: admitted with hyperglycemia Subjective Subjective: pt in bed. agreeable to therapy Pain Screening Patient Currently in Pain: Denies Orientation Orientation Orientation Level: Oriented to person Social/Functional History Social/Functional History Lives With: Alone Type of Home: Facility Home Layout: One level Home Equipment: Wheelchair-electric Receives Help From: Family, brand attendant ADL Assistance: Needs assistance Homemaking Assistance: Needs assistance Homemaking Responsibilities: No Active Instructional Media Services Technician: No Patient's Instructional Media Services Technician Info: facility, [facility] transport Additional Comments: from facility, assist with ADLs, uses electric wheelchair for mobility, stand pivot transfer with FWW TAPROOM ATTENDANT Cognition Cognition Arousal/Alertness: Appropriate responses to stimuli Following Commands: Follows one step commands consistently Attention Span: Appears intact Memory: Appears intact Objective Observation/Palpation Observation: on RA upon entry, R AKA AROM RLE (degrees) RLE General AROM: R AKA - hip flexion to 90 degrees limited body habitus AROM LLE (degrees) LLE General AROM: hip flexion to 90 degrees limited body habitus, knee 50% observed through functional mobility Strength RLE Comment: R AKA, hip flexion 2+/5 Strength LLE Comment: 2+/5 Bed mobility Rolling to Left: Maximum assistance;2 Person assistance Rolling to Right: Maximum assistance;2 Person assistance Supine to Sit: Maximum assistance;2 Person assistance Sit to Supine: Maximum assistance;2 Person assistance Scooting: Dependent/Total(to EOB and to HOB) Transfers Comment: NT - secondary to patient fatigue and weakness Balance Sitting - Static: Poor Comments: poor initial sitting balance - significant posterior lean. once positioned at EOB improved to supervision. Plan Plan Times per week: 2-3x Plan weeks: 2 weeks Current Treatment Recommendations: Strengthening, Balance Training, Functional Mobility Training, Transfer Training, ADL/Self-care Training, Equipment Evaluation, Education, & procurement, Patient/Caregiver Education & Training, Safety Education & Training, Home Exercise Program Safety Devices Type of devices: Call light within reach, Patient at risk for falls, Left in bed AM-PAC Score AM-[facility] Inpatient Mobility Raw Score : 6 (11/27/20941) AM-[facility] Inpatient T-Scale Score : 23.55 (11/27/20941) Mobility Inpatient CMS 0-100% Score: 100 (11/27/20941) Mobility Inpatient CMS G-Code Modifier : CN (11/27/20941) Goals Short term goals Time Frame for Short term goals: 2 weeks Short term goal 1: min assist supine <-> sit Short term goal 2: min assist sit <-> stand Short term goal 3: min assist bed <-> chair Patient Goals Patient goals : to get back Therapy Time Individual Concurrent Group Co-treatment Time In 0910 Time Out 0923 Minutes 13 Patient's Physical Therapy Plan of Care supervision is transferred to [facility] Re[facility] Department Physical Therapist. Goals and/or treatment plan was established in collaboration with patient/family/other representatives. This physical therapist wore N95 mask, googles/mask & gloves during therapy session. Morenita Steele PT, DPT * Michael Martin MD - 11/27/2020 9:48 AM EST Hospitalist Progress Note 11/27/2020 9:48 AM Subjective: Admit Date: 11/22/2020 PCP: Jared Guzman MD Interval History: No overnight issues. DIET FULL LIQUID; I/O last 3 completed shifts: In: 400 [P.O.:100; I.V.:300] Out: - Patient Vitals for the past 96 hrs (Last 3 readings): Weight 11/27/20 0628 (!) 317 lb 4.8 oz (143.9 kg) 11/25/20 0600 (!) 319 lb 12.8 oz (145.1 kg) 11/24/20 0630 (!) 323 lb 3.2 oz (146.6 kg) Medications: sodium chloride 125 mL/hr at 11/25/20 1138 dextrose enoxaparin 40 mg Subcutaneous Daily polyethylene glycol 17 g Oral Daily metoprolol tartrate 25 mg Oral BID insulin regular human 80 Units Subcutaneous QAM AC insulin regular human 55 Units Subcutaneous Daily before lunch insulin regular human 75 Units Subcutaneous Dinner metoclopramide 10 mg Intravenous Q6H ARIPiprazole 10 mg Oral Daily aspirin 81 mg Oral Daily dilTIAZem 180 mg Oral Daily FLUoxetine 40 mg Oral Daily lisinopril 40 mg Oral Daily miconazole Topical BID pantoprazole 40 mg Oral QAM AC atorvastatin 10 mg Oral Daily insulin regular 0-16 Units Subcutaneous TID AC Recent Labs 11/25/20 0434 WBC 7.6 HGB 10.0* PLT 352 Recent Labs 11/25/20 0434 11/26/20 0000 11/27/20 0316 NA 136 130* 132* K 3.8 3.9 4.2 CL 103 98 104 CO2 28 25 21* BUN 11 10 13 CREATININE 0.76 0.63 0.57 GLUCOSE 107* 188* 225* Recent Labs 11/25/20 0434 11/26/20 0000 11/27/20 0316 AST 26 29 26 ALT 31 33 34 BILITOT 0.4 0.5 0.6 ALKPHOS 83 88 97 Lab Results Component Value Date TRIG 190 08/23/2020 HDL 31 08/23/2020 LDLCALC 56 08/23/2020 CHOL 125 08/23/2020 No results found for: PHART, PO2ART, SVE9YDD No results for input(s): INR in the last 72 hours. Recent Labs 11/24/20 1701 11/24/20 2328 11/26/20 1927 TROPONINI <0.012 <0.012 <0.012 No results for input(s): DDIMER in the last 72 hours. No components found for: HGBA1C Lab Results Component Value Date TSH 2.356 11/26/2020 Urine Culture: Results for orders placed or performed during the hospital encounter of 09/06/18 Urine Culture Specimen: Urine, clean catch Result Value Ref Range Urine Culture, Routine Proteus mirabilis (A) Urine Culture, Routine >100,000 CFU/ml Urine Culture, Routine Enterococcus faecium (A) Urine Culture, Routine 10,000-50,000 CFU/ml Susceptibility testing performed only upon request for cultures with multiple types of microorganisms below 100,000 CFU/ml. Susceptibility Proteus mirabilis - BACTERIAL SUSCEPTIBILITY PANEL BY TULIO amikacin <=2 Sensitive amoxicillin-clavulanate 8 Sensitive ampicillin >=32 Resistant ampicillin-sulbactam 8 Sensitive aztreonam <=1 Sensitive ceFAZolin 8 Resistant cefepime <=1 Sensitive cefTRIAXone <=1 Sensitive ciprofloxacin >=4 Resistant ertapenem <=0.5 Sensitive gentamicin <=1 Sensitive levofloxacin >=8 Resistant meropenem <=0.25 Sensitive nitrofurantoin Resistant piperacillin-tazobactam <=4 Sensitive trimethoprim-sulfamethoxazole >=320 Resistant Objective: Vitals: BP (!) 150/82 Pulse 81 Temp 96.7 F (35.9 C) (Temporal) Resp 16 Ht 5' 6" (1.676 m) Wt (!) 317 lb 4.8 oz (143.9 kg) SpO2 97% BMI 51.21 kg/m Pulse Ox: SpO2 Av.8 % Min: 94 % Max: 97 % Supplemental O2: General appearance: alert and cooperative with exam Lungs: clear to auscultation bilaterally Heart: regular rate and rhythm, S1, S2 normal, no murmur, click, rub or gallop, no chest wall tenderness Abdomen: soft, non-tender; bowel sounds normal; no masses, no organomegaly Extremities: Chronic LLE edema, + venous stasis changes, s/p R AKA Neurologic: No obvious focal neurologic deficits. Assessment and Plan: 1. Abdominal pain, diabetic gastroparesis 2. Insulin-dependent diabetes with severe hyperglycemia 3. Chest pain, atypical -resolved. 4. Dysfunctional uterine bleeding in transgender male, hx of endometrial hyperplasia 5. Morbid obesity, obstructive sleep apnea on no mask 6. S/p RLE AKA 7. HTN 8. HPL 9. Depression/schizophrenia/bipolar type 1 10. Hx of chronic LLE cellulitis/lymphedema 11. Debility Plan: Pt had multiple BMs this morning. Seen by Video Manager and had hysteroscopy today with biopsy done KUB showing possible ileus. Pt asking for food. Cont liquid diet for now. Added miralax. Monitor serial KUBs. Seen by GI -started reglan Cont PPI Endocrinology following for hyperglycemia Pt denied any chest pain. Troponin negative. Seen by cardiology Added PT/OT Michael Martin MD Rounding Hospitalist * Denise Ramon, OT - 11/27/2020 9:40 AM EST Occupational Therapy Occupational Therapy Initial Assessment Date: 11/27/2020 Patient Name: Will Jacinto : 1965 Date of Service: 11/27/2020 Discharge Recommendations: ECF with OT This provider wore an N95, face shield, and gloves during the treatment session. Assessment Performance deficits / Impairments: Decreased functional mobility ;Decreased balance;Decreased ADL status;Decreased endurance;Decreased high-level IADLs;Decreased strength Assessment: OT eval completed. Required two skilled therapists for pt and therapist safety. Pt admitted with hyperglycemia, now s/p hysteroscopy, dilation and curettage, intrauterine device placement. Pt with history of R AKA, with electric wheelchair at baseline for mobility. Pt max assist x2 person for bed mobility, decreased sitting balance. Pt would benefit from continued therapy. Recommend ECF with OT. Prognosis: Good Decision Making: Low Complexity OT Education: OT Role;Plan of Care REQUIRES OT FOLLOW UP: Yes Activity Tolerance Activity Tolerance: Patient Tolerated treatment well;Patient limited by fatigue Safety Devices Safety Devices in place: Yes Type of devices: Patient at risk for falls;Left in bed;Call light within reach Patient Diagnosis(es): The primary encounter diagnosis was Hypoglycemia. A diagnosis of Nausea was also pertinent to this visit. has a past medical history of Abnormal uterine bleeding (AUB), Above knee amputation of right lowerextremity (HCC), Bipolar 1 disorder (HCC), Blood circulation, collateral, Cellulitis, Depression, Diabetes mellitus (HCC), Disease of blood and blood forming organ, Endometrial carcinoma (HCC), Endome trial hyperplasia, Hx of blood clots, Hyperlipidemia, Hypertension, Lymphedema, MDRO (multiple drugresistant organisms) resistance, Morbidly obese (HCC), Osteomyelitis (HCC), Osteomyelitis (HCC), Schizophrenia (HCC), Sleep apnea, and Venous insufficiency. has a past surgical history that includes Abscess Drainage (Right, 09/09/2018); [place] tooth extraction; Dilation and curettage of uterus (05/18/2019); above knee amputation (Right, 06/16/2019); and Endoscopy, colon, diagnostic (09/19/2020). Restrictions Restrictions/Precautions Restrictions/Precautions: Fall Risk, Up as Tolerated Required Braces or Orthoses?: No Position Activity Restriction Other position/activity restrictions: IV Subjective General Chart Reviewed: Yes Patient assessed for rehabilitation services?: Yes Additional Pertinent Hx: hysteroscopy, dilation and curettage, intrauterine device placement Family / Caregiver Present: No Diagnosis: hyperglycemia Subjective Subjective: Pt supine in bed upon entry, agreeable to therapy Patient Currently in Pain: Denies Pain Assessment Pain Assessment: 0-10 Pain Level: 0 Vital Signs Temp: 96.7 F (35.9 C) Temp Source: Temporal Pulse: 81 Heart Rate Source: Monitor Resp: 16 BP: (!) 150/82 BP Location: Right Arm MAP (mmHg): 105 Patient Position: Supine Patient Currently in Pain: Denies Oxygen Therapy SpO2: 97 % O2 Device: None (Room air) Social/Functional History Social/Functional History Lives With: Alone Type of Home: Facility Home Layout: One level Home Equipment: Wheelchair-electric Receives Help From: Family, brand attendant ADL Assistance: Needs assistance Homemaking Assistance: Needs assistance Homemaking Responsibilities: No Active Instructional Media Services Technician: No Patient's Instructional Media Services Technician Info: facility, [facility] transport Additional Comments: from facility, assist with ADLs, uses electric wheelchair for mobility, stand pivot transfer with [employer]WW TAPROOM ATTENDANT Objective Vision: Within Functional Limits Hearing: Within functional limits Orientation Overall Orientation Status: Within Functional Limits Observation/Palpation Posture: Fair Observation: on RA upon entry, R AKA Balance Sitting Balance: Contact guard assistance(static:fair) ADL Additional Comments: pt with decreased sitting balance, anticipate dependent for LE dressing- pt also reports staff at facility complete LE dressing Tone RUE RUE Tone: Normotonic Tone LUE LUE Tone: Normotonic Coordination Movements Are Fluid And Coordinated: Yes Bed mobility Rolling to Left: Maximum assistance;2 Person assistance Rolling to Right: Maximum assistance;2 Person assistance Supine to Sit: Maximum assistance;2 Person assistance Sit to Supine: Maximum assistance;2 Person assistance Scooting: Dependent/Total Transfers Transfer Comments: pt declined secondary to weakness/fatigue Cognition Arousal/Alertness: Appropriate responses to stimuli Following Commands: Follows one step commands consistently Attention Span: Appears intact Memory: Appears intact Sequencing: Requires cues for some Sensation Overall Sensation Status: WFL LUE AROM (degrees) LUE AROM : WFL RUE AROM (degrees) RUE AROM : WFL LUE Strength LUE Strength Comment: grossly 4/5 RUE Strength RUE Strength Comment: grossly 4/5 Plan Plan Times per week: 3-5 Plan weeks: 2 Current Treatment Recommendations: Strengthening, Safety Education & Training, Balance Training, Patient/Caregiver Education & Training, Self-Care / ADL, Functional Mobility Training, Endurance Training, Equipment Evaluation, Education, & procurement OutComes Score [facility] Daily Activity Inpatient How much help for putting on and taking off regular lower body clothing?: Total How much help for Bathing?: A Lot How much help for Toileting?: Total How much help for putting on and taking off regular upper body clothing?: A Little How much help for taking care of personal grooming?: None How much help for eating meals?: None [facility] Inpatient Daily Activity Raw Score: 15 [facility] Inpatient ADL T-Scale Score : 34.69 ADL Inpatient CMS 0-100% Score: 56.46 ADL Inpatient CMS G-Code Modifier : CK Goals Short term goals Time Frame for Short term goals: 2 weeks Short term goal 1: LE dressing, AE PRN, mod assist Short term goal 2: Toilet transfer, min assist Short term goal 3: Toilet task, maxine-care, SBA Short term goal 4: Grooming task sitting EOB, SBA Patient Goals Patient goals : none stated Therapy Time Individual Concurrent Group Co-treatment Time In 0910 Time Out 0923 Minutes 13 Patient's Occupational Therapy Plan of Care supervision is transferred to [facility] Occupational Therapist. Goals and/or treatment plan was established in collaboration with patient/family/other representatives. Denise Ramon OTR/L * Jagdeep Grace MD - 11/27/2020 8:14 AM EST Progress Note Date:11/27/2020 Room:[address] [place] [address] Patient Name:Will Jacinto Date of :1965 Age:55 y.o. Subjective Subjective: Symptoms: Stable. (Transgender male. Biological female). Diet: Adequate intake. Activity level: Impaired due to weakness. Pain: He reports no pain. Review of Systems HENT: Positive for congestion. Eyes: Negative. Respiratory: Negative. Cardiovascular: Negative. Gastrointestinal: Negative. Genitourinary: Positive for dysuria. Musculoskeletal: Positive for arthralgias. Skin: Negative. Neurological: Negative. Psychiatric/Behavioral: Positive for behavioral problems. Objective Vitals Last 24 Hours: TEMPERATURE: Temp Av.5 F (36.4 C) Min: 96.5 F (35.8 C) Max: 98.6 F (37 C) RESPIRATIONS RANGE: Resp Av.3 Min: 15 Max: 20 PULSE OXIMETRY RANGE: SpO2 Av.8 % Min: 93 % Max: 97 % PULSE RANGE: Pulse Av.9 Min: 69 Max: 89 BLOOD PRESSURE RANGE: Systolic (24hrs), Av , Min:145 , Max:178 ; Diastolic (24hrs), Av, Min:74, Max:82 I/O (24Hr): No intake or output data in the 24 hours ending 11/27/20 0838 Objective: General Appearance: Comfortable and well-appearing. Vital signs: (most recent): Blood pressure (!) 158/74, pulse 69, temperature 96.5 F (35.8 C), temperature source Temporal, resp. rate 18, height 5' 6" (1.676 m), weight (!) 317 lb 4.8 oz (143.9 kg), SpO2 97 %. Vital signs are normal. Output: Producing urine and producing stool. HEENT: Normal HEENT exam. Lungs: Normal effort and normal respiratory rate. Breath sounds clear to auscultation. Heart: Normal rate. Regular rhythm. S1 normal and S2 normal. Positive for murmur and gallop. Abdomen: Abdomen is soft. Bowel sounds are normal. There is no abdominal tenderness. There is no mass. Extremities: Decreased range of motion. (Right AKA) Pulses: There are decreased pulses. Neurological: Patient is alert and oriented to person, place and time. Pupils: Pupils are equal, round, and reactive to light. Skin: Warm and dry. Labs/Imaging/Diagnostics Labs: CBC: Recent Labs 11/25/20433 WBC 7.6 RBC 3.35* HGB 10.0* HCT 29.4* MCV 87.7 RDW 16.1* PLT 352 CHEMISTRIES: Recent Labs 11/25/2043311/26/20 0000 11/27/20 0316 NA 136 130* 132* K 3.8 3.9 4.2 CL 103 98 104 CO2 28 25 21* BUN 11 10 13 CREATININE 0.76 0.63 0.57 GLUCOSE 107* 188* 225* PT/INR:No results for input(s): PROTIME, INR in the last 72 hours. APTT:No results for input(s): APTT in the last 72 hours. LIVER PROFILE: Recent Labs 11/25/2043311/26/20 0000 11/27/20 0316 AST 26 29 26 ALT 31 33 34 BILITOT 0.4 0.5 0.6 ALKPHOS 83 88 97 Imaging Last 24 Hours: Xr Abdomen (kub) (single Ap View) Result Date: 11/25/2020 Patient Name: WILL JACINTO Diagnostic Radiology ACCESSION EXAM DATE/TIME PROCEDURE ORDERING PROVIDER [id number] 11/25/2020 15:08 EST CR Abdomen AP Lorenzo STAPLETON MICHAEL CPT code 93846 Reason For Exam (CR Abdomen AP) abd distention Report EXAM TYPE: CR Abdomen AP EXAM DATE AND TIME: 11/25/2020 3:08 PM EST INDICATION: 55 years Female with abdominal distention COMPARISON: CT from three days ago TECHNIQUE: AP supine radiograph of the abdomen and pelvis was obtained. FINDINGS: Gaseous distention of both small bowel and large bowel loops. Limited evaluation for free air or air-fluid levels on supine-only imaging. No abnormal soft tissue calcifications are seen. Degenerative changes are seen in the visualized spine. The visualized lung bases are unremarkable. IMPRESSION: Gaseous distention of small and large bowel loops, likely due to ileus; recommend continued imaging follow-up. Report Dictated on --- Final --- Dictating Physician: MD HANNA NICHOLAS Signed Date and Time: 11/25/2020 3:29 pm Signed by: MD HANNA NICHOLAS T ranscribed Date and Time: 11/25/2020 3:31 Us Non Ob Transvaginal Result Date: 11/25/2020 Patient Name: WILL JACINTO Ultrasound ACCESSION EXAM DATE/TIME PROCEDURE ORDERING PROVIDER [id number] 11/25/2020 10:38 EST US Transvaginal MD CRAMER DIANA CHRISTINE CPT code 35268 Reason For Exam (US Transvaginal) AUB Report ULTRASOUND PELVIS: CLINICAL INDICATION: Abnormal uterine bleeding LMP: post menopausal COMPARISON: CT from 11/22/2020 TECHNIQUE: Transabdominal and transvaginal to optimally evaluate the ovaries and adnexal structures including colorflow and spectral Doppler imaging. Limited transvaginal images. FINDINGS: Uterus: Orientation: Anteverted Size: 12.8 x 6.4 x 7.8 cm Endometrium: Difficult to visualized, including limited transvaginal images, but appears heterogeneous and thickened, measuring 16 mm Mass: none Cervix: normal Neitherovary was visualized. Cul-de-sac: No free pelvic fluid IMPRESSION: 1. Endometrial thickening. Giventhe history of postmenopausal bleeding, hysteroscopy and tissue sampling is recommended as the findings could be seen in endometrial hyperplasia, polyp or neoplasm. 2. Neither ovary was visualized. Report Dictated on --- Final --- Dictating Physician: MD HANNA NICHOLAS Signed Date and Time: 11/25/2020 10:45 am Signed by: MD HANNA NICHOLAS Transcribed Date and Time: 11/25/2020 10:46 Assessment//Plan Assessment: Condition: In stable condition. Improving. (Active Problems: Hypertension>>Stable Chronic osteomyelitis (HCC) Type 2 diabetes mellitus with hyperglycemia, with long-term current use of insulin (HCC) 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 (HCC) Chronic acquired lymphedema S/P AKA (above knee amputation) unilateral, right (HCC) Diabetic hyperosmolar non-ketotic state (HCC) Endometrial hyperplasia & Endometrial carcinoma (HCC) & Complex endometrial hyperplasia with atypia & Thickened endometrium). Plan: Other transfer (see comment) (ECF). Start/continue incentive spirometry and continue respiratory treatments. Restricted diet and advance diet as tolerated. Administer medications as ordered. (Specialty Problems Cardiology Problems Hypertension >>Meds 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 (HCC) >>>Meds Reevaluate). I personally obtained the bunch and critical portions of the history and physical exam. I reviewed the labs, imaging studies, and electronic medical record. I reviewed the chart documentation, and discussed the patient with treatment team members. I have edited the note to reflect my clinical findings and my assessment and plan. SIGNATURE: Jagdeep Grace MD; FACC; FHRS; FASNC; CCDS. PATIENT NAME: Will Jacinto DATE: 11/27/2020 PAGER: [phone] * Ema Escobedo, PERSONAL CARE SERVICE PROVIDER - [place] - 11/26/2020 1:45 PM EST Department of Internal Medicine Division of Endocrinology, Diabetes, & Metabolism Endocrinology Progress Note Patient Name: Will Jacinto : 1965 AGE: 55 y.o. Room/Bed: 1714/094945 Admission Date: 11/22/2020 5:55 PM Consult Date: 11/24/20 Visit Date: 11/26/2020 Reason for Endocrine Consult: "out of control diabetic" Provider/Team Requesting Consult: Joann PCP: Jared Guzman MD Outpt District Sales Coordinator: yes, [facility] ASSESSMENT: T2DM uncontrolled w/ hyperglycemia, on long-term insulin Insulin resistance Morbid obesity Body mass index is 51.62 kg/m . Gastroparesis S/p Right AKA Polyneuropathy PLAN: - Pt currently on full liquid diet. - continue U-500 doses to 80-55-75 while on clears - continue Regular sliding scale insulin 3 times a day with meals - monitor blood glucose QAC and HS - carb control diet if possible - management of hypoglycemia per protocol - counseled patient regarding DM management - discussed insulin regimen - TSH was WNL. ANTICIPATED ENDOCRINE HOME GOING RECOMMENDATIONS: Optimized for Discharge from Endocrine standpoint: Yes Home Going Endocrine Rx Recommendations-- Resume outpt pre-admit U500 pen doses (160-110-150 units TID) Outpt Follow Up-- [facility] [place] Lee Appointment request sent to Endo office Staff: No, has appt in January SUBJECTIVE/HPI: CHIEF COMPLAINT: Abdominal Pain Type of DM: 2 Onset of DM: unclear Home DM Medication Regimen: U500 pen 160/110/150 TID; given via SNF ([facility]) DM control (last A1c/glucose data): Lab Results Component Value Date LABA1C 10.0 (A) 11/23/2020 Lab Results Component Value Date EAG 240 11/23/2020 Results for WILL JACINTO" ( ) as of 11/26/2020 13:51 Ref. Range 11/26/2020 00:00 TSH Latest Ref Range: 0.465 - 4.680 u[IU]/mL 2.356 Pt is now s/p D&C and IUD placement. No U 500 was given this am, she was at the procedure, last dose was at dinner last night. Denies CP/SOB. Some abd tenderness, no n/v/d. Pt reports he had cream of wheat, diet gingerale, pudding, milk this morning for BF(no insulin was given this am). BG 168-248 in last 24 hrs, 468 before L. Pt on full liquid currently. Plan for d/c to [facility] once stable. ROS negative except for those mentioned in HPI. OBJECTIVE: Vitals: 11/26/20 0815 11/26/20 0830 11/26/20 0915 11/26/20 0916 BP: (!) 155/64 (!) 160/62 (!) 159/80 Pulse: 86 87 88 88 Resp: 18 15 15 Temp: 97.6 F (36.4 C) 97.6 F (36.4 C) TempSrc: Temporal Temporal SpO2: 98% 98% 93% Weight: Height: Physical Exam Vitals signs reviewed. Constitutional: General: He is not in acute distress. Appearance: He is well-developed. He is obese. Eyes: General: No scleral icterus. Conjunctiva/sclera: Conjunctivae normal. Neck: Musculoskeletal: Neck supple. Thyroid: No thyromegaly. Cardiovascular: Rate and Rhythm: Normal rate and regular rhythm. Pulses: Normal pulses. Heart sounds: Normal heart sounds. No murmur. Pulmonary: Effort: Pulmonary effort is normal. No respiratory distress. Breath sounds: No wheezing, rhonchi or rales. Abdominal: General: There is distension. Palpations: Abdomen is soft. There is no hepatomegaly, splenomegaly or mass. Tenderness: There is abdominal tenderness. There is no guarding or rebound. Musculoskeletal: General: Swelling and deformity present. No tenderness. Comments: R AKA Lymphadenopathy: Cervical: No cervical adenopathy. Skin: General: Skin is warm and dry. Findings: Rash present. No erythema. Comments: No open skin lesions Neurological: General: No focal deficit present. Mental Status: He is alert. Motor: No tremor. Psychiatric: Mood and Affect: Mood normal. Affect is flat. Speech: Speech normal. Behavior: Behavior is cooperative. 24 hour intake/output: Intake/Output Summary (Last 24 hours) at 11/26/2020 1346 Last data filed at 11/26/2020 0802 Gross per 24 hour Intake 400 ml Output Net 400 ml Diet: DIET FULL LIQUID; Medications (as per EMR): HomeMeds: Prior to Admission medications Medication Sig Start Date End Date Taking? Authorizing Provider acetaminophen (TYLENOL) 325 MG tablet Take 2 tablets by mouth every 4 hours as needed for Pain 11/25/20 Yes Art Stapleton MD atorvastatin (LIPITOR) 10 MG tablet Take 1 tablet by mouth daily 11/26/20 Yes Art Stapleotn MD megestrol (MEGACE) 40 MG tablet Take 2 tablets by mouth 2 times daily 11/25/20 Yes Art Stapleton MD dilTIAZem (CARDIZEM CD) 180 MG extended release capsule Take 1 capsule by mouth daily 11/26/20 Yes Art Stapleton MD miconazole (MICOTIN) 2 % powder Apply topically 2 times daily. 11/25/20 Yes Art Stapleton MD bisacodyl (DULCOLAX) 5 MG EC tablet Take 1 tablet by mouth every 12 hours as needed for Constipation 11/25/20 Yes Art Stapleton MD metoclopramide (REGLAN) 5 MG/ML injection Infuse 2 mLs intravenously every 6 hours 11/25/20 12/25/20 Yes Art Stapleton MD pantoprazole (PROTONIX) 40 MG tablet Take 1 tablet by mouth every morning (before breakfast) 11/26/20 Yes Art Stapleton MD insulin regular human (HUMULIN R U-500 KWIKPEN) 500 UNIT/ML SOPN concentrated injection pen 160 units before breakfast, 110 units before lunch, 150 units before dinner 09/30/20 Yes Анна Villela MD FLUoxetine (PROZAC) 20 MG capsule Take 40 mg by mouth daily Yes Historical Provider, Magnesium Hydroxide (MILK OF MAGNESIA CONCENTRATE PO) Take 30 mLs by mouth as needed (constipation)Yes Historical Provider, ARIPiprazole (ABILIFY) 10 MG tablet Take 10 mg by mouth daily Yes Historical Provider, lisinopril (PRINIVIL;ZESTRIL) 40 MG tablet Take 40 mg by mouth daily Yes Historical Provider, Scheduled Meds: [START ON 11/27/2020] enoxaparin 40 mg Subcutaneous Daily polyethylene glycol 17 g Oral Daily insulin regular human 80 Units Subcutaneous QAM AC insulin regular human 55 Units Subcutaneous Daily before lunch insulin regular human 75 Units Subcutaneous Dinner metoclopramide 10 mg Intravenous Q6H ARIPiprazole 10 mg Oral Daily aspirin 81 mg Oral Daily dilTIAZem 180 mg Oral Daily FLUoxetine 40 mg Oral Daily lisinopril 40 mg Oral Daily miconazole Topical BID pantoprazole 40 mg Oral QAM AC atorvastatin 10 mg Oral Daily insulin regular 0-16 Units Subcutaneous TID AC Continuous Infusions: sodium chloride 125 mL/hr at 11/25/20 1138 dextrose PRN Meds:nitroGLYCERIN, acetaminophen, bisacodyl, glucose, dextrose, glucagon (rDNA), dextrose, ondansetron Diagnostic Workup: I reviewed pertinent Laboratory results, Radiographic results, and Other Clinical Notes at the timeof today's encounter. BMP: Recent Labs 11/24/20 1126 11/25/20 0434 11/26/20 0000 NA 133* 136 130* K 4.3 3.8 3.9 CL 97* 103 98 CO2 29 28 25 BUN 16 11 10 CREATININE 0.74 0.76 0.63 GLUCOSE 304* 107* 188* Glucose: Recent Labs 11/24/20 1659 11/24/20 2054 11/25/20 0622 11/25/20 1122 11/25/20 1721 11/25/20 2212 11/26/20 0637 11/26/20 0812 POCGLU 235* 159* 121* 202* 248* 168* 169* 206* HgbA1C: No results for input(s): LABA1C in the last 72 hours. Hepatic: Recent Labs 11/26/20 0000 ALKPHOS 88 ALT 33 AST 29 PROT 6.2* BILITOT 0.5 LABALBU 3.4* Lipids: No results for input(s): CHOL, TRIG, HDL, LDLCALC in the last 72 hours. Invalid input(s): LDL TSH: Lab Results Component Value Date TSH 2.356 11/26/2020 T4FREE 1.15 05/09/2019 Radiology reportsas per the Radiologist Radiology: Xr Chest Portable Result Date: 11/22/2020 Patient Name: WILL JACINTO Diagnostic Radiology ACCESSION EXAM DATE/TIME PROCEDURE ORDERING PROVIDER [id number] 11/22/2020 18:30 EST CR Chest Portable [id number] NELSON CPT code 66284 Reason For Exam (CR Chest Portable) SOB Report Reason for examination: Shortness of breath. Single portable chest is obtained at 1822 hours. Comparison is dated 06/14/2019. The trachea is midline. The mediastinal and cardiac silhouettes are stable. The depth of inspiration is slightly shallow. There is crowding of the central bronchovascular lung markings. No confluent infiltrates, significant pleural effusion or pneumothorax is seen. Report Dictated on --- Final --- Dictating Physician: MD AYE, IOANA Bah Signed Date and Time: 11/22/2020 6:32 pm Signed by: MD GRIFFITHS LAUREN B Transcribed Date and Time: 11/22/2020 6:33 Ct Abdomen Pelvis W Contrast Result Date: 11/22/2020 [id number] Tomography ACCESSION EXAM DATE/TIME PROCEDURE ORDERING PROVIDER [id number] 11/22/2020 19:[address] Abdomen/Pelvis w/ IV [id number] NELSON Contrast (IV Onl CPT code 35316 Q9967 Reason For Exam (CT Abdomen/Pelvis w/ IVContrast (IV Onl) abd pain Report EXAM: CT Abdomen and pelvis INDICATION: Abdominal pain COMPARISON: 09/17/2020 TECHNIQUE: CT of the abdomen and pelvis was performed with contrast (75 mL of Isovue 370 was injected intravenously). Coronal and sagittal reformats were obtained. FINDINGS: LOWER CHEST: Stable appearance of a 3 mm right middle lobe nodule. ABDOMEN: LIVER: There is relative hypoattenuation of liver parenchyma as compared to the spleen, consistent with hepatic steatosis. BILE DUCTS: normal caliber. GALLBLADDER: No calcified gallstones. Normal caliber wall. PANCREAS: within normal limits. SPLEEN: within normal limits. ADRENALS: within normal limits. KIDNEYS: within normal limits. PELVIS: REPRODUCTIVE ORGANS: no pelvic masses. URETERS: within normal limits. BLADDER: within normal limits. BOWEL: There is marked gastric distention. The small and large bowel are otherwise normal in caliber without evidence of obstruction. Appendix not well visualized, however, there are no rheumatoid changes in the right lower quadrant to suggest acute appendicitis. No enlarged mesenteric lymph nodes. PERITONEUM: no ascites or free air, no fluid collection. VESSELS: Within normal limits. LYMPHNODES: No enlarged nodes. RETROPERITONEUM: within normal limits. ABDOMINAL WALL: within normal limits. BONES: Multilevel degenerative changes of the imaged spine IMPRESSION: Computed Tomography Report 1. Moderate gastric distention. Remainder of bowel is normal in caliber without evidence of obstruction. 2. Hepatic steatosis. 3. Stable 3 mm right middle lobe pulmonary nodule. 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) Bipolar 1 disorder (HCC) Blood circulation, collateral Cellulitis chronic L lower leg Depression Diabetes mellitus (HCC) Type II, on insulin Disease of blood and blood forming organ Endometrial carcinoma (HCC) 11/25/2020 Endometrial hyperplasia Hx of blood clots RLE prior to amputation Hyperlipidemia Hypertension Lymphedema 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 No pertinent family history. Social History: Social History Tobacco Use Smoking status: Never Smoker Smokeless tobacco: Never Used Substance Use Topics Alcohol use: No Drug use: Never I spent 25 minutes with the pt which involved more than 51% of the time in coordination of care, medical evaluation, review of records, and/or counseling of the pt regarding his/her condition/diseasestate/prognosis on the date of this note. Associated attestation - Анна Villela MD - 11/26/2020 6:36 PM EST I performed a history and physical examination of the patient and discussed the management with theNP/resident. I reviewed the patient's chart including pertinent history, medications, labs, radiology, and other reports. I reviewed the [employer]/resident's note and agree with the documented findings and plan of care (with summary/modifications noted if any). Pt had D&C and IUD placement today. BG 468 postop. Pt on liquid diet. Some nausea. Last dose ofinsulin was last dinner. Records reviewed. BP (!) 159/80 Pulse 88 Temp 97.6 F (36.4 C) (Temporal) Resp 15 Ht 5' 6" (1.676 m) Wt (!) 319 lb 12.8 oz (145.1 kg) SpO2 93% BMI 51.62 kg/m Obese, awake, alert, not in distress, no thyromegaly, no LAD, RRR, no murmur, intact pulses, clear breath sounds, no rales, abdomen soft, nontender, no masses, no open skin lesions, no edema, no focal deficits, normal mood and affect. Dx: T2DM uncontrolled w/ hyperglycemia, on long-term insulin Insulin resistance Morbid obesity Body mass index is 51.62 kg/m . Gastroparesis S/p Right AKA Polyneuropathy S/p D&C and IUD placement Plan: - resume U-500 regimen and Reg SSI TID - pt received insulin doses earlier when I saw her but has not eaten; encouraged him to eat to avoid hypoglycemia - closely monitor BG; adjust doses as necessary - management of hypoglycemia per protocol - counseled pt on DM management - FU with Endocrinology outpatient - plan to DC back to [facility] Time spent with patient over 51% total time 15 minutes which includes review of records, counseling, management, and coordination of care as documented in note. * Jagdeep Grace MD - 11/26/2020 12:59 PM EST Progress Note Date:11/26/2020 Room:[address] [place] [address] Patient Name:Will Jacinto Date of :1965 Age:55 y.o. Subjective Subjective: Symptoms: Stable. He reports weakness. (Transgender male. Biological female). Diet: Adequate intake. Activity level: Impaired due to weakness. Pain: He reports no pain. Review of Systems Constitutional: Positive for activity change. HENT: Positive for congestion. Eyes: Negative. Respiratory: Negative. Cardiovascular: Positive for palpitations. Gastrointestinal: Positive for abdominal pain. Genitourinary: Positive for dysuria. Musculoskeletal: Positive for arthralgias. Skin: Negative. Neurological: Positive for weakness. Psychiatric/Behavioral: Positive for behavioral problems. Objective Vitals Last 24 Hours: TEMPERATURE: Temp Av.5 F (36.4 C) Min: 97 F (36.1 C) Max: 98.5 F (36.9 C) RESPIRATIONS RANGE: Resp Av.9 Min: 15 Max: 18 PULSE OXIMETRY RANGE: SpO2 Av.9 % Min: 92 % Max: 98 % PULSE RANGE: Pulse Av.9 Min: 75 Max: 92 BLOOD PRESSURE RANGE: Systolic (24hrs), Av , Min:115 , Max:160 ; Diastolic (24hrs), Av, Min:62, Max:84 I/O (24Hr): Intake/Output Summary (Last 24 hours) at 11/26/2020 1259 Last data filed at 11/26/2020 0802 Gross per 24 hour Intake 400 ml Output Net 400 ml Objective: General Appearance: Comfortable and well-appearing. Vital signs: (most recent): Blood pressure (!) 159/80, pulse 88, temperature 97.6 F (36.4 C), temperature source Temporal, resp. rate 15, height 5' 6" (1.676 m), weight (!) 319 lb 12.8 oz (145.1 kg),SpO2 93 %. Vital signs are normal. Output: Producing urine. HEENT: Normal HEENT exam. Lungs: Normal effort and normal respiratory rate. Breath sounds clear to auscultation. Heart: Normal rate. Regular rhythm. S1 normal and S2 normal. Positive for murmur and gallop. Abdomen: Abdomen is soft. Bowel sounds are normal. There is no abdominal tenderness. There is no mass. Extremities: Decreased range of motion. (Right AKA) Pulses: There are decreased pulses. Neurological: Patient is alert and oriented to person, place and time. Pupils: Pupils are equal, round, and reactive to light. Skin: Warm and dry. Labs/Imaging/Diagnostics Labs: CBC: Recent Labs 11/24/20 0319 11/25/20 0434 WBC 6.9 7.6 RBC 3.73* 3.35* HGB 11.0* 10.0* HCT 32.6* 29.4* MCV 87.4 87.7 RDW 16.3* 16.1* PLT 332 352 CHEMISTRIES: Recent Labs 11/24/20 1126 11/25/20 0434 11/26/20 0000 NA 133* 136 130* K 4.3 3.8 3.9 CL 97* 103 98 CO2 29 28 25 BUN 16 11 10 CREATININE 0.74 0.76 0.63 GLUCOSE 304* 107* 188* PT/INR:No results for input(s): PROTIME, INR in the last 72 hours. APTT:No results for input(s): APTT in the last 72 hours. LIVER PROFILE: Recent Labs 11/24/20 1126 11/25/20 0434 11/26/20 0000 AST 31 26 29 ALT 36* 31 33 BILITOT 0.6 0.4 0.5 ALKPHOS 110 83 88 Imaging Last 24 Hours: Xr Abdomen (kub) (single Ap View) Result Date: 11/25/2020 Patient Name: WILL JACINTO Diagnostic Radiology ACCESSION EXAM DATE/TIME PROCEDURE ORDERING PROVIDER [id number] 11/25/2020 15:08 EST CR Abdomen AP Lorenzo STAPLETON MICHAEL CPT code 09851 Reason For Exam (CR Abdomen AP) abd distention Report EXAM TYPE: CR Abdomen AP EXAM DATE AND TIME: 11/25/2020 3:08 PM EST INDICATION: 55 years Female with abdominal distention COMPARISON: CT from three days ago TECHNIQUE: AP supine radiograph of the abdomen and pelvis was obtained. FINDINGS: Gaseous distention of both small bowel and large bowel loops. Limited evaluation for free air or air-fluid levels on supine-only imaging. No abnormal soft tissue calcifications are seen. Degenerative changes are seen in the visualized spine. The visualized lung bases are unremarkable. IMPRESSION: Gaseous distention of small and large bowel loops, likely due to ileus; recommend continued imaging follow-up. Report Dictated on --- Final --- Dictating Physician: MD HANNA NICHOLAS Signed Date and Time: 11/25/2020 3:29 pm Signed by: MD HANNA NICHOLAS T ranscribed Date and Time: 11/25/2020 3:31 Us Non Ob Transvaginal Result Date: 11/25/2020 Patient Name: WILL JACINTO Ultrasound ACCESSION EXAM DATE/TIME PROCEDURE ORDERING PROVIDER [id number] 11/25/2020 10:38 EST US Transvaginal MD FRANCES, JAKOB CHATMAN CPT code 90749 Reason For Exam (US Transvaginal) AUB Report ULTRASOUND PELVIS: CLINICAL INDICATION: Abnormal uterine bleeding LMP: post menopausal COMPARISON: CT from 11/22/2020 TECHNIQUE: Transabdominal and transvaginal to optimally evaluate the ovaries and adnexal structures including colorflow and spectral Doppler imaging. Limited transvaginal images. FINDINGS: Uterus: Orientation: Anteverted Size: 12.8 x 6.4 x 7.8 cm Endometrium: Difficult to visualized, including limited transvaginal images, but appears heterogeneous and thickened, measuring 16 mm Mass: none Cervix: normal Neitherovary was visualized. Cul-de-sac: No free pelvic fluid IMPRESSION: 1. Endometrial thickening. Giventhe history of postmenopausal bleeding, hysteroscopy and tissue sampling is recommended as the findings could be seen in endometrial hyperplasia, polyp or neoplasm. 2. Neither ovary was visualized. Report Dictated on --- Final --- Dictating Physician: MD HANNA NICHOLAS Signed Date and Time: 11/25/2020 10:45 am Signed by: MD HANNA NICHOLAS Transcribed Date and Time: 11/25/2020 10:46 Assessment//Plan Assessment: Condition: In stable condition. Improving. (Active Problems: Hypertension>>Stable Chronic osteomyelitis (HCC) Type 2 diabetes mellitus with hyperglycemia, with long-term current use of insulin (HCC) 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 (HCC) Chronic acquired lymphedema S/P AKA (above knee amputation) unilateral, right (HCC) Diabetic hyperosmolar non-ketotic state (HCC) Endometrial hyperplasia & Endometrial carcinoma (HCC) & Complex endometrial hyperplasia with atypia & Thickened endometrium). Plan: Start/continue incentive spirometry and continue respiratory treatments. Restricted diet and advance diet as tolerated. X-rays as ordered. Administer medications as ordered. (Specialty Problems Cardiology Problems 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 (HCC) >>>Meds Hypertension >>Meds Reevaluate). I personally obtained the bunch and critical portions of the history and physical exam. I reviewed the labs, imaging studies, and electronic medical record. I reviewed the chart documentation, and discussed the patient with treatment team members. I have edited the note to reflect my clinical findings and my assessment and plan. SIGNATURE: Jagdeep Grace MD; FACC; FHRS; FASNC; CCDS. PATIENT NAME: Will Jacinto DATE: 11/26/2020 PAGER: [phone] * Leonela Guerrero MD - 11/26/2020 12:35 PM EST Underwent uncomplicated PEUA, D&C, and IUD placement this morning. Megace discontinued as she is now being treated with levonorgestrel IUD. Will await pathology results and arrange outpatient follow up. [employer] SHOVEL[employer]C will sign off at this time. Please re-consult with further questions or concerns. Discussed w/ Dr. Dejesus. * Michael Martin MD - 11/26/2020 10:24 AM EST Hospitalist Progress Note 11/26/2020 10:25 AM Subjective: Admit Date: 11/22/2020 PCP: Jared Guzman MD Interval History: No overnight issues. DIET FULL LIQUID; No intake/output data recorded. Date 11/26/20 - 11/26/20 2359 Shift [id number] 2581-9380 1253-7802 24 Hour Total INTAKE P.O.(mL/kg/hr) 100 100 I.V.(mL/kg) 300(2.1) 300(2.1) Shift Total(mL/kg) 300(2.1) 100(0.7) 400(2.8) OUTPUT Shift Total(mL/kg) Weight (kg) 145.1 145.1 145.1 145.1 Patient Vitals for the past 96 hrs (Last 3 readings): Weight 11/25/20 0600 (!) 319 lb 12.8 oz (145.1 kg) 11/24/20 0630 (!) 323 lb 3.2 oz (146.6 kg) 11/22/20 2256 (!) 353 lb (160.1 kg) Medications: sodium chloride 125 mL/hr at 11/25/20 1138 dextrose [START ON 11/27/2020] enoxaparin 40 mg Subcutaneous Daily polyethylene glycol 17 g Oral Daily insulin regular human 80 Units Subcutaneous QAM AC insulin regular human 55 Units Subcutaneous Daily before lunch insulin regular human 75 Units Subcutaneous Dinner metoclopramide 10 mg Intravenous Q6H ARIPiprazole 10 mg Oral Daily aspirin 81 mg Oral Daily dilTIAZem 180 mg Oral Daily FLUoxetine 40 mg Oral Daily lisinopril 40 mg Oral Daily miconazole Topical BID pantoprazole 40 mg Oral QAM AC atorvastatin 10 mg Oral Daily insulin regular 0-16 Units Subcutaneous TID AC Recent Labs 11/24/20 0319 11/25/20 0434 WBC 6.9 7.6 HGB 11.0* 10.0* PLT 332 352 Recent Labs 11/24/20 1126 11/25/20 0434 11/26/20 0000 NA 133* 136 130* K 4.3 3.8 3.9 CL 97* 103 98 CO2 29 28 25 BUN 16 11 10 CREATININE 0.74 0.76 0.63 GLUCOSE 304* 107* 188* Recent Labs 11/24/20 1126 11/25/20 0434 11/26/20 0000 AST 31 26 29 ALT 36* 31 33 BILITOT 0.6 0.4 0.5 ALKPHOS 110 83 88 Lab Results Component Value Date TRIG 190 08/23/2020 HDL 31 08/23/2020 LDLCALC 56 08/23/2020 CHOL 125 08/23/2020 No results found for: PHART, PO2ART, [id number] No results for input(s): INR in the last 72 hours. Recent Labs 11/24/20 1126 11/24/20 1701 11/24/20 2328 TROPONINI <0.012 <0.012 <0.012 No results for input(s): DDIMER in the last 72 hours. No components found for: HGBA1C Lab Results Component Value Date TSH 2.356 11/26/2020 Urine Culture: Results for orders placed or performed during the hospital encounter of 09/06/18 Urine Culture Specimen: Urine, clean catch Result Value Ref Range Urine Culture, Routine Proteus mirabilis (A) Urine Culture, Routine >100,000 CFU/ml Urine Culture, Routine Enterococcus faecium (A) Urine Culture, Routine 10,000-50,000 CFU/ml Susceptibility testing performed only upon request for cultures with multiple types of microorganisms below 100,000 CFU/ml. Susceptibility Proteus mirabilis - BACTERIAL SUSCEPTIBILITY PANEL BY TULIO amikacin <=2 Sensitive amoxicillin-clavulanate 8 Sensitive ampicillin >=32 Resistant ampicillin-sulbactam 8 Sensitive aztreonam <=1 Sensitive ceFAZolin 8 Resistant cefepime <=1 Sensitive cefTRIAXone <=1 Sensitive ciprofloxacin >=4 Resistant ertapenem <=0.5 Sensitive gentamicin <=1 Sensitive levofloxacin >=8 Resistant meropenem <=0.25 Sensitive nitrofurantoin Resistant piperacillin-tazobactam <=4 Sensitive trimethoprim-sulfamethoxazole >=320 Resistant Objective: Vitals: BP (!) 159/80 Pulse 88 Temp 97.6 F (36.4 C) (Temporal) Resp 15 Ht 5' 6" (1.676 m) Wt (!) 319 lb 12.8 oz (145.1 kg) SpO2 93% BMI 51.62 kg/m Pulse Ox: SpO2 Av.9 % Min: 92 % Max: 98 % Supplemental O2: General appearance: alert and cooperative with exam Lungs: clear to auscultation bilaterally Heart: regular rate and rhythm, S1, S2 normal, no murmur, click, rub or gallop, no chest wall tenderness Abdomen: soft, non-tender; bowel sounds normal; no masses, no organomegaly Extremities: Chronic LLE edema, + venous stasis changes, s/p R AKA Neurologic: No obvious focal neurologic deficits. Assessment and Plan: 1. Abdominal pain, diabetic gastroparesis 2. Insulin-dependent diabetes with severe hyperglycemia 3. Chest pain, atypical -resolved. 4. Dysfunctional uterine bleeding in transgender male, hx of endometrial hyperplasia 5. Morbid obesity, obstructive sleep apnea on no mask 6. S/p RLE AKA 7. HTN 8. HPL 9. Depression/schizophrenia/bipolar type 1 10. Hx of chronic LLE cellulitis/lymphedema 11. Debility Plan: Pt was transferred from [facility] Seen by Video Manager and had hysteroscopy today with biopsy done KUB showing possible ileus. Pt asking for food. Cont liquid diet for now. Add miralax. Monitor serial KUBs. Seen by GI -started reglan Cont PPI Endocrinology following for hyperglycemia Pt denied any chest pain. Troponin negative. Seen by cardiology Follow clinically. Michael Martin MD Rounding Hospitalist * Leonela Guerrero MD - 11/26/2020 6:17 AM EST Gynecologic Oncology Progress Note Date: 11/26/2020 Time: 6:17 AM Will Gilliam McNarendracareyalex 55 y.o. transgender male admitted to [facility] for abdominal pain and uncontrolled T2DM, gynecology oncology consulted due to vaginal bleeding in setting of known complex atypical endometrial hyperplasia Patient seen and examined. Doing well this morning. Denies complaints. Reports vaginal bleeding is ongoing but seems to have slowed down. Denies pain. Denies fever, chills, chest pain, shortness of breath, nausea, and vomiting. Vitals: Vitals: 11/24/20 1935 11/25/20 0600 11/25/20 0824 11/25/20 2156 BP: 139/69 (!) 154/75 (!) 157/78 Pulse: 71 87 85 Resp: 17 18 16 Temp: 99.5 F (37.5 C) 97.8 F (36.6 C) 98.5 F (36.9 C) TempSrc: Temporal Temporal Temporal SpO2: 96% 93% 96% Weight: (!) 319 lb 12.8 oz (145.1 kg) Height: Physical Exam: General: NAD, alert and cooperative HEENT: normocephalic, atraumatic, EOMI, MMM Resp: CTABL, no WRR Card: RRR, no murmur Abd: obese, soft, NT/ND, no rebound, no guarding Ext: no LE edema, no calf tenderness or swelling, s/p RLE AKA Medications: Current Facility-Administered Medications Medication Dose Route Frequency Provider Last Rate Last Admin insulin regular human (humuLIN R U-500 KWIKPEN) 500 UNIT/ML concentrated injection pen 80 Units 80 Units Subcutaneous QAM AC Анна Villela MD insulin regular human (humuLIN R U-500 KWIKPEN) 500 UNIT/ML concentrated injection pen 55 Units 55 Units Subcutaneous Daily before lunch Анна Villela MD insulin regular human (humuLIN R U-500 KWIKPEN) 500 UNIT/ML concentrated injection pen 75 Units 75 Units Subcutaneous Dinner Анна Villela MD 75 Units at 11/25/20 1811 nitroGLYCERIN (NITROSTAT) SL tablet 0.4 mg 0.4 mg Sublingual Q5 Min PRN Kylah David MD 0.4 mg at 11/24/20 1138 metoclopramide (REGLAN) injection 10 mg 10 mg Intravenous Q6H Sergio Sibley DO 10 mg at 11/26/20 0516 ARIPiprazole (ABILIFY) tablet 10 mg 10 mg Oral Daily Art Stapleton MD 10 mg at 11/25/20 1138 acetaminophen (TYLENOL) tablet 650 mg 650 mg Oral Q4H PRN Art Stapleton MD 650 mg at 11/25/20 2019 aspirin chewable tablet 81 mg 81 mg Oral Daily Art Stapleton MD 81 mg at 11/25/20 1139 bisacodyl (DULCOLAX) EC tablet 5 mg 5 mg Oral Q12H PRN Art Stapleton MD dilTIAZem (CARDIZEM CD) extended release capsule 180 mg 180 mg Oral Daily Art Stapleton MD 180 mg at 11/25/20 1138 FLUoxetine (PROZAC) capsule 40 mg 40 mg Oral Daily Art Stapleton MD 40 mg at 11/25/20 1139 lisinopril (PRINIVIL;ZESTRIL) tablet 40 mg 40 mg Oral Daily Art Stapleton MD 40 mg at 11/25/20 1139 megestrol (MEGACE) tablet 80 mg 80 mg Oral BID Art Stapleton MD 80 mg at 11/25/20 1139 miconazole (MICOTIN) 2 % powder Topical BID Art Stapleton MD Given at 11/25/20 1148 pantoprazole (PROTONIX) tablet 40 mg 40 mg Oral QAM AC Art Stapleton MD 40 mg at 601 atorvastatin (LIPITOR) tablet 10 mg 10 mg Oral Daily Art Stapleton MD 10 mg at 11/25/20 1138 0.9 % sodium chloride infusion Intravenous Continuous Art Rose Stapleton MD 125 mL/hr at 11/25/20 1138 New Bag at 11/25/20 1138 glucose (GLUTOSE) 40 % oral gel 15 g 15 g Oral PRN Kylah David MD dextrose 50 % IV solution 12.5 g Intravenous PRN Kylah David MD glucagon (rDNA) injection 1 mg 1 mg Intramuscular PRN Kylah David MD dextrose 5 % solution 100 mL/hr Intravenous PRN Kylah David MD [Held by provider] enoxaparin (LOVENOX) injection 40 mg 40 mg Subcutaneous Daily Kylah David MD 40 mg at 11/25/20 1138 ondansetron (ZOFRAN) injection 4 mg 4 mg Intravenous Q6H PRN Kylah David MD 4 mg at 11/25/202021 insulin regular (HUMULIN R;NOVOLIN R) injection 0-16 Units 0-16 Units Subcutaneous TID TANIA Garibay DO 6 Units at 11/25/20 181 Diagnostics: Xr Chest Portable Result Date: 11/22/2020 The trachea is midline. The mediastinal and cardiac silhouettes are stable. The depth of inspiration is slightly shallow. There is crowding of the central bronchovascular lung markings. No confluent infiltrates, significant pleural effusion or pneumothorax is seen. Ct Abdomen Pelvis W Contrast Result Date: 11/22/2020 FINDINGS: LOWER CHEST: Stable appearance of a 3 mm right middle lobe nodule. ABDOMEN: LIVER: There is relative hypoattenuation of liver parenchyma as compared to the spleen, consistent with hepatic steatosis. BILE DUCTS: normal caliber. GALLBLADDER: No calcified gallstones. Normal caliber wall. PANCREAS: within normal limits. SPLEEN: within normal limits. ADRENALS: within normal limits. KIDNEYS: within normal limits. PELVIS: REPRODUCTIVE ORGANS: no pelvic masses. URETERS: within normal limits. BLADDER: within normal limits. BOWEL: There is marked gastric distention. The small and large bowel are otherwise normal in caliber without evidence of obstruction. Appendix not well visualized, however, there are no rheumatoid changes in the right lower quadrant to suggest acute appendicitis. No enlarged mesenteric lymph nodes. PERITONEUM: no ascites or free air, no fluid collection. VESSELS: Within normal limits. LYMPH NODES: No enlarged nodes. RETROPERITONEUM: within normal limits. ABDOMINAL WALL: within normal limits. BONES: Multilevel degenerative changes of the imaged spine IMPRESSION: 1. Moderate gastric distention. Remainder of bowel is normal in caliber without evidence of obstruction. 2. Hepatic steatosis. 3. Stable 3 mm right middle lobe pulmonary nodule. Labs: No results displayed because visit has over 200 results. Assessment/Plan: Will Jacinto 55 y.o. transgender male admitted to [facility] for abdominal pain and uncontrolled T2DM, gynecology oncology consulted due to vaginal bleeding in setting of known complex atypical endometrial hyperplasia 1. Complex atypical hyperplasia - Endorses continued vaginal bleeding this morning, slowing down - Currently on Megace 800 mg bid, reports compliance - Plan for hysteroscopy D&C w/ Liletta IUD insertion this morning at 0700 - Will monitor bleeding and follow up pathology results after procedure to determine long-term management Appreciate primary team and consultant rn management of medical comorbidities. Most recent BGT 168, will check again prior to proceeding w/ surgery to ensure adequate glycemic control. Will discuss planwith Dr. Dejesus. Leonela Guerrero MD 11/26/2020, 6:17 AM Associated attestation - Virgil Marshall MD - 11/26/2020 10:56 AM EST Attending Supervising Physician's Attestation Statement I performed a history and physical examination on the patient and discussed the management with theresident physician. I reviewed and agree with the findings and plan as documented in her note . OR today for EUA, D&C and IUD placement. All questions answered, informed written consent obtained.The patient requested I call his aunt after the surgery. * Анна Villela MD - 11/25/2020 5:11 PM EST Department of Internal Medicine Division of Endocrinology, Diabetes, & Metabolism Endocrinology Progress Note Patient Name: Will Jacinto : 1965 AGE: 55 y.o. Room/Bed: 158/1581 Admission Date: 11/22/2020 5:55 PM Consult Date: 11/24/20 Visit Date: 11/25/2020 Reason for Endocrine Consult: "out of control diabetic" Provider/Team Requesting Consult: Joann PCP: Jared Guzman MD Outpt District Sales Coordinator: yes, [facility] [place] ASSESSMENT: T2DM uncontrolled w/ hyperglycemia, on long-term insulin Insulin resistance Morbid obesity Body mass index is 51.62 kg/m . Gastroparesis Right AKA status Polyneuropathy PLAN: - DM is uncontrolled; BG improved but pt then was made NPO, now on clear liquids - will reduce U-500 doses to 80-55-75 while on clears - continue Regular sliding scale insulin 3 times a day with meals - monitor blood glucose QAC and HS - carb control diet if possible - management of hypoglycemia per protocol - counseled patient regarding DM management - discussed insulin regimen - check TSH ANTICIPATED ENDOCRINE HOME GOING RECOMMENDATIONS: Optimized for Discharge from Endocrine standpoint: Yes Home Going Endocrine Rx Recommendations-- Resume outpt pre-admit U500 pen doses (160-110-150 units TID) Outpt Follow Up-- [facility] [place] Dr. Lee Appointment request sent to Endo office Staff: No, has appt in January SUBJECTIVE/HPI: CHIEF COMPLAINT: Abdominal Pain Type of DM: 2 Onset of DM: unclear Home DM Medication Regimen: U500 pen 160/110/150 TID; given via ([facility]) DM control (last A1c/glucose data): Lab Results Component Value Date LABA1C 10.0 (A) 11/23/2020 Lab Results Component Value Date EAG 240 11/23/2020 He continues to have persistent abdominal pain. Also has had episodes of nausea and vomiting. He was not able to tolerate it diet today. He was made n.p.o. Patient was being transported for abdominal x-ray today. BG 121 this AM, 202 at lunchtime. U-500 dose was held. Denies CP/SOB. ROS negative except for those mentioned in HPI. OBJECTIVE: Vitals: 11/24/20 1105 11/24/20 1935 11/25/20 0600 11/25/20 0824 BP: (!) 177/85 139/69 (!) 154/75 Pulse: 87 71 87 Resp: Temp: 99.7 F (37.6 C) 99.5 F (37.5 C) 97.8 F (36.6 C) TempSrc: Temporal Temporal Temporal SpO2: 93% 96% 93% Weight: (!) 319 lb 12.8 oz (145.1 kg) Height: Physical Exam Vitals signs reviewed. Constitutional: General: He is not in acute distress. Appearance: He is well-developed. He is obese. Eyes: General: No scleral icterus. Conjunctiva/sclera: Conjunctivae normal. Neck: Musculoskeletal: Neck supple. Thyroid: No thyromegaly. Cardiovascular: Rate and Rhythm: Normal rate and regular rhythm. Pulses: Normal pulses. Heart sounds: Normal heart sounds. No murmur. Pulmonary: Effort: Pulmonary effort is normal. No respiratory distress. Breath sounds: No wheezing, rhonchi or rales. Abdominal: General: There is distension. Palpations: Abdomen is soft. There is no hepatomegaly, splenomegaly or mass. Tenderness: There is abdominal tenderness. There is no guarding or rebound. Musculoskeletal: General: Swelling and deformity present. No tenderness. Comments: R AKA Lymphadenopathy: Cervical: No cervical adenopathy. Skin: General: Skin is warm and dry. Findings: Rash present. No erythema. Comments: No open skin lesions Neurological: General: No focal deficit present. Mental Status: He is alert. Motor: No tremor. Psychiatric: Mood and Affect: Mood is anxious. Affect is flat. Speech: Speech normal. Behavior: Behavior is cooperative. 24 hour intake/output: Intake/Output Summary (Last 24 hours) at 11/25/2020 1711 Last data filed at 11/25/2020 0602 Gross per 24 hour Intake 2911 ml Output 1600 ml Net 1311 ml Diet: DIET CLEAR LIQUID; Diet NPO, After Midnight Medications (as per EMR): HomeMeds: Prior to Admission medications Medication Sig Start Date End Date Taking? Authorizing Provider acetaminophen (TYLENOL) 325 MG tablet Take 2 tablets by mouth every 4 hours as needed for Pain 11/25/20 Yes Art Stapleton MD atorvastatin (LIPITOR) 10 MG tablet Take 1 tablet by mouth daily 11/26/20 Yes Art Stapleton MD megestrol (MEGACE) 40 MG tablet Take 2 tablets by mouth 2 times daily 11/25/20 Yes Art Stapleton MD dilTIAZem (CARDIZEM CD) 180 MG extended release capsule Take 1 capsule by mouth daily 11/26/20 Yes Art Stapleton MD miconazole (MICOTIN) 2 % powder Apply topically 2 times daily. 11/25/20 Yes Art Stapleton MD bisacodyl (DULCOLAX) 5 MG EC tablet Take 1 tablet by mouth every 12 hours as needed for Constipation 11/25/20 Yes Art Stapleton MD metoclopramide (REGLAN) 5 MG/ML injection Infuse 2 mLs intravenously every 6 hours 11/25/20 12/25/20 Yes Art Stapleton MD pantoprazole (PROTONIX) 40 MG tablet Take 1 tablet by mouth every morning (before breakfast) 11/26/20 Yes Art Stapleton MD insulin regular human (HUMULIN R U-500 KWIKPEN) 500 UNIT/ML SOPN concentrated injection pen 160 units before breakfast, 110 units before lunch, 150 units before dinner 09/30/20 Yes Анна Villela MD FLUoxetine (PROZAC) 20 MG capsule Take 40 mg by mouth daily Yes Historical Provider, Magnesium Hydroxide (MILK OF MAGNESIA CONCENTRATE PO) Take 30 mLs by mouth as needed (constipation)Yes Historical Provider, ARIPiprazole (ABILIFY) 10 MG tablet Take 10 mg by mouth daily Yes Historical Provider, lisinopril (PRINIVIL;ZESTRIL) 40 MG tablet Take 40 mg by mouth daily Yes Historical Provider, Scheduled Meds: insulin regular human 80 Units Subcutaneous Once insulin regular human 100 Units Subcutaneous QAM AC insulin regular human 90 Units Subcutaneous Dinner metoclopramide 10 mg Intravenous Q6H ARIPiprazole 10 mg Oral Daily aspirin 81 mg Oral Daily dilTIAZem 180 mg Oral Daily FLUoxetine 40 mg Oral Daily lisinopril 40 mg Oral Daily megestrol 80 mg Oral BID miconazole Topical BID pantoprazole 40 mg Oral QAM AC atorvastatin 10 mg Oral Daily [Held by provider] enoxaparin 40 mg Subcutaneous Daily insulin regular human 40 Units Subcutaneous Daily before lunch insulin regular 0-16 Units Subcutaneous TID AC Continuous Infusions: sodium chloride 125 mL/hr at 11/25/20 1138 dextrose PRN Meds:nitroGLYCERIN, acetaminophen, bisacodyl, glucose, dextrose, glucagon (rDNA), dextrose, ondansetron Diagnostic Workup: I reviewed pertinent Laboratory results, Radiographic results, and Other Clinical Notes at the timeof today's encounter. BMP: Recent Labs 11/24/20 0319 11/24/20 1126 11/25/20 0434 NA 132* 133* 136 K 4.8 4.3 3.8 CL 97* 97* 103 CO2 29 29 28 BUN 18 16 11 CREATININE 0.78 0.74 0.76 GLUCOSE 308* 304* 107* Glucose: Recent Labs 11/23/20 1649 11/23/20 2040 11/24/20 0638 11/24/20 1100 11/24/20 1659 11/24/20 2054 11/25/20 0622 11/25/20 1122 POCGLU 427* 305* 358* 298* 235* 159* 121* 202* HgbA1C: Recent Labs 11/23/20 0351 LABA1C 10.0* Hepatic: Recent Labs 11/22/20 1827 11/22/20 1827 11/25/20 0434 ALKPHOS 181* < > 83 ALT 44* < > 31 AST 30 < > 26 PROT 7.4 < > 5.8* BILITOT 0.6 < > 0.4 BILIDIR 0.0 -- -- LABALBU 4.2 < > 3.1* < > = values in this interval not displayed. Lipids: No results for input(s): CHOL, TRIG, HDL, LDLCALC in the last 72 hours. Invalid input(s): LDL TSH: Lab Results Component Value Date TSH 1.112 05/09/2019 T4FREE 1.15 05/09/2019 Radiology reportsas per the Radiologist Radiology: Xr Chest Portable Result Date: 11/22/2020 Patient Name: WILL JACINTO Diagnostic Radiology ACCESSION EXAM DATE/TIME PROCEDURE ORDERING PROVIDER [id number] 11/22/2020 18:30 EST CR Chest Portable [id number] [id number] CPT code 84310 Reason For Exam (CR Chest Portable) SOB Report Reason for examination: Shortness of breath. Single portable chest is obtained at 1822 hours. Comparison is dated 06/14/2019. The trachea is midline. The mediastinal and cardiac silhouettes are stable. The depth of inspiration is slightly shallow. There is crowding of the central bronchovascular lung markings. No confluent infiltrates, significant pleural effusion or pneumothorax is seen. Report Dictated on --- Final --- Dictating Physician: MD GRIFFITHS LAUREN B Signed Date and Time: 11/22/2020 6:32 pm Signed by: MD GRIFFITHS LAUREN B Transcribed Date and Time: 11/22/2020 6:33 Ct Abdomen Pelvis W Contrast Result Date: 11/22/2020 Patient Name: WILL JACINTO Computed Tomography ACCESSION EXAM DATE/TIME PROCEDURE ORDERING PROVIDER [id number] 11/22/2020 19:[address] Abdomen/Pelvis w/ IV [id number] -JOEL NELSON Contrast (IV Onl CPT code 25394 Q9967 Reason For Exam (CT Abdomen/Pelvis w/ IVContrast (IV Onl) abd pain Report EXAM: CT Abdomen and pelvis INDICATION: Abdominal pain COMPARISON: 09/17/2020 TECHNIQUE: CT of the abdomen and pelvis was performed with contrast (75 mL of Isovue 370 was injected intravenously). Coronal and sagittal reformats were obtained. FINDINGS: LOWER CHEST: Stable appearance of a 3 mm right middle lobe nodule. ABDOMEN: LIVER: There is relative hypoattenuation of liver parenchyma as compared to the spleen, consistent with hepatic steatosis. BILE DUCTS: normal caliber. GALLBLADDER: No calcified gallstones. Normal caliber wall. PANCREAS: within normal limits. SPLEEN: within normal limits. ADRENALS: within normal limits. KIDNEYS: within normal limits. PELVIS: REPRODUCTIVE ORGANS: no pelvic masses. URETERS: within normal limits. BLADDER: within normal limits. BOWEL: There is marked gastric distention. The small and large bowel are otherwise normal in caliber without evidence of obstruction. Appendix not well visualized, however, there are no rheumatoid changes in the right lower quadrant to suggest acute appendicitis. No enlarged mesenteric lymph nodes. PERITONEUM: no ascites or free air, no fluid collection. VESSELS: Within normal limits. LYMPHNODES: No enlarged nodes. RETROPERITONEUM: within normal limits. ABDOMINAL WALL: within normal limits. BONES: Multilevel degenerative changes of the imaged spine IMPRESSION: Computed Tomography Report 1. Moderate gastric distention. Remainder of bowel is normal in caliber without evidence of obstruction. 2. Hepatic steatosis. 3. Stable 3 mm right middle lobe pulmonary nodule. 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) Bipolar 1 disorder (HCC) Blood circulation, collateral Cellulitis chronic L lower leg Depression Diabetes mellitus (HCC) Type II, on insulin Disease of blood and blood forming organ Endometrial carcinoma (HCC) 11/25/2020 Endometrial hyperplasia Hx of blood clots RLE prior to amputation Hyperlipidemia Hypertension Lymphedema 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 No pertinent family history. Social History: Social History Tobacco Use Smoking status: Never Smoker Smokeless tobacco: Never Used Substance Use Topics Alcohol use: No Drug use: Never I spent 25 minutes with the pt which involved more than 51% of the time in coordination of care, medical evaluation, review of records, and/or counseling of the pt regarding his/her condition/diseasestate/prognosis on the date of this note. * Sergio Sibley, DO - 11/25/2020 1:41 PM EST GASTROENTEROLOGY PROGRESS NOTE Patient: Will Jacinto : 1965 Primary Care Physician: Jared Guzman MD History: Still with abd pain. Hx is limited. No n/v Physical Exam: Gen: AAOx3 in NAD BP (!) 154/75 Pulse 87 Temp 97.8 F (36.6 C) (Temporal) Resp 18 Ht 5' 6" (1.676 m) Wt (!) 319 lb 12.8 oz (145.1 kg) SpO2 93% BMI 51.62 kg/m CVS: RRR, Abd: Soft, NT/ND, +BS, No guarding/rebound, Laboratory Data: CBC: Recent Labs 11/23/20 0351 11/24/20 0319 11/25/20 0434 WBC 8.9 6.9 7.6 HGB 11.2* 11.0* 10.0* HCT 33.4* 32.6* 29.4* PLT 343 332 352 CMP: Recent Labs 11/24/20 1126 11/25/20 0434 NA 133* 136 K 4.3 3.8 CL 97* 103 CO2 29 28 BUN 16 11 CREATININE 0.74 0.76 GLUCOSE 304* 107* CALCIUM 9.1 8.4 HEPATIC: Recent Labs 11/24/20 1126 11/25/20 0434 AST 31 26 ALT 36* 31 BILITOT 0.6 0.4 ALKPHOS 110 83 Assessment: 1. Diabetic gastroparesis 2. N/V - 2/2 #1 , functional component 3. Uncontrolled DM 4. Hx of GERD with esophagitis Plan: 1. Reglan AC HS 2. Liquid wit diet supplements 3. Tight glycemic control 4. PPI daily. * Chely Saenz - 11/25/2020 8:28 AM EST Nutrition rescreen completed. Patient is NPO/Clear liquid >2 days. Refer to Dietitian. * Kylah David MD - 11/24/2020 1:16 PM EST Progress Note 11/24/2020 1:16 PM Subjective: Admit Date: 11/22/2020 PCP: Jared Guzman MD Interval History: Patient c/o late this AM of chest pain w no associated sx starting last evening, "910" in severity (but waited all night and AM to report it), EKG is sinus without ischemic changesand troponin neg so far. Also nurse noted excessive vaginal clots, patient not seen by STEAM SHOVELMAN ("due tohigh glucoses"). His glucose came down as low as 298. DIET CLEAR LIQUID; Intake/Output Summary (Last 24 hours) at 11/24/2020 1316 Last data filed at 11/24/2020 0957 Gross per 24 hour Intake 3525 ml Output 1400 ml Net 2125 ml Medications: sodium chloride 125 mL/hr at 11/24/20 0320 dextrose insulin regular human 100 Units Subcutaneous QAM AC insulin regular human 90 Units Subcutaneous Dinner metoclopramide 10 mg Intravenous Q6H ARIPiprazole 10 mg Oral Daily aspirin 81 mg Oral Daily dilTIAZem 180 mg Oral Daily FLUoxetine 40 mg Oral Daily lisinopril 40 mg Oral Daily megestrol 80 mg Oral BID miconazole Topical BID pantoprazole 40 mg Oral QAM AC atorvastatin 10 mg Oral Daily enoxaparin 40 mg Subcutaneous Daily insulin regular human 40 Units Subcutaneous Daily before lunch insulin regular 0-16 Units Subcutaneous TID AC Recent Labs 11/22/20 1827 11/23/20 03511/24/20318 WBC 9.6 8.9 6.9 HGB 12.0 11.2* 11.0* PLT 404 343 332 Recent Labs 11/23/20 03511/24/20 03111/24/20 1126 NA 133* 132* 133* K 4.8 4.8 4.3 CL 94* 97* 97* CO2 28 29 29 BUN 20 18 16 CREATININE 0.86 0.78 0.74 GLUCOSE 481* 308* 304* Recent Labs 11/23/20 0351 11/24/20 0319 11/24/20 1126 AST 31 25 31 ALT 42* 35* 36* BILITOT 0.6 0.6 0.6 ALKPHOS 136* 115 110 Objective: Vitals: BP (!) 177/85 Pulse 87 Temp 99.7 F (37.6 C) (Temporal) Resp 20 Ht 5' 6" (1.676 m) Wt (!) 323 lb 3.2 oz (146.6 kg) SpO2 93% BMI 52.17 kg/m General appearance: alert and cooperative with exam Lungs: clear to auscultation bilaterally Heart: regular rate and rhythm, S1, S2 normal, no murmur, click, rub or gallop, no chest wall tenderness Abdomen: soft, non-tender; bowel sounds normal; no masses, no organomegaly Extremities: Chronic LLE edema, + venous stasis changes, s/p R AKA Neurologic: No obvious focal neurologic deficits. Assessment and Plan: 1. Abdominal pain, diabetic gastroparesis, now on Reglan per GI. 2. Insulin-dependent diabetes with severe hyperglycemia, better now back on U500 insulin per Endocrinology 3. Chest pain, atypical,has had ekg and troponins ordered as well as Cardiology consult, received ASA and NTG 4. Dysfunctional uterine bleeding in transgender male, hx of endometrial hyperplasia, STEAM SHOVELMAN consulted 5. Morbid obesity, obstructive sleep apnea on no mask 6. S/p RLE AKA 7. HTN 8. HPL 9. Depression/schizophrenia/bipolar type 1 10. Hx of chronic LLE cellulitis/lymphedema 11. Debility Advance Directive: Full Code DVT prophylaxis lovenox 40 daily Discharge planning: SNF Active Problems: Hyperglycemia Diabetic hyperosmolar non-ketotic state (HCC) Resolved Problems: * No resolved hospital problems. * Kylah David MD [place], Neisha Villafuerte RN - 11/24/2020 11:43 AM [place] [facility] [employer] Coordinator called me to patients bedside at 11:15am to let me know patient was c/o chest pain. Upon assessment of patient(see vital signs) patient was stable with c/o substernal chest pain for the last 15 or so hours and states "I should have told someone earlier". Patient heart rhythm was normal, not diaphoretic and rated the pain a 9/10 on pain scale. He states pain goes from chest to gastric region off and on. I then left bedside to call Dr David since patient was stable. See orders for patient from physician. Upon NSR EKG patient states the SL Nitro helped the pain. Waiting for cardiology consult on patient since it was called by field secretary and Dr David will be at bedside this afternoon to further assess patient. He is stable at this time and I will continue to monitor with frequent rounding at bedside. Patient instructed to call me if pain worsens. Call light accessible to patient. * Maksim Lopez DTR - 11/24/2020 7:25 AM EST Nutrition rescreen complete. Pt assigned a level one for nutrition care. documented in this encounter* Jayson Hawthorne MD - 06/20/2019 10:09 AM EDT Progress Note [facility] Patient - Will Jacinto, Age - 53 y.o. - 1965 Room Number - 6125/255293 [facility] - [id number] Date of Admission - 06/14/2019 1:21 PM ASSESSMENT 1. R DM foot infection with osteomyelitis s/p R AKA 06/16/19 (Cx: MDR pseudomonas, enteric dorinda, anaerobic GPC) 2. Chronic LE lymphedema 3. DM2, uncontrolled 4. Chronic anemia 5. Bipolar disorder 6. MDRO Pseudomonas in April 2019 PLAN Monitor off antibiotics Monitor stump site Follow clinicially SUBJECTIVE: Pain at amputation site. Incision intact. Mild erythema not much changed. Denies f/c/n/v/d. Detailed ROS checked x 10 systems. All questions answered. OBJECTIVE VITALS height is 5' 6" (1.676 m) and weight is 348 lb 14.4 oz (158.3 kg) (abnormal). His temporal temperature is 99.5 F (37.5 C). His blood pressure is 125/65 and his pulse is 101. His respiration is 22 andoxygen saturation is 93%. Temp (24hrs), Av.5 F (36.9 C), Min:97.7 F (36.5 C), Max:99.5 F (37.5 C) General Appearance: alert and oriented x 3, NAD HEENT: wnl Neck: Supple Lungs: Clear to auscultation b/l on room air Cardiovascular: RRR Abdomen: Soft NT, ND, BS+ : no CVAT. No lewis catheter Neurologic: wnl, no focal deficits Skin: No rashes Extremities: LLE lymphedema and chronic VSD changes, no s/o infection. R AKA stump site with boo intact, drainage dried. Mild surrounding erythema. + TTP Lines: sites clean No joint inflammation MEDICATIONS: insulin regular human 100 Units Subcutaneous Dinner insulin regular human 100 Units Subcutaneous Daily before lunch insulin regular human 140 Units Subcutaneous QAM AC ARIPiprazole 10 mg Oral Daily aspirin 81 mg Oral Daily FLUoxetine 20 mg Oral Daily simvastatin 20 mg Oral Nightly sodium chloride flush 10 mL Intravenous 2 times per day enoxaparin 40 mg Subcutaneous Daily sodium chloride 75 mL/hr at 06/19/19 1240 dextrose LABS: CBC: No results for input(s): WBC, HGB, PLT in the last 72 hours. BMP: Recent Labs 06/18/1941606/19/1934306/20/19 0123 NA 135 135 139 K 4.2 5.7* 4.6 CL 100 101 105 CO2 26 24 26 BUN 29* 33* 30* CREATININE 1.53* 1.67* 1.18 GLUCOSE 108* 180* 85 Hepatic: Recent Labs 06/18/1941606/19/194 06/20/19 0123 ALKPHOS 94 126 124 ALT 44 54 57 AST 48* 71* 62* PROT 6.1* 6.8 6.4 BILITOT 0.5 0.6 0.4 LABALBU 3.3* 3.6 3.4* Lactic Acid: No results for input(s): LACTA in the last 72 hours. MICROBIOLOGY: reviewed IMAGING: Reviewed KRANTHI [facility] 06/20/2019 10:11 AM I personally saw and evaluated the patient. I reviewed the nurse practitioner note. I agree w theirassessment and plan unless otherwise noted. Jayson [facility] 06/20/2019 3:22 PM * Kyaw Waddell DO - 06/20/2019 8:32 AM EDT ENDOCRINOLOGY PROGRESS NOTE Patient: Will Jacinto Unit/Bed:61/460955 Date of : 1965 Admit date: 06/14/2019 Patient Seen,Chart, Consults notes, Labs, Radiology studies reviewed. Subjective: The patient is being followed for: DM2 s/p R AKA on 06/16 in setting of osteomyelitis complicated by retinopathy and neuropathy. Pt is off antibiotics. Currenly taking U-500 140/100/100. Home dose previously 170/150/150. States he is urinating normally and had a bowel movement 2 days ago that was like 3 bowel movements in one. All other ROSnegative except noted in HPI. Past, Family, Social History unchanged from admission. Diet: Dietary Nutrition Supplements: Wound Healing Oral Supplement DIET CARB CONTROL; Low Sodium (2 GM) Medications: Scheduled Meds: insulin regular human 100 Units Subcutaneous Dinner insulin regular human 100 Units Subcutaneous Daily before lunch insulin regular human 140 Units Subcutaneous QAM AC ARIPiprazole 10 mg Oral Daily aspirin 81 mg Oral Daily FLUoxetine 20 mg Oral Daily simvastatin 20 mg Oral Nightly sodium chloride flush 10 mL Intravenous 2 times per day enoxaparin 40 mg Subcutaneous Daily Continuous Infusions: sodium chloride 75 mL/hr at 06/19/19 1240 dextrose PRN Meds:morphine, phenol, oxyCODONE-acetaminophen OR oxyCODONE- acetaminophen, sodium chloride flush, glucose, dextrose, glucagon (rDNA), dextrose Objective: BMP: Recent Labs 06/18/19 0417 06/19/19 0344 06/20/19 0123 NA 135 135 139 K 4.2 5.7* 4.6 CL 100 101 105 CO2 26 24 26 BUN 29* 33* 30* CREATININE 1.53* 1.67* 1.18 GLUCOSE 108* 180* 85 Glucose: Recent Labs 06/18/19 0735 06/18/19 1146 06/18/19 1532 06/18/19 2027 06/19/19 0818 06/19/19 1124 06/19/19 1724 06/20/19 0738 POCGLU 156* 206* 207* 189* 222* 219* 135* 189* HgbA1C: No results for input(s): LABA1C in the last 72 hours. Hepatic: Recent Labs 06/20/19 0123 ALKPHOS 124 ALT 57 AST 62* PROT 6.4 BILITOT 0.4 LABALBU 3.4* Lipids: No results for input(s): CHOL, TRIG, HDL, LDLCALC in the last 72 hours. Invalid input(s): LDL Physical Exam: Vitals: BP 125/65 Pulse 101 Temp 99.5 F (37.5 C) (Temporal) Resp 22 Ht 5' 6" (1.676 m) Wt(!) 348 lb 14.4 oz (158.3 kg) SpO2 93% BMI 56.31 kg/m 24 hour intake/output: Intake/Output Summary (Last 24 hours) at 06/20/2019831 Last data filed at 06/19/2019 1544 Gross per 24 hour Intake 1450 ml Output Net 1450 ml Physical Exam Constitutional: He is oriented to person, place, and time. He appears well- developed and well-nourished. HENT: Head: Normocephalic. Eyes: EOM are normal. Cardiovascular: Normal rate, regular rhythm and normal heart sounds. Pulmonary/Chest: Effort normal and breath sounds normal. Musculoskeletal: [place] at r AKA are intact Faint erythema of left calf Neurological: He is alert and oriented to person, place, and time. Skin: Skin is warm. Assessment: Type 2 diabetes uncontrolled with complication. Nonhealing foot ulceration s/p right AKA. Hyperglycemia Insulin resistance Long-term insulin use. Morbid obesity. BMI 61.8 Transgender/Female identifying as a male. Plan: DM complicated with retinopathy and neuropathy -follows w -Home U500; 170/150/150 -Current U500: 140/100/100 -Continue regular ssi -inpt glucose goal 150 Associated attestation - Анна Villela MD - 06/20/2019 12:42 PM EDT I performed a history and physical examination of the patient and discussed the management with theNP/resident. I reviewed the patient's chart including pertinent history, medications, labs, radiology, and other reports. I reviewed the [employer]/resident's note and agree with the documented findings and plan of care (with summary/modifications noted if any). Pt is eating well. No new complaints. Some pain on the R LE stump. BG are overall stable. BG 135-85-189. Lab Results Component Value Date LABA1C 10.0 (H) 06/16/2019 Lab Results Component Value Date EAG 240 06/16/2019 PE: BP 105/74 Pulse 105 Temp 99.6 F (37.6 C) (Temporal) Resp 20 Ht 5' 6" (1.676 m) Wt (!) 348lb 14.4 oz (158.3 kg) SpO2 92% BMI 56.31 kg/m Obese, awake, alert, not in distress; RRR, no murmur, clear breath sounds, no rales, abdomen distended, soft, nontender, R AKA with incision clean and intact, no edema. Dx: Type 2 diabetes uncontrolled with complications with long-term insulin use. Nonhealing foot ulceration s/p right AKA Insulin resistance Morbid obesity with Body mass index is 56.31 kg/m . Transgender Female identifying as a male Plan: Insulin doses adjusted today Continue U-500 140-100-100. Closely monitor BG. Adjust doses as necessary. Counseled patient regarding importance of adequate glycemic control. Management of hypoglycemia per protocol. Noted likely DC back to [place]. Anticipated homegoing regimen: U-500 160-125-125 TID (given different diet at the [place]). FU with Endocrinology outpatient - pt prefers closer to [place]. Time spent with patient over 51% total time 25 minutes which includes review of records, counseling, management, and coordination of care as documented in note. * Davie Frankel MD - 06/19/2019 11:56 AM EDT Hospitalist Progress Note 06/19/2019 11:57 AM [id number]: Please page me for patient care issues. [phone]: Please page [facility] night Hospitalist for any issues. Subjective: Admit Date: 06/14/2019 PCP: Jared Guzman MD Room#: [id number] Interval History: No new issues per pt Dietary Nutrition Supplements: Wound Healing Oral Supplement DIET CARB CONTROL; Low Sodium (2 GM) Patient Vitals for the past 96 hrs (Last 3 readings): Weight 06/19/19 0611 (!) 348 lb 14.4 oz (158.3 kg) 06/16/19 0450 (!) 378 lb 1.6 oz (171.5 kg) Medications: sodium chloride 50 mL/hr at 06/18/19 1545 dextrose insulin regular human 100 Units Subcutaneous Dinner insulin regular human 100 Units Subcutaneous Daily before lunch insulin regular human 135 Units Subcutaneous QAM AC ARIPiprazole 10 mg Oral Daily aspirin 81 mg Oral Daily FLUoxetine 20 mg Oral Daily lisinopril 40 mg Oral Daily simvastatin 20 mg Oral Nightly insulin regular 0-16 Units Subcutaneous TID AC sodium chloride flush 10 mL Intravenous 2 times per day enoxaparin 40 mg Subcutaneous Daily LABS: CBC: Recent Labs 06/17/19 040 WBC 13.3* RBC 3.26* HGB 7.6* HCT 24.8* MCV 76.1* RDW 22.4* PLT 403 BMP: Recent Labs 06/17/19 0409 06/17/19 1310 06/18/19 04106/19/19 0344 NA 134* -- 135 135 K 5.3* 5.4* 4.2 5.7* CL 98 -- 100 101 CO2 21* -- 26 24 BUN 25* -- 29* 33* CREATININE 0.94 -- 1.53* 1.67* GLUCOSE 399* -- 108* 180* CALCIUM 8.5 -- 8.7 9.0 ANIONGAP 14 -- 10 10 LIVER PROFILE: Recent Labs 06/17/19 04006/18/19 04106/19/19 0344 AST 34 48* 71* ALT 30 44 54 BILITOT 0.7 0.5 0.6 ALKPHOS 121 94 126 LABALBU 3.7 3.3* 3.6 PROT 6.6 6.1* 6.8 PT/INR: No results for input(s): PROTIME, INR in the last 72 hours. CARDIAC ENZYMES: No results for input(s): TROPONINI in the last 72 hours. Procalcitonin: Lab Results Component Value Date PROCAL 0.32 06/19/2019 Objective: Vitals: BP 106/61 Pulse 110 Temp 98.7 F (37.1 C) (Temporal) Resp 19 Ht 5' 6" (1.676 m) Wt(!) 348 lb 14.4 oz (158.3 kg) SpO2 91% BMI 56.31 kg/m Pulse Ox: SpO2 Av.6 % Min: 91 % Max: 99 % Supplemental O2: O2 Flow Rate (L/min): 2 L/min General appearance: No apparent distress, HEENT: Eyes: No scleral icterus No pallor Oral: Tongue is semi-moist Cardiovascular: S1S2 heard, RRR Respiratory: Decrease breath sound both bases Abdomen: Soft, non-tender, non-distended with normal bowel sounds. Musculoskeletal: No obvious deformities seen Skin: No visible rashes or lesions. Neurology- no focal neurology,Awake alert Extremity- right AKA Assessment Right diabetic foot/OM s/p AKA diabetes type 2 uncontrolled obesity Hyperkalemia NOY Post op anemia Plan Observe off antibiotic per infectious disease status post above-knee amputation Orthopedic surgery following endocrine following, managing blood sugars Cr still rising today, I/O not recorded DC MARY Cont IVF Follow BMP Advance Directive: Full Code Discharge planning: to [facility] Davie Frankel MD Division of Hospitalist Medicine Inpatient Medical Services * Theo Billingsley MD - 06/19/2019 9:46 AM EDT Progress Note [facility] Patient - Will Jacinto, Age - 53 y.o. - 1965 Room Number - [id number] [id number] Date of Admission - 06/14/2019 1:21 PM ASSESSMENT 1. R DM foot infection with osteomyelitis s/p R AKA 06/16/19 (Cx: MDR pseudomonas) 2. Chronic LE lymphedema 3. DM2, uncontrolled 4. Chronic anemia 5. Bipolar disorder 6. MDRO Pseudomonas in April 2019 PLAN Monitor off antibiotics Monitor stump site Follow clinicially SUBJECTIVE: Reporting pain at amputation site. Incision examined with boo intact. No erythema. Denies f/c/n/v/d OBJECTIVE VITALS height is 5' 6" (1.676 m) and weight is 348 lb 14.4 oz (158.3 kg) (abnormal). His temporal temperature is 99.4 F (37.4 C). His blood pressure is 106/52 (abnormal) and his pulse is 113. His respiration is 20 and oxygen saturation is 92%. Temp (24hrs), Av.5 F (36.9 C), Min:97.8 F (36.6 C), Max:99.4 F (37.4 C) General Appearance: alert and oriented x 3, NAD HEENT: wnl Neck: Supple Lungs: Clear to auscultation b/l on room air Cardiovascular: RRR Abdomen: Soft NT, ND, BS+ : no CVAT. No lewis catheter Neurologic: wnl, no focal deficits Skin: No rashes Extremities: LLE lymphedema and chronic VSD changes, no s/o infection. R AKA stump site with boo intact, no surrounding. Mild serosang drainage. Lines: sites clean No joint inflammation MEDICATIONS: insulin regular human 90 Units Subcutaneous Daily before lunch insulin regular human 135 Units Subcutaneous QAM AC insulin regular human 90 Units Subcutaneous Dinner ARIPiprazole 10 mg Oral Daily aspirin 81 mg Oral Daily FLUoxetine 20 mg Oral Daily lisinopril 40 mg Oral Daily simvastatin 20 mg Oral Nightly insulin regular 0-16 Units Subcutaneous TID AC sodium chloride flush 10 mL Intravenous 2 times per day enoxaparin 40 mg Subcutaneous Daily sodium chloride 50 mL/hr at 06/18/19 1545 dextrose LABS: CBC: Recent Labs 06/17/19 0409 WBC 13.3* HGB 7.6* PLT 403 BMP: Recent Labs 06/17/19 0409 06/17/19 1310 06/18/19 0417 06/19/19 0344 NA 134* -- 135 135 K 5.3* 5.4* 4.2 5.7* CL 98 -- 100 101 CO2 21* -- 26 24 BUN 25* -- 29* 33* CREATININE 0.94 -- 1.53* 1.67* GLUCOSE 399* -- 108* 180* Hepatic: Recent Labs 06/17/19 0409 06/18/19 0417 06/19/19 0344 ALKPHOS 121 94 126 ALT 30 44 54 AST 34 48* 71* PROT 6.6 6.1* 6.8 BILITOT 0.7 0.5 0.6 LABALBU 3.7 3.3* 3.6 Lactic Acid: No results for input(s): LACTA in the last 72 hours. MICROBIOLOGY: reviewed IMAGING: Reviewed KRANTHI [facility] 06/19/2019 9:49 AM I personally saw and evaluated the patient. I reviewed the nurse practitioner note. I agree w theirassessment and plan unless otherwise noted. Theo Billingsley MD [facility] 06/19/2019 2:08 PM * Elle Knutson, TAPROOM ATTENDANT - 06/19/2019 9:24 AM EDT Physical Therapy Facility/Department: [facility] Daily Treatment Note NAME: Will Jacinto : 1965 Date of Service: 06/19/2019 Discharge Recommendations: Subacute/Snf Facility Assessment Body structures, Functions, Activity limitations: Decreased functional mobility ;Decreased ADL status;Decreased ROM;Decreased sensation;Decreased strength;Decreased balance;Decreased safe awareness;Increased Pain;Decreased endurance Assessment: Pt with increased pain in Right residual limb with all functional mobility. Increased seeping noted from insision during session, gown changed. Pt is currently at [place] lift level for transfers for safety of pt and staff. Two skilled therapist needed for session due to amount of assist pt requires. Likely will need to address slideboard transfers when pain is more controlled. Currently recommend SNF. Prognosis: Fair Decision Making: Medium Complexity REQUIRES PT FOLLOW UP: Yes Activity Tolerance Activity Tolerance: Patient limited by pain Patient Diagnosis(es): The primary encounter diagnosis was Diabetic foot infection (HCC). Diagnosesof Lactic acidosis and Morbid obesity (HCC) were also pertinent to this visit. has a past medical history of Abnormal uterine bleeding (AUB), Bipolar 1 disorder (HCC), Depression, Depression, Diabetes mellitus (HCC), Hypertension, Morbidly obese (HCC), and Osteomyelitis (HCC). 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 Restrictions Restrictions/Precautions Restrictions/Precautions: Weight Bearing, Fall Risk, Up as Tolerated Lower Extremity Weight Bearing Restrictions Right Lower Extremity Weight Bearing: Non Weight Bearing Position Activity Restriction Other position/activity restrictions: Pt on RA Subjective General Chart Reviewed: Yes Additional Pertinent Hx: DM Family / Caregiver Present: No Subjective Subjective: pt in bed, agrees to PT. Pleasant and cooperative. Goes by "Maria Luisa." Pain Screening Patient Currently in Pain: Yes Pain Assessment Pain Assessment: 0-10 Pain Level: 6 Pain Type: Acute pain Pain Location: Leg Pain Orientation: Right Pain Radiating Towards: reports no phatom pain, pain is in residual limb/incision line Vital Signs Patient Currently in Pain: Yes Orientation Orientation Overall Orientation Status: Within Normal Limits Objective Bed mobility Rolling to Left: Maximum assistance Rolling to Right: Maximum assistance Supine to Sit: Maximum assistance;2 Person assistance Sit to Supine: Maximum assistance;2 Person assistance Scooting: Dependent/Total;2 Person assistance Transfers Sit to Stand: Dependent/Total;2 Person Assistance(pt not able to get bottom off bed at all) Ambulation Ambulation?: No Balance Comments: Pt sat EOB for at least 10 minutes with close supervision. Unable to scoot right hip forward to be squared up at EOB. Tends to keep weight on left hip. Exercises Knee Long Arc Quad: x10 LLE, cues to slow down and try to get more extension at left knee. Ankle Pumps: x10 LLE Goals Short term goals Time Frame for Short term goals: 2 wks Short term goal 1: bed mobility min assist, PROGRESSING Short term goal 2: sit-stand transfer mod assist, PROGRESSING SLOWLY Short term goal 3: stand pivot transfer mod assist, NOT ADDRESSED Short term goal 4: slideboard transfer mod assist, NOT ADDRESSED Short term goal 5: wc mobility x150' mod indep, NOT ADDRESSED Patient Goals Patient goals : wants to be able to walk again Plan Plan Times per week: 5-7x Plan weeks: 2 Current Treatment Recommendations: Strengthening, ROM, Balance Training, Functional Mobility Training, Transfer Training, Endurance Training, Equipment Evaluation, Education, & procurement, Positioning, Safety Education & Training Plan Comment: AKA protocol, RLE NWB Safety Devices Type of devices: All fall risk precautions in place, Call light within reach, Patient at risk for falls, Left in bed, Nurse notified Restraints Initially in place: No Therapy Time Individual Concurrent Group Co-treatment Time In 833 Time Out 0900 Minutes 26 Timed Code Treatment Minutes: 26 Minutes(FA x 2) Elle Knutson PTA * Linda Cameron, OT - 06/19/2019 9:21 AM EDT Occupational Therapy Occupational Therapy Initial Assessment Date: 06/19/2019 Patient Name: Will Jacinto : 1965 Date of Service: 06/19/2019 Discharge Recommendations: Subacute/Snf Facility Assessment Performance deficits / Impairments: Decreased functional mobility ;Decreased ADL status;Decreased ROM;Decreased strength;Decreased safe awareness;Decreased cognition;Decreased endurance;Decreased balance;Decreased coordination Assessment: OT eval completed. Pt presents with above deficits limitng functional indep. Pt is a falls and safety risk. Recommend SNF upon discharge to maximize indep and safety with ADL and transfers. Prognosis: Fair Decision Making: Medium Complexity Exam: [facility] OT Education: OT Role;Plan of Care;Transfer Training;Orientation REQUIRES OT FOLLOW UP: Yes Activity Tolerance Activity Tolerance: Patient limited by pain Safety Devices Safety Devices in place: Yes Type of devices: Patient at risk for falls;Left in bed;Call light within reach;Nurse notified Restraints Initially in place: No Patient Diagnosis(es): The primary encounter diagnosis was Diabetic foot infection (HCC). Diagnosesof Lactic acidosis and Morbid obesity (HCC) were also pertinent to this visit. has a past medical history of Abnormal uterine bleeding (AUB), Bipolar 1 disorder (HCC), Depression, Depression, Diabetes mellitus (HCC), Hypertension, Morbidly obese (HCC), and Osteomyelitis (HCC). 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 Subjective Subjective: Pt reclined in bed, agreeable to OT eval. General Comment Comments: R hand dominant Patient Currently in Pain: Yes Pain Assessment Pain Assessment: 0-10 Pain Level: 6 Pain Type: Acute pain Pain Location: Leg Pain Orientation: Right Pain Radiating Towards: reports no phatom pain, pain is in residual limb/incision line Functional Pain Assessment: Prevents or interferes with all active and some passive activities Non-Pharmaceutical Pain Intervention(s): Ambulation/Increased Activity;Repositioned Response to Pain Intervention: Patient Satisfied Social/Functional History Social/Functional History Lives With: Other (comment) Type of Home: Facility([facility]) Home Layout: One level Home Access: Level entry Bathroom Shower/Tub: Walk-in shower, Shower chair with back Bathroom Toilet: Handicap height Bathroom Equipment: Grab bars in shower, Shower chair Bathroom Accessibility: Wheelchair accessible Home Equipment: 4 wheeled walker, Electric scooter, Wheelchair-manual Receives Help From: brand attendant ADL Assistance: Needs assistance Homemaking Assistance: (provided by facility) Homemaking Responsibilities: No Ambulation Assistance: Independent(has been using wc 3-4 years) Transfer Assistance: Independent Active Instructional Media Services Technician: No Patient's Instructional Media Services Technician Info: facility, [facility] transport Mode of Transportation: Bus, Van Education: NA Occupation: On disability Type of occupation: NA Leisure & Hobbies: NA IADL Comments: needs assistance Additional Comments: pt reports he has not walked in 3-4 years, primarily uses wc. Indep w/ transfers. Assist w/ ADLs. Objective Vision: Impaired Vision Exceptions: (pt reports blurry vision and states he had glasses but no longer owns them. Pt able to read clock on wall. ) Hearing: Within functional limits Orientation Overall Orientation Status: Within Functional Limits Observation/Palpation Posture: Fair Observation: R AKA boo, bandage removed, R residual limb seeping Balance Sitting Balance: Minimal assistance(SBA static sitting but min assist for dynamic) Standing Balance: Unable to assess(comment) Standing Balance Activity: Pt sat EOB x15 mins while back washed and linen/pads changed. Treatment initiated. ADL Feeding: Independent Grooming: Moderate assistance UE Bathing: Moderate assistance LE Bathing: Dependent/Total UE Dressing: Moderate assistance LE Dressing: Dependent/Total Toileting: Dependent/Total Additional Comments: Mod assist to change hospital gown. All other levels estimated. Tone RUE RUE Tone: Normotonic Tone LUE LUE Tone: Normotonic Coordination Movements Are Fluid And Coordinated: No Coordination and Movement description: Right UE;Left UE;Decreased speed;Decreased accuracy;Gross motor impairments;Fine motor impairments Quality of Movement Other Comment: can oppose all digits but slower speed Bed mobility Rolling to Left: Maximum assistance Rolling to Right: Maximum assistance Supine to Sit: Maximum assistance;2 Person assistance Sit to Supine: Maximum assistance;2 Person assistance Scooting: Dependent/Total;2 Person assistance Comment: HOB elevated to sit but flat to return supine, pt unable to scoot R hip forward. Treatmentinitiated. Transfers Transfer Comments: attempted to stand with assist of 2 therapists but pt only able to take wt off buttocks never truely getting buttocks off bed. Cognition Overall Cognitive Status: Exceptions Arousal/Alertness: Appropriate responses to stimuli Following Commands: Follows one step commands with increased time;Follows one step commands with repetition Attention Span: Appears intact Memory: Decreased short term memory;Decreased recall of recent events Insights: Decreased awareness of deficits Initiation: Requires cues for some Sequencing: Requires cues for some Cognition Comment: fair historian and frequently confusing dates. 2/3 word recall after 1 min, ID'sDOB, age and president. Sensation Overall Sensation Status: Impaired Additional Comments: neuropathy in LLE LUE PROM (degrees) LUE General PROM: 110 degrees shldr, distal WFL to body habitus LUE AROM (degrees) LUE General AROM: 1/2 shldr, distal WFL to body habitus RUE PROM (degrees) RUE General PROM: 110 degrees shldr, distal WFL to body habitus RUE AROM (degrees) RUE General AROM: 1/2 shldr, distal WFL to body habitus LUE Strength LUE Strength Comment: 3-/5 shldr, distal 4-/5 RUE Strength RUE Strength Comment: 3-/5 shldr, distal 4-/5 Plan Plan Times per week: 3-5x Plan weeks: 2 weeks Current Treatment Recommendations: Strengthening, ROM, Balance Training, Functional Mobility Training, Endurance Training, Pain Management, Safety Education & Training, Patient/Caregiver Education & Training, Equipment Evaluation, Education, & procurement, Positioning, Self-Care / ADL, Home Management Training, Cognitive/Perceptual Training OutComes Score AM-PAC Daily Activity Inpatient How much help for putting on and taking off regular lower body clothing?: Total How much help for Bathing?: A Lot How much help for Toileting?: Total How much help for putting on and taking off regular upper body clothing?: A Lot How much help for taking care of personal grooming?: A Little How much help for eating meals?: None AM-PAC Inpatient Daily Activity Raw Score: 13 AM-PAC Inpatient ADL T-Scale Score : 32.03 ADL Inpatient CMS 0-100% Score: 63.03 ADL Inpatient CMS G-Code Modifier : CL Goals Short term goals Time Frame for Short term goals: 2 weeks Short term goal 1: Mod assist LE dressing Short term goal 2: Supv UE dressing Short term goal 3: Sliding board transfer to BSC or chair with min assist Short term goal 4: Demo AROM WFL with 4/5 strength Patient Goals Patient goals : none stated Therapy Time Individual Concurrent Group Co-treatment Time In 824 Time Out 902 Minutes 38 Timed Code Treatment Minutes: 25 Minutes(FA 2) Goals and/or treatment plan was established in collaboration with patient/family/other representatives. Patient's Occupational Therapy Plan of Care supervision is transferred to [facility] Occupational Therapist. Pt requires skill of 2 therapists for safety and positioning. Linda Cameron OTR/L * Kerri Morales MD - 06/19/2019 8:16 AM EDT Department of Internal Medicine Section of Endocrinology Resident Progress Note SUBJECTIVE: Admit date: 06/14/2019 Admitted w/: Right foot wound requiring AKA Original Endocrine Consult date: 06/15/19 OutPt District Sales Coordinator: None Lab Results Component Value Date LABA1C 10.0 (H) 06/16/2019 Lab Results Component Value Date EAG 240 06/16/2019 Lab Results Component Value Date CREATININE 1.67 (H) 06/19/2019 Pre-Admission Home DM regimen: U500 pen 170/150/150 Since last inpatient Endocrine encounter patient reports: Patient did well overnight. Complained of some incisional pain in the site of his AKA. Overall doing fine though. Patient at breakfast at approximately 7AM yesterday and lunch at around 8AM. Patient denies ever eating dinner yesterday. He has been tolerating meals without any nausea or vomiting. Patient has received his scheduled dosages of insulin and sliding scale as shown below. No events of hypoglycemia. Current Insulin regimen: U 500 pen 135//90/90 Insulin regular 0-16U sliding scale Inpt glucocorticoid use: [] YES [x] NO Glucose and Insulin Review: Glucose Review: Results for WILL JACINTO" ( ) as of 06/19/2019 08:23 Ref. Range 06/18/2019 07:35 06/18/2019 11:46 06/18/2019 15:32 06/18/2019 20:27 06/19/2019 03:44 06/19/2019 08:18 POC Glucose Latest Ref Range: 70 - 100 mg/dL 156 (H) 206 (H) 207 (H) 189 (H) 222 (H) Insulin Review: Insulin Regular 4 U @ 8:34 AM on June 18 Insulin Regular 120U @ 8:35 AM on June 18 Insulin Regular 6U @ 1318 on June 18 Insulin Regular 90 @1319 on June 18 Insulin Regular 6U @ 1740 on June 18 Insulin Regular 90U @ 1741 on June 18 Hypoglycemia Event(s) in the past 24 hrs: [] Yes [x] No Other notes in EMR reviewed: [x]YES, [] NO Tolerating PO intake: [x] Yes [] No PO intake: More than at home []; Same as at home []; Less than at home [x] diabetic diet and Low sodium and dietary nutrition supplements Conor BID Current Inpatient Medications Current Facility-Administered Medications: insulin regular human (humuLIN R U- 500 KWIKPEN) 500 UNIT/ML concentrated injection pen 90 Units, 90 Units, Subcutaneous, Daily before lunch insulin regular human (humuLIN R U-500 KWIKPEN) 500 UNIT/ML concentrated injection pen 135 Units, 135 Units, Subcutaneous, QAM AC 0.9 % sodium chloride infusion, , Intravenous, Continuous morphine sulfate (PF) injection 2 mg, 2 mg, Intravenous, Q4H PRN phenol 1.4 % mouth spray 1 spray, 1 spray, Mouth/Throat, Q2H PRN oxyCODONE-acetaminophen (PERCOCET) 5-325 MG per tablet 1 tablet, 1 tablet, Oral, Q4H PRN OR oxyCODONE-acetaminophen (PERCOCET) 5-325 MG per tablet 2 tablet, 2 tablet, Oral, Q4H PRN insulin regular human (humuLIN R U-500 KWIKPEN) 500 UNIT/ML concentrated injection pen 90 Units, 90Units, Subcutaneous, Dinner ARIPiprazole (ABILIFY) tablet 10 mg, 10 mg, Oral, Daily aspirin EC tablet 81 mg, 81 mg, Oral, Daily FLUoxetine (PROZAC) capsule 20 mg, 20 mg, Oral, Daily lisinopril (PRINIVIL;ZESTRIL) tablet 40 mg, 40 mg, Oral, Daily simvastatin (ZOCOR) tablet 20 mg, 20 mg, Oral, Nightly insulin regular (HUMULIN R;NOVOLIN R) injection 0-16 Units, 0-16 Units, Subcutaneous, TID AC sodium chloride flush 0.9 % injection 10 mL, 10 mL, Intravenous, 2 times per day sodium chloride flush 0.9 % injection 10 mL, 10 mL, Intravenous, PRN enoxaparin (LOVENOX) injection 40 mg, 40 mg, Subcutaneous, Daily glucose (GLUTOSE) 40 % oral gel 15 g, 15 g, Oral, PRN dextrose 50 % IV solution, 12.5 g, Intravenous, PRN glucagon (rDNA) injection 1 mg, 1 mg, Intramuscular, PRN dextrose 5 % solution, 100 mL/hr, Intravenous, PRN Subjective: Review of Systems Constitutional: Negative for activity change, appetite change, chills, diaphoresis, fatigue and fever. HENT: Negative for congestion, rhinorrhea and sore throat. Eyes: Negative for photophobia and visual disturbance. Respiratory: Negative for apnea, cough, choking, chest tightness, shortness of breath, wheezing andstridor. Cardiovascular: Negative for chest pain, palpitations and leg swelling. Gastrointestinal: Negative for abdominal distention, abdominal pain, constipation, diarrhea, nauseaand vomiting. Endocrine: Negative for polyphagia and polyuria. Genitourinary: Negative for difficulty urinating, dysuria, flank pain and frequency. Musculoskeletal: Negative for arthralgias, back pain, gait problem and joint swelling. Skin: Negative for color change and pallor. Neurological: Negative for dizziness, weakness, light-headedness, numbness and headaches. Objective: Physical VITALS: BP (!) 106/52 Pulse 113 Temp 99.4 F (37.4 C) (Temporal) Resp 20 Ht 5' 6" (1.676 m) Wt (!) 348 lb 14.4 oz (158.3 kg) SpO2 92% BMI 56.31 kg/m TEMPERATURE: Current - Temp: 99.4 F (37.4 C); Max - Temp Av.5 F (36.9 C) Min: 97.8 F (36.6 C) Max: 99.4 F (37.4 C) RESPIRATIONS RANGE: Resp Av.5 Min: 18 Max: 20 PULSE RANGE: Pulse Av Min: 56 Max: 134 BLOOD PRESSURE RANGE: Systolic (24hrs), Av , Min:92 , Max:125 ; Diastolic (24hrs), Av, Min:52, Max:65 PULSE OXIMETRY RANGE: SpO2 Av.3 % Min: 92 % Max: 99 % 24HR INTAKE/OUTPUT: No intake or output data in the 24 hours ending 06/19/19 0824 Physical Exam Constitutional: He is oriented to person, place, and time. He appears well- developed and well-nourished. No distress. Obese HENT: Head: Normocephalic and atraumatic. Eyes: Pupils are equal, round, and reactive to light. EOM are normal. Neck: Normal range of motion. Neck supple. No JVD present. No tracheal deviation present. No thyromegaly present. Cardiovascular: Normal rate and regular rhythm. Exam reveals no gallop and no friction rub. No murmur heard. Heart sounds distant Pulmonary/Chest: Effort normal and breath sounds normal. No stridor. No respiratory distress. He has no wheezes. He exhibits no tenderness. Abdominal: Soft. He exhibits no distension. There is no tenderness. There is no guarding. Musculoskeletal: He exhibits tenderness (appropriate tenderness to palpation). He exhibits no edemaor deformity. Right extremity AKA wound nonserosanguinous. Wound clean, and dry. Neurological: He is alert and oriented to person, place, and time. No cranial nerve deficit or sensory deficit. Skin: Skin is warm and dry. No rash noted. He is not diaphoretic. No erythema. No pallor. DATA Results for WILL JACINTO" ( ) as of 06/19/2019 08:23 Ref. Range 06/19/2019 03:44 Sodium Latest Ref Range: 135 - 145 mmol/L 135 Potassium Latest Ref Range: 3.5 - 5.1 mmol/L 5.7 (H) Chloride Latest Ref Range: 98 - 107 mmol/L 101 CO2 Latest Ref Range: 22 - 30 mmol/L 24 BUN Latest Ref Range: 7 - 20 mg/dL 33 (H) Creatinine Latest Ref Range: 0.52 - 1.25 mg/dL 1.67 (H) Anion Gap Latest Units: NA 10 eGFR Latest Ref Range: >60 mL/min 38.9 EGFR IF NonAfrican [place] Latest Ref Range: >60 mL/min 32.1 Glucose Latest Ref Range: 70 - 100 mg/dL 180 (H) Calcium Latest Ref Range: 8.4 - 10.4 mg/dL 9.0 Total Protein Latest Ref Range: 6.3 - 8.2 g/dL 6.8 Procalcitonin Latest Ref Range: <0.10 ng/mL 0.32 (A) Results for WILL JACINTO" ( ) as of 06/19/2019 08:23 Ref. Range 05/16/2019 20:30 06/16/2019 15:26 Hemoglobin A1C Latest Ref Range: 4.0 - 5.7 % 10.6 (H) 10.0 (H) Impression: I reviewed: [x] laboratory results [x] radiographic results At the time oftoday's encounter. Pt was advised of the results. ASSESSMENT: 1. Type II Diabetes Mellitus 2. Nonhealing foot ulceration s/p right AKA 3. Hyperglycemia 4. Insulin resistance 5. Long-term insulin use 6. Morbid obesity 7. BMI 61.8 8. Transgender/Female identifying as male PLAN: The inpt antihyperglycemic regimen will be as follows: Continue U500 135/90/90 Continue regular insulin sliding scale Inpt GMF glucose goal 150. Inpt ICU glucose goal 150. Outpt goal A1C = 7%. Insulin is necessary for ongoing mgmt. FSBS to occur qAC/HS/PRN for s/s of hyper-/hypoglycemia. FSBS data will be used to determine the next steps in antihyperglycemic medication titration duringhospital stay. If hypoglycemia were to occur itshould be treated per hospital protocol. Diet recommendation: Carbohydrate controlled 60 g limit no juice trays once able If the pt is to bedischarged from the hospital I recommend: Patient will be discharged on U 500 insulin. Doses to be determined. Please page the on-call District Sales Coordinator if there arequestions regarding Endocrine DC recommendations. If there are any questions or concerns related to the info please page the vp organizational development consultant rn directly. [facility] information [facility]. We appreciate the opportunity to participate in this pt's ongoing medical care. Associated attestation - Asuncion Garibay DO - 06/19/2019 3:50 PM EDT Attending Supervising Physician s Attestation Statement I saw and evaluated the patient. I discussed the findings and plans with resident physician and agree as documented in his note except for Any additional information noted in my attestation Patient denies any complaints. Patient says that he has pain at his right leg stump but denies any phantom pains. Patient denies any questions about his diabetes care at this time. Obese adult patient lying supine in bed answering questions in a limited fashion. No acute distress. Alert and oriented 3. Normocephalic atraumatic. External ears normal to inspection. No scleral icterus or injection. Moist membranes. Nonlabored respirations. ASSESSMENT: Type 2 diabetes uncontrolled with complication. Nonhealing foot ulceration s/p right AKA. Hyperglycemia Insulin resistance Long-term insulin use. Morbid obesity. BMI 61.8 Transgender/Female identifying as a male. Plan: Change U500 insulin to 140/100/100 Continue regular sliding scale If there are any questions or concerns related to the info in this progress note please page the oncall consultant rn directly. On-Call information can be found in the [facility] Online Directory. We can also be reached by [email or web address] system. We appreciate the opportunity to participate in this pt's ongoing medical care. My colleague Dr. Villela will be taking over the inpatient Endocrinology service as of 06/20/19. I spent 25 minutes with the pt which involved more than 51% of the time in coordination of care, medical evaluation, review of records, and/or counseling of the pt regarding her condition/disease state/prognosis on the date of this note. Portions of the information within this encounter were entered using an electronic dictation system. Best attempts were made to edit/proofread the information prior to note completion. Despite the review of information, some errors may remain. If there are questions related to the information contained within the note please contact the signing physician directly. * Crystal Mullins MD - 06/18/2019 2:31 PM EDT Hospitalist Progress Note 06/18/2019 2:31 PM [phone]: Please page me for patient care issues. [phone]: Please page IMS night Hospitalist for any issues. Subjective: Admit Date: 06/14/2019 PCP: Jared Guzman MD Room#: [id number] Interval History: Patient seen and examined No new event overnight patient complaining pain at the amputation site. No chest pain shortness of breath.aaron po Dietary Nutrition Supplements: Wound Healing Oral Supplement DIET CARB CONTROL; Low Sodium (2 GM) Patient Vitals for the past 96 hrs (Last 3 readings): Weight 06/16/19 0450 (!) 378 lb 1.6 oz (171.5 kg) Medications: sodium chloride dextrose insulin regular human 90 Units Subcutaneous Daily before lunch [START ON 06/19/2019] insulin regular human 135 Units Subcutaneous QAM AC insulin regular human 90 Units Subcutaneous Dinner ARIPiprazole 10 mg Oral Daily aspirin 81 mg Oral Daily FLUoxetine 20 mg Oral Daily lisinopril 40 mg Oral Daily simvastatin 20 mg Oral Nightly insulin regular 0-16 Units Subcutaneous TID AC sodium chloride flush 10 mL Intravenous 2 times per day enoxaparin 40 mg Subcutaneous Daily LABS: CBC: Recent Labs 06/16/19 0358 06/16/19 0641 06/17/19 0409 WBC disregard* 6.7 13.3* RBC disregard* 3.71* 3.26* HGB disregard* 8.8* 7.6* HCT disregard* 28.2* 24.8* MCV disregard* 76.0* 76.1* RDW disregard* 22.9* 22.4* PLT -- 372 403 BMP: Recent Labs 06/16/19 0358 06/17/19 0409 06/17/19 1310 06/18/19 0417 NA 131* 134* -- 135 K 4.9 5.3* 5.4* 4.2 CL 98 98 -- 100 CO2 23 21* -- 26 BUN 31* 25* -- 29* CREATININE 0.87 0.94 -- 1.53* GLUCOSE 385* 399* -- 108* CALCIUM 8.6 8.5 -- 8.7 ANIONGAP 11 14 -- 10 LIVER PROFILE: Recent Labs 06/16/19 0358 06/16/19 1526 06/17/19 0409 06/18/19 0417 AST 29 -- 34 48* ALT 28 -- 30 44 BILITOT 0.7 -- 0.7 0.5 ALKPHOS 167* -- 121 94 LABALBU 3.5 3.9 3.7 3.3* PROT 6.5 -- 6.6 6.1* PT/INR: No results for input(s): PROTIME, INR in the last 72 hours. CARDIAC ENZYMES: No results for input(s): TROPONINI in the last 72 hours. Procalcitonin: Lab Results Component Value Date PROCAL 0.11 06/17/2019 Objective: Vitals: BP (!) 108/37 Pulse 97 Temp 99.3 F (37.4 C) (Temporal) Resp 20 Ht 5' 6" (1.676 m) Wt (!) 378 lb 1.6 oz (171.5 kg) SpO2 98% BMI 61.03 kg/m Pulse Ox: SpO2 Av % Min: 96 % Max: 98 % Supplemental O2: O2 Flow Rate (L/min): 2 L/min General appearance: No apparent distress, HEENT: Eyes: No scleral icterus No pallor Oral: Tongue is semi-moist Cardiovascular: S1S2 heard, RRR Respiratory: Decrease breath sound both bases Abdomen: Soft, non-tender, non-distended with normal bowel sounds. Musculoskeletal: No obvious deformities seen Skin: No visible rashes or lesions. Neurology- no focal neurology,Awake alert Extremity- right AKA Assessment Right diabetic foot/OM s/p AKA diabetes type 2 uncontrolled obesity Hyperkalemia NOY Post op anemia Plan Observe off antibiotic per infectious disease status post above-knee amputation Orthopedic surgery following endocrine following, managing blood sugars D/ lasix Gentle IVFS Stool for occ blood follow labs continue morphine for pain On DVT/ GI prophylaxis Labs ordered for AM Patient was informed about all work up and treatment plan Discussed with nursing staff Advance Directive: Full Code Discharge planning: CRYSTAL MULLINS MD Division of Hospitalist Medicine Inpatient Medical Services PAGER: [phone] * Allison Coleman, RD, LD - 06/18/2019 1:14 PM EDT Nutrition Assessment Type and Reason for Visit: Initial, Positive Nutrition Screen(Uncontrolled DM/ Wounds ) Nutrition Recommendations: 1. Continue CHO Controlled (60g/meal) diet as ordered. Per MNT protocol, will add Low Sodium (2gm) restriction to aid in fluid management. 2. Per MNT protocol, will initiate Conor BID to promote wound healing after R AKA (1 packet= 14g AA's, 2.5 grams of protein, 90-95 kcals per serving). Monitor ONS tolerance. 3. Please record pt's % oral intakes of meals/ONS for continued assessment of nutritional status. 4. Consider addition of daily MVI and Vit C to promote skin integrity/wound healing. 5. Pt declined diet education at this time. Recent A1c 10.0% (06/16/19). Pt motivation toward dietarymodification appears low at this time. 6. RD to monitor pt's % oral intakes of meals/ONS, wt, skin integrity/ wound healing, labs, I/O's, pt's receptiveness toward diet education prior to d/c. Nutrition Assessment: Pt s/p R AKA after worsening DM R foot infection with osteomyelitis, POD #2. Pt also with Chronic LE lymphedema. Pt calling in lunch order at time of RD assessment (hamburger & diet cola ordered). Pt states his appetite is low post op, but he reports he is still ordering & consuming meals. 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 At [facility], he reports receiving ProStat (protein modular) and daily MVI to promote wound healing. Pt agreeable to trial Conor BID during admit. Wound care consult pending. NKFA. No difficulty chewing/ swallowing. Pt did not make eye contact throughout assessment, and primarily answered with "uh huh." Pt declined diet education at this time. Recent A1c 10.0% (8/9/19). The pt's motivation toward dietary modification appears low at this time. Malnutrition Assessment: Malnutrition Status: No malnutrition Nutrition Risk Level: High Nutrient Needs: Estimated Daily Total Kcal: 8101-8177 (25-30 kcals/kg IBW) Estimated Daily Protein (g): 71-83 (1.2-1.4 g/kg IBW) Estimated Daily Total Fluid (ml/day): Per MD Nutrition Diagnosis: Problem: Increased nutrient needs, Altered nutrition-related lab values(protein) Etiology: related to Acute injury/trauma, Endocrine dysfunction ? Signs and symptoms: as evidenced by Presence of wounds, Lab values Objective Information: Nutrition-Focused Physical Findings: +BS; Abdomen: WDL; +2 Generalized edema. Pt reports 3 BM's yesterday. The pt identifies as a male. Labs reviewed: BGT - 305, 108, 156^; Recent A1c 10.0% (06/16/19) Wound Type: Wound Consult Pending, Surgical Wound, Open Wounds(Pt s/p R AKA on 06/16. Tamara=18) Current Nutrition Therapies: Oral Diet Orders: Carb Control 4 Carbs/Meal Oral Diet intake: 76-100% Oral Nutrition Supplement (ONS) Orders: None ONS intake: (No ONS ordered ) Anthropometric Measures: Ht: 5' 6" (167.6 cm) Current Body Wt: 378 lb (171.5 kg) Usual Body Wt: 380 lb (172.4 kg)(Per pt report ) [place] Body Wt: 122 lb (55.3 kg)(Adjusted IBW based on R AKA ), % [place] Body 309% Adjusted Body Wt: , body weight adjusted for AKA BMI Classification: BMI > or equal to 40.0 Obese Class III Nutrition Interventions: Modify current diet, Start ONS, Vitamin Supplement Continued Inpatient Monitoring, Education declined Nutrition Evaluation: Evaluation: Goals set Goals: Pt will meet 80-100% of estimated energy/protein needs. Pt will be >171.5 kg. Monitoring: Meal Intake, Supplement Intake, Weight, Pertinent Labs, I&O, Skin Integrity, Wound Healing, Patient/Family Education, Monitor Bowel Function, Diet Tolerance Contact Number: [phone] * Jayson Hawthorne MD - 06/18/2019 9:28 AM EDT Progress Note [facility] Patient - Will Jacinto, Age - 53 y.o. - 1965 Room Number - [id number] N - [id number] [facility] # - [id number] Date of Admission - 06/14/2019 1:21 PM ASSESSMENT 1. R DM foot infection with osteomyelitis s/p R AKA 06/16/19 2. Chronic LE lymphedema 3. DM2, uncontrolled 4. Chronic anemia 5. Bipolar disorder 6.MDRO Pseudomonas in April 2019 PLAN discontinue vancomycin and IV colistin Monitor off antibiotics SUBJECTIVE: Feels ok. Pain controlled. Denies f/c/n/v/d. Detailed ROS checked x 10 systems. All questions answered. OBJECTIVE VITALS height is 5' 6" (1.676 m) and weight is 378 lb 1.6 oz (171.5 kg) (abnormal). His temporal temperature is 99.3 F (37.4 C). His blood pressure is 108/37 (abnormal) and his pulse is 97. His respiration is 20 and oxygen saturation is 98%. Temp (24hrs), Av.9 F (37.2 C), Min:97.9 F (36.6 C), Max:99.5 F (37.5 C) General Appearance: alert and oriented x 3, NAD HEENT: wnl Neck: Supple Lungs: Clear to auscultation b/l on room air Cardiovascular: RRR Abdomen: Soft NT, ND, BS+ : no CVAT. No lewis catheter Neurologic: wnl, no focal deficits Skin: No rashes Extremities: R AKA dressing not removed - clean and intact. LLE lymphedema and chronic VSD changes,no s/o infection Lines: sites clean No joint inflammation MEDICATIONS: insulin regular human 90 Units Subcutaneous Daily before lunch insulin regular human 120 Units Subcutaneous QAM AC insulin regular human 90 Units Subcutaneous Dinner ARIPiprazole 10 mg Oral Daily aspirin 81 mg Oral Daily FLUoxetine 20 mg Oral Daily furosemide 80 mg Oral Daily lisinopril 40 mg Oral Daily potassium chloride 30 mEq Oral Daily simvastatin 20 mg Oral Nightly colistimethate (COLY-MYCIN) IVPB 1.69 mg/kg ([place]) Intravenous Q8H insulin regular 0-16 Units Subcutaneous TID AC sodium chloride flush 10 mL Intravenous 2 times per day enoxaparin 40 mg Subcutaneous Daily vancomycin 2,000 mg Intravenous Q12H dextrose LABS: CBC: Recent Labs 06/16/19 0358 06/16/19 0641 06/17/19 0409 WBC disregard* 6.7 13.3* HGB disregard* 8.8* 7.6* PLT -- 372 403 BMP: Recent Labs 06/16/19 0358 06/17/19 0409 06/17/19 1310 06/18/19 0417 NA 131* 134* -- 135 K 4.9 5.3* 5.4* 4.2 CL 98 98 -- 100 CO2 23 21* -- 26 BUN 31* 25* -- 29* CREATININE 0.87 0.94 -- 1.53* GLUCOSE 385* 399* -- 108* Hepatic: Recent Labs 06/16/19 0358 06/16/19 1526 06/17/19 0409 06/18/19 0417 ALKPHOS 167* -- 121 94 ALT 28 -- 30 44 AST 29 -- 34 48* PROT 6.5 -- 6.6 6.1* BILITOT 0.7 -- 0.7 0.5 LABALBU 3.5 3.9 3.7 3.3* Lactic Acid: No results for input(s): LACTA in the last 72 hours. MICROBIOLOGY: reviewed IMAGING: Reviewed KRANTHI [facility] 06/18/2019 9:30 AM I personally saw and evaluated the patient. I reviewed the nurse practitioner note. I agree w theirassessment and plan unless otherwise noted. Jayson [facility] 06/18/2019 2:58 PM * Asuncion Garibay DO - 06/18/2019 9:09 AM EDT Department of Internal Medicine Section of Endocrinology Attending Progress Note SUBJECTIVE: Admit date: 06/14/2019 Admitted w/: Chief Complaint Patient presents with Wound Check Patient sent over for evaluation for worsening leg infections, right lower leg is worse. he is being seen by wound care at [facility] already. Original Endocrine Consult date: 06/15/19 OutPt District Sales Coordinator: none Lab Results Component Value Date LABA1C 10.0 (H) 06/16/2019 Lab Results Component Value Date EAG 240 06/16/2019 Lab Results Component Value Date CREATININE 1.53 (H) 06/18/2019 Pre-Admission Home DM regimen: U500 pen 170/150/150 Since last inpatient Endocrine encounter patient reports: Patient reports that pain is improved compared to yesterday. He has no other questions or complaints Current Insulin regimen: U 500 pen 120/80/90 Regular U 100 sliding scale before meals. Insulin gtt DC'd on: n/a Inpt glucocorticoid use: [] YES [x] NO Glucose and Insulin Review: As per EMR Hypoglycemia Event(s) in the past 24 hrs: [] Yes [x] No Other notes in EMR reviewed: [x]YES, [] NO Tolerating PO intake: [x] Yes [] No PO intake: More than at home []; Same as at home []; Less than at home [x] carb controlled Current Inpatient Medications Current Facility-Administered Medications: morphine sulfate (PF) injection 2 mg, 2 mg, Intravenous,Q4H PRN insulin regular human (humuLIN R U-500 KWIKPEN) 500 UNIT/ML concentrated injection pen 120 Units, 120 Units, Subcutaneous, QAM AC phenol 1.4 % mouth spray 1 spray, 1 spray, Mouth/Throat, Q2H PRN oxyCODONE-acetaminophen (PERCOCET) 5-325 MG per tablet 1 tablet, 1 tablet, Oral, Q4H PRN OR oxyCODONE-acetaminophen (PERCOCET) 5-325 MG per tablet 2 tablet, 2 tablet, Oral, Q4H PRN insulin regular human (humuLIN R U-500 KWIKPEN) 500 UNIT/ML concentrated injection pen 90 Units, 90Units, Subcutaneous, Dinner insulin regular human (humuLIN R U-500 KWIKPEN) 500 UNIT/ML concentrated injection pen 80 Units, 80Units, Subcutaneous, Daily before lunch ARIPiprazole (ABILIFY) tablet 10 mg, 10 mg, Oral, Daily aspirin EC tablet 81 mg, 81 mg, Oral, Daily FLUoxetine (PROZAC) capsule 20 mg, 20 mg, Oral, Daily furosemide (LASIX) tablet 80 mg, 80 mg, Oral, Daily lisinopril (PRINIVIL;ZESTRIL) tablet 40 mg, 40 mg, Oral, Daily potassium chloride (KLOR-CON M) extended release tablet 30 mEq, 30 mEq, Oral, Daily simvastatin (ZOCOR) tablet 20 mg, 20 mg, Oral, Nightly colistimethate (COLYMYCIN) 100 mg in dextrose 5 % 100 mL IVPB, 1.69 mg/kg ([place]), Intravenous, Q8H insulin regular (HUMULIN R;NOVOLIN R) injection 0-16 Units, 0-16 Units, Subcutaneous, TID AC sodium chloride flush 0.9 % injection 10 mL, 10 mL, Intravenous, 2 times per day sodium chloride flush 0.9 % injection 10 mL, 10 mL, Intravenous, PRN enoxaparin (LOVENOX) injection 40 mg, 40 mg, Subcutaneous, Daily glucose (GLUTOSE) 40 % oral gel 15 g, 15 g, Oral, PRN dextrose 50 % IV solution, 12.5 g, Intravenous, PRN glucagon (rDNA) injection 1 mg, 1 mg, Intramuscular, PRN dextrose 5 % solution, 100 mL/hr, Intravenous, PRN vancomycin (VANCOCIN) 2,000 mg in dextrose 5 % 500 mL IVPB, 2,000 mg, Intravenous, Q12H Subjective: Review of Systems All other systems reviewed and are negative. Inpt ROS: [] MALCOLM [] diaphoresis [] tremor [] CP [] chest pressure [] palpitation [] SOB [] Abd pain [] Nausea [] Emesis [x] Other: right leg pain (Legend: [x] if present; [] if not present) Objective: Physical VITALS: BP (!) 108/37 Pulse 97 Temp 99.3 F (37.4 C) (Temporal) Resp 20 Ht 5' 6" (1.676 m) Wt (!) 378 lb 1.6 oz (171.5 kg) SpO2 98% BMI 61.03 kg/m Physical Exam Constitutional: He is oriented to person, place, and time. He appears well- developed and well-nourished. No distress. Obese adult lying supine in bed answering questions appropriately. HENT: Head: Normocephalic and atraumatic. Right Ear: External ear normal. Left Ear: External ear normal. Nose: Nose normal. Eyes: Conjunctivae are normal. Right eye exhibits no discharge. Left eye exhibits no discharge. No scleral icterus. Pulmonary/Chest: Effort normal. No respiratory distress. Neurological: He is alert and oriented to person, place, and time. Skin: Skin is warm. He is not diaphoretic. Psychiatric: He has a normal mood and affect. Vitals reviewed. DATA Impression: I reviewed: [x] laboratory results [] radiographic results At the time oftoday's encounter. Pt was advised of the results. ASSESSMENT: Type 2 diabetes uncontrolled with complication. Nonhealing foot ulceration s/p right AKA. Hyperglycemia Insulin resistance Long-term insulin use. Morbid obesity. BMI 61.8 Transgender/Female identifying as a male. PLAN: The inpt antihyperglycemic regimen will be as follows: U500 135/90/90 Continue regular U100 SS qAC Inpt GMF glucose goal 150. Inpt ICU glucose goal 150. Outpt goal A1C = 7%. Insulin is necessary for ongoing mgmt. FSBS to occur qAC/HS/PRN for s/s of hyper-/hypoglycemia. FSBS data will be used to determine the next steps in antihyperglycemic medication titration duringhospital stay. If hypoglycemia were to occur itshould be treated per hospital protocol. Diet recommendation: Carbohydrate controlled 60 g limit no juice trays once able If the pt is to bedischarged from the hospital I recommend: Patient will be discharged on U 500 insulin. Doses to be determined. Please page the on-call District Sales Coordinator if there arequestions regarding Endocrine DC recommendations. If there are any questions or concerns related to the info in this progress note please page the oncall consultant rn directly. On-Call information can be found in the [facility] Directory. We appreciate the opportunity to participate in this pt's ongoing medical care. I spent 25 minutes with the pt which involved more than 51% of the time in coordination of care, medicalevaluation, review of records, and/or counseling of the pt regarding her condition/disease state/prognosis on the date of this note. Portions of the information within this encounter were entered using an electronic dictation system. Best attempts were made to edit/proofread the information prior to note completion. Despite the review of information, some errors may remain. If there are questions related to the information contained within the note please contact the signing physician directly. * Theo Clemons MD - 06/18/2019 6:13 AM EDT [facility] H[address] TELEMETRY [address] [facility] [address] Dept: [phone] Loc: [phone] Orthopedic Progress Note Name: Will Jacinto Date:06/18/2019 Attending:MD Vonda Dumont. Dressing stayed on overnight. Objective Vitals: Vitals: 06/17/19 0028 06/17/19 0745 06/17/19 1450 06/17/192014 BP: 109/84 (!) 112/56 108/63 (!) 106/44 Pulse: 90 102 93 107 Resp: 18 18 22 16 Temp: 97.2 F (36.2 C) 98.2 F (36.8 C) 97.9 F (36.6 C) 99.5 F (37.5 C) TempSrc: Temporal Temporal Temporal Temporal SpO2: 92% 98% 97% 96% Weight: Height: Physical Exam: General: NAD RLE Dressing c/d/i. I SILT on stump BCR at skin LABS: Recent Labs 06/16/19 0358 06/16/19 0641 06/17/19 0409 WBC disregard* 6.7 13.3* HGB disregard* 8.8* 7.6* HCT disregard* 28.2* 24.8* PLT -- 372 403 Recent Labs 06/16/19 0358 06/17/19 0409 06/17/19 1310 06/18/19 0417 NA 131* 134* -- 135 K 4.9 5.3* 5.4* 4.2 CL 98 98 -- 100 CO2 23 21* -- 26 BUN 31* 25* -- 29* CREATININE 0.87 0.94 -- 1.53* CALCIUM 8.6 8.5 -- 8.7 No results for input(s): INR in the last 72 hours. No results for input(s): SEDRATE, CRP in the last 72 hours. No results for input(s): HCG in the last 72 hours. Assessment Will is a 53 y.o.adult RIGHT foot ulceration and Right foot Osteomyelitis s/p R Above knee amputation 06/16/19 Plan -Additional Surgical Intervention: No further plans for operative intervention at this time Weight Bearing Instructions: Will will be nonweight bearing on the Right lower extremity. DVT Prophylaxis: Can start/restart chemoprophylaxis from my standpoint Antibiotics: Antibiotic managment per Infectious Disease Consults: Rehab Elevation: Elevation of the operative extremity is not needed but can be performed if patient is uncomfortable Dressings: Dry dressing change as needed for drainage Follow-up: follow-up as an outpatient in 2 weeks please call [phone] to make an appointment Will sign off-=call with questions * Jayson Hawthorne MD - 06/17/2019 2:43 PM EDT Progress Note [facility] Patient - Will Jacinto, Age - 53 y.o. - 1965 Room Number - [id number] N - [id number] Date of Admission - 06/14/2019 1:21 PM ASSESSMENT 1. R DM foot infection with osteomyelitis 2. Chronic LE lymphedema 3. DM2, uncontrolled 4. Chronic anemia 5. Bipolar disorder 6.MDRO Pseudomonas in April 2019 PLAN Continue vancomycin Continue IV colistin (given h/o MDRO pseudomonas) F/u wound cultures Contact precautions pending cx results Will likely need 24hrs of antibiotics post surgery. Will stop abx in am. SUBJECTIVE: Complains of pain. No fevers. Had R AKA. Incision is clean and wo s/o infection. Denies f/c/n/v/d. Blood cultures negative. Wound cultures pending. OBJECTIVE VITALS height is 5' 6" (1.676 m) and weight is 378 lb 1.6 oz (171.5 kg) (abnormal). His temporal temperature is 98.2 F (36.8 C). His blood pressure is 112/56 (abnormal) and his pulse is 102. His respirationis 18 and oxygen saturation is 98%. Temp (24hrs), Av.6 F (36.4 C), Min:96.8 F (36 C), Max:98.2 F (36.8 C) General Appearance: alert and oriented x 3, NAD HEENT: wnl Neck: Supple Lungs: Clear to auscultation b/l on room air Cardiovascular: RRR Abdomen: Soft NT, ND, BS+ : no CVAT. No lewis catheter Neurologic: wnl, no focal deficits Skin: No rashes Extremities: bilateral lower extremity lymphedema with thick scaly skin and chronic VSD changes without warmth. R foot dressing not removed. Lines: sites clean No joint inflammation MEDICATIONS: insulin regular human 90 Units Subcutaneous Dinner insulin regular human 100 Units Subcutaneous QAM AC insulin regular human 80 Units Subcutaneous Daily before lunch ARIPiprazole 10 mg Oral Daily aspirin 81 mg Oral Daily FLUoxetine 20 mg Oral Daily furosemide 80 mg Oral Daily lisinopril 40 mg Oral Daily potassium chloride 30 mEq Oral Daily simvastatin 20 mg Oral Nightly colistimethate (COLY-MYCIN) IVPB 1.69 mg/kg ([place]) Intravenous Q8H insulin regular 0-16 Units Subcutaneous TID AC sodium chloride flush 10 mL Intravenous 2 times per day enoxaparin 40 mg Subcutaneous Daily vancomycin 2,000 mg Intravenous Q12H dextrose LABS: CBC: Recent Labs 06/15/1942206/16/19 0358 06/16/19 0641 06/17/19 0409 WBC 6.6 disregard* 6.7 13.3* HGB 8.8* disregard* 8.8* 7.6* PLT 353 -- 372 403 BMP: Recent Labs 06/15/1942206/16/19 0358 06/17/19 0409 06/17/19 1310 NA 135 131* 134* -- K 4.7 4.9 5.3* 5.4* CL 100 98 98 -- CO2 25 23 21* -- BUN 31* 31* 25* -- CREATININE 0.86 0.87 0.94 -- GLUCOSE 281* 385* 399* -- Hepatic: Recent Labs 06/15/19 0423 06/16/19 0358 06/16/19 1526 06/17/19 0409 ALKPHOS 168* 167* -- 121 ALT 27 28 -- 30 AST 30 29 -- 34 PROT 6.4 6.5 -- 6.6 BILITOT 0.5 0.7 -- 0.7 LABALBU 3.4* 3.5 3.9 3.7 Lactic Acid: Recent Labs 06/14/19 1456 LACTA 3.7* MICROBIOLOGY: 06/14 wound: P 06/14 BC: ngtd IMAGING: XR R foot: 1. Large soft tissue ulceration along the lateral midfoot adjacent to a previously resected fifth digit. The ulceration extends down to residual bone fragments from the fifth digit raising concern for osteomyelitis given no significant soft tissue coverage, however there is no erosion or definite osteolysis to confirm osteomyelitis. Consider further evaluation with MRI or CT. 2. Advanced osteoarthropathy within the midfoot with some midfoot Jayson Hawthorne MD [facility] 06/17/2019 2:44 PM * Crystal Mullins MD - 06/17/2019 1:15 PM EDT Hospitalist Progress Note 06/17/2019 1:16 PM [phone]: Please page me for patient care issues. [phone]: Please page [facility] night Hospitalist for any issues. Subjective: Admit Date: 06/14/2019 PCP: Jared Guzman MD Room#: [id number] Interval History: Patient seen and examined No new event overnight patient complaining pain at the amputation site. No chest pain shortness of breath. DIET CARB CONTROL; Carb Control: 4 carb choices (60 gms)/meal Patient Vitals for the past 96 hrs (Last 3 readings): Weight 06/16/19 0450 (!) 378 lb 1.6 oz (171.5 kg) 06/14/19 1343 (!) 382 lb (173.3 kg) Medications: dextrose insulin regular human 90 Units Subcutaneous Dinner insulin regular human 100 Units Subcutaneous QAM AC insulin regular human 80 Units Subcutaneous Daily before lunch ARIPiprazole 10 mg Oral Daily aspirin 81 mg Oral Daily FLUoxetine 20 mg Oral Daily furosemide 80 mg Oral Daily lisinopril 40 mg Oral Daily potassium chloride 30 mEq Oral Daily simvastatin 20 mg Oral Nightly colistimethate (COLY-MYCIN) IVPB 1.69 mg/kg ([place]) Intravenous Q8H insulin regular 0-16 Units Subcutaneous TID AC sodium chloride flush 10 mL Intravenous 2 times per day enoxaparin 40 mg Subcutaneous Daily vancomycin 2,000 mg Intravenous Q12H LABS: CBC: Recent Labs 06/15/19 0423 06/16/19 0358 06/16/19 0641 06/17/19 0409 WBC 6.6 disregard* 6.7 13.3* RBC 3.64* disregard* 3.71* 3.26* HGB 8.8* disregard* 8.8* 7.6* HCT 27.2* disregard* 28.2* 24.8* MCV 74.8* disregard* 76.0* 76.1* RDW 22.9* disregard* 22.9* 22.4* PLT 353 -- 372 403 BMP: Recent Labs 06/15/19 0423 06/16/19 0358 06/17/19 0409 NA 135 131* 134* K 4.7 4.9 5.3* CL 100 98 98 CO2 25 23 21* BUN 31* 31* 25* CREATININE 0.86 0.87 0.94 GLUCOSE 281* 385* 399* CALCIUM 8.7 8.6 8.5 ANIONGAP 10 11 14 LIVER PROFILE: Recent Labs 06/15/19 0423 06/16/19 0358 06/16/19 1526 06/17/19 0409 AST 30 29 -- 34 ALT 27 28 -- 30 BILITOT 0.5 0.7 -- 0.7 ALKPHOS 168* 167* -- 121 LABALBU 3.4* 3.5 3.9 3.7 PROT 6.4 6.5 -- 6.6 PT/INR: Recent Labs 06/14/19 1940 PROTIME 10.9 INR 1.0 CARDIAC ENZYMES: No results for input(s): TROPONINI in the last 72 hours. Procalcitonin: Lab Results Component Value Date PROCAL 0.11 06/17/2019 Objective: Vitals: BP (!) 112/56 Pulse 102 Temp 98.2 F (36.8 C) (Temporal) Resp 18 Ht 5' 6" (1.676 m) Wt (!) 378 lb 1.6 oz (171.5 kg) SpO2 98% BMI 61.03 kg/m Pulse Ox: SpO2 Av.1 % Min: 92 % Max: 98 % Supplemental O2: O2 Flow Rate (L/min): 4 L/min General appearance: No apparent distress, HEENT: Eyes: No scleral icterus No pallor Oral: Tongue is semi-moist Cardiovascular: S1S2 heard, RRR Respiratory: Decrease breath sound both bases Abdomen: Soft, non-tender, non-distended with normal bowel sounds. Musculoskeletal: No obvious deformities seen Skin: No visible rashes or lesions. Neurology- no focal neurology,Awake alert Extremity- right lower extremity dressing is seen Assessment Right diabetic foot diabetes type 2 uncontrolled obesity hyperkalemia Plan On IV antibiotic infectious disease status post above-knee amputation t Orthopedic surgery following endocrine following, managing blood sugars repeat potassium follow labs continue morphine for pain On DVT/ GI prophylaxis Labs ordered for AM Patient was informed about all work up and treatment plan Discussed with nursing staff Advance Directive: Full Code Discharge planning: CRYSTAL MULLINS MD Division of Hospitalist Medicine Inpatient Medical Services PAGER: [phone] * Sera Kraus, PT - 06/17/2019 10:32 AM EDT Physical Therapy Facility/Department: [facility] Initial Assessment NAME: Will Jacinto : 1965 Date of Service: 06/17/2019 Discharge Recommendations: Subacute/Snf Facility Assessment Body structures, Functions, Activity limitations: Decreased functional mobility ;Decreased ADL status;Decreased ROM;Decreased sensation;Decreased strength;Decreased balance;Decreased safe awareness;Increased Pain;Decreased endurance Assessment: pt w/ above deficits. pt s/p R AKA. Mostly limited by R residual limb pain. pt max assist for bed mobility; unsafe to stand at this time. If standing remains an issue, may need to addressslideboard transfers. Rec SNF. Prognosis: Fair Decision Making: Medium Complexity PT Education: Goals;PT Role;Plan of Care;General Safety;Weight-bearing Education;Transfer Training Patient Education: AKA protocol REQUIRES PT FOLLOW UP: Yes Activity Tolerance Activity Tolerance: Patient limited by pain;Patient limited by endurance Patient Diagnosis(es): The primary encounter diagnosis was Diabetic foot infection (HCC). Diagnosesof Lactic acidosis and Morbid obesity (HCC) were also pertinent to this visit. has a past medical history of Abnormal uterine bleeding (AUB), Bipolar 1 disorder (HCC), Depression, Depression, Diabetes mellitus (HCC), Hypertension, Morbidly obese (HCC), and Osteomyelitis (HCC). 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 Restrictions Restrictions/Precautions Restrictions/Precautions: Weight Bearing, Fall Risk, Up as Tolerated, Contact Precautions(+hx CRE (contact precautions)) Lower Extremity Weight Bearing Restrictions Right Lower Extremity Weight Bearing: Non Weight Bearing Position Activity Restriction Other position/activity restrictions: 4 L/min O2 Subjective General Chart Reviewed: Yes Patient assessed for rehabilitation services?: Yes Additional Pertinent Hx: DM Family / Caregiver Present: No Diagnosis: diabetic foot infection s/p R AKA POD#1 Follows Commands: Within Functional Limits Subjective Subjective: pt in bed, agrees to PT. Pleasant and cooperative. Goes by "Maria Luisa." Noted wet gown and bed linens from leaking IV, RN aware. Pain Screening Patient Currently in Pain: Yes(did not quantify pain in R residual limb; denies phantom pain) Vital Signs Patient Currently in Pain: Yes(did not quantify pain in R residual limb; denies phantom pain) Pre Treatment Pain Screening Intervention List: Patient able to continue with treatment Comments / Details: pt reports he was recently given pain meds Orientation Orientation Overall Orientation Status: Within Functional Limits Social/Functional History Social/Functional History Lives With: Other (comment) Type of Home: Facility([facility]) Home Layout: One level Home Access: Level entry Bathroom Shower/Tub: Walk-in shower, Shower chair with back Bathroom Toilet: Handicap height Bathroom Equipment: Grab bars in shower, Shower chair Bathroom Accessibility: Wheelchair accessible Home Equipment: 4 wheeled walker, Electric scooter, Wheelchair-manual Receives Help From: brand attendant ADL Assistance: Needs assistance Homemaking Assistance: (provided by facility) Homemaking Responsibilities: No Ambulation Assistance: (non-ambulatory x3-4 years, uses wc) Transfer Assistance: Independent Active Instructional Media Services Technician: No Patient's Instructional Media Services Technician Info: facility, [facility] transport Mode of Transportation: Bus, Van Education: NA Occupation: On disability Type of occupation: NA Leisure & Hobbies: NA IADL Comments: needs assistance Additional Comments: pt reports he has not walked in 3-4 years, primarily uses wc. Indep w/ transfers. Assist w/ ADLs. Cognition Cognition Overall Cognitive Status: WFL Objective Observation/Palpation Observation: R AKA boo, bandage removed AROM RLE (degrees) RLE General AROM: NT PROM LLE (degrees) LLE PROM: WFL AROM LLE (degrees) LLE General AROM: ankle WFL, knee exten -30 deg, unable to flex hip while seated EOB Strength RLE Comment: NT Strength LLE Comment: ankle 4/5, knee 3/5, unable to test hip Sensation Overall Sensation Status: Impaired(pt reports neuropathy, diminished light touch discrimination L foot) Bed mobility Rolling to Left: Maximum assistance Supine to Sit: Maximum assistance(HOB 30 deg, +bed rail) Sit to Supine: Maximum assistance Scooting: Dependent/Total;2 Person assistance(x2 reps) Comment: cues for hand positioning, scooting R hip to EOB Transfers Sit to Stand: Unable to assess(unsafe to attempt) Ambulation Ambulation?: No(non-ambulatory) Balance Posture: Fair Sitting - Static: Fair Sitting - Dynamic: Fair;- Comments: pt sat EOB x8 minutes w/ close supv to min assist for dynamic tasks. pt tends to lean onto L hip. Multi-directional LOB w/o UE support. Exercises Gluteal Sets: x10 Knee Long Arc Quad: x10 LLE Ankle Pumps: x10 LLE Plan Plan Times per week: 5-7x Plan weeks: 2 Current Treatment Recommendations: Strengthening, ROM, Balance Training, Functional Mobility Training, Transfer Training, Endurance Training, Equipment Evaluation, Education, & procurement, Positioning, Safety Education & Training Plan Comment: AVINASH protocolWILFRID NWOlvin Safety Devices Type of devices: All fall risk precautions in place, Call light within reach, Patient at risk for falls, Left in bed, Nurse notified AM-PAC Score AM-PAC Inpatient Mobility Raw Score : 6 (06/17/19 1032) AM-PAC Inpatient T-Scale Score : 23.55 (06/17/19 103) Mobility Inpatient CMS 0-100% Score: 100 (06/17/19 103) Mobility Inpatient CMS G-Code Modifier : CN (06/17/191031) Goals Short term goals Time Frame for Short term goals: 2 wks Short term goal 1: bed mobility min assist Short term goal 2: sit-stand transfer mod assist Short term goal 3: stand pivot transfer mod assist Short term goal 4: slideboard transfer mod assist Short term goal 5: wc mobility x150' mod indep Patient Goals Patient goals : wants to be able to walk again Therapy Time Individual Concurrent Group Co-treatment Time In 953 Time Out 1019 Minutes 25 Timed Code Treatment Minutes: 10 Minutes(TP) Patient s Physical Therapy Plan of Care supervision is transferred to [facility] Rehab Department Physical Therapist. Goals and/or treatment plan was established in collaboration with patient/family/other representatives. Sera Kraus PT * Asuncion Garibay, - 06/17/2019 9:13 AM EDT Department of Internal Medicine Section of Endocrinology Attending Progress Note SUBJECTIVE: Admit date: 06/14/2019 Admitted w/: Chief Complaint Patient presents with Wound Check Patient sent over for evaluation for worsening leg infections, right lower leg is worse. he is being seen by wound care at [facility] already. Original Endocrine Consult date: 06/15/19 OutPt District Sales Coordinator: none Lab Results Component Value Date LABA1C 10.0 (H) 06/16/2019 Lab Results Component Value Date EAG 240 06/16/2019 Lab Results Component Value Date CREATININE 0.94 06/17/2019 Pre-Admission Home DM regimen: U500 pen 170/150/150 Since last inpatient Endocrine encounter patient reports: Patient reports pain in right leg. Otherwise denies complaints Current Insulin regimen: U 500 pen 100/80/90 Regular U 100 sliding scale before meals. Insulin gtt DC'd on: n/a Inpt glucocorticoid use: [] YES [x] NO Glucose and Insulin Review: As per EMR Hypoglycemia Event(s) in the past 24 hrs: [] Yes [x] No Other notes in EMR reviewed: [x]YES, [] NO Tolerating PO intake: [x] Yes [] No PO intake: More than at home []; Same as at home []; Less than at home [x] carb controlled Current Inpatient Medications Current Facility-Administered Medications: morphine sulfate (PF) injection 2 mg, 2 mg, Intravenous,Q4H PRN insulin regular human (humuLIN R U-500 KWIKPEN) 500 UNIT/ML concentrated injection pen 90 Units, 90Units, Subcutaneous, Dinner insulin regular human (humuLIN R U-500 KWIKPEN) 500 UNIT/ML concentrated injection pen 100 Units, 100 Units, Subcutaneous, QAM AC insulin regular human (humuLIN R U-500 KWIKPEN) 500 UNIT/ML concentrated injection pen 80 Units, 80Units, Subcutaneous, Daily before lunch xeroform petrolat gauze 1"X8" external pads, , , ARIPiprazole (ABILIFY) tablet 10 mg, 10 mg, Oral, Daily aspirin EC tablet 81 mg, 81 mg, Oral, Daily FLUoxetine (PROZAC) capsule 20 mg, 20 mg, Oral, Daily furosemide (LASIX) tablet 80 mg, 80 mg, Oral, Daily lisinopril (PRINIVIL;ZESTRIL) tablet 40 mg, 40 mg, Oral, Daily potassium chloride (KLOR-CON M) extended release tablet 30 mEq, 30 mEq, Oral, Daily simvastatin (ZOCOR) tablet 20 mg, 20 mg, Oral, Nightly colistimethate (COLYMYCIN) 100 mg in dextrose 5 % 100 mL IVPB, 1.69 mg/kg ([place]), Intravenous, Q8H insulin regular (HUMULIN R;NOVOLIN R) injection 0-16 Units, 0-16 Units, Subcutaneous, TID AC sodium chloride flush 0.9 % injection 10 mL, 10 mL, Intravenous, 2 times per day sodium chloride flush 0.9 % injection 10 mL, 10 mL, Intravenous, PRN enoxaparin (LOVENOX) injection 40 mg, 40 mg, Subcutaneous, Daily glucose (GLUTOSE) 40 % oral gel 15 g, 15 g, Oral, PRN dextrose 50 % IV solution, 12.5 g, Intravenous, PRN glucagon (rDNA) injection 1 mg, 1 mg, Intramuscular, PRN dextrose 5 % solution, 100 mL/hr, Intravenous, PRN vancomycin (VANCOCIN) 2,000 mg in dextrose 5 % 500 mL IVPB, 2,000 mg, Intravenous, Q12H Subjective: Review of Systems All other systems reviewed and are negative. An entire ROS was performed at the time of this encounter. Unless noted above in the HPI, the ROS is negative. Objective: Physical VITALS: BP (!) 112/56 Pulse 102 Temp 98.2 F (36.8 C) (Temporal) Resp 18 Ht 5' 6" (1.676 m) Wt (!) 378 lb 1.6 oz (171.5 kg) SpO2 98% BMI 61.03 kg/m Physical Exam Constitutional: He is oriented to person, place, and time. He appears well- developed and well-nourished. No distress. Obese adult lying supine in bed answering questions appropriately. HENT: Head: Normocephalic and atraumatic. Right Ear: External ear normal. Left Ear: External ear normal. Nose: Nose normal. Eyes: Conjunctivae are normal. Right eye exhibits no discharge. Left eye exhibits no discharge. No scleral icterus. Pulmonary/Chest: Effort normal. No respiratory distress. Neurological: He is alert and oriented to person, place, and time. Skin: Skin is warm. He is not diaphoretic. Psychiatric: He has a normal mood and affect. Vitals reviewed. DATA Impression: I reviewed: [x] laboratory results [] radiographic results At the time oftoday's encounter. Pt was advised of the results. ASSESSMENT: Type 2 diabetes uncontrolled with complication. Nonhealing foot ulceration s/p right AKA. Hyperglycemia Insulin resistance Long-term insulin use. Morbid obesity. BMI 61.8 Transgender/Female identifying as a male. PLAN: The inpt antihyperglycemic regimen will be as follows: Resume U500 today as ordered. Will adjust doses as new glucose data becomes available through today. Continue regular SS qAC. Patient was counseled about the plan. Patient care discussed with nursing staff. Endocrine should be contacted with all glucose related questions. Inpt GMF glucose goal 150. Inpt ICU glucose goal 150. Outpt goal A1C = 7%. Insulin is necessary for ongoing mgmt. FSBS to occur qAC/HS/PRN for s/s of hyper-/hypoglycemia. FSBS data will be used to determine the next steps in antihyperglycemic medication titration duringhospital stay. If hypoglycemia were to occur itshould be treated per hospital protocol. Diet recommendation: Carbohydrate controlled 60 g limit no juice trays once able If the pt is to bedischarged from the hospital I recommend: Patient will be discharged on U 500 insulin. Doses to be determined. Please page the on-call District Sales Coordinator if there arequestions regarding Endocrine DC recommendations. If there are any questions or concerns related to the info in this progress note please page the oncall consultant rn directly. On-Call information can be found in the [facility] Directory. We appreciate the opportunity to participate in this pt's ongoing medical care. I spent 35 minutes with the pt which involved more than 51% of the time in coordination of care, medicalevaluation, review of records, and/or counseling of the pt regarding her condition/disease state/prognosis on the date of this note. Portions of the information within this encounter were entered using an electronic dictation system. Best attempts were made to edit/proofread the information prior to note completion. Despite the review of information, some errors may remain. If there are questions related to the information contained within the note please contact the signing physician directly. * Theo Clemons MD - 06/17/2019 5:29 AM EDT [place] [id number] [facility] [address] [place] [address] Dept: [phone] Loc: [phone] Orthopedic Progress Note Name: Will Jacinto Date:06/17/2019 Attending:Jayesh Jordan MD Subjective JB. Dressing fell off during night. Unable to get back on. Objective Vitals: Vitals: 06/16/19 2330 06/16/19 2345 06/17/19 0000 06/17/19 0028 BP: (!) 123/90 (!) 90/57 (!) 118/54 109/84 Pulse: 81 82 81 90 Resp: 18 20 18 18 Temp: 98.1 F (36.7 C) 97.2 F (36.2 C) TempSrc: Temporal Temporal SpO2: 93% 94% 94% 92% Weight: Height: Physical Exam: General: NAD RLE Dressing off. Incisions c/d/i. SILT on lateral aspect of incision, diminished on the medial aspect of incision Dressing replaced. LABS: Recent Labs 06/15/19 0423 06/16/19 0358 06/16/19 0641 06/17/19 0409 WBC 6.6 disregard* 6.7 13.3* HGB 8.8* disregard* 8.8* 7.6* HCT 27.2* disregard* 28.2* 24.8* PLT 353 -- 372 403 Recent Labs 06/15/19 0423 06/16/19 0358 06/17/19 0409 NA 135 131* 134* K 4.7 4.9 5.3* CL 100 98 98 CO2 25 23 21* BUN 31* 31* 25* CREATININE 0.86 0.87 0.94 CALCIUM 8.7 8.6 8.5 Recent Labs 06/14/19 1940 INR 1.0 Recent Labs 06/14/19 1456 SEDRATE 65* CRP 30.7* No results for input(s): HCG in the last 72 hours. Assessment Will is a 53 y.o.adult RIGHT foot ulceration and Right foot Osteomyelitis s/p R Above knee amputation 06/16/19 Plan -Additional Surgical Intervention: No further plans for operative intervention at this time Weight Bearing Instructions: Will will be nonweight bearing on the Right lower extremity. DVT Prophylaxis: Can start/restart chemoprophylaxis from my standpoint Antibiotics: Antibiotic managment per Infectious Disease Consults: Rehab Elevation: Elevation of the operative extremity is not needed but can be performed if patient is uncomfortable Dressings: Dry dressing change as needed for drainage Follow-up: follow-up as an outpatient in 2 weeks please call [phone] to make an appointment * Crystal Mullins MD - 06/16/2019 4:12 PM EDT Hospitalist Progress Note 06/16/2019 4:12 PM [phone]: Please page me for patient care issues. [phone]: Please page [facility] night Hospitalist for any issues. Subjective: Admit Date: 06/14/2019 PCP: Jared Guzman MD Room#: [id number] Interval History: Patient seen and examined No new event overnight patient complaining of soreness in the right foot. No chest pain shortness of breath. Scheduled for amputation today. Diet NPO Effective Now Patient Vitals for the past 96 hrs (Last 3 readings): Weight 06/16/19 0450 (!) 378 lb 1.6 oz (171.5 kg) 06/14/19 1343 (!) 382 lb (173.3 kg) Medications: dextrose insulin regular human 90 Units Subcutaneous Dinner [START ON 06/17/2019] insulin regular human 100 Units Subcutaneous QAM AC [START ON 06/17/2019] insulin regular human 80 Units Subcutaneous Daily before lunch ARIPiprazole 10 mg Oral Daily aspirin 81 mg Oral Daily FLUoxetine 20 mg Oral Daily furosemide 80 mg Oral Daily lisinopril 40 mg Oral Daily potassium chloride 30 mEq Oral Daily simvastatin 20 mg Oral Nightly colistimethate (COLY-MYCIN) IVPB 1.69 mg/kg ([place]) Intravenous Q8H insulin regular 0-16 Units Subcutaneous TID AC sodium chloride flush 10 mL Intravenous 2 times per day enoxaparin 40 mg Subcutaneous Daily vancomycin 2,000 mg Intravenous Q12H LABS: CBC: Recent Labs 06/14/19145506/15/1942206/16/1935706/16/19 0641 WBC 7.0 6.6 disregard* 6.7 RBC 4.03 3.64* disregard* 3.71* HGB 9.6* 8.8* disregard* 8.8* HCT 30.2* 27.2* disregard* 28.2* MCV 75.1* 74.8* disregard* 76.0* RDW 22.6* 22.9* disregard* 22.9* PLT 396 353 -- 372 BMP: Recent Labs 06/14/19145506/15/1942206/16/19357 NA 135 135 131* K 4.8 4.7 4.9 CL 96* 100 98 CO2 27 25 23 BUN 30* 31* 31* CREATININE 0.89 0.86 0.87 GLUCOSE 325* 281* 385* CALCIUM 9.6 8.7 8.6 ANIONGAP 13 10 11 LIVER PROFILE: Recent Labs 06/15/1942206/16/198 06/16/19 1526 AST 30 29 -- ALT 27 28 -- BILITOT 0.5 0.7 -- ALKPHOS 168* 167* -- LABALBU 3.4* 3.5 3.9 PROT 6.4 6.5 -- PT/INR: Recent Labs 06/14/19 1940 PROTIME 10.9 INR 1.0 CARDIAC ENZYMES: No results for input(s): TROPONINI in the last 72 hours. Procalcitonin: Lab Results Component Value Date PROCAL <0.10 06/14/2019 Objective: Vitals: BP 104/62 Pulse 88 Temp 97.4 F (36.3 C) (Temporal) Resp 20 Ht 5' 6" (1.676 m) Wt (!) 378 lb 1.6 oz (171.5 kg) SpO2 96% BMI 61.03 kg/m Pulse Ox: SpO2 Av % Min: 92 % Max: 100 % Supplemental O2: General appearance: No apparent distress, HEENT: Eyes: No scleral icterus No pallor Oral: Tongue is semi-moist Cardiovascular: S1S2 heard, RRR Respiratory: Decrease breath sound both bases Abdomen: Soft, non-tender, non-distended with normal bowel sounds. Musculoskeletal: No obvious deformities seen Skin: No visible rashes or lesions. Neurology- no focal neurology,Awake alert Extremity- right lower extremity dressing is seen Assessment Right diabetic foot diabetes type 2 uncontrolled obesity Plan On IV antibiotic spray infectious disease for above-knee amputation today Orthopedic surgery endocrine following, managing blood sugars follow labs On DVT/ GI prophylaxis Labs ordered for AM Patient was informed about all work up and treatment plan Discussed with nursing staff Advance Directive: Full Code Discharge planning: CRYSTAL MULLINS MD Division of Hospitalist Medicine Inpatient Medical Services PAGER: [phone] * Asuncion Garibay DO - 06/16/2019 3:23 PM EDT Department of Internal Medicine Section of Endocrinology Attending Progress Note SUBJECTIVE: Admit date: 06/14/2019 Admitted w/: Chief Complaint Patient presents with Wound Check Patient sent over for evaluation for worsening leg infections, right lower leg is worse. he is being seen by wound care at [facility] already. Original Endocrine Consult date: 06/15/19 OutPt District Sales Coordinator: none Lab Results Component Value Date LABA1C 10.6 (H) 05/16/2019 Lab Results Component Value Date EAG 258 05/16/2019 Lab Results Component Value Date CREATININE 0.87 06/16/2019 Pre-Admission Home DM regimen: U500 pen 170/150/150 Since last inpatient Endocrine encounter patient reports: Denies any complaints. Awaiting OR. Current Insulin regimen: Varying doses of NPH, regular and U500 depending on PO nut status. Insulin gtt DC'd on: n/a Inpt glucocorticoid use: [] YES [x] NO Glucose and Insulin Review: As per EMR Hypoglycemia Event(s) in the past 24 hrs: [] Yes [x] No Other notes in EMR reviewed: [x]YES, [] NO Tolerating PO intake: [x] Yes [] No PO intake: More than at home []; Same as at home []; Less than at home [x] NPO Current Inpatient Medications Current Facility-Administered Medications: insulin regular human (humuLIN R U- 500 KWIKPEN) 500 UNIT/ML concentrated injection pen 90 Units, 90 Units, Subcutaneous, Dinner [START ON 06/17/2019] insulin regular human (humuLIN R U-500 KWIKPEN) 500 UNIT/ML concentrated injection pen 100 Units, 100 Units, Subcutaneous, QAM AC [START ON 06/17/2019] insulin regular human (humuLIN R U-500 KWIKPEN) 500 UNIT/ML concentrated injection pen 80 Units, 80 Units, Subcutaneous, Daily before lunch ARIPiprazole (ABILIFY) tablet 10 mg, 10 mg, Oral, Daily aspirin EC tablet 81 mg, 81 mg, Oral, Daily FLUoxetine (PROZAC) capsule 20 mg, 20 mg, Oral, Daily furosemide (LASIX) tablet 80 mg, 80 mg, Oral, Daily lisinopril (PRINIVIL;ZESTRIL) tablet 40 mg, 40 mg, Oral, Daily potassium chloride (KLOR-CON M) extended release tablet 30 mEq, 30 mEq, Oral, Daily simvastatin (ZOCOR) tablet 20 mg, 20 mg, Oral, Nightly colistimethate (COLYMYCIN) 100 mg in dextrose 5 % 100 mL IVPB, 1.69 mg/kg (Elburn), Intravenous, Q8H insulin regular (HUMULIN R;NOVOLIN R) injection 0-16 Units, 0-16 Units, Subcutaneous, TID AC sodium chloride flush 0.9 % injection 10 mL, 10 mL, Intravenous, 2 times per day sodium chloride flush 0.9 % injection 10 mL, 10 mL, Intravenous, PRN enoxaparin (LOVENOX) injection 40 mg, 40 mg, Subcutaneous, Daily glucose (GLUTOSE) 40 % oral gel 15 g, 15 g, Oral, PRN dextrose 50 % IV solution, 12.5 g, Intravenous, PRN glucagon (rDNA) injection 1 mg, 1 mg, Intramuscular, PRN dextrose 5 % solution, 100 mL/hr, Intravenous, PRN vancomycin (VANCOCIN) 2,000 mg in dextrose 5 % 500 mL IVPB, 2,000 mg, Intravenous, Q12H Subjective: Review of Systems All other systems reviewed and are negative. An entire ROS was performed at the time of this encounter. Unless noted above in the HPI, the ROS is negative. Objective: Physical VITALS: BP 104/62 Pulse 88 Temp 97.4 F (36.3 C) (Temporal) Resp 20 Ht 5' 6" (1.676 m) Wt (!) 378 lb 1.6 oz (171.5 kg) SpO2 96% BMI 61.03 kg/m Physical Exam Constitutional: He is oriented to person, place, and time. He appears well- developed and well-nourished. No distress. Obese adult lying supine in bed answering questions appropriately. HENT: Head: Normocephalic and atraumatic. Right Ear: External ear normal. Left Ear: External ear normal. Nose: Nose normal. Eyes: Conjunctivae are normal. Right eye exhibits no discharge. Left eye exhibits no discharge. No scleral icterus. Pulmonary/Chest: Effort normal. No respiratory distress. Neurological: He is alert and oriented to person, place, and time. Skin: Skin is warm. He is not diaphoretic. Psychiatric: He has a normal mood and affect. Vitals reviewed. DATA Impression: I reviewed: [x] laboratory results [] radiographic results At the time oftoday's encounter. Pt was advised of the results. ASSESSMENT: Type 2 diabetes uncontrolled with complication. Nonhealing foot ulceration Hyperglycemia Insulin resistance Long-term insulin use. Morbid obesity. BMI 61.8 Transgender/Female identifying as a male. PLAN: The inpt antihyperglycemic regimen will be as follows: I am continuing to administer intermittent doses of Regular Insulin sliding scale to attempt glucose lowering. Patient received 75 units of NPH this morning. If the patient remains n.p.o. this evening we will continue to utilize NPH for his basal insulin requirements. If the patient completes his operating room procedure and returns to [place] is a lot of diet and we will resume the patient's U 500 insulin at the following doses: 100/80/90 With a regular insulin sliding scale. The patient's care was discussed with the nursing staff. Inpt GMF glucose goal 150. Inpt ICU glucose goal 150. Outpt goal A1C = 7%. Insulin is necessary for ongoing mgmt. FSBS to occur qAC/HS/PRN for s/s of hyper-/hypoglycemia. FSBS data will be used to determine the next steps in antihyperglycemic medication titration duringhospital stay. If hypoglycemia were to occur itshould be treated per hospital protocol. Diet recommendation: Carbohydrate controlled 60 g limit no juice trays once able If the pt is to bedischarged from the hospital I recommend: Patient will be discharged on U 500 insulin. Doses to be determined. Please page the on-call District Sales Coordinator if there arequestions regarding Endocrine DC recommendations. If there are any questions or concerns related to the info in this progress note please page the oncall consultant rn directly. On-Call information can be found in the [facility] Directory. We appreciate the opportunity to participate in this pt's ongoing medical care. I spent 35 minutes with the pt which involved more than 51% of the time in coordination of care, medicalevaluation, review of records, and/or counseling of the pt regarding her condition/disease state/prognosis on the date of this note. Portions of the information within this encounter were entered using an electronic dictation system. Best attempts were made to edit/proofread the information prior to note completion. Despite the review of information, some errors may remain. If there are questions related to the information contained within the note please contact the signing physician directly. * Lurdes James DTR - 06/16/2019 1:19 PM EDT Nutrition rescreen completed. Patient referred to the Dietitian. * Asuncion Garibay DO - 06/16/2019 1:13 PM EDT I have evaluated the patient personally earlier this afternoon. The patient had no specific complaints. The patient is still awaiting transport to the operating room. The patient's care was discussed with nursing staff. Most recent blood sugar was >400 and I placed an order for another dose of 30 units of regular insulin. Asuncion Garibay DO 1:14 PM 06/16/19 * Theo Billingsley MD - 06/16/2019 12:25 PM EDT Progress Note [facility] Patient - Will Jacinto, Age - 53 y.o. - 1965 Room Number - [id number] [id number] Date of Admission - 06/14/2019 1:21 PM ASSESSMENT 1. R DM foot infection with osteomyelitis 2. Chronic LE lymphedema 3. DM2, uncontrolled 4. Chronic anemia 5. Bipolar disorder 6.MDRO Pseudomonas in April 2019 PLAN Continue vancomycin DC Zosyn Continue IV colistin (given h/o MDRO pseudomonas) F/u wound cultures Await OR today for R AKA Contact precautions pending cx results Will likely need 24hrs of antibiotics post surgery SUBJECTIVE: No acute complaints. OR today for AKA. Denies f/c/n/v/d. Blood cultures negative. Wound cultures pending OBJECTIVE VITALS height is 5' 6" (1.676 m) and weight is 378 lb 1.6 oz (171.5 kg) (abnormal). His temporal temperature is 97.4 F (36.3 C). His blood pressure is 104/62 and his pulse is 88. His respiration is 20 and oxygen saturation is 96%. Temp (24hrs), Av.6 F (36.4 C), Min:96.5 F (35.8 C), Max:98.9 F (37.2 C) General Appearance: alert and oriented x 3, NAD HEENT: wnl Neck: Supple Lungs: Clear to auscultation b/l on room air Cardiovascular: RRR Abdomen: Soft NT, ND, BS+ : no CVAT. No lewis catheter Neurologic: wnl, no focal deficits Skin: No rashes Extremities: bilateral lower extremity lymphedema with thick scaly skin and chronic VSD changes without warmth. R foot dressing not removed. Lines: sites clean No joint inflammation MEDICATIONS: insulin regular human 90 Units Subcutaneous Dinner [START ON 06/17/2019] insulin regular human 100 Units Subcutaneous QAM AC [START ON 06/17/2019] insulin regular human 80 Units Subcutaneous Daily before lunch ARIPiprazole 10 mg Oral Daily aspirin 81 mg Oral Daily FLUoxetine 20 mg Oral Daily furosemide 80 mg Oral Daily lisinopril 40 mg Oral Daily potassium chloride 30 mEq Oral Daily simvastatin 20 mg Oral Nightly colistimethate (COLY-MYCIN) IVPB 1.69 mg/kg (Elburn) Intravenous Q8H insulin regular 0-16 Units Subcutaneous TID AC sodium chloride flush 10 mL Intravenous 2 times per day enoxaparin 40 mg Subcutaneous Daily piperacillin-tazobactam 3.375 g Intravenous Q8H vancomycin 2,000 mg Intravenous Q12H dextrose LABS: CBC: Recent Labs 06/14/19 1456 06/15/19 0423 06/16/19 0358 06/16/19 0641 WBC 7.0 6.6 disregard* 6.7 HGB 9.6* 8.8* disregard* 8.8* PLT 396 353 -- 372 BMP: Recent Labs 06/14/19 1456 06/15/19 0423 06/16/19 0358 NA 135 135 131* K 4.8 4.7 4.9 CL 96* 100 98 CO2 27 25 23 BUN 30* 31* 31* CREATININE 0.89 0.86 0.87 GLUCOSE 325* 281* 385* Hepatic: Recent Labs 06/15/19 0423 06/16/19 0358 ALKPHOS 168* 167* ALT 27 28 AST 30 29 PROT 6.4 6.5 BILITOT 0.5 0.7 LABALBU 3.4* 3.5 Lactic Acid: Recent Labs 06/14/19 1456 LACTA 3.7* MICROBIOLOGY: 06/14 wound: P 06/14 BC: ngtd IMAGING: XR R foot: 1. Large soft tissue ulceration along the lateral midfoot adjacent to a previously resected fifth digit. The ulceration extends down to residual bone fragments from the fifth digit raising concern for osteomyelitis given no significant soft tissue coverage, however there is no erosion or definite osteolysis to confirm osteomyelitis. Consider further evaluation with MRI or CT. 2. Advanced osteoarthropathy within the midfoot with some midfoot Lupis KRANTHI [facility] 06/16/2019 12:25 PM I personally saw and evaluated the patient. I reviewed the nurse practitioner note. I agree w theirassessment and plan unless otherwise noted. Theo Nix [facility] 06/16/2019 2:58 PM * Asuncion Garibay DO - 06/16/2019 8:38 AM EDT Paged by nursing. Sugar elevated. Will adjust insulin orders for this AM. NPH 75. Regular 16. Will request recheck sugar in 3 hours. Asuncion Garibay DO 8:38 AM 06/16/19 * Sera Kraus, PT - 06/16/2019 7:52 AM EDT Physical Therapy R AKA surgery now scheduled for today. Will follow. * Sanjana Oden - 06/16/2019 7:10 AM EDT Occupational Therapy OT Hold Note Pt scheduled for R AKA today. Will hold at this time and re-attempt after surgery. Sanjana Oden, S/OT * Pawan Cartagena MD - 06/16/2019 5:47 AM EDT [facility] TELEMETRY [address] [place] [id number] Dept: [phone] Loc: [phone] Orthopedic Progress Note Name: Wlil Jacinto Date:06/16/2019 Attending:Jayesh Jordan MD Subjective JB. No events o/n. Patient prepared for OR today, expressed understanding once again and agreed that he needs an above knee amputation. States he has remained NPO. Denies other needs this AM. Objective Vitals: Vitals: 06/15/19 1920 06/15/19 2218 06/16/19 0242 06/16/19 0450 BP: 120/76 (!) 114/57 (!) 93/50 Pulse: 103 95 92 Resp: Temp: 98.5 F (36.9 C) 98.9 F (37.2 C) 97.3 F (36.3 C) TempSrc: Temporal Temporal Temporal SpO2: 97% 92% 95% Weight: (!) 378 lb 1.6 oz (171.5 kg) Height: Physical Exam: General: NAD RLE Dressing to RLE c/d/i SILT Sa/S/DP/SP/T, decreased in DP DF/PF/EHL grossly intact Previous 5th ray amputation LABS: Recent Labs 06/14/19 1456 06/15/19 0423 06/16/19 0358 WBC 7.0 6.6 3.7 HGB 9.6* 8.8* 9.3* HCT 30.2* 27.2* 30.2* PLT 396 353 -- Recent Labs 06/14/19 1456 06/15/19 0423 06/16/19 0358 NA 135 135 131* K 4.8 4.7 4.9 CL 96* 100 98 CO2 27 25 23 BUN 30* 31* 31* CREATININE 0.89 0.86 0.87 CALCIUM 9.6 8.7 8.6 Recent Labs 06/14/19 1940 INR 1.0 Recent Labs 06/14/19 1456 SEDRATE 65* CRP 30.7* No results for input(s): HCG in the last 72 hours. Assessment Will is a 53 y.o.adult RIGHT foot ulceration and chronic leg rash Plan -Plan for OR today for R AKA -Patient consented and in agreement for AKA -NPO -Added -Cx moderate GPC/GNB -Pre-op labs completed -Type and screen last completed 06/14/19 -Pain and medical management per primary team. -Please hold anticoagulants in anticipation of surgery -Please comment on clearance/medical optimization for surgery Pawan Cartagena MD PGY-2, Orthopaedic Surgery [phone] 06/16/2019 .6:23 AM * Asuncion Garibay DO - 06/15/2019 2:[address] Lee to discuss insulin doses entered by their team. Awaiting return call. I am DC'ing their entered insulin orders. Plan to to use NPH only while NPO. Once pt is post op and eating will return pt to using U500 insulin doses. Asuncion Garibay DO 2:57 PM 06/15/19 * Sanjana Oden - 06/15/2019 1:22 PM EDT Occupational Therapy OT Hold Note OT eval and treat orders received. Pt scheduled for R AKA today. Will hold at this time and re-attempt after surgery. Sanjana Oden, S/OT * Sera Kraus PT - 06/15/2019 10:34 AM EDT Physical Therapy Hold PT. Plans for AKA today. Will evaluate after surgery. * Anand Lee MD - 06/15/2019 9:26 AM EDT Department of Internal Medicine General Internal Medicine Attending Progress Note SUBJECTIVE: Patient seen and examined, admitted yesterday with Osteomylitis of non healing diabeticwound, going on for 2 years . Medications Current Facility-Administered Medications: sodium chloride flush 0.9 % injection 10 mL, 10 mL, Intravenous, 2 times per day sodium chloride flush 0.9 % injection 10 mL, 10 mL, Intravenous, PRN enoxaparin (LOVENOX) injection 40 mg, 40 mg, Subcutaneous, Daily piperacillin-tazobactam (ZOSYN) 3.375 g in dextrose 50 mL IVPB extended infusion (premix), 3.375 g,Intravenous, Q8H glucose (GLUTOSE) 40 % oral gel 15 g, 15 g, Oral, PRN dextrose 50 % IV solution, 12.5 g, Intravenous, PRN glucagon (rDNA) injection 1 mg, 1 mg, Intramuscular, PRN dextrose 5 % solution, 100 mL/hr, Intravenous, PRN insulin lispro (HUMALOG) injection vial 0-18 Units, 0-18 Units, Subcutaneous, TID WC vancomycin (VANCOCIN) 2,000 mg in dextrose 5 % 500 mL IVPB, 2,000 mg, Intravenous, Q12H OBJECTIVE: VITALS: BP 134/70 Pulse 78 Temp 97.1 F (36.2 C) (Temporal) Resp 18 Ht 5' 6" (1.676 m) Wt (!) 382 lb (173.3 kg) SpO2 95% BMI 61.66 kg/m CONSTITUTIONAL: awake, alert, cooperative, no apparent distress. EYES: Lids and lashes normal, pupils equal, round and reactive to light, extra ocular muscles intact ENT: Normocephalic, without obvious abnormality, oral pharynx with moist mucus membranes NECK: Supple, symmetrical, trachea midline, no adenopathy, thyroid symmetric, not enlarged and no tenderness, skin normal LUNGS: No increased work of breathing, good air exchange, clear to auscultation bilaterally CARDIOVASCULAR: Normal apical impulse, regular rate and rhythm, normal S1 and S2 ABDOMEN: Normal bowel sounds, soft, non-distended, non-tender, no hepatosplenomegaly MUSCULOSKELETAL: Right leg swelling- cellulitis- chronic venous stasis changes. Right lateral foot wound. Stage 3. NEUROLOGIC: Awake, alert, oriented to name, place and time. Cranial nerves II- XII are grossly intact. No focal deficits noted. SKIN: no bruising or bleeding. Warm and dry. PSYCHOLOGICALl: Mood and affect are normal. Pleasant and cooperative Data CBC with Differential: Lab Results Component Value Date WBC 6.6 06/15/2019 RBC 3.64 06/15/2019 HGB 8.8 06/15/2019 HCT 27.2 06/15/2019 PLT 353 06/15/2019 MCV 74.8 06/15/2019 MCH 24.1 06/15/2019 MCHC 32.2 06/15/2019 RDW 22.9 06/15/2019 LYMPHOPCT 20.9 06/14/2019 MONOPCT 8.5 06/14/2019 BASOPCT 0.5 06/14/2019 MONOSABS 0.6 06/14/2019 LYMPHSABS 1.5 06/14/2019 EOSABS 0.1 06/14/2019 BASOSABS 0.0 06/14/2019 BMP: Lab Results Component Value Date NA 135 06/15/2019 K 4.7 06/15/2019 CL 100 06/15/2019 CO2 25 06/15/2019 BUN 31 06/15/2019 CREATININE 0.86 06/15/2019 CALCIUM 8.7 06/15/2019 GLUCOSE 281 06/15/2019 Albumin: No results found for: ALB Magnesium: Lab Results Component Value Date MG 1.9 02/27/2019 Phosphorus: No results found for: PHOS Urine Culture: No components found for: CURINE Blood Culture: No components found for: CBLOOD, CFUNGUSBL X-rays reviewed and agree with the radiologists interpretation ASSESSMENT AND PLAN: Patient Active Problem List Diagnosis Cellulitis Chronic osteomyelitis (HCC) Uncontrolled type 2 diabetes mellitus with complication (HCC) Type 2 diabetes mellitus with hyperglycemia, with long-term current use of insulin (HCC) Class 3 severe obesity due to excess calories with serious comorbidity and body mass index (BMI) of50.0 to 59.9 in adult (HCC) 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 (HCC) Cellulitis and abscess of lower extremity Hyperandrogenism Chronic acquired lymphedema Left leg cellulitis Class 3 severe obesity due to excess calories with serious comorbidity and body mass index (BMI) of60.0 to 69.9 in adult (HCC) Post-menopausal bleeding Hyperglycemia Diabetic foot infection (HCC) Right Diabetic foot OM: ID on board, antibiotics, plan for Right AKA. DM II: Hb A 1 c was 10. Pt on a rather ocmplex and high doses of Insulin. Consult endocrine. Obesity: counseled. Debility: Resides at LTC- will need SNF. Depression: on meds. DVT and GI prophylaxis ANAND LEE MD * Juan Carey MD - 06/15/2019 6:32 AM EDT [facility] TELEMETRY [address] [facility] [address] Dept: [phone] Loc: [phone] Orthopedic Progress Note Name: Will Jacinto Date:06/15/2019 Attending:MD Vonda Dumont. No events o/n. Patient prepared for OR today, expressed understanding once again and agreed that he needs an above knee amputation. Objective Vitals: Vitals: 06/14/19 1343 06/14/19 1750 06/14/19 1833 BP: (!) 153/65 (!) 153/58 (!) 168/62 Pulse: 97 99 94 Resp: 20 18 Temp: 98.3 F (36.8 C) 98.4 F (36.9 C) 98.3 F (36.8 C) TempSrc: Oral Oral Temporal SpO2: 100% 95% 100% Weight: (!) 382 lb (173.3 kg) Height: 5' 6" (1.676 m) Physical Exam: General: NAD RLE 3-4 cm ulceration on lateral side of right foot as seen below. Ulcer does probe to bone. Fibrinous granulation tissue. Surrounding maceration and erythema. Mild TTP about ulcer. Toes appear erythematous. Chronic erythematous rash about the entire circumference of the leg. Prior fifth ray amputationscar. Wiggles toes. Moves ankle. SILT s/s/sp/dp/t. Diminished sensation to light touch in DP distrib ution. Another superficial ulceration about distal lateral leg that does not go deep. LABS: Recent Labs 06/14/19 1456 06/15/19 0423 WBC 7.0 6.6 HGB 9.6* 8.8* HCT 30.2* 27.2* PLT 396 353 Recent Labs 06/14/19 1456 06/15/19 0423 NA 135 135 K 4.8 4.7 CL 96* 100 CO2 27 25 BUN 30* 31* CREATININE 0.89 0.86 CALCIUM 9.6 8.7 Recent Labs 06/14/19 1940 INR 1.0 Recent Labs 06/14/19 1456 SEDRATE 65* CRP 30.7* No results for input(s): HCG in the last 72 hours. Assessment Will is a 53 y.o.adult RIGHT foot ulceration and chronic leg rash Plan -Plan for OR this afternoon for R AKA -Patient consented and in agreement for AKA -NPO -Added -Pre-op labs completed -Pain and medical management per primary team. -Please hold anticoagulants in anticipation of surgery -Please comment on clearance/medical optimization for surgery * Asuncion Garibay DO - 06/14/2019 9:01 PM EDT Consult received. Pt will be seen tomorrow, 06/15/19. For now, insulin doses adjusted based on available EMR info. NPH 50 units tonight for basal coverage. Asuncion Garibay DO 9:02 PM 06/14/19 * Ginger Fuentes RPH - 06/14/2019 7:32 PM EDT Infectious Diseases has been consulted and will manage Vancomycin at this time. Thank you for the consult. Pharmacy signing off for vancomycin dosing. Ginger Fuentes RPh Date: 06/14/19 Time: 7:32 PM documented in this encounter Hospital Course * Nabil Hill DO - 09/28/2020 10:05 AM EST Physician Discharge Summary Patient ID: Will Jacinto [id number] 54 y.o. 1965 Admit date: 09/17/2020 Discharge date and time: 09/28/20 Admitting Physician: Nabil Hill DO Discharge Physician: NABIL HILL MD Admission Diagnoses: Ileus (HCC) [K56.7] Ileus (HCC) [K56.7] Discharge Diagnoses: same, gastroparesis Admission Condition: good Discharged Condition: stable Indication for Admission: ileus Hospital Course: pt admitted with abdominal pain and ileus. He was seen by GI and had an EGD which showed some esophagitis. He was on protonix iv. He continued to have issues with nausea but then finally had a BM. He is on reglan now due to gastroparesis. He is doing better overall but still feels nauseated but he continues to request iv morphine. I feel that some of this is psychological and GI and I feel he is stable to return to [place] on this current treatment regimen with smaller meals Consults: GI Significant Diagnostic Studies: labs: Treatments: as above Discharge Exam: BP (!) 151/87 Pulse 88 Temp 96.6 F (35.9 C) (Temporal) Resp 20 Ht 5' 6" (1.676 m) Wt (!) 343 lb 1.6 oz (155.6 kg) SpO2 96% BMI 55.38 kg/m General Appearance: Alert, cooperative, no distress, appears stated age Head: Normocephalic, without obvious abnormality, atraumatic Eyes: PERRL, conjunctiva/corneas clear, EOM's intact, fundi benign, both eyes Ears: Normal TM's and external ear canals, both ears Nose: Nares normal, septum midline, mucosa normal, no drainage or sinus tenderness Throat: Lips, mucosa, and tongue normal; teeth and gums normal Neck: Supple, symmetrical, trachea midline, no adenopathy; thyroid: No enlargement/tenderness/nodules; no carotid bruit or JVD Back: Symmetric, no curvature, ROM normal, no CVA tenderness Lungs: Clear to auscultation bilaterally, respirations unlabored Chest wall: No tenderness or deformity Heart: Regular rate and rhythm, S1 and S2 normal, no murmur, rub or gallop Abdomen: Soft, non-tender, bowel sounds active all four quadrants, no masses, no organomegaly Genitalia: Normal male without lesion, discharge or tenderness Rectal: Normal tone, normal prostate, no masses or tenderness; guaiac negative stool Extremities: Extremities normal, atraumatic, no cyanosis or edema Pulses: 2+ and symmetric all extremities Skin: Skin color, texture, turgor normal, no rashes or lesions Lymph nodes: Cervical, supraclavicular, and axillary nodes normal Neurologic: CNII-XII intact. Normal strength, sensation and reflexes throughout Disposition: SNF Patient Instructions: @MEDDISCHARGE@ Activity: activity as tolerated Diet: diabetic diet Wound Care: none needed Follow-up with Dr Guz[place] in [place] [facility] Signed: NABIL HILL 09/28/2020 10:05 AM documented in this encounter* Michael Martin MD - 11/28/2020 9:11 AM EST Hospitalist Discharge Summary Will Jacinto : 1965 Admit date: 11/22/2020 Discharge date: 11/28/2020 Admitting Physician: Art Stapleton MD Primary Care Physician: Jared Guzman MD Discharge Diagnoses: 1. Abdominal pain, diabetic gastroparesis 2. Insulin-dependent diabetes with severe hyperglycemia 3. Chest pain, atypical -resolved. 4. Dysfunctional uterine bleeding in transgender male, hx of endometrial hyperplasia 5. Morbid obesity, obstructive sleep apnea on no mask 6. S/p RLE AKA 7. HTN 8. HPL 9. Depression/schizophrenia/bipolar type 1 10. Hx of chronic LLE cellulitis/lymphedema 11. Debility Hospital Course: Improved. This 55-year-old transgender male, biologically female, presented from his [facility] after abdominal pain, out of control glucose readings and reported mental status change. However, EMS in the hospital reported that he was alert and oriented x3, however, he says that recently he has had increasing abdominal distention and distress and he noticed that his glucoses have been harder and harder to control. Pt was admitted to [facility]. Pt had dysfunctinal uterine bleeding and transferred to [facility] for Video Manager eval. Also had ab pain and found to have ileus. Seen by GI and recommended reglan. Pt had BMs. abd pain better. Advance diet to GI soft Seen by Video Manager and had hysteroscopy with biopsy done KUB improving. Follow today. Cont laxative regimen. KUB improved Seen by GI -started reglan Cont PPI Endocrinology following for hyperglycemia Pt denied any chest pain. Troponin negative. Seen by cardiology Added PT/OT Pt is tolerating diet well and he will be discharged today in stable condition. Dietary Nutrition Supplements: Diabetic Oral Supplement DIET GI SOFT; Vitals: BP (!) 163/72 Pulse 70 Temp 97.2 F (36.2 C) (Temporal) Resp 18 Ht 5' 6" (1.676 m) Wt (!) 317 lb 4.8 oz (143.9 kg) SpO2 92% BMI 51.21 kg/m Pulse Ox: SpO2 Av.8 % Min: 92 % Max: 97 % Supplemental O2: General appearance: alert and cooperative with exam Lungs: clear to auscultation bilaterally Heart: regular rate and rhythm, S1, S2 normal, no murmur, click, rub or gallop, no chest wall tenderness Abdomen: soft, non-tender; bowel sounds normal; no masses, no organomegaly Extremities: Chronic LLE edema, + venous stasis changes, s/p R AKA Neurologic: No obvious focal neurologic deficits. No results for input(s): WBC, HGB, PLT in the last 72 hours. Recent Labs 11/26/20 0000 11/27/20 0316 11/28/20 0322 NA 130* 132* 134* K 3.9 4.2 4.3 CL 98 104 105 CO2 25 21* 25 BUN 10 13 10 CREATININE 0.63 0.57 0.66 GLUCOSE 188* 225* 100 Recent Labs 11/26/20 0000 11/27/20 0316 11/28/20 0322 AST 29 26 26 ALT 33 34 30 BILITOT 0.5 0.6 0.6 ALKPHOS 88 97 77 Lab Results Component Value Date TRIG 190 08/23/2020 HDL 31 08/23/2020 LDLCALC 56 08/23/2020 CHOL 125 08/23/2020 No results found for: PHART, PO2ART, YNI7DVZ No results for input(s): INR in the last 72 hours. No results for input(s): DDIMER in the last 72 hours. No components found for: HGBA1C Lab Results Component Value Date TSH 2.356 11/26/2020 Urine Culture: Results for orders placed or performed during the hospital encounter of 09/06/18 Urine Culture Specimen: Urine, clean catch Result Value Ref Range Urine Culture, Routine Proteus mirabilis (A) Urine Culture, Routine >100,000 CFU/ml Urine Culture, Routine Enterococcus faecium (A) Urine Culture, Routine 10,000-50,000 CFU/ml Susceptibility testing performed only upon request for cultures with multiple types of microorganisms below 100,000 CFU/ml. Susceptibility Proteus mirabilis - BACTERIAL SUSCEPTIBILITY PANEL BY TULIO amikacin <=2 Sensitive amoxicillin-clavulanate 8 Sensitive ampicillin >=32 Resistant ampicillin-sulbactam 8 Sensitive aztreonam <=1 Sensitive ceFAZolin 8 Resistant cefepime <=1 Sensitive cefTRIAXone <=1 Sensitive ciprofloxacin >=4 Resistant ertapenem <=0.5 Sensitive gentamicin <=1 Sensitive levofloxacin >=8 Resistant meropenem <=0.25 Sensitive nitrofurantoin Resistant piperacillin-tazobactam <=4 Sensitive trimethoprim-sulfamethoxazole >=320 Resistant Significant Diagnostic Studies: Xr Abdomen (kub) (single Ap View) Result Date: 11/27/2020 Patient Name: WILL JACINTO Diagnostic Radiology ACCESSION EXAM DATE/TIME PROCEDURE ORDERING PROVIDER [id number] 11/27/2020 08:28 EST CR Abdomen AP MD MARTIN KHALED CPT code 15507 Reason For Exam (CR Abdomen AP) ileus Report ABDOMEN -1 VIEW: CLINICAL INDICATION: Ileus TECHNIQUE: 1 view of abdomen and pelvis COMPARISON: November 25, 2020 FINDINGS: Overall interval decrease in the amount of large and small bowel gas, which is in a nonobstructed pattern. No abnormal soft tissue calcifications are identified. Multilevel thoracolumbar degenerative change. IMPRESSION: Overall interval decrease in the amount of large and small bowel gas, which is in a n onobstructed pattern. Report Dictated on --- Final --- Dictated: 18:38 am Dictating Physician: MD HILL JASON Signed Date and Time: 11/27/2020 8:40 am Signed by:MD HILL JASON Transcribed Date and Time: 11/27/2020 8:38 Xr Abdomen (kub) (single Ap View) Result Date: 11/25/2020 Patient Name: WILL JACINTO Diagnostic Radiology ACCESSION EXAM DATE/TIME PROCEDURE ORDERING PROVIDER [id number] 11/25/2020 15:08 EST CR Abdomen AP Lorenzo STAPLETON MICHAEL CPT code 59941 Reason For Exam (CR Abdomen AP) abd distention Report EXAM TYPE: CR Abdomen AP EXAM DATE AND TIME: 11/25/2020 3:08 PM EST INDICATION: 55 years Female with abdominal distention COMPARISON: CT from three days ago TECHNIQUE: AP supine radiograph of the abdomen and pelvis was obtained. FINDINGS: Gaseous distention of both small bowel and large bowel loops. Limited evaluation for free air or air-fluid levels on supine-only imaging. No abnormal soft tissue calcifications are seen. Degenerative changes are seen in the visualized spine. The visualized lung bases are unremarkable. IMPRESSION: Gaseous distention of small and large bowel loops, likely due to ileus; recommend continued imaging follow-up. Report Dictated on --- Final --- Dictating Physician: MD HANNA NICHOLAS Signed Date and Time: 11/25/2020 3:29 pm Signed by: MD HANNA NICHOLAS Transcribed Date and Time: 11/25/2020 3:31 Xr Chest Portable Result Date: 11/22/2020 Patient Name: WILL JACINTO Diagnostic Radiology ACCESSION EXAM DATE/TIME PROCEDURE ORDERING PROVIDER [id number] 11/22/2020 18:30 EST CR Chest Portable JOEL ZHONG CPT code 86112 Reason For Exam (CR Chest Portable) SOB Report Reason for examination: Shortness of breath. Single portable chest is obtained at 1822 hours. Comparison is dated 06/14/2019. The trachea is midline. The mediastinal and cardiac silhouettes are stable. The depth of inspiration is slightly shallow. There is crowding of the central bronchovascular lung markings. No confluent infiltrates, significant pleural effusion or pneumothorax is seen. Report Dictated on --- Final --- Dictating Physician: MD GRIFFITHS LAUREN B Signed Date and Time: 11/22/2020 6:32 pm Signed by: MD GRIFFITHS LAUREN B Transcribed Date and Time: 11/22/2020 6:33 Ct Abdomen Pelvis W Contrast Result Date: 11/22/2020 Patient Name: WILL JACINTO Computed Tomography ACCESSION EXAM DATE/TIME PROCEDURE ORDERING PROVIDER [id number] 11/22/2020 19:[address] Abdomen/Pelvis w/ IV JOEL HUDSON Contrast (IV Onl CPT code 77869 Q9967 Reason For Exam (CT Abdomen/Pelvis w/ IVContrast (IV Onl) abd pain Report EXAM: CT Abdomen and pelvis INDICATION: Abdominal pain COMPARISON: 09/17/2020 TECHNIQUE: CT of the abdomen and pelvis was performed with contrast (75 mL of Isovue 370 was injected intravenously). Coronal and sagittal reformats were obtained. FINDINGS: LOWER CHEST: Stable appearance of a 3 mm right middle lobe nodule. ABDOMEN: LIVER: There is relative hypoattenuation of liver parenchyma as compared to the spleen, consistent with hepatic steatosis. BILE DUCTS: normal caliber. GALLBLADDER: No calcified gallstones. Normal caliber wall. PANCREAS: within normal limits. SPLEEN: within normal limits. ADRENALS: within normal limits. KIDNEYS: within normal limits. PELVIS: REPRODUCTIVE ORGANS: no pelvic masses. URETERS: within normal limits. BLADDER: within normal limits. BOWEL: There is marked gastric distention. The small and large bowel are otherwise normal in caliber without evidence of obstruction. Appendix not well visualized, however, there are no rheumatoid changes in the right lower quadrant to suggest acute appendicitis. No enlarged mesenteric lymph nodes. PERITONEUM: no ascites or free air, no fluid collection. VESSELS: Within normal limits. LYMPHNODES: No enlarged nodes. RETROPERITONEUM: within normal limits. ABDOMINAL WALL: within normal limits. BONES: Multilevel degenerative changes of the imaged spine IMPRESSION: Computed Tomography Report 1. Moderate gastric distention. Remainder of bowel is normal in caliber without evidence of obstruction. 2. Hepatic steatosis. 3. Stable 3 mm right middle lobe pulmonary nodule. Report Dictated on Workstation: [id number] --- Final --- Dictating Physician: MD KELLEY KEVIN Signed Date and Time: 11/22/2020 7:43 pm Signed by: MD KELLEY KEVIN Transcribed Date and Time: 11/22/2020 7:44 Us Non Ob Transvaginal Result Date: 11/25/2020 Patient Name: WILL JACINTO Ultrasound ACCESSION EXAM DATE/TIME PROCEDURE ORDERING PROVIDER [id number] 11/25/2020 10:38 EST US Transvaginal MD CRAMER DIANA CHRISTINE CPT code 72478 Reason For Exam (US Transvaginal) AUB Report ULTRASOUND PELVIS: CLINICAL INDICATION: Abnormal uterine bleeding LMP: post menopausal COMPARISON: CT from 11/22/2020 TECHNIQUE: Transabdominal and transvaginal to optimally evaluate the ovaries and adnexal structures including colorflow and spectral Doppler imaging. Limited transvaginal images. FINDINGS: Uterus: Orientation: Anteverted Size: 12.8 x 6.4 x 7.8 cm Endometrium: Difficult to visualized, including limited transvaginal images, but appears heterogeneous and thickened, measuring 16 mm Mass: none Cervix: normal Neitherovary was visualized. Cul-de-sac: No free pelvic fluid IMPRESSION: 1. Endometrial thickening. Giventhe history of postmenopausal bleeding, hysteroscopy and tissue sampling is recommended as the findings could be seen in endometrial hyperplasia, polyp or neoplasm. 2. Neither ovary was visualized. Report Dictated on --- Final --- Dictating Physician: MD HANNA NICHOLAS Signed Date and Time: 11/25/2020 10:45 am Signed by: MD HANNA NICHOLAS Transcribed Date and Time: 11/25/2020 10:46 Discharge Medications: Will Jacinto "Maria Luisa" Home Medication Instructions JORDYN:[id number] Printed on:11/28/20 0911 Medication Information acetaminophen (TYLENOL) 325 MG tablet Take 2 tablets by mouth every 4 hours as needed for Pain ARIPiprazole (ABILIFY) 10 MG tablet Take 10 mg by mouth daily atorvastatin (LIPITOR) 10 MG tablet Take 1 tablet by mouth daily bisacodyl (DULCOLAX) 5 MG EC tablet Take 1 tablet by mouth every 12 hours as needed for Constipation dilTIAZem (CARDIZEM CD) 180 MG extended release capsule Take 1 capsule by mouth daily FLUoxetine (PROZAC) 20 MG capsule Take 40 mg by mouth daily insulin regular human (HUMULIN R U-500 KWIKPEN) 500 UNIT/ML SOPN concentrated injection pen Inject 80 Units into the skin every morning (before breakfast) insulin regular human (HUMULIN R U-500 KWIKPEN) 500 UNIT/ML SOPN concentrated injection pen Inject 55 Units into the skin daily (before lunch) insulin regular human (HUMULIN R U-500 KWIKPEN) 500 UNIT/ML SOPN concentrated injection pen Inject 75 Units into the skin Daily with supper lisinopril (PRINIVIL;ZESTRIL) 40 MG tablet Take 40 mg by mouth daily Magnesium Hydroxide (MILK OF MAGNESIA CONCENTRATE PO) Take 30 mLs by mouth as needed (constipation) megestrol (MEGACE) 40 MG tablet Take 2 tablets by mouth 2 times daily metoclopramide (REGLAN) 5 MG/ML injection Infuse 2 mLs intravenously every 6 hours metoprolol tartrate (LOPRESSOR) 25 MG tablet Take 1 tablet by mouth 2 times daily miconazole (MICOTIN) 2 % powder Apply topically 2 times daily. pantoprazole (PROTONIX) 40 MG tablet Take 1 tablet by mouth every morning (before breakfast) polyethylene glycol (GLYCOLAX) 17 g packet Take 17 g by mouth daily Consults: GI, cardiology, Video Manager Disposition: Patient discharged in stable condition. Greater than 30 minutes spent discharging the patient and coming up with patient discharge plan. Follow up with Jared Guzman MD in 1-2 weeks. Signed: Michael Martin MD 11/28/2020, 9:11 AM * Art Stapleton MD - 11/25/2020 1:48 PM EST Discharge Summary Date: 11/25/2020 Patient Name: Will Jacinto Date of : 1965 Age: 55 y.o. 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 * Hospital Stay Narrative of Hospital Course: Consultants: IP CONSULT TO ENDOCRINOLOGYIP CONSULT TO GIIP CONSULT TO CARDIOLOGYIP CONSULT TO OPERATIVE SUPERVISOR Surgeries/procedures Performed: Treatments: Discharge Plan/Disposition: Home Hospital/Incidental Findings Requiring Follow Up: Patient Instructions: Diet: Activity: For number of days (if applicable): Other Instructions: Provider Follow-Up: No follow-ups on file. Significant Diagnostic Studies: Recent Labs: Admission on 11/22/2020No results displayed because visit has over 200 results. Radiology last 7 days: No results found. @DCPENDLAB@ Discharge Medications Current Discharge Medication ListSTART taking these medicationsatorvastatin (LIPITOR) 10 MG tabletTake 1 tablet by mouth dailyQty: 30 tablet Refills: 3 Current Discharge Medication ListCONTINUE these medications which have CHANGEDacetaminophen (TYLENOL) 325 MG tabletTake 2 tablets by mouth every 4 hours as needed for PainQty: 120 tablet Refills: 3megestrol (MEGACE) 40 MG tabletTake 2 tablets by mouth 2 times dailyQty: 30 tablet Refills: 3dilTIAZem (CARDIZEM CD) 180 MG extended release capsuleTake 1 capsule by mouth dailyQty: 30 capsule Refills: 3miconazole (MICOTIN) 2 % powderApply topically 2 times daily.Qty: 45 g Refills: 1bisacodyl (DULCOLAX) 5 MG EC tabletTake 1 tablet by mouth every 12 hours as needed for ConstipationQty: 222 tablet Refills: 5metoclopramide (REGLAN) 5 MG/ML injectionInfuse 2 mLs intravenously every 6 hoursQty: 240 mL Refills: 0pantoprazole (PROTONIX) 40 MG tabletTake 1 tablet by mouth every morning (before breakfast)Qty: 30 tablet Refills: 3 Current Discharge Medication ListCONTINUE these medications which have NOT CHANGEDinsulin regular human (HUMULIN R U-500 KWIKPEN) 500 UNIT/ML SOPN concentrated injection ncp085 units before breakfast, 110 units before lunch, 150 units before dinnerQty: 1 pen Refills: 0FLUoxetine (PROZAC) 20 MG capsu leTake 40 mg by mouth daily Magnesium Hydroxide (MILK OF MAGNESIA CONCENTRATE PO)Take 30 mLs by mouth as needed (constipation)ARIPiprazole (ABILIFY) 10 MG tabletTake 10 mg by mouth dailylisinopril (PRINIVIL;ZESTRIL) 40 MG tabletTake 40 mg by mouth daily Current Discharge Medication ListSTOP taking these medicationscyclobenzaprine (FLEXERIL) 10 MG tabletComments:Reason for Stopping:tiZANidine (ZANAFLEX) 4 MG tabletComments:Reason for Stopping:ondansetron (ZOFRAN) 4 MG tabletComments:Reason for Stopping:SALINE NASAL SPRAY NAComments:Reason for Stopping:vitamin C (ASCORBIC ACID) 500 MG tabletComments:Reason for Stopping:ferrous sulfate 325 (65 Fe) MG tabletComments:Reason for Stopping:mineral oil-hydrophilic petrolatum (AQUAPHOR) ointmentComments:Reason for Stopping:ketoconazole (NIZORAL) 2 % shampooComments:Reason for Stopping:Multiple Vitamins-Minerals (THERAPEUTIC MULTIVITAMIN-MINERALS) tabletComments:Reason for Stopping:bisacodyl (DULCOLAX) 10 MG suppositoryComments:Reason for Stopping:Biotin 10 MG tabletComments:Reason for Stopping:benzonatate (TESSALON) 200 MG capsuleComments:Reason for Stopping:Acidophilus Lactobacillus CAPSComments:Reason for Stopping:aspirin 81 MG tabletComments:Reason for Stopping:simvastatin (ZOCOR) 20 MG tabl etComments:Reason for Stopping:furosemide (LASIX) 80 MG tabletComments:Reason for Stopping: Time Spent on Discharge:E] minutes were spent in patient examination, evaluation, counseling as well as medication reconciliation, prescriptions for required medications, discharge plan, and follow up. 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 * HOSPITAL COURSE: Chronic abd pain & gastric distention-no apparent obstruction--continued vaginal bleeding--pelvic US shows increased thickening of endometrium--STEAM SHOVELMAN recommends further acute eval by STE[facility] SH[facility]EL[facility] ON[facility]--Dr Walsh has seen pt. Previously & recommended hysterectomy, which was postponed at that time due to other medical issues--blood sugar now controlled SIGNIFICANT DIAGNOSTIC STUDIES: Ct---pelvic US CONSULTANTS: STEAM SHOVELMAN--cardio RECOMMENDED NEXT STEPS: To [facility] & Dr Walsh ([facility]EL[facility]) ---resume aspirin when bleeding issues resolved DISCHARGE MEDICATIONS: Will Jacinto "Maria Luisa" Home Medication Instructions JORDYN:[id number] Printed on:11/25/20 5957 Medication Information acetaminophen (TYLENOL) 325 MG tablet Take 2 tablets by mouth every 4 hours as needed for Pain ARIPiprazole (ABILIFY) 10 MG tablet Take 10 mg by mouth daily atorvastatin (LIPITOR) 10 MG tablet Take 1 tablet by mouth daily bisacodyl (DULCOLAX) 5 MG EC tablet Take 1 tablet by mouth every 12 hours as needed for Constipation dilTIAZem (CARDIZEM CD) 180 MG extended release capsule Take 1 capsule by mouth daily FLUoxetine (PROZAC) 20 MG capsule Take 40 mg by mouth daily insulin regular human (HUMULIN R U-500 KWIKPEN) 500 UNIT/ML SOPN concentrated injection pen 160 units before breakfast, 110 units before lunch, 150 units before dinner lisinopril (PRINIVIL;ZESTRIL) 40 MG tablet Take 40 mg by mouth daily Magnesium Hydroxide (MILK OF MAGNESIA CONCENTRATE PO) Take 30 mLs by mouth as needed (constipation) megestrol (MEGACE) 40 MG tablet Take 2 tablets by mouth 2 times daily metoclopramide (REGLAN) 5 MG/ML injection Infuse 2 mLs intravenously every 6 hours miconazole (MICOTIN) 2 % powder Apply topically 2 times daily. pantoprazole (PROTONIX) 40 MG tablet Take 1 tablet by mouth every morning (before breakfast) DIET: DIET CLEAR LIQUID; ACTIVITY: COMPLEXITY OF FOLLOW UP: [] Moderate Complexity: follow up within 7-14 calendar days (48785) [] Severe Complexity: follow up within 7 calendar days (55321) FOLLOW UP TESTING, PENDING RESULTS OR REFERRALS AT TRANSITIONAL CARE VISIT: [] Yes [] No PENDING STUDIES: No DISPOSITION: Transfer to Acute Care Hospital FACILITY/HOME CARE AGENCY NAME: Follow up with Jared Guzman MD [address] [place] [address] INSTRUCTIONS TO MA/SW DISCHARGE TIME: SIGNED: ART STAPLETON MD 11/25/2020, 1:49 PM documented in this encounter Chief Complaint and Reason for Visit Chief Complaint INTERMEDIATE LAB WOR K Chief Complaint INTERMEDIATE LAB WOR K INTERMEDIATE LAB WORK INTERMEDIATE LAB WORK Chief Complaint INTERMEDIATE LAB WOR K INTERMEDIATE LAB WORK INTERMEDIATE LAB WORK INTERMEDIATE LAB WORK Chief Complaint INTERMEDIATE LABWORK Chief Complaint INTERMEDIATE LABWORK LABWORK Chief Complaint INTERMEDIATE LABWORK LABWORK LABWORK Chief Complaint LABWORK INTERMEDIATE LABWORK INTERMEDIATE LAB WORK Chief Complaint INTERMEDIATE LABWORK INTERMEDIATE LAB WORK INTERMEDIATE LABWORK Chief Complaint INTERMEDIATE LABWORK LABWORK LABWORK LABWORK Chief Complaint LABWORK LABWORK INTERMEDIATE LAB WORK LABWORK INTERMEDIATE LABWORK Chief Complaint INTERMEDIATE LAB WOR K LABWORK INTERMEDIATE LABWORK LABWORK INTERMEDIATE LAB WORK Chief Complaint LABWORK INTERMEDIATE LABWORK LABWORK INTERMEDIATE LAB WORK INTERMEDIATE LAB WORK Chief Complaint INTERMEDIATE LABWORK LABWORK INTERMEDIATE LAB WORK INTERMEDIATE LABWORK INTERMEDIATE LAB WORK Chief Complaint LABWORK INTERMEDIATE LAB WORK INTERMEDIATE LABWORK INTERMEDIATE LAB WORK LABWORK Chief Complaint LABWORK INTERMEDIATE LAB WORK INTERMEDIATE LABWORK INTERMEDIATE LAB WORK INTERMEDIATE LAB WORK LABWORK LABWORK Chief Complaint INTERMEDIATE LAB WOR K INTERMEDIATE LABWORK INTERMEDIATE LAB WORK INTERMEDIATE LAB WORK LABWORK LABWORK LABWORK LABWORK Chief Complaint INTERMEDIATE LAB WOR K INTERMEDIATE LABWORK INTERMEDIATE LAB WORK INTERMEDIATE LAB WORK LABWORK LABWORK LABWORK LABWORK LABWORK Chief Complaint Admit Date LABWORK September 22, 2024 5:00am LABWORK October 30, 2024 5:00am INTERMEDIATE LAB WORK November 10, 2024 9:46am INTERMEDIATE LAB WORK November 30, 2024 5:00am INTERMEDIATE LAB WORK December 05, 2024 4:00am INTERMEDIATE LAB WORK December 27 5:00am Chief Complaint Admit Date INTERMEDIATE LAB WORK November 10, 2024 9:46am INTERMEDIATE LAB WORK November 30, 2024 5:00am INTERMEDIATE LAB WORK December 05, 2024 4:00am INTERMEDIATE LAB WORK December 27 5:00am INTERMEDIATE LAB WORK February 07, 2025 5: 00am Chief Complaint Admit Date INTERMEDIATE LAB WORK December 27 5:00am INTERMEDIATE LAB WORK February 07, 2025 5: 00am INTERMEDIATE LAB WORK February 26, 2025 4 :00am Reason for Referral Specialty Diagnoses / Procedures Referred By Contac t Referred To Contact Oral Surgery Diagnoses Dental caries Jared Guzman [address] [place] [address] [facility] [address] [place] [address] Referral ID Status Reason Start Date Expiration Date V isits Requested Visits Authorized [id number] Authorized 01/26/2023 01/27/2024 3 3 Scheduling Instructions Please call the supervisor finishing Clinic at [facility] at to schedule an appointment if one was not made for you today. Comments EXT #9, 12 Specialty Diagnoses / Procedures Referred By Contac t Referred To Contact Caridad Evans MD [address] [place] [address] Referral ID Status Reason Start Date Expiration Date V isits Requested Visits Authorized [id number] Pending Review 1 1 Specialty Diagnoses / Procedures Referred By Contac t Referred To Contact Radiology Diagnoses Nausea with vomiting, unspecified Procedures NM gastric emptying solid Elda Reaves (Kelley) [address] [facility] [place] [address] Referral ID Status Reason Start Date Expiration Date V isits Requested Visits Authorized [id number] Authorized 11/24/2023 11/23/2024 3 3 Referral ID Status Reason Start Date Expiration Date V isits Requested Visits Authorized [id number] Pending Review 11/24/2023 11/23/2024 3 3 Specialty Diagnoses / Procedures Referred By Contac t Referred To Contact Radiology Diagnoses Lung nodule Procedures CT chest wo IV contrast Herber Ramos APRN - [employer]ARING [employer]ED WORKER [address] [place] [address] Referral ID Status Reason Start Date Expiration Date V isits Requested Visits Authorized [id number] Authorized 02/11/2024 02/10/2025 1 1 Specialty Diagnoses / Procedures Referred By Contac t Referred To Contact Radiology Diagnoses Solitary pulmonary nodule Procedures CT chest wo IV contrast Herber Ramos, PERSONAL CARE SERVICE PROVIDER - SHEARING SHED WORKER [address] [place] [address] Referral ID Status Reason Start Date Expiration Date V isits Requested Visits Authorized [id number] Pending Review 02/11/2024 02/10/2025 1 1 Additional Source Comments INFORMATION SOURCE (unrecogn ized section and content) DATE CREATED AUTHOR 05/13/2018 [facility] DATE CREATED AUTHOR AUTHOR'S ORGANIZ ATION 05/18/2018 [facility] DATE CREATED AUTHOR AUTHOR'S ORGANIZ ATION 01/09/2019 [facility] DATE CREATED AUTHOR AUTHOR'S ORGANIZ ATION 11/29/2020 [facility] DATE CREATED AUTHOR AUTHOR'S ORGANIZ ATION 09/25/2021 [facility] DATE CREATED AUTHOR AUTHOR'S ORGANIZ ATION 02/04/2022 [facility] DATE CREATED AUTHOR AUTHOR'S ORGANIZ ATION 11/23/2023 [facility] DATE CREATED AUTHOR AUTHOR'S ORGANIZ ATION 04/06/2025 [facility] DATE CREATED AUTHOR AUTHOR'S ORGANIZ ATION 05/09/2025 [facility] (unrecognized sect ion and content) No Status Records Found Reason for Visit (unrecogniz ed section and content) Reason Comments Leg Pain patient had right AK A last week and has had pain in [facility] sent for eval d/t bloodwork results Reason Comments Abdominal Pain Reason Comments Abdominal Pain Vaginal Bleeding Nausea Reason Comments Wound Check Patient sent over fo r evaluation for worsening leg infections, right lower leg is worse. he is being seen by wound care at [facility] already. Reason Comments Follow-up DM2 Reason Onset Date Comments Diabetes 02/25/2023 BGL Reason Comments Abdominal Pain Pt coming in for dif fuse abd pain x2 days. Also reports intermittent nausea but no vomiting, diarrhea, or constipation. Pt reports hx of ileus but states that at that time he was vomiting. Pt reports he has been passing gas normally today. Reason Onset Date Comments Diabetes 05/05/2023 BGL Reason Onset Date Comments Diabetes 05/17/2023 BGL Reason Onset Date Comments Diabetes 06/22/2023 BGL Specialty Diagnoses / Procedures Referred By Contac t Referred To Contact Diagnoses Chest pain Chest pain, unspecified type Procedures . Nabil Hill, [address] [place] [address] [facility] 2e Telemetry [address] [place] [address] Referral ID Status Reason Start Date Expiration Date Visits Re quested Visits Authorized [id number] 1 1 Reason Comments Chest Pain Vomiting Specialty Diagnoses / Procedures Referred By Contac t Referred To Contact Diagnoses Chest pain Chest pain, unspecified type Procedures . Nabil Hill DO [address] [place] [address] [facility] 2e Telemetry [address] [place] [address] Reason Onset Date Comments Care Coordination 07/05/2023 ED Nuance Lung Nodule Reason Comments Nausea Pt brought in by EMS from [facility] with nausea/vomiting x1 day. +MALCOLM. States that there is pending covid test. Pt c/o ABD pain / mid/upper. Denies constipation/diarrhea. Abdominal Pain Reason Onset Date Comments Care Coordination 07/05/2023 ED Nuance Lung Nodule/Resp consult for lung nodule Reason Onset Date Comments Diabetes 08/11/2023 BGL Reason Comments Abdominal Pain X 1 week Specialty Diagnoses / Procedures Referred By Contac t Referred To Contact Diagnoses Upper abdominal pain Procedures . Nabil Hill DO [address] [place] [address] [facility] Emergency Dept [address] [place] [address] Referral ID Status Reason Start Date Expiration Date Visits Re quested Visits Authorized [id number] 1 Reason Onset Date Comments Diabetes 08/30/2023 BGL Reason Onset Date Comments Diabetes 09/20/2023 BGL Specialty Diagnoses / Procedures Referred By Contac t Referred To Contact Diagnoses Hypoglycemia Procedures . Ricardo Spring MD [address] [address] [facility] [address] [place] [address] Referral ID Status Reason Start Date Expiration Date Visits Re quested Visits Authorized [id number] 1 1 Reason Comments Hypoglycemia Specialty Diagnoses / Procedures Referred By Contac t Referred To Contact Diagnoses Hypoglycemia Procedures . Ricardo Spring MD [address] [facility] [address] [place] [address] [facility] [address] [place] [address] Reason Onset Date Comments Advice Only 11/09/2023 Reason Onset Date Comments Diabetes 11/23/2023 BGL Reason Comments Flu Symptoms Specialty Diagnoses / Procedures Referred By Contac t Referred To Contact Radiology Diagnoses Nausea with vomiting, unspecified Procedures NM gastric emptying solid Elda Reaves (Kelley) [address] [facility] [place] [address] Referral ID Status Reason Start Date Expiration Date V isits Requested Visits Authorized [id number] Authorized 11/24/2023 11/23/2024 3 3 Reason Onset Date Comments Diabetes 12/28/2023 BGL Reason Comments Nausea Vomiting Pt arrived by EMS fr om [facility] due to N/V for 1 month. Upon assessment pt is A&OX$ msps intact - CP + abd pain - sob . Pt is currently - vomiting. Reason Onset Date Comments Hyperglycemia 12/13/2023 Reason Onset Date Comments Care Coordination 01/03/2024 ED Nuance Lung Nodule Reason Onset Date Comments Diabetes 01/19/2024 BGL Reason Onset Date Comments Appointment 01/20/2024 Reason Comments Abdominal Pain Vomiting Pt presents to er fr om sn[facility] for nausea and abd pain. Pt presents aox4 speaking in full and complete sentences. Pt states he has been sick since 2 weeks prior. Pt has recent urinary catheter placed due t urinary retention per pt. Catheter placed 1 week ago. Reason Onset Date Comments Diabetes 12/06/2023 BGL Reason Comments Hypoglycemia Patient reports from [facility] for low blood sugar. Facility states that it was 48. Patient was fed and EMS sugar was 76. On arrival to room BGM was 102. Reason Comments Hyperglycemia Pt is sent from [facility] for low BGT. Pt reports he has a history of gastroparesis and states he is unable to tolerate PO fluids and food. Pt also reports ongoing chronic abd pain, however denies pain upon arrival. BGT 143 upon arrival Reason Onset Date Comments Diabetes 02/22/2024 BGL Reason Comments Follow-up Reason Onset Date Comments Diabetes 07/17/2024 BGL Reason Onset Date Comments Diabetes 08/03/2024 BGL Reason Onset Date Comments Diabetes 08/08/2024 BGL Reason Onset Date Comments Diabetes 09/11/2024 BGL Reason Onset Date Comments Diabetes 09/19/2024 BGL Reason Comments Abdominal Pain Pt presents to er [facility]. Pt presents with abd pain, diarrhea, chest pain. Pt presents aox4 speaking in full and complete sentences. Chest Pain Nausea Specialty Diagnoses / Procedures Referred By Contac t Referred To Contact Diagnoses Acute cholecystitis Procedures . Grace Ackerman MD [address] [place] [address] Phone: tel: fax: [facility] PCU [address]E [address] [place] [address] Phone: tel: Referral ID Status Reason Start Date Expiration Date Visits Re quested Visits Authorized [id number] 1 1 Reason Onset Date Comments Diabetes 10/30/2024 BGL Reason Comments Follow-up OV Drain tube Reason Comments Drain Removal Patient arrived to E D c/o pulled out ANDREZ drain. Denies any pain. Reason Onset Date Comments Care Coordination 11/13/2024 ED Nuance Lung Nodule Reason Comments Follow-up U Pulled drain tube out Reason Onset Date Comments Diabetes 11/15/2024 BGL Reason Onset Date Comments Diabetes 11/21/2024 BGL Reason Comments Follow-up FU Removal Drain Tub e Reason Comments New Patient Abdominal Pain Nausea After eating Bloated Rectal Bleeding Blood in stool, refe rred by ER Specialty Diagnoses / Procedures Referred By Contact Referred To Contact Gastroenterology Diagnoses Calculus of gallbladder without cholecystitis without obstruction Procedures NM OFFICE/OUTPATIENT NEW HIGH MDM 60 MINUTES Rosy Ibarra, PERSONAL CARE SERVICE PROVIDER - SHEARING SHED WORKER [address] [place] [address] Phone: tel:[phone] fax:[phone] [facility] [address] [place] [address] Phone: tel: fax: Referral ID Status Reason Start Date Expiration Date Visits Requested Visits Authorized [id number] Pending Review Specialty Services Required 12/01/2024 12/01/2025 1 1 Reason Onset Date Comments Diabetes 12/20/2024 BGL Reason Comments Hospital Follow-up Diabetes Mellitus Hyperglycemia Reason Onset Date Comments Other 01/01/2025 Lab results/BGL Reason Onset Date Comments Diabetes 01/15/2025 BGL Reason Onset Date Comments Diabetes 01/29/2025 BGL Reason Comments New Patient Dr. Guzman/ venous insufficiency, arterial occlusion? 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) Procedures NM OFFICE/OUTPATIENT NEW MODERATE MDM 45 MINUTES Jared Guzman [address] [place] [address] Phone: tel: fax: [facility] [address] [place] [address] Phone: tel: fax: Referral ID Status Reason Start Date Expiration Date Visits Requested Visits Authorized [id number] Pending Review Eval and Treat 01/24/2025 01/24/2026 1 1 Reason Onset Date Comments Diabetes 02/07/2025 BGL Reason Onset Date Comments Results 02/08/2025 CT chest wo IV c ontrast Reason Onset Date Comments Diabetes 02/15/2025 BGL Reason Onset Date Comments Diabetes 02/27/2025 BGL Reason Comments Follow-up Diabetes Mellitus Reason Onset Date Comments Diabetes 04/17/2025 Reason Onset Date Comments Diabetes 04/30/2025 BGL Reason Onset Date Comments Diabetes 05/07/2025 BGL Ordered Prescriptions (unrec ognized section and content) Prescription Sig Dispensed Refills Start Date End Da te metoclopramide (REGLAN) 10 MG tablet Take 1 tablet by mouth 4 times daily (before meals and nightly) 120 tablet 3 11/28/2020 polyethylene glycol (GLYCOLAX) 17 g packet Take 17 g by mouth daily 527 g 1 11/29/2020 12/29/2020 metoprolol tartrate (LOPRESSOR) 25 MG tablet Take 1 tablet by mouth 2 times daily 60 tablet 3 11/28/2020 insulin regular human (HUMULIN R U-500 KWIKPEN) 500 UNIT/ML SOPN concentrated injection pen Inject 75 Units into the skin Daily with supper 1 pen 0 11/28/2020 insulin regular human (HUMULIN R U-500 KWIKPEN) 500 UNIT/ML SOPN concentrated injection pen Inject 55 Units into the skin daily (before lunch) 1 pen 0 11/28/2020 insulin regular human (HUMULIN R U-500 KWIKPEN) 500 UNIT/ML SOPN concentrated injection pen Inject 80 Units into the skin every morning (before breakfast) 1 pen 0 11/29/2020 pantoprazole (PROTONIX) 40 MG tablet Take 1 tablet by mouth every morning (before breakfast) 30 tablet 3 11/26/2020 bisacodyl (DULCOLAX) 5 MG EC tablet Take 1 tablet by mouth every 12 hours as needed for Constipation 222 tablet 5 11/25/2020 miconazole (MICOTIN) 2 % powder Apply topically 2 times daily. 45 g 1 11/25/2020 dilTIAZem (CARDIZEM CD) 180 MG extended release capsule Take 1 capsule by mouth daily 30 capsule 3 11/26/2020 megestrol (MEGACE) 40 MG tablet Take 2 tablets by mouth 2 times daily 30 tablet 3 11/25/2020 atorvastatin (LIPITOR) 10 MG tablet Take 1 tablet by mouth daily 30 tablet 3 11/26/2020 acetaminophen (TYLENOL) 325 MG tablet Take 2 tablets by mouth every 4 hours as needed for Pain 120 tablet 3 11/25/2020 metoclopramide (REGLAN) 5 MG/ML injection Infuse 2 mLs intravenously every 6 hours 240 mL 0 11/25/2020 11/28/2020 Prescription Sig Dispensed Refills Start Date End Da te ondansetron (ZOFRAN) 4 MG tablet Take 2 tablets by mouth 3 times daily as needed for Nausea or Vomiting 20 tablet 0 12/08/2020 dicyclomine (BENTYL) 10 MG capsule Take 2 capsules by mouth 4 times daily as needed (abdominal pain/cramping) 30 capsule 3 12/08/2020 sulfamethoxazole-trimet hoprim (BACTRIM DS) 800-160 MG per tablet Take 1 tablet by mouth 2 times daily for 7 days 14 tablet 0 12/08/2020 12/15/2020 Goals (unrecognized section and content) Goals may be documented in a n alternate sectionGoals may be documented in an alternate sectionGoals may be documented in an alternate sectionGoals may be documented in an alternate sectionGoals may be documented in an alternate sectionGoals may be documented in an alternate sectionGoals may be documented in an alternate sectionGoals may be documented in an alternate sectionGoals may be documented in an alternate sectionGoals may be documented in an alternate sectionGoals may be documented in an alternate sectionGoals may be documented in an alternate sectionGoals may be documented in an alternate sectionGoals may be documented in an alternate sectionGoals may be documented in an alternate sectionGoals may be documented in an alternate sectionGoals may be documented in an alternate sectionGoals may be documented in an alternate sectionGoals may be documented in an alternate sectionGoals may be documented in an alternate sectionGoals may be documented in an alternate sectionGoals may be documented in an alternate sectionGoals may be documented in an alternate sectionGoals may be documented in an alternate sectionGoals may be documented in an alternate section Care Teams (unrecognized sec tion and content) Team Status: Inactive Member Role Status Dates Jared LEON Attending Provider Active Team Status: Inactive Member Role Status Dates Jared LEON Attending Provider, Referring Provi cary Active Team Status: Active Member Role Status Dates Jared LEON Attending Provider Active Team Status: Inactive Member Role Status Dates Raj LEON, [employer] Attending Provider Active Team Status: Inactive Member Role Status Dates Jared Guzman Attending Provider Active Administration Dean Relationship Specialty Start Date End Date Karely Jared [address] [place] [address] PCP - General 04/25/19 Administration Dean Relationship Specialty Start Date End Date Jared Guzman [address] [place] [phone] PCP - General 04/25/19 Administration Dean Relationship Specialty Start Date End Date Jared Guzman [address] [place] [phone] PCP - General 04/25/19 Administration Dean Relationship Specialty Start Date End Date Jared Guzman [address] [place] [phone] PCP - General 04/25/19 Administration Dean Relationship Specialty Start Date End Date Jared Guzman [address] [place] [phone] PCP - General 04/25/19 Administration Dean Relationship Specialty Start Date End Date Jared Guzman [address] [place] [phone] PCP - General 04/25/19 Administration Dean Relationship Specialty Start Date End Date Jared Guzman [address] [place] [phone] PCP - General 04/25/19 Administration Dean Relationship Specialty Start Date End Date Jared Guzman [address] [place] [phone] PCP - General 04/25/19 Administration Dean Relationship Specialty Start Date End Date Jared Guzman [address] [place] [phone] PCP - General 04/25/19 Administration Dean Relationship Specialty Start Date End Date Jared Guzman [address] [place] [phone] PCP - General 04/25/19 Administration Dean Relationship Specialty Start Date End Date Jared Guzman [address] [place] [phone] PCP - General 04/25/19 Administration Dean Relationship Specialty Start Date End Date Jared Guzman [address] [place] [phone] PCP - General 04/25/19 Administration Dean Relationship Specialty Start Date End Date Jared Guzman [address] [place] [phone] PCP - General 04/25/19 Administration Dean Relationship Specialty Start Date End Date Jared Guzman [address] [place] [phone] PCP - General 04/25/19 Administration Dean Relationship Specialty Start Date End Date Jared Guzman [address] [place] [phone] PCP - General 04/25/19 Administration Dean Relationship Specialty Start Date End Date Jared Guzman [address] [place] [phone] PCP - General 04/25/19 Administration Dean Relationship Specialty Start Date End Date Jared Guzman [address] [place] [phone] PCP - General 04/25/19 Administration Dean Relationship Specialty Start Date End Date Jared Guzman [address] [place] [address] PCP - General 04/25/19 Administration Dean Relationship Specialty Start Date End Date Jared Guzman [address] [place] [phone] PCP - General 04/25/19 Administration Dean Relationship Specialty Start Date End Date Jared Guzman [address] [place] [address] PCP - General 04/25/19 Administration Dean Relationship Specialty Start Date End Date Jared Guzman [address] [place] [address] PCP - General 04/25/19 Administration Dean Relationship Specialty Start Date End Date Jared Guzman [address] [place] [address] PCP - General 04/25/19 Administration Dean Relationship Specialty Start Date End Date Jared Guzman [address] [place] [address] PCP - General 04/25/19 Administration Dean Relationship Specialty Start Date End Date Jared Guzman [address] [place] [address] PCP - General 04/25/19 Administration Dean Relationship Specialty Start Date End Date Jared Guzman [address] [place] [address] PCP - General 04/25/19 Administration Dean Relationship Specialty Start Date End Date Jared Guzman [address] [place] [address] PCP - General 04/25/19 Administration Dean Relationship Specialty Start Date End Date Jared Guzman [address] [place] [address] PCP - General 04/25/19 Administration Dean Relationship Specialty Start Date End Date Jared Guzman [address] [place] [address] PCP - General 04/25/19 Administration Dean Relationship Specialty Start Date End Date Jared Guzman [address] [place] [phone] PCP - General 04/25/19 Administration Dean Relationship Specialty Start Date End Date Jared Guzman [address] [place] [phone] PCP - General 04/25/19 Administration Dean Relationship Specialty Start Date End Date Jared Guzman [address] [place] [phone] PCP - General 04/25/19 Administration Dean Relationship Specialty Start Date End Date Jared Guzman [address] [place] [phone] PCP - General 04/25/19 Administration Dean Relationship Specialty Start Date End Date Jared Guzman [address] [place] [phone] PCP - General 04/25/19 Administration Dean Relationship Specialty Start Date End Date Jared Guzman [address] [place] [phone] PCP - General 04/25/19 Administration Dean Relationship Specialty Start Date End Date Jared Guzman [address] [place] [phone] PCP - General 04/25/19 Administration Dean Relationship Specialty Start Date End Date Jared Guzman [address] [place] [phone] PCP - General 04/25/19 Administration Dean Relationship Specialty Start Date End Date Jared Guzman [address] [place] [phone] PCP - General 04/25/19 Administration Dean Relationship Specialty Start Date End Date Jared Guzman [address] [place] [phone] PCP - General 04/25/19 Administration Dean Relationship Specialty Start Date End Date Jared Guzman [address] [place] [phone] PCP - General 04/25/19 Administration Dean Relationship Specialty Start Date End Date Jared Guzman [address] [place] [phone] PCP - General 04/25/19 Administration Dean Relationship Specialty Start Date End Date Jared Guzman [address] [place] [address] PCP - General 04/25/19 Administration Dean Relationship Specialty Start Date End Date Jared Guzman [address] [place] [address] PCP - General 04/25/19 Administration Dean Relationship Specialty Start Date End Date Jared Guzman [address] [place] [address] PCP - General 04/25/19 Administration Dean Relationship Specialty Start Date End Date Jared Guzman [address] [place] [address] PCP - General 04/25/19 [facility] Other Attendant 01/30/25 Administration Dean Relationship Specialty Start Date End Date Jared Guzman [address] [place] [address] PCP - General 04/25/19 Alejandro Mandel APRN - CNP [address] [place] [phone] Nurse Practitioner Nurse Practitioner 02/01/25 [facility] Other Attendant 01/30/25 Team Status: Inactive Member Role Status Dates Jared LEON Attending Provider Active Sta rt: September 22, 2024 End: September 22, 2024 Team Status: Inactive Member Role Status Dates Jared LEON Attending Provider Active Sta rt: October 30, 2024 End: October 30, 2024 Team Status: Inactive Member Role Status Dates Jared LEON Attending Provider Active Sta rt: November 10, 2024 End: November 10, 2024 Jared LEON Referring Provider Active Sta rt: November 10, 2024 End: November 10, 2024 Team Status: Active Member Role Status Dates Jared LEON Attending Provider Active Sta rt: November 30, 2024 Team Status: Active Member Role Status Dates Jared LEON Attending Provider Active Sta rt: December 05, 2024 Jared LEON Referring Provider Active Sta rt: December 05, 2024 Team Status: Inactive Member Role Status Dates Jared LEON Attending Provider Active Sta rt: December 27, 2024 End: December 27, 2024 Team Status: Inactive Member Role Status Dates Jared LEON Attending Provider Active Sta rt: December 05, 2024 End: December 05, 2024 Jared LEON Referring Provider Active Sta rt: December 05, 2024 End: December 05, 2024 Administration Dean Relationship Specialty Start Date End Date Jared Guzman [address] [place] [phone] PCP - General 04/25/19 Alejandro Mandel APRN - KRANTHI [address] [place] [address] Nurse Practitioner Nurse Practitioner 02/01/25 [facility] Other Attendant 01/30/25 Administration Dean Relationship Specialty Start Date End Date Jared Guzman [address] [place] [phone] PCP - General 04/25/19 lAejandro Mandel APRN - CNP [address] [address] Nurse Practitioner Nurse Practitioner 02/01/25 [facility] Other Attendant 01/30/25 Administration Dean Relationship Specialty Start Date End Date Jared Guzman [address] [place] [address] PCP - General 04/25/19 Alejandro Mandel APRN - CNP [address] [place] [address] Nurse Practitioner Nurse Practitioner 02/01/25 [facility] Other Attendant 01/30/25 Team Status: Inactive Member Role Status Dates Jared LEON Attending Provider Active Sta rt: February 07, 2025 End: February 07, 2025 Team Status: Active Member Role Status Dates Jared LOEN Attending Provider Active Sta rt: February 26, 2025 Administration Dean Relationship Specialty Start Date End Date Jared Guzman [address] [place] [address] PCP - General 04/25/19 Alejandro Mandel APRN - CNP [address] [place] [phone] Nurse Practitioner Nurse Practitioner 02/01/25 [facility] Other Attendant 01/30/25 Team Status: Inactive Member Role Status Dates Jared LEON Attending Provider Active Sta rt: February 26, 2025 End: February 26, 2025 Jared LEON Referring Provider Active Sta rt: February 26, 2025 End: February 26, 2025 Administration Dean Relationship Specialty Start Date End Date Jared Guzman [address] [place] [address] PCP - General 04/25/19 Alejandro Mandel APRN - CNP [address] [place] [address] Nurse Practitioner Nurse Practitioner 02/01/25 [facility] Other Attendant 01/30/25 Administration Dean Relationship Specialty Start Date End Date Jared Guzman [address] [facility] [address] [place] [phone] PCP - General 04/25/19 Alejandro Mandel APRN - SHEARING [employer]ED WORKER [address] [place] [address] Nurse Practitioner Nurse Practitioner 02/01/25 [facility] Other Attendant 01/30/25 Scheduled Active and Recently Administ ered Medications (unrecognized section and content) Medication Order 03/06/2023 03/07/2023 03/08/2023 metoclopramide (Reglan) injection 10 mg (COMPLETED) 10 mg, IntraVENous, Once, On Wed03/08/23 at 1340, For 1 dose 1553 (Given - Provid er: Marimar Brown RN) Scheduled Medication Order 06/29/2023 06/30/2023 07/01/2023 acidophilus lactobacillus 1 capsule 1 capsule, Oral, 2 times daily, First dose on Wed06/28/23 at 0900 0719 (Not Given - Provider: Suzanne Sen RN - Reason: NPO)2019 (Given - Provider: Margo Alexis RN) 0900 (Given - Provider: Suzanne Sen RN)2100 (Given - Provider: Shaneka Robertson, GLYNN) 0900 (Given - Provider: David Lui, GLYNN) ARIPiprazole (Abilify) tablet 10 mg 10 mg, Oral, Daily, First dose on Wed06/28/23 at 0900 0720 (Not Given - Provider: Suzanne Sen RN - Reason: NPO) 0900 (Given - Provider: Suzanne Sen RN) 0846 (Given - Provider: David Lui RN) aspirin EC tablet 81 mg 81 mg, Oral, Daily, First dose on Wed06/28/23 at 0900, Do not crush, chew, or split. 0720 (Not Given - Provider: Suzanne Sen RN - Reason: NPO) 0900 (Given - Provider: Suzanne Sen RN) 0846 (Given - Provider: David Lui RN) atorvastatin (Lipitor) tablet 10 mg 10 mg, Oral, Daily, First dose on Wed06/28/23 at 0900 0720 (Not Given - Provider: Suzanne Sen RN - Reason: NPO) 0900 (Given - Provider: Suzanne Sen RN) 0846 (Given - Provider: David Lui RN) cetirizine (ZyrTEC) tablet 10 mg 10 mg, Oral, Daily, First dose on Wed06/28/23 at 0900 0721 (Not Given - Provider: Suzanne Sen RN - Reason: NPO) 09 (Given - Provider: Suzanne Sen RN) 0846 (Given - Provider: David Lui RN) dilTIAZem CD (Cardizem CD) 24 hr capsule 180 mg 180 mg, Oral, Daily, First dose on Wed06/28/23 at 0900, Do not crush, chew, or split. 0722 (Not Given - Provider: Suzanne Sen RN - Reason: NPO) 09 (Given - Provider: Suzanne Sen RN) 0846 (Given - Provider: David Lui RN) enoxaparin (Lovenox) syringe 40 mg 40 mg, SubCUTAneous, Every 24 hours scheduled (Daily), First dose on Wed06/28/23 at 0900, Indication of Use: Prophylaxis-DVT/PE, Indications: Prophylaxis of Venous Thromboembolism 07 (Not Given - Provider: Suzanne Sen RN - Reason: Other) 0854 (Given - Provider: Suzanne Sen RN) 0846 (Given - Provider: David Lui RN) FLUoxetine (PROzac) capsule 40 mg 40 mg, Oral, Daily, First dose on Wed06/28/23 at 0900 0723 (Not Given - Provider: Suzanne Sen RN - Reason: NPO) 0859 (Given - Provider: Suzanne Sen RN) 0846 (Given - Provider: David Lui, GLYNN) gabapentin (Neurontin) capsule 100 mg 100 mg, Oral, 2 times daily, First dose on Wed06/28/23 at 0900 0724 (Not Given - Provider: Suzanne Sen RN - Reason: NPO)2017 (Given - Provider: Margo Alexis RN) 0900 (Given - Provider: Suzanne Sen RN)2129 (Given - Provider: Shaneka Robertson RN) 0846 (Given - Provider: David Lui, GLYNN) Insulin Lispro (Humalog) injection 0-18 Units (CANCELED) 0-18 Units, SubCUTAneous, 3 times daily with meals, First dose on Wed06/28/23 at 1200, High Dose Correction Algorithm Glucose: Dose: LESS than 139 No Insulin 140-199 3 Unit 200-249 6 Units 250-299 9 Units 300-349 12 Units 350-400 15 Units Above 400 18 Units 0800 (Not Given - Provider: Suzanne Sen RN - Reason: NPO)1200 (Not Given - Provider: Suzanne Sen RN - Reason: NPO)1547 (Given - Provider: Suzanne Sen RN) 0854 (Given - Provider: Suzanne Sen RN)1208 (Given - Provider: Suzanne Sen RN) Insulin Lispro (Humalog) injection 30 Units (COMPLETED) 30 Units, SubCUTAneous, Once, On Wed06/30/23 at 1730, For 1 dose 1727 (Given - Provider: Suzanne Sen RN) Insulin Lispro (Humalog) injection 45 Units (CANCELED) 45 Units, SubCUTAneous, 3 times daily with meals, First dose on Wed06/28/23 at 1200 0800 (Not Given - Provider: Suzanne Sen RN - Reason: NPO)1200 (Not Given - Provider: Suzanne Sen RN - Reason: NPO)1547 (Given - Provider: Suzanne Sen RN) 0855 (Given - Provider: Suzanne Sen RN)1208 (Given - Provider: Suzanne Sen RN) insulin NPH (Isophane) (HumuLIN N,NovoLIN N) injection 40 Units (COMPLETED) 40 Units, SubCUTAneous, Once, On Wed06/29/23 at 1600, For 1 dose 1554 (Given - Provider: Suzanne Sen RN) insulin NPH (Isophane) (HumuLIN N,NovoLIN N) injection 50 Units 50 Units, SubCUTAneous, Nightly, First dose on Wed06/30/23 at 2100 2130 (Given - Provider: Shaneka Robertson RN) insulin NPH (Isophane) (HumuLIN N,NovoLIN N) injection 85 Units (CANCELED) 85 Units, SubCUTAneous, Every morning, First dose on Wed06/28/23 at 1130 0715 (Not Given - Provider: Suzanne Sen RN - Reason: NPO) 0857 (Given - Provider: Suzanne Sen RN) insulin NPH (Isophane) (HumuLIN N,NovoLIN N) injection 85 Units (CANCELED) 85 Units, SubCUTAneous, Nightly, First dose on Wed06/28/23 at 2100 2029 (Given - Provider: Margo Alexis RN) insulin regular (HumuLIN R U-500) CONCENTRATED injection 100 Units 100 Units, SubCUTAneous, 3 times daily with meals, First dose on Wed06/30/23 at 1700, Administer using a U-500 syringe. MED IN FRIG Note High CONCENTRATION: 500 units/mL, Did you verify the patient is taking U-500 insulin? With whom? Yes, Patient, How does the patient measure their dose of U-500 insulin at home? Insulin pen 1700 (Not Given - Provider: Suzanne Sen RN - Reason: Patient/family refused - Comment: gluc 131. dr lee notified) 1131 (Given - Provider: David Lui RN)1326 (Given - Provider: David Lui RN) lisinopril tablet 40 mg 40 mg, Oral, Every 24 hours, First dose on Wed06/28/23 at 0900 0717 (Not Given - Provider: Suzanne Sen RN - Reason: NPO) 0859 (Given - Provider: Suzanne Sen RN) 0846 (Given - Provider: David Lui, GLYNN) megestrol (Megace) tablet 20 mg 20 mg, Oral, 2 times daily, First dose on Wed06/28/23 at 0900, HAZARDOUS - Handle with care 0716 (Not Given - Provider: Suzanne Sen RN - Reason: NPO)2018 (Given - Provider: Margo Alexis RN) 0915 (Given - Provider: Suzanne Sen RN)2143 (Given - Provider: Shaneka Robertson RN) 0852 (Given - Provider: David Lui, GLYNN) metoclopramide (Reglan) tablet 10 mg 10 mg, Oral, 4 times daily, First dose on Wed06/28/23 at 0900 0717 (Not Given - Provider: Suzanne Sen RN - Reason: NPO)1101 (Not Given - Provider: Suzanne Sen RN - Reason: NPO)1546 (Given - Provider: Suzanne Sen RN)2017 (Given - Provider: Margo Alexis RN) 09 (Given - Provider: Suzanne Sen RN)1300 (Not Given - Provider: Suzanne Sen RN - Reason: Other)1708 (Given - Provider: Suzanne Sen RN)2130 (Given - Provider: Shaneka Robertson RN) 0846 (Given - Provider: David Lui RN)1300 (Canceled Entry - Provider: Automatic Discharge Provider - Comment: Automatically canceled at discontinue of medication order) metoprolol tartrate (Lopressor) tablet 25 mg 25 mg, Oral, 2 times daily, First dose on Wed06/28/23 at 0900 0718 (Not Given - Provider: Suzanne Sen RN - Reason: NPO)2017 (Given - Provider: Margo Alexis RN) 0900 (Given - Provider: Suzanne Sen RN)2130 (Given - Provider: Shaneka Robertson RN) 0846 (Given - Provider: David Lui RN) miconazole (Micotin) 2 % powder Topical, 2 times daily, First dose on Wed06/28/23 at 0900 0718 (Not Given - Provider: Suzanne Sen RN - Reason: Other)2032 (Given - Provider: Margo Alexis RN) 0916 (Given - Provider: Suzanne Sen RN)2144 (Given - Provider: Shaneka Robertson, RN) 0900 (Given - Provider: David Lui, RN) pantoprazole (ProtoNix) EC tablet 40 mg 40 mg, Oral, Daily before breakfast, First dose on Wed06/28/23 at 0900, Do not crush, chew, or split. 0700 (Not Given - Provider: Jackson Lopez RN - Reason: NPO) 0510 (Given - Provider: Margo Alexis RN) 0628 (Given - Provider: Shaneka Robertson, GLYNN) polyethylene glycol (PEG) 3350 (Miralax) packet 17 g 17 g, Oral, Daily, First dose on Wed06/28/23 at 0900 0724 (Not Given - Provider: Suzanne Sen RN - Reason: NPO) 0859 (Given - Provider: Suzanne Sen RN) 0846 (Given - Provider: David Lui, GLYNN) potassium chloride (Klor-Con) packet 20 mEq 20 mEq, Oral, Every 24 hours, First dose on Wed06/28/23 at 0900, Best given with food and a glass of water to minimize gastric irritation. Dissolve each packet in 4 ounces of water = 5 mEq per 1 oz fluid. 0724 (Not Given - Provider: Suzanne Sen RN - Reason: NPO) 0859 (Given - Provider: Suzanne Sen RN) 0846 (Given - Provider: David Lui, RN) Continuous Medication Order 06/29/2023 06/30/2023 07/01/2023 sodium chloride 0.9 % infusion 75 mL/hr, IntraVENous, Continuous, Starting on Wed06/28/23 at 0915 2324 (Rate/Dose Verify - Provider: Margo Alexis RN)2325 (Rate/Dose Verify - Provider: Margo Alexis RN) 0156 (Rate/Dose Verify - Provider: Margo Alexis RN)0403 (Rate/Dose Verify - Provider: Margo Alexis, GLYNN)0511 (New Bag - Provider: Margo Alexis, RN)2137 (New Bag - Provider: Shaneka Robertson RN) PRN Medication Order 06/29/2023 06/30/2023 07/01/2023 acetaminophen (Tylenol) suppository 650 mg(Linked Group 1) 650 mg, Rectal, Every 6 hours PRN, mild pain (1-3), fever, For temp greater than 100.4 F (38 C), Starting on Wed06/28/23 at 0846, Administer if oral route cannot be used. Maximum dose of acetaminophen is 4000 mg from all sources in 24 hours. 09 (See Alternative - Provider: Suzanne Sen RN) acetaminophen (Tylenol) tablet 650 mg(Linked Group 1) 650 mg, Oral, Every 6 hours PRN, mild pain (1-3), fever, For temp greater than 100.4 F (38 C), Starting on Wed06/28/23 at 0846, Maximum dose of acetaminophen is 4000 mg from all sources in 24 hours. 09 (Given - Provider: Suzanne Sen RN) dextrose 5 % infusion 100 mL/hr, IntraVENous, PRN, Blood sugar less than 70mg/dL, Starting on Wed06/28/23 at 0848, Start infusion following administration of dextrose 50% or glucagon. dextrose 50 % solution 12.5 g 12.5 g, IntraVENous, PRN, low blood sugar, Blood glucose less than 70 mg/dL and patient NOT ALERT or NPO., Starting on Wed06/28/23 at 0848, If patient does not respond within 5 minutes, repeat dose x1. Start D5W at 100 mL/hour until ordering provider can be reached. Repeat blood glucose in 15 minutes. If blood glucose is less than 70 mg/dL, repeat treatment and recheck blood glucose in 15 minutes x2. If using Glucostabilizer, dose as instructed per system. glucagon (human recombinant) injection 1 mg 1 mg, IntraMUSCular, PRN, low blood sugar, Blood glucose less than 70 mg/dL and patient NOT ALERT or NPO and does not have IV access., Starting on Wed06/28/23 at 0848, After administration, attempt intravenous access and start D5W at 100 mL/hr. Repeat blood glucose in 15 minutes x2 and notify provider. glucose oral gel 15 g 15 g, Oral, As needed, low blood sugar, Starting on Wed06/28/23 at 0848, If blood glucose less than 50 mg/dL and patient ALERT and NOT NPO, give 2 tubes glucose gel. If blood glucose less than 70 mg/dL and patient ALERT and NOT NPO, give 1 tube glucose gel. Repeat blood glucose in 15 minutes. If blood glucose is less than 70 mg/dL, repeat treatment and recheck blood glucose in 15 minutes x2 and notify provider. nitroglycerin (Nitrostat) SL tablet 0.4 mg 0.4 mg, SubLINGual, Every 5 min PRN, chest pain, Starting on Wed06/28/23 at 0847, Give every 5 minutes as needed for chest pain to a maximum of 3 doses. Notify MD and obtain EKG if no relief after 3 doses or chest pain recurs. HOLD and notify MD if SBP less than 90 mmHg. Do not give if nitroglycerin infusion running concurrently. Do not give within 24 hours of sildenafil citrate (Viagra) or vardenafil (Levitra) use, or within 48 hours of tadalafil (Cialis) use. ondansetron (Zofran) injection 4 mg 4 mg, IntraVENous, Every 6 hours PRN, nausea, vomiting, Starting on Wed06/28/23 at 0846, Administer if oral route cannot be used. 2018 (See Alternative - Provider: Margo Alexis RN) ondansetron ODT (Zofran-ODT) disintegrating tablet 4 mg (CANCELED) 4 mg, Oral, Every 8 hours PRN, nausea, vomiting, Starting on Wed06/28/23 at 0846, Patient should allow tablet to dissolve on tongue. Do not remove from blister pack until just before administering. 2018 (Given - Provider: Margo Alexis, GLYNN) polyethylene glycol (PEG) 3350 (Miralax) packet 17 g 17 g, Oral, Daily PRN, constipation, Starting on Wed06/28/23 at 0846, 1st line for treatment of constipation - give scheduled if no bowel movement in past 24 hours. prochlorperazine (Compazine) injection 10 mg 10 mg, IntraVENous, Every 6 hours PRN, nausea, vomiting, Starting on Wed06/29/23 at 2206, Give if unable to tolerate po. 2216 (Given - Provider: Margo Alexis RN) 0510 (Given - Provider: Margo Alexis RN) Linked Groups Order Group 1: acetaminophen (Tylenol) tablet 650 mgJump to med 650 mg, Oral, Every 6 hours PRN, mild pain (1-3), fever, For temp greater than 100.4 F (38 C), Starting on Wed06/28/23 at 0846
Maximum dose of acetaminophen is 4000 mg from all sources in 24 hours.
Or acetaminophen (Tylenol) suppository 650 mgJump to med 650 mg, Rectal, Every 6 hours PRN, mild pain (1-3), fever, For temp greater than 100.4 F (38 C), Starting on Wed06/28/23 at 0846
Administer if oral route cannot be used. Maximum dose of acetaminophen is 4000 mg from all sources in 24 hours.
Scheduled Medication Order 08/06/2023 08/07/2023 08/08/2023 cefTRIAXone (Rocephin) 1,000 mg in sodium chloride 0.9 % 50 mL IVPB Mini-Bag Plus (COMPLETED) 1,000 mg, IntraVENous, at 100 mL/hr, Administer over 30 Minutes, Once, On 08/08/23 at 1150, For 1 dose, Mini-Bag Plus bag, Suspected Indication (Select all that apply): Urinary Tract Infection 1154 (New Bag - Prov ider: Varsha Diez RN)1225 (Stopped - Provider: Varsha Diez RN) ketorolac (Toradol) injection 15 mg (COMPLETED) 15 mg, IntraVENous, Once, On 08/08/23 at 0850, For 1 dose 0902 (Given - Provid er: Karlos Garcia RN) morphine injection 8 mg (COMPLETED) 8 mg, IntraVENous, Once, On 08/08/23 at 0645, For 1 dose, If oral and IV narcotics ordered, use oral first and only use IV if oral is ineffective or cannot take oral. Do Not give oral and IV within 1 hour of each other unless specifically ordered. 0652 (Given - Provid er: Tanya Contreras RN) ondansetron (Zofran) injection 4 mg (COMPLETED) 4 mg, IntraVENous, Once, On Wed08/08/23 at 0645, For 1 dose 0652 (Given - Provid er: Tanya Contreras RN) sodium chloride 0.9 % bolus 1,000 mL (COMPLETED) 1,000 mL, IntraVENous, at 1,000 mL/hr, Administer over 1 Hours, Once, On Wed08/08/23 at 0645, For 1 dose 0653 (New Bag - Prov ider: Tanya Contreras RN)0753 (Stopped - Provider: Karlos Garcia, GLYNN) sodium chloride 0.9 % bolus 1,000 mL (COMPLETED) 1,000 mL, IntraVENous, at 1,000 mL/hr, Administer over 1 Hours, Once, On Wed08/08/23 at 0850, For 1 dose 0850 (New Bag - Prov ider: Karlos Garcia RN)0950 (Stopped - Provider: Varsha Diez RN) PRN Medication Order 08/06/2023 08/07/2023 08/08/2023 iopamidol (Isovue-370) 76 % injection 100 mL (COMPLETED) 100 mL, IntraVENous, IMG once PRN, contrast, Starting on Wed08/08/23 at 0819, For 1 dose 0819 (Given - Provid er: TRICIA Mathis) Scheduled Medication Order 08/17/2023 08/18/2023 08/19/2023 acidophilus lactobacillus 1 capsule 1 capsule, Oral, 2 times daily, First dose on Wed08/18/23 at 0600, Substituted for available formulary product 0617 (Given - Provider: Anne Krueger RN)1500 (Not Given - Provider: Bucky Killian RN - Reason: Medication not available) 0612 (Given - Provider: Ioana Barahona LPN)1500 (Not Given - Provider: Kota Luque RN - Reason: Other) ARIPiprazole (Abilify) tablet 10 mg 10 mg, Oral, Daily, First dose on Wed08/18/23 at 0900 0828 (Given - Provider: Olimpia Mustafa RN) 0940 (Given - Provider: Kota Luque RN) aspirin EC tablet 81 mg 81 mg, Oral, Daily, First dose on Wed08/18/23 at 0900, Do not crush, chew, or split. 0828 (Given - Provider: Olimpia Mustafa RN) 0940 (Given - Provider: Kota Luque, GLYNN) atorvastatin (Lipitor) tablet 10 mg 10 mg, Oral, Daily, First dose on Wed08/18/23 at 0900 0828 (Given - Provider: Olimpia Mustafa RN) 0940 (Given - Provider: Kota Luque, GLYNN) cefTRIAXone (Rocephin) 1,000 mg in sodium chloride 0.9 % 50 mL IVPB Mini-Bag Plus (COMPLETED) 1,000 mg, IntraVENous, at 100 mL/hr, Administer over 30 Minutes, Once, On Wed08/17/23 at 2020, For 1 dose, Mini-Bag Plus bag, Suspected Indication (Select all that apply): Urinary Tract Infection 2143 (New Bag - Provider: Anne Krueger RN)2213 (Stopped - Provider: Anne Krueger RN) clotrimazole (Lotrimin) 1 % cream Topical, 2 times daily, First dose on Wed08/18/23 at 0955, Apply to L foot and between toes 1-2x/day 0955 (Canceled Entry - Provider: Automatic Discharge Provider - Comment: Automatically canceled at discontinue of medication order)2126 (Given - Provider: Ioana Barahona LPN) 0947 (Given - Provider: Kota Luque RN)2100 (Canceled Entry - Provider: Automatic Discharge Provider - Comment: Automatically canceled at discontinue of medication order) dextrose 50 % solution 50 mL (COMPLETED) 50 mL, IntraVENous, Once, On Wed08/17/23 at 1755, For 1 dose 1758 (Given - Provider: Hebert Hill, GLYNN) dilTIAZem CD (Cardizem CD) 24 hr capsule 180 mg 180 mg, Oral, Daily, First dose on Wed08/18/23 at 0900, Do not crush, chew, or split. 0828 (Given - Provider: Olimpia Mustafa RN) 0940 (Given - Provider: Kota Luque RN) enoxaparin (Lovenox) syringe 30 mg 30 mg, SubCUTAneous, Every 12 hours scheduled (2 times per day), First dose on Wed08/17/23 at 2250, Indication of Use: Prophylaxis-DVT/PE 2329 (Given - Provider: Kaci Figueroa RN) 1201 (Given - Provider: Flor Alonso RN)2001 (Given - Provider: Ioana Barahona LPN) 0940 (Given - Provider: Kota Luque RN)2100 (Canceled Entry - Provider: Automatic Discharge Provider - Comment: Automatically canceled at discontinue of medication order) fluconazole (Diflucan) tablet 200 mg 200 mg, Oral, Daily, First dose on Wed08/18/23 at 0955, For 14 days, Coverage: Homa albicans, Infection Site: Vaginal, Skin 1159 (Given - Provider: Flor Alonso RN) 0940 (Given - Provider: Kota Luque RN) FLUoxetine (PROzac) capsule 40 mg 40 mg, Oral, Daily, First dose on Wed08/18/23 at 0900 0828 (Given - Provider: Olimpia Mustafa RN) 0940 (Given - Provider: Kota Luque RN) gabapentin (Neurontin) capsule 100 mg 100 mg, Oral, 2 times daily, First dose on Wed08/17/23 at 2250 2330 (Given - Provider: Kaci Figueroa RN) 0828 (Given - Provider: Olimpia Mustafa RN)1957 (Given - Provider: Ioana Barahona LPN) 0940 (Given - Provider: Kota Luque RN)2100 (Canceled Entry - Provider: Automatic Discharge Provider - Comment: Automatically canceled at discontinue of medication order) influenza vac subunit quadrivalent (Flucelvax) injection 0.5 mL 0.5 mL, IntraMUSCular, Prior to discharge, Starting on Wed08/18/23 at 0900, For 1 dose Insulin Lispro (Humalog) injection 0-12 Units 0-12 Units, SubCUTAneous, 3 times daily with meals, First dose on Wed08/18/23 at 1230, Moderate dose Sliding scale: <150 = 0 unit 151-200 = 2 units 201-250 = 4 units 251-300 = 6 units 301-350 = 8 units 351-400 = 10 units > 400 = 12 units and call endocrine 1242 (Given - Provider: Flor Alonso, RN)1630 (Given - Provider: Bucky Killian RN) 0940 (Given - Provider: Kota Luque RN)1225 (Given - Provider: Kota Luque RN)1641 (Given - Provider: Kota Luque RN) Insulin Lispro (Humalog) injection 15 Units (COMPLETED) 15 Units, SubCUTAneous, Once, On Wed08/18/23 at 0505, For 1 dose 0537 (Given - Provider: Anne Krueger RN) insulin regular (HumuLIN R U-500) CONCENTRATED injection 100 Units (CANCELED) 100 Units, SubCUTAneous, 3 times daily, First dose (after last modification) on Wed08/18/23 at 1240, Note High CONCENTRATION: 500 units/mL, Did you verify the patient is taking U-500 insulin? With whom? Yes, Patient, How does the patient measure their dose of U-500 insulin at home? U-500 insulin syringe 1258 (Given - Provider: Flor Alonso RN)2148 (Given - Provider: Ioana Barahona LPN) 0948 (Given - Provider: Kota Luque RN)1228 (Given - Provider: Kota Luque RN) insulin regular (HumuLIN R U-500) CONCENTRATED injection 150 Units 150 Units, SubCUTAneous, 3 times daily, First dose (after last modification) on Wed08/19/23 at 2100, Note High CONCENTRATION: 500 units/mL, Did you verify the patient is taking U-500 insulin? With whom? Yes, Patient, How does the patient measure their dose of U-500 insulin at home? U-500 insulin syringe 2100 (Canceled Entry - Provider: Automatic Discharge Provider - Comment: Automatically canceled at discontinue of medication order) ketorolac (Toradol) injection 15 mg (COMPLETED) 15 mg, IntraVENous, Once, On Wed08/17/23 at 1255, For 1 dose 1342 (Given - Provider: Hebert Hill, GLYNN) lisinopril tablet 40 mg 40 mg, Oral, Daily, First dose on Wed08/18/23 at 0900 0828 (Given - Provider: Olimpia Mustafa RN) 0940 (Given - Provider: Kota Luque RN) megestrol (Megace) tablet 20 mg 20 mg, Oral, 2 times daily, First dose on Wed08/18/23 at 0900, HAZARDOUS - Handle with care 0841 (Given - Provider: Olimpia Mustafa RN)2122 (Given - Provider: Ioana Barahona LPN) 0947 (Given - Provider: Kota Luque RN)2100 (Canceled Entry - Provider: Automatic Discharge Provider - Comment: Automatically canceled at discontinue of medication order) metoclopramide (Reglan) injection 10 mg (COMPLETED) 10 mg, IntraVENous, Once, On Wed08/17/23 at 1255, For 1 dose 1342 (Given - Provider: Hebert Hill RN) metoclopramide (Reglan) tablet 10 mg 10 mg, Oral, 4 times daily, First dose on Wed08/17/23 at 2250 2329 (Given - Provider: Kaci Figueroa RN) 0828 (Given - Provider: Olimpia Mustafa RN)1300 (Not Given - Provider: Bucky Killian RN - Reason: Other - Comment: was not on the floor)1629 (Given - Provider: Bucky Killian RN)1957 (Given - Provider: Ioana Barahona LPN) 0940 (Given - Provider: Kota Luque RN)1225 (Given - Provider: Kota Luque RN)1641 (Given - Provider: Kota Luque RN)2100 (Canceled Entry - Provider: Automatic Discharge Provider - Comment: Automatically canceled at discontinue of medication order) metoprolol tartrate (Lopressor) tablet 25 mg 25 mg, Oral, 2 times daily, First dose on Wed08/17/23 at 2250 2329 (Given - Provider: Kaci Figueroa RN) 0828 (Given - Provider: Olimpia Mustafa RN)195 (Given - Provider: Ioana Barahona LPN) 0940 (Given - Provider: Kota Luque RN)2100 (Canceled Entry - Provider: Automatic Discharge Provider - Comment: Automatically canceled at discontinue of medication order) pantoprazole (ProtoNix) EC tablet 40 mg 40 mg, Oral, Daily before breakfast, First dose on Wed08/18/23 at 0700, Do not crush, chew, or split. 0620 (Given - Provider: Anne Krueger RN) 0612 (Given - Provider: Ioana Barahona LPN) polyethylene glycol (PEG) 3350 (Miralax) packet 17 g 17 g, Oral, Daily, First dose on Wed08/18/23 at 0900 0900 (Given - Provider: Olimpia Mustafa, RN) 0940 (Given - Provider: Kota Luque, GLYNN) potassium chloride CR (Klor-Con M20) ER tablet 20 mEq 20 mEq, Oral, Every 24 hours, First dose on Wed08/17/23 at 2250, Best given with food and a glass of water to minimize gastric irritation. Do not crush or chew. 2330 (Given - Provider: Kaci Figueroa RN) 1956 (Given - Provider: Ioana Barahona LPN) 2250 (Canceled Entry - Provider: Automatic Discharge Provider - Comment: Automatically canceled at discontinue of medication order) sodium chloride 0.9 % bolus 500 mL (COMPLETED) 500 mL, IntraVENous, at 500 mL/hr, Administer over 1 Hours, Once, On Wed08/17/23 at 1255, For 1 dose 1342 (New Bag - Provider: Hebert Hill, GLYNN)1521 (Stopped - Provider: Hebert Hill, GLYNN) PRN Medication Order 08/17/2023 08/18/2023 08/19/2023 acetaminophen (Tylenol) suppository 650 mg(Linked Group 1) 650 mg, Rectal, Every 6 hours PRN, mild pain (1-3), fever, For temp greater than 100.4 F (38 C), Starting on Wed08/17/23 at 2249, Administer if oral route cannot be used. Maximum dose of acetaminophen is 4000 mg from all sources in 24 hours. 1956 (See Alternative - Provider: Ioana Barahona LPN) acetaminophen (Tylenol) tablet 650 mg(Linked Group 1) 650 mg, Oral, Every 6 hours PRN, mild pain (1-3), fever, For temp greater than 100.4 F (38 C), Starting on Wed08/17/23 at 2249, Maximum dose of acetaminophen is 4000 mg from all sources in 24 hours. 1956 (Given - Provider: Ioana Barahona LPN) dextrose 5 % infusion 100 mL/hr, IntraVENous, PRN, Blood sugar less than 70mg/dL, Starting on Wed08/17/23 at 1751, Start infusion following administration of dextrose 50% or glucagon. dextrose 50 % solution 12.5 g 12.5 g, IntraVENous, PRN, low blood sugar, Blood glucose less than 70 mg/dL and patient NOT ALERT or NPO., Starting on Wed08/17/23 at 1751, If patient does not respond within 5 minutes, repeat dose x1. Start D5W at 100 mL/hour until ordering provider can be reached. Repeat blood glucose in 15 minutes. If blood glucose is less than 70 mg/dL, repeat treatment and recheck blood glucose in 15 minutes x2. If using Glucostabilizer, dose as instructed per system. 1808 (Given - Provider: Hebert Hill RN) glucagon (human recombinant) injection 1 mg 1 mg, IntraMUSCular, PRN, low blood sugar, Blood glucose less than 70 mg/dL and patient NOT ALERT or NPO and does not have IV access., Starting on Wed08/17/23 at 1751, After administration, attempt intravenous access and start D5W at 100 mL/hr. Repeat blood glucose in 15 minutes x2 and notify provider. glucose oral gel 15 g 15 g, Oral, As needed, low blood sugar, Starting on Wed08/17/23 at 1751, If blood glucose less than 50 mg/dL and patient ALERT and NOT NPO, give 2 tubes glucose gel. If blood glucose less than 70 mg/dL and patient ALERT and NOT NPO, give 1 tube glucose gel. Repeat blood glucose in 15 minutes. If blood glucose is less than 70 mg/dL, repeat treatment and recheck blood glucose in 15 minutes x2 and notify provider. hydrALAZINE (Apresoline) injection 10 mg 10 mg, IntraVENous, Every 4 hours PRN, high blood pressure, for systolic over 160, Starting on Gabi 08/19/23 at 0111, For systolic over 160 0118 (Given - Provider: Domitila Cage RN) iopamidol (Isovue-370) 76 % injection 75 mL (COMPLETED) 75 mL, IntraVENous, IMG once PRN, contrast, Starting on Wed08/17/23 at 1506, For 1 dose 1506 (Given - Provider: TRICIA Hernandez) ondansetron (Zofran) injection 4 mg(Linked Group 2) 4 mg, IntraVENous, Every 6 hours PRN, nausea, vomiting, Starting on Wed08/17/23 at 2249, 1st Line. Give IV if patient is unable to take orally. If inadequate response within 60 minutes, proceed to next-line agent or contact provider if no further options ordered. 1157 (Given - Provider: Flor Alonso RN)1629 (See Alternative - Provider: Bucky Killian RN) 0938 (Given - Provider: Kota Luque RN) ondansetron ODT (Zofran-ODT) disintegrating tablet 4 mg(Linked Group 2) 4 mg, Oral, Every 8 hours PRN, nausea, vomiting, Starting on Wed08/17/23 at 2249, 1st Line. If inadequate response within 60 minutes, proceed to next-line agent or contact provider if no further options ordered. Patient should allow tablet to dissolve on tongue. Do not remove from blister pack until just before administering. 1157 (See Alternative - Provider: Flor Alonso RN)1629 (Given - Provider: Bucky Killian RN) 0938 (See Alternative - Provider: Kota Luque RN) polyethylene glycol (PEG) 3350 (Miralax) packet 17 g 17 g, Oral, Daily PRN, constipation, Starting on Wed08/17/23 at 2249, 1st line for treatment of constipation - give scheduled if no bowel movement in past 24 hours. 0830 (Not Given - Provider: Olimpia Mustafa RN - Reason: Other) Linked Groups Order Group 1: acetaminophen (Tylenol) tablet 650 mgJump to med 650 mg, Oral, Every 6 hours PRN, mild pain (1-3), fever, For temp greater than 100.4 F (38 C), Starting on Wed08/17/23 at 2249, Maximum dose of acetaminophen is 4000 mg from all sources in 24 hours. Or acetaminophen (Tylenol) suppository 650 mgJump to med 650 mg, Rectal, Every 6 hours PRN, mild pain (1-3), fever, For temp greater than 100.4 F (38 C), Starting on Wed08/17/23 at 2249, Administer if oral route cannot be used. Maximum dose of acetaminophen is 4000 mg from all sources in 24 hours. Group 2: ondansetron ODT (Zofran-ODT) disintegrating tablet 4 mgJump to med 4 mg, Oral, Every 8 hours PRN, nausea, vomiting, Starting on Wed08/17/23 at 2249, 1st Line. If inadequate response within 60 minutes, proceed to next-line agent or contact provider if no further options ordered. Patient should allow tablet to dissolve on tongue. Do not remove from blister pack until just before administering. Or ondansetron (Zofran) injection 4 mgJump to med 4 mg, IntraVENous, Every 6 hours PRN, nausea, vomiting, Starting on Wed08/17/23 at 2249, 1st Line. Give IV if patient is unable to take orally. If inadequate response within 60 minutes, proceed to next-line agent or contact provider if no further options ordered. Scheduled Medication Order 10/15/2023 10/16/2023 10/17/2023 ARIPiprazole (Abilify) tablet 10 mg 10 mg, Oral, Every 24 hours, First dose on Wed10/07/23 at 1700 1623 (Given - Provider: Joyce Moore LPN) 1720 (Given - Provider: Gricelda Harding RN) aspirin EC tablet 81 mg 81 mg, Oral, Daily, First dose on Wed10/07/23 at 1700, Do not crush, chew, or split. 0944 (Given - Provider: Joyce Moore LPN) 0915 (Given - Provider: Gricelda Harding RN) atorvastatin (Lipitor) tablet 10 mg 10 mg, Oral, Nightly, First dose on Wed10/07/23 at 2100 2046 (Given - Provider: Lashawn Chinchilla, GLYNN) 2007 (Given - Provider: Lashawn Chinchilla RN) clotrimazole (Lotrimin) 1 % cream Topical, 2 times daily, First dose on Wed10/07/23 at 2100 0948 (Given - Provider: Joyce Moore LPN)2050 (Given - Provider: Lashawn Chinchilla RN) 913 (Given - Provider: Gricelda Harding RN)2007 (Given - Provider: Lashawn Chinchilla RN) dilTIAZem CD (Cardizem CD) 24 hr capsule 180 mg 180 mg, Oral, Daily, First dose on Wed10/07/23 at 1700, Do not crush, chew, or split. 0944 (Given - Provider: Joyce Moore LPN) 914 (Given - Provider: Gricelda Harding RN) enoxaparin (Lovenox) syringe 30 mg 30 mg, SubCUTAneous, Every 12 hours scheduled (2 times per day), First dose on Wed10/07/23 at 2100, Indication of Use: Prophylaxis-DVT/PE 943 (Given - Provider: Joyce Moore LPN)2044 (Given - Provider: Lashawn Chinchilla RN) 913 (Given - Provider: Gricelda Harding RN)2007 (Given - Provider: Lashawn Chinchilla RN) ertapenem (INVanz) 1,000 mg in sodium chloride 0.9 % 50 mL IVPB Mini-Bag Plus 1,000 mg, IntraVENous, at 100 mL/hr, Administer over 30 Minutes, Every 24 hours, First dose on Wed10/12/23 at 1530, Mini-Bag Plus bag, Suspected Indication (Select all that apply): Bloodstream Infection 1512 (New Bag - Provider: Tanya Walker RN)1542 (Stopped - Provider: Tanya Walker RN) 1719 (New Bag - Provider: Gricelda Harding RN)1749 (Stopped - Provider: Gricelda Harding RN) FLUoxetine (PROzac) capsule 40 mg 40 mg, Oral, Daily, First dose on Wed10/07/23 at 1700 0944 (Given - Provider: Joyce Moore LPN) 15 (Given - Provider: Gricelda Harding RN) gabapentin (Neurontin) capsule 100 mg 100 mg, Oral, 2 times daily, First dose on Wed10/07/23 at 2100 0944 (Given - Provider: Joyce Moore LPN)2044 (Given - Provider: Lashawn Chinchilla RN) 09 (Given - Provider: Gricelda Harding RN)2007 (Given - Provider: Lashawn Chinchilla, GLYNN) heparin flush injection 250 Units 250 Units, IntraCATHeter, Every 12 hours, First dose on Wed10/12/23 at 1515, Each lumen. Do NOT administer to lumens with continuous fluids currently infusing. Line Care. Use 10 mL or larger syringe. 0332 (Given - Provider: Roz Su RN)1511 (Given - Provider: Tanya Walker RN) 0405 (Given - Provider: Lashawn Chinchilla, GLYNN)1515 (Not Given - Provider: Gricelda Harding RN - Reason: Other) Insulin Lispro (Humalog) injection 0-18 Units (CANCELED) 0-18 Units, SubCUTAneous, 3 times daily with meals, First dose on Wed10/12/23 at 0800, High Dose Correction Algorithm Glucose: Dose: LESS than 139 No Insulin 140-199 3 Unit 200-249 6 Units 250-299 9 Units 300-349 12 Units 350-400 15 Units Above 400 18 Units 0800 (Not Given - Provider: Joyce Moore LPN - Reason: Other - Comment: hold per endocrinology)1209 (Given - Provider: Joyce Moore LPN)1700 (Not Given - Provider: Joyce Moore LPN - Reason: Other - Comment: give 90u scheduled per endocrinology) 0922 (Given - Provider: Gricelda Harding RN) Insulin Lispro (Humalog) injection 30 Units (COMPLETED) 30 Units, SubCUTAneous, Once, On Wed10/15/23 at 0945, For 1 dose 0949 (Given - Provider: Joyce Moore LPN) Insulin Lispro (Humalog) injection 90 Units (CANCELED) 90 Units, SubCUTAneous, 3 times daily with meals, First dose (after last modification) on Wed10/15/23 at 0800, Hold if not eating; can give half the dose if eating around 50% of her meal 0800 (Not Given - Provider: Joyce Moore LPN - Reason: See Provider Order)1208 (Given - Provider: Joyce Moore LPN)1621 (Given - Provider: Joyce Moore LPN) 0921 (Given - Provider: Gricelda Harding RN) insulin NPH (Isophane) (HumuLIN N,NovoLIN N) injection 120 Units (CANCELED) 120 Units, SubCUTAneous, Nightly, First dose (after last modification) on Gabi 10/14/23 at 2100 204 (Given - Provider: Lashawn Chinchilla RN) insulin NPH (Isophane) (HumuLIN N,NovoLIN N) injection 160 Units (CANCELED) 160 Units, SubCUTAneous, Every morning, First dose (after last modification) on Wed10/15/23 at 0900 0932 (Given - Provider: Joyce Moore LPN) 0921 (Given - Provider: Gricelda Harding RN) insulin regular (HumuLIN R U-500) CONCENTRATED injection 150 Units 150 Units, SubCUTAneous, Daily before lunch, First dose on 10/16/23 at 1100, Note High CONCENTRATION: 500 units/mL, Did you verify the patient is taking U-500 insulin? With whom? Yes, Patient, How does the patient measure their dose of U-500 insulin at home? Insulin pen 1217 (Given - Provider: Gricelda Harding RN) insulin regular (HumuLIN R U-500) CONCENTRATED injection 150 Units 150 Units, SubCUTAneous, Daily With Dinner, First dose on 10/16/23 at 1700, Note High CONCENTRATION: 500 units/mL, Did you verify the patient is taking U-500 insulin? With whom? Yes, Patient, How does the patient measure their dose of U-500 insulin at home? Insulin pen 1721 (Given - Provider: Gricelda Harding RN) insulin regular (HumuLIN R U-500) CONCENTRATED injection 250 Units 250 Units, SubCUTAneous, Daily before breakfast, First dose on 10/17/23 at 0700, Note High CONCENTRATION: 500 units/mL, Did you verify the patient is taking U-500 insulin? With whom? Yes, Patient, How does the patient measure their dose of U-500 insulin at home? Insulin pen lisinopril tablet 40 mg 40 mg, Oral, Daily, First dose on 10/10/23 at 1745, On hold since Wed10/11/2023 at 1823 until manually unheld 0900 (Dose Auto Held - Provider: Marcio Armando MD) 0900 (Dose Auto Held - Provider: Marcio Armando MD) 0213 (Unheld by provider - Provider: Automatic Discharge Provider) megestrol (Megace) tablet 20 mg 20 mg, Oral, 2 times daily, First dose on Wed10/07/23 at 2100, HAZARDOUS - Handle with care 0944 (Given - Provider: Joyce Moore LPN)2045 (Given - Provider: Lashawn Chinchilla RN) 0914 (Given - Provider: Gricelda Harding RN)2124 (Given - Provider: Lashawn Chinchilla RN) melatonin tablet 10 mg 10 mg, Oral, Nightly, First dose on Wed10/07/23 at 2100 2044 (Given - Provider: Lashawn Chinchilla RN) 2007 (Given - Provider: Lashawn Chinchilla RN) metoprolol tartrate (Lopressor) tablet 25 mg 25 mg, Oral, 2 times daily, First dose on Wed10/07/23 at 2100 0943 (Given - Provider: Joyce Moore LPN)2047 (Given - Provider: Lashawn Chinchilla RN) 914 (Given - Provider: Gricelda Harding RN)2007 (Given - Provider: Lashawn Chinchilla RN) pantoprazole (ProtoNix) EC tablet 40 mg 40 mg, Oral, Daily before breakfast, First dose on Wed10/08/23 at 0700, Do not crush, chew, or split. 0619 (Given - Provider: Roz Su RN) 0619 (Given - Provider: Lashawn Chinchilla RN) polyethylene glycol (PEG) 3350 (Miralax) packet 17 g 17 g, Oral, Daily, First dose on Wed10/07/23 at 1900 0943 (Given - Provider: Joyce Moore LPN) 0914 (Given - Provider: Gricelda Harding RN) sodium chloride 0.9% (NS) flush 10 mL 10 mL, IntraCATHeter, Every 12 hours, First dose on Wed10/12/23 at 1515, Administer to each lumen, regardless of whether or not fluids are infusing. Line Care. Use 10 mL or larger syringe. 0332 (Given - Provider: Roz Su RN)1512 (Given - Provider: Tanya Walker RN) 0405 (Given - Provider: Lashawn Chinchilla, RN)1719 (Given - Provider: Gricelda Harding RN) PRN Medication Order 10/15/2023 10/16/2023 10/17/2023 acetaminophen (Tylenol) tablet 650 mg 650 mg, Oral, Every 4 hours PRN, mild pain (1-3), Starting on Gabi 10/07/23 at 1650, Maximum dose of acetaminophen is 4000 mg from all sources in 24 hours. aluminum & magnesium hydroxide-simethicone (Mylanta) 200-200-20 MG/5ML oral suspension 20 mL 20 mL, Oral, Every 6 hours PRN, to be given whenever Zofran is given, Starting on Gabi 10/14/23 at 1557 dextrose 5 % infusion 100 mL/hr, IntraVENous, PRN, Blood sugar less than 70mg/dL, Starting on Gabi 10/07/23 at 1656, Start infusion following administration of dextrose 50% or glucagon. dextrose 50 % solution 12.5 g 12.5 g, IntraVENous, PRN, low blood sugar, Blood glucose less than 70 mg/dL and patient NOT ALERT or NPO., Starting on Gabi 10/07/23 at 1656, If patient does not respond within 5 minutes, repeat dose x1. Start D5W at 100 mL/hour until ordering provider can be reached. Repeat blood glucose in 15 minutes. If blood glucose is less than 70 mg/dL, repeat treatment and recheck blood glucose in 15 minutes x2. If using Glucostabilizer, dose as instructed per system. glucagon (human recombinant) injection 1 mg 1 mg, IntraMUSCular, PRN, low blood sugar, Blood glucose less than 70 mg/dL and patient NOT ALERT or NPO and does not have IV access., Starting on Gabi 10/07/23 at 1656, After administration, attempt intravenous access and start D5W at 100 mL/hr. Repeat blood glucose in 15 minutes x2 and notify provider. glucose oral gel 15 g 15 g, Oral, As needed, low blood sugar, Starting on Gabi 10/07/23 at 1656, If blood glucose less than 50 mg/dL and patient ALERT and NOT NPO, give 2 tubes glucose gel. If blood glucose less than 70 mg/dL and patient ALERT and NOT NPO, give 1 tube glucose gel. Repeat blood glucose in 15 minutes. If blood glucose is less than 70 mg/dL, repeat treatment and recheck blood glucose in 15 minutes x2 and notify provider. heparin flush injection 250 Units 250 Units, IntraCATHeter, PRN, line care, after blood draws and after infusion, Starting on Wed10/12/23 at 1501, Do NOT administer to lumens with continuous fluids currently infusing. Line Care. Use 10 mL or larger syringe. labetalol (Normodyne,Trandate) injection 20 mg 20 mg, IntraVENous, Every 6 hours PRN, high blood pressure, Administer for SBP >170 and/or DBP >100, Starting on Wed10/10/23 at 2225 ondansetron (Zofran) injection 4 mg(Linked Group 1) 4 mg, IntraVENous, Every 6 hours PRN, nausea, vomiting, Starting on Gabi 10/14/23 at 1555, Give IV if patient is unable to take orally. ondansetron ODT (Zofran-ODT) disintegrating tablet 4 mg(Linked Group 1) 4 mg, Oral, Every 8 hours PRN, nausea, vomiting, Starting on Gabi 10/14/23 at 1555, Patient should allow tablet to dissolve on tongue. Do not remove from blister pack until just before administering. polyethylene glycol (PEG) 3350 (Miralax) packet 17 g 17 g, Oral, Daily PRN, constipation, Starting on Gabi 10/07/23 at 1654, 1st line for treatment of constipation - give scheduled if no bowel movement in past 24 hours. prochlorperazine (Compazine) injection 5 mg 5 mg, IntraVENous, Every 6 hours PRN, nausea, vomiting, Starting on Wed10/10/23 at 1729, 2nd-line if Zofran ineffective. sodium chloride 0.9% (NS) flush 10 mL 10 mL, IntraCATHeter, PRN, line care, before blood draws, before and after infusion or medication administration, Starting on Wed10/12/23 at 1501, Use 10 mL or larger syringe. Linked Groups Order Group 1: ondansetron ODT (Zofran-ODT) disintegrating tablet 4 mgJump to med 4 mg, Oral, Every 8 hours PRN, nausea, vomiting, Starting on Gabi 10/14/23 at 1555, Patient should allow tablet to dissolve on tongue. Do not remove from blister pack until just before administering. Or ondansetron (Zofran) injection 4 mgJump to med 4 mg, IntraVENous, Every 6 hours PRN, nausea, vomiting, Starting on Gabi 10/14/23 at 1555, Give IV if patient is unable to take orally. Scheduled Medication Order 12/07/2023 12/08/2023 12/09/2023 acetaminophen (Tylenol) tablet 1,000 mg (COMPLETED) 1,000 mg, Oral, Once, On Gabi 12/09/23 at 0545, For 1 dose, Maximum dose of acetaminophen is 4000 mg from all sources in 24 hours. 0545 (Given - Provid er: Nicci Kirk RN) ondansetron ODT (Zofran-ODT) disintegrating tablet 4 mg (COMPLETED) 4 mg, Oral, Once, On Gabi 12/09/23 at 0605, For 1 dose 0605 (Given - Provid er: Nicci Kirk RN) sodium chloride 0.9 % bolus 1,000 mL (COMPLETED) 1,000 mL, IntraVENous, at 1,000 mL/hr, Administer over 1 Hours, Once, On Gabi 12/09/23 at 0715, For 1 dose 0752 (New Bag - Prov ider: Riya Coleman RN)0852 (Stopped - Provider: Riya Coleman RN) Scheduled Medication Order 12/27/2023 12/28/2023 12/29/2023 dextrose 50 % solution 25 g (COMPLETED)(Linked Group 1) 25 g, IntraVENous, Once, On Wed12/29/23 at 0035, For 1 dose 0328 (Given - Provid er: Ciro Raymundo RN - Comment: needed insulin sent from pharmacy) insulin regular (HumuLIN R,NovoLIN R) injection 10 Units (COMPLETED)(Linked Group 1) 10 Units, IntraVENous, Once, On Wed12/29/23 at 0035, For 1 dose 0328 (Given - Provid er: Ciro Raymundo RN) ondansetron (Zofran) injection 4 mg (COMPLETED) 4 mg, IntraVENous, Once, On Wed12/28/23 at 2315, For 1 dose 2347 (Given - Provider: Todd Damon) ondansetron ODT (Zofran-ODT) disintegrating tablet 4 mg (COMPLETED) 4 mg, Oral, Once, On Wed12/29/23 at 0450, For 1 dose 0802 (Given - Provid er: Denise Sutherland RN - Comment: RN assumed care at 0745, pt requesting nasuea relief.) sodium chloride 0.9 % bolus 1,000 mL (COMPLETED) 1,000 mL, IntraVENous, at 1,000 mL/hr, Administer over 1 Hours, Once, On Wed12/28/23 at 2315, For 1 dose 2348 (New Bag - Provider: Todd Damon) 0334 (Stopped - Provider: Bao Bullard, EMT) PRN Medication Order 12/27/2023 12/28/2023 12/29/2023 dextrose 5 % infusion 100 mL/hr, IntraVENous, PRN, Low Blood Sugar, Starting on Wed12/29/23 at 0031, Blood glucose less than 70 mg/dL and patient NOT ALERT or NPO and does not have IV access., After administration, attempt intravenous access and start D5W at 100 mL/hr. Repeat blood glucose in 15 minutes x2 and notify provider. dextrose 50 % solution 12.5 g 12.5 g, IntraVENous, PRN, low blood sugar, Starting on Wed12/29/23 at 0031, Blood glucose less than 70 mg/dL and patient NOT ALERT or NPO., If patient does not respond within 5 minutes, repeat dose x1. Start D5W at 100 mL/hour until ordering provider can be reached. Repeat blood glucose in 15 minutes. If blood glucose is less than 70 mg/dL, repeat treatment and recheck blood glucose in 15 minutes x2. If using Glucostabilizer, dose as instructed per system. glucagon (human recombinant) injection 1 mg 1 mg, IntraMUSCular, PRN, low blood sugar, Blood glucose less than 70 mg/dL and patient NOT ALERT or NPO and does not have IV access., Starting on Wed12/29/23 at 0031, After administration, attempt intravenous access and start D5W at 100 mL/hr. Repeat blood glucose in 15 minutes x2 and notify provider. glucose oral gel 15 g 15 g, Oral, As needed, low blood sugar, Starting on Wed12/29/23 at 0031, If blood glucose less than 50 mg/dL and patient ALERT and NOT NPO, give 2 tubes glucose gel. If blood glucose less than 70 mg/dL and patient ALERT and NOT NPO, give 1 tube glucose gel. Repeat blood glucose in 15 minutes. If blood glucose is less than 70 mg/dL, repeat treatment and recheck blood glucose in 15 minutes x2 and notify provider. Linked Groups Order Group 1: insulin regular (HumuLIN R,NovoLIN R) injection 10 Units (COMPLETED)Jump to med 10 Units, IntraVENous, Once, On Wed12/29/23 at 0035, For 1 dose And dextrose 50 % solution 25 g (COMPLETED)Jump to med 25 g, IntraVENous, Once, On Wed12/29/23 at 0035, For 1 dose And POCT glucose check (COMPLETED) Once, On Wed12/29/23 at 0033, For 1 occurrence, Obtain POCT Glucose every 30 minutes following D50 administration times 2 occurrences, then every 1 hr times 2 occurrences, and then AC/HS for 24 hours. And POCT glucose check (CANCELED) Every 1 hour, First occurrence on Wed12/29/23 at 0132, Last occurrence on Wed12/29/23 at 0200, For 2 occurrences, Obtain POCT Glucose every 30 minutes following D50 administration times 2 occurrences, then every 1 hr times 2 occurrences, and then AC/HS for 24 hours. And POCT glucose check (CANCELED) 4 times daily before meals and at bedtime, First occurrence on Wed12/29/23 at 0332, Last occurrence on Wed12/31/23 at 1700, For 3 days, Obtain POCT Glucose every 30 minutes following D50 administration times 2 occurrences, then every 1 hr times 2 occurrences, and then AC/HS for 24 hours. Scheduled Medication Order 01/20/2024 01/21/2024 01/22/2024 cefTRIAXone (Rocephin) 1,000 mg in sodium chloride 0.9 % 50 mL IVPB Mini-Bag Plus (COMPLETED) 1,000 mg, IntraVENous, at 100 mL/hr, Administer over 30 Minutes, Once, On Wed01/22/24 at 0540, For 1 dose, Mini-Bag Plus bag, Suspected Indication (Select all that apply): Urinary Tract Infection 0546 (New Bag - Prov ider: Calderon Lopez RN)0616 (Stopped - Provider: Calderon Lopez RN) ondansetron (Zofran) injection 4 mg (COMPLETED) 4 mg, IntraVENous, Once, On 01/22/24 at 0300, For 1 dose 0310 (Given - Provid er: Calderon Lopez RN) sodium chloride 0.9 % bolus 1,000 mL (COMPLETED) 1,000 mL, IntraVENous, at 1,000 mL/hr, Administer over 1 Hours, Once, On 01/22/24 at 0300, For 1 dose 0310 (New Bag - Prov ider: Calderon Lopez RN)0410 (Stopped - Provider: Calderon Lopez RN) PRN Medication Order 01/20/2024 01/21/2024 01/22/2024 iopamidol (Isovue-370) 76 % injection 75 mL (COMPLETED) 75 mL, IntraVENous, IMG once PRN, contrast, Starting on 01/22/24 at 0413, For 1 dose 0413 (Given - Provid er: Mignon Fuentes, RT (R)(CT)) Scheduled Medication Order 01/26/2024 01/27/2024 01/28/2024 acetaminophen (Tylenol) tablet 1,000 mg (COMPLETED) 1,000 mg, Oral, Once, On Gabi 01/27/24 at 2009, For 1 dose, Maximum dose of acetaminophen is 4000 mg from all sources in 24 hours. 2009 (Given - Provider: Frank Nolan RN) Scheduled Medication Order 10/21/2024 10/22/2024 10/23/2024 amLODIPine (Norvasc) tablet 10 mg 10 mg, Oral, Daily, First dose on Gabi 24 at 0900 0920 (Given - Provider: Morenita Hess RN) 1020 (Given - Provider: Ezio Dunlap RN) 0821 (Self Administered Via Pump - Provider: Ezio Dunlap RN) ARIPiprazole (Abilify) tablet 10 mg 10 mg, Oral, Daily, First dose on Gabi 24 at 0900 0920 (Given - Provider: Morenita Hess RN) 1021 (Given - Provider: Ezio Dunlap RN) 0821 (Self Administered Via Pump - Provider: Ezio Dunlap RN) aspirin EC tablet 81 mg 81 mg, Oral, Daily, First dose on Gabi 24 at 0900, Do not crush, chew, or split. 0920 (Given - Provider: Morenita Hess RN) 1021 (Given - Provider: Ezio Dunlap RN) 0821 (Self Administered Via Pump - Provider: Ezio Dunlap RN) atorvastatin (Lipitor) tablet 10 mg 10 mg, Oral, Daily, First dose on Wed10/19/24 at 0900 0920 (Given - Provider: Morenita Hess RN) 1021 (Given - Provider: Ezio Dunlap RN) 0821 (Self Administered Via Pump - Provider: Ezio Dunlap RN) carvedilol (Coreg) tablet 25 mg 25 mg, Oral, 2 times daily with meals, First dose on Wed10/19/24 at 0800 0920 (Given - Provider: Morenita Hess RN)1806 (Given - Provider: Morenita Hess RN) 1021 (Given - Provider: Ezio Dunlap RN)1640 (Given - Provider: Ezio Dunlap RN) 0821 (Self Administered Via Pump - Provider: Ezio Dunlap RN)1700 (Canceled Entry - Provider: Automatic Discharge Provider - Comment: Automatically canceled at discontinue of medication order) ferrous sulfate tablet 325 mg 325 mg, Oral, Daily with breakfast, First dose on Wed10/19/24 at 0800 0918 (Given - Provider: Morenita Hess RN) 1026 (Given - Provider: Ezio Dunlap RN) 0821 (Self Administered Via Pump - Provider: Ezio Dunlap RN) FLUoxetine (PROzac) capsule 40 mg 40 mg, Oral, Daily, First dose on Wed10/19/24 at 0900 0920 (Given - Provider: Morenita Hess RN) 1021 (Given - Provider: Ezio Dunlap RN) 0821 (Self Administered Via Pump - Provider: Ezio Dunlap RN) gabapentin (Neurontin) capsule 100 mg 100 mg, Oral, 2 times daily, First dose on Wed10/18/24 at 2114 0920 (Given - Provider: Morenita Hess RN)210 (Given - Provider: Gill Edmonds RN) 1021 (Given - Provider: Ezio Dunlap RN)2010 (Given - Provider: Gill Edmonds RN) 0821 (Self Administered Via Pump - Provider: Ezio Dunlap RN) hydrALAZINE (Apresoline) tablet 25 mg 25 mg, Oral, 3 times daily, First dose on Gabi 10/19/24 at 0900 0920 (Given - Provider: Morenita Hess RN)1425 (Given - Provider: Morenita Hess RN)2109 (Given - Provider: Gill Edmonds RN) 102 (Given - Provider: Ezio Dunlap RN)1458 (Given - Provider: Ezio Dunlap RN)2010 (Given - Provider: Gill Edmonds RN) 0821 (Self Administered Via Pump - Provider: Ezio Dunlap RN)1400 (Canceled Entry - Provider: Automatic Discharge Provider - Comment: Automatically canceled at discontinue of medication order) influenza vaccine tiss-cult subunt (Flucelvax) STANDARD-DOSE injection 0.5 mL 0.5 mL, IntraMUSCular, Prior to discharge, Starting on Gabi 10/19/24 at 0900, For 1 dose insulin glargine (Lantus) injection 44 Units 44 Units, SubCUTAneous, 2 times daily, First dose (after last modification) on Gabi 10/19/24 at 2100 0918 (Given - Provider: Morenita Hess RN)2108 (Given - Provider: Gill Edmonds RN) 102 (Given - Provider: Ezio Dunlap RN)2009 (Given - Provider: Gill Edmonds RN) 0823 (Self Administered Via Pump - Provider: Ezio Dunlap RN) insulin regular (HumuLIN R U-500) CONCENTRATED injection 60 Units 60 Units, SubCUTAneous, 3 times daily before meals, First dose (after last modification) on [place] 10/22/24 at 0730, Give 50% of the dose if pt is eating around 50% of his meal Note High CONCENTRATION: 500 units/mL, Did you verify the patient is taking U-500 insulin? With whom? Yes, Patient, How does the patient measure their dose of U-500 insulin at home? U-500 insulin syringe 0730 (Not Given - Provider: Ezio Dunlap RN - Reason: Other - Comment: Pt not eating breakfast)1248 (Given - Provider: Ezio Dunlap RN)1639 (Given - Provider: Ezio Dunlap RN) 0820 (Given - Provider: Ezio Dunlap RN)1246 (Given - Provider: Ezio Dunlap RN)1600 (Canceled Entry - Provider: Automatic Discharge Provider - Comment: Automatically canceled at discontinue of medication order) insulin regular (HumuLIN R U-500) CONCENTRATED injection 90 Units (CANCELED) 90 Units, SubCUTAneous, 3 times daily before meals, First dose (after last modification) on Wed10/20/24 at 1100, Note High CONCENTRATION: 500 units/mL, Did you verify the patient is taking U-500 insulin? With whom? Yes, Patient, How does the patient measure their dose of U-500 insulin at home? U-500 insulin syringe 0920 (Given - Provider: Morenita Hess RN)1400 (Not Given - Provider: Morenita Hess RN - Reason: Other - Comment: blood sugar 161 after eating lunch)1700 (Not Given - Provider: Morenita Hess RN - Reason: Other - Comment: pt didn't eat much of anything for dinner, per endo hold) insulin regular (HumuLIN R,NovoLIN R) injection 0-18 Units (CANCELED) 0-18 Units, SubCUTAneous, 3 times daily with meals, First dose on Wed10/19/24 at 1700, 0-150 give scheduled units - no extra 151-200 give 3 extra unit 201-250 give 6 extra units 251-300 give 9 extra units 301-350 give 12 extra units 351-400 give 15 extra units 401-450 give 18 extra units units and call office 0917 (Given - Provider: Morenita Hess RN)1426 (Given - Provider: Morenita Hess RN)1700 (Not Given - Provider: Morenita Hess RN - Reason: Order parameters not met) magnesium hydroxide (Milk of Magnesia) 400 MG/5ML suspension 30 mL 30 mL, Oral, Nightly, First dose on Wed10/18/24 at 2115, Follow dose with 8 oz of water. 2108 (Given - Provider: Gill Edmonds, GLYNN) 2010 (Given - Provider: Gill Edmonds RN) menthol-zinc oxide (Calmoseptine - Risamine) 0.44-20.625 % ointment 1 Application 1 Application, Topical, 2 times daily, First dose on Wed10/20/24 at 1500, Apply topically after hygiene to posterior upper thighs, ischial, bilateral buttock. 921 (Given - Provider: Morenita Hess RN)2122 (Given - Provider: Gill Edmonds, RN) 1027 (Given - Provider: Ezio Dunlap, RN)2015 (Given - Provider: Gill Edmonds, RN) 0822 (Self Administered Via Pump - Provider: Ezio Dunlap RN) metoclopramide (Reglan) tablet 10 mg 10 mg, Oral, 4 times daily before meals & nightly, First dose on Wed10/18/24 at 2115, On hold since Wed10/19/2024 at 1120 until manually unheld 0700 (Dose Auto Held - Provider: Álvaro Thomas MD)1100 (Dose Auto Held - Provider: Álvaro Thomas MD)1700 (Dose Auto Held - Provider: Álvaro Thomas MD)2100 (Dose Auto Held - Provider: Álvaro Thomas MD) 0700 (Dose Auto Held - Provider: Álvaro Thomas MD)1100 (Dose Auto Held - Provider: Álvaro Thomas MD)1700 (Dose Auto Held - Provider: Álvaro Thomas MD)2100 (Dose Auto Held - Provider: Álvaro Thomas MD) 0700 (Dose Auto Held - Provider: Álvaro Thomas MD)1100 (Dose Auto Held - Provider: Álvaro Thomas MD)1724 (Unheld by provider - Provider: Automatic Discharge Provider) miconazole (Micotin) 2 % powder Topical, 2 times daily, First dose on Wed10/20/24 at 1500, Apply topically to all skin folds after hygiene use ph balanced skin wipe and pat dry. 921 (Given - Provider: Morenita Hess RN)2109 (Given - Provider: Gill Edmonds, GLYNN) 1027 (Given - Provider: Ezio Dunlap, RN)2015 (Given - Provider: Gill Edmonds, GLYNN) 0822 (Self Administered Via Pump - Provider: Ezio Dunlap RN) pantoprazole (ProtoNix) 40 mg in sodium chloride (PF) 0.9 % 10 mL injection 40 mg, IntraVENous, Administer over 2 Minutes, 2 times daily, First dose on Wed10/19/24 at 0600, Reconstitute with 10 ml NS. Vial expires 2 hrs after reconstitution. 0640 (Given - Provider: Aaron Guzman RN)1426 (Given - Provider: Morenita Hess RN) 0611 (Given - Provider: Gill Edmonds RN)1640 (Given - Provider: Ezio Dunlap RN) 0553 (Given - Provider: Gill Edmonds RN)1500 (Canceled Entry - Provider: Automatic Discharge Provider - Comment: Automatically canceled at discontinue of medication order) piperacillin-tazobacta m (Zosyn) 3,375 mg in sodium chloride 0.9 % 50 mL IVPB Mini-Bag Plus 3,375 mg, IntraVENous, at 12.5 mL/hr, Administer over 4 Hours, Every 8 hours, First dose on Gabi 10/19/24 at 0800, Mini-Bag Plus bag, Suspected Indication (Select all that apply): Intra-Abdominal Infection 0052 (New Bag - Provider: Aaron Guzman RN)0452 (Stopped - Provider: Aaron Guzman RN)0918 (New Bag - Provider: Morenita Hess RN)1318 (Stopped - Provider: Morenita Hess RN)1806 (New Bag - Provider: Morenita Hess RN)2206 (Stopped - Provider: Gill Edmonds RN) 0034 (New Bag - Provider: Gill Edmonds RN)0434 (Stopped - Provider: Gill Edmonds RN)1023 (New Bag - Provider: Ezio Dunlap RN)1423 (Stopped - Provider: Ezio Dunlap RN)1645 (New Bag - Provider: Ezio Dunlap RN)2045 (Stopped - Provider: Gill Edmonds RN) 0023 (New Bag - Provider: Gill Edmonds RN)0423 (Stopped - Provider: Gill Edmonds RN)0837 (New Bag - Provider: Ezio Dunlap RN)1237 (Stopped - Provider: Ezio Dunlap RN)1600 (Canceled Entry - Provider: Automatic Discharge Provider - Comment: Automatically canceled at discontinue of medication order) potassium chloride CR (Klor-Con M10) ER tablet 40 mEq (COMPLETED) 40 mEq, Oral, Once, On 10/21/24 at 0815, For 1 dose, Best given with food and plenty of water to minimize gastric irritation. Do not crush or chew. 0919 (Given - Provider: Morenita Hess RN) potassium chloride CR (Klor-Con M10) ER tablet 40 mEq (COMPLETED) 40 mEq, Oral, Once, On 10/22/24 at 0800, For 1 dose, Best given with food and plenty of water to minimize gastric irritation. Do not crush or chew. 1021 (Given - Provider: Ezio Dunlap RN) sodium chloride 0.9% (NS) flush 10 mL 10 mL, IntraVENous, Every 12 hours scheduled (2 times per day), First dose on Wed10/18/24 at 2115 0900 (Given - Provider: Morenita Hess RN)2099 (Not Given - Provider: Gill Edmonds RN - Reason: IV Fluids Infusing) 0900 (Given - Provider: Ezio Dunlap RN)2015 (Given - Provider: Gill Edmonds RN) 0822 (Self Administered Via Pump - Provider: Ezio Dunlap RN) torsemide (Demadex) tablet 10 mg 10 mg, Oral, Daily, First dose on Gab[place] 10/19/24 at 0900 0807 (Unheld by provider - Provider: Álvaro Thomas MD)0920 (Given - Provider: Morenita Hess RN) 102 (Given - Provider: Ezio Dunlap RN) 0821 (Self Administered Via Pump - Provider: Ezio Dunlap RN) PRN Medication Order 10/21/2024 10/22/2024 10/23/2024 acetaminophen (Tylenol) suppository 650 mg(Linked Group 1) 650 mg, Rectal, Every 6 hours PRN, mild pain (1-3), fever, For temp greater than 100.4 F (38 C), Starting on Wed10/18/24 at 2112, Administer if oral route cannot be used. Maximum dose of acetaminophen is 4000 mg from all sources in 24 hours. 0821 (See Alternativ e - Provider: Ezio Dunlap RN) acetaminophen (Tylenol) tablet 650 mg(Linked Group 1) 650 mg, Oral, Every 6 hours PRN, mild pain (1-3), fever, For temp greater than 100.4 F (38 C), Starting on Wed10/18/24 at 2111, Maximum dose of acetaminophen is 4000 mg from all sources in 24 hours. 0821 (Self Administe red Via Pump - Provider: Ezio Dunlap RN) bisacodyl (Dulcolax) EC tablet 5 mg 5 mg, Oral, 2 times daily PRN, constipation, Starting on Wed10/18/24 at 2111, Do not give within 1 hour of antacids, milk, or dairy products. Do not crush, chew, or split. dextrose 5 % infusion 100 mL/hr, IntraVENous, PRN, Blood sugar less than 70mg/dL, Starting on Wed10/18/24 at 2111, Start infusion following administration of dextrose 50% or glucagon. dextrose 50 % solution 12.5 g 12.5 g, IntraVENous, PRN, low blood sugar, Blood glucose less than 70 mg/dL and patient NOT ALERT or NPO., Starting on Wed10/18/24 at 2111, If patient does not respond within 5 minutes, repeat dose x1. Start D5W at 100 mL/hour until ordering provider can be reached. Repeat blood glucose in 15 minutes. If blood glucose is less than 70 mg/dL, repeat treatment and recheck blood glucose in 15 minutes x2. If using Glucostabilizer, dose as instructed per system. glucagon (human recombinant) injection 1 mg 1 mg, IntraMUSCular, PRN, low blood sugar, Blood glucose less than 70 mg/dL and patient NOT ALERT or NPO and does not have IV access., Starting on Wed10/18/24 at 2111, After administration, attempt intravenous access and start D5W at 100 mL/hr. Repeat blood glucose in 15 minutes x2 and notify provider. glucose oral gel 15 g 15 g, Oral, As needed, low blood sugar, Starting on Wed10/18/24 at 2111, If blood glucose less than 50 mg/dL and patient ALERT and NOT NPO, give 2 tubes glucose gel. If blood glucose less than 70 mg/dL and patient ALERT and NOT NPO, give 1 tube glucose gel. Repeat blood glucose in 15 minutes. If blood glucose is less than 70 mg/dL, repeat treatment and recheck blood glucose in 15 minutes x2 and notify provider. HYDROmorphone (Dilaudid) injection 0.25 mg 0.25 mg, IntraVENous, Every 4 hours PRN, severe pain (7-10), moderate pain (4-6), Starting on Gabi 10/19/24 at 1124, If oral and IV narcotics ordered, use oral first and only use IV if oral is ineffective or cannot take oral. Do Not give oral and IV within 1 hour of each other unless specifically ordered. 2231 (Given - Provider: Gill Edmonds RN) ipratropium-albuterol (Duo-Neb) 0.5-2.5 mg/3 mL nebulizer solution 3 mL 3 mL, Nebulization, 4 times daily PRN, shortness of breath, wheezing, Starting on Wed10/18/24 at 2249 Melatonin disintegrating tablet 10 mg 10 mg, Oral, Nightly PRN, sleep, Starting on Wed10/18/24 at 2112 naloxone (Narcan) injection 0.4 mg 0.4 mg, IntraVENous, Every 5 min PRN, opioid reversal, respiratory depression, Starting on Gabi 10/19/24 at 1124, +++ For RR <10, pinpoint pupils, over sedation for opioid reversal - MUST notify vp organizational development provider immediately after first dose, may give IM or SQ if no IV access +++ ondansetron (Zofran) injection 4 mg(Linked Group 2) 4 mg, IntraVENous, Every 6 hours PRN, nausea, vomiting, Starting on Wed10/18/24 at 2112, 1st Line. Give IV if patient is unable to take orally. If inadequate response within 60 minutes, proceed to next-line agent or contact provider if no further options ordered. ondansetron ODT (Zofran-ODT) disintegrating tablet 4 mg(Linked Group 2) 4 mg, Oral, Every 8 hours PRN, nausea, vomiting, Starting on Wed10/18/24 at 2112, 1st Line. If inadequate response within 60 minutes, proceed to next-line agent or contact provider if no further options ordered. Patient should allow tablet to dissolve on tongue. Do not remove from blister pack until just before administering. sodium chloride 0.9 % infusion 5-250 mL/hr, IntraVENous, PRN, if patient receiving piggyback infusions and maintenance fluids are not ordered OR KVO fluids to protect IV site / prevent frequent line interruptions/ long duration, Starting on Wed10/18/24 at 2112, For piggyback infusion, administer at same rate as piggyback for a total of 25 mL. Enter 25 mL into dose field and piggyback rate into rate field of order. If piggyback is infusing at a rate less than 100 mL/hr, enter 25 mL into dose field and 100 mL/hr into rate field of order. For KVO fluids, enter rate of 20 mL/hr or less into rate field of order. sodium chloride 0.9% (NS) flush 10 mL 10 mL, IntraVENous, PRN, line care, Starting on Wed10/18/24 at 2111, After every IV line use Linked Groups Order Group 1: acetaminophen (Tylenol) tablet 650 mgJump to med 650 mg, Oral, Every 6 hours PRN, mild pain (1-3), fever, For temp greater than 100.4 F (38 C), Starting on Wed10/18/24 at 2111, Maximum dose of acetaminophen is 4000 mg from all sources in 24 hours. Or acetaminophen (Tylenol) suppository 650 mgJump to med 650 mg, Rectal, Every 6 hours PRN, mild pain (1-3), fever, For temp greater than 100.4 F (38 C), Starting on Wed10/18/24 at 2111, Administer if oral route cannot be used. Maximum dose of acetaminophen is 4000 mg from all sources in 24 hours. Group 2: ondansetron ODT (Zofran-ODT) disintegrating tablet 4 mgJump to med 4 mg, Oral, Every 8 hours PRN, nausea, vomiting, Starting on Wed10/18/24 at 2111, 1st Line. If inadequate response within 60 minutes, proceed to next-line agent or contact provider if no further options ordered. Patient should allow tablet to dissolve on tongue. Do not remove from blister pack until just before administering. Or ondansetron (Zofran) injection 4 mgJump to med 4 mg, IntraVENous, Every 6 hours PRN, nausea, vomiting, Starting on Wed10/18/24 at 2111, 1st Line. Give IV if patient is unable to take orally. If inadequate response within 60 minutes, proceed to next-line agent or contact provider if no further options ordered. FOR RECORDS PERTAINING TO PATIENTS WHO ARE OR HAVE BEEN ENROLLED IN A CHEMICAL DEPENDENCY/SUBSTANCEABUSE PROGRAM, SOME INFORMATION MAY BE OMITTED. This clinical summary was aggregated from multiple sources. Caution should be exercised in using it in the provision of clinical care. This summary normalizes information from multiple sources, and as a consequence, information in this document may materially change the coding, format and clinical context of patient data. In addition, data may be omitted in some cases. CLINICAL DECISIONS SHOULD BE BASED ON THE PRIMARY CLINICAL RECORDS. [facility] [employer] [facility]. provides no warranty or guarantee of the accuracy or completeness of information in this document.
[2025-05-10 08:11] LABS: Hematocrit 34.2 % (37-47); Hemoglobin 10.5 g/dL (12.0-15.0); Mean Corp Hgb Conc 30.7 g/dL (32-36); Mean Corpuscular Volume 87.5 fL (81-99); Mean Platelet Vol. 10.1 fl (6.2-12.0); Platelet Count 318 K/mm3 (150-450); RBC Distribution Width CV 14.9 % (11.6-14.6); RBC Distribution Width SD 47.7 fl (35.1-43.9); Red Blood Count 3.91 M/mm3 (4.2-5.4); White Blood Count 6.5 K/mm3 (4.4-11.0)
[2025-05-10 09:19] LABS: Anion Gap 10 (5-15); BUN 16 mg/dL (4-19); BUN/Creat Ratio 25.7 RATIO (10-20); Calcium,Total 8.8 mg/dL (7.6-11.0); Carbon Dioxide 26.2 mmol/L (21.0-32.0); Chloride 103 mmol/L (98-108); Glucose 202 mg/dL (70-99); Potassium 4.5 mmol/L (3.3-5.1)
== END ==
LOC: OLS.SANC 04:00
PROVIDERS: Referring Provider Internal Medicine; Visit Provider Internal Medicine
DX: I10 Essential (primary) hypertension (principal); E78.5 Hyperlipidemia, unspecified; E11.9 Type 2 diabetes mellitus without complications
CPT/HCPCS: 36415; 80048; 85027

== ENCOUNTER → 2025-06-11 05:00 | Outpatient (REF) | payer MEDICARE, MEDICAID, SELFPAY ==
[2025-06-11 09:35] LABS: Hematocrit 34.7 % (37-47); Hemoglobin 10.5 g/dL (12.0-15.0); Mean Corp Hgb Conc 30.3 g/dL (32-36); Mean Corpuscular Volume 87.6 fL (81-99); Mean Platelet Vol. 10.3 fl (6.2-12.0); Platelet Count 295 K/mm3 (150-450); RBC Distribution Width CV 14.7 % (11.6-14.6); RBC Distribution Width SD 47.3 fl (35.1-43.9); Red Blood Count 3.96 M/mm3 (4.2-5.4); White Blood Count 7.6 K/mm3 (4.4-11.0)
[2025-06-11 09:36] LABS: Anion Gap 9 (5-15); BUN 16 mg/dL (4-19); BUN/Creat Ratio 23.2 RATIO (10-20); Calcium,Total 9.1 mg/dL (7.6-11.0); Carbon Dioxide 29.0 mmol/L (21.0-32.0); Chloride 104 mmol/L (98-108); Glucose 136 mg/dL (70-99); Potassium 4.3 mmol/L (3.3-5.1)
== END ==
LOC: OLS.SANC 05:00
PROVIDERS: Visit Provider Internal Medicine
DX: E11.9 Type 2 diabetes mellitus without complications (principal); I10 Essential (primary) hypertension; E78.5 Hyperlipidemia, unspecified
CPT/HCPCS: 36415; 80048; 85027

== ENCOUNTER → 2025-07-06 | Outpatient (REF) | payer MEDICAID, MEDICARE, SELFPAY ==
[2025-07-06 08:49] LABS: Hematocrit 35.3 % (37-47); Hemoglobin 10.9 g/dL (12.0-15.0); Mean Corp Hgb Conc 30.9 g/dL (32-36); Mean Corpuscular Volume 84.0 fL (81-99); Mean Platelet Vol. 10.4 fl (6.2-12.0); Platelet Count 317 K/mm3 (150-450); RBC Distribution Width CV 14.4 % (11.6-14.6); RBC Distribution Width SD 43.9 fl (35.1-43.9); Red Blood Count 4.20 M/mm3 (4.2-5.4); White Blood Count 7.3 K/mm3 (4.4-11.0)
[2025-07-06 09:27] LABS: AST(SGOT) 16 U/L (<=31); Alanine Aminotransfer ALT/SGPT 17 U/L (<=34); Albumin, Serum 3.7 g/dL (3.5-5.0); Alkaline Phosphatase 196 U/L (35-104); Anion Gap 9 (5-15); BUN 20 mg/dL (4-19); BUN/Creat Ratio 30.4 RATIO (10-20); Calcium,Total 9.0 mg/dL (7.6-11.0); Carbon Dioxide 27.9 mmol/L (21.0-32.0); Chloride 100 mmol/L (98-108); Globulin 2.9 g/dL (2.2-4.2); Glucose 166 mg/dL (70-99); Potassium 4.0 mmol/L (3.3-5.1)
[2025-07-06 09:33] LABS: Creatinine, Urine (random) 45.20 mg/dL (28.00-217.00); Microalbumin,Random Urine 28.9 mg/L (<20 mg/L)
[2025-07-06 10:19] LABS: Cholesterol 162 mg/dL (<=200); Low Density Lipoprotein Calc. 88 mg/dL; Triglycerides 139 mg/dL; Very Low Density Lipoprotein 28 mg/dL (5-40); cholesterol:hdl ratio screen 3.49
== END | disposition home or self-care (01) ==
LOC: OLS.SANC 05:00
PROVIDERS: Visit Provider Internal Medicine
DX: E11.9 Type 2 diabetes mellitus without complications (principal); E78.5 Hyperlipidemia, unspecified; Z79.899 Other long term (current) drug therapy
CPT/HCPCS: 36415; 80053; 80061; 82043; 82570; 83036; 85027

== ENCOUNTER → 2025-07-10 | Outpatient (REF) | payer MEDICAID, MEDICARE, SELFPAY ==
[2025-07-10 09:26] LABS: Color, Urine Yellow (Yellow); Glucose, Dipstick 50 mg/dl (Normal); Ketone-Dipstick Negative (Negative); Leukocyte Esterase-Dipstick 25 /ul (Negative); Nitrite-Dipstick Negative (Negative); Occult Blood-Urine 10 /ul (Negative); Protein-Dipstick 100 mg/dl (Negative); Specific Gravity, Urine 1.020 (1.002-1.030); Urine Bilirubin Dipstick Negative (Negative)
== END | disposition home or self-care (01) ==
LOC: OLS.SANC 04:00
PROVIDERS: Visit Provider Internal Medicine
DX: N39.0 Urinary tract infection, site not specified (principal)
CPT/HCPCS: 81002; 87077; 87086; 87088; 87186

== ENCOUNTER → 2025-07-12 05:00 | Outpatient (REF) | payer MEDICARE, SELFPAY ==
--- OUTSIDE RECORDS SUMMARY | 2025-07-12 04:19 | XMS RPT_ITS | CCD ---
Author Organization [facility] CliniSynm Care Team Providers Care Tile Machine Operator Name Role Phone Kylah Luu Unavailable Unavailable Rasper, Kylah J Unavailable Unavailable RASPER, KYLAH J Unavailable Unavailable RASGINA, KYLAH Escobar Unavailable Unavailable RASPER, KYLAH Escobar Unavailable Unavailable BASHORJORGESARBJIT B Unavailable Unavailable AARON, THEO Unavailable Unavailable MARINE, JAYSON Unavailable Unavailable BICAKODAK, VERA Unavailable Unavailable RASPER, KYLAH J Unavailable Unavailable RASGINA, KYLAH J Unavailable Unavailable BASHORJORGESARBJIT B Unavailable Unavailable GATITO, TERRIE Unavailable Unavailable MARINE, JAYSON Unavailable Unavailable ANASTASIYA MASTERSRICK Unavailable Unavailable RASKYLAH FUENTES J Unavailable Unavailable MARIYARJORGESARBJIT B Unavailable Unavailable RASPER, KYLAH J Unavailable Unavailable RASGINA, KYLAH Escobar Unavailable Unavailable JERRY DAVIS Unavailable Unavailable RASPER, KYLAH Escobar Unavailable Unavailable MARINE, JAYSON Unavailable Unavailable GUERRERO, BRANDON Unavailable Unavailable MARINE, JAYSON Referring Unavailable KYLAH LUU Referring Unavailable Jared Guzman Primary Care Provider [phone] Jared Guzman Primary Care Provider [phone] Jared Guzman Primary Care Provider [phone] Unavailable Primary Care Provider Unavailabl e Jared Guzman Primary Care Provider [phone] Jared Guzman Primary Care Provider Jared Guzman Primary Care Provider [phone] SARBJIT GARNER Primary Care Unavail able ELDA REAVES Attending Unavailable Alejandro Stephenson APRN, CNP Unavailable [phone] Jared Singh Attending Provider Unavailab Jared Vazquez Referring Provider Unavailab Jared Vazquez Attending Provider Unavailab Jared Vazquez Referring Provider Unavailab Jared Vazquez Attending Provider Unavailab le Katsaros OLS, Peter Referring Provider Unavailab le Mandel DIRECTOR OF COMMUNITY SERVICES - TELEPHOTO ENGINEER, Alejandro Unavailable [phone] KATSAROS, PETER Primary Care Unavailable VICENTE MIXON Attending Unavailable KATSAROS, PETER Primary Care Unavailable SHAWNA, ÁLVARO Attending Unavailable SHAWNA, ÁLVARO Admitting Unavailable SHAWN FARIAS Consulting Unavailable BASAR, FARHAD Admitting Unavailable BASAR, FARHAD Attending Unavailable KATSAROS, PETER Primary Care Unavailable KATSAROS, PETER Primary Care Unavailable VIRGIL MEDEROS Attending Unavailable KATSAROS, PETER Primary Care Unavailable CHARLY, GRACE Admitting Unavailable CHARLY, GRACE Attending Unavailable MARGO GUERRERO Attending Unavailable KATSAROS, PETER Primary Care Unavailable MANDEL, ALEJANDRO Attending Unavailable MANDEL, ALEJANDRO Referring Unavailable KATSAROS, PETER Primary Care Unavailable MANDEL, ALEJANDRO Attending Unavailable KATSAROS, JARED Referring Unavailable KATSAROS, PETER Primary Care Unavailable ASUNCION VALENCIA Attending Unavailable KATSAROS, PETER Primary Care Unavailable KAUSHAL SCHULTZ Attending Unavailable KATSAROS, PETER Primary Care Unavailable ASUNCION VALENCIA Attending Unavailable KATSAROS, PETER Primary Care Unavailable LILO RIZO Attending Unavailable KATSAROS, PETER Primary Care Unavailable WANDA JOHNSON Attending Unavailable ROSY IBARRA Referring Unavailable KATSAROS, PETER Primary Care Unavailable Katsaros OLS, Jared Attending Unavailable Katsaros OLS, Jared Attending Unavailable Katsaros OLS, Jared Attending Unavailable Katsaros OLS, Jared Referring Unavailable Katsaros OLS, Jared Referring Unavailable Katsaros [...] Attending Unavailable Katsaros OLS, Jared Referring Unavailable Medications Current Medications Medication Drug Class(es) [...] the evening. Take with meals. 01/11/2024 Active cyclobenzaprine hydrochloride 10 mg oral tablet [...] Active docusate sodium 100 mg oral tablet (20 sources) take 1 tablet by mouth once daily docusate sodium (Colace) 100 MG tablet Take 100 mg by mouth daily. Active docusate sodium 50 mg / sennosides, long-term 8.6 mg oral tablet (20 sources) take [...] injection once 10 Units, SubCUTAneous, Once, On Wed10/19/24 at 1000, For 1 dose End: 02-28-2025 [...] inulin 200 mg / lactobacillus rhamnosus gg [id number] unt oral capsule (1 source) Start: 09-18-2020 [...] since Wed10/11/2023 at 1823 until manually unheld Start: 10-07-2023 End: 10-10-2023 take 40 mg by mouth every twenty-four hours 40 mg, Oral, Every 24 hours, First dose on Wed10/07/23 at 1700, On hold since Wed10/10/2023 at 1727 until manually unheld Start: 08-18-2023 [...] st dose on Wed06/15/19 at 1345 End: 10-14-2023 take 1 tablet [...] Oral, 4 times daily, First dose on Wed10/07/23 at 1700 Start: 11-25-2020 End: 11-28-2020 inject [...] 1 tablet by mouth daily 0 Active pantoprazole 40 mg delayed release oral tablet (20 sources) Proton Pump Inhibitor Star t: 09-09 20 End: 10-08 23 pantoprazole (ProtoNix) 40 MG EC tablet Take 40 mg by mouth. 11/26/2020 Active pantoprazole (PROTONIX) injection 40 mg (1 source) Star t: 09-08 20 pantoprazole (PROTONIX) injection 40 mg phenol 14 mg/ml mouthwash (1 source) Star t: 06-08 0 19 phenol 1.4 % mouth spray 1 spray polyethylene glycol 3350 161906 mg / potassium chloride 2970 mg / sodium bicarbonate 6740 mg / sodium chloride 5860 mg / sodium sulfate 15481 mg powder for oral solution (1 source) Osmotic Laxative Star t: 12-09 End: 12-09 polyethylene glycol (GaviLyte-G) 236 g solution Indications: Fecal occult blood test positive , History of anemia Please take as directed by GI office for colonoscopy prep. 4000 mL 12/21/2024 12/22/2024 Active 1 ml promethazine hydrochloride 25 mg/ml injection (2 sources) Phenothiazine Star t: 09-08 20 promethazine (PHENERGAN) injection 25 mg Start: 09-23-2020 End: 09-23-2020 promethazine (PHENERGAN) tab let 25 mg insulin, regular, human 500 unt/ml injectable solution (20 sources) Insulin Start: 06-12-2025 insulin regula r (HumuLIN R) 500 UNIT/ML CONCENTRATED injection Indications: Type 2 diabetes mellitus with hyperglycemia, with long-term current use of insulin (HCC) U500 150 before breakfast 130 before lunch and 150 units before dinner PLUS SSI (10 units per 50 over 200) Max Daily Dose 500 units If blood sugar before meal is 90-120, give half dose If less than 90 and patient eating little carbohydrates for meal, hold u500 dose. 90 mL 3 06/12/2025 Active Start: 11-28-2024 End: 02-15-2025 insulin regular (HumuLIN [...] EVERY 8 HOURS PRN, Muscle spasms, Starting Wed09/18/20 at 0115 torsemide 10 mg oral tablet [...] 12 HOURS PRN, Pain Moderate (4-6), Starting Wed09/18/20 at 0115 triamcinolone acetonide 1 mg/ml topical [...] hours PRN, mild pain (1-3), Starting on Wed10/07/23 at 1650, Maximum dose of acetaminophen is [...] Taking at Discharge) 20 ml albumin human, long-term 250 mg/ml injection (2 sources) Human Serum Albumin Start: 10-09-2023 End: 10-10-2023 50 g, IntraVENous, at 120 mL/hr, Once, On 10/09/23 at 2300, For 1 dose, Infusion rate [...] hours, First dose on Gabi 10/07/23 at 1700 Start: 08-18-2023 End: 08-19-2023 take 10 mg by mouth once daily 10 mg, Oral, Daily, Fir st dose on 08/18/23 at 0900 Start: 06-15-2019 End: 07-01-2023 take [...] split. Active take 10 mg rectal ro scott once daily as needed for constipation bisacodyl [...] ringers bolus castor oil 0.788 mg/mg / mongolian balsam 0.087 mg/mg topical ointment (4 sources) Standardized Chemical Allergen Start: 01-17-2019 End: 09-17-2020 Balsam [place] Oil (VENELEX) OINT ointment Apply topically daily [...] Indication (Select all that apply): Intra-Abdominal Infection cephalexin 500 mg oral capsule (11 sources) Cephalosporin Antibacterial Start: 07-10-2025 End: 07-10-2025 take 500 mg by mouth once 500 mg, Oral, Once, On Wed07/10/25 at 2240, For 1 dose, Suspected Indication (Select all that apply): Urinary Tract Infection Start: 07-10-2025 End: 07-15-2025 take 1 capsule by mouth twice daily cephalexin (Keflex) 500 MG capsule Take 1 capsule (500 mg) by mouth 2 times daily for 5 days. 10 capsule 07/10/2025 07/15/2025 Active Start: 01-22-2024 End: 01-29-2024 take 1 capsule [...] days 28 capsule 0 06/27/2019 07/04/2019 Active cetirizine hydrochloride 10 mg oral tablet (2 [...] needed, low b lood sugar, Starting on 06/28/23 at 0848 If blood glucose less than [...] 180 mg, Oral, Daily, First dose on Gabi 10/07/23 at 1700, Do not crush, chew, or [...] medicament (substance) (2 sources) Start: 10-07-2023 End: 12-02-2023 take 1500 mg intravenously every twelve hours [...] at 1345 take 1 capsule by mo [facility] once daily FLUoxetine (PROzac) 40 MG capsule [...] daily, First dose on Wed06/28/23 at 0900 glucagon (rdna) 1 mg injecti on (13 sources) Antihypoglycemic Agent Start: 10-18-2024 End: 10-23-2024 Start: 12-29-2023 End: 12-29-2023 glucagon (human recombinant) injection 1 mg Start: 10-07-2023 End: 10-17-2023 1 mg, IntraMUSCular, PRN, lo w blood sugar, Blood glucose less than 70 mg/dL and patient NOT ALERT or NPO and does not have IV access., Starting on Wed10/07/23 at 1656, After administration, attempt intravenous access [...] and does not have IV access., Starting Wed09/18/20 at 0115 After administration, attempt intravenous access [...] dextrose 5 % infusion Start: 10-07-2023 End: 10-17-2023 12.5 g, IntraVENous, PRN, lo w blood [...] ALERT or NPO., Starting on Wed06/28/23 at 0848 If patient does not respond [...] less than 70mg/dL, Starting on Wed06/28/23 at 0848 Start infusion following administration of dextrose 50% or glucagon. Start: 11-23-2020 dextrose 50 % IV solution Start: 11-23-2020 dextrose 5 % s olution Start: 11-23-2020 glucose (GLUTO SE) 40 % oral gel 15 g Start: 09-18-2020 15 g, Oral, IN N, Low blood sugar, Starting Wed09/18/20 at [...] Start: 10-12-2023 End: 10-17-2023 250 Units, IntraCATHeter, IN N, line care, after blood draws and [...] First dose on Gabi 10/19/24 at 0900 Start: 08-19-2023 End: 08-19-2023 take [...] times daily with meals, First dose on 10/11/23 at 0800, Skip if skipping a meal [...] Nightly, First dose (after last modification) on Wed10/14/23 at 2100 Start: 10-13-2023 End: 10-14-2023 inject 100 [IU] by subcutaneous injection once daily 100 Units, SubCUTAneous, Nightly, First dose (after last modification) on Wed10/13/23 at 2100 Start: 10-13-2023 End: 10-13-2023 inject 20 [IU] by subcutaneous injection once 20 Units, SubCUTAneous, Once, On Wed10/13/23 at 0900, For 1 dose Start: 10-12-2023 End: 10-13-2023 inject 70 [IU] by subcutaneous injection twice daily 70 Units, SubCUTAneous, 2 times daily, First dose (after last modification) on Wed10/12/23 at 0900 Start: 10-11-2023 End: 10-12-2023 inject 40 [IU] by subcutaneous injection twice daily 40 Units, SubCUTAneous, 2 times daily, First dose on Wed10/11/23 at 0900 Start: 10-10-2023 End: 10-10-2023 inject 35 [IU] by subcutaneous injection once 35 Units, SubCUTAneous, Once, On Wed10/10/23 at 1745, For 1 dose Start: 10-08-2023 [...] iopamidol (Isovue-370) 76 % injection 100 mL (5 sources) Start: 07-10-2025 End: 07-10-2025 take 100 mL intravenously once as needed 100 mL, IntraVENous, IMG once PRN, contrast, Starting on Wed07/10/25 at 1956, For 1 dose Start: 10-18-2024 End: 10-18-2024 take 100 mL [...] DBP >100, Starting on Wed10/10/23 at 2225 Start: 11-27-2020 labetalol (NOR MODYNE;TRANDATE) [...] tablet by mouth 0 Active lactobacillus acidophilus [id number] unt / pectin 100 mg oral tablet (20 sources) End: 01-11-2024 take 1 tablet by mouth in the morning Lactobacillus Acid-Pectin (Acidophilus/Baldwin Pectin) tablet Take 1 tablet by mouth [...] at 2100 take 1 tablet by stacie th once daily as needed melatonin 10 MG [...] needed, Starting on Wed10/19/24 at 1350, Intraprocedure 1 ml morphine sulfate [...] by Nasal route as needed 0 Active 2 ml ondansetron 2 mg/ml injection (20 sources) Serotonin-3 Receptor Antagonist Start: 07-10-2025 End: 07-10-2025 4 mg, IntraVENous, Once, On Wed07/10/25 at 1720, For 1 dose Start: 12-01-2024 End: 12-08-2024 take 1 tablet by mouth every eight [...] End: 10-18-2024 4 mg, IntraVENous, Once, On Wed10/18/24 at 1645, For 1 dose Start: 01-22-2024 [...] 0 11/25/2020 Discontinued (Stop Taking at Discharge) ondansetron ODT (Zofran-ODT) disintegrating tablet 4 mg [...] that apply): Intra-Abdominal Infection polyethylene glycol 3350 93162 mg powder for oral solution (20 sources) Osmotic Laxative Start: 10-07-2023 End: 10-17-2023 17 g, Oral, Daily, First dose on Wed10/07/23 at 1900 Start: 08-17-2023 End: 08-19-2023 17 g, Oral, Daily, First dos e on Wed08/18/23 at 0900 Start: 06-28-2023 End: 07-01-2023 17 g, Oral, Daily, First dos e on Wed06/28/23 at 0900 Start: 09-18-2020 End: 12-29-2020 take 17 g by mouth once daily polyethylene glycol (GLY COLAX) 17 g packet Take 17 g by mouth daily 527 g 1 11/29/2020 12/29/2020 Active microencapsulated potassium chloride 10 meq extended release oral tablet (20 sources) Start: 10-21-2024 End: 10-22-2024 40 mEq, Oral, Once, On Wed10/22/24 at 0800, For 1 dose, Best given with food and plenty of water to minimize gastric irritation. Do not crush or chew. Start: 08-17-2023 End: 08-19-2023 20 mEq, Oral, Every 24 hours , First dose on Wed08/17/23 at 2250, Best [...] mEq, Oral, DAILY, First d ose on Wed06/15/19 at 1345 Do not crush or break. [...] Start: 06-29-2023 End: 06-29-2023 Propofol (Diprivan) injection 50 ml sodium chloride 9 mg/ml injection (20 sources) Start: 07-10-2025 End: 07-10-2025 1,000 mL, IntraVENous, at 1,000 mL/hr, Administer over 1 Hours, Once, On Wed07/10/25 at 1720, For 1 dose Start: 10-18-2024 End: 10-23-2024 10 mL, IntraVENous, Every 12 hours scheduled (2 times per day), First dose on Wed10/18/24 at 2115 Start: 10-18-2024 End: 10-23-2024 Start: 10-18-2024 End: 10-23-2024 Start: 10-18-2024 End: 10-18-2024 500 mL, IntraVENous, at 500 mL/hr, Administer over 1 Hours, Once, On Wed10/18/24 at 1645, For 1 dose Start: 01-22-2024 End: 01-22-2024 sodium chloride 0.9 % bolus 1,000 mL Start: 12-28-2023 End: 12-29-2023 sodium chloride 0.9 % bolus 1,000 mL Start: 12-09-2023 End: 12-09-2023 sodium chloride 0.9 % bolus 1,000 mL Start: 10-12-2023 End: 10-17-2023 take 10 mL intraluminal route every twelve hours 10 mL, IntraCATHeter, Every 12 hours, First dose on 10/12/23 at 1515, Administer to each lumen, regardless of whether or not fluids are infusing. Line Care. Use 10 mL or larger syringe. Start: 10-12-2023 End: 10-17-2023 10 mL, IntraCATHeter, PRN, l ine care, before blood draws, before and after infusion or medication administration, Starting on 10/12/23 at 1501, Use 10 mL or larger syringe. Start: 10-10-2023 End: 10-10-2023 take 75 mL intravenously every hour 75 mL/hr, IntraVENous, Continuous, Starting on 10/10/23 at 0015, For [...] (2 times per day), First dose on 09/18/20 at 0900 Start: 09-18-2020 take 10 mL intraveno us route once as needed 10 mL, Intravenous, PRN, Line Care, After every IV line use, Starting Wed09/18/20 at 0115 Start: 09-17-2020 End: 09-18-2020 0.9 % sodium chloride bolus Start: 09-17-2020 End: 09-18-2020 Intravenous, at 75 mL/hr, CONTINUOUS, Starting Wed09/18/20 at 0145 Start: 06-18-2019 End: 06-20-2019 0.9 % sodium chloride infusi on Start: 06-14-2019 sodium chlorid e flush 0.9 % injection 10 mL Start: 06-14-2019 End: 06-14-2019 0.9 % sodium chloride bolus sodium polystyrene sulfonate 250 mg/ml oral suspension (1 source) Start: 06-19-2019 End: 06-19-2019 sodium polystyrene (KAYEXALA TE) 15 GM/60ML suspension 15 g technetium Tc-99m sulfur colloid ([employer]) radio-isotope solution 1.1 millicurie (2 sources) Start: 12-23-2023 End: 12-23-2023 technetium Tc-99m sulfur col loid ([employer]SC) radio-isotope solution 1.1 millicurie vancomycin (VANCOCIN) 2,000 [...] Minutes, Every 24 hours, First dose on Tu10/12/23 at 1530, Mini-Bag Plus bag, Suspected Indication (Select all that apply): Bloodstream Infection Start: 10-11-2023 End: 10-12-2023 take 3000 mg intravenously every six hours 3,000 mg, IntraVENous, at 200 mL/hr, Administer over 30 Minutes, Every 6 hours, First dose on 10/11/23 at 0000, ADD-[place] bag, Suspected Indication (Select all that apply): [...] 2 diabetes mellitus with foot ulcer] Onset: 02-11-20 18 09-03-2018 Chronic Diabetes mellitus with complications (4 sources) Type 2 diabetes mellitus with diabetic neuropathy, unspecified; 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: [Type 2 diabetes mellitus with diabetic peripheral angiopathy without gangrene] Onset: 02-11-20 Diabetes mellitus without complication (16 sources) Type 2 diabetes mellitus; 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: [Type 2 diabetes mellitus without complications] Onset: 04-06-20 25 09-01-2018 Chronic Disorders of lipid metabolism (20 sources) Hyperlipidemia, unspecified; 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: [Mixed hyperlipidemia] Onset: 05-09-20 Chronic Disorders of teeth and jaw (1 source) Dental caries; 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: [Dental caries, unspecified] Episodic Essential hypertension (20 sources) Essential (primary) hypertension; 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: [Hypertensive disorder] Onset: 05-09-2009-27-2020 Chronic Fluid and electrolyte disorders (5 sources) Dehydration; 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: [Hyperkalemia] Onset: 03-25-2012-09-2023 Episodic Headache; including migraine (2 sources) Acute headache; 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: [Acute nonintractable headache, unspecified headache type] 07-10-2025 Episodic Hypertension with complications and secondary hypertension [...] sources) Postmenopausal bleeding; 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: [Postmenopausal bleeding] Onset: 05-16-2005-16-2019 Chronic Mood disorders (1 source) Major depressive disorder, single episode, unspecified; 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: [LIZZY DEPRESS D/O SINGLE EPIS UNS] Onset: 05-09-20 Other aftercare (2 sources) Long-term current use of antibiotic; 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: [long term care pharmacist (current) use of antibiotics] 10-12-2023 Episodic Other [...] lymphedema; 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: [Lymphedema, not elsewhere classified] Onset: 11-25-19 21 09-12-2018 Chronic Other diseases of veins and lymphatics [...] hyperplasia; 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]] Onset: 11-26-1911-26-2020 Chronic Other gastrointestinal disorders (2 sources) H/O: gallbladder disease; 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: [Personal history of other diseases of the digestive system] 11-12-2024 Episodic Other gastrointestinal disorders (1 source) Occult blood in stools; 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: [Other fecal abnormalities] 12-21-2024 Episodic Other gastrointestinal disorders (2 sources) Other fecal abnormalities; 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: [Other fecal abnormalities] Onset: 06-07-20 Episodic Other hematologic conditions (1 source) History of anemia; 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: [Personal history of diseases of the blood and blood-forming organs and certain disorders involving the immune mechanism] 12-21-2024 Episodic Other hematologic conditions (2 sources) Personal history of diseases of the blood and blood-forming organs and certain disorders involving the immune mechanism; 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: [Personal history of diseases of the blood and blood-forming organs and certain disorders involving the immune mechanism] Onset: 06-07-20 Episodic Other infections; including parasitic (1 source) [...] disorders (2 sources) Body mass index (BMI) 50.0-59.9, adult; 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: [Body mass index (BMI) 50.0-59.9, adult ([facility])] Onset: 06-07-20 Chronic Other nutritional; endocrine; and metabolic disorders [...] (adult) (pediatric)] 02-11-2024 Chronic Residual codes; unclassified (2 sources) Altered [...] transvestism; 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] Onset: 03-25-20 18 Chronic Unclassified (1 source) 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; 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: [NON-PRS C U OTH P R FT OTH SPEC SEV] Onset: 03-25-20 18 Unclassified (1 source) Transsexualism; 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: [TRANSSEXUALISM] Onset: 02-11-20 18 Unclassified (1 source) Wound Check Onset: 06-28-20 18 Unclassified (8 sources) History of amputation of right leg through femur; 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: [S/P AKA (above knee amputation) unilateral, right] 06-20-2019 Unclassified (1 source) Obesity, class 3 (HCC); 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: [Obesity, class 3 (HCC)] Onset: 04-06-20 25 Urinary tract infections (6 sources) Bacterial urinary infection; 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: [Pyelonephritis] 08-08-2023 Episodic Past or Other Problems Problem Classification Problem Date Documented Da te Episodic/Chronic Abdominal pain (20 sources) Generalized abdominal pain; 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: [Abdominal pain] Onset: Episodic Acute and unspecified renal failure (20 [...] Esophagitis; 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: [Esophagitis] Onset: 0 09-22-2020 Episodic Genitourinary symptoms and ill-defined conditions (9 sources) Endometrium thickened; 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: [Microalbuminuria] Onset: 5 11-26-2020 Episodic Intestinal obstruction without hernia (20 sources) Intestinal obstruction co-occurrent and due to decreased peristalsis; 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: [Ileus, unspecified] Onset: 0 09-27-2020 Episodic Nausea and vomiting (20 sources) Nausea and vomiting; 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: [Nausea] Onset: 0 09-22-2020 Episodic Nonspecific chest pain (20 sources) Chest pain; 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: [Chest pain, unspecified] Onset: 3 06-28-2023 Episodic Other aftercare (5 sources) long term care pharmacist (current) use of insulin; 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: [Other adjunct faculty for medical terminology (current) drug therapy] Onset: 8 Episodic Other bone disease and musculoskeletal deformities (20 sources) History of amputation of right leg through femur; 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: [Acquired absence of right leg above knee] Onset: 1 Resolved: 5 08-22-2022 Chronic Other gastrointestinal disorders (2 sources) Personal history of other diseases of the digestive system; 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: [Personal history of other diseases of the digestive system] Onset: 5 Episodic Residual codes; unclassified (20 [...] Unclassified (3 sources) PAD (peripheral artery disease) ([facility]) 02-01-2025 Unclassified (1 source) Obesity, class 3 ([facility]); 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: [Obesity, class 3 ([facility])] Onset: 5 Results Test Name Value Interpretation Reference Range Facility No Panel InformationOrdered By: Shirley Graves on 07-11-2025 P [place] 68 degrees [employer] Phone: IN Interval 182 ms [employer] Phone: QRS [place] -33 degrees [employer] Phone: QRSD Interval 113 ms [employer] Phone: QT Interval 420 ms [employer] Phone: QTC Interval 491 ms [employer] Work Phone: T Wave [place] 59 degrees [employer] Phone: [employer] Phone: No Panel Informationon 07-11 Shirley Graves D O - 07/11/2025 IMPRESSION: Sinus rhythm Abnormal R-wave progression, late transition Left ventricular hypertrophy Borderline prolonged QT interval Electronically Signed On 07-11-2025 00:56:44 EDT by Shirley Graves [employer] Vital signsOrdered By: Oscar Graves on 07-11-2025 Heart rate 82 /min bpm [employer] Phone: CBC W Auto Differential pane l (Bld)on 07-10-2025 Basophils (Bld) [#/Vol] 0 10*3/uL 0.0 - 0.2 10*3/uL [employer] Basophils/100 WBC (Bld) 0.2 % 0.0 - 2.0 % [employer] Eosinophils (Bld) [#/Vol] 0 10*3/uL 0.0 - 0.5 10*3/uL [facility] Eosinophils/100 WBC (Bld) 0.1 % 0.0 - 6.0 % [facility] Erythrocyte distribution width (RBC) [Ratio] 14.7 % 11.5 - 15.0 % [facility] Hematocrit (Bld) [Volume fraction] 36.8 % Male: 40.0-52.0 ; Female: 35.0-47.0 [facility] Hemoglobin (Bld) [Mass/Vol] 11.6 g/dL Low 11.7 - 18.0 g/dL [facility] Immature granulocytes (Bld) [#/Vol] 0.1 10*3/uL High NINF - 0.1 10*3/uL [facility] Immature granulocytes/100 WBC (Bld) 0.6 % 0.0 - 2.0 % [facility] Interpretation and review of laboratory results Abnormal [facility] Lymphocytes (Bld) [#/Vol] 1 10*3/uL 1.0 - 4.3 10*3/uL [facility] Lymphocytes/100 WBC (Bld) 7.5 % Low 15.0 - 45.0 % [facility] MCH (RBC) [Entitic mass] 26.3 pg 26.0 - 34.0 pg [facility] MCHC (RBC) [Mass/Vol] 31.5 % 30.5 - 36.0 % [facility] MCV (RBC) [Entitic vol] 83.4 fL 77.0 - 99.0 fL [facility] Monocytes (Bld) [#/Vol] 0.5 10*3/uL 0.0 - 0.9 10*3/uL [facility] Monocytes/100 WBC (Bld) 3.9 % Low 5.0 - 13.0 % [facility] Neutrophils (Bld) [#/Vol] 11.4 10*3/uL High 1.8 - 7.5 10*3/uL [facility] Neutrophils/100 WBC (Bld) 87.7 % High 38.0 - 82.0 % [facility] Nucleated RBC/100 WBC (Bld) [Ratio] 0 % [facility] Platelet mean volume (Bld) [Entitic vol] 9.7 fL 9.0 - 12.7 fL [facility] Platelets (Bld) [#/Vol] 317 10*3/uL 140 - 440 10*3/uL [facility] RBC (Bld) [#/Vol] 4.41 10*6/uL Male: 4.40-5.90; Female: 3.80-5.20 [facility] WBC (Bld) [#/Vol] 12.9 10*3/uL High 3.6 - 10.7 10*3/uL [facility] CT Abdomen and Pelvis W cont rast Erica 07-10-2025 1. No acute findings or significant interval change, including cholelithiasis. Please see above for further details. Report Dictated on Electronically Signed By: Joel Haddad MD Electronically Signed Date/Time: 07/10/2025 8:23 PM EDT [employer] Patient Name: WILL ALVARADO : 1965 Exam Date/Time: 07/10/2025 19:18 Procedure: CT ABDOMEN PELVIS W CONTRAST Ordering Provider: COLE BLAKE Reason For Exam: Abdominal pain, acute, nonlocalized CT ABDOMEN AND PELVIS WITH CONTRAST CLINICAL INDICATION: Abdominal pain, acute, nonlocalized TECHNIQUE: CT scan of the abdomen and pelvis, with IV contrast. Multiplanar reformations. Dose reduction was employed with automated exposure control. COMPARISON: November,. FINDINGS: Abdomen: Visualized lung bases again show 8 mm nodular density in the right middle lobe, unchanged. Mild left basilar atelectasis. Multiple, small gallstones again noted without significant pericholecystic fluid. Liver shows probable mild fatty infiltration without significant abnormality. Spleen without significant abnormality. Pancreas without significant abnormality. Kidneys without significant abnormality. Adrenal glands without significant abnormality. Pelvis: Bowel grossly unremarkable. Appendix within normal limits. No significant, free fluid or apparent adenopathy. Abdominal aorta is nonaneurysmal. Axial skeleton without acute abnormality. Diffuse degenerative change in the thoracic and lumbar spine, and bilateral hips. Thinning of the anterior abdominal musculature and anterior convex peritoneal margin again noted suggesting diastatic-type ventral hernia, similar. [facility] [employer] Joel Haddad MD - 07/10/2025 Patient Name: WILL JACINTO : [address] [facility]#: [id number] Exam Date/Time: 07/10/2025 19:18 Procedure: CT ABDOMEN PELVIS W CONTRAST Ordering Provider: COLE BLAKE Reason For Exam: Abdominal pain, acute, nonlocalized CT ABDOMEN AND PELVIS WITH CONTRAST CLINICAL INDICATION: Abdominal pain, acute, nonlocalized TECHNIQUE: CT scan of the abdomen and pelvis, with IV contrast. Multiplanar reformations. Dose reduction was employed with automated exposure control. COMPARISON: November,. FINDINGS: Abdomen: Visualized lung bases again show 8 mm nodular density in the right middle lobe, unchanged. Mild left basilar atelectasis. Multiple, small gallstones again noted without significant pericholecystic fluid. Liver shows probable mild fatty infiltration without significant abnormality. Spleen without significant abnormality. Pancreas without significant abnormality. Kidneys without significant abnormality. Adrenal glands without significant abnormality. Pelvis: Bowel grossly unremarkable. Appendix within normal limits. No significant, free fluid or apparent adenopathy. Abdominal aorta is nonaneurysmal. Axial skeleton without acute abnormality. Diffuse degenerative change in the thoracic and lumbar spine, and bilateral hips. Thinning of the anterior abdominal musculature and anterior convex peritoneal margin again noted suggesting diastatic-type ventral hernia, similar. IMPRESSION: 1. No acute findings or significant interval change, including cholelithiasis. Please see above for further details. Report Dictated on Electronically Signed By: Joel Haddad MD Electronically Signed Date/Time: 07/10/2025 8:23 PM EDT [facility] rocket staff Radiology Study observation (narrative) [facility] rocket staff CT Abdomen and Pelvis W cont rast IVOrdered By: Joel Haddad on 07-10-2025 [facility] rocket staff Work Phone: Comprehensive metabolic 1998 panelon 07-10-2025 Albumin [Mass/Vol] 3.3 g/dL Low 3.5 - 5.0 g/dL [facility] rocket staff ALP [Catalytic activity/Vol] 161 U/L [facility] rocket staff ALT [Catalytic activity/Vol] 17 U/L [facility] rocket staff Anion gap [Moles/Vol] 11 mmol/L 3 - 13 mmol/L [facility] staff AST [Catalytic activity/Vol] 16 U/L NINF - 34 U/L [facility] rocket staff Bilirubin [Mass/Vol] 0.6 mg/dL NINF - 1.2 mg/dL [facility] Calcium [Mass/Vol] 8.7 mg/dL 8.4 - 10. 2 mg/dL [facility] Chloride [Moles/Vol] 99 mmol/L 98 - 10 7 mmol/L [facility] CO2 [Moles/Vol] 29 mmol/L 22 - 29 mmol/L [facility] Creatinine [Mass/Vol] 0.76 mg/dL [facility] GFR/1.73 sq M.predicted (S/P/Bld) [Vol rate/Area] - PINF [facility] Comment on above: Calculation based on the Chronic Kidney Disease Epidemiology Collaboration (CKD-EPI) equation refit without adjustment for race Glucose [Mass/Vol] 322 mg/dL High 74 - 100 mg/dL [facility] Potassium [Moles/Vol] 4.5 mmol/L 3.5 - 5.1 mmol/L [facility] Comment on above: Plasma potassium helen ues may be up to 0.5 mmol/L lower than serum values. Protein [Mass/Vol] 7 g/dL 6.4 - 8.3 g/dL [facility] Sodium [Moles/Vol] 139 mmol/L 136 - 145 mmol/L [facility] Urea nitrogen [Mass/Vol] 19 mg/dL 9 - 23 mg/dL [facility] Laboratory - Chemistry and C hemistry - challengeon 07-10-2025 Beta hydroxybutyrate [Mass/Vol] 7.3 mg/dL High NINF - 2.8 mg/dL [facility] Lipase [Catalytic activity/Vol] 8 [facility] Laboratory - Chemistry and C hemistry - challengeOrdered By: Denia Dailey on 07-10-2025 Base excess Calc (BldV) [Moles/Vol] 6.8 mmol/L High -3.0 - 3.0 mmol/L [facility] CO2 (BldV) [Partial pressure] 58.4 mm[Hg] High [facility] CO2 [Moles/Vol] 35.4 mmol/L High 23.0 - 30.0 mmol/L [facility] HCO3 (Bld) [Moles/Vol] 33.6 mmol/L High 21.0 - 30.0 mmol/L [facility] Oxygen (BldV) [Partial pressure] 73 mm[Hg] mm Hg [facility] pH (BldV) 7.378 [pH] 7.320 - 7.420 [facility] Laboratory - Hematology and Cell countsOrdered By: Denia Dailey on 07-10-2025 Hemoglobin (Bld) [Mass/Vol] 12.9 g/dL 7.0 g/dl [facility] Lipase [Catalytic activity/V ol]on 07-10-2025 Interpretation and review of laboratory results Normal [facility] No Panel Informationon 07-10 2h Troponin HS (Serial 2nd Troponin) ng/L ng/L [facility] Comment on above: Delta value was unab le to be calculated as both baseline and serial troponin tests were below the level of quantitation. As both baseline and 2h troponin values are below the level of quantitation, acute cardiac injury is unlikely. [facility] Troponin HS Serial Baseline ng/L ng/L [facility] Comment on above: In individuals prese nting with symptoms > 2h, a baseline troponin <= 5 ng/L suggests acute cardiac injury is unlikely and further serial testing is generally not indicated. [facility] Interpretation and review of laboratory results Abnormal [facility] No Panel InformationOrdered By: Denia Dailey on 07-10-2025 Amount Of Oxygen 2L [facility] Interpretation and review of laboratory results Abnormal [facility] Source Of Oxygen Nasal Cannula (LPM) [facility] Assessment of oxygenation is best done with an arterial blood gas determination. Reference ranges for pO2, bicarbonate, and base excess are for mixed venous blood. Specimens drawn from a peripheral vein will often have higher values. [facility] Urinalysis complete panel (U )Ordered By: Erickson Olmedo on 07-10-2025 Bacteria LM.HPF (Urine sed) [#/Area] Few Abnormal Negative /HPF [facility] Bilirubin Ql (U) Negative Negative mg/dL [facility] Clarity (U) Clear Clear [facility] Color (U) Light Yellow Lt. Yellow [facility] Epithelial cells.squamous LM.HPF (Urine sed) [#/Area] 0-2 [facility] Glucose Ql (U) 300 mg/dL Abnormal Normal (<70) [facility] Hemoglobin Ql (U) Negative Negative mg/dL [facility] Interpretation and review of laboratory results Abnormal [facility] Ketones (U) [Mass/Vol] 10 mg/dL Abnormal Negative [facility] Leukocyte esterase Test strip Ql (U) 75 Abnormal Negative Kat/uL [facility] Mucus LM.HPF (Urine sed) [#/Area] Few Negative /LPF [facility] Nitrite Ql (U) Negative Negative [facility] pH (U) 5.0 [pH] 5.0 - 8.0 pH [facility] Protein (U) [Mass/Vol] 30 mg/dL Abnormal Negative [facility] RBC LM.HPF (Urine sed) [#/Area] 0-2 [facility] Specific gravity (U) [Rel density] 1.017 1.005 - 1.030 [facility] Urobilinogen (U) [Mass/Vol] Normal Normal (0-1) mg/dL [facility] WBC LM.HPF (Urine sed) [#/Area] 11-25 Abnormal [facility] This specimen has be en reflexed to urine culture. [facility] Urinalysis, Routine (Dipstic k)on 07-10-2025 BILIRUBIN URINE Negative Normal Negative [facility] Comment on above: Order Comment: SC CATHETER SPECIMEN Performed By: #### L 400.2010 #### [facility] [address] [place], [address] Clarity (U) Clear Normal Clear [facility] Comment on above: Order Comment: SC CATHETER SPECIMEN Performed By: #### L 400.2010 #### [facility] [address] [place], [address] Color (U) Yellow Normal Yellow [facility] Comment on above: Order Comment: SC CATHETER SPECIMEN Performed By: #### L 400.2010 #### [facility] [address] [place], [address] GLUCOSE, UR 50 mg/dl Abnormal Normal [facility] Comment on above: Order Comment: SC CATHETER SPECIMEN Performed By: #### L 400.2010 #### [facility] [address] [place], [address] KETONE UR Negative Normal Negative [facility] Comment on above: Order Comment: SC CATHETER SPECIMEN Performed By: #### L 400.2010 #### [facility] [address] [place], [address] LEUK ESTERASE 25 /ul Abnormal Negative [facility] Comment on above: Order Comment: SC CATHETER SPECIMEN Performed By: #### L 400.2010 #### [facility] [address] [place], [address] Nitrite Ql (U) Negative Normal Negative [facility] Comment on above: Order Comment: SC CATHETER SPECIMEN Performed By: #### L 400.2010 #### [facility] [address] [place], [address] OCCULT BLOOD-UR 10 /ul Abnormal Negative [facility] Comment on above: Order Comment: SC CATHETER SPECIMEN Performed By: #### L 400.2010 #### [facility] [address] [place], [address] pH UR 6.0 Normal 5.0 - 8.0 [facility] Comment on above: Order Comment: SC CATHETER SPECIMEN Performed By: #### L 400.2010 #### [facility] [address] [place], [address] PROT DIPSTX 100 mg/dl Abnormal Negative [facility] Comment on above: Order Comment: SC CATHETER SPECIMEN Performed By: #### L 400.2010 #### [facility] [address] [place], [address] SP.GR. DIPSTX 1.020 Normal 1.002-1.030 [facility] Comment on above: Order Comment: SC CATHETER SPECIMEN Performed By: #### L 400.2010 #### [facility] [address] [place], [address] UROBILI Normal Normal Normal [facility] Comment on above: Order Comment: SC CATHETER SPECIMEN Performed By: #### L 400.2010 #### [facility] [address] [place], [address] Vital signsOrdered By: Trever Dailey on 07-10-2025 Oxygen saturation in Venous blood 93.3 % [facility] CBC-Complete Blood Cnt No Di luis eduardoon 07-06-2025 Erythrocyte distribution width (RBC) [Ratio] 14.4 % Normal 11.6-14.6 [facility] Comment on above: Order Comment: 103-1 Performed By: #### L 100.0500, L500.4100, L500.4050 #### [facility] [address] [place], [address] Hematocrit (Bld) [Volume fraction] 35.3 % Low 37-47 [facility] Comment on above: Order Comment: 103-1 Performed By: #### L 100.0500, L500.4100, [id number] #### [facility] [address] [place], [address] Hemoglobin (Bld) [Mass/Vol] 10.9 g/dL Low 12.0-15.0 [facility] Comment on above: Order Comment: 103-1 Performed By: #### L 100.0500, L500.4100, L500.4050 #### [facility] [address] [place], [address] MCH (RBC) [Entitic mass] 26.0 pg Low 27.0-32.0 [facility] Comment on above: Order Comment: 103-1 Performed By: #### L 100.0500, L500.4100, L500.4050 #### [facility] [address] [place], [address] MCHC (RBC) [Mass/Vol] 30.9 g/dL Low 32-36 [facility] Comment on above: Order Comment: 103-1 Performed By: #### L 100.0500, L500.4100, [id number] #### [facility] [address] [place], [address] MCV (RBC) [Entitic vol] 84.0 fL Normal 81-99 [facility] Comment on above: Order Comment: 103-1 Performed By: #### L 100.0500, L500.4100, L500.4050 #### [facility] [address] [place], [address] Platelet mean volume (Bld) [Entitic vol] 10.4 fL Normal 6.2-12.0 [facility] Comment on above: Order Comment: 103-1 Performed By: #### L 100.0500, L500.4100, L500.4050 #### [facility] [address] [place], [address] Platelets (Bld) [#/Vol] 317 10*3/uL Normal 150-450 [facility] Comment on above: Order Comment: 103-1 Performed By: #### L 100.0500, L500.4100, L500.4050 #### [facility] [address] [place], [address] RBC (Bld) [#/Vol] 4.20 10*6/uL Normal 4.2-5.4 [facility] Comment on above: Order Comment: 103-1 Performed By: #### L 100.0500, L500.4100, [id number] #### [facility] [address] [place], [address] RDW SD 43.9 fl Normal 35.1-43.9 [facility] Comment on above: Order Comment: 103-1 Performed By: #### L 100.0500, L500.4100, [id number] #### [facility] [address] [place], [address] WBC (Bld) [#/Vol] 7.3 10*3/uL Normal 4.4-11.0 [facility] Comment on above: Order Comment: 103-1 Performed By: #### L 100.0500, L500.4100, [id number] #### [facility] [address] [place], [address] Comprehensive Metabolic Prof ilon 07-06-2025 Albumin [Mass/Vol] 3.7 g/dL Normal 3.5-5.0 [facility] Comment on above: Order Comment: 103-1 Performed By: #### L 100.0500, L500.4100, L500.4050 #### [facility] [address] [place], [address] Albumin/Globulin [Mass ratio] 1.3 {ratio} Normal 0.9-2.4 [facility] Comment on above: Order Comment: 103-1 Performed By: #### L 100.0500, L500.4100, L500.4050 #### [facility] [address] [place], [address] ALK PHOS 196 U/L High 35-104 [facility] Comment on above: Order Comment: 103-1 Performed By: #### L 100.0500, L500.4100, [id number] #### [facility] [address] [place], [address] ALT [Catalytic activity/Vol] 17 U/L Normal <=34 [facility] Comment on above: Order Comment: 103-1 Performed By: #### L 100.0500, L500.4100, L500.4050 #### [facility] [address] [place], [address] AST [Catalytic activity/Vol] 16 U/L Normal <=31 [facility] Comment on above: Order Comment: 103-1 Performed By: #### L 100.0500, L500.4100, L500.4050 #### [facility] [address] [place], [address] Bilirubin [Mass/Vol] 0.35 mg/dL Normal 0.00-1.30 [facility] Comment on above: Order Comment: 103-1 Performed By: #### L 100.0500, L500.4100, L500.4050 #### [facility] [address] [place], [address] BUN/CRE 30.4 RATIO High 10-20 [facility] Comment on above: Order Comment: 103-1 Performed By: #### L 100.0500, L500.4100, L500.4050 #### [facility] [address] [place], [address] Calcium [Mass/Vol] 9.0 mg/dL Normal 7.6-11.0 [facility] Comment on above: Order Comment: 103-1 Performed By: #### L 100.0500, L500.4100, L500.4050 #### [facility] [address] [place], [address] Chloride [Moles/Vol] 100 mmol/L Normal 98-108 [facility] Comment on above: Order Comment: 103-1 Performed By: #### L 100.0500, L500.4100, L500.4050 #### [facility] [address] [place], [address] CO2 [Moles/Vol] 27.9 mmol/L Normal 21.0-32.0 [facility] Comment on above: Order Comment: 103-1 Performed By: #### L 100.0500, L500.4100, L500.4050 #### [facility] [address] [place], [address] Creatinine [Mass/Vol] 0.65 mg/dL Low 0.70-1.20 [facility] Comment on above: Order Comment: 103-1 Performed By: #### L 100.0500, L500.4100, L500.4050 #### [facility] [address] [place], [address] GAP 9 Normal 5-15 [facility] Comment on above: Order Comment: 103-1 Performed By: #### L 100.0500, L500.4100, L500.4050 #### [facility] [address] [place], [address] GFR/1.73 sq M.predicted among non-blacks MDRD (S/P/Bld) [Vol rate/Area] 102 mL/min/{1.73_m2} Normal >60 [facility] Comment on above: Order Comment: 103-1 Result Comment: mL/m in/1.73m2 CKD-EPI Creatinine Equation (2020) Performed By: #### L 100.0500, L500.4100, L500.4050 #### [facility] [address] [place], [address] Globulin (S) [Mass/Vol] 2.9 g/dL Normal 2.2-4.2 [facility] Comment on above: Order Comment: 103-1 Performed By: #### L 100.0500, L500.4100, L500.4050 #### [facility] [address] [place], [address] Glucose [Mass/Vol] 166 mg/dL High 70-99 [facility] Comment on above: Order Comment: 103-1 Performed By: #### L 100.0500, L500.4100, L500.4050 #### [facility] [address] [place], [address] Potassium [Moles/Vol] 4.0 mmol/L Normal 3.3-5.1 [facility] Comment on above: Order Comment: 103-1 Performed By: #### L 100.0500, L500.4100, L500.4050 #### [facility] [address] [place], [address] Sodium [Moles/Vol] 137 mmol/L Normal 133-145 [facility] Comment on above: Order Comment: 103-1 Performed By: #### L 100.0500, L500.4100, L500.4050 #### [facility] [address] [place], [address] T PROT 6.6 g/dL Normal 5.9-8.4 [facility] Comment on above: Order Comment: 103-1 Performed By: #### L 100.0500, L500.4100, L500.4050 #### [facility] [address] [place], [address] Urea nitrogen [Mass/Vol] 20 mg/dL High 4-19 [facility] Comment on above: Order Comment: 103-1 Performed By: #### L 100.0500, L500.4100, L500.4050 #### [facility] [address] [place], [address] Hemoglobin A1con 07-06-2025 HbA1c (Bld) [Mass fraction] 7.5 % High <=5.6 [facility] Comment on above: Order Comment: 103-1 Result Comment: Norm al < 5.7 % Prediabetic 5.7 - 6.4 % Diabetic >or= 6.5 % Please note range changes. Performed By: #### L 100.0500, L500.4100, L500.4050 #### [facility] [address] [place], [address] Lipid Profileon 07-06-2025 CHOL:HDL 3.49 Normal [facility] Comment on above: Order Comment: 103-1 Performed By: #### L 100.0500, L500.4100, L500.4050 #### [facility] [address] [place], [address] Cholesterol [Mass/Vol] 162 mg/dL Normal <=200 [facility] Comment on above: Order Comment: 103-1 Result Comment: Chol esterol level, Desirable <200 mg/dL Borderline high cholesterol 200-239 mg/dL High cholesterol >=240 mg/dL Recommendations of the NCEP Adult Treatment Panel for the following risk-cutoff thresholds for the [place] population. Performed By: #### L 100.0500, L500.4100, L500.4050 #### [facility] [address] [place], [address] Cholesterol in HDL [Mass/Vol] 46 mg/dL Normal [facility] Comment on above: Order Comment: 103-1 Result Comment: Sophy onal Cholesterol Education Program (NCEP) guidelines: <40 mg/dL: Low HDL-cholesterol (major risk factor for CHD) >= 60 mg/dL: High HDL-cholesterol (negative risk factor for CHD) HDL-cholesterol is affected by a number of factors, e.g. smoking, exercise, hormones, sex and age. Performed By: #### L 100.0500, L500.4100, L500.4050 #### [facility] [address] [place], [address] Cholesterol in LDL [Mass/Vol] 88 mg/dL Normal [facility] Comment on above: Order Comment: 103-1 Result Comment: Bord lguqdl=086-911 mg/dL Higher Yxny=232 mg/dL or greater Friedwald Equation for LDL-C Performed By: #### L 100.0500, L500.4100, L500.4050 #### [facility] [address] [place], [address] Cholesterol in VLDL [Mass/Vol] 28 mg/dL Normal 5-40 [facility] Comment on above: Order Comment: 103-1 Performed By: #### L 100.0500, L500.4100, L500.4050 #### [facility] [address] [place], [address] Triglyceride [Mass/Vol] 139 mg/dL Normal [facility] Comment on above: Order Comment: 103-1 Result Comment: The drugs N-Acetylcysteine and Metamizole may falsely depress this assay. Normal range: <150 mg/dL Borderline High: 150-199 mg/dL High: 200-499 mg/dL Very High: >500 mg/dL Performed By: #### L 100.0500, L500.4100, L500.4050 #### [facility] [address] [place], [address] Microalb:Creat Ratio,Random URon 07-06-2025 Creatinine [Mass/Vol] 45.20 mg/dL Normal 28.00- 217.0 0 [facility] Comment on above: Performed By: #### L 100.0500, L500.4100, L500.4050 #### [facility] [address] [place], [address] MALB:CREAT 63.9 mg/g CRE High <30 mg/g CRE [facility] Comment on above: Performed By: #### L 100.0500, L500.4100, L500.4050 #### [facility] [address] [place], [address] MICROALBUMIN,UR 28.9 mg/L Normal <20 mg/L [facility] Comment on above: Performed By: #### L 100.0500, L500.4100, L500.4050 #### [facility] [address] [place], [address] 07-05-2025 36 Appointment schedule d on 07/26 at 11am [place] [id number] 36 Patient's BGL 04/26-07/02/2025 [place] [address] I called the facilit y to request another copy. [place] [id number] 36 Downloaded blood glu cose log and insulin administration MAR to media tab for the period of 06/08 through 06/29 for provider review. [place] [address] Spoke with Susan KIM at the [facility] and requested a new BGL with accompanying insulin administration record for 06/08-06/29 for provider review. States she will send it herself. Will watch for information and upload into media tab. [place] [id number] 36 The pages are cut of f I cannot see the doses completely Normal [address] 06-27-2025 36 Patient's BGL [address] 06-26-2025 36 Spoke with Sheri villafuerte the facility. She will re-fax the insulin administration records for 05/29-06/18 for comparison with the BG log sent previously. [address] 06-22-2025 36 Unfortunately half t he document is cut off I cannot see what the Humulin U-500 base dose is, its on 1 page On the second page I can see the sliding scale [place] [address] Scanned faxed MAR fr om facility into media tab for dates 06/08/25 - 06/22/[address] 06-21-2025 36 Spoke with Sheri villafuerte the facility who says she will fax the MAR record for 05/29 through 06/18 for comparison with the BGL by provider. Fax number provided was [phone] 06-20-2025 36 Spoke with RN caring for Maria Luisa at the facility regarding need for MAR for 05/29 through 06/18 to be faxed for provider review for use of SSI and any missed doses. She states she will fax the MAR records from 05/29 - 06/18 to [phone]. [place] [address] Please ask for MAR a nd med list I need to know if SS is ever used. Thank you [place] [id number] 36 Patient's BGL [place] [id number] 36 Faxed detailed insul in instructions to Nabil at the [facility] as requested. Confirmation received via email. See media tab. [place] [id number] 06-12-2025 36 Phoned [facility] and spoke with pt's nurse, Sheri. Released the message to her. Agrees to fax her BGL and pt's med rec in 2 weeks to our office [phone] [place] [address] 06-11-2025 36 Patient's BGL Normal [facility] Basic Metabolic Profile (BMP )on 06-11-2025 BUN/CRE 23.2 RATIO High 10-20 [facility] Comment on above: Order Comment: SC CATHETER SPECIMEN Performed By: #### L 400.2010 #### [facility] [address] [place], [address] Calcium [Mass/Vol] 9.1 mg/dL Normal 7.6-11.0 [facility] Comment on above: Order Comment: SC CATHETER SPECIMEN Performed By: #### L 400.2010 #### [facility] [address] [place], [address] Chloride [Moles/Vol] 104 mmol/L Normal 98-108 [facility] Comment on above: Order Comment: SC CATHETER SPECIMEN Performed By: #### L 400.2010 #### [facility] [address] [place], [address] CO2 [Moles/Vol] 29.0 mmol/L Normal 21.0-32.0 [facility] Comment on above: Order Comment: SC CATHETER SPECIMEN Performed By: #### L 400.2010 #### [facility] [address] [place], [address] Creatinine [Mass/Vol] 0.67 mg/dL Low 0.70-1.20 [facility] Comment on above: Order Comment: SC CATHETER SPECIMEN Performed By: #### L 400.2010 #### [facility] [address] [place], [address] GAP 9 Normal 5-15 [facility] Comment on above: Order Comment: SC CATHETER SPECIMEN Performed By: #### L 400.2010 #### [facility] [address] [place] [place], [address] GFR/1.73 sq M.predicted among non-blacks MDRD (S/P/Bld) [Vol rate/Area] 101 mL/min/{1.73_m2} Normal >60 [facility] Comment on above: Order Comment: SC CATHETER SPECIMEN Result Comment: mL/m in/1.73m2 CKD-EPI Creatinine Equation (2020) Performed By: #### L 400.2010 #### [facility] [address] [place], [address] Glucose [Mass/Vol] 136 mg/dL High 70-99 [facility] Comment on above: Order Comment: SC CATHETER SPECIMEN Performed By: #### L 400.2010 #### [facility] [address] [place], [address] Potassium [Moles/Vol] 4.3 mmol/L Normal 3.3-5.1 [facility] Comment on above: Order Comment: SC CATHETER SPECIMEN Performed By: #### L 400.2010 #### [facility] [address] [place], [address] Sodium [Moles/Vol] 142 mmol/L Normal 133-145 [facility] Comment on above: Order Comment: SC CATHETER SPECIMEN Performed By: #### L 400.2010 #### [facility] [address] [place], [address] Urea nitrogen [Mass/Vol] 16 mg/dL Normal 4-19 [facility] Comment on above: Order Comment: SC CATHETER SPECIMEN Performed By: #### L 400.2010 #### [facility] [address] [place], [address] CBC-Complete Blood Cnt No Di ffon 06-11-2025 Erythrocyte distribution width (RBC) [Ratio] 14.7 % High 11.6-14.6 [facility] Comment on above: Order Comment: SC CATHETER SPECIMEN Performed By: #### L 400.2010 #### [facility] [address] [place], [address] Hematocrit (Bld) [Volume fraction] 34.7 % Low 37-47 [facility] Comment on above: Order Comment: SC CATHETER SPECIMEN Performed By: #### L 400.2010 #### [facility] [address] [place], [address] Hemoglobin (Bld) [Mass/Vol] 10.5 g/dL Low 12.0-15.0 [facility] Comment on above: Order Comment: SC CATHETER SPECIMEN Performed By: #### L 400.2010 #### [facility] [address] [place], [address] MCH (RBC) [Entitic mass] 26.5 pg Low 27.0-32.0 [facility] Comment on above: Order Comment: SC CATHETER SPECIMEN Performed By: #### L 400.2010 #### [facility] [address] [place], [address] MCHC (RBC) [Mass/Vol] 30.3 g/dL Low 32-36 [facility] Comment on above: Order Comment: SC CATHETER SPECIMEN Performed By: #### L 400.2010 #### [facility] [address] [place], [address] MCV (RBC) [Entitic vol] 87.6 fL Normal 81-99 [facility] Comment on above: Order Comment: SC CATHETER SPECIMEN Performed By: #### L 400.2010 #### [facility] [address] [place], [address] Platelet mean volume (Bld) [Entitic vol] 10.3 fL Normal 6.2-12.0 [facility] Comment on above: Order Comment: SC CATHETER SPECIMEN Performed By: #### L 400.2010 #### [facility] [address] [place], [address] Platelets (Bld) [#/Vol] 295 10*3/uL Normal 150-450 [facility] Comment on above: Order Comment: SC CATHETER SPECIMEN Performed By: #### L 400.2010 #### [facility] [address] [place], [address] RBC (Bld) [#/Vol] 3.96 10*6/uL Low 4.2-5.4 [facility] Comment on above: Order Comment: SC CATHETER SPECIMEN Performed By: #### L 400.2010 #### [facility] [address] [place], [address] RDW SD 47.3 fl High 35.1-43.9 [facility] Comment on above: Order Comment: SC CATHETER SPECIMEN Performed By: #### L 400.2010 #### [facility] [address] [place], [address] WBC (Bld) [#/Vol] 7.6 10*3/uL Normal 4.4-11.0 [facility] Comment on above: Order Comment: SC CATHETER SPECIMEN Performed By: #### L 400.2010 #### [facility] [address] [place], [address] [id number] 06-07-2025 [id number] Normal [facility] 36on 06-07-2025 36 Patient's BGL Normal [facility] Anesthesia Noteon 06-07-2025 Anesthesia Note Normal [facility] Anesthesia Note Normal [facility] Nursing Noteon 06-07-2025 Nursing Note Normal [facility] Op Noteon 06-07-2025 Op Note Normal [facility] 36on 06-04-2025 36 Normal [facility] 36on 06-01-2025 36 Normal [facility] 36on 05-31-2025 36 Patient's BGL Normal [facility] 36 Normal [facility] 36on 05-18-2025 36 Called senior care and talk with nurse, she don't know and transfer to retail sales director, put me in hold for 25 min and never answer, if they call back please ask what they need . Thank you. [facility] 36 Not sure what is jayne ng asked. Did not order dietary restrictions, only recommendations. [facility] 36on 05-14-2025 36 Please advise! [facility] 36 Normal [facility] Basic Metabolic Profile (BMP )on 05-10-2025 BUN/CRE 25.7 RATIO High 10-20 [facility] Comment on above: Order Comment: SC CATHETER SPECIMEN Performed By: #### L 400.2010 #### [facility] [address] [place], [id number] Calcium [Mass/Vol] 8.8 mg/dL Normal 7.6-11.0 [facility] Comment on above: Order Comment: SC CATHETER SPECIMEN Performed By: #### L 400.2010 #### [facility] [address] [place], [address] Chloride [Moles/Vol] 103 mmol/L Normal 98-108 [facility] Comment on above: Order Comment: SC CATHETER SPECIMEN Performed By: #### L 400.2010 #### [facility] [address] [place], [address] CO2 [Moles/Vol] 26.2 mmol/L Normal 21.0-32.0 [facility] Comment on above: Order Comment: SC CATHETER SPECIMEN Performed By: #### L 400.2010 #### [facility] [address] [place], [id number] Creatinine [Mass/Vol] 0.64 mg/dL Low 0.70-1.20 [facility] Comment on above: Order Comment: SC CATHETER SPECIMEN Performed By: #### L 400.2010 #### [facility] [address] [place], [address] GAP 10 Normal 5-15 [facility] Comment on above: Order Comment: SC CATHETER SPECIMEN Performed By: #### L 400.2010 #### [facility] [address] [place], [address] GFR/1.73 sq M.predicted among non-blacks MDRD (S/P/Bld) [Vol rate/Area] 102 mL/min/{1.73_m2} Normal >60 [facility] Comment on above: Order Comment: SC CATHETER SPECIMEN Result Comment: mL/m in/1.73m2 CKD-EPI Creatinine Equation (2020) Performed By: #### L 400.2010 #### [facility] [address] [place], [address] Glucose [Mass/Vol] 202 mg/dL High 70-99 [facility] Comment on above: Order Comment: SC CATHETER SPECIMEN Performed By: #### L 400.2010 #### [facility] [address] [place], [address] Potassium [Moles/Vol] 4.5 mmol/L Normal 3.3-5.1 [facility] Comment on above: Order Comment: SC CATHETER SPECIMEN Performed By: #### L 400.2010 #### [facility] [address] [place], [address] Sodium [Moles/Vol] 140 mmol/L Normal 133-145 [facility] Comment on above: Order Comment: SC CATHETER SPECIMEN Performed By: #### L 400.2010 #### [facility] [address] [place], [address] Urea nitrogen [Mass/Vol] 16 mg/dL Normal 4-19 [facility] Comment on above: Order Comment: SC CATHETER SPECIMEN Performed By: #### L 400.2010 #### [facility] [address] [place], [address] CBC-Complete Blood Cnt No Di ffon 05-10-2025 Erythrocyte distribution width (RBC) [Ratio] 14.9 % High 11.6-14.6 [facility] Comment on above: Order Comment: SC CATHETER SPECIMEN Performed By: #### L 400.2010 #### [facility] [address] [place], [address] Hematocrit (Bld) [Volume fraction] 34.2 % Low 37-47 [facility] Comment on above: Order Comment: SC CATHETER SPECIMEN Performed By: #### L 400.2010 #### [facility] [address] [place], [address] Hemoglobin (Bld) [Mass/Vol] 10.5 g/dL Low 12.0-15.0 [facility] Comment on above: Order Comment: SC CATHETER SPECIMEN Performed By: #### L 400.2010 #### [facility] [address] [place], [address] MCH (RBC) [Entitic mass] 26.9 pg Low 27.0-32.0 [facility] Comment on above: Order Comment: SC CATHETER SPECIMEN Performed By: #### L 400.2010 #### [facility] [address] [place], [address] MCHC (RBC) [Mass/Vol] 30.7 g/dL Low 32-36 [facility] Comment on above: Order Comment: SC CATHETER SPECIMEN Performed By: #### L 400.2010 #### [facility] [address] [place], [address] MCV (RBC) [Entitic vol] 87.5 fL Normal 81-99 [facility] Comment on above: Order Comment: SC CATHETER SPECIMEN Performed By: #### L 400.2010 #### [facility] [address] [place], [address] Platelet mean volume (Bld) [Entitic vol] 10.1 fL Normal 6.2-12.0 [facility] Comment on above: Order Comment: SC CATHETER SPECIMEN Performed By: #### L 400.2010 #### [facility] [address] [place], [address] Platelets (Bld) [#/Vol] 318 10*3/uL Normal 150-450 [facility] Comment on above: Order Comment: SC CATHETER SPECIMEN Performed By: #### L 400.2010 #### [facility] [address] [place], [id number] RBC (Bld) [#/Vol] 3.91 10*6/uL Low 4.2-5.4 [facility] Comment on above: Order Comment: SC CATHETER SPECIMEN Performed By: #### L 400.2010 #### [facility] [address] [place], [place], [address] RDW SD 47.7 fl High 35.1-43.9 [facility] Comment on above: Order Comment: SC CATHETER SPECIMEN Performed By: #### L 400.2010 #### [facility] [address] [place], [address] WBC (Bld) [#/Vol] 6.5 10*3/uL Normal 4.4-11.0 [facility] Comment on above: Order Comment: SC CATHETER SPECIMEN Performed By: #### L 400.2010 #### [facility] [address] [place], [address] 05-07-2025 36 Called patient's [facility] and informed. [facility] 36 Continue current dos es Recommend future BGLs be sent in 4 week intervals. Or sooner if experiencing hypoglycemia or persistent elevations. Normal [facility] 36 Patient's BGL Normal [facility] 05-01-2025 36 Called patient nurse at senior care and informed. [facility] [address] [facility] 04-30-2025 36 Patient's BGL Normal [facility] 04-24-2025 36 Called patient nurse Juliane at senior care and informed! [facility] 04-23-2025 36 Patient's BGL Normal [facility] 04-20-2025 36 Called and relayed t he TE below to the pt's nurse. [facility] 04-19-2025 36 Continue current dos es. Future blood glucose log's requested to have [address] of [address] [facility] 04-17-2025 36 BGL downloaded in mo travis for your review. Thanks [facility] 04-06-2025 36 Faxed BG recommendat ion to [facility] at fax #: [phone]. Normal [facility] AMB POC HEMOGLOBIN A1Con HbA1c (Bld) [Mass fraction] 6.8 % Abnormal - 5.7 % [facility] HbA1c (Bld) [Mass fraction]o n 04-06-2025 Interpretation and review of laboratory results Abnormal [facility] Progress Noteon 04-06-2025 Progress Note Normal [facility] 36on 04-05-2025 36 Good Afternoon, I reviewed blood sugars for Maria Luisa, and they are mostly stable. There are no hypoglycemic events and blood sugars are not in the 300s on this log which is fantastic. No changes recommended at this time. Thanks! Normal [facility] 36 Patient's BGL Normal [facility] 36on 03-27-2025 36 Normal [facility] 36on 03-16-2025 36 Faxed recommendation s to [facility] fax #: [phone]. Normal [facility] 36on 03-15-2025 36 Reviewed BLG. Blood sugars are variable ranging between 117-359. No insulin dose changes. Blood sugars are improving. Normal [facility] 36on 03-14-2025 36 We received recent B GL's regarding the pt, please advise. Normal [facility] 36on 02-27-2025 36 Patient's BGL Normal [facility] Anion gap in Serum or Plasma Ordered By: Jared Guzman on 02-26-2025 Anion gap [Moles/Vol] 12 mmol/L 5-15 [facility] BUN/creatinine ratioOrdered By: Jared Guzman on 02-26-2025 Urea nitrogen/Creatinine [Mass ratio] 22.4 mg/mg High 10-20 [facility] Carbon dioxide, total [Moles /volume] in Central venous bloodOrdered By: Jared Guzman on 02-26-2025 CO2 [Moles/Vol] 25.7 mmol/L 21.0-32.0 [facility] Chloride assayOrdered By: Marcel Piper on 02-26-2025 Chloride [Moles/Vol] 101 mmol/L 98-108 [facility] GFR/1.73 sq M.predicted belinda g non-blacks MDRD (S/P/Bld) [Vol rate/Area]Ordered By: Jared Guzman on 02-26-2025 Estimated GFR (MDRD) Non-Af Amer 101 >60 [facility] Comment on above: mL/min/1.73m2 CKD-EP I Creatinine Equation (2020) Glomerular filtration rate ( GFR) estimation/1.73 sq m using serum, plasma, or whole bOrdered By: Jared Guzman on 02-26-2025 GFR/1.73 sq M.predicted among non-blacks MDRD (S/P/Bld) [Vol rate/Area] 101 mL/min/{1.73_m2} >60 [facility] Comment on above: mL/min/1.73m2 CKD-EP I Creatinine Equation (2020) Potassium (Unsp spec) [Mass/ Vol]Ordered By: Jared Guzman on 02-26-2025 Potassium [Moles/Vol] 4.0 mmol/L 3.3-5.1 [facility] Potassium measurement (mass/ volume)Ordered By: Jared Guzman on 02-26-2025 Potassium (Unsp spec) [Mass/Vol] 4.0 mmol/L 3.3-5.1 [facility] Renal Profileon 02-26-2025 Albumin [Mass/Vol] 3.7 g/dL Normal 3.5-5.0 [facility] Comment on above: Order Comment: 311.2 Performed By: #### L 500.3600 #### [facility] [address] [place], [address] BUN/CRE 22.4 RATIO High 10-20 [facility] Comment on above: Order Comment: 311.2 Performed By: #### L 500.3600 #### [facility] [address] [place], [address] Calcium [Mass/Vol] 9.1 mg/dL Normal 7.6-11.0 [facility] Comment on above: Order Comment: 311.2 Performed By: #### L 500.3600 #### [facility] [address] [place], [address] Chloride [Moles/Vol] 101 mmol/L Normal 98-108 [facility] Comment on above: Order Comment: 311.2 Performed By: #### L 500.3600 #### [facility] [address] [place], [address] CO2 [Moles/Vol] 25.7 mmol/L Normal 21.0-32.0 [facility] Comment on above: Order Comment: 311.2 Performed By: #### L 500.3600 #### [facility] [address] [place], [address] Creatinine [Mass/Vol] 0.68 mg/dL Low 0.70-1.20 [facility] Comment on above: Order Comment: 311.2 Performed By: #### L 500.3600 #### [facility] [address] [place], [address] GAP 12 Normal 5-15 [facility] Comment on above: Order Comment: 311.2 Performed By: #### L 500.3600 #### [facility] [address] [place], [place], [address] GFR/1.73 sq M.predicted among non-blacks MDRD (S/P/Bld) [Vol rate/Area] 101 mL/min/{1.73_m2} Normal >60 [facility] Comment on above: Order Comment: 311.2 Result Comment: mL/m in/1.73m2 CKD-EPI Creatinine Equation (2020) Performed By: #### L 500.3600 #### [facility] [address] [place], [address] Glucose [Mass/Vol] 211 mg/dL High 70-99 [facility] Comment on above: Order Comment: 311.2 Performed By: #### L 500.3600 #### [facility] [address] [place], [address] Phosphate [Mass/Vol] 4.2 mg/dL Normal 2.7-4.5 [facility] Comment on above: Order Comment: 311.2 Performed By: #### L 500.3600 #### [facility] [address] [place], [address] Potassium [Moles/Vol] 4.0 mmol/L Normal 3.3-5.1 [facility] Comment on above: Order Comment: 311.2 Performed By: #### L 500.3600 #### [facility] [address] [place], [address] Sodium [Moles/Vol] 139 mmol/L Normal 133-145 [facility] Comment on above: Order Comment: 311.2 Performed By: #### L 500.3600 #### [facility] [address] [place], [address] Urea nitrogen [Mass/Vol] 15 mg/dL Normal 4-19 [facility] Comment on above: Order Comment: 311.2 Performed By: #### L 500.3600 #### [facility] [address] [place], [address] Serum creatinine measurement (mass/volume)Ordered By: Jared Guzman on 02-26-2025 Creatinine [Mass/Vol] 0.68 mg/dL Low 0.70-1.20 [facility] Serum glucose measurement (m ass/volume)Ordered By: Jared Guzman on 02-26-2025 Glucose [Mass/Vol] 211 mg/dL High 70-99 [facility] Serum or plasma albumin mauricio urement (mass/volume)Ordered By: Jared Guzman on 02-26-2025 Albumin [Mass/Vol] 3.7 g/dL 3.5-5.0 [facility] Serum or plasma calcium mauricio urement (mass/volume)Ordered By: Jared Guzman on 02-26-2025 Calcium [Mass/Vol] 9.1 mg/dL 7.6-11.0 [facility] Serum or plasma urea nitroge n measurement (mass/volume)Ordered By: Jared Guzman on 02-26-2025 Urea nitrogen [Mass/Vol] 15 mg/dL 4-19 [facility] Serum phosphorus measurement Ordered By: Jared Guzman on 02-26-2025 Phosphorus Level 4.2 mg/dL 2.7-4.5 [facility] Sodium levelOrdered By: Main Guzman on 02-26-2025 Sodium [Moles/Vol] 139 mmol/L 133-145 [facility] 36on 02-16-2025 36 Faxed letter to [facility] at fax #: [phone]. [facility] 3602-15-[address] [facility] [address] [facility] 02-13-2025 36 Called [facility] to offer cancel the [facility] visit per provider. Visit canceled. [facility] 02-12-2025 36 Nurse from [facility] called to schedule Annual follow up. Follow up scheduled for 03/02/2025. Patient is non weight bearing and uses a [facility]. Further question is whether they bring with [facility] or ambulance cot. Please advise. [facility] 02-09-2025 36 Faxed new orders to [facility] at fax #: [phone]. Normal [facility] No Panel InformationOrdered By: Corin Man on 02-09-2025 Left [facility] BP [facility] toe pressure [facility]: Right arm BP 145 [facility] No Panel Informationon 02-09 Left side [...] cuff method used due to body habitus. Typewriter Ribbon Winder Details A spectral Doppler analysis ultrasound was performed. Pulsed volume recording (PVR) and photo plethysmography was performed. The exam was performed with the patient in the supine position. Overall the study quality was adequate. Study was technically difficult due to: body habitus. CV [facility] 36on 02-08-2025 36 Normal [facility] 36 [facility] Radiology called stating that CT chest wo IV contrast order will before its completion. Requested new order to be placed. Please advise. Normal [facility] 36on 02-07-2025 [address] [facility] Anion gap in Serum or Plasma Ordered By: Jared Guzman on 02-07-2025 Anion gap [Moles/Vol] 10 mmol/L 5-15 [facility] BUN/creatinine ratioOrdered By: Jared Guzman on 02-07-2025 Urea nitrogen/Creatinine [Mass ratio] 21.4 mg/mg High 10-20 [facility] Basic Metabolic Profile (BMP )on 02-07-2025 BUN/CRE 21.4 RATIO High 10-20 [facility] Comment on above: Order Comment: SC CATHETER SPECIMEN Performed By: #### L 400.2010 #### [facility] [address] [place] [place], [address] Calcium [Mass/Vol] 9.0 mg/dL Normal 7.6-11.0 [facility] Comment on above: Order Comment: SC CATHETER SPECIMEN Performed By: #### L 400.2010 #### [facility] [address] [place], [address] Chloride [Moles/Vol] 102 mmol/L Normal 98-108 [facility] Comment on above: Order Comment: SC CATHETER SPECIMEN Performed By: #### L 400.2010 #### [facility] [address] [place], [address] CO2 [Moles/Vol] 27.2 mmol/L Normal 21.0-32.0 [facility] Comment on above: Order Comment: SC CATHETER SPECIMEN Performed By: #### L 400.2010 #### [facility] [address] [place], [address] Creatinine [Mass/Vol] 0.56 mg/dL Low 0.70-1.20 [facility] Comment on above: Order Comment: SC CATHETER SPECIMEN Performed By: #### L 400.2010 #### [facility] [address] [place], [address] GAP 10 Normal 5-15 [facility] Comment on above: Order Comment: SC CATHETER SPECIMEN Performed By: #### L 400.2010 #### [facility] [address] [place], [address] GFR/1.73 sq M.predicted among non-blacks MDRD (S/P/Bld) [Vol rate/Area] 106 mL/min/{1.73_m2} Normal >60 [facility] Comment on above: Order Comment: SC CATHETER SPECIMEN Result Comment: mL/m in/1.73m2 CKD-EPI Creatinine Equation (2020) Performed By: #### L 400.2010 #### [facility] [address] [place], [address] Glucose [Mass/Vol] 113 mg/dL High 70-99 [facility] Comment on above: Order Comment: SC CATHETER SPECIMEN Performed By: #### L 400.2010 #### [facility] [address] [place], [address] Potassium [Moles/Vol] 4.2 mmol/L Normal 3.3-5.1 [facility] Comment on above: Order Comment: SC CATHETER SPECIMEN Performed By: #### L 400.2010 #### [facility] [address] [place], [address] Sodium [Moles/Vol] 140 mmol/L Normal 133-145 [facility] Comment on above: Order Comment: SC CATHETER SPECIMEN Performed By: #### L 400.2010 #### [facility] [address] [place], [address] Urea nitrogen [Mass/Vol] 12 mg/dL Normal 4-19 [facility] Comment on above: Order Comment: SC CATHETER SPECIMEN Performed By: #### L 400.2010 #### [facility] [address] [place], [address] CBC-Complete Blood Cnt No Di ffon 02-07-2025 Erythrocyte distribution width (RBC) [Ratio] 14.5 % Normal 11.6-14.6 [facility] Comment on above: Order Comment: SC CATHETER SPECIMEN Performed By: #### L 400.2010 #### [facility] [address] [place], [address] Hematocrit (Bld) [Volume fraction] 34.7 % Low 37-47 [facility] Comment on above: Order Comment: SC CATHETER SPECIMEN Performed By: #### L 400.2010 #### [facility] [address] [place], [address] Hemoglobin (Bld) [Mass/Vol] 11.1 g/dL Low 12.0-15.0 [facility] Comment on above: Order Comment: SC CATHETER SPECIMEN Performed By: #### L 400.2010 #### [facility] [address] [place], [address] MCH (RBC) [Entitic mass] 27.1 pg Normal 27.0-32.0 [facility] Comment on above: Order Comment: SC CATHETER SPECIMEN Performed By: #### L 400.2010 #### [facility] [address] [place], [address] MCHC (RBC) [Mass/Vol] 32.0 g/dL Normal 32-36 [facility] Comment on above: Order Comment: SC CATHETER SPECIMEN Performed By: #### L 400.2010 #### [facility] [address] [place], [address] MCV (RBC) [Entitic vol] 84.6 fL Normal 81-99 [facility] Comment on above: Order Comment: SC CATHETER SPECIMEN Performed By: #### L 400.2010 #### [facility] [address] [place], [address] Platelet mean volume (Bld) [Entitic vol] 10.3 fL Normal 6.2-12.0 [facility] Comment on above: Order Comment: SC CATHETER SPECIMEN Performed By: #### L 400.2010 #### [facility] [address] [place], [address] Platelets (Bld) [#/Vol] 353 10*3/uL Normal 150-450 [facility] Comment on above: Order Comment: SC CATHETER SPECIMEN Performed By: #### L 400.2010 #### [facility] [address] [place], [address] RBC (Bld) [#/Vol] 4.10 10*6/uL Low 4.2-5.4 [facility] Comment on above: Order Comment: SC CATHETER SPECIMEN Performed By: #### L 400.2010 #### [facility] [address] [place], [address] RDW SD 44.6 fl High 35.1-43.9 [facility] Comment on above: Order Comment: SC CATHETER SPECIMEN Performed By: #### L 400.2010 #### [facility] [address] [place], [address] WBC (Bld) [#/Vol] 8.1 10*3/uL Normal 4.4-11.0 [facility] Comment on above: Order Comment: SC CATHETER SPECIMEN Performed By: #### L 400.2010 #### [facility] [address] [place], [address] Carbon dioxide, total [Moles /volume] in Central venous bloodOrdered By: Jared Guzman on 02-07-2025 CO2 [Moles/Vol] 27.2 mmol/L 21.0-32.0 [facility] Chloride assayOrdered By: Marcel Piper on 02-07-2025 Chloride [Moles/Vol] 102 mmol/L 98-108 [facility] Erythrocyte distribution wid th (RBC) [Ratio]Ordered By: Jared Guzman on 02-07-2025 Erythrocyte distribution width (RBC) [Entitic vol] 44.6 fL High 35.1-43.9 [facility] Erythrocyte distribution wid th ratioOrdered By: Jared Guzman on 02-07-2025 Erythrocyte distribution width (RBC) [Ratio] 14.5 % 11.6-14.6 [facility] Erythrocyte distribution wid th standard deviationOrdered By: Jared Guzman on 02-07-2025 Erythrocyte distribution width (RBC) [Ratio] 44.6 fl High 35.1-43.9 [facility] GFR/1.73 sq M.predicted belinda g non-blacks MDRD (S/P/Bld) [Vol rate/Area]Ordered By: Jared Guzman on 02-07-2025 Estimated GFR (MDRD) Non-Af Amer 106 >60 [facility] Comment on above: mL/min/1.73m2 CKD-EP I Creatinine Equation (2020) Glomerular filtration rate ( GFR) estimation/1.73 sq m using serum, plasma, or whole bOrdered By: Jared Guzman on 02-07-2025 GFR/1.73 sq M.predicted among non-blacks MDRD (S/P/Bld) [Vol rate/Area] 106 mL/min/{1.73_m2} >60 [facility] Comment on above: mL/min/1.73m2 CKD-EP I Creatinine Equation (2020) Hematocrit Auto (Bld) [Volum e fraction]Ordered By: Jared Guzman on 02-07-2025 Hematocrit (Bld) [Volume fraction] 34.7 % Low 37-47 [facility] Hemoglobin measurementOrdere d By: Jared Guzman on 02-07-2025 Hemoglobin (Bld) [Mass/Vol] 11.1 g/dL Low 12.0-15.0 [facility] MCV (mean corpuscular volume ) determinationOrdered By: Jared Guzman on 02-07-2025 MCV (RBC) [Entitic vol] 84.6 fL 81-99 [facility] Mean corpuscular hemoglobin (MCH) determinationOrdered By: Jared Guzman on 02-07-2025 MCH (RBC) [Entitic mass] 27.1 pg 27.0-32.0 [facility] Mean corpuscular hemoglobin concentration (MCHC) determinationOrdered By: Jared Guzman on 02-07-2025 MCHC (RBC) [Mass/Vol] 32.0 g/dL 32-36 [facility] Mean platelet volume determi nationOrdered By: Jared Guzman on 02-07-2025 Platelet mean volume (Bld) [Entitic vol] 10.3 fL 6.2-12.0 [facility] Platelet countOrdered By: Marcel Piper on 02-07-2025 Platelets (Bld) [#/Vol] 353 10*3/uL 150-450 [facility] Potassium (Unsp spec) [Mass/ Vol]Ordered By: Jared Guzman on 02-07-2025 Potassium [Moles/Vol] 4.2 mmol/L 3.3-5.1 [facility] Potassium measurement (mass/ volume)Ordered By: Jared Guzman on 02-07-2025 Potassium (Unsp spec) [Mass/Vol] 4.2 mmol/L 3.3-5.1 [facility] RBC Auto (Bld) [#/Vol]Ordere d By: Jared Guzman on 02-07-2025 RBC (Bld) [#/Vol] 4.10 10*6/uL Low 4.2-5.4 [facility] Serum creatinine measurement (mass/volume)Ordered By: Jared Guzman on 02-07-2025 Creatinine [Mass/Vol] 0.56 mg/dL Low 0.70-1.20 [facility] Serum glucose measurement (m ass/volume)Ordered By: Jared Guzman on 02-07-2025 Glucose [Mass/Vol] 113 mg/dL High 70-99 [facility] Serum or plasma calcium mauricio urement (mass/volume)Ordered By: Jared Guzman on 02-07-2025 Calcium [Mass/Vol] 9.0 mg/dL 7.6-11.0 [facility] Serum or plasma urea nitroge n measurement (mass/volume)Ordered By: Jared Guzman on 02-07-2025 Urea nitrogen [Mass/Vol] 12 mg/dL 4-19 [facility] Sodium levelOrdered By: Main Guzman on 02-07-2025 Sodium [Moles/Vol] 140 mmol/L 133-145 [facility] White blood cell (WBC) count Ordered By: Jared Guzman on 02-07-2025 WBC (Bld) [#/Vol] 8.1 10*3/uL 4.4-11.0 [facility] Progress Noteon 02-01-2025 Progress Note Normal [facility] 01-31-2025 36 Called [facility] s/w Suma released message as written, she stated that she understood. Normal [facility] 01-30-2025 36 Normal [facility] 01-29-2025 36 Patient's BGL Normal [facility] 01-19-2025 36 Faxed orders to [facility] at fax #: [phone]. Normal [facility] 01-17-2025 36 Normal [facility] 01-15-2025 36 Patients BGL Normal [facility] 01-11-2025 36 Called [facility] s/w Sanjana released message as written, she stated that she understood and had no questions. Normal [facility] 01-10-2025 36 Normal [facility] 3601-08-2025 36 Patient's BGL Normal [facility] 01-02-2025 36 Labs Noted Normal [facility] 01-01-2025 36 Requested BGLs and a recent CMP was received , please advise. [facility] 01-01-2025 37 Please send Ophthalmology Note once completed this year. Please note if any insulin doses are held on blood log. Normal [facility] Progress Noteon 01-01-2025 Progress Note Normal [facility] 3612-29-2024 36 Called [facility] s/w Ninfa released message as written, no insulin has been held. Normal [facility] 36on 12-28-2024 36 Called the nursing facility to schedule an appointment and spoke with Nabil, who stated that the pt nurse is not in today and that she will have her call our office when she is in. TY [facility] 36 ----- Message from JEREMY Bloom CNP sent at 12/21/2024 4:00 PM EST ----- Please schedule patient for EGD and colonoscopy-[facility] endoscopy. Please call nursing facility to schedule appointment. Thank you. [facility] 36on 12-27-[address] [facility] Albumin to globulin ratioOrd ered By: Jared Guzman on 12-27-2024 Albumin/Globulin [Mass ratio] 0.8 {ratio} Low 0.9-2.4 [facility] Bilirubin, totalOrdered By: Jared Guzman on 12-27-2024 Bilirubin [Mass/Vol] 0.40 mg/dL 0.20-1.00 [facility] Comment on above: For patients on eltr ombopag therapy, use of Dimension [place] TBIL is not recommended. Blood urea nitrogen (BUN)/cr eatinine ratioOrdered By: Jared Guzman on 12-27-2024 Urea nitrogen/Creatinine [Mass ratio] 14.4 mg/mg 10-20 [facility] CBC-Complete Blood Cnt No Di ffon 12-27-2024 Erythrocyte distribution width (RBC) [Ratio] 14.6 % Normal 11.6-14.6 [facility] Comment on above: Order Comment: 103-1 Performed By: #### L 100.0500, L500.4100, L500.4050 #### [facility] [address] [place], [address] Hematocrit (Bld) [Volume fraction] 34.5 % Low 37-47 [facility] Comment on above: Order Comment: 103-1 Performed By: #### L 100.0500, L500.4100, L500.4050 #### [facility] [address] [place], [address] Hemoglobin (Bld) [Mass/Vol] 10.9 g/dL Low 12.0-15.0 [facility] Comment on above: Order Comment: 103-1 Performed By: #### L 100.0500, L500.4100, L500.4050 #### [facility] [address] [place], [address] MCH (RBC) [Entitic mass] 27.2 pg Normal 27.0-32.0 [facility] Comment on above: Order Comment: 103-1 Performed By: #### L 100.0500, L500.4100, L500.4050 #### [facility] [address] [place], [address] MCHC (RBC) [Mass/Vol] 31.6 g/dL Low 32-36 [facility] Comment on above: Order Comment: 103-1 Performed By: #### L 100.0500, L500.4100, L500.4050 #### [facility] [address] [place], [address] MCV (RBC) [Entitic vol] 86.0 fL Normal 81-99 [facility] Comment on above: Order Comment: 103-1 Performed By: #### L 100.0500, L500.4100, L500.4050 #### [facility] [address] [place], [address] Platelet mean volume (Bld) [Entitic vol] 10.3 fL Normal 6.2-12.0 [facility] Comment on above: Order Comment: 103-1 Performed By: #### L 100.0500, L500.4100, L500.4050 #### [facility] [address] [place], [address] Platelets (Bld) [#/Vol] 350 10*3/uL Normal 150-450 [facility] Comment on above: Order Comment: 103-1 Performed By: #### L 100.0500, L500.4100, L500.4050 #### [facility] [address] [place], [address] RBC (Bld) [#/Vol] 4.01 10*6/uL Low 4.2-5.4 [facility] Comment on above: Order Comment: 103-1 Performed By: #### L 100.0500, L500.4100, L500.4050 #### [facility] [address] [place], [address] RDW SD 45.5 fl High 35.1-43.9 [facility] Comment on above: Order Comment: 103-1 Performed By: #### L 100.0500, L500.4100, L500.4050 #### [facility] [address] [place], [address] WBC (Bld) [#/Vol] 6.9 10*3/uL Normal 4.4-11.0 [facility] Comment on above: Order Comment: 103-1 Performed By: #### L 100.0500, L500.4100, L500.4050 #### [facility] [address] [place], [address] Carbon dioxide measurementOr dered By: Jared Guzman on 12-27-2024 CO2 [Moles/Vol] 29.0 mmol/L 21.0-32.0 [facility] Chloride measurementOrdered By: Jared Guzman on 12-27-2024 Chloride [Moles/Vol] 104 mmol/L 98-107 [facility] Comprehensive Metabolic Prof ilon 12-27-2024 Albumin [Mass/Vol] 2.8 g/dL Low 3.2-5.0 [facility] Comment on above: Order Comment: 103-1 Performed By: #### L 100.0500, L500.4100, L500.4050 #### [facility] [address] [place], [address] Albumin/Globulin [Mass ratio] 0.8 {ratio} Low 0.9-2.4 [facility] Comment on above: Order Comment: 103-1 Performed By: #### L 100.0500, L500.4100, L500.4050 #### [facility] [address] [place], [address] ALK P 152 U/L High 45-117 [facility] Comment on above: Order Comment: 103-1 Performed By: #### L 100.0500, L500.4100, L500.4050 #### [facility] [address] [place], [address] ALT [Catalytic activity/Vol] 32 U/L Normal 13-56 [facility] Comment on above: Order Comment: 103-1 Performed By: #### L 100.0500, L500.4100, L500.4050 #### [facility] [address] [place], [address] AST [Catalytic activity/Vol] 19 U/L Normal 15-37 [facility] Comment on above: Order Comment: 103-1 Performed By: #### L 100.0500, L500.4100, L500.4050 #### [facility] [address] [place], [address] Bilirubin [Mass/Vol] 0.40 mg/dL Normal 0.20-1.00 [facility] Comment on above: Order Comment: 103-1 Result Comment: For patients on eltrombopag therapy, use of Dimension [place] TBIL is not recommended. Performed By: #### L 100.0500, L500.4100, L500.4050 #### [facility] [address] [place], [address] BUN/CRE 14.4 RATIO Normal 10-20 [facility] Comment on above: Order Comment: 103-1 Performed By: #### L 100.0500, L500.4100, L500.4050 #### [facility] [address] [facility], [id number] CA,Total 9.4 mg/dL Normal 8.5-10.1 [facility] Comment on above: Order Comment: 103-1 Performed By: #### L 100.0500, L500.4100, L500.4050 #### [facility] [address] [place], [address] Chloride [Moles/Vol] 104 mmol/L Normal 98-107 [facility] Comment on above: Order Comment: 103-1 Performed By: #### L 100.0500, L500.4100, L500.4050 #### [facility] [address] [place], [address] CO2 [Moles/Vol] 29.0 mmol/L Normal 21.0-32.0 [facility] Comment on above: Order Comment: 103-1 Performed By: #### L 100.0500, L500.4100, L500.4050 #### [facility] [address] [place], [address] Creatinine [Mass/Vol] 0.56 mg/dL Normal 0.55-1.02 [facility] Comment on above: Order Comment: 103-1 Result Comment: The validity of the calculated GFR GFRAA in patients over 70 years has not been determined. Clinical correlation is essential. Performed By: #### L 100.0500, L500.4100, L500.4050 #### [facility] [address] [place], [address] EST GFR - AA 144 mL/min Normal >60 [facility] Comment on above: Order Comment: 103-1 Result Comment: Afri can Vincentian GFR Calc Performed By: #### L 100.0500, L500.4100, L500.4050 #### [facility] [address] [place], [address] GAP 6 Normal 5-15 [facility] Comment on above: Order Comment: 103-1 Performed By: #### L 100.0500, L500.4100, L500.4050 #### [facility] [address] [place], [address] GFR/1.73 sq M.predicted among non-blacks MDRD (S/P/Bld) [Vol rate/Area] 119 mL/min/{1.73_m2} Normal >60 [facility] Comment on above: Order Comment: Result Comment: Non- GFR Calc Performed By: #### L 100.0500, L500.4100, L500.4050 #### [facility] [address] [place], [address] Globulin (S) [Mass/Vol] 3.4 g/dL Normal 2.2-4.2 [facility] Comment on above: Order Comment: Performed By: #### L 100.0500, L500.4100, L500.4050 #### [facility] [address] [place], [address] Glucose [Mass/Vol] 149 mg/dL High 74-106 [facility] Comment on above: Order Comment: Result Comment: Fast ing Glucose result greater than or equal to 126 mg/dL suggests DIABETES MELLITUS per A.D.A. criteria. Performed By: #### L 100.0500, L500.4100, L500.4050 #### [facility] [address] [place], [address] Potassium [Moles/Vol] 3.9 mmol/L Normal 3.5-5.1 [facility] Comment on above: Order Comment: Performed By: #### L 100.0500, L500.4100, L500.4050 #### [facility] [address] [place], [address] Sodium [Moles/Vol] 139 mmol/L Normal 136-145 [facility] Comment on above: Order Comment: 103-1 Performed By: #### L 100.0500, L500.4100, L500.4050 #### [facility] [address] [place], [address] T PROT 6.2 g/dL Low 6.4-8.2 [facility] Comment on above: Order Comment: 103-1 Performed By: #### L 100.0500, L500.4100, L500.4050 #### [facility] [address] [place], [address] Urea nitrogen [Mass/Vol] 8 mg/dL Normal 7-18 [facility] Comment on above: Order Comment: 103-1 Performed By: #### L 100.0500, L500.4100, L500.4050 #### [facility] [address] [place], [address] Erythrocyte distribution wid th ratioOrdered By: Jared Guzman on 12-27-2024 Erythrocyte distribution width (RBC) [Ratio] 14.6 % 11.6-14.6 [facility] Erythrocyte distribution wid th standard deviationOrdered By: Jared Guzman on 12-27-2024 Erythrocyte distribution width (RBC) [Entitic vol] 45.5 fL High 35.1-43.9 [facility] Erythrocyte distribution width (RBC) [Ratio] 45.5 fl High 35.1-43.9 [facility] Estimated glomerular filtrat ion rate (GFR) AmericanOrdered By: Jared Guzman on 12-27-2024 Estimated GFR (MDRD) Amer 144 mL/min >60 [facility] Comment on above: GFR Calc Glomerular filtration rate ( GFR) estimationOrdered By: Jared Guzman on 12-27-2024 Estimated GFR (MDRD) Non-Af Amer 119 mL/min >60 [facility] Comment on above: Non- GFR Calc GFR/1.73 sq M.predicted among non-blacks MDRD (S/P/Bld) [Vol rate/Area] 119 mL/min/{1.73_m2} >60 [facility] Comment on above: Non- GFR Calc Glucose measurementOrdered B y: Jared Guzman on 12-27-2024 Glucose [Mass/Vol] 149 mg/dL High 74-106 [facility] Comment on above: Fasting Glucose resu lt greater than or equal to 126 mg/dL suggests DIABETES MELLITUS per A.D.A. criteria. Hematocrit Auto (Bld) [Volum e fraction]Ordered By: Jared Guzman on 12-27-2024 Hematocrit (Bld) [Volume fraction] 34.5 % Low 37-47 [facility] Hemoglobin measurementOrdere d By: Jared Guzman on 12-27-2024 Hemoglobin (Bld) [Mass/Vol] 10.9 g/dL Low 12.0-15.0 [facility] High density lipoprotein (HD L) measurementOrdered By: Jared Guzman on 12-27-2024 Cholesterol in HDL [Mass/Vol] 43 mg/dL >40 [facility] Comment on above: The drugs N-Acetylcy steine and Metamizole may falsely depress this assay. Reference Range HDL <40 mg/dL Low HDL Cholesterol HDL >or= 60 mg/dL High HDL Cholesterol Laboratory - Chemistry and C hemistry - challengeOrdered By: Jared Guzman on 12-27-2024 AST [Catalytic activity/Vol] 19 U/L 15-37 [facility] Lipid Profileon 12-27-2024 Cholesterol [Mass/Vol] 178 mg/dL Normal 200 [facility] Comment on above: Order Comment: 103-1 Result Comment: <200 mg/dL Desirable 200-240 mg/dL Borderline >240 mg/dL High Risk Performed By: #### L 100.0500, L500.4100, L500.4050 #### [facility] [address] [place], [address] Cholesterol in HDL [Mass/Vol] 43 mg/dL Normal [facility] Comment on above: Order Comment: 103-1 Result Comment: The drugs N-Acetylcysteine and Metamizole may falsely depress this assay. Reference Range HDL <40 mg/dL Low HDL Cholesterol HDL >or= 60 mg/dL High HDL Cholesterol Performed By: #### L 100.0500, L500.4100, L500.4050 #### [facility] [address] [place], [address] Cholesterol in LDL [Mass/Vol] 99 mg/dL Normal 0-130 [facility] Comment on above: Order Comment: 103-1 Performed By: #### L 100.0500, L500.4100, L500.4050 #### [facility] [address] [place], [address] Cholesterol in VLDL [Mass/Vol] 36 mg/dL Normal 5-40 [facility] Comment on above: Order Comment: 103-1 Performed By: #### L 100.0500, L500.4100, L500.4050 #### [facility] [address] [place], [address] Triglyceride [Mass/Vol] 181 mg/dL Normal [facility] Comment on above: Order Comment: 103-1 Result Comment: The drugs N-Acetylcysteine and Metamizole may falsely depress this assay. Serum Triglycerides Reference Interval Normal <150 mg/dL Borderline high 150 - 199 mg/dL High 200 - 499 mg/dL Very High > or = 500 mg/dL Performed By: #### L 100.0500, L500.4100, L500.4050 #### [facility] [address] [place], [address] Low density lipoprotein (LDL ) cholesterol measurementOrdered By: Jared Guzman on 12-27-2024 Cholesterol in LDL [Mass/Vol] 99 mg/dL 0-130 [facility] MCV (mean corpuscular volume ) determinationOrdered By: Jared Guzman on 12-27-2024 MCV (RBC) [Entitic vol] 86.0 fL 81-99 [facility] Mean corpuscular hemoglobin (MCH) determinationOrdered By: Jared Guzman on 12-27-2024 MCH (RBC) [Entitic mass] 27.2 pg 27.0-32.0 [facility] Mean corpuscular hemoglobin concentration (MCHC) determinationOrdered By: Jared Guzman on 12-27-2024 MCHC (RBC) [Mass/Vol] 31.6 g/dL Low 32-36 [facility] Mean platelet volume determi nationOrdered By: Jared Guzman on 12-27-2024 Platelet mean volume (Bld) [Entitic vol] 10.3 fL 6.2-12.0 [facility] Platelet countOrdered By: Marcel Piper on 12-27-2024 Platelets (Bld) [#/Vol] 350 10*3/uL 150-450 [facility] Potassium measurementOrdered By: Jared Guzman on 12-27-2024 Potassium [Moles/Vol] 3.9 mmol/L 3.5-5.1 [facility] RBC Auto (Bld) [#/Vol]Ordere d By: Jared Guzman on 12-27-2024 RBC (Bld) [#/Vol] 4.01 10*6/uL Low 4.2-5.4 [facility] Serum anion gap measurementO rdered By: Jared Guzman on 12-27-2024 Anion gap [Moles/Vol] 6 mmol/L 5-15 [facility] Serum globulin measurementOr dered By: Jared Guzman on 12-27-2024 Globulin (S) [Mass/Vol] 3.4 g/dL 2.2-4.2 [facility] Serum or plasma alanine jones otransferase (ALT) measurementOrdered By: Jared Guzman on 12-27-2024 ALT [Catalytic activity/Vol] 32 U/L 13-56 [facility] Serum or plasma albumin mauricio urement (mass/volume)Ordered By: Jared Guzman on 12-27-2024 Albumin [Mass/Vol] 2.8 g/dL Low 3.2-5.0 [facility] Serum or plasma alkaline abbey sphatase measurementOrdered By: Jared Guzman on 12-27-2024 ALP [Catalytic activity/Vol] 152 U/L High 45-117 [facility] Serum or plasma calcium mauricio urement (mass/volume)Ordered By: Jared Guzman on 12-27-2024 Calcium [Mass/Vol] 9.4 mg/dL 8.5-10.1 [facility] Serum or plasma cholesterol measurement (mass/volume)Ordered By: Jared Guzman on 12-27-2024 Cholesterol [Mass/Vol] 178 mg/dL <200 [facility] Comment on above: <200 mg/dL Desirable 200-240 mg/dL Borderline >240 mg/dL High Risk Serum or plasma creatinine m easurement (mass/volume)Ordered By: Jared Guzman on 12-27-2024 Creatinine [Mass/Vol] 0.56 mg/dL 0.55-1.02 [facility] Comment on above: The validity of the calculated GFR & GFRAA in patients over 70 years has not been determined. Clinical correlation is essential. Serum or plasma urea nitroge n measurement (mass/volume)Ordered By: Jared Guzman on 12-27-2024 Urea nitrogen [Mass/Vol] 8 mg/dL 7-18 [facility] Sodium levelOrdered By: Main Guzman on 12-27-2024 Sodium [Moles/Vol] 139 mmol/L 136-145 [facility] Total proteinOrdered By: Mike Guzman on 12-27-2024 Protein [Mass/Vol] 6.2 g/dL Low 6.4-8.2 [facility] Triglycerides measurementOrd ered By: Jared Guzman on 12-27-2024 Triglyceride [Mass/Vol] 181 mg/dL <199 [facility] Comment on above: The drugs N-Acetylcy steine and Metamizole may falsely depress this assay.Serum Triglycerides Reference Interval Normal <150 mg/dL Borderline high 150 - 199 mg/dL High 200 - 499 mg/dL Very High > or = 500 mg/dL Very low density lipoprotein (VLDL) cholesterol measurementOrdered By: Jaerd Guzman on 12-27-2024 Very low density lipoprotein (VLDL) cholesterol measurement 36 mg/dL 5-40 [facility] VLDL Cholesterol 36 mg/dL 5-40 [facility] White blood cell (WBC) count Ordered By: Jared Guzman on 12-27-2024 WBC (Bld) [#/Vol] 6.9 10*3/uL 4.4-11.0 [facility] 36on 12-22-2024 36 [address] 36 Normal [facility] [address] [facility] 36 Faxed orders from ed dean to [facility] 36on 12-21-[address] [facility] 37on 12-21-[address] [facility] Progress Noteon 12-21-[address] [facility] Progress Note Patient was verified by name and . [facility] 36on 12-20-2024 [address] [facility] 36on 12-13-2024 36 Called SNF s/w Nabil released message as written, she stated that she understood and had no questions. [facility] 36on 12-12-[address] [facility] 36on 12-11-2024 [address] [facility] Progress Noteon 12-07-[address] [facility] 36on 12-06-2024 36 LVM with senior care(primary number in account) for [employer] to call back to schedule follow up appointment with [facility]. [facility] 36on 12-05-2024 36 Faxed recommendation s to [facility] at fax #: [phone]. [facility] [address] [facility] [address] [facility] Albumin to globulin ratioOrd ered By: Jared Guzman on 12-05-2024 Albumin/Globulin [Mass ratio] 0.9 {ratio} 0.9-2.4 [facility] Bilirubin, totalOrdered By: Jared Guzman on 12-05-2024 Bilirubin [Mass/Vol] 0.50 mg/dL 0.20-1.00 [facility] Comment on above: For patients on eltr ombopag therapy, use of Dimension [place] TBIL is not recommended. Blood urea nitrogen (BUN)/cr eatinine ratioOrdered By: Jared Guzman on 12-05-2024 Urea nitrogen/Creatinine [Mass ratio] 20.1 mg/mg High 10-20 [facility] CBC-Complete Blood Cnt No Di ffon 12-05-2024 Erythrocyte distribution width (RBC) [Ratio] 14.7 % High 11.6-14.6 [facility] Comment on above: Order Comment: SC CATHETER SPECIMEN Performed By: #### L 400.2010 #### [facility] [address] [place], [address] Hematocrit (Bld) [Volume fraction] 35.9 % Low 37-47 [facility] Comment on above: Order Comment: SC CATHETER SPECIMEN Performed By: #### L 400.2010 #### [facility] [address] [place], [address] Hemoglobin (Bld) [Mass/Vol] 11.1 g/dL Low 12.0-15.0 [facility] Comment on above: Order Comment: SC CATHETER SPECIMEN Performed By: #### L 400.2010 #### [facility] [address] [place], [address] MCH (RBC) [Entitic mass] 26.5 pg Low 27.0-32.0 [facility] Comment on above: Order Comment: SC CATHETER SPECIMEN Performed By: #### L 400.2010 #### [facility] [address] [place], [address] MCHC (RBC) [Mass/Vol] 30.9 g/dL Low 32-36 [facility] Comment on above: Order Comment: SC CATHETER SPECIMEN Performed By: #### L 400.2010 #### [facility] [address] [place], [address] MCV (RBC) [Entitic vol] 85.7 fL Normal 81-99 [facility] Comment on above: Order Comment: SC CATHETER SPECIMEN Performed By: #### L 400.2010 #### [facility] [address] [place], [address] Platelet mean volume (Bld) [Entitic vol] 10.2 fL Normal 6.2-12.0 [facility] Comment on above: Order Comment: SC CATHETER SPECIMEN Performed By: #### L 400.2010 #### [facility] [address] [place], [address] Platelets (Bld) [#/Vol] 355 10*3/uL Normal 150-450 [facility] Comment on above: Order Comment: SC CATHETER SPECIMEN Performed By: #### L 400.2010 #### [facility] [address] [place], [address] RBC (Bld) [#/Vol] 4.19 10*6/uL Low 4.2-5.4 [facility] Comment on above: Order Comment: SC CATHETER SPECIMEN Performed By: #### L 400.2010 #### [facility] [address] [place], [address] RDW SD 46.5 fl High 35.1-43.9 [facility] Comment on above: Order Comment: SC CATHETER SPECIMEN Performed By: #### L 400.2010 #### [facility] [address] [place], [address] WBC (Bld) [#/Vol] 8.2 10*3/uL Normal 4.4-11.0 [facility] Comment on above: Order Comment: SC CATHETER SPECIMEN Performed By: #### L 400.2010 #### [facility] [address] [place], [address] Carbon dioxide measurementOr dered By: Jared Guzman on 12-05-2024 CO2 [Moles/Vol] 31.0 mmol/L 21.0-32.0 [facility] Chloride measurementOrdered By: Jared Guzman on 12-05-2024 Chloride [Moles/Vol] 99 mmol/L 98-107 [facility] Comprehensive Metabolic Prof ilon 12-05-2024 Albumin [Mass/Vol] 3.0 g/dL Low 3.2-5.0 [facility] Comment on above: Order Comment: SC CATHETER SPECIMEN Performed By: #### L 400.2010 #### [facility] [address] [place], [address] Albumin/Globulin [Mass ratio] 0.9 {ratio} Normal 0.9-2.4 [facility] Comment on above: Order Comment: SC CATHETER SPECIMEN Performed By: #### L 400.2010 #### [facility] [address] [place], [address] ALK P 137 U/L High 45-117 [facility] Comment on above: Order Comment: SC CATHETER SPECIMEN Performed By: #### L 400.2010 #### [facility] [address] [place], [address] ALT [Catalytic activity/Vol] 23 U/L Normal 13-56 [facility] Comment on above: Order Comment: SC CATHETER SPECIMEN Performed By: #### L 400.2010 #### [facility] [address] [place], [address] AST [Catalytic activity/Vol] 12 U/L Low 15-37 [facility] Comment on above: Order Comment: SC CATHETER SPECIMEN Performed By: #### L 400.2010 #### [facility] [address] [place], [address] Bilirubin [Mass/Vol] 0.50 mg/dL Normal 0.20-1.00 [facility] Comment on above: Order Comment: SC CATHETER SPECIMEN Result Comment: For patients on eltrombopag therapy, use of Dimension [place] TBIL is not recommended. Performed By: #### L 400.2010 #### [facility] [address] [place], [address] BUN/CRE 20.1 RATIO High 10-20 [facility] Comment on above: Order Comment: SC CATHETER SPECIMEN Performed By: #### L 400.2010 #### [facility] [address] [place], [address] CA,Total 9.0 mg/dL Normal 8.5-10.1 [facility] Comment on above: Order Comment: SC CATHETER SPECIMEN Performed By: #### L 400.2010 #### [facility] [address] [place], [address] Chloride [Moles/Vol] 99 mmol/L Normal 98-107 [facility] Comment on above: Order Comment: SC CATHETER SPECIMEN Performed By: #### L 400.2010 #### [facility] [address] [place], [address] CO2 [Moles/Vol] 31.0 mmol/L Normal 21.0-32.0 [facility] Comment on above: Order Comment: SC CATHETER SPECIMEN Performed By: #### L 400.2010 #### [facility] [address] [place], [address] Creatinine [Mass/Vol] 0.70 mg/dL Normal 0.55-1.02 [facility] Comment on above: Order Comment: SC CATHETER SPECIMEN Result Comment: The validity of the calculated GFR GFRAA in patients over 70 years has not been determined. Clinical correlation is essential. Performed By: #### L 400.2010 #### [facility] [address] [place], [address] EST GFR - AA 111 mL/min Normal >60 [facility] Comment on above: Order Comment: SC CATHETER SPECIMEN Result Comment: Afri can Vincentian GFR Calc Performed By: #### L 400.2010 #### [facility] [address] [place], [address] GAP 6 Normal 5-15 [facility] Comment on above: Order Comment: SC CATHETER SPECIMEN Performed By: #### L 400.2010 #### [facility] [address] [place], [address] GFR/1.73 sq M.predicted among non-blacks MDRD (S/P/Bld) [Vol rate/Area] 92 mL/min/{1.73_m2} Normal >60 [facility] Comment on above: Order Comment: SC CATHETER SPECIMEN Result Comment: Non- GFR Calc Performed By: #### L 400.2010 #### [facility] [address] [place], [address] Globulin (S) [Mass/Vol] 3.3 g/dL Normal 2.2-4.2 [facility] Comment on above: Order Comment: SC CATHETER SPECIMEN Performed By: #### L 400.2010 #### [facility] [address] [place], [id number] Glucose [Mass/Vol] 86 mg/dL Normal 74-106 [facility] Comment on above: Order Comment: SC CATHETER SPECIMEN Performed By: #### L 400.2010 #### [facility] [address] [place], [address] Potassium [Moles/Vol] 3.0 mmol/L Low 3.5-5.1 [facility] Comment on above: Order Comment: SC CATHETER SPECIMEN Performed By: #### L 400.2010 #### [facility] [address] [place], [id number] Sodium [Moles/Vol] 136 mmol/L Normal 136-145 [facility] Comment on above: Order Comment: SC CATHETER SPECIMEN Performed By: #### L 400.2010 #### [facility] [address] [place], [address] T PROT 6.3 g/dL Low 6.4-8.2 [facility] Comment on above: Order Comment: SC CATHETER SPECIMEN Performed By: #### L 400.2010 #### [facility] [address] [place], [address] Urea nitrogen [Mass/Vol] 14 mg/dL Normal 7-18 [facility] Comment on above: Order Comment: SC CATHETER SPECIMEN Performed By: #### L 400.2010 #### [facility] [address] [place], [id number] Erythrocyte distribution wid th ratioOrdered By: Jared Guzman on 12-05-2024 Erythrocyte distribution width (RBC) [Ratio] 14.7 % High 11.6-14.6 [facility] Erythrocyte distribution wid th standard deviationOrdered By: Jared Guzman on 12-05-2024 Erythrocyte distribution width (RBC) [Entitic vol] 46.5 fL High 35.1-43.9 [facility] Estimated glomerular filtrat ion rate (GFR) AmericanOrdered By: Jared Guzman on 12-05-2024 Estimated GFR (MDRD) Amer 111 mL/min >60 [facility] Comment on above: GFR Calc Glomerular filtration rate ( GFR) estimationOrdered By: Jared Guzman on 12-05-2024 Estimated GFR (MDRD) Non-Af Amer 92 mL/min >60 [facility] Comment on above: Non- GFR Calc Glucose measurementOrdered B y: Jared Guzman on 12-05-2024 Glucose [Mass/Vol] 86 mg/dL 74-106 [facility] Hematocrit Auto (Bld) [Volum e fraction]Ordered By: Jared Guzman on 12-05-2024 Hematocrit (Bld) [Volume fraction] 35.9 % Low 37-47 [facility] Hemoglobin measurementOrdere d By: Jared Guzman on 12-05-2024 Hemoglobin (Bld) [Mass/Vol] 11.1 g/dL Low 12.0-15.0 [facility] Laboratory - Chemistry and C hemistry - challengeOrdered By: Jared Guzman on 12-05-2024 AST [Catalytic activity/Vol] 12 U/L Low 15-37 [facility] MCV (mean corpuscular volume ) determinationOrdered By: Jared Guzman on 12-05-2024 MCV (RBC) [Entitic vol] 85.7 fL 81-99 [facility] Mean corpuscular hemoglobin (MCH) determinationOrdered By: Jared Guzman on 12-05-2024 MCH (RBC) [Entitic mass] 26.5 pg Low 27.0-32.0 [facility] Mean corpuscular hemoglobin concentration (MCHC) determinationOrdered By: Jared Guzman on 12-05-2024 MCHC (RBC) [Mass/Vol] 30.9 g/dL Low 32-36 [facility] Mean platelet volume determi nationOrdered By: Jared Guzman on 12-05-2024 Platelet mean volume (Bld) [Entitic vol] 10.2 fL 6.2-12.0 [facility] Platelet countOrdered By: Marcel Piper on 12-05-2024 Platelets (Bld) [#/Vol] 355 10*3/uL 150-450 [facility] Potassium measurementOrdered By: Jared Guzman on 12-05-2024 Potassium [Moles/Vol] 3.0 mmol/L Low 3.5-5.1 [facility] RBC Auto (Bld) [#/Vol]Ordere d By: Jared Guzman on 12-05-2024 RBC (Bld) [#/Vol] 4.19 10*6/uL Low 4.2-5.4 [facility] Serum anion gap measurementO rdered By: Jared Guzman on 12-05-2024 Anion gap [Moles/Vol] 6 mmol/L 5-15 [facility] Serum globulin measurementOr dered By: Jared Guzman on 12-05-2024 Globulin (S) [Mass/Vol] 3.3 g/dL 2.2-4.2 [facility] Serum or plasma alanine jones otransferase (ALT) measurementOrdered By: Jared Guzman on 12-05-2024 ALT [Catalytic activity/Vol] 23 U/L 13-56 [facility] Serum or plasma albumin mauricio urement (mass/volume)Ordered By: Jared Guzman on 12-05-2024 Albumin [Mass/Vol] 3.0 g/dL Low 3.2-5.0 [facility] Serum or plasma alkaline abbey sphatase measurementOrdered By: Jared Guzmna on 12-05-2024 ALP [Catalytic activity/Vol] 137 U/L High 45-117 [facility] Serum or plasma calcium mauricio urement (mass/volume)Ordered By: Jared Guzman on 12-05-2024 Calcium [Mass/Vol] 9.0 mg/dL 8.5-10.1 [facility] Serum or plasma creatinine m easurement (mass/volume)Ordered By: Jared Guzman on 12-05-2024 Creatinine [Mass/Vol] 0.70 mg/dL 0.55-1.02 [facility] Comment on above: The validity of the calculated GFR & GFRAA in patients over 70 years has not been determined. Clinical correlation is essential. Serum or plasma urea nitroge n measurement (mass/volume)Ordered By: Jared Guzman on 12-05-2024 Urea nitrogen [Mass/Vol] 14 mg/dL 7-18 [facility] Sodium levelOrdered By: Main Guzman on 12-05-2024 Sodium [Moles/Vol] 136 mmol/L 136-145 [facility] Total proteinOrdered By: Mike Guzman on 12-05-2024 Protein [Mass/Vol] 6.3 g/dL Low 6.4-8.2 [facility] White blood cell (WBC) count Ordered By: Jared Guzman on 12-05-2024 WBC (Bld) [#/Vol] 8.2 10*3/uL 4.4-11.0 [facility] 36on 12-01-2024 36 Faxed new insulin or cary to [facility] at fax #: [phone]. Normal [facility] BASIC METABOLIC PANELon 11-09 Anion gap [Moles/Vol] 10 mmol/L Normal 3-13 [facility] Comment on above: Performed By: #### L [id number] ####Magazine Journalist: KEMAR ABEBE ([id number])[facility] ([facility])[address] [place] [address] Calcium [Mass/Vol] 9.0 mg/dL Normal 8.4-10.2 [facility] Comment on above: Performed By: #### L AB15 ####Magazine Journalist: KEMAR ABEBE ([id number])[facility] ([facility])[address] Chloride [Moles/Vol] 102 mmol/L Normal 98-107 [facility] Comment on above: Performed By: #### L [id number] ####Magazine Journalist: KEMAR ABEBE ([id number])[facility] ([facility])[address] CO2 [Moles/Vol] 25 mmol/L Normal 22-29 [facility] Comment on above: Performed By: #### L [id number] ####Magazine Journalist: KEMAR ABEBE ([id number])[facility]ENTERA [place] ([facility])[address] Creatinine [Mass/Vol] 0.67 mg/dL Normal [facility] Comment on above: Performed By: #### L [id number] ####Magazine Journalist: KEMAR ABEBE ([id number])[facility]ENTERA BARBPRESBYTERIAN K[facility]OSPITALN ([facility])[address] GLOMERULAR FILTRATION RATE ML/MIN/1.73 SQ M.PREDICTED >90.0 Normal >60.0 [facility] Comment on above: Result Comment: Calc ulation based on the Chronic Kidney Disease Epidemiology Collaboration (CKD-EPI) equation refit without adjustment for race Performed By: #### L [id number] ####Magazine Journalist: KEMAR ABEBE ([id number])[facility]A [facility]BPRESBY[facility]N ([facility])[address] Glucose [Mass/Vol] 215 mg/dL High 74-100 [facility] Comment on above: Performed By: #### L [id number] ####Magazine Journalist: KEMAR ABEBE ([id number])[facility] ([facility])[address] Potassium [Moles/Vol] 3.4 mmol/L Low 3.5-5.1 [facility] Comment on above: Result Comment: [facility] potassium values may be up to 0.5 mmol/L lower than serum values. Performed By: #### L [id number] ####Magazine Journalist: KEMAR ABEBE ([id number])[facility]A [place] ([facility])[address] [place] [address] [place] Sodium [Moles/Vol] 137 mmol/L Normal 136-145 [facility] Comment on above: Performed By: #### L [id number] ####Magazine Journalist: KEMAR ABEBE ([id number])[facility]A [facility]BPRESBY[facility]ITALN ([facility])[address] [place] [address] [place] Urea nitrogen [Mass/Vol] 10 mg/dL Normal 9-23 [facility] Comment on above: Performed By: #### L [id number] ####Magazine Journalist: KEMAR ABEBE ([id number])[facility] CENTERWarren SHERIKATIA ([facility])[address] [place] [address] Consulton 12-01-2024 Consult Normal [facility] ED Nursing Noteon 12-01-2024 ED Nursing Note Normal [facility] Progress Noteon 12-01-2024 Progress Note Normal [facility] Progress Note Normal [facility] Albumin to globulin ratioOrd ered By: Jared Guzman on 11-30-2024 Albumin/Globulin [Mass ratio] 0.4 {ratio} Low 0.9-2.4 [facility] Bilirubin, totalOrdered By: Jared Guzman on 11-30-2024 Bilirubin [Mass/Vol] 0.40 mg/dL 0.20-1.00 [facility] Comment on above: For patients on eltr ombopag therapy, use of Dimension [place] TBIL is not recommended. Blood urea nitrogen (BUN)/cr eatinine ratioOrdered By: Jared Guzman on 11-30-2024 Urea nitrogen/Creatinine [Mass ratio] 10.5 mg/mg 10-20 [facility] CBC WITH AUTO DIFFERENTIALon 11-30-2024 Basophils (Bld) [#/Vol] 0.0 10*3/uL Normal 0.0-0.2 [facility] Comment on above: Performed By: #### L [id number] ####Magazine Journalist: KEMAR AEBBE ([id number])[facility] CENTERWarren [place]IKAT[place] ([facility])[address] [place] [address] Basophils/100 WBC (Bld) 0.2 % Normal 0.0-2.0 [facility] Comment on above: Performed By: #### L [id number] ####Magazine Journalist: KEMAR ABEBE ([id number])[facility] CENTERWarren [facility]USKATIA ([facility])[address] [place] [address] Eosinophils (Bld) [#/Vol] 0.1 10*3/uL Normal 0.0-0.5 [facility] Comment on above: Performed By: #### L [id number] ####Magazine Journalist: KEMAR ABEBE ([id number])[facility] ([facility])[address] [place] [address] Eosinophils/100 WBC (Bld) 1.2 % Normal 0.0-6.0 [facility] Comment on above: Performed By: #### L [id number] ####Magazine Journalist: KEMAR ABEBE ([id number])[facility] ([facility])[address] Erythrocyte distribution width (RBC) [Ratio] 14.7 % Normal 11.5-15.0 [facility] Comment on above: Performed By: #### L [id number] ####Magazine Journalist: KEMAR ABEBE ([id number])[facility] ([facility])[address] [place] [address] Hematocrit (Bld) [Volume fraction] 37.5 % Normal Male: 40.0-52.0 ; Female: 35.0-47.0 [facility] Comment on above: Performed By: #### L [id number] ####Magazine Journalist: KEMAR ABEBE ([id number])[facility] ([facility])[address] [place] [address] Hemoglobin (Bld) [Mass/Vol] 12.0 g/dL Normal 11.7-18.0 [facility] Comment on above: Performed By: #### L [id number] ####Magazine Journalist: KEMAR ABEBE ([id number])[facility] ([facility])[address] [place] [address] IMMATURE GRANS % 0.6 % Normal 0.0-2.0 [facility] Comment on above: Performed By: #### L [id number] ####Magazine Journalist: KEMAR ABEBE ([id number])[facility] ([facility])[address] [place] [address] IMMATURE GRANS ABSOLUTE 0.1 10*3/uL High <0.1 [facility] Comment on above: Performed By: #### L [id number] ####Magazine Journalist: KEMAR ABEBE ([id number])[facility]ENTERWarren WADEPRESBYTERIAN KASEMAN HOSPITALJermaine ([facility])[address] Lymphocytes (Bld) [#/Vol] 1.3 10*3/uL Normal 1.0-4.3 [facility] Comment on above: Performed By: #### L [id number] ####Magazine Journalist: KEMAR ABEBE ([id number])[facility]ENTERWarren BARBPRESBYTERIAN KASEMAN HOSPITALN ([facility])[address] Lymphocytes/100 WBC (Bld) 15.0 % Normal 15.0-45.0 [facility] Comment on above: Performed By: #### L [id number] ####Magazine Journalist: KEMAR ABEBE ([id number])[facility] ([facility])[address] [place] [address] MCH (RBC) [Entitic mass] 26.8 pg Normal 26.0-34.0 [facility] Comment on above: Performed By: #### L [id number] ####Magazine Journalist: KEMAR ABEBE ([id number])[facility]ENTERWarren [place] ([facility])[address] [place] [address] MCHC 32.0 % Normal 30.5-36.0 [facility] Comment on above: Performed By: #### L [id number] ####Magazine Journalist: KEMAR ABEBE ([id number])[facility] BARBPRESBYTERIAN KASEMAN HOSPITALN ([facility])[address] [place] [address] MCV (RBC) [Entitic vol] 83.9 fL Normal 77.0-99.0 [facility] Comment on above: Performed By: #### L [id number] ####Magazine Journalist: KEMAR ABEBE ([id number])[facility]ENTERWarren [facility] ([facility])[address] [place] [address] Monocytes (Bld) [#/Vol] 0.3 10*3/uL Normal 0.0-0.9 [facility] Comment on above: Performed By: #### L [id number] ####Magazine Journalist: KEMAR ABEBE ([id number])[facility] [place] ([facility])[address] Monocytes/100 WBC (Bld) 3.7 % Low 5.0-13.0 [facility] Comment on above: Performed By: #### L [id number] ####Magazine Journalist: KEMAR ABEBE ([id number])[facility]ENTERA [place] ([facility])[address] NEUTROPHILS ABSOLUTE 7.0 10*3/uL Normal 1.8-7.5 [facility] Comment on above: Performed By: #### L [id number] ####Magazine Journalist: KEMAR LUDWIGSAAD ([id number])[facility]ENTERA [place] ([facility])[address] Neutrophils/100 WBC (Bld) 79.3 % Normal 38.0-82.0 [facility] Comment on above: Performed By: #### L [id number] ####Magazine Journalist: KEMAR ABEBE ([id number])[facility]ENTERA [place] ([facility])[address] NRBC 0.0 /100 WBCs Normal 0.0-2.0 [facility] Comment on above: Performed By: #### L [id number] ####Magazine Journalist: KEMAR ABEBE ([id number])[facility]ENTERA [place] ([facility])[address] Platelet mean volume (Bld) [Entitic vol] 9.5 fL Normal 9.0-12.7 [facility] Comment on above: Performed By: #### L [id number] ####Magazine Journalist: KEMAR ABEBE ([id number])[facility]A [place] ([facility])[address] Platelets (Bld) [#/Vol] 384 10*3/uL Normal 140-440 [facility] Comment on above: Performed By: #### L [id number] ####Magazine Journalist: KEMAR ABEBE ([id number])[facility]ENTERWarren [facility]ARIZ[facility] ([facility])[address] [place] [address] RBC (Bld) [#/Vol] 4.47 10*6/uL Normal Male: 4.40-5.90; Female: 3.80-5.20 [facility] Comment on above: Performed By: #### L [id number] ####Magazine Journalist: KEMAR ABEBE ([id number])[facility]ENTERWarren [place] ([facility])[address] [place] [address] WBC (Bld) [#/Vol] 8.8 10*3/uL Normal 3.6-10.7 [facility] Comment on above: Performed By: #### L [id number] ####Magazine Journalist: KEMAR ABEBE ([id number])[facility] ([facility])[address] [place] [address] CBC-Complete Blood Cnt No Di ffon 11-30-2024 Erythrocyte distribution width (RBC) [Ratio] 15.1 % High 11.6-14.6 [facility] Comment on above: Order Comment: 103-1 Performed By: #### L 100.0500, L500.4100, L500.4050 #### [facility] Laboratory [address] [place], [address] Hematocrit (Bld) [Volume fraction] 34.7 % Low 37-47 [facility] Comment on above: Order Comment: 103-1 Performed By: #### L 100.0500, L500.4100, L500.4050 #### [facility] [address] [place], [address] Hemoglobin (Bld) [Mass/Vol] 10.8 g/dL Low 12.0-15.0 [facility] Comment on above: Order Comment: 103-1 Performed By: #### L 100.0500, L500.4100, L500.4050 #### [facility] [address] [place], [address] MCH (RBC) [Entitic mass] 26.6 pg Low 27.0-32.0 [facility] Comment on above: Order Comment: 103-1 Performed By: #### L 100.0500, L500.4100, L500.4050 #### [facility] [address] [place], [address] MCHC (RBC) [Mass/Vol] 31.1 g/dL Low 32-36 [facility] Comment on above: Order Comment: 103-1 Performed By: #### L 100.0500, L500.4100, L500.4050 #### [facility] [address] [place], [address] MCV (RBC) [Entitic vol] 85.5 fL Normal 81-99 [facility] Comment on above: Order Comment: 103-1 Performed By: #### L 100.0500, L500.4100, L500.4050 #### [facility] [address] [place], [address] Platelet mean volume (Bld) [Entitic vol] 10.0 fL Normal 6.2-12.0 [facility] Comment on above: Order Comment: 103-1 Performed By: #### L 100.0500, L500.4100, L500.4050 #### [facility] [address] [place], [address] Platelets (Bld) [#/Vol] 375 10*3/uL Normal 150-450 [facility] Comment on above: Order Comment: 103-1 Performed By: #### L 100.0500, L500.4100, L500.4050 #### [facility] [address] [place], [address] RBC (Bld) [#/Vol] 4.06 10*6/uL Low 4.2-5.4 [facility] Comment on above: Order Comment: 103-1 Performed By: #### L 100.0500, L500.4100, L500.4050 #### [facility] [address] [place], [address] RDW SD 46.6 fl High 35.1-43.9 [facility] Comment on above: Order Comment: 103-1 Performed By: #### L 100.0500, L500.4100, L500.4050 #### [facility] [address] [place], [address] WBC (Bld) [#/Vol] 8.4 10*3/uL Normal 4.4-11.0 [facility] Comment on above: Order Comment: 103-1 Performed By: #### L 100.0500, L500.4100, L500.4050 #### [facility] [address] [place], [address] COMPLETE URINALYSISon 2024 BACTERIA (#/HPF) IN URINE Negative Normal Negative [facility] Comment on above: Performed By: #### L [id number] ####Magazine Journalist: KEMAR ABEBE ([id number])[facility] ([facility])[address] [place] [address] BILIRUBIN, TOTAL PRESENCE IN URINE Negative Normal Negative [facility] Comment on above: Performed By: #### L [id number] ####Magazine Journalist: KEMAR ABEBE ([id number])[facility] ([facility])[address] [place] [address] [place] Clarity (U) Clear Normal Clear [facility] Comment on above: Performed By: #### L [id number] ####Magazine Journalist: KEMAR ABEBE ([id number])[facility] ([facility])[address] [place] [address] [place] Color (U) Light Yellow Normal Lt. Yellow [facility] Comment on above: Performed By: #### L [id number] ####Magazine Journalist: KEMAR LUDWIGSAAD ([id number])[facility]ENTERA BARBPRESBYTERIAN KASEM[facility] HOSPITALN (SBHL[facility])[address] Glucose (U) [Mass/Vol] 50 mg/dL Normal Janey l (<70) [facility] Comment on above: Performed By: #### L [id number] ####Magazine Journalist: KEMAR MOMINHARRISON ([id number])[facility]ENTERA BARBPRESBYTERIAN KASEMAN HOSPITALN (SB[facility])[address] HEMOGLOBIN PRESENCE IN URINE 1.0 mg/dL Abnormal Negative [facility] Comment on above: Performed By: #### L [id number] ####Magazine Journalist: KEMAR MOMINHARRISON ([id number])[facility] ([facility])[address] HYALINE CASTS (#/LPF) IN URINE SEDIMENT BY MICROSCOPY 0-2 Abnormal Negative [facility] Comment on above: Performed By: #### L [id number] ####Magazine Journalist: KEMAR MOMINHARRISON ([id number])[facility] ([facility])[address] Ketones Ql (U) Trace Abnormal Negative [facility] Comment on above: Performed By: #### L [id number] ####Magazine Journalist: KEMAR LUDWIGSAAD ([id number])[facility] ([facility])[address] LEUKOCYTE ESTERASE PRESENCE IN URINE BY TEST STRIP Negative Normal Negative [facility] Comment on above: Performed By: #### L [id number] ####Magazine Journalist: KEMAR MOMINHARRISON ([id number])[facility]BARIZONA [facility] (SBHLAB)[address] [place] [address] [place] MUCUS (#/LPF) IN URINE SEDIMENT Few Normal Negative [facility] Comment on above: Performed By: #### L [id number] ####Magazine Journalist: KEMAR MOMINHARRISON ([id number])[facility] ([facility])[address] NITRITE PRESENCE IN URINE Negative Normal Negative [facility] Comment on above: Performed By: #### L [id number] ####Magazine Journalist: KEMAR ABEBE ([id number])[facility] CENTERWarren [place] ([facility])[address] pH (U) 6.0 [pH] Normal 5.0-8.0 [facility] Comment on above: Performed By: #### L [id number] ####Magazine Journalist: KEMAR ABEBE ([id number])[facility] CENTERWarren [facility] ([facility])[address] Protein (U) [Mass/Vol] 100 mg/dL Abnormal Negative [facility] Comment on above: Performed By: #### L [id number] ####Magazine Journalist: KEMAR ABEBE ([id number])[facility] ([facility])[address] RBC (#/HPF) IN URINE SEDIMENT >100 Abnormal 0-2 [facility] Comment on above: Performed By: #### L [id number] ####Magazine Journalist: KEMAR ABEBE ([id number])[facility]ENTERWarren TY[place] ([facility])[address] Specific gravity (U) [Rel density] 1.012 Normal 1.005-1.030 [facility] Comment on above: Performed By: #### L [id number] ####Magazine Journalist: KEMAR ABEBE ([id number])[facility] ([facility])[address] SQUAMOUS EPITHELIAL CELLS (#/HPF) IN URINE SEDIMENT 3-5 Normal 3-5 [facility] Comment on above: Performed By: #### L [id number] ####Magazine Journalist: KEMAR ABEBE ([id number])[facility] ([facility])[address] UROBILINOGEN (MG/DL) IN URINE Normal Normal Normal (0-1) [facility] Comment on above: Performed By: #### L [id number] ####Magazine Journalist: KEMAR ABEBE ([id number])[facility] [place] ([facility])[address] WBC (LEUKOCYTE) (#/HPF) IN URINE SEDIMENT 0-2 Normal 0-5 [facility] Comment on above: Performed By: #### L [id number] ####Magazine Journalist: KEMAR ABEBE ([id number])[facility] [place] ([facility])[address] COMPREHENSIVE METABOLIC PANE Gigi 11-30-2024 Albumin [Mass/Vol] 3.4 g/dL Low 3.5-5.0 [facility] Comment on above: Performed By: #### L [id number], LAB17, [id number], LAB99 ####Magazine Journalist: KEMAR ABEBE ([id number])[facility]ENTERA [place] ([facility])[address] ALP [Catalytic activity/Vol] 145 U/L Normal [facility] Comment on above: Performed By: #### L [id number], LAB17, JIR842, LAB99 ####Magazine Journalist: KEMAR ABEBE ([id number])[facility] [place] ([facility])[address] ALT [Catalytic activity/Vol] 21 U/L Normal [facility] Comment on above: Performed By: #### L [id number], LAB17, [id number], LAB99 ####Magazine Journalist: KEMAR ABEBE ([id number])[facility] [place] ([facility])[address] Anion gap [Moles/Vol] 11 mmol/L Normal 3-13 [facility] Comment on above: Performed By: #### L [id number], LAB17, SHY352, LAB99 ####Magazine Journalist: KEMAR ABEBE ([id number])[facility] [place] ([facility])[address] AST [Catalytic activity/Vol] 21 U/L Normal <34 [facility] Comment on above: Performed By: #### L [id number], LAB17, [id number], LAB99 ####Magazine Journalist: KEMAR ABEBE ([id number])[facility] CENTERWarren KASPERN (SBHLAB)[address] Bilirubin [Mass/Vol] 0.5 mg/dL Normal <1.2 [facility] Comment on above: Performed By: #### L [id number], LAB17, ITD980, LAB99 ####Magazine Journalist: KEMAR ABEBE ([id number])[facility] ([facility])[address] Calcium [Mass/Vol] 8.9 mg/dL Normal 8.4-10.2 [facility] Comment on above: Performed By: #### L [id number], LAB17, [id number], LAB99 ####Magazine Journalist: KEMAR ABEBE ([id number])[facility] CENTERWarren WADEPRESBYTER[facility]ITALN (SBHLAB)[address] [place] [address] [place] Chloride [Moles/Vol] 99 mmol/L Normal 98-107 [facility] Comment on above: Performed By: #### L [id number], LAB17, [id number], LAB99 ####Magazine Journalist: KEMAR ABEBE ([id number])[facility] (SBHLAB)[address] [place] [address] [place] CO2 [Moles/Vol] 28 mmol/L Normal 22-29 [facility] Comment on above: Performed By: #### L [id number], LAB17, [id number], LAB99 ####Magazine Journalist: KEMAR ABEBE ([id number])[facility] (SB[facility]AB)[address] [place] [address] [place] Creatinine [Mass/Vol] 0.73 mg/dL Normal [facility] Comment on above: Performed By: #### L [id number], LAB17, RNE159, LAB99 ####Magazine Journalist: KEMAR ABEBE ([id number])[facility]ENTERA [facility] (SBHLAB)[address] GLOMERULAR FILTRATION RATE ML/MIN/1.73 SQ M.PREDICTED >90.0 Normal >60.0 [facility] Comment on above: Result Comment: Calc ulation based on the Chronic Kidney Disease Epidemiology Collaboration (CKD-EPI) equation refit without adjustment for race Performed By: #### L [id number], LAB17, AXQ589, LAB99 ####Magazine Journalist: KEMAR ABEBE ([id number])[facility] (SBHLAB)[address] Glucose [Mass/Vol] 249 mg/dL High 74-100 [facility] Comment on above: Performed By: #### Elijah [id number], LAB17, HSQ563, LAB99 ####Magazine Journalist: KEMAR ABEBE ([id number])[facility] (SBHLAB)[address] Potassium [Moles/Vol] 3.4 mmol/L Low 3.5-5.1 [facility] Comment on above: Result Comment: [facility] potassium values may be up to 0.5 mmol/L lower than serum values. Performed By: #### Elijah [id number], LAB17, QHW158, LAB99 ####Magazine Journalist: KEMAR ABEBE ([id number])[facility] (SBHLAB)[address] Protein [Mass/Vol] 6.7 g/dL Normal 6.4-8.3 [facility] Comment on above: Performed By: #### L [id number], LAB17, KFF584, LAB99 ####Magazine Journalist: KEMAR ABEBE ([id number])[facility] (SBHLAB)[address] [place] [address] [place] Sodium [Moles/Vol] 138 mmol/L Normal 136-145 [facility] Comment on above: Performed By: #### L [id number], LAB17, YYV152, LAB99 ####Magazine Journalist: KEMAR ABEBE ([id number])[facility] (SBHLAB)[address] [place], [place] [address] [place] [address] Urea nitrogen [Mass/Vol] 10 mg/dL Normal 9-23 [facility] Comment on above: Performed By: #### L [id number], LAB17, KGP392, LAB99 ####Magazine Journalist: KEMAR ABEBE ([id number])[facility]ENTERWarren VIGIL (SBHLAB)[address] Carbon dioxide measurementOr dered By: Jared Guzman on 11-30-2024 CO2 [Moles/Vol] 18.0 mmol/L Low 21.0-32.0 [facility] Chloride measurementOrdered By: Jared Guzman on 11-30-2024 Chloride [Moles/Vol] 104 mmol/L 98-107 [facility] Comprehensive Metabolic Prof ilon 11-30-2024 Albumin [Mass/Vol] 2.0 g/dL Low 3.2-5.0 [facility] Comment on above: Order Comment: 103-1 Performed By: #### L 100.0500, L500.4100, L500.4050 #### [facility] Laboratory [address] [place], [address] Albumin/Globulin [Mass ratio] 0.4 {ratio} Low 0.9-2.4 [facility] Comment on above: Order Comment: 103-1 Performed By: #### L 100.0500, L500.4100, L500.4050 #### [facility] [address] [place], [address] ALK P 137 U/L High 45-117 [facility] Comment on above: Order Comment: 103-1 Performed By: #### L 100.0500, L500.4100, L500.4050 #### [facility] [address] [place], [address] ALT [Catalytic activity/Vol] 26 U/L Normal 13-56 [facility] Comment on above: Order Comment: 103-1 Performed By: #### L 100.0500, L500.4100, L500.4050 #### [facility] [address] [place], [id number] AST [Catalytic activity/Vol] 15 U/L Normal 15-37 [facility] Comment on above: Order Comment: 103-1 Performed By: #### L 100.0500, L500.4100, L500.4050 #### [facility] [address] [place], [address] Bilirubin [Mass/Vol] 0.40 mg/dL Normal 0.20-1.00 [facility] Comment on above: Order Comment: 103-1 Result Comment: For patients on eltrombopag therapy, use of Dimension [place] TBIL is not recommended. Performed By: #### L 100.0500, L500.4100, L500.4050 #### [facility] [address] [place], [address] BUN/CRE 10.5 RATIO Normal 10-20 [facility] Comment on above: Order Comment: 103-1 Performed By: #### L 100.0500, L500.4100, L500.4050 #### [facility] [address] [place], [id number] CA,Total 5.9 mg/dL Invalid Interpretation Code 8.5-10.1 [facility] Comment on above: Order Comment: 103-1 Performed By: #### L 100.0500, L500.4100, L500.4050 #### [facility] [address] [place], [id number] Chloride [Moles/Vol] 104 mmol/L Normal 98-107 [facility] Comment on above: Order Comment: 103-1 Performed By: #### L 100.0500, L500.4100, L500.4050 #### [facility] [address] [place], [id number] CO2 [Moles/Vol] 18.0 mmol/L Low 21.0-32.0 [facility] Comment on above: Order Comment: 103- Performed By: #### L 100.0500, L500.4100, L500.4050 #### [facility] [address] [place], [address] Creatinine [Mass/Vol] 0.57 mg/dL Normal 0.55-1.02 [facility] Comment on above: Order Comment: Result Comment: The validity of the calculated GFR GFRAA in patients over 70 years has not been determined. Clinical correlation is essential. Performed By: #### L 100.0500, L500.4100, L500.4050 #### [facility] [address] [place], [address] EST GFR - AA 140 mL/min Normal >60 [facility] Comment on above: Order Comment: Result Comment: Afri can Vincentian GFR Calc Performed By: #### L 100.0500, L500.4100, L500.4050 #### [facility] [address] [place], [address] GAP 16 High 5-15 [facility] Comment on above: Order Comment: Performed By: #### L 100.0500, L500.4100, L500.4050 #### [facility] [address] [place], [address] GFR/1.73 sq M.predicted among non-blacks MDRD (S/P/Bld) [Vol rate/Area] 116 mL/min/{1.73_m2} Normal >60 [facility] Comment on above: Order Comment: 103-1 Result Comment: Non- GFR Calc Performed By: #### L 100.0500, L500.4100, L500.4050 #### [facility] [address] [place], [address] Globulin (S) [Mass/Vol] 4.6 g/dL High 2.2-4.2 [facility] Comment on above: Order Comment: 103-1 Performed By: #### L 100.0500, L500.4100, L500.4050 #### [facility] [address] [place], [address] Glucose [Mass/Vol] 72 mg/dL Low 74-106 [facility] Comment on above: Order Comment: 103-1 Performed By: #### L 100.0500, L500.4100, L500.4050 #### [facility] [address] [place], [address] Potassium [Moles/Vol] 3.3 mmol/L Low 3.5-5.1 [facility] Comment on above: Order Comment: 103-1 Performed By: #### L 100.0500, L500.4100, L500.4050 #### [facility] [address] [place], [address] Sodium [Moles/Vol] 138 mmol/L Normal 136-145 [facility] Comment on above: Order Comment: 103-1 Performed By: #### L 100.0500, L500.4100, L500.4050 #### [facility] [address] [place], [address] T PROT 6.6 g/dL Normal 6.4-8.2 [facility] Comment on above: Order Comment: 103-1 Performed By: #### L 100.0500, L500.4100, L500.4050 #### [facility] [address] [place], [address] Urea nitrogen [Mass/Vol] 6 mg/dL Low 7-18 [facility] Comment on above: Order Comment: 103-1 Performed By: #### L 100.0500, L500.4100, L500.4050 #### [facility] [address] [place], [address] ED Nursing Noteon 01-23-2025 ED Nursing Note Patient has had some chest discomfort since this morning. Recently had a PICC line placed in upper right arm for fluids. Normal [facility] ED Provider Noteon ED Provider Note Normal [facility] Erythrocyte distribution wid th ratioOrdered By: Jared Guzman on 11-30-2024 Erythrocyte distribution width (RBC) [Ratio] 15.1 % High 11.6-14.6 [facility] Erythrocyte distribution wid th standard deviationOrdered By: Jared Guzman on 11-30-2024 Erythrocyte distribution width (RBC) [Entitic vol] 46.6 fL High 35.1-43.9 [facility] Estimated glomerular filtrat ion rate (GFR) AmericanOrdered By: Jared Guzman on 11-30-2024 Estimated GFR (MDRD) Amer 140 mL/min >60 [facility] Comment on above: GFR Calc Glomerular filtration rate ( GFR) estimationOrdered By: Jared Guzman on 11-30-2024 Estimated GFR (MDRD) Non-Af Amer 116 mL/min >60 [facility] Comment on above: Non- GFR Calc Glucose measurementOrdered B y: Jared Guzman on 11-30-2024 Glucose [Mass/Vol] 72 mg/dL Low 74-106 [facility] HIGH SENSITIVITY TROPONIN, S ERIAL BASELINEon 11-30-2024 TROPONIN HIGH SENSITIVITY BASELINE <3 Normal [facility] Comment on above: Performed By: #### L [id number] ####Magazine Journalist: KEMAR ABEBE ([id number])[facility] ([facility])[address] [place] [address] TROPONIN HIGH SENSITIVITY BASELINE <3 Normal [facility] Comment on above: Performed By: #### L [id number], LAB17, VRL303, LAB99 ####Magazine Journalist: KEMAR ABEBE ([id number])[facility] ([facility])[address] [place] [address] HIGH SENSITIVITY TROPONIN, S ERIAL, SECOND TESTon 11-30-2024 TROPONIN HS, SERIAL REFLEX, TEST TWO <3 Normal [facility] Comment on above: Performed By: #### L [id number] ####Magazine Journalist: KEMAR ABEBE ([id number])[facility]ENTERWarren [facility]US[facility]IA ([facility])[address] Hematocrit Auto (Bld) [Volum e fraction]Ordered By: Jared Guzman on 11-30-2024 Hematocrit (Bld) [Volume fraction] 34.7 % Low 37-47 [facility] Hemoglobin measurementOrdere d By: Jared Guzman on 11-30-2024 Hemoglobin (Bld) [Mass/Vol] 10.8 g/dL Low 12.0-15.0 [facility] LIPASEon 11-30-2024 Lipase [Catalytic activity/Vol] 7 U/L Normal <55 [facility] Comment on above: Performed By: #### L [id number], LAB17, DYL365, LAB99 ####Magazine Journalist: KEMAR ABEBE ([id number])[facility]ENTERWarren TYNAN ([facility])[address] [place] [address] Laboratory - Chemistry and C hemistry - challengeOrdered By: Jared Guzman on 11-30-2024 AST [Catalytic activity/Vol] 15 U/L 15-37 [facility] MAGNESIUMon 11-30-2024 Magnesium [Mass/Vol] 1.5 mg/dL Low 1.6-2.6 [facility] Comment on above: Result Comment: ORDChris R COMMENTS:Higher values can be expected in females during menses. Performed By: #### L [id number], LAB17, AXI415, LAB99 ####Magazine Journalist: KEMAR ABEBE ([id number])[facility]ENTERWarren [facility]US[facility]IA ([facility])[address] MCV (mean corpuscular volume ) determinationOrdered By: Jared Guzman on 11-30-2024 MCV (RBC) [Entitic vol] 85.5 fL 81-99 [facility] Mean corpuscular hemoglobin (MCH) determinationOrdered By: Jared Guzman on 11-30-2024 MCH (RBC) [Entitic mass] 26.6 pg Low 27.0-32.0 [facility] Mean corpuscular hemoglobin concentration (MCHC) determinationOrdered By: Jared Guzman on 11-30-2024 MCHC (RBC) [Mass/Vol] 31.1 g/dL Low 32-36 [facility] Mean platelet volume determi nationOrdered By: Jared Guzman on 11-30-2024 Platelet mean volume (Bld) [Entitic vol] 10.0 fL 6.2-12.0 [facility] Platelet countOrdered By: Marcel Piper on 11-30-2024 Platelets (Bld) [#/Vol] 375 10*3/uL 150-450 [facility] Potassium measurementOrdered By: Jared Guzman on 11-30-2024 Potassium [Moles/Vol] 3.3 mmol/L Low 3.5-5.1 [facility] RBC Auto (Bld) [#/Vol]Ordere d By: Jared Guzman on 11-30-2024 RBC (Bld) [#/Vol] 4.06 10*6/uL Low 4.2-5.4 [facility] Serum anion gap measurementO rdered By: Jared Guzman on 11-30-2024 Anion gap [Moles/Vol] 16 mmol/L High 5-15 [facility] Serum globulin measurementOr dered By: Jared Guzman on 11-30-2024 Globulin (S) [Mass/Vol] 4.6 g/dL High 2.2-4.2 [facility] Serum or plasma alanine jones otransferase (ALT) measurementOrdered By: Jared Guzman on 11-30-2024 ALT [Catalytic activity/Vol] 26 U/L 13-56 [facility] Serum or plasma albumin mauricio urement (mass/volume)Ordered By: Jared Guzman on 11-30-2024 Albumin [Mass/Vol] 2.0 g/dL Low 3.2-5.0 [facility] Serum or plasma alkaline abbey sphatase measurementOrdered By: Jared Guzman on 11-30-2024 ALP [Catalytic activity/Vol] 137 U/L High 45-117 [facility] Serum or plasma calcium mauricio urement (mass/volume)Ordered By: Jared Guzman on 11-30-2024 Calcium [Mass/Vol] 5.9 mg/dL Low 8.5-10.1 [facility] Serum or plasma creatinine m easurement (mass/volume)Ordered By: Jared Guzman on 11-30-2024 Creatinine [Mass/Vol] 0.57 mg/dL 0.55-1.02 [facility] Comment on above: The validity of the calculated GFR & GFRAA in patients over 70 years has not been determined. Clinical correlation is essential. Serum or plasma urea nitroge n measurement (mass/volume)Ordered By: Jared Guzman on 11-30-2024 Urea nitrogen [Mass/Vol] 6 mg/dL Low 7-18 [facility] Sodium levelOrdered By: Main Guzman on 11-30-2024 Sodium [Moles/Vol] 138 mmol/L 136-145 [facility] Total proteinOrdered By: Mike Guzman on 11-30-2024 Protein [Mass/Vol] 6.6 g/dL 6.4-8.2 [facility] US ABDOMEN LIMITEDon 025 US ABDOMEN LIMITED Normal [facility] White blood cell (WBC) count Ordered By: Jared Guzman on 11-30-2024 WBC (Bld) [#/Vol] 8.4 10*3/uL 4.4-11.0 [facility] 36on 11-28-2024 36 I have reviewed the pt's glucose log. Based on interpretation of the FSBS data I recommend the following changes to the pt's antihyperglycemic regimen: Please increase Humulin u500 to 140 units three times daily before meals. Med rec updated: Yes Normal [facility] 36 Patients BGL Normal [facility] 36on 11-22-2024 36 Normal [facility] 36 Unable to reach Nayan h at [facility] to reschedule appt with Makayla Guerrero on 11/27/2024. Called [facility] again at [phone] and spoke to Quiana again. Rescheduled pt to 01/01/25 and per Quiana, [facility] will call if there is a problem with this date/time. Normal [facility] 36on 11-21-2024 36 Normal [facility] 36 Patient's BGL Normal [facility] 36on 11-20-2024 36 Addendum completed. Sending message to provider as FYI, please indicate if/when patient needs fu with provider to review. Will forward to staff to schedule if indicated. Thank you. Normal [facility] 36on 11-19-2024 [address] [facility] CT CHEST ANGIOGRAM W AND/OR WO IV CONTRASTon 11-18-2024 CT CHEST ANGIOGRAM W AND/OR WO IV CONTRAST Normal [facility] 36on 11-15-2024 36 Patient's BGL Normal [facility] 36on 11-14-2024 36 Noted. Request email ed to radiology team. Normal [facility] Progress Noteon 11-14-2024 Progress Note Normal [facility] 36on 11-13-2024 36 Normal [facility] BASIC METABOLIC PANELon Anion gap [Moles/Vol] 10 mmol/L Normal 3-13 [facility] Comment on above: Performed By: #### L AB15, LAB20, LAB99 ####Magazine Journalist: KEMAR ABEBE ([id number])[facility] (SBHLAB)[address] Calcium [Mass/Vol] 8.7 mg/dL Normal 8.4-10.2 [facility] Comment on above: Performed By: #### L AB15, LAB20, LAB99 ####Magazine Journalist: KEMAR ABEBE ([id number])[facility] (SBHLAB)[address] [place] [address] [place] Chloride [Moles/Vol] 105 mmol/L Normal 98-107 [facility] Comment on above: Performed By: #### L AB15, LAB20, LAB99 ####Magazine Journalist: KEMAR ABEBE ([id number])[facility] (SBHLAB)[address] [place] [address] [place] CO2 [Moles/Vol] 26 mmol/L Normal 22-29 [facility] Comment on above: Performed By: #### L AB15, LAB20, LAB99 ####Magazine Journalist: KEMAR ABEBE ([id number])[facility] (SBHLAB)[address] Creatinine [Mass/Vol] 1.01 mg/dL Normal [facility] Comment on above: Performed By: #### L AB15, LAB20, LAB99 ####Magazine Journalist: KEMAR ABEBE ([id number])[facility]ENTERWarren KASPERN (SBHLAB)[address] [place] [address] [place] GLOMERULAR FILTRATION RATE ML/MIN/1.73 SQ M.PREDICTED 64.7 mL/min/1.73m*2 Normal >60.0 [facility] Comment on above: Result Comment: Calc ulation based on the Chronic Kidney Disease Epidemiology Collaboration (CKD-EPI) equation refit without adjustment for race Performed By: #### L AB15, LAB20, LAB99 ####Magazine Journalist: KEMAR ABEBE ([id number])[facility]ENTERWarren [facility] (SBHLAB)[address] Glucose [Mass/Vol] 87 mg/dL Normal 74-100 [facility] Comment on above: Performed By: #### L AB15, LAB20, LAB99 ####Magazine Journalist: KEMAR ABEBE ([id number])[facility]ENTERWar[facility] (SBHLAB)[address] Potassium [Moles/Vol] 3.9 mmol/L Normal 3.5-5.1 [facility] Comment on above: Result Comment: [facility] potassium values may be up to 0.5 mmol/L lower than serum values. Performed By: #### L AB15, LAB20, LAB99 ####Magazine Journalist: KEMAR ABEBE ([id number])[facility]ENTERWarren KASPERN (SBHLAB)[address] [place] [address] [place] Sodium [Moles/Vol] 141 mmol/L Normal 136-145 [facility] Comment on above: Performed By: #### L AB15, LAB20, LAB99 ####Magazine Journalist: KEMAR ABEBE ([id number])[facility] (SBHLAB)[address] [place] [address] [place] Urea nitrogen [Mass/Vol] 18 mg/dL Normal 9-23 [facility] Comment on above: Performed By: #### L AB15, LAB20, LAB99 ####Magazine Journalist: KEMAR ABEBE ([id number])[facility] (SBHLAB)[address] [place] [address] Basic metabolic 1998 panelon 11-12-2024 Anion gap [Moles/Vol] 10 mmol/L 3 - 13 mmol/L [facility] Calcium [Mass/Vol] 8.7 mg/dL 8.4 - 10. 2 mg/dL [facility] Chloride [Moles/Vol] 105 mmol/L 98 - 10 7 mmol/L [facility] CO2 [Moles/Vol] 26 mmol/L 22 - 29 mmol/L [facility] Creatinine [Mass/Vol] 1.01 mg/dL [facility] GFR/1.73 sq M.predicted (S/P/Bld) [Vol rate/Area] 64.7 mL/min - PINF [facility] Comment on above: Calculation based on the Chronic Kidney Disease Epidemiology Collaboration (CKD-EPI) equation refit without adjustment for race Glucose [Mass/Vol] 87 mg/dL 74 - 100 mg/dL [facility] Potassium [Moles/Vol] 3.9 mmol/L 3.5 - 5.1 mmol/L [facility] Comment on above: Plasma potassium helen ues may be up to 0.5 mmol/L lower than serum values. Sodium [Moles/Vol] 141 mmol/L 136 - 145 mmol/L [facility] Urea nitrogen [Mass/Vol] 18 mg/dL 9 - 23 mg/dL [facility] CBC (HEMOGRAM)on 11-12-2024 Erythrocyte distribution width (RBC) [Ratio] 14.8 % Normal 11.5-15.0 [facility] Comment on above: Performed By: #### L [id number] ####Magazine Journalist: KEMAR ABEBE ([id number])[facility] (SBHLAB)[address] [place] [address] Hematocrit (Bld) [Volume fraction] 37.7 % Normal Male: 40.0-52.0 ; Female: 35.0-47.0 [facility] Comment on above: Performed By: #### L AB294 ####Magazine Journalist: KEMAR LUDWIGSAAD ([id number])[facility] CENTERWarren WADEKATIA (SBHLAB)[address] Hemoglobin (Bld) [Mass/Vol] 12.0 g/dL Normal 11.7-18.0 [facility] Comment on above: Performed By: #### L AB294 ####Magazine Journalist: KEMAR LUDWIGSAAD ([id number])[facility] CENTERWarren [facility]ADEPRESBYTER[facility] K[facility] HOSPITALJermaine (SBHLAB)[address] MCH (RBC) [Entitic mass] 27.2 pg Normal 26.0-34.0 [facility] Comment on above: Performed By: #### L AB294 ####Magazine Journalist: EKMAR LUDWIGSAAD ([id number])[facility] CENTERWarren WADEPRESBYTERIAN K[facility] HOSPITALJermaine (SBHLAB)[address] MCHC 31.8 % Normal 30.5-36.0 [facility] Comment on above: Performed By: #### L AB294 ####Magazine Journalist: KEMAR LUDWIGSAAD ([id number])[facility]ENTERWarren [facility] (SBHLAB)[address] MCV (RBC) [Entitic vol] 85.5 fL Normal 77.0-99.0 [facility] Comment on above: Performed By: #### L AB294 ####Magazine Journalist: KEMAR ABEBE ([id number])[facility]ENTERWarren [facility]ENTERJermaine (SBHLAB)[address] Platelet mean volume (Bld) [Entitic vol] 9.2 fL Normal 9.0-12.7 [facility] Comment on above: Performed By: #### L AB294 ####Magazine Journalist: KEMAR ABBEE ([id number])[facility]ENTERWarren [facility] (SBHLAB)[address] Platelets (Bld) [#/Vol] 391 10*3/uL Normal 140-440 [facility] Comment on above: Performed By: #### L AB294 ####Magazine Journalist: KEMAR ABEBE ([id number])[facility] (SBHLAB)[address] [place] [address] RBC (Bld) [#/Vol] 4.41 10*6/uL Normal Male: 4.40-5.90; Female: 3.80-5.20 [facility] Comment on above: Performed By: #### L AB294 ####Magazine Journalist: KEMAR ANDRAE ([id number])[facility] (SBHLAB)[address] [place] [address] WBC (Bld) [#/Vol] 8.6 10*3/uL Normal 3.6-10.7 [facility] Comment on above: Performed By: #### L AB294 ####Magazine Journalist: KEMAR ANDRAE ([id number])[facility] (SBAB)[address] [place] [address] CBC panel Auto (Bld)on 11-12 Erythrocyte distribution width (RBC) [Ratio] 14.8 % 11.5 - 15.0 % [facility] rocket staff Hematocrit (Bld) [Volume fraction] 37.7 % Male: 40.0-52.0 ; Female: 35.0-47.0 [facility] rocket staff Hemoglobin (Bld) [Mass/Vol] 12 g/dL 11.7 - 18.0 g/dL [facility] MCH (RBC) [Entitic mass] 27.2 pg 26.0 - 34.0 pg [facility] MCHC (RBC) [Mass/Vol] 31.8 % 30.5 - 36.0 % [facility] MCV (RBC) [Entitic vol] 85.5 fL 77.0 - 99.0 fL [facility] rocket staff Platelet mean volume (Bld) [Entitic vol] 9.2 fL 9.0 - 12.7 fL [facility] rocket staff Platelets (Bld) [#/Vol] 391 10*3/uL 140 - 440 10*3/uL [facility] RBC (Bld) [#/Vol] 4.41 10*6/uL Male: 4.40-5.90; Female: 3.80-5.20 [facility] WBC (Bld) [#/Vol] 8.6 10*3/uL 3.6 - 10.7 10*3/uL [facility] CT ABDOMEN PELVIS WO IV CONT RASTon 11-12-2024 CT ABDOMEN PELVIS WO IV CONTRAST Normal [facility] CT Abdomen and Pelvis WO con traston 11-12-2024 1. Decompressed gallbladder, with apparent cholelithiasis. 2. 9 mm nodular density right middle lobe not appreciably changed. 3. No other acute findings. Report Dictated on Electronically Signed By: Joel Haddad MD Electronically Signed Date/Time: 11/12/2024 11:13 PM [facility] [employer] Patient Name: WILL ALVARADO : 1965 [...] body habitus versus diastases-type ventral hernia, unchanged. [facility] [employer] Joel Haddad MD - 11/12/2024 Patient Name: WILL JACINTO : [address] [facility]#: [id number] Exam Date/Time: 11/12/2024 22:41 Procedure: CT ABDOMEN [...] Electronically Signed Date/Time: 11/12/2024 11:13 PM EST [facility] rocket staff Radiology Study observation (narrative) [facility] rocket staff CT Abdomen and Pelvis WO con trastOrdered By: Joel Haddad on 11-12-2024 [employer] rocket staff Work Phone: ED Provider Noteon ED Provider Note Normal [facility] rocket staff System [facility] HEPATIC FUNCTION PANELon Albumin [Mass/Vol] 3.3 g/dL Low 3.5-5.0 [facility] Comment on above: Performed By: #### L AB15, LAB20, LAB99 ####Magazine Journalist: KEMAR ABEBE ([id number])[facility] (SBHLAB)[address] ALP [Catalytic activity/Vol] 143 U/L Normal [facility] Comment on above: Performed By: #### Elijah AB15, LAB20, LAB99 ####Magazine Journalist: KEMAR ABEBE ([id number])[facility] [place] ([facility])[address] ALT [Catalytic activity/Vol] 65 U/L Normal [facility] Comment on above: Performed By: #### Elijah AB15, LAB20, LAB99 ####Magazine Journalist: KEMAR ABEBE ([id number])[facility] [place] ([facility])[address] AST [Catalytic activity/Vol] 42 U/L High <34 [facility] Comment on above: Performed By: #### Elijah OJEDA15, LAB20, LAB99 ####Magazine Journalist: KEMAR ABEBE ([id number])[facility] [place] ([facility])[address] Bilirubin [Mass/Vol] 0.4 mg/dL Normal <1.2 [facility] Comment on above: Performed By: #### Elijah AB15, LAB20, LAB99 ####Magazine Journalist: KEMAR ABEBE ([id number])[facility] [place] ([facility])[address] [place] [address] [place] Bilirubin.indirect [Mass/Vol] 0.2 mg/dL Normal <0.5 [facility] Comment on above: Performed By: #### L AB15, LAB20, LAB99 ####Magazine Journalist: KEMAR ABEBE ([id number])[facility] [place] ([facility])[address] [place] [address] [place] Protein [Mass/Vol] 6.8 g/dL Normal 6.4-8.3 [facility] Comment on above: Result Comment: Seru m protein values are higher than plasma values. Samples from recumbent persons are lower by up to 0.5 g/dL as compared to ambulatory persons. After 60 years values are lower by up to 0.2 g/dL. Performed By: #### L AB15, LAB20, LAB99 ####Magazine Journalist: KEMAR ABEBE ([id number])[facility] (SBHLAB)[address] [place] [address] Hepatic function 2000 panelo n 11-12-2024 Albumin [Mass/Vol] 3.3 g/dL Low 3.5 - 5.0 g/dL [facility] ALP [Catalytic activity/Vol] 143 U/L [facility] ALT [Catalytic activity/Vol] 65 U/L [facility] AST [Catalytic activity/Vol] 42 U/L High NINF - 34 U/L [facility] rocket staff Bilirubin [Mass/Vol] 0.4 mg/[facility]/dL [facility] Bilirubin.conjugated [Mass/Vol] 0.2 mg/dL [facility] mg/dL [facility] Interpretation and review of laboratory results Abnormal [facility] Protein [Mass/Vol] 6.8 g/dL 6.4 - 8.3 g/dL [facility] Comment on above: Serum protein values are higher than plasma values. Samples from recumbent persons are lower by up to 0.5 g/dL as compared to ambulatory persons. After 60 years values are lower by up to 0.2 g/dL. LIPASEon 11-12-2024 Lipase [Catalytic activity/Vol] 26 U/L Normal <55 [facility] Comment on above: Performed By: #### L AB15, LAB20, LAB99 ####Magazine Journalist: KEMAR ABEBE ([phone])[facility] (SB[facility])[address] [place] [address] Laboratory - Chemistry and C hemistry - challengeon 11-12-2024 Lipase [Catalytic activity/Vol] 26 U/L NINF - 55 U/L [facility] Lipase [Catalytic activity/V ol]on 11-12-2024 Interpretation and review of laboratory results Normal [facility] No Panel Informationon 11-12 [facility] Urine Cultureon 11-11-2024 [facility] UNKNOWN METHOD OF COLLECTION Mixed Gram Pos Gram Neg Org [place] Count 11,000-25,000 [facility] Mixed contaminants. Submit a new specimen if indicated. Normal [facility] Comment on above: Performed By: #### L 400.2010 #### [facility] [address] [place], [address] Bilirubin Test strip Ql (U)O rdered By: Jared Guzman on 11-10-2024 Bilirubin Ql (U) Negative Negative [facility] Epithelial cells.squamous LM Ql (Urine sed)Ordered By: Jared Guzman on 11-10-2024 Epithelial cells.squamous LM.HPF (Urine sed) [#/Area] 0 /[HPF] 5-10 [facility] Glucose Ql (U)Ordered By: Marcel Piper on 11-10-2024 Urine Glucose (UA) Normal mg/dl Normal [facility] Ketones Test strip Ql (U)Ord ered By: Jared Guzman on 11-10-2024 Ketones Ql (U) Negative Negative [facility] Microscopic analysis of urin e for red blood cells (RBC)Ordered By: Jared Guzman on 11-10-2024 Urine RBC 10-25 SEEN /hpf 0-5 [facility] Mucus LM Ql (Urine sed)Order ed By: Jared Guzman on 11-10-2024 Mucus Ql (Urine sed) 0 SEEN /hpf [facility] Nitrite Test strip Ql (U)Ord ered By: Jared Guzman on 11-10-2024 Nitrite Ql (U) Negative Negative [facility] Progress Noteon 11-10-2024 Progress Note Normal [facility] Protein Test strip Ql (U)Ord ered By: Jared Guzman on 11-10-2024 Protein Ql (U) 500 mg/dl High Negative [facility] Urinalysis, Completeon 11-10 EPI,SQUAMOUS 0-5 SEEN Normal 5-10 [facility] Comment on above: Order Comment: UNKNO WN METHOD OF COLLECTION CLEAN CATCH Performed By: #### M 100.2200, L400.0001 #### [facility] [address] [place], [address] RBC 10-25 SEEN Normal 0-5 [facility] Comment on above: Order Comment: UNKNO WN METHOD OF COLLECTION CLEAN CATCH Performed By: #### M 100.2200, L400.0001 #### [facility] [address] [place], [address] BACTERIA 3+ /hpf Normal None Seen [facility] Comment on above: Order Comment: UNKNO WN METHOD OF COLLECTION CLEAN CATCH Performed By: #### M 100.2200, L400.0001 #### [facility] [address] [place], [address] WBC 10-25 SEEN Normal 0-5 [facility] Comment on above: Order Comment: UNKNO WN METHOD OF COLLECTION CLEAN CATCH Performed By: #### M 100.2200, L400.0001 #### [facility] [address] [place], [address] Mucus Ql (Urine sed) 0 SEEN Normal [facility] Comment on above: Order Comment: UNKNO WN METHOD OF COLLECTION CLEAN CATCH Performed By: #### M 100.2200, L400.0001 #### [facility] [address] [place], [address] Urine blood detectionOrdered By: Jared Guzman on 11-10-2024 Urine Occult Blood 250 /ul High Negative [facility] Urine clarityOrdered By: Mike Guzman on 11-10-2024 Clarity (U) Cloudy Clear [facility] Urine color determinationOrd ered By: Jared Guzman on 11-10-2024 Color (U) Yellow Yellow [facility] Urine cultureOrdered By: Mike Guzman on 11-10-2024 Bacteria identified Cx Nom (U) Mixed Gram Pos & Gram Neg Org Abnormal [facility] Bacteria identified Cx Nom (U) Mixed Gram Pos & Gram Neg Org Abnormal [facility] Urine leukocyte esterase det ection by dipstickOrdered By: Jared Guzman on 11-10-2024 Leukocyte esterase Test strip Ql (U) 100 /ul High Negative [facility] Urine pHOrdered By: Jared moreno on 11-10-2024 pH (U) 6.0 [pH] 5.0 - 8.0 [facility] Urine sediment bacteria coun t by microscopy (number/high power field)Ordered By: Jared Guzman on 11-10-2024 Bacteria LM.HPF (Urine sed) [#/Area] 3 /[HPF] None Seen [facility] Urine specific gravity measu rementOrdered By: Jared Guzman on 11-10-2024 Specific gravity (U) [Rel density] 1.025 1.002-1.030 [facility] Urobilinogen Ql (U)Ordered B y: Jared Guzman on 11-10-2024 Urine Urobilinogen Normal mg/dl Normal [facility] White blood cell countOrdere d By: Jared Guzman on 11-10-2024 Urine WBC 10-25 SEEN /hpf 0-5 [facility] 36on 11-07-2024 36 Released msg to pt's nurse Ninfa. She verbalized understanding [facility] 36 Normal [facility] 36 Patient's BGL Normal [facility] 36on 10-30-2024 36 Released message to nurse [facility] 36 BG log reviewed. No changes to current meds. Send log as needed; otherwise, has appt 11/27 with Ana Maria. Please remind SNF to send BGL and MAR to visit. Thank you! Normal [facility] 36 Patient's BGL Normal [facility] Albumin to globulin ratioOrd ered By: Jared Guzman on 10-30-2024 Albumin/Globulin [Mass ratio] 0.8 {ratio} Low 0.9-2.4 [facility] Bilirubin, totalOrdered By: Jared Guzman on 10-30-2024 Bilirubin [Mass/Vol] 0.40 mg/dL 0.20-1.00 [facility] Comment on above: For patients on eltr ombopag therapy, use of Dimension [place] TBIL is not recommended. Blood urea nitrogen (BUN)/cr eatinine ratioOrdered By: Jared Guzman on 10-30-2024 Urea nitrogen/Creatinine [Mass ratio] 20.3 mg/mg High 10-20 [facility] CBC-Complete Blood Cnt No Di ffon 10-30-2024 Erythrocyte distribution width (RBC) [Ratio] 14.8 % High 11.6-14.6 [facility] Comment on above: Order Comment: 103-1 Performed By: #### L 500.4050, L100.0500 #### [facility] [address] [place], [address] Hematocrit (Bld) [Volume fraction] 32.9 % Low 37-47 [facility] Comment on above: Order Comment: 103-1 Performed By: #### L 500.4050, L100.0500 #### [facility] [address] [place], [address] Hemoglobin (Bld) [Mass/Vol] 10.2 g/dL Low 12.0-15.0 [facility] Comment on above: Order Comment: 103-1 Performed By: #### L 500.4050, L100.0500 #### [facility] [address] [place], [address] MCH (RBC) [Entitic mass] 27.1 pg Normal 27.0-32.0 [facility] Comment on above: Order Comment: 103-1 Performed By: #### L 500.4050, L100.0500 #### [facility] [address] [place], [address] MCHC (RBC) [Mass/Vol] 31.0 g/dL Low 32-36 [facility] Comment on above: Order Comment: 103-1 Performed By: #### L 500.4050, L100.0500 #### [facility] [address] [place], [address] MCV (RBC) [Entitic vol] 87.3 fL Normal 81-99 [facility] Comment on above: Order Comment: 103-1 Performed By: #### L 500.4050, L100.0500 #### [facility] [address] [place], [id number] Platelet mean volume (Bld) [Entitic vol] 9.7 fL Normal 6.2-12.0 [facility] Comment on above: Order Comment: 103-1 Performed By: #### L 500.4050, L100.0500 #### [facility] [address] [place], [id number] Platelets (Bld) [#/Vol] 387 10*3/uL Normal 150-450 [facility] Comment on above: Order Comment: 103-1 Performed By: #### L 500.4050, L100.0500 #### [facility] [address] [place], [id number] RBC (Bld) [#/Vol] 3.77 10*6/uL Low 4.2-5.4 [facility] Comment on above: Order Comment: 103-1 Performed By: #### L 500.4050, L100.0500 #### [facility] [address] [place], [id number] RDW SD 46.8 fl High 35.1-43.9 [facility] Comment on above: Order Comment: 103-1 Performed By: #### L 500.4050, L100.0500 #### [facility] [address] [place], [address] WBC (Bld) [#/Vol] 9.0 10*3/uL Normal 4.4-11.0 [facility] Comment on above: Order Comment: 103-1 Performed By: #### L 500.4050, L100.0500 #### [facility] [address] [place], [id number] Carbon dioxide measurementOr dered By: Jared Guzman on 10-30-2024 CO2 [Moles/Vol] 26.0 mmol/L 21.0-32.0 [facility] Chloride measurementOrdered By: Jared Guzman on 10-30-2024 Chloride [Moles/Vol] 108 mmol/L High 98-107 [facility] Comprehensive Metabolic Prof ilon 10-30-2024 Albumin [Mass/Vol] 2.8 g/dL Low 3.2-5.0 [facility] Comment on above: Order Comment: 103-1 Performed By: #### L 500.4050, L100.0500 #### [facility] [address] [place], [address] Albumin/Globulin [Mass ratio] 0.8 {ratio} Low 0.9-2.4 [facility] Comment on above: Order Comment: 103-1 Performed By: #### L 500.4050, L100.0500 #### [facility] [address] [place], [address] ALK P 113 U/L Normal 45-117 [facility] Comment on above: Order Comment: 103-1 Performed By: #### L 500.4050, L100.0500 #### [facility] [address] [place], [address] ALT [Catalytic activity/Vol] 25 U/L Normal 13-56 [facility] Comment on above: Order Comment: 103-1 Performed By: #### L 500.4050, L100.0500 #### [facility] [address] [place], [address] AST [Catalytic activity/Vol] 18 U/L Normal 15-37 [facility] Comment on above: Order Comment: 103-1 Performed By: #### L 500.4050, L100.0500 #### [facility] [address] [place], [address] Bilirubin [Mass/Vol] 0.40 mg/dL Normal 0.20-1.00 [facility] Comment on above: Order Comment: 103-1 Result Comment: For patients on eltrombopag therapy, use of Dimension [place] TBIL is not recommended. Performed By: #### L 500.4050, L100.0500 #### [facility] [address] [place], [id number] BUN/CRE 20.3 RATIO High 10-20 [facility] Comment on above: Order Comment: 103-1 Performed By: #### L 500.4050, L100.0500 #### [facility] [address] [place], [id number] CA,Total 8.8 mg/dL Normal 8.5-10.1 [facility] Comment on above: Order Comment: 103-1 Performed By: #### L 500.4050, L100.0500 #### [facility] [address] [place], [id number] Chloride [Moles/Vol] 108 mmol/L High 98-107 [facility] Comment on above: Order Comment: 103-1 Performed By: #### L 500.4050, L100.0500 #### [facility] [address] [place], [address] CO2 [Moles/Vol] 26.0 mmol/L Normal 21.0-32.0 [facility] Comment on above: Order Comment: 103-1 Performed By: #### L 500.4050, L100.0500 #### [facility] [address] [place], [address] Creatinine [Mass/Vol] 0.69 mg/dL Normal 0.55-1.02 [facility] Comment on above: Order Comment: 103-1 Result Comment: The validity of the calculated GFR GFRAA in patients over 70 years has not been determined. Clinical correlation is essential. Performed By: #### L 500.4050, L100.0500 #### [facility] [address] [place], [id number] EST GFR - AA 112 mL/min Normal >60 [facility] Comment on above: Order Comment: - Result Comment: Afri can Vincentian GFR Calc Performed By: #### L 500.4050, L100.0500 #### [facility] [address] [place], [address] GAP 5 Normal 5-15 [facility] Comment on above: Order Comment: 103- Performed By: #### L 500.4050, L100.0500 #### [facility] [address] [place], [address] GFR/1.73 sq M.predicted among non-blacks MDRD (S/P/Bld) [Vol rate/Area] 93 mL/min/{1.73_m2} Normal >60 [facility] Comment on above: Order Comment: Result Comment: Non- GFR Calc Performed By: #### L 500.4050, L100.0500 #### [facility] [address] [place], [address] Globulin (S) [Mass/Vol] 3.7 g/dL Normal 2.2-4.2 [facility] Comment on above: Order Comment: - Performed By: #### L 500.4050, L100.0500 #### [facility] [address] [place], [address] Glucose [Mass/Vol] 105 mg/dL Normal 74-106 [facility] Comment on above: Order Comment: 103- Result Comment: Fast ing Glucose result from 100 to 125 mg/dL suggests IMPAIRED HOMEOSTASIS per A.D.A. criteria. Performed By: #### L 500.4050, L100.0500 #### [facility] [address] [place], [address] Potassium [Moles/Vol] 4.4 mmol/L Normal 3.5-5.1 [facility] Comment on above: Order Comment: 103-1 Performed By: #### L 500.4050, L100.0500 #### [facility] [address] [place], [address] Sodium [Moles/Vol] 139 mmol/L Normal 136-145 [facility] Comment on above: Order Comment: 103-1 Performed By: #### L 500.4050, L100.0500 #### [facility] [address] [place], [address] T PROT 6.5 g/dL Normal 6.4-8.2 [facility] Comment on above: Order Comment: 103-1 Performed By: #### L 500.4050, L100.0500 #### [facility] [address] [place], [address] Urea nitrogen [Mass/Vol] 14 mg/dL Normal 7-18 [facility] Comment on above: Order Comment: 103-1 Performed By: #### L 500.4050, L100.0500 #### [facility] [address] [place], [address] Erythrocyte distribution wid th ratioOrdered By: Jared Guzman on 10-30-2024 Erythrocyte distribution width (RBC) [Ratio] 14.8 % High 11.6-14.6 [facility] Erythrocyte distribution wid th standard deviationOrdered By: Jared Guzman on 10-30-2024 Erythrocyte distribution width (RBC) [Entitic vol] 46.8 fL High 35.1-43.9 [facility] Estimated glomerular filtrat ion rate (GFR) AmericanOrdered By: Jared Guzman on 10-30-2024 Estimated GFR (MDRD) Amer 112 mL/min >60 [facility] Comment on above: GFR Calc Glomerular filtration rate ( GFR) estimationOrdered By: Jared Guzman on 10-30-2024 Estimated GFR (MDRD) Non-Af Amer 93 mL/min >60 [facility] Comment on above: Non- GFR Calc Glucose measurementOrdered B y: Jared Guzman on 10-30-2024 Glucose [Mass/Vol] 105 mg/dL 74-106 [facility] Comment on above: Fasting Glucose resu lt from 100 to 125 mg/dL suggests IMPAIRED HOMEOSTASIS per A.D.A. criteria. Hematocrit Auto (Bld) [Volum e fraction]Ordered By: Jared Guzman on 10-30-2024 Hematocrit (Bld) [Volume fraction] 32.9 % Low 37-47 [facility] Hemoglobin measurementOrdere d By: Jared Guzman on 10-30-2024 Hemoglobin (Bld) [Mass/Vol] 10.2 g/dL Low 12.0-15.0 [facility] Laboratory - Chemistry and C hemistry - challengeOrdered By: Jared Guzman on 10-30-2024 AST [Catalytic activity/Vol] 18 U/L 15-37 [facility] MCV (mean corpuscular volume ) determinationOrdered By: Jared Guzman on 10-30-2024 MCV (RBC) [Entitic vol] 87.3 fL 81-99 [facility] Mean corpuscular hemoglobin (MCH) determinationOrdered By: Jared Guzman on 10-30-2024 MCH (RBC) [Entitic mass] 27.1 pg 27.0-32.0 [facility] Mean corpuscular hemoglobin concentration (MCHC) determinationOrdered By: Jared Guzman on 10-30-2024 MCHC (RBC) [Mass/Vol] 31.0 g/dL Low 32-36 [facility] Mean platelet volume determi nationOrdered By: Jared Guzman on 10-30-2024 Platelet mean volume (Bld) [Entitic vol] 9.7 fL 6.2-12.0 [facility] Platelet countOrdered By: Marcel Piper on 10-30-2024 Platelets (Bld) [#/Vol] 387 10*3/uL 150-450 [facility] [facility] Potassium measurementOrdered By: Jared Guzman on 10-30-2024 Potassium [Moles/Vol] 4.4 mmol/L 3.5-5.1 [facility] RBC Auto (Bld) [#/Vol]Ordere d By: Jared Guzman on 10-30-2024 RBC (Bld) [#/Vol] 3.77 10*6/uL Low 4.2-5.4 [facility] Serum anion gap measurementO rdered By: Jared Guzman on 10-30-2024 Anion gap [Moles/Vol] 5 mmol/L 5-15 [facility] Serum globulin measurementOr dered By: Jared Guzman on 10-30-2024 Globulin (S) [Mass/Vol] 3.7 g/dL 2.2-4.2 [facility] Serum or plasma alanine jones otransferase (ALT) measurementOrdered By: Jared Guzman on 10-30-2024 ALT [Catalytic activity/Vol] 25 U/L 13-56 [facility] Serum or plasma albumin mauricio urement (mass/volume)Ordered By: Jared Guzman on 10-30-2024 Albumin [Mass/Vol] 2.8 g/dL Low 3.2-5.0 [facility] Serum or plasma alkaline abbey sphatase measurementOrdered By: aJred Guzman on 10-30-2024 ALP [Catalytic activity/Vol] 113 U/L 45-117 [facility] Serum or plasma calcium mauricio urement (mass/volume)Ordered By: Jared Guzman on 10-30-2024 Calcium [Mass/Vol] 8.8 mg/dL 8.5-10.1 [facility] Serum or plasma creatinine m easurement (mass/volume)Ordered By: Jared Guzman on 10-30-2024 Creatinine [Mass/Vol] 0.69 mg/dL 0.55-1.02 [facility] Comment on above: The validity of the calculated GFR & GFRAA in patients over 70 years has not been determined. Clinical correlation is essential. Serum or plasma urea nitroge n measurement (mass/volume)Ordered By: Jared Guzman on 10-30-2024 Urea nitrogen [Mass/Vol] 14 mg/dL 7-18 [facility] Sodium levelOrdered By: Main Guzman on 10-30-2024 Sodium [Moles/Vol] 139 mmol/L 136-145 [facility] Total proteinOrdered By: Mike Guzman on 10-30-2024 Protein [Mass/Vol] 6.5 g/dL 6.4-8.2 [facility] White blood cell (WBC) count Ordered By: Jared Guzman on 10-30-2024 WBC (Bld) [#/Vol] 9.0 10*3/uL 4.4-11.0 [facility] ECG 12-LEADon 2024 ECG 12-LEAD IMPRESSION: Sinus rhythm Left bundle branch block Compared to ECG 10/18/24 No significant change Electronically Signed On 2024 00:25:40 EST by Fermin Melchor Normal [facility] 36on 10-24-2024 36 Shayy called back w e scheduled an appointment with Ana Maria on 11/27/24 and another one on 03/27/25 with Thalia. Normal [facility] 36 Normal [facility] CBC (HEMOGRAM)on 10-24-2024 Erythrocyte distribution width (RBC) [Ratio] 13.8 % Normal 11.5-15.0 [facility] Comment on above: Performed By: #### L [id number] ####Magazine Journalist: KEMAR ABEBE ([id number])[facility] ([facility])[address] [place] [address] Hematocrit (Bld) [Volume fraction] 39.3 % Normal Male: 40.0-52.0 ; Female: 35.0-47.0 [facility] Comment on above: Performed By: #### L [id number] ####Magazine Journalist: KEMAR ABEBE ([id number])[facility] ([facility])[address] [place] [address] Hemoglobin (Bld) [Mass/Vol] 12.3 g/dL Normal 11.7-18.0 [facility] Comment on above: Performed By: #### L [id number] ####Magazine Journalist: KEMAR ABEBE ([id number])[facility] ([facility])[address] [place] [address] MCH (RBC) [Entitic mass] 27.0 pg Normal 26.0-34.0 [facility] Comment on above: Performed By: #### L [id number] ####Magazine Journalist: KEMAR ABEBE ([id number])[facility] ([facility])[address] [place] [address] MCHC 31.3 % Normal 30.5-36.0 [facility] Comment on above: Performed By: #### L [id number] ####Magazine Journalist: KEMAR ABEBE ([id number])NATI WADEKATIA ([facility])[address] MCV (RBC) [Entitic vol] 86.2 fL Normal 77.0-99.0 [facility] Comment on above: Performed By: #### L [id number] ####Magazine Journalist: KEMAR ABEBE ([id number])[facility] CENTERWarren WADEPRESBYTERIAN KASEM[facility] HOSPITALJermaine ([facility])[address] Platelet mean volume (Bld) [Entitic vol] 9.7 fL Normal 9.0-12.7 [facility] Comment on above: Performed By: #### L [id number] ####Magazine Journalist: KEMAR ABEBE ([id number])[facility] CENTERWarren WADEKATIA ([facility])[address] Platelets (Bld) [#/Vol] 465 10*3/uL High 140-440 [facility] Comment on above: Performed By: #### L [id number] ####Magazine Journalist: KEMAR ABEBE ([id number])[facility] CENTERWarren WADEKATIA ([facility])[address] [place] [address] RBC (Bld) [#/Vol] 4.56 10*6/uL Normal Male: 4.40-5.90; Female: 3.80-5.20 [facility] Comment on above: Performed By: #### L [id number] ####Magazine Journalist: KEMAR ABEBE ([id number])[facility] CENTERWarren [facility]ADEPRESBYTER[facility] K[facility] HOSPITALN ([facility])[address] [place] [address] [place] WBC (Bld) [#/Vol] 9.8 10*3/uL Normal 3.6-10.7 [facility] Comment on above: Performed By: #### L [id number] ####Magazine Journalist: KEMAR ABEBE ([id number])[facility] ([facility])[address] CBC panel Auto (Bld)Ordered By: Justin Mao on 10-24-2024 Erythrocyte distribution width (RBC) [Ratio] 13.8 % 11.5 - 15.0 % [facility] Hematocrit (Bld) [Volume fraction] 39.3 % Male: 40.0-52.0 ; Female: 35.0-47.0 [facility] Hemoglobin (Bld) [Mass/Vol] 12.3 g/dL 11.7 - 18.0 g/dL [facility] Interpretation and review of laboratory results Abnormal [facility] MCH (RBC) [Entitic mass] 27 pg 26.0 - 34.0 pg [facility] MCHC (RBC) [Mass/Vol] 31.3 % 30.5 - 36.0 % [facility] MCV (RBC) [Entitic vol] 86.2 fL 77.0 - 99.0 fL [facility] Platelet mean volume (Bld) [Entitic vol] 9.7 fL 9.0 - 12.7 fL [facility] Platelets (Bld) [#/Vol] 465 10*3/uL High 140 - 440 10*3/uL [facility] RBC (Bld) [#/Vol] 4.56 10*6/uL Male: 4.40-5.90; Female: 3.80-5.20 [facility] WBC (Bld) [#/Vol] 9.8 10*3/uL 3.6 - 10.7 10*3/uL [facility] COMPLETE URINALYSISon 2023 BACTERIA (#/HPF) IN URINE Negative Normal Negative [facility] Comment on above: Performed By: #### L [id number] ####Magazine Journalist: KEMAR ABEBE ([id number])[facility] ([facility])[address] BILIRUBIN, TOTAL PRESENCE IN URINE Negative Normal Negative [facility] Comment on above: Performed By: #### L [id number] ####Magazine Journalist: KEMAR ABEBE ([id number])[facility] ([facility])[address] Clarity (U) Clear Normal Clear [facility] Comment on above: Performed By: #### L [id number] ####Magazine Journalist: KEMAR ABEBE ([phone])[facility] CENTERA [facility] CENTERJermaine ([facility])[address] Color (U) Light Yellow Normal Lt. Yellow [facility] Comment on above: Performed By: #### L [id number] ####Magazine Journalist: KEMAR ABEBE ([id number])[facility] (SB[facility])[address] GLUCOSE (MG/DL) IN URINE Normal Normal Normal (<70) [facility] Comment on above: Performed By: #### L [id number] ####Magazine Journalist: KEMAR ABEBE ([id number])[facility]NA HOSPITALJermaine ([facility])[address] [place] [address] HEMOGLOBIN PRESENCE IN URINE Negative Normal Negative [facility] Comment on above: Performed By: #### L [id number] ####Magazine Journalist: KEMAR ABEBE ([id number])[facility] ([facility])[address] Ketones Ql (U) Negative Normal Negative [facility] Comment on above: Performed By: #### L [id number] ####Magazine Journalist: KEMAR ABEBE ([id number])[facility] ([facility])[address] LEUKOCYTE ESTERASE PRESENCE IN URINE BY TEST STRIP Negative Normal Negative [facility] Comment on above: Performed By: #### L [id number] ####Magazine Journalist: KEMAR ABEBE ([id number])[facility] (SB[facility])[address] [place] [address] [place] MUCUS (#/LPF) IN URINE SEDIMENT Few Normal Negative [facility] Comment on above: Performed By: #### L [id number] ####Magazine Journalist: KEMAR ABEBE ([id number])[facility] ([facility])[address] [place] [address] [place] NITRITE PRESENCE IN URINE Negative Normal Negative [facility] Comment on above: Performed By: #### L [id number] ####Magazine Journalist: KEMAR ABEBE ([id number])[facility] CENTERWarren TYNAN ([facility])[address] NON-SQUAMOUS EPITHELIAL (#/HPF) IN URINE 3-5 Abnormal Negative [facility] Comment on above: Performed By: #### L [id number] ####Magazine Journalist: KEMAR ABEBE ([id number])[facility] CENTERWarren TYNAN ([facility])[address] pH (U) 7.0 [pH] Normal 5.0-8.0 [facility] Comment on above: Performed By: #### L [id number] ####Magazine Journalist: KEMAR ABEBE ([id number])[facility] ([facility])[address] Protein (U) [Mass/Vol] 70 mg/dL Abnormal Negative [facility] Comment on above: Performed By: #### L [id number] ####Magazine Journalist: KEMAR ABEBE ([id number])[facility]ENTERWarren TYNAN ([facility])[address] RBC (#/HPF) IN URINE SEDIMENT 3-5 Abnormal 0-2 [facility] Comment on above: Performed By: #### L [id number] ####Magazine Journalist: KEMAR ABEBE ([id number])[facility] ([facility])[address] Specific gravity (U) [Rel density] 1.011 Normal 1.005-1.030 [facility] Comment on above: Performed By: #### L [id number] ####Magazine Journalist: KEMAR ABEBE ([id number])[facility] ([facility])[address] SQUAMOUS EPITHELIAL CELLS (#/HPF) IN URINE SEDIMENT 0-2 Normal 3-5 [facility] Comment on above: Performed By: #### L [id number] ####Magazine Journalist: KEMAR ABEBE ([id number])[facility] CENTERWarren WADEPRESBYTER[facility] K[facility]OSPITALN ([facility])[address] UROBILINOGEN (MG/DL) IN URINE Normal Normal Normal (0-1) [facility] Comment on above: Performed By: #### L [id number] ####Magazine Journalist: KEMAR ABEBE ([id number])[facility]ENTERWarren [facility] ([facility])[address] WBC (LEUKOCYTE) (#/HPF) IN URINE SEDIMENT 6-10 Abnormal 0-5 [facility] Comment on above: Performed By: #### L [id number] ####Magazine Journalist: KEMAR LUDWIGSAAD ([id number])[facility] ([facility])[address] [place] [address] COMPREHENSIVE METABOLIC PANE Gigi 10-24-2024 Albumin [Mass/Vol] 3.0 g/dL Low 3.5-5.0 [facility] Comment on above: Performed By: #### L [id number], LAB17 ####Magazine Journalist: KEMAR ABEBE ([id number])[facility]ENTERWarren TYNAN ([facility])[address] ALP [Catalytic activity/Vol] 117 U/L Normal [facility] Comment on above: Performed By: #### L [id number], LAB17 ####Magazine Journalist: KEMAR ABEBE ([id number])[facility]ENTERWarren [facility] ([facility])[address] ALT [Catalytic activity/Vol] 22 U/L Normal [facility] Comment on above: Performed By: #### L [id number], LAB17 ####Magazine Journalist: KEMAR ABEBE ([id number])[facility]ENTERA [facility]ERN ([facility])[address] Anion gap [Moles/Vol] 10 mmol/L Normal 3-13 [facility] Comment on above: Performed By: #### L [id number], LAB17 ####Magazine Journalist: KEMAR ABEBE ([id number])[facility] ([facility])[address] AST [Catalytic activity/Vol] 28 U/L Normal <34 [facility] Comment on above: Performed By: #### L [id number], LAB17 ####Magazine Journalist: KEMAR ABEBE ([id number])[facility] ([facility])[address] Bilirubin [Mass/Vol] 0.4 mg/dL Normal <1.2 [facility] Comment on above: Performed By: #### L [id number], LAB17 ####Magazine Journalist: KEMAR ABEBE ([id number])[facility] ([facility])[address] Calcium [Mass/Vol] 9.3 mg/dL Normal 8.4-10.2 [facility] Comment on above: Performed By: #### L [id number], LAB17 ####Magazine Journalist: KEMAR ABEBE ([id number])[facility] ([facility])[address] [place] [address] [place] Chloride [Moles/Vol] 100 mmol/L Normal 98-107 [facility] Comment on above: Performed By: #### L [id number], LAB17 ####Magazine Journalist: KEMAR ABEBE ([id number])[facility] ([facility])[address] [place] [address] [place] CO2 [Moles/Vol] 27 mmol/L Normal 22-29 [facility] Comment on above: Performed By: #### L [id number], LAB17 ####Magazine Journalist: KEMAR ABEBE ([id number])[facility] ([facility])[address] Creatinine [Mass/Vol] 0.84 mg/dL Normal [facility] Comment on above: Performed By: #### L [id number], LAB17 ####Magazine Journalist: KEMAR ABEBE ([id number])[facility]ENTERWarren [facility]ARIZONA [facility] (SB[facility])[address] [place] [address] [place] GLOMERULAR FILTRATION RATE ML/MIN/1.73 SQ M.PREDICTED 81.2 mL/min/1.73m*2 Normal >60.0 [facility] Comment on above: Result Comment: Calc ulation based on the Chronic Kidney Disease Epidemiology Collaboration (CKD-EPI) equation refit without adjustment for race Performed By: #### L [id number], LAB17 ####Magazine Journalist: KEMAR ABEBE ([id number])[facility]ENTERWarren [facility]IZ[facility] ([facility])[address] [place] [address] [place] Glucose [Mass/Vol] 207 mg/dL High 74-100 [facility] Comment on above: Performed By: #### L [id number], LAB17 ####Magazine Journalist: KEMAR ABEBE ([id number])[facility] ([facility])[address] [place] [address] [place] Potassium [Moles/Vol] 4.6 mmol/L Normal 3.5-5.1 [facility] Comment on above: Result Comment: [facility] potassium values may be up to 0.5 mmol/L lower than serum values. Performed By: #### L [id number], LAB17 ####Magazine Journalist: KEMAR ABEBE ([id number])[facility]ENTERWarren [facility] ([facility])[address] [place] [address] [place] Protein [Mass/Vol] 7.0 g/dL Normal 6.4-8.3 [facility] Comment on above: Performed By: #### L [id number], LAB17 ####Magazine Journalist: KEMAR ABEBE ([id number])[facility] ([facility])[address] [place] [address] [place] Sodium [Moles/Vol] 137 mmol/L Normal 136-145 [facility] Comment on above: Performed By: #### L [id number], LAB17 ####Magazine Journalist: KEMAR ABEBE ([id number])[facility]ENTERA TY[facility]N ([facility])[address] Urea nitrogen [Mass/Vol] 15 mg/dL Normal - [facility] Comment on above: Performed By: #### L [id number], LAB17 ####Magazine Journalist: KEMAR ABEBE ([id number])[facility] YARITZA ([facility])[address] Comprehensive metabolic 1998 panelOrdered By: Hans Watson on 10-24-2024 Albumin [Mass/Vol] 3 g/dL Low 3.5 - 5.0 g/dL [facility] ALP [Catalytic activity/Vol] 117 U/L [facility] ALT [Catalytic activity/Vol] 22 U/L [facility] Anion gap [Moles/Vol] 10 mmol/L 3 - 13 mmol/L [facility] AST [Catalytic activity/Vol] 28 U/L NINF - 34 U/L [facility] Bilirubin [Mass/Vol] 0.4 mg/dL NINF - 1.2 mg/dL [facility] Calcium [Mass/Vol] 9.3 mg/dL 8.4 - 10. 2 mg/dL [facility] Chloride [Moles/Vol] 100 mmol/L 98 - 10 7 mmol/L [facility] CO2 [Moles/Vol] 27 mmol/L 22 - 29 mmol/L [facility] Creatinine [Mass/Vol] 0.84 mg/dL [facility] GFR/1.73 sq M.predicted (S/P/Bld) [Vol rate/Area] 81.2 mL/min - PINF [facility] Comment on above: Calculation based on the Chronic Kidney Disease Epidemiology Collaboration (CKD-EPI) equation refit without adjustment for race Glucose [Mass/Vol] 207 mg/dL High 74 - 100 mg/dL [facility] Interpretation and review of laboratory results Abnormal [facility] Potassium [Moles/Vol] 4.6 mmol/L 3.5 - 5.1 mmol/L [facility] Comment on above: Plasma potassium helen ues may be up to 0.5 mmol/L lower than serum values. Protein [Mass/Vol] 7 g/dL 6.4 - 8.3 g/dL [facility] Sodium [Moles/Vol] 137 mmol/L 136 - 145 mmol/L [facility] Urea nitrogen [Mass/Vol] 15 mg/dL 9 - 23 mg/dL [facility] ED Nursing Noteon 10-24-2024 ED Nursing Note Pt placed on bedpan, urine sample collected and sent to lab. Normal [facility] ED Nursing Note Pt provided with sandwich and pop, ok per Dr Mixon Normal [facility] ED Nursing Note Normal [facility] ED Nursing Note Pt arrives by [facility] Chris SALEH for blood in urine and change in mental status. Pt has chronic lewis and has blood present. BP elevated, BG 154 (low per SNF because pt is normally in 300 range). Pt is DNR-CCA. Normal [facility] ED Provider Noteon ED Provider Note Normal [facility] HIGH SENSITIVITY TROPONIN, S ERIAL BASELINEon 10-24-2024 TROPONIN HIGH SENSITIVITY BASELINE <3 Normal [facility] Comment on above: Performed By: #### L [id number], LAB17 ####Magazine Journalist: KEMAR ABEBE ([id number])[facility]ENTERWarren [facility] ([facility])[address] [place] [address] LACTIC ACID WITH REFLEXon Lactate [Moles/Vol] 1.5 mmol/L Normal 0.5-2.2 [facility] Comment on above: Performed By: #### L [id number] ####Magazine Journalist: KEMAR ABEBE ([id number])[facility]ENTERWarren [facility] ([facility])[address] [place] [address] Laboratory - Chemistry and C hemistry - challengeon 10-24-2024 Lactate [Moles/Vol] 1.5 mmol/L 0.5 - 2. 2 mmol/L [facility] Glucose [Mass/Vol] 175 mg/dL High 70 - 100 mg/dL [facility] No Panel Informationon 10-24 Troponin HS, Serial Baseline ng/L ng/L [facility] Interpretation and review of laboratory results Normal [facility] Interpretation and review of laboratory results Abnormal [facility] Performed by: [facility], [address] [place] [address] CLIA ID: [id number] [facility] Urinalysis complete panel (U )on 10-24-2024 Bacteria LM.HPF (Urine sed) [#/Area] Negative Negative /HPF [facility] Bilirubin Ql (U) Negative Negative mg/dL [facility] Clarity (U) Clear Clear [facility] Color (U) Light Yellow Lt. Yellow [facility] Epithelial cells.squamous LM.HPF (Urine sed) [#/Area] 0-2 [facility] Glucose Ql (U) Normal Normal (<70) mg/dL [facility] Hemoglobin Ql (U) Negative Negative mg/dL [facility] Interpretation and review of laboratory results Abnormal [facility] Ketones (U) [Mass/Vol] Negative Negat bernard mg/dL [facility] Leukocyte esterase Test strip Ql (U) Negative Negative Kat/uL [facility] Mucus LM.HPF (Urine sed) [#/Area] Few Negative /LPF [facility] Nitrite Ql (U) Negative Negative [facility] Non-Squamous Epithalial Cells, Urine 3-5 Abnormal Negative /HPF [facility] pH (U) 7.0 [pH] 5.0 - 8.0 pH [facility] Protein (U) [Mass/Vol] 70 mg/dL Abnormal Negative [facility] RBC LM.HPF (Urine sed) [#/Area] 3-5 Abnormal [facility] Specific gravity (U) [Rel density] 1.011 1.005 - 1.030 [facility] Urobilinogen (U) [Mass/Vol] Normal Normal (0-1) mg/dL [facility] WBC LM.HPF (Urine sed) [#/Area] 6-10 Abnormal [facility] [id number] 10-23-2024 [id number] Normal [facility] [id number] Discharge med list transmitted to return back to [facility] via [facility] per TCC request. [facility] [id number] [facility] [phone] DC orders in and sig nazario by Dr. Thomas. DIRECTOR MEDICAL SURGICAL set up transport. [facility] tasked in [facility] to send DC info [facility] . DC back to [facility] in stable condition. . Normal [facility] CBC W Auto Differential pane l (Bld)on 10-23-2024 Basophils (Bld) [#/Vol] 0.1 10*3/uL 0.0 - 0.2 10*3/uL [facility] Basophils/100 WBC (Bld) 0.7 % 0.0 - 2.0 % [facility] Eosinophils (Bld) [#/Vol] 0.2 10*3/uL 0.0 - 0.5 10*3/uL [facility] Eosinophils/100 WBC (Bld) 2.4 % 0.0 - 6.0 % [facility] Erythrocyte distribution width (RBC) [Ratio] 13.5 % 11.5 - 15.0 % [facility] Hematocrit (Bld) [Volume fraction] 29.9 % Male: 40.0-52.0 ; Female: 35.0-47.0 [facility] Hemoglobin (Bld) [Mass/Vol] 9.5 g/dL Low 11.7 - 18.0 g/dL [facility] Immature granulocytes (Bld) [#/Vol] 0.1 10*3/uL High NINF - 0.1 10*3/uL [facility] Immature granulocytes/100 WBC (Bld) 1.5 % 0.0 - 2.0 % [facility] Interpretation and review of laboratory results Abnormal [facility] Lymphocytes (Bld) [#/Vol] 1.8 10*3/uL 1.0 - 4.3 10*3/uL [facility] Lymphocytes/100 WBC (Bld) 24.6 % 15.0 - 45.0 % [facility] MCH (RBC) [Entitic mass] 27.1 pg 26.0 - 34.0 pg [facility] MCHC (RBC) [Mass/Vol] 31.8 % 30.5 - 36.0 % [facility] MCV (RBC) [Entitic vol] 85.2 fL 77.0 - 99.0 fL [facility] Monocytes (Bld) [#/Vol] 0.8 10*3/uL 0.0 - 0.9 10*3/uL [facility] Monocytes/100 WBC (Bld) 10.6 % 5.0 - 13.0 % [facility] Neutrophils (Bld) [#/Vol] 4.5 10*3/uL 1.8 - 7.5 10*3/uL [facility] Neutrophils/100 WBC (Bld) 60.2 % 38.0 - 82.0 % [facility] Nucleated RBC/100 WBC (Bld) [Ratio] 0 % [facility] Platelet mean volume (Bld) [Entitic vol] 9.6 fL 9.0 - 12.7 fL [facility] Platelets (Bld) [#/Vol] 407 10*3/uL 140 - 440 10*3/uL [facility] RBC (Bld) [#/Vol] 3.51 10*6/uL Male: 4.40-5.90; Female: 3.80-5.20 [facility] WBC (Bld) [#/Vol] 7.5 10*3/uL 3.6 - 10.7 10*3/uL [facility] CBC WITH AUTO DIFFERENTIALon 10-23-2024 Basophils (Bld) [#/Vol] 0.1 10*3/uL Normal 0.0-0.2 [facility] Comment on above: Performed By: #### L [id number] ####Magazine Journalist: KEMAR ABEBE ([phone])[facility] (SBAB)[address] Basophils/100 WBC (Bld) 0.7 % Normal 0.0-2.0 [facility] Comment on above: Performed By: #### L [id number] ####Magazine Journalist: KEMAR ABEBE ([phone])[facility] ([facility])[address] Eosinophils (Bld) [#/Vol] 0.2 10*3/uL Normal 0.0-0.5 [facility] Comment on above: Performed By: #### L [id number] ####Magazine Journalist: KEMAR ABEBE ([phone])[facility] (SBAB)[address] Eosinophils/100 WBC (Bld) 2.4 % Normal 0.0-6.0 [facility] Comment on above: Performed By: #### L [id number] ####Magazine Journalist: KEMAR BANUELOSCER ([id number])[facility] (SBHLAB)[address] [place] [address] Erythrocyte distribution width (RBC) [Ratio] 13.5 % Normal 11.5-15.0 [facility] Comment on above: Performed By: #### L [id number] ####Magazine Journalist: KEMAR LUDWIGSAAD ([phone])[facility] ([facility] [place] [address] Hematocrit (Bld) [Volume fraction] 29.9 % Normal Male: 40.0-52.0 ; Female: 35.0-47.0 [facility] Comment on above: Performed By: #### L [id number] ####Magazine Journalist: KEMAR LUDWIGSAAD ([phone])[facility] ([facility])[address] [place] [address] Hemoglobin (Bld) [Mass/Vol] 9.5 g/dL Low 11.7-18.0 [facility] Comment on above: Performed By: #### L [id number] ####Magazine Journalist: KEMAR LUDWIGSAAD ([phone])[facility] ([facility] IMMATURE GRANS % 1.5 % Normal 0.0-2.0 [facility] Comment on above: Performed By: #### L [id number] ####Magazine Journalist: KEMAR ABEBE ([id number])[facility] ([facility] IMMATURE GRANS ABSOLUTE 0.1 10*3/uL High <0.1 [facility] Comment on above: Performed By: #### L [id number] ####Magazine Journalist: KEMAR LUDWIGSAAD ([id number])[facility] ([facility] Lymphocytes (Bld) [#/Vol] 1.8 10*3/uL Normal 1.0-4.3 [facility] Comment on above: Performed By: #### L [id number] ####Magazine Journalist: KEMAR LUDWIGSAAD ([id number])NATI KASPERJermaine (SBHLAB)[address] Lymphocytes/100 WBC (Bld) 24.6 % Normal 15.0-45.0 [facility] Comment on above: Performed By: #### L [id number] ####Magazine Journalist: KEMAR LUDWIGSAAD ([phone])[facility]ENTERWarren WADEPRESBYTER[facility] KAS[facility] HOSPITALJermaine (SBHLAB)[address] MCH (RBC) [Entitic mass] 27.1 pg Normal 26.0-34.0 [facility] Comment on above: Performed By: #### L [id number] ####Magazine Journalist: KEMAR LUDWIGSAAD ([phone])[facility] CENTERWarren KASPERJermaine (SBHLAB)[address] [place] [address] MCHC 31.8 % Normal 30.5-36.0 [facility] Comment on above: Performed By: #### L [id number] ####Magazine Journalist: KEMAR MOMINHiginioSAAD ([phone])[facility] CENTERWarren KASPERJermaine (SBHLAB)[address] [place] [address] MCV (RBC) [Entitic vol] 85.2 fL Normal 77.0-99.0 [facility] Comment on above: Performed By: #### L [id number] ####Magazine Journalist: KEMAR ABEBE ([id number])[facility] CENTERWarren WADEKATIA (SBHLAB)[address] [place] [address] Monocytes (Bld) [#/Vol] 0.8 10*3/uL Normal 0.0-0.9 [facility] Comment on above: Performed By: #### L [id number] ####Magazine Journalist: KEMAR LUDWIGSAAD ([id number])[facility]ENTERWarren WADEPRESBYTER[facility] KAS[facility] HOSPITALJermaine (SBHLAB)[address] Monocytes/100 WBC (Bld) 10.6 % Normal 5.0-13.0 [facility] Comment on above: Performed By: #### L [id number] ####Magazine Journalist: KEMAR MOMINHiginioSAAD ([phone])[facility] (SBHLAB)[address] NEUTROPHILS ABSOLUTE 4.5 10*3/uL Normal 1.8-7.5 [facility] Comment on above: Performed By: #### L [id number] ####Magazine Journalist: KEMARDU ABEBE ([id number])[facility]ENTERA [place] (SBHLAB)[address] Neutrophils/100 WBC (Bld) 60.2 % Normal 38.0-82.0 [facility] Comment on above: Performed By: #### L [id number] ####Magazine Journalist: KEMAR ABEBE ([phone])[facility]A [place] (SBHLAB)[address] NRBC 0.0 /100 WBCs Normal 0.0-2.0 [facility] Comment on above: Performed By: #### L [id number] ####Magazine Journalist: KEMAR ANDRAE ([phone])[facility] [place] (SBHLAB)[address] Platelet mean volume (Bld) [Entitic vol] 9.6 fL Normal 9.0-12.7 [facility] Comment on above: Performed By: #### L [id number] ####Magazine Journalist: KEMAR MOMINHARRISON ([id number])[facility] [place] (SBHLAB)[address] [place] [address] [place] Platelets (Bld) [#/Vol] 407 10*3/uL Normal 140-440 [facility] Comment on above: Performed By: #### L [id number] ####Magazine Journalist: KEMAR MOMINHARRISON ([id number])[facility] [place] (SBHLAB)[address] RBC (Bld) [#/Vol] 3.51 10*6/uL Normal Male: 4.40-5.90; Female: 3.80-5.20 [facility] Comment on above: Performed By: #### L [id number] ####Magazine Journalist: KEMAR BANUELOSCER ([phone])[facility]ENTERWarren [place] (SBHLAB)[address] WBC (Bld) [#/Vol] 7.5 10*3/uL Normal 3.6-10.7 [facility] Comment on above: Performed By: #### L [id number] ####Magazine Journalist: KEMAR ABEBE ([phone])[facility]ENTERA MAJON (SBHLAB)[address] COMPREHENSIVE METABOLIC PANE Gigi 10-23-2024 Albumin [Mass/Vol] 2.6 g/dL Low 3.5-5.0 [facility] Comment on above: Performed By: #### L AB17, [id number] ####Magazine Journalist: KEMAR ABEBE ([id number])[facility] CENTERWarren WADEKATIA (SBHLAB)[address] ALP [Catalytic activity/Vol] 115 U/L Normal [facility] Comment on above: Performed By: #### L AB17, [id number] ####Magazine Journalist: KEMAR ABEBE ([id number])[facility]ENTERWarren KASPERN (SBHLAB)[address] ALT [Catalytic activity/Vol] 27 U/L Normal [facility] Comment on above: Performed By: #### L AB17, [id number] ####Magazine Journalist: KEMAR ABEBE ([id number])[facility] CENTERWarren WADEMRAYN (SBHLAB)[address] Anion gap [Moles/Vol] 7 mmol/L Normal 3-13 [facility] Comment on above: Performed By: #### L AB17, [id number] ####Magazine Journalist: KEMAR ABEBE ([id number])[facility]ENTERWarren WADEMARYN (SBHLAB)[address] AST [Catalytic activity/Vol] 18 U/L Normal <34 [facility] Comment on above: Performed By: #### L AB17, [id number] ####Magazine Journalist: KEMAR ABEBE ([id number])NATI WADEKATIA (SBHLAB)[address] Bilirubin [Mass/Vol] 0.3 mg/dL Normal <1.2 [facility] Comment on above: Performed By: #### L AB17, [id number] ####Magazine Journalist: KEMAR ABEBE ([id number])[facility]ENTERWarren WADEMARYN (SBHLAB)[address] Calcium [Mass/Vol] 8.7 mg/dL Normal 8.4-10.2 [facility] Comment on above: Performed By: #### L AB17, [id number] ####Magazine Journalist: KEMAR ABEBE ([id number])[facility]ENTERWarren KASPERN (SBHLAB)[address] Chloride [Moles/Vol] 101 mmol/L Normal 98-107 [facility] Comment on above: Performed By: #### L AB17, [id number] ####Magazine Journalist: KEMAR ABEBE ([id number])[facility]ENTERWarren WADEMARYN (SBHLAB)[address] CO2 [Moles/Vol] 29 mmol/L Normal 22-29 [facility] Comment on above: Performed By: #### L AB17, [id number] ####Magazine Journalist: KEMAR ABEBE ([phone])[facility]ENTERWarren WADEMARYN (SBHLAB)[address] Creatinine [Mass/Vol] 0.84 mg/dL Normal [facility] Comment on above: Performed By: #### L AB17, [id number] ####Magazine Journalist: KEMAR ABEBE ([phone])[facility]ENTERA SHERIMARYN (SBHLAB)[address] GLOMERULAR FILTRATION RATE ML/MIN/1.73 SQ M.PREDICTED 81.2 mL/min/1.73m*2 Normal >60.0 [facility] Comment on above: Result Comment: Calc ulation based on the Chronic Kidney Disease Epidemiology Collaboration (CKD-EPI) equation refit without adjustment for race Performed By: #### L AB17, [id number] ####Magazine Journalist: KEMAR ABEBE ([id number])[facility]ENTERA [place] (SBHLAB)[address] Glucose [Mass/Vol] 214 mg/dL High 74-100 [facility] Comment on above: Performed By: #### L AB17, [id number] ####Magazine Journalist: KEMAR ABEBE ([id number])[facility]ENTERA BARBPRESBYTERIAN KASEMAN HOSPITALN (SBHLAB)[address] Potassium [Moles/Vol] 3.4 mmol/L Low 3.5-5.1 [facility] Comment on above: Result Comment: [facility] potassium values may be up to 0.5 mmol/L lower than serum values. Performed By: #### L AB17, [id number] ####Magazine Journalist: KEMAR ABEBE ([id number])[facility]ENTERA [place] (SBHLAB)[address] Protein [Mass/Vol] 6.1 g/dL Low 6.4-8.3 [facility] Comment on above: Performed By: #### L AB17, [id number] ####Magazine Journalist: KEMAR ABEBE ([phone])[facility]ENTERA BARBPRESBYTERIAN KASEMAN HOSPITALN (SBHLAB)[address] Sodium [Moles/Vol] 137 mmol/L Normal 136-145 [facility] Comment on above: Performed By: #### L AB17, [id number] ####Magazine Journalist: KEMAR ABEBE ([id number])[facility]ENTERA BARBPRESBYTERIAN KASEMAN HOSPITALN (SBHLAB)[address] Urea nitrogen [Mass/Vol] 21 mg/dL Normal 9-23 [facility] Comment on above: Performed By: #### L AB17, [id number] ####Magazine Journalist: KEMAR ABEBE ([id number])[facility]ENTERA [facility] (SBHLAB)[address] Comprehensive metabolic 1998 panelon 10-23-2024 Albumin [Mass/Vol] 2.6 g/dL Low 3.5 - 5.0 g/dL [facility] ALP [Catalytic activity/Vol] 115 U/L [facility] ALT [Catalytic activity/Vol] 27 U/L [facility] Anion gap [Moles/Vol] 7 mmol/L 3 - 13 mmol/L [facility] AST [Catalytic activity/Vol] 18 U/L NINF - 34 U/L [facility] Bilirubin [Mass/Vol] 0.3 mg/dL NINF - 1.2 mg/dL [facility] Calcium [Mass/Vol] 8.7 mg/dL 8.4 - 10. 2 mg/dL [facility] Chloride [Moles/Vol] 101 mmol/L 98 - 10 7 mmol/L [facility] CO2 [Moles/Vol] 29 mmol/L 22 - 29 mmol/L [facility] Creatinine [Mass/Vol] 0.84 mg/dL [facility] GFR/1.73 sq M.predicted (S/P/Bld) [Vol rate/Area] 81.2 mL/min - PINF [facility] Comment on above: Calculation based on the Chronic Kidney Disease Epidemiology Collaboration (CKD-EPI) equation refit without adjustment for race Glucose [Mass/Vol] 214 mg/dL High 74 - 100 mg/dL [facility] Interpretation and review of laboratory results Abnormal [facility] Potassium [Moles/Vol] 3.4 mmol/L Low 3.5 - 5.1 mmol/L [facility] Comment on above: Plasma potassium helen ues may be up to 0.5 mmol/L lower than serum values. Protein [Mass/Vol] 6.1 g/dL Low 6.4 - 8.3 g/dL [facility] Sodium [Moles/Vol] 137 mmol/L 136 - 145 mmol/L [facility] Urea nitrogen [Mass/Vol] 21 mg/dL 9 - 23 mg/dL [facility] - Chemistry and C hemistry - challengeon 10-23-2024 Glucose [Mass/Vol] 309 mg/dL High 70 - 100 mg/dL [facility] Glucose [Mass/Vol] 296 mg/dL High 70 - 100 mg/dL [facility] Glucose [Mass/Vol] 240 mg/dL High 70 - 100 mg/dL [facility] Magnesium [Mass/Vol] 1.9 mg/dL 1.6 - 2 .6 mg/dL [facility] MAGNESIUMon 10-23-2024 Magnesium [Mass/Vol] 1.9 mg/dL Normal 1.6-2.6 [facility] Comment on above: Result Comment: MARIE Askew COMMENTS:Higher values can be expected in females during menses. Performed By: #### L AB17, [id number] ####Magazine Journalist: KEMAR ABEBE ([id number])[facility]ENTERWarren [facility] (SBHLAB)[address] [place] [address] Magnesium [Mass/Vol]on 10-23 Interpretation and review of laboratory results Normal [facility] Higher values can be expected in females during menses. [facility] No Panel Informationon 10-23 Interpretation and review of laboratory results Abnormal [facility] Performed by: [facility], [address] [place] [id number] CLIA ID: [id number] [facility] Interpretation and review of laboratory results Abnormal [facility] Performed by: [facility], [address] [place] [id number] CLIA ID: [id number] [facility] Interpretation and review of laboratory results Abnormal [facility] Performed by: [facility], [address] [place] [id number] CLIA ID: [id number] [facility] Nursing Noteon 10-23-2024 Nursing Note Report called to Cassy kelley RN at [facility]. Normal [facility] Progress Noteon 10-23-2024 Progress Note Normal [facility] Progress Note Normal [facility] Progress Note Normal [facility] 30on 10-22-2024 30 Normal [facility] 30 Normal [facility] Bacteria identified Aer cx N om (Unsp spec)Ordered By: Timi Ryder on 10-22-2024 Gram Stain Result Few Polymorphonuclea r leukocytes per low power field [facility] Gram Stain Result No organisms seen [facility] CBC W Auto Differential pane l (Bld)on 10-22-2024 Basophils (Bld) [#/Vol] 0.1 10*3/uL 0.0 - 0.2 10*3/uL [facility] Basophils/100 WBC (Bld) 0.5 % 0.0 - 2.0 % [facility] Eosinophils (Bld) [#/Vol] 0.2 10*3/uL 0.0 - 0.5 10*3/uL [facility] Eosinophils/100 WBC (Bld) 1.7 % 0.0 - 6.0 % [facility] Erythrocyte distribution width (RBC) [Ratio] 13.5 % 11.5 - 15.0 % [facility] Hematocrit (Bld) [Volume fraction] 30 % Male: 40.0-52.0 ; Female: 35.0-47.0 [facility] Hemoglobin (Bld) [Mass/Vol] 9.7 g/dL Low 11.7 - 18.0 g/dL [facility] Immature granulocytes (Bld) [#/Vol] 0.1 10*3/uL High NINF - 0.1 10*3/uL [facility] Immature granulocytes/100 WBC (Bld) 1.1 % 0.0 - 2.0 % [facility] Interpretation and review of laboratory results Abnormal [facility] Lymphocytes (Bld) [#/Vol] 1.6 10*3/uL 1.0 - 4.3 10*3/uL [facility] Lymphocytes/100 WBC (Bld) 15.9 % 15.0 - 45.0 % [facility] MCH (RBC) [Entitic mass] 27.2 pg 26.0 - 34.0 pg [facility] MCHC (RBC) [Mass/Vol] 32.3 % 30.5 - 36.0 % [facility] MCV (RBC) [Entitic vol] 84.3 fL 77.0 - 99.0 fL [facility] Monocytes (Bld) [#/Vol] 0.8 10*3/uL 0.0 - 0.9 10*3/uL [facility] Monocytes/100 WBC (Bld) 8.2 % 5.0 - 13.0 % [facility] Neutrophils (Bld) [#/Vol] 7.1 10*3/uL 1.8 - 7.5 10*3/uL [facility] Neutrophils/100 WBC (Bld) 72.6 % 38.0 - 82.0 % [facility] Nucleated RBC/100 WBC (Bld) [Ratio] 0 % [facility] Platelet mean volume (Bld) [Entitic vol] 9.5 fL 9.0 - 12.7 fL [facility] Platelets (Bld) [#/Vol] 419 10*3/uL 140 - 440 10*3/uL [facility] RBC (Bld) [#/Vol] 3.56 10*6/uL Male: 4.40-5.90; Female: 3.80-5.20 [facility] WBC (Bld) [#/Vol] 9.7 10*3/uL 3.6 - 10.7 10*3/uL [facility] CBC WITH AUTO DIFFERENTIALon 10-22-2024 Basophils (Bld) [#/Vol] 0.1 10*3/uL Normal 0.0-0.2 [facility] Comment on above: Performed By: #### L [id number] ####Magazine Journalist: KEMAR ABEBE ([id number])[facility] (SBAB)[address] [place] [address] Basophils/100 WBC (Bld) 0.5 % Normal 0.0-2.0 [facility] Comment on above: Performed By: #### L [id number] ####Magazine Journalist: KEMAR ABEBE ([id number])[facility] (SBAB)[address] [place] [address] Eosinophils (Bld) [#/Vol] 0.2 10*3/uL Normal 0.0-0.5 [facility] Comment on above: Performed By: #### L [id number] ####Magazine Journalist: KEMAR ABEBE ([phone])[facility] [place] (SBHLAB)[address] [place] [address] Eosinophils/100 WBC (Bld) 1.7 % Normal 0.0-6.0 [facility] Comment on above: Performed By: #### L [id number] ####Magazine Journalist: KEMAR ABEBE ([id number])[facility] (SBHLAB)[address] [place] [address] Erythrocyte distribution width (RBC) [Ratio] 13.5 % Normal 11.5-15.0 [facility] Comment on above: Performed By: #### L [id number] ####Magazine Journalist: KEMAR LUDWIGSAAD ([id number])[facility] [place] (SBHLAB)[address] Hematocrit (Bld) [Volume fraction] 30.0 % Normal Male: 40.0-52.0 ; Female: 35.0-47.0 [facility] Comment on above: Performed By: #### L [id number] ####Magazine Journalist: KEMAR MOMINHARRISON ([id number])[facility] [place] (SBHLAB)[address] [place] [address] Hemoglobin (Bld) [Mass/Vol] 9.7 g/dL Low 11.7-18.0 [facility] Comment on above: Performed By: #### L [id number] ####Magazine Journalist: KEMAR LUDWIGSAAD ([phone])[facility] [place] (SBHLAB)[address] IMMATURE GRANS % 1.1 % Normal 0.0-2.0 [facility] Comment on above: Performed By: #### L [id number] ####Magazine Journalist: KEMAR MOMINHARRISON ([phone])[facility] [place] (SBHLAB)[address] [place] [address] IMMATURE GRANS ABSOLUTE 0.1 10*3/uL High <0.1 [facility] Comment on above: Performed By: #### L [id number] ####Magazine Journalist: KEMAR LUDWIGSAAD ([phone])[facility] [place] (SBHLAB)[address] [place] [address] Lymphocytes (Bld) [#/Vol] 1.6 10*3/uL Normal 1.0-4.3 [facility] Comment on above: Performed By: #### L [id number] ####Magazine Journalist: KEMAR ABEBE ([phone])[facility] [place] (SBHLAB)[address] Lymphocytes/100 WBC (Bld) 15.9 % Normal 15.0-45.0 [facility] Comment on above: Performed By: #### L [id number] ####Magazine Journalist: KEMAR ABEBE ([id number])[facility] [place] (SBHLAB)[address] MCH (RBC) [Entitic mass] 27.2 pg Normal 26.0-34.0 [facility] Comment on above: Performed By: #### L [id number] ####Magazine Journalist: KEMAR ABEBE ([phone])[facility] [place] (SBHLAB)[address] MCHC 32.3 % Normal 30.5-36.0 [facility] Comment on above: Performed By: #### L [id number] ####Magazine Journalist: KEMAR ABEBE ([id number])[facility] [place] (SBHLAB)[address] [place] [address] MCV (RBC) [Entitic vol] 84.3 fL Normal 77.0-99.0 [facility] Comment on above: Performed By: #### L [id number] ####Magazine Journalist: KEMAR ABEBE ([id number])[facility] [place] (SBHLAB)[address] [place] [address] Monocytes (Bld) [#/Vol] 0.8 10*3/uL Normal 0.0-0.9 [facility] Comment on above: Performed By: #### L [id number] ####Magazine Journalist: KEMAR ABEBE ([id number])[facility] [place] (SBHLAB)[address] [place] [address] [place] Monocytes/100 WBC (Bld) 8.2 % Normal 5.0-13.0 [facility] Comment on above: Performed By: #### L [id number] ####Magazine Journalist: KEMAR ABEBE ([id number])[facility] [place] (SBHLAB)[address] [place] [address] NEUTROPHILS ABSOLUTE 7.1 10*3/uL Normal 1.8-7.5 [facility] Comment on above: Performed By: #### L [id number] ####Magazine Journalist: KEMAR ABEBE ([id number])[facility] [place] (SBHLAB)[address] Neutrophils/100 WBC (Bld) 72.6 % Normal 38.0-82.0 [facility] Comment on above: Performed By: #### L [id number] ####Magazine Journalist: KEMAR ABEBE ([id number])[facility] [place] (SBHLAB)[address] NRBC 0.0 /100 WBCs Normal 0.0-2.0 [facility] Comment on above: Performed By: #### L [id number] ####Magazine Journalist: KEMAR ABEBE ([phone])[facility] [place] (SBHLAB)[address] Platelet mean volume (Bld) [Entitic vol] 9.5 fL Normal 9.0-12.7 [facility] Comment on above: Performed By: #### L [id number] ####Magazine Journalist: KEMAR ABEBE ([id number])[facility] [place] (SBHLAB)[address] Platelets (Bld) [#/Vol] 419 10*3/uL Normal 140-440 [facility] Comment on above: Performed By: #### L [id number] ####Magazine Journalist: KEMAR ABEBE ([id number])[facility] [place] (SBHLAB)[address] RBC (Bld) [#/Vol] 3.56 10*6/uL Normal Male: 4.40-5.90; Female: 3.80-5.20 [facility] Comment on above: Performed By: #### L [id number] ####Magazine Journalist: KEMAR ABEBE ([phone])[facility] [place] (SBHLAB)[address] [place] [address] [place] WBC (Bld) [#/Vol] 9.7 10*3/uL Normal 3.6-10.7 [facility] Comment on above: Performed By: #### L [id number] ####Magazine Journalist: KEMAR ABEBE ([id number])[facility] [place] (SBHLAB)[address] COMPREHENSIVE METABOLIC PANE Gigi 10-22-2024 Albumin [Mass/Vol] 2.7 g/dL Low 3.5-5.0 [facility] Comment on above: Performed By: #### L AB17, [id number] ####Magazine Journalist: KEMAR ABEBE ([phone])[facility] [place] (SB[facility])[address] ALP [Catalytic activity/Vol] 127 U/L Normal [facility] Comment on above: Performed By: #### L AB17, [id number] ####Magazine Journalist: KEMAR ABEBE ([id number])[facility] [place] (SBHLAB)[address] ALT [Catalytic activity/Vol] 32 U/L Normal [facility] Comment on above: Performed By: #### L [id number], [id number] ####Magazine Journalist: KEMAR ABEBE ([id number])[facility] [place] (SBHLAB)[address] Anion gap [Moles/Vol] 11 mmol/L Normal 3-13 [facility] Comment on above: Performed By: #### L [id number], [id number] ####Magazine Journalist: KEMAR ABEBE ([id number])[facility] [place] (SBHLAB)[address] AST [Catalytic activity/Vol] 19 U/L Normal <34 [facility] Comment on above: Performed By: #### L [id number], [id number] ####Magazine Journalist: KEMAR ABEBE ([id number])[facility] [place] (SBHLAB)[address] Bilirubin [Mass/Vol] 0.3 mg/dL Normal <1.2 [facility] Comment on above: Performed By: #### L AB17, [id number] ####Magazine Journalist: KEMAR ABEBE ([id number])[facility] [place] (SBHLAB)[address] Calcium [Mass/Vol] 8.7 mg/dL Normal 8.4-10.2 [facility] Comment on above: Performed By: #### L AB17, [id number] ####Magazine Journalist: KEMAR ABEBE ([id number])[facility] [place] (SBHLAB)[address] Chloride [Moles/Vol] 104 mmol/L Normal 98-107 [facility] Comment on above: Performed By: #### L AB17, [id number] ####Magazine Journalist: KEMAR ABEBE ([phone])[facility] [place] (SBHLAB)[address] CO2 [Moles/Vol] 24 mmol/L Normal 22-29 [facility] Comment on above: Performed By: #### L AB17, [id number] ####Magazine Journalist: KEMAR ABEBE ([id number])[facility] (SBHLAB)[address] Creatinine [Mass/Vol] 1.05 mg/dL Normal [facility] Comment on above: Performed By: #### L AB17, [id number] ####Magazine Journalist: KEMAR ABEBE ([id number])[facility] [place] (SBHLAB)[address] GLOMERULAR FILTRATION RATE ML/MIN/1.73 SQ M.PREDICTED 62.1 mL/min/1.73m*2 Normal >60.0 [facility] Comment on above: Result Comment: Calc ulation based on the Chronic Kidney Disease Epidemiology Collaboration (CKD-EPI) equation refit without adjustment for race Performed By: #### L AB17, [id number] ####Magazine Journalist: KEMAR ABEBE ([id number])[facility] [place] (SBHLAB)[address] Glucose [Mass/Vol] 148 mg/dL High 74-100 [facility] Comment on above: Performed By: #### L AB17, [id number] ####Magazine Journalist: KEMAR ABEBE ([id number])[facility]ENTERWarren [place] (SBHLAB)[address] Potassium [Moles/Vol] 3.3 mmol/L Low 3.5-5.1 [facility] Comment on above: Result Comment: [facility] potassium values may be up to 0.5 mmol/L lower than serum values. Performed By: #### L AB17, [id number] ####Magazine Journalist: KEMAR ABEBE ([id number])[facility]ENTERWarren KASPERJermaine (SBHLAB)[address] Protein [Mass/Vol] 6.4 g/dL Normal 6.4-8.3 [facility] Comment on above: Performed By: #### L AB17, [id number] ####Magazine Journalist: KEMAR ABEBE ([id number])[facility]ENTERWarren KASPERJermaine (SBHLAB)[address] Sodium [Moles/Vol] 139 mmol/L Normal 136-145 [facility] Comment on above: Performed By: #### L AB17, [id number] ####Magazine Journalist: KMEAR ABEBE ([id number])[facility] HOSPITALJerm[facility] (SBHLAB)[address] Urea nitrogen [Mass/Vol] 35 mg/dL High 9-23 [facility] Comment on above: Performed By: #### L AB17, [id number] ####Magazine Journalist: KEMAR ABEBE ([id number])[facility] (SBHLAB)[address] Comprehensive metabolic 1998 panelon 10-22-2024 Albumin [Mass/Vol] 2.7 g/dL Low 3.5 - 5.0 g/dL [facility] ALP [Catalytic activity/Vol] 127 U/L [facility] ALT [Catalytic activity/Vol] 32 U/L [facility] Anion gap [Moles/Vol] 11 mmol/L 3 - 13 mmol/L [facility] AST [Catalytic activity/Vol] 19 U/L NINF - 34 U/L [facility] Bilirubin [Mass/Vol] 0.3 mg/dL NINF - 1.2 mg/dL [facility] Calcium [Mass/Vol] 8.7 mg/dL 8.4 - 10. 2 mg/dL [facility] Chloride [Moles/Vol] 104 mmol/L 98 - 10 7 mmol/L [facility] CO2 [Moles/Vol] 24 mmol/L 22 - 29 mmol/L [facility] Creatinine [Mass/Vol] 1.05 mg/dL [facility] GFR/1.73 sq M.predicted (S/P/Bld) [Vol rate/Area] 62.1 mL/min - PINF [facility] Comment on above: Calculation based on the Chronic Kidney Disease Epidemiology Collaboration (CKD-EPI) equation refit without adjustment for race Glucose [Mass/Vol] 148 mg/dL High 74 - 100 mg/dL [facility] Interpretation and review of laboratory results Abnormal [facility] Potassium [Moles/Vol] 3.3 mmol/L Low 3.5 - 5.1 mmol/L [facility] Comment on above: Plasma potassium helen ues may be up to 0.5 mmol/L lower than serum values. Protein [Mass/Vol] 6.4 g/dL 6.4 - 8.3 g/dL [facility] Sodium [Moles/Vol] 139 mmol/L 136 - 145 mmol/L [facility] Urea nitrogen [Mass/Vol] 35 mg/dL High 9 - 23 mg/dL [facility] - Chemistry and C hemistry - challengeon 10-22-2024 Glucose [Mass/Vol] 312 mg/dL High 70 - 100 mg/dL [facility] Glucose [Mass/Vol] 283 mg/dL High 70 - 100 mg/dL [facility] Glucose [Mass/Vol] 295 mg/dL High 70 - 100 mg/dL [facility] Glucose [Mass/Vol] 258 mg/dL High 70 - 100 mg/dL [facility] Glucose [Mass/Vol] 210 mg/dL High 70 - 100 mg/dL [facility] Magnesium [Mass/Vol] 2 mg/dL 1.6 - 2 .6 mg/dL [facility] Laboratory - Microbiology an d Antimicrobial susceptibilityOrdered By: Timi Ryder on 10-22-2024 Bacteria identified Aer cx Nom (Unsp spec) No growth at 72 hours [facility] MAGNESIUMon 10-22-2024 Magnesium [Mass/Vol] 2.0 mg/dL Normal 1.6-2.6 [facility] Comment on above: Result Comment: MARIE Askew COMMENTS:Higher values can be expected in females during menses. Performed By: #### L AB17, [id number] ####Magazine Journalist: KEMAR ABEBE ([id number])[facility] [place] (SBHLAB)[address] [place] [address] Magnesium [Mass/Vol]on 10-22 Interpretation and review of laboratory results Normal [facility] Higher values can be expected in females during menses. [facility] No Panel Informationon 10-22 Interpretation and review of laboratory results Abnormal [facility] Performed by: [facility], [address] [place] [address] CLIA ID: [id number] [facility] Interpretation and review of laboratory results Abnormal [facility] Performed by: [facility], [address] [place] [address] CLIA ID: [id number] [facility] Interpretation and review of laboratory results Abnormal [facility] Performed by: [facility], [address] [place] [address] CLIA ID: [id number] [facility] Interpretation and review of laboratory results Abnormal [facility] Performed by: [facility], [address] [place] [address] CLIA ID: [id number] [facility] Progress Noteon 10-22-2024 Progress Note Normal [facility] Progress Note Normal [facility] [id number] 10-21-2024 [id number] Normal [facility] CBC W Auto Differential pane l (Bld)on 10-21-2024 Basophils (Bld) [#/Vol] 0.1 10*3/uL 0.0 - 0.2 10*3/uL [facility] Basophils/100 WBC (Bld) 0.6 % 0.0 - 2.0 % [facility] Eosinophils (Bld) [#/Vol] 0.2 10*3/uL 0.0 - 0.5 10*3/uL [facility] Eosinophils/100 WBC (Bld) 1.6 % 0.0 - 6.0 % [facility] Erythrocyte distribution width (RBC) [Ratio] 13.4 % 11.5 - 15.0 % [facility] Hematocrit (Bld) [Volume fraction] 31.6 % Male: 40.0-52.0 ; Female: 35.0-47.0 [facility] Hemoglobin (Bld) [Mass/Vol] 10.2 g/dL Low 11.7 - 18.0 g/dL [facility] Immature granulocytes (Bld) [#/Vol] 0.1 10*3/uL High NINF - 0.1 10*3/uL [facility] Immature granulocytes/100 WBC (Bld) 0.8 % 0.0 - 2.0 % [facility] Interpretation and review of laboratory results Abnormal [facility] Lymphocytes (Bld) [#/Vol] 1.8 10*3/uL 1.0 - 4.3 10*3/uL [facility] Lymphocytes/100 WBC (Bld) 15.3 % 15.0 - 45.0 % [facility] MCH (RBC) [Entitic mass] 27.3 pg 26.0 - 34.0 pg [facility] MCHC (RBC) [Mass/Vol] 32.3 % 30.5 - 36.0 % [facility] MCV (RBC) [Entitic vol] 84.7 fL 77.0 - 99.0 fL [facility] Monocytes (Bld) [#/Vol] 0.8 10*3/uL 0.0 - 0.9 10*3/uL [facility] Monocytes/100 WBC (Bld) 6.8 % 5.0 - 13.0 % [facility] Neutrophils (Bld) [#/Vol] 8.9 10*3/uL High 1.8 - 7.5 10*3/uL [facility] Neutrophils/100 WBC (Bld) 74.9 % 38.0 - 82.0 % [facility] Nucleated RBC/100 WBC (Bld) [Ratio] 0 % [facility] Platelet mean volume (Bld) [Entitic vol] 9.7 fL 9.0 - 12.7 fL [facility] Platelets (Bld) [#/Vol] 396 10*3/uL 140 - 440 10*3/uL [facility] RBC (Bld) [#/Vol] 3.73 10*6/uL Male: 4.40-5.90; Female: 3.80-5.20 [facility] WBC (Bld) [#/Vol] 11.9 10*3/uL High 3.6 - 10.7 10*3/uL [facility] CBC WITH AUTO DIFFERENTIALon 10-21-2024 Basophils (Bld) [#/Vol] 0.1 10*3/uL Normal 0.0-0.2 [facility] Comment on above: Performed By: #### L [id number] ####Magazine Journalist: KEMAR ABEBE ([id number])[facility] (SBAB)[address] [place] [address] Basophils/100 WBC (Bld) 0.6 % Normal 0.0-2.0 [facility] Comment on above: Performed By: #### L [id number] ####Magazine Journalist: KEMAR ABEBE ([id number])[facility] (SBAB)[address] [place] [address] Eosinophils (Bld) [#/Vol] 0.2 10*3/uL Normal 0.0-0.5 [facility] Comment on above: Performed By: #### L [id number] ####Magazine Journalist: KEMAR ABEBE ([id number])[facility] (SBAB)[address] Eosinophils/100 WBC (Bld) 1.6 % Normal 0.0-6.0 [facility] Comment on above: Performed By: #### L [id number] ####Magazine Journalist: KEMAR ABEBE ([id number])[facility] (SBAB)[address] [place] [address] Erythrocyte distribution width (RBC) [Ratio] 13.4 % Normal 11.5-15.0 [facility] Comment on above: Performed By: #### L [id number] ####Magazine Journalist: KEMAR ANDRAE ([id number])[facility] [place] (SBHLAB)[address] [place] [address] Hematocrit (Bld) [Volume fraction] 31.6 % Normal Male: 40.0-52.0 ; Female: 35.0-47.0 [facility] Comment on above: Performed By: #### L [id number] ####Magazine Journalist: KEMAR MOMINHARRISON ([id number])[facility] [place] (SBHLAB)[address] [place] [address] Hemoglobin (Bld) [Mass/Vol] 10.2 g/dL Low 11.7-18.0 [facility] Comment on above: Performed By: #### L [id number] ####Magazine Journalist: KEMAR MOMINHARRISON ([id number])[facility]A [facility]BPRES[facility] ([facility] [place] [address] IMMATURE GRANS % 0.8 % Normal 0.0-2.0 [facility] Comment on above: Performed By: #### L [id number] ####Magazine Journalist: KEMAR LUDWIGSAAD ([id number])[facility]A [facility]BPRESBY[facility] ([facility])[address] [place] [address] IMMATURE GRANS ABSOLUTE 0.1 10*3/uL High <0.1 [facility] Comment on above: Performed By: #### L [id number] ####Magazine Journalist: KEMAR LUDWIGSAAD ([id number])[facility]A [facility] ([facility])[address] [place] [address] Lymphocytes (Bld) [#/Vol] 1.8 10*3/uL Normal 1.0-4.3 [facility] Comment on above: Performed By: #### L [id number] ####Magazine Journalist: KEMAR MOMINHiginioSAAD ([id number])[facility]A [facility]BPRES[facility] ([facility])[address] [place] [address] Lymphocytes/100 WBC (Bld) 15.3 % Normal 15.0-45.0 [facility] Comment on above: Performed By: #### L [id number] ####Magazine Journalist: KEMAR MOMINHiginioSAAD ([id number])[facility] CENTERWarren KASPERN (SBHLAB)[address] MCH (RBC) [Entitic mass] 27.3 pg Normal 26.0-34.0 [facility] Comment on above: Performed By: #### L [id number] ####Magazine Journalist: KEMAR ANDRAE ([phone])[facility] CENTERWarren WADEPRESBYTERIAN KAS[facility]ITALN (SBHLAB)[address] MCHC 32.3 % Normal 30.5-36.0 [facility] Comment on above: Performed By: #### L [id number] ####Magazine Journalist: KEMAR ANDRAE ([id number])[facility]ENTERWarren KASPERN (SBHLAB)[address] [place] [address] MCV (RBC) [Entitic vol] 84.7 fL Normal 77.0-99.0 [facility] Comment on above: Performed By: #### L [id number] ####Magazine Journalist: KEMAR LUDWIGSAAD ([id number])[facility] CENTERWarren WADEPRESBYTERIAN [facility]N (SBHLAB)[address] [place] [address] Monocytes (Bld) [#/Vol] 0.8 10*3/uL Normal 0.0-0.9 [facility] Comment on above: Performed By: #### L [id number] ####Magazine Journalist: KEMAR LUDWIGSAAD ([id number])[facility] CENTERWarren BARBPRESBYTER[facility]ITALN (SBHLAB)[address] [place] [address] Monocytes/100 WBC (Bld) 6.8 % Normal 5.0-13.0 [facility] Comment on above: Performed By: #### L [id number] ####Magazine Journalist: KEMAR LUDWIGSAAD ([id number])[facility] CENTERWarren BARBPRESBYTER[facility]ITALN (SBHLAB)[address] NEUTROPHILS ABSOLUTE 8.9 10*3/uL High 1.8-7.5 [facility] Comment on above: Performed By: #### L [id number] ####Magazine Journalist: KEMAR ABEBE ([phone])[facility] [place] (SBHLAB)[address] Neutrophils/100 WBC (Bld) 74.9 % Normal 38.0-82.0 [facility] Comment on above: Performed By: #### L [id number] ####Magazine Journalist: KEMAR ABEBE ([id number])[facility] [place] (SBHLAB)[address] NRBC 0.0 /100 WBCs Normal 0.0-2.0 [facility] Comment on above: Performed By: #### L [id number] ####Magazine Journalist: KEMAR ABEBE ([id number])[facility] [place] (SBHLAB)[address] Platelet mean volume (Bld) [Entitic vol] 9.7 fL Normal 9.0-12.7 [facility] Comment on above: Performed By: #### L [id number] ####Magazine Journalist: KEMAR ABEBE ([id number])[facility] [place] (SBHLAB)[address] [place] [address] [place] Platelets (Bld) [#/Vol] 396 10*3/uL Normal 140-440 [facility] Comment on above: Performed By: #### L [id number] ####Magazine Journalist: KEMAR ABEBE ([id number])[facility] [place] (SBHLAB)[address] [place] [address] [place] RBC (Bld) [#/Vol] 3.73 10*6/uL Normal Male: 4.40-5.90; Female: 3.80-5.20 [facility] Comment on above: Performed By: #### L [id number] ####Magazine Journalist: KEMAR ABEBE ([id number])[facility] [place] (SBHLAB)[address] [place] [address] [place] WBC (Bld) [#/Vol] 11.9 10*3/uL High 3.6-10.7 [facility] Comment on above: Performed By: #### L [id number] ####Magazine Journalist: KEMAR ABEBE ([id number])[place] (SBHLAB)[address] COMPREHENSIVE METABOLIC PANE Gigi 10-21-2024 Albumin [Mass/Vol] 2.7 g/dL Low 3.5-5.0 [facility] Comment on above: Performed By: #### L AB17, [id number] ####Magazine Journalist: KEMAR ABEBE ([id number])[facility] [place] (SBHLAB)[address] ALP [Catalytic activity/Vol] 135 U/L Normal [facility] Comment on above: Performed By: #### L AB17, [id number] ####Magazine Journalist: KEMAR ABEBE ([id number])[facility]A [place] (SBHLAB)[address] ALT [Catalytic activity/Vol] 42 U/L Normal [facility] Comment on above: Performed By: #### L AB17, [id number] ####Magazine Journalist: KEMAR ABEBE ([id number])[facility] [place] (SBHLAB)[address] Anion gap [Moles/Vol] 12 mmol/L Normal 3-13 [facility] Comment on above: Performed By: #### L AB17, [id number] ####Magazine Journalist: KEMAR ABEBE ([id number])[facility] [place] (SBHLAB)[address] AST [Catalytic activity/Vol] 20 U/L Normal <34 [facility] Comment on above: Performed By: #### L AB17, [id number] ####Magazine Journalist: KEMAR ABEBE ([id number])[facility]A [place] (SBHLAB)[address] Bilirubin [Mass/Vol] 0.3 mg/dL Normal <1.2 [facility] Comment on above: Performed By: #### L AB17, [id number] ####Magazine Journalist: KEMAR ABEBE ([id number])[place] (SBHLAB)[address] Calcium [Mass/Vol] 8.8 mg/dL Normal 8.4-10.2 [facility] Comment on above: Performed By: #### L AB17, [id number] ####Magazine Journalist: KEMAR ABEBE ([id number])[facility] CENTERWarren [place] (SBHLAB)[address] Chloride [Moles/Vol] 100 mmol/L Normal 98-107 [facility] Comment on above: Performed By: #### L AB17, [id number] ####Magazine Journalist: KEMAR ABEBE ([id number])[facility] CENTERWarren [place]ADEKAT[place] (SBHLAB)[address] CO2 [Moles/Vol] 23 mmol/L Normal 22-29 [facility] Comment on above: Performed By: #### L AB17, [id number] ####Magazine Journalist: KEMAR ABEBE ([id number])[facility] CENTERWarren [place]KAT[place] (SBHLAB)[address] Creatinine [Mass/Vol] 1.35 mg/dL Normal [facility] Comment on above: Performed By: #### L AB17, [id number] ####Magazine Journalist: KEMAR ABEBE ([id number])[facility] CENTERWarren WADEMARYN (SBHLAB)[address] [place] [address] [place] GLOMERULAR FILTRATION RATE ML/MIN/1.73 SQ M.PREDICTED 45.9 mL/min/1.73m*2 Low >60.0 [facility] Comment on above: Result Comment: Calc ulation based on the Chronic Kidney Disease Epidemiology Collaboration (CKD-EPI) equation refit without adjustment for race Performed By: #### L AB17, [id number] ####Magazine Journalist: KEMAR ABEBE ([phone])[facility] CENTERWarren SHERIMARYN (SBHLAB)[address] [place] [address] [place] Glucose [Mass/Vol] 112 mg/dL High 74-100 [facility] Comment on above: Performed By: #### L AB17, [id number] ####Magazine Journalist: KEMAR ABEBE ([id number])[facility] CENTERWarren WADEPRESBYTER[facility] (SBHLAB)[address] Potassium [Moles/Vol] 3.3 mmol/L Low 3.5-5.1 [facility] Comment on above: Result Comment: [facility] potassium values may be up to 0.5 mmol/L lower than serum values. Performed By: #### L AB17, [id number] ####Magazine Journalist: KEMAR ABEBE ([id number])[facility]ENTERA [facility] (SBHLAB)[address] Protein [Mass/Vol] 6.6 g/dL Normal 6.4-8.3 [facility] Comment on above: Performed By: #### L AB17, [id number] ####Magazine Journalist: KEMAR ABEBE ([id number])[facility] CENTERWarren [facility] (SBHLAB)[address] Sodium [Moles/Vol] 135 mmol/L Low 136-145 [facility] Comment on above: Performed By: #### L AB17, [id number] ####Magazine Journalist: KEMAR ABEBE ([id number])[facility] (SBHLAB)[address] Urea nitrogen [Mass/Vol] 48 mg/dL High 9-23 [facility] Comment on above: Performed By: #### L AB17, [id number] ####Magazine Journalist: KEMAR ABEBE ([id number])[facility] (SBHLAB)[address] Comprehensive metabolic 1998 panelon 10-21-2024 Albumin [Mass/Vol] 2.7 g/dL Low 3.5 - 5.0 g/dL [facility] ALP [Catalytic activity/Vol] 135 U/L [facility] ALT [Catalytic activity/Vol] 42 U/L [facility] Anion gap [Moles/Vol] 12 mmol/L 3 - 13 mmol/L [facility] AST [Catalytic activity/Vol] 20 U/L NINF - 34 U/L [facility] Bilirubin [Mass/Vol] 0.3 mg/dL NINF - 1.2 mg/dL [facility] Calcium [Mass/Vol] 8.8 mg/dL 8.4 - 10. 2 mg/dL [facility] Chloride [Moles/Vol] 100 mmol/L 98 - 10 7 mmol/L [facility] CO2 [Moles/Vol] 23 mmol/L 22 - 29 mmol/L [facility] Creatinine [Mass/Vol] 1.35 mg/dL [facility] GFR/1.73 sq M.predicted (S/P/Bld) [Vol rate/Area] 45.9 mL/min Low - PINF [facility] Comment on above: Calculation based on the Chronic Kidney Disease Epidemiology Collaboration (CKD-EPI) equation refit without adjustment for race Glucose [Mass/Vol] 112 mg/dL High 74 - 100 mg/dL [facility] Interpretation and review of laboratory results Abnormal [facility] Potassium [Moles/Vol] 3.3 mmol/L Low 3.5 - 5.1 mmol/L [facility] Comment on above: Plasma potassium helen ues may be up to 0.5 mmol/L lower than serum values. Protein [Mass/Vol] 6.6 g/dL 6.4 - 8.3 g/dL [facility] Sodium [Moles/Vol] 135 mmol/L Low 136 - 145 mmol/L [facility] Urea nitrogen [Mass/Vol] 48 mg/dL High 9 - 23 mg/dL [facility] - Chemistry and C hemistry - challengeon 10-21-2024 Glucose [Mass/Vol] 151 mg/dL High 70 - 100 mg/dL [facility] Glucose [Mass/Vol] 141 mg/dL High 70 - 100 mg/dL [facility] Glucose [Mass/Vol] 161 mg/dL High 70 - 100 mg/dL [facility] Glucose [Mass/Vol] 182 mg/dL High 70 - 100 mg/dL [facility] Glucose [Mass/Vol] 185 mg/dL High 70 - 100 mg/dL [facility] Magnesium [Mass/Vol] 2 mg/dL 1.6 - 2 .6 mg/dL [facility] MAGNESIUMon 10-21-2024 Magnesium [Mass/Vol] 2.0 mg/dL Normal 1.6-2.6 [facility] Comment on above: Result Comment: ORDE R COMMENTS:Higher values can be expected in females during menses. Performed By: #### L AB17, [id number] ####Magazine Journalist: KEMAR ABEBE ([id number])[facility]ENTERWarren [place] (SBHLAB)[address] [place] [address] Magnesium [Mass/Vol]on 10-21 Interpretation and review of laboratory results Normal [facility] Higher values can be expected in females during menses. [facility] No Panel Informationon 10-21 Interpretation and review of laboratory results Abnormal [facility], [address] [place] [id number] CLIA ID: [id number] [facility] Interpretation and review of laboratory results Abnormal [facility] Performed by: [facility], [address] [place] [address] CLIA ID: [id number] [facility] Interpretation and review of laboratory results Abnormal [facility] Performed by: [facility], [address] [place] [address] CLIA ID: [id number] [facility] Interpretation and review of laboratory results Abnormal [facility] Performed by: [facility], [address] [place] [address] CLIA ID: [id number] [facility] Interpretation and review of laboratory results Abnormal [facility] Performed by: [facility], [address] [place] [address] CLIA ID: [id number] [facility] Progress Noteon 10-21-2024 Progress Note Normal [facility] Progress Note Normal [facility] [id number] 10-20-2024 [id number] Normal [facility] [id number] Sent updated notes t o return back to [facility] via [employer] per TCC request. Await review and response regarding ability to accept. TCC notified. Normal [facility] Bacteria identified Cx Nom ( U)Ordered By: Sagrario Clark on 10-20-2024 Interpretation and review of laboratory results Normal [facility] C-REACTIVE PROTEINon 024 CRP [Mass/Vol] 261.6 mg/L High <5.0 [facility] Comment on above: Performed By: #### L [id number], LAB17, [id number] ####Magazine Journalist: KEMAR ABEBE ([phone])[facility] (SBHLAB)[address] [place] [address] CBC W Auto Differential pane l (Bld)on 10-20-2024 Basophils (Bld) [#/Vol] 0 10*3/uL 0.0 - 0.2 10*3/uL [facility] Basophils/100 WBC (Bld) 0.1 % 0.0 - 2.0 % [facility] Eosinophils (Bld) [#/Vol] 0 10*3/uL 0.0 - 0.5 10*3/uL [facility] Eosinophils/100 WBC (Bld) 0.2 % 0.0 - 6.0 % [facility] Erythrocyte distribution width (RBC) [Ratio] 13.9 % 11.5 - 15.0 % [facility] Hematocrit (Bld) [Volume fraction] 33 % Male: 40.0-52.0 ; Female: 35.0-47.0 [facility] Hemoglobin (Bld) [Mass/Vol] 10.5 g/dL Low 11.7 - 18.0 g/dL [facility] Immature granulocytes (Bld) [#/Vol] 0.2 10*3/uL High NINF - 0.1 10*3/uL [facility] Immature granulocytes/100 WBC (Bld) 1.3 % 0.0 - 2.0 % [facility] Interpretation and review of laboratory results Abnormal [facility] Lymphocytes (Bld) [#/Vol] 1.1 10*3/uL 1.0 - 4.3 10*3/uL [facility] Lymphocytes/100 WBC (Bld) 8 % Low 15.0 - 45.0 % [facility] MCH (RBC) [Entitic mass] 27.3 pg 26.0 - 34.0 pg [facility] MCHC (RBC) [Mass/Vol] 31.8 % 30.5 - 36.0 % [facility] MCV (RBC) [Entitic vol] 85.7 fL 77.0 - 99.0 fL [facility] Monocytes (Bld) [#/Vol] 0.8 10*3/uL 0.0 - 0.9 10*3/uL [facility] Monocytes/100 WBC (Bld) 5.7 % 5.0 - 13.0 % [facility] Neutrophils (Bld) [#/Vol] 11.4 10*3/uL High 1.8 - 7.5 10*3/uL [facility] Neutrophils/100 WBC (Bld) 84.7 % High 38.0 - 82.0 % [facility] Nucleated RBC/100 WBC (Bld) [Ratio] 0 % [facility] Platelet mean volume (Bld) [Entitic vol] 9.9 fL 9.0 - 12.7 fL [facility] Platelets (Bld) [#/Vol] 353 10*3/uL 140 - 440 10*3/uL [facility] RBC (Bld) [#/Vol] 3.85 10*6/uL Male: 4.40-5.90; Female: 3.80-5.20 [facility] WBC (Bld) [#/Vol] 13.4 10*3/uL High 3.6 - 10.7 10*3/uL [facility] CBC WITH AUTO DIFFERENTIALon 10-20-2024 Basophils (Bld) [#/Vol] 0.0 10*3/uL Normal 0.0-0.2 [facility] Comment on above: Performed By: #### L [id number] ####Magazine Journalist: KEMAR ABEBE ([id number])[facility] (SBHLAB)[address] Basophils/100 WBC (Bld) 0.1 % Normal 0.0-2.0 [facility] Comment on above: Performed By: #### L [id number] ####Magazine Journalist: KEMAR ABEBE ([phone])[facility] (SBHLAB)[address] Eosinophils (Bld) [#/Vol] 0.0 10*3/uL Normal 0.0-0.5 [facility] Comment on above: Performed By: #### L [id number] ####Magazine Journalist: KEMAR ABEBE ([phone])[facility] ([facility])[address] [place] [address] Eosinophils/100 WBC (Bld) 0.2 % Normal 0.0-6.0 [facility] Comment on above: Performed By: #### L [id number] ####Magazine Journalist: KEMAR LUDWIGSAAD ([id number])[facility] ([facility])[address] [place] [address] Erythrocyte distribution width (RBC) [Ratio] 13.9 % Normal 11.5-15.0 [facility] Comment on above: Performed By: #### L [id number] ####Magazine Journalist: KEMAR LUDWIGSADA ([id number])[facility] ([facility])[address] [place] [address] Hematocrit (Bld) [Volume fraction] 33.0 % Normal Male: 40.0-52.0 ; Female: 35.0-47.0 [facility] Comment on above: Performed By: #### L [id number] ####Magazine Journalist: KEMAR LUDWIGSAAD ([phone])[facility] ([facility])[address] [place] [address] Hemoglobin (Bld) [Mass/Vol] 10.5 g/dL Low 11.7-18.0 [facility] Comment on above: Performed By: #### L [id number] ####Magazine Journalist: KEMAR LUDWIGSAAD ([phone])[facility] ([facility])[address] [place] [address] IMMATURE GRANS % 1.3 % Normal 0.0-2.0 [facility] Comment on above: Performed By: #### L [id number] ####Magazine Journalist: KEMAR ABEBE ([id number])[facility] ([facility])[address] [place] [address] IMMATURE GRANS ABSOLUTE 0.2 10*3/uL High <0.1 [facility] Comment on above: Performed By: #### L [id number] ####Magazine Journalist: KEMAR ABEBE ([id number])[facility] (SBHLAB)[address] Lymphocytes (Bld) [#/Vol] 1.1 10*3/uL Normal 1.0-4.3 [facility] Comment on above: Performed By: #### L [id number] ####Magazine Journalist: KEMAR ABEBE ([id number])[facility] (SBHLAB)[address] Lymphocytes/100 WBC (Bld) 8.0 % Low 15.0-45.0 [facility] Comment on above: Performed By: #### L [id number] ####Magazine Journalist: KEMAR ABEBE ([id number])[facility] (SBHLAB)[address] MCH (RBC) [Entitic mass] 27.3 pg Normal 26.0-34.0 [facility] Comment on above: Performed By: #### L [id number] ####Magazine Journalist: KEMAR ABEBE ([id number])[facility]ENTERWarren [facility] (SBHLAB)[address] MCHC 31.8 % Normal 30.5-36.0 [facility] Comment on above: Performed By: #### L [id number] ####Magazine Journalist: KEMAR ABEBE ([id number])[facility] [place] (SBHLAB)[address] MCV (RBC) [Entitic vol] 85.7 fL Normal 77.0-99.0 [facility] Comment on above: Performed By: #### L [id number] ####Magazine Journalist: KEMAR ABEBE ([id number])[facility] (SBHLAB)[address] Monocytes (Bld) [#/Vol] 0.8 10*3/uL Normal 0.0-0.9 [facility] Comment on above: Performed By: #### L [id number] ####Magazine Journalist: KEMAR ABEBE ([id number])[facility] [place] (SBHLAB)[address] Monocytes/100 WBC (Bld) 5.7 % Normal 5.0-13.0 [facility] Comment on above: Performed By: #### L [id number] ####Magazine Journalist: KEMAR ABEBE ([id number])[facility] [place] (SBHLAB)[address] NEUTROPHILS ABSOLUTE 11.4 10*3/uL High 1.8-7.5 [facility] Comment on above: Performed By: #### L [id number] ####Magazine Journalist: KEMAR ABEBE ([id number])[facility] [place] (SBHLAB)[address] Neutrophils/100 WBC (Bld) 84.7 % High 38.0-82.0 [facility] Comment on above: Performed By: #### L [id number] ####Magazine Journalist: KEMAR ABEBE ([id number])[facility] [place] (SBHLAB)[address] NRBC 0.0 /100 WBCs Normal 0.0-2.0 [facility] Comment on above: Performed By: #### L [id number] ####Magazine Journalist: KEMAR ABEBE ([id number])[facility] [place] (SBHLAB)[address] Platelet mean volume (Bld) [Entitic vol] 9.9 fL Normal 9.0-12.7 [facility] Comment on above: Performed By: #### L [id number] ####Magazine Journalist: KEMAR ABEBE ([id number])[facility] [place] (SBHLAB)[address] [place] [address] [place] Platelets (Bld) [#/Vol] 353 10*3/uL Normal 140-440 [facility] Comment on above: Performed By: #### L [id number] ####Magazine Journalist: KEMAR ABEBE ([id number])[facility] (SBHLAB)[address] RBC (Bld) [#/Vol] 3.85 10*6/uL Normal Male: 4.40-5.90; Female: 3.80-5.20 [facility] Comment on above: Performed By: #### L [id number] ####Magazine Journalist: KEMAR ABEBE ([id number])[facility]ENTERWarren WADEMARYN (SBHLAB)[address] WBC (Bld) [#/Vol] 13.4 10*3/uL High 3.6-10.7 [facility] Comment on above: Performed By: #### L [id number] ####Magazine Journalist: KEMAR ABEBE ([id number])[facility]ENTERWarren WADEMARYN (SBHLAB)[address] COMPREHENSIVE METABOLIC PANE Gigi 10-20-2024 Albumin [Mass/Vol] 2.8 g/dL Low 3.5-5.0 [facility] Comment on above: Performed By: #### L [id number], LAB17, [id number] ####Magazine Journalist: KEMAR ABEBE ([id number])[facility]ENTERWarren WADEMARYN (SBHLAB)[address] ALP [Catalytic activity/Vol] 155 U/L Normal [facility] Comment on above: Performed By: #### L [id number], LAB17, VZF925 ####Magazine Journalist: KEMAR ABEBE ([id number])[facility] [place] (SBHLAB)[address] ALT [Catalytic activity/Vol] 53 U/L Normal [facility] Comment on above: Performed By: #### L [id number], LAB17, UES080 ####Magazine Journalist: KEMAR ABEBE ([id number])[facility] [place] (SBHLAB)[address] Anion gap [Moles/Vol] 14 mmol/L High 3-13 [facility] Comment on above: Performed By: #### L [id number], LAB17, QNO714 ####Magazine Journalist: KEMAR ABEBE ([id number])[facility] [place] (SBHLAB)[address] AST [Catalytic activity/Vol] 20 U/L Normal <34 [facility] Comment on above: Performed By: #### L [id number], LAB17, OEL713 ####Magazine Journalist: KEMAR ABEBE ([id number])[facility] [place] (SBHLAB)[address] Bilirubin [Mass/Vol] 0.5 mg/dL Normal <1.2 [facility] Comment on above: Performed By: #### Elijah RODRIGUEZ, LAB17, KED674 ####Magazine Journalist: KEMAR ABEBE ([id number])[facility] [place] (SBHLAB)[address] Calcium [Mass/Vol] 9.0 mg/dL Normal 8.4-10.2 [facility] Comment on above: Performed By: #### Elijah [id number], LAB17, FVR849 ####Magazine Journalist: KEMAR ABEBE ([id number])[facility] [place] (SBHLAB)[address] Chloride [Moles/Vol] 98 mmol/L Normal 98-107 [facility] Comment on above: Performed By: #### L [id number], LAB17, XGP108 ####Magazine Journalist: KEMAR ABEBE ([id number])[facility] [place] (SBHLAB)[address] [place] [address] [place] CO2 [Moles/Vol] 21 mmol/L Low 22-29 [facility] Comment on above: Performed By: #### L [id number], LAB17, XFJ822 ####Magazine Journalist: KEMAR ABEBE ([id number])[facility] [place] (SBHLAB)[address] Creatinine [Mass/Vol] 1.50 mg/dL Normal [facility] Comment on above: Performed By: #### Elijah [id number], LAB17, LIJ055 ####Magazine Journalist: KEMAR ABEBE ([id number])[facility] (SBHLAB)[address] GLOMERULAR FILTRATION RATE ML/MIN/1.73 SQ M.PREDICTED 40.5 mL/min/1.73m*2 Low >60.0 [facility] Comment on above: Result Comment: Calc ulation based on the Chronic Kidney Disease Epidemiology Collaboration (CKD-EPI) equation refit without adjustment for race Performed By: #### Elijah RODRIGUEZ, LAB17, WCQ887 ####Magazine Journalist: KEMAR ABEBE ([id number])[facility]ENTERWarren [place] (SBHLAB)[address] Glucose [Mass/Vol] 461 mg/dL Critically high 74-100 [facility] Comment on above: Performed By: #### Elijah [address], LAB17, AAF162 ####Magazine Journalist: KEMAR ABEBE ([id number])[facility] (SBHLAB)[address] Potassium [Moles/Vol] 3.6 mmol/L Normal 3.5-5.1 [facility] Comment on above: Result Comment: [facility] potassium values may be up to 0.5 mmol/L lower than serum values. Performed By: #### Elijah [id number], LAB17, NVA205 ####Magazine Journalist: KEMAR ABEBE ([id number])[facility] (SBHLAB)[address] [place] [address] [place] Protein [Mass/Vol] 6.8 g/dL Normal 6.4-8.3 [facility] Comment on above: Performed By: #### Elijah [id number], LAB17, ULZ222 ####Magazine Journalist: KEMAR ABEBE ([id number])[facility]ENTERWarren [place] (SBHLAB)[address] Sodium [Moles/Vol] 133 mmol/L Low 136-145 [facility] Comment on above: Performed By: #### L [id number], LAB17, RYL863 ####Magazine Journalist: KEMAR BANUELOSCER ([id number])[facility]ENTERWarren [facility] (SBHLAB)[address] Urea nitrogen [Mass/Vol] 48 mg/dL High 9-23 [facility] Comment on above: Performed By: #### L [id number], LAB17, DFY832 ####Magazine Journalist: KEMAR MOMINHARRISON ([id number])[facility] (SBHLAB)[address] CRP [Mass/Vol]on 10-20-2024 Interpretation and review of laboratory results Abnormal [facility] Comprehensive metabolic 1998 panelon 10-20-2024 Albumin [Mass/Vol] 2.8 g/dL Low 3.5 - 5.0 g/dL [facility] ALP [Catalytic activity/Vol] 155 U/L [facility] ALT [Catalytic activity/Vol] 53 U/L [facility] Anion gap [Moles/Vol] 14 mmol/L High 3 - 13 mmol/L [facility] AST [Catalytic activity/Vol] 20 U/L NINF - 34 U/L [facility] Bilirubin [Mass/Vol] 0.5 mg/dL [facility] mg/dL [facility] Calcium [Mass/Vol] 9 mg/dL 8.4 - 10. 2 mg/dL [facility] Chloride [Moles/Vol] 98 mmol/L 98 - 10 7 mmol/L [facility] CO2 [Moles/Vol] 21 mmol/L Low 22 - 29 mmol/L [facility] Creatinine [Mass/Vol] 1.5 mg/dL [facility] GFR/1.73 sq M.predicted (S/P/Bld) [Vol rate/Area] 40.5 mL/min Low - PINF [facility] Comment on above: Calculation based on the Chronic Kidney Disease Epidemiology Collaboration (CKD-EPI) equation refit without adjustment for race Glucose [Mass/Vol] 461 mg/dL Critically high 74 - 1 00 mg/dL [facility] Interpretation and review of laboratory results Abnormal [facility] Potassium [Moles/Vol] 3.6 mmol/L 3.5 - 5.1 mmol/L [facility] Comment on above: Plasma potassium helen ues may be up to 0.5 mmol/L lower than serum values. Protein [Mass/Vol] 6.8 g/dL 6.4 - 8.3 g/dL [facility] Sodium [Moles/Vol] 133 mmol/L Low 136 - 145 mmol/L [facility] Urea nitrogen [Mass/Vol] 48 mg/dL High 9 - 23 mg/dL [facility] Consulton 10-20-2024 Consult Normal [facility] IRON AND TIBCon 10-20-2024 IRON BINDING CAPACITY 187 ug/dL Low 250-450 [facility] Comment on above: Performed By: #### L [id number] ####Magazine Journalist: KEMAR ABEBE ([id number])[facility] (SBHLAB)[address] IRON SATURATION 25.7 % Normal 20.0-50.0 [facility] Comment on above: Performed By: #### L [id number] ####Magazine Journalist: KEMAR ABEBE ([id number])[facility] (SBHLAB)[address] IRON, TOTAL 48 ug/dL Normal [facility] Comment on above: Performed By: #### L [id number] ####Magazine Journalist: KEMAR ABEBE ([id number])[facility] (SBHLAB)[address] Iron and Iron binding capaci ty panelon 10-20-2024 Interpretation and review of laboratory results Abnormal [facility] Iron [Mass/Vol] 48 ug/dL [facility] Iron binding capacity [Mass/Vol] 187 ug/dL Low 250 - 450 ug/dL [facility] Iron saturation [Mass fraction] 25.7 % 20.0 - 50.0 % [facility] Laboratory - Chemistry and C hemistry - challengeon 10-20-2024 Glucose [Mass/Vol] 260 mg/dL High 70 - 100 mg/dL [facility] Glucose [Mass/Vol] 373 mg/dL High 70 - 100 mg/dL [facility] Glucose [Mass/Vol] 445 mg/dL High 70 - 100 mg/dL [facility] Glucose [Mass/Vol] 445 mg/dL High 70 - 100 mg/dL [facility] Procalcitonin [Mass/Vol] 2 ng/mL High NINF - 0.07 ng/mL [facility] CRP [Mass/Vol] 261.6 mg/L High [facility] mg/L [facility] Laboratory - Microbiology an d Antimicrobial susceptibilityOrdered By: Sagrario Clark on 10-20-2024 Bacteria identified Cx Nom (U) Insignificant growth based on current clinical guidelines [facility] No Panel Informationon 10-20 Interpretation and review of laboratory results Abnormal [facility] Performed by: [facility], [address] [facility] [address] CLIA ID: [id number] [facility] Interpretation and review of laboratory results Abnormal [facility] Performed by: [facility], [address] [facility], [facility] [address] CLIA ID: [id number] [facility] Interpretation and review of laboratory results Abnormal [facility] Performed by: [facility], [address], [facility] [address] CLIA ID: [id number] [facility] Interpretation and review of laboratory results Abnormal [facility] Performed by: [facility], [address], [facility] [address] CLIA ID: [id number] [facility] Nursing Noteon 10-20-2024 Nursing Note Report called to [address] [place] [address] [facility] Nursing Note Notified Lisa guerrero APRN and Dr. Thomas regarding patients BS. New orders placed. [facility] PROCALCITONIN TESTon 024 PROCALCITONIN 2.00 ng/mL High <0.07 [facility] Comment on above: Result Comment: ORDE R COMMENTS:PCT <0.50 = Low risk of severe sepsis and/or septic shock.PCT >2.00 = High risk of severe sepsis and/or septic shock. Performed By: #### L [id number], LAB17, [id number] ####Magazine Journalist: KEMAR ABEBE ([id number])[facility] ([facility] [place] [address] Procalcitonin [Mass/Vol]on 12-21-2023 Interpretation and review of laboratory results Abnormal [facility] PCT <0.50 = Low risk of severe sepsis and/or septic shock. PCT >2.00 = High risk of severe sepsis and/or septic shock. [facility] Progress Noteon 10-20-2024 Progress Note Normal [facility] Progress Note Normal [facility] Progress Note Normal [facility] Progress Note Normal [facility] Progress Note Nutrition rescreen completed. Patient is NPO/Clear liquid >3 days. Refer to Dietitian. Normal [facility] 30on 10-19-2024 30 Normal [facility] [id number] 10-19-2024 [id number] Normal [facility] 36on 10-19-2024 36 Needs to be seen for follow up with any provider, will need ECF to arrange transportation so that patient can be seen in office ans no longer available to manage over the phone Normal [facility] CBC W Auto Differential pane l (Bld)on 10-19-2024 Erythrocyte distribution width (RBC) [Ratio] 14.5 % 11.5 - 15.0 % [facility] Hematocrit (Bld) [Volume fraction] 34.4 % Male: 40.0-52.0 ; Female: 35.0-47.0 [facility] Hemoglobin (Bld) [Mass/Vol] 10.9 g/dL Low 11.7 - 18.0 g/dL [facility] MCH (RBC) [Entitic mass] 27.7 pg 26.0 - 34.0 pg [facility] MCHC (RBC) [Mass/Vol] 31.7 % 30.5 - 36.0 % [facility] MCV (RBC) [Entitic vol] 87.3 fL 77.0 - 99.0 fL [facility] Platelet mean volume (Bld) [Entitic vol] 9.6 fL 9.0 - 12.7 fL [facility] Platelets (Bld) [#/Vol] 339 10*3/uL 140 - 440 10*3/uL [facility] RBC (Bld) [#/Vol] 3.94 10*6/uL Male: 4.40-5.90; Female: 3.80-5.20 [facility] WBC (Bld) [#/Vol] 21.8 10*3/uL High 3.6 - 10.7 10*3/uL [facility] CBC WITH AUTO DIFFERENTIALon 10-19-2024 Erythrocyte distribution width (RBC) [Ratio] 14.5 % Normal 11.5-15.0 [facility] Comment on above: Performed By: #### L [id number], [id number] ####Magazine Journalist: KEMAR ABEBE ([id number])[facility] ([facility] [place] [address] Hematocrit (Bld) [Volume fraction] 34.4 % Normal Male: 40.0-52.0 ; Female: 35.0-47.0 [facility] Comment on above: Performed By: #### L [id number], [id number] ####Magazine Journalist: KEMAR ABEBE ([id number])[facility] ([facility])[address] [place] [address] Hemoglobin (Bld) [Mass/Vol] 10.9 g/dL Low 11.7-18.0 [facility] Comment on above: Performed By: #### L [id number], [id number] ####Magazine Journalist: KEMAR ABEBE ([id number])[facility] (SBHLAB)[address] [place] [address] MCH (RBC) [Entitic mass] 27.7 pg Normal 26.0-34.0 [facility] Comment on above: Performed By: #### L [id number], [id number] ####Magazine Journalist: KEMAR ABEBE ([id number])[facility] (SBHLAB)[address] [place] [address] MCHC 31.7 % Normal 30.5-36.0 [facility] Comment on above: Performed By: #### L [id number], [id number] ####Magazine Journalist: KEMAR ABEBE ([id number])[facility] (SBHLAB)[address] MCV (RBC) [Entitic vol] 87.3 fL Normal 77.0-99.0 [facility] Comment on above: Performed By: #### L [id number], [id number] ####Magazine Journalist: KEMAR ABEBE ([id number])[facility]ENTERWar[facility] (SBHLAB)[address] Platelet mean volume (Bld) [Entitic vol] 9.6 fL Normal 9.0-12.7 [facility] Comment on above: Performed By: #### L [id number], [id number] ####Magazine Journalist: KEMAR ABEBE ([id number])[facility]ENTERWarren [facility] (SBHLAB)[address] Platelets (Bld) [#/Vol] 339 10*3/uL Normal 140-440 [facility] Comment on above: Performed By: #### L [id number], [id number] ####Magazine Journalist: KEMAR ABEBE ([id number])[facility]ENTERWarren [facility] (SBHLAB)[address] [place] [address] RBC (Bld) [#/Vol] 3.94 10*6/uL Normal Male: 4.40-5.90; Female: 3.80-5.20 [facility] Comment on above: Performed By: #### L [id number], [id number] ####Magazine Journalist: KEMAR ABEBE ([id number])[facility]ENTERWarren [facility] (SBHLAB)[address] [place] [address] [place] WBC (Bld) [#/Vol] 21.8 10*3/uL High 3.6-10.7 [facility] Comment on above: Performed By: #### L [id number], [id number] ####Magazine Journalist: KEMAR ABEBE ([id number])[facility] (SBHLAB)[address] COMPREHENSIVE METABOLIC PANE Gigi 10-19-2024 Albumin [Mass/Vol] 2.8 g/dL Low 3.5-5.0 [facility] Comment on above: Performed By: #### L AB17 ####Magazine Journalist: KEMAR ABEBE ([id number])[facility] (SBHLAB)[address] ALP [Catalytic activity/Vol] 151 U/L Normal [facility] Comment on above: Performed By: #### L [id number] ####Magazine Journalist: KEMAR ABEBE ([phone])[facility] [place] (SBHL[facility])[address] ALT [Catalytic activity/Vol] 83 U/L Normal [facility] Comment on above: Performed By: #### L [id number] ####Magazine Journalist: KEMAR ABEBE ([phone])[facility] [place] (SBHLAB)[address] Anion gap [Moles/Vol] 11 mmol/L Normal 3-13 [facility] Comment on above: Performed By: #### L [id number] ####Magazine Journalist: KEMAR ABEBE ([id number])[facility] [place] (SBHLAB)[address] AST [Catalytic activity/Vol] 50 U/L High <34 [facility] Comment on above: Performed By: #### L [id number] ####Magazine Journalist: KEMAR ABEBE ([id number])[facility] [place] (SBHLAB)[address] Bilirubin [Mass/Vol] 0.8 mg/dL Normal <1.2 [facility] Comment on above: Performed By: #### L [id number] ####Magazine Journalist: KEMAR ABEBE ([phone])[facility] [place] (SBHLAB)155 [place] [address] [place] Calcium [Mass/Vol] 8.9 mg/dL Normal 8.4-10.2 [facility] Comment on above: Performed By: #### L [id number] ####Magazine Journalist: KEMAR ABEBE ([phone])[facility] [place] (SBHLAB)[address] Chloride [Moles/Vol] 102 mmol/L Normal 98-107 [facility] Comment on above: Performed By: #### L [id number] ####Magazine Journalist: KEMAR ABEBE ([id number])[facility] [place] (SBHLAB)[address] CO2 [Moles/Vol] 22 mmol/L Normal 22-29 [facility] Comment on above: Performed By: #### L [id number] ####Magazine Journalist: KEMAR ABEBE ([id number])[facility] [place] (SBHLAB)[address] Creatinine [Mass/Vol] 1.15 mg/dL Normal [facility] Comment on above: Performed By: #### L [id number] ####Magazine Journalist: KEMAR ABEBE ([phone])[facility] GLOMERULAR FILTRATION RATE ML/MIN/1.73 SQ M.PREDICTED 55.7 mL/min/1.73m*2 Low >60.0 [facility] Comment on above: Result Comment: Calc ulation based on the Chronic Kidney Disease Epidemiology Collaboration (CKD-EPI) equation refit without adjustment for race Performed By: #### L [id number] ####Magazine Journalist: KEMAR ABEBE ([phone])[facility]ENTER[facility] [place] (SBHLAB)155 [place] [address] [place] Glucose [Mass/Vol] 223 mg/dL High 74-100 [facility] Comment on above: Performed By: #### L [id number] ####Magazine Journalist: KEMAR ABEBE ([phone])[facility] [place] (SBHLAB)155 [place] [address] [place] Potassium [Moles/Vol] 3.6 mmol/L Normal 3.5-5.1 [facility] Comment on above: Result Comment: [facility] potassium values may be up to 0.5 mmol/L lower than serum values. Performed By: #### L [id number] ####Magazine Journalist: KEMAR ABEBE ([phone])[facility]ENTERWar[facility] (SBHLAB)[address] Protein [Mass/Vol] 6.5 g/dL Normal 6.4-8.3 [facility] Comment on above: Performed By: #### L [id number] ####Magazine Journalist: KEMAR ABEBE ([phone])[facility] (SBHLAB)[address] Sodium [Moles/Vol] 135 mmol/L Low 136-145 [facility] Comment on above: Performed By: #### L [id number] ####Magazine Journalist: KEMAR ABEBE ([id number])[facility] (SBHLAB)[address] Urea nitrogen [Mass/Vol] 32 mg/dL High 9-23 [facility] Comment on above: Performed By: #### L [id number] ####Magazine Journalist: KEMAR ABEBE ([phone])[facility] (SBHLAB)[address] [place] [address] CULTURE ANAEROBICon 10-19-20 24 CULTURE ANAEROBIC Normal [facility] Comment on above: Performed By: #### L [id number] ####Magazine Journalist: MARCELA LUCERO ([id number])[facility] ([facility])[address] [place] [address] [place] CULTURE ANAEROBIC Normal [facility] Comment on above: Order Comment: Colle cted during drain placement Performed By: #### L [id number] ####Magazine Journalist: MARCELA LUCERO ([id number])[facility] ([facility])[address] [place] [address] [place] CULTURE, AEROBIC BACTERIA WI TH GRAM STAINon 10-19-2024 CULTURE, AEROBIC BACTERIA WITH GRAM STAIN Normal [facility] Comment on above: Performed By: #### L [id number] ####Magazine Journalist: MARCELA LUCERO ([phone])[facility] ([facility])[address] [place] [address] CULTURE, AEROBIC BACTERIA WITH GRAM STAIN Normal [facility] Comment on above: Order Comment: Colle cted during drain placement Performed By: #### L [id number] ####Magazine Journalist: MARCELA LUCERO ([phone])[facility] ([facility])[address] [place] [address] Comprehensive metabolic 1998 panelon 10-19-2024 Albumin [Mass/Vol] 2.8 g/dL Low 3.5 - 5.0 g/dL [facility] ALP [Catalytic activity/Vol] 151 U/L [facility] ALT [Catalytic activity/Vol] 83 U/L [facility] Anion gap [Moles/Vol] 11 mmol/L 3 - 13 mmol/L [facility] AST [Catalytic activity/Vol] 50 U/L High NINF - 34 U/L [facility] Bilirubin [Mass/Vol] 0.8 mg/dL NINF - 1.2 mg/dL [facility] Calcium [Mass/Vol] 8.9 mg/dL 8.4 - 10. 2 mg/dL [facility] Chloride [Moles/Vol] 102 mmol/L 98 - 10 7 mmol/L [facility] CO2 [Moles/Vol] 22 mmol/L 22 - 29 mmol/L [facility] Creatinine [Mass/Vol] 1.15 mg/dL [facility] GFR/1.73 sq M.predicted (S/P/Bld) [Vol rate/Area] 55.7 mL/min Low - PINF [facility] Comment on above: Calculation based on the Chronic Kidney Disease Epidemiology Collaboration (CKD-EPI) equation refit without adjustment for race Glucose [Mass/Vol] 223 mg/dL High 74 - 100 mg/dL [facility] Interpretation and review of laboratory results Abnormal [facility] Potassium [Moles/Vol] 3.6 mmol/L 3.5 - 5.1 mmol/L [facility] Comment on above: Plasma potassium helen ues may be up to 0.5 mmol/L lower than serum values. Protein [Mass/Vol] 6.5 g/dL 6.4 - 8.3 g/dL [facility] Sodium [Moles/Vol] 135 mmol/L Low 136 - 145 mmol/L [facility] Urea nitrogen [Mass/Vol] 32 mg/dL High 9 - 23 mg/dL [facility] Consulton 10-19-2024 Consult Normal [facility] Consult Normal [facility] Consult Normal [facility] Consult Normal [facility] HEMOGLOBIN A1Con 10-19-2024 Glucose [Mass/Vol] 151 mg/dL Normal [facility] Comment on above: Result Comment: MARIE Askew COMMENTS:HbA1c values of 5.7-6.4 percent indicate an increased risk for developing diabetes mellitus. HbA1c values greater than or equal to 6.5 percent are diagnostic of diabetes mellitus. For diagnosis of diabetes in individuals without unequivocal hyperglycemia, results should be confirmed by repeat testing. Performed By: #### L [id number] ####Magazine Journalist: KEMAR ABEBE ([phone])[facility] ([facility])[address] [place] [address] HEMOGLOBIN A1C 6.9 %HbA1C High <5.7 [facility] Comment on above: Result Comment: Norm al less than 5.7%Prediabetes 5.7% to 6.4%Diabetes 6.5% or higher--HgbA1C levels may not be accurate in patients who have renal disease, received recent blood transfusions, are anemic, or who have dyshemoglobinemia. Performed By: #### L [id number] ####Magazine Journalist: KEMAR ABEBE ([phone])[facility] ([facility])[address] [place] [address] Laboratory - Chemistry and C hemistry - challengeon 10-19-2024 Glucose [Mass/Vol] 396 mg/dL High 70 - 100 mg/dL [facility] Glucose [Mass/Vol] 374 mg/dL High 70 - 100 mg/dL [facility] Average glucose Estimated from glycated hemoglobin (Bld) [Mass/Vol] 151 mg/dL [facility] Glucose [Mass/Vol] 336 mg/dL High 70 - 100 mg/dL [facility] Glucose [Mass/Vol] 299 mg/dL High 70 - 100 mg/dL [facility] Glucose [Mass/Vol] 207 mg/dL High 70 - 100 mg/dL [facility] Laboratory - Coagulationon 1 12-20-2023 PT Coag (Bld) [Time] 14 s High 9.0 - 1 2.0 s [facility] Laboratory - Hematology and Cell countson 10-19-2024 HbA1c (Bld) [Mass fraction] 6.9 % High NINF [facility] Comment on above: Normal less than 5.7 % Prediabetes 5.7% to 6.4% Diabetes 6.5% or higher --HgbA1C levels may not be accurate in patients who have renal disease, received recent blood transfusions, are anemic, or who have dyshemoglobinemia. Lymphocytes (Bld) [#/Vol] 2.2 10*3/uL 1.0 - 4.3 10*3/uL [facility] Lymphocytes/100 WBC (Bld) 10 % Low 15 - 45 % [facility] Monocytes (Bld) [#/Vol] 0.2 10*3/uL 0.0 - 0.9 10*3/uL [facility] Monocytes/100 WBC (Bld) 1 % Low 5 - 13 % [facility] Neutrophils (Bld) [#/Vol] 19.4 10*3/uL High 1.8 - 7.5 10*3/uL [facility] RBC morphology finding Nom (Bld) Normal [facility] Segmented neutrophils/100 WBC (Bld) 89 % High 38 - 82 % [facility] Lower GI hemoglobin spec 1 I A Ql (Stl)Ordered By: Debbie Kearns on 10-19-2024 Fecal occult blood Positive Abnormal Negative [facility] Interpretation and review of laboratory results Abnormal [facility] Methodology: Immunoassay [facility] MANUAL DIFFERENTIAL (CELLAVI DORIAN)on 10-19-2024 BAND NEUTROPHILS TOTAL PER COUNTED LEUKOCYTES BY MANUAL COUNT Normal [facility] Comment on above: Performed By: #### L [id number], [id number] ####Magazine Journalist: KEMAR ABEBE ([phone])[facility] [place] (SBHLAB)[address] [place] [address] BASOPHILS TOTAL PER COUNTED LEUKOCYTES BY MANUAL COUNT Normal [facility] Comment on above: Performed By: #### L [id number], [id number] ####Magazine Journalist: KEMAR ABEBE ([id number])[facility] [place] (SBHLAB)[address] [place] [address] [place] BLASTS TOTAL PER COUNTED LEUKOCYTES BY MANUAL COUNT Normal [facility] Comment on above: Performed By: #### L [id number], [id number] ####Magazine Journalist: KEMAR BANUELOSCER ([phone])[facility] [place] (SBHLAB)[address] [place] [address] [place] EOSINOPHILS TOTAL PER COUNTED LEUKOCYTES BY MANUAL COUNT [facility] Comment on above: Performed By: #### L [id number], [id number] ####Magazine Journalist: KEMAR BANUELOSCER ([phone])[facility] [place] (SBHLAB)[address] [place] [address] [place] LYMPHOCYTES (10*3/UL) IN BLOOD-CELLAVISION 2.2 10*3/uL Normal 1.0-4.3 [facility] Comment on above: Performed By: #### L [id number], [id number] ####Magazine Journalist: KEMAR ABEBE ([id number])[facility] [place] (SBHLAB)[address] [place] [address] [place] LYMPHOCYTES TOTAL PER COUNTED LEUKOCYTES BY MANUAL COUNT [address] [place] [address] Comment on above: Performed By: #### L [id number], [id number] ####Magazine Journalist: KEMAR ABEBE ([phone])[facility] [place] (SBHLAB)[address] [place] [address] [place] LYMPHOCYTES/100 LEUKOCYTES IN BLOOD-CELLAVISION 10 % Low 15-45 [facility] Comment on above: Performed By: #### L [id number], [id number] ####Magazine Journalist: KEMAR BANUELOSCER ([id number])[facility] [place] (SBHLAB)[address] [place] [address] [place] METAMYELOCYTES TOTAL PER COUNTED LEUKOCYTES BY MANUAL COUNT [facility] Comment on above: Performed By: #### L [id number], [id number] ####Magazine Journalist: KEMAR ABEBE ([phone])[facility] [place] (SBHLAB)[address] [place] [address] [place] MONOCYTES (10*3/UL) IN BLOOD-CELLAVISION 0.2 10*3/uL Normal 0.0-0.9 [facility] Comment on above: Performed By: #### L [id number], [id number] ####Magazine Journalist: KEMAR BANUELOSCER ([id number])[facility] [place] (SBHLAB)[address] [place] [address] [place] MONOCYTES TOTAL PER COUNTED LEUKOCYTES BY MANUAL COUNT 1 Normal [facility] Comment on above: Performed By: #### L [id number], [id number] ####Magazine Journalist: KEMAR BANUELOSCER ([phone])[facility] [place] (SBHLAB)[address] [place] [address] [place] MONOCYTES/100 LEUKOCYTES IN BLOOD-SOY 1 % Low 5-13 [facility] Comment on above: Performed By: #### L [id number], [id number] ####Magazine Journalist: KEMAR ABEBE ([id number])[facility] [place] (SBHLAB)[address] [place] [address] [place] MYELOCYTES COUNTED BY MANUAL COUNT [facility] Comment on above: Performed By: #### L [id number], [id number] ####Magazine Journalist: KEMAR ABEBE ([id number])[facility] [place] (SBHLAB)[address] [place] [address] [place] NEUTROPHILS TOTAL PER COUNTED LEUKOCYTES BY MANUAL COUNT [address] [facility] Comment on above: Performed By: #### L [id number], [id number] ####Magazine Journalist: KEMAR BANUELOSCER ([id number])[facility] [place] (SBHLAB)[address] [place] [address] [place] PROMYELOCYTES TOTAL PER COUNTED LEUKOCYTES BY MANUAL COUNT [facility] Comment on above: Performed By: #### L [id number], [id number] ####Magazine Journalist: KEMAR BANUELOSCER ([id number])[facility] [place] (SBHLAB)[address] [place] [address] [place] RBC MORPHOLOGY IN BLOOD Normal Normal [facility] Comment on above: Performed By: #### L [id number], [id number] ####Magazine Journalist: KEMAR ABEBE ([phone])[facility]ENTER[facility] [place] (SBHLAB)[address] SEGMENTED NEUTROPHILS (10*3/UL) IN BLOOD-CELLAVISION 19.4 10*3/uL High 1.8-7.5 [facility] Comment on above: Performed By: #### L [id number], [id number] ####Magazine Journalist: KEMAR ABEBE ([id number])[facility]ENTER[facility] (SBHLAB)[address] [place] [address] [place] SEGMENTED NEUTROPHILS/100 LEUKOCYTES-CE 89 % High 38-82 [facility] Comment on above: Performed By: #### L [id number], [id number] ####Magazine Journalist: KEMAR ABEBE ([id number])[facility]ENTERWar[facility] [place] (SBHLAB)[address] UNCLASSIFIED CELLS TOTAL PER COUNTED LEUKOCYTES BY MANUAL COUNT [facility] Comment on above: Performed By: #### L [id number], [id number] ####Magazine Journalist: KEMAR ABEBE ([id number])[facility]ENTER[facility] [place] (SBHLAB)[address] VARIANT LYMPHOCYTES TOTAL PER COUNTED LEUKOCYTES BY MANUAL COUNT [facility] Comment on above: Performed By: #### L [id number], [id number] ####Magazine Journalist: KEMAR ABEBE ([id number])[facility]ENTERWar[facility] [place] (SBHLAB)[address] No Panel Informationon 10-19 Interpretation and review of laboratory results Abnormal [facility] Performed by: [facility], [address] [place] [address] CLIA ID: [id number] [facility] Interpretation and review of laboratory results Abnormal [facility] Performed by: [facility], [address] [address] CLIA ID: [id number] [facility] Interpretation and review of laboratory results Abnormal [facility] HbA1c values of 5.7- 6.4 percent indicate an increased risk for developing diabetes mellitus. HbA1c values greater than or equal to 6.5 percent are diagnostic of diabetes mellitus. For diagnosis of diabetes in individuals without unequivocal hyperglycemia, results should be confirmed by repeat testing. [facility] Interpretation and review of laboratory results Abnormal [facility] Performed by: [facility], [address] [place] [address] CLIA ID: [id number] [facility] Interpretation and review of laboratory results Abnormal [facility] Performed by: [facility], [address] [place] [address] CLIA ID: [id number] [facility] Atypical Lymphocytes Manual [facility] Bands Manual [facility] Basophils Manual [facility] Blasts Manual [facility] Eosinophils Manual [facility] Interpretation and review of laboratory results Abnormal [facility] Lymphocytes Manual 10 [facility] Metamyelocytes Manual [facility] Monocytes Manual 1 [facility] Myelocytes Manual [facility] Neutrophils Manual 89 [facility] Promyelocytes Manual [facility] Unclassified Cells, Manual [facility] Interpretation and review of laboratory results Abnormal [facility] Performed by: [facility], [address] [place] [address] CLIA ID: [id number] [facility] OCCULT BLOOD, STOOLon 2023 OCCULT BLOOD, STOOL FECAL OCCULT, STOOL (A) Reference Positive Negative ORDER COMMENTS: (A) Methodology: Immunoassay Normal [facility] Comment on above: Performed By: #### L [id number] ####Magazine Journalist: KEMAR ABEBE ([phone])[facility]ENTER[facility] (SBHLAB)[address] [place] [address] PROTHROMBIN TIMEon INR Coag (PPP) [Relative time] 1.3 {INR} High 0.9-1.1 [facility] Comment on above: Result Comment: Ubaldo [...] Myocardial Infarction Performed By: #### L [id number] ####Magazine Journalist: KEMAR ABEBE ([phone])[facility]ENTER[facility] [place] (SBHLAB)[address] PT Coag (PPP) [Time] 14.0 s High 9.0-12.0 [facility] Comment on above: Performed By: #### L [id number] ####Magazine Journalist: KEMAR ABEBE ([id number])[facility]ENTERWarren KASPERJermaine (SBHLAB)[address] [place] [address] PT Coag (Bld) [Time]on 10-19 INR Coag (PPP) [Relative time] 1.3 {INR} High 0.9 - 1.1 [facility] Comment on above: Recommended Anticoag ulant [...] Interpretation and review of laboratory results Abnormal [facility] Progress Noteon 10-19-2024 Progress Note Normal [facility] Progress Note Normal [facility] US GUIDED PERCUTANEOUS PERIT HARRY OR RETROPERITONEAL FLUID COLLECTION DRAINAGEon 10-19-2024 US GUIDED PERCUTANEOUS PERITONEAL OR RETROPERITONEAL FLUID COLLECTION DRAINAGE Normal [facility] US Guidance for biopsy of Un specified body regionon 10-19-2024 Successful placement of a drainage catheter into the gallbladder using ultrasound guidance. Report Dictated on Electronically Signed By: Alfredito Baumann MD Electronically Signed Date/Time: 10/19/2024 2:22 PM [facility] [employer] Patient Name: WILL ALVARADO : 1965 [...] advanced. Subcutaneous tract was dilated. An 8 Georgian drainage catheter advanced over the wire. The catheter was attached to a bag. A dressing was applied. [facility] Alfredito Baumann MD - 10/19/2024 Patient Name: WILL JACINTO : 1965 Exam [...] advanced. Subcutaneous tract was dilated. An 8 Georgian drainage catheter advanced over the wire. The catheter was attached to a bag. A dressing was applied. IMPRESSION: Successful placement of a drainage catheter into the gallbladder using ultrasound guidance. Report Dictated on Electronically Signed By: Alfredito Baumann MD Electronically Signed Date/Time: 10/19/2024 2:22 PM EST [facility] Radiology Study observation (narrative) [facility] US Guidance for biopsy of Un specified body regionOrdered By: Alfredito Baumann on 10-19-2024 [facility] Work Phone: Urinalysis complete panel (U )Ordered By: Jyoti Cartwright on 10-19-2024 Amorphous Crystals, Urine Few Abnormal Negative /HPF [facility] Bacteria LM.HPF (Urine sed) [#/Area] Few Abnormal Negative /HPF [facility] Bilirubin Ql (U) Negative Negative mg/dL [facility] Clarity (U) Turbid Abnormal Clear [facility] Color (U) Yellow Lt. Yellow [facility] Epithelial cells.squamous LM.HPF (Urine sed) [#/Area] 0-2 [facility] Glucose Ql (U) Normal Normal (<70) mg/dL [facility] Granular casts LM.HPF (Urine sed) [#/Area] 3-5 Abnormal Negative /LPF [facility] Hemoglobin Ql (U) 0.2 mg/dL Abnormal Negative [facility] Hyaline casts Auto (Urine sed) [#/Area] 3-5 Abnormal Negative /LPF [facility] Interpretation and review of laboratory results Abnormal [facility] Ketones (U) [Mass/Vol] Negative Negat bernard mg/dL [facility] Leukocyte clumps LM.HPF (Urine sed) [#/Area] Rare Abnormal Negative /HPF [facility] Leukocyte esterase Test strip Ql (U) 500 Abnormal Negative Kat/uL [facility] Mucus LM.HPF (Urine sed) [#/Area] Few Negative /LPF [facility] Nitrite Ql (U) Negative Negative [facility] Non-Squamous Epithalial Cells, Urine 0-2 Abnormal Negative /HPF [facility] pH (U) 5.5 [pH] 5.0 - 8.0 pH [facility] Protein (U) [Mass/Vol] 50 mg/dL Abnormal Negative [facility] RBC LM.HPF (Urine sed) [#/Area] 11-25 Abnormal [facility] Specific gravity (U) [Rel density] High 1.005 - 1.030 [facility] Urobilinogen (U) [Mass/Vol] Normal Normal (0-1) mg/dL [facility] WBC LM.HPF (Urine sed) [#/Area] 51-100 Abnormal [facility] CBC W Auto Differential pane l (Bld)Ordered By: Silvia Bone on 10-18-2024 Erythrocyte distribution width (RBC) [Ratio] 14.5 % 11.5 - 15.0 % [facility] Hematocrit (Bld) [Volume fraction] 36.8 % Male: 40.0-52.0 ; Female: 35.0-47.0 [facility] Hemoglobin (Bld) [Mass/Vol] 11.6 g/dL Low 11.7 - 18.0 g/dL [facility] Interpretation and review of laboratory results Abnormal [facility] MCH (RBC) [Entitic mass] 27.1 pg 26.0 - 34.0 pg [facility] MCHC (RBC) [Mass/Vol] 31.5 % 30.5 - 36.0 % [facility] MCV (RBC) [Entitic vol] 86 fL 77.0 - 99.0 fL [facility] Platelet mean volume (Bld) [Entitic vol] 9.8 fL 9.0 - 12.7 fL [facility] Platelets (Bld) [#/Vol] 373 10*3/uL 140 - 440 10*3/uL [facility] RBC (Bld) [#/Vol] 4.28 10*6/uL Male: 4.40-5.90; Female: 3.80-5.20 [facility] WBC (Bld) [#/Vol] 25.9 10*3/uL High 3.6 - 10.7 10*3/uL [facility] CBC WITH AUTO DIFFERENTIALon 10-18-2024 Erythrocyte distribution width (RBC) [Ratio] 14.5 % Normal 11.5-15.0 [facility] Comment on above: Performed By: #### L [id number], [id number] ####Magazine Journalist: KEMAR ABEBE ([phone])[facility]I KASPERJermaine (SBHLAB)[address] [place] [address] Hematocrit (Bld) [Volume fraction] 36.8 % Normal Male: 40.0-52.0 ; Female: 35.0-47.0 [facility] Comment on above: Performed By: #### L [id number], [id number] ####Magazine Journalist: KEMAR ABEBE ([phone])[facility] CENTERWarren WADEPRESBYTERIAN KASEMAN HOSPITALJermaine (SBHLAB)[address] [place] [address] Hemoglobin (Bld) [Mass/Vol] 11.6 g/dL Low 11.7-18.0 [facility] Comment on above: Performed By: #### L [id number], [id number] ####Magazine Journalist: KEMAR ABEBE ([phone])[facility] CENTERWarren [facility]ARIZONA [facility] (SBHLAB)[address] [place] [address] MCH (RBC) [Entitic mass] 27.1 pg Normal 26.0-34.0 [facility] Comment on above: Performed By: #### L [id number], [id number] ####Magazine Journalist: KEMAR ABEBE ([phone])[facility] CENTERWarren [facility]ARIZ[facility] (HLAB)[address] [place] [address] MCHC 31.5 % Normal 30.5-36.0 [facility] Comment on above: Performed By: #### L [id number], [id number] ####Magazine Journalist: KEMAR ABEBE ([phone])[facility] CENTERWarren [facility] (SBHLAB)[address] [place] [address] MCV (RBC) [Entitic vol] 86.0 fL Normal 77.0-99.0 [facility] Comment on above: Performed By: #### L [id number], [id number] ####Magazine Journalist: KEMAR ABEBE ([phone])[facility] CENTERWarren [facility]ARIZ[facility] (SBHLAB)[address] [place] [address] Platelet mean volume (Bld) [Entitic vol] 9.8 fL Normal 9.0-12.7 [facility] Comment on above: Performed By: #### L [id number], [id number] ####Magazine Journalist: KEMAR ABEBE ([phone])[facility] CENTERA SHERIPRESBYTERIAN KASEMAN HOSPITALN (SBHLAB)[address] Platelets (Bld) [#/Vol] 373 10*3/uL Normal 140-440 [facility] Comment on above: Performed By: #### L [id number], [id number] ####Magazine Journalist: KEMAR ABEBE ([id number])[facility]OSPITALN (SBHLAB)[address] RBC (Bld) [#/Vol] 4.28 10*6/uL Normal Male: 4.40-5.90; Female: 3.80-5.20 [facility] Comment on above: Performed By: #### L [id number], [id number] ####Magazine Journalist: KEMAR ABEBE ([phone])[facility] HOSPITALN (SBHLAB)[address] [place] [address] WBC (Bld) [#/Vol] 25.9 10*3/uL High 3.6-10.7 [facility] Comment on above: Performed By: #### L [id number], [id number] ####Magazine Journalist: KEMAR ABEBE ([phone])[facility] (SBHLAB)[address] [place] [address] COMPLETE URINALYSISon 2023 AMORPHOUS CRYSTALS (#/HPF) IN URINE Few Abnormal Negative [facility] Comment on above: Performed By: #### L [id number] ####Magazine Journalist: MARCELA LUCERO ([phone])[facility] (SACLAB)[address] [place] [address]#### [id number] ####Magazine Journalist: KEMAR ABEBE ([id number])[facility] (SBHLAB)[address] [place] [address] BACTERIA (#/HPF) IN URINE Few Abnormal Negative [facility] Comment on above: Performed By: #### L [id number] ####Magazine Journalist: MARCELA LUCERO ([phone])[facility] (SACLAB)[address] [place] [address]#### [id number] ####Magazine Journalist: KMEAR ABEBE ([id number])[facility] (SBHLAB)[address] [place] [address] BILIRUBIN, TOTAL PRESENCE IN URINE Negative Normal Negative [facility] Comment on above: Performed By: #### L [id number] ####Magazine Journalist: MARCELA LUCERO ([phone])[facility] (SACLAB)[address] [place] [address]#### [id number] ####Magazine Journalist: KEMAR ABEBE ([phone])[facility] (SBAB)[address] [place] [address] Clarity (U) Turbid Abnormal Clear [facility] Comment on above: Performed By: #### L [id number] ####Magazine Journalist: MARCELA LUCERO ([id number])[facility] (SACLAB)[address] [place] [address]#### [id number] ####Magazine Journalist: KEMAR ABEBE ([id number])[facility] (SBHLAB)[address] [place] [address] Color (U) Yellow Normal Lt. Yellow [facility] Comment on above: Performed By: #### L [id number] ####Magazine Journalist: MARCELA LUCERO ([id number])[facility] (SACLAB)[address] [place] [address] [place]#### [id number] ####Magazine Journalist: KEMAR ABEBE ([id number])[facility] ([facility])[address] GLUCOSE (MG/DL) IN URINE Normal Normal Normal (<70) [facility] Comment on above: Performed By: #### L [id number] ####Magazine Journalist: MARCELA LUCERO ([id number])[facility] (SACLAB)[address] [place] [address]#### [id number] ####Magazine Journalist: KEMAR ABEBE ([phone])[facility] CENTERWarren WADEKATIA (SBHLAB)[address] [place] [address] GRANULAR CASTS (#/LPF) IN URINE 3-5 Abnormal Negative [facility] Comment on above: Performed By: #### L [id number] ####Magazine Journalist: MARCELA LUCERO ([phone])[facility] (SACLAB)[address] [place] [address]#### [id number] ####Magazine Journalist: KEMAR ABEBE ([id number])[facility]ENTERWarren ABRA[facility] CAMPUSKATIA ([facility])[address] [place] [address] HEMOGLOBIN PRESENCE IN URINE 0.2 mg/dL Abnormal Negative [facility] Comment on above: Performed By: #### L [id number] ####Magazine Journalist: MARCELA LUCERO ([id number])[facility] (SACLAB)[address] [place] [address]#### [id number] ####Magazine Journalist: KEMAR ABEBE ([phone])[facility] CENTERWarren SHERIKATIA ([facility])[address] [place] [address] HYALINE CASTS (#/LPF) IN URINE SEDIMENT BY MICROSCOPY 3-5 Abnormal Negative [facility] Comment on above: Performed By: #### L [id number] ####Magazine Journalist: MARCELA LUCERO ([phone])[facility] (SACLAB)[address] [place] [address]#### [id number] ####Magazine Journalist: KEMAR ABEBE ([phone])[facility] ([facility])[address] [place] [address] Ketones Ql (U) Negative Normal Negative [facility] Comment on above: Performed By: #### L [id number] ####Magazine Journalist: MARCELA LUCERO ([id number])[facility] (SACLAB)[address] [place] [address]#### [id number] ####Magazine Journalist: KEMAR ABEBE ([id number])[facility] CENTERA BARBMARYN (SBHLAB)[address] [place] [address] LEUKOCYTE ESTERASE PRESENCE IN URINE BY TEST STRIP 500 Kat/uL Abnormal Negative [facility] Comment on above: Performed By: #### L [id number] ####Magazine Journalist: MARCELA LUCERO ([id number])[facility] (SACLAB)[address] [place] [address]#### [id number] ####Magazine Journalist: KEMAR ABEBE ([phone])[facility] CENTERA [place] (SBHLAB)[address] [place] [address] MUCUS (#/LPF) IN URINE SEDIMENT Few Normal Negative [facility] Comment on above: Performed By: #### L [id number] ####Magazine Journalist: MARCELA LUCERO ([id number])[facility] (SACLAB)[address] [place] [address]#### [id number] ####Magazine Journalist: KEMAR ABEBE ([id number])[facility] CENTERA BARBPRESBYTERIAN KASEMAN HOSPITALN (SBHLAB)[address] [place] [address] NITRITE PRESENCE IN URINE Negative Normal Negative [facility] Comment on above: Performed By: #### L [id number] ####Magazine Journalist: MARCELA LUCERO ([id number])[facility] (SACLAB)[address] [place] [address]#### [id number] ####Magazine Journalist: KEMAR ABEBE ([id number])[facility] CENTERA [place] (SBHLAB)[address] [place] [address] NON-SQUAMOUS EPITHELIAL (#/HPF) IN URINE 0-2 Abnormal Negative [facility] Comment on above: Performed By: #### L [id number] ####Magazine Journalist: MARCELA LUCERO ([phone])[facility] (SACLAB)[address] [place] [address]#### [id number] ####Magazine Journalist: KEMAR ABEBE ([id number])[facility] [place] (SBHLAB)[address] pH (U) 5.5 [pH] Normal 5.0-8.0 [facility] Comment on above: Performed By: #### L [id number] ####Magazine Journalist: MARCELA LUCERO ([id number])[facility] (SACLAB)[address] [place] [address]#### [id number] ####Magazine Journalist: KEMAR ABEBE ([id number])[facility] (SBHLAB)[address] [place] [address] Protein (U) [Mass/Vol] 50 mg/dL Abnormal Negative [facility] Comment on above: Performed By: #### L [id number] ####Magazine Journalist: MARCELA LUCERO ([id number])[facility] ([facility])[address] [place] [address]#### [id number] ####Magazine Journalist: KEMAR ABEBE ([phone])[facility] (SBHLAB)[address] [place] [address] RBC (#/HPF) IN URINE SEDIMENT 11-25 Abnormal 0-2 [facility] Comment on above: Performed By: #### L [id number] ####Magazine Journalist: MARCELA LUCERO ([phone])[facility] (SACLAB)[address] [place] [address]#### [id number] ####Magazine Journalist: KEMAR ABEBE ([id number])[facility] (SBHLAB)[address] [place] [address] Specific gravity (U) [Rel density] >1.030 High 1.005-1.030 [facility] Comment on above: Performed By: #### L [id number] ####Magazine Journalist: MARCELA LUCERO ([id number])[facility] (SACLAB)[address] [place] [address] [place]#### [id number] ####Magazine Journalist: KEMAR ABEBE ([id number])[facility] (SBHLAB)[address] SQUAMOUS EPITHELIAL CELLS (#/HPF) IN URINE SEDIMENT 0-2 Normal 3-5 [facility] rocket staff [facility] Comment on above: Performed By: #### L [id number] ####Magazine Journalist: MARCELA LUCERO ([phone])[facility] (SACLAB)[address] [place] [address]#### [id number] ####Magazine Journalist: KEMAR ABEBE ([id number])[facility] (SBHLAB)[address] [place] [address] UROBILINOGEN (MG/DL) IN URINE Normal Normal Normal (0-1) [facility] rocket staff [facility] Comment on above: Performed By: #### L [id number] ####Magazine Journalist: MARCELA LUCERO ([id number])[facility] (SACLAB)[address] [place] [address]#### [id number] ####Magazine Journalist: KEMAR ABEBE ([id number])[facility] (SBHLAB)[address] [place] [address] WBC (LEUKOCYTE) (#/HPF) IN URINE SEDIMENT 51-100 Abnormal 0-5 [facility] rocket staff [facility] Comment on above: Performed By: #### L [id number] ####Magazine Journalist: MARCELA LUCERO ([id number])[facility] (SACLAB)[address] [place] [address]#### [id number] ####Magazine Journalist: KEMAR ABEBE ([phone])[facility]BARIZONA [facility] (SBHLAB)[address] [place] [address] WBC (LEUKOCYTE) CLUMPS (#/HPF) IN URINE SEDIMENT Rare Abnormal Negative [facility] rocket staff [facility] Comment on above: Performed By: #### L [id number] ####Magazine Journalist: MARCELA LUCERO ([phone])[facility] (SACLAB)[address] [place] [address] [place]#### [id number] ####Magazine Journalist: KEMAR ABEBE ([phone])[facility] (SBHLAB)[address] COMPREHENSIVE METABOLIC PANE Gigi 10-18-2024 Albumin [Mass/Vol] 3.0 g/dL Low 3.5-5.0 [facility] Comment on above: Performed By: #### Elijah AB17, LAB99, [id number] ####Magazine Journalist: KEMAR ABEBE ([phone])[facility] CENTERA BARBPRESBYTERIAN KASEMAN HOSPITALN (SBHLAB)[address] ALP [Catalytic activity/Vol] 133 U/L Normal [facility] Comment on above: Performed By: #### Elijah AB17, LAB99, [id number] ####Magazine Journalist: KEMAR ABEBE ([id number])[facility] CENTERA BARBPRESBYTERIAN KASEMAN HOSPITALN (SBHLAB)[address] ALT [Catalytic activity/Vol] 67 U/L Normal [facility] Comment on above: Performed By: #### Elijah AB17, LAB99, [id number] ####Magazine Journalist: KEMAR ABEBE ([phone])[facility]ENTERA [place] (SBHLAB)[address] Anion gap [Moles/Vol] 13 mmol/L Normal 3-13 [facility] Comment on above: Performed By: #### Elijah AB17, LAB99, [id number] ####Magazine Journalist: KEMAR ABEBE ([phone])[facility]ENTERA [facility] (SBHLAB)[address] AST [Catalytic activity/Vol] 50 U/L High <34 [facility] Comment on above: Performed By: #### Elijah AB17, LAB99, [id number] ####Magazine Journalist: KEMAR ABEBE ([id number])[facility]ENTERA BARBPRESBYTERIAN KASEMAN HOSPITALN (SBHLAB)[address] Bilirubin [Mass/Vol] 0.7 mg/dL Normal <1.2 [facility] Comment on above: Performed By: #### Elijah AB17, LAB99, [id number] ####Magazine Journalist: KEMAR ABEBE ([id number])[facility]ENTERA [place] (SBHLAB)[address] Calcium [Mass/Vol] 9.0 mg/dL Normal 8.4-10.2 [facility] Comment on above: Performed By: #### Elijah AB17, LAB99, [id number] ####Magazine Journalist: KEMAR ABEBE ([id number])[facility]ENTERA [place] (SBHLAB)[address] Chloride [Moles/Vol] 103 mmol/L Normal 98-107 [facility] Comment on above: Performed By: #### Elijah AB17, LAB99, [id number] ####Magazine Journalist: KEMAR ABEBE ([id number])[facility]ENTERA [place] (SBHLAB)[address] CO2 [Moles/Vol] 21 mmol/L Low 22-29 [facility] Comment on above: Performed By: #### Elijah MENDOZA, LAB99, [id number] ####Magazine Journalist: KEMAR ABEBE ([id number])[facility]ENTERA [place] (SBHLAB)[address] Creatinine [Mass/Vol] 1.16 mg/dL Normal [facility] Comment on above: Performed By: #### Elijah AB17, LAB99, [id number] ####Magazine Journalist: KEMAR ABEBE ([id number])[facility]ENTERA [place] (SBHLAB)[address] [place] [address] [place] GLOMERULAR FILTRATION RATE ML/MIN/1.73 SQ M.PREDICTED 55.1 mL/min/1.73m*2 Low >60.0 [facility] Comment on above: Result Comment: Calc ulation based on the Chronic Kidney Disease Epidemiology Collaboration (CKD-EPI) equation refit without adjustment for race Performed By: #### L AB17, LAB99, [id number] ####Magazine Journalist: KEMAR ABEBE ([id number])[facility]ENTERA [place] (SBHLAB)[address] [place] [address] [place] Glucose [Mass/Vol] 226 mg/dL High 74-100 [facility] Comment on above: Performed By: #### L AB17, LAB99, [id number] ####Magazine Journalist: KEMAR ABEBE ([id number])[facility] (SBHLAB)[address] Potassium [Moles/Vol] 4.1 mmol/L Normal 3.5-5.1 [facility] Comment on above: Result Comment: [facility] potassium values may be up to 0.5 mmol/L lower than serum values. Performed By: #### L AB17, LAB99, [id number] ####Magazine Journalist: KEMAR ABEBE ([phone])[facility] (SBHLAB)[address] Protein [Mass/Vol] 6.7 g/dL Normal 6.4-8.3 [facility] Comment on above: Performed By: #### Elijah AB17, LAB99, [id number] ####Magazine Journalist: KEMAR ABEBE ([phone])[facility] (SBHLAB)[address] Sodium [Moles/Vol] 137 mmol/L Normal 136-145 [facility] Comment on above: Performed By: #### L AB17, LAB99, [id number] ####Magazine Journalist: KEMAR ABEBE ([phone])[facility] (SBHLAB)[address] Urea nitrogen [Mass/Vol] 24 mg/dL High 9-23 [facility] Comment on above: Performed By: #### L AB17, LAB99, [id number] ####Magazine Journalist: KEMAR ABEBE ([phone])[facility] (SBHLAB)[address] ABDOMEN PELVIS W CONTRAST on 10-18-2024 CT ABDOMEN PELVIS W CONTRAST Normal [facility] CT Abdomen and Pelvis W cont rast Erica 10-18-2024 Distended gallbladde r with suspected gallbladder wall edema concerning for acute cholecystitis. Distended stomach with air-fluid level may be related. Please correlate clinically. Follow-up recommended. CTR Dr Woodall. Report Dictated on Electronically Signed By: Javy Urias MD Electronically Signed Date/Time: 10/18/2024 7:12 PM EST [facility] [employer] Patient Name: WILL ALVARADO : 1965 [...] adenopathy. No definite aneurysm. No spinal compression. [facility] Javy Urias MD - 10/18/2024 Patient Name: [...] MD Electronically Signed Date/Time: 10/18/2024 7:12 PM [facility] Radiology Study observation (narrative) [facility] CTA Chest vessels WO and W c ontrast Erica 10-18-2024 Impression:Very limi laura due to motion.. Consider repeat exam or VQ scan for persistent symptoms. Note made of distended stomach with air-fluid level. Report Dictated on Electronically Signed By: Javy Urias MD Electronically Signed Date/Time: 10/18/2024 7:05 PM [facility] [employer] SYSTEM Patient Name: WILL ALVARADO : 1965 [...] Distended stomach with air-fluid level. Significance uncertain.. [facility] [employer] [facility] Javy Urias MD - 10/18/2024 Patient Name: WILL JACINTO : [address] [facility]#: [id number] Exam Date/Time: 10/18/2024 17:20 Procedure: CT CHEST [...] Electronically Signed Date/Time: 10/18/2024 7:05 PM EST [facility] rocket staff Radiology Study observation (narrative) [employer] rocket staff CTA Chest vessels WO and W c ontrast IVOrdered By: Javy Urias on 10-18-2024 [employer] Work Phone: Comprehensive metabolic 1998 panelon 10-18-2024 Albumin [Mass/Vol] 3 g/dL Low 3.5 - 5.0 g/dL [employer] rocket staff ALP [Catalytic activity/Vol] 133 U/L [employer] rocket staff ALT [Catalytic activity/Vol] 67 U/L [employer] rocket staff Anion gap [Moles/Vol] 13 mmol/L 3 - 13 mmol/L [facility] rocket staff AST [Catalytic activity/Vol] 50 U/L High NINF - 34 U/L [facility] Bilirubin [Mass/Vol] 0.7 mg/dL NINF - 1.2 mg/dL [facility] Calcium [Mass/Vol] 9 mg/dL 8.4 - 10. 2 mg/dL [facility] Chloride [Moles/Vol] 103 mmol/L 98 - 10 7 mmol/L [facility] CO2 [Moles/Vol] 21 mmol/L Low 22 - 29 mmol/L [facility] Creatinine [Mass/Vol] 1.16 mg/dL [facility] GFR/1.73 sq M.predicted (S/P/Bld) [Vol rate/Area] 55.1 mL/min Low - PINF [facility] Comment on above: Calculation based on the Chronic Kidney Disease Epidemiology Collaboration (CKD-EPI) equation refit without adjustment for race Glucose [Mass/Vol] 226 mg/dL High 74 - 100 mg/dL [facility] Interpretation and review of laboratory results Abnormal [facility] Potassium [Moles/Vol] 4.1 mmol/L 3.5 - 5.1 mmol/L [facility] Comment on above: Plasma potassium helen ues may be up to 0.5 mmol/L lower than serum values. Protein [Mass/Vol] 6.7 g/dL 6.4 - 8.3 g/dL [facility] Sodium [Moles/Vol] 137 mmol/L 136 - 145 mmol/L [facility] Urea nitrogen [Mass/Vol] 24 mg/dL High 9 - 23 mg/dL [facility] ECG 12-LEADon 10-18-2024 ECG 12-LEAD IMPRESSION: Sinus rhythm Left ventricular hypertrophy Anterior Q waves, possibly due to LVH Electronically Signed On 10-18-2024 23:06:53 EST by Sunitha Borja Normal [facility] ED Nursing Noteon 10-18-2024 ED Nursing Note EKG at bedside Normal [facility] ED Nursing Note EKG called Normal [facility] ED Nursing Note Pt presents to er [facility]. Pt presents with abd pain, diarrhea, chest pain. Pt presents aox4 speaking in full and complete sentences. Normal [facility] ED Provider Noteon ED Provider Note Normal [facility] HIGH SENSITIVITY TROPONIN, S ERIAL BASELINEon 10-18-2024 TROPONIN HIGH SENSITIVITY BASELINE <3 Normal [facility] Comment on above: Performed By: #### L AB17, LAB99, [id number] ####Magazine Journalist: KEMAR ABEBE ([phone])[facility] CENTERWarren AB[facility]AMPUSKATIA ([facility])[address] HIGH SENSITIVITY TROPONIN, S ERIAL, SECOND TESTon 10-18-2024 TROPONIN HS DELTA, BASELINE TO SECOND Normal [facility] Comment on above: Result Comment: A [...] further clinical guidance. Performed By: #### L [id number] ####Magazine Journalist: KEMAR ABEBE ([id number])[facility] CENTERWarren [facility]ENTERJermaine ([facility])[address] TROPONIN HS, SERIAL REFLEX, TEST TWO <3 Normal [facility] Comment on above: Performed By: #### L [id number] ####Magazine Journalist: KEMAR ABEBE ([phone])[facility] ([facility])[address] LACTIC ACID WITH REFLEXon Lactate [Moles/Vol] 0.8 mmol/L Normal 0.5-2.2 [facility] Comment on above: Performed By: #### L [id number] ####Magazine Journalist: KEMAR ABEBE ([phone])[facility] CENTERWarren [facility]USKATIA ([facility])[address] Lactate [Moles/Vol] 2.2 mmol/L Normal 0.5-2.2 [facility] Comment on above: Performed By: #### L [id number] ####Magazine Journalist: KEMAR ABEBE ([phone])[facility] CENTERWarren TY[place] ([facility])[address] LIPASEon 10-18-2024 Lipase [Catalytic activity/Vol] 6 U/L Normal <55 [facility] Comment on above: Performed By: #### L AB17, LAB99, [id number] ####Magazine Journalist: KEMAR ABEBE ([phone])[facility] (SBHLAB)[address] Laboratory - Chemistry and C hemistry - challengeon 10-18-2024 Lactate [Moles/Vol] 0.8 mmol/L 0.5 - 2. 2 mmol/L [facility] Glucose [Mass/Vol] 136 mg/dL High 70 - 100 mg/dL [facility] Lactate [Moles/Vol] 2.2 mmol/L 0.5 - 2. 2 mmol/L [facility] Lipase [Catalytic activity/Vol] 6 U/L NINF - 55 U/L [facility] Lipase [Catalytic activity/V ol]on 10-18-2024 Interpretation and review of laboratory results Normal [facility] MANUAL DIFFERENTIALon 2023 BAND NEUTROPHILS TOTAL PER COUNTED LEUKOCYTES BY MANUAL COUNT 7 Normal [facility] Comment on above: Performed By: #### L [id number], [id number] ####Magazine Journalist: KEMAR AEBBE ([id number])[facility] (SBAB)[address] BANDS 0.9 10*3/uL High <=0.0 [facility] Comment on above: Performed By: #### L [id number], [id number] ####Magazine Journalist: KEMAR ABEBE ([id number])[facility] ([facility])[address] CELLS COUNTED TOTAL (#) IN BLOOD 200 Normal [facility] Comment on above: Performed By: #### L [id number], [id number] ####Magazine Journalist: KEMAR ABEBE ([phone])[facility] ([facility])[address] LEUKOCYTE MORPHOLOGY FINDING IN BLOOD Normal Normal [facility] Comment on above: Performed By: #### L [id number], [id number] ####Magazine Journalist: KEMAR ABEBE ([phone])[facility] (SB[facility])[address] [place] [address] [place] LEUKOCYTES (10*3/UL) NUCLEATED ERYTHROCYTE ADJUST 25.9 10*3/uL High 3.6-10.7 [facility] Comment on above: Performed By: #### L [id number], [id number] ####Magazine Journalist: KEMAR ANDRAE ([phone])[facility] ([facility])[address] [place] [address] [place] LYMPHOCYTES (10*3/UL) IN BLOOD BY MANUAL COUNT 0.4 10*3/uL Low 1.0-4.3 [facility] Comment on above: Performed By: #### L [id number], [id number] ####Magazine Journalist: KEMAR ABEBE ([id number])[facility] (SBHL[facility])[address] LYMPHOCYTES TOTAL PER COUNTED LEUKOCYTES BY MANUAL COUNT 3 Normal [facility] Comment on above: Performed By: #### L [id number], [id number] ####Magazine Journalist: KEMAR LUDWIGSAAD ([id number])[facility] ([facility])[address] [place] [address] [place] LYMPHOCYTES VARIANT/100 LEUKOCYTES IN BLOOD 3 % High <=0 [facility] Comment on above: Performed By: #### L [id number], [id number] ####Magazine Journalist: KEMAR ABEBE ([phone])[facility] ([facility])[address] [place] [address] [place] LYMPHOCYTES/100 LEUKOCYTES IN BLOOD BY MANUAL COUNT 2 % Low 15-45 [facility] Comment on above: Performed By: #### L [id number], [id number] ####Magazine Journalist: KEMAR ABEBE ([phone])[facility] ([facility])[address] [place] [address] [place] METAMYELOCYTES (10*3/UL) IN BLOOD BY MANUAL COUNT 0.1 10*3/uL High <=0.0 [facility] Comment on above: Performed By: #### L [id number], [id number] ####Magazine Journalist: KEMAR ANDRAE ([phone])[facility] [place] ([facility])[address] [place] [address] [place] METAMYELOCYTES TOTAL PER COUNTED LEUKOCYTES BY MANUAL COUNT 1 Normal [facility] Comment on above: Performed By: #### L [id number], [id number] ####Magazine Journalist: KEMAR ANDRAE ([phone])[facility] [place] ([facility])[address] [place] [address] [place] METAMYELOCYTES/100 LEUKOCYTES IN BLOOD BY MANUAL COUNT 1 % High <=0 [facility] Comment on above: Performed By: #### L [id number], [id number] ####Magazine Journalist: KEMAR ANDRAE ([id number])[facility] [place] ([facility])[address] [place] [address] [place] MONOCYTES (10*3/UL) IN BLOOD BY MANUAL COUNT 1.4 10*3/uL High 0.0-0.9 [facility] Comment on above: Performed By: #### L [id number], [id number] ####Magazine Journalist: KEMAR MOMINHARRISON ([phone])[facility] [place] ([facility])[address] [place] [address] [place] MONOCYTES TOTAL PER COUNTED LEUKOCYTES BY MANUAL COUNT 11 Normal [facility] Comment on above: Performed By: #### L [id number], [id number] ####Magazine Journalist: KEMAR MOMINHARRISON ([phone])[facility] [place] ([facility])[address] [place] [address] [place] MONOCYTES/100 LEUKOCYTES IN BLOOD BY MANUAL COUNT 6 % Normal 5-13 [facility] Comment on above: Performed By: #### L [id number], [id number] ####Magazine Journalist: KEMAR MOMINHARRISON ([id number])[facility] [place] ([facility])[address] [place] [address] [place] NEUTROPHILS (SEGS+BANDS) (10*3/UL) BY MANUAL COUNT 23.2 10*3/uL High 1.8-7.0 [facility] Comment on above: Performed By: #### L [id number], [id number] ####Magazine Journalist: KEMAR ABEBE ([id number])[facility] ([facility])[address] [place] [address] [place] NEUTROPHILS BAND FORM/100 LEUKOCYTES IN BLOOD BY MANUAL COUNT 4 % High <=0 [facility] Comment on above: Performed By: #### L [id number], [id number] ####Magazine Journalist: KEMAR ABEBE ([id number])[facility] ([facility])[address] [place] [address] [place] NEUTROPHILS TOTAL PER COUNTED LEUKOCYTES BY MANUAL COUNT 172 Normal [facility] Comment on above: Performed By: #### L [id number], [id number] ####Magazine Journalist: KEMAR ABEBE ([phone])[facility] [place] ([facility])[address] [place] [address] [place] PLATELET MORPHOLOGY IN BLOOD Normal Normal [facility] Comment on above: Performed By: #### L [id number], [id number] ####Magazine Journalist: KEMAR ABEBE ([phone])[facility] [place] ([facility])[address] [place] [address] [place] RBC MORPHOLOGY IN BLOOD Normal Normal [facility] Comment on above: Performed By: #### L [id number], [id number] ####Magazine Journalist: KEMAR ABEBE ([phone])[facility] [place] ([facility])[address] [place] [address] [place] SEGEMENTED NEUTROPHILS/100 LEUKOCYTES BY MANUAL COUNT 86 % High 38-82 [facility] Comment on above: Performed By: #### L [id number], [id number] ####Magazine Journalist: KEMAR ABEBE ([phone])[facility] [place] ([facility])[address] [place] [address] [place] SEGMENTED NEUTROPHILS (10*3/UL)IN BLOOD BY MANUAL COUNT 23.2 10*3/uL High 1.8-7.5 [facility] Comment on above: Performed By: #### L [id number], [id number] ####Magazine Journalist: KEMAR ABEBE ([id number])[facility] ([facility])[address] VARIANT LYMPHOCYTES (10*3/UL) IN BLOOD BY MANUAL COUNT 0.8 10*3/uL High <=0.0 [facility] Comment on above: Performed By: #### L [id number], [id number] ####Magazine Journalist: KEMAR ABEBE ([id number])[facility] ([facility])[address] VARIANT LYMPHOCYTES TOTAL PER COUNTED LEUKOCYTES BY MANUAL COUNT 6 Normal [facility] Comment on above: Performed By: #### L [id number], [id number] ####Magazine Journalist: KEMAR ABEBE ([id number])[facility] ([facility])[address] Manual differential performe d Ql (Bld)on 10-18-2024 Atypical Lymphocytes Manual 6 [facility] Band form neutrophils (Bld) [#/Vol] 0.9 10*3/uL High NINF - 0.0 10*3/uL [facility] Band form neutrophils/100 WBC (Bld) 4 % High NINF - 0 % [facility] Bands Manual 7 [facility] Cells Counted Total (Bld) [#] 200 {cells} [facility] Interpretation and review of laboratory results Abnormal [facility] Leukocyte morphology finding Nom (Bld) Normal [facility] Lymphocytes (Bld) [#/Vol] 0.4 10*3/uL Low 1.0 - 4.3 10*3/uL [facility] Lymphocytes Manual 3 [facility] Lymphocytes/100 WBC (Bld) 2 % Low 15 - 45 % [facility] Metamyelocytes (Bld) [#/Vol] 0.1 10*3/uL High NINF - 0.0 10*3/uL [facility] Metamyelocytes Manual 1 [facility] Metamyelocytes/100 WBC (Bld) 1 % High NINF - 0 % [facility] Monocytes (Bld) [#/Vol] 1.4 10*3/uL High 0.0 - 0.9 10*3/uL [facility] Monocytes Manual 11 [facility] Monocytes/100 WBC (Bld) 6 % 5 - 13 % [facility] Neutrophils (Bld) [#/Vol] 23.2 10*3/uL High 1.8 - 7.5 10*3/uL [facility] Neutrophils Manual 172 [facility] Platelet morphology finding Nom (Bld) Normal [facility] RBC morphology finding Nom (Bld) Normal [facility] Segmented neutrophils/100 WBC (Bld) 86 % High 38 - 82 % [facility] Variant lymphocytes (Bld) [#/Vol] 0.8 10*3/uL High NINF - 0.0 10*3/uL [facility] Variant lymphocytes/100 WBC (Bld) 3 % High NINF - 0 % [facility] WBC corrected for nucl RBC (Bld) [#/Vol] 25.9 10*3/uL High 3.6 - 10.7 10*3/uL [facility] No Panel Informationon 10-18 Interpretation and review of laboratory results Normal [facility] Sinus rhythm Left ventricular hypertrophy Anterior Q waves, possibly due to LVH Electronically Signed On 10-18-2024 23:06:53 EST by Sunitha Borja Sunitha Patel MD - 10/18/2024 IMPRESSION: Sinus rhythm Left ventricular hypertrophy Anterior Q waves, possibly due to LVH Electronically Signed On 10-18-2024 23:06:53 EST by Sunitha Borja [facility] Interpretation and review of laboratory results Abnormal [facility] Performed by: Nati Vigil [facility], [address] [place], [place] [id number] CLIA ID: [id number] [facility] Troponin HS Delta, Baseline to Second [facility] Comment on above: A troponin delta [...] guidance. Troponin HS, Serial Second ng/L ng/L [facility] Troponin HS, Serial Baseline ng/L ng/L [facility] Interpretation and review of laboratory results Normal [facility] [place] No Panel InformationOrdered By: Sunitha Borja on 10-18-2024 P [place] 68 degrees [employer] Phone: [phone] IN Interval 185 ms [employer] Work Phone: QRS [place] -37 degrees [employer] Work Phone: QRSD Interval 108 ms [employer] Phone: [phone] QT Interval 386 ms [employer] Phone: QTC Interval 489 ms [employer] Phone: [phone] T Wave [place] 47 degrees [employer] Phone: [employer] Phone: URINE CULTUREon 10-18-2024 Bacteria identified Cx Nom (U) Normal [facility] Fast [employer] [facility] Comment on above: Performed By: #### L [id number] ####Magazine Journalist: MARCELA LUCERO ([id number])[facility] (SACLAB)[address] [place] [address]#### [id number] ####Magazine Journalist: KEMAR ABEBE ([id number])[facility] (SBHLAB)[address] [place] [address] US ABDOMEN LIMITEDon 024 US ABDOMEN LIMITED Normal [facility] US Abdomen limitedon 024 1. Cholestasis, cholelithiasis, gallbladder wall thickening, with probable mural edema and trace pericholecystic fluid, as well as positive sonographic Caldwell's sign, suspicious for postinflammatory change, including acute cholecystitis. Clinical correlation and follow-up as indicated. Report Dictated on Electronically Signed By: Joel Haddad MD Electronically Signed Date/Time: 10/18/2024 8:21 PM [facility] [employer] Patient Name: WILL ALVARADO : 1965 Exam Date/Time: 10/18/2024 19:36 Procedure: [...] adequately visualized due to overlying bowel gas. [facility] Joel Haddad MD - 10/18/2024 [...] Electronically Signed Date/Time: 10/18/2024 8:21 PM EST [facility] Radiology Study observation (narrative) [facility] US Abdomen limitedOrdered By : Joel Haddad on 10-18-2024 [facility] [employer] Work Phone: Vital signsOrdered By: Sunitha Borja on 10-18-2024 Heart rate 96 /min bpm [facility] [employer] Work Phone: 36on 10-17-2024 36 [facility] nurse laney. I relayed the message below and she verbalized understanding. [facility] 36 A lot of varibility. Many of results are adequate, many high. No clear trend to change doses thank you [facility] 36on 10-16-2024 36 Patient's BGL Normal [facility] 36on 10-10-2024 36 Faxed recommendation to [facility]([phone]) Normal [facility] 36on 10-09-2024 36 Keep doses the same for now thank you Normal [facility] 36 Patient's BGL Normal [facility] 36on 10-04-2024 36 Patient's BGL Normal [facility] 36on 09-26-2024 36 Notified pt's nurse at his facilities. Normal [facility] 36on 09-25-2024 36 A lot of variability please keep doses the same thank you [facility] 36 Patient's BGL Normal [facility] Hemoglobin A1con 09-22-2024 HbA1c (Bld) [Mass fraction] 7.6 % High 3.8-5.6 [facility] Comment on above: Order Comment: SC CATHETER SPECIMEN Result Comment: Norm al < 5.7 % Prediabetic 5.7 - 6.4 % Diabetic >or= 6.5 % Please note range changes. Performed By: #### L 400.2010 #### [facility] [address] [place], [address] Hemoglobin A1c percentageOrd ered By: Jared Guzman on 09-22-2024 HbA1c (Bld) [Mass fraction] 7.6 % High 3.8-5.6 [facility] Comment on above: Normal < 5.7 % Predi abetic 5.7 - 6.4 % Diabetic >or= 6.5 % Please note range changes. 09-20-2024 36 Faxed recommendation to [facility]. Thank you! Normal [facility] 36on 09-19-2024 36 Very high doses with variability and history severe hypoglycemia- would not change doses for now Normal [facility] 36 Patient's BGL Normal [facility] 36on 09-13-2024 36 [facility] [phone] Normal [facility] CBC-Complete Blood Cnt No Di ffon 09-12-2024 Erythrocyte distribution width (RBC) [Ratio] 13.8 % Normal 11.6-14.6 [facility] Comment on above: Order Comment: 103-1 Performed By: #### L 100.0500, L500.4100, L500.4050 #### [facility] [address] [place], [address] Hematocrit (Bld) [Volume fraction] 35.2 % Low 37-47 [facility] Comment on above: Order Comment: 103-1 Performed By: #### L 100.0500, L500.4100, L500.4050 #### [facility] [address] [place], [address] Hemoglobin (Bld) [Mass/Vol] 11.3 g/dL Low 12.0-15.0 [facility] Comment on above: Order Comment: 103-1 Performed By: #### L 100.0500, L500.4100, L500.4050 #### [facility] [address] [place], [address] MCH (RBC) [Entitic mass] 27.8 pg Normal 27.0-32.0 [facility] Comment on above: Order Comment: 103-1 Performed By: #### L 100.0500, L500.4100, L500.4050 #### [facility] [address] [place], [address] MCHC (RBC) [Mass/Vol] 32.1 g/dL Normal 32-36 [facility] Comment on above: Order Comment: 103-1 Performed By: #### L 100.0500, L500.4100, L500.4050 #### [facility] [address] [place], [address] MCV (RBC) [Entitic vol] 86.7 fL Normal 81-99 [facility] Comment on above: Order Comment: 103-1 Performed By: #### L 100.0500, L500.4100, L500.4050 #### [facility] [address] [place], [address] Platelet mean volume (Bld) [Entitic vol] 10.2 fL Normal 6.2-12.0 [facility] Comment on above: Order Comment: 103-1 Performed By: #### L 100.0500, L500.4100, L500.4050 #### [facility] [address] [place], [address] Platelets (Bld) [#/Vol] 352 10*3/uL Normal 150-450 [facility] Comment on above: Order Comment: 103-1 Performed By: #### L 100.0500, L500.4100, L500.4050 #### [facility] [address] [place], [address] RBC (Bld) [#/Vol] 4.06 10*6/uL Low 4.2-5.4 [facility] Comment on above: Order Comment: 103-1 Performed By: #### L 100.0500, L500.4100, L500.4050 #### [facility] [address] [place], [address] RDW SD 43.5 fl Normal 35.1-43.9 [facility] Comment on above: Order Comment: 103-1 Performed By: #### L 100.0500, L500.4100, L500.4050 #### [facility] [address] [place], [address] WBC (Bld) [#/Vol] 8.5 10*3/uL Normal 4.4-11.0 [facility] Comment on above: Order Comment: 103-1 Performed By: #### L 100.0500, L500.4100, L500.4050 #### [facility] [address] [place], [address] 36on 09-11-2024 36 Keep doses the same for now thank you Normal [facility] 36 Patient's BGL Normal [facility] CBC-Complete Blood Cnt No Di ffon 09-11-2024 HCT Normal 37-47 [facility] Comment on above: Order Comment: 103.1 Result Comment: DID NOT GET PURPLE TOP Performed By: #### L 500.4050, L100.0500 #### [facility] [address] [place], [address] HGB Normal 12.0-15.0 [facility] Comment on above: Order Comment: 103.1 Result Comment: DID NOT GET PURPLE TOP Performed By: #### L 500.4050, L100.0500 #### [facility] [address] [place], [address] MCH Normal 27.0-32.0 [facility] Comment on above: Order Comment: 103.1 Result Comment: DID NOT GET PURPLE TOP Performed By: #### L 500.4050, L100.0500 #### [facility] [address] [place], [address] MCHC Normal 32-36 [facility] Comment on above: Order Comment: 103.1 Result Comment: DID NOT GET PURPLE TOP Performed By: #### L 500.4050, L100.0500 #### [facility] [address] [place], [address] MCV Normal 81-99 [facility] Comment on above: Order Comment: 103.1 Result Comment: DID NOT GET PURPLE TOP Performed By: #### L 500.4050, L100.0500 #### [facility] [address] [place], [address] PLT Normal 150-450 [facility] Comment on above: Order Comment: 103.1 Result Comment: DID NOT GET PURPLE TOP Performed By: #### L 500.4050, L100.0500 #### [facility] [address] [place], [address] RBC Normal 4.2-5.4 [facility] Comment on above: Order Comment: 103.1 Result Comment: DID NOT GET PURPLE TOP Performed By: #### L 500.4050, L100.0500 #### [facility] [address] [place], [address] RDW CV Normal 11.6-14.6 [facility] Comment on above: Order Comment: 103.1 Result Comment: DID NOT GET PURPLE TOP Performed By: #### L 500.4050, L100.0500 #### [facility] [address] [place], [address] RDW SD Normal 35.1-43.9 [facility] Comment on above: Order Comment: 103.1 Result Comment: DID NOT GET PURPLE TOP Performed By: #### L 500.4050, L100.0500 #### [facility] [address] [place], [address] WBC Normal 4.4-11.0 [facility] Comment on above: Order Comment: 103.1 Result Comment: DID NOT GET PURPLE TOP Performed By: #### L 500.4050, L100.0500 #### [facility] [address] [place], [address] Comprehensive Metabolic Prof ilon 09-11-2024 Albumin [Mass/Vol] 3.3 g/dL Normal 3.2-5.0 [facility] Comment on above: Order Comment: 103.1 Performed By: #### L 500.4050, L100.0500 #### [facility] [address] [place], [id number] Albumin/Globulin [Mass ratio] 1.0 {ratio} Normal 0.9-2.4 [facility] Comment on above: Order Comment: 103.1 Performed By: #### L 500.4050, L100.0500 #### [facility] [address] [place], [id number] ALK P 169 U/L High 45-117 [facility] Comment on above: Order Comment: 103.1 Performed By: #### L 500.4050, L100.0500 #### [facility] [address] [place], [id number] ALT [Catalytic activity/Vol] 30 U/L Normal 13-56 [facility] Comment on above: Order Comment: 103.1 Performed By: #### L 500.4050, L100.0500 #### [facility] [address] [place], [id number] AST [Catalytic activity/Vol] 15 U/L Normal 15-37 [facility] Comment on above: Order Comment: 103.1 Performed By: #### L 500.4050, L100.0500 #### [facility] [address] [place], [id number] Bilirubin [Mass/Vol] 0.40 mg/dL Normal 0.20-1.00 [facility] Comment on above: Order Comment: 103.1 Result Comment: For patients on eltrombopag therapy, use of Dimension [place] TBIL is not recommended. Performed By: #### L 500.4050, L100.0500 #### [facility] [address] [place], [address] BUN/CRE 17.4 RATIO Normal 10-20 [facility] Comment on above: Order Comment: 103.1 Performed By: #### L 500.4050, L100.0500 #### [facility] [address] [place], [address] CA,Total 8.9 mg/dL Normal 8.5-10.1 [facility] Comment on above: Order Comment: 103.1 Performed By: #### L 500.4050, L100.0500 #### [facility] [address] [place], [address] Chloride [Moles/Vol] 105 mmol/L Normal 98-107 [facility] Comment on above: Order Comment: 103.1 Performed By: #### L 500.4050, L100.0500 #### [facility] [address] [place], [address] CO2 [Moles/Vol] 27.0 mmol/L Normal 21.0-32.0 [facility] Comment on above: Order Comment: 103.1 Performed By: #### L 500.4050, L100.0500 #### [facility] [address] [place], [address] Creatinine [Mass/Vol] 0.86 mg/dL Normal 0.55-1.02 [facility] Comment on above: Order Comment: 103.1 Result Comment: The validity of the calculated GFR GFRAA in patients over 70 years has not been determined. Clinical correlation is essential. Performed By: #### L 500.4050, L100.0500 #### [facility] [address] [place], [address] EST GFR - AA 87 mL/min Normal >60 [facility] Comment on above: Order Comment: 103.1 Result Comment: Afri can Vincentian GFR Calc Performed By: #### L 500.4050, L100.0500 #### [facility] [address] [place], [address] GAP 7 Normal 5-15 [facility] Comment on above: Order Comment: 103.1 Performed By: #### L 500.4050, L100.0500 #### [facility] [address] [place], [address] GFR/1.73 sq M.predicted among non-blacks MDRD (S/P/Bld) [Vol rate/Area] 72 mL/min/{1.73_m2} Normal >60 [facility] Comment on above: Order Comment: 103.1 Result Comment: Non- GFR Calc Performed By: #### L 500.4050, L100.0500 #### [facility] [address] [place], [address] Globulin (S) [Mass/Vol] 3.4 g/dL Normal 2.2-4.2 [facility] Comment on above: Order Comment: 103.1 Performed By: #### L 500.4050, L100.0500 #### [facility] [address] [place], [address] Glucose [Mass/Vol] 283 mg/dL High 74-106 [facility] Comment on above: Order Comment: 103.1 Result Comment: Gluc ose result greater than or equal to 200 mg/dL suggests DIABETES MELLITUS per A.D.A. criteria. Performed By: #### L 500.4050, L100.0500 #### [facility] [address] [place], [place], [address] Potassium [Moles/Vol] 4.3 mmol/L Normal 3.5-5.1 [facility] Comment on above: Order Comment: 103.1 Performed By: #### L 500.4050, L100.0500 #### [facility] [address] [place], [address] Sodium [Moles/Vol] 139 mmol/L Normal 136-145 [facility] Comment on above: Order Comment: 103.1 Performed By: #### L 500.4050, L100.0500 #### [facility] [address] [place], [address] T PROT 6.7 g/dL Normal 6.4-8.2 [facility] Comment on above: Order Comment: 103.1 Performed By: #### L 500.4050, L100.0500 #### [facility] [address] [place], [address] Urea nitrogen [Mass/Vol] 15 mg/dL Normal 7-18 [facility] Comment on above: Order Comment: 103.1 Performed By: #### L 500.4050, L100.0500 #### [facility] [address] [place], [address] 36on 08-30-2024 36 Faxed recommendation to [facility]. Thank you! Normal [facility] 36on 08-29-2024 36 For now keep doses t he same thank you Normal [facility] 36 Patient's BGL Normal [facility] 36on 08-22-2024 36 Patient's B GL Normal [facility] 36on 08-09-2024 36 There's a more recen t BGL that you also advised no changes. I faxed over recommendation to [facility]. Thank you! Normal [facility] 36 Faxed recommendation to [facility]. Thank you! Normal [facility] 36on 08-08-2024 36 Somewhat improved; w ould not make any changes at this point thank you Normal [facility] 36 Patient's BGL Normal [facility] 36on 08-04-2024 36 Please keep doses th e same thank you Normal [facility] 36on 08-03-2024 36 Patient's BGL Normal [facility] Basic Metabolic Profile (BMP )on 08-02-2024 BUN/CRE 19.6 RATIO Normal 10-20 [facility] Comment on above: Performed By: #### L 100.0500, L500.4100, L500.4050 #### [facility] [address] [place], [address] CA,Total 9.3 mg/dL Normal 8.5-10.1 [facility] Comment on above: Performed By: #### L 100.0500, L500.4100, L500.4050 #### [facility] [address] [place], [address] Chloride [Moles/Vol] 105 mmol/L Normal 98-107 [facility] Comment on above: Performed By: #### L 100.0500, L500.4100, L500.4050 #### [facility] [address] [place], [address] CO2 [Moles/Vol] 25.0 mmol/L Normal 21.0-32.0 [facility] Comment on above: Performed By: #### L 100.0500, L500.4100, L500.4050 #### [facility] [address] [place], [address] Creatinine [Mass/Vol] 0.72 mg/dL Normal 0.55-1.02 [facility] Comment on above: Result Comment: The validity of the calculated GFR GFRAA in patients over 70 years has not been determined. Clinical correlation is essential. Performed By: #### L 100.0500, L500.4100, L500.4050 #### [facility] [address] [place], [address] EST GFR - AA 108 mL/min Normal >60 [facility] Comment on above: Result Comment: Afri can Vincentian GFR Calc Performed By: #### L 100.0500, L500.4100, L500.4050 #### [facility] [address] [place], [address] GAP 6 Normal 5-15 [facility] Comment on above: Performed By: #### L 100.0500, L500.4100, L500.4050 #### [facility] [address] [place], [address] GFR/1.73 sq M.predicted among non-blacks MDRD (S/P/Bld) [Vol rate/Area] 89 mL/min/{1.73_m2} Normal >60 [facility] Comment on above: Result Comment: Non- GFR Calc Performed By: #### L 100.0500, L500.4100, L500.4050 #### [facility] [address] [place], [address] Glucose [Mass/Vol] 207 mg/dL High 74-106 [facility] Comment on above: Result Comment: Gluc ose result greater than or equal to 200 mg/dL suggests DIABETES MELLITUS per A.D.A. criteria. Performed By: #### L 100.0500, L500.4100, L500.4050 #### [facility] [address] [place], [address] Potassium [Moles/Vol] 4.4 mmol/L Normal 3.5-5.1 [facility] Comment on above: Performed By: #### L 100.0500, L500.4100, L500.4050 #### [facility] [address] [place], [address] Sodium [Moles/Vol] 136 mmol/L Normal 136-145 [facility] Comment on above: Performed By: #### L 100.0500, L500.4100, L500.4050 #### [facility] [address] [place], [address] Urea nitrogen [Mass/Vol] 14 mg/dL Normal 7-18 [facility] Comment on above: Performed By: #### L 100.0500, L500.4100, L500.4050 #### [facility] [address] [place], [address] CBC-Complete Blood Cnt No Di ffon 08-02-2024 Erythrocyte distribution width (RBC) [Ratio] 14.1 % Normal 11.6-14.6 [facility] Comment on above: Performed By: #### L 100.0500, L500.4100, L500.4050 #### [facility] [address] [place], [address] Hematocrit (Bld) [Volume fraction] 35.6 % Low 37-47 [facility] Comment on above: Performed By: #### L 100.0500, L500.4100, L500.4050 #### [facility] [address] [place], [address] Hemoglobin (Bld) [Mass/Vol] 11.1 g/dL Low 12.0-15.0 [facility] Comment on above: Performed By: #### L 100.0500, L500.4100, L500.4050 #### [facility] [address] [place], [address] MCH (RBC) [Entitic mass] 27.2 pg Normal 27.0-32.0 [facility] Comment on above: Performed By: #### L 100.0500, L500.4100, L500.4050 #### [facility] [address] [place], [address] MCHC (RBC) [Mass/Vol] 31.2 g/dL Low 32-36 [facility] Comment on above: Performed By: #### L 100.0500, L500.4100, L500.4050 #### [facility] [address] [place], [address] MCV (RBC) [Entitic vol] 87.3 fL Normal 81-99 [facility] Comment on above: Performed By: #### L 100.0500, L500.4100, L500.4050 #### [facility] [address] [place], [address] Platelet mean volume (Bld) [Entitic vol] 10.8 fL Normal 6.2-12.0 [facility] Comment on above: Performed By: #### L 100.0500, L500.4100, L500.4050 #### [facility] [address] [place], [address] Platelets (Bld) [#/Vol] 323 10*3/uL Normal 150-450 [facility] Comment on above: Performed By: #### L 100.0500, L500.4100, L500.4050 #### [facility] [address] [place], [address] RBC (Bld) [#/Vol] 4.08 10*6/uL Low 4.2-5.4 [facility] Comment on above: Performed By: #### L 100.0500, L500.4100, L500.4050 #### [facility] [address] [place], [address] RDW SD 44.8 fl High 35.1-43.9 [facility] Comment on above: Performed By: #### L 100.0500, L500.4100, L500.4050 #### [facility] [address] [place], [address] WBC (Bld) [#/Vol] 8.8 10*3/uL Normal 4.4-11.0 [facility] Comment on above: Performed By: #### L 100.0500, L500.4100, L500.4050 #### [facility] [address] [place], [address] 36on 07-31-2024 36 Faxed recommendation to [facility]([phone]) [facility] 36on 07-28-2024 36 Please keep doses th e same thank you [facility] 36 Patient's recent BGL is below for your review. (07/20/24-07/24/24) Current DM regimen: Humulin R U500(130 units TID) Lantus (45 units BID) [facility] 36on 07-18-2024 36 Called [facility] and spoke with nurse. I relayed the message below and she verbalized understanding. [facility] 36 Increase lantus to 4 5 twice daily thank you [facility] 36 Patient is currently taking Humulin R U500(130 units TID) and lantus(30 units BID). [facility] 36on 07-17-2024 36 Please confirm curre nt u500 doses thank you [facility] 36 Patient's BGL Normal [facility] CBC-Complete Blood Cnt No Di ff07-17-2024 Erythrocyte distribution width (RBC) [Ratio] 13.9 % Normal 11.6-14.6 [facility] Comment on above: Order Comment: 103-1 Performed By: #### L 100.0500, L500.4100, L500.4050 #### [facility] [address] [place], [address] Hematocrit (Bld) [Volume fraction] 33.7 % Low 37-47 [facility] Comment on above: Order Comment: 103-1 Performed By: #### L 100.0500, L500.4100, L500.4050 #### [facility] [address] [place], [address] Hemoglobin (Bld) [Mass/Vol] 10.7 g/dL Low 12.0-15.0 [facility] Comment on above: Order Comment: 103-1 Performed By: #### L 100.0500, L500.4100, L500.4050 #### [facility] [address] [place], [address] MCH (RBC) [Entitic mass] 27.2 pg Normal 27.0-32.0 [facility] Comment on above: Order Comment: 103-1 Performed By: #### L 100.0500, L500.4100, L500.4050 #### [facility] [address] [place], [address] MCHC (RBC) [Mass/Vol] 31.8 g/dL Low 32-36 [facility] Comment on above: Order Comment: 103-1 Performed By: #### L 100.0500, L500.4100, L500.4050 #### [facility] [address] [place], [address] MCV (RBC) [Entitic vol] 85.5 fL Normal 81-99 [facility] Comment on above: Order Comment: 103-1 Performed By: #### L 100.0500, L500.4100, L500.4050 #### [facility] [address] [place], [address] Platelet mean volume (Bld) [Entitic vol] 10.3 fL Normal 6.2-12.0 [facility] Comment on above: Order Comment: 103-1 Performed By: #### L 100.0500, L500.4100, L500.4050 #### [facility] [address] [place], [address] Platelets (Bld) [#/Vol] 353 10*3/uL Normal 150-450 [facility] Comment on above: Order Comment: 103-1 Performed By: #### L 100.0500, L500.4100, L500.4050 #### [facility] [address] [place], [address] RBC (Bld) [#/Vol] 3.94 10*6/uL Low 4.2-5.4 [facility] Comment on above: Order Comment: 103-1 Performed By: #### L 100.0500, L500.4100, L500.4050 #### [facility] [address] [place], [address] RDW SD 43.3 fl Normal 35.1-43.9 [facility] Comment on above: Order Comment: 103-1 Performed By: #### L 100.0500, L500.4100, L500.4050 #### [facility] [address] [place], [address] WBC (Bld) [#/Vol] 8.0 10*3/uL Normal 4.4-11.0 [facility] Comment on above: Order Comment: 103-1 Performed By: #### L 100.0500, L500.4100, L500.4050 #### [facility] [address] [place], [address] Comprehensive Metabolic Prof [facility] 07-17-2024 Albumin [Mass/Vol] 2.9 g/dL Low 3.2-5.0 [facility] Comment on above: Order Comment: 103-1 Performed By: #### L 100.0500, L500.4100, L500.4050 #### [facility] [address] [place], [address] Albumin/Globulin [Mass ratio] 0.9 {ratio} Normal 0.9-2.4 [facility] Comment on above: Order Comment: 103-1 Performed By: #### L 100.0500, L500.4100, L500.4050 #### [facility] [address] [place], [address] ALK P 152 U/L High 45-117 [facility] Comment on above: Order Comment: 103-1 Performed By: #### L 100.0500, L500.4100, L500.4050 #### [facility] [address] [place], [address] ALT [Catalytic activity/Vol] 28 U/L Normal 13-56 [facility] Comment on above: Order Comment: 103-1 Performed By: #### L 100.0500, L500.4100, L500.4050 #### [facility] [address] [place], [address] AST [Catalytic activity/Vol] 14 U/L Low 15-37 [facility] Comment on above: Order Comment: 103-1 Performed By: #### L 100.0500, L500.4100, L500.4050 #### [facility] [address] [place], [address] Bilirubin [Mass/Vol] 0.30 mg/dL Normal 0.20-1.00 [facility] Comment on above: Order Comment: 103-1 Result Comment: For patients on eltrombopag therapy, use of Dimension [place] TBIL is not recommended. Performed By: #### L 100.0500, L500.4100, L500.4050 #### [facility] [address] [place], [address] BUN/CRE 21.4 RATIO High 10-20 [facility] Comment on above: Order Comment: 103-1 Performed By: #### L 100.0500, L500.4100, L500.4050 #### [facility] [address] [place], [address] CA,Total 9.1 mg/dL Normal 8.5-10.1 [facility] Comment on above: Order Comment: 103-1 Performed By: #### L 100.0500, L500.4100, L500.4050 #### [facility] [address] [place], [address] Chloride [Moles/Vol] 104 mmol/L Normal 98-107 [facility] Comment on above: Order Comment: 103-1 Performed By: #### L 100.0500, L500.4100, L500.4050 #### [facility] [address] [place], [address] CO2 [Moles/Vol] 27.0 mmol/L Normal 21.0-32.0 [facility] Comment on above: Order Comment: 103-1 Performed By: #### L 100.0500, L500.4100, L500.4050 #### [facility] [address] [place], [address] Creatinine [Mass/Vol] 0.56 mg/dL Normal 0.55-1.02 [facility] Comment on above: Order Comment: 103- Result Comment: The validity of the calculated GFR GFRAA in patients over 70 years has not been determined. Clinical correlation is essential. Performed By: #### L 100.0500, L500.4100, L500.4050 #### [facility] [address] [place], [address] EST GFR - AA 143 mL/min Normal >60 [facility] Comment on above: Order Comment: - Result Comment: Afri can Vincentian GFR Calc Performed By: #### L 100.0500, L500.4100, L500.4050 #### [facility] [address] [place], [address] GAP 7 Normal 5-15 [facility] Comment on above: Order Comment: - Performed By: #### L 100.0500, L500.4100, L500.4050 #### [facility] [address] [place], [address] GFR/1.73 sq M.predicted among non-blacks MDRD (S/P/Bld) [Vol rate/Area] 118 mL/min/{1.73_m2} Normal >60 [facility] Comment on above: Order Comment: 103-1 Result Comment: Non- GFR Calc Performed By: #### L 100.0500, L500.4100, L500.4050 #### [facility] [address] [place], [address] Globulin (S) [Mass/Vol] 3.4 g/dL Normal 2.2-4.2 [facility] Comment on above: Order Comment: 103-1 Performed By: #### L 100.0500, L500.4100, L500.4050 #### [facility] [address] [place], [address] Glucose [Mass/Vol] 175 mg/dL High 74-106 [facility] Comment on above: Order Comment: 103-1 Result Comment: Fast ing Glucose result greater than or equal to 126 mg/dL suggests DIABETES MELLITUS per A.D.A. criteria. Performed By: #### L 100.0500, L500.4100, L500.4050 #### [facility] [address] [place], [address] Potassium [Moles/Vol] 3.8 mmol/L Normal 3.5-5.1 [facility] Comment on above: Order Comment: 103-1 Performed By: #### L 100.0500, L500.4100, L500.4050 #### [facility] [address] [place], [address] Sodium [Moles/Vol] 138 mmol/L Normal 136-145 [facility] Comment on above: Order Comment: 103-1 Performed By: #### L 100.0500, L500.4100, L500.4050 #### [facility] [address] [place], [address] T PROT 6.3 g/dL Low 6.4-8.2 [facility] Comment on above: Order Comment: 103-1 Performed By: #### L 100.0500, L500.4100, L500.4050 #### [facility] [address] [place], [address] Urea nitrogen [Mass/Vol] 12 mg/dL Normal 7-18 [facility] Comment on above: Order Comment: 103-1 Performed By: #### L 100.0500, L500.4100, L500.4050 #### [facility] [address] [place], [address] Lipid Profileon 07-17-2024 Cholesterol [Mass/Vol] 146 mg/dL Normal 200 [facility] Comment on above: Order Comment: 103-1 Result Comment: <200 mg/dL Desirable 200-240 mg/dL Borderline >240 mg/dL High Risk Performed By: #### L 100.0500, L500.4100, L500.4050 #### [facility] [address] [place], [address] Cholesterol in HDL [Mass/Vol] 39 mg/dL Low [facility] Comment on above: Order Comment: Result Comment: The drugs N-Acetylcysteine and Metamizole may falsely depress this assay. Reference Range HDL <40 mg/dL Low HDL Cholesterol HDL >or= 60 mg/dL High HDL Cholesterol Performed By: #### L 100.0500, L500.4100, L500.4050 #### [facility] [address] [place], [address] Cholesterol in LDL [Mass/Vol] 83 mg/dL Normal 0-130 [facility] Comment on above: Order Comment: 103-1 Performed By: #### L 100.0500, L500.4100, L500.4050 #### [facility] [address] [place], [address] Cholesterol in VLDL [Mass/Vol] 24 mg/dL Normal 5-40 [facility] Comment on above: Order Comment: 103-1 Performed By: #### L 100.0500, L500.4100, L500.4050 #### [facility] [address] [place], [address] Triglyceride [Mass/Vol] 122 mg/dL Normal [facility] Comment on above: Order Comment: 103-1 Result Comment: The drugs N-Acetylcysteine and Metamizole may falsely depress this assay. Serum Triglycerides Reference Interval Normal <150 mg/dL Borderline high 150 - 199 mg/dL High 200 - 499 mg/dL Very High > or = 500 mg/dL Performed By: #### L 100.0500, L500.4100, L500.4050 #### [facility] [address] [place], [address] Laboratory - Chemistry and C hemistry - challengeon 01-27-2024 Glucose [Mass/Vol] 143 mg/dL High 70 - 100 mg/dL [facility] rocket staff No Panel Informationon 01-26 Interpretation and review of laboratory results Abnormal [facility] Performed by: [facility], [address] [place] [id number] CLIA ID: [id number] [facility] Radiology Study observation (narrative) [facility] Laboratory - Chemistry and C hemistry - challengeon 01-26-2024 Glucose [Mass/Vol] 101 mg/dL High 70 - 100 mg/dL [facility] Glucose [Mass/Vol] 111 mg/dL High 70 - 100 mg/dL [facility] Glucose [Mass/Vol] 102 mg/dL High 70 - 100 mg/dL [facility] No Panel Informationon 01-25 Interpretation and review of laboratory results Abnormal [facility] Performed by: [facility], [address] [place] [id number] CLIA ID: [id number] [facility] Interpretation and review of laboratory results Abnormal [facility] Performed by: [facility], [address] [place] [id number] CLIA ID: [id number] [facility] Interpretation and review of laboratory results Abnormal [facility] Performed by: [facility], [address] [place] [id number] CLIA ID: [id number] [facility] Radiology Study observation (narrative) [facility] Radiology Study observation (narrative) [facility] Radiology Study observation (narrative) [facility] CBC W Auto Differential pane l (Bld)on 01-22-2024 Basophils (Bld) [#/Vol] 0.1 10*3/uL 0.0 - 0.2 10*3/uL [facility] Basophils/100 WBC (Bld) 0.5 % 0.0 - 2.0 % [facility] Eosinophils (Bld) [#/Vol] 0.1 10*3/uL 0.0 - 0.5 10*3/uL [facility] Eosinophils/100 WBC (Bld) 0.8 % 0.0 - 6.0 % [facility] Erythrocyte distribution width (RBC) [Ratio] 14.3 % 11.5 - 15.0 % [facility] Hematocrit (Bld) [Volume fraction] 35.6 % Male: 40.0-52.0 ; Female: 35.0-47.0 [facility] Hemoglobin (Bld) [Mass/Vol] 11.3 g/dL Low 11.7 - 18.0 g/dL [facility] Immature granulocytes (Bld) [#/Vol] 0.1 10*3/uL High NINF - 0.1 10*3/uL [facility] Immature granulocytes/100 WBC (Bld) 0.7 % 0.0 - 2.0 % [facility] Interpretation and review of laboratory results Abnormal [facility] Lymphocytes (Bld) [#/Vol] 1.4 10*3/uL 1.0 - 4.3 10*3/uL [facility] Lymphocytes/100 WBC (Bld) 14.3 % Low 15.0 - 45.0 % [facility] MCH (RBC) [Entitic mass] 27.5 pg 26.0 - 34.0 pg [facility] MCHC (RBC) [Mass/Vol] 31.7 % 30.5 - 36.0 % [facility] [facility] MCV (RBC) [Entitic vol] 86.6 fL 77.0 - 99.0 fL [facility] Monocytes (Bld) [#/Vol] 0.6 10*3/uL 0.0 - 0.9 10*3/uL [facility] Monocytes/100 WBC (Bld) 5.9 % 5.0 - 13.0 % [facility] Neutrophils (Bld) [#/Vol] 7.8 10*3/uL High 1.8 - 7.5 10*3/uL [facility] Neutrophils/100 WBC (Bld) 77.8 % 38.0 - 82.0 % [employer] Nucleated RBC/100 WBC (Bld) [Ratio] 0.0 % [employer] Platelet mean volume (Bld) [Entitic vol] 10.3 fL 9.0 - 12.7 fL [employer] Platelets (Bld) [#/Vol] 511 10*3/uL High 140 - 440 10*3/uL [employer] rocket staff RBC (Bld) [#/Vol] 4.11 10*6/uL Male: 4.40-5.90; Female: 3.80-5.20 [employer] WBC (Bld) [#/Vol] 10.0 10*3/uL 3.6 - 10.7 10*3/uL [employer] [place] CT Abdomen and Pelvis W cont rast [...] MD Electronically Signed Date/Time: 01/22/2024 4:54 AM [facility] [employer] [facility] 1965 [id number] Exam Date/Time: 01/22/2024 04:15 Procedure: CT ABDOMEN [...] No evidence of acute fracture or dislocation. [facility] Brandon Morgan MD - 01/22/2024 [...] Electronically Signed Date/Time: 01/22/2024 4:54 AM EDT [facility] Radiology Study observation (narrative) [employer] rocket staff CT Abdomen and Pelvis W cont rast IVOrdered By: Brandon Morgan on 01-22-2024 [employer] rocket staff Work Phone: Comprehensive metabolic 1998 panelon 01-22-2024 Albumin [Mass/Vol] 4.2 g/dL 3.5 - 5.0 g/dL [facility] [employer] staff ALP [Catalytic activity/Vol] 121 U/L 38 - 126 U/L [facility] [employer] staff ALT [Catalytic activity/Vol] 32 U/L Male: 0-49 U/L; Female: 0-34 U/L [facility] [employer] staff Anion gap [Moles/Vol] 11 mmol/L 3 - 13 mmol/L [facility] [employer] staff AST [Catalytic activity/Vol] 26 U/L 15 - 46 U/L [facility] [employer] Bilirubin [Mass/Vol] 0.5 mg/dL 0.2 - 1 .3 mg/dL [facility] [employer] staff Calcium [Mass/Vol] 9.6 mg/dL 8.4 - 10. 4 mg/dL [facility] [employer] Chloride [Moles/Vol] 100 mmol/L 98 - 10 7 mmol/L [facility] rocket staff CO2 [Moles/Vol] 25 mmol/L 22 - 30 mmol/L [facility] [employer] staff Creatinine [Mass/Vol] 0.61 mg/dL Male: 0.66-1.25 mg/dL; Female: 0.52-1.04 mg/dL [facility] rocket staff GFR/1.73 sq M.predicted MDRD (S/P/Bld) [Vol rate/Area] - PINF [facility] Comment on above: Calculation based on the Chronic Kidney Disease Epidemiology Collaboration (CKD-EPI) equation refit without adjustment for race Glucose [Mass/Vol] 81 mg/dL 70 - 100 mg/dL [facility] [employer] staff Potassium [Moles/Vol] 4.0 mmol/L 3.5 - 5.1 mmol/L [facility] [employer] staff Protein [Mass/Vol] 7.5 g/dL 6.3 - 8.2 g/dL [facility] Sodium [Moles/Vol] 136 mmol/L 135 - 145 mmol/L [facility] Urea nitrogen [Mass/Vol] 13 mg/dL Male: 9-20 mg/dL; Female: 7-17 mg/dL [facility] Laboratory - Chemistry and C hemistry - challengeon 01-22-2024 Lactate [Moles/Vol] 0.7 mmol/L 0.7 - 2. 0 mmol/L [facility] Lipase [Catalytic activity/Vol] 41 U/L 23 - 300 U/L [facility] Lipase [Catalytic activity/V ol]on 01-22-2024 Interpretation and review of laboratory results Normal [facility] No Panel Informationon 01-21 Interpretation and review of laboratory results Normal [facility] [facility] [place] Urinal[place] complete panel (U )Ordered By: Erickson Olmedo on 01-22-2024 Bacteria LM.HPF (Urine sed) [#/Area] Few Abnormal Negative /HPF [facility] Bilirubin Ql (U) Negative Negative mg/dL [facility] Clarity (U) Clear Clear [facility] Color (U) Light Yellow Lt. Yellow [facility] Epithelial cells.squamous LM.HPF (Urine sed) [#/Area] 0-2 [facility] Glucose Ql (U) Normal Normal (<70) mg/dL [facility] Hemoglobin Ql (U) 1.0 mg/dL Abnormal Negative [facility] Interpretation and review of laboratory results Abnormal [facility] Ketones (U) [Mass/Vol] Negative Negat bernard mg/dL [facility] Leukocyte esterase Test strip Ql (U) 75 Abnormal Negative Kat/uL [facility] Mucus LM.HPF (Urine sed) [#/Area] Few Negative /LPF [facility] Nitrite Ql (U) Negative Negative [facility] pH (U) 8.0 [pH] 5.0 - 8.0 pH [facility] Protein (U) [Mass/Vol] 100 mg/dL Abnormal Negative [facility] RBC LM.HPF (Urine sed) [#/Area] 26-50 Abnormal [facility] Specific gravity (U) [Rel density] 1.013 1.005 - 1.030 [facility] Urobilinogen (U) [Mass/Vol] Normal Normal (0-1) mg/dL [facility] WBC LM.HPF (Urine sed) [#/Area] 6-10 Abnormal [facility] Basophil percentageOrdered B y: Jared Guzman on 01-20-2024 Chloride [Moles/Vol] 104 mmol/L 98-107 [facility] Glucose [Mass/Vol] 159 mg/dL 74-106 [facility] Comment on above: Fasting Glucose resu lt greater than or equal to 126 mg/dL suggests DIABETES MELLITUS per A.D.A. criteria. Hemoglobin (Bld) [Mass/Vol] 9.6 g/dL 12.0-15.0 [facility] Potassium [Moles/Vol] 4.2 mmol/L 3.5-5.1 [facility] Sodium [Moles/Vol] 137 mmol/L 136-145 [facility] WBC (Bld) [#/Vol] 7.7 10*3/uL 4.4-11.0 [facility] Determination of erythrocyte mean corpuscular volume (MCV)Ordered By: Jared Guzman on 01-20-2024 MCV (RBC) [Entitic vol] 88.3 fL 81-99 [facility] Erythrocyte distribution wid th ratioOrdered By: Jared Guzman on 01-20-2024 Erythrocyte distribution width (RBC) [Ratio] 14.5 % 11.6-14.6 [facility] Erythrocyte distribution wid th standard deviationOrdered By: Jared Guzman on 01-20-2024 Erythrocyte distribution width (RBC) [Entitic vol] 46.4 fL 35.1-43.9 [facility] Hematocrit Auto (Bld) [Volum e fraction]Ordered By: Jared Guzman on 01-20-2024 Hematocrit (Bld) [Volume fraction] 30.9 % 37-47 [facility] Laboratory - Chemistry and C hemistry - challengeOrdered By: Jared Guzman on 01-20-2024 CO2 [Moles/Vol] 26.0 mmol/L 21.0-32.0 [facility] Urea nitrogen/Creatinine [Mass ratio] 17.5 mg/mg 10-20 [facility] Laboratory - Hematology and Cell countsOrdered By: Jared Guzman on 01-20-2024 MCH (RBC) [Entitic mass] 27.4 pg 27.0-32.0 [facility] MCHC (RBC) [Mass/Vol] 31.1 g/dL 32-36 [facility] Platelet mean volume (Bld) [Entitic vol] 10.0 fL 6.2-12.0 [facility] Platelets (Bld) [#/Vol] 411 10*3/uL 150-450 [facility] No Panel InformationOrdered By: Jared Guzman on 01-20-2024 Estimated GFR (MDRD) Amer 95 mL/min >60 [facility] Comment on above: GFR Calc Estimated GFR (MDRD) Non-Af Amer 78 mL/min >60 [facility] Comment on above: Non- GFR Calc RBC Auto (Bld) [#/Vol]Ordere d By: Jared Guzman on 01-20-2024 RBC (Bld) [#/Vol] 3.50 10*6/uL 4.2-5.4 [facility] Serum or plasma calcium mauricio urement (mass/volume)Ordered By: Jared Guzman on 01-20-2024 Calcium [Mass/Vol] 8.8 mg/dL 8.5-10.1 [facility] Serum or plasma creatinine m easurement (mass/volume)Ordered By: Jared Guzman on 01-20-2024 Creatinine [Mass/Vol] 0.80 mg/dL 0.55-1.02 [facility] Comment on above: The validity of the calculated GFR & GFRAA in patients over 70 years has not been determined. Clinical correlation is essential. Serum or plasma urea nitroge n measurement (mass/volume)Ordered By: Jared Guzman on 01-20-2024 Urea nitrogen [Mass/Vol] 14 mg/dL 7-18 [facility] Thin prep Papanicolaou smear with manual screeningOrdered By: Jared Guzman on 01-20-2024 Thin prep Papanicolaou smear with manual screening 7 5-15 [facility] Basophil percentageOrdered B y: Jared Guzman on 01-17-2024 Bilirubin [Mass/Vol] 0.50 mg/dL 0.20-1.00 [facility] Comment on above: For patients on eltr ombopag therapy, use of Dimension [place] TBIL is not recommended. Chloride [Moles/Vol] 102 mmol/L 98-107 [facility] Glucose [Mass/Vol] 325 mg/dL 74-106 [facility] Comment on above: Glucose result great er than or equal to 200 mg/dLsuggests DIABETES MELLITUS per A.D.A. criteria. Hemoglobin (Bld) [Mass/Vol] 9.7 g/dL 12.0-15.0 [facility] Potassium [Moles/Vol] 4.4 mmol/L 3.5-5.1 [facility] Protein [Mass/Vol] 6.2 g/dL 6.4-8.2 [facility] Sodium [Moles/Vol] 134 mmol/L 136-145 [facility] WBC (Bld) [#/Vol] 7.1 10*3/uL 4.4-11.0 [facility] Determination of erythrocyte mean corpuscular volume (MCV)Ordered By: Jared Guzman on 01-17-2024 MCV (RBC) [Entitic vol] 88.0 fL 81-99 [facility] Erythrocyte distribution wid th ratioOrdered By: Jared Guzman on 01-17-2024 Erythrocyte distribution width (RBC) [Ratio] 14.2 % 11.6-14.6 [facility] Erythrocyte distribution wid th standard deviationOrdered By: Jared Guzman on 01-17-2024 Erythrocyte distribution width (RBC) [Entitic vol] 45.7 fL 35.1-43.9 [facility] Hematocrit Auto (Bld) [Volum e fraction]Ordered By: Jared Guzman on 01-17-2024 Hematocrit (Bld) [Volume fraction] 31.5 % 37-47 [facility] Laboratory - Chemistry and C hemistry - challengeOrdered By: Jared Guzman on 01-17-2024 Albumin/Globulin [Mass ratio] 0.9 {ratio} 0.9-2.4 [facility] ALP [Catalytic activity/Vol] 142 U/L 45-117 [facility] ALT [Catalytic activity/Vol] 22 U/L 13-56 [facility] CO2 [Moles/Vol] 24.0 mmol/L 21.0-32.0 [facility] Globulin (S) [Mass/Vol] 3.3 g/dL 2.2-4.2 [facility] Urea nitrogen/Creatinine [Mass ratio] 19.2 mg/mg 10-20 [facility] Laboratory - Hematology and Cell countsOrdered By: Jared Guzman on 01-17-2024 MCH (RBC) [Entitic mass] 27.1 pg 27.0-32.0 [facility] MCHC (RBC) [Mass/Vol] 30.8 g/dL 32-36 [facility] Platelet mean volume (Bld) [Entitic vol] 10.5 fL 6.2-12.0 [facility] Platelets (Bld) [#/Vol] 372 10*3/uL 150-450 [facility] No Panel InformationOrdered By: Jared Guzamn on 01-17-2024 Estimated GFR (MDRD) Amer 85 mL/min >60 [facility] Comment on above: GFR Calc Estimated GFR (MDRD) Non-Af Amer 70 mL/min >60 [facility] Comment on above: Non- GFR Calc RBC Auto (Bld) [#/Vol]Ordere d By: Jared Guzman on 01-17-2024 RBC (Bld) [#/Vol] 3.58 10*6/uL 4.2-5.4 [facility] Serum or plasma calcium mauricio urement (mass/volume)Ordered By: Jared Guzman on 01-17-2024 Calcium [Mass/Vol] 8.6 mg/dL 8.5-10.1 [facility] Serum or plasma creatinine m easurement (mass/volume)Ordered By: Jared Guzman on 01-17-2024 Creatinine [Mass/Vol] 0.88 mg/dL 0.55-1.02 [facility] Comment on above: The validity of the calculated GFR & GFRAA in patients over 70 years has not been determined. Clinical correlation is essential. Serum or plasma urea nitroge n measurement (mass/volume)Ordered By: Jared Guzman on 01-17-2024 Urea nitrogen [Mass/Vol] 17 mg/dL 7-18 [facility] Thin prep Papanicolaou smear with manual screeningOrdered By: Jared Guzman on 01-17-2024 Thin prep Papanicolaou smear with manual screening 2.9 g/dL 3.2-5.0 [facility] Thin prep Papanicolaou smear with manual screening 13 U/L 15-37 [facility] Thin prep Papanicolaou smear with manual screening 8 5-15 [facility] Whole blood hemoglobin A1c/t otal hemoglobin ratio (mass fraction)Ordered By: Jared Guzman on 01-17-2024 HbA1c (Bld) [Mass fraction] 8.1 % 3.8-5.6 [facility] Comment on above: Normal < 5.7 % Predi abetic 5.7 - 6.4 % Diabetic >or= 6.5 % Please note range changes. Basophil percentageOrdered B y: Jared Guzman on 01-13-2024 Chloride [Moles/Vol] 107 mmol/L 98-107 [facility] Cholesterol [Mass/Vol] 147 mg/dL <200 [facility] Comment on above: <200 mg/dL Desirable 200-240 mg/dL Borderline >240 mg/dL High Risk Glucose [Mass/Vol] 72 mg/dL 74-106 [facility] Hemoglobin (Bld) [Mass/Vol] 9.4 g/dL 12.0-15.0 [facility] Potassium [Moles/Vol] 3.9 mmol/L 3.5-5.1 [facility] Sodium [Moles/Vol] 141 mmol/L 136-145 [facility] Triglyceride [Mass/Vol] 137 mg/dL <199 [facility] Comment on above: The drugs N-Acetylcy steine and Metamizole may falsely depress this assay.Serum Triglycerides Reference Interval Normal <150 mg/dL Borderline high 150 - 199 mg/dL High 200 - 499 mg/dL Very High > or = 500 mg/dL WBC (Bld) [#/Vol] 7.1 10*3/uL 4.4-11.0 [facility] Determination of erythrocyte mean corpuscular volume (MCV)Ordered By: Jared Guzman on 01-13-2024 MCV (RBC) [Entitic vol] 87.4 fL 81-99 [facility] Erythrocyte distribution wid th ratioOrdered By: Jared Guzman on 01-13-2024 Erythrocyte distribution width (RBC) [Ratio] 14.6 % 11.6-14.6 [facility] Erythrocyte distribution wid th standard deviationOrdered By: Jared Guzman on 01-13-2024 Erythrocyte distribution width (RBC) [Entitic vol] 46.7 fL 35.1-43.9 [facility] Hematocrit Auto (Bld) [Volum e fraction]Ordered By: Jared Guzman on 01-13-2024 Hematocrit (Bld) [Volume fraction] 29.9 % 37-47 [facility] Laboratory - Chemistry and C hemistry - challengeOrdered By: Jared Guzman on 01-13-2024 Cholesterol in HDL [Mass/Vol] 37 mg/dL >40 [facility] Comment on above: The drugs N-Acetylcy steine and Metamizole may falsely depress this assay. Reference Range HDL <40 mg/dL Low HDL Cholesterol HDL >or= 60 mg/dL High HDL Cholesterol Cholesterol in LDL [Mass/Vol] 83 mg/dL 0-130 [facility] CO2 [Moles/Vol] 26.0 mmol/L 21.0-32.0 [facility] Urea nitrogen/Creatinine [Mass ratio] 30.8 mg/mg 10-20 [facility] Laboratory - Hematology and Cell countsOrdered By: Jared Guzman on 01-13-2024 MCH (RBC) [Entitic mass] 27.5 pg 27.0-32.0 [facility] MCHC (RBC) [Mass/Vol] 31.4 g/dL 32-36 [facility] Platelet mean volume (Bld) [Entitic vol] 9.8 fL 6.2-12.0 [facility] Platelets (Bld) [#/Vol] 380 10*3/uL 150-450 [facility] No Panel InformationOrdered By: Jared Guzman on 01-13-2024 Estimated GFR (MDRD) Amer 129 mL/min >60 [facility] Comment on above: GFR Calc Estimated GFR (MDRD) Non-Af Amer 106 mL/min >60 [facility] Comment on above: Non- GFR Calc VLDL Cholesterol 27 mg/dL 5-40 [facility] RBC Auto (Bld) [#/Vol]Ordere d By: Jared Guzman on 01-13-2024 RBC (Bld) [#/Vol] 3.42 10*6/uL 4.2-5.4 [facility] Serum or plasma calcium mauricio urement (mass/volume)Ordered By: Jared Guzman on 01-13-2024 Calcium [Mass/Vol] 8.7 mg/dL 8.5-10.1 [facility] Serum or plasma creatinine m easurement (mass/volume)Ordered By: Jared Guzman on 01-13-2024 Creatinine [Mass/Vol] 0.62 mg/dL 0.55-1.02 [facility] Comment on above: The validity of the calculated GFR & GFRAA in patients over 70 years has not been determined. Clinical correlation is essential. Serum or plasma urea nitroge n measurement (mass/volume)Ordered By: Jared Guzman on 01-13-2024 Urea nitrogen [Mass/Vol] 19 mg/dL 7-18 [facility] Thin prep Papanicolaou smear with manual screeningOrdered By: Jared Guzman on 01-13-2024 Thin prep Papanicolaou smear with manual screening 8 5-15 [facility] Basophil percentageOrdered B y: Jared Guzman on 12-31-2023 Chloride [Moles/Vol] 101 mmol/L 98-107 [facility] Glucose [Mass/Vol] 87 mg/dL 74-106 [facility] Hemoglobin (Bld) [Mass/Vol] 10.1 g/dL 12.0-15.0 [facility] Potassium [Moles/Vol] 4.8 mmol/L 3.5-5.1 [facility] Sodium [Moles/Vol] 133 mmol/L 136-145 [facility] WBC (Bld) [#/Vol] 11.6 10*3/uL 4.4-11.0 [facility] Determination of erythrocyte mean corpuscular volume (MCV)Ordered By: Jared Guzman on 12-31-2023 MCV (RBC) [Entitic vol] 87.8 fL 81-99 [facility] Erythrocyte distribution wid th ratioOrdered By: Jared Guzman on 12-31-2023 Erythrocyte distribution width (RBC) [Ratio] 14.1 % 11.6-14.6 [facility] Erythrocyte distribution wid th standard deviationOrdered By: Jared Guzman on 12-31-2023 Erythrocyte distribution width (RBC) [Entitic vol] 45.6 fL 35.1-43.9 [facility] Hematocrit Auto (Bld) [Volum e fraction]Ordered By: Jared Guzman on 12-31-2023 Hematocrit (Bld) [Volume fraction] 32.5 % 37-47 [facility] Laboratory - Chemistry and C hemistry - challengeOrdered By: Jared Guzman on 12-31-2023 CO2 [Moles/Vol] 24.0 mmol/L 21.0-32.0 [facility] Urea nitrogen/Creatinine [Mass ratio] 12.1 mg/mg 10-20 [facility] Laboratory - Hematology and Cell countsOrdered By: Jared Guzman on 12-31-2023 MCH (RBC) [Entitic mass] 27.3 pg 27.0-32.0 [facility] MCHC (RBC) [Mass/Vol] 31.1 g/dL 32-36 [facility] Platelet mean volume (Bld) [Entitic vol] 10.1 fL 6.2-12.0 [facility] Platelets (Bld) [#/Vol] 413 10*3/uL 150-450 [facility] No Panel InformationOrdered By: Jared Guzman on 12-31-2023 Estimated GFR (MDRD) Amer 16 mL/min >60 [facility] Comment on above: GFR Calc Estimated GFR (MDRD) Non-Af Amer 13 mL/min >60 [facility] Comment on above: Non- GFR Calc RBC Auto (Bld) [#/Vol]Ordere d By: Jared Guzman on 12-31-2023 RBC (Bld) [#/Vol] 3.70 10*6/uL 4.2-5.4 [facility] Serum or plasma calcium mauricio urement (mass/volume)Ordered By: Jared Guzman on 12-31-2023 Calcium [Mass/Vol] 8.9 mg/dL 8.5-10.1 [facility] Serum or plasma creatinine m easurement (mass/volume)Ordered By: Jaerd Guzman on 12-31-2023 Creatinine [Mass/Vol] 3.80 mg/dL 0.55-1.02 [facility] Comment on above: The validity of the calculated GFR & GFRAA in patients over 70 years has not been determined. Clinical correlation is essential. Serum or plasma urea nitroge n measurement (mass/volume)Ordered By: Jared Guzman on 12-31-2023 Urea nitrogen [Mass/Vol] 46 mg/dL 7-18 [facility] Thin prep Papanicolaou smear with manual screeningOrdered By: Jared Guzman on 12-31-2023 Thin prep Papanicolaou smear with manual screening 8 5-15 [facility] Basophil percentageOrdered B y: Jared Guzman on 12-30-2023 Chloride [Moles/Vol] 103 mmol/L 98-107 [facility] Glucose [Mass/Vol] 116 mg/dL 74-106 [facility] Comment on above: Fasting Glucose resu lt from 100 to 125 mg/dL suggests IMPAIRED HOMEOSTASIS per A.D.A. criteria. Hemoglobin (Bld) [Mass/Vol] 10.6 g/dL 12.0-15.0 [facility] Potassium [Moles/Vol] 4.4 mmol/L 3.5-5.1 [facility] Sodium [Moles/Vol] 133 mmol/L 136-145 [facility] WBC (Bld) [#/Vol] 13.1 10*3/uL 4.4-11.0 [facility] Determination of erythrocyte mean corpuscular volume (MCV)Ordered By: Jared Guzman on 12-30-2023 MCV (RBC) [Entitic vol] 86.8 fL 81-99 [facility] Erythrocyte distribution wid th ratioOrdered By: Jared Guzman on 12-30-2023 Erythrocyte distribution width (RBC) [Ratio] 13.6 % 11.6-14.6 [facility] Erythrocyte distribution wid th standard deviationOrdered By: Jared Guzman on 12-30-2023 Erythrocyte distribution width (RBC) [Entitic vol] 43.0 fL 35.1-43.9 [facility] Hematocrit Auto (Bld) [Volum e fraction]Ordered By: Jared Guzman on 12-30-2023 Hematocrit (Bld) [Volume fraction] 34.2 % 37-47 [facility] Laboratory - Chemistry and C hemistry - challengeOrdered By: Jared Guzman on 12-30-2023 CO2 [Moles/Vol] 24.0 mmol/L 21.0-32.0 [facility] Urea nitrogen/Creatinine [Mass ratio] 19.3 mg/mg 10-20 [facility] Laboratory - Hematology and Cell countsOrdered By: Jared Guzman on 12-30-2023 MCH (RBC) [Entitic mass] 26.9 pg 27.0-32.0 [facility] MCHC (RBC) [Mass/Vol] 31.0 g/dL 32-36 [facility] Platelet mean volume (Bld) [Entitic vol] 10.3 fL 6.2-12.0 [facility] Platelets (Bld) [#/Vol] 434 10*3/uL 150-450 [facility] No Panel InformationOrdered By: Jared Guzman on 12-30-2023 Estimated GFR (MDRD) Amer 42 mL/min >60 [facility] Comment on above: GFR Calc Estimated GFR (MDRD) Non-Af Amer 35 mL/min >60 [facility] Comment on above: Non- GFR Calc RBC Auto (Bld) [#/Vol]Ordere d By: Jared Guzman on 12-30-2023 RBC (Bld) [#/Vol] 3.94 10*6/uL 4.2-5.4 [facility] Serum or plasma calcium mauricio urement (mass/volume)Ordered By: Jared Guzman on 12-30-2023 Calcium [Mass/Vol] 9.4 mg/dL 8.5-10.1 [facility] Serum or plasma creatinine m easurement (mass/volume)Ordered By: Jared Guzman on 12-30-2023 Creatinine [Mass/Vol] 1.61 mg/dL 0.55-1.02 [facility] Comment on above: The validity of the calculated GFR & GFRAA in patients over 70 years has not been determined. Clinical correlation is essential. Serum or plasma urea nitroge n measurement (mass/volume)Ordered By: Jared Guzman on 12-30-2023 Urea nitrogen [Mass/Vol] 31 mg/dL 7-18 [facility] Thin prep Papanicolaou smear with manual screeningOrdered By: Jared Guzman on 12-30-2023 Thin prep Papanicolaou smear with manual screening 6 5-15 [facility] Basic metabolic 1998 panelon 12-29-2023 Anion gap [Moles/Vol] 8 mmol/L 3 - 13 mmol/L [facility] [employer] Calcium [Mass/Vol] 9.2 mg/dL 8.4 - 10. 4 mg/dL [facility] [employer] Chloride [Moles/Vol] 99 mmol/L 98 - 10 7 mmol/L [facility] [employer] CO2 [Moles/Vol] 21 mmol/L Low 22 - 30 mmol/L [facility] [employer] Creatinine [Mass/Vol] 0.70 mg/dL Male: 0.66-1.25 mg/dL; Female: 0.52-1.04 mg/dL [facility] [employer] GFR/1.73 sq M.predicted MDRD (S/P/Bld) [Vol rate/Area] - [facility] Comment on above: Calculation based on the Chronic Kidney Disease Epidemiology Collaboration (CKD-EPI) equation refit without adjustment for race Glucose [Mass/Vol] 341 mg/dL High 70 - 100 mg/dL [facility] Interpretation and review of laboratory results Abnormal [facility] [employer] Potassium [Moles/Vol] 5.3 mmol/L High 3.5 - 5.1 mmol/L [facility] [employer] Sodium [Moles/Vol] 128 mmol/L Low 135 - 145 mmol/L [facility] Urea nitrogen [Mass/Vol] 28 mg/dL Male: 9-20 mg/dL; Female: 7-17 mg/dL [facility] Basic metabolic 1997 panelOr dered By: Abner Vieyra on 12-29-2023 Anion gap [Moles/Vol] 7 mmol/L 3 - 13 mmol/L [facility] [employer] Calcium [Mass/Vol] 9.2 mg/dL 8.4 - 10. 4 mg/dL [facility] [employer] Chloride [Moles/Vol] 99 mmol/L 98 - 10 7 mmol/L [facility] [employer] CO2 [Moles/Vol] 23 mmol/L 22 - 30 mmol/L [facility] Creatinine [Mass/Vol] 0.79 mg/dL Male: 0.66-1.25 mg/dL; Female: 0.52-1.04 mg/dL [facility] GFR/1.73 sq M.predicted MDRD (S/P/Bld) [Vol rate/Area] 87.4 mL/min/{1.73_m2} - [facility] Comment on above: Calculation based on the Chronic Kidney Disease Epidemiology Collaboration (CKD-EPI) equation refit without adjustment for race Glucose [Mass/Vol] 284 mg/dL High 70 - 100 mg/dL [facility] Interpretation and review of laboratory results Abnormal [facility] Potassium [Moles/Vol] 5.7 mmol/L High 3.5 - 5.1 mmol/L [facility] Sodium [Moles/Vol] 129 mmol/L Low 135 - 145 mmol/L [facility] Urea nitrogen [Mass/Vol] 36 mg/dL Male: 9-20 mg/dL; Female: 7-17 mg/dL [facility] CBC W Auto Differential pane l (Bld)Ordered By: Laney Rader on 12-29-2023 Basophils (Bld) [#/Vol] 0.1 10*3/uL 0.0 - 0.2 10*3/uL [facility] Basophils/100 WBC (Bld) 0.8 % 0.0 - 2.0 % [facility] Eosinophils (Bld) [#/Vol] 0.1 10*3/uL 0.0 - 0.5 10*3/uL [facility] Eosinophils/100 WBC (Bld) 0.7 % Low 1.0 - 6.0 % [facility] Erythrocyte distribution width (RBC) [Ratio] 14.5 % 11.5 - 14.5 % [facility] Hematocrit (Bld) [Volume fraction] 35.9 % Male: 40.0-52.0 %; Female: 35.0-47.0 % [facility] Hemoglobin (Bld) [Mass/Vol] 11.8 g/dL 11.7 - 18.0 g/dL [facility] Interpretation and review of laboratory results Abnormal [facility] Lymphocytes (Bld) [#/Vol] 1.6 10*3/uL 1.0 - 4.3 10*3/uL [facility] Lymphocytes/100 WBC (Bld) 12.3 % Low 20.0 - 40.0 % [facility] MCH (RBC) [Entitic mass] 27.4 pg 26.0 - 34.0 pg [facility] MCHC (RBC) [Mass/Vol] 32.9 % 32.0 - 36.0 % [facility] MCV (RBC) [Entitic vol] 83.3 fL 80.0 - 98.0 fL [facility] Monocytes (Bld) [#/Vol] 0.6 10*3/uL 0.0 - 0.8 10*3/uL [facility] [employer] Monocytes/100 WBC (Bld) 4.9 % 2.0 - 10.0 % [facility] Neutrophils (Bld) [#/Vol] 10.4 10*3/uL High 1.8 - 7.0 10*3/uL [facility] Neutrophils/100 WBC (Bld) 81.3 % High 40.0 - 80.0 % [facility] [employer] Nucleated RBC/100 WBC (Bld) [Ratio] 0.0 % [facility] [employer] Platelet mean volume (Bld) [Entitic vol] 7.9 fL 7.4 - 12.4 fL [facility] [employer] Platelets (Bld) [#/Vol] 388 10*3/uL 140 - 440 10*3/uL [facility] RBC (Bld) [#/Vol] 4.31 10*6/uL Male: 4.40-5.90; Female: 3.80-5.20 [facility] [employer] WBC (Bld) [#/Vol] 12.8 10*3/uL High 3.6 - 10.7 10*3/uL [facility] Laboratory - Chemistry and C hemistry - challengeon 12-29-2023 Glucose [Mass/Vol] 319 mg/dL High 70 - 100 mg/dL [facility] [employer] Glucose [Mass/Vol] 346 mg/dL High 70 - 100 mg/dL [facility] [employer] Glucose [Mass/Vol] 279 mg/dL High 70 - 100 mg/dL [facility] [employer] Beta hydroxybutyrate [Mass/Vol] 6.84 mg/dL High 0.20 - 2.81 mg/dL [facility] [employer] No Panel Informationon 12-29 P [place] 40 degrees [facility] [employer] IN Interval 168 ms [facility] rocket staff QRS [place] -37 degrees [facility] [employer] QRSD Interval 117 ms [facility] [employer] QT Interval 414 ms [facility] [employer] QTC Interval 479 ms [facility] [employer] T Wave [place] 23 degrees [facility] [employer] Sinus rhythm Nonspecific IVCD with LAD Left ventricular hypertrophy Electronically Signed On 12-29-2023 06:52:01 EST by Edwin Bustos CV Edwin Cook MD - 12/29/2023 IMPRESSION: Sinus rhythm Nonspecific IVCD with LAD Left ventricular hypertrophy Electronically Signed On 12-29-2023 06:52:01 EST by Edwin Bustos [facility] Interpretation and review of laboratory results Abnormal [facility]formed by: [facility], [address] [place] [id number] CLIA ID: [id number] [facility] Interpretation and review of laboratory results Abnormal [facility] Performed by: [facility], [address] [place] [id number] CLIA ID: [id number] [facility] Interpretation and review of laboratory results Abnormal [facility] Performed by: [facility], [address] [place] [address], [facility] [address] CLIA ID: [id number] [facility] Interpretation and review of laboratory results Abnormal [facility] Radiology Study observation (narrative) [facility] Radiology Study observation (narrative) [facility] Radiology Study observation (narrative) [facility] Vital signson 12-29-2023 Heart rate 80 /min bpm [facility] Stomach Views for gastric emptying solid phase W radionuclide Jacob 12-23-2023 Abnormally delayed gastric emptying following solid meal. Report Dictated on Electronically Signed By: Edwin Paz MD Electronically Signed Date/Time: 12/23/2023 12:06 PM EST [facility] [employer] [facility] Name[facility]AD[facility] 1965 [id number] Exam Date/Time: 12/23/2023 11:45 Procedure: NM GASTRIC [...] ingestion is between 19 and 52 percent. [facility] Edwin Paz MD - 12/23/2023 Patient Name: WILL [facility]ACINTO [facility] 1965 [id number] Exam Date/Time: 12/23/2023 11:45 Procedure: NM GASTRIC [...] Electronically Signed Date/Time: 12/23/2023 12:06 PM EST [facility] Radiology Study observation (narrative) [facility] Stomach Views for gastric emptying solid phase W radionuclide POOrdered By: Edwin Paz on 12-23-2023 [facility] Basophil percentageOrdered B y: Jared Linnchad on 12-22-2023 Chloride [Moles/Vol] 105 mmol/L 98-107 [facility] Glucose [Mass/Vol] 129 mg/dL 74-106 [facility] Comment on above: Fasting Glucose resu lt greater than or equal to 126 mg/dL suggests DIABETES MELLITUS per A.D.A. criteria. Hemoglobin (Bld) [Mass/Vol] 10.2 g/dL 12.0-15.0 [facility] Potassium [Moles/Vol] 4.8 mmol/L 3.5-5.1 [facility] Sodium [Moles/Vol] 136 mmol/L 136-145 [facility] WBC (Bld) [#/Vol] 9.4 10*3/uL 4.4-11.0 [facility] Determination of erythrocyte mean corpuscular volume (MCV)Ordered By: Jared Guzman on 12-22-2023 MCV (RBC) [Entitic vol] 85.8 fL 81-99 [facility] Erythrocyte distribution wid th ratioOrdered By: Jared Guzman on 12-22-2023 Erythrocyte distribution width (RBC) [Ratio] 13.6 % 11.6-14.6 [facility] Erythrocyte distribution wid th standard deviationOrdered By: Jared Guzman on 12-22-2023 Erythrocyte distribution width (RBC) [Entitic vol] 42.4 fL 35.1-43.9 [facility] Hematocrit Auto (Bld) [Volum e fraction]Ordered By: Jared Guzman on 12-22-2023 Hematocrit (Bld) [Volume fraction] 32.1 % 37-47 [facility] Laboratory - Chemistry and C hemistry - challengeOrdered By: Jared Guzman on 12-22-2023 CO2 [Moles/Vol] 25.0 mmol/L 21.0-32.0 [facility] Urea nitrogen/Creatinine [Mass ratio] 37.0 mg/mg 10-20 [facility] Laboratory - Hematology and Cell countsOrdered By: Jared Guzman on 12-22-2023 MCH (RBC) [Entitic mass] 27.3 pg 27.0-32.0 [facility] MCHC (RBC) [Mass/Vol] 31.8 g/dL 32-36 [facility] Platelet mean volume (Bld) [Entitic vol] 9.9 fL 6.2-12.0 [facility] Platelets (Bld) [#/Vol] 393 10*3/uL 150-450 [facility] No Panel InformationOrdered By: Jared Guzman on 12-22-2023 Estimated GFR (MDRD) Amer 78 mL/min >60 [facility] Comment on above: GFR Calc Estimated GFR (MDRD) Non-Af Amer 65 mL/min >60 [facility] Comment on above: Non- GFR Calc RBC Auto (Bld) [#/Vol]Ordere d By: Jared Guzman on 12-22-2023 RBC (Bld) [#/Vol] 3.74 10*6/uL 4.2-5.4 [facility] Serum or plasma calcium mauricio urement (mass/volume)Ordered By: Jared Guzman on 12-22-2023 Calcium [Mass/Vol] 9.1 mg/dL 8.5-10.1 [facility] Serum or plasma creatinine m easurement (mass/volume)Ordered By: Jared Guzman on 12-22-2023 Creatinine [Mass/Vol] 0.95 mg/dL 0.55-1.02 [facility] Comment on above: The validity of the calculated GFR & GFRAA in patients over 70 years has not been determined. Clinical correlation is essential. Serum or plasma urea nitroge n measurement (mass/volume)Ordered By: Jared Guzman on 12-22-2023 Urea nitrogen [Mass/Vol] 35 mg/dL 7-18 [facility] Thin prep Papanicolaou smear with manual screeningOrdered By: Jared Guzman on 12-22-2023 Thin prep Papanicolaou smear with manual screening 6 5-15 [facility] CBC W Auto Differential pane l (Bld)Ordered By: Erickson Olmedo on 12-09-2023 Basophils (Bld) [#/Vol] 0.1 10*3/uL 0.0 - 0.2 10*3/uL [facility] [employer] Basophils/100 WBC (Bld) 0.6 % 0.0 - 2.0 % [facility] Eosinophils (Bld) [#/Vol] 0.0 10*3/uL 0.0 - 0.5 10*3/uL [facility] Eosinophils/100 WBC (Bld) 0.1 % Low 1.0 - 6.0 % [facility] Erythrocyte distribution width (RBC) [Ratio] 14.5 % 11.5 - 14.5 % [facility] [employer] Hematocrit (Bld) [Volume fraction] 36.0 % Male: 40.0-52.0 %; Female: 35.0-47.0 % [facility] [employer] [facility] Hemoglobin (Bld) [Mass/Vol] 12.1 g/dL 11.7 - 18.0 g/dL [facility] Interpretation and review of laboratory results Abnormal [facility] [employer] Lymphocytes (Bld) [#/Vol] 1.0 10*3/uL 1.0 - 4.3 10*3/uL [facility] [employer] Lymphocytes/100 WBC (Bld) 9.5 % Low 20.0 - 40.0 % [facility] MCH (RBC) [Entitic mass] 28.1 pg 26.0 - 34.0 pg [facility] MCHC (RBC) [Mass/Vol] 33.5 % 32.0 - 36.0 % [facility] MCV (RBC) [Entitic vol] 83.9 fL 80.0 - 98.0 fL [facility] Monocytes (Bld) [#/Vol] 0.5 10*3/uL 0.0 - 0.8 10*3/uL [facility] Monocytes/100 WBC (Bld) 4.8 % 2.0 - 10.0 % [facility] Neutrophils (Bld) [#/Vol] 9.1 10*3/uL High 1.8 - 7.0 10*3/uL [facility] Neutrophils/100 WBC (Bld) 85.0 % High 40.0 - 80.0 % [facility] Nucleated RBC/100 WBC (Bld) [Ratio] 0.0 % [facility] Platelet mean volume (Bld) [Entitic vol] 8.0 fL 7.4 - 12.4 fL [facility] Platelets (Bld) [#/Vol] 485 10*3/uL High 140 - 440 10*3/uL [facility] RBC (Bld) [#/Vol] 4.29 10*6/uL Male: 4.40-5.90; Female: 3.80-5.20 [facility] WBC (Bld) [#/Vol] 10.7 10*3/uL 3.6 - 10.7 10*3/uL [facility] Comprehensive metabolic 1998 panelon 12-09-2023 Albumin [Mass/Vol] 4.0 g/dL 3.5 - 5.0 g/dL [facility] ALP [Catalytic activity/Vol] 139 U/L High 38 - 126 U/L [facility] ALT [Catalytic activity/Vol] 29 U/L Male: 0-49 U/L; Female: 0-34 U/L [facility] Anion gap [Moles/Vol] 11 mmol/L 3 - 13 mmol/L [facility] AST [Catalytic activity/Vol] 25 U/L 15 - 46 U/L [facility] Bilirubin [Mass/Vol] 0.7 mg/dL 0.2 - 1 .3 mg/dL [facility] Calcium [Mass/Vol] 9.0 mg/dL 8.4 - 10. 4 mg/dL [facility] Chloride [Moles/Vol] 96 mmol/L Low 98 - 10 7 mmol/L [facility] CO2 [Moles/Vol] 24 mmol/L 22 - 30 mmol/L [facility] Creatinine [Mass/Vol] 0.76 mg/dL Male: 0.66-1.25 mg/dL; Female: 0.52-1.04 mg/dL [facility] GFR/1.73 sq M.predicted MDRD (S/P/Bld) [Vol rate/Area] - PINF [facility] Comment on above: Calculation based on the Chronic Kidney Disease Epidemiology Collaboration (CKD-EPI) equation refit without adjustment for race Glucose [Mass/Vol] 295 mg/dL High 70 - 100 mg/dL [facility] Interpretation and review of laboratory results Abnormal [facility] Potassium [Moles/Vol] 5.0 mmol/L 3.5 - 5.1 mmol/L [facility] Protein [Mass/Vol] 7.2 g/dL 6.3 - 8.2 g/dL [facility] Sodium [Moles/Vol] 132 mmol/L Low 135 - 145 mmol/L [facility] Urea nitrogen [Mass/Vol] 26 mg/dL Male: 9-20 mg/dL; Female: 7-17 mg/dL [facility] Laboratory - Chemistry and C hemistry - challengeon 12-09-2023 Troponin I.cardiac [Mass/Vol] ng/mL [facility] - 0.034 ng/mL [facility] Troponin I.cardiac [Mass/Vol] ng/mL [facility] - 0.034 ng/mL [facility] Beta hydroxybutyrate [Mass/Vol] 5.77 mg/dL High 0.20 - 2.81 mg/dL [facility] Lactate [Moles/Vol] 1.4 mmol/L 0.7 - 2. 0 mmol/L [facility] Lipase [Catalytic activity/Vol] 41 U/L 23 - 300 U/L [facility] Magnesium [Mass/Vol] 1.6 mg/dL 1.6 - 2 .3 mg/dL [facility] Base excess Calc (BldV) [Moles/Vol] -0.6000 mmol/L -3 - 3 mmol/L [facility] CO2 (BldV) [Partial pressure] 42.1 mm[Hg] [facility] HCO3 (Bld) [Moles/Vol] 24.7 mmol/L 23.0 - 27.0 mmol/L [facility] Oxygen (BldV) [Partial pressure] 34.1 mm[Hg] mm Hg [facility] pH (BldV) 7.377 [pH] 7.330 - 7.430 pH [facility] Laboratory - Microbiology an d Antimicrobial susceptibilityon 12-09-2023 FLUAV RNA YASIR+probe Ql (Resp) Not detected Not Detected [facility] FLUBV RNA YASIR+probe Ql (Resp) Not detected Not Detected [facility] RSV RNA YASIR+probe Ql (Resp) Not detected Not Detected [facility] SARS-CoV-2 (COVID-19) RNA YASIR+probe Ql (Resp) Not detected Not Detected [facility] SARS-CoV-2 (COVID-19) RNA YASIR+probe Ql (Unsp spec) Methodology: real-time, RT-PCR The SARS-CoV-2, Flu A/B, and RSV Combo assay is intended for in vitro diagnostic use under the FDA Emergency Use Authorization (EUA). This test has not been FDA cleared or approved. In compliance with this authorization, please visit www.fda.gov/media/252071 /download or www.fda.gov/media/155016 /download to access the applicable information sheets. [facility] No Panel Informationon 12-09 Interpretation and review of laboratory results Abnormal [facility] P [place] 35 degrees [facility] IN Interval 158 ms [facility] QRS [place] -33 degrees [facility] QRSD Interval 114 ms [facility] QT Interval 388 ms [facility] QTC Interval 468 ms [facility] T Wave [place] 27 degrees [facility] Caridad Evans MD - 12/09/2023 IMPRESSION: Sinus rhythm Abnormal R-wave progression, late transition Left ventricular hypertrophy No significant change compared to 08/17/2023 Electronically Signed On 12-09-2023 06:18:33 EST by Caridad Barnard [facility] Interpretation and review of laboratory results Normal [facility] Interpretation and review of laboratory results Normal [facility] FIO2 [facility] Performed by: Nati Vigil [facility], [address] [facility] [address] CLIA ID: [id number] [facility] Radiology Study observation (narrative) [facility] SARS-CoV-2, Flu A/B, and RSV Comboon 12-09-2023 Interpretation and review of laboratory results Normal [facility] Troponin I.cardiac [Mass/Vol ]on 12-09-2023 Interpretation and review of laboratory results Normal [facility] Specimen slightly hemolyzed, interpret results with caution Patients with high levels of Biotin oral intake (ie >5 mg/day) may have falsely decreased Troponin levels. [facility] Interpretation and review of laboratory results Normal [facility] Patients with high levels of Biotin oral intake (ie >5 mg/day) may have falsely decreased Troponin levels. [facility] Urinalysis complete panel (U )Ordered By: Jackson Her on 12-09-2023 Bacteria LM.HPF (Urine sed) [#/Area] Few Abnormal Negative /HPF [facility] Bilirubin Ql (U) Negative Negative mg/dL [facility] Clarity (U) Clear Clear [facility] Color (U) Light Yellow Lt. Yellow [facility] Epithelial cells.squamous LM.HPF (Urine sed) [#/Area] 0-2 [facility] Glucose Ql (U) 500 mg/dL Abnormal Normal (<70) [facility] Hemoglobin Ql (U) 0.06 mg/dL Abnormal Negative [facility] Hyaline casts Auto (Urine sed) [#/Area] 0-2 Abnormal Negative /LPF [facility] Interpretation and review of laboratory results Abnormal [facility] Ketones (U) [Mass/Vol] 10 mg/dL Abnormal Negative [facility] Leukocyte esterase Test strip Ql (U) 25 Abnormal Negative Kat/uL [facility] Mucus LM.HPF (Urine sed) [#/Area] Few Negative /LPF [facility] Nitrite Ql (U) Negative Negative [facility] Non-Squamous Epithalial Cells, Urine 0-2 Abnormal Negative /HPF [facility] pH (U) 6.0 [pH] 5.0 - 8.0 pH [facility] Protein (U) [Mass/Vol] 300 mg/dL Abnormal Negative [facility] RBC LM.HPF (Urine sed) [#/Area] 3-5 Abnormal [facility] Specific gravity (U) [Rel density] 1.021 1.005 - 1.030 [facility] Urobilinogen (U) [Mass/Vol] Normal Normal (0-1) mg/dL [facility] WBC LM.HPF (Urine sed) [#/Area] 6-10 Abnormal [facility] Vital signson 12-09-2023 Heart rate 87 /min bpm [facility] Oxygen saturation in Venous blood 64.1 % [facility] Comment on above: Performed by CLIA ID : [id number] [place], [place] ?Device: [id number] 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 [facility] Sergio Muniz MD - 12/09/2023 Patient [...] Electronically Signed Date/Time: 12/09/2023 6:11 AM EST [facility] [employer] Radiology Study observation (narrative) [employer] XR Chest Single viewOrdered By: Sergio Muniz on 12-09-2023 [employer] Work Phone: Basophil percentageOrdered B y: Jared Guzman on 11-23-2023 Chloride [Moles/Vol] 106 mmol/L 98-107 [facility] Glucose [Mass/Vol] 212 mg/dL 74-106 [facility] Comment on above: Glucose result great er than or equal to 200 mg/dLsuggests DIABETES MELLITUS per A.D.A. criteria. Hemoglobin (Bld) [Mass/Vol] 10.5 g/dL 12.0-15.0 [facility] Potassium [Moles/Vol] 5.0 mmol/L 3.5-5.1 [facility] Sodium [Moles/Vol] 136 mmol/L 136-145 [facility] WBC (Bld) [#/Vol] 7.5 10*3/uL 4.4-11.0 [facility] Determination of erythrocyte mean corpuscular volume (MCV)Ordered By: Jared Guzman on 11-23-2023 MCV (RBC) [Entitic vol] 87.7 fL 81-99 [facility] Erythrocyte distribution wid th ratioOrdered By: Jared Guzman on 11-23-2023 Erythrocyte distribution width (RBC) [Ratio] 13.7 % 11.6-14.6 [facility] Erythrocyte distribution wid th standard deviationOrdered By: Jared Guzman on 11-23-2023 Erythrocyte distribution width (RBC) [Entitic vol] 43.8 fL 35.1-43.9 [facility] Hematocrit Auto (Bld) [Volum e fraction]Ordered By: Jared Guzman on 11-23-2023 Hematocrit (Bld) [Volume fraction] 33.4 % 37-47 [facility] Iron measurement (mass/mass) Ordered By: Jared Guzman on 11-23-2023 Iron (Unsp spec) [Mass/Mass] 53 ug/dL 50-170 [facility] Laboratory - Chemistry and C hemistry - challengeOrdered By: Jared Guzman on 11-23-2023 CO2 [Moles/Vol] 24.0 mmol/L 21.0-32.0 [facility] Cobalamin (Vitamin B12) [Mass/Vol] 298 pg/mL 211-911 [facility] Ferritin [Mass/Vol] 68 ng/mL 8-252 [facility] Urea nitrogen/Creatinine [Mass ratio] 26.1 mg/mg 10-20 [facility] Laboratory - Hematology and Cell countsOrdered By: Jared Guzman on 11-23-2023 MCH (RBC) [Entitic mass] 27.6 pg 27.0-32.0 [facility] MCHC (RBC) [Mass/Vol] 31.4 g/dL 32-36 [facility] Platelets (Bld) [#/Vol] 347 10*3/uL 150-450 [facility] No Panel InformationOrdered By: Jared Guzman on 11-23-2023 Estimated GFR (MDRD) Amer 94 mL/min >60 [facility] Comment on above: GFR Calc Estimated GFR (MDRD) Non-Af Amer 78 mL/min >60 [facility] Comment on above: Non- GFR Calc Total Iron Binding Capacity 274 ug/dL 250-450 [facility] Platelet mean volume Miquel-Ec ker (Bld) [Entitic vol]Ordered By: Jared Guzman on 11-23-2023 Platelet mean volume (Bld) [Entitic vol] 10.4 fL 6.2-12.0 [facility] RBC Auto (Bld) [#/Vol]Ordere d By: Jared Guzman on 11-23-2023 RBC (Bld) [#/Vol] 3.81 10*6/uL 4.2-5.4 [facility] Serum mitochondria antibody detectionOrdered By: Jared Guzman on 11-23-2023 Mitochondria Ab Ql (S) <20.0 Units 0.0-20.0 [facility] Comment on above: Negative 0.0 - 20.0 Equivocal 20.1 - 24.9 Positive >24.9Mitochondrial (M2) Antibodies are found in 90-96% ofpatients with primary biliary cirrhosis.Performed at: [facility] [address] [id number] Director: Kb Lopez PhD, Phone: [phone] Serum or plasma IgG measurem ent (mass/volume)Ordered By: Jared Guzman on 11-23-2023 IgG [Mass/Vol] 622 mg/dL [phone] [facility] Comment on above: Performed at: [facility] - [facility] [address] [id number] Director: Kb Lopez PhD, Phone: [phone] Serum or plasma bone alkalin e phosphatase/total alkaline phosphatase ratio (catalyticOrdered By: Jared Guzman on 11-23-2023 ALP Bone [Catalytic fraction] 31 % 14-68 [facility] Serum or plasma calcium mauricio urement (mass/volume)Ordered By: Jared Guzman on 11-23-2023 Calcium [Mass/Vol] 9.0 mg/dL 8.5-10.1 [facility] Serum or plasma creatinine m easurement (mass/volume)Ordered By: Jared Guzman on 11-23-2023 Creatinine [Mass/Vol] 0.80 mg/dL 0.55-1.02 [facility] Comment on above: The validity of the calculated GFR & GFRAA in patients over 70 years has not been determined. Clinical correlation is essential. Serum or plasma intestinal a lkaline phosphatase/total alkaline phosphatase ratio (catOrdered By: Jared Guzman on 11-23-2023 ALP Intest [Catalytic fraction] 12 % 0-18 [facility] Serum or plasma liver alkali ne phosphatase/total alkaline phosphatase ratio (catalytiOrdered By: Jared Guzman on 11-23-2023 ALP Liver [Catalytic fraction] 57 % 18-85 [facility] Serum or plasma urea nitroge n measurement (mass/volume)Ordered By: Jared Guzman on 11-23-2023 Urea nitrogen [Mass/Vol] 21 mg/dL 7-18 [facility] Thin prep Papanicolaou smear with manual screeningOrdered By: Jared Guzman on 11-23-2023 Thin prep Papanicolaou smear with manual screening 6 5-15 [facility] Thin prep Papanicolaou smear with manual screening 127 IU/L 44-121 [facility] CNPNon 11-22-2023 CNPN Telephone (GSTNOR) -------- WILL JACINTO ([id number]) 1965 F Date Time Provider Department 11/22/23 ELDA REAVES GSTNOR During your visit today, [...] REAVES on: 11/22/2023 03:09 PM Modules accepted: Orders Kwasi Silva MA 11/22/2023 3:29 PM Signed Nurse Nabil advised lab orders faxed to [phone]. Allergies As of Date: 11/22/2023 (No Known Allergies) Date Reviewed: 11/17/2023 Reviewed by: Elda Reaves PA-C - Fully Assessed Reason for Visit: Results [95] Primary Visit Diagnosis:Anemia, unspecified type [D64.9] Other Visit Diagnosis:Elevated alkaline phosphatase level [R74.8] Order(s):ALK PHOS ISOENZYM BL [SQALKISO] Order #: [id number] FUTURE MITOCHONDRIAL M2 IGG SERUM [SQMITOS] Order #: [id number] FUTURE IRON + TIBC [SQIRON] Order #: [id number] FUTURE FERRITIN BLD [SQFERR] Order #: [id number] FUTURE VITAMIN B12 BLOOD [SQB12] Order #: [id number] FUTURE Prescriptions as of 11/22/2023 - atorvastatin [...] Status:Closed by BELIA PARMAR on 11/22/23 Normal [facility] Absolute lymphocyte countOrd ered By: Jared Guzman on 11-18-2023 Lymphocytes Auto (Unsp spec) [#/Vol] 2.16 10*3/uL 0.83-4.51 [facility] Basophil percentageOrdered B y: Jared Guzman on 11-18-2023 Basophils/100 WBC (Bld) 0.8 % 0-1 [facility] Bilirubin [Mass/Vol] 0.40 mg/dL 0.20-1.00 [facility] Comment on above: For patients on eltr ombopag therapy, use of Dimension [place] TBIL is not recommended. Chloride [Moles/Vol] 104 mmol/L 98-107 [facility] Eosinophils/100 WBC (Bld) 2.3 % 0-5 [facility] Glucose [Mass/Vol] 211 mg/dL 74-106 [facility] Comment on above: Glucose result great er than or equal to 200 mg/dLsuggests DIABETES MELLITUS per A.D.A. criteria. Neutrophils (Bld) [#/Vol] 5.2 10*3/uL 2.0-7.7 [facility] Neutrophils/100 WBC (Bld) 62.4 % 47-70 [facility] Potassium [Moles/Vol] 4.9 mmol/L 3.5-5.1 [facility] Protein [Mass/Vol] 6.3 g/dL 6.4-8.2 [facility] Sodium [Moles/Vol] 136 mmol/L 136-145 [facility] WBC (Bld) [#/Vol] 8.4 10*3/uL 4.4-11.0 [facility] Blood erythrocytes count (nu mber/volume)Ordered By: Jared Guzman on 11-18-2023 RBC (Bld) [#/Vol] 3.93 10*6/uL 4.2-5.4 [facility] Blood hemoglobin measurement (mass/volume)Ordered By: Jared Guzman on 11-18-2023 Hemoglobin (Bld) [Mass/Vol] 10.7 g/dL 12.0-15.0 [facility] Blood lymphocytes/100 leukoc ytesOrdered By: Jared Guzman on 11-18-2023 Lymphocytes/100 WBC (Bld) 25.7 % 19-41 [facility] Blood monocytes/100 leukocyt esOrdered By: Jared Guzman on 11-18-2023 Monocytes/100 WBC (Bld) 7.5 % 0-10 [facility] Blood platelet mean volumeOr dered By: Jared Guzman on 11-18-2023 Platelet mean volume (Bld) [Entitic vol] 10.1 fL 6.2-12.0 [facility] Determination of erythrocyte mean corpuscular volume (MCV)Ordered By: Jared Guzman on 11-18-2023 MCV (RBC) [Entitic vol] 88.5 fL 81-99 [facility] Hematocrit Auto (Bld) [Volum e fraction]Ordered By: Jared Guzman on 11-18-2023 Hematocrit (Bld) [Volume fraction] 34.8 % 37-47 [facility] Laboratory - Chemistry and C hemistry - challengeOrdered By: Jared Guzman on 11-18-2023 ALP [Catalytic activity/Vol] 155 U/L 45-117 [facility] ALT [Catalytic activity/Vol] 30 U/L 13-56 [facility] CO2 [Moles/Vol] 24.0 mmol/L 21.0-32.0 [facility] Globulin (S) [Mass/Vol] 3.5 g/dL 2.2-4.2 [facility] Lipase [Catalytic activity/Vol] 22 U/L 13-75 [facility] Comment on above: Please note:LIPASE r evised reference range effective 23. New Lipase methodology. Expected to produce lower values than the previous assay method. NEW Reference Range: 13 - 75 U/L Urea nitrogen/Creatinine [Mass ratio] 29.0 mg/mg 10-20 [facility] Laboratory - Hematology and Cell countsOrdered By: Jared Guzman on 11-18-2023 Erythrocyte distribution width (RBC) [Entitic vol] 44.7 fL 35.1-43.9 [facility] Erythrocyte distribution width (RBC) [Ratio] 13.8 % 11.6-14.6 [facility] Immature granulocytes/100 WBC (Bld) 1.300 % 0.0-0.9 [facility] Comment on above: IG% - Immature Granu locytes (promyelocytes, myelocytes and metamyelocytes) > 1% indicates that a LEFT SHIFT is Present. MCH (RBC) [Entitic mass] 27.2 pg 27.0-32.0 [facility] Nucleated RBC/100 WBC (Bld) [Ratio] 0 % 0-5 [facility] MCHC Auto (RBC) [Mass/Vol]Or dered By: Jared Guzman on 11-18-2023 MCHC (RBC) [Mass/Vol] 30.7 g/dL 32-36 [facility] No Panel InformationOrdered By: Jared Guzman on 11-18-2023 Endomysial IgA Antibody Negative Negative [facility] Estimated GFR (MDRD) Amer 87 mL/min >60 [facility] Comment on above: GFR Calc Estimated GFR (MDRD) Non-Af Amer 72 mL/min >60 [facility] Comment on above: Non- GFR Calc Platelets bldOrdered By: Mike Guzman on 11-18-2023 Platelets (Bld) [#/Vol] 340 10*3/uL 150-450 [facility] Serum IgA measurement (units /volume)Ordered By: Jared Guzman on 11-18-2023 IgA Qn (S) 224 mg/dL 87-352 [facility] Comment on above: Performed at: - [place] [id number] Director: Kb Lopez PhD, Phone: [phone] Serum or plasma albumin mauricio urement (mass/volume)Ordered By: Jared Guzman on 11-18-2023 Albumin [Mass/Vol] 2.8 g/dL 3.2-5.0 [facility] Serum or plasma albumin/glob ulin mass ratioOrdered By: Jared Guzman on 11-18-2023 Albumin/Globulin [Mass ratio] 0.8 {ratio} 0.9-2.4 [facility] Serum or plasma calcium mauricio urement (mass/volume)Ordered By: Jared Guzman on 11-18-2023 Calcium [Mass/Vol] 9.2 mg/dL 8.5-10.1 [facility] Serum or plasma creatinine m easurement (mass/volume)Ordered By: Jared Guzman on 11-18-2023 Creatinine [Mass/Vol] 0.86 mg/dL 0.55-1.02 [facility] Comment on above: The validity of the calculated GFR & GFRAA in patients over 70 years has not been determined. Clinical correlation is essential. Serum or plasma urea nitroge n measurement (mass/volume)Ordered By: Jared Guzman on 11-18-2023 Urea nitrogen [Mass/Vol] 25 mg/dL 7-18 [facility] Serum tissue transglutaminas e IgA antibody assay (units/volume)Ordered By: Jared Guzman on 11-18-2023 tTG IgA Qn (S) <2 U/mL 0-3 [facility] Comment on above: Negative 0 - 3 Weak Positive 4 - 10 Positive >10 Tissue Transglutaminase (tTG) has been identified as the endomysial antigen. Studies have demonstr- ated that endomysial IgA antibodies have over 99% specificity for gluten sensitive enteropathy. Thin prep Papanicolaou smear with manual screeningOrdered By: Jared Guzman on 11-18-2023 Thin prep Papanicolaou smear with manual screening 11 U/L 15-37 [facility] Thin prep Papanicolaou smear with manual screening 8 5-15 [facility] CNOVon 11-17-2023 CNOV Office Visit (GSTNOR ) -------- WILL JACINTO ([id number]) 1965 F Date Time Provider Department 11/17/23 9:40 AM ELDA REAVES During your visit today, we recorded the following information about you: Pulse Blood pressure 77/minute 124/58 Elda Reaves PA-C 11/17/2023 10:00 AM Signed CHIEF COMPLAINT: Patient presents with: Nausea AND Vomiting HPI: Resident at [facility], SNF and rehab. Will Jacinto is a 58 year old adult with PMHx positive for anxiety, bipolar, HTN, HLD, DM II who presents for Nausea AND Vomiting. On Protonix 40 mg daily. Recent [facility] admission 2/2 complications from DM, hypoglycemia, altered [...] bedtime. No (more content not included)... Normal [facility] Absolute lymphocyte countOrd ered By: Jared Guzman on 10-26-2023 Lymphocytes Auto (Unsp spec) [#/Vol] 1.95 10*3/uL 0.83-4.51 [facility] Basophil percentageOrdered B y: Jared Guzman on 10-26-2023 Basophils/100 WBC (Bld) 0.5 % 0-1 [facility] Chloride [Moles/Vol] 107 mmol/L 98-107 [facility] Eosinophils/100 WBC (Bld) 3.4 % 0-5 [facility] Glucose [Mass/Vol] 279 mg/dL 74-106 [facility] Comment on above: Glucose result great er than or equal to 200 mg/dLsuggests DIABETES MELLITUS per A.D.A. criteria. Neutrophils (Bld) [#/Vol] 3.6 10*3/uL 2.0-7.7 [facility] Neutrophils/100 WBC (Bld) 57.8 % 47-70 [facility] Potassium [Moles/Vol] 4.9 mmol/L 3.5-5.1 [facility] Sodium [Moles/Vol] 138 mmol/L 136-145 [facility] WBC (Bld) [#/Vol] 6.2 10*3/uL 4.4-11.0 [facility] Blood erythrocytes count (nu mber/volume)Ordered By: Jared Guzman on 10-26-2023 RBC (Bld) [#/Vol] 3.47 10*6/uL 4.2-5.4 [facility] Blood hemoglobin measurement (mass/volume)Ordered By: Jared Guzman on 10-26-2023 Hemoglobin (Bld) [Mass/Vol] 9.6 g/dL 12.0-15.0 [facility] Blood lymphocytes/100 leukoc ytesOrdered By: Jared Guzman on 10-26-2023 Lymphocytes/100 WBC (Bld) 31.3 % 19-41 [facility] Blood monocytes/100 leukocyt esOrdered By: Jared Guzman on 10-26-2023 Monocytes/100 WBC (Bld) 6.4 % 0-10 [facility] Blood platelet mean volumeOr dered By: Jared Guzman on 10-26-2023 Platelet mean volume (Bld) [Entitic vol] 10.3 fL 6.2-12.0 [facility] Determination of erythrocyte mean corpuscular volume (MCV)Ordered By: Jared Guzman on 10-26-2023 MCV (RBC) [Entitic vol] 89.6 fL 81-99 [facility] Hematocrit Auto (Bld) [Volum e fraction]Ordered By: Jared Guzman on 10-26-2023 Hematocrit (Bld) [Volume fraction] 31.1 % 37-47 [facility] Laboratory - Chemistry and C hemistry - challengeOrdered By: Jared Guzman on 10-26-2023 CO2 [Moles/Vol] 25.0 mmol/L 21.0-32.0 [facility] Urea nitrogen/Creatinine [Mass ratio] 26.6 mg/mg 10-20 [facility] Laboratory - Hematology and Cell countsOrdered By: Jared Guzman on 10-26-2023 Erythrocyte distribution width (RBC) [Entitic vol] 47.2 fL 35.1-43.9 [facility] Erythrocyte distribution width (RBC) [Ratio] 14.6 % 11.6-14.6 [facility] Immature granulocytes/100 WBC (Bld) 0.600 % 0.0-0.9 [facility] Comment on above: IG% - Immature Granu locytes (promyelocytes, myelocytes and metamyelocytes) > 1% indicates that a LEFT SHIFT is Present. MCH (RBC) [Entitic mass] 27.7 pg 27.0-32.0 [facility] Nucleated RBC/100 WBC (Bld) [Ratio] 0 % 0-5 [facility] Auto (RBC) [Mass/Vol]Or dered By: Jared Guzman on 10-26-2023 MCHC (RBC) [Mass/Vol] 30.9 g/dL 32-36 [facility] No Panel InformationOrdered By: Jarde Guzman on 10-26-2023 Estimated GFR (MDRD) Amer 87 mL/min >60 [facility] Comment on above: GFR Calc Estimated GFR (MDRD) Non-Af Amer 72 mL/min >60 [facility] Comment on above: Non- GFR Calc Platelets bldOrdered By: Pet er Karely on 10-26-2023 Platelets (Bld) [#/Vol] 355 10*3/uL 150-450 [facility] Serum or plasma calcium mauricio urement (mass/volume)Ordered By: Jared Guzman on 10-26-2023 Calcium [Mass/Vol] 9.0 mg/dL 8.5-10.1 [facility] Serum or plasma creatinine m easurement (mass/volume)Ordered By: Jared Guzman on 10-26-2023 Creatinine [Mass/Vol] 0.87 mg/dL 0.55-1.02 [facility] Comment on above: The validity of the calculated GFR & GFRAA in patients over 70 years has not been determined. Clinical correlation is essential. Serum or plasma urea nitroge n measurement (mass/volume)Ordered By: Jared Guzman on 10-26-2023 Urea nitrogen [Mass/Vol] 23 mg/dL 7-18 [facility] Thin prep Papanicolaou smear with manual screeningOrdered By: Jared Guzman on 10-26-2023 Thin prep Papanicolaou smear with manual screening 6 5-15 [facility] Laboratory - Chemistry and C hemistry - challengeon 10-16-2023 Glucose [Mass/Vol] 289 mg/dL High 70 - 100 mg/dL [facility] Glucose [Mass/Vol] 346 mg/dL High 70 - 100 mg/dL [facility] Glucose [Mass/Vol] 304 mg/dL High 70 - 100 mg/dL [facility] Glucose [Mass/Vol] 312 mg/dL High 70 - 100 mg/dL [facility] No Panel Informationon 12-09 -2023 Interpretation and review of laboratory results Abnormal [facility] [place] Interpretation and review of laboratory results Abnormal [facility] [place] Interpretation and review of laboratory results Abnormal [facility] [place] Interpretation and review of laboratory results Abnormal [facility] [place] Glucose (Bld) [Mass/Vol]Orde red By: Eva Dalal on 10-15-2023 Glucose [Mass/Vol] 473 mg/dL Critically high 70 - 1 00 mg/dL [facility] Interpretation and review of laboratory results Abnormal [facility] Glucose (Bld) [Mass/Vol]Orde red By: Diane Islas on 10-15-2023 Glucose [Mass/Vol] 528 mg/dL Critically high 70 - 1 00 mg/dL [facility] Interpretation and review of laboratory results Abnormal [facility] Laboratory - Chemistry and C hemistry - challengeon 10-15-2023 Glucose [Mass/Vol] 262 mg/dL High 70 - 100 mg/dL [facility] Glucose [Mass/Vol] 289 mg/dL High 70 - 100 mg/dL [facility] Glucose [Mass/Vol] mg/dL High 70 - 100 mg/dL [facility] Glucose [Mass/Vol] mg/dL High 70 - 100 mg/dL [facility] No Panel Informationon 10-15 Interpretation and review of laboratory results Abnormal [facility] [place] Interpretation and review of laboratory results Abnormal [facility] [place] Interpretation and review of laboratory results Abnormal [facility] [place] Interpretation and review of laboratory results Abnormal [facility] [place] Bacteria identified Cx Nom ( Bld)on 10-14-2023 Interpretation and review of laboratory results Normal [facility] [place] Basic metabolic 1998 panelon 10-14-2023 Anion gap [Moles/Vol] 7 mmol/L 3 - 13 mmol/L [facility] Calcium [Mass/Vol] 8.8 mg/dL 8.4 - 10. 4 mg/dL [facility] Chloride [Moles/Vol] 102 mmol/L 98 - 10 7 mmol/L [facility] CO2 [Moles/Vol] 25 mmol/L 22 - 30 mmol/L [facility] Creatinine [Mass/Vol] 0.98 mg/dL Male: 0.66-1.25 mg/dL; Female: 0.52-1.04 mg/dL [facility] GFR/1.73 sq M.predicted MDRD (S/P/Bld) [Vol rate/Area] 67.9 mL/min/{1.73_m2} - PINF [facility] Glucose [Mass/Vol] 250 mg/dL High 70 - 100 mg/dL [facility] Interpretation and review of laboratory results Abnormal [facility] Potassium [Moles/Vol] 3.9 mmol/L 3.5 - 5.1 mmol/L [facility] Sodium [Moles/Vol] 134 mmol/L Low 135 - 145 mmol/L [facility] Urea nitrogen [Mass/Vol] 35 mg/dL Male: 9-20 mg/dL; Female: 7-17 mg/dL [facility] Laboratory - Chemistry and C hemistry - challengeon 10-14-2023 Glucose [Mass/Vol] 305 mg/dL High 70 - 100 mg/dL [facility] Glucose [Mass/Vol] 338 mg/dL High 70 - 100 mg/dL [facility] Glucose [Mass/Vol] 360 mg/dL High 70 - 100 mg/dL [facility] Glucose [Mass/Vol] 268 mg/dL High 70 - 100 mg/dL [facility] Glucose [Mass/Vol] 235 mg/dL High 70 - 100 mg/dL [facility] Laboratory - Microbiology an d Antimicrobial susceptibilityon 10-14-2023 Bacteria identified Cx Nom (Bld) No growth at 5 days [facility] No Panel Informationon 10-14 Interpretation and review of laboratory results Abnormal [facility] [place] Interpretation and review of laboratory results Abnormal [facility] [place] Interpretation and review of laboratory results Abnormal [facility] [place] Interpretation and review of laboratory results Abnormal [facility] [place] Interpretation and review of laboratory results Abnormal [facility] [place] Basic metabolic 1998 panelon 10-13-2023 Anion gap [Moles/Vol] 10 mmol/L 3 - 13 mmol/L [facility] Calcium [Mass/Vol] 8.5 mg/dL 8.4 - 10. 4 mg/dL [facility] Chloride [Moles/Vol] 95 mmol/L Low 98 - 10 7 mmol/L [facility] CO2 [Moles/Vol] 24 mmol/L 22 - 30 mmol/L [facility] Creatinine [Mass/Vol] 1.28 mg/dL Male: 0.66-1.25 mg/dL; Female: 0.52-1.04 mg/dL [facility] GFR/1.73 sq M.predicted MDRD (S/P/Bld) [Vol rate/Area] 49.3 mL/min/{1.73_m2} Low - PINF [facility] Glucose [Mass/Vol] 383 mg/dL High 70 - 100 mg/dL [facility] Interpretation and review of laboratory results Abnormal [facility] Potassium [Moles/Vol] 3.8 mmol/L 3.5 - 5.1 mmol/L [facility] Sodium [Moles/Vol] 129 mmol/L Low 135 - 145 mmol/L [facility] Urea nitrogen [Mass/Vol] 44 mg/dL Male: 9-20 mg/dL; Female: 7-17 mg/dL [facility] CBC panel Auto (Bld)on 10-13 Erythrocyte distribution width (RBC) [Ratio] 14.7 % High 11.5 - 14.5 % [facility] Hematocrit (Bld) [Volume fraction] 31.7 % Male: 40.0-52.0 %; Female: 35.0-47.0 % [facility] Hemoglobin (Bld) [Mass/Vol] 10.5 g/dL Low 11.7 - 18.0 g/dL [facility] Interpretation and review of laboratory results Abnormal [facility] MCH (RBC) [Entitic mass] 28.1 pg 26.0 - 34.0 pg [facility] MCHC (RBC) [Mass/Vol] 33.1 % 32.0 - 36.0 % [facility] MCV (RBC) [Entitic vol] 84.9 fL 80.0 - 98.0 fL [facility] Platelet mean volume (Bld) [Entitic vol] 7.4 fL 7.4 - 12.4 fL [facility] Platelets (Bld) [#/Vol] 324 10*3/uL 140 - 440 10*3/uL [facility] RBC (Bld) [#/Vol] 3.73 10*6/uL Male: 4.40-5.90; Female: 3.80-5.20 [facility] WBC (Bld) [#/Vol] 9.1 10*3/uL 3.6 - 10.7 10*3/uL [facility] Laboratory - Chemistry and C hemistry - challengeon 10-13-2023 Glucose [Mass/Vol] 232 mg/dL High 70 - 100 mg/dL [facility] [facility] Glucose [Mass/Vol] 243 mg/dL High 70 - 100 mg/dL [facility] Glucose [Mass/Vol] 241 mg/dL High 70 - 100 mg/dL [facility] Glucose [Mass/Vol] 311 mg/dL High 70 - 100 mg/dL [facility] Glucose [Mass/Vol] 446 mg/dL High 70 - 100 mg/dL [facility] Glucose [Mass/Vol] 435 mg/dL High 70 - 100 mg/dL [facility] Magnesium [Mass/Vol] 1.7 mg/dL 1.6 - 2 .3 mg/dL [facility] Magnesium [Mass/Vol]on 10-13 Interpretation and review of laboratory results Normal [facility] No Panel Informationon 10-13 Interpretation and review of laboratory results Abnormal [facility] [place] Interpretation and review of laboratory results Abnormal [facility] [place] Interpretation and review of laboratory results Abnormal [facility] [place] Interpretation and review of laboratory results Abnormal [facility] [place] Interpretation and review of laboratory results Abnormal [facility] [place] Interpretation and review of laboratory results Abnormal [facility] Bacteria identified Cx Nom ( Bld)on 10-12-2023 Interpretation and review of laboratory results Normal [facility] [place] Basic metabolic 1998 panelon 10-12-2023 Anion gap [Moles/Vol] 10 mmol/L 3 - 13 mmol/L [facility] Calcium [Mass/Vol] 9.4 mg/dL 8.4 - 10. 4 mg/dL [facility] Chloride [Moles/Vol] 97 mmol/L Low 98 - 10 7 mmol/L [facility] CO2 [Moles/Vol] 24 mmol/L 22 - 30 mmol/L [facility] Creatinine [Mass/Vol] 0.98 mg/dL Male: 0.66-1.25 mg/dL; Female: 0.52-1.04 mg/dL [facility] GFR/1.73 sq M.predicted MDRD (S/P/Bld) [Vol rate/Area] 67.9 mL/min/{1.73_m2} - PINF [facility] Glucose [Mass/Vol] 401 mg/dL High 70 - 100 mg/dL [facility] Interpretation and review of laboratory results Abnormal [facility] Potassium [Moles/Vol] 4.5 mmol/L 3.5 - 5.1 mmol/L [facility] Sodium [Moles/Vol] 131 mmol/L Low 135 - 145 mmol/L [facility] Urea nitrogen [Mass/Vol] 25 mg/dL Male: 9-20 mg/dL; Female: 7-17 mg/dL [facility] CBC panel Auto (Bld)Ordered By: Ioana Arriaga on 10-12-2023 Erythrocyte distribution width (RBC) [Ratio] 14.8 % High 11.5 - 14.5 % [facility] Hematocrit (Bld) [Volume fraction] 37.5 % Male: 40.0-52.0 %; Female: 35.0-47.0 % [facility] Hemoglobin (Bld) [Mass/Vol] 12.4 g/dL 11.7 - 18.0 g/dL [facility] Interpretation and review of laboratory results Abnormal [facility] MCH (RBC) [Entitic mass] 28.1 pg 26.0 - 34.0 pg [facility] MCHC (RBC) [Mass/Vol] 33.0 % 32.0 - 36.0 % [facility] MCV (RBC) [Entitic vol] 85.1 fL 80.0 - 98.0 fL [facility] Platelet mean volume (Bld) [Entitic vol] 7.5 fL 7.4 - 12.4 fL [facility] Platelets (Bld) [#/Vol] 355 10*3/uL 140 - 440 10*3/uL [facility] RBC (Bld) [#/Vol] 4.40 10*6/uL Male: 4.40-5.90; Female: 3.80-5.20 [facility] WBC (Bld) [#/Vol] 7.4 10*3/uL 3.6 - 10.7 10*3/uL [facility] Laboratory - Chemistry and C hemistry - challengeon 10-12-2023 Glucose [Mass/Vol] 359 mg/dL High 70 - 100 mg/dL [facility] Glucose [Mass/Vol] 327 mg/dL High 70 - 100 mg/dL [facility] Glucose [Mass/Vol] 364 mg/dL High 70 - 100 mg/dL [facility] Glucose [Mass/Vol] 304 mg/dL High 70 - 100 mg/dL [facility] Glucose [Mass/Vol] 411 mg/dL High 70 - 100 mg/dL [facility] Glucose [Mass/Vol] 387 mg/dL High 70 - 100 mg/dL [facility] Laboratory - Microbiology an d Antimicrobial susceptibilityon 10-12-2023 Bacteria identified Cx Nom (Bld) No growth at 5 days [facility] No Panel Informationon 10-12 Interpretation and review of laboratory results Abnormal [facility] [place] Interpretation and review of laboratory results Abnormal [facility] [place] Interpretation and review of laboratory results Abnormal [facility] Interpretation and review of laboratory results Abnormal [facility] [place] Interpretation and review of laboratory results Abnormal [facility] [place] Interpretation and review of laboratory results Abnormal [facility] [place] XR Chest Single viewon 10-12 [facility] RADIOLOGY [facility] Radiology Study observation (narrative) [facility] XR Chest Single viewOrdered By: Alejandro Mooney on 10-12-2023 [facility] Work Phone: Bacteria identified Cx Nom ( Bld)Ordered By: Nayeli Reyna on 10-11-2023 Interpretation and review of laboratory results Abnormal [facility] [place] CBC panel Auto (Bld)Ordered By: Alonzo Lee on 10-11-2023 Erythrocyte distribution width (RBC) [Ratio] 14.8 % High 11.5 - 14.5 % [facility] Hematocrit (Bld) [Volume fraction] 32.1 % Male: 40.0-52.0 %; Female: 35.0-47.0 % [facility] Hemoglobin (Bld) [Mass/Vol] 10.9 g/dL Low 11.7 - 18.0 g/dL [facility] Interpretation and review of laboratory results Abnormal [facility] MCH (RBC) [Entitic mass] 28.5 pg 26.0 - 34.0 pg [facility] MCHC (RBC) [Mass/Vol] 33.8 % 32.0 - 36.0 % [facility] MCV (RBC) [Entitic vol] 84.2 fL 80.0 - 98.0 fL [facility] Platelet mean volume (Bld) [Entitic vol] 7.9 fL 7.4 - 12.4 fL [facility] Platelets (Bld) [#/Vol] 347 10*3/uL 140 - 440 10*3/uL [facility] RBC (Bld) [#/Vol] 3.82 10*6/uL Male: 4.40-5.90; Female: 3.80-5.20 [facility] WBC (Bld) [#/Vol] 9.4 10*3/uL 3.6 - 10.7 10*3/uL [facility] Comprehensive metabolic 1998 panelon 10-11-2023 Albumin [Mass/Vol] 3.8 g/dL 3.5 - 5.0 g/dL [facility] ALP [Catalytic activity/Vol] 143 U/L High 38 - 126 U/L [facility] ALT [Catalytic activity/Vol] 28 U/L Male: 0-49 U/L; Female: 0-34 U/L [facility] Anion gap [Moles/Vol] 12 mmol/L 3 - 13 mmol/L [facility] AST [Catalytic activity/Vol] 20 U/L 15 - 46 U/L [facility] Bilirubin [Mass/Vol] 0.7 mg/dL 0.2 - 1 .3 mg/dL [facility] Calcium [Mass/Vol] 8.7 mg/dL 8.4 - 10. 4 mg/dL [facility] Chloride [Moles/Vol] 95 mmol/L Low 98 - 10 7 mmol/L [facility] CO2 [Moles/Vol] 22 mmol/L 22 - 30 mmol/L [facility] Creatinine [Mass/Vol] 1.30 mg/dL Male: 0.66-1.25 mg/dL; Female: 0.52-1.04 mg/dL [facility] GFR/1.73 sq M.predicted MDRD (S/P/Bld) [Vol rate/Area] 48.4 mL/min/{1.73_m2} Low - PINF [facility] Glucose [Mass/Vol] 397 mg/dL High 70 - 100 mg/dL [facility] Potassium [Moles/Vol] 4.2 mmol/L 3.5 - 5.1 mmol/L [facility] Protein [Mass/Vol] 6.5 g/dL 6.3 - 8.2 g/dL [facility] Sodium [Moles/Vol] 128 mmol/L Low 135 - 145 mmol/L [facility] Urea nitrogen [Mass/Vol] 28 mg/dL Male: 9-20 mg/dL; Female: 7-17 mg/dL [facility] Creatinine (U) [Mass/Vol]on 10-11-2023 CREATININE, URINE 10.6 mg/dL No Range [facility] Glucose (Bld) [Mass/Vol]Orde red By: Anna Figueroa on 10-11-2023 Glucose [Mass/Vol] 522 mg/dL Critically high 70 - 1 00 mg/dL [facility] Interpretation and review of laboratory results Abnormal [facility] Laboratory - Chemistry and C hemistry - challengeon 10-11-2023 Glucose [Mass/Vol] 401 mg/dL High 70 - 100 mg/dL [facility] Sodium (24H U) [Mass/Vol] 71 mmol/L 30 - 90 mmol/L [facility] Glucose [Mass/Vol] mg/dL High 70 - 100 mg/dL [facility] Glucose [Mass/Vol] mg/dL High 70 - 100 mg/dL [facility] Glucose [Mass/Vol] 447 mg/dL High 70 - 100 mg/dL [facility] Glucose [Mass/Vol] 354 mg/dL High 70 - 100 mg/dL [facility] Magnesium [Mass/Vol] 1.3 mg/dL Low 1.6 - 2 .3 mg/dL [facility] Glucose [Mass/Vol] 386 mg/dL High 70 - 100 mg/dL [facility] Laboratory - Microbiology an d Antimicrobial susceptibilityOrdered By: Nayeli Reyna on 10-11-2023 Bacteria identified Cx Nom (Bld) Acinetobacter lwoffii Critically abnormal [facility] No Panel Informationon 10-11 Interpretation and review of laboratory results Abnormal [facility] [place] Interpretation and review of laboratory results Normal [facility] OSMOLALITY, URINE 318 [facility] Interpretation and review of laboratory results Normal [facility] Interpretation and review of laboratory results Abnormal [facility] Interpretation and review of laboratory results Abnormal [facility] Interpretation and review of laboratory results Abnormal [facility] [place] Interpretation and review of laboratory results Abnormal [facility] [place] Interpretation and review of laboratory results Abnormal [facility] Interpretation and review of laboratory results Abnormal [facility] [place] Glucose (Bld) [Mass/Vol]Orde red By: Abner Vieyra on 10-10-2023 Glucose [Mass/Vol] 45 mg/dL Critically low 70 - 10 0 mg/dL [facility] Interpretation and review of laboratory results Abnormal [facility] Laboratory - Chemistry and C hemistry - challengeon 10-10-2023 Glucose [Mass/Vol] 404 mg/dL High 70 - 100 mg/dL [facility] Glucose [Mass/Vol] 405 mg/dL High 70 - 100 mg/dL [facility] Glucose [Mass/Vol] 353 mg/dL High 70 - 100 mg/dL [facility] Glucose [Mass/Vol] 253 mg/dL High 70 - 100 mg/dL [facility] Glucose [Mass/Vol] 254 mg/dL High 70 - 100 mg/dL [facility] Glucose [Mass/Vol] 258 mg/dL High 70 - 100 mg/dL [facility] Glucose [Mass/Vol] 248 mg/dL High 70 - 100 mg/dL [facility] Glucose [Mass/Vol] 101 mg/dL High 70 - 100 mg/dL [facility] Glucose [Mass/Vol] 67 mg/dL Low 70 - 100 mg/dL [facility] Glucose [Mass/Vol] mg/dL Low 70 - 100 mg/dL [facility] Glucose [Mass/Vol] mg/dL Low 70 - 100 mg/dL [facility] No Panel Informationon 10-10 Interpretation and review of laboratory results Abnormal [facility] Interpretation and review of laboratory results Abnormal [facility] [place] Interpretation and review of laboratory results Abnormal [facility] [place] Interpretation and review of laboratory results Abnormal [facility] [place] Interpretation and review of laboratory results Abnormal [facility] [place] Interpretation and review of laboratory results Abnormal [facility] [place] Interpretation and review of laboratory results Abnormal [facility] [place] Interpretation and review of laboratory results Abnormal [facility] [place] Interpretation and review of laboratory results Abnormal [facility] [place] Interpretation and review of laboratory results Abnormal [facility] [place] Interpretation and review of laboratory results Abnormal [facility] [place] Bacteria identified Cx Nom ( U)Ordered By: Tessy Gonzalez on 10-09-2023 Interpretation and review of laboratory results Normal [facility] Basic metabolic 1998 panelon 10-09-2023 Anion gap [Moles/Vol] 9 mmol/L 3 - 13 mmol/L [facility] Calcium [Mass/Vol] 8.7 mg/dL 8.4 - 10. 4 mg/dL [facility] Chloride [Moles/Vol] 98 mmol/L 98 - 10 7 mmol/L [facility] CO2 [Moles/Vol] 23 mmol/L 22 - 30 mmol/L [facility] Creatinine [Mass/Vol] 0.76 mg/dL Male: 0.66-1.25 mg/dL; Female: 0.52-1.04 mg/dL [facility] GFR/1.73 sq M.predicted MDRD (S/P/Bld) [Vol rate/Area] - PINF [facility] Glucose [Mass/Vol] 344 mg/dL High 70 - 100 mg/dL [facility] Interpretation and review of laboratory results Abnormal [facility] Potassium [Moles/Vol] 4.5 mmol/L 3.5 - 5.1 mmol/L [facility] Sodium [Moles/Vol] 130 mmol/L Low 135 - 145 mmol/L [facility] Urea nitrogen [Mass/Vol] 23 mg/dL Male: 9-20 mg/dL; Female: 7-17 mg/dL [facility] Laboratory - Chemistry and C hemistry - challengeon 10-09-2023 Glucose [Mass/Vol] 117 mg/dL High 70 - 100 mg/dL [facility] Glucose [Mass/Vol] 82 mg/dL 70 - 100 mg/dL [facility] Glucose [Mass/Vol] 176 mg/dL High 70 - 100 mg/dL [facility] Glucose [Mass/Vol] 210 mg/dL High 70 - 100 mg/dL [facility] Glucose [Mass/Vol] 207 mg/dL High 70 - 100 mg/dL [facility] Glucose [Mass/Vol] 318 mg/dL High 70 - 100 mg/dL [facility] Glucose [Mass/Vol] 377 mg/dL High 70 - 100 mg/dL [facility] Glucose [Mass/Vol] 337 mg/dL High 70 - 100 mg/dL [facility] Average glucose Estimated from glycated hemoglobin (Bld) [Mass/Vol] 174 mg/dL [facility] Laboratory - Drug toxicology on 10-09-2023 Vancomycin [Mass/Vol] 11.5 ug/mL Low 15.0 - 20.0 ug/mL [facility] Laboratory - Hematology and Cell countson 10-09-2023 HbA1c (Bld) [Mass fraction] 7.7 % High NINF - 5.7 % [facility] Laboratory - Microbiology an d Antimicrobial susceptibilityOrdered By: Tessy Gonzalez on 10-09-2023 Bacteria identified Cx Nom (U) No growth (<1,000 CFU/mL) [facility] No Panel Informationon 10-09 Interpretation and review of laboratory results Abnormal [facility] [place] Interpretation and review of laboratory results Normal [facility] [place] Interpretation and review of laboratory results Abnormal [facility] [place] Interpretation and review of laboratory results Abnormal [facility] [place] Interpretation and review of laboratory results Abnormal [facility] [place] Interpretation and review of laboratory results Abnormal [facility] [place] Interpretation and review of laboratory results Abnormal [facility] [place] Interpretation and review of laboratory results Abnormal [facility] [place] Interpretation and review of laboratory results Abnormal [facility] Interpretation and review of laboratory results Abnormal [facility] Basic metabolic 1998 panelon 10-08-2023 Anion gap [Moles/Vol] 8 mmol/L 3 - 13 mmol/L [facility] Calcium [Mass/Vol] 8.1 mg/dL Low 8.4 - 10. 4 mg/dL [facility] Chloride [Moles/Vol] 100 mmol/L 98 - 10 7 mmol/L [facility] CO2 [Moles/Vol] 22 mmol/L 22 - 30 mmol/L [facility] Creatinine [Mass/Vol] 1.09 mg/dL Male: 0.66-1.25 mg/dL; Female: 0.52-1.04 mg/dL [facility] GFR/1.73 sq M.predicted MDRD (S/P/Bld) [Vol rate/Area] 59.7 mL/min/{1.73_m2} Low - PINF [facility] Glucose [Mass/Vol] 288 mg/dL High 70 - 100 mg/dL [facility] Potassium [Moles/Vol] 4.2 mmol/L 3.5 - 5.1 mmol/L [facility] Sodium [Moles/Vol] 130 mmol/L Low 135 - 145 mmol/L [facility] Urea nitrogen [Mass/Vol] 34 mg/dL Male: 9-20 mg/dL; Female: 7-17 mg/dL [facility] CBC W Auto Differential pane l (Bld)Ordered By: Sixto Yao on 10-08-2023 Basophils (Bld) [#/Vol] 0.1 10*3/uL 0.0 - 0.2 10*3/uL [facility] Basophils/100 WBC (Bld) 0.8 % 0.0 - 2.0 % [facility] Eosinophils (Bld) [#/Vol] 0.1 10*3/uL 0.0 - 0.5 10*3/uL [facility] Eosinophils/100 WBC (Bld) 0.9 % Low 1.0 - 6.0 % [facility] Erythrocyte distribution width (RBC) [Ratio] 15.7 % High 11.5 - 14.5 % [facility] Hematocrit (Bld) [Volume fraction] 31.6 % Male: 40.0-52.0 %; Female: 35.0-47.0 % [facility] Hemoglobin (Bld) [Mass/Vol] 10.6 g/dL Low 11.7 - 18.0 g/dL [facility] Interpretation and review of laboratory results Abnormal [facility] Lymphocytes (Bld) [#/Vol] 2.7 10*3/uL 1.0 - 4.3 10*3/uL [facility] Lymphocytes/100 WBC (Bld) 26.5 % 20.0 - 40.0 % [facility] MCH (RBC) [Entitic mass] 28.5 pg 26.0 - 34.0 pg [facility] MCHC (RBC) [Mass/Vol] 33.5 % 32.0 - 36.0 % [facility] MCV (RBC) [Entitic vol] 84.9 fL 80.0 - 98.0 fL [facility] Monocytes (Bld) [#/Vol] 0.7 10*3/uL 0.0 - 0.8 10*3/uL [facility] Monocytes/100 WBC (Bld) 7.3 % 2.0 - 10.0 % [facility] Neutrophils (Bld) [#/Vol] 6.5 10*3/uL 1.8 - 7.0 10*3/uL [facility] Neutrophils/100 WBC (Bld) 64.5 % 40.0 - 80.0 % [facility] Nucleated RBC/100 WBC (Bld) [Ratio] 0.1 % [facility] Platelet mean volume (Bld) [Entitic vol] 8.3 fL 7.4 - 12.4 fL [facility] Platelets (Bld) [#/Vol] 339 10*3/uL 140 - 440 10*3/uL [facility] RBC (Bld) [#/Vol] 3.72 10*6/uL Male: 4.40-5.90; Female: 3.80-5.20 [facility] WBC (Bld) [#/Vol] 10.1 10*3/uL 3.6 - 10.7 10*3/uL [facility] CT Abdomen and Pelvis W cont rast Erica 10-08-2023 [facility] Radiology Study observation (narrative) [facility] CT Abdomen and Pelvis W cont rast IVOrdered By: Bao Hill on 10-08-2023 [facility] Work Phone: Hepatic function 2000 panelo n 10-08-2023 Albumin [Mass/Vol] 3.2 g/dL Low 3.5 - 5.0 g/dL [facility] ALP [Catalytic activity/Vol] 143 U/L High 38 - 126 U/L [facility] ALT [Catalytic activity/Vol] 42 U/L Male: 0-49 U/L; Female: 0-34 U/L [facility] AST [Catalytic activity/Vol] 33 U/L 15 - 46 U/L [facility] Bilirubin [Mass/Vol] 0.9 mg/dL 0.2 - 1 .3 mg/dL [facility] Bilirubin.conjugated [Mass/Vol] 0.0 mg/dL 0.0 - 0.3 mg/dL [facility] Protein [Mass/Vol] 5.9 g/dL Low 6.3 - 8.2 g/dL [facility] Laboratory - Chemistry and C hemistry - challengeon 10-08-2023 Glucose [Mass/Vol] 373 mg/dL High 70 - 100 mg/dL [facility] Glucose [Mass/Vol] 348 mg/dL High 70 - 100 mg/dL [facility] Glucose [Mass/Vol] 386 mg/dL High 70 - 100 mg/dL [facility] Glucose [Mass/Vol] 271 mg/dL High 70 - 100 mg/dL [facility] Ammonia (P) [Moles/Vol] 29 umol/L 9 - 30 umol/L [facility] MRSA DNA YASIR+probe Ql (Nose) on 10-08-2023 Interpretation and review of laboratory results Abnormal [facility] mecA gene Detected Abnormal Not Detected [facility] Staphylococcus aureus Detected Abnormal Not Detected [facility] [place] No Panel Informationon 10-08 Interpretation and review of laboratory results Abnormal [facility] [place] Interpretation and review of laboratory results Abnormal [facility] [place] Interpretation and review of laboratory results Abnormal [facility] [place] Interpretation and review of laboratory results Abnormal [facility] [place] Interpretation and review of laboratory results Abnormal [facility] Interpretation and review of laboratory results Normal [facility] No Panel InformationOrdered By: Memo Bergman on 10-08-2023 Targets Detected Not detected [facility] Abdomen limitedon 023 [facility] [place] [facility] Radiology Study observation (narrative) [facility] Abdomen limitedOrdered By : Javy Urias on 10-08-2023 [facility] Work Phone: CBC W Auto Differential pane l (Bld)Ordered By: Olamide Espino on 10-07-2023 Basophils (Bld) [#/Vol] 0.0 10*3/uL 0.0 - 0.2 10*3/uL [facility] Basophils/100 WBC (Bld) 0.2 % 0.0 - 2.0 % [facility] Eosinophils (Bld) [#/Vol] 0.0 10*3/uL 0.0 - 0.5 10*3/uL [facility] Eosinophils/100 WBC (Bld) 0.2 % Low 1.0 - 6.0 % [facility] Erythrocyte distribution width (RBC) [Ratio] 14.2 % 11.5 - 14.5 % [facility] Hematocrit (Bld) [Volume fraction] 41.5 % Male: 40.0-52.0 %; Female: 35.0-47.0 % [facility] Hemoglobin (Bld) [Mass/Vol] 13.2 g/dL 11.7 - 18.0 g/dL [facility] Immature granulocytes (Bld) [#/Vol] 0.1 10*3/uL High NINF - 0.0 10*3/uL [facility] Immature granulocytes/100 WBC (Bld) 0.8 % High NINF - 0.0 % [facility] Interpretation and review of laboratory results Abnormal [facility] Lymphocytes (Bld) [#/Vol] 1.0 10*3/uL 1.0 - 4.3 10*3/uL [facility] Lymphocytes/100 WBC (Bld) 7.5 % Low 20.0 - 40.0 % [facility] MCH (RBC) [Entitic mass] 27.8 pg 26.0 - 34.0 pg [facility] MCHC (RBC) [Mass/Vol] 31.8 % Low 32.0 - 36.0 % [facility] MCV (RBC) [Entitic vol] 87.4 fL 80.0 - 98.0 fL [facility] Monocytes (Bld) [#/Vol] 0.8 10*3/uL 0.0 - 0.8 10*3/uL [facility] Monocytes/100 WBC (Bld) 5.9 % 2.0 - 10.0 % [facility] Neutrophils (Bld) [#/Vol] 11.3 10*3/uL High 1.8 - 7.0 10*3/uL [facility] Neutrophils/100 WBC (Bld) 85.4 % High 40.0 - 80.0 % [facility] rocket staff Platelet mean volume (Bld) [Entitic vol] 9.4 fL 7.4 - 12.4 fL [facility] rocket staff Platelets (Bld) [#/Vol] 438 10*3/uL 140 - 440 10*3/uL [facility] rocket staff RBC (Bld) [#/Vol] 4.75 10*6/uL Male: 4.40-5.90; Female: 3.80-5.20 [facility] WBC (Bld) [#/Vol] 13.3 10*3/uL High 3.6 - 10.7 10*3/uL [facility] CT Head WO contraston 2022 Mild parenchymal vol ume loss. No evidence of acute intracranial process. 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 Report Dictated on Electronically Signed By: Angel Randhawa MD Electronically Signed Date/Time: 10/07/2023 7:47 AM EST [facility] [employer] SYSTEM Patient Name: WILL ALVARADO : 1965 [...] are not adequately visualized for proper evaluation. [facility] [employer] [facility] Angel Randhawa MD - 10/07/2023 Patient Name: [...] Electronically Signed Date/Time: 10/07/2023 7:47 AM EST [facility] RADIOLOGY SYSTEM [facility] Radiology Study observation (narrative) [facility] CT Head WO contrastOrdered B y: Angel Randhawa on 10-07-2023 [facility] Work Phone: Comprehensive metabolic 1998 panelon 10-07-2023 Albumin [Mass/Vol] 4.1 g/dL 3.5 - 5.0 g/dL [facility] ALP [Catalytic activity/Vol] 133 U/L High 38 - 126 U/L [facility] ALT [Catalytic activity/Vol] 46 U/L Male: 0-49 U/L; Female: 0-34 U/L [facility] Anion gap [Moles/Vol] 11 mmol/L 3 - 13 mmol/L [facility] AST [Catalytic activity/Vol] 36 U/L 15 - 46 U/L [facility] Bilirubin [Mass/Vol] 0.4 mg/dL 0.2 - 1 .3 mg/dL [facility] Calcium [Mass/Vol] 8.8 mg/dL 8.4 - 10. 4 mg/dL [facility] Chloride [Moles/Vol] 100 mmol/L 98 - 10 7 mmol/L [facility] CO2 [Moles/Vol] 27 mmol/L 22 - 30 mmol/L [facility] Creatinine [Mass/Vol] 0.74 mg/dL Male: 0.66-1.25 mg/dL; Female: 0.52-1.04 mg/dL [facility] GFR/1.73 sq M.predicted MDRD (S/P/Bld) [Vol rate/Area] - PINF [facility] Glucose [Mass/Vol] 120 mg/dL High 70 - 100 mg/dL [facility] Interpretation and review of laboratory results Abnormal [facility] Potassium [Moles/Vol] 4.4 mmol/L 3.5 - 5.1 mmol/L [facility] Protein [Mass/Vol] 7.7 g/dL 6.3 - 8.2 g/dL [facility] Sodium [Moles/Vol] 138 mmol/L 135 - 145 mmol/L [facility] Urea nitrogen [Mass/Vol] 20 mg/dL Male: 9-20 mg/dL; Female: 7-17 mg/dL [facility] Ethanol (Bld) [Mass/Vol]on 12-07-2022 Ethanol [Mass/Vol] g/dL 0.000 - 0.010 g/dL [facility] Laboratory - Chemistry and C hemistry - challengeon 10-07-2023 Glucose [Mass/Vol] 267 mg/dL High 70 - 100 mg/dL [facility] Procalcitonin [Mass/Vol] 0.83 ng/mL High 0.00 - 0.09 ng/mL [facility] Lipase [Catalytic activity/Vol] 34 U/L 23 - 300 U/L [facility] Glucose [Mass/Vol] 176 mg/dL High 70 - 100 mg/dL [facility] Glucose [Mass/Vol] 111 mg/dL High 70 - 100 mg/dL [facility] Glucose [Mass/Vol] 81 mg/dL 70 - 100 mg/dL [facility] Glucose [Mass/Vol] 91 mg/dL 70 - 100 mg/dL [facility] Glucose [Mass/Vol] 100 mg/dL 70 - 100 mg/dL [facility] Glucose [Mass/Vol] 129 mg/dL High 70 - 100 mg/dL [facility] Glucose [Mass/Vol] 129 mg/dL [facility] Glucose [Mass/Vol] 129 mg/dL [facility] Glucose [Mass/Vol] 129 mg/dL High 70 - 100 mg/dL [facility] Glucose [Mass/Vol] 151 mg/dL [facility] Glucose [Mass/Vol] 151 mg/dL High 70 - 100 mg/dL [facility] Lactate [Moles/Vol] 1.2 mmol/L 0.7 - 2. 0 mmol/L [facility] Glucose [Mass/Vol] 100 mg/dL 70 - 100 mg/dL [facility] Glucose [Mass/Vol] 68 mg/dL Low 70 - 100 mg/dL [facility] Laboratory - Drug toxicology Ordered By: Annie Flynn on 10-07-2023 Amphetamines Screen method >1000 ng/mL Ql (U) Negative [facility] Barbiturates Screen method >200 ng/mL Ql (U) Negative [facility] Benzodiazepines Ql (U) Negative [facility] Methadone Screen Ql (U) Negative [facility] Opiates Screen Ql (U) Negative [facility] oxyCODONE Ql (U) Negative [facility] Phencyclidine Ql (U) Negative [facility] No Panel Informationon 10-07 Interpretation and review of laboratory results Abnormal [facility] Interpretation and review of laboratory results Normal [facility] Interpretation and review of laboratory results Abnormal [facility] [place] Interpretation and review of laboratory results Abnormal [facility] [place] Interpretation and review of laboratory results Normal [facility] [place] [place] Interpretation and review of laboratory results Normal [facility] [place] Interpretation and review of laboratory results Normal [facility] [place] [place] Interpretation and review of laboratory results Abnormal [facility] [place] [place] Interpretation and review of laboratory results Normal [facility] Interpretation and review of laboratory results Normal [facility] Interpretation and review of laboratory results Abnormal [facility] [place] Interpretation and review of laboratory results Normal [facility] Interpretation and review of laboratory results Abnormal [facility] [place] Interpretation and review of laboratory results Normal [facility] Interpretation and review of laboratory results Normal [facility] [place] Interpretation and review of laboratory results Abnormal [facility] [place] No Panel InformationOrdered By: Annie Flynn on 10-07-2023 COCAINE METAB. SCREEN Negative [facility] Procalcitonin [Mass/Vol]on 12-07-2022 Interpretation and review of laboratory results Abnormal [facility] [place] Respiratory pathogens DNA an d RNA panel YASIR+non-probe (Nph)on 10-07-2023 Adenovirus Not detected Not Detected [facility] B. pertussis DNA YASIR+probe Ql (Unsp spec) Not detected Not Detected [facility] Bordetella parapertussis Not detected Not Detected [facility] Chlamydia pneumoniae Not detected Not Detected [facility] Coronavirus 229E Not detected Not Detected [facility] Coronavirus HKU1 Not detected Not Detected [facility] Coronavirus NL63 Not detected Not Detected [facility] Coronavirus OC43 Not detected Not Detected [facility] FLUAV RNA YASIR+non-probe Ql (Nph) Not detected Not Detected [facility] FLUBV RNA YASIR+non-probe Ql (Nph) Not detected Not Detected [facility] Human Metapneumovirus Not detected Not Detected [facility] Human Rhinovirus/Enterovirus Not detected Not Detected [facility] Interpretation and review of laboratory results Normal [facility] Mycoplasma pneumoniae Not detected Not Detected [facility] Parainfluenza 1 Not detected Not Detected [facility] Parainfluenza 2 Not detected Not Detected [facility] Parainfluenza 3 Not detected Not Detected [facility] Parainfluenza 4 Not detected Not Detected [facility] Respiratory Syncytial Virus Not detected Not Detected [facility] SARS-CoV-2 (COVID-19) RNA YASIR+non-probe Ql (Nph) Not detected Not Detected [facility] [place] Urinalysis complete panel (U )on 10-07-2023 Bacteria LM.HPF (Urine sed) [#/Area] Negative Negative /HPF [facility] Bilirubin Ql (U) Negative Negative mg/dL [facility] Clarity (U) Clear Clear [facility] Color (U) Yellow Lt. Yellow [facility] Epithelial cells.squamous LM.HPF (Urine sed) [#/Area] Negative [facility] Glucose Ql (U) 300 mg/dL Abnormal Normal (<70) [facility] Hemoglobin Ql (U) Negative Negative mg/dL [facility] Interpretation and review of laboratory results Abnormal [facility] Ketones (U) [Mass/Vol] Negative Negat bernard mg/dL [facility] Leukocyte esterase Test strip Ql (U) Negative Negative Kat/uL [facility] Mucus LM.HPF (Urine sed) [#/Area] Few Negative /LPF [facility] Nitrite Ql (U) Negative Negative [facility] pH (U) 6.0 [pH] 5.0 - 8.0 pH [facility] Protein (U) [Mass/Vol] 300 mg/dL Abnormal Negative [facility] RBC LM.HPF (Urine sed) [#/Area] 0-2 [facility] Specific gravity (U) [Rel density] 1.023 1.005 - 1.030 [facility] Urobilinogen (U) [Mass/Vol] Normal Normal (0-1) mg/dL [facility] Volume, Urine 12 mL [facility] WBC LM.HPF (Urine sed) [#/Area] 3-5 [facility] XR Chest Single viewon 10-07 [facility] RADIOLOGY SYSTEM [facility] RADIOLOGY [facility] Radiology Study observation (narrative) [facility] Whole blood hemoglobin A1c/t otal hemoglobin ratio (mass fraction)Ordered By: Jared Guzman on 09-20-2023 HbA1c (Bld) [Mass fraction] 7.3 % 3.8-5.6 [facility] Comment on above: Normal < 5.7 % Predi abetic 5.7 - 6.4 % Diabetic >or= 6.5 % Please note range changes. Basic metabolic 1998 panelon 08-19-2023 Anion gap [Moles/Vol] 5 mmol/L 3 - 13 mmol/L [facility] Calcium [Mass/Vol] 8.4 mg/dL 8.4 - 10. 4 mg/dL [facility] Chloride [Moles/Vol] 99 mmol/L 98 - 10 7 mmol/L [facility] CO2 [Moles/Vol] 26 mmol/L 22 - 30 mmol/L [facility] Creatinine [Mass/Vol] 1.00 mg/dL Male: 0.66-1.25 mg/dL; Female: 0.52-1.04 mg/dL [facility] GFR/1.73 sq M.predicted MDRD (S/P/Bld) [Vol rate/Area] 66.3 mL/min/{1.73_m2} - PINF [facility] Comment on above: Calculation based on the Chronic Kidney Disease Epidemiology Collaboration (CKD-EPI) equation refit without adjustment for race Glucose [Mass/Vol] 223 mg/dL High 70 - 100 mg/dL [facility] Interpretation and review of laboratory results Abnormal [facility] Potassium [Moles/Vol] 4.4 mmol/L 3.5 - 5.1 mmol/L [facility] Sodium [Moles/Vol] 130 mmol/L Low 135 - 145 mmol/L [facility] Urea nitrogen [Mass/Vol] 23 mg/dL Male: 9-20 mg/dL; Female: 7-17 mg/dL [facility] CBC panel Auto (Bld)Ordered By: Joel Houston on 08-19-2023 Erythrocyte distribution width (RBC) [Ratio] 15.3 % High 11.5 - 14.5 % [facility] Hematocrit (Bld) [Volume fraction] 36.3 % Male: 40.0-52.0 %; Female: 35.0-47.0 % [facility] Hemoglobin (Bld) [Mass/Vol] 12.2 g/dL 11.7 - 18.0 g/dL [facility] Interpretation and review of laboratory results Abnormal [facility] MCH (RBC) [Entitic mass] 27.7 pg 26.0 - 34.0 pg [facility] MCHC (RBC) [Mass/Vol] 33.7 % 32.0 - 36.0 % [facility] MCV (RBC) [Entitic vol] 82.2 fL 80.0 - 98.0 fL [facility] Platelet mean volume (Bld) [Entitic vol] 7.8 fL 7.4 - 12.4 fL [facility] Platelets (Bld) [#/Vol] 402 10*3/uL 140 - 440 10*3/uL [facility] RBC (Bld) [#/Vol] 4.41 10*6/uL Male: 4.40-5.90; Female: 3.80-5.20 [facility] WBC (Bld) [#/Vol] 8.6 10*3/uL 3.6 - 10.7 10*3/uL [facility] Laboratory - Chemistry and C hemistry - challengeon 08-19-2023 Glucose [Mass/Vol] 196 mg/dL High 70 - 100 mg/dL [facility] Glucose [Mass/Vol] 255 mg/dL High 70 - 100 mg/dL [facility] [employer] Glucose [Mass/Vol] 236 mg/dL High 70 - 100 mg/dL [facility] staff No Panel Informationon 08-19 Interpretation and review of laboratory results Abnormal [facility] staff Performed by: [facility], [address] [facility] [address] CLIA ID: [id number] [facility] Interpretation and review of laboratory results Abnormal [facility] staff Performed by: [facility], [address] [facility] [address] CLIA ID: [id number] [facility] rocket staff [facility] Interpretation and review of laboratory results Abnormal [facility] staff Performed by: [facility], [address] [facility] [address] CLIA ID: [id number] [facility] rocket staff [facility] Sinus bradycardia Left bundle branch block Prolonged QT interval Compared to ECG 08/08/2023 06:58:13 Left bundle-branch block now present Electronically Signed On 08-19-2023 7:37:13 EDT by Nicolas Rose CV Nicolas Lang D O - 08/19/2023 IMPRESSION: Sinus bradycardia Left bundle branch block Prolonged QT interval Compared to ECG 08/08/2023 06:58:13 Left bundle-branch block now present Electronically Signed On 08-19-2023 7:37:13 EDT by Nicolas Rose [facility] staff No Panel InformationOrdered By: Nicolas Rose on 08-19-2023 P [place] 40 degrees [facility] Work Phone: IN Interval 194 ms [facility] Work Phone: QRS [place] -30 degrees [facility] Work Phone: QRSD Interval 140 ms [employer] Work Phone: QT Interval 632 ms [employer] Work Phone: QTC Interval 563 ms [employer] Work Phone: T Wave [place] -4 degrees [employer] Work Phone: [phone] [employer] Work Phone: Vital signsOrdered By: Harman Rose on 08-19-2023 Heart rate 48 /min bpm [employer] [facility] Work Phone: Basic metabolic 1998 panelon 08-18-2023 Anion gap [Moles/Vol] 6 mmol/L 3 - 13 mmol/L [facility] staff Calcium [Mass/Vol] 8.0 mg/dL Low 8.4 - 10. 4 mg/dL [facility] staff Chloride [Moles/Vol] 100 mmol/L 98 - 10 7 mmol/L [facility] staff CO2 [Moles/Vol] 24 mmol/L 22 - 30 mmol/L [facility] staff Creatinine [Mass/Vol] 0.76 mg/dL Male: 0.66-1.25 mg/dL; Female: 0.52-1.04 mg/dL [facility] staff GFR/1.73 sq M.predicted MDRD (S/P/Bld) [Vol rate/Area] - PINF [facility] Comment on above: Calculation based on the Chronic Kidney Disease Epidemiology Collaboration (CKD-EPI) equation refit without adjustment for race Glucose [Mass/Vol] 311 mg/dL High 70 - 100 mg/dL [facility] Interpretation and review of laboratory results Abnormal [facility] staff Potassium [Moles/Vol] 4.2 mmol/L 3.5 - 5.1 mmol/L [facility] staff Sodium [Moles/Vol] 130 mmol/L Low 135 - 145 mmol/L [facility] staff Urea nitrogen [Mass/Vol] 24 mg/dL Male: 9-20 mg/dL; Female: 7-17 mg/dL [facility] rocket staff CBC W Auto Differential pane l (Bld)Ordered By: Alex Kwok on 08-18-2023 Basophils (Bld) [#/Vol] 0.1 10*3/uL 0.0 - 0.2 10*3/uL [facility] staff Basophils/100 WBC (Bld) 0.7 % 0.0 - 2.0 % [facility] Eosinophils (Bld) [#/Vol] 0.2 10*3/uL 0.0 - 0.5 10*3/uL [facility] staff Eosinophils/100 WBC (Bld) 1.2 % 1.0 - 6.0 % [facility] Erythrocyte distribution width (RBC) [Ratio] 15.2 % High 11.5 - 14.5 % [facility] Hematocrit (Bld) [Volume fraction] 36.1 % Male: 40.0-52.0 %; Female: 35.0-47.0 % [facility] Hemoglobin (Bld) [Mass/Vol] 12.2 g/dL 11.7 - 18.0 g/dL [facility] Interpretation and review of laboratory results Abnormal [facility] Lymphocytes (Bld) [#/Vol] 2.3 10*3/uL 1.0 - 4.3 10*3/uL [facility] Lymphocytes/100 WBC (Bld) 17.5 % Low 20.0 - 40.0 % [facility] MCH (RBC) [Entitic mass] 28.2 pg 26.0 - 34.0 pg [facility] MCHC (RBC) [Mass/Vol] 33.9 % 32.0 - 36.0 % [facility] MCV (RBC) [Entitic vol] 83.0 fL 80.0 - 98.0 fL [facility] staff Monocytes (Bld) [#/Vol] 1.2 10*3/uL High 0.0 - 0.8 10*3/uL [facility] Monocytes/100 WBC (Bld) 8.8 % 2.0 - 10.0 % [facility] Neutrophils (Bld) [#/Vol] 9.5 10*3/uL High 1.8 - 7.0 10*3/uL [facility] Neutrophils/100 WBC (Bld) 71.8 % 40.0 - 80.0 % [facility] Nucleated RBC/100 WBC (Bld) [Ratio] 0.0 % [facility] Platelet mean volume (Bld) [Entitic vol] 7.7 fL 7.4 - 12.4 fL [facility] Platelets (Bld) [#/Vol] 388 10*3/uL 140 - 440 10*3/uL [facility] RBC (Bld) [#/Vol] 4.35 10*6/uL Male: 4.40-5.90; Female: 3.80-5.20 [facility] WBC (Bld) [#/Vol] 13.2 10*3/uL High 3.6 - 10.7 10*3/uL [facility] Laboratory - Chemistry and C hemistry - challengeon 08-18-2023 Glucose [Mass/Vol] 294 mg/dL High 70 - 100 mg/dL [facility] Glucose [Mass/Vol] 339 mg/dL High 70 - 100 mg/dL [facility] staff Glucose [Mass/Vol] 363 mg/dL High 70 - 100 mg/dL [facility] Glucose [Mass/Vol] 398 mg/dL High 70 - 100 mg/dL [facility] rocket staff No Panel Informationon 08-18 Interpretation and review of laboratory results Abnormal [facility] staff Performed by: [facility], [address], [facility] [address] CLIA ID: [id number] [facility] rocket staff [facility] Interpretation and review of laboratory results Abnormal [facility] Performed by: [facility], [address], [facility] [address] CLIA ID: [id number] [facility] rocket staff [facility] Interpretation and review of laboratory results Abnormal [facility] Performed by: [facility], [address], [facility] [address] CLIA ID: [id number] [facility] rocket staff [facility] Interpretation and review of laboratory results Abnormal [facility] Performed by: [facility], [address], [facility] [address] CLIA ID: [id number] [facility] staff [facility] Basophil percentageon 2022 Sodium [Moles/Vol] 132 mmol/L 136-145 [facility] Basophil percentageOrdered B y: Jared Esteveschad on 08-17-2023 Bilirubin [Mass/Vol] 0.60 mg/dL 0.20-1.00 [facility] Comment on above: For patients on eltr ombopag therapy, use of [employer]ension [place] TBIL is not recommended. Chloride [Moles/Vol] 100 mmol/L 98-107 [facility] Glucose [Mass/Vol] 240 mg/dL 74-106 [facility] Comment on above: Glucose result great er than or equal to 200 mg/dLsuggests DIABETES MELLITUS per A.D.A. criteria. Potassium [Moles/Vol] 4.3 mmol/L 3.5-5.1 [facility] Protein [Mass/Vol] 6.8 g/dL 6.4-8.2 [facility] WBC (Bld) [#/Vol] 9.3 10*3/uL 4.4-11.0 [facility] Blood erythrocytes count (nu mber/volume)Ordered By: Jared Guzman on 08-17-2023 RBC (Bld) [#/Vol] 4.64 10*6/uL 4.2-5.4 [facility] Blood hemoglobin measurement (mass/volume)Ordered By: Jared Guzman on 08-17-2023 Hemoglobin (Bld) [Mass/Vol] 12.4 g/dL 12.0-15.0 [facility] Blood platelet mean volumeOr dered By: Jared Guzman on 08-17-2023 Platelet mean volume (Bld) [Entitic vol] 9.8 fL 6.2-12.0 [facility] CBC W Auto Differential pane l (Bld)Ordered By: Bisi Bloom on 08-17-2023 Basophils (Bld) [#/Vol] 0.1 10*3/uL 0.0 - 0.2 10*3/uL [facility] Basophils/100 WBC (Bld) 0.8 % 0.0 - 2.0 % [facility] Eosinophils (Bld) [#/Vol] 0.1 10*3/uL 0.0 - 0.5 10*3/uL [facility] Eosinophils/100 WBC (Bld) 0.4 % Low 1.0 - 6.0 % [facility] Erythrocyte distribution width (RBC) [Ratio] 15.3 % High 11.5 - 14.5 % [facility] Hematocrit (Bld) [Volume fraction] 37.7 % Male: 40.0-52.0 %; Female: 35.0-47.0 % [facility] Hemoglobin (Bld) [Mass/Vol] 12.5 g/dL 11.7 - 18.0 g/dL [facility] Interpretation and review of laboratory results Abnormal [facility] Lymphocytes (Bld) [#/Vol] 3.6 10*3/uL 1.0 - 4.3 10*3/uL [facility] Lymphocytes/100 WBC (Bld) 24.4 % 20.0 - 40.0 % [facility] MCH (RBC) [Entitic mass] 27.2 pg 26.0 - 34.0 pg [facility] MCHC (RBC) [Mass/Vol] 33.1 % 32.0 - 36.0 % [facility] MCV (RBC) [Entitic vol] 82.4 fL 80.0 - 98.0 fL [facility] Monocytes (Bld) [#/Vol] 1.3 10*3/uL High 0.0 - 0.8 10*3/uL [facility] Monocytes/100 WBC (Bld) 8.5 % 2.0 - 10.0 % [facility] Neutrophils (Bld) [#/Vol] 9.7 10*3/uL High 1.8 - 7.0 10*3/uL [facility] Neutrophils/100 WBC (Bld) 65.9 % 40.0 - 80.0 % [facility] Nucleated RBC/100 WBC (Bld) [Ratio] 0.0 % [facility] Platelet mean volume (Bld) [Entitic vol] 7.5 fL 7.4 - 12.4 fL [facility] Platelets (Bld) [#/Vol] 468 10*3/uL High 140 - 440 10*3/uL [facility] RBC (Bld) [#/Vol] 4.57 10*6/uL Male: 4.40-5.90; Female: 3.80-5.20 [facility] WBC (Bld) [#/Vol] 14.7 10*3/uL High 3.6 - 10.7 10*3/uL [facility] CT Abdomen and Pelvis W cont rast [...] Electronically Signed Date/Time: 08/17/2023 4:21 PM T [employer] Patient Name: WILL ALVARADO : 1965 Exam Date/Time: 08/17/2023 15:08 Procedure: [...] and increased in size since November 2020. [facility] Milton Guy MD - 08/17/2023 Patient Name: WILL [facility]ACINTO [facility] 1965 [id number] Exam Date/Time: 08/17/2023 15:08 Procedure: CT ABDOMEN [...] Electronically Signed Date/Time: 08/17/2023 4:21 PM EDT [facility] Radiology Study observation (narrative) [facility] CT Abdomen and Pelvis W cont rast IVOrdered By: Milton Guy on 08-17-2023 [employer] Work Phone: Comprehensive metabolic 1998 panelon 08-17-2023 Albumin [Mass/Vol] 4.0 g/dL 3.5 - 5.0 g/dL [facility] ALP [Catalytic activity/Vol] 136 U/L High 38 - 126 U/L [employer] [facility] ALT [Catalytic activity/Vol] 47 U/L Male: 0-49 U/L; Female: 0-34 U/L [facility] Anion gap [Moles/Vol] 4 mmol/L 3 - 13 mmol/L [facility] AST [Catalytic activity/Vol] 29 U/L 15 - 46 U/L [facility] Bilirubin [Mass/Vol] 0.5 mg/dL 0.2 - 1 .3 mg/dL [facility] Calcium [Mass/Vol] 8.8 mg/dL 8.4 - 10. 4 mg/dL [facility] Chloride [Moles/Vol] 99 mmol/L 98 - 10 7 mmol/L [facility] CO2 [Moles/Vol] 29 mmol/L 22 - 30 mmol/L [facility] Creatinine [Mass/Vol] 0.72 mg/dL Male: 0.66-1.25 mg/dL; Female: 0.52-1.04 mg/dL [facility] GFR/1.73 sq M.predicted MDRD (S/P/Bld) [Vol rate/Area] - PINF [facility] Comment on above: Calculation based on the Chronic Kidney Disease Epidemiology Collaboration (CKD-EPI) equation refit without adjustment for race Glucose [Mass/Vol] 71 mg/dL 70 - 100 mg/dL [facility] Interpretation and review of laboratory results Abnormal [facility] Potassium [Moles/Vol] 4.8 mmol/L 3.5 - 5.1 mmol/L [facility] Protein [Mass/Vol] 7.1 g/dL 6.3 - 8.2 g/dL [facility] Urea nitrogen [Mass/Vol] 17 mg/dL Male: 9-20 mg/dL; Female: 7-17 mg/dL [facility] Determination of erythrocyte mean corpuscular volume (MCV)Ordered By: Jared Guzman on 08-17-2023 MCV (RBC) [Entitic vol] 86.6 fL 81-99 [facility] Glucose (Bld) [Mass/Vol]Orde red By: Asuncion Buchanan on 08-17-2023 Glucose [Mass/Vol] 29 mg/dL Critically low 70 - 10 0 mg/dL [facility] Interpretation and review of laboratory results Abnormal [facility] Hematocrit Auto (Bld) [Volum e fraction]Ordered By: Jared Guzman on 10-10-2023 Hematocrit (Bld) [Volume fraction] 40.2 % 37-47 [facility] Laboratory - Chemistry and C hemistry - challengeon 08-17-2023 Glucose [Mass/Vol] 154 mg/dL High 70 - 100 mg/dL [facility] Glucose [Mass/Vol] 154 mg/dL [facility] Glucose [Mass/Vol] 154 mg/dL High 70 - 100 mg/dL [facility] Glucose [Mass/Vol] mg/dL Low 70 - 100 mg/dL [facility] Comment on above: Caregiver Notified; Confirmation Drawn; Lipase [Catalytic activity/Vol] 62 U/L 23 - 300 U/L [facility] Lactate [Moles/Vol] 1.1 mmol/L 0.7 - 2. 0 mmol/L [facility] Laboratory - Chemistry and C hemistry - challengeOrdered By: Jared Guzman on 08-17-2023 ALP [Catalytic activity/Vol] 156 U/L 45-117 [facility] ALT [Catalytic activity/Vol] 56 U/L 13-56 [facility] CO2 [Moles/Vol] 29.0 mmol/L 21.0-32.0 [facility] Globulin (S) [Mass/Vol] 3.7 g/dL 2.2-4.2 [facility] Urea nitrogen/Creatinine [Mass ratio] 20.6 mg/mg 10-20 [facility] Laboratory - Hematology and Cell countsOrdered By: Jared Guzman on 08-17-2023 Erythrocyte distribution width (RBC) [Entitic vol] 44.6 fL 35.1-43.9 [facility] Erythrocyte distribution width (RBC) [Ratio] 14.0 % 11.6-14.6 [facility] MCH (RBC) [Entitic mass] 26.7 pg 27.0-32.0 [facility] Lipase [Catalytic activity/V ol]on 08-17-2023 Interpretation and review of laboratory results Normal [facility] MCHC Auto (RBC) [Mass/Vol]Or dered By: Jared Guzman on 08-17-2023 MCHC (RBC) [Mass/Vol] 30.8 g/dL 32-36 [facility] No Panel Informationon 08-17 Interpretation and review of laboratory results Abnormal [facility] Performed by: [facility], [address] [place] [address], [facility] [address] CLIA ID: [id number] [facility] rocket staff [facility] Interpretation and review of laboratory results Normal [facility] Interpretation and review of laboratory results Abnormal [facility] Performed by: [facility], [address], [facility] [address] CLIA ID: [id number] [facility] Interpretation and review of laboratory results Abnormal [facility] Performed by: [facility], [address], [facility] [address] CLIA ID: [id number] [facility] [place] [facility] Interpretation and review of laboratory results Normal [facility] No Panel InformationOrdered By: Jared Guzman on 08-17-2023 Estimated GFR (MDRD) Amer 99 mL/min >60 [facility] Comment on above: GFR Calc Estimated GFR (MDRD) Non-Af Amer 81 mL/min >60 [facility] Comment on above: Non- GFR Calc Platelets bldOrdered By: Mike Guzman on 08-17-2023 Platelets (Bld) [#/Vol] 410 10*3/uL 150-450 [facility] Serum or plasma albumin mauricio urement (mass/volume)Ordered By: Jared Guzman on 08-17-2023 Albumin [Mass/Vol] 3.1 g/dL 3.2-5.0 [facility] Serum or plasma albumin/glob ulin mass ratioOrdered By: Jared Guzman on 08-17-2023 Albumin/Globulin [Mass ratio] 0.8 {ratio} 0.9-2.4 [facility] Serum or plasma calcium mauricio urement (mass/volume)Ordered By: Jared Guzman on 08-17-2023 Calcium [Mass/Vol] 9.1 mg/dL 8.5-10.1 [facility] Serum or plasma creatinine m easurement (mass/volume)Ordered By: Jared Guzman on 08-17-2023 Creatinine [Mass/Vol] 0.78 mg/dL 0.55-1.02 [facility] Comment on above: The validity of the calculated GFR & GFRAA in patients over 70 years has not been determined. Clinical correlation is essential. Serum or plasma urea nitroge n measurement (mass/volume)Ordered By: Jared Guzman on 08-17-2023 Urea nitrogen [Mass/Vol] 16 mg/dL 7-18 [facility] Thin prep Papanicolaou smear with manual screeningOrdered By: Jared Guzman on 08-17-2023 Thin prep Papanicolaou smear with manual screening 16 U/L 15-37 [facility] Thin prep Papanicolaou smear with manual screening 3 5-15 [facility] Urinalysis complete panel (U )Ordered By: Silvia Bone on 08-17-2023 Bacteria LM.HPF (Urine sed) [#/Area] Negative Negative /HPF [facility] Bilirubin Ql (U) Negative Negative mg/dL [facility] Clarity (U) Clear Clear [facility] Color (U) Yellow Lt. Yellow [facility] Epithelial cells.squamous LM.HPF (Urine sed) [#/Area] 0-2 [facility] Glucose Ql (U) 300 mg/dL Abnormal Normal (<70) [facility] Hemoglobin Ql (U) 0.06 mg/dL Abnormal Negative [facility] Hyaline casts Auto (Urine sed) [#/Area] 0-2 Abnormal Negative /LPF [facility] Interpretation and review of laboratory results Abnormal [facility] Ketones (U) [Mass/Vol] Negative Negat bernard mg/dL [facility] Leukocyte esterase Test strip Ql (U) Negative Negative Kat/uL [facility] Mucus LM.HPF (Urine sed) [#/Area] Few Negative /LPF [facility] Nitrite Ql (U) Negative Negative [facility] pH (U) 6.0 [pH] 5.0 - 8.0 pH [facility] Protein (U) [Mass/Vol] 300 mg/dL Abnormal Negative [facility] RBC LM.HPF (Urine sed) [#/Area] 3-5 Abnormal [facility] Specific gravity (U) [Rel density] 1.040 High 1.005 - 1.030 [facility] Urobilinogen (U) [Mass/Vol] 2 mg/dL Abnormal Normal (0-1) [facility] WBC LM.HPF (Urine sed) [#/Area] 3-5 [facility] Basic metabolic 1998 panelon 08-08-2023 Anion gap [Moles/Vol] 5 mmol/L 3 - 13 mmol/L [facility] Calcium [Mass/Vol] 8.9 mg/dL 8.4 - 10. 4 mg/dL [facility] Chloride [Moles/Vol] 97 mmol/L Low 98 - 10 7 mmol/L [facility] CO2 [Moles/Vol] 27 mmol/L 22 - 30 mmol/L [facility] Creatinine [Mass/Vol] 0.49 mg/dL Male: 0.66-1.25 mg/dL; Female: 0.52-1.04 mg/dL [facility] GFR/1.73 sq M.predicted MDRD (S/P/Bld) [Vol rate/Area] - PINF [facility] Comment on above: Calculation based on the Chronic Kidney Disease Epidemiology Collaboration (CKD-EPI) equation refit without adjustment for race Glucose [Mass/Vol] 253 mg/dL High 70 - 100 mg/dL [facility] Potassium [Moles/Vol] 5.0 mmol/L 3.5 - 5.1 mmol/L [facility] Sodium [Moles/Vol] 130 mmol/L Low 135 - 145 mmol/L [facility] Urea nitrogen [Mass/Vol] 13 mg/dL Male: 9-20 mg/dL; Female: 7-17 mg/dL [facility] Beta Hydroxybutyrateon 08-08 Beta hydroxybutyrate [Mass/Vol] 8.44 mg/dL High 0.20 - 2.81 mg/dL [facility] Interpretation and review of laboratory results Abnormal [facility] CBC panel Auto (Bld)Ordered By: Alex Kwok on 08-08-2023 Erythrocyte distribution width (RBC) [Ratio] 15.3 % High 11.5 - 14.5 % [facility] Hematocrit (Bld) [Volume fraction] 36.2 % Male: 40.0-52.0 %; Female: 35.0-47.0 % [facility] Hemoglobin (Bld) [Mass/Vol] 12.0 g/dL 11.7 - 18.0 g/dL [facility] Interpretation and review of laboratory results Abnormal [facility] MCH (RBC) [Entitic mass] 27.3 pg 26.0 - 34.0 pg [facility] MCHC (RBC) [Mass/Vol] 33.3 % 32.0 - 36.0 % [facility] MCV (RBC) [Entitic vol] 81.9 fL 80.0 - 98.0 fL [facility] Platelet mean volume (Bld) [Entitic vol] 7.6 fL 7.4 - 12.4 fL [facility] rocket staff Platelets (Bld) [#/Vol] 364 10*3/uL 140 - 440 10*3/uL [facility] rocket staff RBC (Bld) [#/Vol] 4.42 10*6/uL Male: 4.40-5.90; Female: 3.80-5.20 [facility] rocket staff WBC (Bld) [#/Vol] 9.7 10*3/uL 3.6 - 10.7 10*3/uL [facility] CT Abdomen and Pelvis W cont rast [...] MD Electronically Signed Date/Time: 08/08/2023 8:43 AM [facility] Patient Name: WILL ALVARADO : 1965 [id number] Exam Date/Time: 08/08/2023 08:23 Procedure: CT ABDOMEN [...] No acute fracture. No suspicious osseous lesions. [facility] Yvette Stringer MD - 08/08/2023 Patient Name: WILL JACINTO : 1965 [id number] Exam Date/Time: 08/08/2023 08:23 Procedure: CT ABDOMEN [...] Electronically Signed Date/Time: 08/08/2023 8:43 AM EDT [facility] Radiology Study observation (narrative) [facility] ECG 12 leadon 08-08-2023 Heart rate 111 /min bpm [facility] rocket staff P [place] 48 degrees [facility] IN Interval 164 ms [facility] QRS [place] -40 degrees [facility] QRSD Interval 116 ms [facility] QT Interval 363 ms [facility] QTC Interval 494 ms [facility] T Wave [place] 54 degrees [facility] Sinus tachycardia Left anterior fascicular block Left ventricular hypertrophy Borderline prolonged QT interval Compared to ECG 06/29/2023 06:27:39 Electronically Signed On 08-08-2023 7:02:41 EDT by Gayle Trevizo Gayle Mercedes MD - 08/08/2023 IMPRESSION: Sinus tachycardia Left anterior fascicular block Left ventricular hypertrophy Borderline prolonged QT interval Compared to ECG 06/29/2023 06:27:39 Electronically Signed On 08-08-2023 7:02:41 EDT by Gayle Trevizo [facility] Hepatic function 2000 panelo n 08-08-2023 Albumin [Mass/Vol] 4.0 g/dL 3.5 - 5.0 g/dL [facility] rocket staff ALP [Catalytic activity/Vol] 156 U/L High 38 - 126 U/L [facility] rocket staff ALT [Catalytic activity/Vol] 39 U/L Male: 0-49 U/L; Female: 0-34 U/L [facility] AST [Catalytic activity/Vol] 30 U/L 15 - 46 U/L [facility] rocket staff Bilirubin [Mass/Vol] 0.5 mg/dL 0.2 - 1 .3 mg/dL [facility] Bilirubin.conjugated [Mass/Vol] 0.0 mg/dL 0.0 - 0.3 mg/dL [facility] rocket staff Protein [Mass/Vol] 7.3 g/dL 6.3 - 8.2 g/dL [facility] rocket staff Lipaseon 08-08-2023 Lipase [Catalytic activity/Vol] 34 U/L 23 - 300 U/L [facility] rocket staff Lipase [Catalytic activity/V ol]on 08-08-2023 Interpretation and review of laboratory results Normal [facility] rocket staff No Panel Informationon 08-08 [facility] Interpretation and review of laboratory results Abnormal [facility] rocket staff POCT glucose meteron 023 Glucose [Mass/Vol] 251 mg/dL High 70 - 100 mg/dL [facility] rocket staff Interpretation and review of laboratory results Abnormal [facility] rocket staff Performed by: [facility], [address] [place] [address] CLIA ID: [id number] [facility] rocket staff POCT venous blood gason Base excess Calc (BldV) [Moles/Vol] 0.0 mmol/L -3 - 3 mmol/L [facility] CO2 (BldV) [Partial pressure] 35.7 mm[Hg] Low [facility] CO2 [Moles/Vol] 24.9 mmol/L 24.0 - 28.0 mmol/L [facility] Comment on above: Performed by CLIA ID : [id number] [facility] [place] ?Device: [id number] Water Supervisor ID: [id number] [facility] rocket staff HCO3 (Bld) [Moles/Vol] 23.8 mmol/L 23.0 - 27.0 mmol/L [facility] Interpretation and review of laboratory results Abnormal [facility] Oxygen (BldV) [Partial pressure] 40.4 mm[Hg] [facility] Oxygen saturation in Venous blood 77.5 % 60.0 - 80.0 % [facility] pH (BldV) 7.432 [pH] High 7.330 - 7.430 pH [facility] Performed by: [facility], [address] [place] [address] CLIA ID: [id number] [facility] Troponin I.cardiac [Mass/Vol ]on 08-08-2023 Interpretation and review of laboratory results Normal [facility] Patients with high levels of Biotin oral intake (ie >5 mg/day) may have falsely decreased Troponin levels. [facility] Troponin, with Serial Reflex on 08-08-2023 Troponin I.cardiac [Mass/Vol] ng/mL NINF - 0.034 ng/mL [facility] Urinalysis complete panel (U )Ordered By: Jackson Her on 08-08-2023 Bacteria LM.HPF (Urine sed) [#/Area] Few Abnormal Negative /HPF [facility] Bilirubin Ql (U) Negative Negative mg/dL [facility] Clarity (U) Clear Clear [facility] Color (U) Light Yellow Lt. Yellow [facility] Epithelial cells.squamous LM.HPF (Urine sed) [#/Area] 0-2 [facility] Glucose Ql (U) 150 mg/dL Abnormal Normal (<70) [facility] Hemoglobin Ql (U) 0.06 mg/dL Abnormal Negative [facility] Interpretation and review of laboratory results Abnormal [facility] Ketones (U) [Mass/Vol] 10 mg/dL Abnormal Negative [facility] Leukocyte clumps LM.HPF (Urine sed) [#/Area] Rare Abnormal Negative /HPF [facility] Leukocyte esterase Test strip Ql (U) 250 Abnormal Negative Kat/uL [facility] Nitrite Ql (U) Negative Negative [facility] Non-Squamous Epithalial Cells, Urine 0-2 Abnormal Negative /HPF [facility] pH (U) 6.0 [pH] 5.0 - 8.0 pH [facility] Protein (U) [Mass/Vol] 200 mg/dL Abnormal Negative [facility] RBC LM.HPF (Urine sed) [#/Area] 3-5 Abnormal [facility] Specific gravity (U) [Rel density] High 1.005 - 1.030 [facility] Urobilinogen (U) [Mass/Vol] Normal Normal (0-1) mg/dL [facility] WBC LM.HPF (Urine sed) [#/Area] 6-10 Abnormal [facility] rocket staff XR Chest Single viewon 08-08 Lungs clear with no acute cardiopulmonary disease process Report Dictated on Electronically Signed By: Chucho Stringer MD Electronically Signed Date/Time: 08/08/2023 7:16 AM EDT [facility] Patient Name: [...] mediastinal contours are normal. VASCULARITY: Normal BONES:Unremarkable [facility] Yvette Stringer MD - 08/08/2023 Patient Name: WILL JACINTO : 1965 Exam Date/Time: 08/08/2023 07:22 Procedure: [...] Electronically Signed Date/Time: 08/08/2023 7:16 AM EDT [facility] Radiology Study observation (narrative) [facility] rocket staff XR Chest Single viewOrdered By: Yvette Stringer on 08-08-2023 [facility] Work Phone: Basophil percentageOrdered B y: Jared Guzman on 08-04-2023 Chloride [Moles/Vol] 107 mmol/L 98-107 [facility] Glucose [Mass/Vol] 140 mg/dL 74-106 [facility] Comment on above: Fasting Glucose resu lt greater than or equal to 126 mg/dL suggests DIABETES MELLITUS per A.D.A. criteria. Potassium [Moles/Vol] 4.7 mmol/L 3.5-5.1 [facility] Sodium [Moles/Vol] 137 mmol/L 136-145 [facility] Laboratory - Chemistry and C hemistry - challengeOrdered By: Jared Guzman on 08-04-2023 CO2 [Moles/Vol] 27.0 mmol/L 21.0-32.0 [facility] Urea nitrogen/Creatinine [Mass ratio] 29.5 mg/mg 10-20 [facility] No Panel InformationOrdered By: Jared Guzman on 08-04-2023 Estimated GFR (MDRD) Amer 85 mL/min >60 [facility] Comment on above: GFR Calc Estimated GFR (MDRD) Non-Af Amer 71 mL/min >60 [facility] Comment on above: Non- GFR Calc Serum or plasma calcium mauricio urement (mass/volume)Ordered By: Jared Guzman on 08-04-2023 Calcium [Mass/Vol] 8.6 mg/dL 8.5-10.1 [facility] Serum or plasma creatinine m easurement (mass/volume)Ordered By: Jared Guzman on 08-04-2023 Creatinine [Mass/Vol] 0.88 mg/dL 0.55-1.02 [facility] Comment on above: The validity of the calculated GFR & GFRAA in patients over 70 years has not been determined. Clinical correlation is essential. Serum or plasma urea nitroge n measurement (mass/volume)Ordered By: Jared Guzman on 08-04-2023 Urea nitrogen [Mass/Vol] 26 mg/dL 7-18 [facility] Thin prep Papanicolaou smear with manual screeningOrdered By: Jared Guzman on 08-04-2023 Thin prep Papanicolaou smear with manual screening 3 5-15 [facility] Basophil percentageOrdered B y: Jared Guzman on 08-02-2023 Chloride [Moles/Vol] 102 mmol/L 98-107 [facility] Glucose [Mass/Vol] 393 mg/dL 74-106 [facility] Comment on above: Glucose result great er than or equal to 200 mg/dLsuggests DIABETES MELLITUS per A.D.A. criteria. Potassium [Moles/Vol] 6.1 mmol/L 3.5-5.1 [facility] Sodium [Moles/Vol] 131 mmol/L 136-145 [facility] WBC (Bld) [#/Vol] 6.7 10*3/uL 4.4-11.0 [facility] Blood erythrocytes count (nu mber/volume)Ordered By: Jared Guzman on 08-02-2023 RBC (Bld) [#/Vol] 3.97 10*6/uL 4.2-5.4 [facility] Blood hemoglobin measurement (mass/volume)Ordered By: Jared Guzman on 08-02-2023 Hemoglobin (Bld) [Mass/Vol] 10.9 g/dL 12.0-15.0 [facility] Blood platelet mean volumeOr dered By: Jared Guzman on 08-02-2023 Platelet mean volume (Bld) [Entitic vol] 10.3 fL 6.2-12.0 [facility] Determination of erythrocyte mean corpuscular volume (MCV)Ordered By: Jared Guzman on 08-02-2023 MCV (RBC) [Entitic vol] 88.9 fL 81-99 [facility] Hematocrit Auto (Bld) [Volum e fraction]Ordered By: Jared Guzman on 08-02-2023 Hematocrit (Bld) [Volume fraction] 35.3 % 37-47 [facility] Laboratory - Chemistry and C hemistry - challengeOrdered By: Jared Guzman on 08-02-2023 CO2 [Moles/Vol] 22.0 mmol/L 21.0-32.0 [facility] Urea nitrogen/Creatinine [Mass ratio] 26.2 mg/mg 10-20 [facility] Laboratory - Hematology and Cell countsOrdered By: Jared Guzman on 08-02-2023 Erythrocyte distribution width (RBC) [Entitic vol] 48.3 fL 35.1-43.9 [facility] Erythrocyte distribution width (RBC) [Ratio] 14.7 % 11.6-14.6 [facility] MCH (RBC) [Entitic mass] 27.5 pg 27.0-32.0 [facility] MCHC Auto (RBC) [Mass/Vol]Or dered By: Jared Guzman on 08-02-2023 MCHC (RBC) [Mass/Vol] 30.9 g/dL 32-36 [facility] No Panel InformationOrdered By: Jared Guzman on 08-02-2023 Estimated GFR (MDRD) Amer 86 mL/min >60 [facility] Comment on above: GFR Calc Estimated GFR (MDRD) Non-Af Amer 71 mL/min >60 [facility] Comment on above: Non- GFR Calc Platelets bldOrdered By: Mike Guzman on 08-02-2023 Platelets (Bld) [#/Vol] 342 10*3/uL 150-450 [facility] Serum or plasma calcium mauricio urement (mass/volume)Ordered By: Jared Guzman on 08-02-2023 Calcium [Mass/Vol] 8.8 mg/dL 8.5-10.1 [facility] Serum or plasma creatinine m easurement (mass/volume)Ordered By: Jared Guzman on 08-02-2023 Creatinine [Mass/Vol] 0.88 mg/dL 0.55-1.02 [facility] Comment on above: The validity of the calculated GFR & GFRAA in patients over 70 years has not been determined. Clinical correlation is essential. Serum or plasma urea nitroge n measurement (mass/volume)Ordered By: Jared Guzman on 08-02-2023 Urea nitrogen [Mass/Vol] 23 mg/dL 7-18 [facility] Thin prep Papanicolaou smear with manual screeningOrdered By: Jared Guzman on 08-02-2023 Thin prep Papanicolaou smear with manual screening 7 5-15 [facility] Basophil percentageOrdered B y: Jared Guzman on 07-05-2023 Bilirubin [Mass/Vol] 0.30 mg/dL 0.20-1.00 [facility] Comment on above: For patients on eltr ombopag therapy, use of Dimension [place] TBIL is not recommended..Previous reported result: 0.30 mg/dLEdited by: PAULINE on 07/06/23:0945 AMENDED REPORT 07/06/23944 T BILI previously reported as: 0.30 mg/dL For patients on eltrombopag therapy, use of Dimension [place] TBIL is not recommended. Chloride [Moles/Vol] 108 mmol/L 98-107 [facility] Comment on above: .Previous reported r esult: 108 mmol/LEdited by: PAULINE on 07/06/23:0945 AMENDED REPORT 07/06/23944 CL previously reported as: 108 H mmol/L Glucose [Mass/Vol] 149 mg/dL 74-106 [facility] Comment on above: Fasting Glucose resu lt greater than or equal to 126 mg/dL suggests DIABETES MELLITUS per A.D.A. criteria..Previous reported result: 149 mg/dLEdited by: PAULINE on 07/06/23:0943 AMENDED REPORT 07/06/23942 GLU previously reported as: 149 H mg/dL Fasting Glucose result greater than or equal to 126 mg/dL suggests DIABETES MELLITUS per A.D.A. criteria. Potassium [Moles/Vol] 4.4 mmol/L 3.5-5.1 [facility] Comment on above: .Previous reported r esult: 4.4 mmol/LEdited by: PAULINE on 07/06/23:0945 AMENDED REPORT 07/06/23944 K previously reported as: 4.4 mmol/L Protein [Mass/Vol] 6.3 g/dL 6.4-8.2 [facility] Comment on above: .Previous reported r esult: 6.3 g/dLEdited by: PAULINE on 07/06/23:0944 AMENDED REPORT 07/06/23943 T PROT previously reported as: 6.3 L g/dL Sodium [Moles/Vol] 138 mmol/L 136-145 [facility] Comment on above: .Previous reported r esult: 138 mmol/LEdited by: PAULINE on 07/06/23:0945 AMENDED REPORT 07/06/2345 NA previously reported as: 138 mmol/L WBC (Bld) [#/Vol] 7.0 10*3/uL 4.4-11.0 [facility] Comment on above: .Previous reported r esult: 7.0 K/tq6Nktrai by: PAULINE on 07/06/23:0941 AMENDED REPORT 07/06/23940 WBC previously reported as: 7.0 K/mm3 Blood erythrocytes count (nu mber/volume)Ordered By: Jared Guzman on 07-05-2023 RBC (Bld) [#/Vol] 4.01 10*6/uL 4.2-5.4 [facility] Comment on above: .Previous reported r esult: 4.01 M/qx2Xgctha by: PAULINE on 07/06/23:0941 AMENDED REPORT 07/06/23940 RBC previously reported as: 4.01 L M/mm3 Blood hemoglobin measurement (mass/volume)Ordered By: Jared Guzman on 07-05-2023 Hemoglobin (Bld) [Mass/Vol] 10.9 g/dL 12.0-15.0 [facility] Comment on above: .Previous reported r esult: 10.9 g/dLEdited by: PAULINE on 07/06/23:0941 AMENDED REPORT 07/06/23940 HGB previously reported as: 10.9 L g/dL Blood platelet mean volumeOr dered By: Jared Guzman on 07-05-2023 Platelet mean volume (Bld) [Entitic vol] 10.1 fL 6.2-12.0 [facility] Comment on above: .Previous reported r esult: 10.1 flEdited by: PAULINE on 07/06/23:0942 AMENDED REPORT 07/06/23941 MPV previously reported as: 10.1 fl Determination of erythrocyte mean corpuscular volume (MCV)Ordered By: Jared Guzman on 07-05-2023 MCV (RBC) [Entitic vol] 89.3 fL 81-99 [facility] Comment on above: .Previous reported r esult: 89.3 fLEdited by: PAULINE on 07/06/23:0942 AMENDED REPORT 07/06/23941 MCV previously reported as: 89.3 fL Hematocrit Auto (Bld) [Volum e fraction]Ordered By: Jared Guzman on 07-05-2023 Hematocrit (Bld) [Volume fraction] 35.8 % 37-47 [facility] Comment on above: .Previous reported r esult: 35.8 %Edited by: PAULINE on 07/06/23:0942 AMENDED REPORT 07/06/23941 HCT previously reported as: 35.8 L % Laboratory - Chemistry and C hemistry - challengeOrdered By: Jared Guzman on 07-05-2023 ALP [Catalytic activity/Vol] 155 U/L 45-117 [facility] Comment on above: ..Previous reported result: 155 U/LEdited by: PAULINE on 07/06/23:0945 AMENDED REPORT 07/06/23944 ALK P previously reported as: 155 H U/L ALT [Catalytic activity/Vol] 43 U/L 13-56 [facility] Comment on above: .Previous reported r esult: 43 U/LEdited by: PAULINE on 07/06/23:0945 AMENDED REPORT 07/06/2345 ALT previously reported as: 43 U/L CO2 [Moles/Vol] 26.0 mmol/L 21.0-32.0 [facility] Comment on above: .Previous reported r esult: 26.0 mmol/LEdited by: PAULINE on 07/06/23:0946 AMENDED REPORT 07/06/2346 CO2 previously reported as: 26.0 mmol/L Globulin (S) [Mass/Vol] 3.6 g/dL 2.2-4.2 [facility] Comment on above: .Previous reported r esult: 3.6 g/dLEdited by: PAULINE on 07/06/23:0944 AMENDED REPORT 07/06/2344 GLOB previously reported as: 3.6 g/dL Urea nitrogen/Creatinine [Mass ratio] 23.7 mg/mg 10-20 [facility] Comment on above: .Previous reported r esult: 23.5 RATIOEdited by: PAULINE on 07/06/23:0943 AMENDED REPORT 07/06/23942 BUN/CRE previously reported as: 23.5 H RATIO Laboratory - Hematology and Cell countsOrdered By: Jared Guzman on 07-05-2023 Erythrocyte distribution width (RBC) [Entitic vol] 47.5 fL 35.1-43.9 [facility] Comment on above: .Previous reported r esult: 47.5 flEdited by: PAULINE on 07/06/23:0942 AMENDED REPORT 07/06/23941 RDW SD previously reported as: 47.5 H fl Erythrocyte distribution width (RBC) [Ratio] 14.5 % 11.6-14.6 [facility] Comment on above: .Previous reported r esult: 14.5 %Edited by: PAULINE on 07/06/23:0942 AMENDED REPORT 07/06/23941 RDW CV previously reported as: 14.5 % MCH (RBC) [Entitic mass] 27.2 pg 27.0-32.0 [facility] Comment on above: .Previous reported r esult: 27.2 pgEdited by: PAULINE on 07/06/23:0942 AMENDED REPORT 07/06/23941 MCH previously reported as: 27.2 pg MCHC Auto (RBC) [Mass/Vol]Or dered By: Jared Guzman on 07-05-2023 MCHC (RBC) [Mass/Vol] 30.4 g/dL 32-36 [facility] Comment on above: .Previous reported r esult: 30.4 g/dLEdited by: PAULINE on 07/06/23:0942 AMENDED REPORT 07/06/23941 MCHC previously reported as: 30.4 L g/dL No Panel InformationOrdered By: Jared Guzman on 07-05-2023 Estimated GFR (MDRD) Amer 137 mL/min >60 [facility] Comment on above: GFR Calc.Previous reported result: 135 mL/minEdited by: PAULINE on 07/06/23:0943 AMENDED REPORT 08/29/23 0943 EST GFR - AA previously reported as: 135 mL/min GFR Calc Estimated GFR (MDRD) Non-Af Amer 113 mL/min >60 [facility] Comment on above: Non- GFR Calc.Previous reported result: 112 mL/minEdited by: PAULINE on 07/06/23:0943 AMENDED REPORT 07/06/23942 EST GFR previously reported as: 112 mL/min Non- GFR Calc Platelets bldOrdered By: Mike Guzman on 07-05-2023 Platelets (Bld) [#/Vol] 352 10*3/uL 150-450 [facility] Comment on above: .Previous reported r esult: 352 K/di6Mmkhiz by: PAULINE on 07/06/23:0942 AMENDED REPORT 07/06/23941 PLT previously reported as: 352 K/mm3 Serum or plasma albumin mauricio urement (mass/volume)Ordered By: Jared Guzman on 07-05-2023 Albumin [Mass/Vol] 2.7 g/dL 3.2-5.0 [facility] Comment on above: .Previous reported r esult: 2.7 g/dLEdited by: PAULINE on 07/06/23:0944 AMENDED REPORT 07/06/23943 ALB previously reported as: 2.7 L g/dL Serum or plasma albumin/glob ulin mass ratioOrdered By: Jared Guzman on 07-05-2023 Albumin/Globulin [Mass ratio] 0.8 {ratio} 0.9-2.4 [facility] Comment on above: .Previous reported r esult: 0.8 RATIOEdited by: PAULINE on 07/06/23:0944 AMENDED REPORT 07/06/23943 A/G previously reported as: 0.8 L RATIO Serum or plasma calcium mauricio urement (mass/volume)Ordered By: Jared Guzman on 07-05-2023 Calcium [Mass/Vol] 8.8 mg/dL 8.5-10.1 [facility] Comment on above: .Previous reported r esult: 8.8 mg/dLEdited by: PALUINE on 07/06/23:0944 AMENDED REPORT 08/29/23 0944 CA previously reported as: 8.8 mg/dL Serum or plasma creatinine m easurement (mass/volume)Ordered By: Jared Guzman on 07-05-2023 Creatinine [Mass/Vol] 0.76 mg/dL 0.55-1.02 [facility] Comment on above: The validity of the calculated GFR & GFRAA in patients over 70 years has not been determined. Clinical correlation is essential..Previous reported result: 0.76 mg/dLEdited by: PAULINE on 07/06/23:0943 AMENDED REPORT 07/06/2343 CREAT,SERUM previously reported as: 0.76 mg/dL The validity of the calculated GFR & GFRAA in patients over 70 years has not been determined. Clinical correlation is essential. Serum or plasma urea nitroge n measurement (mass/volume)Ordered By: Jared Guzman on 07-05-2023 Urea nitrogen [Mass/Vol] 18 mg/dL 7-18 [facility] Comment on above: .Previous reported r esult: 18 mg/dLEdited by: PAULINE on 07/06/23:0943 AMENDED REPORT 07/06/2343 BUN previously reported as: 18 mg/dL Thin prep Papanicolaou smear with manual screeningOrdered By: Jared Guzman on 07-05-2023 Thin prep Papanicolaou smear with manual screening 15 U/L 15-37 [facility] Comment on above: .Previous reported r esult: 15 U/LEdited by: PAULINE on 07/06/23:0945 AMENDED REPORT 07/06/2345 AST previously reported as: 15 U/L Thin prep Papanicolaou smear with manual screening 4 5-15 [facility] Comment on above: .Previous reported r esult: 4 Edited by: PAULINE on 07/06/23:0946 AMENDED REPORT 07/06/2346 GAP previously reported as: 4 L Laboratory - Chemistry and C hemistry - challengeon 07-01-2023 Glucose [Mass/Vol] 391 mg/dL High 70 - 100 mg/dL [facility] rocket staff Glucose [Mass/Vol] 242 mg/dL High 70 - 100 mg/dL [facility] No Panel Informationon 07-01 Interpretation and review of laboratory results Abnormal [facility]formed [facility]: [facility], [address] [facility] [address] CLIA ID: [id number] [facility] rocket staff [facility] Interpretation and review of laboratory results Abnormal [facility] Performed by: [facility], [address] [facility] [address] CLIA ID: [id number] [facility] rocket staff [facility] rocket staff Laboratory - Chemistry and C hemistry - challengeon 06-30-2023 Glucose [Mass/Vol] 101 mg/dL High 70 - 100 mg/dL [facility] Glucose [Mass/Vol] 131 mg/dL High 70 - 100 mg/dL [facility] Glucose [Mass/Vol] 251 mg/dL High 70 - 100 mg/dL [facility] Glucose [Mass/Vol] 317 mg/dL High 70 - 100 mg/dL [facility] rocket staff No Panel Informationon 06-30 Interpretation and review of laboratory results Abnormal [facility] Performed by: [facility], [address] [facility] [address] CLIA ID: [id number] [facility] rocket staff [facility] Interpretation and review of laboratory results Abnormal [facility] Performed by: [facility], [address] [place] [id number] CLIA ID: [id number] [facility] Art Benavidez M D - 06/30/2023 IMPRESSION: Sinus rhythm Abnormal R-wave progression, late transition Left ventricular hypertrophy Electronically Signed On 06-30-2023 12:43:24 EDT by Art Benavidez [facility] rocket staff Interpretation and review of laboratory results Abnormal [facility] staff Performed by: [facility], [address] [facility] [address] CLIA ID: [id number] [facility] rocket staff [facility] Interpretation and review of laboratory results Abnormal [facility] Performed by: [facility], [address] [facility] [address] CLIA ID: [id number] [facility] rocket staff [facility] No Panel InformationOrdered By: Art Benavidez on 06-30-2023 P [place] 37 degrees [employer] Work Phone: IN Interval 166 ms [employer] Work Phone: QRS [place] -31 degrees [employer] Work Phone: QRSD Interval 112 ms [employer] Work Phone: QT Interval 413 ms [employer] Work Phone: QTC Interval 466 ms [employer] Work Phone: T Wave [place] 22 degrees [employer] Work Phone: [employer] Work Phone: Vital signsOrdered By: Laron Benavidez on 06-30-2023 Heart rate 76 /min bpm [employer] Work Phone: CBC panel Auto (Bld)Ordered By: Alex Kwok on 06-29-2023 Erythrocyte distribution width (RBC) [Ratio] 15.3 % High 11.5 - 14.5 % [employer] rocket staff Hematocrit (Bld) [Volume fraction] 32.6 % [employer] rocket staff Hemoglobin (Bld) [Mass/Vol] 10.8 g/dL Low 11.7 - 18.0 g/dL [facility] rocket staff Interpretation and review of laboratory results Abnormal [facility] rocket staff MCH (RBC) [Entitic mass] 27.5 pg 26.0 - 34.0 pg [facility] rocket staff MCHC (RBC) [Mass/Vol] 33.2 % 32.0 - 36.0 % [employer] rocket staff MCV (RBC) [Entitic vol] 82.9 fL 80.0 - 98.0 fL [employer] rocket staff Platelet mean volume (Bld) [Entitic vol] 7.7 fL 7.4 - 12.4 fL [facility] rocket staff Platelets (Bld) [#/Vol] 361 10*3/uL 140 - 440 10*3/uL [facility] rocket staff RBC (Bld) [#/Vol] 3.94 10*6/uL [employer] rocket staff WBC (Bld) [#/Vol] 9.2 10*3/uL 3.6 - 10.7 10*3/uL [facility] rocket staff [facility] rocket staff Comprehensive metabolic 1998 panelon 06-29-2023 Albumin [Mass/Vol] 3.4 g/dL Low 3.5 - 5.0 g/dL [employer] rocket staff ALP [Catalytic activity/Vol] 121 U/L 38 - 126 U/L [facility] ALT [Catalytic activity/Vol] 41 U/L [facility] Anion gap [Moles/Vol] 6 mmol/L 3 - 13 mmol/L [facility] AST [Catalytic activity/Vol] 32 U/L 15 - 46 U/L [facility] Bilirubin [Mass/Vol] 0.3 mg/dL 0.2 - 1 .3 mg/dL [facility] Calcium [Mass/Vol] 8.3 mg/dL Low 8.4 - 10. 4 mg/dL [facility] Chloride [Moles/Vol] 103 mmol/L 98 - 10 7 mmol/L [facility] CO2 [Moles/Vol] 27 mmol/L 22 - 30 mmol/L [facility] Creatinine [Mass/Vol] 0.79 mg/dL [facility] GFR/1.73 sq M.predicted MDRD (S/P/Bld) [Vol rate/Area] 87.9 mL/min/{1.73_m2} - PINF [facility] Comment on above: Calculation based on the Chronic Kidney Disease Epidemiology Collaboration (CKD-EPI) equation refit without adjustment for race Glucose [Mass/Vol] 193 mg/dL High 70 - 100 mg/dL [facility] Interpretation and review of laboratory results Abnormal [facility] Potassium [Moles/Vol] 5.0 mmol/L 3.5 - 5.1 mmol/L [facility] Protein [Mass/Vol] 6.3 g/dL 6.3 - 8.2 g/dL [facility] Sodium [Moles/Vol] 136 mmol/L 135 - 145 mmol/L [facility] Urea nitrogen [Mass/Vol] 23 mg/dL [facility] Laboratory - Chemistry and C hemistry - challengeon 06-29-2023 Glucose [Mass/Vol] 180 mg/dL High 70 - 100 mg/dL [facility] Glucose [Mass/Vol] 338 mg/dL High 70 - 100 mg/dL [facility] Glucose [Mass/Vol] 244 mg/dL High 70 - 100 mg/dL [facility] Glucose [Mass/Vol] 234 mg/dL High 70 - 100 mg/dL [facility] No Panel Informationon 06-29 Interpretation and review of laboratory results Abnormal [facility] Performed by: Nati Bustos, [address] [place] [address] [place] [id number] CLIA ID: [id number] [facility] Interpretation and review of laboratory results Abnormal [facility] Performed by: [facility], [address] [facility], [facility] [address] CLIA ID: [id number] [facility] Interpretation and review of laboratory results Abnormal [facility] Performed by: [facility], [address] [facility], [facility] [address] CLIA ID: [id number] [facility] Interpretation and review of laboratory results Abnormal [facility] Performed by: [facility], [address] [facility], [facility] [address] CLIA ID: [id number] [facility] Basic metabolic 1998 panelon 06-28-2023 Anion gap [Moles/Vol] 7 mmol/L 3 - 13 mmol/L [facility] Calcium [Mass/Vol] 9.1 mg/dL 8.4 - 10. 4 mg/dL [facility] Chloride [Moles/Vol] 102 mmol/L 98 - 10 7 mmol/L [facility] CO2 [Moles/Vol] 24 mmol/L 22 - 30 mmol/L [facility] Creatinine [Mass/Vol] 0.64 mg/dL [facility] GFR/1.73 sq M.predicted MDRD (S/P/Bld) [Vol rate/Area] - PINF [facility] Comment on above: Calculation based on the Chronic Kidney Disease Epidemiology Collaboration (CKD-EPI) equation refit without adjustment for race Glucose [Mass/Vol] 194 mg/dL High 70 - 100 mg/dL [facility] Interpretation and review of laboratory results Abnormal [facility] Potassium [Moles/Vol] 5.0 mmol/L 3.5 - 5.1 mmol/L [facility] Sodium [Moles/Vol] 133 mmol/L Low 135 - 145 mmol/L [facility] Urea nitrogen [Mass/Vol] 20 mg/dL [facility] CBC W Auto Differential pane l (Bld)Ordered By: Joel Houston on 06-28-2023 Basophils (Bld) [#/Vol] 0.1 10*3/uL 0.0 - 0.2 10*3/uL [facility] Basophils/100 WBC (Bld) 0.6 % 0.0 - 2.0 % [facility] Eosinophils (Bld) [#/Vol] 0.0 10*3/uL 0.0 - 0.5 10*3/uL [facility] Eosinophils/100 WBC (Bld) 0.1 % Low 1.0 - 6.0 % [facility] Erythrocyte distribution width (RBC) [Ratio] 15.4 % High 11.5 - 14.5 % [facility] Hematocrit (Bld) [Volume fraction] 35.1 % [facility] Hemoglobin (Bld) [Mass/Vol] 11.6 g/dL Low 11.7 - 18.0 g/dL [facility] Interpretation and review of laboratory results Abnormal [facility] Lymphocytes (Bld) [#/Vol] 0.6 10*3/uL Low 1.0 - 4.3 10*3/uL [facility] Lymphocytes/100 WBC (Bld) 5.4 % Low 20.0 - 40.0 % [facility] MCH (RBC) [Entitic mass] 27.3 pg 26.0 - 34.0 pg [facility] MCHC (RBC) [Mass/Vol] 33.2 % 32.0 - 36.0 % [facility] MCV (RBC) [Entitic vol] 82.3 fL 80.0 - 98.0 fL [facility] Monocytes (Bld) [#/Vol] 0.4 10*3/uL 0.0 - 0.8 10*3/uL [facility] Monocytes/100 WBC (Bld) 3.6 % 2.0 - 10.0 % [facility] Neutrophils (Bld) [#/Vol] 10.6 10*3/uL High 1.8 - 7.0 10*3/uL [facility] Neutrophils/100 WBC (Bld) 90.3 % High 40.0 - 80.0 % [facility] Nucleated RBC/100 WBC (Bld) [Ratio] 0.0 % [facility] Platelet mean volume (Bld) [Entitic vol] 7.9 fL 7.4 - 12.4 fL [facility] Platelets (Bld) [#/Vol] 384 10*3/uL 140 - 440 10*3/uL [facility] RBC (Bld) [#/Vol] 4.26 10*6/uL [facility] WBC (Bld) [#/Vol] 11.8 10*3/uL High 3.6 - 10.7 10*3/uL [facility] CTA Chest vessels WO and W c ontrast Erica 06-28-2023 Patient Name: WILL ALVARADO : 1965 Exam Date/Time: 06/28/2023 03:49 Procedure: [...] Bones: Multilevel flowing osteophytes consistent with DISH. [facility] Yvette Stringer MD - 06/28/2023 [...] Electronically Signed Date/Time: 06/28/2023 4:37 AM EDT [facility] staff Radiology Study observation (narrative) [facility] staff Laboratory - Chemistry and C hemistry - challengeon 06-28-2023 Glucose [Mass/Vol] 223 mg/dL High 70 - 100 mg/dL [facility] rocket staff Glucose [Mass/Vol] 270 mg/dL High 70 - 100 mg/dL [facility] rocket staff Troponin I.cardiac [Mass/Vol] ng/mL 0.000 - 0.034 ng/mL [facility] rocket staff Glucose [Mass/Vol] 253 mg/dL High 70 - 100 mg/dL [facility] rocket staff Glucose [Mass/Vol] 247 mg/dL High 70 - 100 mg/dL [facility] rocket staff Troponin I.cardiac [Mass/Vol] ng/mL 0.000 - 0.034 ng/mL [facility] rocket staff Natriuretic peptide B [Mass/ Vol]on 06-28-2023 Interpretation and review of laboratory results Normal [facility] Natriuretic peptide B (Bld) [Mass/Vol] 150 pg/mL <20 - 300 [facility] rocket staff No Panel Informationon 06-28 Interpretation and review of laboratory results Abnormal [facility] rocket staff Performed by: Nati Vigil [facility], [address] [place] [address], [facility] [address] CLIA ID: [id number] [facility] Interpretation and review of laboratory results Abnormal [facility] Performed by: [facility], [address] [facility], [facility] [address] CLIA ID: [id number] [facility] Interpretation and review of laboratory results Abnormal [facility] Performed by: [facility], [address] [facility], [facility] [address] CLIA ID: [id number] [facility] Interpretation and review of laboratory results Abnormal [facility] Performed by: [facility], [address] [facility], [facility] [address] CLIA ID: [id number] [facility] P [place] 44 degrees [facility] IN Interval 180 ms [facility] QRS [place] -37 degrees [facility] QRSD Interval 115 ms [facility] QT Interval 364 ms [facility] QTC Interval 481 ms [facility] T Wave [place] 53 degrees [facility] Sinus tachycardia Nonspecific IVCD with LAD Left ventricular hypertrophy Minimal ST elevation, anterolateral leads Electronically Signed On 06-28-2023 5:20:13 EDT by Rosaura Mustafa CV Rosaura Schafer, - 06/28/2023 IMPRESSION: Sinus tachycardia Nonspecific IVCD with LAD Left ventricular hypertrophy Minimal ST elevation, anterolateral leads Electronically Signed On 06-28-2023 5:20:13 EDT by Rosaura Mustafa [facility] Troponin I.cardiac [Mass/Vol ]on 06-28-2023 Interpretation and review of laboratory results Normal [facility] Patients with high levels of Biotin oral intake (ie >5 mg/day) may have falsely decreased Troponin levels. [facility] Interpretation and review of laboratory results Normal [facility] Patients with high levels of Biotin oral intake (ie >5 mg/day) may have falsely decreased Troponin levels. [facility] Vital signson 06-28-2023 Heart rate 105 /min bpm [facility] XR Chest Single viewon 06-28 Low lung volumes. No acute infiltrate or effusion. Report Dictated on Electronically Signed By: Chucho Stringer MD Electronically Signed Date/Time: 06/28/2023 3:08 AM EDT [facility] Patient Name: WILL ALVARADO : 1965 Exam Date/Time: 06/28/2023 03:08 Procedure: [...] VASCULARITY: Normal BONES:Unremarkable SUPPORT LINES: None OTHER: [facility] Yvette Stringer MD - 06/28/2023 Patient [...] Electronically Signed Date/Time: 06/28/2023 3:08 AM EDT [employer] rocket staff Radiology Study observation (narrative) [employer] XR Chest Single viewOrdered By: Yvette Stringer on 06-28-2023 [employer] Work Phone: Basophil percentageOrdered B y: Jared Esteveschad on 05-31-2023 Chloride [Moles/Vol] 106 mmol/L 98-107 [facility] Glucose [Mass/Vol] 227 mg/dL 74-106 [facility] Comment on above: Glucose result great er than or equal to 200 mg/dLsuggests DIABETES MELLITUS per A.D.A. criteria. Potassium [Moles/Vol] 4.8 mmol/L 3.5-5.1 [facility] Sodium [Moles/Vol] 137 mmol/L 136-145 [facility] WBC (Bld) [#/Vol] 7.7 10*3/uL 4.4-11.0 [facility] Blood erythrocytes count (nu mber/volume)Ordered By: Jared Guzman on 05-31-2023 RBC (Bld) [#/Vol] 3.90 10*6/uL 4.6-6.2 [facility] Blood hemoglobin measurement (mass/volume)Ordered By: Jared Guzman on 05-31-2023 Hemoglobin (Bld) [Mass/Vol] 10.4 g/dL 13.0-16.5 [facility] Blood platelet mean volumeOr dered By: Jared Guzman on 05-31-2023 Platelet mean volume (Bld) [Entitic vol] 9.9 fL 6.2-12.0 [facility] Determination of erythrocyte mean corpuscular volume (MCV)Ordered By: Jared Guzman on 05-31-2023 MCV (RBC) [Entitic vol] 89.7 fL 80-94 [facility] Hematocrit Auto (Bld) [Volum e fraction]Ordered By: Jared Guzman on 05-31-2023 Hematocrit (Bld) [Volume fraction] 35.0 % 40-54 [facility] Laboratory - Chemistry and C hemistry - challengeOrdered By: Jared Guzman on 05-31-2023 CO2 [Moles/Vol] 26.0 mmol/L 21.0-32.0 [facility] Urea nitrogen/Creatinine [Mass ratio] 31.0 mg/mg 10-20 [facility] Laboratory - Hematology and Cell countsOrdered By: Jared Guzman on 05-31-2023 Erythrocyte distribution width (RBC) [Entitic vol] 46.2 fL 35.1-43.9 [facility] Erythrocyte distribution width (RBC) [Ratio] 14.3 % 11.6-14.6 [facility] MCH (RBC) [Entitic mass] 26.7 pg 27.0-32.0 [facility] Auto (RBC) [Mass/Vol]Or dered By: Jared Guzman on 05-31-2023 MCHC (RBC) [Mass/Vol] 29.7 g/dL 32-36 [facility] No Panel InformationOrdered By: Jared Guzman on 05-31-2023 Estimated GFR (MDRD) Amer 133 mL/min >60 [facility] Comment on above: GFR Calc Estimated GFR (MDRD) Non-Af Amer 110 mL/min >60 [facility] Comment on above: Non- GFR Calc Platelets bldOrdered By: Pet er Karely on 05-31-2023 Platelets (Bld) [#/Vol] 400 10*3/uL 150-450 [facility] Serum or plasma calcium mauricio urement (mass/volume)Ordered By: Jared Guzman on 05-31-2023 Calcium [Mass/Vol] 8.9 mg/dL 8.5-10.1 [facility] Serum or plasma creatinine m easurement (mass/volume)Ordered By: Jared Guzman on 05-31-2023 Creatinine [Mass/Vol] 0.78 mg/dL 0.70-1.30 [facility] Comment on above: The validity of the calculated GFR & GFRAA in patients over 70 years has not been determined. Clinical correlation is essential. Serum or plasma urea nitroge n measurement (mass/volume)Ordered By: Jared Guzman on 05-31-2023 Urea nitrogen [Mass/Vol] 24 mg/dL 7-18 [facility] Thin prep Papanicolaou smear with manual screeningOrdered By: Jared Guzman on 05-31-2023 Thin prep Papanicolaou smear with manual screening 5 5-15 [facility] Whole blood hemoglobin A1c/t otal hemoglobin ratio (mass fraction)Ordered By: Jared Guzman on 05-31-2023 HbA1c (Bld) [Mass fraction] 8.2 % 3.8-5.6 [facility] Comment on above: Normal < 5.7 % Predi abetic 5.7 - 6.4 % Diabetic >or= 6.5 % Please note range changes. Basophil percentageOrdered B y: Jared Guzman on 04-19-2023 Bilirubin [Mass/Vol] 0.20 mg/dL 0.20-1.00 [facility] Comment on above: For patients on eltr ombopag therapy, use of Dimension [place] TBIL is not recommended. Chloride [Moles/Vol] 104 mmol/L 98-107 [facility] Cholesterol [Mass/Vol] 136 mg/dL <200 [facility] Comment on above: <200 mg/dL Desirable 200-240 mg/dL Borderline >240 mg/dL High Risk Glucose [Mass/Vol] 252 mg/dL 74-106 [facility] Comment on above: Glucose result great er than or equal to 200 mg/dLsuggests DIABETES MELLITUS per A.D.A. criteria. Potassium [Moles/Vol] 4.9 mmol/L 3.5-5.1 [facility] Protein [Mass/Vol] 6.5 g/dL 6.4-8.2 [facility] Sodium [Moles/Vol] 136 mmol/L 136-145 [facility] Triglyceride [Mass/Vol] 173 mg/dL <199 [facility] Comment on above: The drugs N-Acetylcy steine and Metamizole may falsely depress this assay.Serum Triglycerides Reference Interval Normal <150 mg/dL Borderline high 150 - 199 mg/dL High 200 - 499 mg/dL Very High > or = 500 mg/dL WBC (Bld) [#/Vol] 7.4 10*3/uL 4.4-11.0 [facility] Blood erythrocytes count (nu mber/volume)Ordered By: Jared Guzman on 04-19-2023 RBC (Bld) [#/Vol] 4.12 10*6/uL 4.6-6.2 [facility] Blood hemoglobin measurement (mass/volume)Ordered By: Jared Guzman on 04-19-2023 Hemoglobin (Bld) [Mass/Vol] 11.2 g/dL 13.0-16.5 [facility] Blood platelet mean volumeOr dered By: Jared Guzman on 04-19-2023 Platelet mean volume (Bld) [Entitic vol] 10.2 fL 6.2-12.0 [facility] Determination of erythrocyte mean corpuscular volume (MCV)Ordered By: Jared Guzman on 04-19-2023 MCV (RBC) [Entitic vol] 90.8 fL 80-94 [facility] Hematocrit Auto (Bld) [Volum e fraction]Ordered By: Jared Guzman on 04-19-2023 Hematocrit (Bld) [Volume fraction] 37.4 % 40-54 [facility] Laboratory - Chemistry and C hemistry - challengeOrdered By: Jared Guzman on 04-19-2023 ALP [Catalytic activity/Vol] 176 U/L 45-117 [facility] ALT [Catalytic activity/Vol] 39 U/L 16-61 [facility] CO2 [Moles/Vol] 26.0 mmol/L 21.0-32.0 [facility] Globulin (S) [Mass/Vol] 3.5 g/dL 2.2-4.2 [facility] Urea nitrogen/Creatinine [Mass ratio] 23.7 mg/mg 10-20 [facility] Laboratory - Hematology and Cell countsOrdered By: Jared Guzman on 04-19-2023 Erythrocyte distribution width (RBC) [Entitic vol] 46.9 fL 35.1-43.9 [facility] Erythrocyte distribution width (RBC) [Ratio] 14.1 % 11.6-14.6 [facility] MCH (RBC) [Entitic mass] 27.2 pg 27.0-32.0 [facility] MCHC Auto (RBC) [Mass/Vol]Or dered By: Jared Guzman on 04-19-2023 MCHC (RBC) [Mass/Vol] 29.9 g/dL 32-36 [facility] No Panel InformationOrdered By: Jared Guzman on 04-19-2023 Estimated GFR (MDRD) Amer 128 mL/min >60 [facility] Comment on above: GFR Calc Estimated GFR (MDRD) Non-Af Amer 106 mL/min >60 [facility] Comment on above: Non- GFR Calc Platelets bldOrdered By: Mike Guzman on 04-19-2023 Platelets (Bld) [#/Vol] 361 10*3/uL 150-450 [facility] Serum or plasma albumin mauricio urement (mass/volume)Ordered By: Jared Guzman on 04-19-2023 Albumin [Mass/Vol] 3.0 g/dL 3.2-5.0 [facility] Serum or plasma albumin/glob ulin mass ratioOrdered By: Jared Guzman on 04-19-2023 Albumin/Globulin [Mass ratio] 0.9 {ratio} 0.9-2.4 [facility] Serum or plasma calcium mauricio urement (mass/volume)Ordered By: Jared Guzman on 04-19-2023 Calcium [Mass/Vol] 8.8 mg/dL 8.5-10.1 [facility] Serum or plasma cholesterol in HDL measurement (mass/volume)Ordered By: Jared Guzman on 04-19-2023 Cholesterol in HDL [Mass/Vol] 33 mg/dL >40 [facility] Comment on above: The drugs N-Acetylcy steine and Metamizole may falsely depress this assay. Reference Range HDL <40 mg/dL Low HDL Cholesterol HDL >or= 60 mg/dL High HDL Cholesterol Serum or plasma cholesterol in VLDL measurement (mass/volume)Ordered By: Jared Guzman on 04-19-2023 Cholesterol in VLDL [Mass/Vol] 35 mg/dL 5-40 [facility] Serum or plasma creatinine m easurement (mass/volume)Ordered By: Jared Guzman on 04-19-2023 Creatinine [Mass/Vol] 0.80 mg/dL 0.70-1.30 [facility] Comment on above: The validity of the calculated GFR & GFRAA in patients over 70 years has not been determined. Clinical correlation is essential. Serum or plasma low density lipoprotein (LDL) cholesterol measurement (mass/volume)Ordered By: Jared Guzman on 04-19-2023 Cholesterol in LDL [Mass/Vol] 68 mg/dL 0-130 [facility] Serum or plasma urea nitroge n measurement (mass/volume)Ordered By: Jared Guzman on 04-19-2023 Urea nitrogen [Mass/Vol] 19 mg/dL 7-18 [facility] Thin prep Papanicolaou smear with manual screeningOrdered By: Jared Guzman on 04-19-2023 Thin prep Papanicolaou smear with manual screening 21 U/L 15-37 [facility] Thin prep Papanicolaou smear with manual screening 6 5-15 [facility] Whole blood hemoglobin A1c/t otal hemoglobin ratio (mass fraction)Ordered By: Jared Guzman on 04-19-2023 HbA1c (Bld) [Mass fraction] 9.0 % 3.8-5.6 [facility] Comment on above: Normal < 5.7 % Predi abetic 5.7 - 6.4 % Diabetic >or= 6.5 % Please note range changes. Whole blood hemoglobin A1c/t otal hemoglobin ratio (mass fraction)Ordered By: Jared Guzman on 03-30-2023 HbA1c (Bld) [Mass fraction] 9.4 % 3.8-5.6 [facility] Comment on above: Normal < 5.7 % Predi abetic 5.7 - 6.4 % Diabetic >or= 6.5 % Please note range changes. Basophil percentageOrdered B y: Jared Guzman on 03-15-2023 Cholesterol [Mass/Vol] 142 mg/dL <200 [facility] Comment on above: <200 mg/dL Desirable 200-240 mg/dL Borderline >240 mg/dL High Risk Triglyceride [Mass/Vol] 149 mg/dL <199 [facility] Comment on above: The drugs N-Acetylcy steine and Metamizole may falsely depress this assay.Serum Triglycerides Reference Interval Normal <150 mg/dL Borderline high 150 - 199 mg/dL High 200 - 499 mg/dL Very High > or = 500 mg/dL Serum or plasma cholesterol in HDL measurement (mass/volume)Ordered By: Jared Guzman on 03-15-2023 Cholesterol in HDL [Mass/Vol] 32 mg/dL >40 [facility] Comment on above: The drugs N-Acetylcy steine and Metamizole may falsely depress this assay. Reference Range HDL <40 mg/dL Low HDL Cholesterol HDL >or= 60 mg/dL High HDL Cholesterol Serum or plasma cholesterol in VLDL measurement (mass/volume)Ordered By: Jared Guzman on 03-15-2023 Cholesterol in VLDL [Mass/Vol] 30 mg/dL 5-40 [facility] Serum or plasma low density lipoprotein (LDL) cholesterol measurement (mass/volume)Ordered By: Jared Guzman on 03-15-2023 Cholesterol in LDL [Mass/Vol] 80 mg/dL 0-130 [facility] Beta Hydroxybutyrateon 03-08 Beta hydroxybutyrate [Mass/Vol] 1.94 mg/dL 0.20 - 2.81 mg/dL [facility] Interpretation and review of laboratory results Normal [facility] CBC W Auto Differential pane l (Bld)Ordered By: Hina Jaramillo on 03-08-2023 Basophils (Bld) [#/Vol] 0.1 10*3/uL 0.0 - 0.2 10*3/uL [facility] Basophils/100 WBC (Bld) 0.5 % 0.0 - 2.0 % [facility] Eosinophils (Bld) [#/Vol] 0.1 10*3/uL 0.0 - 0.5 10*3/uL [facility] Eosinophils/100 WBC (Bld) 0.4 % Low 1.0 - 6.0 % [facility] Erythrocyte distribution width (RBC) [Ratio] 14.6 % High 11.5 - 14.5 % [facility] Hematocrit (Bld) [Volume fraction] 37.8 % [facility] Hemoglobin (Bld) [Mass/Vol] 12.6 g/dL [facility] Interpretation and review of laboratory results Abnormal [facility] Lymphocytes (Bld) [#/Vol] 1.1 10*3/uL 1.0 - 4.3 10*3/uL [facility] Lymphocytes/100 WBC (Bld) 8.4 % Low 20.0 - 40.0 % [facility] MCH (RBC) [Entitic mass] 27.6 pg 26.0 - 34.0 pg [facility] MCHC (RBC) [Mass/Vol] 33.3 % 32.0 - 36.0 % [facility] MCV (RBC) [Entitic vol] 82.8 fL 80.0 - 98.0 fL [facility] Monocytes (Bld) [#/Vol] 0.7 10*3/uL 0.0 - 0.8 10*3/uL [facility] Monocytes/100 WBC (Bld) 5.5 % 2.0 - 10.0 % [facility] Neutrophils (Bld) [#/Vol] 10.9 10*3/uL High 1.8 - 7.0 10*3/uL [facility] Neutrophils/100 WBC (Bld) 85.2 % High 40.0 - 80.0 % [facility] Nucleated RBC/100 WBC (Bld) [Ratio] 0.1 % [facility] Platelet mean volume (Bld) [Entitic vol] 8.2 fL 7.4 - 12.4 fL [facility] Platelets (Bld) [#/Vol] 362 10*3/uL 140 - 440 10*3/uL [facility] RBC (Bld) [#/Vol] 4.56 10*6/uL [facility] WBC (Bld) [#/Vol] 12.8 10*3/uL High 3.6 - 10.7 10*3/uL [facility] CT Abdomen WO contraston 1. No acute abdominal or pelvic process to explain symptoms. Report Dictated on Electronically Signed By: Abner Palacio Electronically Signed Date/Time: 03/08/2023 2:14 PM [facility] Patient Name: WILL ALVARADO : [...] evident. Osseous structures: Mild lumbar degenerative spondylosis. 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 4 mg/dL [facility] Chloride [Moles/Vol] 102 mmol/L 98 - 10 7 mmol/L [facility] CO2 [Moles/Vol] 23 mmol/L 22 - 30 mmol/L [facility] Creatinine [Mass/Vol] 0.56 mg/dL [facility] GFR/1.73 sq M.predicted MDRD (S/P/Bld) [Vol rate/Area] - PINF [facility] Comment on above: Calculation based on the Chronic Kidney Disease Epidemiology Collaboration (CKD-EPI) equation refit without adjustment for race Glucose [Mass/Vol] 197 mg/dL High 70 - 100 mg/dL [facility] Interpretation and review of laboratory results Abnormal [facility] Potassium [Moles/Vol] 4.7 mmol/L 3.5 - 5.1 mmol/L [facility] Protein [Mass/Vol] 7.4 g/dL 6.3 - 8.2 g/dL [facility] Sodium [Moles/Vol] 133 mmol/L Low 135 - 145 mmol/L [facility] Urea nitrogen [Mass/Vol] 20 mg/dL [facility] Lipaseon 03-08-2023 Lipase [Catalytic activity/Vol] 45 U/L 23 - 300 U/L [facility] Lipase [Catalytic activity/V ol]on 03-08-2023 Interpretation and review of laboratory results Normal [facility] No Panel Informationon 03-08 [facility] POCT glucose meteron 023 Glucose [Mass/Vol] 167 mg/dL High 70 - 100 mg/dL [facility] Interpretation and review of laboratory results Abnormal [facility] Performed by: [facility], [address] [place] [address] CLIA ID: [id number] [facility] Basophil percentageOrdered B y: Raj Caicedo on 01-13-2023 Cholesterol [Mass/Vol] 156 mg/dL <200 [facility] Comment on above: <200 mg/dL Desirable 200-240 mg/dL Borderline >240 mg/dL High Risk Triglyceride [Mass/Vol] 235 mg/dL <199 [facility] Comment on above: The drugs N-Acetylcy steine and Metamizole may falsely depress this assay.Serum Triglycerides Reference Interval Normal <150 mg/dL Borderline high 150 - 199 mg/dL High 200 - 499 mg/dL Very High > or = 500 mg/dL Serum or plasma cholesterol in HDL measurement (mass/volume)Ordered By: Raj Caicedo on 01-13-2023 Cholesterol in HDL [Mass/Vol] 37 mg/dL >40 [facility] Comment on above: The drugs N-Acetylcy steine and Metamizole may falsely depress this assay. Reference Range HDL <40 mg/dL Low HDL Cholesterol HDL >or= 60 mg/dL High HDL Cholesterol Serum or plasma cholesterol in VLDL measurement (mass/volume)Ordered By: Raj Caicedo on 01-13-2023 Cholesterol in VLDL [Mass/Vol] 47 mg/dL 5-40 [facility] Serum or plasma low density lipoprotein (LDL) cholesterol measurement (mass/volume)Ordered By: Raj Caicedo on 01-13-2023 Cholesterol in LDL [Mass/Vol] 72 mg/dL 0-130 [facility] Whole blood hemoglobin A1c/t otal hemoglobin ratio (mass fraction)Ordered By: Jared Guzmna on 12-02-2022 HbA1c (Bld) [Mass fraction] 9.5 % 3.8-5.6 [facility] Comment on above: Normal < 5.7 % Predi abetic 5.7 - 6.4 % Diabetic >or= 6.5 % Please note range changes. Basophil percentageOrdered B y: Jared Guzman on 10-27-2022 Bilirubin [Mass/Vol] 0.30 mg/dL 0.20-1.00 [facility] Comment on above: For patients on eltr ombopag therapy, use of Dimension [place] TBIL is not recommended. Chloride [Moles/Vol] 104 mmol/L 98-107 [facility] Cholesterol [Mass/Vol] 150 mg/dL <200 [facility] Comment on above: <200 mg/dL Desirable 200-240 mg/dL Borderline >240 mg/dL High Risk Glucose [Mass/Vol] 217 mg/dL 74-106 [facility] Comment on above: Glucose result great er than or equal to 200 mg/dLsuggests DIABETES MELLITUS per A.D.A. criteria. Potassium [Moles/Vol] 4.9 mmol/L 3.5-5.1 [facility] Protein [Mass/Vol] 6.5 g/dL 6.4-8.2 [facility] Sodium [Moles/Vol] 136 mmol/L 136-145 [facility] Triglyceride [Mass/Vol] 197 mg/dL <199 [facility] Comment on above: The drugs N-Acetylcy steine and Metamizole may falsely depress this assay.Serum Triglycerides Reference Interval Normal <150 mg/dL Borderline high 150 - 199 mg/dL High 200 - 499 mg/dL Very High > or = 500 mg/dL WBC (Bld) [#/Vol] 7.5 10*3/uL 4.4-11.0 [facility] Blood erythrocytes count (nu mber/volume)Ordered By: Jared Guzman on 10-27-2022 RBC (Bld) [#/Vol] 4.03 10*6/uL 4.6-6.2 [facility] Blood hemoglobin measurement (mass/volume)Ordered By: Jared Guzman on 10-27-2022 Hemoglobin (Bld) [Mass/Vol] 11.3 g/dL 13.0-16.5 [facility] Blood platelet mean volumeOr dered By: Jared Guzman on 10-27-2022 Platelet mean volume (Bld) [Entitic vol] 10.1 fL 6.2-12.0 [facility] Determination of erythrocyte mean corpuscular volume (MCV)Ordered By: Jared Guzman on 10-27-2022 MCV (RBC) [Entitic vol] 89.3 fL 80-94 [facility] Hematocrit Auto (Bld) [Volum e fraction]Ordered By: Jared Guzman on 10-27-2022 Hematocrit (Bld) [Volume fraction] 36.0 % 40-54 [facility] Laboratory - Chemistry and C hemistry - challengeOrdered By: Jared Guzman on 10-27-2022 ALP [Catalytic activity/Vol] 179 U/L 45-117 [facility] ALT [Catalytic activity/Vol] 41 U/L 16-61 [facility] CO2 [Moles/Vol] 26.0 mmol/L 21.0-32.0 [facility] Globulin (S) [Mass/Vol] 3.4 g/dL 2.2-4.2 [facility] Urea nitrogen/Creatinine [Mass ratio] 27.7 mg/mg 10-20 [facility] Laboratory - Hematology and Cell countsOrdered By: Jared Guzman on 10-27-2022 Erythrocyte distribution width (RBC) [Entitic vol] 45.3 fL 35.1-43.9 [facility] Erythrocyte distribution width (RBC) [Ratio] 13.8 % 11.6-14.6 [facility] MCH (RBC) [Entitic mass] 28.0 pg 27.0-32.0 [facility] MCHC Auto (RBC) [Mass/Vol]Or dered By: Jared Guzman on 10-27-2022 MCHC (RBC) [Mass/Vol] 31.4 g/dL 32-36 [facility] No Panel InformationOrdered By: Jared Guzman on 10-27-2022 Estimated GFR (MDRD) Amer 123 mL/min >60 [facility] Comment on above: GFR Calc Estimated GFR (MDRD) Non-Af Amer 102 mL/min >60 [facility] Comment on above: Non- GFR Calc Platelets bldOrdered By: Mike Guzman on 10-27-2022 Platelets (Bld) [#/Vol] 343 10*3/uL 150-450 [facility] Serum or plasma albumin mauricio urement (mass/volume)Ordered By: Jared Guzman on 10-27-2022 Albumin [Mass/Vol] 3.1 g/dL 3.2-5.0 [facility] Serum or plasma albumin/glob ulin mass ratioOrdered By: Jared Guzman on 10-27-2022 Albumin/Globulin [Mass ratio] 0.9 {ratio} 0.9-2.4 [facility] Serum or plasma calcium mauricio urement (mass/volume)Ordered By: Jared Guzman on 10-27-2022 Calcium [Mass/Vol] 9.0 mg/dL 8.5-10.1 [facility] Serum or plasma cholesterol in HDL measurement (mass/volume)Ordered By: Jared Guzman on 10-27-2022 Cholesterol in HDL [Mass/Vol] 34 mg/dL >40 [facility] Comment on above: The drugs N-Acetylcy steine and Metamizole may falsely depress this assay. Reference Range HDL <40 mg/dL Low HDL Cholesterol HDL >or= 60 mg/dL High HDL Cholesterol Serum or plasma cholesterol in VLDL measurement (mass/volume)Ordered By: Jared Guzman on 10-27-2022 Cholesterol in VLDL [Mass/Vol] 39 mg/dL 5-40 [facility] Serum or plasma creatinine m easurement (mass/volume)Ordered By: Jared Guzman on 10-27-2022 Creatinine [Mass/Vol] 0.83 mg/dL 0.70-1.30 [facility] Comment on above: The validity of the calculated GFR & GFRAA in patients over 70 years has not been determined. Clinical correlation is essential. Serum or plasma low density lipoprotein (LDL) cholesterol measurement (mass/volume)Ordered By: Jared Guzman on 10-27-2022 Cholesterol in LDL [Mass/Vol] 77 mg/dL 0-130 [facility] Serum or plasma urea nitroge n measurement (mass/volume)Ordered By: Jared Guzman on 10-27-2022 Urea nitrogen [Mass/Vol] 23 mg/dL 7-18 [facility] Thin prep Papanicolaou smear with manual screeningOrdered By: Jared Guzman on 10-27-2022 Thin prep Papanicolaou smear with manual screening 16 U/L 15-37 [facility] Thin prep Papanicolaou smear with manual screening 6 5-15 [facility] Basophil percentageon 2021 Chloride [Moles/Vol] 105 mmol/L 98-107 [facility] Work Phone: Glucose [Mass/Vol] 188 mg/dL 74-106 [facility] Work Phone: Comment on above: Fasting Glucose resu lt greater than or equal to 126 mg/dL suggests DIABETES MELLITUS per A.D.A. criteria. Potassium [Moles/Vol] 5.1 mmol/L 3.5-5.1 [facility] Work Phone: Sodium [Moles/Vol] 134 mmol/L 136-145 [facility] Work Phone: WBC (Bld) [#/Vol] 9.0 10*3/uL 4.4-11.0 [facility] Work Phone: Blood erythrocytes count (nu mber/volume)on 06-24-2022 RBC (Bld) [#/Vol] 4.12 10*6/uL 4.6-6.2 [facility] Work Phone: Blood hemoglobin measurement (mass/volume)on 06-24-2022 Hemoglobin (Bld) [Mass/Vol] 11.5 g/dL 13.0-16.5 [facility] Work Phone: Blood platelet mean volumeon 06-24-2022 Platelet mean volume (Bld) [Entitic vol] 10.7 fL 6.2-12.0 [facility] Work Phone: Determination of erythrocyte mean corpuscular volume (MCV)on 06-24-2022 MCV (RBC) [Entitic vol] 87.9 fL 80-94 [facility] Work Phone: Hematocrit Auto (Bld) [Volum e fraction]on 06-24-2022 Hematocrit (Bld) [Volume fraction] 36.2 % 40-54 [facility] Work Phone: Laboratory - Chemistry and C hemistry - challengeon 06-24-2022 CO2 [Moles/Vol] 22.0 mmol/L 21.0-32.0 [facility] Work Phone: Urea nitrogen/Creatinine [Mass ratio] 42.1 mg/mg 10-20 [facility] Work Phone: Laboratory - Hematology and Cell countson 06-24-2022 Erythrocyte distribution width (RBC) [Entitic vol] 45.2 fL 35.1-43.9 [facility] Work Phone: Erythrocyte distribution width (RBC) [Ratio] 14.1 % 11.6-14.6 [facility] Work Phone: MCH (RBC) [Entitic mass] 27.9 pg 27.0-32.0 [facility] Work Phone: MCHC Auto (RBC) [Mass/Vol]on 06-24-2022 MCHC (RBC) [Mass/Vol] 31.8 g/dL 32-36 [facility] Work Phone: No Panel Informationon 06-24 Estimated GFR (MDRD) Amer 119 mL/min >60 [facility] Work Phone: Comment on above: GFR Calc Estimated GFR (MDRD) Non-Af Amer 99 mL/min >60 [facility] Work Phone: Comment on above: Non- GFR Calc Platelets bldon 06-24-2022 Platelets (Bld) [#/Vol] 396 10*3/uL 150-450 [facility] Work Phone: Serum or plasma calcium mauricio urement (mass/volume)on 06-24-2022 Calcium [Mass/Vol] 9.1 mg/dL 8.5-10.1 [facility] Work Phone: Serum or plasma creatinine m easurement (mass/volume)on 06-24-2022 Creatinine [Mass/Vol] 0.86 mg/dL 0.70-1.30 [facility] Work Phone: Comment on above: The validity of the calculated GFR & GFRAA in patients over 70 years has not been determined. Clinical correlation is essential. Serum or plasma urea nitroge n measurement (mass/volume)on 06-24-2022 Urea nitrogen [Mass/Vol] 36 mg/dL - [facility] Work Phone: Thin prep Papanicolaou smear with manual screeningon 06-24-2022 Thin prep Papanicolaou smear with manual screening 7 5-15 [facility] Work Phone: Basophil percentageon 2021 Bilirubin [Mass/Vol] 0.20 mg/dL 0.20-1.00 [facility] Work Phone: Comment on above: For patients on eltr ombopag therapy, use of Dimension [place] TBIL is not recommended. Chloride [Moles/Vol] 104 mmol/L 98-107 [facility] Work Phone: Glucose [Mass/Vol] 299 mg/dL 74-106 [facility] Work Phone: Comment on above: Glucose result great er than or equal to 200 mg/dLsuggests DIABETES MELLITUS per A.D.A. criteria. Potassium [Moles/Vol] 5.0 mmol/L 3.5-5.1 [facility] Work Phone: Protein [Mass/Vol] 6.7 g/dL 6.4-8.2 [facility] Work Phone: Sodium [Moles/Vol] 135 mmol/L 136-145 [facility] Work Phone: WBC (Bld) [#/Vol] 7.9 10*3/uL 4.4-11.0 [facility] Work Phone: Blood erythrocytes count (nu mber/volume)on 05-25-2022 RBC (Bld) [#/Vol] 3.86 10*6/uL 4.6-6.2 [facility] Work Phone: Blood hemoglobin measurement (mass/volume)on 05-25-2022 Hemoglobin (Bld) [Mass/Vol] 10.5 g/dL 13.0-16.5 [facility] Work Phone: Blood platelet mean volumeon 05-25-2022 Platelet mean volume (Bld) [Entitic vol] 10.5 fL 6.2-12.0 [facility] Work Phone: Determination of erythrocyte mean corpuscular volume (MCV)on 05-25-2022 MCV (RBC) [Entitic vol] 88.1 fL 80-94 [facility] Work Phone: Hematocrit Auto (Bld) [Volum e fraction]on 05-25-2022 Hematocrit (Bld) [Volume fraction] 34.0 % 40-54 [facility] Work Phone: Laboratory - Chemistry and C hemistry - challengeon 05-25-2022 ALP [Catalytic activity/Vol] 187 U/L 45-117 [facility] Work Phone: ALT [Catalytic activity/Vol] 37 U/L 16-61 [facility] Work Phone: CO2 [Moles/Vol] 25.0 mmol/L 21.0-32.0 [facility] Work Phone: Globulin (S) [Mass/Vol] 3.8 g/dL 2.2-4.2 [facility] Work Phone: Urea nitrogen/Creatinine [Mass ratio] 27.5 mg/mg 10-20 [facility] Work Phone: Laboratory - Hematology and Cell countson 05-25-2022 Erythrocyte distribution width (RBC) [Entitic vol] 45.1 fL 35.1-43.9 [facility] Work Phone: Erythrocyte distribution width (RBC) [Ratio] 14.1 % 11.6-14.6 [facility] Work Phone: MCH (RBC) [Entitic mass] 27.2 pg 27.0-32.0 [facility] Work Phone: MCHC Auto (RBC) [Mass/Vol]on 05-25-2022 MCHC (RBC) [Mass/Vol] 30.9 g/dL 32-36 [facility] Work Phone: No Panel Informationon 05-25 Estimated GFR (MDRD) Amer 123 mL/min >60 [facility] Work Phone: Comment on above: GFR Calc Estimated GFR (MDRD) Non-Af Amer 101 mL/min >60 [facility] Work Phone: Comment on above: Non- GFR Calc Platelets bldon 05-25-2022 Platelets (Bld) [#/Vol] 320 10*3/uL 150-450 [facility] Work Phone: Serum or plasma albumin mauricio urement (mass/volume)on 05-25-2022 Albumin [Mass/Vol] 2.9 g/dL 3.2-5.0 [facility] Work Phone: Serum or plasma albumin/glob ulin mass ratioon 05-25-2022 Albumin/Globulin [Mass ratio] 0.8 {ratio} 0.9-2.4 [facility] Work Phone: Serum or plasma calcium mauricio urement (mass/volume)on 05-25-2022 Calcium [Mass/Vol] 9.0 mg/dL 8.5-10.1 [facility] Work Phone: Serum or plasma creatinine m easurement (mass/volume)on 05-25-2022 Creatinine [Mass/Vol] 0.84 mg/dL 0.70-1.30 [facility] Work Phone: Comment on above: The validity of the calculated GFR & GFRAA in patients over 70 years has not been determined. Clinical correlation is essential. Serum or plasma urea nitroge n measurement (mass/volume)on 05-25-2022 Urea nitrogen [Mass/Vol] 23 mg/dL -18 [facility] Work Phone: Thin prep Papanicolaou smear with manual screeningon 05-25-2022 Thin prep Papanicolaou smear with manual screening 14 U/L 15-37 [facility] Work Phone: Thin prep Papanicolaou smear with manual screening 6 5-15 [facility] Work Phone: Basophil percentageon 2021 Cholesterol [Mass/Vol] 135 mg/dL <200 [facility] Work Phone: Comment on above: <200 mg/dL Desirable 200-240 mg/dL Borderline >240 mg/dL High Risk Triglyceride [Mass/Vol] 183 mg/dL <199 [facility] Work Phone: Comment on above: The drugs N-Acetylcy steine and Metamizole may falsely depress this assay.Serum Triglycerides Reference Interval Normal <150 mg/dL Borderline high 150 - 199 mg/dL High 200 - 499 mg/dL Very High > or = 500 mg/dL Serum or plasma cholesterol in HDL measurement (mass/volume)on 04-27-2022 Cholesterol in HDL [Mass/Vol] 35 mg/dL >40 [facility] Work Phone: Comment on above: The drugs N-Acetylcy steine and Metamizole may falsely depress this assay. Reference Range HDL <40 mg/dL Low HDL Cholesterol HDL >or= 60 mg/dL High HDL Cholesterol Serum or plasma cholesterol in VLDL measurement (mass/volume)on 04-27-2022 Cholesterol in VLDL [Mass/Vol] 37 mg/dL 5-40 [facility] Work Phone: Serum or plasma low density lipoprotein (LDL) cholesterol measurement (mass/volume)on 04-27-2022 Cholesterol in LDL [Mass/Vol] 63 mg/dL 0-130 [facility] Work Phone: Basophil percentageon 2021 Bilirubin [Mass/Vol] 0.30 mg/dL 0.20-1.00 [facility] Work Phone: Comment on above: For patients on eltr ombopag therapy, use of Dimension [place] TBIL is not recommended. Chloride [Moles/Vol] 105 mmol/L 98-107 [facility] Work Phone: Glucose [Mass/Vol] 260 mg/dL 74-106 [facility] Work Phone: Comment on above: Glucose result great er than or equal to 200 mg/dLsuggests DIABETES MELLITUS per A.D.A. criteria. Potassium [Moles/Vol] 4.7 mmol/L 3.5-5.1 [facility] Work Phone: Protein [Mass/Vol] 6.8 g/dL 6.4-8.2 [facility] Work [facility]: Sodium [Moles/Vol] 134 mmol/L 136-145 [facility] Work Phone: WBC (Bld) [#/Vol] 8.9 10*3/uL 4.4-11.0 [facility] Work Phone: Blood erythrocytes count (nu mber/volume)on 04-13-2022 RBC (Bld) [#/Vol] 3.91 10*6/uL 4.6-6.2 [facility]: Blood hemoglobin measurement (mass/volume)on 04-13-2022 Hemoglobin (Bld) [Mass/Vol] 11.0 g/dL 13.0-16.5 [facility] Work Phone: Blood platelet mean volumeon 04-13-2022 Platelet mean volume (Bld) [Entitic vol] 10.3 fL 6.2-12.0 [facility] Work Phone: Determination of erythrocyte mean corpuscular volume (MCV)on 04-13-2022 MCV (RBC) [Entitic vol] 87.7 fL 80-94 [facility] Work Phone: Hematocrit Auto (Bld) [Volum e fraction]on 04-13-2022 Hematocrit (Bld) [Volume fraction] 34.3 % 40-54 [facility] Work Phone: Laboratory - Chemistry and C hemistry - challengeon 04-13-2022 ALP [Catalytic activity/Vol] 189 U/L 45-117 [facility] Work Phone: ALT [Catalytic activity/Vol] 43 U/L 16-61 [facility] Work Phone: CO2 [Moles/Vol] 23.0 mmol/L 21.0-32.0 [facility] Work Phone: Globulin (S) [Mass/Vol] 3.6 g/dL 2.2-4.2 [facility] Work Phone: Urea nitrogen/Creatinine [Mass ratio] 34.9 mg/mg 10-20 [facility] Work Phone: Laboratory - Hematology and Cell countson 04-13-2022 Erythrocyte distribution width (RBC) [Entitic vol] 42.3 fL 35.1-43.9 [facility] Work Phone: Erythrocyte distribution width (RBC) [Ratio] 13.2 % 11.6-14.6 [facility] Work Phone: MCH (RBC) [Entitic mass] 28.1 pg 27.0-32.0 [facility] Work Phone: MCHC Auto (RBC) [Mass/Vol]on 04-13-2022 MCHC (RBC) [Mass/Vol] 32.1 g/dL 32-36 [facility] Work Phone: No Panel Informationon 04-13 Estimated GFR (MDRD) Amer 134 mL/min >60 [facility] Work Phone: Comment on above: GFR Calc Estimated GFR (MDRD) Non-Af Amer 111 mL/min >60 [facility] Work Phone: Comment on above: Non- GFR Calc Platelets bldon 04-13-2022 Platelets (Bld) [#/Vol] 310 10*3/uL 150-450 [facility] Work Phone: Serum or plasma albumin mauricio urement (mass/volume)on 04-13-2022 Albumin [Mass/Vol] 3.2 g/dL 3.2-5.0 [facility] Work Phone: Serum or plasma albumin/glob ulin mass ratioon 04-13-2022 Albumin/Globulin [Mass ratio] 0.9 {ratio} 0.9-2.4 [facility] Work Phone: Serum or plasma calcium mauricio urement (mass/volume)on 04-13-2022 Calcium [Mass/Vol] 9.1 mg/dL 8.5-10.1 [facility] Work Phone: Serum or plasma creatinine m easurement (mass/volume)on 04-13-2022 Creatinine [Mass/Vol] 0.77 mg/dL 0.70-1.30 [facility] Work Phone: Comment on above: The validity of the calculated GFR & GFRAA in patients over 70 years has not been determined. Clinical correlation is essential. Serum or plasma urea nitroge n measurement (mass/volume)on 04-13-2022 Urea nitrogen [Mass/Vol] 27 mg/dL 7-18 [facility] Work Phone: Thin prep Papanicolaou smear with manual screeningon 04-13-2022 Thin prep Papanicolaou smear with manual screening 16 U/L 15-37 [facility] Work Phone: Thin prep Papanicolaou smear with manual screening 6 5-15 [facility] Work Phone: Basophil percentageon 2021 Chloride [Moles/Vol] 105 mmol/L 98-107 [facility] Work Phone: Glucose [Mass/Vol] 284 mg/dL 74-106 [facility] Work Phone: Comment on above: Glucose result great er than or equal to 200 mg/dLsuggests DIABETES MELLITUS per A.D.A. criteria. Potassium [Moles/Vol] 4.6 mmol/L 3.5-5.1 [facility] Work Phone: Sodium [Moles/Vol] 134 mmol/L 136-145 [facility] Work Phone: WBC (Bld) [#/Vol] 7.7 10*3/uL 4.4-11.0 [facility] Work Phone: Blood erythrocytes count (nu mber/volume)on 03-02-2022 RBC (Bld) [#/Vol] 3.83 10*6/uL 4.6-6.2 [facility] Work Phone: Blood hemoglobin measurement (mass/volume)on 03-02-2022 Hemoglobin (Bld) [Mass/Vol] 10.7 g/dL 13.0-16.5 [facility] Work Phone: Blood platelet mean volumeon 03-02-2022 Platelet mean volume (Bld) [Entitic vol] 10.6 fL 6.2-12.0 [facility] Work Phone: Determination of erythrocyte mean corpuscular volume (MCV)on 03-02-2022 MCV (RBC) [Entitic vol] 90.1 fL 80-94 [facility] Work Phone: Hematocrit Auto (Bld) [Volum e fraction]on 03-02-2022 Hematocrit (Bld) [Volume fraction] 34.5 % 40-54 [facility] Work Phone: Laboratory - Chemistry and C hemistry - challengeon 03-02-2022 CO2 [Moles/Vol] 22.0 mmol/L 21.0-32.0 [facility] Work Phone: Urea nitrogen/Creatinine [Mass ratio] 31.8 mg/mg 10-20 [facility] Work Phone: Laboratory - Hematology and Cell countson 03-02-2022 Erythrocyte distribution width (RBC) [Entitic vol] 44.5 fL 35.1-43.9 [facility] Work Phone: Erythrocyte distribution width (RBC) [Ratio] 13.5 % 11.6-14.6 [facility] Work Phone: MCH (RBC) [Entitic mass] 27.9 pg 27.0-32.0 [facility] Work Phone: MCHC Auto (RBC) [Mass/Vol]on 03-02-2022 MCHC (RBC) [Mass/Vol] 31.0 g/dL 32-36 [facility] Work Phone: No Panel Informationon 03-02 Estimated GFR (MDRD) Amer 132 mL/min >60 [facility] Work Phone: Comment on above: GFR Calc Estimated GFR (MDRD) Non-Af Amer 109 mL/min >60 [facility] Work Phone: Comment on above: Non- GFR Calc Platelets bldon 03-02-2022 Platelets (Bld) [#/Vol] 310 10*3/uL 150-450 [facility] Work Phone: Serum or plasma calcium mauricio urement (mass/volume)on 03-02-2022 Calcium [Mass/Vol] 9.0 mg/dL 8.5-10.1 [facility] Work Phone: Serum or plasma creatinine m easurement (mass/volume)on 03-02-2022 Creatinine [Mass/Vol] 0.79 mg/dL 0.70-1.30 [facility] Work Phone: Comment on above: The validity of the calculated GFR & GFRAA in patients over 70 years has not been determined. Clinical correlation is essential. Serum or plasma urea nitroge n measurement (mass/volume)on 03-02-2022 Urea nitrogen [Mass/Vol] 25 mg/dL 7-18 [facility] Work Phone: Thin prep Papanicolaou smear with manual screeningon 03-02-2022 Thin prep Papanicolaou smear with manual screening 7 5-15 [facility] Work Phone: Basophil percentageon 2021 Bilirubin [Mass/Vol] 0.30 mg/dL 0.20-1.00 [facility] Work Phone: Comment on above: For patients on eltr ombopag therapy, use of Dimension [place] TBIL is not recommended. Chloride [Moles/Vol] 103 mmol/L 98-107 [facility] Work Phone: Glucose [Mass/Vol] 334 mg/dL 74-106 [facility] Work Phone: Comment on above: Glucose result great er than or equal to 200 mg/dLsuggests DIABETES MELLITUS per A.D.A. criteria. Potassium [Moles/Vol] 5.0 mmol/L 3.5-5.1 [facility] Work Phone: Protein [Mass/Vol] 6.8 g/dL 6.4-8.2 [facility] Work Phone: [phone] Sodium [Moles/Vol] 135 mmol/L 136-145 [facility] Work Phone: WBC (Bld) [#/Vol] 7.0 10*3/uL 4.4-11.0 [facility] Work Phone: Blood erythrocytes count (nu mber/volume)on 01-29-2022 RBC (Bld) [#/Vol] 3.91 10*6/uL 4.6-6.2 [facility] Work Phone: Blood hemoglobin measurement (mass/volume)on 01-29-2022 Hemoglobin (Bld) [Mass/Vol] 10.9 g/dL 13.0-16.5 [facility] Work Phone: Blood platelet mean volumeon 01-29-2022 Platelet mean volume (Bld) [Entitic vol] 10.9 fL 6.2-12.0 [facility] Work Phone: Determination of erythrocyte mean corpuscular volume (MCV)on 01-29-2022 MCV (RBC) [Entitic vol] 89.8 fL 80-94 [facility] Work Phone: Hematocrit Auto (Bld) [Volum e fraction]on 01-29-2022 Hematocrit (Bld) [Volume fraction] 35.1 % 40-54 [facility] Work Phone: Laboratory - Chemistry and C hemistry - challengeon 01-29-2022 ALP [Catalytic activity/Vol] 194 U/L 45-117 [facility] Work Phone: ALT [Catalytic activity/Vol] 38 U/L 16-61 [facility] Work Phone: CO2 [Moles/Vol] 27.0 mmol/L 21.0-32.0 [facility] Work Phone: Globulin (S) [Mass/Vol] 3.5 g/dL 2.2-4.2 [facility] Work Phone: Urea nitrogen/Creatinine [Mass ratio] 20.6 mg/mg 10-20 [facility] Work Phone: Laboratory - Hematology and Cell countson 01-29-2022 Erythrocyte distribution width (RBC) [Entitic vol] 43.8 fL 35.1-43.9 [facility] Work Phone: Erythrocyte distribution width (RBC) [Ratio] 13.3 % 11.6-14.6 [facility] Work Phone: MCH (RBC) [Entitic mass] 27.9 pg 27.0-32.0 [facility] Work Phone: MCHC Auto (RBC) [Mass/Vol]on 01-29-2022 MCHC (RBC) [Mass/Vol] 31.1 g/dL 32-36 [facility] Work Phone: No Panel Informationon 01-29 Estimated GFR (MDRD) Amer 117 mL/min >60 [facility] Work Phone: Comment on above: GFR Calc Estimated GFR (MDRD) Non-Af Amer 97 mL/min >60 [facility] Work Phone: Comment on above: Non- GFR Calc Platelets bldon 01-29-2022 Platelets (Bld) [#/Vol] 306 10*3/uL 150-450 [facility] Work Phone: Serum or plasma albumin mauricio urement (mass/volume)on 01-29-2022 Albumin [Mass/Vol] 3.3 g/dL 3.2-5.0 [facility] Work Phone: Serum or plasma albumin/glob ulin mass ratioon 01-29-2022 Albumin/Globulin [Mass ratio] 0.9 {ratio} 0.9-2.4 [facility] Work Phone: Serum or plasma calcium mauricio urement (mass/volume)on 01-29-2022 Calcium [Mass/Vol] 8.8 mg/dL 8.5-10.1 [facility] Work Phone: Serum or plasma creatinine m easurement (mass/volume)on 01-29-2022 Creatinine [Mass/Vol] 0.87 mg/dL 0.70-1.30 [facility] Work Phone: Comment on above: The validity of the calculated GFR & GFRAA in patients over 70 years has not been determined. Clinical correlation is essential. Serum or plasma urea nitroge n measurement (mass/volume)on 01-29-2022 Urea nitrogen [Mass/Vol] 18 mg/dL 7-18 [facility] Work Phone: Thin prep Papanicolaou smear with manual screeningon 01-29-2022 Thin prep Papanicolaou smear with manual screening 11 U/L 15-37 [facility] Work Phone: Thin prep Papanicolaou smear with manual screening 5 5-15 [facility] Work Phone: Whole blood hemoglobin A1c/t otal hemoglobin ratio (mass fraction)on 01-29-2022 HbA1c (Bld) [Mass fraction] 8.8 % 3.8-5.6 [facility] Work Phone: Comment on above: Normal < 5.7 % Predi abetic 5.7 - 6.4 % Diabetic >or= 6.5 % Please note range changes. Basophil percentageon 2021 Cholesterol [Mass/Vol] 169 mg/dL <200 [facility] Work Phone: Comment on above: <200 mg/dL Desirable 200-240 mg/dL Borderline >240 mg/dL High Risk Triglyceride [Mass/Vol] 177 mg/dL <199 [facility] Work Phone: Comment on above: The drugs N-Acetylcy steine and Metamizole may falsely depress this assay.Serum Triglycerides Reference Interval Normal <150 mg/dL Borderline high 150 - 199 mg/dL High 200 - 499 mg/dL Very High > or = 500 mg/dL Serum or plasma cholesterol in HDL measurement (mass/volume)on 01-19-2022 Cholesterol in HDL [Mass/Vol] 35 mg/dL >40 [facility] Work Phone: Comment on above: The drugs N-Acetylcy steine and Metamizole may falsely depress this assay. Reference Range HDL <40 mg/dL Low HDL Cholesterol HDL >or= 60 mg/dL High HDL Cholesterol Serum or plasma cholesterol in VLDL measurement (mass/volume)on 01-19-2022 Cholesterol in VLDL [Mass/Vol] 35 mg/dL 5-40 [facility] Work Phone: Serum or plasma low density lipoprotein (LDL) cholesterol measurement (mass/volume)on 01-19-2022 Cholesterol in LDL [Mass/Vol] 99 mg/dL 0-130 [facility] Work Phone: Basic Metabolic Panelon 12-09 Calcium [Mass/Vol] 9.4 mg/dL Normal 8.4-10.4 [facility] Comment on above: Performed By: #### B MP3, HGHCT #### [facility] [address] [place] [address] Glucose [Mass/Vol] 119 mg/dL High 70-100 [facility] Comment on above: Performed By: #### B MP3, HGHCT #### [facility] [address] [place] [address] Urea nitrogen [Mass/Vol] 19 mg/dL Normal 9-20 [facility] Comment on above: Performed By: #### B MP3, HGHCT #### [facility] [address] [place] [address] Anion gap [Moles/Vol] 8 mmol/L Normal 3-13 [facility] Comment on above: Performed By: #### B MP3, HGHCT #### [facility] [address] [place] [address] CO2 [Moles/Vol] 25 mmol/L Normal 22-30 [facility] Comment on above: Performed By: #### B MP3, HGHCT #### [facility] [address] [place] [id number] Creatinine [Mass/Vol] 0.73 mg/dL Normal 0.52-1.25 [facility] Comment on above: Performed By: #### Olvin CARLSON HGHCT #### [facility] [address] [place] [address] eGFR OTHER > 90.0 Normal >60 [facility] Comment on above: Result Comment: KDIG O [...] renal tubular creatinine secretion. Performed By: #### Olvin CARLSON HGHCT #### [facility] [address] [place] [id number] GFR/1.73 sq M.predicted among blacks MDRD (S/P/Bld) [Vol rate/Area] mL/min/{1.73_m2} Normal >60 [facility] Comment on above: Performed By: #### Olvin CARLSON, HGHCT #### [facility] [address] [place] [id number] Potassium [Moles/Vol] 4.6 mmol/L Normal 3.5-5.1 [facility] Comment on above: Performed By: #### Olvin YEPEZ3, HGHCT #### [facility] [address] [place] [id number] Chloride [Moles/Vol] 105 mmol/L Normal 98-107 [facility] Comment on above: Performed By: #### Olvin YEPEZ3, HGHCT #### [facility] [address] [place] [id number] Sodium [Moles/Vol] 137 mmol/L Normal 135-145 [facility] Comment on above: Performed By: #### B MP3, HGHCT #### [facility] [address] [place] [id number] Glucose,Bedsideon 12-23-2021 Glucose [Mass/Vol] 122 mg/dL High 70-100 [facility] Comment on above: Result Comment: Test performed by glucose meter. Results may be 10%-15% lower than serum/plasma values. (CLIA ID [id number]) Performed By: #### B GLU #### [facility] [address] [place] [id number] Glucose [Mass/Vol] 107 mg/dL High 70-100 [facility] Comment on above: Result Comment: Test performed by glucose meter. Results may be 10%-15% lower than serum/plasma values. (CLIA ID [id number]) Performed By: #### B GLU #### [facility] [address] [place] [id number] Hemoglobin AND Hematocriton 12-23-2021 Hematocrit (Bld) [Volume fraction] 35.7 % Normal 35.0-47.0 [facility] Comment on above: Performed By: #### B MP3, HGHCT #### [facility] [address] [place] [id number] Hemoglobin (Bld) [Mass/Vol] 11.8 g/dL Normal 11.7-16.0 [facility] Comment on above: Performed By: #### B MP3, HGHCT #### [facility] [address] [place] [id number] Op Noteon 12-23-2021 Op Note Operative Note Patient: Will Jacinto Date of : 1965 Date of Procedure: 12/23/21 Pre-Op Diagnosis: endometrial hyperplasia Post-Op Diagnosis: Same D&C/hysteroscopy Lvn: * Surgery not found * Anesthesia: general [...] thoroughly curetted and specimen sent. Procedure terminated. [facility] Surgical Pathologyon 022 Surgical Pathology [id number] [facility] PATHOLOGY AND LABORATORY MEDICINE [address] [place] [address] Fax - FINAL SURGICAL PATHOLOGY REPORT NAME: WILL JACINTO : 1965 56 Y F BILLING NO.: [id number] LOCATION: [facility] 18 PROCEDURE 12/23/2021 DATE: SURGEON: MICHAEL CUNNINGHAM M.D. RECEIVED 12/23/2021 DATE: ATTENDING: MICHAEL CUNNINGHAM M.D. REPORT DATE: 12/24/2021 COPIES TO: DIAGNOSIS: ENDOMETRIUM, CURETTAGE - INACTIVE CYSTICALLY DILATED ENDOMETRIAL GLANDS AND POLYPOID PORTIONS OF ENDOMETRIUM WITH WEAK EXOGENOUS HORMONE EFFECT. -FOCAL FEATURES SUGGESTIVE OF BENIGN ENDOMETRIAL POLYP. -PORTIONS OF BENIGN MYOMETRIAL SMOOTH MUSCLE. -BENIGN ECTOCERVICAL SQUAMOUS EPITHELIUM. -NEGATIVE FOR HYPERPLASIA OR MALIGNANCY. ARK/ARK Signature> Lester COLBERT, PhD CLINICAL INFORMATION: N85.02. SPECIMEN: ENDOMETRIAL CURETTINGS GROSS DESCRIPTION: Received in formalin labeled "endocervical curettings" are multiple irregularly-shaped fragments of pink-reddy to red-brown soft tissue and hemorrhagic material aggregating to 1.5 x 1.5 x 0.4 cm. All submitted in one cassette. BS/LS3 Disclaimer: The following statement applies to all immunohistochemistry, in situ hybridization, molecular studies, and immunofluorescence testing. The use of one or more reagents in the above tests is regulated as an analyte specific reagent (ASR). These tests were developed and their performance characteristics determined by the clinical laboratories of [facility]. They have not been cleared by the [...] negativity on decalcified specimens. Case reviewed at [facility] [address] [place] [address]. DEPARTMENT OF PATHOLOGY AND LABORATORY MEDICINE [place], [place] [address] [email or web address] Normal [facility] Comprehensive Metabolic Pane gigi 12-08-2020 Albumin [Mass/Vol] 4.0 g/dL 3.5 - 5 g/dL [place] ALP [Catalytic activity/Vol] 121 U/L 38 - 126 U/L [place] ALT [Catalytic activity/Vol] 47 U/L High 0 - 34 U/L [place] Comment on above: The ALT test is perf ormed by an updated assay method. Please note that the reference intervals have been changed and are now sex specific. Anion gap [Moles/Vol] 6 mmol/L [place], [place] AST [Catalytic activity/Vol] 25 U/L 15 - 46 U/L [place] Bilirubin Ql (U) 0.6 mg/dL 0.2 - 1.3 mg/dL [place] Calcium [Mass/Vol] 9.7 mg/dL 8.4 - 10. 4 mg/dL [place] Chloride [Moles/Vol] 95 mmol/L Low 98 - 10 7 mmol/L [place] CO2 [Moles/Vol] 30 mmol/L 22 - 30 mmol/L [place] Creatinine [Mass/Vol] 0.64 mg/dL 0.52 - 1.25 mg/dL [place] EGFR IF NonAfrican Vincentian >90.0 >60 mL/min [place] Comment on above: KDIGO guidelines pro [...] MDRD (S/P/Bld) [Vol rate/Area] mL/min/{1.73_m2} >60 mL/min [place] Glucose [Mass/Vol] 248 mg/dL High 70 - 100 mg/dL [place] Interpretation and review of laboratory results Abnormal [place] Potassium [Moles/Vol] 4.7 mmol/L 3.5 - 5.1 mmol/L [place] Protein [Mass/Vol] 6.8 g/dL 6.3 - 8.2 g/dL [place] Sodium [Moles/Vol] 132 mmol/L Low 135 - 145 mmol/L [place] Urea nitrogen [Mass/Vol] 12 mg/dL 7 - 20 mg/dL [place] Hemogram (CBC) w/Auto Diffon 12-08-2020 Absolute Baso # 0.1 10*3/uL 0 - 0.2 10*3/uL [place] Absolute Neut # 6.1 10*3/uL 1.8 - 7 10*3/uL [place] Basophils/100 WBC (Bld) 0.8 % 0 - 2 % M [place] Eosinophils (Bld) [#/Vol] 0.1 10*3/uL 0 - 0.5 10*3/uL [place] Eosinophils/100 WBC (Bld) 1.0 % 1 - 6 % [place] Erythrocyte distribution width (RBC) [Ratio] 15.7 % High 11.5 - 14.5 % [place] Granulocytes/100 WBC (Bld) 73.2 % 40 - 80 % [place] Hematocrit (Bld) [Volume fraction] 37.0 % 35 - 47 % [place] Hemoglobin (Bld) [Mass/Vol] 12.3 g/dL 11.7 - 16 g/dL [place] Interpretation and review of laboratory results Abnormal [place] Lymphocytes (Bld) [#/Vol] 1.5 10*3/uL 1 - 4.3 10*3/uL [place] Lymphocytes/100 WBC (Bld) 18.0 % Low 20 - 40 % [place] MCH (RBC) [Entitic mass] 28.6 pg 26 - 34 pg [place] MCHC (RBC) [Mass/Vol] 33.3 % 32 - 36 % [place] MCV (RBC) [Entitic vol] 85.8 fL 79 - 98 fL [place], [place] Monocytes (Bld) [#/Vol] 0.6 10*3/uL 0 - 0.8 10*3/uL [place] Monocytes/100 WBC (Bld) 7.0 % 2 - 10 % [place] Platelet mean volume (Bld) [Entitic vol] 7.9 fL 7.4 - 10.4 fL [place] Platelets (Bld) [#/Vol] 382 10*3/uL 140 - 440 10*3/uL [place] RBC (Bld) [#/Vol] 4.32 10*6/uL 3.8 - 5.2 10*6/uL [place] WBC (Bld) [#/Vol] 8.4 10*3/uL 3.6 - 10.7 10*3/uL [place] Test Performed by [facility], [address] Lipaseon 12-08-2020 Lipase [Catalytic activity/Vol] 45 U/L 23 - 300 U/L [place] Otheron 12-08-2020 Test Performed by [facility], [address] Troponinon 12-08-2020 Troponin I.cardiac [Mass/Vol] ng/mL 0 - 0.034 ng/mL [place] Comment on above: . Test Performed by [facility], [address] US ABDOMEN LIMITED Specify o rgan? GALLBLADDERon 12-08-2020 [facility] Incoming Radiology Results From [facility] - 12/08/2020 4:26 PM EST Patient Name: WILL JACINTON: [id number] Ultrasound ACCESSION EXAM DATE/TIME PROCEDURE ORDERING PROVIDER [id number] 12/08/2020 16:22 EST US Abdomen Limited [id number] SHEIKH CPT code 96718 Reason For Exam (US Abdomen Limited) abd pain/vomiting Report Ultrasound right upper quadrant HISTORY: Abdominal pain Fatty infiltration of the liver. The gallbladder is normal. No gallstones. Common bile duct has a normal diameter 1.5 mm. Pancreas is normal. Right kidney measures 11.7 x 5.7 x 5.6 cm. The right kidney is normal. IMPRESSION: Fatty infiltration of the liver. Report Dictated on Workstation: [facility] --- Final --- Dictating Physician: MD BAUMANN MALAY Signed Date and Time: 12/08/2020 4:25 pm Signed by: MD BAUMANN MALAY Transcribed Date and Time: 12/08/2020 4:26 [place], [place] Patient Name: WILL ALVARADO Ultrasound ACCESSION EXAM DATE/TIME PROCEDURE ORDERING PROVIDER [id number] 12/08/2020 16:22 EST US Abdomen Limited [id number] SHEIKH CPT code 52261 Reason For Exam (US Abdomen Limited) abd pain/vomiting Report Ultrasound right upper quadrant HISTORY: Abdominal pain Fatty infiltration of the liver. The gallbladder is normal. No gallstones. Common bile duct has a normal diameter 1.5 mm. Pancreas is normal. Right kidney measures 11.7 x 5.7 x 5.6 cm. The right kidney is normal. IMPRESSION: Fatty infiltration of the liver. Report Dictated on Workstation: [email or web address] --- Final --- Dictating Physician: MD BAUMANN MALAY Signed Date and Time: 12/08/2020 4:25 pm Signed by: MD BAUMANN MALAY Transcribed Date and Time: 12/08/2020 4:26 [place], [place] Urinalysison 12-08-2020 Appearance (U) Turbid Abnormal Clear NA [place], [place] Comment on above: . Bacteria, UA Moderate Abnormal Negative /[HPF] [place] Comment on above: . Bilirubin Urine Negative Negative mg/dL [place] Comment on above: . Color (U) Yellow Lt. Yellow NA [place], [place] Comment on above: . Glucose, Ur 500 mg/dL Abnormal Normal (<70) [place] Comment on above: . Hyaline Casts, UA 3-5 Abnormal Negative /[LPF] [place] Comment on above: . Interpretation and review of laboratory results Abnormal [place] Ketones Ql (U) Negative Negative mg/dL [place] Comment on above: . LEUKOCYTES, UA 250 Abnormal Negative Kat/uL [place] Comment on above: . Mucous Threads Few Negative /[LPF] [place] Comment on above: . Nitrite, Urine Negative Negative NA [place] Comment on above: . Occult Blood,Urine 1.0 mg/dL Abnormal Negative [place] Comment on above: . pH (U) 7.0 [pH] [place] Comment on above: . Protein (U) [Mass/Vol] 50 mg/dL Abnormal Negative Me [place] Comment on above: . RBC (U) [#/Vol] /uL Abnormal 0 - 2 /[HPF] [place] Comment on above: . Specific [place], Urine 1.022 M [place] Comment on above: . Squam Epithel, UA 3-5 3 - 5 /[HPF] [place] Comment on above: . Urobilinogen, Urine 4 mg/dL Abnormal Normal (0-1) [place] Comment on above: . WBC, UA 51-100 Abnormal 0 - 5 /[HPF] [place] Comment on above: . Test Performed by [facility], [address] [place], [place] [address] Urine microscopic confirmed via light microscopy. [place] XR CHEST PORTABLEon 12-08-19 Patient Name: WILL ALVARADO Diagnostic Radiology ACCESSION EXAM DATE/TIME PROCEDURE ORDERING PROVIDER [id number] 12/08/2020 16:00 EST CR Chest Portable [id number] DURHAM CPT code 11918 Reason For Exam (CR Chest Portable) chest [...] RACHEL Transcribed Date and Time: 12/08/2020 4:22 [facility], Nati Virk Incoming Radiology Results From [facility] - 12/08/2020 4:22 PM EST Patient Name: WILL JACINTO Diagnostic Radiology ACCESSION EXAM DATE/TIME PROCEDURE ORDERING PROVIDER [id number] 12/08/2020 16:00 EST CR Chest Portable [id number] SHEIKH CPT code 23263 Reason For Exam (CR Chest Portable) chest [...] RACHEL Transcribed Date and Time: 12/08/2020 4:22 [facility], MARYAM CR Abdomen APon 11-28-2020 CR Abdomen AP Patient Name: WILL ALVARADO Diagnostic Radiology ACCESSION EXAM DATE/TIME PROCEDURE ORDERING PROVIDER [id number] 11/28/2020 09:00 EST CR Abdomen AP MD MARTIN KHALED CPT code 34751 Reason For Exam (CR Abdomen AP) ileus [...] Transcribed Date and Time: 11/28/2020 9:25 Normal [facility] Comp Metabolic Panelon 11-28 ALT [Catalytic activity/Vol] 30 U/L Normal 0-34 [facility] Comment on above: Result Comment: The ALT test is performed by an updated assay method. Please note that the reference intervals have been changed and are now sex specific. Performed By: #### C MP3 #### [facility] [address] [place], [place] Calcium [Mass/Vol] 8.7 mg/dL Normal 8.4-10.4 [facility] Comment on above: Performed By: #### C MP3 #### [facility] [address] [place], [place] Glucose [Mass/Vol] 100 mg/dL Normal 70-100 [facility] Comment on above: Performed By: #### C MP3 #### [facility] [address] [place], [place] ALP [Catalytic activity/Vol] 77 U/L Normal 38-126 [facility] Comment on above: Result Comment: Slig htly hemolysed, interpret with caution. Performed By: #### C MP3 #### [facility] [address] [place], [place] Anion gap [Moles/Vol] 5 Normal [facility] Comment on above: Performed By: #### C MP3 #### [facility] [address] [place], [place] AST [Catalytic activity/Vol] 26 U/L Normal 15-46 [facility] Comment on above: Result Comment: Slig htly hemolysed, interpret with caution. Performed By: #### C MP3 #### [facility] [address] [place], [place] Bilirubin [Mass/Vol] 0.6 mg/dL Normal 0.2-1.3 [facility] Comment on above: Performed By: #### C MP3 #### [facility] [address] [place], [place] CO2 [Moles/Vol] 25 mmol/L Normal 22-30 [facility] Comment on above: Performed By: #### C MP3 #### [facility] [address] [place], [place] Creatinine [Mass/Vol] 0.66 mg/dL Normal 0.52-1.25 [facility] Comment on above: Performed By: #### C MP3 #### [facility] [address] [place], [place] GFR/1.73 sq M predicted among blacks MDRD (S/P/Bld) [Vol rate/Area] mL/min/{1.73_m2} Normal >60 [facility] Comment on above: Performed By: #### C MP3 #### [facility] [address] [place], [place] GFR/1.73 sq M predicted among non-blacks MDRD (S/P/Bld) [Vol rate/Area] mL/min/{1.73_m2} Normal >60 [facility] Comment on above: Result Comment: KDIG O [...] secretion. Performed By: #### C MP3 #### [facility] [address] [place], [place] Protein [Mass/Vol] 6.0 g/dL Low 6.3-8.2 [facility] Comment on above: Performed By: #### C MP3 #### [facility] [address] [place], [place] Urea nitrogen [Mass/Vol] 10 mg/dL Normal 7-20 [facility] Comment on above: Performed By: #### C MP3 #### [place] [address] [place], [place] Potassium [Moles/Vol] 4.3 mmol/L Normal 3.5-5.1 [facility] Comment on above: Result Comment: Slig htly hemolysed, interpret with caution. Performed By: #### C MP3 #### [place] [address] [place], [place] Sodium [Moles/Vol] 134 mmol/L Low 135-145 [facility] Comment on above: Performed By: #### C MP3 #### [place] [address] [place], [place] Albumin [Mass/Vol] 3.3 g/dL Low 3.5-5.0 [facility] Comment on above: Performed By: #### C MP3 #### [place] [address] [place], [place] Chloride [Moles/Vol] 105 mmol/L Normal 98-107 [facility] Comment on above: Performed By: #### C MP3 #### [place] [address] [place], [place] Comprehensive Metabolic Pane gigi 11-28-2020 Albumin [Mass/Vol] 3.3 g/dL Low 3.5 - 5 g/dL [place], [place] ALP [Catalytic activity/Vol] 77 U/L 38 - 126 U/L [place] Comment on above: Slightly hemolysed, interpret with caution. ALT [Catalytic activity/Vol] 30 U/L 0 - 34 U/L [place], [place] Comment on above: The ALT test is perf ormed by an updated assay method. Please note that the reference intervals have been changed and are now sex specific. Anion gap [Moles/Vol] 5 mmol/L [place], [place] AST [Catalytic activity/Vol] 26 U/L 15 - 46 U/L [place] Comment on above: Slightly hemolysed, interpret with caution. Bilirubin Ql (U) 0.6 mg/dL 0.2 - 1.3 mg/dL [place] Calcium [Mass/Vol] 8.7 mg/dL 8.4 - 10. 4 mg/dL [place] Chloride [Moles/Vol] 105 mmol/L 98 - 10 7 mmol/L [place] CO2 [Moles/Vol] 25 mmol/L 22 - 30 mmol/L [place] Creatinine [Mass/Vol] 0.66 mg/dL 0.52 - 1.25 mg/dL [place] EGFR IF NonAfrican Vincentian >90.0 >60 mL/min [place] Comment on above: KDIGO guidelines pro [...] MDRD (S/P/Bld) [Vol rate/Area] mL/min/{1.73_m2} >60 mL/min [place], [place] Glucose [Mass/Vol] 100 mg/dL 70 - 100 mg/dL [place] Interpretation and review of laboratory results Abnormal [place] Potassium [Moles/Vol] 4.3 mmol/L 3.5 - 5.1 mmol/L [place] Comment on above: Slightly hemolysed, interpret with caution. Protein [Mass/Vol] 6.0 g/dL Low 6.3 - 8.2 g/dL [place], [place] Sodium [Moles/Vol] 134 mmol/L Low 135 - 145 mmol/L [place], [place] Urea nitrogen [Mass/Vol] 10 mg/dL 7 - 20 mg/dL [place] Test Performed by [facility], [address] [place] [address] [place], [place] Glucose,Bedsideon 11-28-2020 Glucose [Mass/Vol] 111 mg/dL High 70-100 [facility] Comment on above: Result Comment: Test performed by glucose meter. Results may be 10%-15% lower than serum/plasma values. (CLIA ID [id number]) Performed By: #### B GLU #### [place] [address] [place] [address] Glucose [Mass/Vol] 166 mg/dL High 70-100 [facility] Comment on above: Result Comment: Test performed by glucose meter. Results may be 10%-15% lower than serum/plasma values. (CLIA ID [id number]) Performed By: #### B GLU #### [place] [address] [place] [address] Glucose [Mass/Vol] 215 mg/dL High 70-100 [facility] Comment on above: Result Comment: Test performed by glucose meter. Results may be 10%-15% lower than serum/plasma values. (CLIA ID [id number]) Performed By: #### B GLU #### [place] [address] [place] [address] POCT Glucoseon 11-28-2020 Glucose [Mass/Vol] 111 mg/dL High 70 - 100 mg/dL [place], [place] Comment on above: Test performed by gl ucose meter. Results may be 10%-15% lower than serum/plasma values. (CLIA ID [id number]) Interpretation and review of laboratory results Abnormal [facility] rocket staff- [place], MARYAM Test Performed by [facility], [address] [place] [address] [facility] [place] Glucose [Mass/Vol] 166 mg/dL High 70 - 100 mg/dL [place] Comment on above: Test performed by gl ucose meter. Results may be 10%-15% lower than serum/plasma values. (CLIA ID [id number]) Interpretation and review of laboratory results Abnormal [facility] [employer] [place], [place] Test Performed by [facility], [address] [place] [id number] [place] [address] Glucose [Mass/Vol] 215 mg/dL High 70 - 100 mg/dL [place] Comment on above: Test performed by gl ucose meter. Results may be 10%-15% lower than serum/plasma values. (CLIA ID [id number]) Interpretation and review of laboratory results Abnormal [facility] [employer] [place], MARYAM Test Performed by [facility], [address] [place] [address] [place] Surgical Pathologyon 021 Sodium [Moles/Vol] SEE BELOW [facility] [place], [place] 1 [id number] [facility] DEPARTMENT OF [facility] PATHOLOGY AND LABORATORY MEDICINE [address] [place] [address] FINAL SURGICAL PATHOLOGY REPORT NAME: WILL JACINTO : 1965 55 Y F BILLING NO.: [id number] LOCATION: [address] [place] [address] PROCEDURE 11/26/2020 DATE: SURGEON: VIRGIL MARSHALL M.D. [...] residual atypical hyperplasia. Follow-up and rebiopsy recommended. IN/IN Signature> ALLEN JERRY M.D. CLINICAL INFORMATION: Not [...] characteristics determined by the clinical laboratories of [facility] rocket staff [facility]. They have not been cleared by the [...] negativity on decalcified specimens. Professional Performing Location: [address] [address]. DEPARTMENT OF PATHOLOGY AND LABORATORY MEDICINE [place], [place] [address] [place] XR ABDOMEN (KUB) (SINGLE AP VIEW)on 11-28-2020 [facility] Incoming Radiology Results From [facility] - 11/28/2020 9:26 AM EST Patient Name: WILL AJCINTO Diagnostic Radiology ACCESSION EXAM DATE/TIME PROCEDURE ORDERING PROVIDER [id number] 11/28/2020 09:00 EST CR Abdomen AP MD MARTIN KHALED CPT code 16467 Reason For Exam (CR Abdomen AP) ileus [...] RISA Transcribed Date and Time: 11/28/2020 9:25 [place] Patient Name: WILL ALVARADO Diagnostic Radiology ACCESSION EXAM DATE/TIME PROCEDURE ORDERING PROVIDER [id number] 11/28/2020 09:00 EST CR Abdomen AP MD MARTIN KHALED CPT code 32755 Reason For Exam (CR Abdomen AP) ileus [...] RISA Transcribed Date and Time: 11/28/2020 9:25 [facility], [place] CR Abdomen APon 11-27-2020 CR Abdomen AP Patient Name: WILL ALVARADO Diagnostic Radiology ACCESSION EXAM DATE/TIME PROCEDURE ORDERING PROVIDER [id number] 11/27/2020 08:28 EST CR Abdomen AP MD JD, [facility] CPT code 15517 Reason For Exam (CR Abdomen AP) ileus [...] Transcribed Date and Time: 11/27/2020 8:38 Normal [facility] Comp Metabolic Panelon 11-27 ALP [Catalytic activity/Vol] 97 U/L Normal 38-126 [facility] Comment on above: Performed By: #### C MP3 #### [address] [address] ALT [Catalytic activity/Vol] 34 U/L Normal 0-34 [facility] Comment on above: Result Comment: The ALT test is performed by an updated assay method. Please note that the reference intervals have been changed and are now sex specific. Performed By: #### C MP3 #### [facility] [address], [place] Anion gap [Moles/Vol] 6 Normal [facility] Comment on above: Performed By: #### C MP3 #### [facility] [address], [place] AST [Catalytic activity/Vol] 26 U/L Normal 15-46 [facility] Comment on above: Performed By: #### C MP3 #### [facility] [address] [place], [place] Bilirubin [Mass/Vol] 0.6 mg/dL Normal 0.2-1.3 [facility] Comment on above: Performed By: #### C MP3 #### [facility] [address] [place], [place] Calcium [Mass/Vol] 8.2 mg/dL Low 8.4-10.4 [facility] Comment on above: Performed By: #### C MP3 #### [facility] [address] [facility], [place] CO2 [Moles/Vol] 21 mmol/L Low 22-30 [facility] Comment on above: Performed By: #### C MP3 #### [facility] [facility] [address], [place] Glucose [Mass/Vol] 225 mg/dL High 70-100 [facility] Comment on above: Performed By: #### C MP3 #### [facility] [address] [place], [place] Protein [Mass/Vol] 6.1 g/dL Low 6.3-8.2 [facility] Comment on above: Performed By: #### C MP3 #### [facility] [address], [place] Urea nitrogen [Mass/Vol] 13 mg/dL Normal 7-20 [facility] Comment on above: Performed By: #### C MP3 #### [facility] [address], [place] Creatinine [Mass/Vol] 0.57 mg/dL Normal 0.52-1.25 [facility] Comment on above: Performed By: #### C MP3 #### [facility] [address] [place] [address] GFR/1.73 sq M predicted among blacks MDRD (S/P/Bld) [Vol rate/Area] mL/min/{1.73_m2} Normal >60 [facility] Comment on above: Performed By: #### C MP3 #### [facility] [address] [place] [address] GFR/1.73 sq M predicted among non-blacks MDRD (S/P/Bld) [Vol rate/Area] mL/min/{1.73_m2} Normal >60 [facility] Comment on above: Result Comment: KDIG O [...] secretion. Performed By: #### C MP3 #### [facility] [address], [place] Albumin [Mass/Vol] 3.3 g/dL Low 3.5-5.0 [facility] Comment on above: Performed By: #### C MP3 #### [facility] [address], [place] Chloride [Moles/Vol] 104 mmol/L Normal 98-107 [facility] Comment on above: Performed By: #### C MP3 #### [facility] [address], [place] Potassium [Moles/Vol] 4.2 mmol/L Normal 3.5-5.1 [facility] Comment on above: Performed By: #### C MP3 #### [facility] [address], [place] Sodium [Moles/Vol] 132 mmol/L Low 135-145 [facility] Comment on above: Performed By: #### C MP3 #### [facility] [address], [place] Comprehensive Metabolic Pane gigi 11-27-2020 Albumin [Mass/Vol] 3.3 g/dL Low 3.5 - 5 g/dL [place], [place] ALP [Catalytic activity/Vol] 97 U/L 38 - 126 U/L [place] ALT [Catalytic activity/Vol] 34 U/L 0 - 34 U/L [place] Comment on above: The ALT test is perf ormed by an updated assay method. Please note that the reference intervals have been changed and are now sex specific. Anion gap [Moles/Vol] 6 mmol/L [place], [place] AST [Catalytic activity/Vol] 26 U/L 15 - 46 U/L [place], [place] Bilirubin Ql (U) 0.6 mg/dL 0.2 - 1.3 mg/dL [place] Calcium [Mass/Vol] 8.2 mg/dL Low 8.4 - 10. 4 mg/dL [place] Chloride [Moles/Vol] 104 mmol/L 98 - 10 7 mmol/L [place], [place] CO2 [Moles/Vol] 21 mmol/L Low 22 - 30 mmol/L [place] Creatinine [Mass/Vol] 0.57 mg/dL 0.52 - 1.25 mg/dL [place], [place] EGFR IF NonAfrican Vincentian >90.0 >60 mL/min [place] Comment on above: KDIGO guidelines pro [...] MDRD (S/P/Bld) [Vol rate/Area] mL/min/{1.73_m2} >60 mL/min [place] Glucose [Mass/Vol] 225 mg/dL High 70 - 100 mg/dL [place] Interpretation and review of laboratory results Abnormal [place], [place] Potassium [Moles/Vol] 4.2 mmol/L 3.5 - 5.1 mmol/L [place] Protein [Mass/Vol] 6.1 g/dL Low 6.3 - 8.2 g/dL [place] Sodium [Moles/Vol] 132 mmol/L Low 135 - 145 mmol/L [place], [place] Urea nitrogen [Mass/Vol] 13 mg/dL 7 - 20 mg/dL [place], [place] Test Performed by [facility], [address] [place] [address] [place], [place] EKG 12 Leadon 11-27-2020 [facility] [place], [facility] Incoming Cardiology Results From [facility] - 11/27/2020 10:03 AM EST [facility] Test Date: 2020-11-26 Pat Name: Will Jacinto Department: 1A7E Room: 1714 Gender: F Charge Account Clerk: SARAN : 1965 Requested By: GABO ESTRADA Order Number: [id number] Reading MD: Jelena Davidson Measurements Intervals [place] Rate: 85 P: 38 IN: 159 QRS: -39 QRSD: 105 T: 29 QT: 382 QTc: 455 Interpretive Statements Sinus rhythm Left ventricular hypertrophy Anterior Q waves, possibly due to LVH Electronically Signed On 11-27-2020 10:02:38 EST by Jelena Davidson [employer] [facility]ARYAM [facility] Test Date: 2020-11-26 Pat Name: Will Jacinto Department: 1A7E Room: [facility] Gender: F Charge Account Clerk: SARAN : 1965 Requested By: GABO ESTRADA Order Number: [id number] Reading MD: Jelena Davidson Measurements Intervals [place] Rate: 85 P: 38 IN: 159 QRS: -39 QRSD: 105 T: 29 QT: 382 QTc: 455 Interpretive Statements Sinus rhythm Left ventricular hypertrophy Anterior Q waves, possibly due to LVH Electronically Signed On 11-27-2020 10:02:38 EST by Jelena Davidson [facility] MARYAM Glucose, Bedsideon Confirmation see below Normal [facility] Comment on above: Result Comment: No c onfirmation received. Performed By: #### B GLU #### [employer] rocket staff System [address] [place] [address] Glucose [Mass/Vol] mg/dL High 70-100 [facility] Comment on above: Result Comment: Test performed by glucose meter. Results may be 10%-15% lower than serum/plasma values. (CLIA ID [id number]) Performed By: #### B GLU #### [employer] [facility] [address] [place] [address] Glucose,Bedsideon 11-27-2020 Glucose [Mass/Vol] 91 mg/dL Normal 70-100 [facility] Comment on above: Result Comment: Test performed by glucose meter. Results may be 10%-15% lower than serum/plasma values. (CLIA ID [id number]) Performed By: #### B GLU #### [employer] [facility] [address] [place] [address] Glucose [Mass/Vol] 134 mg/dL High 70-100 [facility] Comment on above: Result Comment: Test performed by glucose meter. Results may be 10%-15% lower than serum/plasma values. (CLIA ID [id number]) Performed By: #### B GLU #### [facility] [address] [place] [address] Glucose [Mass/Vol] 205 mg/dL High 70-100 [facility] Comment on above: Result Comment: Test performed by glucose meter. Results may be 10%-15% lower than serum/plasma values. (CLIA ID [id number]) Performed By: #### B GLU #### [facility] [address] [place] [address] Glucose [Mass/Vol] 223 mg/dL High 70-100 [facility] Comment on above: Result Comment: Test performed by glucose meter. Results may be 10%-15% lower than serum/plasma values. (CLIA ID [id number]) Performed By: #### B GLU #### [facility] [address] [place] [address] POC Glucose, Whole Bloodon 0 11-27-2020 Glucose [Mass/Vol] mg/dL High 70 - 100 mg/dL [place], [place] Comment on above: Test performed by gl ucose meter. Results may be 10%-15% lower than serum/plasma values. (CLIA ID [id number]) Interpretation and review of laboratory results Abnormal [place], [place] Sodium [Moles/Vol] see below [place] Comment on above: No confirmation rece ived. Test Performed by [facility], [facility] [place] [address] [place], [place] POCT Glucoseon 11-27-2020 Glucose [Mass/Vol] 91 mg/dL 70 - 100 mg/dL [place], [place] Comment on above: Test performed by gl ucose meter. Results may be 10%-15% lower than serum/plasma values. (CLIA ID [id number]) Test Performed by [facility], [facility] [place] [address] [place], [place] Glucose [Mass/Vol] 134 mg/dL High 70 - 100 mg/dL [place], [place] Comment on above: Test performed by gl ucose meter. Results may be 10%-15% lower than serum/plasma values. (CLIA ID [id number]) Interpretation and review of laboratory results Abnormal [facility] [place] Test Performed by [facility], [address] [place] [place] [address] [facility] [place] Glucose [Mass/Vol] 205 mg/dL High 70 - 100 mg/dL [facility] [place] Comment on above: Test performed by gl ucose meter. Results may be 10%-15% lower than serum/plasma values. (CLIA ID [id number]) Interpretation and review of laboratory results Abnormal [facility] [place] Test Performed by [facility], [address] [place] [address] [facility] Glucose [Mass/Vol] 223 mg/dL High 70 - 100 mg/dL [facility] [place] Comment on above: Test performed by gl ucose meter. Results may be 10%-15% lower than serum/plasma values. (CLIA ID [id number]) Interpretation and review of laboratory results Abnormal [facility] [place] Test Performed by [facility], [address] [place] [address] [facility] [place] XR ABDOMEN (KUB) (SINGLE AP VIEW)on 11-27-2020 Patient Name: WILL JACINTO Diagnostic Radiology ACCESSION EXAM DATE/TIME PROCEDURE ORDERING PROVIDER [id number] 11/27/2020 08:28 EST CR Abdomen AP MD MARTIN KHALED CPT code 27595 Reason For Exam (CR Abdomen AP) ileus [...] JASON Transcribed Date and Time: 11/27/2020 8:38 [place], [place] Nati Jones Incoming Radiology Results From [facility] - 11/27/2020 8:41 AM EST Patient Name: WILL JACINTO Diagnostic Radiology ACCESSION EXAM DATE/TIME PROCEDURE ORDERING PROVIDER [id number] 11/27/2020 08:28 EST CR Abdomen AP MD JD, TESHA CPT code 16501 Reason For Exam (CR Abdomen AP) ileus [...] JASON Transcribed Date and Time: 11/27/2020 8:38 [place], [place] Comp Metabolic Panelon 11-26 ALP [Catalytic activity/Vol] 88 U/L Normal 38-126 [facility] Comment on above: Performed By: #### B GLU #### [facility] rocket staff [facility] [address] [place] [address] ALT [Catalytic activity/Vol] 33 U/L Normal 0-34 [facility] Comment on above: Result Comment: The ALT test is performed by an updated assay method. Please note that the reference intervals have been changed and are now sex specific. Performed By: #### B GLU #### [facility] rocket staff [facility] [address] [place] [address] Calcium [Mass/Vol] 8.9 mg/dL Normal 8.4-10.4 [facility] Comment on above: Performed By: #### B GLU #### [facility] [address], [place] Glucose [Mass/Vol] 188 mg/dL High 70-100 [facility] Comment on above: Performed By: #### B GLU #### [facility] [address], [place] Urea nitrogen [Mass/Vol] 10 mg/dL Normal 7-20 [facility] Comment on above: Performed By: #### B GLU #### [facility] [address], [place] Anion gap [Moles/Vol] 7 Normal [facility] Comment on above: Performed By: #### B GLU #### [facility] [address], [place] AST [Catalytic activity/Vol] 29 U/L Normal 15-46 [facility] Comment on above: Performed By: #### B GLU #### [place] [address], [place] Bilirubin [Mass/Vol] 0.5 mg/dL Normal 0.2-1.3 [facility] Comment on above: Performed By: #### B GLU #### [facility] [address], [place] CO2 [Moles/Vol] 25 mmol/L Normal 22-30 [facility] Comment on above: Performed By: #### B GLU #### [facility] [address], [place] Creatinine [Mass/Vol] 0.63 mg/dL Normal 0.52-1.25 [facility] Comment on above: Performed By: #### B GLU #### [facility] [address], [place] GFR/1.73 sq M predicted among blacks MDRD (S/P/Bld) [Vol rate/Area] mL/min/{1.73_m2} Normal >60 [facility] Comment on above: Performed By: #### B GLU #### [facility] [address], [place] GFR/1.73 sq M predicted among non-blacks MDRD (S/P/Bld) [Vol rate/Area] mL/min/{1.73_m2} Normal >60 [facility] Comment on above: Result Comment: KDIG O [...] secretion. Performed By: #### B GLU #### [facility] [address], [place] Protein [Mass/Vol] 6.2 g/dL Low 6.3-8.2 [facility] Comment on above: Performed By: #### B GLU #### [place] [address], [place] Albumin [Mass/Vol] 3.4 g/dL Low 3.5-5.0 [facility] Comment on above: Performed By: #### B GLU #### [place] [address], [place] Chloride [Moles/Vol] 98 mmol/L Normal 98-107 [facility] Comment on above: Performed By: #### B GLU #### [place] [address] [place], [place] Potassium [Moles/Vol] 3.9 mmol/L Normal 3.5-5.1 [facility] Comment on above: Performed By: #### B GLU #### [place] [address], [place] Sodium [Moles/Vol] 130 mmol/L Low 135-145 [facility] Comment on above: Performed By: #### B GLU #### [facility] [address] [facility] [place] [place] [address] Comprehensive Metabolic Pane gigi 11-26-2020 Albumin [Mass/Vol] 3.4 g/dL Low 3.5 - 5 g/dL [place] ALP [Catalytic activity/Vol] 88 U/L 38 - 126 U/L [place] ALT [Catalytic activity/Vol] 33 U/L 0 - 34 U/L [place] Comment on above: The ALT test is perf ormed by an updated assay method. Please note that the reference intervals have been changed and are now sex specific. Anion gap [Moles/Vol] 7 mmol/L [place], [place] AST [Catalytic activity/Vol] 29 U/L 15 - 46 U/L [place], [place] Bilirubin Ql (U) 0.5 mg/dL 0.2 - 1.3 mg/dL [place], [place] Calcium [Mass/Vol] 8.9 mg/dL 8.4 - 10. 4 mg/dL [place], [place] Chloride [Moles/Vol] 98 mmol/L 98 - 10 7 mmol/L [place] CO2 [Moles/Vol] 25 mmol/L 22 - 30 mmol/L [place] Creatinine [Mass/Vol] 0.63 mg/dL 0.52 - 1.25 mg/dL [place], [place] EGFR IF NonAfrican Vincentian >90.0 >60 mL/min [place], [place] Comment on above: KDIGO guidelines pro [...] MDRD (S/P/Bld) [Vol rate/Area] mL/min/{1.73_m2} >60 mL/min [place], [place] Glucose [Mass/Vol] 188 mg/dL High 70 - 100 mg/dL [place] Interpretation and review of laboratory results Abnormal [place], [place] Potassium [Moles/Vol] 3.9 mmol/L 3.5 - 5.1 mmol/L [place] Protein [Mass/Vol] 6.2 g/dL Low 6.3 - 8.2 g/dL [place], [place] Sodium [Moles/Vol] 130 mmol/L Low 135 - 145 mmol/L [place], [place] Urea nitrogen [Mass/Vol] 10 mg/dL 7 - 20 mg/dL [place] Test Performed by [facility], [address] [place] [id number] [place] [address] Glucose,Bedsideon 11-26-2020 Glucose [Mass/Vol] 254 mg/dL High 70-100 [facility] Comment on above: Result Comment: Test performed by glucose meter. Results may be 10%-15% lower than serum/plasma values. (CLIA ID [id number]) Performed By: #### B GLU #### [address] [address] Glucose [Mass/Vol] 383 mg/dL High 70-100 [facility] Comment on above: Result Comment: Test performed by glucose meter. Results may be 10%-15% lower than serum/plasma values. (CLIA ID [id number]) Performed By: #### B GLU #### [address] [address] Glucose [Mass/Vol] 206 mg/dL High 70-100 [facility] Comment on above: Result Comment: Test performed by glucose meter. Results may be 10%-15% lower than serum/plasma values. (CLIA ID [id number]) Performed By: #### B GLU #### [facility] [address] [place] [address] Glucose [Mass/Vol] 169 mg/dL High 70-100 [facility] Comment on above: Result Comment: Test performed by glucose meter. Results may be 10%-15% lower than serum/plasma values. (CLIA ID [id number]) Performed By: #### B GLU #### [facility] [address] [place] [address] Glucose [Mass/Vol] 168 mg/dL High 70-100 [facility] Comment on above: Result Comment: Test performed by glucose meter. Results may be 10%-15% lower than serum/plasma values. (CLIA ID [id number]) Performed By: #### B GLU #### [facility] [address] 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 Two [id number] stitches were used to obtain hemostasis with [...] devices during the surgery. [employer] Job ID: [id number] Virgil Marshall MD DOD:11/26/2020 10:39 A RLK/dsk DOT:11/26/2020 11: (more content not included)... Normal [facility] Otheron 11-26-2020 Test Performed by [facility], [address] [place] [address] [place], [place] POCT Glucoseon 11-26-2020 Glucose [Mass/Vol] 254 mg/dL High 70 - 100 mg/dL [place] Comment on above: Test performed by gl ucose meter. Results may be 10%-15% lower than serum/plasma values. (CLIA ID [id number]) Interpretation and review of laboratory results Abnormal [place], [place] Glucose [Mass/Vol] 383 mg/dL High 70 - 100 mg/dL [place], [place] Comment on above: Test performed by gl ucose meter. Results may be 10%-15% lower than serum/plasma values. (CLIA ID [id number]) Interpretation and review of laboratory results Abnormal [place], [place] Test Performed by [facility], [facility] [place] [address] [place], [place] Glucose [Mass/Vol] 206 mg/dL High 70 - 100 mg/dL [place], [place] Comment on above: Test performed by gl ucose meter. Results may be 10%-15% lower than serum/plasma values. (CLIA ID [id number]) Interpretation and review of laboratory results Abnormal [facility] [employer] [facility], [employer] Test Performed by [facility], [address] [place] [address] [facility] rocket staff [employer], MARYAM Glucose [Mass/Vol] 169 mg/dL High 70 - 100 mg/dL [facility], MARYAM Comment on above: Test performed by gl ucose meter. Results may be 10%-15% lower than serum/plasma values. (CLIA ID [id number]) Interpretation and review of laboratory results Abnormal [facility] Test Performed by [facility], [address] [place] [address] [facility] [employer] [place] Surgical Pathologyon [address] [facility] PATHOLOGY AND LABORATORY MEDICINE [address] [place] [address] FINAL SURGICAL PATHOLOGY REPORT NAME: WILL JACINTO : 1965 55 Y F BILLING NO.: [id number] LOCATION: [address] [place] [address] PROCEDURE 11/26/2020 DATE: SURGEON: VIRGIL MARSHALL M.D. [...] residual atypical hyperplasia. Follow-up and rebiopsy recommended. IN/IN Signature> ALLEN JERRY M.D. CLINICAL INFORMATION: Not [...] characteristics determined by the clinical laboratories of [facility]. They have not been cleared by the [...] negativity on decalcified specimens. Professional Performing Location: [address] [address]. DEPARTMENT OF PATHOLOGY AND LABORATORY MEDICINE [place], [place] [address] Normal [facility] TSH without Reflexon 01-19-2 021 TSH Qn 2.356 u[IU]/mL 0.465 - 4.68 u[IU]/mL [place], [place] Test Performed by [facility], [address] [place], [place] [address] [place] [address] Thyroid Stim. Hormoneon 11-08 Thyroid Stim. Hormone 2.356 u[IU]/mL Normal 0.465-4.68 0 [facility] Comment on above: Performed By: #### B GLU #### [facility] [address] [place] [address] Troponin Ion 11-26-2020 Troponin I.cardiac [Mass/Vol] ng/mL Normal 0.000-0.034 [place], [place] Comment on above: . Result Comment: . Performed By: #### T ROPN #### [place] [address] [place] [address] CBC Auto Differentialon 11-08 Absolute Baso # 0.1 10*3/uL 0 - 0.2 10*3/uL [place] Absolute Neut # 4.9 10*3/uL 1.8 - 7 10*3/uL [place] Basophils/100 WBC (Bld) 0.9 % 0 - 2 % M [place] Eosinophils (Bld) [#/Vol] 0.1 10*3/uL 0 - 0.5 10*3/uL [place] Eosinophils/100 WBC (Bld) 1.8 % 1 - 6 % [place] Erythrocyte distribution width (RBC) [Ratio] 16.1 % High 11.5 - 14.5 % [place] Granulocytes/100 WBC (Bld) 64.4 % 40 - 80 % [place] Hematocrit (Bld) [Volume fraction] 29.4 % Low 35 - 47 % [place] Hemoglobin (Bld) [Mass/Vol] 10.0 g/dL Low 11.7 - 16 g/dL [place] Interpretation and review of laboratory results Abnormal [place] Lymphocytes (Bld) [#/Vol] 2.0 10*3/uL 1 - 4.3 10*3/uL [place] Lymphocytes/100 WBC (Bld) 25.7 % 20 - 40 % [place] MCH (RBC) [Entitic mass] 29.8 pg 26 - 34 pg [place] MCHC (RBC) [Mass/Vol] 33.9 % 32 - 36 % [place] MCV (RBC) [Entitic vol] 87.7 fL 79 - 98 fL [place], [place] Monocytes (Bld) [#/Vol] 0.5 10*3/uL 0 - 0.8 10*3/uL [place], [place] Monocytes/100 WBC (Bld) 7.2 % 2 - 10 % [place] Platelet mean volume (Bld) [Entitic vol] 7.6 fL 7.4 - 10.4 fL [place], [place] Platelets (Bld) [#/Vol] 352 10*3/uL 140 - 440 10*3/uL [place] RBC (Bld) [#/Vol] 3.35 10*6/uL Low 3.8 - 5.2 10*6/uL [place] WBC (Bld) [#/Vol] 7.6 10*3/uL 3.6 - 10.7 10*3/uL [place] Test Performed by [facility], [address], [place], [place] [address] [place] Comprehensive Metabolic Pane gigi 11-25-2020 Albumin [Mass/Vol] 3.1 g/dL Low 3.5 - 5 g/dL [place] ALP [Catalytic activity/Vol] 83 U/L 38 - 126 U/L [place] ALT [Catalytic activity/Vol] 31 U/L 0 - 34 U/L [place] Comment on above: The ALT test is perf ormed by an updated assay method. Please note that the reference intervals have been changed and are now sex specific. Anion gap [Moles/Vol] 5 mmol/L [place], [place] AST [Catalytic activity/Vol] 26 U/L 15 - 46 U/L [place] Bilirubin Ql (U) 0.4 mg/dL 0.2 - 1.3 mg/dL [place] Calcium [Mass/Vol] 8.4 mg/dL 8.4 - 10. 4 mg/dL [place] Chloride [Moles/Vol] 103 mmol/L 98 - 10 7 mmol/L [place] CO2 [Moles/Vol] 28 mmol/L 22 - 30 mmol/L [place] Creatinine [Mass/Vol] 0.76 mg/dL 0.52 - 1.25 mg/dL [place] EGFR IF NonAfrican Vincentian 88.9 mL/min >60 [place] Comment on above: KDIGO guidelines pro [...] MDRD (S/P/Bld) [Vol rate/Area] mL/min/{1.73_m2} >60 mL/min [place] Glucose [Mass/Vol] 107 mg/dL High 70 - 100 mg/dL [place] Interpretation and review of laboratory results Abnormal [place], [place] Potassium [Moles/Vol] 3.8 mmol/L 3.5 - 5.1 mmol/L [place] Protein [Mass/Vol] 5.8 g/dL Low 6.3 - 8.2 g/dL [place] Sodium [Moles/Vol] 136 mmol/L 135 - 145 mmol/L [place] Urea nitrogen [Mass/Vol] 11 mg/dL 7 - 20 mg/dL [place] Test Performed by [facility], [address], [place], [place] [address] [place], [place] EKG 12 Leadon 11-25-2020 [facility] [place], [facility] Incoming Cardiology Results From [facility] - 11/25/2020 8:18 AM EST [facility] Test Date: 2020-11-24 Pat Name: Will Jacinto Department: 2A Room: 158 Gender: F Charge Account Clerk: : 1965 Requested By: KYLAH DAVID Order Number: [id number] Reading MD: Justin Ramirez Measurements Intervals [place] Rate: 75 P: 45 IN: 160 QRS: -36 QRSD: 108 T: 18 QT: 392 QTc: 438 Interpretive Statements SINUS RHYTHM LATE PRECORDIAL R/S TRANSITION LEFT VENTRICULAR HYPERTROPHY LEFT ANTERIOR FASCICULAR BLOCK Compared to ECG 11/22/2020 18:01:34 Sinus tachycardia no longer present Electronically Signed On 11-25-2020 8:16:57 EST by Justin Ramirez [facility] Test Date: 2020-11-24 Pat Name: Will IssaNarendralidia Department: 2A Room: 158 Gender: F Charge Account Clerk: : 1965 Requested By: KYLAH DAVID Order Number: [id number] Reading MD: Justin Ramirez Measurements Intervals [place] Rate: 75 P: 45 IN: 160 QRS: -36 QRSD: 108 T: 18 QT: 392 QTc: 438 Interpretive Statements SINUS RHYTHM LATE PRECORDIAL R/S TRANSITION LEFT VENTRICULAR HYPERTROPHY LEFT ANTERIOR FASCICULAR BLOCK Compared to ECG 11/22/2020 18:01:34 Sinus tachycardia no longer present Electronically Signed On 11-25-2020 8:16:57 EST by Justin Ramirez [place], [place] POC Glucose, Whole Bloodon 0 11-25-2020 Glucose [Mass/Vol] mg/dL High 70 - 100 mg/dL [place] Comment on above: Test performed by gl ucose meter. Results may be 10%-15% lower than serum/plasma values. (CLIA ID [id number]) Interpretation and review of laboratory results Abnormal [facility] [place] Sodium [Moles/Vol] see below [facility] [place] Comment on above: No confirmation rece ived. Test Performed by [facility], [address], [place], [place] [address] [facility] [place] POCT Glucoseon 11-25-2020 Glucose [Mass/Vol] 168 mg/dL High 70 - 100 mg/dL [facility] [place] Comment on above: Test performed by gl ucose meter. Results may be 10%-15% lower than serum/plasma values. (CLIA ID [id number]) Interpretation and review of laboratory results Abnormal [facility] [place] Test Performed by [facility], [address] [place] [address] [facility] [place] Glucose [Mass/Vol] 248 mg/dL High 70 - 100 mg/dL [facility] Comment on above: Test performed by gl ucose meter. Results may be 10%-15% lower than serum/plasma values. (CLIA ID [id number]) Interpretation and review of laboratory results Abnormal [facility] Test Performed by [facility], [address], [place], [place] [address] [facility] [place] Glucose [Mass/Vol] 202 mg/dL High 70 - 100 mg/dL [facility] Comment on above: Test performed by gl ucose meter. Results may be 10%-15% lower than serum/plasma values. (CLIA ID [id number]) Interpretation and review of laboratory results Abnormal [facility] Test Performed by [facility], [address], [place], [place] [address] [facility] [place] Glucose [Mass/Vol] 121 mg/dL High 70 - 100 mg/dL [facility] [place] Comment on above: Test performed by gl ucose meter. Results may be 10%-15% lower than serum/plasma values. (CLIA ID [id number]) Interpretation and review of laboratory results Abnormal [facility] Test Performed by [facility], [address], [place], [place] [address] [place] Troponinon 11-25-2020 Troponin I.cardiac [Mass/Vol] ng/mL 0 - 0.034 ng/mL [place], [place] Comment on above: . Test Performed by [facility], [address], [place], [place] [address] [place] US NON OB TRANSVAGINALon Robert, [facility] Incoming Radiology Results From [facility] - 11/25/2020 10:46 AM EST Patient Name: WILL JACINTO Ultrasound ACCESSION EXAM DATE/TIME PROCEDURE ORDERING PROVIDER [id number] 11/25/2020 10:38 EST US Transvaginal MD CRAMER DIANA CHRISTINE CPT code 89346 Reason For Exam (US Transvaginal) AUB Report [...] NICHOLAS Transcribed Date and Time: 11/25/2020 10:46 [place] Patient Name: WILL ALVARADO Ultrasound ACCESSION EXAM DATE/TIME PROCEDURE ORDERING PROVIDER [id number] 11/25/2020 10:38 EST US Transvaginal MD CRAMER DIANA CHRISTINE CPT code 37346 Reason For Exam (US Transvaginal) AUB Report [...] NICHOLAS Transcribed Date and Time: 11/25/2020 10:46 [place] XR ABDOMEN (KUB) (SINGLE AP VIEW)on 11-25-2020 [facility] Incoming Radiology Results From [facility] - 11/25/2020 3:31 PM EST Patient Name: WILL JACINTO Diagnostic Radiology ACCESSION EXAM DATE/TIME PROCEDURE ORDERING PROVIDER [id number] 11/25/2020 15:08 EST CR Abdomen AP Lorenzo STAPLETON MICHAEL CPT code 50366 Reason For Exam (CR Abdomen AP) abd [...] NICHOLAS Transcribed Date and Time: 11/25/2020 3:31 [place] Patient Name: WILL JACINTO Diagnostic Radiology ACCESSION EXAM DATE/TIME PROCEDURE ORDERING PROVIDER [id number] 11/25/2020 15:08 EST CR Abdomen AP Lorenzo STAPLETON MICHAEL CPT code 42082 Reason For Exam (CR Abdomen AP) abd [...] NICHOLAS Transcribed Date and Time: 11/25/2020 3:31 [place], [place] CBC Auto Differentialon 11-08 Absolute Baso # 0.0 10*3/uL 0 - 0.2 10*3/uL [place] Absolute Neut # 5.4 10*3/uL 1.8 - 7 10*3/uL [place] Basophils/100 WBC (Bld) 0.7 % 0 - 2 % M [place] Eosinophils (Bld) [#/Vol] 0.1 10*3/uL 0 - 0.5 10*3/uL [place] Eosinophils/100 WBC (Bld) 0.9 % Low 1 - 6 % [place] Erythrocyte distribution width (RBC) [Ratio] 16.3 % High 11.5 - 14.5 % [place] Granulocytes/100 WBC (Bld) 77.5 % 40 - 80 % [place] Hematocrit (Bld) [Volume fraction] 32.6 % Low 35 - 47 % [place] Hemoglobin (Bld) [Mass/Vol] 11.0 g/dL Low 11.7 - 16 g/dL [place] Interpretation and review of laboratory results Abnormal [place] Lymphocytes (Bld) [#/Vol] 1.1 10*3/uL 1 - 4.3 10*3/uL [place] Lymphocytes/100 WBC (Bld) 15.8 % Low 20 - 40 % [place] MCH (RBC) [Entitic mass] 29.4 pg 26 - 34 pg [place] MCHC (RBC) [Mass/Vol] 33.7 % 32 - 36 % [place] MCV (RBC) [Entitic vol] 87.4 fL 79 - 98 fL [place], [place] Monocytes (Bld) [#/Vol] 0.4 10*3/uL 0 - 0.8 10*3/uL [place] Monocytes/100 WBC (Bld) 5.1 % 2 - 10 % [place], [place] Platelet mean volume (Bld) [Entitic vol] 7.9 fL 7.4 - 10.4 fL [place], [place] Platelets (Bld) [#/Vol] 332 10*3/uL 140 - 440 10*3/uL [place] RBC (Bld) [#/Vol] 3.73 10*6/uL Low 3.8 - 5.2 10*6/uL [place] WBC (Bld) [#/Vol] 6.9 10*3/uL 3.6 - 10.7 10*3/uL [place] Test Performed by [facility], [address], [place], [place] [address] [place] Comprehensive Metabolic Pane gigi 11-24-2020 Albumin [Mass/Vol] 3.6 g/dL 3.5 - 5 g/dL [place] ALP [Catalytic activity/Vol] 110 U/L 38 - 126 U/L [place] ALT [Catalytic activity/Vol] 36 U/L High 0 - 34 U/L [place] Comment on above: The ALT test is perf ormed by an updated assay method. Please note that the reference intervals have been changed and are now sex specific. Anion gap [Moles/Vol] 7 mmol/L [place] AST [Catalytic activity/Vol] 31 U/L 15 - 46 U/L [place] Bilirubin Ql (U) 0.6 mg/dL 0.2 - 1.3 mg/dL [place] Calcium [Mass/Vol] 9.1 mg/dL 8.4 - 10. 4 mg/dL [place] Chloride [Moles/Vol] 97 mmol/L Low 98 - 10 7 mmol/L [place] CO2 [Moles/Vol] 29 mmol/L 22 - 30 mmol/L [place] Creatinine [Mass/Vol] 0.74 mg/dL 0.52 - 1.25 mg/dL [place] EGFR IF NonAfrican Vincentian >90.0 >60 mL/min [place] Comment on above: KDIGO guidelines pro [...] MDRD (S/P/Bld) [Vol rate/Area] mL/min/{1.73_m2} >60 mL/min [place] Glucose [Mass/Vol] 304 mg/dL High 70 - 100 mg/dL [place] Interpretation and review of laboratory results Abnormal [place] Potassium [Moles/Vol] 4.3 mmol/L 3.5 - 5.1 mmol/L [place] Protein [Mass/Vol] 6.5 g/dL 6.3 - 8.2 g/dL [place] Sodium [Moles/Vol] 133 mmol/L Low 135 - 145 mmol/L [place] Urea nitrogen [Mass/Vol] 16 mg/dL 7 - 20 mg/dL [place] Test Performed by [facility], [address] [place], [place] [address] [place] Albumin [Mass/Vol] 3.6 g/dL 3.5 - 5 g/dL [place] ALP [Catalytic activity/Vol] 115 U/L 38 - 126 U/L [place] ALT [Catalytic activity/Vol] 35 U/L High 0 - 34 U/L [place] Comment on above: The ALT test is perf ormed by an updated assay method. Please note that the reference intervals have been changed and are now sex specific. Anion gap [Moles/Vol] 6 mmol/L [place] AST [Catalytic activity/Vol] 25 U/L 15 - 46 U/L [place] Bilirubin Ql (U) 0.6 mg/dL 0.2 - 1.3 mg/dL [place] Calcium [Mass/Vol] 9.0 mg/dL 8.4 - 10. 4 mg/dL [place] Chloride [Moles/Vol] 97 mmol/L Low 98 - 10 7 mmol/L [place] CO2 [Moles/Vol] 29 mmol/L 22 - 30 mmol/L [place] Creatinine [Mass/Vol] 0.78 mg/dL 0.52 - 1.25 mg/dL [place] EGFR IF NonAfrican Vincentian 86.1 mL/min >60 [place] Comment on above: KDIGO guidelines pro [...] MDRD (S/P/Bld) [Vol rate/Area] mL/min/{1.73_m2} >60 mL/min [place] Glucose [Mass/Vol] 308 mg/dL High 70 - 100 mg/dL [place] Interpretation and review of laboratory results Abnormal [place] Potassium [Moles/Vol] 4.8 mmol/L 3.5 - 5.1 mmol/L [place] Protein [Mass/Vol] 6.6 g/dL 6.3 - 8.2 g/dL [place] Sodium [Moles/Vol] 132 mmol/L Low 135 - 145 mmol/L [place], [place] Urea nitrogen [Mass/Vol] 18 mg/dL 7 - 20 mg/dL [place] Test Performed by [facility], [address], [place], [place] [address] [place], [place] EKG 12 [place] 11-24-2020 Robert [facility] Incoming Cardiology Results From [facility] - 11/24/2020 6:48 PM EST [facility] Test Date: 2020-11-22 Pat Name: Will Jacinto Department: Room: 158 Gender: F Charge Account Clerk: MALINDA : 1965 Requested By: JOEL NELSON Order Number: [id number] Reading MD: Brock Ortiz Measurements Intervals [place] Rate: 101 P: 58 IN: 176 QRS: -43 QRSD: 108 T: 47 QT: 380 QTc: 493 Interpretive Statements SINUS TACHYCARDIA LEFT ANTERIOR FASCICULAR BLOCK LATE PRECORDIAL R/S TRANSITION LEFT VENTRICULAR HYPERTROPHY Electronically Signed On 11-24-2020 18:47:09 EST by [facility] Test Date: 2020-11-22 Pat Name: Will Jacinto Department: Room: 158 Gender: F Charge Account Clerk: MALINDA : 1965 Requested By: JOEL NELSON Order Number: [id number] Reading MD: Brock Ortiz Measurements Intervals [place] Rate: 101 P: 58 IN: 176 QRS: -43 QRSD: 108 T: 47 QT: 380 QTc: 493 Interpretive Statements SINUS TACHYCARDIA LEFT ANTERIOR FASCICULAR BLOCK LATE PRECORDIAL R/S TRANSITION LEFT VENTRICULAR HYPERTROPHY Electronically Signed On 11-24-2020 18:47:09 EST by [facility] POCT Glucoseon 11-24-2020 Glucose [Mass/Vol] 159 mg/dL High 70 - 100 mg/dL [facility] Comment on above: Test performed by [employer] ucose meter. Results may be 10%-15% lower than serum/plasma values. (CLIA ID [id number]) Interpretation and review of laboratory results Abnormal [employer] Test Performed by [facility], [address] [place], [place], [place] [address] [employer] Glucose [Mass/Vol] 235 mg/dL High 70 - 100 mg/dL [facility] Comment on above: Test performed by gl ucose meter. Results may be 10%-15% lower than serum/plasma values. (CLIA ID [id number]) Interpretation and review of laboratory results Abnormal [employer] Test Performed by [facility], [address] Glucose [Mass/Vol] 298 mg/dL High 70 - 100 mg/dL [place] Comment on above: Test performed by gl ucose meter. Results may be 10%-15% lower than serum/plasma values. (CLIA ID [id number]) Interpretation and review of laboratory results Abnormal [place] Test Performed by [facility], [address] Glucose [Mass/Vol] 358 mg/dL High 70 - 100 mg/dL [place] Comment on above: Test performed by gl ucose meter. Results may be 10%-15% lower than serum/plasma values. (CLIA ID [id number]) Interpretation and review of laboratory results Abnormal [place] Test Performed by [facility], [address] [place] Troponinon 11-24-2020 Troponin I.cardiac [Mass/Vol] ng/mL 0 - 0.034 ng/mL [place] Comment on above: . Test Performed by [facility], [address] Troponin I.cardiac [Mass/Vol] ng/mL 0 - 0.034 ng/mL [place] Comment on above: . Test Performed by [facility], [address] CBC Auto Differentialon 11-08 Absolute Baso # 0.0 10*3/uL 0 - 0.2 10*3/uL [place] Absolute Neut # 7.6 10*3/uL High 1.8 - 7 10*3/uL [place], [place] Basophils/100 WBC (Bld) 0.3 % 0 - 2 % [place], [place] Eosinophils (Bld) [#/Vol] 0.0 10*3/uL 0 - 0.5 10*3/uL [place] Eosinophils/100 WBC (Bld) 0.1 % Low 1 - 6 % [place] Erythrocyte distribution width (RBC) [Ratio] 16.3 % High 11.5 - 14.5 % [place] Granulocytes/100 WBC (Bld) 85.6 % High 40 - 80 % [place] Hematocrit (Bld) [Volume fraction] 33.4 % Low 35 - 47 % [place] Hemoglobin (Bld) [Mass/Vol] 11.2 g/dL Low 11.7 - 16 g/dL [place] Interpretation and review of laboratory results Abnormal [place] Lymphocytes (Bld) [#/Vol] 0.7 10*3/uL Low 1 - 4.3 10*3/uL [place] Lymphocytes/100 WBC (Bld) 7.9 % Low 20 - 40 % [place] MCH (RBC) [Entitic mass] 29.5 pg 26 - 34 pg [place] MCHC (RBC) [Mass/Vol] 33.5 % 32 - 36 % [place] MCV (RBC) [Entitic vol] 88.0 fL 79 - 98 fL [place], [place] Monocytes (Bld) [#/Vol] 0.5 10*3/uL 0 - 0.8 10*3/uL [place] Monocytes/100 WBC (Bld) 6.1 % 2 - 10 % [place] Platelet mean volume (Bld) [Entitic vol] 8.0 fL 7.4 - 10.4 fL [place] Platelets (Bld) [#/Vol] 343 10*3/uL 140 - 440 10*3/uL [place] RBC (Bld) [#/Vol] 3.80 10*6/uL 3.8 - 5.2 10*6/uL [place] WBC (Bld) [#/Vol] 8.9 10*3/uL 3.6 - 10.7 10*3/uL [place] Test Performed by [facility], [address], [place], [place] [address] [place] [address] Comprehensive Metabolic Pane gigi 11-23-2020 Albumin [Mass/Vol] 3.9 g/dL 3.5 - 5 g/dL [place] ALP [Catalytic activity/Vol] 136 U/L High 38 - 126 U/L [place] ALT [Catalytic activity/Vol] 42 U/L High 0 - 34 U/L [place] Comment on above: The ALT test is perf ormed by an updated assay method. Please note that the reference intervals have been changed and are now sex specific. Anion gap [Moles/Vol] 11 mmol/L [place], [place] AST [Catalytic activity/Vol] 31 U/L 15 - 46 U/L [place] Bilirubin Ql (U) 0.6 mg/dL 0.2 - 1.3 mg/dL [place] Calcium [Mass/Vol] 9.6 mg/dL 8.4 - 10. 4 mg/dL [place] Chloride [Moles/Vol] 94 mmol/L Low 98 - 10 7 mmol/L [place] CO2 [Moles/Vol] 28 mmol/L 22 - 30 mmol/L [place] Creatinine [Mass/Vol] 0.86 mg/dL 0.52 - 1.25 mg/dL [place] EGFR IF NonAfrican Vincentian 76.5 mL/min >60 [place] Comment on above: KDIGO guidelines pro [...] MDRD (S/P/Bld) [Vol rate/Area] 88.7 mL/min/{1.73_m2} >60 [place] Glucose [Mass/Vol] 481 mg/dL Critically high 70 - 1 00 mg/dL [place] Interpretation and review of laboratory results Abnormal [place] Potassium [Moles/Vol] 4.8 mmol/L 3.5 - 5.1 mmol/L [place] Protein [Mass/Vol] 6.9 g/dL 6.3 - 8.2 g/dL [place] Sodium [Moles/Vol] 133 mmol/L Low 135 - 145 mmol/L [place], [place] Urea nitrogen [Mass/Vol] 20 mg/dL 7 - 20 mg/dL [place] Test Performed by [facility], [address], [place], [place] [address] [place] [address] GLUCOSEon 11-23-2020 Glucose [Mass/Vol] 521 mg/dL Critically high 70 - 1 00 mg/dL [place] Interpretation and review of laboratory results Abnormal [place] Test Performed by [facility], [address] [place], [place] [address] [place] [address] Hemoglobin A1Con 11-23-2020 eAG 240 mg/dL [place] HbA1c (Bld) [Mass fraction] 10.0 % Abnormal [place], [place] Comment on above: Normal less than 5.7 % Prediabetes 5.7% to 6.4% Diabetes 6.5% or higher --HgbA1C levels may not be accurate in patients who have renal disease, received recent blood transfusions, are anemic, or who have dyshemoglobinemia. Interpretation and review of laboratory results Abnormal [place] Test Performed by [facility], [address], [place], [place] [address] [place] [address] POCT Glucoseon 11-23-2020 Glucose [Mass/Vol] 305 mg/dL High 70 - 100 mg/dL [place], [place] Comment on above: Test performed by ucose meter. Results may be 10%-15% lower than serum/plasma values. (CLIA ID [id number]) Interpretation and review of laboratory results Abnormal [facility] Test Performed by [employer] [address] [place], [place] [address] [facility] Glucose [Mass/Vol] 427 mg/dL High 70 - 100 mg/dL [facility] Comment on above: Test performed by gl ucose meter. Results may be 10%-15% lower than serum/plasma values. (CLIA ID [id number]) Interpretation and review of laboratory results Abnormal [facility] Test Performed by [facility] [address] [place], [place] [address] [facility] [place] Glucose [Mass/Vol] 408 mg/dL High 70 - 100 mg/dL [facility] Comment on above: Test performed by gl ucose meter. Results may be 10%-15% lower than serum/plasma values. (CLIA ID [id number]) Interpretation and review of laboratory results Abnormal [facility] [place] Test Performed by [facility] [address] [place], [place] [address] [facility] [place] Glucose [Mass/Vol] 432 mg/dL High 70 - 100 mg/dL [facility] [place] Comment on above: Test performed by gl ucose meter. Results may be 10%-15% lower than serum/plasma values. (CLIA ID [id number]) Interpretation and review of laboratory results Abnormal [facility] Test Performed by [employer] [address] [place], [place] [address] [facility] [place] Respiratory Panel, Molecular , with COVID-19 (Restricted: peds pts or suitable admitted adults)on 11-23-2020 Respiratory Panel Molecular, with COVID NEGATIVE: No targets were detected by the [employer] Upper Respiratory Pathogens PCR Panel. _ Expected Result: Not Detected The [employer] Upper Respiratory Pathogens PCR Panel can detect [...] management decisions. This assay was developed by [employer] and distributed under an Emergency Use Authorization (EUA) granted by the FDA for the qualitative detection of SARS-CoV-2 nucleic acid. Provider and patient fact sheets can be found at https://www.fda.gov/medi a/682095/download and https://www.fda.gov/medi a/547618/download. [place] Test Performed by [address] [address] [place] Basic Metabolic Panelon 11-08 Anion gap [Moles/Vol] 17 mmol/L [place] Calcium [Mass/Vol] 9.8 mg/dL 8.4 - 10. 4 mg/dL [place] Chloride [Moles/Vol] 94 mmol/L Low 98 - 10 7 mmol/L [place] CO2 [Moles/Vol] 23 mmol/L 22 - 30 mmol/L [place] Creatinine [Mass/Vol] 0.75 mg/dL 0.52 - 1.25 mg/dL [place] EGFR IF NonAfrican Vincentian >90.0 >60 mL/min [place] Comment on above: KDIGO guidelines pro [...] MDRD (S/P/Bld) [Vol rate/Area] mL/min/{1.73_m2} >60 mL/min [place] Glucose [Mass/Vol] 522 mg/dL Critically high 70 - 1 00 mg/dL [place] Potassium [Moles/Vol] 5.5 mmol/L High 3.5 - 5.1 mmol/L [place] Sodium [Moles/Vol] 134 mmol/L Low 135 - 145 mmol/L [place] Urea nitrogen [Mass/Vol] 20 mg/dL 7 - 20 mg/dL [place] COVID-19, Rapidon 11-22-2020 Sodium [Moles/Vol] see below [place], [place] Comment on above: Not Detected Expected Result: Not Detected _ Isothermal nucleic acid amplification performed on the [employer]-Quad 22 Now System by the [facility] Negative results do not preclude SARS-CoV-2 infection and should not be used as the sole basis for treatment or other patient management decisions. This assay was developed by [employer] and distributed under an Emergency Use Authorization (EUA) granted by the FDA for the qualitative detection of SARS-CoV-2 nucleic acid. Provider and patient fact sheets can be found at https://www.fda.gov/media/931466/download and https://www.fda.gov/media/652383/download. Test Performed by [facility], [address] [place] [address]. [place], [place] [address] ORDER WAS CANCELLED 11/22/20 20:20, wrong test code. [place] Abdomen Pelvis W Contrast on 11-22-2020 [facility] Incoming Radiology Results From [facility] - 11/22/2020 7:44 PM EST Patient Name: WILL JACINTO Computed Tomography ACCESSION EXAM DATE/TIME PROCEDURE ORDERING PROVIDER [id number] 11/22/2020 19:[address] Abdomen/Pelvis w/ [place] [id number] -JOEL NELSON Contrast (IV Onl CPT code 37999 Q9967 Reason For Exam (CT Abdomen/Pelvis w/ [...] KEVIN Transcribed Date and Time: 11/22/2020 7:44 [place] Patient Name: WILL ALVARADO Computed Tomography ACCESSION EXAM DATE/TIME PROCEDURE ORDERING PROVIDER [id number] 11/22/2020 19:[address] Abdomen/Pelvis w/ [place] [id number] -BELLO NELSONSHUA Contrast (IV Onl CPT code 19097 Q9967 Reason For Exam (CT Abdomen/Pelvis w/ [...] KEVIN Transcribed Date and Time: 11/22/2020 7:44 [place] Hemogram (CBC) w/Auto Diffon 11-22-2020 Absolute Baso # 0.0 10*3/uL 0 - 0.2 10*3/uL [place] Absolute Neut # 8.1 10*3/uL High 1.8 - 7 10*3/uL [place] Basophils/100 WBC (Bld) 0.5 % 0 - 2 % [place] Eosinophils (Bld) [#/Vol] 0.0 10*3/uL 0 - 0.5 10*3/uL [place] Eosinophils/100 WBC (Bld) 0.3 % Low 1 - 6 % [place] Erythrocyte distribution width (RBC) [Ratio] 16.1 % High 11.5 - 14.5 % [place] Granulocytes/100 WBC (Bld) 84.9 % High 40 - 80 % [place] Hematocrit (Bld) [Volume fraction] 36.1 % 35 - 47 % [place] Hemoglobin (Bld) [Mass/Vol] 12.0 g/dL 11.7 - 16 g/dL [place] Interpretation and review of laboratory results Abnormal [place] Lymphocytes (Bld) [#/Vol] 0.9 10*3/uL Low 1 - 4.3 10*3/uL [place] Lymphocytes/100 WBC (Bld) 9.4 % Low 20 - 40 % [place] MCH (RBC) [Entitic mass] 29.0 pg 26 - 34 pg [place] MCHC (RBC) [Mass/Vol] 33.3 % 32 - 36 % [place] MCV (RBC) [Entitic vol] 87.2 fL 79 - 98 fL [place], [place] Monocytes (Bld) [#/Vol] 0.5 10*3/uL 0 - 0.8 10*3/uL [place] Monocytes/100 WBC (Bld) 4.9 % 2 - 10 % [place] Platelet mean volume (Bld) [Entitic vol] 8.1 fL 7.4 - 10.4 fL [place] Platelets (Bld) [#/Vol] 404 10*3/uL 140 - 440 10*3/uL [place] RBC (Bld) [#/Vol] 4.15 10*6/uL 3.8 - 5.2 10*6/uL [place] WBC (Bld) [#/Vol] 9.6 10*3/uL 3.6 - 10.7 10*3/uL [place] Test Performed by [facility], [address] [place], [address] Hepatic Function Panelon Albumin [Mass/Vol] 4.2 g/dL 3.5 - 5 g/dL [place] ALP [Catalytic activity/Vol] 181 U/L High 38 - 126 U/L [place] ALT [Catalytic activity/Vol] 44 U/L High 0 - 34 U/L [place] Comment on above: The ALT test is perf ormed by an updated assay method. Please note that the reference intervals have been changed and are now sex specific. AST [Catalytic activity/Vol] 30 U/L 15 - 46 U/L [place] Bilirubin Ql (U) 0.6 mg/dL 0.2 - 1.3 mg/dL [place] Bilirubin.direct [Mass/Vol] 0.0 mg/dL 0 - 0.3 mg/dL [place] Protein [Mass/Vol] 7.4 g/dL 6.3 - 8.2 g/dL [place] Otheron 11-22-2020 Interpretation and review of laboratory results Abnormal [place] Test Performed by [facility], [address] [place], [address] POCT GLUCOSEon 11-22-2020 Glucose [Mass/Vol] 470 mg/dL [place] Interpretation and review of laboratory results Normal [place] QC OK? yes [place] Troponin x1on 11-22-2020 Troponin I.cardiac [Mass/Vol] ng/mL 0 - 0.034 ng/mL [place] Comment on above: . Test Performed by [facility], [address] Urinalysison 11-22-2020 Appearance (U) Turbid Abnormal Clear NA [place] Comment on above: . Bilirubin Urine Negative Negative mg/dL [place] Comment on above: . Color (U) Light-Finney Abnormal Lt. Yellow NA [place] Comment on above: . Glucose, Ur >1,000 Abnormal Normal (<70) mg/dL [place] Comment on above: . Interpretation and review of laboratory results Abnormal [place] Ketones Ql (U) 40 mg/dL Abnormal Negative [place] Comment on above: . LEUKOCYTES, UA 75 Abnormal Negative Kat/uL [place] Comment on above: . Nitrite, Urine Negative Negative NA [place] Comment on above: . Occult Blood,Urine >1.0 Abnormal Negative mg/dL [place] Comment on above: . pH (U) 6.0 [pH] [place] Comment on above: . Protein (U) [Mass/Vol] 10 mg/dL Abnormal Negative Me [place] Comment on above: . RBC (U) [#/Vol] /uL Abnormal 0 - 2 /[HPF] [place] Comment on above: . Specific [place], Urine 1.025 M [place] Comment on above: . Squam Epithel, UA 0-2 3 - 5 /[HPF] [place] Comment on above: . Urobilinogen, Urine Normal Normal (0-1) mg/dL [place] Comment on above: . WBC, UA 0-2 0 - 5 /[HPF] [place] Comment on above: . Test Performed by [facility], [address] [place], [place], [place] [address] [place] XR CHEST PORTABLEon 11-22-19 21 [facility] Incoming Radiology Results From [facility] - 11/22/2020 6:33 PM EST Patient Name: WILL JACINTO Diagnostic Radiology ACCESSION EXAM DATE/TIME PROCEDURE ORDERING PROVIDER [id number] 11/22/2020 18:30 EST CR Chest Portable [id number] -JOEL NELSON CPT code 92629 Reason For Exam (CR Chest Portable) SOB [...] B Transcribed Date and Time: 11/22/2020 6:33 [place], [place] Patient Name: WILL ALVARADO Diagnostic Radiology ACCESSION EXAM DATE/TIME PROCEDURE ORDERING PROVIDER [id number] 11/22/2020 18:30 EST CR Chest Portable [id number] -BELLO NELSONSHUA CPT code 66354 Reason For Exam (CR Chest Portable) SOB [...] B Transcribed Date and Time: 11/22/2020 6:33 [place], [place] NM GASTRIC EMPTYINGon 2019 [facility] Incoming Radiology Results From [facility] [place] - 09/30/2020 2:38 PM EST Patient Name: WILL JACINTO ---Nuc Med--- Exam Date/Time 09/30/2020 14:12:07 EST Exam NM Gastric Emptying Study Ordering Physician MD MUNIZ REYNALDO C. Accession Number [id number] CPT4 Codes 82589 () Reason For Exam nausea, diabetees Report [...] ANTHONY Transcribed Date and Time: 09/30/2020 2:38 [place] Patient Name: WILL ALVARADO ---Nuc Med--- Exam Date/Time 09/30/2020 14:12:07 EST Exam NM Gastric Emptying Study Ordering Physician MD MUNIZ REYNALDO C. Accession Number [id number] CPT4 Codes 45379 () Reason For Exam nausea, diabetees Report [...] ANTHONY Transcribed Date and Time: 09/30/2020 2:38 [place] POC Glucose, Whole Bloodon 1 11-30-2019 Glucose [Mass/Vol] mg/dL High 70 - 100 mg/dL [place] Comment on above: Test performed by gl ucose meter. Results may be 10%-15% lower than serum/plasma values. (CLIA ID [id number]) Interpretation and review of laboratory results Abnormal [facility] Sodium [Moles/Vol] see below [facility] Comment on above: No confirmation rece ived. Test Performed by [facility], [address] [place] [address] [facility] POCT Glucoseon 09-30-2020 Glucose [Mass/Vol] 394 mg/dL High 70 - 100 mg/dL [facility] Comment on above: Test performed by gl ucose meter. Results may be 10%-15% lower than serum/plasma values. (CLIA ID [id number]) Interpretation and review of laboratory results Abnormal [facility] Test Performed by [facility], [address] [place], [place] [address] [facility] Glucose [Mass/Vol] 356 mg/dL High 70 - 100 mg/dL [facility] Comment on above: Test performed by gl ucose meter. Results may be 10%-15% lower than serum/plasma values. (CLIA ID [id number]) Interpretation and review of laboratory results Abnormal [facility] Test Performed by [facility], [address] [place] [address] [facility] [place] Glucose [Mass/Vol] 257 mg/dL High 70 - 100 mg/dL [facility] Comment on above: Test performed by gl ucose meter. Results may be 10%-15% lower than serum/plasma values. (CLIA ID [id number]) Interpretation and review of laboratory results Abnormal [facility] Test Performed by [facility], [address] [place], [place] [address] [facility] [place] POCT Glucoseon 09-29-2020 Glucose [Mass/Vol] 209 mg/dL High 70 - 100 mg/dL [facility] Comment on above: Test performed by gl ucose meter. Results may be 10%-15% lower than serum/plasma values. (CLIA ID [id number]) Interpretation and review of laboratory results Abnormal [facility] [place] Test Performed by [facility], [address] [place], [place] [address] [facility] Glucose [Mass/Vol] 301 mg/dL High 70 - 100 mg/dL [employer] [facility] Comment on above: Test performed by gl ucose meter. Results may be 10%-15% lower than serum/plasma values. (CLIA ID [id number]) Interpretation and review of laboratory results Abnormal [employer] [facility] Test Performed by [facility], [address] [place], [place] [address] [facility] [place] Glucose [Mass/Vol] 200 mg/dL High 70 - 100 mg/dL [facility] [place] Comment on above: Test performed by gl ucose meter. Results may be 10%-15% lower than serum/plasma values. (CLIA ID [id number]) Interpretation and review of laboratory results Abnormal [facility], [place] Test Performed by [facility], [address] [place], [place], [place] [address] [facility] [place] COVID-19on 09-28-2020 SARS-CoV-2 Not Detected Not Detected [facility] [place] Comment on above: Not Detected Expected Result: Not Detected _ Real-time, RT-PCR performed on the Red Zebra System by the [facility] Microbiology Service Negative results do not preclude SARS-CoV-2 infection and should not be used as the sole basis for treatment or other patient management decisions. This assay was developed by [employer] and distributed under an Emergency Use Authorization (EUA) granted by the FDA for the qualitative detection of SARS-CoV-2 nucleic acid. Provider and patient fact sheets can be found at https://www.fda.gov/media/442380/download and https://www.fda.gov/media/724309/download. Test Performed by [facility], [address] [place] [id number] Specimen Source Comment:Nasopharyngeal Swab [facility] [facility], [place] POCT Glucoseon 09-28-2020 Glucose [Mass/Vol] 346 mg/dL High 70 - 100 mg/dL [facility] [place] Comment on above: Test performed by gl ucose meter. Results may be 10%-15% lower than serum/plasma values. (CLIA ID [id number]) Interpretation and review of laboratory results Abnormal [facility] [place], [place] Test Performed by [facility], [address], [place], [place] [address] [facility] Glucose [Mass/Vol] 385 mg/dL High 70 - 100 mg/dL [facility] [place] Comment on above: Test performed by gl ucose meter. Results may be 10%-15% lower than serum/plasma values. (CLIA ID [id number]) Interpretation and review of laboratory results Abnormal [facility] [place] Test Performed by [facility], [address], [place] [address] [facility] Glucose [Mass/Vol] 393 mg/dL High 70 - 100 mg/dL [facility] [place] Comment on above: Test performed by gl ucose meter. Results may be 10%-15% lower than serum/plasma values. (CLIA ID [id number]) Interpretation and review of laboratory results Abnormal [facility] [place] Test Performed by [facility], [address] [place], [place] [address] [facility] Glucose [Mass/Vol] 322 mg/dL High 70 - 100 mg/dL [facility] [place] Comment on above: Test performed by gl ucose meter. Results may be 10%-15% lower than serum/plasma values. (CLIA ID [id number]) Interpretation and review of laboratory results Abnormal [facility] [place] Test Performed by [facility], [address] [place], [place] [address] [facility] [place] Glucose [Mass/Vol] 325 mg/dL High 70 - 100 mg/dL [facility] [place] Comment on above: Test performed by gl ucose meter. Results may be 10%-15% lower than serum/plasma values. (CLIA ID [id number]) Interpretation and review of laboratory results Abnormal [facility] [place] Test Performed by [facility], [address] [place], [place] [address] [facility] Glucose [Mass/Vol] 230 mg/dL High 70 - 100 mg/dL [facility] [place] Comment on above: Test performed by gl ucose meter. Results may be 10%-15% lower than serum/plasma values. (CLIA ID [id number]) Interpretation and review of laboratory results Abnormal [facility] [place] Test Performed by [facility], [address] [place] [address] [facility] [place] Glucose [Mass/Vol] 233 mg/dL High 70 - 100 mg/dL [facility] [place] Comment on above: Test performed by gl ucose meter. Results may be 10%-15% lower than serum/plasma values. (CLIA ID [id number]) Interpretation and review of laboratory results Abnormal [facility] [place] Test Performed by [facility], [address] [place] [address] [facility] [place] POCT Glucoseon 09-27-2020 Glucose [Mass/Vol] 248 mg/dL High 70 - 100 mg/dL [facility] [place] Comment on above: Test performed by gl ucose meter. Results may be 10%-15% lower than serum/plasma values. (CLIA ID [id number]) Interpretation and review of laboratory results Abnormal [facility] [place] Test Performed by [facility], [address], [place], [place] [address] [facility] [place] Glucose [Mass/Vol] 275 mg/dL High 70 - 100 mg/dL [facility] [place] Comment on above: Test performed by gl ucose meter. Results may be 10%-15% lower than serum/plasma values. (CLIA ID [id number]) Interpretation and review of laboratory results Abnormal [facility] [place] Test Performed by [facility], [address] [place] [address] [facility] [place] Glucose [Mass/Vol] 312 mg/dL High 70 - 100 mg/dL [facility] [place] Comment on above: Test performed by gl ucose meter. Results may be 10%-15% lower than serum/plasma values. (CLIA ID [id number]) Interpretation and review of laboratory results Abnormal [facility] [place] Test Performed by [facility], [address] [place] [address] [facility] [place] Glucose [Mass/Vol] 151 mg/dL High 70 - 100 mg/dL [facility] [place] Comment on above: Test performed by gl ucose meter. Results may be 10%-15% lower than serum/plasma values. (CLIA ID [id number]) Interpretation and review of laboratory results Abnormal [place] Test Performed by [facility], [address], [place], [place] [address] [place] CBC Auto Differentialon 09-08 Absolute Baso # 0.1 10*3/uL 0 - 0.2 10*3/uL [place] Absolute Neut # 7.0 10*3/uL 1.8 - 7 10*3/uL [place] Basophils/100 WBC (Bld) 1.0 % 0 - 2 % [place] Eosinophils (Bld) [#/Vol] 0.1 10*3/uL 0 - 0.5 10*3/uL [place] Eosinophils/100 WBC (Bld) 1.2 % 1 - 6 % [place] Erythrocyte distribution width (RBC) [Ratio] 15.5 % High 11.5 - 14.5 % [place] Granulocytes/100 WBC (Bld) 71.3 % 40 - 80 % [place] Hematocrit (Bld) [Volume fraction] 38.5 % 35 - 47 % [place] Hemoglobin (Bld) [Mass/Vol] 12.6 g/dL 11.7 - 16 g/dL [place] Interpretation and review of laboratory results Abnormal [place] Lymphocytes (Bld) [#/Vol] 1.6 10*3/uL 1 - 4.3 10*3/uL [place] Lymphocytes/100 WBC (Bld) 16.1 % Low 20 - 40 % [place] MCH (RBC) [Entitic mass] 28.5 pg 26 - 34 pg [place] MCHC (RBC) [Mass/Vol] 32.7 % 32 - 36 % [place] MCV (RBC) [Entitic vol] 87.2 fL 79 - 98 fL [place] Monocytes (Bld) [#/Vol] 1.0 10*3/uL High 0 - 0.8 10*3/uL [place] Monocytes/100 WBC (Bld) 10.4 % High 2 - 10 % [place] Platelet mean volume (Bld) [Entitic vol] 8.1 fL 7.4 - 10.4 fL [place] Platelets (Bld) [#/Vol] 508 10*3/uL High 140 - 440 10*3/uL [place] RBC (Bld) [#/Vol] 4.41 10*6/uL 3.8 - 5.2 10*6/uL [place] WBC (Bld) [#/Vol] 9.8 10*3/uL 3.6 - 10.7 10*3/uL [place] Test Performed by [facility], [address], [place], [place] [address] [place] Comprehensive Metabolic Pane gigi 09-26-2020 Albumin [Mass/Vol] 4.0 g/dL 3.5 - 5 g/dL [place] ALP [Catalytic activity/Vol] 120 U/L 38 - 126 U/L [place] ALT [Catalytic activity/Vol] 127 U/L High 0 - 34 U/L [place] Comment on above: The ALT test is perf ormed by an updated assay method. Please note that the reference intervals have been changed and are now sex specific. Anion gap [Moles/Vol] 12 mmol/L [place] AST [Catalytic activity/Vol] 64 U/L High 15 - 46 U/L [place] Bilirubin Ql (U) 1.4 mg/dL High 0.2 - 1.3 mg/dL [place] Calcium [Mass/Vol] 8.9 mg/dL 8.4 - 10. 4 mg/dL [place] Chloride [Moles/Vol] 97 mmol/L Low 98 - 10 7 mmol/L [place] CO2 [Moles/Vol] 24 mmol/L 22 - 30 mmol/L [place] Creatinine [Mass/Vol] 1.13 mg/dL 0.52 - 1.25 mg/dL [place] EGFR IF NonAfrican Vincentian 55.1 mL/min Abnormal >60 [place], [place] Comment on above: KDIGO guidelines pro [...] MDRD (S/P/Bld) [Vol rate/Area] 63.8 mL/min/{1.73_m2} >60 [place] Glucose [Mass/Vol] 207 mg/dL High 70 - 100 mg/dL [place] Interpretation and review of laboratory results Abnormal [place] Potassium [Moles/Vol] 4.8 mmol/L 3.5 - 5.1 mmol/L [place] Protein [Mass/Vol] 7.7 g/dL 6.3 - 8.2 g/dL [place] Sodium [Moles/Vol] 133 mmol/L Low 135 - 145 mmol/L [place] Urea nitrogen [Mass/Vol] 32 mg/dL High 7 - 20 mg/dL [place] Test Performed by [facility] [place] [facility], [address], [place], [place] [address] [place] POCT Glucoseon 09-26-2020 Glucose [Mass/Vol] 124 mg/dL High 70 - 100 mg/dL [place] Comment on above: Test performed by ucose meter. Results may be 10%-15% lower than serum/plasma values. (CLIA ID [id number]) Interpretation and review of laboratory results Abnormal [facility] [place] Test Performed by [facility], [address] [place] [address] [facility] Glucose [Mass/Vol] 225 mg/dL High 70 - 100 mg/dL [facility] [place] Comment on above: Test performed by gl ucose meter. Results may be 10%-15% lower than serum/plasma values. (CLIA ID [id number]) Interpretation and review of laboratory results Abnormal [facility] [place] Test Performed by [facility], [address] [place] [address] [facility] Glucose [Mass/Vol] 308 mg/dL High 70 - 100 mg/dL [facility] [place] Comment on above: Test performed by gl ucose meter. Results may be 10%-15% lower than serum/plasma values. (CLIA ID [id number]) Interpretation and review of laboratory results Abnormal [facility] [place] Test Performed by [facility], [address] [place] [address] [facility] Glucose [Mass/Vol] 259 mg/dL High 70 - 100 mg/dL [facility] [place] Comment on above: Test performed by gl ucose meter. Results may be 10%-15% lower than serum/plasma values. (CLIA ID [id number]) Interpretation and review of laboratory results Abnormal [facility] [place] Test Performed by [facility], [address] [place], [place] [address] [facility] Glucose [Mass/Vol] 223 mg/dL High 70 - 100 mg/dL [facility] [place] Comment on above: Test performed by gl ucose meter. Results may be 10%-15% lower than serum/plasma values. (CLIA ID [id number]) Interpretation and review of laboratory results Abnormal [facility] [place] Test Performed by [facility], [address] [place] [address] [facility] [place] ECHO Complete 2D W Doppler W Coloron 09-25-2020 [facility] Incoming Cardiology Results From [facility] - 09/25/2020 4:03 PM EST TRANSTHORACIC ECHOCARDIOGRAM PATIENT: Will Jacinto STUDY DATE: 09/25/2020 : 1965 AGE: 54 HT/WT: 167.6 cm (66 155.9 kg in) (343 lb) GENDER: F BP: 130 / 87 LOCATION: [facility] PATIENT Inpatient [facility] STATUS: *ORDERING PHYSICIAN: * Priyank Rios MD *READING PHYSICIAN: * Ga Davenport MD *SPLICING MACHINE OPERATOR AUTOMATIC: * Jayda Richardson INDICATIONS: SVT. CONCLUSIONS SUMMARY: [...] Ga Davenport MD 09/25/2020 16:02 Prior Signatures: [employer] TRANSTHORACIC ECHOCARDIOGRAM PATIENT: Will Jacinto STUDY DATE: 09/25/2020 : 1965 AGE: 54 HT/WT: 167.6 cm (66 155.9 kg in) (343 lb) GENDER: F BP: 130 / 87 LOCATION: [facility] PATIENT Inpatient [facility] STATUS: *ORDERING PHYSICIAN: * Priyank Rios MD *READING PHYSICIAN: * Ga Davenport MD *SPLICING MACHINE OPERATOR AUTOMATIC: * Jayda Richardson INDICATIONS: SVT. CONCLUSIONS SUMMARY: [...] Ga Davenport MD 09/25/2020 16:02 Prior Signatures: [employer] POCT Glucoseon 09-25-2020 Glucose [Mass/Vol] 126 mg/dL High 70 - 100 mg/dL [facility] [place] Comment on above: Test performed by [employer] ucose meter. Results may be 10%-15% lower than serum/plasma values. (CLIA ID [id number]) Interpretation and review of laboratory results Abnormal [facility] Test Performed by [facility], [address] [employer] Glucose [Mass/Vol] 124 mg/dL High 70 - 100 mg/dL [facility] [employer] Comment on above: Test performed by [employer] ucose meter. Results may be 10%-15% lower than serum/plasma values. (CLIA ID [id number]) Interpretation and review of laboratory results Abnormal [facility] Test Performed by [facility], [address] [place] [address] [facility] Glucose [Mass/Vol] 173 mg/dL High 70 - 100 mg/dL [facility] Comment on above: Test performed by gl ucose meter. Results may be 10%-15% lower than serum/plasma values. (CLIA ID [id number]) Interpretation and review of laboratory results Abnormal [facility] [place] Test Performed by [employer] [address] [place] [address] [employer] Glucose [Mass/Vol] 121 mg/dL High 70 - 100 mg/dL [employer] Comment on above: Test performed by gl ucose meter. Results may be 10%-15% lower than serum/plasma values. (CLIA ID [id number]) Interpretation and review of laboratory results Abnormal [employer] Test Performed by [facility], [address] [place], [place] [address] [employer] [place] [place] XR ABDOMEN (KUB) (SINGLE AP VIEW)on 09-25-2020 [facility], [facility] Incoming Radiology Results From [facility] - 09/25/2020 3:10 PM EST Patient Name: WILL JACINTO ---Diagnostic Radiology--- Exam Date/Time 09/25/2020 14:00:36 EST Exam CR Abdomen AP Ordering Physician DO HILL LISA Accession Number [id number] CPT4 Codes 35975 () Reason For Exam ileus Report CLINICAL [...] HARLAN Transcribed Date and Time: 09/25/2020 3:09 [place] Patient Name: WILL ALVARADO ---Diagnostic Radiology--- Exam Date/Time 09/25/2020 14:00:36 EST Exam CR Abdomen AP Ordering Physician DO HILL LISA Accession Number [id number] CPT4 Codes 38284 () Reason For Exam ileus Report CLINICAL [...] HARLAN Transcribed Date and Time: 09/25/2020 3:09 [place] CBC Auto Differentialon 11- Absolute Baso # 0.0 10*3/uL 0 - 0.2 10*3/uL [place] Absolute Neut # 5.3 10*3/uL 1.8 - 7 10*3/uL [place] Basophils/100 WBC (Bld) 0.4 % 0 - 2 % [place] Eosinophils (Bld) [#/Vol] 0.1 10*3/uL 0 - 0.5 10*3/uL [place] Eosinophils/100 WBC (Bld) 1.6 % 1 - 6 % [place] Erythrocyte distribution width (RBC) [Ratio] 15.8 % High 11.5 - 14.5 % [place] Granulocytes/100 WBC (Bld) 74.9 % 40 - 80 % [place] Hematocrit (Bld) [Volume fraction] 59.6 % High 35 - 47 % [place] Hemoglobin (Bld) [Mass/Vol] 19.3 g/dL High 11.7 - 16 g/dL [place] Interpretation and review of laboratory results Abnormal [place] Lymphocytes (Bld) [#/Vol] 1.0 10*3/uL 1 - 4.3 10*3/uL [place] Lymphocytes/100 WBC (Bld) 14.1 % Low 20 - 40 % [place] MCH (RBC) [Entitic mass] 28.3 pg 26 - 34 pg [place] MCHC (RBC) [Mass/Vol] 32.4 % 32 - 36 % [place] MCV (RBC) [Entitic vol] 87.2 fL 79 - 98 fL [place], [place] Monocytes (Bld) [#/Vol] 0.6 10*3/uL 0 - 0.8 10*3/uL [place] Monocytes/100 WBC (Bld) 9.0 % 2 - 10 % [place] Platelet mean volume (Bld) [Entitic vol] 7.5 fL 7.4 - 10.4 fL [place] Platelets (Bld) [#/Vol] 215 10*3/uL 140 - 440 10*3/uL [place] RBC (Bld) [#/Vol] 6.83 10*6/uL High 3.8 - 5.2 10*6/uL [place] WBC (Bld) [#/Vol] 7.1 10*3/uL 3.6 - 10.7 10*3/uL [place] Test Performed by [facility], [address], [place], [place] [address] [place] Comprehensive Metabolic Pane gigi 09-24-2020 Albumin [Mass/Vol] 3.6 g/dL 3.5 - 5 g/dL [place] ALP [Catalytic activity/Vol] 116 U/L 38 - 126 U/L [place] ALT [Catalytic activity/Vol] 113 U/L High 0 - 34 U/L [place] Comment on above: The ALT test is perf ormed by an updated assay method. Please note that the reference intervals have been changed and are now sex specific. Anion gap [Moles/Vol] 8 mmol/L [place] AST [Catalytic activity/Vol] 53 U/L High 15 - 46 U/L [place] Bilirubin Ql (U) 0.9 mg/dL 0.2 - 1.3 mg/dL [place] Calcium [Mass/Vol] 8.7 mg/dL 8.4 - 10. 4 mg/dL [place] Chloride [Moles/Vol] 99 mmol/L 98 - 10 7 mmol/L [place] CO2 [Moles/Vol] 27 mmol/L 22 - 30 mmol/L [place] Creatinine [Mass/Vol] 1.97 mg/dL High 0.52 - 1.25 mg/dL [place] EGFR IF NonAfrican Vincentian 28.1 mL/min Abnormal >60 [place], [place] Comment on above: KDIGO guidelines pro [...] (S/P/Bld) [Vol rate/Area] 32.6 mL/min/{1.73_m2} Abnormal >60 [place], [place] Glucose [Mass/Vol] 110 mg/dL High 70 - 100 mg/dL [place] Interpretation and review of laboratory results Abnormal [place] Potassium [Moles/Vol] 3.7 mmol/L 3.5 - 5.1 mmol/L [place] Protein [Mass/Vol] 6.7 g/dL 6.3 - 8.2 g/dL [place] Sodium [Moles/Vol] 133 mmol/L Low 135 - 145 mmol/L [place] Urea nitrogen [Mass/Vol] 29 mg/dL High 7 - 20 mg/dL [place] Test Performed by [facility], [address] MAGNESIUMon 09-24-2020 Magnesium [Mass/Vol] 1.7 mg/dL 1.6 - 2 .3 mg/dL [place] Test Performed by [facility], [address] [place], [place] [address] [place] [address] POCT Glucoseon 09-24-2020 Glucose [Mass/Vol] 119 mg/dL High 70 - 100 mg/dL [place] Comment on above: Test performed by [employer] ucose meter. Results may be 10%-15% lower than serum/plasma values. (CLIA ID [id number]) Interpretation and review of laboratory results Abnormal [place] Test Performed by [facility], [address] [place], [place] [address] [place] Glucose [Mass/Vol] 187 mg/dL High 70 - 100 mg/dL [place] Comment on above: Test performed by gl ucose meter. Results may be 10%-15% lower than serum/plasma values. (CLIA ID [id number]) Interpretation and review of laboratory results Abnormal [facility] Test Performed by [facility], [address], [place], [place] [address] [facility] Glucose [Mass/Vol] 237 mg/dL High 70 - 100 mg/dL [facility] Comment on above: Test performed by gl ucose meter. Results may be 10%-15% lower than serum/plasma values. (CLIA ID [id number]) Interpretation and review of laboratory results Abnormal [facility] [employer] [place] Test Performed by [facility], [address], [place], [place] [address] [facility] [place] Glucose [Mass/Vol] 119 mg/dL High 70 - 100 mg/dL [facility] Comment on above: Test performed by gl ucose meter. Results may be 10%-15% lower than serum/plasma values. (CLIA ID [id number]) Interpretation and review of laboratory results Abnormal [facility] [employer] [place] Test Performed by [facility], [address] [place], [place], [place] [address] [facility], [place] Surgical Pathologyon 020 Sodium [Moles/Vol] SEE BELOW [facility], [place] 1 [id number] [facility] PATHOLOGY AND LABORATORY MEDICINE [address] [place] [address] Fax - FINAL SURGICAL PATHOLOGY REPORT NAME: WILL JACINTO : 1965 54 Y F BILLING NO.: [id number] LOCATION: [id number] 260 1 PROCEDURE 09/19/2020 DATE: SURGEON: SREGIO SIBLEY D.O. RECEIVED 09/19/2020 DATE: ATTENDING: NABIL [...] characteristics determined by the clinical laboratories of [facility]. They have not been cleared by the [...] negativity on decalcified specimens. Case reviewed at [facility] [address] [place] [address]. DEPARTMENT OF PATHOLOGY AND LABORATORY MEDICINE [place], [place] [address] [place], [place] Troponinon 09-24-2020 Troponin I.cardiac [Mass/Vol] ng/mL 0 - 0.034 ng/mL [place], [place] Comment on above: . Test Performed by [facility], [address] [place], [place] [address] Chemistry specimen is slightly hemolyzed. Interpret results with caution. [place], [place] XR ABDOMEN (KUB) (SINGLE AP VIEW)on 09-24-2020 [facility] Incoming Radiology Results From [facility] - 09/24/2020 9:24 AM EST Patient Name: WILL JACINTO ---Diagnostic Radiology--- Exam Date/Time 09/24/2020 09:15:19 EST Exam CR Abdomen AP Ordering Physician DO HILL LISA Accession Number [id number] CPT4 Codes 64193 () Reason For Exam ileus Report Abdomen [...] lateral decubitus views. Report Dictated on Workstation: IR [facility] --- Final --- Dictating Physician: MD UNDERWOOD BRIAN Signed Date and Time: 09/24/2020 9:22 am Signed by: MD UNDERWOOD BRIAN Transcribed Date and Time: 09/24/2020 9:23 [place], [place] Patient Name: WILL ALVARADO ---Diagnostic Radiology--- Exam Date/Time 09/24/2020 09:15:19 EST Exam CR Abdomen AP Ordering Physician JOLANTA NABIL BERMEO Accession Number [id number] CPT4 Codes 19842 () Reason For Exam ileus Report Abdomen [...] lateral decubitus views. Report Dictated on Workstation: [facility] --- Final --- Dictating Physician: MD UNDERWOOD BRIAN Signed Date and Time: 09/24/2020 9:22 am Signed by: MD UNDERWOOD BRIAN Transcribed Date and Time: 09/24/2020 9:23 [place], [place] CBC Auto Differentialon 11-1 Absolute Baso # 0.1 10*3/uL 0 - 0.2 10*3/uL [place] Absolute Neut # 8.9 10*3/uL High 1.8 - 7 10*3/uL [place], [place] Basophils/100 WBC (Bld) 0.7 % 0 - 2 % [place] Eosinophils (Bld) [#/Vol] 0.1 10*3/uL 0 - 0.5 10*3/uL [place] Eosinophils/100 WBC (Bld) 1.1 % 1 - 6 % [place] Erythrocyte distribution width (RBC) [Ratio] 15.2 % High 11.5 - 14.5 % [place] Granulocytes/100 WBC (Bld) 73.0 % 40 - 80 % [place] Hematocrit (Bld) [Volume fraction] 35.4 % 35 - 47 % [place] Hemoglobin (Bld) [Mass/Vol] 11.8 g/dL 11.7 - 16 g/dL [place] Interpretation and review of laboratory results Abnormal [place] Lymphocytes (Bld) [#/Vol] 1.9 10*3/uL 1 - 4.3 10*3/uL [place] Lymphocytes/100 WBC (Bld) 15.7 % Low 20 - 40 % [place] MCH (RBC) [Entitic mass] 29.0 pg 26 - 34 pg [place] MCHC (RBC) [Mass/Vol] 33.4 % 32 - 36 % [place] MCV (RBC) [Entitic vol] 86.8 fL 79 - 98 fL [place], [place] Monocytes (Bld) [#/Vol] 1.2 10*3/uL High 0 - 0.8 10*3/uL [place], [place] Monocytes/100 WBC (Bld) 9.5 % 2 - 10 % [place] Platelet mean volume (Bld) [Entitic vol] 7.3 fL Low 7.4 - 10.4 fL [place] Platelets (Bld) [#/Vol] 454 10*3/uL High 140 - 440 10*3/uL [place] RBC (Bld) [#/Vol] 4.08 10*6/uL 3.8 - 5.2 10*6/uL [place] WBC (Bld) [#/Vol] 12.1 10*3/uL High 3.6 - 10.7 10*3/uL [place] Test Performed by [facility], [address], [place], [place] [address] [place], [place] Comprehensive Metabolic Pane gigi 09-23-2020 Albumin [Mass/Vol] 3.7 g/dL 3.5 - 5 g/dL [place], [place] ALP [Catalytic activity/Vol] 150 U/L High 38 - 126 U/L [place] ALT [Catalytic activity/Vol] 126 U/L High 0 - 34 U/L [place], [place] Comment on above: The ALT test is perf ormed by an updated assay method. Please note that the reference intervals have been changed and are now sex specific. Anion gap [Moles/Vol] 10 mmol/L [place], [place] AST [Catalytic activity/Vol] 42 U/L 15 - 46 U/L [place] Bilirubin Ql (U) 0.9 mg/dL 0.2 - 1.3 mg/dL [place] Calcium [Mass/Vol] 8.6 mg/dL 8.4 - 10. 4 mg/dL [place] Chloride [Moles/Vol] 93 mmol/L Low 98 - 10 7 mmol/L [place] CO2 [Moles/Vol] 24 mmol/L 22 - 30 mmol/L [place] Creatinine [Mass/Vol] 1.05 mg/dL 0.52 - 1.25 mg/dL [place] EGFR IF NonAfrican Vincentian 60.2 mL/min >60 [place], [place] Comment on above: KDIGO guidelines pro [...] MDRD (S/P/Bld) [Vol rate/Area] 69.8 mL/min/{1.73_m2} >60 [place], [place] Glucose [Mass/Vol] 242 mg/dL High 70 - 100 mg/dL [place] Interpretation and review of laboratory results Abnormal [place], [place] Potassium [Moles/Vol] 3.9 mmol/L 3.5 - 5.1 mmol/L [place] Protein [Mass/Vol] 7.2 g/dL 6.3 - 8.2 g/dL [place] Sodium [Moles/Vol] 127 mmol/L Low 135 - 145 mmol/L [place], [place] Urea nitrogen [Mass/Vol] 26 mg/dL High 7 - 20 mg/dL [place] Test Performed by [facility] [place] [facility], [address] [place], [place] [address] [place], [place] POC Glucose, Whole Bloodon 11-23-2019 Glucose [Mass/Vol] mg/dL High 70 - 100 mg/dL [place], [place] Comment on above: Test performed by ucose meter. Results may be 10%-15% lower than serum/plasma values. (CLIA ID [id number]) Interpretation and review of laboratory results Abnormal [place] Sodium [Moles/Vol] see below [place], [place] Comment on above: No confirmation rece ived. Test Performed by [facility], [address], [place], [place] [address] [place] [address] [place] POCT Glucoseon 09-23-2020 Glucose [Mass/Vol] 171 mg/dL High 70 - 100 mg/dL [facility] Comment on above: Test performed by gl ucose meter. Results may be 10%-15% lower than serum/plasma values. (CLIA ID [id number]) Interpretation and review of laboratory results Abnormal [facility] Test Performed by [facility], [address], [place], [place] [address] [place] [address] [place] Glucose [Mass/Vol] 278 mg/dL High 70 - 100 mg/dL [facility] Comment on above: Test performed by gl ucose meter. Results may be 10%-15% lower than serum/plasma values. (CLIA ID [id number]) Interpretation and review of laboratory results Abnormal [facility] Test Performed by [facility], [address], [place], [place] [id number] [place], [place] [address]- [place] Glucose [Mass/Vol] 401 mg/dL High 70 - 100 mg/dL [facility] [place] Comment on above: Test performed by gl ucose meter. Results may be 10%-15% lower than serum/plasma values. (CLIA ID [id number]) Interpretation and review of laboratory results Abnormal [facility] Test Performed by [facility], [address], [address] [place]- [place] Glucose [Mass/Vol] 348 mg/dL High 70 - 100 mg/dL [facility] [place] Comment on above: Test performed by gl ucose meter. Results may be 10%-15% lower than serum/plasma values. (CLIA ID [id number]) Interpretation and review of laboratory results Abnormal [facility] [place] Test Performed by [facility], [address], [place], [place] [address] [facility] Glucose [Mass/Vol] 231 mg/dL High 70 - 100 mg/dL [facility] Comment on above: Test performed by gl ucose meter. Results may be 10%-15% lower than serum/plasma values. (CLIA ID [id number]) Interpretation and review of laboratory results Abnormal [place], [place] Test Performed by [facility], [address], [place], [place] [address] [place] XR ABDOMEN (KUB) (SINGLE AP VIEW)on 09-23-2020 [facility] Incoming Radiology Results From [facility] - 09/23/2020 11:02 AM EST Patient Name: WILL JACINTO ---Diagnostic Radiology--- Exam Date/Time 09/23/2020 10:26:17 EST Exam CR Abdomen AP Ordering Physician MD DAVID RICHARD H Accession Number [id number] CPT4 Codes 05251 () Reason For Exam ileus, improving Report [...] RISA Transcribed Date and Time: 09/23/2020 11:01 [place] Patient Name: WILL ALVARADO ---Diagnostic Radiology--- Exam Date/Time 09/23/2020 10:26:17 EST Exam CR Abdomen AP Ordering Physician MD DAVID RICHARD H Accession Number [id number] CPT4 Codes 71326 () Reason For Exam ileus, improving Report [...] Time: 09/23/2020 11:00 am Signed by: MD TIFFANY, JOEL Transcribed Date and Time: 09/23/2020 11:01 [place], [place] CBC Auto Differentialon 11- Absolute Baso # 0.1 10*3/uL 0 - 0.2 10*3/uL [place] Absolute Neut # 6.8 10*3/uL 1.8 - 7 10*3/uL [place], [place] Basophils/100 WBC (Bld) 0.9 % 0 - 2 % [place] Eosinophils (Bld) [#/Vol] 0.2 10*3/uL 0 - 0.5 10*3/uL [place] Eosinophils/100 WBC (Bld) 1.9 % 1 - 6 % [place] Erythrocyte distribution width (RBC) [Ratio] 14.9 % High 11.5 - 14.5 % [place] Granulocytes/100 WBC (Bld) 69.3 % 40 - 80 % [place] Hematocrit (Bld) [Volume fraction] 35.1 % 35 - 47 % [place] Hemoglobin (Bld) [Mass/Vol] 11.8 g/dL 11.7 - 16 g/dL [place] Interpretation and review of laboratory results Abnormal [place] Lymphocytes (Bld) [#/Vol] 1.8 10*3/uL 1 - 4.3 10*3/uL [place] Lymphocytes/100 WBC (Bld) 18.3 % Low 20 - 40 % [place] MCH (RBC) [Entitic mass] 29.0 pg 26 - 34 pg [place] MCHC (RBC) [Mass/Vol] 33.5 % 32 - 36 % [place] MCV (RBC) [Entitic vol] 86.4 fL 79 - 98 fL [place], [place] Monocytes (Bld) [#/Vol] 0.9 10*3/uL High 0 - 0.8 10*3/uL [place] Monocytes/100 WBC (Bld) 9.6 % 2 - 10 % [place] Platelet mean volume (Bld) [Entitic vol] 7.3 fL Low 7.4 - 10.4 fL [place] Platelets (Bld) [#/Vol] 474 10*3/uL High 140 - 440 10*3/uL [place] RBC (Bld) [#/Vol] 4.07 10*6/uL 3.8 - 5.2 10*6/uL [place] WBC (Bld) [#/Vol] 9.7 10*3/uL 3.6 - 10.7 10*3/uL [place] Test Performed by [facility], [address], [place], [place] [address] [place] Comprehensive Metabolic Pane gigi 09-22-2020 Albumin [Mass/Vol] 3.7 g/dL 3.5 - 5 g/dL [place] ALP [Catalytic activity/Vol] 125 U/L 38 - 126 U/L [place] ALT [Catalytic activity/Vol] 137 U/L High 0 - 34 U/L [place] Comment on above: The ALT test is perf ormed by an updated assay method. Please note that the reference intervals have been changed and are now sex specific. Anion gap [Moles/Vol] 5 mmol/L [place], [place] AST [Catalytic activity/Vol] 51 U/L High 15 - 46 U/L [place] Bilirubin Ql (U) 0.7 mg/dL 0.2 - 1.3 mg/dL [place] Calcium [Mass/Vol] 9.0 mg/dL 8.4 - 10. 4 mg/dL [place] Chloride [Moles/Vol] 94 mmol/L Low 98 - 10 7 mmol/L [place] CO2 [Moles/Vol] 29 mmol/L 22 - 30 mmol/L [place] Creatinine [Mass/Vol] 0.88 mg/dL 0.52 - 1.25 mg/dL [place] EGFR IF NonAfrican Vincentian 74.5 mL/min >60 [place] Comment on above: KDIGO guidelines pro [...] MDRD (S/P/Bld) [Vol rate/Area] 86.4 mL/min/{1.73_m2} >60 [facility] [place] Glucose [Mass/Vol] 269 mg/dL High 70 - 100 mg/dL [place] Interpretation and review of laboratory results Abnormal [facility] [place] Potassium [Moles/Vol] 4.1 mmol/L 3.5 - 5.1 mmol/L [place] Protein [Mass/Vol] 6.9 g/dL 6.3 - 8.2 g/dL [place] Sodium [Moles/Vol] 129 mmol/L Low 135 - 145 mmol/L [place] Urea nitrogen [Mass/Vol] 21 mg/dL High 7 - 20 mg/dL [place] Test Performed by [facility], [address] [place], [place] [id number] [place] [address] POCT Glucoseon 09-22-2020 Glucose [Mass/Vol] 363 mg/dL High 70 - 100 mg/dL [place] Comment on above: Test performed by ucose meter. Results may be 10%-15% lower than serum/plasma values. (CLIA ID [id number]) Interpretation and review of laboratory results Abnormal [facility] registracija vozila Test Performed by [facility], [address] [place], [place] [address] [place] Glucose [Mass/Vol] 355 mg/dL High 70 - 100 mg/dL [facility] [place] Comment on above: Test performed by gl ucose meter. Results may be 10%-15% lower than serum/plasma values. (CLIA ID [id number]) Interpretation and review of laboratory results Abnormal [facility] [place] Test Performed by [facility], [address] [place] [address] [facility] Glucose [Mass/Vol] 328 mg/dL High 70 - 100 mg/dL [facility] [place] Comment on above: Test performed by gl ucose meter. Results may be 10%-15% lower than serum/plasma values. (CLIA ID [id number]) Interpretation and review of laboratory results Abnormal [facility] [place] Test Performed by [facility], [address], [place], [place] [address] [facility] [place] Glucose [Mass/Vol] 277 mg/dL High 70 - 100 mg/dL [facility] [place] Comment on above: Test performed by gl ucose meter. Results may be 10%-15% lower than serum/plasma values. (CLIA ID [id number]) Interpretation and review of laboratory results Abnormal [facility] [place] Test Performed by [facility], [address] [place], [place] [address] [facility] XR ABDOMEN (KUB) (SINGLE AP VIEW)on 09-22-2020 Patient Name: WILL ALVARADO ---Diagnostic Radiology--- Exam Date/Time 09/22/2020 07:41:53 EST Exam CR Abdomen AP Ordering Physician MD JOANN, KYLAH Garcia Accession Number [id number] CPT4 Codes 15897 () Reason For Exam ileus Report ABDOMEN: [...] RACHEL Transcribed Date and Time: 09/22/2020 8:32 [employer] Nati Jones Incoming Radiology Results From [facility] - 09/22/2020 8:33 AM EST Patient Name: WILL JACINTO ---Diagnostic Radiology--- Exam Date/Time 09/22/2020 07:41:53 EST Exam CR Abdomen AP Ordering Physician MD JOANN, KYLAH Garcia Accession Number [id number] CPT4 Codes 10967 () Reason For Exam ileus Report ABDOMEN: [...] RACHEL Transcribed Date and Time: 09/22/2020 8:32 [employer] GLUCOSEon 09-21-2020 Glucose [Mass/Vol] 461 mg/dL Critically high 70 - 1 00 mg/dL [email or web address] Interpretation and review of laboratory results Abnormal [employer] Test Performed by [facility], [address] [place], [place] [address] [facility] POCT Glucoseon 09-21-2020 Glucose [Mass/Vol] 446 mg/dL High 70 - 100 mg/dL [facility] Comment on above: Test performed by ucose meter. Results may be 10%-15% lower than serum/plasma values. (CLIA ID [id number]) Interpretation and review of laboratory results Abnormal [employer] Test Performed by [facility], [address], [place], [place] [address] [place] Glucose [Mass/Vol] 440 mg/dL High 70 - 100 mg/dL [place], [place] Comment on above: Test performed by gl ucose meter. Results may be 10%-15% lower than serum/plasma values. (CLIA ID [id number]) Interpretation and review of laboratory results Abnormal [place] Test Performed by [facility], [address], [place], [place] [address] [place] Glucose [Mass/Vol] 138 mg/dL High 70 - 100 mg/dL [place] Comment on above: Test performed by gl ucose meter. Results may be 10%-15% lower than serum/plasma values. (CLIA ID [id number]) Interpretation and review of laboratory results Abnormal [facility] [place] Test Performed by [facility], [address], [place], [place] [id number] [place] [address] Basic Metabolic Panelon 11-1 Anion gap [Moles/Vol] 6 mmol/L [place] Calcium [Mass/Vol] 8.7 mg/dL 8.4 - 10. 4 mg/dL [place] Chloride [Moles/Vol] 101 mmol/L 98 - 10 7 mmol/L [place] CO2 [Moles/Vol] 27 mmol/L 22 - 30 mmol/L [place] Creatinine [Mass/Vol] 0.81 mg/dL 0.52 - 1.25 mg/dL [place] EGFR IF NonAfrican Vincentian 82.4 mL/min >60 [place] Comment on above: KDIGO guidelines pro [...] MDRD (S/P/Bld) [Vol rate/Area] mL/min/{1.73_m2} >60 mL/min [facility] [place] Glucose [Mass/Vol] 259 mg/dL High 70 - 100 mg/dL [facility], [place] Interpretation and review of laboratory results Abnormal [facility] [employer], [place] Potassium [Moles/Vol] 4.5 mmol/L 3.5 - 5.1 mmol/L [facility], [place] Sodium [Moles/Vol] 134 mmol/L Low 135 - 145 mmol/L [facility] [employer] [place] Urea nitrogen [Mass/Vol] 22 mg/dL High 7 - 20 mg/dL [facility] [place] Test Performed by [facility], [address] [place], [place] [address] [place] [address] [employer] [place] POCT Glucoseon 09-20-2020 Glucose [Mass/Vol] 129 mg/dL High 70 - 100 mg/dL [facility] [place] Comment on above: Test performed by gl ucose meter. Results may be 10%-15% lower than serum/plasma values. (CLIA ID [id number]) Interpretation and review of laboratory results Abnormal [employer] [place], [place] Test Performed by [facility] [facility], [address], [place], [place] [address] [facility] [place], registracija vozila Glucose [Mass/Vol] 192 mg/dL High 70 - 100 mg/dL [facility] [place] Comment on above: Test performed by gl ucose meter. Results may be 10%-15% lower than serum/plasma values. (CLIA ID [id number]) Interpretation and review of laboratory results Abnormal [employer] [place], [place] Test Performed by [facility], [address] [place] [address] [facility] [place] Glucose [Mass/Vol] 352 mg/dL High 70 - 100 mg/dL [employer] Comment on above: Test performed by gl ucose meter. Results may be 10%-15% lower than serum/plasma values. (CLIA ID [id number]) Interpretation and review of laboratory results Abnormal [employer] Test Performed by [facility] [place] [facility], [address], [place], [place] [address] [facility] MARYAM Glucose [Mass/Vol] 283 mg/dL High 70 - 100 mg/dL [facility] Comment on above: Test performed by gl ucose meter. Results may be 10%-15% lower than serum/plasma values. (CLIA ID [id number]) Interpretation and review of laboratory results Abnormal [employer] Test Performed by [facility], [address], [place], [place] [address] [facility] XR ABDOMEN (KUB) (SINGLE AP VIEW)on 09-20-2020 [facility] Incoming Radiology Results From [facility] - 09/20/2020 10:48 AM EST Patient Name: WILL JACINTO ---Diagnostic Radiology--- Exam Date/Time 09/20/2020 08:59:00 EST Exam CR Abdomen AP Ordering Physician DO HILL LISA Accession Number [id number] CPT4 Codes 21895 () Reason For Exam ileus Report EXAMINATION: [...] NELSON Transcribed Date and Time: 09/20/2020 10:48 [employer] Patient Name: WILL ALVARADO ---Diagnostic Radiology--- Exam Date/Time 09/20/2020 08:59:00 EST Exam CR Abdomen AP Ordering Physician DO HILL LISA Accession Number [id number] CPT4 Codes 74244 () Reason For Exam ileus Report EXAMINATION: [...] NELSON Transcribed Date and Time: 09/20/2020 10:48 [place] CBC Auto Differentialon 09-08 Erythrocyte distribution width (RBC) [Ratio] 15.3 % High 11.5 - 14.5 % [place] Hematocrit (Bld) [Volume fraction] 32.5 % Low 35 - 47 % [place] Hemoglobin (Bld) [Mass/Vol] 10.6 g/dL Low 11.7 - 16 g/dL [place] Interpretation and review of laboratory results Abnormal [place] MCH (RBC) [Entitic mass] 29.0 pg 26 - 34 pg [place] MCHC (RBC) [Mass/Vol] 32.7 % 32 - 36 % [place] MCV (RBC) [Entitic vol] 88.7 fL 79 - 98 fL [place], [place] Platelet mean volume (Bld) [Entitic vol] 7.3 fL Low 7.4 - 10.4 fL [place] Platelets (Bld) [#/Vol] 519 10*3/uL High 140 - 440 10*3/uL [place] RBC (Bld) [#/Vol] 3.67 10*6/uL Low 3.8 - 5.2 10*6/uL [place] WBC (Bld) [#/Vol] 8.5 10*3/uL 3.6 - 10.7 10*3/uL [place] Test Performed by [facility], [address], [place], [place] [address] [place] Comprehensive Metabolic Pane gigi 09-19-2020 Albumin [Mass/Vol] 3.6 g/dL 3.5 - 5 g/dL [place] ALP [Catalytic activity/Vol] 128 U/L High 38 - 126 U/L [place] ALT [Catalytic activity/Vol] 125 U/L High 0 - 34 U/L [place] Comment on above: The ALT test is perf ormed by an updated assay method. Please note that the reference intervals have been changed and are now sex specific. Anion gap [Moles/Vol] 7 mmol/L [place], [place] AST [Catalytic activity/Vol] 68 U/L High 15 - 46 U/L [place] Bilirubin Ql (U) 0.6 mg/dL 0.2 - 1.3 mg/dL [place] Calcium [Mass/Vol] 8.9 mg/dL 8.4 - 10. 4 mg/dL [place] Chloride [Moles/Vol] 99 mmol/L 98 - 10 7 mmol/L [place] CO2 [Moles/Vol] 25 mmol/L 22 - 30 mmol/L [place] Creatinine [Mass/Vol] 0.88 mg/dL 0.52 - 1.25 mg/dL [place] EGFR IF NonAfrican Vincentian 74.5 mL/min >60 [place] Comment on above: KDIGO guidelines pro [...] MDRD (S/P/Bld) [Vol rate/Area] 86.4 mL/min/{1.73_m2} >60 [facility], [place] Glucose [Mass/Vol] 395 mg/dL High 70 - 100 mg/dL [facility], [place] Interpretation and review of laboratory results Abnormal [facility] Potassium [Moles/Vol] 5.8 mmol/L High 3.5 - 5.1 mmol/L [facility], [place] Protein [Mass/Vol] 7.2 g/dL 6.3 - 8.2 g/dL [facility], [place] Sodium [Moles/Vol] 131 mmol/L Low 135 - 145 mmol/L [facility], [place] Urea nitrogen [Mass/Vol] 29 mg/dL High 7 - 20 mg/dL [facility], [place] Test Performed by [facility], [address], [place], [place] [address] [facility], [place] Manual Differentialon 2019 Absolute Baso # 0.0 10*3/uL 0 - 0.2 10*3/uL [facility], [place] Absolute Eos # 0.1 10*3/uL 0 - 0.5 10*3/uL [facility], [place] Absolute Lymph # 0.9 10*3/uL Low 1.1 - 4.5 10*3/uL [facility], [place] Absolute [place] # 0.6 10*3/uL 0.2 - 1.1 10*3/uL [facility], [place] Absolute Neut # 6.5 10*3/uL 2.2 - 8.2 10*3/uL [facility], [place] Anisocytosis Ql (Bld) Slight [facility] [place], [place] Bands 1 % 0 - 3 % [facility] [place] Basophils 0 % 0 - 2 % [facility] [place] Eosinophils 1 % 1 - 6 % [facility] [place] Hypochromia Slight [facility], [place] Interpretation and review of laboratory results Abnormal [facility] [place] Lymphocytes 11 % Low 20 - 40 % [facility] Metamyelocytes 4 % Abnormal <1 [facility] Monocytes 7 % 2 - 10 % [facility] Polychromasia Slight [facility]- [place] RBC morphology finding Nom (Bld) ABNORMAL [facility]- [place] Seg Neutrophils 76 % 40 - 80 % [facility] TOTAL CELLS COUNTED 100 [facility] [place] Test Performed by [facility], [address], [place], [place] [address] [place] [address] [place] Otheron 09-19-2020 Interpretation and review of laboratory results Abnormal [facility] [place]- [place] Test Performed by [facility], [address], [address]- [place] POCT Glucoseon 09-19-2020 Glucose [Mass/Vol] 286 mg/dL High 70 - 100 mg/dL [facility], [place] Comment on above: Test performed by gl ucose meter. Results may be 10%-15% lower than serum/plasma values. (CLIA ID [id number]) Interpretation and review of laboratory results Abnormal [facility] rocket staff- [place] Test Performed by [employer] [facility], [address], [place], [place] [id number] [place] [address] rocket staff- [place], [place] Glucose [Mass/Vol] 395 mg/dL High 70 - 100 mg/dL [facility]- [place], [place] Comment on above: Test performed by gl ucose meter. Results may be 10%-15% lower than serum/plasma values. (CLIA ID [id number]) Interpretation and review of laboratory results Abnormal [facility] [employer] [place], [place] Test Performed by [employer] [facility], [address], [place], [place] [id number] [place] [address]- [place], [place] Glucose [Mass/Vol] 406 mg/dL High 70 - 100 mg/dL [facility]- [place] Comment on above: Test performed by gl ucose meter. Results may be 10%-15% lower than serum/plasma values. (CLIA ID [id number]) Glucose [Mass/Vol] 412 mg/dL High 70 - 100 mg/dL [facility]- [place] Comment on above: Test performed by gl ucose meter. Results may be 10%-15% lower than serum/plasma values. (CLIA ID [id number]) XR ABDOMEN (KUB) (SINGLE AP VIEW)on 09-19-2020 [facility] Incoming Radiology Results From [facility] - 09/19/2020 1:20 PM EST Patient Name: WILL JACINTO ---Diagnostic Radiology--- Exam Date/Time 09/19/2020 12:13:39 EST Exam CR Abdomen AP Ordering Physician MD DAVID RICHARD H Accession Number [id number] CPT4 Codes 60675 () Reason For Exam ileus fu Report [...] KRIKOR Transcribed Date and Time: 09/19/2020 1:20 [place], [place] Patient Name: WILL ALVARADO ---Diagnostic Radiology--- Exam Date/Time 09/19/2020 12:13:39 EST Exam CR Abdomen AP Ordering Physician MD DAVID RICHARD H Accession Number [id number] CPT4 Codes 17744 () Reason For Exam ileus fu Report [...] KRIKOR Transcribed Date and Time: 09/19/2020 1:20 [place], [place] Basic Metabolic Panelon 11 Anion gap [Moles/Vol] 10 mmol/L [place] Calcium [Mass/Vol] 9.0 mg/dL 8.4 - 10. 4 mg/dL [place] Chloride [Moles/Vol] 99 mmol/L 98 - 10 7 mmol/L [place] CO2 [Moles/Vol] 25 mmol/L 22 - 30 mmol/L [place] Creatinine [Mass/Vol] 0.99 mg/dL 0.52 - 1.25 mg/dL [place] EGFR IF NonAfrican Vincentian 64.6 mL/min >60 [place] Comment on above: KDIGO guidelines pro [...] MDRD (S/P/Bld) [Vol rate/Area] 74.9 mL/min/{1.73_m2} >60 [place] Glucose [Mass/Vol] 310 mg/dL High 70 - 100 mg/dL [place] Interpretation and review of laboratory results Abnormal [place] Potassium [Moles/Vol] 5.3 mmol/L High 3.5 - 5.1 mmol/L [place] Sodium [Moles/Vol] 134 mmol/L Low 135 - 145 mmol/L [place] Urea nitrogen [Mass/Vol] 35 mg/dL High 7 - 20 mg/dL [place] Test Performed by [facility], [address], [place], [place] [address] [place] Comprehensive Metabolic Pane l w/ Reflex to MGon 09-18-2020 Albumin [Mass/Vol] 3.9 g/dL 3.5 - 5 g/dL [place] ALP [Catalytic activity/Vol] 133 U/L High 38 - 126 U/L [place] ALT [Catalytic activity/Vol] 104 U/L High 0 - 34 U/L [place] Comment on above: The ALT test is perf ormed by an updated assay method. Please note that the reference intervals have been changed and are now sex specific. Anion gap [Moles/Vol] 8 mmol/L [place] AST [Catalytic activity/Vol] 74 U/L High 15 - 46 U/L [place] Bilirubin Ql (U) 0.8 mg/dL 0.2 - 1.3 mg/dL [place] Calcium [Mass/Vol] 9.2 mg/dL 8.4 - 10. 4 mg/dL [place] Chloride [Moles/Vol] 104 mmol/L 98 - 10 7 mmol/L [place] CO2 [Moles/Vol] 26 mmol/L 22 - 30 mmol/L [place] Creatinine [Mass/Vol] 0.97 mg/dL 0.52 - 1.25 mg/dL [place] EGFR IF NonAfrican Vincentian 66.3 mL/min >60 [place] Comment on above: KDIGO guidelines pro [...] MDRD (S/P/Bld) [Vol rate/Area] 76.8 mL/min/{1.73_m2} >60 [place] Glucose [Mass/Vol] 175 mg/dL High 70 - 100 mg/dL [place] Interpretation and review of laboratory results Abnormal [place] Potassium [Moles/Vol] 5.5 mmol/L High 3.5 - 5.1 mmol/L [place] Protein [Mass/Vol] 7.8 g/dL 6.3 - 8.2 g/dL [place] Sodium [Moles/Vol] 138 mmol/L 135 - 145 mmol/L [place] Urea nitrogen [Mass/Vol] 40 mg/dL High 7 - 20 mg/dL [place] Test Performed by [facility], [address], [place], [place] [address] [place] EKG 12 Lead - Chest Painon 1 11-18-2019 Robert [facility] Incoming Cardiology Results From Marla/Jeanne - 09/18/2020 4:47 PM EST [facility] Test Date: 2020-09-17 Pat Name: Will Jacinto Department: Room: 268 Gender: F Charge Account Clerk: CHELO : 1965 Requested By: ART ZENG Order Number: [id number] Reading MD: Justin Ramirez Measurements Intervals [place] Rate: 82 P: 37 IN: 172 QRS: -39 QRSD: 110 T: 26 QT: 376 QTc: 439 Interpretive Statements SINUS RHYTHM NONSPECIFIC IVCD WITH LAD LEFT VENTRICULAR HYPERTROPHY Compared to ECG 06/24/2018 21:26:56 Intraventricular conduction delay now present Electronically Signed On 09-18-2020 16:46:18 EST by Justin Ramirez [employer] [facility] Test Date: 2020-09-17 Pat Name: Will Jacinto Department: 01 Room: [facility] Gender: F Charge Account Clerk: CHELO : 1965 Requested By: ART ZENG Order Number: [id number] Reading MD: Justin Ramirez Measurements Intervals [place] Rate: 82 P: 37 IN: 172 QRS: -39 QRSD: 110 T: 26 QT: 376 QTc: 439 Interpretive Statements SINUS RHYTHM NONSPECIFIC IVCD WITH LAD LEFT VENTRICULAR HYPERTROPHY Compared to ECG 06/24/2018 21:26:56 Intraventricular conduction delay now present Electronically Signed On 09-18-2020 16:46:18 EST by Justin Ramirez [employer] POCT Glucoseon 09-18-2020 Glucose [Mass/Vol] 378 mg/dL High 70 - 100 mg/dL [employer] Comment on above: Test performed by gl ucose meter. Results may be 10%-15% lower than serum/plasma values. (CLIA ID [id number]) Interpretation and review of laboratory results Abnormal [employer] Test Performed by [employer] [address] [place] [address] [employer] Glucose [Mass/Vol] 349 mg/dL High 70 - 100 mg/dL [employer] Comment on above: Test performed by gl ucose meter. Results may be 10%-15% lower than serum/plasma values. (CLIA ID [id number]) Interpretation and review of laboratory results Abnormal [employer] Test Performed by [employer] [address] [place] [address] [employer] Glucose [Mass/Vol] 341 mg/dL High 70 - 100 mg/dL [facility] [place] Comment on above: Test performed by gl ucose meter. Results may be 10%-15% lower than serum/plasma values. (CLIA ID [id number]) Interpretation and review of laboratory results Abnormal [facility] Test Performed by [facility] [employer] [address] [place] [address] [facility] Glucose [Mass/Vol] 312 mg/dL High 70 - 100 mg/dL [facility] [place] Comment on above: Test performed by gl ucose meter. Results may be 10%-15% lower than serum/plasma values. (CLIA ID [id number]) Interpretation and review of laboratory results Abnormal [facility] Test Performed by [employer] [address], [place], [place] [address] [facility] Glucose [Mass/Vol] 235 mg/dL High 70 - 100 mg/dL [facility] Comment on above: Test performed by gl ucose meter. Results may be 10%-15% lower than serum/plasma values. (CLIA ID [id number]) Interpretation and review of laboratory results Abnormal [facility] Test Performed by [employer] [address] [place], [place] [address] [employer] XR ABDOMEN (KUB) (SINGLE AP VIEW)on 09-18-2020 [facility] Incoming Radiology Results From [facility] - 09/18/2020 10:26 AM EST Patient Name: WILL JACINTO ---Diagnostic Radiology--- Exam Date/Time 09/18/2020 09:25:00 EST Exam CR Abdomen AP Ordering Physician DO HILL LISA Accession Number [id number] CPT4 Codes 11788 () Reason For Exam ileus Report Clinical [...] HARLAN Transcribed Date and Time: 09/18/2020 10:25 [place] Patient Name: WILL ALVARADO ---Diagnostic Radiology--- Exam Date/Time 09/18/2020 09:25:00 EST Exam CR Abdomen AP Ordering Physician DO HILL LISA Accession Number [id number] CPT4 Codes 30687 () Reason For Exam ileus Report Clinical [...] HARLAN Transcribed Date and Time: 09/18/2020 10:25 [place] CT Abdomen Pelvis W Contrast on 09-17-2020 [facility] Incoming Radiology Results From [facility] - 09/17/2020 10:32 PM EST Patient Name: WILL JACINTO ---CT--- Exam Date/Time 09/17/2020 22:15:[address] Abdomen/Pelvis w/ IV Contrast (IV Onl Ordering Physician [id number] -ART ZENG Accession Number [id number] CPT4 Codes 94532 (CT Abdomen/Pelvis w/ IV Contrast (IV Onl), Q9967 (CT ISOVUE 370MG/ML&[id number]&ML& 1) Reason For Exam abd pain/tenderness Report [...] on --- Final --- Dictating Physician: MD TRAM, JAVY Askew Signed Date and Time: 09/17/2020 10:30 pm Signed by: MD TRAM, JAVY Falk Date and Time: 09/17/2020 10:31 [place], [place] Patient Name: WILL ALVARADO ---CT--- Exam Date/Time 09/17/2020 22:15:[address] Abdomen/Pelvis w/ IV Contrast (IV Onl Ordering Physician ART OWEN Accession Number [id number] CPT4 Codes 59225 (CT Abdomen/Pelvis w/ IV Contrast (IV Onl), Q9967 (CT ISOVUE 370MG/ML&[id number]&ML& 1) Reason For Exam abd pain/tenderness Report [...] R Transcribed Date and Time: 09/17/2020 10:31 [place] Comprehensive Metabolic Pane gigi 09-17-2020 Albumin [Mass/Vol] 4.2 g/dL 3.5 - 5 g/dL [place] ALP [Catalytic activity/Vol] 153 U/L High 38 - 126 U/L [place] ALT [Catalytic activity/Vol] 104 U/L High 0 - 34 U/L [place] Comment on above: The ALT test is perf ormed by an updated assay method. Please note that the reference intervals have been changed and are now sex specific. Anion gap [Moles/Vol] 6 mmol/L [place], [place] AST [Catalytic activity/Vol] 69 U/L High 15 - 46 U/L [place] Bilirubin Ql (U) 0.5 mg/dL 0.2 - 1.3 mg/dL [place] Calcium [Mass/Vol] 10.3 mg/dL 8.4 - 10. 4 mg/dL [place] Chloride [Moles/Vol] 101 mmol/L 98 - 10 7 mmol/L [place] CO2 [Moles/Vol] 29 mmol/L 22 - 30 mmol/L [place] Creatinine [Mass/Vol] 1.09 mg/dL 0.52 - 1.25 mg/dL [place], [place] EGFR IF NonAfrican Vincentian 57.5 mL/min Abnormal >60 [place], [place] Comment on above: KDIGO guidelines pro [...] MDRD (S/P/Bld) [Vol rate/Area] 66.7 mL/min/{1.73_m2} >60 [place] Glucose [Mass/Vol] 122 mg/dL High 70 - 100 mg/dL [place] Interpretation and review of laboratory results Abnormal [place] Potassium [Moles/Vol] 5.7 mmol/L High 3.5 - 5.1 mmol/L [place] Protein [Mass/Vol] 7.9 g/dL 6.3 - 8.2 g/dL [place] Sodium [Moles/Vol] 137 mmol/L 135 - 145 mmol/L [place] Urea nitrogen [Mass/Vol] 48 mg/dL High 7 - 20 mg/dL [place] Hemogram (CBC) w/Auto Diffon 09-17-2020 Erythrocyte distribution width (RBC) [Ratio] 14.9 % High 11.5 - 14.5 % [place] Hematocrit (Bld) [Volume fraction] 33.9 % Low 35 - 47 % [place] Hemoglobin (Bld) [Mass/Vol] 11.4 g/dL Low 11.7 - 16 g/dL [place] Interpretation and review of laboratory results Abnormal [place], [place] MCH (RBC) [Entitic mass] 29.6 pg 26 - 34 pg [place] MCHC (RBC) [Mass/Vol] 33.7 % 32 - 36 % [place] MCV (RBC) [Entitic vol] 87.8 fL 79 - 98 fL M [place], [place] Platelet mean volume (Bld) [Entitic vol] 7.5 fL 7.4 - 10.4 fL [place], [place] Platelets (Bld) [#/Vol] 544 10*3/uL High 140 - 440 10*3/uL [facility] [place] RBC (Bld) [#/Vol] 3.87 10*6/uL 3.8 - 5.2 10*6/uL [facility] [place] WBC (Bld) [#/Vol] 11.0 10*3/uL High 3.6 - 10.7 10*3/uL [facility] [place] Test Performed by [facility], [address], [place], [place] [address] [facility] [place] Lipaseon 09-17-2020 Lipase [Catalytic activity/Vol] 39 U/L 23 - 300 U/L [facility] [place] Manual Differentialon 2019 Absolute Baso # 0.0 10*3/uL 0 - 0.2 10*3/uL [facility] Absolute Eos # 0.0 10*3/uL 0 - 0.5 10*3/uL [facility] Absolute Lymph # 0.8 10*3/uL Low 1.1 - 4.5 10*3/uL [facility] [place] Absolute [place] # 0.8 10*3/uL 0.2 - 1.1 10*3/uL [facility] [place] Absolute Neut # 9.4 10*3/uL High 2.2 - 8.2 10*3/uL [facility] [place] Bands 1 % 0 - 3 % [facility] [place] Basophils 0 % 0 - 2 % [facility] [place] Eosinophils 0 % Low 1 - 6 % [facility] [place] Interpretation and review of laboratory results Abnormal [facility] Lymphocytes 7 % Low 20 - 40 % [facility] [place] Monocytes 7 % 2 - 10 % [facility] [place] Myelocytes 1 % Abnormal <1 [facility] [place] Polychromasia Slight [facility] RBC morphology finding Nom (Bld) ABNORMAL [facility] Seg Neutrophils 84 % High 40 - 80 % [facility] TOTAL CELLS COUNTED 100 [facility] [place] Test Performed by [facility], [address], [place], [place] [address] [facility] Otheron 09-17-2020 Test Performed by [facility], [address], [place], [place] [id number] [place] [address] POCT Glucoseon 09-17-2020 Glucose [Mass/Vol] 124 mg/dL High 70 - 100 mg/dL [place], [place] Comment on above: Test performed by ucose meter. Results may be 10%-15% lower than serum/plasma values. (CLIA ID [id number]) Interpretation and review of laboratory results Abnormal [place] Test Performed by [facility], [address], [place], [place] [id number] [place] [address] Troponin x1on 09-17-2020 Troponin I.cardiac [Mass/Vol] ng/mL 0 - 0.034 ng/mL [place], [place] Comment on above: . Test Performed by [facility], [address], [address] Urinalysison 09-17-2020 Appearance (U) Clear Clear [place] Comment on above: . Bilirubin Urine Negative Negative mg/dL [place], [place] Comment on above: . Color (U) Yellow Lt. Yellow NA [place], [place] Comment on above: . Glucose, Ur Normal Normal (<70) mg/dL [place], [place] Comment on above: . Interpretation and review of laboratory results Abnormal [place] Ketones Ql (U) Trace Abnormal Negative mg/dL [place], [place] Comment on above: . LEUKOCYTES, UA 25 Abnormal Negative Kat/uL [place], [place] Comment on above: . Mucous Threads Few Negative /[LPF] [place] Comment on above: . Nitrite, Urine Negative Negative NA [place] Comment on above: . Occult Blood,Urine 1.0 mg/dL Abnormal Negative [place] Comment on above: . pH (U) 5.5 [pH] [place] Comment on above: . Protein (U) [Mass/Vol] 10 mg/dL Abnormal Negative [place], [place] Comment on above: . RBC (U) [#/Vol] 51-100 Abnormal 0 - 2 /[HPF] [place] Comment on above: . Specific [place], Urine 1.021 M [place] Comment on above: . Squam Epithel, UA 0-2 3 - 5 /[HPF] [place] Comment on above: . Urobilinogen, Urine Normal Normal (0-1) mg/dL [place], [place] Comment on above: . WBC, UA 0-2 0 - 5 /[HPF] [place] Comment on above: . Test Performed by [facility], [address], [place], [place] [address] [place] Basic Metabolic Panelon -2 Calcium [Mass/Vol] 9.9 mg/dL Normal 8.4-10.4 [facility] Comment on above: Performed By: #### B GLU #### [facility] [address] [place], [place] Glucose [Mass/Vol] 404 mg/dL High 70-100 [facility] Comment on above: Performed By: #### B GLU #### [facility] [address], [place] Anion gap [Moles/Vol] 13 Normal [facility] Comment on above: Performed By: #### B GLU #### [facility] [address], [place] CO2 [Moles/Vol] 28 mmol/L Normal 22-30 [facility] Comment on above: Performed By: #### B GLU #### [facility] [address], [place] Creatinine [Mass/Vol] 0.95 mg/dL Normal 0.52-1.25 [facility] Comment on above: Performed By: #### B GLU #### [facility] [address], [place] GFR/1.73 sq M predicted among blacks MDRD (S/P/Bld) [Vol rate/Area] mL/min/{1.73_m2} Normal >60 [facility] Comment on above: Performed By: #### B GLU #### [facility] [address], [place] GFR/1.73 sq M predicted among non-blacks MDRD (S/P/Bld) [Vol rate/Area] mL/min/{1.73_m2} Normal >60 [facility] Comment on above: Result Comment: Sour ce- MDRD equation with creatinine calibration to IDMS(NKDEP) eGFR not recommended for drug dose adjustment Performed By: #### B GLU #### [facility] [address] [place] [address] Urea nitrogen [Mass/Vol] 23 mg/dL High 7-20 [facility] Comment on above: Performed By: #### B GLU #### [facility] [address] [place] [address] Chloride [Moles/Vol] 94 mmol/L Low 98-107 [facility] Comment on above: Performed By: #### B GLU #### [facility] [address], [place] Potassium [Moles/Vol] 4.8 mmol/L Normal 3.5-5.1 [facility] Comment on above: Performed By: #### B GLU #### [facility] [address] [place] [address] Sodium [Moles/Vol] 135 mmol/L Normal 135-145 [facility] Comment on above: Performed By: #### B GLU #### [facility] [address], [place] Basic Metabolic Panel w/ Ref kaye to MGon 01-02-2020 Anion gap [Moles/Vol] 13 mmol/L [place], [place] Calcium [Mass/Vol] 9.9 mg/dL 8.4 - 10. 4 mg/dL [place] Chloride [Moles/Vol] 94 mmol/L Low 98 - 10 7 mmol/L [place] CO2 [Moles/Vol] 28 mmol/L 22 - 30 mmol/L [place] Creatinine [Mass/Vol] 0.95 mg/dL 0.52 - 1.25 mg/dL [place] EGFR IF NonAfrican Vincentian >60.0 >60 mL/min [place] Comment on above: Source- MDRD equatio n with creatinine calibration to IDMS(NKDEP) eGFR not recommended for drug dose adjustment GFR/1.73 sq M predicted among blacks MDRD (S/P/Bld) [Vol rate/Area] mL/min/{1.73_m2} >60 mL/min [place] Glucose [Mass/Vol] 404 mg/dL High 70 - 100 mg/dL [place] Interpretation and review of laboratory results Abnormal [place] Potassium [Moles/Vol] 4.8 mmol/L 3.5 - 5.1 mmol/L [place] Sodium [Moles/Vol] 135 mmol/L 135 - 145 mmol/L [place], [place] Urea nitrogen [Mass/Vol] 23 mg/dL High 7 - 20 mg/dL [place] Test Performed by [facility], [address] [place] [address] [place] Hemoglobin AND Hematocriton 01-02-2020 Hematocrit (Bld) [Volume fraction] 40.5 % Normal 35.0-47.0 [facility] Comment on above: Performed By: #### B GLU #### [facility] [address] [place] [address] Hemoglobin (Bld) [Mass/Vol] 13.5 g/dL Normal 11.7-16.0 [facility] Comment on above: Performed By: #### B GLU #### [facility] [address] [place] [address] Hemoglobin and Hematocrit, B loodon 01-02-2020 Hematocrit (Bld) [Volume fraction] 40.5 % 35 - 47 % [place] Hemoglobin (Bld) [Mass/Vol] 13.5 g/dL 11.7 - 16 g/dL [place] Test Performed by [facility], [address] [place] [id number] [place] [address] Add On Lab Teston 06-27-2019 Sodium [Moles/Vol] Accepted [place], [place] Comment on above: Specimen available & acceptable for analysis. Test Performed by [facility], [address], [place], [place] [address] [place] [address] C-Reactive Proteinon 019 CRP [Mass/Vol] 45.5 mg/L High 0 - 6 mg/L [place], [place] Comment on above: . Interpretation and review of laboratory results Abnormal [place] Test Performed by [facility], [address], [place], [place] [address] [place], [place] Sedimentation Rateon 019 Interpretation and review of laboratory results Abnormal [place], [place] Sed Rate 130 mm/h High 0 - 20 mm/h [place] Test Performed by [facility], [address], [place], [place] [address] [place] Comprehensive Metabolic Pane gigi 06-26-2019 Albumin [Mass/Vol] 3.6 g/dL 3.5 - 5 g/dL [place] ALP [Catalytic activity/Vol] 165 U/L High 38 - 126 U/L [place] ALT [Catalytic activity/Vol] 37 U/L 13 - 69 U/L [place] Anion gap [Moles/Vol] 9 mmol/L [place], [place] AST [Catalytic activity/Vol] 21 U/L 15 - 46 U/L [place] Bilirubin Ql (U) 0.5 mg/dL 0.2 - 1.3 mg/dL [place] Calcium [Mass/Vol] 8.8 mg/dL 8.4 - 10. 4 mg/dL [place] Chloride [Moles/Vol] 102 mmol/L 98 - 10 7 mmol/L [place] CO2 [Moles/Vol] 26 mmol/L 22 - 30 mmol/L [place] Creatinine [Mass/Vol] 1.06 mg/dL 0.52 - 1.25 mg/dL [place] EGFR IF NonAfrican Vincentian 54.3 mL/min >60 [place] Comment on above: Source- MDRD equatio n with creatinine calibration to IDMS(NKDEP) eGFR not recommended for drug dose adjustment GFR/1.73 sq M predicted among blacks MDRD (S/P/Bld) [Vol rate/Area] mL/min/{1.73_m2} >60 mL/min [place] Glucose [Mass/Vol] 156 mg/dL High 70 - 100 mg/dL [place] Interpretation and review of laboratory results Abnormal [place] Potassium [Moles/Vol] 4.5 mmol/L 3.5 - 5.1 mmol/L [place] Protein [Mass/Vol] 6.9 g/dL 6.3 - 8.2 g/dL [place] Sodium [Moles/Vol] 137 mmol/L 135 - 145 mmol/L [place] Urea nitrogen [Mass/Vol] 28 mg/dL High 7 - 20 mg/dL [place] Test Performed by [facility], [address] [place] [address] Str. [place], [place] [id number] [place] [address] Hemogram (CBC) w/Auto Diffon 06-26-2019 Absolute Baso # 0.1 10*3/uL 0 - 0.2 10*3/uL [place] Absolute Neut # 5.3 10*3/uL 1.8 - 7 10*3/uL [place] Basophils/100 WBC (Bld) 0.7 % 0 - 2 % M [place] Eosinophils (Bld) [#/Vol] 0.2 10*3/uL 0 - 0.5 10*3/uL [place] Eosinophils/100 WBC (Bld) 2.0 % 1 - 6 % [place] Erythrocyte distribution width (RBC) [Ratio] 21.5 % High 11.5 - 14.5 % [place] Granulocytes/100 WBC (Bld) 65.6 % 40 - 80 % [place] Hematocrit (Bld) [Volume fraction] 22.8 % Low 35 - 47 % [place] Hemoglobin (Bld) [Mass/Vol] 7.3 g/dL Low 11.7 - 16 g/dL [place] Interpretation and review of laboratory results Abnormal [place] Lymphocytes (Bld) [#/Vol] 1.8 10*3/uL 1 - 4.3 10*3/uL [place] Lymphocytes/100 WBC (Bld) 21.6 % 20 - 40 % [place] MCH (RBC) [Entitic mass] 23.8 pg Low 26 - 34 pg [place] MCHC (RBC) [Mass/Vol] 32.0 % 32 - 36 % [place] MCV (RBC) [Entitic vol] 74.3 fL Low 79 - 98 fL [place], [place] Monocytes (Bld) [#/Vol] 0.8 10*3/uL 0 - 0.8 10*3/uL [place] Monocytes/100 WBC (Bld) 10.1 % High 2 - 10 % [place], [place] Platelet mean volume (Bld) [Entitic vol] 6.7 fL Low 7.4 - 10.4 fL [place] Platelets (Bld) [#/Vol] 540 10*3/uL High 140 - 440 10*3/uL [place] RBC (Bld) [#/Vol] 3.07 10*6/uL Low 3.8 - 5.2 10*6/uL [place] WBC (Bld) [#/Vol] 8.1 10*3/uL 3.6 - 10.7 10*3/uL [place] Test Performed by [facility], [address] [place], [place] [address] [place] [address] Lactic Acid, Plasmaon 2018 Lactate [Moles/Vol] 1.7 mmol/L 0.7 - 2 mmol/L [place] Test Performed by [facility], [address] [place], [place] [address] [place] Metabolic Panelon 06-26-2019 Sodium [Moles/Vol] Slight [place], [place] Otheron 06-26-2019 Test Performed by [facility], [address] [place], [place] [address] [place] RBC MORPHOLOGYon 06-26-2019 Anisocytosis Ql (Bld) Slight [place], [place] Basophilic stippling LM Ql (Bld) Slight [facility] RBC morphology finding Nom (Bld) ABNORMAL [facility], [place] Sodium [Moles/Vol] Moderate [facility], [place] TYPE AND SCREENon 06-26-2019 Sodium [Moles/Vol] Positive [facility] [place], [place] Comment on above: Test Performed by [facility], [address] [place], [place] [address] Sodium [Moles/Vol] Negative [facility] [place], [place] Comment on above: Test Performed by [facility], [address], [place], [place] [address] Sodium [Moles/Vol] O [facility], [place] XR FEMUR RIGHT (MIN 2 VIEWS) on 06-26-2019 Patient Name: WILL ALVARADO ---Diagnostic Radiology--- Exam Date/Time 06/26/2019 22:31:46 EDT Exam CR Femur 2+ Views Right n Ordering Physician KELLEY ELLIOTT TAYLOR Accession Number [id number] CPT4 Codes 17411 () Reason For Exam right AKA wound drainage, swelling, erythema and warmth Report RIGHT FEMUR TWO VIEWS CLINICAL INDICATION: right AKA wound drainage, swelling, erythema and warmth TECHNIQUE: Two views of the right femur. COMPARISON: 06/14/2019 FINDINGS: Status post recent [id number]-[id number] amputation. Overlying soft tissue swelling and skin boo. No obvious acute bone destruction. IMPRESSION: 1. Soft tissue swelling and skin boo overlie the operative site. No obvious bone destruction. Report Dictated on --- Final --- Dictating Physician: MD UGALDE JOHN R Signed Date and Time: 06/26/2019 10:34 pm Signed by: MD UGALDE JOHN R Transcribed Date and Time: 06/26/2019 10:35 [facility], [place], [place] Incoming Radiology Results From [facility] - 06/26/2019 10:36 PM EDT Patient Name: WILL JACINTO ---Diagnostic Radiology--- Exam Date/Time 06/26/2019 22:31:46 EDT Exam CR Femur 2+ Views Right n Ordering Physician KELLEY ELLIOTT TAYLOR Accession Number [id number] CPT4 Codes 26269 () Reason For Exam right AKA wound drainage, swelling, erythema and warmth Report RIGHT FEMUR TWO VIEWS CLINICAL INDICATION: right AKA wound drainage, swelling, erythema and warmth TECHNIQUE: Two views of the right femur. COMPARISON: 06/14/2019 FINDINGS: Status post recent [id number] amputation. Overlying soft tissue swelling and skin obo. No obvious acute bone destruction. IMPRESSION: 1. Soft tissue swelling and skin boo overlie the operative site. No obvious bone destruction. Report Dictated on --- Final --- Dictating Physician: MD UGALDE JOHN R Signed Date and Time: 06/26/2019 10:34 pm Signed by: MD UGALDE JOHN R Transcribed Date and Time: 06/26/2019 10:35 [place], [place] Comprehensive Metabolic Pane l w/ Reflex to MGon 06-20-2019 Albumin [Mass/Vol] 3.4 g/dL Low 3.5 - 5 g/dL [place] ALP [Catalytic activity/Vol] 124 U/L 38 - 126 U/L [place] ALT [Catalytic activity/Vol] 57 U/L 13 - 69 U/L [place] Anion gap [Moles/Vol] 7 mmol/L [place] AST [Catalytic activity/Vol] 62 U/L High 15 - 46 U/L [place] Bilirubin Ql (U) 0.4 mg/dL 0.2 - 1.3 mg/dL [place] Calcium [Mass/Vol] 8.9 mg/dL 8.4 - 10. 4 mg/dL [place] Chloride [Moles/Vol] 105 mmol/L 98 - 10 7 mmol/L [place] CO2 [Moles/Vol] 26 mmol/L 22 - 30 mmol/L [place] Creatinine [Mass/Vol] 1.18 mg/dL 0.52 - 1.25 mg/dL [place], [place] EGFR IF NonAfrican Vincentian 48.0 mL/min >60 [place], [place] Comment on above: Source- MDRD equatio n with creatinine calibration to IDMS(NKDEP) eGFR not recommended for drug dose adjustment GFR/1.73 sq M predicted among blacks MDRD (S/P/Bld) [Vol rate/Area] 58.1 mL/min/{1.73_m2} >60 [place], [place] Glucose [Mass/Vol] 85 mg/dL 70 - 100 mg/dL [place] Interpretation and review of laboratory results Abnormal [place], [place] Potassium [Moles/Vol] 4.6 mmol/L 3.5 - 5.1 mmol/L [place] Protein [Mass/Vol] 6.4 g/dL 6.3 - 8.2 g/dL [place] Sodium [Moles/Vol] 139 mmol/L 135 - 145 mmol/L [place], [place] Urea nitrogen [Mass/Vol] 30 mg/dL High 7 - 20 mg/dL [place] Test Performed by [id number] [place] [address] Culture, Aerobic Bacteria wi th Gram Staion 06-20-2019 Aerobic Culture Many CARBAPENEMASE GENE DETECTION BY PCR VIM gene DETECTED IMP gene Not Detected NDM gene Not Detected KPC gene Not Detected OXA48 gene Not Detected The targets listed above are genes that may confer resistance to the carbapenems. Methodology: Real-time PCR (VoltServer) [place], [place] Aerobic Culture Pseudomonas aeruginosa Abnormal [place], [place] Aerobic Culture Mixed enteric dorinda present. Abnormal [place] INR Coag (Bld) [Relative time] Moderate polymorphonuclear cells/lpf. Moderate gram positive cocci. Moderate gram negative bacilli. [place] Interpretation and review of laboratory results Abnormal [place] Test Performed by [address] [address] [place], [place] POCT Glucoseon 06-20-2019 Glucose [Mass/Vol] 206 mg/dL High 70 - 100 mg/dL [place], [place] Comment on above: Test performed by ucose meter. Results may be 10%-15% lower than serum/plasma values. (CLIA ID [id number]) Interpretation and review of laboratory results Abnormal [facility] [place], [place] Test Performed by [facility], [address] [place] [id number] [place] [address] Glucose [Mass/Vol] 200 mg/dL High 70 - 100 mg/dL [place], [place] Comment on above: Test performed by gl ucose meter. Results may be 10%-15% lower than serum/plasma values. (CLIA ID [id number]) Interpretation and review of laboratory results Abnormal [facility] [employer] [place], [place] Test Performed by [facility], [address] [place] [id number] [place] [address] Glucose [Mass/Vol] 189 mg/dL High 70 - 100 mg/dL [place], [place] Comment on above: Test performed by gl ucose meter. Results may be 10%-15% lower than serum/plasma values. (CLIA ID [id number]) Interpretation and review of laboratory results [facility] [place] [place] Test Performed by [facility], [address] [place] [address] Surgical Pathologyon 019 Sodium [Moles/Vol] SEE BELOW [place], [place] 1 [id number] [facility] PATHOLOGY AND LABORATORY MEDICINE [address] [place] [id number] FINAL SURGICAL PATHOLOGY REPORT NAME: WILL JACINTO : 1965 53 Y F BILLING NO.: [id number] LOCATION: [id number] PROCEDURE 06/16/2019 DATE: SURGEON: SERGIO PISANO M.D. RECEIVED 06/17/2019 DATE: ATTENDING: JAYESH JORDAN MD REPORT DATE: 06/20/2019 COPIES TO: DIAGNOSIS: LEG, RIGHT ABOVE THE KNEE AMPUTATION - SKIN WITH ULCERATION AND NECROTIZING ACUTE INFLAMMATION OF SOFT TISSUE OF THE FOOT. 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 MILD CALCIFIC ATHEROSCLEROSIS. IN/IN Signature> ALLEN JERRY M.D. CLINICAL INFORMATION: Not provided SPECIMEN: LEG AMPUTATION, NON-TRAUMATIC GROSS DESCRIPTION: "Right AKWarren" Received is a right above knee amputation specimen [...] characteristics determined by the clinical laboratories of [facility]. They have not been cleared by the [...] negativity on decalcified specimens. Professional Performing Location: [address] [address] [place] [address]. DEPARTMENT OF PATHOLOGY AND LABORATORY MEDICINE [place], [place] [address] [place], [place] Anaerobic Cultureon 06-19-20 19 Anaerobic Culture Many [place], [place] Anaerobic Culture Positive Abnormal [place] Interpretation and review of laboratory results Abnormal [place] Test Performed by [address] [address] [place] [address] [place] Comprehensive Metabolic Pane l w/ Reflex to MGon 06-19-2019 Albumin [Mass/Vol] 3.6 g/dL 3.5 - 5 g/dL [place] ALP [Catalytic activity/Vol] 126 U/L 38 - 126 U/L [place] ALT [Catalytic activity/Vol] 54 U/L 13 - 69 U/L [place] Anion gap [Moles/Vol] 10 mmol/L [place], [place] AST [Catalytic activity/Vol] 71 U/L High 15 - 46 U/L [place] Bilirubin Ql (U) 0.6 mg/dL 0.2 - 1.3 mg/dL [place] Calcium [Mass/Vol] 9.0 mg/dL 8.4 - 10. 4 mg/dL [place] Chloride [Moles/Vol] 101 mmol/L 98 - 10 7 mmol/L [place] CO2 [Moles/Vol] 24 mmol/L 22 - 30 mmol/L [place] Creatinine [Mass/Vol] 1.67 mg/dL High 0.52 - 1.25 mg/dL [place] EGFR IF NonAfrican Vincentian 32.1 mL/min >60 [place], [place] Comment on above: Source- MDRD equatio n with creatinine calibration to IDMS(NKDEP) eGFR not recommended for drug dose adjustment GFR/1.73 sq M predicted among blacks MDRD (S/P/Bld) [Vol rate/Area] 38.9 mL/min/{1.73_m2} >60 [place] Glucose [Mass/Vol] 180 mg/dL High 70 - 100 mg/dL [place] Interpretation and review of laboratory results Abnormal [place] Potassium [Moles/Vol] 5.7 mmol/L High 3.5 - 5.1 mmol/L [place], [place] Protein [Mass/Vol] 6.8 g/dL 6.3 - 8.2 g/dL [place], [place] Sodium [Moles/Vol] 135 mmol/L 135 - 145 mmol/L [place] Urea nitrogen [Mass/Vol] 33 mg/dL High 7 - 20 mg/dL [place] Test Performed by [facility], [facility] [place] [address] [place], [place] Otheron 06-19-2019 Blood Culture, Routine No growth at 5 days. [place], [place] Test Performed by [facility], [facility] [place] [address] Specimen Source Comment:Blood [place], [place] POCT Glucoseon 06-19-2019 Glucose [Mass/Vol] 135 mg/dL High 70 - 100 mg/dL [place], [place] Comment on above: Test performed by gl ucose meter. Results may be 10%-15% lower than serum/plasma values. (CLIA ID [id number]) Interpretation and review of laboratory results Abnormal [place], [place] Test Performed by [facility], [address] [place] [address] [place], [place] Glucose [Mass/Vol] 219 mg/dL High 70 - 100 mg/dL [place], [place] Comment on above: Test performed by gl ucose meter. Results may be 10%-15% lower than serum/plasma values. (CLIA ID [id number]) Interpretation and review of laboratory results Abnormal [place] Test Performed by [facility], [address] [place] [address] [place] Glucose [Mass/Vol] 222 mg/dL High 70 - 100 mg/dL [place], [place] Comment on above: Test performed by ucose meter. Results may be 10%-15% lower than serum/plasma values. (CLIA ID [id number]) Interpretation and review of laboratory results Abnormal [place] Test Performed by [facility], [facility] [place] [address] [place] Procalcitoninon 06-19-2019 Interpretation and review of laboratory results Abnormal [place] Procalcitonin 0.32 ng/mL Abnormal <0.10 [place] Sodium [Moles/Vol] See Below [place], [place] Comment on above: PCT <0.50 = Low risk of severe sepsis and/or septic shock. PCT >2.00 = High risk of severe sepsis and/or septic shock. Test Performed by [facility], [address] [place] [address] [place] Comprehensive Metabolic Pane l w/ Reflex to MGon 06-18-2019 Albumin [Mass/Vol] 3.3 g/dL Low 3.5 - 5 g/dL [place] ALP [Catalytic activity/Vol] 94 U/L 38 - 126 U/L [place] ALT [Catalytic activity/Vol] 44 U/L 13 - 69 U/L [place] Anion gap [Moles/Vol] 10 mmol/L [place], [place] AST [Catalytic activity/Vol] 48 U/L High 15 - 46 U/L [place] Bilirubin Ql (U) 0.5 mg/dL 0.2 - 1.3 mg/dL [place] Calcium [Mass/Vol] 8.7 mg/dL 8.4 - 10. 4 mg/dL [place] Chloride [Moles/Vol] 100 mmol/L 98 - 10 7 mmol/L [place] CO2 [Moles/Vol] 26 mmol/L 22 - 30 mmol/L [place] Creatinine [Mass/Vol] 1.53 mg/dL High 0.52 - 1.25 mg/dL [place] EGFR IF NonAfrican Vincentian 35.6 mL/min >60 [place] Comment on above: Source- MDRD equatio n with creatinine calibration to IDMS(NKDEP) eGFR not recommended for drug dose adjustment GFR/1.73 sq M predicted among blacks MDRD (S/P/Bld) [Vol rate/Area] 43.1 mL/min/{1.73_m2} >60 [place] Glucose [Mass/Vol] 108 mg/dL High 70 - 100 mg/dL [place] Interpretation and review of laboratory results Abnormal [place] Potassium [Moles/Vol] 4.2 mmol/L 3.5 - 5.1 mmol/L [place] Protein [Mass/Vol] 6.1 g/dL Low 6.3 - 8.2 g/dL [place] Sodium [Moles/Vol] 135 mmol/L 135 - 145 mmol/L [place], [place] Urea nitrogen [Mass/Vol] 29 mg/dL High 7 - 20 mg/dL [place] Test Performed by [facility], [address] [place] [address] [place] POCT Glucoseon 06-18-2019 Glucose [Mass/Vol] 189 mg/dL High 70 - 100 mg/dL [place], [place] Comment on above: Test performed by gl ucose meter. Results may be 10%-15% lower than serum/plasma values. (CLIA ID [id number]) Interpretation and review of laboratory results Abnormal [place], [place] Test Performed by [facility], [address] [place] [address] [place] Glucose [Mass/Vol] 207 mg/dL High 70 - 100 mg/dL [place], [place] Comment on above: Test performed by gl ucose meter. Results may be 10%-15% lower than serum/plasma values. (CLIA ID [id number]) Interpretation and review of laboratory results Abnormal [place], [place] Test Performed by [facility], [facility] [place] [address] [place], [place] Glucose [Mass/Vol] 206 mg/dL High 70 - 100 mg/dL [place], [place] Comment on above: Test performed by gl ucose meter. Results may be 10%-15% lower than serum/plasma values. (CLIA ID [id number]) Interpretation and review of laboratory results Abnormal [place], [place] Test Performed by [facility], [address] [place] [address] [place], [place] Glucose [Mass/Vol] 156 mg/dL High 70 - 100 mg/dL [place], [place] Comment on above: Test performed by gl ucose meter. Results may be 10%-15% lower than serum/plasma values. (CLIA ID [id number]) Interpretation and review of laboratory results Abnormal [place], [place] Test Performed by [facility], [facility] [place] [address] [place], [place] CBCon 06-17-2019 Erythrocyte distribution width (RBC) [Ratio] 22.4 % High 11.5 - 14.5 % [place] Hematocrit (Bld) [Volume fraction] 24.8 % Low 35 - 47 % [place] Hemoglobin (Bld) [Mass/Vol] 7.6 g/dL Low 11.7 - 16 g/dL [place] Interpretation and review of laboratory results Abnormal [place] MCH (RBC) [Entitic mass] 23.3 pg Low 26 - 34 pg [place] MCHC (RBC) [Mass/Vol] 30.7 % Low 32 - 36 % [place] MCV (RBC) [Entitic vol] 76.1 fL Low 79 - 98 fL [place] Platelet mean volume (Bld) [Entitic vol] 7.8 fL 7.4 - 10.4 fL [place], [place] Platelets (Bld) [#/Vol] 403 10*3/uL 140 - 440 10*3/uL [place] RBC (Bld) [#/Vol] 3.26 10*6/uL Low 3.8 - 5.2 10*6/uL [place] WBC (Bld) [#/Vol] 13.3 10*3/uL High 3.6 - 10.7 10*3/uL [place] Test Performed by [facility], [address] [place] [address] [place] Comprehensive Metabolic Pane l w/ Reflex to MGon 06-17-2019 Albumin [Mass/Vol] 3.7 g/dL 3.5 - 5 g/dL [place] ALP [Catalytic activity/Vol] 121 U/L 38 - 126 U/L [place] ALT [Catalytic activity/Vol] 30 U/L 13 - 69 U/L [place] Anion gap [Moles/Vol] 14 mmol/L [place], [place] AST [Catalytic activity/Vol] 34 U/L 15 - 46 U/L [place] Bilirubin Ql (U) 0.7 mg/dL 0.2 - 1.3 mg/dL [place] Calcium [Mass/Vol] 8.5 mg/dL 8.4 - 10. 4 mg/dL [place] Chloride [Moles/Vol] 98 mmol/L 98 - 10 7 mmol/L [place] CO2 [Moles/Vol] 21 mmol/L Low 22 - 30 mmol/L [place] Creatinine [Mass/Vol] 0.94 mg/dL 0.52 - 1.25 mg/dL [place] EGFR IF NonAfrican Vincentian >60.0 >60 mL/min [place] Comment on above: Source- MDRD equatio n with creatinine calibration to IDMS(NKDEP) eGFR not recommended for drug dose adjustment GFR/1.73 sq M predicted among blacks MDRD (S/P/Bld) [Vol rate/Area] mL/min/{1.73_m2} >60 mL/min [place] Glucose [Mass/Vol] 399 mg/dL High 70 - 100 mg/dL [place], [place] Comment on above: repeated Interpretation and review of laboratory results Abnormal [place], [place] Potassium [Moles/Vol] 5.3 mmol/L High 3.5 - 5.1 mmol/L [place] Protein [Mass/Vol] 6.6 g/dL 6.3 - 8.2 g/dL [place] Sodium [Moles/Vol] 134 mmol/L Low 135 - 145 mmol/L [place], [place] Urea nitrogen [Mass/Vol] 25 mg/dL High 7 - 20 mg/dL [place] Test Performed by [facility], [facility] [place] [address] [place] Hematologyon 06-17-2019 ABO and Rh group Nom (Bld) 5100 [place], [place] Metabolic Panelon 06-17-2019 Sodium [Moles/Vol] [id number] [place] Sodium [Moles/Vol] released [place], [place] POCT Glucoseon 06-17-2019 Glucose [Mass/Vol] 305 mg/dL High 70 - 100 mg/dL [place], [place] Comment on above: Test performed by gl ucose meter. Results may be 10%-15% lower than serum/plasma values. (CLIA ID [id number]) Interpretation and review of laboratory results Abnormal [place] Test Performed by [facility], [facility] [place] [address] [place] Glucose [Mass/Vol] 373 mg/dL High 70 - 100 mg/dL [place], [place] Comment on above: Test performed by gl ucose meter. Results may be 10%-15% lower than serum/plasma values. (CLIA ID [id number]) Interpretation and review of laboratory results Abnormal [place], [place] Test Performed by [facility], [facility] [place] [address] [place] Glucose [Mass/Vol] 477 mg/dL High 70 - 100 mg/dL [place], [place] Comment on above: Test performed by gl ucose meter. Results may be 10%-15% lower than serum/plasma values. (CLIA ID [id number]) Interpretation and review of laboratory results Abnormal [place] Test Performed by [address] [address] [place] PREPARE RBC (CROSSMATCH)on 0 06-17-2019 Blood product unit ID (Dose) [#] [id number] [place] Blood product unit ID (Dose) [#] [id number] [place] Sodium [Moles/Vol] [id number] mmol/L [place] Sodium [Moles/Vol] [id number] mmol/L [place] Potassiumon 06-17-2019 Interpretation and review of laboratory results Abnormal [place] Potassium [Moles/Vol] 5.4 mmol/L High 3.5 - 5.1 mmol/L [place] Test Performed by [address] [address] [place] Procalcitoninon 06-17-2019 Interpretation and review of laboratory results Abnormal [place] Procalcitonin 0.11 ng/mL Abnormal <0.10 [place] Sodium [Moles/Vol] See Below [place], [place] Comment on above: PCT <0.50 = Low risk of severe sepsis and/or septic shock. PCT >2.00 = High risk of severe sepsis and/or septic shock. Test Performed by [facility], [address] [place] [address] [place] Albuminon 06-16-2019 Albumin [Mass/Vol] 3.9 g/dL 3.5 - 5 g/dL [place] Test Performed by [address] [address] [place] CBCon 06-16-2019 Erythrocyte distribution width (RBC) [Ratio] 22.9 % High 11.5 - 14.5 % [place] Hematocrit (Bld) [Volume fraction] 28.2 % Low 35 - 47 % [place] Hemoglobin (Bld) [Mass/Vol] 8.8 g/dL Low 11.7 - 16 g/dL [place] Interpretation and review of laboratory results Abnormal [place], [place] MCH (RBC) [Entitic mass] 23.8 pg Low 26 - 34 pg [place] MCHC (RBC) [Mass/Vol] 31.2 % Low 32 - 36 % [place] MCV (RBC) [Entitic vol] 76.0 fL Low 79 - 98 fL [place] Platelet mean volume (Bld) [Entitic vol] 7.7 fL 7.4 - 10.4 fL [place] Platelets (Bld) [#/Vol] 372 10*3/uL 140 - 440 10*3/uL [place] RBC (Bld) [#/Vol] 3.71 10*6/uL Low 3.8 - 5.2 10*6/uL [place] WBC (Bld) [#/Vol] 6.7 10*3/uL 3.6 - 10.7 10*3/uL [place] Test Performed by [facility], [address] [place] [address] [place] Erythrocyte distribution width (RBC) [Ratio] disregard Critically abnormal 11.5 - 14.5 % [place] Comment on above: CORRECTED RESULT...P revious above value was 23.2, verified on 06/16/19 at 04:45 by LRB . Hematocrit (Bld) [Volume fraction] disregard Critically abnormal 35 - 47 % [place] Comment on above: CORRECTED RESULT...P revious above value was 30.2, verified on 06/16/19 at 04:45 by LRB . Hemoglobin (Bld) [Mass/Vol] disregard Critically abnormal 11.7 - 16 g/dL [place], [place] Comment on above: CORRECTED RESULT...P revious above value was 9.3, verified on 06/16/19 at 04:45 by LRB . Interpretation and review of laboratory results Abnormal [place] MCH (RBC) [Entitic mass] disregard Critically abnormal 26 - 34 pg [place], [place] Comment on above: CORRECTED RESULT...P revious above value was 23.4, verified on 06/16/19 at 04:45 by LRB . MCHC (RBC) [Mass/Vol] disregard Critically abnormal 32 - 36 % [place], [place] Comment on above: CORRECTED RESULT...P revious above value was 30.8, verified on 06/16/19 at 04:45 by LRB . MCV (RBC) [Entitic vol] disregard Critical ly abnormal 79 - 98 fL [place], [place] Comment on above: CORRECTED RESULT...P revious above value was 75.8, verified on 06/16/19 at 04:45 by LRB . RBC (Bld) [#/Vol] disregard Critically abnormal 3.8 - 5.2 10*6/uL [place], [place] Comment on above: CORRECTED RESULT...P revious above value was 3.98, verified on 06/16/19 at 04:45 by LRB . WBC (Bld) [#/Vol] disregard Critically abnormal 3.6 - 10.7 10*3/uL [place], [place] Comment on above: CORRECTED RESULT...P revious above value was 3.7, verified on 06/16/19 at 04:45 by LRB . Test Performed by [address] [address] [place] Comprehensive Metabolic Pane l w/ Reflex to MGon 06-16-2019 Albumin [Mass/Vol] 3.5 g/dL 3.5 - 5 g/dL [place] ALP [Catalytic activity/Vol] 167 U/L High 38 - 126 U/L [place] ALT [Catalytic activity/Vol] 28 U/L 13 - 69 U/L [place] Anion gap [Moles/Vol] 11 mmol/L [place] AST [Catalytic activity/Vol] 29 U/L 15 - 46 U/L [place] Bilirubin Ql (U) 0.7 mg/dL 0.2 - 1.3 mg/dL [place] Calcium [Mass/Vol] 8.6 mg/dL 8.4 - 10. 4 mg/dL [place], [place] Chloride [Moles/Vol] 98 mmol/L 98 - 10 7 mmol/L [place] CO2 [Moles/Vol] 23 mmol/L 22 - 30 mmol/L [place] Creatinine [Mass/Vol] 0.87 mg/dL 0.52 - 1.25 mg/dL [place], [place] EGFR IF NonAfrican Vincentian >60.0 >60 mL/min [place], [place] Comment on above: Source- MDRD equatio n with creatinine calibration to IDMS(NKDEP) eGFR not recommended for drug dose adjustment GFR/1.73 sq M predicted among blacks MDRD (S/P/Bld) [Vol rate/Area] mL/min/{1.73_m2} >60 mL/min [place] Glucose [Mass/Vol] 385 mg/dL High 70 - 100 mg/dL [place] Interpretation and review of laboratory results Abnormal [place], [place] Potassium [Moles/Vol] 4.9 mmol/L 3.5 - 5.1 mmol/L [place] Protein [Mass/Vol] 6.5 g/dL 6.3 - 8.2 g/dL [place] Sodium [Moles/Vol] 131 mmol/L Low 135 - 145 mmol/L [place], [place] Urea nitrogen [Mass/Vol] 31 mg/dL High 7 - 20 mg/dL [place] Test Performed by [facility], [address] [place] [address] [place] Hemoglobin A1Con 06-16-2019 eAG 240 mg/dL [place] HbA1c (Bld) [Mass fraction] 10.0 % High 4 - 5.7 % [place] Comment on above: --HgbA1C levels may not be accurate in patients who have renal disease, received recent blood transfusions, are anemic, or who have dyshemoglobinemia. Interpretation and review of laboratory results Abnormal [place] Test Performed by [address] [address] [place] [address] [place], [place] POCT Glucoseon 06-16-2019 Glucose [Mass/Vol] 386 mg/dL High 70 - 100 mg/dL [facility] [place] Comment on above: Test performed by gl ucose meter. Results may be 10%-15% lower than serum/plasma values. (CLIA ID [id number]) Interpretation and review of laboratory results Abnormal [facility] [place] Test Performed by [facility], [address] [place] [place] [address] [facility] [place] Glucose [Mass/Vol] 287 mg/dL High 70 - 100 mg/dL [facility] [place] Comment on above: Test performed by gl ucose meter. Results may be 10%-15% lower than serum/plasma values. (CLIA ID [id number]) Interpretation and review of laboratory results Abnormal [facility] [place] Test Performed by [facility], [address] [place] [place] [address] [facility] [place] Glucose [Mass/Vol] 285 mg/dL High 70 - 100 mg/dL [facility] [place] Comment on above: Test performed by gl ucose meter. Results may be 10%-15% lower than serum/plasma values. (CLIA ID [id number]) Interpretation and review of laboratory results Abnormal [facility] [place] Test Performed by [facility], [address] [place] [place] [address] [facility] [place] Glucose [Mass/Vol] 431 mg/dL High 70 - 100 mg/dL [facility] [place] Comment on above: Test performed by gl ucose meter. Results may be 10%-15% lower than serum/plasma values. (CLIA ID [id number]) Interpretation and review of laboratory results Abnormal [facility] [place] Test Performed by [facility], [address] [place] [address] [facility] [place] Glucose [Mass/Vol] 431 mg/dL High 70 - 100 mg/dL [facility] [place] Comment on above: Test performed by gl ucose meter. Results may be 10%-15% lower than serum/plasma values. (CLIA ID [id number]) Interpretation and review of laboratory results Abnormal [facility] [place] Test Performed by [facility], [address] [place] [id number] [place] [address] Vancomycin, Troughon 019 Vancomycin Tr 17.1 ug/mL 15 - 20 ug/mL [place], [place] Comment on above: . Test Performed by [facility], [address] [place] [id number] [place] [address] [facility]Con 06-15-2019 Erythrocyte distribution width (RBC) [Ratio] 22.9 % High 11.5 - 14.5 % [place], [place] Hematocrit (Bld) [Volume fraction] 27.2 % Low 35 - 47 % [place] Hemoglobin (Bld) [Mass/Vol] 8.8 g/dL Low 11.7 - 16 g/dL [place] Interpretation and review of laboratory results Abnormal [place] MCH (RBC) [Entitic mass] 24.1 pg Low 26 - 34 pg [place] MCHC (RBC) [Mass/Vol] 32.2 % 32 - 36 % [place] MCV (RBC) [Entitic vol] 74.8 fL Low 79 - 98 fL [place], [place] Platelet mean volume (Bld) [Entitic vol] 7.8 fL 7.4 - 10.4 fL [place], [place] Platelets (Bld) [#/Vol] 353 10*3/uL 140 - 440 10*3/uL [place] RBC (Bld) [#/Vol] 3.64 10*6/uL Low 3.8 - 5.2 10*6/uL [place] WBC (Bld) [#/Vol] 6.6 10*3/uL 3.6 - 10.7 10*3/uL [place] Test Performed by [facility], [address] [place] [id number] [place] [address] Comprehensive Metabolic Pane l w/ Reflex to MGon 06-15-2019 Albumin [Mass/Vol] 3.4 g/dL Low 3.5 - 5 g/dL [place], [place] ALP [Catalytic activity/Vol] 168 U/L High 38 - 126 U/L [place] ALT [Catalytic activity/Vol] 27 U/L 13 - 69 U/L [place] Anion gap [Moles/Vol] 10 mmol/L [place], [place] AST [Catalytic activity/Vol] 30 U/L 15 - 46 U/L [place] Bilirubin Ql (U) 0.5 mg/dL 0.2 - 1.3 mg/dL [place] Calcium [Mass/Vol] 8.7 mg/dL 8.4 - 10. 4 mg/dL [place] Chloride [Moles/Vol] 100 mmol/L 98 - 10 7 mmol/L [place] CO2 [Moles/Vol] 25 mmol/L 22 - 30 mmol/L [place] Creatinine [Mass/Vol] 0.86 mg/dL 0.52 - 1.25 mg/dL [place] EGFR IF NonAfrican Vincentian >60.0 >60 mL/min [place], [place] Comment on above: Source- MDRD equatio n with creatinine calibration to IDMS(NKDEP) eGFR not recommended for drug dose adjustment GFR/1.73 sq M predicted among blacks MDRD (S/P/Bld) [Vol rate/Area] mL/min/{1.73_m2} >60 mL/min [place] Glucose [Mass/Vol] 281 mg/dL High 70 - 100 mg/dL [place] Interpretation and review of laboratory results Abnormal [place], [place] Potassium [Moles/Vol] 4.7 mmol/L 3.5 - 5.1 mmol/L [place] Protein [Mass/Vol] 6.4 g/dL 6.3 - 8.2 g/dL [place] Sodium [Moles/Vol] 135 mmol/L 135 - 145 mmol/L [place] Urea nitrogen [Mass/Vol] 31 mg/dL High 7 - 20 mg/dL [place] Test Performed by [facility], [facility] [place] [place] [address] [place], [place] EKG 12 Leadon 06-15-2019 RobertNati Incoming Cardiology Results From [facility] - 06/15/2019 5:33 PM EDT [facility] Test Date: 2019-06-14 Pat Name: Will Jacinto Department: 1A6 Room: 6125 Gender: F 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 : 1965 Requested By: Order Number: [id number] Reading MD: Ezio Schmitt Measurements Intervals [place] Rate: 97 P: 50 IN: 169 QRS: -27 QRSD: 113 T: 50 QT: 363 QTc: 461 Interpretive Statements Sinus rhythm Low voltage, precordial leads Left ventricular hypertrophy ST elev, consider awmi Electronically Signed On 06-15-2019 17:32:44 EDT by Ezio [facility] Test Date: 2019-06-14 Pat Name: Will Jacinto Department: 1A6 Room: 6125 Gender: F 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 : 1965 Requested By: Order Number: [id number] Reading MD: Ezio Schmitt Measurements Intervals [place] Rate: 97 P: 50 IN: 169 QRS: -27 QRSD: 113 T: 50 QT: 363 QTc: 461 Interpretive Statements Sinus rhythm Low voltage, precordial leads Left ventricular hypertrophy ST elev, consider awmi Electronically Signed On 06-15-2019 17:32:44 EDT by Ezio [place], [place] POCT Glucoseon 06-15-2019 Glucose [Mass/Vol] 402 mg/dL High 70 - 100 mg/dL [place], [place] Comment on above: Test performed by gl ucose meter. Results may be 10%-15% lower than serum/plasma values. (CLIA ID [id number]) Interpretation and review of laboratory results Abnormal [place], [place] Test Performed by [facility], [address] [place] [address] [place], [place] Glucose [Mass/Vol] 315 mg/dL High 70 - 100 mg/dL [place], [place] Comment on above: Test performed by gl ucose meter. Results may be 10%-15% lower than serum/plasma values. (CLIA ID [id number]) Interpretation and review of laboratory results Abnormal [facility] Test Performed by [facility], [address] [place] [address] [facility] [place] Glucose [Mass/Vol] 290 mg/dL High 70 - 100 mg/dL [facility] [place] Comment on above: Test performed by gl ucose meter. Results may be 10%-15% lower than serum/plasma values. (CLIA ID [id number]) Interpretation and review of laboratory results Abnormal [facility] [place] Test Performed by [facility], [address] [place] [address] [facility] [place] Glucose [Mass/Vol] 414 mg/dL High 70 - 100 mg/dL [facility] [place] Comment on above: Test performed by gl ucose meter. Results may be 10%-15% lower than serum/plasma values. (CLIA ID [id number]) Interpretation and review of laboratory results Abnormal [facility] [place] Test Performed by [facility], [address] [place] [place] [address] [facility] [place] Glucose [Mass/Vol] 366 mg/dL High 70 - 100 mg/dL [facility] [place] Comment on above: Test performed by gl ucose meter. Results may be 10%-15% lower than serum/plasma values. (CLIA ID [id number]) Interpretation and review of laboratory results Abnormal [facility] [place] Test Performed by [facility], [address] [address] [facility] [place] Glucose [Mass/Vol] 357 mg/dL High 70 - 100 mg/dL [facility] [place] Comment on above: Test performed by gl ucose meter. Results may be 10%-15% lower than serum/plasma values. (CLIA ID [id number]) Interpretation and review of laboratory results Abnormal [facility] [place] Test Performed by [facility], [address] [place] [address] [facility] [place] Add On Lab Teston 06-14-2019 Sodium [Moles/Vol] Accepted [facility] [place] Comment on above: Specimen available & acceptable for analysis. Test Performed by [facility], [address] [place] [address] [place], [place] Basic Metabolic Panelon 08- Anion gap [Moles/Vol] 13 mmol/L [place] Calcium [Mass/Vol] 9.6 mg/dL 8.4 - 10. 4 mg/dL [place], [place] Chloride [Moles/Vol] 96 mmol/L Low 98 - 10 7 mmol/L [place], [place] CO2 [Moles/Vol] 27 mmol/L 22 - 30 mmol/L [place] Creatinine [Mass/Vol] 0.89 mg/dL 0.52 - 1.25 mg/dL [place] EGFR IF NonAfrican Vincentian >60.0 >60 mL/min [place], [place] Comment on above: Source- MDRD equatio n with creatinine calibration to IDMS(NKDEP) eGFR not recommended for drug dose adjustment GFR/1.73 sq M predicted among blacks MDRD (S/P/Bld) [Vol rate/Area] mL/min/{1.73_m2} >60 mL/min [place] Glucose [Mass/Vol] 325 mg/dL High 70 - 100 mg/dL [place] Interpretation and review of laboratory results Abnormal [place] Potassium [Moles/Vol] 4.8 mmol/L 3.5 - 5.1 mmol/L [place] Sodium [Moles/Vol] 135 mmol/L 135 - 145 mmol/L [place] Urea nitrogen [Mass/Vol] 30 mg/dL High 7 - 20 mg/dL [place] Beta-Hydroxybutyrateon 06-14 Beta-Hydroxybutyrate 1.24 mg/dL 0.2 - 2 .81 mg/dL [place], [place] C-Reactive Proteinon 019 CRP [Mass/Vol] 30.7 mg/L High 0 - 6 mg/L [place], [place] Comment on above: . Interpretation and review of laboratory results Abnormal [place] Test Performed by [facility], [address] [place] [address], [place] [address] [place] Hemogram (CBC) w/Auto Diffon 06-14-2019 Absolute Baso # 0.0 10*3/uL 0 - 0.2 10*3/uL [place] Absolute Neut # 4.8 10*3/uL 1.8 - 7 10*3/uL [place], [place] Basophils/100 WBC (Bld) 0.5 % 0 - 2 % [place], [place] Eosinophils (Bld) [#/Vol] 0.1 10*3/uL 0 - 0.5 10*3/uL [place] Eosinophils/100 WBC (Bld) 1.1 % 1 - 6 % [place] Erythrocyte distribution width (RBC) [Ratio] 22.6 % High 11.5 - 14.5 % [place] Granulocytes/100 WBC (Bld) 69.0 % 40 - 80 % [place] Hematocrit (Bld) [Volume fraction] 30.2 % Low 35 - 47 % [place] Hemoglobin (Bld) [Mass/Vol] 9.6 g/dL Low 11.7 - 16 g/dL [place] Interpretation and review of laboratory results Abnormal [place] Lymphocytes (Bld) [#/Vol] 1.5 10*3/uL 1 - 4.3 10*3/uL [place] Lymphocytes/100 WBC (Bld) 20.9 % 20 - 40 % [place] MCH (RBC) [Entitic mass] 23.8 pg Low 26 - 34 pg [place] MCHC (RBC) [Mass/Vol] 31.7 % Low 32 - 36 % [place] MCV (RBC) [Entitic vol] 75.1 fL Low 79 - 98 fL [place], [place] Monocytes (Bld) [#/Vol] 0.6 10*3/uL 0 - 0.8 10*3/uL [place], [place] Monocytes/100 WBC (Bld) 8.5 % 2 - 10 % [place] Platelet mean volume (Bld) [Entitic vol] 7.8 fL 7.4 - 10.4 fL [place], [place] Platelets (Bld) [#/Vol] 396 10*3/uL 140 - 440 10*3/uL [place] RBC (Bld) [#/Vol] 4.03 10*6/uL 3.8 - 5.2 10*6/uL [place] WBC (Bld) [#/Vol] 7.0 10*3/uL 3.6 - 10.7 10*3/uL [place] Test Performed by [facility], [facility] [address] Lactic Acid, Plasmaon 2018 Interpretation and review of laboratory results Abnormal [place] Lactate [Moles/Vol] 3.7 mmol/L Critically high 0.7 - 2 mmol/L [place], [place] Comment on above: Repeated Test Performed by [facility], [facility] [address] Otheron 06-14-2019 Test Performed by [facility], [facility] [address] POCT Glucoseon 06-14-2019 Glucose [Mass/Vol] 325 mg/dL High 70 - 100 mg/dL [place], [place] Comment on above: Test performed by gl ucose meter. Results may be 10%-15% lower than serum/plasma values. (CLIA ID [id number]) Interpretation and review of laboratory results Abnormal [place] Test Performed by [facility], [facility] [address] Procalcitoninon 06-14-2019 Procalcitonin <0.10 <0.10 ng/mL [place], [place] Sodium [Moles/Vol] See Below [place], [place] Comment on above: PCT <0.50 = Low risk of severe sepsis and/or septic shock. PCT >2.00 = High risk of severe sepsis and/or septic shock. Test Performed by [facility], [facility] [address] Protime-INRon 06-14-2019 INR Coag (PPP) [Relative time] 1.0 {INR} [place], [place] Comment on above: Recommended Anticoag ulant [...] [Time] 10.9 s 9 - 12 s [place] Comment on above: . Test Performed by [facility], [address] [place] [address] Sedimentation Rateon 019 Interpretation and review of laboratory results Abnormal [place], [place] Sed Rate 65 mm/h High 0 - 20 mm/h [place] Test Performed by [facility], [facility] [place] [place] [id number] [place] [address] TYPE AND SCREENon 06-14-2019 Sodium [Moles/Vol] O [place] Sodium [Moles/Vol] Positive [place], [place] Comment on above: Test Performed by [facility], [facility] [place] [address] Sodium [Moles/Vol] Negative [place], [place] Comment on above: Test Performed by [facility], [facility] [place] [address] Test Performed by [facility], [facility] [place] [place] [id number] [place] [address] XR CHEST 1 VWon 06-14-2019 Robert, Summa Incoming Radiology Results From [facility] [place] - 06/14/2019 8:45 PM EDT Patient Name: WILL JACINTO ---Diagnostic Radiology--- Exam Date/Time 06/14/2019 20:33:50 EDT Exam CR Chest 1 View Frontal Ordering Physician [id number] [employer] Accession Number [id number] CPT4 Codes 10147 () Reason For Exam preop Report Portable [...] RISA Transcribed Date and Time: 06/14/2019 8:44 [place], [place] Patient Name: WILL ALVARADO ---Diagnostic Radiology--- Exam Date/Time 06/14/2019 20:33:50 EDT Exam CR Chest 1 View Frontal Ordering Physician [id number] GAUTAM Accession Number [id number] CPT4 Codes 33978 () Reason For Exam preop Report Portable [...] RISA Transcribed Date and Time: 06/14/2019 8:44 [place] XR FEMUR RIGHT (MIN 2 VIEWS) on 06-14-2019 Robert, Summa Incoming Radiology Results From [facility] [place] - 06/14/2019 11:58 PM EDT Patient Name: WILL JACINTO ---Diagnostic Radiology--- Exam Date/Time 06/14/2019 23:38:07 EDT Exam CR Femur 2+ Views Right n Ordering Physician [id number] [employer] Accession Number [id number] CPT4 Codes 09553 () Reason For Exam pain Report CLINICAL [...] acute osseous findings. Report Dictated on Workstation: [id number] --- Final --- Dictated: 06/14/2019 11:55 pm Dictating Physician: MD OVALLES JEFFREY Signed Date and Time: 06/14/2019 11:57 pm Signed by: MD OVALLES JEFFREY Transcribed Date and Time: 06/14/2019 11:55 [place] Patient Name: WILL ALVARADO ---Diagnostic Radiology--- Exam Date/Time 06/14/2019 23:38:07 EDT Exam CR Femur 2+ Views Right n Ordering Physician New SylvesterSCOOTER DEAL Accession Number [id number] CPT4 Codes 91103 () Reason For Exam pain Report CLINICAL [...] acute osseous findings. Report Dictated on Workstation: [id number] --- Final --- Dictated: 06/14/2019 11:55 pm Dictating Physician: MD OVALLES JEFFREY Signed Date and Time: 06/14/2019 11:57 pm Signed by: MD OVALLES JEFFREY Transcribed Date and Time: 06/14/2019 11:55 [facility] [place] XR FOOT RIGHT (MIN 3 VIEWS)o n 06-14-2019 Patient Name: WILL ALVARADO ---Diagnostic Radiology--- Exam Date/Time 06/14/2019 16:26:30 EDT Exam CR Foot Complete 3+ Views Right Ordering Physician MD MONY, RENE Fontaine Accession Number [id number] CPT4 Codes 49047 () Reason For Exam R foot xray [...] J Transcribed Date and Time: 06/14/2019 4:40 [facility] [place], [place] Robert, Summa Incoming Radiology Results From [facility] [place] - 06/14/2019 4:52 PM EDT Patient Name: WILL JACINTO ---Diagnostic Radiology--- Exam Date/Time 06/14/2019 16:26:30 EDT Exam CR Foot Complete 3+ Views Right Ordering Physician MD MONY, RENE Fontaine Accession Number [id number] CPT4 Codes 34466 () Reason For Exam R foot xray [...] J Transcribed Date and Time: 06/14/2019 4:40 [facility] [place] Jonatan 01-03-2019 CNOV Office Visit (PLWDMR ) -------- WILL JACINTO ([id number]) 1965 M Date Time Provider Department 01/03/19 [...] put on Avycaz. Prescription orders written on senior care paperwork Discussed with patient in detail Modify [...] capsules by mouth every 6 hours. Acidophilus-Pectin, Baldwin 25 million cell -100 mg tab Take [...] reviewed Imaging data: reviewed Jayson Hawthorne MD [phone] 01/03/2019 2:22 PM Roselia Snadoval RN, RN 01/03/2019 2:58 PM Addendum Nursing [...] lower leg Continue current wound care from [place] Compression: ? Cast cover may be purchased [...] following changes to the Wound Center at [phone] or go to the Emergency Department: ? [...] CULTURE AND GRAM STAIN [SQWCUL] Order #: [id number]. #:[id number] WOUND CULTURE AND GRAM STAIN [SQWCUL] Order #: [id number]. #:[id number] Prescriptions as of 01/03/2019 Sig: DOXYCYCLINE MONOHYDRATE [...] lower leg Continue current wound care from [place] Compression: ? Cast cover may be purchased [...] following changes to the Wound Center at [phone] or go to the Emergency Department: ? [...] placed. Zosyn Continue Doxycycline Dr. Marine MD/pw Visit Notes: >> Roselia (Rn) PASTORA Sandvoal chris Jan 03, 2019 2:23 PM Status: Addendum [...] Encounter Status:Closed by DEBBIE CASEY on 01/04/19 [facility] PROGRESSon 01-03-2019 Protein mass conc HNO ID: [id number] Author: Jayson Hawthorne MD Service: (none) Author [...] put on Avycaz. Prescription orders written on senior care paperwork Discussed with patient in detail Modify [...] capsules by mouth every 6 hours. Acidophilus-Pectin, Baldwin 25 million cell -100 mg tab Take [...] reviewed Imaging data: reviewed Jayson Hawthorne MD [phone] 01/03/2019 2:22 PM [facility] Wound Culture/Stainon 2018 Wound Culture/Stain [...] F Ertapenem SUSCEPTIBLE <=0.5 F Critically abnormal [facility] Comment on above: Performed By: #### W CUL ####[facility] [place], [place] [phone] Wound Culture/Stain Sp. Request/Comment: - Eswab Smear [...] on --> ABNORMAL ALERT 01/03/2019 AT 1500 ([id number]) --> ABNORMAL ALERT Many --> ABNORMAL ALERT Providencia stuartii --> ABNORMAL ALERT Refer to specimen collected on --> ABNORMAL ALERT 01/03/2019 AT 1500 ([id number]) --> ABNORMAL ALERT Many --> ABNORMAL ALERT Enterococcus faecalis --> ABNORMAL ALERT Cephalosporins, clindamycin, and TMP-SMX are not effective for the treatment of enterococcal infections. --> ABNORMAL ALERT Rare skin dorinda ORGANISM: Enterococcus faecalis METHOD: Minimum inhibitory concentration(Vitek) Antibiotic Interp TULIO Status Ampicillin SUSCEPTIBLE <=2 F Vancomycin SUSCEPTIBLE 1 F Critically abnormal [facility] Comment on above: Performed By: #### W CUL ####[facility] [place], [place] [phone] CNOVon 12-27-2018 CNOV Office Visit (PLWDMR ) -------- WILL JACINTO ([id number]) 1965 M Date Time Provider Department 12/27/18 [...] doing debridement periodically. He was admitted to [facility] both in September as well as October 2018. He is not currently on any antibiotics. MEDICATIONS: ARIPiprazole (ABILIFY) 10 mg tablet Take 10 mg by mouth once daily. acetaminophen 325 mg cap Take 2 capsules by mouth every 6 hours. Acidophilus-Pectin, Baldwin 25 million cell -100 mg tab Take [...] reviewed Imaging data: reviewed Jayson Hawthorne MD [phone] 12/27/2018 2:07 PM Debbie Casey RN, RN [...] toes to 1' below the knee. MARY WRAP/Tubi-transit clerk: Foot is warm and pink before and [...] intent to comply. Debbie Casey RN, RN 12/27/2018 2:18 PM Addendum WOUND CARE INSTRUCTIONS Will Jacinto [...] dressing twice daily Apply a size G tubi-transit clerk from behind the toes to 1" below [...] following changes to the Wound Center at [phone] or go to the Emergency Department: ? [...] the wound center. 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 Fever or chills ? Increased drainage ? Green or yellow drainage ? Foul odor ? Increased pain ? Hardness around the wound ? Redness, warmth or swelling of the surrounding tissue ? Color change to the wound PLAN: Return to the wound center to see ID in 1 week Rx: Doxycycline Dr. Marine MD/thiago Visit Notes: >> Debbie Farmer) PASTORA Casey chris Dec 27, 2018 2:09 PM [...] toes to 1' below the knee. MARY WRAP/Tubi-transit clerk: Foot is warm and pink before and [...] has expressed intent to comply. >> Debbie Casey RN chris Dec 27, 2018 3:59 [...] Encounter Status:Closed by DEBBIE CASEY on 12/27/18 [facility] PROGRESSon 12-27-2018 Protein mass conc HNO ID: [id number] Author: Jayson Hawthorne MD Service: (none) Author [...] doing debridement periodically. He was admitted to [facility] both in September as well as October 2018. He is not currently on any antibiotics. MEDICATIONS: ARIPiprazole (ABILIFY) 10 mg tablet Take 10 mg by mouth once daily. acetaminophen 325 mg cap Take 2 capsules by mouth every 6 hours. Acidophilus-Pectin, Baldwin 25 million cell -100 mg tab Take [...] reviewed Imaging data: reviewed Jayson Hawthorne MD [phone] 12/27/2018 2[facility]PLWDMR ) -------- DONTEWILL GAN ([id number]) 1965 M Date Time Provider Department 07/12/18 1:20 PM [facility] PLWDMR During your visit today, we recorded the following information about you: Temperature Pulse Respiration Blood pressure 98.4 degrees 97/minute 17/minute 137/69 Jayson Hawthorne MD, MD 07/15/2018 10:32 AM Signed INFECTIOUS DISEASE WOUND [...] capsules by mouth every 6 hours. Acidophilus-Pectin, Baldwin 25 million cell -100 mg tab Take [...] reviewed Imaging data: reviewed Jayson Hawthorne MD [phone] 07/12/2018 2:03 PM Priscila Vazquez MA, MA 07/12/2018 3:03 PM Addendum Nursing Note See [...] and kerlix. Size G Tubigrip applied. MARY WRAP/Tubi-transit clerk: Foot is warm and pink before and [...] expressed intent to comply. Priscila Vazquez MA, MA 07/12/2018 2:18 PM Signed WOUND CARE INSTRUCTIONS [...] following changes to the Wound Center at [phone] or go to the Emergency Department: ? Fever or chills ? Increased drainage ? Green or yellow drainage ? Foul odor ? Increased pain ? Hardness around the wound ? Redness, warmth or swelling of the surrounding tissue ? Color change to the wound PLAN: Return to the wound center in [address] to [address] Glenn Hawthorne MD/csm Referring Provider: SELF [200] Allergies As of Date: 07/12/2018 (No Known Allergies) Date Reviewed: 07/12/2018 Reviewed by: Priscila (Zina) ZINA Vazquez - Fully Assessed Reason for Visit: Wound Check [133] Cmt: right lower leg Primary Visit Diagnosis:Chronic osteomyelitis with draining sinus, right ankle and foot (HCC) [M86.471] Other Visit Diagnoses:Lymphedema [I89.0] Pseudomonas aeruginosa infection [A49.8] Type 2 diabetes mellitus with diabetic peripheral angiopathy without gangrene, unspecified whether residential insulin use (HCC) [E11.51] Prescriptions as of 07/12/2018 Sig: DOXYCYCLINE [...] following changes to the Wound Center at [phone] or go to the Emergency Department: ? Fever or chills ? Increased drainage ? Green or yellow drainage ? Foul odor ? Increased pain ? Hardness around the wound ? Redness, warmth or swelling of the surrounding tissue ? Color change to the wound PLAN: Return to the wound center in 2 weeks Patient to see Dr. Glenn Hawthorne MD/[facility] Visit Notes: >> ZINA Berman Ma Jul 12, 2018 2:11 PM Status: Addendum [...] and kerlix. Size G Tubigrip applied. MARY WRAP/Tubi-transit clerk: Foot is warm and pink before and [...] Status:Closed by JAYSON HAWTHORNE MD on 07/15/18 [facility] PROGRESSon 07-12-2018 Protein mass conc HNO ID: [id number] Author: Jayson Hawthorne MD Service: (none) Author [...] capsules by mouth every 6 hours. Acidophilus-Pectin, Baldwin 25 million cell -100 mg tab Take [...] reviewed Imaging data: reviewed Jayson Hawthorne MD [phone] 07/12/2018 2:03 PM [facility] 06-28-2018 CNOV Office Visit (PLWDMR ) -------- OPHELIAWILL ([id number]) 1965 M Date Time Provider Department 06/28/18 [...] capsules by mouth every 6 hours. Acidophilus-Pectin, Baldwin 25 million cell -100 mg tab Take [...] data: reviewed Terrie Kwan MD Pager: Roselia Sandoval RN, RN 06/28/2018 2:38 PM Signed Nursing [...] and has expressed intent to comply. Roselia Sandoval RN, RN 06/28/2018 2:38 PM Signed WOUND [...] following changes to the Wound Center at [phone] or go to the Emergency Department: ? [...] following changes to the Wound Center at [phone] or go to the Emergency Department: ? [...] Kwan MD/pw Visit Notes: >> Roselia (Rn) PASTORA Sandoval chris Jun 28, 2018 2:33 PM Status: Signed [...] Status:Closed by TERRIE KWAN MD on 06/30/18 [facility] PROGRESSon 06-28-2018 Protein mass conc HNO ID: [id number] Author: Terrie Kwan Service: (none) Author Type: [...] capsules by mouth every 6 hours. Acidophilus-Pectin, Baldwin 25 million cell -100 mg tab Take [...] Imaging data: reviewed Terrie Kwan MD Pager: [facility] 06-14-2018 [facility] Office Visit (PLWDMR ) -------- OPHELIAWILL ([id number]) 1965 M Date Time Provider Department 06/14/18 [...] PICC line to be removed by the senior care Continue compression for edema and lymphedema management Continue aggressive wound care He is at a senior care for wound healing and will go home [...] reviewed Imaging data: reviewed Jayson Hawthorne MD [phone] 06/14/2018 1:56 PM Debbie Casey RN, RN 06/14/2018 2:02 PM Signed Nursing [...] weeks PICC is to be removed per senior care EDUCATION: The patient/family was instructed how to [...] intent to comply. Debbie Casey, RN, RN 06/14/2018 2:01 PM Addendum WOUND CARE INSTRUCTIONS Will Jacinto [...] following changes to the Wound Center at [phone] or go to the Emergency Department: ? Fever or chills ? Increased drainage ? Green or yellow drainage ? Foul odor ? Increased pain ? Hardness around the wound ? Redness, warmth or swelling of the surrounding tissue ? Color change to the wound PLAN: Return to the wound center to see ID in 2 weeks PICC is to be removed per senior care Dr. Marine DUMONT/thiago Referring Provider: JAYSON HAWTHORNE [[id number]] Allergies As of Date: 06/14/2018 (No Known Allergies) Date Reviewed: Never Reviewed Reason for Visit: Wound Evaluation [1021] Cmt: right 5th metatarsal Primary Visit Diagnosis:Chronic osteomyelitis with draining sinus, right ankle and foot ([facility]) [M86.471] Other Visit Diagnoses:Lymphedema [I89.0] Pseudomonas aeruginosa infection [A49.8] Type 2 diabetes mellitus with diabetic peripheral angiopathy without gangrene, unspecified whether residential insulin use ([facility]) [E11.51] Prescriptions as of 06/14/2018 [...] following changes to the Wound Center at [phone] or go to the Emergency Department: ? Fever or chills ? Increased drainage ? Green or yellow drainage ? Foul odor ? Increased pain ? Hardness around the wound ? Redness, warmth or swelling of the surrounding tissue ? Color change to the wound PLAN: Return to the wound center to see ID in 2 weeks PICC is to be removed per senior care Dr. Marine DUMONT/mjl Visit Notes: >> Debbie (Rn) PASTORA Casey Jun 14, 2018 1:53 PM Status: Signed [...] weeks PICC is to be removed per senior care EDUCATION: The patient/family was instructed how to [...] Encounter Status:Closed by LURDES CARMONA on 06/16/18 [facility] PROGRESSon 06-14-2018 Protein mass conc HNO ID: [id number] Author: Jayson Hawthorne MD Service: (none) Author Type: Physician Type: Progress Notes Filed: 06/16/2018 11:23 AM Note Text: INFECTIOUS DISEASE WOUND CENTER NOTE Patient Name: Will Jacinto Date: 06/14/2018 ASSESSMENT: R 5th toe OM PsAG and diphtheroids infection Leg lymphedema Obesity DM2 PLAN: Stop meropenem She has completed 6 weeks of treatment PICC line to be removed by the senior care Continue compression for edema and lymphedema management Continue aggressive wound care He is at a senior care for wound healing and will go home [...] Microbiology data: reviewed Imaging data: reviewed Jayson Hawthonre MD [phone] 06/14/2018 1:56 PM [facility] Culture Anaerobeon 8 Culture Anaerobe Specimen Comments: RIGHT FIFTH METATARSALCulture Observations: No anaerobes isolatedSusceptibility Data: --- [facility] Comment on above: Order Comment: CONTR AST PER RADIOLOGIST DISCRETION. R/o abscess, OM Performed By: #### C LÓPEZR ####Nati [facility] [place], [place] [address] Culture Wound Aerobic w/ Gra m Bobby 05-04-2018 Culture Wound Aerobic w/ Gram St Specimen Comments: RIGHT FIFTH METATARSALCulture Exam: ---------1. Corynebacterium striatum Small numbers ofSusceptibility Data: --- [facility] Comment on above: Order Comment: CONTR AST PER RADIOLOGIST DISCRETION. R/o abscess, OM Result Comment: [facility] eptibility testing not routinely performed on this isolate. Performed By: #### C XWND ####[facility] [place] [address] Surgical Pathology Depar tmenton 05-04-2018 [facility] Surgical Pathology Department Name WILL JACINTO Pathologist: VIRGIL JIMENEZ MDDate of Procedure: 05/04/2018Date Received: 05/04/2018Date Reported 05/12/2018Submitting Physician: IWONA NEWSOMEocation: APMISC Copy To/Referring/Attending:Gina GARNER MD Other External # [id number] FINAL DIAGNOSISFIFTH METATARSAL, RIGHT, AMPUTATION: --MARROW WITH CHRONIC OSTEOMYELITIS AND FOCAL HEMATOPOIESIS--BONE AND CARTILAGE WITH DEGENERATIVE CHANGES Electronically Signed Out By VIRGIL JIMENEZ MD/Johnnie the signature on this report, the individual or group listed as making theFinal Interpretation/Diagnosis certifies that they have reviewed this case. Clinical History:Osteomyelitits 5th metatarsal right footSpecimens Submitted As:A: RIGHT FIFTH METATARSAL Other Case Numbers [id number] Description:A. Received in formalin, labeled with the patient's name and hospital numberand right fifth metatarsal is a single fragment of bone measuring 4.3 x 3.1 x2.2 cm. Multimedia Producer sections of the specimen are submitted followingdecalcification .HXRhxr/05/06/2018 Normal [facility] Comment on above: Performed By: #### U HCS ####[facility] Surgical Pathology [address] [place] [address] Ferritinon 04-30-2018 Ferritin 138 ng/mL Normal 8-252 [facility] Comment on above: Performed By: #### B 12, ANATN ####[place] [address] Iron with TIBCon 04-30-2018 % Saturation 19 % Normal 16-46 [facility] Comment on above: Performed By: #### I RONIBC ####[place] [id number] Iron 43 ug/dL Low 50-170 [facility] Comment on above: Performed By: #### I RONIBC ####[place] [id number] TIBC 222 ug/dL Low 250-450 [facility] Comment on above: Performed By: #### I RONIBC ####[place] [id number] Occult Blood Stool 1-3on Occult Blood Normal NEGATIVE [facility] Comment on above: Order Comment: CONTR AST PER RADIOLOGIST DISCRETION. R/o abscess, OM Performed By: #### O CBLDST ####[place] [id number] Occult Blood Negative Normal NEGATIVE [facility] Comment on above: Order Comment: CONTR AST PER RADIOLOGIST DISCRETION. R/o abscess, OM Performed By: #### O CBLDST ####[place] [address] Vitamin B12on 04-30-2018 Cobalamins (Vitamin B12) 365.0 pg/mL Normal 193.0-986.0 [facility] Comment on above: Performed By: #### B 12DRE ####Nati [facility] [place] [address] MRI Low Ext RT Non-JT w/wo c celeste 04-29-2018 MRI Low Ext RT Non-JT w/wo contrast Examination:MRI right footClinical Indication:Pain, swelling and drainage, multiple ulcersComparison:NoneFin dings:Multiplanar multisequence high field strength MRI images were obtained throughthe right foot prior to and after 15 mL Gadavist intravenous gadolinium.Examination is moderately limited by motion artifact and slightly khcrsqhsxldayxtu-gd-szkt e. Unable to utilize the dedicated foot [...] of the fifth metatarsal.Report Dictated on Workstation: [id number] ed by: Shayy Gregory: 04/29/2018 14:18Read by: EVELYNE RAYate: 04/29/2018 14:18 [facility] Comment on above: Order Comment: [...] assess given therecent surgeryReport Dictated on Workstation: [id number] by: Garima Love: 04/28/2018 17:30Read by: EVELYNE PATELate: 04/28/2018 17:30 [facility] Culture Anaerobeon 05 8 Culture Anaerobe Culture Observations: No anaerobes isolatedSusceptibility Data: --- [facility] Comment on above: Performed By: #### C HARLAN ####Nati [facility] [place], [place] [address] Culture Wound Aerobic w/ Gra m Bobby 03-18-2018 Culture Wound Aerobic w/ Gram St Specimen Comments: BoneCulture Observations: Rare colonies of normal skin dorinda (diphtheroids)Direct Exam: ---------No WBCs seenNo organisms seenSusceptibility Data: --- [facility] Comment on above: Order Comment: TULIO p erformed at additional charge whenindicated Performed By: #### C XWND ####[facility] [place] [address] Surgical Pathology Depar tmenton 03-18-2018 [facility] Surgical Pathology Department Name WILL JACINTO Pathologist: VIRGIL JIMENEZ, MDDate of Procedure: 03/18/2018Date Received: 03/18/2018Date Reported 03/29/2018Submitting Physician: IWONA NEWSOMEocation: APMISC Copy To/Referring/Attending:Gina GARNER MD Other External # [id number] FINAL DIAGNOSISBONE, RIGHT FOOT, EXCISION: --CHRONIC OSTEOMYELITIS Electronically Signed Out By VIRGIL JIMENEZ MD/Johnnie the signature on this report, the individual or group listed as making theFinal Interpretation/Diagnosis certifies that they have reviewed this case. Clinical History:OsteomylitisSpec imens Submitted As:A: BONE RIGHT FOOT Other Case Numbers [id number] Description:Received in formalin, labeled with the patient's name and hospital number and"bone right foot", is a bone measuring 2.7 x 0.7 x 0.7 cm. Representativesections are submitted in 2 cassettes following decalcification.DJOSumma ry of Cassettes:Specimen Label SiteA 1 resection margin 2 representativedjo/ 018 Normal [facility] Comment on above: Performed By: #### U HCS ####[facility] Surgical Pathology [address] [place] [address] XR Chest Mobile 1 viewon XR Chest [...] mildcongestive heart failure/fluid overload.Report Dictated on Workstation: [id number] ated by: Nay Ovalles: 03/18/2018 14:29Read by: Sofia GREENE: 03/18/2018 14:29 Normal [facility] Iron with TIBCon 03-16-2018 % Saturation 25 % Normal 16-46 [facility] Comment on above: Performed By: #### I ARMINDAC ####[address] [address] Iron 65 ug/dL Normal 50-170 [facility] Comment on above: Performed By: #### I RONIBC ####[address] [address] TIBC 258 ug/dL Normal 250-450 [facility] Comment on above: Performed By: #### I RONMELLYC ####[address] [address] MRI Low Ext RT Non-Jt wo con [...] 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.Report Dictated on Workstation: [id number] ated by: Alonzo GregoryOn: 03/16/2018 10:41Read by: Sofia RAY: 03/16/2018 10:41 Normal [facility] Comment on above: Order Comment: CONTR AST PER RADIOLOGIST DISCRETION Occult Blood Stool 1-3on Occult Blood Normal NEGATIVE [facility] Comment on above: Order Comment: x1 Performed By: #### O CBLDST ####[place] [id number] [place] [address] Occult Blood Negative Normal NEGATIVE [facility] Comment on above: Order Comment: x1 Performed By: #### O CBLDST ####[facility] [place] [address] XR Foot Right complete 3 plu s [...] soft tissue gas collection.Report Dictated on Workstation: [id number] laura by: Nay Muniz: 03/15/2018 23:44Read by: Sofia SEGURA: 03/15/2018 23:44 [facility] Comment on above: Order Comment: R/o O M Culture Anaerobeon 02-04- 8 Culture Anaerobe Specimen Comments: RIGHT FOOT SOFT TISSCulture Exam: ---------1. anaerobic gram positive cocci Small numbers ofSusceptibility Data: --- [facility] Comment on above: Order Comment: AEROB IC/ANAEROBIC CULTURES OF RIGHT FOOT SOFT TISS Result Comment: (TULIO s not performed on anaerobes) Performed By: #### C HARLAN ####Nati [facility], [place] [address] Culture Wound Aerobic w/ Gra m Ston 02-04-2018 Culture Wound Aerobic w/ Gram St Specimen Comments: RIGHT FOOT SOFT TISSCulture Observations: Small numbers of mixed enteric dorinda and mixed skin dorinda- more than 3 organisms with none predominant.No Staphylococcus aureus, Pseudomonas aeruginosa or beta Streptococcus isolatedDirect Exam: ---------No WBCs seenNo organisms seenSusceptibility Data: --- [facility] Comment on above: Order Comment: AEROB IC/ANAEROBIC CULTURES OF RIGHT FOOT SOFT TISS Performed By: #### C XWND ####[facility] [place] [address] MRI Low Ext RT Non-JT w/wo c [facility] 02-02-2018 MRI Low Ext RT Non-JT w/wo [...] clinical concern of osteomyelitis.Report Dictated on Workstation: [id number] ated by: Irma Barragan: 02/03/2018 12:13Read by: EVELYNE STROUDate: 02/03/2018 12:13 [facility] Comment on above: Order Comment: [...] d soft tissue swelling.Report Dictated on Workstation: [id number] ated by: Nay Muniz: 02/02/2018 15:32Read by: SERGIO MUNIZ, EVELYNEate: 02/02/2018 15:32 [facility] Comment on above: Order Comment: R/o O M Vital Signs Date Time Vital Sign Value Performing Clinician Facility 07-11-2025 00:48-0400 Diastolic blood pressure 86 mm[Hg] Hermes Issa MD Work Phone: [facility] 07-11-2025 00:48-0400 Heart rate 72 /min Hermes Issa MD Work Phone: [facility] 07-11-2025 00:48-0400 Respiratory rate 18 /min Hermes Issa MD Work Phone: [facility] 07-11-2025 00:48-0400 SaO2% (BldA) [Mass fraction] 93 % Hermes Issa MD Work Phone: [facility] 07-11-2025 00:48-0400 Systolic blood pressure 147 mm[Hg] Hermes Issa MD Work Phone: [facility] 07-10-2025 15:56-0400 Body height 167.6 cm Hermes Issa MD Work Phone: [facility] 07-10-2025 15:56-0400 Body mass index (BMI) [Ratio] 53.42 kg/m2 Hermes Issa MD Work Phone: [facility] 07-10-2025 15:56-0400 Body temperature 98.4 [degF] Hermes Issa MD Work Phone: [facility] 07-10-2025 15:56-0400 Body weight 150.14 kg Hermes Issa MD Work Phone: [facility] 06-07-2025 13:25-0400 Diastolic blood pressure 71 mm[Hg] Farhad Chavez MD Work Phone: [facility] 06-07-2025 13:25-0400 Heart rate 77 /min Farhad Chavez MD Work Phone: [facility] 06-07-2025 13:25-0400 Respiratory rate 18 /min Farhad Chavez MD Work Phone: [facility] 06-07-2025 13:25-0400 SaO2% (BldA) [Mass fraction] 95 % Farhad Chavez MD Work Phone: [facility] 06-07-2025 13:25-0400 Systolic blood pressure 143 mm[Hg] Farhad Chavez MD Work Phone: [facility] [employer] 06-07-2025 11:35-0400 Body temperature 97 [degF] Farhad Chavez MD Work Phone: [employer] 04-06-2025 08:50-0400 Body height 167.6 cm Gunner Stall PA-C Work Phone: [employer] 04-06-2025 08:50-0400 Body mass index (BMI) [Ratio] 48.1 kg/m2 Gunner Stall PA-C Work Phone: [employer] 04-06-2025 08:50-0400 Body weight 135.17 kg Gunner Stall PA-C Work Phone: [employer] 04-06-2025 08:50-0400 Diastolic blood pressure 72 mm[Hg] Gunner Stall PA-C Work Phone: [employer] 04-06-2025 08:50-0400 Heart rate 86 /min Gunner Stall PA-C Work Phone: [employer] 04-06-2025 08:50-0400 Systolic blood pressure 114 mm[Hg] Gunner Stall PA-C Work Phone: [employer] 02-01-2025 09:50-0400 Body height 167.6 cm Alejandro Mandel DIRECTOR OF COMMUNITY SERVICES - TELEPHOTO ENGINEER Work Phone: [employer] 02-01-2025 09:50-0400 Body mass index (BMI) [Ratio] 48.1 kg/m2 Alejandro Mandel DIRECTOR OF COMMUNITY SERVICES - TELEPHOTO ENGINEER Work Phone: [employer] 02-01-2025 09:50-0400 Body temperature 97 [degF] Alejandro Mandel DIRECTOR OF COMMUNITY SERVICES - TELEPHOTO ENGINEER Work Phone: [employer] 02-01-2025 09:50-0400 Body weight 135.17 kg Alejandro Mandel DIRECTOR OF COMMUNITY SERVICES - TELEPHOTO ENGINEER Work Phone: [employer] 02-01-2025 09:50-0400 Diastolic blood pressure 82 mm[Hg] Alejandro Mandel DIRECTOR OF COMMUNITY SERVICES - TELEPHOTO ENGINEER Work Phone: [facility] 02-01-2025 09:50-0400 Heart rate 76 /min Alejandro Mandel DIRECTOR OF COMMUNITY SERVICES - TELEPHOTO ENGINEER Work Phone: [facility] [employer] 02-01-2025 09:50-0400 Respiratory rate 18 /min Alejandro Mandel DIRECTOR OF COMMUNITY SERVICES - TELEPHOTO ENGINEER Work Phone: [facility] [employer] 02-01-2025 09:50-0400 SaO2% (BldA) [Mass fraction] 97 % Alejandro Mandel DIRECTOR OF COMMUNITY SERVICES - TELEPHOTO ENGINEER Work Phone: [facility] [employer] 02-01-2025 09:50-0400 Systolic blood pressure 124 mm[Hg] Alejandro Mandel DIRECTOR OF COMMUNITY SERVICES - TELEPHOTO ENGINEER Work Phone: [facility] [employer] 01-01-2025 11:26-0500 Body height 167.6 cm Margo Guerrero DIRECTOR OF COMMUNITY SERVICES - TELEPHOTO ENGINEER Work Phone: [facility] [employer] 01-01-2025 11:26-0500 Body mass index (BMI) [Ratio] 48.1 kg/m2 Margo Guerrero DIRECTOR OF COMMUNITY SERVICES - TELEPHOTO ENGINEER Work Phone: [facility] [employer] 01-01-2025 11:26-0500 Body weight 135.17 kg Margo Guerrero DIRECTOR OF COMMUNITY SERVICES - TELEPHOTO ENGINEER Work Phone: [facility] [employer] 01-01-2025 11:26-0500 Diastolic blood pressure 62 mm[Hg] Margo Guerrero DIRECTOR OF COMMUNITY SERVICES - TELEPHOTO ENGINEER Work Phone: [facility] [employer] 01-01-2025 11:26-0500 Heart rate 72 /min Margo Guerrero DIRECTOR OF COMMUNITY SERVICES - TELEPHOTO ENGINEER Work Phone: [employer] 01-01-2025 11:26-0500 Systolic blood pressure 128 mm[Hg] Margo Guerrero DIRECTOR OF COMMUNITY SERVICES - TELEPHOTO ENGINEER Work Phone: [facility] [employer] 12-21-2024 08:04-0500 Body height 167.6 cm Wanda Calendlysantiago DIRECTOR OF COMMUNITY SERVICES - TELEPHOTO ENGINEER Work Phone: [facility] [employer] 12-21-2024 08:04-0500 Body mass index (BMI) [Ratio] 51.65 kg/m2 Wanda Johnson DIRECTOR OF COMMUNITY SERVICES - TELEPHOTO ENGINEER Work Phone: [employer] 12-21-2024 08:04-0500 Body weight 145.15 kg Wanda Johnson DIRECTOR OF COMMUNITY SERVICES - TELEPHOTO ENGINEER Work Phone: [facility] [employer] 12-21-2024 08:04-0500 Diastolic blood pressure 69 mm[Hg] Wanda Johnson DIRECTOR OF COMMUNITY SERVICES - TELEPHOTO ENGINEER Work Phone: [facility] [employer] 12-21-2024 08:04-0500 Heart rate 78 /min Wanda Johnson DIRECTOR OF COMMUNITY SERVICES - TELEPHOTO ENGINEER Work Phone: [facility] [employer] 12-21-2024 08:04-0500 Systolic blood pressure 137 mm[Hg] Wanda Johnson DIRECTOR OF COMMUNITY SERVICES - TELEPHOTO ENGINEER Work Phone: [facility] [employer] 12-07-2024 12:53-0500 Body temperature 97.59 [degF] Lilo Rizo MD Work Phone: [employer] 12-07-2024 12:53-0500 Diastolic blood pressure 80 mm[Hg] Lilo Rizo MD Work Phone: [employer] 12-07-2024 12:53-0500 Heart rate 82 /min Lilo Rizo MD Work Phone: [employer] 12-07-2024 12:53-0500 Systolic blood pressure 139 mm[Hg] Lilo Rizo MD Work Phone: [employer] 11-14-2024 10:09-0500 Body height 167.6 cm Asuncion Black DIRECTOR OF COMMUNITY SERVICES - TELEPHOTO ENGINEER Work Phone: [employer] 11-14-2024 10:09-0500 Body temperature 97.2 [degF] Asuncion Black DIRECTOR OF COMMUNITY SERVICES - TELEPHOTO ENGINEER Work Phone: [employer] 11-14-2024 10:09-0500 Diastolic blood pressure 79 mm[Hg] Asuncion Black DIRECTOR OF COMMUNITY SERVICES - TELEPHOTO ENGINEER Work Phone: [employer] 11-14-2024 10:09-0500 Heart rate 83 /min Asuncion Black DIRECTOR OF COMMUNITY SERVICES - TELEPHOTO ENGINEER Work Phone: [employer] 11-14-2024 10:09-0500 Systolic blood pressure 140 mm[Hg] Asuncion Valencia DIRECTOR OF COMMUNITY SERVICES - TELEPHOTO ENGINEER Work Phone: [employer] 11-12-2024 22:42-0500 Body temperature 98.6 [degF] Virgil Mederos MD Work Phone: [employer] 11-12-2024 22:42-0500 Diastolic blood pressure 68 mm[Hg] Virgil Mederos MD Work Phone: [employer] 11-12-2024 22:42-0500 Heart rate 86 /min Virgil Mederos MD Work Phone: [employer] 11-12-2024 22:42-0500 Respiratory rate 16 /min Virgil Mederos MD Work Phone: [employer] 11-12-2024 22:42-0500 SaO2% (BldA) [Mass fraction] 96 % Virgil Mederos MD Work Phone: [employer] 11-12-2024 22:42-0500 Systolic blood pressure 144 mm[Hg] Virgil Mederos MD Work Phone: [employer] 11-10-2024 11:07-0500 Body height 167.6 cm Asuncion Valencia DIRECTOR OF COMMUNITY SERVICES - TELEPHOTO ENGINEER Work Phone: [employer] 11-10-2024 11:07-0500 Body temperature 97.3 [degF] Asuncion Valencia DIRECTOR OF COMMUNITY SERVICES - TELEPHOTO ENGINEER Work Phone: [employer] 11-10-2024 11:07-0500 Diastolic blood pressure 81 mm[Hg] Asuncion Valencia DIRECTOR OF COMMUNITY SERVICES - TELEPHOTO ENGINEER Work Phone: [employer] 11-10-2024 11:07-0500 Heart rate 83 /min Asuncion Valencia DIRECTOR OF COMMUNITY SERVICES - TELEPHOTO ENGINEER Work Phone: [employer] 11-10-2024 11:07-0500 Systolic blood pressure 142 mm[Hg] Asuncion Valencia DIRECTOR OF COMMUNITY SERVICES - TELEPHOTO ENGINEER Work Phone: [employer] 10-24-2024 14:17-0500 Body temperature 96.91 [degF] Vicente Mixon MD Work Phone: [employer] 10-24-2024 13:39-0500 Diastolic blood pressure 83 mm[Hg] Vicente Mixon MD Work Phone: [facility] [employer] 10-24-2024 13:39-0500 Heart rate 64 /min Vicente Mixon MD Work Phone: [facility] 10-24-2024 13:39-0500 Respiratory rate 16 /min Vicente Mixon MD Work Phone: [facility] [employer] 10-24-2024 13:39-0500 SaO2% (BldA) [Mass fraction] 98 % Vicente Mixon MD Work Phone: [facility] [employer] 10-24-2024 13:39-0500 Systolic blood pressure 123 mm[Hg] Vicente Mixon MD Work Phone: [facility] [employer] 10-23-2024 13:55-0500 SaO2% (BldA) [Mass fraction] 93 % Dontrell Glozman DO Work Phone: [facility] [employer] 10-23-2024 08:14-0500 Body temperature 97.7 [degF] Dontrell Glozman DO Work Phone: [facility] 10-23-2024 08:14-0500 Diastolic blood pressure 54 mm[Hg] Dontrell Glozman DO Work Phone: [facility] 10-23-2024 08:14-0500 Heart rate 85 /min Dontrell Glozman DO Work Phone: [facility] rocket staff 10-23-2024 08:14-0500 Respiratory rate 20 /min Dontrell Glozman DO Work Phone: [facility] rocket [employer] 10-23-2024 08:14-0500 Systolic blood pressure 127 mm[Hg] Dontrell Glozman DO Work Phone: [facility] rocket [employer] 10-22-2024 13:16-0500 Body height 167.6 cm Dontrell Glozman DO Work Phone: [facility] rocket [employer] 10-18-2024 21:04-0500 Body mass index (BMI) [Ratio] 51.65 kg/m2 Dontrell Woodall DO Work Phone: [employer] rocket staff 10-18-2024 21:04-0500 Body weight 145.15 kg Dontrell Woodall DO Work Phone: [facility] rocket staff 02-11-2024 09:55-0400 Body height 167.6 cm Herber Ramos APRN - TELEPHOTO ENGINEER Work Phone: [facility] rocket staff 02-11-2024 09:55-0400 Body mass index (BMI) [Ratio] 46.83 kg/m2 Herber Ramos DIRECTOR OF COMMUNITY SERVICES - TELEPHOTO ENGINEER Work Phone: [employer] rocket staff 02-11-2024 09:55-0400 Body weight 131.54 kg Herber Ramos DIRECTOR OF COMMUNITY SERVICES - TELEPHOTO ENGINEER Work Phone: [employer] rocket staff 02-11-2024 09:55-0400 Diastolic blood pressure 78 mm[Hg] Herber Ramos DIRECTOR OF COMMUNITY SERVICES - TELEPHOTO ENGINEER Work Phone: [facility] rocket staff 02-11-2024 09:55-0400 Heart rate 79 /min Herber Ramos APRN - TELEPHOTO ENGINEER Work Phone: [employer] rocket [employer] 02-11-2024 09:55-0400 Respiratory rate 14 /min Herber Ramos APRN - TELEPHOTO ENGINEER Work Phone: [employer] rocket [employer] 02-11-2024 09:55-0400 SaO2% (BldA) [Mass fraction] 99 % Herber Ramos APRN - TELEPHOTO ENGINEER Work Phone: [facility] rocket staff Comment on above: 02-11-2024 09:55-0400 Systolic blood pressure 131 mm[Hg] Herber Ramos APRN - TELEPHOTO ENGINEER Work Phone: [facility] rocket [facility] 01-27-2024 18:55-0400 Body height 167.6 cm Fermin Nesheim DO Work Phone: [employer] 01-27-2024 18:55-0400 Body mass index (BMI) [Ratio] 46.81 kg/m2 Fermin Nesheim DO Work Phone: [employer] 01-27-2024 18:55-0400 Body temperature 97.59 [degF] Fermin Nesheim DO Work Phone: [employer] 01-27-2024 18:55-0400 Body weight 131.54 kg Fermin Nesheim DO Work Phone: [employer] 01-27-2024 18:55-0400 Diastolic blood pressure 63 mm[Hg] Fermin Nesheim DO Work Phone: [employer] 01-27-2024 18:55-0400 Heart rate 78 /min Fermin Nesheim DO Work Phone: [employer] 01-27-2024 18:55-0400 Respiratory rate 18 /min Fermin Nesheim DO Work Phone: [employer] 01-27-2024 18:55-0400 SaO2% (BldA) [Mass fraction] 99 % Fermin Nesheim DO Work Phone: [employer] 01-27-2024 18:55-0400 Systolic blood pressure 155 mm[Hg] Fermin Nesheim DO Work Phone: [employer] 01-26-2024 21:29-0400 Body height 167.6 cm Art Zeng DO Work Phone: [employer] 01-26-2024 21:29-0400 Body mass index (BMI) [Ratio] 46.81 kg/m2 Art Azucena DO Work Phone: [employer] 01-26-2024 21:29-0400 Body weight 131.54 kg Art Zeng DO Work Phone: [employer] 01-26-2024 21:28-0400 Body temperature 97.9 [degF] Art Azucena DO Work Phone: [employer] 01-26-2024 21:28-0400 Diastolic blood pressure 63 mm[Hg] Art Peraltakemi DO Work Phone: [employer] 01-26-2024 21:28-0400 Heart rate 83 /min Art Peraltakemi DO Work Phone: [employer] 01-26-2024 21:28-0400 Respiratory rate 16 /min Art Zeng DO Work Phone: [employer] 01-26-2024 21:28-0400 SaO2% (BldA) [Mass fraction] 100 % Art Zeng DO Work Phone: [employer] rocket [employer] 01-26-2024 21:28-0400 Systolic blood pressure 124 mm[Hg] Art Zeng DO Work Phone: [employer] 01-22-2024 07:15-0400 Body temperature 97.59 [degF] Jaquan Roldanchke DO Work Phone: [employer] 01-22-2024 07:15-0400 Diastolic blood pressure 51 mm[Hg] Jaquan Roldanchke DO Work Phone: [employer] 01-22-2024 07:15-0400 Heart rate 94 /min Jaquan Roldanchke DO Work Phone: [employer] 01-22-2024 07:15-0400 Respiratory rate 20 /min Jaquan Roldanchke DO Work Phone: [employer] 01-22-2024 07:15-0400 SaO2% (BldA) [Mass fraction] 97 % Jaquan Roldanchke DO Work Phone: [employer] rocket [employer] 01-22-2024 07:15-0400 Systolic blood pressure 160 mm[Hg] Jaquan Roldanchke DO Work Phone: [employer] rocket [employer] 12-29-2023 08:04-0500 Diastolic blood pressure 53 mm[Hg] Edwin Bustos MD Work Phone: [employer] 12-29-2023 08:04-0500 Heart rate 83 /min Edwin Bustos MD Work Phone: [employer] 12-29-2023 08:04-0500 Respiratory rate 17 /min Edwin Bustos MD Work Phone: [employer] 12-29-2023 08:04-0500 SaO2% (BldA) [Mass fraction] 100 % Edwin Bustos MD Work Phone: [facility] rocket [facility] 12-29-2023 08:04-0500 Systolic blood pressure 132 mm[Hg] Edwin Bustos MD Work Phone: [facility] 12-28-2023 23:14-0500 Body height 167.6 cm Edwin Bustos MD Work Phone: [facility] 12-28-2023 23:14-0500 Body mass index (BMI) [Ratio] 52.29 kg/m2 Edwin Bustos MD Work Phone: [facility] 12-28-2023 23:14-0500 Body temperature 97.59 [degF] Edwin Bustos MD Work Phone: [facility] 12-28-2023 23:14-0500 Body weight 146.97 kg Edwin Bustos MD Work Phone: [facility] 12-09-2023 10:05-0500 Diastolic blood pressure 63 mm[Hg] Caridad Evans MD Work Phone: [facility] 12-09-2023 10:05-0500 Heart rate 78 /min Caridad Evans MD Work Phone: [facility] 12-09-2023 10:05-0500 Respiratory rate 23 /min Caridad Evans MD Work Phone: [facility] 12-09-2023 10:05-0500 SaO2% (BldA) [Mass fraction] 97 % Caridad Evans MD Work Phone: [facility] rocket [facility] 12-09-2023 10:05-0500 Systolic blood pressure 159 mm[Hg] Caridad Evans MD Work Phone: [facility] rocket staff 12-09-2023 05:22-0500 Body mass index (BMI) [Ratio] 51.7 kg/m2 Caridad Evans MD Work Phone: [employer] rocket staff 12-09-2023 05:22-0500 Body temperature 98.4 [degF] Caridad Evans MD Work Phone: [employer] rocket staff 12-09-2023 05:22-0500 Body weight 145.29 kg Caridad Evans MD Work Phone: [facility] rocket staff 10-16-2023 21:27-0500 Body temperature 96.91 [degF] Rosauragabe Mustafa DO Work Phone: [employer] rocket staff 10-16-2023 21:27-0500 Diastolic blood pressure 59 mm[Hg] Rosauragabe Mustafa DO Work Phone: [facility] rocket staff 10-16-2023 21:27-0500 Heart rate 76 /min Rosauragabe Mustafa DO Work Phone: [facility] rocket staff 10-16-2023 21:27-0500 Respiratory rate 20 /min Rosaura Mustafa DO Work Phone: [employer] rocket staff 10-16-2023 21:27-0500 SaO2% (BldA) [Mass fraction] 94 % Rosaura Mustafa DO Work Phone: [facility] rocket staff 10-16-2023 21:27-0500 Systolic blood pressure 100 mm[Hg] Rosaura Mustafa DO Work Phone: [facility] rocket staff 10-11-2023 11:21-0500 Body height 167.6 cm Rosaura Mustafa DO Work Phone: [facility] rocket staff 10-07-2023 16:06-0500 Body mass index (BMI) [Ratio] 51 kg/m2 Rosauragabe Mustafa DO Work Phone: [employer] rocket staff 10-07-2023 16:06-0500 Body weight 143.34 kg Rosaura Mustafa DO Work Phone: [facility] 08-19-2023 19:25-0400 Body temperature 97.3 [degF] Aaron Burgos DO Work Phone: [employer] 08-19-2023 19:25-0400 Diastolic blood pressure 60 mm[Hg] Aaron Gombash DO Work Phone: [employer] 08-19-2023 19:25-0400 Heart rate 86 /min Aaron Gombash DO Work Phone: [employer] 08-19-2023 19:25-0400 Respiratory rate 18 /min Aaron Gombash DO Work Phone: [employer] 08-19-2023 19:25-0400 SaO2% (BldA) [Mass fraction] 95 % Aaron Gombash DO Work Phone: [employer] 08-19-2023 19:25-0400 Systolic blood pressure 120 mm[Hg] Aaron Gombash DO Work Phone: [employer] 08-17-2023 12:17-0400 Body height 167.6 cm Aaron Gombash DO Work Phone: [employer] 08-17-2023 12:17-0400 Body mass index (BMI) [Ratio] 54.72 kg/m2 Aaron Gombash DO Work Phone: [employer] 08-17-2023 12:17-0400 Body weight 153.77 kg Aaron Gombash DO Work Phone: [employer] 08-08-2023 13:35-0400 Diastolic blood pressure 63 mm[Hg] Gayle Trevizo MD Work Phone: [employer] 08-08-2023 13:35-0400 Heart rate 100 /min Gayle Trevizo MD Work Phone: [employer] 08-08-2023 13:35-0400 Respiratory rate 20 /min Gayle Trevizo MD Work Phone: [employer] 08-08-2023 13:35-0400 SaO2% (BldA) [Mass fraction] 93 % Gayle Trevizo MD Work Phone: [employer] 08-08-2023 13:35-0400 Systolic blood pressure 122 mm[Hg] Gayle Trevizo MD Work Phone: [employer] 08-08-2023 06:36-0400 Body height 167.6 cm Gayle Trevizo MD Work Phone: [employer] 08-08-2023 06:36-0400 Body mass index (BMI) [Ratio] 54.72 kg/m2 Gayle Trevizo MD Work Phone: [employer] 08-08-2023 06:36-0400 Body temperature 98.29 [degF] Gayle Trevizo MD Work Phone: [employer] 08-08-2023 06:36-0400 Body weight 153.77 kg Gayle Trevizo MD Work Phone: [employer] 07-01-2023 11:21-0400 Body temperature 97.59 [degF] Rosaura Mustafa DO Work Phone: [employer] 07-01-2023 11:21-0400 Diastolic blood pressure 79 mm[Hg] Rosaura Mustafa DO Work Phone: [employer] 07-01-2023 11:21-0400 Heart rate 83 /min Rosaura Mustafa DO Work Phone: [employer] 07-01-2023 11:21-0400 Respiratory rate 20 /min Rosaura Mustafa DO Work Phone: [employer] 07-01-2023 11:21-0400 SaO2% (BldA) [Mass fraction] 94 % Rosaura Mustafa DO Work Phone: [employer] 07-01-2023 11:21-0400 Systolic blood pressure 133 mm[Hg] Rosaura Mustafa DO Work Phone: [employer] 07-01-2023 03:09-0400 Body mass index (BMI) [Ratio] 53.2 kg/m2 Rosaura Mustafa DO Work Phone: [employer] 07-01-2023 03:09-0400 Body weight 149.51 kg Rosaura Mustafa DO Work Phone: [employer] 03-08-2023 19:30-0400 Body temperature 98.49 [degF] Karlos Voll DO Work Phone: [employer] 03-08-2023 19:30-0400 Diastolic blood pressure 62 mm[Hg] Karlos Voll DO Work Phone: [employer] 03-08-2023 19:30-0400 Heart rate 82 /min Karlos Voll DO Work Phone: [employer] 03-08-2023 19:30-0400 Respiratory rate 18 /min Karlos Voll DO Work Phone: [employer] 03-08-2023 19:30-0400 SaO2% (BldA) [Mass fraction] 98 % Karlos Voll DO Work Phone: [employer] 03-08-2023 19:30-0400 Systolic blood pressure 140 mm[Hg] Karlos Voll DO Work Phone: [employer] 03-08-2023 12:54-0400 Body mass index (BMI) [Ratio] 54.07 kg/m2 Karlos Voll DO Work Phone: [employer] 03-08-2023 12:54-0400 Body weight 151.96 kg Karlos Voll DO Work Phone: [employer] 02-09-2023 10:39-0400 Diastolic blood pressure 75 mm[Hg] Geronimo Lee MD Work Phone: [facility] [employer] 02-09-2023 10:39-0400 Systolic blood pressure 137 mm[Hg] Geronimo Lee MD Work Phone: [facility] rocket staff 12-08-2020 19:11-0500 BP Diastolic 74 mm[Hg] Art Zeng [facility] [place] 12-08-2020 19:11-0500 BP Systolic 151 mm[Hg] Art Zeng [email or web address] [facility] [place] 12-08-2020 19:11-0500 Pulse (Heart Rate) 70 /min Art Zeng [facility] [place] 12-08-2020 19:11-0500 Pulse Oximetry 98 % Art Zeng [facility] [place] 12-08-2020 19:11-0500 Respiratory Rate 15 /min Art [facility] [place] [place] 12-08-2020 15:12-0500 Body Temperature 98.71 [degF] Art Carrizales [facility], [place] 12-08-2020 15:12-0500 Height 167.6 cm [facility] [place] 11-28-2020 14:37-0500 Body Temperature 97.81 [degF] [facility] [place] 11-28-2020 14:37-0500 BP Diastolic 79 mm[Hg] Joel [facility] 11-28-2020 14:37-0500 BP Systolic 128 mm[Hg] Joel [facility] 11-28-2020 14:37-0500 Pulse (Heart Rate) 75 /min Joel [facility] 11-28-2020 14:37-0500 Pulse Oximetry 95 % Joel [facility] 11-28-2020 14:37-0500 Respiratory Rate 18 /[facility] [place] 11-27-2020 15:57-0500 Height 167.6 cm Joel [facility] 11-27-2020 06:28-0500 BMI (Body Mass Index) 51.21 kg/m2 Joel [facility] 11-27-2020 06:28-0500 Body weight 143.93 kg Joel Omar [facility], [place] 09-30-2020 14:21-0500 Body Temperature 98.71 [degF] Art Zeng [facility], [place] 09-30-2020 14:21-0500 BP Diastolic 61 mm[Hg] Art Zeng [facility] 09-30-2020 14:21-0500 BP Systolic 115 mm[Hg] Art Zeng [facility] 09-30-2020 14:21-0500 Pulse (Heart Rate) 107 /min Art Zeng [facility] 09-30-2020 14:21-0500 Pulse Oximetry 97 % Art Zeng [facility] [place] 09-30-2020 14:21-0500 Respiratory Rate 18 /min [facility] [place] 09-30-2020 05:45-0500 BMI (Body Mass Index) 53.34 kg/m2 Art Carrizales [facility], [place] 09-30-2020 05:45-0500 Body weight 149.91 kg Art Carrizales [facility], [place] 09-26-2020 13:28-0500 Height 167.6 cm Art Carrizales [facility], [place] 01-02-2020 12:22-0500 Body Temperature 96.3 [degF] [facility] [place] 01-02-2020 12:22-0500 BP Diastolic 80 mm[Hg] Justin Walsh [facility] 01-02-2020 12:22-0500 BP Systolic 142 mm[Hg] Justin Walsh [place], [place] 01-02-2020 12:22-0500 Pulse (Heart Rate) 115 /min Justin Walsh [place], [place] 01-02-2020 12:22-0500 Pulse Oximetry 95 % Justincarolyn Walsh [facility], [place] 01-02-2020 12:22-0500 Respiratory Rate 16 /min Justincarolyn Walsh [place], [place] 01-02-2020 12:15-0500 BMI (Body Mass Index) 54.88 kg/m2 Justin Walsh [place], [place] 01-02-2020 12:15-0500 Body weight 154.22 kg Justincarolyn Walsh [place], [place] Comment on above: verbal, arrived in own WC, did not know exact weight of 01-02-2020 12:15-0500 Height 167.6 cm Justin Walsh [facility], [place] 06-27-2019 14:00-0400 BP Diastolic 74 mm[Hg] [facility] [place] 06-27-2019 14:00-0400 BP Systolic 123 mm[Hg] Davie [facility] 06-27-2019 02:01-0400 Pulse (Heart Rate) 90 /min [facility] [place] 06-27-2019 02:01-0400 Pulse Oximetry 100 % Davie [facility] 06-27-2019 02:01-0400 Respiratory Rate 17 /min [place] 06-26-2019 21:32-0400 BMI (Body Mass Index) 62.46 kg/m2 [place] 06-26-2019 21:32-0400 Body Temperature 98.01 [degF] [place] 06-26-2019 21:32-0400 Body weight 175.54 kg [place], [place] 06-26-2019 21:32-0400 Height 167.6 cm [place] 06-20-2019 15:37-0400 Body Temperature 100.09 [degF] [place] 06-20-2019 15:37-0400 BP Diastolic 76 mm[Hg] [place] 06-20-2019 15:37-0400 BP Systolic 117 mm[Hg] [place] 06-20-2019 15:37-0400 Pulse (Heart Rate) 107 /min [place] 06-20-2019 15:37-0400 Pulse Oximetry 94 % [place] 06-20-2019 15:37-0400 Respiratory Rate 22 /min [place] 06-19-2019 06:11-0400 BMI (Body Mass Index) 56.31 kg/m2 [place] 06-19-2019 06:11-0400 Body weight 158.26 kg [place] 06-14-2019 13:43-0400 Height 167.6 cm [place] Encounters Encounter Date Encounter Type Care Provider Facility Start: 07-10-2025 End: 07-11-2025 Emergency department patient visit Hermes Issa MD Work Phone: [facility] Comment on above: Acute nonintractable headache, unspecified headache type (Primary Dx); Nausea; Acute cystitis without hematuria; Hyperglycemia Start: 07-10-2025 ambulatory Jared Chung lity:[facility] Start: 07-06-2025 ambulatory Jared Guzman EDWARD Faci lity:[facility] Start: 07-04-2025 End: 07-11-2025 Telephone encounter Maria Eugenia Santos DIRECTOR OF COMMUNITY SERVICES - FPGA ENGINEER Work Phone: [facility] Comment on above: Diabetes (BGL) Start: 06-27-2025 End: 07-04-2025 Telephone encounter Maria Eugenia Santos DIRECTOR OF COMMUNITY SERVICES - FPGA ENGINEER Work Phone: [facility] Comment on above: Diabetes (BGL) Start: 06-19-2025 End: 06-26-2025 Telephone encounter Maria Eugenia Santos DIRECTOR OF COMMUNITY SERVICES - FPGA ENGINEER Work Phone: [facility] Comment on above: Diabetes (BGL) Start: 06-11-2025 ambulatory Jared Guzman EDWARD Faci lity:[facility] Start: 06-07-2025 End: 06-11-2025 Telephone encounter Kaushal Stall PA-C Work Phone: [facility] Comment on above: Diabetes (BGL) Start: 06-07-2025 End: 06-07-2025 ambulatory FARHAD CHAVEZ [facility] Start: 06-07-2025 End: 06-07-2025 Subsequent hospital visit by physician Farhad Chavez MD Work Phone: [facility] Endoscopy Start: 05-31-2025 End: 06-01-2025 Telephone encounter Kaushal Stall PA-C Work Phone: [facility] Comment on above: Diabetes (BGL) Care Coordination (E GD Colon reminder call) Start: 05-14-2025 End: 05-18-2025 Telephone encounter Kaushal Stall PA-C Work Phone: [facility] Comment on above: Advice Only (/) Start: 05-10-2025 ambulatory Jared Guzman EDWARD Faci lity:[facility] Start: 05-07-2025 End: 05-07-2025 Telephone encounter Kaushal Stall PA-C Work Phone: [facility] Comment on above: Diabetes (BGL) Start: 04-30-2025 End: 05-01-2025 Telephone encounter Kaushal LUZC Work Phone: [facility] Comment on above: Diabetes (BGL) Start: 04-17-2025 End: 04-17-2025 Telephone encounter Kaushal Schultz PA-C Work Phone: [facility] Comment on above: Diabetes Start: 04-06-2025 End: 04-06-2025 ambulatory [facility] Start: 04-06-2025 End: 04-06-2025 Office outpatient visit 25 minutes Kaushal LUZC Work Phone: [facility] Comment on above: Type 2 [...] 45.0 to 49.9 in adult; Microalbuminuria Start: 03-27-2025 End: 05-23-2025 Telephone encounter Lisa Lopes DIRECTOR OF COMMUNITY SERVICES - TELEPHOTO ENGINEER Work Phone: [facility] Comment on above: Missed Appointment ( Reschedule ); Diabetes (BGL) Start: 02-27-2025 End: 02-28-2025 Telephone encounter Lisa Lopes DIRECTOR OF COMMUNITY SERVICES - TELEPHOTO ENGINEER Work Phone: [facility] Comment on above: Diabetes (BGL) Start: 02-26-2025 End: 02-26-2025 ambulatory Jared Guzman [facility] Work Phone: Start: 02-26-2025 End: 02-26-2025 [facility] Start: 02-26-2025 Registered Referred Jared Guzman [facility] Start: 02-26-2025 End: 02-26-2025 ambulatory Jared LEON Facility:[facility] Start: 02-15-2025 End: 02-16-2025 Telephone encounter Margo Guerrero APRN - TELEPHOTO ENGINEER Work Phone: [facility] Comment on above: Diabetes (BGL) Start: 02-09-2025 End: 02-09-2025 Subsequent hospital visit by physician Alejandro Mandel APRN - TELEPHOTO ENGINEER Work Phone: [facility] Vascular Lab Comment on above: PAD (peripheral oh ry disease) (HCC) Start: 02-09-2025 End: 02-09-2025 [facility] Start: 02-08-2025 End: 02-08-2025 Telephone encounter Herber Ramos DIRECTOR OF COMMUNITY SERVICES - TELEPHOTO ENGINEER Work Phone: [facility] Comment on above: Results (CT chest wo IV contrast ) Start: 02-07-2025 End: 02-08-2025 Telephone encounter Margo Guerrero APRN - TELEPHOTO ENGINEER Work Phone: [facility] Comment on above: Diabetes (BGL) Start: 02-07-2025 End: 02-07-2025 ambulatory Jared LEON [facility] Work Phone: Start: 02-07-2025 End: 02-07-2025 Departed Referred Jared Guzman -[facility] [employer] Start: 02-07-2025 End: 02-07-2025 ambulatory Jared LEON Facility:[facility] Start: 02-01-2025 End: 02-01-2025 ambulatory [employer] [facility] rocket staff [facility] Start: 02-01-2025 End: 02-01-2025 Office outpatient new 30 minutes Alejandro Mandel DIRECTOR OF COMMUNITY SERVICES - TELEPHOTO ENGINEER Work Phone: [facility] Vascular Surgery [facility] Comment on above: PAD (peripheral oh ry disease) (HCC) (Primary Dx); Hx of AKA (above knee amputation), right (HCC); Lymphedema of left leg; Morbid obesity (HCC) Start: 01-29-2025 End: 01-31-2025 Telephone encounter Margo EBenji Guerrero DIRECTOR OF COMMUNITY SERVICES - TELEPHOTO ENGINEER Work Phone: [facility] Comment on above: Diabetes (BGL) Start: 01-15-2025 End: 01-22-2025 Telephone encounter Margo Guerrero DIRECTOR OF COMMUNITY SERVICES - TELEPHOTO ENGINEER Work Phone: [facility] Comment on above: Diabetes (BGL) Start: 01-01-2025 End: 01-02-2025 Telephone encounter Margo Guerrero DIRECTOR OF COMMUNITY SERVICES - TELEPHOTO ENGINEER Work Phone: [facility] Comment on above: Other (Lab results/B GL) Start: 01-01-2025 End: 01-01-2025 ambulatory MARGO PATI [facility] Start: 01-01-2025 End: 01-01-2025 Office outpatient visit 25 minutes Margo Guerrero DIRECTOR OF COMMUNITY SERVICES - TELEPHOTO ENGINEER Work Phone: [facility] Comment on above: Type 2 diabetes lee itus with hyperglycemia, with long-term current use of insulin (HCC) (Primary Dx); Type 2 diabetes mellitus with diabetic autonomic neuropathy, with long-term current use of insulin ([facility]); Microalbuminuria; Essential hypertension; Mixed hyperlipidemia; Class 3 severe obesity due to excess calories with serious comorbidity and body mass index (BMI) of 45.0 to 49.9 in adult (HCC) Start: 12-27-2024 End: 12-27-2024 ambulatory Jared LEON [facility] Work Phone: Start: 12-27-2024 End: 12-27-2024 Departed Referred Jared Guzman [facility] Start: 12-27-2024 End: 12-27-2024 ambulatory Jared LEON Facility:[facility] Start: 12-21-2024 End: 12-21-2024 Office outpatient new 45 minutes Wanda Johnson DIRECTOR OF COMMUNITY SERVICES - TELEPHOTO ENGINEER Work Phone: [facility] Gastroenterology [facility] Comment on above: Fecal occult blood t est positive (Primary Dx); History of anemia; Calculus of gallbladder without cholecystitis without obstruction; BMI 50.0-59.9, adult (HCC) Start: 12-21-2024 End: 12-21-2024 ambulatory WANDA JOHNSON [facility] Start: 12-20-2024 End: 12-26-2024 Telephone encounter Margo Sylvester CNP Work Phone: [facility] Comment on above: Diabetes (BGL) Start: 12-07-2024 End: 12-07-2024 Office outpatient visit 25 minutes Lilo Rizo MD Work Phone: [facility] Comment on above: Cholecystitis (Prima ry Dx); Morbid obesity (HCC); Class 3 severe obesity with serious comorbidity and body mass index (BMI) of 50.0 to 59.9 in adult, unspecified obesity type (HCC) Start: 12-07-2024 End: 12-07-2024 ambulatory LILO RIZO [facility] Start: 12-05-2024 End: 12-05-2024 ambulatory Jared Esteveschad LEON [facility] Work Phone: Start: 12-05-2024 End: 12-05-2024 Departed Referred Jared Guzman [facility] [employer] Start: 12-05-2024 Registered Referred Jared Guzman - [facility] [employer] [id number] Start: 12-05-2024 End: 12-05-2024 ambulatory Jared Guzman EDWARD Facility:[facility] Start: 11-30-2024 End: 12-01-2024 ambulatory JARED LINNLOLA [facility] Start: 11-30-2024 Registered Referred Jared Guzman - [place] [employer] Start: 11-22-2024 End: 11-22-2024 Telephone encounter Margo Sylvester CNP Work Phone: [facility] Start: 11-21-2024 End: 11-29-2024 Telephone encounter Margo Guerrero APRN - KRANTHI Work Phone: [facility] Comment on above: Diabetes (BGL) Start: 11-15-2024 End: 11-20-2024 Telephone encounter Margo Guerrero DIRECTOR OF COMMUNITY SERVICES - TELEPHOTO ENGINEER Work Phone: [facility] Comment on above: Diabetes (BGL) Start: 11-14-2024 End: 11-14-2024 Office outpatient visit 10 minutes Asuncion Valencia DIRECTOR OF COMMUNITY SERVICES - TELEPHOTO ENGINEER Work Phone: [facility] Comment on above: Cholecystitis (Prima ry Dx) Start: 11-14-2024 End: 11-14-2024 ambulatory [facility] Start: 11-13-2024 End: 11-14-2024 Telephone encounter Josie Powell RN [facility] Lung No dule [facility] Comment on above: Care Coordination (E D Nuance Lung Nodule ) Start: 11-12-2024 End: 11-13-2024 Emergency department patient visit Virgil Mederos MD Work Phone: [facility] Comment on above: History of cholecyst itis (Primary Dx) Start: 11-10-2024 End: 11-10-2024 ambulatory [facility] Start: 11-10-2024 End: 11-10-2024 Office outpatient visit 15 minutes Asuncion Erik DIRECTOR OF COMMUNITY SERVICES - TELEPHOTO ENGINEER Work Phone: [facility] Comment on above: Cholecystitis (Prima ry Dx) Start: 11-10-2024 End: 11-10-2024 Departed Referred Jared Guzman [employer] Start: 11-10-2024 End: 11-10-2024 ambulatory Jared LEON Facility:[facility] Start: 10-30-2024 End: 10-30-2024 Telephone encounter Анна Salome DIRECTOR OF COMMUNITY SERVICES - TELEPHOTO ENGINEER Work Phone: [facility] Comment on above: Diabetes (BGL) Start: 10-30-2024 End: 10-30-2024 Departed Referred Jared Guzman [employer] Start: 10-30-2024 End: 10-30-2024 ambulatory Jared LEON Facility:[facility] Start: 10-24-2024 End: 10-24-2024 Emergency department patient visit Vicente Mixon MD Work Phone: [facility] Comment on above: Hypoglycemic episode in patient with diabetes mellitus (HCC) (Primary Dx) Start: 10-19-2024 End: 10-20-2024 Telephone encounter Lisa Lopes DIRECTOR OF COMMUNITY SERVICES - TELEPHOTO ENGINEER Work Phone: [facility] Start: 10-18-2024 End: 10-23-2024 Evaluation and management of inpatient Dontrell Woodall DO Work Phone: [facility] Medical Surgical Unit MSU 4S Comment on above: Acute cholecystitis (Primary Dx) Start: 09-22-2024 End: 09-22-2024 Departed Referred Jared Guzman [facility] Start: 09-22-2024 End: 09-22-2024 ambulatory Jared LEON Facility:[facility] Start: 09-19-2024 End: 09-20-2024 Telephone encounter Geronimo Lee MD Work Phone: [facility] Comment on above: Diabetes (BGL) Start: 09-12-2024 End: 09-12-2024 ambulatory Jared LEON Facility:[facility] Start: 09-11-2024 End: 09-12-2024 Telephone encounter Geronimo Lee MD Work Phone: [facility] Comment on above: Diabetes (BGL) Start: 09-11-2024 End: 09-11-2024 ambulatory Jared LEON Facility:[facility] Start: 08-08-2024 End: 08-09-2024 Telephone encounter Geronimo Lee MD Work Phone: [facility] Comment on above: Diabetes (BGL) Start: 08-03-2024 End: 08-08-2024 Telephone encounter Geronimo Lee MD Work Phone: [facility] Comment on above: Diabetes (BGL) Start: 08-02-2024 End: 08-02-2024 ambulatory Jared LEON Facility:[facility] Start: 07-17-2024 End: 07-18-2024 Telephone encounter Geronimo Lee MD Work Phone: [facility] Comment on above: Diabetes (BGL) Start: 07-17-2024 ambulatory Jared Esperanzalola whitteny:[facility] Start: 05-02-2024 End: 05-02-2024 Telephone encounter Ryan Wyatt MA [facility] Endocrinology Start: 02-22-2024 Telephone encounter Geronimo ryan MD Work Phone: [facility] Endocrinology Comment on above: Diabetes (BGL) Start: 02-11-2024 End: 05-12-2024 Transcribe Orders Herber Richard DIRECTOR OF COMMUNITY SERVICES youcalc Work Phone: [facility] Central Scheduling Comment on above: Solitary pulmonary n odule (Primary Dx) Start: 02-11-2024 End: 02-11-2024 Office outpatient visit 15 minutes Herber Richard DIRECTOR OF COMMUNITY SERVICES [employer] Work Phone: [facility] Pulmonary Care Comment on above: Lung nodule (Primary Dx); JOHN (obstructive sleep apnea); Morbid obesity with BMI of 45.0-49.9, adult (HCC) Start: 01-27-2024 End: 01-28-2024 Emergency department patient visit Fermin Melchor DO Work Phone: [facility] Comment on above: Hypoglycemia (Primar y Dx) Start: 01-26-2024 End: 01-27-2024 Emergency department patient visit Art Zeng DO Work Phone: [facility] Comment on above: Hypoglycemia (Primar y Dx) Start: 01-22-2024 End: 01-22-2024 Emergency department patient visit Jaquan Morris DO Work Phone: [facility] Comment on above: Nausea and vomiting, unspecified vomiting type (Primary Dx); Cystitis Start: 01-20-2024 Telephone encounter Geronimo ryan MD Work Phone: [facility] Clinical Communication Comment on above: Appointment Start: 01-20-2024 End: 01-20-2024 ambulatory [facility] Work Phone: Start: 01-20-2024 End: 01-20-2024 Departed Referred [facility] Start: 01-20-2024 Registered Referred [facility] Start: 01-19-2024 Telephone encounter Geronimo ryan MD Work Phone: [facility] Endocrinology Comment on above: Diabetes (BGL) Start: 01-17-2024 End: 01-17-2024 ambulatory [facility] Work Phone: Start: 01-17-2024 End: 01-17-2024 Departed Referred [facility] Start: 01-17-2024 Registered Referred [facility] Start: 01-13-2024 End: 01-13-2024 ambulatory [facility] Work Phone: Start: 01-13-2024 End: 01-13-2024 Departed Referred [facility] Start: 01-13-2024 Registered Referred [facility] Start: 01-03-2024 Telephone encounter Josie Dean [facility] Pulmonary and Sleep Medicine Comment on above: Care Coordination (E D Amilcar Lung Nodule ) Start: 12-31-2023 End: 12-31-2023 ambulatory [facility] Work Phone: Start: 12-31-2023 End: 12-31-2023 Departed Referred [facility] Start: 12-30-2023 End: 12-30-2023 ambulatory [facility] Work Phone: Start: 12-30-2023 End: 12-30-2023 Departed Referred [facility] Start: 12-30-2023 Registered Referred [facility] Start: 12-28-2023 End: 12-29-2023 Emergency department patient visit Edwin Bustos MD Work Phone: [facility] Comment on above: Nausea and vomiting, unspecified vomiting type (Primary Dx) Start: 12-28-2023 Telephone encounter Geronimo ryan MD Work Phone: [facility] Endocrinology Comment on above: Diabetes (BGL) Start: 12-23-2023 End: 12-23-2023 Subsequent hospital visit by physician Elda Reaves (Pa) Work Phone: [facility] Nuclear Medicine Comment on above: Nausea with vomiting , unspecified Start: 12-22-2023 End: 12-22-2023 ambulatory [facility] Work Phone: Start: 12-22-2023 End: 12-22-2023 Departed Referred [facility] Start: 12-22-2023 Registered Referred [facility] Start: 12-13-2023 ambulatory Leonela Calix RN [facility] Clinical Communication Start: 12-13-2023 Patient encounter procedure Leonela Calix RN [facility] Clinical Communication Start: 12-09-2023 End: 12-09-2023 Emergency department patient visit Caridad Evans MD Work Phone: [facility] Comment on above: Nausea vomiting and diarrhea (Primary Dx); Dehydration Start: 12-06-2023 Telephone encounter Geronimo ryan MD Work Phone: [facility] Endocrinology Comment on above: Diabetes (BGL) Start: 11-24-2023 Transcribe Monique Reaves (Pa) Work Phone: [facility] Central Scheduling Comment on above: Nausea with vomiting , unspecified (Primary Dx) Start: 11-23-2023 Telephone encounter Geronimo ryan MD Work Phone: [facility] Endocrinology Comment on above: Diabetes (BGL) Start: 11-23-2023 End: 11-23-2023 ambulatory [facility] Work Phone: Start: 11-23-2023 End: 11-23-2023 Departed Referred [facility] Start: 11-18-2023 End: 11-18-2023 ambulatory [facility] Work Phone: Start: 11-18-2023 End: 11-18-2023 Departed Referred [facility] Start: 11-18-2023 Registered Referred [facility] Start: 11-17-2023 End: 11-17-2023 ambulatory SARBJIT GARNER Facility:[facility] Start: 11-09-2023 Telephone encounter Geronimo ryan MD Work Phone: [facility] Endocrinology Comment on above: Advice Only Start: 10-27-2023 End: 10-27-2023 Office outpatient visit 25 minutes Geronimo Lee MD Work Phone: [facility] Endocrinology Comment on above: Type 2 diabetes lee itus with hyperglycemia, with long-term current use of insulin (HCC) (Primary Dx); Mixed hyperlipidemia; Primary hypertension Start: 10-26-2023 End: 10-26-2023 ambulatory [facility] Work Phone: Start: 10-26-2023 End: 10-26-2023 Departed Referred [facility] Start: 10-07-2023 End: 10-07-2023 Subsequent hospital visit by physician [facility] Exam Room [address] [facility] [address] Comment on above: Arrived Start: 10-07-2023 End: 10-17-2023 Evaluation and management of inpatient Rosaura Mustafa DO Work Phone: [facility] Cardiac Post Intervention Progressive Care Unit CPI PCU 4W Start: 09-20-2023 Telephone encounter Geronimo ryan MD Work Phone: [facility] Endocrinology Comment on above: Diabetes (BGL) Start: 09-20-2023 End: 09-20-2023 Departed Referred [facility] Start: 08-30-2023 Telephone encounter Geronimo ryan MD Work Phone: [facility] Endocrinology Comment on above: Diabetes (BGL) Start: 08-17-2023 End: 08-19-2023 Emergency department patient visit Aaron Burgos DO Work Phone: [facility] Medical Surgical Unit MSU 1E Comment on above: Upper abdominal pain (Primary Dx); Hypoglycemia Start: 08-17-2023 End: 08-17-2023 ambulatory [facility] Work Phone: Start: 08-17-2023 End: 08-17-2023 Departed Referred [facility] Start: 08-11-2023 Telephone encounter Geronimo ryan MD Work Phone: [facility] Endocrinology Comment on above: Diabetes (BGL) Start: 08-08-2023 End: 08-08-2023 Emergency department patient visit Gayle Trevizo MD Work Phone: [facility] Comment on above: Pyelonephritis (Prim valeria Dx); Upper abdominal pain; Nausea Start: 08-04-2023 End: 08-04-2023 [facility] Work Phone: Start: 08-04-2023 End: 08-04-2023 Departed Referred [facility] Start: 08-02-2023 End: 08-02-2023 Departed Referred [facility] Start: 08-02-2023 Registered Referred [facility] Start: 07-05-2023 Telephone encounter Geronimo ryan MD Work Phone: [facility] Endocrinology Comment on above: Care Coordination (E D Nuance Lung Nodule ) Care Coordination (E D Nuance Lung Nodule/Resp consult for lung nodule) Start: 07-05-2023 End: 07-05-2023 [facility] Work Phone: Start: 07-05-2023 End: 07-05-2023 Departed Referred [facility] Start: 06-29-2023 End: 06-29-2023 Evaluation and management of inpatient Art Palmer MD Work Phone: [facility] Endoscopy Start: 06-28-2023 End: 07-01-2023 Emergency department patient visit Rosaura Mustafa DO Work Phone: [facility] 2E TELEMETRY Comment on above: Chest pain, unspecif ied type (Primary Dx) Start: 06-22-2023 Telephone encounter Geronimo ryan MD Work Phone: [facility] Endocrinology Comment on above: Diabetes (BGL) Start: 05-31-2023 End: 05-31-2023 Departed Referred [facility] Start: 05-31-2023 Registered Referred [facility] Start: 05-17-2023 Telephone encounter Geronimo ryan MD Work Phone: [facility] Endocrinology Comment on above: Diabetes (BGL) Start: 05-05-2023 Telephone encounter Geronimo ryan MD Work Phone: [facility] Endocrinology Comment on above: Diabetes (BGL) Start: 04-19-2023 End: 04-19-2023 ambulatory [facility] Work Phone: Start: 04-19-2023 End: 04-19-2023 Departed Referred [facility] Start: 03-30-2023 End: 03-30-2023 ambulatory [facility] Work Phone: Start: 03-30-2023 End: 03-30-2023 Departed Referred [facility] Start: 03-15-2023 End: 03-15-2023 Departed Referred [facility] Start: 03-08-2023 End: 03-08-2023 Emergency department patient visit Karlos Osborn DO Work Phone: [facility] Comment on above: Abdominal pain, gene ralized (Primary Dx); Gastroparesis Start: 02-25-2023 Telephone encounter Geronimo ryan MD Work Phone: [facility] Endocrinology Comment on above: Diabetes (BGL) Start: 02-09-2023 End: 02-09-2023 Office outpatient visit 25 minutes Geronimo Lee MD Work Phone: [facility] Endocrinology Comment on above: Type 2 diabetes lee itus with hyperglycemia, with long-term current use of insulin (CMS/HCC) (HCC) (Primary Dx); Mixed hyperlipidemia; Primary hypertension Start: 01-26-2023 Transcribe Orders Jared moyer Work Phone: [facility] Physician Referral Service Start: 01-13-2023 End: 01-13-2023 ambulatory [facility] Work Phone: Start: 01-13-2023 End: 01-13-2023 Departed Referred [facility] [employer] Start: 12-02-2022 End: 12-02-2022 ambulatory [facility] Work Phone: Start: 12-02-2022 End: 12-02-2022 Departed Referred [facility] [employer] Start: 10-27-2022 End: 10-27-2022 ambulatory [facility] Work Phone: Start: 10-27-2022 End: 10-27-2022 Departed Referred [facility] [employer] Start: 06-24-2022 End: 06-24-2022 ambulatory [facility] Work Phone: Start: 06-24-2022 End: 06-24-2022 Departed Referred [facility] [employer] Start: 05-25-2022 End: 05-25-2022 Departed Referred [facility] [employer] Start: 04-27-2022 End: 04-27-[address] [facility] [employer] Start: 04-13-2022 End: 04-13-2022 Departed Referred [facility] [employer] Start: 04-13-2022 [facility] [employer] Start: 03-02-2022 End: 03-02-2022 Departed Referred [facility] [employer] Start: 01-29-2022 End: 01-29-2022 Departed Referred [facility] Triage [facility] Start: 01-29-2022 Registered Referred [facility] Triage [facility] Start: 01-19-2022 End: 01-19-2022 Departed Referred [facility] Triage [facility] Start: 01-19-2022 Registered Referred [facility] Triage [facility] Start: 12-08-2020 End: 12-08-2020 Emergency department patient visit Art Zeng Work Phone: [facility] Comment on above: Bacterial urinary in fection (Primary Dx); Non-intractable vomiting with nausea, unspecified vomiting type; Abdominal pain, unspecified abdominal location Start: 11-22-2020 End: 11-28-2020 Evaluation and management of inpatient Joel Nelson Work Phone: [facility] 7E Oncology Comment on above: Hypoglycemia (Primar y Dx); Nausea Start: 09-17-2020 End: 09-30-2020 Evaluation and management of inpatient Art Zeng Work Phone: [facility] 2E TELEMETRY Comment on above: Ileus (HCC) (Primary Dx); Nausea and vomiting, intractability of vomiting not specified, unspecified vomiting type; Generalized abdominal pain Start: 01-02-2020 End: 01-02-2020 Subsequent hospital visit by physician Justin Walsh Work Phone: [facility] Pre-Admit Testing Comment on above: Arrived Start: 06-26-2019 End: 06-27-2019 Emergency department patient visit Davie Blank Work Phone: [facility] Comment on above: Amputation stump inf ection (HCC) (Primary Dx) Start: 06-14-2019 End: 06-20-2019 Evaluation and management of inpatient Dom Ortiz Work Phone: [facility] H6 TELEMETRY Comment on above: Diabetic foot infect ion (HCC) (Primary Dx); Lactic acidosis; Morbid obesity (HCC) Start: 01-03-2019 End: 01-03-2019 Patient encounter procedure JAYSON [facility] Start: 12-27-2018 End: 12-27-2018 Patient encounter procedure KYLAH [facility] Start: 07-12-2018 End: 07-12-2018 Patient encounter procedure [facility] Start: 06-28-2018 End: 06-28-2018 Patient encounter procedure [facility] Start: 06-14-2018 End: 06-14-2018 Patient encounter procedure [facility] Start: 05-04-2018 Ambulatory Kylah Pinedai [facility] Start: 04-28-2018 End: 05-06-2018 Evaluation and management of inpatient SARBJIT Bah [facility] Start: 03-18-2018 Ambulatory [facility] Start: 03-15-2018 End: 03-21-2018 Evaluation and management of inpatient [facility] Start: 02-02-2018 End: 02-08-2018 Evaluation and management of inpatient [facility] Procedures Date Procedure Procedure Detail Performing Clinician Start: 07-10-2025 Assay of troponin quantitative Toi Portillo cary PA-C Work Phone: Start: 07-10-2025 Urnls dip stick/tablet reagent auto microscopy Toi Douglas PA-C Work Phone: Start: 07-10-2025 Ct abdomen & pelvis w/contrast material Toi Douglas PA-C Work Phone: Start: 07-10-2025 Blood gases any combination ph pco2 po2 co2 hco3 Toi Douglas PA-C Work Phone: Start: 07-10-2025 Comprehensive metabolic panel Toi Grid er PA-C Work Phone: Start: 07-10-2025 Ecg routine ecg w/least 12 lds trcg only w/o i&r Toi Douglas PA-C Work Phone: Start: 06-07-2025 Colonoscopy Farhad Chavez MD Work Phone: Start: 04-06-2025 Hemoglobin glycosylated a1c Kaushal Schultz PA-C Work Phone: Start: 04-06-2025 Follow-up visit JARED GUZMAN Start: 02-26-2025 Serum inorganic phosphate measurement Jared LEON Start: 02-09-2025 Non-invasive physiologic study extremity 3 niki Mandel DIRECTOR OF COMMUNITY SERVICES - TELEPHOTO ENGINEER Work Phone: Start: 02-01-2025 Follow-up visit JARED GUZMAN Start: 01-01-2025 Follow-up visit JARED GUZMAN Start: 12-27-2024 Measurement of renal function Jared LEON Comment on above: GFR Calc Start: 12-21-2024 Follow-up visit JARED GUZMAN Start: 12-07-2024 Follow-up visit JARED GUZMAN Start: 11-14-2024 Follow-up visit JARED GUZMAN Start: 11-12-2024 Basic metabolic panel calcium total Ramesy Apodaca DIRECTOR OF COMMUNITY SERVICES - TELEPHOTO ENGINEER Work Phone: Start: 11-12-2024 Ct abdomen & pelvis w/o contrast material Ramsey Carleen DIRECTOR OF COMMUNITY SERVICES - TELEPHOTO ENGINEER Work Phone: Start: 11-10-2024 Urine culture Jared LEON Start: 11-10-2024 Follow-up visit Follow-up ASUNCION VALENCIA Start: 10-24-2024 Urinalysis complete panel - Urine [...] Culture bacterial any source anaerobic iso&id Deborah Gent PA Work Phone: Start: 10-19-2024 Prothrombin time [...] Culture bacterial quanttative colony count urine Dontrell Glozman DO Work Phone: Start: 10-18-2024 Urinalysis complete panel - Urine Grace leavitt MD Work Phone: Start: 10-18-2024 End: 10-18-2024 Assay of lactate Grace Ackerman MD Work Phone: Start: 10-18-2024 Us abdominal real time w/image limited Dontrell Glozman DO Work Phone: Start: 10-18-2024 Assay of troponin quantitative Dontrell Anais zman DO Work Phone: Start: 10-18-2024 Ct abdomen [...] 12-28-2023 Basic metabolic panel calcium total Ramsey R Rice DO Work Phone: Start: 12-28-2023 Ecg routine [...] Glucose quantitative blood xcpt reagent strip Marcio Armanod MD Work Phone: Start: 10-16-2023 Glucose quantitative [...] 10-15-2023 POCT GLUCOSE METER UNSOLICITED RESULTS Marcio Aramndo MD Work Phone: Start: 10-14-2023 Glucose quantitative [...] 10-09-2023 Drug screen quantitative vancomycin Rachael Robertson DIRECTOR OF COMMUNITY SERVICES - TELEPHOTO ENGINEER Work Phone: Start: 10-09-2023 End: 10-09-2023 Hemoglobin [...] abdomen & pelvis w/contrast material Rachael Robertson DIRECTOR OF COMMUNITY SERVICES - TELEPHOTO ENGINEER Work Phone: Start: 10-08-2023 Glucose quantitative blood xcpt reagent strip Mayda Olmstead MD Work Phone: Start: 10-08-2023 Basic metabolic panel calcium total Rachael Robertson DIRECTOR OF COMMUNITY SERVICES - TELEPHOTO ENGINEER Work Phone: Start: 10-07-2023 Glucose quantitative blood xcpt reagent strip Ricardo Spring MD Work Phone: Start: 10-07-2023 Procalcitonin (pct) Rachael Robertson DIRECTOR OF COMMUNITY SERVICES - TELEPHOTO ENGINEER Work Phone: Start: 10-07-2023 Glucose quantitative blood xcpt reagent strip Ricardo Spring MD Work Phone: Start: 10-07-2023 End: 10-07-2023 Glucose quantitative blood xcpt reagent strip Rosaura Mustafa DO Work Phone: Start: 10-07-2023 Culture bacterial quanttative colony count urine Roasura Mustafa DO Work Phone: Start: 10-07-2023 Drug tst prsmv instrmnt chem analyzers pr date Rachael Robertson DIRECTOR OF COMMUNITY SERVICES - TELEPHOTO ENGINEER Work Phone: Start: 10-07-2023 Urinalysis complete panel [...] 10-07-2023 Radiologic exam chest single view Giuseppe Mustafa DO Work Phone: Start: 10-07-2023 Ct head/brain w/o contrast material Rosaura Mustafa DO Work Phone: Start: 10-07-2023 Bacteria identified in Blood by Culture Rosaura Mustafa DO Work Phone: Start: 10-07-2023 End: 10-07-2023 Comprehensive metabolic panel Rosaura Horace marr DO Work Phone: Start: 10-07-2023 Drug test def 1-7 classes Rachael Herman son DIRECTOR OF COMMUNITY SERVICES - TELEPHOTO ENGINEER Work Phone: Start: 08-19-2023 Glucose quantitative blood [...] 08-17-2023 Urinalysis complete panel - Urine Aaron A Gombash DO Work Phone: Start: 08-17-2023 Urnls dip [...] 08-08-2023 Radiologic exam chest single view Ezio Constantino Kelley DO Work Phone: Start: 08-08-2023 Ecg routine ecg w/least 12 lds trcg only w/o i&r Ezio Constantino Kelley DO Work Phone: Start: 08-08-2023 Blood gases any combination ph pco2 po2 co2 hco3 Gayle Trevizo MD Work Phone: Start: 08-08-2023 End: 08-08-2023 Basic metabolic panel calcium total Ezio Constantino Kelley DO Work Phone: Start: 07-01-2023 Glucose quantitative blood xcpt reagent strip Nabil Hill DO Work Phone: Start: 07-01-2023 Glucose quantitative [...] End: 06-28-2023 Assay of troponin quantitative Nabil M Es terle DO Work Phone: Start: 06-28-2023 Glucose quantitative blood xcpt reagent strip Ramsey Mc MD Work Phone: Start: 06-28-2023 Ct angiography chest w/contrast/noncontrast Rosaura Mustafa DO Work Phone: Start: 06-28-2023 Radiologic exam chest single view Giuseppe Mustafa DO Work Phone: Start: 06-28-2023 Basic metabolic panel calcium total Rosaura Mustafa DO Work Phone: Start: 06-28-2023 Ecg routine ecg w/least 12 lds trcg only w/o i&r Rosaura Mustafa DO Work Phone: Start: 03-08-2023 Ct abdomen & pelvis w/o contrast material Jocelyn Santos MD Work Phone: Start: 03-08-2023 End: 03-08-2023 Comprehensive metabolic panel Jocelyn perez MD Work Phone: Start: 02-09-2023 Lipid 1996 panel - Serum or Plasma Geronimo Lee MD Work Phone: Start: 12-08-2020 Ecg routine ecg w/least 12 lds w/i&r Art Escobar [employer] Work Phone: Start: 12-08-2020 Urnls dip stick/tablet rgnt auto w/o microscopy Art Peraltakemi Work Phone: Start: 12-08-2020 Us abdominal real time w/image limited Art Escobar [employer] Work Phone: Start: 12-08-2020 Radiologic exam chest single view Michae elijah Escobar [employer] Work Phone: Start: 12-08-2020 Assay of lipase Art Peraltakemi Work Phone: Start: 12-08-2020 Assay of troponin quantitative Art Peraltakemi Work Phone: Start: 12-08-2020 Blood count complete auto&auto difrntl wbc Art Escobar [employer] Work Phone: Start: 12-08-2020 Comprehensive metabolic panel Art Zeng Work Phone: Start: 11-28-2020 Gluc bld gluc mntr dev cleared fda spec home use Gabo A Estrada Work Phone: Start: 11-28-2020 Gluc bld gluc mntr dev cleared fda spec home use Gabo A Estrada Work Phone: Start: 11-28-2020 Radiologic exam abdomen 1 view Mhd Wildale d Almoselli Work Phone: Start: 11-28-2020 Gluc bld gluc [...] Start: 11-27-2020 Radiologic exam abdomen 1 view d Teddy acevedo Laszlo Systemschelse[employer] Work Phone: Start: 11-27-2020 Gluc bld gluc [...] routine ecg w/least 12 lds w/i&r Gabo A Estrada Work Phone: Start: 11-26-2020 Gluc bld gluc mntr dev cleared fda spec home use Gabo Estrada Work Phone: Start: 11-26-2020 Glucose quantitative blood xcpt reagent strip Gabo Estrada Work Phone: Start: 11-26-2020 OPERATIVE REPORT 3m Scanning Start: 11-26-2020 Gluc bld gluc mntr dev cleared fda spec home use Gabo Estrada Work Phone: Start: 11-26-2020 Level iv surg pathology gross&microscopic exam Virgil Kelley Rolando Work Phone: Start: 11-26-2020 Gluc bld gluc [...] 11-25-2020 Radiologic exam abdomen 1 view Art Kelley bethany Stapleton Work Phone: Start: 11-25-2020 Gluc bld gluc mntr dev cleared fda spec home use Art Stapleton Work Phone: Start: 11-25-2020 Us transvaginal Jakob C Frances Work Phone: Start: 11-25-2020 Gluc bld gluc mntr dev cleared fda spec home use Art Stapleton Work Phone: Start: 11-25-2020 Blood count complete auto&auto difrntl wbc Kylah Chandlerbull Work Phone: Start: 11-25-2020 End: 11-26-2020 Comprehensive metabolic panel Leonela Guerrero Work Phone: Start: 11-24-2020 Assay of troponin quantitative Kylah robles Work Phone: Start: 11-24-2020 Gluc bld gluc mntr dev cleared fda spec home use Art Gonzalesanco Work Phone: Start: 11-24-2020 Assay of troponin quantitative Kylah robles Work Phone: Start: 11-24-2020 Gluc bld gluc mntr dev cleared fda spec home use Art Alonzomarcia Stapleton Work Phone: Start: 11-24-2020 Assay of troponin quantitative Kylah robles Work Phone: Start: 11-24-2020 Comprehensive metabolic panel Kylah marks Work Phone: Start: 11-24-2020 Ecg routine ecg w/least 12 lds w/i&r Kylah David Work Phone: Start: 11-24-2020 End: 11-24-2020 Gluc bld gluc mntr dev cleared fda spec home use Art Alonzomarcia Stapleton Work Phone: Start: 11-24-2020 Blood count [...] Phone: Start: 11-22-2020 Assay of troponin quantitative Jole Nelson Work Phone: Start: 11-22-2020 Basic metabolic [...] Ecg routine ecg w/least 12 lds w/i&r Joel Nelson Work Phone: Start: 09-30-2020 Gluc bld [...] Esterle Work Phone: Start: 09-27-2020 COVID-19 Art Joneso Work Phone: Start: 09-27-2020 Gluc bld gluc [...] Phone: Start: 09-26-2020 Comprehensive metabolic panel Nabil Mane Est erle Work Phone: Start: 09-26-2020 Blood [...] 09-25-2020 Radiologic exam abdomen 1 view Nabil Mane Es terle Work Phone: Start: 09-25-2020 Gluc bld gluc mntr dev cleared fda spec home use Nabil M Esterle Work Phone: Start: 09-25-2020 Gluc bld gluc mntr dev cleared fda spec home use Nabil M Esterle Work Phone: Start: 09-24-2020 Gluc bld gluc mntr dev cleared fda spec home use Nabil M Esterle Work Phone: Start: 09-24-2020 Gluc bld gluc mntr dev cleared fda spec home use Art Zeng Work Phone: Start: 09-24-2020 Assay of magnesium Priyank Gabriel Work Phone: Start: 09-24-2020 Assay of troponin quantitative Priyank Francesco eem Work Phone: Start: 09-24-2020 Gluc bld gluc mntr dev cleared fda spec home use Nabil M Esterle Work Phone: Start: 09-24-2020 Radiologic exam abdomen 1 view Nabil Gilliam Es terle Work Phone: Start: 09-24-2020 Blood count complete auto&auto difrntl wbc Nabil M Esterle Work Phone: Start: 09-24-2020 Comprehensive metabolic panel Nabil M Est erle Work Phone: Start: 09-24-2020 Gluc [...] Phone: Start: 09-23-2020 Comprehensive metabolic panel Kylah marks Work Phone: Start: 09-22-2020 Gluc bld gluc [...] use Nabil M Esterle Work Phone: Start: 09-20-2020 Gluc bld gluc mntr dev cleared fda spec home use Nabil M Esterle Work Phone: Start: 09-20-2020 Gluc bld gluc mntr dev cleared fda spec home use Nabil Hill Work Phone: Start: 09-20-2020 Gluc bld gluc mntr dev cleared fda spec home use Art Zeng Work Phone: Start: 09-20-2020 Radiologic exam abdomen 1 view Nabil lewis Work Phone: Start: 09-20-2020 Gluc bld gluc mntr dev cleared fda spec home use Art Escobar [employer] Work Phone: Start: 09-20-2020 Basic metabolic panel calcium total Nabil Hill Work Phone: Start: 09-19-2020 Gluc bld gluc mntr dev cleared fda spec home use Art PearltaTendr Work Phone: Start: 09-19-2020 Gluc bld gluc mntr dev cleared fda spec home use Art Escobar [employer] Work Phone: Start: 09-19-2020 HM ENDOSCOPY REPORT 3m Scanning Start: 09-19-2020 Level iv surg pathology gross&microscopic exam Sergio Mcintyreleathalinda Work Phone: Start: 09-19-2020 Gluc bld gluc mntr dev cleared fda spec home use Art Peraltakemi Work Phone: Start: 09-19-2020 Radiologic exam abdomen 1 view Kylah robles Work Phone: Start: 09-19-2020 Gluc bld gluc mntr dev cleared fda spec home use Art PeraltaTendr Work Phone: Start: 09-19-2020 Blood count complete auto&auto difrntl wbc Kylah David Work Phone: Start: 09-19-2020 Comprehensive metabolic panel Kylah marks Work Phone: Start: 09-19-2020 MANUAL DIFFERENTIAL Kylah David Work Phone: Start: 09-18-2020 Gluc bld gluc mntr dev cleared fda spec home use Art Escobar [employer] Work Phone: Start: 09-18-2020 End: 09-18-2020 Gluc bld gluc mntr dev cleared fda spec home use Art Zeng Work Phone: Start: 09-18-2020 Basic metabolic panel calcium total Kylah David Work Phone: Start: 09-18-2020 Gluc bld gluc mntr dev cleared fda spec home use Art Zeng Work Phone: Start: 09-18-2020 Radiologic exam abdomen 1 view Nabil lewis Work Phone: Start: 09-18-2020 Gluc bld gluc [...] Phone: Start: 09-17-2020 Comprehensive metabolic panel Art Zeng Work Phone: Start: 09-17-2020 MANUAL DIFFERENTIAL Art Zeng Work Phone: Start: 09-17-2020 Ecg routine ecg w/least 12 lds w/i&r Art Zeng Work Phone: Start: 08-29-2020 Lipid 1996 panel [...] Start: 06-26-2019 Blood typing serologic abo Kaci sprague Work Phone: Start: 06-26-2019 C-reactive protein Kaci Elliott Work Phone: Start: 06-26-2019 Comprehensive metabolic panel Kaci Garcia teresacelestine Work Phone: Start: 06-26-2019 RBC morphology finding [...] 06-19-2019 Blood count complete auto&auto difrntl wbc Jarek Katz Work Phone: Start: 06-19-2019 Procalcitonin (pct) Jarek Katz Work Phone: Start: 06-18-2019 Gluc bld gluc mntr dev cleared fda spec home use Jayesh Jordan Work Phone: Start: 06-18-2019 Gluc bld gluc mntr dev cleared fda spec home use Dom R [employer] Work Phone: Start: 06-18-2019 Gluc bld gluc [...] use Jayesh Jordan Work Phone: Start: 06-16-2019 Level iv surg pathology gross&microscopic exam Sergio Villafuerte Renetta Work Phone: Start: 06-16-2019 Gluc bld gluc mntr dev cleared fda spec home use Dom R Ortiz Work Phone: Start: 06-16-2019 Gluc bld gluc mntr dev cleared fda spec home use Dom R Ortiz Work Phone: Start: 06-16-2019 Albumin serum plasma/whole blood Jarek Marcel waldroprachel Work Phone: Start: 06-16-2019 Hemoglobin glycosylated a1c Jarek dean Work Phone: Start: 06-16-2019 Gluc bld gluc mntr dev cleared fda spec home use Jayesh Jordan Work Phone: Start: 06-16-2019 Gluc bld gluc mntr dev cleared fda spec home use Jayesh Jordan Work Phone: Start: 06-16-2019 Blood count complete automated Jayesh rodriguez Work Phone: Start: 06-16-2019 Blood count complete auto&auto difrntl wbc Jarek Katz Work Phone: Start: 06-16-2019 Blood count complete automated Jarek santos Work Phone: Start: 06-16-2019 Drug screen quantitative vancomycin Keily N Van Work Phone: Start: 06-15-2019 Gluc bld gluc mntr dev cleared fda spec home use Dom R Ortiz Work Phone: Start: 06-15-2019 Gluc bld gluc mntr dev cleared fda spec home use Dom R Ortiz Work Phone: Start: 06-15-2019 Gluc bld gluc [...] Start: 06-15-2019 Blood count complete automated Jarek santos Work Phone: Start: 06-14-2019 Radiologic examination femur [...] 06-14-2019 Radex foot complete minimum 3 views Domsade Cardenaso Work Phone: Start: 06-14-2019 ADD ON LAB TEST Dom R Ortiz Work Phone: Start: 06-14-2019 End: 06-14-2019 [...] 06-14-2019 Culture bacterial any source anaerobic iso&id Jayeshjermaine Harleyradha Work Phone: Start: 06-14-2019 Culture bacterial blood aerobic w/id isolates Jayesh Harleyradha Work Phone: Start: 05-04-2018 Detachment at Right [...] for Adults (1 - 1-dose 75+ series) [facility] Start: 06-07-2035 Screening for malignant neoplasm of colon [facility] Start: 2026 RSV Immunization aged 60 or older (1 - 1-dose 60+ series) RSV Immunization aged 60 or older (1 - 1-dose 60+ series) [facility] Start: 2026 [facility] Start: 07-10-2026 Diabetes: Estimated Glomerular Filtration Rate for Kidney Health Diabetes: Estimated Glomerular Filtration Rate for Kidney Health [facility] Start: 04-19-2026 Glaucoma screening Diabetes: Retinopathy Screening [facility] Start: 04-06-2026 Hemoglobin A1c measurement Diabetes: Hemoglobin A1C [facility] Start: 03-27-2026 Diabetic foot examination Diabetes: Foot Exam [facility] Start: 01-01-2026 Diabetic foot examination Diabetes: Foot Exam [facility] Start: 12-01-2025 Diabetes: Estimated Glomerular Filtration Rate for Kidney Health Diabetes: Estimated Glomerular Filtration Rate for Kidney Health [facility] Start: 11-12-2025 Diabetes: Estimated Glomerular Filtration Rate for Kidney Health Diabetes: Estimated Glomerular Filtration Rate for Kidney Health [facility] Start: 10-24-2025 Diabetes: Estimated Glomerular Filtration Rate for Kidney Health Diabetes: Estimated Glomerular Filtration Rate for Kidney Health [facility] Start: 10-23-2025 Diabetes: Estimated Glomerular Filtration Rate for Kidney Health Diabetes: Estimated Glomerular Filtration Rate for Kidney Health [facility] Start: 10-20-2025 Diabetes: Estimated Glomerular Filtration Rate for Kidney Health Diabetes: Estimated Glomerular Filtration Rate for Kidney Health [facility] Start: 10-19-2025 Hemoglobin A1c measurement Diabetes: Hemoglobin A1C [facility] Start: 10-19-2025 Screening for malignant neoplasm of colon [facility] Start: 08-31-2025 Glaucoma screening Diabetes: Retinopathy Screening [facility] Start: 08-16-2025 End: 08-16-2025 Patient encounter procedure 08/16/2025 3:30 PM EDT Office Visit [facility] [address] [place] [address] Maria Eugenia Santos APRN - [facility] [address] [address] [facility] Start: 08-07-2025 End: 08-07-2025 Patient encounter procedure 08/07/2025 3:30 PM EDT Office Visit [facility] [address] [place] [address] Kaushal Schultz PA-C [address] [place] [address] [facility] Start: 07-26-2025 End: 07-26-2025 Patient encounter procedure 07/26/2025 11:00 AM EDT Office Visit [facility] [address] [place] [address] Maria Eugenia Santos APRN - FPGA ENGINEER [address] [place] [address] [facility] Start: 07-09-2025 COVID-19 Vaccine ( season) COVID-19 Vaccine () [facility] Start: 07-09-2025 Influenza vaccination [facility] Start: 07-07-2025 End: 04-06-2026 Comprehensive metabolic 1998 panel - Serum or Plasma Comprehensive metabolic panel Lab Routine Type 2 diabetes mellitus with hyperglycemia, with long-term current use of insulin (HCC) Microalbuminuria Expected: 07/07/2025 (Approximate), Expires: 04/06/2026 [facility] Work Phone: Comment on above: Expected: 07/07/2025 (Approximate), Expi res: 04/06/2026 Start: 07-07-2025 End: 04-06-2026 Lipid 1996 panel - Serum or Plasma Lipid panel Lab Routine Mixed diabetic hyperlipidemia associated with type 2 diabetes mellitus (HCC) Expected: 07/07/2025 (Approximate), Expires: 04/06/2026 [facility] Comment on above: Expected: 07/07/2025 (Approximate), Expi res: 04/06/2026 Start: 07-07-2025 End: 04-06-2026 Microalbumin/Creatinine panel in random Urine Microalbumin / creatinine urine ratio Lab Routine Type 2 diabetes mellitus with hyperglycemia, with long-term current use of insulin (HCC) Microalbuminuria Expected: 07/07/2025 (Approximate), Expires: 04/06/2026 [facility] Comment on above: Expected: 07/07/2025 (Approximate), Expi res: 04/06/2026 Start: 06-22-2025 Glaucoma screening [facility] Start: 06-07-2025 End: 06-07-2025 Admission to same day surgery center 06/07/2025 11:00 AM EDT - 06/07/2025 12:00 PM EDT Surgery [facility] Endoscopy [address] [place] [address] Farhad Chavez MD [address] [facility] [address] [place] [address] COLONOSCOPY [46974 (CPT )] [facility] Endoscopy Comment on above: COLONOSCOPY [51144 (CPT )] Start: 06-07-2025 End: 06-07-2025 Colonoscopy flx dx w/collj spec when pfrmd [facility] Gastroenterology Start: 06-07-2025 End: 06-07-2025 Esophagogastroduodenoscopy transoral diagnostic [facility] Gastroenterology Start: 06-07-2025 Subsequent hospital visit by physician 06/07/2025 11:00 AM EDT Hospital Encounter [facility] [address] [place] [address] Farhad Chavez MD [address] [facility] [address] [place] [address] [facility] Endoscopy Start: 03-27-2025 End: 03-27-2025 Patient encounter procedure 03/27/2025 9:00 AM EDT Office Visit [facility] [address] [facility] [address] [place] [address] Lisa Lopes, DIRECTOR OF COMMUNITY SERVICES - TELEPHOTO ENGINEER [address] [place] [address] [facility] Start: 03-02-2025 End: 03-02-2025 Patient encounter procedure 03/02/2025 11:20 AM EDT Office Visit [facility] Lung Nodule [facility] [address] [place] [address] Herber Ramos, DIRECTOR OF COMMUNITY SERVICES - TELEPHOTO ENGINEER [address] [facility] [address] [place] [address] [facility] Lung Nodule [facility] Start: 02-14-2025 Glaucoma screening Diabetes: Retinopathy Screening [facility] Start: 02-09-2025 End: 02-09-2025 Patient encounter procedure 02/09/2025 2:20 PM EDT Appointment [facility] Vascular Lab [address] [place] [address] Alejandro Mandel APRN - TELEPHOTO ENGINEER [address] [facility] [address] [place] [phone] [facility] Vascular Lab Start: 02-06-2025 End: 02-10-2025 CT Chest WO contrast CT chest wo IV contrast Imaging Routine Lung nodule Expected: 02/06/2025, Expires: 02/10/2025 [facility] [employer] Work Phone: Comment on above: Expected: 02/06/2025, Expires: Start: 02-06-2025 End: 02-06-2025 Patient encounter procedure [facility] CT Start: 02-06-2025 End: 02-06-2025 Patient encounter procedure 02/06/2025 7:30 AM EDT Appointment [facility] CT Imaging [address] [place] [address] Herber Ramos APRN - TELEPHOTO ENGINEER [address] [facility] [address] [place], [place] [id number] [facility] CT Imaging Start: 02-01-2025 End: 02-01-2025 Patient encounter procedure 02/01/2025 9:30 AM EDT Office Visit [facility] Vascular [facility] [address] [facility] [address] [place] [address] Alejandro Mandel APRN - TELEPHOTO ENGINEER [address] [facility] [address] [place] [phone] [facility] Vascular Surgery [facility] Start: 01-21-2025 Diabetes: Estimated Glomerular Filtration Rate for Kidney Health Diabetes: Estimated Glomerular Filtration Rate for Kidney Health [facility] Start: 01-01-2025 End: 01-01-2026 Lipid 1996 panel - Serum or Plasma Lipid panel Lab Routine Mixed hyperlipidemia Expected: 01/01/2025 (Approximate), Expires: 01/01/2026 [facility] [employer] Work Phone: Comment on above: Expected: 01/01/2025 (Approximate), Expi res: 01/01/2026 Start: 01-01-2025 End: 01-01-2026 Microalbumin/Creatinine panel in random Urine Microalbumin / creatinine urine ratio Lab Routine Type 2 diabetes mellitus with hyperglycemia, with long-term current use of insulin (HCC) Expected: 01/01/2025 (Approximate), Expires: 01/01/2026 [facility] Comment on above: Expected: 01/01/2025 (Approximate), Expi res: 01/01/2026 Start: 01-01-2025 End: 01-01-2025 Patient encounter procedure 01/01/2025 11:00 AM EST Office Visit [facility] [address] [facility] [address] [place] [phone] Margo Guerrero, DIRECTOR OF COMMUNITY SERVICES - TELEPHOTO ENGINEER [address] [place] [address] [facility] Start: 12-31-2024 Hemoglobin A1c measurement Diabetes: Hemoglobin A1C [facility] Start: 12-21-2024 End: 12-21-2024 Patient encounter procedure 12/21/2024 8:30 AM EST [facility] [address] [place] [phone] Wanda Johnson DIRECTOR OF COMMUNITY SERVICES - TELEPHOTO ENGINEER [address] [facility] [address] [place] [address] [facility] Start: 12-10-2024 Glaucoma screening Diabetes: Retinopathy Screening [facility] Start: 12-07-2024 End: 12-07-2024 Patient encounter procedure 12/07/2024 1:00 PM EST Office Visit [facility] [address] [facility] [address] [place] [phone] Lilo Rizo MD [address] [facility] [address] [place] [address] [facility] Start: 11-27-2024 End: 11-27-2024 Patient encounter procedure [facility] Endocrinology [facility] Start: 11-24-2024 End: 11-10-2025 RF Guidance for percutaneous drainage and placement of drainage catheter of Biliary ducts IR biliary drain check Imaging Routine Cholecystitis Expected: 11/24/2024, Expires: 11/10/2025 [facility] Work Phone: Comment on above: Expected: 11/24/2024, Expires: Start: 11-14-2024 End: 11-14-2024 Patient encounter procedure 11/14/2024 10:15 AM EST Office Visit [facility] [address] [facility] [address] [place] [address] Asuncion Valencia APRN - TELEPHOTO ENGINEER [address] [facility] [address] [place] [address] [facility] Start: 11-08-2024 Medicare Advantage Annual Wellness Visit Medicare Advantage Annual Wellness Visit [facility] Start: 10-09-2024 Hemoglobin A1c measurement [facility] Start: 07-09-2024 COVID-19 Vaccine ( season) COVID-19 Vaccine ( season) [facility] Start: 07-09-2024 COVID-19 Vaccine ( season) COVID-19 Vaccine ( season) [facility] Start: 07-09-2024 Influenza vaccination [facility] Start: 06-22-2024 Glaucoma screening Diabetes: Retinopathy Screening [facility] Start: 03-14-2024 End: 03-14-2024 Patient encounter procedure 03/14/2024 2:30 PM EDT Office Visit [facility] Endocrinology [address] [place] [phone] Carito Thacker, DIRECTOR OF COMMUNITY SERVICES - TELEPHOTO ENGINEER [address] [place] [address] [facility] Endocrinology Start: 02-11-2024 End: 02-10-2025 CT Chest WO contrast CT chest wo IV contrast Imaging Routine Solitary pulmonary nodule Expected: 02/11/2024, Expires: 02/10/2025 [facility] Work Phone: Comment on above: Expected: 02/11/2024, Expires: Start: 02-11-2024 End: 02-11-2024 Patient encounter procedure [facility]monary Care Start: 02-10-2024 Hemoglobin A1c measurement Diabetes: Hemoglobin A1C [facility] Start: 02-10-2024 Lipid panel [facility] Start: 01-06-2024 End: 01-06-2024 Patient encounter procedure 01/06/2024 11:30 AM EST Appointment [facility] CT Imaging [address] [place] [phone] Herber Ramos, JEREMY - TELEPHOTO ENGINEER [address] [place] [address] [facility] [address] Imaging Start: 12-31-2023 End: 12-31-2023 ambulatory [facility] Start: 12-31-2023 End: 12-31-2023 Patient encounter procedure 12/31/2023 9:40 AM EST Office Visit [facility] Care [address] [place] [phone] Herber Ramos, DIRECTOR OF COMMUNITY SERVICES - TELEPHOTO ENGINEER [address] [place] [address] [facility] Start: 12-23-2023 End: 12-23-2023 Patient encounter procedure 12/23/2023 9:00 AM EST Appointment [facility] Nuclear Medicine [address] [place] [phone] [facility] Nuclear Medicine Start: 12-20-2023 End: 12-20-[address] Imaging Start: 12-20-2023 End: 12-20-2023 Patient encounter procedure 12/20/2023 10:30 AM EST Appointment [facility] Imaging [address] [place] [phone] Herber Ramos APRN - TELEPHOTO ENGINEER [address] [place] [address] [facility] [address] Imaging Start: 11-08-2023 Medicare Advantage Annual Wellness Visit Medicare Advantage Annual Wellness Visit [facility] Start: 10-27-2023 End: 10-27-2023 ambulatory [facility] Endocrinology Start: 10-27-2023 End: 10-27-2023 Patient encounter procedure 10/27/2023 2:00 PM EST Office Visit [facility] Endocrinology [address] [place] [address] Geronimo Lee MD [address] [place] [address] [facility] Endocrinology Start: 10-27-2023 End: 10-27-2023 Telemedicine consultation with patient 10/27/2023 2:00 PM EST Telemedicine [facility] Endocrinology [address] [place] [address] Geronimo Lee MD [address] [place] [address] [facility] Endocrinology Start: 09-17-2023 End: 09-17-2023 Patient encounter procedure 09/17/2023 Office Visit Endocrinology Geronimo Lee MD [address] [place] [address] [facility] Endocrinology Start: 09-17-2023 End: 09-17-2023 Patient encounter procedure 09/17/2023 9:10 AM EST Office Visit [facility] [facility] [address] [place] [phone] Herber Ramos, DIRECTOR OF COMMUNITY SERVICES - TELEPHOTO ENGINEER [address] [place] [address] [facility] Start: 08-13-2023 End: 08-13-2023 Patient encounter procedure 08/13/2023 11:40 AM EDT Office Visit [facility] [address] [place] [phone] Richard Herber, DIRECTOR OF COMMUNITY SERVICES - TELEPHOTO ENGINEER [address] [place] [address] [facility] Start: 07-30-2023 End: 07-30-2023 Patient encounter procedure 07/30/2023 9:10 AM EDT Office Visit [facility] [address] [place] [phone] Herber Ramos, DIRECTOR OF COMMUNITY SERVICES - TELEPHOTO ENGINEER [address] [place] [address] [facility] Start: 07-09-2023 COVID-19 Vaccine () COVID-19 Vaccine () [facility] Start: 07-09-2023 Influenza vaccination [facility] Start: 07-09-2023 [facility] Start: 06-29-2023 End: 06-29-2023 Esophagogastroduodenoscopy transoral diagnostic EGD DIAGNOSTIC Nausea and vomiting, unspecified vomiting type 06/29/2023 9:54 AM EDT [facility] Gastroenterology Start: 05-11-2023 Hemoglobin A1c measurement Diabetes: Hemoglobin A1C [facility] Start: 10-19-2022 Hemoglobin A1c measurement Diabetes: Hemoglobin A1C [facility] Start: 08-08-2022 Influenza vaccination Influenza Vaccine (#1) [facility] Start: 04-23-2022 COVID-19 Vaccine (4 - Booster for Pfizer series) COVID-19 Vaccine (4 - Booster for Pfizer series) [facility] Start: 04-23-2022 COVID-19 Vaccine (4 - Pfizer series) COVID-19 Vaccine (4 - Pfizer series) [facility] Start: 12-08-2021 Creatinine measurement [facility] [place] Start: 12-08-2021 Potassium monitoring Potassium monitoring [facility] [place], [place] Start: 11-28-2021 Creatinine measurement Creatinine monitoring [facility] [place] Start: 11-28-2021 Potassium monitoring Potassium monitoring [facility] [place] Start: 09-26-2021 Creatinine measurement Creatinine monitoring [facility] [place] Start: 09-26-2021 Potassium monitoring Potassium monitoring [facility] [place] Start: 08-29-2021 Lipid panel Lipid Panel [facility] Start: 08-23-2021 Lipid panel Lipid screen [facility] Start: 02-21-2021 HbA1c (Bld) [Mass fraction] A1C test (Diabetic or Prediabetic) [facility] [place] Start: 01-24-2021 End: 01-24-2021 Office Visit 01/24/2021 Office Visit Endocrinology Geronimo Lee MD [address] [facility] [place] [id number] [facility] [place] Start: 11-23-2020 End: 11-23-2020 HbA1c (Bld) [Mass fraction] [place], [place] Comment on above: One Time for 1 Occurrences starting 11/08 until 11/23/2020 Start: 07-09-2020 Influenza vaccination Flu vaccine (#1) [facility] [place] Start: 06-26-2020 Creatinine monitoring Creatinine monitoring [facility] [place] Start: 06-26-2020 Potassium monitoring Potassium monitoring [facility] [place] Start: 06-20-2020 Creatinine monitoring Creatinine monitoring [place], [place] Start: 06-20-2020 Potassium monitoring Potassium monitoring [facility] Start: 01-22-2020 End: 01-22-2020 Office Visit 01/22/2020 Office Visit Gynecologic Oncology Justin Walsh MD [address] [place] [address] [phone] [facility] FUR EXAMINER Oncology Start: 01-09-2020 End: 01-09-2020 Appointment 01/09/2020 Appointment General Surgery Justin Walsh MD [address] [place], [place] [phone] [facility] General Surgery Start: 09-16-2019 A1C test (Diabetic or Prediabetic) A1C test (Diabetic or Prediabetic) [facility] Start: 07-17-2019 End: 07-17-2019 Office Visit 07/17/2019 Office Visit Gynecologic Oncology Justin Walsh MD [address] [place] [address] [phone] [facility] FUR EXAMINER Oncology Start: 07-13-2019 End: 07-13-2019 Office Visit 07/13/2019 Office Visit Gynecologic Oncology Mignon Bynum PA [address] [place] [phone] [facility] FUR EXAMINER Oncology Start: 07-09-2019 Influenza vaccination Flu vaccine (#1) [place], [place] Start: 06-28-2019 End: 06-28-2019 Office Visit 06/28/2019 Office Visit Orthopedic Surgery Sergio Pisano MD [address] [facility] [address] [place] [address] [phone] [facility] [place] Start: 06-27-2019 End: 06-27-2019 Hospital Encounter [facility] Comment on above: Canceled (Other) Start: 04-26-2019 Annual Wellness Visit (AWV) Annual Wellness Visit (AWV) [place], [place] Start: 2016 Breast cancer screen Breast cancer screen [place], [place] Start: 2016 Colon cancer screen colonoscopy Colon cancer screen colonoscopy [place] Start: 2016 Screening for malignant neoplasm of breast Breast cancer screen [place] Start: 2016 Screening for malignant neoplasm of colon Colon cancer screen colonoscopy [place], [place] Start: 2016 Shingles (RZV) Vaccine (1 of 2) Shingles (RZV) Vaccine (1 of 2) [facility] Start: 2016 Shingles Vaccine (1 of 2) Shingles Vaccine (1 of 2) [place] Start: 2016 Zoster Vaccines (1 of 2) Zoster Vaccines (1 of 2) [facility] Start: 2016 [facility] Start: 2011 Cholesterol [Mass/volume] in Serum or Plasma Cholesterol [facility] Start: 2011 Screening for malignant neoplasm of colon [facility] Start: 2006 Screening for malignant neoplasm of breast [facility] Start: 1996 Screening for malignant neoplasm of cervix [facility] Start: 1987 Cervical cancer screen Cervical cancer screen [place], [place] Start: 1987 Screening for malignant neoplasm of cervix [facility] Start: 1985 DTaP/Tdap/Td vaccine (1 - Tdap) DTaP/Tdap/Td vaccine (1 - Tdap) [place] Start: 1985 DTaP/Tdap/Td Vaccines (1 - Tdap) DTaP/Tdap/Td Vaccines (1 - Tdap) [facility] Start: 1985 Hepatitis B Vaccine (1 of 3 - Risk 3-dose series) Hepatitis B Vaccine (1 of 3 - Risk 3-dose series) [place] Start: 1985 Hepatitis B Vaccines (1 of 3 - 19+ 3-dose series) Hepatitis B Vaccines (1 of 3 - 19+ 3-dose series) [facility] Start: 1985 Pneumococcal Vaccine: 50+ Years (1 of 2 - PCV) Pneumococcal Vaccine: 50+ Years (1 of 2 - PCV) [facility] Start: 1985 Tetanus vaccination Tetanus (Td or Tdap) Booster [facility] Start: 1985 Urine screening for protein Diabetes: Urine Protein Screening [facility] Start: 1985 [facility] Start: 1984 Diabetes: Urine Albumin-Creatinine Ratio for Kidney Health Diabetes: Urine Albumin-Creatinine Ratio for Kidney Health [facility] Start: 1984 Diabetic microalbuminuria test Diabetic microalbuminuria test [place] Start: 1984 Hepatitis C screening [facility] Start: 1984 Tetanus + diphtheria + acellular pertussis vaccine (product) Tdap Booster [facility] Start: 1981 HIV screen HIV screen [place], [place] Start: 1981 HIV screening [facility] Start: 1978 Depression Monitoring Depression Monitoring [facility] Start: 1978 Depression Screening Depression Screening [facility] Start: 1978 [facility] Start: 1977 DTaP/Tdap/Td vaccine (1 - Tdap) DTaP/Tdap/Td vaccine (1 - Tdap) [place] Start: 1976 [object Object] Diabetic foot exam [place] Start: 1976 Diabetic foot examination [facility] Start: 1976 Diabetic retinal exam Diabetic retinal exam [place], [place] Start: 1976 Glaucoma screening Diabetes: Retinopathy Screening [facility] Start: 1976 Lipid screen Lipid screen [place], [place] Start: 1976 Preventive dental service [facility] Start: 1972 Pneumococcal 0-64 years Vaccine (1 of 1 - PPSV23) Pneumococcal 0-64 years Vaccine (1 of 1 - PPSV23) [place] Start: 1972 Pneumococcal Vaccine: Pediatrics (0 to 5 Years) and At-Risk Patients (6 to 64 Years) (1 - PCV) Pneumococcal Vaccine: Pediatrics (0 to 5 Years) and At-Risk Patients (6 to 64 Years) (1 - PCV) [facility] Start: 1972 Pneumococcal Vaccine: Pediatrics (0 to 5 Years) and At-Risk Patients (6 to 64 Years) (1 of 2 - PCV) Pneumococcal Vaccine: Pediatrics (0 to 5 Years) and At-Risk Patients (6 to 64 Years) (1 of 2 - PCV) [facility] Start: 1972 [facility] Start: 1967 MMR Vaccines (1 of 1 - Standard series) MMR Vaccines (1 of 1 - Standard series) [facility] Start: 1967 [facility] Start: 04-25-1967 COVID-19 Vaccine (#1) COVID-19 Vaccine (#1) [facility] Start: 1966 Hepatitis B Vaccines (1 of 3 - 3-dose series) Hepatitis B Vaccines (1 of 3 - 3-dose series) [facility] Start: 1966 Hepatitis C screening Hepatitis C screen [place], [place] Start: 1966 HIV screening [facility] Start: 1966 Medicare Advantage Annual Wellness Visit (AWV) Medicare Advantage Annual Wellness Visit (AWV) [facility] Start: 1966 Screening for malignant neoplasm of colon [facility] Start: 1966 [employer] End: 10-19-2024 Aerobic and Anaerobic Culture with Stain [employer] Work Phone: Comment on above: Release Upon Ordering for 1 Occurrences starting 10/19/2024 Once (Lab) for 1 Occ urrences starting 10/19/2024 until 10/19/2024 Aerobic and Anaerobi c Culture with Stain Aerobic and Anaerobic Culture with Stain Microbiology Routine 10/19/2024 3:08 PM [facility] [employer] End: 06-14-2019 Anaerobic Culture Anaerobic Culture Microbiology Routine One Time for 1 Occurrences starting 06/14/2019 until 06/14/2019 [place] Comment on above: One Time for 1 Occurrences starting 05/2019 until 06/14/2019 Bacteria identified in Unspecified specimen by Aerobe culture Culture, Aerobic Bacteria with Gram Stain Microbiology Routine 10/19/2024 3:08 PM [employer] Bacteria identified in Unspecified specimen by Anaerobe culture Anaerobic culture Microbiology Routine Acute cholecystitis 10/19/2024 1:52 PM [facility] [employer] Bacteria identified in Unspecified specimen by Anaerobe culture Anaerobic culture Microbiology Routine 10/19/2024 3:08 PM [employer] End: 08-08-2023 Bacteria identified in Urine by Culture [employer] Work Phone: Comment on above: STAT (Lab) for 1 Occurrences starting until 08/08/2023 End: 07-10-2025 Bacteria identified in Urine by Culture [employer] Work Phone: Comment on above: Once (Lab) for 1 Occurrences starting until 07/10/2025 End: 10-13-2023 Blood gases, arterial measurement [employer] Work Phone: End: 08-08-2023 Blood gases, venous measurement Blood gas, venous (ACH and SBH) Lab STAT Once (Lab) for 1 Occurrences starting 08/08/2023 until 08/08/2023 [employer] Work Phone: Comment on above: Once (Lab) for 1 Occurrences starting until 08/08/2023 End: 12-09-2023 Blood gases, venous measurement Blood gas, venous (ACH and SBH) Lab STAT Once (Lab) for 1 Occurrences starting 12/09/2023 until 12/09/2023 [facility] Work Phone: Comment on above: Once (Lab) for 1 Occurrences starting until 12/09/2023 End: 09-18-2020 CBC CBC Lab Routine Tomorrow AM for 1 Occurrences starting 09/18/2020 until 09/18/2020 [facility] Comment on above: Tomorrow AM for 1 Occurrences starting 1 11/18/2019 until 09/18/2020 End: 09-19-2020 CBC Auto Differential CBC Auto Differential Lab Timed Tomorrow AM for 1 Occurrences starting 09/19/2020 until 09/19/2020 [facility] Comment on above: Tomorrow AM for 1 Occurrences starting 1 11/19/2019 until 09/19/2020 End: 11-25-2020 CBC Auto Differential CBC Auto Differential Lab Timed Tomorrow AM for 1 Occurrences starting 11/25/2020 until 11/25/2020 [facility] Comment on above: Tomorrow AM for 1 Occurrences starting 0 11/25/2020 until 11/25/2020 End: 09-19-2020 Comprehensive metabolic 2000 panel Comprehensive Metabolic Panel Lab Timed Tomorrow AM for 1 Occurrences starting 09/19/2020 until 09/19/2020 [facility] [place] Comment on above: Tomorrow AM for 1 Occurrences starting 11/19/2019 until 09/19/2020 Comprehensive metabo lic 2000 panel Comprehensive Metabolic Panel Lab Routine Daily until discontinued starting 11/23/2020, 6 completed [facility] Comment on above: Daily until discontinued starting 2020, 6 completed End: 11-25-2020 Comprehensive metabolic 2000 panel Comprehensive Metabolic Panel Lab Timed Tomorrow AM for 1 Occurrences starting 11/25/2020 until 11/25/2020 [facility] Comment on above: Tomorrow AM for 1 Occurrences starting 0 11/25/2020 until 11/25/2020 Comprehensive Metabo lic Panel w/ Reflex to MG Comprehensive Metabolic Panel w/ Reflex to MG Lab Routine Daily until discontinued starting 06/15/2019, 6 completed [place] Comment on above: Daily until discontinued starting 2018, 6 completed End: 06-26-2019 Culture Blood #1 Culture Blood #1 Microbiology STAT One Time for 1 Occurrences starting 06/26/2019 until 06/26/2019 [place] Comment on above: One Time for 1 Occurrences starting 06/08 until 06/26/2019 Culture Blood #1 Culture Blood # 1 Microbiology STAT 06/26/2019 10:05 PM EDT [place] End: 06-26-2019 Culture Blood #2 Culture Blood #2 Microbiology STAT One Time for 1 Occurrences starting 06/26/2019 until 06/26/2019 [place] Comment on above: One Time for 1 Occurrences starting 06/08 until 06/26/2019 Culture Blood #2 Culture Blood # 2 Microbiology STAT 06/26/2019 10:05 PM EDT [place] End: 06-14-2019 Culture, Aerobic Bacteria with Gram Stai Culture, Aerobic Bacteria with Gram Stai Microbiology Routine One Time for 1 Occurrences starting 06/14/2019 until 06/14/2019 [place] Comment on above: One Time for 1 Occurrences starting 05/2019 until 06/14/2019 End: 12-08-2020 Culture, Urine [place] Comment on above: One Time for 1 Occurrences starting 11/10 until 12/08/2020 Once for 1 Occurrenc es starting 12/08/2020 until 12/08/2020 Culture, Urine Culture, Urine Microbiology STAT 12/08/2020 5:14 PM EST [place] ECG 12 lead ECG 12 lead CV E CG STAT 10/24/2024 11:04 AM EST [employer] [facility] Work Phone: EKG 12 Lead [facility] [place] End: 09-18-2020 HbA1c (Bld) [Mass fraction] Hemoglobin A1C Lab Routine One Time for 1 Occurrences starting 09/18/2020 until 09/18/2020 [place] Comment on above: One Time for 1 Occurrences starting 09/08 until 09/18/2020 Initiate Oxygen Ther apy Protocol Initiate Oxygen Therapy Protocol Respiratory Care Routine Daily until discontinued starting 06/14/2019 [place] Comment on above: Daily until discontinued starting 2018 End: 06-18-2019 Occult blood x 3, stool Occult blood x 3, stool Lab Routine One Time for 1 Occurrences starting 06/18/2019 until 06/18/2019 [facility] Comment on above: One Time for 1 Occurrences starting 06/08 until 06/18/2019 Oxygen therapy [[facility] Data Set] Initiate Oxygen Therapy Protocol Respiratory Care Routine Daily until discontinued starting 09/18/2020 [facility] Comment on above: Daily until discontinued starting 2019 End: 09-17-2020 POCT Glucose POCT Glucose Point of Care Testing Routine Every 30 Min for 4 Occurrences starting 09/17/2020 until 09/17/2020 [facility] Comment on above: Every 30 Min for 4 Occurrences starting 09/17/2020 until 09/17/2020 POCT Glucose [facility] Garcia Comment on above: As Needed until discontinued [...] for 1 Occurrences starting 06/15/2019 until 06/15/2019 [facility] Comment on above: One Time for 1 Occurrences starting 06/2019 until 06/15/2019 End: 06-16-2019 POCT Glucose POCT Glucose Point of Care Testing Routine One Time for 1 Occurrences starting 06/16/2019 until 06/16/2019 [facility] Comment on above: One Time for 1 Occurrences starting 07/2019 until 06/16/2019 Procalcitonin Procalcitonin La b Routine Q48H until discontinued starting 06/14/2019, 3 completed [facility] Comment on above: Q48H until discontinued starting 019, 3 completed End: 11-26-2020 Troponin I.cardiac [Mass/Vol] Troponin Lab Timed One Time for 1 Occurrences starting 11/26/2020 until 11/26/2020 [facility] [place] Comment on above: One Time for 1 Occurrences starting 11/08 until 11/26/2020 Immunizations Immunization Date Immunization Notes Care Provider Argenis mo 10-19-2024 influenza vaccine tiss-cult subunt (Flucelvax) STANDARD-DOSE injection 0.5 mL Dontrell Glozman DO Work Phone: [facility] rocket staff 08-18-2023 influenza vac subuni t quadrivalent (Flucelvax) injection 0.5 mL Aaron Burgos DO Work Phone: [facility] 02-26-2022 Covid-19, Pfizer Gra y Top, Do Not Dilute, (Age 12 Y+), Im, L Geronimo Lee MD Work Phone: [facility] 08-12-2021 influenza, injectabl e, quadrivalent, preservative free Geronimo Lee MD Work Phone: [facility] 08-12-2021 Rosaura Acevedo O Work Phone: [facility] 08-12-2021 influenza virus vacc ine, unspecified formulation Geronimo Lee MD Work Phone: [facility] 12-04-2020 Pfizer SARS-CoV-2 Vaccination Geronimo Lee MD Work Phone: [facility] 11-13-2020 Pfizer SARS-CoV-2 Vaccination Geronimo Lee MD Work Phone: [facility] 01-14-2019 influenza, injectabl e, quadrivalent, preservative free Dom Ortiz [facility], [place] 01-14-2019 Influenza, Quadv, 6 mo and older, IM, PF (Flulaval, Fluarix) Justin Walsh [facility], [place] 01-14-2019 Rosaura Woodson Work Phone: [facility] NEGATED: Highlighted row has not occurred!10-09-2023 Influenza, injectable, [facility] [place] Canine Kidney, preservative free, quadrivalent Rosaura Mustafa DO Work Phone: [facility] Comment on above: Deferred: Contraindi cation - patient received at facility Payers Date Payer Category Payer Medicaid HMO [id number] 2024 Medicare [id number] 2024 Self-pay [id number] 2024 Unknown [id number] 2022 Medicare [id number] 2022 Medicare HMO [id number] 2022 Private Health Insurance [facility] DUAL [facility] DUAL [id number] 2022-Present [phone] [address] [address] [place] [address] Medicare HMO [id number] 2022 Medicaid MEDICAID - [facility] [place] [id number] 2022-Present [address] [place] [address] Medicaid [id number] 2017 Private Health Insurance [facility] DUAL xxxxxxxxx 2017-Present [address] [place] [address] xxxxxxxxx [id number] 1959 Private Health Insurance [id number] Unknown [id number]. 462 Unknown [id number] [id number]. 462 Unknown [id number] 2.16.840.1.346569.3.579.2. 462 Unknown [id number] [id number]. 462 Unknown [id number] 2.16.840.1.758963.3.579.2. 462 Unknown [id number] 2.16.840.1.630395.3.579.2. 462 Unknown [id number] 2.16.840.1.933454.3.579.2. 462 Unknown [id number] 2.16.840.1.573416.3.579.2. 462 Unknown [id number] [id number]. 462 Unknown [id number] 2.16.840.1.266989.3.579.2. 462 Unknown [id number] [id number]. 462 Unknown [id number] 2.16.840.1.273719.3.579.2. 462 Unknown [id number] 2.16.840.1.516540.3.579.2. 462 Unknown [id number] 2.16.840.1.030534.3.579.2. 462 Unknown [id number] [id number]. 462 Unknown [id number]. 462 Social History Date Type Detail Facility Start: 06-26-2019 End: 02-01-2025 Tobacco smoking status NHIS Never smoker [place], [place] Start: 06-26-2019 End: 10-19-2024 [facility] Start: 1965 Sex Assigned At Not on file M [place] Start: 01-02-2020 End: 06-08-2025 Alcohol intake Current non-drinker of alcohol (finding) [email or web address] Start: 09-20-2020 End: 02-01-2025 Tobacco use and exposure [facility] Start: 01-30-2023 End: 03-08-2023 Exposure to SARS-CoV-2 (event) Not sure [facility] Start: 1965 Sex Assigned At Male [facility] Tobacco smoking status NHIS Tobacco smoking consumption unknown [facility] Work Phone: Start: 03-08-2023 History SDOH Alcohol Frequency 1 [facility] Start: 03-08-2023 History SDOH Alcohol Std Drinks 0 [facility] Start: 03-08-2023 End: 10-19-2024 History of Social function [facility] How often to you hav e a drink containing alcohol? Never [facility] How many standard drinks containing alcohol do you have on a typical day? Patient does not drink [facility] Start: 08-27-2022 Gender identity Identifies as male gender (finding) [facility] Within the last year , have you been afraid of your partner or ex-partner? No [facility] Start: 1965 Sex Assigned At Female [facility] How often to you hav e a drink containing alcohol? Monthly or less [facility] How many standard drinks containing alcohol do you have on a typical day? 1 or 2 [facility] Start: 06-08-2022 End: 02-28-2025 Sex Female (finding) [facility] Do you feel stress - tense, restless, nervous, or anxious, or unable to sleep at night because your mind is troubled all the time - these days [OSQ] Only a little [facility] (I/We) worried whether (my/our) food would run out before (I/we) got money to buy more. Never true [facility] How often do you nee d to have someone help you when you read instructions, pamphlets, or other written material from your doctor or pharmacy [SILS] Sometimes [facility] NEGATED: Highlighted rowStart: NINF History of tobacco use Passive smoker [facility] Clinical Notes 11-28-2020 to 07-11-2025 Discharge Edu Fritz RN - 07/10/2025 3:49 PM Bibi Fritz RN - 07/10/2025 3:49 PM EDTTelephone Encounter - Rhina Benjamin - 07/05/2025 3:23 PM EDTPatient InstructionsAttachments Note Date & Type Note Facility 07-11-2025 Note Sinus rhythm Abnormal R-wave progression, late transition Left ventricular hypertrophy Borderline prolonged QT interval Electronically Signed On 07-11-2025 00:56:44 EDT by Shirley FIGUEROA 07-11-2025 Note Sinus rhythm Abnormal R-wave progression, late transition Left ventricular hypertrophy Borderline prolonged QT interval Electronically Signed On 07-11-2025 00:56:44 EDT by Shirley FIGUEROA 07-10-2025 Hospital Discharg e instructions Toi Cole PA-C - 07/10/2025 10:36 PM EDT INFORMATION: You were treated in the emergency department for nausea. It was found you have a UTI. You were prescribed a antibiotic and given first dose here in the ED. There are many causes of abdominal pain, some serious and some not serious. Based on your evaluation, even if we were not able to determine an absolute cause of your abdominal pain, we think that you are safe to follow up with a primary medical doctor for further evaluation as needed. INSTRUCTIONS: Take over the counter medications such as Tylenol. Avoid NSAID medications like aspirin, naproxen and ibuprofen as these medications for long periods of time or at high doses can damage the lining of your stomach and may be contributing to your abdominal pain. Take any other prescribed pain relievers as directed. Eat or drink foods that you think will be gentle on your stomach. Avoid spicy foods until you are feeling better. Try eating bland foods and avoiding junk food or otherwise greasy food at least until your pain is entirely gone. Avoid alcohol until your symptoms have resolved and then only drink in moderation. FOLLOW-UP: Call your primary care doctor in 3-5 days to follow up on your symptoms as an outpatient. If your pain changes in type, location, or severity, if you develop a new fever greater than 100.5 or have uncontrolled nausea and vomiting, or if you are otherwise concerned please return to the ER for re-evaluation as soon as possible. If your symptoms have not resolved or improved significantly in 48-72 hours please return for a repeat evaluation. Return to the ER for difficulty breathing, inability to keep down liquids by mouth, urinating less than twice a day, severe pain, other concerning symptoms. documented in this encounter [facility] 07-10-2025 Emergency department Note Pt here to the ER via EMS from [facility] c/o headache and nausea for the last couple of days. documented in this encounter [facility] 07-10-2025 Emergency department Triage note Pt here to the ER via EMS from [facility] c/o headache and nausea for the last couple of days. [facility] 07-05-2025 Telephone encounter Note Appointment scheduled on 07/26 at 11am [facility] 07-05-2025 Miscellaneous Notes Appointment scheduled on 07/26 at 11am Images from the original note were not included. Patient's BGL 04/26-07/02/2025 documented in this encounter [facility] 07-04-2025 Telephone encounter Note Images from the original note were not included. Patient's BGL 04/26-07/02/2025 [facility] 07-04-2025 Telephone encounter Note I called the facility to request another copy. [facility] 07-04-2025 Miscellaneous Notes I called the facility to request another copy. The pages are cut off I cannot see the doses completely Images from the original note were not included. Patient's BGL documented in this encounter [facility] 06-29-2025 Telephone encounter Note Downloaded blood glucose log and insulin administration MAR to media tab for the period of 06/08 through 06/29 for provider review. [facility] 06-29-2025 Miscellaneous Notes Downloaded blood glucose log and insulin administration MAR to media tab for the period of 06/08 through 06/29 for provider review. Spoke with Susan KIM at the [facility] and requested a new BGL with accompanying insulin administration record for 06/08-06/29 for provider review. States she will send it herself. Will watch for information and upload into media tab. Spoke with Sheri GUILLORY at the facility. She will re-fax the insulin administration records for 05/29-06/18 for comparison with the BG log sent previously. Unfortunately half the document is cut off I cannot see what the Humulin U-500 base dose is, its on 1 page On the second page I can see the sliding scale Scanned faxed MAR from facility into media tab for dates 06/08/25 - 06/22/25 Spoke with Sheri GUILLORY at the facility who says she will fax the MAR record for 05/29 through 06/18 for comparison with the BGL by provider. Fax number provided was [phone] Spoke with RN caring for Maria Luisa at the facility regarding need for MAR for 05/29 through 06/18 to be faxed for provider review for use of SSI and any missed doses. She states she will fax the MAR records from 05/29 - 06/18 to [phone]. Please ask for MAR and med list I need to know if SS is ever used. Thank you Images from the original note were not included. Patient's BGL documented in this encounter [facility] 06-29-2025 Telephone encounter Note Spoke with Susan KIM at the [facility] and requested a new BGL with accompanying insulin administration record for 06/08-06/29 for provider review. States she will send it herself. Will watch for information and upload into media tab. [facility] 06-28-2025 Telephone encounter Note The pages are cut off I cannot see the doses completely [facility] Telephone encounter Note Images from the original note were not included. Patient's BGL [facility] 06-26-2025 Telephone encounter Note Spoke with Sheri GUILLORY at the facility. She will re-fax the insulin administration records for 05/29-06/18 for comparison with the BG log sent previously. [facility] 06-22-2025 Telephone encounter Note Unfortunately half the document is cut off I cannot see what the Humulin U-500 base dose is, its on 1 page On the second page I can see the sliding scale [facility] [employer] Phone: 06-22-2025 Telephone encounter Note Scanned faxed MAR from facility into media tab for dates 06/08/25 - 06/22/25 [facility] 06-21-2025 Telephone encounter Note Spoke with Sheri GUILLORY at the facility who says she will fax the MAR record for 05/29 through 06/18 for comparison with the BGL by provider. Fax number provided was [phone] [facility] 06-20-2025 Telephone encounter Note Spoke with RN caring for Maria Luisa at the facility regarding need for MAR for 05/29 through 06/18 to be faxed for provider review for use of SSI and any missed doses. She states she will fax the MAR records from 05/29 - 06/18 to [phone]. [facility] 06-20-2025 Telephone encounter Note Please ask for MAR and med list I need to know if SS is ever used. Thank you [facility] 06-19-2025 Telephone encounter Note Images from the original note were not included. Patient's BGL [facility] 06-07-2025 Telephone encounter Note Images from the original note were not included. Patient's BGL [facility] 06-07-2025 Miscellaneous Notes Images from the original note were not included. Patient's BGL documented in this encounter [facility] 06-07-2025 Nurse Note Spoke with Ninfa at [facility] and updated her about of the patient's procedures being cancelled due to low oxygen levels after the start of the EGD. Advised that per Dr. Chavez patient will need cardiac and pulmonary clearance prior to any future endoscopy procedures. See MD report. Skilled transport to arrive at 12:30 to take patient back to [facility]. At 12:55 spoke with transport [employer] [phone] who said it would be another 30 minutes before they would arrive. Patient given shannon crackers and roselia enriqueta for complaints of hunger. [facility] 06-07-2025 Miscellaneous Notes Spoke with Ninfa at [facility] and updated her about of the patient's procedures being cancelled due to low oxygen levels after the start of the EGD. Advised that per Dr. Chavez patient will need cardiac and pulmonary clearance prior to any future endoscopy procedures. See MD report. Skilled transport to arrive at 12:30 to take patient back to [facility]. At 12:55 spoke with transport company [phone] who said it would be another 30 minutes before they would arrive. Patient given shannon crackers and roselia enriqueta for complaints of hunger. [facility] Name: Will Jacinto Procedure Date: 06/07/2025 10:37 AM Gender: Female Date of : 1965 Age: 59 Admit Type: Outpatient Note Status: Finalized Endoscopist: Farhad Chavez MD, [id number] Procedure: Upper GI endoscopy Indications: h/o anemia, FOBT positive Findings: As the scope was advanced to the stomach Oxygen saturation dropped to 37% and procedure aborted. Recommendation: - Patient has a contact number available for emergencies. The signs and symptoms of potential delayed complications were discussed with the patient. Return to normal activities tomorrow. Written discharge instructions were provided to the patient. - Continue present medications. - Per previous notes, the patient was deemed poor surgical candidate for cholecystectomy in 10/2024. The patient got hypoxic as soon as the scope was passed into the stomach. His most current Hgb level is 12gr. I recommend him to be re-evalutaed and the procedures to be performed electively after he gets clinically better. He needs a pre-admission testing, needs to be cleared by pulmonary, cardiology and his PCP and the procedures needs to be done in main endo after intubating the patient. This was discussed with Anesthesia doctor and DIRECTOR [employer] who were in the procedure room and we made a shared decison how to proceeed for next procedures - Resume previous diet. - Return to referring physician as previously scheduled. Referring MD: Jared Guzman Medicines: Monitored Anesthesia Care Procedure: Pre-Anesthesia Assessment: - Prior to the procedure, a History and Physical was performed, and patient medications and allergies were reviewed. The patient is competent. The risks and benefits of the procedure and the sedation options and risks were discussed with the patient. All questions were answered and informed consent was obtained. Patient identification and proposed procedure were verified by the physician, the nurse and the machine stapler in the pre-procedure area in the procedure room in the endoscopy suite. Mental Status Examination: normal. Airway Examination: normal oropharyngeal airway and neck mobility. Respiratory Examination: clear to auscultation. CV Examination: normal. Prophylactic Antibiotics: The patient does not require prophylactic antibiotics. Prior Anticoagulants: The patient has taken no anticoagulant or antiplatelet agents. ASA Grade Assessment: III - A patient with severe systemic disease. After reviewing the risks and benefits, the patient was deemed in satisfactory condition to undergo the procedure. The anesthesia plan was to use monitored anesthesia care (MAC). Immediately prior to administration of medications, the patient was re-assessed for adequacy to receive sedatives. The heart rate, respiratory rate, oxygen saturations, blood pressure, adequacy of pulmonary ventilation, and response to care were monitored throughout the procedure. The physical status of the patient was re-assessed after the procedure. After obtaining informed consent, the endoscope was passed under direct vision. Throughout the procedure, the patient's blood pressure, pulse, and oxygen saturations were monitored continuously. The Endoscope was introduced through the mouth, with the intention of advancing to the stomach. The scope was advanced to the pylorus before the procedure was aborted. Medications were given. The upper GI endoscopy was accomplished with ease. The patient tolerated the procedure well. Complications: No immediate complications. Estimated blood loss: None. Attending Participation: I personally performed the entire procedure. Farhad Chavez MD 06/07/2025 11:37:55 AM This report has been signed electronically. Number of Addenda: 0 Note Initiated On: 06/07/2025 10:37 AM documented in this encounter [facility] 06-07-2025 Note Pt saturation starte d falling dropped and procedure was stopped. Procedure aborted for safety. [facility] 06-07-2025 Nurse Note Pt saturation started falling dropped and procedure was stopped. Procedure aborted for safety. [facility] 06-07-2025 Nurse Note Pt saturation started falling dropped and procedure was stopped. Procedure aborted for safety. Spoke with patient's niece Jovana Quesada regarding consent for procedure. She states that patient is able to sign his own consents. documented in this encounter [facility] 06-07-2025 Procedure note [facility] Patient Name: Will Jacinto Procedure Date: 06/07/2025 10:37 AM Gender: Female Date of : 1965 Age: 59 Admit Type: Outpatient Note Status: Finalized Endoscopist: Farhad Chavez MD, [id number] Procedure: Upper GI endoscopy Indications: h/o anemia, FOBT positive Findings: As the scope was advanced to the stomach Oxygen saturation dropped to 37% and procedure aborted. Recommendation: - Patient has a contact number available for emergencies. The signs and symptoms of potential delayed complications were discussed with the patient. Return to normal activities tomorrow. Written discharge instructions were provided to the patient. - Continue present medications. - Per previous notes, the patient was deemed poor surgical candidate for cholecystectomy in 10/2024. The patient got hypoxic as soon as the scope was passed into the stomach. His most current Hgb level is 12gr. I recommend him to be re-evalutaed and the procedures to be performed electively after he gets clinically better. He needs a pre-admission testing, needs to be cleared by pulmonary, cardiology and his PCP and the procedures needs to be done in main endo after intubating the patient. This was discussed with Anesthesia doctor and DIRECTOR [employer] who were in the procedure room and we made a shared decison how to proceeed for next procedures - Resume previous diet. - Return to referring physician as previously scheduled. Referring MD: Jared Guzman Medicines: Monitored Anesthesia Care Procedure: Pre-Anesthesia Assessment: - Prior to the procedure, a History and Physical was performed, and patient medications and allergies were reviewed. The patient is competent. The risks and benefits of the procedure and the sedation options and risks were discussed with the patient. All questions were answered and informed consent was obtained. Patient identification and proposed procedure were verified by the physician, the nurse and the machine stapler in the pre-procedure area in the procedure room in the endoscopy suite. Mental Status Examination: normal. Airway Examination: normal oropharyngeal airway and neck mobility. Respiratory Examination: clear to auscultation. CV Examination: normal. Prophylactic Antibiotics: The patient does not require prophylactic antibiotics. Prior Anticoagulants: The patient has taken no anticoagulant or antiplatelet agents. ASA Grade Assessment: III - A patient with severe systemic disease. After reviewing the risks and benefits, the patient was deemed in satisfactory condition to undergo the procedure. The anesthesia plan was to use monitored anesthesia care (MAC). Immediately prior to administration of medications, the patient was re-assessed for adequacy to receive sedatives. The heart rate, respiratory rate, oxygen saturations, blood pressure, adequacy of pulmonary ventilation, and response to care were monitored throughout the procedure. The physical status of the patient was re-assessed after the procedure. After obtaining informed consent, the endoscope was passed under direct vision. Throughout the procedure, the patient's blood pressure, pulse, and oxygen saturations were monitored continuously. The Endoscope was introduced through the mouth, with the intention of advancing to the stomach. The scope was advanced to the pylorus before the procedure was aborted. Medications were given. The upper GI endoscopy was accomplished with ease. The patient tolerated the procedure well. Complications: No immediate complications. Estimated blood loss: None. Attending Participation: I personally performed the entire procedure. Farhad Chavez MD 06/07/2025 11:37:55 AM This report has been signed electronically. Number of Addenda: 0 Note Initiated On: 06/07/2025 10:37 AM [facility] 06-07-2025 Note Spoke with patient's ambrosio Quesada regarding consent for procedure. She states that patient is able to sign his own consents. [facility] 06-07-2025 Nurse Note Spoke with patient's ambrosio Quesada regarding consent for procedure. She states that patient is able to sign his own consents. [facility] 06-07-2025 History and physical note GASTROENTEROLOGY PHYSICIAN PRE PROCEDURE NOTE HPI: Will Jacinto is a 59 y.o. adult who is here today for planned endoscopic examination. All: Allergies[1] Meds: Current Medications[2] PMH: Medical History[3] No reactions to anesthesia in the past. Airway patent PE: VS: BP 130/66 Pulse 75 Temp 36.2 C (97.1 F) (Temporal) Resp 16 SpO2 92% There is no height or weight on file to calculate BMI. General: Patient in no distress CVS: Regular rate & rhythm Respiratory: Clear to auscultation Abdomen: soft and non tender ASA score : []ASA 1 []ASA 2 [x]ASA 3 ASSESSMENT & PLAN: Risks & benefits of the endoscopic procedure(s) and MAC /GA sedation were personally explained to patient / family along with alternatives to the procedure in detail including radiological and surgical options. The risks of the endoscopic procedure include but are not limited to risk from anesthesia, respiratory failure, infection, bleeding, perforation, pancreatitis with its sequelae , damage to the adjacent organs, missed lesions and need for further procedure, surgery or interventional radiological intervention, from procedure or complications. We made a shared decision to proceed with planned procedure []EGD []Colonoscopy [x]EGD&Colonoscopy Farhad Chavez MD Gastroenterology [1] No Known Allergies [2] No current facility-administered medications for this encounter. 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), unspecified side (HCC) Anxiety disorder Bipolar 1 disorder ([facility]) Blood circulation, collateral Cellulitis chronic L lower leg COVID 12/08/2021 Depression Diabetes mellitus ([facility]) Type II, on insulin Disease of blood and blood forming organ Endometrial carcinoma (HCC) 11/25/2020 Endometrial hyperplasia Foot ulcer ([facility]) Hx of blood clots RLE prior to amputation Hyperlipidemia Hypertension Lymphedema 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 adult who is here today for planned endoscopic examination. All: Allergies[1] Meds: Current Medications[2] PMH: Medical History[3] No reactions to anesthesia in the past. Airway patent PE: VS: BP 130/66 Pulse 75 Temp 36.2 C (97.1 F) (Temporal) Resp 16 SpO2 92% There is no height or weight on file to calculate BMI. General: Patient in no distress CVS: Regular rate & rhythm Respiratory: Clear to auscultation Abdomen: soft and non tender ASA score : []ASA 1 []ASA 2 [x]ASA 3 ASSESSMENT & PLAN: Risks & benefits of the endoscopic procedure(s) and MAC /GA sedation were personally explained to patient / family along with alternatives to the procedure in detail including radiological and surgical options. The risks of the endoscopic procedure include but are not limited to risk from anesthesia, respiratory failure, infection, bleeding, perforation, pancreatitis with its sequelae , damage to the adjacent organs, missed lesions and need for further procedure, surgery or interventional radiological intervention, from procedure or complications. We made a shared decision to proceed with planned procedure []EGD []Colonoscopy [x]EGD&Colonoscopy Farhad Chavez MD Gastroenterology [1] No Known Allergies [2] No current facility-administered medications for this encounter. 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), unspecified side (HCC) Anxiety disorder Bipolar 1 disorder (HCC) Blood circulation, collateral Cellulitis chronic L lower leg COVID 12/08/2021 Depression Diabetes mellitus ([facility]) Type II, on insulin Disease of blood and blood forming organ Endometrial carcinoma (HCC) 11/25/2020 Endometrial hyperplasia Foot ulcer (HCC) Hx of blood clots RLE prior to amputation Hyperlipidemia Hypertension Lymphedema 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 Farhad Chavez EGD/Colonoscopy Date: 06/07/25 Arrival time: 10:00 am Please report to: [place] [id number] Spoke with Nabil at [facility] , [facility] patient will attend scheduled procedure. All questions or concerns addressed. Pt has prep medication on hand. Prep instructions sent via [employer] if active. [facility] 06-04-[address] Farhad Chavez EGD/Colonoscopy Date: 06/07/25 Arrival time: 10:00 am Please report to: [place] [id number] Spoke with Nabil leary [facility] , confirmed patient will attend scheduled procedure. All questions or concerns addressed. Pt has prep medication on hand. Prep instructions sent via [employer] if active. Dr. Farhad Chavez EGD/Colonoscopy Date: 06/07/25 Arrival time: 10:00 am Please report to: [address] [id number] Spoke with Jose Raul at [facility] , confirmed patient will attend scheduled procedure. All questions or concerns addressed. Pt has prep medication on hand. Prep instructions sent via [employer] if active. Prep instructions faxed to [facility] Attn: Jose Raul. [phone] documented in this encounter [facility] 06-01-2025 Telephone encounter Note I have reviewed the pt's glucose log. Based on interpretation of the FSBS data, I recommend no changes to the pt's antihyperglycemic regimen. Pt should: [x] Resend glucose log in 4 weeks [] Bring log to next office visit. [] Send glucose log into office if changes occur or new concerns arise. Pt should continue to check glucose levels: [x] 4x/day (before each meal and at bedtime) [] 2x/day (before breakfast and alternating times before other meals or bedtime) [] Other () Med rec updated: NA [facility] 06-01-2025 Miscellaneous Notes I have reviewed the pt's glucose log. Based on interpretation of the FSBS data, I recommend no changes to the pt's antihyperglycemic regimen. Pt should: [x] Resend glucose log in 4 weeks [] Bring log to next office visit. [] Send glucose log into office if changes occur or new concerns arise. Pt should continue to check glucose levels: [x] 4x/day (before each meal and at bedtime) [] 2x/day (before breakfast and alternating times before other meals or bedtime) [] Other () Med rec updated: NA Images from the original note were not included. Patient's BGL documented in this encounter [facility] 05-31-2025 Telephone encounter Note Images from the original note were not included. Patient's BGL [facility] 05-31-[address] Farhad Chavez EGD/Colonoscopy Date: 06/07/25 Arrival time: 10:00 am Please report to: [place] [id number] Spoke with Jose Raul at [facility] , confirmed patient will attend scheduled procedure. All questions or concerns addressed. Pt has prep medication on hand. Prep instructions sent via [employer] if active. [facility] Attn: Jose Raul. [phone] [facility] 05-18-2025 Telephone encounter Note Called senior care and talk with nurse, she don't know and transfer to retail sales director, put me in hold for 25 min and never answer, if they call back please ask what they need . Thank you. [facility] 05-18-2025 Miscellaneous Notes Called senior care and talk with nurse, she don't know and transfer to retail sales director, put me in hold for 25 min and never answer, if they call back please ask what they need . Thank you. Not sure what is being asked. Did not order dietary restrictions, only recommendations. Please advise! Name of caller: Lisa Contact phone number: [phone] Relationship to Patient: Nurse at [facility] Provider: KELLEY Schultz Practice: Endo Chief Complaint/Reason for Call: Patient is being non compliant with no low carb diet restrictions. They are asking for an order to go back to unrestricted diet. Please advise. Best time of day caller can be reached: Any Patient advised that office/PCP has 24-48 business hours to return their call: Yes documented in this encounter [facility] 05-18-2025 Telephone encounter Note Not sure what is being asked. Did not order dietary restrictions, only recommendations. [facility] 05-14-2025 Telephone encounter Note Please advise! [facility] 05-14-2025 Telephone encounter Note Name of caller: Lisa Contact phone number: [phone] Relationship to Patient: Nurse at [facility] Provider: KELLEY Schultz Practice: Endo Chief Complaint/Reason for Call: Patient is being non compliant with no low carb diet restrictions. They are asking for an order to go back to unrestricted diet. Please advise. Best time of day caller can be reached: Any Patient advised that office/PCP has 24-48 business hours to return their call: Yes [facility] 05-07-2025 Telephone encounter Note Called patient's senior care and informed. [facility] 05-07-2025 Miscellaneous Notes Called patient's senior care and informed. Continue current doses Recommend future BGLs be sent in 4 week intervals. Or sooner if experiencing hypoglycemia or persistent elevations. Images from the original note were not included. Patient's BGL documented in this encounter [facility] 05-07-2025 Telephone encounter Note Continue current doses Recommend future BGLs be sent in 4 week intervals. Or sooner if experiencing hypoglycemia or persistent elevations. [facility] 05-07-2025 Telephone encounter Note Images from the original note were not included. Patient's BGL [facility] 05-01-2025 Telephone encounter Note Called patient nurse at senior care and informed. [facility] 05-01-2025 Miscellaneous Notes Called patient nurse at senior care and informed. Blood glucose log variable. 6/18-6/19 elevated. 6/-04/30 at goal except for one check. Continue current doses and limit carbs/improve diet. Recommend future BGLs be sent in 4 week intervals. Or sooner if experiencing hypoglycemia or persistent elevations. Images from the original note were not included. Patient's BGL documented in this encounter [facility] 05-01-2025 Telephone encounter Note Blood glucose log variable. 6/18-6/19 elevated. 6/-04/30 at goal except for one check. Continue current doses and limit carbs/improve diet. Recommend future BGLs be sent in 4 week intervals. Or sooner if experiencing hypoglycemia or persistent elevations. [facility] 04-30-2025 Telephone encounter Note Images from the original note were not included. Patient's BGL [facility] 04-20-2025 Telephone encounter Note Called and relayed the TE below to the pt's nurse. [facility] 04-20-2025 Miscellaneous Notes Called and relayed the TE below to the pt's nurse. Continue current doses. Future blood glucose log's requested to have 2 weeks of data. BGL downloaded in media for your review. Thanks documented in this encounter [facility] 04-19-2025 Miscellaneous Notes Continue current doses. Future blood glucose log's requested to have 2 weeks of data. BGL downloaded in media for your review. Thanks documented in this encounter [facility] 04-19-2025 Telephone encounter Note Continue current doses. Future blood glucose log's requested to have 2 weeks of data. [facility] 04-17-2025 Telephone encounter Note BGL downloaded in media for your review. Thanks [facility] 04-06-2025 Telephone encounter Note Images from the original note were not included. [facility] at fax #: [phone]. [facility] 04-06-2025 Miscellaneous Notes Images from the original note were not included. Faxed BG recommendation [facility] at fax #: [phone]. Good Afternoon, I reviewed blood sugars for Maria Luisa, and they are mostly stable. There are no hypoglycemic events and blood sugars are not in the 300s on this log which is fantastic. No changes recommended at this time. Thanks! Images from the original note were not included. 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 Please be advised. Best time of day caller can be reached: Any Patient advised that office/PCP has 24-48 business hours to return their call: Yes documented in this encounter [facility] 04-06-2025 History of Presen t illness Narrative Images from the original note were not included. [facility] [address] [place] [id number] Dept: [phone] Dept Loc: [phone] Visit type: Established patient Reason for Visit: Follow-up and Diabetes Mellitus Assessment and Plan 1. Type 2 diabetes mellitus with hyperglycemia, with long-term current use of insulin ([facility]) - AMB POC HEMOGLOBIN A1C - Comprehensive metabolic panel - Microalbumin / creatinine urine ratio 2. Type 2 diabetes mellitus with diabetic autonomic neuropathy, with long-term current use of insulin ([facility]) 3. Hypertension associated with type 2 diabetes mellitus ([facility]) 4. Mixed diabetic hyperlipidemia associated with type 2 diabetes mellitus ([facility]) - Lipid panel 5. Class [...] is Jared Guzman Referring is PCP Previous Ctc Operator: [facility] office visit: Inpatient 10/19/2024-10/23/2024 Last office visit: 12/2024 DM Onset: 2 Type of DM: 1991 Complications: Cardiovascular -- No Statin Use -- [...] fingers, couple slices of pizza Meats, Salad, uruguayan or ranch dressing Beverages: Crystal light, Diet 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, RLE Morbidly obese ([facility]) Muscle weakness Osteomyelitis ([facility]) Osteomyelitis ([facility]) 2019 RLE Other lack of coordination Other specified soft tissue disorders Other symbolic dysfunctions Schizophrenia ([facility]) Sleep apnea no CPAP Venous [...] ENDOSCOPY N/A 06/29/2023 Dr Sergio Sibley at [facility]; no specimens WISDOM TOOTH EXTRACTION Family History [...] found for: CHOLHDLRATIO No results found for: [id number] Imaging/Testing: Portions of the information within this encounter were entered using an electronic dictation system. Best attempts were made to edit/proofread the information prior to note completion. Despite the review of information, some errors may remain. If there are questions related to the information contained within the note please contact the signing physician directly. documented in this encounter [facility] 04-05-2025 Telephone encounter Note Good Afternoon, I reviewed blood sugars for Maria Luisa, and they are mostly stable. There are no hypoglycemic events and blood sugars are not in the 300s on this log which is fantastic. No changes recommended at this time. Thanks! [facility] 04-05-2025 Telephone encounter Note Images from the original note were not included. Patient's BGL [facility] 03-27-2025 Telephone encounter Note Name of caller: Jose Raul Contact phone number: [phone] Relationship to Patient: 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 Please be advised. Best time of day caller can be reached: Any Patient advised that office/PCP has 24-48 business hours to return their call: Yes [facility] 02-27-2025 Telephone encounter Note Images from the original note were not included. Patient's BGL [facility] 02-27-2025 Miscellaneous Notes Images from the original note were not included. Patient's BGL documented in this encounter [facility] 02-16-2025 Telephone encounter Note Faxed letter to [facility] at fax #: [phone]. [facility] 02-16-2025 Miscellaneous Notes [facility] fax #: [phone]. I reviewed the blood glucose log. Blood [...] included. Patient's BGL documented in this encounter [facility] 02-15-2025 Telephone encounter Note I reviewed the blood glucose log. Blood sugars remain variable. Please increase U500 insulin to 150 before breakfast, 130 before lunch and 150 before dinner. If blood sugar before meal is 90-120, give half dose If less than 90 and patient eating little carbohydrates for meal, hold u500 dose. Thank you, JEREMY Schuster CNP [facility] 02-15-2025 Telephone encounter Note Images from the original note were not included. Patient's BGL [facility] 02-13-2025 Telephone encounter Note Called [facility] to offer cancel the [facility] visit per provider. Visit canceled. [facility] 02-13-2025 Miscellaneous Notes Called [facility] to offer cancel the [facility] visit per provider. Visit canceled. Lung nodule stable-does not need f/up CT reviewed-from Oct. He declined sleep med referral. I do not have to see him. I would recommend that they cancel f/up. Nodule unchanged for 2 yrs.. Nurse from [facility] [place] called to schedule Annual follow up. Follow up scheduled for 03/02/2025. Patient is non weight bearing and uses a deedee. Further question is whether they bring with deedee or ambulance cot. Please advise. [facility] Radiology called stating that CT chest wo IV contrast order will before its completion. Requested new order to be placed. Please advise. documented in this encounter [facility] 02-12-2025 Note Lung nodule stable-d oes not need f/up CT reviewed-from Oct. He declined sleep med referral. I do not have to see him. I would recommend that they cancel f/up. Nodule unchanged for 2 yrs.. [facility] 02-12-2025 Telephone encounter Note Lung nodule stable-does not need f/up CT reviewed-from Oct. He declined sleep med referral. I do not have to see him. I would recommend that they cancel f/up. Nodule unchanged for 2 yrs.. [facility] rocket staff Work Phone: 02-12-2025 Miscellaneous Notes Lung nodule stable-does not need f/up CT reviewed-from Oct. He declined sleep med referral. I do not have to see him. I would recommend that they cancel f/up. Nodule unchanged for 2 yrs.. Nurse from [facility] called to schedule Annual follow up. Follow up scheduled for 03/02/2025. Patient is non weight bearing and uses a [facility]ee. Further question is whether they bring with [facility]ee or ambulance cot. Please advise. [facility] Radiology called stating that CT chest wo IV contrast order will before its completion. Requested new order to be placed. Please advise. documented in this encounter [facility] 02-12-2025 Telephone encounter Note Nurse from [facility] called to schedule Annual follow up. Follow up scheduled for 03/02/2025. Patient is non weight bearing and uses a [facility]ee. Further question is whether they bring with [facility]ee or ambulance cot. Please advise. [facility] 02-09-2025 Telephone encounter Note Faxed new orders to [facility] at fax #: [phone]. [facility] 02-09-2025 Miscellaneous Notes Faxed new orders to [facility] at fax #: [phone]. I reviewed blood sugars. Blood sugars are [...] included. Patient's BGL documented in this encounter [facility] 02-08-2025 Telephone encounter Note I reviewed [...] 102 Bedtime Blood sugars: 302, 108, 194 [facility] 02-08-2025 Miscellaneous Notes I reviewed blood [...] included. Patient's BGL documented in this encounter [facility] 02-08-2025 Telephone encounter Note [facility] Radiology called stating that CT chest wo IV contrast order will before its completion. Requested new order to be placed. Please advise. [facility] 02-08-2025 Miscellaneous Notes [facility] Radiology called stating that CT chest wo IV contrast order will before its completion. Requested new order to be placed. Please advise. documented in this encounter [facility] 02-07-2025 Telephone encounter Note Images from the original note were not included. Patient's BGL [facility] 02-01-2025 History of Presen t illness Narrative Vascular Surgery Outpatient Consultation Chief Complaint Patient presents with New Patient Dr. Guzman/ venous insufficiency, arterial occlusion? Reason for Consult: PVD Requesting Physician: Dr. Guzman HISTORY OF PRESENTILLNESS: The patient is a 59 y.o. adult with significant medical hx listed below, who is here for evaluation of PAD. Pt is from [facility]. He is in a wheelchair. He states 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, RLE Morbidly obese ([facility]) Muscle weakness Osteomyelitis ([facility]) Osteomyelitis ([facility]) 2019 RLE Other lack of coordination Other specified soft tissue disorders Other symbolic dysfunctions Schizophrenia ([facility]) Sleep apnea no CPAP Venous insufficiency Past Surgical History: Past Surgical History: Procedure Laterality Date ABCESS DRAINAGE Right 09/09/2018 FOOT; [facility] COLONOSCOPY 09/19/[address] Hyde DILATION AND CURETTAGE OF UTERUS 05/18/2019 HYSTEROSCOPY 12/23/2021 LEG AMPUTATION THROUGH KNEE Right 06/16/2019 UPPER GASTROINTESTINAL ENDOSCOPY N/A 06/29/2023 Dr Sergio Sibley at [facility]; no specimens WISDOM TOOTH EXTRACTION Current Medications: [...] Do not crush, chew, or split. Historical ProviderMD carvedilol (Coreg) 25 MG tablet Take 1 tablet (25 mg) by mouth in the morning and 1 tablet (25 mg) in the evening. Take with meals. 01/11/24 Mateo Espitia MD ferrous sulfate 325 (65 Fe) MG tablet Take 1 tablet (325 mg) by mouth daily (with breakfast). 01/11/24 Matoe Espitia MD FLUoxetine (PROzac) 40 MG capsule Take 40 mg by mouth daily. Historical ProviderMD gabapentin (Neurontin) 100 MG capsule Take 100 [...] for meal, hold u500 dose. 01/01/25 Margo Guerrero APRN - TELEPHOTO ENGINEER lactulose (Kristalose) 20 g packet Take 20 g by mouth 2 times daily. Historical Provider, lisinopril 40 MG tablet Take 0.5 tablets (20 mg) by mouth daily. 10/16/23 Marcio Armando MD magnesium hydroxide (Milk of Magnesia) 400 MG/5ML suspension Take 30 mL by mouth Nightly. Historical ProviderMD melatonin 10 MG tablet Take 10 mg [...] file Stress: No Stress Concern Present (10/19/2024) [employer] [place] [employer] - Occupational Stress Questionnaire Feeling of Stress : Only a little Social Connections: Unknown (10/19/2024) Social Connection and Isolation Panel [NHANES] Frequency of Communication with Friends and Family: Three times a week Frequency of Social Gatherings with Friends and Family: Once a week Attends Buddhist Services: 1 to 4 times per year [...] results of PVR documented in this encounter [facility] 01-31-2025 Telephone encounter Note Called [facility] linda/jesus Moise released message as written, she stated that she understood. [facility] 01-31-2025 Miscellaneous Notes Called [facility] linda/jesus Moise released message as written, she [...] included. Patient's BGL documented in this encounter [facility] 01-30-2025 Telephone encounter Note Blood sugars are extremely variable. Breakfast blood sugars can vary between 101-304 Lunch blood sugars between 135-308 Dinner variations between 93-336 Insulin doses can not be modified for riskof hypoglyamcia or hyperglycemia. Limit oral intake to 60 grams of carbs per meal and 15 grams of carbs/snack. [facility] 01-29-2025 Telephone encounter Note Images from the original note were not included. Patient's BGL [facility] 01-19-2025 Telephone encounter Note Faxed orders to [employer] [facility] at fax #: [phone]. [facility] 01-19-2025 Miscellaneous Notes Faxed orders to [facility] at fax #: [phone]. I reviewed blood sugar logs. Blood sugars [...] included. Patients BGL documented in this encounter [facility] 01-17-2025 Telephone encounter Note I reviewed [...] in addition to the current medication doses. [facility] 01-15-2025 Telephone encounter Note Images from the original note were not included. Patients BGL [facility] 01-02-2025 Telephone encounter Note Labs Noted [facility] 01-02-2025 Miscellaneous Notes Labs Noted Images from the original note were not included. Requested BGLs and a recent CMP was received , please advise. documented in this encounter [facility] 01-01-2025 Telephone encounter Note Images from the original note were not included. Requested BGLs and a recent CMP was received , please advise. [facility] 02-24-2025 History of Presen t illness Narrative Images from the original note were not included. [facility] END[facility] - [address] [facility] [address] Dept: [phone] Dept Loc: [phone] Visit type: Established patient Reason for Visit: Hospital Follow-up, Diabetes Mellitus, and Hyperglycemia Assessment and Plan 1. Type 2 diabetes mellitus with hyperglycemia, with long-term current use of insulin ([facility]) - Microalbumin / creatinine urine ratio 2. Type 2 diabetes mellitus with diabetic autonomic neuropathy, with long-term current use of insulin ([facility]) 3. S/P AKA (above knee amputation) unilateral, right ([facility]) 4. Mixed hyperlipidemia - Lipid panel 5. Microalbuminuria 6. Essential hypertension 7. Class 3 severe obesity due to excess calories with serious comorbidity and body mass index (BMI) of 45.0 to 49.9 in adult ([facility]) A1c 6.9 as of 10/19/2024. [...] is Jared Guzman Referring is PCP Previous Ctc Operator: [facility] office visit: Inpatient 10/19/2024-10/23/2024 Last office visit: DM Onset: 2 Type of DM: 1991 Complications: Cardiovascular -- No Statin Use -- [...] fingers, couple slices of pizza Meats, Salad, uruguayan or ranch dressing Beverages: Crystal light, Diet 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, RLE Morbidly obese ([facility]) Muscle weakness Osteomyelitis ([facility]) Osteomyelitis ([facility]) 2019 RLE Other lack of coordination Other specified soft tissue disorders Other symbolic dysfunctions Schizophrenia ([facility]) Sleep apnea no CPAP Venous [...] ENDOSCOPY N/A 06/29/2023 Dr Sergio Sibley at [facility]; no specimens WISDOM TOOTH EXTRACTION Family History [...] found for: CHOLHDLRATIO No results found for: [id number] Imaging/Testing: Portions of the information within this encounter were entered using an electronic dictation system. Best attempts were made to edit/proofread the information prior to note completion. Despite the review of information, some errors may remain. If there are questions related to the information contained within the note please contact the signing physician directly. documented in this encounter [facility] 01-01-2025 Instructions JEREMY Vincent CNP - 01/01/2025 11:00 AM EST Please send Ophthalmology Note once completed this year. Please note if any insulin doses are held on blood log. documented in this encounter [facility] 12-29-2024 Telephone encounter Note Called VAN s/w Ninfa released message as written, no insulin has been held. [facility] 12-29-2024 Miscellaneous Notes Called VAN s/w Ninfa released message as written, no insulin has been held. Roberto Ocasio, I received the BGL Log from 12/08/2024-12/18/2024. [...] Name of caller: Ninfa Contact phone number: [phone] Relationship to Patient: [facility] Provider: KRANTHI Guerrero Practice: [facility] Endocrinology Chief Complaint/Reason for Call: Ninfa states [...] included. Faxed orders from ana maria to [facility] I have reviewed the pt's glucose log. [...] included. Patients BGL documented in this encounter [facility] 12-27-2024 Telephone encounter Note Roberto Ocasio, I received the BGL Log from 12/08/2024-12/18/2024. [...] and management of the insulin doses. Thanks! [facility] 12-27-2024 Miscellaneous Notes Hi Ninfa, I [...] Name of caller: Ninfa Contact phone number: [phone] Relationship to Patient: [facility] Provider: KRANTHI Guerrero Practice: [facility] Endocrinology Chief Complaint/Reason for Call: Ninfa states [...] included. Faxed orders from ana maria to [facility] I have reviewed the pt's glucose log. [...] included. Patients BGL documented in this encounter [facility] 12-22-2024 Telephone encounter Note Please advise. [facility] 12-22-2024 Miscellaneous Notes Please advise. Name of caller: Ninfa Contact phone number: [phone] Relationship to Patient: [facility] Provider: KRANTHI Guerrero Practice: [facility] Endocrinology Chief Complaint/Reason for Call: Ninfa states [...] included. Faxed orders from ana maria to [facility] I have reviewed the pt's glucose log. [...] included. Patients BGL documented in this encounter [facility] 12-22-2024 Telephone encounter Note Name of caller: Ninfa Contact phone number: [phone] Relationship to Patient: [facility] Provider: KRANTHI Guerrero Practice: [facility] Endocrinology Chief Complaint/Reason for Call: Ninfa states she would like to know at what point should they hold the insulin regular (HumuLIN R) 500 UNIT/ML CONCENTRATED injection for the patient. Please review. Best time of day caller can be reached: any Patient advised that office/PCP has 24-48 business hours to return their call: Yes [facility] 12-22-2024 Telephone encounter Note Images from the original note were not included. Faxed orders from [facility] to [facility] 12-21-2024 History of Presen t illness Narrative Patient was verified by name and . Images from the original note were not included. [facility] [address] Dept: [phone] Dept Loc: [phone] Visit type: New Reason for Visit: New [...] without cholecystitis without obstruction BMI 50.0-59.9, adult ([facility]) 59 year old male referred by Rosy Ibarra CNP, re: calculus of gallbladder without cholecystitis without obstruction. Patient hospitalized 10/18/2024-10/23/2024 @ [facility] 2/2 acute cholecystitis. Blood sugars uncontrolled and [...] patient's first colonoscopy --referral previously placed to [facility] Advised patient to call office with new [...] cholecystitis without obstruction. He presents from facility, [facility] (residing since 2018). He has pmh DM2, morbid obesity, bipolar, schizophrenia, JOHN, lymphedema, HTN, diabetic neuropathy, and hx osteomyelitis of RLE with right AKA. Patient was hospitalized 10/18/2024-10/23/2024 at [facility] related to acute cholecystitis. Due to medical [...] to surgical intervention. He was referred to [facility]. Presently denies nausea and vomiting. Having mid [...] 10/18/2024 Priority: Medium NOY (acute kidney injury) (HCC) 12/31/2023 Priority: Medium Acinetobacter lwoffi infection 10/09/2023 Priority: Medium Bacteremia due to Gram-negative bacteria 10/09/2023 Priority: Medium Hypoglycemia due to insulin 10/07/2023 Priority: Medium Hypothermia, not associated with low environmental temperature 10/07/2023 Priority: Medium Sepsis without acute organ dysfunction ([facility]) 10/07/2023 Priority: Medium Abdominal pain 08/19/2023 Priority: Medium Upper abdominal pain 08/17/2023 Priority: Medium Chest pain 06/28/2023 Priority: Medium Chest pain, unspecified type 06/28/2023 Priority: Medium Hypertension 11/25/2020 Priority: Medium Hyperlipidemia 10/07/2021 Thickened endometrium 11/26/2020 Complex endometrial hyperplasia with atypia 11/26/2020 Diabetic gastroparesis associated with type 2 diabetes mellitus ([facility]) ([facility]) 11/26/2020 Endometrial carcinoma ([facility]) 11/25/2020 Endometrial hyperplasia 11/25/2020 Diabetic hyperosmolar non-ketotic state ([facility]) ([facility]) 11/25/2020 Chronic acquired lymphedema 11/25/2020 Chronic osteomyelitis ([facility]) ([facility]) 11/25/2020 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 ([facility]) 11/25/2020 Type 2 diabetes mellitus with hyperglycemia, with long-term current use of insulin ([facility]) 11/25/2020 Hyperglycemia 11/25/2020 S/P AKA (above knee amputation) unilateral, right ([facility]) 11/25/2020 Ileus ([facility]) ([facility]) 09/27/2020 Esophagitis 09/22/2020 Nausea and vomiting 09/22/2020 Diabetic foot infection ([facility]) 06/14/2019 Post-menopausal bleeding 05/16/2019 Cellulitis 01/17/2019 Class 3 severe obesity due to excess calories with serious comorbidity and body mass index (BMI) of 60.0 to 69.9 in adult ([facility]) 01/13/2019 Left leg cellulitis 01/11/2019 [...] negative sonographic Caldwell's sign reported by the tomography technologist. Pancreas: Largely obscured by bowel gas. [...] Physician MD MUNIZ REYNALDO C. Accession Number [id number] CPT4 Codes 45286 () Reason For Exam nausea, diabetees Report [...] 4:03 PM 12/21/24 documented in this encounter [facility] 12-21-2024 Instructions JEREMY Kinsey CNP - 12/21/2024 8:30 AM EST --Please call office with any questions or concerns! [phone] --Schedule EGD (upper endoscopy) and colonoscopy for [...] be sent through Care Everywhere.Upper GI Endoscopy (Russian)Colonoscopy (Russian)documented in this encounter [facility] rocket staff 12-21-2024 Telephone encounter Note I have reviewed [...] will assist with stabilizing blood sugars. Thanks! [facility] [employer] rocket staff 12-20-2024 Telephone encounter Note Images from the original note were not included. Patients BGL [facility] [employer] rocket staff 12-07-2024 History of Presen t illness Narrative Images from the original note were not included. Lilo Rizo MD General Surgery Outpatient Post-Operative/Follow Up Office Note Patient ID: Will Jacinto [id number] 59 y.o. 1965 Interval History 12/07/24: Patient [...] (HCC) Muscle weakness Osteomyelitis (HCC) Osteomyelitis (HCC) 2018 RLE Other lack of coordination Other specified soft tissue disorders Other symbolic dysfunctions Schizophrenia (HCC) Sleep apnea no CPAP Venous insufficiency Past Surgical History: Procedure Laterality Date ABCESS DRAINAGE Right 09/09/2018 FOOT; [facility] COLONOSCOPY 09/19/[address] Hyde DILATION AND CURETTAGE OF UTERUS 05/18/2019 HYSTEROSCOPY 12/23/2021 LEG AMPUTATION THROUGH KNEE Right 06/16/2019 UPPER GASTROINTESTINAL ENDOSCOPY N/A 06/29/2023 Dr Sergio Sibley at [facility]; no specimens WISDOM TOOTH EXTRACTION Medications Prior [...] the skin 3 times daily. 11/28/24 Yes Margo Guerrero APRN - TELEPHOTO ENGINEER lisinopril 40 MG tablet Take 0.5 tablets [...] No Stress: No Stress Concern Present (10/19/2024) [employer] [place] [employer]ational [employer] - Occupational Stress Questionnaire Feeling of Stress : Only a little Social Connections: Unknown (10/19/2024) Social Connection and Isolation Panel [NHANES] Frequency of Communication with Friends and Family: Three times a week Frequency of Social Gatherings with Friends and Family: Once a week Attends Buddhist Services: 1 to 4 times per year [...] Behavior normal. Orders Placed This Encounter Procedures [facility] Program ASSESSMENT AND PLAN: This [...] education and counseling. documented in this encounter [facility] 12-06-2024 Telephone encounter Note LVM with senior care(primary number in account) for [employer] to call back to schedule follow up appointment with Herber. [facility] 12-06-2024 Miscellaneous Notes LVM with senior care(primary number in account) for [employer] to call back to schedule follow up [...] sooner with provider. documented in this encounter [facility] 12-01-2024 Note [facility] 12-01-2024 Telephone encounter Note Images from the original note were not included. Faxed new insulin order to [facility] at fax #: [phone]. [facility] 12-01-2024 Miscellaneous Notes Images from the original note were not included. Faxed new insulin order to [facility] at fax #: [phone]. I have reviewed the pt's glucose log. [...] included. Patient's BGL documented in this encounter [facility] 12-01-2024 Note IMPRESSION: Sinus rhythm Abnormal R-wave progression, late transition Left ventricular hypertrophy Borderline prolonged QT interval Electronically Signed On 12-01-2024 00:32:34 EST by Aaron Burgos [facility] 11-30-2024 Note [facility] 11-28-2024 Telephone encounter Note I have reviewed the pt's glucose log. Based on interpretation of the FSBS data I recommend the following changes to the pt's antihyperglycemic regimen: Please increase Humulin u500 to 140 units three times daily before meals. Med rec updated: Yes [facility] 11-28-2024 Miscellaneous Notes I have reviewed [...] included. Patient's BGL documented in this encounter [facility] 11-28-2024 Telephone encounter Note Images from the original note were not included. Patients BGL [facility] 11-22-2024 Telephone encounter Note I have [...] until we ensure blood sugars remain stable. [facility] 11-22-2024 Telephone encounter Note Unable to reach Suri at [facility] to reschedule appt with Makayla Guerrero on 11/27/2024. Called [facility] again at [phone] and spoke to Quiana again. Rescheduled pt to 01/01/25 and per Nayan Arayah will call if there is a problem with this date/time. [facility] 11-22-2024 Miscellaneous Notes Unable to reach Suri at [facility] to reschedule appt with Makayla Guerrero on 11/27/2024. Called [facility] again at [phone] and spoke to Quiana again. Rescheduled pt to 01/01/25 and per Quiana Suri will call if there is a problem with this date/time. documented in this encounter [facility] 11-21-2024 Telephone encounter Note Called the senior care and spoke with the pts nurse nabil, [...] new logs in two weeks, she understood. [facility] 11-21-2024 Miscellaneous Notes Called the senior care and spoke with the pts nurse nabil, [...] included. Patient's BGL documented in this encounter [facility] 11-21-2024 Telephone encounter Note Images from the original note were not included. Patient's BGL [facility] 11-20-2024 Telephone encounter Note Addendum completed. Sending message to provider as FYI, please indicate if/when patient needs fu with provider to review. Will forward to staff to schedule if indicated. Thank you. [employer] 11-20-2024 Miscellaneous Notes Addendum completed. Sending message [...] sooner with provider. documented in this encounter [employer] rocket staff 11-19-2024 Telephone encounter Note I have reviewed the pt's glucose log. Based on interpretation of the FSBS data I recommend the following changes to the pt's antihyperglycemic regimen: Blood sugars are variable with 5 doses recently held. Can we clarify if patient has been sick or had decreased appetite that caused recent change in insulin needs? [employer] Work Phone: 11-19-2024 Miscellaneous Notes I have [...] included. Patient's BGL documented in this encounter [facility] rocket staff 11-15-2024 Telephone encounter Note Images from the original note were not included. Patient's BGL [facility] rocket staff 11-14-2024 Telephone encounter Note Noted. Request emailed to radiology team. [facility] rocket staff 11-14-2024 Miscellaneous Notes Noted. Request emailed to [...] sooner with provider. documented in this encounter [facility] staff 11-14-2024 History of Presen t illness Narrative Images from the original note were not included. Asuncion Valencia DIRECTOR OF COMMUNITY SERVICES[facility] General Surgery Outpatient Post-Operative/Follow Up Office Note Patient ID: Will Jacinto [id number] 59 y.o. 1965 This is a 59 [...] side (HCC) Anxiety disorder Bipolar 1 disorder ([facility]) Blood circulation, collateral Cellulitis chronic [...] soft tissue disorders Other symbolic dysfunctions Schizophrenia ([facility]) Sleep apnea no CPAP Venous insufficiency Past Surgical History: Procedure Laterality Date ABCESS DRAINAGE Right 09/09/2018 FOOT; [facility] COLONOSCOPY 09/19/[address] Hyde DILATION AND CURETTAGE OF UTERUS 05/18/2019 HYSTEROSCOPY 12/23/2021 LEG AMPUTATION THROUGH KNEE Right 06/16/2019 UPPER GASTROINTESTINAL ENDOSCOPY N/A 06/29/2023 Dr Sergio Sibley at [facility]; no specimens WISDOM TOOTH EXTRACTION Medications Prior [...] No Stress: No Stress Concern Present (10/19/2024) [employer] [place] [employer] - Occupational Stress Questionnaire Feeling of Stress : Only a little Social Connections: Unknown (10/19/2024) Social Connection and Isolation Panel [NHANES] Frequency of Communication with Friends and Family: Three times a week Frequency of Social Gatherings with Friends and Family: Once a week Attends Buddhist Services: 1 to 4 times per year [...] 11/14/2024 12:47 PM documented in this encounter [facility] 11-13-2024 Telephone encounter Note Patient appeared [...] and/or have scheduled follow-up sooner with provider. [facility] 11-12-2024 Hospital Discharg e instructions JEREMY Hilliard CNP - 11/12/2024 11:44 PM EST The drain coming out after 3+ weeks is okay at this time CT and labs are unremarkable patient can follow-up in the surgery office as an outpatient. The following attachments cannot be sent through Care Everywhere.Gallstones Discharge Instructions (Russian)documented in this encounter [facility] 11-12-2024 Emergency department Note Emergency Department Encounter [facility] ED Patient: Will Jacinto : 1965 Date [...] dictating provider for clarification.) Virgil Mederos MD [facility] Virgil Mederos MD 11/12/240 documented in this encounter [facility] 11-12-2024 Physician Emergency department Note Emergency Department Encounter [facility] ED Patient: Will Jacinto : 1965 Date [...] [employer] Virgil Mederos MD 11/12/242219 [employer] Phone: 11-10-2024 History of Presen t illness Narrative Images from the original note were not included. Asuncion Erik DIRECTOR OF COMMUNITY SERVICES[facility] General Surgery Outpatient Post-Operative/Follow Up Office Note Patient ID: Will Jacinto [id number] 59 y.o. 1965 This is a 59 [...] Acquired absence of other toe(s), unspecified side ([facility]) Anxiety disorder Bipolar 1 disorder ([facility]) Blood circulation, collateral Cellulitis chronic L lower leg COVID 12/08/2021 Depression Diabetes mellitus ([facility]) Type II, on insulin Disease of blood and blood forming organ Endometrial carcinoma ([facility]) 11/25/2020 Endometrial hyperplasia Foot ulcer ([facility]) Hx of blood clots RLE [...] ENDOSCOPY N/A 06/29/2023 Dr Sergio Sibley at [facility]; no specimens WISDOM TOOTH EXTRACTION Medications Prior [...] No Stress: No Stress Concern Present (10/19/2024) [employer] [place] [employer] - Occupational Stress Questionnaire Feeling of Stress : Only a little Social Connections: Unknown (10/19/2024) Social Connection and Isolation Panel [NHANES] Frequency of Communication with Friends and Family: Three times a week Frequency of Social Gatherings with Friends and Family: Once a week Attends Buddhist Services: 1 to 4 times per year [...] 11/10/2024 11:32 AM documented in this encounter [facility] 10-30-2024 Telephone encounter Note Released message to nurse [facility] 10-30-2024 Miscellaneous Notes Released message to nurse BG log reviewed. No changes to current meds. Send log as needed; otherwise, has appt 11/27 with Ana Maria. Please remind SNF to send BGL and MAR to visit. Thank you! Images from the original note were not included. Patient's BGL documented in this encounter [facility] 10-30-2024 Telephone encounter Note BG log reviewed. No changes to current meds. Send log as needed; otherwise, has appt 11/27 with Ana Maria. Please remind SNF to send BGL and MAR to visit. Thank you! [employer] Work Phone: 10-30-2024 Telephone encounter Note Images from the original note were not included. Patient's BGL [facility] rocket staff 10-24-2024 Telephone encounter Note Shayy called back we scheduled an appointment with Ana Maria on 11/27/24 and another one on 03/27/25 with Thalia. [facility] rocket staff 10-24-2024 Miscellaneous Notes Shayy called back we scheduled an appointment with Ana Maria on 11/27/24 and another one on 03/27/25 with Thalia. Called Lindsay Frias at [phone] and spoke to Quiana who states that I need to to speak to Suri, and she is currently out of the office. Per Quiana, she will have Suri call back to schedule. Direct phone number to the [place] office was given. Needs to be seen for follow up with any provider, will need [facility] to arrange transportation so that patient can be seen in office ans no longer available to manage over the phone documented in this encounter [facility] 10-24-2024 Hospital Discharg e instructions Baldev Ortiz MD - 10/24/2024 12:53 PM EST Please return to the Emergency Room if you have dizziness, shortness of breath, falls, new or worsening symptoms. documented in this encounter [facility] 10-24-2024 Emergency department Note Pt placed on bedpan, urine sample collected and sent to lab. [facility] 10-24-2024 Emergency department Note Pt placed [...] Pt is DNR-CCA. documented in this encounter [facility] 10-24-2024 Emergency department Note Pt provided with sandwich and pop, ok per Dr Mixon [facility] 10-24-2024 Emergency department Note Per pt he is not having any blood in his urine, his gallbladder drain is newly placed (3 days ago), pt states the drainage has been the same in color since it was placed, denies pain, denies drainage to site. Pt states has no complaints other than concern for low BG and feeling cold. [facility] 10-24-2024 Emergency department Note Pt arrives by [facility] for blood in urine and change in mental status. Pt has chronic lewis and has blood present. BP elevated, BG 154 (low per SNF because pt is normally in 300 range). Pt is DNR-CCA. [facility] 10-24-2024 Telephone encounter Note Called [facility] Altagracia at [phone] and spoke to Quiana who states that I need to to speak to Suri, and she is currently out of the office. Per Quiana, she will have [facility] call back to schedule. Direct phone number to the [place] office was given. [facility] 10-23-2024 Nurse Note Report called to Nabil GUILLORY at [facility]. [facility] 10-23-2024 Nurse Note Report called to Nabil GUILLORY at [facility]. Report called to [address] [place] [address] for transfer. Notified Lisa Lopes APRN and Dr. Thomas regarding patients BS. New orders placed. documented in this encounter [facility] 10-23-2024 Note Formatting of this n ote might be different from the original. Discharge med list transmitted to return back to [facility] via [facility] per TCC request. [facility] 10-23-2024 Note Formatting of this n ote might be different from the original. Discharge med list transmitted to return back to [facility] via [facility] per TCC request. [facility] 10-23-2024 Miscellaneous Notes Discharge med list transmitted to return back to [facility] via [facility] per TCC request. Asked by [facility] to set transport to [facility]. The BLS Vehicle you requested for Will Batista in unit/room [facility] [id number] on 10/23/2024 is scheduled to arrive at 2:30pm EST! [facility] is handling this ride and you can contact them at . Pt, nurse, unit sec, TCC, and facility informed of time. DC orders in and signed by Dr. Thomas. DIRECTOR MEDICAL SURGICAL set up transport. [employer] [facility] . DC back to [facility] in stable condition. . Problem: Knowledge Deficit [...] Maintained or Improved Outcome: Progressing Did update [facility] via careport that attending would like patient to return to their facility tomorrow on po antibiotics. Will have TCC coverage for tomorrow follow for reply. Patient is shelter at the facility and does not need auth to return. Care Management Progress Note Pt remains on 2E. Endo, ID, gen surg, and gastro following. Biliary drain in place, culture in process. Receiving IV ATB. Fecal occult stool positive. Discharge plan is back to [facility] when medically ready. He is a bedhold and will not need auth to return unless he goes back as skilled. airport manager to follow and assist as needed. Length of Stay (Days): 2 GMLOS: 3.5 Problem: Potential for Compromised Skin Integrity Goal: Skin Integrity is Maintained or Improved Outcome: Progressing Problem: Urinary Incontinence Goal: Perineal skin integrity is maintained or improved Outcome: Progressing Sent updated notes to return back to [facility] per TCC request. Await review and response regarding ability to accept. TCC notified. Referral placed to return back to [facility] via [facility] per TCC request. Await review and response regarding ability to accept. TCC notified. Care Managment Initial Assessment Date: 10/19/2024 Patient Name: Will Jacinto : 1965 Patient Information Source of Information: Patient Cognition/Language: WFL - Within Functional Limits Permission given to speak with patient customer service representative teacher/caregiver as indicated: Confirmation of Payer with patient/family: Payer Name: : Confirmation of Primary Care Physician: Primary Caregiver: Other (Comment) (Facility staff) If assistance needed, confirmed caregiver ready, willing and able to care for patient at discharge: Confirmed with: Living Arrangements Current Residence: Number of Floors Number of Entry Steps: Bed/Bath Levels: Facility: Senior Living/Residental Care Facility Name: [facility] Plan to Return: Yes Lives with: Other (Comment) ([facility]) Support Systems: Home care staff Activities of [...] Plan Patient expects to be discharged to: [facility] Discharge Planning Actions: Continue to follow Patient's Choice Rights and [employer] and Collaborative Relationships Disclosed as Indicated for Post-Acute Care: Interdisciplinary Team Engagement: Social Work Referral for: Additional Information: Pt admitted to for gall bladder inflammation. Met with pt at bedside, introduced self and explained role. Pt has insurance with RX coverage, active with PCP. He is a LTC resident at [facility] and would like to return to facility. Pt requires assistance with all ADLS. Requires a deedee for transfers. Tasked EYELET ROW MARKER to send return referral to [facility]. Gen surg and ID following. Endocrinology consulted. Receiving IV ATB and fluids. NPO at this time. Pt to have biliary drain placed today. Fecal occult stool positive. Discharge plan will be to return to [facility] once medically ready. airport manager to follow and assist as needed. Gill [...] improved Outcome: Progressing documented in this encounter [facility] 10-23-2024 Note Formatting of this n ote might be different from the original. Asked by [facility] to set transport to [facility]. The BLS Vehicle you requested for Will M. in unit/room [place] [id number] on 10/23/2024 is scheduled to arrive at 2:30pm EST! [facility] is handling this ride and you can contact them at . Pt, nurse, unit sec, TCC, and facility informed of time. [facility] 10-23-2024 Note Formatting of this n ote might be different from the original. Asked by [facility] to set transport to [facility]. The BLS Vehicle you requested for Will M. in unit/room [place] [id number] on 10/23/2024 is scheduled to arrive at 2:30pm EST! [facility] is handling this ride and you can contact them at . Pt, nurse, unit sec, TCC, and facility informed of time. [facility] 10-23-2024 History of Presen t illness Narrative Patient discharged before I was able to round on patient. Patient admitted to [facility] with acute cholecystitis and treated medically. Patient uses U500 130 units tidac and Lantus 47 units bid at home. Insulin doses are reduced due to hospitalization. Blood sugars reviewed and remain elevated. Recommendations: Discharge patient on home doses of: u500 130 units tidac, Lantus 47 units bid Images from the original note were not included. [facility] - Infectious Diseases Attending [...] and Affect: Mood normal. Labs: Recent Labs 10/21/2413610/22/245310/23/24126 NA 135* 139 137 K 3.3* 3.3* 3.4* CL 100 104 101 CO2 23 24 29 BUN 48* 35* 21 CREATININE 1.35 1.05 0.84 GLUCOSE 112* 148* 214* CALCIUM 8.8 8.7 8.7 PROT 6.6 6.4 6.1* BILITOT 0.3 0.3 0.3 ALKPHOS 135 127 115 AST 20 19 18 ALT 42 32 27 Recent Labs 10/21/2413610/22/244 10/23/24 012 WBC 11.9* 9.7 7.5 HGB 10.2* 9.7* 9.5* HCT 31.6 30.0 29.9 PLT 396 419 407 LYMPHOPCT 15.3 15.9 24.6 MONOPCT 6.8 8.2 10.6 BASOPCT 0.6 0.5 0.7 NEUTROABS 8.9* 7.1 4.5 Crp 261.6 Micro: No results for input(s): "COVID19" in the last 72 hours. 10/19/2024 1508 10/19/2024 1511 Aerobic and Anaerobic Culture with Stain [[id number]] Bile In process Component Value No component results 10/19/2024 1508 10/19/2024 2159 Culture, Aerobic Bacteria with Gram Stain [[id number]] Bile Preliminary result Component Value Culture Culture in progress P Gram Stain Result Few Polymorphonuclear leukocytes per low power field P No organisms seen P 10/19/2024 1508 10/19/2024 1511 Anaerobic culture [[id number]] Bile In process Component Value No component results 10/19/2024 1352 10/20/2024 1147 Culture, Aerobic Bacteria with Gram Stain [[id number]] Bile from Gallbladder Preliminary result Component Value Culture No growth at 18-24 hours P Gram Stain Result Few Polymorphonuclear leukocytes per low power field P No organisms seen P 10/19/2024 1352 10/19/2024 1415 Aerobic and Anaerobic Culture with Stain [[id number]] Bile from Gallbladder In process Component Value No component results 10/19/2024 1352 10/19/2024 1415 Anaerobic culture [[id number]] Bile from Gallbladder In process Component Value No component results 10/19/2024 0155 10/19/2024 0207 Occult blood, stool [[id number]] (Abnormal) Stool from Per Rectum Final result Component Value Fecal occult blood Positive Abnormal 10/18/2024 2343 10/20/2024 0735 Urine culture [[id number]] Urine, Clean Catch Final result Component Value Urine Culture Insignificant growth based on current clinical guidelines Lines: PIV site ok Radiography/Echo/Other: US guided percutaneous peritoneal or retroperitoneal fluid collection drainage [[id number]] Collected: 10/19/241420 Order Status: Completed Updated: 10/19/241422 [...] advanced. Subcutaneous tract was dilated. An 8 Georgian drainage catheter advanced over the wire. The catheter was attached to a bag. A dressing was applied. Impression: Successful placement of a drainage catheter into the gallbladder using ultrasound guidance. Report Dictated on Electronically Signed By: Alfredito Baumann MD Electronically Signed Date/Time: 10/19/2024 2:22 PM EST US abdomen limited [[id number]] Collected: 10/18/242011 Order Status: Completed Updated: 10/18/242021 [...] PM EST CT abdomen pelvis w contrast [[id number]] Collected: 10/18/241904 Order Status: Completed Updated: 10/18/241913 Narrative: [facility] 1965 [id number] Exam Date/Time: 10/18/2024 17:21 Procedure: CT ABDOMEN [...] chest angiogram w and/or wo IV contrast [[id number]] Collected: 10/18/241856 Order Status: Completed Updated: 10/18/241912 Narrative: Patient Name: WILL JACINTO : [address] [facility]#: [id number] Exam Date/Time: 10/18/2024 17:20 Procedure: CT CHEST [...] from the original note were not included. [facility] Wound Care Progress Note Will Jacinto AGE: [...] ENDOSCOPY N/A 06/29/2023 Dr Sergio Sibley at [facility]; no specimens WISDOM TOOTH EXTRACTION FAMILY HISTORY [...] loss Fluid Accumulation: Moderate to Severe Extremities Signal Maintenance Technician Strength: Not Performed Nutrition Assessment: Pt is [...] most recently 6.9% (10/19/24). Pt resides at [facility]. It seems that pt has little control [...] (kg): 53 kg Total Energy Requirements (kcals/day): 6278-2598 kcals (28-32 kcals/kg) Weight Used for Protein [...] lb) (02/11/24) % Weight Change (Calculated): 15.2 [place] Body Weight (lbs) (Calculated): 130 lbs [place] Body Weight (Kg) (Calculated): 59 kg % [place] Body Weight (Calculated): 256.9 % BMI (kg/m2) (Calculated): 53.9 Weight Adjustment For: Amputation % Weight Adjustment: 10.1 - AKA Total Adjusted Percentage (Calculated): 10.1 Adjusted [place] Body Weight (lbs) (Calculated): 116.9 lbs Adjusted [place] Body Weight (kg) (Calculated): 53.14 kg Adjusted [...] Continue current diet Fernanda Chappell RD Contact: *[phone] or via Secure Chat Hospitalist Progress Note 10/22/2024 Subjective: Admit Date: 10/18/2024 PCP: Jared Guzman Room#: [id number] A BRIEF HOSPITAL COURSE: Admitted for abdominal [...] lower leg COVID 12/08/2021 Depression Diabetes mellitus ([facility]) Type II, on insulin Disease [...] insufficiency LABS: CBC: Recent Labs 10/20/24 0642 10/21/2413610/22/24 005 WBC 13.4* 11.9* 9.7 RBC 3.85 [...] 11 LIVER PROFILE: Recent Labs 10/20/24 0642 10/21/2413610/22/24 0054 AST 20 20 19 ALT 53 [...] Primary Emergency Contact: Jovana Quesada (POA) Relation: Nidarrell Secondary Emergency Contact: Carola Lubin Mobile Relation: Other Álvaro Thomas MD Division of Hospitalist Medicine [facility] [place] Hospitalist Progress Note 10/21/2024 Subjective: Admit Date: 10/18/2024 PCP: Jared Guzman Room#: [id number] A BRIEF HOSPITAL COURSE: Admitted for abdominal [...] side (HCC) Anxiety disorder Bipolar 1 disorder ([facility]) Blood circulation, collateral Cellulitis chronic L lower leg COVID 12/08/2021 Depression Diabetes mellitus ([facility]) Type II, on insulin Disease of blood and blood forming organ Endometrial carcinoma ([facility]) 11/25/2020 Endometrial hyperplasia Foot ulcer ([facility]) Hx of blood clots RLE prior to amputation Hyperlipidemia Hypertension Lymphedema 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, RLE Morbidly obese ([facility]) Muscle weakness Osteomyelitis (HCC) Osteomyelitis (HCC) 2019 RLE Other lack of coordination Other specified soft tissue disorders Other symbolic dysfunctions Schizophrenia ([facility]) Sleep apnea no CPAP Venous insufficiency LABS: CBC: Recent Labs 10/19/24 0343 10/20/24 0642 10/21/24 013 WBC 21.8* 13.4* 11.9* RBC 3.94 3.85 3.73 HGB 10.9* 10.5* 10.2* HCT 34.4 33.0 31.6 MCV 87.3 85.7 84.7 RDW 14.5 13.9 13.4 PLT 339 353 396 BMP: Recent Labs 10/19/24 0343 10/20/24 0642 10/21/24 013 NA 135* 133* 135* K 3.6 3.6 [...] day course - wok on DC with case technician - am labs, replace lytes prn - PT/OT/CM/SW - delirium precautions: increase activity - DVT prophylaxis: enoxaparin and encourage ambulation Advance Directive: DNR-CCA Anticipated Discharge Extended Emergency Contact Information Primary Emergency Contact: Jovana Quesada (POA) Relation: Niece Secondary Emergency Contact: Carola Lubin Mobile Relation: Other Álvaro Thomas MD Division of Hospitalist Medicine [facility] [place] Images from the original note were not included. Attending Attestation [facility] - General Surgery Patient Name: Will Jacinto [...] dry, and intact Data: CBC: Recent Labs 10/19/2434210/20/2464110/21/24136 WBC 21.8* 13.4* 11.9* HGB 10.9* 10.5* 10.2* HCT 34.4 33.0 31.6 PLT 339 353 396 BMP: Recent Labs 10/19/2434210/20/2464110/21/24136 NA 135* 133* 135* K 3.6 3.6 3.3* CL 102 98 100 CO2 22 21* 23 BUN 32* 48* 48* CREATININE 1.15 1.50 1.35 GLUCOSE 223* 461* 112* Hepatic: Recent Labs 10/19/2434210/20/2442 10/21/24 0137 AST 50* 20 20 ALT [...] from the original note were not included. [facility] Medical [facility] - Infectious Diseases Attending Progress Note Subjective: [...] 1511 Aerobic and Anaerobic Culture with Stain [[id number]] Bile In process Component Value No component results 10/19/2024 1508 10/19/2024 2159 Culture, Aerobic Bacteria with Gram Stain [[id number]] Bile Preliminary result Component Value Culture Culture in progress P Gram Stain Result Few Polymorphonuclear leukocytes per low power field P No organisms seen P 10/19/2024 1508 10/19/2024 1511 Anaerobic culture [[id number]] Bile In process Component Value No component results 10/19/2024 1352 10/20/2024 1147 Culture, Aerobic Bacteria with Gram Stain [[id number]] Bile from Gallbladder Preliminary result Component Value Culture No growth at 18-24 hours P Gram Stain Result Few Polymorphonuclear leukocytes per low power field P No organisms seen P 10/19/2024 1352 10/19/2024 1415 Aerobic and Anaerobic Culture with Stain [[id number]] Bile from Gallbladder In process Component Value No component results 10/19/2024 1352 10/19/2024 1415 Anaerobic culture [[id number]] Bile from Gallbladder In process Component Value No component results 10/19/2024 0155 10/19/2024 0207 Occult blood, stool [[id number]] (Abnormal) Stool from Per Rectum Final result Component Value Fecal occult blood Positive Abnormal 10/18/2024 2343 10/20/2024 0735 Urine culture [[id number]] Urine, Clean Catch Final result Component Value Urine Culture Insignificant growth based on current clinical guidelines Lines: PIV site ok Radiography/Echo/Other: US guided percutaneous peritoneal or retroperitoneal fluid collection drainage [[id number]] Collected: 10/19/241420 Order Status: Completed Updated: 10/19/241422 [...] advanced. Subcutaneous tract was dilated. An 8 Georgian drainage catheter advanced over the wire. The catheter was attached to a bag. A dressing was applied. Impression: Successful placement of a drainage catheter into the gallbladder using ultrasound guidance. Report Dictated on Electronically Signed By: Alfredito Baumann MD Electronically Signed Date/Time: 10/19/2024 2:22 PM EST US abdomen limited [[id number]] Collected: 10/18/242011 Order Status: Completed Updated: 10/18/242021 [...] PM EST CT abdomen pelvis w contrast [[id number]] Collected: 10/18/241904 Order Status: Completed Updated: 10/18/241913 [...] chest angiogram w and/or wo IV contrast [[id number]] Collected: 10/18/241856 Order Status: Completed Updated: 10/18/241912 [...] side (HCC) Anxiety disorder Bipolar 1 disorder ([facility]) Blood circulation, collateral Cellulitis chronic L lower leg COVID 12/08/2021 Depression Diabetes mellitus ([facility]) Type II, on insulin Disease of blood and blood forming organ Endometrial carcinoma ([facility]) 11/25/2020 Endometrial hyperplasia Foot ulcer ([facility]) Hx of blood clots RLE prior to amputation Hyperlipidemia Hypertension Lymphedema 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, RLE Morbidly obese ([facility]) Muscle weakness Osteomyelitis (HCC) Osteomyelitis (HCC) 2019 RLE Other lack of coordination Other specified soft tissue disorders Other symbolic dysfunctions Schizophrenia ([facility]) Sleep apnea no CPAP Venous insufficiency LABS: CBC: Recent Labs 10/18/24163910/19/24 03410/20/24 0642 WBC 25.9* 21.8* 13.4* RBC 4.28 [...] Thomas MD Division of Hospitalist Medicine Acute [facility] Department of Internal Medicine Division of Endocrinology, Diabetes, & Metabolism Endocrinology Note Patient Name: Will Jacinto : 1965 AGE: 58 y.o. Room[facility]: [facility] A Admission Date: 10/18/2024 Visit Date: 10/20/2024 Reason for Endocrine Consult: IDDM on u500 Provider/Team Requesting Consult: Shawna Estrada PCP: Jared Guzman Outpt Ctc Operator: Yes - Dr Lee- VV 10/27/2023 ASSESSMENT: [...] bid Outpt Follow Up-- Dr Lee or CUTTING MACHINE TENDER as available - message sent SUBJECTIVE/HPI: CHIEF COMPLAINT: Chief Complaint Patient presents with Abdominal Pain [facility] Pt presents with abd pain, diarrhea, chest pain. Pt presents aox4 speaking in full and complete sentences. Chest Pain Nausea Presented to ED after abdominal pain that started on Wednesday evening (10/17/2024) Found to have Acute Cholecyctitis that needs to be managed medically, patient is on u500 units at [facility] Type of DM: 2 Onset of DM: [...] found for: CHOLHDLRATIO No results found for: [id number] Lab Results Component Value Date TSH 1.037 12/31/2023 Radiology reportsas per the Radiologist Radiology: POCT glucose meter Result Date: 10/19/2024 Performed by: [facility], [address] [place] [id number] CLIA ID: [id number] POCT glucose meter Result Date: 10/19/2024 Performed by: [facility], [address] [place] [id number] CLIA ID: [id number] POCT glucose meter Result Date: 10/19/2024 Performed by: [facility], [address] [place] [address] CLIA ID: [id number] ECG 12 lead Sinus rhythm Left ventricular hypertrophy Anterior Q waves, possibly due to LVH Electronically Signed On 10-18-2024 23:06:53 EST by Sunitha Borja POCT glucose meter Result Date: 10/18/2024 Performed by: [facility], [address] [place] [address] CLIA ID: [id number] US abdomen limited Result Date: 10/18/2024 Patient Name: [facility]AC[facility]TO : 1965 [id number] Exam Date/Time: 10/18/2024 19:36 Procedure: US ABDOMEN [...] ENDOSCOPY N/A 06/29/2023 Dr Sergio Sibley at [facility]; no specimens WISDOM TOOTH EXTRACTION Allergy(ies): No [...] original note were not included. Attending Attestation [facility] Medical [facility] - Surgery [facility] Physicians Surgery Patient Name: Will Gilliam McKelly Date: 10/23/24 Patient seen and examined. Pain [...] answered. Lilo Rizo MD General Surgery Pager #[phone] 10:55 AM 10/23/2024 GENERAL SURGERY Progress Note [...] lower leg COVID 12/08/2021 Depression Diabetes mellitus ([facility]) Type II, on insulin Disease [...] (POA) Relation: Niece Secondary Emergency Contact: Carola Luibn Mobile Relation: Other Álvaro Thomas MD Division of Hospitalist Medicine [facility] Images from the original note were not included. PHYSICAL THERAPY [facility] Name/MRN: Maria Luisa Jacinto ([id number]) Date: 10/19/2024 PT evaluation orders received and chart review completed. Pt is a residential-care resident at [facility]. Per documentation this admission and on previous admissions, this patient is non-ambulatory, requires a deedee lift for transfers to a w/c at baseline and does not complete bed mobility. No acute PT needs identified. Rec return to ECF at discharge. Sandra De Guzman, PT documented in this encounter [facility] 10-23-2024 Note Formatting of this n ote might be different from the original. DC orders in and signed by Dr. Thomas. DIRECTOR MEDICAL SURGICAL set up transport. EYELET ROW MARKER tasked [facility] DC back to ECF in stable condition. . [facility] 10-23-2024 Note Formatting of this n ote might be different from the original. DC orders in and signed by Dr. Thomas. [facility] set up transport. EYELET ROW MARKER [facility] DC back to [facility]CF in stable condition. . [facility] 10-23-2024 Note [facility] 10-23-2024 Hospital course Narrative Discharge Summary Will [...] advanced. Subcutaneous tract was dilated. An 8 Georgian drainage catheter advanced over the wire. The [...] Your Medications These medications were sent to [facility] [address] [place] [id number] Hours: Wednesday to Wednesday 10 am to 6 pm amoxicillin-clavulanate 875-125 MG tablet DIET: Adult diet Regular; 4 carb choices (60 gm/meal); Low Fat (less than or equal to 50 gm/day); Low Fiber ACTIVITY: No restriction. COMPLEXITY OF FOLLOW UP: [x] Moderate Complexity: follow up within 7-14 calendar days (96077) [] Severe Complexity: follow up within 7 calendar days (00486) FOLLOW UP TESTING, PENDING RESULTS OR REFERRALS AT TRANSITIONAL CARE VISIT: [x] Yes [] No PENDING STUDIES: DISPOSITION: Skilled Facility FACILITY/HOME CARE AGENCY NAME: Follow up with Lilo Rizo MD [address] [facility] [phone] Schedule an appointment as soon as possible for a visit in 1 month(s) Drain follow up Jared Guzman [address] [facility] [address] Follow up in 1 week(s) [facility] Gastroenterology - [address] [address] Follow up for positive occult blood [...] 10/23/2024, 11:26 AM documented in this encounter [facility] 10-23-2024 Hospital Discharg e instructions Álvaro [...] Extended Emergency Contact Information Primary Emergency Contact: Quesada DARIHerminiaJovana Relation: Niece Secondary Emergency Contact: Carola Lubin Mobile Relation: Other Past Surgical History: Past Surgical History: Procedure Laterality Date ABCESS DRAINAGE Right 09/09/2018 FOOT; ACH COLONOSCOPY 09/19/[address] Hyde DILATION AND CURETTAGE OF UTERUS 05/18/2019 HYSTEROSCOPY 12/23/2021 LEG AMPUTATION THROUGH KNEE Right 06/16/2019 UPPER GASTROINTESTINAL ENDOSCOPY N/A 06/29/2023 Dr Sergio Sibley at [facility]; no specimens WISDOM TOOTH EXTRACTION Immunization History: [...] Weight: Wt Readings from Last 1 Encounters: 12/11/24 (!) 145 kg (320 lb) Mental Status: CHRISTY Patient Mental Status: oriented and alert IV Access: CHRISTY IV Access: None Nursing Mobility/ADLs: Walking Total assistance Transfer Total assistance Bathing Total assistance Dressing Total assistance Toileting Total assistance Feeding Total assistance Flask Maker Total assistance Med Delivery yes Wound Care [...] Status Date: Discharging to Facility/ Agency Name: [facility] Address:[address] [place] [address] Dialysis Facility (if applicable) Name: Address: Dialysis Schedule: Phone: Fax: Gusset Maker/Pipe Buffer signature: ICIAN SECTION Name: Will Jacinto Prognosis: fair Condition at Discharge: stable Rehab Potential (if transferring to Rehab): fair Recommended Labs or Other Treatments After Discharge: CBC/CMP in 3 days and in 1 week Follow up with surgery as scheduled. The individual is being admitted to a nursing facility directly from an [facility] or a unit of a hospital that is not operated by or licensed by [facility] under section 5119.14 or 5160-3-15.1 5 The individual requires the level of services provided by a nursing facility for the condition for which he or she was treated in the hospital and, Physician Certification: I certify the above information and transfer of Will Jacinto is necessary for the continuing treatment of the diagnosis listed and that he requires long-term facility for less than 30 days. Update Admission H&P: No change in H&P PHYSICIAN SIGNATURE: documented in this encounter [facility] 10-22-2024 Plan of care note Problem: Knowledge Deficit Goal: Patient/family/caregiver demonstrates understanding of disease process, treatment plan, medications, and discharge instructions Outcome: Progressing Problem: Potential for Compromised Skin Integrity Goal: Skin Integrity is Maintained or Improved Outcome: Progressing [facility] 10-22-2024 Plan of care note Problem: Knowledge Deficit Goal: Patient/family/caregiver demonstrates understanding of disease process, treatment plan, medications, and discharge instructions Outcome: Progressing Problem: Potential for Compromised Skin Integrity Goal: Skin Integrity is Maintained or Improved Outcome: Progressing [place] [facility] Note Formatting of this n ote might be different from the original. Did update [facility] that attending would like patient to return to their facility tomorrow on po antibiotics. Will have TCC coverage for tomorrow follow for reply. Patient is shelter at the facility and does not need auth to return. [facility] 10-21-2024 Note Formatting of this n ote might be different from the original. Did update [facility] that attending would like patient to return to their facility tomorrow on po antibiotics. Will have TCC coverage for tomorrow follow for reply. Patient is shelter at the facility and does not need auth to return. [facility] 10-20-2024 Nurse Note Report called to [address] [place] [phone] for transfer. [facility] 10-20-2024 Consult note Associated Order (s): IP WOUND CARE NURSE CONSULT TO EVAL [facility] Wound Care Prevention CONSULT Note Will Jacinto [...] doesn't get help in time, resides in [place] +skin sweats a lot requires daily baths. 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, RLE Morbidly obese ([facility]) Muscle weakness Osteomyelitis ([facility]) Osteomyelitis ([facility]) 2019 RLE Other lack of coordination Other specified soft tissue disorders Other symbolic dysfunctions Schizophrenia ([facility]) Sleep apnea no CPAP Venous insufficiency PAST SURGICAL HISTORY Past Surgical History: Procedure Laterality Date ABCESS DRAINAGE Right 09/09/2018 FOOT; ACH COLONOSCOPY 09/19/[address] Hyde DILATION AND CURETTAGE OF UTERUS 05/18/2019 HYSTEROSCOPY 12/23/2021 LEG AMPUTATION THROUGH KNEE Right 06/16/2019 UPPER GASTROINTESTINAL ENDOSCOPY N/A 06/29/2023 Dr Sergio Sibley at [facility]; no specimens WISDOM TOOTH EXTRACTION FAMILY HISTORY [...] Geronimo DO at 10/23/2024 1:39 PM EST [facility] rocket staff Work Phone: 10-20-2024 Consult note Associated Order (s): IP WOUND CARE NURSE CONSULT TO EVAL [facility] Wound Care Prevention CONSULT Note Will Jacinto 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, RLE Morbidly obese ([facility]) Muscle weakness Osteomyelitis ([facility]) Osteomyelitis ([facility]) 2019 RLE Other lack of coordination Other specified soft tissue disorders Other symbolic dysfunctions Schizophrenia ([facility]) Sleep apnea no CPAP Venous insufficiency PAST SURGICAL HISTORY Past Surgical History: Procedure Laterality Date ABCESS DRAINAGE Right 09/09/2018 FOOT; ACH COLONOSCOPY 09/19/[address] Hyde DILATION AND CURETTAGE OF UTERUS 05/18/2019 HYSTEROSCOPY 12/23/2021 LEG AMPUTATION THROUGH KNEE Right 06/16/2019 UPPER GASTROINTESTINAL ENDOSCOPY N/A 06/29/2023 Dr Sergio Sibley at [facility]; no specimens WISDOM TOOTH EXTRACTION FAMILY HISTORY [...] Jacinto : 1965 AGE: 58 y.o. Room[facility]: [facility] A Admission Date: 10/18/2024 Visit Date: 10/19/2024 Reason for Endocrine Consult: IDDM on u500 Provider/Team Requesting Consult: Shawna Estrada PCP: Jared Guzman Outpt Ctc Operator: Yes - Dr Lee- VV 10/27/2023 ASSESSMENT: [...] bid Outpt Follow Up-- Dr lee or CUTTING MACHINE TENDER as available - message sent SUBJECTIVE/HPI: CHIEF COMPLAINT: Chief Complaint Patient presents with Abdominal Pain Pt presents to er from [facility]. Pt presents with abd pain, diarrhea, chest pain. Pt presents aox4 speaking in full and complete sentences. Chest Pain Nausea Presented to ED after abdominal pain that started on Wednesday evening (10/17/2024) Found to have Acute Cholecyctitis that needs to be managed medically, patient is on u500 units at [facility] Type of DM: 2 Onset of DM: [...] found for: CHOLHDLRATIO No results found for: [id number] Lab Results Component Value Date TSH 1.037 12/31/2023 Radiology reportsas per the Radiologist Radiology: POCT glucose meter Result Date: 10/19/2024 Performed by: [facility], [address] [place] [id number] CLIA ID: [id number] POCT glucose meter Result Date: 10/19/2024 Performed by: [facility], [address] [facility] [address] CLIA ID: [id number] POCT glucose meter Result Date: 10/19/2024 Performed by: [facility], [address] [facility] [address] CLIA ID: [id number] ECG 12 lead Sinus rhythm Left ventricular hypertrophy Anterior Q waves, possibly due to LVH Electronically Signed On 10-18-2024 23:06:53 EST by Sunitha Borja POCT glucose meter Result Date: 10/18/2024 Performed by: [facility], [address] [facility] [address] CLIA ID: [id number] US abdomen limited Result Date: 10/18/2024 Patient 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, RLE Morbidly obese ([facility]) Muscle weakness Osteomyelitis ([facility]) Osteomyelitis ([facility]) 2019 RLE Other lack of coordination Other specified soft tissue disorders Other symbolic dysfunctions Schizophrenia ([facility]) Sleep apnea no CPAP Venous insufficiency Past Surgical History: Past Surgical History: Procedure Laterality Date ABCESS DRAINAGE Right 09/09/2018 FOOT; ACH COLONOSCOPY 09/19/[address] Hyde DILATION AND CURETTAGE OF UTERUS 05/18/2019 HYSTEROSCOPY 12/23/2021 LEG AMPUTATION THROUGH KNEE Right 06/16/2019 UPPER GASTROINTESTINAL ENDOSCOPY N/A 06/29/2023 Dr Sergio Sibley at [facility]; no specimens WISDOM TOOTH EXTRACTION Allergy(ies): No [...] from the original note were not included. [facility] - Infectious Diseases Attending Consult Note Reason [...] ENDOSCOPY N/A 06/29/2023 Dr Sergio Sibley at [facility]; no specimens WISDOM TOOTH EXTRACTION Current Medications: [...] mL IntraVENous 2 times per day Grace Ackreman MD 10 mL at 10/18/24 2227 sodium [...] file Stress: No Stress Concern Present (10/19/2024) [place] [facility] [employer] [facility] - Occupational Stress Questionnaire Feeling of Stress : Only a little Social Connections: Unknown (10/19/2024) Social Connection and Isolation Panel [NHANES] Frequency of Communication with Friends and Family: Three times a week Frequency of Social Gatherings with Friends and Family: Once a week Attends Buddhist Services: 1 to 4 times per year [...] "COVID19" in the last 72 hours. 10/19/2024 80802212/20/2023 1415 Culture, Aerobic Bacteria with Gram Stain [[id number]] Bile from Gallbladder In process Component Value No component results 10/19/2024 44380512/20/2023 1415 Aerobic and Anaerobic Culture with Stain [[id number]] Bile from Gallbladder In process Component Value No component results 10/19/2024 49729812/20/2023 1415 Anaerobic culture [[id number]] Bile from Gallbladder In process Component Value No component results 10/19/2024 88012812/20/2023 0207 Occult blood, stool [[id number]] (Abnormal) Stool from Per Rectum Final result Component Value Fecal occult blood Positive Abnormal 10/18/2024 97323012/20/2023 0022 Urine culture [[id number]] Urine, Clean Catch In process Component Value No component results Lines: PIV site looked ok Radiography/Echo/Other: US guided percutaneous peritoneal or retroperitoneal fluid collection drainage [[id number]] Resulted: 10/19/24 1334 Order Status: Sent Updated: 10/19/24 1405 US abdomen limited [[id number]] Collected: 10/18/242011 Order Status: Completed Updated: 10/18/242021 [...] PM EST CT abdomen pelvis w contrast [[id number]] Collected: 10/18/241904 Order Status: Completed Updated: 10/18/241913 [...] chest angiogram w and/or wo IV contrast [[id number]] Collected: 10/18/241856 Order Status: Completed Updated: 10/18/241912 Narrative: Patient Name: WILL JACINTO : [address] [facility]#: [id number] Exam Date/Time: 10/18/2024 17:20 Procedure: CT CHEST [...] Attestation [facility] - Surgery [facility] Physicians Surgery Patient Name: Will Jacinto Date: [...] answered. Lilo Rizo MD General Surgery Pager #[phone] 1:56 PM 10/19/2024 Department of General Surgery [...] denies fever/chills or nausea/vomiting. He resides at [facility] and notes that while oxygen has been [...] ENDOSCOPY N/A 06/29/2023 Dr Sergio Sibley at [facility]; no specimens WISDOM TOOTH EXTRACTION Current Medications: [...] file Stress: No Stress Concern Present (10/19/2024) [employer] [place] [facility] [employer] [facility] - Occupational Stress Questionnaire Feeling of Stress : Only a little Social Connections: Unknown (10/19/2024) Social Connection and Isolation Panel [NHANES] Frequency of Communication with Friends and Family: Three times a week Frequency of Social Gatherings with Friends and Family: Once a week Attends Buddhist Services: 1 to 4 times per year [...] Impression [facility] 1965 [id number] Exam Date/Time: 10/18/2024 19:36 Procedure: US ABDOMEN [...] EST Result History US abdomen limited (Order #[id number]) on 10/18/2024 - Order Result History Report [...] data. No Anne risk assessment data. No BURIAL AGENT Request ID assessment data. No [facility] sports book server ID assessment data. Breast Cancer Risk Navigation Events None Signed by Signed Time Phone Pager Joel Haddad MD 10/18/2024 20:21 Exam Information Status Exam Begun Exam Ended Final 10/18/2024 19:36 10/18/2024 20:00 External Results Report Open External Results Report Encounter View Encounter Study Details Open Study Details Order Transmittal Tracking US abdomen limited (Order #[id number]) on 10/18/24 Order Report US abdomen limited (Order #[id number]) on 10/18/24 CT abdomen pelvis w contrast Status: Final result Link to Procedure Log Procedure Log Orders Requiring a Screening Form Procedure Order Status Order ID Accession Number Form Status CT abdomen pelvis w contrast Completed [id number] Created PACS Images Show images for CT [...] History CT abdomen pelvis w contrast (Order #[id number]) on 10/18/2024 - Order Result History Report [...] data. No Anne risk assessment data. No BURIAL AGENT Request ID assessment data. No [facility] sports book server ID assessment data. Breast Cancer Risk Navigation [...] Tracking CT abdomen pelvis w contrast (Order #[id number]) on 10/18/[address] abdomen pelvis w contrast (Order #[id number]) on 10/18/24 CBC: Recent Labs 10/18/24 1640 [...] 7:30a-4:30p Wednesday-Wednesday After hours, please contact physician shoe salesperson. Associated Order(s): Inpatient consult to Gastroenterology Images [...] ENDOSCOPY N/A 06/29/2023 Dr Sergio Sibley at [facility]; no specimens WISDOM TOOTH EXTRACTION FAMILY HISTORY: [...] @IMAGES@ @RISRSLT@ POCT glucose meter Performed by: [facility], [address] [place] [address] CLIA ID: [id number] @[facility]@ @[facility]@ abdomen limited Final Result 1. Cholestasis, cholelithiasis, [...] provider for clarification.) documented in this encounter [facility] 10-20-2024 Note Formatting of this n ote might be different from the original. Care Management Progress Note Pt remains on 2E. Endo, ID, gen surg, and gastro following. Biliary drain in place, culture in process. Receiving IV ATB. Fecal occult stool positive. Discharge plan is back to [facility] when medically ready. He is a bedhold and will not need auth to return unless he goes back as skilled. airport manager to follow and assist as needed. Length of Stay (Days): 2 GMLOS: 3.5 [facility] 10-20-2024 Note Formatting of this n ote might be different from the original. Care Management Progress Note Pt remains on 2E. Endo, ID, gen surg, and gastro following. Biliary drain in place, culture in process. Receiving IV ATB. Fecal occult stool positive. Discharge plan is back to [facility] when medically ready. He is a bedhold and will not need auth to return unless he goes back as skilled. airport manager to follow and assist as needed. Length of Stay (Days): 2 GMLOS: 3.5 [facility] 10-20-2024 Note Problem: Potential f or Compromised Skin Integrity Goal: Skin Integrity is Maintained or Improved Outcome: Progressing Problem: Urinary Incontinence Goal: Perineal skin integrity is maintained or improved Outcome: Progressing [facility] 10-20-2024 Plan of care note Problem: Potential for Compromised Skin Integrity Goal: Skin Integrity is Maintained or Improved Outcome: Progressing Problem: Urinary Incontinence Goal: Perineal skin integrity is maintained or improved Outcome: Progressing [facility] 10-20-2024 Nurse Note Notified Lisa Lopes APRN and Dr. Thomas regarding patients BS. New orders placed. [facility] 10-20-2024 Note Formatting of this n ote might be different from the original. Sent updated notes to return back to [facility] via [facility] per [facility] request. Await review and response regarding ability to accept. TCC notified. [facility] 10-20-2024 Note Formatting of this n ote might be different from the original. Sent updated notes to return back to [facility] via [facility] per TCC request. Await review and response regarding ability to accept. TCC notified. [facility] 10-19-2024 Telephone encounter Note Needs to be seen for follow up with any provider, will need ECF to arrange transportation so that patient can be seen in office ans no longer available to manage over the phone [facility] 10-19-2024 Miscellaneous Notes Needs to be seen for follow up with any provider, will need ECF to arrange transportation so that patient can be seen in office ans no longer available to manage over the phone documented in this encounter [facility] 10-19-2024 Note Formatting of this n ote might be different from the original. Referral placed to return back to [facility] via [facility] per TCC request. Await review and response regarding ability to accept. TCC notified. [facility] 10-19-2024 Note Formatting of this n ote might be different from the original. Referral placed to return back to [facility] via [facility] per TCC request. Await review and response regarding ability to accept. TCC notified. [facility] 10-19-2024 Note Referral placed to r eturn back to [facility] via [facility] per TCC request. Await review and response regarding ability to accept. TCC notified. [facility] 10-19-2024 Note Formatting of this n ote might be different from the original. Care Managment Initial Assessment Date: 10/19/2024 Patient Name: Will Jacinto : 1965 Patient Information Source of Information: Patient Cognition/Language: WFL - Within Functional Limits Permission given to speak with patient customer service representative teacher/caregiver as indicated: Confirmation of Payer with patient/family: Payer Name: : Confirmation of Primary Care Physician: Primary Caregiver: Other (Comment) (Facility staff) If assistance needed, confirmed caregiver ready, willing and able to care for patient at discharge: Confirmed with: Living Arrangements Current Residence: Number of Floors Number of Entry Steps: Bed/Bath Levels: Facility: Senior Living[facility] Facility Name: [facility] Plan to Return: Yes Lives with: Other [...] Plan Patient expects to be discharged to: [facility] Discharge Planning Actions: Continue to follow Patient's Choice Rights and [employer] and Collaborative Relationships Disclosed as Indicated for Post-Acute Care: Interdisciplinary Team Engagement: Social Work Referral for: Additional Information: Pt admitted to for gall bladder inflammation. Met with pt at bedside, introduced self and explained role. Pt has insurance with RX coverage, active with PCP. He is a LTC resident at [facility] and would like to return to facility. Pt requires assistance with all ADLS. Requires a deedee for transfers. Tasked [employer] to send return referral to [facility]. Gen surg and ID following. Endocrinology consulted. Receiving IV ATB and fluids. NPO at this time. Pt to have biliary drain placed today. Fecal occult stool positive. Discharge plan will be to return to [facility] once medically ready. airport manager to follow and assist as needed. Gill Brown RN [facility] rocket staff 10-19-2024 Note Formatting of this n ote might be different from the original. Care Managment Initial Assessment Date: 10/19/2024 Patient Name: Will Jacinto : 1965 Patient Information Source of Information: Patient Cognition/Language: WFL - Within Functional Limits Permission given to speak with patient customer service representative teacher/caregiver as indicated: Confirmation of Payer with patient/family: Payer Name: [place]: Confirmation of Primary Care Physician: Primary Caregiver: Other (Comment) (Facility staff) If assistance needed, confirmed caregiver ready, willing and able to care for patient at discharge: Confirmed with: Living Arrangements Current Residence: Number of Floors Number of Entry Steps: Bed/Bath Levels: Facility: Senior Living[facility] Facility Name: [facility] Plan to Return: Yes Lives with: Other [...] Plan Patient expects to be discharged to: [facility] Discharge Planning Actions: Continue to follow Patient's Choice Rights and [employer] and Collaborative Relationships Disclosed as Indicated for Post-Acute Care: Interdisciplinary Team Engagement: Social Work Referral for: Additional Information: Pt admitted to for gall bladder inflammation. Met with pt at bedside, introduced self and explained role. Pt has insurance with RX coverage, active with PCP. He is a LTC resident at [facility] and would like to return to facility. Pt requires assistance with all ADLS. Requires a deedee for transfers. Tasked [facility] to send return referral to [facility]. Gen surg and ID following. Endocrinology consulted. Receiving IV ATB and fluids. NPO at this time. Pt to have biliary drain placed today. Fecal occult stool positive. Discharge plan will be to return to [facility] once medically ready. airport manager to follow and assist as needed. Gill Brown RN [facility] 10-19-2024 Consult note Associated Order (s): IP CONSULT TO ENDOCRINOLOGY Department of Internal Medicine Division of Endocrinology, Diabetes, & Metabolism Endocrinology Note Patient Name: Will Jacinto : 1965 AGE: 58 y.o. Room/Bed: B2-254/[facility] A Admission Date: 10/18/2024 Visit Date: 10/19/2024 Reason for Endocrine Consult: IDDM on u500 Provider/Team Requesting Consult: Shawna Estrada PCP: Jared Guzman Outpt Ctc Operator: Yes - Dr Lee- VV 10/27/2023 ASSESSMENT: [...] bid Outpt Follow Up-- Dr lee or CUTTING MACHINE TENDER as available - message sent SUBJECTIVE/HPI: CHIEF COMPLAINT: Chief Complaint Patient presents with Abdominal Pain Pt presents to er from [facility]. Pt presents with abd pain, diarrhea, chest pain. Pt presents aox4 speaking in full and complete sentences. Chest Pain Nausea Presented to ED after abdominal pain that started on Wednesday evening (10/17/2024) Found to have Acute Cholecyctitis that needs to be managed medically, patient is on u500 units at [facility] Type of DM: 2 Onset of DM: [...] found for: CHOLHDLRATIO No results found for: [id number] Lab Results Component Value Date TSH 1.037 12/31/2023 Radiology reportsas per the Radiologist Radiology: POCT glucose meter Result Date: 10/19/2024 Performed by: [facility], [address] [place] [id number] CLIA ID: [id number] POCT glucose meter Result Date: 10/19/2024 Performed by: [facility], [address] [place] [id number] CLIA ID: [id number] POCT glucose meter Result Date: 10/19/2024 Performed by: [facility], [address] [place] [id number] CLIA ID: [id number] ECG 12 lead Sinus rhythm Left ventricular hypertrophy Anterior Q waves, possibly due to LVH Electronically Signed On 10-18-2024 23:06:53 EST by Sunitha Borja POCT glucose meter Result Date: 10/18/2024 Performed by: [facility], [address] [place] [address] CLIA ID: [id number] US abdomen limited Result Date: 10/18/2024 Patient [...] side (HCC) Anxiety disorder Bipolar 1 disorder ([facility]) Blood circulation, collateral Cellulitis chronic L lower leg COVID 12/08/2021 Depression Diabetes mellitus ([facility]) Type II, on insulin Disease of blood and blood forming organ Endometrial carcinoma ([facility]) 11/25/2020 Endometrial hyperplasia Foot ulcer ([facility]) Hx of blood clots RLE prior to amputation Hyperlipidemia Hypertension Lymphedema 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, RLE Morbidly obese ([facility]) Muscle weakness Osteomyelitis ([facility]) Osteomyelitis ([facility]CC) 2019 RLE Other lack of coordination Other specified soft tissue disorders Other symbolic dysfunctions Schizophrenia ([facility]) Sleep apnea no CPAP Venous insufficiency Past Surgical History: Past Surgical History: Procedure Laterality Date ABCESS DRAINAGE Right 09/09/2018 FOOT; ACH COLONOSCOPY 09/19/[address] Hyde DILATION AND CURETTAGE OF UTERUS 05/18/2019 HYSTEROSCOPY 12/23/2021 LEG AMPUTATION THROUGH KNEE Right 06/16/2019 UPPER GASTROINTESTINAL ENDOSCOPY N/A 06/29/2023 Dr Sergio Sibley at [facility]; no specimens WISDOM TOOTH EXTRACTION Allergy(ies): No [...] Lee MD at 10/20/2024 1:24 PM EST [facility] 10-19-2024 Consult note Associated Order (s): IP CONSULT TO INFECTIOUS DISEASES Images from the original note were not included. [facility] - Infectious Diseases Attending [...] ENDOSCOPY N/A 06/29/2023 Dr Sergio Sibley at [facility]; no specimens WISDOM TOOTH EXTRACTION Current Medications: Current Facility-Administered Medications Medication Dose Route Frequency Provider Last Rate Last Admin acetaminophen (Tylenol) tablet 650 mg 650 mg Oral q6h PRN Grace Ackerman MD Or acetaminophen (Tylenol) suppository 650 mg 650 mg Rectal q6h PRN Grace Ackerman MD amLODIPine (Norvasc) tablet 10 mg 10 mg Oral Daily rGace Ackerman MD 10 mg at 10/19/24 0947 [...] file Stress: No Stress Concern Present (10/19/2024) [employer] [place] [facility] - Occupational Stress Questionnaire Feeling of Stress : Only a little Social Connections: Unknown (10/19/2024) Social Connection and Isolation Panel [NHANES] Frequency of Communication with Friends and Family: Three times a week Frequency of Social Gatherings with Friends and Family: Once a week Attends Buddhist Services: 1 to 4 times per year [...] 92 -- (!) 90 % -- -- 12/11/24 1923 131/62 -- -- 92 18 (!) [...] "COVID19" in the last 72 hours. 10/19/2024 884386 1415 Culture, Aerobic Bacteria with Gram Stain [[id number]] Bile from Gallbladder In process Component Value No component results 10/19/2024 240216 1415 Aerobic and Anaerobic Culture with Stain [[id number]] Bile from Gallbladder In process Component Value No component results 10/19/2024 50657712/20/2023 1415 Anaerobic culture [[id number]] Bile from Gallbladder In process Component Value No component results 10/19/2024 40196912/20/2023 0207 Occult blood, stool [[id number]] (Abnormal) Stool from Per Rectum Final result Component Value Fecal occult blood Positive Abnormal 10/18/2024 86033212/20/2023 0022 Urine culture [[id number]] Urine, Clean Catch In process Component Value No component results Lines: PIV site looked ok Radiography/Echo/Other: US guided percutaneous peritoneal or retroperitoneal fluid collection drainage [[id number]] Resulted: 10/19/24 1334 Order Status: Sent Updated: 10/19/24 1405 US abdomen limited [[id number]] Collected: 10/18/242011 Order Status: Completed Updated: 10/18/242021 [...] PM EST CT abdomen pelvis w contrast [[id number]] Collected: 10/18/24 190 Order Status: Completed Updated: 10/18/241913 Narrative: Patient [...] chest angiogram w and/or wo IV contrast [[id number]] Collected: 10/18/241856 Order Status: Completed Updated: 10/18/241912 [...] benefits, and consideration of use of antimicrobials. [facility] 10-19-2024 Plan of care note Problem: [...] integrity is maintained or improved Outcome: Progressing [facility] 10-19-2024 Consult note Associated Order (s): IP CONSULT TO GENERAL SURGERY Images from the original note were not included. Attending Attestation [facility] - Surgery [facility] Physicians Surgery Patient Name: Will Jacinto Date: [...] answered. Lilo Rizo MD General Surgery Pager #[phone] 1:56 PM 10/19/2024 Department of General Surgery [...] denies fever/chills or nausea/vomiting. He resides at [facility] and notes that while oxygen has been 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, RLE Morbidly obese ([facility]) Muscle weakness Osteomyelitis ([facility]) Osteomyelitis ([facility]) 2019 RLE Other lack of coordination Other specified soft tissue disorders Other symbolic dysfunctions Schizophrenia ([facility]) Sleep apnea no CPAP Venous insufficiency Past Surgical History: Past Surgical History: Procedure Laterality Date ABCESS DRAINAGE Right 09/09/2018 FOOT; ACH COLONOSCOPY 09/19/[address] Hyde DILATION AND CURETTAGE OF UTERUS 05/18/2019 HYSTEROSCOPY 12/23/2021 LEG AMPUTATION THROUGH KNEE Right 06/16/2019 UPPER GASTROINTESTINAL ENDOSCOPY N/A 06/29/2023 Dr Sergio Sibley at [facility]; no specimens WISDOM TOOTH EXTRACTION Current Medications: [...] file Stress: No Stress Concern Present (10/19/2024) [employer] [place] [facility] [employer] - Occupational Stress Questionnaire Feeling of Stress : Only a little Social Connections: Unknown (10/19/2024) Social Connection and Isolation Panel [NHANES] Frequency of Communication with Friends and Family: Three times a week Frequency of Social Gatherings with Friends and Family: Once a week Attends Buddhist Services: 1 to 4 times per year [...] Impression Patient Name: WILL JACINTO : [address] [facility]#: [id number] Exam Date/Time: 10/18/2024 19:36 Procedure: US ABDOMEN [...] EST Result History US abdomen limited (Order #[id number]) on 10/18/2024 - Order Result History Report [...] data. No Anne risk assessment data. No BURIAL AGENT Request ID assessment data. No BURIAL AGENT sports book server ID assessment data. Breast Cancer Risk Navigation Events None Signed by Signed Time Phone Pager Joel Haddad MD 10/18/2024 20:21 Exam Information Status Exam Begun Exam Ended Final 10/18/2024 19:36 10/18/2024 20:00 External Results Report Open External Results Report Encounter View Encounter Study Details Open Study Details Order Transmittal Tracking US abdomen limited (Order #[id number]) on 10/18/24 Order Report US abdomen limited (Order #[id number]) on 10/18/24 CT abdomen pelvis w contrast Status: Final result Link to Procedure Log Procedure Log Orders Requiring a Screening Form Procedure Order Status Order ID Accession Number Form Status CT abdomen pelvis w contrast Completed [id number] Created PACS Images Show images for CT [...] History CT abdomen pelvis w contrast (Order #[id number]) on 10/18/2024 - Order Result History Report [...] data. No Anne risk assessment data. No BURIAL AGENT Request ID assessment data. No BURIAL AGENT sports book server ID assessment data. Breast Cancer Risk Navigation [...] Tracking CT abdomen pelvis w contrast (Order #[id number]) on 10/18/[address] abdomen pelvis w contrast (Order #[id number]) on 10/18/24 CBC: Recent Labs 10/18/24 1640 [...] 7:30a-4:30p Wednesday-Wednesday After hours, please contact physician shoe salesperson. 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, RLE Morbidly obese ([facility]) Muscle weakness Osteomyelitis ([facility]) Osteomyelitis ([facility]) 2019 RLE Other lack of coordination Other specified soft tissue disorders Other symbolic dysfunctions Schizophrenia ([facility]) Sleep apnea no CPAP Venous insufficiency PAST SURGICAL HISTORY: Past Surgical History: Procedure Laterality Date ABCESS DRAINAGE Right 09/09/2018 FOOT; ACH COLONOSCOPY 09/19/[address] Hyde DILATION AND CURETTAGE OF UTERUS 05/18/2019 HYSTEROSCOPY 12/23/2021 LEG AMPUTATION THROUGH KNEE Right 06/16/2019 UPPER GASTROINTESTINAL ENDOSCOPY N/A 06/29/2023 Dr Sergio Sibley at [facility]; no specimens WISDOM TOOTH EXTRACTION FAMILY HISTORY: [...] 25 mg, 25 mg, Oral, BID WC, Grcae Ackerman MD dextrose 5 % infusion, 100 [...] POCT glucose meter Performed by: Nati Vigil [facility], [address] [place] [id number] CLIA ID: [id number] [email or web address]@ @[email or web address]@ abdomen limited Final Result 1. Cholestasis, cholelithiasis, [...] to contact the dictating provider for clarification.) [employer] Phone: 10-18-2024 History and physical note Attending 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, RLE Morbidly obese ([facility]) Muscle weakness Osteomyelitis ([facility]) Osteomyelitis ([facility]) 2019 RLE Other lack of coordination Other specified soft tissue disorders Other symbolic dysfunctions Schizophrenia ([facility]) Sleep apnea no CPAP Venous insufficiency Past Surgical History: Past Surgical History: Procedure Laterality Date ABCESS DRAINAGE Right 09/09/2018 FOOT; ACH COLONOSCOPY 09/19/[address] Hyde DILATION AND CURETTAGE OF UTERUS 05/18/2019 HYSTEROSCOPY 12/23/2021 LEG AMPUTATION THROUGH KNEE Right 06/16/2019 UPPER GASTROINTESTINAL ENDOSCOPY N/A 06/29/2023 Dr Sergio Sibley at [facility]; no specimens WISDOM TOOTH EXTRACTION Social History: [...] - Date - 10/20/24 - Location - Skilled Nursing Care Facility (Non-Skilled) - Pending the following -treatment for acute cholecystitis Total time spent (which include face to face and non face to face encounters) : 55 minutes. Toxic drug monitoring/narrow therapeutic index drug monitoring : # Drug name : Megannox # Route administered : Subcutaneous # Method [...] - DO NOT do CPR, intubation] [_] [DNR-PYTHON JAVA DEVELOPER - Comfort care only] [_] DNR form [...] Grace Ackerman MD Division of Hospitalist Medicine [facility] [place] [employer] Work Phone: 10-18-2024 Note [employer] [facility] 10-18-2024 History and physical note Attending History 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, RLE Morbidly obese ([facility]) Muscle weakness Osteomyelitis ([facility]) Osteomyelitis ([facility]) 2019 RLE Other lack of coordination Other specified soft tissue disorders Other symbolic dysfunctions Schizophrenia ([facility]) Sleep apnea no CPAP Venous insufficiency Past Surgical History: Past Surgical History: Procedure Laterality Date ABCESS DRAINAGE Right 09/09/2018 FOOT; ACH COLONOSCOPY 09/19/[address] Hyde DILATION AND CURETTAGE OF UTERUS 05/18/2019 HYSTEROSCOPY 12/23/2021 LEG AMPUTATION THROUGH KNEE Right 06/16/2019 UPPER GASTROINTESTINAL ENDOSCOPY N/A 06/29/2023 Dr Sergio Sibley at [facility]; no specimens WISDOM TOOTH EXTRACTION Social History: [...] - Date - 10/20/24 - Location - [facility] Care Facility (Non-Skilled) - Pending the following [...] - DO NOT do CPR, intubation] [_] [DNR-PYTHON JAVA DEVELOPER - Comfort care only] [_] DNR form [...] Grace Ackerman MD Division of Hospitalist Medicine [facility] [place] documented in this encounter [facility] 10-18-2024 Emergency department Note EKG at bedside [facility] 10-18-2024 Emergency department Note EKG at bedside EKG called EMERGENCY DEPARTMENT ENCOUNTER Pt Name: Maria Luisa Jacinto Birthdate 1965 Date of evaluation: 10/18/2024 ED Provider: Dontrell Woodall DO CHIEF COMPLAINT Chief Complaint Patient presents with Abdominal Pain [facility] Pt presents with abd pain, diarrhea, [...] side (HCC) Anxiety disorder Bipolar 1 disorder ([facility]) Blood circulation, collateral Cellulitis chronic L lower leg COVID 12/08/2021 Depression Diabetes mellitus ([facility]) Type II, on insulin Disease [...] soft tissue disorders Other symbolic dysfunctions Schizophrenia ([facility]) Sleep apnea no CPAP Venous insufficiency SURGICAL HISTORY Past Surgical History: Procedure Laterality Date ABCESS DRAINAGE Right 09/09/2018 FOOT; ACH COLONOSCOPY 09/19/[address] Hyde DILATION AND CURETTAGE OF UTERUS 05/18/2019 HYSTEROSCOPY 12/23/2021 LEG AMPUTATION THROUGH KNEE Right 06/16/2019 UPPER GASTROINTESTINAL ENDOSCOPY N/A 06/29/2023 Dr Sergio Sibley at [facility]; no specimens WISDOM TOOTH EXTRACTION CURRENT MEDICATIONS [...] Culture. Procedure Abnormality Status --------- ------ Complete Urinalysis[[id number]] Please view results for these tests on [...] mg (4 mg IntraVENous Given 10/18/24 1645) sodium chloride 0.9 % bolus 500 mL (0 mL IntraVENous Stopped 10/18/24 1741) ondansetron (Zofran) injection 4 mg (4 mg IntraVENous Given 10/18/24 1645) iopamidol (Isovue-370) 76 % injection 100 mL (100 mL IntraVENous Given 10/18/24 1806) Aleks Coma Scale Best Eye Response: Spontaneous Best Verbal Response: Oriented Best Motor Response: Follows commands Aleks Coma Scale Score: 15 This is a [...] gen surgery [FG] [address] Charly lopez admit [FG] ED Course User Index [FG] Dontrell Woodall, Diagnoses as of 10/18/241935 Acute cholecystitis PROCEDURES: [...] DO 10/18/241935 Pt presents to er from [facility]. Pt presents with abd pain, diarrhea, chest pain. Pt presents aox4 speaking in full and complete sentences. documented in this encounter [facility] 10-18-2024 Emergency department Note EKG called [facility] 10-18-2024 Emergency department Triage note Pt presents to er from [facility]. Pt presents with abd pain, diarrhea, chest pain. Pt presents aox4 speaking in full and complete sentences. [facility] 10-18-2024 Physician Emergency department Note EMERGENCY DEPARTMENT ENCOUNTER Pt Name: Maria Luisa Jacinto Birthdate 1965 Date of evaluation: 10/18/2024 ED Provider: Dontrell Woodall DO CHIEF COMPLAINT Chief Complaint Patient presents with Abdominal Pain Pt presents to er from [facility]. 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, RLE Morbidly obese ([facility]) Muscle weakness Osteomyelitis ([facility]) Osteomyelitis ([facility]) 2019 RLE Other lack of coordination Other specified soft tissue disorders Other symbolic dysfunctions Schizophrenia ([facility]) Sleep apnea no CPAP Venous insufficiency SURGICAL HISTORY Past Surgical History: Procedure Laterality Date ABCESS DRAINAGE Right 09/09/2018 FOOT; ACH COLONOSCOPY 09/19/[address] Hyde DILATION AND CURETTAGE OF UTERUS 05/18/2019 HYSTEROSCOPY 12/23/2021 LEG AMPUTATION THROUGH KNEE Right 06/16/2019 UPPER GASTROINTESTINAL ENDOSCOPY N/A 06/29/2023 Dr Sergio Sibley at [facility]; no specimens WISDOM TOOTH EXTRACTION CURRENT MEDICATIONS [...] Culture. Procedure Abnormality Status --------- ------ Complete Urinalysis[[id number]] Please view results for these tests on [...] Sitting Lying Pulse: 93 90 92 Resp: 18 Temp: 36.9 C (98.4 F) TempSrc: [...] Response: Oriented Best Motor Response: Follows commands [place] Coma Scale Score: 15 This is a [...] Emergency Medicine Provider Dontrell Woodall DO 10/18/241935 [facility] [employer] 09-20-2024 Telephone encounter Note Faxed recommendation to [facility]. Thank you! [employer] rocket staff 09-20-2024 Miscellaneous Notes Faxed recommendation to [facility]. Thank you! Very high doses with variability and history severe hypoglycemia- would not change doses for now Images from the original note were not included. Patient's BGL documented in this encounter [facility] [employer] 09-19-2024 Telephone encounter Note Very high doses with variability and history severe hypoglycemia- would not change doses for now [employer] Phone: 09-19-2024 Telephone encounter Note Images from the original note were not included. Patient's BGL [facility] [employer] 09-13-2024 Telephone encounter Note Faxed info. To [facility]. [phone] [facility] [employer] 09-13-2024 Miscellaneous Notes Faxed info. To [facility]. [phone] Keep doses the same for now thank you Images from the original note were not included. Patient's BGL documented in this encounter [facility] [employer] 09-11-2024 Telephone encounter Note Keep doses the same for now thank you [employer] Phone: 09-11-2024 Miscellaneous Notes Keep doses the same for now thank you Images from the original note were not included. Patient's BGL documented in this encounter [facility] 09-11-2024 Telephone encounter Note Images from the original note were not included. Patient's BGL [facility] 08-09-2024 Miscellaneous Notes There's a more recent BGL that you also advised no changes. [facility]. Thank you! Please keep doses the same thank you Images from the original note were not included. Patient's BGL documented in this encounter [facility] 08-09-2024 Telephone encounter Note There's a more recent BGL that you also advised no changes. I faxed over recommendation to [facility]. Thank you! [facility] 08-09-2024 Telephone encounter Note [facility]. Thank you! [facility] 08-09-2024 Miscellaneous Notes [facility]. Thank you! Somewhat improved; would not make any changes at this point thank you Images from the original note were not included. Patient's BGL documented in this encounter [employer] 08-08-2024 Telephone encounter Note Somewhat improved; would not make any changes at this point thank you [employer] Phone: 08-08-2024 Miscellaneous Notes Somewhat improved; would not make any changes at this point thank you Images from the original note were not included. Patient's BGL documented in this encounter [employer] 08-08-2024 Telephone encounter Note Images from the original note were not included. Patient's BGL [employer] 08-04-2024 Telephone encounter Note Please keep doses the same thank you [employer] Phone: 08-04-2024 Miscellaneous Notes Please keep doses the same thank you Images from the original note were not included. Patient's BGL documented in this encounter [facility] 08-03-2024 Telephone encounter Note Images from the original note were not included. Patient's BGL [facility] 07-18-2024 Note Addended by: RADHA BUSBY on: 07/18/2024 02:17 PM Modules accepted: Orders [facility] 07-18-2024 Note Addended by: RADHA BUSBY on: 07/18/2024 02:17 PM Modules accepted: Orders [facility] 07-18-2024 Note Addended by: RADHA BUSBY on: 07/18/2024 02:17 PM Modules accepted: Orders [facility] 07-18-2024 Note Addended by: RADHA BUSBY on: 07/18/2024 02:17 PM Modules accepted: Orders [facility] 07-18-2024 [facility]phone encounter [facility] I relayed the message below and she verbalized understanding. [facility] 07-18-2024 Miscellaneous Notes Addended by: RADHA BUSBY on: 07/18/2024 02:17 PM Modules accepted: Orders [facility]. I relayed the message below and she verbalized understanding. Increase lantus to 45 twice daily thank you Patient is currently taking Humulin R U500(130 units TID) and lantus(30 units BID). Please confirm current u500 doses thank you Images from the original note were not included. Patient's BGL documented in this encounter [facility] 07-18-2024 Telephone encounter Note Increase lantus to 45 twice daily thank you [facility] [employer] Work Phone: 07-18-2024 Telephone encounter Note Patient is currently taking Humulin R U500(130 units TID) and lantus(30 units BID). [facility] 07-17-2024 Telephone encounter Note Please confirm current u500 doses thank you [facility] 07-17-2024 Telephone encounter Note Images from the original note were not included. Patient's BGL [facility] 05-02-2024 Telephone encounter Note Faxed recommendation to [facility]([phone]) Thank you! [facility] 05-02-2024 Miscellaneous Notes Faxed recommendation to [facility]([phone]) Thank you! A lot of fluctuation and patient is prone to severe hypoglycemia so would not change dose thank you BS Log for 04/25/24 - 05/01/24 scanned into media for review. Please advise. Thank you. documented in this encounter [employer] 05-02-2024 Telephone encounter Note A lot of fluctuation and patient is prone to severe hypoglycemia so would not change dose thank you [employer] Phone: 05-02-2024 Telephone encounter Note BS Log for 04/25/24 - 05/01/24 scanned into media for review. Please advise. Thank you. [employer] 02-24-2024 Telephone encounter Note Please ask to increase u500 insulin with meals to 85 units with meals thank you [employer] Phone: 02-24-2024 Miscellaneous Notes Please ask to increase u500 insulin with meals to 85 units with meals thank you Nabil returned call. Nabil Message released to patient as written. Radha Busby MA Retirement Sales Consultant Signed 2:13 PM Called [facility] to confirm current DM insulin regimen. Nurse [...] to the patient from encounter: N/A Called [facility] to confirm current DM insulin regimen. Nurse [...] included. Patient's BGL documented in this encounter [facility] 02-23-2024 Telephone encounter Note Nabil returned call. Nabil Message released to patient as written. Radha Busby MA Retirement Sales Consultant Signed 2:13 PM Called [facility] to confirm current DM insulin regimen. Nurse [...] relayed to the patient from encounter: N/A [facility] 02-23-2024 Miscellaneous Notes Nabil returned call. Nabil Message released to patient as written. Radha Busby MA Retirement Sales Consultant Signed 2:13 PM [facility] to confirm current DM insulin regimen. Nurse [...] patient from encounter: N/A Called [facility] to confirm current DM insulin regimen. Nurse [...] included. Patient's BGL documented in this encounter [facility] rocket staff 02-23-2024 Telephone encounter Note Called [facility] to confirm current DM insulin regimen. Nurse was unavailable and will call back. We have on file that patient is taking lantus 30 units two times daily and humulin R U500 70 units with meals. CAC can release message to confirm the doses. Please also inform them for future blood sugar logs to also send current med. List. Thank you! [facility] 02-22-2024 Telephone encounter Note Please see if we can get a the patient's current dm meds with the next fax so we can adjust. Thank you [facility] rocket staff Work Phone: 02-22-2024 Miscellaneous Notes Please see if we can get a the patient's current dm meds with the next fax so we can adjust. Thank you Images from the original note were not included. Patient's BGL documented in this encounter [facility] 02-22-2024 Telephone encounter Note Images from the original note were not included. 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 other toe(s), unspecified side ([facility]) Anxiety disorder Bipolar 1 disorder ([facility]) Blood circulation, collateral Cellulitis chronic L lower leg COVID 12/08/2021 Depression Diabetes mellitus ([facility]) Type II, on insulin Disease of blood and blood forming organ Endometrial carcinoma ([facility]) 11/25/2020 Endometrial hyperplasia Foot ulcer ([facility]) Hx of blood clots RLE prior to amputation Hyperlipidemia Hypertension Lymphedema 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 documented in this encounter [facility] 02-11-2024 Instructions Urszula Herring MA - 02/11/2024 10:10 AM EDT YOUR APPOINTMENT TODAY WAS WITH THE [facility], COPD CLINIC, PULMONARY AND SLEEP MEDICINE OFFICE. PLEASE CALL OUR OFFICE AT [phone] IF YOU HAVE NOT RECEIVED YOUR TEST [...] to make improvements. COVID-19 VACCINATION INFORMATION: PH. [phone] [email or web address] [facility] Central Scheduling [phone] [facility] Sleep Scheduling [phone] documented in this encounter [facility] 01-28-2024 Emergency department Note Report called to Lindsay Frias RN. Sonya Hill RN 01/28/2412 [facility] 01-28-2024 Emergency department Note Report called to Lindsay Frias RN. Sonya Hill RN 01/28/2412 Report to PASTORA Almendarez. Maylin Nolan RN 01/27/242020 DM transport arranged. ETA 3-4 hours. Maylin Nolan RN 01/27/242018 Patient quickly ate his sack lunch and two diet cokes. Shortly after patient complains of stomach pain. Provider notified. Maylin Nolan RN 01/27/242005 Sack lunch provided. Maylin Nolan RN 01/27/241923 documented in this encounter [facility] 01-27-2024 Emergency department Note Report to PASTORA Almendarez. Maylin Nolan RN 01/27/242020 [facility] 01-27-2024 Emergency department Note DM transport arranged. ETA 3-4 hours. Maylin Nolan RN 01/27/242018 [facility] 01-27-2024 Hospital Discharg e tayla Low [...] 200 units once daily. Follow-up with your nutrition partner in the office within the next week. documented in this encounter [facility] 01-27-2024 Emergency department Note Patient quickly ate his sack lunch and two diet cokes. Shortly after patient complains of stomach pain. Provider notified. Maylin Nolan RN 01/27/242005 [facility] 01-27-2024 Emergency department Note Sack lunch provided. Maylin Nolan RN 01/27/241923 [facility] 01-26-2024 Emergency department Note Patient provided sack lunch per his request. Denise Terry RN 01/26/242229 [facility] 01-26-2024 Emergency department Note Patient provided sack lunch per his request. Denise Terry RN 01/26/242229 I did not see or evaluate this patient in the ED. Mark Couch PA-C 01/26/242127 EMERGENCY DEPARTMENT ENCOUNTER Pt Name: Will Jacinto Birthdate 1965 Date of evaluation: 01/26/2024 ED Provider: Art Zeng DO CHIEF COMPLAINT Chief Complaint Patient presents with Hypoglycemia Patient [facility] sugar. Facility states that it was 48. Patient was fed and EMS sugar was 76. On arrival to room BGM was 102. HISTORY OF PRESENT ILLNESS (Location/Symptom, Timing/Onset, Context/Setting, Quality, Duration, Modifying Factors, Severity) Note limiting factors. HPI Will Jacinto is a 58 y.o. adult who presents to the emergency department due to hypoglycemia. Blood sugar was 48 at his senior care, he says they gave him some pudding, [...] side (HCC) Anxiety disorder Bipolar 1 disorder ([facility]) Blood circulation, collateral Cellulitis chronic L lower leg COVID 12/08/2021 Depression Diabetes mellitus ([facility]) Type II, on insulin Disease [...] ENDOSCOPY N/A 06/29/2023 Dr Sergio Sibley at [facility]; no specimens WISDOM TOOTH EXTRACTION CURRENT MEDICATIONS [...] Value Glucose 102 (*) Narrative: Performed by: [facility], [address] [place] [address] CLIA ID: [id number] POCT GLUCOSE METER UNSOLICITED RESULTS - Abnormal Glucose 111 (*) Narrative: Performed by: [facility], [address] [place] [id number] CLIA ID: [id number] POCT GLUCOSE METER UNSOLICITED RESULTS - Abnormal Glucose 101 (*) Narrative: [facility]: [facility], [address] [place] [id number] CLIA ID: [id number] All other labs were within normal range [...] Hypoglycemia PATIENT REFERRED TO: Jared Guzman [address] [facility] [address] [facility] [address] Schedule an appointment as soon as [...] Zeng DO 01/26/242215 documented in this encounter [facility] 01-26-2024 Hospital Discharg e instructions Art Zeng DO - 01/26/2024 10:15 PM EDT Call your doctor in the morning to schedule follow up. Eat regular meals and snacks. Return to the ED for recurrent symptoms or if any other problems arise. The following attachments cannot be sent through Care Everywhere.Low Blood Sugar Discharge Instructions, Adult (Russian)documented in this encounter [facility] 01-26-2024 Physician Emergency department Note I did not see or evaluate this patient in the ED. Mark Couch PA-C 01/26/242127 [facility] Work Phone: 01-26-2024 Physician Emergency department Note EMERGENCY DEPARTMENT ENCOUNTER Pt Name: Will Jacinto Birthdate 1965 Date of evaluation: 01/26/2024 ED Provider: Art Zeng DO CHIEF COMPLAINT Chief Complaint Patient presents with Hypoglycemia Patient reports from [facility] for low blood sugar. Facility states that it was 48. Patient was fed and EMS sugar was 76. On arrival to room BGM was 102. HISTORY OF PRESENT ILLNESS (Location/Symptom, Timing/Onset, Context/Setting, Quality, Duration, Modifying Factors, Severity) Note limiting factors. HPI Will Jacinto is a 58 y.o. adult who presents to the emergency department due to hypoglycemia. Blood sugar was 48 at his senior care, he says they gave him some pudding, 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, RLE Morbidly obese ([facility]) Muscle weakness Osteomyelitis ([facility]) Osteomyelitis ([facility]) 2019 RLE Other lack of coordination Other specified soft tissue disorders Other symbolic dysfunctions Schizophrenia ([facility]) Sleep apnea no CPAP Venous insufficiency SURGICAL HISTORY Past Surgical History: Procedure Laterality Date ABCESS DRAINAGE Right 09/09/2018 FOOT; [facility] COLONOSCOPY 09/19/[address] Hyde DILATION AND CURETTAGE OF UTERUS 05/18/2019 HYSTEROSCOPY 12/23/2021 LEG AMPUTATION THROUGH KNEE Right 06/16/2019 UPPER GASTROINTESTINAL ENDOSCOPY N/A 06/29/2023 Dr Sergio Sibley at [facility]; no specimens WISDOM TOOTH EXTRACTION CURRENT MEDICATIONS [...] Value Glucose 102 (*) Narrative: Performed by: [facility], [address] [place] [id number] CLIA ID: [id number] POCT GLUCOSE METER UNSOLICITED RESULTS - Abnormal Glucose 111 (*) Narrative: Performed by: [facility], [address] [place] [id number] CLIA ID: [id number] POCT GLUCOSE METER UNSOLICITED RESULTS - Abnormal Glucose 101 (*) Narrative: Performed by: [facility], [address] [place] [id number] CLIA ID: [id number] All other labs were within normal range [...] FINAL IMPRESSION 1. Hypoglycemia PATIENT REFERRED TO: aJred Guzman [address] [facility] [address] [facility] [phone] Schedule an appointment as soon as possible [...] signed) Emergency Medicine Provider Art Zeng DO 01/26/24 [address] [employer] 01-24-2024 Telephone encounter Note Pt again appeared on ED [facility] for CT AP 01/22/24; noting stable 8mm nodule; unchanged from 08/2023 report. Pt to keep appt for fu with Herber Ramos 02/11/24. Navigators to follow. [employer] 01-24-2024 Miscellaneous Notes Pt again appeared on ED [facility] for CT AP 01/22/24; noting stable 8mm nodule; unchanged from 08/2023 report. Pt to keep appt for fu with Herber Ramos 02/11/24. Navigators to follow. Defer CT chest (imaging has been cancelled) Keep appt schedule 02/11/24 to review next steps. Pt appeared on ED nuance search for lung nodules after CT AP 12/31/23 revealed the following: LOWER CHEST: An 8 mm nodule is present within the right middle lobe. This is unchanged since 08/08/2023. Referral: known to [facility]; [facility] n/a Pt is documented as never smoker Additional Risk Factors: na Planning CT low dose fu 01/06/24 will send to provider to confirm plan for fu. Pt has scheduled appt with Herber Ramos 02/11/24. 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, RLE Morbidly obese ([facility]) Muscle weakness Osteomyelitis (HCC) Osteomyelitis ([facility]) 2019 RLE Other lack of coordination Other specified soft tissue disorders Other symbolic dysfunctions Schizophrenia ([facility]) Sleep apnea no CPAP Venous insufficiency SURGICAL HISTORY Past Surgical History: Procedure Laterality Date ABCESS DRAINAGE Right 09/09/2018 FOOT; [facility] COLONOSCOPY 09/19/[address] Hyde DILATION AND CURETTAGE OF UTERUS 05/18/2019 HYSTEROSCOPY 12/23/2021 LEG AMPUTATION THROUGH KNEE Right 06/16/2019 UPPER GASTROINTESTINAL ENDOSCOPY N/A 06/29/2023 Dr Sergio Sibley at [facility]; no specimens WISDOM TOOTH EXTRACTION CURRENT MEDICATIONS [...] Culture. Procedure Abnormality Status --------- ------ Complete Urinalysis[[id number]] Abnormal Final result Please view results for [...] AM PATIENT REFERRED TO: Jared Guzman [address] [facility] [address] [facility] [phone] Schedule an appointment as soon as possible [...] contact the dictating provider for clarification.) Jaquan Morrsi DO (electronically signed) Emergency Medicine Provider Jaquan Morris DO 01/22/24 0633 Pt presents to er from snf for abd pain. documented in this encounter [facility] 01-22-2024 Emergency department Triage note Pt presents to er from snf for abd pain. [facility] 01-22-2024 Physician Emergency department Note EMERGENCY 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, RLE Morbidly obese ([facility]) Muscle weakness Osteomyelitis ([facility]) Osteomyelitis ([facility]) 2019 RLE Other lack of coordination Other specified soft tissue disorders Other symbolic dysfunctions Schizophrenia ([facility]) Sleep apnea no CPAP Venous insufficiency SURGICAL HISTORY Past Surgical History: Procedure Laterality Date ABCESS DRAINAGE Right 09/09/2018 FOOT; [facility] COLONOSCOPY 09/19/[address] Hyde DILATION AND CURETTAGE OF UTERUS 05/18/2019 HYSTEROSCOPY 12/23/2021 LEG AMPUTATION THROUGH KNEE Right 06/16/2019 UPPER GASTROINTESTINAL ENDOSCOPY N/A 06/29/2023 Dr Sergio Sibley at [facility]; no specimens WISDOM TOOTH EXTRACTION CURRENT MEDICATIONS [...] Culture. Procedure Abnormality Status --------- ------ Complete Urinalysis[[id number]] Abnormal Final result Please view results for [...] Temp: SpO2: 96% Diagnoses as of 01/22/24 06 Nausea and vomiting, unspecified vomiting type Cystitis Medications sodium chloride 0.9 % bolus 1,000 mL (0 mL IntraVENous Stopped 01/22/24409) ondansetron (Zofran) injection 4 mg (4 mg IntraVENous Given 3/16/24 0310) iopamidol (Isovue-370) 76 % injection 75 mL (75 mL IntraVENous Given 01/22/24 3256) cefTRIAXone (Rocephin) 1,000 mg in sodium chloride 0.9 % 50 mL IVPB Mini-Bag Plus (1,000 mg IntraVENous New Bag 01/22/24 4864) REVAL: CRITICAL CARE TIME None CONSULTS: None [...] AM PATIENT REFERRED TO: Jared Guzman [address] [facility] [address] [facility] [phone] Schedule an appointment as soon as [...] Medicine Provider Jaquan Morris DO 01/22/24 0633 [facility] 01-21-2024 Telephone encounter Note Called SNF and spoke to Marques who will leave a message for [facility]. Notified them the the pts care can be moved to the [place] office, and to just let the office know after her upcoming appt. [facility] 01-21-2024 Miscellaneous Notes Called SNF and spoke to Marques who will leave a message for Suri. Notified them the the pts care can be moved to the [place] office, and to just let the office know after her upcoming appt. Called SNF and spoke to Quiana who stated that the person that I need to talk to has left for the day and requested that I called tomorrow. Name of caller: Suri Contact phone number: [phone] Relationship to Patient: [facility] Provider: MD Jesus Practice: [facility] Endocrinology Chief Complaint/Reason for Call: Suri called in to see if Pt's F/U appt could be moved to the [place] location. Scheduling is into Jul. CAC did advise Suri and she stated she will keep the scheduled appt at [facility] location, but would like to know if Pt can be scheduled at the [place] location for his next f/u appt. Please advise Best time of day caller can be reached: Any Patient advised that office/PCP has 24-48 business hours to return their call: N/A documented in this encounter [facility] 01-20-2024 Telephone encounter Note Called SNF and spoke to Quiana who stated that the person that I need to talk to has left for the day and requested that I called tomorrow. [facility] 01-20-2024 Telephone encounter Note Name of caller: Suri Contact phone number: [phone] Relationship to Patient: [facility] Provider: MD Jesus Practice: [facility] Endocrinology Chief Complaint/Reason for Call: Suri called in to see if Pt's F/U appt could be moved to the [place] location. Scheduling is into Jul. CAC did advise Suri and she stated she will keep the scheduled appt at [facility] location, but would like to know if Pt can be scheduled at the [place] location for his next f/u appt. Please advise Best time of day caller can be reached: Any Patient advised that office/PCP has 24-48 business hours to return their call: N/A [facility] 01-20-2024 Telephone encounter Note Faxed recommendation to [facility]([phone]). [facility] 01-20-2024 Miscellaneous Notes Faxed recommendation to [facility]([phone]). Please keep doses the same thank you Images from the original note were not included. Patient's BGL documented in this encounter [facility] 01-19-2024 Telephone encounter Note Please keep doses the same thank you [facility] Work Phone: 01-19-2024 Telephone encounter Note Images from the original note were not included. Patient's BGL [facility] 01-04-2024 Telephone encounter Note Defer CT chest (imaging has been cancelled) Keep appt schedule 02/11/24 to review next steps. [facility] 01-04-[address]er [address] chest (imaging has been cancelled) Keep appt schedule 02/11/24 to review next steps. Pt appeared on ED nuance search for lung nodules after CT AP 12/31/23 revealed the following: LOWER CHEST: An 8 mm nodule is present within the right middle lobe. This is unchanged since 08/08/2023. Referral: known to [facility]; [facility] imaging n/a Pt is documented as never smoker Additional Risk Factors: na Planning CT low dose fu 01/06/24 will send to provider to confirm plan for fu. Pt has scheduled appt with Herberchava Ramos 02/11/24. documented in this encounter [facility] 01-03-2024 Telephone encounter Note Pt appeared on ED nuance search for lung nodules after CT AP 12/31/23 revealed the following: LOWER CHEST: An 8 mm nodule is present within the right middle lobe. This is unchanged since 08/08/2023. Referral: known to [facility]; [facility] imaging n/a Pt is documented as never smoker Additional Risk Factors: na Planning CT low dose fu 01/06/24 will send to provider to confirm plan for fu. Pt has scheduled appt with Herberchava Ramos 02/11/24. [facility] 12-29-2023 Emergency department Note Hans Larkin here for transfer back to facility. Sera Noguera RN 12/29/23 1009 [facility] rocket staff 12-29-2023 Emergency department Note Hans Larkin here for transfer back to facility. Sera Noguera RN 12/29/23 1009 Report from offload medic, pt assisted using using bedpan at this time. Awaiting squad DC back to SNF Denise Sutherland RN 12/29/23 0748 DM approx pick up and delivery driver 830a Bao Bullard EMT 12/29/23 0634 Pt passed PO challenge w/o difficulty. Todd Damon 12/29/23 0143 EMERGENCY DEPARTMENT ENCOUNTER Pt Name: Maria Luisa Jacinto Birthdate 1965 Date of evaluation: 12/28/2023 ED Provider: Ramsey Zavaleta DO CHIEF COMPLAINT Chief Complaint Patient presents with Nausea Vomiting [facility]V for 1 month. Upon [...] this timeframe. He is a resident at 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, RLE Morbidly obese ([facility]) Muscle weakness Osteomyelitis (HCC) Osteomyelitis ([facility]) 2019 RLE Other lack of coordination Other specified soft tissue disorders Other symbolic dysfunctions Schizophrenia ([facility]) Sleep apnea no CPAP Venous insufficiency SURGICAL HISTORY Past Surgical History: Procedure Laterality Date ABCESS DRAINAGE Right 09/09/2018 FOOT; [facility] COLONOSCOPY 09/19/[address] Hyde DILATION AND CURETTAGE OF UTERUS 05/18/2019 HYSTEROSCOPY 12/23/2021 LEG AMPUTATION THROUGH KNEE Right 06/16/2019 UPPER GASTROINTESTINAL ENDOSCOPY N/A 06/29/2023 Dr Sergio Sibley at [facility]; no specimens WISDOM TOOTH EXTRACTION CURRENT MEDICATIONS [...] Culture. Procedure Abnormality Status --------- ------ Complete Urinalysis[[id number]] Please view results for these tests on [...] Resident 12/29/23 0416 documented in this encounter [facility] 12-29-2023 Emergency department Note Report from offload medic, pt assisted using using bedpan at this time. Awaiting squad DC back to [facility] Denise Sutherland RN 12/29/23 0748 [facility] 12-29-2023 Emergency department Note DM approx pick up and delivery driver 830a AFTAB Hernandez 12/29/23 0634 [facility] 12-29-2023 Hospital Discharg e instructions Ramsey Zavaleta DO - 12/29/2023 3:34 AM EST Return to the ED with worsening vomiting, abdominal pain, or any other concerns. Follow-up with your PCP for reassessment. documented in this encounter [facility] 12-29-2023 Emergency department Note Pt passed PO challenge w/o difficulty. Todd Damon 12/29/23 0143 [facility] 12-28-2023 Miscellaneous Notes Emergency Department Encounter [...] for clarification.) Edwin Bustos MD Acute Care [facility] Edwin Bustos MD 12/29/23 0614 documented in this encounter [facility] 12-28-2023 Note Formatting of this n ote is different from the original. Emergency Department Encounter [facility] EMERGENCY DEPT Patient: Will Jacinto : 1965 [...] [employer] Edwin Bustos MD 12/29/23 0614 [employer] Phone: 12-28-2023 Note Formatting of this n ote is different from the original. Emergency Department Encounter [facility] EMERGENCY DEPT Patient: Will Jacinto : 1965 [...] [employer] Edwin Bustos MD 12/29/23 0614 [employer] Phone: 12-28-2023 Physician Emergency department Note EMERGENCY DEPARTMENT ENCOUNTER Pt Name: Maria Luisa Jacinto Birthdate 1965 Date of evaluation: 12/28/2023 ED Provider: Ramsey Zavaleta DO CHIEF COMPLAINT Chief Complaint Patient presents with Nausea Vomiting Pt [facility] due to N/V for 1 month. Upon [...] this timeframe. He is a resident at [facility] where his sugars are monitored regularly and [...] ENDOSCOPY N/A 06/29/2023 Dr Sergio Sibley at [facility]; no specimens WISDOM TOOTH EXTRACTION CURRENT MEDICATIONS [...] Culture. Procedure Abnormality Status --------- ------ Complete Urinalysis[[id number]] Please view results for these tests on [...] 0413 Ramsey Zavaleta DO Resident 12/29/23 0416 [facility] 12-28-2023 Telephone encounter Note Faxed recommendation to [facility]. Thank you! [facility] 12-28-2023 Miscellaneous Notes Faxed recommendation to [facility]. Thank you! Please keep doses the same thank you Images from the original note were not included. Patient's BGL documented in this encounter [facility] 12-28-2023 Telephone encounter Note Please keep doses the same thank you [facility] 12-28-2023 Telephone encounter Note Images from the original note were not included. Patient's BGL [facility] 12-23-2023 Procedure note Pt refused to finish last 2 hours of GES, only obtained intial 2 hrs of test. [facility] 12-23-2023 Procedure note Pt refused to finish last 2 hours of GES, only obtained intial 2 hrs of test. documented in this encounter [facility] 12-14-2023 Telephone encounter Note Called [facility] and was on an extended hold. I faxed over recommendation and noted for someone to give us a call to ensure they received the recommendation. Thank you! [facility] 12-14-2023 Miscellaneous Notes Called [facility] and was on an extended hold. I [...] same symptoms. Since patient is back to [facility], patient continues to have some emesis and [...] to Dr Lee. Please, advise Ninfa at [facility] of any medication changes and care advise. Phone number is [phone], ask for BEE Ocasio. Ninfa states she did fax over patient glucometer's for a week. Reason for Disposition Blood glucose > 300 mg/dL (16.7 mmol/L) AND two or more times in a row Protocols used: Diabetes - High Blood [id number] documented in this encounter [employer] rocket staff 12-13-2023 Telephone encounter Note Please tell staff that they can give 1/2 the usual dose of u500 insulin if the patient is not eating thank you [employer] rocket staff 12-13-2023 Telephone encounter Note Images from the original note were not included. Patient's BGL is below for your review. Thank you! [facility] rocket staff 12-13-2023 Telephone encounter Note S: Patient spoke with CAC nurse regarding high glucometer's and insulin dose questions B: Onset of symptoms/concern about a week A: Patient seen in ER on 12/09/2023 for same symptoms. Since patient is back to [facility], patient continues to have some emesis and [...] to Emilia Busby, to forward to Dr eLe. Please, advise Ninfa at [facility] of any medication changes and care advise. Phone number is [phone], ask for BEE Ocasio. Ninfa states she did fax over patient glucometer's for a week. Reason for Disposition Blood glucose > 300 mg/dL (16.7 mmol/L) AND two or more times in a row Protocols used: Diabetes - High Blood Nctas-[id number] [facility] rocket staff 12-09-2023 Emergency department Note This nurse received report from Margaret Coleman RN 12/09/23 0728 [facility] rocket staff 12-09-2023 Emergency department Note This nurse received report from Margaret Coleman RN 12/09/23 0728 ED RT Marques called for VBG. Marques states he will be down Dalila Mendes RN 12/09/23 0559 Pt presents to ED c/o nausea and vomiting and headache. EMS states several residents have COVID at facility. Pt states she vomiting 3x today. documented in this encounter [facility] 12-09-2023 Hospital Discharg e instructions Caridad [...] sent through Care Everywhere.Dehydration Discharge Instructions, Adult (Russian)Nausea and Vomiting, Adult ED (Russian)documented in this encounter [facility] 12-09-2023 Note Sinus rhythm Abnormal R-wave progression, late transition Left ventricular hypertrophy No significant change compared to 08/17/2023 Electronically Signed On 12-09-2023 06:18:33 EST by Caridad FIGUEROA 12-09-2023 Note Sinus rhythm Abnormal R-wave progression, late transition Left ventricular hypertrophy No significant change compared to 08/17/2023 Electronically Signed On 12-09-2023 06:18:33 EST by Caridad LAZARO EPIPHDEEPTI 12-09-2023 Emergency department Note ED RT Marques called for VBG. Marques states he will be down Dalila Mendes RN 12/09/23 0559 [facility] 12-09-2023 Emergency department Triage note Pt presents to ED c/o nausea and vomiting and headache. EMS states several residents have COVID at facility. Pt states she vomiting 3x today. [facility] 12-06-2023 Telephone encounter Note Images from the original note were not included. Patient's BGL [facility] 12-06-2023 Miscellaneous Notes Images from the original note were not included. Patient's BGL documented in this encounter [facility] 11-25-2023 Note Addended by: GERONIMO LEE on: 11/25/2023 12:06 PM Modules accepted: Orders [facility] 11-25-2023 Note Addended by: GERONIMO LEE on: 11/25/2023 12:06 PM Modules accepted: Orders [facility] 11-25-2023 Miscellaneous Notes Addended by: GERONIMO LEE on: 11/25/2023 12:06 PM Modules accepted: Orders Addended by: RADHA BUSBY on: 11/25/2023 11:59 AM Modules accepted: Orders Called nursing facility and spoke with nurse Ninfa. I relayed the message and she verbalized understanding. Updated RX is pending. Thank you! Please increase doses to 200 units with each meal thank you Called [facility] and spoke with nurse ochoa. She verified that patient is taking humulin R U500(250 units with breakfast/175 units with lunch and dinner Please check on insulin doses; will need to increase thank you Images from the original note were not included. Patient's BGL documented in this encounter [employer] rocket staff 11-25-2023 Note Addended by: RADHA BUSBY on: 11/25/2023 11:59 AM Modules accepted: Orders [employer] 11-25-2023 Note Addended by: RADHA BUSBY on: 11/25/2023 11:59 AM Modules accepted: Orders [employer] 11-25-2023 Telephone encounter Note Called nursing facility and spoke with nurse Ocasio. I relayed the message and she verbalized understanding. Updated RX is pending. Thank you! [employer] [facility] 11-24-2023 Telephone encounter Note Please increase doses to 200 units with each meal thank you [employer] Work Phone: 11-24-2023 Miscellaneous Notes Please increase doses to 200 units with each meal thank you Called [facility] and spoke with nurse ochoa. She verified that patient is taking humulin R U500(250 units with breakfast/175 units with lunch and dinner Please check on insulin doses; will need to increase thank you Images from the original note were not included. Patient's BGL documented in this encounter [facility] 11-24-2023 Telephone encounter Note Called [facility] and spoke with nurse ochoa. She verified that patient is taking humulin R U500(250 units with breakfast/175 units with lunch and dinner [facility] 11-23-2023 Telephone encounter Note Please check on insulin doses; will need to increase thank you [facility] 11-23-2023 Telephone encounter Note Images from the original note were not included. Patient's BGL [facility] 11-17-2023 Note HNO ID: [id number] Author: ELDA REAVES PA-C Service: ? Author Type: Physician Lvn Type: Progress Notes Filed: 11/17/2023 10:00 Note Text: CHIEF COMPLAINT: Patient presents with: Nausea AND Vomiting HPI: Resident at [facility], SNF and rehab. Will M Vicentacareysamara is a 58 year old adult with [...] Never Substance Us (more content not included)... [facility] 11-09-2023 Telephone encounter Note BGL under media for review. [facility] 11-09-2023 Miscellaneous Notes BGL under media for review. Nabil is faxing over patient's bgl right now. Name of caller: Nabil Contact phone number: [phone] Relationship to Patient: [facility] [place] Provider: Dr Lee Practice: Endocrinology Chief Complaint/Reason [...] their call: Yes documented in this encounter [facility] 11-09-2023 Telephone encounter Note Nabil is faxing over patient's bgl right now. [facility] 01-02-2024 Telephone encounter Note Name of caller: Nabil Contact phone number: [phone] Relationship to Patient: [facility] [place] Provider: Dr Lee Practice: Endocrinology Chief Complaint/Reason [...] business hours to return their call: Yes [facility] 10-27-2023 History of Presen t illness Narrative . ENDOCRINOLOGY [address] [place] [id number] Dept: [phone] Dept Visit type: Established patient Patient was identified and seen today via Telehealth by agreement and consent. I used the following Telehealth technology: Audio capability only. Total length of call 35 minutes. The patient was offered and advised video for a more comprehensive evaluation, but the patient declined or was unable to use video. Patient location: Patient Location: [facility] for Individuals [...] stated that they are currently in the [facility]. If the patient is a minor, permission [...] the skin daily (before lunch). Lactobacillus Acid-Pectin (Acidophilus/Baldwin Pectin) tablet Take 1 tablet by mouth [...] soft tissue disorders Other symbolic dysfunctions Schizophrenia ([facility]) Sleep apnea no CPAP Venous [...] ENDOSCOPY N/A 06/29/2023 Dr Sergio Sibley at [facility]; no specimens WISDOM TOOTH EXTRACTION Family History [...] Geronimo Lee MD documented in this encounter [facility] 10-16-2023 History of Presen t illness Narrative [facility] called and notified this nurse that they won't be able to pick patient up until 0200 d/t bariatric patient and requires 2 crews. Spoke with staff and [facility] [place] and per staff will still be able to accept patient at that time. [facility] aware ok to transport patient at 0200 to [facility]. Patient updated on delay in transportation. Department of Internal Medicine Division of Endocrinology, Diabetes, & Metabolism Endocrinology Note Patient Name: Will Jacinto : 1965 AGE: 57 y.o. Room/Bed: [facility]/[address] Admission Date: 10/07/2023 Visit Date: 10/16/2023 Reason for Endocrine Consult: U-500 dosing, hypoglycemia Provider/Team Requesting Consult: [facility] PCP: Jared Guzman Outpt Ct[facility] Operator: Dr. Lee ASSESSMENT: Type 2 diabetes, uncontrolled, [...] and he presented to the hospital from senior care for hypoglycemia/unresponsiveness due to poor PO intake. Type of DM: 2 Onset of DM: 1991 Home DM Medication Regimen: U-500 insulin - 285 units before breakfast/260 units before lunch/285 units before dinner , Trulicity 4.5 mg weekly DM control (last A1c/glucose data): 7.7% on current admission Resides at the [facility] Interim history: Patient was seen at bedside Good PO intake Has intermittent nausea; no vomiting or AP Drinks juice occasionally ID following - on IV Abx; has PICC No SOB or CP Plan for DC to [facility] [place] Glucose Date/Time Value Ref Range Status 10/16/2023 11:40 [...] Units, SubCUTAneous, Daily before lunch Lactobacillus Acid-Pectin (Acidophilus/Baldwin Pectin) tablet 1 tablet, Oral, 2 times [...] found for: CHOLHDLRATIO No results found for: [id number] Lab Results Component Value Date TSH 2.356 [...] side (HCC) Anxiety disorder Bipolar 1 disorder ([facility]) Blood circulation, collateral Cellulitis chronic L lower leg COVID 12/08/2021 Depression Diabetes mellitus ([facility]) Type II, on insulin Disease of blood and blood forming organ Endometrial carcinoma (HCC) 11/25/2020 Endometrial hyperplasia Foot ulcer ([facility]) Hx of blood clots RLE prior to amputation Hyperlipidemia Hypertension Lymphedema 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, RLE Morbidly obese ([facility]) Muscle weakness Osteomyelitis (HCC) Osteomyelitis (HCC) 2019 RLE Other lack of coordination Other specified soft tissue disorders Other symbolic dysfunctions Schizophrenia ([facility]) Sleep apnea no CPAP Venous insufficiency Past Surgical History: Past Surgical History: Procedure Laterality Date ABCESS DRAINAGE Right 09/09/2018 FOOT; [facility]CH COLONOSCOPY 09/19/[address] Hyde DILATION AND CURETTAGE OF UTERUS 05/18/2019 HYSTEROSCOPY 12/23/2021 LEG AMPUTATION THROUGH KNEE Right 06/16/2019 UPPER GASTROINTESTINAL ENDOSCOPY N/A 06/29/2023 Dr Sergio Sibley at [facility]; no specimens WISDOM TOOTH EXTRACTION Allergy(ies): No [...] were not included. Hospitalist Progress Note 10/16/[phone]: Please page [facility] night Hospitalist for any issues. [...] bipolar type, transgender (F2M). Initially presented from [facility] with hypoglycemia and unresponsiveness, POC glucose 36. 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, RLE Morbidly obese (HCC) Muscle weakness Osteomyelitis (HCC) Osteomyelitis ([facility]) 2019 RLE Other lack of coordination Other specified soft tissue disorders Other symbolic dysfunctions Schizophrenia ([facility]) Sleep apnea no CPAP Venous [...] found for: "DDIMER", "PROCAL", "COVID19", "HGBA1C", "TSH", "[id number]", "FOLATE", "VITD25", "CHOL", "TRIG", "HDL", LDLCALC Urine [...] Robertson APRN - KRANTHI, 650 mg at 10/13/23 0117 aluminum & magnesium hydroxide-simethicone (Mylanta) 200-200-20 MG/5ML oral suspension 20 mL, 20 mL, Oral, q6h PRN, Marcio Armando MD ARIPiprazole (Abilify) tablet 10 mg, 10 mg, Oral, q24h, Rachael Robertson APRN - KRANTHI, 10 mg at 10/15/23 162 aspirin EC tablet 81 mg, 81 mg, Oral, Daily, Rachael Robertson APRN - KRANTHI, 81 mg at 10/15/23943 atorvastatin (Lipitor) tablet 10 mg, 10 mg, Oral, Nightly, JEREMY Liao CNP, 10 mg at 10/15/232046 clotrimazole (Lotrimin) 1 % cream, , Topical, BID, Rachael Robertson APRN - KRANTHI, Given at 10/15/232050 dextrose 5 % infusion, 100 mL/hr, IntraVENous, PRN, JEREMY Liao CNP, Stopped at 10/10/23 0552 dextrose 50 % solution 12.5 g, 12.5 g, IntraVENous, PRN, Rachael Robertson APRN - KRANTHI dilTIAZem CD (Cardizem CD) 24 hr capsule 180 mg, 180 mg, Oral, Daily, Rachael Robertson APRN - KRANTHI, 180 mg at 12/08/23 0944 enoxaparin (Lovenox) syringe 30 mg, 30 mg, SubCUTAneous, 2 times per day, JEREMY Liao CNP, 30 mg at 10/15/232044 ertapenem (INVanz) 1,000 mg in sodium chloride 0.9 % 50 mL IVPB Mini-Bag Plus, 1,000 mg, IntraVENous, q24h, Mukul Coreas, , Stopped at 10/15/23 1542 FLUoxetine (PROzac) capsule 40 mg, 40 mg, Oral, Daily, JEREMY Liao CNP, 40 mg at 10/15/23943 gabapentin (Neurontin) capsule [...] Анна Villela MD, 90 Units at 10/15/23 1621 insulin NPH (Isophane) (HumuLIN N,NovoLIN N) injection [...] Robertson APRN - KRANTHI, 20 mg at 10/15/232045 melatonin tablet 10 mg, 10 mg, Oral, Nightly, Rachael Robertson APRN - TELEPHOTO ENGINEER, 10 mg at 10/15/232044 metoprolol tartrate (Lopressor) [...] Oral, qAM AC, Rachael Robertson APRN - TELEPHOTO ENGINEER, 40 mg at 10/16/23 0619 polyethylene glycol (PEG) 3350 (Miralax) packet 17 g, 17 g, Oral, Daily PRN, Rachael Robertson APRN - KRANTHI polyethylene glycol (PEG) 3350 (Miralax) packet 17 g, 17 g, Oral, Daily, Rachael Robertson APRN - TELEPHOTO ENGINEER, 17 g at 10/15/23 0943 prochlorperazine (Compazine) [...] or tomorrow - [facility] Pending the following - monitor glucose levels through dinner, bed hold no auth req'd and OPAT already sent to facility Marcio Armando MD Division of Hospitalist Medicine Inpatient Medical Services/[facility] Data: Moderate (3x CAT1 -OR- 1x CAT2 -OR- 1x CAT3) Complexity: Acute illness or injury posing a threat to life or body function (HIGH). Risk: Prescription drug/IVF/colloid was initiated, discontinued, adjusted; or reviewed with decision to maintain current orders (MOD). Estimated MDM: Medium (10745/77958) or higher Note: the above MDM determinations [...] Jacinto : 1965 AGE: 57 y.o. Room/Bed: [facility]/[address] Admission Date: 10/07/2023 Visit Date: 10/15/2023 Reason for Endocrine Consult: U-500 dosing, hypoglycemia Provider/Team Requesting Consult: [facility] PCP: Jared Guzman Outpt Ctc Operator: Dr. Lee ASSESSMENT: Type 2 diabetes, uncontrolled, [...] BF for BG 498) -- discussed with INDUCTION COORDINATION POWER ENGINEER/RN Continue Humalog high dose scale with meals [...] and he presented to the hospital from senior care for hypoglycemia/unresponsiveness due to poor PO intake. Type of DM: 2 Onset of DM: 1991 Home DM Medication Regimen: U-500 insulin - 285 units before breakfast/260 units before lunch/285 units before dinner , Trulicity 4.5 mg weekly DM control (last A1c/glucose data): 7.7% on current admission Resides at the [facility] Interim history: Patient was seen at bedside [...] SOB or CP Plan for DC to [facility] [place] Glucose Date/Time Value Ref Range Status 10/15/2023 09:29 [...] before lunch/285 units before dinner Lactobacillus Acid-Pectin (Acidophilus/Baldwin Pectin) tablet 1 tablet, Oral, 2 times [...] found for: CHOLHDLRATIO No results found for: [id number] Lab Results Component Value Date TSH 2.356 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, RLE Morbidly obese ([facility]) Muscle weakness Osteomyelitis ([facility]) Osteomyelitis ([facility]) 2019 RLE Other lack of coordination Other specified soft tissue disorders Other symbolic dysfunctions Schizophrenia ([facility]) Sleep apnea no CPAP Venous insufficiency Past Surgical History: Past Surgical History: Procedure Laterality Date ABCESS DRAINAGE Right 09/09/2018 FOOT; ACH COLONOSCOPY 09/19/[address] Hyde DILATION AND CURETTAGE OF UTERUS 05/18/2019 HYSTEROSCOPY 12/23/2021 LEG AMPUTATION THROUGH KNEE Right 06/16/2019 UPPER GASTROINTESTINAL ENDOSCOPY N/A 06/29/2023 Dr Sergio Sibley at [facility]; no specimens WISDOM TOOTH EXTRACTION Allergy(ies): No [...] were not included. Hospitalist Progress Note 10/15/[phone]: Please page [facility] Hospitalist for any issues. 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 Initially presented from [facility] with hypoglycemia and unresponsiveness, POC glucose 36. [...] side (HCC) Anxiety disorder Bipolar 1 disorder ([facility]) Blood circulation, collateral Cellulitis chronic L lower leg COVID 12/08/2021 Depression Diabetes mellitus ([facility]) Type II, on insulin Disease of blood and blood forming organ Endometrial carcinoma ([facility]) 11/25/2020 Endometrial hyperplasia Foot ulcer [...] part of today's encounter. HEME: Recent Labs 10/13/23117 WBC 9.1 RBC 3.73 HGB 10.5* HCT 31.7 MCV 84.9 RDW 14.7* PLT 324 CHEM: Recent Labs 10/13/2311710/14/23 0315 NA 129* 134* K 3.8 3.9 [...] found for: "DDIMER", "PROCAL", "COVID19", "HGBA1C", "TSH", "[id number]", "FOLATE", "VITD25", "CHOL", "TRIG", "HDL", LDLCALC Urine [...] Robertson APRN - KRANTHI, 10 mg at 10/14/232005 clotrimazole (Lotrimin) 1 [...] IntraVENous, q24h, Mukul Coreas DO, Stopped at 10/14/23 1617 FLUoxetine (PROzac) capsule 40 mg, 40 mg, Oral, Daily, Rachael Robertson APRN - KRANTHI, 40 mg at 10/14/23 0920 gabapentin (Neurontin) capsule 100 mg, 100 mg, Oral, BID, JEREMY Liao CNP, 100 mg at 10/14/232006 glucagon (human recombinant) [...] BID, JEREMY Liao CNP, 20 mg at 10/14/232006 melatonin tablet 10 [...] Oral, qAM AC, Rachael Robertson APRN - TELEPHOTO ENGINEER, 40 mg at 10/15/23 0619 polyethylene glycol (PEG) 3350 (Miralax) packet 17 g, 17 g, Oral, Daily PRN, Rachael Robertson APRN - TELEPHOTO ENGINEER polyethylene glycol (PEG) 3350 (Miralax) packet 17 [...] appreciate recs - secure chat with Dr. Tika, given hyperglycemia today she would like another [...] - 10/16 - [facility] - Pending the following - final endo recs, bed hold no auth req'd and OPAT already sent to facility Marcio Armando MD Division of Hospitalist Medicine Inpatient Medical Services/[facility] Data: Moderate (3x CAT1 -OR- 1x CAT2 -OR- 1x CAT3) Complexity: Acute illness or injury posing a threat to life or body function (HIGH). Risk: Prescription drug/IVF/colloid was initiated, discontinued, adjusted; or reviewed with decision to maintain current orders (MOD). Estimated MDM: Medium (08928/18424) or higher Note: the above MDM determinations are made by me for my own use to estimate my end-of-day billing codes. However, documentation is reviewed by professional coders; following their review of documentation, and in accordance with current AMA CPT, CMS, and ACDIS guidelines, the actual billing code(s) may differ from my estimate. Images from the original note were not included. [facility] - Infectious Diseases Attending [...] AST 16 02/09/2023 1022 ALT 28 10/11/2023 035 ALT 29 02/09/2023 1022 PROCAL 0.83 (H) [...] be of low complexity. Mukul Coreas DO [facility] Infectious Diseases Office Tel. [phone] Nutrition Assessment Type and Reason for Visit: [...] eating 1 meal yesterday, today had 2 congolese yogurt parfairts and had just eaten small personal kelley pizza, ordered a grilled chicken sandwich as well, not drinking ONS frequently, PO intakes SECTION HAND poor for 4 days) Weight Loss: Unable to assess (no new/acute weight to assess) Body Fat Loss: No significant body fat loss Muscle Mass Loss: No significant muscle mass loss Fluid Accumulation: Mild Extremities, Generalized Signal Maintenance Technician Strength: Not Performed Nutrition Assessment: Pt with previously noted PMH including DM w/ gastroparesis (documented as 'brittle') & polyneuropathy, HTN, HLD, s/p R AKWarren presented initially from nursing facility due to hypoglycemia and unresponsiveness; pt was noted to have poor PO intake for at least 4 days SECTION HAND in addition to N/V, when pt was [...] limited documentation in chart to review, per primary school teacher appears pt had 2 small yogurts this [...] is likely r/t uncontrolled DM; at facility ([facility]) pt enjoys/tolerates some meals, others do 'not [...] 152 kg (335 lb) (03/08/23 Deedee scale) [place] Body Weight (lbs) (Calculated): 130 lbs [place] Body Weight (Kg) (Calculated): 59 kg Weight Adjustment For: Amputation % Weight Adjustment: 10.1 - AKA Total Adjusted Percentage (Calculated): 10.1 Adjusted [place] Body Weight (lbs) (Calculated): 116.9 lbs Adjusted [place] Body Weight (kg) (Calculated): 53.14 kg BMI [...] Ana Reyes RD Contact: Secure chat or *[phone] Department of Internal Medicine Division of Endocrinology, Diabetes, & Metabolism Endocrinology Note Patient Name: Will Jacinto : 1965 AGE: 57 y.o. Room/Bed: [facility] A Admission Date: 10/07/2023 Visit Date: 10/14/2023 Reason for Endocrine Consult: U-500 dosing, hypoglycemia Provider/Team Requesting Consult: YUNIER PCP: Jared Guzman Outpt Ctc Operator: Dr. Lee ASSESSMENT: Type 2 diabetes with [...] and he presented to the hospital from senior care for hypoglycemia/unresponsiveness due to poor PO intake. Type of DM: 2 Onset of DM: 1991 Home DM Medication Regimen: U-500 insulin - 285 units before breakfast/260 units before lunch/285 units before dinner , Trulicity 4.5 mg weekly DM control (last A1c/glucose data): 7.7% on current admission Resides at the [facility] Interim history: Patient was seen at bedside Poor PO intake yesterday due to nausea No vomiting or AP Nausea better today Ate BF -- 2 yogurts Not drinking Ensure, mostly diet Coke Pt was off his Pure wick - urinated on the bed pad ID following - on IV Abx Plan for DC to [facility] Glucose Date/Time Value Ref Range Status 10/14/2023 [...] before lunch/285 units before dinner Lactobacillus Acid-Pectin (Acidophilus/Baldwin Pectin) tablet 1 tablet, Oral, 2 times [...] found for: CHOLHDLRATIO No results found for: [id number] Lab Results Component Value Date TSH 2.356 [...] side (HCC) Anxiety disorder Bipolar 1 disorder ([facility]) Blood circulation, collateral Cellulitis chronic L lower leg COVID 12/08/2021 Depression Diabetes mellitus ([facility]) Type II, on insulin Disease of blood and blood forming organ Endometrial carcinoma (HCC) 11/25/2020 Endometrial hyperplasia Foot ulcer ([facility]) Hx of blood clots RLE prior to amputation Hyperlipidemia Hypertension Lymphedema 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, RLE Morbidly obese ([facility]) Muscle weakness Osteomyelitis (HCC) Osteomyelitis (HCC) 2019 RLE Other lack of coordination Other specified soft tissue disorders Other symbolic dysfunctions Schizophrenia ([facility]) Sleep apnea no CPAP Venous insufficiency Past Surgical History: Past Surgical History: Procedure Laterality Date ABCESS DRAINAGE Right 09/09/2018 FOOT; ACH COLONOSCOPY 09/19/[address] Hyde DILATION AND CURETTAGE OF UTERUS 05/18/2019 HYSTEROSCOPY 12/23/2021 LEG AMPUTATION THROUGH KNEE Right 06/16/2019 UPPER GASTROINTESTINAL ENDOSCOPY N/A 06/29/2023 Dr Sergio Sibley at [facility]; no specimens WISDOM TOOTH EXTRACTION Allergy(ies): No [...] were not included. Hospitalist Progress Note 10/14/[phone]: Please page IMS night Hospitalist for any [...] bipolar type, transgender (F2M). Initially presented from [facility] with hypoglycemia and unresponsiveness, POC glucose 36. [...] found for: "DDIMER", "PROCAL", "COVID19", "HGBA1C", "TSH", "[id number]", "FOLATE", "VITD25", "CHOL", "TRIG", "HDL", LDLCALC Urine [...] Robertson APRN - KRANTHI, 650 mg at 10/13/23 0117 ARIPiprazole (Abilify) tablet 10 mg, 10 mg, Oral, q24h, Rachael Robertson APRN - KRANTHI, 10 mg at 10/13/23 1745 aspirin EC tablet 81 mg, 81 mg, Oral, Daily, Rachael Robertson APRN - KRANTHI, 81 mg at 10/13/23 0809 atorvastatin (Lipitor) tablet 10 mg, 10 mg, Oral, Nightly, Rachael Robertson APRN - TELEPHOTO ENGINEER, 10 mg at 10/13/23 214 clotrimazole (Lotrimin) [...] Robertson APRN - KRANTHI, 180 mg at 10/13/23 0809 enoxaparin (Lovenox) syringe 30 mg, 30 mg, SubCUTAneous, 2 times per day, Rachael Robertson APRN - KRANTHI, 30 mg at 10/13/23 214 ertapenem (INVanz) 1,000 mg in sodium chloride 0.9 % 50 mL IVPB Mini-Bag Plus, 1,000 mg, IntraVENous, q24h, Mukul Coreas DO, Stopped at 10/13/23 1508 FLUoxetine (PROzac) capsule 40 mg, 40 mg, Oral, Daily, Rachael Robertson APRN - TELEPHOTO ENGINEER, 40 mg at 10/13/23 0809 gabapentin (Neurontin) capsule 100 mg, 100 mg, Oral, BID, Rachael Robertson APRN - TELEPHOTO ENGINEER, 100 mg at 10/13/23 214 glucagon (human recombinant) injection 1 mg, 1 [...] BID, JEREMY Liao CNP, 25 mg at 10/13/232141 ondansetron (Zofran) tablet 4 mg, 4 mg, Oral, q6h PRN, JEREMY Liao CNP, 4 mg at 10/14/23 0611 pantoprazole (ProtoNix) EC tablet 40 mg, 40 mg, Oral, qAM AC, Rachael Robertson, DIRECTOR OF COMMUNITY SERVICES - TELEPHOTO ENGINEER, 40 mg at 10/14/23 0611 polyethylene glycol (PEG) 3350 (Miralax) packet 17 g, 17 g, Oral, Daily PRN, Rachael Robertson DIRECTOR OF COMMUNITY SERVICES - TELEPHOTO ENGINEER polyethylene glycol (PEG) 3350 (Miralax) packet 17 g, 17 g, Oral, Daily, Rachael Robertson APRN - TELEPHOTO ENGINEER, 17 g at 10/13/23 0809 prochlorperazine (Compazine) [...] - 10/15 - Location - Skilled Facility, [facility] - Pending the following - bed hold no auth req'd Marcio Armando MD [facility] Medical Services/[facility] Data: Moderate (3x CAT1 -OR- 1x CAT2 -OR- 1x CAT3) Complexity: Acute illness or injury posing a threat to life or body function (HIGH). Risk: Prescription drug/IVF/colloid was initiated, discontinued, adjusted; or reviewed with decision to maintain current orders (MOD). Estimated MDM: Medium (26095/24952) or higher Note: the above MDM determinations [...] SpO2 on RA, 75 HR, BG 232. CONTROL SYSTEM MANAGER called. 2118 vitals: 152/75, HR 75, OoD315% on RA Department of Internal Medicine Division of Endocrinology, Diabetes, & Metabolism Endocrinology Note Patient Name: Will Jacinto : 1965 AGE: 57 y.o. Room/Bed: [facility] A Admission Date: 10/07/2023 Visit Date: 10/13/2023 Reason for Endocrine Consult: U-500 dosing, hypoglycemia Provider/Team Requesting Consult: IMS PCP: Jared Guzman Outpt Ctc Operator: Dr. Lee ASSESSMENT: Type 2 diabetes with [...] and he presented to the hospital from senior care for hypoglycemia/unresponsiveness due to poor PO intake. Type of DM: 2 Onset of DM: 1991 Home DM Medication Regimen: U-500 insulin - 285 units before breakfast/260 units before lunch/285 units before dinner , Trulicity 4.5 mg weekly DM control (last A1c/glucose data): 7.7% on current admission Resides at the [facility] Interim history: Patient was seen at bedside [...] before lunch/285 units before dinner Lactobacillus Acid-Pectin (Acidophilus/Baldwin Pectin) tablet 1 tablet, Oral, 2 times [...] found for: CHOLHDLRATIO No results found for: [id number] Lab Results Component Value Date TSH 2.356 [...] 10/07/2023 [facility] 1965 [id number] Exam Date/Time: 10/07/2023 07:31 Procedure: XR CHEST [...] 10/07/2023 Patient Name: [facility] 1965 [id number] Exam Date/Time: 10/07/2023 07:29 Procedure: CT HEAD [...] ENDOSCOPY N/A 06/29/2023 Dr Sergio Sibley at [facility]; no specimens WISDOM TOOTH EXTRACTION Allergy(ies): No [...] were not included. Hospitalist Progress Note 10/13/2023 [phone]: Please page [facility] night Hospitalist for any issues. [...] bipolar type, transgender (F2M). Initially presented from [facility] with hypoglycemia and unresponsiveness, POC glucose 36. [...] organisms) resistance hx CRE and MRSA in 2017, RLE Morbidly obese (HCC) Muscle weakness Osteomyelitis [...] of today's encounter. HEME: Recent Labs 10/11/23 03510/12/23 04010/13/23 0118 WBC 9.4 7.4 9.1 RBC 3.82 [...] found for: "DDIMER", "PROCAL", "COVID19", "HGBA1C", "TSH", "[id number]", "FOLATE", "VITD25", "CHOL", "TRIG", "HDL", LDLCALC Urine [...] mg, 650 mg, Oral, q4h PRN, Rachael Rboertson APRN - KRANTHI, 650 mg at 10/13/23 0117 ARIPiprazole (Abilify) tablet 10 mg, 10 mg, Oral, q24h, Rachael Robertson APRN - TELEPHOTO ENGINEER, 10 mg at 10/12/23 1726 aspirin EC tablet 81 mg, 81 mg, Oral, Daily, Rachael Robertson APRN - KRANTHI, 81 mg at 10/13/23 0809 atorvastatin (Lipitor) tablet 10 mg, 10 mg, Oral, Nightly, Rachael Robertson APRN - KRANTHI, 10 mg at 10/12/232007 clotrimazole (Lotrimin) 1 % cream, , Topical, BID, Rachael Robertson APRN - KRANTHI, Given at 10/13/23 0810 dextrose 5 % infusion, 100 mL/hr, IntraVENous, PRN, JEREMY Liao CNP, Stopped at 10/10/23 0552 dextrose 50 % solution 12.5 g, 12.5 g, IntraVENous, PRN, Rachael Robertson APRN - KRANTHI dilTIAZem CD (Cardizem CD) 24 hr capsule 180 mg, 180 mg, Oral, Daily, Rachael Robertson APRN - KRANTHI, 180 mg at 10/13/23 0809 enoxaparin (Lovenox) syringe 30 mg, 30 mg, SubCUTAneous, 2 times per day, JEREMY Liao CNP, 30 mg at 10/13/23 0809 ertapenem (INVanz) 1,000 mg in sodium chloride 0.9 % 50 mL IVPB Mini-Bag Plus, 1,000 mg, IntraVENous, q24h, Mukul Coreas DO, Stopped at 10/12/23 1631 FLUoxetine (PROzac) capsule 40 mg, 40 mg, Oral, Daily, Rachael Robertson APRN - TELEPHOTO ENGINEER, 40 mg at 10/13/23 0809 gabapentin (Neurontin) capsule 100 mg, 100 mg, Oral, BID, Rachael Robertson APRN - KRANTHI, 100 mg at 10/13/23 0809 glucagon (human [...] JEREMY Liao CNP, 20 mg at 10/13/23 0810 melatonin tablet 10 mg, 10 mg, Oral, [...] Oral, qAM AC, Rachael Robertson APRN - KRANTHI, 40 mg at 10/13/23 0623 polyethylene glycol (PEG) 3350 (Miralax) packet 17 g, 17 g, Oral, Daily PRN, JEREMY Liao CNP polyethylene glycol (PEG) 3350 (Miralax) packet 17 g, 17 g, Oral, Daily, Rachael Robertson APRN - KRANTHI, 17 g at 10/13/23 0809 prochlorperazine (Compazine) [...] insulin regimen Marcio Armando MD Division of Hospitalist Medicine Inpatient Medical Services/[facility] Data: Moderate (3x CAT1 -OR- 1x CAT2 [...] of recurrent hypoglycemia (HIGH). Estimated MDM: High (47204/83001) Note: the above MDM determinations are made [...] Jacinto : 1965 AGE: 57 y.o. Room/Bed: [facility] A Admission Date: 10/07/2023 Visit Date: 10/12/2023 Reason for Endocrine Consult: U-500 dosing, hypoglycemia Provider/Team Requesting Consult: IMS PCP: Jared Guzman Outpt Ctc Operator: Dr. Lee ASSESSMENT: Type 2 diabetes with [...] and he presented to the hospital from senior care for hypoglycemia/unresponsiveness due to poor PO intake. Type of DM: 2 Onset of DM: 1991 Home DM Medication Regimen: U-500 insulin - 285 units before breakfast/260 units before lunch/285 units before dinner , Trulicity 4.5 mg weekly DM control (last A1c/glucose data): 7.7% on current admission Resides at the [facility] Interim history: Patient was seen at bedside [...] before lunch/285 units before dinner Lactobacillus Acid-Pectin (Acidophilus/Baldwin Pectin) tablet 1 tablet, Oral, 2 times [...] found for: CHOLHDLRATIO No results found for: [id number] Lab Results Component Value Date TSH 2.356 [...] 10/07/2023 Patient Name: WILL [facility]AC[facility]TO [facility] 1965 [id number] Exam Date/Time: 10/07/2023 07:31 Procedure: XR CHEST [...] 10/07/2023 Patient Name: WILL JACINTO : [address] [facility]#: [id number] Exam Date/Time: 10/07/2023 07:29 Procedure: CT HEAD [...] soft tissue disorders Other symbolic dysfunctions Schizophrenia ([facility]) Sleep apnea no CPAP Venous insufficiency Past Surgical History: Past Surgical History: Procedure Laterality Date ABCESS DRAINAGE Right 09/09/2018 FOOT; ACH COLONOSCOPY 09/19/[address] Hyde DILATION AND CURETTAGE OF UTERUS 05/18/2019 HYSTEROSCOPY 12/23/2021 LEG AMPUTATION THROUGH KNEE Right 06/16/2019 UPPER GASTROINTESTINAL ENDOSCOPY N/A 06/29/2023 Dr Sergio Sibley at [facility]; no specimens WISDOM TOOTH EXTRACTION Allergy(ies): No [...] from the original note were not included. [facility] - Infectious Diseases Attending [...] via PICC. Plan is to return to [facility] when medically stable. Objective- Vitals- Patient Vitals [...] be of moderate complexity. Mukul Coreas DO [facility] Infectious Diseases Office Tel. [phone] Images from the original note were not included. Hospitalist Progress Note 10/12/2023 [phone]: Please page [facility] night Hospitalist for any issues. [...] bipolar type, transgender (F2M). Initially presented from [facility] with hypoglycemia and unresponsiveness, POC glucose 36. [...] side (HCC) Anxiety disorder Bipolar 1 disorder ([facility]) Blood circulation, collateral Cellulitis chronic L lower leg COVID 12/08/2021 Depression Diabetes mellitus ([facility]) Type II, on insulin Disease of blood and blood forming organ Endometrial carcinoma ([facility]) 11/25/2020 Endometrial hyperplasia Foot ulcer ([facility]) Hx of blood clots RLE prior to amputation Hyperlipidemia Hypertension Lymphedema 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, RLE Morbidly obese ([facility]) Muscle weakness Osteomyelitis ([facility]) Osteomyelitis ([facility]) 2019 RLE Other lack of coordination Other specified soft tissue disorders Other symbolic dysfunctions Schizophrenia ([facility]) Sleep apnea no CPAP Venous [...] found for: "DDIMER", "PROCAL", "COVID19", "HGBA1C", "TSH", "[id number]", "FOLATE", "VITD25", "CHOL", "TRIG", "HDL", LDLCALC Urine [...] sodium chloride 0.9 % 100 mL IVPB (Add-[place]), 3,000 mg, IntraVENous, q6h, Skylar Larkin PA-C, [...] BID, JEREMY Liao CNP, Given at 10/11/23 2121 dextrose 5 % infusion, 100 mL/hr, IntraVENous, PRN, JEREMY Liao CNP, Stopped at 10/10/23 0552 dextrose 50 % solution 12.5 g, 12.5 g, IntraVENous, PRN, JEREMY Liao CNP dilTIAZem CD (Cardizem CD) 24 hr capsule 180 mg, 180 mg, Oral, Daily, Rachael Robertson APRN - KRANTHI, 180 mg at 10/11/23 0941 enoxaparin (Lovenox) syringe 30 mg, 30 mg, SubCUTAneous, 2 times per day, JEREMY Liao CNP, 30 mg at 10/11/23 2019 FLUoxetine (PROzac) capsule 40 mg, 40 mg, Oral, Daily, JEREMY Liao CNP, 40 mg at 10/11/23 0941 gabapentin (Neurontin) capsule 100 mg, 100 mg, Oral, BID, JEREMY Liao CNP, 100 mg at 10/11/23 2019 glucagon (human recombinant) injection 1 mg, 1 mg, IntraMUSCular, PRN, JEREMY Liao CNP glucose oral gel 15 g, 15 g, Oral, PRN, JEREMY iLao CNP, 15 g at 10/10/23 0216 Insulin Lispro (Humalog) injection 0-18 Units, 0-18 Units, SubCUTAneous, TID , Amrita Garcia MD Insulin Lispro (Humalog) injection 25 Units, 25 Units, SubCUTAneous, TID , Amrita Garcia MD, 25 Units at 10/11/23 1740 insulin NPH (Isophane) (HumuLIN N,NovoLIN N) injection 40 Units, 40 Units, SubCUTAneous, BID, Amrita Garcia MD, 40 Units at 10/11/23 2125 labetalol (Normodyne,Trandate) injection 20 mg, 20 mg, IntraVENous, q6h PRN, Ricardo Spring MD, 20 mg at 10/12/23 0555 [Held by provider] lisinopril tablet 40 mg, 40 mg, Oral, Daily, Mayda Olmstead MD, 40 mg at 10/11/23 0942 megestrol (Megace) tablet 20 mg, 20 mg, Oral, BID, JEREMY Liao CNP, 20 mg at 10/11/23 2331 melatonin tablet 10 mg, 10 mg, Oral, Nightly, JEREMY Liao CNP, 10 mg at 10/11/23 2019 metoprolol tartrate (Lopressor) tablet 25 mg, 25 mg, Oral, BID, JEREMY Liao CNP, 25 mg at 10/11/232018 ondansetron (Zofran) tablet 4 mg, 4 mg, Oral, q6h PRN, JEREMY Liao CNP, 4 mg at 10/11/23 204 pantoprazole (ProtoNix) EC tablet 40 mg, 40 mg, Oral, qAM AC, Rachael Robertson APRN - TELEPHOTO ENGINEER, 40 mg at 10/12/23 0550 polyethylene glycol (PEG) 3350 (Miralax) packet 17 g, 17 g, Oral, Daily PRN, Rachael Robertson APRN - TELEPHOTO ENGINEER polyethylene glycol (PEG) 3350 (Miralax) packet 17 g, 17 g, Oral, Daily, Rachael Robertson APRN - KRANTHI, 17 g at 10/08/23 1042 prochlorperazine (Compazine) [...] endocrine recs Marcio Armando MD Division of [facility] Inpatient Medical Services/[facility] Data: Extensive (Two out of three: 3x CAT1, 1x CAT2, 1x CAT3) Complexity: Acute illness or injury posing a threat to life or body function (HIGH). Risk: Prescription drug/IVF/colloid was initiated, discontinued, adjusted; or reviewed with decision to maintain current orders (MOD). Use/consideration of a therapy requiring intensive monitoring (HIGH). Estimated MDM: High (17740/69353) Note: the above MDM determinations are made [...] loss Fluid Accumulation: No significant fluid accumulation Signal Maintenance Technician Strength: Not Performed Nutrition Assessment: Patient is a 57-year-old transgender male with history of type 2 diabetes, hypertension, hyperlipidemia, diabetic polyneuropathy, s/p right AKA and he presented to the hospital from senior care for hypoglycemia/unresponsiveness. Per notes patient has had poor p.o. intake for the last 4 days in addition to nausea and vomiting. However it appears that he was noted to be unresponsive and was found to have a blood glucose of 36 in the senior care. Patient had received 260 units of U-500 [...] Stated he was drinking "health shakes" at senior care SECTION HAND. Patient requesting to have Ensure HP 3x/day. [...] (kg): 53 kg Total Energy Requirements (kcals/day): 0568-6549 (30-35) Weight Used for Protein Requirements: Adjusted Weight in Kg Used for Protein Requirements: 53 kg Estimated Total Protein (g/day): 53-69 (1.0-1.3) Estimated Daily Total Fluid (ml/day): per MD Nutrition Related Findings: +bowel sounds; nausea; BM 09/10; -I&O; HgbA1c 7.7% (10/09/23) Wound Type: None BMP: Recent Labs 10/09/23 0903 10/10/23 0227 10/11/23 0355 NA 130* -- 128* K 4.5 -- 4.2 CL 98 -- 95* CO2 23 -- 22 BUN 23 -- 28 CREATININE 0.76 -- 1.30 GLUCOSE 344* 45* 397* CALCIUM 8.7 -- 8.7 MG -- -- 1.3* HEPATIC: Recent Labs 10/11/23 035 AST 20 ALT 28 BILITOT 0.7 ALKPHOS [...] 152 kg (335 lb) (03/08/23 Deedee scale) [place] Body Weight (lbs) (Calculated): 130 lbs [place] Body Weight (Kg) (Calculated): 59 kg Weight Adjustment For: Amputation % Weight Adjustment: 10.1 - AKA Total Adjusted Percentage (Calculated): 10.1 Adjusted [place] Body Weight (lbs) (Calculated): 116.9 lbs Adjusted [place] Body Weight (kg) (Calculated): 53.14 kg BMI [...] Weight Discharge Planning: Continue current diet Marcela Escamilla MS RD LD Contact: [employer] or *[phone] Images from the original note were not included. [facility] - Infectious Diseases Attending Progress Note Subjective- [...] IV ampicillin/sulbactam. Plan is to return to [facility] when medically stable. Objective- Vitals- Patient Vitals [...] Component Value Date/Time NA 128 (L) 10/11/2023 035 K 4.2 10/11/2023 035 CL 95 (L) 10/11/2023 035 CO2 22 10/11/2023 0355 CO2 23 02/09/2023 1022 BUN 28 10/11/2023 0355 BUN 26 (H) 02/09/2023 1022 CREATININE 1.30 10/11/2023 035 CREATININE 0.86 02/09/2023 1022 GLUCOSE 397 (H) 10/11/2023 0355 GLUCOSE 433 (H) 02/09/2023 1022 CALCIUM 8.7 10/11/2023 0355 CALCIUM 9.2 02/09/2023 1022 PROT 6.5 10/11/2023 0355 PROT 6.4 02/09/2023 1022 BILITOT 0.7 10/11/2023 035 BILITOT 0.3 02/09/2023 1022 ALKPHOS 143 (H) 10/11/2023 035 ALKPHOS 178 (H) 02/09/2023 1022 AST 20 [...] LABEOS 1.0 12/08/2020 1558 BASOPCT 0.8 10/08/2023 030 NEUTROABS 6.5 10/08/2023 0307 Micro- 10/07 Blood [...] ampicillin/sulbactam History of Present Illness- Maria Luisa Ophelia is a 57 y/o transgender M (pronouns [...] be of moderate complexity. Mukul Coreas DO [facility] Infectious Diseases Office Tel. [phone] Department of Internal Medicine Division of Endocrinology, Diabetes, & Metabolism Endocrinology Note Patient Name: Will Jacinto : 1965 AGE: 57 y.o. Room/Bed: [facility] A Admission Date: 10/07/2023 Visit Date: 10/11/2023 Reason for Endocrine Consult: U-500 dosing, hypoglycemia Provider/Team Requesting Consult: YUNIER PCP: Jared Guzman Outpt Ctc Operator: Dr. Lee ASSESSMENT: Type 2 diabetes with [...] and he presented to the hospital from senior care for hypoglycemia/unresponsiveness. Patient had received 260 units [...] Lying Lying Pulse: [phone] Resp: Temp: 36.3 C (97.4 F) (!) 35.7 [...] Intake/Output Summary (Last 24 hours) at 10/11/2023 0947 Last data filed at 10/11/2023 0646 Gross [...] before lunch/285 units before dinner Lactobacillus Acid-Pectin (Acidophilus/Baldwin Pectin) tablet 1 tablet, Oral, 2 times [...] found for: CHOLHDLRATIO No results found for: [id number] Lab Results Component Value Date TSH 2.356 11/26/2020 Radiology reportsas per the Radiologist Radiology: CT abdomen pelvis w contrast Result Date: 10/08/2023 [facility] Name: [facility] 1965 [id number] Exam Date/Time: 10/08/2023 09:36 Procedure: CT ABDOMEN [...] 10/07/2023 Patient Name: WILL JACINTO : [address] [facility]#: [id number] Exam Date/Time: 10/07/2023 07:29 Procedure: CT HEAD [...] lower leg COVID 12/08/2021 Depression Diabetes mellitus ([facility]) Type II, on insulin Disease [...] soft tissue disorders Other symbolic dysfunctions Schizophrenia ([facility]) Sleep apnea no CPAP Venous insufficiency Past Surgical History: Past Surgical History: Procedure Laterality Date ABCESS DRAINAGE Right 09/09/2018 FOOT; ACH COLONOSCOPY 09/19/[address] Hyde DILATION AND CURETTAGE OF UTERUS 05/18/2019 HYSTEROSCOPY 12/23/2021 LEG AMPUTATION THROUGH KNEE Right 06/16/2019 UPPER GASTROINTESTINAL ENDOSCOPY N/A 06/29/2023 Dr Sergio Sibley at [facility]; no specimens WISDOM TOOTH EXTRACTION Allergy(ies): No [...] were not included. Hospitalist Progress Note 10/11/2023 [phone]: Please page [facility] night Hospitalist for any issues. Admit Date: 10/07/2023 PCP: Jared Guzman Room#: [id number] A Brief hospital course: Patient admitted 10/07/2023 for hypoglycemia 2/2 insulin use with poor PO intake, hypothermia, ?sepsis. 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 Initially presented from [facility] with hypoglycemia and unresponsiveness, POC glucose 36. [...] sodium chloride 0.9 % 100 mL IVPB (Add-[place]), 3,000 mg, IntraVENous, q6h, Skylar Larkin PA-C, Last Rate: 200 mL/hr at 10/11/23 0646, 3,000 mg at 10/11/23 0646 ARIPiprazole (Abilify) tablet 10 mg, 10 mg, Oral, q24h, JEREMY Liao CNP, 10 mg at 10/09/23 1751 aspirin EC tablet 81 mg, 81 mg, Oral, Daily, JEREMY Liao CNP, 81 mg at 10/10/23906 atorvastatin (Lipitor) tablet 10 mg, 10 mg, Oral, Nightly, JEREMY Liao CNP, 10 mg at 10/10/232042 clotrimazole (Lotrimin) 1 [...] Daily, JEREMY Liao CNP, 180 mg at 10/10/23908 enoxaparin (Lovenox) syringe 30 mg, 30 mg, SubCUTAneous, 2 times per day, JEREMY Liao CNP, 30 mg at 10/10/232043 FLUoxetine (PROzac) capsule 40 mg, 40 mg, Oral, Daily, JEREMY Liao CNP, 40 mg at 10/10/23908 gabapentin (Neurontin) capsule 100 mg, 100 mg, Oral, BID, JEREMY Liao CNP, 100 mg at 10/10/232042 glucagon (human recombinant) injection 1 mg, 1 mg, IntraMUSCular, PRN, JEREMY Liao CNP glucose oral gel 15 g, 15 g, Oral, PRN, JEREMY Liao CNP, 15 g at 10/10/23 0216 influenza vac subunit quadrivalent (Flucelvax) injection 0.5 mL, 0.5 mL, IntraMUSCular, Once, JEREMY Liao CNP Insulin Lispro (Humalog) injection 0-12 Units, 0-12 Units, SubCUTAneous, TID Amrita CUEVAS MD Insulin Lispro (Humalog) injection 25 Units, 25 Units, SubCUTAneous, TID Amrita CUEVAS MD insulin NPH (Isophane) (HumuLIN N,NovoLIN N) injection 40 Units, 40 Units, SubCUTAneous, BID, Amrita Garcia MD labetalol (Normodyne,Trandate) injection 20 mg, 20 mg, IntraVENous, q6h PRN, Ricardo Spring MD, 20 mg at 10/10/23 223 lisinopril tablet 40 mg, 40 mg, Oral, Daily, Mayda Olmstead MD, 40 mg at 10/10/231823 megestrol (Megace) tablet 20 mg, 20 mg, Oral, BID, Rachael Robertson APRN - TELEPHOTO ENGINEER, 20 mg at 10/10/232042 melatonin tablet 10 mg, 10 mg, Oral, Nightly, Rachael Robertson APRN - TELEPHOTO ENGINEER, 10 mg at 10/10/232042 metoprolol tartrate (Lopressor) tablet 25 mg, 25 mg, Oral, BID, Rachael Robertson APRN - TELEPHOTO ENGINEER, 25 mg at 10/10/232042 ondansetron (Zofran) tablet 4 mg, 4 mg, Oral, q6h PRN, Rachael Robertson APRN - TELEPHOTO ENGINEER, 4 mg at 10/10/232042 pantoprazole (ProtoNix) EC tablet 40 mg, 40 mg, Oral, qAM AC, Rachael Robertson APRN - TELEPHOTO ENGINEER, 40 mg at 10/11/23 0614 polyethylene glycol (PEG) 3350 (Miralax) packet 17 g, 17 g, Oral, Daily PRN, Rachael Robertson APRN - TELEPHOTO ENGINEER polyethylene glycol (PEG) 3350 (Miralax) packet 17 g, 17 g, Oral, Daily, Rachael Robertson APRN - TELEPHOTO ENGINEER, 17 g at 10/08/23 1042 prochlorperazine (Compazine) [...] MD Division of Hospitalist Medicine Inpatient Medical Services/[facility] Data: Moderate (3x CAT1 -OR- 1x CAT2 -OR- 1x CAT3) Complexity: Acute illness or injury posing a threat to life or body function (HIGH). Risk: Use/consideration of therapy requiring intensive monitoring: parenteral cardioactive electrolyte repletion, ex: calcium gluconate, magnesium, potassium (rapid hypotension, arrhythmias or arrest); telemetry, BMP (HIGH). Estimated MDM: High (23070/73335) Note: the above MDM determinations are made by me for my own use to estimate my end-of-day billing codes. However, documentation is reviewed by professional coders; following their review of documentation, and in accordance with current AMA CPT, CMS, and ACDIS guidelines, the actual billing code(s) may differ from my estimate. [facility] Department Progress Note Comment or [...] from the original note were not included. [facility] - Infectious Diseases Advanced Practice Provider Progress [...] PROCAL 0.83* -- -- -- Recent Labs 10/08/23306 WBC 10.1 HGB 10.6* HCT 31.6 PLT 339 LYMPHOPCT 26.5 MONOPCT 7.3 BASOPCT 0.8 NEUTROABS 6.5 Micro: No results for input(s): "COVID19" in the last 72 hours. 10/07 Blood Cx: 11/09 Acinetobacter lwoffii 10/07 Resp PCR Panel: neg [...] Guzman Room#: W4-429/W4-429 A Interval History: PT denies any complaints today, awake and alert. Overnt pt became hypotensive and lethargic and found to have low blood glucose levels. Pt started on reg diet today. Adult diet Regular; Isolation Tray (Disposables); 5 carb choices (75 gm/meal) @[id number]@ 24HR INTAKE/OUTPUT: Intake/Output Summary (Last 24 hours) [...] PLT 339 BMP: Recent Labs 10/08/2330610/09/23 0903 10/10/23226 NA 130* 130* -- K 4.2 4.5 [...] 10/10/2023 Division of Hospitalist Medicine Inpatient Medical Services/[facility] [place]AGER: [phone] Department of Internal Medicine Division of Endocrinology, Diabetes, & Metabolism Endocrinology Note Patient Name: Will Jacinto : 1965 AGE: 57 y.o. Room/Bed: [facility] A Admission Date: 10/07/2023 Visit Date: 10/10/2023 Reason for Endocrine Consult: U-500 dosing, hypoglycemia Provider/Team Requesting Consult: IMS PCP: Jared Guzman Outpt Ctc Operator: Dr. Lee ASSESSMENT: Type 2 diabetes with [...] and he presented to the hospital from senior care for hypoglycemia/unresponsiveness. Patient had received 260 units [...] before lunch/285 units before dinner Lactobacillus Acid-Pectin (Acidophilus/Baldwin Pectin) tablet 1 tablet, Oral, 2 times [...] found for: CHOLHDLRATIO No results found for: [id number] Lab Results Component Value Date TSH 2.356 11/26/2020 Radiology reportsas per the Radiologist Radiology: CT abdomen pelvis w contrast Result Date: 10/08/2023 [facility] 1965 [id number] Exam Date/Time: 10/08/2023 09:36 Procedure: CT ABDOMEN [...] 10/07/2023 Patient Name: WILL JACINTO : [address] [facility]#: [id number] Exam Date/Time: 10/07/2023 07:29 Procedure: CT HEAD [...] ENDOSCOPY N/A 06/29/2023 Dr Sergio Sibley at [facility]; no specimens WISDOM TOOTH EXTRACTION Allergy(ies): No [...] state/prognosis on the date of this note. [facility] Department Progress Note Comment or [...] Tray (Disposables); 5 carb choices (75 gm/meal) @[id number]@ 24HR INTAKE/OUTPUT: Intake/Output Summary (Last 24 hours) [...] side (HCC) Anxiety disorder Bipolar 1 disorder ([facility]) Blood circulation, collateral Cellulitis chronic L lower leg COVID 12/08/2021 Depression Diabetes mellitus ([facility]) Type II, on insulin Disease of blood and blood forming organ Endometrial carcinoma ([facility]) 11/25/2020 Endometrial hyperplasia Foot ulcer ([facility]) Hx of blood clots RLE prior to amputation Hyperlipidemia Hypertension Lymphedema 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, RLE Morbidly obese ([facility]) Muscle weakness Osteomyelitis (HCC) Osteomyelitis (HCC) 2019 RLE Other lack of coordination Other specified soft tissue disorders Other symbolic dysfunctions Schizophrenia ([facility]) Sleep apnea no CPAP Venous insufficiency LABS: CBC: Recent Labs 10/07/2362610/08/23306 WBC 13.3* 10.1 RBC 4.75 3.72 HGB 13.2 10.6* HCT 41.5 31.6 MCV 87.4 84.9 RDW 14.2 15.7* PLT 438 339 BMP: Recent Labs 10/07/2362610/08/2330610/09/23 0903 NA 138 130* 130* K 4.4 4.2 4.5 CL 100 100 98 CO2 27 22 23 BUN 20 34 23 CREATININE 0.74 1.09 0.76 GLUCOSE 120* 288* 344* CALCIUM 8.8 8.1* 8.7 ANIONGAP 11 8 9 LIVER PROFILE: Recent Labs 10/07/2362610/08/23306 AST 36 33 ALT 46 42 BILITOT [...] : Mayda Olmstead MD 10/09/[address] [facility] Inpatient Medical Services/[facility] PAGER: [phone] Vancomycin therapy has been discontinued by Skylar Larkin PA-C on 10/09/23. Thank you for the consult. Pharmacy signing off for vancomycin dosing. Thais Esqueda RPh, PharmD Date: 10/09/23 Time: 11:39 AM Department of Internal Medicine Division of Endocrinology, Diabetes, & Metabolism Endocrinology Note Patient Name: Will Jacinto : 1965 AGE: 57 y.o. Room/Bed: [facility]/[address] Admission Date: 10/07/2023 Visit Date: 10/09/2023 Reason for Endocrine Consult: U-500 dosing, hypoglycemia Provider/Team Requesting Consult: [facility] PCP: Jared Guzman Outpt Ctc Operator: Dr. Lee ASSESSMENT: Type 2 diabetes with [...] and he presented to the hospital from senior care for hypoglycemia/unresponsiveness. Patient had received 260 units [...] Pulse: 89 98 98 82 Resp: 24 20 16 Temp: 36.6 C (97.8 F) 36.3 [...] before lunch/285 units before dinner Lactobacillus Acid-Pectin (Acidophilus/Baldwin Pectin) tablet 1 tablet, Oral, 2 times [...] found for: CHOLHDLRATIO No results found for: [id number] Lab Results Component Value Date TSH 2.356 [...] ENDOSCOPY N/A 06/29/2023 Dr Sergio Sibley at [facility]; no specimens WISDOM TOOTH EXTRACTION Allergy(ies): No [...] Vancomycin Dosing Service Progress Note Date: 10/09/23 Room:[facility] A Patient Name: Will Jacinto Allergies: Patient [...] Entered doses and random Vancomycin level into Cis[facility] Program. Current dosing regimen is Vancomycin 1500 milligrams Q 12 hours has predicted AUC of 526 mg/L*hr. Continue current dosing regimen. Will obtain random Vancomycin level with morning labs on or before 10/16/23. Will continue to follow renal function closely. Please page/call with questions. Date: 10/09/23 Time: 7:20 AM Name: Thais Esqueda RPh, PharmD Phone: [phone] Images from the original note were not included. Hospitalist Progress Note Subjective: Admit Date: 10/07/2023 PCP: Jared Guzman Room#: W4-429/W4-429 A Interval History: PT reports nausea, vomiting improved, no diarrhea, abd pain improved since admission, LLE erythema has been present for many years, no pain in his LLE. no other complaints. Adult diet Full liquid; 5 carb choices (75 gm/meal) @[id number]@ 24HR INTAKE/OUTPUT: Intake/Output Summary (Last 24 hours) [...] CPAP Venous insufficiency LABS: CBC: Recent Labs 10/07/2362610/08/23306 WBC 13.3* 10.1 RBC 4.75 3.72 HGB 13.2 10.6* HCT 41.5 31.6 MCV 87.4 84.9 RDW 14.2 15.7* PLT 438 339 BMP: Recent Labs 10/07/2362610/08/23306 NA 138 130* K 4.4 4.2 CL 100 100 CO2 27 22 BUN 20 34 CREATININE 0.74 1.09 GLUCOSE 120* 288* CALCIUM 8.8 8.1* ANIONGAP 11 8 LIVER PROFILE: Recent Labs 10/07/2362610/08/23306 AST 36 33 ALT 46 42 BILITOT [...] 10/08/2023 Division of Hospitalist Medicine Inpatient Medical Services/[facility] PAGER: [phone] Pharmacy Managed Vancomycin Dosing Service Consult Note Recent Labs 10/07/23 0627 10/08/23 0307 BUN 20 34 CREATININE 0.74 1.09 Updated InsightRx: [x] doses administered [x] SCr [] random level (to be drawn 122 AM) Current regimen vancomycin 1500 mg every 12 hours, predicted AUC = 538 mg/L*hr (goal 400-600 mg/L*hr) Note serum creatinine trend, continue to monitor renal function. AUC therapeutic. Continue current regimen. Will assess random level with morning labs 10/09 and adjust as appropriate. Will follow renal function closely. DATE: 10/08/23 Time: 8:10 AM Ezio Orr PharmD Available via Secure Chat/Crowdtap documented in this encounter [facility] 10-16-2023 Nurse Note Report called to [facility]. Nursing aware of transport time scheduled for 1929. Pt aware of transport plans, agreeable. Blood sugar at 11 pm 117. At 0210 AM, patient was found to be diaphoretic and lethargic able to respond to verbal stimulation and was AOX3. Blood sugar checked. was 43. Doctor and Endocrine notified. Patient was given orange juice and 2 packets of oral glucose gel. Blood sugar rechecked at 228 was 49. D5W started per protocol. Lab [...] for admit orders. documented in this encounter [facility] 10-16-2023 Hospital course Narrative Images from [...] Gram-negative bacteria Sepsis without acute organ dysfunction ([facility]) Diabetic gastroparesis associated with type 2 diabetes mellitus ([facility]) ([facility]) Type 2 diabetes mellitus with hyperglycemia, with long-term current use of insulin ([facility]) Class 3 severe obesity due to excess calories with serious comorbidity and body mass index (BMI) of 60.0 to 69.9 in adult ([facility]) HOSPITAL COURSE: Patient admitted 10/07/2023 for hypoglycemia 2/2 insulin use with poor PO intake, hypothermia, ?sepsis. 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 Initially presented from [facility] with hypoglycemia and unresponsiveness, POC glucose 36. [...] 325 MG tablet Commonly known as: Tylenol Acidophilus/Baldwin Pectin tablet ARIPiprazole 10 MG tablet Commonly [...] DISPOSITION: Skilled Facility FACILITY/HOME CARE AGENCY NAME: [facility] DISCHARGE TIME: 40 minutes SIGNED: Marcio Armando MD 10/16/2023, 5:31 PM See today's progress note for physical exam. documented in this encounter [facility] 10-16-2023 Miscellaneous Notes Discharge med list transmitted to [facility] via Careport per TCC request. Discharge order is in place, but contingent upon what pt's blood sugar will be at dinner. Tasked EYELET ROW MARKER to send discharge paperwork to [facility]. Spoke with BEE Herron at [facility] to inform her of probable discharge at 6:30. TCC made INDUCTION COORDINATION POWER ENGINEER aware the DC may be cancelled depending on his blood sugars tonight with dinner. INDUCTION COORDINATION POWER ENGINEER verbalized understanding. Pt also made aware of probable dc back to facility tonight. TCC to follow and assist as needed. MAR and updated notes placed to [facility] via Careport per TCC request. Await review and response regarding ability to accept. TCC notified. TCC informed that pt can go back to [facility] as long as blood sugar is acceptable after dinner. Was asked to arrange transportation, under the assumption that pt will be discharged. Transportation set for 6:30 with [facility]. Transportation form on chart. Pt is LTC LOC and does not need 7000 or auth. Tasked EYELET ROW MARKER to send MAR to facility. Once the [...] Glucose 528. Endocrine continues to follow. DCP: [facility] when clinically stable. TCC to follow. Discharge [...] 8 GMLOS: 5.1 [facility] TCC [facility]. Images from the original note were not included. Care Management Progress Note Pt remains on 4W. Positive blood cultures. PICC. Invanz Q24h until 10/21. Order in Media. Endocrine following, adjusting insulin improved to 250 this morning. DCP: [facility] when clinically stable. TCC to follow. Discharge [...] Mustafa DO 10/07/2023 3:52 PM 10/10/2023 Rosaura Mustafa, [...] with further issues [facility] TCC [facility]. Images from the original note were not included. Care Management Progress Note Pt remains on 4W. Positive blood cultures. PICC. Invanz Q24h until 10/21. Order in Media. Na 129. Endocrine following, adjusting insulin. DCP: [facility]. TCC to follow. Discharge Milestones and Delays [...] Robertson RN 10/08/2023 9:05 AM 10/10/2023 Rosaura Mutsafa DO 10/07/2023 3:52 PM 10/10/2023 Rosaura Mustafa [...] Endo, ID following. DC plan: return to [facility] when clinically stable. Bed hold, no auth [...] Infectious Disease following. Plan is return to [facility] when medically stable. Bed hold No auth [...] 4 GMLOS: 4.1 Return referral placed to [facility] via Careport per TCC request. Await review and response regarding ability to accept. TCC notified. Care Managment Initial Assessment Date: 10/08/2023 Patient Name: Will Jacinto : 1965 Patient Information Source of Information: Patient Cognition/Language: Impaired Permission given to speak with patient customer service representative teacher/caregiver as indicated: Confirmation of Payer with patient/family: Payer Name: [facility] : No Confirmation of Primary Care Physician: Primary Caregiver: If assistance needed, confirmed caregiver ready, willing and able to care for patient at discharge: Yes Confirmed with: Living Arrangements Current Residence: Number of Floors Number of Entry Steps: Bed/Bath Levels: Facility: Senior Living[facility] Facility Name: [facility] Plan to Return: Yes Lives with: Alone [...] Plan Patient expects to be discharged to: [facility]. Discharge Planning Actions: Patient's Choice Rights and [employer] and Collaborative Relationships Disclosed as Indicated for Post-Acute Care: Interdisciplinary Team Engagement: Social Work Referral for: Additional Information: [place] per patient. Lives at [facility]. Plan is return at discharge. Referral in [facility]. Demetria Robertson RN Problem: Safety - Adult [...] include monitor bglucose. documented in this encounter [facility] 10-13-2023 Hospital Discharg e instructions Gricelda [...] Contact Information Primary Emergency Contact: Jovana Quesada (EZEKIELA) Relation: Relative Secondary Emergency Contact: Carola Lubin Mobile Relation: Other Past Surgical History: Past Surgical History: Procedure Laterality Date ABCESS DRAINAGE Right 09/09/2018 FOOT; ACH COLONOSCOPY 09/19/[address] Hyde DILATION AND CURETTAGE OF UTERUS 05/18/2019 HYSTEROSCOPY 12/23/2021 LEG AMPUTATION THROUGH KNEE Right 06/16/2019 UPPER GASTROINTESTINAL ENDOSCOPY N/A 06/29/2023 Dr Sergio Sibley at [facility]; no specimens WISDOM TOOTH EXTRACTION Immunization History: Immunization History Administered Date(s) Administered Covid-19, Pfizer Cazares Top, Do Not Dilute, (Age 12 Y+), Im, L 02/26/2022 Influenza, injectable, quadrivalent, preservative free 01/14/2019, 08/12/2021 Pfizer SARS-CoV-2 Vaccination 11/13/2020, 12/04/2020, 08/28/2021 Active Problems: Medical Problems Problem List * (Principal) Hypoglycemia Hypertension Chest pain Chest pain, unspecified type Upper abdominal pain Abdominal pain Endometrial carcinoma ([facility]) Endometrial hyperplasia Diabetic hyperosmolar non-ketotic state (CMS/HCC) ([facility]) Thickened endometrium Ileus ([facility]/HCC) ([facility]) Complex endometrial hyperplasia with atypia Diabetic gastroparesis associated with type 2 diabetes mellitus ([facility]) ([facility]) Esophagitis Nausea and vomiting Hyperlipidemia Cellulitis and abscess of lower extremity Chronic acquired lymphedema Cellulitis Hyperandrogenism Uncontrolled type 2 diabetes mellitus with complication Chronic osteomyelitis ([facility]) ([facility]) 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 ([facility]) Class 3 severe obesity due to excess calories with serious comorbidity and body mass index (BMI) of 50.0 to 59.9 in adult ([facility]) Type 2 diabetes mellitus with hyperglycemia, with long-term current use of insulin ([facility]) Hyperglycemia Post-menopausal bleeding Morbid obesity ([facility]) Left leg cellulitis Diabetic foot infection S/P AKA (above knee amputation) unilateral, right ([facility]) Class 3 severe obesity due to excess calories with serious comorbidity and body mass index (BMI) of 60.0 to 69.9 in adult ([facility]) Isolation/Infection: Contact MRSA, MDRO Nurse [...] assistance Toileting Total assistance Feeding Minimal assistance Flask Maker Minimal assistance Med Delivery yes Wound Care [...] Score: @READMISSIONRISKDETAILS@ Discharging to Facility/ Agency Name: [facility] Address: [address] [place] [address] Dialysis Facility (if applicable) Name: Address: Dialysis Schedule: Phone: Fax: Gusset Maker/Pipe Buffer signature: ICIAN SECTION Prognosis: good Condition at [...] the diagnosis listed and that he requires long-term facility for greater than 30 days. Update Admission H&P: No change in H&P PHYSICIAN SIGNATURE: documented in this encounter [facility] 10-12-2023 Procedure note Associated Ord er(s): [...] lumen Catheter size: 5 Fr Lot #: [id number] Trimmed at (cm): 41 Inserted at (cm): 41 Ultrasound guidance: Yes Post-procedure: Post-procedure: Antimicrobial dressing applied and securement device Description/Findings: Flushes easily and blood returned Estimated blood loss: < 5 mL Specify complication(s): No apparent complications Follow-up chest x-ray: Ordered General Comments: Infiltrated PIV site right AC, tender red IV right wrist documented in this encounter [facility] 10-09-2023 Consult note Associated Order (s): IP CONSULT TO INFECTIOUS DISEASES Images from the original note were not included. [facility] - Infectious Diseases Advanced Practice Provider [...] was found unresponsive and diaphoretic in the assistant corporate controller; POC glucose 36. He was given 2 [...] ENDOSCOPY N/A 06/29/2023 Dr Sergio Sibley at [facility]; no specimens WISDOM TOOTH EXTRACTION Current Medications: Current Facility-Administered Medications Medication Dose Route Frequency Provider Last Rate Last Admin acetaminophen (Tylenol) tablet 650 mg 650 mg Oral q4h PRN JEREMY Liao CNP 650 mg at 10/08/23 0554 ARIPiprazole (Abilify) tablet 10 mg 10 mg Oral q24h Rachael Robertson APRN - KRANTHI 10 mg at 10/08/23 1639 aspirin EC tablet 81 mg 81 mg Oral Daily Rachael Robertson APRN - KRANTHI 81 mg at 10/09/23 0855 atorvastatin (Lipitor) tablet 10 mg 10 mg Oral Nightly Rachael Robertson APRN - KRANTHI 10 mg at 10/08/23 2308 clotrimazole (Lotrimin) 1 % cream Topical BID JEREMY Liao CNP Given at 10/09/23 0852 dextrose 5 % infusion 100 mL/hr IntraVENous PRN JEREMY Liao CNP dextrose 50 % solution 12.5 g 12.5 g IntraVENous PRN Rachael Robertson APRN - KRANTHI dilTIAZem CD (Cardizem CD) 24 hr capsule 180 mg 180 mg Oral Daily JEREMY Liao CNP 180 mg at 10/09/23 0855 enoxaparin (Lovenox) syringe 30 mg 30 mg SubCUTAneous 2 times per day JEREMY Liao CNP 30 mg at 10/09/23 0856 FLUoxetine (PROzac) capsule 40 mg 40 mg Oral Daily Rachael Robertson APRN - KRANTHI 40 mg at 10/09/23 0855 gabapentin (Neurontin) capsule 100 mg 100 mg Oral BID Rachael Robertson APRN - KRANTHI 100 mg at 10/09/23 0856 glucagon (human recombinant) injection 1 mg 1 mg IntraMUSCular PRN JEREMY Liao CNP glucose oral gel 15 g 15 g Oral PRN JEREMY Liao CNP influenza vac subunit quadrivalent (Flucelvax) injection 0.5 mL 0.5 mL IntraMUSCular Once JEREMY Liao CNP insulin regular (HumuLIN R U-500) CONCENTRATED injection 100 Units 100 Units SubCUTAneous TID Amrita Garcia MD lisinopril tablet 40 mg 40 mg Oral q24h Rachael Robertson APRN - KRANTHI 40 mg at 10/08/23 1639 megestrol (Megace) tablet 20 mg 20 mg Oral BID Rachael Robertson APRN - KRANTHI 20 mg at 10/09/23 0855 melatonin tablet 10 mg 10 mg Oral Nightly Rachael Robertson APRN - KRANTHI 10 mg at 10/08/23 2308 metoclopramide (Reglan) tablet 10 mg 10 mg Oral 4x daily Rachael Robertson APRN - KRANTHI 10 mg at 10/09/23 0855 metoprolol tartrate (Lopressor) tablet 25 mg 25 mg Oral BID Rachael Robertson APRN - KRANTHI 25 mg at 10/09/23 0855 ondansetron (Zofran) tablet 4 mg 4 mg Oral q6h PRN Rachael Robertson APRN - TELEPHOTO ENGINEER 4 mg at 10/08/23 2044 pantoprazole (ProtoNix) EC tablet 40 mg 40 mg Oral qAM AC Rachael Robertson APRN - KRANTHI 40 mg at 10/09/23 0654 piperacillin-tazobactam (Zosyn) IVPB 3,375 mg 3,375 mg IntraVENous q8h JEREMY Liao CNP Stopped at 10/09/23 0645 polyethylene glycol (PEG) 3350 (Miralax) packet 17 g 17 g Oral Daily PRN Rachael Robertson DIRECTOR OF COMMUNITY SERVICES - TELEPHOTO ENGINEER polyethylene glycol (PEG) 3350 (Miralax) packet 17 g 17 g Oral Daily Rachael Robertson, DIRECTOR OF COMMUNITY SERVICES - TELEPHOTO ENGINEER 17 g at 10/08/23 1042 vancomycin (Vancocin) 1500 mg in NS 250 mL IVPB (compounded premix) 1,500 mg IntraVENous q12h Rachael Marcelo, DIRECTOR OF COMMUNITY SERVICES - TELEPHOTO ENGINEER 125 mL/hr at 10/09/23 0656 1,500 mg [...] the last 72 hours. 10/07 Blood Cx: 11/09 GNB 10/07 Resp PCR Panel: neg 10/07 [...] Jacinto : 1965 AGE: 57 y.o. Room/Bed: [facility]/[address] Admission Date: 10/07/2023 Visit Date: 10/08/2023 Reason for Endocrine Consult: U-500 dosing, hypoglycemia Provider/Team Requesting Consult: [facility] PCP: Jared Guzman Outpt Ctc Operator: Dr. Lee ASSESSMENT: Type 2 diabetes with [...] U 500 Insulin doses to be decided Kiaraity-to be decided Outpt Follow Up-- 10/27/2023 SUBJECTIVE/HPI: CHIEF COMPLAINT: Chief Complaint Patient presents with Hypoglycemia Patient is a 57-year-old transgender male with history of type 2 diabetes, hypertension, hyperlipidemia, diabetic polyneuropathy, s/p right AKA and he presented to the hospital from senior care for hypoglycemia/unresponsiveness. Per notes patient has had [...] a blood glucose of 36 in the senior care. Patient had received 260 units of U-500 [...] mentioned in HPI. OBJECTIVE: Vitals: 10/07/23 1606 10/07/23 2014 10/08/23 0246 10/08/23 0725 BP: 123/82 101/68 93/54 [...] before lunch/285 units before dinner Lactobacillus Acid-Pectin (Acidophilus/Baldwin Pectin) tablet 1 tablet, Oral, 2 times [...] found for: CHOLHDLRATIO No results found for: [id number] Lab Results Component Value Date TSH 2.356 11/26/2020 Radiology reportsas per the Radiologist Radiology: CT abdomen pelvis w contrast Result Date: 10/08/2023 [facility] 1965 [id number] Exam Date/Time: 10/08/2023 09:36 Procedure: CT ABDOMEN [...] 10/07/2023 Patient Name: [facility] 1965 [id number] Exam Date/Time: 10/07/2023 07:31 Procedure: XR CHEST [...] 10/07/2023 Patient Name: WILL JACINTO : [address] [facility]#: [id number] Exam Date/Time: 10/07/2023 07:29 Procedure: CT HEAD [...] ENDOSCOPY N/A 06/29/2023 Dr Sergio Sibley at [facility]; no specimens WISDOM TOOTH EXTRACTION Allergy(ies): No [...] Date: 10/07/23 Consulted By: Rachael Robertson CNP Room:[facility] Patient Name: Will Jacinto Allergies: Patient [...] via Secure Chat documented in this encounter [facility] 10-07-2023 History and physical note Images from the original note were not included. Attending History and Physical Admit Date: 10/07/2023 PCP: Jared Guzman CHIEF COMPLAINT: Hypoglycemia Reason for Admission: Hypoglycemia History Obtained From: patient HISTORY OF PRESENT ILLNESS: Will Jacinto is a 57 y.o. adult (transgender female to male) with medical history of diabetes, osteomyelitis status post right above-knee amputation, schizophrenia, gastroparesis/intractable nausea/vomiting, endometrial carcinoma who presents to the emergency department from [facility] for hypoglycemia/unresponsiveness. Staff nurse at facility provided [...] intake for dinner at 5p (?some soup). Ouurq-ja-mwjo glucose last night was 116 and he was given 3 glasses of apple juice prior to bed. Found unresponsive and diaphoretic at 0445 this a.m. Yndzt-ac-dzoj glucose 36 at that time. Given 2 doses of glucagon which improved his vzzwd-ns-skjq glucose to 61. Glucose was 90 upon [...] lower leg COVID 12/08/2021 Depression Diabetes mellitus ([facility]) Type II, on insulin Disease of blood and blood forming organ Endometrial carcinoma ([facility]) 11/25/2020 Endometrial hyperplasia Foot ulcer ([facility]) Hx of blood clots RLE prior to amputation Hyperlipidemia Hypertension Lymphedema 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, RLE Morbidly obese ([facility]) Muscle weakness Osteomyelitis ([facility]) Osteomyelitis ([facility]) 2019 RLE Other lack of coordination Other specified soft tissue disorders Other symbolic dysfunctions Schizophrenia ([facility]) Sleep apnea no CPAP Venous insufficiency Past Surgical History: Past Surgical History: Procedure Laterality Date ABCESS DRAINAGE Right 09/09/2018 FOOT; [facility] COLONOSCOPY 09/19/[address] Hyde DILATION AND CURETTAGE OF UTERUS 05/18/2019 HYSTEROSCOPY 12/23/2021 LEG AMPUTATION THROUGH KNEE Right 06/16/2019 UPPER GASTROINTESTINAL ENDOSCOPY N/A 06/29/2023 Dr Sergio Sibley at [facility]; no specimens WISDOM TOOTH EXTRACTION Social History: [...] before lunch/285 units before dinner Lactobacillus Acid-Pectin (Acidophilus/Baldwin Pectin) tablet Take 1 tablet by mouth [...] appropriate, normal insight. DATA: CBC: Recent Labs 10/07/23 06 WBC 13.3* RBC 4.75 HGB 13.2 HCT 41.5 MCV 87.4 RDW 14.2 PLT 438 BMP: Recent Labs 10/07/23 06 NA 138 K 4.4 CL 100 CO2 [...] Emergency Contact: Carola Lubin Mobile Relation: Other Rachael Robertson APRN - [facility] Division of Hospitalist Medicine Inpatient Medical Services/[facility] Associated attestation - Carly Nino MD - 10/08/2023 6:08 PM EST I have reviewed the case with the PA/CUTTING MACHINE TENDER. I agree with the current plan of [...] patient. A full chart review was performed. [facility] Hospitalist documented in this encounter [facility] 10-07-2023 Emergency department Note [facility] for [facility]. Hand off report given to medics. Breonna Palmer RN 10/07/23 4494 Phoned [facility]. Hand off report given to PASTORA Martínez. Breonna Palmer RN 10/07/23 7554 Patient given orange juice. Breonna Palmer RN 10/07/23 1423 Phoned PASTORA Ochoa at [facility] and gave update that patient is to be admitted to [facility] and is currently in stable condition. RN appreciative of update. Breonna Palmer RN 10/07/23 1414 [facility]oned [facility] for transport. ETA 1530 Breonna Palmer RN 10/07/23 1331 Repositioned patient for comfort with 2 assists. Breonna Palmer RN 10/07/23 0958 Cleansed patient's face with wash clothe per request, lip balm applied and patient given sips of water. No further needs at this time. Breonna Palmer RN 10/07/23 0952 Matthews warmer removed from patient. Oral temp 97.5 F. Physician informed. Breonna Palmer RN 10/07/23 09 Return call from ICU, Dr Tinajero. Diane [...] who presents to the emergency department from [facility] for hypoglycemia/unresponsiveness. Spoke to Juliane, nurse taking care of him overnight, who reports he was last seen well at 0400 this morning when he asked patient care nursing assistant to turn on fan because he felt warm. Entirety of HPI obtained from transporting EMS staff and NE staff due to patient unresponsiveness. Juliane reports [...] intake for dinner at 5p (?some soup). Qafzn-fd-aoal glucose last night was 116 and he was given 3 glasses of apple juice prior to bed. Found unresponsive and diaphoretic at 0445. Bjoli-mv-jpmk glucose 36 at that time. Given 2 doses of glucagon which improved his hfhry-pk-gqbt glucose to 61. Glucose was 90 upon EMS arrival. EMS gave nothing in transport. Repeat rofcm-qp-xxga glucose 68 here. Juliane reports that mentation [...] side (HCC) Anxiety disorder Bipolar 1 disorder ([facility]) Blood circulation, collateral Cellulitis chronic L lower leg COVID 12/08/2021 Depression Diabetes mellitus ([facility]) Type II, on insulin Disease [...] soft tissue disorders Other symbolic dysfunctions Schizophrenia ([facility]) Sleep apnea no CPAP Venous insufficiency SURGICAL HISTORY Past Surgical History: Procedure Laterality Date ABCESS DRAINAGE Right 09/09/2018 FOOT; [facility] COLONOSCOPY 09/19/[address] Hyde DILATION AND CURETTAGE OF UTERUS 05/18/2019 HYSTEROSCOPY 12/23/2021 LEG AMPUTATION THROUGH KNEE Right 06/16/2019 UPPER GASTROINTESTINAL ENDOSCOPY N/A 06/29/2023 Dr Sergio Sibley at [facility]; no specimens WISDOM TOOTH EXTRACTION CURRENT MEDICATIONS [...] Abnormal Glucose 68 (*) Narrative: Performed by: [facility], [address] [place] [address] CLIA ID: [id number] LACTIC ACID WITH REFLEX - Normal LACTIC ACID 1.2 POCT GLUCOSE METER UNSOLICITED RESULTS - Normal Glucose 100 Narrative: Performed by: [facility], [address] [place] [address] CLIA ID: [id number] BLOOD CULTURE URINE CULTURE RESPIRATORY PATHOGENS PANEL BY PCR BLOOD CULTURE COMPLETE URINALYSIS WITH REFLEX TO CULTURE Narrative: The following orders were created for panel order Urinalysis Complete with reflex to Culture. Procedure Abnormality Status --------- ------ Complete Urinalysis[[id number]] Please view results for these tests on [...] who presents to the emergency department from [facility] for hypoglycemia/unresponsiveness. Spoke to Juliane, nurse taking care of him overnight, who reports he was last seen well at 0400 this morning when he asked patient care nursing assistant to turn on fan because he felt warm. Entirety of HPI obtained from transporting EMS staff and NE staff due to patient unresponsiveness. Juliane reports [...] intake for dinner at 5p (?some soup). Ezwyr-st-iwcb glucose last night was 116 and he was given 3 glasses of apple juice prior to bed. Found unresponsive and diaphoretic at 0445. Ulmew-fo-lgcv glucose 36 at that time. Given 2 doses of glucagon which improved his fwqpi-nz-teat glucose to 61. Glucose was 90 upon EMS arrival. EMS gave nothing in transport. Repeat pdoos-lh-cxjf glucose 68 here. Juliane reports that mentation [...] to be profoundly hypothermic at 33 C. Armando hugger placed. Care delayed secondary to acquisition of IV access. Patient necessitating ultrasound-guided IV line by myself. Repeat pphjw-rx-xlfm glucose upon obtaining IV line 100. Amp [...] nontender on repeat evaluation. Disposition changed to [facility] telemetry. Accepted by Dr. Spring [...] Jacinto, age 57, came to ED6 by [facility] for a chief complaint of hypoglycemia. [facility] stated senior care last seen him Aox3 at around 0400. certified nurses aide went in to check on pt and pt was unresponsive with a blood sugar of 36. Nurses at senior care gave him 2 glucagon IM injections and pt's blood sugar came up to 60. EMS reported a blood sugar of 90. On assessment, pt's rectal temp was 91.4F. Blood sugar was 63. Bear hugger applied. Physician put in 20G IV using the ultrasound. Amp of Dextrose given and liter of NS warmed infusing. torpedo shooter applied. Vitals obtained. documented in this encounter [facility] 09-20-2023 Telephone encounter Note Please keep doses the same thank you [facility] rocket staff Work Phone: 09-20-2023 Miscellaneous Notes Please keep doses the same thank you Images from the original note were not included. Patient BGL documented in this encounter [facility] 09-20-2023 Telephone encounter Note Images from the original note were not included. Patient BGL [facility] 08-31-2023 Telephone encounter Note Faxed response to [facility]. Thank you! [facility] 08-31-2023 Miscellaneous Notes Faxed response to [facility]. Thank you! Please keep doses the same thank you Images from the original note were not included. Patient's BGL documented in this encounter [facility] 08-30-2023 Telephone encounter Note Please keep doses the same thank you [facility] rocket staff Work Phone: 08-30-2023 Telephone encounter Note Images from the original note were not included. Patient's BGL [facility] 08-19-2023 Note Formatting of this n ote might be different from the original. RN called asking me to sign the med rec so the patient can be transported to [facility]< Signed the med reconciliation form [facility] Work Phone: 08-19-2023 Note Formatting of this n ote might be different from the original. RN called asking me to sign the med rec so the patient can be transported to [facility]< Signed the med reconciliation form [facility] rocket staff Work Phone: 08-19-2023 Miscellaneous Notes RN called asking me to sign the med rec so the patient can be transported to SNF< Signed the med reconciliation form Spoke with patient. Agreeable to returning back to [facility]. Updated facility via careport of discharge today and transport time of 430pm. EYELET ROW MARKER tasked to send discharge packet to facility. . Plan for patient to discharge today. Discharge order has been placed. Transportation arranged through [facility] by cot set for 4:30 pm. Notified RN and covering TCC of this. Will update patient at bedside. SW remains available if any other needs or concerns arise. Discharge med list transmitted to return back to [facility] per TCC request. Referral placed to return back to [facility] via [facility] per TCC request. Await review and response regarding ability to accept. TCC notified. Inpatient status from [facility] with abdominal pain. Admitted to F. ID consulted as patient was in ER 10 days ago with diagnosis of pyelonephritis. Started on po diflucan. Endocrinology consulted. BS ac and hs with coverage. BS was 29 on 08/17. BS 223 this am. Urine cultures on 08/08 positive for klebsiella(per ID note adequately treated with antimicrobial for last 10 days). Did require apresoline iv x 1 throughout the night.Did task EYELET ROW MARKER to send referral to [facility]. Discharge plan is to return to [facility] when medically stable... Problem: Pain Goal: My pain/discomfort is manageable Outcome: Progressing met Ice therapy offer/repositioning Problem: Safety Goal: Patient will be injury free during hospitalization Outcome: Progressing met Educate on using call light/ frequent rounding documented in this encounter [facility] 08-19-2023 History of Presen t illness Narrative Report called to Ana at [facility]. Department of Internal Medicine Division of Endocrinology, Diabetes, & Metabolism Endocrinology Note Patient Name: Will Jacinto : 1965 AGE: 57 y.o. Room[facility]: [facility] Admission Date: 08/17/2023 Visit Date: 08/19/2023 Reason for Endocrine Consult: DM2 Uncontrolled Provider/Team Requesting Consult: Dr. Hill PCP: Jared Guzman Outpt Ctc Operator: Yes [facility] endocrinology Last seen 02/09/2023, Next appointment 10/27/2023 ASSESSMENT: Type 2 diabetes mellitus with hyperglycemia with residential insulin use Leukocytosis Bipolar disorder Dm2 severe [...] units 3 times daily with meals Follow-up: [facility] endocrinology SUBJECTIVE/HPI: CHIEF COMPLAINT: Chief Complaint Patient [...] before lunch/285 units before dinner Lactobacillus Acid-Pectin (Acidophilus/Baldwin Pectin) tablet 1 tablet, Oral, 2 times [...] found for: CHOLHDLRATIO No results found for: [id number] Lab Results Component Value Date TSH 2.356 [...] 08/17/2023 [facility] 1965 [id number] Exam Date/Time: 08/17/2023 15:08 Procedure: CT ABDOMEN [...] side (HCC) Anxiety disorder Bipolar 1 disorder ([facility]) Blood circulation, collateral Cellulitis chronic L lower leg COVID 12/08/2021 Depression Diabetes mellitus ([facility]) Type II, on insulin Disease of blood and blood forming organ Endometrial carcinoma (HCC) 11/25/2020 Endometrial hyperplasia Foot ulcer ([facility]) Hx of blood clots RLE [...] ENDOSCOPY N/A 06/29/2023 Dr Sergio Sibley at [facility]; no specimens WISDOM TOOTH EXTRACTION Allergy(ies): No [...] from the original note were not included. [facility] - Infectious Diseases Attending [...] (!) 188/106 -- -- -- -- -- 08/18/231948 (!) 176/87 -- -- 90 -- -- 08/18/231935 -- (!) 35.9 C (96.7 F) Temporal [...] Labs: Recent Labs 08/17/23 1336 08/17/23 1758 08/18/230 08/19/23 0433 NA 132* -- 130* 130* K 4.8 -- 4.2 4.4 CL 99 -- 100 99 CO2 - BUN CREATININE 0.72 -- 0.76 1.00 GLUCOSE 71 [...] be of moderate complexity. Art Reddy MD, MACP, FIDSA Nutrition rescreen complete. Pt assigned a level one for nutrition care. Images from the original note were not included. PHYSICAL THERAPY [facility] Name/MRN: Maria Luisa Jacinto ([id number]) Date: 08/18/2023 PT evaluation orders received and chart review completed. Pt from nursing facility and lives there residential. 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 No acute PT needs identified. Rec return to [facility] with no PT. Mai Argueta PT Images from the original note were not included. Occupational Therapy OCCUPATIONAL THERAPY [facility] Name/MRN: Maria Luisa Jacinto ([id number]) Date: 08/18/2023 Therapy eval and treat orders [...] Scooter Wyatt OT documented in this encounter [facility] 08-19-2023 Note Formatting of this n ote might be different from the original. Spoke with patient. Agreeable to returning back to [facility]. Updated facility via careport of discharge today and transport time of 430pm. EYELET ROW MARKER tasked to send discharge packet to facility. . [facility] 08-19-2023 Note Formatting of this n ote might be different from the original. Spoke with patient. Agreeable to returning back to [facility]. Updated facility via careport of discharge today and transport time of 430pm. EYELET ROW MARKER tasked to send discharge packet to facility. . [facility] 08-19-2023 Note Formatting of this n ote might be different from the original. Plan for patient to discharge today. Discharge order has been placed. Transportation arranged through [facility] by cot set for 4:30 pm. Notified RN and covering TCC of this. Will update patient at bedside. SW remains available if any other needs or concerns arise. [facility] 08-19-2023 Note Formatting of this n ote might be different from the original. Plan for patient to discharge today. Discharge order has been placed. Transportation arranged through [facility] by cot set for 4:30 pm. Notified RN and covering TCC of this. Will update patient at bedside. SW remains available if any other needs or concerns arise. [facility] 08-19-2023 Note Formatting of this n ote might be different from the original. Discharge med list transmitted to return back to [facility] via [facility] per TCC request. [facility] 08-19-2023 Note Formatting of this n ote might be different from the original. Discharge med list transmitted to return back to [facility] via [facility] per TCC request. [facility] 08-19-2023 Hospital course Narrative Discharge Summary [...] think he can go back to snf today SIGNIFICANT DIAGNOSTIC STUDIES: Labs xray CONSULTANTS: ID RECOMMENDED NEXT STEPS: SNF DISCHARGE MEDICATIONS: Medication List START taking these medications clotrimazole 1 % cream Commonly known as: Lotrimin Apply topically 2 times daily. fluconazole 200 MG tablet Commonly known as: Diflucan Take 1 tablet (200 mg) by mouth daily for 12 doses. Start taking on: August 20, 2023 CONTINUE taking these medications Acidophilus/Baldwin Pectin tablet ARIPiprazole 10 MG tablet Commonly [...] Complexity: follow up within 7-14 calendar days (68525) [] Severe Complexity: follow up within 7 calendar days (30629) FOLLOW UP TESTING, PENDING RESULTS OR REFERRALS [...] 08/19/2023, 10:09 AM documented in this encounter [facility] 08-19-2023 Note Formatting of this n ote might be different from the original. Referral placed to return back to [facility] via [facility] per TCC request. Await review and response regarding ability to accept. TCC notified. [facility] 08-19-2023 Note Formatting of this n ote might be different from the original. Referral placed to return back to [facility] via [facility] per TCC request. Await review and response regarding ability to accept. TCC notified. [facility] 08-19-2023 Hospital Discharg e instructions Kota [...] Contact: QuesadaTammyh Relation: Relative Secondary Emergency Contact: Carola Lubin Mobile Relation: Other Past Surgical History: Past Surgical History: Procedure Laterality Date ABCESS DRAINAGE Right 09/09/2018 FOOT; [facility] COLONOSCOPY 09/19/[address] Hyde DILATION AND CURETTAGE OF UTERUS 05/18/2019 HYSTEROSCOPY 12/23/2021 LEG AMPUTATION THROUGH KNEE Right 06/16/2019 UPPER GASTROINTESTINAL ENDOSCOPY N/A 06/29/2023 Dr Sergio Sibley at [facility]; no specimens WISDOM TOOTH EXTRACTION Immunization History: [...] associated with type 2 diabetes mellitus (CMS/HCC) ([facility]) Esophagitis Nausea and vomiting Hyperlipidemia Cellulitis and abscess of lower extremity Chronic acquired lymphedema Cellulitis Hyperandrogenism Uncontrolled type 2 diabetes mellitus with complication Chronic osteomyelitis (CMS/HCC) ([facility]) 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 ([facility]) Class 3 severe obesity due to excess calories with serious comorbidity and body mass index (BMI) of 50.0 to 59.9 in adult ([facility]) Type 2 diabetes mellitus with hyperglycemia, with long-term current use of insulin ([facility]) Hyperglycemia Post-menopausal bleeding Morbid obesity ([facility]) Left leg cellulitis Diabetic foot infection S/P AKA (above knee amputation) unilateral, right ([facility]) Class 3 severe obesity due to excess calories with serious comorbidity and body mass index (BMI) of 60.0 to 69.9 in adult ([facility]) Isolation/Infection: No active isolations No [...] Total assistance Toileting Total assistance Feeding Independent Flask Maker Independent Med Delivery yes Wound Care Documentation [...] select all that are sent with patient): {CHRISTY Patient Belongings:[id number]} RN SIGNATURE: MANAGEMENT/SOCIAL WORK SECTION Inpatient Status Date: Readmission Risk Assessment Score: @READMISSIONRISKDETAILS@ Discharging to Facility/ Agency Name: [facility] Address:[address] [place] [address] Dialysis Facility (if applicable) Name: Address: Dialysis Schedule: Phone: Fax: Gusset Maker/Pipe Buffer signature: ICIAN SECTION Prognosis: fair Condition at Discharge: stable Rehab Potential (if transferring to Rehab): fair Recommended Labs or Other Treatments After Discharge: Physician Certification: I certify the above information and transfer of Will Jacinto is necessary for the continuing treatment of the diagnosis listed and that he requires long-term facility for greater than 30 days. Update Admission H&P: No change in H&P PHYSICIAN SIGNATURE: documented in this encounter [facility] 08-19-2023 Note Formatting of this n ote might be different from the original. Inpatient status from [facility] with abdominal pain. Admitted to [facility]. ID consulted as patient was in [...] iv x 1 throughout the night.Did task EYELET ROW MARKER to send referral to [facility]. Discharge plan is to return to [facility] when medically stable... [facility] 08-19-2023 Note Formatting of this n ote might be different from the original. Inpatient status from [facility] with abdominal pain. Admitted to [facility]. ID consulted as patient was in [...] iv x 1 throughout the night.Did task EYELET ROW MARKER to send referral to [facility]. Discharge plan is to return to [facility] when medically stable... [facility] 08-18-2023 Plan of care note Problem: Pain Goal: My pain/discomfort is manageable Outcome: Progressing met Ice therapy offer/repositioning Problem: Safety Goal: Patient will be injury free during hospitalization Outcome: Progressing met Educate on using call light/ frequent rounding [facility] 08-18-2023 Emergency department Note Endocrinology pagekristina, have tried to contact multiple times in regards to Insulin order w/o response. Flor Alonso RN 08/18/23 1214 [facility] 08-18-2023 Emergency department Note Endocrinology melodie, [...] otherwise acutely negative except as in the [place]. 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) Acquired absence of other toe(s), unspecified side (HCC) Anxiety disorder Bipolar 1 disorder ([facility]) Blood circulation, collateral Cellulitis chronic L lower leg COVID 12/08/2021 Depression Diabetes mellitus ([facility]) Type II, on insulin Disease [...] soft tissue disorders Other symbolic dysfunctions Schizophrenia ([facility]) Sleep apnea no CPAP Venous insufficiency SURGICAL HISTORY Past Surgical History: Procedure Laterality Date ABCESS DRAINAGE Right 09/09/2018 FOOT; [facility] COLONOSCOPY 09/19/[address] Hyde DILATION AND CURETTAGE OF UTERUS 05/18/2019 HYSTEROSCOPY 12/23/2021 LEG AMPUTATION THROUGH KNEE Right 06/16/2019 UPPER GASTROINTESTINAL ENDOSCOPY N/A 06/29/2023 Dr Sergio Sibley at [facility]; no specimens WISDOM TOOTH EXTRACTION CURRENT MEDICATIONS [...] Phys[facility] RAD[facility]Y (Per Emergency Physician): Interpretation per the [...] Culture. Procedure Abnormality Status --------- ------ Complete Urinalysis[[id number]] Please view results for these tests on [...] medicine further management Brandon Leblanc DO 08/17/23 2042 Arrived via ems from snf, co ABD [...] PHYSICIANS Lisa Curtis RN 08/17/23 1215 Bed: Expected date: Expected time: Means of arrival: Comments: Main 2 Dalila Mendes RN 08/17/232045 documented in this encounter [facility] 08-18-2023 Consult note Associated Order (s): IP CONSULT TO ENDOCRINOLOGY Department of Internal Medicine Division of Endocrinology, Diabetes, & Metabolism Endocrinology Note Patient Name: Will Jacinto : 1965 AGE: 57 y.o. Room/Bed: 06/15 Admission Date: 08/17/2023 Visit Date: 08/18/2023 Reason for Endocrine Consult: DM2 Uncontrolled Provider/Team Requesting Consult: Dr. Hill PCP: Jared Guzman Outpt Ctc Operator: Yes [facility] endocrinology Last seen 02/09/2023, Next appointment 10/27/2023 ASSESSMENT: Type 2 diabetes mellitus with hyperglycemia with residential insulin use Leukocytosis Bipolar disorder Dm2 severe [...] times daily with meals Outpt Follow Up-- [facility] endocrinology SUBJECTIVE/HPI: CHIEF COMPLAINT: Chief Complaint Patient [...] before lunch/285 units before dinner Lactobacillus Acid-Pectin (Acidophilus/Baldwin Pectin) tablet 1 tablet, Oral, 2 times [...] found for: CHOLHDLRATIO No results found for: [id number] Lab Results Component Value Date TSH 2.356 [...] 08/17/2023 Patient Name: WILL JACINTO : [address] [facility]#: [id number] Exam Date/Time: 08/17/2023 15:08 Procedure: CT ABDOMEN [...] lower leg COVID 12/08/2021 Depression Diabetes mellitus ([facility]) Type II, on insulin Disease [...] ENDOSCOPY N/A 06/29/2023 Dr Sergio Sibley at [facility]; no specimens WISDOM TOOTH EXTRACTION Allergy(ies): No [...] state/prognosis on the date of this note. [facility] 08-18-2023 Consult note Associated Order (s): IP CONSULT TO ENDOCRINOLOGY Department of Internal Medicine Division of Endocrinology, Diabetes, & Metabolism Endocrinology Note Patient Name: Will Jacinto : 1965 AGE: 57 y.o. Room/Bed: 06/15 Admission Date: 08/17/2023 Visit Date: 08/18/2023 Reason for Endocrine Consult: DM2 Uncontrolled Provider/Team Requesting Consult: Dr. Hill PCP: Jared Guzman Outpt Ctc Operator: Yes [facility] endocrinology Last seen 02/09/2023, Next appointment 10/27/2023 ASSESSMENT: Type 2 diabetes mellitus with hyperglycemia with residential insulin use Leukocytosis Bipolar disorder Dm2 severe [...] times daily with meals Outpt Follow Up-- [facility] endocrinology SUBJECTIVE/HPI: CHIEF COMPLAINT: Chief Complaint [...] before lunch/285 units before dinner Lactobacillus Acid-Pectin (Acidophilus/Baldwin Pectin) tablet 1 tablet, Oral, 2 times [...] found for: CHOLHDLRATIO No results found for: [id number] Lab Results Component Value Date TSH 2.356 [...] 08/17/2023 Patient Name: WILL JACINTO : [address] [facility]#: [id number] Exam Date/Time: 08/17/2023 15:08 Procedure: CT ABDOMEN [...] lower leg COVID 12/08/2021 Depression Diabetes mellitus ([facility]) Type II, on insulin Disease of blood and blood forming organ Endometrial carcinoma ([facility]) 11/25/2020 Endometrial hyperplasia Foot ulcer ([facility]) Hx of blood clots RLE prior to amputation Hyperlipidemia Hypertension Lymphedema 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, RLE Morbidly obese (HCC) Muscle weakness Osteomyelitis (HCC) Osteomyelitis (HCC) 2019 RLE Other lack of coordination Other specified soft tissue disorders Other symbolic dysfunctions Schizophrenia ([facility]) Sleep apnea no CPAP Venous insufficiency Past Surgical History: Past Surgical History: Procedure Laterality Date ABCESS DRAINAGE Right 09/09/2018 FOOT; [facility] COLONOSCOPY 09/19/[address] Hyde DILATION AND CURETTAGE OF UTERUS 05/18/2019 HYSTEROSCOPY 12/23/2021 LEG AMPUTATION THROUGH KNEE Right 06/16/2019 UPPER GASTROINTESTINAL ENDOSCOPY N/A 06/29/2023 Dr Sergio Sibley at [facility]; no specimens WISDOM TOOTH EXTRACTION Allergy(ies): No [...] from the original note were not included. [facility] - Infectious Diseases Attending Consult Note Reason for Consult: Complicated UTI History of Present Illness: Patient is 57 year old admitted to [facility] with abdominal discomfort N/V. Patient was in [...] side (HCC) Anxiety disorder Bipolar 1 disorder ([facility]) Blood circulation, collateral Cellulitis chronic L lower leg COVID 12/08/2021 Depression Diabetes mellitus ([facility]) Type II, on insulin Disease of blood and blood forming organ Endometrial carcinoma ([facility]) 11/25/2020 Endometrial hyperplasia Foot ulcer ([facility]) Hx of blood clots RLE prior to amputation Hyperlipidemia Hypertension Lymphedema 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, RLE Morbidly obese ([facility]) Muscle weakness Osteomyelitis (HCC) Osteomyelitis (HCC) 2019 RLE Other lack of coordination Other specified soft tissue disorders Other symbolic dysfunctions Schizophrenia ([facility]) Sleep apnea no CPAP Venous insufficiency Past Surgical History: Past Surgical History: Procedure Laterality Date ABCESS DRAINAGE Right 09/09/2018 FOOT; [facility] COLONOSCOPY 09/19/[address] Hyde DILATION AND CURETTAGE OF UTERUS 05/18/2019 HYSTEROSCOPY 12/23/2021 LEG AMPUTATION THROUGH KNEE Right 06/16/2019 UPPER GASTROINTESTINAL ENDOSCOPY N/A 06/29/2023 Dr Sergio Sibley at [facility]; no specimens WISDOM TOOTH EXTRACTION Current Medications: [...] M Esterle, DO 10 mg at 08/18/23827 aspirin EC tablet 81 mg 81 mg Oral Daily Nabil M Esterle, DO 81 mg at 08/18/23827 atorvastatin (Lipitor) tablet 10 mg 10 mg Oral Daily Nabil M Esterle, DO 10 mg at 08/18/23827 cefTRIAXone (Rocephin) 1,000 mg in sodium chloride 0.9 % 50 mL IVPB Mini-Bag Plus 1,000 mg IntraVENous q24h Nabil M Esterle, DO dextrose 5 % infusion 100 mL/hr IntraVENous PRN Brandon Leblanc, DO dextrose 50 % solution 12.5 g 12.5 g IntraVENous PRN Brandon Leblanc, DO 12.5 g at 08/17/231808 dilTIAZem CD (Cardizem CD) 24 hr capsule [...] g 15 g Oral PRN Brandon Leblanc, influenza vac subunit quadrivalent (Flucelvax) injection 0.5 [...] before lunch/285 units before dinner Lactobacillus Acid-Pectin (Acidophilus/Baldwin Pectin) tablet Take 1 tablet by mouth [...] accounting for open encounter. Art Reddy MD, [facility], [facility] documented in this encounter [facility] 08-18-2023 History and physical note Department [...] ENDOSCOPY N/A 06/29/2023 Dr Sergio Sibley at [facility]; no specimens WISDOM TOOTH EXTRACTION Medications Prior [...] (BMI) of 50.0 to 59.9 in adult ([facility]) Type 2 diabetes mellitus with hyperglycemia, with long-term current use of insulin ([facility]) Hyperglycemia Post-menopausal bleeding Morbid obesity ([facility]) Left leg cellulitis Diabetic foot infection S/P AKA (above knee amputation) unilateral, right ([facility]) Class 3 severe obesity due to excess calories with serious comorbidity and body mass index (BMI) of 60.0 to 69.9 in adult ([facility]) Chest pain Chest pain, unspecified type Upper abdominal pain Intertriginous homa Abd pain DM 2 HTN HPL Plan Obs admit Hopefully back to snf tomorrow NABIL HILL DO 08/18/23 10:00 AM [facility] 08-18-2023 History and physical note Department [...] Above knee amputation of right lower extremity ([facility]) Acquired absence of other toe(s), unspecified side ([facility]) Anxiety disorder Bipolar 1 disorder ([facility]) Blood circulation, collateral Cellulitis chronic [...] ENDOSCOPY N/A 06/29/2023 Dr Sergio Sibley at [facility]; no specimens WISDOM TOOTH EXTRACTION Medications Prior [...] 08/18/23 10:00 AM documented in this encounter [facility] 08-18-2023 Consult note Associated Order (s): IP CONSULT TO INFECTIOUS DISEASES Images from the original note were not included. [facility] - Infectious Diseases Attending Consult Note Reason for Consult: Complicated UTI History of Present Illness: Patient is 57 year old admitted to [facility] with abdominal discomfort N/V. Patient was in [...] side (HCC) Anxiety disorder Bipolar 1 disorder ([facility]) Blood circulation, collateral Cellulitis chronic L lower leg COVID 12/08/2021 Depression Diabetes mellitus ([facility]) Type II, on insulin Disease of blood and blood forming organ Endometrial carcinoma ([facility]) 11/25/2020 Endometrial hyperplasia Foot ulcer (HCC) Hx of blood clots RLE prior to amputation Hyperlipidemia Hypertension Lymphedema 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, RLE Morbidly obese ([facility]) Muscle weakness Osteomyelitis (HCC) Osteomyelitis (HCC) 2019 RLE Other lack of coordination Other specified soft tissue disorders Other symbolic dysfunctions Schizophrenia ([facility]) Sleep apnea no CPAP Venous insufficiency Past Surgical History: Past Surgical History: Procedure Laterality Date ABCESS DRAINAGE Right 09/09/2018 FOOT; [facility] COLONOSCOPY 09/19/[address] Hyde DILATION AND CURETTAGE OF UTERUS 05/18/2019 HYSTEROSCOPY 12/23/2021 LEG AMPUTATION THROUGH KNEE Right 06/16/2019 UPPER GASTROINTESTINAL ENDOSCOPY N/A 06/29/2023 Dr Sergio Sibley at [facility]; no specimens WISDOM TOOTH EXTRACTION Current Medications: [...] PRN Brandon Leblanc, DO 12.5 g at [address] dilTIAZem CD (Cardizem CD) 24 hr capsule [...] M Esterle, DO 40 mg at 08/18/23827 megestrol (Megace) tablet 20 mg 20 mg [...] g 17 g Oral Daily PRN Nabil Mane Hill, DO potassium chloride CR (Klor-Con M20) ER tablet 20 mEq 20 mEq Oral q24h Nabil Mane Hill, DO 20 mEq at 08/17/23 2330 Current [...] before lunch/285 units before dinner Lactobacillus Acid-Pectin (Acidophilus/Baldwin Pectin) tablet Take 1 tablet by mouth [...] accounting for open encounter. Art Reddy MD, [facility], [facility] 08-17-2023 Emergency department Note Bed: 27 Expected date: Expected time: Means of arrival: Comments: PHYSICIANS Lisa Curtis RN 08/17/23 1215 [facility] 08-17-2023 Emergency department Note Bed: 08 Expected date: Expected time: Means of arrival: Comments: Main 2 Dalila Mendes RN 08/17/232045 [facility] 08-17-2023 Emergency department Triage note Arrived [...] within reach, continue with plan of care [facility] 08-17-2023 Physician Emergency department Note EMERGENCY [...] otherwise acutely negative except as in the [place]. PAST MEDICAL HISTORY Past Medical History: Diagnosis [...] ENDOSCOPY N/A 06/29/2023 Dr Sergio Sibley at [facility]; no specimens WISDOM TOOTH EXTRACTION CURRENT MEDICATIONS [...] Culture. Procedure Abnormality Status --------- ------ Complete Urinalysis[[id number]] Please view results for these tests on [...] Medicine Provider Aaron Burgos DO 08/17/23 1528 [facility] 08-17-2023 Physician Emergency department Note Pt [...] medicine further management Brandon Leblanc DO 08/17/23 2245 [facility] 08-12-2023 Telephone encounter Note Faxed over recommendation. Thank you! [facility] 08-12-2023 Miscellaneous Notes Faxed over recommendation. Thank you! Please keep doses the same thank you Images from the original note were not included. Patient BGL documented in this encounter [facility] 08-12-2023 Telephone encounter Note Please keep doses the same thank you [employer] Work Phone: 08-11-2023 Telephone encounter Note Images from the original note were not included. 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 Navigator will continue to follow and assist with follow up as needed after appt 08/13. [employer] 08-09-2023 Miscellaneous Notes Pt rescheduled appt with [...] Guzman office. Received call from someone at [phone] stating they got a call to this [...] finding.Await comparison report. documented in this encounter [facility] 08-08-2023 Emergency department Note Physicians A.S.arrived and report given. Patient returned to SNF. SNF was informed. Karlos Garcia RN 08/08/23 1448 Karlos Garcia RN 08/08/23 1449 [facility] 08-08-2023 Emergency department Note Physicians A.[facility]arrived and report given. Patient returned to SNF. SNF was informed. Karlos Garcia RN 08/08/23 1448 Karlos Garcia RN 08/08/23 1449 Karlos Garcia RN 08/08/23 1123 Karlos Garcia RN 08/08/233 Bed: 17 Expected date: Expected time: Means of arrival: Comments: Nalini Mendes RN 08/08/23 0632 documented in this encounter [facility] 08-08-2023 Emergency department Note Karlos Garcia RN 08/08/231122 Karlos Garcia RN 08/08/231122 [facility] 08-08-2023 Emergency department Note Bed: 17 Expected date: Expected time: Means of arrival: Comments: Nalini Mendes RN 08/08/23 0632 [facility] 07-23-2023 Telephone encounter Note Pt to see Herber Ramos in [facility] 07/30/23 [facility] 07-23-2023 Miscellaneous Notes Pt to see Herber Ramos in [facility] 07/30/[address] Guzman office, pt does not have any scheduled fu. Provided new phone number for patient. Added to chart. Faxed report and contact info for navigator to Jared abarca. Received call from someone at [phone] stating they got a call to this [...] finding.Await comparison report. documented in this encounter [facility] 07-20-2023 Telephone encounter Note Contacted Dr. Guzman office, pt does not have any scheduled fu. Provided new phone number for patient. Added to chart. [facility] 07-20-2023 Telephone encounter Note Faxed report and contact info for navigator to Jared Guzman office. [facility] 07-20-2023 Telephone encounter Note Received call from someone at [phone] stating they got a call to this number and this is a work phone. Patient and person identified via phone do not match. Will not attempt phone number again. EC contact attempted but no answer. [facility] 07-15-2023 Telephone encounter Note Lm requesting a return phone call to discuss finding [facility] 07-05-2023 Telephone encounter Note Patient appeared on ED Nuance search after CTA chest 06-28-2023 noted a 7 mm right middle lobe lung nodule. Imaging was completed for chest pain and history of DVT. Outside facility imaging on 11-22-2020 noted a right middle lobe 3 mm nodule. Requested outside facility imaging for comparison to determine whether this is an enlarging finding.Await comparison report. [facility] 07-01-2023 Note Formatting of this n ote might be different from the original. Return to [facility] this afternoon at 1:00. [facility] messaged the facility with the dc time. [facility] ambulance to transport. Ambulance transport form completed. [facility] 07-01-2023 Note Formatting of this n ote might be different from the original. Return to [facility] this afternoon at 1:00. [facility] messaged the facility with the dc time. [facility] ambulance to transport. Ambulance transport form completed. [facility] 07-01-2023 Miscellaneous Notes Return to [facility] this afternoon at 1:00. [facility] messaged the facility with the dc time. [facility] to transport. Ambulance transport form completed. Discharge med list transmitted to [facility] via [employer] per [facility] request. Patient Choice Patient Name: WILL JACINTO Date of : 1965 All Providers Sent Referral Name: [facility] Phone: [phone] Address: [address] [place] [address] Images from the original note were not included. Care Management Progress Note Pt has discharge order placed. Tasked EYELET ROW MARKER to send discharge paperwork to [facility]. Notified DIRECTOR MEDICAL SURGICAL to arrange transportation. Facility notified pt to return today. Discharge Milestones and Delays Expected Date/Time: 07/01/2023 Midday Disposition: Assisted Facility Transport status: No current request Discharge [...] ACS. Endocrine following. Pt to return to [facility] at discharge. Discharge Milestones and Delays Expected [...] Note Chart reviewed. Patient remains on 2 with chest pain. HX transgender F-M, Schizophrenia, Bipolar. R BKA, is wheelchair bound. Cardiology and GI following. Plan for EGD today. Wheelchair bound. DC plan: [facility], bed hold. No authorization needed. Discharge Milestones and Delays Expected Date/Time: 06/30/[address] discharge order Complete med reconciliation Case mgmt discharge readiness Clinical Stability Diagnsotic Workup Expected Discharge History Expected Date/Time Set By Reviewed At 06/30/2023 Nabil Hill, 06/28/2023 8:48 AM 06/29/2023 Herber Armando RN 06/28/2023 7:51 AM 06/29/2023 Rosaura Mustafa DO 06/28/2023 6:19 AM 06/29/2023 Rosaura Mustafa DO 06/28/2023 5:11 AM Length of Stay (Days): 1 GMLOS: 1.7 Report called to Herber Hawk POST ENDOSCOPY PROCEDURE TRANSFER REPORT Procedure completed: EGD Findings: WDL Specimens obtained: None Medications administered: 200mg Propofol per DIRECTOR DIGITAL STRATEGY Additional Info: Adult diet regular; 3 carb choices (45gm/meal); see Dr Sibley' orders For additional Questions please call Endoscopy at [phone]. Thank You! Dr [facility]ible[facility] Will Jacinto Procedure Date: 06/29/2023 8:19 AM Gender: Female Date of : 1965 Age: 57 Admit Type: Inpatient Note Status: Finalized Endoscopist: Sergio Sibley DO, [id number] Procedure: Upper GI endoscopy Indications: Chest pain [...] immediate complications. Procedure Code(s): --- Professional --- 31520, Esophagogastroduodenoscopy, flexible, transoral; diagnostic, including collection of specimen(s) by brushing or washing, when performed (separate procedure) --- Technical --- 11493, Esophagogastroduodenoscopy, flexible, transoral; diagnostic, including collection of specimen(s) by brushing or washing, when performed (separate procedure) Diagnosis Code(s): --- Professional --- R07.89, Other chest pain R11.2, Nausea with vomiting, unspecified --- Technical --- R07.89, Other chest pain R11.2, Nausea with vomiting, unspecified CPT copyright 2021 [employer]. All rights reserved. The codes documented in this report are preliminary and upon assignment desk assistant review may be revised to meet current [...] Limits Permission given to speak with patient customer service representative teacher/caregiver as indicated: Yes (Jovana Quesada ([facility]) [phone]) Confirmation of Payer with patient/family: Yes Payer Name: [facility] [place]: No Confirmation of Primary Care Physician: Confirmed PCP Name: Jared Guzman Seen in last 2 years?: Yes Primary Caregiver: Other (Comment) ([facility] staff) If assistance needed, confirmed caregiver ready, willing and able to care for patient at discharge: Yes Confirmed with: Patient states staff from [facility] Living Arrangements Current Residence: ([facility]) Number of Floors Number of Entry Steps: Bed/Bath Levels: Facility: [facility] Facility Name: [facility] Plan to Return: Yes Lives with: Support Systems: Family members Activities of Daily Living Ambulation: Total Care (wheelchair) Bathing/Dressing: Total Care Elimination/Continence/Toileting : Assistance Feeding: Independent Who Assists with Activities of Daily Living: Staff from [facility] Instrumental Activities of Daily Living Prescription Coverage: Yes Pharmacy Used: Pharmacy through [facility] Medication Management: Assistance Type: Dose packaging system Who assists with medication securing and setup?: [facility] staff Transportation/Shopping: Assistance Provider Transportation Mode: Needs Assistance with Transportation at Discharge: No Meal Preparation: Assistance Provider Meal Prep Assistance Provider Name: [facility] staff Laundry/Cleaning: Assistance Provider Laundry/Cleaning Assistance Provider Name: [facility] staff Finances/Bill Paying: Assistance Provider Finances/Bill Payer Assistance Provider Name: Family Communication: Independent Types of Care Services/Equipment Utilized Care Services: Dialysis Type: NA Durable Medical Equipment: Wheelchair (standard or power) Patient's Goal/Discharge Plan Patient expects to be discharged to: Back to [facility]. Discharge Planning Actions: Continue to follow Patient's [...] R bka, is wheelchair bound. Lives at [facility] and plans to return. Cardiology consulted. Task sent to [facility] to [facility]. [facility] will continue to follow. Herber Armando RN Patient was referred to the [facility] service for admission but his primary care physician is covered by Dr. Hill. Dr. Hill will see and admit. Attending changed to Dr. Hill. documented in this encounter [facility] 07-01-2023 Note Formatting of this n ote might be different from the original. Discharge med list transmitted to [facility] via [facility] per [facility] request. [facility] 07-01-2023 Note Formatting of this n ote might be different from the original. Discharge med list transmitted to [facility] via [facility] per [facility] request. [facility] 07-01-2023 Hospital course Narrative Discharge Summary [...] improve. [facility] SIGNIFICANT DIAGNOSTIC STUDIES: EGD xrays labs CONSULTANTS: Cardio and GI RECOMMENDED NEXT STEPS: none DISCHARGE MEDICATIONS: Medication List CONTINUE taking these medications Acidophilus/Baldwin Pectin tablet ARIPiprazole 10 MG tablet Commonly [...] Complexity: follow up within 7-14 calendar days (35332) [] Severe Complexity: follow up within 7 calendar days (72810) FOLLOW UP TESTING, PENDING RESULTS OR REFERRALS AT TRANSITIONAL CARE VISIT: [] Yes [] No PENDING STUDIES: none DISPOSITION: Skilled Facility FACILITY[facility]HOME CARE AGENCY [facility] Follow up with Sergio Sibley DO [address] [facility] [address] Follow up As needed INSTRUCTIONS TO MA/SW: [...] 07/01/2023, 8:48 AM documented in this encounter [facility] 07-01-2023 Note Formatting of this n ote might be different from the original. Patient Choice Patient Name: WILL JACINTO Date of : 1965 All Providers Sent Referral Name: [employer] [facility] Phone: [phone] Address: [place] [address] [facility] 07-01-2023 Note Formatting of this n ote might be different from the original. Patient Choice Patient Name: WILL JACINTO Date of : 1965 All Providers Sent Referral Name: [employer] [facility] Phone: [phone] Address: [address] [place] [address] [address] [facility] 07-01-2023 Note Formatting of this n ote is different from the original. Images from the original note were not included. Care Management Progress Note Pt has discharge order placed. Tasked EYELET ROW MARKER to send discharge paperwork to [facility]. Notified DIRECTOR MEDICAL SURGICAL to arrange transportation. Facility notified pt to return today. Discharge Milestones and Delays Expected Date/Time: 07/01/2023 Midday Disposition: Assisted Facility Transport status: No current request Discharge Milestones Completed Place discharge order Complete med reconciliation Case mgmt discharge readiness Expected Discharge History Expected Date/Time Set By Reviewed At 07/01/2023 Midday Nabil Hill, DO 06/30/2023 7:25 PM 06/30/2023 Nabil Hill, DO 06/28/2023 8:48 AM 06/29/2023 Herber Armando RN 06/28/2023 7:51 AM 06/29/2023 Rosaura Mustafa, DO 06/28/2023 6:19 AM 06/29/2023 Rosaura Mustafa DO 06/28/2023 5:11 AM Length of Stay (Days): 3 GMLOS: 1.7 [facility] 07-01-2023 Note Formatting of this n ote is different from the original. Images from the original note were not included. Care Management Progress Note Pt has discharge order placed. Tasked EYELET ROW MARKER to send discharge paperwork to [facility]. Notified DIRECTOR MEDICAL SURGICAL to arrange transportation. Facility notified pt to return today. Discharge Milestones and Delays Expected Date/Time: 07/01/2023 Midday Disposition: Assisted Facility Transport status: No current request Discharge [...] Length of Stay (Days): 3 GMLOS: 1.7 [facility] 06-30-2023 Hospital Discharg e instructions David Lui RN - 06/30/2023 7:25 PM EDT Continuity of Care Form Patient Name: Will Jacinto : 1965 Admit date: 06/28/2023 Discharge date: 07/01/23 Code Status Order: Full Code Advance Directives: N Admitting Physician: Nabil Hill DO PCP: Jared Guzman Discharging Nurse: Janina Discharging Hospital Unit/Room#: B2-257/B2-257 A Discharging Unit Phone Number: [phone] Emergency Contact: Extended Emergency Contact Information Primary Emergency Contact: SangitaJovana Relation: Relative Secondary Emergency Contact: TristianCarola Mobile Relation: Other Past Surgical History: Past Surgical History: Procedure Laterality Date ABCESS DRAINAGE Right 09/09/2018 FOOT; [facility] COLONOSCOPY 09/19/[address] Hyde DILATION AND CURETTAGE OF UTERUS 05/18/2019 HYSTEROSCOPY 12/23/2021 LEG AMPUTATION THROUGH KNEE Right 06/16/2019 UPPER GASTROINTESTINAL ENDOSCOPY N/A 06/29/2023 Dr Sergio Sibley at [facility]; no specimens WISDOM TOOTH EXTRACTION Immunization History: [...] gastroparesis associated with type 2 diabetes mellitus ([facility]/HCC) ([facility]) Esophagitis Nausea and vomiting Hyperlipidemia Cellulitis and abscess of lower extremity Chronic acquired lymphedema Cellulitis Hyperandrogenism Uncontrolled type 2 diabetes mellitus with complication Chronic osteomyelitis ([facility]/HCC) ([facility]) 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 ([facility]) Class 3 severe obesity due to excess calories with serious comorbidity and body mass index (BMI) of 50.0 to 59.9 in adult ([facility]) Type 2 diabetes mellitus with hyperglycemia, with long-term current use of insulin ([facility]) ([facility]) Hyperglycemia Post-menopausal bleeding Morbid obesity ([facility]) Left leg cellulitis Diabetic foot infection ([facility]) S/P AKA (above knee amputation) unilateral, right ([facility]) Class 3 severe obesity due to excess calories with serious comorbidity and body mass index (BMI) of 60.0 to 69.9 in adult ([facility]) Isolation/Infection: Contact CRE Nurse Assessment: [...] Total assistance Toileting Total assistance Feeding Independent Flask Maker Independent Med Delivery yes Wound Care Documentation [...] Score: @[email or web address]@ Discharging to Facility/ Agency Name: Lindsay Frias Address: [address] [place] [address] Fax: Dialysis Facility (if applicable) Name: Address: Dialysis Schedule: Phone: Fax: [employer]set [employer]/Pipe Buffer signature: ICIAN SECTION Prognosis: fair Condition at Discharge: stable Rehab Potential (if transferring to Rehab): fair Recommended Labs or Other Treatments After Discharge: none Physician Certification: I certify the above information and transfer of Will Jacinto is necessary for the continuing treatment of the diagnosis listed and that he requires long-term facility for greater than 30 days. Update Admission H&P: No change in H&P PHYSICIAN SIGNATURE: documented in this encounter [facility] 06-30-2023 Note Formatting of this n ote is different from the original. Images from the original note were not included. Care Management Progress Note Pt remains on 2E due to chest pain. S/P EGD 06/29-GI following.Cardiology- no evidence of ACS. Endocrine following. Pt to return to [facility] at discharge. Discharge Milestones and Delays Expected [...] Length of Stay (Days): 2 GMLOS: 1.7 [facility] 06-30-2023 Note Formatting of this n ote is different from the original. Images from the original note were not included. Care Management Progress Note Pt remains on 2E due to chest pain. S/P EGD 06/29-GI following.Cardiology- no evidence of ACS. Endocrine following. Pt to return to [facility] at discharge. Discharge Milestones and Delays Expected Date/Time: 06/30/[address] discharge order Complete med reconciliation Case mgmt discharge readiness Clinical Stability Diagnsotic Workup Expected Discharge History Expected Date/Time Set By Reviewed At 06/30/2023 Nabil Hill, DO 06/28/2023 8:48 AM 06/29/2023 Herber Armando RN 06/28/2023 7:51 AM 06/29/2023 Rosaura Mustafa DO 06/28/2023 6:19 AM 06/29/2023 Rosaura Mustafa, DO 06/28/2023 5:11 AM Length of Stay (Days): 2 GMLOS: 1.7 [employer] [facility] 06-30-2023 History of Presen t illness Narrative [...] Jacinto : 1965 AGE: 57 y.o. [facility] Admission Date: 06/28/2023 Visit Date: 06/30/2023 Reason for Endocrine Consult: dm2 Provider/Team Requesting Consult: Dr. Hill PCP: Jared Guzman Outpt Ctc Operator: Dr. Lee [facility] endo ASSESSMENT: DM 2 poor control Cheat [...] systems reviewed and are negative. OBJECTIVE: Vitals: 06/29/23201806/30/23 0600 06/30/23 0742 06/30/23 0859 BP: (!) [...] before lunch/285 units before dinner Lactobacillus Acid-Pectin (Acidophilus/Baldwin Pectin) tablet 1 tablet, Oral, 2 times [...] found for: CHOLHDLRATIO No results found for: [id number] Lab Results Component Value Date TSH 2.356 11/26/2020 Radiology reportsas per the Radiologist Radiology: ECG 12 lead Result Date: 06/28/2023 Sinus tachycardia Nonspecific IVCD with LAD Left ventricular hypertrophy Minimal ST elevation, anterolateral leads Electronically Signed On 06-28-2023 5:20:13 [address]T by Rosaura Must[address] CT chest angiogram w and/or wo IV contrast Result Date: 06/28/2023 [facility] 1965 [id number] Exam Date/Time: 06/28/2023 03:49 Procedure: CT CHEST [...] prior studies for comparison. Per the 2017 [employer] guidelines for incidentally discovered solitary pulmonary [...] ENDOSCOPY N/A 06/29/2023 Dr Sergio Sibley at [facility]; no specimens WISDOM TOOTH EXTRACTION Allergy(ies): No [...] Jacinto : 1965 AGE: 57 y.o. Room/Bed: [facility]/[address] Admission Date: 06/28/2023 Visit Date: 06/29/2023 Reason for Endocrine Consult: dm2 Provider/Team Requesting Consult: Dr. Hill PCP: Jared Guzman Outpt Ctc Operator: Dr. Jesus spear endo ASSESSMENT: DM 2 [...] doses to be determined Outpt Follow Up-- [place] endo Dr. Lee SUBJECTIVE/HPI: CHIEF COMPLAINT: Chief [...] before lunch/285 units before dinner Lactobacillus Acid-Pectin (Acidophilus/Baldwin Pectin) tablet 1 tablet, Oral, 2 times [...] found for: CHOLHDLRATIO No results found for: [id number] Lab Results Component Value Date TSH 2.356 11/26/2020 Radiology reportsas per the Radiologist Radiology: ECG 12 lead Result Date: 06/28/2023 Sinus tachycardia Nonspecific IVCD with LAD Left ventricular hypertrophy Minimal ST elevation, anterolateral leads Electronically Signed On 06-28-2023 5:20:13 [address]T [address] Rosaura Mustafa CT chest angiogram w and/or wo IV contrast Result Date: 06/28/2023 Patient Name: WILL [facility]AC[facility]TO [facility] 1965 [id number] Exam Date/Time: 06/28/2023 03:49 Procedure: CT CHEST [...] 06/28/2023 Patient Name: WILL JACINTO : [address] 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, RLE Morbidly obese ([facility]) Muscle weakness Osteomyelitis (HCC) Osteomyelitis (HCC) 2019 RLE Other lack of coordination Other specified soft tissue disorders Other symbolic dysfunctions Schizophrenia ([facility]) Sleep apnea no CPAP Venous insufficiency Past Surgical History: Past Surgical History: Procedure Laterality Date ABCESS DRAINAGE Right 09/09/2018 FOOT; [facility] COLONOSCOPY 09/19/[address] Hyde DILATION AND CURETTAGE OF UTERUS 05/18/2019 HYSTEROSCOPY 12/23/2021 LEG AMPUTATION THROUGH KNEE Right 06/16/2019 UPPER GASTROINTESTINAL ENDOSCOPY N/A 06/29/2023 Dr Sergio Sibley at [facility]; no specimens WISDOM TOOTH EXTRACTION Allergy(ies): No [...] Date - 2 d - Location - Skilled Facility - Pending the following - NABIL HILL DO 06/29/23 9:10 AM documented in this encounter [facility] rocket staff 06-30-2023 Note Sinus rhythm Abnormal R-wave progression, [...] include implement nonpharmacological interventions to manage anxiety. [facility] 06-29-2023 Note Formatting of this n ote is different from the original. Images from the original note were not included. Care Management Progress Note Chart reviewed. Patient remains on with chest pain. HX transgender F-M, Schizophrenia, Bipolar. R BKA, is wheelchair bound. Cardiology and GI following. Plan for EGD today. Wheelchair bound. DC plan: [facility], bed hold. No authorization needed. Discharge Milestones [...] Length of Stay (Days): 1 GMLOS: 1.7 [facility] 06-29-2023 Note Formatting of this n ote is different from the original. Images from the original note were not included. Care Management Progress Note Chart reviewed. Patient remains on 2 east with chest pain. HX transgender F-M, Schizophrenia, Bipolar. R BKA, is wheelchair bound. Cardiology and GI following. Plan for EGD today. Wheelchair bound. DC plan: [facility], bed hold. No authorization needed. Discharge Milestones [...] Length of Stay (Days): 1 GMLOS: 1.7 [facility] rocket staff 06-29-2023 Procedure anesthe ben Narrative Procedure Name [...] IV Placement Date: 06/09 11/30; Placement Time: 249; Catheter Size: 20 G; Orientation: Anterior, Right; Location: Forearm; Site Prep: Chlorhexidine ; Local Anesth: None 06/28/23 0250 by Melissa Sosa RN documented in this encounter [facility] [id number] Note* Perioperative Nursing Note - Usman Ulrich RN - 06/29/2023 10:54 AM EDT Report called to [facility] [place] [id number] Note* Perioperative Nursing Note - Usman Ulrich RN - 06/29/2023 10:54 AM EDT Report called to [place] [id number] Note* Perioperative Nursing Note - Usman Ulrich RN - 06/29/2023 10:40 AM EDT POST ENDOSCOPY PROCEDURE TRANSFER REPORT Procedure completed: EGD Findings: WDL Specimens obtained: None Medications administered: 200mg Propofol per DIRECTOR DIGITAL STRATEGY Additional Info: Adult diet regular; 3 carb choices (45gm/meal); see Dr Sibley' orders For additional Questions please call Endoscopy at [phone]. Thank You! [place] [id number] Note* Perioperative Nursing Note - Usman Ulrich RN - 06/29/2023 10:40 AM EDT POST ENDOSCOPY PROCEDURE TRANSFER REPORT Procedure completed: EGD Findings: WDL Specimens obtained: None Medications administered: 200mg Propofol per DIRECTOR DIGITAL STRATEGY Additional Info: Adult diet regular; 3 carb choices (45gm/meal); see Dr Sibley' orders For additional Questions please call Endoscopy at [phone]. Thank You! [place] [id number] Note* Perioperative Nursing Note - Usman Ulrich RN - 06/29/2023 10:[address] Sibley in room talking to patient [place] [id number] Note* Perioperative Nursing Note - Usman Ulrich RN - 06/29/2023 10:[address] Sibley in room talking to patient [facility] [id number] Note* Addendum Note - JEREMY Naranjo CRNA - 06/29/2023 10:21 AM EDT Addendum created 06/29/23 1021 by JEREMY Naranjo CRNA Attestation recorded in Intraprocedure, Intraprocedure Attestations filed [facility] [id number] Miscellaneous Notes* Addendum Note - JEREMY Naranjo CRNA - 06/29/2023 10:21 AM EDT Addendum created 06/29/23 1021 by JEREMY Naranjo CRNA Attestation recorded in Intraprocedure, Intraprocedure Attestations filed * Anesthesia Discharge Note - JEREMY Naranjo CRNA - 06/29/2023 10:20 AM EDT Patient: Maria Luisa Jacinto Procedure Summary Date: 06/29/23 Room / Location: [place] [address] / [facility] Gastroenterology Anesthesia Start: 953 Anesthesia Stop: 1019 [...] criteria has been met. documented in this encounterSF[facility] HospitalEqpppd35-80-3460 Note* Anesthesia Discharge Note - JEREMY Naranjo CRNA - 06/29/2023 10:20 AM EDT Patient: Maria Luisa Jacinto Procedure Summary Date: 06/29/23 Room / Location: [place] [address] / [facility] Gastroenterology Anesthesia Start: 953 Anesthesia Stop: 1018 [...] once all PACU criteria has been met. [facility] [id number] Anesthesiology Postoperative evaluation and management note* Anesthesia Postprocedure Evaluation - JEREMY Naranjo CRNA - 06/29/2023 10:20 AM EDT Patient: Maria Luisa Jacinto Procedure Summary Date: 06/29/23 Room / Location: [place] [address] / [facility] Gastroenterology Anesthesia Start: 953 Anesthesia Stop: 1018 [...] opportunity for questions and acknowledgement of understanding. T [facility] [id number] Surgical operation note* Anesthesia Postprocedure Evaluation - JEREMY Naranjo CRNA - 06/29/2023 10:20 AM EDT Patient: Maria Luisa Jacinto Procedure Summary Date: 06/29/23 Room / Location: [place] [address] / [facility] Gastroenterology Anesthesia Start: 953 Anesthesia Stop: 1019 [...] Date/Time: 06/29/23 0900 Procedure: EGD DIAGNOSTIC Location: [place] [address] / [facility] Gastroenterology Providers: Sergio Sibley DO Relevant Problems Cardio (+) Hyperlipidemia (+) Hypertension (+) 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 (HCC) Endo (+) Type 2 diabetes mellitus with hyperglycemia, with long-term current use of insulin ([facility]) ([facility]) (+) Uncontrolled type 2 diabetes mellitus with complication Other (+) Chronic osteomyelitis ([facility]) ([facility]) (+) Endometrial carcinoma ([facility]) Past Medical History: Past Medical History: No date: Abnormal uterine bleeding (AUB) Comment: SCHEDULED FOR THE SURGERY ON 05/16/2019 No date: Above knee amputation of right lower extremity ([facility]) No date: Acquired absence of other toe(s), unspecified side ([facility]) No date: Anxiety disorder No date: Bipolar 1 disorder ([facility]) No date: Blood circulation, collateral No date: Cellulitis Comment: chronic L lower leg 12/08/2021: COVID No date: Depression No date: Diabetes mellitus ([facility]) Comment: Type II, on insulin No date: Disease of blood and blood forming organ 11/25/2020: Endometrial carcinoma ([facility]) No date: Endometrial hyperplasia No date: Foot ulcer ([facility]) No date: Hx of blood clots Comment: RLE prior to amputation No date: Hyperlipidemia No date: Hypertension No date: Lymphedema No date: 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, RLE No date: Morbidly obese ([facility]) No date: Muscle weakness No date: Osteomyelitis ([facility]) 2019: Osteomyelitis ([facility]) Comment: RLE No date: Other lack of coordination No date: Other specified soft tissue disorders No date: Other symbolic dysfunctions No date: Schizophrenia ([facility]) No date: Sleep apnea Comment: [...] deviation no longer present documented in this [facility]08-22-2023 Nurse Note* Usman Ulrich RN - 06/29/2023 10:18 AM EDT No specimens [facility] [id number] Nurse Note* Usman Ulrich RN - 06/29/2023 10:18 AM EDT No specimens documented in this [facility]08-22-2023 Anesthesiology Preoperative evaluation and management note* Anesthesia Preprocedure Evaluation - Ezio Lr, JEREMY - DIRECTOR DIGITAL STRATEGY - 06/29/2023 9:41 AM EDT Patient: Maria Luisa Jacinto Procedure Information Date/Time: 06/29/23 0900 Procedure: EGD DIAGNOSTIC Location: [place] [address] / [facility] Gastroenterology Providers: Sergio Sibley, DO Relevant Problems Cardio (+) Hyperlipidemia (+) Hypertension (+) 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 (HCC) Endo (+) Type 2 diabetes mellitus with hyperglycemia, with long-term current use of insulin ([facility]/HCC) ([facility]) (+) Uncontrolled type 2 diabetes mellitus with complication Other (+) Chronic osteomyelitis ([facility]/HCC) ([facility]) (+) Endometrial carcinoma ([facility]) Past Medical History: Past Medical History: No date: Abnormal uterine bleeding (AUB) Comment: SCHEDULED FOR THE SURGERY ON 05/16/2019 No date: Above knee amputation of right lower extremity ([facility]) No date: Acquired absence of other toe(s), unspecified side ([facility]) No date: Anxiety disorder No date: Bipolar 1 disorder ([facility]) No date: Blood circulation, collateral No date: Cellulitis Comment: chronic L lower leg 12/08/2021: COVID No date: Depression No date: Diabetes mellitus ([facility]) Comment: Type II, on insulin No date: Disease of blood and blood forming organ 11/25/2020: Endometrial carcinoma ([facility]) No date: Endometrial hyperplasia No date: Foot ulcer ([facility]) No date: Hx of blood clots Comment: RLE prior to amputation No date: Hyperlipidemia No date: Hypertension No date: Lymphedema No date: 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, RLE No date: Morbidly obese ([facility]) No date: Muscle weakness No date: Osteomyelitis ([facility]) 2019: Osteomyelitis ([facility]) Comment: RLE No date: Other lack of coordination No date: Other specified soft tissue disorders No date: Other symbolic dysfunctions No date: Schizophrenia ([facility]) No date: Sleep apnea Comment: [...] ST (T wave) deviation no longer present [facility] HospitalTvdtom00-30-9900 Note* Op Note - Sergio Sibley DO - 06/29/2023 8:19 AM EDT [facility] Will Jacinto Procedure Date: 06/29/2023 8:19 AM Gender: Female Date of : 1965 Age: 57 Admit Type: Inpatient Note Status: Finalized Endoscopist: Sergio Sibley DO, [id number] Procedure: Upper GI endoscopy Indications: Chest pain [...] immediate complications. Procedure Code(s): --- Professional --- 46723, Esophagogastroduodenoscopy, flexible, transoral; diagnostic, including collection of specimen(s) by brushing or washing, when performed (separate procedure) --- Technical --- 70339, Esophagogastroduodenoscopy, flexible, transoral; diagnostic, including collection of specimen(s) by brushing or washing, when performed (separate procedure) Diagnosis Code(s): --- Professional --- R07.89, Other chest pain R11.2, Nausea with vomiting, unspecified --- Technical --- R07.89, Other chest pain R11.2, Nausea with vomiting, unspecified CPT copyright 2021 [employer]. All rights reserved. The codes documented in this report are preliminary and upon assignment desk assistant review may be revised to meet current compliance requirements. Attending Participation: I personally performed the entire procedure. Sergio Sibley DO 06/29/2023 10:29:14 AM This report has been signed electronically. Number of Addenda: 0 Note Initiated On: 06/29/2023 8:19 AM T [facility] [id number] Note* Op Note - Sergio Sibley DO - 06/29/2023 8:19 AM EDT [facility] Name: Will Jacinto Procedure Date: 06/29/2023 8:19 AM Gender: Female Date of : 1965 Age: 57 Admit Type: Inpatient Note Status: Finalized Endoscopist: Sergio Sibley DO, [id number] Procedure: Upper GI endoscopy Indications: Chest pain [...] immediate complications. Procedure Code(s): --- Professional --- 15017, Esophagogastroduodenoscopy, flexible, transoral; diagnostic, including collection of specimen(s) by brushing or washing, when performed (separate procedure) --- Technical --- 96431, Esophagogastroduodenoscopy, flexible, transoral; diagnostic, including collection of specimen(s) by brushing or washing, when performed (separate procedure) Diagnosis Code(s): --- Professional --- R07.89, Other chest pain R11.2, Nausea with vomiting, unspecified --- Technical --- R07.89, Other chest pain R11.2, Nausea with vomiting, unspecified CPT copyright 2021 [employer]. All rights reserved. The codes documented in this report are preliminary and upon assignment desk assistant review may be revised to meet current compliance requirements. Attending Participation: I personally performed the entire procedure. Sergio Sibley DO 06/29/2023 10:29:14 AM This report has been signed electronically. Number of Addenda: 0 Note Initiated On: 06/29/2023 8:19 AM T [facility] [id number] Consult note* Sergio Sibley DO - 06/28/2023 [...] side (HCC) Anxiety disorder Bipolar 1 disorder ([facility]) Blood circulation, collateral Cellulitis chronic L lower leg COVID 12/08/2021 Depression Diabetes mellitus ([facility]) Type II, on insulin Disease of blood and blood forming organ Endometrial carcinoma ([facility]) 11/25/2020 Endometrial hyperplasia Foot ulcer ([facility]) Hx of blood clots RLE prior to amputation Hyperlipidemia Hypertension Lymphedema 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, RLE Morbidly obese ([facility]) Muscle weakness Osteomyelitis (HCC) Osteomyelitis (HCC) 2019 RLE Other lack of coordination Other specified soft tissue disorders Other symbolic dysfunctions Schizophrenia ([facility]) Sleep apnea no CPAP Venous [...] before lunch/285 units before dinner Lactobacillus Acid-Pectin (Acidophilus/Baldwin Pectin) tablet 1 tablet, Oral, 2 times [...] injection 0-18 Units, 0-18 Units, SubCUTAneous, TID FAITH, Geronimo Lee MD Insulin Lispro (Humalog) injection [...] packet 17 g, 17 g, Oral, Daily, Nbail M Esterle, DO polyethylene glycol (PEG) 3350 [...] by Sergio Sibley DO 06/28/2023 11:59 AM [employer] Phone: 1(679) 558-441508-21-2023 Consult note* Sergio Sibley DO - 06/28/2023 [...] side (HCC) Anxiety disorder Bipolar 1 disorder ([facility]) Blood circulation, collateral Cellulitis chronic L lower leg COVID 12/08/2021 Depression Diabetes mellitus ([facility]) Type II, on insulin Disease of blood and blood forming organ Endometrial carcinoma ([facility]) 11/25/2020 Endometrial hyperplasia Foot ulcer ([facility]) Hx of blood clots RLE prior to amputation Hyperlipidemia Hypertension Lymphedema 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, RLE Morbidly obese ([facility]) Muscle weakness Osteomyelitis ([facility]) Osteomyelitis ([facility]) 2019 RLE Other lack of [...] before lunch/285 units before dinner Lactobacillus Acid-Pectin (Acidophilus/Baldwin Pectin) tablet 1 tablet, Oral, 2 times [...] 0-18 Units, 0-18 Units, SubCUTAneous, TID WC, Geronimo Lee MD Insulin Lispro (Humalog) injection [...] 20 mEq, 20 mEq, Oral, q24h, Nabil Mane Esterle, DO, 20 mEq at 06/28/23 1054 sodium chloride 0.9 % infusion, 75 mL/hr, IntraVENous, Continuous, Nabil Mane Esterle, DO, Last Rate: 75 mL/hr at [...] : 1965 AGE: 57 y.o. Room/Bed: [facility]/[address] Admission Date: 06/28/2023 Visit Date: 06/28/2023 Reason for Endocrine Consult: dm2 Provider/Team Requesting Consult: Dr. Hill PCP: Jared Guzman Outpt Ctc Operator: Dr. Jesus spear endo ASSESSMENT: DM 2 [...] 10%-15% lower than serum/plasma values. (CLIA ID [id number]) 12/23/2021 07:28 AM 107 (H) 70 - 100 mg/dL Final Comment: Test performed by glucose meter. Results may be 10%-15% lower than serum/plasma values. (CLIA ID [id number]) 11/28/2020 04:54 PM 111 (H) 70 - 100 mg/dL Final Comment: Test performed by glucose meter. Results may be 10%-15% lower than serum/plasma values. (CLIA ID [id number]) 11/28/2020 10:18 AM 166 (H) 70 - 100 mg/dL Final Comment: Test performed by glucose meter. Results may be 10%-15% lower than serum/plasma values. (CLIA ID [id number]) 11/28/2020 07:57 AM 215 (H) 70 - 100 mg/dL Final Comment: Test performed by glucose meter. Results may be 10%-15% lower than serum/plasma values. (CLIA ID [id number]) 11/27/2020 09:08 PM 91 70 - 100 mg/dL Final Comment: Test performed by glucose meter. Results may be 10%-15% lower than serum/plasma values. (CLIA ID [id number]) Review of Systems Constitutional: Positive for appetite [...] before lunch/285 units before dinner Lactobacillus Acid-Pectin (Acidophilus/Baldwin Pectin) tablet 1 tablet, Oral, 2 times [...] found for: CHOLHDLRATIO No results found for: [id number] Lab Results Component Value Date TSH 2.356 11/26/2020 Radiology reportsas per the Radiologist Radiology: ECG 12 lead Result Date: 06/28/2023 Sinus tachycardia Nonspecific IVCD with LAD Left ventricular hypertrophy Minimal ST elevation, anterolateral leads Electronically Signed On 06-28-2023 5:20:13 EDT by Rosaura Mustafa CT chest angiogram w and/or wo IV contrast Result Date: 06/28/2023 [facility] Name: [facility] 1965 [id number] Exam Date/Time: 06/28/2023 03:49 Procedure: CT CHEST [...] AM EDTAssociated Order(s): IP CONSULT TO CARDIOLOGY [facility] CARDIOLOGY CONS[facility] Patient Name: Will Jacinto [...] (AUB), Above knee amputation of right lowerextremity ([facility]), Acquired absence of other toe(s), unspecified side ([facility]), Anxiety disorder, Bipolar 1 disorder ([facility]), Blood circulation, collateral, Cellulitis, COVID (12/08/2021), Depression, Diabetes mellitus ([facility]), Disease of blood and blood forming organ, Endometrial carcinoma ([facility]) (11/25/2020), Endometrial hyperplasia, Foot ulcer ([facility]), blood clots, Hyperlipidemia, Hypertension, Lymphedema,MDRO (multiple drug resistant organisms) resistance, Morbidly obese ([facility]), Muscle weakness, Osteomyelitis ([facility]), Osteomyelitis ([facility]) (2018), Other lack of coordination, Other specified soft tissue disorders, Other symbolic dysfunctions, Schizophrenia ([facility]), Sleep apnea, and Venous insufficiency. He has no past medical history of Arthritis, Asthma, CAD (coronary artery disease), Cerebral arteryocclusion with cerebral infarction ([facility]), CHF (congestive heart failure) ([facility]) ([facility]), Chronic kidney disease, COPD (chronic obstructive pulmonary disease) ([facility]), GERD (gastroesophageal reflux disease), Hemodialysis patient ([facility]) ([facility]), History of blood transfusion, Liver disease, Movement disorder, Neuromuscular disorder ([facility]), Other disorders of kidney and ureter in diseases classified elsewhere, Pneumonia, Seizures ([facility]), or Thyroid disease. SurgicalHistory: has a past surgical history that includes [place] tooth extraction; Dilation and curettage of uterus(05/18/2019); [...] units before dinner Historical Provider, Lactobacillus Acid-Pectin (Acidophilus/Baldwin Pectin) tablet Take 1 tablet by mouth in the morning and 1 tablet in the evening. Historical ProviderMD lisinopril 40 MG tablet Every 24 hours. Historical ProviderMD Loratadine 10 MG capsule Take by mouth. Historical ProviderMD magnesium hydroxide (Milk of Magnesia Concentrate) 2400 MG/10ML suspension suspension Every 24 hours. Historical ProviderMD megestrol (Megace) 20 MG tablet Take 1 tablet by mouth in the morning and 1 tablet before bedtime. 08/13/21 Haylee Kramer MD metoclopramide (Reglan) 10 MG tablet Take 1 [...] Take 40 mg by mouth. 11/26/20 Historical ProviderMD polyethylene glycol, PEG, 3350 (Glycolax) 17 GM/SCOOP powder Take 17 g by mouth daily. Historical ProviderMD potassium chloride CR (K-Tab) 20 MEQ ER tablet Every 24 hours. Historical ProviderMD simvastatin (Zocor) 20 MG tablet Every 24 [...] acute infiltrate or effusion. documented in this [facility]08-21-2023 Consult note* Geronimo Lee MD - 06/28/2023 10:45 AM EDTAssociated Order(s): IP CONSULT TO ENDOCRINOLOGY Department of Internal Medicine Division of Endocrinology, Diabetes, & Metabolism Endocrinology Note Patient Name: Will Jacinto : 1965 AGE: 57 y.o. Room/Bed: B2249/[facility]249 B Admission Date: 06/28/2023 Visit Date: 06/28/2023 Reason for Endocrine Consult: dm2 Provider/Team Requesting Consult: Dr. Hill PCP: Jared Guzman Outpt Ctc Operator: Dr. Lee [facility] endo ASSESSMENT: DM 2 poor control Cheat [...] 10%-15% lower than serum/plasma values. (CLIA ID [id number]) 12/23/2021 07:28 AM 107 (H) 70 - 100 mg/dL Final Comment: Test performed by glucose meter. Results may be 10%-15% lower than serum/plasma values. (CLIA ID [id number]) 11/28/2020 04:54 PM 111 (H) 70 - 100 mg/dL Final Comment: Test performed by glucose meter. Results may be 10%-15% lower than serum/plasma values. (CLIA ID [id number]) 11/28/2020 10:18 AM 166 (H) 70 - 100 mg/dL Final Comment: Test performed by glucose meter. Results may be 10%-15% lower than serum/plasma values. (CLIA ID [id number]) 11/28/2020 07:57 AM 215 (H) 70 - 100 mg/dL Final Comment: Test performed by glucose meter. Results may be 10%-15% lower than serum/plasma values. (CLIA ID [id number]) 11/27/2020 09:08 PM 91 70 - 100 mg/dL Final Comment: Test performed by glucose meter. Results may be 10%-15% lower than serum/plasma values. (CLIA ID [id number]) Review of Systems Constitutional: Positive for appetite [...] before lunch/285 units before dinner Lactobacillus Acid-Pectin (Acidophilus/Baldwin Pectin) tablet 1 tablet, Oral, 2 times [...] found for: CHOLHDLRATIO No results found for: [id number] Lab Results Component Value Date TSH 2.356 11/26/2020 Radiology reportsas per the Radiologist Radiology: ECG 12 lead Result Date: 06/28/2023 Sinus tachycardia Nonspecific IVCD with LAD Left ventricular hypertrophy Minimal ST elevation, anterolateral leads Electronically Signed On 06-28-2023 5:20:13 EDT by Rosaura Mustafa CT chest angiogram w and/or wo IV contrast Result Date: 06/28/2023 Patient Name: WILL [facility]ACINTO : 1965 [id number] Exam Date/Time: 06/28/2023 03:49 Procedure: CT CHEST 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 [employer] Phone: 1(984) 824-471008-21-2023 Note* Care Coordination - Herber Armando RN - 06/28/2023 10:12 AM EDT Care Managment Initial Assessment Date: 06/28/2023 Patient Name: Will Jacinto : 1965 Patient Information Source of Information: Patient Cognition/Language: WFL - Within Functional Limits Permission given to speak with patient customer service representative teacher/caregiver as indicated: Yes (Jovana Quesada [facility]) [phone]) Confirmation of Payer with patient/family: Yes Payer Name: [facility] Dual : No Confirmation of Primary Care Physician: Confirmed PCP Name: Jared Guzman Seen in last 2 years?: Yes Primary Caregiver: Other (Comment) ([facility] staff) If assistance needed, confirmed caregiver ready, willing and able to care for patient at discharge:Yes Confirmed with: Patient states staff from [facility] Living Arrangements Current Residence: ([facility]) Number of Floors Number of Entry Steps: Bed/Bath Levels: Facility: Senior Living/[facility] Facility Name: [facility] Plan to Return: Yes Lives with: Support Systems: Family members Activities of Daily Living Ambulation: Total Care (wheelchair) Bathing/Dressing: Total Care Elimination/Continence/Toileting: Assistance Feeding: Independent Who Assists with Activities of Daily Living: Staff from [facility] Instrumental Activities of Daily Living Prescription Coverage: Yes Pharmacy Used: Pharmacy through [facility] Medication Management: Assistance Type: Dose packaging system Who assists with medication securing and setup?: [facility] staff Transportation/Shopping: Assistance Provider Transportation Mode: Needs Assistance with Transportation at Discharge: No Meal Preparation: Assistance Provider Meal Prep Assistance Provider Name: [facility] staff Laundry/Cleaning: Assistance Provider Laundry/Cleaning Assistance Provider Name: [facility] staff Finances/Bill Paying: Assistance Provider Finances/Bill Payer Assistance Provider Name: Family Communication: Independent Types of Care Services/Equipment Utilized Care Services: Dialysis Type: NA Durable Medical Equipment: Wheelchair (standard or power) Patient's Goal/Discharge Plan Patient expects to be discharged to: Back to [facility]. Discharge Planning Actions: Continue to follow Patient's [...] R bka, is wheelchair bound. Lives at [facility] and plans to return. Cardiology consulted. [facility] to [facility]. TCC will continue to follow. Herber Armando RN [facility] [id number] Note* Care Coordination - Herber Armando RN - 06/28/2023 10:12 AM EDT Care Managment Initial Assessment Date: 06/28/2023 Patient Name: Will Jacinto : 1965 Patient Information Source of Information: Patient Cognition/Language: WFL - Within Functional Limits Permission given to speak with patient customer service representative teacher/caregiver as indicated: Yes (Jovana Quesada ([facility]) [phone]) Confirmation of Payer with patient/family: Yes Payer Name: [facility] Dual [place]: No Confirmation of Primary Care Physician: Confirmed PCP Name: Jared Guzman Seen in last 2 years?: Yes Primary Caregiver: Other (Comment) ([facility] staff) If assistance needed, confirmed caregiver ready, willing and able to care for patient at discharge:Yes Confirmed with: Patient states staff from [facility] Living Arrangements Current Residence: ([facility]) Number of Floors Number of Entry Steps: Bed/Bath Levels: Facility: Senior Living/[facility] Care Facility Name: [facility] Plan to Return: Yes Lives with: Support Systems: Family members Activities of Daily Living Ambulation: Total Care (wheelchair) Bathing/Dressing: Total Care Elimination/Continence/Toileting: Assistance Feeding: Independent Who Assists with Activities of Daily Living: Staff from [facility] Instrumental Activities of Daily Living Prescription Coverage: Yes Pharmacy Used: Pharmacy through [facility] Medication Management: Assistance Type: Dose packaging system Who assists with medication securing and setup?: ECF staff Transportation/Shopping: Assistance Provider Transportation Mode: Needs Assistance with Transportation at Discharge: No Meal Preparation: Assistance Provider Meal Prep Assistance Provider Name: [facility] staff Laundry/Cleaning: Assistance Provider Laundry/Cleaning Assistance Provider Name: [facility] staff Finances/Bill Paying: Assistance Provider Finances/Bill Payer Assistance Provider Name: Family Communication: Independent Types of Care Services/Equipment Utilized Care Services: Dialysis Type: NA Durable Medical Equipment: Wheelchair (standard or power) Patient's Goal/Discharge Plan Patient expects to be discharged to: Back to [facility]. Discharge Planning Actions: Continue to follow Patient's [...] R bka, is wheelchair bound. Lives at [facility] and plans to return. Cardiology consulted. Task sent to [facility] via [facility] to place return referral to [facility]. TCC will continue to follow. Herber Armando RN [facility] [id number] Consult note* Supriya Baeza MD - 06/28/2023 9:16 AM EDT Associated Order(s): IP CONSULT TO CARDIOLOGY [facility] CARDIOLOGY CONSULTATION Patient Name: Will Jacinto [...] (AUB), Above knee amputation of right lowerextremity ([facility]), Acquired absence of other toe(s), unspecified side ([facility]), Anxiety disorder, Bipolar 1 disorder ([facility]), Blood circulation, collateral, Cellulitis, COVID (12/08/2021), Depression, Diabetes mellitus ([facility]), Disease of blood and blood forming organ, Endometrial carcinoma ([facility]) (11/25/2020), Endometrial hyperplasia, Foot ulcer ([facility]), blood clots, Hyperlipidemia, Hypertension, Lymphedema,MDRO (multiple drug resistant organisms) resistance, Morbidly obese ([facility]), Muscle weakness, Osteomyelitis ([facility]), Osteomyelitis ([facility]) (2018), Other lack of coordination, Other specified soft tissue disorders, Other symbolic dysfunctions, Schizophrenia ([facility]), Sleep apnea, and Venous insufficiency. He has no past medical history of Arthritis, Asthma, CAD (coronary artery disease), Cerebral arteryocclusion with cerebral infarction ([facility]), CHF (congestive heart failure) ([facility]) ([facility]), Chronic kidney disease, COPD (chronic obstructive pulmonary disease) ([facility]), GERD (gastroesophageal reflux disease), Hemodialysis patient ([facility]) ([facility]), History of blood transfusion, Liver disease, Movement disorder, Neuromuscular disorder ([facility]), Other disorders of kidney and ureter in diseases classified elsewhere, Pneumonia, Seizures ([facility]), or Thyroid disease. SurgicalHistory: has a past surgical history that includes [place] tooth extraction; Dilation and curettage of uterus(05/18/2019); [...] units before dinner Historical ProviderMD Lactobacillus Acid-Pectin (Acidophilus/Baldwin Pectin) tablet Take 1 tablet by mouth in the morning and 1 tablet in the evening. Historical ProviderMD lisinopril 40 MG tablet Every 24 hours. Historical ProviderMD Loratadine 10 MG capsule Take by mouth. Historical ProviderMD magnesium hydroxide (Milk of Magnesia Concentrate) 2400 MG/10ML suspension suspension Every 24 hours. Historical ProviderMD megestrol (Megace) 20 MG tablet Take 1 tablet by mouth in the morning and 1 tablet before bedtime. 08/13/21 Haylee Kramer MD metoclopramide (Reglan) 10 MG tablet Take 1 [...] Take 40 mg by mouth. 11/26/20 Historical ProviderMD polyethylene glycol, PEG, 3350 (Glycolax) 17 GM/SCOOP powder Take 17 g by mouth daily. Historical ProviderMD potassium chloride CR (K-Tab) 20 MEQ ER tablet Every 24 hours. Historical ProviderMD simvastatin (Zocor) 20 MG tablet Every 24 [...] lung volumes. No acute infiltrate or effusion. [employer] Phone: 1(924) 101-500908-21-2023 History and physical note* Nabil Hill, - 06/28/2023 8:41 AM EDT Department of 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, RLE Morbidly obese ([facility]) Muscle weakness Osteomyelitis ([facility]) Osteomyelitis ([facility]) 2019 RLE Other lack of coordination Other specified soft tissue disorders Other symbolic dysfunctions Schizophrenia ([facility]) Sleep apnea no CPAP Venous [...] before lunch/285 units before dinner Lactobacillus Acid-Pectin (Acidophilus/Baldwin Pectin) tablet Take 1 tablet by mouth [...] (HCC) Left leg cellulitis Diabetic foot infection (HCC) [...] trops NABIL HILL DO 06/28/23 8:42 AM [facility] [id number] History and physical note* Nabil Hill DO [...] side (HCC) Anxiety disorder Bipolar 1 disorder ([facility]) Blood circulation, collateral Cellulitis chronic L lower leg COVID 12/08/2021 Depression Diabetes mellitus ([facility]) Type II, on insulin Disease of blood and blood forming organ Endometrial carcinoma (HCC) 11/25/2020 Endometrial hyperplasia Foot ulcer (HCC) Hx of blood clots RLE prior to amputation Hyperlipidemia Hypertension Lymphedema 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, RLE Morbidly obese ([facility]) Muscle weakness Osteomyelitis (HCC) Osteomyelitis (HCC) 2019 RLE Other lack of coordination Other specified soft tissue disorders Other symbolic dysfunctions Schizophrenia ([facility]) Sleep apnea no CPAP Venous [...] before lunch/285 units before dinner Lactobacillus Acid-Pectin (Acidophilus/Baldwin Pectin) tablet Take 1 tablet by mouth [...] hyperglycemia, with long-term current use of insulin ([facility]/HCC) (HCC) Hyperglycemia Post-menopausal bleeding Morbid obesity (HCC) Left leg cellulitis Diabetic foot infection ([facility]) S/P AKA (above knee amputation) unilateral, right ([facility]) Class 3 severe obesity due to excess calories with serious comorbidity and body mass index (BMI) of60.0 to 69.9 in adult ([facility]) Chest pain Chest pain Nausea and vomiting DM 2 Morbid obesity HPL HTN Plan Admit to tele Consult cardio Consult endo Consult gi Clears and ivf for now Serial trops NABIL HILL DO 06/28/23 8:42 AM documented in this [facility]08-21-2023 Note* Significant Event - Ramsey Mc MD - 06/28/2023 7:59 AM EDT Patient was referred to the [facility] service for admission but his primary care physician is covered by Dr. Hill. Dr. Hill will see and admit. Attending changed to Dr. Hill. [employer] Phone: 1(215) 652-998108-21-2023 Note* Significant Event - Ramsey Mc MD - 06/28/2023 7:59 AM EDT Patient was referred to the [facility] service for admission but his primary care physician is covered by Dr. Hill. Dr. Hill will see and admit. Attending changed to Dr. Hill. [employer] Phone: 1(640) 156-868208-21-2023 NoteSuboptimal opacification of the pulmonary arteries. This [...] Report Dictated on Electronically Signed By: Chucho Stirnger MD Electronically Signed Date/Time: 06/28/2023 4:37 AM [facility] [id number] Emergency department Note* Dalila Mendes RN - 06/28/2023 2:14 AM EDT Bed: 33 Expected date: Expected time: Means of arrival: Comments: EMS Dalila Mendes RN 06/28/23 0214 [id number] Emergency department Note* Rosaura Mustafa DO - [...] Alcohol use: No Drug use: Never SCREENINGS [place] Coma Scale Best Eye Response: Spontaneous Best [...] signed) Emergency Medicine Provider Rosaura Mustafa DO 06/28/23 0523 * Melissa Sosa RN - 06/28/2023 2:14 AM EDT Pt presents to ED via EMS from [facility]. Pt is experiencing chest pain that started before midnight. Pt has also been vomiting today. Pt denies hx of DE. * Dalila Mendes RN - 06/28/2023 2:14 AM EDT Bed: 33 Expected date: Expected time: Means of arrival: Comments: EMS Dalila Mendes RN 06/28/23 0214 documented in this encounterSFayette County Memorial HospitalErnius46-43-5749 Emergency department Triage note* Melissa Sosa RN - 06/28/2023 2:14 AM EDT Pt presents to ED via EMS from [facility]. Pt is experiencing chest pain that started before midnight. Pt has also been vomiting today. Pt denies hx of DE. [facility] [id number] Physician Emergency department Note* Rosaura Mustafa DO [...] side (HCC) Anxiety disorder Bipolar 1 disorder ([facility]) Blood circulation, collateral Cellulitis chronic L lower leg COVID 12/08/2021 Depression Diabetes mellitus ([facility]) Type II, on insulin Disease of blood and blood forming organ Endometrial carcinoma ([facility]) 11/25/2020 Endometrial hyperplasia Foot ulcer (HCC) Hx of blood clots RLE prior to amputation Hyperlipidemia Hypertension Lymphedema 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, RLE Morbidly obese ([facility]) Muscle weakness Osteomyelitis (HCC) Osteomyelitis [...] Response: Oriented Best Motor Response: Follows commands [place] Coma Scale Score: 15 HEART Score History: [...] signed) Emergency Medicine Provider Rosaura Mustafa DO 06/28/23 0567 [place] [id number] Telephone encounter Note* Telephone Encounter - Radha Busby MA - 06/23/2023 8:22 AM EDT Called [facility] and spoke with nurse minesh. I relayed the message below and she verbalized understanding. [id number] Miscellaneous Notes* Telephone Encounter - Radha Busby MA - 06/23/2023 8:22 AM EDT Called [facility] and spoke with nurse minesh. I relayed the message below and she verbalized understanding. * Telephone Encounter - Geronimo Lee MD - 06/22/2023 4:43 PM EDT Keep doses the same for now thank you * Telephone Encounter - Jackson Pratt - 06/22/2023 3:35 PM EDT Images from the original note were not included. Patient BGL documented in this encounterSFayette County Memorial HospitalJgeoxp06-28-4442 Telephone encounter Note* Telephone Encounter - Geronimo Lee MD - 06/22/2023 4:43 PM EDT Keep doses the same for now thank you [facility] Phone: 1(921) 778-495408-15-2023 Telephone encounter Note* Telephone Encounter - Jackson Pratt - 06/22/2023 3:35 PM EDT Images from the original note were not included. Patient BGL [facility] [id number] Telephone encounter Note* Telephone Encounter - Idalmis Rodriguez MA - 05/18/2023 11:32 AM EDT Called patient and left message stating there is no changes at this time. [place] [id number] Miscellaneous Notes* Telephone Encounter - Idalmis Rodriguez [...] not included. Patient BGL documented in this encounterSFayette County Memorial HospitalEmgedc06-60-9371 Telephone encounter Note* Telephone Encounter - Geronimo Lee MD - 05/17/2023 4:48 PM EDT Keep doses the same increased trulicity already [facility] rocket staff [facility] Phone: [phone] Telephone encounter Note* Telephone Encounter - Jackson Pratt - 05/17/2023 3:35 PM EDT Images from the original note were not included. Patient BGL [facility] HospitalXfgffe06-07-3919 Note* Addendum Note - Radha Busby MA - 05/07/2023 10:05 AM EDTAddended by: RADHA BUSBY on: 05/07/2023 10:05 AM Modules accepted: Orders [facility] [id number] Miscellaneous Notes* Addendum Note - Radha Busby MA - 05/07/2023 10:05 AM EDTAddended by: RADHA BUSBY on: 05/07/2023 10:05 AM Modules accepted: Orders * Telephone Encounter - Radha Busby MA - 05/07/2023 10:04 AM EDT Called [facility] and spoke with nurse don. I relayed the message below and she [...] not included. Patient BGL documented in this encounterSFayette County Memorial HospitalXmttel70-58-5474 Telephone encounter Note* Telephone Encounter - Radha Busby MA - 05/07/2023 10:04 AM EDT Called [facility] and spoke with nurse don. I relayed the message below and she verbalized understanding. Med req updated. [facility] HospitalVtmkzg49-14-9350 Telephone encounter Note* Telephone Encounter - Geronimo Lee MD - 05/06/2023 11:19 AM EDT Please increase trulicity to 4.5 mg weekly thank you [facility] rocket staff [facility] Phone: [phone] Miscellaneous Notes* Telephone Encounter - Geronimo Lee [...] doses thank you * Telephone Encounter - Jackosn Pratt - 05/05/2023 3:27 PM EDT Images from the original note were not included. Patient BGL documented in this [facility]06-29-2023 Telephone encounter Note* Telephone Encounter - Radha Busby MA - 05/06/2023 10:18 AM EDT Patient is currently taking Humulin R u500 (285 units before breakfast/260 units before lunch/285 units before dinner) Trulicity 3mg weekly [facility] HospitalOvdrgu83-20-6663 Telephone encounter Note* Telephone Encounter - Geronimo Lee MD - 05/05/2023 4:27 PM EDT Please confirm current insulin doses thank you [facility] HospitalOwylbn51-14-7583 Telephone encounter Note* Telephone Encounter - Jackson Pratt - 05/05/2023 3:27 PM EDT Images from the original note were not included. Patient BGL [facility] [id number] Hospital Discharge instructions* Discharge Instructions* Jocelyn Santos MD - 03/08/2023 3:59 PM EDT Return to the ED if you cannot tolerate fluids with the Reglan. * Attachments The following attachments cannot be sent through Care Everywhere. * Gastroparesis (Delayed Gastric Emptying) (Russian) documented in this [facility]05-01-2023 Emergency department Note* Joellen Palmer RN - 03/08/2023 12:50 PM EDT Bed: 18 Expected date: Expected time: Means of arrival: Comments: Physicians Joellen Palmer RN 03/08/23 1250 [facility] HospitalNlqnbo32-19-2857 Emergency department Note* Karlos Osborn DO - 03/08/2023 12:50 PM EDT Emergency Department Encounter [facility] ED Patient: Will Jacinto : 1965 Date [...] of a CMP which was relatively unremarkable, szetd-qw-kvnx glucose was 167, CBC was relatively unremarkable. [...] for clarification.) Karlos Osborn DO Acute Care [facility] Karlos Osborn DO 03/08/23 1623 * Joellen Palmer RN - 03/08/2023 12:50 PM EDT Bed: 18 Expected date: Expected time: Means of arrival: Comments: Physicians Joellen Palmer RN 03/08/23 1250 documented in this [facility]05-01-2023 Physician Emergency department Note* Karlos Osborn DO - 03/08/2023 12:50 PM EDT Emergency Department Encounter [facility] ED Patient: Will Jacinto : 1965 Date [...] of a CMP which was relatively unremarkable, nwcec-xx-eweh glucose was 167, CBC was relatively unremarkable. [...] [employer] Karlos Osborn DO 03/08/23 1623 [employer] Phone: [phone]) [phone] Telephone encounter Note* Telephone Encounter - Radha Busby MA - 03/01/2023 9:01 AM EDT Patient received message. [employer] NetworksBhxrcn04-07-8527 Miscellaneous Notes* Telephone Encounter - Radha Busby [...] not included. Patient BGL documented in this encounterSFayette County Memorial HospitalLlnsee94-63-3390 Telephone encounter Note* Telephone Encounter - Radha Busby MA - 02/26/2023 1:39 PM EDT Called patient and left message to contact office. [facility] HospitalUxxzbg74-67-1987 Miscellaneous Notes* Telephone Encounter - Radha Busby [...] not included. Patient BGL documented in this encounterSFayette County Memorial HospitalCtqnry37-03-0160 Telephone encounter Note* Telephone Encounter - Geronimo Lee MD - 02/26/2023 11:18 AM EDT Increase morning u500 insulin dose by 25 units please thank you [place] [id number] Telephone encounter Note* Telephone Encounter - Jackson Pratt - 02/25/2023 3:35 PM EDT Images from the original note were not included. Patient BGL [place] [id number] History of Present illness Narrative* Geronimo Lee MD - 02/09/2023 9:20 AM EDT . [facility] [place] [address] [place] [id number] Dept: [phone] Dept Visit type: Established patient Reason for Visit: Follow-up (DM2) Assessment and Plan 1. Type 2 diabetes mellitus with hyperglycemia, with long-term current use of insulin ([facility]) ([facility]) 2. Mixed hyperlipidemia 3. Primary [...] U-500 KWIKPEN) 500 UNIT/ML CONCENTRATED injection Inject 190 Units underthe skin 3 times daily. Lactobacillus Acid-Pectin (Acidophilus/Baldwin Pectin) tablet Take 1 tablet by mouth 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, RLE Morbidly obese ([facility]) Muscle weakness Osteomyelitis (HCC) Osteomyelitis ([facility]) 2019 RLE Other lack of coordination Other specified soft tissue disorders Other symbolic dysfunctions Schizophrenia ([facility]) Sleep apnea no CPAP Venous [...] 1.25 mg/dL 0.73 EGFR >60 mL/min >90.0 [facility] EGFR IF NONAFRICAN [place] >60 mL/min >90.0 GLUCOSE 70 - 100 mg/dL 119 (H) CALCIUM 8.4 - 10.4 mg/dL 9.4 (H): Data is abnormally high Latest Reference Range & Units 08/29/20 00:00 11/23/20 03:51 07/20/22 00:00 HEMOGLOBIN A1C 5.7 % 9.9 10.0 ! 10.1 ! (E) !: Data is abnormal (E): External lab result Imaging/Testing: Geronimo Lee MD documented in this [facility]01-21-2021 NoteHospitalist Discharge Summary Will Jacinto : 1965 [...] transgender male, biologically female, presented from his senior care after abdominal pain, out of control glucose readings and reported mental status change. However, EMS in the hospital reported that he was alert and oriented x3, however, he says that recently he has had increasing abdominal distention and distress and he noticed that his glucoses have been harder and harder to control. Pt was admitted to [facility]. Pt had dysfunctinal uterine bleeding and transferred to [facility] for Budget Officer eval. Also had ab pain and found to have ileus. Seen by GI and recommended reglan. Pt had BMs. abd pain better. Advance diet to GI soft Seen by Budget Officer and had hysteroscopy with biopsy done KUB [...] 08/23/2020 No results found for: PHART, PO2ART, RUZ2HRA No results for input(s): INR in the [...] Result Date: 11/27/2020 [id number]iology ACCESSION EXAM DATE/TIME PROCEDURE ORDERING PROVIDER [id number] 11/27/2020 08:28 EST CR Abdomen AP MD MARTIN KHALED CPT code 82015 Reason For Exam (CR Abdomen AP) ileus Report ABDOMEN -1 VIEW: CLINICAL INDICATION: Ileus TECHNIQUE: 1 view of abdomen and pelvis COMPARISON: November 25, 2020 FINDINGS: Overall interval decrease in the amount of large and small bowel gas, which is in a nonobstructed pattern. No abnormal soft tissue calcifications are identified. Multilevel thoracolumbar degenerative change. IMP (more content not included)...[facility] SystemEvaluation noteNo assessment information availableWOhioHealth Marion General Hospital Work Phone: Evaluation note* Diagnosis Dental caries- Primary Unspecified dental caries [facility] Diagnosis Type 2 diabetes mellitus with hyperglycemia, with long-term current use of insulin ([facility]) ([facility])- Primary Mixed hyperlipidemia Primary hypertension Unspecified essential hypertension documented in this encounter [facility]* Diagnosis Abdominal pain, generalized- Primary Gastroparesis documented in this encounter [facility] HealthEvaluation note* Diagnosis Chest pain, unspecified type Chest pain, unspecified type documented in this encounter [facility]* Diagnosis Pyelonephritis- Primary Unspecified pyelonephritis Upper abdominal pain Nausea Nausea alone documented in this encounter [facility] HospitalEvaludelaware psychiatric center note* Diagnosis Upper abdominal pain- Primary Upper abdominal pain Hypoglycemia Hypoglycemia, unspecified Abdominal pain Abdominal pain, unspecified site documented in this encounter [facility] note* Diagnosis Hypoglycemia due to insulin- Primary Hypoglycemia Hypoglycemia, unspecified Hypothermia, initial encounter Altered mental status, unspecified altered mental status type [facility] (current) use of antibiotics Hypothermia, not associated with low environmental temperature Diabetic gastroparesis associated with type 2 diabetes mellitus ([facility]) ([facility]) Type II or unspecified type diabetes mellitus with neurological manifestations, not stated as uncontrolled Type 2 diabetes mellitus with hyperglycemia, with long-term current use of insulin ([facility]) Class 3 severe obesity due to excess calories with serious comorbidity and body mass index (BMI) of 60.0 to 69.9 in adult ([facility]) Acinetobacter lwoffi infection Infection due to other gram-negative organisms in conditions classified elsewhere and of unspecified site Bacteremia due to Gram-negative bacteria Sepsis without acute organ dysfunction ([facility]) documented in this encounter [facility] note* Diagnosis Type 2 diabetes mellitus with hyperglycemia, with long-term current use of insulin ([facility])- Primary Mixed hyperlipidemia Primary hypertension Unspecified essential hypertension documented in this encounter [facility] note* Diagnosis Nausea vomiting and diarrhea- Primary Dehydration documented in this encounter [facility]* Diagnosis Nausea with vomiting, unspecified documented in this encounter [facility] note* Diagnosis Nausea and vomiting, unspecified vomiting type- Primary documented in this encounter [facility] note* Diagnosis Nausea and vomiting, unspecified vomiting type- Primary Cystitis Unspecified cystitis documented in this encounter [facility]* Diagnosis Hypoglycemia- Primary Hypoglycemia, unspecified documented in this encounter [facility] note* Diagnosis Nausea with vomiting, unspecified- Primary Nausea with vomiting, unspecified [facility] this encounter [facility]* Diagnosis Lung nodule- Primary Other diseases of lung, not elsewhere classified JOHN (obstructive sleep apnea) Obstructive sleep apnea (adult) (pediatric) Morbid obesity with BMI of 45.0-49.9, adult ([facility]) documented in this encounter [facility] note* Diagnosis Solitary pulmonary nodule- Primary documented in this encounter [facility]udel[facility]* Diagnosis Acute cholecystitis- Primary Acute cholecystitis documented in this encounter [facility] note* Diagnosis Hypoglycemic episode in patient with diabetes mellitus (HCC)- Primary documented in this encounter [facility] note* Diagnosis Cholecystitis- Primary Cholecystitis, unspecified documented in this encounter [facility]* Diagnosis History of cholecystitis- Primary documented in this encounter [facility]* Diagnosis Cholecystitis- Primary Cholecystitis, unspecified documented in this encounter [facility] note* Diagnosis Cholecystitis- Primary Cholecystitis, unspecified Morbid obesity (HCC) Morbid obesity Class 3 severe obesity with serious comorbidity and body mass index (BMI) of 50.0 to 59.9 in adult, unspecified obesity type ([facility]) documented in this encounter [facility] note* Diagnosis Fecal occult blood test positive- Primary History of anemia Personal history of diseases of blood and blood-forming organs Calculus of gallbladder without cholecystitis without obstruction BMI 50.0-59.9, adult ([facility]) documented in this encounter [facility] note* Diagnosis Type 2 diabetes mellitus with hyperglycemia, with long-term current use of insulin ([facility])- Primary Type 2 diabetes mellitus with diabetic autonomic neuropathy, with long-term current use of insulin ([facility]) Microalbuminuria Proteinuria Essential hypertension Unspecified essential hypertension Mixed hyperlipidemia Class 3 severe obesity due to excess calories with serious comorbidity and body mass index (BMI) of 45.0 to 49.9 in adult ([facility]) Other fecal abnormalities Personal history of diseases of the blood and blood-forming organs and certain disorders involving the immune mechanism Calculus of gallbladder without cholecystitis without obstruction Body mass index (BMI) 50.0-59.9, adult ([facility]) documented in this encounter [facility] note* Diagnosis PAD (peripheral artery disease) ([facility])- Primary Unspecified peripheral vascular disease Hx of AKA (above knee amputation), right ([facility]) Lymphedema of left leg Morbid obesity ([facility]) Morbid obesity Other fecal abnormalities Personal history of diseases of the blood and blood-forming organs and certain disorders involving the immune mechanism Calculus of gallbladder without cholecystitis without obstruction Body mass index (BMI) 50.0-59.9, adult ([facility]) documented in this encounter [facility] note* Diagnosis PAD (peripheral artery disease) ([facility]) Unspecified peripheral vascular disease Other fecal abnormalities Personal history of diseases of the blood and blood-forming organs and certain disorders involving the immune mechanism Calculus of gallbladder without cholecystitis without obstruction Body mass index (BMI) 50.0-59.9, adult ([facility]) documented in this encounter [facility] note* Diagnosis Type 2 diabetes mellitus with hyperglycemia, with long-term current use of insulin ([facility])- Primary Type 2 diabetes mellitus with diabetic autonomic neuropathy, with long-term current use of insulin ([facility]) Hypertension associated with type 2 diabetes mellitus ([facility]) Mixed diabetic hyperlipidemia associated with type 2 diabetes mellitus ([facility]) Class 3 severe obesity due [...] 50.0-59.9, adult (HCC) documented in this encounter [facility]* Diagnosis Acute nonintractable headache, unspecified headache type- Primary Nausea Nausea alone Acute cystitis without hematuria Hyperglycemia Other abnormal glucose documented in this encounter [facility] Discharge instructions* Attachments The following attachments cannot be sent through Care Everywhere. * Kidney Infection Discharge Instructions (Russian) [facility]* Attachments The following attachments cannot be sent through Care Everywhere. * Acute Cystitis Discharge Instructions (Russian) * Nausea and Vomiting, Adult ED (Russian) documented in this [facility] Discharge instructions* Attachments The following attachments cannot be sent through Care Everywhere. * Upper GI Endoscopy Discharge Instructions (Russian) documented in this [facility] for referral (narrative)No reason for referral information availableWOhioHealth [facility] Hospital Work Phone: Reason for visit Narrative* Imaging (Routine) - Closed Specialty Diagnoses / Procedures Referred By Joe villafuerte Referred To Contact Cardiology Diagnoses PAD (peripheral artery disease) ([facility]) Procedures Vascular US lower extremity arterial PVR Alejandro Mandel, DIRECTOR OF COMMUNITY SERVICES - TELEPHOTO ENGINEER [address] [facility] [address] [place] [address] Phone: tel: fax: Referral ID Status Reason Start Date Expiration Date Visits Re quested Visits Authorized [id number] Closed 02/01/2025 02/01/2026 1 1 [facility] for visit Narrative* Auth/Cert (Routine) Specialty Diagnoses / Procedures Referred By Joe villafuerte Referred To Contact Diagnoses Other fecal abnormalities Personal history of diseases of the blood and blood-forming organs and certain disorders involving the immune mechanism Calculus of gallbladder without cholecystitis without obstruction Body mass index (BMI) 50.0-59.9, adult ([facility]) Procedures IN COLONOSCOPY FLX DX W/COLLJ SPEC WHEN PFRMD IN ESOPHAGOGASTRODUODENOSCOPY TRANSORAL DIAGNOSTIC COLONOSCOPY ESOPHAGOGASTRODUODENOSCOPY, DIAGNOSTIC Farhad Chavez MD [address] [place] [address] Phone: tel: fax: [facility] Endoscopy [address] [place] [address] Phone: tel: Referral ID Status Reason Start Date Expiration Date Visits Re quested Visits Authorized 1 1 [facility] Summary Purpose Family History No Family History Records FoundNo Family History Records FoundNo Family History Records FoundNo Family History Records FoundNo Family History Records FoundNo Family History Records FoundNo Family History Records FoundNo Family History Records FoundNo Family History Records Found Advance Directives Documents on File Type Date Recorded Patient Multimedia Producer Expl anation DNR (Do Not Resuscitate) 09/17/2020 [...] Agent Relationshi p Communication Jovana Quesada (POA) [facility] Agent Documents on File Type Date Recorded Patient Multimedia Producer Expl anation Advance Directives and Living Will Power of Decorating Inspector Latest Code Status on File Code Status Date Activated Date Inactivated Comments Full Code 06/14/2019 6:51 PM 06/20/2019 9:23 PM Full Code 05/16/2019 6:59 PM 05/20/2019 11:51 PM Full Code 05/16/2019 8:10 AM 05/16/2019 9:40 AM Full Code 05/16/2019 6:16 AM 05/16/2019 8:09 AM Full Code 01/11/2019 10:40 PM 01/17/2019 5:31 PM Documents on File Type Date Recorded Patient Multimedia Producer Expl anation ACP-Advance Directive ACP-Power of Decorating Inspector Latest Code Status on File Code Status Date Activated Date Inactivated Comments Full Code 09/18/2020 1:15 AM Full Code 06/14/2019 6:51 PM 06/20/2019 9:23 PM Documents on File Type Date Recorded Patient Multimedia Producer Expl anation ACP-Advance Directive ACP-Power of Decorating Inspector DNR Documentation 10/01/2020 12:28 PM Latest Code [...] Documents on File Type Date Recorded Patient Multimedia Producer Expl anation DNR (Do Not Resuscitate) 09/17/2020 [...] Agent Relationshi p Communication Jovana Quesada (POA) [facility] Health Care Agent Documents on File Type Date Recorded Patient Multimedia Producer Expl anation DNR (Do Not Resuscitate) 10/24/2024 12:44 PM DNR (Do Not Resuscitate) 09/17/2020 Healthcare Agents on File Name Relationship Healthcare Agent Relationshi p Communication Jovana Quesada (POA) [facility] Health Care Agent Documents on File Type Date Recorded Patient Multimedia Producer Expl anation DNR (Do Not Resuscitate) 2024 1:55 PM DNR (Do Not Resuscitate) 10/24/2024 12:44 PM DNR (Do Not Resuscitate) 09/17/2020 Documents on File Type Date Recorded Patient Multimedia Producer Expl anation DNR (Do Not Resuscitate) 2024 [...] Agent Relationshi p Communication Jovana Quesada (POA) [facility] Health Care Agent Healthcare Agents on File Name Relationship Healthcare Agent Relationshi p Communication Jovana Quesada (POA) [facility] Health Care Agent Healthcare Agents on File Name Relationship Healthcare Agent Relationshi p Communication Jovana Quesada (POA) [facility] Agent Date Activated Date Inactivated [...] Agent Relationshi p Communication Jovana Quesada (POA) [facility] Documents on File Type Date Recorded Patient Multimedia Producer Expl anation DNR (Do Not Resuscitate) 12/04/2024 9:54 AM DNR (Do Not Resuscitate) 2024 1:55 PM DNR (Do Not Resuscitate) 10/24/2024 12:44 PM DNR (Do Not Resuscitate) 09/17/2020 Date Activated Date Inactivated Comments 11/30/2024 9:10 PM 12/01/2024 7:42 PM Healthcare Agents on File Name Relationship [facility] Jovana Quesada (POA) [facility] Health Care Agent Documents on File Type Date Recorded Patient Multimedia Producer Expl anation DNR (Do Not Resuscitate) 12/04/2024 [...] Jovana Quesada (POA) [facility] Care Agent Discharge Instructions * Attachments The following attachments cannot be sent through Care Everywhere. * Post-op Infection (Russian) documented in this encounter* Instructions* Eva Awan RN - 01/02/2020 U500 Insulin: The physician managing your U500 insulin should give specific recommendations before your surgery. Please call the managing physician's office if you do not already have instructionsin regards to your insulin. Please bring your [employer] Surgical Information folder on the day of [...] sent through Care Everywhere. * Hysteroscopy: Pre-op (Russian) * levonorgestrel intrauterine system (Russian) documented in this encounter* Discharge Instr - [...] Hospital Unit/Room#: 268/2681 Discharging Unit Phone Number: [phone] Emergency Contact: Extended Emergency Contact Information Primary Emergency Contact: Apoorva Lubin [facility] Mobile Relation: Other Secondary Emergency Contact: [...] List Diagnosis Code Cellulitis L03.90 Chronic osteomyelitis ([facility]) M86.60 Uncontrolled type 2 diabetes mellitus with complication ([facility]) E11.8, E11.65 Type 2 diabetes mellitus with hyperglycemia, with long-term current use of insulin ([facility]) E11.65, Z79.4 Class 3 severe obesity due to excess calories with serious comorbidity and body mass index (BMI) of50.0 to 59.9 in adult ([facility]) E66.01, Z68.43 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 ([facility]) E11.51 Cellulitis and abscess of lower extremity L03.119, L02.419 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 Chronic acquired lymphedema I89.0 Left leg cellulitis L03.116 Class 3 severe obesity due to excess calories with serious comorbidity and body mass index (BMI) of60.0 to 69.9 in adult ([facility]) E66.01, Z68.44 Post-menopausal bleeding N95.0 Hyperglycemia R73.9 Diabetic foot infection ([facility]) E11.628, L08.9 S/P AKA (above knee amputation) unilateral, right ([facility]) Z89.611 Morbid obesity ([facility]) E66.01 Ileus ([facility]) K56.7 Isolation/Infection: Isolation Contact Patient [...] Dependent Dressing Dependent Toileting Dependent Feeding Assisted Flask Maker Assisted Med Delivery none Wound Care Documentation [...] Readmission: 0 Discharging to Facility/ Agency Name: [facility] Address: [address] [place] [address] Dialysis Facility (if applicable) Name: Address: Dialysis Schedule: Phone: Fax: Gusset Maker/Pipe Buffer signature: at11:40 AM EST PHYSICIAN SECTION Prognosis: Fair Condition at Discharge: Stable Rehab Potential (if transferring to Rehab): Fair Recommended Labs or Other Treatments After Discharge: none Physician Certification: I certify the above information and transfer of Will Jacinto is necessary for the continuing treatment of the diagnosis listed and that he requires Assisted Facility for greater 30 days. Update Admission H&P: No change in H&P PHYSICIAN SIGNATURE: * Additional Instructions* Анна Villela MD - 09/30/2020 Please fax BG logs to Dr. Lee at [phone] in 2 weeks. documented in this encounter* [...] Agent's Name Healthcare Agent's Phone Number 11/22/20 9039 No, patient does not have an advance directive for healthcare treatment -- -- -- -- -- Admitting Physician: Art Stapleton MD PCP: Jared Guzman MD Discharging Nurse: Bishnu [facility] Hospital Unit/Room#: 158/1581 Discharging Unit Emergency Contact: Extended Emergency Contact Information Primary Emergency Contact: TristianApoorva [facility] Mobile Relation: Other Secondary Emergency Contact: Jovana Quesada Relation: Niece/Nephew Past Surgical History: Past Surgical History: Procedure Laterality Date ABOVE KNEE AMPUTATION Right 06/16/2019 ABSCESS DRAINAGE Right 09/09/2018 FOOT; [facility] DILATION AND CURETTAGE OF UTERUS 05/18/2019 ENDOSCOPY, COLON, DIAGNOSTIC 09/19/[address] Hyde WISDOM TOOTH EXTRACTION Immunization History: Immunization History Administered Date(s) Administered Influenza, Quadv, 6 mo and older, IM, PF (Flulaval, Fluarix) 01/14/2019 Active Problems: Patient Active Problem List Diagnosis Code Cellulitis L03.90 Chronic osteomyelitis ([facility]) M86.60 Uncontrolled type 2 diabetes mellitus with complication ([facility]) E11.8, E11.65 Type 2 diabetes mellitus with hyperglycemia, with long-term current use of insulin ([facility]) E11.65, Z79.4 Class 3 severe obesity due to excess calories with serious comorbidity and body mass index (BMI) of50.0 to 59.9 in adult ([facility]) E66.01, Z68.43 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 ([facility]) E11.51 Cellulitis and abscess of lower extremity L03.119, L02.419 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 Chronic acquired lymphedema I89.0 Left leg cellulitis L03.116 Class 3 severe obesity due to excess calories with serious comorbidity and body mass index (BMI) of60.0 to 69.9 in adult ([facility]) E66.01, Z68.44 Post-menopausal bleeding N95.0 Hyperglycemia R73.9 Diabetic foot infection ([facility]) E11.628, L08.9 S/P AKA (above knee amputation) unilateral, right ([facility]) Z89.611 Morbid obesity ([facility]) E66.01 Ileus ([facility]) K56.7 Nausea and vomiting R11.2 Esophagitis K20.90 Hypertension I10 Diabetic hyperosmolar non-ketotic state ([facility]) E11.00 Isolation/Infection: Isolation Contact Patient [...] Assisted Dressing Assisted Toileting Assisted Feeding Assisted Flask Maker Assisted Med Delivery whole Wound Care Documentation [...] Discharging to Facility/ Agency Name: [facility] (aka [facility]) Address: [address] [place], [place] [address] [address] [facility] (if applicable) Name: Address: Dialysis Schedule: Phone: Fax: Gusset Maker/Pipe Buffer signature: PHYSICIAN SECTION Prognosis: Good Condition at Discharge: Stable Rehab Potential (if transferring to Rehab): Good Recommended Labs or Other Treatments After Discharge: Physician Certification: I certify the above information and transfer of Will Jacinto is necessary for the continuing treatment of the diagnosis listed and that he requires Assisted Facility for less 30 days. 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 Chronic acquired lymphedema I89.0 Left leg cellulitis L03.116 Class 3 severe obesity due to excess calories with serious comorbidity and body mass index (BMI) of60.0 to 69.9 in adult ([facility]) E66.01, Z68.44 Post-menopausal bleeding N95.0 Hyperglycemia R73.9 Diabetic foot infection ([facility]) E11.628, L08.9 Isolation/Infection: Isolation Contact [...] (171.5 kg) Mental Status: {IP PT MENTAL STATUS:15960} IV Access: {[facility] IV ACCESS:[id number]} Nursing Mobility/ADLs: Walking Assisted Transfer Assisted Bathing Assisted Dressing Assisted Toileting Assisted Feeding Assisted Flask Maker Independent Med Delivery whole Wound Care Documentation [...] (for information only, NOT a DME order): {EQUIPMENT:[id number]} Other Treatments: Patient's personal belongings (please select all that are sent with patient): None RN SIGNATURE: MANAGEMENT/SOCIAL WORK SECTION Inpatient Status Date: 06/14/19 Readmission Risk Assessment Score: Readmission Risk Risk of Unplanned Readmission: 28 Discharging to Facility/ Agency Name: [facility] Address:[address] [place] [address] Dialysis Facility (if applicable) Name: Address: Dialysis Schedule: Phone: Fax: Gusset Maker/Pipe Buffer signature: {Esignature:[id number]} ICIAN SECTION Prognosis: Good Condition at Discharge: Stable Rehab Potential (if transferring to Rehab): Good Recommended Labs or Other Treatments After Discharge: Physician Certification: I certify the above information and transfer of Will Jacinto is necessary for the continuing treatment of the diagnosis listed and that he requires Assisted Facility for greater 30 days. Update Admission H&P: No change in H&P PHYSICIAN SIGNATURE: * Additional Instructions* Jarek Katz MD - 06/16/2019 Ibacb-kmk-Koto Leg Amputation: What to Expect at Home Your Recovery An njjpg-emv-emvp amputation is surgery to remove your leg above the knee. Your doctor removed the leg while keeping as much healthy bone, skin, blood vessel, and nerve tissue as possible. After an kignh-dvh-iicf leg amputation, you will probably have bandages, [...] your doctor if you can take an qdkm-mqh-zvxkzcf medicine. If you think your pain medicine [...] Where can you learn more? Go to [email or web address] and sign in to your [employer] account. Enter K761 in the Search Health Information box to learn more about Gveii-tny-Darn Leg Amputation: What to Expect at Home. If you do not have an account, please click on the "Sign Up Now" link. Current as of: July 28, 2018 Content Version: 12.20050365-0328 [employer]. Care instructions adapted under license by [employer]. If youhave questions about a medical condition or this instruction, always ask your healthcare professional. [employer] disclaims any warranty or liability for your [...] Infection (chronic) of amputation stump Diagnosis Ileus (HCC) Paralytic ileus Nausea and vomiting, intractability of vomiting not specified, unspecified vomiting type Generalized abdominal pain Abdominal pain, generalized Esophagitis Esophagitis, unspecified Chronic osteomyelitis (HCC) Chronic osteomyelitis, site unspecified 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 (HCC) Type 2 diabetes mellitus with hyperglycemia, with long-term current use of insulin ([facility]) Class 3 severe obesity due [...] AKA (above knee amputation) unilateral, right (HCC) History of Present Illness * Padma Ibarra MA - 01/02/2020 11:30 AM EST Labs obtained on 1st attempt with 22 gauge needle at [facility] site. Patient tolerated well, site benign. documented in this encounter* Valeria Calzada RN - 09/30/2020 6:43 PM EST Called report to Ninfa GUILLORY at [place]. marketing support coordinator is scheduled for 7:30PM Valeria Calzada * [...] Consult: Joann PCP: Jared Guzman MD Outpt Ctc Operator: yes, JEROME Lee/Kedar ASSESSMENT: T2DM uncontrolled with [...] standpoint: Yes Home Going Endocrine Rx Recommendations-- U103qms 160-110-150 units TID before meals Outpt Follow [...] units TID AC meals 08/28/20 Carito Thacker, DIRECTOR OF COMMUNITY SERVICES - TELEPHOTO ENGINEER acetaminophen (TYLENOL) 325 MG tablet Take 650 [...] Take 1 tablet by mouth daily Historical ProviderMD aspirin 81 MG tablet Take 81 mg [...] the date of this note. * Nabil Hill, - 09/30/2020 11:43 AM EST Hospitalist Progress [...] 09/30/2020 10:07 AM EST Physical Therapy Facility/Department: [facility] 2E TELEMETRY Daily Treatment Note NAME: Will Jacinto : 1965 Date of Service: 09/30/2020 Chart review completed. Pt declined therapy this day. Pt stated that he wasn't felling up it and wanted to rest. This SECTION HAND encouraged pt to participate, pt still declined. I will re-attempt as schedule permits. Juwan Canales, SECTION HAND * Valeria Calzada RN - 09/30/2020 9:39 AM EST 09/30/20 9:30 AM [phone] From: Valeria Calzada RE: WILL JACINTO 1965 Location: [facility] RM: [id number] is NPO for a procedure today. BS is 257, he is supposed to get 145u of the U-500. Would you likeme to still give? or hold with NPO status? Thank you Callback Required: NO CALLBACK REQ 2 East ROUTINE Read 9:36 AM 09/30/20 9:37 AM Can give half dose. I will order 75 units. Thanks Valeria Calzada * Jagdeep Grace MD - 09/30/2020 8:40 AM EST Progress Note Date:09/30/2020 Room:260260 Patient Name:Will Jacinto Date of :1965 Age:54 [...] PATIENT NAME: Will Jacinto DATE: 09/30/2020 PAGER: [phone] * Jagdeep Grace MD - 09/29/2020 1:00 PM EST Progress Note Date:09/29/2020 Room:260/260 Patient Name:Will Jacinto Date of :1965 Age:54 [...] PATIENT NAME: Will Jacinto DATE: 09/29/2020 PAGER: [phone] * Deborah Jha OTA - 09/29/2020 12:33 PM EST Occupational Therapy Facility/Department: [facility] TELEMETRY Daily Treatment Note NAME: Will Jacinto [...] ileus. PMH listed and significant for R AVINASH. Assistance / Modification: MOD to MAX ASSIST [...] obese (HCC), Osteomyelitis (HCC), Osteomyelitis (HCC), Schizophrenia ([facility]), Sleep apnea, and Venous insufficiency. has a past surgical history that includes Abscess Drainage (Right, 09/09/2018); [place] tooth extraction; Dilation and curettage of uterus [...] Dinner Asuncion Garibay DO 135 Units at 09/28/20 1829 promethazine (PHENERGAN) injection 25 mg 25 mg Intramuscular Q6H PRN Art Stapleton MD 25 mg at 09/29/20 0333 morphine (PF) injection 4 mg 4 mg Intravenous Q6H PRN Kylah David MD 4 mg at 09/29/20 0333 metoprolol (LOPRESSOR) injection 5 mg 5 mg Intravenous Q6H PRN Priyank Rios MD 5 mg at 09/21/201819 pantoprazole (PROTONIX) injection 40 mg 40 mg Intravenous BID Sergio Sibley, DO 40 mg at 09/29/2024 And sodium chloride (PF) 0.9 % injection 10 mL 10 mL Intravenous BID Sergio Sibley, DO 10 mL at 09/28/202136 lactobacillus (CULTURELLE) capsule 1 capsule 1 capsule Oral Daily Nabil M Esterle, DO 1 capsule at 09/28/20956 ARIPiprazole (ABILIFY) tablet 10 mg 10 mg [...] tablet 325 mg 325 mg Oral BID Nabil M Esterle, DO 325 mg at [...] Nabil M Esterle, DO 80 mg at 11/22/20 0925 therapeutic multivitamin-minerals 1 tablet 1 tablet Oral [...] Nabil M Esterle, DO 40 mg at 09/29/20 09 glucose (GLUTOSE) 40 % oral gel 15 [...] reglan and soft diet 2. * Asuncion Garibay, DO - 09/29/2020 9:00 AM EST Department of Internal Medicine Division of Endocrinology, Diabetes, & Metabolism Endocrinology Progress Note Patient Name: Will Jacinto : 1965 AGE: 54 y.o. Room/Bed: [address] [place] [address] Admission Date: 09/17/2020 7:46 PM Consult Date: 09/18/20 Visit Date: 09/29/2020 Reason for Endocrine Consult: DM mgmt Provider/Team Requesting Consult: Joann PCP: Jared Guzman MD Outpt Ctc Operator: yes, JEROME Lee/Kedar ASSESSMENT: T2DM uncontrolled with [...] 60 gram limit no juice w/ trays Ctc Operator On-Call: AGAPITO Preferred Method of Communication/Reaching: ReactX. The above physician should be paged w/ questions/concerns about items being managed by Endocrinology Team. If there are any questions or concerns related to the info in this progress note please page the oncall pre owned sales consultant directly. On-Call information can be found in the [facility] Online Directory. We can also be reached by ReactX communication system. We appreciate the opportunity to participate in this pt's ongoing medical care. ANTICIPATED ENDOCRINE HOME GOING RECOMMENDATIONS: Optimized for Discharge from Endocrine standpoint: Yes Home Going Endocrine Rx Recommendations-- Current hosp D482mee insulin doses. Outpt Follow Up-- As scheduled. [...] units TID AC meals 08/28/20 Carito Thacker, DIRECTOR OF COMMUNITY SERVICES - TELEPHOTO ENGINEER acetaminophen (TYLENOL) 325 MG tablet Take 650 [...] Ordering Physician DO HILL LISA Accession Number [id number] CPT4 Codes 17398 () Reason For Exam ileus Report Clinical [...] Onl Ordering Physician ART OWEN Accession Number [id number] CPT4 Codes 79917 (CT Abdomen/Pelvis w/ IV Contrast (IV Onl), Q9967 (CT ISOVUE 370MG/ML&[id number]&ML&1) Reason For Exam abd pain/tenderness Report CT [...] 09/28/2020 1:09 PM EST Progress Note Date:09/28/2020 Room:260260 Patient Name:Will Jacinto Date of :1965 Age:54 [...] PATIENT NAME: Will Jacinto DATE: 09/28/2020 PAGER: [phone] * Chris Muniz MD - 09/28/2020 9:18 [...] Units 145 Units Subcutaneous QAM AC Asuncion Garibay, DO dilTIAZem (CARDIZEM CD) extended release capsule [...] BID Sergio Sibley DO 40 mg at 09/27/202002 And sodium chloride (PF) 0.9 % injection 10 mL 10 mL Intravenous BID Sergio Sibley DO 10 mL at 09/27/202003 lactobacillus (CULTURELLE) capsule 1 capsule 1 capsule Oral Daily Nabil M Esterle, DO 1 capsule at 09/27/20 0758 ARIPiprazole (ABILIFY) tablet 10 mg 10 mg Oral Daily Nabil M Esterle, DO 10 mg at 09/27/20 0757 aspirin chewable tablet 81 mg 81 mg Oral Daily Nbail M Esterle, DO 81 mg at 09/27/20 [...] kg/m Physical Exam Not indistress Lungs clear odci8w2 abodmen obese non tender CBC: Recent Labs [...] Jacinto : 1965 AGE: 54 y.o. Room/Bed: [address] [place] [address] Admission Date: 09/17/2020 7:46 PM Consult Date: 09/18/20 Visit Date: 09/28/2020 Reason for Endocrine Consult: DM mgmt Provider/Team Requesting Consult: Joann PCP: Jared Guzman MD Outpt Ctc Operator: yes, JEROME Lee/Kedar ASSESSMENT: T2DM uncontrolled with [...] 60 gram limit no juice w/ trays Ctc Operator On-Call: AGAPITO Preferred Method of Communication/Reaching: PerfectServe. The above physician should be paged w/ questions/concerns about items being managed by Endocrinology Team. If there are any questions or concerns related to the info in this progress note please page the oncall pre owned sales consultant directly. On-Call information can be found in the [facility] Online Directory. We can also be reached by ReactX communication system. We appreciate the opportunity to participate in this pt's ongoing medical care. ANTICIPATED ENDOCRINE HOME GOING RECOMMENDATIONS: Optimized for Discharge from Endocrine standpoint: Yes Home Going Endocrine Rx Recommendations-- Current hosp [id number] insulin doses. Outpt Follow Up-- As scheduled. [...] output data in the 24 hours ending 09/28/20904 Diet: Dietary Nutrition Supplements: Low Calorie High [...] units TID AC meals 08/28/20 Carito Thacker, DIRECTOR OF COMMUNITY SERVICES - TELEPHOTO ENGINEER acetaminophen (TYLENOL) 325 MG tablet Take 650 [...] ointment Apply topically as needed. 01/17/19 Dom Belrtan MD FLUoxetine (PROZAC) 20 MG capsule Take [...] Ordering Physician DO HILL LISA Accession Number [id number] CPT4 Codes 60257 () Reason For Exam ileus Report Clinical [...] Onl Ordering Physician ART OWEN Accession Number [id number] CPT4 Codes 92668 (CT Abdomen/Pelvis w/ IV Contrast (IV Onl), Q9967 (CT ISOVUE 370MG/ML&[id number]&ML&1) Reason For Exam abd pain/tenderness Report CT [...] on the date of this note. * Lucia Michelle, SECTION HAND - 09/27/2020 3:13 PM EST Physical Therapy Facility/Department: [facility] TELE[facility] Daily Treatment Note NAME: Will Jacinto [...] Diagnosis(es): The primary encounter diagnosis was Ileus ([facility]). Diagnoses of Nausea and vomiting, [...] obese (HCC), Osteomyelitis (HCC), Osteomyelitis (HCC), Schizophrenia ([facility]), Sleep apnea, and Venous insufficiency. has a past surgical history that includes Abscess Drainage (Right, 09/09/2018); [place] tooth extraction; Dilation and curettage of uterus [...] problems. * ART STAPLETON, MDProgress Note Date:09/27/2020 Room:[address] [place] [address] Patient Name:Will Jacinto Date of :1965 Age:54 [...] Consult: Joann PCP: Jared Guzman MD Outpt Ctc Operator: yes, JEROME Lee/Kedar ASSESSMENT: T2DM uncontrolled with [...] Home Going Endocrine Rx Recommendations-- Current hosp A271gmp insulin doses Outpt Follow Up-- As scheduled [...] data in the 24 hours ending 09/27/20 1449 Diet: Dietary Nutrition Supplements: Low Calorie High [...] units TID AC meals 08/28/20 Carito Thacker, DIRECTOR OF COMMUNITY SERVICES - TELEPHOTO ENGINEER acetaminophen (TYLENOL) 325 MG tablet Take 650 [...] CREATININE 1.13 GLUCOSE 207* Glucose: Recent Labs 09/25/205 09/26/20 0730 09/26/20 0745 09/26/20 1137 09/26/20 [...] AC Asuncion Garibay, DO 140 Units at 09/26/20 0945 insulin regular human (humuLIN R U-500 KWIKPEN) 500 UNIT/ML concentrated injection pen 110 Units 110 Units Subcutaneous Daily before lunch Asuncion Garibay, DO 110 Units at 09/27/20 1128 insulin regular human (humuLIN R U-500 KWIKPEN) 500 UNIT/ML concentrated injection pen 135 Units 135 Units Subcutaneous Dinner Asuncion Garibay DO 135 Units at 09/26/20 1855 promethazine [...] M Esterle, DO 10 mg at 09/27/20 075 aspirin chewable tablet 81 mg 81 mg Oral Daily Nabil M Esterle, DO 81 mg at 09/27/20 075 benzonatate (TESSALON) capsule 200 mg 200 mg [...] M Esterle, DO 10 mg at 09/27/20 075 ferrous sulfate (IRON 325) tablet 325 mg 325 mg Oral BID WC Nabil M Esterle, DO 325 mg at 09/27/20 0757 FLUoxetine (PROZAC) capsule 40 mg 40 mg Oral Daily Nabil M Esterle, DO 40 mg at 09/27/20 075 furosemide (LASIX) tablet 80 mg 80 mg Oral Daily Nabil M Esterle, DO 80 mg at 09/27/20 0757 lisinopril (PRINIVIL;ZESTRIL) tablet 40 mg 40 mg Oral Daily Nabil M Esterle, DO 40 mg at 09/27/20 075 megestrol (MEGACE) tablet 80 mg 80 mg Oral BID Nabil M Esterle, DO 80 mg at 09/27/20 0756 therapeutic multivitamin-minerals 1 tablet 1 tablet Oral Daily Nabil M Esterle, DO 1 tablet at 09/27/20 075 atorvastatin (LIPITOR) tablet 20 mg 20 mg [...] : GIB No Renal : CKD No FPGA ENGINEER : CVA/TIA No Musculoskeletal system : DJD [...] problems. * NABIL HILL DO * Fernanda Chappell RD, LD - 09/26/2020 1:38 PM EST Comprehensive [...] Accumulation: 7 - Moderate to Severe Extremities Signal Maintenance Technician Strength: Not Performed Estimated Daily Nutrient Needs: Energy (kcal): 1745-5418; Weight Used for Energy Requirements: Adjusted(IBW) Protein [...] Usual Body Weight: 340 lb (154.2 kg)(01/02/20) [place] Body Weight: 130 lbs; % [place] Body Weight 263.8 % BMI: 55.4 Adjusted [...] Discharge Planning: Too soon to determine Contact: *[id number] * Chris Muniz MD - 09/26/2020 11:24 [...] AC Asuncion Garibay, DO 140 Units at 09/26/20 0945 insulin regular human (humuLIN R U-500 KWIKPEN) 500 UNIT/ML concentrated injection pen 110 Units 110 Units Subcutaneous Daily before lunch Asuncion Garibay, DO 110 Units at 09/25/20 1400 insulin regular human (humuLIN R U-500 KWIKPEN) 500 UNIT/ML concentrated injection pen 135 Units 135 Units Subcutaneous Dinner Asuncion Garibay DO 135 Units at 09/24/20 1828 promethazine (PHENERGAN) injection 25 mg 25 mg [...] BID Sergio Sibley DO 40 mg at 09/26/20 0938 And [...] : GIB No Renal : CKD No FPGA ENGINEER : CVA/TIA No Musculoskeletal system : DJD [...] Consult: Joann PCP: Jared Guzman MD Outpt Ctc Operator: yes, JEROME Lee/Kedar ASSESSMENT: T2DM uncontrolled with [...] Home Going Endocrine Rx Recommendations-- Current hosp [id number] insulin doses Outpt Follow Up-- As scheduled [...] 156/85 Pulse: 110 103 104 105 Resp: 18 Temp: 97 F (36.1 C) 96.6 F [...] units TID AC meals 08/28/20 Carito Thacker, DIRECTOR OF COMMUNITY SERVICES - TELEPHOTO ENGINEER acetaminophen (TYLENOL) 325 MG tablet Take 650 [...] Dinner Asuncion Garibay DO 135 Units at 09/24/20 1828 metoclopramide [...] : GIB No Renal : CKD No FPGA ENGINEER : CVA/TIA No Musculoskeletal system : DJD No CARDIAC TESTING EKG: Nsr., pacs Echo: to Follow. Troponin: Stress Test: Cardiac Cath: IMPRESSION : Svt & Ns Vt.>> Stable PLAN : Add cindy. Priyank Rios MD * Анна Villela MD - 09/24/2020 6:16 PM EST Department of Internal Medicine Division of Endocrinology, Diabetes, & Metabolism Endocrinology Progress Note Patient Name: Will Jacinto : 1965 AGE: 54 y.o. Room/Bed: 260/2601 Admission Date: 09/17/2020 7:46 PM Consult Date: 09/18/20 Visit Date: 09/24/2020 Reason for Endocrine Consult: DM mgmt Provider/Team Requesting Consult: Joann PCP: Jared Guzman MD Outpt Ctc Operator: yes, JEROME Lee/Kedar ASSESSMENT: T2DM uncontrolled with [...] Home Going Endocrine Rx Recommendations-- Current hosp [id number] insulin doses Outpt Follow Up-- As scheduled [...] was 1 week ago Denies CP/SOB BG 110237-187 today ROS negative except for those mentioned [...] AC meals 08/28/20 Carito Thacker APRN - TELEPHOTO ENGINEER acetaminophen (TYLENOL) 325 MG tablet Take 650 [...] Dinner Asuncion Garibay DO 135 Units at 09/23/20 1737 metoclopramide [...] injection 40 mg 40 mg Intravenous BID eSrgio Sibley, DO 40 mg at 09/24/20823 And sodium chloride (PF) 0.9 % injection 10 mL 10 mL Intravenous BID Sergio Sibley, DO 10 mL at 09/24/2024 lactobacillus (CULTURELLE) capsule 1 capsule 1 capsule Oral Daily Nabil M Esterle, DO 1 capsule at 09/24/20823 ARIPiprazole (ABILIFY) tablet 10 mg 10 mg Oral Daily Nabil M Esterle, DO 10 mg at 09/24/20822 aspirin chewable tablet 81 mg 81 mg Oral Daily Nabil M Esterle, DO 81 mg at 09/24/20822 benzonatate (TESSALON) capsule 200 mg 200 mg [...] Nabil M Esterle, DO 325 mg at 09/24/2024 FLUoxetine (PROZAC) capsule 40 mg 40 mg Oral Daily Nabil M Esterle, DO 40 mg at 09/24/20822 furosemide (LASIX) tablet 80 mg 80 mg Oral Daily Nabil M Esterle, DO 80 mg at 09/24/2023 lisinopril (PRINIVIL;ZESTRIL) tablet 40 mg 40 mg Oral Daily Nabil M Esterle, DO 40 mg at 09/24/20822 megestrol (MEGACE) tablet 80 mg 80 mg Oral BID Nabil M Esterle, DO 80 mg at 09/24/20 0824 therapeutic multivitamin-minerals 1 tablet 1 tablet Oral Daily Nabil M Esterle, DO 1 tablet at 09/24/20 0824 atorvastatin (LIPITOR) tablet 20 mg 20 mg Oral Daily Nabil M Esterle, DO 20 mg at 11/17/20 0824 tiZANidine (ZANAFLEX) tablet 4 mg 4 [...] M Esterle, DO OBJECTIVE VITALS: BP (!) 145/84 Pulse 97 [...] consistent. consider stool diary? * Nabil Hill, DO - 09/24/2020 2:57 PM EST Hospitalist Progress [...] problems. * ART STAPLETON, MDProgress Note Date:09/23/2020 Room:260260 Patient Name:Will Jacinto Date of :1965 Age:54 [...] Physician MD DAVID RICHARD H Accession Number [id number] CPT4 Codes 67575 () Reason For Exam ileus, improving Report [...] Physician MD DAVID RICHARD H Accession Number [id number] CPT4 Codes 43225 () Reason For Exam ileus Report ABDOMEN: [...] Yes Assessment & Plan * Fernanda Chappell, RD, LD - 09/23/2020 11:16 AM EST Comprehensive [...] Accumulation: 7 - Moderate to Severe Extremities Signal Maintenance Technician Strength: Not Performed Estimated Daily Nutrient Needs: Energy (kcal): 8777-9747; Weight Used for Energy Requirements: Adjusted(IBW) Protein [...] Usual Body Weight: 340 lb (154.2 kg)(01/02/20) [place] Body Weight: 130 lbs; % [place] Body Weight 263.8 % BMI: 55.4 Adjusted [...] Discharge Planning: Too soon to determine Contact: *[id number] * Gayle Hanna MD - 09/23/2020 11:12 [...] Units Subcutaneous QAM AC Asuncion Garibay, DO insulin regular human (humuLIN R U-500 KWIKPEN) 500 UNIT/ML concentrated injection pen 110 Units 110 Units Subcutaneous Daily before lunch Asuncion Garibay, DO insulin regular human (humuLIN R U-500 [...] BID Sergio Sibley, DO 40 mg at 09/23/20 0809 And [...] PLT 474* 454* HEPATIC: Recent Labs 09/22/20 0602 09/23/20 0120 AST [...] 09/23/2020 11:12 AM EST Physical Therapy Facility/Department: [facility] TELEMETRY Daily Treatment Note NAME: Will Jacinto [...] history that includes Abscess Drainage (Right, 09/09/2018); [place] tooth extraction; Dilation and curettage of uterus [...] Time Individual Concurrent Group Co-treatment Time In 911 Time Out 921 Minutes 10 Timed Code Treatment Minutes: 10 Minutes(ther act) Carito Ruelas PT, DPT * Althea Hancock, OT - 09/23/2020 10:00 AM EST Occupational Therapy Facility/Department: [facility] 2E TELEMETRY Daily Treatment Note NAME: Will [...] deficits and progress toward safe dc back toL facility. Prognosis: Fair Decision Making: Medium Complexity History: Pt is 54yo male presenting with ileus. PMH listed and significant for Jamilah DA SILVA. Exam: AM PAC Assistance / Modification: MOD [...] history that includes Abscess Drainage (Right, 09/09/2018); [place] tooth extraction; Dilation and curettage of uterus [...] ADL Inpatient CMS G-Code Modifier : CK (09/18/20 0953) Goals Short term goals Time Frame for [...] Jacinto : 1965 AGE: 54 y.o. Room/Bed: [address] [place] [address] Admission Date: 09/17/2020 7:46 PM Consult Date: 09/18/20 Visit Date: 09/23/2020 Reason for Endocrine Consult: DM mgmt Provider/Team Requesting Consult: Joann PCP: Jared Guzman MD Outpt Ctc Operator: jigar, JEROME Lee/Kedar ASSESSMENT: T2DM uncontrolled with hyperglycemia [...] 60 gram limit no juice w/ trays Ctc Operator On-Call: AGAPITO Preferred Method of Communication/Reaching: ReactX. The above physician should be paged w/ questions/concerns about items being managed by Endocrinology Team. If there are any questions or concerns related to the info in this progress note please page the oncall pre owned sales consultant directly. On-Call information can be found in the [facility] Directory. We can also be reached by ReactX communication system. We appreciate the opportunity to participate in this pt's ongoing medical care. ANTICIPATED ENDOCRINE HOME GOING RECOMMENDATIONS: Optimized for Discharge from Endocrine standpoint: No Home Going Endocrine Rx Recommendations-- Current hosp [id number] insulin doses. Outpt Follow Up-- As scheduled. [...] units TID AC meals 08/28/20 Carito Thacker, DIRECTOR OF COMMUNITY SERVICES - TELEPHOTO ENGINEER acetaminophen (TYLENOL) 325 MG tablet Take 650 [...] Ordering Physician DO HILL LISA Accession Number [id number] CPT4 Codes 99277 () Reason For Exam ileus Report Clinical [...] w/ IV Contrast (IV Onl Ordering Physician [id number] DURHAM Accession Number [id number] CPT4 Codes 83938 (CT Abdomen/Pelvis w/ IV Contrast (IV Onl), Q9967 (CT ISOVUE 370MG/ML&[id number]&ML&1) Reason For Exam abd pain/tenderness Report CT [...] to discontinue it. I spoke with the nutrition partner and re-invited him to continue to care [...] Consult: Joann PCP: Jared Guzman MD Outpt Ctc Operator: yes, JEROME Lee/Kedar ASSESSMENT: T2DM uncontrolled with [...] 60 gram limit no juice w/ trays Ctc Operator On-Call: AGAPITO Preferred Method of Communication/Reaching: PerfectServe. The above physician should be paged w/ questions/concerns about items being managed by Endocrinology Team. If there are any questions or concerns related to the info in this CONSULTATION please page the shoe salesperson pre owned sales consultant directly. On-Call information can be found in the [facility] Online Directory. We can also be reached by ReactX communication system. We appreciate the opportunity to participate in this pt's ongoing medical care. ANTICIPATED ENDOCRINE HOME GOING RECOMMENDATIONS: Optimized for Discharge from Endocrine standpoint: No Home Going Endocrine Rx Recommendations-- Current hosp [id number] insulin doses. Outpt Follow Up-- As scheduled. [...] pen 280 units TID AC meals 08/28/20 Cairto Thacker, DIRECTOR OF COMMUNITY SERVICES - TELEPHOTO ENGINEER acetaminophen (TYLENOL) 325 MG tablet Take 650 [...] 09/20/20 2037 09/21/20 0655 09/21/20 1654 09/21/20 20209/22/20 0809 POCGLU 283* 352* 192* 129* 138* [...] Ordering Physician DO HILL LISA Accession Number [id number] CPT4 Codes 75648 () Reason For Exam ileus Report Clinical [...] w/ IV Contrast (IV Onl Ordering Physician [id number] SHEIKH Accession Number [id number] CPT4 Codes 19032 (CT Abdomen/Pelvis w/ IV Contrast (IV Onl), Q9967 (CT ISOVUE 370MG/ML&[id number]&ML&1) Reason For Exam abd pain/tenderness Report CT [...] the date of this note. * Asuncion Valencia, JEREMY - TELEPHOTO ENGINEER - 09/22/2020 8:31 AM EST GENERAL SURGERY [...] willingness to proceed with plan. Asuncion Valencia [facility] Personal Pager [phone] [facility] Surgery Pager [phone] during hours 7:30a-4:30p Wednesday-Wednesday After hours, please contact physician shoe salesperson. Associated attestation - Trae Pike MD - 09/22/2020 5:39 PM EST [facility] - Surgery [facility] Physicians Surgery Patient Name: Will Jacinto Date: [...] vial 0-12 Units 0-12 Units Subcutaneous TID WC Art Stapleton MD insulin lispro (HUMALOG) injection vial 0-6 Units 0-6 Units Subcutaneous Nightly Art Stapleton MD pantoprazole (PROTONIX) injection 40 mg 40 mg Intravenous BID Segrio Sibley, DO 40 mg at 09/21/20 0859 And sodium chloride (PF) 0.9 % injection 10 mL 10 mL Intravenous BID Sergio Sibley DO 10 mL at 09/21/20 0903 lactobacillus (CULTURELLE) capsule 1 capsule 1 capsule Oral Daily Nabil M Esterle, DO 1 capsule at 09/21/20 0903 ARIPiprazole [...] Naibl M Esterle, DO 40 mg at 09/21/20 [...] Nabil M Esterle, DO 12.5 mg at Or ondansetron (ZOFRAN) injection 4 mg 4 [...] reviewed with the patient. CBC: Recent Labs 09/19/20430 WBC 8.5 HGB 10.6* HCT 32.5* PLT 519* HEPATIC: Recent Labs 09/19/20430 AST 68* ALT 125* BILITOT 0.6 ALKPHOS [...] Jacinto : 1965 AGE: 54 y.o. Room/Bed: 268/2681 Admission Date: 09/17/2020 7:46 PM Consult Date: 09/18/20 Visit Date: 09/21/2020 Reason for Endocrine Consult: DM mgmt Provider/Team Requesting Consult: Joann PCP: Jared Guzman MD Outpt Ctc Operator: yes, JEROME Lee/Kedar ASSESSMENT: T2DM uncontrolled with [...] we can answer any further questions via ReactX. Inpt GMF glucose goal 150. Inpt ICU [...] 60 gram limit no juice w/ trays Ctc Operator On-Call: AGAPITO Preferred Method of Communication/Reaching: [employer]. The above physician should be paged w/ questions/concerns about items being managed by Endocrinology Team. If there are any questions or concerns related to the info in this CONSULTATION please page the shoe salesperson pre owned sales consultant directly. On-Call information can be found in the [facility]. We can also be reached by ReactX communication system. We appreciate the opportunity to [...] units TID AC meals 08/28/20 Carito Thacker, DIRECTOR OF COMMUNITY SERVICES - TELEPHOTO ENGINEER acetaminophen (TYLENOL) 325 MG tablet Take 650 [...] 2046 09/20/20 0811 09/20/20 1302 09/20/20 1757 09/20/207 09/21/20 0655 POCGLU 406* 395* 286* 283* [...] Ordering Physician DO HILL LISA Accession Number [id number] CPT4 Codes 52286 () Reason For Exam ileus Report Clinical [...] Onl Ordering Physician ART OWEN Accession Number [id number] CPT4 Codes 69353 (CT Abdomen/Pelvis w/ IV Contrast (IV Onl), Q9967 (CT ISOVUE 370MG/ML&[id number]&ML&1) Reason For Exam abd pain/tenderness Report CT [...] 395* 259* Recent Labs 09/17/20205309/18/20 0543 09/19/20 043 AST 69* 74* 68* ALT 104* 104* [...] problems. * ART STAPLETON, MDProgress Note Date:09/20/2020 Room:[address] [place] [address] Patient Name:Will Jacinto Date of :1965 Age:54 [...] 1413 Objective Labs/Imaging/Diagnostics Labs: CBC: Recent Labs 09/17/20205309/19/20430 WBC 11.0* 8.5 RBC 3.87 3.67* HGB [...] Ordering Physician DO HILL LISA Accession Number [id number] CPT4 Codes 72645 () Reason For Exam ileus Report EXAMINATION: [...] Physician MD DAVID RICHARD H Accession Number [id number] CPT4 Codes 21750 () Reason For Exam ileus fu Report [...] 09/20/2020 2:09 PM EST Occupational Therapy Facility/Department: [facility] 2E TELEMETRY Daily Treatment Note NAME: Will Gilliam McNarendralidia : 1965 Date of Service: 09/20/2020 Assessment [...] 09/20/2020 10:57 AM EST Physical Therapy Facility/Department: [facility] 2E TELEMETRY Daily Treatment Note NAME: Will Gilliam Ophelia : 1965 Chart review completed. Pt declined therapy this date due to nausea. I will re- attempt as schedule permits. Juwan Trembley, SECTION HAND * Asuncion Garibay, DO - 09/20/2020 8:29 AM EST Department of Internal Medicine Division of Endocrinology, Diabetes, & Metabolism Endocrinology Progress Note Patient Name: Will Jacinto : 1965 AGE: 54 y.o. Room/Bed: [facility] Admission Date: 09/17/2020 7:46 PM Consult Date: 09/18/20 Visit Date: 09/20/2020 Reason for Endocrine Consult: DM mgmt Provider/Team Requesting Consult: Joann PCP: Jared Guzman MD Outpt Ctc Operator: yes, JEROME Lee/Kedar ASSESSMENT: T2DM uncontrolled with [...] 60 gram limit no juice w/ trays Ctc Operator On-Call: AGAPITO Preferred Method of Communication/Reaching: PerfectServe. The above physician should be paged w/ questions/concerns about items being managed by Endocrinology Team. If there are any questions or concerns related to the info in this CONSULTATION please page the shoe salesperson pre owned sales consultant directly. On-Call information can be found in the [facility]. We can also be reached by ReactX communication system. We appreciate the opportunity to [...] units TID AC meals 08/28/20 Carito Thacker, DIRECTOR OF COMMUNITY SERVICES - TELEPHOTO ENGINEER acetaminophen (TYLENOL) 325 MG tablet Take 650 [...] Ordering Physician DO HILL LISA Accession Number [id number] CPT4 Codes 27137 () Reason For Exam ileus Report Clinical [...] radiographic abnormality. Report Dictated on Workstation: [id number] --- Final --- Dictating Physician: MD BARRAGAN HARLAN Signed Date and Time: 09/18/20209:48 am Signed by: MD BARRAGAN HARLAN Transcribed Date and Time: 09/18/2020 10:25 Ct Abdomen Pelvis W Contrast Result Date: 09/17/2020 Patient Name: WILL JACINTO ---CT--- Exam Date/Time 09/17/202022:15:[address] Abdomen/Pelvis w/ IV Contrast (IV Onl Ordering Physician ART OWEN Accession Number [id number] CPT4 Codes 91029 (CT Abdomen/Pelvis w/ IV Contrast (IV Onl), Q9967 (CT ISOVUE 370MG/ML&[id number]&ML&1) Reason For Exam abd pain/tenderness Report CT [...] flush 3 mL Intravenous Q8H Recent Labs 09/17/20205309/19/20430 WBC 11.0* 8.5 HGB 11.4* 10.6* PLT 544* 519* Recent Labs 09/18/2054209/18/20 1402 09/19/20430 NA 138 134* 131* K 5.5* 5.3* 5.8* CL 104 99 99 CO2 26 25 25 BUN 40* 35* 29* CREATININE 0.97 0.99 0.88 GLUCOSE 175* 310* 395* Recent Labs 09/17/20205309/18/2054209/19/201 AST 69* 74* 68* ALT 104* 104* [...] please call Endoscopy at [phone]. Thank You! * Asuncion Garibay DO - 09/19/2020 8:42 AM EST Department of Internal Medicine Division of Endocrinology, Diabetes, & Metabolism Endocrinology Progress Note Patient Name: Will Jacinto : 1965 AGE: 54 y.o. Room/Bed: [address] [place] [address] Admission Date: 09/17/2020 7:46 PM Consult Date: 09/18/20 Visit Date: 09/18/2020 Reason for Endocrine Consult: DM mgmt Provider/Team Requesting Consult: Joann PCP: Jared Guzman MD Outpt Ctc Operator: yes, JEROME Lee/Kedar ASSESSMENT: T2DM uncontrolled with [...] 60 gram limit no juice w/ trays Ctc Operator On-Call: AGAPITO Preferred Method of Communication/Reaching: ReactX. The above physician should be paged w/ questions/concerns about items being managed by Endocrinology Team. If there are any questions or concerns related to the info in this CONSULTATION please page the shoe salesperson pre owned sales consultant directly. On-Call information can be found in the [facility] Online Directory. We can also be reached by ReactX communication system. We appreciate the opportunity to [...] Vitals: 09/18/20 1111 09/18/20 1118 09/18/20 1529 09/18/20 2031 BP: 135/73 (!) 151/86 (!) 141/84 Pulse: [...] units TID AC meals 08/28/20 Carito Thacker, DIRECTOR OF COMMUNITY SERVICES - TELEPHOTO ENGINEER acetaminophen (TYLENOL) 325 MG tablet Take 650 [...] the last 72 hours. Hepatic: Recent Labs 09/18/20542 ALKPHOS 133* ALT 104* AST 74* PROT [...] Ordering Physician DO HILL LISA Accession Number [id number] CPT4 Codes 20241 () Reason For Exam ileus Report Clinical [...] radiographic abnormality. Report Dictated on Workstation: [id number] --- Final --- Dictating Physician: MD BARRAGAN HARLAN Signed Date and Time: 09/18/20209:48 am Signed by: MD BARRAGAN HARLAN Transcribed Date and Time: 09/18/2020 10:25 Ct Abdomen Pelvis W Contrast Result Date: 09/17/2020 Patient Name: WILL JACINTO ---CT--- Exam Date/Time 09/17/202022:15:[address] Abdomen/Pelvis w/ IV Contrast (IV Onl Ordering Physician ART OWEN Accession Number [id number] CPT4 Codes 82603 (CT Abdomen/Pelvis w/ IV Contrast (IV Onl), Q9967 (CT ISOVUE 370MG/ML&[id number]&ML&1) Reason For Exam abd pain/tenderness Report CT [...] schizophrenia, female identifying as male. Admitted from [place] w/ abd pain/n/v concerning for ileus. Pt [...] loss Fluid Accumulation: 1 - Mild Extremities Signal Maintenance Technician Strength: Not Performed Estimated Daily Nutrient Needs: Energy (kcal): 7831-7428; Weight Used for Energy Requirements: Adjusted(IBW) Protein (g): 53-64; Weight Used for Protein Requirements: Adjusted(IBW) Fluid (ml/day): per MD; Nutrition Related Findings: +BS; abd round, rotund. +1 pitting edema LLE, R AKA. Tamara 14. [id number], ALT and AST elevated Wounds: None Current Nutrition Therapies: DIET CLEAR LIQUID; Anthropometric Measures: Height: 5' 6" (167.6 cm) Current Body Weight: 360 lb (163.3 kg) Admission Body Weight: 360 lb (163.3 kg) [place] Body Weight: 130 lbs; % [place] Body Weight 276.9 % BMI: 58.1 Adjusted [...] Discharge Planning: Too soon to determine Contact: [id number] * Carito Ruelas, PT - 09/18/2020 10:15 AM EST Physical Therapy Facility/Department: [facility] 2E TELEMETRY Initial Assessment NAME: Will Jacinto : [...] Diagnosis(es): The primary encounter diagnosis was Ileus ([facility]). Diagnoses of Nausea and vomiting, intractability of vomiting not specified, unspecified vomiting type and Generalized abdominalpain were also pertinent to this visit. has a past medical history of Abnormal uterine bleeding (AUB), Above knee amputation of right lowerextremity ([facility]), Bipolar 1 disorder ([facility]), Blood circulation, collateral, Cellulitis, Depression, Diabetes mellitus ([facility]), Disease of blood and blood forming organ, Endometrial hyperplasia, Hx of blood clots, Hyperlipidemia, Hypertension, Lymphedema, MDRO (multiple drug resistant organisms) resistance, Morbidly obese ([facility]), Osteomyelitis (HCC), Osteomyelitis (HCC), Schizophrenia ([facility]), Sleep apnea, and Venous insufficiency. has a past surgical history that includes Abscess Drainage (Right, 09/09/2018); [place] tooth extraction; Dilation and curettage of uterus (05/18/2019); and above knee amputation (Right, 06/16/2019). Restrictions Restrictions/Precautions Restrictions/Precautions: General Precautions, Fall Risk(R [...] Lives With: Other (comment) Type of Home: Facility([facility]) Home Layout: One level Bathroom Shower/Tub: Shower chair with back, Walk-in shower Bathroom Toilet: Handicap height Bathroom Equipment: Grab bars in shower, Grab bars around toilet, Shower chair Bathroom Accessibility: Wheelchair accessible Home Equipment: Rolling walker, Wheelchair-manual Receives Help From: room service food service attendant ADL Assistance: Needs assistance(assist for toileting and all ADLs (A x 1)) Homemaking Responsibilities: No Ambulation Assistance: Needs assistance(transfers only, wc mob) Transfer Assistance: Needs assistance(at [facility] to w/c) Active Display Department Manager: No Patient's Display Department Manager Info: facility, [facility] transport Additional Comments: pt states staff assist [...] Left in bed, Nurse notified OutComes Score AM-PAC Mobility Inpatient How much difficulty turning over [...] climbing 3-5 steps with a railing?: Total AM-[facility] Inpatient Mobility Raw Score : 10 [facility] Inpatient T-Scale Score : 32.29 Mobility Inpatient CMS 0-100% Score: 76.75 Mobility Inpatient CMS G-Code Modifier : CL AM-PAC Score AM-[facility] Inpatient Mobility Raw Score : 10 (09/18/20951) AM-[facility] Inpatient T-Scale Score : 32.29 (09/18/20951) Mobility [...] 10 Carito Ruelas, PT, DPT * Althea Hancock OT - 09/18/2020 10:12 AM EST Occupational [...] balance;Decreased posture Assessment: Pt was previously at [facility] and assisted x 1 for ADL routine. [...] listed and significant for Jamilah DA SILVA. Exam: AM PAC Assistance / Modification: MOD [...] obese (HCC), Osteomyelitis (HCC), Osteomyelitis (HCC), Schizophrenia ([facility]), Sleep apnea, and Venous insufficiency. has a past surgical history that includes Abscess Drainage (Right, 09/09/2018); [place] tooth extraction; Dilation and curettage of uterus [...] Lives With: Other (comment) Type of Home: Facility([facility]) Home Layout: One level Bathroom Shower/Tub: Shower chair with back, Walk-in shower Bathroom Toilet: Handicap height Bathroom Equipment: Grab bars in shower, Grab bars around toilet, Shower chair Bathroom Accessibility: Wheelchair accessible Home Equipment: Rolling walker, Wheelchair-manual Receives Help From: room service food service attendant ADL Assistance: Needs assistance(assist for toileting and all ADLs (A x 1)) Homemaking Responsibilities: No Ambulation Assistance: Needs assistance(transfers only, wc mob) Transfer Assistance: Needs assistance(at [facility] to w/c) Active Display Department Manager: No Patient's Display Department Manager Info: facility, [facility] transport Additional Comments: pt states staff assist [...] sit: Stand by assistance Transfer Comments: at [facility] with bed height slightly elevated Vision - [...] 2: Pt will complete BSC transfer at [facility] with MIN A. Short term goal 3: Pt will aaron >10 min of functional EOB sitting at [facility] during ADL routine. Short term goal 4: Pt will complete toileting tasks at [facility]. Patient Goals Patient goals : improve [...] : GIB No Renal : CKD No FPGA ENGINEER : CVA/TIA No Musculoskeletal system : DJD [...] bp meds Priyank Rios MD * Ema Escobedo APRN - FPGA ENGINEER - 11/28/2020 10:52 AM EST Department of Internal Medicine Division of Endocrinology, Diabetes, & Metabolism Endocrinology Progress Note Patient Name: Will Jacinto : 1965 AGE: 55 y.o. Room/Bed: 1714/399940 Admission Date: 11/22/2020 5:55 PM Consult Date: 11/24/20 Visit Date: 11/28/2020 Reason for Endocrine Consult: "out of control diabetic" Provider/Team Requesting Consult: Joann PCP: Jared Guzman MD Outpt Ctc Operator: yes, [facility] ASSESSMENT: T2DM uncontrolled w/ hyperglycemia, on long-term [...] doses (160-110-150 units TID) Outpt Follow Up-- [facility] Dr. Lee Appointment request sent to Endo office Staff: No, has appt in January SUBJECTIVE/HPI: CHIEF COMPLAINT: Abdominal Pain Type of DM: 2 Onset of DM: unclear Home DM Medication Regimen: U500 pen 160/110/150 TID; given via SNF ([facility]) DM control (last A1c/glucose data): Lab Results [...] am. Plan for d/c to [facility] later today. ROS negative except for those [...] Units into the skin Daily with supper 1/21/21 Yes Michael Martin MD metoprolol tartrate (LOPRESSOR) [...] 2126 11/27/20 0737 11/27/20 1036 11/27/20 1736 11/27/20 2108 11/28/20 0757 11/28/20 1018 POCGLU 383* 254* 223* [...] Radiology ACCESSION EXAM DATE/TIME PROCEDURE ORDERING PROVIDER [id number] 11/22/2020 18:30 EST CR Chest Portable [id number] PHAM CPT code 01746 Reason For Exam (CR Chest Portable) SOB [...] Tomography ACCESSION EXAM DATE/TIME PROCEDURE ORDERING PROVIDER [id number] 11/22/2020 19:[address] Abdomen/Pelvis w/ IV [id number] HiginioJOEL NELSON Contrast (IV Onl CPT code 50033 Q9967 Reason For Exam (CT Abdomen/Pelvis w/ [...] lobe pulmonary nodule. Report Dictated on Workstation: Bday --- Final --- Dictating Physician: MD KELLEY [...] radiology, and other reports. I reviewed the CUTTING MACHINE TENDER/resident's note and agree with the documented findings [...] outpatient - plan to DC back to [facility] * Michael Martin MD - 11/28/2020 9:03 [...] 08/23/2020 No results found for: PHART, PO2ART, UCQ5KBG No results for input(s): INR in the last 72 hours. Recent Labs 11/26/201926 TROPONINI <0.012 No results for input(s): DDIMER [...] Advance diet to GI soft Seen by Budget Officer and had hysteroscopy with biopsy done KUB improving. Follow today. Cont laxative regimen. Monitor KUB Seen by GI -started reglan Cont PPI Endocrinology following for hyperglycemia Pt denied any chest pain. Troponin negative. Seen by cardiology Added PT/OT Discharge planning if tolerating diet. Michael Martin MD Rounding Hospitalist * Emily Harding, MS, RD, LD - 11/27/2020 4:16 PM [...] 06/2019, and transgener female to male.Transferred to [facility] for gynecology oncology evaluation for vaginal bleeding [...] denies any recent appetite or wt changes SECTION HAND. Pt reports his wt fluctuates frequently, stating UBW 350#, and pt last weighed 353# in nursing facility within past month Malnutrition Assessment: Malnutrition Status: Insufficient data Estimated Daily Nutrient Needs: Energy (kcal): 8303-9850; Weight Used for Energy Requirements: Adjusted(IBW) Protein [...] however 330# per Epic 09/17, 340# 01/02) [place] Body Weight: 130 lbs; % [place] Body Weight 243.8 % BMI: 51.2 Adjusted [...] Discharge Planning: Too soon to determine Contact: [phone] * Ema Escobedo APRN - FPGA ENGINEER - 11/27/2020 1:41 PM EST Department of Internal Medicine Division of Endocrinology, Diabetes, & Metabolism Endocrinology Progress Note Patient Name: Will Jacinto : 1965 AGE: 55 y.o. Room/Bed: [facility] Admission Date: 11/22/2020 5:55 PM Consult Date: 11/24/20 Visit Date: 11/27/2020 Reason for Endocrine Consult: "out of control diabetic" Provider/Team Requesting Consult: Joann PCP: Jared Guzman MD Outpt Ctc Operator: yes, [facility] ASSESSMENT: T2DM uncontrolled w/ hyperglycemia, on long-term [...] doses (160-110-150 units TID) Outpt Follow Up-- [facility] Dr. Lee Appointment request sent to Endo office Staff: No, has appt in January SUBJECTIVE/HPI: CHIEF COMPLAINT: Abdominal Pain Type of DM: 2 Onset of DM: unclear Home DM Medication Regimen: U500 pen 160/110/150 TID; given via SNF ([facility]) DM control (last A1c/glucose data): Lab Results Component Value Date LABA1C 10.0 (A) 11/23/2020 Lab Results Component Value Date EAG 240 11/23/2020 Pt is now s/p D&C and IUD placement. C/o abd tenderness, nausea. No BM today. Had soup and milk this am. Denies CP/SOB. BG 205 this am. Pt continues to be on full liquid currently. Plan for d/c to [facility] once stable. ROS negative except for those [...] the last 72 hours. Hepatic: Recent Labs 11/27/206 ALKPHOS 97 ALT 34 AST 26 PROT [...] Radiology ACCESSION EXAM DATE/TIME PROCEDURE ORDERING PROVIDER [id number] 11/22/2020 18:30 EST CR Chest Portable [id number] NELSON CPT code 35464 Reason For Exam (CR Chest Portable) SOB [...] Tomography ACCESSION EXAM DATE/TIME PROCEDURE ORDERING PROVIDER [id number] 11/22/2020 19:[address] Abdomen/Pelvis w/ IV [id number] -JOEL NELSON Contrast (IV Onl CPT code 96604 Q9967 Reason For Exam (CT Abdomen/Pelvis w/ [...] COLON, DIAGNOSTIC 09/19/[address] Barrett NICHOLEDOM TOOTH EXTRACTION Allergy(ies): No Known Allergies Family [...] radiology, and other reports. I reviewed the CUTTING MACHINE TENDER/resident's note and agree with the documented findings [...] outpatient - plan to DC back to [facility] * Morenita Steele V., PT - 11/27/2020 9:48 AM EST Physical Therapy Facility/Department: [facility] Initial Assessment NAME: Will Jacinto : [...] history that includes Abscess Drainage (Right, 09/09/2018); [place] tooth extraction; Dilation and curettage of uterus [...] Home Equipment: Wheelchair-electric Receives Help From: Family, room service food service attendant ADL Assistance: Needs assistance Homemaking Assistance: Needs assistance Homemaking Responsibilities: No Active Display Department Manager: No Patient's Display Department Manager Info: facility, [facility] transport Additional Comments: from facility, assist with ADLs, uses electric wheelchair for mobility, stand pivot transfer with FWW SECTION HAND Cognition Cognition Arousal/Alertness: Appropriate responses to stimuli [...] for falls, Left in bed AM-PAC Score AM-PAC Inpatient Mobility Raw Score : 6 (11/27/20941) AM-PAC Inpatient T-Scale Score : 23.55 (11/27/20941) Mobility [...] Plan of Care supervision is transferred to [facility] Re[facility] Department Physical Therapist. Goals and/or treatment [...] Units Subcutaneous TID AC Recent Labs 11/25/20 043 WBC 7.6 HGB 10.0* PLT 352 Recent [...] 08/23/2020 No results found for: PHART, PO2ART, ZVL4GIZ No results for input(s): INR in the [...] had multiple BMs this morning. Seen by Budget Officer and had hysteroscopy today with biopsy done KUB showing possible ileus. Pt asking for food. Cont liquid diet for now. Added miralax. Monitor serial KUBs. Seen by GI -started reglan Cont PPI Endocrinology following for hyperglycemia Pt denied any chest pain. Troponin negative. Seen by cardiology Added PT/OT Mhd Tesha Almoselli, MD Rounding Hospitalist * Denise Ramon, OT - 11/27/2020 9:40 AM EST Occupational Therapy Occupational Therapy Initial Assessment Date: 11/27/2020 Patient Name: Wlil Jacinto : 1965 Date of Service: 11/27/2020 [...] history that includes Abscess Drainage (Right, 09/09/2018); [place] tooth extraction; Dilation and curettage of uterus [...] Home Equipment: Wheelchair-electric Receives Help From: Family, room service food service attendant ADL Assistance: Needs assistance Homemaking Assistance: Needs assistance Homemaking Responsibilities: No Active Display Department Manager: No Patient's Display Department Manager Info: facility, [facility] transport Additional Comments: from facility, assist with ADLs, uses electric wheelchair for mobility, stand pivot transfer with FWW SECTION HAND Objective Vision: Within Functional Limits Hearing: Within [...] Equipment Evaluation, Education, & procurement OutComes Score [facility] Daily Activity Inpatient How much help for putting on and taking off regular lower body clothing?: Total How much help for Bathing?: A Lot How much help for Toileting?: Total How much help for putting on and taking off regular upper body clothing?: A Little How much help for taking care of personal grooming?: None How much help for eating meals?: None [facility] In[facility] Daily [facility]: [facility] ADL T-Scale Score : 34.69 ADL [...] [facility]. Goals and/or treatment plan was established in collaboration with patient/family/other representatives. Denise Ramon OTR/L * Jagdeep Grace MD - 11/27/2020 8:14 AM EST Progress Note Date:11/27/2020 Room:[address] [place] [address] Patient Name:Will Jacinto Date of :1965 Age:55 [...] and dry. Labs/Imaging/Diagnostics Labs: CBC: Recent Labs 11/25/20 0434 WBC 7.6 RBC 3.35* HGB 10.0* HCT 29.4* MCV 87.7 RDW 16.1* PLT 352 CHEMISTRIES: Recent Labs 11/25/20 0434 11/26/20 0000 11/27/20 0316 NA 136 130* 132* K 3.8 3.9 4.2 CL 103 98 104 CO2 28 25 21* BUN 11 10 13 CREATININE 0.76 0.63 0.57 GLUCOSE 107* 188* 225* PT/INR:No results for input(s): PROTIME, INR in the last 72 hours. APTT:No results for input(s): APTT in the last 72 hours. LIVER PROFILE: Recent Labs 11/25/20 0434 11/26/20 0000 11/27/20 0316 AST 26 29 26 ALT 31 33 34 BILITOT 0.4 0.5 0.6 ALKPHOS 83 88 97 Imaging Last 24 Hours: Xr Abdomen (kub) (single Ap View) Result Date: 11/25/2020 Patient Name: WILL JACINTO Diagnostic Radiology ACCESSION EXAM DATE/TIME PROCEDURE ORDERING PROVIDER [id number] 11/25/2020 15:08 EST CR Abdomen AP Lorenzo STAPLETON MICHAEL CPT code 26460 Reason For Exam (CR Abdomen AP) abd [...] Ultrasound ACCESSION EXAM DATE/TIME PROCEDURE ORDERING PROVIDER [id number] 11/25/2020 10:38 EST US Transvaginal MD FRANCES, JAKOB CHATMAN CPT code 00049 Reason For Exam (US Transvaginal) AUB Report [...] PATIENT NAME: Will Jacinto DATE: 11/27/2020 PAGER: [phone] * Ema EscobedoJEREMY - FPGA ENGINEER - 11/26/2020 1:45 PM EST Department of Internal Medicine Division of Endocrinology, Diabetes, & Metabolism Endocrinology Progress Note Patient Name: Will Jacinto : 1965 AGE: 55 y.o. Room/Bed: [facility]436887 Admission Date: 11/22/2020 5:55 PM Consult Date: 11/24/20 Visit Date: 11/26/2020 Reason for Endocrine Consult: "out of control diabetic" Provider/Team Requesting Consult: Joann PCP: Jared Guzman MD Outpt Ctc Operator: yes, [facility] ASSESSMENT: T2DM uncontrolled w/ hyperglycemia, on long-term [...] doses (160-110-150 units TID) Outpt Follow Up-- [facility] Dr. Lee Appointment request sent to Endo office Staff: No, has appt in January SUBJECTIVE/HPI: CHIEF COMPLAINT: Abdominal Pain Type of DM: 2 Onset of DM: unclear Home DM Medication Regimen: U500 pen 160/110/150 TID; given via SNF ([facility]) DM control (last A1c/glucose data): Lab Results [...] full liquid currently. [facility]. ROS negative except for those [...] Radiology ACCESSION EXAM DATE/TIME PROCEDURE ORDERING PROVIDER [id number] 11/22/2020 18:30 EST CR Chest Portable [id number] NELSON CPT code 93064 Reason For Exam (CR Chest Portable) SOB [...] Tomography ACCESSION EXAM DATE/TIME PROCEDURE ORDERING PROVIDER [id number] 11/22/2020 19:[address] Abdomen/Pelvis w/ IV [id number] -JOEL NELSON Contrast (IV Onl CPT code 13705 Q9967 Reason For Exam (CT Abdomen/Pelvis w/ [...] COLON, DIAGNOSTIC 09/19/[address] Barrett NICHOLEDOM TOOTH EXTRACTION Allergy(ies): No Known Allergies Family [...] radiology, and other reports. I reviewed the CUTTING MACHINE TENDER/resident's note and agree with the documented findings [...] outpatient - plan to DC back to [facility] Time spent with patient over 51% total time 15 minutes which includes review of records, counseling, management, and coordination of care as documented in note. * Jagdeep Grace MD - 11/26/2020 12:59 PM EST Progress Note Date:11/26/2020 Room:[address] [place] [address] Patient Name:Will Jacinto Date of :1965 Age:55 [...] Radiology ACCESSION EXAM DATE/TIME PROCEDURE ORDERING PROVIDER [id number] 11/25/2020 15:08 EST CR Abdomen AP Lorenzo STAPLETON MICHAEL CPT code 97671 Reason For Exam (CR Abdomen AP) abd [...] on --- Final --- Dictating Physician: MD CNYDI, CALDERON Signed Date and Time: 11/25/2020 3:29 pm Signed by: MD HANNA NICHOLAS T ranscribed Date and Time: 11/25/2020 3:31 Us Non Ob Transvaginal Result Date: 11/25/2020 Patient Name: WILL JACINTO Ultrasound ACCESSION EXAM DATE/TIME PROCEDURE ORDERING PROVIDER [id number] 11/25/2020 10:38 EST US Transvaginal MD CRAMER DIANA CHRISTINE CPT code 63273 Reason For Exam (US Transvaginal) AUB Report [...] PATIENT NAME: Will Jacinto DATE: 11/26/2020 PAGER: [phone] * Leonela Guerrero MD - 11/26/2020 12:35 PM EST Underwent uncomplicated PEUA, D&C, and IUD placement this morning. Megace discontinued as she is now being treated with levonorgestrel IUD. Will await pathology results and arrange outpatient follow up. FUR EXAMINER ONC will sign off at this time. Please re-consult with further questions or concerns. Discussed w/ Dr. Dejesus. * Michael Martin MD - 11/26/2020 10:24 AM EST Hospitalist Progress Note 11/26/2020 10:25 AM Subjective: Admit Date: 11/22/2020 PCP: Jared Guzman MD Interval History: No overnight issues. DIET FULL LIQUID; No intake/output data recorded. Date 11/26/20 0000 - 11/26/20 2359 Shift 0675-9842 0288-8703 6867-3287 24 Hour Total INTAKE P.O.(mL/kg/hr) 100 100 [...] 08/23/2020 No results found for: PHART, PO2ART, AIX0PUN No results for input(s): INR in the [...] 11. Debility Plan: Pt was transferred from [facility] Seen by Budget Officer and had hysteroscopy today with biopsy done [...] Note Date: 11/26/2020 Time: 6:17 AM Will Jacinto 55 y.o. transgender male admitted to [facility] for abdominal pain and uncontrolled T2DM, gynecology [...] (!) 157/78 Pulse: 71 87 85 Resp: Temp: 99.5 F (37.5 C) 97.8 F [...] % sodium chloride infusion Intravenous Continuous Art Stapleton MD 125 mL/hr at 11/25/20 1138 [...] 0-16 Units 0-16 Units Subcutaneous TID TANIA CardenassDO 6 Units at 11/25/201812 Diagnostics: Xr Chest Portable Result Date: 11/22/2020 [...] Jacinto 55 y.o. transgender male admitted to [facility] for abdominal pain and uncontrolled [...] determine long-term management Appreciate primary team and pre owned sales consultant management of medical comorbidities. Most recent BGT [...] Consult: Joann PCP: Jared Guzman MD Outpt Ctc Operator: yes, [facility] ASSESSMENT: T2DM uncontrolled w/ hyperglycemia, [...] doses (160-110-150 units TID) Outpt Follow Up-- [facility] Dr. Lee Appointment request sent to Endo office Staff: No, has appt in January SUBJECTIVE/HPI: CHIEF COMPLAINT: Abdominal Pain Type of DM: 2 Onset of DM: unclear Home DM Medication Regimen: U500 pen 160/110/150 TID; given via [facility] ([facility]) DM control (last A1c/glucose data): Lab Results [...] 159* 121* 202* HgbA1C: Recent Labs 11/23/20 035 LABA1C 10.0* Hepatic: Recent Labs 11/22/20 1827 [...] Radiology ACCESSION EXAM DATE/TIME PROCEDURE ORDERING PROVIDER [id number] 11/22/2020 18:30 EST CR Chest Portable [id number] CUTLER CPT code 34803 Reason For Exam (CR Chest Portable) SOB [...] Tomography ACCESSION EXAM DATE/TIME PROCEDURE ORDERING PROVIDER [id number] 11/22/2020 19:[address] Abdomen/Pelvis w/ IV [id number] -OJEL NELSON Contrast (IV Onl CPT code 33409 Q9967 Reason For Exam (CT Abdomen/Pelvis w/ [...] w no associated sx starting last evening, "9/10" in severity (but waited all night and AM to report it), EKG is sinus without ischemic changesand troponin neg so far. Also nurse noted excessive vaginal clots, patient not seen by FUR EXAMINER ("due tohigh glucoses"). His glucose came down [...] TID AC Recent Labs 11/22/20 1827 11/23/20 0351 11/24/20 0319 WBC 9.6 8.9 6.9 HGB 12.0 11.2* 11.0* PLT 404 343 332 Recent Labs 11/23/20 0351 11/24/20 0319 11/24/20 1126 NA 133* 132* 133* K 4.8 [...] in transgender male, hx of endometrial hyperplasia, FUR EXAMINER consulted 5. Morbid obesity, obstructive sleep apnea on no mask 6. S/p RLE AKA 7. HTN 8. HPL 9. Depression/schizophrenia/bipolar type 1 10. Hx of chronic LLE cellulitis/lymphedema 11. Debility Advance Directive: Full Code DVT prophylaxis lovenox 40 daily Discharge planning: SNF Active Problems: Hyperglycemia Diabetic hyperosmolar non-ketotic state (HCC) Resolved Problems: * No resolved hospital problems. * Kylah David MD * Neisha Keller RN - 11/24/2020 11:43 AM EST Marquise Yeast Cake Cutter called me to patients bedside at 11:15am [...] on patient since it was called by racing secretary and handicapper and Dr David will be at bedside [...] - 06/20/2019 10:09 AM EDT Progress Note [facility] Patient - Will Jacinto, Age - 53 y.o. - 1965 Room Number - 6125/[id number] N - [id number] [facility] # - [id number] Date of Admission - 06/14/2019 1:21 PM [...] the last 72 hours. BMP: Recent Labs 06/18/1941606/19/194 06/20/19 0123 NA 135 135 139 K 4.2 5.7* 4.6 CL 100 101 105 CO2 26 24 26 BUN 29* 33* 30* CREATININE 1.53* 1.67* 1.18 GLUCOSE 108* 180* 85 Hepatic: Recent Labs 06/18/1941606/19/1934306/20/19 0123 ALKPHOS 94 126 124 ALT 44 [...] Disease Specialists 06/20/2019 3:22 PM * Kyaw Waddell, - 06/20/2019 8:32 AM EDT ENDOCRINOLOGY PROGRESS NOTE Patient: Will Jacinto Unit/Bed:[facility]645647 Date of : 1965 Admit date: 06/14/2019 [...] intake/output: Intake/Output Summary (Last 24 hours) at 06/20/2019 0832 Last data filed at 06/19/2019 1544 Gross per 24 hour Intake 1450 ml Output Net 1450 ml Physical Exam Constitutional: He is oriented to person, place, and time. He appears well- developed and well-nourished. HENT: Head: Normocephalic. Eyes: EOM are normal. Cardiovascular: Normal rate, regular rhythm and normal heart sounds. Pulmonary/Chest: Effort normal and breath sounds normal. Musculoskeletal: [place] at r AKA are intact Faint erythema [...] radiology, and other reports. I reviewed the CUTTING MACHINE TENDER/resident's note and agree with the documented findings [...] per protocol. Noted likely DC back to [place]. Anticipated homegoing regimen: U-500 160-125-125 TID (given different diet at the [place]). FU with Endocrinology outpatient - pt prefers closer to [place]. Time spent with patient over 51% total time 25 minutes which includes review of records, counseling, management, and coordination of care as documented in note. * Davie Frankel MD - 06/19/2019 11:56 AM EDT Hospitalist Progress Note 06/19/2019 11:57 AM [phone]: Please page me for patient care issues. [phone]: Please page [facility] Hospitalist for any issues. Subjective: Admit Date: 06/14/2019 PCP: Jared Guzman MD Room#: 4875/157072 Interval History: No new issues per pt [...] Subcutaneous Daily LABS: CBC: Recent Labs 06/17/19 0409 WBC 13.3* RBC 3.26* HGB 7.6* HCT [...] 10 10 LIVER PROFILE: Recent Labs 06/17/19 0409 06/18/19 0417 06/19/19 0344 AST 34 48* 71* ALT 30 [...] Advance Directive: Full Code Discharge planning: to snf soon Davie Frankel MD Division of Hospitalist Medicine Inpatient Medical Services * Theo Billingsley MD - 06/19/2019 9:46 AM EDT Progress Note [facility] Patient - Will Jacinto, Age - 53 y.o. - 1965 Room Number - 6125/[id number] N - [id number] Date of Admission - 06/14/2019 1:21 PM [...] otherwise noted. [facility] 06/19/2019 2:08 PM * Elle Knutson [facility] - 06/19/2019 9:24 AM EDT Physical Therapy Facility/Department: [facility] Daily Treatment Note NAME: Will Jacinto : 1965 Date of Service: 06/19/2019 Discharge Recommendations: Subacute/Assisted Facility Assessment Body structures, Functions, Activity limitations: [...] history that includes Abscess Drainage (Right, 09/09/2018); [place] tooth extraction; Dilation and curettage of uterus [...] Time Individual Concurrent Group Co-treatment Time In 0834 Time Out 0900 Minutes 26 Timed Code Treatment Minutes: 26 Minutes(FA x 2) Elle Knutson PTA * Linda Cameron, OT - 06/19/2019 9:21 AM EDT Occupational Therapy Occupational Therapy Initial Assessment Date: 06/19/2019 Patient Name: Will Jacinto : 1965 Date of Service: 06/19/2019 Discharge Recommendations: Subacute/Assisted Facility Assessment Performance deficits / Impairments: Decreased functional mobility ;Decreased ADL status;Decreased ROM;Decreased strength;Decreased safe awareness;Decreased cognition;Decreased endurance;Decreased balance;Decreased coordination Assessment: OT eval completed. Pt presents with above deficits limitng functional indep. Pt is a falls and safety risk. Recommend SNF upon discharge to maximize indep and safety with ADL and transfers. Prognosis: Fair Decision Making: Medium Complexity Exam: AMPACS OT Education: OT Role;Plan of Care;Transfer Training;Orientation [...] history that includes Abscess Drainage (Right, 09/09/2018); [place] tooth extraction; Dilation and curettage of uterus [...] Lives With: Other (comment) Type of Home: Facility([facility]) Home Layout: One level Home Access: Level entry Bathroom Shower/Tub: Walk-in shower, Shower chair with back Bathroom Toilet: Handicap height Bathroom Equipment: Grab bars in shower, Shower chair Bathroom Accessibility: Wheelchair accessible Home Equipment: 4 wheeled walker, Electric scooter, Wheelchair-manual Receives Help From: room service food service attendant ADL Assistance: Needs assistance Homemaking Assistance: (provided by facility) Homemaking Responsibilities: No Ambulation Assistance: Independent(has been using wc 3-4 years) Transfer Assistance: Independent Active Display Department Manager: No Patient's Display Department Manager Info: facility, [facility] transport Mode of Transportation: Bus, Van Education: [...] Home Management Training, Cognitive/Perceptual Training OutComes Score [facility] Daily Activity Inpatient How much help for putting on and taking off regular lower body clothing?: Total How much help for Bathing?: A Lot How much help for Toileting?: Total How much help for putting on and taking off regular upper body clothing?: A Lot How much help for taking care of personal grooming?: A Little How much help for eating meals?: None [facility] Inpatient Daily Activity Raw Score: 13 [facility] Inpatient ADL T-Scale Score : 32.03 ADL [...] Time Individual Concurrent Group Co-treatment Time In 0825 Time Out 0903 Minutes 38 Timed Code Treatment Minutes: 25 Minutes(FA 2) Goals and/or treatment plan was established in collaboration with patient/family/other representatives. Patient's Occupational Therapy Plan of Care supervision is transferred to [facility] Occupational Therapist. Pt requires skill of 2 therapists for safety and positioning. Linda Cameron OTR/L * Kerri Morales MD - 06/19/2019 8:16 AM EDT Department of Internal Medicine Section of Endocrinology Resident Progress Note SUBJECTIVE: Admit date: 06/14/2019 Admitted w/: Right foot wound requiring AKA Original Endocrine Consult date: 06/15/19 OutPt Ctc Operator: None Lab Results Component Value Date LABA1C [...] Range: >60 mL/min 38.9 EGFR IF NonAfrican Vincentian Latest Ref Range: >60 mL/min 32.1 Glucose [...] to be determined. Please page the on-call Ctc Operator if there arequestions regarding Endocrine DC recommendations. If there are any questions or concerns related to the info please page the shoe salesperson pre owned sales consultant directly. On-Call information can be found in the [facility] Directory. We appreciate the opportunity to [...] this progress note please page the oncall pre owned sales consultant directly. On-Call information can be found in the [facility] Directory. We can also be reached by [employer] system. We appreciate the opportunity to participate [...] EDT Hospitalist Progress Note 06/18/2019 2:31 PM [phone]: Please page me for patient care issues. [phone]: Please page [facility] night Hospitalist for any issues. Subjective: Admit Date: 06/14/2019 PCP: Jared Guzman MD Room#: [id number] Interval History: Patient seen and examined No [...] of Hospitalist Medicine Inpatient Medical Services PAGER: [phone] * Allison Coleman RD, LD - 06/18/2019 1:14 PM EDT [...] he is still ordering & consuming meals. SECTION HAND, he was a resident at [facility]. At [place], he reports receiving ProStat (protein modular) and daily MVI to promote wound healing. Pt agreeable to trial Conor BID during admit. Wound care consult pending. NKFA. No difficulty chewing/ swallowing. Pt did not make eye contact throughout assessment, and primarily answered with "uh huh." Pt declined diet education at this time. Recent A1c 10.0% (06/16/19). The pt's motivation toward dietary modification appears low at this time. Malnutrition Assessment: Malnutrition Status: No malnutrition Nutrition Risk Level: High Nutrient Needs: Estimated Daily Total Kcal: 9737-5435 (25-30 kcals/kg IBW) Estimated Daily Protein (g): [...] 380 lb (172.4 kg)(Per pt report ) [place] Body Wt: 122 lb (55.3 kg)(Adjusted IBW based on R AKA ), % [place] Body 309% Adjusted Body Wt: , body [...] - 06/18/2019 9:28 AM EDT Progress Note [facility] Patient - Will Jacinto, Age - 53 y.o. - 1965 Room Number - [id number] [facility] [id number] [id number] Date of Admission - 06/14/2019 1:21 PM [...] Oral Nightly colistimethate (COLY-MYCIN) IVPB 1.69 mg/kg ([place]) Intravenous Q8H insulin regular 0-16 Units Subcutaneous [...] is being seen by wound care at [facility] already. Original Endocrine Consult date: 06/15/19 OutPt Ctc Operator: none Lab Results Component Value Date LABA1C [...] 5 % 100 mL IVPB, 1.69 mg/kg ([place]), Intravenous, Q8H insulin regular (HUMULIN R;NOVOLIN R) [...] to be determined. Please page the on-call Ctc Operator if there arequestions regarding Endocrine DC recommendations. If there are any questions or concerns related to the info in this progress note please page the oncall pre owned sales consultant directly. On-Call information can be found in the [facility] Directory. We appreciate the opportunity to [...] Clemons MD - 06/18/2019 6:13 AM EDT [facility] H[address] TELEMETRY [address] [place] [address] Dept: [phone] Loc: [phone] Orthopedic Progress Note Name: Will Jacinto Date:06/18/2019 Attending:Jayesh Jordan MD Subjective JB. Dressing stayed on overnight. Objective Vitals: Vitals: 06/17/19 0028 06/17/19 0745 06/17/19 1450 06/17/192014 BP: 109/84 (!) 112/56 108/63 (!) 106/44 Pulse: 90 102 93 107 Resp: Temp: 97.2 F (36.2 C) 98.2 F [...] an outpatient in 2 weeks please call [phone] to make an appointment Will sign off-=call with questions * Jayson Hawthorne MD - 06/17/2019 2:43 PM EDT Progress Note [facility] Patient - Will Jacinto, Age - 53 y.o. - 1965 Room Number - [id number] N - [id number] [id number] Date of Admission - 06/14/2019 1:21 PM [...] Oral Nightly colistimethate (COLY-MYCIN) IVPB 1.69 mg/kg ([place]) Intravenous Q8H insulin regular 0-16 Units Subcutaneous TID AC sodium chloride flush 10 mL Intravenous 2 times per day enoxaparin 40 mg Subcutaneous Daily vancomycin 2,000 mg Intravenous Q12H dextrose LABS: CBC: Recent Labs 06/15/19 0423 06/16/19 0358 06/16/19 0641 06/17/19 0409 WBC 6.6 disregard* 6.7 13.3* HGB 8.8* disregard* 8.8* 7.6* PLT 353 -- 372 403 BMP: Recent Labs 06/15/19 0423 06/16/19 0358 06/17/19 0409 06/17/19 1310 NA 135 [...] within the midfoot with some midfoot [facility] 06/17/2019 2:44 PM * Crystal Mullins MD - 06/17/2019 1:15 PM EDT Hospitalist Progress Note 06/17/2019 1:16 PM [phone]: Please page me for patient care issues. [phone]: Please page I[facility] night Hospitalist for any issues. Subjective: Admit Date: 06/14/2019 PCP: Jared Guzman MD Room#: [id number] Interval History: Patient seen and examined No [...] Oral Nightly colistimethate (COLY-MYCIN) IVPB 1.69 mg/kg ([place]) Intravenous Q8H insulin regular 0-16 Units Subcutaneous [...] BMP: Recent Labs 06/15/1942206/16/19 0358 06/17/19 0409 NA 135 131* 134* [...] of Hospitalist Medicine Inpatient Medical Services PAGER: [phone] * Sera Kraus, PT - 06/17/2019 10:32 AM EDT Physical Therapy Facility/Department: [facility] Initial Assessment NAME: Will Jacinto : 1965 Date of Service: 06/17/2019 Discharge Recommendations: Subacute/Assisted Facility Assessment Body structures, Functions, Activity limitations: [...] history that includes Abscess Drainage (Right, 09/09/2018); [place] tooth extraction; Dilation and curettage of uterus [...] Lives With: Other (comment) Type of Home: Facility([facility]) Home Layout: One level Home Access: Level entry Bathroom Shower/Tub: Walk-in shower, Shower chair with back Bathroom Toilet: Handicap height Bathroom Equipment: Grab bars in shower, Shower chair Bathroom Accessibility: Wheelchair accessible Home Equipment: 4 wheeled walker, Electric scooter, Wheelchair-manual Receives Help From: room service food service attendant ADL Assistance: Needs assistance Homemaking Assistance: (provided by facility) Homemaking Responsibilities: No Ambulation Assistance: (non-ambulatory x3-4 years, uses wc) Transfer Assistance: Independent Active Display Department Manager: No Patient's Display Department Manager Info: facility, [facility] transport Mode of Transportation: Bus, Van Education: [...] Left in bed, Nurse notified AM-PAC Score [facility] Inpatient Mobility Raw Score : 6 (06/17/191031) [facility] Inpatient T-Scale Score : 23.55 (06/17/191031) Mobility Inpatient CMS 0-100% Score: 100 (06/17/19 103) Mobility Inpatient [facility] G-Code Modifier : CN (06/17/191031) Goals Short [...] Time Individual Concurrent Group Co-treatment Time In 0954 Time Out 1019 Minutes 25 Timed Code Treatment Minutes: 10 Minutes(TP) Patient s Physical Therapy Plan of Care supervision is transferred to [facility] Rehab Department Physical Therapist. Goals and/or treatment [...] is being seen by wound care at [facility] already. Original Endocrine Consult date: 06/15/19 OutPt Ctc Operator: none Lab Results Component Value Date LABA1C [...] 5 % 100 mL IVPB, 1.69 mg/kg ([place]), Intravenous, Q8H insulin regular (HUMULIN R;NOVOLIN R) [...] to be determined. Please page the on-call Ctc Operator if there arequestions regarding Endocrine DC recommendations. If there are any questions or concerns related to the info in this progress note please page the oncall pre owned sales consultant directly. On-Call information can be found in the [facility]. We appreciate the opportunity to [...] Clemons MD - 06/17/2019 5:29 AM EDT [facility] H[address] TELEMETRY [address] [facility] [address] Dept: [phone] Loc: [phone] Orthopedic Progress Note Name: Will Jacinto Date:06/17/2019 [...] of incision Dressing replaced. LABS: Recent Labs 06/15/1942206/16/198 06/16/19 0641 06/17/19 0409 WBC 6.6 disregard* 6.7 13.3* HGB 8.8* disregard* 8.8* 7.6* HCT 27.2* disregard* 28.2* 24.8* PLT 353 -- 372 403 Recent Labs 06/15/193 06/16/19 0358 06/17/19 0409 NA 135 131* [...] an outpatient in 2 weeks please call [phone] to make an appointment * Crystal Mullins MD - 06/16/2019 4:12 PM EDT Hospitalist Progress Note 06/16/2019 4:12 PM [phone]: Please page me for patient care issues. [phone]: Please page [facility] night Hospitalist for any issues. Subjective: Admit Date: 06/14/2019 PCP: Jared Guzman MD Room#: [id number] Interval History: Patient seen and examined No [...] Oral Nightly colistimethate (COLY-MYCIN) IVPB 1.69 mg/kg ([place]) Intravenous Q8H insulin regular 0-16 Units Subcutaneous TID AC sodium chloride flush 10 mL Intravenous 2 times per day enoxaparin 40 mg Subcutaneous Daily vancomycin 2,000 mg Intravenous Q12H LABS: CBC: Recent Labs 06/14/19 1456 06/15/19 0423 06/16/19 0358 06/16/19 0641 WBC 7.0 6.6 disregard* 6.7 RBC [...] 13 10 11 LIVER PROFILE: Recent Labs 06/15/19 0423 06/16/19 0358 06/16/19 1526 AST 30 29 -- ALT [...] of Hospitalist Medicine Inpatient Medical Services PAGER: [phone] * Asuncion Garibay DO - 06/16/2019 3:23 PM EDT Department of Internal Medicine Section of Endocrinology Attending Progress Note SUBJECTIVE: Admit date: 06/14/2019 Admitted w/: Chief Complaint Patient presents with Wound Check Patient sent over for evaluation for worsening leg infections, right lower leg is worse. he is being seen by wound care at [facility] already. Original Endocrine Consult date: 06/15/19 OutPt Ctc Operator: none Lab Results Component Value Date LABA1C [...] 5 % 100 mL IVPB, 1.69 mg/kg ([place]), Intravenous, Q8H insulin regular (HUMULIN R;NOVOLIN R) [...] to be determined. Please page the on-call Ctc Operator if there arequestions regarding Endocrine DC recommendations. If there are any questions or concerns related to the info in this progress note please page the oncall pre owned sales consultant directly. On-Call information can be found in the [facility]. We appreciate the opportunity to [...] - 06/16/2019 12:25 PM EDT Progress Note [facility] Patient - Will Jacinto, Age - 53 y.o. - 1965 Room Number - [id number] [facility] - [id number] 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 No events o/n. Patient prepared for OR today, expressed understanding once again and agreed that he needs an above knee amputation. States he has remained NPO. Denies other needs this AM. Objective Vitals: Vitals: 06/15/19 1920 06/15/19 2218 06/16/19 0242 06/16/19 0450 BP: 120/76 (!) 114/57 (!) 93/50 Pulse: 103 95 92 Resp: 18 18 18 Temp: 98.5 F (36.9 C) 98.9 F [...] after surgery. Sanjana Oden, S/OT * Sera Kraus, PT - 06/15/2019 10:34 AM EDT Physical [...] hyperglycemia, with long-term current use of insulin ([facility]) Class 3 severe obesity due [...] (HCC) Post-menopausal bleeding Hyperglycemia Diabetic foot infection ([facility]) Right Diabetic foot OM: ID on board, antibiotics, plan for Right AKA. DM II: Hb A 1 c was 10. Pt on a rather ocmplex and high doses of Insulin. Consult endocrine. Obesity: counseled. Debility: Resides at LTC- will need SNF. Depression: on meds. DVT and GI prophylaxis ANAND LEE MD * Juan Carey MD - 06/15/2019 6:32 AM EDT [place] [address] [address] [place] [address] Dept: [phone] Loc: [phone] Orthopedic Progress Note Name: Will Jacinto Date:06/15/2019 Attending:Jayesh Jordan MD Subjective JB. No events [...] DO 9:02 PM 06/14/19 * Ginger Fuentes [facility] - 06/14/2019 7:32 PM EDT Infectious Diseases has been consulted and will manage Vancomycin at this time. Thank you for the consult. Pharmacy signing off for vancomycin dosing. Ginger Fuentes [facility] Date: 06/14/19 Time: 7:32 PM documented in this encounter Hospital Course * Nabil Hill DO - 09/28/2020 10:05 AM EST Physician Discharge Summary Patient ID: Will Jacinto [id number] y.o. 1965 Admit date: 09/17/2020 Discharge [...] feel he is stable to return to [facility] on this current treatment regimen with smaller [...] none needed Follow-up with Dr Guzman in snf Signed: NABIL HILL 09/28/2020 10:05 AM documented [...] transgender male, biologically female, presented from his senior care after abdominal pain, out of control glucose readings and reported mental status change. However, EMS in the hospital reported that he was alert and oriented x3, however, he says that recently he has had increasing abdominal distention and distress and he noticed that his glucoses have been harder and harder to control. Pt was admitted to [facility]. Pt had dysfunctinal uterine bleeding and transferred to [facility] for Budget Officer eval. Also had ab pain and found to have ileus. Seen by GI and recommended reglan. Pt had BMs. abd pain better. Advance diet to GI soft Seen by Budget Officer and had hysteroscopy with biopsy done KUB [...] 08/23/2020 No results found for: PHART, PO2ART, VTL2MKH No results for input(s): INR in the [...] Radiology ACCESSION EXAM DATE/TIME PROCEDURE ORDERING PROVIDER [id number] 11/27/2020 08:28 EST CR Abdomen AP MD MARTIN KHALED CPT code 10387 Reason For Exam (CR Abdomen AP) ileus [...] Radiology ACCESSION EXAM DATE/TIME PROCEDURE ORDERING PROVIDER [id number] 11/25/2020 15:08 EST CR Abdomen AP Lorenzo STAPLETON MICHAEL CPT code 67862 Reason For Exam (CR Abdomen AP) abd [...] Radiology ACCESSION EXAM DATE/TIME PROCEDURE ORDERING PROVIDER [id number] 11/22/2020 18:30 EST CR Chest Portable [id number] NELSON CPT code 45445 Reason For Exam (CR Chest Portable) SOB [...] Tomography ACCESSION EXAM DATE/TIME PROCEDURE ORDERING PROVIDER [id number] 11/22/2020 19:[address] Abdomen/Pelvis w/ IV [id number] JOEL PHAM Contrast (IV Onl CPT code 97068 Q9967 Reason For Exam (CT Abdomen/Pelvis w/ [...] lobe pulmonary nodule. Report Dictated on Workstation: [id number] --- Final --- Dictating Physician: MD KELLEY KEVIN Signed Date and Time: 11/22/2020 7:43 pm Signed by: MD KELLEY KEVIN Transcribed Date and Time: 11/22/2020 7:44 Us Non Ob Transvaginal Result Date: 11/25/2020 Patient Name: WILL JACINTO Ultrasound ACCESSION EXAM DATE/TIME PROCEDURE ORDERING PROVIDER [id number] 11/25/2020 10:38 EST US Transvaginal MD CRAMER DIANA CHRISTINE CPT code 21347 Reason For Exam (US Transvaginal) AUB Report [...] Will Jacinto "Maria Luisa" Home Medication Instructions JORDYN:[id number] Printed on:11/28/20 0911 Medication Information acetaminophen (TYLENOL) [...] g by mouth daily Consults: GI, cardiology, Budget Officer Disposition: Patient discharged in stable condition. Greater [...] TO GIIP CONSULT TO CARDIOLOGYIP CONSULT TO SUPERINTENDENT AUTOMOTIVE Surgeries/procedures Performed: Treatments: Discharge Plan/Disposition: Home Hospital/Incidental [...] U-500 KWIKPEN) 500 UNIT/ML SOPN concentrated injection [id number] units before breakfast, 110 units before lunch, [...] vaginal bleeding--pelvic US shows increased thickening of endometrium--FUR EXAMINER recommends further acute eval by FUR EXAMINER ONC--Dr Walsh has seen pt. Previously & recommended hysterectomy, which was postponed at that time due to other medical issues--blood sugar now controlled SIGNIFICANT DIAGNOSTIC STUDIES: Ct---pelvic US CONSULTANTS: FUR EXAMINER--cardio RECOMMENDED NEXT STEPS: To [facility] & Dr Walsh (FUR EXAMINER ONC) ---resume aspirin when bleeding issues resolved DISCHARGE MEDICATIONS: Will Jacinto "Maria Luisa" Home Medication Instructions JORDYN:[id number] Printed on:11/25/20 4081 Medication Information acetaminophen (TYLENOL) 325 MG tablet [...] Complexity: follow up within 7-14 calendar days (92500) [] Severe Complexity: follow up within 7 calendar days (80715) FOLLOW UP TESTING, PENDING RESULTS OR REFERRALS AT TRANSITIONAL CARE VISIT: [] Yes [] No PENDING STUDIES: No DISPOSITION: Transfer to Acute Care Hospital FACILITY/HOME CARE AGENCY NAME: Follow up with Jared Guzman MD [facility] [place] [address] INSTRUCTIONS TO MA/SW DISCHARGE TIME: SIGNED: ART STAPLETON MD 11/25/2020, 1:49 PM documented in this encounter Chief Complaint and Reason for Visit Chief Complaint ASSISTED LAB WOR K Chief Complaint ASSISTED LAB WOR K ASSISTED LAB WORK ASSISTED LAB WORK Chief Complaint ASSISTED LAB WOR K ASSISTED LAB WORK ASSISTED LAB WORK ASSISTED LAB WORK Chief Complaint ASSISTED LABWORK Chief Complaint ASSISTED LABWORK LABWORK Chief Complaint ASSISTED LABWORK LABWORK LABWORK Chief Complaint LABWORK ASSISTED LABWORK ASSISTED LAB WORK Chief Complaint ASSISTED LABWORK ASSISTED LAB WORK ASSISTED LABWORK Chief Complaint ASSISTED LABWORK LABWORK LABWORK LABWORK Chief Complaint LABWORK LABWORK ASSISTED LAB WORK LABWORK ASSISTED LABWORK Chief Complaint ASSISTED LAB WOR K LABWORK ASSISTED LABWORK LABWORK ASSISTED LAB WORK Chief Complaint LABWORK ASSISTED LABWORK LABWORK ASSISTED LAB WORK ASSISTED LAB WORK Chief Complaint ASSISTED LABWORK LABWORK ASSISTED LAB WORK ASSISTED LABWORK ASSISTED LAB WORK Chief Complaint LABWORK ASSISTED LAB WORK ASSISTED LABWORK ASSISTED LAB WORK LABWORK Chief Complaint LABWORK ASSISTED LAB WORK ASSISTED LABWORK ASSISTED LAB WORK ASSISTED LAB WORK LABWORK LABWORK Chief Complaint ASSISTED LAB WOR K ASSISTED LABWORK ASSISTED LAB WORK ASSISTED LAB WORK LABWORK LABWORK LABWORK LABWORK Chief Complaint ASSISTED LAB WOR K ASSISTED LABWORK ASSISTED LAB WORK ASSISTED LAB WORK LABWORK LABWORK LABWORK LABWORK LABWORK Chief Complaint Admit Date LABWORK September 22, 2024 5:00am LABWORK October 30, 2024 5:00am ASSISTED LAB WORK November 10, 2024 9:46am ASSISTED LAB WORK November 30, 2024 5:00am ASSISTED LAB WORK December 05, 2024 4:00am ASSISTED LAB WORK December 27 5:00am Chief Complaint Admit Date ASSISTED LAB WORK November 10, 2024 9:46am ASSISTED LAB WORK November 30, 2024 5:00am ASSISTED LAB WORK December 05, 2024 4:00am ASSISTED LAB WORK December 27 5:00am ASSISTED LAB WORK February 07, 2025 5: 00am Chief Complaint Admit Date ASSISTED LAB WORK December 27 5:00am ASSISTED LAB WORK February 07, 2025 5: 00am ASSISTED LAB WORK February 26, 2025 4 :00am Reason for Referral Specialty Diagnoses / Procedures Referred By Joe villafuerte Referred To Contact Oral Surgery Diagnoses [place] [address] [facility] [address] [place] [address] Referral ID Status Reason Start Date Expiration Date V isits Requested Visits Authorized [id number] Authorized 01/26/2023 01/27/2024 3 3 Scheduling Instructions Please call the executive office manager [facility] at to schedule an appointment if one was not made for you today. Comments EXT #9, 12 Specialty Diagnoses / Procedures Referred By Contac t Referred To Contact Caridad Evans MD [address] [place] [address] Referral ID Status Reason Start Date Expiration Date V isits Requested Visits Authorized [id number] Pending Review 1 1 Specialty Diagnoses / Procedures Referred By Contac t Referred To Contact Radiology Diagnoses Nausea with vomiting, unspecified Procedures NM gastric emptying solid Elda Reaves (Kelley) [address] [place] [address] Referral ID Status Reason Start Date Expiration Date V isits Requested Visits Authorized [id number] Authorized 11/24/2023 11/23/2024 3 3 Referral ID Status Reason Start Date Expiration Date V isits Requested Visits Authorized [id number] Pending Review 11/24/2023 11/23/2024 3 3 Specialty Diagnoses / Procedures Referred By Contac t Referred To Contact Radiology Diagnoses Lung nodule Procedures CT chest wo IV contrast Herber Ramos APRN - TELEPHOTO ENGINEER [address] [place] [address] Referral ID Status Reason Start Date Expiration Date V isits Requested Visits Authorized [id number] Authorized 02/11/2024 02/10/2025 1 1 Specialty Diagnoses / Procedures Referred By Contac t Referred To Contact Radiology Diagnoses Solitary pulmonary nodule Procedures CT chest wo IV contrast Herber Ramos, DIRECTOR OF COMMUNITY SERVICES - TELEPHOTO ENGINEER [address] [place] [address] Referral ID Status Reason Start Date Expiration Date V isits Requested Visits Authorized [id number] Pending Review 02/11/2024 02/10/2025 1 1 Additional Source Comments INFORMATION SOURCE (unrecogn ized section and content) DATE CREATED AUTHOR 05/13/2018 [facility] DATE CREATED AUTHOR AUTHOR'S ORGANIZ ATION 05/18/2018 [facility] DATE CREATED AUTHOR AUTHOR'S ORGANIZ ATION 01/09/2019 [facility] DATE CREATED AUTHOR AUTHOR'S ORGANIZ ATION 11/29/2020 [facility] DATE CREATED AUTHOR AUTHOR'S ORGANIZ ATION 09/25/2021 [facility] DATE CREATED AUTHOR AUTHOR'S ORGANIZ ATION 02/04/2022 [facility] DATE CREATED AUTHOR AUTHOR'S ORGANIZ ATION 11/23/2023 [facility] DATE CREATED AUTHOR AUTHOR'S ORGANIZ ATION 07/06/2025 [facility] DATE CREATED AUTHOR AUTHOR'S ORGANIZ ATION 07/10/2025 [facility] (unrecognized sect ion and content) No Status Records Found Reason for Visit (unrecogniz ed section and content) Reason Comments Leg Pain patient had right AK A last week and has had pain in RLE - senior care sent for eval d/t bloodwork results Reason Comments Abdominal Pain Reason Comments Abdominal Pain Vaginal Bleeding Nausea Reason Comments Wound Check Patient sent over fo r evaluation for worsening leg infections, right lower leg is worse. he is being seen by wound care at [facility] already. Reason Comments Follow-up DM2 Reason Onset [...] . Nabil Hill DO [address] [place] [address] [facility] 2e Telemetry [address] [place] [address] Referral ID Status Reason Start Date Expiration Date Visits Re quested Visits Authorized [id number] 1 1 Reason Comments Chest Pain Vomiting Specialty Diagnoses / Procedures Referred By Contac t Referred To Contact Diagnoses Chest pain Chest pain, unspecified type Procedures . Nabil Hill DO [address] [place] [address] [facility] 2e Telemetry [address] [place] [address] Reason Onset Date Comments Care Coordination 07/05/2023 ED Nuance Lung Nodule Reason Comments Nausea Pt brought in by EMS from [facility] with nausea/vomiting x1 day. +MALCOLM. States that [...] Diagnoses Upper abdominal pain Procedures . Nabil Hill, DO [address] [place] [address] [facility] Emergency Dept [address] [place] [address] Referral ID Status Reason Start Date Expiration Date Visits Re quested Visits Authorized [id number] 1 1 Reason Onset Date Comments Diabetes 08/30/2023 BGL Reason Onset Date Comments Diabetes 09/20/2023 BGL Specialty Diagnoses / Procedures Referred By Contac t Referred To Contact Diagnoses Hypoglycemia Procedures . Ricardo Spring MD [address] [address] [facility] Emergency Dept [address] [place] [address] Referral ID Status Reason Start Date Expiration Date Visits Re quested Visits Authorized [id number] 1 1 Reason Comments Hypoglycemia Specialty Diagnoses / Procedures Referred By Contac t Referred To Contact Diagnoses Hypoglycemia Procedures . Ricardo Spring MD [address] [address] [facility] Emergency Dept [address] [place] [address] Reason Onset Date Comments Advice Only 11/09/2023 Reason Onset Date Comments Diabetes 11/23/2023 BGL Reason Comments Flu Symptoms Specialty Diagnoses / Procedures Referred By Contac t Referred To Contact Radiology Diagnoses Nausea with vomiting, unspecified Procedures NM gastric emptying solid Elda Reaves (Kelley) [address] [place] [address] Referral ID Status Reason Start Date Expiration Date V isits Requested Visits Authorized [id number] Authorized 11/24/2023 11/23/2024 3 3 Reason Onset Date Comments Diabetes 12/28/2023 BGL Reason Comments Nausea Vomiting Pt [facility] due to N/V for 1 month. Upon [...] Pain Vomiting Pt presents to er [facility] for nausea and abd pain. Pt presents aox4 speaking in full and complete sentences. Pt states he has been sick since 2 weeks prior. Pt has recent urinary catheter placed due t urinary retention per pt. Catheter placed 1 week ago. Reason Onset Date Comments Diabetes 12/06/2023 BGL Reason Comments Hypoglycemia Patient reports from [facility] for low blood sugar. Facility states that it was 48. Patient was fed and EMS sugar was 76. On arrival to room BGM was 102. Reason Comments Hyperglycemia Pt is sent from [facility] for low BGT. Pt reports he has [...] Abdominal Pain [facility] Pt presents with abd pain, diarrhea, chest pain. Pt presents aox4 speaking in full and complete sentences. Chest Pain Nausea Specialty Diagnoses / Procedures Referred By Contac t Referred To Contact Diagnoses Acute cholecystitis Procedures . Grace Ackerman MD [address] [place] [address] Phone: tel: fax: [facility] Cardiac Progressive Care Unit PCU [address] [place] [address] Phone: tel: Referral ID Status Reason Start Date Expiration Date Visits Re quested Visits Authorized [id number] 1 1 Reason Onset Date Comments Diabetes [...] of gallbladder without cholecystitis without obstruction Procedures IN OFFICE/OUTPATIENT NEW HIGH MDM 60 MINUTES Rosy Ibarra, DIRECTOR OF COMMUNITY SERVICES - TELEPHOTO ENGINEER [address] [place] [address] Phone: tel:[phone] fax:[phone] [facility] Gastroenterology [facility] [address] [place] [address] Phone: tel: fax: Referral ID Status Reason Start Date Expiration Date Visits Requested Visits Authorized [id number] Pending Review Specialty Services Required 12/01/2024 12/01/2025 [...] of right leg above knee (HCC) Procedures IN OFFICE/OUTPATIENT NEW MODERATE MDM 45 MINUTES Jared Guzman [address] [place] [address] Phone: tel: fax: [facility] [address] [place] [address] Phone: tel: fax: Referral ID Status Reason Start Date Expiration Date Visits Requested Visits Authorized [id number] Pending Review Eval and Treat 01/24/2025 01/24/2026 [...] Reason Onset Date Comments Diabetes 05/07/2025 BGL Reason Onset Date Comments Advice Only 05/14/2025 Reason Onset Date Comments Missed Appointment 03/27/2025 Reschedule Diabetes 03/27/2025 BGL Reason Onset Date Comments Diabetes 05/31/2025 BGL Reason Onset Date Comments Care Coordination 05/31/2025 EGD Colon zoltan nder call Reason Onset Date Comments Diabetes 06/07/2025 BGL Reason Onset Date Comments Diabetes 06/19/2025 BGL Reason Onset Date Comments Diabetes 06/27/2025 BGL Reason Comments Nausea Headache Reason Onset Date Comments Diabetes 07/04/2025 BGL Ordered Prescriptions (unrec ognized section and [...] Inactive Member Role Status Dates Raj LEON, CUTTING MACHINE TENDER-C Attending Provider Active Team Status: Inactive Member Role Status Dates Jared Guzman Attending Provider Active Tile Machine Operator Relationship Specialty Start Date End Date LinnlolaJared [address] [place] [address] PCP - General 04/25/19 Tile Machine Operator Relationship Specialty Start Date End Date KarelyJared [address] [place] [address] PCP - General 04/25/19 Tile Machine Operator Relationship Specialty Start Date End Date KarelyJared [address] [place] [phone] PCP - General 04/25/19 Tile Machine Operator Relationship Specialty Start Date End Date Jared Guzman [address] [place] [phone] PCP - General 04/25/19 Tile Machine Operator Relationship Specialty Start Date End Date Jared Guzman [address] [place] [phone] PCP - General 04/25/19 Tile Machine Operator Relationship Specialty Start Date End Date Jared Guzman [address] [place] [phone] PCP - General 04/25/19 Tile Machine Operator Relationship Specialty Start Date End Date Jared Guzman [address] PCP - General 04/25/19 Tile Machine Operator Relationship Specialty Start Date End Date Jared Guzman [address] [place] [phone] PCP - General 04/25/19 Tile Machine Operator Relationship Specialty Start Date End Date Jared Guzman [address] [place] [phone] PCP - General 04/25/19 Tile Machine Operator Relationship Specialty Start Date End Date Jared Guzman [address] [place] [phone] PCP - General 04/25/19 Tile Machine Operator Relationship Specialty Start Date End Date Jared Guzman [address] [place] [phone] PCP - General 04/25/19 Tile Machine Operator Relationship Specialty Start Date End Date Jared Guzman [address] [place] [address] PCP - General 04/25/19 Tile Machine Operator Relationship Specialty Start Date End Date Jared Guzman [address] [place] [address] PCP - General 04/25/19 Tile Machine Operator Relationship Specialty Start Date End Date Jared Guzman [address] [place] [phone] PCP - General 04/25/19 Tile Machine Operator Relationship Specialty Start Date End Date Jared Guzman [address] [place] [address] PCP - General 04/25/19 Tile Machine Operator Relationship Specialty Start Date End Date Jared Guzman [address] [place] [address] PCP - General 04/25/19 Tile Machine Operator Relationship Specialty Start Date End Date Jared Guzman [address] [place] [phone] PCP - General 04/25/19 Tile Machine Operator Relationship Specialty Start Date End Date Jared Guzman [address] [place] [address] PCP - General 04/25/19 Tile Machine Operator Relationship Specialty Start Date End Date Jared Guzman [address] [place] [phone] PCP - General 04/25/19 Tile Machine Operator Relationship Specialty Start Date End Date Jared Guzman [address] [place] [phone] PCP - General 04/25/19 Tile Machine Operator Relationship Specialty Start Date End Date Jared Guzman [address] [place] [address] PCP - General 04/25/19 Tile Machine Operator Relationship Specialty Start Date End Date Jared Guzman [address] [place] [phone] PCP - General 04/25/19 Tile Machine Operator Relationship Specialty Start Date End Date Jared Guzman [address] [place] [phone] PCP - General 04/25/19 Tile Machine Operator Relationship Specialty Start Date End Date Jared Guzman [address] [place] [phone] PCP - General 04/25/19 Tile Machine Operator Relationship Specialty Start Date End Date Jared Guzman [address] [place] [phone] PCP - General 04/25/19 Tile Machine Operator Relationship Specialty Start Date End Date Jared Guzman [address] [place] [phone] PCP - General 04/25/19 Tile Machine Operator Relationship Specialty Start Date End Date Jared Guzman [address] [place] [phone] PCP - General 04/25/19 Tile Machine Operator Relationship Specialty Start Date End Date Jared Guzman [address] [place] [phone] PCP - General 04/25/19 Tile Machine Operator Relationship Specialty Start Date End Date Jared Guzman [address] [place] [address] PCP - General 04/25/19 Tile Machine Operator Relationship Specialty Start Date End Date Jared Guzman [address] [place] [phone] PCP - General 04/25/19 Tile Machine Operator Relationship Specialty Start Date End Date Jared Guzman [address] [place] [phone] PCP - General 04/25/19 Tile Machine Operator Relationship Specialty Start Date End Date Jared Guzman [address] [place] [phone] PCP - General 04/25/19 Tile Machine Operator Relationship Specialty Start Date End Date Jared Guzman [address] [place] [phone] PCP - General 04/25/19 Tile Machine Operator Relationship Specialty Start Date End Date Jared Guzman [address] [place] [address] PCP - General 04/25/19 Tile Machine Operator Relationship Specialty Start Date End Date Jared Guzman [address] [place] [address] PCP - General 04/25/19 Tile Machine Operator Relationship Specialty Start Date End Date Jared Guzman [address] [place] [address] PCP - General 04/25/19 Tile Machine Operator Relationship Specialty Start Date End Date Jared Guzman [address] [place] [address] PCP - General 04/25/19 Tile Machine Operator Relationship Specialty Start Date End Date Jared Guzman [address] [place] [address] PCP - General 04/25/19 Tile Machine Operator Relationship Specialty Start Date End Date Jared Guzman [address] [place] [address] PCP - General 04/25/19 Tile Machine Operator Relationship Specialty Start Date End Date Jared Guzman [address] [place] [address] PCP - General 04/25/19 Tile Machine Operator Relationship Specialty Start Date End Date Jared Guzman [address] [place] [address] PCP - General 04/25/19 Tile Machine Operator Relationship Specialty Start Date End Date Jared Guzman [address] [place] [address] PCP - General 04/25/19 Tile Machine Operator Relationship Specialty Start Date End Date Jared Guzman [address] [place] [phone] PCP - General 04/25/19 Tile Machine Operator Relationship Specialty Start Date End Date Jared Guzman [address] [place] [address] PCP - General 04/25/19 [facility] Other Attendant 01/30/25 Tile Machine Operator Relationship Specialty Start Date End Date Jared Guzman [address] [place] [address] PCP - General 04/25/19 Alejandro Mandel APRN - CNP [address] [place] [address] Nurse Practitioner Nurse Practitioner 02/01/25 [facility] Other Attendant 01/30/25 Team Status: Inactive Member [...] December 05, 2024 End: December 05, 2024 Tile Machine Operator Relationship Specialty Start Date End Date Jared Guzman [address] [place] [phone] PCP - General 04/25/19 Alejandro Mandel APRN - TELEPHOTO ENGINEER [address] [place] [address] Nurse Practitioner Nurse Practitioner 02/01/25 [facility] Other Att[facility] 01/30/25 Tile Machine Operator Relationship Specialty Start Date End Date Jared Guzman [address] [place] [phone] PCP - General 04/25/19 Alejandro Mandel APRN - TELEPHOTO ENGINEER [address] [place] [address] Nurse Practitioner Nurse Practitioner 02/01/25 [facility] Other Attendant 01/30/25 Tile Machine Operator Relationship Specialty Start Date End Date Jared Guzman [address] [place] [address] PCP - General 04/25/19 Alejandro Mandel APRN - CNP [address] [place] [address] Nurse Practitioner Nurse Practitioner 02/01/25 [facility] Other Attendant 01/30/25 Team Status: Inactive Member Role Status Dates Jared LEON Attending Provider Active Sta rt: February 07, 2025 End: February 07, 2025 Team Status: Active Member Role Status Dates Jared LEON Attending Provider Active Sta rt: February 26, 2025 Tile Machine Operator Relationship Specialty Start Date End Date Jared Guzman [address] [place] [address] PCP - General 04/25/19 Alejandro Mandel APRN - TELEPHOTO ENGINEER [address] [place] [address] Nurse Practitioner Nurse Practitioner 02/01/25 [facility] Other Attendant 01/30/25 Team Status: Inactive Member Role Status Dates Jared LEON Attending Provider Active Sta rt: February 26, 2025 End: February 26, 2025 Jared LEON Referring Provider Active Sta rt: February 26, 2025 End: February 26, 2025 Tile Machine Operator Relationship Specialty Start Date End Date Jared Guzman [address] [place] [address] PCP - General 04/25/19 Alejandro Mandel APRN - CNP [address] [place] [address] Nurse Practitioner Nurse Practitioner 02/01/25 [facility] Other Attendant 01/30/25 Tile Machine Operator Relationship Specialty Start Date End Date Jared Guzman [address] [place] [phone] PCP - General 04/25/19 Alejandro Mandel APRN - TELEPHOTO ENGINEER [address] [place] [address] Nurse Practitioner Nurse Practitioner 02/01/25 [facility] Other Attendant 01/30/25 Tile Machine Operator Relationship Specialty Start Date End Date Jared Guzman [address] [place] [address] PCP - General 04/25/19 Alejandro Mandel DIRECTOR OF COMMUNITY SERVICES - TELEPHOTO ENGINEER [address] [place] [address] Nurse Practitioner Nurse Practitioner 02/01/25 [facility] Other Attendant 01/30/25 Tile Machine Operator Relationship Specialty Start Date End Date Jared Guzman [address] [place] [address] PCP - General 04/25/19 Alejandro Mandel DIRECTOR OF COMMUNITY SERVICES - TELEPHOTO ENGINEER [address] [place] [address] Nurse Practitioner Nurse Practitioner 02/01/25 [facility] Other Attendant 01/30/25 Tile Machine Operator Relationship Specialty Start Date End Date Jared Guzman [address] [place] [address] PCP - General 04/25/19 Alejandro Mandel APRN - CNP [address] [place] [address] Nurse Practitioner Nurse Practitioner 02/01/25 [facility] Other Attendant 01/30/25 Tile Machine Operator Relationship Specialty Start Date End Date Jared Guzman [address] [place] [address] PCP - General 04/25/19 Alejandro Mandel APRN - TELEPHOTO ENGINEER [address] [place] [address] [address] [place] [address] Nurse Practitioner Nurse Practitioner 02/01/25 [facility] Other Attendant 01/30/25 Tile Machine Operator Relationship Specialty Start Date End Date Jared Guzman [address] [place] [phone] PCP - General 04/25/19 Alejandro Mandel APRN - TELEPHOTO ENGINEER [address] [place] [address] Nurse Practitioner Nurse Practitioner 02/01/25 [facility] Other Attendant 01/30/25 Tile Machine Operator Relationship Specialty Start Date End Date Jared Guzman [address] [place] [phone] PCP - General 04/25/19 Alejandro Mandel APRN - TELEPHOTO ENGINEER [address] [place] [address] Nurse Practitioner Nurse Practitioner 02/01/25 [facility] Other Attendant 01/30/25 Tile Machine Operator Relationship Specialty Start Date End Date Jared Guzman [address] [facility] [address] [place] [phone] PCP - General 04/25/19 Alejandro Mandel APRN - TELEPHOTO ENGINEER [address] [place] [address] Nurse Practitioner Nurse Practitioner 02/01/25 [facility] Other Attendant 01/30/25 Scheduled Active and Recently [...] - Provider: Suzanne Sen RN - Reason: NPO)2020 (Given - Provider: Margo Alexis RN) 0900 (Given - Provider: Suzanne Sen RN)2100 (Given - Provider: Shaneka Robertson RN) 0900 (Given - Provider: David Lui RN) ARIPiprazole (Abilify) tablet 10 mg 10 [...] 40 mg, Oral, Daily, First dose on 8/21/23 at 0900 0723 (Not Given - Provider: Suzanne Sen RN - Reason: NPO) 0859 (Given - Provider: Suzanne Sen RN) 0846 (Given - Provider: David Lui RN) gabapentin (Neurontin) capsule 100 mg 100 mg, Oral, 2 times daily, First dose on Wed06/28/23 at 0900 0724 (Not Given - Provider: Suzanne Sen RN - Reason: NPO)2017 (Given - Provider: Margo Alexis RN) 0900 (Given - Provider: Suzanne Sen RN)2129 (Given - Provider: Shaneka Robertson, PASTORA) 0846 (Given - Provider: David Lui, PASTORA) Insulin Lispro (Humalog) injection 0-18 Units (CANCELED) [...] lee notified) 1131 (Given - Provider: David Lui, PASTORA)1326 (Given - Provider: David Lui RN) lisinopril tablet 40 mg 40 mg, Oral, Every 24 hours, First dose on Wed06/28/23 at 0900 0717 (Not Given - Provider: Suzanne Sen RN - Reason: NPO) 0859 (Given - Provider: Suzanne Sen RN) 0846 (Given - Provider: David Lui, PASTORA) megestrol (Megace) tablet 20 mg 20 mg, Oral, 2 times daily, First dose on Wed06/28/23 at 0900, HAZARDOUS - Handle with care 0716 (Not Given - Provider: Suzanne Sen RN - Reason: NPO)2018 (Given - Provider: Margo Alexis RN) 0915 (Given - Provider: Suzanne Sen RN)2143 (Given - Provider: Shaneka Robertson RN) 0852 (Given - Provider: David Lui, PASTORA) metoclopramide (Reglan) tablet 10 mg 10 mg, Oral, 4 times daily, First dose on Wed06/28/23 at 0900 0717 (Not Given - Provider: Suzanne Sen RN - Reason: NPO)1101 (Not Given - Provider: Suzanne Sen RN - Reason: NPO)1546 (Given - Provider: Suzanne Sen RN)2017 (Given - Provider: Margo Alexis RN) 0900 (Given - Provider: Suzanne Sen RN)1300 (Not [...] RN) 0628 (Given - Provider: Shaneka Robertson, PASTORA) polyethylene glycol (PEG) 3350 (Miralax) packet 17 g 17 g, Oral, Daily, First dose on Wed06/28/23 at 0900 0724 (Not Given - Provider: Suzanne Sen RN - Reason: NPO) 0859 (Given - Provider: Suzanne Sen RN) 0846 (Given - Provider: David Lui, RN) potassium chloride (Klor-Con) packet 20 mEq 20 [...] Alexis RN)0403 (Rate/Dose Verify - Provider: Margo Alexis RN)0511 (New Bag - Provider: Margo Alexis RN)2137 (New Bag - Provider: Shaneka Robertson [...] mg from all sources in 24 hours. 901 (See Alternative - Provider: Suzanne Sen RN) [...] before administering. 2018 (Given - Provider: Margo Alexis RN) polyethylene glycol (PEG) 3350 (Miralax) packet [...] mL/hr, Administer over 30 Minutes, Once, On Wed08/08/23 at 1150, For 1 dose, Mini-Bag Plus [...] mg (COMPLETED) 8 mg, IntraVENous, Once, On Wed08/08/23 at 0645, For 1 dose, If oral [...] dose 0653 (New Bag - Prov ider: Tayna Contreras RN)0753 (Stopped - Provider: Karlos Garcia RN) sodium chloride 0.9 % bolus 1,000 [...] 0940 (Given - Provider: Kota Luque RN) atorvastatin (Lipitor) tablet 10 mg 10 mg, Oral, Daily, First dose on Wed08/18/23 at 0900 0828 (Given - Provider: Olimpia Mustafa RN) 0940 (Given - Provider: Kota Luque RN) cefTRIAXone (Rocephin) 1,000 mg in sodium chloride 0.9 % 50 mL IVPB Mini-Bag Plus (COMPLETED) 1,000 mg, IntraVENous, at 100 mL/hr, Administer over 30 Minutes, Once, On Wed08/17/23 at 2020, For 1 dose, Mini-Bag Plus bag, Suspected Indication (Select all that apply): Urinary Tract Infection 2143 (New Bag - Provider: Anne Krueger RN)221 (Stopped - Provider: Anne Krueger RN) clotrimazole [...] 1 dose 1758 (Given - Provider: Hebert Hill RN) dilTIAZem CD (Cardizem CD) 24 hr [...] dose 1342 (Given - Provider: Hebert Hill, PASTORA) lisinopril tablet 40 mg 40 mg, Oral, Daily, First dose on Wed08/18/23 at 0900 0828 (Given - Provider: Olimpia Mustafa RN) 0940 (Given - Provider: Kota Luque, PASTORA) megestrol (Megace) tablet 20 mg 20 mg, [...] Kota Luque RN)1225 (Given - Provider: Kota Luuqe, PASTORA)1641 (Given - Provider: Kota Luque RN)2100 (Canceled [...] at 0900 0900 (Given - Provider: Olimpia Mustafa RN) 0940 (Given - Provider: Kota Luque RN) potassium chloride CR (Klor-Con M20) ER tablet [...] 1342 (New Bag - Provider: Hebert Hill, PASTORA)1521 (Stopped - Provider: Hebert Hill RN) PRN Medication Order 08/17/2023 08/18/2023 08/19/2023 acetaminophen [...] Nightly, First dose on Wed10/07/23 at 2100 2047 (Given - Provider: Lashawn Chinchilla, PASTORA) 2007 (Given - Provider: Lashawn Chinchilla RN) [...] 1700, Do not crush, chew, or split. 943 (Given - Provider: Joyce Moore LPN) 914 [...] 914 (Given - Provider: Gricelda Harding RN) gabapentin (Neurontin) capsule 100 mg 100 mg, Oral, 2 times daily, First dose on Wed10/07/23 at 2100 0944 (Given - Provider: Joyce Moore LPN)2044 (Given - Provider: Lashawn Chinchilla RN) 09 (Given - Provider: Gricelda Harding, RN)2007 (Given - Provider: Lashawn Chinchilla, RN) heparin flush injection 250 Units 250 Units, IntraCATHeter, Every 12 hours, First dose on Wed10/12/23 at 1515, Each lumen. Do NOT administer to lumens with continuous fluids currently infusing. Line Care. Use 10 mL or larger syringe. 0332 (Given - Provider: Roz Su RN)1511 (Given - Provider: Tanya Walker RN) 0405 (Given - Provider: Lashawn Chinchilla, PASTORA)1515 (Not Given - Provider: Gricelda Harding, PASTORA - Reason: Other) Insulin Lispro (Humalog) injection [...] 10/14/23 at 2100 204 (Given - Provider: Lahsawn Chinchilla RN) insulin NPH (Isophane) (HumuLIN N,NovoLIN [...] Oral, Nightly, First dose on Wed10/07/23 at 2099 2044 (Given - Provider: Lashawn Chinchilla RN) [...] Walker RN) 0405 (Given - Provider: Lashawn Chinchilla RN)1719 (Given - Provider: Gricelda Harding RN) [...] 8 hours PRN, nausea, vomiting, Starting on Wed10/14/23 at 1555, Patient should allow tablet to dissolve on tongue. Do not remove from blister pack until just before administering. polyethylene glycol (PEG) 3350 (Miralax) packet 17 g 17 g, Oral, Daily PRN, constipation, Starting on Wed10/07/23 at 1654, 1st line for treatment of [...] 8 hours PRN, nausea, vomiting, Starting on Wed10/14/23 at 1555, Patient should allow tablet to [...] (Self Administered Via Pump - Provider: Ezio Dnulap RN) gabapentin (Neurontin) capsule 100 mg 100 [...] Hess RN)1425 (Given - Provider: Morenita Hess RN)210 (Given - Provider: Gill Edmonds RN) 102 (Given - Provider: Ezio Dunlap RN)145 (Given - Provider: Ezio Dunlap RN)2010 (Given [...] 2100 0918 (Given - Provider: Morenita Hess RN)210 (Given - Provider: Gill Edmonds RN) 102 [...] water. 2108 (Given - Provider: Gill Edmonds, PASTORA) 2010 (Given - Provider: Gill Edmonds RN) [...] Hess RN)2109 (Given - Provider: Gill Edmonds, PASTORA) 1027 (Given - Provider: Ezio Dunlap, PASTORA)2015 (Given - Provider: Gill Edmonds RN) 0822 (Self Administered Via Pump - Provider: Ezio Dunlap RN) pantoprazole (ProtoNix) 40 mg in sodium chloride (PF) 0.9 % 10 mL injection 40 mg, IntraVENous, Administer over 2 Minutes, 2 times daily, First dose on Gabi 12/12/24 at 0600, Reconstitute with 10 ml NS. [...] RN)2015 (Given - Provider: Gill Edmonds RN) 08 (Self Administered Via Pump - Provider: Ezio [...] sedation for opioid reversal - MUST notify shoe salesperson provider immediately after first dose, may give [...] no further options ordered. Scheduled Medication Order 07/09/2025 07/10/2025 07/11/2025 cephalexin (Keflex) capsule 500 mg (COMPLETED) 500 mg, Oral, Once, On Wed07/10/25 at 2240, For 1 dose, Suspected Indication (Select all that apply): Urinary Tract Infection 2250 (Given - Provider: Nicolle Frazier RN) ondansetron (Zofran) injection 4 mg (COMPLETED) 4 mg, IntraVENous, Once, On Wed07/10/25 at 1720, For 1 dose 1832 (Given - Provider: Maria Luisa Palmer RN) sodium chloride 0.9 % bolus 1,000 mL (COMPLETED) 1,000 mL, IntraVENous, at 1,000 mL/hr, Administer over 1 Hours, Once, On Wed07/10/25 at 1720, For 1 dose 1832 (New Bag - Provider: Eliza Palmer RN)1955 (Stopped - Provider: Nicolle Frazier RN) PRN Medication Order 07/09/2025 07/10/2025 07/11/2025 iopamidol (Isovue-370) 76 % injection 100 mL (COMPLETED) 100 mL, IntraVENous, IMG once PRN, contrast, Starting on Wed07/10/25 at 1955, For 1 dose 1957 (Given - Provider: Macrina Tabares, RT (R)) FOR RECORDS PERTAINING TO PATIENTS WHO ARE [...] BE BASED ON THE PRIMARY CLINICAL RECORDS. [facility]. provides no warranty or guarantee of the accuracy [phone] in [id number] [id number]
[2025-07-12 08:07] LABS: Hematocrit 34.8 % (37-47); Hemoglobin 10.8 g/dL (12.0-15.0); Mean Corp Hgb Conc 31.0 g/dL (32-36); Mean Corpuscular Volume 84.5 fL (81-99); Mean Platelet Vol. 10.8 fl (6.2-12.0); Platelet Count 316 K/mm3 (150-450); RBC Distribution Width CV 14.3 % (11.6-14.6); RBC Distribution Width SD 44.1 fl (35.1-43.9); Red Blood Count 4.12 M/mm3 (4.2-5.4); White Blood Count 11.9 K/mm3 (4.4-11.0)
[2025-07-12 08:22] LABS: Anion Gap 10 (5-15); BUN 18 mg/dL (4-19); BUN/Creat Ratio 28.4 RATIO (10-20); Calcium,Total 8.5 mg/dL (7.6-11.0); Carbon Dioxide 27.3 mmol/L (21.0-32.0); Chloride 99 mmol/L (98-108); Glucose 76 mg/dL (70-99); Potassium 4.2 mmol/L (3.3-5.1)
== END ==
LOC: OLS.SANC 05:00
PROVIDERS: Visit Provider Internal Medicine
DX: I10 Essential (primary) hypertension (principal); E11.9 Type 2 diabetes mellitus without complications; E78.5 Hyperlipidemia, unspecified
CPT/HCPCS: 36415; 80048; 85027

== ENCOUNTER → 2025-07-19 | Outpatient (REF) | payer MEDICARE, MEDICAID, SELFPAY ==
--- OUTSIDE RECORDS SUMMARY | 2025-07-19 05:04 | XMS RPT_ITS ---
[facility] Phone: Left TBI 0.95 [employer] Phone: Left toe pressure 138 mmHg [employer] Phone: Right arm BP 145 [facility] Phone: No Panel Informationon 02-09 Left side [...] cuff method used due to body habitus. [employer] Details A spectral Doppler analysis ultrasound was performed. Pulsed volume recording (PVR) and photo plethysmography was performed. The exam was performed with the patient in the supine position. Overall the study quality was adequate. Study was technically difficult due to: body habitus. CV CPACS 36on 02-08-2025 36 Normal [facility] [address] [facility] Radiology called stating that CT chest wo IV contrast order will before its completion. Requested new order to be placed. Please advise. Normal [facility] 36on 02-07-2025 36 Patient's BGL Normal [facility] Anion gap in Serum or Plasma Ordered By: Jared Guzman on 02-07-2025 Anion gap [Moles/Vol] 10 mmol/L 5-15 [facility] BUN/creatinine ratioOrdered By: Jared Guzman on 02-07-2025 Urea nitrogen/Creatinine [Mass ratio] 21.4 mg/mg High 10- [facility] Basic Metabolic Profile (BMP )on 02-07-2025 BUN/CRE 21.4 RATIO High - [facility] Comment on above: Order Comment: 103.1 Performed By: #### M 100.2200, L400.2010 #### [facility] [address] [place], [place], [id number] Calcium [Mass/Vol] 9.0 mg/dL Normal 7.6-11.0 [facility] Comment on above: Order Comment: 103.1 Performed By: #### M 100.2199, #### [facility] [address] [place], [address] Chloride [Moles/Vol] 102 mmol/L Normal 98-108 [facility] Comment on above: Order Comment: 103.1 Performed By: #### M 100, #### [facility] [address] [place], [address] CO2 [Moles/Vol] 27.2 mmol/L Normal 21.0-32.0 [facility] Comment on above: Order Comment: 103.1 Performed By: #### M 100, #### [facility] [address] [place], [address] Creatinine [Mass/Vol] 0.56 mg/dL Low 0.70-1.20 [facility] Comment on above: Order Comment: 103.1 Performed By: #### M , #### [facility] [address] [place], [address] GAP 10 Normal 5-15 [facility] Comment on above: Order Comment: 103.1 Performed By: #### M , #### [facility] [address] [place], [address] GFR/1.73 sq M.predicted among non-blacks MDRD (S/P/Bld) [Vol rate/Area] 106 mL/min/{1.73_m2} Normal >60 [facility] Comment on above: Order Comment: 103.1 Result Comment: mL/m in/1.73m2 CKD-EPI Creatinine Equation (2020) Performed By: #### M 100.2199, L4 #### [facility] [address] [place], [address] Glucose [Mass/Vol] 113 mg/dL High 70-99 [facility] Comment on above: Order Comment: 103.1 Performed By: #### M 100.2199, .2010 #### [facility] [address] [place], [address] Potassium [Moles/Vol] 4.2 mmol/L Normal 3.3-5.1 [facility] Comment on above: Order Comment: 103.1 Performed By: #### M 100.2199, #### [facility] [address] [place], [address] Sodium [Moles/Vol] 140 mmol/L Normal 133-145 [facility] Comment on above: Order Comment: 103.1 Performed By: #### M , #### [facility] [address] [place], [address] Urea nitrogen [Mass/Vol] 12 mg/dL Normal 4-19 [facility] Comment on above: Order Comment: 103.1 Performed By: #### M , #### [facility] [address] [place], [address] CBC-Complete Blood Cnt No Di ffon 02-07-2025 Erythrocyte distribution width (RBC) [Ratio] 14.5 % Normal 11.6-14.6 [facility] Comment on above: Order Comment: 103.1 Performed By: #### M .2199, L4 #### [facility] [address] [place], [address] Hematocrit (Bld) [Volume fraction] 34.7 % Low 37-47 [facility] Comment on above: Order Comment: 103.1 Performed By: #### M 100.2199, #### [facility] [address] [place], [address] Hemoglobin (Bld) [Mass/Vol] 11.1 g/dL Low 12.0-15.0 [facility] Comment on above: Order Comment: 103.1 Performed By: #### M , .2010 #### [facility] [address] [place], [address] MCH (RBC) [Entitic mass] 27.1 pg Normal 27.0-32.0 [facility] Comment on above: Order Comment: 103.1 Performed By: #### M , .2010 #### [facility] [address] [place], [address] MCHC (RBC) [Mass/Vol] 32.0 g/dL Normal 32-36 [facility] Comment on above: Order Comment: 103.1 Performed By: #### M , .2010 #### [facility] [address] [place], [address] MCV (RBC) [Entitic vol] 84.6 fL Normal 81-99 [facility] Comment on above: Order Comment: 103.1 Performed By: #### M , #### [facility] [address] [place], [address] Platelet mean volume (Bld) [Entitic vol] 10.3 fL Normal 6.2-12.0 [facility] Comment on above: Order Comment: 103.1 Performed By: #### M , #### [facility] [address] [place], [address] Platelets (Bld) [#/Vol] 353 10*3/uL Normal 150-450 [facility] Comment on above: Order Comment: 103.1 Performed By: #### M , .2010 #### [facility] [address] [place], [address] RBC (Bld) [#/Vol] 4.10 10*6/uL Low 4.2-5.4 [facility] Comment on above: Order Comment: 103.1 Performed By: #### M 100.2200, L4.2010 #### [facility] [address] [place], [address] RDW SD 44.6 fl High 35.1-43.9 [facility] Comment on above: Order Comment: 103.1 Performed By: #### M 100.2200, L400.2010 #### [facility] [address] [place], [address] WBC (Bld) [#/Vol] 8.1 10*3/uL Normal 4.4-11.0 [facility] Comment on above: Order Comment: 103.1 Performed By: #### M 100.2200, L4.2010 #### [facility] [address] [place], [address] Carbon dioxide, total [Moles /volume] in Central venous bloodOrdered By: Jared Guzman on 02-07-2025 CO2 [Moles/Vol] 27.2 mmol/L 21.0-32.0 [facility] Chloride assayOrdered By: Marcel Piper on 02-07-2025 Chloride [Moles/Vol] 102 mmol/L 98-108 [facility] Erythrocyte distribution wid th (RBC) [Ratio]Ordered By: Jared Guzman on 02-07-2025 Erythrocyte distribution width (RBC) [Entitic vol] 44.6 fL High 35.1-43.9 [facility] Erythrocyte distribution wid th ratioOrdered By: Jared Guzman on 02-07-2025 Erythrocyte distribution width (RBC) [Ratio] 14.5 % 11.6-14.6 [facility] Erythrocyte distribution wid th standard deviationOrdered By: Jared Guzman on 02-07-2025 Erythrocyte distribution width (RBC) [Ratio] 44.6 fl High 35.1-43.9 [facility] GFR/1.73 sq M.predicted belinda g non-blacks MDRD (S/P/Bld) [Vol rate/Area]Ordered By: Jared Guzman on 02-07-2025 Estimated GFR (MDRD) Non-Af Amer 106 >60 [facility] Comment on above: mL/min/1.73m2 CKD-EP I Creatinine Equation (2020) Glomerular filtration rate ( GFR) estimation/1.73 sq m using serum, plasma, or whole bOrdered By: Jared Guzman on 02-07-2025 GFR/1.73 sq M.predicted among non-blacks MDRD (S/P/Bld) [Vol rate/Area] 106 mL/min/{1.73_m2} >60 [facility] Comment on above: mL/min/1.73m2 CKD-EP I Creatinine Equation (2020) Hematocrit Auto (Bld) [Volum e fraction]Ordered By: Jared Guzman on 02-07-2025 Hematocrit (Bld) [Volume fraction] 34.7 % Low 37-47 [facility] Hemoglobin measurementOrdere d By: Jared Guzman on 02-07-2025 Hemoglobin (Bld) [Mass/Vol] 11.1 g/dL Low 12.0-15.0 [facility] MCV (mean corpuscular volume ) determinationOrdered By: Jared Guzman on 02-07-2025 MCV (RBC) [Entitic vol] 84.6 fL 81-99 [facility] Mean corpuscular hemoglobin (MCH) determinationOrdered By: Jared Guzman on 02-07-2025 MCH (RBC) [Entitic mass] 27.1 pg 27.0-32.0 [facility] Mean corpuscular hemoglobin concentration (MCHC) determinationOrdered By: Jared Guzman on 02-07-2025 MCHC (RBC) [Mass/Vol] 32.0 g/dL 32-36 [facility] Mean platelet volume determi nationOrdered By: Jared Guzman on 02-07-2025 Platelet mean volume (Bld) [Entitic vol] 10.3 fL 6.2-12.0 [facility] Platelet countOrdered By: Marcel Piper on 02-07-2025 Platelets (Bld) [#/Vol] 353 10*3/uL 150-450 [facility] Potassium (Unsp spec) [Mass/ Vol]Ordered By: Jared Guzman on 02-07-2025 Potassium [Moles/Vol] 4.2 mmol/L 3.3-5.1 [facility] Potassium measurement (mass/ volume)Ordered By: Jared Guzman on 02-07-2025 Potassium (Unsp spec) [Mass/Vol] 4.2 mmol/L 3.3-5.1 [facility] RBC Auto (Bld) [#/Vol]Ordere d By: Jared Guzman on 02-07-2025 RBC (Bld) [#/Vol] 4.10 10*6/uL Low 4.2-5.4 [facility] Serum creatinine measurement (mass/volume)Ordered By: Jared Guzman on 02-07-2025 Creatinine [Mass/Vol] 0.56 mg/dL Low 0.70-1.20 [facility] Serum glucose measurement (m ass/volume)Ordered By: Jared Guzman on 02-07-2025 Glucose [Mass/Vol] 113 mg/dL High 70-99 [facility] Serum or plasma calcium mauricio urement (mass/volume)Ordered By: Jared Guzman on 02-07-2025 Calcium [Mass/Vol] 9.0 mg/dL 7.6-11.0 [facility] Serum or plasma urea nitroge n measurement (mass/volume)Ordered By: Jared Guzman on 02-07-2025 Urea nitrogen [Mass/Vol] 12 mg/dL 4-19 [facility] Sodium levelOrdered By: Main Guzman on 02-07-2025 Sodium [Moles/Vol] 140 mmol/L 133-145 [facility] White blood cell (WBC) count Ordered By: Jared Guzman on 02-07-2025 WBC (Bld) [#/Vol] 8.1 10*3/uL 4.4-11.0 [facility] Progress Noteon 02-01-2025 Progress Note Normal [facility] 01-31-2025 36 Called SNF s/w Suma released message as written, she stated that she understood. Normal [facility] 01-30-2025 36 Normal [facility] 01-29-2025 36 Patient's BGL Normal [facility] 3601-19-2025 36 Faxed orders to ryder frias at fax #: [phone]. [facility] 01-17-2025 36 [facility] 36on 01-15-2025 36 Patients BGL [facility] 3601-11-2025 36 Called SNF s/w Sanjana released message as written, she stated that she understood and had no questions. [facility] 01-10-2025 36 Normal [facility] 3601-08-2025 36 Patient's BGL [facility] 01-02-2025 36 Labs Noted [facility] 01-01-2025 36 Requested BGLs and a recent CMP was received , please advise. [facility] 01-01-2025 37 Please send Ophthalmology Note once completed this year. Please note if any insulin doses are held on blood log. [facility] Progress Noteon 01-01-2025 Progress Note [facility] 12-29-2024 36 Called SNF s/w Ninfa released message as written, no insulin has been held. [facility] 12-28-2024 36 Called the nursing facility to schedule an appointment and spoke with Nabil, who stated that the pt nurse is not in today and that she will have her call our office when she is in. TY [facility] 36 ----- Message from JEREMY Bloom CNP sent at 12/21/2024 4:00 PM EST ----- Please schedule patient for EGD and colonoscopy-[facility] endoscopy. Please call nursing facility to schedule appointment. Thank you. [facility] 12-27-2024 36 [facility] Albumin to globulin ratioOrd ered By: Jared Guzman on 12-27-2024 Albumin/Globulin [Mass ratio] 0.8 {ratio} Low 0.9-2.4 [facility] Bilirubin, totalOrdered By: Jared Guzman on 12-27-2024 Bilirubin [Mass/Vol] 0.40 mg/dL 0.20-1.00 [facility] Comment on above: For patients on eltr ombopag therapy, use of Dimension Spray TBIL is not recommended. Blood urea nitrogen (BUN)/cr eatinine ratioOrdered By: Jared Guzman on 12-27-2024 Urea nitrogen/Creatinine [Mass ratio] 14.4 mg/mg 10-20 [facility] CBC-Complete Blood Cnt No Di ffon 12-27-2024 Erythrocyte distribution width (RBC) [Ratio] 14.6 % Normal 11.6-14.6 [facility] Comment on above: Order Comment: 103-1 Performed By: #### L 100.0500, L500.4100, L500.4050 #### [facility] [address] [place], [address] Hematocrit (Bld) [Volume fraction] 34.5 % Low 37-47 [facility] Comment on above: Order Comment: 103-1 Performed By: #### L 100.0500, L500.4100, L500.4050 #### [facility] [address] [place], [address] Hemoglobin (Bld) [Mass/Vol] 10.9 g/dL Low 12.0-15.0 [facility] Comment on above: Order Comment: 103-1 Performed By: #### L 100.0500, L500.4100, L500.4050 #### [facility] [address] [place], [address] MCH (RBC) [Entitic mass] 27.2 pg Normal 27.0-32.0 [facility] Comment on above: Order Comment: 103-1 Performed By: #### L 100.0500, L500.4100, L500.4050 #### [facility] [address] [place], [address] MCHC (RBC) [Mass/Vol] 31.6 g/dL Low 32-36 [facility] Comment on above: Order Comment: 103-1 Performed By: #### L 100.0500, L500.4100, L500.4050 #### [facility] [address] [place], [address] MCV (RBC) [Entitic vol] 86.0 fL Normal 81-99 [facility] Comment on above: Order Comment: 103-1 Performed By: #### L 100.0500, L500.4100, L500.4050 #### [facility] [address] [place], [address] Platelet mean volume (Bld) [Entitic vol] 10.3 fL Normal 6.2-12.0 [facility] Comment on above: Order Comment: 103-1 Performed By: #### L 100.0500, L500.4100, L500.4050 #### [facility] [address] [place], [address] Platelets (Bld) [#/Vol] 350 10*3/uL Normal 150-450 [facility] Comment on above: Order Comment: 103-1 Performed By: #### L 100.0500, L500.4100, L500.4050 #### [facility] [address] [place], [address] RBC (Bld) [#/Vol] 4.01 10*6/uL Low 4.2-5.4 [facility] Comment on above: Order Comment: 103-1 Performed By: #### L 100.0500, L500.4100, L500.4050 #### [facility] [address] [place], [address] RDW SD 45.5 fl High 35.1-43.9 [facility] Comment on above: Order Comment: 103-1 Performed By: #### L 100.0500, L500.4100, L500.4050 #### [facility] [address] [place], [address] WBC (Bld) [#/Vol] 6.9 10*3/uL Normal 4.4-11.0 [facility] Comment on above: Order Comment: 103-1 Performed By: #### L 100.0500, L500.4100, L500.4050 #### [facility] [address] [place], [address] Carbon dioxide measurementOr dered By: Jared Guzman on 12-27-2024 CO2 [Moles/Vol] 29.0 mmol/L 21.0-32.0 [facility] Chloride measurementOrdered By: Jared Guzman on 12-27-2024 Chloride [Moles/Vol] 104 mmol/L 98-107 [facility] Comprehensive Metabolic Prof ilon 12-27-2024 Albumin [Mass/Vol] 2.8 g/dL Low 3.2-5.0 [facility] Comment on above: Order Comment: 103-1 Performed By: #### L 100.0500, L500.4100, L500.4050 #### [facility] [address] [place], [address] Albumin/Globulin [Mass ratio] 0.8 {ratio} Low 0.9-2.4 [facility] Comment on above: Order Comment: 103-1 Performed By: #### L 100.0500, L500.4100, L500.4050 #### [facility] [address] [place], [address] ALK P 152 U/L High 45-117 [facility] Comment on above: Order Comment: 103-1 Performed By: #### L 100.0500, L500.4100, L500.4050 #### [facility] [address] [place], [address] ALT [Catalytic activity/Vol] 32 U/L Normal 13-56 [facility] Comment on above: Order Comment: 103-1 Performed By: #### L 100.0500, L500.4100, L500.4050 #### [facility] [address] [place], [address] AST [Catalytic activity/Vol] 19 U/L Normal 15-37 [facility] Comment on above: Order Comment: 103-1 Performed By: #### L 100.0500, L500.4100, L500.4050 #### [facility] [address] [place], [address] Bilirubin [Mass/Vol] 0.40 mg/dL Normal 0.20-1.00 [facility] Comment on above: Order Comment: 103-1 Result Comment: For patients on eltrombopag therapy, use of Dimension Spray TBIL is not recommended. Performed By: #### L 100.0500, L500.4100, L500.4050 #### [facility] [address] [place], [address] BUN/CRE 14.4 RATIO Normal 10-20 [facility] Comment on above: Order Comment: 103-1 Performed By: #### L 100.0500, L500.4100, L500.4050 #### [facility] [address] [place], [address] CA,Total 9.4 mg/dL Normal 8.5-10.1 [facility] Comment on above: Order Comment: 103-1 Performed By: #### L 100.0500, L500.4100, L500.4050 #### [facility] [address] [place], [address] Chloride [Moles/Vol] 104 mmol/L Normal 98-107 [facility] Comment on above: Order Comment: 103-1 Performed By: #### L 100.0500, L500.4100, L500.4050 #### [facility] [address] [place], [address] CO2 [Moles/Vol] 29.0 mmol/L Normal 21.0-32.0 [facility] Comment on above: Order Comment: 103-1 Performed By: #### L 100.0500, L500.4100, L500.4050 #### [facility] [address] [place], [address] Creatinine [Mass/Vol] 0.56 mg/dL Normal 0.55-1.02 [facility] Comment on above: Order Comment: 103-1 Result Comment: The validity of the calculated GFR GFRAA in patients over 70 years has not been determined. Clinical correlation is essential. Performed By: #### L 100.0500, L500.4100, L500.4050 #### [facility] [address] [place], [address] EST GFR - AA 144 mL/min Normal >60 [facility] Comment on above: Order Comment: 103-1 Result Comment: Afri can Green[place] GFR Calc Performed By: #### L 100.0500, L500.4100, L500.4050 #### [facility] [address] [place], [address] GAP 6 Normal 5-15 [facility] Comment on above: Order Comment: - Performed By: #### L 100.0500, L500.4100, L500.4050 #### [facility] [address] [place], [address] GFR/1.73 sq M.predicted among non-blacks MDRD (S/P/Bld) [Vol rate/Area] 119 mL/min/{1.73_m2} Normal >60 [facility] Comment on above: Order Comment: 103-1 Result Comment: Non- GFR Calc Performed By: #### L 100.0500, L500.4100, L500.4050 #### [facility] [address] [place], [address] Globulin (S) [Mass/Vol] 3.4 g/dL Normal 2.2-4.2 [facility] Comment on above: Order Comment: 103-1 Performed By: #### L 100.0500, L500.4100, L500.4050 #### [facility] [address] [place], [address] Glucose [Mass/Vol] 149 mg/dL High 74-106 [facility] Comment on above: Order Comment: 103-1 Result Comment: Fast ing Glucose result greater than or equal to 126 mg/dL suggests DIABETES MELLITUS per A.D.A. criteria. Performed By: #### L 100.0500, L500.4100, L500.4050 #### [facility] [address] [place], [address] Potassium [Moles/Vol] 3.9 mmol/L Normal 3.5-5.1 [facility] Comment on above: Order Comment: 103-1 Performed By: #### L 100.0500, L500.4100, L500.4050 #### [facility] [address] [place], [address] Sodium [Moles/Vol] 139 mmol/L Normal 136-145 [facility] Comment on above: Order Comment: 103-1 Performed By: #### L 100.0500, L500.4100, L500.4050 #### [facility] [address] [place], [address] T PROT 6.2 g/dL Low 6.4-8.2 [facility] Comment on above: Order Comment: 103-1 Performed By: #### L 100.0500, L500.4100, L500.4050 #### [facility] [address] [place], [address] Urea nitrogen [Mass/Vol] 8 mg/dL Normal 7-18 [facility] Comment on above: Order Comment: 103-1 Performed By: #### L 100.0500, L500.4100, L500.4050 #### [facility] [address] [place], [address] Erythrocyte distribution wid th ratioOrdered By: Jared Guzman on 12-27-2024 Erythrocyte distribution width (RBC) [Ratio] 14.6 % 11.6-14.6 [facility] Erythrocyte distribution wid th standard deviationOrdered By: Jared Guzman on 12-27-2024 Erythrocyte distribution width (RBC) [Entitic vol] 45.5 fL High 35.1-43.9 [facility] Erythrocyte distribution width (RBC) [Ratio] 45.5 fl High 35.1-43.9 [facility] Estimated glomerular filtrat ion rate (GFR) AmericanOrdered By: Jared Guzman on 12-27-2024 Estimated GFR (MDRD) Amer 144 mL/min >60 [facility] Comment on above: GFR Calc Glomerular filtration rate ( GFR) estimationOrdered By: Jared Guzman on 12-27-2024 Estimated GFR (MDRD) Non-Af Amer 119 mL/min >60 [facility] Comment on above: Non- GFR Calc GFR/1.73 sq M.predicted among non-blacks MDRD (S/P/Bld) [Vol rate/Area] 119 mL/min/{1.73_m2} >60 [facility] Comment on above: Non- GFR Calc Glucose measurementOrdered B y: Jared Guzman on 12-27-2024 Glucose [Mass/Vol] 149 mg/dL High 74-106 [facility] Comment on above: Fasting Glucose resu lt greater than or equal to 126 mg/dL suggests DIABETES MELLITUS per A.D.A. criteria. Hematocrit Auto (Bld) [Volum e fraction]Ordered By: Jared Guzman on 12-27-2024 Hematocrit (Bld) [Volume fraction] 34.5 % Low 37-47 [facility] Hemoglobin measurementOrdere d By: Jared Guzman on 12-27-2024 Hemoglobin (Bld) [Mass/Vol] 10.9 g/dL Low 12.0-15.0 [facility] High density lipoprotein (HD L) measurementOrdered By: Jared Guzman on 12-27-2024 Cholesterol in HDL [Mass/Vol] 43 mg/dL >40 [facility] Comment on above: The drugs N-Acetylcy steine and Metamizole may falsely depress this assay. Reference Range HDL <40 mg/dL Low HDL Cholesterol HDL >or= 60 mg/dL High HDL Cholesterol Laboratory - Chemistry and C hemistry - challengeOrdered By: Jared Guzman on 12-27-2024 AST [Catalytic activity/Vol] 19 U/L 15-37 [facility] Lipid Profileon 12-27-2024 Cholesterol [Mass/Vol] 178 mg/dL Normal 200 [facility] Comment on above: Order Comment: 103- Result Comment: <200 mg/dL Desirable 200-240 mg/dL Borderline >240 mg/dL High Risk Performed By: #### L 100.0500, L500.4100, L500.4050 #### [facility] [address] [place], [address] Cholesterol in HDL [Mass/Vol] 43 mg/dL Normal [facility] Comment on above: Order Comment: Result Comment: The drugs N-Acetylcysteine and Metamizole may falsely depress this assay. Reference Range HDL <40 mg/dL Low HDL Cholesterol HDL >or= 60 mg/dL High HDL Cholesterol Performed By: #### L 100.0500, L500.4100, L500.4050 #### [facility] [address] [place], [address] Cholesterol in LDL [Mass/Vol] 99 mg/dL Normal 0-130 [facility] Comment on above: Order Comment: 103 Performed By: #### L 100.0500, L500.4100, L500.4050 #### [facility] [address] [place], [address] Cholesterol in VLDL [Mass/Vol] 36 mg/dL Normal 5-40 [facility] Comment on above: Order Comment: 103-1 Performed By: #### L 100.0500, L500.4100, L500.4050 #### [facility] [address] [place], [address] Triglyceride [Mass/Vol] 181 mg/dL Normal [facility] Comment on above: Order Comment: 103-1 Result Comment: The drugs N-Acetylcysteine and Metamizole may falsely depress this assay. Serum Triglycerides Reference Interval Normal <150 mg/dL Borderline high 150 - 199 mg/dL High 200 - 499 mg/dL Very High > or = 500 mg/dL Performed By: #### L 100.0500, L500.4100, L500.4050 #### [facility] [address] [place], [address] Low density lipoprotein (LDL ) cholesterol measurementOrdered By: Jared Guzman on 12-27-2024 Cholesterol in LDL [Mass/Vol] 99 mg/dL 0-130 [facility] MCV (mean corpuscular volume ) determinationOrdered By: Jared Guzman on 12-27-2024 MCV (RBC) [Entitic vol] 86.0 fL 81-99 [facility] Mean corpuscular hemoglobin (MCH) determinationOrdered By: Jared Guzman on 12-27-2024 MCH (RBC) [Entitic mass] 27.2 pg 27.0-32.0 [facility] Mean corpuscular hemoglobin concentration (MCHC) determinationOrdered By: Jared Guzman on 12-27-2024 MCHC (RBC) [Mass/Vol] 31.6 g/dL Low 32-36 [facility] Mean platelet volume determi nationOrdered By: Jared Guzman on 12-27-2024 Platelet mean volume (Bld) [Entitic vol] 10.3 fL 6.2-12.0 [facility] Platelet countOrdered By: Marcel Piper on 12-27-2024 Platelets (Bld) [#/Vol] 350 10*3/uL 150-450 [facility] Potassium measurementOrdered By: Jared Guzman on 12-27-2024 Potassium [Moles/Vol] 3.9 mmol/L 3.5-5.1 [facility] RBC Auto (Bld) [#/Vol]Ordere d By: Jared Guzman on 12-27-2024 RBC (Bld) [#/Vol] 4.01 10*6/uL Low 4.2-5.4 [facility] Serum anion gap measurementO rdered By: Jared Guzman on 12-27-2024 Anion gap [Moles/Vol] 6 mmol/L 5-15 [facility] Serum globulin measurementOr dered By: Jared Guzman on 12-27-2024 Globulin (S) [Mass/Vol] 3.4 g/dL 2.2-4.2 [facility] Serum or plasma alanine jones otransferase (ALT) measurementOrdered By: Jared Guzman on 12-27-2024 ALT [Catalytic activity/Vol] 32 U/L 13-56 [facility] Serum or plasma albumin mauricio urement (mass/volume)Ordered By: Jared Guzman on 12-27-2024 Albumin [Mass/Vol] 2.8 g/dL Low 3.2-5.0 [facility] Serum or plasma alkaline abbey sphatase measurementOrdered By: Jared Guzman on 12-27-2024 ALP [Catalytic activity/Vol] 152 U/L High 45-117 [facility] Serum or plasma calcium mauricio urement (mass/volume)Ordered By: Jared Guzman on 12-27-2024 Calcium [Mass/Vol] 9.4 mg/dL 8.5-10.1 [facility] Serum or plasma cholesterol measurement (mass/volume)Ordered By: Jared Guzman on 12-27-2024 Cholesterol [Mass/Vol] 178 mg/dL <200 [facility] Comment on above: <200 mg/dL Desirable 200-240 mg/dL Borderline >240 mg/dL High Risk Serum or plasma creatinine m easurement (mass/volume)Ordered By: Jared Guzman on 12-27-2024 Creatinine [Mass/Vol] 0.56 mg/dL 0.55-1.02 [facility] Comment on above: The validity of the calculated GFR & GFRAA in patients over 70 years has not been determined. Clinical correlation is essential. Serum or plasma urea nitroge n measurement (mass/volume)Ordered By: Jared Guzman on 12-27-2024 Urea nitrogen [Mass/Vol] 8 mg/dL 7-18 [facility] Sodium levelOrdered By: Main Guzman on 12-27-2024 Sodium [Moles/Vol] 139 mmol/L 136-145 [facility] Total proteinOrdered By: Mike Guzman on 12-27-2024 Protein [Mass/Vol] 6.2 g/dL Low 6.4-8.2 [facility] Triglycerides measurementOrd ered By: Jared Guzman on 12-27-2024 Triglyceride [Mass/Vol] 181 mg/dL <199 [facility] Comment on above: The drugs N-Acetylcy steine and Metamizole may falsely depress this assay.Serum Triglycerides Reference Interval Normal <150 mg/dL Borderline high 150 - 199 mg/dL High 200 - 499 mg/dL Very High > or = 500 mg/dL Very low density lipoprotein (VLDL) cholesterol measurementOrdered By: Jared Guzman on 12-27-2024 Very low density lipoprotein (VLDL) cholesterol measurement 36 mg/dL 5-40 [facility] VLDL Cholesterol 36 mg/dL 5-40 [facility] White blood cell (WBC) count Ordered By: Jared Guzman on 12-27-2024 WBC (Bld) [#/Vol] 6.9 10*3/uL 4.4-11.0 [facility] 36on 12-22-2024 36 Please advise. [facility] 36 Normal [facility] 36 Normal [facility] 36 Faxed orders from ed dean to [facility] 3612-21-2024 36 Normal [facility] 3712-21-2024 37 Normal [facility] Progress Noteon 12-21-2024 Progress Note [facility] Progress Note Patient was verified by name and . [facility] 36on 12-20-2024 36 Patients BGL [facility] 36on 12-13-2024 36 Called SNF s/w Nabil released message as written, she stated that she understood and had no questions. [facility] 36on 12-12-2024 36 Normal [facility] 36on 12-11-2024 36 Patient's BGL [facility] Progress Noteon 12-07-2024 Progress Note [facility] 12-06-2024 36 LVM with intermediate(primary number in account) for home health scheduler to call back to schedule follow up appointment with [facility]. [facility] 36on 12-05-2024 36 Faxed recommendation s to [facility] at fax #: [phone]. Normal [facility] 36 [facility] 36 Patient's BGL [facility] Albumin to globulin ratioOrd ered By: Jared Guzman on 12-05-2024 Albumin/Globulin [Mass ratio] 0.9 {ratio} 0.9-2.4 [facility] Bilirubin, totalOrdered By: Jared Guzman on 12-05-2024 Bilirubin [Mass/Vol] 0.50 mg/dL 0.20-1.00 [facility] Comment on above: For patients on eltr ombopag therapy, use of Dimension Spray TBIL is not recommended. Blood urea nitrogen (BUN)/cr eatinine ratioOrdered By: Jared Guzman on 12-05-2024 Urea nitrogen/Creatinine [Mass ratio] 20.1 mg/mg High 10-20 [facility] CBC-Complete Blood Cnt No Di ffon 12-05-2024 Erythrocyte distribution width (RBC) [Ratio] 14.7 % High 11.6-14.6 [facility] Comment on above: Order Comment: 103.1 Performed By: #### M 100.2199, #### [facility] [address] [place], [address] Hematocrit (Bld) [Volume fraction] 35.9 % Low 37-47 [facility] Comment on above: Order Comment: 103.1 Performed By: #### M 100.0, #### [facility] [address] [place], [address] Hemoglobin (Bld) [Mass/Vol] 11.1 g/dL Low 12.0-15.0 [facility] Comment on above: Order Comment: 103.1 Performed By: #### M 100.2200, #### [facility] [address] [place], [address] MCH (RBC) [Entitic mass] 26.5 pg Low 27.0-32.0 [facility] Comment on above: Order Comment: 103.1 Performed By: #### M , .2010 #### [facility] [address] [place], [address] MCHC (RBC) [Mass/Vol] 30.9 g/dL Low 32-36 [facility] Comment on above: Order Comment: 103.1 Performed By: #### M , L4.2010 #### [facility] [address] [place], [address] MCV (RBC) [Entitic vol] 85.7 fL Normal 81-99 [facility] Comment on above: Order Comment: 103.1 Performed By: #### M , .2010 #### [facility] [address] [place], [address] Platelet mean volume (Bld) [Entitic vol] 10.2 fL Normal 6.2-12.0 [facility] Comment on above: Order Comment: 103.1 Performed By: #### M , .2010 #### [facility] [address] [place], [address] Platelets (Bld) [#/Vol] 355 10*3/uL Normal 150-450 [facility] Comment on above: Order Comment: 103.1 Performed By: #### M , L4.2010 #### [facility] [address] [place], [address] RBC (Bld) [#/Vol] 4.19 10*6/uL Low 4.2-5.4 [facility] Comment on above: Order Comment: 103.1 Performed By: #### M , L4.2010 #### [facility] [address] [place], [address] RDW SD 46.5 fl High 35.1-43.9 [facility] Comment on above: Order Comment: 103.1 Performed By: #### M 100, .2010 #### [facility] [address] [place] [place], [address] WBC (Bld) [#/Vol] 8.2 10*3/uL Normal 4.4-11.0 [facility] Comment on above: Order Comment: 103.1 Performed By: #### M , #### [facility] [address] [place], [address] Carbon dioxide measurementOr dered By: Jared Guzman on 12-05-2024 CO2 [Moles/Vol] 31.0 mmol/L 21.0-32.0 [facility] Chloride measurementOrdered By: Jared Guzman on 12-05-2024 Chloride [Moles/Vol] 99 mmol/L 98-107 [facility] Comprehensive Metabolic Prof ilon 12-05-2024 Albumin [Mass/Vol] 3.0 g/dL Low 3.2-5.0 [facility] Comment on above: Order Comment: 103.1 Performed By: #### M , .2010 #### [facility] [address] [place], [address] Albumin/Globulin [Mass ratio] 0.9 {ratio} Normal 0.9-2.4 [facility] Comment on above: Order Comment: 103.1 Performed By: #### M , L4.2010 #### [facility] [address] [place], [address] ALK P 137 U/L High 45-117 [facility] Comment on above: Order Comment: 103.1 Performed By: #### M 100, L4 #### [facility] [address] [place] [place], [address] ALT [Catalytic activity/Vol] 23 U/L Normal 13-56 [facility] Comment on above: Order Comment: 103.1 Performed By: #### M , #### [facility] [address] [place], [address] AST [Catalytic activity/Vol] 12 U/L Low 15-37 [facility] Comment on above: Order Comment: 103.1 Performed By: #### M , #### [facility] [address] [place], [address] Bilirubin [Mass/Vol] 0.50 mg/dL Normal 0.20-1.00 [facility] Comment on above: Order Comment: 103.1 Result Comment: For patients on eltrombopag therapy, use of Dimension Spray TBIL is not recommended. Performed By: #### M , #### [facility] [address] [place], [address] BUN/CRE 20.1 RATIO High 10-20 [facility] Comment on above: Order Comment: 103.1 Performed By: #### M , #### [facility] [address] [place], [address] CA,Total 9.0 mg/dL Normal 8.5-10.1 [facility] Comment on above: Order Comment: 103.1 Performed By: #### M , #### [facility] [address] [place], [address] Chloride [Moles/Vol] 99 mmol/L Normal 98-107 [facility] Comment on above: Order Comment: 103.1 Performed By: #### M , #### [facility] [address] [place], [address] CO2 [Moles/Vol] 31.0 mmol/L Normal 21.0-32.0 [facility] Comment on above: Order Comment: 103.1 Performed By: #### M , #### [facility] [address] [place], [address] Creatinine [Mass/Vol] 0.70 mg/dL Normal 0.55-1.02 [facility] Comment on above: Order Comment: 103.1 Result Comment: The validity of the calculated GFR GFRAA in patients over 70 years has not been determined. Clinical correlation is essential. Performed By: #### M , #### [facility] [address] [place], [address] EST GFR - AA 111 mL/min Normal >60 [facility] Comment on above: Order Comment: 103.1 Result Comment: Afri can Greenlandic GFR Calc Performed By: #### M , #### [facility] [address] [place], [address] GAP 6 Normal 5-15 [facility] Comment on above: Order Comment: 103.1 Performed By: #### M , #### [facility] [address] [place], [address] GFR/1.73 sq M.predicted among non-blacks MDRD (S/P/Bld) [Vol rate/Area] 92 mL/min/{1.73_m2} Normal >60 [facility] Comment on above: Order Comment: 103.1 Result Comment: Non- GFR Calc Performed By: #### M , #### [facility] [address] [place], [address] Globulin (S) [Mass/Vol] 3.3 g/dL Normal 2.2-4.2 [facility] Comment on above: Order Comment: 103.1 Performed By: #### M , #### [facility] [address] [place], [address] Glucose [Mass/Vol] 86 mg/dL Normal 74-106 [facility] Comment on above: Order Comment: 103.1 Performed By: #### M 100.2200, .2010 #### [facility] [address] [place], [address] Potassium [Moles/Vol] 3.0 mmol/L Low 3.5-5.1 [facility] Comment on above: Order Comment: 103.1 Performed By: #### M 100.2199, .2010 #### [facility] [address] [place], [address] Sodium [Moles/Vol] 136 mmol/L Normal 136-145 [facility] Comment on above: Order Comment: 103.1 Performed By: #### M 100.2199, .2010 #### [facility] [address] [place], [address] T PROT 6.3 g/dL Low 6.4-8.2 [facility] Comment on above: Order Comment: 103.1 Performed By: #### M 100.2199, .2010 #### [facility] [address] [place], [address] Urea nitrogen [Mass/Vol] 14 mg/dL Normal 7-18 [facility] Comment on above: Order Comment: 103.1 Performed By: #### M 100.2200, L4.2010 #### [facility] [address] [place], [address] Erythrocyte distribution wid th ratioOrdered By: Jared Guzman on 12-05-2024 Erythrocyte distribution width (RBC) [Ratio] 14.7 % High 11.6-14.6 [facility] Erythrocyte distribution wid th standard deviationOrdered By: Jared Guzman on 12-05-2024 Erythrocyte distribution width (RBC) [Entitic vol] 46.5 fL High 35.1-43.9 [facility] Estimated glomerular filtrat ion rate (GFR) AmericanOrdered By: Jared Guzman on 12-05-2024 Estimated GFR (MDRD) Amer 111 mL/min >60 [facility] Comment on above: GFR Calc Glomerular filtration rate ( GFR) estimationOrdered By: Jared Guzman on 12-05-2024 Estimated GFR (MDRD) Non-Af Amer 92 mL/min >60 [facility] Comment on above: Non- GFR Calc Glucose measurementOrdered B y: Jared Guzman on 12-05-2024 Glucose [Mass/Vol] 86 mg/dL 74-106 [facility] Hematocrit Auto (Bld) [Volum e fraction]Ordered By: Jared Guzman on 12-05-2024 Hematocrit (Bld) [Volume fraction] 35.9 % Low 37-47 [facility] Hemoglobin measurementOrdere d By: Jared Guzman on 12-05-2024 Hemoglobin (Bld) [Mass/Vol] 11.1 g/dL Low 12.0-15.0 [facility] - Chemistry and C hemistry - challengeOrdered By: Jared Guzman on 12-05-2024 AST [Catalytic activity/Vol] 12 U/L Low 15-37 [facility] MCV (mean corpuscular volume ) determinationOrdered By: Jared Guzman on 12-05-2024 MCV (RBC) [Entitic vol] 85.7 fL 81-99 [facility] Mean corpuscular hemoglobin (MCH) determinationOrdered By: Jared Guzman on 12-05-2024 MCH (RBC) [Entitic mass] 26.5 pg Low 27.0-32.0 [facility] Mean corpuscular hemoglobin concentration (MCHC) determinationOrdered By: Jared Guzman on 12-05-2024 MCHC (RBC) [Mass/Vol] 30.9 g/dL Low 32-36 [facility] Mean platelet volume determi nationOrdered By: Jared Guzman on 12-05-2024 Platelet mean volume (Bld) [Entitic vol] 10.2 fL 6.2-12.0 [facility] Platelet countOrdered By: Marcel Piper on 12-05-2024 Platelets (Bld) [#/Vol] 355 10*3/uL 150-450 [facility] Potassium measurementOrdered By: Jared Guzman on 12-05-2024 Potassium [Moles/Vol] 3.0 mmol/L Low 3.5-5.1 [facility] RBC Auto (Bld) [#/Vol]Ordere d By: Jared Guzman on 12-05-2024 RBC (Bld) [#/Vol] 4.19 10*6/uL Low 4.2-5.4 [facility] Serum anion gap measurementO rdered By: Jared Guzman on 12-05-2024 Anion gap [Moles/Vol] 6 mmol/L 5-15 [facility] Serum globulin measurementOr dered By: Jared Guzman on 12-05-2024 Globulin (S) [Mass/Vol] 3.3 g/dL 2.2-4.2 [facility] Serum or plasma alanine jones otransferase (ALT) measurementOrdered By: Jared Guzman on 12-05-2024 ALT [Catalytic activity/Vol] 23 U/L 13-56 [facility] Serum or plasma albumin mauricio urement (mass/volume)Ordered By: Jared Guzman on 12-05-2024 Albumin [Mass/Vol] 3.0 g/dL Low 3.2-5.0 [facility] Serum or plasma alkaline abbey sphatase measurementOrdered By: Jared Guzman on 12-05-2024 ALP [Catalytic activity/Vol] 137 U/L High 45-117 [facility] Serum or plasma calcium mauricio urement (mass/volume)Ordered By: Jared Guzman on 12-05-2024 Calcium [Mass/Vol] 9.0 mg/dL 8.5-10.1 [facility] Serum or plasma creatinine m easurement (mass/volume)Ordered By: Jared Guzman on 12-05-2024 Creatinine [Mass/Vol] 0.70 mg/dL 0.55-1.02 [facility] Comment on above: The validity of the calculated GFR & GFRAA in patients over 70 years has not been determined. Clinical correlation is essential. Serum or plasma urea nitroge n measurement (mass/volume)Ordered By: Jared Guzman on 12-05-2024 Urea nitrogen [Mass/Vol] 14 mg/dL 7-18 [facility] Sodium levelOrdered By: Main Guzman on 12-05-2024 Sodium [Moles/Vol] 136 mmol/L 136-145 [facility] Total proteinOrdered By: Mike Guzman on 12-05-2024 Protein [Mass/Vol] 6.3 g/dL Low 6.4-8.2 [facility] White blood cell (WBC) count Ordered By: Jared Guzman on 12-05-2024 WBC (Bld) [#/Vol] 8.2 10*3/uL 4.4-11.0 [facility] 36on 12-01-2024 36 Faxed new insulin or cary to [facility] at fax #: [phone]. Normal [facility] BASIC METABOLIC PANELon 11-09 Anion gap [Moles/Vol] 10 mmol/L Normal 3-13 [facility] Comment on above: Performed By: #### L AB15 ####Curriculum Designer: KEMAR ABEBE ([id number])[facility] ([facility])[address] [place] [address] Calcium [Mass/Vol] 9.0 mg/dL Normal 8.4-10.2 [facility] Comment on above: Performed By: #### L AB15 ####Curriculum Designer: KEMAR ABEBE ([id number])[facility] ([facility])[address] Chloride [Moles/Vol] 102 mmol/L Normal 98-107 [facility] Comment on above: Performed By: #### L AB15 ####Curriculum Designer: KEMAR ABEBE ([id number])[facility] ([facility])[address] CO2 [Moles/Vol] 25 mmol/L Normal 22-29 [facility] Comment on above: Performed By: #### L AB15 ####Curriculum Designer: KEMAR ABEBE ([id number])[facility] ([facility])[address] Creatinine [Mass/Vol] 0.67 mg/dL Normal [facility] Comment on above: Performed By: #### L AB15 ####Curriculum Designer: KEMAR ABEBE ([id number])[facility] ([facility])[address] GLOMERULAR FILTRATION RATE ML/MIN/1.73 SQ M.PREDICTED >90.0 Normal >60.0 [facility] Comment on above: Result Comment: Calc ulation based on the Chronic Kidney Disease Epidemiology Collaboration (CKD-EPI) equation refit without adjustment for race Performed By: #### L AB15 ####Curriculum Designer: KEMAR ABEBE ([id number])[facility] ([facility])[address] Glucose [Mass/Vol] 215 mg/dL High 74-100 [facility] Comment on above: Performed By: #### L AB15 ####Curriculum Designer: KEMAR ABEBE ([id number])[facility] ([facility])[address] [place] [address] [place] Potassium [Moles/Vol] 3.4 mmol/L Low 3.5-5.1 [facility] Comment on above: Result Comment: [facility] potassium values may be up to 0.5 mmol/L lower than serum values. Performed By: #### L AB15 ####Curriculum Designer: KEMAR ABEBE ([id number])[facility] ([facility])[address] [place] [address] [place] Sodium [Moles/Vol] 137 mmol/L Normal 136-145 [facility] Comment on above: Performed By: #### L AB15 ####Curriculum Designer: KEMAR ABEBE ([id number])[facility] ([facility])[address] [place] [address] [place] Urea nitrogen [Mass/Vol] 10 mg/dL Normal 9-23 [facility] Comment on above: Performed By: #### L AB15 ####Curriculum Designer: KEMAR ABEBE ([id number])[facility] ([facility])[address] Consulton 12-01-2024 Consult Normal [facility] ED Nursing Noteon 12-01-2024 ED Nursing Note Normal [facility] Progress Noteon 12-01-2024 Progress Note Normal [facility] Progress Note Normal [facility] Albumin to globulin ratioOrd ered By: Jared Guzman on 11-30-2024 Albumin/Globulin [Mass ratio] 0.4 {ratio} Low 0.9-2.4 [facility] Bilirubin, totalOrdered By: Jared Guzman on 11-30-2024 Bilirubin [Mass/Vol] 0.40 mg/dL 0.20-1.00 [facility] Comment on above: For patients on eltr ombopag therapy, use of Dimension Spray TBIL is not recommended. Blood urea nitrogen (BUN)/cr eatinine ratioOrdered By: Jared Guzman on 11-30-2024 Urea nitrogen/Creatinine [Mass ratio] 10.5 mg/mg 10-20 [facility] CBC WITH AUTO DIFFERENTIALon 11-30-2024 Basophils (Bld) [#/Vol] 0.0 10*3/uL Normal 0.0-0.2 [facility] Comment on above: Performed By: #### L [id number] ####Curriculum Designer: KEMAR ABEBE ([id number])[facility] ([facility])[address] [place] [address] Basophils/100 WBC (Bld) 0.2 % Normal 0.0-2.0 [facility] Comment on above: Performed By: #### L [id number] ####Curriculum Designer: KEMAR ABEBE ([id number])[facility] ([facility])[address] Eosinophils (Bld) [#/Vol] 0.1 10*3/uL Normal 0.0-0.5 [facility] Comment on above: Performed By: #### L [id number] ####Curriculum Designer: KEMAR ABEBE ([id number])[facility] ([facility])[address] Eosinophils/100 WBC (Bld) 1.2 % Normal 0.0-6.0 [facility] Comment on above: Performed By: #### L [id number] ####Curriculum Designer: KEMAR ABEBE ([id number])[facility] ([facility])[address] Erythrocyte distribution width (RBC) [Ratio] 14.7 % Normal 11.5-15.0 [facility] Comment on above: Performed By: #### L [id number] ####Curriculum Designer: KEMAR ABEBE ([id number])[facility] ([facility])[address] [place] [address] Hematocrit (Bld) [Volume fraction] 37.5 % Normal Male: 40.0-52.0 ; Female: 35.0-47.0 [facility] Comment on above: Performed By: #### L [id number] ####Curriculum Designer: KEMAR ABEBE ([id number])[facility] ([facility])[address] [place] [address] Hemoglobin (Bld) [Mass/Vol] 12.0 g/dL Normal 11.7-18.0 [facility] Comment on above: Performed By: #### L [id number] ####Curriculum Designer: KEMAR ABEBE ([id number])[facility] ([facility] [place] [address] IMMATURE GRANS % 0.6 % Normal 0.0-2.0 [facility] Comment on above: Performed By: #### L [id number] ####Curriculum Designer: KEMAR ABEBE ([id number])[facility] ([facility])[address] IMMATURE GRANS ABSOLUTE 0.1 10*3/uL High <0.1 [facility] Comment on above: Performed By: #### L [id number] ####Curriculum Designer: KEMAR ABEBE ([id number])[facility] (SBHLAB)[address] Lymphocytes (Bld) [#/Vol] 1.3 10*3/uL Normal 1.0-4.3 [facility] Comment on above: Performed By: #### L [id number] ####Curriculum Designer: KEMAR ABEBE ([id number])[facility] (SBHLAB)[address] Lymphocytes/100 WBC (Bld) 15.0 % Normal 15.0-45.0 [facility] Comment on above: Performed By: #### L [id number] ####Curriculum Designer: KEMAR ABEBE ([id number])[facility]ITAL[facility] KASPERN (SBHLAB)[address] MCH (RBC) [Entitic mass] 26.8 pg Normal 26.0-34.0 [facility] Comment on above: Performed By: #### L [id number] ####Curriculum Designer: KEMAR ABEBE ([id number])[facility]ITAL[facility] KASPERJermaine (SBHLAB)[address] MCHC 32.0 % Normal 30.5-36.0 [facility] Comment on above: Performed By: #### L [id number] ####Curriculum Designer: KEMAR ABEBE ([id number])[facility]ITAL[facility] [place] (SBHLAB)[address] MCV (RBC) [Entitic vol] 83.9 fL Normal 77.0-99.0 [facility] Comment on above: Performed By: #### L [id number] ####Curriculum Designer: KEMAR ABEBE ([id number])[facility]ITALWar[facility] WADEMARYN (SBHLAB)[address] Monocytes (Bld) [#/Vol] 0.3 10*3/uL Normal 0.0-0.9 [facility] Comment on above: Performed By: #### L [id number] ####Curriculum Designer: KEMAR ABEBE ([id number])[facility] (SBHLAB)[address] [place] [address] [place] Monocytes/100 WBC (Bld) 3.7 % Low 5.0-13.0 [facility] Comment on above: Performed By: #### L [id number] ####Curriculum Designer: KEMAR ABEBE ([id number])[facility] [place] (SB[facility]AB)[address] NEUTROPHILS ABSOLUTE 7.0 10*3/uL Normal 1.8-7.5 [facility] Comment on above: Performed By: #### L [id number] ####Curriculum Designer: KEMAR BAEBE ([id number])[facility] [place] (SBHLAB)[address] Neutrophils/100 WBC (Bld) 79.3 % Normal 38.0-82.0 [facility] Comment on above: Performed By: #### L [id number] ####Curriculum Designer: KEMAR ABEBE ([id number])[facility] [place] (SB[facility])[address] NRBC 0.0 /100 WBCs Normal 0.0-2.0 [facility] Comment on above: Performed By: #### L [id number] ####Curriculum Designer: KEMAR ABEBE ([id number])[facility] [place] (SB[facility])[address] [place] [address] [place] Platelet mean volume (Bld) [Entitic vol] 9.5 fL Normal 9.0-12.7 [facility] Comment on above: Performed By: #### L [id number] ####Curriculum Designer: KEMAR ABEBE ([id number])[facility] [place] (SB[facility])[address] [place] [address] [place] Platelets (Bld) [#/Vol] 384 10*3/uL Normal 140-440 [facility] Comment on above: Performed By: #### L [id number] ####Curriculum Designer: KEMAR ABEBE ([id number])[facility]ITALWar[facility] (SBHLAB)[address] RBC (Bld) [#/Vol] 4.47 10*6/uL Normal Male: 4.40-5.90; Female: 3.80-5.20 [facility] Comment on above: Performed By: #### L [id number] ####Curriculum Designer: KEMAR ABEBE ([id number])[facility] (SB[facility])[address] [place] [address] WBC (Bld) [#/Vol] 8.8 10*3/uL Normal 3.6-10.7 [facility] Comment on above: Performed By: #### L [id number] ####Curriculum Designer: KEMAR BANUELOSCER ([id number])[facility] (SB[facility])[address] [place] [address] CBC-Complete Blood Cnt No Di ffon 11-30-2024 Erythrocyte distribution width (RBC) [Ratio] 15.1 % High 11.6-14.6 [facility] Comment on above: Order Comment: 103-1 Performed By: #### L 100.0500, L500.4100, L500.4050 #### [facility] [address] [place], [address] Hematocrit (Bld) [Volume fraction] 34.7 % Low 37-47 [facility] Comment on above: Order Comment: 103-1 Performed By: #### L 100.0500, L500.4100, L500.4050 #### [facility] [address] [place], [address] Hemoglobin (Bld) [Mass/Vol] 10.8 g/dL Low 12.0-15.0 [facility] Comment on above: Order Comment: 103-1 Performed By: #### L 100.0500, L500.4100, L500.4050 #### [facility] [address] [place], [address] MCH (RBC) [Entitic mass] 26.6 pg Low 27.0-32.0 [facility] Comment on above: Order Comment: 103-1 Performed By: #### L 100.0500, L500.4100, L500.4050 #### [facility] [address] [place], [address] MCHC (RBC) [Mass/Vol] 31.1 g/dL Low 32-36 [facility] Comment on above: Order Comment: 103-1 Performed By: #### L 100.0500, L500.4100, L500.4050 #### [facility] [address] [place], [address] MCV (RBC) [Entitic vol] 85.5 fL Normal 81-99 [facility] Comment on above: Order Comment: 103-1 Performed By: #### L 100.0500, L500.4100, L500.4050 #### [facility] [address] [place], [address] Platelet mean volume (Bld) [Entitic vol] 10.0 fL Normal 6.2-12.0 [facility] Comment on above: Order Comment: 103-1 Performed By: #### L 100.0500, L500.4100, L500.4050 #### [facility] [address] [place], [address] Platelets (Bld) [#/Vol] 375 10*3/uL Normal 150-450 [facility] Comment on above: Order Comment: 103-1 Performed By: #### L 100.0500, L500.4100, L500.4050 #### [facility] [address] [place], [address] RBC (Bld) [#/Vol] 4.06 10*6/uL Low 4.2-5.4 [facility] Comment on above: Order Comment: 103-1 Performed By: #### L 100.0500, L500.4100, L500.4050 #### [facility] [address] [place], [address] RDW SD 46.6 fl High 35.1-43.9 [facility] Comment on above: Order Comment: 103-1 Performed By: #### L 100.0500, L500.4100, L500.4050 #### [facility] [address] [place], [address] WBC (Bld) [#/Vol] 8.4 10*3/uL Normal 4.4-11.0 [facility] Comment on above: Order Comment: 103-1 Performed By: #### L 100.0500, L500.4100, L500.4050 #### [facility] [address] [place], [address] COMPLETE URINALYSISon 2024 BACTERIA (#/HPF) IN URINE Negative Normal Negative [facility] Comment on above: Performed By: #### L [id number] ####Curriculum Designer: KEMAR ABEBE ([id number])[facility] ([facility])[address] [place] [address] BILIRUBIN, TOTAL PRESENCE IN URINE Negative Normal Negative [facility] Comment on above: Performed By: #### L [id number] ####Curriculum Designer: KEMAR ABEBE ([id number])[facility] ([facility])[address] [place] [address] Clarity (U) Clear Normal Clear [facility] Comment on above: Performed By: #### L [id number] ####Curriculum Designer: KEMAR ABEBE ([id number])[facility] ([facility])[address] [place] [address] Color (U) Light Yellow Normal Lt. Yellow [facility] Comment on above: Performed By: #### L [id number] ####Curriculum Designer: KEMAR ABEBE ([id number])[facility] (SBHLAB)[address] Glucose (U) [Mass/Vol] 50 mg/dL Normal Janey l (<70) [facility] Comment on above: Performed By: #### L [id number] ####Curriculum Designer: KEMAR MOMINHiginioSAAD ([id number])[facility]ITALA [facility]N (SBHLAB)[address] HEMOGLOBIN PRESENCE IN URINE 1.0 mg/dL Abnormal Negative [facility] Comment on above: Performed By: #### L [id number] ####Curriculum Designer: KEMAR LUDWIGSAAD ([id number])[facility]ITALA [place] (HLAB)[address] HYALINE CASTS (#/LPF) IN URINE SEDIMENT BY MICROSCOPY 0-2 Abnormal Negative [facility] Comment on above: Performed By: #### L [id number] ####Curriculum Designer: KEMAR ABEBE ([id number])[facility] (HLAB)[address] Ketones Ql (U) Trace Abnormal Negative [facility] Comment on above: Performed By: #### L [id number] ####Curriculum Designer: KEMAR ABEBE ([id number])[facility] (HLAB)[address] LEUKOCYTE ESTERASE PRESENCE IN URINE BY TEST STRIP Negative Normal Negative [facility] Comment on above: Performed By: #### L [id number] ####Curriculum Designer: KEMAR ABEBE ([id number])[facility] (SBHLAB)[address] [place] [address] [place] MUCUS (#/LPF) IN URINE SEDIMENT Few Normal Negative [facility] Comment on above: Performed By: #### L [id number] ####Curriculum Designer: KEMAR LUDWIGSAAD ([id number])[facility] (SBHLAB)[address] NITRITE PRESENCE IN URINE Negative Normal Negative [facility] Comment on above: Performed By: #### L [id number] ####Curriculum Designer: KEMAR ABEBE ([id number])[facility]ITAL[facility] K[facility]PERN (SBHLAB)[address] pH (U) 6.0 [pH] Normal 5.0-8.0 [facility] Comment on above: Performed By: #### L [id number] ####Curriculum Designer: KEMAR ABEBE ([id number])[facility] [place] (SB[facility]AB)[address] Protein (U) [Mass/Vol] 100 mg/dL Abnormal Negative [facility] Comment on above: Performed By: #### L [id number] ####Curriculum Designer: KEMAR ABEBE ([id number])[facility]ITALA [facility] (SBHLAB)[address] RBC (#/HPF) IN URINE SEDIMENT >100 Abnormal 0-2 [facility] Comment on above: Performed By: #### L [id number] ####Curriculum Designer: KEMAR ABEBE ([id number])[facility]ITALA [facility] (SBHLAB)[address] Specific gravity (U) [Rel density] 1.012 Normal 1.005-1.030 [facility] Comment on above: Performed By: #### L [id number] ####Curriculum Designer: KEMAR ABEBE ([id number])[facility]ITALWar[facility] (SB[facility])[address] SQUAMOUS EPITHELIAL CELLS (#/HPF) IN URINE SEDIMENT 3-5 Normal 3-5 [facility] Comment on above: Performed By: #### L [id number] ####Curriculum Designer: KEMAR ABEBE ([id number])[facility] (SBHLAB)[address] UROBILINOGEN (MG/DL) IN URINE Normal Normal Normal (0-1) [facility] Comment on above: Performed By: #### L [id number] ####Curriculum Designer: KEMAR ABEBE ([id number])[facility]N (SBHLAB)[address] WBC (LEUKOCYTE) (#/HPF) IN URINE SEDIMENT 0-2 Normal 0-5 [facility] Comment on above: Performed By: #### L [id number] ####Curriculum Designer: KEMAR ABEBE ([id number])[facility]ITALWar[facility] VIGIL (SBHLAB)[address] COMPREHENSIVE METABOLIC PANE Gigi 11-30-2024 Albumin [Mass/Vol] 3.4 g/dL Low 3.5-5.0 [facility] Comment on above: Performed By: #### L [id number], LAB17, QWI018, LAB99 ####Curriculum Designer: KEMAR ABEBE ([id number])[facility]ITALWarren VIGIL (SBHLAB)[address] ALP [Catalytic activity/Vol] 145 U/L Normal [facility] Comment on above: Performed By: #### L [id number], LAB17, KPQ865, LAB99 ####Curriculum Designer: KEMAR ABEBE ([id number])[facility]ITALWar[facility] (SBHLAB)[address] ALT [Catalytic activity/Vol] 21 U/L Normal [facility] Comment on above: Performed By: #### L [id number], LAB17, GRJ718, LAB99 ####Curriculum Designer: KEMAR ABEBE ([id number])[facility]ITALWarren [facility]MIM[facility]ITALN (SBHLAB)[address] Anion gap [Moles/Vol] 11 mmol/L Normal 3-13 [facility] Comment on above: Performed By: #### L [id number], LAB17, YQN721, LAB99 ####Curriculum Designer: KEMAR ABEBE ([id number])[facility]ITALWar[facility] KASPERN (SBHLAB)[address] AST [Catalytic activity/Vol] 21 U/L Normal <34 [facility] Comment on above: Performed By: #### L [id number], LAB17, FKV832, LAB99 ####Curriculum Designer: KEMAR ABEBE ([id number])[facility]ITALA MAJON (SBHLAB)[address] Bilirubin [Mass/Vol] 0.5 mg/dL Normal <1.2 [facility] Comment on above: Performed By: #### Elijah [id number], LAB17, LUS665, LAB99 ####Curriculum Designer: KEMAR ABEBE ([id number])[facility]ITALA [facility] (SBHLAB)[address] Calcium [Mass/Vol] 8.9 mg/dL Normal 8.4-10.2 [facility] Comment on above: Performed By: #### Elijah [id number], LAB17, DWR435, LAB99 ####Curriculum Designer: KEMAR ABEBE ([id number])[facility]ITALA [facility] (SBHLAB)[address] [place] [address] [place] Chloride [Moles/Vol] 99 mmol/L Normal 98-107 [facility] Comment on above: Performed By: #### Elijah [id number], LAB17, QIR083, LAB99 ####Curriculum Designer: KEMAR ABEBE ([id number])[facility]PITALWarren [facility]IM[facility]ITALN (SBHLAB)[address] CO2 [Moles/Vol] 28 mmol/L Normal 22-29 [facility] Comment on above: Performed By: #### Elijah [id number], LAB17, BJG831, LAB99 ####Curriculum Designer: KEMAR ABEBE ([id number])[facility] [place] (SBHLAB)[address] [place] [address] [place] Creatinine [Mass/Vol] 0.73 mg/dL Normal [facility] Comment on above: Performed By: #### L [id number], LAB17, VSV689, LAB99 ####Curriculum Designer: KEMAR ABEBE ([id number])[facility] (SBHLAB)[address] GLOMERULAR FILTRATION RATE ML/MIN/1.73 SQ M.PREDICTED >90.0 Normal >60.0 [facility] Comment on above: Result Comment: Calc ulation based on the Chronic Kidney Disease Epidemiology Collaboration (CKD-EPI) equation refit without adjustment for race Performed By: #### Elijah [id number], LAB17, LQS217, LAB99 ####Curriculum Designer: KEMAR ABEBE ([id number])[facility] (SBHLAB)[address] Glucose [Mass/Vol] 249 mg/dL High 74-100 [facility] Comment on above: Performed By: #### Elijah [id number], LAB17, UDF791, LAB99 ####Curriculum Designer: KEMAR ABEBE ([id number])[facility] (SBHLAB)[address] Potassium [Moles/Vol] 3.4 mmol/L Low 3.5-5.1 [facility] Comment on above: Result Comment: [facility] potassium values may be up to 0.5 mmol/L lower than serum values. Performed By: #### Elijah [id number], LAB17, PLI165, LAB99 ####Curriculum Designer: KEMAR ABEBE ([id number])[facility] (SBHLAB)[address] Protein [Mass/Vol] 6.7 g/dL Normal 6.4-8.3 [facility] Comment on above: Performed By: #### Elijah [id number], LAB17, LZQ361, LAB99 ####Curriculum Designer: KEMAR ABEBE ([id number])[facility]N (SBHLAB)[address] [place] [address] [place] Sodium [Moles/Vol] 138 mmol/L Normal 136-145 [facility] Comment on above: Performed By: #### Elijah [id number], LAB17, UXF580, LAB99 ####Curriculum Designer: KEMAR ABEBE ([id number])[facility] (SBHLAB)[address] [place] [address] [place] Urea nitrogen [Mass/Vol] 10 mg/dL Normal 9-23 [facility] Comment on above: Performed By: #### L [id number], LAB17, ULB389, LAB99 ####Curriculum Designer: KEMAR ABEBE ([id number])[facility] (SBHLAB)[address] Carbon dioxide measurementOr dered By: Jared Guzman on 11-30-2024 CO2 [Moles/Vol] 18.0 mmol/L Low 21.0-32.0 [facility] Chloride measurementOrdered By: Jared Guzman on 11-30-2024 Chloride [Moles/Vol] 104 mmol/L 98-107 [facility] Comprehensive Metabolic Prof ilon 11-30-2024 Albumin [Mass/Vol] 2.0 g/dL Low 3.2-5.0 [facility] Comment on above: Order Comment: 103-1 Performed By: #### L 100.0500, L500.4100, L500.4050 #### [facility] [address] [place], [address] Albumin/Globulin [Mass ratio] 0.4 {ratio} Low 0.9-2.4 [facility] Comment on above: Order Comment: 103-1 Performed By: #### L 100.0500, L500.4100, L500.4050 #### [facility] [address] [place], [address] ALK P 137 U/L High 45-117 [facility] Comment on above: Order Comment: 103-1 Performed By: #### L 100.0500, L500.4100, L500.4050 #### [facility] [address] [place], [address] ALT [Catalytic activity/Vol] 26 U/L Normal 13-56 [facility] Comment on above: Order Comment: 103-1 Performed By: #### L 100.0500, L500.4100, L500.4050 #### [facility] [address] [place], [address] AST [Catalytic activity/Vol] 15 U/L Normal 15-37 [facility] Comment on above: Order Comment: 103-1 Performed By: #### L 100.0500, L500.4100, L500.4050 #### [facility] [address] [place], [address] Bilirubin [Mass/Vol] 0.40 mg/dL Normal 0.20-1.00 [facility] Comment on above: Order Comment: 103-1 Result Comment: For patients on eltrombopag therapy, use of Dimension Spray TBIL is not recommended. Performed By: #### L 100.0500, L500.4100, L500.4050 #### [facility] [address] [place], [address] BUN/CRE 10.5 RATIO Normal 10-20 [facility] Comment on above: Order Comment: 103-1 Performed By: #### L 100.0500, L500.4100, L500.4050 #### [facility] [address] [place], [address] CA,Total 5.9 mg/dL Invalid Interpretation Code 8.5-10.1 [facility] Comment on above: Order Comment: 103-1 Performed By: #### L 100.0500, L500.4100, L500.4050 #### [facility] [address] [place], [address] Chloride [Moles/Vol] 104 mmol/L Normal 98-107 [facility] Comment on above: Order Comment: 103-1 Performed By: #### L 100.0500, L500.4100, L500.4050 #### [facility] [address] [place], [address] CO2 [Moles/Vol] 18.0 mmol/L Low 21.0-32.0 [facility] Comment on above: Order Comment: 103-1 Performed By: #### L 100.0500, L500.4100, L500.4050 #### [facility] [address] [place], [address] Creatinine [Mass/Vol] 0.57 mg/dL Normal 0.55-1.02 [facility] Comment on above: Order Comment: 103-1 Result Comment: The validity of the calculated GFR GFRAA in patients over 70 years has not been determined. Clinical correlation is essential. Performed By: #### L 100.0500, L500.4100, L500.4050 #### [facility] [address] [place], [address] EST GFR - AA 140 mL/min Normal >60 [facility] Comment on above: Order Comment: 103-1 Result Comment: Afri can Greenlandic GFR Calc Performed By: #### L 100.0500, L500.4100, L500.4050 #### [facility] [address] [place], [address] GAP 16 High 5-15 [facility] Comment on above: Order Comment: 103-1 Performed By: #### L 100.0500, L500.4100, L500.4050 #### [facility] [address] [place], [address] GFR/1.73 sq M.predicted among non-blacks MDRD (S/P/Bld) [Vol rate/Area] 116 mL/min/{1.73_m2} Normal >60 [facility] Comment on above: Order Comment: 103-1 Result Comment: Non- GFR Calc Performed By: #### L 100.0500, L500.4100, L500.4050 #### [facility] [address] [place], [address] Globulin (S) [Mass/Vol] 4.6 g/dL High 2.2-4.2 [facility] Comment on above: Order Comment: 103-1 Performed By: #### L 100.0500, L500.4100, L500.4050 #### [facility] [address] [place], [address] Glucose [Mass/Vol] 72 mg/dL Low 74-106 [facility] Comment on above: Order Comment: 103-1 Performed By: #### L 100.0500, L500.4100, L500.4050 #### [facility] [address] [place], [address] Potassium [Moles/Vol] 3.3 mmol/L Low 3.5-5.1 [facility] Comment on above: Order Comment: 103-1 Performed By: #### L 100.0500, L500.4100, L500.4050 #### [facility] [address] [place], [address] Sodium [Moles/Vol] 138 mmol/L Normal 136-145 [facility] Comment on above: Order Comment: 103-1 Performed By: #### L 100.0500, L500.4100, L500.4050 #### [facility] [address] [place], [address] T PROT 6.6 g/dL Normal 6.4-8.2 [facility] Comment on above: Order Comment: 103-1 Performed By: #### L 100.0500, L500.4100, L500.4050 #### [facility] [address] [place], [address] Urea nitrogen [Mass/Vol] 6 mg/dL Low 7-18 [facility] Comment on above: Order Comment: 103-1 Performed By: #### L 100.0500, L500.4100, L500.4050 #### [facility] [address] [place], [address] ED Nursing Noteon 11-30-2024 ED Nursing Note Patient has had some chest discomfort since this morning. Recently had a PICC line placed in upper right arm for fluids. Normal [facility] ED Provider Noteon ED Provider Note Normal [facility] Erythrocyte distribution wid th ratioOrdered By: Jared Guzman on 11-30-2024 Erythrocyte distribution width (RBC) [Ratio] 15.1 % High 11.6-14.6 [facility] Erythrocyte distribution wid th standard deviationOrdered By: Jared Guzman on 11-30-2024 Erythrocyte distribution width (RBC) [Entitic vol] 46.6 fL High 35.1-43.9 [facility] Estimated glomerular filtrat ion rate (GFR) AmericanOrdered By: Jared Guzman on 11-30-2024 Estimated GFR (MDRD) Amer 140 mL/min >60 [facility] Comment on above: GFR Calc Glomerular filtration rate ( GFR) estimationOrdered By: Jared Guzman on 11-30-2024 Estimated GFR (MDRD) Non-Af Amer 116 mL/min >60 [facility] Comment on above: Non- GFR Calc Glucose measurementOrdered B y: Jared Guzman on 11-30-2024 Glucose [Mass/Vol] 72 mg/dL Low 74-106 [facility] HIGH SENSITIVITY TROPONIN, S ERIAL BASELINEon 11-30-2024 TROPONIN HIGH SENSITIVITY BASELINE <3 Normal [facility] Comment on above: Performed By: #### L [id number] ####Curriculum Designer: KEMAR ABEBE ([id number])[facility] ([facility])[address] [place] [address] TROPONIN HIGH SENSITIVITY BASELINE <3 Normal [facility] Comment on above: Performed By: #### L [id number], LAB17, [id number], LAB99 ####Curriculum Designer: KEMAR ABEBE ([id number])[facility])[address] HIGH SENSITIVITY TROPONIN, S ERIAL, SECOND TESTon 11-30-2024 TROPONIN HS, SERIAL REFLEX, TEST TWO <3 Normal [facility] Comment on above: Performed By: #### L [id number] ####Curriculum Designer: KEMAR ABEBE ([id number])[facility]ITAL[facility]PITALJerm[facility] (SBHLAB)[address] Hematocrit Auto (Bld) [Volum e fraction]Ordered By: Jared Guzman on 11-30-2024 Hematocrit (Bld) [Volume fraction] 34.7 % Low 37-47 [facility] Hemoglobin measurementOrdere d By: Jared Guzman on 11-30-2024 Hemoglobin (Bld) [Mass/Vol] 10.8 g/dL Low 12.0-15.0 [facility] LIPASEon 11-30-2024 Lipase [Catalytic activity/Vol] 7 U/L Normal <55 [facility] Comment on above: Performed By: #### L [id number], LAB17, [id number], LAB99 ####Curriculum Designer: KEMAR ABEBE ([id number])[facility] ([facility])[address] [place] [address] Laboratory - Chemistry and C hemistry - challengeOrdered By: Jared Guzman on 11-30-2024 AST [Catalytic activity/Vol] 15 U/L 15-37 [facility] MAGNESIUMon 11-30-2024 Magnesium [Mass/Vol] 1.5 mg/dL Low 1.6-2.6 [facility] Comment on above: Result Comment: MARIE Askew COMMENTS:Higher values can be expected in females during menses. Performed By: #### L [id number], LAB17, [id number], LAB99 ####Curriculum Designer: KEMAR ABEBE ([id number])[facility] ([facility])[address] [place] [address] MCV (mean corpuscular volume ) determinationOrdered By: Jared Guzman on 11-30-2024 MCV (RBC) [Entitic vol] 85.5 fL 81-99 [facility] Mean corpuscular hemoglobin (MCH) determinationOrdered By: Jared Guzman on 11-30-2024 MCH (RBC) [Entitic mass] 26.6 pg Low 27.0-32.0 [facility] Mean corpuscular hemoglobin concentration (MCHC) determinationOrdered By: Jared Guzman on 11-30-2024 MCHC (RBC) [Mass/Vol] 31.1 g/dL Low 32-36 [facility] Mean platelet volume determi nationOrdered By: Jared Guzman on 11-30-2024 Platelet mean volume (Bld) [Entitic vol] 10.0 fL 6.2-12.0 [facility] Platelet countOrdered By: Marcel Piper on 11-30-2024 Platelets (Bld) [#/Vol] 375 10*3/uL 150-450 [facility] Potassium measurementOrdered By: Jared Guzman on 11-30-2024 Potassium [Moles/Vol] 3.3 mmol/L Low 3.5-5.1 [facility] RBC Auto (Bld) [#/Vol]Ordere d By: Jared Guzman on 11-30-2024 RBC (Bld) [#/Vol] 4.06 10*6/uL Low 4.2-5.4 [facility] Serum anion gap measurementO rdered By: Jared Guzman on 11-30-2024 Anion gap [Moles/Vol] 16 mmol/L High 5-15 [facility] Serum globulin measurementOr dered By: Jared Guzman on 11-30-2024 Globulin (S) [Mass/Vol] 4.6 g/dL High 2.2-4.2 [facility] Serum or plasma alanine jones otransferase (ALT) measurementOrdered By: Jared Guzman on 11-30-2024 ALT [Catalytic activity/Vol] 26 U/L 13-56 [facility] Serum or plasma albumin mauricio urement (mass/volume)Ordered By: Jared Guzman on 11-30-2024 Albumin [Mass/Vol] 2.0 g/dL Low 3.2-5.0 [facility] Serum or plasma alkaline abbey sphatase measurementOrdered By: Jared Guzman on 11-30-2024 ALP [Catalytic activity/Vol] 137 U/L High 45-117 [facility] Serum or plasma calcium mauricio urement (mass/volume)Ordered By: Jared Guzman on 11-30-2024 Calcium [Mass/Vol] 5.9 mg/dL Low 8.5-10.1 [facility] Serum or plasma creatinine m easurement (mass/volume)Ordered By: Jared Guzman on 11-30-2024 Creatinine [Mass/Vol] 0.57 mg/dL 0.55-1.02 [facility] Comment on above: The validity of the calculated GFR & GFRAA in patients over 70 years has not been determined. Clinical correlation is essential. Serum or plasma urea nitroge n measurement (mass/volume)Ordered By: Jared Guzman on 11-30-2024 Urea nitrogen [Mass/Vol] 6 mg/dL Low 7-18 [facility] Sodium levelOrdered By: Main Guzman on 11-30-2024 Sodium [Moles/Vol] 138 mmol/L 136-145 [facility] Total proteinOrdered By: Mike Guzman on 11-30-2024 Protein [Mass/Vol] 6.6 g/dL 6.4-8.2 [facility] US ABDOMEN LIMITEDon 025 US ABDOMEN LIMITED Normal [facility] White blood cell (WBC) count Ordered By: Jared Guzman on 11-30-2024 WBC (Bld) [#/Vol] 8.4 10*3/uL 4.4-11.0 [facility] 36on 11-28-2024 36 I have reviewed the pt's glucose log. Based on interpretation of the FSBS data I recommend the following changes to the pt's antihyperglycemic regimen: Please increase Humulin u500 to 140 units three times daily before meals. Med rec updated: Yes [facility] 36 Patients BGL [facility] 36on 11-22-2024 36 Normal [facility] 36 Unable to reach Nayan h at [facility] to reschedule appt with Makayla Guerrero on 11/27/2024. Called SNF again at [phone] and spoke to Quiana again. Rescheduled pt to 01/01/25 and per Nayan Arayah will call if there is a problem with this date/time. [facility] 36on 11-21-2024 36 Normal [facility] 36 Patient's BGL [facility] 36on 11-20-2024 36 Addendum completed. Sending message to provider as FYI, please indicate if/when patient needs fu with provider to review. Will forward to staff to schedule if indicated. Thank you. Normal [facility] 36on 11-19-2024 36 Normal [facility] CT CHEST ANGIOGRAM W AND/OR WO IV CONTRASTon 11-18-2024 CT CHEST ANGIOGRAM W AND/OR WO IV CONTRAST Normal [facility] 36on 11-15-2024 36 Patient's BGL Normal [facility] 36on 11-14-2024 36 Noted. Request email ed to radiology team. Normal [facility] Progress Noteon 11-14-2024 Progress Note Normal [facility] 36on 11-13-2024 36 Normal [facility] BASIC METABOLIC PANELon Anion gap [Moles/Vol] 10 mmol/L Normal 3-13 [facility] Comment on above: Performed By: #### L AB15, LAB99, LAB20 ####Curriculum Designer: KEMAR ABEBE ([id number])[facility] (SBHLAB)[address] Calcium [Mass/Vol] 8.7 mg/dL Normal 8.4-10.2 [facility] Comment on above: Performed By: #### L AB15, LAB99, LAB20 ####Curriculum Designer: KEMAR ABEBE ([id number])[facility] (SBHLAB)[address] [place] [address] [place] Chloride [Moles/Vol] 105 mmol/L Normal 98-107 [facility] Comment on above: Performed By: #### L AB15, LAB99, LAB20 ####Curriculum Designer: KEMAR ABEBE ([id number])[facility] (SBHLAB)[address] [place] [address] [place] CO2 [Moles/Vol] 26 mmol/L Normal 22-29 [facility] Comment on above: Performed By: #### L AB15, LAB99, LAB20 ####Curriculum Designer: KEMAR ABEBE ([id number])[facility] (SB[facility]AB)[address] [place] [address] [place] Creatinine [Mass/Vol] 1.01 mg/dL Normal [facility] Comment on above: Performed By: #### L AB15, LAB99, LAB20 ####Curriculum Designer: KEMAR ABEBE ([id number])[facility] ([facility])[address] [place] [address] GLOMERULAR FILTRATION RATE ML/MIN/1.73 SQ M.PREDICTED 64.7 mL/min/1.73m*2 Normal >60.0 [facility] Comment on above: Result Comment: Calc ulation based on the Chronic Kidney Disease Epidemiology Collaboration (CKD-EPI) equation refit without adjustment for race Performed By: #### Elijah AB15, LAB99, LAB20 ####Curriculum Designer: KEMAR ABEBE ([id number])[facility] ([facility])[address] [place] [address] Glucose [Mass/Vol] 87 mg/dL Normal 74-100 [facility] Comment on above: Performed By: #### Elijah OJEDA15, LAB99, LAB20 ####Curriculum Designer: KEMAR ABEBE ([id number])[facility] ([facility])[address] [place] [address] Potassium [Moles/Vol] 3.9 mmol/L Normal 3.5-5.1 [facility] Comment on above: Result Comment: [facility] potassium values may be up to 0.5 mmol/L lower than serum values. Performed By: #### Elijah OJEDA15, LAB99, LAB20 ####Curriculum Designer: KEMAR ABEBE ([id number])[facility] ([facility])[address] [place] [address] [place] Sodium [Moles/Vol] 141 mmol/L Normal 136-145 [facility] Comment on above: Performed By: #### L AB15, LAB99, LAB20 ####Curriculum Designer: KEMAR ABEBE ([id number])[facility] ([facility])[address] [place] [address] Urea nitrogen [Mass/Vol] 18 mg/dL Normal 9-23 [facility] Comment on above: Performed By: #### L AB15, LAB99, LAB20 ####Curriculum Designer: KEMAR ABEBE ([id number])[facility] ([facility])[address] Basic metabolic 1998 panelon 11-12-2024 Anion gap [Moles/Vol] 10 mmol/L 3 - 13 mmol/L [facility] Calcium [Mass/Vol] 8.7 mg/dL 8.4 - 10. 2 mg/dL [facility] Chloride [Moles/Vol] 105 mmol/L 98 - 10 7 mmol/L [facility] CO2 [Moles/Vol] 26 mmol/L 22 - 29 mmol/L [facility] Creatinine [Mass/Vol] 1.01 mg/dL [facility] GFR/1.73 sq M.predicted (S/P/Bld) [Vol rate/Area] 64.7 mL/min - PINF [facility] Comment on above: Calculation based on the Chronic Kidney Disease Epidemiology Collaboration (CKD-EPI) equation refit without adjustment for race Glucose [Mass/Vol] 87 mg/dL 74 - 100 mg/dL [facility] Potassium [Moles/Vol] 3.9 mmol/L 3.5 - 5.1 mmol/L [facility] Comment on above: Plasma potassium helen ues may be up to 0.5 mmol/L lower than serum values. Sodium [Moles/Vol] 141 mmol/L 136 - 145 mmol/L [facility] Urea nitrogen [Mass/Vol] 18 mg/dL 9 - 23 mg/dL [facility] CBC (HEMOGRAM)on 11-12-2024 Erythrocyte distribution width (RBC) [Ratio] 14.8 % Normal 11.5-15.0 [facility] Comment on above: Performed By: #### L AB294 ####Curriculum Designer: KEMAR ABEBE ([id number])[facility] (SB[facility]AB)[address] Hematocrit (Bld) [Volume fraction] 37.7 % Normal Male: 40.0-52.0 ; Female: 35.0-47.0 [facility] Comment on above: Performed By: #### L AB294 ####Curriculum Designer: KEMAR ABEBE ([id number])[facility] (SBHLAB)[address] Hemoglobin (Bld) [Mass/Vol] 12.0 g/dL Normal 11.7-18.0 [facility] Comment on above: Performed By: #### L AB294 ####Curriculum Designer: KEMAR ABEBE ([id number])[facility] ([facility]AB)[address] MCH (RBC) [Entitic mass] 27.2 pg Normal 26.0-34.0 [facility] Comment on above: Performed By: #### L AB294 ####Curriculum Designer: KEMAR ABEBE ([id number])[facility] (SB[facility]AB)[address] [place] [address] MCHC 31.8 % Normal 30.5-36.0 [facility] Comment on above: Performed By: #### L AB294 ####Curriculum Designer: KEMAR ABEBE ([id number])[facility] ([facility]AB)[address] [place] [address] MCV (RBC) [Entitic vol] 85.5 fL Normal 77.0-99.0 [facility] Comment on above: Performed By: #### L AB294 ####Curriculum Designer: KEMAR ABEBE ([id number])[facility] (SBHLAB)[address] [place] [address] Platelet mean volume (Bld) [Entitic vol] 9.2 fL Normal 9.0-12.7 [facility] Comment on above: Performed By: #### L AB294 ####Curriculum Designer: KEMAR ABEBE ([id number])[facility] ([facility]AB)[address] Platelets (Bld) [#/Vol] 391 10*3/uL Normal 140-440 [facility] Comment on above: Performed By: #### L AB294 ####Curriculum Designer: KEMAR ABEBE ([id number])[facility] ([facility])[address] RBC (Bld) [#/Vol] 4.41 10*6/uL Normal Male: 4.40-5.90; Female: 3.80-5.20 [facility] Comment on above: Performed By: #### L AB294 ####Curriculum Designer: KEMAR ABEBE ([id number])[facility] ([facility])[address] WBC (Bld) [#/Vol] 8.6 10*3/uL Normal 3.6-10.7 [facility] Comment on above: Performed By: #### L AB294 ####Curriculum Designer: KEMAR ABEBE ([id number])[facility] ([facility])[address] [place] [address] CBC panel Auto (Bld)on 11-12 Erythrocyte distribution width (RBC) [Ratio] 14.8 % 11.5 - 15.0 % [facility] [employer] Hematocrit (Bld) [Volume fraction] 37.7 % Male: 40.0-52.0 ; Female: 35.0-47.0 [facility] Hemoglobin (Bld) [Mass/Vol] 12 g/dL 11.7 - 18.0 g/dL [facility] MCH (RBC) [Entitic mass] 27.2 pg 26.0 - 34.0 pg [facility] MCHC (RBC) [Mass/Vol] 31.8 % 30.5 - 36.0 % [facility] MCV (RBC) [Entitic vol] 85.5 fL 77.0 - 99.0 fL [facility] [employer] Platelet mean volume (Bld) [Entitic vol] 9.2 fL 9.0 - 12.7 fL [facility] [employer] Platelets (Bld) [#/Vol] 391 10*3/uL 140 - 440 10*3/uL [facility] RBC (Bld) [#/Vol] 4.41 10*6/uL Male: 4.40-5.90; Female: 3.80-5.20 [facility] WBC (Bld) [#/Vol] 8.6 10*3/uL 3.6 - 10.7 10*3/uL [facility] CT ABDOMEN PELVIS WO IV CONT RASTon 11-12-2024 CT ABDOMEN PELVIS WO IV CONTRAST Normal [facility] CT Abdomen and Pelvis WO con traston 11-12-2024 1. Decompressed gallbladder, with apparent cholelithiasis. 2. 9 mm nodular density right middle lobe not appreciably changed. 3. No other acute findings. Report Dictated on Electronically Signed By: Joel Haddad MD Electronically Signed Date/Time: 11/12/2024 11:13 PM [facility] [employer] Patient Name: WILL ALVARADO : 1965 [...] body habitus versus diastases-type ventral hernia, unchanged. [facility] Joel Haddad MD - 11/12/2024 Patient Name: WILL JACINTO : 1965 [facility]#: [id number] Exam Date/Time: 11/12/2024 22:41 Procedure: CT ABDOMEN [...] Electronically Signed Date/Time: 11/12/2024 11:13 PM EST [facility] [employer] Radiology Study observation (narrative) [facility] Abdomen and Pelvis WO con trastOrdered By: Joel Haddad on 11-12-2024 [employer] Work Phone: ED Provider Noteon ED Provider Note Normal [facility] HEPATIC FUNCTION PANELon Albumin [Mass/Vol] 3.3 g/dL Low 3.5-5.0 [facility] Comment on above: Performed By: #### L AB15, LAB99, LAB20 ####Curriculum Designer: KEMAR ABEBE ([id number])[facility] (SBHLAB)[address] ALP [Catalytic activity/Vol] 143 U/L Normal [facility] Comment on above: Performed By: #### L AB15, LAB99, LAB20 ####Curriculum Designer: KMEAR ABEBE ([id number])[facility] ([facility])[address] ALT [Catalytic activity/Vol] 65 U/L Normal [facility] Comment on above: Performed By: #### L AB15, LAB99, LAB20 ####Curriculum Designer: KEMAR ABEBE ([id number])[facility]ITAL[facility] (SBHLAB)[address] AST [Catalytic activity/Vol] 42 U/L High <34 [facility] Comment on above: Performed By: #### L AB15, LAB99, LAB20 ####Curriculum Designer: KEMAR ABEBE ([id number])[facility] ([facility])[address] Bilirubin [Mass/Vol] 0.4 mg/dL Normal <1.2 [facility] Comment on above: Performed By: #### L AB15, LAB99, LAB20 ####Curriculum Designer: KEMAR ABEBE ([id number])[facility] ([facility])[address] Bilirubin.indirect [Mass/Vol] 0.2 mg/dL Normal <0.5 [facility] Comment on above: Performed By: #### L AB15, LAB99, LAB20 ####Curriculum Designer: KEMAR ABEBE ([id number])[facility] (HLAB)[address] Protein [Mass/Vol] 6.8 g/dL Normal 6.4-8.3 [facility] Comment on above: Result Comment: Seru m protein values are higher than plasma values. Samples from recumbent persons are lower by up to 0.5 g/dL as compared to ambulatory persons. After 60 years values are lower by up to 0.2 g/dL. Performed By: #### L AB15, LAB99, LAB20 ####Curriculum Designer: KEMAR ABEBE ([id number])[facility] ([facility])[address] Hepatic function 2000 panelo n 11-12-2024 Albumin [Mass/Vol] 3.3 g/dL Low 3.5 - 5.0 g/dL [facility] ALP [Catalytic activity/Vol] 143 U/L [facility] [employer] ALT [Catalytic activity/Vol] 65 U/L [facility] AST [Catalytic activity/Vol] 42 U/L High NINF - 34 U/L [facility] [employer] Bilirubin [Mass/Vol] 0.4 mg/dL [facility] mg/dL [facility] Bilirubin.conjugated [Mass/Vol] 0.2 mg/dL NINF - 0.5 mg/dL [facility] Interpretation and review of laboratory results Abnormal [facility] Protein [Mass/Vol] 6.8 g/dL 6.4 - 8.3 g/dL [facility] Comment on above: Serum protein values are higher than plasma values. Samples from recumbent persons are lower by up to 0.5 g/dL as compared to ambulatory persons. After 60 years values are lower by up to 0.2 g/dL. LIPASEon 11-12-2024 Lipase [Catalytic activity/Vol] 26 U/L Normal <55 [facility] Comment on above: Performed By: #### L AB15, LAB99, LAB20 ####Curriculum Designer: KEMAR ABEBE ([id number])[facility] ([facility]AB)[address] Laboratory - Chemistry and C hemistry - challengeon 11-12-2024 Lipase [Catalytic activity/Vol] 26 U/L NINF - 55 U/L [facility] Lipase [Catalytic activity/V ol]on 11-12-2024 Interpretation and review of laboratory results Normal [facility] No Panel Informationon 11-12 [facility] Urine Cultureon 11-11-2024 [facility] UNKNOWN METHOD OF COLLECTION Mixed Gram Pos Gram Neg Org [place] Count 11,000-25,000 MIXC Mixed contaminants. Submit a new specimen if indicated. Normal [facility] Comment on above: Performed By: #### M 100.2200, L400.2010 #### [facility] [address] [place], [address] Bilirubin Test strip Ql (U)O rdered By: Jared Guzman on 11-10-2024 Bilirubin Ql (U) Negative Negative [facility] Epithelial cells.squamous LM Ql (Urine sed)Ordered By: Jared Guzman on 11-10-2024 Epithelial cells.squamous LM.HPF (Urine sed) [#/Area] 0 /[HPF] 5-10 [facility] Glucose Ql (U)Ordered By: Marcel Piper on 11-10-2024 Urine Glucose (UA) Normal mg/dl Normal [facility] Ketones Test strip Ql (U)Ord ered By: Jared Guzman on 11-10-2024 Ketones Ql (U) Negative Negative [facility] Microscopic analysis of urin e for red blood cells (RBC)Ordered By: Jared Guzman on 11-10-2024 Urine RBC 10-25 SEEN /hpf 0-5 [facility] Mucus LM Ql (Urine sed)Order ed By: Jared Guzman on 11-10-2024 Mucus Ql (Urine sed) 0 SEEN /hpf [facility] Nitrite Test strip Ql (U)Ord ered By: Jared Guzman on 11-10-2024 Nitrite Ql (U) Negative Negative [facility] Progress Noteon 11-10-2024 Progress Note Normal [facility] Protein Test strip Ql (U)Ord ered By: Jared Guzman on 11-10-2024 Protein Ql (U) 500 mg/dl High Negative [facility] Urinalysis, Completeon 11-10 EPI,SQUAMOUS 0-5 SEEN Normal 5-10 [facility] Comment on above: Order Comment: UNKNO WN METHOD OF COLLECTION CLEAN CATCH Performed By: #### L 400.0001, M100.2200 #### [facility] [address] [place], [address] RBC 10-25 SEEN Normal 0-5 [facility] Comment on above: Order Comment: UNKNO WN METHOD OF COLLECTION CLEAN CATCH Performed By: #### L 400.0001, M100.2200 #### [facility] [address] [place], [address] BACTERIA 3+ /hpf Normal None Seen [facility] Comment on above: Order Comment: UNKNO WN METHOD OF COLLECTION CLEAN CATCH Performed By: #### L 400.0001, M100.2200 #### [facility] [address] [place], [address] WBC 10-25 SEEN Normal 0-5 [facility] Comment on above: Order Comment: UNKNO WN METHOD OF COLLECTION CLEAN CATCH Performed By: #### L 400.0001, M100.2200 #### [facility] [address] [place], [address] Mucus Ql (Urine sed) 0 SEEN Normal [facility] Comment on above: Order Comment: UNKNO WN METHOD OF COLLECTION CLEAN CATCH Performed By: #### L 400.0001, M100.2200 #### [facility] [address] [place], [address] Urine blood detectionOrdered By: Jared Guzman on 11-10-2024 Urine Occult Blood 250 /ul High Negative [facility] Urine clarityOrdered By: Mike Guzman on 11-10-2024 Clarity (U) Cloudy Clear [facility] Urine color determinationOrd ered By: Jared Guzman on 11-10-2024 Color (U) Yellow Yellow [facility] Urine cultureOrdered By: Mike Guzman on 11-10-2024 Bacteria identified Cx Nom (U) Mixed Gram Pos & Gram Neg Org Abnormal [facility] Bacteria identified Cx Nom (U) Mixed Gram Pos & Gram Neg Org Abnormal [facility] Urine leukocyte esterase det ection by dipstickOrdered By: Jared Guzman on 11-10-2024 Leukocyte esterase Test strip Ql (U) 100 /ul High Negative [facility] Urine pHOrdered By: Jared moreno on 11-10-2024 pH (U) 6.0 [pH] 5.0 - 8.0 [facility] Urine sediment bacteria coun t by microscopy (number/high power field)Ordered By: Jared Guzman on 11-10-2024 Bacteria LM.HPF (Urine sed) [#/Area] 3 /[HPF] None Seen [facility] Urine specific gravity measu rementOrdered By: Jared Guzman on 11-10-2024 Specific gravity (U) [Rel density] 1.025 1.002-1.030 [facility] Urobilinogen Ql (U)Ordered B y: Jared Guzman on 11-10-2024 Urine Urobilinogen Normal mg/dl Normal [facility] White blood cell countOrdere d By: Jared Guzman on 11-10-2024 Urine WBC 10-25 SEEN /hpf 0-5 [facility] 36on 11-07-2024 36 Released msg to pt's nurse Ninfa. She verbalized understanding Normal [facility] 36 [facility] [facility] 36 Patient's BGL Normal [facility] 36on 10-30-2024 36 Released message to nurse [facility] 36 BG log reviewed. No changes to current meds. Send log as needed; otherwise, has appt 11/27 with Ana Maria. Please remind SNF to send BGL and MAR to visit. Thank you! Normal [facility] 36 Patient's BGL Normal [facility] Albumin to globulin ratioOrd ered By: Jared Guzman on 10-30-2024 Albumin/Globulin [Mass ratio] 0.8 {ratio} Low 0.9-2.4 [facility] Bilirubin, totalOrdered By: Jared Guzman on 10-30-2024 Bilirubin [Mass/Vol] 0.40 mg/dL 0.20-1.00 [facility] Comment on above: For patients on eltr ombopag therapy, use of Dimension Spray TBIL is not recommended. Blood urea nitrogen (BUN)/cr eatinine ratioOrdered By: Jared Guzman on 10-30-2024 Urea nitrogen/Creatinine [Mass ratio] 20.3 mg/mg High 10- [facility] CBC-Complete Blood Cnt No Di ffon 10-30-2024 Erythrocyte distribution width (RBC) [Ratio] 14.8 % High 11.6-14.6 [facility] Comment on above: Order Comment: 103-1 Performed By: #### L 100.0500, L500.4050 #### [facility] [address] [place], [address] Hematocrit (Bld) [Volume fraction] 32.9 % Low 37-47 [facility] Comment on above: Order Comment: 103-1 Performed By: #### L 100.0500, L500.4050 #### [facility] [address] [place], [address] Hemoglobin (Bld) [Mass/Vol] 10.2 g/dL Low 12.0-15.0 [facility] Comment on above: Order Comment: 103-1 Performed By: #### L 100.0500, L500.4050 #### [facility] [address] [place], [address] MCH (RBC) [Entitic mass] 27.1 pg Normal 27.0-32.0 [facility] Comment on above: Order Comment: 103-1 Performed By: #### L 100.0500, L500.4050 #### [facility] [address] [place], [address] MCHC (RBC) [Mass/Vol] 31.0 g/dL Low 32-36 [facility] Comment on above: Order Comment: 103-1 Performed By: #### L 100.0500, L500.4050 #### [facility] [address] [place], [address] MCV (RBC) [Entitic vol] 87.3 fL Normal 81-99 [facility] Comment on above: Order Comment: 103-1 Performed By: #### L 100.0500, L500.4050 #### [facility] [address] [place], [address] Platelet mean volume (Bld) [Entitic vol] 9.7 fL Normal 6.2-12.0 [facility] Comment on above: Order Comment: 103-1 Performed By: #### L 100.0500, L500.4050 #### [facility] [address] [place], [address] Platelets (Bld) [#/Vol] 387 10*3/uL Normal 150-450 [facility] Comment on above: Order Comment: 103-1 Performed By: #### L 100.0500, L500.4050 #### [facility] [address] [place], [address] RBC (Bld) [#/Vol] 3.77 10*6/uL Low 4.2-5.4 [facility] Comment on above: Order Comment: 103-1 Performed By: #### L 100.0500, L500.4050 #### [facility] [address] [place], [address] RDW SD 46.8 fl High 35.1-43.9 [facility] Comment on above: Order Comment: 103-1 Performed By: #### L 100.0500, L500.4050 #### [facility] [address] [place], [address] WBC (Bld) [#/Vol] 9.0 10*3/uL Normal 4.4-11.0 [facility] Comment on above: Order Comment: 103-1 Performed By: #### L 100.0500, L500.4050 #### [facility] [address] [place], [address] Carbon dioxide measurementOr dered By: Jared Guzman on 10-30-2024 CO2 [Moles/Vol] 26.0 mmol/L 21.0-32.0 [facility] Chloride measurementOrdered By: Jared Guzman on 10-30-2024 Chloride [Moles/Vol] 108 mmol/L High 98-107 [facility] Comprehensive Metabolic Prof ilon 10-30-2024 Albumin [Mass/Vol] 2.8 g/dL Low 3.2-5.0 [facility] Comment on above: Order Comment: 103-1 Performed By: #### L 100.0500, L500.4050 #### [facility] [address] [place], [address] Albumin/Globulin [Mass ratio] 0.8 {ratio} Low 0.9-2.4 [facility] Comment on above: Order Comment: 103-1 Performed By: #### L 100.0500, L500.4050 #### [facility] [address] [place], [address] ALK P 113 U/L Normal 45-117 [facility] Comment on above: Order Comment: 103-1 Performed By: #### L 100.0500, L500.4050 #### [facility] [address] [place], [address] ALT [Catalytic activity/Vol] 25 U/L Normal 13-56 [facility] Comment on above: Order Comment: 103-1 Performed By: #### L 100.0500, L500.4050 #### [facility] [address] [place], [address] AST [Catalytic activity/Vol] 18 U/L Normal 15-37 [facility] Comment on above: Order Comment: 103-1 Performed By: #### L 100.0500, L500.4050 #### [facility] [address] [place], [address] Bilirubin [Mass/Vol] 0.40 mg/dL Normal 0.20-1.00 [facility] Comment on above: Order Comment: 103-1 Result Comment: For patients on eltrombopag therapy, use of Dimension Spray TBIL is not recommended. Performed By: #### L 100.0500, L500.4050 #### [facility] [address] [place], [address] BUN/CRE 20.3 RATIO High 10-20 [facility] Comment on above: Order Comment: 103-1 Performed By: #### L 100.0500, L500.4050 #### [facility] [address] [place], [address] CA,Total 8.8 mg/dL Normal 8.5-10.1 [facility] Comment on above: Order Comment: 103-1 Performed By: #### L 100.0500, L500.4050 #### [facility] [address] [place], [address] Chloride [Moles/Vol] 108 mmol/L High 98-107 [facility] Comment on above: Order Comment: 103- Performed By: #### L 100.0500, L500.4050 #### [facility] [address] [place], [address] CO2 [Moles/Vol] 26.0 mmol/L Normal 21.0-32.0 [facility] Comment on above: Order Comment: 103- Performed By: #### L 100.0500, L500.4050 #### [facility] [address] [place], [address] Creatinine [Mass/Vol] 0.69 mg/dL Normal 0.55-1.02 [facility] Comment on above: Order Comment: 103-1 Result Comment: The validity of the calculated GFR GFRAA in patients over 70 years has not been determined. Clinical correlation is essential. Performed By: #### L 100.0500, L500.4050 #### [facility] [address] [place], [address] EST GFR - AA 112 mL/min Normal >60 [facility] Comment on above: Order Comment: 103-1 Result Comment: Afri can Greenlandic GFR Calc Performed By: #### L 100.0500, L500.4050 #### [facility] [address] [place], [address] GAP 5 Normal 5-15 [facility] Comment on above: Order Comment: 103-1 Performed By: #### L 100.0500, L500.4050 #### [facility] [address] [place], [address] GFR/1.73 sq M.predicted among non-blacks MDRD (S/P/Bld) [Vol rate/Area] 93 mL/min/{1.73_m2} Normal >60 [facility] Comment on above: Order Comment: 103-1 Result Comment: Non- GFR Calc Performed By: #### L 100.0500, L500.4050 #### [facility] [address] [place], [address] Globulin (S) [Mass/Vol] 3.7 g/dL Normal 2.2-4.2 [facility] Comment on above: Order Comment: 103-1 Performed By: #### L 100.0500, L500.4050 #### [facility] [address] [place], [address] Glucose [Mass/Vol] 105 mg/dL Normal 74-106 [facility] Comment on above: Order Comment: 103-1 Result Comment: Fast ing Glucose result from 100 to 125 mg/dL suggests IMPAIRED HOMEOSTASIS per A.D.A. criteria. Performed By: #### L 100.0500, L500.4050 #### [facility] [address] [place], [address] Potassium [Moles/Vol] 4.4 mmol/L Normal 3.5-5.1 [facility] Comment on above: Order Comment: 103-1 Performed By: #### L 100.0500, L500.4050 #### [facility] [address] [place], [address] Sodium [Moles/Vol] 139 mmol/L Normal 136-145 [facility] Comment on above: Order Comment: 103-1 Performed By: #### L 100.0500, L500.4050 #### [facility] [address] [place], [address] T PROT 6.5 g/dL Normal 6.4-8.2 [facility] Comment on above: Order Comment: 103-1 Performed By: #### L 100.0500, L500.4050 #### [facility] [address] [place], [address] Urea nitrogen [Mass/Vol] 14 mg/dL Normal 7-18 [facility] Comment on above: Order Comment: 103-1 Performed By: #### L 100.0500, L500.4050 #### [facility] [address] [place], [address] Erythrocyte distribution wid th ratioOrdered By: Jared Guzman on 10-30-2024 Erythrocyte distribution width (RBC) [Ratio] 14.8 % High 11.6-14.6 [facility] Erythrocyte distribution wid th standard deviationOrdered By: Jared Guzman on 10-30-2024 Erythrocyte distribution width (RBC) [Entitic vol] 46.8 fL High 35.1-43.9 [facility] Estimated glomerular filtrat ion rate (GFR) AmericanOrdered By: Jared Guzman on 10-30-2024 Estimated GFR (MDRD) Amer 112 mL/min >60 [facility] Comment on above: GFR Calc Glomerular filtration rate ( GFR) estimationOrdered By: Jared Guzman on 10-30-2024 Estimated GFR (MDRD) Non-Af Amer 93 mL/min >60 [facility] Comment on above: Non- GFR Calc Glucose measurementOrdered B y: Jared Guzman on 10-30-2024 Glucose [Mass/Vol] 105 mg/dL 74-106 [facility] Comment on above: Fasting Glucose resu lt from 100 to 125 mg/dL suggests IMPAIRED HOMEOSTASIS per A.D.A. criteria. Hematocrit Auto (Bld) [Volum e fraction]Ordered By: Jared Guzman on 10-30-2024 Hematocrit (Bld) [Volume fraction] 32.9 % Low 37-47 [facility] Hemoglobin measurementOrdere d By: Jared Guzman on 10-30-2024 Hemoglobin (Bld) [Mass/Vol] 10.2 g/dL Low 12.0-15.0 [facility] - Chemistry and C hemistry - challengeOrdered By: Jared Guzman on 10-30-2024 AST [Catalytic activity/Vol] 18 U/L 15-37 [facility] MCV (mean corpuscular volume ) determinationOrdered By: Jared Guzman on 10-30-2024 MCV (RBC) [Entitic vol] 87.3 fL 81-99 [facility] Mean corpuscular hemoglobin (MCH) determinationOrdered By: Jared Guzman on 10-30-2024 MCH (RBC) [Entitic mass] 27.1 pg 27.0-32.0 [facility] Mean corpuscular hemoglobin concentration (MCHC) determinationOrdered By: Jared Guzman on 10-30-2024 MCHC (RBC) [Mass/Vol] 31.0 g/dL Low 32-36 [facility] Mean platelet volume determi nationOrdered By: Jared Guzman on 10-30-2024 Platelet mean volume (Bld) [Entitic vol] 9.7 fL 6.2-12.0 [facility] Platelet countOrdered By: Marcel Piper on 10-30-2024 Platelets (Bld) [#/Vol] 387 10*3/uL 150-450 [facility] Potassium measurementOrdered By: Jared Guzman on 10-30-2024 Potassium [Moles/Vol] 4.4 mmol/L 3.5-5.1 [facility] RBC Auto (Bld) [#/Vol]Ordere d By: Jared Guzman on 10-30-2024 RBC (Bld) [#/Vol] 3.77 10*6/uL Low 4.2-5.4 [facility] Serum anion gap measurementO rdered By: Jared Guzman on 10-30-2024 Anion gap [Moles/Vol] 5 mmol/L 5-15 [facility] Serum globulin measurementOr dered By: Jared Guzman on 10-30-2024 Globulin (S) [Mass/Vol] 3.7 g/dL 2.2-4.2 [facility] Serum or plasma alanine jones otransferase (ALT) measurementOrdered By: Jared Guzman on 10-30-2024 ALT [Catalytic activity/Vol] 25 U/L 13-56 [facility] Serum or plasma albumin mauricio urement (mass/volume)Ordered By: Jared Guzman on 10-30-2024 Albumin [Mass/Vol] 2.8 g/dL Low 3.2-5.0 [facility] Serum or plasma alkaline abbey sphatase measurementOrdered By: Jared Guzman on 10-30-2024 ALP [Catalytic activity/Vol] 113 U/L 45-117 [facility] Serum or plasma calcium mauricio urement (mass/volume)Ordered By: Jared Guzman on 10-30-2024 Calcium [Mass/Vol] 8.8 mg/dL 8.5-10.1 [facility] Serum or plasma creatinine m easurement (mass/volume)Ordered By: Jared Guzman on 10-30-2024 Creatinine [Mass/Vol] 0.69 mg/dL 0.55-1.02 [facility] Comment on above: The validity of the calculated GFR & GFRAA in patients over 70 years has not been determined. Clinical correlation is essential. Serum or plasma urea nitroge n measurement (mass/volume)Ordered By: Jared Guzman on 10-30-2024 Urea nitrogen [Mass/Vol] 14 mg/dL 7-18 [facility] Sodium levelOrdered By: Main Guzman on 10-30-2024 Sodium [Moles/Vol] 139 mmol/L 136-145 [facility] Total proteinOrdered By: Mike Guzman on 10-30-2024 Protein [Mass/Vol] 6.5 g/dL 6.4-8.2 [facility] White blood cell (WBC) count Ordered By: Jared Guzman on 10-30-2024 WBC (Bld) [#/Vol] 9.0 10*3/uL 4.4-11.0 [facility] ECG 12-LEADon 2024 ECG 12-LEAD IMPRESSION: Sinus rhythm Left bundle branch block Compared to ECG 10/18/24 No significant change Electronically Signed On 2024 00:25:40 EST by Fermin Melchor Normal [facility] 36on 10-24-2024 36 Shayy called back w e scheduled an appointment with Ana Maria on 11/27/24 and another one on 03/27/25 with Thalia. Normal [facility] 36 Normal [facility] CBC (HEMOGRAM)on 10-24-2024 Erythrocyte distribution width (RBC) [Ratio] 13.8 % Normal 11.5-15.0 [facility] Comment on above: Performed By: #### L [id number] ####Curriculum Designer: KEMAR ABEBE ([id number])[facility] ([facility])[address] [place] [address] Hematocrit (Bld) [Volume fraction] 39.3 % Normal Male: 40.0-52.0 ; Female: 35.0-47.0 [facility] Comment on above: Performed By: #### L [id number] ####Curriculum Designer: KEMAR ABEBE ([id number])[facility] ([facility])[address] [place] [address] Hemoglobin (Bld) [Mass/Vol] 12.3 g/dL Normal 11.7-18.0 [facility] Comment on above: Performed By: #### L [id number] ####Curriculum Designer: KEMAR ABEBE ([id number])[facility] ([facility])[address] [place] [address] MCH (RBC) [Entitic mass] 27.0 pg Normal 26.0-34.0 [facility] Comment on above: Performed By: #### L [id number] ####Curriculum Designer: KEMAR ABEBE ([id number])[facility] ([facility])[address] [place] [address] MCHC 31.3 % Normal 30.5-36.0 [facility] Comment on above: Performed By: #### L AB294 ####Curriculum Designer: KEMAR ABEBE ([id number])NATI WADEKATIA ([facility]AB)[address] MCV (RBC) [Entitic vol] 86.2 fL Normal 77.0-99.0 [facility] Comment on above: Performed By: #### L [id number] ####Curriculum Designer: KEMAR ABEBE ([id number])[facility] [place] ([facility])[address] Platelet mean volume (Bld) [Entitic vol] 9.7 fL Normal 9.0-12.7 [facility] Comment on above: Performed By: #### L AB294 ####Curriculum Designer: KEMAR ABEBE ([id number])[facility]ITALWar[facility]EMIMBR[facility] HOSPITALJermaine (SBHLAB)[address] Platelets (Bld) [#/Vol] 465 10*3/uL High 140-440 [facility] Comment on above: Performed By: #### L [id number] ####Curriculum Designer: KEMAR ABEBE ([id number])[facility]ITAL[facility] KASPERJermaine ([facility])[address] [place] [address] RBC (Bld) [#/Vol] 4.56 10*6/uL Normal Male: 4.40-5.90; Female: 3.80-5.20 [facility] Comment on above: Performed By: #### L [id number] ####Curriculum Designer: KEMAR ABEBE ([id number])[facility]ITAL[facility]ITALN ([facility])[address] [place] [address] WBC (Bld) [#/Vol] 9.8 10*3/uL Normal 3.6-10.7 [facility] Comment on above: Performed By: #### L [id number] ####Curriculum Designer: KEMAR ABEBE ([id number])[facility]ITAL[facility] WADEMARYN (SBHLAB)[address] CBC panel Auto (Bld)Ordered By: Justin Mao on 10-24-2024 Erythrocyte distribution width (RBC) [Ratio] 13.8 % 11.5 - 15.0 % [facility] Hematocrit (Bld) [Volume fraction] 39.3 % Male: 40.0-52.0 ; Female: 35.0-47.0 [facility] Hemoglobin (Bld) [Mass/Vol] 12.3 g/dL 11.7 - 18.0 g/dL [facility] Interpretation and review of laboratory results Abnormal [facility] MCH (RBC) [Entitic mass] 27 pg 26.0 - 34.0 pg [facility] MCHC (RBC) [Mass/Vol] 31.3 % 30.5 - 36.0 % [facility] MCV (RBC) [Entitic vol] 86.2 fL 77.0 - 99.0 fL [facility] Platelet mean volume (Bld) [Entitic vol] 9.7 fL 9.0 - 12.7 fL [facility] Platelets (Bld) [#/Vol] 465 10*3/uL High 140 - 440 10*3/uL [facility] RBC (Bld) [#/Vol] 4.56 10*6/uL Male: 4.40-5.90; Female: 3.80-5.20 [facility] WBC (Bld) [#/Vol] 9.8 10*3/uL 3.6 - 10.7 10*3/uL [facility] COMPLETE URINALYSISon 2023 BACTERIA (#/HPF) IN URINE Negative Normal Negative [facility] Comment on above: Performed By: #### L [id number] ####Curriculum Designer: KEMAR ABEBE ([id number])[facility]SONJerm[facility] (SBHLAB)[address] BILIRUBIN, TOTAL PRESENCE IN URINE Negative Normal Negative [facility] Comment on above: Performed By: #### L [id number] ####Curriculum Designer: KEMAR ABEBE ([id number])[facility] (SBHL[facility])[address] Clarity (U) Clear Normal Clear [facility] Comment on above: Performed By: #### L [id number] ####Curriculum Designer: KEMAR ANDRAE ([id number])[facility] [place] ([facility])[address] Color (U) Light Yellow Normal Lt. Yellow [facility] Comment on above: Performed By: #### L [id number] ####Curriculum Designer: KEMAR ANDRAE ([id number])[facility]ITALA [facility]IM[facility]ITALN (SBHLAB)[address] [place] [address] [place] GLUCOSE (MG/DL) IN URINE Normal Normal Normal (<70) [facility] Comment on above: Performed By: #### L [id number] ####Curriculum Designer: KEMAR MOMINHARRISON ([id number])[facility]ITALN (HLAB)[address] HEMOGLOBIN PRESENCE IN URINE Negative Normal Negative [facility] Comment on above: Performed By: #### L [id number] ####Curriculum Designer: KEMAR LUDWIGSAAD ([id number])[facility]ITALA [facility] ([facility])[address] Ketones Ql (U) Negative Normal Negative [facility] Comment on above: Performed By: #### L [id number] ####Curriculum Designer: KEMAR LUDWIGSAAD ([id number])[facility]IM[facility]OSPITALN (HLAB)[address] LEUKOCYTE ESTERASE PRESENCE IN URINE BY TEST STRIP Negative Normal Negative [facility] Comment on above: Performed By: #### L [id number] ####Curriculum Designer: KEMAR LUDWIGSAAD ([id number])[facility] [place] (SB[facility])[address] [place] [address] [place] MUCUS (#/LPF) IN URINE SEDIMENT Few Normal Negative [facility] Comment on above: Performed By: #### L [id number] ####Curriculum Designer: KEMAR LUDWIGSAAD ([id number])[facility] ([facility])[address] [place] [address] [place] NITRITE PRESENCE IN URINE Negative Normal Negative [facility] Comment on above: Performed By: #### L [id number] ####Curriculum Designer: KEMAR ABEBE ([id number])[facility]ITALWar[facility] [place] (SBHLAB)[address] [place] [address] [place] NON-SQUAMOUS EPITHELIAL (#/HPF) IN URINE 3-5 Abnormal Negative [facility] Comment on above: Performed By: #### L [id number] ####Curriculum Designer: KEMAR ABEBE ([id number])[facility]A [facility]BMIMBR[facility] HOSPITALN (SBHLAB)[address] pH (U) 7.0 [pH] Normal 5.0-8.0 [facility] Comment on above: Performed By: #### L [id number] ####Curriculum Designer: KEMAR ABEBE ([id number])[facility]ITALWarren [facility]ADEMIMBR[facility]OR[facility]OSPITALN ([facility])[address] [place] [address] Protein (U) [Mass/Vol] 70 mg/dL Abnormal Negative [facility] Comment on above: Performed By: #### L [id number] ####Curriculum Designer: KEMAR ABEBE ([id number])[facility]ITALWarren [place] (SBHLAB)[address] RBC (#/HPF) IN URINE SEDIMENT 3-5 Abnormal 0-2 [facility] Comment on above: Performed By: #### L [id number] ####Curriculum Designer: KEMAR ABEBE ([id number])[facility]OSPITALWarren [facility] (SBHLAB)[address] Specific gravity (U) [Rel density] 1.011 Normal 1.005-1.030 [facility] Comment on above: Performed By: #### L [id number] ####Curriculum Designer: KEMAR ABEBE ([id number])[facility]BMIM[facility]ITALN (SBHLAB)[address] SQUAMOUS EPITHELIAL CELLS (#/HPF) IN URINE SEDIMENT 0-2 Normal 3-5 [facility] Comment on above: Performed By: #### L [id number] ####Curriculum Designer: KEMAR ABEBE ([id number])[facility] [place] (SBHLAB)[address] UROBILINOGEN (MG/DL) IN URINE Normal Normal Normal (0-1) [facility] Comment on above: Performed By: #### L [id number] ####Curriculum Designer: KEMAR ABEBE ([id number])[facility] [place] ([facility])[address] WBC (LEUKOCYTE) (#/HPF) IN URINE SEDIMENT 6-10 Abnormal 0-5 [facility] Comment on above: Performed By: #### L [id number] ####Curriculum Designer: KEMAR ABEBE ([id number])[facility] [place] (SB[facility])[address] COMPREHENSIVE METABOLIC PANE Gigi 10-24-2024 Albumin [Mass/Vol] 3.0 g/dL Low 3.5-5.0 [facility] Comment on above: Performed By: #### L [id number], LAB17 ####Curriculum Designer: KEMAR ABEBE ([id number])[facility] [place] ([facility])[address] ALP [Catalytic activity/Vol] 117 U/L Normal [facility] Comment on above: Performed By: #### L [id number], LAB17 ####Curriculum Designer: KEMAR ABEBE ([id number])[facility] [place] ([facility])[address] ALT [Catalytic activity/Vol] 22 U/L Normal [facility] Comment on above: Performed By: #### L [id number], LAB17 ####Curriculum Designer: KEMAR ABEBE ([id number])[facility] [place] ([facility])[address] Anion gap [Moles/Vol] 10 mmol/L Normal 3-13 [facility] Comment on above: Performed By: #### L [id number], LAB17 ####Curriculum Designer: KEMAR ABEBE ([id number])[facility] [place] (SB[facility])[address] [place] [address] [place] AST [Catalytic activity/Vol] 28 U/L Normal <34 [facility] Comment on above: Performed By: #### L [id number], LAB17 ####Curriculum Designer: KEMAR ABEBE ([id number])[facility] [place] ([facility])[address] Bilirubin [Mass/Vol] 0.4 mg/dL Normal <1.2 [facility] [facility] Comment on above: Performed By: #### L [id number], [id number] ####Curriculum Designer: KEMAR ABEBE ([id number])[facility] [place] (SB[facility])[address] Calcium [Mass/Vol] 9.3 mg/dL Normal 8.4-10.2 [facility] Comment on above: Performed By: #### L [id number], [id number] ####Curriculum Designer: KEMAR ABEBE ([id number])[facility] [place] (SB[facility])[address] [place] [address] [place] Chloride [Moles/Vol] 100 mmol/L Normal 98-107 [facility] Comment on above: Performed By: #### L [id number], [id number] ####Curriculum Designer: KEMAR ABEBE ([id number])[facility] [place] (SB[facility])[address] [place] [address] [place] CO2 [Moles/Vol] 27 mmol/L Normal 22-29 [facility] Comment on above: Performed By: #### L [id number], [id number] ####Curriculum Designer: KEMAR ABEBE ([id number])[facility] [place] (SB[facility])[address] [place] [address] [place] Creatinine [Mass/Vol] 0.84 mg/dL Normal [facility] Comment on above: Performed By: #### L [id number], [id number] ####Curriculum Designer: KEMAR ABEBE ([id number])[facility] [place] (SB[facility])[address] GLOMERULAR FILTRATION RATE ML/MIN/1.73 SQ M.PREDICTED 81.2 mL/min/1.73m*2 Normal >60.0 [facility] Comment on above: Result Comment: Calc ulation based on the Chronic Kidney Disease Epidemiology Collaboration (CKD-EPI) equation refit without adjustment for race Performed By: #### L [id number], [id number] ####Curriculum Designer: KEMAR ABEBE ([id number])[facility] (SBHLAB)[address] Glucose [Mass/Vol] 207 mg/dL High 74-100 [facility] Comment on above: Performed By: #### L [id number], [id number] ####Curriculum Designer: KEMAR ABEBE ([id number])[facility] (HLAB)[address] Potassium [Moles/Vol] 4.6 mmol/L Normal 3.5-5.1 [facility] Comment on above: Result Comment: [facility] potassium values may be up to 0.5 mmol/L lower than serum values. Performed By: #### L [id number], [id number] ####Curriculum Designer: KEMAR ABEBE ([id number])[facility] (HLAB)[address] Protein [Mass/Vol] 7.0 g/dL Normal 6.4-8.3 [facility] Comment on above: Performed By: #### L [id number], [id number] ####Curriculum Designer: KEMAR ABEBE ([id number])[facility] (SBHLAB)[address] [place] [address] [place] Sodium [Moles/Vol] 137 mmol/L Normal 136-145 [facility] Comment on above: Performed By: #### L [id number], [id number] ####Curriculum Designer: KEMAR ABEBE ([id number])[facility] (SBHLAB)[address] [place] [address] [place] Urea nitrogen [Mass/Vol] 15 mg/dL Normal 9-23 [facility] Comment on above: Performed By: #### L [id number], [id number] ####Curriculum Designer: KEMAR ABEBE ([id number])[facility] (SBAB)[address] [place] [address] Comprehensive metabolic 1998 panelOrdered By: Hans Watson on 10-24-2024 Albumin [Mass/Vol] 3 g/dL Low 3.5 - 5.0 g/dL [facility] ALP [Catalytic activity/Vol] 117 U/L [facility] ALT [Catalytic activity/Vol] 22 U/L [facility] Anion gap [Moles/Vol] 10 mmol/L 3 - 13 mmol/L [facility] AST [Catalytic activity/Vol] 28 U/L NINF - 34 U/L [facility] Bilirubin [Mass/Vol] 0.4 mg/dL NINF - 1.2 mg/dL [facility] Calcium [Mass/Vol] 9.3 mg/dL 8.4 - 10. 2 mg/dL [facility] Chloride [Moles/Vol] 100 mmol/L 98 - 10 7 mmol/L [facility] CO2 [Moles/Vol] 27 mmol/L 22 - 29 mmol/L [facility] Creatinine [Mass/Vol] 0.84 mg/dL [facility] GFR/1.73 sq M.predicted (S/P/Bld) [Vol rate/Area] 81.2 mL/min - PINF [facility] Comment on above: Calculation based on the Chronic Kidney Disease Epidemiology Collaboration (CKD-EPI) equation refit without adjustment for race Glucose [Mass/Vol] 207 mg/dL High 74 - 100 mg/dL [facility] Interpretation and review of laboratory results Abnormal [facility] Potassium [Moles/Vol] 4.6 mmol/L 3.5 - 5.1 mmol/L [facility] Comment on above: Plasma potassium helen ues may be up to 0.5 mmol/L lower than serum values. Protein [Mass/Vol] 7 g/dL 6.4 - 8.3 g/dL [facility] Sodium [Moles/Vol] 137 mmol/L 136 - 145 mmol/L [facility] Urea nitrogen [Mass/Vol] 15 mg/dL 9 - 23 mg/dL [facility] ED Nursing Noteon 10-24-2024 ED Nursing Note Pt placed on bedpan, urine sample collected and sent to lab. Normal [facility] ED Nursing Note Pt provided with sandwich and pop, ok per Dr Swartz Normal [facility] ED Nursing Note Normal [facility] ED Nursing Note Pt arrives by Roni Perez MS for blood in urine and change in mental status. Pt has chronic lewis and has blood present. BP elevated, BG 154 (low per SNF because pt is normally in 300 range). Pt is DNR-CCA. Normal [facility] ED Provider Noteon ED Provider Note Normal [facility] HIGH SENSITIVITY TROPONIN, S ERIAL BASELINEon 10-24-2024 TROPONIN HIGH SENSITIVITY BASELINE <3 Normal [facility] Comment on above: Performed By: #### L [id number], [id number] ####Curriculum Designer: KEMAR ABEBE ([id number])[facility] [place] (SBAB)[address] [place] [address] LACTIC ACID WITH REFLEXon Lactate [Moles/Vol] 1.5 mmol/L Normal 0.5-2.2 [facility] Comment on above: Performed By: #### L [id number] ####Curriculum Designer: KEMAR ABEBE ([id number])[facility] [place] (SBHLAB)[address] [place] [address] Laboratory - Chemistry and C hemistry - challengeon 10-24-2024 Lactate [Moles/Vol] 1.5 mmol/L 0.5 - 2. 2 mmol/L [facility] Glucose [Mass/Vol] 175 mg/dL High 70 - 100 mg/dL [facility] No Panel Informationon 10-24 Troponin HS, Serial Baseline ng/L ng/L [facility] Interpretation and review of laboratory results Normal [facility] Interpretation and review of laboratory results Abnormal [facility] Performed by: [facility], [address] [place] [address] CLIA ID: [id number] [facility] Urinalysis complete panel (U )on 10-24-2024 Bacteria LM.HPF (Urine sed) [#/Area] Negative Negative /HPF [facility] Bilirubin Ql (U) Negative Negative mg/dL [facility] Clarity (U) Clear Clear [facility] Color (U) Light Yellow Lt. Yellow [facility] Epithelial cells.squamous LM.HPF (Urine sed) [#/Area] 0-2 [facility] Glucose Ql (U) Normal Normal (<70) mg/dL [facility] Hemoglobin Ql (U) Negative Negative mg/dL [facility] Interpretation and review of laboratory results Abnormal [facility] Ketones (U) [Mass/Vol] Negative Negat bernard mg/dL [facility] Leukocyte esterase Test strip Ql (U) Negative Negative Kat/uL [facility] Mucus LM.HPF (Urine sed) [#/Area] Few Negative /LPF [facility] Nitrite Ql (U) Negative Negative [facility] Non-Squamous Epithalial Cells, Urine 3-5 Abnormal Negative /HPF [facility] pH (U) 7.0 [pH] 5.0 - 8.0 pH [facility] Protein (U) [Mass/Vol] 70 mg/dL Abnormal Negative [facility] RBC LM.HPF (Urine sed) [#/Area] 3-5 Abnormal [facility] Specific gravity (U) [Rel density] 1.011 1.005 - 1.030 [facility] Urobilinogen (U) [Mass/Vol] Normal Normal (0-1) mg/dL [facility] WBC LM.HPF (Urine sed) [#/Area] 6-10 Abnormal [facility] [id number] 10-23-2024 [id number] Normal [facility] [id number] Discharge med list transmitted to return back to [facility] via [facility] per TCC request. [facility] [id number] Normal [facility] [id number] DC orders in and sig nazario by Dr. Thomas. EQUIPMENT OPERATOR/LABORER/SUPERVISOR set up transport. YARD DEMURRAGE CLERK tasked in [facility] to send DC info [facility] . DC back to [facility] in stable condition. . [facility] CBC W Auto Differential pane l (Bld)on 10-23-2024 Basophils (Bld) [#/Vol] 0.1 10*3/uL 0.0 - 0.2 10*3/uL [facility] Basophils/100 WBC (Bld) 0.7 % 0.0 - 2.0 % [facility] Eosinophils (Bld) [#/Vol] 0.2 10*3/uL 0.0 - 0.5 10*3/uL [facility] Eosinophils/100 WBC (Bld) 2.4 % 0.0 - 6.0 % [facility] Erythrocyte distribution width (RBC) [Ratio] 13.5 % 11.5 - 15.0 % [facility] Hematocrit (Bld) [Volume fraction] 29.9 % Male: 40.0-52.0 ; Female: 35.0-47.0 [facility] Hemoglobin (Bld) [Mass/Vol] 9.5 g/dL Low 11.7 - 18.0 g/dL [facility] Immature granulocytes (Bld) [#/Vol] 0.1 10*3/uL High NINF - 0.1 10*3/uL [facility] Immature granulocytes/100 WBC (Bld) 1.5 % 0.0 - 2.0 % [facility] Interpretation and review of laboratory results Abnormal [facility] Lymphocytes (Bld) [#/Vol] 1.8 10*3/uL 1.0 - 4.3 10*3/uL [facility] Lymphocytes/100 WBC (Bld) 24.6 % 15.0 - 45.0 % [facility] MCH (RBC) [Entitic mass] 27.1 pg 26.0 - 34.0 pg [facility] MCHC (RBC) [Mass/Vol] 31.8 % 30.5 - 36.0 % [facility] MCV (RBC) [Entitic vol] 85.2 fL 77.0 - 99.0 fL [facility] Monocytes (Bld) [#/Vol] 0.8 10*3/uL 0.0 - 0.9 10*3/uL [facility] Monocytes/100 WBC (Bld) 10.6 % 5.0 - 13.0 % [facility] Neutrophils (Bld) [#/Vol] 4.5 10*3/uL 1.8 - 7.5 10*3/uL [facility] Neutrophils/100 WBC (Bld) 60.2 % 38.0 - 82.0 % [facility] Nucleated RBC/100 WBC (Bld) [Ratio] 0 % [facility] Platelet mean volume (Bld) [Entitic vol] 9.6 fL 9.0 - 12.7 fL [facility] Platelets (Bld) [#/Vol] 407 10*3/uL 140 - 440 10*3/uL [facility] RBC (Bld) [#/Vol] 3.51 10*6/uL Male: 4.40-5.90; Female: 3.80-5.20 [facility] WBC (Bld) [#/Vol] 7.5 10*3/uL 3.6 - 10.7 10*3/uL [facility] CBC WITH AUTO DIFFERENTIALon 10-23-2024 Basophils (Bld) [#/Vol] 0.1 10*3/uL Normal 0.0-0.2 [facility] Comment on above: Performed By: #### L [id number] ####Curriculum Designer: KEMAR ABEBE ([id number])[facility] (SBAB)[address] [place] [address] Basophils/100 WBC (Bld) 0.7 % Normal 0.0-2.0 [facility] Comment on above: Performed By: #### L [id number] ####Curriculum Designer: KEMAR ABEBE ([id number])[facility] (SBHLAB)[address] [place] [address] Eosinophils (Bld) [#/Vol] 0.2 10*3/uL Normal 0.0-0.5 [facility] Comment on above: Performed By: #### L [id number] ####Curriculum Designer: KEMAR ABEBE ([id number])[facility] (SB[facility]AB)[address] [place] [address] [place] Eosinophils/100 WBC (Bld) 2.4 % Normal 0.0-6.0 [facility] Comment on above: Performed By: #### L [id number] ####Curriculum Designer: KEMAR ABEBE ([id number])[facility] (SB[facility]AB)[address] Erythrocyte distribution width (RBC) [Ratio] 13.5 % Normal 11.5-15.0 [facility] Comment on above: Performed By: #### L [id number] ####Curriculum Designer: KEMAR ABEBE ([id number])[facility] ([facility])[address] [place] [address] Hematocrit (Bld) [Volume fraction] 29.9 % Normal Male: 40.0-52.0 ; Female: 35.0-47.0 [facility] Comment on above: Performed By: #### L [id number] ####Curriculum Designer: KEMAR ABEBE ([id number])[facility] ([facility])[address] [place] [address] Hemoglobin (Bld) [Mass/Vol] 9.5 g/dL Low 11.7-18.0 [facility] Comment on above: Performed By: #### L [id number] ####Curriculum Designer: KEMAR ABEBE ([id number])[facility] [place] ([facility])[address] [place] [address] IMMATURE GRANS % 1.5 % Normal 0.0-2.0 [facility] Comment on above: Performed By: #### L [id number] ####Curriculum Designer: KEMAR ABEBE ([id number])[facility] ([facility])[address] [place] [address] IMMATURE GRANS ABSOLUTE 0.1 10*3/uL High <0.1 [facility] Comment on above: Performed By: #### L [id number] ####Curriculum Designer: KEMAR ABEBE ([id number])[facility] ([facility])[address] [place] [address] Lymphocytes (Bld) [#/Vol] 1.8 10*3/uL Normal 1.0-4.3 [facility] Comment on above: Performed By: #### L [id number] ####Curriculum Designer: KEMAR ABEBE ([id number])[facility] [place] (SBHLAB)[address] Lymphocytes/100 WBC (Bld) 24.6 % Normal 15.0-45.0 [facility] Comment on above: Performed By: #### L [id number] ####Curriculum Designer: KEMAR ABEBE ([id number])[facility] (SBHLAB)[address] MCH (RBC) [Entitic mass] 27.1 pg Normal 26.0-34.0 [facility] Comment on above: Performed By: #### L [id number] ####Curriculum Designer: KEMAR ABEBE ([id number])[facility]ITAL[facility] (SBHLAB)[address] [place] [address] MCHC 31.8 % Normal 30.5-36.0 [facility] Comment on above: Performed By: #### L [id number] ####Curriculum Designer: KEMAR ABEBE ([id number])[facility] (SBHLAB)[address] [place] [address] MCV (RBC) [Entitic vol] 85.2 fL Normal 77.0-99.0 [facility] Comment on above: Performed By: #### L [id number] ####Curriculum Designer: KEMAR ABEBE ([id number])[facility] (SBHLAB)[address] [place] [address] Monocytes (Bld) [#/Vol] 0.8 10*3/uL Normal 0.0-0.9 [facility] Comment on above: Performed By: #### L [id number] ####Curriculum Designer: KEMAR ABEBE ([id number])[facility] (SBHLAB)[address] Monocytes/100 WBC (Bld) 10.6 % Normal 5.0-13.0 [facility] Comment on above: Performed By: #### L [id number] ####Curriculum Designer: KEMAR ABEBE ([id number])[facility] [place] (SBHLAB)[address] NEUTROPHILS ABSOLUTE 4.5 10*3/uL Normal 1.8-7.5 [facility] Comment on above: Performed By: #### L [id number] ####Curriculum Designer: KEMAR ABEBE ([id number])[facility] (SBHLAB)[address] Neutrophils/100 WBC (Bld) 60.2 % Normal 38.0-82.0 [facility] Comment on above: Performed By: #### L [id number] ####Curriculum Designer: KEMAR ABEBE ([id number])[facility] (SBHLAB)[address] NRBC 0.0 /100 WBCs Normal 0.0-2.0 [facility] Comment on above: Performed By: #### L [id number] ####Curriculum Designer: KEMAR ABEBE ([id number])[facility] (SBHLAB)[address] Platelet mean volume (Bld) [Entitic vol] 9.6 fL Normal 9.0-12.7 [facility] Comment on above: Performed By: #### L [id number] ####Curriculum Designer: KEMAR ABEBE ([id number])[facility] (SBHLAB)[address] Platelets (Bld) [#/Vol] 407 10*3/uL Normal 140-440 [facility] Comment on above: Performed By: #### L [id number] ####Curriculum Designer: KEMAR ABEBE ([id number])[facility] [place] (SBHLAB)[address] [place] [address] [place] RBC (Bld) [#/Vol] 3.51 10*6/uL Normal Male: 4.40-5.90; Female: 3.80-5.20 [facility] Comment on above: Performed By: #### L [id number] ####Curriculum Designer: KEMAR ABEBE ([id number])[facility] [place] (SBHLAB)[address] WBC (Bld) [#/Vol] 7.5 10*3/uL Normal 3.6-10.7 [facility] Comment on above: Performed By: #### L [id number] ####Curriculum Designer: KEMAR ABEBE ([id number])[facility] [place] (SB[facility])[address] COMPREHENSIVE METABOLIC PANE Gigi 10-23-2024 Albumin [Mass/Vol] 2.6 g/dL Low 3.5-5.0 [facility] Comment on above: Performed By: #### L AB17, [id number] ####Curriculum Designer: KEMAR ABEBE ([id number])[facility] [place] (SBHLAB)[address] ALP [Catalytic activity/Vol] 115 U/L Normal [facility] Comment on above: Performed By: #### L AB17, [id number] ####Curriculum Designer: KEMAR ABEBE ([id number])[facility] [place] (SB[facility])[address] ALT [Catalytic activity/Vol] 27 U/L Normal [facility] Comment on above: Performed By: #### L AB17, [id number] ####Curriculum Designer: KEMAR ABEBE ([id number])[facility] [place] (SBHLAB)[address] Anion gap [Moles/Vol] 7 mmol/L Normal 3-13 [facility] Comment on above: Performed By: #### L AB17, [id number] ####Curriculum Designer: KEMAR ABEBE ([id number])[facility] [place] (SB[facility]AB)[address] AST [Catalytic activity/Vol] 18 U/L Normal <34 [facility] Comment on above: Performed By: #### L AB17, [id number] ####Curriculum Designer: KEMAR ABEBE ([id number])[facility] [place] (SBHLAB)[address] [place] [address] [place] Bilirubin [Mass/Vol] 0.3 mg/dL Normal <1.2 [facility] Comment on above: Performed By: #### L AB17, [id number] ####Curriculum Designer: KEMAR ABEBE ([id number])[facility] [place] (SBHLAB)[address] Calcium [Mass/Vol] 8.7 mg/dL Normal 8.4-10.2 [facility] Comment on above: Performed By: #### L AB17, [id number] ####Curriculum Designer: KEMAR ABEBE ([id number])[facility] [place] (SBHLAB)[address] Chloride [Moles/Vol] 101 mmol/L Normal 98-107 [facility] Comment on above: Performed By: #### L AB17, [id number] ####Curriculum Designer: KEMAR ABEBE ([id number])[facility] [place] (SBHLAB)[address] CO2 [Moles/Vol] 29 mmol/L Normal 22-29 [facility] Comment on above: Performed By: #### L AB17, [id number] ####Curriculum Designer: KEMAR ABEBE ([id number])[facility] (SBHLAB)[address] Creatinine [Mass/Vol] 0.84 mg/dL Normal [facility] Comment on above: Performed By: #### L AB17, [id number] ####Curriculum Designer: KEMAR ABEBE ([id number])[facility] [place] (SBHLAB)[address] [place] [address] [place] GLOMERULAR FILTRATION RATE ML/MIN/1.73 SQ M.PREDICTED 81.2 mL/min/1.73m*2 Normal >60.0 [facility] Comment on above: Result Comment: Calc ulation based on the Chronic Kidney Disease Epidemiology Collaboration (CKD-EPI) equation refit without adjustment for race Performed By: #### L AB17, [id number] ####Curriculum Designer: KEMAR ABEBE ([id number])[facility] [place] (SBHLAB)[address] Glucose [Mass/Vol] 214 mg/dL High 74-100 [facility] Comment on above: Performed By: #### L AB17, [id number] ####Curriculum Designer: KEMAR ABEBE ([id number])[facility] (SBHLAB)[address] Potassium [Moles/Vol] 3.4 mmol/L Low 3.5-5.1 [facility] Comment on above: Result Comment: [facility] potassium values may be up to 0.5 mmol/L lower than serum values. Performed By: #### L AB17, [id number] ####Curriculum Designer: KEMAR ABEBE ([id number])[facility] (SBHLAB)[address] Protein [Mass/Vol] 6.1 g/dL Low 6.4-8.3 [facility] Comment on above: Performed By: #### L AB17, [id number] ####Curriculum Designer: KEMAR ABEBE ([id number])[facility] (SBHLAB)[address] Sodium [Moles/Vol] 137 mmol/L Normal 136-145 [facility] Comment on above: Performed By: #### L AB17, [id number] ####Curriculum Designer: KEMAR ABEBE ([id number])[facility] [place] (SBHLAB)[address] Urea nitrogen [Mass/Vol] 21 mg/dL Normal 9-23 [facility] Comment on above: Performed By: #### L AB17, [id number] ####Curriculum Designer: KEMAR ABEBE ([id number])[facility] (SBHLAB)[address] Comprehensive metabolic 1998 panelon 10-23-2024 Albumin [Mass/Vol] 2.6 g/dL Low 3.5 - 5.0 g/dL [facility] ALP [Catalytic activity/Vol] 115 U/L [facility] ALT [Catalytic activity/Vol] 27 U/L [facility] Anion gap [Moles/Vol] 7 mmol/L 3 - 13 mmol/L [facility] AST [Catalytic activity/Vol] 18 U/L NINF - 34 U/L [facility] Bilirubin [Mass/Vol] 0.3 mg/dL NINF - 1.2 mg/dL [facility] Calcium [Mass/Vol] 8.7 mg/dL 8.4 - 10. 2 mg/dL [facility] Chloride [Moles/Vol] 101 mmol/L 98 - 10 7 mmol/L [facility] CO2 [Moles/Vol] 29 mmol/L 22 - 29 mmol/L [facility] Creatinine [Mass/Vol] 0.84 mg/dL [facility] GFR/1.73 sq M.predicted (S/P/Bld) [Vol rate/Area] 81.2 mL/min - PINF [facility] Comment on above: Calculation based on the Chronic Kidney Disease Epidemiology Collaboration (CKD-EPI) equation refit without adjustment for race Glucose [Mass/Vol] 214 mg/dL High 74 - 100 mg/dL [facility] Interpretation and review of laboratory results Abnormal [facility] Potassium [Moles/Vol] 3.4 mmol/L Low 3.5 - 5.1 mmol/L [facility] Comment on above: Plasma potassium helen ues may be up to 0.5 mmol/L lower than serum values. Protein [Mass/Vol] 6.1 g/dL Low 6.4 - 8.3 g/dL [facility] Sodium [Moles/Vol] 137 mmol/L 136 - 145 mmol/L [facility] Urea nitrogen [Mass/Vol] 21 mg/dL 9 - 23 mg/dL [facility] - Chemistry and C hemistry - challengeon 10-23-2024 Glucose [Mass/Vol] 309 mg/dL High 70 - 100 mg/dL [facility] Glucose [Mass/Vol] 296 mg/dL High 70 - 100 mg/dL [facility] Glucose [Mass/Vol] 240 mg/dL High 70 - 100 mg/dL [facility] Magnesium [Mass/Vol] 1.9 mg/dL 1.6 - 2 .6 mg/dL [facility] MAGNESIUMon 10-23-2024 Magnesium [Mass/Vol] 1.9 mg/dL Normal 1.6-2.6 [facility] Comment on above: Result Comment: MARIE Askew COMMENTS:Higher values can be expected in females during menses. Performed By: #### L AB17, [id number] ####Curriculum Designer: KEMAR ABEBE ([id number])[facility] (SBHLAB)[address] Magnesium [Mass/Vol]on 10-23 Interpretation and review of laboratory results Normal [facility] Higher values can be expected in females during menses. [facility] No Panel Informationon 10-23 Interpretation and review of laboratory results Abnormal [facility] Performed by: [facility], [address] [place] [address] CLIA ID: [id number] [facility] Interpretation and review of laboratory results Abnormal [facility] Performed by: [facility], [address] [place] [address] CLIA ID: [id number] [facility] Interpretation and review of laboratory results Abnormal [facility] Performed by: [facility], [address] [place] [address] CLIA ID: [id number] [facility] Nursing Noteon 10-23-2024 Nursing Note Report called to Cassy kelley RN at [facility]. Normal [facility] Progress Noteon 10-23-2024 Progress Note Normal [facility] Progress Note Normal [facility] Progress Note Normal [facility] 30on 10-22-2024 30 Normal [facility] 30 Normal [facility] Bacteria identified Aer cx N om (Unsp spec)Ordered By: Timi Ryder on 10-22-2024 Gram Stain Result Few Polymorphonuclea r leukocytes per low power field [facility] Gram Stain Result No organisms seen [facility] CBC W Auto Differential pane l (Bld)on 10-22-2024 Basophils (Bld) [#/Vol] 0.1 10*3/uL 0.0 - 0.2 10*3/uL [facility] Basophils/100 WBC (Bld) 0.5 % 0.0 - 2.0 % [facility] Eosinophils (Bld) [#/Vol] 0.2 10*3/uL 0.0 - 0.5 10*3/uL [facility] Eosinophils/100 WBC (Bld) 1.7 % 0.0 - 6.0 % [facility] Erythrocyte distribution width (RBC) [Ratio] 13.5 % 11.5 - 15.0 % [facility] Hematocrit (Bld) [Volume fraction] 30 % Male: 40.0-52.0 ; Female: 35.0-47.0 [facility] Hemoglobin (Bld) [Mass/Vol] 9.7 g/dL Low 11.7 - 18.0 g/dL [facility] Immature granulocytes (Bld) [#/Vol] 0.1 10*3/uL High NINF - 0.1 10*3/uL [facility] Immature granulocytes/100 WBC (Bld) 1.1 % 0.0 - 2.0 % [facility] Interpretation and review of laboratory results Abnormal [facility] Lymphocytes (Bld) [#/Vol] 1.6 10*3/uL 1.0 - 4.3 10*3/uL [facility] Lymphocytes/100 WBC (Bld) 15.9 % 15.0 - 45.0 % [facility] MCH (RBC) [Entitic mass] 27.2 pg 26.0 - 34.0 pg [facility] MCHC (RBC) [Mass/Vol] 32.3 % 30.5 - 36.0 % [facility] MCV (RBC) [Entitic vol] 84.3 fL 77.0 - 99.0 fL [facility] Monocytes (Bld) [#/Vol] 0.8 10*3/uL 0.0 - 0.9 10*3/uL [facility] Monocytes/100 WBC (Bld) 8.2 % 5.0 - 13.0 % [facility] Neutrophils (Bld) [#/Vol] 7.1 10*3/uL 1.8 - 7.5 10*3/uL [facility] Neutrophils/100 WBC (Bld) 72.6 % 38.0 - 82.0 % [facility] Nucleated RBC/100 WBC (Bld) [Ratio] 0 % [facility] Platelet mean volume (Bld) [Entitic vol] 9.5 fL 9.0 - 12.7 fL [facility] Platelets (Bld) [#/Vol] 419 10*3/uL 140 - 440 10*3/uL [facility] RBC (Bld) [#/Vol] 3.56 10*6/uL Male: 4.40-5.90; Female: 3.80-5.20 [facility] WBC (Bld) [#/Vol] 9.7 10*3/uL 3.6 - 10.7 10*3/uL [facility] CBC WITH AUTO DIFFERENTIALon 10-22-2024 Basophils (Bld) [#/Vol] 0.1 10*3/uL Normal 0.0-0.2 [facility] Comment on above: Performed By: #### L [id number] ####Curriculum Designer: KEMAR ABEBE ([id number])[facility] (SBAB)[address] [place] [address] Basophils/100 WBC (Bld) 0.5 % Normal 0.0-2.0 [facility] Comment on above: Performed By: #### L [id number] ####Curriculum Designer: KEMAR ABEBE ([id number])[facility] (SBAB)[address] [place] [address] Eosinophils (Bld) [#/Vol] 0.2 10*3/uL Normal 0.0-0.5 [facility] Comment on above: Performed By: #### L [id number] ####Curriculum Designer: KEMAR ABEBE ([id number])[facility] (SB[facility])[address] Eosinophils/100 WBC (Bld) 1.7 % Normal 0.0-6.0 [facility] Comment on above: Performed By: #### L [id number] ####Curriculum Designer: KEMAR ABEBE ([id number])[facility] (SBAB)[address] [place] [address] Erythrocyte distribution width (RBC) [Ratio] 13.5 % Normal 11.5-15.0 [facility] Comment on above: Performed By: #### L [id number] ####Curriculum Designer: KEMAR MOMINHiginioSAAD ([id number])[facility] [place] (SBHLAB)[address] Hematocrit (Bld) [Volume fraction] 30.0 % Normal Male: 40.0-52.0 ; Female: 35.0-47.0 [facility] Comment on above: Performed By: #### L [id number] ####Curriculum Designer: KEMAR MOMINHARRISON ([id number])[facility] [place] (SB[facility])[address] [place] [address] Hemoglobin (Bld) [Mass/Vol] 9.7 g/dL Low 11.7-18.0 [facility] Comment on above: Performed By: #### L [id number] ####Curriculum Designer: KEMAR MOMINHARRISON ([id number])[facility])[address] [place] [address] IMMATURE GRANS % 1.1 % Normal 0.0-2.0 [facility] Comment on above: Performed By: #### L [id number] ####Curriculum Designer: KEMAR LUDWIGSAAD ([id number])[facility] ([facility])[address] [place] [address] IMMATURE GRANS ABSOLUTE 0.1 10*3/uL High <0.1 [facility] Comment on above: Performed By: #### L [id number] ####Curriculum Designer: KEMAR LUDWIGSAAD ([id number])[facility] [place] ([facility])[address] [place] [address] Lymphocytes (Bld) [#/Vol] 1.6 10*3/uL Normal 1.0-4.3 [facility] Comment on above: Performed By: #### L [id number] ####Curriculum Designer: KEMAR LUDWIGSAAD ([id number])[facility] ([facility])[address] [place] [address] Lymphocytes/100 WBC (Bld) 15.9 % Normal 15.0-45.0 [facility] Comment on above: Performed By: #### L [id number] ####Curriculum Designer: KEMAR MOMINHiginioSAAD ([id number])[facility] [place] (SBHLAB)[address] MCH (RBC) [Entitic mass] 27.2 pg Normal 26.0-34.0 [facility] Comment on above: Performed By: #### L [id number] ####Curriculum Designer: KEMAR ANDRAE ([id number])[facility] (SBHLAB)[address] MCHC 32.3 % Normal 30.5-36.0 [facility] Comment on above: Performed By: #### L [id number] ####Curriculum Designer: KMEAR ANDRAE ([id number])[facility] [place] (SBHLAB)[address] [place] [address] MCV (RBC) [Entitic vol] 84.3 fL Normal 77.0-99.0 [facility] Comment on above: Performed By: #### L [id number] ####Curriculum Designer: KEMAR LUDWIGSAAD ([id number])[facility] (SBHLAB)[address] Monocytes (Bld) [#/Vol] 0.8 10*3/uL Normal 0.0-0.9 [facility] Comment on above: Performed By: #### L [id number] ####Curriculum Designer: KEMAR ABEBE ([id number])[facility] (SBHLAB)[address] Monocytes/100 WBC (Bld) 8.2 % Normal 5.0-13.0 [facility] Comment on above: Performed By: #### L [id number] ####Curriculum Designer: KEMAR ABEBE ([id number])[facility] (SBHLAB)[address] NEUTROPHILS ABSOLUTE 7.1 10*3/uL Normal 1.8-7.5 [facility] Comment on above: Performed By: #### L [id number] ####Curriculum Designer: KEMAR ABEBE ([id number])[facility] [place] (SBHLAB)[address] Neutrophils/100 WBC (Bld) 72.6 % Normal 38.0-82.0 [facility] Comment on above: Performed By: #### L [id number] ####Curriculum Designer: KEMAR ABEBE ([id number])[facility] [place] (SBHLAB)[address] NRBC 0.0 /100 WBCs Normal 0.0-2.0 [facility] Comment on above: Performed By: #### L [id number] ####Curriculum Designer: KEMAR ABEBE ([id number])[facility] [place] (SBHLAB)[address] Platelet mean volume (Bld) [Entitic vol] 9.5 fL Normal 9.0-12.7 [facility] Comment on above: Performed By: #### L [id number] ####Curriculum Designer: KEMAR ABEBE ([id number])[facility] [place] (SBHLAB)[address] [place] [address] [place] Platelets (Bld) [#/Vol] 419 10*3/uL Normal 140-440 [facility] Comment on above: Performed By: #### L [id number] ####Curriculum Designer: KEMAR ABEBE ([id number])[facility] [place] (SBHLAB)[address] RBC (Bld) [#/Vol] 3.56 10*6/uL Normal Male: 4.40-5.90; Female: 3.80-5.20 [facility] Comment on above: Performed By: #### L [id number] ####Curriculum Designer: KEMAR ABEBE ([id number])[facility] [place] (SBHLAB)[address] [place] [address] [place] WBC (Bld) [#/Vol] 9.7 10*3/uL Normal 3.6-10.7 [facility] Comment on above: Performed By: #### L [id number] ####Curriculum Designer: KEMAR ABEBE ([id number])[facility] (SBHLAB)[address] COMPREHENSIVE METABOLIC PANE Gigi 10-22-2024 Albumin [Mass/Vol] 2.7 g/dL Low 3.5-5.0 [facility] Comment on above: Performed By: #### L AB17, [id number] ####Curriculum Designer: KEMAR ABEBE ([id number])[facility] (SB[facility]AB)[address] ALP [Catalytic activity/Vol] 127 U/L Normal [facility] Comment on above: Performed By: #### L AB17, [id number] ####Curriculum Designer: KEMAR ABEBE ([id number])[facility] (SBHLAB)[address] ALT [Catalytic activity/Vol] 32 U/L Normal [facility] Comment on above: Performed By: #### L AB17, [id number] ####Curriculum Designer: KEMAR ABEBE ([id number])[facility] [place] (SBHLAB)[address] Anion gap [Moles/Vol] 11 mmol/L Normal 3-13 [facility] Comment on above: Performed By: #### L AB17, [id number] ####Curriculum Designer: KEMAR ABEBE ([id number])[facility] [place] (SBHLAB)[address] AST [Catalytic activity/Vol] 19 U/L Normal <34 [facility] Comment on above: Performed By: #### L AB17, [id number] ####Curriculum Designer: KEMAR ABEBE ([id number])[facility] (SBHLAB)[address] Bilirubin [Mass/Vol] 0.3 mg/dL Normal <1.2 [facility] Comment on above: Performed By: #### L AB17, EOE311 ####Curriculum Designer: KEMAR ABEBE ([id number])[facility] (SBHLAB)[address] Calcium [Mass/Vol] 8.7 mg/dL Normal 8.4-10.2 [facility] Comment on above: Performed By: #### L AB17, [id number] ####Curriculum Designer: KEMAR ABEBE ([id number])[facility] (SBHLAB)[address] Chloride [Moles/Vol] 104 mmol/L Normal 98-107 [facility] Comment on above: Performed By: #### L AB17, [id number] ####Curriculum Designer: KEMAR ABEBE ([id number])[facility] [place] (SBHLAB)[address] CO2 [Moles/Vol] 24 mmol/L Normal 22-29 [facility] Comment on above: Performed By: #### L AB17, FYW141 ####Curriculum Designer: KEMAR ABEBE ([id number])[facility] [place] (SBHLAB)[address] Creatinine [Mass/Vol] 1.05 mg/dL Normal [facility] Comment on above: Performed By: #### L AB17, [id number] ####Curriculum Designer: KEMAR ABEBE ([id number])[facility] [place] (SBHLAB)[address] [place] [address] [place] GLOMERULAR FILTRATION RATE ML/MIN/1.73 SQ M.PREDICTED 62.1 mL/min/1.73m*2 Normal >60.0 [facility] Comment on above: Result Comment: Calc ulation based on the Chronic Kidney Disease Epidemiology Collaboration (CKD-EPI) equation refit without adjustment for race Performed By: #### L AB17, [id number] ####Curriculum Designer: KEMAR ABEBE ([id number])[facility] (SBHLAB)[address] [place] [address] [place] Glucose [Mass/Vol] 148 mg/dL High 74-100 [facility] Comment on above: Performed By: #### L AB17, [id number] ####Curriculum Designer: KEMAR ABEBE ([id number])[facility] [place] (SBHLAB)[address] Potassium [Moles/Vol] 3.3 mmol/L Low 3.5-5.1 [facility] Comment on above: Result Comment: [facility] potassium values may be up to 0.5 mmol/L lower than serum values. Performed By: #### L AB17, [id number] ####Curriculum Designer: KEMAR ABEBE ([id number])[facility] [place] (SBHLAB)[address] Protein [Mass/Vol] 6.4 g/dL Normal 6.4-8.3 [facility] Comment on above: Performed By: #### L AB17, [id number] ####Curriculum Designer: KEMAR ABEBE ([id number])[facility] [place] (SBHLAB)[address] Sodium [Moles/Vol] 139 mmol/L Normal 136-145 [facility] Comment on above: Performed By: #### L AB17, [id number] ####Curriculum Designer: KEMAR ABEBE ([id number])[facility] (SBHLAB)[address] Urea nitrogen [Mass/Vol] 35 mg/dL High 9-23 [facility] Comment on above: Performed By: #### L AB17, [id number] ####Curriculum Designer: KEMAR ABEBE ([id number])[facility] [place] (SBHLAB)[address] Comprehensive metabolic 1998 panelon 10-22-2024 Albumin [Mass/Vol] 2.7 g/dL Low 3.5 - 5.0 g/dL [facility] ALP [Catalytic activity/Vol] 127 U/L [facility] ALT [Catalytic activity/Vol] 32 U/L [facility] Anion gap [Moles/Vol] 11 mmol/L 3 - 13 mmol/L [facility] AST [Catalytic activity/Vol] 19 U/L NINF - 34 U/L [facility] Bilirubin [Mass/Vol] 0.3 mg/dL NINF - 1.2 mg/dL [facility] Calcium [Mass/Vol] 8.7 mg/dL 8.4 - 10. 2 mg/dL [facility] Chloride [Moles/Vol] 104 mmol/L 98 - 10 7 mmol/L [facility] CO2 [Moles/Vol] 24 mmol/L 22 - 29 mmol/L [facility] Creatinine [Mass/Vol] 1.05 mg/dL [facility] GFR/1.73 sq M.predicted (S/P/Bld) [Vol rate/Area] 62.1 mL/min - PINF [facility] Comment on above: Calculation based on the Chronic Kidney Disease Epidemiology Collaboration (CKD-EPI) equation refit without adjustment for race Glucose [Mass/Vol] 148 mg/dL High 74 - 100 mg/dL [facility] Interpretation and review of laboratory results Abnormal [facility] Potassium [Moles/Vol] 3.3 mmol/L Low 3.5 - 5.1 mmol/L [facility] Comment on above: Plasma potassium helne ues may be up to 0.5 mmol/L lower than serum values. Protein [Mass/Vol] 6.4 g/dL 6.4 - 8.3 g/dL [facility] Sodium [Moles/Vol] 139 mmol/L 136 - 145 mmol/L [facility] Urea nitrogen [Mass/Vol] 35 mg/dL High 9 - 23 mg/dL [facility] - Chemistry and C hemistry - challengeon 10-22-2024 Glucose [Mass/Vol] 312 mg/dL High 70 - 100 mg/dL [facility] Glucose [Mass/Vol] 283 mg/dL High 70 - 100 mg/dL [facility] Glucose [Mass/Vol] 295 mg/dL High 70 - 100 mg/dL [facility] Glucose [Mass/Vol] 258 mg/dL High 70 - 100 mg/dL [facility] Glucose [Mass/Vol] 210 mg/dL High 70 - 100 mg/dL [facility] Magnesium [Mass/Vol] 2 mg/dL 1.6 - 2 .6 mg/dL [facility] Laboratory - Microbiology an d Antimicrobial susceptibilityOrdered By: Timi Ryder on 10-22-2024 Bacteria identified Aer cx Nom (Unsp spec) No growth at 72 hours [facility] MAGNESIUMon 10-22-2024 Magnesium [Mass/Vol] 2.0 mg/dL Normal 1.6-2.6 [facility] Comment on above: Result Comment: MARIE Askew COMMENTS:Higher values can be expected in females during menses. Performed By: #### L AB17, [id number] ####Curriculum Designer: KEMAR ABEBE ([id number])[facility] (SBHLAB)[address] [place] [address] Magnesium [Mass/Vol]on 10-22 Interpretation and review of laboratory results Normal [facility] Higher values can be expected in females during menses. [facility] No Panel Informationon 10-22 Interpretation and review of laboratory results Abnormal [facility] Performed by: [facility], [address] [place] [address] CLIA ID: [id number] [facility] Interpretation and review of laboratory results Abnormal [facility] Performed by: [facility], [address] [place] [address] CLIA ID: [id number] [facility] Interpretation and review of laboratory results Abnormal [facility] Performed by: [facility], [address] [place] [address] CLIA ID: [id number] [facility] Interpretation and review of laboratory results Abnormal [facility] Performed by: [facility], [address] [place] [address] CLIA ID: [id number] [facility] Progress Noteon 10-22-2024 Progress Note Normal [facility] Progress Note Normal [facility] [id number] 10-21-2024 [id number] Normal [facility] CBC W Auto Differential pane l (Bld)on 10-21-2024 Basophils (Bld) [#/Vol] 0.1 10*3/uL 0.0 - 0.2 10*3/uL [facility] Basophils/100 WBC (Bld) 0.6 % 0.0 - 2.0 % [facility] Eosinophils (Bld) [#/Vol] 0.2 10*3/uL 0.0 - 0.5 10*3/uL [facility] Eosinophils/100 WBC (Bld) 1.6 % 0.0 - 6.0 % [facility] Erythrocyte distribution width (RBC) [Ratio] 13.4 % 11.5 - 15.0 % [facility] Hematocrit (Bld) [Volume fraction] 31.6 % Male: 40.0-52.0 ; Female: 35.0-47.0 [facility] Hemoglobin (Bld) [Mass/Vol] 10.2 g/dL Low 11.7 - 18.0 g/dL [facility] Immature granulocytes (Bld) [#/Vol] 0.1 10*3/uL High NINF - 0.1 10*3/uL [facility] Immature granulocytes/100 WBC (Bld) 0.8 % 0.0 - 2.0 % [facility] Interpretation and review of laboratory results Abnormal [facility] Lymphocytes (Bld) [#/Vol] 1.8 10*3/uL 1.0 - 4.3 10*3/uL [facility] Lymphocytes/100 WBC (Bld) 15.3 % 15.0 - 45.0 % [facility] MCH (RBC) [Entitic mass] 27.3 pg 26.0 - 34.0 pg [facility] MCHC (RBC) [Mass/Vol] 32.3 % 30.5 - 36.0 % [facility] MCV (RBC) [Entitic vol] 84.7 fL 77.0 - 99.0 fL [facility] Monocytes (Bld) [#/Vol] 0.8 10*3/uL 0.0 - 0.9 10*3/uL [facility] Monocytes/100 WBC (Bld) 6.8 % 5.0 - 13.0 % [facility] Neutrophils (Bld) [#/Vol] 8.9 10*3/uL High 1.8 - 7.5 10*3/uL [facility] Neutrophils/100 WBC (Bld) 74.9 % 38.0 - 82.0 % [facility] Nucleated RBC/100 WBC (Bld) [Ratio] 0 % [facility] Platelet mean volume (Bld) [Entitic vol] 9.7 fL 9.0 - 12.7 fL [facility] Platelets (Bld) [#/Vol] 396 10*3/uL 140 - 440 10*3/uL [facility] RBC (Bld) [#/Vol] 3.73 10*6/uL Male: 4.40-5.90; Female: 3.80-5.20 [facility] WBC (Bld) [#/Vol] 11.9 10*3/uL High 3.6 - 10.7 10*3/uL [facility] CBC WITH AUTO DIFFERENTIALon 10-21-2024 Basophils (Bld) [#/Vol] 0.1 10*3/uL Normal 0.0-0.2 [facility] Comment on above: Performed By: #### L [id number] ####Curriculum Designer: KEMAR ABEBE ([id number])[facility] ([facility])[address] Basophils/100 WBC (Bld) 0.6 % Normal 0.0-2.0 [facility] Comment on above: Performed By: #### L [id number] ####Curriculum Designer: KEMAR ABEBE ([id number])[facility] (SBHLAB)[address] Eosinophils (Bld) [#/Vol] 0.2 10*3/uL Normal 0.0-0.5 [facility] Comment on above: Performed By: #### L [id number] ####Curriculum Designer: KEMAR ABEBE ([id number])[facility] [place] (SBHLAB)[address] Eosinophils/100 WBC (Bld) 1.6 % Normal 0.0-6.0 [facility] Comment on above: Performed By: #### L [id number] ####Curriculum Designer: KEMAR ABEBE ([id number])[facility] ([facility])[address] Erythrocyte distribution width (RBC) [Ratio] 13.4 % Normal 11.5-15.0 [facility] Comment on above: Performed By: #### L [id number] ####Curriculum Designer: KEMAR ABEBE ([id number])[facility] [place] (SBHLAB)[address] Hematocrit (Bld) [Volume fraction] 31.6 % Normal Male: 40.0-52.0 ; Female: 35.0-47.0 [facility] Comment on above: Performed By: #### L [id number] ####Curriculum Designer: KEMAR ANDRAE ([id number])[facility] [place] (SBHLAB)[address] [place] [address] Hemoglobin (Bld) [Mass/Vol] 10.2 g/dL Low 11.7-18.0 [facility] Comment on above: Performed By: #### L [id number] ####Curriculum Designer: KEMAR MOMINHARRISON ([id number])[facility] [place] (SBAB)[address] [place] [address] IMMATURE GRANS % 0.8 % Normal 0.0-2.0 [facility] Comment on above: Performed By: #### L [id number] ####Curriculum Designer: KEMAR ANDRAE ([id number])[facility] (SBAB)[address] IMMATURE GRANS ABSOLUTE 0.1 10*3/uL High <0.1 [facility] Comment on above: Performed By: #### L [id number] ####Curriculum Designer: KEMAR LUDWIGSAAD ([id number])[facility] (SBAB)[address] [place] [address] Lymphocytes (Bld) [#/Vol] 1.8 10*3/uL Normal 1.0-4.3 [facility] Comment on above: Performed By: #### L [id number] ####Curriculum Designer: KEMAR LUDWIGSAAD ([id number])[facility] (SBAB)[address] Lymphocytes/100 WBC (Bld) 15.3 % Normal 15.0-45.0 [facility] Comment on above: Performed By: #### L [id number] ####Curriculum Designer: KEMAR ABEBE ([id number])[place] WADEKATIA (SBHLAB)[address] MCH (RBC) [Entitic mass] 27.3 pg Normal 26.0-34.0 [facility] Comment on above: Performed By: #### L [id number] ####Curriculum Designer: KEMAR ABEBE ([id number])[facility]ITAL[facility] KASPERJermaine (SBHLAB)[address] MCHC 32.3 % Normal 30.5-36.0 [facility] Comment on above: Performed By: #### L [id number] ####Curriculum Designer: KEMAR ABEBE ([id number])[facility]ITAL[facility] KASPERJermaine (SBHLAB)[address] MCV (RBC) [Entitic vol] 84.7 fL Normal 77.0-99.0 [facility] Comment on above: Performed By: #### L [id number] ####Curriculum Designer: KEMAR ABEBE ([id number])[facility]ITALWarren WADEMARYN (SBHLAB)[address] Monocytes (Bld) [#/Vol] 0.8 10*3/uL Normal 0.0-0.9 [facility] Comment on above: Performed By: #### L [id number] ####Curriculum Designer: KEMAR ABEBE ([id number])[place] WADEKATIA (SBHLAB)[address] Monocytes/100 WBC (Bld) 6.8 % Normal 5.0-13.0 [facility] Comment on above: Performed By: #### L [id number] ####Curriculum Designer: KEMAR ABEBE ([id number])[facility]ITAL[facility]ren WADEMARYN (SBHLAB)[address] NEUTROPHILS ABSOLUTE 8.9 10*3/uL High 1.8-7.5 [facility] Comment on above: Performed By: #### L [id number] ####Curriculum Designer: KEMAR ABEBE ([id number])NATI BARBMARYN (SBHLAB)[address] Neutrophils/100 WBC (Bld) 74.9 % Normal 38.0-82.0 [facility] Comment on above: Performed By: #### L [id number] ####Curriculum Designer: KEMAR ABEBE ([id number])[facility] [place] (SBHLAB)[address] NRBC 0.0 /100 WBCs Normal 0.0-2.0 [facility] Comment on above: Performed By: #### L [id number] ####Curriculum Designer: KEMAR ABEBE ([id number])[facility] BAR[facility]N (SBHLAB)[address] Platelet mean volume (Bld) [Entitic vol] 9.7 fL Normal 9.0-12.7 [facility] Comment on above: Performed By: #### L [id number] ####Curriculum Designer: KEMAR ABEBE ([id number])[facility]ITAL[facility] [place] (SBHLAB)[address] [place] [address] Platelets (Bld) [#/Vol] 396 10*3/uL Normal 140-440 [facility] Comment on above: Performed By: #### L [id number] ####Curriculum Designer: KEMAR ABEBE ([id number])[facility]ITAL[facility] (SBHLAB)[address] RBC (Bld) [#/Vol] 3.73 10*6/uL Normal Male: 4.40-5.90; Female: 3.80-5.20 [facility] Comment on above: Performed By: #### L [id number] ####Curriculum Designer: KEMAR ABEBE ([id number])[facility]ITAL[facility] [place] (SBHLAB)[address] WBC (Bld) [#/Vol] 11.9 10*3/uL High 3.6-10.7 [facility] Comment on above: Performed By: #### L [id number] ####Curriculum Designer: KEMAR ABEBE ([id number])[facility] [place] (SBHLAB)[address] COMPREHENSIVE METABOLIC PANE Gigi 10-21-2024 Albumin [Mass/Vol] 2.7 g/dL Low 3.5-5.0 [facility] Comment on above: Performed By: #### L AB17, SDK249 ####Curriculum Designer: KEMAR ABEBE ([id number])[facility] [place] (SBHLAB)[address] ALP [Catalytic activity/Vol] 135 U/L Normal [facility] Comment on above: Performed By: #### L AB17, [id number] ####Curriculum Designer: KEMAR ABEBE ([id number])[facility] [place] (SBHLAB)[address] ALT [Catalytic activity/Vol] 42 U/L Normal [facility] Comment on above: Performed By: #### L AB17, SWI102 ####Curriculum Designer: KEMAR ABEBE ([id number])[facility] [place] (SBHLAB)[address] Anion gap [Moles/Vol] 12 mmol/L Normal 3-13 [facility] Comment on above: Performed By: #### L AB17, [id number] ####Curriculum Designer: KEMAR ABEBE ([id number])[facility] [place] (SBHLAB)[address] AST [Catalytic activity/Vol] 20 U/L Normal <34 [facility] Comment on above: Performed By: #### L AB17, SRO852 ####Curriculum Designer: KEMAR ABEBE ([id number])[facility] [place] (SBHLAB)[address] Bilirubin [Mass/Vol] 0.3 mg/dL Normal <1.2 [facility] Comment on above: Performed By: #### L AB17, IIL712 ####Curriculum Designer: KEMAR ABEBE ([id number])[facility]ITALWarren KASPERN (SBHLAB)[address] [place] [address] [place] Calcium [Mass/Vol] 8.8 mg/dL Normal 8.4-10.2 [facility] Comment on above: Performed By: #### L AB17, KWD836 ####Curriculum Designer: KEMAR ABEBE ([id number])[facility]ITALWarren WADEMARYN (SBHLAB)[address] [place] [address] [place] Chloride [Moles/Vol] 100 mmol/L Normal 98-107 [facility] Comment on above: Performed By: #### L AB17, USN533 ####Curriculum Designer: KEMAR ABEBE ([id number])[facility]ITAL[facility] KASPERN (SBHLAB)[address] CO2 [Moles/Vol] 23 mmol/L Normal 22-29 [facility] Comment on above: Performed By: #### L AB17, JTB237 ####Curriculum Designer: KEMAR ABEBE ([id number])[facility]ITALWarren WADEMARYN (SBHLAB)[address] [place] [address] [place] Creatinine [Mass/Vol] 1.35 mg/dL Normal [facility] Comment on above: Performed By: #### L AB17, CHO170 ####Curriculum Designer: KEMAR ABEBE ([id number])[facility]ITALWarren KASPERN (SBHLAB)[address] [place] [address] [place] GLOMERULAR FILTRATION RATE ML/MIN/1.73 SQ M.PREDICTED 45.9 mL/min/1.73m*2 Low >60.0 [facility] Comment on above: Result Comment: Calc ulation based on the Chronic Kidney Disease Epidemiology Collaboration (CKD-EPI) equation refit without adjustment for race Performed By: #### L AB17, ROT600 ####Curriculum Designer: KEMAR ABEBE ([id number])[facility]ITALWarren WADEMARYN (SBHLAB)[address] [place] [address] [place] Glucose [Mass/Vol] 112 mg/dL High 74-100 [facility] Comment on above: Performed By: #### L AB17, EME913 ####Curriculum Designer: KEMAR ABEBE ([id number])[facility] [place] (SBHLAB)[address] Potassium [Moles/Vol] 3.3 mmol/L Low 3.5-5.1 [facility] Comment on above: Result Comment: [facility] potassium values may be up to 0.5 mmol/L lower than serum values. Performed By: #### L AB17, [id number] ####Curriculum Designer: KEMAR ABEBE ([id number])[facility] [place] (SBHLAB)[address] Protein [Mass/Vol] 6.6 g/dL Normal 6.4-8.3 [facility] Comment on above: Performed By: #### L AB17, QLE522 ####Curriculum Designer: KEMAR ABEBE ([id number])[facility] [place] (SBHLAB)[address] Sodium [Moles/Vol] 135 mmol/L Low 136-145 [facility] Comment on above: Performed By: #### L AB17, [id number] ####Curriculum Designer: KEMAR ABEBE ([id number])[facility] [place] (SBHLAB)[address] Urea nitrogen [Mass/Vol] 48 mg/dL High 9-23 [facility] Comment on above: Performed By: #### L AB17, [id number] ####Curriculum Designer: KEMAR ABEBE ([id number])[facility] [place] (SBHLAB)[address] Comprehensive metabolic 1998 panelon 10-21-2024 Albumin [Mass/Vol] 2.7 g/dL Low 3.5 - 5.0 g/dL [facility] ALP [Catalytic activity/Vol] 135 U/L [facility] ALT [Catalytic activity/Vol] 42 U/L [facility] Anion gap [Moles/Vol] 12 mmol/L 3 - 13 mmol/L [facility] AST [Catalytic activity/Vol] 20 U/L NINF - 34 U/L [facility] Bilirubin [Mass/Vol] 0.3 mg/dL NINF - 1.2 mg/dL [facility] Calcium [Mass/Vol] 8.8 mg/dL 8.4 - 10. 2 mg/dL [facility] Chloride [Moles/Vol] 100 mmol/L 98 - 10 7 mmol/L [facility] CO2 [Moles/Vol] 23 mmol/L 22 - 29 mmol/L [facility] Creatinine [Mass/Vol] 1.35 mg/dL [facility] GFR/1.73 sq M.predicted (S/P/Bld) [Vol rate/Area] 45.9 mL/min Low - PINF [facility] Comment on above: Calculation based on the Chronic Kidney Disease Epidemiology Collaboration (CKD-EPI) equation refit without adjustment for race Glucose [Mass/Vol] 112 mg/dL High 74 - 100 mg/dL [facility] Interpretation and review of laboratory results Abnormal [facility] Potassium [Moles/Vol] 3.3 mmol/L Low 3.5 - 5.1 mmol/L [facility] Comment on above: Plasma potassium helen ues may be up to 0.5 mmol/L lower than serum values. Protein [Mass/Vol] 6.6 g/dL 6.4 - 8.3 g/dL [facility] Sodium [Moles/Vol] 135 mmol/L Low 136 - 145 mmol/L [facility] Urea nitrogen [Mass/Vol] 48 mg/dL High 9 - 23 mg/dL [facility] Laboratory - Chemistry and C hemistry - challengeon 10-21-2024 Glucose [Mass/Vol] 151 mg/dL High 70 - 100 mg/dL [facility] Glucose [Mass/Vol] 141 mg/dL High 70 - 100 mg/dL [facility] Glucose [Mass/Vol] 161 mg/dL High 70 - 100 mg/dL [facility] Glucose [Mass/Vol] 182 mg/dL High 70 - 100 mg/dL [facility] Glucose [Mass/Vol] 185 mg/dL High 70 - 100 mg/dL [facility] Magnesium [Mass/Vol] 2 mg/dL 1.6 - 2 .6 mg/dL [facility] MAGNESIUMon 10-21-2024 Magnesium [Mass/Vol] 2.0 mg/dL Normal 1.6-2.6 [facility] Comment on above: Result Comment: MARIE Askew COMMENTS:Higher values can be expected in females during menses. Performed By: #### L AB17, [id number] ####Curriculum Designer: KEMAR ABEBE ([id number])[facility]ITALWarren WADEKATIA (SBHLAB)[address] [place] [address] [place] Magnesium [Mass/Vol]on 10-21 Interpretation and review of laboratory results Normal [facility] Higher values can be expected in females during menses. [facility] No Panel Informationon 10-21 Interpretation and review of laboratory results Abnormal [facility] Performed by: [facility], [address] [place] [address] CLIA ID: [id number] [facility] Interpretation and review of laboratory results Abnormal [facility] Performed by: [facility], [address] [place] [address] CLIA ID: [id number] [facility] Interpretation and review of laboratory results Abnormal [facility] Performed by: [facility], [address] [place] [address] CLIA ID: [id number] [facility] Interpretation and review of laboratory results Abnormal [facility] Performed by: [facility], [address] [place] [address] CLIA ID: [id number] [facility] Interpretation and review of laboratory results Abnormal [facility] Performed by: [facility], [address] [place] [address] CLIA ID: [id number] [facility] Progress Noteon 10-21-2024 Progress Note Normal [facility] Progress Note Normal [facility] [id number] 10-20-2024 [id number] Normal [facility] [id number] Sent updated notes t o return back to [facility] per [facility] request. Await review and response regarding ability to accept. TCC notified. Normal [facility] Bacteria identified Cx Nom ( U)Ordered By: Sagrario Clark on 10-20-2024 Interpretation and review of laboratory results Normal [facility] C-REACTIVE PROTEINon 024 CRP [Mass/Vol] 261.6 mg/L High <5.0 [facility] System [facility] Comment on above: Performed By: #### L [id number], LAB17, [id number] ####Curriculum Designer: KEMAR ABEBE ([id number])[facility] (SBAB)[address] [place] [address] CBC W Auto Differential pane l (Bld)on 10-20-2024 Basophils (Bld) [#/Vol] 0 10*3/uL 0.0 - 0.2 10*3/uL [facility] Basophils/100 WBC (Bld) 0.1 % 0.0 - 2.0 % [facility] Eosinophils (Bld) [#/Vol] 0 10*3/uL 0.0 - 0.5 10*3/uL [facility] Eosinophils/100 WBC (Bld) 0.2 % 0.0 - 6.0 % [facility] Erythrocyte distribution width (RBC) [Ratio] 13.9 % 11.5 - 15.0 % [facility] Hematocrit (Bld) [Volume fraction] 33 % Male: 40.0-52.0 ; Female: 35.0-47.0 [facility] Hemoglobin (Bld) [Mass/Vol] 10.5 g/dL Low 11.7 - 18.0 g/dL [facility] [employer] Immature granulocytes (Bld) [#/Vol] 0.2 10*3/uL High NINF - 0.1 10*3/uL [facility] [employer] Immature granulocytes/100 WBC (Bld) 1.3 % 0.0 - 2.0 % [facility] Interpretation and review of laboratory results Abnormal [facility] Lymphocytes (Bld) [#/Vol] 1.1 10*3/uL 1.0 - 4.3 10*3/uL [facility] Lymphocytes/100 WBC (Bld) 8 % Low 15.0 - 45.0 % [facility] MCH (RBC) [Entitic mass] 27.3 pg 26.0 - 34.0 pg [facility] MCHC (RBC) [Mass/Vol] 31.8 % 30.5 - 36.0 % [facility] MCV (RBC) [Entitic vol] 85.7 fL 77.0 - 99.0 fL [facility] Monocytes (Bld) [#/Vol] 0.8 10*3/uL 0.0 - 0.9 10*3/uL [facility] Monocytes/100 WBC (Bld) 5.7 % 5.0 - 13.0 % [facility] Neutrophils (Bld) [#/Vol] 11.4 10*3/uL High 1.8 - 7.5 10*3/uL [facility] Neutrophils/100 WBC (Bld) 84.7 % High 38.0 - 82.0 % [facility] Nucleated RBC/100 WBC (Bld) [Ratio] 0 % [facility] Platelet mean volume (Bld) [Entitic vol] 9.9 fL 9.0 - 12.7 fL [facility] Platelets (Bld) [#/Vol] 353 10*3/uL 140 - 440 10*3/uL [facility] RBC (Bld) [#/Vol] 3.85 10*6/uL Male: 4.40-5.90; Female: 3.80-5.20 [facility] WBC (Bld) [#/Vol] 13.4 10*3/uL High 3.6 - 10.7 10*3/uL [facility] CBC WITH AUTO DIFFERENTIALon 10-20-2024 Basophils (Bld) [#/Vol] 0.0 10*3/uL Normal 0.0-0.2 [facility] Comment on above: Performed By: #### L [id number] ####Curriculum Designer: KEMAR ABEBE ([id number])[facility] ([facility])[address] [place] [address] Basophils/100 WBC (Bld) 0.1 % Normal 0.0-2.0 [facility] Comment on above: Performed By: #### L [id number] ####Curriculum Designer: KEMAR ABEBE ([id number])[facility] (SBHLAB)[address] [place] [address] Eosinophils (Bld) [#/Vol] 0.0 10*3/uL Normal 0.0-0.5 [facility] Comment on above: Performed By: #### L [id number] ####Curriculum Designer: KEMAR ABEBE ([id number])[facility] ([facility])[address] [place] [address] Eosinophils/100 WBC (Bld) 0.2 % Normal 0.0-6.0 [facility] Comment on above: Performed By: #### L [id number] ####Curriculum Designer: KEMAR ABEBE ([id number])[facility] ([facility])[address] Erythrocyte distribution width (RBC) [Ratio] 13.9 % Normal 11.5-15.0 [facility] Comment on above: Performed By: #### L [id number] ####Curriculum Designer: KEMAR LUDWIGSAAD ([id number])[facility] ([facility])[address] [place] [address] Hematocrit (Bld) [Volume fraction] 33.0 % Normal Male: 40.0-52.0 ; Female: 35.0-47.0 [facility] Comment on above: Performed By: #### L [id number] ####Curriculum Designer: KEMAR ABEBE ([id number])[facility] ([facility])[address] [place] [address] Hemoglobin (Bld) [Mass/Vol] 10.5 g/dL Low 11.7-18.0 [facility] Comment on above: Performed By: #### L [id number] ####Curriculum Designer: KEMAR ABEBE ([id number])[facility] ([facility])[address] [place] [address] IMMATURE GRANS % 1.3 % Normal 0.0-2.0 [facility] Comment on above: Performed By: #### L [id number] ####Curriculum Designer: KEMAR ABEBE ([id number])[facility] ([facility])[address] [place] [address] IMMATURE GRANS ABSOLUTE 0.2 10*3/uL High <0.1 [facility] Comment on above: Performed By: #### L [id number] ####Curriculum Designer: KEMAR MOMINHiginioSAAD ([id number])[facility]ITALWarren WADEMIMBRES MEMORIAL HOSPITALJermaine (SBHLAB)[address] Lymphocytes (Bld) [#/Vol] 1.1 10*3/uL Normal 1.0-4.3 [facility] Comment on above: Performed By: #### L [id number] ####Curriculum Designer: KEMAR ANDRAE ([id number])[facility] (SBHLAB)[address] Lymphocytes/100 WBC (Bld) 8.0 % Low 15.0-45.0 [facility] Comment on above: Performed By: #### L [id number] ####Curriculum Designer: KEMAR ANDRAE ([id number])[facility]ITALWar[facility] [place] (SBHLAB)[address] [place] [address] MCH (RBC) [Entitic mass] 27.3 pg Normal 26.0-34.0 [facility] Comment on above: Performed By: #### L [id number] ####Curriculum Designer: KEMAR MOMINHiginioSAAD ([id number])[facility] (SBHLAB)[address] [place] [address] MCHC 31.8 % Normal 30.5-36.0 [facility] Comment on above: Performed By: #### L [id number] ####Curriculum Designer: KEMAR ABEBE ([id number])[facility] (SBHLAB)[address] [place] [address] MCV (RBC) [Entitic vol] 85.7 fL Normal 77.0-99.0 [facility] Comment on above: Performed By: #### L [id number] ####Curriculum Designer: KEMAR ABEBE ([id number])[facility] (SBHLAB)[address] [place] [address] Monocytes (Bld) [#/Vol] 0.8 10*3/uL Normal 0.0-0.9 [facility] Comment on above: Performed By: #### L [id number] ####Curriculum Designer: KEMAR LUDWIGSAAD ([id number])[facility] (SBHLAB)[address] Monocytes/100 WBC (Bld) 5.7 % Normal 5.0-13.0 [facility] Comment on above: Performed By: #### L [id number] ####Curriculum Designer: KEMAR BANUELOSCER ([id number])[facility] [place] (SBHLAB)[address] NEUTROPHILS ABSOLUTE 11.4 10*3/uL High 1.8-7.5 [facility] Comment on above: Performed By: #### L [id number] ####Curriculum Designer: KEMAR LUDWIGSAAD ([id number])[facility] (SBHLAB)[address] Neutrophils/100 WBC (Bld) 84.7 % High 38.0-82.0 [facility] Comment on above: Performed By: #### L [id number] ####Curriculum Designer: KEMAR LUDWIGSAAD ([id number])[facility] [place] (SBHLAB)[address] NRBC 0.0 /100 WBCs Normal 0.0-2.0 [facility] Comment on above: Performed By: #### L US2431 ####Curriculum Designer: KEMAR ABEBE ([id number])[facility] [place] (SBHLAB)[address] Platelet mean volume (Bld) [Entitic vol] 9.9 fL Normal 9.0-12.7 [facility] Comment on above: Performed By: #### L US5524 ####Curriculum Designer: KEMAR ABEBE ([id number])[facility] [place] (SBHLAB)[address] Platelets (Bld) [#/Vol] 353 10*3/uL Normal 140-440 [facility] Comment on above: Performed By: #### L [id number] ####Curriculum Designer: KEMAR ABEBE ([id number])[facility]ITALWarren [place] (SBHLAB)[address] RBC (Bld) [#/Vol] 3.85 10*6/uL Normal Male: 4.40-5.90; Female: 3.80-5.20 [facility] Comment on above: Performed By: #### L [id number] ####Curriculum Designer: KEMAR ABEBE ([id number])[facility]A [facility]IMBR[facility]ITALN (SBHLAB)[address] WBC (Bld) [#/Vol] 13.4 10*3/uL High 3.6-10.7 [facility] Comment on above: Performed By: #### L [id number] ####Curriculum Designer: KEMAR ABEBE ([id number])[facility]N (SBHLAB)[address] COMPREHENSIVE METABOLIC PANE Gigi 10-20-2024 Albumin [Mass/Vol] 2.8 g/dL Low 3.5-5.0 [facility] Comment on above: Performed By: #### Elijah [id number], LAB17, [id number] ####Curriculum Designer: KEMAR ABEBE ([id number])[facility]ITALWarren [facility]EMIMBRES MEMORIAL HOSPITALN (SBHLAB)[address] ALP [Catalytic activity/Vol] 155 U/L Normal [facility] Comment on above: Performed By: #### L [id number], LAB17, [id number] ####Curriculum Designer: KEMAR ABEBE ([id number])[facility]ITALWarren [facility]BMIMBR[facility]ITALN (SBHLAB)[address] ALT [Catalytic activity/Vol] 53 U/L Normal [facility] Comment on above: Performed By: #### L [id number], LAB17, [id number] ####Curriculum Designer: KEMAR ABEBE ([id number])[facility] (SBHLAB)[address] Anion gap [Moles/Vol] 14 mmol/L High 3-13 [facility] Comment on above: Performed By: #### Elijah RODRIGUEZ, LAB17, [id number] ####Curriculum Designer: KEMAR ABEBE ([id number])[facility] [place] (SBHLAB)[address] AST [Catalytic activity/Vol] 20 U/L Normal <34 [facility] Comment on above: Performed By: #### Elijah RODRIGUEZ, LAB17, [id number] ####Curriculum Designer: KEMAR ABEBE ([id number])[facility] [place] ([facility])[address] Bilirubin [Mass/Vol] 0.5 mg/dL Normal <1.2 [facility] Comment on above: Performed By: #### Elijah RODRIGUEZ, LAB17, [id number] ####Curriculum Designer: KEMAR ABEBE ([id number])[facility] [place] ([facility])[address] Calcium [Mass/Vol] 9.0 mg/dL Normal 8.4-10.2 [facility] Comment on above: Performed By: #### Elijah RODRIGUEZ, LAB17, [id number] ####Curriculum Designer: KEMAR ABEBE ([id number])[facility] [place] (SBHLAB)[address] Chloride [Moles/Vol] 98 mmol/L Normal 98-107 [facility] Comment on above: Performed By: #### Elijah RODRIGUEZ, LAB17, [id number] ####Curriculum Designer: KEMAR ABEBE ([id number])[facility] [place] (SBHLAB)[address] [place] [address] [place] CO2 [Moles/Vol] 21 mmol/L Low 22-29 [facility] Comment on above: Performed By: #### Elijah [address], LAB17, [id number] ####Curriculum Designer: KEMAR ABEBE ([id number])[facility] [place] (SBHLAB)[address] [place] [address] [place] Creatinine [Mass/Vol] 1.50 mg/dL Normal [facility] Comment on above: Performed By: #### Elijah [id number], LAB17, [id number] ####Curriculum Designer: KEMAR ABEBE ([id number])[facility]ITALWarren [facility]PITALJermaine (SBHLAB)[address] GLOMERULAR FILTRATION RATE ML/MIN/1.73 SQ M.PREDICTED 40.5 mL/min/1.73m*2 Low >60.0 [facility] Comment on above: Result Comment: Calc ulation based on the Chronic Kidney Disease Epidemiology Collaboration (CKD-EPI) equation refit without adjustment for race Performed By: #### Elijah RODRIGUEZ, LAB17, [id number] ####Curriculum Designer: KEMAR ABEBE ([id number])[facility]ITAL[facility] [place] (SBAB)[address] [place] [address] Glucose [Mass/Vol] 461 mg/dL Critically high 74-100 [facility] Comment on above: Performed By: #### Elijah RODRIGUEZ, LAB17, [id number] ####Curriculum Designer: KEMAR ABEBE ([id number])[facility] ([facility])[address] Potassium [Moles/Vol] 3.6 mmol/L Normal 3.5-5.1 [facility] Comment on above: Result Comment: [facility] potassium values may be up to 0.5 mmol/L lower than serum values. Performed By: #### Elijah RODRIGUEZ, LAB17, [id number] ####Curriculum Designer: KEMAR ABEBE ([id number])[facility]ITAL[facility] (SBHLAB)[address] Protein [Mass/Vol] 6.8 g/dL Normal 6.4-8.3 [facility] Comment on above: Performed By: #### Elijah [id number], LAB17, [id number] ####Curriculum Designer: KEMAR ABEBE ([id number])[facility] (SBHLAB)[address] [place] [address] [place] Sodium [Moles/Vol] 133 mmol/L Low 136-145 [facility] Comment on above: Performed By: #### L [id number], LAB17, [id number] ####Curriculum Designer: KEMAR BAUNELOSCER ([id number])[facility] (SBHLAB)[address] Urea nitrogen [Mass/Vol] 48 mg/dL High 9-23 [facility] Comment on above: Performed By: #### L [id number], LAB17, [id number] ####Curriculum Designer: KEMAR LUDWIGSAAD ([id number])[facility] SHERIMIMBRES MEMORIAL HOSPITALJermaine (SBHLAB)[address] CRP [Mass/Vol]on 10-20-2024 Interpretation and review of laboratory results Abnormal [facility] Comprehensive metabolic 1998 panelon 10-20-2024 Albumin [Mass/Vol] 2.8 g/dL Low 3.5 - 5.0 g/dL [facility] ALP [Catalytic activity/Vol] 155 U/L [facility] ALT [Catalytic activity/Vol] 53 U/L [facility] Anion gap [Moles/Vol] 14 mmol/L High 3 - 13 mmol/L [facility] AST [Catalytic activity/Vol] 20 U/L [facility] 34 U/L [facility] Bilirubin [Mass/Vol] 0.5 mg/dL NINF - 1.2 mg/dL [facility] Calcium [Mass/Vol] 9 mg/dL 8.4 - 10. 2 mg/dL [facility] Chloride [Moles/Vol] 98 mmol/L 98 - 10 7 mmol/L [facility] CO2 [Moles/Vol] 21 mmol/L Low 22 - 29 mmol/L [facility] Creatinine [Mass/Vol] 1.5 mg/dL [facility] GFR/1.73 sq M.predicted (S/P/Bld) [Vol rate/Area] 40.5 mL/min Low - PINF [facility] Comment on above: Calculation based on the Chronic Kidney Disease Epidemiology Collaboration (CKD-EPI) equation refit without adjustment for race Glucose [Mass/Vol] 461 mg/dL Critically high 74 - 1 00 mg/dL [facility] Interpretation and review of laboratory results Abnormal [facility] Potassium [Moles/Vol] 3.6 mmol/L 3.5 - 5.1 mmol/L [facility] Comment on above: Plasma potassium helen ues may be up to 0.5 mmol/L lower than serum values. Protein [Mass/Vol] 6.8 g/dL 6.4 - 8.3 g/dL [facility] Sodium [Moles/Vol] 133 mmol/L Low 136 - 145 mmol/L [facility] Urea nitrogen [Mass/Vol] 48 mg/dL High 9 - 23 mg/dL [facility] Consulton 10-20-2024 Consult Normal [facility] IRON AND TIBCon 10-20-2024 IRON BINDING CAPACITY 187 ug/dL Low 250-450 [facility] Comment on above: Performed By: #### L [id number] ####Curriculum Designer: EKMAR ABEBE ([id number])[facility] (SBAB)[address] IRON SATURATION 25.7 % Normal 20.0-50.0 [facility] Comment on above: Performed By: #### L AB829 ####Curriculum Designer: KEMAR ABEBE ([id number])[facility] (SBHLAB)[address] IRON, TOTAL 48 ug/dL Normal [facility] Comment on above: Performed By: #### L [id number] ####Curriculum Designer: KEMAR ABEBE ([id number])[facility] (SBHLAB)[address] [place] [address] Iron and Iron binding capaci ty panelon 10-20-2024 Interpretation and review of laboratory results Abnormal [facility] Iron [Mass/Vol] 48 ug/dL [facility] Iron binding capacity [Mass/Vol] 187 ug/dL Low 250 - 450 ug/dL [facility] Iron saturation [Mass fraction] 25.7 % 20.0 - 50.0 % [facility] Laboratory - Chemistry and C hemistry - challengeon 10-20-2024 Glucose [Mass/Vol] 260 mg/dL High 70 - 100 mg/dL [facility] Glucose [Mass/Vol] 373 mg/dL High 70 - 100 mg/dL [facility] Glucose [Mass/Vol] 445 mg/dL High 70 - 100 mg/dL [facility] Glucose [Mass/Vol] 445 mg/dL High 70 - 100 mg/dL [facility] Procalcitonin [Mass/Vol] 2 ng/mL High NINF - 0.07 ng/mL [facility] CRP [Mass/Vol] 261.6 mg/L High [facility] - 5.[facility] mg/L [facility] Laboratory - Microbiology an d Antimicrobial susceptibilityOrdered By: Sagrario Clark on 10-20-2024 Bacteria identified Cx Nom (U) Insignificant growth based on current clinical guidelines [facility] No Panel Informationon 10-20 Interpretation and review of laboratory results Abnormal [facility] Performed by: [facility], [address] [facility] [address] CLIA ID: [id number] [facility] Interpretation and review of laboratory results Abnormal [facility] Performed by: [facility], [address] [facility] [address] CLIA ID: [id number] [facility] Interpretation and review of laboratory results Abnormal [facility] Performed by: [facility], [address] [facility], [facility] [address] CLIA ID: [id number] [facility] Interpretation and review of laboratory results Abnormal [facility] Performed by: [facility], [address] [facility], [facility] [address] CLIA ID: [id number] [facility] Nursing Noteon 10-20-2024 Nursing Note Report called to [address] [place] [address] for transfer. Normal [facility] Nursing Note Notified Lisa guerrero APRN and Dr. Thomas regarding patients BS. New orders placed. Normal [facility] PROCALCITONIN TESTon 024 PROCALCITONIN 2.00 ng/mL High <0.07 [facility] Comment on above: Result Comment: ORDE R COMMENTS:PCT <0.50 = Low risk of severe sepsis and/or septic shock.PCT >2.00 = High risk of severe sepsis and/or septic shock. Performed By: #### L [id number], LAB17, [id number] ####Curriculum Designer: KEMAR ABEBE ([id number])[facility] ([facility])[address] [place] [address] Procalcitonin [Mass/Vol]on 12-21-2023 Interpretation and review of laboratory results Abnormal [facility] PCT <0.50 = Low risk of severe sepsis and/or septic shock. PCT >2.00 = High risk of severe sepsis and/or septic shock. [facility] Progress Noteon 10-20-2024 Progress Note Normal [facility] Progress Note Normal [facility] Progress Note Normal [facility] Progress Note Normal [facility] Progress Note Nutrition rescreen completed. Patient is NPO/Clear liquid >3 days. Refer to Dietitian. Normal [facility] 30on 10-19-2024 30 Normal [facility] [id number] 10-19-2024 [id number] Normal [facility] 36on 10-19-2024 36 Needs to be seen for follow up with any provider, will need ECF to arrange transportation so that patient can be seen in office ans no longer available to manage over the phone Normal [facility] CBC W Auto Differential pane l (Bld)on 10-19-2024 Erythrocyte distribution width (RBC) [Ratio] 14.5 % 11.5 - 15.0 % [facility] Hematocrit (Bld) [Volume fraction] 34.4 % Male: 40.0-52.0 ; Female: 35.0-47.0 [facility] Hemoglobin (Bld) [Mass/Vol] 10.9 g/dL Low 11.7 - 18.0 g/dL [facility] MCH (RBC) [Entitic mass] 27.7 pg 26.0 - 34.0 pg [facility] MCHC (RBC) [Mass/Vol] 31.7 % 30.5 - 36.0 % [facility] MCV (RBC) [Entitic vol] 87.3 fL 77.0 - 99.0 fL [facility] Platelet mean volume (Bld) [Entitic vol] 9.6 fL 9.0 - 12.7 fL [facility] Platelets (Bld) [#/Vol] 339 10*3/uL 140 - 440 10*3/uL [facility] RBC (Bld) [#/Vol] 3.94 10*6/uL Male: 4.40-5.90; Female: 3.80-5.20 [facility] WBC (Bld) [#/Vol] 21.8 10*3/uL High 3.6 - 10.7 10*3/uL [facility] CBC WITH AUTO DIFFERENTIALon 10-19-2024 Erythrocyte distribution width (RBC) [Ratio] 14.5 % Normal 11.5-15.0 [facility] Comment on above: Performed By: #### L [id number], [id number] ####Curriculum Designer: KEMAR ABEBE ([id number])[facility] ([facility])[address] [place] [address] Hematocrit (Bld) [Volume fraction] 34.4 % Normal Male: 40.0-52.0 ; Female: 35.0-47.0 [facility] Comment on above: Performed By: #### L [id number], [id number] ####Curriculum Designer: KEMAR ABEBE ([id number])[facility] ([facility])[address] [place] [address] Hemoglobin (Bld) [Mass/Vol] 10.9 g/dL Low 11.7-18.0 [facility] Comment on above: Performed By: #### L [id number], [id number] ####Curriculum Designer: KEMAR ABEBE ([id number])[facility] ([facility])[address] [place] [address] MCH (RBC) [Entitic mass] 27.7 pg Normal 26.0-34.0 [facility] Comment on above: Performed By: #### L [id number], [id number] ####Curriculum Designer: KEMAR ABEBE ([id number])[facility] ([facility])[address] [place] [address] MCHC 31.7 % Normal 30.5-36.0 [facility] Comment on above: Performed By: #### L [id number], [id number] ####Curriculum Designer: KEMAR ABEBE ([id number])[facility] [place] (SBHLAB)[address] MCV (RBC) [Entitic vol] 87.3 fL Normal 77.0-99.0 [facility] Comment on above: Performed By: #### L [id number], [id number] ####Curriculum Designer: KEMAR ABEBE ([id number])[facility] [place] (SBHLAB)[address] Platelet mean volume (Bld) [Entitic vol] 9.6 fL Normal 9.0-12.7 [facility] Comment on above: Performed By: #### L [id number], [id number] ####Curriculum Designer: KEMAR ABEBE ([id number])[facility] [place] (SBHLAB)[address] Platelets (Bld) [#/Vol] 339 10*3/uL Normal 140-440 [facility] Comment on above: Performed By: #### L [id number], [id number] ####Curriculum Designer: KEMAR ABEBE ([id number])[facility] [place] (SBHLAB)[address] RBC (Bld) [#/Vol] 3.94 10*6/uL Normal Male: 4.40-5.90; Female: 3.80-5.20 [facility] Comment on above: Performed By: #### L [id number], [id number] ####Curriculum Designer: KEMAR ABEBE ([id number])[facility] [place] (SBHLAB)[address] [place] [address] [place] WBC (Bld) [#/Vol] 21.8 10*3/uL High 3.6-10.7 [facility] Comment on above: Performed By: #### L [id number], [id number] ####Curriculum Designer: KEMAR ABEBE ([id number])[facility] [place] (SBHLAB)[address] COMPREHENSIVE METABOLIC PANE Gigi 10-19-2024 Albumin [Mass/Vol] 2.8 g/dL Low 3.5-5.0 [facility] Comment on above: Performed By: #### L AB17 ####Curriculum Designer: KEMAR ABEBE ([id number])[facility] [place] (SBHLAB)[address] ALP [Catalytic activity/Vol] 151 U/L Normal [facility] Comment on above: Performed By: #### L AB17 ####Curriculum Designer: KEMAR ABEBE ([id number])[facility] [place] (SBHLAB)[address] ALT [Catalytic activity/Vol] 83 U/L Normal [facility] Comment on above: Performed By: #### L AB17 ####Curriculum Designer: KEMAR ABEBE ([id number])[facility] [place] (SBHLAB)[address] Anion gap [Moles/Vol] 11 mmol/L Normal 3-13 [facility] Comment on above: Performed By: #### L AB17 ####Curriculum Designer: KEMAR ABEBE ([id number])[facility] [place] (SBHLAB)[address] AST [Catalytic activity/Vol] 50 U/L High <34 [facility] Comment on above: Performed By: #### L AB17 ####Curriculum Designer: KEMAR ABEBE ([id number])[facility] [place] (SBHLAB)[address] Bilirubin [Mass/Vol] 0.8 mg/dL Normal <1.2 [facility] Comment on above: Performed By: #### L AB17 ####Curriculum Designer: KEMAR ABEBE ([id number])[facility] [place] (SBHLAB)[address] Calcium [Mass/Vol] 8.9 mg/dL Normal 8.4-10.2 [facility] Comment on above: Performed By: #### L AB17 ####Curriculum Designer: KEMAR ABEBE ([id number])[facility] [place] (SBHLAB)[address] Chloride [Moles/Vol] 102 mmol/L Normal 98-107 [facility] Comment on above: Performed By: #### L AB17 ####Curriculum Designer: KEMAR ABEBE ([id number])[facility] [place] (SBHLAB)[address] [place] [address] [place] CO2 [Moles/Vol] 22 mmol/L Normal 22-29 [facility] Comment on above: Performed By: #### L AB17 ####Curriculum Designer: KEMAR ABEBE ([id number])[facility] [place] (SBHLAB)[address] Creatinine [Mass/Vol] 1.15 mg/dL Normal [facility] Comment on above: Performed By: #### L AB17 ####Curriculum Designer: KEMAR ABEBE ([id number])[facility] (SBHLAB)[address] [place] [address] [place] GLOMERULAR FILTRATION RATE ML/MIN/1.73 SQ M.PREDICTED 55.7 mL/min/1.73m*2 Low >60.0 [facility] Comment on above: Result Comment: Calc ulation based on the Chronic Kidney Disease Epidemiology Collaboration (CKD-EPI) equation refit without adjustment for race Performed By: #### L AB17 ####Curriculum Designer: KEMAR ABEBE ([id number])[facility]ITAL[facility] [place] (SBHLAB)[address] [place] [address] [place] Glucose [Mass/Vol] 223 mg/dL High 74-100 [facility] Comment on above: Performed By: #### L AB17 ####Curriculum Designer: KEMAR ABEBE ([id number])[facility]BMIMBR[facility]ITALN (SBHLAB)[address] [place] [address] [place] Potassium [Moles/Vol] 3.6 mmol/L Normal 3.5-5.1 [facility] Comment on above: Result Comment: [facility] potassium values may be up to 0.5 mmol/L lower than serum values. Performed By: #### L AB17 ####Curriculum Designer: KEMAR ABEBE ([id number])[facility]ITAL[facility] [place] (SBHLAB)[address] Protein [Mass/Vol] 6.5 g/dL Normal 6.4-8.3 [facility] Comment on above: Performed By: #### L AB17 ####Curriculum Designer: KEMAR ABEBE ([id number])[facility] (SBHLAB)[address] [place] [address] Sodium [Moles/Vol] 135 mmol/L Low 136-145 [facility] Comment on above: Performed By: #### L AB17 ####Curriculum Designer: KEMAR ABEBE ([id number])[facility] (SBHLAB)[address] [place] [address] Urea nitrogen [Mass/Vol] 32 mg/dL High 9-23 [facility] Comment on above: Performed By: #### L AB17 ####Curriculum Designer: KEMAR ABEBE ([id number])[facility] ([facility])[address] [place] [address] CULTURE ANAEROBICon 10-19-20 24 CULTURE ANAEROBIC Normal [facility] Comment on above: Performed By: #### L AB233 ####Curriculum Designer: MARCELA LUCERO ([id number])[facility] (SACLAB)[address] [place] [address] [place] CULTURE ANAEROBIC Normal [facility] Comment on above: Order Comment: Colle cted during drain placement Performed By: #### L AB233 ####Curriculum Designer: MARCELA LUCERO ([id number])[facility] (SACLAB)[address] [id number] [place] CULTURE, AEROBIC BACTERIA WI TH GRAM STAINon 10-19-2024 CULTURE, AEROBIC BACTERIA WITH GRAM STAIN Normal [facility] Comment on above: Performed By: #### L [id number] ####Curriculum Designer: MARCELA LUCERO ([id number])[facility] ([facility])[address] [place] [address] CULTURE, AEROBIC BACTERIA WITH GRAM STAIN Normal [facility] Comment on above: Order Comment: Colle cted during drain placement Performed By: #### L [id number] ####Curriculum Designer: MARCELA LUCERO ([id number])[facility] ([facility])[address] [place] [address] Comprehensive metabolic 1998 panelon 10-19-2024 Albumin [Mass/Vol] 2.8 g/dL Low 3.5 - 5.0 g/dL [facility] ALP [Catalytic activity/Vol] 151 U/L [facility] ALT [Catalytic activity/Vol] 83 U/L [facility] Anion gap [Moles/Vol] 11 mmol/L 3 - 13 mmol/L [facility] AST [Catalytic activity/Vol] 50 U/L High NINF - 34 U/L [facility] Bilirubin [Mass/Vol] 0.8 mg/dL NINF - 1.2 mg/dL [facility] Calcium [Mass/Vol] 8.9 mg/dL 8.4 - 10. 2 mg/dL [facility] Chloride [Moles/Vol] 102 mmol/L 98 - 10 7 mmol/L [facility] CO2 [Moles/Vol] 22 mmol/L 22 - 29 mmol/L [facility] Creatinine [Mass/Vol] 1.15 mg/dL [facility] GFR/1.73 sq M.predicted (S/P/Bld) [Vol rate/Area] 55.7 mL/min Low - PINF [facility] Comment on above: Calculation based on the Chronic Kidney Disease Epidemiology Collaboration (CKD-EPI) equation refit without adjustment for race Glucose [Mass/Vol] 223 mg/dL High 74 - 100 mg/dL [facility] Interpretation and review of laboratory results Abnormal [facility] Potassium [Moles/Vol] 3.6 mmol/L 3.5 - 5.1 mmol/L [facility] Comment on above: Plasma potassium helen ues may be up to 0.5 mmol/L lower than serum values. Protein [Mass/Vol] 6.5 g/dL 6.4 - 8.3 g/dL [facility] Sodium [Moles/Vol] 135 mmol/L Low 136 - 145 mmol/L [facility] Urea nitrogen [Mass/Vol] 32 mg/dL High 9 - 23 mg/dL [facility] Consulton 10-19-2024 Consult Normal [facility] Consult Normal [facility] Consult Normal [facility] Consult Normal [facility] HEMOGLOBIN A1Con 10-19-2024 Glucose [Mass/Vol] 151 mg/dL Normal [facility] Comment on above: Result Comment: MARIE Askew COMMENTS:HbA1c values of 5.7-6.4 percent indicate an increased risk for developing diabetes mellitus. HbA1c values greater than or equal to 6.5 percent are diagnostic of diabetes mellitus. For diagnosis of diabetes in individuals without unequivocal hyperglycemia, results should be confirmed by repeat testing. Performed By: #### L AB90 ####Curriculum Designer: KEMAR ABEBE ([id number])[facility] ([facility])[address] [place] [address] HEMOGLOBIN A1C 6.9 %HbA1C High <5.7 [facility] Comment on above: Result Comment: Norm al less than 5.7%Prediabetes 5.7% to 6.4%Diabetes 6.5% or higher--HgbA1C levels may not be accurate in patients who have renal disease, received recent blood transfusions, are anemic, or who have dyshemoglobinemia. Performed By: #### L AB90 ####Curriculum Designer: KEMAR ABEBE ([id number])[facility] ([facility])[address] [place] [address] Laboratory - Chemistry and C hemistry - challengeon 10-19-2024 Glucose [Mass/Vol] 396 mg/dL High 70 - 100 mg/dL [facility] Glucose [Mass/Vol] 374 mg/dL High 70 - 100 mg/dL [facility] Average glucose Estimated from glycated hemoglobin (Bld) [Mass/Vol] 151 mg/dL [facility] Glucose [Mass/Vol] 336 mg/dL High 70 - 100 mg/dL [facility] Glucose [Mass/Vol] 299 mg/dL High 70 - 100 mg/dL [facility] Glucose [Mass/Vol] 207 mg/dL High 70 - 100 mg/dL [facility] Laboratory - Coagulationon 1 12-20-2023 PT Coag (Bld) [Time] 14 s High 9.0 - 1 2.0 s [facility] Laboratory - Hematology and Cell countson 10-19-2024 HbA1c (Bld) [Mass fraction] 6.9 % High NINF [facility] Comment on above: Normal less than 5.7 % Prediabetes 5.7% to 6.4% Diabetes 6.5% or higher --HgbA1C levels may not be accurate in patients who have renal disease, received recent blood transfusions, are anemic, or who have dyshemoglobinemia. Lymphocytes (Bld) [#/Vol] 2.2 10*3/uL 1.0 - 4.3 10*3/uL [facility] Lymphocytes/100 WBC (Bld) 10 % Low 15 - 45 % [facility] Monocytes (Bld) [#/Vol] 0.2 10*3/uL 0.0 - 0.9 10*3/uL [facility] Monocytes/100 WBC (Bld) 1 % Low 5 - 13 % S [facility] Neutrophils (Bld) [#/Vol] 19.4 10*3/uL High 1.8 - 7.5 10*3/uL [facility] RBC morphology finding Nom (Bld) Normal [facility] Segmented neutrophils/100 WBC (Bld) 89 % High 38 - 82 % [facility] Lower GI hemoglobin spec 1 I A Ql (Stl)Ordered By: Debbie Kearns on 10-19-2024 Fecal occult blood Positive Abnormal Negative [facility] Interpretation and review of laboratory results Abnormal [facility] Methodology: Immunoassay [facility] MANUAL DIFFERENTIAL (CELLAVI DORIAN)on 10-19-2024 BAND NEUTROPHILS TOTAL PER COUNTED LEUKOCYTES BY MANUAL COUNT Normal [facility] Comment on above: Performed By: #### L [id number], [id number] ####Curriculum Designer: KEMAR ABEBE ([id number])[facility])[address] [place] [address] BASOPHILS TOTAL PER COUNTED LEUKOCYTES BY MANUAL COUNT Normal [facility] Comment on above: Performed By: #### L [id number], [id number] ####Curriculum Designer: KEMAR ABEBE ([id number])[facility] ([facility])[address] [place] [address] [place] BLASTS TOTAL PER COUNTED LEUKOCYTES BY MANUAL COUNT Normal [facility] Comment on above: Performed By: #### L [id number], [id number] ####Curriculum Designer: KEMAR ABEBE ([id number])[facility] ([facility])[address] [place] [address] [place] EOSINOPHILS TOTAL PER COUNTED LEUKOCYTES BY MANUAL COUNT Normal [facility] Comment on above: Performed By: #### L [id number], [id number] ####Curriculum Designer: KEMAR ABEBE ([id number])[facility] [place] ([facility])[address] [place] [address] [place] LYMPHOCYTES (10*3/UL) IN BLOOD-CELLAVISION 2.2 10*3/uL Normal 1.0-4.3 [facility] Comment on above: Performed By: #### L [id number], [id number] ####Curriculum Designer: KEMAR ABEBE ([id number])[facility] [place] ([facility])[address] [place] [address] [place] LYMPHOCYTES TOTAL PER COUNTED LEUKOCYTES BY MANUAL COUNT 10 Normal [facility] Comment on above: Performed By: #### L [id number], [id number] ####Curriculum Designer: KEMAR ABEBE ([id number])[facility] [place] ([facility])[address] [place] [address] [place] LYMPHOCYTES/100 LEUKOCYTES IN BLOOD-CELLAVISION 10 % Low 15-45 [facility] Comment on above: Performed By: #### L [id number], [id number] ####Curriculum Designer: KEMAR ABEBE ([id number])[facility] [place] ([facility])[address] [place] [address] [place] METAMYELOCYTES TOTAL PER COUNTED LEUKOCYTES BY MANUAL COUNT Normal [facility] Comment on above: Performed By: #### L [id number], [id number] ####Curriculum Designer: KEMAR ABEBE ([id number])[facility] [place] ([facility])[address] [place] [address] [place] MONOCYTES (10*3/UL) IN BLOOD-CELLAVISION 0.2 10*3/uL Normal 0.0-0.9 [facility] Comment on above: Performed By: #### L [id number], [id number] ####Curriculum Designer: KEMAR ABEBE ([id number])[facility] ([facility])[address] [place] [address] [place] MONOCYTES TOTAL PER COUNTED LEUKOCYTES BY MANUAL COUNT 1 Normal [facility] Comment on above: Performed By: #### L [id number], [id number] ####Curriculum Designer: KEMAR BANUELOSCER ([id number])[facility] ([facility])[address] [place] [address] [place] MONOCYTES/100 LEUKOCYTES IN BLOOD-SOY 1 % Low 5-13 [facility] Comment on above: Performed By: #### L [id number], [id number] ####Curriculum Designer: KEMAR ABEBE ([id number])[facility] ([facility])[address] [place] [address] [place] MYELOCYTES COUNTED BY MANUAL COUNT [facility] Comment on above: Performed By: #### L [id number], [id number] ####Curriculum Designer: KEMAR ABEBE ([id number])[facility] ([facility])[address] [place] [address] [place] NEUTROPHILS TOTAL PER COUNTED LEUKOCYTES BY MANUAL COUNT 89 Normal [facility] Comment on above: Performed By: #### L [id number], [id number] ####Curriculum Designer: KEMAR ABEBE ([id number])[facility] ([facility])[address] [place] [address] [place] PROMYELOCYTES TOTAL PER COUNTED LEUKOCYTES BY MANUAL COUNT [facility] Comment on above: Performed By: #### L [id number], [id number] ####Curriculum Designer: KEMAR ABEBE ([id number])[facility] ([facility])[address] [place] [address] [place] RBC MORPHOLOGY IN BLOOD Normal Normal [facility] Comment on above: Performed By: #### L [id number], [id number] ####Curriculum Designer: KEMAR ABEBE ([id number])[facility] [place] ([facility])[address] SEGMENTED NEUTROPHILS (10*3/UL) IN BLOOD-CELLAVISION 19.4 10*3/uL High 1.8-7.5 [facility] Comment on above: Performed By: #### L [id number], [id number] ####Curriculum Designer: KEMAR ABEBE ([id number])[facility] [place] ([facility])[address] SEGMENTED NEUTROPHILS/100 LEUKOCYTES-CE 89 % High 38-82 [facility] Comment on above: Performed By: #### L [id number], [id number] ####Curriculum Designer: KEMAR ABEBE ([id number])[facility] [place] ([facility])[address] [place] [address] UNCLASSIFIED CELLS TOTAL PER COUNTED LEUKOCYTES BY MANUAL COUNT [facility] Comment on above: Performed By: #### L [id number], [id number] ####Curriculum Designer: KEMAR ABEBE ([id number])[facility] [place] ([facility])[address] [place] [address] VARIANT LYMPHOCYTES TOTAL PER COUNTED LEUKOCYTES BY MANUAL COUNT [facility] Comment on above: Performed By: #### L [id number], [id number] ####Curriculum Designer: KEMAR ABEBE ([id number])[facility] [place] ([facility])[address] [place] [address] No Panel Informationon 10-19 Interpretation and review of laboratory results Abnormal [facility] Performed by: Nati Bustos, [address] [place] [address] CLIA ID: [id number] [facility] Interpretation and review of laboratory results Abnormal [facility] Performed by: Nati Bustos, [address] [place] [address] CLIA ID: [id number] [facility] Interpretation and review of laboratory results Abnormal [facility] HbA1c values of 5.7- 6.4 percent indicate an increased risk for developing diabetes mellitus. HbA1c values greater than or equal to 6.5 percent are diagnostic of diabetes mellitus. For diagnosis of diabetes in individuals without unequivocal hyperglycemia, results should be confirmed by repeat testing. [facility] Interpretation and review of laboratory results Abnormal [facility] Performed by: [facility], [address] [place] [address] CLIA ID: [id number] [facility] Interpretation and review of laboratory results Abnormal [facility] Performed by: [facility], [address] [address] CLIA ID: [id number] [facility] Atypical Lymphocytes Manual [facility] Bands Manual [facility] Basophils Manual [facility] Blasts Manual [facility] Eosinophils Manual [facility] Interpretation and review of laboratory results Abnormal [facility] Lymphocytes Manual 10 [facility] [employer] Metamyelocytes Manual [facility] Monocytes Manual 1 [facility] Myelocytes Manual [facility] Neutrophils Manual 89 [facility] Promyelocytes Manual [facility] Unclassified Cells, Manual [facility] Interpretation and review of laboratory results Abnormal [facility] Performed by: [facility], [address] [place] [address] CLIA ID: [id number] [facility] OCCULT BLOOD, STOOLon 2023 OCCULT BLOOD, STOOL FECAL OCCULT, STOOL (A) Reference Positive Negative ORDER COMMENTS: (A) Methodology: Immunoassay Normal [facility] Comment on above: Performed By: #### L [id number] ####Curriculum Designer: KEMAR ABEBE ([id number])[facility] [place] ([facility])[address] [place] [address] PROTHROMBIN TIMEon INR Coag (PPP) [Relative time] 1.3 {INR} High 0.9-1.1 [facility] Comment on above: Result Comment: Ubaldo mmended [...] Myocardial Infarction Performed By: #### L [id number] ####Curriculum Designer: KEMAR ABEBE ([id number])[facility] [place] ([facility])[address] PT Coag (PPP) [Time] 14.0 s High 9.0-12.0 [facility] Comment on above: Performed By: #### L [id number] ####Curriculum Designer: KEMAR LUDWIGSAAD ([id number])[facility] [place] ([facility])[address] PT Coag (Bld) [Time]on 10-19 INR Coag (PPP) [Relative time] 1.3 {INR} High 0.9 - 1.1 [facility] Comment on above: Recommended Anticoag ulant Therapy: [...] Interpretation and review of laboratory results Abnormal [facility] Progress Noteon 10-19-2024 Progress Note Normal [facility] Progress Note Normal [facility] US GUIDED PERCUTANEOUS PERIT HARRY OR RETROPERITONEAL FLUID COLLECTION DRAINAGEon 10-19-2024 US GUIDED PERCUTANEOUS PERITONEAL OR RETROPERITONEAL FLUID COLLECTION DRAINAGE Normal [facility] US Guidance for biopsy of Un specified body regionon 10-19-2024 Successful placement of a drainage catheter into the gallbladder using ultrasound guidance. Report Dictated on Electronically Signed By: Alfredito Baumann MD Electronically Signed Date/Time: 10/19/2024 2:22 PM [facility] [employer] Patient Name: WILL ALVARADO : 1965 [...] advanced. Subcutaneous tract was dilated. An 8 Cypriot drainage catheter advanced over the wire. The catheter was attached to a bag. A dressing was applied. [facility] RADIOLOGY SYSTEM Alfredito Baumann MD - 10/19/2024 [facility] 1965 [id number] Exam Date/Time: 10/19/2024 13:34 Procedure: US GUIDED [...] advanced. Subcutaneous tract was dilated. An 8 Cypriot drainage catheter advanced over the wire. The catheter was attached to a bag. A dressing was applied. IMPRESSION: Successful placement of a drainage catheter into the gallbladder using ultrasound guidance. Report Dictated on Electronically Signed By: Alfredito Baumann MD Electronically Signed Date/Time: 10/19/2024 2:22 PM EST [facility] Radiology Study observation (narrative) [facility] US Guidance for biopsy of Un specified body regionOrdered By: Alfredito Baumann on 10-19-2024 [facility] Work Phone: Urinalysis complete panel (U )Ordered By: Jyoti Cartwright on 10-19-2024 Amorphous Crystals, Urine Few Abnormal Negative /HPF [facility] Bacteria LM.HPF (Urine sed) [#/Area] Few Abnormal Negative /HPF [facility] Bilirubin Ql (U) Negative Negative mg/dL [facility] Clarity (U) Turbid Abnormal Clear [facility] Color (U) Yellow Lt. Yellow [facility] Epithelial cells.squamous LM.HPF (Urine sed) [#/Area] 0-2 [facility] Glucose Ql (U) Normal Normal (<70) mg/dL [facility] Granular casts LM.HPF (Urine sed) [#/Area] 3-5 Abnormal Negative /LPF [facility] Hemoglobin Ql (U) 0.2 mg/dL Abnormal Negative [facility] Hyaline casts Auto (Urine sed) [#/Area] 3-5 Abnormal Negative /LPF [facility] Interpretation and review of laboratory results Abnormal [facility] Ketones (U) [Mass/Vol] Negative Negat bernard mg/dL [facility] Leukocyte clumps LM.HPF (Urine sed) [#/Area] Rare Abnormal Negative /HPF [facility] Leukocyte esterase Test strip Ql (U) 500 Abnormal Negative Kat/uL [facility] Mucus LM.HPF (Urine sed) [#/Area] Few Negative /LPF [facility] Nitrite Ql (U) Negative Negative [facility] Non-Squamous Epithalial Cells, Urine 0-2 Abnormal Negative /HPF [facility] pH (U) 5.5 [pH] 5.0 - 8.0 pH [facility] Protein (U) [Mass/Vol] 50 mg/dL Abnormal Negative [facility] RBC LM.HPF (Urine sed) [#/Area] 11-25 Abnormal [facility] Specific gravity (U) [Rel density] High 1.005 - 1.030 [facility] Urobilinogen (U) [Mass/Vol] Normal Normal (0-1) mg/dL [facility] WBC LM.HPF (Urine sed) [#/Area] 51-100 Abnormal [facility] CBC W Auto Differential pane l (Bld)Ordered By: Silvai Bone on 10-18-2024 Erythrocyte distribution width (RBC) [Ratio] 14.5 % 11.5 - 15.0 % [facility] Hematocrit (Bld) [Volume fraction] 36.8 % Male: 40.0-52.0 ; Female: 35.0-47.0 [facility] Hemoglobin (Bld) [Mass/Vol] 11.6 g/dL Low 11.7 - 18.0 g/dL [facility] Interpretation and review of laboratory results Abnormal [facility] MCH (RBC) [Entitic mass] 27.1 pg 26.0 - 34.0 pg [facility] MCHC (RBC) [Mass/Vol] 31.5 % 30.5 - 36.0 % [facility] MCV (RBC) [Entitic vol] 86 fL 77.0 - 99.0 fL [facility] Platelet mean volume (Bld) [Entitic vol] 9.8 fL 9.0 - 12.7 fL [facility] Platelets (Bld) [#/Vol] 373 10*3/uL 140 - 440 10*3/uL [facility] RBC (Bld) [#/Vol] 4.28 10*6/uL Male: 4.40-5.90; Female: 3.80-5.20 [facility] WBC (Bld) [#/Vol] 25.9 10*3/uL High 3.6 - 10.7 10*3/uL [facility] CBC WITH AUTO DIFFERENTIALon 10-18-2024 Erythrocyte distribution width (RBC) [Ratio] 14.5 % Normal 11.5-15.0 [facility] System [facility] Comment on above: Performed By: #### L [id number], [id number] ####Curriculum Designer: KEMAR ABEBE ([id number])[facility] ([facility])[address] Hematocrit (Bld) [Volume fraction] 36.8 % Normal Male: 40.0-52.0 ; Female: 35.0-47.0 [facility] Comment on above: Performed By: #### L [id number], [id number] ####Curriculum Designer: KEMAR ABEBE ([id number])[facility] (SB[facility])[address] Hemoglobin (Bld) [Mass/Vol] 11.6 g/dL Low 11.7-18.0 [facility] Comment on above: Performed By: #### L [id number], [id number] ####Curriculum Designer: KMEAR ABEBE ([id number])[facility] ([facility])[address] MCH (RBC) [Entitic mass] 27.1 pg Normal 26.0-34.0 [facility] Comment on above: Performed By: #### L [id number], [id number] ####Curriculum Designer: KEMAR ABEBE ([id number])[facility] ([facility])[address] MCHC 31.5 % Normal 30.5-36.0 [facility] Comment on above: Performed By: #### L [id number], [id number] ####Curriculum Designer: KEMAR ABEBE ([id number])[facility] ([facility])[address] MCV (RBC) [Entitic vol] 86.0 fL Normal 77.0-99.0 [facility] Comment on above: Performed By: #### L [id number], [id number] ####Curriculum Designer: KEMAR ABEBE ([id number])[facility] (SB[facility])[address] Platelet mean volume (Bld) [Entitic vol] 9.8 fL Normal 9.0-12.7 [facility] Comment on above: Performed By: #### L [id number], [id number] ####Curriculum Designer: KEMAR ABEBE ([id number])[facility] ([facility])[address] Platelets (Bld) [#/Vol] 373 10*3/uL Normal 140-440 [facility] Comment on above: Performed By: #### L [id number], [id number] ####Curriculum Designer: KEMAR ABEBE ([id number])[facility] [place] (SB[facility]AB)[address] RBC (Bld) [#/Vol] 4.28 10*6/uL Normal Male: 4.40-5.90; Female: 3.80-5.20 [facility] Comment on above: Performed By: #### L [id number], [id number] ####Curriculum Designer: KEMAR ABEBE ([id number])[facility] (SB[facility])[address] [place] [address] WBC (Bld) [#/Vol] 25.9 10*3/uL High 3.6-10.7 [facility] Comment on above: Performed By: #### L [id number], [id number] ####Curriculum Designer: KEMAR ABEBE ([id number])[facility] [place] (SBAB)[address] [place] [address] COMPLETE URINALYSISon 2023 AMORPHOUS CRYSTALS (#/HPF) IN URINE Few Abnormal Negative [facility] Comment on above: Performed By: #### L [id number] ####Curriculum Designer: MARCELA LUCERO ([id number])[facility] ([facility])[address] [place] [address]#### [id number] ####Curriculum Designer: KEMAR ABEBE ([id number])[facility] (SBAB)[address] [place] [address] BACTERIA (#/HPF) IN URINE Few Abnormal Negative [facility] Comment on above: Performed By: #### L [id number] ####Curriculum Designer: MARCELA LUCERO ([id number])[facility] ([facility])[address] [place] [address]#### [id number] ####Curriculum Designer: KEMAR ABEBE ([id number])[facility] (SB[facility])[address] BILIRUBIN, TOTAL PRESENCE IN URINE Negative Normal Negative [facility] Comment on above: Performed By: #### L [id number] ####Curriculum Designer: MARCELA LUCERO ([id number])[facility] ([facility])[address] [place] [address]#### [id number] ####Curriculum Designer: KEMAR ABEBE ([id number])[facility] (SBAB)[address] [place] [address] Clarity (U) Turbid Abnormal Clear [facility] Comment on above: Performed By: #### L [id number] ####Curriculum Designer: MARCELA LUCERO ([id number])[facility] ([facility])[address] [place] [address]#### [id number] ####Curriculum Designer: KEMAR ABEBE ([id number])[facility] ([facility])[address] [place] [address] Color (U) Yellow Normal Lt. Yellow [facility] Comment on above: Performed By: #### L [id number] ####Curriculum Designer: MARCELA LUCERO ([id number])[facility] ([facility])[address] [place] [address]#### [id number] ####Curriculum Designer: KEMAR ABEBE ([id number])[facility] (SBHL[facility])[address] GLUCOSE (MG/DL) IN URINE Normal Normal Normal (<70) [facility] Comment on above: Performed By: #### L [id number] ####Curriculum Designer: MARCELA LUCERO ([id number])[facility] ([facility])[address] [place] [address]#### [id number] ####Curriculum Designer: KEMAR ABEBE ([id number])[facility] [place] ([facility])[address] [place] [address] GRANULAR CASTS (#/LPF) IN URINE 3-5 Abnormal Negative [facility] Comment on above: Performed By: #### L [id number] ####Curriculum Designer: MARCELA LUCERO ([id number])[facility] ([facility])[address] [place] [address]#### [id number] ####Curriculum Designer: KEMAR ABEBE ([id number])[facility] (SB[facility])[address] [place] [address] HEMOGLOBIN PRESENCE IN URINE 0.2 mg/dL Abnormal Negative [facility] Comment on above: Performed By: #### L [id number] ####Curriculum Designer: MARCELA LUCERO ([id number])[facility] ([facility])[address] [place] [address]#### [id number] ####Curriculum Designer: KEMAR ABEBE ([id number])[facility] ([facility])[address] [place] [address] HYALINE CASTS (#/LPF) IN URINE SEDIMENT BY MICROSCOPY 3-5 Abnormal Negative [facility] Comment on above: Performed By: #### L [id number] ####Curriculum Designer: MARCELA LUCERO ([id number])[facility] ([facility])[address] [place] [address]#### [id number] ####Curriculum Designer: KEMAR ABEBE ([id number])[facility] [place] (SB[facility])[address] [place] [address] Ketones Ql (U) Negative Normal Negative [facility] Comment on above: Performed By: #### L [id number] ####Curriculum Designer: MARCELA LUCERO ([id number])[facility] ([facility])[address] [place] [address]#### [id number] ####Curriculum Designer: KEMAR ABEBE ([id number])[facility] ([facility])[address] LEUKOCYTE ESTERASE PRESENCE IN URINE BY TEST STRIP 500 Kat/uL Abnormal Negative [facility] Comment on above: Performed By: #### L [id number] ####Curriculum Designer: MARCELA LUCERO ([id number])[facility] ([facility])[address] [place] [address]#### [id number] ####Curriculum Designer: KEMAR ABEBE ([id number])[facility] [place] ([facility])[address] MUCUS (#/LPF) IN URINE SEDIMENT Few Normal Negative [facility] Comment on above: Performed By: #### L [id number] ####Curriculum Designer: MARCELA LUCERO ([id number])[facility] ([facility])[address] [place] [address]#### [id number] ####Curriculum Designer: KEMAR ABEBE ([id number])[facility] (SBHLAB)[address] [place] [address] NITRITE PRESENCE IN URINE Negative Normal Negative [facility] Comment on above: Performed By: #### L [id number] ####Curriculum Designer: MARCELA LUCERO ([id number])[facility] ([facility])[address] [place] [address]#### [id number] ####Curriculum Designer: KEMAR ABEBE ([id number])[facility] (SBHL[facility])[address] [place] [address] NON-SQUAMOUS EPITHELIAL (#/HPF) IN URINE 0-2 Abnormal Negative [facility] Comment on above: Performed By: #### L [id number] ####Curriculum Designer: MARCELA LUCERO ([id number])[facility] ([facility])[address] [place] [address]#### [id number] ####Curriculum Designer: KEMAR ABEBE ([id number])[facility] (SBHLAB)[address] pH (U) 5.5 [pH] Normal 5.0-8.0 [facility] Comment on above: Performed By: #### L [id number] ####Curriculum Designer: MARCELA LUCERO ([id number])[facility] ([facility])[address] [place] [address]#### [id number] ####Curriculum Designer: KEMAR ABEBE ([id number])[facility] (SB[facility])[address] [place] [address] Protein (U) [Mass/Vol] 50 mg/dL Abnormal Negative [facility] Comment on above: Performed By: #### L [id number] ####Curriculum Designer: MARCELA LUCERO ([id number])[facility] ([facility])52 [place] [address]#### [id number] ####Curriculum Designer: KEMAR ABEBE ([id number])[facility] (SBHLAB)[address] [place] [address] RBC (#/HPF) IN URINE SEDIMENT 11-25 Abnormal 0-2 [facility] Comment on above: Performed By: #### L [id number] ####Curriculum Designer: MARCELA LUCERO ([id number])[facility] (SACLAB)[address] [place] [address]#### [id number] ####Curriculum Designer: KEMAR ABEBE ([id number])[facility] (SBHLAB)[address] [place] [address] Specific gravity (U) [Rel density] >1.030 High 1.005-1.030 [facility] Comment on above: Performed By: #### L [id number] ####Curriculum Designer: MARCELA LUCERO ([id number])[facility] (SACLAB)[address] [place] [address]#### [id number] ####Curriculum Designer: KEMAR ABEBE ([id number])[facility] (SBHLAB)[address] [place] [address] SQUAMOUS EPITHELIAL CELLS (#/HPF) IN URINE SEDIMENT 0-2 Normal 3-5 [facility] Comment on above: Performed By: #### L [id number] ####Curriculum Designer: MARCELA LUCERO ([id number])[facility] (SACLAB)[address] [place] [address]#### [id number] ####Curriculum Designer: KEMAR ABEBE ([id number])[facility] (SBHLAB)[address] [place] [address] UROBILINOGEN (MG/DL) IN URINE Normal Normal Normal (0-1) [facility] Comment on above: Performed By: #### L [id number] ####Curriculum Designer: MARCELA LUCERO ([id number])[facility] (SACLAB)[address] [place] [address]#### [id number] ####Curriculum Designer: KEMAR ABEBE ([id number])[facility] (SBHLAB)[address] [place] [address] WBC (LEUKOCYTE) (#/HPF) IN URINE SEDIMENT 51-100 Abnormal 0-5 [facility] Comment on above: Performed By: #### L [id number] ####Curriculum Designer: MARCELA LUCERO ([id number])[facility] (SACLAB)[address] [place] [address]#### [id number] ####Curriculum Designer: KEMAR ABEBE ([id number])[facility] (SBHLAB)[address] [place] [address] WBC (LEUKOCYTE) CLUMPS (#/HPF) IN URINE SEDIMENT Rare Abnormal Negative [facility] Comment on above: Performed By: #### L [id number] ####Curriculum Designer: MARCELA LUCERO ([id number])[facility] (SACLAB)[address] [place] [address]#### [id number] ####Curriculum Designer: KEMAR ABEBE ([id number])[facility] (SB[facility])[address] [place] [address] COMPREHENSIVE METABOLIC PANE Gigi 10-18-2024 Albumin [Mass/Vol] 3.0 g/dL Low 3.5-5.0 [facility] Comment on above: Performed By: #### Elijah MENDOZA, LAB99, [id number] ####Curriculum Designer: KEMAR ABEBE ([id number])[facility] (SBHLAB)[address] ALP [Catalytic activity/Vol] 133 U/L Normal [facility] Comment on above: Performed By: #### Elijah AB17, LAB99, [id number] ####Curriculum Designer: KEMAR ABEBE ([id number])[facility] [place] ([facility])[address] ALT [Catalytic activity/Vol] 67 U/L Normal [facility] Comment on above: Performed By: #### Elijah MENDOZA, LAB99, [id number] ####Curriculum Designer: KEMAR ABEBE ([id number])[facility] [place] (SB[facility])[address] Anion gap [Moles/Vol] 13 mmol/L Normal 3-13 [facility] Comment on above: Performed By: #### Elijah MENDOZA, LAB99, [id number] ####Curriculum Designer: KEMAR ABEBE ([id number])[facility] [place] (SB[facility])[address] AST [Catalytic activity/Vol] 50 U/L High <34 [facility] Comment on above: Performed By: #### Elijah MENDOZA, LAB99, [id number] ####Curriculum Designer: KEMAR ABEBE ([id number])[facility] [place] ([facility])[address] Bilirubin [Mass/Vol] 0.7 mg/dL Normal <1.2 [facility] [place] [facility] Comment on above: Performed By: #### Elijah ABOsmin, LAB99, [id number] ####Curriculum Designer: KEMAR ABEBE ([id number])[facility] [place] (SB[facility])[address] Calcium [Mass/Vol] 9.0 mg/dL Normal 8.4-10.2 [facility] Comment on above: Performed By: #### Elijah OJEDA17, LAB99, [id number] ####Curriculum Designer: KEMAR ABEBE ([id number])[facility] (SBHLAB)[address] Chloride [Moles/Vol] 103 mmol/L Normal 98-107 [facility] Comment on above: Performed By: #### Elijah AB17, LAB99, [id number] ####Curriculum Designer: KEMAR ABEBE ([id number])[facility] [place] (SBHLAB)[address] CO2 [Moles/Vol] 21 mmol/L Low 22-29 [facility] Comment on above: Performed By: #### Elijah MENDOZA, LAB99, [id number] ####Curriculum Designer: KEMAR ABEBE ([id number])[facility] (SBHLAB)[address] Creatinine [Mass/Vol] 1.16 mg/dL Normal [facility] Comment on above: Performed By: #### Elijah OJEDA17, LAB99, [id number] ####Curriculum Designer: KEMAR ABEBE ([id number])[facility] (SBHLAB)[address] GLOMERULAR FILTRATION RATE ML/MIN/1.73 SQ M.PREDICTED 55.1 mL/min/1.73m*2 Low >60.0 [facility] Comment on above: Result Comment: Calc ulation based on the Chronic Kidney Disease Epidemiology Collaboration (CKD-EPI) equation refit without adjustment for race Performed By: #### Elijah AB17, LAB99, [id number] ####Curriculum Designer: KEMAR ABEBE ([id number])[facility] (SBHLAB)[address] Glucose [Mass/Vol] 226 mg/dL High 74-100 [facility] Comment on above: Performed By: #### L AB17, LAB99, [id number] ####Curriculum Designer: KEMAR ANDRAE ([id number])[facility] (SBHLAB)[address] Potassium [Moles/Vol] 4.1 mmol/L Normal 3.5-5.1 [facility] Comment on above: Result Comment: [facility] potassium values may be up to 0.5 mmol/L lower than serum values. Performed By: #### Elijah AB17, LAB99, [id number] ####Curriculum Designer: KEMAR MOMINHARRISON ([id number])[facility] (SBHLAB)[address] Protein [Mass/Vol] 6.7 g/dL Normal 6.4-8.3 [facility] Comment on above: Performed By: #### Elijah AB17, LAB99, [id number] ####Curriculum Designer: KEMAR MOMINZOIESAAD ([id number])[facility] (SBHLAB)[address] Sodium [Moles/Vol] 137 mmol/L Normal 136-145 [facility] Comment on above: Performed By: #### Elijah AB17, LAB99, [id number] ####Curriculum Designer: KEMAR MOMINHARRISON ([id number])[facility] (SBHLAB)[address] [place] [address] Urea nitrogen [Mass/Vol] 24 mg/dL High 9-23 [facility] Comment on above: Performed By: #### L AB17, LAB99, [id number] ####Curriculum Designer: KEMAR MOMINHARRISON ([id number])[facility] (SBHLAB)[address] ABDOMEN PELVIS W CONTRAST on 10-18-2024 CT ABDOMEN PELVIS W CONTRAST Normal [facility] CT Abdomen and Pelvis W cont rast Erica 10-18-2024 Distended gallbladde r with suspected gallbladder wall edema concerning for acute cholecystitis. Distended stomach with air-fluid level may be related. Please correlate clinically. Follow-up recommended. [facility] Dr Woodall. Report Dictated on Electronically Signed By: Javy Urias MD Electronically Signed Date/Time: 10/18/2024 7:12 PM EST [facility] [employer] Patient Name: WILL ALVARADO : 1965 [...] adenopathy. No definite aneurysm. No spinal compression. [facility] [employer] Javy Urias MD - 10/18/2024 Patient [...] Electronically Signed Date/Time: 10/18/2024 7:12 PM EST [facility] Radiology Study observation (narrative) [facility] CTA Chest vessels WO and W c ontrast Erica 10-18-2024 Impression:Very limi laura due to motion.. Consider repeat exam or VQ scan for persistent symptoms. Note made of distended stomach with air-fluid level. Report Dictated on Electronically Signed By: Javy Urias MD Electronically Signed Date/Time: 10/18/2024 7:05 PM [facility] [employer] Patient Name: WILL ALVARADO : 1965 [...] Distended stomach with air-fluid level. Significance uncertain.. [facility] [employer] Javy Urias MD - 10/18/2024 Patient [...] Electronically Signed Date/Time: 10/18/2024 7:05 PM EST [facility] [employer] Radiology Study observation (narrative) [employer] CTA Chest vessels WO and W c ontrast IVOrdered By: Javy Urias on 10-18-2024 [employer] Work Phone: Comprehensive metabolic 1998 panelon 10-18-2024 Albumin [Mass/Vol] 3 g/dL Low 3.5 - 5.0 g/dL [employer] ALP [Catalytic activity/Vol] 133 U/L [employer] ALT [Catalytic activity/Vol] 67 U/L [employer] Anion gap [Moles/Vol] 13 mmol/L 3 - 13 mmol/L [employer] AST [Catalytic activity/Vol] 50 U/L High NINF - 34 U/L [facility] Bilirubin [Mass/Vol] 0.7 mg/dL NINF - 1.2 mg/dL [facility] Calcium [Mass/Vol] 9 mg/dL 8.4 - 10. 2 mg/dL [facility] Chloride [Moles/Vol] 103 mmol/L 98 - 10 7 mmol/L [facility] CO2 [Moles/Vol] 21 mmol/L Low 22 - 29 mmol/L [facility] Creatinine [Mass/Vol] 1.16 mg/dL [facility] GFR/1.73 sq M.predicted (S/P/Bld) [Vol rate/Area] 55.1 mL/min Low - PINF [facility] Comment on above: Calculation based on the Chronic Kidney Disease Epidemiology Collaboration (CKD-EPI) equation refit without adjustment for race Glucose [Mass/Vol] 226 mg/dL High 74 - 100 mg/dL [facility] Interpretation and review of laboratory results Abnormal [facility] Potassium [Moles/Vol] 4.1 mmol/L 3.5 - 5.1 mmol/L [facility] Comment on above: Plasma potassium helen ues may be up to 0.5 mmol/L lower than serum values. Protein [Mass/Vol] 6.7 g/dL 6.4 - 8.3 g/dL [facility] Sodium [Moles/Vol] 137 mmol/L 136 - 145 mmol/L [facility] Urea nitrogen [Mass/Vol] 24 mg/dL High 9 - 23 mg/dL [facility] ECG 12-LEADon 10-18-2024 ECG 12-LEAD IMPRESSION: Sinus rhythm Left ventricular hypertrophy Anterior Q waves, possibly due to LVH Electronically Signed On 10-18-2024 23:06:53 EST by Sunitha Borja Normal [facility] ED Nursing Noteon 10-18-2024 ED Nursing Note EKG at bedside Normal [facility] ED Nursing Note EKG called Normal [facility] ED Nursing Note [facility]. Pt presents with abd pain, diarrhea, chest pain. Pt presents aox4 speaking in full and complete sentences. Normal [facility] ED Provider Noteon ED Provider Note Normal [facility] HIGH SENSITIVITY TROPONIN, S ERIAL BASELINEon 10-18-2024 TROPONIN HIGH SENSITIVITY BASELINE <3 Normal [facility] Comment on above: Performed By: #### L AB17, LAB99, [id number] ####Curriculum Designer: KEMAR ABEBE ([id number])[facility] ([facility] HIGH SENSITIVITY TROPONIN, S ERIAL, SECOND TESTon 10-18-2024 TROPONIN HS DELTA, BASELINE TO SECOND Normal [facility] Comment on above: Result Comment: A tr [...] further clinical guidance. Performed By: #### L [id number] ####Curriculum Designer: KEMAR ABEBE ([id number])[facility] ([facility])[address] TROPONIN HS, SERIAL REFLEX, TEST TWO <3 Normal [facility] Comment on above: Performed By: #### L [id number] ####Curriculum Designer: KEMAR ABEBE ([id number])[facility] ([facility])[address] LACTIC ACID WITH REFLEXon Lactate [Moles/Vol] 0.8 mmol/L Normal 0.5-2.2 [facility] Comment on above: Performed By: #### L [id number] ####Curriculum Designer: KEMAR ABEBE ([id number])[facility] ([facility] Lactate [Moles/Vol] 2.2 mmol/L Normal 0.5-2.2 [facility] Comment on above: Performed By: #### L [id number] ####Curriculum Designer: KEMAR ABEBE ([id number])[facility] ([facility] LIPASEon 10-18-2024 Lipase [Catalytic activity/Vol] 6 U/L Normal <55 [facility] Comment on above: Performed By: #### L AB17, LAB99, [id number] ####Curriculum Designer: KEMAR ABEBE ([id number])[facility] (SBHLAB)[address] Laboratory - Chemistry and C hemistry - challengeon 10-18-2024 Lactate [Moles/Vol] 0.8 mmol/L 0.5 - 2. 2 mmol/L [facility] Glucose [Mass/Vol] 136 mg/dL High 70 - 100 mg/dL [facility] Lactate [Moles/Vol] 2.2 mmol/L 0.5 - 2. 2 mmol/L [facility] Lipase [Catalytic activity/Vol] 6 U/L NINF - 55 U/L [facility] Lipase [Catalytic activity/V ol]on 10-18-2024 Interpretation and review of laboratory results Normal [facility] MANUAL DIFFERENTIALon 2023 BAND NEUTROPHILS TOTAL PER COUNTED LEUKOCYTES BY MANUAL COUNT 7 Normal [facility] Comment on above: Performed By: #### L [id number], [id number] ####Curriculum Designer: KEMAR ABEBE ([id number])[facility] (SBHLAB)[address] BANDS 0.9 10*3/uL High <=0.0 [facility] Comment on above: Performed By: #### L [id number], [id number] ####Curriculum Designer: KEMAR ABEBE ([id number])[facility] (SBAB)[address] CELLS COUNTED TOTAL (#) IN BLOOD 200 Normal [facility] Comment on above: Performed By: #### L [id number], [id number] ####Curriculum Designer: KEMAR ABEBE ([id number])[facility] (SBAB)[address] LEUKOCYTE MORPHOLOGY FINDING IN BLOOD Normal Normal [facility] Comment on above: Performed By: #### L [id number], [id number] ####Curriculum Designer: KEMAR ABEBE ([id number])[facility] (SBHLAB)[address] [place] [address] [place] LEUKOCYTES (10*3/UL) NUCLEATED ERYTHROCYTE ADJUST 25.9 10*3/uL High 3.6-10.7 [facility] Comment on above: Performed By: #### L SR0670, [id number] ####Curriculum Designer: KEMAR ABEBE ([id number])[facility] [place] (SB[facility]AB)[address] [place] [address] [place] LYMPHOCYTES (10*3/UL) IN BLOOD BY MANUAL COUNT 0.4 10*3/uL Low 1.0-4.3 [facility] Comment on above: Performed By: #### L [id number], [id number] ####Curriculum Designer: KEMAR ABEBE ([id number])[facility] [place] (SBHLAB)[address] [place] [address] [place] LYMPHOCYTES TOTAL PER COUNTED LEUKOCYTES BY MANUAL COUNT 3 Normal [facility] Comment on above: Performed By: #### L [id number], [id number] ####Curriculum Designer: KEMAR ABEBE ([id number])[facility] [place] (SBHLAB)[address] [place] [address] [place] LYMPHOCYTES VARIANT/100 LEUKOCYTES IN BLOOD 3 % High <=0 [facility] Comment on above: Performed By: #### L [id number], [id number] ####Curriculum Designer: KEMAR ABEBE ([id number])[facility] [place] (SB[facility])[address] [place] [address] [place] LYMPHOCYTES/100 LEUKOCYTES IN BLOOD BY MANUAL COUNT 2 % Low 15-45 [facility] Comment on above: Performed By: #### L [id number], [id number] ####Curriculum Designer: KEMAR ABEBE ([id number])[facility] [place] (SBHLAB)[address] [place] [address] [place] METAMYELOCYTES (10*3/UL) IN BLOOD BY MANUAL COUNT 0.1 10*3/uL High <=0.0 [facility] Comment on above: Performed By: #### L [id number], [id number] ####Curriculum Designer: KEMAR ABEBE ([id number])[facility] (SBHLAB)[address] [place] [address] [place] METAMYELOCYTES TOTAL PER COUNTED LEUKOCYTES BY MANUAL COUNT 1 Normal [facility] Comment on above: Performed By: #### L [id number], [id number] ####Curriculum Designer: KEMAR ANDRAE ([id number])[facility] (SBHLAB)[address] [place] [address] [place] METAMYELOCYTES/100 LEUKOCYTES IN BLOOD BY MANUAL COUNT 1 % High <=0 [facility] Comment on above: Performed By: #### L [id number], [id number] ####Curriculum Designer: KEMAR MOMINHARRISON ([id number])[facility] (SBHLAB)[address] [place] [address] [place] MONOCYTES (10*3/UL) IN BLOOD BY MANUAL COUNT 1.4 10*3/uL High 0.0-0.9 [facility] Comment on above: Performed By: #### L [id number], [id number] ####Curriculum Designer: KEMAR MOMINHARRISON ([id number])[facility] (SBHLAB)[address] [place] [address] [place] MONOCYTES TOTAL PER COUNTED LEUKOCYTES BY MANUAL COUNT 11 Normal [facility] Comment on above: Performed By: #### L RU1169, [id number] ####Curriculum Designer: KEMAR BANUELOSCER ([id number])[facility] (SBHLAB)[address] [place] [address] [place] MONOCYTES/100 LEUKOCYTES IN BLOOD BY MANUAL COUNT 6 % Normal 5-13 [facility] Comment on above: Performed By: #### L [id number], [id number] ####Curriculum Designer: KEMAR ABEBE ([id number])[facility] (SBHLAB)[address] [place] [address] [place] NEUTROPHILS (SEGS+BANDS) (10*3/UL) BY MANUAL COUNT 23.2 10*3/uL High 1.8-7.0 [facility] Comment on above: Performed By: #### L [id number], [id number] ####Curriculum Designer: KEMAR ABEBE ([id number])[facility] (SBHLAB)[address] [place] [address] [place] NEUTROPHILS BAND FORM/100 LEUKOCYTES IN BLOOD BY MANUAL COUNT 4 % High <=0 [facility] Comment on above: Performed By: #### L CL1126, [id number] ####Curriculum Designer: KEMAR ABEBE ([id number])[facility] (SBHLAB)[address] [place] [address] [place] NEUTROPHILS TOTAL PER COUNTED LEUKOCYTES BY MANUAL COUNT 172 Normal [facility] Comment on above: Performed By: #### L [id number], [id number] ####Curriculum Designer: KEMAR ABEBE ([id number])[facility] [place] ([facility])[address] PLATELET MORPHOLOGY IN BLOOD Normal Normal [facility] Comment on above: Performed By: #### L [id number], [id number] ####Curriculum Designer: KEMAR ABEBE ([id number])[facility] [place] ([facility])[address] [place] [address] [place] RBC MORPHOLOGY IN BLOOD Normal Normal [facility] Comment on above: Performed By: #### L IT9784, [id number] ####Curriculum Designer: KEMAR ABEBE ([id number])[facility] [place] (SB[facility])[address] [place] [address] [place] SEGEMENTED NEUTROPHILS/100 LEUKOCYTES BY MANUAL COUNT 86 % High 38-82 [facility] Comment on above: Performed By: #### L [id number], [id number] ####Curriculum Designer: KEMAR ABEBE ([id number])[facility] [place] (SB[facility])[address] [place] [address] [place] SEGMENTED NEUTROPHILS (10*3/UL)IN BLOOD BY MANUAL COUNT 23.2 10*3/uL High 1.8-7.5 [facility] Comment on above: Performed By: #### L [id number], [id number] ####Curriculum Designer: KEMAR ABEBE ([id number])[facility] (SBHLAB)[address] VARIANT LYMPHOCYTES (10*3/UL) IN BLOOD BY MANUAL COUNT 0.8 10*3/uL High <=0.0 [facility] Comment on above: Performed By: #### L [id number], [id number] ####Curriculum Designer: KEMAR ABEBE ([id number])[facility] (SBHLAB)[address] VARIANT LYMPHOCYTES TOTAL PER COUNTED LEUKOCYTES BY MANUAL COUNT 6 Normal [facility] Comment on above: Performed By: #### L [id number], [id number] ####Curriculum Designer: KEMAR ABEBE ([id number])[facility] (SBHLAB)[address] Manual differential performe d Ql (Bld)on 10-18-2024 Atypical Lymphocytes Manual 6 [facility] [employer] Band form neutrophils (Bld) [#/Vol] 0.9 10*3/uL High NINF - 0.0 10*3/uL [facility] Band form neutrophils/100 WBC (Bld) 4 % High NINF - 0 % [facility] Bands Manual 7 [facility] Cells Counted Total (Bld) [#] 200 {cells} [facility] Interpretation and review of laboratory results Abnormal [facility] Leukocyte morphology finding Nom (Bld) Normal [facility] Lymphocytes (Bld) [#/Vol] 0.4 10*3/uL Low 1.0 - 4.3 10*3/uL [facility] Lymphocytes Manual 3 [facility] Health Lymphocytes/100 WBC (Bld) 2 % Low 15 - 45 % [facility] Metamyelocytes (Bld) [#/Vol] 0.1 10*3/uL High NINF - 0.0 10*3/uL [facility] Metamyelocytes Manual 1 [facility] Metamyelocytes/100 WBC (Bld) 1 % High NINF - 0 % [facility] Monocytes (Bld) [#/Vol] 1.4 10*3/uL High 0.0 - 0.9 10*3/uL [facility] Monocytes Manual 11 [facility] Monocytes/100 WBC (Bld) 6 % 5 - 13 % [facility] Neutrophils (Bld) [#/Vol] 23.2 10*3/uL High 1.8 - 7.5 10*3/uL [facility] Neutrophils Manual 172 [facility] Platelet morphology finding Nom (Bld) Normal [facility] RBC morphology finding Nom (Bld) Normal [facility] Segmented neutrophils/100 WBC (Bld) 86 % High 38 - 82 % [facility] Variant lymphocytes (Bld) [#/Vol] 0.8 10*3/uL High NINF - 0.0 10*3/uL [facility] Variant lymphocytes/100 WBC (Bld) 3 % High NINF - 0 % [facility] WBC corrected for nucl RBC (Bld) [#/Vol] 25.9 10*3/uL High 3.6 - 10.7 10*3/uL [facility] No Panel Informationon 10-18 Interpretation and review of laboratory results Normal [facility] Sinus rhythm Left ventricular hypertrophy Anterior Q waves, possibly due to LVH Electronically Signed On 10-18-2024 23:06:53 EST by Sunitha Borja CV Sunitha Patel MD - 10/18/2024 IMPRESSION: Sinus rhythm Left ventricular hypertrophy Anterior Q waves, possibly due to LVH Electronically Signed On 10-18-2024 23:06:53 EST by Sunitha Borja [facility] Interpretation and review of laboratory results Abnormal [facility] Performed by: [facility], [address] [place], [place] [id number] CLIA ID: [id number] [facility] Troponin HS Delta, Baseline to Second [facility] Comment on above: A troponin delta gre [...] guidance. Troponin HS, Serial Second ng/L ng/L [facility] Troponin HS, Serial Baseline ng/L ng/L [facility] Interpretation and review of laboratory results Normal [facility] No Panel InformationOrdered By: Sunitha Borja on 10-18-2024 P Curlew 68 degrees [employer] Phone: CA Interval 185 ms [employer] Phone: QRS Curlew -37 degrees [employer] Phone: QRSD Interval 108 ms [employer] Work Phone: QT Interval 386 ms [employer] Phone: QTC Interval 489 ms [employer] Phone: T Wave Curlew 47 degrees [employer]What Phone: [employer] Phone: URINE CULTUREon 10-18-2024 Bacteria identified Cx Nom (U) Normal [facility] [employer] [facility] Comment on above: Performed By: #### L [id number] ####Curriculum Designer: MARCELA LUCERO ([id number])[facility] (SACLAB)[address] [place] [address]#### [id number] ####Curriculum Designer: KEMAR ABEBE ([id number])[facility] (SBHLAB)[address] [place] [address] US ABDOMEN LIMITEDon 024 US ABDOMEN LIMITED Normal [facility] [employer] [facility] US Abdomen limitedon 024 1. Cholestasis, cholelithiasis, gallbladder wall thickening, with probable mural edema and trace pericholecystic fluid, as well as positive sonographic Caldwell's sign, suspicious for postinflammatory change, including acute cholecystitis. Clinical correlation and follow-up as indicated. Report Dictated on Electronically Signed By: Joel Haddad MD Electronically Signed Date/Time: 10/18/2024 8:21 PM [facility] [employer] Patient Name: WILL ALVARADO : 1965 [...] adequately visualized due to overlying bowel gas. [facility] RADIOLOGY SYSTEM Joel Haddad MD - 10/18/2024 [facility] 1965 [id number] Exam Date/Time: 10/18/2024 19:36 Procedure: US ABDOMEN [...] Electronically Signed Date/Time: 10/18/2024 8:21 PM EST [facility] Radiology Study observation (narrative) [facility] US Abdomen limitedOrdered By : Joel Haddad on 10-18-2024 [facility] [employer] Work Phone: Vital signsOrdered By: Sunitha Borja on 10-18-2024 Heart rate 96 /min bpm [facility] [employer] Work Phone: 36on 10-17-2024 36 [facility] nurse laney. I relayed the message below and she verbalized understanding. Normal [facility] 36 A lot of varibility. Many of results are adequate, many high. No clear trend to change doses thank you Normal [facility] 36on 10-16-2024 36 Patient's BGL Normal [facility] 36on 10-10-2024 36 Faxed recommendation to [facility]([phone]) Normal [facility] 36on 10-09-2024 36 Keep doses the same for now thank you Normal [facility] 36 Patient's BGL Normal [facility] 36on 10-04-2024 36 Patient's BGL Normal [facility] 36on 09-26-2024 36 Notified pt's nurse at his facilities. Normal [facility] 36on 09-25-2024 36 A lot of variability please keep doses the same thank you Normal [facility] 36 Patient's BGL Normal [facility] Hemoglobin A1con 09-22-2024 HbA1c (Bld) [Mass fraction] 7.6 % High 3.8-5.6 [facility] Comment on above: Order Comment: 103-1 Result Comment: Norm al < 5.7 % Prediabetic 5.7 - 6.4 % Diabetic >or= 6.5 % Please note range changes. Performed By: #### M 100.2200, L400.2010 #### [facility] [address] [place], [address] Hemoglobin A1c percentageOrd ered By: Jared Guzman on 09-22-2024 HbA1c (Bld) [Mass fraction] 7.6 % High 3.8-5.6 [facility] Comment on above: Normal < 5.7 % Predi abetic 5.7 - 6.4 % Diabetic >or= 6.5 % Please note range changes. 09-20-2024 36 Faxed recommendation to [facility]. Thank you! Normal [facility] 36on 09-19-2024 36 Very high doses with variability and history severe hypoglycemia- would not change doses for now Normal [facility] 36 Patient's BGL Normal [facility] 36on 09-13-2024 36 [facility]ed info[facility]. [phone] Normal [facility] CBC-Complete Blood Cnt No Di ff09-12-2024 Erythrocyte distribution width (RBC) [Ratio] 13.8 % Normal 11.6-14.6 [facility] Comment on above: Order Comment: 103-1 Performed By: #### L 100.0500, L500.4100, L500.4050 #### [facility] [address] [place], [address] Hematocrit (Bld) [Volume fraction] 35.2 % Low 37-47 [facility] Comment on above: Order Comment: 103-1 Performed By: #### L 100.0500, L500.4100, L500.4050 #### [facility] [address] [place], [address] Hemoglobin (Bld) [Mass/Vol] 11.3 g/dL Low 12.0-15.0 [facility] Comment on above: Order Comment: 103-1 Performed By: #### L 100.0500, L500.4100, L500.4050 #### [facility] [address] [place], [address] MCH (RBC) [Entitic mass] 27.8 pg Normal 27.0-32.0 [facility] Comment on above: Order Comment: 103-1 Performed By: #### L 100.0500, L500.4100, L500.4050 #### [facility] [address] [place], [address] MCHC (RBC) [Mass/Vol] 32.1 g/dL Normal 32-36 [facility] Comment on above: Order Comment: 103-1 Performed By: #### L 100.0500, L500.4100, L500.4050 #### [facility] [address] [place], [address] MCV (RBC) [Entitic vol] 86.7 fL Normal 81-99 [facility] Comment on above: Order Comment: 103-1 Performed By: #### L 100.0500, L500.4100, L500.4050 #### [facility] [address] [place], [address] Platelet mean volume (Bld) [Entitic vol] 10.2 fL Normal 6.2-12.0 [facility] Comment on above: Order Comment: 103-1 Performed By: #### L 100.0500, L500.4100, L500.4050 #### [facility] [address] [place], [address] Platelets (Bld) [#/Vol] 352 10*3/uL Normal 150-450 [facility] Comment on above: Order Comment: 103-1 Performed By: #### L 100.0500, L500.4100, L500.4050 #### [facility] [address] [place], [address] RBC (Bld) [#/Vol] 4.06 10*6/uL Low 4.2-5.4 [facility] Comment on above: Order Comment: 103-1 Performed By: #### L 100.0500, L500.4100, L500.4050 #### [facility] [address] [place], [address] RDW SD 43.5 fl Normal 35.1-43.9 [facility] Comment on above: Order Comment: 103-1 Performed By: #### L 100.0500, L500.4100, L500.4050 #### [facility] [address] [place], [address] WBC (Bld) [#/Vol] 8.5 10*3/uL Normal 4.4-11.0 [facility] Comment on above: Order Comment: 103-1 Performed By: #### L 100.0500, L500.4100, L500.4050 #### [facility] [address] [place], [address] 36on 09-11-2024 36 Keep doses the same for now thank you Normal [facility] 36 Patient's BGL Normal [facility] CBC-Complete Blood Cnt No Di ffon 09-11-2024 HCT Normal 37-47 [facility] Comment on above: Order Comment: 103.1 Result Comment: DID NOT GET PURPLE TOP Performed By: #### L 100.0500, L500.4050 #### [facility] [address] [place], [address] HGB Normal 12.0-15.0 [facility] Comment on above: Order Comment: 103.1 Result Comment: DID NOT GET PURPLE TOP Performed By: #### L 100.0500, L500.4050 #### [facility] [address] [place], [address] MCH Normal 27.0-32.0 [facility] Comment on above: Order Comment: 103.1 Result Comment: DID NOT GET PURPLE TOP Performed By: #### L 100.0500, L500.4050 #### [facility] [address] [place], [address] MCHC Normal 32-36 [facility] Comment on above: Order Comment: 103.1 Result Comment: DID NOT GET PURPLE TOP Performed By: #### L 100.0500, L500.4050 #### [facility] [address] [place], [address] MCV Normal 81-99 [facility] Comment on above: Order Comment: 103.1 Result Comment: DID NOT GET PURPLE TOP Performed By: #### L 100.0500, L500.4050 #### [facility] [address] [place], [address] PLT Normal 150-450 [facility] Comment on above: Order Comment: 103.1 Result Comment: DID NOT GET PURPLE TOP Performed By: #### L 100.0500, L500.4050 #### [facility] [address] [place], [address] RBC Normal 4.2-5.4 [facility] Comment on above: Order Comment: 103.1 Result Comment: DID NOT GET PURPLE TOP Performed By: #### L 100.0500, L500.4050 #### [facility] [address] [place], [address] RDW CV Normal 11.6-14.6 [facility] Comment on above: Order Comment: 103.1 Result Comment: DID NOT GET PURPLE TOP Performed By: #### L 100.0500, L500.4050 #### [facility] [address] [place], [address] RDW SD Normal 35.1-43.9 [facility] Comment on above: Order Comment: 103.1 Result Comment: DID NOT GET PURPLE TOP Performed By: #### L 100.0500, L500.4050 #### [facility] [address] [place], [address] WBC Normal 4.4-11.0 [facility] Comment on above: Order Comment: 103.1 Result Comment: DID NOT GET PURPLE TOP Performed By: #### L 100.0500, L500.4050 #### [facility] [address] [place], [address] Comprehensive Metabolic Prof macho 09-11-2024 Albumin [Mass/Vol] 3.3 g/dL Normal 3.2-5.0 [facility] Comment on above: Order Comment: 103.1 Performed By: #### L 100.0500, L500.4050 #### [facility] [address] [place], [address] Albumin/Globulin [Mass ratio] 1.0 {ratio} Normal 0.9-2.4 [facility] Comment on above: Order Comment: 103.1 Performed By: #### L 100.0500, L500.4050 #### [facility] [address] [place], [address] ALK P 169 U/L High 45-117 [facility] Comment on above: Order Comment: 103.1 Performed By: #### L 100.0500, L500.4050 #### [facility] [address] [place], [address] ALT [Catalytic activity/Vol] 30 U/L Normal 13-56 [facility] Comment on above: Order Comment: 103.1 Performed By: #### L 100.0500, L500.4050 #### [facility] [address] [place], [address] AST [Catalytic activity/Vol] 15 U/L Normal 15-37 [facility] Comment on above: Order Comment: 103.1 Performed By: #### L 100.0500, L500.4050 #### [facility] [address] [place], [address] Bilirubin [Mass/Vol] 0.40 mg/dL Normal 0.20-1.00 [facility] Comment on above: Order Comment: 103.1 Result Comment: For patients on eltrombopag therapy, use of Dimension Spray TBIL is not recommended. Performed By: #### L 100.0500, L500.4050 #### [facility] [address] [place], [address] BUN/CRE 17.4 RATIO Normal 10-20 [facility] Comment on above: Order Comment: 103.1 Performed By: #### L 100.0500, L500.4050 #### [facility] [address] [place], [address] CA,Total 8.9 mg/dL Normal 8.5-10.1 [facility] Comment on above: Order Comment: 103.1 Performed By: #### L 100.0500, L500.4050 #### [facility] [address] [place], [address] Chloride [Moles/Vol] 105 mmol/L Normal 98-107 [facility] Comment on above: Order Comment: 103.1 Performed By: #### L 100.0500, L500.4050 #### [facility] [address] [place], [address] CO2 [Moles/Vol] 27.0 mmol/L Normal 21.0-32.0 [facility] Comment on above: Order Comment: 103.1 Performed By: #### L 100.0500, L500.4050 #### [facility] [address] [place], [address] Creatinine [Mass/Vol] 0.86 mg/dL Normal 0.55-1.02 [facility] Comment on above: Order Comment: 103.1 Result Comment: The validity of the calculated GFR GFRAA in patients over 70 years has not been determined. Clinical correlation is essential. Performed By: #### L 100.0500, L500.4050 #### [facility] [address] [place], [address] EST GFR - AA 87 mL/min Normal >60 [facility] Comment on above: Order Comment: 103.1 Result Comment: Afri can Greenlandic GFR Calc Performed By: #### L 100.0500, L500.4050 #### [facility] [address] [place], [address] GAP 7 Normal 5-15 [facility] Comment on above: Order Comment: 103.1 Performed By: #### L 100.0500, L500.4050 #### [facility] [address] [place], [address] GFR/1.73 sq M.predicted among non-blacks MDRD (S/P/Bld) [Vol rate/Area] 72 mL/min/{1.73_m2} Normal >60 [facility] Comment on above: Order Comment: 103.1 Result Comment: Non- GFR Calc Performed By: #### L 100.0500, L500.4050 #### [facility] [address] [place], [address] Globulin (S) [Mass/Vol] 3.4 g/dL Normal 2.2-4.2 [facility] Comment on above: Order Comment: 103.1 Performed By: #### L 100.0500, L500.4050 #### [facility] [address] [place], [address] Glucose [Mass/Vol] 283 mg/dL High 74-106 [facility] Comment on above: Order Comment: 103.1 Result Comment: Gluc ose result greater than or equal to 200 mg/dL suggests DIABETES MELLITUS per A.D.A. criteria. Performed By: #### L 100.0500, L500.4050 #### [facility] [address] [place], [address] Potassium [Moles/Vol] 4.3 mmol/L Normal 3.5-5.1 [facility] Comment on above: Order Comment: 103.1 Performed By: #### L 100.0500, L500.4050 #### [facility] [address] [place], [address] Sodium [Moles/Vol] 139 mmol/L Normal 136-145 [facility] Comment on above: Order Comment: 103.1 Performed By: #### L 100.0500, L500.4050 #### [facility] [address] [place], [address] T PROT 6.7 g/dL Normal 6.4-8.2 [facility] Comment on above: Order Comment: 103.1 Performed By: #### L 100.0500, L500.4050 #### [facility] [address] [place], [address] Urea nitrogen [Mass/Vol] 15 mg/dL Normal 7-18 [facility] Comment on above: Order Comment: 103.1 Performed By: #### L 100.0500, L500.4050 #### [facility] [address] [place], [address] 36on 08-30-2024 36 [facility]. [facility]! Normal [facility] 36on 08-29-2024 36 For now keep doses t he same thank you Normal [facility] 36 Patient's BGL Normal [facility] 36on 08-22-2024 36 Patient's B GL Normal [facility] 36on 08-09-2024 36 There's a more recen t BGL that you also advised no changes. I faxed over recommendation to [facility]. Thank you! Normal [facility] 36 [facility] Thank you! Normal [facility] 36on 08-08-2024 36 Somewhat improved; w ould not make any changes at this point thank you Normal [facility] 36 Patient's BGL Normal [facility] 36on 08-04-2024 36 Please keep doses th e same thank you [facility] 36on 08-03-2024 36 Patient's BGL Normal [facility] Basic Metabolic Profile (BMP )on 08-02-2024 BUN/CRE 19.6 RATIO Normal - [facility] Comment on above: Performed By: #### L 100.0500, L500.4100, L500.4050 #### [facility] [address] [place], [address] CA,Total 9.3 mg/dL Normal 8.5-10.1 [facility] Comment on above: Performed By: #### L 100.0500, L500.4100, L500.4050 #### [facility] [address] [place], [address] Chloride [Moles/Vol] 105 mmol/L Normal 98-107 [facility] Comment on above: Performed By: #### L 100.0500, L500.4100, L500.4050 #### [facility] [address] [place], [address] CO2 [Moles/Vol] 25.0 mmol/L Normal 21.0-32.0 [facility] Comment on above: Performed By: #### L 100.0500, L500.4100, L500.4050 #### [facility] [address] [place], [address] Creatinine [Mass/Vol] 0.72 mg/dL Normal 0.55-1.02 [facility] Comment on above: Result Comment: The validity of the calculated GFR GFRAA in patients over 70 years has not been determined. Clinical correlation is essential. Performed By: #### L 100.0500, L500.4100, L500.4050 #### [facility] [address] [place], [address] EST GFR - AA 108 mL/min Normal >60 [facility] Comment on above: Result Comment: Afri can Green[place] GFR Calc Performed By: #### L 100.0500, L500.4100, L500.4050 #### [facility] [address] [place], [address] GAP 6 Normal 5-15 [facility] Comment on above: Performed By: #### L 100.0500, L500.4100, L500.4050 #### [facility] [address] [place], [address] GFR/1.73 sq M.predicted among non-blacks MDRD (S/P/Bld) [Vol rate/Area] 89 mL/min/{1.73_m2} Normal >60 [facility] Comment on above: Result Comment: Non- GFR Calc Performed By: #### L 100.0500, L500.4100, L500.4050 #### [facility] [address] [place], [address] Glucose [Mass/Vol] 207 mg/dL High 74-106 [facility] Comment on above: Result Comment: Gluc ose result greater than or equal to 200 mg/dL suggests DIABETES MELLITUS per A.D.A. criteria. Performed By: #### L 100.0500, L500.4100, L500.4050 #### [facility] [address] [place], [address] Potassium [Moles/Vol] 4.4 mmol/L Normal 3.5-5.1 [facility] Comment on above: Performed By: #### L 100.0500, L500.4100, L500.4050 #### [facility] [address] [place], [address] Sodium [Moles/Vol] 136 mmol/L Normal 136-145 [facility] Comment on above: Performed By: #### L 100.0500, L500.4100, L500.4050 #### [facility] [address] [place], [address] Urea nitrogen [Mass/Vol] 14 mg/dL Normal 7-18 [facility] Comment on above: Performed By: #### L 100.0500, L500.4100, L500.4050 #### [facility] [address] [place], [address] CBC-Complete Blood Cnt No Di ffon 08-02-2024 Erythrocyte distribution width (RBC) [Ratio] 14.1 % Normal 11.6-14.6 [facility] Comment on above: Performed By: #### L 100.0500, L500.4100, L500.4050 #### [facility] [address] [place], [address] Hematocrit (Bld) [Volume fraction] 35.6 % Low 37-47 [facility] Comment on above: Performed By: #### L 100.0500, L500.4100, L500.4050 #### [facility] [address] [place], [address] Hemoglobin (Bld) [Mass/Vol] 11.1 g/dL Low 12.0-15.0 [facility] Comment on above: Performed By: #### L 100.0500, L500.4100, L500.4050 #### [facility] [address] [place], [address] MCH (RBC) [Entitic mass] 27.2 pg Normal 27.0-32.0 [facility] Comment on above: Performed By: #### L 100.0500, L500.4100, L500.4050 #### [facility] [address] [place], [address] MCHC (RBC) [Mass/Vol] 31.2 g/dL Low 32-36 [facility] Comment on above: Performed By: #### L 100.0500, L500.4100, L500.4050 #### [facility] [address] [place], [address] MCV (RBC) [Entitic vol] 87.3 fL Normal 81-99 [facility] Comment on above: Performed By: #### L 100.0500, L500.4100, L500.4050 #### [facility] [address] [place], [address] Platelet mean volume (Bld) [Entitic vol] 10.8 fL Normal 6.2-12.0 [facility] Comment on above: Performed By: #### L 100.0500, L500.4100, L500.4050 #### [facility] [address] [place], [address] Platelets (Bld) [#/Vol] 323 10*3/uL Normal 150-450 [facility] Comment on above: Performed By: #### L 100.0500, L500.4100, L500.4050 #### [facility] [address] [place], [address] RBC (Bld) [#/Vol] 4.08 10*6/uL Low 4.2-5.4 [facility] Comment on above: Performed By: #### L 100.0500, L500.4100, L500.4050 #### [facility] [address] [place], [address] RDW SD 44.8 fl High 35.1-43.9 [facility] Comment on above: Performed By: #### L 100.0500, L500.4100, L500.4050 #### [facility] [address] [place], [address] WBC (Bld) [#/Vol] 8.8 10*3/uL Normal 4.4-11.0 [facility] Comment on above: Performed By: #### L 100.0500, L500.4100, L500.4050 #### [facility] [address] [place], [address] 36on 07-31-2024 36 Faxed recommendation to [facility]([phone]) [facility] 36on 07-28-2024 36 Please keep doses th e same thank you [facility] 36 Patient's recent BGL is below for your review. (07/20/24-07/24/24) Current DM regimen: Humulin R U500(130 units TID) Lantus (45 units BID) [facility] 36on 07-18-2024 36 [facility] and spoke with nurse. I relayed the message below and she verbalized understanding. [facility] 36 Increase lantus to 4 5 twice daily thank you [facility] 36 Patient is currently taking Humulin R U500(130 units TID) and lantus(30 units BID). [facility] 36on 07-17-2024 36 Please confirm curre nt u500 doses thank you [facility] 36 Patient's BGL Normal [facility] CBC-Complete Blood Cnt No Di ffon 07-17-2024 Erythrocyte distribution width (RBC) [Ratio] 13.9 % Normal 11.6-14.6 [facility] Comment on above: Order Comment: 103-1 Performed By: #### L 100.0500, L500.4100, L500.4050 #### [facility] [address] [place], [address] Hematocrit (Bld) [Volume fraction] 33.7 % Low 37-47 [facility] Comment on above: Order Comment: 103-1 Performed By: #### L 100.0500, L500.4100, L500.4050 #### [facility] [address] [place], [address] Hemoglobin (Bld) [Mass/Vol] 10.7 g/dL Low 12.0-15.0 [facility] Comment on above: Order Comment: 103-1 Performed By: #### L 100.0500, L500.4100, L500.4050 #### [facility] [address] [place], [address] MCH (RBC) [Entitic mass] 27.2 pg Normal 27.0-32.0 [facility] Comment on above: Order Comment: 103-1 Performed By: #### L 100.0500, L500.4100, L500.4050 #### [facility] [address] [place], [address] MCHC (RBC) [Mass/Vol] 31.8 g/dL Low 32-36 [facility] Comment on above: Order Comment: 103-1 Performed By: #### L 100.0500, L500.4100, L500.4050 #### [facility] [address] [place], [address] MCV (RBC) [Entitic vol] 85.5 fL Normal 81-99 [facility] Comment on above: Order Comment: 103-1 Performed By: #### L 100.0500, L500.4100, L500.4050 #### [facility] [address] [place], [address] Platelet mean volume (Bld) [Entitic vol] 10.3 fL Normal 6.2-12.0 [facility] Comment on above: Order Comment: 103-1 Performed By: #### L 100.0500, L500.4100, L500.4050 #### [facility] [address] [place], [address] Platelets (Bld) [#/Vol] 353 10*3/uL Normal 150-450 [facility] Comment on above: Order Comment: 103-1 Performed By: #### L 100.0500, L500.4100, L500.4050 #### [facility] [address] [place], [address] RBC (Bld) [#/Vol] 3.94 10*6/uL Low 4.2-5.4 [facility] Comment on above: Order Comment: 103-1 Performed By: #### L 100.0500, L500.4100, L500.4050 #### [facility] [address] [place], [address] RDW SD 43.3 fl Normal 35.1-43.9 [facility] Comment on above: Order Comment: 103-1 Performed By: #### L 100.0500, L500.4100, L500.4050 #### [facility] [address] [place], [address] WBC (Bld) [#/Vol] 8.0 10*3/uL Normal 4.4-11.0 [facility] Comment on above: Order Comment: 103-1 Performed By: #### L 100.0500, L500.4100, L500.4050 #### [facility] [address] [place], [address] Comprehensive Metabolic Prof ilon 07-17-2024 Albumin [Mass/Vol] 2.9 g/dL Low 3.2-5.0 [facility] Comment on above: Order Comment: 103-1 Performed By: #### L 100.0500, L500.4100, L500.4050 #### [facility] [address] [place], [address] Albumin/Globulin [Mass ratio] 0.9 {ratio} Normal 0.9-2.4 [facility] Comment on above: Order Comment: 103-1 Performed By: #### L 100.0500, L500.4100, L500.4050 #### [facility] [address] [place], [address] ALK P 152 U/L High 45-117 [facility] Comment on above: Order Comment: 103-1 Performed By: #### L 100.0500, L500.4100, L500.4050 #### [facility] [address] [place] [place], [address] ALT [Catalytic activity/Vol] 28 U/L Normal 13-56 [facility] Comment on above: Order Comment: 103-1 Performed By: #### L 100.0500, L500.4100, L500.4050 #### [facility] [address] [place], [address] AST [Catalytic activity/Vol] 14 U/L Low 15-37 [facility] Comment on above: Order Comment: 103-1 Performed By: #### L 100.0500, L500.4100, L500.4050 #### [facility] [address] [place], [address] Bilirubin [Mass/Vol] 0.30 mg/dL Normal 0.20-1.00 [facility] Comment on above: Order Comment: 103-1 Result Comment: For patients on eltrombopag therapy, use of Dimension Spray TBIL is not recommended. Performed By: #### L 100.0500, L500.4100, L500.4050 #### [facility] [address] [place], [address] BUN/CRE 21.4 RATIO High 10-20 [facility] Comment on above: Order Comment: 103-1 Performed By: #### L 100.0500, L500.4100, L500.4050 #### [facility] [address] [place], [address] CA,Total 9.1 mg/dL Normal 8.5-10.1 [facility] Comment on above: Order Comment: 103-1 Performed By: #### L 100.0500, L500.4100, L500.4050 #### [facility] [address] [place], [address] Chloride [Moles/Vol] 104 mmol/L Normal 98-107 [facility] Comment on above: Order Comment: 103-1 Performed By: #### L 100.0500, L500.4100, L500.4050 #### [facility] [address] [place], [address] CO2 [Moles/Vol] 27.0 mmol/L Normal 21.0-32.0 [facility] Comment on above: Order Comment: 103-1 Performed By: #### L 100.0500, L500.4100, L500.4050 #### [facility] [address] [place], [address] Creatinine [Mass/Vol] 0.56 mg/dL Normal 0.55-1.02 [facility] Comment on above: Order Comment: 103-1 Result Comment: The validity of the calculated GFR GFRAA in patients over 70 years has not been determined. Clinical correlation is essential. Performed By: #### L 100.0500, L500.4100, L500.4050 #### [facility] [address] [place], [address] EST GFR - AA 143 mL/min Normal >60 [facility] Comment on above: Order Comment: -1 Result Comment: Afri can [place] GFR Calc Performed By: #### L 100.0500, L500.4100, L500.4050 #### [facility] [address] [place], [address] GAP 7 Normal 5-15 [facility] Comment on above: Order Comment: - Performed By: #### L 100.0500, L500.4100, L500.4050 #### [facility] [address] [place], [address] GFR/1.73 sq M.predicted among non-blacks MDRD (S/P/Bld) [Vol rate/Area] 118 mL/min/{1.73_m2} Normal >60 [facility] Comment on above: Order Comment: 103-1 Result Comment: Non- GFR Calc Performed By: #### L 100.0500, L500.4100, L500.4050 #### [facility] [address] [place], [address] Globulin (S) [Mass/Vol] 3.4 g/dL Normal 2.2-4.2 [facility] Comment on above: Order Comment: 103-1 Performed By: #### L 100.0500, L500.4100, L500.4050 #### [facility] [address] [place], [address] Glucose [Mass/Vol] 175 mg/dL High 74-106 [facility] Comment on above: Order Comment: 103-1 Result Comment: Fast ing Glucose result greater than or equal to 126 mg/dL suggests DIABETES MELLITUS per A.D.A. criteria. Performed By: #### L 100.0500, L500.4100, L500.4050 #### [facility] [address] [place], [address] Potassium [Moles/Vol] 3.8 mmol/L Normal 3.5-5.1 [facility] Comment on above: Order Comment: 103-1 Performed By: #### L 100.0500, L500.4100, L500.4050 #### [facility] [address] [place], [address] Sodium [Moles/Vol] 138 mmol/L Normal 136-145 [facility] Comment on above: Order Comment: 103-1 Performed By: #### L 100.0500, L500.4100, L500.4050 #### [facility] [address] [place] [place], [address] T PROT 6.3 g/dL Low 6.4-8.2 [facility] Comment on above: Order Comment: 103-1 Performed By: #### L 100.0500, L500.4100, L500.4050 #### [facility] [address] [place], [address] Urea nitrogen [Mass/Vol] 12 mg/dL Normal 7-18 [facility] Comment on above: Order Comment: 103-1 Performed By: #### L 100.0500, L500.4100, L500.4050 #### [facility] [address] [place], [address] Lipid Profileon 07-17-2024 Cholesterol [Mass/Vol] 146 mg/dL Normal 200 [facility] Comment on above: Order Comment: 103 Result Comment: <200 mg/dL Desirable 200-240 mg/dL Borderline >240 mg/dL High Risk Performed By: #### L 100.0500, L500.4100, L500.4050 #### [facility] [address] [place], [address] Cholesterol in HDL [Mass/Vol] 39 mg/dL Low [facility] Comment on above: Order Comment: 103 Result Comment: The drugs N-Acetylcysteine and Metamizole may falsely depress this assay. Reference Range HDL <40 mg/dL Low HDL Cholesterol HDL >or= 60 mg/dL High HDL Cholesterol Performed By: #### L 100.0500, L500.4100, L500.4050 #### [facility] [address] [place], [address] Cholesterol in LDL [Mass/Vol] 83 mg/dL Normal 0-130 [facility] Comment on above: Order Comment: - Performed By: #### L 100.0500, L500.4100, L500.4050 #### [facility] [address] [place], [address] Cholesterol in VLDL [Mass/Vol] 24 mg/dL Normal 5-40 [facility] Comment on above: Order Comment: 103- Performed By: #### L 100.0500, L500.4100, L500.4050 #### [facility] [address] [place], [address] Triglyceride [Mass/Vol] 122 mg/dL Normal [facility] Comment on above: Order Comment: 103- Result Comment: The drugs N-Acetylcysteine and Metamizole may falsely depress this assay. Serum Triglycerides Reference Interval Normal <150 mg/dL Borderline high 150 - 199 mg/dL High 200 - 499 mg/dL Very High > or = 500 mg/dL Performed By: #### L 100.0500, L500.4100, L500.4050 #### [facility] [place], [address] Laboratory - Chemistry and C hemistry - challengeon 01-27-2024 Glucose [Mass/Vol] 143 mg/dL High 70 - 100 mg/dL [facility] [employer] No Panel Informationon 01-26 Interpretation and review of laboratory results Abnormal [facility] Performed by: [facility], [address] [place] [address] CLIA ID: [id number] [facility] Radiology Study observation (narrative) [facility] Laboratory - Chemistry and C hemistry - challengeon 01-26-2024 Glucose [Mass/Vol] 101 mg/dL High 70 - 100 mg/dL [facility] Glucose [Mass/Vol] 111 mg/dL High 70 - 100 mg/dL [facility] Glucose [Mass/Vol] 102 mg/dL High 70 - 100 mg/dL [facility] No Panel Informationon 01-25 Interpretation and review of laboratory results Abnormal [facility] Performed by: [facility], [address] [place] [address] CLIA ID: [id number] [facility] Interpretation and review of laboratory results Abnormal [facility] Performed by: [facility], [address] [place] [address] CLIA ID: [id number] [facility] Interpretation and review of laboratory results Abnormal [facility] Performed by: [facility], [address] [place] [address] CLIA ID: [id number] [facility] Radiology Study observation (narrative) [facility] Radiology Study observation (narrative) [facility] Radiology Study observation (narrative) [facility] CBC W Auto Differential pane l (Bld)on 01-22-2024 Basophils (Bld) [#/Vol] 0.1 10*3/uL 0.0 - 0.2 10*3/uL [facility] Basophils/100 WBC (Bld) 0.5 % 0.0 - 2.0 % [facility] Eosinophils (Bld) [#/Vol] 0.1 10*3/uL 0.0 - 0.5 10*3/uL [facility] Eosinophils/100 WBC (Bld) 0.8 % 0.0 - 6.0 % [facility] Erythrocyte distribution width (RBC) [Ratio] 14.3 % 11.5 - 15.0 % [facility] Hematocrit (Bld) [Volume fraction] 35.6 % Male: 40.0-52.0 ; Female: 35.0-47.0 [facility] Hemoglobin (Bld) [Mass/Vol] 11.3 g/dL Low 11.7 - 18.0 g/dL [facility] Immature granulocytes (Bld) [#/Vol] 0.1 10*3/uL High NINF - 0.1 10*3/uL [facility] Immature granulocytes/100 WBC (Bld) 0.7 % 0.0 - 2.0 % [facility] Interpretation and review of laboratory results Abnormal [facility] Lymphocytes (Bld) [#/Vol] 1.4 10*3/uL 1.0 - 4.3 10*3/uL [facility] Lymphocytes/100 WBC (Bld) 14.3 % Low 15.0 - 45.0 % [facility] MCH (RBC) [Entitic mass] 27.5 pg 26.0 - 34.0 pg [facility] MCHC (RBC) [Mass/Vol] 31.7 % 30.5 - 36.0 % [facility] MCV (RBC) [Entitic vol] 86.6 fL 77.0 - 99.0 fL [facility] Monocytes (Bld) [#/Vol] 0.6 10*3/uL 0.0 - 0.9 10*3/uL [facility] Monocytes/100 WBC (Bld) 5.9 % 5.0 - 13.0 % [facility] Neutrophils (Bld) [#/Vol] 7.8 10*3/uL High 1.8 - 7.5 10*3/uL [facility] Neutrophils/100 WBC (Bld) 77.8 % 38.0 - 82.0 % [facility] Nucleated RBC/100 WBC (Bld) [Ratio] 0.0 % [facility] [employer] Platelet mean volume (Bld) [Entitic vol] 10.3 fL 9.0 - 12.7 fL [employer] Platelets (Bld) [#/Vol] 511 10*3/uL High 140 - 440 10*3/uL [employer] RBC (Bld) [#/Vol] 4.11 10*6/uL Male: 4.40-5.90; Female: 3.80-5.20 [employer] WBC (Bld) [#/Vol] 10.0 10*3/uL 3.6 - 10.7 10*3/uL [employer] CT Abdomen and Pelvis W cont rast [...] months Report Dictated on Electronically Signed By: Matthew Morgan MD Electronically Signed Date/Time: 01/22/2024 4:54 AM [facility] [employer] [facility] 1965 [id number] Exam Date/Time: 01/22/2024 04:15 Procedure: CT ABDOMEN [...] No evidence of acute fracture or dislocation. [facility] RADIOLOGY [facility] Matthew Morgan MD - 01/22/2024 Patient Name: WILL [...] months Report Dictated on Electronically Signed By: Matthew Morgan MD Electronically Signed Date/Time: 01/22/2024 4:54 AM EDT [facility] Radiology Study observation (narrative) [facility] [employer] CT Abdomen and Pelvis W cont rast IVOrdered By: Matthew Morgan on 01-22-2024 [facility] [employer] Work Phone: Comprehensive metabolic 1998 panelon 01-22-2024 Albumin [Mass/Vol] 4.2 g/dL 3.5 - 5.0 g/dL [facility] [employer] ALP [Catalytic activity/Vol] 121 U/L 38 - 126 U/L [facility] [employer] ALT [Catalytic activity/Vol] 32 U/L Male: 0-49 U/L; Female: 0-34 U/L [facility] [employer] Anion gap [Moles/Vol] 11 mmol/L 3 - 13 mmol/L [facility] [employer] AST [Catalytic activity/Vol] 26 U/L 15 - 46 U/L [facility] Bilirubin [Mass/Vol] 0.5 mg/dL 0.2 - 1 .3 mg/dL [facility] [employer] Calcium [Mass/Vol] 9.6 mg/dL 8.4 - 10. 4 mg/dL [facility] [employer] Chloride [Moles/Vol] 100 mmol/L 98 - 10 7 mmol/L [facility] CO2 [Moles/Vol] 25 mmol/L 22 - 30 mmol/L [facility] Creatinine [Mass/Vol] 0.61 mg/dL Male: 0.66-1.25 mg/dL; Female: 0.52-1.04 mg/dL [facility] GFR/1.73 sq M.predicted MDRD (S/P/Bld) [Vol rate/Area] - PINF [facility] Comment on above: Calculation based on the Chronic Kidney Disease Epidemiology Collaboration (CKD-EPI) equation refit without adjustment for race Glucose [Mass/Vol] 81 mg/dL 70 - 100 mg/dL [facility] Potassium [Moles/Vol] 4.0 mmol/L 3.5 - 5.1 mmol/L [facility] [employer] Protein [Mass/Vol] 7.5 g/dL 6.3 - 8.2 g/dL [facility] Sodium [Moles/Vol] 136 mmol/L 135 - 145 mmol/L [facility] Urea nitrogen [Mass/Vol] 13 mg/dL Male: 9-20 mg/dL; Female: 7-17 mg/dL [facility] Laboratory - Chemistry and C hemistry - challengeon 01-22-2024 Lactate [Moles/Vol] 0.7 mmol/L 0.7 - 2. 0 mmol/L [facility] Lipase [Catalytic activity/Vol] 41 U/L 23 - 300 U/L [facility] Lipase [Catalytic activity/V ol]on 01-22-2024 Interpretation and review of laboratory results Normal [facility] No Panel Informationon 01-21 Interpretation and review of laboratory results Normal [facility] Urinalysis complete panel (U )Ordered By: Erickson Olmedo on 01-22-2024 Bacteria LM.HPF (Urine sed) [#/Area] Few Abnormal Negative /HPF [facility] Bilirubin Ql (U) Negative Negative mg/dL [facility] Clarity (U) Clear Clear [facility] Color (U) Light Yellow Lt. Yellow [facility] Epithelial cells.squamous LM.HPF (Urine sed) [#/Area] 0-2 [facility] Glucose Ql (U) Normal Normal (<70) mg/dL [facility] Hemoglobin Ql (U) 1.0 mg/dL Abnormal Negative [facility] Interpretation and review of laboratory results Abnormal [facility] Ketones (U) [Mass/Vol] Negative Negat bernard mg/dL [facility] Leukocyte esterase Test strip Ql (U) 75 Abnormal Negative Kat/uL [facility] Mucus LM.HPF (Urine sed) [#/Area] Few Negative /LPF [facility] Nitrite Ql (U) Negative Negative [facility] pH (U) 8.0 [pH] 5.0 - 8.0 pH [facility] Protein (U) [Mass/Vol] 100 mg/dL Abnormal Negative [facility] RBC LM.HPF (Urine sed) [#/Area] 26-50 Abnormal [facility] Specific gravity (U) [Rel density] 1.013 1.005 - 1.030 [facility] Urobilinogen (U) [Mass/Vol] Normal Normal (0-1) mg/dL [facility] WBC LM.HPF (Urine sed) [#/Area] 6-10 Abnormal [facility] Basophil percentageOrdered B y: Jared Guzman on 01-20-2024 Chloride [Moles/Vol] 104 mmol/L 98-107 [facility] Glucose [Mass/Vol] 159 mg/dL 74-106 [facility] Comment on above: Fasting Glucose resu lt greater than or equal to 126 mg/dL suggests DIABETES MELLITUS per A.D.A. criteria. Hemoglobin (Bld) [Mass/Vol] 9.6 g/dL 12.0-15.0 [facility] Potassium [Moles/Vol] 4.2 mmol/L 3.5-5.1 [facility] Sodium [Moles/Vol] 137 mmol/L 136-145 [facility] WBC (Bld) [#/Vol] 7.7 10*3/uL 4.4-11.0 [facility] Determination of erythrocyte mean corpuscular volume (MCV)Ordered By: Jared Guzman on 01-20-2024 MCV (RBC) [Entitic vol] 88.3 fL 81-99 [facility] Erythrocyte distribution wid th ratioOrdered By: Jared Guzman on 01-20-2024 Erythrocyte distribution width (RBC) [Ratio] 14.5 % 11.6-14.6 [facility] Erythrocyte distribution wid th standard deviationOrdered By: Jared Guzman on 01-20-2024 Erythrocyte distribution width (RBC) [Entitic vol] 46.4 fL 35.1-43.9 [facility] Hematocrit Auto (Bld) [Volum e fraction]Ordered By: Jared Guzman on 01-20-2024 Hematocrit (Bld) [Volume fraction] 30.9 % 37-47 [facility] - Chemistry and C hemistry - challengeOrdered By: Jared Guzman on 01-20-2024 CO2 [Moles/Vol] 26.0 mmol/L 21.0-32.0 [facility] Urea nitrogen/Creatinine [Mass ratio] 17.5 mg/mg 10-20 [facility] - Hematology and Cell countsOrdered By: Jared Guzman on 01-20-2024 MCH (RBC) [Entitic mass] 27.4 pg 27.0-32.0 [facility] MCHC (RBC) [Mass/Vol] 31.1 g/dL 32-36 [facility] Platelet mean volume (Bld) [Entitic vol] 10.0 fL 6.2-12.0 [facility] Platelets (Bld) [#/Vol] 411 10*3/uL 150-450 [facility] No Panel InformationOrdered By: Jared Guzman on 01-20-2024 Estimated GFR (MDRD) Amer 95 mL/min >60 [facility] Comment on above: GFR Calc Estimated GFR (MDRD) Non-Af Amer 78 mL/min >60 [facility] Comment on above: Non- GFR Calc RBC Auto (Bld) [#/Vol]Ordere d By: Jared Guzman on 01-20-2024 RBC (Bld) [#/Vol] 3.50 10*6/uL 4.2-5.4 [facility] Serum or plasma calcium mauricio urement (mass/volume)Ordered By: Jared Guzman on 01-20-2024 Calcium [Mass/Vol] 8.8 mg/dL 8.5-10.1 [facility] Serum or plasma creatinine m easurement (mass/volume)Ordered By: Jared Guzman on 01-20-2024 Creatinine [Mass/Vol] 0.80 mg/dL 0.55-1.02 [facility] Comment on above: The validity of the calculated GFR & GFRAA in patients over 70 years has not been determined. Clinical correlation is essential. Serum or plasma urea nitroge n measurement (mass/volume)Ordered By: Jared Guzman on 01-20-2024 Urea nitrogen [Mass/Vol] 14 mg/dL 7-18 [facility] Thin prep Papanicolaou smear with manual screeningOrdered By: Jared Guzman on 01-20-2024 Thin prep Papanicolaou smear with manual screening 7 5-15 [facility] Basophil percentageOrdered B y: Jared Guzman on 01-17-2024 Bilirubin [Mass/Vol] 0.50 mg/dL 0.20-1.00 [facility] Comment on above: For patients on eltr ombopag therapy, use of Dimension Spray TBIL is not recommended. Chloride [Moles/Vol] 102 mmol/L 98-107 [facility] Glucose [Mass/Vol] 325 mg/dL 74-106 [facility] Comment on above: Glucose result great er than or equal to 200 mg/dLsuggests DIABETES MELLITUS per A.D.A. criteria. Hemoglobin (Bld) [Mass/Vol] 9.7 g/dL 12.0-15.0 [facility] Potassium [Moles/Vol] 4.4 mmol/L 3.5-5.1 [facility] Protein [Mass/Vol] 6.2 g/dL 6.4-8.2 [facility] Sodium [Moles/Vol] 134 mmol/L 136-145 [facility] WBC (Bld) [#/Vol] 7.1 10*3/uL 4.4-11.0 [facility] Determination of erythrocyte mean corpuscular volume (MCV)Ordered By: Jared Guzman on 01-17-2024 MCV (RBC) [Entitic vol] 88.0 fL 81-99 [facility] Erythrocyte distribution wid th ratioOrdered By: Jared Guzman on 01-17-2024 Erythrocyte distribution width (RBC) [Ratio] 14.2 % 11.6-14.6 [facility] Erythrocyte distribution wid th standard deviationOrdered By: Jared Guzman on 01-17-2024 Erythrocyte distribution width (RBC) [Entitic vol] 45.7 fL 35.1-43.9 [facility] Hematocrit Auto (Bld) [Volum e fraction]Ordered By: Jared Guzman on 01-17-2024 Hematocrit (Bld) [Volume fraction] 31.5 % 37-47 [facility] - Chemistry and C hemistry - challengeOrdered By: Jared Guzman on 01-17-2024 Albumin/Globulin [Mass ratio] 0.9 {ratio} 0.9-2.4 [facility] ALP [Catalytic activity/Vol] 142 U/L 45-117 [facility] ALT [Catalytic activity/Vol] 22 U/L 13-56 [facility] CO2 [Moles/Vol] 24.0 mmol/L 21.0-32.0 [facility] Globulin (S) [Mass/Vol] 3.3 g/dL 2.2-4.2 [facility] Urea nitrogen/Creatinine [Mass ratio] 19.2 mg/mg 10-20 [facility] - Hematology and Cell countsOrdered By: Jared Guzman on 01-17-2024 MCH (RBC) [Entitic mass] 27.1 pg 27.0-32.0 [facility] MCHC (RBC) [Mass/Vol] 30.8 g/dL 32-36 [facility] Platelet mean volume (Bld) [Entitic vol] 10.5 fL 6.2-12.0 [facility] Platelets (Bld) [#/Vol] 372 10*3/uL 150-450 [facility] No Panel InformationOrdered By: Jared Guzman on 01-17-2024 Estimated GFR (MDRD) Amer 85 mL/min >60 [facility] Comment on above: GFR Calc Estimated GFR (MDRD) Non-Af Amer 70 mL/min >60 [facility] Comment on above: Non- GFR Calc RBC Auto (Bld) [#/Vol]Ordere d By: Jared Guzman on 01-17-2024 RBC (Bld) [#/Vol] 3.58 10*6/uL 4.2-5.4 [facility] Serum or plasma calcium mauricio urement (mass/volume)Ordered By: Jared Guzman on 01-17-2024 Calcium [Mass/Vol] 8.6 mg/dL 8.5-10.1 [facility] Serum or plasma creatinine m easurement (mass/volume)Ordered By: Jared Guzman on 01-17-2024 Creatinine [Mass/Vol] 0.88 mg/dL 0.55-1.02 [facility] Comment on above: The validity of the calculated GFR & GFRAA in patients over 70 years has not been determined. Clinical correlation is essential. Serum or plasma urea nitroge n measurement (mass/volume)Ordered By: Jared Guzman on 01-17-2024 Urea nitrogen [Mass/Vol] 17 mg/dL 7-18 [facility] Thin prep Papanicolaou smear with manual screeningOrdered By: Jared Guzman on 01-17-2024 Thin prep Papanicolaou smear with manual screening 2.9 g/dL 3.2-5.0 [facility] Thin prep Papanicolaou smear with manual screening 13 U/L 15-37 [facility] Thin prep Papanicolaou smear with manual screening 8 5-15 [facility] Whole blood hemoglobin A1c/t otal hemoglobin ratio (mass fraction)Ordered By: Jared Guzman on 01-17-2024 HbA1c (Bld) [Mass fraction] 8.1 % 3.8-5.6 [facility] Comment on above: Normal < 5.7 % Predi abetic 5.7 - 6.4 % Diabetic >or= 6.5 % Please note range changes. Basophil percentageOrdered B y: Jared Guzman on 01-13-2024 Chloride [Moles/Vol] 107 mmol/L 98-107 [facility] Cholesterol [Mass/Vol] 147 mg/dL <200 [facility] Comment on above: <200 mg/dL Desirable 200-240 mg/dL Borderline >240 mg/dL High Risk Glucose [Mass/Vol] 72 mg/dL 74-106 [facility] Hemoglobin (Bld) [Mass/Vol] 9.4 g/dL 12.0-15.0 [facility] Potassium [Moles/Vol] 3.9 mmol/L 3.5-5.1 [facility] Sodium [Moles/Vol] 141 mmol/L 136-145 [facility] Triglyceride [Mass/Vol] 137 mg/dL <199 [facility] Comment on above: The drugs N-Acetylcy steine and Metamizole may falsely depress this assay.Serum Triglycerides Reference Interval Normal <150 mg/dL Borderline high 150 - 199 mg/dL High 200 - 499 mg/dL Very High > or = 500 mg/dL WBC (Bld) [#/Vol] 7.1 10*3/uL 4.4-11.0 [facility] Determination of erythrocyte mean corpuscular volume (MCV)Ordered By: Jared Guzman on 01-13-2024 MCV (RBC) [Entitic vol] 87.4 fL 81-99 [facility] Erythrocyte distribution wid th ratioOrdered By: Jared Guzman on 01-13-2024 Erythrocyte distribution width (RBC) [Ratio] 14.6 % 11.6-14.6 [facility] Erythrocyte distribution wid th standard deviationOrdered By: Jared Guzman on 01-13-2024 Erythrocyte distribution width (RBC) [Entitic vol] 46.7 fL 35.1-43.9 [facility] Hematocrit Auto (Bld) [Volum e fraction]Ordered By: Jared Guzman on 01-13-2024 Hematocrit (Bld) [Volume fraction] 29.9 % 37-47 [facility] Laboratory - Chemistry and C hemistry - challengeOrdered By: Jared Guzman on 01-13-2024 Cholesterol in HDL [Mass/Vol] 37 mg/dL >40 [facility] Comment on above: The drugs N-Acetylcy steine and Metamizole may falsely depress this assay. Reference Range HDL <40 mg/dL Low HDL Cholesterol HDL >or= 60 mg/dL High HDL Cholesterol Cholesterol in LDL [Mass/Vol] 83 mg/dL 0-130 [facility] CO2 [Moles/Vol] 26.0 mmol/L 21.0-32.0 [facility] Urea nitrogen/Creatinine [Mass ratio] 30.8 mg/mg 10-20 [facility] Laboratory - Hematology and Cell countsOrdered By: Jared Guzman on 01-13-2024 MCH (RBC) [Entitic mass] 27.5 pg 27.0-32.0 [facility] MCHC (RBC) [Mass/Vol] 31.4 g/dL 32-36 [facility] Platelet mean volume (Bld) [Entitic vol] 9.8 fL 6.2-12.0 [facility] Platelets (Bld) [#/Vol] 380 10*3/uL 150-450 [facility] No Panel InformationOrdered By: Jared Guzman on 01-13-2024 Estimated GFR (MDRD) Amer 129 mL/min >60 [facility] Comment on above: GFR Calc Estimated GFR (MDRD) Non-Af Amer 106 mL/min >60 [facility] Comment on above: Non- GFR Calc VLDL Cholesterol 27 mg/dL 5-40 [facility] RBC Auto (Bld) [#/Vol]Ordere d By: Jared Guzman on 01-13-2024 RBC (Bld) [#/Vol] 3.42 10*6/uL 4.2-5.4 [facility] Serum or plasma calcium mauricio urement (mass/volume)Ordered By: Jared Guzman on 01-13-2024 Calcium [Mass/Vol] 8.7 mg/dL 8.5-10.1 [facility] Serum or plasma creatinine m easurement (mass/volume)Ordered By: Jared Guzman on 01-13-2024 Creatinine [Mass/Vol] 0.62 mg/dL 0.55-1.02 [facility] Comment on above: The validity of the calculated GFR & GFRAA in patients over 70 years has not been determined. Clinical correlation is essential. Serum or plasma urea nitroge n measurement (mass/volume)Ordered By: Jared Guzman on 01-13-2024 Urea nitrogen [Mass/Vol] 19 mg/dL 7-18 [facility] Thin prep Papanicolaou smear with manual screeningOrdered By: Jared Guzman on 01-13-2024 Thin prep Papanicolaou smear with manual screening 8 5-15 [facility] Basophil percentageOrdered B y: Jared Guzman on 12-31-2023 Chloride [Moles/Vol] 101 mmol/L 98-107 [facility] Glucose [Mass/Vol] 87 mg/dL 74-106 [facility] Hemoglobin (Bld) [Mass/Vol] 10.1 g/dL 12.0-15.0 [facility] Potassium [Moles/Vol] 4.8 mmol/L 3.5-5.1 [facility] Sodium [Moles/Vol] 133 mmol/L 136-145 [facility] WBC (Bld) [#/Vol] 11.6 10*3/uL 4.4-11.0 [facility] Determination of erythrocyte mean corpuscular volume (MCV)Ordered By: Jared Guzman on 12-31-2023 MCV (RBC) [Entitic vol] 87.8 fL 81-99 [facility] Erythrocyte distribution wid th ratioOrdered By: Jared Guzman on 12-31-2023 Erythrocyte distribution width (RBC) [Ratio] 14.1 % 11.6-14.6 [facility] Erythrocyte distribution wid th standard deviationOrdered By: Jared Guzman on 12-31-2023 Erythrocyte distribution width (RBC) [Entitic vol] 45.6 fL 35.1-43.9 [facility] Hematocrit Auto (Bld) [Volum e fraction]Ordered By: Jared Guzman on 12-31-2023 Hematocrit (Bld) [Volume fraction] 32.5 % 37-47 [facility] Laboratory - Chemistry and C hemistry - challengeOrdered By: Jared Guzman on 12-31-2023 CO2 [Moles/Vol] 24.0 mmol/L 21.0-32.0 [facility] Urea nitrogen/Creatinine [Mass ratio] 12.1 mg/mg 10-20 [facility] - Hematology and Cell countsOrdered By: Jared Guzman on 12-31-2023 MCH (RBC) [Entitic mass] 27.3 pg 27.0-32.0 [facility] MCHC (RBC) [Mass/Vol] 31.1 g/dL 32-36 [facility] Platelet mean volume (Bld) [Entitic vol] 10.1 fL 6.2-12.0 [facility] Platelets (Bld) [#/Vol] 413 10*3/uL 150-450 [facility] No Panel InformationOrdered By: Jared Guzman on 12-31-2023 Estimated GFR (MDRD) Amer 16 mL/min >60 [facility] Comment on above: GFR Calc Estimated GFR (MDRD) Non-Af Amer 13 mL/min >60 [facility] Comment on above: Non- GFR Calc RBC Auto (Bld) [#/Vol]Ordere d By: Jared Guzman on 12-31-2023 RBC (Bld) [#/Vol] 3.70 10*6/uL 4.2-5.4 [facility] Serum or plasma calcium mauricio urement (mass/volume)Ordered By: Jared Guzman on 12-31-2023 Calcium [Mass/Vol] 8.9 mg/dL 8.5-10.1 [facility] Serum or plasma creatinine m easurement (mass/volume)Ordered By: Jared Guzman on 12-31-2023 Creatinine [Mass/Vol] 3.80 mg/dL 0.55-1.02 [facility] Comment on above: The validity of the calculated GFR & GFRAA in patients over 70 years has not been determined. Clinical correlation is essential. Serum or plasma urea nitroge n measurement (mass/volume)Ordered By: Jared Guzman on 12-31-2023 Urea nitrogen [Mass/Vol] 46 mg/dL 7-18 [facility] Thin prep Papanicolaou smear with manual screeningOrdered By: Jared Guzman on 12-31-2023 Thin prep Papanicolaou smear with manual screening 8 5-15 [facility] Basophil percentageOrdered B y: Jared Guzman on 12-30-2023 Chloride [Moles/Vol] 103 mmol/L 98-107 [facility] Glucose [Mass/Vol] 116 mg/dL 74-106 [facility] Comment on above: Fasting Glucose resu lt from 100 to 125 mg/dL suggests IMPAIRED HOMEOSTASIS per A.D.A. criteria. Hemoglobin (Bld) [Mass/Vol] 10.6 g/dL 12.0-15.0 [facility] Potassium [Moles/Vol] 4.4 mmol/L 3.5-5.1 [facility] Sodium [Moles/Vol] 133 mmol/L 136-145 [facility] WBC (Bld) [#/Vol] 13.1 10*3/uL 4.4-11.0 [facility] Determination of erythrocyte mean corpuscular volume (MCV)Ordered By: Jared Guzman on 12-30-2023 MCV (RBC) [Entitic vol] 86.8 fL 81-99 [facility] Erythrocyte distribution wid th ratioOrdered By: Jared Guzman on 12-30-2023 Erythrocyte distribution width (RBC) [Ratio] 13.6 % 11.6-14.6 [facility] Erythrocyte distribution wid th standard deviationOrdered By: Jared Guzman on 12-30-2023 Erythrocyte distribution width (RBC) [Entitic vol] 43.0 fL 35.1-43.9 [facility] Hematocrit Auto (Bld) [Volum e fraction]Ordered By: Jared Guzman on 12-30-2023 Hematocrit (Bld) [Volume fraction] 34.2 % 37-47 [facility] - Chemistry and C hemistry - challengeOrdered By: Jared Guzman on 12-30-2023 CO2 [Moles/Vol] 24.0 mmol/L 21.0-32.0 [facility] Urea nitrogen/Creatinine [Mass ratio] 19.3 mg/mg 10-20 [facility] - Hematology and Cell countsOrdered By: Jared Guzman on 12-30-2023 MCH (RBC) [Entitic mass] 26.9 pg 27.0-32.0 [facility] MCHC (RBC) [Mass/Vol] 31.0 g/dL 32-36 [facility] Platelet mean volume (Bld) [Entitic vol] 10.3 fL 6.2-12.0 [facility] Platelets (Bld) [#/Vol] 434 10*3/uL 150-450 [facility] No Panel InformationOrdered By: Jared Guzman on 12-30-2023 Estimated GFR (MDRD) Amer 42 mL/min >60 [facility] Comment on above: GFR Calc Estimated GFR (MDRD) Non-Af Amer 35 mL/min >60 [facility] Comment on above: Non- GFR Calc RBC Auto (Bld) [#/Vol]Ordere d By: Jared Guzman on 12-30-2023 RBC (Bld) [#/Vol] 3.94 10*6/uL 4.2-5.4 [facility] Serum or plasma calcium mauricio urement (mass/volume)Ordered By: Jared Guzman on 12-30-2023 Calcium [Mass/Vol] 9.4 mg/dL 8.5-10.1 [facility] Serum or plasma creatinine m easurement (mass/volume)Ordered By: Jared Guzman on 12-30-2023 Creatinine [Mass/Vol] 1.61 mg/dL 0.55-1.02 [facility] Comment on above: The validity of the calculated GFR & GFRAA in patients over 70 years has not been determined. Clinical correlation is essential. Serum or plasma urea nitroge n measurement (mass/volume)Ordered By: Jared Guzman on 12-30-2023 Urea nitrogen [Mass/Vol] 31 mg/dL 7-18 [facility] Thin prep Papanicolaou smear with manual screeningOrdered By: Jared Guzman on 12-30-2023 Thin prep Papanicolaou smear with manual screening 6 5-15 [facility] Basic metabolic 1998 panelon 12-29-2023 Anion gap [Moles/Vol] 8 mmol/L 3 - 13 mmol/L [facility] [employer] Calcium [Mass/Vol] 9.2 mg/dL 8.4 - 10. 4 mg/dL [facility] [employer] Chloride [Moles/Vol] 99 mmol/L 98 - 10 7 mmol/L [facility] [employer] CO2 [Moles/Vol] 21 mmol/L Low 22 - 30 mmol/L [facility] [employer] Creatinine [Mass/Vol] 0.70 mg/dL Male: 0.66-1.25 mg/dL; Female: 0.52-1.04 mg/dL [facility] [employer] GFR/1.73 sq M.predicted MDRD (S/P/Bld) [Vol rate/Area] - PINF [facility] Comment on above: Calculation based on the Chronic Kidney Disease Epidemiology Collaboration (CKD-EPI) equation refit without adjustment for race Glucose [Mass/Vol] 341 mg/dL High 70 - 100 mg/dL [facility] Interpretation and review of laboratory results Abnormal [facility] [employer] Potassium [Moles/Vol] 5.3 mmol/L High 3.5 - 5.1 mmol/L [facility] [employer] Sodium [Moles/Vol] 128 mmol/L Low 135 - 145 mmol/L [facility] [employer] Urea nitrogen [Mass/Vol] 28 mg/dL Male: 9-20 mg/dL; Female: 7-17 mg/dL [facility] Basic metabolic 1998 panelOr dered By: Abner Vieyra on 12-29-2023 Anion gap [Moles/Vol] 7 mmol/L 3 - 13 mmol/L [facility] Calcium [Mass/Vol] 9.2 mg/dL 8.4 - 10. 4 mg/dL [facility] [employer] Chloride [Moles/Vol] 99 mmol/L 98 - 10 7 mmol/L [facility] [employer] CO2 [Moles/Vol] 23 mmol/L 22 - 30 mmol/L [facility] Creatinine [Mass/Vol] 0.79 mg/dL Male: 0.66-1.25 mg/dL; Female: 0.52-1.04 mg/dL [facility] GFR/1.73 sq M.predicted MDRD (S/P/Bld) [Vol rate/Area] 87.4 mL/min/{1.73_m2} - PINF [facility] Comment on above: Calculation based on the Chronic Kidney Disease Epidemiology Collaboration (CKD-EPI) equation refit without adjustment for race Glucose [Mass/Vol] 284 mg/dL High 70 - 100 mg/dL [facility] Interpretation and review of laboratory results Abnormal [facility] Potassium [Moles/Vol] 5.7 mmol/L High 3.5 - 5.1 mmol/L [facility] Sodium [Moles/Vol] 129 mmol/L Low 135 - 145 mmol/L [facility] Urea nitrogen [Mass/Vol] 36 mg/dL Male: 9-20 mg/dL; Female: 7-17 mg/dL [facility] CBC W Auto Differential pane l (Bld)Ordered By: Laney Rader on 12-29-2023 Basophils (Bld) [#/Vol] 0.1 10*3/uL 0.0 - 0.2 10*3/uL [facility] Basophils/100 WBC (Bld) 0.8 % 0.0 - 2.0 % [facility] Eosinophils (Bld) [#/Vol] 0.1 10*3/uL 0.0 - 0.5 10*3/uL [facility] Eosinophils/100 WBC (Bld) 0.7 % Low 1.0 - 6.0 % [facility] Erythrocyte distribution width (RBC) [Ratio] 14.5 % 11.5 - 14.5 % [facility] Hematocrit (Bld) [Volume fraction] 35.9 % Male: 40.0-52.0 %; Female: 35.0-47.0 % [facility] Hemoglobin (Bld) [Mass/Vol] 11.8 g/dL 11.7 - 18.0 g/dL [facility] Interpretation and review of laboratory results Abnormal [facility] Lymphocytes (Bld) [#/Vol] 1.6 10*3/uL 1.0 - 4.3 10*3/uL [facility] Lymphocytes/100 WBC (Bld) 12.3 % Low 20.0 - 40.0 % [facility] MCH (RBC) [Entitic mass] 27.4 pg 26.0 - 34.0 pg [facility] MCHC (RBC) [Mass/Vol] 32.9 % 32.0 - 36.0 % [facility] MCV (RBC) [Entitic vol] 83.3 fL 80.0 - 98.0 fL [facility] Monocytes (Bld) [#/Vol] 0.6 10*3/uL 0.0 - 0.8 10*3/uL [facility] [employer] Monocytes/100 WBC (Bld) 4.9 % 2.0 - 10.0 % [facility] [employer] Neutrophils (Bld) [#/Vol] 10.4 10*3/uL High 1.8 - 7.0 10*3/uL [facility] Neutrophils/100 WBC (Bld) 81.3 % High 40.0 - 80.0 % [facility] [employer] Nucleated RBC/100 WBC (Bld) [Ratio] 0.0 % [facility] [employer] Platelet mean volume (Bld) [Entitic vol] 7.9 fL 7.4 - 12.4 fL [facility] [employer] Platelets (Bld) [#/Vol] 388 10*3/uL 140 - 440 10*3/uL [facility] [employer] RBC (Bld) [#/Vol] 4.31 10*6/uL Male: 4.40-5.90; Female: 3.80-5.20 [facility] [employer] WBC (Bld) [#/Vol] 12.8 10*3/uL High 3.6 - 10.7 10*3/uL [facility] Laboratory - Chemistry and C hemistry - challengeon 12-29-2023 Glucose [Mass/Vol] 319 mg/dL High 70 - 100 mg/dL [facility] [employer] Glucose [Mass/Vol] 346 mg/dL High 70 - 100 mg/dL [facility] [employer] Glucose [Mass/Vol] 279 mg/dL High 70 - 100 mg/dL [facility] [employer] Beta hydroxybutyrate [Mass/Vol] 6.84 mg/dL High 0.20 - 2.81 mg/dL [facility] [employer] No Panel Informationon 12-29 P [place] 40 degrees [facility] [employer] CA Interval 168 ms [facility] [employer] QRS Curlew -37 degrees [facility] [employer] QRSD Interval 117 ms [facility] [employer] QT Interval 414 ms [facility] [employer] QTC Interval 479 ms [facility] [employer] T Wave [place] 23 degrees [facility] [employer] Sinus rhythm Nonspecific IVCD with LAD Left ventricular hypertrophy Electronically Signed On 12-29-2023 06:52:01 EST by Edwin Bustos CV Edwin Cook MD - 12/29/2023 IMPRESSION: Sinus rhythm Nonspecific IVCD with LAD Left ventricular hypertrophy Electronically Signed On 12-29-2023 06:52:01 EST by Edwin Bustos [facility] Interpretation and review of laboratory results Abnormal [facility] Performed by: [facility], [address] [place] [address], [facility] [address] CLIA ID: [id number] [facility] Interpretation and review of laboratory results Abnormal [facility] Performed by: [facility], [address] [place] [address], [facility] [address] CLIA ID: [id number] [facility] Interpretation and review of laboratory results Abnormal [facility] Performed by: [facility], [address] [place] [address], [facility] [address] CLIA ID: [id number] [facility] Interpretation and review of laboratory results Abnormal [facility] Radiology Study observation (narrative) [facility] Radiology Study observation (narrative) [facility] Radiology Study observation (narrative) [facility] Vital signson 12-29-2023 Heart rate 80 /min bpm [facility] Stomach Views for gastric emptying solid phase W radionuclide Jacob 12-23-2023 Abnormally delayed gastric emptying following solid meal. Report Dictated on Electronically Signed By: Edwin Paz MD Electronically Signed Date/Time: 12/23/2023 12:06 PM EST [employer] Patient Name: WILL ALVARADO : 1965 [...] ingestion is between 19 and 52 percent. [facility] [employer] [facility] Edwin Paz MD - 12/23/2023 Patient Name: WILL JACINTO : 1965 [facility]#: [id number] Exam Date/Time: 12/23/2023 11:45 Procedure: NM GASTRIC [...] Electronically Signed Date/Time: 12/23/2023 12:06 PM EST [facility] Radiology Study observation (narrative) [facility] NM Stomach Views for gastric emptying solid phase W radionuclide POOrdered By: Edwin Paz on 12-23-2023 [facility] Basophil percentageOrdered B y: Jared Guzman on 12-22-2023 Chloride [Moles/Vol] 105 mmol/L 98-107 [facility] Glucose [Mass/Vol] 129 mg/dL 74-106 [facility] Comment on above: Fasting Glucose resu lt greater than or equal to 126 mg/dL suggests DIABETES MELLITUS per A.D.A. criteria. Hemoglobin (Bld) [Mass/Vol] 10.2 g/dL 12.0-15.0 [facility] Potassium [Moles/Vol] 4.8 mmol/L 3.5-5.1 [facility] Sodium [Moles/Vol] 136 mmol/L 136-145 [facility] WBC (Bld) [#/Vol] 9.4 10*3/uL 4.4-11.0 [facility] Determination of erythrocyte mean corpuscular volume (MCV)Ordered By: Jared Guzman on 12-22-2023 MCV (RBC) [Entitic vol] 85.8 fL 81-99 [facility] Erythrocyte distribution wid th ratioOrdered By: Jared Guzman on 12-22-2023 Erythrocyte distribution width (RBC) [Ratio] 13.6 % 11.6-14.6 [facility] Erythrocyte distribution wid th standard deviationOrdered By: Jared Guzman on 12-22-2023 Erythrocyte distribution width (RBC) [Entitic vol] 42.4 fL 35.1-43.9 [facility] Hematocrit Auto (Bld) [Volum e fraction]Ordered By: Jared Guzman on 12-22-2023 Hematocrit (Bld) [Volume fraction] 32.1 % 37-47 [facility] Laboratory - Chemistry and C hemistry - challengeOrdered By: Jared Guzman on 12-22-2023 CO2 [Moles/Vol] 25.0 mmol/L 21.0-32.0 [facility] Urea nitrogen/Creatinine [Mass ratio] 37.0 mg/mg 10-20 [facility] - Hematology and Cell countsOrdered By: Jared Guzman on 12-22-2023 MCH (RBC) [Entitic mass] 27.3 pg 27.0-32.0 [facility] MCHC (RBC) [Mass/Vol] 31.8 g/dL 32-36 [facility] Platelet mean volume (Bld) [Entitic vol] 9.9 fL 6.2-12.0 [facility] Platelets (Bld) [#/Vol] 393 10*3/uL 150-450 [facility] No Panel InformationOrdered By: Jared Guzman on 12-22-2023 Estimated GFR (MDRD) Amer 78 mL/min >60 [facility] Comment on above: GFR Calc Estimated GFR (MDRD) Non-Af Amer 65 mL/min >60 [facility] Comment on above: Non- GFR Calc RBC Auto (Bld) [#/Vol]Ordere d By: Jared Guzman on 12-22-2023 RBC (Bld) [#/Vol] 3.74 10*6/uL 4.2-5.4 [facility] Serum or plasma calcium mauricio urement (mass/volume)Ordered By: Jared Guzman on 12-22-2023 Calcium [Mass/Vol] 9.1 mg/dL 8.5-10.1 [facility] Serum or plasma creatinine m easurement (mass/volume)Ordered By: Jared Guzman on 12-22-2023 Creatinine [Mass/Vol] 0.95 mg/dL 0.55-1.02 [facility] Comment on above: The validity of the calculated GFR & GFRAA in patients over 70 years has not been determined. Clinical correlation is essential. Serum or plasma urea nitroge n measurement (mass/volume)Ordered By: Jared Guzman on 12-22-2023 Urea nitrogen [Mass/Vol] 35 mg/dL 7-18 [facility] Thin prep Papanicolaou smear with manual screeningOrdered By: Jared Guzman on 12-22-2023 Thin prep Papanicolaou smear with manual screening 6 5-15 [facility] CBC W Auto Differential pane l (Bld)Ordered By: Erickson Olmedo on 12-09-2023 Basophils (Bld) [#/Vol] 0.1 10*3/uL 0.0 - 0.2 10*3/uL [facility] [employer] Basophils/100 WBC (Bld) 0.6 % 0.0 - 2.0 % [facility] [employer] Eosinophils (Bld) [#/Vol] 0.0 10*3/uL 0.0 - 0.5 10*3/uL [facility] [employer] Eosinophils/100 WBC (Bld) 0.1 % Low 1.0 - 6.0 % [facility] [employer] Erythrocyte distribution width (RBC) [Ratio] 14.5 % 11.5 - 14.5 % [employer] Hematocrit (Bld) [Volume fraction] 36.0 % Male: 40.0-52.0 %; Female: 35.0-47.0 % [employer] Hemoglobin (Bld) [Mass/Vol] 12.1 g/dL 11.7 - 18.0 g/dL [facility] [employer] Interpretation and review of laboratory results Abnormal [employer] Lymphocytes (Bld) [#/Vol] 1.0 10*3/uL 1.0 - 4.3 10*3/uL [employer] Lymphocytes/100 WBC (Bld) 9.5 % Low 20.0 - 40.0 % [employer] [facility] MCH (RBC) [Entitic mass] 28.1 pg 26.0 - 34.0 pg [facility] MCHC (RBC) [Mass/Vol] 33.5 % 32.0 - 36.0 % [facility] MCV (RBC) [Entitic vol] 83.9 fL 80.0 - 98.0 fL [facility] Monocytes (Bld) [#/Vol] 0.5 10*3/uL 0.0 - 0.8 10*3/uL [facility] Monocytes/100 WBC (Bld) 4.8 % 2.0 - 10.0 % [facility] Neutrophils (Bld) [#/Vol] 9.1 10*3/uL High 1.8 - 7.0 10*3/uL [facility] Neutrophils/100 WBC (Bld) 85.0 % High 40.0 - 80.0 % [facility] Nucleated RBC/100 WBC (Bld) [Ratio] 0.0 % [facility] Platelet mean volume (Bld) [Entitic vol] 8.0 fL 7.4 - 12.4 fL [facility] Platelets (Bld) [#/Vol] 485 10*3/uL High 140 - 440 10*3/uL [facility] RBC (Bld) [#/Vol] 4.29 10*6/uL Male: 4.40-5.90; Female: 3.80-5.20 [facility] WBC (Bld) [#/Vol] 10.7 10*3/uL 3.6 - 10.7 10*3/uL [facility] Comprehensive metabolic 1998 panelon 12-09-2023 Albumin [Mass/Vol] 4.0 g/dL 3.5 - 5.0 g/dL [facility] ALP [Catalytic activity/Vol] 139 U/L High 38 - 126 U/L [facility] ALT [Catalytic activity/Vol] 29 U/L Male: 0-49 U/L; Female: 0-34 U/L [facility] Anion gap [Moles/Vol] 11 mmol/L 3 - 13 mmol/L [facility] AST [Catalytic activity/Vol] 25 U/L 15 - 46 U/L [facility] Bilirubin [Mass/Vol] 0.7 mg/dL 0.2 - 1 .3 mg/dL [facility] Calcium [Mass/Vol] 9.0 mg/dL 8.4 - 10. 4 mg/dL [facility] Chloride [Moles/Vol] 96 mmol/L Low 98 - 10 7 mmol/L [facility] CO2 [Moles/Vol] 24 mmol/L 22 - 30 mmol/L [facility] Creatinine [Mass/Vol] 0.76 mg/dL Male: 0.66-1.25 mg/dL; Female: 0.52-1.04 mg/dL [facility] GFR/1.73 sq M.predicted MDRD (S/P/Bld) [Vol rate/Area] - PINF [facility] Comment on above: Calculation based on the Chronic Kidney Disease Epidemiology Collaboration (CKD-EPI) equation refit without adjustment for race Glucose [Mass/Vol] 295 mg/dL High 70 - 100 mg/dL [facility] Interpretation and review of laboratory results Abnormal [facility] Potassium [Moles/Vol] 5.0 mmol/L 3.5 - 5.1 mmol/L [facility] Protein [Mass/Vol] 7.2 g/dL 6.3 - 8.2 g/dL [facility] Sodium [Moles/Vol] 132 mmol/L Low 135 - 145 mmol/L [facility] Urea nitrogen [Mass/Vol] 26 mg/dL Male: 9-20 mg/dL; Female: 7-17 mg/dL [facility] Laboratory - Chemistry and C hemistry - challengeon 12-09-2023 Troponin I.cardiac [Mass/Vol] ng/mL [facility] - 0.034 ng/mL [facility] Troponin I.cardiac [Mass/Vol] ng/mL [facility] - 0.034 ng/mL [facility] Beta hydroxybutyrate [Mass/Vol] 5.77 mg/dL High 0.20 - 2.81 mg/dL [facility] Lactate [Moles/Vol] 1.4 mmol/L 0.7 - 2. 0 mmol/L [facility] Lipase [Catalytic activity/Vol] 41 U/L 23 - 300 U/L [facility] Magnesium [Mass/Vol] 1.6 mg/dL 1.6 - 2 .3 mg/dL [facility] Base excess Calc (BldV) [Moles/Vol] -0.6000 mmol/L -3 - 3 mmol/L [facility] CO2 (BldV) [Partial pressure] 42.1 mm[Hg] [facility] HCO3 (Bld) [Moles/Vol] 24.7 mmol/L 23.0 - 27.0 mmol/L [facility] Oxygen (BldV) [Partial pressure] 34.1 mm[Hg] mm Hg [facility] pH (BldV) 7.377 [pH] 7.330 - 7.430 pH [facility] Laboratory - Microbiology an d Antimicrobial susceptibilityon 12-09-2023 FLUAV RNA YASIR+probe Ql (Resp) Not detected Not Detected [facility] FLUBV RNA YASIR+probe Ql (Resp) Not detected Not Detected [facility] RSV RNA YASIR+probe Ql (Resp) Not detected Not Detected [facility] SARS-CoV-2 (COVID-19) RNA YASIR+probe Ql (Resp) Not detected Not Detected [facility] SARS-CoV-2 (COVID-19) RNA YASIR+probe Ql (Unsp spec) Methodology: real-time, RT-PCR The SARS-CoV-2, Flu A/B, and RSV Combo assay is intended for in vitro diagnostic use under the FDA Emergency Use Authorization (EUA). This test has not been FDA cleared or approved. In compliance with this authorization, please visit www.fda.gov/media/055341 /download or www.fda.gov/media/362906 /download to access the applicable information sheets. [facility] No Panel Informationon 12-09 Interpretation and review of laboratory results Abnormal [facility] P [place]lew 35 degrees [facility] CA Interval 158 ms [facility] QRS [place] -33 degrees [facility] QRSD Interval 114 ms [facility] QT Interval 388 ms [facility] QTC Interval 468 ms [facility] T Wave [place] 27 degrees [facility] Caridad Evans MD - 12/09/2023 IMPRESSION: Sinus rhythm Abnormal R-wave progression, late transition Left ventricular hypertrophy No significant change compared to 08/17/2023 Electronically Signed On 12-09-2023 06:18:33 EST by Caridad Barnard [facility] Interpretation and review of laboratory results Normal [facility] Interpretation and review of laboratory results Normal [facility] FIO2 [facility] Performed by: Nati Vigil [facility], [address] [place] [address] [place] [address] CLIA ID: [id number] [facility] Radiology Study observation (narrative) [facility] SARS-CoV-2, Flu A/B, and RSV Comboon 12-09-2023 Interpretation and review of laboratory results Normal [facility] Troponin I.cardiac [Mass/Vol ]on 12-09-2023 Interpretation and review of laboratory results Normal [facility] Specimen slightly hemolyzed, interpret results with caution Patients with high levels of Biotin oral intake (ie >5 mg/day) may have falsely decreased Troponin levels. [facility] Interpretation and review of laboratory results Normal [facility] Patients with high levels of Biotin oral intake (ie >5 mg/day) may have falsely decreased Troponin levels. [facility] Urinalysis complete panel (U )Ordered By: Jackson Her on 12-09-2023 Bacteria LM.HPF (Urine sed) [#/Area] Few Abnormal Negative /HPF [facility] Bilirubin Ql (U) Negative Negative mg/dL [facility] Clarity (U) Clear Clear [facility] Color (U) Light Yellow Lt. Yellow [facility] Epithelial cells.squamous LM.HPF (Urine sed) [#/Area] 0-2 [facility] Glucose Ql (U) 500 mg/dL Abnormal Normal (<70) [facility] Hemoglobin Ql (U) 0.06 mg/dL Abnormal Negative [facility] Hyaline casts Auto (Urine sed) [#/Area] 0-2 Abnormal Negative /LPF [facility] Interpretation and review of laboratory results Abnormal [facility] Ketones (U) [Mass/Vol] 10 mg/dL Abnormal Negative [facility] Leukocyte esterase Test strip Ql (U) 25 Abnormal Negative Kat/uL [facility] Mucus LM.HPF (Urine sed) [#/Area] Few Negative /LPF [facility] Nitrite Ql (U) Negative Negative [facility] Non-Squamous Epithalial Cells, Urine 0-2 Abnormal Negative /HPF [facility] pH (U) 6.0 [pH] 5.0 - 8.0 pH [facility] Protein (U) [Mass/Vol] 300 mg/dL Abnormal Negative [facility] RBC LM.HPF (Urine sed) [#/Area] 3-5 Abnormal [facility] Specific gravity (U) [Rel density] 1.021 1.005 - 1.030 [facility] Urobilinogen (U) [Mass/Vol] Normal Normal (0-1) mg/dL [facility] WBC LM.HPF (Urine sed) [#/Area] 6-10 Abnormal [facility] Vital signson 12-09-2023 Heart rate 87 /min bpm [facility] Oxygen saturation in Venous blood 64.1 % [facility] Comment on above: Performed by CLIA ID : [id number] [place], [place] ?Device: [id number] Thermostat Maker ID: [id number] XR Chest Single viewon 12-09 Left basilar atelect asis Report Dictated on Electronically Signed By: Sergio Muniz MD Electronically Signed Date/Time: 12/09/2023 6:11 AM EST [facility] [employer] Patient Name: WILL ALVARADO : 1965 Exam Date/Time: 12/09/2023 06:09 Procedure: XR CHEST 1 VIEW Ordering Provider: EAVNS PRISCA Reason For Exam: cough PORTABLE CHEST CLINICAL INDICATION: Cough TECHNIQUE: Portable AP COMPARISON: 10/12/2023 FINDINGS: Exam quality: EKG leads obscure small portions of the chest. The heart and mediastinum are normal. Atelectasis at the left lung base. No consolidation. Costophrenic angles are sharp. Marked degenerative change of the thoracic spine, likely diffuse idiopathic skeletal hyperostosis. [facility] Sergio Muniz MD - 12/09/2023 Patient [...] Electronically Signed Date/Time: 12/09/2023 6:11 AM EST [facility] [employer] Radiology Study observation (narrative) [facility] XR Chest Single viewOrdered By: Sergio Muniz on 12-09-2023 [employer] Work Phone: Basophil percentageOrdered B y: Jared Guzman on 11-23-2023 Chloride [Moles/Vol] 106 mmol/L 98-107 [facility] Glucose [Mass/Vol] 212 mg/dL 74-106 [facility] Comment on above: Glucose result great er than or equal to 200 mg/dLsuggests DIABETES MELLITUS per A.D.A. criteria. Hemoglobin (Bld) [Mass/Vol] 10.5 g/dL 12.0-15.0 [facility] Potassium [Moles/Vol] 5.0 mmol/L 3.5-5.1 [facility] Sodium [Moles/Vol] 136 mmol/L 136-145 [facility] WBC (Bld) [#/Vol] 7.5 10*3/uL 4.4-11.0 [facility] Determination of erythrocyte mean corpuscular volume (MCV)Ordered By: Jared Guzman on 11-23-2023 MCV (RBC) [Entitic vol] 87.7 fL 81-99 [facility] Erythrocyte distribution wid th ratioOrdered By: Jared Guzman on 11-23-2023 Erythrocyte distribution width (RBC) [Ratio] 13.7 % 11.6-14.6 [facility] Erythrocyte distribution wid th standard deviationOrdered By: Jared Guzman on 11-23-2023 Erythrocyte distribution width (RBC) [Entitic vol] 43.8 fL 35.1-43.9 [facility] Hematocrit Auto (Bld) [Volum e fraction]Ordered By: Jared Guzman on 11-23-2023 Hematocrit (Bld) [Volume fraction] 33.4 % 37-47 [facility] Iron measurement (mass/mass) Ordered By: Jared Guzman on 01-16-2024 Iron (Unsp spec) [Mass/Mass] 53 ug/dL 50-170 [facility] Laboratory - Chemistry and C hemistry - challengeOrdered By: Jared Guzman on 11-23-2023 CO2 [Moles/Vol] 24.0 mmol/L 21.0-32.0 [facility] Cobalamin (Vitamin B12) [Mass/Vol] 298 pg/mL 211-911 [facility] Ferritin [Mass/Vol] 68 ng/mL 8-252 [facility] Urea nitrogen/Creatinine [Mass ratio] 26.1 mg/mg 10-20 [facility] Laboratory - Hematology and Cell countsOrdered By: Jared Guzman on 11-23-2023 MCH (RBC) [Entitic mass] 27.6 pg 27.0-32.0 [facility] MCHC (RBC) [Mass/Vol] 31.4 g/dL 32-36 [facility] Platelets (Bld) [#/Vol] 347 10*3/uL 150-450 [facility] No Panel InformationOrdered By: Jared Guzman on 11-23-2023 Estimated GFR (MDRD) Amer 94 mL/min >60 [facility] Comment on above: GFR Calc Estimated GFR (MDRD) Non-Af Amer 78 mL/min >60 [facility] Comment on above: Non- GFR Calc Total Iron Binding Capacity 274 ug/dL 250-450 [facility] Platelet mean volume Miquel-Ec ker (Bld) [Entitic vol]Ordered By: Jared Guzman on 11-23-2023 Platelet mean volume (Bld) [Entitic vol] 10.4 fL 6.2-12.0 [facility] RBC Auto (Bld) [#/Vol]Ordere d By: Jared Guzman on 11-23-2023 RBC (Bld) [#/Vol] 3.81 10*6/uL 4.2-5.4 [facility] Serum mitochondria antibody detectionOrdered By: Jared Guzman on 11-23-2023 Mitochondria Ab Ql (S) <20.0 Units 0.0-20.0 [facility] Comment on above: Negative 0.0 - 20.0 Equivocal 20.1 - 24.9 Positive >24.9Mitochondrial (M2) Antibodies are found in 90-96% ofpatients with primary biliary cirrhosis.Performed at: [facility] [address] [id number] Director: Kb Lopez PhD, Phone: [phone] Serum or plasma IgG measurem ent (mass/volume)Ordered By: Jared Guzman on 11-23-2023 IgG [Mass/Vol] 622 mg/dL [phone] [facility] Comment on above: Performed at: [facility] [address] [id number] Director: Kb Lopez PhD, Phone: [phone] Serum or plasma bone alkalin e phosphatase/total alkaline phosphatase ratio (catalyticOrdered By: Jared Guzman on 11-23-2023 ALP Bone [Catalytic fraction] 31 % 14-68 [facility] Serum or plasma calcium mauricio urement (mass/volume)Ordered By: Jared Guzman on 11-23-2023 Calcium [Mass/Vol] 9.0 mg/dL 8.5-10.1 [facility] Serum or plasma creatinine m easurement (mass/volume)Ordered By: Jared Guzman on 11-23-2023 Creatinine [Mass/Vol] 0.80 mg/dL 0.55-1.02 [facility] Comment on above: The validity of the calculated GFR & GFRAA in patients over 70 years has not been determined. Clinical correlation is essential. Serum or plasma intestinal a lkaline phosphatase/total alkaline phosphatase ratio (catOrdered By: Jared Guzman on 11-23-2023 ALP Intest [Catalytic fraction] 12 % 0-18 [facility] Serum or plasma liver alkali ne phosphatase/total alkaline phosphatase ratio (catalytiOrdered By: Jared Guzman on 11-23-2023 ALP Liver [Catalytic fraction] 57 % 18-85 [facility] Serum or plasma urea nitroge n measurement (mass/volume)Ordered By: Jared Guzman on 11-23-2023 Urea nitrogen [Mass/Vol] 21 mg/dL 7-18 [facility] Thin prep Papanicolaou smear with manual screeningOrdered By: Jared Guzman on 11-23-2023 Thin prep Papanicolaou smear with manual screening 6 5-15 [facility] Thin prep Papanicolaou smear with manual screening 127 IU/L 44-121 [facility] CNPNon 11-22-2023 CNPN Telephone (GSTNOR) -------- WILL JACINTO ([id number]) 1965 F Date Time Provider Department 11/22/23 [...] Silva MA 11/22/2023 3:29 PM Signed Nurse Herron advised lab orders faxed to [phone]. Allergies As of Date: 11/22/2023 (No Known Allergies) Date Reviewed: 11/17/2023 Reviewed by: Elda Reaves PA-C - Fully Assessed Reason for Visit: Results [95] Primary Visit Diagnosis:Anemia, unspecified type [D64.9] Other Visit Diagnosis:Elevated alkaline phosphatase level [R74.8] Order(s):ALK PHOS ISOENZYM BL [SQALKISO] Order #: [id number] FUTURE MITOCHONDRIAL M2 IGG SERUM [SQMITOS] Order #: [id number] FUTURE IRON + TIBC [SQIRON] Order #: [id number] FUTURE FERRITIN BLD [SQFERR] Order #: [id number] FUTURE VITAMIN B12 BLOOD [SQB12] Order #: [id number] FUTURE Prescriptions as of 11/22/2023 - atorvastatin [...] Of Date: 11/22/2023 (None) Encounter Status:Closed by AUSTIN ZARCO BELIA on 11/22/23 Normal [facility] Absolute lymphocyte countOrd ered By: Jared Guzman on 11-18-2023 Lymphocytes Auto (Unsp spec) [#/Vol] 2.16 10*3/uL 0.83-4.51 [facility] Basophil percentageOrdered B y: Jared Guzman on 11-18-2023 Basophils/100 WBC (Bld) 0.8 % 0-1 [facility] Bilirubin [Mass/Vol] 0.40 mg/dL 0.20-1.00 [facility] Comment on above: For patients on eltr ombopag therapy, use of Dimension Spray TBIL is not recommended. Chloride [Moles/Vol] 104 mmol/L 98-107 [facility] Eosinophils/100 WBC (Bld) 2.3 % 0-5 [facility] Glucose [Mass/Vol] 211 mg/dL 74-106 [facility] Comment on above: Glucose result great er than or equal to 200 mg/dLsuggests DIABETES MELLITUS per A.D.A. criteria. Neutrophils (Bld) [#/Vol] 5.2 10*3/uL 2.0-7.7 [facility] Neutrophils/100 WBC (Bld) 62.4 % 47-70 [facility] Potassium [Moles/Vol] 4.9 mmol/L 3.5-5.1 [facility] Protein [Mass/Vol] 6.3 g/dL 6.4-8.2 [facility] Sodium [Moles/Vol] 136 mmol/L 136-145 [facility] WBC (Bld) [#/Vol] 8.4 10*3/uL 4.4-11.0 [facility] Blood erythrocytes count (nu mber/volume)Ordered By: Jared Guzman on 11-18-2023 RBC (Bld) [#/Vol] 3.93 10*6/uL 4.2-5.4 [facility] Blood hemoglobin measurement (mass/volume)Ordered By: Jared Guzman on 11-18-2023 Hemoglobin (Bld) [Mass/Vol] 10.7 g/dL 12.0-15.0 [facility] Blood lymphocytes/100 leukoc ytesOrdered By: Jared Guzman on 11-18-2023 Lymphocytes/100 WBC (Bld) 25.7 % 19-41 [facility] Blood monocytes/100 leukocyt esOrdered By: Jared Guzman on 11-18-2023 Monocytes/100 WBC (Bld) 7.5 % 0-10 [facility] Blood platelet mean volumeOr dered By: Jared Guzman on 11-18-2023 Platelet mean volume (Bld) [Entitic vol] 10.1 fL 6.2-12.0 [facility] Determination of erythrocyte mean corpuscular volume (MCV)Ordered By: Jared Guzman on 11-18-2023 MCV (RBC) [Entitic vol] 88.5 fL 81-99 [facility] Hematocrit Auto (Bld) [Volum e fraction]Ordered By: Jared Guzman on 11-18-2023 Hematocrit (Bld) [Volume fraction] 34.8 % 37-47 [facility] Laboratory - Chemistry and C hemistry - challengeOrdered By: Jared Guzman on 11-18-2023 ALP [Catalytic activity/Vol] 155 U/L 45-117 [facility] ALT [Catalytic activity/Vol] 30 U/L 13-56 [facility] CO2 [Moles/Vol] 24.0 mmol/L 21.0-32.0 [facility] Globulin (S) [Mass/Vol] 3.5 g/dL 2.2-4.2 [facility] Lipase [Catalytic activity/Vol] 22 U/L 13-75 [facility] Comment on above: Please note:LIPASE r evised reference range effective 23. New Lipase methodology. Expected to produce lower values than the previous assay method. NEW Reference Range: 13 - 75 U/L Urea nitrogen/Creatinine [Mass ratio] 29.0 mg/mg 10-20 [facility] Laboratory - Hematology and Cell countsOrdered By: Jared Guzman on 01-11-2024 Erythrocyte distribution width (RBC) [Entitic vol] 44.7 fL 35.1-43.9 [facility] Erythrocyte distribution width (RBC) [Ratio] 13.8 % 11.6-14.6 [facility] Immature granulocytes/100 WBC (Bld) 1.300 % 0.0-0.9 [facility] Comment on above: IG% - Immature Granu locytes (promyelocytes, myelocytes and metamyelocytes) > 1% indicates that a LEFT SHIFT is Present. MCH (RBC) [Entitic mass] 27.2 pg 27.0-32.0 [facility] Nucleated RBC/100 WBC (Bld) [Ratio] 0 % 0-5 [facility] MCHC Auto (RBC) [Mass/Vol]Or dered By: Jared Guzman on 11-18-2023 MCHC (RBC) [Mass/Vol] 30.7 g/dL 32-36 [facility] No Panel InformationOrdered By: Jared Guzman on 11-18-2023 Endomysial IgA Antibody Negative Negative [facility] Estimated GFR (MDRD) Amer 87 mL/min >60 [facility] Comment on above: GFR Calc Estimated GFR (MDRD) Non-Af Amer 72 mL/min >60 [facility] Comment on above: Non- GFR Calc Platelets bldOrdered By: Mike Guzman on 11-18-2023 Platelets (Bld) [#/Vol] 340 10*3/uL 150-450 [facility] Serum IgA measurement (units /volume)Ordered By: Jared Guzman on 11-18-2023 IgA Qn (S) 224 mg/dL 87-352 [facility] Comment on above: Performed at: [facility] [employer] [address] [id number] Director: Kb Lopez PhD, Phone: [phone] Serum or plasma albumin mauricio urement (mass/volume)Ordered By: Jared Guzman on 11-18-2023 Albumin [Mass/Vol] 2.8 g/dL 3.2-5.0 [facility] Serum or plasma albumin/glob ulin mass ratioOrdered By: Jared Guzman on 11-18-2023 Albumin/Globulin [Mass ratio] 0.8 {ratio} 0.9-2.4 [facility] Serum or plasma calcium mauricio urement (mass/volume)Ordered By: Jared Guzman on 11-18-2023 Calcium [Mass/Vol] 9.2 mg/dL 8.5-10.1 [facility] Serum or plasma creatinine m easurement (mass/volume)Ordered By: Jared Guzman on 11-18-2023 Creatinine [Mass/Vol] 0.86 mg/dL 0.55-1.02 [facility] Comment on above: The validity of the calculated GFR & GFRAA in patients over 70 years has not been determined. Clinical correlation is essential. Serum or plasma urea nitroge n measurement (mass/volume)Ordered By: Jared Guzman on 11-18-2023 Urea nitrogen [Mass/Vol] 25 mg/dL 7-18 [facility] Serum tissue transglutaminas e IgA antibody assay (units/volume)Ordered By: Jared Guzman on 11-18-2023 tTG IgA Qn (S) <2 U/mL 0-3 [facility] Comment on above: Negative 0 - 3 Weak Positive 4 - 10 Positive >10 Tissue Transglutaminase (tTG) has been identified as the endomysial antigen. Studies have demonstr- ated that endomysial IgA antibodies have over 99% specificity for gluten sensitive enteropathy. Thin prep Papanicolaou smear with manual screeningOrdered By: Jared Guzman on 11-18-2023 Thin prep Papanicolaou smear with manual screening 11 U/L 15-37 [facility] Thin prep Papanicolaou smear with manual screening 8 5-15 [facility] CNOVon 11-17-2023 CNOV Office Visit (GSTNOR ) -------- WILL JACINTO ([id number]) 1965 F Date Time Provider Department 11/17/23 9:40 AM ELDA REAVES GSTNOR During your visit today, we recorded the following information about you: Pulse Blood pressure 77/minute 124/58 Elda Reaves PA-C 11/17/2023 10:00 AM Signed CHIEF COMPLAINT: Patient presents with: Nausea AND Vomiting HPI: Resident at [facility], SNF and rehab. Will Jacinto is a 58 year old adult with PMHx positive for anxiety, bipolar, HTN, HLD, DM II who presents for Nausea AND Vomiting. On Protonix [address] [facility] admission 2/2 complications from DM, hypoglycemia, altered [...] (more content not included)... Normal [facility] Absolute lymphocyte countOrd ered By: Jared Guzman on 10-26-2023 Lymphocytes Auto (Unsp spec) [#/Vol] 1.95 10*3/uL 0.83-4.51 [facility] Basophil percentageOrdered B y: Jared Guzman on 10-26-2023 Basophils/100 WBC (Bld) 0.5 % 0-1 [facility] Chloride [Moles/Vol] 107 mmol/L 98-107 [facility] Eosinophils/100 WBC (Bld) 3.4 % 0-5 [facility] [facility] Glucose [Mass/Vol] 279 mg/dL 74-106 [facility] Comment on above: Glucose result great er than or equal to 200 mg/dLsuggests DIABETES MELLITUS per A.D.A. criteria. Neutrophils (Bld) [#/Vol] 3.6 10*3/uL 2.0-7.7 [facility] Neutrophils/100 WBC (Bld) 57.8 % 47-70 [facility] Potassium [Moles/Vol] 4.9 mmol/L 3.5-5.1 [facility] Sodium [Moles/Vol] 138 mmol/L 136-145 [facility] WBC (Bld) [#/Vol] 6.2 10*3/uL 4.4-11.0 [facility] Blood erythrocytes count (nu mber/volume)Ordered By: Jared Guzman on 10-26-2023 RBC (Bld) [#/Vol] 3.47 10*6/uL 4.2-5.4 [facility] Blood hemoglobin measurement (mass/volume)Ordered By: Jared Guzman on 10-26-2023 Hemoglobin (Bld) [Mass/Vol] 9.6 g/dL 12.0-15.0 [facility] Blood lymphocytes/100 leukoc ytesOrdered By: Jared Guzman on 10-26-2023 Lymphocytes/100 WBC (Bld) 31.3 % 19-41 [facility] Blood monocytes/100 leukocyt esOrdered By: Jared Guzman on 10-26-2023 Monocytes/100 WBC (Bld) 6.4 % 0-10 [facility] Blood platelet mean volumeOr dered By: Jared Guzman on 10-26-2023 Platelet mean volume (Bld) [Entitic vol] 10.3 fL 6.2-12.0 [facility] Determination of erythrocyte mean corpuscular volume (MCV)Ordered By: Jared Guzman on 10-26-2023 MCV (RBC) [Entitic vol] 89.6 fL 81-99 [facility] Hematocrit Auto (Bld) [Volum e fraction]Ordered By: Jared Guzman on 10-26-2023 Hematocrit (Bld) [Volume fraction] 31.1 % 37-47 [facility] Laboratory - Chemistry and C hemistry - challengeOrdered By: Jared Guzman on 10-26-2023 CO2 [Moles/Vol] 25.0 mmol/L 21.0-32.0 [facility] Urea nitrogen/Creatinine [Mass ratio] 26.6 mg/mg 10-20 [facility] Laboratory - Hematology and Cell countsOrdered By: Jared Guzman on 10-26-2023 Erythrocyte distribution width (RBC) [Entitic vol] 47.2 fL 35.1-43.9 [facility] Erythrocyte distribution width (RBC) [Ratio] 14.6 % 11.6-14.6 [facility] Immature granulocytes/100 WBC (Bld) 0.600 % 0.0-0.9 [facility] Comment on above: IG% - Immature Granu locytes (promyelocytes, myelocytes and metamyelocytes) > 1% indicates that a LEFT SHIFT is Present. MCH (RBC) [Entitic mass] 27.7 pg 27.0-32.0 [facility] Nucleated RBC/100 WBC (Bld) [Ratio] 0 % 0-5 [facility] MCHC Auto (RBC) [Mass/Vol]Or dered By: Jared Guzman on 10-26-2023 MCHC (RBC) [Mass/Vol] 30.9 g/dL 32-36 [facility] No Panel InformationOrdered By: Jared Guzamn on 10-26-2023 Estimated GFR (MDRD) Amer 87 mL/min >60 [facility] Comment on above: GFR Calc Estimated GFR (MDRD) Non-Af Amer 72 mL/min >60 [facility] Comment on above: Non- GFR Calc Platelets bldOrdered By: Pet santiago Guzman on 10-26-2023 Platelets (Bld) [#/Vol] 355 10*3/uL 150-450 [facility] Serum or plasma calcium mauricio urement (mass/volume)Ordered By: Jared Guzman on 10-26-2023 Calcium [Mass/Vol] 9.0 mg/dL 8.5-10.1 [facility] Serum or plasma creatinine m easurement (mass/volume)Ordered By: Jared Guzman on 10-26-2023 Creatinine [Mass/Vol] 0.87 mg/dL 0.55-1.02 [facility] Comment on above: The validity of the calculated GFR & GFRAA in patients over 70 years has not been determined. Clinical correlation is essential. Serum or plasma urea nitroge n measurement (mass/volume)Ordered By: Jared Guzman on 10-26-2023 Urea nitrogen [Mass/Vol] 23 mg/dL 7-18 [facility] Thin prep Papanicolaou smear with manual screeningOrdered By: Jared Guzman on 10-26-2023 Thin prep Papanicolaou smear with manual screening 6 5-15 [facility] Laboratory - Chemistry and C hemistry - challengeon 10-16-2023 Glucose [Mass/Vol] 289 mg/dL High 70 - 100 mg/dL [facility] [employer] Glucose [Mass/Vol] 346 mg/dL High 70 - 100 mg/dL [facility] [employer] Glucose [Mass/Vol] 304 mg/dL High 70 - 100 mg/dL [facility] Glucose [Mass/Vol] 312 mg/dL High 70 - 100 mg/dL [facility] No Panel Informationon 10-16 Interpretation and review of laboratory results Abnormal [facility] Interpretation and review of laboratory results Abnormal [facility] Interpretation and review of laboratory results Abnormal [facility] Interpretation and review of laboratory results Abnormal [facility] Glucose (Bld) [Mass/Vol]Orde red By: Eva Dalal on 10-15-2023 Glucose [Mass/Vol] 473 mg/dL Critically high 70 - 1 00 mg/dL [facility] Interpretation and review of laboratory results Abnormal [facility] Glucose (Bld) [Mass/Vol]Orde red By: Diane Islas on 10-15-2023 Glucose [Mass/Vol] 528 mg/dL Critically high 70 - 1 00 mg/dL [facility] Interpretation and review of laboratory results Abnormal [facility] Laboratory - Chemistry and C hemistry - challengeon 10-15-2023 Glucose [Mass/Vol] 262 mg/dL High 70 - 100 mg/dL [facility] Glucose [Mass/Vol] 289 mg/dL High 70 - 100 mg/dL [facility] Glucose [Mass/Vol] mg/dL High 70 - 100 mg/dL [facility] Glucose [Mass/Vol] mg/dL High 70 - 100 mg/dL [facility] No Panel Informationon 10-15 Interpretation and review of laboratory results Abnormal [facility] Interpretation and review of laboratory results Abnormal [facility] Interpretation and review of laboratory results Abnormal [facility] Interpretation and review of laboratory results Abnormal [facility] Bacteria identified Cx Nom ( Bld)on 10-14-2023 Interpretation and review of laboratory results Normal [facility] Basic metabolic 1998 panelon 10-14-2023 Anion gap [Moles/Vol] 7 mmol/L 3 - 13 mmol/L [facility] Calcium [Mass/Vol] 8.8 mg/dL 8.4 - 10. 4 mg/dL [facility] Chloride [Moles/Vol] 102 mmol/L 98 - 10 7 mmol/L [facility] CO2 [Moles/Vol] 25 mmol/L 22 - 30 mmol/L [facility] Creatinine [Mass/Vol] 0.98 mg/dL Male: 0.66-1.25 mg/dL; Female: 0.52-1.04 mg/dL [facility] GFR/1.73 sq M.predicted MDRD (S/P/Bld) [Vol rate/Area] 67.9 mL/min/{1.73_m2} - PINF [facility] Glucose [Mass/Vol] 250 mg/dL High 70 - 100 mg/dL [facility] Interpretation and review of laboratory results Abnormal [facility] Potassium [Moles/Vol] 3.9 mmol/L 3.5 - 5.1 mmol/L [facility] Sodium [Moles/Vol] 134 mmol/L Low 135 - 145 mmol/L [facility] Urea nitrogen [Mass/Vol] 35 mg/dL Male: 9-20 mg/dL; Female: 7-17 mg/dL [facility] Laboratory - Chemistry and C hemistry - challengeon 10-14-2023 Glucose [Mass/Vol] 305 mg/dL High 70 - 100 mg/dL [facility] Glucose [Mass/Vol] 338 mg/dL High 70 - 100 mg/dL [facility] Glucose [Mass/Vol] 360 mg/dL High 70 - 100 mg/dL [facility] Glucose [Mass/Vol] 268 mg/dL High 70 - 100 mg/dL [facility] Glucose [Mass/Vol] 235 mg/dL High 70 - 100 mg/dL [facility] Laboratory - Microbiology an d Antimicrobial susceptibilityon 10-14-2023 Bacteria identified Cx Nom (Bld) No growth at 5 days [facility] No Panel Informationon 10-14 Interpretation and review of laboratory results Abnormal [facility] Interpretation and review of laboratory results Abnormal [facility] Interpretation and review of laboratory results Abnormal [facility] Interpretation and review of laboratory results Abnormal [facility] Interpretation and review of laboratory results Abnormal [facility] Basic metabolic 1998 panelon 10-13-2023 Anion gap [Moles/Vol] 10 mmol/L 3 - 13 mmol/L [facility] Calcium [Mass/Vol] 8.5 mg/dL 8.4 - 10. 4 mg/dL [facility] Chloride [Moles/Vol] 95 mmol/L Low 98 - 10 7 mmol/L [facility] CO2 [Moles/Vol] 24 mmol/L 22 - 30 mmol/L [facility] Creatinine [Mass/Vol] 1.28 mg/dL Male: 0.66-1.25 mg/dL; Female: 0.52-1.04 mg/dL [facility] GFR/1.73 sq M.predicted MDRD (S/P/Bld) [Vol rate/Area] 49.3 mL/min/{1.73_m2} Low - PINF [facility] Glucose [Mass/Vol] 383 mg/dL High 70 - 100 mg/dL [facility] Interpretation and review of laboratory results Abnormal [facility] Potassium [Moles/Vol] 3.8 mmol/L 3.5 - 5.1 mmol/L [facility] Sodium [Moles/Vol] 129 mmol/L Low 135 - 145 mmol/L [facility] Urea nitrogen [Mass/Vol] 44 mg/dL Male: 9-20 mg/dL; Female: 7-17 mg/dL [facility] CBC panel Auto (Bld)on 10-13 Erythrocyte distribution width (RBC) [Ratio] 14.7 % High 11.5 - 14.5 % [facility] Hematocrit (Bld) [Volume fraction] 31.7 % Male: 40.0-52.0 %; Female: 35.0-47.0 % [facility] Hemoglobin (Bld) [Mass/Vol] 10.5 g/dL Low 11.7 - 18.0 g/dL [facility] Interpretation and review of laboratory results Abnormal [facility] MCH (RBC) [Entitic mass] 28.1 pg 26.0 - 34.0 pg [facility] MCHC (RBC) [Mass/Vol] 33.1 % 32.0 - 36.0 % [facility] MCV (RBC) [Entitic vol] 84.9 fL 80.0 - 98.0 fL [facility] Platelet mean volume (Bld) [Entitic vol] 7.4 fL 7.4 - 12.4 fL [facility] Platelets (Bld) [#/Vol] 324 10*3/uL 140 - 440 10*3/uL [facility] RBC (Bld) [#/Vol] 3.73 10*6/uL Male: 4.40-5.90; Female: 3.80-5.20 [facility] WBC (Bld) [#/Vol] 9.1 10*3/uL 3.6 - 10.7 10*3/uL [facility] Laboratory - Chemistry and C hemistry - challengeon 10-13-2023 Glucose [Mass/Vol] 232 mg/dL High 70 - 100 mg/dL [facility] Glucose [Mass/Vol] 243 mg/dL High 70 - 100 mg/dL [facility] Glucose [Mass/Vol] 241 mg/dL High 70 - 100 mg/dL [facility] Glucose [Mass/Vol] 311 mg/dL High 70 - 100 mg/dL [facility] Glucose [Mass/Vol] 446 mg/dL High 70 - 100 mg/dL [facility] Glucose [Mass/Vol] 435 mg/dL High 70 - 100 mg/dL [facility] Magnesium [Mass/Vol] 1.7 mg/dL 1.6 - 2 .3 mg/dL [facility] Magnesium [Mass/Vol]on 10-13 Interpretation and review of laboratory results Normal [facility] No Panel Informationon 10-13 Interpretation and review of laboratory results Abnormal [facility] Interpretation and review of laboratory results Abnormal [facility] Interpretation and review of laboratory results Abnormal [facility] Interpretation and review of laboratory results Abnormal [facility] Interpretation and review of laboratory results Abnormal [facility] Interpretation and review of laboratory results Abnormal [facility] Bacteria identified Cx Nom ( Bld)on 10-12-2023 Interpretation and review of laboratory results Normal [facility] Basic metabolic 1998 panelon 10-12-2023 Anion gap [Moles/Vol] 10 mmol/L 3 - 13 mmol/L [facility] Calcium [Mass/Vol] 9.4 mg/dL 8.4 - 10. 4 mg/dL [facility] Chloride [Moles/Vol] 97 mmol/L Low 98 - 10 7 mmol/L [facility] CO2 [Moles/Vol] 24 mmol/L 22 - 30 mmol/L [facility] Creatinine [Mass/Vol] 0.98 mg/dL Male: 0.66-1.25 mg/dL; Female: 0.52-1.04 mg/dL [facility] GFR/1.73 sq M.predicted MDRD (S/P/Bld) [Vol rate/Area] 67.9 mL/min/{1.73_m2} - PINF [facility] Glucose [Mass/Vol] 401 mg/dL High 70 - 100 mg/dL [facility] Interpretation and review of laboratory results Abnormal [facility] Potassium [Moles/Vol] 4.5 mmol/L 3.5 - 5.1 mmol/L [facility] Sodium [Moles/Vol] 131 mmol/L Low 135 - 145 mmol/L [facility] Urea nitrogen [Mass/Vol] 25 mg/dL Male: 9-20 mg/dL; Female: 7-17 mg/dL [facility] CBC panel Auto (Bld)Ordered By: Ioana Arriaga on 10-12-2023 Erythrocyte distribution width (RBC) [Ratio] 14.8 % High 11.5 - 14.5 % [facility] Hematocrit (Bld) [Volume fraction] 37.5 % Male: 40.0-52.0 %; Female: 35.0-47.0 % [facility] Hemoglobin (Bld) [Mass/Vol] 12.4 g/dL 11.7 - 18.0 g/dL [facility] Interpretation and review of laboratory results Abnormal [facility] MCH (RBC) [Entitic mass] 28.1 pg 26.0 - 34.0 pg [facility] MCHC (RBC) [Mass/Vol] 33.0 % 32.0 - 36.0 % [facility] MCV (RBC) [Entitic vol] 85.1 fL 80.0 - 98.0 fL [facility] Platelet mean volume (Bld) [Entitic vol] 7.5 fL 7.4 - 12.4 fL [facility] Platelets (Bld) [#/Vol] 355 10*3/uL 140 - 440 10*3/uL [facility] RBC (Bld) [#/Vol] 4.40 10*6/uL Male: 4.40-5.90; Female: 3.80-5.20 [facility] WBC (Bld) [#/Vol] 7.4 10*3/uL 3.6 - 10.7 10*3/uL [facility] Laboratory - Chemistry and C hemistry - challengeon 10-12-2023 Glucose [Mass/Vol] 359 mg/dL High 70 - 100 mg/dL [facility] Glucose [Mass/Vol] 327 mg/dL High 70 - 100 mg/dL [facility] Glucose [Mass/Vol] 364 mg/dL High 70 - 100 mg/dL [facility] Glucose [Mass/Vol] 304 mg/dL High 70 - 100 mg/dL [facility] Glucose [Mass/Vol] 411 mg/dL High 70 - 100 mg/dL [facility] Glucose [Mass/Vol] 387 mg/dL High 70 - 100 mg/dL [facility] Laboratory - Microbiology an d Antimicrobial susceptibilityon 10-12-2023 Bacteria identified Cx Nom (Bld) No growth at 5 days [facility] No Panel Informationon 10-12 Interpretation and review of laboratory results Abnormal [facility] Interpretation and review of laboratory results Abnormal [facility] Interpretation and review of laboratory results Abnormal [facility] Interpretation and review of laboratory results Abnormal [facility] Interpretation and review of laboratory results Abnormal [facility] Interpretation and review of laboratory results Abnormal [facility] XR Chest Single viewon 10-12 [facility] RADIOLOGY [facility] Radiology Study observation (narrative) [facility] XR Chest Single viewOrdered By: Alejandro Mooney on 10-12-2023 [facility] Work Phone: Bacteria identified Cx Nom ( Bld)Ordered By: Nayeli Reyna on 10-11-2023 Interpretation and review of laboratory results Abnormal [facility] CBC panel Auto (Bld)Ordered By: Rose Lee on 10-11-2023 Erythrocyte distribution width (RBC) [Ratio] 14.8 % High 11.5 - 14.5 % [facility] Hematocrit (Bld) [Volume fraction] 32.1 % Male: 40.0-52.0 %; Female: 35.0-47.0 % [facility] Hemoglobin (Bld) [Mass/Vol] 10.9 g/dL Low 11.7 - 18.0 g/dL [facility] Interpretation and review of laboratory results Abnormal [facility] MCH (RBC) [Entitic mass] 28.5 pg 26.0 - 34.0 pg [facility] MCHC (RBC) [Mass/Vol] 33.8 % 32.0 - 36.0 % [facility] MCV (RBC) [Entitic vol] 84.2 fL 80.0 - 98.0 fL [facility] Platelet mean volume (Bld) [Entitic vol] 7.9 fL 7.4 - 12.4 fL [facility] Platelets (Bld) [#/Vol] 347 10*3/uL 140 - 440 10*3/uL [facility] RBC (Bld) [#/Vol] 3.82 10*6/uL Male: 4.40-5.90; Female: 3.80-5.20 [facility] WBC (Bld) [#/Vol] 9.4 10*3/uL 3.6 - 10.7 10*3/uL [facility] Comprehensive metabolic 1998 panelon 10-11-2023 Albumin [Mass/Vol] 3.8 g/dL 3.5 - 5.0 g/dL [facility] ALP [Catalytic activity/Vol] 143 U/L High 38 - 126 U/L [facility] ALT [Catalytic activity/Vol] 28 U/L Male: 0-49 U/L; Female: 0-34 U/L [facility] Anion gap [Moles/Vol] 12 mmol/L 3 - 13 mmol/L [facility] AST [Catalytic activity/Vol] 20 U/L 15 - 46 U/L [facility] Bilirubin [Mass/Vol] 0.7 mg/dL 0.2 - 1 .3 mg/dL [facility] Calcium [Mass/Vol] 8.7 mg/dL 8.4 - 10. 4 mg/dL [facility] Chloride [Moles/Vol] 95 mmol/L Low 98 - 10 7 mmol/L [facility] CO2 [Moles/Vol] 22 mmol/L 22 - 30 mmol/L [facility] Creatinine [Mass/Vol] 1.30 mg/dL Male: 0.66-1.25 mg/dL; Female: 0.52-1.04 mg/dL [facility] GFR/1.73 sq M.predicted MDRD (S/P/Bld) [Vol rate/Area] 48.4 mL/min/{1.73_m2} Low - PINF [facility] Glucose [Mass/Vol] 397 mg/dL High 70 - 100 mg/dL [facility] Potassium [Moles/Vol] 4.2 mmol/L 3.5 - 5.1 mmol/L [facility] Protein [Mass/Vol] 6.5 g/dL 6.3 - 8.2 g/dL [facility] Sodium [Moles/Vol] 128 mmol/L Low 135 - 145 mmol/L [facility] Urea nitrogen [Mass/Vol] 28 mg/dL Male: 9-20 mg/dL; Female: 7-17 mg/dL [facility] Creatinine (U) [Mass/Vol]on 10-11-2023 CREATININE, URINE 10.6 mg/dL No Range [facility] Glucose (Bld) [Mass/Vol]Orde red By: Anna Figueroa on 10-11-2023 Glucose [Mass/Vol] 522 mg/dL Critically high 70 - 1 00 mg/dL [facility] Interpretation and review of laboratory results Abnormal [facility] Laboratory - Chemistry and C hemistry - challengeon 10-11-2023 Glucose [Mass/Vol] 401 mg/dL High 70 - 100 mg/dL [facility] Sodium (24H U) [Mass/Vol] 71 mmol/L 30 - 90 mmol/L [facility] Glucose [Mass/Vol] mg/dL High 70 - 100 mg/dL [facility] Glucose [Mass/Vol] mg/dL High 70 - 100 mg/dL [facility] Glucose [Mass/Vol] 447 mg/dL High 70 - 100 mg/dL [facility] Glucose [Mass/Vol] 354 mg/dL High 70 - 100 mg/dL [facility] Magnesium [Mass/Vol] 1.3 mg/dL Low 1.6 - 2 .3 mg/dL [facility] Glucose [Mass/Vol] 386 mg/dL High 70 - 100 mg/dL [facility] Laboratory - Microbiology an d Antimicrobial susceptibilityOrdered By: Nayeli Reyna on 10-11-2023 Bacteria identified Cx Nom (Bld) Acinetobacter lwoffii Critically abnormal [facility] No Panel Informationon 10-11 Interpretation and review of laboratory results Abnormal [facility] Interpretation and review of laboratory results Normal [facility] OSMOLALITY, URINE 318 [facility] Interpretation and review of laboratory results Normal [facility] Interpretation and review of laboratory results Abnormal [facility] Interpretation and review of laboratory results Abnormal [facility] Interpretation and review of laboratory results Abnormal [facility] Interpretation and review of laboratory results Abnormal [facility] Interpretation and review of laboratory results Abnormal [facility] Interpretation and review of laboratory results Abnormal [facility] Glucose (Bld) [Mass/Vol]Orde red By: Abner Vieyra on 10-10-2023 Glucose [Mass/Vol] 45 mg/dL Critically low 70 - 10 0 mg/dL [facility] Interpretation and review of laboratory results Abnormal [facility] Laboratory - Chemistry and C hemistry - challengeon 10-10-2023 Glucose [Mass/Vol] 404 mg/dL High 70 - 100 mg/dL [facility] Glucose [Mass/Vol] 405 mg/dL High 70 - 100 mg/dL [facility] Glucose [Mass/Vol] 353 mg/dL High 70 - 100 mg/dL [facility] Glucose [Mass/Vol] 253 mg/dL High 70 - 100 mg/dL [facility] Glucose [Mass/Vol] 254 mg/dL High 70 - 100 mg/dL [facility] Glucose [Mass/Vol] 258 mg/dL High 70 - 100 mg/dL [facility] Glucose [Mass/Vol] 248 mg/dL High 70 - 100 mg/dL [facility] Glucose [Mass/Vol] 101 mg/dL High 70 - 100 mg/dL [facility] Glucose [Mass/Vol] 67 mg/dL Low 70 - 100 mg/dL [facility] Glucose [Mass/Vol] mg/dL Low 70 - 100 mg/dL [facility] Glucose [Mass/Vol] mg/dL Low 70 - 100 mg/dL [facility] No Panel Informationon 10-10 Interpretation and review of laboratory results Abnormal [facility] Interpretation and review of laboratory results Abnormal [facility] Interpretation and review of laboratory results Abnormal [facility] Interpretation and review of laboratory results Abnormal [facility] Interpretation and review of laboratory results Abnormal [facility] Interpretation and review of laboratory results Abnormal [facility] Interpretation and review of laboratory results Abnormal [facility] Interpretation and review of laboratory results Abnormal [facility] Interpretation and review of laboratory results Abnormal [facility] Interpretation and review of laboratory results Abnormal [facility] Interpretation and review of laboratory results Abnormal [facility] Bacteria identified Cx Nom ( U)Ordered By: Tessy Gonzalez on 10-09-2023 Interpretation and review of laboratory results Normal [facility] [facility] 1998 panelon 10-09-2023 Anion gap [Moles/Vol] 9 mmol/L 3 - 13 mmol/L [facility] Calcium [Mass/Vol] 8.7 mg/dL 8.4 - 10. 4 mg/dL [facility] Chloride [Moles/Vol] 98 mmol/L 98 - 10 7 mmol/L [facility] CO2 [Moles/Vol] 23 mmol/L 22 - 30 mmol/L [facility] Creatinine [Mass/Vol] 0.76 mg/dL Male: 0.66-1.25 mg/dL; Female: 0.52-1.04 mg/dL [facility] GFR/1.73 sq M.predicted MDRD (S/P/Bld) [Vol rate/Area] - PINF [facility] Glucose [Mass/Vol] 344 mg/dL High 70 - 100 mg/dL [facility] Interpretation and review of laboratory results Abnormal [facility] Potassium [Moles/Vol] 4.5 mmol/L 3.5 - 5.1 mmol/L [facility] Sodium [Moles/Vol] 130 mmol/L Low 135 - 145 mmol/L [facility] Urea nitrogen [Mass/Vol] 23 mg/dL Male: 9-20 mg/dL; Female: 7-17 mg/dL [facility] Laboratory - Chemistry and C hemistry - challengeon 10-09-2023 Glucose [Mass/Vol] 117 mg/dL High 70 - 100 mg/dL [facility] Glucose [Mass/Vol] 82 mg/dL 70 - 100 mg/dL [facility] Glucose [Mass/Vol] 176 mg/dL High 70 - 100 mg/dL [facility] Glucose [Mass/Vol] 210 mg/dL High 70 - 100 mg/dL [facility] Glucose [Mass/Vol] 207 mg/dL High 70 - 100 mg/dL [facility] Glucose [Mass/Vol] 318 mg/dL High 70 - 100 mg/dL [facility] Glucose [Mass/Vol] 377 mg/dL High 70 - 100 mg/dL [facility] Glucose [Mass/Vol] 337 mg/dL High 70 - 100 mg/dL [facility] Average glucose Estimated from glycated hemoglobin (Bld) [Mass/Vol] 174 mg/dL [facility] Laboratory - Drug toxicology on 10-09-2023 Vancomycin [Mass/Vol] 11.5 ug/mL Low 15.0 - 20.0 ug/mL [facility] Laboratory - Hematology and Cell countson 10-09-2023 HbA1c (Bld) [Mass fraction] 7.7 % High NINF - 5.7 % [facility] Laboratory - Microbiology an d Antimicrobial susceptibilityOrdered By: Tessy Gonzalez on 10-09-2023 Bacteria identified Cx Nom (U) No growth (<1,000 CFU/mL) [facility] No Panel Informationon 10-09 Interpretation and review of laboratory results Abnormal [facility] Interpretation and review of laboratory results Normal [facility] Interpretation and review of laboratory results Abnormal [facility] Interpretation and review of laboratory results Abnormal [facility] Interpretation and review of laboratory results Abnormal [facility] Interpretation and review of laboratory results Abnormal [facility] Interpretation and review of laboratory results Abnormal [facility] Interpretation and review of laboratory results Abnormal [facility] Interpretation and review of laboratory results Abnormal [facility] Interpretation and review of laboratory results Abnormal [facility] Basic metabolic 1998 panelon 10-08-2023 Anion gap [Moles/Vol] 8 mmol/L 3 - 13 mmol/L [facility] Calcium [Mass/Vol] 8.1 mg/dL Low 8.4 - 10. 4 mg/dL [facility] Chloride [Moles/Vol] 100 mmol/L 98 - 10 7 mmol/L [facility] CO2 [Moles/Vol] 22 mmol/L 22 - 30 mmol/L [facility] Creatinine [Mass/Vol] 1.09 mg/dL Male: 0.66-1.25 mg/dL; Female: 0.52-1.04 mg/dL [facility] GFR/1.73 sq M.predicted MDRD (S/P/Bld) [Vol rate/Area] 59.7 mL/min/{1.73_m2} Low - PINF [facility] Glucose [Mass/Vol] 288 mg/dL High 70 - 100 mg/dL [facility] Potassium [Moles/Vol] 4.2 mmol/L 3.5 - 5.1 mmol/L [facility] Sodium [Moles/Vol] 130 mmol/L Low 135 - 145 mmol/L [facility] Urea nitrogen [Mass/Vol] 34 mg/dL Male: 9-20 mg/dL; Female: 7-17 mg/dL [facility] CBC W Auto Differential pane l (Bld)Ordered By: Sixto Yao on 10-08-2023 Basophils (Bld) [#/Vol] 0.1 10*3/uL 0.0 - 0.2 10*3/uL [facility] Basophils/100 WBC (Bld) 0.8 % 0.0 - 2.0 % [facility] Eosinophils (Bld) [#/Vol] 0.1 10*3/uL 0.0 - 0.5 10*3/uL [facility] Eosinophils/100 WBC (Bld) 0.9 % Low 1.0 - 6.0 % [facility] Erythrocyte distribution width (RBC) [Ratio] 15.7 % High 11.5 - 14.5 % [facility] Hematocrit (Bld) [Volume fraction] 31.6 % Male: 40.0-52.0 %; Female: 35.0-47.0 % [facility] Hemoglobin (Bld) [Mass/Vol] 10.6 g/dL Low 11.7 - 18.0 g/dL [facility] Interpretation and review of laboratory results Abnormal [facility] Lymphocytes (Bld) [#/Vol] 2.7 10*3/uL 1.0 - 4.3 10*3/uL [facility] Lymphocytes/100 WBC (Bld) 26.5 % 20.0 - 40.0 % [facility] MCH (RBC) [Entitic mass] 28.5 pg 26.0 - 34.0 pg [facility] MCHC (RBC) [Mass/Vol] 33.5 % 32.0 - 36.0 % [facility] MCV (RBC) [Entitic vol] 84.9 fL 80.0 - 98.0 fL [facility] Monocytes (Bld) [#/Vol] 0.7 10*3/uL 0.0 - 0.8 10*3/uL [facility] Monocytes/100 WBC (Bld) 7.3 % 2.0 - 10.0 % [facility] Neutrophils (Bld) [#/Vol] 6.5 10*3/uL 1.8 - 7.0 10*3/uL [facility] Neutrophils/100 WBC (Bld) 64.5 % 40.0 - 80.0 % [facility] Nucleated RBC/100 WBC (Bld) [Ratio] 0.1 % [facility] Platelet mean volume (Bld) [Entitic vol] 8.3 fL 7.4 - 12.4 fL [facility] Platelets (Bld) [#/Vol] 339 10*3/uL 140 - 440 10*3/uL [facility] RBC (Bld) [#/Vol] 3.72 10*6/uL Male: 4.40-5.90; Female: 3.80-5.20 [facility] WBC (Bld) [#/Vol] 10.1 10*3/uL 3.6 - 10.7 10*3/uL [facility] CT Abdomen and Pelvis W cont rast Erica 10-08-2023 [facility] RADIOLOGY SYSTEM [facility] RADIOLOG[facility] Radiology Study observation (narrative) [facility] CT Abdomen and Pelvis W cont rast IVOrdered By: Bao Hill on 10-08-2023 [facility] [employer] Work Phone: Hepatic function 2000 panelo n 10-08-2023 Albumin [Mass/Vol] 3.2 g/dL Low 3.5 - 5.0 g/dL [facility] [employer] ALP [Catalytic activity/Vol] 143 U/L High 38 - 126 U/L [facility] ALT [Catalytic activity/Vol] 42 U/L Male: 0-49 U/L; Female: 0-34 U/L [facility] AST [Catalytic activity/Vol] 33 U/L 15 - 46 U/L [facility] Bilirubin [Mass/Vol] 0.9 mg/dL 0.2 - 1 .3 mg/dL [facility] Bilirubin.conjugated [Mass/Vol] 0.0 mg/dL 0.0 - 0.3 mg/dL [facility] [employer] Protein [Mass/Vol] 5.9 g/dL Low 6.3 - 8.2 g/dL [facility] Laboratory - Chemistry and C hemistry - challengeon 10-08-2023 Glucose [Mass/Vol] 373 mg/dL High 70 - 100 mg/dL [facility] Glucose [Mass/Vol] 348 mg/dL High 70 - 100 mg/dL [facility] Glucose [Mass/Vol] 386 mg/dL High 70 - 100 mg/dL [facility] Glucose [Mass/Vol] 271 mg/dL High 70 - 100 mg/dL [facility] Ammonia (P) [Moles/Vol] 29 umol/L 9 - 30 umol/L [facility] MRSA DNA YASIR+probe Ql (Nose) on 10-08-2023 Interpretation and review of laboratory results Abnormal [facility] mecA gene Detected Abnormal Not Detected [facility] Staphylococcus aureus Detected Abnormal Not Detected [facility] No Panel Informationon 10-08 Interpretation and review of laboratory results Abnormal [facility] Interpretation and review of laboratory results Abnormal [facility] Interpretation and review of laboratory results Abnormal [facility] Interpretation and review of laboratory results Abnormal [facility] Interpretation and review of laboratory results Abnormal [facility] Interpretation and review of laboratory results Normal [facility] No Panel InformationOrdered By: Memo Bergman on 10-08-2023 Targets Detected Not detected [facility] Abdomen limitedon 023 [facility] RADIOLOGY SYSTEM [facility] Radiology Study observation (narrative) [facility] Abdomen limitedOrdered By : Javy Urias on 10-08-2023 [facility] Work Phone: CBC W Auto Differential pane l (Bld)Ordered By: Olamide Espino on 10-07-2023 Basophils (Bld) [#/Vol] 0.0 10*3/uL 0.0 - 0.2 10*3/uL [facility] Basophils/100 WBC (Bld) 0.2 % 0.0 - 2.0 % [facility] Eosinophils (Bld) [#/Vol] 0.0 10*3/uL 0.0 - 0.5 10*3/uL [facility] Eosinophils/100 WBC (Bld) 0.2 % Low 1.0 - 6.0 % [facility] Erythrocyte distribution width (RBC) [Ratio] 14.2 % 11.5 - 14.5 % [facility] Hematocrit (Bld) [Volume fraction] 41.5 % Male: 40.0-52.0 %; Female: 35.0-47.0 % [facility] Hemoglobin (Bld) [Mass/Vol] 13.2 g/dL 11.7 - 18.0 g/dL [facility] Immature granulocytes (Bld) [#/Vol] 0.1 10*3/uL High NINF - 0.0 10*3/uL [facility] Immature granulocytes/100 WBC (Bld) 0.8 % High NINF - 0.0 % [facility] Interpretation and review of laboratory results Abnormal [facility] Lymphocytes (Bld) [#/Vol] 1.0 10*3/uL 1.0 - 4.3 10*3/uL [facility] Lymphocytes/100 WBC (Bld) 7.5 % Low 20.0 - 40.0 % [facility] MCH (RBC) [Entitic mass] 27.8 pg 26.0 - 34.0 pg [facility] MCHC (RBC) [Mass/Vol] 31.8 % Low 32.0 - 36.0 % [facility] MCV (RBC) [Entitic vol] 87.4 fL 80.0 - 98.0 fL [facility] Monocytes (Bld) [#/Vol] 0.8 10*3/uL 0.0 - 0.8 10*3/uL [facility] Monocytes/100 WBC (Bld) 5.9 % 2.0 - 10.0 % [facility] Neutrophils (Bld) [#/Vol] 11.3 10*3/uL High 1.8 - 7.0 10*3/uL [facility] Neutrophils/100 WBC (Bld) 85.4 % High 40.0 - 80.0 % [facility] Platelet mean volume (Bld) [Entitic vol] 9.4 fL 7.4 - 12.4 fL [facility] Platelets (Bld) [#/Vol] 438 10*3/uL 140 - 440 10*3/uL [facility] RBC (Bld) [#/Vol] 4.75 10*6/uL Male: 4.40-5.90; Female: 3.80-5.20 [facility] WBC (Bld) [#/Vol] 13.3 10*3/uL High 3.6 - 10.7 10*3/uL [facility] CT Head WO contraston 2022 Mild parenchymal vol ume loss. No evidence of acute intracranial process. 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 Report Dictated on Electronically Signed By: Angel Randhawa MD Electronically Signed Date/Time: 10/07/2023 7:47 AM EST [facility] Patient Name: WILL ALVARADO : 1965 [...] are not adequately visualized for proper evaluation. [facility] Angel Randhawa MD - 10/07/2023 Patient Name: [...] Electronically Signed Date/Time: 10/07/2023 7:47 AM EST [facility] RADIOLOGY SYSTEM [facility] RADIOLOGY SYSTEM [facility] Radiology Study observation (narrative) [facility] CT Head WO contrastOrdered B y: Angel Randhawa on 10-07-2023 [facility] Work Phone: Comprehensive metabolic 1998 panelon 10-07-2023 Albumin [Mass/Vol] 4.1 g/dL 3.5 - 5.0 g/dL [facility] ALP [Catalytic activity/Vol] 133 U/L High 38 - 126 U/L [facility] ALT [Catalytic activity/Vol] 46 U/L Male: 0-49 U/L; Female: 0-34 U/L [facility] Anion gap [Moles/Vol] 11 mmol/L 3 - 13 mmol/L [facility] AST [Catalytic activity/Vol] 36 U/L 15 - 46 U/L [facility] Bilirubin [Mass/Vol] 0.4 mg/dL 0.2 - 1 .3 mg/dL [facility] Calcium [Mass/Vol] 8.8 mg/dL 8.4 - 10. 4 mg/dL [facility] Chloride [Moles/Vol] 100 mmol/L 98 - 10 7 mmol/L [facility] CO2 [Moles/Vol] 27 mmol/L 22 - 30 mmol/L [facility] Creatinine [Mass/Vol] 0.74 mg/dL Male: 0.66-1.25 mg/dL; Female: 0.52-1.04 mg/dL [facility] GFR/1.73 sq M.predicted MDRD (S/P/Bld) [Vol rate/Area] - PINF [facility] Glucose [Mass/Vol] 120 mg/dL High 70 - 100 mg/dL [facility] Interpretation and review of laboratory results Abnormal [facility] Potassium [Moles/Vol] 4.4 mmol/L 3.5 - 5.1 mmol/L [facility] Protein [Mass/Vol] 7.7 g/dL 6.3 - 8.2 g/dL [facility] Sodium [Moles/Vol] 138 mmol/L 135 - 145 mmol/L [facility] Urea nitrogen [Mass/Vol] 20 mg/dL Male: 9-20 mg/dL; Female: 7-17 mg/dL [facility] Ethanol (Bld) [Mass/Vol]on 12-07-2022 Ethanol [Mass/Vol] g/dL 0.000 - 0.010 g/dL [facility] Laboratory - Chemistry and C hemistry - challengeon 10-07-2023 Glucose [Mass/Vol] 267 mg/dL High 70 - 100 mg/dL [facility] Procalcitonin [Mass/Vol] 0.83 ng/mL High 0.00 - 0.09 ng/mL [facility] Lipase [Catalytic activity/Vol] 34 U/L 23 - 300 U/L [facility] Glucose [Mass/Vol] 176 mg/dL High 70 - 100 mg/dL [facility] Glucose [Mass/Vol] 111 mg/dL High 70 - 100 mg/dL [facility] Glucose [Mass/Vol] 81 mg/dL 70 - 100 mg/dL [facility] Glucose [Mass/Vol] 91 mg/dL 70 - 100 mg/dL [facility] Glucose [Mass/Vol] 100 mg/dL 70 - 100 mg/dL [facility] Glucose [Mass/Vol] 129 mg/dL High 70 - 100 mg/dL [facility] Glucose [Mass/Vol] 129 mg/dL [facility] Glucose [Mass/Vol] 129 mg/dL [facility] Glucose [Mass/Vol] 129 mg/dL High 70 - 100 mg/dL [facility] Glucose [Mass/Vol] 151 mg/dL [facility] Glucose [Mass/Vol] 151 mg/dL High 70 - 100 mg/dL [facility] Lactate [Moles/Vol] 1.2 mmol/L 0.7 - 2. 0 mmol/L [facility] Glucose [Mass/Vol] 100 mg/dL 70 - 100 mg/dL [facility] Glucose [Mass/Vol] 68 mg/dL Low 70 - 100 mg/dL [facility] Laboratory - Drug toxicology Ordered By: Annie Flynn on 10-07-2023 Amphetamines Screen method >1000 ng/mL Ql (U) Negative [facility] Barbiturates Screen method >200 ng/mL Ql (U) Negative [facility] Benzodiazepines Ql (U) Negative [facility] Methadone Screen Ql (U) Negative [facility] Opiates Screen Ql (U) Negative [facility] oxyCODONE Ql (U) Negative [facility] Phencyclidine Ql (U) Negative [facility] No Panel Informationon 10-07 Interpretation and review of laboratory results Abnormal [facility] Interpretation and review of laboratory results Normal [facility] Interpretation and review of laboratory results Abnormal [facility] Interpretation and review of laboratory results Abnormal [facility] Interpretation and review of laboratory results Normal [facility] Interpretation and review of laboratory results Normal [facility] Interpretation and review of laboratory results Normal [facility] Interpretation and review of laboratory results Abnormal [facility] Interpretation and review of laboratory results Normal [facility] Interpretation and review of laboratory results Normal [facility] Interpretation and review of laboratory results Abnormal [facility] Interpretation and review of laboratory results Normal [facility] Interpretation and review of laboratory results Abnormal [facility] Interpretation and review of laboratory results Normal [facility] Interpretation and review of laboratory results Normal [facility] Interpretation and review of laboratory results Abnormal [facility] No Panel InformationOrdered By: Annie Flynn on 10-07-2023 COCAINE METAB. SCREEN Negative [facility] Procalcitonin [Mass/Vol]on 12-07-2022 Interpretation and review of laboratory results Abnormal [facility] Respiratory pathogens DNA an d RNA panel YASIR+non-probe (Nph)on 10-07-2023 Adenovirus Not detected Not Detected [facility] B. pertussis DNA YASIR+probe Ql (Unsp spec) Not detected Not Detected [facility] Bordetella parapertussis Not detected Not Detected [facility] Chlamydia pneumoniae Not detected Not Detected [facility] Coronavirus 229E Not detected Not Detected [facility] Coronavirus HKU1 Not detected Not Detected [facility] Coronavirus NL63 Not detected Not Detected [facility] Coronavirus OC43 Not detected Not Detected [facility] FLUAV RNA YASIR+non-probe Ql (Nph) Not detected Not Detected [facility] FLUBV RNA YASIR+non-probe Ql (Nph) Not detected Not Detected [facility] Human Metapneumovirus Not detected Not Detected [facility] Human Rhinovirus/Enterovirus Not detected Not Detected [facility] Interpretation and review of laboratory results Normal [facility] Mycoplasma pneumoniae Not detected Not Detected [facility] Parainfluenza 1 Not detected Not Detected [facility] Parainfluenza 2 Not detected Not Detected [facility] Parainfluenza 3 Not detected Not Detected [facility] Parainfluenza 4 Not detected Not Detected [facility] Respiratory Syncytial Virus Not detected Not Detected [facility] SARS-CoV-2 (COVID-19) RNA YASIR+non-probe Ql (Nph) Not detected Not Detected [facility] Urinalysis complete panel (U )on 10-07-2023 Bacteria LM.HPF (Urine sed) [#/Area] Negative Negative /HPF [facility] Bilirubin Ql (U) Negative Negative mg/dL [facility] Clarity (U) Clear Clear [facility] Color (U) Yellow Lt. Yellow [facility] Epithelial cells.squamous LM.HPF (Urine sed) [#/Area] Negative [facility] Glucose Ql (U) 300 mg/dL Abnormal Normal (<70) [facility] Hemoglobin Ql (U) Negative Negative mg/dL [facility] Interpretation and review of laboratory results Abnormal [facility] Ketones (U) [Mass/Vol] Negative Negat beranrd mg/dL [facility] Leukocyte esterase Test strip Ql (U) Negative Negative Kat/uL [facility] Mucus LM.HPF (Urine sed) [#/Area] Few Negative /LPF [facility] Nitrite Ql (U) Negative Negative [facility] pH (U) 6.0 [pH] 5.0 - 8.0 pH [facility] Protein (U) [Mass/Vol] 300 mg/dL Abnormal Negative [facility] RBC LM.HPF (Urine sed) [#/Area] 0-2 [facility] Specific gravity (U) [Rel density] 1.023 1.005 - 1.030 [facility] Urobilinogen (U) [Mass/Vol] Normal Normal (0-1) mg/dL [facility] Volume, Urine 12 mL [facility] WBC LM.HPF (Urine sed) [#/Area] 3-5 [facility] XR Chest Single viewon 10-07 [facility] RADIOLOGY SYSTEM [facility] RADIOLOGY [facility] Radiology Study observation (narrative) [facility] Whole blood hemoglobin A1c/t otal hemoglobin ratio (mass fraction)Ordered By: Jared Guzman on 09-20-2023 HbA1c (Bld) [Mass fraction] 7.3 % 3.8-5.6 [facility] Comment on above: Normal < 5.7 % Predi abetic 5.7 - 6.4 % Diabetic >or= 6.5 % Please note range changes. Basic metabolic 1998 panelon 08-19-2023 Anion gap [Moles/Vol] 5 mmol/L 3 - 13 mmol/L [facility] Calcium [Mass/Vol] 8.4 mg/dL 8.4 - 10. 4 mg/dL [facility] Chloride [Moles/Vol] 99 mmol/L 98 - 10 7 mmol/L [facility] CO2 [Moles/Vol] 26 mmol/L 22 - 30 mmol/L [facility] Creatinine [Mass/Vol] 1.00 mg/dL Male: 0.66-1.25 mg/dL; Female: 0.52-1.04 mg/dL [facility] GFR/1.73 sq M.predicted MDRD (S/P/Bld) [Vol rate/Area] 66.3 mL/min/{1.73_m2} - PINF [facility] Comment on above: Calculation based on the Chronic Kidney Disease Epidemiology Collaboration (CKD-EPI) equation refit without adjustment for race Glucose [Mass/Vol] 223 mg/dL High 70 - 100 mg/dL [facility] Interpretation and review of laboratory results Abnormal [facility] Potassium [Moles/Vol] 4.4 mmol/L 3.5 - 5.1 mmol/L [facility] Sodium [Moles/Vol] 130 mmol/L Low 135 - 145 mmol/L [facility] Urea nitrogen [Mass/Vol] 23 mg/dL Male: 9-20 mg/dL; Female: 7-17 mg/dL [facility] CBC panel Auto (Bld)Ordered By: Joel Houston on 08-19-2023 Erythrocyte distribution width (RBC) [Ratio] 15.3 % High 11.5 - 14.5 % [facility] Hematocrit (Bld) [Volume fraction] 36.3 % Male: 40.0-52.0 %; Female: 35.0-47.0 % [facility] Hemoglobin (Bld) [Mass/Vol] 12.2 g/dL 11.7 - 18.0 g/dL [facility] Interpretation and review of laboratory results Abnormal [facility] MCH (RBC) [Entitic mass] 27.7 pg 26.0 - 34.0 pg [facility] MCHC (RBC) [Mass/Vol] 33.7 % 32.0 - 36.0 % [facility] MCV (RBC) [Entitic vol] 82.2 fL 80.0 - 98.0 fL [facility] Platelet mean volume (Bld) [Entitic vol] 7.8 fL 7.4 - 12.4 fL [facility] Platelets (Bld) [#/Vol] 402 10*3/uL 140 - 440 10*3/uL [facility] RBC (Bld) [#/Vol] 4.41 10*6/uL Male: 4.40-5.90; Female: 3.80-5.20 [facility] WBC (Bld) [#/Vol] 8.6 10*3/uL 3.6 - 10.7 10*3/uL [facility] Laboratory - Chemistry and C hemistry - challengeon 08-19-2023 Glucose [Mass/Vol] 196 mg/dL High 70 - 100 mg/dL [facility] Glucose [Mass/Vol] 255 mg/dL High 70 - 100 mg/dL [facility] Glucose [Mass/Vol] 236 mg/dL High 70 - 100 mg/dL [facility] [employer] No Panel Informationon 08-19 Interpretation and review of laboratory results Abnormal [facility] [employer] Performed by: [facility], [address], [facility] [address] CLIA ID: [id number] [facility] [employer] [facility] Interpretation and review of laboratory results Abnormal [facility] [employer] Performed by: [facility], [address], [facility] [address] CLIA ID: [id number] [facility] [employer] [facility] Interpretation and review of laboratory results Abnormal [facility] [employer] Performed by: [facility], [address], [facility] [address] CLIA ID: [id number] [facility] [employer] [facility] Sinus bradycardia Left bundle branch block Prolonged [...] On 08-19-2023 7:37:13 EDT by Nicolas Rose [facility] [employer] No Panel InformationOrdered By: Nicolas Rose on 08-19-2023 P [place]lew 40 degrees [employer] Work Phone: CA Interval 194 ms [facility] Work Phone: QRS Curlew -30 degrees [facility] Work Phone: QRSD Interval 140 ms [facility] Work Phone: QT Interval 632 ms [facility] Work Phone: [phone] QTC Interval 563 ms [facility] Work Phone: T Wave [place] -4 degrees [facility] Work Phone: [facility] Work Phone: Vital signsOrdered By: Harman Rose on 08-19-2023 Heart rate 48 /min bpm [facility] [employer] Work Phone: Basic metabolic 1998 panelon 08-18-2023 Anion gap [Moles/Vol] 6 mmol/L 3 - 13 mmol/L [facility] [employer] Calcium [Mass/Vol] 8.0 mg/dL Low 8.4 - 10. 4 mg/dL [facility] [employer] Chloride [Moles/Vol] 100 mmol/L 98 - 10 7 mmol/L [facility] [employer] CO2 [Moles/Vol] 24 mmol/L 22 - 30 mmol/L [facility] [employer] Creatinine [Mass/Vol] 0.76 mg/dL Male: 0.66-1.25 mg/dL; Female: 0.52-1.04 mg/dL [facility] [employer] GFR/1.73 sq M.predicted MDRD (S/P/Bld) [Vol rate/Area] - PINF [facility] Comment on above: Calculation based on the Chronic Kidney Disease Epidemiology Collaboration (CKD-EPI) equation refit without adjustment for race Glucose [Mass/Vol] 311 mg/dL High 70 - 100 mg/dL [facility] Interpretation and review of laboratory results Abnormal [facility] [employer] Potassium [Moles/Vol] 4.2 mmol/L 3.5 - 5.1 mmol/L [facility] [employer] Sodium [Moles/Vol] 130 mmol/L Low 135 - 145 mmol/L [facility] [employer] Urea nitrogen [Mass/Vol] 24 mg/dL Male: 9-20 mg/dL; Female: 7-17 mg/dL [facility] CBC W Auto Differential pane l (Bld)Ordered By: Alex Kwok on 08-18-2023 Basophils (Bld) [#/Vol] 0.1 10*3/uL 0.0 - 0.2 10*3/uL [facility] Basophils/100 WBC (Bld) 0.7 % 0.0 - 2.0 % [facility] Eosinophils (Bld) [#/Vol] 0.2 10*3/uL 0.0 - 0.5 10*3/uL [facility] Eosinophils/100 WBC (Bld) 1.2 % 1.0 - 6.0 % [facility] Erythrocyte distribution width (RBC) [Ratio] 15.2 % High 11.5 - 14.5 % [facility] Hematocrit (Bld) [Volume fraction] 36.1 % Male: 40.0-52.0 %; Female: 35.0-47.0 % [facility] Hemoglobin (Bld) [Mass/Vol] 12.2 g/dL 11.7 - 18.0 g/dL [facility] Interpretation and review of laboratory results Abnormal [facility] Lymphocytes (Bld) [#/Vol] 2.3 10*3/uL 1.0 - 4.3 10*3/uL [facility] Lymphocytes/100 WBC (Bld) 17.5 % Low 20.0 - 40.0 % [facility] MCH (RBC) [Entitic mass] 28.2 pg 26.0 - 34.0 pg [facility] MCHC (RBC) [Mass/Vol] 33.9 % 32.0 - 36.0 % [facility] MCV (RBC) [Entitic vol] 83.0 fL 80.0 - 98.0 fL [facility] Monocytes (Bld) [#/Vol] 1.2 10*3/uL High 0.0 - 0.8 10*3/uL [facility] Monocytes/100 WBC (Bld) 8.8 % 2.0 - 10.0 % [facility] Neutrophils (Bld) [#/Vol] 9.5 10*3/uL High 1.8 - 7.0 10*3/uL [facility] Neutrophils/100 WBC (Bld) 71.8 % 40.0 - 80.0 % [facility] Nucleated RBC/100 WBC (Bld) [Ratio] 0.0 % [facility] Platelet mean volume (Bld) [Entitic vol] 7.7 fL 7.4 - 12.4 fL [facility] Platelets (Bld) [#/Vol] 388 10*3/uL 140 - 440 10*3/uL [facility] RBC (Bld) [#/Vol] 4.35 10*6/uL Male: 4.40-5.90; Female: 3.80-5.20 [facility] WBC (Bld) [#/Vol] 13.2 10*3/uL High 3.6 - 10.7 10*3/uL [facility] Laboratory - Chemistry and C hemistry - challengeon 08-18-2023 Glucose [Mass/Vol] 294 mg/dL High 70 - 100 mg/dL [facility] [employer] Glucose [Mass/Vol] 339 mg/dL High 70 - 100 mg/dL [facility] [employer] Glucose [Mass/Vol] 363 mg/dL High 70 - 100 mg/dL [facility] [employer] Glucose [Mass/Vol] 398 mg/dL High 70 - 100 mg/dL [facility] [employer] No Panel Informationon 08-18 Interpretation and review of laboratory results Abnormal [facility] [employer] Performed by: [facility], [address] [facility], [facility] [address] CLIA ID: [id number] [facility] [employer] [facility] [employer] Interpretation and review of laboratory results Abnormal [facility] [employer] Performed by: [facility], [address], [facility] [address] CLIA ID: [id number] [facility] [employer] [facility] Interpretation and review of laboratory results Abnormal [facility] [employer] Performed by: [facility], [address], [facility] [address] CLIA ID: [id number] [facility] [employer] [facility] Interpretation and review of laboratory results Abnormal [facility] [employer] Performed by: [facility], [address] [facility], [facility] [address] CLIA ID: [id number] [facility] [employer] [facility] Basophil percentageon 2022 Sodium [Moles/Vol] 132 mmol/L 136-145 [facility] [employer] Basophil percentageOrdered B y: Jared Guzman on 08-17-2023 Bilirubin [Mass/Vol] 0.60 mg/dL 0.20-1.00 [facility] Comment on above: For patients on eltr ombopag therapy, use of Dimension Spray TBIL is not recommended. Chloride [Moles/Vol] 100 mmol/L 98-107 [facility] Glucose [Mass/Vol] 240 mg/dL 74-106 [facility] Comment on above: Glucose result great er than or equal to 200 mg/dLsuggests DIABETES MELLITUS per A.D.A. criteria. Potassium [Moles/Vol] 4.3 mmol/L 3.5-5.1 [facility] Protein [Mass/Vol] 6.8 g/dL 6.4-8.2 [facility] WBC (Bld) [#/Vol] 9.3 10*3/uL 4.4-11.0 [facility] Blood erythrocytes count (nu mber/volume)Ordered By: Jared Guzman on 08-17-2023 RBC (Bld) [#/Vol] 4.64 10*6/uL 4.2-5.4 [facility] Blood hemoglobin measurement (mass/volume)Ordered By: Jared uGzman on 08-17-2023 Hemoglobin (Bld) [Mass/Vol] 12.4 g/dL 12.0-15.0 [facility] Blood platelet mean volumeOr dered By: Jared Guzman on 08-17-2023 Platelet mean volume (Bld) [Entitic vol] 9.8 fL 6.2-12.0 [facility] CBC W Auto Differential pane l (Bld)Ordered By: Bisi Bloom on 08-17-2023 Basophils (Bld) [#/Vol] 0.1 10*3/uL 0.0 - 0.2 10*3/uL [facility] Basophils/100 WBC (Bld) 0.8 % 0.0 - 2.0 % [facility] Eosinophils (Bld) [#/Vol] 0.1 10*3/uL 0.0 - 0.5 10*3/uL [facility] Eosinophils/100 WBC (Bld) 0.4 % Low 1.0 - 6.0 % [facility] Erythrocyte distribution width (RBC) [Ratio] 15.3 % High 11.5 - 14.5 % [facility] Hematocrit (Bld) [Volume fraction] 37.7 % Male: 40.0-52.0 %; Female: 35.0-47.0 % [facility] Hemoglobin (Bld) [Mass/Vol] 12.5 g/dL 11.7 - 18.0 g/dL [facility] Interpretation and review of laboratory results Abnormal [facility] [employer] Lymphocytes (Bld) [#/Vol] 3.6 10*3/uL 1.0 - 4.3 10*3/uL [facility] Lymphocytes/100 WBC (Bld) 24.4 % 20.0 - 40.0 % [facility] MCH (RBC) [Entitic mass] 27.2 pg 26.0 - 34.0 pg [facility] [employer] MCHC (RBC) [Mass/Vol] 33.1 % 32.0 - [...] RBC/100 WBC (Bld) [Ratio] 0.0 % [facility] [employer] Platelet mean volume (Bld) [Entitic vol] 7.5 fL 7.4 - 12.4 fL [facility] Platelets (Bld) [#/Vol] 468 10*3/uL High 140 - 440 10*3/uL [facility] RBC (Bld) [#/Vol] 4.57 10*6/uL Male: 4.40-5.90; Female: 3.80-5.20 [facility] [employer] WBC (Bld) [#/Vol] 14.7 10*3/uL High 3.6 - 10.7 10*3/uL [facility] CT Abdomen and Pelvis W [...] Electronically Signed Date/Time: 08/17/2023 4:21 PM EDT [employer] Patient Name: WILL ALVARADO : 1965 [...] and increased in size since November 2020. [facility] Milton Guy MD - 08/17/2023 Patient [...] Electronically Signed Date/Time: 08/17/2023 4:21 PM EDT [employer] Radiology Study observation (narrative) [facility] CT Abdomen and Pelvis W cont rast IVOrdered By: Milton Guy on 08-17-2023 [facility] Work Phone: Comprehensive metabolic 1998 panelon 08-17-2023 Albumin [Mass/Vol] 4.0 g/dL 3.5 - 5.0 g/dL [employer] ALP [Catalytic activity/Vol] 136 U/L High 38 - 126 U/L [employer] ALT [Catalytic activity/Vol] 47 U/L Male: 0-49 U/L; Female: 0-34 U/L [facility] Anion gap [Moles/Vol] 4 mmol/L 3 - 13 mmol/L [facility] AST [Catalytic activity/Vol] 29 U/L 15 - 46 U/L [facility] Bilirubin [Mass/Vol] 0.5 mg/dL 0.2 - 1 .3 mg/dL [facility] Calcium [Mass/Vol] 8.8 mg/dL 8.4 - 10. 4 mg/dL [facility] Chloride [Moles/Vol] 99 mmol/L 98 - 10 7 mmol/L [facility] CO2 [Moles/Vol] 29 mmol/L 22 - 30 mmol/L [facility] Creatinine [Mass/Vol] 0.72 mg/dL Male: 0.66-1.25 mg/dL; Female: 0.52-1.04 mg/dL [facility] GFR/1.73 sq M.predicted MDRD (S/P/Bld) [Vol rate/Area] - PINF [facility] Comment on above: Calculation based on the Chronic Kidney Disease Epidemiology Collaboration (CKD-EPI) equation refit without adjustment for race Glucose [Mass/Vol] 71 mg/dL 70 - 100 mg/dL [facility] Interpretation and review of laboratory results Abnormal [facility] Potassium [Moles/Vol] 4.8 mmol/L 3.5 - 5.1 mmol/L [facility] Protein [Mass/Vol] 7.1 g/dL 6.3 - 8.2 g/dL [facility] Urea nitrogen [Mass/Vol] 17 mg/dL Male: 9-20 mg/dL; Female: 7-17 mg/dL [facility] Determination of erythrocyte mean corpuscular volume (MCV)Ordered By: Jared Guzman on 08-17-2023 MCV (RBC) [Entitic vol] 86.6 fL 81-99 [facility] Glucose (Bld) [Mass/Vol]Orde red By: Asuncion Buchanan on 08-17-2023 Glucose [Mass/Vol] 29 mg/dL Critically low 70 - 10 0 mg/dL [facility] Interpretation and review of laboratory results Abnormal [facility] Hematocrit Auto (Bld) [Volum e fraction]Ordered By: Jared Guzman on 08-17-2023 Hematocrit (Bld) [Volume fraction] 40.2 % 37-47 [facility] Laboratory - Chemistry and C hemistry - challengeon 08-17-2023 Glucose [Mass/Vol] 154 mg/dL High 70 - 100 mg/dL [facility] Glucose [Mass/Vol] 154 mg/dL [facility] Glucose [Mass/Vol] 154 mg/dL High 70 - 100 mg/dL [facility] Glucose [Mass/Vol] mg/dL Low 70 - 100 mg/dL [facility] Comment on above: Caregiver Notified; Confirmation Drawn; Lipase [Catalytic activity/Vol] 62 U/L 23 - 300 U/L [facility] Lactate [Moles/Vol] 1.1 mmol/L 0.7 - 2. 0 mmol/L [facility] Laboratory - Chemistry and C hemistry - challengeOrdered By: Jared Guzman on 08-17-2023 ALP [Catalytic activity/Vol] 156 U/L 45-117 [facility] ALT [Catalytic activity/Vol] 56 U/L 13-56 [facility] CO2 [Moles/Vol] 29.0 mmol/L 21.0-32.0 [facility] Globulin (S) [Mass/Vol] 3.7 g/dL 2.2-4.2 [facility] Urea nitrogen/Creatinine [Mass ratio] 20.6 mg/mg 10-20 [facility] Laboratory - Hematology and Cell countsOrdered By: Jared Guzman on 08-17-2023 Erythrocyte distribution width (RBC) [Entitic vol] 44.6 fL 35.1-43.9 [facility] Erythrocyte distribution width (RBC) [Ratio] 14.0 % 11.6-14.6 [facility] MCH (RBC) [Entitic mass] 26.7 pg 27.0-32.0 [facility] Lipase [Catalytic activity/V ol]on 08-17-2023 Interpretation and review of laboratory results Normal [facility] MCHC Auto (RBC) [Mass/Vol]Or dered By: Jared Guzman on 08-17-2023 MCHC (RBC) [Mass/Vol] 30.8 g/dL 32-36 [facility] No Panel Informationon 08-17 Interpretation and review of laboratory results Abnormal [facility] Performed by: [facility], [address] [place] [id number] CLIA ID: [id number] [facility] Interpretation and review of laboratory results Normal [facility] Interpretation and review of laboratory results Abnormal [facility] Performed by: [facility], [address] [facility] [address] CLIA ID: [id number] [facility] Interpretation and review of laboratory results Abnormal [facility] Performed by: [facility], [address], [facility] [address] CLIA ID: [id number] [facility] Interpretation and review of laboratory results Normal [facility] No Panel InformationOrdered By: Jared Guzman on 08-17-2023 Estimated GFR (MDRD) Amer 99 mL/min >60 [facility] Comment on above: GFR Calc Estimated GFR (MDRD) Non-Af Amer 81 mL/min >60 [facility] Comment on above: Non- GFR Calc Platelets bldOrdered By: Mike Guzman on 08-17-2023 Platelets (Bld) [#/Vol] 410 10*3/uL 150-450 [facility] Serum or plasma albumin mauricio urement (mass/volume)Ordered By: Jared Guzman on 08-17-2023 Albumin [Mass/Vol] 3.1 g/dL 3.2-5.0 [facility] Serum or plasma albumin/glob ulin mass ratioOrdered By: Jared Guzman on 08-17-2023 Albumin/Globulin [Mass ratio] 0.8 {ratio} 0.9-2.4 [facility] Serum or plasma calcium mauricio urement (mass/volume)Ordered By: Jared Guzman on 08-17-2023 Calcium [Mass/Vol] 9.1 mg/dL 8.5-10.1 [facility] Serum or plasma creatinine m easurement (mass/volume)Ordered By: Jared Guzman on 08-17-2023 Creatinine [Mass/Vol] 0.78 mg/dL 0.55-1.02 [facility] Comment on above: The validity of the calculated GFR & GFRAA in patients over 70 years has not been determined. Clinical correlation is essential. Serum or plasma urea nitroge n measurement (mass/volume)Ordered By: Jared Guzman on 08-17-2023 Urea nitrogen [Mass/Vol] 16 mg/dL 7-18 [facility] Thin prep Papanicolaou smear with manual screeningOrdered By: Jared Guzman on 08-17-2023 Thin prep Papanicolaou smear with manual screening 16 U/L 15-37 [facility] Thin prep Papanicolaou smear with manual screening 3 5-15 [facility] Urinalysis complete panel (U )Ordered By: Silvia Bone on 08-17-2023 Bacteria LM.HPF (Urine sed) [#/Area] Negative Negative /HPF [facility] Bilirubin Ql (U) Negative Negative mg/dL [facility] Clarity (U) Clear Clear [facility] Color (U) Yellow Lt. Yellow [facility] Epithelial cells.squamous LM.HPF (Urine sed) [#/Area] 0-2 [facility] Glucose Ql (U) 300 mg/dL Abnormal Normal (<70) [facility] Hemoglobin Ql (U) 0.06 mg/dL Abnormal Negative [facility] Hyaline casts Auto (Urine sed) [#/Area] 0-2 Abnormal Negative /LPF [facility] Interpretation and review of laboratory results Abnormal [facility] Ketones (U) [Mass/Vol] Negative Negat bernard mg/dL [facility] Leukocyte esterase Test strip Ql (U) Negative Negative Kat/uL [facility] Mucus LM.HPF (Urine sed) [#/Area] Few Negative /LPF [facility] Nitrite Ql (U) Negative Negative [facility] pH (U) 6.0 [pH] 5.0 - 8.0 pH [facility] Protein (U) [Mass/Vol] 300 mg/dL Abnormal Negative [facility] RBC LM.HPF (Urine sed) [#/Area] 3-5 Abnormal [facility] Specific gravity (U) [Rel density] 1.040 High 1.005 - 1.030 [facility] Urobilinogen (U) [Mass/Vol] 2 mg/dL Abnormal Normal (0-1) [facility] WBC LM.HPF (Urine sed) [#/Area] 3-5 [facility] Basic metabolic 1998 panelon 08-08-2023 Anion gap [Moles/Vol] 5 mmol/L 3 - 13 mmol/L [facility] Calcium [Mass/Vol] 8.9 mg/dL 8.4 - 10. 4 mg/dL [facility] Chloride [Moles/Vol] 97 mmol/L Low 98 - 10 7 mmol/L [facility] CO2 [Moles/Vol] 27 mmol/L 22 - 30 mmol/L [facility] Creatinine [Mass/Vol] 0.49 mg/dL Male: 0.66-1.25 mg/dL; Female: 0.52-1.04 mg/dL [facility] GFR/1.73 sq M.predicted MDRD (S/P/Bld) [Vol rate/Area] - PINF [facility] Comment on above: Calculation based on the Chronic Kidney Disease Epidemiology Collaboration (CKD-EPI) equation refit without adjustment for race Glucose [Mass/Vol] 253 mg/dL High 70 - 100 mg/dL [facility] Potassium [Moles/Vol] 5.0 mmol/L 3.5 - 5.1 mmol/L [facility] Sodium [Moles/Vol] 130 mmol/L Low 135 - 145 mmol/L [facility] Urea nitrogen [Mass/Vol] 13 mg/dL Male: 9-20 mg/dL; Female: 7-17 mg/dL [facility] Beta Hydroxybutyrateon 08-08 Beta hydroxybutyrate [Mass/Vol] 8.44 mg/dL High 0.20 - 2.81 mg/dL [facility] Interpretation and review of laboratory results Abnormal [facility] CBC panel Auto (Bld)Ordered By: Alex Kwok on 08-08-2023 Erythrocyte distribution width (RBC) [Ratio] 15.3 % High 11.5 - 14.5 % [facility] Hematocrit (Bld) [Volume fraction] 36.2 % Male: 40.0-52.0 %; Female: 35.0-47.0 % [facility] Hemoglobin (Bld) [Mass/Vol] 12.0 g/dL 11.7 - 18.0 g/dL [facility] Interpretation and review of laboratory results Abnormal [facility] MCH (RBC) [Entitic mass] 27.3 pg 26.0 - 34.0 pg [facility] MCHC (RBC) [Mass/Vol] 33.3 % 32.0 - 36.0 % [facility] MCV (RBC) [Entitic vol] 81.9 fL 80.0 - 98.0 fL [facility] Platelet mean volume (Bld) [Entitic vol] 7.6 fL 7.4 - 12.4 fL [facility] Platelets (Bld) [#/Vol] 364 10*3/uL 140 - 440 10*3/uL [facility] RBC (Bld) [#/Vol] 4.42 10*6/uL Male: 4.40-5.90; Female: 3.80-5.20 [facility] WBC (Bld) [#/Vol] 9.7 10*3/uL 3.6 - 10.7 10*3/uL [facility] CT Abdomen and Pelvis W cont rast [...] MD Electronically Signed Date/Time: 08/08/2023 8:43 AM [facility] 1965 [id number] Exam Date/Time: 08/08/2023 08:23 Procedure: CT ABDOMEN [...] No acute fracture. No suspicious osseous lesions. [facility] RADIOLOGY [facility] Yvette Stringer MD - 08/08/2023 Patient Name: WILL JACINTO : 1965 Exam Date/Time: 08/08/2023 08:23 Procedure: [...] Electronically Signed Date/Time: 08/08/2023 8:43 AM EDT [facility] Radiology Study observation (narrative) [facility] ECG 12 leadon 08-08-2023 Heart rate 111 /min bpm [facility] [employer] P Curlew 48 degrees [facility] [employer] CA Interval 164 ms [facility] QRS Curlew -40 degrees [facility] QRSD Interval 116 ms [facility] QT Interval 363 ms [facility] QTC Interval 494 ms [facility] T Wave Curlew 54 degrees [facility] Sinus tachycardia Left anterior fascicular block Left ventricular hypertrophy Borderline prolonged QT interval Compared to ECG 06/29/2023 06:27:39 Electronically Signed On 08-08-2023 7:02:41 EDT by Gayle Trevizo Gayle Mercedes MD - 08/08/2023 IMPRESSION: Sinus tachycardia Left anterior fascicular block Left ventricular hypertrophy Borderline prolonged QT interval Compared to ECG 06/29/2023 06:27:39 Electronically Signed On 08-08-2023 7:02:41 EDT by Gayle Trevizo [facility] Hepatic function 2000 panelo n 08-08-2023 Albumin [Mass/Vol] 4.0 g/dL 3.5 - 5.0 g/dL [facility] [employer] ALP [Catalytic activity/Vol] 156 U/L High 38 - 126 U/L [facility] ALT [Catalytic activity/Vol] 39 U/L Male: 0-49 U/L; Female: 0-34 U/L [facility] AST [Catalytic activity/Vol] 30 U/L 15 - 46 U/L [facility] Bilirubin [Mass/Vol] 0.5 mg/dL 0.2 - 1 .3 mg/dL [facility] Bilirubin.conjugated [Mass/Vol] 0.0 mg/dL 0.0 - 0.3 mg/dL [facility] Protein [Mass/Vol] 7.3 g/dL 6.3 - 8.2 g/dL [facility] [employer] Lipaseon 08-08-2023 Lipase [Catalytic activity/Vol] 34 U/L 23 - 300 U/L [facility] Lipase [Catalytic activity/V ol]on 08-08-2023 Interpretation and review of laboratory results Normal [facility] [employer] No Panel Informationon 08-08 [facility] Interpretation and review of laboratory results Abnormal [facility] [employer] POCT glucose meteron 023 Glucose [Mass/Vol] 251 mg/dL High 70 - 100 mg/dL [facility] Interpretation and review of laboratory results Abnormal [facility] [employer] Performed by: [facility], [address] [place], [place] [id number] CLIA ID: [id number] [facility] POCT venous blood gason Base excess Calc (BldV) [Moles/Vol] 0.0 mmol/L -3 - 3 mmol/L [facility] CO2 (BldV) [Partial pressure] 35.7 mm[Hg] Low [facility] CO2 [Moles/Vol] 24.9 mmol/L 24.0 - 28.0 mmol/L [facility] Comment on above: Performed by CLIA ID : [id number] [place], [place] ?Device: [id number] Thermostat Maker ID: [id number] [facility] HCO3 (Bld) [Moles/Vol] 23.8 mmol/L 23.0 - 27.0 mmol/L [facility] Interpretation and review of laboratory results Abnormal [facility] Oxygen (BldV) [Partial pressure] 40.4 mm[Hg] [facility] Oxygen saturation in Venous blood 77.5 % 60.0 - 80.0 % [facility] pH (BldV) 7.432 [pH] High 7.330 - 7.430 pH [facility] Performed by: [facility], [address] [place] [address] CLIA ID: [id number] [facility] Troponin I.cardiac [Mass/Vol ]on 08-08-2023 Interpretation and review of laboratory results Normal [facility] Patients with high levels of Biotin oral intake (ie >5 mg/day) may have falsely decreased Troponin levels. [facility] Troponin, with Serial Reflex on 08-08-2023 Troponin I.cardiac [Mass/Vol] ng/mL NINF - 0.034 ng/mL [facility] Urinalysis complete panel (U )Ordered By: Jackson Her on 08-08-2023 Bacteria LM.HPF (Urine sed) [#/Area] Few Abnormal Negative /HPF [facility] Bilirubin Ql (U) Negative Negative mg/dL [facility] Clarity (U) Clear Clear [facility] Color (U) Light Yellow Lt. Yellow [facility] Epithelial cells.squamous LM.HPF (Urine sed) [#/Area] 0-2 [facility] Glucose Ql (U) 150 mg/dL Abnormal Normal (<70) [facility] Hemoglobin Ql (U) 0.06 mg/dL Abnormal Negative [facility] Interpretation and review of laboratory results Abnormal [facility] Ketones (U) [Mass/Vol] 10 mg/dL Abnormal Negative [facility] Leukocyte clumps LM.HPF (Urine sed) [#/Area] Rare Abnormal Negative /HPF [facility] Leukocyte esterase Test strip Ql (U) 250 Abnormal Negative Kat/uL [facility] Nitrite Ql (U) Negative Negative [facility] Non-Squamous Epithalial Cells, Urine 0-2 Abnormal Negative /HPF [facility] pH (U) 6.0 [pH] 5.0 - 8.0 pH [facility] Protein (U) [Mass/Vol] 200 mg/dL Abnormal Negative [facility] RBC LM.HPF (Urine sed) [#/Area] 3-5 Abnormal [facility] Specific gravity (U) [Rel density] High 1.005 - 1.030 [facility] Urobilinogen (U) [Mass/Vol] Normal Normal (0-1) mg/dL [facility] WBC LM.HPF (Urine sed) [#/Area] 6-10 Abnormal [facility] [employer] XR Chest Single viewon 08-08 Lungs clear with no acute cardiopulmonary disease process Report Dictated on Electronically Signed By: Chucho Stringer MD Electronically Signed Date/Time: 08/08/2023 7:16 AM EDT [facility] RADIOLOGY SYSTEM Patient Name: WILL ALVARADO : [...] mediastinal contours are normal. VASCULARITY: Normal BONES:Unremarkable [facility] Yvette Stringer MD - 08/08/2023 Patient [...] Electronically Signed Date/Time: 08/08/2023 7:16 AM EDT [facility] Radiology Study observation (narrative) [facility] XR Chest Single viewOrdered By: Yvette Stringer on 08-08-2023 [facility] [employer] Work Phone: Basophil percentageOrdered B y: Jared Guzman on 08-04-2023 Chloride [Moles/Vol] 107 mmol/L 98-107 [facility] Glucose [Mass/Vol] 140 mg/dL 74-106 [facility] Comment on above: Fasting Glucose resu lt greater than or equal to 126 mg/dL suggests DIABETES MELLITUS per A.D.A. criteria. Potassium [Moles/Vol] 4.7 mmol/L 3.5-5.1 [facility] Sodium [Moles/Vol] 137 mmol/L 136-145 [facility] Laboratory - Chemistry and C hemistry - challengeOrdered By: Jared Guzman on 08-04-2023 CO2 [Moles/Vol] 27.0 mmol/L 21.0-32.0 [facility] Urea nitrogen/Creatinine [Mass ratio] 29.5 mg/mg 10-20 [facility] No Panel InformationOrdered By: Jared Guzman on 08-04-2023 Estimated GFR (MDRD) Amer 85 mL/min >60 [facility] Comment on above: GFR Calc Estimated GFR (MDRD) Non-Af Amer 71 mL/min >60 [facility] Comment on above: Non- GFR Calc Serum or plasma calcium mauricio urement (mass/volume)Ordered By: Jared Guzman on 08-04-2023 Calcium [Mass/Vol] 8.6 mg/dL 8.5-10.1 [facility] Serum or plasma creatinine m easurement (mass/volume)Ordered By: Jared Guzman on 08-04-2023 Creatinine [Mass/Vol] 0.88 mg/dL 0.55-1.02 [facility] Comment on above: The validity of the calculated GFR & GFRAA in patients over 70 years has not been determined. Clinical correlation is essential. Serum or plasma urea nitroge n measurement (mass/volume)Ordered By: Jared Guzman on 08-04-2023 Urea nitrogen [Mass/Vol] 26 mg/dL 7-18 [facility] Thin prep Papanicolaou smear with manual screeningOrdered By: Jared Guzman on 08-04-2023 Thin prep Papanicolaou smear with manual screening 3 5-15 [facility] Basophil percentageOrdered B y: Jared Guzman on 08-02-2023 Chloride [Moles/Vol] 102 mmol/L 98-107 [facility] Glucose [Mass/Vol] 393 mg/dL 74-106 [facility] Comment on above: Glucose result great er than or equal to 200 mg/dLsuggests DIABETES MELLITUS per A.D.A. criteria. Potassium [Moles/Vol] 6.1 mmol/L 3.5-5.1 [facility] Sodium [Moles/Vol] 131 mmol/L 136-145 [facility] WBC (Bld) [#/Vol] 6.7 10*3/uL 4.4-11.0 [facility] Blood erythrocytes count (nu mber/volume)Ordered By: Jared Guzman on 08-02-2023 RBC (Bld) [#/Vol] 3.97 10*6/uL 4.2-5.4 [facility] Blood hemoglobin measurement (mass/volume)Ordered By: Jared Guzman on 08-02-2023 Hemoglobin (Bld) [Mass/Vol] 10.9 g/dL 12.0-15.0 [facility] Blood platelet mean volumeOr dered By: Jared Guzman on 08-02-2023 Platelet mean volume (Bld) [Entitic vol] 10.3 fL 6.2-12.0 [facility] Determination of erythrocyte mean corpuscular volume (MCV)Ordered By: Jared Guzman on 08-02-2023 MCV (RBC) [Entitic vol] 88.9 fL 81-99 [facility] Hematocrit Auto (Bld) [Volum e fraction]Ordered By: Jared Guzman on 08-02-2023 Hematocrit (Bld) [Volume fraction] 35.3 % 37-47 [facility] Laboratory - Chemistry and C hemistry - challengeOrdered By: Jared Guzman on 08-02-2023 CO2 [Moles/Vol] 22.0 mmol/L 21.0-32.0 [facility] Urea nitrogen/Creatinine [Mass ratio] 26.2 mg/mg 10-20 [facility] Laboratory - Hematology and Cell countsOrdered By: Jared Guzman on 08-02-2023 Erythrocyte distribution width (RBC) [Entitic vol] 48.3 fL 35.1-43.9 [facility] Erythrocyte distribution width (RBC) [Ratio] 14.7 % 11.6-14.6 [facility] MCH (RBC) [Entitic mass] 27.5 pg 27.0-32.0 [facility] MCHC Auto (RBC) [Mass/Vol]Or dered By: Jared Guzman on 08-02-2023 MCHC (RBC) [Mass/Vol] 30.9 g/dL 32-36 [facility] No Panel InformationOrdered By: Jared Guzman on 08-02-2023 Estimated GFR (MDRD) Amer 86 mL/min >60 [facility] Comment on above: GFR Calc Estimated GFR (MDRD) Non-Af Amer 71 mL/min >60 [facility] Comment on above: Non- GFR Calc Platelets bldOrdered By: Mike Guzman on 08-02-2023 Platelets (Bld) [#/Vol] 342 10*3/uL 150-450 [facility] Serum or plasma calcium mauricio urement (mass/volume)Ordered By: Jared Guzman on 08-02-2023 Calcium [Mass/Vol] 8.8 mg/dL 8.5-10.1 [facility] Serum or plasma creatinine m easurement (mass/volume)Ordered By: Jared Guzman on 08-02-2023 Creatinine [Mass/Vol] 0.88 mg/dL 0.55-1.02 [facility] Comment on above: The validity of the calculated GFR & GFRAA in patients over 70 years has not been determined. Clinical correlation is essential. Serum or plasma urea nitroge n measurement (mass/volume)Ordered By: Jared Guzman on 08-02-2023 Urea nitrogen [Mass/Vol] 23 mg/dL 7-18 [facility] Thin prep Papanicolaou smear with manual screeningOrdered By: Jared Guzman on 08-02-2023 Thin prep Papanicolaou smear with manual screening 7 5-15 [facility] Basophil percentageOrdered B y: Jared Guzman on 07-05-2023 Bilirubin [Mass/Vol] 0.30 mg/dL 0.20-1.00 [facility] Comment on above: For patients on eltr ombopag therapy, use of Dimension Spray TBIL is not recommended..Previous reported result: 0.30 mg/dLEdited by: PAULINE on 07/06/23:0945 AMENDED REPORT 07/06/23944 T BILI previously reported as: 0.30 mg/dL For patients on eltrombopag therapy, use of Dimension Spray TBIL is not recommended. Chloride [Moles/Vol] 108 mmol/L 98-107 [facility] Comment on above: .Previous reported r esult: 108 mmol/LEdited by: PAULINE on 07/06/23:0945 AMENDED REPORT 07/06/23944 CL previously reported as: 108 H mmol/L Glucose [Mass/Vol] 149 mg/dL 74-106 [facility] Comment on above: Fasting Glucose resu lt greater than or equal to 126 mg/dL suggests DIABETES MELLITUS per A.D.A. criteria..Previous reported result: 149 mg/dLEdited by: PAULINE on 07/06/23:0943 AMENDED REPORT 07/06/23942 GLU previously reported as: 149 H mg/dL Fasting Glucose result greater than or equal to 126 mg/dL suggests DIABETES MELLITUS per A.D.A. criteria. Potassium [Moles/Vol] 4.4 mmol/L 3.5-5.1 [facility] Comment on above: .Previous reported r esult: 4.4 mmol/LEdited by: PAULINE on 07/06/23:0945 AMENDED REPORT 07/06/23944 K previously reported as: 4.4 mmol/L Protein [Mass/Vol] 6.3 g/dL 6.4-8.2 [facility] Comment on above: .Previous reported r esult: 6.3 g/dLEdited by: PAULINE on 07/06/23:0944 AMENDED REPORT 07/06/23943 T PROT previously reported as: 6.3 L g/dL Sodium [Moles/Vol] 138 mmol/L 136-145 [facility] Comment on above: .Previous reported r esult: 138 mmol/LEdited by: PAULINE on 07/06/23:0945 AMENDED REPORT 07/06/2345 NA previously reported as: 138 mmol/L WBC (Bld) [#/Vol] 7.0 10*3/uL 4.4-11.0 [facility] Comment on above: .Previous reported r esult: 7.0 K/[id number] by: PAULINE on 07/06/23:0941 AMENDED REPORT 07/06/23940 WBC previously reported as: 7.0 K/mm3 Blood erythrocytes count (nu mber/volume)Ordered By: Jared Guzman on 07-05-2023 RBC (Bld) [#/Vol] 4.01 10*6/uL 4.2-5.4 [facility] Comment on above: .Previous reported r esult: 4.01 M/[id number] by: PAULINE on 07/06/23:0941 AMENDED REPORT 07/06/23940 RBC previously reported as: 4.01 L M/mm3 Blood hemoglobin measurement (mass/volume)Ordered By: Jared Guzman on 07-05-2023 Hemoglobin (Bld) [Mass/Vol] 10.9 g/dL 12.0-15.0 [facility] Comment on above: .Previous reported r esult: 10.9 g/dLEdited by: PAULINE on 07/06/23:0941 AMENDED REPORT 07/06/23940 HGB previously reported as: 10.9 L g/dL Blood platelet mean volumeOr dered By: Jared Guzman on 07-05-2023 Platelet mean volume (Bld) [Entitic vol] 10.1 fL 6.2-12.0 [facility] Comment on above: .Previous reported r esult: 10.1 flEdited by: PAULINE on 07/06/23:0942 AMENDED REPORT 07/06/2342 MPV previously reported as: 10.1 fl Determination of erythrocyte mean corpuscular volume (MCV)Ordered By: Jared Guzman on 07-05-2023 MCV (RBC) [Entitic vol] 89.3 fL 81-99 [facility] Comment on above: .Previous reported r esult: 89.3 fLEdited by: PAULINE on 07/06/23:0942 AMENDED REPORT 07/06/23941 MCV previously reported as: 89.3 fL Hematocrit Auto (Bld) [Volum e fraction]Ordered By: Jared Guzman on 07-05-2023 Hematocrit (Bld) [Volume fraction] 35.8 % 37-47 [facility] Comment on above: .Previous reported r esult: 35.8 %Edited by: PAULINE on 07/06/23:0942 AMENDED REPORT 07/06/23941 HCT previously reported as: 35.8 L % Laboratory - Chemistry and C hemistry - challengeOrdered By: Jared Guzman on 07-05-2023 ALP [Catalytic activity/Vol] 155 U/L 45-117 [facility] Comment on above: ..Previous reported result: 155 U/LEdited by: PAULINE on 07/06/23:0945 AMENDED REPORT 07/06/23944 ALK P previously reported as: 155 H U/L ALT [Catalytic activity/Vol] 43 U/L 13-56 [facility] Comment on above: .Previous reported r esult: 43 U/LEdited by: PAULINE on 07/06/23:0945 AMENDED REPORT 07/06/2345 ALT previously reported as: 43 U/L CO2 [Moles/Vol] 26.0 mmol/L 21.0-32.0 [facility] Comment on above: .Previous reported r esult: 26.0 mmol/LEdited by: PAULINE on 07/06/23:0946 AMENDED REPORT 07/06/2346 CO2 previously reported as: 26.0 mmol/L Globulin (S) [Mass/Vol] 3.6 g/dL 2.2-4.2 [facility] Comment on above: .Previous reported r esult: 3.6 g/dLEdited by: PAULINE on 07/06/23:0944 AMENDED REPORT 07/06/2344 GLOB previously reported as: 3.6 g/dL Urea nitrogen/Creatinine [Mass ratio] 23.7 mg/mg 10-20 [facility] Comment on above: .Previous reported r esult: 23.5 RATIOEdited by: PAULINE on 07/06/23:43 AMENDED REPORT 07/06/23942 BUN/CRE previously reported as: 23.5 H RATIO Laboratory - Hematology and Cell countsOrdered By: Jared Guzman on 07-05-2023 Erythrocyte distribution width (RBC) [Entitic vol] 47.5 fL 35.1-43.9 [facility] Comment on above: .Previous reported r esult: 47.5 flEdited by: PAULINE on 07/06/23:0942 AMENDED REPORT 07/06/23941 RDW SD previously reported as: 47.5 H fl Erythrocyte distribution width (RBC) [Ratio] 14.5 % 11.6-14.6 [facility] Comment on above: .Previous reported r esult: 14.5 %Edited by: PAULINE on 07/06/23:42 AMENDED REPORT 07/06/23941 RDW CV previously reported as: 14.5 % MCH (RBC) [Entitic mass] 27.2 pg 27.0-32.0 [facility] Comment on above: .Previous reported r esult: 27.2 pgEdited by: PAULINE on 07/06/23:0942 AMENDED REPORT 07/06/23941 MCH previously reported as: 27.2 pg MCHC Auto (RBC) [Mass/Vol]Or dered By: Jared Guzman on 07-05-2023 MCHC (RBC) [Mass/Vol] 30.4 g/dL 32-36 [facility] Comment on above: .Previous reported r esult: 30.4 g/dLEdited by: PAULINE on 07/06/23:0942 AMENDED REPORT 07/06/23941 MCHC previously reported as: 30.4 L g/dL No Panel InformationOrdered By: Jared Guzman on 07-05-2023 Estimated GFR (MDRD) Amer 137 mL/min >60 [facility] Comment on above: GFR Calc.Previous reported result: 135 mL/minEdited by: PAULINE on 07/06/23:0943 AMENDED REPORT 07/06/23942 EST GFR - AA previously reported as: 135 mL/min GFR Calc Estimated GFR (MDRD) Non-Af Amer 113 mL/min >60 [facility] Comment on above: Non- GFR Calc.Previous reported result: 112 mL/minEdited by: PAULINE on 07/06/23:0943 AMENDED REPORT 07/06/23942 EST GFR previously reported as: 112 mL/min Non- GFR Calc Platelets bldOrdered By: Mike Guzman on 07-05-2023 Platelets (Bld) [#/Vol] 352 10*3/uL 150-450 [facility] Comment on above: .Previous reported r esult: 352 [id number] by: PAULINE on 07/06/23:0942 AMENDED REPORT 07/06/23941 PLT previously reported as: 352 K/mm3 Serum or plasma albumin mauricio urement (mass/volume)Ordered By: Jared Guzman on 07-05-2023 Albumin [Mass/Vol] 2.7 g/dL 3.2-5.0 [facility] Comment on above: .Previous reported r esult: 2.7 g/dLEdited by: PAULINE on 07/06/23:0944 AMENDED REPORT 07/06/23943 ALB previously reported as: 2.7 L g/dL Serum or plasma albumin/glob ulin mass ratioOrdered By: Jared Guzman on 07-05-2023 Albumin/Globulin [Mass ratio] 0.8 {ratio} 0.9-2.4 [facility] Comment on above: .Previous reported r esult: 0.8 RATIOEdited by: PAULINE on 07/06/23:0944 AMENDED REPORT 07/06/23943 A/G previously reported as: 0.8 L RATIO Serum or plasma calcium mauricio urement (mass/volume)Ordered By: Jared Guzman on 07-05-2023 Calcium [Mass/Vol] 8.8 mg/dL 8.5-10.1 [facility] Comment on above: .Previous reported r esult: 8.8 mg/dLEdited by: PAULINE on 07/06/23:0944 AMENDED REPORT 07/06/23943 CA previously reported as: 8.8 mg/dL Serum or plasma creatinine m easurement (mass/volume)Ordered By: Jared Guzman on 07-05-2023 Creatinine [Mass/Vol] 0.76 mg/dL 0.55-1.02 [facility] Comment on above: The validity [...] 07-05-2023 Urea nitrogen [Mass/Vol] 18 mg/dL 7-18 [facility] Comment on above: .Previous reported r esult: 18 mg/dLEdited by: PAULINE on 07/06/23:0943 AMENDED REPORT 07/06/23942 BUN previously reported as: 18 mg/dL Thin prep Papanicolaou smear with manual screeningOrdered By: Jared Guzman on 07-05-2023 Thin prep Papanicolaou smear with manual screening 15 U/L 15-37 [facility] Comment on above: .Previous reported r esult: 15 U/LEdited by: PAULINE on 07/06/23:0945 AMENDED REPORT 07/06/2345 AST previously reported as: 15 U/L Thin prep Papanicolaou smear with manual screening 4 5-15 [facility] Comment on above: .Previous reported r esult: 4 Edited by: PAULINE on 07/06/23:0946 AMENDED REPORT 07/06/2346 GAP previously reported as: 4 L Laboratory - Chemistry and C hemistry - challengeon 07-01-2023 Glucose [Mass/Vol] 391 mg/dL High 70 - 100 mg/dL [facility] [employer] Glucose [Mass/Vol] 242 mg/dL High 70 - 100 mg/dL [facility] [employer] No Panel Informationon 07-01 Interpretation and review of laboratory results Abnormal [facility] Performed by: [facility], [address] [place] [id number] CLIA ID: [id number] [facility] [employer] [facility] Interpretation and review of laboratory results Abnormal [facility] Performed by: [facility], [address] [place] [id number] CLIA ID: [id number] [facility] Laboratory - Chemistry and C hemistry - challengeon 06-30-2023 Glucose [Mass/Vol] 101 mg/dL High 70 - 100 mg/dL [facility] Glucose [Mass/Vol] 131 mg/dL High 70 - 100 mg/dL [facility] Glucose [Mass/Vol] 251 mg/dL High 70 - 100 mg/dL [facility] Glucose [Mass/Vol] 317 mg/dL High 70 - 100 mg/dL [facility] [employer] No Panel Informationon 06-30 Interpretation and review of laboratory results Abnormal [facility] Performed by: [facility], [address] [place] [id number] CLIA ID: [id number] [facility] Interpretation and review of laboratory results Abnormal [facility] Performed by: [facility], [address] [place] [id number] CLIA ID: [id number] [facility] Art Benavidez M D - 06/30/2023 IMPRESSION: Sinus rhythm Abnormal R-wave progression, late transition Left ventricular hypertrophy Electronically Signed On 06-30-2023 12:43:24 EDT by Art Benavidez [facility] Interpretation and review of laboratory results Abnormal [facility] Performed by: [facility], [address] [place] [id number] CLIA ID: [id number] [facility] Interpretation and review of laboratory results Abnormal [facility] Performed by: [facility], [address] [place] [id number] CLIA ID: [id number] [facility] No Panel InformationOrdered By: Art Benavidez on 06-30-2023 P Curlew 37 degrees [employer] Work Phone: CA Interval 166 ms [employer] Work Phone: QRS Curlew -31 degrees [employer] Work Phone: QRSD Interval 112 ms [employer] Work Phone: QT Interval 413 ms [employer] Work Phone: QTC Interval 466 ms [employer] Work Phone: T Wave Curlew 22 degrees [employer] Work Phone: [employer] Work Phone: Vital signsOrdered By: Laron Benavidez on 06-30-2023 Heart rate 76 /min bpm [employer] Work Phone: CBC panel Auto (Bld)Ordered By: Alex Kwok on 06-29-2023 Erythrocyte distribution width (RBC) [Ratio] 15.3 % High 11.5 - 14.5 % [facility] [employer] Hematocrit (Bld) [Volume fraction] 32.6 % [facility] [employer] Hemoglobin (Bld) [Mass/Vol] 10.8 g/dL Low 11.7 - 18.0 g/dL [facility] [employer] Interpretation and review of laboratory results Abnormal [facility] [employer] MCH (RBC) [Entitic mass] 27.5 pg 26.0 - 34.0 pg [facility] [employer] MCHC (RBC) [Mass/Vol] 33.2 % 32.0 - 36.0 % [facility] [employer] MCV (RBC) [Entitic vol] 82.9 fL 80.0 - 98.0 fL [facility] [employer] Platelet mean volume (Bld) [Entitic vol] 7.7 fL 7.4 - 12.4 fL [facility] [employer] Platelets (Bld) [#/Vol] 361 10*3/uL 140 - 440 10*3/uL [facility] [employer] RBC (Bld) [#/Vol] 3.94 10*6/uL [facility] [employer] WBC (Bld) [#/Vol] 9.2 10*3/uL 3.6 - 10.7 10*3/uL [facility] [employer] Comprehensive metabolic 1998 panelon 06-29-2023 Albumin [Mass/Vol] 3.4 g/dL Low 3.5 - 5.0 g/dL [facility] [employer] ALP [Catalytic activity/Vol] 121 U/L 38 - 126 U/L [facility] [employer] ALT [Catalytic activity/Vol] 41 U/L [facility] Anion gap [Moles/Vol] 6 mmol/L 3 - 13 mmol/L [facility] AST [Catalytic activity/Vol] 32 U/L 15 - 46 U/L [facility] Bilirubin [Mass/Vol] 0.3 mg/dL 0.2 - 1 .3 mg/dL [facility] Calcium [Mass/Vol] 8.3 mg/dL Low 8.4 - 10. 4 mg/dL [facility] Chloride [Moles/Vol] 103 mmol/L 98 - 10 7 mmol/L [facility] CO2 [Moles/Vol] 27 mmol/L 22 - 30 mmol/L [facility] Creatinine [Mass/Vol] 0.79 mg/dL [facility] GFR/1.73 sq M.predicted MDRD (S/P/Bld) [Vol rate/Area] 87.9 mL/min/{1.73_m2} - PINF [facility] Comment on above: Calculation based on the Chronic Kidney Disease Epidemiology Collaboration (CKD-EPI) equation refit without adjustment for race Glucose [Mass/Vol] 193 mg/dL High 70 - 100 mg/dL [facility] Interpretation and review of laboratory results Abnormal [facility] Potassium [Moles/Vol] 5.0 mmol/L 3.5 - 5.1 mmol/L [facility] Protein [Mass/Vol] 6.3 g/dL 6.3 - 8.2 g/dL [facility] Sodium [Moles/Vol] 136 mmol/L 135 - 145 mmol/L [facility] Urea nitrogen [Mass/Vol] 23 mg/dL [facility] Laboratory - Chemistry and C hemistry - challengeon 06-29-2023 Glucose [Mass/Vol] 180 mg/dL High 70 - 100 mg/dL [facility] Glucose [Mass/Vol] 338 mg/dL High 70 - 100 mg/dL [facility] Glucose [Mass/Vol] 244 mg/dL High 70 - 100 mg/dL [facility] Glucose [Mass/Vol] 234 mg/dL High 70 - 100 mg/dL [facility] No Panel Informationon 06-29 Interpretation and review of laboratory results Abnormal [facility] Performed by: [facility], [address] [place] [address] [place] [address] CLIA ID: [id number] [facility] Interpretation and review of laboratory results Abnormal [facility]formed by: [facility], [address] [facility] [address] CLIA ID: [id number] [facility] Interpretation and review of laboratory results Abnormal [facility] Performed by: [facility], [address] [facility] [address] CLIA ID: [id number] [facility] Interpretation and review of laboratory results Abnormal [facility] Performed by: [facility], [address] [facility], [facility] [address] CLIA ID: [id number] [facility] Basic metabolic 1998 panelon 06-28-2023 Anion gap [Moles/Vol] 7 mmol/L 3 - 13 mmol/L [facility] Calcium [Mass/Vol] 9.1 mg/dL 8.4 - 10. 4 mg/dL [facility] Chloride [Moles/Vol] 102 mmol/L 98 - 10 7 mmol/L [facility] CO2 [Moles/Vol] 24 mmol/L 22 - 30 mmol/L [facility] Creatinine [Mass/Vol] 0.64 mg/dL [facility] GFR/1.73 sq M.predicted MDRD (S/P/Bld) [Vol rate/Area] - PINF [facility] Comment on above: Calculation based on the Chronic Kidney Disease Epidemiology Collaboration (CKD-EPI) equation refit without adjustment for race Glucose [Mass/Vol] 194 mg/dL High 70 - 100 mg/dL [facility] Interpretation and review of laboratory results Abnormal [facility] Potassium [Moles/Vol] 5.0 mmol/L 3.5 - 5.1 mmol/L [facility] Sodium [Moles/Vol] 133 mmol/L Low 135 - 145 mmol/L [facility] Urea nitrogen [Mass/Vol] 20 mg/dL [facility] CBC W Auto Differential pane l (Bld)Ordered By: Joel Houston on 06-28-2023 Basophils (Bld) [#/Vol] 0.1 10*3/uL 0.0 - 0.2 10*3/uL [facility] Basophils/100 WBC (Bld) 0.6 % 0.0 - 2.0 % [facility] Eosinophils (Bld) [#/Vol] 0.0 10*3/uL 0.0 - 0.5 10*3/uL [facility] Eosinophils/100 WBC (Bld) 0.1 % Low 1.0 - 6.0 % [facility] [employer] Erythrocyte distribution width (RBC) [Ratio] 15.4 % High 11.5 - 14.5 % [facility] Hematocrit (Bld) [Volume fraction] 35.1 % [facility] [employer] Hemoglobin (Bld) [Mass/Vol] 11.6 g/dL Low 11.7 - 18.0 g/dL [facility] [employer] Interpretation and review of laboratory results Abnormal [facility] Lymphocytes (Bld) [#/Vol] 0.6 10*3/uL Low 1.0 - 4.3 10*3/uL [facility] Lymphocytes/100 WBC (Bld) 5.4 % Low 20.0 - 40.0 % [facility] [employer] MCH (RBC) [Entitic mass] 27.3 pg 26.0 - 34.0 pg [facility] [employer] MCHC (RBC) [Mass/Vol] 33.2 % 32.0 - 36.0 % [facility] [employer] MCV (RBC) [Entitic vol] 82.3 fL 80.0 - 98.0 fL [facility] [employer] Monocytes (Bld) [#/Vol] 0.4 10*3/uL 0.0 - 0.8 10*3/uL [facility] Monocytes/100 WBC (Bld) 3.6 % 2.0 - 10.0 % [facility] [employer] Neutrophils (Bld) [#/Vol] 10.6 10*3/uL High 1.8 - 7.0 10*3/uL [facility] Neutrophils/100 WBC (Bld) 90.3 % High 40.0 - 80.0 % [facility] [employer] Nucleated RBC/100 WBC (Bld) [Ratio] 0.0 % [facility] [employer] Platelet mean volume (Bld) [Entitic vol] 7.9 fL 7.4 - 12.4 fL [facility] Platelets (Bld) [#/Vol] 384 10*3/uL 140 - 440 10*3/uL [facility] RBC (Bld) [#/Vol] 4.26 10*6/uL [facility] WBC (Bld) [#/Vol] 11.8 10*3/uL High 3.6 - 10.7 10*3/uL [facility] CTA Chest vessels WO and W [...] Bones: Multilevel flowing osteophytes consistent with DISH. [facility] Yvette Stringer MD - 06/28/2023 [...] Electronically Signed Date/Time: 06/28/2023 4:37 AM EDT [facility] Radiology Study observation (narrative) [facility] Laboratory - Chemistry and C hemistry - challengeon 06-28-2023 Glucose [Mass/Vol] 223 mg/dL High 70 - 100 mg/dL [facility] Glucose [Mass/Vol] 270 mg/dL High 70 - 100 mg/dL [facility] [employer] Troponin I.cardiac [Mass/Vol] ng/mL 0.000 - 0.034 ng/mL [facility] [employer] Glucose [Mass/Vol] 253 mg/dL High 70 - 100 mg/dL [facility] [employer] Glucose [Mass/Vol] 247 mg/dL High 70 - 100 mg/dL [facility] Troponin I.cardiac [Mass/Vol] ng/mL 0.000 - 0.034 ng/mL [facility] [employer] Natriuretic peptide B [Mass/ Vol]on 06-28-2023 Interpretation and review of laboratory results Normal [facility] Natriuretic peptide B (Bld) [Mass/Vol] 150 pg/mL <20 - 300 [facility] No Panel Informationon 06-28 Interpretation and review of laboratory results Abnormal [facility] Performed by: [facility], [address] [place], [place] [address] [place] [address] CLIA ID: [id number] [facility] Interpretation and review of laboratory results Abnormal [facility] Performed by: [facility], [address] [facility], [facility] [address] CLIA ID: [id number] [facility] Interpretation and review of laboratory results Abnormal [facility] Performed by: [facility], [address] [place], [facility] [address] CLIA ID: [id number] [facility] Interpretation and review of laboratory results Abnormal [facility] Performed by: [facility], [address] [facility], [facility] [address] CLIA ID: [id number] [facility] P [place] 44 degrees [facility] CA Interval 180 ms [facility] QRS [place] -37 degrees [facility] QRSD Interval 115 ms [facility] QT Interval 364 ms [facility] QTC Interval 481 ms [facility] T Wave [place] 53 degrees [facility] Sinus tachycardia Nonspecific IVCD with LAD Left ventricular hypertrophy Minimal ST elevation, anterolateral leads Electronically Signed On 06-28-2023 5:20:13 EDT by Rosaura Mustafa CV Rosaura Schafer, - 06/28/2023 IMPRESSION: Sinus tachycardia Nonspecific IVCD with LAD Left ventricular hypertrophy Minimal ST elevation, anterolateral leads Electronically Signed On 06-28-2023 5:20:13 EDT by Rosaura Mustafa [facility] Troponin I.cardiac [Mass/Vol ]on 06-28-2023 Interpretation and review of laboratory results Normal [facility] Patients with high levels of Biotin oral intake (ie >5 mg/day) may have falsely decreased Troponin levels. [facility] Interpretation and review of laboratory results Normal [facility] Patients with high levels of Biotin oral intake (ie >5 mg/day) may have falsely decreased Troponin levels. [facility] Vital signson 06-28-2023 Heart rate 105 /min bpm [facility] XR Chest Single viewon 06-28 Low lung volumes. No acute infiltrate or effusion. Report Dictated on Electronically Signed By: Chucho Stringer MD Electronically Signed Date/Time: 06/28/2023 3:08 AM EDT [facility] Patient Name: WILL ALVARADO : [...] VASCULARITY: Normal BONES:Unremarkable SUPPORT LINES: None OTHER: [facility] Yvette Stringer MD - 06/28/2023 Patient [...] Electronically Signed Date/Time: 06/28/2023 3:08 AM EDT [facility] [employer] Radiology Study observation (narrative) [facility] XR Chest Single viewOrdered By: Yvette Stringer on 06-28-2023 [facility] Work Phone: Basophil percentageOrdered B y: Jared Guzman on 05-31-2023 Chloride [Moles/Vol] 106 mmol/L 98-[address] [facility] Glucose [Mass/Vol] 227 mg/dL 74-106 [place] [facility] Comment on above: Glucose result great er than or equal to 200 mg/dLsuggests DIABETES MELLITUS per A.D.A. criteria. Potassium [Moles/Vol] 4.8 mmol/L 3.5-5.1 [facility] Sodium [Moles/Vol] 137 mmol/L 136-145 [facility] WBC (Bld) [#/Vol] 7.7 10*3/uL 4.4-11.0 [facility] Blood erythrocytes count (nu mber/volume)Ordered By: Jared Guzman on 05-31-2023 RBC (Bld) [#/Vol] 3.90 10*6/uL 4.6-6.2 [facility] Blood hemoglobin measurement (mass/volume)Ordered By: Jared Guzman on 05-31-2023 Hemoglobin (Bld) [Mass/Vol] 10.4 g/dL 13.0-16.5 [facility] Blood platelet mean volumeOr dered By: Jared Guzman on 05-31-2023 Platelet mean volume (Bld) [Entitic vol] 9.9 fL 6.2-12.0 [facility] Determination of erythrocyte mean corpuscular volume (MCV)Ordered By: Jared Guzman on 05-31-2023 MCV (RBC) [Entitic vol] 89.7 fL 80-94 [facility] Hematocrit Auto (Bld) [Volum e fraction]Ordered By: Jared Guzman on 05-31-2023 Hematocrit (Bld) [Volume fraction] 35.0 % 40-54 [facility] Laboratory - Chemistry and C hemistry - challengeOrdered By: Jared Guzman on 05-31-2023 CO2 [Moles/Vol] 26.0 mmol/L 21.0-32.0 [facility] Urea nitrogen/Creatinine [Mass ratio] 31.0 mg/mg 10-20 [facility] Laboratory - Hematology and Cell countsOrdered By: Jared Guzman on 05-31-2023 Erythrocyte distribution width (RBC) [Entitic vol] 46.2 fL 35.1-43.9 [facility] Erythrocyte distribution width (RBC) [Ratio] 14.3 % 11.6-14.6 [facility] MCH (RBC) [Entitic mass] 26.7 pg 27.0-32.0 [facility] MCHC Auto (RBC) [Mass/Vol]Or dered By: Jared Guzman on 05-31-2023 MCHC (RBC) [Mass/Vol] 29.7 g/dL 32-36 [facility] No Panel InformationOrdered By: Jared Guzman on 05-31-2023 Estimated GFR (MDRD) Amer 133 mL/min >60 [facility] Comment on above: GFR Calc Estimated GFR (MDRD) Non-Af Amer 110 mL/min >60 [facility] Comment on above: Non- GFR Calc Platelets bldOrdered By: Pet er Karely on 05-31-2023 Platelets (Bld) [#/Vol] 400 10*3/uL 150-450 [facility] Serum or plasma calcium mauricio urement (mass/volume)Ordered By: Jared Guzman on 05-31-2023 Calcium [Mass/Vol] 8.9 mg/dL 8.5-10.1 [facility] Serum or plasma creatinine m easurement (mass/volume)Ordered By: Jared Guzman on 05-31-2023 Creatinine [Mass/Vol] 0.78 mg/dL 0.70-1.30 [facility] Comment on above: The validity of the calculated GFR & GFRAA in patients over 70 years has not been determined. Clinical correlation is essential. Serum or plasma urea nitroge n measurement (mass/volume)Ordered By: Jared Guzman on 05-31-2023 Urea nitrogen [Mass/Vol] 24 mg/dL 7-18 [facility] Thin prep Papanicolaou smear with manual screeningOrdered By: Jared Guzman on 05-31-2023 Thin prep Papanicolaou smear with manual screening 5 5-15 [facility] Whole blood hemoglobin A1c/t otal hemoglobin ratio (mass fraction)Ordered By: Jared Guzman on 05-31-2023 HbA1c (Bld) [Mass fraction] 8.2 % 3.8-5.6 [facility] Comment on above: Normal < 5.7 % Predi abetic 5.7 - 6.4 % Diabetic >or= 6.5 % Please note range changes. Basophil percentageOrdered B y: Jared Guzman on 04-19-2023 Bilirubin [Mass/Vol] 0.20 mg/dL 0.20-1.00 [facility] Comment on above: For patients on eltr ombopag therapy, use of Dimension Spray TBIL is not recommended. Chloride [Moles/Vol] 104 mmol/L 98-107 [facility] Cholesterol [Mass/Vol] 136 mg/dL <200 [facility] Comment on above: <200 mg/dL Desirable 200-240 mg/dL Borderline >240 mg/dL High Risk Glucose [Mass/Vol] 252 mg/dL 74-106 [facility] Comment on above: Glucose result great er than or equal to 200 mg/dLsuggests DIABETES MELLITUS per A.D.A. criteria. Potassium [Moles/Vol] 4.9 mmol/L 3.5-5.1 [facility] Protein [Mass/Vol] 6.5 g/dL 6.4-8.2 [facility] Sodium [Moles/Vol] 136 mmol/L 136-145 [facility] Triglyceride [Mass/Vol] 173 mg/dL <199 [facility] Comment on above: The drugs N-Acetylcy steine and Metamizole may falsely depress this assay.Serum Triglycerides Reference Interval Normal <150 mg/dL Borderline high 150 - 199 mg/dL High 200 - 499 mg/dL Very High > or = 500 mg/dL WBC (Bld) [#/Vol] 7.4 10*3/uL 4.4-11.0 [facility] Blood erythrocytes count (nu mber/volume)Ordered By: aJred Guzman on 04-19-2023 RBC (Bld) [#/Vol] 4.12 10*6/uL 4.6-6.2 [facility] Blood hemoglobin measurement (mass/volume)Ordered By: Jared Guzman on 04-19-2023 Hemoglobin (Bld) [Mass/Vol] 11.2 g/dL 13.0-16.5 [facility] Blood platelet mean volumeOr dered By: Jared Guzman on 04-19-2023 Platelet mean volume (Bld) [Entitic vol] 10.2 fL 6.2-12.0 [facility] Determination of erythrocyte mean corpuscular volume (MCV)Ordered By: Jared Guzman on 04-19-2023 MCV (RBC) [Entitic vol] 90.8 fL 80-94 [facility] Hematocrit Auto (Bld) [Volum e fraction]Ordered By: Jared Guzman on 04-19-2023 Hematocrit (Bld) [Volume fraction] 37.4 % 40-54 [facility] Laboratory - Chemistry and C hemistry - challengeOrdered By: Jared Guzman on 04-19-2023 ALP [Catalytic activity/Vol] 176 U/L 45-117 [facility] ALT [Catalytic activity/Vol] 39 U/L 16-61 [facility] CO2 [Moles/Vol] 26.0 mmol/L 21.0-32.0 [facility] Globulin (S) [Mass/Vol] 3.5 g/dL 2.2-4.2 [facility] Urea nitrogen/Creatinine [Mass ratio] 23.7 mg/mg 10-20 [facility] Laboratory - Hematology and Cell countsOrdered By: Jared Guzman on 04-19-2023 Erythrocyte distribution width (RBC) [Entitic vol] 46.9 fL 35.1-43.9 [facility] Erythrocyte distribution width (RBC) [Ratio] 14.1 % 11.6-14.6 [facility] MCH (RBC) [Entitic mass] 27.2 pg 27.0-32.0 [facility] MCHC Auto (RBC) [Mass/Vol]Or dered By: Jared Guzman on 04-19-2023 MCHC (RBC) [Mass/Vol] 29.9 g/dL 32-36 [facility] No Panel InformationOrdered By: Jared Guzman on 04-19-2023 Estimated GFR (MDRD) Amer 128 mL/min >60 [facility] Comment on above: GFR Calc Estimated GFR (MDRD) Non-Af Amer 106 mL/min >60 [facility] Comment on above: Non- GFR Calc Platelets bldOrdered By: Mike Guzman on 04-19-2023 Platelets (Bld) [#/Vol] 361 10*3/uL 150-450 [facility] Serum or plasma albumin mauricio urement (mass/volume)Ordered By: Jared Guzman on 04-19-2023 Albumin [Mass/Vol] 3.0 g/dL 3.2-5.0 [facility] Serum or plasma albumin/glob ulin mass ratioOrdered By: Jared Guzman on 04-19-2023 Albumin/Globulin [Mass ratio] 0.9 {ratio} 0.9-2.4 [facility] Serum or plasma calcium mauricio urement (mass/volume)Ordered By: Jared Guzman on 04-19-2023 Calcium [Mass/Vol] 8.8 mg/dL 8.5-10.1 [facility] Serum or plasma cholesterol in HDL measurement (mass/volume)Ordered By: Jared Guzman on 04-19-2023 Cholesterol in HDL [Mass/Vol] 33 mg/dL >40 [facility] Comment on above: The drugs N-Acetylcy steine and Metamizole may falsely depress this assay. Reference Range HDL <40 mg/dL Low HDL Cholesterol HDL >or= 60 mg/dL High HDL Cholesterol Serum or plasma cholesterol in VLDL measurement (mass/volume)Ordered By: Jared Guzman on 04-19-2023 Cholesterol in VLDL [Mass/Vol] 35 mg/dL 5-40 [facility] Serum or plasma creatinine m easurement (mass/volume)Ordered By: Jared Guzman on 04-19-2023 Creatinine [Mass/Vol] 0.80 mg/dL 0.70-1.30 [facility] Comment on above: The validity of the calculated GFR & GFRAA in patients over 70 years has not been determined. Clinical correlation is essential. Serum or plasma low density lipoprotein (LDL) cholesterol measurement (mass/volume)Ordered By: Jared Guzman on 04-19-2023 Cholesterol in LDL [Mass/Vol] 68 mg/dL 0-130 [facility] Serum or plasma urea nitroge n measurement (mass/volume)Ordered By: Jared Guzman on 04-19-2023 Urea nitrogen [Mass/Vol] 19 mg/dL 7-18 [facility] Thin prep Papanicolaou smear with manual screeningOrdered By: Jared Guzman on 04-19-2023 Thin prep Papanicolaou smear with manual screening 21 U/L 15-37 [facility] Thin prep Papanicolaou smear with manual screening 6 5-15 [facility] Whole blood hemoglobin A1c/t otal hemoglobin ratio (mass fraction)Ordered By: Jared Guzman on 04-19-2023 HbA1c (Bld) [Mass fraction] 9.0 % 3.8-5.6 [facility] Comment on above: Normal < 5.7 % Predi abetic 5.7 - 6.4 % Diabetic >or= 6.5 % Please note range changes. Whole blood hemoglobin A1c/t otal hemoglobin ratio (mass fraction)Ordered By: Jared Guzman on 03-30-2023 HbA1c (Bld) [Mass fraction] 9.4 % 3.8-5.6 [facility] Comment on above: Normal < 5.7 % Predi abetic 5.7 - 6.4 % Diabetic >or= 6.5 % Please note range changes. Basophil percentageOrdered B y: Jared Guzman on 03-15-2023 Cholesterol [Mass/Vol] 142 mg/dL <200 [facility] Comment on above: <200 mg/dL Desirable 200-240 mg/dL Borderline >240 mg/dL High Risk Triglyceride [Mass/Vol] 149 mg/dL <199 [facility] Comment on above: The drugs N-Acetylcy steine and Metamizole may falsely depress this assay.Serum Triglycerides Reference Interval Normal <150 mg/dL Borderline high 150 - 199 mg/dL High 200 - 499 mg/dL Very High > or = 500 mg/dL Serum or plasma cholesterol in HDL measurement (mass/volume)Ordered By: Jared Guzman on 03-15-2023 Cholesterol in HDL [Mass/Vol] 32 mg/dL >40 [facility] Comment on above: The drugs N-Acetylcy steine and Metamizole may falsely depress this assay. Reference Range HDL <40 mg/dL Low HDL Cholesterol HDL >or= 60 mg/dL High HDL Cholesterol Serum or plasma cholesterol in VLDL measurement (mass/volume)Ordered By: Jared Guzman on 03-15-2023 Cholesterol in VLDL [Mass/Vol] 30 mg/dL 5-40 [facility] Serum or plasma low density lipoprotein (LDL) cholesterol measurement (mass/volume)Ordered By: Jared Guzman on 03-15-2023 Cholesterol in LDL [Mass/Vol] 80 mg/dL 0-130 [facility] Beta Hydroxybutyrateon 03-08 Beta hydroxybutyrate [Mass/Vol] 1.94 mg/dL 0.20 - 2.81 mg/dL [facility] Interpretation and review of laboratory results Normal [facility] CBC W Auto Differential pane l (Bld)Ordered By: Hina Jaramillo on 03-08-2023 Basophils (Bld) [#/Vol] 0.1 10*3/uL 0.0 - 0.2 10*3/uL [facility] Basophils/100 WBC (Bld) 0.5 % 0.0 - 2.0 % [facility] Eosinophils (Bld) [#/Vol] 0.1 10*3/uL 0.0 - 0.5 10*3/uL [facility] Eosinophils/100 WBC (Bld) 0.4 % Low 1.0 - 6.0 % [facility] [place] Erythrocyte distribution width (RBC) [Ratio] 14.6 % High 11.5 - 14.5 % [facility] [place] Hematocrit (Bld) [Volume fraction] 37.8 % [facility] [place] Hemoglobin (Bld) [Mass/Vol] 12.6 g/dL [facility] [place] Interpretation and review of laboratory results Abnormal [facility] [place] Lymphocytes (Bld) [#/Vol] 1.1 10*3/uL 1.0 - 4.3 10*3/uL [facility] [place] Lymphocytes/100 WBC (Bld) 8.4 % Low 20.0 - 40.0 % [facility] [place] MCH (RBC) [Entitic mass] 27.6 pg 26.0 - 34.0 pg [facility] [place] MCHC (RBC) [Mass/Vol] 33.3 % 32.0 - 36.0 % [facility] [place] MCV (RBC) [Entitic vol] 82.8 fL 80.0 - 98.0 fL [facility] [place] Monocytes (Bld) [#/Vol] 0.7 10*3/uL 0.0 - 0.8 10*3/uL [facility] [place] Monocytes/100 WBC (Bld) 5.5 % 2.0 - 10.0 % [facility] [place] Neutrophils (Bld) [#/Vol] 10.9 10*3/uL High 1.8 - 7.0 10*3/uL [facility] [place] Neutrophils/100 WBC (Bld) 85.2 % High 40.0 - 80.0 % [facility] [place] Nucleated RBC/100 WBC (Bld) [Ratio] 0.1 % [facility] [place] Platelet mean volume (Bld) [Entitic vol] 8.2 fL 7.4 - 12.4 fL [facility] [place] Platelets (Bld) [#/Vol] 362 10*3/uL 140 - 440 10*3/uL [facility] [place] RBC (Bld) [#/Vol] 4.56 10*6/uL [facility] [place] WBC (Bld) [#/Vol] 12.8 10*3/uL High 3.6 - 10.7 10*3/uL [facility] CT Abdomen WO contraston 1. No acute abdominal or pelvic process to explain symptoms. Report Dictated on Electronically Signed By: Abner Palacio Electronically Signed Date/Time: 03/08/2023 2:14 PM [facility]OLOGY [facility] 1965 [id number] Exam Date/Time: 03/08/2023 13:54 Procedure: CT ABDOMEN [...] evident. Osseous structures: Mild lumbar degenerative spondylosis. [facility] RADIOLOGY [facility] Abner Palacio DO - 03/08/2023 Patient Name: [facility]TO [facility] 1965 [id number] Exam Date/Time: 03/08/2023 13:54 Procedure: CT ABDOMEN [...] Electronically Signed Date/Time: 03/08/2023 2:14 PM EDT [facility] [place] Radiology Study observation (narrative) [facility] [place] CT Abdomen WO contrastOrdere d By: Abner Palacio on 03-08-2023 [facility] [employer] Work Phone: Comprehensive metabolic 1998 panelon 03-08-2023 Albumin [Mass/Vol] 4.1 g/dL 3.5 - 5.0 g/dL [facility] [employer] ALP [Catalytic activity/Vol] 158 U/L High 38 - 126 U/L [facility] [employer] ALT [Catalytic activity/Vol] 41 U/L [facility] [place] Anion gap [Moles/Vol] 8 mmol/L 3 - 13 mmol/L [facility] [place] AST [Catalytic activity/Vol] 29 U/L 15 - 46 U/L [facility] [place] Bilirubin [Mass/Vol] 0.5 mg/dL 0.2 - 1 .3 mg/dL [facility] [place] Calcium [Mass/Vol] 8.5 mg/dL 8.4 - 10. 4 mg/dL [facility] [place] Chloride [Moles/Vol] 102 mmol/L 98 - 10 7 mmol/L [facility] [place] CO2 [Moles/Vol] 23 mmol/L 22 - 30 mmol/L [facility] [place] Creatinine [Mass/Vol] 0.56 mg/dL [facility] GFR/1.73 sq M.predicted MDRD (S/P/Bld) [Vol rate/Area] - PINF [facility] [place] Comment on above: Calculation based on the Chronic Kidney Disease Epidemiology Collaboration (CKD-EPI) equation refit without adjustment for race Glucose [Mass/Vol] 197 mg/dL High 70 - 100 mg/dL [facility] [place] Interpretation and review of laboratory results Abnormal [facility] [place] Potassium [Moles/Vol] 4.7 mmol/L 3.5 - 5.1 mmol/L [facility] [place] Protein [Mass/Vol] 7.4 g/dL 6.3 - 8.2 g/dL [facility] [place] Sodium [Moles/Vol] 133 mmol/L Low 135 - 145 mmol/L [facility] [place] Urea nitrogen [Mass/Vol] 20 mg/dL [facility] [place] Lipaseon 03-08-2023 Lipase [Catalytic activity/Vol] 45 U/L 23 - 300 U/L [facility] [employer] Lipase [Catalytic activity/V ol]on 03-08-2023 Interpretation and review of laboratory results Normal [facility] [place] No Panel Informationon 03-08 [facility] [place] POCT glucose meteron 023 Glucose [Mass/Vol] 167 mg/dL High 70 - 100 mg/dL [facility] [place] Interpretation and review of laboratory results Abnormal [facility] [place] Performed by: [facility], [address] [place] [id number] CLIA ID: [id number] [facility] Basophil percentageOrdered B y: Raj Caicedo on 01-13-2023 Cholesterol [Mass/Vol] 156 mg/dL <200 [facility] Comment on above: <200 mg/dL Desirable 200-240 mg/dL Borderline >240 mg/dL High Risk Triglyceride [Mass/Vol] 235 mg/dL <199 [facility] Comment on above: The drugs N-Acetylcy steine and Metamizole may falsely depress this assay.Serum Triglycerides Reference Interval Normal <150 mg/dL Borderline high 150 - 199 mg/dL High 200 - 499 mg/dL Very High > or = 500 mg/dL Serum or plasma cholesterol in HDL measurement (mass/volume)Ordered By: Raj Caicedo on 01-13-2023 Cholesterol in HDL [Mass/Vol] 37 mg/dL >40 [facility] Comment on above: The drugs N-Acetylcy steine and Metamizole may falsely depress this assay. Reference Range HDL <40 mg/dL Low HDL Cholesterol HDL >or= 60 mg/dL High HDL Cholesterol Serum or plasma cholesterol in VLDL measurement (mass/volume)Ordered By: Raj Caicedo on 01-13-2023 Cholesterol in VLDL [Mass/Vol] 47 mg/dL 5-40 [facility] Serum or plasma low density lipoprotein (LDL) cholesterol measurement (mass/volume)Ordered By: Raj Caicedo on 01-13-2023 Cholesterol in LDL [Mass/Vol] 72 mg/dL 0-130 [facility] Whole blood hemoglobin A1c/t otal hemoglobin ratio (mass fraction)Ordered By: Jared Guzman on 12-02-2022 HbA1c (Bld) [Mass fraction] 9.5 % 3.8-5.6 [facility] Comment on above: Normal < 5.7 % Predi abetic 5.7 - 6.4 % Diabetic >or= 6.5 % Please note range changes. Basophil percentageOrdered B y: Jared Guzman on 10-27-2022 Bilirubin [Mass/Vol] 0.30 mg/dL 0.20-1.00 [facility] Comment on above: For patients on eltr ombopag therapy, use of Dimension Spray TBIL is not recommended. Chloride [Moles/Vol] 104 mmol/L 98-107 [facility] Cholesterol [Mass/Vol] 150 mg/dL <200 [facility] Comment on above: <200 mg/dL Desirable 200-240 mg/dL Borderline >240 mg/dL High Risk Glucose [Mass/Vol] 217 mg/dL 74-106 [facility] [place] Comment on above: Glucose result great er than or equal to 200 mg/dLsuggests DIABETES MELLITUS per A.D.A. criteria. Potassium [Moles/Vol] 4.9 mmol/L 3.5-5.1 [facility] Protein [Mass/Vol] 6.5 g/dL 6.4-8.2 [facility] [place] Sodium [Moles/Vol] 136 mmol/L 136-145 [facility] [place] Triglyceride [Mass/Vol] 197 mg/dL <199 [facility] Comment on above: The drugs N-Acetylcy steine and Metamizole may falsely depress this assay.Serum Triglycerides Reference Interval Normal <150 mg/dL Borderline high 150 - 199 mg/dL High 200 - 499 mg/dL Very High > or = 500 mg/dL WBC (Bld) [#/Vol] 7.5 10*3/uL 4.4-11.0 [facility] [place] Blood erythrocytes count (nu mber/volume)Ordered By: Jared Guzman on 10-27-2022 RBC (Bld) [#/Vol] 4.03 10*6/uL 4.6-6.2 [facility] Blood hemoglobin measurement (mass/volume)Ordered By: Jared Guzman on 10-27-2022 Hemoglobin (Bld) [Mass/Vol] 11.3 g/dL 13.0-16.5 [facility] Blood platelet mean volumeOr dered By: Jared Guzman on 10-27-2022 Platelet mean volume (Bld) [Entitic vol] 10.1 fL 6.2-12.0 [facility] Determination of erythrocyte mean corpuscular volume (MCV)Ordered By: Jared Guzman on 10-27-2022 MCV (RBC) [Entitic vol] 89.3 fL 80-94 [facility] Hematocrit Auto (Bld) [Volum e fraction]Ordered By: Jared Guzman on 10-27-2022 Hematocrit (Bld) [Volume fraction] 36.0 % 40-54 [facility] Laboratory - Chemistry and C hemistry - challengeOrdered By: Jared Guzman on 10-27-2022 ALP [Catalytic activity/Vol] 179 U/L 45-117 [facility] ALT [Catalytic activity/Vol] 41 U/L 16-61 [facility] CO2 [Moles/Vol] 26.0 mmol/L 21.0-32.0 [facility] Globulin (S) [Mass/Vol] 3.4 g/dL 2.2-4.2 [facility] Urea nitrogen/Creatinine [Mass ratio] 27.7 mg/mg 10-20 [facility] Laboratory - Hematology and Cell countsOrdered By: Jared Guzman on 10-27-2022 Erythrocyte distribution width (RBC) [Entitic vol] 45.3 fL 35.1-43.9 [facility] Erythrocyte distribution width (RBC) [Ratio] 13.8 % 11.6-14.6 [facility] MCH (RBC) [Entitic mass] 28.0 pg 27.0-32.0 [facility] MCHC Auto (RBC) [Mass/Vol]Or dered By: Jared Guzman on 10-27-2022 MCHC (RBC) [Mass/Vol] 31.4 g/dL 32-36 [facility] No Panel InformationOrdered By: Jared Guzman on 10-27-2022 Estimated GFR (MDRD) Amer 123 mL/min >60 [facility] Comment on above: GFR Calc Estimated GFR (MDRD) Non-Af Amer 102 mL/min >60 [facility] Comment on above: Non- GFR Calc Platelets bldOrdered By: Mike Guzman on 10-27-2022 Platelets (Bld) [#/Vol] 343 10*3/uL 150-450 [facility] Serum or plasma albumin mauricio urement (mass/volume)Ordered By: Jared Guzman on 10-27-2022 Albumin [Mass/Vol] 3.1 g/dL 3.2-5.0 [facility] [place] Serum or plasma albumin/glob ulin mass ratioOrdered By: Jared Guzman on 10-27-2022 Albumin/Globulin [Mass ratio] 0.9 {ratio} 0.9-2.4 [facility] Serum or plasma calcium mauricio urement (mass/volume)Ordered By: Jared Guzman on 10-27-2022 Calcium [Mass/Vol] 9.0 mg/dL 8.5-10.1 [facility] Serum or plasma cholesterol in HDL measurement (mass/volume)Ordered By: Jared Guzman on 10-27-2022 Cholesterol in HDL [Mass/Vol] 34 mg/dL >40 [facility] Comment on above: The drugs N-Acetylcy steine and Metamizole may falsely depress this assay. Reference Range HDL <40 mg/dL Low HDL Cholesterol HDL >or= 60 mg/dL High HDL Cholesterol Serum or plasma cholesterol in VLDL measurement (mass/volume)Ordered By: Jared Guzman on 10-27-2022 Cholesterol in VLDL [Mass/Vol] 39 mg/dL 5-40 [facility] Serum or plasma creatinine m easurement (mass/volume)Ordered By: Jared Guzman on 10-27-2022 Creatinine [Mass/Vol] 0.83 mg/dL 0.70-1.30 [facility] Comment on above: The validity of the calculated GFR & GFRAA in patients over 70 years has not been determined. Clinical correlation is essential. Serum or plasma low density lipoprotein (LDL) cholesterol measurement (mass/volume)Ordered By: Jared Guzman on 10-27-2022 Cholesterol in LDL [Mass/Vol] 77 mg/dL 0-130 [facility] Serum or plasma urea nitroge n measurement (mass/volume)Ordered By: Jared Guzman on 10-27-2022 Urea nitrogen [Mass/Vol] 23 mg/dL 7-18 [facility] Thin prep Papanicolaou smear with manual screeningOrdered By: Jared Guzman on 10-27-2022 Thin prep Papanicolaou smear with manual screening 16 U/L 15-37 [facility] Thin prep Papanicolaou smear with manual screening 6 5-15 [facility] Basophil percentageon 2021 Chloride [Moles/Vol] 105 mmol/L 98-107 [facility] Work Phone: Glucose [Mass/Vol] 188 mg/dL 74-106 [facility] [place] Work Phone: Comment on above: Fasting Glucose resu lt greater than or equal to 126 mg/dL suggests DIABETES MELLITUS per A.D.A. criteria. Potassium [Moles/Vol] 5.1 mmol/L 3.5-5.1 [facility] Work Phone: Sodium [Moles/Vol] 134 mmol/L 136-145 [facility] [place] Work Phone: WBC (Bld) [#/Vol] 9.0 10*3/uL 4.4-11.0 [facility] Work Phone: Blood erythrocytes count (nu mber/volume)on 06-24-2022 RBC (Bld) [#/Vol] 4.12 10*6/uL 4.6-6.2 [facility] Work Phone: Blood hemoglobin measurement (mass/volume)on 06-24-2022 Hemoglobin (Bld) [Mass/Vol] 11.5 g/dL 13.0-16.5 [facility] Work Phone: Blood platelet mean volumeon 06-24-2022 Platelet mean volume (Bld) [Entitic vol] 10.7 fL 6.2-12.0 [facility] Work Phone: Determination of erythrocyte mean corpuscular volume (MCV)on 06-24-2022 MCV (RBC) [Entitic vol] 87.9 fL 80-94 [facility] Work Phone: Hematocrit Auto (Bld) [Volum e fraction]on 06-24-2022 Hematocrit (Bld) [Volume fraction] 36.2 % 40-54 [facility] Work Phone: Laboratory - Chemistry and C hemistry - challengeon 06-24-2022 CO2 [Moles/Vol] 22.0 mmol/L 21.0-32.0 [facility] Work Phone: Urea nitrogen/Creatinine [Mass ratio] 42.1 mg/mg 10-20 [facility] Work Phone: Laboratory - Hematology and Cell countson 06-24-2022 Erythrocyte distribution width (RBC) [Entitic vol] 45.2 fL 35.1-43.9 [facility] Work Phone: Erythrocyte distribution width (RBC) [Ratio] 14.1 % 11.6-14.6 [facility] Work Phone: MCH (RBC) [Entitic mass] 27.9 pg 27.0-32.0 [facility] Work Phone: MCHC Auto (RBC) [Mass/Vol]on 06-24-2022 MCHC (RBC) [Mass/Vol] 31.8 g/dL 32-36 [facility] Work Phone: No Panel Informationon 06-24 Estimated GFR (MDRD) Amer 119 mL/min >60 [facility] Work Phone: Comment on above: GFR Calc Estimated GFR (MDRD) Non-Af Amer 99 mL/min >60 [facility] Work Phone: Comment on above: Non- GFR Calc Platelets bldon 06-24-2022 Platelets (Bld) [#/Vol] 396 10*3/uL 150-450 [facility] Work Phone: Serum or plasma calcium mauricio urement (mass/volume)on 06-24-2022 Calcium [Mass/Vol] 9.1 mg/dL 8.5-10.1 [facility] [place] Work Phone: Serum or plasma creatinine m easurement (mass/volume)on 06-24-2022 Creatinine [Mass/Vol] 0.86 mg/dL 0.70-1.30 [facility] Work Phone: Comment on above: The validity of the calculated GFR & GFRAA in patients over 70 years has not been determined. Clinical correlation is essential. Serum or plasma urea nitroge n measurement (mass/volume)on 06-24-2022 Urea nitrogen [Mass/Vol] 36 mg/dL 7-18 [facility] Work Phone: Thin prep Papanicolaou smear with manual screeningon 06-24-2022 Thin prep Papanicolaou smear with manual screening 7 5-15 [facility] Work Phone: Basophil percentageon 2021 Bilirubin [Mass/Vol] 0.20 mg/dL 0.20-1.00 [facility] Work Phone: Comment on above: For patients on eltr ombopag therapy, use of Dimension Spray TBIL is not recommended. Chloride [Moles/Vol] 104 mmol/L 98-107 [facility] Work Phone: Glucose [Mass/Vol] 299 mg/dL 74-106 [facility] Work Phone: Comment on above: Glucose result great er than or equal to 200 mg/dLsuggests DIABETES MELLITUS per A.D.A. criteria. Potassium [Moles/Vol] 5.0 mmol/L 3.5-5.1 [facility] Work Phone: Protein [Mass/Vol] 6.7 g/dL 6.4-8.2 [facility] Work Phone: Sodium [Moles/Vol] 135 mmol/L 136-145 [facility] Work Phone: WBC (Bld) [#/Vol] 7.9 10*3/uL 4.4-11.0 [facility] Work Phone: Blood erythrocytes count (nu mber/volume)on 05-25-2022 RBC (Bld) [#/Vol] 3.86 10*6/uL 4.6-6.2 [facility] Work Phone: Blood hemoglobin measurement (mass/volume)on 05-25-2022 Hemoglobin (Bld) [Mass/Vol] 10.5 g/dL 13.0-16.5 [facility] Work Phone: Blood platelet mean volumeon 05-25-2022 Platelet mean volume (Bld) [Entitic vol] 10.5 fL 6.2-12.0 [facility] Work Phone: Determination of erythrocyte mean corpuscular volume (MCV)on 05-25-2022 MCV (RBC) [Entitic vol] 88.1 fL 80-94 [facility] Work Phone: Hematocrit Auto (Bld) [Volum e fraction]on 05-25-2022 Hematocrit (Bld) [Volume fraction] 34.0 % 40-54 [facility] Work Phone: Laboratory - Chemistry and C hemistry - challengeon 05-25-2022 ALP [Catalytic activity/Vol] 187 U/L 45-117 [facility] Work Phone: ALT [Catalytic activity/Vol] 37 U/L 16-61 [facility] Work Phone: CO2 [Moles/Vol] 25.0 mmol/L 21.0-32.0 [facility] Work Phone: Globulin (S) [Mass/Vol] 3.8 g/dL 2.2-4.2 [facility] Work Phone: Urea nitrogen/Creatinine [Mass ratio] 27.5 mg/mg 10-20 [facility] Work Phone: Laboratory - Hematology and Cell countson 05-25-2022 Erythrocyte distribution width (RBC) [Entitic vol] 45.1 fL 35.1-43.9 [facility] Work Phone: Erythrocyte distribution width (RBC) [Ratio] 14.1 % 11.6-14.6 [facility] Work Phone: MCH (RBC) [Entitic mass] 27.2 pg 27.0-32.0 [facility] Work Phone: MCHC Auto (RBC) [Mass/Vol]on 05-25-2022 MCHC (RBC) [Mass/Vol] 30.9 g/dL 32-36 [facility] Work Phone: No Panel Informationon 05-25 Estimated GFR (MDRD) Amer 123 mL/min >60 [facility] Work Phone: Comment on above: GFR Calc Estimated GFR (MDRD) Non-Af Amer 101 mL/min >60 [facility] Work Phone: Comment on above: Non- GFR Calc Platelets bldon 05-25-2022 Platelets (Bld) [#/Vol] 320 10*3/uL 150-450 [facility] Work Phone: Serum or plasma albumin mauricio urement (mass/volume)on 05-25-2022 Albumin [Mass/Vol] 2.9 g/dL 3.2-5.0 [facility] [place] Work Phone: Serum or plasma albumin/glob ulin mass ratioon 05-25-2022 Albumin/Globulin [Mass ratio] 0.8 {ratio} 0.9-2.4 [facility] Work Phone: Serum or plasma calcium mauricio urement (mass/volume)on 05-25-2022 Calcium [Mass/Vol] 9.0 mg/dL 8.5-10.1 [facility] Work Phone: Serum or plasma creatinine m easurement (mass/volume)on 05-25-2022 Creatinine [Mass/Vol] 0.84 mg/dL 0.70-1.30 [facility] Work Phone: Comment on above: The validity of the calculated GFR & GFRAA in patients over 70 years has not been determined. Clinical correlation is essential. Serum or plasma urea nitroge n measurement (mass/volume)on 05-25-2022 Urea nitrogen [Mass/Vol] 23 mg/dL 7-18 [facility] Work Phone: Thin prep Papanicolaou smear with manual screeningon 05-25-2022 Thin prep Papanicolaou smear with manual screening 14 U/L 15-37 [facility] Work Phone: Thin prep Papanicolaou smear with manual screening 6 5-15 [facility] Work Phone: Basophil percentageon 2021 Cholesterol [Mass/Vol] 135 mg/dL <200 [facility] Work Phone: Comment on above: <200 mg/dL Desirable 200-240 mg/dL Borderline >240 mg/dL High Risk Triglyceride [Mass/Vol] 183 mg/dL <199 [facility] Work Phone: Comment on above: The drugs N-Acetylcy steine and Metamizole may falsely depress this assay.Serum Triglycerides Reference Interval Normal <150 mg/dL Borderline high 150 - 199 mg/dL High 200 - 499 mg/dL Very High > or = 500 mg/dL Serum or plasma cholesterol in HDL measurement (mass/volume)on 04-27-2022 Cholesterol in HDL [Mass/Vol] 35 mg/dL >40 [facility] Work Phone: Comment on above: The drugs N-Acetylcy steine and Metamizole may falsely depress this assay. Reference Range HDL <40 mg/dL Low HDL Cholesterol HDL >or= 60 mg/dL High HDL Cholesterol Serum or plasma cholesterol in VLDL measurement (mass/volume)on 04-27-2022 Cholesterol in VLDL [Mass/Vol] 37 mg/dL 5-40 [facility] Work Phone: Serum or plasma low density lipoprotein (LDL) cholesterol measurement (mass/volume)on 04-27-2022 Cholesterol in LDL [Mass/Vol] 63 mg/dL 0-130 [facility] Work Phone: Basophil percentageon 2021 Bilirubin [Mass/Vol] 0.30 mg/dL 0.20-1.00 [facility] Work Phone: Comment on above: For patients on eltr ombopag therapy, use of Dimension Spray TBIL is not recommended. Chloride [Moles/Vol] 105 mmol/L 98-107 [facility] Work Phone: Glucose [Mass/Vol] 260 mg/dL 74-106 [facility] Work Phone: Comment on above: Glucose result great er than or equal to 200 mg/dLsuggests DIABETES MELLITUS per A.D.A. criteria. Potassium [Moles/Vol] 4.7 mmol/L 3.5-5.1 [facility] Work Phone: Protein [Mass/Vol] 6.8 g/dL 6.4-8.2 [facility] Work Phone: Sodium [Moles/Vol] 134 mmol/L 136-145 [facility] Work Phone: WBC (Bld) [#/Vol] 8.9 10*3/uL 4.4-11.0 [facility] Work Phone: Blood erythrocytes count (nu mber/volume)on 04-13-2022 RBC (Bld) [#/Vol] 3.91 10*6/uL 4.6-6.[facility]: Blood hemoglobin measurement (mass/volume)on 04-13-2022 Hemoglobin (Bld) [Mass/Vol] 11.0 g/dL 13.0-16.5 [facility] Work Phone: Blood platelet mean volumeon 04-13-2022 Platelet mean volume (Bld) [Entitic vol] 10.3 fL 6.2-12.0 [facility] Work Phone: Determination of erythrocyte mean corpuscular volume (MCV)on 04-13-2022 MCV (RBC) [Entitic vol] 87.7 fL 80-94 [facility] Work Phone: Hematocrit Auto (Bld) [Volum e fraction]on 04-13-2022 Hematocrit (Bld) [Volume fraction] 34.3 % 40-54 [facility] Work Phone: Laboratory - Chemistry and C hemistry - challengeon 04-13-2022 ALP [Catalytic activity/Vol] 189 U/L 45-117 [facility] Work Phone: ALT [Catalytic activity/Vol] 43 U/L 16-61 [facility] Work Phone: CO2 [Moles/Vol] 23.0 mmol/L 21.0-32.0 [facility] Work Phone: Globulin (S) [Mass/Vol] 3.6 g/dL 2.2-4.2 [facility] Work Phone: Urea nitrogen/Creatinine [Mass ratio] 34.9 mg/mg 10-20 [facility] Work Phone: Laboratory - Hematology and Cell countson 04-13-2022 Erythrocyte distribution width (RBC) [Entitic vol] 42.3 fL 35.1-43.9 [facility] Work Phone: Erythrocyte distribution width (RBC) [Ratio] 13.2 % 11.6-14.6 [facility] Work Phone: MCH (RBC) [Entitic mass] 28.1 pg 27.0-32.0 [facility] Work Phone: MCHC Auto (RBC) [Mass/Vol]on 04-13-2022 MCHC (RBC) [Mass/Vol] 32.1 g/dL 32-36 [facility] Work Phone: No Panel Informationon 04-13 Estimated GFR (MDRD) Amer 134 mL/min >60 [facility] Work Phone: Comment on above: GFR Calc Estimated GFR (MDRD) Non-Af Amer 111 mL/min >60 [facility] Work Phone: Comment on above: Non- GFR Calc Platelets bldon 04-13-2022 Platelets (Bld) [#/Vol] 310 10*3/uL 150-450 [facility] Work Phone: Serum or plasma albumin mauricio urement (mass/volume)on 04-13-2022 Albumin [Mass/Vol] 3.2 g/dL 3.2-5.0 [facility] Work Phone: Serum or plasma albumin/glob ulin mass ratioon 04-13-2022 Albumin/Globulin [Mass ratio] 0.9 {ratio} 0.9-2.4 [facility] Work Phone: Serum or plasma calcium mauricio urement (mass/volume)on 04-13-2022 Calcium [Mass/Vol] 9.1 mg/dL 8.5-10.1 [facility] Work Phone: Serum or plasma creatinine m easurement (mass/volume)on 04-13-2022 Creatinine [Mass/Vol] 0.77 mg/dL 0.70-1.30 [facility] Work Phone: Comment on above: The validity of the calculated GFR & GFRAA in patients over 70 years has not been determined. Clinical correlation is essential. Serum or plasma urea nitroge n measurement (mass/volume)on 04-13-2022 Urea nitrogen [Mass/Vol] 27 mg/dL 7-18 [facility] Work Phone: Thin prep Papanicolaou smear with manual screeningon 04-13-2022 Thin prep Papanicolaou smear with manual screening 16 U/L 15-37 [facility] Work Phone: Thin prep Papanicolaou smear with manual screening 6 5-15 [facility] Work Phone: Basophil percentageon 2021 Chloride [Moles/Vol] 105 mmol/L 98-107 [facility] Work Phone: Glucose [Mass/Vol] 284 mg/dL 74-106 [facility] Work Phone: Comment on above: Glucose result great er than or equal to 200 mg/dLsuggests DIABETES MELLITUS per A.D.A. criteria. Potassium [Moles/Vol] 4.6 mmol/L 3.5-5.1 [facility] Work Phone: Sodium [Moles/Vol] 134 mmol/L 136-145 [facility] Work Phone: WBC (Bld) [#/Vol] 7.7 10*3/uL 4.4-11.0 [facility] Work Phone: Blood erythrocytes count (nu mber/volume)on 03-02-2022 RBC (Bld) [#/Vol] 3.83 10*6/uL 4.6-6.2 [facility] Work Phone: Blood hemoglobin measurement (mass/volume)on 03-02-2022 Hemoglobin (Bld) [Mass/Vol] 10.7 g/dL 13.0-16.5 [facility] Work Phone: Blood platelet mean volumeon 03-02-2022 Platelet mean volume (Bld) [Entitic vol] 10.6 fL 6.2-12.0 [facility] Work Phone: Determination of erythrocyte mean corpuscular volume (MCV)on 03-02-2022 MCV (RBC) [Entitic vol] 90.1 fL 80-94 [facility] Work Phone: Hematocrit Auto (Bld) [Volum e fraction]on 03-02-2022 Hematocrit (Bld) [Volume fraction] 34.5 % 40-54 [facility] Work Phone: Laboratory - Chemistry and C hemistry - challengeon 03-02-2022 CO2 [Moles/Vol] 22.0 mmol/L 21.0-32.0 [facility] Work Phone: Urea nitrogen/Creatinine [Mass ratio] 31.8 mg/mg 10-20 [facility] Work Phone: Laboratory - Hematology and Cell countson 03-02-2022 Erythrocyte distribution width (RBC) [Entitic vol] 44.5 fL 35.1-43.9 [facility] Work Phone: Erythrocyte distribution width (RBC) [Ratio] 13.5 % 11.6-14.6 [facility] Work Phone: MCH (RBC) [Entitic mass] 27.9 pg 27.0-32.0 [facility] Work Phone: MCHC Auto (RBC) [Mass/Vol]on 03-02-2022 MCHC (RBC) [Mass/Vol] 31.0 g/dL 32-36 [facility] Work Phone: No Panel Informationon 03-02 Estimated GFR (MDRD) Amer 132 mL/min >60 [facility] Work Phone: Comment on above: GFR Calc Estimated GFR (MDRD) Non-Af Amer 109 mL/min >60 [facility] Work Phone: Comment on above: Non- GFR Calc Platelets bldon 03-02-2022 Platelets (Bld) [#/Vol] 310 10*3/uL 150-450 [facility] Work Phone: Serum or plasma calcium mauricio urement (mass/volume)on 03-02-2022 Calcium [Mass/Vol] 9.0 mg/dL 8.5-10.1 [facility] Work Phone: Serum or plasma creatinine m easurement (mass/volume)on 03-02-2022 Creatinine [Mass/Vol] 0.79 mg/dL 0.70-1.30 [facility] Work Phone: Comment on above: The validity of the calculated GFR & GFRAA in patients over 70 years has not been determined. Clinical correlation is essential. Serum or plasma urea nitroge n measurement (mass/volume)on 03-02-2022 Urea nitrogen [Mass/Vol] 25 mg/dL 7-18 [facility] Work Phone: Thin prep Papanicolaou smear with manual screeningon 03-02-2022 Thin prep Papanicolaou smear with manual screening 7 5-15 [facility] Work Phone: Basophil percentageon 2021 Bilirubin [Mass/Vol] 0.30 mg/dL 0.20-1.00 [facility] Work Phone: Comment on above: For patients on eltr ombopag therapy, use of Dimension Spray TBIL is not recommended. Chloride [Moles/Vol] 103 mmol/L 98-107 [facility] Work Phone: Glucose [Mass/Vol] 334 mg/dL 74-106 [facility] Work Phone: Comment on above: Glucose result great er than or equal to 200 mg/dLsuggests DIABETES MELLITUS per A.D.A. criteria. Potassium [Moles/Vol] 5.0 mmol/L 3.5-5.1 [facility] Work Phone: Protein [Mass/Vol] 6.8 g/dL 6.4-8.2 [facility] Work Phone: Sodium [Moles/Vol] 135 mmol/L 136-145 [facility] Work Phone: WBC (Bld) [#/Vol] 7.0 10*3/uL 4.4-11.0 [facility] Work Phone: Blood erythrocytes count (nu mber/volume)on 01-29-2022 RBC (Bld) [#/Vol] 3.91 10*6/uL 4.6-6.2 [facility] Work Phone: Blood hemoglobin measurement (mass/volume)on 01-29-2022 Hemoglobin (Bld) [Mass/Vol] 10.9 g/dL 13.0-16.5 [facility] Work Phone: Blood platelet mean volumeon 01-29-2022 Platelet mean volume (Bld) [Entitic vol] 10.9 fL 6.2-12.0 [facility] Work Phone: Determination of erythrocyte mean corpuscular volume (MCV)on 01-29-2022 MCV (RBC) [Entitic vol] 89.8 fL 80-94 [facility] Work Phone: Hematocrit Auto (Bld) [Volum e fraction]on 01-29-2022 Hematocrit (Bld) [Volume fraction] 35.1 % 40-54 [facility] Work Phone: Laboratory - Chemistry and C hemistry - challengeon 01-29-2022 ALP [Catalytic activity/Vol] 194 U/L 45-117 [facility] Work Phone: ALT [Catalytic activity/Vol] 38 U/L 16-61 [facility] Work Phone: CO2 [Moles/Vol] 27.0 mmol/L 21.0-32.0 [facility] Work Phone: Globulin (S) [Mass/Vol] 3.5 g/dL 2.2-4.2 [facility] Work Phone: Urea nitrogen/Creatinine [Mass ratio] 20.6 mg/mg 10-20 [facility] Work Phone: Laboratory - Hematology and Cell countson 01-29-2022 Erythrocyte distribution width (RBC) [Entitic vol] 43.8 fL 35.1-43.9 [facility] Work Phone: Erythrocyte distribution width (RBC) [Ratio] 13.3 % 11.6-14.6 [facility] Work Phone: MCH (RBC) [Entitic mass] 27.9 pg 27.0-32.0 [facility] Work Phone: MCHC Auto (RBC) [Mass/Vol]on 01-29-2022 MCHC (RBC) [Mass/Vol] 31.1 g/dL 32-36 [facility] Work Phone: No Panel Informationon 01-29 Estimated GFR (MDRD) Amer 117 mL/min >60 [facility] Work Phone: Comment on above: GFR Calc Estimated GFR (MDRD) Non-Af Amer 97 mL/min >60 [facility] Work Phone: Comment on above: Non- GFR Calc Platelets bldon 01-29-2022 Platelets (Bld) [#/Vol] 306 10*3/uL 150-450 [facility] Work Phone: Serum or plasma albumin mauricio urement (mass/volume)on 01-29-2022 Albumin [Mass/Vol] 3.3 g/dL 3.2-5.0 [facility] Work Phone: Serum or plasma albumin/glob ulin mass ratioon 01-29-2022 Albumin/Globulin [Mass ratio] 0.9 {ratio} 0.9-2.4 [facility] Work Phone: Serum or plasma calcium mauricio urement (mass/volume)on 01-29-2022 Calcium [Mass/Vol] 8.8 mg/dL 8.5-10.1 [facility] Work Phone: Serum or plasma creatinine m easurement (mass/volume)on 01-29-2022 Creatinine [Mass/Vol] 0.87 mg/dL 0.70-1.30 [facility] Work Phone: Comment on above: The validity of the calculated GFR & GFRAA in patients over 70 years has not been determined. Clinical correlation is essential. Serum or plasma urea nitroge n measurement (mass/volume)on 01-29-2022 Urea nitrogen [Mass/Vol] 18 mg/dL 7-18 [facility] Work Phone: Thin prep Papanicolaou smear with manual screeningon 01-29-2022 Thin prep Papanicolaou smear with manual screening 11 U/L 15-37 [facility] Work Phone: Thin prep Papanicolaou smear with manual screening 5 5-15 [facility] Work Phone: Whole blood hemoglobin A1c/t otal hemoglobin ratio (mass fraction)on 01-29-2022 HbA1c (Bld) [Mass fraction] 8.8 % 3.8-5.6 [facility] Work Phone: Comment on above: Normal < 5.7 % Predi abetic 5.7 - 6.4 % Diabetic >or= 6.5 % Please note range changes. Basophil percentageon 2021 Cholesterol [Mass/Vol] 169 mg/dL <200 [facility] Work Phone: Comment on above: <200 mg/dL Desirable 200-240 mg/dL Borderline >240 mg/dL High Risk Triglyceride [Mass/Vol] 177 mg/dL <199 [facility] Work Phone: Comment on above: The drugs N-Acetylcy steine and Metamizole may falsely depress this assay.Serum Triglycerides Reference Interval Normal <150 mg/dL Borderline high 150 - 199 mg/dL High 200 - 499 mg/dL Very High > or = 500 mg/dL Serum or plasma cholesterol in HDL measurement (mass/volume)on 01-19-2022 Cholesterol in HDL [Mass/Vol] 35 mg/dL >40 [facility] Work Phone: Comment on above: The drugs N-Acetylcy steine and Metamizole may falsely depress this assay. Reference Range HDL <40 mg/dL Low HDL Cholesterol HDL >or= 60 mg/dL High HDL Cholesterol Serum or plasma cholesterol in VLDL measurement (mass/volume)on 01-19-2022 Cholesterol in VLDL [Mass/Vol] 35 mg/dL 5-40 [facility] Work Phone: Serum or plasma low density lipoprotein (LDL) cholesterol measurement (mass/volume)on 01-19-2022 Cholesterol in LDL [Mass/Vol] 99 mg/dL 0-130 [facility] Work Phone: Basic Metabolic Panelon 12-09 Calcium [Mass/Vol] 9.4 mg/dL Normal 8.4-10.4 [facility] Comment on above: Performed By: #### B MP3, HGHCT #### [facility] [address] [place] [address] Glucose [Mass/Vol] 119 mg/dL High 70-100 [facility] Comment on above: Performed By: #### B MP3, HGHCT #### [facility] [address] [place] [address] Urea nitrogen [Mass/Vol] 19 mg/dL Normal 9-20 [facility] Comment on above: Performed By: #### B MP3, HGHCT #### [facility] [address] [place] [address] Anion gap [Moles/Vol] 8 mmol/L Normal 3-13 [facility] Comment on above: Performed By: #### B MP3, HGHCT #### [facility] [address] [place] [address] CO2 [Moles/Vol] 25 mmol/L Normal 22-30 [facility] Comment on above: Performed By: #### B MP3, HGHCT #### [facility] [address] [place] [address] Creatinine [Mass/Vol] 0.73 mg/dL Normal 0.52-1.25 [facility] Comment on above: Performed By: #### B MP3, HGHCT #### [facility] [address] [place] [address] eGFR OTHER > 90.0 Normal >60 [facility] Comment on above: Result Comment: KDIG O [...] Performed By: #### B MP3, HGHCT #### [facility] [address] [place] [address] GFR/1.73 sq M.predicted among blacks MDRD (S/P/Bld) [Vol rate/Area] mL/min/{1.73_m2} Normal >60 [facility] Comment on above: Performed By: #### B MP3, HGHCT #### [facility] [address] [place] [address] Potassium [Moles/Vol] 4.6 mmol/L Normal 3.5-5.1 [facility] Comment on above: Performed By: #### B MP3, HGHCT #### [facility] [address] [place] [address] Chloride [Moles/Vol] 105 mmol/L Normal 98-107 [facility] Comment on above: Performed By: #### B MP3, HGHCT #### [facility] [address] [place] [address] Sodium [Moles/Vol] 137 mmol/L Normal 135-145 [facility] Comment on above: Performed By: #### B MP3, HGHCT #### [facility] [address] [place] [address] Glucose,Bedsideon 12-23-2021 Glucose [Mass/Vol] 122 mg/dL High 70-100 [facility] Comment on above: Result Comment: Test performed by glucose meter. Results may be 10%-15% lower than serum/plasma values. (CLIA ID [id number]) Performed By: #### B GLU #### [facility] [address] [place] [address] Glucose [Mass/Vol] 107 mg/dL High 70-100 [facility] Comment on above: Result Comment: Test performed by glucose meter. Results may be 10%-15% lower than serum/plasma values. (CLIA ID [id number]) Performed By: #### B GLU #### [facility] [address] [place] [address] Hemoglobin AND Hematocriton 12-23-2021 Hematocrit (Bld) [Volume fraction] 35.7 % Normal 35.0-47.0 [facility] Comment on above: Performed By: #### B MP3, HGHCT #### [facility] [address] [place] [address] Hemoglobin (Bld) [Mass/Vol] 11.8 g/dL Normal 11.7-16.0 [facility] Comment on above: Performed By: #### B MP3, HGHCT #### [facility] [address] 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 Procedure terminated. [facility] Surgical Pathologyon 022 Surgical Pathology [id number] [facility] PATHOLOGY AND LABORATORY MEDICINE [address] [place] [phone] Fax - FINAL SURGICAL PATHOLOGY REPORT NAME: WILL JACINTO : 1965 56 Y F BILLING NO.: [id number] LOCATION: [place] [address] PROCEDURE 12/23/2021 DATE: SURGEON: MICHAEL CUNNINGHAM M.D. RECEIVED 12/23/2021 DATE: ATTENDING: MICHAEL CUNNINGHAM M.D. REPORT DATE: 12/24/2021 COPIES TO: DIAGNOSIS: ENDOMETRIUM, CURETTAGE - INACTIVE CYSTICALLY DILATED ENDOMETRIAL GLANDS AND POLYPOID PORTIONS OF ENDOMETRIUM WITH WEAK EXOGENOUS HORMONE EFFECT. -FOCAL FEATURES SUGGESTIVE OF BENIGN ENDOMETRIAL POLYP. -PORTIONS OF BENIGN MYOMETRIAL SMOOTH MUSCLE. -BENIGN ECTOCERVICAL SQUAMOUS EPITHELIUM. -NEGATIVE FOR HYPERPLASIA OR MALIGNANCY. OUSMANEK/HAILE Signature> Lester COLBERT, PhD CLINICAL INFORMATION: N85.02. [...] characteristics determined by the clinical laboratories of [facility]. They have not been cleared by [...] negativity on decalcified specimens. Case reviewed at [facility] [address] [place] [address]. DEPARTMENT OF PATHOLOGY AND LABORATORY MEDICINE [place], [place] [address] [email or web address] Normal [facility] Comprehensive Metabolic Pane gigi 12-08-2020 Albumin [Mass/Vol] 4.0 g/dL 3.5 - 5 g/dL [place] ALP [Catalytic activity/Vol] 121 U/L 38 - 126 U/L [place] ALT [Catalytic activity/Vol] 47 U/L High 0 - 34 U/L [place] Comment on above: The ALT test is perf ormed by an updated assay method. Please note that the reference intervals have been changed and are now sex specific. Anion gap [Moles/Vol] 6 mmol/L [place], [place] AST [Catalytic activity/Vol] 25 U/L 15 - 46 U/L [place] Bilirubin Ql (U) 0.6 mg/dL 0.2 - 1.3 mg/dL [place] Calcium [Mass/Vol] 9.7 mg/dL 8.4 - 10. 4 mg/dL [place] Chloride [Moles/Vol] 95 mmol/L Low 98 - 10 7 mmol/L [place] CO2 [Moles/Vol] 30 mmol/L 22 - 30 mmol/L [place] Creatinine [Mass/Vol] 0.64 mg/dL 0.52 - 1.25 mg/dL [place] EGFR IF NonAfrican Greenlandic >90.0 >60 mL/min [place] Comment on above: KDIGO guidelines pro [...] MDRD (S/P/Bld) [Vol rate/Area] mL/min/{1.73_m2} >60 mL/min [place] Glucose [Mass/Vol] 248 mg/dL High 70 - 100 mg/dL [place] Interpretation and review of laboratory results Abnormal [place] Potassium [Moles/Vol] 4.7 mmol/L 3.5 - 5.1 mmol/L [place] Protein [Mass/Vol] 6.8 g/dL 6.3 - 8.2 g/dL [place] Sodium [Moles/Vol] 132 mmol/L Low 135 - 145 mmol/L [place] Urea nitrogen [Mass/Vol] 12 mg/dL 7 - 20 mg/dL [place] Hemogram (CBC) w/Auto Diffon 12-08-2020 Absolute Baso # 0.1 10*3/uL 0 - 0.2 10*3/uL [place] Absolute Neut # 6.1 10*3/uL 1.8 - 7 10*3/uL [place] Basophils/100 WBC (Bld) 0.8 % 0 - 2 % [place] Eosinophils (Bld) [#/Vol] 0.1 10*3/uL 0 - 0.5 10*3/uL [place] Eosinophils/100 WBC (Bld) 1.0 % 1 - 6 % [place] Erythrocyte distribution width (RBC) [Ratio] 15.7 % High 11.5 - 14.5 % [place] Granulocytes/100 WBC (Bld) 73.2 % 40 - 80 % [place] Hematocrit (Bld) [Volume fraction] 37.0 % 35 - 47 % [place] Hemoglobin (Bld) [Mass/Vol] 12.3 g/dL 11.7 - 16 g/dL [place] Interpretation and review of laboratory results Abnormal [place] Lymphocytes (Bld) [#/Vol] 1.5 10*3/uL 1 - 4.3 10*3/uL [place] Lymphocytes/100 WBC (Bld) 18.0 % Low 20 - 40 % [place] MCH (RBC) [Entitic mass] 28.6 pg 26 - 34 pg [place] MCHC (RBC) [Mass/Vol] 33.3 % 32 - 36 % [place] MCV (RBC) [Entitic vol] 85.8 fL 79 - 98 fL [place] Monocytes (Bld) [#/Vol] 0.6 10*3/uL 0 - 0.8 10*3/uL [place] Monocytes/100 WBC (Bld) 7.0 % 2 - 10 % [place] Platelet mean volume (Bld) [Entitic vol] 7.9 fL 7.4 - 10.4 fL [place] Platelets (Bld) [#/Vol] 382 10*3/uL 140 - 440 10*3/uL [place] RBC (Bld) [#/Vol] 4.32 10*6/uL 3.8 - 5.2 10*6/uL [place] WBC (Bld) [#/Vol] 8.4 10*3/uL 3.6 - 10.7 10*3/uL [place] Test Performed by [facility], [address] Lipaseon 12-08-2020 Lipase [Catalytic activity/Vol] 45 U/L 23 - 300 U/L [place] Otheron 12-08-2020 Test Performed by [facility], [address] [place], [place] [id number] [place] [address] Troponinon 12-08-2020 Troponin I.cardiac [Mass/Vol] ng/mL 0 - 0.034 ng/mL [place] Comment on above: . Test Performed by [facility], [address] [place], [place] [id number] [place] [address] US ABDOMEN LIMITED Specify o rgan? GALLBLADDERon 12-08-2020 [facility] Incoming Radiology Results From [facility] - 12/08/2020 4:26 PM EST Patient Name: WILL JACINTO Ultrasound ACCESSION EXAM DATE/TIME PROCEDURE ORDERING PROVIDER [id number] 12/08/2020 16:22 EST US Abdomen Limited [id number] SHEIKH CPT code 19548 Reason For Exam (US Abdomen Limited) abd pain/vomiting Report Ultrasound right upper quadrant HISTORY: Abdominal pain Fatty infiltration of the liver. The gallbladder is normal. No gallstones. Common bile duct has a normal diameter 1.5 mm. Pancreas is normal. Right kidney measures 11.7 x 5.7 x 5.6 cm. The right kidney is normal. IMPRESSION: Fatty infiltration of the liver. Report Dictated on Workstation: [id number] --- Final --- Dictating Physician: MD BAUMANN MALAY Signed Date and Time: 12/08/2020 4:25 pm Signed by: MD BAUMANN MALAY Transcribed Date and Time: 12/08/2020 4:26 [place] Patient Name: WILL ALVARADO Ultrasound ACCESSION EXAM DATE/TIME PROCEDURE ORDERING PROVIDER [id number] 12/08/2020 16:22 EST US Abdomen Limited [id number] SHEIKH CPT code 48717 Reason For Exam (US Abdomen Limited) abd pain/vomiting Report Ultrasound right upper quadrant HISTORY: Abdominal pain Fatty infiltration of the liver. The gallbladder is normal. No gallstones. Common bile duct has a normal diameter 1.5 mm. Pancreas is normal. Right kidney measures 11.7 x 5.7 x 5.6 cm. The right kidney is normal. IMPRESSION: Fatty infiltration of the liver. Report Dictated on Workstation: [id number] --- Final --- Dictating Physician: MD BAUMANN MALAY Signed Date and Time: 12/08/2020 4:25 pm Signed by: MD BAUMANN MALAY Transcribed Date and Time: 12/08/2020 4:26 [place] Urinalysison 12-08-2020 Appearance (U) Turbid Abnormal Clear NA [place] Comment on above: . Bacteria, UA Moderate Abnormal Negative /[HPF] [place] Comment on above: . Bilirubin Urine Negative Negative mg/dL [place] Comment on above: . Color (U) Yellow Lt. Yellow NA [place] Comment on above: . Glucose, Ur 500 mg/dL Abnormal Normal (<70) [place] Comment on above: . Hyaline Casts, UA 3-5 Abnormal Negative /[LPF] [place] Comment on above: . Interpretation and review of laboratory results Abnormal [place] Ketones Ql (U) Negative Negative mg/dL [place] Comment on above: . LEUKOCYTES, UA 250 Abnormal Negative Kat/uL [place] Comment on above: . Mucous Threads Few Negative /[LPF] [place] Comment on above: . Nitrite, Urine Negative Negative NA [place] Comment on above: . Occult Blood,Urine 1.0 mg/dL Abnormal Negative [place] Comment on above: . pH (U) 7.0 [pH] [place] Comment on above: . Protein (U) [Mass/Vol] 50 mg/dL Abnormal Negative [place] Comment on above: . RBC (U) [#/Vol] /uL Abnormal 0 - 2 /[HPF] [place] Comment on above: . Specific Hester, Urine 1.022 [place] Comment on above: . Squam Epithel, UA 3-5 3 - 5 /[HPF] [place] Comment on above: . Urobilinogen, Urine 4 mg/dL Abnormal Normal (0-1) [place] Comment on above: . WBC, UA 51-100 Abnormal 0 - 5 /[HPF] [place] Comment on above: . Test Performed by [facility], [address] [place], [place], [place] [address] Urine microscopic confirmed via light microscopy. [place] XR CHEST PORTABLEon 12-08-19 Patient Name: WILL ALVARADO Diagnostic Radiology ACCESSION EXAM DATE/TIME PROCEDURE ORDERING PROVIDER [id number] 12/08/2020 16:00 EST CR Chest Portable [id number] -ART ZENG CPT code 86927 Reason For Exam (CR Chest Portable) chest [...] RACHEL Transcribed Date and Time: 12/08/2020 4:22 [facility] [place], [place] Nati Jones Incoming Radiology Results From [facility] - 12/08/2020 4:22 PM EST Patient Name: WILL JACINTO Diagnostic Radiology ACCESSION EXAM DATE/TIME PROCEDURE ORDERING PROVIDER [id number] 12/08/2020 16:00 EST CR Chest Portable [id number] -ART ZENG CPT code 25315 Reason For Exam (CR Chest Portable) chest [...] RACHEL Transcribed Date and Time: 12/08/2020 4:22 [facility] [place] [place] CR Abdomen APon 11-28-2020 CR Abdomen AP Patient Name: WILL ALVARADO Diagnostic Radiology ACCESSION EXAM DATE/TIME PROCEDURE ORDERING PROVIDER [id number] 11/28/2020 09:00 EST CR Abdomen AP MD MARTIN KHALED CPT code 55327 Reason For Exam (CR Abdomen AP) ileus [...] Transcribed Date and Time: 11/28/2020 9:25 Normal [facility] Comp Metabolic Panelon 11-28 ALT [Catalytic activity/Vol] 30 U/L Normal 0-34 [facility] Comment on above: Result Comment: The ALT test is performed by an updated assay method. Please note that the reference intervals have been changed and are now sex specific. Performed By: #### C MP3 #### [facility] [address] [place], [place] Calcium [Mass/Vol] 8.7 mg/dL Normal 8.4-10.4 [facility] Comment on above: Performed By: #### C MP3 #### [facility] [address] [place], [place] Glucose [Mass/Vol] 100 mg/dL Normal 70-100 [facility] Comment on above: Performed By: #### C MP3 #### [facility] [address], [place] ALP [Catalytic activity/Vol] 77 U/L Normal 38-126 [facility] Comment on above: Result Comment: Slig htly hemolysed, interpret with caution. Performed By: #### C MP3 #### [facility] [address], [place] Anion gap [Moles/Vol] 5 Normal [facility] Comment on above: Performed By: #### C MP3 #### [facility] [address], [place] AST [Catalytic activity/Vol] 26 U/L Normal 15-46 [facility] Comment on above: Result Comment: Slcarey htly hemolysed, interpret with caution. Performed By: #### C MP3 #### [facility] [address] [place] [address] Bilirubin [Mass/Vol] 0.6 mg/dL Normal 0.2-1.3 [facility] Comment on above: Performed By: #### C MP3 #### [facility] [address] [place] [address] CO2 [Moles/Vol] 25 mmol/L Normal 22-30 [facility] Comment on above: Performed By: #### C MP3 #### [facility] [address], [place] Creatinine [Mass/Vol] 0.66 mg/dL Normal 0.52-1.25 [facility] Comment on above: Performed By: #### C MP3 #### [facility] [address], [place] GFR/1.73 sq M predicted among blacks MDRD (S/P/Bld) [Vol rate/Area] mL/min/{1.73_m2} Normal >60 [facility] Comment on above: Performed By: #### C MP3 #### [facility] [facility] [address], [place] GFR/1.73 sq M predicted among non-blacks MDRD (S/P/Bld) [Vol rate/Area] mL/min/{1.73_m2} Normal >60 [facility] Comment on above: Result Comment: KDIG O [...] secretion. Performed By: #### C MP3 #### [facility] [address], [place] Protein [Mass/Vol] 6.0 g/dL Low 6.3-8.2 [facility] Comment on above: Performed By: #### C MP3 #### [facility] [address], [place] Urea nitrogen [Mass/Vol] 10 mg/dL Normal 7-20 [facility] Comment on above: Performed By: #### C MP3 #### [place] [address], [place] Potassium [Moles/Vol] 4.3 mmol/L Normal 3.5-5.1 [facility] Comment on above: Result Comment: Slig htly hemolysed, interpret with caution. Performed By: #### C MP3 #### [facility] [address], [place] Sodium [Moles/Vol] 134 mmol/L Low 135-145 [facility] Comment on above: Performed By: #### C MP3 #### [place] [address], [place] Albumin [Mass/Vol] 3.3 g/dL Low 3.5-5.0 [facility] Comment on above: Performed By: #### C MP3 #### [place] [address], [place] Chloride [Moles/Vol] 105 mmol/L Normal 98-107 [facility] Comment on above: Performed By: #### C MP3 #### [place] [address] [address], [place] Comprehensive Metabolic Pane gigi 11-28-2020 Albumin [Mass/Vol] 3.3 g/dL Low 3.5 - 5 g/dL [place], [place] ALP [Catalytic activity/Vol] 77 U/L 38 - 126 U/L [place] Comment on above: Slightly hemolysed, interpret with caution. ALT [Catalytic activity/Vol] 30 U/L 0 - 34 U/L [place] Comment on above: The ALT test is perf ormed by an updated assay method. Please note that the reference intervals have been changed and are now sex specific. Anion gap [Moles/Vol] 5 mmol/L [place], [place] AST [Catalytic activity/Vol] 26 U/L 15 - 46 U/L [place] Comment on above: Slightly hemolysed, interpret with caution. Bilirubin Ql (U) 0.6 mg/dL 0.2 - 1.3 mg/dL [place] Calcium [Mass/Vol] 8.7 mg/dL 8.4 - 10. 4 mg/dL [place] Chloride [Moles/Vol] 105 mmol/L 98 - 10 7 mmol/L [place] CO2 [Moles/Vol] 25 mmol/L 22 - 30 mmol/L [place] Creatinine [Mass/Vol] 0.66 mg/dL 0.52 - 1.25 mg/dL [place] EGFR IF NonAfrican Greenlandic >90.0 >60 mL/min [place] Comment on above: KDIGO guidelines pro [...] MDRD (S/P/Bld) [Vol rate/Area] mL/min/{1.73_m2} >60 mL/min [place] Glucose [Mass/Vol] 100 mg/dL 70 - 100 mg/dL [place] Interpretation and review of laboratory results Abnormal [place] Potassium [Moles/Vol] 4.3 mmol/L 3.5 - 5.1 mmol/L [place] Comment on above: Slightly hemolysed, interpret with caution. Protein [Mass/Vol] 6.0 g/dL Low 6.3 - 8.2 g/dL [place] Sodium [Moles/Vol] 134 mmol/L Low 135 - 145 mmol/L [place] Urea nitrogen [Mass/Vol] 10 mg/dL 7 - 20 mg/dL [place] Test Performed by [facility], [facility] [place], [place] [id number] [place] [address] Glucose,Bedsideon 11-28-2020 Glucose [Mass/Vol] 111 mg/dL High 70-100 [facility] Comment on above: Result Comment: Test performed by glucose meter. Results may be 10%-15% lower than serum/plasma values. (CLIA ID [id number]) Performed By: #### B GLU #### [address] [address] Glucose [Mass/Vol] 166 mg/dL High 70-100 [facility] Comment on above: Result Comment: Test performed by glucose meter. Results may be 10%-15% lower than serum/plasma values. (CLIA ID [id number]) Performed By: #### B GLU #### [place] [address] [place] [address] Glucose [Mass/Vol] 215 mg/dL High 70-100 [facility] Comment on above: Result Comment: Test performed by glucose meter. Results may be 10%-15% lower than serum/plasma values. (CLIA ID [id number]) Performed By: #### B GLU #### [address] [address] POCT Glucoseon 11-28-2020 Glucose [Mass/Vol] 111 mg/dL High 70 - 100 mg/dL [place] Comment on above: Test performed by gl ucose meter. Results may be 10%-15% lower than serum/plasma values. (CLIA ID [id number]) Interpretation and review of laboratory results Abnormal [place], [place] Test Performed by [facility], [address] [place] [address] [facility] [employer]- [place], [place] Glucose [Mass/Vol] 166 mg/dL High 70 - 100 mg/dL [facility] [employer] [place], [place] Comment on above: Test performed by gl ucose meter. Results may be 10%-15% lower than serum/plasma values. (CLIA ID [id number]) Interpretation and review of laboratory results Abnormal [place], [place] Test Performed by [facility], [address] [place] [address] [facility] [place] [place] Glucose [Mass/Vol] 215 mg/dL High 70 - 100 mg/dL [facility] [place], [place] Comment on above: Test performed by gl ucose meter. Results may be 10%-15% lower than serum/plasma values. (CLIA ID [id number]) Interpretation and review of laboratory results Abnormal [place], [place]ARYAM Test Performed by [facility], [address] [place] [address] [place], [place] Surgical Pathologyon 021 Sodium [Moles/Vol] SEE BELOW [facility] [place], [place] 1 AV11-921 [facility] PATHOLOGY AND LABORATORY MEDICINE [address] [place] [address] FINAL SURGICAL PATHOLOGY REPORT NAME: HORACIO JACINTOJASPREET Gilliam : 1965 55 Y F BILLING NO.: [id number] LOCATION: [address] [place] [address] PROCEDURE 11/26/2020 DATE: SURGEON: VIRGIL MARSHALL M.D. [...] residual atypical hyperplasia. Follow-up and rebiopsy recommended. CA/CA Signature> ALLEN JERRY M.D. CLINICAL INFORMATION: Not [...] characteristics determined by the clinical laboratories of [facility]. They have not been cleared by [...] negativity on decalcified specimens. Professional Performing Location: [place] [address]. DEPARTMENT OF PATHOLOGY AND LABORATORY MEDICINE [place], [place] [address] [place], [place] XR ABDOMEN (KUB) (SINGLE AP VIEW)on 11-28-2020 [facility] Incoming Radiology Results From [facility] - 11/28/2020 9:26 AM EST Patient Name: WILL JACINTO Diagnostic Radiology ACCESSION EXAM DATE/TIME PROCEDURE ORDERING PROVIDER [id number] 11/28/2020 09:00 EST CR Abdomen AP MD MARTIN KHALED CPT code 90965 Reason For Exam (CR Abdomen AP) ileus [...] RISA Transcribed Date and Time: 11/28/2020 9:25 [place], [place] Patient Name: WILL JACINTO Diagnostic Radiology ACCESSION EXAM DATE/TIME PROCEDURE ORDERING PROVIDER [id number] 11/28/2020 09:00 EST CR Abdomen AP MD MARTIN KHALED CPT code 27646 Reason For Exam (CR Abdomen AP) ileus [...] RISA Transcribed Date and Time: 11/28/2020 9:25 [facility] [place], [place] CR Abdomen APon 11-27-2020 CR Abdomen AP Patient Name: WILL ALVARADO Diagnostic Radiology ACCESSION EXAM DATE/TIME PROCEDURE ORDERING PROVIDER [id number] 11/27/2020 08:28 EST CR Abdomen AP MD JD, CHAU CPT code 49667 Reason For Exam (CR Abdomen AP) ileus [...] Transcribed Date and Time: 11/27/2020 8:38 Normal [facility] Comp Metabolic Panelon 11-27 ALP [Catalytic activity/Vol] 97 U/L Normal 38-126 [facility] Comment on above: Performed By: #### C MP3 #### [address] [address] ALT [Catalytic activity/Vol] 34 U/L Normal 0-34 [facility] Comment on above: Result Comment: The ALT test is performed by an updated assay method. Please note that the reference intervals have been changed and are now sex specific. Performed By: #### C MP3 #### [facility] [address] [facility], [place] Anion gap [Moles/Vol] 6 Normal [facility] Comment on above: Performed By: #### C MP3 #### [facility] [address] [facility], [place] AST [Catalytic activity/Vol] 26 U/L Normal 15-46 [facility] Comment on above: Performed By: #### C MP3 #### [facility] [address] [facility], [place] Bilirubin [Mass/Vol] 0.6 mg/dL Normal 0.2-1.3 [facility] Comment on above: Performed By: #### C MP3 #### [place] [address] [address] [facility], [place] Calcium [Mass/Vol] 8.2 mg/dL Low 8.4-10.4 [facility] Comment on above: Performed By: #### C MP3 #### [facility] [address] [facility], [place] CO2 [Moles/Vol] 21 mmol/L Low 22-30 [facility] Comment on above: Performed By: #### C MP3 #### [place] [address] [address] [facility], [place] Glucose [Mass/Vol] 225 mg/dL High 70-100 [facility] Comment on above: Performed By: #### C MP3 #### [facility] [address] [facility], [place] Protein [Mass/Vol] 6.1 g/dL Low 6.3-8.2 [facility] Comment on above: Performed By: #### C MP3 #### [facility] [address] [facility], [place] Urea nitrogen [Mass/Vol] 13 mg/dL Normal 7-20 [facility] Comment on above: Performed By: #### C MP3 #### [place] [address], [place] Creatinine [Mass/Vol] 0.57 mg/dL Normal 0.52-1.25 [facility] Comment on above: Performed By: #### C MP3 #### [facility] [address], [place] GFR/1.73 sq M predicted among blacks MDRD (S/P/Bld) [Vol rate/Area] mL/min/{1.73_m2} Normal >60 [facility] Comment on above: Performed By: #### C MP3 #### [facility] [address], [place] GFR/1.73 sq M predicted among non-blacks MDRD (S/P/Bld) [Vol rate/Area] mL/min/{1.73_m2} Normal >60 [facility] Comment on above: Result Comment: KDIG O [...] secretion. Performed By: #### C MP3 #### [facility] [address], [place] Albumin [Mass/Vol] 3.3 g/dL Low 3.5-5.0 [facility] Comment on above: Performed By: #### C MP3 #### [facility] [address], [place] Chloride [Moles/Vol] 104 mmol/L Normal 98-107 [facility] Comment on above: Performed By: #### C MP3 #### [facility] [address], [place] Potassium [Moles/Vol] 4.2 mmol/L Normal 3.5-5.1 [facility] Comment on above: Performed By: #### C MP3 #### [facility] [address], [place] Sodium [Moles/Vol] 132 mmol/L Low 135-145 [facility] Comment on above: Performed By: #### C MP3 #### [facility] [address], [place] Comprehensive Metabolic Pane gigi 11-27-2020 Albumin [Mass/Vol] 3.3 g/dL Low 3.5 - 5 g/dL [place] ALP [Catalytic activity/Vol] 97 U/L 38 - 126 U/L [place] ALT [Catalytic activity/Vol] 34 U/L 0 - 34 U/L [place] Comment on above: The ALT test is perf ormed by an updated assay method. Please note that the reference intervals have been changed and are now sex specific. Anion gap [Moles/Vol] 6 mmol/L [place], [place] AST [Catalytic activity/Vol] 26 U/L 15 - 46 U/L [place] Bilirubin Ql (U) 0.6 mg/dL 0.2 - 1.3 mg/dL [place] Calcium [Mass/Vol] 8.2 mg/dL Low 8.4 - 10. 4 mg/dL [place] Chloride [Moles/Vol] 104 mmol/L 98 - 10 7 mmol/L [place] CO2 [Moles/Vol] 21 mmol/L Low 22 - 30 mmol/L [place] Creatinine [Mass/Vol] 0.57 mg/dL 0.52 - 1.25 mg/dL [place] EGFR IF NonAfrican [place]ic >90.0 >60 mL/min [place] Comment on above: KDIGO guidelines pro [...] MDRD (S/P/Bld) [Vol rate/Area] mL/min/{1.73_m2} >60 mL/min [place] Glucose [Mass/Vol] 225 mg/dL High 70 - 100 mg/dL [place] Interpretation and review of laboratory results Abnormal [place] Potassium [Moles/Vol] 4.2 mmol/L 3.5 - 5.1 mmol/L [facility] [place] [place] Protein [Mass/Vol] 6.1 g/dL Low 6.3 - 8.2 g/dL [place] Sodium [Moles/Vol] 132 mmol/L Low 135 - 145 mmol/L [place] Urea nitrogen [Mass/Vol] 13 mg/dL 7 - 20 mg/dL [place] Test Performed by [facility], [address] [place] [address] [place], [place] EKG 12 Leadon 11-27-2020 [facility] Incoming Cardiology Results From [employer] - 11/27/2020 10:03 AM EST [facility] Test Date: 2020-11-26 Pat Name: Will Jacinto Department: 1A7E Room: 1714 Gender: F 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: SARAN : 1965 Requested By: GABO ESTRADA Order Number: [id number] Reading MD: Jelena Davidson Measurements Intervals Curlew Rate: 85 P: 38 CA: 159 QRS: -39 QRSD: 105 T: 29 QT: 382 QTc: 455 Interpretive Statements Sinus rhythm Left ventricular hypertrophy Anterior Q waves, possibly due to LVH Electronically Signed On 11-27-2020 10:02:38 EST by Jelena Gavinelissa [employer] MARYAM [facility] [facility] Test Date: 2020-11-26 Pat Name: Will Jacinto Department: 1A7E Room: [facility] Gender: F 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: SARAN : 1965 Requested By: GABO ESTRADA Order Number: [id number] Reading MD: Jelena Davidson Measurements Intervals Curlew Rate: 85 P: 38 CA: 159 QRS: -39 QRSD: 105 T: 29 QT: 382 QTc: 455 Interpretive Statements Sinus rhythm Left ventricular hypertrophy Anterior Q waves, possibly due to LVH Electronically Signed On 11-27-2020 10:02:38 EST by Jelena Davidson [employer] [facility] ERMARYAM Glucose, Bedsideon 1 Confirmation see below Normal [facility] Comment on above: Result Comment: No c onfirmation received. Performed By: #### B GLU #### [facility] [address] [place] [address] Glucose [Mass/Vol] mg/dL High 70-100 [facility] Comment on above: Result Comment: Test performed by glucose meter. Results may be 10%-15% lower than serum/plasma values. (CLIA ID [id number]) Performed By: #### B GLU #### [facility] [address] [place] [address] Glucose,Bedsideon 11-27-2020 Glucose [Mass/Vol] 91 mg/dL Normal 70-100 [facility] Comment on above: Result Comment: Test performed by glucose meter. Results may be 10%-15% lower than serum/plasma values. (CLIA ID [id number]) Performed By: #### B GLU #### [facility] [address] [place] [address] Glucose [Mass/Vol] 134 mg/dL High 70-100 [facility] Comment on above: Result Comment: Test performed by glucose meter. Results may be 10%-15% lower than serum/plasma values. (CLIA ID [id number]) Performed By: #### B GLU #### [facility] [address] [place] [address] Glucose [Mass/Vol] 205 mg/dL High 70-100 [facility] Comment on above: Result Comment: Test performed by glucose meter. Results may be 10%-15% lower than serum/plasma values. (CLIA ID [id number]) Performed By: #### B GLU #### [facility] [address] [place] [address] Glucose [Mass/Vol] 223 mg/dL High 70-100 [facility] Comment on above: Result Comment: Test performed by glucose meter. Results may be 10%-15% lower than serum/plasma values. (CLIA ID [id number]) Performed By: #### B GLU #### [facility] [address] [place] [address] POC Glucose, Whole Bloodon 0 11-27-2020 Glucose [Mass/Vol] mg/dL High 70 - 100 mg/dL [place] Comment on above: Test performed by gl ucose meter. Results may be 10%-15% lower than serum/plasma values. (CLIA ID [id number]) Interpretation and review of laboratory results Abnormal [place] Sodium [Moles/Vol] see below [place] Comment on above: No confirmation rece ived. Test Performed by [facility], [facility] [place] [address] [place], [place] POCT Glucoseon 11-27-2020 Glucose [Mass/Vol] 91 mg/dL 70 - 100 mg/dL [place] Comment on above: Test performed by gl ucose meter. Results may be 10%-15% lower than serum/plasma values. (CLIA ID [id number]) Test Performed by [facility], [facility] [place] [address] [place] Glucose [Mass/Vol] 134 mg/dL High 70 - 100 mg/dL [place] Comment on above: Test performed by gl ucose meter. Results may be 10%-15% lower than serum/plasma values. (CLIA ID [id number]) Interpretation and review of laboratory results Abnormal [facility] [place], [place] Test Performed by [facility], [address] [facility] [address] [place], [place] Glucose [Mass/Vol] 205 mg/dL High 70 - 100 mg/dL [facility] [place], [place] Comment on above: Test performed by gl ucose meter. Results may be 10%-15% lower than serum/plasma values. (CLIA ID [id number]) Interpretation and review of laboratory results Abnormal [facility] [place] Test Performed by [facility], [address] [place] [address] [facility] [place], [place] Glucose [Mass/Vol] 223 mg/dL High 70 - 100 mg/dL [facility] [place] Comment on above: Test performed by gl ucose meter. Results may be 10%-15% lower than serum/plasma values. (CLIA ID [id number]) Interpretation and review of laboratory results Abnormal [employer] [facility] [place], [place] Test Performed by [facility], [facility] [place] [address] [facility] [place] XR ABDOMEN (KUB) (SINGLE AP VIEW)on 11-27-2020 Patient Name: WILL ALVARADO Diagnostic Radiology ACCESSION EXAM DATE/TIME PROCEDURE ORDERING PROVIDER [id number] 11/27/2020 08:28 EST CR Abdomen AP MD MARTIN KHALED CPT code 44552 Reason For Exam (CR Abdomen AP) ileus [...] JASON Transcribed Date and Time: 11/27/2020 8:38 [place], [place] Nati Jones Incoming Radiology Results From [facility] - 11/27/2020 8:41 AM EST Patient Name: WILL JACINTO Diagnostic Radiology ACCESSION EXAM DATE/TIME PROCEDURE ORDERING PROVIDER [id number] 11/27/2020 08:28 EST CR Abdomen AP MD JD, CHAU CPT code 50253 Reason For Exam (CR Abdomen AP) ileus [...] JASON Transcribed Date and Time: 11/27/2020 8:38 [facility] [place], [place]ARYAM Comp Metabolic Panelon 11-26 ALP [Catalytic activity/Vol] 88 U/L Normal 38-126 [facility] Comment on above: Performed By: #### B GLU #### [facility] [address] [place] [address] ALT [Catalytic activity/Vol] 33 U/L Normal 0-34 [facility] Comment on above: Result Comment: The ALT test is performed by an updated assay method. Please note that the reference intervals have been changed and are now sex specific. Performed By: #### B GLU #### [facility] [address] [place] [address] Calcium [Mass/Vol] 8.9 mg/dL Normal 8.4-10.4 [facility] Comment on above: Performed By: #### B GLU #### [facility] [address], [place] Glucose [Mass/Vol] 188 mg/dL High 70-100 [facility] Comment on above: Performed By: #### B GLU #### [facility] [address], [place] Urea nitrogen [Mass/Vol] 10 mg/dL Normal 7-20 [facility] Comment on above: Performed By: #### B GLU #### [facility] [address], [place] Anion gap [Moles/Vol] 7 Normal [facility] Comment on above: Performed By: #### B GLU #### [facility] [address], [place] AST [Catalytic activity/Vol] 29 U/L Normal 15-46 [facility] Comment on above: Performed By: #### B GLU #### [place] [address] [address], [place] Bilirubin [Mass/Vol] 0.5 mg/dL Normal 0.2-1.3 [facility] Comment on above: Performed By: #### B GLU #### [place] [address] [address] [place], [place] CO2 [Moles/Vol] 25 mmol/L Normal 22-30 [facility] Comment on above: Performed By: #### B GLU #### [place] [address] [place] Creatinine [Mass/Vol] 0.63 mg/dL Normal 0.52-1.25 [facility] Comment on above: Performed By: #### B GLU #### [facility] [address], [place] GFR/1.73 sq M predicted among blacks MDRD (S/P/Bld) [Vol rate/Area] mL/min/{1.73_m2} Normal >60 [facility] Comment on above: Performed By: #### B GLU #### [place] [address] [place], [place] GFR/1.73 sq M predicted among non-blacks MDRD (S/P/Bld) [Vol rate/Area] mL/min/{1.73_m2} Normal >60 [facility] Comment on above: Result Comment: KDIG O [...] secretion. Performed By: #### B GLU #### [place] [address] [place] Protein [Mass/Vol] 6.2 g/dL Low 6.3-8.2 [facility] Comment on above: Performed By: #### B GLU #### [place] [address] [place] Albumin [Mass/Vol] 3.4 g/dL Low 3.5-5.0 [facility] Comment on above: Performed By: #### B GLU #### [place] [address] [place] [address] Chloride [Moles/Vol] 98 mmol/L Normal 98-107 [facility] Comment on above: Performed By: #### B GLU #### [address] Potassium [Moles/Vol] 3.9 mmol/L Normal 3.5-5.1 [facility] Comment on above: Performed By: #### B GLU #### [place] [address] [address] [place] Sodium [Moles/Vol] 130 mmol/L Low 135-145 [facility] Comment on above: Performed By: #### B GLU #### [facility] [address] [place] [address] Comprehensive Metabolic Pane gigi 11-26-2020 Albumin [Mass/Vol] 3.4 g/dL Low 3.5 - 5 g/dL [place] ALP [Catalytic activity/Vol] 88 U/L 38 - 126 U/L [place] ALT [Catalytic activity/Vol] 33 U/L 0 - 34 U/L [place] Comment on above: The ALT test is perf ormed by an updated assay method. Please note that the reference intervals have been changed and are now sex specific. Anion gap [Moles/Vol] 7 mmol/L [place], [place] AST [Catalytic activity/Vol] 29 U/L 15 - 46 U/L [place] Bilirubin Ql (U) 0.5 mg/dL 0.2 - 1.3 mg/dL [place] Calcium [Mass/Vol] 8.9 mg/dL 8.4 - 10. 4 mg/dL [place] Chloride [Moles/Vol] 98 mmol/L 98 - 10 7 mmol/L [place] CO2 [Moles/Vol] 25 mmol/L 22 - 30 mmol/L [place] Creatinine [Mass/Vol] 0.63 mg/dL 0.52 - 1.25 mg/dL [place] EGFR IF NonAfrican [place]ic >90.0 >60 mL/min [place] Comment on above: KDIGO guidelines pro [...] MDRD (S/P/Bld) [Vol rate/Area] mL/min/{1.73_m2} >60 mL/min [place] Glucose [Mass/Vol] 188 mg/dL High 70 - 100 mg/dL [place] Interpretation and review of laboratory results Abnormal [place] Potassium [Moles/Vol] 3.9 mmol/L 3.5 - 5.1 mmol/L [place] Protein [Mass/Vol] 6.2 g/dL Low 6.3 - 8.2 g/dL [place] Sodium [Moles/Vol] 130 mmol/L Low 135 - 145 mmol/L [place] Urea nitrogen [Mass/Vol] 10 mg/dL 7 - 20 mg/dL [place] Test Performed by [id number] [place] [address] Glucose,Bedsideon 11-26-2020 Glucose [Mass/Vol] 254 mg/dL High 70-100 [facility] Comment on above: Result Comment: Test performed by glucose meter. Results may be 10%-15% lower than serum/plasma values. (CLIA ID [id number]) Performed By: #### B GLU #### [address] [address] Glucose [Mass/Vol] 383 mg/dL High 70-100 [facility] Comment on above: Result Comment: Test performed by glucose meter. Results may be 10%-15% lower than serum/plasma values. (CLIA ID [id number]) Performed By: #### B GLU #### [address] [address] Glucose [Mass/Vol] 206 mg/dL High 70-100 [facility] Comment on above: Result Comment: Test performed by glucose meter. Results may be 10%-15% lower than serum/plasma values. (CLIA ID [id number]) Performed By: #### B GLU #### [facility] [address] [place] [address] Glucose [Mass/Vol] 169 mg/dL High 70-100 [facility] Comment on above: Result Comment: Test performed by glucose meter. Results may be 10%-15% lower than serum/plasma values. (CLIA ID [id number]) Performed By: #### B GLU #### [facility] [address] [place] [address] Glucose [Mass/Vol] 168 mg/dL High 70-100 [facility] Comment on above: Result Comment: Test performed by glucose meter. Results may be 10%-15% lower than serum/plasma values. (CLIA ID [id number]) Performed By: #### B GLU #### [facility] [address] 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 Two [id number]-qn-[id number] stitches were used to obtain hemostasis with [...] devices during the surgery. Diskriter Job ID: [id number] Virgil Marshall MD DOD:11/26/2020 10:39 A RLK/aaron DOT:11/26/2020 11: (more content not included)... Normal [facility] Otheron 11-26-2020 Test Performed by [facility], [address] [place] [address] [place], [place] POCT Glucoseon 11-26-2020 Glucose [Mass/Vol] 254 mg/dL High 70 - 100 mg/dL [place] Comment on above: Test performed by gl ucose meter. Results may be 10%-15% lower than serum/plasma values. (CLIA ID [id number]) Interpretation and review of laboratory results Abnormal [place] Glucose [Mass/Vol] 383 mg/dL High 70 - 100 mg/dL [place] Comment on above: Test performed by gl ucose meter. Results may be 10%-15% lower than serum/plasma values. (CLIA ID [id number]) Interpretation and review of laboratory results Abnormal [place] Test Performed by [facility], [facility] [place] [address] [place] Glucose [Mass/Vol] 206 mg/dL High 70 - 100 mg/dL [place] Comment on above: Test performed by gl ucose meter. Results may be 10%-15% lower than serum/plasma values. (CLIA ID [id number]) Interpretation and review of laboratory results Abnormal [facility] [place], [place] Test Performed by [facility], [address] [place] [address] [place] Glucose [Mass/Vol] 169 mg/dL High 70 - 100 mg/dL [facility] [place] [place] Comment on above: Test performed by gl ucose meter. Results may be 10%-15% lower than serum/plasma values. (CLIA ID [id number]) Interpretation and review of laboratory results Abnormal [facility], [place] Test Performed by [facility], [address] [place] [address] [place] Surgical Pathologyon [address] [facility] PATHOLOGY AND LABORATORY MEDICINE [address] [place] [address] FINAL SURGICAL PATHOLOGY REPORT NAME: HORACIO JACINTOJASPREET Gilliam : 1965 55 [facility] [id number] LOCATION: [address] [place] [address] 11/26/2020 DATE: SURGEON: VIRGIL MARSHALL M.D. RECEIVED [...] residual atypical hyperplasia. Follow-up and rebiopsy recommended. CA/CA Signature> ALLEN JERRY M.D. CLINICAL INFORMATION: Not [...] characteristics determined by the clinical laboratories of [facility]. They have not been cleared by [...] negativity on decalcified specimens. Professional Performing Location: [place] [address] [place] [address]. DEPARTMENT OF PATHOLOGY AND LABORATORY MEDICINE [place], [place] [address] Normal [facility] TSH without Reflexon 021 TSH Qn 2.356 u[IU]/mL 0.465 - 4.68 u[IU]/mL [place] Test Performed by [facility], [address] [place] [address] [place] Thyroid Stim. Hormoneon 11-08 Thyroid Stim. Hormone 2.356 u[IU]/mL Normal 0.465-4.68 0 [facility] Comment on above: Performed By: #### B GLU #### [facility] [address] [place], [place] Troponin Ion 11-26-2020 Troponin I.cardiac [Mass/Vol] ng/mL Normal 0.000-0.034 [place] Comment on above: . Result Comment: . Performed By: #### T ROPN #### [facility] [address] [place], [place] CBC Auto Differentialon 11-08 Absolute Baso # 0.1 10*3/uL 0 - 0.2 10*3/uL [place] Absolute Neut # 4.9 10*3/uL 1.8 - 7 10*3/uL [place] Basophils/100 WBC (Bld) 0.9 % 0 - 2 % [place] Eosinophils (Bld) [#/Vol] 0.1 10*3/uL 0 - 0.5 10*3/uL [place] Eosinophils/100 WBC (Bld) 1.8 % 1 - 6 % [place] Erythrocyte distribution width (RBC) [Ratio] 16.1 % High 11.5 - 14.5 % [place] Granulocytes/100 WBC (Bld) 64.4 % 40 - 80 % [place] Hematocrit (Bld) [Volume fraction] 29.4 % Low 35 - 47 % [place] Hemoglobin (Bld) [Mass/Vol] 10.0 g/dL Low 11.7 - 16 g/dL [place] Interpretation and review of laboratory results Abnormal [place] Lymphocytes (Bld) [#/Vol] 2.0 10*3/uL 1 - 4.3 10*3/uL [place] Lymphocytes/100 WBC (Bld) 25.7 % 20 - 40 % [place] MCH (RBC) [Entitic mass] 29.8 pg 26 - 34 pg [place] MCHC (RBC) [Mass/Vol] 33.9 % 32 - 36 % [place] MCV (RBC) [Entitic vol] 87.7 fL 79 - 98 fL [place], [place] Monocytes (Bld) [#/Vol] 0.5 10*3/uL 0 - 0.8 10*3/uL [place] Monocytes/100 WBC (Bld) 7.2 % 2 - 10 % [place] Platelet mean volume (Bld) [Entitic vol] 7.6 fL 7.4 - 10.4 fL [place] Platelets (Bld) [#/Vol] 352 10*3/uL 140 - 440 10*3/uL [place] RBC (Bld) [#/Vol] 3.35 10*6/uL Low 3.8 - 5.2 10*6/uL [place] WBC (Bld) [#/Vol] 7.6 10*3/uL 3.6 - 10.7 10*3/uL [place] Test Performed by [facility], [address] [place], [place] [address] [place] Comprehensive Metabolic Pane gigi 11-25-2020 Albumin [Mass/Vol] 3.1 g/dL Low 3.5 - 5 g/dL [place] ALP [Catalytic activity/Vol] 83 U/L 38 - 126 U/L [place] ALT [Catalytic activity/Vol] 31 U/L 0 - 34 U/L [place] Comment on above: The ALT test is perf ormed by an updated assay method. Please note that the reference intervals have been changed and are now sex specific. Anion gap [Moles/Vol] 5 mmol/L [place] AST [Catalytic activity/Vol] 26 U/L 15 - 46 U/L [place] Bilirubin Ql (U) 0.4 mg/dL 0.2 - 1.3 mg/dL [place] Calcium [Mass/Vol] 8.4 mg/dL 8.4 - 10. 4 mg/dL [place] Chloride [Moles/Vol] 103 mmol/L 98 - 10 7 mmol/L [place] CO2 [Moles/Vol] 28 mmol/L 22 - 30 mmol/L [place] Creatinine [Mass/Vol] 0.76 mg/dL 0.52 - 1.25 mg/dL [place] EGFR IF NonAfrican [place]ic 88.9 mL/min >60 [place] Comment on above: KDIGO guidelines pro [...] MDRD (S/P/Bld) [Vol rate/Area] mL/min/{1.73_m2} >60 mL/min [place] Glucose [Mass/Vol] 107 mg/dL High 70 - 100 mg/dL [place] Interpretation and review of laboratory results Abnormal [place] Potassium [Moles/Vol] 3.8 mmol/L 3.5 - 5.1 mmol/L [place] Protein [Mass/Vol] 5.8 g/dL Low 6.3 - 8.2 g/dL [place] Sodium [Moles/Vol] 136 mmol/L 135 - 145 mmol/L [place] Urea nitrogen [Mass/Vol] 11 mg/dL 7 - 20 mg/dL [place] Test Performed by [facility], [address], [place], [place] [address] [place] EKG 12 Leadon 11-25-2020 [facility] Incoming Cardiology [facility] 11/25/2020 8:18 AM EST [facility] Test Date: 2020-11-24 Pat Name: Will Jacinto Department: 2A Room: 158 Gender: F 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: : 1965 Requested By: KYLAH DAVID Order Number: [id number] [place] MD: Justin Ramirez Measurements Intervals Curlew Rate: 75 P: 45 CA: 160 QRS: -36 QRSD: 108 T: 18 QT: 392 QTc: 438 Interpretive Statements SINUS RHYTHM LATE PRECORDIAL R/S TRANSITION LEFT VENTRICULAR HYPERTROPHY LEFT ANTERIOR FASCICULAR BLOCK Compared to ECG 11/22/2020 18:01:34 Sinus tachycardia no longer present Electronically Signed On 11-25-2020 8:16:57 EST by Justin Ramirez [facility] Test Date: 2020-11-24 Pat Name: Will Jacinto Department: 2A Room: 158 Gender: F 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: : 1965 Requested By: KYLAH DAVID Order Number: [id number] [place] MD: Justin Ramirez Measurements Intervals Curlew Rate: 75 P: 45 CA: 160 QRS: -36 QRSD: 108 T: 18 QT: 392 QTc: 438 Interpretive Statements SINUS RHYTHM LATE PRECORDIAL R/S TRANSITION LEFT VENTRICULAR HYPERTROPHY LEFT ANTERIOR FASCICULAR BLOCK Compared to ECG 11/22/2020 18:01:34 Sinus tachycardia no longer present Electronically Signed On 11-25-2020 8:16:57 EST by Justin Ramirez [facility] [place] [place] P[place] Glucose, Whole Bloodon 0 11-25-2020 Glucose [Mass/Vol] mg/dL High 70 - 100 mg/dL [place] Comment on above: Test performed by gl ucose meter. Results may be 10%-15% lower than serum/plasma values. (CLIA ID [id number]) Interpretation and review of laboratory results Abnormal [facility] Sodium [Moles/Vol] see below [facility] Comment on above: No confirmation rece ived. Test Performed by [facility], [address] [place], [place] [address] [facility] [place] POCT Glucoseon 11-25-2020 Glucose [Mass/Vol] 168 mg/dL High 70 - 100 mg/dL [facility] [place] Comment on above: Test performed by gl ucose meter. Results may be 10%-15% lower than serum/plasma values. (CLIA ID [id number]) Interpretation and review of laboratory results Abnormal [facility] Test Performed by [employer] [facility], [address] [place] [address] [facility] [place] Glucose [Mass/Vol] 248 mg/dL High 70 - 100 mg/dL [facility] Comment on above: Test performed by gl ucose meter. Results may be 10%-15% lower than serum/plasma values. (CLIA ID [id number]) Interpretation and review of laboratory results Abnormal [facility] Test Performed by [employer] [facility], [address] [place], [place] [address] [facility] [place] Glucose [Mass/Vol] 202 mg/dL High 70 - 100 mg/dL [facility] Comment on above: Test performed by gl ucose meter. Results may be 10%-15% lower than serum/plasma values. (CLIA ID [id number]) Interpretation and review of laboratory results Abnormal [facility] Test Performed by [facility], [address] [place], [place] [address] [facility] [place] Glucose [Mass/Vol] 121 mg/dL High 70 - 100 mg/dL [facility] Comment on above: Test performed by gl ucose meter. Results may be 10%-15% lower than serum/plasma values. (CLIA ID [id number]) Interpretation and review of laboratory results Abnormal [facility] Test Performed by [employer] [facility], [address] [place], [place] [address] [facility] [place] Troponinon 11-25-2020 Troponin I.cardiac [Mass/Vol] ng/mL 0 - 0.034 ng/mL [place] Comment on above: . Test Performed by [facility], [address], [place], [place] [address] [place] US NON OB TRANSVAGINALon [facility] Incoming Radiology Results From [facility] - 11/25/2020 10:46 AM EST Patient Name: WILL JACINTO Ultrasound ACCESSION EXAM DATE/TIME PROCEDURE ORDERING PROVIDER [id number] 11/25/2020 10:38 EST US Transvaginal MD CRAMER DIANA CHRISTINE CPT code 16411 Reason For Exam (US Transvaginal) AUB Report [...] NICHOLAS Transcribed Date and Time: 11/25/2020 10:46 [place] Patient Name: WILL JACINTO Ultrasound ACCESSION EXAM DATE/TIME PROCEDURE ORDERING PROVIDER [id number] 11/25/2020 10:38 EST US Transvaginal MD CRAMER DIANA CHRISTINE CPT code 11280 Reason For Exam (US Transvaginal) AUB Report [...] NICHOLAS Transcribed Date and Time: 11/25/2020 10:46 [place] XR ABDOMEN (KUB) (SINGLE AP VIEW)on 11-25-2020 [facility] Incoming Radiology Results From [facility] - 11/25/2020 3:31 PM EST Patient Name: WILL JACINTO Diagnostic Radiology ACCESSION EXAM DATE/TIME PROCEDURE ORDERING PROVIDER [id number] 11/25/2020 15:08 EST CR Abdomen AP Lorenzo STAPLETON MICHAEL CPT code 94082 Reason For Exam (CR Abdomen AP) abd [...] NICHOLAS Transcribed Date and Time: 11/25/2020 3:31 [place] Patient [facility]: [id number] Diagnostic Radiology ACCESSION EXAM DATE/TIME PROCEDURE ORDERING PROVIDER [id number] 11/25/2020 15:08 EST CR Abdomen AP Lorenzo STAPLETON MICHAEL CPT code 59518 Reason For Exam (CR Abdomen AP) abd [...] NICHOLAS Transcribed Date and Time: 11/25/2020 3:31 [place] CBC Auto Differentialon 11-08 Absolute Baso # 0.0 10*3/uL 0 - 0.2 10*3/uL [place] Absolute Neut # 5.4 10*3/uL 1.8 - 7 10*3/uL [place] Basophils/100 WBC (Bld) 0.7 % 0 - 2 % [place] Eosinophils (Bld) [#/Vol] 0.1 10*3/uL 0 - 0.5 10*3/uL [place] Eosinophils/100 WBC (Bld) 0.9 % Low 1 - 6 % [place] Erythrocyte distribution width (RBC) [Ratio] 16.3 % High 11.5 - 14.5 % [place] Granulocytes/100 WBC (Bld) 77.5 % 40 - 80 % [place] Hematocrit (Bld) [Volume fraction] 32.6 % Low 35 - 47 % [place] Hemoglobin (Bld) [Mass/Vol] 11.0 g/dL Low 11.7 - 16 g/dL [place] Interpretation and review of laboratory results Abnormal [place] Lymphocytes (Bld) [#/Vol] 1.1 10*3/uL 1 - 4.3 10*3/uL [place] Lymphocytes/100 WBC (Bld) 15.8 % Low 20 - 40 % [place] MCH (RBC) [Entitic mass] 29.4 pg 26 - 34 pg [place] MCHC (RBC) [Mass/Vol] 33.7 % 32 - 36 % [place] MCV (RBC) [Entitic vol] 87.4 fL 79 - 98 fL [place], [place] Monocytes (Bld) [#/Vol] 0.4 10*3/uL 0 - 0.8 10*3/uL [place] Monocytes/100 WBC (Bld) 5.1 % 2 - 10 % [place] Platelet mean volume (Bld) [Entitic vol] 7.9 fL 7.4 - 10.4 fL [place] Platelets (Bld) [#/Vol] 332 10*3/uL 140 - 440 10*3/uL [place] RBC (Bld) [#/Vol] 3.73 10*6/uL Low 3.8 - 5.2 10*6/uL [place] WBC (Bld) [#/Vol] 6.9 10*3/uL 3.6 - 10.7 10*3/uL [place] Test Performed by [facility], [address], [place], [place] [address] [place] Comprehensive Metabolic Pane gigi 11-24-2020 Albumin [Mass/Vol] 3.6 g/dL 3.5 - 5 g/dL [place] ALP [Catalytic activity/Vol] 110 U/L 38 - 126 U/L [place] ALT [Catalytic activity/Vol] 36 U/L High 0 - 34 U/L [place] Comment on above: The ALT test is perf ormed by an updated assay method. Please note that the reference intervals have been changed and are now sex specific. Anion gap [Moles/Vol] 7 mmol/L [place] AST [Catalytic activity/Vol] 31 U/L 15 - 46 U/L [place] Bilirubin Ql (U) 0.6 mg/dL 0.2 - 1.3 mg/dL [place] Calcium [Mass/Vol] 9.1 mg/dL 8.4 - 10. 4 mg/dL [place] Chloride [Moles/Vol] 97 mmol/L Low 98 - 10 7 mmol/L [place] CO2 [Moles/Vol] 29 mmol/L 22 - 30 mmol/L [place] Creatinine [Mass/Vol] 0.74 mg/dL 0.52 - 1.25 mg/dL [place] EGFR IF NonAfrican [place]ic >90.0 >60 mL/min [place] Comment on above: KDIGO guidelines pro [...] MDRD (S/P/Bld) [Vol rate/Area] mL/min/{1.73_m2} >60 mL/min [place] Glucose [Mass/Vol] 304 mg/dL High 70 - 100 mg/dL [place] Interpretation and review of laboratory results Abnormal [place] Potassium [Moles/Vol] 4.3 mmol/L 3.5 - 5.1 mmol/L [place] Protein [Mass/Vol] 6.5 g/dL 6.3 - 8.2 g/dL [place] Sodium [Moles/Vol] 133 mmol/L Low 135 - 145 mmol/L [place] Urea nitrogen [Mass/Vol] 16 mg/dL 7 - 20 mg/dL [place] Test Performed by [facility], [address] [place], [place] [address] [place] Albumin [Mass/Vol] 3.6 g/dL 3.5 - 5 g/dL [place] ALP [Catalytic activity/Vol] 115 U/L 38 - 126 U/L [place] ALT [Catalytic activity/Vol] 35 U/L High 0 - 34 U/L [place] Comment on above: The ALT test is perf ormed by an updated assay method. Please note that the reference intervals have been changed and are now sex specific. Anion gap [Moles/Vol] 6 mmol/L [place], [place] AST [Catalytic activity/Vol] 25 U/L 15 - 46 U/L [place] Bilirubin Ql (U) 0.6 mg/dL 0.2 - 1.3 mg/dL [place] Calcium [Mass/Vol] 9.0 mg/dL 8.4 - 10. 4 mg/dL [place] Chloride [Moles/Vol] 97 mmol/L Low 98 - 10 7 mmol/L [place] CO2 [Moles/Vol] 29 mmol/L 22 - 30 mmol/L [place] Creatinine [Mass/Vol] 0.78 mg/dL 0.52 - 1.25 mg/dL [place] EGFR IF NonAfrican [place]ic 86.1 mL/min >60 [place] Comment on above: KDIGO guidelines pro [...] MDRD (S/P/Bld) [Vol rate/Area] mL/min/{1.73_m2} >60 mL/min [place] Glucose [Mass/Vol] 308 mg/dL High 70 - 100 mg/dL [place] Interpretation and review of laboratory results Abnormal [place] Potassium [Moles/Vol] 4.8 mmol/L 3.5 - 5.1 mmol/L [place] Protein [Mass/Vol] 6.6 g/dL 6.3 - 8.2 g/dL [place] Sodium [Moles/Vol] 132 mmol/L Low 135 - 145 mmol/L [place] Urea nitrogen [Mass/Vol] 18 mg/dL 7 - 20 mg/dL [place] Test Performed by [facility], [address], [place], [place] [address] [place] [address] EKG 12 Leadon 11-24-2020 [facility] Cardiology Results From Marla/Jeanne - 11/24/2020 6:48 PM EST [facility] Test Date: 2020-11-22 Pat Name: Will Jacinto Department: Room: 158 Gender: F 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: MALINDA : 1965 Requested By: JOEL NELSON Order Number: [id number] [place] MD: Brock Ortiz Measurements Intervals Curlew Rate: 101 P: 58 CA: 176 QRS: -43 QRSD: 108 T: 47 QT: 380 QTc: 493 Interpretive Statements SINUS TACHYCARDIA LEFT ANTERIOR FASCICULAR BLOCK LATE PRECORDIAL R/S TRANSITION LEFT VENTRICULAR HYPERTROPHY Electronically Signed On 11-24-2020 18:47:09 EST by Brock [employer] [facility] Test Date: 2020-11-22 Pat Name: Will Jacinto Department: Room: 158 Gender: F 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: MALINDA : 1965 Requested By: JOEL NELSON Order Number: [id number] [place] MD: Brock Ortiz Measurements Intervals Curlew Rate: 101 P: 58 CA: 176 QRS: -43 QRSD: 108 T: 47 QT: 380 QTc: 493 Interpretive Statements SINUS TACHYCARDIA LEFT ANTERIOR FASCICULAR BLOCK LATE PRECORDIAL R/S TRANSITION LEFT VENTRICULAR HYPERTROPHY Electronically Signed On 11-24-2020 18:47:09 EST by [employer] POCT Glucoseon 11-24-2020 Glucose [Mass/Vol] 159 mg/dL High 70 - 100 mg/dL [facility] [employer] Comment on above: Test performed by [employer] ucose meter. Results may be 10%-15% lower than serum/plasma values. (CLIA ID [id number]) Interpretation and review of laboratory results Abnormal [employer] [employer] Test Performed by [facility], [address], [place], [place] [address] [employer], [employer] Glucose [Mass/Vol] 235 mg/dL High 70 - 100 mg/dL [facility] [employer] Comment on above: Test performed by [employer] ucose meter. Results may be 10%-15% lower than serum/plasma values. (CLIA ID [id number]) Interpretation and review of laboratory results Abnormal [employer], [employer] Test Performed by [facility], [address], [place], [place] [address] [place] [address] Glucose [Mass/Vol] 298 mg/dL High 70 - 100 mg/dL [place] Comment on above: Test performed by gl ucose meter. Results may be 10%-15% lower than serum/plasma values. (CLIA ID [id number]) Interpretation and review of laboratory results Abnormal [place] Test Performed by [facility], [address] Glucose [Mass/Vol] 358 mg/dL High 70 - 100 mg/dL [place] Comment on above: Test performed by gl ucose meter. Results may be 10%-15% lower than serum/plasma values. (CLIA ID [id number]) Interpretation and review of laboratory results Abnormal [place] Test Performed by [facility], [address] Troponinon 11-24-2020 Troponin I.cardiac [Mass/Vol] ng/mL 0 - 0.034 ng/mL [place] Comment on above: . Test Performed by [facility], [address] Troponin I.cardiac [Mass/Vol] ng/mL 0 - 0.034 ng/mL [place] Comment on above: . Test Performed by [facility], [address] CBC Auto Differentialon 11-08 Absolute Baso # 0.0 10*3/uL 0 - 0.2 10*3/uL [place] Absolute Neut # 7.6 10*3/uL High 1.8 - 7 10*3/uL [place] Basophils/100 WBC (Bld) 0.3 % 0 - 2 % [place] Eosinophils (Bld) [#/Vol] 0.0 10*3/uL 0 - 0.5 10*3/uL [place] Eosinophils/100 WBC (Bld) 0.1 % Low 1 - 6 % [place] Erythrocyte distribution width (RBC) [Ratio] 16.3 % High 11.5 - 14.5 % [place] Granulocytes/100 WBC (Bld) 85.6 % High 40 - 80 % [place] Hematocrit (Bld) [Volume fraction] 33.4 % Low 35 - 47 % [place] Hemoglobin (Bld) [Mass/Vol] 11.2 g/dL Low 11.7 - 16 g/dL [place] Interpretation and review of laboratory results Abnormal [place] Lymphocytes (Bld) [#/Vol] 0.7 10*3/uL Low 1 - 4.3 10*3/uL [place] Lymphocytes/100 WBC (Bld) 7.9 % Low 20 - 40 % [place] MCH (RBC) [Entitic mass] 29.5 pg 26 - 34 pg [place] MCHC (RBC) [Mass/Vol] 33.5 % 32 - 36 % [place] MCV (RBC) [Entitic vol] 88.0 fL 79 - 98 fL [place] Monocytes (Bld) [#/Vol] 0.5 10*3/uL 0 - 0.8 10*3/uL [place] Monocytes/100 WBC (Bld) 6.1 % 2 - 10 % [place] Platelet mean volume (Bld) [Entitic vol] 8.0 fL 7.4 - 10.4 fL [place] Platelets (Bld) [#/Vol] 343 10*3/uL 140 - 440 10*3/uL [place] RBC (Bld) [#/Vol] 3.80 10*6/uL 3.8 - 5.2 10*6/uL [place] WBC (Bld) [#/Vol] 8.9 10*3/uL 3.6 - 10.7 10*3/uL [place] Test Performed by [facility], [address] [place], [place], [place] [address] [place] [address] Comprehensive Metabolic Pane gigi 11-23-2020 Albumin [Mass/Vol] 3.9 g/dL 3.5 - 5 g/dL [place] ALP [Catalytic activity/Vol] 136 U/L High 38 - 126 U/L [place] ALT [Catalytic activity/Vol] 42 U/L High 0 - 34 U/L [place] Comment on above: The ALT test is perf ormed by an updated assay method. Please note that the reference intervals have been changed and are now sex specific. Anion gap [Moles/Vol] 11 mmol/L [place] AST [Catalytic activity/Vol] 31 U/L 15 - 46 U/L [place] Bilirubin Ql (U) 0.6 mg/dL 0.2 - 1.3 mg/dL [place] Calcium [Mass/Vol] 9.6 mg/dL 8.4 - 10. 4 mg/dL [place] Chloride [Moles/Vol] 94 mmol/L Low 98 - 10 7 mmol/L [place] CO2 [Moles/Vol] 28 mmol/L 22 - 30 mmol/L [place] Creatinine [Mass/Vol] 0.86 mg/dL 0.52 - 1.25 mg/dL [place] EGFR IF NonAfrican [place]ic 76.5 mL/min >60 [place] Comment on above: KDIGO guidelines pro [...] MDRD (S/P/Bld) [Vol rate/Area] 88.7 mL/min/{1.73_m2} >60 [place] Glucose [Mass/Vol] 481 mg/dL Critically high 70 - 1 00 mg/dL [place] Interpretation and review of laboratory results Abnormal [place] Potassium [Moles/Vol] 4.8 mmol/L 3.5 - 5.1 mmol/L [place] Protein [Mass/Vol] 6.9 g/dL 6.3 - 8.2 g/dL [place] Sodium [Moles/Vol] 133 mmol/L Low 135 - 145 mmol/L [place] Urea nitrogen [Mass/Vol] 20 mg/dL 7 - 20 mg/dL [place] Test Performed by [facility], [address] [place], [place] [address] [place] GLUCOSEon 11-23-2020 Glucose [Mass/Vol] 521 mg/dL Critically high 70 - 1 00 mg/dL [place] Interpretation and review of laboratory results Abnormal [place] Test Performed by [facility], [address] [place], [place], [place] [address] [place] [address] Hemoglobin A1Con 11-23-2020 eAG 240 mg/dL [place] HbA1c (Bld) [Mass fraction] 10.0 % Abnormal [place] Comment on above: Normal less than 5.7 % Prediabetes 5.7% to 6.4% Diabetes 6.5% or higher --HgbA1C levels may not be accurate in patients who have renal disease, received recent blood transfusions, are anemic, or who have dyshemoglobinemia. Interpretation and review of laboratory results Abnormal [place] Test Performed by [facility], [address] [place], [place] [address] [place] [address] POCT Glucoseon 11-23-2020 Glucose [Mass/Vol] 305 mg/dL High 70 - 100 mg/dL [place] Comment on above: Test performed by ucose meter. Results may be 10%-15% lower than serum/plasma values. (CLIA ID [id number]) Interpretation and review of laboratory results Abnormal [facility] [place] Test Performed by [facility], [address] [place], [place] [address] [facility] [place] Glucose [Mass/Vol] 427 mg/dL High 70 - 100 mg/dL [facility] [place] Comment on above: Test performed by gl ucose meter. Results may be 10%-15% lower than serum/plasma values. (CLIA ID [id number]) Interpretation and review of laboratory results Abnormal [facility] Test Performed by [facility], [address] [place], [place] [address] [facility] [place] Glucose [Mass/Vol] 408 mg/dL High 70 - 100 mg/dL [facility] [place] Comment on above: Test performed by gl ucose meter. Results may be 10%-15% lower than serum/plasma values. (CLIA ID [id number]) Interpretation and review of laboratory results Abnormal [facility] Test Performed by [facility], [address] [place], [place] [address] [facility] [place] Glucose [Mass/Vol] 432 mg/dL High 70 - 100 mg/dL [facility] Comment on above: Test performed by gl ucose meter. Results may be 10%-15% lower than serum/plasma values. (CLIA ID [id number]) Interpretation and review of laboratory results Abnormal [facility] Test Performed by [facility], [address] [place], [place] [address] [facility] [place] Respiratory Panel, Molecular , with [...] management decisions. This assay was developed by [employer] and distributed under an Emergency Use Authorization (EUA) granted by the FDA for the qualitative detection of SARS-CoV-2 nucleic acid. Provider and patient fact sheets can be found at https://www.fda.gov/medi a/500446/download and https://www.fda.gov/medi a/651102/download. [place] Test Performed by [address] [address] [place] Basic Metabolic Panelon 11-08 Anion gap [Moles/Vol] 17 mmol/L [place] Calcium [Mass/Vol] 9.8 mg/dL 8.4 - 10. 4 mg/dL [place] Chloride [Moles/Vol] 94 mmol/L Low 98 - 10 7 mmol/L [place] CO2 [Moles/Vol] 23 mmol/L 22 - 30 mmol/L [place] Creatinine [Mass/Vol] 0.75 mg/dL 0.52 - 1.25 mg/dL [place] EGFR IF NonAfrican Green[place]ic >90.0 >60 mL/min [place] Comment on above: KDIGO guidelines pro [...] MDRD (S/P/Bld) [Vol rate/Area] mL/min/{1.73_m2} >60 mL/min [place] Glucose [Mass/Vol] 522 mg/dL Critically high 70 - 1 00 mg/dL [place] Potassium [Moles/Vol] 5.5 mmol/L High 3.5 - 5.1 mmol/L [place] Sodium [Moles/Vol] 134 mmol/L Low 135 - 145 mmol/L [place] Urea nitrogen [Mass/Vol] 20 mg/dL 7 - 20 mg/dL [place] COVID-19, Rapidon 11-22-2020 Sodium [Moles/Vol] see below [place] Comment on above: Not Detected Expected Result: Not Detected _ Isothermal nucleic acid amplification performed on the [employer] System by the [facility] Laboratory Negative results do not preclude SARS-CoV-2 infection and should not be used as the sole basis for treatment or other patient management decisions. This assay was developed by [employer] and distributed under an Emergency Use Authorization (EUA) granted by the FDA for the qualitative detection of SARS-CoV-2 nucleic acid. Provider and patient fact sheets can be found at https://www.fda.gov/media/272244/download and https://www.fda.gov/media/839315/download. Test Performed by [facility], [address] [place] [address]. [place], [place] [address] ORDER WAS CANCELLED 11/22/20 20:20, wrong test code. [place] Abdomen Pelvis W Contrast on 11-22-2020 [facility] Incoming Radiology Results From [facility] - 11/22/2020 7:44 PM EST Patient Name: WILL JACINTO Computed Tomography ACCESSION EXAM DATE/TIME PROCEDURE ORDERING PROVIDER [id number] 11/22/2020 19:[address] Abdomen/Pelvis w/ IV [id number] -JOEL NELSON Contrast (IV Onl CPT code 31047 Q9967 Reason For Exam (CT Abdomen/Pelvis w/ [...] KEVIN Transcribed Date and Time: 11/22/2020 7:44 [place] Patient Name: WILL ALVARADO Computed Tomography ACCESSION EXAM DATE/TIME PROCEDURE ORDERING PROVIDER [id number] 11/22/2020 19:[address] Abdomen/Pelvis w/ IV [id number] -JOEL NELSON Contrast (IV Onl CPT code 04248 Q9967 Reason For Exam (CT Abdomen/Pelvis w/ [...] KEVIN Transcribed Date and Time: 11/22/2020 7:44 [place] Hemogram (CBC) w/Auto Diffon 11-22-2020 Absolute Baso # 0.0 10*3/uL 0 - 0.2 10*3/uL [place] Absolute Neut # 8.1 10*3/uL High 1.8 - 7 10*3/uL [place] Basophils/100 WBC (Bld) 0.5 % 0 - 2 % [place] Eosinophils (Bld) [#/Vol] 0.0 10*3/uL 0 - 0.5 10*3/uL [place] Eosinophils/100 WBC (Bld) 0.3 % Low 1 - 6 % [place] Erythrocyte distribution width (RBC) [Ratio] 16.1 % High 11.5 - 14.5 % [place] Granulocytes/100 WBC (Bld) 84.9 % High 40 - 80 % [place] Hematocrit (Bld) [Volume fraction] 36.1 % 35 - 47 % [place] Hemoglobin (Bld) [Mass/Vol] 12.0 g/dL 11.7 - 16 g/dL [place] Interpretation and review of laboratory results Abnormal [place] Lymphocytes (Bld) [#/Vol] 0.9 10*3/uL Low 1 - 4.3 10*3/uL [place] Lymphocytes/100 WBC (Bld) 9.4 % Low 20 - 40 % [place] MCH (RBC) [Entitic mass] 29.0 pg 26 - 34 pg [place] MCHC (RBC) [Mass/Vol] 33.3 % 32 - 36 % [place] MCV (RBC) [Entitic vol] 87.2 fL 79 - 98 fL [place] Monocytes (Bld) [#/Vol] 0.5 10*3/uL 0 - 0.8 10*3/uL [place] Monocytes/100 WBC (Bld) 4.9 % 2 - 10 % [place] Platelet mean volume (Bld) [Entitic vol] 8.1 fL 7.4 - 10.4 fL [place] Platelets (Bld) [#/Vol] 404 10*3/uL 140 - 440 10*3/uL [place] RBC (Bld) [#/Vol] 4.15 10*6/uL 3.8 - 5.2 10*6/uL [place] WBC (Bld) [#/Vol] 9.6 10*3/uL 3.6 - 10.7 10*3/uL [place] Test Performed by [facility], [address] [place], [place] [address] [place] Hepatic Function Panelon Albumin [Mass/Vol] 4.2 g/dL 3.5 - 5 g/dL [place] ALP [Catalytic activity/Vol] 181 U/L High 38 - 126 U/L [place] ALT [Catalytic activity/Vol] 44 U/L High 0 - 34 U/L [place] Comment on above: The ALT test is perf ormed by an updated assay method. Please note that the reference intervals have been changed and are now sex specific. AST [Catalytic activity/Vol] 30 U/L 15 - 46 U/L [place] Bilirubin Ql (U) 0.6 mg/dL 0.2 - 1.3 mg/dL [place] Bilirubin.direct [Mass/Vol] 0.0 mg/dL 0 - 0.3 mg/dL [place] Protein [Mass/Vol] 7.4 g/dL 6.3 - 8.2 g/dL [place] Otheron 11-22-2020 Interpretation and review of laboratory results Abnormal [place] Test Performed by [facility], [address] [place], [place] [address] [place] [address] POCT GLUCOSEon 11-22-2020 Glucose [Mass/Vol] 470 mg/dL [place] Interpretation and review of laboratory results Normal [place] QC OK? yes [place] Troponin x1on 11-22-2020 Troponin I.cardiac [Mass/Vol] ng/mL 0 - 0.034 ng/mL [place] Comment on above: . Test Performed by [facility], [address] [place], [place] [address] [place] Urinalysison 11-22-2020 Appearance (U) Turbid Abnormal Clear NA [place] Comment on above: . Bilirubin Urine Negative Negative mg/dL [place] Comment on above: . Color (U) Light-Kelso Abnormal Lt. Yellow NA [place] Comment on above: . Glucose, Ur >1,000 Abnormal Normal (<70) mg/dL [place] Comment on above: . Interpretation and review of laboratory results Abnormal [place] Ketones Ql (U) 40 mg/dL Abnormal Negative [place] Comment on above: . LEUKOCYTES, UA 75 Abnormal Negative Kat/uL [place] Comment on above: . Nitrite, Urine Negative Negative NA [place] Comment on above: . Occult Blood,Urine >1.0 Abnormal Negative mg/dL [place] Comment on above: . pH (U) 6.0 [pH] [place] Comment on above: . Protein (U) [Mass/Vol] 10 mg/dL Abnormal Negative Me [place] Comment on above: . RBC (U) [#/Vol] /uL Abnormal 0 - 2 /[HPF] [place] Comment on above: . Specific Hester, Urine 1.025 M [place] Comment on above: . Squam Epithel, UA 0-2 3 - 5 /[HPF] [place] Comment on above: . Urobilinogen, Urine Normal Normal (0-1) mg/dL [place] Comment on above: . WBC, UA 0-2 0 - 5 /[HPF] [place] Comment on above: . Test Performed by [facility], [address] [place], [place] [address] [place] XR CHEST PORTABLEon 11-22-19 21 [facility] In[facility] Rad[facility] Results From [facility] - 11/22/2020 6:33 PM EST Patient Name: WILL JACINTO Diagnostic Radiology ACCESSION EXAM DATE/TIME PROCEDURE ORDERING PROVIDER [id number] 11/22/2020 18:30 EST CR Chest Portable [id number] -JOEL NELSON CPT code 18076 Reason For Exam (CR Chest Portable) SOB [...] B Transcribed Date and Time: 11/22/2020 6:33 [place] Patient Name: WILL ALVARADO Diagnostic Radiology ACCESSION EXAM DATE/TIME PROCEDURE ORDERING PROVIDER [id number] 11/22/2020 18:30 EST CR Chest Portable [id number] -JOEL NELOSN CPT code 19392 Reason For Exam (CR Chest Portable) SOB [...] B Transcribed Date and Time: 11/22/2020 6:33 [place] NM GASTRIC EMPTYINGon 2019 [facility] Incoming Radiology Results From [facility] - 09/30/2020 2:38 PM EST Patient Name: WILL JACINTO ---Nuc Med--- Exam Date/Time 09/30/2020 14:12:07 EST Exam NM Gastric Emptying Study Ordering Physician MD MUNIZ REYNALDO C. Accession Number [id number] CPT4 Codes 06999 () Reason For Exam nausea, diabetees Report [...] ANTHONY Transcribed Date and Time: 09/30/2020 2:38 [facility] [place] Patient Name: WILL ALVARADO ---Nuc Med--- Exam Date/Time 09/30/2020 14:12:07 EST Exam NM Gastric Emptying Study Ordering Physician MD MUNIZ REYNALDO C. Accession Number [id number] CPT4 Codes 54878 () Reason For Exam nausea, diabetees Report [...] ANTHONY Transcribed Date and Time: 09/30/2020 2:38 [facility] [place] POC Glucose, Whole Bloodon 1 11-30-2019 Glucose [Mass/Vol] mg/dL High 70 - 100 mg/dL [facility] [place] Comment on above: Test performed by [employer] ucose meter. Results may be 10%-15% lower than serum/plasma values. (CLIA ID [id number]) Interpretation and review of laboratory results Abnormal [facility] [place]approved [place] Sodium [Moles/Vol] see below [facility] Comment on above: No confirmation rece ived. Test Performed by [facility], [address] [place], [place] [address] [facility] [place] POCT Glucoseon 09-30-2020 Glucose [Mass/Vol] 394 mg/dL High 70 - 100 mg/dL [facility] Comment on above: Test performed by gl ucose meter. Results may be 10%-15% lower than serum/plasma values. (CLIA ID [id number]) Interpretation and review of laboratory results Abnormal [facility] Test Performed by [facility], [address] [place], [place] [address] [facility] [place] Glucose [Mass/Vol] 356 mg/dL High 70 - 100 mg/dL [facility] Comment on above: Test performed by gl ucose meter. Results may be 10%-15% lower than serum/plasma values. (CLIA ID [id number]) Interpretation and review of laboratory results Abnormal [facility] Test Performed by [facility], [address] [place], [place] [address] [facility] [place] Glucose [Mass/Vol] 257 mg/dL High 70 - 100 mg/dL [facility] Comment on above: Test performed by gl ucose meter. Results may be 10%-15% lower than serum/plasma values. (CLIA ID [id number]) Interpretation and review of laboratory results Abnormal [facility] Test Performed by [facility], [address] [place], [place] [address] [facility] [place] POCT Glucoseon 09-29-2020 Glucose [Mass/Vol] 209 mg/dL High 70 - 100 mg/dL [facility] Comment on above: Test performed by gl ucose meter. Results may be 10%-15% lower than serum/plasma values. (CLIA ID [id number]) Interpretation and review of laboratory results Abnormal [facility] Test Performed by [facility], [address] [place], [place] [address] [facility] [place] Glucose [Mass/Vol] 301 mg/dL High 70 - 100 mg/dL [facility] [place] Comment on above: Test performed by gl ucose meter. Results may be 10%-15% lower than serum/plasma values. (CLIA ID [id number]) Interpretation and review of laboratory results Abnormal [facility] Test Performed by [facility], [address] [place], [place] [address] [facility] Glucose [Mass/Vol] 200 mg/dL High 70 - 100 mg/dL [facility] [place] Comment on above: Test performed by gl ucose meter. Results may be 10%-15% lower than serum/plasma values. (CLIA ID [id number]) Interpretation and review of laboratory results Abnormal [facility] [place] Test Performed by [facility], [address] [place], [place] [address] [facility] COVID-19on 09-28-2020 SARS-CoV-2 Not Detected Not Detected [facility], [place] Comment on above: Not Detected Expected Result: Not Detected _ Real-time, RT-PCR performed on the [employer] System by the [facility] Microbiology Service Negative results do not preclude SARS-CoV-2 infection and should not be used as the sole basis for treatment or other patient management decisions. This assay was developed by [employer] and [employer] and distributed under an Emergency Use Authorization (EUA) granted by the FDA for the qualitative detection of SARS-CoV-2 nucleic acid. Provider and patient fact sheets can be found at https://www.fda.gov/media/543821/download and https://www.fda.gov/media/007854/download. Test Performed by [facility], [address] [place] [address] Specimen Source Comment:Nasopharyngeal Swab [facility]rum, [place] POCT Glucoseon 09-28-2020 Glucose [Mass/Vol] 346 mg/dL High 70 - 100 mg/dL [facility] [place], [place] Comment on above: Test performed by gl ucose meter. Results may be 10%-15% lower than serum/plasma values. (CLIA ID [id number]) Interpretation and review of laboratory results Abnormal [facility] Test Performed by [facility], [address], [place], [place] [address] [facility] Glucose [Mass/Vol] 385 mg/dL High 70 - 100 mg/dL [facility] Comment on above: Test performed by gl ucose meter. Results may be 10%-15% lower than serum/plasma values. (CLIA ID [id number]) Interpretation and review of laboratory results Abnormal [facility] [place] Test Performed by [facility] [employer] [facility], [address], [place] [address] [facility] Glucose [Mass/Vol] 393 mg/dL High 70 - 100 mg/dL [facility] Comment on above: Test performed by gl ucose meter. Results may be 10%-15% lower than serum/plasma values. (CLIA ID [id number]) Interpretation and review of laboratory results Abnormal [facility] Test Performed by [facility] [employer] [facility], [address] [place], [place] [address] [facility] Glucose [Mass/Vol] 322 mg/dL High 70 - 100 mg/dL [facility] Comment on above: Test performed by gl ucose meter. Results may be 10%-15% lower than serum/plasma values. (CLIA ID [id number]) Interpretation and review of laboratory results Abnormal [facility] Test Performed by [facility], [address], [place] [address] [facility] Glucose [Mass/Vol] 325 mg/dL High 70 - 100 mg/dL [facility] Comment on above: Test performed by gl ucose meter. Results may be 10%-15% lower than serum/plasma values. (CLIA ID [id number]) Interpretation and review of laboratory results Abnormal [facility] Test Performed by [facility], [address], [place] [address] [facility] Glucose [Mass/Vol] 230 mg/dL High 70 - 100 mg/dL [facility] [place] Comment on above: Test performed by gl ucose meter. Results may be 10%-15% lower than serum/plasma values. (CLIA ID [id number]) Interpretation and review of laboratory results Abnormal [facility] Test Performed by [facility], [address] [place], [place] [address] [facility] Glucose [Mass/Vol] 233 mg/dL High 70 - 100 mg/dL [facility] Comment on above: Test performed by gl ucose meter. Results may be 10%-15% lower than serum/plasma values. (CLIA ID [id number]) Interpretation and review of laboratory results Abnormal [facility] Test Performed by [facility], [address], [place] [address] [facility] POCT Glucoseon 09-27-2020 Glucose [Mass/Vol] 248 mg/dL High 70 - 100 mg/dL [facility] Comment on above: Test performed by gl ucose meter. Results may be 10%-15% lower than serum/plasma values. (CLIA ID [id number]) Interpretation and review of laboratory results Abnormal [facility] Test Performed by [facility], [address], [place], [place] [address] [place], [place] [address] [place] Glucose [Mass/Vol] 275 mg/dL High 70 - 100 mg/dL [facility] Comment on above: Test performed by gl ucose meter. Results may be 10%-15% lower than serum/plasma values. (CLIA ID [id number]) Interpretation and review of laboratory results Abnormal [facility] Test Performed by [facility], [address], [place], [place] [address] [place] [address] [facility]- [place] Glucose [Mass/Vol] 312 mg/dL High 70 - 100 mg/dL [facility] Comment on above: Test performed by gl ucose meter. Results may be 10%-15% lower than serum/plasma values. (CLIA ID [id number]) Interpretation and review of laboratory results Abnormal [facility] [place] Test Performed by [facility], [address], [place], [place] [address] [facility] Glucose [Mass/Vol] 151 mg/dL High 70 - 100 mg/dL [facility] [place] Comment on above: Test performed by gl ucose meter. Results may be 10%-15% lower than serum/plasma values. (CLIA ID [id number]) Interpretation and review of laboratory results Abnormal [place] Test Performed by [facility], [address], [place], [place] [address] [place] CBC Auto Differentialon 09-08 Absolute Baso # 0.1 10*3/uL 0 - 0.2 10*3/uL [place] Absolute Neut # 7.0 10*3/uL 1.8 - 7 10*3/uL [place] Basophils/100 WBC (Bld) 1.0 % 0 - 2 % [place] Eosinophils (Bld) [#/Vol] 0.1 10*3/uL 0 - 0.5 10*3/uL [place] Eosinophils/100 WBC (Bld) 1.2 % 1 - 6 % [place] Erythrocyte distribution width (RBC) [Ratio] 15.5 % High 11.5 - 14.5 % [place] Granulocytes/100 WBC (Bld) 71.3 % 40 - 80 % [place] Hematocrit (Bld) [Volume fraction] 38.5 % 35 - 47 % [place] Hemoglobin (Bld) [Mass/Vol] 12.6 g/dL 11.7 - 16 g/dL [place] Interpretation and review of laboratory results Abnormal [place] Lymphocytes (Bld) [#/Vol] 1.6 10*3/uL 1 - 4.3 10*3/uL [place] Lymphocytes/100 WBC (Bld) 16.1 % Low 20 - 40 % [place] MCH (RBC) [Entitic mass] 28.5 pg 26 - 34 pg [place] MCHC (RBC) [Mass/Vol] 32.7 % 32 - 36 % [place] MCV (RBC) [Entitic vol] 87.2 fL 79 - 98 fL [place] Monocytes (Bld) [#/Vol] 1.0 10*3/uL High 0 - 0.8 10*3/uL [place] Monocytes/100 WBC (Bld) 10.4 % High 2 - 10 % [place] Platelet mean volume (Bld) [Entitic vol] 8.1 fL 7.4 - 10.4 fL [place] Platelets (Bld) [#/Vol] 508 10*3/uL High 140 - 440 10*3/uL [place] RBC (Bld) [#/Vol] 4.41 10*6/uL 3.8 - 5.2 10*6/uL [place] WBC (Bld) [#/Vol] 9.8 10*3/uL 3.6 - 10.7 10*3/uL [place] Test Performed by [facility], [address] [place], [place], [place] [address] [place] Comprehensive Metabolic Pane gigi 09-26-2020 Albumin [Mass/Vol] 4.0 g/dL 3.5 - 5 g/dL [place] ALP [Catalytic activity/Vol] 120 U/L 38 - 126 U/L [place] ALT [Catalytic activity/Vol] 127 U/L High 0 - 34 U/L [place] Comment on above: The ALT test is perf ormed by an updated assay method. Please note that the reference intervals have been changed and are now sex specific. Anion gap [Moles/Vol] 12 mmol/L [place] AST [Catalytic activity/Vol] 64 U/L High 15 - 46 U/L [place] Bilirubin Ql (U) 1.4 mg/dL High 0.2 - 1.3 mg/dL [place] Calcium [Mass/Vol] 8.9 mg/dL 8.4 - 10. 4 mg/dL [place] Chloride [Moles/Vol] 97 mmol/L Low 98 - 10 7 mmol/L [place] CO2 [Moles/Vol] 24 mmol/L 22 - 30 mmol/L [place] Creatinine [Mass/Vol] 1.13 mg/dL 0.52 - 1.25 mg/dL [place] EGFR IF NonAfrican [place]ic 55.1 mL/min Abnormal >60 [place] Comment on above: KDIGO guidelines pro [...] MDRD (S/P/Bld) [Vol rate/Area] 63.8 mL/min/{1.73_m2} >60 [place] Glucose [Mass/Vol] 207 mg/dL High 70 - 100 mg/dL [place] Interpretation and review of laboratory results Abnormal [place] Potassium [Moles/Vol] 4.8 mmol/L 3.5 - 5.1 mmol/L [place] Protein [Mass/Vol] 7.7 g/dL 6.3 - 8.2 g/dL [place] Sodium [Moles/Vol] 133 mmol/L Low 135 - 145 mmol/L [place] Urea nitrogen [Mass/Vol] 32 mg/dL High 7 - 20 mg/dL [place] Test Performed by [facility], [address] [place], [place] [address] [place] POCT Glucoseon 09-26-2020 Glucose [Mass/Vol] 124 mg/dL High 70 - 100 mg/dL [place] Comment on above: Test performed by ucose meter. Results may be 10%-15% lower than serum/plasma values. (CLIA ID [id number]) Interpretation and review of laboratory results Abnormal [place] Test Performed by [facility], [address], [place] [address] [facility] [place] Glucose [Mass/Vol] 225 mg/dL High 70 - 100 mg/dL [facility] [place] Comment on above: Test performed by gl ucose meter. Results may be 10%-15% lower than serum/plasma values. (CLIA ID [id number]) Interpretation and review of laboratory results Abnormal [facility] Test Performed by [facility], [address], [place] [address] [facility] Glucose [Mass/Vol] 308 mg/dL High 70 - 100 mg/dL [facility] Comment on above: Test performed by gl ucose meter. Results may be 10%-15% lower than serum/plasma values. (CLIA ID [id number]) Interpretation and review of laboratory results Abnormal [facility] Test Performed by [facility], [address] [place] [address] [facility] Glucose [Mass/Vol] 259 mg/dL High 70 - 100 mg/dL [facility] Comment on above: Test performed by gl ucose meter. Results may be 10%-15% lower than serum/plasma values. (CLIA ID [id number]) Interpretation and review of laboratory results Abnormal [facility] Test Performed by [facility], [address], [place] [address] [facility] Glucose [Mass/Vol] 223 mg/dL High 70 - 100 mg/dL [facility] Comment on above: Test performed by gl ucose meter. Results may be 10%-15% lower than serum/plasma values. (CLIA ID [id number]) Interpretation and review of laboratory results Abnormal [facility] Test Performed by [facility], [address] [place], [place] [address] [facility] ECHO Complete 2D W Doppler W Coloron 09-25-2020 [facility] Incoming Cardiology Results From [facility] - 09/25/2020 4:03 PM EST TRANSTHORACIC ECHOCARDIOGRAM PATIENT: Will Jacinto STUDY DATE: 09/25/2020 : 1965 AGE: 54 HT/WT: 167.6 cm (66 155.9 kg in) (343 lb) GENDER: F BP: 130 / 87 LOCATION: [facility] PATIENT Inpatient [facility] STATUS: *ORDERING PHYSICIAN: * Priyank Rios MD *READING PHYSICIAN: * Ga Davenport MD *SYRUP MIXER HELPER: * Jayda Richardson INDICATIONS: SVT. CONCLUSIONS SUMMARY: [...] Ga Davenport MD 09/25/2020 16:02 Prior Signatures: [facility] [place] TRANSTHORACIC ECHOCARDIOGRAM PATIENT: Will Jacinto STUDY DATE: 09/25/2020 : 1965 AGE: 54 HT/WT: 167.6 cm (66 155.9 kg in) (343 lb) GENDER: F BP: 130 / 87 [facility]: [facility] [facility] PATIENT Inpatient [facility] STATUS: *ORDERING PHYSICIAN: * Priyank Rios MD *READING PHYSICIAN: * Ga Davenport MD *SYRUP MIXER HELPER: * Jayda Richardson INDICATIONS: SVT. CONCLUSIONS SUMMARY: [...] Ga Davenport MD 09/25/2020 16:02 Prior Signatures[facility] Seconds [place]approved [place] POCT Glucoseon 09-25-2020 Glucose [Mass/Vol] 126 mg/dL High 70 - 100 mg/dL [place] Comment on above: Test performed by PanX ucose meter. Results may be 10%-15% lower than serum/plasma values. (CLIA ID [id number]) Interpretation and review of laboratory results Abnormal [place] Test Performed by [facility], [address] [place], [place] [address] [place] [address] Glucose [Mass/Vol] 124 mg/dL High 70 - 100 mg/dL [place] Comment on above: Test performed by PanX ucose meter. Results may be 10%-15% lower than serum/plasma values. (CLIA ID [id number]) Interpretation and review of laboratory results Abnormal [place] Test Performed by [facility], [address] [place], [place] [address] [facility] Glucose [Mass/Vol] 173 mg/dL High 70 - 100 mg/dL [facility] [place] Comment on above: Test performed by gl ucose meter. Results may be 10%-15% lower than serum/plasma values. (CLIA ID [id number]) Interpretation and review of laboratory results Abnormal [facility] Test Performed by [facility] [employer] [facility], [address] [place] [address] [place] Glucose [Mass/Vol] 121 mg/dL High 70 - 100 mg/dL [facility] Comment on above: Test performed by gl ucose meter. Results may be 10%-15% lower than serum/plasma values. (CLIA ID [id number]) Interpretation and review of laboratory results Abnormal [place] Test Performed by [facility], [address] [place], [place] [address] [place] XR ABDOMEN (KUB) (SINGLE AP VIEW)on 09-25-2020 [facility] Incoming Radiology Results From [facility] - 09/25/2020 3:10 PM EST Patient Name: WILL JACINTO ---Diagnostic Radiology--- Exam Date/Time 09/25/2020 14:00:36 EST Exam CR Abdomen AP Ordering Physician DO HILL LISA Accession Number [id number] CPT4 Codes 74501 () Reason For Exam ileus Report CLINICAL [...] HARLAN Transcribed Date and Time: 09/25/2020 3:09 [place] Patient Name: WILL ALVARADO ---Diagnostic Radiology--- Exam Date/Time 09/25/2020 14:00:36 EST Exam CR Abdomen AP Ordering Physician DO IHLL LISA Accession Number [id number] CPT4 Codes 00326 () Reason For Exam ileus Report CLINICAL [...] HARLAN Transcribed Date and Time: 09/25/2020 3:09 [place] CBC Auto Differentialon 09-08 Absolute Baso # 0.0 10*3/uL 0 - 0.2 10*3/uL [place] Absolute Neut # 5.3 10*3/uL 1.8 - 7 10*3/uL [place] Basophils/100 WBC (Bld) 0.4 % 0 - 2 % [place] Eosinophils (Bld) [#/Vol] 0.1 10*3/uL 0 - 0.5 10*3/uL [place] Eosinophils/100 WBC (Bld) 1.6 % 1 - 6 % [place] Erythrocyte distribution width (RBC) [Ratio] 15.8 % High 11.5 - 14.5 % [place] Granulocytes/100 WBC (Bld) 74.9 % 40 - 80 % [place] Hematocrit (Bld) [Volume fraction] 59.6 % High 35 - 47 % [place] Hemoglobin (Bld) [Mass/Vol] 19.3 g/dL High 11.7 - 16 g/dL [place] Interpretation and review of laboratory results Abnormal [place] Lymphocytes (Bld) [#/Vol] 1.0 10*3/uL 1 - 4.3 10*3/uL [place] Lymphocytes/100 WBC (Bld) 14.1 % Low 20 - 40 % [place] MCH (RBC) [Entitic mass] 28.3 pg 26 - 34 pg [place] MCHC (RBC) [Mass/Vol] 32.4 % 32 - 36 % [place] MCV (RBC) [Entitic vol] 87.2 fL 79 - 98 fL [place] Monocytes (Bld) [#/Vol] 0.6 10*3/uL 0 - 0.8 10*3/uL [place] Monocytes/100 WBC (Bld) 9.0 % 2 - 10 % [place] Platelet mean volume (Bld) [Entitic vol] 7.5 fL 7.4 - 10.4 fL [place] Platelets (Bld) [#/Vol] 215 10*3/uL 140 - 440 10*3/uL [place] RBC (Bld) [#/Vol] 6.83 10*6/uL High 3.8 - 5.2 10*6/uL [place] WBC (Bld) [#/Vol] 7.1 10*3/uL 3.6 - 10.7 10*3/uL [place] Test Performed by [facility], [address], [place], [place] [address] [place] Comprehensive Metabolic Pane gigi 09-24-2020 Albumin [Mass/Vol] 3.6 g/dL 3.5 - 5 g/dL [place] ALP [Catalytic activity/Vol] 116 U/L 38 - 126 U/L [place] ALT [Catalytic activity/Vol] 113 U/L High 0 - 34 U/L [place] Comment on above: The ALT test is perf ormed by an updated assay method. Please note that the reference intervals have been changed and are now sex specific. Anion gap [Moles/Vol] 8 mmol/L [place] AST [Catalytic activity/Vol] 53 U/L High 15 - 46 U/L [place] Bilirubin Ql (U) 0.9 mg/dL 0.2 - 1.3 mg/dL [place] Calcium [Mass/Vol] 8.7 mg/dL 8.4 - 10. 4 mg/dL [place] Chloride [Moles/Vol] 99 mmol/L 98 - 10 7 mmol/L [place] CO2 [Moles/Vol] 27 mmol/L 22 - 30 mmol/L [place] Creatinine [Mass/Vol] 1.97 mg/dL High 0.52 - 1.25 mg/dL [place] EGFR IF NonAfrican [place]ic 28.1 mL/min Abnormal >60 [place] Comment on above: KDIGO guidelines pro [...] (S/P/Bld) [Vol rate/Area] 32.6 mL/min/{1.73_m2} Abnormal >60 [facility] [place], [place] Glucose [Mass/Vol] 110 mg/dL High 70 - 100 mg/dL [place] Interpretation and review of laboratory results Abnormal [place] Potassium [Moles/Vol] 3.7 mmol/L 3.5 - 5.1 mmol/L [place] Protein [Mass/Vol] 6.7 g/dL 6.3 - 8.2 g/dL [place] Sodium [Moles/Vol] 133 mmol/L Low 135 - 145 mmol/L [place] Urea nitrogen [Mass/Vol] 29 mg/dL High 7 - 20 mg/dL [place] Test Performed by [facility], [address] MAGNESIUMon 09-24-2020 Magnesium [Mass/Vol] 1.7 mg/dL 1.6 - 2 .3 mg/dL [place] Test Performed by [employer] [facility], [address] POCT Glucoseon 09-24-2020 Glucose [Mass/Vol] 119 mg/dL High 70 - 100 mg/dL [place] Comment on above: Test performed by ucose meter. Results may be 10%-15% lower than serum/plasma values. (CLIA ID [id number]) Interpretation and review of laboratory results Abnormal [facility] [place] Test Performed by [employer] [facility], [address] Glucose [Mass/Vol] 187 mg/dL High 70 - 100 mg/dL [place] Comment on above: Test performed by PanX ucose meter. Results may be 10%-15% lower than serum/plasma values. (CLIA ID [id number]) Interpretation and review of laboratory results Abnormal [facility] [place] Test Performed by [facility], [address], [place], [place] [id number] [place] [address] Glucose [Mass/Vol] 237 mg/dL High 70 - 100 mg/dL [place] Comment on above: Test performed by gl ucose meter. Results may be 10%-15% lower than serum/plasma values. (CLIA ID [id number]) Interpretation and review of laboratory results Abnormal [place] Test Performed by [facility], [address] [place], [place] [address] [place] Glucose [Mass/Vol] 119 mg/dL High 70 - 100 mg/dL [place] Comment on above: Test performed by gl ucose meter. Results may be 10%-15% lower than serum/plasma values. (CLIA ID [id number]) Interpretation and review of laboratory results Abnormal [place] Test Performed by [facility], [address] [place], [place], [place] [address] [place] [address] Surgical Pathologyon 020 Sodium [Moles/Vol] SEE BELOW [place], [place] 1 [id number] [facility] PATHOLOGY AND LABORATORY MEDICINE [address] [place] [address] Fax - FINAL SURGICAL PATHOLOGY REPORT NAME: WILL JACINTO : 1965 54 Y F BILLING NO.: [id number] LOCATION: [id number] 1 PROCEDURE 09/19/2020 DATE: SURGEON: SERGIO [...] characteristics determined by the clinical laboratories of [facility]. They have not been cleared by [...] negativity on decalcified specimens. Case reviewed at [facility] [address] [place] [address]. DEPARTMENT OF PATHOLOGY AND LABORATORY MEDICINE [place], [place] [address] [place] Troponinon 09-24-2020 Troponin I.cardiac [Mass/Vol] ng/mL 0 - 0.034 ng/mL [place] Comment on above: . Test Performed by [facility], [address] [place], [place] [address] Chemistry specimen is slightly hemolyzed. Interpret results with caution. [place] XR ABDOMEN (KUB) (SINGLE AP VIEW)on 09-24-2020 [facility] Incoming Radiology Results From [facility] - 09/24/2020 9:24 AM EST Patient Name: WILL JACINTON: [id number] ---Diagnostic Radiology--- Exam Date/Time 09/24/2020 09:15:19 EST Exam CR Abdomen AP Ordering Physician DO HILL LISA Accession Number [id number] CPT4 Codes 69599 () Reason For Exam ileus Report Abdomen [...] lateral decubitus views. Report Dictated on Workstation: [id number] --- Final --- Dictating Physician: MD UNDERWOOD BRIAN Signed Date and Time: 09/24/2020 9:22 am Signed by: MD UNDERWOOD BRIAN Transcribed Date and Time: 09/24/2020 9:23 [place] Patient Name: WILL ALVARADO ---Diagnostic Radiology--- Exam Date/Time 09/24/2020 09:15:19 EST Exam CR Abdomen AP Ordering Physician DO HILL LISA Accession Number [id number] CPT4 Codes 57776 () Reason For Exam ileus Report Abdomen [...] lateral decubitus views. Report Dictated on Workstation: [id number] --- Final --- Dictating Physician: MD UNDERWOOD BRIAN Signed Date and Time: 09/24/2020 9:22 am Signed by: MD UNDERWOOD BRIAN Transcribed Date and Time: 09/24/2020 9:23 [place] CBC Auto Differentialon 11- Absolute Baso # 0.1 10*3/uL 0 - 0.2 10*3/uL [place] Absolute Neut # 8.9 10*3/uL High 1.8 - 7 10*3/uL [place] Basophils/100 WBC (Bld) 0.7 % 0 - 2 % [place] Eosinophils (Bld) [#/Vol] 0.1 10*3/uL 0 - 0.5 10*3/uL [place] Eosinophils/100 WBC (Bld) 1.1 % 1 - 6 % [place] Erythrocyte distribution width (RBC) [Ratio] 15.2 % High 11.5 - 14.5 % [place] Granulocytes/100 WBC (Bld) 73.0 % 40 - 80 % [place] Hematocrit (Bld) [Volume fraction] 35.4 % 35 - 47 % [place] Hemoglobin (Bld) [Mass/Vol] 11.8 g/dL 11.7 - 16 g/dL [place] Interpretation and review of laboratory results Abnormal [place] Lymphocytes (Bld) [#/Vol] 1.9 10*3/uL 1 - 4.3 10*3/uL [place] Lymphocytes/100 WBC (Bld) 15.7 % Low 20 - 40 % [place] MCH (RBC) [Entitic mass] 29.0 pg 26 - 34 pg [place] MCHC (RBC) [Mass/Vol] 33.4 % 32 - 36 % [place] MCV (RBC) [Entitic vol] 86.8 fL 79 - 98 fL [place] Monocytes (Bld) [#/Vol] 1.2 10*3/uL High 0 - 0.8 10*3/uL [place] Monocytes/100 WBC (Bld) 9.5 % 2 - 10 % [place] Platelet mean volume (Bld) [Entitic vol] 7.3 fL Low 7.4 - 10.4 fL [place] Platelets (Bld) [#/Vol] 454 10*3/uL High 140 - 440 10*3/uL [place] RBC (Bld) [#/Vol] 4.08 10*6/uL 3.8 - 5.2 10*6/uL [place] WBC (Bld) [#/Vol] 12.1 10*3/uL High 3.6 - 10.7 10*3/uL [place] Test Performed by [facility], [address], [place], [place] [address] [place] Comprehensive Metabolic Pane gigi 09-23-2020 Albumin [Mass/Vol] 3.7 g/dL 3.5 - 5 g/dL [place] ALP [Catalytic activity/Vol] 150 U/L High 38 - 126 U/L [place] ALT [Catalytic activity/Vol] 126 U/L High 0 - 34 U/L [place] Comment on above: The ALT test is perf ormed by an updated assay method. Please note that the reference intervals have been changed and are now sex specific. Anion gap [Moles/Vol] 10 mmol/L [place] AST [Catalytic activity/Vol] 42 U/L 15 - 46 U/L [place] Bilirubin Ql (U) 0.9 mg/dL 0.2 - 1.3 mg/dL [place] Calcium [Mass/Vol] 8.6 mg/dL 8.4 - 10. 4 mg/dL [place] Chloride [Moles/Vol] 93 mmol/L Low 98 - 10 7 mmol/L [place] CO2 [Moles/Vol] 24 mmol/L 22 - 30 mmol/L [place] Creatinine [Mass/Vol] 1.05 mg/dL 0.52 - 1.25 mg/dL [place] EGFR IF NonAfrican [place]ic 60.2 mL/min >60 [place] Comment on above: KDIGO guidelines pro [...] MDRD (S/P/Bld) [Vol rate/Area] 69.8 mL/min/{1.73_m2} >60 [place] Glucose [Mass/Vol] 242 mg/dL High 70 - 100 mg/dL [place] Interpretation and review of laboratory results Abnormal [place] Potassium [Moles/Vol] 3.9 mmol/L 3.5 - 5.1 mmol/L [place] Protein [Mass/Vol] 7.2 g/dL 6.3 - 8.2 g/dL [place] Sodium [Moles/Vol] 127 mmol/L Low 135 - 145 mmol/L [place] Urea nitrogen [Mass/Vol] 26 mg/dL High 7 - 20 mg/dL [place] Test Performed by [facility] [employer] [facility], [address] POC Glucose, Whole Bloodon 1 11-23-2019 Glucose [Mass/Vol] mg/dL High 70 - 100 mg/dL [place] Comment on above: Test performed by ucose meter. Results may be 10%-15% lower than serum/plasma values. (CLIA ID [id number]) Interpretation and review of laboratory results Abnormal [place] Sodium [Moles/Vol] see below [place] Comment on above: No confirmation rece ived. Test Performed by [facility], [address] [facility]- [place] POCT Glucoseon 09-23-2020 Glucose [Mass/Vol] 171 mg/dL High 70 - 100 mg/dL [facility] Comment on above: Test performed by gl ucose meter. Results may be 10%-15% lower than serum/plasma values. (CLIA ID [id number]) Interpretation and review of laboratory results Abnormal [facility] Test Performed by [employer] [facility], [address] [facility]- [place] Glucose [Mass/Vol] 278 mg/dL High 70 - 100 mg/dL [facility] Comment on above: Test performed by gl ucose meter. Results may be 10%-15% lower than serum/plasma values. (CLIA ID [id number]) Interpretation and review of laboratory results Abnormal [facility] Test Performed by [employer] [facility], [address] [employer] Glucose [Mass/Vol] 401 mg/dL High 70 - 100 mg/dL [facility] Comment on above: Test performed by gl ucose meter. Results may be 10%-15% lower than serum/plasma values. (CLIA ID [id number]) Interpretation and review of laboratory results Abnormal [facility] Test Performed by [employer], [address] [employer] Glucose [Mass/Vol] 348 mg/dL High 70 - 100 mg/dL [facility] Comment on above: Test performed by gl ucose meter. Results may be 10%-15% lower than serum/plasma values. (CLIA ID [id number]) Interpretation and review of laboratory results Abnormal [facility] Test Performed by [employer] [facility], [address] [employer] Glucose [Mass/Vol] 231 mg/dL High 70 - 100 mg/dL [facility] Comment on above: Test performed by gl ucose meter. Results may be 10%-15% lower than serum/plasma values. (CLIA ID [id number]) Interpretation and review of laboratory results Abnormal [facility] [place], [place] Test Performed by [facility], [address], [place], [place] [address] [place] XR ABDOMEN (KUB) (SINGLE AP VIEW)on 09-23-2020 [facility] Incoming Radiology Results From [facility] - 09/23/2020 11:02 AM EST Patient Name: WILL JACINTO ---Diagnostic Radiology--- Exam Date/Time 09/23/2020 10:26:17 EST Exam CR Abdomen AP Ordering Physician MD DAVID RICHARD H Accession Number [id number] CPT4 Codes 39630 () Reason For Exam ileus, improving Report [...] RISA Transcribed Date and Time: 09/23/2020 11:01 [facility] Patient Name: WILL ALVARADO ---Diagnostic Radiology--- Exam Date/Time 09/23/2020 10:26:17 EST Exam CR Abdomen AP Ordering Physician MD DAVID RICHARD H Accession Number [id number] CPT4 Codes 66142 () Reason For Exam ileus, improving Report [...] RISA Transcribed Date and Time: 09/23/2020 11:01 [place] CBC Auto Differentialon 09-08 Absolute Baso # 0.1 10*3/uL 0 - 0.2 10*3/uL [place] Absolute Neut # 6.8 10*3/uL 1.8 - 7 10*3/uL [place] Basophils/100 WBC (Bld) 0.9 % 0 - 2 % [place] Eosinophils (Bld) [#/Vol] 0.2 10*3/uL 0 - 0.5 10*3/uL [place] Eosinophils/100 WBC (Bld) 1.9 % 1 - 6 % [place] Erythrocyte distribution width (RBC) [Ratio] 14.9 % High 11.5 - 14.5 % [place] Granulocytes/100 WBC (Bld) 69.3 % 40 - 80 % [place] Hematocrit (Bld) [Volume fraction] 35.1 % 35 - 47 % [place] Hemoglobin (Bld) [Mass/Vol] 11.8 g/dL 11.7 - 16 g/dL [place] Interpretation and review of laboratory results Abnormal [place] Lymphocytes (Bld) [#/Vol] 1.8 10*3/uL 1 - 4.3 10*3/uL [place] Lymphocytes/100 WBC (Bld) 18.3 % Low 20 - 40 % [place] MCH (RBC) [Entitic mass] 29.0 pg 26 - 34 pg [place] MCHC (RBC) [Mass/Vol] 33.5 % 32 - 36 % [place] MCV (RBC) [Entitic vol] 86.4 fL 79 - 98 fL [place] Monocytes (Bld) [#/Vol] 0.9 10*3/uL High 0 - 0.8 10*3/uL [place] Monocytes/100 WBC (Bld) 9.6 % 2 - 10 % [place] Platelet mean volume (Bld) [Entitic vol] 7.3 fL Low 7.4 - 10.4 fL [place] Platelets (Bld) [#/Vol] 474 10*3/uL High 140 - 440 10*3/uL [place] RBC (Bld) [#/Vol] 4.07 10*6/uL 3.8 - 5.2 10*6/uL [place] WBC (Bld) [#/Vol] 9.7 10*3/uL 3.6 - 10.7 10*3/uL [place] Test Performed by [facility], [address], [place], [place] [address] [place] Comprehensive Metabolic Pane gigi 09-22-2020 Albumin [Mass/Vol] 3.7 g/dL 3.5 - 5 g/dL [place] ALP [Catalytic activity/Vol] 125 U/L 38 - 126 U/L [place] ALT [Catalytic activity/Vol] 137 U/L High 0 - 34 U/L [place] Comment on above: The ALT test is perf ormed by an updated assay method. Please note that the reference intervals have been changed and are now sex specific. Anion gap [Moles/Vol] 5 mmol/L [place] AST [Catalytic activity/Vol] 51 U/L High 15 - 46 U/L [place] Bilirubin Ql (U) 0.7 mg/dL 0.2 - 1.3 mg/dL [place] Calcium [Mass/Vol] 9.0 mg/dL 8.4 - 10. 4 mg/dL [place] Chloride [Moles/Vol] 94 mmol/L Low 98 - 10 7 mmol/L [place] CO2 [Moles/Vol] 29 mmol/L 22 - 30 mmol/L [place] Creatinine [Mass/Vol] 0.88 mg/dL 0.52 - 1.25 mg/dL [place] EGFR IF NonAfrican [place] 74.5 mL/min >60 [place] Comment on above: KDIGO guidelines pro [...] MDRD (S/P/Bld) [Vol rate/Area] 86.4 mL/min/{1.73_m2} >60 [facility] Glucose [Mass/Vol] 269 mg/dL High 70 - 100 mg/dL [facility] [employer] Interpretation and review of laboratory results Abnormal [facility] [employer] Potassium [Moles/Vol] 4.1 mmol/L 3.5 - 5.1 mmol/L [facility] [employer] Protein [Mass/Vol] 6.9 g/dL 6.3 - 8.2 g/dL [facility] Sodium [Moles/Vol] 129 mmol/L Low 135 - 145 mmol/L [facility] Urea nitrogen [Mass/Vol] 21 mg/dL High 7 - 20 mg/dL [facility]inK[facility] [employer] Test Performed by [facility], [address] [place], [place] [address] [facility] [employer] POCT Glucoseon 09-22-2020 Glucose [Mass/Vol] 363 mg/dL High 70 - 100 mg/dL [facility] [employer] Comment on above: Test performed by ucose meter. Results may be 10%-15% lower than serum/plasma values. (CLIA ID [id number]) Interpretation and review of laboratory results Abnormal [facility] Test Performed by [employer] [facility], [address] [place], [place] [address] [facility] [employer] Glucose [Mass/Vol] 355 mg/dL High 70 - 100 mg/dL [facility] [place] Comment on above: Test performed by gl ucose meter. Results may be 10%-15% lower than serum/plasma values. (CLIA ID [id number]) Interpretation and review of laboratory results Abnormal [facility] [place] Test Performed by [employer], [address] [place], [place] [address] [facility] [place] Glucose [Mass/Vol] 328 mg/dL High 70 - 100 mg/dL [facility] [place] Comment on above: Test performed by gl ucose meter. Results may be 10%-15% lower than serum/plasma values. (CLIA ID [id number]) Interpretation and review of laboratory results Abnormal [facility] Test Performed by [employer], [address], [place], [place] [address] [facility] Glucose [Mass/Vol] 277 mg/dL High 70 - 100 mg/dL [facility] [place] Comment on above: Test performed by gl ucose meter. Results may be 10%-15% lower than serum/plasma values. (CLIA ID [id number]) Interpretation and review of laboratory results Abnormal [facility] Test Performed by [employer], [address] [place], [place] [address] [facility] XR ABDOMEN (KUB) (SINGLE AP VIEW)on 09-22-2020 Patient Name: WILL ALVARADO ---Diagnostic Radiology--- Exam Date/Time 09/22/2020 07:41:53 EST Exam CR Abdomen AP Ordering Physician MD JOANN, KYLAH Accession Number [id number] CPT4 Codes 50576 () Reason For Exam ileus Report ABDOMEN: [...] RACHEL Transcribed Date and Time: 09/22/2020 8:32 [employer], [employer] Nati Jones Incoming Radiology Results From [facility] - 09/22/2020 8:33 AM EST Patient Name: WILL JACINTO ---Diagnostic Radiology--- Exam Date/Time 09/22/2020 07:41:53 EST Exam CR Abdomen AP Ordering Physician MD JOANN, KYLAH Garcia Accession Number [id number] CPT4 Codes 31508 () Reason For Exam ileus Report ABDOMEN: [...] RACHEL Transcribed Date and Time: 09/22/2020 8:32 [employer], [employer] GLUCOSEon 09-21-2020 Glucose [Mass/Vol] 461 mg/dL Critically high 70 - 1 00 mg/dL [facility] [employer] Interpretation and review of laboratory results Abnormal [employer], [employer] Test Performed by [facility], [address] [place], [place] [address] [facility] [employer] POCT Glucoseon 09-21-2020 Glucose [Mass/Vol] 446 mg/dL High 70 - 100 mg/dL [facility] [employer] Comment on above: Test performed by ucose meter. Results may be 10%-15% lower than serum/plasma values. (CLIA ID [id number]) Interpretation and review of laboratory results Abnormal [employer], [employer] Test Performed by [facility], [address], [place], [place] [address] [place] Glucose [Mass/Vol] 440 mg/dL High 70 - 100 mg/dL [place] Comment on above: Test performed by gl ucose meter. Results may be 10%-15% lower than serum/plasma values. (CLIA ID [id number]) Interpretation and review of laboratory results Abnormal [place] Test Performed by [facility], [address] [place], [place] [address] [place] Glucose [Mass/Vol] 138 mg/dL High 70 - 100 mg/dL [place] Comment on above: Test performed by gl ucose meter. Results may be 10%-15% lower than serum/plasma values. (CLIA ID [id number]) Interpretation and review of laboratory results Abnormal [place] Test Performed by [facility], [address] [place], [place] [address] [place] Basic Metabolic Panelon 11-1 Anion gap [Moles/Vol] 6 mmol/L [place] Calcium [Mass/Vol] 8.7 mg/dL 8.4 - 10. 4 mg/dL [place] Chloride [Moles/Vol] 101 mmol/L 98 - 10 7 mmol/L [place] CO2 [Moles/Vol] 27 mmol/L 22 - 30 mmol/L [place] Creatinine [Mass/Vol] 0.81 mg/dL 0.52 - 1.25 mg/dL [place] EGFR IF NonAfrican [place] 82.4 mL/min >60 [place] Comment on above: KDIGO guidelines pro [...] MDRD (S/P/Bld) [Vol rate/Area] mL/min/{1.73_m2} >60 mL/min [place] Glucose [Mass/Vol] 259 mg/dL High 70 - 100 mg/dL [place] Interpretation and review of laboratory results Abnormal [place] Potassium [Moles/Vol] 4.5 mmol/L 3.5 - 5.1 mmol/L [place] Sodium [Moles/Vol] 134 mmol/L Low 135 - 145 mmol/L [place] Urea nitrogen [Mass/Vol] 22 mg/dL High 7 - 20 mg/dL [place] Test Performed by [facility], [address] [place], [place] [id number] [place] [address] POCT Glucoseon 09-20-2020 Glucose [Mass/Vol] 129 mg/dL High 70 - 100 mg/dL [place] Comment on above: Test performed by gl ucose meter. Results may be 10%-15% lower than serum/plasma values. (CLIA ID [id number]) Interpretation and review of laboratory results Abnormal [facility] [place] Test Performed by [facility], [address] [place], [place] [id number] [place] [address] Glucose [Mass/Vol] 192 mg/dL High 70 - 100 mg/dL [place], [place] Comment on above: Test performed by gl ucose meter. Results may be 10%-15% lower than serum/plasma values. (CLIA ID [id number]) Interpretation and review of laboratory results Abnormal [facility] [place] Test Performed by [facility], [address] [place], [place] [address] [place] Glucose [Mass/Vol] 352 mg/dL High 70 - 100 mg/dL [place] Comment on above: Test performed by gl ucose meter. Results may be 10%-15% lower than serum/plasma values. (CLIA ID [id number]) Interpretation and review of laboratory results Abnormal [employer] Test Performed by [facility], [address], [place], [place] [address] [facility] [place] Glucose [Mass/Vol] 283 mg/dL High 70 - 100 mg/dL [facility] Comment on above: Test performed by gl ucose meter. Results may be 10%-15% lower than serum/plasma values. (CLIA ID [id number]) Interpretation and review of laboratory results Abnormal [employer] Test Performed by [facility], [address], [place], [place] [address] [facility] ABDOMEN (KUB) (SINGLE AP VIEW)on 09-20-2020 [facility] Incoming Radiology Results From [facility] - 09/20/2020 10:48 AM EST Patient Name: WILL JACINTO ---Diagnostic Radiology--- Exam Date/Time 09/20/2020 08:59:00 EST Exam CR Abdomen AP Ordering Physician DO HILL LISA Accession Number [id number] CPT4 Codes 55127 () Reason For Exam ileus Report EXAMINATION: [...] NELSON Transcribed Date and Time: 09/20/2020 10:48 [facility] Name: WILL ALVARADO ---Diagnostic Radiology--- Exam Date/Time 09/20/2020 08:59:00 EST Exam CR Abdomen AP Ordering Physician DO HILL LISA Accession Number [id number] CPT4 Codes 86043 () Reason For Exam ileus Report EXAMINATION: [...] NELSON Transcribed Date and Time: 09/20/2020 10:48 [place] CBC Auto Differentialon 09-08 Erythrocyte distribution width (RBC) [Ratio] 15.3 % High 11.5 - 14.5 % [place] Hematocrit (Bld) [Volume fraction] 32.5 % Low 35 - 47 % [place] Hemoglobin (Bld) [Mass/Vol] 10.6 g/dL Low 11.7 - 16 g/dL [place] Interpretation and review of laboratory results Abnormal [place] MCH (RBC) [Entitic mass] 29.0 pg 26 - 34 pg [place] MCHC (RBC) [Mass/Vol] 32.7 % 32 - 36 % [place] MCV (RBC) [Entitic vol] 88.7 fL 79 - 98 fL [place] Platelet mean volume (Bld) [Entitic vol] 7.3 fL Low 7.4 - 10.4 fL [place] Platelets (Bld) [#/Vol] 519 10*3/uL High 140 - 440 10*3/uL [place] RBC (Bld) [#/Vol] 3.67 10*6/uL Low 3.8 - 5.2 10*6/uL [place] WBC (Bld) [#/Vol] 8.5 10*3/uL 3.6 - 10.7 10*3/uL [place] Test Performed by [facility], [address], [place], [place] [address] [place] Comprehensive Metabolic Pane gigi 09-19-2020 Albumin [Mass/Vol] 3.6 g/dL 3.5 - 5 g/dL [place] ALP [Catalytic activity/Vol] 128 U/L High 38 - 126 U/L [place] ALT [Catalytic activity/Vol] 125 U/L High 0 - 34 U/L [place] Comment on above: The ALT test is perf ormed by an updated assay method. Please note that the reference intervals have been changed and are now sex specific. Anion gap [Moles/Vol] 7 mmol/L [place], [place] AST [Catalytic activity/Vol] 68 U/L High 15 - 46 U/L [place] Bilirubin Ql (U) 0.6 mg/dL 0.2 - 1.3 mg/dL [place] Calcium [Mass/Vol] 8.9 mg/dL 8.4 - 10. 4 mg/dL [place] Chloride [Moles/Vol] 99 mmol/L 98 - 10 7 mmol/L [place] CO2 [Moles/Vol] 25 mmol/L 22 - 30 mmol/L [place] Creatinine [Mass/Vol] 0.88 mg/dL 0.52 - 1.25 mg/dL [place] EGFR IF NonAfrican Green[place]ic 74.5 mL/min >60 [place] Comment on above: KDIGO guidelines pro [...] MDRD (S/P/Bld) [Vol rate/Area] 86.4 mL/min/{1.73_m2} >60 [facility] [place], [place] Glucose [Mass/Vol] 395 mg/dL High 70 - 100 mg/dL [facility] [place] Interpretation and review of laboratory results Abnormal [place] Potassium [Moles/Vol] 5.8 mmol/L High 3.5 - 5.1 mmol/L [facility] [place] Protein [Mass/Vol] 7.2 g/dL 6.3 - 8.2 g/dL [facility] [place] Sodium [Moles/Vol] 131 mmol/L Low 135 - 145 mmol/L [facility] [place] Urea nitrogen [Mass/Vol] 29 mg/dL High 7 - 20 mg/dL [place] Test Performed by [facility], [address], [place], [place] [address] [facility] [place], [place] Manual Differentialon 2019 Absolute Baso # 0.0 10*3/uL 0 - 0.2 10*3/uL [facility] [place] Absolute Eos # 0.1 10*3/uL 0 - 0.5 10*3/uL [facility] [place] Absolute Lymph # 0.9 10*3/uL Low 1.1 - 4.5 10*3/uL [facility] [place] Absolute Mohave # 0.6 10*3/uL 0.2 - 1.1 10*3/uL [facility] [place] Absolute Neut # 6.5 10*3/uL 2.2 - 8.2 10*3/uL [facility] [place] Anisocytosis Ql (Bld) [facility] [place] Bands 1 % 0 - 3 % [facility] Basophils 0 % 0 - 2 % [facility] Eosinophils 1 % 1 - 6 % [facility] Hypochromia Slight [facility] [place] Interpretation and review of laboratory results Abnormal [facility] [place] Lymphocytes 11 % Low 20 - 40 % [facility] [place] Metamyelocytes 4 % Abnormal <1 [facility] [place] Monocytes 7 % 2 - 10 % [facility] [place] Polychromasia Slight [facility] [place] RBC morphology finding Nom (Bld) ABNORMAL [facility] Seg Neutrophils 76 % 40 - 80 % [facility] [place] TOTAL CELLS COUNTED 100 [facility] Test Performed by [facility], [address], [place], [place] [address] [facility] [place] Otheron 09-19-2020 Interpretation and review of laboratory results Abnormal [facility] [employer] Test Performed by [facility], [address], [place], [place] [address] [facility] [place] POCT Glucoseon 09-19-2020 Glucose [Mass/Vol] 286 mg/dL High 70 - 100 mg/dL [facility] [place] Comment on above: Test performed by gl ucose meter. Results may be 10%-15% lower than serum/plasma values. (CLIA ID [id number]) Interpretation and review of laboratory results Abnormal [facility] [employer] Test Performed by [employer] [facility], [address], [place], [place] [address] [facility] [place], [place] Glucose [Mass/Vol] 395 mg/dL High 70 - 100 mg/dL [facility] [place] Comment on above: Test performed by gl ucose meter. Results may be 10%-15% lower than serum/plasma values. (CLIA ID [id number]) Interpretation and review of laboratory results Abnormal [facility] [employer] Test Performed by [employer] [facility], [address], [place], [place] [address] [facility] Glucose [Mass/Vol] 406 mg/dL High 70 - 100 mg/dL [facility] [place] Comment on above: Test performed by gl ucose meter. Results may be 10%-15% lower than serum/plasma values. (CLIA ID [id number]) Glucose [Mass/Vol] 412 mg/dL High 70 - 100 mg/dL [facility] [place] Comment on above: Test performed by gl ucose meter. Results may be 10%-15% lower than serum/plasma values. (CLIA ID [id number]) XR ABDOMEN (KUB) (SINGLE AP VIEW)on 09-19-2020 [facility] Incoming Radiology Results From [facility] - 09/19/2020 1:20 PM EST Patient Name: WILL JACINTO ---Diagnostic Radiology--- Exam Date/Time 09/19/2020 12:13:39 EST Exam CR Abdomen AP Ordering Physician MD DAVID RICHARD H Accession Number [id number] CPT4 Codes 63627 () Reason For Exam ileus fu Report [...] KRIKOR Transcribed Date and Time: 09/19/2020 1:20 [place] Patient Name: WILL ALVARADO ---Diagnostic Radiology--- Exam Date/Time 09/19/2020 12:13:39 EST Exam CR Abdomen AP Ordering Physician MD DAVID RICHARD H Accession Number [id number] CPT4 Codes 85338 () Reason For Exam ileus fu Report [...] KRIKOR Transcribed Date and Time: 09/19/2020 1:20 [place] Basic Metabolic Panelon 09-08 Anion gap [Moles/Vol] 10 mmol/L [place] Calcium [Mass/Vol] 9.0 mg/dL 8.4 - 10. 4 mg/dL [place] Chloride [Moles/Vol] 99 mmol/L 98 - 10 7 mmol/L [place] CO2 [Moles/Vol] 25 mmol/L 22 - 30 mmol/L [place] Creatinine [Mass/Vol] 0.99 mg/dL 0.52 - 1.25 mg/dL [place] EGFR IF NonAfrican [place]ic 64.6 mL/min >60 [place] Comment on above: KDIGO guidelines pro [...] MDRD (S/P/Bld) [Vol rate/Area] 74.9 mL/min/{1.73_m2} >60 [place] Glucose [Mass/Vol] 310 mg/dL High 70 - 100 mg/dL [place] Interpretation and review of laboratory results Abnormal [place] Potassium [Moles/Vol] 5.3 mmol/L High 3.5 - 5.1 mmol/L [place] Sodium [Moles/Vol] 134 mmol/L Low 135 - 145 mmol/L [place] Urea nitrogen [Mass/Vol] 35 mg/dL High 7 - 20 mg/dL [place] Test Performed by [facility], [address], [place], [place] [address] [place] Comprehensive Metabolic Pane l w/ Reflex to MGon 09-18-2020 Albumin [Mass/Vol] 3.9 g/dL 3.5 - 5 g/dL [place] ALP [Catalytic activity/Vol] 133 U/L High 38 - 126 U/L [place] ALT [Catalytic activity/Vol] 104 U/L High 0 - 34 U/L [place] Comment on above: The ALT test is perf ormed by an updated assay method. Please note that the reference intervals have been changed and are now sex specific. Anion gap [Moles/Vol] 8 mmol/L [place] AST [Catalytic activity/Vol] 74 U/L High 15 - 46 U/L [place] Bilirubin Ql (U) 0.8 mg/dL 0.2 - 1.3 mg/dL [place] Calcium [Mass/Vol] 9.2 mg/dL 8.4 - 10. 4 mg/dL [place] Chloride [Moles/Vol] 104 mmol/L 98 - 10 7 mmol/L [place] CO2 [Moles/Vol] 26 mmol/L 22 - 30 mmol/L [place] Creatinine [Mass/Vol] 0.97 mg/dL 0.52 - 1.25 mg/dL [place] EGFR IF NonAfrican [place]ic 66.3 mL/min >60 [place] Comment on above: KDIGO guidelines pro [...] MDRD (S/P/Bld) [Vol rate/Area] 76.8 mL/min/{1.73_m2} >60 [facility] [place] Glucose [Mass/Vol] 175 mg/dL High 70 - 100 mg/dL [facility] [place] Interpretation and review of laboratory results Abnormal [facility] [place], [employer] Potassium [Moles/Vol] 5.5 mmol/L High 3.5 - 5.1 mmol/L [facility] [place], [place] Protein [Mass/Vol] 7.8 g/dL 6.3 - 8.2 g/dL [facility], [place] Sodium [Moles/Vol] 138 mmol/L 135 - 145 mmol/L [facility] [place] Urea nitrogen [Mass/Vol] 40 mg/dL High 7 - 20 mg/dL [facility] [place], [place] Test Performed by [facility], [address], [place] [id number] [place] [address] [place] EKG 12 Lead - Chest Painon 1 11-18-2019 [facility], [facility] Incoming Cardiology Results From [facility] - 09/18/2020 4:47 PM EST [facility] Test Date: 2020-09-17 Pat Name: Will Jacinto Department: 01 Room: 268 Gender: F 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: 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 : 1965 Requested By: ART ZENG Order Number: [id number] [place] MD: Justin Ramirez Measurements Intervals Curlew Rate: 82 P: 37 CA: 172 QRS: -39 QRSD: 110 T: 26 QT: 376 QTc: 439 Interpretive Statements SINUS RHYTHM NONSPECIFIC IVCD WITH LAD LEFT VENTRICULAR HYPERTROPHY Compared to ECG 06/24/2018 21:26:56 Intraventricular conduction delay now present Electronically Signed On 09-18-2020 16:46:18 EST by Justin Ramirez [employer] [facility] Test Date: 2020-09-17 Pat Name: Will Jacinto Department: 01 Room: [facility] Gender: F 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: 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 : 1965 Requested By: ART ZENG Order Number: [id number] [place] MD: Justin Ramirez Measurements Intervals [place]lew Rate: 82 P: 37 CA: 172 QRS: -39 QRSD: 110 T: 26 QT: 376 QTc: 439 Interpretive Statements SINUS RHYTHM NONSPECIFIC IVCD WITH LAD LEFT VENTRICULAR HYPERTROPHY Compared to ECG 06/24/2018 21:26:56 Intraventricular conduction delay now present Electronically Signed On 09-18-2020 16:46:18 EST by Justin Ramirez [employer] POCT Glucoseon 09-18-2020 Glucose [Mass/Vol] 378 mg/dL High 70 - 100 mg/dL [facility] [place] Comment on above: Test performed by gl ucose meter. Results may be 10%-15% lower than serum/plasma values. (CLIA ID [id number]) Interpretation and review of laboratory results Abnormal [employer] Test Performed by [employer], [address] [place], [place] [address] [place], [place] [address] Glucose [Mass/Vol] 349 mg/dL High 70 - 100 mg/dL [facility] Comment on above: Test performed by gl ucose meter. Results may be 10%-15% lower than serum/plasma values. (CLIA ID [id number]) Interpretation and review of laboratory results Abnormal [employer] Test Performed by [employer], [address] [place], [place] [address] [employer] Glucose [Mass/Vol] 341 mg/dL High 70 - 100 mg/dL [facility] [employer] Comment on above: Test performed by gl ucose meter. Results may be 10%-15% lower than serum/plasma values. (CLIA ID [id number]) Interpretation and review of laboratory results Abnormal [facility] [place] Test Performed by [employer], [address], [place], [place] [address] [facility] [place] Glucose [Mass/Vol] 312 mg/dL High 70 - 100 mg/dL [facility] [place] Comment on above: Test performed by gl ucose meter. Results may be 10%-15% lower than serum/plasma values. (CLIA ID [id number]) Interpretation and review of laboratory results Abnormal [facility] [place] Test Performed by [employer], [address], [place], [place] [address] [facility] Glucose [Mass/Vol] 235 mg/dL High 70 - 100 mg/dL [employer] Comment on above: Test performed by gl ucose meter. Results may be 10%-15% lower than serum/plasma values. (CLIA ID [id number]) Interpretation and review of laboratory results Abnormal [facility] [place] Test Performed by [employer], [address], [place], [place] [address] [facility] XR ABDOMEN (KUB) (SINGLE AP VIEW)on 09-18-2020 [facility] Incoming Radiology Results From [facility] - 09/18/2020 10:26 AM EST Patient Name: WILL JACINTO ---Diagnostic Radiology--- Exam Date/Time 09/18/2020 09:25:00 EST Exam CR Abdomen AP Ordering Physician DO HILL LISA Accession Number [id number] CPT4 Codes 75408 () Reason For Exam ileus Report Clinical [...] HARLAN Transcribed Date and Time: 09/18/2020 10:25 [place] Patient Name: WILL ALVARADO ---Diagnostic Radiology--- Exam Date/Time 09/18/2020 09:25:00 EST Exam CR Abdomen AP Ordering Physician DO HILL LISA Accession Number [id number] CPT4 Codes 86180 () Reason For Exam ileus Report Clinical [...] HARLAN Transcribed Date and Time: 09/18/2020 10:25 [place] Abdomen Pelvis W Contrast on 09-17-2020 [facility] Incoming Radiology Results From [facility] - 09/17/2020 10:32 PM EST Patient Name: WILL JACINTO ---CT--- Exam Date/Time 09/17/2020 22:15:[address] Abdomen/Pelvis w/ IV Contrast (IV Onl Ordering Physician [id number] -ART ZENG Accession Number [id number] CPT4 Codes 28774 (CT Abdomen/Pelvis w/ IV Contrast (IV Onl), Q9967 (CT ISOVUE 370MG/ML&[id number]&ML& 1) Reason For Exam abd pain/tenderness Report [...] and Time: 09/17/2020 10:30 pm Signed by: WOHLWEND, MD, JAVY R Transcribed Date and Time: 09/17/2020 10:31 [place] Patient Name: WILL ALVARADO ---CT--- Exam Date/Time 09/17/2020 22:15:[address] Abdomen/Pelvis w/ IV Contrast (IV Onl Ordering Physician ART OWEN Accession Number [id number] CPT4 Codes 91080 (CT Abdomen/Pelvis w/ IV Contrast (IV Onl), Q9967 (CT ISOVUE 370MG/ML&[id number]&ML& 1) Reason For Exam abd pain/tenderness Report [...] R Transcribed Date and Time: 09/17/2020 10:31 [place] Comprehensive Metabolic Pane gigi 09-17-2020 Albumin [Mass/Vol] 4.2 g/dL 3.5 - 5 g/dL [place] ALP [Catalytic activity/Vol] 153 U/L High 38 - 126 U/L [place] ALT [Catalytic activity/Vol] 104 U/L High 0 - 34 U/L [place] Comment on above: The ALT test is perf ormed by an updated assay method. Please note that the reference intervals have been changed and are now sex specific. Anion gap [Moles/Vol] 6 mmol/L [place] AST [Catalytic activity/Vol] 69 U/L High 15 - 46 U/L [place] Bilirubin Ql (U) 0.5 mg/dL 0.2 - 1.3 mg/dL [place] Calcium [Mass/Vol] 10.3 mg/dL 8.4 - 10. 4 mg/dL [place] Chloride [Moles/Vol] 101 mmol/L 98 - 10 7 mmol/L [place] CO2 [Moles/Vol] 29 mmol/L 22 - 30 mmol/L [place] Creatinine [Mass/Vol] 1.09 mg/dL 0.52 - 1.25 mg/dL [place] EGFR IF NonAfrican [place]ic 57.5 mL/min Abnormal >60 [place] Comment on above: KDIGO guidelines pro [...] MDRD (S/P/Bld) [Vol rate/Area] 66.7 mL/min/{1.73_m2} >60 [place] Glucose [Mass/Vol] 122 mg/dL High 70 - 100 mg/dL [place] Interpretation and review of laboratory results Abnormal [place] Potassium [Moles/Vol] 5.7 mmol/L High 3.5 - 5.1 mmol/L [place] Protein [Mass/Vol] 7.9 g/dL 6.3 - 8.2 g/dL [place] Sodium [Moles/Vol] 137 mmol/L 135 - 145 mmol/L [place] Urea nitrogen [Mass/Vol] 48 mg/dL High 7 - 20 mg/dL [place] Hemogram (CBC) w/Auto Diffon 09-17-2020 Erythrocyte distribution width (RBC) [Ratio] 14.9 % High 11.5 - 14.5 % [place] Hematocrit (Bld) [Volume fraction] 33.9 % Low 35 - 47 % [place] Hemoglobin (Bld) [Mass/Vol] 11.4 g/dL Low 11.7 - 16 g/dL [place] Interpretation and review of laboratory results Abnormal [place] MCH (RBC) [Entitic mass] 29.6 pg 26 - 34 pg [place] MCHC (RBC) [Mass/Vol] 33.7 % 32 - 36 % [place] MCV (RBC) [Entitic vol] 87.8 fL 79 - 98 fL [place] Platelet mean volume (Bld) [Entitic vol] 7.5 fL 7.4 - 10.4 fL [place] Platelets (Bld) [#/Vol] 544 10*3/uL High 140 - 440 10*3/uL [facility] [place] RBC (Bld) [#/Vol] 3.87 10*6/uL 3.8 - 5.2 10*6/uL [facility] [place] WBC (Bld) [#/Vol] 11.0 10*3/uL High 3.6 - 10.7 10*3/uL [facility] [place] Test Performed by [facility], [address], [place], [place] [address] [facility] [place] Lipaseon 09-17-2020 Lipase [Catalytic activity/Vol] 39 U/L 23 - 300 U/L [facility] [place] Manual Differentialon 2019 Absolute Baso # 0.0 10*3/uL 0 - 0.2 10*3/uL [facility] [place] Absolute Eos # 0.0 10*3/uL 0 - 0.5 10*3/uL [facility] [place] Absolute Lymph # 0.8 10*3/uL Low 1.1 - 4.5 10*3/uL [facility] [place] Absolute Mohave # 0.8 10*3/uL 0.2 - 1.1 10*3/uL [facility] [place] Absolute Neut # 9.4 10*3/uL High 2.2 - 8.2 10*3/uL [facility] [place] Bands 1 % 0 - 3 % [facility] [place] Basophils 0 % 0 - 2 % [facility] [place] Eosinophils 0 % Low 1 - 6 % [facility] [place] Interpretation and review of laboratory results Abnormal [facility] [place] Lymphocytes 7 % Low 20 - 40 % [facility] [place] Monocytes 7 % 2 - 10 % [facility] [place] Myelocytes 1 % Abnormal <1 [facility] [place] Polychromasia Slight [facility] [place] RBC morphology finding Nom (Bld) ABNORMAL [facility] [place] Seg Neutrophils 84 % High 40 - 80 % [facility] [place] TOTAL CELLS COUNTED 100 [facility] [place] Test Performed by [facility], [address], [place], [place] [address] [facility] Otheron 09-17-2020 Test Performed by [facility], [address] POCT Glucoseon 09-17-2020 Glucose [Mass/Vol] 124 mg/dL High 70 - 100 mg/dL [place] Comment on above: Test performed by ucose meter. Results may be 10%-15% lower than serum/plasma values. (CLIA ID [id number]) Interpretation and review of laboratory results Abnormal [place] Test Performed by [facility], [address] [place], [address] Troponin x1on 09-17-2020 Troponin I.cardiac [Mass/Vol] ng/mL 0 - 0.034 ng/mL [place] Comment on above: . Test Performed by [facility], [address], [address] Urinalysison 09-17-2020 Appearance (U) Clear Clear [place] Comment on above: . Bilirubin Urine Negative Negative mg/dL [place] Comment on above: . Color (U) Yellow Lt. Yellow NA [place] Comment on above: . Glucose, Ur Normal Normal (<70) mg/dL [place] Comment on above: . Interpretation and review of laboratory results Abnormal [place] Ketones Ql (U) Trace Abnormal Negative mg/dL [place] Comment on above: . LEUKOCYTES, UA 25 Abnormal Negative Kat/uL [place] Comment on above: . Mucous Threads Few Negative /[LPF] [place] Comment on above: . Nitrite, Urine Negative Negative NA [place] Comment on above: . Occult Blood,Urine 1.0 mg/dL Abnormal Negative [place] Comment on above: . pH (U) 5.5 [pH] [place] Comment on above: . Protein (U) [Mass/Vol] 10 mg/dL Abnormal Negative [place], [place] Comment on above: . RBC (U) [#/Vol] 51-100 Abnormal 0 - 2 /[HPF] [place] Comment on above: . Specific [place], Urine 1.021 [place] Comment on above: . Squam Epithel, UA 0-2 3 - 5 /[HPF] [place] Comment on above: . Urobilinogen, Urine Normal Normal (0-1) mg/dL [place] Comment on above: . WBC, UA 0-2 0 - 5 /[HPF] [place] Comment on above: . Test Performed by [facility], [address], [place], [place] [address] [place] Basic Metabolic Panelon 02-2 Calcium [Mass/Vol] 9.9 mg/dL Normal 8.4-10.4 [facility] Comment on above: Performed By: #### B GLU #### [facility] [address], [place] Glucose [Mass/Vol] 404 mg/dL High 70-100 [facility] Comment on above: Performed By: #### B GLU #### [facility] [address], [place] Anion gap [Moles/Vol] 13 Normal [facility] Comment on above: Performed By: #### B GLU #### [facility] [address], [place] CO2 [Moles/Vol] 28 mmol/L Normal 22-30 [facility] Comment on above: Performed By: #### B GLU #### [facility] [address], [place] Creatinine [Mass/Vol] 0.95 mg/dL Normal 0.52-1.25 [facility] Comment on above: Performed By: #### B GLU #### [facility] [address], [place] GFR/1.73 sq M predicted among blacks MDRD (S/P/Bld) [Vol rate/Area] mL/min/{1.73_m2} Normal >60 [facility] Comment on above: Performed By: #### B GLU #### [facility] [address], [place] GFR/1.73 sq M predicted among non-blacks MDRD (S/P/Bld) [Vol rate/Area] mL/min/{1.73_m2} Normal >60 [facility] Comment on above: Result Comment: Sour ce- MDRD equation with creatinine calibration to IDMS(NKDEP) eGFR not recommended for drug dose adjustment Performed By: #### B GLU #### [facility] [address], [place] Urea nitrogen [Mass/Vol] 23 mg/dL High 7-20 [facility] Comment on above: Performed By: #### B GLU #### [facility] [address], [place] Chloride [Moles/Vol] 94 mmol/L Low 98-107 [facility] Comment on above: Performed By: #### B GLU #### [facility] [address], [place] Potassium [Moles/Vol] 4.8 mmol/L Normal 3.5-5.1 [facility] Comment on above: Performed By: #### B GLU #### [facility] [address], [place] Sodium [Moles/Vol] 135 mmol/L Normal 135-145 [facility] Comment on above: Performed By: #### B GLU #### [facility] [address], [place] Basic Metabolic Panel w/ Ref kaye to MGon 01-02-2020 Anion gap [Moles/Vol] 13 mmol/L [facility], [place] Calcium [Mass/Vol] 9.9 mg/dL 8.4 - 10. 4 mg/dL [place] Chloride [Moles/Vol] 94 mmol/L Low 98 - 10 7 mmol/L [place] CO2 [Moles/Vol] 28 mmol/L 22 - 30 mmol/L [place] Creatinine [Mass/Vol] 0.95 mg/dL 0.52 - 1.25 mg/dL [place] EGFR IF NonAfrican [place]ic >60.0 >60 mL/min [place] Comment on above: Source- MDRD equatio n with creatinine calibration to IDMS(NKDEP) eGFR not recommended for drug dose adjustment GFR/1.73 sq M predicted among blacks MDRD (S/P/Bld) [Vol rate/Area] mL/min/{1.73_m2} >60 mL/min [place] Glucose [Mass/Vol] 404 mg/dL High 70 - 100 mg/dL [place] Interpretation and review of laboratory results Abnormal [place] Potassium [Moles/Vol] 4.8 mmol/L 3.5 - 5.1 mmol/L [place] Sodium [Moles/Vol] 135 mmol/L 135 - 145 mmol/L [place] Urea nitrogen [Mass/Vol] 23 mg/dL High 7 - 20 mg/dL [place] Test Performed by [facility], [address] [place] [address] [place] Hemoglobin AND Hematocriton 01-02-2020 Hematocrit (Bld) [Volume fraction] 40.5 % Normal 35.0-47.0 [facility] Comment on above: Performed By: #### B GLU #### [address] [address] [place] [address] Hemoglobin (Bld) [Mass/Vol] 13.5 g/dL Normal 11.7-16.0 [facility] Comment on above: Performed By: #### B GLU #### [address] [address] [place] [address] Hemoglobin and Hematocrit, B loodon 01-02-2020 Hematocrit (Bld) [Volume fraction] 40.5 % 35 - 47 % [place] Hemoglobin (Bld) [Mass/Vol] 13.5 g/dL 11.7 - 16 g/dL [place] Test Performed by [facility], [address] [place] [address] [place] Add On Lab Teston 06-27-2019 Sodium [Moles/Vol] Accepted [place] Comment on above: Specimen available & acceptable for analysis. Test Performed by [facility], [address], [place], [place] [address] [place] C-Reactive Proteinon 019 CRP [Mass/Vol] 45.5 mg/L High 0 - 6 mg/L [place] Comment on above: . Interpretation and review of laboratory results Abnormal [place] Test Performed by [facility], [address], [place], [place] [address] [place] Sedimentation Rateon 019 Interpretation and review of laboratory results Abnormal [place] Sed Rate 130 mm/h High 0 - 20 mm/h [place] Test Performed by [facility], [address], [place], [place] [address] [place] Comprehensive Metabolic Pane gigi 06-26-2019 Albumin [Mass/Vol] 3.6 g/dL 3.5 - 5 g/dL [place] ALP [Catalytic activity/Vol] 165 U/L High 38 - 126 U/L [place] ALT [Catalytic activity/Vol] 37 U/L 13 - 69 U/L [place] Anion gap [Moles/Vol] 9 mmol/L [place] AST [Catalytic activity/Vol] 21 U/L 15 - 46 U/L [place] Bilirubin Ql (U) 0.5 mg/dL 0.2 - 1.3 mg/dL [place] Calcium [Mass/Vol] 8.8 mg/dL 8.4 - 10. 4 mg/dL [place] Chloride [Moles/Vol] 102 mmol/L 98 - 10 7 mmol/L [place] CO2 [Moles/Vol] 26 mmol/L 22 - 30 mmol/L [place] Creatinine [Mass/Vol] 1.06 mg/dL 0.52 - 1.25 mg/dL [place] EGFR IF NonAfrican [place]ic 54.3 mL/min >60 [place] Comment on above: Source- MDRD equatio n with creatinine calibration to IDMS(NKDEP) eGFR not recommended for drug dose adjustment GFR/1.73 sq M predicted among blacks MDRD (S/P/Bld) [Vol rate/Area] mL/min/{1.73_m2} >60 mL/min [place] Glucose [Mass/Vol] 156 mg/dL High 70 - 100 mg/dL [place] Interpretation and review of laboratory results Abnormal [place] Potassium [Moles/Vol] 4.5 mmol/L 3.5 - 5.1 mmol/L [place] Protein [Mass/Vol] 6.9 g/dL 6.3 - 8.2 g/dL [place] Sodium [Moles/Vol] 137 mmol/L 135 - 145 mmol/L [place] Urea nitrogen [Mass/Vol] 28 mg/dL High 7 - 20 mg/dL [place] Test Performed by [facility], [address], [place], [place] [address] [place] Hemogram (CBC) w/Auto Diffon 06-26-2019 Absolute Baso # 0.1 10*3/uL 0 - 0.2 10*3/uL [place] Absolute Neut # 5.3 10*3/uL 1.8 - 7 10*3/uL [place] Basophils/100 WBC (Bld) 0.7 % 0 - 2 % [place] Eosinophils (Bld) [#/Vol] 0.2 10*3/uL 0 - 0.5 10*3/uL [place] Eosinophils/100 WBC (Bld) 2.0 % 1 - 6 % [place] Erythrocyte distribution width (RBC) [Ratio] 21.5 % High 11.5 - 14.5 % [place] Granulocytes/100 WBC (Bld) 65.6 % 40 - 80 % [place] Hematocrit (Bld) [Volume fraction] 22.8 % Low 35 - 47 % [place] Hemoglobin (Bld) [Mass/Vol] 7.3 g/dL Low 11.7 - 16 g/dL [place] Interpretation and review of laboratory results Abnormal [place] Lymphocytes (Bld) [#/Vol] 1.8 10*3/uL 1 - 4.3 10*3/uL [place] Lymphocytes/100 WBC (Bld) 21.6 % 20 - 40 % [place] MCH (RBC) [Entitic mass] 23.8 pg Low 26 - 34 pg [place] MCHC (RBC) [Mass/Vol] 32.0 % 32 - 36 % [place] MCV (RBC) [Entitic vol] 74.3 fL Low 79 - 98 fL [place] Monocytes (Bld) [#/Vol] 0.8 10*3/uL 0 - 0.8 10*3/uL [place] Monocytes/100 WBC (Bld) 10.1 % High 2 - 10 % [place] Platelet mean volume (Bld) [Entitic vol] 6.7 fL Low 7.4 - 10.4 fL [place] Platelets (Bld) [#/Vol] 540 10*3/uL High 140 - 440 10*3/uL [place] RBC (Bld) [#/Vol] 3.07 10*6/uL Low 3.8 - 5.2 10*6/uL [place] WBC (Bld) [#/Vol] 8.1 10*3/uL 3.6 - 10.7 10*3/uL [place] Test Performed by [facility], [address] [place], [place] [id number] [place] [address] Lactic Acid, Plasmaon 2018 Lactate [Moles/Vol] 1.7 mmol/L 0.7 - 2 mmol/L [place] Test Performed by [facility], [address] Metabolic Panelon 06-26-2019 Sodium [Moles/Vol] Slight [place] Otheron 06-26-2019 Test Performed by [facility], [address] [place], [place] [id number] [place] [address] RBC MORPHOLOGYon 06-26-2019 Anisocytosis Ql (Bld) Slight [place], [place] Basophilic stippling LM Ql (Bld) Slight [place] RBC morphology finding Nom (Bld) ABNORMAL [place] Sodium [Moles/Vol] Moderate [facility] [place], [place] TYPE AND SCREENon 06-26-2019 Sodium [Moles/Vol] Positive [facility] [place], [place] Comment on above: Test Performed by [facility], [address], [place], [place] [address] Sodium [Moles/Vol] Negative [facility] [place], [place] Comment on above: Test Performed by [facility], [address] [place], [place] [address] Sodium [Moles/Vol] O [facility] [place], [place] XR FEMUR RIGHT (MIN 2 VIEWS) on 06-26-2019 Patient Name: WILL ALVARADO ---Diagnostic Radiology--- Exam Date/Time 06/26/2019 22:31:46 EDT Exam CR Femur 2+ Views Right n Ordering Physician KELLEY ELLIOTT TAYLOR Accession Number [id number] CPT4 Codes 99379 () Reason For Exam right AKA wound drainage, swelling, erythema and warmth Report RIGHT FEMUR TWO VIEWS CLINICAL INDICATION: right AKA wound drainage, swelling, erythema and warmth TECHNIQUE: Two views of the right femur. COMPARISON: 06/14/2019 FINDINGS: Status post recent jgahy-lls-bqvm amputation. Overlying soft tissue swelling and skin boo. No obvious acute bone destruction. IMPRESSION: 1. Soft tissue swelling and skin boo overlie the operative site. No obvious bone destruction. Report Dictated on --- Final --- Dictating Physician: MD UGALDE JOHN R Signed Date and Time: 06/26/2019 10:34 pm Signed by: MD UGALDE JOHN R Transcribed Date and Time: 06/26/2019 10:35 [facility] [place], [place], [place] Incoming Radiology Results From [facility] - 06/26/2019 10:36 PM EDT Patient Name: WILL JACINTO ---Diagnostic Radiology--- Exam Date/Time 06/26/2019 22:31:46 EDT Exam CR Femur 2+ Views Right n Ordering Physician KELLEY ELLIOTT TAYLOR Accession Number [id number] CPT4 Codes 17320 () Reason For Exam right AKA wound drainage, swelling, erythema and warmth Report RIGHT FEMUR TWO VIEWS CLINICAL INDICATION: right AKA wound drainage, swelling, erythema and warmth TECHNIQUE: Two views of the right femur. COMPARISON: 06/14/2019 FINDINGS: Status post recent vumlh-sak-qfgm amputation. Overlying soft tissue swelling and skin boo. No obvious acute bone destruction. IMPRESSION: 1. Soft tissue swelling and skin boo overlie the operative site. No obvious bone destruction. Report Dictated on --- Final --- Dictating Physician: MD TRAM, JAVY Askew Signed Date and Time: 06/26/2019 10:34 pm Signed by: MD UGALDE JOHN R Transcribed Date and Time: 06/26/2019 10:35 [place] Comprehensive Metabolic Pane l w/ Reflex to MGon 06-20-2019 Albumin [Mass/Vol] 3.4 g/dL Low 3.5 - 5 g/dL [place] ALP [Catalytic activity/Vol] 124 U/L 38 - 126 U/L [place] ALT [Catalytic activity/Vol] 57 U/L 13 - 69 U/L [place] Anion gap [Moles/Vol] 7 mmol/L [place] AST [Catalytic activity/Vol] 62 U/L High 15 - 46 U/L [place] Bilirubin Ql (U) 0.4 mg/dL 0.2 - 1.3 mg/dL [place] Calcium [Mass/Vol] 8.9 mg/dL 8.4 - 10. 4 mg/dL [place] Chloride [Moles/Vol] 105 mmol/L 98 - 10 7 mmol/L [place] CO2 [Moles/Vol] 26 mmol/L 22 - 30 mmol/L [place] Creatinine [Mass/Vol] 1.18 mg/dL 0.52 - 1.25 mg/dL [place] EGFR IF NonAfrican [place]ic 48.0 mL/min >60 [place] Comment on above: Source- MDRD equatio n with creatinine calibration to IDMS(NKDEP) eGFR not recommended for drug dose adjustment GFR/1.73 sq M predicted among blacks MDRD (S/P/Bld) [Vol rate/Area] 58.1 mL/min/{1.73_m2} >60 [place] Glucose [Mass/Vol] 85 mg/dL 70 - 100 mg/dL [place] Interpretation and review of laboratory results Abnormal [place] Potassium [Moles/Vol] 4.6 mmol/L 3.5 - 5.1 mmol/L [place] Protein [Mass/Vol] 6.4 g/dL 6.3 - 8.2 g/dL [place] Sodium [Moles/Vol] 139 mmol/L 135 - 145 mmol/L [place] Urea nitrogen [Mass/Vol] 30 mg/dL High 7 - 20 mg/dL [place] Test Performed by [facility] [address] [place] [address] [place] Culture, Aerobic Bacteria wi th Gram Staion 06-20-2019 Aerobic Culture Many CARBAPENEMASE GENE DETECTION BY PCR VIM gene DETECTED IMP gene Not Detected NDM gene Not Detected KPC gene Not Detected OXA48 gene Not Detected The targets listed above are genes that may confer resistance to the carbapenems. Methodology: Real-time PCR (LP33.TV) [place] Aerobic Culture Pseudomonas aeruginosa Abnormal [place] Aerobic Culture Mixed enteric dorinda present. Abnormal [place] INR Coag (Bld) [Relative time] Moderate polymorphonuclear cells/lpf. Moderate gram positive cocci. Moderate gram negative bacilli. [place] Interpretation and review of laboratory results Abnormal [place] Test Performed by [facility] [address] [address] [place] [address] [place] POCT Glucoseon 06-20-2019 Glucose [Mass/Vol] 206 mg/dL High 70 - 100 mg/dL [place] Comment on above: Test performed by ucose meter. Results may be 10%-15% lower than serum/plasma values. (CLIA ID [id number]) Interpretation and review of laboratory results Abnormal [place] Test Performed by [facility], [address] [place] [id number] [place] [address] Glucose [Mass/Vol] 200 mg/dL High 70 - 100 mg/dL [place] Comment on above: Test performed by gl ucose meter. Results may be 10%-15% lower than serum/plasma values. (CLIA ID [id number]) Interpretation and review of laboratory results Abnormal [place] Test Performed by [facility], [address] [place] [id number] [place] [address] Glucose [Mass/Vol] 189 mg/dL High 70 - 100 mg/dL [place] Comment on above: Test performed by gl ucose meter. Results may be 10%-15% lower than serum/plasma values. (CLIA ID [id number]) Interpretation and review of laboratory results Abnormal [place] Test Performed by [facility], [address] [place] [address] Surgical Pathologyon 019 Sodium [Moles/Vol] SEE BELOW [place], [place] 1 [id number] [facility] PATH[facility]ATORY MEDICINE [address] [place] [address] FINAL SURGICAL PATHOLOGY REPORT NAME: WILL JACINTO : 1965 53 Y F BILLING NO.: [id number] LOCATION: [id number] PROCEDURE 06/16/2019 DATE: SURGEON: SERGIO PISANO M.D. RECEIVED 06/17/2019 DATE: ATTENDING: JAYESH JORDAN MD REPORT DATE: 06/20/2019 COPIES TO: DIAGNOSIS: LEG, RIGHT ABOVE THE KNEE AMPUTATION - SKIN WITH ULCERATION AND NECROTIZING ACUTE INFLAMMATION OF SOFT TISSUE OF THE FOOT. 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 MILD CALCIFIC ATHEROSCLEROSIS. CA/CA Signature> ALLEN JERRY M.D. CLINICAL INFORMATION: Not provided SPECIMEN: LEG AMPUTATION, NON-TRAUMATIC GROSS DESCRIPTION: "Right AVINASH" Received is a right above knee amputation [...] characteristics determined by the clinical laboratories of [facility]. They have not been cleared by [...] negativity on decalcified specimens. Professional Performing Location: [address] [address] [place] [address]. DEPARTMENT OF PATHOLOGY AND LABORATORY MEDICINE [place], [place] [address] [place] Anaerobic Cultureon 06-19-20 19 Anaerobic Culture Many [place] Anaerobic Culture Positive Abnormal [place] Interpretation and review of laboratory results Abnormal [place] Test Performed by [facility], [address] [place] [address] [place] Comprehensive Metabolic Pane l w/ Reflex to MGon 06-19-2019 Albumin [Mass/Vol] 3.6 g/dL 3.5 - 5 g/dL [place] ALP [Catalytic activity/Vol] 126 U/L 38 - 126 U/L [place] ALT [Catalytic activity/Vol] 54 U/L 13 - 69 U/L [place] Anion gap [Moles/Vol] 10 mmol/L [place] AST [Catalytic activity/Vol] 71 U/L High 15 - 46 U/L [place] Bilirubin Ql (U) 0.6 mg/dL 0.2 - 1.3 mg/dL [place] Calcium [Mass/Vol] 9.0 mg/dL 8.4 - 10. 4 mg/dL [place] Chloride [Moles/Vol] 101 mmol/L 98 - 10 7 mmol/L [place] CO2 [Moles/Vol] 24 mmol/L 22 - 30 mmol/L [place] Creatinine [Mass/Vol] 1.67 mg/dL High 0.52 - 1.25 mg/dL [place] EGFR IF NonAfrican [place]ic 32.1 mL/min >60 [place] Comment on above: Source- MDRD equatio n with creatinine calibration to IDMS(NKDEP) eGFR not recommended for drug dose adjustment GFR/1.73 sq M predicted among blacks MDRD (S/P/Bld) [Vol rate/Area] 38.9 mL/min/{1.73_m2} >60 [place] Glucose [Mass/Vol] 180 mg/dL High 70 - 100 mg/dL [place] Interpretation and review of laboratory results Abnormal [place] Potassium [Moles/Vol] 5.7 mmol/L High 3.5 - 5.1 mmol/L [place] Protein [Mass/Vol] 6.8 g/dL 6.3 - 8.2 g/dL [place] Sodium [Moles/Vol] 135 mmol/L 135 - 145 mmol/L [place] Urea nitrogen [Mass/Vol] 33 mg/dL High 7 - 20 mg/dL [place] Test Performed by [facility], [address] [place] [address] [place] Otheron 06-19-2019 Blood Culture, Routine No growth at 5 days. [place] Test Performed by [facility], [address] [place] [address] Specimen Source Comment:Blood [place] POCT Glucoseon 06-19-2019 Glucose [Mass/Vol] 135 mg/dL High 70 - 100 mg/dL [place] Comment on above: Test performed by PanX ucose meter. Results may be 10%-15% lower than serum/plasma values. (CLIA ID [id number]) Interpretation and review of laboratory results Abnormal [place] Test Performed by [facility], [facility] [place] [address] [place] Glucose [Mass/Vol] 219 mg/dL High 70 - 100 mg/dL [place] Comment on above: Test performed by gl ucose meter. Results may be 10%-15% lower than serum/plasma values. (CLIA ID [id number]) Interpretation and review of laboratory results Abnormal [place] Test Performed by [facility], [address] [place] [address] [place] Glucose [Mass/Vol] 222 mg/dL High 70 - 100 mg/dL [place] Comment on above: Test performed by ucose meter. Results may be 10%-15% lower than serum/plasma values. (CLIA ID [id number]) Interpretation and review of laboratory results Abnormal [place] Test Performed by [facility], [address] [place] [id number] [place] [address] Procalcitoninon 06-19-2019 Interpretation and review of laboratory results Abnormal [place] Procalcitonin 0.32 ng/mL Abnormal <0.10 [place] Sodium [Moles/Vol] See Below [place] Comment on above: PCT <0.50 = Low risk of severe sepsis and/or septic shock. PCT >2.00 = High risk of severe sepsis and/or septic shock. Test Performed by [facility], [address] [place] [address] [place] Comprehensive Metabolic Pane l w/ Reflex to MGon 06-18-2019 Albumin [Mass/Vol] 3.3 g/dL Low 3.5 - 5 g/dL [place] ALP [Catalytic activity/Vol] 94 U/L 38 - 126 U/L [place] ALT [Catalytic activity/Vol] 44 U/L 13 - 69 U/L [place] Anion gap [Moles/Vol] 10 mmol/L [place] AST [Catalytic activity/Vol] 48 U/L High 15 - 46 U/L [place] Bilirubin Ql (U) 0.5 mg/dL 0.2 - 1.3 mg/dL [place] Calcium [Mass/Vol] 8.7 mg/dL 8.4 - 10. 4 mg/dL [place] Chloride [Moles/Vol] 100 mmol/L 98 - 10 7 mmol/L [place] CO2 [Moles/Vol] 26 mmol/L 22 - 30 mmol/L [place] Creatinine [Mass/Vol] 1.53 mg/dL High 0.52 - 1.25 mg/dL [place] EGFR IF NonAfrican [place] 35.6 mL/min >60 [place] Comment on above: Source- MDRD equatio n with creatinine calibration to IDMS(NKDEP) eGFR not recommended for drug dose adjustment GFR/1.73 sq M predicted among blacks MDRD (S/P/Bld) [Vol rate/Area] 43.1 mL/min/{1.73_m2} >60 [place] Glucose [Mass/Vol] 108 mg/dL High 70 - 100 mg/dL [place] Interpretation and review of laboratory results Abnormal [place] Potassium [Moles/Vol] 4.2 mmol/L 3.5 - 5.1 mmol/L [place] Protein [Mass/Vol] 6.1 g/dL Low 6.3 - 8.2 g/dL [place] Sodium [Moles/Vol] 135 mmol/L 135 - 145 mmol/L [place] Urea nitrogen [Mass/Vol] 29 mg/dL High 7 - 20 mg/dL [place] Test Performed by [facility], [address] [place] [address] [place] POCT Glucoseon 06-18-2019 Glucose [Mass/Vol] 189 mg/dL High 70 - 100 mg/dL [place] Comment on above: Test performed by gl ucose meter. Results may be 10%-15% lower than serum/plasma values. (CLIA ID [id number]) Interpretation and review of laboratory results Abnormal [place] Test Performed by [address] [address] [place] Glucose [Mass/Vol] 207 mg/dL High 70 - 100 mg/dL [place] Comment on above: Test performed by gl ucose meter. Results may be 10%-15% lower than serum/plasma values. (CLIA ID [id number]) Interpretation and review of laboratory results Abnormal [place] Test Performed by [facility], [facility] [place] [address] [place] Glucose [Mass/Vol] 206 mg/dL High 70 - 100 mg/dL [place] Comment on above: Test performed by gl ucose meter. Results may be 10%-15% lower than serum/plasma values. (CLIA ID [id number]) Interpretation and review of laboratory results Abnormal [place] Test Performed by [facility], [facility] [place] [address] [place] Glucose [Mass/Vol] 156 mg/dL High 70 - 100 mg/dL [place] Comment on above: Test performed by gl ucose meter. Results may be 10%-15% lower than serum/plasma values. (CLIA ID [id number]) Interpretation and review of laboratory results Abnormal [place] Test Performed by [facility], [facility] [place] [address] [place] CBCon 06-17-2019 Erythrocyte distribution width (RBC) [Ratio] 22.4 % High 11.5 - 14.5 % [place] Hematocrit (Bld) [Volume fraction] 24.8 % Low 35 - 47 % [place] Hemoglobin (Bld) [Mass/Vol] 7.6 g/dL Low 11.7 - 16 g/dL [place] Interpretation and review of laboratory results Abnormal [place] MCH (RBC) [Entitic mass] 23.3 pg Low 26 - 34 pg [place] MCHC (RBC) [Mass/Vol] 30.7 % Low 32 - 36 % [place] MCV (RBC) [Entitic vol] 76.1 fL Low 79 - 98 fL [place] Platelet mean volume (Bld) [Entitic vol] 7.8 fL 7.4 - 10.4 fL [place] Platelets (Bld) [#/Vol] 403 10*3/uL 140 - 440 10*3/uL [place] RBC (Bld) [#/Vol] 3.26 10*6/uL Low 3.8 - 5.2 10*6/uL [place] WBC (Bld) [#/Vol] 13.3 10*3/uL High 3.6 - 10.7 10*3/uL [place] Test Performed by [facility], [address] [place] [address] [place] Comprehensive Metabolic Pane l w/ Reflex to MGon 06-17-2019 Albumin [Mass/Vol] 3.7 g/dL 3.5 - 5 g/dL [place] ALP [Catalytic activity/Vol] 121 U/L 38 - 126 U/L [place] ALT [Catalytic activity/Vol] 30 U/L 13 - 69 U/L [place] Anion gap [Moles/Vol] 14 mmol/L [place] AST [Catalytic activity/Vol] 34 U/L 15 - 46 U/L [place] Bilirubin Ql (U) 0.7 mg/dL 0.2 - 1.3 mg/dL [place] Calcium [Mass/Vol] 8.5 mg/dL 8.4 - 10. 4 mg/dL [place] Chloride [Moles/Vol] 98 mmol/L 98 - 10 7 mmol/L [place] CO2 [Moles/Vol] 21 mmol/L Low 22 - 30 mmol/L [place] Creatinine [Mass/Vol] 0.94 mg/dL 0.52 - 1.25 mg/dL [place] EGFR IF NonAfrican [place]ic >60.0 >60 mL/min [place] Comment on above: Source- MDRD equatio n with creatinine calibration to IDMS(NKDEP) eGFR not recommended for drug dose adjustment GFR/1.73 sq M predicted among blacks MDRD (S/P/Bld) [Vol rate/Area] mL/min/{1.73_m2} >60 mL/min [place] Glucose [Mass/Vol] 399 mg/dL High 70 - 100 mg/dL [place] Comment on above: repeated Interpretation and review of laboratory results Abnormal [place] Potassium [Moles/Vol] 5.3 mmol/L High 3.5 - 5.1 mmol/L [place] Protein [Mass/Vol] 6.6 g/dL 6.3 - 8.2 g/dL [place] Sodium [Moles/Vol] 134 mmol/L Low 135 - 145 mmol/L [place] Urea nitrogen [Mass/Vol] 25 mg/dL High 7 - 20 mg/dL [place] Test Performed by [facility], [facility] [place] [address] [place] Hematologyon 06-17-2019 ABO and Rh group Nom (Bld) 5100 [place] Metabolic Panelon 06-17-2019 Sodium [Moles/Vol] [id number] [place] Sodium [Moles/Vol] released [place] POCT Glucoseon 06-17-2019 Glucose [Mass/Vol] 305 mg/dL High 70 - 100 mg/dL [place] Comment on above: Test performed by gl ucose meter. Results may be 10%-15% lower than serum/plasma values. (CLIA ID [id number]) Interpretation and review of laboratory results Abnormal [place] Test Performed by [facility], [address] [place] [address] [place] Glucose [Mass/Vol] 373 mg/dL High 70 - 100 mg/dL [place] Comment on above: Test performed by gl ucose meter. Results may be 10%-15% lower than serum/plasma values. (CLIA ID [id number]) Interpretation and review of laboratory results Abnormal [place] Test Performed by [facility], [facility] [place] [address] [place] Glucose [Mass/Vol] 477 mg/dL High 70 - 100 mg/dL [place] Comment on above: Test performed by gl ucose meter. Results may be 10%-15% lower than serum/plasma values. (CLIA ID [id number]) Interpretation and review of laboratory results Abnormal [place] Test Performed by [facility], [address] [place] [address] [place] PREPARE RBC (CROSSMATCH)on 0 06-17-2019 Blood product unit ID (Dose) [#] [id number] [place] Blood product unit ID (Dose) [#] [id number] [place] Sodium [Moles/Vol] [id number] mmol/L [place] Sodium [Moles/Vol] [id number] mmol/L [place] Potassiumon 06-17-2019 Interpretation and review of laboratory results Abnormal [place] Potassium [Moles/Vol] 5.4 mmol/L High 3.5 - 5.1 mmol/L [place] Test Performed by [address] [address] [place] Procalcitoninon 06-17-2019 Interpretation and review of laboratory results Abnormal [place] Procalcitonin 0.11 ng/mL Abnormal <0.10 [place] Sodium [Moles/Vol] See Below [place] Comment on above: PCT <0.50 = Low risk of severe sepsis and/or septic shock. PCT >2.00 = High risk of severe sepsis and/or septic shock. Test Performed by [facility], [address] [place] [address] [place] Albuminon 06-16-2019 Albumin [Mass/Vol] 3.9 g/dL 3.5 - 5 g/dL [place] Test Performed by [facility], [address] [place] [address] [place] CBCon 06-16-2019 Erythrocyte distribution width (RBC) [Ratio] 22.9 % High 11.5 - 14.5 % [place] Hematocrit (Bld) [Volume fraction] 28.2 % Low 35 - 47 % [place] Hemoglobin (Bld) [Mass/Vol] 8.8 g/dL Low 11.7 - 16 g/dL [place] Interpretation and review of laboratory results Abnormal [place] MCH (RBC) [Entitic mass] 23.8 pg Low 26 - 34 pg [place] MCHC (RBC) [Mass/Vol] 31.2 % Low 32 - 36 % [place] MCV (RBC) [Entitic vol] 76.0 fL Low 79 - 98 fL [place] Platelet mean volume (Bld) [Entitic vol] 7.7 fL 7.4 - 10.4 fL [place] Platelets (Bld) [#/Vol] 372 10*3/uL 140 - 440 10*3/uL [place] RBC (Bld) [#/Vol] 3.71 10*6/uL Low 3.8 - 5.2 10*6/uL [place] WBC (Bld) [#/Vol] 6.7 10*3/uL 3.6 - 10.7 10*3/uL [place] Test Performed by [facility], [address] [place] [address] [place] Erythrocyte distribution width (RBC) [Ratio] disregard Critically abnormal 11.5 - 14.5 % [place] Comment on above: CORRECTED RESULT...P revious above value was 23.2, verified on 06/16/19 at 04:45 by LRB . Hematocrit (Bld) [Volume fraction] disregard Critically abnormal 35 - 47 % [place] Comment on above: CORRECTED RESULT...P revious above value was 30.2, verified on 06/16/19 at 04:45 by LRB . Hemoglobin (Bld) [Mass/Vol] disregard Critically abnormal 11.7 - 16 g/dL [place] Comment on above: CORRECTED RESULT...P revious above value was 9.3, verified on 06/16/19 at 04:45 by LRB . Interpretation and review of laboratory results Abnormal [place] MCH (RBC) [Entitic mass] disregard Critically abnormal 26 - 34 pg [place] Comment on above: CORRECTED RESULT...P revious above value was 23.4, verified on 06/16/19 at 04:45 by LRB . MCHC (RBC) [Mass/Vol] disregard Critically abnormal 32 - 36 % [place] Comment on above: CORRECTED RESULT...P revious above value was 30.8, verified on 06/16/19 at 04:45 by LRB . MCV (RBC) [Entitic vol] disregard Critical ly abnormal 79 - 98 fL [place] Comment on above: CORRECTED RESULT...P revious above value was 75.8, verified on 06/16/19 at 04:45 by LRB . RBC (Bld) [#/Vol] disregard Critically abnormal 3.8 - 5.2 10*6/uL [place] Comment on above: CORRECTED RESULT...P revious above value was 3.98, verified on 06/16/19 at 04:45 by LRB . WBC (Bld) [#/Vol] disregard Critically abnormal 3.6 - 10.7 10*3/uL [place] Comment on above: CORRECTED RESULT...P revious above value was 3.7, verified on 06/16/19 at 04:45 by LRB . Test Performed by [facility], [address] [place] [id number] [place] [address] Comprehensive Metabolic Pane l w/ Reflex to MGon 06-16-2019 Albumin [Mass/Vol] 3.5 g/dL 3.5 - 5 g/dL [place] ALP [Catalytic activity/Vol] 167 U/L High 38 - 126 U/L [place] ALT [Catalytic activity/Vol] 28 U/L 13 - 69 U/L [place] Anion gap [Moles/Vol] 11 mmol/L [place], [place] AST [Catalytic activity/Vol] 29 U/L 15 - 46 U/L [place] Bilirubin Ql (U) 0.7 mg/dL 0.2 - 1.3 mg/dL [place] Calcium [Mass/Vol] 8.6 mg/dL 8.4 - 10. 4 mg/dL [place] Chloride [Moles/Vol] 98 mmol/L 98 - 10 7 mmol/L [place] CO2 [Moles/Vol] 23 mmol/L 22 - 30 mmol/L [place] Creatinine [Mass/Vol] 0.87 mg/dL 0.52 - 1.25 mg/dL [place] EGFR IF NonAfrican Greenlandic >60.0 >60 mL/min [place] Comment on above: Source- MDRD equatio n with creatinine calibration to IDMS(NKDEP) eGFR not recommended for drug dose adjustment GFR/1.73 sq M predicted among blacks MDRD (S/P/Bld) [Vol rate/Area] mL/min/{1.73_m2} >60 mL/min [place] Glucose [Mass/Vol] 385 mg/dL High 70 - 100 mg/dL [place] Interpretation and review of laboratory results Abnormal [place] Potassium [Moles/Vol] 4.9 mmol/L 3.5 - 5.1 mmol/L [place] Protein [Mass/Vol] 6.5 g/dL 6.3 - 8.2 g/dL [place] Sodium [Moles/Vol] 131 mmol/L Low 135 - 145 mmol/L [place] Urea nitrogen [Mass/Vol] 31 mg/dL High 7 - 20 mg/dL [place] Test Performed by [facility], [facility] [place] [address] [place] Hemoglobin A1Con 06-16-2019 eAG 240 mg/dL [place] HbA1c (Bld) [Mass fraction] 10.0 % High 4 - 5.7 % [place] Comment on above: --HgbA1C levels may not be accurate in patients who have renal disease, received recent blood transfusions, are anemic, or who have dyshemoglobinemia. Interpretation and review of laboratory results Abnormal [place] Test Performed by [facility], [facility] [place] [address] [place] POCT Glucoseon 06-16-2019 Glucose [Mass/Vol] 386 mg/dL High 70 - 100 mg/dL [facility] Comment on above: Test performed by gl ucose meter. Results may be 10%-15% lower than serum/plasma values. (CLIA ID [id number]) Interpretation and review of laboratory results Abnormal [facility] Test Performed by [facility], [address] [place] [address] [facility] Glucose [Mass/Vol] 287 mg/dL High 70 - 100 mg/dL [facility] Comment on above: Test performed by gl ucose meter. Results may be 10%-15% lower than serum/plasma values. (CLIA ID [id number]) Interpretation and review of laboratory results Abnormal [facility] Test Performed by [facility], [address] [place] [place] [address] [facility] Glucose [Mass/Vol] 285 mg/dL High 70 - 100 mg/dL [facility] Comment on above: Test performed by gl ucose meter. Results may be 10%-15% lower than serum/plasma values. (CLIA ID [id number]) Interpretation and review of laboratory results Abnormal [facility] Test Performed by [facility], [address], [place] [address] [facility] Glucose [Mass/Vol] 431 mg/dL High 70 - 100 mg/dL [facility] Comment on above: Test performed by gl ucose meter. Results may be 10%-15% lower than serum/plasma values. (CLIA ID [id number]) Interpretation and review of laboratory results Abnormal [facility] Test Performed by [facility], [address] [place] [address] [facility] Glucose [Mass/Vol] 431 mg/dL High 70 - 100 mg/dL [facility] Comment on above: Test performed by gl ucose meter. Results may be 10%-15% lower than serum/plasma values. (CLIA ID [id number]) Interpretation and review of laboratory results Abnormal [facility] Test Performed by [facility], [address] [place] [address] [facility] Vancomycin, Troughon 2 019 Vancomycin Tr 17.1 ug/mL 15 - 20 ug/mL [place] Comment on above: . Test Performed by [facility], [address] [place] [address] [place] CBCon 06-15-2019 Erythrocyte distribution width (RBC) [Ratio] 22.9 % High 11.5 - 14.5 % [place] Hematocrit (Bld) [Volume fraction] 27.2 % Low 35 - 47 % [place] Hemoglobin (Bld) [Mass/Vol] 8.8 g/dL Low 11.7 - 16 g/dL [place] Interpretation and review of laboratory results Abnormal [place] MCH (RBC) [Entitic mass] 24.1 pg Low 26 - 34 pg [place] MCHC (RBC) [Mass/Vol] 32.2 % 32 - 36 % [place] MCV (RBC) [Entitic vol] 74.8 fL Low 79 - 98 fL [place] Platelet mean volume (Bld) [Entitic vol] 7.8 fL 7.4 - 10.4 fL [place] Platelets (Bld) [#/Vol] 353 10*3/uL 140 - 440 10*3/uL [place] RBC (Bld) [#/Vol] 3.64 10*6/uL Low 3.8 - 5.2 10*6/uL [place] WBC (Bld) [#/Vol] 6.6 10*3/uL 3.6 - 10.7 10*3/uL [place] Test Performed by [facility], [address] [place] [address] [place] Comprehensive Metabolic Pane l w/ Reflex to MGon 06-15-2019 Albumin [Mass/Vol] 3.4 g/dL Low 3.5 - 5 g/dL [place] ALP [Catalytic activity/Vol] 168 U/L High 38 - 126 U/L [place] ALT [Catalytic activity/Vol] 27 U/L 13 - 69 U/L [place] Anion gap [Moles/Vol] 10 mmol/L [place], [place] AST [Catalytic activity/Vol] 30 U/L 15 - 46 U/L [place] Bilirubin Ql (U) 0.5 mg/dL 0.2 - 1.3 mg/dL [place] Calcium [Mass/Vol] 8.7 mg/dL 8.4 - 10. 4 mg/dL [place] Chloride [Moles/Vol] 100 mmol/L 98 - 10 7 mmol/L [place] CO2 [Moles/Vol] 25 mmol/L 22 - 30 mmol/L [place] Creatinine [Mass/Vol] 0.86 mg/dL 0.52 - 1.25 mg/dL [place] EGFR IF NonAfrican [place]ic >60.0 >60 mL/min [place] Comment on above: Source- MDRD equatio n with creatinine calibration to IDMS(NKDEP) eGFR not recommended for drug dose adjustment GFR/1.73 sq M predicted among blacks MDRD (S/P/Bld) [Vol rate/Area] mL/min/{1.73_m2} >60 mL/min [place] Glucose [Mass/Vol] 281 mg/dL High 70 - 100 mg/dL [place] Interpretation and review of laboratory results Abnormal [place] Potassium [Moles/Vol] 4.7 mmol/L 3.5 - 5.1 mmol/L [place] Protein [Mass/Vol] 6.4 g/dL 6.3 - 8.2 g/dL [place] Sodium [Moles/Vol] 135 mmol/L 135 - 145 mmol/L [place] Urea nitrogen [Mass/Vol] 31 mg/dL High 7 - 20 mg/dL [place] Test Performed by [facility], [address] [place] [address], [place] [address] [place] EKG 12 Leadon 06-15-2019 Robert, [facility] Incoming Cardiology Results From [facility] - 06/15/2019 5:33 PM EDT [facility] Test Date: 2019-06-14 Pat Name: Will Jacinto Department: 1A6 Room: 6125 Gender: F 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: DILLON : 1965 Requested By: Order Number: [id number] Reading MD: Ezio Munguia Intervals Curlew Rate: 97 P: 50 CA: 169 QRS: -27 QRSD: 113 T: 50 QT: 363 QTc: 461 Interpretive Statements Sinus rhythm Low voltage, precordial leads Left ventricular hypertrophy ST elev, consider awmi Electronically Signed On 06-15-2019 17:32:44 EDT by Ezio Schmitt [facility] [employer] TechnologiesSAINT LOU[facility] UNIVERS[facility] HE[facility] SCIENCE CENTERZapproved [facility] Test Date: 2019-06-14 Pat Name: Will aJcinto Department: 1A6 Room: 6125 Gender: F 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: DILLON : 1965 Requested By: Order Number: [id number] Reading : Ezio Schmitt Measurements Intervals Curlew Rate: 97 P: 50 CA: 169 QRS: -27 QRSD: 113 T: 50 QT: 363 QTc: 461 Interpretive Statements Sinus rhythm Low voltage, precordial leads Left ventricular hypertrophy ST elev, consider awmi Electronically Signed On 06-15-2019 17:32:44 EDT by Ezio [place], [place] POCT Glucoseon 06-15-2019 Glucose [Mass/Vol] 402 mg/dL High 70 - 100 mg/dL [place] Comment on above: Test performed by gl ucose meter. Results may be 10%-15% lower than serum/plasma values. (CLIA ID [id number]) Interpretation and review of laboratory results Abnormal [facility] :[facility] [employer]AN[employer] Test Performed by [facility], [facility] [place] [address] [facility] [place] [place] Glucose [Mass/Vol] 315 mg/dL High 70 - 100 mg/dL [place] Comment on above: Test performed by gl ucose meter. Results may be 10%-15% lower than serum/plasma values. (CLIA ID [id number]) Interpretation and review of laboratory results Abnormal [facility] In :[employer] Test Performed by [facility], [address] [place] [address] [facility] Glucose [Mass/Vol] 290 mg/dL High 70 - 100 mg/dL [facility] [place] Comment on above: Test performed by gl ucose meter. Results may be 10%-15% lower than serum/plasma values. (CLIA ID [id number]) Interpretation and review of laboratory results Abnormal [facility] [place] Test Performed by [facility], [address] [place] [address] [facility] Glucose [Mass/Vol] 414 mg/dL High 70 - 100 mg/dL [facility] [place] Comment on above: Test performed by gl ucose meter. Results may be 10%-15% lower than serum/plasma values. (CLIA ID [id number]) Interpretation and review of laboratory results Abnormal [facility] Test Performed by [facility], [address] [place] [address] [facility] [place] Glucose [Mass/Vol] 366 mg/dL High 70 - 100 mg/dL [facility] Comment on above: Test performed by gl ucose meter. Results may be 10%-15% lower than serum/plasma values. (CLIA ID [id number]) Interpretation and review of laboratory results Abnormal [facility] [place] Test Performed by [facility], [address] [place] [address] [facility] [place] Glucose [Mass/Vol] 357 mg/dL High 70 - 100 mg/dL [facility] [place] Comment on above: Test performed by gl ucose meter. Results may be 10%-15% lower than serum/plasma values. (CLIA ID [id number]) Interpretation and review of laboratory results Abnormal [facility] Test Performed by [facility], [address] [place] [address] [facility] [place] Add On Lab Teston 06-14-2019 Sodium [Moles/Vol] Accepted [facility] [place] Comment on above: Specimen available & acceptable for analysis. Test Performed by [facility], [address] [address] [facility] Basic Metabolic Panelon 08-0 7-2019 Anion gap [Moles/Vol] 13 mmol/L [place] Calcium [Mass/Vol] 9.6 mg/dL 8.4 - 10. 4 mg/dL [place] Chloride [Moles/Vol] 96 mmol/L Low 98 - 10 7 mmol/L [place] CO2 [Moles/Vol] 27 mmol/L 22 - 30 mmol/L [place] Creatinine [Mass/Vol] 0.89 mg/dL 0.52 - 1.25 mg/dL [place] EGFR IF NonAfrican [place]ic >60.0 >60 mL/min [place] Comment on above: Source- MDRD equatio n with creatinine calibration to IDMS(NKDEP) eGFR not recommended for drug dose adjustment GFR/1.73 sq M predicted among blacks MDRD (S/P/Bld) [Vol rate/Area] mL/min/{1.73_m2} >60 mL/min [place] Glucose [Mass/Vol] 325 mg/dL High 70 - 100 mg/dL [place] Interpretation and review of laboratory results Abnormal [place] Potassium [Moles/Vol] 4.8 mmol/L 3.5 - 5.1 mmol/L [place] Sodium [Moles/Vol] 135 mmol/L 135 - 145 mmol/L [place] Urea nitrogen [Mass/Vol] 30 mg/dL High 7 - 20 mg/dL [place] Beta-Hydroxybutyrateon 06-14 Beta-Hydroxybutyrate 1.24 mg/dL 0.2 - 2 .81 mg/dL [place] C-Reactive Proteinon 019 CRP [Mass/Vol] 30.7 mg/L High 0 - 6 mg/L [place] Comment on above: . Interpretation and review of laboratory results Abnormal [place] Test Performed by [facility], [address] [place] [address] [place] Hemogram (CBC) w/Auto Diffon 06-14-2019 Absolute Baso # 0.0 10*3/uL 0 - 0.2 10*3/uL [place] Absolute Neut # 4.8 10*3/uL 1.8 - 7 10*3/uL [place] Basophils/100 WBC (Bld) 0.5 % 0 - 2 % [place], [place] Eosinophils (Bld) [#/Vol] 0.1 10*3/uL 0 - 0.5 10*3/uL [place] Eosinophils/100 WBC (Bld) 1.1 % 1 - 6 % [place] Erythrocyte distribution width (RBC) [Ratio] 22.6 % High 11.5 - 14.5 % [place] Granulocytes/100 WBC (Bld) 69.0 % 40 - 80 % [place] Hematocrit (Bld) [Volume fraction] 30.2 % Low 35 - 47 % [place] Hemoglobin (Bld) [Mass/Vol] 9.6 g/dL Low 11.7 - 16 g/dL [place] Interpretation and review of laboratory results Abnormal [place] Lymphocytes (Bld) [#/Vol] 1.5 10*3/uL 1 - 4.3 10*3/uL [place] Lymphocytes/100 WBC (Bld) 20.9 % 20 - 40 % [place] MCH (RBC) [Entitic mass] 23.8 pg Low 26 - 34 pg [place] MCHC (RBC) [Mass/Vol] 31.7 % Low 32 - 36 % [place] MCV (RBC) [Entitic vol] 75.1 fL Low 79 - 98 fL [place] Monocytes (Bld) [#/Vol] 0.6 10*3/uL 0 - 0.8 10*3/uL [place] Monocytes/100 WBC (Bld) 8.5 % 2 - 10 % [place] Platelet mean volume (Bld) [Entitic vol] 7.8 fL 7.4 - 10.4 fL [place] Platelets (Bld) [#/Vol] 396 10*3/uL 140 - 440 10*3/uL [place] RBC (Bld) [#/Vol] 4.03 10*6/uL 3.8 - 5.2 10*6/uL [place] WBC (Bld) [#/Vol] 7.0 10*3/uL 3.6 - 10.7 10*3/uL [place] Test Performed by [facility], [facility] [address] Lactic Acid, Plasmaon 2018 Interpretation and review of laboratory results Abnormal [place] Lactate [Moles/Vol] 3.7 mmol/L Critically high 0.7 - 2 mmol/L [place] Comment on above: Repeated Test Performed by [facility], [facility] [address] Otheron 06-14-2019 Test Performed by [facility], [facility] [address] POCT Glucoseon 06-14-2019 Glucose [Mass/Vol] 325 mg/dL High 70 - 100 mg/dL [place] Comment on above: Test performed by gl ucose meter. Results may be 10%-15% lower than serum/plasma values. (CLIA ID [id number]) Interpretation and review of laboratory results Abnormal [place] Test Performed by [facility], [facility] [address] Procalcitoninon 06-14-2019 Procalcitonin <0.10 <0.10 ng/mL [place] Sodium [Moles/Vol] See Below [place] Comment on above: PCT <0.50 = Low risk of severe sepsis and/or septic shock. PCT >2.00 = High risk of severe sepsis and/or septic shock. Test Performed by [facility], [facility] [address] Protime-INRon 06-14-2019 INR Coag (PPP) [Relative time] 1.0 {INR} [place] Comment on above: Recommended Anticoag ulant [...] [Time] 10.9 s 9 - 12 s [place] Comment on above: . Test Performed by [facility], [facility] [address] [place], [place] [address] [place] [address] Sedimentation Rateon 019 Interpretation and review of laboratory results Abnormal [place] Sed Rate 65 mm/h High 0 - 20 mm/h [place] Test Performed by [facility], [facility] [address] [place], [place] [address] [place] [address] TYPE AND SCREENon 06-14-2019 Sodium [Moles/Vol] O [place] Sodium [Moles/Vol] Positive [place] Comment on above: Test Performed by [facility], [facility] [address] Sodium [Moles/Vol] Negative [place] Comment on above: Test Performed by [facility], [facility] [address] Test Performed by [facility], [facility] [address] [place], [place] [address] [place] [address] XR CHEST 1 VWon 06-14-2019 Robert, [facility] Incoming Radiology Results From [facility] - 06/14/2019 8:45 PM EDT Patient Name: WILL JACINTO ---Diagnostic Radiology--- Exam Date/Time 06/14/2019 20:33:50 EDT Exam CR Chest 1 View Frontal Ordering Physician [id number] [employer] Accession Number [id number] CPT4 Codes 66448 () Reason For Exam preop Report Portable [...] RISA Transcribed Date and Time: 06/14/2019 8:44 [place] Patient Name: WILL ALVARADO ---Diagnostic Radiology--- Exam Date/Time 06/14/2019 20:33:50 EDT Exam CR Chest 1 View Frontal Ordering Physician [id number] MCDOWELL Accession Number [id number] CPT4 Codes 29906 () Reason For Exam preop Report Portable [...] RISA Transcribed Date and Time: 06/14/2019 8:44 [place] XR FEMUR RIGHT (MIN 2 VIEWS) on 06-14-2019 Robert, [facility] Incoming Radiology Results From [facility] - 06/14/2019 11:58 PM EDT Patient Name: WILL JACINTO ---Diagnostic Radiology--- Exam Date/Time 06/14/2019 23:38:07 EDT Exam CR Femur 2+ Views Right n Ordering Physician [id number] GAUTAM Accession Number [id number] CPT4 Codes 13520 () Reason For Exam pain Report CLINICAL [...] acute osseous findings. Report Dictated on Workstation: [id number] --- Final --- Dictated: 06/14/2019 11:55 pm Dictating Physician: MD OVALLES JEFFREY Signed Date and Time: 06/14/2019 11:57 pm Signed by: MD OVALLES JEFFREY Transcribed Date and Time: 06/14/2019 11:55 [place] Patient Name: WILL ALVARADO ---Diagnostic Radiology--- Exam Date/Time 06/14/2019 23:38:07 EDT Exam CR Femur 2+ Views Right n Ordering Physician New [employer] Accession Number [id number] CPT4 Codes 56901 () Reason For Exam pain Report CLINICAL [...] JEFFREY Transcribed Date and Time: 06/14/2019 11:55 [place] XR FOOT RIGHT (MIN 3 VIEWS)o n 06-14-2019 Patient Name: WILL ALVARADO ---Diagnostic Radiology--- Exam Date/Time 06/14/2019 16:26:30 EDT Exam CR Foot Complete 3+ Views Right Ordering Physician MD ORTIZ DOUGALAS R. Accession Number [id number] CPT4 Codes 31291 () Reason For Exam R foot xray [...] midfoot neuropathic changes. Report Dictated on Workstation: [employer] --- Final --- Dictated: 06/14/2019 4:40 pm Dictating Physician: MD GREGORY ANTHONY J Signed Date and Time: 06/14/2019 4:51 pm Signed by: MD GREGORY ANTHONY J Transcribed Date and Time: 06/14/2019 4:40 [facility] [place] [place] Robert, Lakiaa Incoming Radiology Results From [facility] - 06/14/2019 4:52 PM EDT Patient Name: WILL JACINTO ---Diagnostic Radiology--- Exam Date/Time 06/14/2019 16:26:30 EDT Exam CR Foot Complete 3+ Views Right Ordering Physician MD MONY, RENE Zhen Accession Number [id number] CPT4 Codes 46354 () Reason For Exam R foot xray [...] midfoot neuropathic changes. Report Dictated on Workstation: [id number] --- Final --- Dictated: 06/14/2019 4:40 pm Dictating Physician: MD GREGORY ANTHONY J Signed Date and Time: 06/14/2019 4:51 pm Signed by: MD GREGORY ANTHONY J Transcribed Date and Time: 06/14/2019 4:40 [facility] [place] [place] Jonatan 01-03-2019 CNOV Office Visit (PLWDMR ) -------- WILL JACINTO ([id number]) 1965 M Date Time Provider Department 01/03/19 [...] put on Avycaz. Prescription orders written on intermediate paperwork Discussed with patient in detail Modify [...] capsules by mouth every 6 hours. Acidophilus-Pectin, [place] 25 million cell -100 mg tab Take [...] reviewed Imaging data: reviewed Jayson Hawthorne MD [phone] 01/03/2019 2:22 PM Roselia Sandoval RN, RN 01/03/2019 2:58 PM Addendum Nursing [...] intent to comply. Roselia Sandoval RN, RN 01/03/2019 2:53 PM Addendum WOUND CARE INSTRUCTIONS Will Jacinto Wound location: Right lateral foot and right lateral lower leg Continue current wound care from [place] Compression: ? Cast cover may be purchased [...] following changes to the Wound Center at [phone] or go to the Emergency Department: ? [...] to be placed. Zosyn Continue Doxycycline Dr. Ashley MD/pw Referring Provider: SELF [200] Allergies As of Date: 01/03/2019 (No Known Allergies) Date Reviewed: 01/03/2019 Reviewed by: Priscila Cantu) ZINA Vazquez - Fully Assessed Reason for Visit: Wound Check [133] Cmt: right lateral leg Primary Visit Diagnosis:History of wound infection [Z86.19] Order(s):WOUND CULTURE AND GRAM STAIN [SQWCUL] Order #: [id number]. #:[id number] WOUND CULTURE AND GRAM STAIN [SQWCUL] Order #: [id number]. #:[id number] Prescriptions as of 01/03/2019 Sig: DOXYCYCLINE MONOHYDRATE [...] lower leg Continue current wound care from [place] Compression: ? Cast cover may be purchased [...] following changes to the Wound Center at [phone] or go to the Emergency Department: ? [...] to be placed. Zosyn Continue Doxycycline Dr. Ashley MD/pw Visit Notes: >> Roselia (Rn) PASTORA Sandoval josefina Jan 03, 2019 2:23 PM Status: Addendum [...] Encounter Status:Closed by DEBBIE CASEY on 01/04/19 [facility] PROGRESSon 01-03-2019 Protein mass conc HNO ID: [id number] Author: Jayson Hawthorne MD Service: (none) Author [...] put on Avycaz. Prescription orders written on intermediate paperwork Discussed with patient in detail Modify [...] capsules by mouth every 6 hours. Acidophilus-Pectin, [place] 25 million cell -100 mg tab Take [...] reviewed Imaging data: reviewed Jayson Hawthorne MD [phone] 01/03/2019 2:22 PM [facility] Wound Culture/Stainon 2018 Wound Culture/Stain Sp. [...] F Ertapenem SUSCEPTIBLE <=0.5 F Critically abnormal [facility] [facility] Comment on above: Performed By: #### W CUL ####[facility], [place] [phone] Wound Culture/Stain Sp. Request/Comment: - Eswab Smear [...] on --> ABNORMAL ALERT 01/03/2019 AT 1500 ([id number]) --> ABNORMAL ALERT Many --> ABNORMAL ALERT Providencia stuartii --> ABNORMAL ALERT Refer to specimen collected on --> ABNORMAL ALERT 01/03/2019 AT 1500 ([id number]) --> ABNORMAL ALERT Many --> ABNORMAL ALERT Enterococcus faecalis --> ABNORMAL ALERT Cephalosporins, clindamycin, and TMP-SMX are not effective for the treatment of enterococcal infections. --> ABNORMAL ALERT Rare skin dorinda ORGANISM: Enterococcus faecalis METHOD: Minimum inhibitory concentration(Vitek) Antibiotic Interp TULIO Status Ampicillin SUSCEPTIBLE <=2 F Vancomycin SUSCEPTIBLE 1 F Critically abnormal [facility] Comment on above: Performed By: #### W CUL ####[facility], [place] [phone] CNOVon 12-27-2018 CNOV Office Visit (PLWDMR ) -------- WILL JACINTO ([id number]) 1965 M Date Time Provider Department 12/27/18 [...] doing debridement periodically. He was admitted to [facility] both in September as well as October 2018. He is not currently on any antibiotics. MEDICATIONS: ARIPiprazole (ABILIFY) 10 mg tablet Take 10 mg by mouth once daily. acetaminophen 325 mg cap Take 2 capsules by mouth every 6 hours. Acidophilus-Pectin, [place] 25 million cell -100 mg tab Take [...] mouth once daily. insulin lispro (HUMALOG LEONARDO KWESTELLE U-100) 100 unit/mL inph Inject 100 Units [...] reviewed Imaging data: reviewed Jayson Hawthorne MD [phone] 12/27/2018 2:07 PM Debbie Casey, RN, RN 12/27/2018 2:18 PM Signed Nursing [...] toes to 1' below the knee. MARY WRAP/Tubi-club car attendant: Foot is warm and pink before and [...] dressing twice daily Apply a size G tubi-club car attendant from behind the toes to 1" below [...] following changes to the Wound Center at [phone] or go to the Emergency Department: ? Fever or chills ? Increased drainage ? Green or yellow drainage ? Foul odor ? Increased pain ? Hardness around the wound ? Redness, warmth or swelling of the surrounding tissue ? Color change to the wound PLAN: Return to the wound center to see ID in 1 week Rx: Doxycycline Dr. Ashley MD/thiago Casey, RN, RN 12/27/2018 4:03 PM Signed Call placed to to nursing facility by [facility] to request a wound culture that was missed in the wound center. They agreed to collect and then send results to the wound center. 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 Fever or chills ? Increased drainage ? Green or yellow drainage ? Foul odor ? Increased pain ? Hardness around the wound ? Redness, warmth or swelling of the surrounding tissue ? Color change to the wound PLAN: Return to the wound center to see ID in 1 week Rx: Doxycycline Dr. Ashley MD/thiago Visit Notes: >> Debbie Casey RN josefina Dec 27, 2018 2:09 PM Status: Signed [...] toes to 1' below the knee. MARY WRAP/Tubi-club car attendant: Foot is warm and pink before and [...] intent to comply. >> Debbie Casey RN josefina Dec 27, 2018 3:59 PM Status: Signed [...] Encounter Status:Closed by DEBBIE CASEY on 12/27/18 [facility] PROGRESSon 12-27-2018 Protein mass conc HNO ID: [id number] Author: Jayson Hawthorne MD Service: (none) Author [...] doing debridement periodically. He was admitted to [facility] both in September as well as October 2018. He is not currently on any antibiotics. MEDICATIONS: ARIPiprazole (ABILIFY) 10 mg tablet Take 10 mg by mouth once daily. acetaminophen 325 mg cap Take 2 capsules by mouth every 6 hours. Acidophilus-Pectin, [place] 25 million cell -100 mg tab Take [...] reviewed Imaging data: reviewed Jayson Hawthorne MD [phone] 12/27/2018 2:07 PM [facility] CNOVon 07-12-2018 CNOV Office Visit (PLWDMR ) -------- WILL JACINTO ([id number]) 1965 M Date Time Provider Department 07/12/18 [...] capsules by mouth every 6 hours. Acidophilus-Pectin, [place] 25 million cell -100 mg tab Take [...] reviewed Imaging data: reviewed Jayson Hawthorne MD [phone] 07/12/2018 2:03 PM Priscila Vazquez MA, MA [...] and kerlix. Size G Tubigrip applied. MARY WRAP/Tubi-club car attendant: Foot is warm and pink before and [...] following changes to the Wound Center at [phone] or go to the Emergency Department: ? [...] diabetic peripheral angiopathy without gangrene, unspecified whether detention insulin use ([facility]) [E11.51] Prescriptions as of 07/12/2018 [...] following changes to the Wound Center at [phone] or go to the Emergency Department: ? Fever or chills ? Increased drainage ? Green or yellow drainage ? Foul odor ? Increased pain ? Hardness around the wound ? Redness, warmth or swelling of the surrounding tissue ? Color change to the wound PLAN: Return to the wound center in [address] to [address] Dr. Glenn Hawthorne MD/[facility] Visit Notes: >> Priscila (ZINA Perry Jul 12, 2018 2:11 PM Status: Addendum [...] and kerlix. Size G Tubigrip applied. MARY WRAP/Tubi-club car attendant: Foot is warm and pink before and [...] Status:Closed by JAYSON HAWTHORNE MD on 07/15/18 [facility] PROGRESSon 07-12-2018 Protein mass conc HNO ID: [id number] Author: Jayson Hawthorne MD Service: (none) Author [...] capsules by mouth every 6 hours. Acidophilus-Pectin, [place] 25 million cell -100 mg tab Take [...] reviewed Imaging data: reviewed Jayson Hawthorne MD [phone] 07/12/2018 2:03 PM [facility] 06-28-2018 CN Office Visit (PLWDMR ) -------- TABWILL JOHNSON ([id number]) 1965 M Date Time Provider Department 06/28/18 [...] capsules by mouth every 6 hours. Acidophilus-Pectin, [place] 25 million cell -100 mg tab Take [...] following changes to the Wound Center at [phone] or go to the Emergency Department: ? [...] Date Reviewed: 06/28/2018 Reviewed by: Evonne (Pcna) Safia PCNA - Fully Assessed Reason for Visit: Wound [...] following changes to the Wound Center at [phone] or go to the Emergency Department: ? [...] Visit Notes: >> Roselia (Rn) PASTORA Sandoval josefina Jun 28, 2018 2:33 PM Status: Signed [...] Status:Closed by TERRIE KWAN MD on 06/30/18 [facility] PROGRESSon 06-28-2018 Protein mass conc HNO ID: [id number] Author: Terrie Kwan Service: (none) Author Type: [...] capsules by mouth every 6 hours. Acidophilus-Pectin, [place] 25 million cell -100 mg tab Take [...] Imaging data: reviewed Terrie Kwan MD Pager: [facility] 06-14-2018 [facility] Office Visit (PLWDMR ) -------- OPHELIAWILL Gilliam ([id number]) 1965 M Date Time Provider Department 06/14/18 [...] PICC line to be removed by the intermediate Continue compression for edema and lymphedema management Continue aggressive wound care He is at a intermediate for wound healing and will go home [...] reviewed Imaging data: reviewed Jayson Hawthorne MD [phone] 06/14/2018 1:56 PM Debbie Casey RN, RN [...] weeks PICC is to be removed per intermediate EDUCATION: The patient/family was instructed how to [...] following changes to the Wound Center at [phone] or go to the Emergency Department: ? Fever or chills ? Increased drainage ? Green or yellow drainage ? Foul odor ? Increased pain ? Hardness around the wound ? Redness, warmth or swelling of the surrounding tissue ? Color change to the wound PLAN: Return to the wound center to see ID in 2 weeks PICC is to be removed per intermediate Dr. 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 Fever or chills ? Increased drainage ? Green or yellow drainage ? Foul odor ? Increased pain ? Hardness around the wound ? Redness, warmth or swelling of the surrounding tissue ? Color change to the wound PLAN: Return to the wound center to see ID in 2 weeks PICC is to be removed per intermediate Dr. Ashley DUMONT/mjl Visit Notes: >> Debbie (Rn) PASTORA Casey josefina Jun 14, 2018 1:53 PM Status: Signed [...] weeks PICC is to be removed per intermediate EDUCATION: The patient/family was instructed how to [...] Encounter Status:Closed by LURDES CARMONA on 06/16/18 [facility] PROGRESSon 06-14-2018 Protein mass conc HNO ID: [id number] Author: Jayson Hawthorne MD Service: (none) Author Type: Physician Type: Progress Notes Filed: 06/16/2018 11:23 AM Note Text: INFECTIOUS DISEASE WOUND CENTER NOTE Patient Name: Will Jacinto Date: 06/14/2018 ASSESSMENT: R 5th toe OM PsAG and diphtheroids infection Leg lymphedema Obesity DM2 PLAN: Stop meropenem She has completed 6 weeks of treatment PICC line to be removed by the intermediate Continue compression for edema and lymphedema management Continue aggressive wound care He is at a intermediate for wound healing and will go home [...] reviewed Imaging data: reviewed Jayson Hawthorne MD [phone] 06/14/2018 1:56 PM [facility] Culture Anaerobeon 8 Culture Anaerobe Specimen Comments: RIGHT FIFTH METATARSALCulture Observations: No anaerobes isolatedSusceptibility Data: --- [facility] Comment on above: Order Comment: CONTR AST PER RADIOLOGIST DISCRETION. R/o abscess, OM Performed By: #### C HARLAN ####[facility], [place] [address] Culture Wound Aerobic w/ Gra m Ston 05-04-2018 Culture Wound Aerobic w/ Gram St Specimen Comments: RIGHT FIFTH METATARSALCulture Exam: ---------1. Corynebacterium striatum Small numbers ofSusceptibility Data: --- [facility] Comment on above: Order Comment: CONTR AST PER RADIOLOGIST DISCRETION. R/o abscess, OM Result Comment: [facility] eptibility testing not routinely performed on this isolate. Performed By: #### C XWND ####[facility] [place] [address] Surgical Pathology Depar tmenton 05-04-2018 [facility] Surgical Pathology Department Name WILL JACINTO Pathologist: VIRGIL JIMENEZ MDDate of Procedure: 05/04/2018Date Received: 05/04/2018Date Reported 05/12/2018Submitting Physician: IWONA NEWSOMEocation: [facility] Copy To/Referring/Attending:Gina GARNER MD Other External # [id number] FINAL DIAGNOSISFIFTH METATARSAL, RIGHT, AMPUTATION: --MARROW WITH CHRONIC OSTEOMYELITIS AND FOCAL HEMATOPOIESIS--BONE AND CARTILAGE WITH DEGENERATIVE CHANGES Electronically Signed Out By VIRGIL JIMENEZ MD/Johnnie the signature on this report, the individual or group listed as making theFinal Interpretation/Diagnosis certifies that they have reviewed this case. Clinical History:Osteomyelitits 5th metatarsal right footSpecimens Submitted As:A: RIGHT FIFTH METATARSAL Other Case Numbers [id number] Description:A. Received in formalin, labeled with the patient's name and hospital numberand right fifth metatarsal is a single fragment of bone measuring 4.3 x 3.1 x2.2 cm. Director Of Corporate Strategy sections of the specimen are submitted followingdecalcification .HXRhxr/05/06/2018 Normal [facility] Comment on above: Performed By: #### U HCS ####[facility] Surgical Pathology [address] [place] [address] Ferritinon 04-30-2018 Ferritin 138 ng/mL Normal 8-252 [facility] Comment on above: Performed By: #### B 12, DRE ####[place] [id number] Iron with TIBCon 04-30-2018 % Saturation 19 % Normal 16-46 [facility] Comment on above: Performed By: #### I RONIBC ####[place] [address] Iron 43 ug/dL Low 50-170 [facility] Comment on above: Performed By: #### I RONIBC ####[place] [id number] TIBC 222 ug/dL Low 250-450 [facility] Comment on above: Performed By: #### I RONIBC ####[place] [id number] Occult Blood Stool 1-3on Occult Blood Normal NEGATIVE [facility] Comment on above: Order Comment: CONTR AST PER RADIOLOGIST DISCRETION. R/o abscess, OM Performed By: #### O CBLDST ####[place] [id number] Occult Blood Negative Normal NEGATIVE [facility] Comment on above: Order Comment: CONTR AST PER RADIOLOGIST DISCRETION. R/o abscess, OM Performed By: #### O CBLDST ####[place] [address] Vitamin B12on 04-30-2018 Cobalamins (Vitamin B12) 365.0 pg/mL Normal 193.0-986.0 [facility] Comment on above: Performed By: #### B 12DRE ####[facility] [place] [address] MRI Low Ext RT Non-JT w/wo c celeste 04-29-2018 MRI Low Ext RT Non-JT w/wo contrast Examination:MRI right footClinical Indication:Pain, swelling and drainage, multiple ulcersComparison:NoneFin dings:Multiplanar multisequence high field strength MRI images were obtained throughthe right foot prior to and after 15 mL Gadavist intravenous gadolinium.Examination is moderately limited by motion artifact and slightly pdhktkydxneebtfe-qx-rkvt e. Unable to utilize the dedicated foot [...] of the fifth metatarsal.Report Dictated on Workstation: [id number] ed by: Shayy Gregory: 04/29/2018 14:18Read by: ROSE GREGORY, MDDate: 04/29/2018 14:18 [facility] Comment on above: Order Comment: CONTR [...] assess given therecent surgeryReport Dictated on Workstation: [id number] by: Garima Love: 04/28/2018 17:30Read by: Sofia PAETL: 04/28/2018 17:30 [facility] Culture Anaerobeon 8 Culture Anaerobe Culture Observations: No anaerobes isolatedSusceptibility Data: --- [facility] Comment on above: Performed By: #### C HARLAN ####[facility], [place] [address] Culture Wound Aerobic w/ Gra m Ston 03-18-2018 Culture Wound Aerobic w/ Gram St Specimen Comments: BoneCulture Observations: Rare colonies of normal skin dorinda (diphtheroids)Direct Exam: ---------No WBCs seenNo organisms seenSusceptibility Data: --- [facility] Comment on above: Order Comment: TULIO p erformed at additional charge whenindicated Performed By: #### C XWND ####[facility] [place] [address] Surgical Pathology Depar tmenton 03-18-2018 [facility] Surgical Pathology Department Name WILL JACINTO Pathologist: VIRGIL JIMENEZ, MDDate of Procedure: 03/18/2018Date Received: 03/18/2018Date Reported 03/29/2018Submitting Physician: IWONA NEWSOMEocation: [facility] Copy To/Referring/Attending:Gina GARNER MD Other External # [id number] FINAL DIAGNOSISBONE, RIGHT FOOT, EXCISION: --CHRONIC OSTEOMYELITIS Electronically Signed Out By VIRGIL JIMENEZ MD/[facility] HOSPITALjames the signature on this report, the individual or group listed as making theFinal Interpretation/Diagnosis certifies that they have reviewed this case. Clinical History:OsteomylitisSpec imens Submitted As:A: BONE RIGHT FOOT Other Case Numbers [id number] Description:Received in formalin, labeled with the patient's name and hospital number and"bone right foot", is a bone measuring 2.7 x 0.7 x 0.7 cm. Representativesections are submitted in 2 cassettes following decalcification.DJOSumma ry of Cassettes:Specimen Label SiteA 1 resection margin 2 representatived 018 Normal [facility] Comment on above: Performed By: #### U HCS ####[facility] Surgical Pathology [address] [place] [address] XR Chest Mobile 1 viewon XR Chest [...] mildcongestive heart failure/fluid overload.Report Dictated on Workstation: [id number] ated by: Nay Ovalles: 03/18/2018 14:29Read by: SERGIO OVALLES, MDDate: 03/18/2018 14:29 Normal [facility] Iron with TIBCon 03-16-2018 % Saturation 25 % Normal 16-46 [facility] Comment on above: Performed By: #### I ARMINDAC ####[place] [address] Iron 65 ug/dL Normal 50-170 [facility] Comment on above: Performed By: #### I ARMINDAC ####[place] [address] TIBC 258 ug/dL Normal 250-450 [facility] Comment on above: Performed By: #### I RONIBC ####[place] [address] MRI Low Ext RT Non-Jt wo con [...] 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.Report Dictated on Workstation: [id number] ated by: Rose GregoryOn: 03/16/2018 10:41Read by: EVELYNE RAYate: 03/16/2018 10:41 Normal [facility] Comment on above: Order Comment: CONTR AST PER RADIOLOGIST DISCRETION Occult Blood Stool 1-3on Occult Blood Normal NEGATIVE [facility] Comment on above: Order Comment: x1 Performed By: #### O CBLDST ####[place] [address] Occult Blood Negative Normal NEGATIVE [facility] Comment on above: Order Comment: x1 Performed By: #### O CBLDST ####[address] [address] XR Foot Right complete 3 plu s [...] soft tissue gas collection.Report Dictated on Workstation: [id number] laura by: Nay Muniz: 03/15/2018 23:44Read by: Sofia SEGURA: 03/15/2018 23:44 [facility] Comment on above: Order Comment: R/o O M Culture Anaerobeon 8 Culture Anaerobe Specimen Comments: RIGHT FOOT SOFT TISSCulture Exam: ---------1. anaerobic gram positive cocci Small numbers ofSusceptibility Data: --- [facility] Comment on above: Order Comment: AEROB IC/ANAEROBIC CULTURES OF RIGHT FOOT SOFT TISS Result Comment: (TULIO s not performed on anaerobes) Performed By: #### C HARLAN ####[facility], [place] [address] Culture Wound Aerobic w/ Gra m Stojermaine 02-04-2018 Culture Wound Aerobic w/ Gram St Specimen Comments: RIGHT FOOT SOFT TISSCulture Observations: Small numbers of mixed enteric dorinda and mixed skin dorinda- more than 3 organisms with none predominant.No Staphylococcus aureus, Pseudomonas aeruginosa or beta Streptococcus isolatedDirect Exam: ---------No WBCs seenNo organisms seenSusceptibility Data: --- Normal [facility] Comment on above: Order Comment: AEROB IC/ANAEROBIC CULTURES OF RIGHT FOOT SOFT TISS Performed By: #### C XWND ####[facility] [place] [address] MRI Low Ext RT Non-JT w/wo c [facility] 02-02-2018 MRI Low Ext [...] clinical concern of osteomyelitis.Report Dictated on Workstation: [id number] ated by: Irma Barragan: 02/03/2018 12:13Read by: Sofia STROUD: 02/03/2018 12:13 [facility] Comment on above: Order Comment: CONTR [...] d soft tissue swelling.Report Dictated on Workstation: [id number] ated by: Nay Muniz: 02/02/2018 15:32Read by: Sofia SEGURA: 02/02/2018 15:32 [facility] Comment on above: Order Comment: R/o O M Vital Signs Date Time Vital Sign Value Performing Clinician Facility 07-11-2025 00:48-0400 Diastolic blood pressure 86 mm[Hg] Hermes Issa MD Work Phone: [facility] [employer] 07-11-2025 00:48-0400 Heart rate 72 /min Hermes Issa MD Work Phone: [facility] [employer] 07-11-2025 00:48-0400 Respiratory rate 18 /min Hermes Issa MD Work Phone: [facility] [employer] 07-11-2025 00:48-0400 SaO2% (BldA) [Mass fraction] 93 % Hermes Issa MD Work Phone: [facility] [employer] 07-11-2025 00:48-0400 Systolic blood pressure 147 mm[Hg] Hermes Issa MD Work Phone: [facility] [employer] 07-10-2025 15:56-0400 Body height 167.6 cm Hermes Issa MD Work Phone: [facility] [employer] 07-10-2025 15:56-0400 Body mass index (BMI) [Ratio] 53.42 kg/m2 Hermes Issa MD Work Phone: [facility] [employer] 07-10-2025 15:56-0400 Body temperature 98.4 [degF] Hermes Issa MD Work Phone: [facility] [employer] 07-10-2025 15:56-0400 Body weight 150.14 kg Hermes Issa MD Work Phone: [facility] [employer] 06-07-2025 13:25-0400 Diastolic blood pressure 71 mm[Hg] Farhad Chavez MD Work Phone: [facility] [employer] 06-07-2025 13:25-0400 Heart rate 77 /min Farhad Chavez MD Work Phone: [facility] [employer] 06-07-2025 13:25-0400 Respiratory rate 18 /min Farhad Chavez MD Work Phone: [facility] [employer] 06-07-2025 13:25-0400 SaO2% (BldA) [Mass fraction] 95 % Farhad Chavez MD Work Phone: [facility] [employer] 06-07-2025 13:25-0400 Systolic blood pressure 143 mm[Hg] Farhad Chavez MD Work Phone: [facility] [employer] 06-07-2025 11:35-0400 Body temperature 97 [degF] Farhad Chavez MD Work Phone: [facility] [employer] 04-06-2025 08:50-0400 Body height 167.6 cm Gunner Stall PA-C Work Phone: [facility] [employer] 04-06-2025 08:50-0400 Body mass index (BMI) [Ratio] 48.1 kg/m2 Gunner Stall PA-C Work Phone: [facility] [employer] 04-06-2025 08:50-0400 Body weight 135.17 kg Gunner Stall PA-C Work Phone: [facility] [employer] 04-06-2025 08:50-0400 Diastolic blood pressure 72 mm[Hg] Gunner Stall PA-C Work Phone: [facility] [employer] 04-06-2025 08:50-0400 Heart rate 86 /min Gunner Stall PA-C Work Phone: [facility] [employer] 04-06-2025 08:50-0400 Systolic blood pressure 114 mm[Hg] Gunner Stall PA-C Work Phone: [facility] [employer] 02-01-2025 09:50-0400 Body height 167.6 cm [employer] DIRECTOR WOMEN - YARD ATTENDANT Work Phone: [facility] [employer] 02-01-2025 09:50-0400 Body mass index (BMI) [Ratio] 48.1 kg/m2 Alejandro [employer] DIRECTOR WOMEN - YARD ATTENDANT Work Phone: [facility] [employer] 02-01-2025 09:50-0400 Body temperature 97 [degF] [employer] DIRECTOR WOMEN - YARD ATTENDANT Work Phone: [employer] 02-01-2025 09:50-0400 Body weight 135.17 kg Alejandro [employer] DIRECTOR WOMEN - YARD ATTENDANT Work Phone: [employer] 02-01-2025 09:50-0400 Diastolic blood pressure 82 mm[Hg] [employer] DIRECTOR WOMEN - YARD ATTENDANT Work Phone: [facility] [employer] 02-01-2025 09:50-0400 Heart rate 76 /min Alejandro Mandel DIRECTOR WOMEN - YARD ATTENDANT Work Phone: [facility] [employer] 02-01-2025 09:50-0400 Respiratory rate 18 /min Alejandro Mandel DIRECTOR WOMEN - YARD ATTENDANT Work Phone: [facility] [employer] 02-01-2025 09:50-0400 SaO2% (BldA) [Mass fraction] 97 % Alejandro Mandel DIRECTOR WOMEN - YARD ATTENDANT Work Phone: [facility] [employer] 02-01-2025 09:50-0400 Systolic blood pressure 124 mm[Hg] Alejandro Mandel DIRECTOR WOMEN - YARD ATTENDANT Work Phone: [facility] [employer] 01-01-2025 11:26-0500 Body height 167.6 cm Margo Guerrero DIRECTOR WOMEN - YARD ATTENDANT Work Phone: [facility] [employer] 01-01-2025 11:26-0500 Body mass index (BMI) [Ratio] 48.1 kg/m2 Margo Guerrero DIRECTOR WOMEN - YARD ATTENDANT Work Phone: [facility] [employer] 01-01-2025 11:26-0500 Body weight 135.17 kg Margo Guerrero DIRECTOR WOMEN - YARD ATTENDANT Work Phone: [facility] [employer] 01-01-2025 11:26-0500 Diastolic blood pressure 62 mm[Hg] Margo Guerrero DIRECTOR WOMEN - YARD ATTENDANT Work Phone: [facility] [employer] 01-01-2025 11:26-0500 Heart rate 72 /min Margo Guerrero DIRECTOR WOMEN - YARD ATTENDANT Work Phone: [facility] [employer] 01-01-2025 11:26-0500 Systolic blood pressure 128 mm[Hg] Margoheavenly Guerrero DIRECTOR WOMEN - YARD ATTENDANT Work Phone: [facility] [employer] 12-21-2024 08:04-0500 Body height 167.6 cm Wanda Johnson DIRECTOR WOMEN - YARD ATTENDANT Work Phone: [facility] [employer] 12-21-2024 08:04-0500 Body mass index (BMI) [Ratio] 51.65 kg/m2 Wanda Johnson DIRECTOR WOMEN - YARD ATTENDANT Work Phone: [employer] 12-21-2024 08:04-0500 Body weight 145.15 kg Wanda Johnson DIRECTOR WOMEN - YARD ATTENDANT Work Phone: [employer] 12-21-2024 08:04-0500 Diastolic blood pressure 69 mm[Hg] Wanda Johnson DIRECTOR WOMEN - YARD ATTENDANT Work Phone: [facility] 12-21-2024 08:04-0500 Heart rate 78 /min Wanda Johnson DIRECTOR WOMEN - YARD ATTENDANT Work Phone: [employer] 12-21-2024 08:04-0500 Systolic blood pressure 137 mm[Hg] Wanda Johnson DIRECTOR WOMEN - YARD ATTENDANT Work Phone: [employer] 12-07-2024 12:53-0500 Body temperature 97.59 [degF] Lilo Rizo MD Work Phone: [employer] 12-07-2024 12:53-0500 Diastolic blood pressure 80 mm[Hg] Lilo Rizo MD Work Phone: [facility] [facility] [employer] 12-07-2024 12:53-0500 Heart rate 82 /min Lilo Rizo MD Work Phone: [facility] [facility] [employer] 12-07-2024 12:53-0500 Systolic blood pressure 139 mm[Hg] Lilo Rizo MD Work Phone: [facility] [employer] 11-14-2024 10:09-0500 Body height 167.6 cm Asuncion Black DIRECTOR WOMEN - YARD ATTENDANT Work Phone: [facility] 11-14-2024 10:09-0500 Body temperature 97.2 [degF] Asuncion Black DIRECTOR WOMEN - YARD ATTENDANT Work Phone: [facility] 11-14-2024 10:09-0500 Diastolic blood pressure 79 mm[Hg] Asuncion Black DIRECTOR WOMEN - YARD ATTENDANT Work Phone: [employer] 11-14-2024 10:09-0500 Heart rate 83 /min Asuncion Black DIRECTOR WOMEN - YARD ATTENDANT Work Phone: [employer] 11-14-2024 10:09-0500 Systolic blood pressure 140 mm[Hg] Asuncion Valencia DIRECTOR WOMEN - YARD ATTENDANT Work Phone: [employer] 11-12-2024 22:42-0500 Body temperature 98.6 [degF] Sam Escobar MD Work Phone: [employer] 11-12-2024 22:42-0500 Diastolic blood pressure 68 mm[Hg] Sam Escobar MD Work Phone: [facility] [facility] [employer] 11-12-2024 22:42-0500 Heart rate 86 /min Sam Escobar MD Work Phone: [facility] 11-12-2024 22:42-0500 Respiratory rate 16 /min Sam Escobar MD Work Phone: [facility] 11-12-2024 22:42-0500 SaO2% (BldA) [Mass fraction] 96 % Sam Escobar MD Work Phone: [employer] 11-12-2024 22:42-0500 Systolic blood pressure 144 mm[Hg] Sam Escobar MD Work Phone: [facility] [facility] [employer] 11-10-2024 11:07-0500 Body height 167.6 cm Asuncion Erik DIRECTOR WOMEN - YARD ATTENDANT Work Phone: [facility] [facility] [employer] 11-10-2024 11:07-0500 Body temperature 97.3 [degF] Asuncion Valencia DIRECTOR WOMEN - YARD ATTENDANT Work Phone: [facility] [facility] [employer] 11-10-2024 11:07-0500 Diastolic blood pressure 81 mm[Hg] Asuncion Valencia DIRECTOR WOMEN - YARD ATTENDANT Work Phone: [facility] [facility] [employer] 11-10-2024 11:07-0500 Heart rate 83 /min Asuncion Valencia DIRECTOR WOMEN - YARD ATTENDANT Work Phone: [facility] 11-10-2024 11:07-0500 Systolic blood pressure 142 mm[Hg] Asuncion Valencia DIRECTOR WOMEN - YARD ATTENDANT Work Phone: [facility] [facility] [employer] 10-24-2024 14:17-0500 Body temperature 96.91 [degF] Vicente Swartz MD Work Phone: [employer] 10-24-2024 13:39-0500 Diastolic blood pressure 83 mm[Hg] Vicente Swartz MD Work Phone: [employer] 10-24-2024 13:39-0500 Heart rate 64 /min Vicente Swartz MD Work Phone: [facility] [facility] [employer] 10-24-2024 13:39-0500 Respiratory rate 16 /min Vicente Swartz MD Work Phone: [facility] [facility] [employer] 10-24-2024 13:39-0500 SaO2% (BldA) [Mass fraction] 98 % Vicente Swartz MD Work Phone: [facility] 10-24-2024 13:39-0500 Systolic blood pressure 123 mm[Hg] Vicente Swartz MD Work Phone: [facility] [employer] 10-23-2024 13:55-0500 SaO2% (BldA) [Mass fraction] 93 % Dontrell Glozman DO Work Phone: [facility] [employer] 10-23-2024 08:14-0500 Body temperature 97.7 [degF] Dontrell Glozman DO Work Phone: [facility] [employer] 10-23-2024 08:14-0500 Diastolic blood pressure 54 mm[Hg] Dontrell Glozman DO Work Phone: [facility] [employer] 10-23-2024 08:14-0500 Heart rate 85 /min Dontrell Glozman DO Work Phone: [facility] [employer] 10-23-2024 08:14-0500 Respiratory rate 20 /min Dontrell Glozman DO Work Phone: [employer] 10-23-2024 08:14-0500 Systolic blood pressure 127 mm[Hg] Dontrell Glozman DO Work Phone: [facility] [employer] 10-22-2024 13:16-0500 Body height 167.6 cm Dontrell Glozman DO Work Phone: [facility] [employer] 10-18-2024 21:04-0500 Body mass index (BMI) [Ratio] 51.65 kg/m2 Dontrell Woodall DO Work Phone: [employer] 10-18-2024 21:04-0500 Body weight 145.15 kg Dontrell Woodall DO Work Phone: [facility] [employer] 02-11-2024 09:55-0400 Body height 167.6 cm Herber Ramos DIRECTOR WOMEN - YARD ATTENDANT Work Phone: [facility] [employer] 02-11-2024 09:55-0400 Body mass index (BMI) [Ratio] 46.83 kg/m2 Herber Ramos DIRECTOR WOMEN - YARD ATTENDANT Work Phone: [facility] [employer] 02-11-2024 09:55-0400 Body weight 131.54 kg Herber Ramos DIRECTOR WOMEN - YARD ATTENDANT Work Phone: [facility] [employer] 02-11-2024 09:55-0400 Diastolic blood pressure 78 mm[Hg] Herber Ramos DIRECTOR WOMEN - YARD ATTENDANT Work Phone: [facility] [employer] 02-11-2024 09:55-0400 Heart rate 79 /min Herber Ramos DIRECTOR WOMEN - YARD ATTENDANT Work Phone: [employer] 02-11-2024 09:55-0400 Respiratory rate 14 /min Herber Ramos APRN - YARD ATTENDANT Work Phone: [facility] [employer] 02-11-2024 09:55-0400 SaO2% (BldA) [Mass fraction] 99 % Herber Ramos DIRECTOR WOMEN - YARD ATTENDANT Work Phone: [facility] [employer] Comment on above: 02-11-2024 09:55-0400 Systolic blood pressure 131 mm[Hg] Herber Ramos DIRECTOR WOMEN - YARD ATTENDANT Work Phone: [facility] [employer] 01-27-2024 18:55-0400 Body height 167.6 cm Fermin Nesheim DO Work Phone: [facility] [employer] 01-27-2024 18:55-0400 Body mass index (BMI) [Ratio] 46.81 kg/m2 Fermin Nesheim DO Work Phone: [facility] [employer] 01-27-2024 18:55-0400 Body temperature 97.59 [degF] Fermin Nesheim DO Work Phone: [facility] 01-27-2024 18:55-0400 Body weight 131.54 kg Fermin Nesheim DO Work Phone: [facility] 01-27-2024 18:55-0400 Diastolic blood pressure 63 mm[Hg] Fermin Nesheim DO Work Phone: [facility] 01-27-2024 18:55-0400 Heart rate 78 /min Fermin Nesheim DO Work Phone: [facility] 01-27-2024 18:55-0400 Respiratory rate 18 /min Fermin Nesheim DO Work Phone: [facility] 01-27-2024 18:55-0400 SaO2% (BldA) [Mass fraction] 99 % Fermin Nesheim DO [facility]: [facility] 01-27-2024 18:55-0400 Systolic blood pressure 155 mm[Hg] Fermin Nesheim DO Work Phone: [facility] 01-26-2024 21:29-0400 Body height 167.6 cm Art Zeng DO Work Phone: [facility] 01-26-2024 21:29-0400 Body mass index (BMI) [Ratio] 46.81 kg/m2 Art Zeng DO Work Phone: [facility] 01-26-2024 21:29-0400 Body weight 131.54 kg Art Zeng DO Work Phone: [facility] 01-26-2024 21:28-0400 Body temperature 97.9 [degF] Art Azucena DO Work Phone: [facility] 01-26-2024 21:28-0400 Diastolic blood pressure 63 mm[Hg] Art Azucena DO Work Phone: [facility] 01-26-2024 21:28-0400 Heart rate 83 /min Art Azucena DO Work Phone: [facility] 01-26-2024 21:28-0400 Respiratory rate 16 /min Art Zeng DO Work Phone: [employer] 01-26-2024 21:28-0400 SaO2% (BldA) [Mass fraction] 100 % Art Zeng DO Work Phone: [facility] 01-26-2024 21:28-0400 Systolic blood pressure 124 mm[Hg] Art Zeng DO Work Phone: [employer] 01-22-2024 07:15-0400 Body temperature 97.59 [degF] Jaquan Morris DO Work Phone: [facility] 01-22-2024 07:15-0400 Diastolic blood pressure 51 mm[Hg] Jaquan Roldanchke DO Work Phone: [employer] 01-22-2024 07:15-0400 Heart rate 94 /min Jaquan Roldanchke DO Work Phone: [employer] 01-22-2024 07:15-0400 Respiratory rate 20 /min Jaquan Romoke DO Work Phone: [facility] 01-22-2024 07:15-0400 SaO2% (BldA) [Mass fraction] 97 % Jaquan Roldanchke DO Work Phone: [facility] 01-22-2024 07:15-0400 Systolic blood pressure 160 mm[Hg] Jaquan Roldanchke DO Work Phone: [employer] 12-29-2023 08:04-0500 Diastolic blood pressure 53 mm[Hg] Edwin Bustos MD Work Phone: [employer] 12-29-2023 08:04-0500 Heart rate 83 /min Edwin Bustos MD Work Phone: [employer] 12-29-2023 08:04-0500 Respiratory rate 17 /min Edwin Bustos MD Work Phone: [employer] 12-29-2023 08:04-0500 SaO2% (BldA) [Mass fraction] 100 % Edwin Bustos MD Work Phone: [facility] [employer] 12-29-2023 08:04-0500 Systolic blood pressure 132 mm[Hg] Edwin Bustos MD Work Phone: [facility] [employer] 12-28-2023 23:14-0500 Body height 167.6 cm Edwin Bustos MD Work Phone: [facility] [employer] 12-28-2023 23:14-0500 Body mass index (BMI) [Ratio] 52.29 kg/m2 Edwin Bustos MD Work Phone: [employer] 12-28-2023 23:14-0500 Body temperature 97.59 [degF] Edwin Bustos MD Work Phone: [facility] [employer] 12-28-2023 23:14-0500 Body weight 146.97 kg Edwin Bustos MD Work Phone: [facility] [employer] 12-09-2023 10:05-0500 Diastolic blood pressure 63 mm[Hg] Caridad Evans MD Work Phone: [employer] 12-09-2023 10:05-0500 Heart rate 78 /min Caridad Evans MD Work Phone: [facility] [employer] 12-09-2023 10:05-0500 Respiratory rate 23 /min Caridad Evans MD Work Phone: [facility] [employer] 12-09-2023 10:05-0500 SaO2% (BldA) [Mass fraction] 97 % Caridad Evans MD Work Phone: [employer] 12-09-2023 10:05-0500 Systolic blood pressure 159 mm[Hg] Caridad Evans MD Work Phone: [facility] [employer] 12-09-2023 05:22-0500 Body mass index (BMI) [Ratio] 51.7 kg/m2 Caridad Evans MD Work Phone: [facility] [employer] 12-09-2023 05:22-0500 Body temperature 98.4 [degF] Caridad Evans MD Work Phone: [facility] [employer] 12-09-2023 05:22-0500 Body weight 145.29 kg Cairdad Evans MD Work Phone: [facility] [employer] 10-16-2023 21:27-0500 Body temperature 96.91 [degF] Rosaura Mustafa DO Work Phone: [facility] [employer] 10-16-2023 21:27-0500 Diastolic blood pressure 59 mm[Hg] Rosaura Mustafa DO Work Phone: [facility] [employer] 10-16-2023 21:27-0500 Heart rate 76 /min Rosaura Mustafa DO Work Phone: [facility] [employer] 10-16-2023 21:27-0500 Respiratory rate 20 /min Rosaura Mustafa DO Work Phone: [facility] [employer] 10-16-2023 21:27-0500 SaO2% (BldA) [Mass fraction] 94 % Rosaura Mustafa DO Work Phone: [facility] [employer] 10-16-2023 21:27-0500 Systolic blood pressure 100 mm[Hg] Rosaura Mustafa DO Work Phone: [facility] [employer] 10-11-2023 11:21-0500 Body height 167.6 cm Rosaura Mustafa DO Work Phone: [facility] [employer] 10-07-2023 16:06-0500 Body mass index (BMI) [Ratio] 51 kg/m2 Rosaura Mustafa DO Work Phone: [employer] 10-07-2023 16:06-0500 Body weight 143.34 kg Rosaura Mustafa DO Work Phone: [facility] [employer] 08-19-2023 19:25-0400 Body temperature 97.3 [degF] Aaron Burgos DO Work Phone: [facility] [employer] 08-19-2023 19:25-0400 Diastolic blood pressure 60 mm[Hg] Aaron Gombash DO Work Phone: [facility] 08-19-2023 19:25-0400 Heart rate 86 /min Aaron Gombash DO Work Phone: [facility] 08-19-2023 19:25-0400 Respiratory rate 18 /min Aaron Gombash DO Work Phone: [facility] 08-19-2023 19:25-0400 SaO2% (BldA) [Mass fraction] 95 % Aaron Gombash DO Work Phone: [facility] 08-19-2023 19:25-0400 Systolic blood pressure 120 mm[Hg] Aaron Gombash DO Work Phone: [facility] 08-17-2023 12:17-0400 Body height 167.6 cm Aaron Gombash DO Work Phone: [facility] 08-17-2023 12:17-0400 Body mass index (BMI) [Ratio] 54.72 kg/m2 Aaron Gombash DO Work Phone: [facility] 08-17-2023 12:17-0400 Body weight 153.77 kg Aaron Gombash DO Work Phone: [facility] 08-08-2023 13:35-0400 Diastolic blood pressure 63 mm[Hg] Gayle Trevizo MD Work Phone: [facility] 08-08-2023 13:35-0400 Heart rate 100 /min Gayle Trevizo MD Work Phone: [facility] 08-08-2023 13:35-0400 Respiratory rate 20 /min Gayle Trevizo MD Work Phone: [facility] 08-08-2023 13:35-0400 SaO2% (BldA) [Mass fraction] 93 % Gayle Trevizo MD Work Phone: [facility] 08-08-2023 13:35-0400 Systolic blood pressure 122 mm[Hg] Gayle Trevizo MD Work Phone: [facility] 08-08-2023 06:36-0400 Body height 167.6 cm Gayle Trevizo MD Work Phone: [facility] 08-08-2023 06:36-0400 Body mass index (BMI) [Ratio] 54.72 kg/m2 Gayle Trevizo MD Work Phone: [facility] 08-08-2023 06:36-0400 Body temperature 98.29 [degF] Gayle Trevizo MD Work Phone: [facility] 08-08-2023 06:36-0400 Body weight 153.77 kg Gayle Trevizo MD Work Phone: [facility] 07-01-2023 11:21-0400 Body temperature 97.59 [degF] Rosaura Mustafa DO Work Phone: [facility] 07-01-2023 11:21-0400 Diastolic blood pressure 79 mm[Hg] Rosaura Mustafa DO Work Phone: [facility] 07-01-2023 11:21-0400 Heart rate 83 /min Rosauragabe Mustafa DO Work Phone: [facility] 07-01-2023 11:21-0400 Respiratory rate 20 /min Rosauragabe Mustafa DO Work Phone: [facility] 07-01-2023 11:21-0400 SaO2% (BldA) [Mass fraction] 94 % Rosaura Mustafa DO Work Phone: [facility] 07-01-2023 11:21-0400 Systolic blood pressure 133 mm[Hg] Rosauragabe Mustafa DO Work Phone: [facility] 07-01-2023 03:09-0400 Body mass index (BMI) [Ratio] 53.2 kg/m2 Rosaura Mustafa DO Work Phone: [facility] 07-01-2023 03:09-0400 Body weight 149.51 kg Rosaura Mustafa DO Work Phone: [facility] 03-08-2023 19:30-0400 Body temperature 98.49 [degF] Karlos Irena DO Work Phone: [facility] 03-08-2023 19:30-0400 Diastolic blood pressure 62 mm[Hg] Karlos Voll DO Work Phone: [facility] 03-08-2023 19:30-0400 Heart rate 82 /min Karlos Voll DO Work Phone: [facility] 03-08-2023 19:30-0400 Respiratory rate 18 /min Karlos Voll DO Work Phone: [facility] 03-08-2023 19:30-0400 SaO2% (BldA) [Mass fraction] 98 % Karlos Voll DO Work Phone: [facility] 03-08-2023 19:30-0400 Systolic blood pressure 140 mm[Hg] Karlos Voll DO Work Phone: [facility] 03-08-2023 12:54-0400 Body mass index (BMI) [Ratio] 54.07 kg/m2 Karlos Voll DO Work Phone: [facility] 03-08-2023 12:54-0400 Body weight 151.96 kg Karlos Voll DO Work Phone: [facility] 02-09-2023 10:39-0400 Diastolic blood pressure 75 mm[Hg] Geronimo Lee MD Work Phone: [employer] 02-09-2023 10:39-0400 Systolic blood pressure 137 mm[Hg] Geronimo Lee MD Work Phone: [facility] [employer] 12-08-2020 19:11-0500 BP Diastolic 74 mm[Hg] [facility] [place] 12-08-2020 19:11-0500 BP Systolic 151 mm[Hg] [facility] [place] 12-08-2020 19:11-0500 Pulse (Heart Rate) 70 /min [facility] [place] 12-08-2020 19:11-0500 Pulse Oximetry 98 % [facility] [place] 12-08-2020 19:11-0500 Respiratory Rate 15 /min [facility] [place] 12-08-2020 15:12-0500 Body Temperature 98.71 [degF] Art Zeng [facility] [place] 12-08-2020 15:12-0500 Height 167.6 cm Art Carrizales [facility], [place] 11-28-2020 14:37-0500 Body Temperature 97.81 [degF] Joel Nelosn [facility] [place] 11-28-2020 14:37-0500 BP Diastolic 79 mm[Hg] Joel [facility], [place] 11-28-2020 14:37-0500 BP Systolic 128 mm[Hg] Joel [facility] 11-28-2020 14:37-0500 Pulse (Heart Rate) 75 /min Joel Omar [facility] [place] 11-28-2020 14:37-0500 Pulse Oximetry 95 % Joel [facility] 11-28-2020 14:37-0500 Respiratory Rate 18 /min Joel [facility] 11-27-2020 15:57-0500 Height 167.6 cm Joel [facility] 11-27-2020 06:28-0500 BMI (Body Mass Index) 51.21 kg/m2 Joel [facility] 11-27-2020 06:28-0500 Body weight 143.93 kg Joel Omar [facility] [place] 09-30-2020 14:21-0500 Body Temperature 98.71 [degF] Art Zeng [facility] [place] 09-30-2020 14:21-0500 BP Diastolic 61 mm[Hg[facility] [place] 09-30-2020 14:21-0500 BP Systolic 115 mm[Hg] [facility] [place] 09-30-2020 14:21-0500 Pulse (Heart Rate) 107 /min [facility] [place] 09-30-2020 14:21-0500 Pulse Oximetry 97 % [facility] [place] 09-30-2020 14:21-0500 Respiratory Rate 18 /min Art Zeng [facility] [place] 09-30-2020 05:45-0500 BMI (Body Mass Index) 53.34 kg/m2 Art Carrizales [facility] 09-30-2020 05:45-0500 Body weight 149.91 kg Art Carrizales [facility] 09-26-2020 13:28-0500 Height 167.6 cm Art Carrizales [facility] 01-02-2020 12:22-0500 Body Temperature 96.3 [degF] Justin Walsh [facility] [place] 01-02-2020 12:22-0500 BP Diastolic 80 mm[Hg] Justin Walsh [facility] [place] 01-02-2020 12:22-0500 BP Systolic 142 mm[Hg] Justin Walsh [facility] [place] 01-02-2020 12:22-0500 Pulse (Heart Rate) 115 /min Justin Walsh [facility] [place] 01-02-2020 12:22-0500 Pulse Oximetry 95 % Justin Walsh [facility] [place] 01-02-2020 12:22-0500 Respiratory Rate 16 /min Justin Walsh [facility] [place] 01-02-2020 12:15-0500 BMI (Body Mass Index) 54.88 kg/m2 Justin Walsh [facility] [place] 01-02-2020 12:15-0500 Body weight 154.22 kg Justincarolyn Walsh [place], [place] Comment on above: verbal, arrived in own WC, did not know exact weight of 01-02-2020 12:15-0500 Height 167.6 cm Justin Walsh [facility] [place] 06-27-2019 14:00-0400 BP Diastolic 74 mm[Hg] [facility] [place] 06-27-2019 14:00-0400 BP Systolic 123 mm[Hg] Davie [facility], [place] 06-27-2019 02:01-0400 Pulse (Heart Rate) 90 /min [facility] [place] 06-27-2019 02:01-0400 Pulse Oximetry 100 % Davie [facility], [place] 06-27-2019 02:01-0400 Respiratory Rate 17 /min Davie [place] 06-26-2019 21:32-0400 BMI (Body Mass Index) 62.46 kg/m2 Dav[place] 06-26-2019 21:32-0400 Body Temperature 98.01 [degF] [place] 06-26-2019 21:32-0400 Body weight 175.54 kg [place], [place] 06-26-2019 21:32-0400 Height 167.6 cm [place] 06-20-2019 15:37-0400 Body Temperature 100.09 [degF] [place], [place] 06-20-2019 15:37-0400 BP Diastolic 76 mm[Hg] [place] 06-20-2019 15:37-0400 BP Systolic 117 mm[Hg] [place] 06-20-2019 15:37-0400 Pulse (Heart Rate) 107 /min [place] 06-20-2019 15:37-0400 Pulse Oximetry 94 % [place] 06-20-2019 15:37-0400 Respiratory Rate 22 /min [place] 06-19-2019 06:11-0400 BMI (Body Mass Index) 56.31 kg/m2 [place] 06-19-2019 06:11-0400 Body weight 158.26 kg [place] 06-14-2019 13:43-0400 Height 167.6 cm [place] Encounters Encounter Date Encounter Type Care Provider Facility Start: 07-12-2025 ambulatory Jared vides:[facility] Start: 07-10-2025 End: 07-11-2025 Emergency department patient visit Hermes Issa MD Work Phone: [facility] Comment on above: Acute nonintractable headache, unspecified headache type (Primary Dx); Nausea; Acute cystitis without hematuria; Hyperglycemia Start: 07-10-2025 ambulatory Jared LEON Faci lity:[facility] Start: 07-06-2025 ambulatory Jared LEON Faci lity:[facility] Start: 07-04-2025 End: 07-11-2025 Telephone encounter Maria Eugenia Danielle DIRECTOR WOMEN - PNEUMATIC RIVETER Work Phone: [facility] Comment on above: Diabetes (BGL) Start: 06-27-2025 End: 07-04-2025 Telephone encounter Maria Eugenia Santos DIRECTOR WOMEN - PNEUMATIC RIVETER Work Phone: [facility] Comment on above: Diabetes (BGL) Start: 06-19-2025 End: 06-26-2025 Telephone encounter Maria Eugenia Santos DIRECTOR WOMEN - PNEUMATIC RIVETER Work Phone: [facility] Comment on above: Diabetes (BGL) Start: 06-11-2025 ambulatory Jared Guzman EDWARD Faci lity:[facility] Start: 06-07-2025 End: 06-11-2025 Telephone encounter Gunner Stall PA-C Work Phone: [facility] Comment on above: Diabetes (BGL) Start: 06-07-2025 End: 06-07-2025 ambulatory FARHAD CHAVEZ [facility] Start: 06-07-2025 End: 06-07-2025 Subsequent hospital visit by physician Farhad Chavez MD Work Phone: [facility] Endoscopy Start: 05-31-2025 End: 06-01-2025 Telephone encounter Gunner Stall PA-C Work Phone: [facility] Comment on above: Diabetes (BGL) Care Coordination (E GD Colon reminder call) Start: 05-14-2025 End: 05-18-2025 Telephone encounter Gunner Stall PA-C Work Phone: [facility] Comment on above: Advice Only (/) Start: 05-10-2025 ambulatory Jared Guzman EDWARD Faci lity:[facility] Start: 05-07-2025 End: 05-07-2025 Telephone encounter Gunner Stall PA-C Work Phone: [facility] Comment on above: Diabetes (BGL) Start: 04-30-2025 End: 05-01-2025 Telephone encounter Kaushal Schultz PA-C Work Phone: [facility] Comment on above: Diabetes (BGL) Start: 04-17-2025 End: 04-17-2025 Telephone encounter Kaushal Schultz PA-C Work Phone: [facility] Comment on above: Diabetes Start: 04-06-2025 End: 04-06-2025 ambulatory KAUSHAL SCHULTZ [facility] Start: 04-06-2025 End: 04-06-2025 Office outpatient visit 25 minutes Kaushal Schultz PA-C Work Phone: [facility] Comment on above: Type 2 diabetes [...] End: 05-23-2025 Telephone encounter Lisa Lopes DIRECTOR WOMEN - YARD ATTENDANT Work Phone: [facility] Comment on above: Missed Appointment ( Reschedule ); Diabetes (BGL) Start: 02-27-2025 End: 02-28-2025 Telephone encounter Lisa Lopes DIRECTOR WOMEN - YARD ATTENDANT Work Phone: [facility] Comment on above: Diabetes (BGL) Start: 02-26-2025 End: 02-26-2025 ambulatory Jared Guzman [facility] Work Phone: Start: 02-26-2025 End: 02-26-2025 Departed Referred Jared Guzman [facility] Start: 02-26-2025 Registered Referred Jared Montoya [employer] Start: 02-26-2025 End: 02-26-2025 ambulatory Jared Esperanzalola LEON Facility:[facility] Start: 02-15-2025 End: 02-16-2025 Telephone encounter Margo Guerrero APRN - YARD ATTENDANT Work Phone: [facility] Comment on above: Diabetes (BGL) Start: 02-09-2025 End: 02-09-2025 Subsequent hospital visit by physician Alejandro Mandel APRN - YARD ATTENDANT Work Phone: [facility] Vascular Lab Comment on above: PAD (peripheral oh ry disease) (HCC) Start: 02-09-2025 End: 02-09-2025 ambulatory ALEJANDRO MANDEL [facility] [employer] [facility] Start: 02-08-2025 End: 02-08-2025 Telephone encounter Herber Ramos APRN - YARD ATTENDANT Work Phone: [facility] Lung Nodule [facility] Comment on above: Results (CT chest wo IV contrast ) Start: 02-07-2025 End: 02-08-2025 Telephone encounter Margo Guerrero APRN - YARD ATTENDANT Work Phone: [facility] Comment on above: Diabetes (BGL) Start: 02-07-2025 End: 02-07-2025 ambulatory Jared LEON [facility] Work Phone: Start: 02-07-2025 End: 02-07-2025 Departed Referred Jared MUNOZ Start: 02-07-2025 End: 02-07-2025 ambulatory Jared Linnchad LEON Facility:[facility] Start: 02-01-2025 End: 02-01-2025 ambulatory ALEJANDRO [employer] [facility] Start: 02-01-2025 End: 02-01-2025 Office outpatient new 30 minutes Alejandro Mandel DIRECTOR WOMEN - YARD ATTENDANT Work Phone: [facility] Vascular Surgery [facility] Comment on above: PAD (peripheral oh ry disease) (HCC) (Primary Dx); Hx of AKA (above knee amputation), right (HCC); Lymphedema of left leg; Morbid obesity (HCC) Start: 01-29-2025 End: 01-31-2025 Telephone encounter Margo Guerrero DIRECTOR WOMEN - YARD ATTENDANT Work Phone: [facility] Comment on above: Diabetes (BGL) Start: 01-15-2025 End: 01-22-2025 Telephone encounter Margo Guerrero DIRECTOR WOMEN - YARD ATTENDANT Work Phone: [facility] Comment on above: Diabetes (BGL) Start: 01-01-2025 End: 01-02-2025 Telephone encounter Margo Guerrero DIRECTOR WOMEN - YARD ATTENDANT Work Phone: [facility] Comment on above: Other (Lab results/B GL) Start: 01-01-2025 End: 01-01-2025 ambulatory MARGO GUERRERO [facility] Start: 01-01-2025 End: 01-01-2025 Office outpatient visit 25 minutes Margo Guerrero DIRECTOR WOMEN - YARD ATTENDANT Work Phone: [facility] Comment on above: Type 2 diabetes lee itus with hyperglycemia, with long-term current use of insulin ([facility]) (Primary Dx); Type 2 diabetes mellitus with diabetic autonomic neuropathy, with long-term current use of insulin ([facility]); Microalbuminuria; Essential hypertension; Mixed hyperlipidemia; Class 3 severe obesity due to excess calories with serious comorbidity and body mass index (BMI) of 45.0 to 49.9 in adult ([facility]) Start: 12-27-2024 End: 12-27-2024 ambulatory Jared LEON [facility] Work Phone: Start: 12-27-2024 End: 12-27-2024 Departed Referred Jared Guzman [facility] Start: 12-27-2024 End: 12-27-2024 ambulatory Jared LEON Facility:[facility] Start: 12-21-2024 End: 12-21-2024 Office outpatient new 45 minutes Wanda Johnson DIRECTOR WOMEN - YARD ATTENDANT Work Phone: [facility] Gastroenterology [facility] Comment on above: Fecal occult blood t est positive (Primary Dx); History of anemia; Calculus of gallbladder without cholecystitis without obstruction; BMI 50.0-59.9, adult (HCC) Start: 12-21-2024 End: 12-21-2024 ambulatory JARED STUARTLOLA [facility] Start: 12-20-2024 End: 12-26-2024 Telephone encounter Margo Sylvester CNP Work Phone: [facility] Comment on above: Diabetes (BGL) Start: 12-07-2024 End: 12-07-2024 Office outpatient visit 25 minutes Lilo Rizo MD Work Phone: [facility] Comment on above: Cholecystitis (Prima ry Dx); Morbid obesity (HCC); Class 3 severe obesity with serious comorbidity and body mass index (BMI) of 50.0 to 59.9 in adult, unspecified obesity type (HCC) Start: 12-07-2024 End: 12-07-2024 ambulatory LILO RIZO [facility] Start: 12-05-2024 End: 12-05-2024 ambulatory Jared Guzman EDWARD [facility] Work Phone: Start: 12-05-2024 End: 12-05-2024 Departed Referred Jared Guzman -[place] [employer] Start: 12-05-2024 Registered Referred aJred Guzman - [place] [employer] Start: 12-05-2024 End: 12-05-2024 ambulatory Jared LEON Facility:[facility] Start: 11-30-2024 End: 12-01-2024 ambulatory JARED GUZMAN [facility] Start: 11-30-2024 Registered Referred Jared Linnchad - [place] [employer] Start: 11-22-2024 End: 11-22-2024 Telephone encounter Margo Sylvester CNP Work Phone: [facility] Start: 11-21-2024 End: 11-29-2024 Telephone encounter Margo Sylvester CNP Work Phone: [facility] Comment on above: Diabetes (BGL) Start: 11-15-2024 End: 11-20-2024 Telephone encounter Margo Guerrero DIRECTOR WOMEN - YARD ATTENDANT Work Phone: [facility] Comment on above: Diabetes (BGL) Start: 11-14-2024 End: 11-14-2024 Office outpatient visit 10 minutes Asuncion Valencia DIRECTOR WOMEN - YARD ATTENDANT Work Phone: [facility] Comment on above: Cholecystitis (Prima ry Dx) Start: 11-14-2024 End: 11-14-2024 ambulatory [facility] Start: 11-13-2024 End: 11-14-2024 Telephone encounter Josie Powell RN [facility] Lung No d[facility] Comment on above: Care Coordination (E D Nuance Lung Nodule ) Start: 11-12-2024 End: 11-13-2024 Emergency department patient visit Sam Escobar MD Work Phone: [facility] Comment on above: History of cholecyst itis (Primary Dx) Start: 11-10-2024 End: 11-10-2024 ambulatory [facility] Start: 11-10-2024 End: 11-10-2024 Office outpatient visit 15 minutes Asuncion Valencia DIRECTOR WOMEN - YARD ATTENDANT Work Phone: [facility] Comment on above: Cholecystitis (Prima ry Dx) Start: 11-10-2024 End: 11-10-2024 Departed Referred Jared MUNOZ Start: 11-10-2024 End: 11-10-2024 ambulatory Jared LEON Facility:[facility] Start: 10-30-2024 End: 10-30-2024 Telephone encounter Анна Mcmahon DIRECTOR WOMEN - YARD ATTENDANT Work Phone: [facility] Comment on above: Diabetes (BGL) Start: 10-30-2024 End: 10-30-2024 Departed Referred Jared P[place]ton [place] [employer] Start: 10-30-2024 End: 10-30-2024 ambulatory Jared LEON Facility:[facility] Start: 10-24-2024 End: 10-24-2024 Emergency department patient visit Vicente Swartz MD Work Phone: [facility] Comment on above: Hypoglycemic episode in patient with diabetes mellitus (HCC) (Primary Dx) Start: 10-19-2024 End: 10-20-2024 Telephone encounter Lisa Lopes DIRECTOR WOMEN - YARD ATTENDANT Work Phone: [facility] Start: 10-18-2024 End: 10-23-2024 Evaluation and management of inpatient Dontrell Woodall DO Work Phone: [facility] Medical Surgical Unit MSU 4S Comment on above: Acute cholecystitis (Primary Dx) Start: 09-22-2024 End: 09-22-2024 Departed Referred Jared Guzman -[facility] Start: 09-22-2024 End: 09-22-2024 ambulatory Jared LEON Facility:[facility] Start: 09-19-2024 End: 09-20-2024 Telephone encounter Geronimo Lee MD Work Phone: [facility] Comment on above: Diabetes (BGL) Start: 09-12-2024 End: 09-12-2024 ambulatory Jared LEON Facility:[facility] Start: 09-11-2024 End: 09-12-2024 Telephone encounter Geronimo Lee MD Work Phone: [facility] Comment on above: Diabetes (BGL) Start: 09-11-2024 End: 09-11-2024 ambulatory Jared LEON Facility:[facility] Start: 08-08-2024 End: 08-09-2024 Telephone encounter Geronimo Lee MD Work Phone: [facility] Comment on above: Diabetes (BGL) Start: 08-03-2024 End: 08-08-2024 Telephone encounter Geronimo Lee MD Work Phone: [facility] Comment on above: Diabetes (BGL) Start: 08-02-2024 End: 08-02-2024 ambulatory Jared LEON Facility:[facility] Start: 07-17-2024 End: 07-18-2024 Telephone encounter Geronimo Lee MD Work Phone: [facility] Comment on above: Diabetes (BGL) Start: 07-17-2024 ambulatory Jared Karely Chung lity:[facility] Start: 05-02-2024 End: 05-02-2024 Telephone encounter Ryan Wyatt MA [facility] Endocrinology Start: 02-22-2024 Telephone encounter Geronimo ryan MD Work Phone: [facility] Endocrinology Comment on above: Diabetes (BGL) Start: 02-11-2024 End: 05-12-2024 Transcribe Orders Herber NICE Work Phone: [facility] Central Scheduling Comment on above: Solitary pulmonary n odule (Primary Dx) Start: 02-11-2024 End: 02-11-2024 Office outpatient visit 15 minutes Herber NICE Work Phone: [facility] Pulmonary Care Comment on above: Lung nodule (Primary Dx); JOHN (obstructive sleep apnea); Morbid obesity with BMI of 45.0-49.9, adult (HCC) Start: 01-27-2024 End: 01-28-2024 Emergency department patient visit Fermin Melchor DO Work Phone: [facility] Comment on above: Hypoglycemia (Primar y Dx) Start: 01-26-2024 End: 01-27-2024 Emergency department patient visit Art Zeng DO Work Phone: [facility] Comment on above: Hypoglycemia (Primar y Dx) Start: 01-22-2024 End: 01-22-2024 Emergency department patient visit Jaquan Morris DO Work Phone: [facility] Comment on above: Nausea and vomiting, unspecified vomiting type (Primary Dx); Cystitis Start: 01-20-2024 Telephone encounter Geronimo ryan MD Work Phone: [facility] Clinical Communication Comment on above: Appointment Start: 01-20-2024 End: 01-20-2024 ambulatory [facility] Work Phone: Start: 01-20-2024 End: 01-20-2024 Departed Referred [facility] Start: 01-20-2024 Registered Referred [facility] Start: 01-19-2024 Telephone encounter Geronimo ryan MD Work Phone: [facility] Endocrinology Comment on above: Diabetes (BGL) Start: 01-17-2024 End: 01-17-2024 ambulatory [facility] Work Phone: Start: 01-17-2024 End: 01-17-2024 Departed Referred [facility] Start: 01-17-2024 Registered Referred [facility] Start: 01-13-2024 End: 01-13-2024 ambulatory [facility] Work Phone: Start: 01-13-2024 End: 01-13-2024 Departed Referred [facility] Start: 01-13-2024 Registered Referred [facility] Start: 01-03-2024 Telephone encounter Josie Dean [facility] Pulmonary and Sleep Medicine Comment on above: Care Coordination (E D Nuance Lung Nodule ) Start: 12-31-2023 End: 12-31-2023 ambulatory [facility] Work Phone: Start: 12-31-2023 End: 12-31-2023 Departed Referred [facility] Start: 12-30-2023 End: 12-30-2023 ambulatory [facility] Work Phone: Start: 12-30-2023 End: 12-30-2023 Departed Referred [facility] Start: 12-30-2023 Registered Referred [facility] Start: 12-28-2023 End: 12-29-2023 Emergency department patient visit Edwin Bustos MD Work Phone: [facility] Comment on above: Nausea and vomiting, unspecified vomiting type (Primary Dx) Start: 12-28-2023 Telephone encounter Geronimo ryan MD Work Phone: [facility] Endocrinology Comment on above: Diabetes (BGL) Start: 12-23-2023 End: 12-23-2023 Subsequent hospital visit by physician Elda Reaves (Pa) Work Phone: [facility] Nuclear Medicine Comment on above: Nausea with vomiting , unspecified Start: 12-22-2023 End: 12-22-2023 ambulatory [facility] Work Phone: Start: 12-22-2023 End: 12-22-2023 Departed Referred [facility] Start: 12-22-2023 Registered Referred [facility] Start: 12-13-2023 ambulatory Leonela Calix RN [facility] Clinical Communication Start: 12-13-2023 Patient encounter procedure Leonela Calix RN [facility] Clinical Communication Start: 12-09-2023 End: 12-09-2023 Emergency department patient visit Caridad Evans MD Work Phone: [facility] Comment on above: Nausea vomiting and diarrhea (Primary Dx); Dehydration Start: 12-06-2023 Telephone encounter Geronimo ryan MD Work Phone: [facility] Endocrinology Comment on above: Diabetes (BGL) Start: 11-24-2023 Transcribe Orders Elda Reaves (Pa) Work Phone: [facility] Central Scheduling Comment on above: Nausea with vomiting , unspecified (Primary Dx) Start: 11-23-2023 Telephone encounter Geronimo ryan MD Work Phone: [facility] Endocrinology Comment on above: Diabetes (BGL) Start: 11-23-2023 End: 11-23-2023 ambulatory [facility] Work Phone: Start: 11-23-2023 End: 11-23-2023 Departed Referred [facility] Start: 11-18-2023 End: 11-18-2023 ambulatory [facility] Work Phone: Start: 11-18-2023 End: 11-18-2023 Departed Referred [facility] Start: 11-18-2023 Registered Referred [facility] Start: 11-17-2023 End: 11-17-2023 ambulatory SARBJIT AGUILARHOR Facility:[facility] Start: 11-09-2023 Telephone encounter Geronimo ryan MD Work Phone: [facility] Endocrinology Comment on above: Advice Only Start: 10-27-2023 End: 10-27-2023 Office outpatient visit 25 minutes Geronimo Lee MD Work Phone: [facility] Endocrinology Comment on above: Type 2 diabetes lee itus with hyperglycemia, with long-term current use of insulin (HCC) (Primary Dx); Mixed hyperlipidemia; Primary hypertension Start: 10-26-2023 End: 10-26-2023 ambulatory [facility] Work Phone: Start: 10-26-2023 End: 10-26-2023 Departed Referred [facility] Start: 10-07-2023 End: 10-07-2023 Subsequent hospital visit by physician [facility] [address] Exam Room [address] [facility] [address] Comment on above: Arrived Start: 10-07-2023 End: 10-17-2023 Evaluation and management of inpatient Rosaura Mustafa DO Work Phone: [facility] Cardiac Post Intervention Progressive Care Unit [facility]PI PCU 4W Start: 09-20-2023 Telephone encounter Geronimo ryan MD Work Phone: [facility] Endocrinology Comment on above: Diabetes (BGL) Start: 09-20-2023 End: 09-20-[address] [facility] [employer] [facility] Start: 08-30-2023 Telephone encounter Geronimo ryan MD Work Phone: [facility] Endocrinology Comment on above: Diabetes (BGL) Start: 08-17-2023 End: 08-19-2023 Emergency department patient visit Aaron Burgos Work Phone: [facility] Medical Surgical Unit MSU 1E Comment on above: Upper abdominal pain (Primary Dx); Hypoglycemia Start: 08-17-2023 End: 08-17-2023 ambulatory [facility] Work Phone: Start: 08-17-2023 End: 08-17-2023 Departed Referred [facility] Start: 08-11-2023 Telephone encounter Geronimo ryan MD Work Phone: [facility] Endocrinology Comment on above: Diabetes (BGL) Start: 08-08-2023 End: 08-08-2023 Emergency department patient visit Gayle Trevizo MD Work Phone: [facility] Comment on above: Pyelonephritis (Prim valeria Dx); Upper abdominal pain; Nausea Start: 08-04-2023 End: 08-04-2023 [facility] Work Phone: Start: 08-04-2023 End: 08-04-2023 Departed Referred [facility] Start: 08-02-2023 End: 08-02-2023 Departed Referred [facility] Start: 08-02-2023 Registered Referred [facility] Start: 07-05-2023 Telephone encounter Geronimo ryan MD Work Phone: [facility] Endocrinology Comment on above: Care Coordination (E D Nuance Lung Nodule ) Care Coordination (E D Nuance Lung Nodule/Resp consult for lung nodule) Start: 07-05-2023 End: 07-05-2023 ambulatory [facility] Work Phone: Start: 07-05-2023 End: 07-05-2023 Departed Referred [facility] Start: 06-29-2023 End: 06-29-2023 Evaluation and management of inpatient Art Palmer MD Work Phone: [facility] Endoscopy Start: 06-28-2023 End: 07-01-2023 Emergency department patient visit Rosaura Mustafa DO Work Phone: [facility] 2E TELEMETRY Comment on above: Chest pain, unspecif ied type (Primary Dx) Start: 06-22-2023 Telephone encounter Geronimo ryan MD Work Phone: [facility] Endocrinology Comment on above: Diabetes (BGL) Start: 05-31-2023 End: 05-31-2023 Departed Referred [facility] Start: 05-31-2023 Registered Referred [facility] Start: 05-17-2023 Telephone encounter Geronimo ryan MD Work Phone: [facility] Endocrinology Comment on above: Diabetes (BGL) Start: 05-05-2023 Telephone encounter Geronimo ryan MD Work Phone: [facility] Endocrinology Comment on above: Diabetes (BGL) Start: 04-19-2023 End: 04-19-2023 ambulatory [facility] Work Phone: Start: 04-19-2023 End: 04-19-2023 Departed Referred [facility] Start: 03-30-2023 End: 03-30-2023 ambulatory [facility] Work Phone: Start: 03-30-2023 End: 03-30-2023 Departed Referred [facility] Start: 03-15-2023 End: 03-15-2023 Departed Referred [facility] Start: 03-08-2023 End: 03-08-2023 Emergency department patient visit Karlos Osborn DO Work Phone: [facility] Comment on above: Abdominal pain, gene ralized (Primary Dx); Gastroparesis Start: 02-25-2023 Telephone encounter Geronimo ryan MD Work Phone: [facility] Endocrinology Comment on above: Diabetes (BGL) Start: 02-09-2023 End: 02-09-2023 Office outpatient visit 25 minutes Geronimo Lee MD Work Phone: [facility] Endocrinology Comment on above: Type 2 diabetes lee itus with hyperglycemia, with long-term current use of insulin (CMS/HCC) (HCC) (Primary Dx); Mixed hyperlipidemia; Primary hypertension Start: 01-26-2023 Transcribe Orders Jared moyer Work Phone: [facility] Physician Referral Service Start: 01-13-2023 End: 01-13-2023 ambulatory [facility] Work Phone: Start: 01-13-2023 End: 01-13-[address] [facility] [employer] Start: 12-02-2022 End: 12-02-2022 ambulatory [facility] Work Phone: Start: 12-02-2022 End: 12-02-[address] [facility] [employer] Start: 10-27-2022 End: 10-27-2022 ambulatory [facility] Work Phone: Start: 10-27-2022 End: 10-27-[address] [facility] [employer] Start: 06-24-2022 End: 06-24-2022 ambulatory [facility] Work Phone: Start: 06-24-2022 End: 06-24-2022 [facility] [employer] Start: 05-25-2022 End: 05-25-2022 [facility] [employer] Start: 04-27-2022 End: 04-27-2022 [facility] [employer] Start: 04-13-2022 End: 04-13-[address] [facility] [employer] Start: 04-13-2022 [facility] [employer] [facility] Start: 03-02-2022 End: 03-02-[address] [facility] [employer] Start: 01-29-2022 End: 01-29-[address] [facility] [employer] Start: 01-29-2022 Registered Referred [facility] [employer] Start: 01-19-2022 End: 01-19-[address] [facility] [employer] Start: 01-19-2022 Registered Referred [facility] [employer] Start: 12-08-2020 End: 12-08-2020 Emergency department patient visit Art Zeng Work Phone: [facility] Comment on above: Bacterial urinary in fection (Primary Dx); Non-intractable vomiting with nausea, unspecified vomiting type; Abdominal pain, unspecified abdominal location Start: 11-22-2020 End: 11-28-2020 Evaluation and management of inpatient Joel Nelson Work Phone: [facility] 7E Oncology Comment on above: Hypoglycemia (Primar [...] department patient visit Davie Blank Work Phone: [facility] Comment on above: Amputation stump inf ection (HCC) (Primary Dx) Start: 06-14-2019 End: 06-20-2019 Evaluation and management of inpatient Dom Ortiz Work Phone: [facility] [employer] Comment on above: Diabetic foot infect ion (HCC) (Primary Dx); Lactic acidosis; Morbid obesity (HCC) Start: 01-03-2019 End: 01-03-2019 Patient encounter procedure [facility] Start: 12-27-2018 End: 12-27-2018 Patient encounter procedure KYLAH Escobar [facility] Start: 07-12-2018 End: 07-12-2018 Patient encounter procedure [facility] Start: 06-28-2018 End: 06-28-2018 Patient encounter procedure [facility] Start: 06-14-2018 End: 06-14-2018 Patient encounter procedure [facility] Start: 05-04-2018 Ambulatory Kylah Luu Facili ty:[facility] Start: 04-28-2018 End: 05-06-2018 Evaluation and management of inpatient SARBJIT Bah [facility] Start: 03-18-2018 Ambulatory Kylah Escobar [facility] ty:[facility] Start: 03-15-2018 End: 03-21-2018 Evaluation and management of inpatient [facility] Start: 02-02-2018 End: 02-08-2018 Evaluation and management of inpatient [facility] Procedures Date Procedure Procedure Detail Performing Clinician [...] PA-C Work Phone: Start: 04-06-2025 Follow-up visit ALEJANDRO MANDEL Start: 02-26-2025 Serum inorganic phosphate measurement Jared LEON Start: 02-09-2025 Non-invasive physiologic study extremity 3 levls Alejandro Mandel DIRECTOR WOMEN - YARD ATTENDANT Work Phone: Start: 02-01-2025 Follow-up visit ALEJANDRO MANDEL Start: 01-01-2025 Follow-up visit ALEJANDRO MANDEL Start: 12-27-2024 Measurement of renal function Jared LEON Comment on above: GFR Calc Start: 12-21-2024 Follow-up visit ALEJANDRO MANDEL Start: 12-07-2024 Follow-up visit ALEJANDRO MANDEL Start: 11-14-2024 Follow-up visit Follow-up ASUNCION BLACK Start: 11-12-2024 Basic metabolic panel calcium total Ramsey Apodaca DIRECTOR WOMEN - YARD ATTENDANT Work Phone: Start: 11-12-2024 Ct abdomen & pelvis w/o contrast material Ramsey Apodaca DIRECTOR WOMEN - YARD ATTENDANT Work Phone: Start: 11-10-2024 Urine culture Jared LEON Start: 11-10-2024 Follow-up visit ALEJANDRO MANDEL Start: 10-24-2024 Urinalysis complete panel - Urine [...] Start: 10-19-2024 End: 10-19-2024 Comprehensive metabolic panel Ezra Ackerman MD Work Phone: Start: 10-19-2024 Manual Differential panel - Blood Ezra leavitt MD Work Phone: Start: 10-19-2024 Blood occult peroxidase actv qual feces 1-3 spec Ezra Ackerman MD Work Phone: Start: 10-18-2024 Culture bacterial quanttative colony count urine Dontrell Glozman DO Work Phone: Start: 10-18-2024 Urinalysis complete panel - Urine Ezra leavitt MD Work Phone: Start: 10-18-2024 End: 10-18-2024 Assay of lactate Ezra Ackerman MD Work Phone: Start: 10-18-2024 Us [...] Start: 12-23-2023 Gastric emptying imaging study Elda Garcia ( Pa)marisol Work Phone: Start: 12-09-2023 Urinalysis complete panel [...] Glucose quantitative blood xcpt reagent strip Marcio Armadno MD Work Phone: Start: 10-13-2023 Basic metabolic [...] Drug screen quantitative vancomycin Rachael Robertson DIRECTOR WOMEN - YARD ATTENDANT Work Phone: Start: 10-09-2023 End: 10-09-2023 Hemoglobin [...] & pelvis w/contrast material Rachael Robertson DIRECTOR WOMEN - YARD ATTENDANT Work Phone: Start: 10-08-2023 Glucose quantitative blood xcpt reagent strip Mayda Olmstead MD Work Phone: Start: 10-08-2023 Basic metabolic panel calcium total Rachael Robertson DIRECTOR WOMEN - YARD ATTENDANT Work Phone: Start: 10-07-2023 Glucose quantitative blood xcpt reagent strip Ricardo Spring MD Work Phone: Start: 10-07-2023 Procalcitonin (pct) Rachael Robertson DIRECTOR WOMEN - YARD ATTENDANT Work Phone: Start: 10-07-2023 Glucose quantitative blood xcpt reagent strip Ricardo Spring MD Work Phone: Start: 10-07-2023 End: 10-07-2023 Glucose quantitative blood xcpt reagent strip Rosaura Mustafa DO Work Phone: Start: 10-07-2023 Culture bacterial quanttative colony count urine Rosaura Mustafa DO Work Phone: Start: 10-07-2023 Drug tst prsmv instrmnt chem analyzers pr date Rachael Robertson DIRECTOR WOMEN - YARD ATTENDANT Work Phone: Start: 10-07-2023 Urinalysis complete panel [...] 10-07-2023 Ct head/brain w/o contrast material Rosaura Guilherme DO Work Phone: Start: 10-07-2023 Bacteria identified in Blood by Culture Roasura Mustafa DO Work Phone: Start: 10-07-2023 End: 10-07-2023 Comprehensive metabolic panel Rosaura marr DO Work Phone: Start: 10-07-2023 Drug test def 1-7 classes Rachael Herman son DIRECTOR WOMEN - YARD ATTENDANT Work Phone: Start: 08-19-2023 Glucose quantitative blood [...] 08-08-2023 Basic metabolic panel calcium total Ezio Harding Darwin DO Work Phone: Start: 07-01-2023 Glucose quantitative [...] dip stick/tablet rgnt auto w/o microscopy Art Escobar [employer] Work Phone: Start: 12-08-2020 Us abdominal real time w/image limited Art Escobar [employer] Work Phone: Start: 12-08-2020 Radiologic exam chest single view Michae elijah Escobar [employer] Work Phone: Start: 12-08-2020 Assay of lipase Art Escobar [employer] Work Phone: Start: 12-08-2020 Assay of troponin quantitative Art Escobar [employer] Work Phone: Start: 12-08-2020 Blood count complete [...] Start: 11-28-2020 Radiologic exam abdomen 1 view d Teddy PerryOSSIANIX Work Phone: Start: 11-28-2020 Gluc bld gluc [...] Start: 11-27-2020 Radiologic exam abdomen 1 view [facility] Teddy acevedo [employer] Work Phone: Start: 11-27-2020 Gluc bld gluc [...] Start: 11-25-2020 Radiologic exam abdomen 1 view JohnWarren Stapleton Work Phone: Start: 11-25-2020 Gluc bld gluc mntr dev cleared fda spec home use Art Stapleton Work Phone: Start: 11-25-2020 Us transvaginal Reyna C Frances Work Phone: Start: 11-25-2020 Gluc [...] dev cleared fda spec home use Art Rose Pieter Work Phone: Start: 11-24-2020 Assay of troponin quantitative Kylah robles Work Phone: Start: 11-24-2020 Comprehensive metabolic panel Kylah marks Work Phone: Start: 11-24-2020 Ecg routine ecg w/least 12 lds w/i&r Kylah David Work Phone: Start: 11-24-2020 End: 11-24-2020 Gluc bld gluc mntr dev cleared fda spec home use Art Rosemarcia Stapleton Work Phone: Start: 11-24-2020 Blood count [...] mntr dev cleared fda spec home use Nabli M Esterle Work Phone: Start: 09-28-2020 Gluc [...] Phone: Start: 09-26-2020 Comprehensive metabolic panel Nabil M Est erle Work Phone: Start: 09-26-2020 Blood [...] 09-25-2020 Radiologic exam abdomen 1 view Nabil Boothe terle Work Phone: Start: 09-25-2020 Gluc bld [...] Blood count complete auto&auto difrntl wbc Nabil Mane Esterle Work Phone: Start: 09-24-2020 Comprehensive metabolic [...] 09-23-2020 Radiologic exam abdomen 1 view Kylah Marshall travis Work Phone: Start: 09-23-2020 Gluc bld gluc mntr dev cleared fda spec home use Nabil M Esterle Work Phone: Start: 09-23-2020 Gluc bld gluc mntr dev cleared fda spec home use Nabil M Esterle Work Phone: Start: 09-23-2020 Blood count complete auto&auto difrntl wbc Kylah David Work Phone: Start: 09-23-2020 Comprehensive metabolic panel Kylah Reed nnarline Work Phone: Start: 09-22-2020 Gluc bld gluc [...] home use Art Peraltakemi Work Phone: Start: 09-20-2020 Radiologic exam abdomen 1 view Nabil lewis Work Phone: Start: 09-20-2020 Gluc bld gluc mntr dev cleared fda spec home use Art Escobar [employer] Work Phone: Start: 09-20-2020 Basic metabolic panel calcium total Nabil Hill Work Phone: Start: 09-19-2020 Gluc bld gluc mntr dev cleared fda spec home use Art Escobar [employer] Work Phone: Start: 09-19-2020 Gluc bld gluc mntr dev cleared fda spec home use Art Escobar [employer] Work Phone: Start: 09-19-2020 HM ENDOSCOPY REPORT 3m Scanning Start: 09-19-2020 Level iv surg pathology gross&microscopic exam Sergio Mackenzielinda Work Phone: Start: 09-19-2020 Gluc bld gluc mntr dev cleared fda spec home use Art Escobar [employer] Work Phone: Start: 09-19-2020 Radiologic exam abdomen 1 view Kylah robles Work Phone: Start: 09-19-2020 Gluc bld gluc mntr dev cleared fda spec home use Art Escobar [employer] Work Phone: Start: 09-19-2020 Blood count complete auto&auto difrntl wbc Kylah David Work Phone: Start: 09-19-2020 Comprehensive metabolic panel Kylah marks Work Phone: Start: 09-19-2020 MANUAL DIFFERENTIAL Kylah David Work Phone: Start: 09-18-2020 Gluc bld gluc mntr dev cleared fda spec home use Art Escobar [employer] Work Phone: Start: 09-18-2020 End: 09-18-2020 Gluc [...] Start: 06-26-2019 Comprehensive metabolic panel Kaci Garcia teresaeclestine Work Phone: Start: 06-26-2019 RBC morphology finding [...] use Dom R Ortiz Work Phone: Start: 06-18-2019 Gluc bld [...] Level iv surg pathology gross&microscopic exam Sergio Pisano Work Phone: Start: 06-16-2019 Gluc bld gluc mntr dev cleared fda spec home use Dom R Ortiz Work Phone: Start: 06-16-2019 Gluc bld gluc mntr dev cleared fda spec home use Dom R Oritz Work Phone: Start: 06-16-2019 Albumin serum plasma/whole [...] 06-16-2019 Drug screen quantitative vancomycin Keily N [place] Work Phone: Start: 06-15-2019 Gluc bld gluc [...] Radex foot complete minimum 3 views Dom R Ortiz Work Phone: Start: 06-14-2019 ADD ON LAB TEST Dom R Ortiz Work Phone: Start: 06-14-2019 End: 06-14-2019 Culture bacterial blood aerobic w/id isolates Marianna Jon Work Phone: Start: 06-14-2019 Assay of lactate Marianan Jon Work Phone: Start: 06-14-2019 Basic metabolic [...] Foot, Complete 5th Ray, Open Approach KYLAH ULU Start: 03-18-2018 Excision of Right Metatarsal, Open [...] for Adults (1 - 1-dose 75+ series) [facility] Start: 06-07-2035 Screening for malignant neoplasm of colon [facility] Start: 2026 RSV Immunization aged 60 or older (1 - 1-dose 60+ series) RSV Immunization aged 60 or older (1 - 1-dose 60+ series) [facility] Start: 2026 [facility] Start: 07-10-2026 Diabetes: Estimated Glomerular Filtration Rate for Kidney Health Diabetes: Estimated Glomerular Filtration Rate for Kidney Health [facility] Start: 04-19-2026 Glaucoma screening Diabetes: Retinopathy Screening [facility] Start: 04-06-2026 Hemoglobin A1c measurement Diabetes: Hemoglobin A1C [facility] Start: 03-27-2026 Diabetic foot examination Diabetes: Foot Exam [facility] Start: 01-01-2026 Diabetic foot examination Diabetes: Foot Exam [facility] Start: 12-01-2025 Diabetes: Estimated Glomerular Filtration Rate for Kidney Health Diabetes: Estimated Glomerular Filtration Rate for Kidney Health [facility] Start: 11-12-2025 Diabetes: Estimated Glomerular Filtration Rate for Kidney Health Diabetes: Estimated Glomerular Filtration Rate for Kidney Health [facility] Start: 10-24-2025 Diabetes: Estimated Glomerular Filtration Rate for Kidney Health Diabetes: Estimated Glomerular Filtration Rate for Kidney Health [facility] Start: 10-23-2025 Diabetes: Estimated Glomerular Filtration Rate for Kidney Health Diabetes: Estimated Glomerular Filtration Rate for Kidney Health [facility] Start: 10-20-2025 Diabetes: Estimated Glomerular Filtration Rate for Kidney Health Diabetes: Estimated Glomerular Filtration Rate for Kidney Health [facility] Start: 10-19-2025 Hemoglobin A1c measurement Diabetes: Hemoglobin A1C [facility] Start: 10-19-2025 Screening for malignant neoplasm of colon [facility] Start: 08-31-2025 Glaucoma screening Diabetes: Retinopathy Screening [facility] Start: 08-16-2025 End: 08-16-2025 Patient encounter procedure 08/16/2025 3:30 PM EDT Office Visit [facility] [address] [place] [address] Maria Eugenia Santos APRN - [facility] [address] [place] [address] [facility] Start: 08-07-2025 End: 08-07-2025 Patient encounter procedure 08/07/2025 3:30 PM EDT Office Visit [facility] [address] [place] [address] Kaushal Schultz PA-C [address] [place] [address] [facility] Start: 07-26-2025 End: 07-26-2025 Patient encounter procedure 07/26/2025 11:00 AM EDT Office Visit [facility] [address] [place] [address] Maria Eugenia Santos APRN - [facility] [address] [facility] [place] [address] [facility] Start: 07-09-2025 COVID-19 Vaccine ( season) COVID-19 Vaccine ( season) [facility] Start: 07-09-2025 Influenza vaccination [facility] Start: 07-07-2025 End: 04-06-2026 Comprehensive metabolic 1998 panel - Serum or Plasma Comprehensive metabolic panel Lab Routine Type 2 diabetes mellitus with hyperglycemia, with long-term current use of insulin (HCC) Microalbuminuria Expected: 07/07/2025 (Approximate), Expires: 04/06/2026 [facility] Work Phone: Comment on above: Expected: 07/07/2025 (Approximate), Expi res: 04/06/2026 Start: 07-07-2025 End: 04-06-2026 Lipid 1996 panel - Serum or Plasma Lipid panel Lab Routine Mixed diabetic hyperlipidemia associated with type 2 diabetes mellitus (HCC) Expected: 07/07/2025 (Approximate), Expires: 04/06/2026 [facility] Comment on above: Expected: 07/07/2025 (Approximate), Expi res: 04/06/2026 Start: 07-07-2025 End: 04-06-2026 Microalbumin/Creatinine panel in random Urine Microalbumin / creatinine urine ratio Lab Routine Type 2 diabetes mellitus with hyperglycemia, with long-term current use of insulin (HCC) Microalbuminuria Expected: 07/07/2025 (Approximate), Expires: 04/06/2026 [facility] Comment on above: Expected: 07/07/2025 (Approximate), Expi res: 04/06/2026 Start: 06-22-2025 Glaucoma screening [facility] Start: 06-07-2025 End: 06-07-2025 Admission to same day surgery center 06/07/2025 11:00 AM EDT - 06/07/2025 12:00 PM EDT Surgery [facility] [address] [place] [address] Farhad Chavez MD [address] [facility] [address] [place] [address] COLONOSCOPY [67649 (CPT )] [facility] Endoscopy Comment on above: COLONOSCOPY [81521 (CPT )] Start: 06-07-2025 End: 06-07-2025 Colonoscopy flx dx w/collj spec when pfrmd [facility] Gastroenterology Start: 06-07-2025 End: 06-07-2025 Esophagogastroduodenoscopy transoral diagnostic [facility] Gastroenterology Start: 06-07-2025 Subsequent hospital visit by physician 06/07/2025 11:00 AM EDT Hospital Encounter [facility] [address] [place] [phone] Farhad Chavez MD [address] [address] [facility] Start: 03-27-2025 End: 03-27-2025 Patient encounter procedure 03/27/2025 9:00 AM EDT Office Visit [facility] [address] [facility] [address] [place] [address] Lisa Lopes, DIRECTOR WOMEN - YARD ATTENDANT [address] [place] [address] [facility] Start: 03-02-2025 End: 03-02-2025 Patient encounter procedure 03/02/2025 11:20 AM EDT Office Visit [facility] [address] [place] [phone] Herber Ramos, DIRECTOR WOMEN - YARD ATTENDANT [address] [facility] [address] [place] [address] [facility] Start: 02-14-2025 Glaucoma screening Diabetes: Retinopathy Screening [facility] Start: 02-09-2025 End: 02-09-2025 Patient encounter procedure 02/09/2025 2:20 PM EDT Appointment [facility] Vascular Lab [address] [place] [address] Alejandro Mandel APRN - YARD ATTENDANT [address] [facility] [address] [place] [phone] [facility] V[facility] Lab Start: 02-06-2025 End: 02-10-2025 CT Chest WO contrast CT chest wo IV contrast Imaging Routine Lung nodule Expected: 02/06/2025, Expires: 02/10/2025 [facility] Work Phone: Comment on above: Expected: 02/06/2025, Expires: Start: 02-06-2025 End: 02-06-2025 Patient encounter procedure [facility] CT Start: 02-06-2025 End: 02-06-2025 Patient encounter procedure 02/06/2025 7:30 AM EDT Appointment [facility] CT Imaging [address] [place] [phone] Herber Ramos APRN - YARD ATTENDANT [address] [facility] [address] [place], [place] [phone] [facility] CT Imaging Start: 02-01-2025 End: 02-01-2025 Patient encounter procedure 02/01/2025 9:30 AM EDT Office Visit [facility] [address] [facility] [address] [place] [address] Alejandro Mandel APRN - YARD ATTENDANT [address] [facility] [address] [place] [address] [facility] Vascular Surgery [facility] Start: 01-21-2025 Diabetes: Estimated Glomerular Filtration Rate for Kidney Health Diabetes: Estimated Glomerular Filtration Rate for Kidney Health [facility] Start: 01-01-2025 End: 01-01-2026 Lipid 1996 panel - Serum or Plasma Lipid panel Lab Routine Mixed hyperlipidemia Expected: 01/01/2025 (Approximate), Expires: 01/01/2026 [facility] [employer] [facility] Work Phone: Comment on above: Expected: 01/01/2025 (Approximate), Expi res: 01/01/2026 Start: 01-01-2025 End: 01-01-2026 Microalbumin/Creatinine panel in random Urine Microalbumin / creatinine urine ratio Lab Routine Type 2 diabetes mellitus with hyperglycemia, with long-term current use of insulin (HCC) Expected: 01/01/2025 (Approximate), Expires: 01/01/2026 [facility] Comment on above: Expected: 01/01/2025 (Approximate), Expi res: 01/01/2026 Start: 01-01-2025 End: 01-01-2025 Patient encounter procedure 01/01/2025 11:00 AM EST Office Visit [facility] [address] [facility] [address] [place] [address] Margo Guerrero, DIRECTOR WOMEN - YARD ATTENDANT [address] [place] [address] [facility] Start: 12-31-2024 Hemoglobin A1c measurement Diabetes: Hemoglobin A1C [facility] Start: 12-21-2024 End: 12-21-2024 Patient encounter procedure 12/21/2024 8:30 AM EST [facility] [address] [place] [phone] Wanda Johnson [facility] [address] [place] [address] [facility] Start: 12-10-2024 Glaucoma screening Diabetes: Retinopathy Screening [facility] Start: 12-07-2024 End: 12-07-2024 Patient encounter procedure 12/07/2024 1:00 PM EST Office Visit [facility] [address] [facility] [address] [place] [phone] Lilo Rizo MD [address] [facility] [address] [place] [address] [facility] Start: 11-27-2024 End: 11-27-2024 Patient encounter procedure [facility] Endocrinology [facility] Start: 11-24-2024 End: 11-10-2025 RF Guidance for percutaneous drainage and placement of drainage catheter of Biliary ducts IR biliary drain check Imaging Routine Cholecystitis Expected: 11/24/2024, Expires: 11/10/2025 [facility] Work Phone: Comment on above: Expected: 11/24/2024, Expires: Start: 11-14-2024 End: 11-14-2024 Patient encounter procedure 11/14/2024 10:15 AM EST Office Visit [facility] [address] [facility] [address] [place] [phone] Asuncion Valencia APRN - YARD ATTENDANT [address] [facility] [address] [place] [address] [facility] Start: 11-08-2024 Medicare Advantage Annual Wellness Visit Medicare Advantage Annual Wellness Visit [facility] Start: 10-09-2024 Hemoglobin A1c measurement [facility] Start: 07-09-2024 COVID-19 Vaccine ( season) COVID-19 Vaccine ( season) [facility] Start: 07-09-2024 COVID-19 Vaccine ( season) COVID-19 Vaccine ( season) [facility] Start: 07-09-2024 Influenza vaccination [facility] Start: 06-22-2024 Glaucoma screening Diabetes: Retinopathy Screening [facility] Start: 03-14-2024 End: 03-14-2024 Patient encounter procedure 03/14/2024 2:30 PM EDT Office Visit [facility] Endocrinology [address] [place] [phone] Carito Thacker, DIRECTOR WOMEN - YARD ATTENDANT [address] [place] [address] [facility] Start: 02-11-2024 End: 02-10-2025 CT Chest WO contrast CT chest wo IV contrast Imaging Routine Solitary pulmonary nodule Expected: 02/11/2024, Expires: 02/10/2025 [facility] Work Phone: Comment on above: Expected: 02/11/2024, Expires: Start: 02-11-2024 End: 02-11-2024 Patient encounter procedure [facility] Start: 02-10-2024 Hemoglobin A1c measurement Diabetes: Hemoglobin A1C [facility] Start: 02-10-2024 Lipid panel [facility] Start: 01-06-2024 End: 01-06-2024 Patient encounter procedure 01/06/2024 11:30 AM EST Appointment [facility] CT Imaging [address] [place] [phone] Herber Raoms, DIRECTOR WOMEN - YARD ATTENDANT [address] [place] [address] [facility] CT Imaging Start: 12-31-2023 End: 12-31-2023 ambulatory [facility] Start: 12-31-2023 End: 12-31-2023 Patient encounter procedure 12/31/2023 9:40 AM EST Office Visit [facility] [address] [place] [phone] Herber Ramos, DIRECTOR WOMEN - YARD ATTENDANT [address] [place] [address] [facility] Start: 12-23-2023 End: 12-23-2023 Patient encounter procedure 12/23/2023 9:00 AM EST Appointment [facility] Nuclear Medicine [address] [place] [phone] [facility] Nuclear Medicine Start: 12-20-2023 End: 12-20-[address] [facility] CT Imaging Start: 12-20-2023 End: 12-20-2023 Patient encounter procedure 12/20/2023 10:30 AM EST Appointment [facility] [address] [place] [address] Herber Ramos, DIRECTOR WOMEN - YARD ATTENDANT [address] [place] [address] [facility] CT Imaging Start: 11-08-2023 Medicare Advantage Annual Wellness Visit Medicare Advantage Annual Wellness Visit [facility] Start: 10-27-2023 End: 10-27-2023 ambulatory [facility] Endocrinology Start: 10-27-2023 End: 10-27-2023 Patient encounter procedure 10/27/2023 2:00 PM EST Office Visit [facility] Endocrinology [address] [place] [address] Geronimo Lee MD [address] [place] [address] [facility] Start: 10-27-2023 End: 10-27-2023 Telemedicine consultation with patient 10/27/2023 2:00 PM EST Telemedicine [facility] [address] [place] [address] Geronimo Lee MD [address] [place] [address] [facility] Start: 09-17-2023 End: 09-17-2023 Patient encounter procedure 09/17/2023 Office Visit Endocrinology Geronimo Lee MD [address] [place] [address] [facility] Start: 09-17-2023 End: 09-17-2023 Patient encounter procedure 09/17/2023 9:10 AM EST Office Visit [facility] [address] [place] [id number] Herber Ramos APRN - YARD ATTENDANT [address] [place] [address] [facility] Start: 08-13-2023 End: 08-13-2023 Patient encounter procedure 08/13/2023 11:40 AM EDT Office Visit [facility] [address] [place] [phone] Herber Ramos, DIRECTOR WOMEN - YARD ATTENDANT [address] [place] [address] [facility] Start: 07-30-2023 End: 07-30-2023 Patient encounter procedure 07/30/2023 9:10 AM EDT Office Visit [facility] [address] [place] [phone] Herber Ramos, DIRECTOR WOMEN - YARD ATTENDANT [address] [place] [address] [facility] Start: 07-09-2023 COVID-19 Vaccine () COVID-19 Vaccine () [facility] Start: 07-09-2023 Influenza vaccination [facility] Start: 07-09-2023 [facility] Start: 06-29-2023 End: 06-29-2023 Esophagogastroduodenoscopy transoral diagnostic EGD DIAGNOSTIC Nausea and vomiting, unspecified vomiting type 06/29/2023 9:54 AM EDT [facility] Start: 05-11-2023 Hemoglobin A1c measurement Diabetes: Hemoglobin A1C [facility] Start: 10-19-2022 Hemoglobin A1c measurement Diabetes: Hemoglobin A1C [facility] Start: 08-08-2022 Influenza vaccination Influenza Vaccine (#1) [facility] Start: 04-23-2022 COVID-19 Vaccine (4 - Booster for Pfizer series) COVID-19 Vaccine (4 - Booster for Pfizer series) [facility] Start: 04-23-2022 COVID-19 Vaccine (4 - Pfizer series) COVID-19 Vaccine (4 - Pfizer series) [facility] Start: 12-08-2021 Creatinine measurement Creatinine monitoring [facility] Start: 12-08-2021 Potassium monitoring Potassium monitoring [facility] [place], [place] Start: 11-28-2021 Creatinine measurement Creatinine monitoring [facility] [employer] Start: 11-28-2021 Potassium monitoring Potassium monitoring [facility], [place] Start: 09-26-2021 Creatinine measurement Creatinine monitoring [facility], [place] Start: 09-26-2021 Potassium monitoring Potassium monitoring [facility] [place] Start: 08-29-2021 Lipid panel Lipid Panel [facility] Start: 08-23-2021 Lipid panel Lipid screen [facility] [place] Start: 02-21-2021 HbA1c (Bld) [Mass fraction] A1C test (Diabetic or Prediabetic) [facility] [place] Start: 01-24-2021 End: 01-24-2021 Office Visit 01/24/2021 Office Visit Endocrinology Geronimo Lee MD [address] [place] [address] [phone] [facility] [place] Start: 11-23-2020 End: 11-23-2020 HbA1c (Bld) [Mass fraction] [facility] [place] Comment on above: One Time for 1 Occurrences starting 11/08 until 11/23/2020 Start: 07-09-2020 Influenza vaccination Flu vaccine (#1) [facility] [place] Start: 06-26-2020 Creatinine monitoring Creatinine monitoring [facility] [place] Start: 06-26-2020 Potassium monitoring Potassium monitoring [facility], [place] Start: 06-20-2020 Creatinine monitoring Creatinine monitoring [facility] [place] Start: 06-20-2020 Potassium monitoring Potassium monitoring [facility] [place] Start: 01-22-2020 End: 01-22-2020 Office Visit 01/22/2020 Office Visit Gynecologic Oncology Justin Walsh MD [address] [facility] [address] [place] [address] [phone] [facility] [place] INSURANCE CLAIMS REPRESENTATIVE Oncology Start: 01-09-2020 End: 01-09-2020 Appointment 01/09/2020 Appointment General Surgery Justin Walsh MD [address] [facility] [address] [place], [place] [id number] [facility] General Surgery Start: 09-16-2019 A1C test (Diabetic or Prediabetic) A1C test (Diabetic or Prediabetic) [facility] [place] Start: 07-17-2019 End: 07-17-2019 Office Visit 07/17/2019 Office Visit Gynecologic Oncology Justin Walsh MD [address] [facility] [address] [place] [address] [phone] [facility] INSURANCE CLAIMS REPRESENTATIVE Oncology Start: 07-13-2019 End: 07-13-2019 Office Visit 07/13/2019 Office Visit Gynecologic Oncology Mignon Bynum PA [address] [facility] [address] [facility] [address] [place] [phone] [facility] INSURANCE CLAIMS REPRESENTATIVE Oncology Start: 07-09-2019 Influenza vaccination Flu vaccine (#1) [place] Start: 06-28-2019 End: 06-28-2019 Office Visit 06/28/2019 Office Visit Orthopedic Surgery Sergio Pisano MD [address] [facility] [address] [place] [address] [phone] [facility] [place] Start: 06-27-2019 End: 06-27-2019 Hospital Encounter [facility] Comment on above: Canceled (Other) Start: 04-26-2019 Annual Wellness Visit (AWV) Annual Wellness Visit (AWV) [place], [place] Start: 2016 Breast cancer screen Breast cancer screen [place] Start: 2016 Colon cancer screen colonoscopy Colon cancer screen colonoscopy [place] Start: 2016 Screening for malignant neoplasm of breast Breast cancer screen [place] Start: 2016 Screening for malignant neoplasm of colon Colon cancer screen colonoscopy [place] Start: 2016 Shingles (RZV) Vaccine (1 of 2) Shingles (RZV) Vaccine (1 of 2) [facility] Start: 2016 Shingles Vaccine (1 of 2) Shingles Vaccine (1 of 2) [place] Start: 2016 Zoster Vaccines (1 of 2) Zoster Vaccines (1 of 2) [facility] Start: 2016 [facility] Start: 2011 Cholesterol [Mass/volume] in Serum or Plasma Cholesterol [facility] Start: 2011 Screening for malignant neoplasm of colon [facility] Start: 2006 Screening for malignant neoplasm of breast [facility] Start: 1996 Screening for malignant neoplasm of cervix [facility] Start: 1987 Cervical cancer screen Cervical cancer screen [place] Start: 1987 Screening for malignant neoplasm of cervix [facility] Start: 1985 DTaP/Tdap/Td vaccine (1 - Tdap) DTaP/Tdap/Td vaccine (1 - Tdap) [place] Start: 1985 DTaP/Tdap/Td Vaccines (1 - Tdap) DTaP/Tdap/Td Vaccines (1 - Tdap) [facility] Start: 1985 Hepatitis B Vaccine (1 of 3 - Risk 3-dose series) Hepatitis B Vaccine (1 of 3 - Risk 3-dose series) [place] Start: 1985 Hepatitis B Vaccines (1 of 3 - 19+ 3-dose series) Hepatitis B Vaccines (1 of 3 - 19+ 3-dose series) [facility] Start: 1985 Pneumococcal Vaccine: 50+ Years (1 of 2 - PCV) Pneumococcal Vaccine: 50+ Years (1 of 2 - PCV) [facility] Start: 1985 Tetanus vaccination Tetanus (Td or Tdap) Booster [facility] Start: 1985 Urine screening for protein Diabetes: Urine Protein Screening [facility] Start: 1985 [facility] Start: 1984 Diabetes: Urine Albumin-Creatinine Ratio for Kidney Health Diabetes: Urine Albumin-Creatinine Ratio for Kidney Health [facility] Start: 1984 Diabetic microalbuminuria test Diabetic microalbuminuria test [place] Start: 1984 Hepatitis C screening [facility] Start: 1984 Tetanus + diphtheria + acellular pertussis vaccine (product) Tdap Booster [facility] Start: 1981 HIV screen HIV screen [place], [place] Start: 1981 HIV screening [facility] Start: 1978 Depression Monitoring Depression Monitoring [facility] Start: 1978 Depression Screening Depression Screening [facility] Start: 1978 [facility] Start: 1977 DTaP/Tdap/Td vaccine (1 - Tdap) DTaP/Tdap/Td vaccine (1 - Tdap) [place] Start: 1976 [object Object] Diabetic foot exam [place] Start: 1976 Diabetic foot examination [facility] Start: 1976 Diabetic retinal exam Diabetic retinal exam [place], [place] Start: 1976 Glaucoma screening Diabetes: Retinopathy Screening [facility] Start: 1976 Lipid screen Lipid screen [place], [place] Start: 1976 Preventive dental service [facility] Start: 1972 Pneumococcal 0-64 years Vaccine (1 of 1 - PPSV23) Pneumococcal 0-64 years Vaccine (1 of 1 - PPSV23) [place] Start: 1972 Pneumococcal Vaccine: Pediatrics (0 to 5 Years) and At-Risk Patients (6 to 64 Years) (1 - PCV) Pneumococcal Vaccine: Pediatrics (0 to 5 Years) and At-Risk Patients (6 to 64 Years) (1 - PCV) [facility] Start: 1972 Pneumococcal Vaccine: Pediatrics (0 to 5 Years) and At-Risk Patients (6 to 64 Years) (1 of 2 - PCV) Pneumococcal Vaccine: Pediatrics (0 to 5 Years) and At-Risk Patients (6 to 64 Years) (1 of 2 - PCV) [facility] Start: 1972 [facility] Start: 1967 MMR Vaccines (1 of 1 - Standard series) MMR Vaccines (1 of 1 - Standard series) [facility] Start: 1967 [facility] Start: 04-25-1967 COVID-19 Vaccine (#1) COVID-19 Vaccine (#1) [facility] Start: 1966 Hepatitis B Vaccines (1 of 3 - 3-dose series) Hepatitis B Vaccines (1 of 3 - 3-dose series) [facility] Start: 1966 Hepatitis C screening Hepatitis C screen [place], [place] Start: 1966 HIV screening [facility] Start: 1966 Medicare Advantage Annual Wellness Visit (AWV) Medicare Advantage Annual Wellness Visit (AWV) [facility] Start: 1966 Screening for malignant neoplasm of colon [facility] Start: 1966 [place] End: 10-19-2024 Aerobic and Anaerobic Culture with Stain [employer] Work Phone: Comment on above: Release Upon Ordering for 1 Occurrences starting 10/19/2024 Once (Lab) for 1 Occ urrences starting 10/19/2024 until 10/19/2024 Aerobic and Anaerobi c Culture with Stain Aerobic and Anaerobic Culture with Stain Microbiology Routine 10/19/2024 3:08 PM [facility] [place] End: 06-14-2019 Anaerobic Culture Anaerobic Culture Microbiology Routine One Time for 1 Occurrences starting 06/14/2019 until 06/14/2019 [place] Comment on above: One Time for 1 Occurrences starting 05/2019 until 06/14/2019 Bacteria identified in Unspecified specimen by Aerobe culture Culture, Aerobic Bacteria with Gram Stain Microbiology Routine 10/19/2024 3:08 PM [facility] [place] Bacteria identified in Unspecified specimen by Anaerobe culture Anaerobic culture Microbiology Routine Acute cholecystitis 10/19/2024 1:52 PM [facility] [place] Bacteria identified in Unspecified specimen by Anaerobe culture Anaerobic culture Microbiology Routine 10/19/2024 3:08 PM [facility] [place] End: 08-08-2023 Bacteria identified in Urine by Culture [employer] Work Phone: Comment on above: STAT (Lab) for 1 Occurrences starting until 08/08/2023 End: 07-10-2025 Bacteria identified in Urine by Culture [employer] Work Phone: Comment on above: Once (Lab) for 1 Occurrences starting until 07/10/2025 End: 10-13-2023 Blood gases, arterial measurement [employer] Work Phone: End: 08-08-2023 Blood gases, venous measurement Blood gas, venous (ACH and SBH) Lab STAT Once (Lab) for 1 Occurrences starting 08/08/2023 until 08/08/2023 [employer] Work Phone: Comment on above: Once (Lab) for 1 Occurrences starting until 08/08/2023 End: 12-09-2023 Blood gases, venous measurement Blood gas, venous (ACH and SBH) Lab STAT Once (Lab) for 1 Occurrences starting 12/09/2023 until 12/09/2023 [facility] Work Phone: Comment on above: Once (Lab) for 1 Occurrences starting until 12/09/2023 End: 09-18-2020 CBC CBC Lab Routine Tomorrow AM for 1 Occurrences starting 09/18/2020 until 09/18/2020 [facility] Comment on above: Tomorrow AM for 1 Occurrences starting 1 11/18/2019 until 09/18/2020 End: 09-19-2020 CBC Auto Differential CBC Auto Differential Lab Timed Tomorrow AM for 1 Occurrences starting 09/19/2020 until 09/19/2020 [facility] Comment on above: Tomorrow AM for 1 Occurrences starting 1 11/19/2019 until 09/19/2020 End: 11-25-2020 CBC Auto Differential CBC Auto Differential Lab Timed Tomorrow AM for 1 Occurrences starting 11/25/2020 until 11/25/2020 [facility] Comment on above: Tomorrow AM for 1 Occurrences starting 0 11/25/2020 until 11/25/2020 End: 09-19-2020 Comprehensive metabolic 2000 panel Comprehensive Metabolic Panel Lab Timed Tomorrow AM for 1 Occurrences starting 09/19/2020 until 09/19/2020 [facility] [place] Comment on above: Tomorrow AM for 1 Occurrences starting 1 11/19/2019 until 09/19/2020 Comprehensive metabo lic 2000 panel Comprehensive Metabolic Panel Lab Routine Daily until discontinued starting 11/23/2020, 6 completed [facility] Comment on above: Daily until discontinued starting 2020, 6 completed End: 11-25-2020 Comprehensive metabolic 2000 panel Comprehensive Metabolic Panel Lab Timed Tomorrow AM for 1 Occurrences starting 11/25/2020 until 11/25/2020 [facility] Comment on above: Tomorrow AM for 1 Occurrences starting 0 11/25/2020 until 11/25/2020 Comprehensive Metabo lic Panel w/ Reflex to MG Comprehensive Metabolic Panel w/ Reflex to MG Lab Routine Daily until discontinued starting 06/15/2019, 6 completed [place] Comment on above: Daily until discontinued starting 2018, 6 completed End: 06-26-2019 Culture Blood #1 Culture Blood #1 Microbiology STAT One Time for 1 Occurrences starting 06/26/2019 until 06/26/2019 [place] Comment on above: One Time for 1 Occurrences starting 06/08 until 06/26/2019 Culture Blood #1 Culture Blood # 1 Microbiology STAT 06/26/2019 10:05 PM EDT [place] End: 06-26-2019 Culture Blood #2 Culture Blood #2 Microbiology STAT One Time for 1 Occurrences starting 06/26/2019 until 06/26/2019 [place] Comment on above: One Time for 1 Occurrences starting 06/08 until 06/26/2019 Culture Blood #2 Culture Blood # 2 Microbiology STAT 06/26/2019 10:05 PM EDT [place] End: 06-14-2019 Culture, Aerobic Bacteria with Gram Stai Culture, Aerobic Bacteria with Gram Stai Microbiology Routine One Time for 1 Occurrences starting 06/14/2019 until 06/14/2019 [place] Comment on above: One Time for 1 Occurrences starting 05/2019 until 06/14/2019 End: 12-08-2020 Culture, Urine [place] Comment on above: One Time for 1 Occurrences starting 11/10 until 12/08/2020 Once for 1 Occurrenc es starting 12/08/2020 until 12/08/2020 Culture, Urine Culture, Urine Microbiology STAT 12/08/2020 5:14 PM EST [place] ECG 12 lead ECG 12 lead CV E CG STAT 10/24/2024 11:04 AM EST [facility] Work Phone: EKG 12 Lead [facility] [place] End: 09-18-2020 HbA1c (Bld) [Mass fraction] Hemoglobin A1C Lab Routine One Time for 1 Occurrences starting 09/18/2020 until 09/18/2020 [place] Comment on above: One Time for 1 Occurrences starting 09/08 until 09/18/2020 Initiate Oxygen Ther apy Protocol Initiate Oxygen Therapy Protocol Respiratory Care Routine Daily until discontinued starting 06/14/2019 [facility] [place] Comment on above: Daily until discontinued starting 2018 End: 06-18-2019 Occult blood x 3, stool Occult blood x 3, stool Lab Routine One Time for 1 Occurrences starting 06/18/2019 until 06/18/2019 [facility] Comment on above: One Time for 1 Occurrences starting 06/08 until 06/18/2019 Oxygen therapy [[facility] Data Set] Initiate Oxygen Therapy Protocol Respiratory Care Routine Daily until discontinued starting 09/18/2020 [facility] Comment on above: Daily until discontinued starting 2019 End: 09-17-2020 POCT Glucose POCT Glucose Point of Care Testing Routine Every 30 Min for 4 Occurrences starting 09/17/2020 until 09/17/2020 [facility] Comment on above: Every 30 Min for 4 Occurrences starting 09/17/2020 until 09/17/2020 POCT Glucose [facility] [place] Comment on above: As Needed [...] for 1 Occurrences starting 06/15/2019 until 06/15/2019 [facility] Comment on above: One Time for 1 Occurrences starting 06/2019 until 06/15/2019 End: 06-16-2019 POCT Glucose POCT Glucose Point of Care Testing Routine One Time for 1 Occurrences starting 06/16/2019 until 06/16/2019 [facility] Comment on above: One Time for 1 Occurrences starting 07/2019 until 06/16/2019 Procalcitonin Procalcitonin La b Routine Q48H until discontinued starting 06/14/2019, 3 completed [facility] Comment on above: Q48H until discontinued starting 019, 3 completed End: 11-26-2020 Troponin I.cardiac [Mass/Vol] Troponin Lab Timed One Time for 1 Occurrences starting 11/26/2020 until 11/26/2020 [facility] [place] Comment on above: One Time for 1 Occurrences starting 11/08 until 11/26/2020 Immunizations Immunization Date Immunization Notes Care Provider Argenis mo 10-19-2024 influenza vaccine tiss-cult subunt (Flucelvax) STANDARD-DOSE injection 0.5 mL Dontrell Glozman DO Work Phone: [facility] [employer] 08-18-2023 influenza vac subuni t quadrivalent (Flucelvax) injection 0.5 mL Aaron Burgos DO Work Phone: [facility] [employer] 02-26-2022 Covid-19, Pfizer Gra y Top, Do Not Dilute, (Age 12 Y+), Im, L Geronimo Lee MD Work Phone: [facility] [employer] 08-12-2021 influenza, injectabl e, quadrivalent, preservative free Geronimo Lee MD Work Phone: [facility] [employer] 08-12-2021 Rosaura Woodson Work Phone: [facility] 08-12-2021 influenza virus vacc ine, unspecified formulation Geronimo Lee MD Work Phone: [facility] 12-04-2020 Pfizer SARS-CoV-2 Vaccination Geronimo Lee MD Work Phone: [facility] 11-13-2020 Pfizer SARS-CoV-2 Vaccination Geronimo Lee MD Work Phone: [facility] 01-14-2019 influenza, injectabl e, quadrivalent, preservative free Dom Ortiz [facility] [place] [place] 01-14-2019 Influenza, Quadv, 6 mo and older, IM, PF (Flulaval, Fluarix) Justin Walsh [facility] [place] 01-14-2019 Rosaura Woodson Work Phone: [facility] NEGATED: Highlighted row has not occurred!10-09-2023 Influenza, injectable, Madin Tran Canine Kidney, preservative free, quadrivalent Rosaura Mustafa DO Work Phone: [facility] Comment on above: Deferred: Contraindi cation - patient received at facility Payers Date Payer Category Payer Medicaid HMO [id number] 2024 Medicare [id number] 2024 Self-pay [id number] 2024 Unknown [id number] 2022 Medicare [id number] 2022 Medicare HMO [id number] 2022 Private Health Insurance [facility] DUAL [facility] D[facility] [id number] 2022-Present [phone] [address] [address] [place] [address] Medicare HMO [id number] 2022 Medicaid MEDICAID - [facility] [place] [id number] 2022-Present [address] [place] [address] Medicaid [id number] 2017 Private Health Insurance [facility] DUAL xxxxxxxxx 2017-Present [address] [place] [address] xxxxxxxxx [id number] 1959 Private Health Insurance [id number] Unknown [id number]. 462 Unknown [id number] [id number]. 462 Unknown [id number] [id number]. 462 Unknown [id number] [id number]. 462 Unknown [id number] [id number]. 462 Unknown [id number] [id number]. 462 Unknown [id number] [id number]. 462 Unknown [id number] [id number]. 462 Unknown [id number] [id number]. 462 Unknown [id number] 2.840.1.953299.3.579.2. 462 Unknown [id number] [id number]. 462 Unknown [id number] [id number]. 462 Unknown [id number] [id number]. 462 Unknown [id number] 2.840.1.530386.3.579.2. 462 Unknown [id number] [id number]. 462 Unknown [id number] 2.840.1.257815.3.579.2. 462 Unknown [id number]. 462 Social History Date Type Detail Facility Start: 06-26-2019 End: 02-01-2025 Tobacco smoking status [facility] Never smoker [place] Start: 06-26-2019 End: 10-19-2024 Alcohol intake No [facility] Start: 1965 Sex Assigned At Not on file M [facility] [place] Start: 01-02-2020 End: 06-08-2025 Alcohol intake Current non-drinker of alcohol (finding) [facility] [place] Start: 09-20-2020 End: 02-01-2025 Tobacco use and exposure Never used [facility] [place] Start: 01-30-2023 End: 03-08-2023 Exposure to SARS-CoV-2 (event) Not sure [facility] [place] Start: 1965 Sex Assigned At Male [facility] Tobacco smoking status [facility] Tobacco smoking consumption unknown [facility] Work Phone: Start: 03-08-2023 History SDOH Alcohol Frequency 1 [facility] Start: 03-08-2023 History SDOH Alcohol Std Drinks 0 [facility] Start: 03-08-2023 End: 10-19-2024 History of Social function [facility] How often to you hav e a drink containing alcohol? Never [facility] How many standard drinks containing alcohol do you have on a typical day? Patient does not drink [facility] Start: 08-27-2022 Gender identity Identifies as male gender (finding) [facility] Within the last year , have you been afraid of your partner or ex-partner? No [facility] Start: 1965 Sex Assigned At Female [facility] How often to you hav e a drink containing alcohol? Monthly or less [facility] How many standard drinks containing alcohol do you have on a typical day? 1 or 2 [facility] Start: 06-08-2022 End: 02-28-2025 Sex Female (finding) [facility] Do you feel stress - tense, restless, nervous, or anxious, or unable to sleep at night because your mind is troubled all the time - these days [OSQ] Only a little [facility] (I/We) worried whether (my/our) food would run out before (I/we) got money to buy more. Never true [facility] How often do you nee d to have someone help you when you read instructions, pamphlets, or other written material from your doctor or pharmacy [SILS] Sometimes [facility] NEGATED: Highlighted rowStart: DAVEF History of tobacco use Passive smoker [facility] Clinical Notes 11-28-2020 to 07-11-2025 Discharge InstructionsLeidy Fritz RN - 07/10/2025 3:49 PM EDTErbassam Fritz RN - 07/10/2025 3:49 PM EDTTelephone Encounter - Rhina Benjamin - 07/05/2025 3:23 PM EDTPatient InstructionsAttachments Note Date & Type Note Facility 07-11-2025 Note Sinus rhythm Abnormal R-wave progression, late transition Left ventricular hypertrophy Borderline prolonged QT interval Electronically Signed On 07-11-2025 00:56:44 EDT by [facility] 07-11-2025 Note Sinus rhythm Abnormal R-wave progression, late transition Left ventricular hypertrophy Borderline prolonged QT interval Electronically Signed On 07-11-2025 00:56:44 EDT by [facility] 07-11-2025 Note IMPRESSION: Sinus rhythm Abnormal R-wave progression, late transition Left ventricular hypertrophy Borderline prolonged QT interval Electronically Signed On 07-11-2025 00:56:44 EDT by [facility] 07-10-2025 Hospital Discharg e instructions Toi Cole [...] other concerning symptoms. documented in this encounter [facility] 07-10-2025 Emergency department Note Pt here to the ER via EMS from [facility] c/o headache and nausea for the last couple of days. documented in this encounter [facility] 07-10-2025 Emergency department Triage note Pt here to the ER via EMS from SNF c/o headache and nausea for the last couple of days. [facility] 07-05-2025 Telephone encounter Note Appointment scheduled on 07/26 at 11am [facility] 07-05-2025 Miscellaneous Notes Appointment scheduled on 07/26 at 11am Images from the original note were not included. Patient's BGL 04/26-07/02/2025 documented in this encounter [facility] 07-04-2025 Telephone encounter Note Images from the original note were not included. Patient's BGL 04/26-07/02/2025 [facility] 07-04-2025 Telephone encounter Note I called the facility to request another copy. [facility] 07-04-2025 Miscellaneous Notes I called the facility to request another copy. The pages are cut off I cannot see the doses completely Images from the original note were not included. Patient's BGL documented in this encounter [facility] 06-29-2025 Telephone encounter Note Downloaded blood glucose log and insulin administration MAR to media tab for the period of 06/08 through 06/29 for provider review. [facility] 06-29-2025 Miscellaneous Notes Downloaded blood glucose log and insulin administration MAR to media tab for the period of 06/08 through 06/29 for provider review. Spoke with Susan KIM at the [facility] and requested a new BGL with accompanying [...] dates 06/08/25 - 06/22/25 Spoke with Sheri RN at the facility who says she will fax the MAR record for 05/29 through 06/18 for comparison with the BGL by provider. Fax number provided was [phone] Spoke with RN caring for Maria Luisa at the facility regarding need for MAR for 05/29 through 06/18 to be faxed for provider review for use of SSI and any missed doses. She states she will fax the MAR records from 05/29 - 06/18 to [phone]. Please ask for MAR and med list I need to know if SS is ever used. Thank you Images from the original note were not included. Patient's BGL documented in this encounter [facility] 06-29-2025 Telephone encounter Note Spoke with Susan JULIO at the [facility] and requested a new BGL with accompanying insulin administration record for 06/08-06/29 for provider review. States she will send it herself. Will watch for information and upload into media tab. [facility] 06-28-2025 Telephone encounter Note The pages are cut off I cannot see the doses completely [employer] Phone: 06-27-2025 Telephone encounter Note Images from the original note were not included. Patient's BGL [facility] [employer] 06-26-2025 Telephone encounter Note Spoke with Sheri GUILLORY at the facility. She will re-fax the insulin administration records for 05/29-06/18 for comparison with the BG log sent previously. [facility] [employer] 06-22-2025 Telephone encounter Note Unfortunately half the document is cut off I cannot see what the Humulin U-500 base dose is, its on 1 page On the second page I can see the sliding scale inTarvoT [employer] Phone: 06-22-2025 Telephone encounter Note Scanned faxed MAR from facility into media tab for dates 06/08/25 - 06/22/25 [facility] Telephone encounter Note Spoke with Sheri GUILLORY at the facility who says she will fax the MAR record for 05/29 through 06/18 for comparison with the BGL by provider. Fax number provided was [phone] [facility] 06-20-2025 Telephone encounter Note Spoke with RN caring for Maria Luisa at the [facility] regarding need for MAR for 05/29 through 06/18 to be faxed for provider review for use of SSI and any missed doses. She states she will fax the MAR records from 05/29 - 06/18 to [phone]. [facility] 06-20-2025 Telephone encounter Note Please ask for MAR and med list I need to know if SS is ever used. Thank you [facility] 06-19-2025 Telephone encounter Note Images from the original note were not included. Patient's BGL [facility] 06-07-2025 Telephone encounter Note Images from the original note were not included. Patient's BGL [facility] 06-07-2025 Miscellaneous Notes Images from the original note were not included. Patient's BGL documented in this encounter [facility] 06-07-2025 Nurse Note Spoke with Ninfa at [facility] and updated her about of the patient's procedures being cancelled due to low oxygen levels after the start of the EGD. Advised that per Dr. Chavez patient will need cardiac and pulmonary clearance prior to any future endoscopy procedures. See MD report. Skilled transport to arrive at 12:30 to take patient back to [facility]. At 12:55 spoke with transport company [phone] who said it would be another 30 minutes before they would arrive. Patient given shannon crackers and roselia enriqueta for complaints of hunger. [facility] 06-07-2025 Miscellaneous Notes Spoke with Ninfa at [facility] and updated her about of the patient's procedures being cancelled due to low oxygen levels after the start of the EGD. Advised that per Dr. Chavez patient will need cardiac and pulmonary clearance prior to any future endoscopy procedures. See MD report. Skilled transport to arrive at 12:30 to take patient back to [facility]. At 12:55 spoke with transport company [phone] who said it would be another 30 minutes before they would arrive. Patient given shannon crackers and roselia enriqueta for complaints of hunger. [facility] Will [facility]into Procedure Date: 06/07/2025 10:37 AM Gender: Female Date of : 1965 Age: 59 Admit Type: Outpatient Note Status: Finalized Endoscopist: Farhad Chavez MD, [id number] Procedure: Upper GI endoscopy Indications: h/o anemia, [...] This was discussed with Anesthesia doctor and [employer] who were in the procedure room and [...] by the physician, the nurse and the epic analyst in the pre-procedure area in the procedure [...] 06/07/2025 10:37 AM documented in this encounter [facility] 06-07-2025 Note Pt saturation starte d falling dropped and procedure was stopped. Procedure aborted for safety. [facility] 06-07-2025 Nurse Note Pt saturation started falling dropped and procedure was stopped. Procedure aborted for safety. [facility] 06-07-2025 Nurse Note Pt saturation started falling dropped and procedure was stopped. Procedure aborted for safety. Spoke with patient's niece Jovana Quesada regarding consent for procedure. She states that patient is able to sign his own consents. documented in this encounter [facility] 06-07-2025 Procedure note [facility] Name: Will Jacinto Procedure Date: 06/07/2025 10:37 AM Gender: Female Date of : 1965 Age: 59 Admit Type: Outpatient Note Status: Finalized Endoscopist: Farhad Chavez MD, [id number] Procedure: Upper GI endoscopy Indications: h/o anemia, [...] This was discussed with Anesthesia doctor and [employer] who were in the procedure room and [...] by the physician, the nurse and the epic analyst in the pre-procedure area in the procedure [...] 0 Note Initiated On: 06/07/2025 10:37 AM [facility] 06-07-2025 Note Spoke with patient's niece Jovana Quesada regarding consent for procedure. She states that patient is able to sign his own consents. [facility] 06-07-2025 Nurse Note Spoke with patient's niece Jovana Quesada regarding consent for procedure. She states that patient is able to sign his own consents. 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 [...] lower leg COVID 12/08/2021 Depression Diabetes mellitus ([facility]) Type II, on insulin Disease [...] (HCC) Sleep apnea no CPAP Venous insufficiency [employer] Work Phone: 06-07-2025 Note [facility] 06-07-2025 History and physical note GASTROENTEROLOGY [...] side (HCC) Anxiety disorder Bipolar 1 disorder ([facility]) Blood circulation, collateral Cellulitis chronic L lower leg COVID 12/08/2021 Depression Diabetes mellitus ([facility]) Type II, on insulin Disease of blood and blood forming organ Endometrial carcinoma ([facility]) 11/25/2020 Endometrial hyperplasia Foot ulcer ([facility]) Hx of blood clots RLE prior to amputation Hyperlipidemia Hypertension Lymphedema 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 Farhad Chavez EGD/Colonoscopy Date: 06/07/25 Arrival time: 10:00 am Please report to: [place] [address] Spoke with Nabil at [facility] , confirmed patient will attend scheduled procedure. All questions or concerns addressed. Pt has prep medication on hand. Prep instructions sent via [employer] if active. [facility] 06-04-[address] Farhad Chavez EGD/Colonoscopy Date: 06/07/25 Arrival time: 10:00 am Please report to: [facility] [address] [place] [address] Spoke with Nabil at [facility] , confirmed patient will attend scheduled procedure. All questions or concerns addressed. Pt has prep medication on hand. Prep instructions sent via [employer] if active. Dr. Farhad Chavez EGD/Colonoscopy Date: 06/07/25 Arrival time: 10:00 am Please report to: [facility] [address] [place] [address] Spoke with Jose Raul at [facility] , confirmed patient will attend scheduled procedure. All questions or concerns addressed. Pt has prep medication on hand. Prep instructions sent via [employer] if active. Prep instructions faxed to [facility] Attn: Jose Raul. [phone] documented in this encounter [facility] 06-01-2025 Telephone encounter Note I have reviewed [...] [] Other () Med rec updated: NA [facility] 06-01-2025 Miscellaneous Notes I have reviewed the [...] included. Patient's BGL documented in this encounter [facility] 05-31-2025 Telephone encounter Note Images from the original note were not included. Patient's BGL [facility] 05-31-[address] Farhad Chavez EGD/Colonoscopy Date: 06/07/25 Arrival time: 10:00 am Please report to: [place] [address] Spoke with Jose Raul at [facility] , confirmed patient will attend scheduled procedure. All questions or concerns addressed. Pt has prep medication on hand. Prep instructions sent via [employer] if active. [facility] Attn: Jose Raul. [phone] [facility] 05-18-2025 Telephone encounter Note Called intermediate and talk with nurse, she don't know and transfer to organisational psychologist, put me in hold for 25 min and never answer, if they call back please ask what they need . Thank you. [facility] 05-18-2025 Miscellaneous Notes Called intermediate and talk with nurse, she don't know and transfer to organisational psychologist, put me in hold for 25 min and never answer, if they call back please ask what they need . Thank you. Not sure what is being asked. Did not order dietary restrictions, only recommendations. Please advise! Name of caller: Lisa Contact phone number: [phone] Relationship to Patient: Nurse at [facility] Provider: KELLEY Schultz Practice: Endo Chief Complaint/Reason for Call: Patient is being non compliant with no low carb diet restrictions. They are asking for an order to go back to unrestricted diet. Please advise. Best time of day caller can be reached: Any Patient advised that office/PCP has 24-48 business hours to return their call: Yes documented in this encounter [facility] 05-18-2025 Telephone encounter Note Not sure what is being asked. Did not order dietary restrictions, only recommendations. [facility] 05-14-2025 Telephone encounter Note Please advise! [facility] 05-14-2025 Telephone encounter Note Name of caller: Lisa Contact phone number: [phone] Relationship to Patient: Nurse at [facility] Provider: KELLEY Schultz Practice: [place] Chief Complaint/Reason for Call: Patient is being non compliant with no low carb diet restrictions. They are asking for an order to go back to unrestricted diet. Please advise. Best time of day caller can be reached: Any Patient advised that office/PCP has 24-48 business hours to return their call: Yes [facility] 05-07-2025 Telephone encounter Note Called patient's intermediate and informed. [facility] 05-07-2025 Miscellaneous Notes Called patient's intermediate and informed. Continue current doses Recommend future BGLs be sent in 4 week intervals. Or sooner if experiencing hypoglycemia or persistent elevations. Images from the original note were not included. Patient's BGL documented in this encounter [facility] 05-07-2025 Telephone encounter Note Continue current doses Recommend future BGLs be sent in 4 week intervals. Or sooner if experiencing hypoglycemia or persistent elevations. [facility] 05-07-2025 Telephone encounter Note Images from the original note were not included. Patient's BGL [facility] 05-01-2025 Telephone encounter Note Called patient nurse at intermediate and informed. [facility] 05-01-2025 Miscellaneous Notes Called patient nurse at intermediate and informed. Blood glucose log variable. 6/18-6/19 elevated. 6-04/30 at goal except for one check. Continue current doses and limit carbs/improve diet. Recommend future BGLs be sent in 4 week intervals. Or sooner if experiencing hypoglycemia or persistent elevations. Images from the original note were not included. Patient's BGL documented in this encounter [facility] 05-01-2025 Telephone encounter Note Blood glucose log variable. 6/18-6/19 elevated. 04/27-04/30 at goal except for one check. Continue current doses and limit carbs/improve diet. Recommend future BGLs be sent in 4 week intervals. Or sooner if experiencing hypoglycemia or persistent elevations. [facility] 04-30-2025 Telephone encounter Note Images from the original note were not included. Patient's BGL [facility] 04-20-2025 Telephone encounter Note Called and relayed the TE below to the pt's nurse. [facility] 04-20-2025 Miscellaneous Notes Called and relayed the TE below to the pt's nurse. Continue current doses. Future blood glucose log's requested to have 2 weeks of data. BGL downloaded in media for your review. Thanks documented in this encounter [facility] 04-19-2025 Miscellaneous Notes Continue current doses. Future blood glucose log's requested to have 2 weeks of data. BGL downloaded in media for your review. Thanks documented in this encounter [facility] 04-19-2025 Telephone encounter Note Continue current doses. Future blood glucose log's requested to have 2 weeks of data. [facility] 04-17-2025 Telephone encounter Note BGL downloaded in media for your review. Thanks [facility] 04-06-2025 Telephone encounter Note Images from the original note were not included. [facility] fax #: [phone]. [facility] 04-06-2025 Miscellaneous Notes Images from the original note were not included. Faxed BG recommendation to [facility] at fax #: [phone]. Good Afternoon, I reviewed blood sugars for Maria Luisa, and they are mostly stable. There are no hypoglycemic events and blood sugars are not in the 300s on this log which is fantastic. No changes recommended at this time. Thanks! Images from the original note were not included. Patient's BGL Name of caller: Jose Raul Contact phone number: [phone] Relationship to Patient: [facility] Provider: JEREMY Stephens CNP Practice: 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 Please be advised. Best time of day caller can be reached: Any Patient advised that office/PCP has 24-48 business hours to return their call: Yes documented in this encounter [facility] 04-06-2025 History of Presen t illness Narrative Images from the original note were not included. [facility] [address] [place] [address] Dept: [phone] Dept Loc: [phone] Visit type: Established patient Reason for Visit: Follow-up and Diabetes Mellitus Assessment and Plan 1. Type 2 diabetes mellitus with hyperglycemia, with long-term current use of insulin (HCC) - AMB POC HEMOGLOBIN A1C - Comprehensive metabolic panel - Microalbumin / creatinine urine ratio 2. Type 2 diabetes mellitus with diabetic autonomic neuropathy, with long-term current use of insulin (HCC) 3. Hypertension associated with type 2 diabetes mellitus (HCC) 4. Mixed diabetic hyperlipidemia associated with type 2 diabetes mellitus (HCC) - Lipid panel 5. 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: [place] Initial [facility] office visit: Inpatient [...] fingers, couple slices of pizza Meats, Salad, stateless or ranch dressing Beverages: Crystal light, Diet [...] Acquired absence of other toe(s), unspecified side ([facility]) Anxiety disorder Bipolar 1 disorder ([facility]) Blood circulation, collateral Cellulitis chronic L lower leg COVID 12/08/2021 Depression Diabetes mellitus ([facility]) Type II, on insulin Disease of blood and blood forming organ Endometrial carcinoma ([facility]) 11/25/2020 Endometrial hyperplasia Foot ulcer ([facility]) Hx of blood clots RLE prior to amputation Hyperlipidemia Hypertension Lymphedema 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; no specimens WISDOM TOOTH EXTRACTION Family History [...] found for: CHOLHDLRATIO No results found for: [id number] Imaging/Testing: Portions of the information within this encounter were entered using an electronic dictation system. Best attempts were made to edit/proofread the information prior to note completion. Despite the review of information, some errors may remain. If there are questions related to the information contained within the note please contact the signing physician directly. documented in this encounter [facility] 04-05-2025 Telephone encounter Note Good Afternoon, I reviewed blood sugars for Maria Luisa, and they are mostly stable. There are no hypoglycemic events and blood sugars are not in the 300s on this log which is fantastic. No changes recommended at this time. Thanks! [facility] 04-05-2025 Telephone encounter Note Images from the original note were not included. Patient's BGL [facility] 03-27-2025 Telephone encounter Note Name of caller: Jose Raul Contact phone number: [phone] Relationship to Patient: [facility] Provider: JEREMY Stephens CNP Practice: 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 Please be advised. Best time of day caller can be reached: Any Patient advised that office/PCP has 24-48 business hours to return their call: Yes [facility] 02-27-2025 Telephone encounter Note Images from the original note were not included. Patient's BGL [facility] 02-27-2025 Miscellaneous Notes Images from the original note were not included. Patient's BGL documented in this encounter [facility] 02-16-2025 Telephone encounter Note [facility]axed [facility] to [facility] at fax #: [phone]. [facility] 02-16-2025 Miscellaneous Notes Faxed letter to [facility] at fax #: [phone]. I reviewed the blood glucose log. Blood [...] included. Patient's BGL documented in this encounter [facility] 02-15-2025 Telephone encounter Note I reviewed the blood glucose log. Blood sugars remain variable. Please increase U500 insulin to 150 before breakfast, 130 before lunch and 150 before dinner. If blood sugar before meal is 90-120, give half dose If less than 90 and patient eating little carbohydrates for meal, hold u500 dose. Thank you, JEREMY Schuster CNP [facility] 02-15-2025 Telephone encounter Note Images from the original note were not included. Patient's BGL [facility] 02-13-2025 Telephone encounter Note Called [facility] to offer cancel the LNC visit per provider. Visit canceled. [facility] 02-13-2025 Miscellaneous Notes Called [facility] [place] to offer cancel the LNC visit per provider. Visit canceled. Lung nodule stable-does not need f/up CT reviewed-from Oct. He declined sleep med referral. I do not have to see him. I would recommend that they cancel f/up. Nodule unchanged for 2 yrs.. [facility] to schedule Annual follow up. Follow up scheduled for 03/02/2025. Patient is non weight bearing and uses a deedee. Further question is whether they bring with deedee or ambulance cot. Please advise. [facility] Radiology called stating that CT chest wo IV contrast order will before its completion. Requested new order to be placed. Please advise. documented in this encounter [facility] 02-12-2025 Note Lung nodule stable-d oes not need f/up CT reviewed-from Oct. He declined sleep med referral. I do not have to see him. I would recommend that they cancel f/up. Nodule unchanged for 2 yrs.. [facility] 02-12-2025 Telephone encounter Note Lung nodule stable-does not need f/up CT reviewed-from Oct. He declined sleep med referral. I do not have to see him. I would recommend that they cancel f/up. Nodule unchanged for 2 yrs.. [facility] [employer] Work Phone: 02-12-2025 Miscellaneous Notes Lung nodule stable-does not need f/up CT reviewed-from Oct. He declined sleep med referral. I do not have to see him. I would recommend that they cancel f/up. Nodule unchanged for 2 yrs.. Nurse from [facility] called to schedule Annual follow up. Follow up scheduled for 03/02/2025. Patient is non weight bearing and uses a deedee. Further question is whether they bring with deedee or ambulance cot. Please advise. [facility] Radiology called stating that CT chest wo IV contrast order will before its completion. Requested new order to be placed. Please advise. documented in this encounter [facility] 02-12-2025 Telephone encounter Note Nurse from [facility] called to schedule Annual follow up. Follow up scheduled for 03/02/2025. Patient is non weight bearing and uses a deedee. Further question is whether they bring with deedee or ambulance cot. Please advise. [facility] 02-09-2025 Telephone encounter Note Faxed new orders to [facility] at fax #: [phone]. [facility] 02-09-2025 Miscellaneous Notes [facility]ax[facility] at fax #: [phone]. I reviewed blood sugars. Blood sugars are [...] included. Patient's BGL documented in this encounter [facility] 02-08-2025 Telephone encounter Note I reviewed blood [...] 102 Bedtime Blood sugars: 302, 108, 194 [facility] 02-08-2025 Miscellaneous Notes I reviewed blood sugars. [...] included. Patient's BGL documented in this encounter [facility] 02-08-2025 Telephone encounter Note [facility] Radiology called stating that CT chest wo IV contrast order will before its completion. Requested new order to be placed. Please advise. [facility] 02-08-2025 Miscellaneous Notes [facility] Radiology called stating that CT chest wo IV contrast order will before its completion. Requested new order to be placed. Please advise. documented in this encounter [facility] 02-07-2025 Telephone encounter Note Images from the original note were not included. Patient's BGL [facility] 02-01-2025 History of Presen t illness Narrative Vascular Surgery Outpatient Consultation Chief Complaint Patient presents with New Patient Dr. Guzman/ venous insufficiency, arterial occlusion? Reason for Consult: PVD Requesting Physician: Dr. Guzman HISTORY OF PRESENTILLNESS: The patient is a 59 y.o. adult with significant medical hx listed below, who is here for evaluation of PAD. Pt is from [facility] [place]. He is in a wheelchair. He states [...] side (HCC) Anxiety disorder Bipolar 1 disorder ([facility]) Blood circulation, collateral Cellulitis chronic L lower leg COVID 12/08/2021 Depression Diabetes mellitus ([facility]) Type II, on insulin Disease [...] 06/29/2023 Dr Sergio Sibley at [facility]; no specimens WISDOM TOOTH EXTRACTION Current Medications: [...] u500 dose. 01/01/25 Margo Guerrero APRN - KRANTHI lactulose (Kristalose) 20 g packet [...] file Stress: No Stress Concern Present (10/19/2024) [employer] - Occupational Stress Questionnaire [...] This Visit Circulatory PAD (peripheral artery disease) ([facility]) - Primary Relevant Orders Vascular US lower extremity arterial PVR Other Visit Diagnoses Hx of AKA (above knee amputation), right (HCC) Lymphedema of left leg Morbid obesity ([facility]) Pt with hx of right AKA and [...] results of PVR documented in this encounter [facility] 01-31-2025 Telephone encounter Note Called [facility] linda/jesus Moise released message as written, she stated that she understood. [facility] 01-31-2025 Miscellaneous Notes Called [facility] linda/jesus Moise released message as [...] included. Patient's BGL documented in this encounter [facility] 01-30-2025 Telephone encounter Note Blood sugars are extremely variable. Breakfast blood sugars can vary between 101-304 Lunch blood sugars between 135-308 Dinner variations between 93-336 Insulin doses can not be modified for riskof hypoglyamcia or hyperglycemia. Limit oral intake to 60 grams of carbs per meal and 15 grams of carbs/snack. [facility] 01-29-2025 Telephone encounter Note Images from the original note were not included. Patient's BGL [facility] 01-19-2025 Telephone encounter Note Faxed orders to [facility] at fax #: [phone]. [facility] 01-19-2025 Miscellaneous Notes Faxed orders to [facility] at fax #: [phone]. I reviewed blood sugar logs. Blood sugars [...] included. Patients BGL documented in this encounter [facility] 01-17-2025 Telephone encounter Note I reviewed blood [...] in addition to the current medication doses. [facility] 01-15-2025 Telephone encounter Note Images from the original note were not included. Patients BGL [facility] 01-02-2025 Telephone encounter Note Labs Noted [facility] 01-02-2025 Miscellaneous Notes Labs Noted Images from the original note were not included. Requested BGLs and a recent CMP was received , please advise. documented in this encounter [facility] 01-01-2025 Telephone encounter Note Images from the original note were not included. Requested BGLs and a recent CMP was received , please advise. [facility] 01-01-2025 History of Presen t illness Narrative Images from the original note were not included. [facility] [place] [address] [address] [facility] [address] [place] [address] Dept: [phone] Dept Loc: [phone] Visit type: Established patient Reason for Visit: Hospital Follow-up, Diabetes Mellitus, and Hyperglycemia Assessment and Plan 1. Type 2 diabetes mellitus with hyperglycemia, with long-term current use of insulin ([facility]) - Microalbumin / creatinine urine ratio 2. Type 2 diabetes mellitus with diabetic autonomic neuropathy, with long-term current use of insulin ([facility]) 3. S/P AKA (above knee amputation) unilateral, right ([facility]) 4. Mixed hyperlipidemia - Lipid panel 5. Microalbuminuria 6. Essential hypertension 7. Class 3 severe obesity due to excess calories with serious comorbidity and body mass index (BMI) of 45.0 to 49.9 in adult ([facility]) A1c 6.9 as of 10/19/2024. 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: [place] Initial [facility] office visit: Inpatient [...] fingers, couple slices of pizza Meats, Salad, stateless or ranch dressing Beverages: Crystal light, Diet [...] Acquired absence of other toe(s), unspecified side ([facility]) Anxiety disorder Bipolar 1 disorder ([facility]) Blood circulation, collateral Cellulitis chronic L lower leg COVID 12/08/2021 Depression Diabetes mellitus ([facility]) Type II, on insulin Disease of blood and blood forming organ Endometrial carcinoma ([facility]) 11/25/2020 Endometrial hyperplasia Foot ulcer ([facility]) Hx of blood clots RLE prior to amputation Hyperlipidemia Hypertension Lymphedema 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; no specimens WISDOM TOOTH EXTRACTION Family History [...] found for: CHOLHDLRATIO No results found for: [id number] Imaging/Testing: Portions of the information within this encounter were entered using an electronic dictation system. Best attempts were made to edit/proofread the information prior to note completion. Despite the review of information, some errors may remain. If there are questions related to the information contained within the note please contact the signing physician directly. documented in this encounter [facility] 01-01-2025 Instructions JEREMY Vincent CNP - 01/01/2025 11:00 AM EST Please send Ophthalmology Note once completed this year. Please note if any insulin doses are held on blood log. documented in this encounter [facility] 12-29-2024 Telephone encounter Note Called [facility]/jesus Ocasio released message as written, no insulin has been held. [facility] 12-29-2024 Miscellaneous Notes Called [facility]/jesus Ocasio released message as written, no insulin [...] Name of caller: Ninfa Contact phone number: [phone] Relationship to Patient: [facility] Provider: KRANTHI Guerrero Practice: [facility] Chief Complaint/Reason for Call: Ninfa states [...] note were not included. Faxed orders from [facility] to [facility] I have reviewed the pt's glucose [...] included. Patients BGL documented in this encounter [facility] 12-27-2024 Telephone encounter Note Roberto Ocasio, I [...] and management of the insulin doses. Thanks! [facility] 12-27-2024 Miscellaneous Notes Hi Ninfa, I received [...] Name of caller: Ninfa Contact phone number: [phone] Relationship to Patient: Lindsay Altagracia Provider: KRANTHI Guerrero Practice: [facility] Chief Complaint/Reason for Call: Ninfa states [...] included. Faxed orders [facility] I have reviewed the pt's glucose [...] included. Patients BGL documented in this encounter [facility] 12-22-2024 Telephone encounter Note Please advise. [facility] 12-22-2024 Miscellaneous Notes Please advise. Name of caller: Ninfa Contact phone number: [phone] Relationship to Patient: [facility] Provider: KRANTHI Guerrero Practice: [facility] Chief Complaint/Reason for Call: Ninfa states [...] note were not included. Faxed orders from [facility] to [facility] I have reviewed the pt's glucose [...] BGL documented in this encounter [facility] [employer] 12-22-2024 Telephone encounter Note Name of caller: Ninfa Contact phone number: [phone] Relationship to Patient: [facility] Provider: KRANTHI Guerrero Practice: [facility] Chief Complaint/Reason for Call: Ninfa states she would like to know at what point should they hold the insulin regular (HumuLIN R) 500 UNIT/ML CONCENTRATED injection for the patient. Please review. Best time of day caller can be reached: any Patient advised that office/PCP has 24-48 business hours to return their call: Yes [facility] [employer] 12-22-2024 Telephone encounter Note Images from the original note were not included. Faxed orders from [facility] to [facility] [employer] 02-13-2025 History of Presen t illness Narrative Patient was verified by name and . Images from the original note were not included. [facility] [place] [address] [facility] [address] Dept: [phone] Dept Loc: [phone] Visit type: New Reason for Visit: New [...] without cholecystitis without obstruction BMI 50.0-59.9, adult ([facility]) 59 year old male referred by Rosy Espinosa CNP, re: calculus of gallbladder without cholecystitis without obstruction. Patient hospitalized 10/18/2024-10/23/2024 @ [facility] 2/2 acute cholecystitis. Blood sugars uncontrolled and [...] patient's first colonoscopy --referral previously placed to [facility] Advised patient to call office with [...] or weakness. Patient is referred by Rosy Espinosa CNP, re: calculus of gallbladder without cholecystitis without obstruction. He presents from facility, [facility] (residing since 2018). He has pmh DM2, morbid obesity, bipolar, schizophrenia, JOHN, lymphedema, HTN, diabetic neuropathy, and hx osteomyelitis of RLE with right AKA. Patient was hospitalized 10/18/2024-10/23/[address] [facility] related to acute cholecystitis. Due to medical [...] to surgical intervention. He was referred to [facility]. Presently denies nausea and vomiting. Having [...] 10/18/2024 Priority: Medium NOY (acute kidney injury) ([facility]) 12/31/2023 Priority: Medium Acinetobacter lwoffi infection 10/09/2023 Priority: Medium Bacteremia due to Gram-negative bacteria 10/09/2023 Priority: Medium Hypoglycemia due to insulin 10/07/2023 Priority: Medium Hypothermia, not associated with low environmental temperature 10/07/2023 Priority: Medium Sepsis without acute organ dysfunction ([facility]) 10/07/2023 Priority: Medium Abdominal pain 08/19/2023 Priority: Medium Upper abdominal pain 08/17/2023 Priority: Medium Chest pain 06/28/2023 Priority: Medium Chest pain, unspecified type 06/28/2023 Priority: Medium Hypertension 11/25/2020 Priority: Medium Hyperlipidemia 10/07/2021 Thickened endometrium 11/26/2020 Complex endometrial hyperplasia with atypia 11/26/2020 Diabetic gastroparesis associated with type 2 diabetes mellitus ([facility]) ([facility]) 11/26/2020 Endometrial carcinoma ([facility]) 11/25/2020 Endometrial hyperplasia 11/25/2020 Diabetic hyperosmolar non-ketotic state ([facility]) ([facility]) 11/25/2020 Chronic acquired lymphedema 11/25/2020 Chronic osteomyelitis ([facility]) ([facility]) 11/25/2020 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 ([facility]) 11/25/2020 Type 2 diabetes mellitus with hyperglycemia, with long-term current use of insulin ([facility]) 11/25/2020 Hyperglycemia 11/25/2020 S/P AKA (above knee amputation) unilateral, right ([facility]) 11/25/2020 Ileus ([facility]) ([facility]) 09/27/2020 Esophagitis 09/22/2020 Nausea and vomiting 09/22/2020 Diabetic foot infection ([facility]) 06/14/2019 Post-menopausal bleeding 05/16/2019 Cellulitis 01/17/2019 Class 3 severe obesity due to excess calories with serious comorbidity and body mass index (BMI) of 60.0 to 69.9 in adult ([facility]) 01/13/2019 Left leg cellulitis 01/11/2019 [...] negative sonographic Caldwell's sign reported by the environmental health technologist. Pancreas: Largely obscured by bowel gas. [...] Physician MD MUNIZ REYNALDO C. Accession Number [id number] CPT4 Codes 52822 () Reason For Exam nausea, diabetees Report [...] 4:03 PM 12/21/24 documented in this encounter [facility] 12-21-2024 Instructions JEREMY Kinsey CNP - 12/21/2024 8:30 AM EST --Please call office with any questions or concerns! [phone] --Schedule EGD (upper endoscopy) and colonoscopy for [...] be sent through Care Everywhere.Upper GI Endoscopy (Nauruan)Colonoscopy ([place]auruan)documented in this encounter [facility] 12-21-2024 Telephone encounter Note I have reviewed [...] will assist with stabilizing blood sugars. Thanks! [facility] [employer] 12-20-2024 Telephone encounter Note Images from the original note were not included. Patients BGL [facility] [employer] 12-07-2024 History of Presen t illness Narrative Images from the original note were not included. Lilo Rizo MD General Surgery Outpatient Post-Operative/Follow Up Office Note Patient ID: Will Jacinto [id number] 59 y.o. 1965 Interval History 12/07/24: Patient [...] 06/29/2023 Dr Sergio Sibley at [facility]; no specimens WISDOM TOOTH EXTRACTION Medications Prior [...] daily. 11/28/24 Yes Margo Guerrero APRN - KRANTHI lisinopril 40 MG tablet Take 0.5 tablets [...] No Stress: No Stress Concern Present (10/19/2024) [employer] - Occupational Stress Questionnaire [...] Behavior normal. Orders Placed This Encounter Procedures [facility] WM-Surgical Wt Mgmt Program ASSESSMENT AND PLAN: [...] education and counseling. documented in this encounter [facility] 12-06-2024 Telephone encounter Note LVM with intermediate(primary number in account) for home health scheduler to call back to schedule follow up appointment with Her[facility]. [facility] 12-06-2024 Miscellaneous Notes LVM with intermediate(primary number in account) for home health scheduler to call back to schedule follow up [...] is tentatively scheduled for CT chest imaging for-. Please review most recent imaging and advise if patient should keep imaging appointment and/or have scheduled follow-up sooner with provider. documented in this encounter [facility] 12-01-2024 Note [facility] 12-01-2024 Telephone encounter Note Images from the original note were not included. Faxed new insulin order to [facility] at fax #: [phone]. [facility] 12-01-2024 Miscellaneous Notes Images from the original note were not included. Faxed new insulin order to [facility] at fax #: [phone]. I have reviewed the pt's glucose log. [...] included. Patient's BGL documented in this encounter [facility] 12-01-2024 Note IMPRESSION: Sinus rhythm Abnormal R-wave progression, late transition Left ventricular hypertrophy Borderline prolonged QT interval Electronically Signed On 12-01-2024 00:32:34 EST by Aaron Burgos [facility] 11-30-2024 Note [facility] 11-28-2024 Telephone encounter Note I have reviewed the pt's glucose log. Based on interpretation of the FSBS data I recommend the following changes to the pt's antihyperglycemic regimen: Please increase Humulin u500 to 140 units three times daily before meals. Med rec updated: Yes [facility] 11-28-2024 Miscellaneous Notes I have reviewed the [...] included. Patient's BGL documented in this encounter [facility] 11-28-2024 Telephone encounter Note Images from the original note were not included. Patients BGL [facility] 11-22-2024 Telephone encounter Note I have reviewed [...] until we ensure blood sugars remain stable. [facility] 11-22-2024 Telephone encounter Note Unable to reach [facility] at [facility] to reschedule appt with Makayla Guerrero on 11/27/2024. Called [facility] again at [phone] and spoke to Quiana again. Rescheduled pt to 01/01/25 and per Quiana, [facility] will call if there is a problem with this date/time. [facility] 11-22-2024 Miscellaneous Notes Unable to reach [facility] at [facility] to reschedule appt with Makayla Guerrero on 11/27/2024. Called [facility] again at [phone] and spoke to Quiana again. Rescheduled pt to 01/01/25 and per Quiana Suri will call if there is a problem with this date/time. documented in this encounter [facility] 11-21-2024 Telephone encounter Note Called the intermediate and spoke with the pts nurse nabil, [...] new logs in two weeks, she understood. [facility] 11-21-2024 Miscellaneous Notes Called the intermediate and spoke with the pts nurse nabil, [...] included. Patient's BGL documented in this encounter [facility] 11-21-2024 Telephone encounter Note Images from the original note were not included. Patient's BGL [facility] 11-20-2024 Telephone encounter Note Addendum completed. Sending message to provider as FYI, please indicate if/when patient needs fu with provider to review. Will forward to staff to schedule if indicated. Thank you. [facility] 11-20-2024 Miscellaneous Notes Addendum completed. Sending message [...] is tentatively scheduled for CT chest imaging for-. Please review most recent imaging and advise if patient should keep imaging appointment and/or have scheduled follow-up sooner with provider. documented in this encounter [facility] 11-19-2024 Telephone encounter Note I have reviewed the pt's glucose log. Based on interpretation of the FSBS data I recommend the following changes to the pt's antihyperglycemic regimen: Blood sugars are variable with 5 doses recently held. Can we clarify if patient has been sick or had decreased appetite that caused recent change in insulin needs? [employer] Work Phone: 11-19-2024 Miscellaneous Notes I have [...] included. Patient's BGL documented in this encounter [facility] 11-15-2024 Telephone encounter Note Images from the original note were not included. Patient's BGL [facility] 11-14-2024 Telephone encounter Note Noted. Request emailed to radiology team. [facility] 11-14-2024 Miscellaneous Notes Noted. Request emailed to [...] sooner with provider. documented in this encounter [facility] 11-14-2024 History of Presen t illness Narrative Images from the original note were not included. Asuncion Valencia APRN-[facility] General Surgery Outpatient Post-Operative/Follow Up Office Note Patient ID: Will Jacinto [id number] y.o. 1965 This is a 59 [...] 06/29/2023 Dr Sergio Sibley at [facility]; no specimens WISDOM TOOTH EXTRACTION Medications Prior [...] No Stress: No Stress Concern Present (10/19/2024) [employer] - Occupational Stress Questionnaire [...] 11/14/2024 12:47 PM documented in this encounter [facility] 11-13-2024 Telephone encounter Note Patient appeared on [...] and/or have scheduled follow-up sooner with provider. [facility] 11-12-2024 Hospital Discharg e instructions JEREMY Hilliard CNP - 11/12/2024 11:44 PM EST The drain coming out after 3+ weeks is okay at this time CT and labs are unremarkable patient can follow-up in the surgery office as an outpatient. The following attachments cannot be sent through Care Everywhere.Gallstones Discharge Instructions (Nauruan)documented in this encounter [facility] 11-12-2024 Emergency department Note Emergency Department Encounter [facility] ED Patient: Will Jacinto : 1965 Date of Evaluation: 11/12/2024 ED Supervising Physician: Sam Escobar MD I personally evaluated Will Jacinto and [...] to contact the dictating provider for clarification.) Sam Escobar MD [facility] Sam Escobar MD 11/12/24 2220 documented in this encounter [facility] 11-12-2024 Physician Emergency department Note Emergency Department Encounter [facility] ED Patient: Will Jacinto : 1965 Date of Evaluation: 11/12/2024 ED Supervising Physician: Sam Escobar MD I personally evaluated Will Jacinto and [...] to contact the dictating provider for clarification.) Sam Escobar MD Acute Care [facility] Sam Escobar MD 11/12/242219 [employer] Phone: 11-10-2024 History of Presen t illness Narrative Images from the original note were not included. Asuncion Valencia APRN-[facility] General Surgery Outpatient Post-Operative/Follow Up Office Note Patient ID: Will Jacinto [id number] y.o. 1965 This is a 59 [...] 06/29/2023 Dr Sergio Sibley at [facility]; no specimens WISDOM TOOTH EXTRACTION Medications Prior [...] No Stress: No Stress Concern Present (10/19/2024) [employer] - Occupational Stress Questionnaire [...] 11/10/2024 11:32 AM documented in this encounter [facility] 10-30-2024 Telephone encounter Note Released message to nurse [facility] 10-30-2024 Miscellaneous Notes Released message to nurse BG log reviewed. No changes to current meds. Send log as needed; otherwise, has appt 11/27 with Ana Maria. Please remind SNF to send BGL and MAR to visit. Thank you! Images from the original note were not included. Patient's BGL documented in this encounter [facility] 10-30-2024 Telephone encounter Note BG log reviewed. No changes to current meds. Send log as needed; otherwise, has appt 11/27 with Ana Maria. Please remind SNF to send BGL and MAR to visit. Thank you! [facility] [employer] Work Phone: 10-30-2024 Telephone encounter Note Images from the original note were not included. Patient's BGL [facility] 10-24-2024 Telephone encounter Note Shayy called back we scheduled an appointment with Ana Maria on 11/27/24 and another one on 03/27/25 with Thalia. [facility] 10-24-2024 Miscellaneous Notes Shayy called back we scheduled an appointment with Ana Maria on 11/27/24 and another one on 03/27/25 with Thalia. Called [facility] at [phone] and spoke to Quiana who states that I need to to speak to Suri, and she is currently out of the office. Per Quiana, she will have Suri call back to schedule. Direct phone number to the [place] office was given. Needs to be seen for follow up with any provider, will need [facility] to arrange transportation so that patient can be seen in office ans no longer available to manage over the phone documented in this encounter [facility] 10-24-2024 Hospital Discharg e instructions Baldev Ortiz MD - 10/24/2024 12:53 PM EST Please return to the Emergency Room if you have dizziness, shortness of breath, falls, new or worsening symptoms. documented in this encounter [facility] 10-24-2024 Emergency department Note Pt placed on bedpan, urine sample collected and sent to lab. [facility] 10-24-2024 Emergency department Note Pt placed on bedpan, urine sample collected and sent to lab. Pt provided with sandwich and pop, ok per Dr Swartz Per pt he is not having any [...] Pt is DNR-CCA. documented in this encounter [facility] 10-24-2024 Emergency department Note Pt provided with sandwich and pop, ok per Dr Swartz [facility] 10-24-2024 Emergency department Note Per pt he is not having any blood in his urine, his gallbladder drain is newly placed (3 days ago), pt states the drainage has been the same in color since it was placed, denies pain, denies drainage to site. Pt states has no complaints other than concern for low BG and feeling cold. [facility] 10-24-2024 Emergency department Note Pt arrives by [facility] for blood in urine and change in mental status. Pt has chronic lewis and has blood present. BP elevated, BG 154 (low per SNF because pt is normally in 300 range). Pt is DNR-CCA. [facility] 10-24-2024 Telephone encounter Note Called [facility] at [phone] and spoke to Quiana who states that I need to to speak to Suri, and she is currently out of the office. Per Quiana, she will have [facility] call back to schedule. Direct phone number to the [place] office was given. [facility] 10-23-2024 Nurse Note Report called to Nabil GUILLORY at [facility]. [facility] 10-23-2024 Nurse Note Report called to Nabil GUILLORY at [facility]. Report called to [address] [place] [address] for transfer. Notified Lisa Lopes APRN and Dr. Thomas regarding patients BS. New orders placed. documented in this encounter [facility] 10-23-2024 Note Formatting of this n ote might be different from the original. Discharge med list transmitted to return back to [facility] via [facility] per TCC request. [facility] 10-23-2024 Note Formatting of this n ote might be different from the original. Discharge med list transmitted to return back to [facility] via [facility] per TCC request. [facility] 10-23-2024 Miscellaneous Notes Discharge med list transmitted to return back to [facility] via [facility] per TCC request. Asked by [facility] to set transport to [facility]. The BLS Vehicle you requested for Will Batista in unit/room [facility] [id number] on 10/23/2024 is scheduled to arrive at 2:30pm EST! [facility] is handling this ride and you can contact them at . Pt, nurse, unit sec, TCC, and facility informed of time. DC orders in and signed by Dr. Thomas. EQUIPMENT OPERATOR/LABORER/SUPERVISOR set up transport. YARD DEMURRAGE CLERK tasked in [facility] to send DC info [facility] . DC back to F in stable condition. . Problem: Knowledge Deficit [...] Maintained or Improved Outcome: Progressing Did update [facility] via [facility] that attending would like patient to return to their facility tomorrow on po antibiotics. Will have TCC coverage for tomorrow follow for reply. Patient is assisted at the facility and does not need auth to return. Care Management Progress Note Pt remains on 2E. Endo, ID, gen surg, and gastro following. Biliary drain in place, culture in process. Receiving IV ATB. Fecal occult stool positive. Discharge plan is back to [facility] when medically ready. He is a bedhold and will not need auth to return unless he goes back as skilled. southeast regional sales manager to follow and assist as needed. Length of Stay (Days): 2 GMLOS: 3.5 Problem: Potential for Compromised Skin Integrity Goal: Skin Integrity is Maintained or Improved Outcome: Progressing Problem: Urinary Incontinence Goal: Perineal skin integrity is maintained or improved Outcome: Progressing Sent updated notes to return back to [facility] via [facility] per TCC request. Await review and response regarding ability to accept. TCC notified. Referral placed to return back to [facility] via [facility] per TCC request. Await review and response regarding ability to accept. TCC notified. Care Managment Initial Assessment Date: 10/19/2024 Patient Name: Will Jacinto : 1965 Patient Information Source of Information: Patient Cognition/Language: WFL - Within Functional Limits Permission given to speak with patient indirect sales representative/caregiver as indicated: Confirmation of Payer with patient/family: Payer Name: [place]: Confirmation of Primary Care Physician: Primary Caregiver: Other (Comment) (Facility staff) If assistance needed, confirmed caregiver ready, willing and able to care for patient at discharge: Confirmed with: Living Arrangements Current Residence: Number of Floors Number of Entry Steps: Bed/Bath Levels: Facility: [facility] Plan to Return: Yes Lives with: Other [...] Plan Patient expects to be discharged to: [facility] Discharge Planning Actions: Continue to follow Patient's Choice Rights and [employer] and Collaborative Relationships Disclosed as Indicated for Post-Acute Care: Interdisciplinary Team Engagement: Social Work Referral for: Additional Information: Pt admitted to for gall bladder inflammation. Met with pt at bedside, introduced self and explained role. Pt has insurance with RX coverage, active with PCP. He is a LTC resident at [facility] and would like to return to facility. Pt requires assistance with all ADLS. Requires a deedee for transfers. Tasked [facility] to send return referral to [facility]. Gen surg and ID following. Endocrinology consulted. Receiving IV ATB and fluids. NPO at this time. Pt to have biliary drain placed today. Fecal occult stool positive. Discharge plan will be to return to [facility] once medically ready. southeast regional sales manager to follow and assist as needed. [...] improved Outcome: Progressing documented in this encounter [facility] 10-23-2024 Note Formatting of this n ote might be different from the original. Asked by [facility] to set transport to [facility]. The [employer] Vehicle you requested for Will Batista in unit/room [facility] [id number] on 10/23/2024 is scheduled to arrive at 2:30pm EST! [facility] is handling this ride and you can contact them at . Pt, nurse, unit sec, TCC, and facility informed of time. [facility] 10-23-2024 Note Formatting of this n ote might be different from the original. Asked by [facility] to set transport to [facility]. The BLS Vehicle you requested for Will Batista in unit/room [facility] [id number] on 10/23/2024 is scheduled to arrive at 2:30pm EST! [facility] is handling this ride and you can contact them at . Pt, nurse, unit sec, TCC, and facility informed of time. [facility] 10-23-2024 History of Presen t illness Narrative Patient discharged before I was able to round on patient. Patient admitted to [facility] with acute cholecystitis and treated medically. Patient uses U500 130 units tidac and Lantus 47 units bid at home. Insulin doses are reduced due to hospitalization. Blood sugars reviewed and remain elevated. Recommendations: Discharge patient on home doses of: u500 130 units tidac, Lantus 47 units bid Images from the original note were not included. [facility] - Infectious Diseases Attending Progress [...] 1511 Aerobic and Anaerobic Culture with Stain [[id number]] Bile In process Component Value No component results 10/19/2024 1508 10/19/2024 2159 Culture, Aerobic Bacteria with Gram Stain [[id number]] Bile Preliminary result Component Value Culture Culture in progress P Gram Stain Result Few Polymorphonuclear leukocytes per low power field P No organisms seen P 10/19/2024 1508 10/19/2024 1511 Anaerobic culture [[id number]] Bile In process Component Value No component results 10/19/2024 1352 10/20/2024 1147 Culture, Aerobic Bacteria with Gram Stain [[id number]] Bile from Gallbladder Preliminary result Component Value Culture No growth at 18-24 hours P Gram Stain Result Few Polymorphonuclear leukocytes per low power field P No organisms seen P 10/19/2024 1352 10/19/2024 1415 Aerobic and Anaerobic Culture with Stain [[id number]] Bile from Gallbladder In process Component Value No component results 10/19/2024 1352 10/19/2024 1415 Anaerobic culture [[id number]] Bile from Gallbladder In process Component Value No component results 10/19/2024 0155 10/19/2024 0207 Occult blood, stool [[id number]] (Abnormal) Stool from Per Rectum Final result Component Value Fecal occult blood Positive Abnormal 10/18/2024 2343 10/20/2024 0735 Urine culture [[id number]] Urine, Clean Catch Final result Component Value Urine Culture Insignificant growth based on current clinical guidelines Lines: PIV site ok Radiography/Echo/Other: US guided percutaneous peritoneal or retroperitoneal fluid collection drainage [[id number]] Collected: 10/19/241420 Order Status: Completed Updated: 10/19/241422 [...] advanced. Subcutaneous tract was dilated. An 8 Cypriot drainage catheter advanced over the wire. The catheter was attached to a bag. A dressing was applied. Impression: Successful placement of a drainage catheter into the gallbladder using ultrasound guidance. Report Dictated on Electronically Signed By: Alfredito Baumann MD Electronically Signed Date/Time: 10/19/2024 2:22 PM EST US abdomen limited [[id number]] Collected: 10/18/242011 Order Status: Completed Updated: 10/18/242021 [...] PM EST CT abdomen pelvis w contrast [[id number]] Collected: 10/18/241904 Order Status: Completed Updated: 10/18/241913 Narrative: Patient Name: WILL JACINTO : 1965 [facility]#: [id number] Exam Date/Time: 10/18/2024 17:21 Procedure: CT ABDOMEN [...] chest angiogram w and/or wo IV contrast [[id number]] Collected: 10/18/241856 Order Status: Completed Updated: 10/18/241912 [...] from the original note were not included. 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, RLE Morbidly obese ([facility]) Muscle weakness Osteomyelitis (HCC) Osteomyelitis (HCC) 2019 RLE Other lack of coordination Other specified soft tissue disorders Other symbolic dysfunctions Schizophrenia ([facility]) Sleep apnea no CPAP Venous insufficiency PAST SURGICAL HISTORY Past Surgical History: Procedure Laterality Date ABCESS DRAINAGE Right 09/09/2018 FOOT; ACH COLONOSCOPY 09/19/[address] Hyde DILATION AND CURETTAGE OF UTERUS 05/18/2019 HYSTEROSCOPY 12/23/2021 LEG AMPUTATION THROUGH KNEE Right 06/16/2019 UPPER GASTROINTESTINAL ENDOSCOPY N/A 06/29/2023 Dr Sergio Sibley at [facility]; no specimens WISDOM TOOTH EXTRACTION FAMILY HISTORY [...] loss Fluid Accumulation: Moderate to Severe Extremities Allergy And Immunology Chief Strength: Not Performed Nutrition Assessment: Pt is [...] most recently 6.9% (10/19/24). Pt resides at [facility]. It seems that pt has [...] (kg): 53 kg Total Energy Requirements (kcals/day): 3834-6018 kcals (28-32 kcals/kg) Weight Used for Protein [...] lb) (02/11/24) % Weight Change (Calculated): 15.2 [place] Body Weight (lbs) (Calculated): 130 lbs [place] Body Weight (Kg) (Calculated): 59 kg % [place] Body Weight (Calculated): 256.9 % BMI (kg/m2) (Calculated): 53.9 Weight Adjustment For: Amputation % Weight Adjustment: 10.1 - AKA Total Adjusted Percentage (Calculated): 10.1 Adjusted [place] Body Weight (lbs) (Calculated): 116.9 lbs Adjusted [place] Body Weight (kg) (Calculated): 53.14 kg Adjusted [...] Continue current diet Fernanda Chappell RD Contact: *[phone] or via Secure Chat Hospitalist Progress Note 10/22/2024 Subjective: Admit Date: 10/18/2024 PCP: Jared Guzman Room#: [id number] A BRIEF HOSPITAL COURSE: Admitted for abdominal [...] side (HCC) Anxiety disorder Bipolar 1 disorder ([facility]) Blood circulation, collateral Cellulitis chronic L lower leg COVID 12/08/2021 Depression Diabetes mellitus ([facility]) Type II, on insulin Disease of blood and blood forming organ Endometrial carcinoma ([facility]) 11/25/2020 Endometrial hyperplasia Foot ulcer ([facility]) Hx of blood clots RLE prior to amputation Hyperlipidemia Hypertension Lymphedema 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, RLE Morbidly obese ([facility]) Muscle weakness Osteomyelitis (HCC) Osteomyelitis ([facility]) 2019 RLE Other lack of coordination Other specified soft tissue disorders Other symbolic dysfunctions Schizophrenia ([facility]) Sleep apnea no CPAP Venous [...] Álvaro Thomas MD Division of Hospitalist Medicine [facility] Hospitalist Progress Note 10/21/2024 Subjective: Admit Date: 10/18/2024 PCP: Jared Guzman Room#: [id number] A BRIEF HOSPITAL COURSE: Admitted for abdominal [...] day course - wok on DC with insurance case manager - am labs, replace lytes prn - PT/OT/CM/SW - delirium precautions: increase activity - DVT prophylaxis: enoxaparin and encourage ambulation Advance Directive: DNR-CCA Anticipated Discharge Extended Emergency Contact Information Primary Emergency Contact: Jovana Quesada (POA) Relation: Niece Secondary Emergency Contact: Carola Lubin Mobile Relation: Other Álvaro Thomas MD Division of Hospitalist Medicine [facility] Images from the original note were not included. Attending Attestation [facility] - General Surgery Patient Name: Will [...] from the original note were not included. [facility] - Infectious Diseases Attending Progress Note Subjective: [...] 1511 Aerobic and Anaerobic Culture with Stain [[id number]] Bile In process Component Value No component results 10/19/2024 1508 10/19/2024 2159 Culture, Aerobic Bacteria with Gram Stain [[id number]] Bile Preliminary result Component Value Culture Culture in progress P Gram Stain Result Few Polymorphonuclear leukocytes per low power field P No organisms seen P 10/19/2024 1508 10/19/2024 1511 Anaerobic culture [[id number]] Bile In process Component Value No component results 10/19/2024 1352 10/20/2024 1147 Culture, Aerobic Bacteria with Gram Stain [[id number]] Bile from Gallbladder Preliminary result Component Value Culture No growth at 18-24 hours P Gram Stain Result Few Polymorphonuclear leukocytes per low power field P No organisms seen P 10/19/2024 1352 10/19/2024 1415 Aerobic and Anaerobic Culture with Stain [[id number]] Bile from Gallbladder In process Component Value No component results 10/19/2024 1352 10/19/2024 1415 Anaerobic culture [[id number]] Bile from Gallbladder In process Component Value No component results 10/19/2024 0155 10/19/2024 0207 Occult blood, stool [[id number]] (Abnormal) Stool from Per Rectum Final result Component Value Fecal occult blood Positive Abnormal 10/18/2024 2343 10/20/2024 0735 Urine culture [[id number]] Urine, Clean Catch Final result Component Value Urine Culture Insignificant growth based on current clinical guidelines Lines: PIV site ok Radiography/Echo/Other: US guided percutaneous peritoneal or retroperitoneal fluid collection drainage [[id number]] Collected: 10/19/241420 Order Status: Completed Updated: 10/19/241422 [...] advanced. Subcutaneous tract was dilated. An 8 Cypriot drainage catheter advanced over the wire. The catheter was attached to a bag. A dressing was applied. Impression: Successful placement of a drainage catheter into the gallbladder using ultrasound guidance. Report Dictated on Electronically Signed By: Alfredito Baumann MD Electronically Signed Date/Time: 10/19/2024 2:22 PM EST US abdomen limited [[id number]] Collected: 10/18/242011 Order Status: Completed Updated: 10/18/242021 [...] PM EST CT abdomen pelvis w contrast [[id number]] Collected: 10/18/241904 Order Status: Completed Updated: 10/18/241913 [...] chest angiogram w and/or wo IV contrast [[id number]] Collected: 10/18/241856 Order Status: Completed Updated: 10/18/241912 Narrative: [facility] 1965 [id number] Exam Date/Time: 10/18/2024 17:20 Procedure: CT CHEST [...] Admit Date: 10/18/2024 PCP: Jared Guzman Room#: [id number] A BRIEF HOSPITAL COURSE: Admitted for abdominal [...] Acquired absence of other toe(s), unspecified side ([facility]) Anxiety disorder Bipolar 1 disorder ([facility]) Blood circulation, collateral Cellulitis chronic L lower leg COVID 12/08/2021 Depression Diabetes mellitus ([facility]) Type II, on insulin Disease of blood and blood forming organ Endometrial carcinoma ([facility]) 11/25/2020 Endometrial hyperplasia Foot ulcer ([facility]) Hx of blood clots RLE prior to amputation Hyperlipidemia Hypertension Lymphedema 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, RLE Morbidly obese ([facility]) Muscle weakness Osteomyelitis (HCC) Osteomyelitis ([facility]) 2019 RLE Other lack of coordination Other specified soft tissue disorders Other symbolic dysfunctions Schizophrenia ([facility]) Sleep apnea no CPAP Venous [...] Jacinto : 1965 AGE: 58 y.o. Room/Bed: [facility]/[address] Admission Date: 10/18/2024 Visit Date: 10/20/2024 Reason for Endocrine Consult: IDDM on u500 Provider/Team Requesting Consult: Martha Estrada PCP: Jared Guzman Outpt Diesel Service Journeyman: Yes - Dr Lee- VV 10/27/2023 ASSESSMENT: [...] bid Outpt Follow Up-- Dr Lee or UTILITY LINEMAN as available - message sent SUBJECTIVE/HPI: CHIEF COMPLAINT: Chief Complaint Patient presents with Abdominal Pain Pt presents to er from [facility]. Pt presents with abd pain, diarrhea, chest pain. Pt presents aox4 speaking in full and complete sentences. Chest Pain Nausea Presented to ED after abdominal pain that started on Wednesday evening (10/17/2024) Found to have Acute Cholecyctitis that needs to be managed medically, patient is on u500 units at [facility] Type of DM: 2 Onset of DM: [...] found for: CHOLHDLRATIO No results found for: [id number] Lab Results Component Value Date TSH 1.037 12/31/2023 Radiology reportsas per the Radiologist Radiology: POCT glucose meter Result Date: 10/19/2024 Performed by: [facility], [address] [place] [address] CLIA ID: [id number] POCT glucose meter Result Date: 10/19/2024 Performed by: [facility], [address] [place] [address] CLIA ID: [id number] POCT glucose meter Result Date: 10/19/2024 Performed by: [facility], [address] [place] [address] CLIA ID: [id number] ECG 12 lead Sinus rhythm Left ventricular hypertrophy Anterior Q waves, possibly due to LVH Electronically Signed On 10-18-2024 23:06:53 EST by Sunitha Borja POCT glucose meter Result Date: 10/18/2024 Performed by: [facility], [address] [place] [address] CLIA ID: [id number] US abdomen limited Result Date: 10/18/2024 [facility] 1965 [id number] Exam Date/Time: 10/18/2024 19:36 Procedure: US ABDOMEN [...] [facility] 1965 [id number] Exam Date/Time: 10/18/2024 17:21 Procedure: CT ABDOMEN [...] [facility] 1965 [id number] Exam Date/Time: 10/18/2024 17:20 Procedure: CT CHEST [...] 06/29/2023 Dr Sergio Sibley at [facility]; no specimens WISDOM TOOTH EXTRACTION Allergy(ies): No [...] original note were not included. Attending Attestation [facility] - Surgery [facility] Physicians Surgery Patient Name: Will Gilliam Ophelia Date: 10/23/24 Patient seen and examined. Pain [...] answered. Lilo Rizo MD General Surgery Pager #[phone] 10:55 AM 10/23/2024 GENERAL SURGERY Progress Note [...] soft tissue disorders Other symbolic dysfunctions Schizophrenia ([facility]) Sleep apnea no CPAP Venous [...] Thomas MD Division of Hospitalist Medicine Acute [facility] Images from the original note were not included. PHYSICAL THERAPY [facility] Name/MRN: Maria Luisa Jcainto ([id number]) Date: 10/19/2024 PT evaluation orders received and chart review completed. Pt is a detention-care resident at [facility]. Per documentation this admission and on previous admissions, this patient is non-ambulatory, requires a deedee lift for transfers to a w/c at baseline and does not complete bed mobility. No acute PT needs identified. Rec return to [facility] at discharge. Sandra De Guzman, PT documented in this encounter [facility] 10-23-2024 Note Formatting of this n ote might be different from the original. DC orders in and signed by Dr. Thomas. [facility] set up transport. YARD DEMURRAGE CLERK tasked in [facility] to send DC info [facility] . DC back to [facility] in stable condition. . [facility] 10-23-2024 Note Formatting of this n ote might be different from the original. DC orders in and signed by Dr. Thomas. [facility] set up transport. YARD DEMURRAGE CLERK tasked in [facility] to send DC info Cole Frias . DC back to [facility] in stable condition. . [facility] 10-23-2024 Note [facility] 10-23-2024 Hospital course Narrative Discharge Summary [...] advanced. Subcutaneous tract was dilated. An 8 Cypriot drainage catheter advanced over the wire. The [...] These medications were sent to [facility] [address] [place] [address] Hours: Wednesday to Wednesday 10 am to 6 pm amoxicillin-clavulanate 875-125 MG tablet DIET: Adult diet Regular; 4 carb choices (60 gm/meal); Low Fat (less than or equal to 50 gm/day); Low Fiber ACTIVITY: No restriction. COMPLEXITY OF FOLLOW UP: [x] Moderate Complexity: follow up within 7-14 calendar days (39822) [] Severe Complexity: follow up within 7 calendar days (12659) FOLLOW UP TESTING, PENDING RESULTS OR REFERRALS AT TRANSITIONAL CARE VISIT: [x] Yes [] No PENDING STUDIES: DISPOSITION: Skilled Facility FACILITY/HOME CARE AGENCY NAME: Follow up with MD Anupama [address] [facility] [address] Schedule an appointment as soon as possible for a visit in 1 month(s) Drain follow up Jared Guzman [address] [facility] [address] Follow up in 1 week(s) [facility] G[facility]ology - [place] [address] [address] [facility] [address] Follow up for positive occult [...] 10/23/2024, 11:26 AM documented in this encounter [facility] 10-23-2024 Hospital Discharg e instructions Álvaro Thomas [...] Nurse: Ezio Dunlap RN Discharging Hospital Unit/Room#: B4464/B4463 A Discharging Unit Emergency Contact: Extended Emergency [...] 06/29/2023 Dr Sergio Sibley at [facility]; no specimens WISDOM TOOTH EXTRACTION Immunization History: [...] assistance Toileting Total assistance Feeding Total assistance Scaffold Worker Total assistance Med Delivery yes Wound Care [...] Status Date: Discharging to Facility/ Agency Name: [facility] Address:[address] [place], [place] [id number] Dialysis Facility (if applicable) Name: Address: Dialysis Schedule: Phone: Fax: [employer] Marker signature: ICIAN SECTION Name: Will Jacinto Prognosis: fair Condition at Discharge: stable Rehab Potential (if transferring to Rehab): fair Recommended Labs or Other Treatments After Discharge: CBC/CMP in 3 days and in 1 week Follow up with surgery as scheduled. The individual is being admitted to a nursing facility directly from an [facility] or a unit of a [facility] that is not operated by or licensed by [facility] under section 5119.14 or 5160-3-15.1 5 The individual requires the level of services provided by a nursing facility for the condition for which he or she was treated in the hospital and, Physician Certification: I certify the above information and transfer of Will Jacinto is necessary for the continuing treatment of the diagnosis listed and that he requires alf facility for less than 30 days. Update Admission H&P: No change in H&P PHYSICIAN SIGNATURE: documented in this encounter [facility] 10-22-2024 Plan of care note Problem: Knowledge Deficit Goal: Patient/family/caregiver demonstrates understanding of disease process, treatment plan, medications, and discharge instructions Outcome: Progressing Problem: Potential for Compromised Skin Integrity Goal: Skin Integrity is Maintained or Improved Outcome: Progressing [facility] 10-22-2024 Plan of care note Problem: Knowledge Deficit Goal: Patient/family/caregiver demonstrates understanding of disease process, treatment plan, medications, and discharge instructions Outcome: Progressing Problem: Potential for Compromised Skin Integrity Goal: Skin Integrity is Maintained or Improved Outcome: Progressing [facility] 10-21-2024 Note Formatting of this n ote might be different from the original. Did update [facility] that attending would like patient to return to their facility tomorrow on po antibiotics. Will have TCC coverage for tomorrow follow for reply. Patient is assisted at the facility and does not need auth to return. [facility] 10-21-2024 Note Formatting of this n ote might be different from the original. Did update [facility] via [facility] that attending would like patient to return to their facility tomorrow on po antibiotics. Will have TCC coverage for tomorrow follow for reply. Patient is assisted at the facility and does not need auth to return. [facility] 10-20-2024 Nurse Note Report called to [address] [place] [address] for transfer. [facility] 10-20-2024 Consult note Associated Order (s): IP WOUND CARE NURSE CONSULT TO EVAL [facility] Wound Care Prevention CONSULT Note Will Jacinto AGE: 58 y.o. GENDER: adult : 1965 Subjective: HISTORY of PRESENT ILLNESS HPI Will Gilliam McNarendralidia is a 58 y.o. adult who presents [...] Acquired absence of other toe(s), unspecified side ([facility]) Anxiety disorder Bipolar 1 disorder ([facility]) Blood circulation, collateral Cellulitis chronic L lower leg COVID 12/08/2021 Depression Diabetes mellitus ([facility]) Type II, on insulin Disease of blood and blood forming organ Endometrial carcinoma ([facility]) 11/25/2020 Endometrial hyperplasia Foot ulcer ([facility]) Hx of blood clots RLE prior to amputation Hyperlipidemia Hypertension Lymphedema 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, RLE Morbidly obese ([facility]) Muscle weakness Osteomyelitis ([facility]) Osteomyelitis ([facility]) 2019 RLE Other lack of coordination Other specified soft tissue disorders Other symbolic dysfunctions Schizophrenia ([facility]) Sleep apnea no CPAP Venous insufficiency PAST SURGICAL HISTORY Past Surgical History: Procedure Laterality Date ABCESS DRAINAGE Right 09/09/2018 FOOT; ACH COLONOSCOPY 09/19/[address] Hyde DILATION AND CURETTAGE OF UTERUS 05/18/2019 HYSTEROSCOPY 12/23/2021 LEG AMPUTATION THROUGH KNEE Right 06/16/2019 UPPER GASTROINTESTINAL ENDOSCOPY N/A 06/29/2023 Dr Sergio Sibley at [facility]; no specimens WISDOM TOOTH EXTRACTION FAMILY HISTORY [...] Geronimo DO at 10/23/2024 1:39 PM EST [facility] [employer] Work Phone: 10-20-2024 Consult note Associated Order (s): IP WOUND CARE NURSE CONSULT TO EVAL [facility] Wound Care Prevention CONSULT Note Will Jacinto [...] Acquired absence of other toe(s), unspecified side ([facility]) Anxiety disorder Bipolar 1 disorder ([facility]) Blood circulation, collateral Cellulitis chronic L lower leg COVID 12/08/2021 Depression Diabetes mellitus ([facility]) Type II, on insulin Disease of blood and blood forming organ Endometrial carcinoma ([facility]) 11/25/2020 Endometrial hyperplasia Foot ulcer ([facility]) Hx of blood clots RLE prior to amputation Hyperlipidemia Hypertension Lymphedema 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, RLE Morbidly obese ([facility]) Muscle weakness Osteomyelitis ([facility]) Osteomyelitis ([facility]) 2019 RLE Other lack of coordination Other specified soft tissue disorders Other symbolic dysfunctions Schizophrenia ([facility]) Sleep apnea no CPAP Venous insufficiency PAST SURGICAL HISTORY Past Surgical History: Procedure Laterality Date ABCESS DRAINAGE Right 09/09/2018 FOOT; ACH COLONOSCOPY 09/19/[address] Hyde DILATION AND CURETTAGE OF UTERUS 05/18/2019 HYSTEROSCOPY 12/23/2021 LEG AMPUTATION THROUGH KNEE Right 06/16/2019 UPPER GASTROINTESTINAL ENDOSCOPY N/A 06/29/2023 Dr Sergio Sibley at [facility]; no specimens WISDOM TOOTH EXTRACTION FAMILY HISTORY [...] Jacinto : 1965 AGE: 58 y.o. Room/Bed: [facility]254/B2-254 A Admission Date: 10/18/2024 Visit Date: 10/19/2024 Reason for Endocrine Consult: IDDM on u500 Provider/Team Requesting Consult: Martha Estrada PCP: Jared Guzman Outpt Diesel Service Journeyman: Yes - Dr Lee- VV 10/27/2023 ASSESSMENT: [...] bid Outpt Follow Up-- Dr lee or UTILITY LINEMAN as available - message sent SUBJECTIVE/HPI: CHIEF COMPLAINT: Chief Complaint Patient presents with Abdominal Pain [facility] Pt presents with abd pain, diarrhea, chest pain. Pt presents aox4 speaking in full and complete sentences. Chest Pain Nausea Presented to ED after abdominal pain that started on Wednesday evening (10/17/2024) Found to have Acute Cholecyctitis that needs to be managed medically, patient is on u500 units at [facility] Type of DM: 2 Onset of DM: [...] found for: CHOLHDLRATIO No results found for: [id number] Lab Results Component Value Date TSH 1.037 12/31/2023 Radiology reportsas per the Radiologist Radiology: POCT glucose meter Result Date: 10/19/2024 Performed by: [facility], [address] [facility] [address] CLIA ID: [id number] POCT glucose meter Result Date: 10/19/2024 Performed by: [facility], [address] [facility] [address] CLIA ID: [id number] POCT glucose meter Result Date: 10/19/2024 [facility]: [facility], [address] [place] [address] CLIA ID: [id number] ECG 12 lead Sinus rhythm Left ventricular hypertrophy Anterior Q waves, possibly due to LVH Electronically Signed On 10-18-2024 23:06:53 EST by Sunitha Borja POCT glucose meter Result Date: 10/18/2024 [facility]formed by: [facility], [address] [place] [address] CLIA ID: [id number] US abdomen limited Result Date: 10/18/2024 Patient Name: [facility] 1965 [id number] Exam Date/Time: 10/18/2024 19:36 Procedure: US ABDOMEN [...] 06/29/2023 Dr Sergio Sibley at [facility]; no specimens WISDOM TOOTH EXTRACTION Allergy(ies): No [...] not included. [facility] - Infectious Diseases Attending Consult [...] Acquired absence of other toe(s), unspecified side ([facility]) Anxiety disorder Bipolar 1 disorder ([facility]) Blood circulation, collateral Cellulitis chronic L lower leg COVID 12/08/2021 Depression Diabetes mellitus ([facility]) Type II, on insulin Disease of blood and blood forming organ Endometrial carcinoma ([facility]) 11/25/2020 Endometrial hyperplasia Foot ulcer ([facility]) Hx of blood clots RLE prior to amputation Hyperlipidemia Hypertension Lymphedema 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, RLE Morbidly obese ([facility]) Muscle weakness Osteomyelitis ([facility]) Osteomyelitis ([facility]) 2019 RLE Other lack of coordination Other specified soft tissue disorders Other symbolic dysfunctions Schizophrenia ([facility]) Sleep apnea no CPAP Venous insufficiency Past Surgical History: Past Surgical History: Procedure Laterality Date ABCESS DRAINAGE Right 09/09/2018 FOOT; ACH COLONOSCOPY 09/19/[address] Hyde DILATION AND CURETTAGE OF UTERUS 05/18/2019 HYSTEROSCOPY 12/23/2021 LEG AMPUTATION THROUGH KNEE Right 06/16/2019 UPPER GASTROINTESTINAL ENDOSCOPY N/A 06/29/2023 Dr Sergio Sibley at [facility]; no specimens WISDOM TOOTH EXTRACTION Current Medications: Current Facility-Administered Medications Medication Dose Route Frequency Provider Last Rate Last Admin acetaminophen (Tylenol) tablet 650 mg 650 mg Oral q6h PRN Ezra Ackerman MD Or acetaminophen (Tylenol) suppository 650 mg 650 mg Rectal q6h PRN Ezra Ackerman MD amLODIPine (Norvasc) tablet 10 mg 10 mg Oral Daily Ezra Ackerman MD 10 mg at 10/19/24 0947 ARIPiprazole (Abilify) tablet 10 mg 10 mg Oral Daily Ezra Ackerman MD 10 mg at 10/19/24 0947 aspirin EC tablet 81 mg 81 mg Oral Daily Ezra Ackerman MD atorvastatin (Lipitor) tablet 10 mg 10 mg Oral Daily Ezra Ackerman MD 10 mg at 10/19/24 0947 bisacodyl (Dulcolax) EC tablet 5 mg 5 mg Oral BID PRN Ezra Ackerman MD carvedilol (Coreg) tablet 25 mg 25 mg Oral BID WC Ezra Ackerman MD 25 mg at 10/19/24 0947 dextrose 5 % infusion 100 mL/hr IntraVENous PRN Ezra Ackerman MD dextrose 50 % solution 12.5 g 12.5 g IntraVENous PRN Ezra Ackerman MD fentaNYL (Sublimaze) injection IntraVENous PRN Alfredito Baumann MD 50 mcg at 10/19/24 1350 ferrous sulfate tablet 325 mg 325 mg Oral Daily with breakfast Ezra Ackerman MD 325 mg at 10/19/24 0946 FLUoxetine (PROzac) capsule 40 mg 40 mg Oral Daily Ezra cAkerman MD 40 mg at 10/19/24 0946 gabapentin (Neurontin) capsule 100 mg 100 mg Oral BID Ezra Ackerman MD 100 mg at 10/19/24 0946 glucagon (human recombinant) injection 1 mg 1 mg IntraMUSCular PRN Ezra Ackerman MD glucose oral gel 15 g 15 g Oral PRN Ezra Ackerman MD hydrALAZINE (Apresoline) tablet 25 mg 25 mg Oral TID Ezra Ackerman MD 25 mg at 10/19/24 0947 HYDROmorphone (Dilaudid) injection 0.25 mg 0.25 mg IntraVENous q4h PRN Álvaro Thomas MD influenza vaccine tiss-cult subunt (Flucelvax) STANDARD-DOSE injection 0.5 mL 0.5 mL IntraMUSCular Prior to discharge Ezra Ackerman MD insulin glargine (Lantus) injection 45 Units 45 Units SubCUTAneous BID Ezra Ackerman MD Insulin Lispro (Humalog) injection 0-12 Units 0-12 Units SubCUTAneous 4x daily AC & HS Ezra Ackerman MD 8 Units at 10/19/24 1226 ipratropium-albuterol (Duo-Neb) 0.5-2.5 mg/3 mL nebulizer solution 3 mL 3 mL Nebulization 4x daily PRN Ezra Ackerman MD 3 mL at 10/18/24 2301 lactated Ringer's infusion 50 mL/hr IntraVENous Continuous Álvaro Thomas MD 50 mL/hr at 10/19/24 1222 50 mL/hr at 10/19/24 1222 lidocaine PF (Xylocaine) 2 % injection Infiltration PRN Alfredito Baumann MD 5 mL at 10/19/24 1350 magnesium hydroxide (Milk of Magnesia) 400 MG/5ML suspension 30 mL 30 mL Oral Nightly Ezra Ackerman MD Melatonin disintegrating tablet 10 mg 10 mg Oral Nightly PRN Ezra Ackerman MD 10 mg at 10/18/24 2223 [Held by provider] metoclopramide (Reglan) tablet 10 mg 10 mg Oral 4x daily AC & HS Ezra Ackerman MD 10 mg at 10/19/24 0631 midazolam (Versed) injection IntraVENous PRN Alfredito Baumann MD 1 mg at 10/19/24 1350 naloxone (Narcan) injection 0.4 mg 0.4 mg IntraVENous q5 min PRN Álvaro Thomas MD ondansetron ODT (Zofran-ODT) disintegrating tablet 4 mg 4 mg Oral q8h PRN Ezra Ackerman MD Or ondansetron (Zofran) injection 4 mg 4 mg IntraVENous q6h PRN Ezra Ackerman MD 4 mg at 10/19/24 0041 pantoprazole (ProtoNix) 40 mg in sodium chloride (PF) 0.9 % 10 mL injection 40 mg IntraVENous BID Ezra Ackerman MD 40 mg at 10/19/24 0631 piperacillin-tazobactam (Zosyn) 3,375 mg in sodium chloride 0.9 % 50 mL IVPB Mini-Bag Plus 3,375 mg IntraVENous q8h Ezra Ackerman MD Stopped at 10/19/24 1300 sodium chloride 0.9 % infusion 5-250 mL/hr IntraVENous PRN Ezra Ackerman MD sodium chloride 0.9% (NS) flush 10 mL 10 mL IntraVENous 2 times per day Ezra Ackerman MD 10 mL at 10/18/24 2227 sodium chloride 0.9% (NS) flush 10 mL 10 mL IntraVENous PRN Ezra Ackerman MD [Held by provider] torsemide (Demadex) tablet 10 mg 10 mg Oral Daily Ezra Ackerman MD 10 mg at 10/19/24 0946 [...] file Stress: No Stress Concern Present (10/19/2024) [employer] - Occupational Stress Questionnaire [...] 18 (!) 92 % -- -- 10/18/24 185 134/63 -- -- 90 18 95 % [...] "COVID19" in the last 72 hours. 10/19/2024 653253 1415 Culture, Aerobic Bacteria with Gram Stain [[id number]] Bile from Gallbladder In process Component Value No component results 10/19/2024 02593412/20/2023 1415 Aerobic and Anaerobic Culture with Stain [[id number]] Bile from Gallbladder In process Component Value No component results 10/19/2024 68151212/20/2023 1415 Anaerobic culture [[id number]] Bile from Gallbladder In process Component Value No component results 10/19/2024 90512112/20/2023 0207 Occult blood, stool [[id number]] (Abnormal) Stool from Per Rectum Final result Component Value Fecal occult blood Positive Abnormal 10/18/2024 70833712/20/2023 0022 Urine culture [[id number]] Urine, Clean Catch In process Component Value No component results Lines: PIV site looked ok Radiography/Echo/Other: US guided percutaneous peritoneal or retroperitoneal fluid collection drainage [[id number]] Resulted: 10/19/24 1334 Order Status: Sent Updated: 10/19/24 1405 US abdomen limited [[id number]] Collected: 10/18/242011 Order Status: Completed Updated: 10/18/242021 [...] PM EST CT abdomen pelvis w contrast [[id number]] Collected: 10/18/241904 Order Status: Completed Updated: 10/18/241913 [...] chest angiogram w and/or wo IV contrast [[id number]] Collected: 10/18/241856 Order Status: Completed Updated: 10/18/241912 Narrative: [facility] Name: [facility] 1965 [id number] Exam Date/Time: 10/18/2024 17:20 Procedure: CT CHEST [...] original note were not included. Attending Attestation [facility] - Surgery [facility] Physicians Surgery Patient Name: Will Jacinto Date: [...] answered. Lilo Rizo MD General Surgery Pager #[phone] 1:56 PM 10/19/2024 Department of General Surgery [...] denies fever/chills or nausea/vomiting. 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, RLE Morbidly obese ([facility]) Muscle weakness Osteomyelitis (HCC) Osteomyelitis (HCC) 2019 RLE Other lack of coordination Other specified soft tissue disorders Other symbolic dysfunctions Schizophrenia ([facility]) Sleep apnea no CPAP Venous insufficiency Past Surgical History: Past Surgical History: Procedure Laterality Date ABCESS DRAINAGE Right 09/09/2018 FOOT; ACH COLONOSCOPY 09/19/[address] Hyde DILATION AND CURETTAGE OF UTERUS 05/18/2019 HYSTEROSCOPY 12/23/2021 LEG AMPUTATION THROUGH KNEE Right 06/16/2019 UPPER GASTROINTESTINAL ENDOSCOPY N/A 06/29/2023 Dr Sergio Sibley at [facility]; no specimens WISDOM TOOTH EXTRACTION Current Medications: [...] file Stress: No Stress Concern Present (10/19/2024) [employer] - Occupational Stress Questionnaire [...] Impression Patient Name: WILL JACINTO : 1965 [facility]#: [id number] Exam Date/Time: 10/18/2024 19:36 Procedure: US ABDOMEN [...] EST Result History US abdomen limited (Order #[id number]) on 10/18/2024 - Order Result History Report US abdomen limited: Patient Communication Add Comments Not seen Breast Imaging Recommendations Maira Luisa Jacinto No recommendations exist for this order. Risk Scores No Tyrer-Cuzick assessment data. No Risk Considerations assessment data. No NCC HBOC Guidelines assessment data. No NCCN Caro assessment data. No Risk Explanation Tyrer-Cuzick 8 assessment data. No BRCAPRO assessment data. No Myriad risk assessment data. No Arian risk assessment data. No Anne risk assessment data. No ELECTRICAL WIRER Request ID assessment data. No ELECTRICAL WIRER summons server ID assessment data. Breast Cancer Risk Navigation Events None Signed by Signed Time Phone Pager Joel Haddad MD 10/18/2024 20:21 Exam Information Status Exam Begun Exam Ended Final 10/18/2024 19:36 10/18/2024 20:00 External Results Report Open External Results Report Encounter View Encounter Study Details Open Study Details Order Transmittal Tracking US abdomen limited (Order #[id number]) on 10/18/24 Order Report US abdomen limited (Order #[id number]) on 10/18/24 CT abdomen pelvis w contrast Status: Final result Link to Procedure Log Procedure Log Orders Requiring a Screening Form Procedure Order Status Order ID Accession Number Form Status CT abdomen pelvis w contrast Completed [id number] Created PACS Images Show images for CT [...] History CT abdomen pelvis w contrast (Order #[id number]) on 10/18/2024 - Order Result History Report [...] data. No Anne risk assessment data. No ELECTRICAL WIRER Request ID assessment data. No ELECTRICAL WIRER summons server ID assessment data. Breast Cancer Risk [...] Tracking CT abdomen pelvis w contrast (Order #[id number]) on 10/18/[address] abdomen pelvis w contrast (Order #[id number]) on 10/18/24 CBC: Recent Labs 10/18/24 1640 [...] 7:30a-4:30p Wednesday-Wednesday After hours, please contact physician web consultant. Associated Order(s): Inpatient consult to Gastroenterology Images from the original note were not included. GI CONSULTATION Patient: Will Jacinto : 1965 Primary Care Physician: Jared Guzman Inpatient consult to Gastroenterology Consult performed by: Edwin Otto MD Consult ordered by: Ezra Ackerman MD REASON FOR CONSULTATION: Fecal occult [...] soft tissue disorders Other symbolic dysfunctions Schizophrenia ([facility]) Sleep apnea no CPAP Venous insufficiency PAST SURGICAL HISTORY: Past Surgical History: Procedure Laterality Date ABCESS DRAINAGE Right 09/09/2018 FOOT; ACH COLONOSCOPY 09/19/[address] Hyde DILATION AND CURETTAGE OF UTERUS 05/18/2019 HYSTEROSCOPY 12/23/2021 LEG AMPUTATION THROUGH KNEE Right 06/16/2019 UPPER GASTROINTESTINAL ENDOSCOPY N/A 06/29/2023 Dr Sergio Silbey at [facility]; no specimens WISDOM TOOTH EXTRACTION FAMILY HISTORY: [...] 650 mg, 650 mg, Rectal, q6h PRN, Ezra Ackerman MD amLODIPine (Norvasc) tablet 10 mg, 10 mg, Oral, Daily, Ezra Ackerman MD ARIPiprazole (Abilify) tablet 10 mg, 10 mg, Oral, Daily, Ezra Ackerman MD aspirin EC tablet 81 mg, 81 mg, Oral, Daily, Ezra Ackerman MD atorvastatin (Lipitor) tablet 10 mg, 10 mg, Oral, Daily, Ezra Ackerman MD bisacodyl (Dulcolax) EC tablet 5 mg, 5 mg, Oral, BID PRN, Ezra Ackerman MD carvedilol (Coreg) tablet 25 mg, 25 mg, Oral, BID WC, Ezra Ackerman MD dextrose 5 % infusion, 100 mL/hr, IntraVENous, PRN, Ezra Ackerman MD dextrose 50 % solution 12.5 g, 12.5 g, IntraVENous, PRN, Ezra Ackerman MD ferrous sulfate tablet 325 mg, 325 mg, Oral, Daily with breakfast, Ezra Ackerman MD FLUoxetine (PROzac) capsule 40 mg, 40 mg, Oral, Daily, Ezra Ackerman MD gabapentin (Neurontin) capsule 100 mg, 100 mg, Oral, BID, Ezra Ackerman MD, 100 mg at 10/18/24 2223 glucagon (human recombinant) injection 1 mg, 1 mg, IntraMUSCular, PRN, Ezra Ackerman MD glucose oral gel 15 g, 15 g, Oral, PRN, Ezra Ackerman MD hydrALAZINE (Apresoline) tablet 25 mg, 25 mg, Oral, TID, Ezra Ackerman MD influenza vaccine tiss-cult subunt (Flucelvax) STANDARD-DOSE injection 0.5 mL, 0.5 mL, IntraMUSCular, Prior to discharge, Ezra Ackerman MD insulin glargine (Lantus) injection 45 Units, 45 Units, SubCUTAneous, BID, Ezra Ackerman MD Insulin Lispro (Humalog) injection 0-12 Units, 0-12 Units, SubCUTAneous, 4x daily AC & HS AND [DISCONTINUED] Insulin Lispro (Humalog) injection 0-12 Units, 0-12 Units, SubCUTAneous, Nightly, Ezra Ackerman MD ipratropium-albuterol (Duo-Neb) 0.5-2.5 mg/3 mL nebulizer solution 3 mL, 3 mL, Nebulization, 4x daily PRN, Ezra Ackerman MD, 3 mL at 10/18/24 2301 magnesium hydroxide (Milk of Magnesia) 400 MG/5ML suspension 30 mL, 30 mL, Oral, Nightly, Ezra Ackerman MD Melatonin disintegrating tablet 10 mg, 10 mg, Oral, Nightly PRN, Ezra Ackerman MD, 10 mg at 10/18/24 2223 metoclopramide (Reglan) tablet 10 mg, 10 mg, Oral, 4x daily AC & HS, Ezra Ackerman MD, 10 mg at 10/19/24 0631 ondansetron ODT (Zofran-ODT) disintegrating tablet 4 mg, 4 mg, Oral, q8h PRN OR ondansetron (Zofran) injection 4 mg, 4 mg, IntraVENous, q6h PRN, Ezra Ackerman MD, 4 mg at 10/19/24 0041 pantoprazole (ProtoNix) 40 mg in sodium chloride (PF) 0.9 % 10 mL injection, 40 mg, IntraVENous, BID, Ezra Ackerman MD, 40 mg at 10/19/24 0631 piperacillin-tazobactam (Zosyn) 3,375 mg in sodium chloride 0.9 % 50 mL IVPB Mini-Bag Plus, 3,375 mg, IntraVENous, q8h, Ezra Ackerman MD sodium chloride 0.9 % infusion, 5-250 mL/hr, IntraVENous, PRN, Ezra Ackerman MD sodium chloride 0.9% (NS) flush 10 mL, 10 mL, IntraVENous, 2 times per day, Ezra Ackerman MD, 10 mL at 10/18/24 2227 sodium chloride 0.9% (NS) flush 10 mL, 10 mL, IntraVENous, PRN, Ezra Ackerman MD torsemide (Demadex) tablet 10 mg, 10 mg, Oral, Daily, Ezra Ackerman MD ALLERGIES: No Known Allergies REVIEW [...] POCT glucose meter Performed by: Nati Vigil [facility], [address] [place], [place] [id number] CLIA ID: [id number] @[email or web address]@ @[email or web address]@ abdomen limited Final Result 1. Cholestasis, cholelithiasis, [...] provider for clarification.) documented in this encounter [facility] 10-20-2024 Note Formatting of this n ote might be different from the original. Care Management Progress Note Pt remains on 2E. Endo, ID, gen surg, and gastro following. Biliary drain in place, culture in process. Receiving IV ATB. Fecal occult stool positive. Discharge plan is back to [facility] when medically ready. He is a bedhold and will not need auth to return unless he goes back as skilled. southeast regional sales manager to follow and assist as needed. Length of Stay (Days): 2 GMLOS: 3.5 [facility] 10-20-2024 Note Formatting of this n ote might be different from the original. Care Management Progress Note Pt remains on 2E. Endo, ID, gen surg, and gastro following. Biliary drain in place, culture in process. Receiving IV ATB. Fecal occult stool positive. Discharge plan is back to [facility] when medically ready. He is a bedhold and will not need auth to return unless he goes back as skilled. southeast regional sales manager to follow and assist as needed. Length of Stay (Days): 2 GMLOS: 3.5 [facility] 10-20-2024 Note Problem: Potential f or Compromised Skin Integrity Goal: Skin Integrity is Maintained or Improved Outcome: Progressing Problem: Urinary Incontinence Goal: Perineal skin integrity is maintained or improved Outcome: Progressing [facility] 10-20-2024 Plan of care note Problem: Potential for Compromised Skin Integrity Goal: Skin Integrity is Maintained or Improved Outcome: Progressing Problem: Urinary Incontinence Goal: Perineal skin integrity is maintained or improved Outcome: Progressing [facility] 10-20-2024 Nurse Note Notified Lisa Lopes APRN and Dr. Thomas regarding patients BS. New orders placed. [facility] 10-20-2024 Note Formatting of this n ote might be different from the original. Sent updated notes to return back to [facility] via [facility] per TCC request. Await review and response regarding ability to accept. TCC notified. [facility] 10-20-2024 Note Formatting of this n ote might be different from the original. Sent updated notes to return back to [facility] via [facility] per TCC request. Await review and response regarding ability to accept. TCC notified. [facility] 10-19-2024 Telephone encounter Note Needs to be seen for follow up with any provider, will need ECF to arrange transportation so that patient can be seen in office ans no longer available to manage over the phone [facility] 10-19-2024 Miscellaneous Notes Needs to be seen for follow up with any provider, will need ECF to arrange transportation so that patient can be seen in office ans no longer available to manage over the phone documented in this encounter [facility] 10-19-2024 Note Formatting of this n ote might be different from the original. Referral placed to return back to [facility] via [facility] per TCC request. Await review and response regarding ability to accept. TCC notified. [facility] 10-19-2024 Note Formatting of this n ote might be different from the original. Referral placed to return back to [facility] via [facility] per TCC request. Await review and response regarding ability to accept. TCC notified. [facility] 10-19-2024 Note Referral placed to r eturn back to [facility] via [facility] per TCC request. Await review and response regarding ability to accept. TCC notified. [facility] 10-19-2024 Note Formatting of this n ote might be different from the original. Care Managment Initial Assessment Date: 10/19/2024 Patient Name: Will Jacinto : 1965 Patient Information Source of Information: Patient Cognition/Language: WFL - Within Functional Limits Permission given to speak with patient indirect sales representative/caregiver as indicated: Confirmation of Payer with patient/family: Payer Name: [place]: Confirmation of Primary Care Physician: Primary Caregiver: Other (Comment) (Facility staff) If assistance needed, confirmed caregiver ready, willing and able to care for patient at discharge: Confirmed with: Living Arrangements Current Residence: Number of Floors Number of Entry Steps: Bed/Bath Levels: Facility: Long-Term/[facility] Care Facility Name: [facility] Plan to Return: Yes Lives with: Other [...] Plan Patient expects to be discharged to: [facility] Discharge Planning Actions: Continue to follow Patient's Choice Rights and [employer] and Collaborative Relationships Disclosed as Indicated for Post-Acute Care: Interdisciplinary Team Engagement: Social Work Referral for: Additional Information: Pt admitted to for gall bladder inflammation. Met with pt at bedside, introduced self and explained role. Pt has insurance with RX coverage, active with PCP. He is a LTC resident at [facility] and would like to return to facility. Pt requires assistance with all ADLS. Requires a deedee for transfers. Tasked YARD DEMURRAGE CLERK to send return referral to [facility]. Gen surg and ID following. Endocrinology consulted. Receiving IV ATB and fluids. NPO at this time. Pt to have biliary drain placed today. Fecal occult stool positive. Discharge plan will be to return to [facility] once medically ready. southeast regional sales manager to follow and assist as needed. Gill Brown RN [facility] 10-19-2024 Note Formatting of this n ote might be different from the original. Care Managment Initial Assessment Date: 10/19/2024 Patient Name: Will Jacinto : 1965 Patient Information Source of Information: Patient Cognition/Language: WFL - Within Functional Limits Permission given to speak with patient indirect sales representative/caregiver as indicated: Confirmation of Payer with patient/family: Payer Name: [place]: Confirmation of Primary Care Physician: Primary Caregiver: Other (Comment) (Facility staff) If assistance needed, confirmed caregiver ready, willing and able to care for patient at discharge: Confirmed with: Living Arrangements Current Residence: Number of Floors Number of Entry Steps: Bed/Bath Levels: Facility: Long-Term/[facility] Care Facility Name: [facility] Plan to Return: Yes Lives with: Other [...] Plan Patient expects to be discharged to: [facility] Discharge Planning Actions: Continue to follow Patient's Choice Rights and [employer] and Collaborative Relationships Disclosed as Indicated for Post-Acute Care: Interdisciplinary Team Engagement: Social Work Referral for: Additional Information: Pt admitted to for gall bladder inflammation. Met with pt at bedside, introduced self and explained role. Pt has insurance with RX coverage, active with PCP. He is a LTC resident at [facility] and would like to return to facility. Pt requires assistance with all ADLS. Requires a deedee for transfers. Tasked YARD DEMURRAGE CLERK to send return referral to [facility]. Gen surg and ID following. Endocrinology consulted. Receiving IV ATB and fluids. NPO at this time. Pt to have biliary drain placed today. Fecal occult stool positive. Discharge plan will be to return to [facility] once medically ready. southeast regional sales manager to follow and assist as needed. Gill Brown RN [facility] 10-19-2024 Consult note Associated Order (s): IP CONSULT TO ENDOCRINOLOGY Department of Internal Medicine Division of Endocrinology, Diabetes, & Metabolism Endocrinology Note Patient Name: Will Jacinto : 1965 AGE: 58 y.o. Room/Bed: B2-254/B2-254 A Admission Date: 10/18/2024 Visit Date: 10/19/2024 Reason for Endocrine Consult: IDDM on u500 Provider/Team Requesting Consult: Martha Estrada PCP: Jared Guzman Outpt Diesel Service Journeyman: Yes - Dr Lee- VV 10/27/2023 ASSESSMENT: [...] bid Outpt Follow Up-- Dr lee or UTILITY LINEMAN as available - message sent SUBJECTIVE/HPI: CHIEF COMPLAINT: Chief Complaint Patient presents with Abdominal Pain [facility]. Pt presents with abd pain, diarrhea, chest pain. Pt presents aox4 speaking in full and complete sentences. Chest Pain Nausea Presented to ED after abdominal pain that started on Wednesday evening (10/17/2024) Found to have Acute Cholecyctitis that needs to be managed medically, patient is on u500 units at [facility] Type of DM: 2 Onset of DM: [...] at 10/19/2024 1402 Last data filed at 10/18/2024 210 Gross per 24 hour Intake 75 ml [...] found for: CHOLHDLRATIO No results found for: [id number] Lab Results Component Value Date TSH 1.037 12/31/2023 Radiology reportsas per the Radiologist Radiology: POCT glucose meter Result Date: 10/19/2024 Performed by: Nati Bustos, [address] [place] [id number] CLIA ID: [id number] POCT glucose meter Result Date: 10/19/2024 Performed by: Nati Bustos, [address] [place] [id number] CLIA ID: [id number] POCT glucose meter Result Date: 10/19/2024 Performed by: [facility], [address] [facility] [address] CLIA ID: [id number] ECG 12 lead Sinus rhythm Left ventricular hypertrophy Anterior Q waves, possibly due to LVH Electronically Signed On 10-18-2024 23:06:53 EST by Sunitha Borja POCT glucose meter Result Date: 10/18/2024 Performed by: Nati [facility], [address] [facility] [address] CLIA ID: [id number] US abdomen limited Result Date: 10/18/2024 Patient [...] Acquired absence of other toe(s), unspecified side ([facility]) Anxiety disorder Bipolar 1 disorder ([facility]) Blood circulation, collateral Cellulitis chronic L lower leg COVID 12/08/2021 Depression Diabetes mellitus ([facility]) Type II, on insulin Disease of blood and blood forming organ Endometrial carcinoma ([facility]) 11/25/2020 Endometrial hyperplasia Foot ulcer ([facility]) Hx of blood clots RLE prior to amputation Hyperlipidemia Hypertension Lymphedema 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, RLE Morbidly obese ([facility]) Muscle weakness Osteomyelitis ([facility]) Osteomyelitis ([facility]) 2019 RLE Other lack of coordination Other specified soft tissue disorders Other symbolic dysfunctions Schizophrenia ([facility]) Sleep apnea no CPAP Venous insufficiency Past Surgical History: Past Surgical History: Procedure Laterality Date ABCESS DRAINAGE Right 09/09/2018 FOOT; ACH COLONOSCOPY 09/19/[address] Hyde DILATION AND CURETTAGE OF UTERUS 05/18/2019 HYSTEROSCOPY 12/23/2021 LEG AMPUTATION THROUGH KNEE Right 06/16/2019 UPPER GASTROINTESTINAL ENDOSCOPY N/A 06/29/2023 Dr Sergio Sibley at [facility]; no specimens WISDOM TOOTH EXTRACTION Allergy(ies): No [...] Lee MD at 10/20/2024 1:24 PM EST [facility] 10-19-2024 Consult note Associated Order (s): IP CONSULT TO INFECTIOUS DISEASES Images from the original note were not included. [facility] - Infectious Diseases Attending Consult [...] and MRSA in 2018, RLE Morbidly obese ([facility]) Muscle weakness Osteomyelitis ([facility]) Osteomyelitis (H[facility]) 2019 RLE Other lack of coordination Other specified soft tissue disorders Other symbolic dysfunctions Schizophrenia ([facility]) Sleep apnea no CPAP Venous insufficiency Past Surgical History: Past Surgical History: Procedure Laterality Date ABCESS DRAINAGE Right 09/09/2018 FOOT; ACH COLONOSCOPY 09/19/[address] Hyde DILATION AND CURETTAGE OF UTERUS 05/18/2019 HYSTEROSCOPY 12/23/2021 LEG AMPUTATION THROUGH KNEE Right 06/16/2019 UPPER GASTROINTESTINAL ENDOSCOPY N/A 06/29/2023 Dr Sergio Sibley at [facility]; no specimens WISDOM TOOTH EXTRACTION Current Medications: Current Facility-Administered Medications Medication Dose Route Frequency Provider Last Rate Last Admin acetaminophen (Tylenol) tablet 650 mg 650 mg Oral q6h PRN Ezra Ackerman MD Or acetaminophen (Tylenol) suppository 650 mg 650 mg Rectal q6h PRN Ezra Ackerman MD amLODIPine (Norvasc) tablet 10 mg 10 mg Oral Daily Ezra Ackerman MD 10 mg at 10/19/24 0947 ARIPiprazole (Abilify) tablet 10 mg 10 mg Oral Daily Ezra Ackerman MD 10 mg at 10/19/24 0947 aspirin EC tablet 81 mg 81 mg Oral Daily Ezra Ackerman MD atorvastatin (Lipitor) tablet 10 mg 10 mg Oral Daily Ezra Ackerman MD 10 mg at 10/19/24 0947 bisacodyl (Dulcolax) EC tablet 5 mg 5 mg Oral BID PRN Ezra Ackerman MD carvedilol (Coreg) tablet 25 mg 25 mg Oral BID WC Ezra Ackerman MD 25 mg at 10/19/24 0947 dextrose 5 % infusion 100 mL/hr IntraVENous PRN Ezra Ackerman MD dextrose 50 % solution 12.5 g 12.5 g IntraVENous PRN Ezra Ackerman MD fentaNYL (Sublimaze) injection IntraVENous PRN Alfredito Baumann MD 50 mcg at 10/19/24 1350 ferrous sulfate tablet 325 mg 325 mg Oral Daily with breakfast Ezra Ackerman MD 325 mg at 10/19/24 0946 FLUoxetine (PROzac) capsule 40 mg 40 mg Oral Daily Ezra Ackerman MD 40 mg at 10/19/24 0946 gabapentin (Neurontin) capsule 100 mg 100 mg Oral BID Ezra Ackerman MD 100 mg at 10/19/24 0946 glucagon (human recombinant) injection 1 mg 1 mg IntraMUSCular PRN Ezra Ackerman MD glucose oral gel 15 g 15 g Oral PRN Ezra Ackerman MD hydrALAZINE (Apresoline) tablet 25 mg 25 mg Oral TID Ezra Ackerman MD 25 mg at 10/19/24 0947 HYDROmorphone (Dilaudid) injection 0.25 mg 0.25 mg IntraVENous q4h PRN Álvaro Thomas MD influenza vaccine tiss-cult subunt (Flucelvax) STANDARD-DOSE injection 0.5 mL 0.5 mL IntraMUSCular Prior to discharge Ezra Ackerman MD insulin glargine (Lantus) injection 45 Units 45 Units SubCUTAneous BID Ezra Ackerman MD Insulin Lispro (Humalog) injection 0-12 Units 0-12 Units SubCUTAneous 4x daily AC & HS Ezra Ackerman MD 8 Units at 10/19/24 1226 ipratropium-albuterol (Duo-Neb) 0.5-2.5 mg/3 mL nebulizer solution 3 mL 3 mL Nebulization 4x daily PRN Ezra Ackerman MD 3 mL at 10/18/24 2301 lactated Ringer's infusion 50 mL/hr IntraVENous Continuous Álvaro Thomas MD 50 mL/hr at 10/19/24 1222 50 mL/hr at 10/19/24 1222 lidocaine PF (Xylocaine) 2 % injection Infiltration PRN Alfredito Baumann MD 5 mL at 10/19/24 1350 magnesium hydroxide (Milk of Magnesia) 400 MG/5ML suspension 30 mL 30 mL Oral Nightly Ezra Ackerman MD Melatonin disintegrating tablet 10 mg 10 mg Oral Nightly PRN Ezra Ackerman MD 10 mg at 10/18/24 2223 [Held by provider] metoclopramide (Reglan) tablet 10 mg 10 mg Oral 4x daily AC & HS Ezra Ackerman MD 10 mg at 10/19/24 0631 midazolam (Versed) injection IntraVENous PRN Alfredito Baumann MD 1 mg at 10/19/24 1350 naloxone (Narcan) injection 0.4 mg 0.4 mg IntraVENous q5 min PRN Álvaro Thomas MD ondansetron ODT (Zofran-ODT) disintegrating tablet 4 mg 4 mg Oral q8h PRN Ezra Ackerman MD Or ondansetron (Zofran) injection 4 mg 4 mg IntraVENous q6h PRN Ezra Ackerman MD 4 mg at 10/19/24 0041 pantoprazole (ProtoNix) 40 mg in sodium chloride (PF) 0.9 % 10 mL injection 40 mg IntraVENous BID Ezra Ackerman MD 40 mg at 10/19/24 0631 piperacillin-tazobactam (Zosyn) 3,375 mg in sodium chloride 0.9 % 50 mL IVPB Mini-Bag Plus 3,375 mg IntraVENous q8h Ezra Ackerman MD Stopped at 10/19/24 1300 sodium chloride 0.9 % infusion 5-250 mL/hr IntraVENous PRN Ezra Ackerman MD sodium chloride 0.9% (NS) flush 10 mL 10 mL IntraVENous 2 times per day Ezra Ackerman MD 10 mL at 10/18/24 2227 sodium chloride 0.9% (NS) flush 10 mL 10 mL IntraVENous PRN Ezra Ackerman MD [Held by provider] torsemide (Demadex) tablet 10 mg 10 mg Oral Daily Ezra Ackerman MD 10 mg at 10/19/24 0946 [...] file Stress: No Stress Concern Present (10/19/2024) [employer] - Occupational Stress Questionnaire [...] "COVID19" in the last 72 hours. 10/19/2024 [id number] 1415 Culture, Aerobic Bacteria with Gram Stain [[id number]] Bile from Gallbladder In process Component Value No component results 10/19/2024 80456512/20/2023 1415 Aerobic and Anaerobic Culture with Stain [[id number]] Bile from Gallbladder In process Component Value No component results 10/19/2024 27246312/20/2023 1415 Anaerobic culture [[id number]] Bile from Gallbladder In process Component Value No component results 10/19/2024 75467312/20/2023 0207 Occult blood, stool [[id number]] (Abnormal) Stool from Per Rectum Final result Component Value Fecal occult blood Positive Abnormal 10/18/2024 08234712/20/2023 0022 Urine culture [[id number]] Urine, Clean Catch In process Component Value No component results Lines: PIV site looked ok Radiography/Echo/Other: US guided percutaneous peritoneal or retroperitoneal fluid collection drainage [[id number]] Resulted: 10/19/24 1334 Order Status: Sent Updated: 10/19/24 1405 US abdomen limited [[id number]] Collected: 10/18/242011 Order Status: Completed Updated: 10/18/242021 Narrative: [facility] 1965 [id number] Exam Date/Time: 10/18/2024 19:36 Procedure: US ABDOMEN [...] PM EST CT abdomen pelvis w contrast [[id number]] Collected: 10/18/24 190 Order Status: Completed Updated: 10/18/241913 Narrative: [facility] 1965 [id number] Exam Date/Time: 10/18/2024 17:21 Procedure: CT ABDOMEN [...] chest angiogram w and/or wo IV contrast [[id number]] Collected: 10/18/24 0757 Order Status: Completed Updated: 10/18/241912 Narrative: Patient Name: WILL JACINTO : 1965 [facility]#: [id number] Exam Date/Time: 10/18/2024 17:20 Procedure: CT CHEST [...] benefits, and consideration of use of antimicrobials. [facility] 10-19-2024 Plan of care note Problem: [...] integrity is maintained or improved Outcome: Progressing [facility] 10-19-2024 Consult note Associated Order (s): IP CONSULT TO GENERAL SURGERY Images from the original note were not included. Attending Attestation [facility] Medical [facility] - Surgery [facility] Physicians Surgery Patient Name: Will Jacinto Date: [...] answered. Lilo Rizo MD General Surgery Pager #[phone] 1:56 PM 10/19/2024 Department of General Surgery [...] denies fever/chills or nausea/vomiting. 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, RLE Morbidly obese ([facility]) Muscle weakness Osteomyelitis (HCC) Osteomyelitis (HCC) 2019 RLE Other lack of coordination Other specified soft tissue disorders Other symbolic dysfunctions Schizophrenia ([facility]) Sleep apnea no CPAP Venous insufficiency Past Surgical History: Past Surgical History: Procedure Laterality Date ABCESS DRAINAGE Right 09/09/2018 FOOT; ACH COLONOSCOPY 09/19/[address] Hyde DILATION AND CURETTAGE OF UTERUS 05/18/2019 HYSTEROSCOPY 12/23/2021 LEG AMPUTATION THROUGH KNEE Right 06/16/2019 UPPER GASTROINTESTINAL ENDOSCOPY N/A 06/29/2023 Dr Sergio Sibley at [facility]; no specimens WISDOM TOOTH EXTRACTION Current Medications: [...] file Stress: No Stress Concern Present (10/19/2024) [employer] - Occupational Stress Questionnaire [...] [facility] 1965 [id number] Exam Date/Time: 10/18/2024 19:36 Procedure: US ABDOMEN [...] EST Result History US abdomen limited (Order #[id number]) on 10/18/2024 - Order Result History Report [...] data. No Anne risk assessment data. No ELECTRICAL WIRER Request ID assessment data. No ELECTRICAL WIRER summons server ID assessment data. Breast Cancer Risk Navigation Events None Signed by Signed Time Phone Pager Joel Haddad MD 10/18/2024 20:21 Exam Information Status Exam Begun Exam Ended Final 10/18/2024 19:36 10/18/2024 20:00 External Results Report Open External Results Report Encounter View Encounter Study Details Open Study Details Order Transmittal Tracking US abdomen limited (Order #[id number]) on 10/18/24 Order Report US abdomen limited (Order #[id number]) on 10/18/24 CT abdomen pelvis w contrast Status: Final result Link to Procedure Log Procedure Log Orders Requiring a Screening Form Procedure Order Status Order ID Accession Number Form Status CT abdomen pelvis w contrast Completed [id number] Created PACS Images Show images for CT [...] History CT abdomen pelvis w contrast (Order #[id number]) on 10/18/2024 - Order Result History Report [...] data. No Anne risk assessment data. No ELECTRICAL WIRER Request ID assessment data. No ELECTRICAL WIRER summons server ID assessment data. Breast Cancer Risk [...] Tracking CT abdomen pelvis w contrast (Order #[id number]) on 10/18/[address] abdomen pelvis w contrast (Order #[id number]) on 10/18/24 CBC: Recent Labs 10/18/24 1640 [...] 7:30a-4:30p Wednesday-Wednesday After hours, please contact physician web consultant. [facility] 10-19-2024 Consult note Associated Order (s): Inpatient consult to Gastroenterology Images from the original note were not included. GI CONSULTATION Patient: Will Jacinto : 1965 Primary Care Physician: Jared Guzman Inpatient consult to Gastroenterology Consult performed by: Edwin Otto MD Consult ordered by: Ezra Ackerman MD REASON FOR CONSULTATION: Fecal occult [...] side (HCC) Anxiety disorder Bipolar 1 disorder ([facility]) Blood circulation, collateral Cellulitis chronic L lower leg COVID 12/08/2021 Depression Diabetes mellitus ([facility]) Type II, on insulin Disease of blood and blood forming organ Endometrial carcinoma ([facility]) 11/25/2020 Endometrial hyperplasia Foot ulcer ([facility]) Hx of blood clots RLE prior to amputation Hyperlipidemia Hypertension Lymphedema 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, RLE Morbidly obese ([facility]) Muscle weakness Osteomyelitis (HCC) Osteomyelitis (HCC) 2019 RLE Other lack of coordination Other specified soft tissue disorders Other symbolic dysfunctions Schizophrenia ([facility]) Sleep apnea no CPAP Venous insufficiency PAST SURGICAL HISTORY: Past Surgical History: Procedure Laterality Date ABCESS DRAINAGE Right 09/09/2018 FOOT; ACH COLONOSCOPY 09/19/[address] Hyde DILATION AND CURETTAGE OF UTERUS 05/18/2019 HYSTEROSCOPY 12/23/2021 LEG AMPUTATION THROUGH KNEE Right 06/16/2019 UPPER GASTROINTESTINAL ENDOSCOPY N/A 06/29/2023 Dr Sergio Sibley at [facility]; no specimens WISDOM TOOTH EXTRACTION FAMILY HISTORY: [...] 650 mg, 650 mg, Rectal, q6h PRN, Ezra Ackerman MD amLODIPine (Norvasc) tablet 10 mg, 10 mg, Oral, Daily, Ezra Ackerman MD ARIPiprazole (Abilify) tablet 10 mg, 10 mg, Oral, Daily, Ezra Ackerman MD aspirin EC tablet 81 mg, 81 mg, Oral, Daily, Ezra Ackerman MD atorvastatin (Lipitor) tablet 10 mg, 10 mg, Oral, Daily, Ezra Ackerman MD bisacodyl (Dulcolax) EC tablet 5 mg, 5 mg, Oral, BID PRN, Ezra Ackerman MD carvedilol (Coreg) tablet 25 mg, 25 mg, Oral, BID WC, Ezra Ackerman MD dextrose 5 % infusion, 100 mL/hr, IntraVENous, PRN, Ezra Ackerman MD dextrose 50 % solution 12.5 g, 12.5 g, IntraVENous, PRN, Ezra Ackerman MD ferrous sulfate tablet 325 mg, 325 mg, Oral, Daily with breakfast, Ezra Ackerman MD FLUoxetine (PROzac) capsule 40 mg, 40 mg, Oral, Daily, Ezra Ackerman MD gabapentin (Neurontin) capsule 100 mg, 100 mg, Oral, BID, Ezra Ackerman MD, 100 mg at 10/18/24 2223 glucagon (human recombinant) injection 1 mg, 1 mg, IntraMUSCular, PRN, Ezra Ackerman MD glucose oral gel 15 g, 15 g, Oral, PRN, Ezra Ackerman MD hydrALAZINE (Apresoline) tablet 25 mg, 25 mg, Oral, TID, Ezra Ackerman MD influenza vaccine tiss-cult subunt (Flucelvax) STANDARD-DOSE injection 0.5 mL, 0.5 mL, IntraMUSCular, Prior to discharge, Ezra Ackerman MD insulin glargine (Lantus) injection 45 Units, 45 Units, SubCUTAneous, BID, Ezra Ackerman MD Insulin Lispro (Humalog) injection 0-12 Units, 0-12 Units, SubCUTAneous, 4x daily AC & HS AND [DISCONTINUED] Insulin Lispro (Humalog) injection 0-12 Units, 0-12 Units, SubCUTAneous, Nightly, Ezra Ackerman MD ipratropium-albuterol (Duo-Neb) 0.5-2.5 mg/3 mL nebulizer solution 3 mL, 3 mL, Nebulization, 4x daily PRN, Ezra Ackerman MD, 3 mL at 10/18/24 230 magnesium hydroxide (Milk of Magnesia) 400 MG/5ML suspension 30 mL, 30 mL, Oral, Nightly, Ezra Ackerman MD Melatonin disintegrating tablet 10 mg, 10 mg, Oral, Nightly PRN, Ezra Ackerman MD, 10 mg at 10/18/24 2223 metoclopramide (Reglan) tablet 10 mg, 10 mg, Oral, 4x daily AC & HS, Ezra Ackerman MD, 10 mg at 10/19/24 0631 ondansetron ODT (Zofran-ODT) disintegrating tablet 4 mg, 4 mg, Oral, q8h PRN OR ondansetron (Zofran) injection 4 mg, 4 mg, IntraVENous, q6h PRN, Ezra Ackerman MD, 4 mg at 10/19/24 0041 pantoprazole (ProtoNix) 40 mg in sodium chloride (PF) 0.9 % 10 mL injection, 40 mg, IntraVENous, BID, Ezra Ackerman MD, 40 mg at 10/19/24 0631 piperacillin-tazobactam (Zosyn) 3,375 mg in sodium chloride 0.9 % 50 mL IVPB Mini-Bag Plus, 3,375 mg, IntraVENous, q8h, Ezra Ackerman MD sodium chloride 0.9 % infusion, 5-250 mL/hr, IntraVENous, PRN, Ezra Ackerman MD sodium chloride 0.9% (NS) flush 10 mL, 10 mL, IntraVENous, 2 times per day, Ezra Ackerman MD, 10 mL at 10/18/24 2227 sodium chloride 0.9% (NS) flush 10 mL, 10 mL, IntraVENous, PRN, Ezra Ackerman MD torsemide (Demadex) tablet 10 mg, 10 mg, Oral, Daily, Ezra Ackerman MD ALLERGIES: No Known Allergies REVIEW [...] POCT glucose meter Performed by: Nati Vigil [facility], [address] [address] CLIA ID: [id number] @[email or web address]@ @[email or web address]@ abdomen limited Final Result 1. Cholestasis, cholelithiasis, [...] to contact the dictating provider for clarification.) [employer] Phone: 10-18-2024 History and physical note Attending [...] side (HCC) Anxiety disorder Bipolar 1 disorder ([facility]) Blood circulation, collateral Cellulitis chronic L lower leg COVID 12/08/2021 Depression Diabetes mellitus ([facility]) Type II, on insulin Disease of blood and blood forming organ Endometrial carcinoma ([facility]) 11/25/2020 Endometrial hyperplasia Foot ulcer ([facility]) Hx of blood clots RLE prior to amputation Hyperlipidemia Hypertension Lymphedema 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, RLE Morbidly obese ([facility]) Muscle weakness Osteomyelitis (HCC) Osteomyelitis (HCC) 2019 RLE Other lack of coordination Other specified soft tissue disorders Other symbolic dysfunctions Schizophrenia ([facility]) Sleep apnea no CPAP Venous insufficiency Past Surgical History: Past Surgical History: Procedure Laterality Date ABCESS DRAINAGE Right 09/09/2018 FOOT; ACH COLONOSCOPY 09/19/[address] Hyde DILATION AND CURETTAGE OF UTERUS 05/18/2019 HYSTEROSCOPY 12/23/2021 LEG AMPUTATION THROUGH KNEE Right 06/16/2019 UPPER GASTROINTESTINAL ENDOSCOPY N/A 06/29/2023 Dr Sergio Sibley at [facility]; no specimens WISDOM TOOTH EXTRACTION Social History: [...] - Date - 10/20/24 - Location - [facility] (Non-Skilled) - Pending the following [...] Mobile Relation: Other [employer] Will Gilliam Ophelia : 1965 Primary Care Physician: Jared Guzman The patient and/or family/surrogate voluntarily agreed to participate in ACP services. Patient s cognitive capacity: AOx3 Code Status: [x_] [FULL CODE - Continue all advanced life support: CPR,intubation,invasive procedures] [_] [DNR-CCA - DO NOT do CPR, intubation] [_] [DNR-CAR DRIVER - Comfort care only] [_] DNR form [...] of life care, with patient and/or family/surrogate. Ezra Ackerman MD Division of Hospitalist Medicine [employer] Work Phone: 10-18-2024 Note [employer] [facility] 10-18-2024 History and physical [...] side (HCC) Anxiety disorder Bipolar 1 disorder ([facility]) Blood circulation, collateral Cellulitis chronic L lower leg COVID 12/08/2021 Depression Diabetes mellitus (HCC) Type II, on insulin Disease of blood and blood forming organ Endometrial carcinoma ([facility]) 11/25/2020 Endometrial hyperplasia Foot ulcer ([facility]) Hx of blood clots RLE prior to amputation Hyperlipidemia Hypertension Lymphedema 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; no specimens WISDOM TOOTH EXTRACTION Social History: [...] - Date - 10/20/24 - Location [facility] (Non-Skilled) - Pending the following [...] Quesada (POA) Relation: Niece Secondary Emergency Contact: TristianCarola Mobile Relation: Other [employer] Will Gilliam McNarendralidia : 1965 Primary Care Physician: Jared Guzman The patient and/or family/surrogate voluntarily agreed to participate in ACP services. Patient s cognitive capacity: AOx3 Code Status: [x_] [FULL CODE - Continue all advanced life support: CPR,intubation,invasive procedures] [_] [DNR-CCA - DO NOT do CPR, intubation] [_] [DNR-CAR DRIVER - Comfort care only] [_] DNR form [...] of life care, with patient and/or family/surrogate. Ezra Ackerman MD Division of Hospitalist Medicine [facility] documented in this encounter [facility] 10-18-2024 Emergency department Note EKG at bedside [facility] 10-18-2024 Emergency department Note EKG at bedside EKG called EMERGENCY DEPARTMENT ENCOUNTER Pt Name: Maria Luisa Jacinto Birthdate 1965 Date of evaluation: 10/18/2024 ED Provider: Dontrell Woodall DO CHIEF COMPLAINT Chief Complaint Patient presents with Abdominal Pain Pt presents to er from [facility]. 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, RLE Morbidly obese ([facility]) Muscle weakness Osteomyelitis ([facility]) Osteomyelitis ([facility]) 2019 RLE Other lack of coordination Other specified soft tissue disorders Other symbolic dysfunctions Schizophrenia ([facility]) Sleep apnea no CPAP Venous insufficiency SURGICAL HISTORY Past Surgical History: Procedure Laterality Date ABCESS DRAINAGE Right 09/09/2018 FOOT; ACH COLONOSCOPY 09/19/[address] Hyde DILATION AND CURETTAGE OF UTERUS 05/18/2019 HYSTEROSCOPY 12/23/2021 LEG AMPUTATION THROUGH KNEE Right 06/16/2019 UPPER GASTROINTESTINAL ENDOSCOPY N/A 06/29/2023 Dr Sergio Sibley at [facility]; no specimens WISDOM TOOTH EXTRACTION CURRENT MEDICATIONS [...] Culture. Procedure Abnormality Status --------- ------ Complete Urinalysis[[id number]] Please view results for these tests on the individual orders. COMPLETE URINALYSIS LACTIC ACID WITH REFLEX All other labs were within normal range or not returned as of this dictation. EMERGENCY DEPARTMENT COURSE and DIFFERENTIAL DIAGNOSIS/MDM: Vitals: Vitals: 10/18/24 1633 12/10/01 185210/18/241922 BP: (!) 152/67 134/63 131/62 BP Location: [...] injection 4 mg (4 mg IntraVENous Given 10/18/241644) sodium chloride 0.9 % bolus 500 mL (0 mL IntraVENous Stopped 10/18/241740) ondansetron (Zofran) injection 4 mg (4 mg IntraVENous Given 10/18/241644) iopamidol (Isovue-370) 76 % injection 100 mL [...] DO 10/18/241935 Pt presents to er from [facility]. Pt presents with abd pain, diarrhea, chest pain. Pt presents aox4 speaking in full and complete sentences. documented in this encounter [facility] 10-18-2024 Emergency department Note EKG called [facility] 10-18-2024 Emergency department Triage note Pt presents to er from [facility]. Pt presents with abd pain, diarrhea, chest pain. Pt presents aox4 speaking in full and complete sentences. [facility] 10-18-2024 Physician Emergency department Note EMERGENCY DEPARTMENT ENCOUNTER Pt Name: Maria Luisa Jacinto Birthdate 1965 Date of evaluation: 10/18/2024 ED Provider: Dontrell Woodall DO CHIEF COMPLAINT Chief Complaint Patient presents with Abdominal Pain Pt presents to er from [facility]. 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, RLE Morbidly obese ([facility]) Muscle weakness Osteomyelitis (HCC) Osteomyelitis (HCC) 2019 RLE Other lack of coordination Other specified soft tissue disorders Other symbolic dysfunctions Schizophrenia ([facility]) Sleep apnea no CPAP Venous insufficiency SURGICAL HISTORY Past Surgical History: Procedure Laterality Date ABCESS DRAINAGE Right 09/09/2018 FOOT; ACH COLONOSCOPY 09/19/[address] Hyde DILATION AND CURETTAGE OF UTERUS 05/18/2019 HYSTEROSCOPY 12/23/2021 LEG AMPUTATION THROUGH KNEE Right 06/16/2019 UPPER GASTROINTESTINAL ENDOSCOPY N/A 06/29/2023 Dr Sergio Sibley at [facility]; no specimens WISDOM TOOTH EXTRACTION CURRENT MEDICATIONS [...] Culture. Procedure Abnormality Status --------- ------ Complete Urinalysis[[id number]] Please view results for these tests on [...] gen surgery [FG] [address] Meka lopez admit [FG] ED Course User Index [...] Emergency Medicine Provider Dontrell Woodall DO 10/18/241935 [employer] 09-20-2024 Telephone encounter Note Faxed recommendation to [facility]. Thank you! [employer] 09-20-2024 Miscellaneous Notes Faxed recommendation to [facility]. Thank you! Very high doses with variability and history severe hypoglycemia- would not change doses for now Images from the original note were not included. Patient's BGL documented in this encounter [facility] [employer] 09-19-2024 Telephone encounter Note Very high doses with variability and history severe hypoglycemia- would not change doses for now [facility] [employer] Work Phone: 09-19-2024 Telephone encounter Note Images from the original note were not included. Patient's BGL [facility] 09-13-2024 Telephone encounter Note Faxed info. To [facility]. [phone] [facility] 09-13-2024 Miscellaneous Notes Faxed info. To [facility]. [phone] Keep doses the same for now thank you Images from the original note were not included. Patient's BGL documented in this encounter [facility] 09-11-2024 Telephone encounter Note Keep doses the same for now thank you [facility] [employer] Work Phone: 09-11-2024 Miscellaneous Notes Keep doses the same for now thank you Images from the original note were not included. Patient's BGL documented in this encounter [facility] 09-11-2024 Telephone encounter Note Images from the original note were not included. Patient's BGL [facility] 08-09-2024 Miscellaneous Notes There's a more recent BGL that you also advised no changes. I faxed over recommendation to [facility]. Thank you! Please keep doses the same thank you Images from the original note were not included. Patient's BGL documented in this encounter [facility] 08-09-2024 Telephone encounter Note There's a more recent BGL that you also advised no changes. I faxed over recommendation to [facility]. Thank you! [facility] 08-09-2024 Telephone encounter Note Faxed recommendation to [facility]. Thank you! [facility] [employer] 08-09-2024 Miscellaneous Notes Faxed recommendation to [facility]. Thank you! Somewhat improved; would not make any changes at this point thank you Images from the original note were not included. Patient's BGL documented in this encounter [facility] [employer] 08-08-2024 Telephone encounter Note Somewhat improved; would not make any changes at this point thank you [facility] [employer] Phone: 08-08-2024 Miscellaneous Notes Somewhat improved; would not make any changes at this point thank you Images from the original note were not included. Patient's BGL documented in this encounter [facility] [employer] 08-08-2024 Telephone encounter Note Images from the original note were not included. Patient's BGL [facility] [employer] 08-04-2024 Telephone encounter Note Please keep doses the same thank you [facility] Work Phone: 08-04-2024 Miscellaneous Notes Please keep doses the same thank you Images from the original note were not included. Patient's BGL documented in this encounter [facility] 08-03-2024 Telephone encounter Note Images from the original note were not included. Patient's BGL [facility] 07-18-2024 Note Addended by: RADHA BUSBY on: 07/18/2024 02:17 PM Modules accepted: Orders [facility] 07-18-2024 Note Addended by: RADHA BUSBY on: 07/18/2024 02:17 PM Modules accepted: Orders [facility] 07-18-2024 Note Addended by: RADHA BUSBY on: 07/18/2024 02:17 PM Modules accepted: Orders [facility] 07-18-2024 Note Addended by: RADHA BUSBY on: 07/18/2024 02:17 PM Modules accepted: Orders [facility] 07-18-2024 [facility]phone encounter [facility]. I relayed the message below and she verbalized understanding. [facility] 07-18-2024 Miscellaneous Notes Addended by: RADHA BUSBY on: 07/18/2024 02:17 PM Modules accepted: Orders Called [facility] and spoke with nurse. I relayed the message below and she verbalized understanding. Increase lantus to 45 twice daily thank you Patient is currently taking Humulin R U500(130 units TID) and lantus(30 units BID). Please confirm current u500 doses thank you Images from the original note were not included. Patient's BGL documented in this encounter [facility] [employer] 07-18-2024 Telephone encounter Note Increase lantus to 45 twice daily thank you [facility] [employer] Work Phone: 07-18-2024 Telephone encounter Note Patient is currently taking Humulin R U500(130 units TID) and lantus(30 units BID). [facility] [employer] 07-17-2024 Telephone encounter Note Please confirm current u500 doses thank you [facility] [employer] 07-17-2024 Telephone encounter Note Images from the original note were not included. Patient's BGL [facility] [employer] 05-02-2024 Telephone encounter Note Faxed recommendation to [facility]([phone]) Thank you! [facility] [employer] 05-02-2024 Miscellaneous Notes Faxed recommendation to [facility]([phone]) Thank you! A lot of fluctuation and patient is prone to severe hypoglycemia so would not change dose thank you BS Log for 04/25/24 - 05/01/24 scanned into media for review. Please advise. Thank you. documented in this encounter [facility] [employer] 05-02-2024 Telephone encounter Note A lot of fluctuation and patient is prone to severe hypoglycemia so would not change dose thank you [employer] Phone: 05-02-2024 Telephone encounter Note BS Log for 04/25/24 - 05/01/24 scanned into media for review. Please advise. Thank you. [facility] 02-24-2024 Telephone encounter Note Please ask to increase u500 insulin with meals to 85 units with meals thank you [employer] Phone: 02-24-2024 Miscellaneous Notes Please ask to increase u500 insulin with meals to 85 units with meals thank you Nabil returned call. Nabil Message released to patient as written. Radha Busby MA Director Organizational Signed 2:13 PM [facility] current DM insulin regimen. [...] to the patient from encounter: N/A [facility] confirm current DM insulin regimen. Nurse [...] included. Patient's BGL documented in this encounter [facility] 02-23-2024 Telephone encounter Note Nabil returned call. Nabil Message released to patient as written. Radha Busby MA Director Organizational Signed 2:13 PM Called [facility] to confirm current DM insulin regimen. [...] relayed to the patient from encounter: N/A [facility] [facility] 02-23-2024 Miscellaneous Notes Nabil returned call. Nabil Message released to patient as written. Radha Busby MA Director Organizational Signed 2:13 PM Called [facility] to confirm current DM insulin regimen. [...] to the patient from encounter: N/A Called [facility] to confirm current DM insulin regimen. [...] included. Patient's BGL documented in this encounter [facility] 02-23-2024 Telephone encounter Note Called [facility] to confirm current DM insulin regimen. Nurse was unavailable and will call back. We have on file that patient is taking lantus 30 units two times daily and humulin R U500 70 units with meals. CAC can release message to confirm the doses. Please also inform them for future blood sugar logs to also send current med. List. Thank you! Trulia 02-22-2024 Telephone encounter Note Please see if we can get a the patient's current dm meds with the next fax so we can adjust. Thank you [facility] Work Phone: 02-22-2024 Miscellaneous Notes Please see if we can get a the patient's current dm meds with the next fax so we can adjust. Thank you Images from the original note were not included. Patient's BGL documented in this encounter [facility] 02-22-2024 Telephone encounter Note Images from the original note were not included. 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 documented in this encounter [facility] 02-11-2024 Instructions Urszula Herring MA - 02/11/2024 10:10 AM EDT YOUR APPOINTMENT TODAY WAS WITH [facility] LUNG NODULE [facility], COPD CLINIC, PULMONARY AND SLEEP MEDICINE OFFICE. PLEASE CALL OUR OFFICE AT [phone] IF YOU HAVE NOT RECEIVED YOUR TEST [...] to make improvements. COVID-19 VACCINATION INFORMATION: PH. [phone] [email or web address] [facility] Central Scheduling [phone] [facility] Sleep Scheduling [phone] documented in this encounter [facility] 01-28-2024 Emergency department Note Report called to Lindsay Frias RN. Sonya Hill RN 01/28/2412 [facility] 01-28-2024 Emergency department Note Report called to [...] Nolan RN 01/27/241923 documented in this encounter [facility] 01-27-2024 Emergency department Note Report to PASTORA Almendarez. Maylin Nolan RN 01/27/242020 [facility] 01-27-2024 Emergency department Note DM transport arranged. ETA 3-4 hours. Maylin Nolan RN 01/27/242018 [facility] 01-27-2024 Hospital Discharg e instructions Noe Low II, MD - 01/27/2024 8:18 PM [...] 200 units once daily. 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 documented in this encounter [facility] 01-27-2024 Emergency department Note Patient quickly ate his sack lunch and two diet cokes. Shortly after patient complains of stomach pain. Provider notified. Maylin Nolan RN 01/27/242005 [facility] 01-27-2024 Emergency department Note Sack lunch provided. Maylin Nolan RN 01/27/241923 [facility] 01-26-2024 Emergency department Note Patient provided sack lunch per his request. Denise Terry RN 01/26/242229 [facility] 01-26-2024 Emergency department Note Patient provided sack lunch per his request. Denise Terry RN 01/26/242229 I did not see or evaluate this patient in the ED. Mark Couch PA-C 01/26/242127 EMERGENCY DEPARTMENT ENCOUNTER Pt Name: Will Jacinto Birthdate 1965 Date of evaluation: 01/26/2024 ED Provider: Art Zeng DO CHIEF COMPLAINT Chief Complaint Patient presents with Hypoglycemia Patient reports from [facility] for low blood sugar. Facility states [...] hypoglycemia. Blood sugar was 48 at his intermediate, he says they gave him some pudding, [...] Acquired absence of other toe(s), unspecified side ([facility]) Anxiety disorder Bipolar 1 disorder ([facility]) Blood circulation, collateral Cellulitis chronic L lower leg COVID 12/08/2021 Depression Diabetes mellitus ([facility]) Type II, on insulin Disease of blood and blood forming organ Endometrial carcinoma (HCC) 11/25/2020 Endometrial hyperplasia Foot ulcer ([facility]) Hx of blood clots RLE prior to amputation Hyperlipidemia Hypertension Lymphedema 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, RLE Morbidly obese ([facility]) Muscle weakness Osteomyelitis (HCC) Osteomyelitis (HCC) 2019 RLE Other lack of coordination Other specified soft tissue disorders Other symbolic dysfunctions Schizophrenia ([facility]) Sleep apnea no CPAP Venous insufficiency SURGICAL HISTORY Past Surgical History: Procedure Laterality Date ABCESS DRAINAGE Right 09/09/2018 FOOT; [facility] COLONOSCOPY 09/19/[address] Hyde DILATION AND CURETTAGE OF UTERUS 05/18/2019 HYSTEROSCOPY 12/23/2021 LEG AMPUTATION THROUGH KNEE Right 06/16/2019 UPPER GASTROINTESTINAL ENDOSCOPY N/A 06/29/2023 Dr Sergio Sibley at [facility]; no specimens WISDOM TOOTH EXTRACTION CURRENT MEDICATIONS [...] 102 (*) Narrative: Performed by: [facility], [address] [place] [address] CLIA ID: [id number] POCT GLUCOSE METER UNSOLICITED RESULTS - Abnormal Glucose 111 (*) Narrative: Performed by: [facility], [address] [place] [address] CLIA ID: [id number] POCT GLUCOSE METER UNSOLICITED RESULTS - Abnormal Glucose 101 (*) Narrative: Performed by: [facility], [address] [place] [id number] CLIA ID: [id number] All other labs were within normal range [...] 1. Hypoglycemia PATIENT REFERRED TO: Jared Guzman [address] [facility] [address] Schedule an appointment as soon [...] Zeng DO 01/26/242215 documented in this encounter [facility] 01-26-2024 Hospital Discharg e instructions Art Zeng DO - 01/26/2024 10:15 PM EDT Call your doctor in the morning to schedule follow up. Eat regular meals and snacks. Return to the ED for recurrent symptoms or if any other problems arise. The following attachments cannot be sent through Care Everywhere.Low Blood Sugar Discharge Instructions, Adult (Nauruan)documented in this encounter [facility] 01-26-2024 Physician Emergency department Note I did not see or evaluate this patient in the ED. Mark Couch PA-C 01/26/242127 [facility] [employer] Work Phone: 01-26-2024 Physician Emergency department Note EMERGENCY DEPARTMENT ENCOUNTER Pt Name: Will Jacinto Birthdate 1965 Date of evaluation: 01/26/2024 ED Provider: Art Zeng DO CHIEF COMPLAINT Chief Complaint Patient presents with Hypoglycemia Patient reports from [facility] for low blood sugar. Facility states that it was 48. Patient was fed and EMS sugar was 76. On arrival to room BGM was 102. HISTORY OF PRESENT ILLNESS (Location/Symptom, Timing/Onset, Context/Setting, Quality, Duration, Modifying Factors, Severity) Note limiting factors. HPI Will Jacinto is a 58 y.o. adult who presents to the emergency department due to hypoglycemia. 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, RLE Morbidly obese ([facility]) Muscle weakness Osteomyelitis (HCC) Osteomyelitis ([facility]) 2019 RLE Other lack of coordination Other specified soft tissue disorders Other symbolic dysfunctions Schizophrenia ([facility]) Sleep apnea no CPAP Venous insufficiency SURGICAL HISTORY Past Surgical History: Procedure Laterality Date ABCESS DRAINAGE Right 09/09/2018 FOOT; [facility] COLONOSCOPY 09/19/[address] Hyde DILATION AND CURETTAGE OF UTERUS 05/18/2019 HYSTEROSCOPY 12/23/2021 LEG AMPUTATION THROUGH KNEE Right 06/16/2019 UPPER GASTROINTESTINAL ENDOSCOPY N/A 06/29/2023 Dr Sergio Sibley at [facility]; no specimens WISDOM TOOTH EXTRACTION CURRENT MEDICATIONS [...] 102 (*) Narrative: Performed by: [facility], [address] [place] [id number] CLIA ID: [id number] POCT GLUCOSE METER UNSOLICITED RESULTS - Abnormal Glucose 111 (*) Narrative: Performed by: [facility], [address] [place] [address] CLIA ID: [id number] POCT GLUCOSE METER UNSOLICITED RESULTS - Abnormal Glucose 101 (*) Narrative: Performed by: [facility], [address] [place] [id number] CLIA ID: [id number] All other labs were within normal range [...] Hypoglycemia PATIENT REFERRED TO: Jared Guzman [address] [facility] [phone] Schedule an appointment as soon as possible [...] signed) Emergency Medicine Provider Art Zeng DO 01/26/246 [facility] 01-24-2024 Telephone encounter Note Pt again appeared on ED Nuance for CT AP 01/22/24; noting stable 8mm nodule; unchanged from 08/2023 report. Pt to keep appt for fu with Herber Richard 02/11/24. Navigators to follow. [facility] 01-24-2024 Miscellaneous Notes Pt again appeared on ED N[facility] for CT AP 01/22/24; noting stable 8mm nodule; unchanged from 08/2023 report. Pt to keep appt for fu with Herber Richard 02/11/24. Navigators to follow. Defer CT chest (imaging has been cancelled) Keep appt schedule 02/11/24 to review next steps. Pt appeared on ED nuance search for lung nodules after CT AP 12/31/23 revealed the following: LOWER CHEST: An 8 mm nodule is present within the right middle lobe. This is unchanged since 08/08/2023. Referral: known to [facility]; Herber Ramos [facility] imaging n/a Pt is documented as never smoker Additional Risk Factors: na Planning CT low dose fu 01/06/24 will send to provider to confirm plan for fu. Pt has scheduled appt with Herber Ramos 02/11/24. documented in this encounter [facility] 01-22-2024 Emergency department Note EMERGENCY DEPARTMENT ENCOUNTER [...] Acquired absence of other toe(s), unspecified side ([facility]) Anxiety disorder Bipolar 1 disorder ([facility]) Blood circulation, collateral Cellulitis chronic L lower leg COVID 12/08/2021 Depression Diabetes mellitus ([facility]) Type II, on insulin Disease of blood and blood forming organ Endometrial carcinoma ([facility]) 11/25/2020 Endometrial hyperplasia Foot ulcer ([facility]) Hx of blood clots RLE prior to amputation Hyperlipidemia Hypertension Lymphedema 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, RLE Morbidly obese ([facility]) Muscle weakness Osteomyelitis ([facility]) Osteomyelitis ([facility]) 2019 RLE Other lack of coordination Other specified soft tissue disorders Other symbolic dysfunctions Schizophrenia ([facility]) Sleep apnea no CPAP Venous insufficiency SURGICAL HISTORY Past Surgical History: Procedure Laterality Date ABCESS DRAINAGE Right 09/09/2018 FOOT; [facility] COLONOSCOPY 09/19/[address] Hyde DILATION AND CURETTAGE OF UTERUS 05/18/2019 HYSTEROSCOPY 12/23/2021 LEG AMPUTATION THROUGH KNEE Right 06/16/2019 UPPER GASTROINTESTINAL ENDOSCOPY N/A 06/29/2023 Dr Sergio Sibley at [facility]; no specimens WISDOM TOOTH EXTRACTION CURRENT MEDICATIONS [...] months Report Dictated on Electronically Signed By: Matthew Morgan MD Electronically Signed Date/Time: 01/22/2024 4:54 [...] Culture. Procedure Abnormality Status --------- ------ Complete Urinalysis[[id number]] Abnormal Final result Please view results for [...] injection 75 mL (75 mL IntraVENous Given 01/22/243) cefTRIAXone (Rocephin) 1,000 mg in sodium chloride [...] 05:54:09 AM PATIENT REFERRED TO: Jared Guzman [address] [facility] [phone] Schedule an appointment as soon [...] 01/22/24 0633 Pt presents to er from [facility] for abd pain. documented in this encounter [facility] 01-22-2024 Emergency department Triage note Pt presents to er from [facility] for abd pain. 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, RLE Morbidly obese (HCC) Muscle weakness Osteomyelitis (HCC) Osteomyelitis (HCC) 2019 RLE Other lack of coordination Other specified soft tissue disorders Other symbolic dysfunctions Schizophrenia ([facility]) Sleep apnea no CPAP Venous insufficiency SURGICAL HISTORY Past Surgical History: Procedure Laterality Date ABCESS DRAINAGE Right 09/09/2018 FOOT; [facility] COLONOSCOPY 09/19/[address] Hyde DILATION AND CURETTAGE OF UTERUS 05/18/2019 HYSTEROSCOPY 12/23/2021 LEG AMPUTATION THROUGH KNEE Right 06/16/2019 UPPER GASTROINTESTINAL ENDOSCOPY N/A 06/29/2023 Dr Sergio Sibley at [facility]; no specimens WISDOM TOOTH EXTRACTION CURRENT MEDICATIONS [...] months Report Dictated on Electronically Signed By: Matthew Morgan MD Electronically Signed Date/Time: 01/22/2024 4:54 [...] Culture. Procedure Abnormality Status --------- ------ Complete Urinalysis[[id number]] Abnormal Final result Please view results for [...] AM PATIENT REFERRED TO: Jared Guzman [address] [facility] [phone] Schedule an appointment as soon [...] signed) Emergency Medicine Provider Jaquan Morris DO 01/22/24632 [facility] 01-21-2024 Telephone encounter Note Called SNF and spoke to Marques who will leave a message for Suri. Notified them the the pts care can be moved to the [place] office, and to just let the office know after her upcoming appt. [facility] 01-21-2024 Miscellaneous Notes Called SNF and spoke to Marques who will leave a message for Suri. Notified them the the pts care can be moved to the [place] office, and to just let the office know after her upcoming appt. Called SNF and spoke to Quiana who stated that the person that I need to talk to has left for the day and requested that I called tomorrow. Name of caller: Suri Contact phone number: [phone] Relationship to Patient: [facility] Provider: MD Jesus Practice: [facility] Chief Complaint/Reason for Call: Suri called in to see if Pt's F/U appt could be moved to the [place] location. Scheduling is into Jul. CAC did advise Suri and she stated she will keep the scheduled appt at [facility] location, but would like to know if Pt can be scheduled at the [place] location for his next f/u appt. Please advise Best time of day caller can be reached: Any Patient advised that office/PCP has 24-48 business hours to return their call: N/A documented in this encounter [facility] 01-20-2024 Telephone encounter Note Called SNF and spoke to Quiana who stated that the person that I need to talk to has left for the day and requested that I called tomorrow. [facility] 01-20-2024 Telephone encounter Note Name of caller: Suri Contact phone number: [phone] Relationship to Patient: [facility] Provider: MD Jesus Practice: [facility] Chief Complaint/Reason for Call: Suri called in to see if Pt's F/U appt could be moved to the [place] location. Scheduling is into Jul. [facility] did advise Suri and she stated she will keep the scheduled appt at [facility] location, but would like to know if Pt can be scheduled at the [facility] for his next f/u appt. Please advise Best time of day caller can be reached: Any Patient advised that office/PCP has 24-48 business hours to return their call: N/A [facility] 01-20-2024 Telephone encounter Note Faxed recommendation to [facility]([phone]). [facility] 01-20-2024 Miscellaneous Notes Faxed recommendation to [facility]([phone]). Please keep doses the same thank you Images from the original note were not included. Patient's BGL documented in this encounter [facility] 01-19-2024 Telephone encounter Note Please keep doses the same thank you [facility] [employer] Work Phone: 01-19-2024 Telephone encounter Note Images from the original note were not included. Patient's BGL [facility] [employer] 01-04-2024 Telephone encounter Note Defer CT chest (imaging has been cancelled) Keep appt schedule 02/11/24 to review next steps. [facility] 01-04-[address]er [address] chest (imaging has been cancelled) Keep appt schedule 02/11/24 to review next steps. Pt appeared on ED nuance search for lung nodules after CT AP 12/31/23 revealed the following: LOWER CHEST: An 8 mm nodule is present within the right middle lobe. This is unchanged since 08/08/2023. Referral: known to [facility]; Herber CASTELLANOS imaging n/a Pt is documented as never smoker Additional Risk Factors: na Planning CT low dose fu 01/06/24 will send to provider to confirm plan for fu. Pt has scheduled appt with Herber Ramos 02/11/24. documented in this encounter [facility] 01-03-2024 Telephone encounter Note Pt appeared on ED nuance search for lung nodules after CT AP 12/31/23 revealed the following: LOWER CHEST: An 8 mm nodule is present within the right middle lobe. This is unchanged since 08/08/2023. Referral: known to [facility]; Herber Ramos [facility] imaging n/a Pt is documented as never smoker Additional Risk Factors: na Planning CT low dose fu 01/06/24 will send to provider to confirm plan for fu. Pt has scheduled appt with Herber Ramos 02/11/24. [facility] 12-29-2023 Emergency department Note Hans Larkin here for transfer back to facility. Sera Noguera RN 12/29/23 1009 [facility] 12-29-2023 Emergency department Note aHns Larkin here for transfer back to facility. Sera Noguera RN 12/29/23 1009 Report from offload medic, pt assisted using using bedpan at this time. 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 Todd Damon 12/29/23 0143 EMERGENCY DEPARTMENT ENCOUNTER Pt Name: Maria Luisa Jacinto Birthdate 1965 Date of evaluation: 12/28/2023 ED Provider: Ramsey Zavaleta DO CHIEF COMPLAINT Chief Complaint Patient presents with Nausea Vomiting Pt [facility] for 1 month. Upon [...] this timeframe. 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, RLE Morbidly obese ([facility]) Muscle weakness Osteomyelitis (HCC) Osteomyelitis (HCC) 2019 RLE Other lack of coordination Other specified soft tissue disorders Other symbolic dysfunctions Schizophrenia ([facility]) Sleep apnea no CPAP Venous insufficiency SURGICAL HISTORY Past Surgical History: Procedure Laterality Date ABCESS DRAINAGE Right 09/09/2018 FOOT; [facility] COLONOSCOPY 09/19/[address] Hyde DILATION AND CURETTAGE OF UTERUS 05/18/2019 HYSTEROSCOPY 12/23/2021 LEG AMPUTATION THROUGH KNEE Right 06/16/2019 UPPER GASTROINTESTINAL ENDOSCOPY N/A 06/29/2023 Dr Sergio Sibley at [facility]; no specimens WISDOM TOOTH EXTRACTION CURRENT MEDICATIONS [...] Culture. Procedure Abnormality Status --------- ------ Complete Urinalysis[[id number]] Please view results for these tests on [...] contact the dictating provider for clarification.) Ramsey Zavaleta, DO (electronically signed) Emergency Medicine Provider Ramsey Zavaleta DO Resident 12/29/23 0413 Ramsey Zavaleta DO Resident 12/29/23 0416 documented in this encounter [facility] 12-29-2023 Emergency department Note Report from offload medic, pt assisted using using bedpan at this time. 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 Follow-up with your PCP for reassessment. documented in this encounter [facility] 12-29-2023 Emergency department Note Pt passed PO challenge w/o difficulty. Todd Damon 12/29/23 0143 [facility] 12-28-2023 Miscellaneous Notes Emergency Department Encounter [facility] [...] for clarification.) Edwin Bustos MD Acute Care [facility] Edwin Bustos MD 12/29/23 0614 documented in this encounter [facility] 12-28-2023 Note Formatting of this n ote is different from the original. Emergency Department Encounter [facility] EMERGENCY DEPT Patient: Will Jacinto : 1965 [...] [employer] Edwin Bustos MD 12/29/23 0614 [employer] Phone: 12-28-2023 Note Formatting of this n ote is different from the original. Emergency Department Encounter [facility] EMERGENCY DEPT Patient: Will Jacinto : 1965 [...] for clarification.) Edwin Bustos MD Acute Care [facility] Edwin Bustos MD 12/29/23 0614 [employer] Phone: 12-28-2023 Physician Emergency department Note EMERGENCY DEPARTMENT ENCOUNTER Pt Name: Maria Luisa Jacinto Birthdate 1965 Date of evaluation: 12/28/2023 ED Provider: Ramsey Zavaleta DO CHIEF COMPLAINT Chief Complaint Patient presents with Nausea Vomiting Pt arrived [facility] EMS [facility] due to N/V for 1 month. Upon [...] this timeframe. 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, RLE Morbidly obese ([facility]) Muscle weakness Osteomyelitis (HCC) Osteomyelitis ([facility]) 2019 RLE Other lack of coordination Other specified soft tissue disorders Other symbolic dysfunctions Schizophrenia ([facility]) Sleep apnea no CPAP Venous insufficiency SURGICAL HISTORY Past Surgical History: Procedure Laterality Date ABCESS DRAINAGE Right 09/09/2018 FOOT; ACH COLONOSCOPY 09/19/[address] Hyde DILATION AND CURETTAGE OF UTERUS 05/18/2019 HYSTEROSCOPY 12/23/2021 LEG AMPUTATION THROUGH KNEE Right 06/16/2019 UPPER GASTROINTESTINAL ENDOSCOPY N/A 06/29/2023 Dr Sergio Sibley at [facility]; no specimens WISDOM TOOTH EXTRACTION CURRENT MEDICATIONS [...] Culture. Procedure Abnormality Status --------- ------ Complete Urinalysis[[id number]] Please view results for these tests on [...] Provider Ramsey Zavaleta DO Resident 12/29/23 0413 Rasmey Zavaleta DO Resident 12/29/23 0416 [facility] [employer] 12-28-2023 Telephone encounter Note Faxed recommendation to [facility]. Thank you! Trulia 12-28-2023 Miscellaneous Notes Faxed recommendation to [facility]. Thank you! Please keep doses the same thank you Images from the original note were not included. Patient's BGL documented in this encounter [facility] 12-28-2023 Telephone encounter Note Please keep doses the same thank you [facility] 12-28-2023 Telephone encounter Note Images from the original note were not included. Patient's BGL [facility] 12-23-2023 Procedure note Pt refused to finish last 2 hours of GES, only obtained intial 2 hrs of test. [facility] 12-23-2023 Procedure note Pt refused to finish last 2 hours of GES, only obtained intial 2 hrs of test. documented in this encounter [facility] 12-14-2023 Telephone encounter Note Called [facility] and was on an extended hold. I faxed over recommendation and noted for someone to give us a call to ensure they received the recommendation. Thank you! [facility] 12-14-2023 Miscellaneous Notes Called [facility] and was on an extended hold. I [...] same symptoms. Since patient is back to [facility], patient continues to have some [...] to Dr Lee. Please, advise Ninfa at [facility] of any medication changes and care advise. Phone number is [phone], ask for BEE Ocasio. Ninfa states she did fax over patient glucometer's for a week. Reason for Disposition Blood glucose > 300 mg/dL (16.7 mmol/L) AND two or more times in a row Protocols used: Diabetes - High Blood Ysjdo-IKEUF-AB documented in this encounter [facility] 12-13-2023 Telephone encounter Note Please tell staff that they can give 1/2 the usual dose of u500 insulin if the patient is not eating thank you [facility] [employer] 12-13-2023 Telephone encounter Note Images from the original note were not included. Patient's BGL is below for your review. Thank you! [facility] [employer] 12-13-2023 Telephone encounter Note S: Patient spoke with [facility] nurse regarding high glucometer's and insulin dose questions B: Onset of symptoms/concern about a week A: Patient seen in ER on 12/09/2023 for same symptoms. Since patient is back to [facility], patient continues to have some [...] to Dr Lee. Please, advise Ninfa at [facility] of any medication changes and care advise. Phone number is [phone], ask for BEE Ocasio. Ninfa states she did fax over patient glucometer's for a week. Reason for Disposition Blood glucose > 300 mg/dL (16.7 mmol/L) AND two or more times in a row Protocols used: Diabetes - High Blood Iqnom-AIHPW-LN [facility] [employer] 12-09-2023 Emergency department Note This nurse received report from Margaret Coleman RN 12/09/23 0728 [facility] 12-09-2023 Emergency department Note This nurse received report from Margaret Coleman RN 12/09/23 0728 ED RT Marques called for VBG. Marques states he will be down Dalila Mendes RN 12/09/23 0559 Pt presents to ED c/o nausea and vomiting and headache. EMS states several residents have COVID at facility. Pt states she vomiting 3x today. documented in this encounter [facility] 12-09-2023 Hospital Discharg e instructions Caridad Evans [...] sent through Care Everywhere.Dehydration Discharge Instructions, Adult (Nauruan)Nausea and Vomiting, Adult ED (Nauruan)documented in this encounter [facility] 12-09-2023 Note Sinus rhythm Abnormal R-wave progression, late transition Left ventricular hypertrophy No significant change compared to 08/17/2023 Electronically Signed On 12-09-2023 06:18:33 EST by Caridad FIGUEROA 12-09-2023 Note Sinus rhythm Abnormal R-wave progression, late transition Left ventricular hypertrophy No significant change compared to 08/17/2023 Electronically Signed On 12-09-2023 06:18:33 EST by Caridad FIGUEROA 12-09-2023 Emergency department Note ED RT Marques called for VBG. Marques states he will be down Dalila Mendes RN 12/09/23 0559 [facility] 12-09-2023 Emergency department Triage note Pt presents to ED c/o nausea and vomiting and headache. EMS states several residents have COVID at facility. Pt states she vomiting 3x today. [facility] 12-06-2023 Telephone encounter Note Images from the original note were not included. Patient's BGL [facility] 12-06-2023 Miscellaneous Notes Images from the original note were not included. Patient's BGL documented in this encounter [facility] 11-25-2023 Note Addended by: GERONIMO LEE on: 11/25/2023 12:06 PM Modules accepted: Orders [facility] 11-25-2023 Note Addended by: GERONIMO LEE on: 11/25/2023 12:06 PM Modules accepted: Orders [facility] 11-25-2023 Miscellaneous Notes Addended by: GERONIMO LEE on: 11/25/2023 12:06 PM Modules accepted: Orders Addended by: RADHA BUSBY on: 11/25/2023 11:59 AM Modules accepted: Orders Called nursing facility and spoke with nurse Ninfa. I relayed the message and she verbalized understanding. Updated RX is pending. Thank you! Please increase doses to 200 units with each meal thank you Called [facility] and spoke with nurse ochoa. She verified that patient is taking humulin R U500(250 units with breakfast/175 units with lunch and dinner Please check on insulin doses; will need to increase thank you Images from the original note were not included. Patient's BGL documented in this encounter [facility] 11-25-2023 Note Addended by: RADHA BUSBY on: 11/25/2023 11:59 AM Modules accepted: Orders [facility] 11-25-2023 Note Addended by: RADHA BUSBY on: 11/25/2023 11:59 AM Modules accepted: Orders [facility] 11-25-2023 Telephone encounter Note Called nursing facility and spoke with nurse Ninfa. I relayed the message and she verbalized understanding. Updated RX is pending. Thank you! [facility] 11-24-2023 Telephone encounter Note Please increase doses to 200 units with each meal thank you [facility] Work Phone: 11-24-2023 Miscellaneous Notes Please increase doses to 200 units with each meal thank you Called [facility] and spoke with nurse don. She verified that patient is taking humulin R U500(250 units with breakfast/175 units with lunch and dinner Please check on insulin doses; will need to increase thank you Images from the original note were not included. Patient's BGL documented in this encounter [facility] [employer] 11-24-2023 Telephone encounter Note Called [facility] and spoke with nurse ochoa. She verified that patient is taking humulin R U500(250 units with breakfast/175 units with lunch and dinner Trulia 11-23-2023 Telephone encounter Note Please check on insulin doses; will need to increase thank you Tr[facility] 11-23-2023 Telephone encounter Note Images from the original note were not included. Patient's BGL [facility] 11-17-2023 Note HNO ID: [id number] Author: ELDA REAVES PA-C Service: ? Author Type: Physician Doorperson Or Luggage Porter Type: Progress Notes Filed: 11/17/2023 10:00 Note Text: CHIEF COMPLAINT: Patient presents with: Nausea AND Vomiting HPI: Resident at [facility], SNF and rehab. Will Jacinto is a 58 year old adult with PMHx positive for anxiety, bipolar, HTN, HLD, DM II who presents for Nausea AND Vomiting. On Protonix [address] [facility] admission 2/2 complications from DM, hypoglycemia, altered [...] Us (more content not included)... [facility] 11-09-2023 Telephone encounter Note BGL under media for review. [employer] 11-09-2023 Miscellaneous Notes BGL under media for review. Nabil is faxing over patient's bgl right now. Name of caller: Nabil Contact phone number: [phone] Relationship to Patient: [facility] [place] Provider: Dr Lee Practice: Endocrinology Chief Complaint/Reason [...] their call: Yes documented in this encounter [facility] 11-09-2023 Telephone encounter Note Nabil is faxing over patient's bgl right now. [facility] 11-09-2023 Telephone encounter Note Name of caller: Nabil Contact phone number: [phone] Relationship to Patient: [facility] in [place] Provider: Dr Lee Practice: Endocrinology Chief Complaint/Reason [...] business hours to return their call: Yes [facility] 10-27-2023 History of Presen t illness Narrative . ENDOCRINOLOGY [address] [place], [place] [id number] Dept: [phone] Dept Visit type: Established patient Patient was [...] that they are currently in the state [facility]. If the patient is a minor, [...] the skin daily (before lunch). Lactobacillus Acid-Pectin (Acidophilus/Phoenicia Pectin) tablet Take 1 tablet by mouth [...] side (HCC) Anxiety disorder Bipolar 1 disorder ([facility]) Blood circulation, collateral Cellulitis chronic L lower leg COVID 12/08/2021 Depression Diabetes mellitus ([facility]) Type II, on insulin Disease of blood and blood forming organ Endometrial carcinoma ([facility]) 11/25/2020 Endometrial hyperplasia Foot ulcer ([facility]) Hx of blood clots RLE prior to amputation Hyperlipidemia Hypertension Lymphedema 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, RLE Morbidly obese ([facility]) Muscle weakness Osteomyelitis ([facility]) Osteomyelitis ([facility]) 2019 RLE Other lack of coordination Other specified soft tissue disorders Other symbolic dysfunctions Schizophrenia ([facility]) Sleep apnea no CPAP Venous [...] 06/29/2023 Dr Sergio Sibley at [facility]; no specimens WISDOM TOOTH EXTRACTION Family History [...] Geronimo Lee MD documented in this encounter [facility] 10-16-2023 History of Presen t illness Narrative [facility] called and notified this nurse that they won't be able to pick patient up until 0200 d/t bariatric patient and requires 2 crews. Spoke with staff and [facility] [place] and per staff will still be able to accept patient at that time. [facility] aware ok to transport patient at 0200 to [facility]. Patient updated on delay in transportation. Department of Internal Medicine Division of Endocrinology, Diabetes, & Metabolism Endocrinology Note Patient Name: Will Jacinto : 1965 AGE: 57 y.o. Room/Bed: [facility]/[address] Admission Date: 10/07/2023 Visit Date: 10/16/2023 Reason for Endocrine Consult: U-500 dosing, hypoglycemia Provider/Team Requesting Consult: YUNIER PCP: Jared Guzman Outpt Diesel Service Journeyman: Dr. Lee ASSESSMENT: Type 2 diabetes, uncontrolled, [...] and he presented to the hospital from intermediate for hypoglycemia/unresponsiveness due to poor PO intake. Type of DM: 2 Onset of DM: 1991 DM Medication Regimen: U-500 insulin - 285 units before breakfast/260 units before lunch/285 units before dinner , Trulicity 4.5 mg weekly DM control (last A1c/glucose data): 7.7% on current admission Resides at the [facility] Interim history: Patient was seen at bedside Good PO intake Has intermittent nausea; no vomiting or AP Drinks juice occasionally ID following - on IV Abx; has PICC No SOB or CP Plan for DC to [facility] Date/Time Value Ref Range Status 10/16/2023 11:40 [...] Units, SubCUTAneous, Daily before lunch Lactobacillus Acid-Pectin (Acidophilus/Phoenicia Pectin) tablet 1 tablet, Oral, 2 times [...] found for: CHOLHDLRATIO No results found for: [id number] Lab Results Component Value Date TSH 2.356 11/26/2020 Radiology reportsas per the Radiologist Radiology: CT abdomen pelvis w contrast Result Date: 10/08/2023 [facility] 1965 [id number] Exam Date/Time: 10/08/2023 09:36 Procedure: CT ABDOMEN [...] [facility] 1965 [id number] Exam Date/Time: 10/07/2023 07:31 Procedure: XR CHEST [...] 10/07/2023 Patient Name: WILL JACINTO : 1965 [facility]#: [id number] Exam Date/Time: 10/07/2023 07:29 Procedure: CT HEAD [...] 06/29/2023 Dr Sergio Sibley at [facility]; no specimens WISDOM TOOTH EXTRACTION Allergy(ies): No [...] were not included. Hospitalist Progress Note 10/16/2023 [phone]: Please page IMS night Hospitalist for any issues. Admit Date: 10/07/2023 PCP: Jared Guzman Room#: W4429/[id number] A Brief hospital course: Patient admitted 10/07/2023 for hypoglycemia 2/2 insulin use with poor PO intake, hypothermia, ?sepsis. 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 Initially presented from [facility] with hypoglycemia and unresponsiveness, POC glucose [...] found for: "DDIMER", "PROCAL", "COVID19", "HGBA1C", "TSH", "[id number]", "FOLATE", "VITD25", "CHOL", "TRIG", "HDL", LDLCALC Urine [...] Daily, JEREMY Liao CNP, 180 mg at 10/15/2344 enoxaparin (Lovenox) syringe 30 mg, 30 mg, SubCUTAneous, 2 times per day, JEREMY Liao CNP, 30 mg at 10/15/232044 ertapenem (INVanz) 1,000 mg in sodium chloride 0.9 % 50 mL IVPB Mini-Bag Plus, 1,000 mg, IntraVENous, q24h, Mukul Coreas DO, Stopped at 10/15/23 154 FLUoxetine (PROzac) capsule 40 mg, 40 mg, Oral, Daily, JEREMY Liao CNP, 40 mg at 10/15/23 0944 gabapentin (Neurontin) capsule 100 mg, 100 mg, [...] Daily, Mayda Olmstead MD, 40 mg at 10/11/2342 megestrol (Megace) tablet 20 mg, 20 mg, Oral, BID, JEREMY Liao CNP, 20 mg at 10/15/232045 melatonin tablet 10 mg, 10 mg, Oral, Nightly, JEREMY Liao CNP, 10 mg at 10/15/232044 metoprolol tartrate (Lopressor) tablet 25 mg, 25 mg, Oral, BID, JEREMY Liao CNP, 25 mg at 10/15/232047 ondansetron ODT (Zofran-ODT) disintegrating tablet 4 mg, 4 mg, Oral, q8h PRN OR ondansetron (Zofran) injection 4 mg, 4 mg, IntraVENous, q6h PRN, Marcio Armando MD pantoprazole (ProtoNix) EC tablet 40 mg, 40 mg, Oral, qAM AC, JEREMY Liao CNP, 40 mg at 10/16/23 0619 polyethylene glycol (PEG) 3350 (Miralax) packet 17 g, 17 g, Oral, Daily PRN, JEREMY Liao CNP polyethylene glycol (PEG) 3350 (Miralax) packet 17 g, 17 g, Oral, Daily, JEREMY Liao CNP, 17 g at 10/15/23 0943 prochlorperazine (Compazine) injection 5 mg, 5 mg, IntraVENous, q6h PRN, Marcio Armando MD, 5 mg at 10/13/232139 sodium chloride 0.9% (NS) flush 10 mL, [...] or tomorrow - Location - [facility] - Pending the following - monitor glucose levels through dinner, bed hold no auth req'd and OPAT already sent to facility Marcio Armando MD Division of Hospitalist Medicine Inpatient Medical Services/[facility] Data: Moderate (3x CAT1 -OR- 1x CAT2 -OR- 1x CAT3) Complexity: Acute illness or injury posing a threat to life or body function (HIGH). Risk: Prescription drug/IVF/colloid was initiated, discontinued, adjusted; or reviewed with decision to maintain current orders (MOD). Estimated MDM: Medium (51384/85940) or higher Note: the above MDM determinations [...] Jacinto : 1965 AGE: 57 y.o. Room/Bed: [facility]/[address] Admission Date: 10/07/2023 Visit Date: 10/15/2023 Reason for Endocrine Consult: U-500 dosing, hypoglycemia Provider/Team Requesting Consult: IMS PCP: Jared Guzman Outpt Diesel Service Journeyman: Dr. Lee ASSESSMENT: Type 2 diabetes, uncontrolled, [...] BF for BG 498) -- discussed with SENIOR ENERGY ANALYST/RN Continue Humalog high dose scale with meals [...] and he presented to the hospital from intermediate for hypoglycemia/unresponsiveness due to poor PO intake. Type of DM: 2 Onset of DM: 1991 Home DM Medication Regimen: U-500 insulin - 285 units before breakfast/260 units before lunch/285 units before dinner , Trulicity 4.5 mg weekly DM control (last A1c/glucose data): 7.7% on current admission Resides at the [facility] Interim history: Patient was seen at bedside [...] SOB or CP Plan for DC to [facility] Date/Time Value Ref Range Status 10/15/2023 09:29 [...] before lunch/285 units before dinner Lactobacillus Acid-Pectin (Acidophilus/Phoenicia Pectin) tablet 1 tablet, Oral, 2 times [...] found for: CHOLHDLRATIO No results found for: [id number] Lab Results Component Value Date TSH 2.356 [...] side (HCC) Anxiety disorder Bipolar 1 disorder ([facility]) Blood circulation, collateral Cellulitis chronic L lower leg COVID 12/08/2021 Depression Diabetes mellitus ([facility]) Type II, on insulin Disease of blood and blood forming organ Endometrial carcinoma ([facility]) 11/25/2020 Endometrial hyperplasia Foot ulcer ([facility]) Hx of blood clots RLE [...] FOOT; ACH COLONOSCOPY 09/19/[address] Esber DILATION AND CURETTAGE OF UTERUS 05/18/2019 HYSTEROSCOPY 12/23/2021 LEG AMPUTATION THROUGH KNEE Right 06/16/2019 UPPER GASTROINTESTINAL ENDOSCOPY N/A 06/29/2023 Dr Sergio Sibley at [facility]; no specimens WISDOM TOOTH EXTRACTION Allergy(ies): No [...] were not included. Hospitalist Progress Note 10/15/2023 [phone]: Please page [facility] Hospitalist for any issues. Admit Date: 10/07/2023 [...] bipolar type, transgender (F2M). Initially presented from [facility] with hypoglycemia and unresponsiveness, POC glucose [...] INTAKE/OUTPUT: Intake/Output Summary (Last 24 hours) at 10/15/2023 09 Last data filed at 10/15/2023 0500 Gross per 24 hour Intake 720 ml Output 1450 ml Net -730 ml 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 other toe(s), unspecified side ([facility]) Anxiety disorder Bipolar 1 disorder ([facility]) Blood circulation, collateral Cellulitis chronic L lower leg COVID 12/08/2021 Depression Diabetes mellitus ([facility]) Type II, on insulin Disease of blood and blood forming organ Endometrial carcinoma ([facility]) 11/25/2020 Endometrial hyperplasia Foot ulcer ([facility]) Hx of blood clots RLE prior to amputation Hyperlipidemia Hypertension Lymphedema 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, RLE Morbidly obese ([facility]) Muscle weakness Osteomyelitis ([facility]) Osteomyelitis ([facility]) 2019 RLE Other lack of coordination Other specified soft tissue disorders Other symbolic dysfunctions Schizophrenia ([facility]) Sleep apnea no CPAP Venous [...] 8.8 ANIONGAP 10 7 Recent Labs 10/13/23 011 MG 1.7 (MG, CRP, SEDRATE, and CKTOTAL [...] found for: "DDIMER", "PROCAL", "COVID19", "HGBA1C", "TSH", "[id number]", "FOLATE", "VITD25", "CHOL", "TRIG", "HDL", LDLCALC Urine [...] Daily, JEREMY Liao CNP, 40 mg at 10/14/23 0920 gabapentin (Neurontin) capsule 100 mg, 100 mg, Oral, BID, Rachael Robertson APRN - KRANTHI, 100 mg at 10/14/232006 glucagon (human recombinant) injection 1 mg, 1 mg, IntraMUSCular, PRN, Rachale Robertson APRN - KRANTHI glucose oral gel [...] - 10/16 - Location - Skilled Facility, [facility] - Pending the following - final endo recs, bed hold no auth req'd and OPAT already sent to facility Marcio Armando MD Division of Hospitalist Medicine Inpatient Medical Services/[facility] Data: Moderate (3x CAT1 -OR- 1x CAT2 -OR- 1x CAT3) Complexity: Acute illness or injury posing a threat to life or body function (HIGH). Risk: Prescription drug/IVF/colloid was initiated, discontinued, adjusted; or reviewed with decision to maintain current orders (MOD). Estimated MDM: Medium (42531/47839) or higher Note: the above MDM determinations are made by me for my own use to estimate my end-of-day billing codes. However, documentation is reviewed by professional coders; following their review of documentation, and in accordance with current AMA CPT, CMS, and ACDIS guidelines, the actual billing code(s) may differ from my estimate. Images from the original note were not included. [facility] - Infectious Diseases Attending Progress Note [...] Component Value Date/Time NA 134 (L) 10/14/2023 031 K 3.9 10/14/2023 0315 CL 102 10/14/2023 0315 CO2 25 10/14/2023 0315 CO2 23 02/09/2023 1022 BUN 35 10/14/2023 0315 BUN 26 (H) 02/09/2023 1022 CREATININE 0.98 10/14/2023 031 CREATININE 0.86 02/09/2023 1022 GLUCOSE 250 (H) 10/14/2023 0315 GLUCOSE 433 (H) 02/09/2023 1022 CALCIUM 8.8 10/14/2023 031 CALCIUM 9.2 02/09/2023 1022 PROT 6.5 10/11/2023 [...] be of low complexity. Mukul Coreas DO [facility] Infect[place] Diseases Office Tel. 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) Weight Loss: Unable to assess (no new/acute weight to assess) Body Fat Loss: No significant body fat loss Muscle Mass Loss: No significant muscle mass loss Fluid Accumulation: Mild Extremities, Generalized Allergy And Immunology Chief Strength: Not Performed Nutrition Assessment: Pt with previously noted PMH including DM w/ gastroparesis (documented as 'brittle') & polyneuropathy, HTN, HLD, s/p R AKA presented initially from nursing facility due to hypoglycemia and unresponsiveness; pt was noted to have poor PO intake for at least 4 days GARAGE [employer]OR OPENER INSTALLER in addition to N/V, when pt was [...] limited documentation in chart to review, per pet care technician appears pt had 2 small yogurts this [...] is likely r/t uncontrolled DM; at facility ([facility]) pt enjoys/tolerates some meals, others do 'not [...] 152 kg (335 lb) (03/08/23 Deedee scale) [place] Body Weight (lbs) (Calculated): 130 lbs [place] Body Weight (Kg) (Calculated): 59 kg Weight Adjustment For: Amputation % Weight Adjustment: 10.1 - AKA Total Adjusted Percentage (Calculated): 10.1 Adjusted [place] Body Weight (lbs) (Calculated): 116.9 lbs Adjusted [place] Body Weight (kg) (Calculated): 53.14 kg BMI [...] Discharge Planning: Too soon to determine Ana Reyes, RD Contact: Secure chat or [phone] Department of Internal Medicine Division of Endocrinology, Diabetes, & Metabolism Endocrinology Note Patient Name: Will Jacinto : 1965 AGE: 57 y.o. Room/Bed: [facility]/[address] Admission Date: 10/07/2023 Visit Date: 10/14/2023 Reason for Endocrine Consult: U-500 dosing, hypoglycemia Provider/Team Requesting Consult: [facility] PCP: Jared Guzman Outpt Diesel Service Journeyman: Dr. Lee ASSESSMENT: Type 2 diabetes with [...] and he presented to the hospital from intermediate for hypoglycemia/unresponsiveness due to poor PO intake. Type of DM: 2 Onset of DM: 1991 Home DM Medication Regimen: U-500 insulin - 285 units before breakfast/260 units before lunch/285 units before dinner , Trulicity 4.5 mg weekly DM control (last A1c/glucose data): 7.7% on current admission Resides at the [facility] Interim history: Patient was seen at bedside Poor PO intake yesterday due to nausea No vomiting or AP Nausea better today Ate BF -- 2 yogurts Not drinking Ensure, mostly diet Coke Pt was off his Pure wick - urinated on the bed pad ID following - on IV Abx Plan for DC to [facility] [place] Glucose Date/Time Value Ref Range Status 10/14/2023 [...] before lunch/285 units before dinner Lactobacillus Acid-Pectin (Acidophilus/Phoenicia Pectin) tablet 1 tablet, Oral, 2 times [...] found for: CHOLHDLRATIO No results found for: [id number] Lab Results Component Value Date TSH 2.356 11/26/2020 Radiology reportsas per the Radiologist Radiology: CT abdomen pelvis w contrast Result Date: 10/08/2023 [facility] 1965 [id number] Exam Date/Time: 10/08/2023 09:36 Procedure: CT ABDOMEN [...] Acquired absence of other toe(s), unspecified side ([facility]) Anxiety disorder Bipolar 1 disorder ([facility]) Blood circulation, collateral Cellulitis chronic L lower leg COVID 12/08/2021 Depression Diabetes mellitus ([facility]) Type II, on insulin Disease of blood and blood forming organ Endometrial carcinoma ([facility]) 11/25/2020 Endometrial hyperplasia Foot ulcer ([facility]) Hx of blood clots RLE prior to amputation Hyperlipidemia Hypertension Lymphedema 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, RLE Morbidly obese ([facility]) Muscle weakness Osteomyelitis ([facility]) Osteomyelitis ([facility]) 2019 RLE Other lack of coordination Other specified soft tissue disorders Other symbolic dysfunctions Schizophrenia ([facility]) Sleep apnea no CPAP Venous insufficiency Past Surgical History: Past Surgical History: Procedure Laterality Date ABCESS DRAINAGE Right 09/09/2018 FOOT; ACH COLONOSCOPY 09/19/[address] Hyde DILATION AND CURETTAGE OF UTERUS 05/18/2019 HYSTEROSCOPY 12/23/2021 LEG AMPUTATION THROUGH KNEE Right 06/16/2019 UPPER GASTROINTESTINAL ENDOSCOPY N/A 06/29/2023 Dr Sergio Sibley at [facility]; no specimens WISDOM TOOTH EXTRACTION Allergy(ies): No [...] were not included. Hospitalist Progress Note 10/14/2023 [phone]: Please page [facility] night Hospitalist for any issues. [...] bipolar type, transgender (F2M). Initially presented from [facility] with hypoglycemia and unresponsiveness, POC glucose [...] side (HCC) Anxiety disorder Bipolar 1 disorder ([facility]) Blood circulation, collateral Cellulitis chronic L lower leg COVID 12/08/2021 Depression Diabetes mellitus ([facility]) Type II, on insulin Disease of blood and blood forming organ Endometrial carcinoma ([facility]) 11/25/2020 Endometrial hyperplasia Foot ulcer ([facility]) Hx of blood clots RLE prior to amputation Hyperlipidemia Hypertension Lymphedema 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, RLE Morbidly obese ([facility]) Muscle weakness Osteomyelitis (HCC) Osteomyelitis ([facility]) 2019 RLE Other lack of coordination Other specified soft tissue disorders Other symbolic dysfunctions Schizophrenia ([facility]) Sleep apnea no CPAP Venous [...] found for: "DDIMER", "PROCAL", "COVID19", "HGBA1C", "TSH", "[id number]", "FOLATE", "VITD25", "CHOL", "TRIG", "HDL", LDLCALC Urine [...] Robertson APRN - KRANTHI, Given at 10/13/23 214 dextrose 5 % infusion, 100 mL/hr, IntraVENous, PRN, Rachael Robertson APRN - KRANTHI, Stopped at 10/10/23 0552 dextrose 50 % solution 12.5 g, 12.5 g, IntraVENous, PRN, Rachael Robertson APRN - YARD ATTENDANT dilTIAZem CD (Cardizem CD) 24 hr capsule 180 mg, 180 mg, Oral, Daily, Rachael Robertson APRN - YARD ATTENDANT, 180 mg at 10/13/23 0809 enoxaparin (Lovenox) [...] Daily, JEREMY Liao CNP, 40 mg at 10/13/23 0809 gabapentin (Neurontin) [...] WC, Amrita Garcia MD, 6 Units at 10/13/232 Insulin Lispro (Humalog) injection 60 Units, 60 [...] mg, 25 mg, Oral, BID, Rachael Robertson DIRECTOR WOMEN - YARD ATTENDANT, 25 mg at 10/13/23 214 ondansetron (Zofran) tablet 4 mg, 4 mg, Oral, q6h PRN, Rachael Robertson DIRECTOR WOMEN - YARD ATTENDANT, 4 mg at 10/14/23 06 pantoprazole (ProtoNix) EC tablet 40 mg, 40 mg, Oral, qAM AC, Rachael Robertson, DIRECTOR WOMEN - YARD ATTENDANT, 40 mg at 10/14/23 0611 polyethylene glycol (PEG) 3350 (Miralax) packet 17 g, 17 g, Oral, Daily PRN, Rachael Robertson DIRECTOR WOMEN - YARD ATTENDANT polyethylene glycol (PEG) 3350 (Miralax) packet 17 g, 17 g, Oral, Daily, Rachael Robertson, DIRECTOR WOMEN - YARD ATTENDANT, 17 g at 10/13/23 0809 prochlorperazine (Compazine) injection 5 mg, 5 mg, IntraVENous, q6h PRN, Mayda Olmstead MD, 5 mg at 10/13/23 214 sodium chloride 0.9% (NS) flush 10 mL, [...] following mgmt was pursued: - ID following, natali recs - erta through 10/21 (complete 14-days [...] - 10/15 - Location - Skilled Facility, [facility] - Pending the following - bed hold no auth req'd Marcio Armando MD Division of Hospitalist Medicine Inpatient Medical Services/[facility] [place] Data: Moderate (3x CAT1 -OR- 1x CAT2 -OR- 1x CAT3) Complexity: Acute illness or injury posing a threat to life or body function (HIGH). Risk: Prescription drug/IVF/colloid was initiated, discontinued, adjusted; or reviewed with decision to maintain current orders (MOD). Estimated MDM: Medium (04756/27851) or higher Note: the above MDM determinations [...] SpO2 on RA, 75 HR, BG 232. CRIBBING SETTER called. 2118 vitals: 152/75, HR 75, OdV715% on RA Department of Internal Medicine Division of Endocrinology, Diabetes, & Metabolism Endocrinology Note Patient Name: Will Jacinto : 1965 AGE: 57 y.o. Room/Bed: [facility] A Admission Date: 10/07/2023 Visit Date: 10/13/2023 Reason for Endocrine Consult: U-500 dosing, hypoglycemia Provider/Team Requesting Consult: [facility] PCP: Jared Guzman Outpt Diesel Service Journeyman: Dr. Lee ASSESSMENT: Type 2 diabetes with [...] and he presented to the hospital from intermediate for hypoglycemia/unresponsiveness due to poor PO intake. Type of DM: 2 Onset of DM: 1991 Home DM Medication Regimen: U-500 insulin - 285 units before breakfast/260 units before lunch/285 units before dinner , Trulicity 4.5 mg weekly DM control (last A1c/glucose data): 7.7% on current admission Resides at the [facility] Interim history: Patient was seen at bedside [...] before lunch/285 units before dinner Lactobacillus Acid-Pectin (Acidophilus/Phoenicia Pectin) tablet 1 tablet, Oral, 2 times [...] found for: CHOLHDLRATIO No results found for: [id number] Lab Results Component Value Date TSH 2.356 11/26/2020 Radiology reportsas per the Radiologist Radiology: CT abdomen pelvis w contrast Result Date: 10/08/2023 [facility]: [facility] 1965 [id number] Exam Date/Time: 10/08/2023 09:36 Procedure: CT ABDOMEN [...] Acquired absence of other toe(s), unspecified side ([facility]) Anxiety disorder Bipolar 1 disorder ([facility]) Blood circulation, collateral Cellulitis chronic L lower leg COVID 12/08/2021 Depression Diabetes mellitus ([facility]) Type II, on insulin Disease of blood and blood forming organ Endometrial carcinoma ([facility]) 11/25/2020 Endometrial hyperplasia Foot ulcer ([facility]) Hx of blood clots RLE prior to amputation Hyperlipidemia Hypertension Lymphedema 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, RLE Morbidly obese ([facility]) Muscle weakness Osteomyelitis ([facility]) Osteomyelitis ([facility]) 2019 RLE Other lack of coordination Other specified soft tissue disorders Other symbolic dysfunctions Schizophrenia ([facility]) Sleep apnea no CPAP Venous insufficiency Past Surgical History: Past Surgical History: Procedure Laterality Date ABCESS DRAINAGE Right 09/09/2018 FOOT; ACH COLONOSCOPY 09/19/[address] Hyde DILATION AND CURETTAGE OF UTERUS 05/18/2019 HYSTEROSCOPY 12/23/2021 LEG AMPUTATION THROUGH KNEE Right 06/16/2019 UPPER GASTROINTESTINAL ENDOSCOPY N/A 06/29/2023 Dr Sergio Sibley at [facility]; no specimens WISDOM TOOTH EXTRACTION Allergy(ies): No [...] were not included. Hospitalist Progress Note 10/13/2023 [phone]: Please page [facility] night Hospitalist for any [...] bipolar type, transgender (F2M). Initially presented from [facility] with hypoglycemia and unresponsiveness, POC glucose [...] of today's encounter. HEME: Recent Labs 10/11/23 03510/12/2340110/13/23117 WBC 9.4 7.4 9.1 RBC 3.82 4.40 3.73 HGB 10.9* 12.4 10.5* HCT 32.1 37.5 31.7 MCV 84.2 85.1 84.9 RDW 14.8* 14.8* 14.7* PLT 347 355 324 CHEM: Recent Labs 10/11/23 0355 10/11/23 1803 10/12/23 0402 10/13/23 011 NA 128* -- 131* 129* K 4.2 [...] found for: "DDIMER", "PROCAL", "COVID19", "HGBA1C", "TSH", "[id number]", "FOLATE", "VITD25", "CHOL", "TRIG", "HDL", LDLCALC Urine [...] Oral, q4h PRN, Rachael Robertson APRN - YARD ATTENDANT, 650 mg at 10/13/23 0117 ARIPiprazole (Abilify) tablet 10 mg, 10 mg, Oral, q24h, Rachael Robertson, DIRECTOR WOMEN - YARD ATTENDANT, 10 mg at 10/12/23 1726 aspirin EC tablet 81 mg, 81 mg, Oral, Daily, Rachael Robertson APRN - YARD ATTENDANT, 81 mg at 10/13/23 0809 atorvastatin (Lipitor) tablet 10 mg, 10 mg, Oral, Nightly, Rachael Robertson DIRECTOR WOMEN - YARD ATTENDANT, 10 mg at 10/12/232007 clotrimazole (Lotrimin) 1 % cream, , Topical, BID, Rachael Robertson APRN - YARD ATTENDANT, Given at 10/13/23 0810 dextrose 5 % infusion, 100 mL/hr, IntraVENous, PRN, Rachael Robertson APRN - YARD ATTENDANT, Stopped at 10/10/23 0552 dextrose 50 % solution 12.5 g, 12.5 g, IntraVENous, PRN, Rachael Robertson APRN - YARD ATTENDANT dilTIAZem CD (Cardizem CD) 24 hr capsule 180 mg, 180 mg, Oral, Daily, Rachael Robertson APRN - YARD ATTENDANT, 180 mg at 10/13/23 0809 enoxaparin (Lovenox) syringe 30 mg, 30 mg, SubCUTAneous, 2 times per day, Rachael Robertson APRN - YARD ATTENDANT, 30 mg at 10/13/23 0809 ertapenem (INVanz) 1,000 mg in sodium chloride 0.9 % 50 mL IVPB Mini-Bag Plus, 1,000 mg, IntraVENous, q24h, Mukul Coreas DO, Stopped at 10/12/23 1631 FLUoxetine (PROzac) capsule 40 mg, 40 mg, Oral, Daily, Rachael Robertson APRN - YARD ATTENDANT, 40 mg at 10/13/23 0809 gabapentin (Neurontin) capsule 100 mg, 100 mg, Oral, BID, Rachael Robertson, DIRECTOR WOMEN - YARD ATTENDANT, 100 mg at 10/13/23 0809 glucagon (human recombinant) injection 1 mg, 1 mg, IntraMUSCular, PRN, Rachael Robertson APRN - YARD ATTENDANT glucose oral gel 15 g, 15 g, [...] Oral, Daily PRN, Rachael Robertson APRN - YARD ATTENDANT polyethylene glycol (PEG) 3350 (Miralax) packet 17 [...] insulin regimen Marcio Armando MD [facility] Medical Services/[facility] [place] Data: Moderate (3x CAT1 -OR- 1x CAT2 [...] of recurrent hypoglycemia (HIGH). Estimated MDM: High (81418/79175) Note: the above MDM determinations are made [...] Jacinto : 1965 AGE: 57 y.o. Room/Bed: [facility] A Admission Date: 10/07/2023 Visit Date: 10/12/2023 Reason for Endocrine Consult: U-500 dosing, hypoglycemia Provider/Team Requesting Consult: [facility] PCP: Jared Guzman Outpt Diesel Service Journeyman: Dr. Lee ASSESSMENT: Type 2 diabetes with [...] and he presented to the hospital from intermediate for hypoglycemia/unresponsiveness due to poor PO intake. Type of DM: 2 Onset of DM: 1991 DM Medication Regimen: U-500 insulin - 285 units before breakfast/260 units before lunch/285 units before dinner , Trulicity 4.5 mg weekly DM control (last A1c/glucose data): 7.7% on current admission Resides at the [facility] Interim history: Patient was seen at bedside [...] before lunch/285 units before dinner Lactobacillus Acid-Pectin (Acidophilus/Phoenicia Pectin) tablet 1 tablet, Oral, 2 times [...] found for: CHOLHDLRATIO No results found for: [id number] Lab Results Component Value Date TSH 2.356 [...] 10/07/2023 Patient Name: WILL JACINTO : 1965 [facility]#: [id number] Exam Date/Time: 10/07/2023 07:29 Procedure: CT HEAD [...] 06/29/2023 Dr Sergio Sibley at [facility]; no specimens WISDOM TOOTH EXTRACTION Allergy(ies): No [...] not included. [facility] - Infectious Diseases Attending Progress Note Subjective- Following for BSI d/t Acinetobacter lwoffii. Pt resting comfortably in bed. States that abdominal pain has improved. Tolerating regular diet. Denies F/C. PICC line has been placed. Interval Events- Pt is afebrile. WBC WNL at 7.4. Hyperglycemic today at 401. Planning to complete IV course w/ ertapenem via PICC. [facility] when medically [facility]. Objective- Vitals- Patient Vitals [...] be of moderate complexity. Mukul Coreas DO [facility] Infectious Diseases Office Tel. [phone] Images from the original note were not included. Hospitalist Progress Note 10/12/2023 [phone]: Please page [facility] night Hospitalist for any issues. [...] bipolar type, transgender (F2M). Initially presented from [facility] with hypoglycemia and unresponsiveness, POC glucose [...] Acquired absence of other toe(s), unspecified side ([facility]) Anxiety disorder Bipolar 1 disorder ([facility]) Blood circulation, collateral Cellulitis chronic L lower leg COVID 12/08/2021 Depression Diabetes mellitus ([facility]) Type II, on insulin Disease of blood and blood forming organ Endometrial carcinoma ([facility]) 11/25/2020 Endometrial hyperplasia Foot ulcer ([facility]) Hx of blood clots RLE prior to amputation Hyperlipidemia Hypertension Lymphedema 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, RLE Morbidly obese ([facility]) Muscle weakness Osteomyelitis ([facility]) Osteomyelitis ([facility]) 2019 RLE Other lack of coordination Other specified soft tissue disorders Other symbolic dysfunctions Schizophrenia ([facility]) Sleep apnea no CPAP Venous [...] found for: "DDIMER", "PROCAL", "COVID19", "HGBA1C", "TSH", "QVIRDQFD21", "FOLATE", "VITD25", "CHOL", "TRIG", "HDL", LDLCALC Urine [...] sodium chloride 0.9 % 100 mL IVPB (Add-Galax), 3,000 mg, IntraVENous, q6h, Skylar Larkin PA-C, Stopped at 10/12/23 0424 ARIPiprazole (Abilify) tablet 10 mg, 10 mg, Oral, q24h, JEREMY Liao CNP, 10 mg at 10/11/23 1556 aspirin EC tablet 81 mg, 81 mg, Oral, Daily, JEREMY Liao CNP, 81 mg at 10/11/23 0941 atorvastatin (Lipitor) tablet 10 mg, 10 mg, Oral, Nightly, Rachael Robertson APRN - KRANTHI, 10 mg at 10/11/23 2019 clotrimazole (Lotrimin) 1 % cream, , Topical, BID, JEREMY Liao CNP, Given at 10/11/23 212 dextrose 5 % infusion, 100 mL/hr, IntraVENous, PRN, Rachael Robertson APRN - KRANTHI, Stopped at 10/10/23 0552 dextrose 50 % solution 12.5 g, 12.5 g, IntraVENous, PRN, JEREMY Liao CNP dilTIAZem CD (Cardizem CD) 24 hr capsule 180 mg, 180 mg, Oral, Daily, JEREMY Liao CNP, 180 mg at 10/11/23 09 enoxaparin (Lovenox) syringe 30 mg, 30 mg, SubCUTAneous, 2 times per day, JEREMY Liao CNP, 30 mg at 10/11/232018 FLUoxetine (PROzac) capsule 40 mg, 40 mg, Oral, Daily, JEREMY Liao CNP, 40 mg at 10/11/23 09 gabapentin (Neurontin) capsule 100 mg, 100 mg, Oral, BID, JEREMY Liao CNP, 100 mg at 10/11/232018 glucagon (human recombinant) injection 1 mg, 1 mg, IntraMUSCular, PRN, JEREMY Liao CNP glucose oral gel 15 g, 15 g, Oral, PRN, JEREMY Liao CNP, 15 g at 10/10/23 0216 Insulin Lispro (Humalog) injection 0-18 Units, 0-18 Units, SubCUTAneous, TID , Amrita Garcia MD Insulin Lispro (Humalog) injection 25 Units, 25 Units, SubCUTAneous, TID , Amrita Garcia MD, 25 Units at 10/11/23 1740 insulin NPH (Isophane) (HumuLIN N,NovoLIN N) injection 40 Units, 40 Units, SubCUTAneous, BID, Amrita Garcia MD, 40 Units at 10/11/232124 labetalol (Normodyne,Trandate) injection 20 mg, 20 mg, [...] Nightly, JEREMY Liao CNP, 10 mg at 10/11/232018 metoprolol tartrate (Lopressor) tablet 25 mg, 25 mg, Oral, BID, Rachael Robertson APRN - KRANTHI, 25 mg at 10/11/232018 ondansetron (Zofran) tablet 4 mg, 4 mg, Oral, q6h PRN, Rachael Robertson APRN - YARD ATTENDANT, 4 mg at 10/11/232041 pantoprazole (ProtoNix) EC tablet 40 mg, 40 mg, Oral, qAM AC, Rachael Robertson APRN - YARD ATTENDANT, 40 mg at 10/12/23 0550 polyethylene glycol [...] endocrine recs Marcio Armando MD Division of Hospitalist Medicine Inpatient Medical Services/[facility] [place] Data: Extensive (Two out of three: 3x CAT1, 1x CAT2, 1x CAT3) Complexity: Acute illness or injury posing a threat to life or body function (HIGH). Risk: Prescription drug/IVF/colloid was initiated, discontinued, adjusted; or reviewed with decision to maintain current orders (MOD). Use/consideration of a therapy requiring intensive monitoring (HIGH). Estimated MDM: High (91564/65106) Note: the above MDM determinations are made [...] loss Fluid Accumulation: No significant fluid accumulation Allergy And Immunology Chief Strength: Not Performed Nutrition Assessment: Patient is a 57-year-old transgender male with history of type 2 diabetes, hypertension, hyperlipidemia, diabetic polyneuropathy, s/p right AKA and he presented to the hospital from intermediate for hypoglycemia/unresponsiveness. Per notes patient has had poor p.o. intake for the last 4 days in addition to nausea and vomiting. However it appears that he was noted to be unresponsive and was found to have a blood glucose of 36 in the intermediate. 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 Patient requesting to have Ensure HP 3x/day. [...] (kg): 53 kg Total Energy Requirements (kcals/day): 3437-2559 (30-35) Weight Used for Protein Requirements: Adjusted [...] 152 kg (335 lb) (03/08/23 Deedee scale) [place] Body Weight (lbs) (Calculated): 130 lbs [place] Body Weight (Kg) (Calculated): 59 kg Weight Adjustment For: Amputation % Weight Adjustment: 10.1 - AKA Total Adjusted Percentage (Calculated): 10.1 Adjusted [place] Body Weight (lbs) (Calculated): 116.9 lbs Adjusted [place] Body Weight (kg) (Calculated): 53.14 kg BMI [...] diet Marcela Escamilla, MS KAYLA LD Contact: [employer] armani or [phone] Images from the original note were not included. [facility] - Infectious Diseases Attending Progress Note [...] IV ampicillin/sulbactam. Plan [facility] when medically [facility]. Objective- Vitals- Patient Vitals [...] HCT 32.1 10/11/2023 0355 PLT 347 10/11/2023 035 GRANULOCYTES 73.2 12/08/2020 1558 LYMPHOPCT 26.5 10/08/2023 [...] be of moderate complexity. Mukul Coreas DO [facility] Infectious Diseases Office Tel. [phone] Department of Internal Medicine Division of Endocrinology, Diabetes, & Metabolism Endocrinology Note Patient Name: Will Jacinto : 1965 AGE: 57 y.o. Room/Bed: [facility]/[address] Admission Date: 10/07/2023 Visit Date: 10/11/2023 Reason for Endocrine Consult: U-500 dosing, hypoglycemia Provider/Team Requesting Consult: I[facility] PCP: aJred Guzman Outpt Diesel Service Journeyman: Dr. Lee ASSESSMENT: Type 2 diabetes with [...] and he presented to the hospital from intermediate for hypoglycemia/unresponsiveness. Patient had received 260 units [...] Lying Pulse: 92 89 92 Resp: 22 Temp: 36.3 C (97.4 F) (!) [...] before lunch/285 units before dinner Lactobacillus Acid-Pectin (Acidophilus/Phoenicia Pectin) tablet 1 tablet, Oral, 2 times [...] found for: CHOLHDLRATIO No results found for: [id number] Lab Results Component Value Date TSH 2.356 11/26/2020 Radiology reportsas per the Radiologist Radiology: CT abdomen pelvis w contrast Result Date: 10/08/2023 Patient Name: WILL JACINTO : 1965 [facility]#: [id number] Exam Date/Time: 10/08/2023 09:36 Procedure: CT ABDOMEN [...] side (HCC) Anxiety disorder Bipolar 1 disorder ([facility]) Blood circulation, collateral Cellulitis chronic L lower leg COVID 12/08/2021 Depression Diabetes mellitus ([facility]) Type II, on insulin Disease of blood and blood forming organ Endometrial carcinoma ([facility]) 11/25/2020 Endometrial hyperplasia Foot ulcer ([facility]) Hx of blood clots RLE prior to amputation Hyperlipidemia Hypertension Lymphedema 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, RLE Morbidly obese ([facility]) Muscle weakness Osteomyelitis (HCC) Osteomyelitis (HCC) 2019 RLE Other lack of coordination Other specified soft tissue disorders Other symbolic dysfunctions Schizophrenia ([facility]) Sleep apnea no CPAP Venous insufficiency Past Surgical History: Past Surgical History: Procedure Laterality Date ABCESS DRAINAGE Right 09/09/2018 FOOT; ACH COLONOSCOPY 09/19/[address] Hyde DILATION AND CURETTAGE OF UTERUS 05/18/2019 HYSTEROSCOPY 12/23/2021 LEG AMPUTATION THROUGH KNEE Right 06/16/2019 UPPER GASTROINTESTINAL ENDOSCOPY N/A 06/29/2023 Dr Sergio Sibley at [facility]; no specimens WISDOM TOOTH EXTRACTION Allergy(ies): No [...] were not included. Hospitalist Progress Note 10/11/[phone]: Please page IMS night Hospitalist for any [...] bipolar type, transgender (F2M). Initially presented from [facility] with hypoglycemia and unresponsiveness, POC glucose [...] Oral, q4h PRN, Rachael Robertson APRN - YARD ATTENDANT, 650 mg at 10/08/23 0554 ampicillin-sulbactam (Unasyn) 3,000 mg in sodium chloride 0.9 % 100 mL IVPB (Add-Galax), 3,000 mg, IntraVENous, q6h, Skylar Larkin PA-C, Last Rate: 200 mL/hr at 10/11/23 0646, 3,000 mg at 10/11/23 0646 ARIPiprazole (Abilify) tablet 10 mg, 10 mg, Oral, q24h, Rachael Robertson APRN - KRANTHI, 10 mg at 10/09/23 175 aspirin EC tablet 81 mg, 81 mg, Oral, Daily, Rachael Robertson APRN - YARD ATTENDANT, 81 mg at 10/10/23 0907 atorvastatin (Lipitor) tablet 10 mg, 10 mg, Oral, Nightly, Rachael Robertson APRN - YARD ATTENDANT, 10 mg at 10/10/232042 clotrimazole (Lotrimin) 1 % cream, , Topical, BID, Rachael Robertson APRN - YARD ATTENDANT, Given at 10/10/232042 dextrose 5 % infusion, 100 mL/hr, IntraVENous, PRN, Rachael Robertson APRN - KRANTHI, Stopped at 10/10/23 05 dextrose 50 % solution 12.5 g, 12.5 g, IntraVENous, PRN, Rachael Robertson APRN - YARD ATTENDANT dilTIAZem CD (Cardizem CD) 24 hr capsule 180 mg, 180 mg, Oral, Daily, Rachael Robertson APRN - YARD ATTENDANT, 180 mg at 10/10/23908 enoxaparin (Lovenox) syringe 30 mg, 30 mg, SubCUTAneous, 2 times per day, Rachael Robertson APRN - YARD ATTENDANT, 30 mg at 10/10/232043 FLUoxetine (PROzac) capsule 40 mg, 40 mg, Oral, Daily, Rachael Robertson APRN - YARD ATTENDANT, 40 mg at 10/10/23908 gabapentin (Neurontin) capsule 100 mg, 100 mg, Oral, BID, Rachael Robertson APRN - YARD ATTENDANT, 100 mg at 10/10/232042 glucagon (human recombinant) injection 1 mg, 1 mg, IntraMUSCular, PRN, Rachael Robertson APRN - YARD ATTENDANT glucose oral gel 15 g, 15 g, Oral, PRN, Rachael Robertson APRN - YARD ATTENDANT, 15 g at 10/10/23 0216 influenza vac subunit quadrivalent (Flucelvax) injection 0.5 mL, 0.5 mL, IntraMUSCular, Once, JEREMY Liao CNP Insulin Lispro (Humalog) injection 0-12 Units, 0-12 Units, SubCUTAneous, TID , Amrita Garcia MD [...] Daily, Mayda Olmstead MD, 40 mg at 10/10/23 182 megestrol (Megace) tablet 20 mg, 20 mg, [...] MD Division of Hospitalist Medicine Inpatient Medical Services/[facility] Data: Moderate (3x CAT1 -OR- 1x CAT2 -OR- 1x CAT3) Complexity: Acute illness or injury posing a threat to life or body function (HIGH). Risk: Use/consideration of therapy requiring intensive monitoring: parenteral cardioactive electrolyte repletion, ex: calcium gluconate, magnesium, potassium (rapid hypotension, arrhythmias or arrest); telemetry, BMP (HIGH). Estimated MDM: High (86122/45870) Note: the above MDM determinations are made by me for my own use to estimate my end-of-day billing codes. However, documentation is reviewed by professional coders; following their review of documentation, and in accordance with current AMA CPT, CMS, and ACDIS guidelines, the actual billing code(s) may differ from my estimate. [facility] Respiratory Care Department Progress Note Comment or [...] from the original note were not included. [facility] - Infectious Diseases Advanced Practice Provider [...] 0.83* -- -- -- Recent Labs 10/08/23 030 WBC 10.1 HGB 10.6* HCT 31.6 PLT [...] Tray (Disposables); 5 carb choices (75 gm/meal) @[id number]@ 24HR INTAKE/OUTPUT: Intake/Output Summary (Last 24 hours) [...] soft tissue disorders Other symbolic dysfunctions Schizophrenia ([facility]) Sleep apnea no CPAP Venous insufficiency LABS: CBC: Recent Labs 10/08/23306 WBC 10.1 RBC 3.72 HGB 10.6* HCT 31.6 MCV 84.9 RDW 15.7* PLT 339 BMP: Recent Labs 10/08/2330610/09/2390210/10/23226 NA 130* 130* -- K 4.2 4.5 [...] 10/10/2023 Division of Hospitalist Medicine Inpatient Medical Services/[facility] PAGER: [phone] Department of Internal Medicine Division of Endocrinology, Diabetes, & Metabolism Endocrinology Note Patient Name: Will Jacinto : 1965 AGE: 57 y.o. Room/Bed: [facility] A Admission Date: 10/07/2023 Visit Date: 10/10/2023 Reason for Endocrine Consult: U-500 dosing, hypoglycemia Provider/Team Requesting Consult: YUNIER PCP: Jared Guzman Outpt Diesel Service Journeyman: Dr. Lee ASSESSMENT: Type 2 diabetes with [...] and he presented to the hospital from intermediate for hypoglycemia/unresponsiveness. Patient had received 260 units [...] before lunch/285 units before dinner Lactobacillus Acid-Pectin (Acidophilus/Phoenicia Pectin) tablet 1 tablet, Oral, 2 times [...] found for: CHOLHDLRATIO No results found for: [id number] Lab Results Component Value Date TSH 2.356 11/26/2020 Radiology reportsas per the Radiologist Radiology: CT abdomen pelvis w contrast Result Date: 10/08/2023 [facility] 1965 [id number] Exam Date/Time: 10/08/2023 09:36 Procedure: CT ABDOMEN [...] Acquired absence of other toe(s), unspecified side ([facility]) Anxiety disorder Bipolar 1 disorder ([facility]) Blood circulation, collateral Cellulitis chronic L lower leg COVID 12/08/2021 Depression Diabetes mellitus ([facility]) Type II, on insulin Disease of blood and blood forming organ Endometrial carcinoma ([facility]) 11/25/2020 Endometrial hyperplasia Foot ulcer ([facility]) Hx of blood clots RLE prior to amputation Hyperlipidemia Hypertension Lymphedema 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, RLE Morbidly obese ([facility]) Muscle weakness Osteomyelitis (HCC) Osteomyelitis (HCC) 2019 RLE Other lack of coordination Other specified soft tissue disorders Other symbolic dysfunctions Schizophrenia ([facility]) Sleep apnea no CPAP Venous insufficiency Past Surgical History: Past Surgical History: Procedure Laterality Date ABCESS DRAINAGE Right 09/09/2018 FOOT; ACH COLONOSCOPY 09/19/[address] Hyde DILATION AND CURETTAGE OF UTERUS 05/18/2019 HYSTEROSCOPY 12/23/2021 LEG AMPUTATION THROUGH KNEE Right 06/16/2019 UPPER GASTROINTESTINAL ENDOSCOPY N/A 06/29/2023 Dr Sergio Sibley at [facility]; no specimens WISDOM TOOTH EXTRACTION Allergy(ies): No [...] state/prognosis on the date of this note. [facility] Respiratory Care Department Progress Note Comment or [...] Tray (Disposables); 5 carb choices (75 gm/meal) @[id number]@ 24HR INTAKE/OUTPUT: Intake/Output Summary (Last 24 hours) [...] side (HCC) Anxiety disorder Bipolar 1 disorder ([facility]) Blood circulation, collateral Cellulitis chronic L lower leg COVID 12/08/2021 Depression Diabetes mellitus ([facility]) Type II, on insulin Disease of blood and blood forming organ Endometrial carcinoma ([facility]) 11/25/2020 Endometrial hyperplasia Foot ulcer ([facility]) Hx of blood clots RLE prior to amputation Hyperlipidemia Hypertension Lymphedema 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, RLE Morbidly obese ([facility]) Muscle weakness Osteomyelitis (HCC) Osteomyelitis ([facility]) 2019 RLE Other lack of coordination Other specified soft tissue disorders Other symbolic dysfunctions Schizophrenia ([facility]) Sleep apnea no CPAP Venous insufficiency LABS: CBC: Recent Labs 10/07/2362610/08/23 030 WBC 13.3* 10.1 RBC 4.75 3.72 HGB 13.2 10.6* HCT 41.5 31.6 MCV 87.4 84.9 RDW 14.2 15.7* PLT 438 339 BMP: Recent Labs 10/07/23 0610/08/23 0307 10/09/23 0903 NA 138 130* 130* K 4.4 4.2 4.5 CL 100 100 98 CO2 27 22 23 BUN 20 34 23 CREATININE 0.74 1.09 0.76 GLUCOSE 120* 288* 344* CALCIUM 8.8 8.1* 8.7 ANIONGAP 11 8 9 LIVER PROFILE: Recent Labs 10/07/23 0627 10/08/23 0307 AST 36 33 ALT 46 42 [...] : Mayda Olmstead MD 10/09/2023 [facility] Inpatient Medical Services/[facility] PAGER: [phone] Vancomycin therapy has been discontinued by Skylar Larkin PA-C on 10/09/23. Thank you for the consult. Pharmacy signing off for vancomycin dosing. Thais Esqueda RPh, PharmD Date: 10/09/23 Time: 11:39 AM Department of Internal Medicine Division of Endocrinology, Diabetes, & Metabolism Endocrinology Note Patient Name: Will Jacinto : 1965 AGE: 57 y.o. Room/Bed: [facility] A Admission Date: 10/07/2023 Visit Date: 10/09/2023 Reason for Endocrine Consult: U-500 dosing, hypoglycemia Provider/Team Requesting Consult: [facility] PCP: Jared Guzman Outpt Diesel Service Journeyman: Dr. Lee ASSESSMENT: Type 2 diabetes with [...] and he presented to the hospital from intermediate for hypoglycemia/unresponsiveness. Patient had received 260 units [...] before lunch/285 units before dinner Lactobacillus Acid-Pectin (Acidophilus/Phoenicia Pectin) tablet 1 tablet, Oral, 2 times [...] found for: CHOLHDLRATIO No results found for: [id number] Lab Results Component Value Date TSH 2.356 [...] 10/07/2023 Patient Name: WILL JACINTO : 1965 [facility]#: [id number] Exam Date/Time: 10/07/2023 07:29 Procedure: CT HEAD [...] side (HCC) Anxiety disorder Bipolar 1 disorder ([facility]) Blood circulation, collateral Cellulitis chronic L lower leg COVID 12/08/2021 Depression Diabetes mellitus ([facility]) Type II, on insulin Disease of blood and blood forming organ Endometrial carcinoma ([facility]) 11/25/2020 Endometrial hyperplasia Foot ulcer ([facility]) Hx of blood clots RLE prior to amputation Hyperlipidemia Hypertension Lymphedema 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, RLE Morbidly obese (HCC) Muscle weakness Osteomyelitis (HCC) Osteomyelitis (HCC) 2019 RLE Other lack of coordination Other specified soft tissue disorders Other symbolic dysfunctions Schizophrenia ([facility]) Sleep apnea no CPAP Venous insufficiency Past Surgical History: Past Surgical History: Procedure Laterality Date ABCESS DRAINAGE Right 09/09/2018 FOOT; ACH COLONOSCOPY 09/19/[address] Hyde DILATION AND CURETTAGE OF UTERUS 05/18/2019 HYSTEROSCOPY 12/23/2021 LEG AMPUTATION THROUGH KNEE Right 06/16/2019 UPPER GASTROINTESTINAL ENDOSCOPY N/A 06/29/2023 Dr Sergio Sibley at [facility]; no specimens WISDOM TOOTH EXTRACTION Allergy(ies): No [...] Vancomycin Dosing Service Progress Note Date: 10/09/23 Room:[facility] A Patient Name: Will Jacinto Allergies: Patient [...] Entered doses and random Vancomycin level into [facility] Program. Current dosing regimen is Vancomycin 1500 milligrams Q 12 hours has predicted AUC of 526 mg/L*hr. Continue current dosing regimen. Will obtain random Vancomycin level with morning labs on or before 10/16/23. Will continue to follow renal function closely. Please page/call with questions. Date: 10/09/23 Time: 7:20 AM Name: Thais Esqueda RPh, PharmD Phone: [phone] Images from the original note were not included. Hospitalist Progress Note Subjective: Admit Date: 10/07/2023 PCP: Jared Guzman Room#: [id number] A Interval History: PT reports nausea, vomiting improved, no diarrhea, abd pain improved since admission, LLE erythema has been present for many years, no pain in his LLE. no other complaints. Adult diet Full liquid; 5 carb choices (75 gm/meal) @[id number]@ 24HR INTAKE/OUTPUT: Intake/Output Summary (Last 24 hours) [...] side (HCC) Anxiety disorder Bipolar 1 disorder ([facility]) Blood circulation, collateral Cellulitis chronic L lower leg COVID 12/08/2021 Depression Diabetes mellitus ([facility]) Type II, on insulin Disease of blood and blood forming organ Endometrial carcinoma ([facility]) 11/25/2020 Endometrial hyperplasia Foot ulcer ([facility]) Hx of blood clots RLE prior to amputation Hyperlipidemia Hypertension Lymphedema 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, RLE Morbidly obese ([facility]) Muscle weakness Osteomyelitis (HCC) Osteomyelitis ([facility]) 2019 RLE Other lack of coordination Other specified soft tissue disorders Other symbolic dysfunctions Schizophrenia ([facility]) Sleep apnea no CPAP Venous insufficiency LABS: CBC: Recent Labs 10/07/23 0627 10/08/23 030 WBC 13.3* 10.1 RBC 4.75 3.72 HGB 13.2 10.6* HCT 41.5 31.6 MCV 87.4 84.9 RDW 14.2 15.7* PLT 438 339 BMP: Recent Labs 10/07/23 0627 10/08/23 030 NA 138 130* K 4.4 4.2 CL 100 100 CO2 27 22 BUN 20 34 CREATININE 0.74 1.09 GLUCOSE 120* 288* CALCIUM 8.8 8.1* ANIONGAP 11 8 LIVER PROFILE: Recent Labs 10/07/23 0627 10/08/23 0307 AST 36 33 ALT 46 42 [...] 10/08/2023 Division of Hospitalist Medicine Inpatient Medical Services/[facility] PAGER: [phone] Pharmacy Managed Vancomycin Dosing Service Consult Note [...] AM Ezio Orr PharmD Available via Secure Chat/[facility] documented in this encounter [facility] 10-16-2023 Nurse Note Report called to [facility]. Nursing aware of transport time [...] oral glucose gel. Blood sugar rechecked at 0229 was 49. D5W started per protocol. Lab [...] for admit orders. documented in this encounter [facility] 10-16-2023 Hospital course Narrative Images from the [...] Gram-negative bacteria Sepsis without acute organ dysfunction ([facility]) Diabetic gastroparesis associated with type 2 diabetes mellitus ([facility]) ([facility]) Type 2 diabetes mellitus with hyperglycemia, with long-term current use of insulin ([facility]) Class 3 severe obesity due to excess calories with serious comorbidity and body mass index (BMI) of 60.0 to 69.9 in adult ([facility]) HOSPITAL COURSE: Patient admitted 10/07/2023 for hypoglycemia 2/2 insulin use with poor PO intake, hypothermia, ?sepsis. 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 Initially presented from [facility] with hypoglycemia and unresponsiveness, POC glucose [...] diseases RECOMMENDED NEXT STEPS: Ertapenem last day 12, then remove PICC Recheck BMP in 3-days [...] 325 MG tablet Commonly known as: Tylenol Acidophilus/Phoenicia Pectin tablet ARIPiprazole 10 MG tablet Commonly [...] DISPOSITION: Skilled Facility FACILITY/HOME CARE AGENCY NAME: [facility] DISCHARGE TIME: 40 minutes SIGNED: Marcio Armando MD 10/16/2023, 5:31 PM See today's progress note for physical exam. documented in this encounter [facility] 10-16-2023 Miscellaneous Notes Discharge med list transmitted to [facility] via [employer] per TCC request. Discharge order is in place, but contingent upon what pt's blood sugar will be at dinner. Tasked YARD DEMURRAGE CLERK to send discharge paperwork to [facility]. Spoke with BEE Herron at the facility to inform her of probable discharge at 6:30. TCC made SENIOR ENERGY ANALYST aware the DC may be cancelled depending on his blood sugars tonight with dinner. SENIOR ENERGY ANALYST verbalized understanding. Pt also made aware of probable dc back to [facility] tonight. TCC to follow and assist as needed. MAR and updated notes placed to [facility] via Careport per TCC request. Await review and response regarding ability to accept. TCC notified. TCC informed that pt can go back to [facility] tonight as long as blood sugar is acceptable after dinner. Was asked to arrange transportation, under the assumption that pt will be discharged. Transportation set for 6:30 with [facility]. Transportation form on chart. Pt is LTC LOC and does not need 7000 or auth. Tasked YARD DEMURRAGE CLERK to send MAR to facility. Once the [...] Glucose 528. Endocrine continues to follow. DCP: [facility] when clinically stable. TCC to [...] 8 GMLOS: 5.1 [facility] TCC request. Images from the original note were not included. Care Management Progress Note Pt remains on 4W. Positive blood cultures. PICC. Invanz Q24h until 10/21. Order in Media. Endocrine following, adjusting insulin improved to 250 this morning. DCP: [facility] when clinically stable. TCC to follow. [...] with further issues [facility] to [facility] per TCC request. Images from the original note were not included. Care Management Progress Note Pt remains on 4W. Positive blood cultures. PICC. Invanz Q24h until 10/21. Order in Media. Na 129. Endocrine following, adjusting insulin. [facility]. TCC to follow. Discharge Milestones and Delays [...] Endo, ID following. DC plan: return to [facility] when clinically stable. Bed hold, [...] Infectious Disease following. Plan is return to [facility] when medically stable. Bed hold [...] 4 GMLOS: 4.1 Return referral placed to [facility] via [facility] per [facility] request. Await review and response regarding ability to accept. TCC notified. Care Managment Initial Assessment Date: 10/08/2023 Patient Name: Will Jacinto : 1965 Patient Information Source of Information: Patient Cognition/Language: Impaired Permission given to speak with patient indirect sales representative/caregiver as indicated: Confirmation of Payer with patient/family: Payer Name: [facility] : No Confirmation of Primary Care Physician: Primary Caregiver: If assistance needed, confirmed caregiver ready, willing and able to care for patient at discharge: Yes Confirmed with: Living Arrangements Current Residence: Number of Floors Number of Entry Steps: Bed/Bath Levels: Facility: Long-Term/[facility]idental Care Facility Name: [facility] Plan to Return: Yes Lives [...] Plan Patient expects to be discharged to: [facility]. Discharge Planning Actions: Patient's Choice Rights and [employer] and Collaborative Relationships Disclosed as Indicated for Post-Acute Care: Interdisciplinary Team Engagement: Social Work Referral for: Additional Information: [place] per patient. Lives at [facility]. Plan is return at discharge. Referral in [facility]. Demetria Robertson RN Problem: Safety - [...] include monitor bglucose. documented in this encounter [facility] 10-13-2023 Hospital Discharg e instructions Gricelda Harding [...] 06/29/2023 Dr Sergio Sibley at [facility]; no specimens WISDOM TOOTH EXTRACTION Immunization History: [...] disease due to type 2 diabetes mellitus ([facility]) Class 3 severe obesity due to excess calories with serious comorbidity and body mass index (BMI) of 50.0 to 59.9 in adult ([facility]) Type 2 diabetes mellitus with hyperglycemia, with long-term current use of insulin ([facility]) Hyperglycemia Post-menopausal bleeding Morbid obesity ([facility]) Left leg cellulitis Diabetic foot infection S/P AKA (above knee amputation) unilateral, right ([facility]) Class 3 severe obesity due to excess calories with serious comorbidity and body mass index (BMI) of 60.0 to 69.9 in adult ([facility]) Isolation/Infection: Contact MRSA, MDRO Nurse [...] assistance Toileting Total assistance Feeding Minimal assistance Scaffold Worker Minimal assistance Med Delivery yes Wound Care [...] Score: @READMISSIONRISKDETAILS@ Discharging to Facility/ Agency Name: [facility] Address: [address] [place] [address] Dialysis Facility (if applicable) Name: Address: Dialysis Schedule: Phone: Fax: [facility] Marker signature: ICIAN SECTION Prognosis: good Condition at [...] the diagnosis listed and that he requires alf facility for greater than 30 days. Update Admission H&P: No change in H&P PHYSICIAN SIGNATURE: documented in this encounter [facility] 10-12-2023 Procedure note Associated Ord er(s): PICC [...] lumen Catheter size: 5 Fr Lot #: [id number] Trimmed at (cm): 41 Inserted at (cm): 41 Ultrasound guidance: Yes Post-procedure: Post-procedure: Antimicrobial dressing applied and securement device Description/Findings: Flushes easily and blood returned Estimated blood loss: < 5 mL Specify complication(s): No apparent complications Follow-up chest x-ray: Ordered General Comments: Infiltrated PIV site right AC, tender red IV right wrist documented in this encounter [facility] 10-09-2023 Consult note Associated Order (s): IP CONSULT TO INFECTIOUS DISEASES Images from the original note were not included. [facility] Medical [facility] - Infectious Diseases Advanced Practice Provider Consult [...] was found unresponsive and diaphoretic in the button reclaimer; POC glucose 36. He was given 2 [...] Acquired absence of other toe(s), unspecified side ([facility]) Anxiety disorder Bipolar 1 disorder ([facility]) Blood circulation, collateral Cellulitis chronic L lower leg COVID 12/08/2021 Depression Diabetes mellitus ([facility]) Type II, on insulin Disease of blood and blood forming organ Endometrial carcinoma ([facility]) 11/25/2020 Endometrial hyperplasia Foot ulcer ([facility]) Hx of blood clots RLE prior to amputation Hyperlipidemia Hypertension Lymphedema 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, RLE Morbidly obese ([facility]) Muscle weakness Osteomyelitis ([facility]) Osteomyelitis ([facility]) 2019 RLE Other lack of coordination Other specified soft tissue disorders Other symbolic dysfunctions Schizophrenia ([facility]) Sleep apnea no CPAP Venous insufficiency Past Surgical History: Past Surgical History: Procedure Laterality Date ABCESS DRAINAGE Right 09/09/2018 FOOT; ACH COLONOSCOPY 09/19/[address] Hyde DILATION AND CURETTAGE OF UTERUS 05/18/2019 HYSTEROSCOPY 12/23/2021 LEG AMPUTATION THROUGH KNEE Right 06/16/2019 UPPER GASTROINTESTINAL ENDOSCOPY N/A 06/29/2023 Dr Sergio Sibley at [facility]; no specimens WISDOM TOOTH EXTRACTION Current Medications: Current Facility-Administered Medications Medication Dose Route Frequency Provider Last Rate Last Admin acetaminophen (Tylenol) tablet 650 mg 650 mg Oral q4h PRN JEREMY Liao CNP 650 mg at 10/08/23 0554 ARIPiprazole (Abilify) tablet 10 mg 10 mg Oral q24h Rachael Robertson APRN - YARD ATTENDANT 10 mg at 10/08/23 1639 aspirin EC tablet 81 mg 81 mg Oral Daily JEREMY Liao CNP 81 mg at 10/09/23 0855 atorvastatin (Lipitor) tablet 10 mg 10 mg Oral Nightly Rachael Robertson APRN - KRANTHI 10 mg at 10/08/23 2308 clotrimazole (Lotrimin) 1 % cream Topical BID JEREMY Liao CNP Given at 10/09/23 0852 dextrose 5 % infusion 100 mL/hr IntraVENous PRN JEREMY Liao CNP dextrose 50 % solution 12.5 g 12.5 g IntraVENous PRN JEREMY Liao CNP dilTIAZem CD (Cardizem CD) 24 hr capsule 180 mg 180 mg Oral Daily JEREMY Liao CNP 180 mg at 10/09/23 0855 enoxaparin (Lovenox) syringe 30 mg 30 mg SubCUTAneous 2 times per day JEREMY Liao CNP 30 mg at 10/09/23 0856 FLUoxetine (PROzac) capsule 40 mg 40 mg Oral Daily JEREMY Liao CNP 40 mg at 10/09/23 0855 gabapentin (Neurontin) capsule 100 mg 100 mg Oral BID JEREMY Liao CNP 100 mg at 10/09/23 0856 glucagon (human [...] tablet 40 mg 40 mg Oral q24h JEREMY Liao CNP 40 mg at 10/08/23 1639 megestrol (Megace) tablet 20 mg 20 mg Oral BID JEREMY Liao CNP 20 mg at 10/09/23 0855 melatonin tablet 10 mg 10 mg Oral Nightly JEREMY Liao CNP 10 mg at 10/08/23 2308 metoclopramide (Reglan) tablet 10 mg 10 mg Oral 4x daily JEREMY Liao CNP 10 mg at 10/09/23 0855 metoprolol tartrate (Lopressor) tablet 25 mg 25 mg Oral BID Rachael Robertson APRN - KRANTHI 25 mg at 10/09/23 0855 ondansetron (Zofran) tablet 4 mg 4 mg Oral q6h PRN JEREMY Liao CNP 4 mg at 10/08/232043 pantoprazole (ProtoNix) EC tablet 40 mg 40 mg Oral qAM AC Rachael Robertson APRN - YARD ATTENDANT 40 mg at 10/09/23 0654 piperacillin-tazobactam (Zosyn) IVPB 3,375 mg 3,375 mg IntraVENous q8h Rachael Robertson APRN - YARD ATTENDANT Stopped at 10/09/23 0645 polyethylene glycol (PEG) 3350 (Miralax) packet 17 g 17 g Oral Daily PRN Rachael Robertson APRN - YARD ATTENDANT polyethylene glycol (PEG) 3350 (Miralax) packet 17 g 17 g Oral Daily Rachael Robertson APRN - YARD ATTENDANT 17 g at 10/08/23 1042 vancomycin (Vancocin) 1500 mg in NS 250 mL IVPB (compounded premix) 1,500 mg IntraVENous q12h Rachael Robertson APRN - YARD ATTENDANT 125 mL/hr at 10/09/23 0656 1,500 mg [...] Jacinto : 1965 AGE: 57 y.o. Room/Bed: [facility] A Admission Date: 10/07/2023 Visit Date: 10/08/2023 Reason for Endocrine Consult: U-500 dosing, hypoglycemia Provider/Team Requesting Consult: YUNIER PCP: Jared Guzman Outpt Diesel Service Journeyman: Dr. Lee ASSESSMENT: Type 2 diabetes with [...] and he presented to the hospital from intermediate for hypoglycemia/unresponsiveness. Per notes patient has had [...] a blood glucose of 36 in the intermediate. Patient had received 260 units of U-500 [...] before lunch/285 units before dinner Lactobacillus Acid-Pectin (Acidophilus/Phoenicia Pectin) tablet 1 tablet, Oral, 2 times [...] found for: CHOLHDLRATIO No results found for: [id number] Lab Results Component Value Date TSH 2.356 [...] [facility] 1965 [id number] Exam Date/Time: 10/07/2023 07:31 Procedure: XR CHEST [...] [facility] 1965 [id number] Exam Date/Time: 10/07/2023 07:29 Procedure: CT HEAD [...] lower leg COVID 12/08/2021 Depression Diabetes mellitus ([facility]) Type II, on insulin Disease [...] 06/29/2023 Dr Sergio Sibley at [facility]; no specimens WISDOM TOOTH EXTRACTION Allergy(ies): No [...] Date: 10/07/23 Consulted By: Rachael Robertson CNP Room:[facility] A Patient Name: Will Jacinto Allergies: Patient [...] via Secure Chat documented in this encounter [facility] 10-07-2023 History and physical note Images from [...] who presents to the emergency department from [facility] for hypoglycemia/unresponsiveness. Staff nurse at facility [...] intake for dinner at 5p (?some soup). Enyct-kq-zkok glucose last night was 116 and he was given 3 glasses of apple juice prior to bed. Found unresponsive and diaphoretic at 0445 this a.m. Njvqj-wf-aupu glucose 36 at that time. Given 2 doses of glucagon which improved his xljqw-nm-apem glucose to 61. Glucose was 90 upon [...] Acquired absence of other toe(s), unspecified side ([facility]) Anxiety disorder Bipolar 1 disorder ([facility]) Blood circulation, collateral Cellulitis chronic L lower leg COVID 12/08/2021 Depression Diabetes mellitus ([facility]) Type II, on insulin Disease of blood and blood forming organ Endometrial carcinoma ([facility]) 11/25/2020 Endometrial hyperplasia Foot ulcer ([facility]) Hx of blood clots RLE prior to amputation Hyperlipidemia Hypertension Lymphedema 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, RLE Morbidly obese ([facility]) Muscle weakness Osteomyelitis ([facility]) Osteomyelitis ([facility]) 2019 RLE Other lack of coordination Other specified soft tissue disorders Other symbolic dysfunctions Schizophrenia ([facility]) Sleep apnea no CPAP Venous insufficiency Past Surgical History: Past Surgical History: Procedure Laterality Date ABCESS DRAINAGE Right 09/09/2018 FOOT; ACH COLONOSCOPY 09/19/[address] Hyde DILATION AND CURETTAGE OF UTERUS 05/18/2019 HYSTEROSCOPY 12/23/2021 LEG AMPUTATION THROUGH KNEE Right 06/16/2019 UPPER GASTROINTESTINAL ENDOSCOPY N/A 06/29/2023 Dr Sergio Sibley at [facility]; no specimens WISDOM TOOTH EXTRACTION Social History: [...] before lunch/285 units before dinner Lactobacillus Acid-Pectin (Acidophilus/Phoenicia Pectin) tablet Take 1 tablet by mouth [...] Jovana Quesada Relation: Relative Secondary Emergency Contact: TristianCarola Mobile Relation: Other Rachael Robertson APRN - [facility] Division of Hospitalist Medicine Inpatient Medical Services/[facility] Associated attestation - Carly Nino MD - 10/08/2023 6:08 PM EST I have reviewed the case with the PA/UTILITY LINEMAN. I agree with the current plan of [...] patient. A full chart review was performed. Rounding Hospitalist documented in this encounter [facility] 10-07-2023 Emergency department Note Phys[facility] ambulance arrived for transport. Hand off report given to medics. Breonna Palmer RN 10/07/[address] [facility] 4W. Hand off report given to PASTORA Martínez. Breonna Palmer RN 10/07/23 1444 Patient given orange juice. Breonna Palmer RN 10/07/23 1423 Phoned PASTORA Ochoa at [facility] and gave update that patient is to be admitted to [facility] and is currently in stable condition. RN [...] this time. Breonna Palmer RN 10/07/23 0952 Fyffe warmer removed from patient. Oral temp 97.5 F. Physician informed. Breonna Palmer RN 10/07/23922 Return call from ICU, Dr Tinajero. Diane [...] who presents to the emergency department from [facility] for hypoglycemia/unresponsiveness. Spoke to Juliane, nurse taking care of him overnight, who reports he was last seen well at 0400 this morning when he asked nursing admin to turn on fan because he felt [...] intake for dinner at 5p (?some soup). Zotez-ym-goua glucose last night was 116 and he was given 3 glasses of apple juice prior to bed. Found unresponsive and diaphoretic at 0445. Ackkq-ep-hcvx glucose 36 at that time. Given 2 doses of glucagon which improved his oskow-lt-fxmy glucose to 61. Glucose was 90 upon EMS arrival. EMS gave nothing in transport. Repeat wexle-sj-wpuw glucose 68 here. Juliane reports that mentation [...] Acquired absence of other toe(s), unspecified side ([facility]) Anxiety disorder Bipolar 1 disorder ([facility]) Blood circulation, collateral Cellulitis chronic L lower leg COVID 12/08/2021 Depression Diabetes mellitus ([facility]) Type II, on insulin Disease of blood and blood forming organ Endometrial carcinoma ([facility]) 11/25/2020 Endometrial hyperplasia Foot ulcer ([facility]) Hx of blood clots RLE prior to amputation Hyperlipidemia Hypertension Lymphedema 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, RLE Morbidly obese ([facility]) Muscle weakness Osteomyelitis ([facility]) Osteomyelitis ([facility]) 2019 RLE Other lack of coordination Other specified soft tissue disorders Other symbolic dysfunctions Schizophrenia ([facility]) Sleep apnea no CPAP Venous insufficiency SURGICAL HISTORY Past Surgical History: Procedure Laterality Date ABCESS DRAINAGE Right 09/09/2018 FOOT; ACH COLONOSCOPY 09/19/[address] Hyde DILATION AND CURETTAGE OF UTERUS 05/18/2019 HYSTEROSCOPY 12/23/2021 LEG AMPUTATION THROUGH KNEE Right 06/16/2019 UPPER GASTROINTESTINAL ENDOSCOPY N/A 06/29/2023 Dr Sergio Sibley at [facility]; no specimens WISDOM TOOTH EXTRACTION CURRENT MEDICATIONS [...] 68 (*) Narrative: Performed by: Nati Felix [facility], [address] [place] [address] CLIA ID: [id number] LACTIC ACID WITH REFLEX - Normal LACTIC ACID 1.2 POCT GLUCOSE METER UNSOLICITED RESULTS - Normal Glucose 100 Narrative: Performed by: [facility], [address] [place], [place] [id number] CLIA ID: [id number] BLOOD CULTURE URINE CULTURE RESPIRATORY PATHOGENS PANEL BY PCR BLOOD CULTURE COMPLETE URINALYSIS WITH REFLEX TO CULTURE Narrative: The following orders were created for panel order Urinalysis Complete with reflex to Culture. Procedure Abnormality Status --------- ------ Complete Urinalysis[[id number]] Please view results for these tests on [...] who presents to the emergency department from [facility] for hypoglycemia/unresponsiveness. Spoke to Juliane, nurse taking care of him overnight, who reports he was last seen well at 0400 this morning when he asked nursing admin to turn on fan because he felt warm. Entirety of HPI obtained from transporting EMS staff and MS staff due to patient unresponsiveness. Juliane reports [...] intake for dinner at 5p (?some soup). Arsbc-lf-zjlp glucose last night was 116 and he was given 3 glasses of apple juice prior to bed. Found unresponsive and diaphoretic at 0445. Zyyds-go-dbpa glucose 36 at that time. Given 2 doses of glucagon which improved his xqnfa-jd-cmja glucose to 61. Glucose was 90 upon EMS arrival. EMS gave nothing in transport. Repeat bgult-gq-xqdx glucose 68 here. Juliane reports that mentation [...] necessitating ultrasound-guided IV line by myself. Repeat cxflb-nu-cbaz glucose upon obtaining IV line 100. Amp [...] nontender on repeat evaluation. Disposition changed to [facility] telemetry. Accepted by Dr. Spring [...] Jacinto, age 57, came to ED6 by [facility] for a chief complaint of hypoglycemia. [facility] stated intermediate last seen him Aox3 at around 0400. nurse aide evaluator went in to check on pt and pt was unresponsive with a blood sugar of 36. Nurses at intermediate gave him 2 glucagon IM injections and pt's blood sugar came up to 60. EMS reported a blood sugar of 90. On assessment, pt's rectal temp was 91.4F. Blood sugar was 63. Bear hugger applied. Physician put in 20G IV using the ultrasound. Amp of Dextrose given and liter of NS warmed infusing. monitoring specialist applied. Vitals obtained. documented in this encounter [facility] 09-20-2023 Telephone encounter Note Please keep doses the same thank you [facility] Work Phone: 09-20-2023 Miscellaneous Notes Please keep doses the same thank you Images from the original note were not included. Patient BGL documented in this encounter [facility] 09-20-2023 Telephone encounter Note Images from the original note were not included. Patient BGL [facility] 08-31-2023 Telephone encounter Note Faxed response to [facility]. Thank you! [facility] 08-31-2023 Miscellaneous Notes [facility]! Please keep doses the same thank you Images from the original note were not included. Patient's BGL documented in this encounter [facility] 08-30-2023 Telephone encounter Note Please keep doses the same thank you [facility] Work Phone: 08-30-2023 Telephone encounter Note Images from the original note were not included. Patient's BGL [facility] 08-19-2023 Note Formatting of this n ote might be different from the original. RN called asking me to sign the med rec so the patient can be transported to [facility]< Signed the med reconciliation form [facility] [employer] Phone: 08-19-2023 Note Formatting of this n ote might be different from the original. RN called asking me to sign the med rec so the patient can be transported to [facility]< Signed the med reconciliation form [facility] [employer] Phone: 08-19-2023 Miscellaneous Notes RN called asking me to sign the med rec so the patient can be transported to [facility]< Signed the med reconciliation form Spoke with patient. Agreeable to returning back to [facility]. Updated facility [facility] discharge today and transport time of 430pm. YARD DEMURRAGE CLERK tasked to send discharge packet to facility. . Plan for patient to discharge today. Discharge order has been placed. Transportation arranged through [facility] by cot set for 4:30 pm. Notified RN and covering TCC of this. Will update patient at bedside. SW remains available if any other needs or concerns arise. Discharge med list transmitted to return back to [facility] per TCC request. Referral placed to return back to [facility] via [facility] per TCC request. Await review and response regarding ability to accept. TCC notified. Inpatient status from [facility] with abdominal pain. Admitted to [facility]. ID consulted as patient was in [...] iv x 1 throughout the night.Did task YARD DEMURRAGE CLERK to send referral to [facility]. Discharge plan is to return to [facility] when medically stable... Problem: Pain Goal: My pain/discomfort is manageable Outcome: Progressing met Ice therapy offer/repositioning Problem: Safety Goal: Patient will be injury free during hospitalization Outcome: Progressing met Educate on using call light/ frequent rounding documented in this encounter [facility] 08-19-2023 History of Presen t illness Narrative Report called to Ana at [facility]. Department of Internal Medicine Division of Endocrinology, Diabetes, & Metabolism Endocrinology Note Patient Name: Will Jacinto : 1965 AGE: 57 y.o. Room[facility]Bed: [facility] A Admission Date: 08/17/2023 Visit Date: 08/19/2023 Reason for Endocrine Consult: DM2 Uncontrolled Provider/Team Requesting Consult: Dr. Hill PCP: Jared Guzman Outpt Diesel Service Journeyman: Yes [facility] [place] Last seen 02/09/2023, Next appointment 10/27/2023 ASSESSMENT: Type 2 diabetes mellitus with hyperglycemia with detention insulin use Leukocytosis Bipolar disorder Dm2 severe [...] units 3 times daily with meals Follow-up: [facility] endocrinology SUBJECTIVE/HPI: CHIEF COMPLAINT: Chief Complaint Patient [...] before lunch/285 units before dinner Lactobacillus Acid-Pectin (Acidophilus/Phoenicia Pectin) tablet 1 tablet, Oral, 2 times [...] found for: CHOLHDLRATIO No results found for: [id number] Lab Results Component Value Date TSH 2.356 [...] [facility] 1965 [id number] Exam Date/Time: 08/17/2023 15:08 Procedure: CT ABDOMEN [...] 06/29/2023 Dr Sergio Sibley at [facility]; no specimens WISDOM TOOTH EXTRACTION Allergy(ies): No [...] not included. [facility] - Infectious Diseases Attending Progress [...] 188/106 -- -- -- -- -- 08/18/23 194 (!) 176/87 -- -- 90 -- -- [...] edema. Left lower leg: No edema. Comments: Jamilah Nava with chronic inflammatory changes, tinea pedis. Skin: [...] Labs 08/17/23 1336 08/17/23 1758 08/18/230 08/19/23 043 NA 132* -- 130* 130* K 4.8 [...] -- -- -- Recent Labs 08/17/23 1336 08/18/2333908/19/23 0433 WBC 14.7* 13.2* 8.6 HGB 12.5 [...] be of moderate complexity. Art Reddy MD, [facility], [facility] Nutrition rescreen complete. Pt assigned a level one for nutrition care. Images from the original note were not included. PHYSICAL THERAPY [facility] Name/MRN: Maria Luisa Jacinto ([id number]) Date: 08/18/2023 PT evaluation orders received and chart review completed. 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 No acute PT needs identified. Rec return to [facility] with no PT. Mai Argueta PT Images from the original note were not included. Occupational Therapy OCCUPATIONAL THERAPY [facility] Name/MRN: Maria Luisa Jacinto ([id number]) Date: 08/18/2023 Therapy eval and treat orders [...] Scooter Wyatt OT documented in this encounter [facility] 08-19-2023 Note Formatting of this n ote might be different from the original. Spoke with patient. Agreeable to returning back to [facility]. Updated facility via [facility] of discharge today and transport time of 430pm. YARD DEMURRAGE CLERK tasked to send discharge packet to facility. . [facility] 08-19-2023 Note Formatting of this n ote might be different from the original. Spoke with patient. Agreeable to returning back to [facility]. Updated facility via [facility] of discharge today and transport time of 430pm. YARD DEMURRAGE CLERK tasked to send discharge packet to facility. . [facility] 08-19-2023 Note Formatting of this n ote might be different from the original. Plan for patient to discharge today. Discharge order has been placed. Transportation arranged through [facility] by cot set for 4:30 pm. Notified RN and covering TCC of this. Will update patient at bedside. SW remains available if any other needs or concerns arise. [facility] 08-19-2023 Note Formatting of this n ote might be different from the original. Plan for patient to discharge today. Discharge order has been placed. Transportation arranged through [facility] by cot set for 4:30 pm. Notified RN and covering TCC of this. Will update patient at bedside. SW remains available if any other needs or concerns arise. [facility] 08-19-2023 Note Formatting of this n ote might be different from the original. Discharge med list transmitted to return back to [facility] via [facility] per TCC request. [facility] 08-19-2023 Note Formatting of this n ote might be different from the original. Discharge med list transmitted to return back to [facility] via [facility] per TCC request. [facility] 08-19-2023 Hospital course Narrative Discharge Summary Will [...] August 20, 2023 CONTINUE taking these medications Acidophilus/Phoenicia Pectin tablet ARIPiprazole 10 MG tablet Commonly [...] Complexity: follow up within 7-14 calendar days (24533) [] Severe Complexity: follow up within 7 calendar days (61225) FOLLOW UP TESTING, PENDING RESULTS OR REFERRALS AT TRANSITIONAL CARE VISIT: [] Yes [] No PENDING STUDIES: none DISPOSITION: Skilled Facility FACILITY/HOME CARE AGENCY NAME: Follow up with Yohana at the [facility] INSTRUCTIONS TO MA/SW: Please call patient on [...] 08/19/2023, 10:09 AM documented in this encounter [facility] 08-19-2023 Note Formatting of this n ote might be different from the original. Referral placed to return back to [facility] via [facility] per TCC request. Await review and response regarding ability to accept. TCC notified. [facility] 08-19-2023 Note Formatting of this n ote might be different from the original. Referral placed to return back to [facility] via [facility] per TCC request. Await review and response regarding ability to accept. TCC notified. [facility] 08-19-2023 Hospital Discharg e instructions Kota Luque [...] 06/29/2023 Dr Sergio Sibley at [facility]; no specimens WISDOM TOOTH EXTRACTION Immunization History: [...] S/P AKA (above knee amputation) unilateral, right ([facility]) Class 3 severe obesity due to excess calories with serious comorbidity and body mass index (BMI) of 60.0 to 69.9 in adult ([facility]) Isolation/Infection: No active isolations No [...] Total assistance Toileting Total assistance Feeding 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 Independent Med Delivery yes Wound Care Documentation [...] that are sent with patient): {CHRISTY Patient Belongings:[id number]} RN SIGNATURE: MANAGEMENT/SOCIAL WORK SECTION Inpatient Status Date: Readmission Risk Assessment Score: @READMISSIONRISKDETAILS@ Discharging to Facility/ Agency Name: [facility] Address:[place] [address] Dialysis Facility (if applicable) Name: Address: Dialysis Schedule: Phone: Fax: [facility] Marker signature: ICIAN SECTION Prognosis: fair Condition at Discharge: stable Rehab Potential (if transferring to Rehab): fair Recommended Labs or Other Treatments After Discharge: Physician Certification: I certify the above information and transfer of Will Jacinto is necessary for the continuing treatment of the diagnosis listed and that he requires alf facility for greater than 30 days. Update Admission H&P: No change in H&P PHYSICIAN SIGNATURE: documented in this encounter [facility] 08-19-2023 Note Formatting of this n ote might be different from the original. Inpatient status from [facility] with abdominal pain. Admitted to [facility]. ID consulted as patient was in [...] iv x 1 throughout the night.Did task YARD DEMURRAGE CLERK to send referral to [facility]. Discharge plan is to return to [facility] when medically stable... [facility] 08-19-2023 Note Formatting of this n ote might be different from the original. Inpatient status from [facility] with abdominal pain. Admitted to [facility]. ID consulted as patient was in [...] iv x 1 throughout the night.Did task YARD DEMURRAGE CLERK to send referral to [facility]. Discharge plan is to return to [facility] when medically stable... [facility] 08-18-2023 Plan of care note Problem: Pain Goal: My pain/discomfort is manageable Outcome: Progressing met Ice therapy offer/repositioning Problem: Safety Goal: Patient will be injury free during hospitalization Outcome: Progressing met Educate on using call light/ frequent rounding [facility] 08-18-2023 Emergency department Note Endocrinology pagekristina, have tried to contact multiple times in regards to Insulin order w/o response. Flor Alonso RN 08/18/23 1214 [facility] 08-18-2023 Emergency department Note Endocrinology pagekristina, have [...] otherwise acutely negative except as in the [place]. 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) Acquired absence of other toe(s), unspecified side (HCC) Anxiety disorder Bipolar 1 disorder ([facility]) Blood circulation, collateral Cellulitis chronic L lower leg COVID 12/08/2021 Depression Diabetes mellitus ([facility]) Type II, on insulin Disease of blood and blood forming organ Endometrial carcinoma (HCC) 11/25/2020 Endometrial hyperplasia Foot ulcer ([facility]) Hx of blood clots RLE prior to amputation Hyperlipidemia Hypertension Lymphedema 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, RLE Morbidly obese ([facility]) Muscle weakness Osteomyelitis (HCC) Osteomyelitis (HCC) 2019 RLE Other lack of coordination Other specified soft tissue disorders Other symbolic dysfunctions Schizophrenia ([facility]) Sleep apnea no CPAP Venous insufficiency SURGICAL HISTORY Past Surgical History: Procedure Laterality Date ABCESS DRAINAGE Right 09/09/2018 FOOT; ACH COLONOSCOPY 09/19/[address] Hyde DILATION AND CURETTAGE OF UTERUS 05/18/2019 HYSTEROSCOPY 12/23/2021 LEG AMPUTATION THROUGH KNEE Right 06/16/2019 UPPER GASTROINTESTINAL ENDOSCOPY N/A 06/29/2023 Dr Sergio Sibley at [facility]; no specimens WISDOM TOOTH EXTRACTION CURRENT MEDICATIONS [...] Culture. Procedure Abnormality Status --------- ------ Complete Urinalysis[[id number]] Please view results for these tests on [...] medicine further management Brandon Leblanc DO 08/17/23 9685 Arrived via ems from [facility] ABD pain /10 x 1 week, previous dx of uti, [...] Mendes RN 08/17/232045 documented in this encounter [facility] 08-18-2023 Consult note Associated Order (s): IP CONSULT TO ENDOCRINOLOGY Department of Internal Medicine Division of Endocrinology, Diabetes, & Metabolism Endocrinology Note Patient Name: Will Jacinto : 1965 AGE: 57 y.o. Room/Bed: 06/15 Admission Date: 08/17/2023 Visit Date: 08/18/2023 Reason for Endocrine Consult: DM2 Uncontrolled Provider/Team Requesting Consult: Dr. Hill PCP: Jared Guzman Outpt Diesel Service Journeyman: Yes 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 Leukocytosis Bipolar disorder Dm2 severe [...] times daily with meals Outpt Follow Up-- [facility] endocrinology SUBJECTIVE/HPI: CHIEF COMPLAINT: Chief Complaint Patient [...] before lunch/285 units before dinner Lactobacillus Acid-Pectin (Acidophilus/Phoenicia Pectin) tablet 1 tablet, Oral, 2 times [...] found for: CHOLHDLRATIO No results found for: [id number] Lab Results Component Value Date TSH 2.356 [...] Acquired absence of other toe(s), unspecified side ([facility]) Anxiety disorder Bipolar 1 disorder ([facility]) Blood circulation, collateral Cellulitis chronic L lower leg COVID 12/08/2021 Depression Diabetes mellitus ([facility]) Type II, on insulin Disease of blood and blood forming organ Endometrial carcinoma ([facility]) 11/25/2020 Endometrial hyperplasia Foot ulcer ([facility]) Hx of blood clots RLE prior to amputation Hyperlipidemia Hypertension Lymphedema 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, RLE Morbidly obese ([facility]) Muscle weakness Osteomyelitis ([facility]) Osteomyelitis ([facility]) 2019 RLE Other lack of coordination Other specified soft tissue disorders Other symbolic dysfunctions Schizophrenia ([facility]) Sleep apnea no CPAP Venous insufficiency Past Surgical History: Past Surgical History: Procedure Laterality Date ABCESS DRAINAGE Right 09/09/2018 FOOT; ACH COLONOSCOPY 09/19/[address] Hyde DILATION AND CURETTAGE OF UTERUS 05/18/2019 HYSTEROSCOPY 12/23/2021 LEG AMPUTATION THROUGH KNEE Right 06/16/2019 UPPER GASTROINTESTINAL ENDOSCOPY N/A 06/29/2023 Dr Sergio Sibley at [facility]; no specimens WISDOM TOOTH EXTRACTION Allergy(ies): No [...] state/prognosis on the date of this note. [facility] 08-18-2023 Consult note Associated Order (s): IP CONSULT TO ENDOCRINOLOGY Department of Internal Medicine Division of Endocrinology, Diabetes, & Metabolism Endocrinology Note Patient Name: Will Jacinto : 1965 AGE: 57 y.o. Room/Bed: 06/15 Admission Date: 08/17/2023 Visit Date: 08/18/2023 Reason for Endocrine Consult: DM2 Uncontrolled Provider/Team Requesting Consult: Dr. Hill PCP: Jared Guzman Outpt Diesel Service Journeyman: Yes 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 Leukocytosis Bipolar disorder Dm2 severe [...] times daily with meals Outpt Follow Up-- [facility] endocrinology SUBJECTIVE/HPI: CHIEF COMPLAINT: Chief Complaint Patient [...] before lunch/285 units before dinner Lactobacillus Acid-Pectin (Acidophilus/Phoenicia Pectin) tablet 1 tablet, Oral, 2 times [...] found for: CHOLHDLRATIO No results found for: [id number] Lab Results Component Value Date TSH 2.356 [...] side (HCC) Anxiety disorder Bipolar 1 disorder ([facility]) Blood circulation, collateral Cellulitis chronic L lower leg COVID 12/08/2021 Depression Diabetes mellitus ([facility]) Type II, on insulin Disease of blood and blood forming organ Endometrial carcinoma ([facility]) 11/25/2020 Endometrial hyperplasia Foot ulcer ([facility]) Hx of blood clots RLE prior to amputation Hyperlipidemia Hypertension Lymphedema 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, RLE Morbidly obese ([facility]) Muscle weakness Osteomyelitis (HCC) Osteomyelitis (HCC) 2019 RLE Other lack of coordination Other specified soft tissue disorders Other symbolic dysfunctions Schizophrenia ([facility]) Sleep apnea no CPAP Venous insufficiency Past Surgical History: Past Surgical History: Procedure Laterality Date ABCESS DRAINAGE Right 09/09/2018 FOOT; ACH COLONOSCOPY 09/19/[address] Hyde DILATION AND CURETTAGE OF UTERUS 05/18/2019 HYSTEROSCOPY 12/23/2021 LEG AMPUTATION THROUGH KNEE Right 06/16/2019 UPPER GASTROINTESTINAL ENDOSCOPY N/A 06/29/2023 Dr Sergio Sibley at [facility]; no specimens WISDOM TOOTH EXTRACTION Allergy(ies): No [...] from the original note were not included. [facility] - Infectious Diseases Attending Consult Note Reason for Consult: Complicated UTI History of Present Illness: Patient is 57 year old admitted to [facility] with abdominal discomfort N/V. Patient was in [...] 06/29/2023 Dr Sergio Sibley at [facility]; no specimens WISDOM TOOTH EXTRACTION Current Medications: [...] tablet 10 mg 10 mg Oral Daily Anbil M Esterle, DO 10 mg at 08/18/23 0828 cefTRIAXone (Rocephin) 1,000 mg in sodium chloride 0.9 % 50 mL IVPB Mini-Bag Plus 1,000 mg IntraVENous q24h Nabil M Esterle, DO dextrose 5 % infusion 100 mL/hr IntraVENous PRN Negritan Lupton, DO dextrose 50 % solution 12.5 g 12.5 g IntraVENous PRN Jakgladysn Deana, DO 12.5 g at 08/17/23 1809 dilTIAZem CD (Cardizem CD) 24 hr capsule 180 mg 180 mg Oral Daily Nabil M Esterle, DO 180 mg at 08/18/23 0828 dulaglutide (Trulicity) injection 4.5 mg 4.5 mg SubCUTAneous Weekly Nabil M Esterle, DO enoxaparin (Lovenox) syringe 30 mg 30 mg SubCUTAneous 2 times per day Nabil M Esterle, DO 30 mg at 08/17/23 2329 FLUoxetine (PROzac) capsule 40 mg 40 mg [...] before lunch/285 units before dinner Lactobacillus Acid-Pectin (Acidophilus/Phoenicia Pectin) tablet Take 1 tablet by mouth [...] MD, MACP, FIDSA documented in this encounter [facility] 08-18-2023 History and physical note Department of [...] side (HCC) Anxiety disorder Bipolar 1 disorder ([facility]) Blood circulation, collateral Cellulitis chronic L lower leg COVID 12/08/2021 Depression Diabetes mellitus ([facility]) Type II, on insulin Disease [...] soft tissue disorders Other symbolic dysfunctions Schizophrenia ([facility]) Sleep apnea no CPAP Venous insufficiency Past Surgical History: Past Surgical History: Procedure Laterality Date ABCESS DRAINAGE Right 09/09/2018 FOOT; ACH COLONOSCOPY 09/19/[address] Hyde DILATION AND CURETTAGE OF UTERUS 05/18/2019 HYSTEROSCOPY 12/23/2021 LEG AMPUTATION THROUGH KNEE Right 06/16/2019 UPPER GASTROINTESTINAL ENDOSCOPY N/A 06/29/2023 Dr Sergio Sibley at [facility]; no specimens WISDOM TOOTH EXTRACTION Medications Prior [...] (BMI) of 50.0 to 59.9 in adult ([facility]) Type 2 diabetes mellitus with hyperglycemia, with long-term current use of insulin ([facility]) Hyperglycemia Post-menopausal bleeding Morbid obesity ([facility]) Left leg cellulitis Diabetic foot infection S/P AKA (above knee amputation) unilateral, right ([facility]) Class 3 severe obesity due to excess calories with serious comorbidity and body mass index (BMI) of 60.0 to 69.9 in adult ([facility]) Chest pain Chest pain, unspecified type Upper abdominal pain Intertriginous homa Abd pain DM 2 HTN HPL Plan Obs admit Hopefully back to snf tomorrow NABIL HILL DO 08/18/23 10:00 AM T [facility] 08-18-2023 History and physical note Department of [...] side (HCC) Anxiety disorder Bipolar 1 disorder ([facility]) Blood circulation, collateral Cellulitis chronic L lower leg COVID 12/08/2021 Depression Diabetes mellitus ([facility]) Type II, on insulin Disease of blood and blood forming organ Endometrial carcinoma ([facility]) 11/25/2020 Endometrial hyperplasia Foot ulcer ([facility]) Hx of blood clots RLE prior to amputation Hyperlipidemia Hypertension Lymphedema 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, RLE Morbidly obese ([facility]) Muscle weakness Osteomyelitis ([facility]) Osteomyelitis ([facility]) 2019 RLE Other lack of coordination Other specified soft tissue disorders Other symbolic dysfunctions Schizophrenia ([facility]) Sleep apnea no CPAP Venous insufficiency Past Surgical History: Past Surgical History: Procedure Laterality Date ABCESS DRAINAGE Right 09/09/2018 FOOT; ACH COLONOSCOPY 09/19/[address] Hyde DILATION AND CURETTAGE OF UTERUS 05/18/2019 HYSTEROSCOPY 12/23/2021 LEG AMPUTATION THROUGH KNEE Right 06/16/2019 UPPER GASTROINTESTINAL ENDOSCOPY N/A 06/29/2023 Dr Sergio Sibley at [facility]; no specimens WISDOM TOOTH EXTRACTION Medications Prior [...] disease due to type 2 diabetes mellitus ([facility]) Class 3 severe obesity due to excess calories with serious comorbidity and body mass index (BMI) of 50.0 to 59.9 in adult ([facility]) Type 2 diabetes mellitus with hyperglycemia, with long-term current use of insulin ([facility]) Hyperglycemia Post-menopausal bleeding Morbid obesity ([facility]) Left leg cellulitis Diabetic foot infection S/P AKA (above knee amputation) unilateral, right ([facility]) Class 3 severe obesity due to excess calories with serious comorbidity and body mass index (BMI) of 60.0 to 69.9 in adult ([facility]) Chest pain Chest pain, unspecified type Upper abdominal pain Intertriginous homa Abd pain DM 2 HTN HPL Plan Obs admit Hopefully back to snf tomorrow NABIL HILL DO 08/18/23 10:00 AM documented in this encounter [facility] 08-18-2023 Consult note Associated Order (s): IP CONSULT TO INFECTIOUS DISEASES Images from the original note were not included. [facility] - Infectious Diseases Attending Consult Note Reason for Consult: Complicated UTI History of Present Illness: Patient is 57 year old admitted to [facility] with abdominal discomfort N/V. Patient was in [...] Acquired absence of other toe(s), unspecified side ([facility]) Anxiety disorder Bipolar 1 disorder ([facility]) Blood circulation, collateral Cellulitis chronic L lower leg COVID 12/08/2021 Depression Diabetes mellitus ([facility]) Type II, on insulin Disease of blood and blood forming organ Endometrial carcinoma ([facility]) 11/25/2020 Endometrial hyperplasia Foot ulcer ([facility]) Hx of blood clots RLE prior to amputation Hyperlipidemia Hypertension Lymphedema 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, RLE Morbidly obese ([facility]) Muscle weakness Osteomyelitis ([facility]) Osteomyelitis ([facility]) 2019 RLE Other lack of coordination Other specified soft tissue disorders Other symbolic dysfunctions Schizophrenia ([facility]) Sleep apnea no CPAP Venous insufficiency Past Surgical History: Past Surgical History: Procedure Laterality Date ABCESS DRAINAGE Right 09/09/2018 FOOT; ACH COLONOSCOPY 09/19/[address] Hyde DILATION AND CURETTAGE OF UTERUS 05/18/2019 HYSTEROSCOPY 12/23/2021 LEG AMPUTATION THROUGH KNEE Right 06/16/2019 UPPER GASTROINTESTINAL ENDOSCOPY N/A 06/29/2023 Dr Sergio Sibley at [facility]; no specimens WISDOM TOOTH EXTRACTION Current Medications: [...] M Esterle, DO 10 mg at 08/18/23 08 cefTRIAXone (Rocephin) 1,000 mg in sodium chloride [...] before lunch/285 units before dinner Lactobacillus Acid-Pectin (Acidophilus/Phoenicia Pectin) tablet Take 1 tablet by mouth [...] for open encounter. Art Reddy [place], [facility] [place] [facility] 08-17-2023 Emergency department Note Bed: 27 Expected date: Expected time: Means of arrival: Comments: PHYSICIANS Lisa Curtis RN 08/17/23 1215 [facility] 08-17-2023 Emergency department Note Bed: 08 Expected date: Expected time: Means of arrival: Comments: Main 2 Dalila Mendes RN 08/17/232045 [facility] 08-17-2023 Emergency department Triage note Arrived via ems from sn[facility], co ABD pain / x 1 week, previous dx of uti, current tx w/ ATB, prior to arrival pt had zofran 4 mg at 8 am, IV placed by ems, pt able to speak in complete sentences and provide own pmhx, placed on monitor with call light within reach, continue with plan of care [facility] 08-17-2023 Physician Emergency department Note EMERGENCY DEPARTMENT [...] otherwise acutely negative except as in the [place]. 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) Acquired absence of other toe(s), unspecified side (HCC) Anxiety disorder Bipolar 1 disorder ([facility]) Blood circulation, collateral Cellulitis chronic [...] soft tissue disorders Other symbolic dysfunctions Schizophrenia ([facility]) Sleep apnea no CPAP Venous insufficiency SURGICAL HISTORY Past Surgical History: Procedure Laterality Date ABCESS DRAINAGE Right 09/09/2018 FOOT; ACH COLONOSCOPY 09/19/[address] Hyde DILATION AND CURETTAGE OF UTERUS 05/18/2019 HYSTEROSCOPY 12/23/2021 LEG AMPUTATION THROUGH KNEE Right 06/16/2019 UPPER GASTROINTESTINAL ENDOSCOPY N/A 06/29/2023 Dr Sergio Sibley at [facility]; no specimens WISDOM TOOTH EXTRACTION CURRENT MEDICATIONS [...] Culture. Procedure Abnormality Status --------- ------ Complete Urinalysis[[id number]] Please view results for these tests on [...] Medicine Provider Aaron Burgos DO 08/17/23 1528 [facility] 08-17-2023 Physician Emergency department Note Pt signed [...] medicine further management Brandon Leblanc DO 08/17/23 2249 [facility] 08-12-2023 Telephone encounter Note Faxed over recommendation. Thank you! [facility] 08-12-2023 Miscellaneous Notes Faxed over recommendation. Thank you! Please keep doses the same thank you Images from the original note were not included. Patient BGL documented in this encounter [facility] 08-12-2023 Telephone encounter Note Please keep doses the same thank you [facility] [employer] Work Phone: 08-11-2023 Telephone encounter Note Images from the original note were not included. Patient BGL [facility] 08-09-2023 Telephone encounter Note Pt rescheduled appt with herber Ramos to 08/13/23; respiratory consult for lung nodule was placed on 08/07/[address] AP confirmed 7mm lung nodule. Navigator will continue to follow and assist with follow up as needed after appt 08/13. [facility] 08-09-2023 Miscellaneous Notes Pt rescheduled appt with herber Ramos to [...] Guzman office. Received call from someone at [phone] stating they got a call to this [...] finding.Await comparison report. documented in this encounter [facility] 08-08-2023 Emergency department Note Physicians A.S.arrived and report given. Patient returned to SNF. SNF was informed. Karlos Garcia RN 08/08/23 1448 Karlos Garcia RN 08/08/23 1449 [facility] 08-08-2023 Emergency department Note Physicians [facility]arrived and report given. Patient returned to SNF. SNF was informed. Kalros Garcia RN 08/08/23 1448 Karlos Garcia RN 08/08/23 1449 Karlos Garcia RN 08/08/231122 Karlos Garcia RN 08/08/231122 Bed: 17 Expected date: Expected time: Means of arrival: Comments: Nalini Mendes RN 08/08/2332 documented in this encounter [facility] 08-08-2023 Emergency department Note Karlos Garcia RN 08/08/231122 Karlos Garcia RN 08/08/231122 [facility] 08-08-2023 Emergency department Note Bed: 17 Expected date: Expected time: Means of arrival: Comments: Nalini Mendes RN 08/08/2332 [facility] 07-23-2023 Telephone encounter Note Pt to see Herber Ramos in [facility] 07/30/23 [facility] 07-23-2023 Miscellaneous Notes Pt to see Herber Ramos in [facility] 07/30/[address] Guzman office, pt does not have any scheduled fu. Provided new phone number for patient. Added to chart. Faxed report and contact info for navigator to Jared Guzman office. Received call from someone at [phone] stating they got a call to this [...] finding.Await comparison report. documented in this encounter [facility] 07-20-2023 Telephone encounter Note Contacted Dr. Guzman office, pt does not have any scheduled fu. Provided new phone number for patient. Added to chart. [facility] 07-20-2023 Telephone encounter Note Faxed report and contact info for navigator to Jared Guzman office. [facility] [employer] 07-20-2023 Telephone encounter Note Received call from someone at [phone] stating they got a call to this number and this is a work phone. Patient and person identified via phone do not match. Will not attempt phone number again. EC contact attempted but no answer. [facility] 07-15-2023 Telephone encounter Note Lm requesting a return phone call to discuss finding [facility] 07-05-2023 Telephone encounter Note Patient appeared on ED Nuance search after CTA chest 06-28-2023 noted a 7 mm right middle lobe lung nodule. Imaging was completed for chest pain and history of DVT. Outside facility imaging on 11-22-2020 noted a right middle lobe 3 mm nodule. Requested outside facility imaging for comparison to determine whether this is an enlarging finding.Await comparison report. [facility] 07-01-2023 Note Formatting of this n ote might be different from the original. Return to [facility] this afternoon at 1:00. [facility] messaged the facility with the dc time. [facility] ambulance to transport. Ambulance transport form completed. [facility] 07-01-2023 Note Formatting of this n ote might be different from the original. Return to [facility] this afternoon at 1:00. [facility] messaged the facility with the dc time. [facility] to transport. Ambulance transport form completed. [facility] 07-01-2023 Miscellaneous Notes Return to [facility] this afternoon at 1:00. [facility] messaged the facility with the dc time. [facility] to transport. Ambulance transport form completed. Discharge med list transmitted to [facility] via [facility] per [facility] request. Patient Choice Patient Name: WILL JACINTO Date of : 1965 All Providers Sent Referral Name: [facility] Phone: [phone] Address: [address] [place] [address] Images from the original note were not included. Care Management Progress Note Pt has discharge order placed. Tasked YARD DEMURRAGE CLERK to send discharge paperwork to [facility]. Notified EQUIPMENT OPERATOR/LABORER/SUPERVISOR to arrange transportation. Facility notified pt to return today. Discharge Milestones and Delays Expected Date/Time: 07/01/2023 Midday Disposition: [facility] Transport status: No current request Discharge [...] ACS. Endocrine following. Pt to return to [facility] at discharge. Discharge Milestones and Delays Expected [...] for EGD today. Wheelchair bound. DC plan: [facility], bed hold. No authorization needed. Discharge Milestones [...] obtained: None Medications administered: 200mg Propofol per [employer] MA[employer]TENA[employer] Additional Info: Adult diet regular; 3 carb choices (45gm/meal); see Dr Sibley' orders For additional Questions please call Endoscopy at [phone]. Thank You! Dr [facility]ible[facility] in [facility] Procedure Date: 06/29/2023 8:19 AM Gender: Female Date of : 1965 Age: 57 Admit Type: Inpatient Note Status: Finalized Endoscopist: Sergio Sibley DO, [id number] Procedure: Upper GI endoscopy Indications: Chest pain [...] immediate complications. Procedure Code(s): --- Professional --- 36244, Esophagogastroduodenoscopy, flexible, transoral; diagnostic, including collection of specimen(s) by brushing or washing, when performed (separate procedure) --- Technical --- 19416, Esophagogastroduodenoscopy, flexible, transoral; diagnostic, including collection of specimen(s) by brushing or washing, when performed (separate procedure) Diagnosis Code(s): --- Professional --- R07.89, Other chest pain R11.2, Nausea with vomiting, unspecified --- Technical --- R07.89, Other chest pain R11.2, Nausea with vomiting, unspecified CPT copyright 2021 [employer]. All rights reserved. The codes documented in this report are preliminary and upon coder operator review may be revised to meet current [...] Limits Permission given to speak with patient indirect sales representative/caregiver as indicated: Yes (Jovana Quesada ([facility]) [phone]) Confirmation of Payer with patient/family: Yes Payer Name: [facility] Dual [place]: No Confirmation of Primary Care Physician: Confirmed PCP Name: Jared Guzman Seen in last 2 years?: Yes Primary Caregiver: Other (Comment) (F staff) If assistance needed, confirmed caregiver ready, willing and able to care for patient at discharge: Yes Confirmed with: Patient states staff from [facility] Living Arrangements Current Residence: ([facility]) Number of Floors Number of Entry Steps: Bed/Bath Levels: Facility: [facility]Term/[facility] Facility Name: [facility] Plan to Return: Yes Lives with: Support Systems: Family members Activities of Daily Living Ambulation: Total Care (wheelchair) Bathing/Dressing: Total Care Elimination/Continence/Toileting : Assistance Feeding: Independent Who Assists with Activities of Daily Living: Staff from [facility] Instrumental Activities of Daily Living Prescription Coverage: Yes Pharmacy Used: Pharmacy through [facility] Medication Management: Assistance Type: Dose packaging system Who assists with medication securing and setup?: F staff Transportation/Shopping: Assistance Provider Transportation Mode: Needs Assistance with Transportation at Discharge: No Meal Preparation: Assistance Provider Meal Prep Assistance Provider Name: [facility] staff Laundry/Cleaning: Assistance Provider Laundry/Cleaning Assistance Provider Name: [facility] staff Finances/Bill Paying: Assistance Provider Finances/Bill Payer Assistance Provider Name: Family Communication: Independent Types of Care Services/Equipment Utilized Care Services: Dialysis Type: NA Durable Medical Equipment: Wheelchair (standard or power) Patient's Goal/Discharge Plan Patient expects to be discharged to: Back to [facility]. Discharge Planning Actions: Continue to [...] R bka, is wheelchair bound. Lives at [facility] and plans to return. Cardiology consulted. Task sent to [facility] via Bundlr to place return referral to [facility]. TCC will continue to follow. Herber Armando RN Patient was referred to the [facility] service for admission but his primary care physician is covered by Dr. Hill. Dr. Hill will see and admit. Attending changed to Dr. Hill. documented in this encounter [facility] 07-01-2023 Note Formatting of this n ote might be different from the original. Discharge med list transmitted to [facility] via [employer] per TCC request. [facility] 07-01-2023 Note Formatting of this n ote might be different from the original. Discharge med list transmitted to [facility] via Bundlr per TCC request. [facility] 07-01-2023 Hospital course Narrative Discharge Summary Will [...] MEDICATIONS: Medication List CONTINUE taking these medications Acidophilus/Phoenicia Pectin tablet ARIPiprazole 10 MG tablet Commonly [...] Complexity: follow up within 7-14 calendar days (98116) [] Severe Complexity: follow up within 7 calendar days (15763) FOLLOW UP TESTING, PENDING RESULTS OR REFERRALS AT TRANSITIONAL CARE VISIT: [] Yes [] No PENDING STUDIES: none DISPOSITION: Skilled Facility FACILITY/HOME CARE AGENCY NAME: [facility] Follow up with Sergio Sibley DO [address] [facility] [address] Follow up As needed INSTRUCTIONS TO MA/SW: [...] 07/01/2023, 8:48 AM documented in this encounter [facility] 07-01-2023 Note Formatting of this n ote might be different from the original. Patient Choice Patient Name: WILL JACINTO Date of : 1965 All Providers Sent Referral Name: Lindsay Frias [facility] Phone: [phone] Address: [address] [place] [address] [place] [address] [facility] 07-01-2023 Note Formatting of this n ote might be different from the original. Patient Choice Patient Name: WILL JACINTO Date of : 1965 All Providers Sent Referral Name: Lindsay Frias [facility] Phone: [phone] Address: [place] [address] [facility] 07-01-2023 Note Formatting of this n ote is different from the original. Images from the original note were not included. Care Management Progress Note Pt has discharge order placed. Tasked YARD DEMURRAGE CLERK to send discharge paperwork to [facility]. Notified EQUIPMENT OPERATOR/LABORER/SUPERVISOR to arrange transportation. Facility notified pt to return today. Discharge Milestones and Delays Expected Date/Time: 07/01/2023 Midday Disposition: Penitentiary Facility Transport status: No current request Discharge [...] Length of Stay (Days): 3 GMLOS: 1.7 [facility] 07-01-2023 Note Formatting of this n ote is different from the original. Images from the original note were not included. Care Management Progress Note Pt has discharge order placed. Tasked YARD DEMURRAGE CLERK to send discharge paperwork to [facility]. Notified EQUIPMENT OPERATOR/LABORER/SUPERVISOR to arrange transportation. Facility notified pt to return today. Discharge Milestones and Delays Expected Date/Time: 07/01/2023 Midday Disposition: Penitentiary Facility Transport status: No current request Discharge [...] Length of Stay (Days): 3 GMLOS: 1.7 [facility] 06-30-2023 Hospital Discharg e instructions David Lui RN - 06/30/2023 7:25 PM EDT Continuity of Care Form Patient Name: Will Jacinto : 1965 Admit date: 06/28/2023 Discharge date: 07/01/23 Code Status Order: Full Code Advance Directives: N Admitting Physician: Nabil Hill DO PCP: Jared Guzman Discharging Nurse: Janina Discharging Hospital Unit/Room#: B2-257/B2-257 A Discharging Unit Phone Number: [phone] Emergency Contact: Extended Emergency Contact Information Primary [...] 06/29/2023 Dr Sergio Sibley at [facility]; no specimens WISDOM TOOTH EXTRACTION Immunization History: Immunization History Administered Date(s) Administered Covid-19, Pfizer Cazares Top, Do Not Dilute, (Age 12 Y+), Im, L 02/26/2022 Influenza, injectable, quadrivalent, preservative free 01/14/2019, 08/12/2021 Pfizer SARS-CoV-2 Vaccination 11/13/2020, 12/04/2020, 08/28/2021 Active Problems: Medical Problems Problem List * (Principal) Chest pain Hypertension Chest pain, unspecified type Endometrial carcinoma (HCC) Endometrial hyperplasia Diabetic hyperosmolar non-ketotic state (CMS/HCC) ([facility]) Thickened endometrium Ileus (CMS/HCC) (HCC) Complex endometrial hyperplasia with atypia Diabetic gastroparesis associated with type 2 diabetes mellitus ([facility]/HCC) ([facility]) Esophagitis Nausea and vomiting Hyperlipidemia Cellulitis and abscess of lower extremity Chronic acquired lymphedema Cellulitis Hyperandrogenism Uncontrolled type 2 diabetes mellitus with complication Chronic osteomyelitis ([facility]/HCC) ([facility]) 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 ([facility]) Class 3 severe obesity due to excess calories with serious comorbidity and body mass index (BMI) of 50.0 to 59.9 in adult ([facility]) Type 2 diabetes mellitus with hyperglycemia, with long-term current use of insulin ([facility]/HCC) ([facility]) Hyperglycemia Post-menopausal bleeding Morbid obesity ([facility]) Left leg cellulitis Diabetic foot infection ([facility]) S/P AKA (above knee amputation) unilateral, right ([facility]) Class 3 severe obesity due to excess calories with serious comorbidity and body mass index (BMI) of 60.0 to 69.9 in adult ([facility]) Isolation/Infection: Contact CRE Nurse Assessment: [...] Total assistance Toileting Total assistance Feeding 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 Independent Med Delivery yes Wound Care Documentation and Therapy: Elimination: Continence: Bowel: no Bladder: no Urinary Catheter: None Colostomy/Ileostomy/Ileal Conduit: None Date of Last BM: 06/30/23 Intake/Output Summary (Last 24 hours) at 06/30/2023 192 Last data filed at 06/30/2023 0456 Gross [...] to Facility/ Agency Name: Lindsay Frias Address: [address] [place] [id number] Fax: Dialysis Facility (if applicable) Name: Address: Dialysis Schedule: Phone: Fax: [facility] Marker signature: ICIAN SECTION Prognosis: fair Condition at Discharge: stable Rehab Potential (if transferring to Rehab): fair Recommended Labs or Other Treatments After Discharge: none Physician Certification: I certify the above information and transfer of Will Jacinto is necessary for the continuing treatment of the diagnosis listed and that he requires alf facility for greater than 30 days. Update Admission H&P: No change in H&P PHYSICIAN SIGNATURE: documented in this encounter [facility] 06-30-2023 Note Formatting of this n ote is different from the original. Images from the original note were not included. Care Management Progress Note Pt remains on 2E due to chest pain. S/P EGD 06/29-GI following.Cardiology- no evidence of ACS. Endocrine following. Pt to return to [facility] at discharge. Discharge Milestones and Delays Expected [...] Length of Stay (Days): 2 GMLOS: 1.7 [facility] 06-30-2023 Note Formatting of this n ote is different from the original. Images from the original note were not included. Care Management Progress Note Pt remains on 2E due to chest pain. S/P EGD 06/29-GI following.Cardiology- no evidence of ACS. Endocrine following. Pt to return to [facility] at discharge. Discharge Milestones and Delays Expected [...] Length of Stay (Days): 2 GMLOS: 1.7 [employer] 06-30-2023 History of Presen t illness Narrative [...] Jacinto : 1965 AGE: 57 y.o. Room/Bed: [facility] A Admission Date: 06/28/2023 Visit Date: 06/30/2023 Reason for Endocrine Consult: dm2 Provider/Team Requesting Consult: Dr. Hill PCP: Jared Guzman Outpt Diesel Service Journeyman: Dr. Lee [facility] ASSESSMENT: DM 2 poor control Cheat pain nausea Pmhx Aka Bipolar disorder Cellulitis Covid Depression Dm2 severe insulin resistance Endometrial cancer Hlp Htn Schizophrenia Osteomylelits Ojhn PLAN: Change to U500. Start Insulin U-500 [...] before lunch/285 units before dinner Lactobacillus Acid-Pectin (Acidophilus/Phoenicia Pectin) tablet 1 tablet, Oral, 2 times [...] found for: CHOLHDLRATIO No results found for: [id number] Lab Results Component Value Date TSH 2.356 11/26/2020 Radiology reportsas per the Radiologist Radiology: ECG 12 lead Result Date: 06/28/2023 Sinus tachycardia Nonspecific IVCD with LAD Left ventricular hypertrophy Minimal ST elevation, anterolateral leads Electronically Signed On 06-28-2023 5:20:13 EDT by Rosaura Mustafa CT chest angiogram w and/or wo IV contrast Result Date: 06/28/2023 [facility] 1965 [id number] Exam Date/Time: 06/28/2023 03:49 Procedure: CT CHEST [...] 06/28/2023 Patient Name: WILL JACINTO : 1965 [facility]#: [id number] Exam Date/Time: 06/28/2023 03:08 Procedure: XR CHEST [...] 06/29/2023 Dr Sergio Sibley at [facility]; no specimens WISDOM TOOTH EXTRACTION Allergy(ies): No [...] - Date - 1d - Location - [facility] - Pending the following - NABIL HILL DO 06/30/23 9:10 AM Department of Internal Medicine Division of Endocrinology, Diabetes, & Metabolism Endocrinology Note Patient Name: Will Jacinto : 1965 AGE: 57 y.o. Room/Bed: [facility]/[address] Admission Date: 06/28/2023 Visit Date: 06/29/2023 Reason for Endocrine Consult: dm2 Provider/Team Requesting Consult: Dr. Hill PCP: Jared Guzman Outpt Diesel Service Journeyman: Dr. Lee [facility] ASSESSMENT: DM 2 poor control Cheat [...] doses to be determined Outpt Follow Up-- mg endo Dr. Lee SUBJECTIVE/HPI: CHIEF COMPLAINT: Chief [...] Lying Pulse: 92 95 93 92 Resp: 18 Temp: 36.3 C (97.4 F) 36.3 [...] before lunch/285 units before dinner Lactobacillus Acid-Pectin (Acidophilus/Phoenicia Pectin) tablet 1 tablet, Oral, 2 times [...] found for: CHOLHDLRATIO No results found for: [id number] Lab Results Component Value Date TSH 2.356 [...] 06/28/2023 Patient Name: WILL JACINTO : 1965 [facility]#: [id number] Exam Date/Time: 06/28/2023 03:08 Procedure: XR CHEST [...] 06/29/2023 Dr Sergio Sibley at [facility]; no specimens WISDOM TOOTH EXTRACTION Allergy(ies): No [...] 06/29/23 9:10 AM documented in this encounter [facility] 06-30-2023 Note Sinus rhythm Abnormal R-wave progression, late transition Left ventricular hypertrophy Electronically Signed On 06-30-2023 12:43:24 EDT by Art FIGUEROA 06-30-2023 Note Sinus rhythm Abnormal R-wave progression, late transition Left ventricular hypertrophy Electronically Signed On 06-30-2023 12:43:24 EDT by Art Benavidez [facility] Plan of care note The patient [...] include implement nonpharmacological interventions to manage anxiety. [facility] 06-29-2023 Note Formatting of this n ote is different from the original. Images from the original note were not included. Care Management Progress Note Chart reviewed. Patient remains on 2 east with chest pain. HX transgender F-M, Schizophrenia, Bipolar. R BKA, is wheelchair bound. Cardiology and GI following. Plan for EGD today. Wheelchair bound. DC plan: [facility], bed hold. No authorization needed. Discharge Milestones [...] Length of Stay (Days): 1 GMLOS: 1.7 [facility] 06-29-2023 Note Formatting of this n ote is different from the original. Images from the original note were not included. Care Management Progress Note Chart reviewed. Patient remains on 2 east with chest pain. HX transgender F-M, Schizophrenia, Bipolar. R BKA, is wheelchair bound. Cardiology and GI following. Plan for EGD today. Wheelchair bound. DC plan: [facility], bed hold. No authorization needed. Discharge Milestones [...] Length of Stay (Days): 1 GMLOS: 1.7 T [facility] 06-29-2023 Procedure anesthe ben Narrative Procedure Name [...] Melissa Sosa RN documented in this encounter [place] [id number] Note* Perioperative Nursing Note - Usman Ulrich RN - 06/29/2023 10:54 AM EDT Report called to Herber Hawk [id number] Note* Perioperative Nursing Note - Usman Ulrich RN - 06/29/2023 10:54 AM EDT Report called to Herber Hawk [place] [id number] Note* Perioperative Nursing Note - Usman Ulrich RN - 06/29/2023 10:40 AM EDT POST ENDOSCOPY PROCEDURE TRANSFER REPORT Procedure completed: EGD Findings: WDL Specimens obtained: None Medications administered: 200mg Propofol per CEMENT [employer]ON MAINTENANCE Additional Info: Adult diet regular; 3 carb choices (45gm/meal); see Dr Sibley' orders For additional Questions please call Endoscopy at [phone]. Thank You! [id number] Note* Perioperative Nursing Note - Usman Ulrich RN - 06/29/2023 10:40 AM EDT POST ENDOSCOPY PROCEDURE TRANSFER REPORT Procedure completed: EGD Findings: WDL Specimens obtained: None Medications administered: 200mg Propofol per CEMENT [employer]ON MAINTENANCE Additional Info: Adult diet regular; 3 carb choices (45gm/meal); see Dr Sibley' ike For additional Questions please call Endoscopy at [phone]. Thank You! [id number] Note* Perioperative Nursing Note - Usman Ulrich RN - 06/29/2023 10:[address] Sibley in room talking to patient [place] [id number] Note* Perioperative Nursing Note - Usman Ulrich RN - 06/29/2023 10:[address] Sibley in room talking to patient [place] [id number] Note* Addendum Note - JEREMY Naranjo CRNA - 06/29/2023 10:21 AM EDT Addendum created 06/29/23 1021 by JEREMY Naranjo CRNA Attestation recorded in Intraprocedure, Intraprocedure Attestations filed [id number] Miscellaneous Notes* Addendum Note - JEREMY Naranjo CRNA - 06/29/2023 10:21 AM EDT Addendum created 06/29/23 1021 by JEREMY Naranjo CRNA Attestation recorded in Intraprocedure, Intraprocedure Attestations filed * Anesthesia Discharge Note - JEREMY Naranjo CRNA - 06/29/2023 10:20 AM EDT Patient: Maria Luisa Jacinto Procedure Summary Date: 06/29/23 Room / Location: [place] [address] / [facility] Gastroenterology Anesthesia Start: 953 Anesthesia Stop: 1018 [...] criteria has been met. documented in this [facility]08-22-2023 Note* Anesthesia Discharge Note - JEREMY Naranjo CRNA - 06/29/2023 10:20 AM EDT Patient: Maria Luisa Jacinto Procedure Summary Date: 06/29/23 Room / Location: [place] [address] / [facility] Gastroenterology Anesthesia Start: 953 Anesthesia Stop: 1018 [...] PACU criteria has been met. [facility] [id number] Anesthesiology Postoperative evaluation and management note* Anesthesia Postprocedure Evaluation - JEREMY Naranjo CRNA - 06/29/2023 10:20 AM EDT Patient: Maria Luisa Jacinto Procedure Summary Date: 06/29/23 Room / Location: [place] [address] / [facility] Gastroenterology Anesthesia Start: 953 Anesthesia Stop: 101 Procedure: EGD DIAGNOSTIC Diagnosis: Nausea and vomiting, [...] opportunity for questions and acknowledgement of understanding. [facility] [id number] Surgical operation note* Anesthesia Postprocedure Evaluation - JEREMY Naranjo CRNA - 06/29/2023 10:20 AM EDT Patient: Maria Luisa Jacinto Procedure Summary Date: 06/29/23 Room / Location: [facility] / [facility] Gastroenterology Anesthesia Start: 953 Anesthesia Stop: 1019 [...] Date/Time: 06/29/23 0900 Procedure: EGD DIAGNOSTIC Location: [place] [address] / [facility] Gastroenterology Providers: Sergio Sibley, DO Relevant Problems Cardio (+) Hyperlipidemia (+) Hypertension (+) 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 (HCC) Endo (+) Type 2 diabetes mellitus with hyperglycemia, with long-term current use of insulin ([facility]) ([facility]) (+) Uncontrolled type 2 diabetes mellitus with complication Other (+) Chronic osteomyelitis ([facility]) ([facility]) (+) Endometrial carcinoma ([facility]) Past Medical History: Past Medical History: No date: Abnormal uterine bleeding (AUB) Comment: SCHEDULED FOR THE SURGERY ON 05/16/2019 No date: Above knee amputation of right lower extremity ([facility]) No date: Acquired absence of other toe(s), unspecified side ([facility]) No date: Anxiety disorder No date: Bipolar 1 disorder ([facility]) No date: Blood circulation, collateral No date: Cellulitis Comment: chronic L lower leg 12/08/2021: COVID No date: Depression No date: Diabetes mellitus ([facility]) Comment: Type II, on insulin No date: Disease of blood and blood forming organ 11/25/2020: Endometrial carcinoma ([facility]) No date: Endometrial hyperplasia No date: Foot ulcer ([facility]) No date: Hx of blood clots Comment: RLE prior to amputation No date: Hyperlipidemia No date: Hypertension No date: Lymphedema No date: MDRO (multiple drug resistant organisms) resistance Comment: hx CRE and MRSA in 2017, RLE No date: Morbidly obese ([facility]) No date: Muscle weakness No date: Osteomyelitis ([facility]) 2019: Osteomyelitis ([facility]) Comment: RLE No date: Other lack of coordination No date: Other specified soft tissue disorders No date: Other symbolic dysfunctions No date: Schizophrenia ([facility]) No date: Sleep apnea Comment: [...] deviation no longer present documented in this [facility]08-22-2023 Nurse Note* Usman Ulrich RN - 06/29/2023 10:18 AM EDT No specimens [id number] Nurse Note* Usman Ulrich RN - 06/29/2023 10:18 AM EDT No specimens documented in this [facility]08-22-2023 Anesthesiology Preoperative evaluation and management note* Anesthesia Preprocedure Evaluation - JEREMY Naranjo CRNA - 06/29/2023 9:41 AM EDT Patient: Maria Luisa Jacinto Procedure Information Date/Time: 06/29/23 0900 Procedure: EGD DIAGNOSTIC Location: [facility] / [facility] Gastroenterology Providers: Sergio Sibley, DO Relevant Problems Cardio (+) Hyperlipidemia (+) Hypertension (+) 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 (HCC) Endo (+) Type 2 diabetes mellitus with hyperglycemia, with long-term current use of insulin (CMS/HCC) (HCC) (+) Uncontrolled type 2 diabetes mellitus with complication Other (+) Chronic osteomyelitis (CMS/HCC) (HCC) (+) Endometrial carcinoma (HCC) Past Medical History: Past Medical History: No date: Abnormal uterine bleeding (AUB) Comment: SCHEDULED FOR THE SURGERY ON 05/16/2019 No date: Above knee amputation of right lower extremity (HCC) No date: Acquired absence of other toe(s), unspecified side (HCC) No date: Anxiety disorder No date: Bipolar 1 disorder (HCC) No date: Blood circulation, collateral No date: Cellulitis Comment: chronic L lower leg 12/08/2021: COVID No date: Depression No date: Diabetes mellitus ([facility]) Comment: Type II, on insulin No date: Disease of blood and blood forming organ 11/25/2020: Endometrial carcinoma (HCC) No date: Endometrial hyperplasia No date: Foot ulcer ([facility]) No date: Hx of blood clots Comment: RLE prior to amputation No date: Hyperlipidemia No date: Hypertension No date: Lymphedema No date: 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, RLE No date: Morbidly obese ([facility]) No date: Muscle weakness No date: Osteomyelitis ([facility]) 2019: Osteomyelitis ([facility]) Comment: RLE No date: Other lack of coordination No date: Other specified soft tissue disorders No date: Other symbolic dysfunctions No date: Schizophrenia ([facility]) No date: Sleep apnea Comment: [...] ST (T wave) deviation no longer present [id number] Note* Op Note - Sergio Sibley DO - 06/29/2023 8:19 AM EDT [facility] Will Jacinto Procedure Date: 06/29/2023 8:19 AM Gender: Female Date of : 1965 Age: 57 Admit Type: Inpatient Note Status: Finalized Endoscopist: Sergio Sibley DO, [id number] Procedure: Upper GI endoscopy Indications: Chest pain [...] immediate complications. Procedure Code(s): --- Professional --- 57337, Esophagogastroduodenoscopy, flexible, transoral; diagnostic, including collection of specimen(s) by brushing or washing, when performed (separate procedure) --- Technical --- 72197, Esophagogastroduodenoscopy, flexible, transoral; diagnostic, including collection of specimen(s) by brushing or washing, when performed (separate procedure) Diagnosis Code(s): --- Professional --- R07.89, Other chest pain R11.2, Nausea with vomiting, unspecified --- Technical --- R07.89, Other chest pain R11.2, Nausea with vomiting, unspecified CPT copyright 2022 [employer]. All rights reserved. The codes documented in this report are preliminary and upon coder operator review may be revised to meet current compliance requirements. Attending Participation: I personally performed the entire procedure. Sergio Sibley DO 06/29/2023 10:29:14 AM This report has been signed electronically. Number of Addenda: 0 Note Initiated On: 06/29/2023 8:19 AM [facility]08-22-2023 Note* Op Note - Sergio Sibley DO - 06/29/2023 8:19 AM EDT [facility] Name: Will Jacinto Procedure Date: 06/29/2023 8:19 AM Gender: Female Date of : 1965 Age: 57 Admit Type: Inpatient Note Status: Finalized Endoscopist: Sergio Sibley DO, [id number] Procedure: Upper GI endoscopy Indications: Chest pain [...] immediate complications. Procedure Code(s): --- Professional --- 70742, Esophagogastroduodenoscopy, flexible, transoral; diagnostic, including collection of specimen(s) by brushing or washing, when performed (separate procedure) --- Technical --- 51693, Esophagogastroduodenoscopy, flexible, transoral; diagnostic, including collection of specimen(s) by brushing or washing, when performed (separate procedure) Diagnosis Code(s): --- Professional --- R07.89, Other chest pain R11.2, Nausea with vomiting, unspecified --- Technical --- R07.89, Other chest pain R11.2, Nausea with vomiting, unspecified CPT copyright 2021 [employer]. All rights reserved. The codes documented in this report are preliminary and upon coder operator review may be revised to meet current compliance requirements. Attending Participation: I personally performed the entire procedure. Sergio Sibley DO 06/29/2023 10:29:14 AM This report has been signed electronically. Number of Addenda: 0 Note Initiated On: 06/29/2023 8:19 AM [facility] [id number] Consult note* Sergio Sibley DO - 06/28/2023 [...] before lunch/285 units before dinner Lactobacillus Acid-Pectin (Acidophilus/Phoenicia Pectin) tablet 1 tablet, Oral, 2 times [...] Nabil M Esterle, DO, 40 mg at polyethylene glycol (PEG) 3350 (Miralax) packet 17 g, 17 g, Oral, Daily, Nabil M Esterle, DO polyethylene glycol (PEG) 3350 (Miralax) packet 17 g, 17 g, Oral, Daily PRN, Nabil M Esterle, DO potassium chloride (Klor-Con) packet 20 mEq, 20 mEq, Oral, q24h, Nabil M Esterle, DO, 20 mEq at 06/28/23 105 sodium chloride 0.9 % infusion, 75 mL/hr, IntraVENous, Continuous, Nabil M Esterle, DO, Last Rate: 75 mL/hr at 06/28/23 1054, 75 mL/hr at 06/28/23 105 ALLERGIES: No Known Allergies REVIEW OF SYMPTOMS: [...] by Sergio Sibley DO 06/28/2023 11:59 AM [employer] Phone: [phone]) 417-415508-21-2023 Consult note* Sergio Sibley DO - 06/28/2023 [...] before lunch/285 units before dinner Lactobacillus Acid-Pectin (Acidophilus/Phoenicia Pectin) tablet 1 tablet, Oral, 2 times [...] Nabil M Esterle, DO, 40 mg at polyethylene glycol (PEG) 3350 (Miralax) packet 17 g, 17 g, Oral, Daily, Nabil M Esterle, DO polyethylene glycol (PEG) 3350 (Miralax) packet 17 g, 17 g, Oral, Daily PRN, Nabil M Esterle, DO potassium chloride (Klor-Con) packet 20 mEq, 20 mEq, Oral, q24h, Nabil M Esterle, DO, 20 mEq at 06/28/23 105 sodium chloride 0.9 % infusion, 75 mL/hr, IntraVENous, Continuous, Nabil M Esterle, DO, Last Rate: 75 mL/hr at 06/28/23 1054, 75 mL/hr at 06/28/23 105 ALLERGIES: No Known Allergies REVIEW OF SYMPTOMS: [...] : 1965 AGE: 57 y.o. Room/Bed: [facility] B Admission Date: 06/28/2023 Visit Date: 06/28/2023 Reason for Endocrine Consult: dm2 Provider/Team Requesting Consult: Dr. Hill PCP: Jared Guzman Outpt Diesel Service Journeyman: Dr. Jesus spear endo ASSESSMENT: DM 2 [...] doses to be determined Outpt Follow Up-- Sh endo Dr. Lee SUBJECTIVE/HPI: CHIEF COMPLAINT: Chief Complaint Patient presents with Chest Pain Vomiting The patient presented with chest pain and nausea. Pmhx Aka Bipolar disorder Cellulitis Covid Depression Dm2 severe insulin resistance Endometrial cancer Hlp Htn Schizophrenia Osteomylelits Jhon Type of DM: 2 Onset of DM: [...] 10%-15% lower than serum/plasma values. (CLIA ID [id number]) 12/23/2021 07:28 AM 107 (H) 70 - 100 mg/dL Final Comment: Test performed by glucose meter. Results may be 10%-15% lower than serum/plasma values. (CLIA ID [id number]) 11/28/2020 04:54 PM 111 (H) 70 - 100 mg/dL Final Comment: Test performed by glucose meter. Results may be 10%-15% lower than serum/plasma values. (CLIA ID [id number]) 11/28/2020 10:18 AM 166 (H) 70 - 100 mg/dL Final Comment: Test performed by glucose meter. Results may be 10%-15% lower than serum/plasma values. (CLIA ID [id number]) 11/28/2020 07:57 AM 215 (H) 70 - 100 mg/dL Final Comment: Test performed by glucose meter. Results may be 10%-15% lower than serum/plasma values. (CLIA ID [id number]) 11/27/2020 09:08 PM 91 70 - 100 mg/dL Final Comment: Test performed by glucose meter. Results may be 10%-15% lower than serum/plasma values. (CLIA ID [id number]) Review of Systems Constitutional: Positive for appetite [...] before lunch/285 units before dinner Lactobacillus Acid-Pectin (Acidophilus/Phoenicia Pectin) tablet 1 tablet, Oral, 2 times [...] found for: CHOLHDLRATIO No results found for: [id number] Lab Results Component Value Date TSH 2.356 [...] [facility] 1965 [id number] Exam Date/Time: 06/28/2023 03:08 Procedure: XR CHEST [...] side (HCC) Anxiety disorder Bipolar 1 disorder ([facility]) Blood circulation, collateral Cellulitis chronic L lower leg COVID 12/08/2021 Depression Diabetes mellitus ([facility]) Type II, on insulin Disease [...] soft tissue disorders Other symbolic dysfunctions Schizophrenia ([facility]) Sleep apnea no CPAP Venous [...] AM EDTAssociated Order(s): IP CONSULT TO CARDIOLOGY [facility] CARDIOLOGY CONSULTATION Patient Name: Will Jacinto [...] side (HCC), Anxiety disorder, Bipolar 1 disorder ([facility]), Blood circulation, collateral, Cellulitis, COVID (12/08/2021), Depression, Diabetes mellitus ([facility]), Disease of blood and blood forming organ, Endometrial carcinoma ([facility]) (11/25/2020), Endometrial hyperplasia, Foot ulcer ([facility]), blood clots, Hyperlipidemia, Hypertension, Lymphedema,MDRO (multiple drug resistant organisms) resistance, Morbidly obese ([facility]), Muscle weakness, Osteomyelitis ([facility]), Osteomyelitis ([facility]) (2019), Other lack of coordination, Other specified soft tissue disorders, Other symbolic dysfunctions, Schizophrenia ([facility]), Sleep apnea, and Venous insufficiency. He has no past medical history of Arthritis, Asthma, CAD (coronary artery disease), Cerebral arteryocclusion with cerebral infarction ([facility]), CHF (congestive heart failure) ([facility]) ([facility]), Chronic kidney disease, COPD (chronic obstructive pulmonary disease) ([facility]), GERD (gastroesophageal reflux disease), Hemodialysis patient ([facility]) ([facility]), History of blood transfusion, Liver disease, Movement disorder, Neuromuscular disorder ([facility]), Other disorders of kidney and ureter in diseases classified elsewhere, Pneumonia, Seizures ([facility]), or Thyroid disease. SurgicalHistory: has a past surgical history that includes [place] tooth extraction; Dilation and curettage of uterus(05/18/2019); [...] units before dinner Historical Provider, Lactobacillus Acid-Pectin (Acidophilus/Phoenicia Pectin) tablet Take 1 tablet by mouth [...] and 1 tablet before bedtime. 11/28/20 Historical Provider, miconazole (Micotin) 2 % powder Apply topically [...] acute infiltrate or effusion. documented in this [facility]08-21-2023 Consult note* Geronimo Lee MD - 06/28/2023 10:45 AM EDTAssociated Order(s): IP CONSULT TO ENDOCRINOLOGY Department of Internal Medicine Division of Endocrinology, Diabetes, & Metabolism Endocrinology Note Patient Name: Will Jacinto : 1965 AGE: 57 y.o. Room/Bed: [facility] B Admission Date: 06/28/2023 Visit Date: 06/28/2023 Reason for Endocrine Consult: dm2 Provider/Team Requesting Consult: Dr. Hill PCP: Jared Guzman Outpt Diesel Service Journeyman: Dr. Jesus spear endo ASSESSMENT: DM 2 [...] 10%-15% lower than serum/plasma values. (CLIA ID [id number]) 12/23/2021 07:28 AM 107 (H) 70 - 100 mg/dL Final Comment: Test performed by glucose meter. Results may be 10%-15% lower than serum/plasma values. (CLIA ID [id number]) 11/28/2020 04:54 PM 111 (H) 70 - 100 mg/dL Final Comment: Test performed by glucose meter. Results may be 10%-15% lower than serum/plasma values. (CLIA ID [id number]) 11/28/2020 10:18 AM 166 (H) 70 - 100 mg/dL Final Comment: Test performed by glucose meter. Results may be 10%-15% lower than serum/plasma values. (CLIA ID [id number]) 11/28/2020 07:57 AM 215 (H) 70 - 100 mg/dL Final Comment: Test performed by glucose meter. Results may be 10%-15% lower than serum/plasma values. (CLIA ID [id number]) 11/27/2020 09:08 PM 91 70 - 100 mg/dL Final Comment: Test performed by glucose meter. Results may be 10%-15% lower than serum/plasma values. (CLIA ID [id number]) Review of Systems Constitutional: Positive for appetite [...] before lunch/285 units before dinner Lactobacillus Acid-Pectin (Acidophilus/Phoenicia Pectin) tablet 1 tablet, Oral, 2 times [...] found for: CHOLHDLRATIO No results found for: [id number] Lab Results Component Value Date TSH 2.356 11/26/2020 Radiology reportsas per the Radiologist Radiology: ECG 12 lead Result Date: 06/28/2023 Sinus tachycardia Nonspecific IVCD with LAD Left ventricular hypertrophy Minimal ST elevation, anterolateral leads Electronically Signed On 06-28-2023 5:20:13 EDT by Rosaura Mustafa CT chest angiogram w and/or wo IV contrast Result Date: 06/28/2023 [facility] Name: [facility] 1965 [id number] Exam Date/Time: 06/28/2023 03:49 Procedure: CT CHEST [...] Acquired absence of other toe(s), unspecified side ([facility]) Anxiety disorder Bipolar 1 disorder ([facility]) Blood circulation, collateral Cellulitis chronic L lower leg COVID 12/08/2021 Depression Diabetes mellitus ([facility]) Type II, on insulin Disease of blood and blood forming organ Endometrial carcinoma ([facility]) 11/25/2020 Endometrial hyperplasia Foot ulcer ([facility]) Hx of blood clots RLE prior to amputation Hyperlipidemia Hypertension Lymphedema 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, RLE Morbidly obese ([facility]) Muscle weakness Osteomyelitis ([facility]) Osteomyelitis ([facility]) 2019 RLE Other lack of coordination Other specified soft tissue disorders Other symbolic dysfunctions Schizophrenia ([facility]) Sleep apnea no CPAP Venous [...] state/prognosis on the date of this note. [employer] Work Phone: [phone]) 983-871208-21-2023 Note* Care Coordination - Herber Armando RN - 06/28/2023 10:12 AM EDT Care Managment Initial Assessment Date: 06/28/2023 Patient Name: Will Jacinto : 1965 Patient Information Source of Information: Patient Cognition/Language: WFL - Within Functional Limits Permission given to speak with patient indirect sales representative/caregiver as indicated: Yes (Jovana Quesada [facility]) [phone]) Confirmation of Payer with patient/family: Yes Payer Name: [facility] : No Confirmation of Primary Care Physician: Confirmed PCP Name: Jared Guzman Seen in last 2 years?: Yes Primary Caregiver: Other (Comment) ([facility] staff) If assistance needed, confirmed caregiver ready, willing and able to care for patient at discharge:Yes Confirmed with: Patient states staff from [facility] Living Arrangements Current Residence: ([facility]) Number of Floors Number of Entry Steps: Bed/Bath Levels: Facility: Long-Term/[facility]idental Care Facility Name: [facility] Plan to Return: Yes Lives with: Support Systems: Family members Activities of Daily Living Ambulation: Total Care (wheelchair) Bathing/Dressing: Total Care Elimination/Continence/Toileting: Assistance Feeding: Independent Who Assists with Activities of Daily Living: Staff from [facility] Instrumental Activities of Daily Living Prescription Coverage: Yes Pharmacy Used: Pharmacy through [facility] Medication Management: Assistance Type: Dose packaging system Who assists with medication securing and setup?: [facility] staff Transportation/Shopping: Assistance Provider Transportation Mode: Needs Assistance with Transportation at Discharge: No Meal Preparation: Assistance Provider Meal Prep Assistance Provider Name: [facility] staff Laundry/Cleaning: Assistance Provider Laundry/Cleaning Assistance Provider Name: [facility] staff Finances/Bill Paying: Assistance Provider Finances/Bill Payer Assistance Provider Name: Family Communication: Independent Types of Care Services/Equipment Utilized Care Services: Dialysis Type: NA Durable Medical Equipment: Wheelchair (standard or power) Patient's Goal/Discharge Plan Patient expects to be discharged to: Back to [facility]. Discharge Planning Actions: Continue to [...] R bka, is wheelchair bound. Lives at [facility] and plans to return. Cardiology consulted. Task sent to [facility] via [facility] to place return referral to [facility]. TCC will continue to follow. Herber Armando RN [id number] Note* Care Coordination - Herber Armando RN - 06/28/2023 10:12 AM EDT Care Managment Initial Assessment Date: 06/28/2023 Patient Name: Will Jacinto : 1965 Patient Information Source of Information: Patient Cognition/Language: WFL - Within Functional Limits Permission given to speak with patient indirect sales representative/caregiver as indicated: Yes (Jovana Quesada ([facility]) [phone]) Confirmation of Payer with patient/family: Yes Payer Name: [facility] Dual [place]: No Confirmation of Primary Care Physician: Confirmed PCP Name: Jared Guzman Seen in last 2 years?: Yes Primary Caregiver: Other (Comment) ([facility] staff) If assistance needed, confirmed caregiver ready, willing and able to care for patient at discharge:Yes Confirmed with: Patient states staff from [facility] Living Arrangements Current Residence: ([facility]) Number of Floors Number of Entry Steps: Bed/Bath Levels: Facility: Long-Term/[facility] Care Facility Name: [facility] Plan to Return: Yes Lives with: Support Systems: Family members Activities of Daily Living Ambulation: Total Care (wheelchair) Bathing/Dressing: Total Care Elimination/Continence/Toileting: Assistance Feeding: Independent Who Assists with Activities of Daily Living: Staff from [facility] Instrumental Activities of Daily Living Prescription Coverage: Yes Pharmacy Used: Pharmacy through [facility] Medication Management: Assistance Type: Dose packaging system Who assists with medication securing and setup?: [facility] staff Transportation/Shopping: Assistance Provider Transportation Mode: Needs Assistance with Transportation at Discharge: No Meal Preparation: Assistance Provider Meal Prep Assistance Provider Name: [facility] staff Laundry/Cleaning: Assistance Provider Laundry/Cleaning Assistance Provider Name: [facility] staff Finances/Bill Paying: Assistance Provider Finances/Bill Payer Assistance Provider Name: Family Communication: Independent Types of Care Services/Equipment Utilized Care Services: Dialysis Type: NA Durable Medical Equipment: Wheelchair (standard or power) Patient's Goal/Discharge Plan Patient expects to be discharged to: Back to [facility]. Discharge Planning Actions: Continue to [...] R bka, is wheelchair bound. Lives at [facility] and plans to return. Cardiology consulted. Task sent to [facility] via [facility] to place return referral to [facility]. TCC will continue to follow. Herber Armando RN [id number] Consult note* Supriya Baeza MD - 06/28/2023 9:16 AM EDT Associated Order(s): IP CONSULT TO CARDIOLOGY [facility] CARDIOLOGY CONSULTATION Patient Name: Will Jacinto [...] collateral, Cellulitis, COVID (12/08/2021), Depression, Diabetes mellitus ([facility]), Disease of blood and blood forming organ, Endometrial carcinoma (HCC) (11/25/2020), Endometrial hyperplasia, Foot ulcer ([facility]), blood clots, Hyperlipidemia, Hypertension, Lymphedema,MDRO (multiple drug resistant organisms) resistance, Morbidly obese ([facility]), Muscle weakness, Osteomyelitis ([facility]), Osteomyelitis ([facility]) (2019), Other lack of coordination, Other specified soft tissue disorders, Other symbolic dysfunctions, Schizophrenia ([facility]), Sleep apnea, and Venous insufficiency. He has no past medical history of Arthritis, Asthma, CAD (coronary artery disease), Cerebral arteryocclusion with cerebral infarction ([facility]), CHF (congestive heart failure) ([facility]) ([facility]), Chronic kidney disease, COPD (chronic obstructive pulmonary disease) ([facility]), GERD (gastroesophageal reflux disease), Hemodialysis patient ([facility]) ([facility]), History of blood transfusion, Liver disease, Movement disorder, Neuromuscular disorder ([facility]), Other disorders of kidney and ureter in diseases classified elsewhere, Pneumonia, Seizures ([facility]), or Thyroid disease. SurgicalHistory: has a past surgical history that includes [place] tooth extraction; Dilation and curettage of uterus(05/18/2019); [...] morning and 100 mg before bedtime. Historical ProviderMD insulin regular (HumuLIN R U-500 KWIKPEN) 500 UNIT/ML CONCENTRATED injection Inject under the skin 3 times daily. 285 units before breakfast/260 units before lunch/285 units before dinner Historical ProviderMD Lactobacillus Acid-Pectin (Acidophilus/Phoenicia Pectin) tablet Take 1 tablet by mouth [...] lung volumes. No acute infiltrate or effusion. T [employer] Work Phone: 1([phone]) 801-973608-21-2023 History and physical note* Nabil Hill DO [...] Acquired absence of other toe(s), unspecified side ([facility]) Anxiety disorder Bipolar 1 disorder ([facility]) Blood circulation, collateral Cellulitis chronic L lower leg COVID 12/08/2021 Depression Diabetes mellitus ([facility]) Type II, on insulin Disease of blood and blood forming organ Endometrial carcinoma ([facility]) 11/25/2020 Endometrial hyperplasia Foot ulcer ([facility]) Hx of blood clots RLE prior to amputation Hyperlipidemia Hypertension Lymphedema 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, RLE Morbidly obese ([facility]) Muscle weakness Osteomyelitis ([facility]) Osteomyelitis ([facility]) 2019 RLE Other lack of coordination Other specified soft tissue disorders Other symbolic dysfunctions Schizophrenia ([facility]) Sleep apnea no CPAP Venous [...] before lunch/285 units before dinner Lactobacillus Acid-Pectin (Acidophilus/Phoenicia Pectin) tablet Take 1 tablet by mouth [...] trops NABIL HILL DO 06/28/23 8:42 AM [id number] History and physical note* Nabil Hill DO [...] Acquired absence of other toe(s), unspecified side ([facility]) Anxiety disorder Bipolar 1 disorder ([facility]) Blood circulation, collateral Cellulitis chronic L lower leg COVID 12/08/2021 Depression Diabetes mellitus ([facility]) Type II, on insulin Disease of blood and blood forming organ Endometrial carcinoma ([facility]) 11/25/2020 Endometrial hyperplasia Foot ulcer ([facility]) Hx of blood clots RLE prior to amputation Hyperlipidemia Hypertension Lymphedema 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, RLE Morbidly obese ([facility]) Muscle weakness Osteomyelitis ([facility]) Osteomyelitis ([facility]) 2019 RLE Other lack of coordination Other specified soft tissue disorders Other symbolic dysfunctions Schizophrenia ([facility]) Sleep apnea no CPAP Venous [...] before lunch/285 units before dinner Lactobacillus Acid-Pectin (Acidophilus/Phoenicia Pectin) tablet Take 1 tablet by mouth [...] 2 diabetes mellitus with complication Chronic osteomyelitis ([facility]) ([facility]) 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 ([facility]) Class 3 severe obesity due to excess calories with serious comorbidity and body mass index (BMI) of50.0 to 59.9 in adult ([facility]) Type 2 diabetes mellitus with hyperglycemia, with long-term current use of insulin ([facility]) ([facility]) Hyperglycemia Post-menopausal bleeding Morbid obesity ([facility]) Left leg cellulitis Diabetic foot infection ([facility]) S/P AKA (above knee amputation) unilateral, right ([facility]) Class 3 severe obesity due to excess calories with serious comorbidity and body mass index (BMI) of60.0 to 69.9 in adult ([facility]) Chest pain Chest pain Nausea and vomiting DM 2 Morbid obesity HPL HTN Plan Admit to tele Consult cardio Consult endo Consult gi Clears and ivf for now Serial trops NABIL HILL DO 06/28/23 8:42 AM documented in this [facility]08-21-2023 Note* Significant Event - Ramsey Mc MD - 06/28/2023 7:59 AM EDT Patient was referred to the [facility] service for admission but his primary care physician is covered by Dr. Hill. Dr. Hill will see and admit. Attending changed to Dr. Hill. [facility] [employer] Phone: [phone]) [phone] Note* Significant Event - Ramsey Mc MD - 06/28/2023 7:59 AM EDT Patient was referred to the [facility] service for admission but his primary care physician is covered by Dr. Hill. Dr. Hill will see and admit. Attending changed to Dr. Hill. [employer] Phone: [phone]) [phone] NoteSuboptimal opacification of the pulmonary arteries. This [...] MD Electronically Signed Date/Time: 06/28/2023 4:37 AM [facility] RADIOLOGY [id number] Emergency department Note* Dalila Mendes RN - 06/28/2023 2:14 AM EDT Bed: 33 Expected date: Expected time: Means of arrival: Comments: EMS Dalila Mendes RN 06/28/23 0214 [id number] Emergency department Note* Rosaura Mustafa DO - [...] Alcohol use: No Drug use: Never SCREENINGS [place] Coma Scale Best Eye Response: Spontaneous Best [...] Pt presents to ED via EMS from [facility]. Pt is experiencing chest pain that started before midnight. Pt has also been vomiting today. Pt denies hx of MO. * Dalila Mendes RN - 06/28/2023 2:14 AM EDT Bed: 33 Expected date: Expected time: Means of arrival: Comments: EMS Dalila Mendes RN 06/28/23 0214 documented in this [facility]08-21-2023 Emergency department Triage note* Melissa Sosa RN - 06/28/2023 2:14 AM EDT Pt presents to ED via EMS from [facility]. Pt is experiencing chest pain that started before midnight. Pt has also been vomiting today. Pt denies hx of MO. 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 I relayed the message below and she verbalized understanding. [place] [id number] Miscellaneous Notes* Telephone Encounter - Radha Busby MA - 06/23/2023 8:22 AM EDT Called [facility] and spoke with nurse minesh. I relayed the message below and she verbalized understanding. * Telephone Encounter - Geronimo Lee MD - 06/22/2023 4:43 PM EDT Keep doses the same for now thank you * Telephone Encounter - Jackson Pratt - 06/22/2023 3:35 PM EDT Images from the original note were not included. Patient BGL documented in this encounterSMercy Health West [id number] Telephone encounter Note* Telephone Encounter - Geronimo Lee MD - 06/22/2023 4:43 PM EDT Keep doses the same for now thank you [facility] [employer] Work Phone: 1(643) 774-877408-15-2023 Telephone encounter Note* Telephone Encounter - Jackson Pratt - 06/22/2023 3:35 PM EDT Images from the original note were not included. Patient BGL [facility]zfsdo82[facility]-7117 Telephone encounter Note* Telephone Encounter - Idalmis Rodriguez MA - 05/18/2023 11:32 AM EDT Called patient and left message stating there is no changes at this time. [id number] Miscellaneous Notes* Telephone Encounter - Idalmis Rodriguez [...] not included. Patient BGL documented in this encounterSMercy Health West HospitalNqcdjz90-35-3237 Telephone encounter Note* Telephone Encounter - Geronimo Lee MD - 05/17/2023 4:48 PM EDT Keep doses the same increased trulicity already [facility] [employer] Work Phone: [phone]) 350-967807-10-2023 Telephone encounter Note* Telephone Encounter - Jackson Pratt - 05/17/2023 3:35 PM EDT Images from the original note were not included. Patient BGL [id number] Note* Addendum Note - Radha Busby MA - 05/07/2023 10:05 AM EDTAddended by: RADHA BUSBY on: 05/07/2023 10:05 AM Modules accepted: Orders [id number] Miscellaneous Notes* Addendum Note - Radha Busby MA - 05/07/2023 10:05 AM EDTAddended by: RADHA BUSBY on: 05/07/2023 10:05 AM Modules accepted: Orders * Telephone Encounter - Radha Busby MA - 05/07/2023 10:04 AM EDT Called [facility] and spoke with nurse ochoa. I relayed [...] not included. Patient BGL documented in this [facility]06-30-2023 Telephone encounter Note* Telephone Encounter - Radha Busby MA - 05/07/2023 10:04 AM EDT Called [facility] and spoke with nurse don. I relayed the message below and she verbalized understanding. Med req updated. [id number] Telephone encounter Note* Telephone Encounter - Geronimo Lee MD - 05/06/2023 11:19 AM EDT Please increase trulicity to 4.5 mg weekly thank you [facility] [employer] Work Phone: 1(384) 859-532806-29-2023 Miscellaneous Notes* Telephone Encounter - Geronimo Lee [...] not included. Patient BGL documented in this encounterSMercy Health West [id number] Telephone encounter Note* Telephone Encounter - Radha Busby MA - 05/06/2023 10:18 AM EDT Patient is currently taking Humulin R u500 (285 units before breakfast/260 units before lunch/285 units before dinner) Trulicity 3mg weekly [id number] Telephone encounter Note* Telephone Encounter - Geronimo Lee MD - 05/05/2023 4:27 PM EDT Please confirm current insulin doses thank you [id number] Telephone encounter Note* Telephone Encounter - Jackson Pratt - 05/05/2023 3:27 PM EDT Images from the original note were not included. Patient BGL [id number] Hospital Discharge instructions* Discharge Instructions* Jocelyn Santos MD - 03/08/2023 3:59 PM EDT Return to the ED if you cannot tolerate fluids with the Reglan. * Attachments The following attachments cannot be sent through Care Everywhere. * Gastroparesis (Delayed Gastric Emptying) (Nauruan) documented in this [facility]05-01-2023 Emergency department Note* Joellen Palmer RN - 03/08/2023 12:50 PM EDT Bed: 18 Expected date: Expected time: Means of arrival: Comments: Physicians Joellen Palmer RN 03/08/23 1250 [id number] Emergency department Note* Karlos Osborn DO - 03/08/2023 12:50 PM EDT Emergency Department Encounter [facility] ED Patient: Will Jacinto : 1965 Date [...] of a CMP which was relatively unremarkable, huypu-ck-mhfu glucose was 167, CBC was relatively unremarkable. [...] Palmer RN 03/08/23 1250 documented in this [facility]05-01-2023 Physician Emergency department Note* Karlos Osborn DO - 03/08/2023 12:50 PM EDT Emergency Department Encounter [facility] ED Patient: Will Jacinto : 1965 Date [...] of a CMP which was relatively unremarkable, rtqwf-il-achh glucose was 167, CBC was relatively unremarkable. [...] for clarification.) Karlos Osborn DO Acute Care SpeedDate Karlos Osborn DO 03/08/23 1620 [employer] Phone: 1(745) 828-545104-24-2023 Telephone encounter Note* Telephone Encounter - Radha Busby MA - 03/01/2023 9:01 AM EDT Patient received message. [place] [id number] Miscellaneous Notes* Telephone Encounter - Radha Busby [...] not included. Patient BGL documented in this encounterSJohnathan [place] [id number] Telephone encounter Note* Telephone Encounter - Radha Busby MA - 02/26/2023 1:39 PM EDT Called patient and left message to contact office. [address]Hkfhnd26-00-1151 Miscellaneous Notes* Telephone Encounter - Radha Busby [...] not included. Patient BGL documented in this [facility]04-21-2023 Telephone encounter Note* Telephone Encounter - Geronimo Lee MD - 02/26/2023 11:18 AM EDT Increase morning u500 insulin dose by 25 units please thank you [place] [id number] Telephone encounter Note* Telephone Encounter - Jackson Pratt - 02/25/2023 3:35 PM EDT Images from the original note were not included. Patient BGL [id number] History of Present illness Narrative* Geronimo Lee MD - 02/09/2023 9:20 AM EDT . [facility] [address] [place] [address] Dept: [phone] Dept Visit type: Established patient Reason for Visit: Follow-up (DM2) Assessment and Plan 1. Type 2 diabetes mellitus with hyperglycemia, with long-term current use of insulin ([facility]/HCC) ([facility]) 2. Mixed hyperlipidemia 3. Primary [...] underthe skin 3 times daily. Lactobacillus Acid-Pectin (Acidophilus/Phoenicia Pectin) tablet Take 1 tablet by mouth [...] Acquired absence of other toe(s), unspecified side ([facility]) Anxiety disorder Bipolar 1 disorder ([facility]) Blood circulation, collateral Cellulitis chronic L lower leg COVID 12/08/2021 Depression Diabetes mellitus ([facility]) Type II, on insulin Disease of blood and blood forming organ Endometrial carcinoma ([facility]) 11/25/2020 Endometrial hyperplasia Foot ulcer ([facility]) Hx of blood clots RLE prior to amputation Hyperlipidemia Hypertension Lymphedema 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, RLE Morbidly obese ([facility]) Muscle weakness Osteomyelitis ([facility]) Osteomyelitis ([facility]) 2019 RLE Other lack of coordination Other specified soft tissue disorders Other symbolic dysfunctions Schizophrenia ([facility]) Sleep apnea no CPAP Venous [...] 1.25 mg/dL 0.73 EGFR >60 mL/min >90.0 Gen110 EGFR IF NONAFRICAN QATARI >60 mL/min >90.0 GLUCOSE 70 - 100 mg/dL 119 (H) CALCIUM 8.4 - 10.4 mg/dL 9.4 (H): Data is abnormally high Latest Reference Range & Units 08/29/20 00:00 11/23/20 03:51 07/20/22 00:00 HEMOGLOBIN A1C 5.7 % 9.9 10.0 ! 10.1 ! (E) !: Data is abnormal (E): External lab result Imaging/Testing: Geronimo Lee MD documented in this [facility]01-21-2021 NoteHospitalist Discharge Summary Will Jacinto : [...] transgender male, biologically female, presented from his intermediate after abdominal pain, out of control glucose readings and reported mental status change. However, EMS in the hospital reported that he was alert and oriented x3, however, he says that recently he has had increasing abdominal distention and distress and he noticed that his glucoses have been harder and harder to control. Pt was admitted to [facility]. Pt had dysfunctinal uterine bleeding and transferred to [facility] for Code Enforcement Supervisor eval. Also had ab pain and found to have ileus. Seen by GI and recommended reglan. Pt had BMs. abd pain better. Advance diet to GI soft Seen by Code Enforcement Supervisor and had hysteroscopy with biopsy done KUB [...] 08/23/2020 No results found for: PHART, PO2ART, LOI6FFC No results for input(s): INR in the [...] Radiology ACCESSION EXAM DATE/TIME PROCEDURE ORDERING PROVIDER [id number] 11/27/2020 08:28 EST CR Abdomen AP MD MARTIN KHALED CPT code 08170 Reason For Exam (CR Abdomen AP) ileus Report ABDOMEN -1 VIEW: CLINICAL INDICATION: Ileus TECHNIQUE: 1 view of abdomen and pelvis COMPARISON: November 25, 2020 FINDINGS: Overall interval decrease in the amount of large and small bowel gas, which is in a nonobstructed pattern. No abnormal soft tissue calcifications are identified. Multilevel thoracolumbar degenerative change. IMP (more content not included)...[facility] SystemEvaluation noteNo assessment information availableWCleveland Clinic [facility] Work Phone: Evaluation note* Diagnosis Dental caries- Primary Unspecified dental caries [facility] Diagnosis Type 2 diabetes mellitus with hyperglycemia, with long-term current use of insulin ([facility]) ([facility])- Primary Mixed hyperlipidemia Primary hypertension Unspecified essential hypertension [facility] Diagnosis Abdominal pain, generalized- Primary Gastroparesis documented in this encounter [facility]* Diagnosis Chest pain, unspecified type Chest pain, unspecified type documented in this encounter [facility]* Diagnosis Pyelonephritis- Primary Unspecified pyelonephritis Upper abdominal pain Nausea Nausea alone documented in this encounter [facility]* Diagnosis Upper abdominal pain- Primary Upper abdominal pain Hypoglycemia Hypoglycemia, unspecified Abdominal pain Abdominal pain, unspecified site documented in this encounter [facility]* Diagnosis Hypoglycemia due to insulin- Primary Hypoglycemia Hypoglycemia, unspecified Hypothermia, initial encounter Altered mental status, unspecified altered mental status type 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 Hypothermia, not associated with low environmental temperature Diabetic gastroparesis associated with type 2 diabetes mellitus ([facility]) ([facility]) Type II or unspecified type diabetes mellitus with neurological manifestations, not stated as uncontrolled Type 2 diabetes mellitus with hyperglycemia, with long-term current use of insulin ([facility]) Class 3 severe obesity due to excess calories with serious comorbidity and body mass index (BMI) of 60.0 to 69.9 in adult ([facility]) Acinetobacter lwoffi infection Infection due to other gram-negative organisms in conditions classified elsewhere and of unspecified site Bacteremia due to Gram-negative bacteria Sepsis without acute organ dysfunction ([facility]) [facility]* Diagnosis Type 2 diabetes mellitus with hyperglycemia, with long-term current use of insulin ([facility])- Primary Mixed hyperlipidemia Primary hypertension Unspecified essential hypertension documented in this encounter [facility]* Diagnosis Nausea vomiting and diarrhea- Primary Dehydration documented in this encounter [facility]* Diagnosis Nausea with vomiting, unspecified [facility]* Diagnosis Nausea and vomiting, unspecified vomiting type- Primary documented in this encounter [facility]* Diagnosis Nausea and vomiting, unspecified vomiting type- Primary Cystitis Unspecified cystitis documented in this encounter [facility]* Diagnosis Hypoglycemia- Primary Hypoglycemia, unspecified documented in this encounter [facility]* Diagnosis Nausea with vomiting, unspecified- Primary Nausea with vomiting, unspecified documented in this encounter [facility]* Diagnosis Lung nodule- Primary Other diseases of lung, not elsewhere classified JOHN (obstructive sleep apnea) Obstructive sleep apnea (adult) (pediatric) Morbid obesity with BMI of 45.0-49.9, adult ([facility]) documented in this encounter [facility]* Diagnosis Solitary pulmonary nodule- Primary documented in this encounter [facility]* Diagnosis Acute cholecystitis- Primary Acute cholecystitis documented in this encounter [facility]* Diagnosis Hypoglycemic episode in patient with diabetes mellitus (HCC)- Primary documented in this encounter [facility]* Diagnosis Cholecystitis- Primary Cholecystitis, unspecified documented in this encounter [facility]* Diagnosis History of cholecystitis- Primary documented in this encounter [facility]* Diagnosis Cholecystitis- Primary Cholecystitis, unspecified documented in this encounter [facility]* Diagnosis Cholecystitis- Primary Cholecystitis, unspecified Morbid obesity (HCC) Morbid obesity Class 3 severe obesity with serious comorbidity and body mass index (BMI) of 50.0 to 59.9 in adult, unspecified obesity type ([facility]) [facility]* Diagnosis Fecal occult blood test positive- Primary History of anemia Personal history of diseases of blood and blood-forming organs Calculus of gallbladder without cholecystitis without obstruction BMI 50.0-59.9, adult (HCC) documented [facility] encounter [facility]* Diagnosis Type 2 diabetes mellitus with hyperglycemia, with long-term current use of insulin ([facility])- Primary Type 2 diabetes mellitus with diabetic autonomic neuropathy, with long-term current use of insulin ([facility]) Microalbuminuria Proteinuria Essential hypertension Unspecified essential hypertension Mixed hyperlipidemia Class 3 severe obesity due to excess calories with serious comorbidity and body mass index (BMI) of 45.0 to 49.9 in adult ([facility]) Other fecal abnormalities Personal history of diseases of the blood and blood-forming organs and certain disorders involving the immune mechanism Calculus of gallbladder without cholecystitis without obstruction Body mass index (BMI) 50.0-59.9, adult ([facility]) documented [facility] encounter [facility]* Diagnosis PAD (peripheral artery disease) ([facility])- Primary Unspecified peripheral vascular disease Hx of AKA (above knee amputation), right (HCC) Lymphedema of left leg Morbid obesity (HCC) Morbid obesity Other fecal abnormalities Personal history of diseases of the blood and blood-forming organs and certain disorders involving the immune mechanism Calculus of gallbladder without cholecystitis without obstruction Body mass index (BMI) 50.0-59.9, adult ([facility]) documented in this encounter [facility]* Diagnosis PAD (peripheral artery disease) ([facility]) Unspecified peripheral vascular disease Other fecal abnormalities Personal history of diseases of the blood and blood-forming organs and certain disorders involving the immune mechanism Calculus of gallbladder without cholecystitis without obstruction Body mass index (BMI) 50.0-59.9, adult ([facility]) documented in this encounter [facility]* Diagnosis Type 2 diabetes mellitus with [...] 50.0-59.9, adult (HCC) documented in this encounter [facility]* Diagnosis Acute nonintractable headache, unspecified headache type- Primary Nausea Nausea alone Acute cystitis without hematuria Hyperglycemia Other abnormal glucose documented in this encounter [facility] Discharge instructions* Attachments The following attachments cannot be sent through Care Everywhere. * Kidney Infection Discharge Instructions ([place]) documented in this [facility] Discharge instructions* Attachments The following attachments cannot be sent through Care Everywhere. * Acute Cystitis Discharge Instructions ([place]) * Nausea and Vomiting, Adult ED ([place]) documented in this [facility] Discharge instructions* Attachments The following attachments cannot be sent through Care Everywhere. * Upper GI Endoscopy Discharge Instructions ([place]uan) documented in this [facility] for referral (narrative)No reason for referral information availableWCleveland Clinic [facility] Work Phone: Reason for visit Narrative* Imaging (Routine) - Closed Specialty Diagnoses / Procedures Referred By Contdash Referred To Contact Cardiology Diagnoses PAD (peripheral artery disease) ([facility]) Procedures Vascular US lower extremity arterial PVR Alejandro Mandel APRN - YARD ATTENDANT [address] [address] Phone: tel: fax: Referral ID Status Reason Start Date Expiration Date Visits Re quested Visits Authorized [id number] Closed 02/01/2025 02/01/2026 1 1 [facility] for visit Narrative* Auth/Cert (Routine) Specialty Diagnoses / Procedures Referred By Contac Referred To Contact Diagnoses Other fecal abnormalities Personal history of diseases of the blood and blood-forming organs and certain disorders involving the immune mechanism Calculus of gallbladder without cholecystitis without obstruction Body mass index (BMI) 50.0-59.9, adult (HCC) Procedures CA COLONOSCOPY FLX DX W/COLLJ SPEC WHEN PFRMD CA ESOPHAGOGASTRODUODENOSCOPY TRANSORAL DIAGNOSTIC COLONOSCOPY ESOPHAGOGASTRODUODENOSCOPY, DIAGNOSTIC Farhad Chavez MD [address] [place] [address] Phone: tel: fax: [facility] [address] [place] [address] Phone: tel: Referral ID Status Reason Start Date Expiration Date Visits Re quested Visits Authorized 1 1 [facility] Health Summary Purpose Family History No Family History Records FoundNo Family History Records FoundNo Family History Records FoundNo Family History Records FoundNo Family History Records FoundNo Family History Records FoundNo Family History Records FoundNo Family History Records FoundNo Family History Records Found Advance Directives No Advanced Directives Records FoundDocuments on File Type Date Recorded Patient Director Of Corporate Strategy Expl anation DNR (Do Not Resuscitate) 09/17/2020 [...] Healthcare Agent Relationshi p Communication Jovana Quesada (A) [facility] Health Care Agent Documents on File Type Date Recorded Patient Director Of Corporate Strategy Expl anation Advance Directives and Living Will Power of Room Server Latest Code Status on File Code Status Date Activated Date Inactivated Comments Full Code 06/14/2019 6:51 PM 06/20/2019 9:23 PM Full Code 05/16/2019 6:59 PM 05/20/2019 11:51 PM Full Code 05/16/2019 8:10 AM 05/16/2019 9:40 AM Full Code 05/16/2019 6:16 AM 05/16/2019 8:09 AM Full Code 01/11/2019 10:40 PM 01/17/2019 5:31 PM Documents on File Type Date Recorded Patient Director Of Corporate Strategy Expl anation ACP-Advance Directive ACP-Power of Room Server Latest Code Status on File Code Status Date Activated Date Inactivated Comments Full Code 09/18/2020 1:15 AM Full Code 06/14/2019 6:51 PM 06/20/2019 9:23 PM Documents on File Type Date Recorded Patient Director Of Corporate Strategy Expl anation ACP-Advance Directive ACP-Power of Room Server DNR Documentation 10/01/2020 12:28 PM Latest Code [...] Documents on File Type Date Recorded Patient Director Of Corporate Strategy Expl anation DNR (Do Not Resuscitate) 09/17/2020 [...] Agent Relationshi p Communication Jovana Quesada (POA) [facility] Health Care Agent Date Activated Date Inactivated [...] Agent Relationshi p Communication Jovana Quesada (POA) [facility] Agent Documents on File Type Date Recorded Patient Director Of Corporate Strategy Expl anation DNR (Do Not Resuscitate) 10/24/2024 12:44 PM DNR (Do Not Resuscitate) 09/17/2020 Healthcare Agents on File Name Relationship Healthcare Agent Relationshi p Communication Ojvana Quesada (POA) [facility] Health Care Agent Documents on File Type Date Recorded Patient Director Of Corporate Strategy Expl anation DNR (Do Not Resuscitate) 2024 1:55 PM DNR (Do Not Resuscitate) 10/24/2024 12:44 PM DNR (Do Not Resuscitate) 09/17/2020 Documents on File Type Date Recorded Patient Director Of Corporate Strategy Expl anation DNR (Do Not Resuscitate) 2024 [...] Documents on File Type Date Recorded Patient Director Of Corporate Strategy Expl anation DNR (Do Not Resuscitate) 12/04/2024 [...] Documents on File Type Date Recorded Patient Director Of Corporate Strategy Expl anation DNR (Do Not Resuscitate) 12/04/2024 [...] Relationship Healthcare Agent Relationshi p Communication Jovana Quesaad (POA) [facility] Care Agent Healthcare Agents [...] Agents on File Name Relationship Healthcare Agent Jchi p Communication Jovana Quesada (POA) [facility] Agent Healthcare Agents on File Name Relationship Healthcare Agent Jchi p Communication Jovana Quesada (POA) [facility] Agent Healthcare Agents on File Name Relationship Healthcare Agent Jchi p Communication Jovana Quesada (POA) [facility] Care Agent Discharge Instructions * Attachments The following attachments cannot be sent through Care Everywhere. * Post-op Infection ([place]auruan) documented in this encounter* Instructions* Eva Awan RN - 01/02/2020 U500 Insulin: The physician managing your U500 insulin should give specific recommendations before your surgery. Please call the managing physician's office if you do not already have instructionsin regards to your insulin. Please bring your [facility] Information folder on the day of [...] sent through Care Everywhere. * Hysteroscopy: Pre-op (Nauruan) * levonorgestrel intrauterine system (Nauruan) documented in this encounter* Discharge Instr - [...] Hospital Unit/Room#: 268/2681 Discharging Unit Phone Number: [phone] Emergency Contact: Extended Emergency Contact Information Primary Emergency Contact: Apoorva Lubin [facility] Mobile Relation: Other Secondary Emergency Contact: Jovana [...] List Diagnosis Code Cellulitis L03.90 Chronic osteomyelitis ([facility]) M86.60 Uncontrolled type 2 diabetes mellitus with complication ([facility]) E11.8, E11.65 Type 2 diabetes mellitus with hyperglycemia, with long-term current use of insulin ([facility]) E11.65, Z79.4 Class 3 severe obesity due to excess calories with serious comorbidity and body mass index (BMI) of50.0 to 59.9 in adult ([facility]) E66.01, Z68.43 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 (HCC) E11.51 Cellulitis and abscess of lower extremity L03.119, L02.419 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 Chronic acquired lymphedema I89.0 Left leg cellulitis L03.116 Class 3 severe obesity due to excess calories with serious comorbidity and body mass index (BMI) of60.0 to 69.9 in adult ([facility]) E66.01, Z68.44 Post-menopausal bleeding N95.0 Hyperglycemia R73.9 Diabetic foot infection ([facility]) E11.628, L08.9 S/P AKA (above knee amputation) unilateral, right ([facility]) Z89.611 Morbid obesity ([facility]) E66.01 Ileus ([facility]) K56.7 Isolation/Infection: Isolation Contact Patient [...] Dependent Dressing Dependent Toileting Dependent Feeding Assisted Scaffold Worker Assisted Med Delivery none Wound Care Documentation [...] Readmission: 0 Discharging to Facility/ Agency Name: [facility] Address: [address] [place] [address] Dialysis Facility (if applicable) Name: Address: Dialysis Schedule: Phone: Fax: [facility] Marker signature: at11:40 AM EST PHYSICIAN SECTION Prognosis: Fair Condition at Discharge: Stable Rehab Potential (if transferring to Rehab): Fair Recommended Labs or Other Treatments After Discharge: none Physician Certification: I certify the above information and transfer of Will Jacinot is necessary for the continuing treatment of the diagnosis listed and that he requires Penitentiary Facility for greater 30 days. Update Admission H&P: No change in H&P PHYSICIAN SIGNATURE: * Additional Instructions* Анна Villela MD - 09/30/2020 Please fax BG logs to Dr. Lee at [phone] in 2 weeks. documented in this encounter* [...] PCP: Jared Guzman MD Discharging Nurse: Bishnu [facility] Hospital Unit/Room#: 158/1581 Discharging Unit Emergency Contact: Extended Emergency Contact Information Primary Emergency Contact: Apoorva Lubin [facility] Mobile Relation: Other Secondary Emergency Contact: QuesadaJovana Relation: Niece/Nephew Past Surgical History: Past Surgical [...] List Diagnosis Code Cellulitis L03.90 Chronic osteomyelitis ([facility]) M86.60 Uncontrolled type 2 diabetes mellitus with complication (HCC) E11.8, E11.65 Type 2 diabetes mellitus with hyperglycemia, with long-term current use of insulin (HCC) E11.65, Z79.4 Class 3 severe obesity due to excess calories with serious comorbidity and body mass index (BMI) of50.0 to 59.9 in adult (HCC) E66.01, Z68.43 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 (HCC) E11.51 Cellulitis and abscess of lower extremity L03.119, L02.419 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 Chronic acquired lymphedema I89.0 Left leg cellulitis L03.116 Class 3 severe obesity due to excess calories with serious comorbidity and body mass index (BMI) of60.0 to 69.9 in adult ([facility]) E66.01, Z68.44 Post-menopausal bleeding N95.0 Hyperglycemia R73.9 Diabetic foot infection ([facility]) E11.628, L08.9 S/P AKA (above knee amputation) unilateral, right ([facility]) Z89.611 Morbid obesity ([facility]) E66.01 Ileus ([facility]) K56.7 Nausea and vomiting R11.2 Esophagitis K20.90 Hypertension I10 Diabetic hyperosmolar non-ketotic state ([facility]) E11.00 Isolation/Infection: Isolation Contact Patient [...] Assisted Dressing Assisted Toileting Assisted Feeding Assisted Scaffold Worker Assisted Med Delivery whole Wound Care Documentation [...] Discharging to Facility/ Agency [facility] [address] D[facility] Facility (if applicable) Name: Address: Dialysis Schedule: Phone: Fax: [employer] [employer] [facility] signature: PHYSICIAN SECTION Prognosis: Good Condition at Discharge: Stable Rehab Potential (if transferring to Rehab): Good Recommended Labs or Other Treatments After Discharge: Physician Certification: I certify the above information and transfer of Will Jacinto is necessary for the continuing treatment of the diagnosis listed and that he requires Penitentiary Facility for less 30 days. Update Admission [...] PCP: Jared Guzman MD Discharging Nurse: [facility] Hospital Unit/Room#: [id number]/[id number] Discharging Unit Emergency Contact: Extended Emergency Contact Information Primary Emergency Contact: Apoorva Lubin [facility] Mobile Relation: Other Secondary Emergency Contact: Jovana [...] List Diagnosis Code Cellulitis L03.90 Chronic osteomyelitis ([facility]) M86.60 Uncontrolled type 2 diabetes mellitus with complication ([facility]) E11.8, E11.65 Type 2 diabetes mellitus with hyperglycemia, with long-term current use of insulin ([facility]) E11.65, Z79.4 Class 3 severe obesity due to excess calories with serious comorbidity and body mass index (BMI) of50.0 to 59.9 in adult ([facility]) E66.01, Z68.43 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 ([facility]) E11.51 Cellulitis and abscess of lower extremity L03.119, L02.419 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 Chronic acquired lymphedema I89.0 Left leg cellulitis L03.116 Class 3 severe obesity due to excess calories with serious comorbidity and body mass index (BMI) of60.0 to 69.9 in adult ([facility]) E66.01, Z68.44 Post-menopausal bleeding N95.0 Hyperglycemia R73.9 Diabetic foot infection ([facility]) E11.628, L08.9 Isolation/Infection: Isolation Contact [...] (171.5 kg) Mental Status: {IP PT MENTAL STATUS:94136} IV Access: {[facility] [place]:[id number]} Nursing Mobility/ADLs: Walking Assisted Transfer Assisted Bathing Assisted Dressing Assisted Toileting Assisted Feeding Assisted Scaffold Worker Independent Med Delivery whole Wound Care Documentation [...] (for information only, NOT a DME order): {EQUIPMENT:[id number]} Other Treatments: Patient's personal belongings (please select all that are sent with patient): None RN SIGNATURE: MANAGEMENT/SOCIAL WORK SECTION Inpatient Status Date: 06/14/19 Readmission Risk Assessment Score: Readmission Risk Risk of Unplanned Readmission: 28 Discharging to Facility/ Agency Name: [facility] Address:[address] [place] [address] Dialysis Facility (if applicable) Name: Address: Dialysis Schedule: Phone: Fax: [employer] [facility] signature: {Esignature:[id number]} ICIAN SECTION Prognosis: Good Condition at Discharge: Stable Rehab Potential (if transferring to Rehab): Good Recommended Labs or Other Treatments After Discharge: Physician Certification: I certify the above information and transfer of Will Jacinto is necessary for the continuing treatment of the diagnosis listed and that he requires Penitentiary Facility for greater 30 days. Update Admission H&P: No change in H&P PHYSICIAN SIGNATURE: * Additional Instructions* Jarek Katz MD - 06/16/2019 Smjye-rzi-Ktub Leg Amputation: What to Expect at Home Your Recovery An iysip-ywl-lymq amputation is surgery to remove your leg above the knee. Your doctor removed the leg while keeping as much healthy bone, skin, blood vessel, and nerve tissue as possible. After an ebetm-zxj-uxzk leg amputation, you will probably have bandages, [...] your doctor if you can take an wgxg-oai-dzxldqm medicine. If you think your pain medicine [...] Where can you learn more? Go to [email or web address] and sign in to your [employer] account. Enter K761 in the Search Health Information box to learn more about Jukpz-lsf-Zshe Leg Amputation: What to Expect at Home. If you do not have an account, please click on the "Sign Up Now" link. Current as of: July 28, 2018 Content Version: .[id number] [employer]. Care instructions adapted under license by [employer]. If youhave questions about a medical condition or this instruction, always ask your healthcare professional. [employer] disclaims any warranty or liability for your [...] Infection (chronic) of amputation stump Diagnosis Ileus ([facility]) Paralytic ileus Nausea and vomiting, intractability of vomiting not specified, unspecified vomiting type Generalized abdominal pain Abdominal pain, generalized Esophagitis Esophagitis, unspecified Chronic osteomyelitis (HCC) Chronic osteomyelitis, site unspecified 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 (HCC) Type 2 diabetes mellitus with hyperglycemia, with long-term current use of insulin ([facility]) Class 3 severe obesity due to excess calories with serious comorbidity and body mass index (BMI) of 50.0 to 59.9 in adult ([facility]) Chronic acquired lymphedema Other lymphedema Hypertension Unspecified [...] hyperglycemia, with long-term current use of insulin ([facility]) Endometrial hyperplasia Endometrial hyperplasia, unspecified Endometrial carcinoma [...] 1st attempt with 22 gauge needle at [facility]. Patient tolerated well, site benign. documented in this encounter* Valeria Calzada RN - 09/30/2020 6:43 PM EST Called report to Ninfa GUILLORY at [facility]. payroll supervisor is scheduled for 7:30PM Valeria Calzada * [...] Consult: Joann PCP: Jared Guzman MD Outpt Diesel Service Journeyman: yes, JEROME Lee/Kedar ASSESSMENT: T2DM uncontrolled with [...] standpoint: Yes Home Going Endocrine Rx Recommendations-- [id number] 160-110-150 units TID before meals Outpt Follow [...] capsule by mouth daily 09/29/20 Yes Nabil iHll, DO metoclopramide (REGLAN) 5 MG/ML injection Infuse 2 mLs intravenously every 6 hours 09/28/20 10/28/20 Yes Nabil Hill, DO pantoprazole (PROTONIX) 40 MG tablet Take [...] AC meals 08/28/20 Carito Thacker APRN - YARD ATTENDANT acetaminophen (TYLENOL) 325 MG tablet Take 650 mg by mouth every 6 hours as needed for Pain Historical Provider, SALINE NASAL SPRAY NA by Nasal route as needed Historical Provider, vitamin C (ASCORBIC ACID) 500 MG tablet Take 500 mg by mouth 2 times daily Historical Provider, MD megestrol (MEGACE) 40 MG tablet 2 po [...] AM Subjective: Admit Date: 09/17/2020 PCP: Jared Gzuman MD Interval History: pt doing ok today [...] * No resolved hospital problems. * NABIL M ESTERLE, DO * Juwan Canales, GARAGE DOOR OPENER INSTALLER - 09/30/2020 10:07 AM EST Physical Therapy Facility/Department: [facility] TELEMETRY Daily Treatment Note NAME: Will Jacinto : 1965 Date of Service: 09/30/2020 Chart review completed. Pt declined therapy this day. Pt stated that he wasn't felling up it and wanted to rest. This GARAGE DOOR OPENER INSTALLER encouraged pt to participate, pt still declined. I will re-attempt as schedule permits. Juwan Canales GARAGE DOOR OPENER INSTALLER * Valeria Calzada RN - 09/30/2020 9:39 AM EST 09/30/20 9:30 AM [phone] From: Valeria Calzada RE: WILL JACINTO 1965 Location: [facility] RM: [id number] is NPO for a procedure today. BS is 257, he is supposed to get 145u of the U-500. Would you likeme to still give? or hold with NPO status? Thank you Callback Required: NO CALLBACK RE 2 [facility] ROUTINE Read 9:36 AM 09/30/20 9:37 AM Can give half dose. I will order 75 units. Thanks Valeria Calzada * Jagdeep Grace MD - 09/30/2020 8:40 AM EST Progress Note Date:09/30/2020 Room:260/2601 Patient Name:Will Jacinto Date of :1965 Age:54 [...] PATIENT NAME: Will Jacinto DATE: 09/30/2020 PAGER: [phone] * Jagdeep Grace MD - 09/29/2020 1:00 PM EST Progress Note Date:09/29/2020 Room:260260 Patient Name:Will Jacinto Date of :1965 [...] PATIENT NAME: Will Jacinto DATE: 09/29/2020 PAGER: [phone] * Deborah Jha OTA - 09/29/2020 12:33 PM EST Occupational Therapy Facility/Department: [facility] TELEMETRY Daily Treatment Note NAME: Will [...] history that includes Abscess Drainage (Right, 09/09/2018); [place] tooth extraction; Dilation and curettage of uterus [...] Dinner Asuncion Garibay, DO 135 Units at 09/28/201828 promethazine (PHENERGAN) injection 25 mg 25 mg Intramuscular Q6H PRN Art Stapleton MD 25 mg at 09/29/20 033 morphine (PF) injection 4 mg 4 mg [...] Nabil M Esterle, DO 1 capsule at 09/28/2057 ARIPiprazole (ABILIFY) tablet 10 mg 10 mg [...] Nabil M Esterle, DO 40 mg at 09/29/20925 glucose (GLUTOSE) 40 % oral gel 15 [...] Consult: Joann PCP: Jared Guzman MD Outpt Diesel Service Journeyman: yes, JEROME Lee/Kedar ASSESSMENT: T2DM uncontrolled with [...] 60 gram limit no juice w/ trays Diesel Service Journeyman On-Call: AGAPITO Preferred Method of Communication/Reaching: gDecide. The above physician should be paged w/ questions/concerns about items being managed by Endocrinology Team. If there are any questions or concerns related to the info in this progress note please page the oncall independent beauty consultant directly. On-Call information can be found in the [employer] Directory. We can also be reached by gDecide communication system. We appreciate the opportunity to participate in this pt's ongoing medical care. ANTICIPATED ENDOCRINE HOME GOING RECOMMENDATIONS: Optimized for Discharge from Endocrine standpoint: Yes Home Going Endocrine Rx Recommendations-- Current hosp [id number] insulin doses. Outpt Follow Up-- As scheduled. [...] AC meals 08/28/20 Carito Thacker APRN - YARD ATTENDANT acetaminophen (TYLENOL) 325 MG tablet Take 650 [...] 10 mg by mouth daily Historical Provider, MD Acidophilus Lactobacillus CAPS Take 1 tablet by [...] Ordering Physician DO HILL LISA Accession Number [id number] CPT4 Codes 63527 () Reason For Exam ileus Report Clinical [...] Onl Ordering Physician ART OWEN Accession Number [id number] CPT4 Codes 80762 (CT Abdomen/Pelvis w/ IV Contrast (IV Onl), Q9967 (CT ISOVUE 370MG/ML&[id number]&ML&1) Reason For Exam abd pain/tenderness Report CT [...] 09/28/2020 1:09 PM EST Progress Note Date:09/28/2020 Room:260/2601 Patient Name:Will Jacinto Date of :1965 Age:54 [...] index (BMI) of50.0 to 59.9 in adult ([facility]) Resolved Problem: Ileus (HCC)). Plan: Start/continue incentive [...] PATIENT NAME: Will Jacinto DATE: 09/28/2020 PAGER: [phone] * Chris Muniz MD - 09/28/2020 9:18 [...] kg/m Physical Exam Not indistress Lungs clear [id number] abodmen obese non tender CBC: Recent Labs [...] Jacinto : 1965 AGE: 54 y.o. Room/Bed: [address] [place] [address] Admission Date: 09/17/2020 7:46 PM Consult Date: 09/18/20 Visit Date: 09/28/2020 Reason for Endocrine Consult: DM mgmt Provider/Team Requesting Consult: Joann PCP: Jared Guzman MD Outpt Diesel Service Journeyman: jigar, JEROME Lee/Kedar ASSESSMENT: T2DM uncontrolled with [...] 60 gram limit no juice w/ trays Diesel Service Journeyman On-Call: AGAPITO Preferred Method of Communication/Reaching: gDecide. The above physician should be paged w/ questions/concerns about items being managed by Endocrinology Team. If there are any questions or concerns related to the info in this progress note please page the oncall independent beauty consultant directly. On-Call information can be found in the [employer] Directory. We can also be reached by gDecide communication system. We appreciate the opportunity to participate in this pt's ongoing medical care. ANTICIPATED ENDOCRINE HOME GOING RECOMMENDATIONS: Optimized for Discharge from Endocrine standpoint: Yes Home Going Endocrine Rx Recommendations-- Current hosp [id number] insulin doses. Outpt Follow Up-- As scheduled. [...] TID AC meals 08/28/20 Carito Thacker, DIRECTOR WOMEN - YARD ATTENDANT acetaminophen (TYLENOL) 325 MG tablet Take 650 [...] Ordering Physician DO HILL LISA Accession Number [id number] CPT4 Codes 72070 () Reason For Exam ileus Report Clinical [...] w/ IV Contrast (IV Onl Ordering Physician [id number] UDRHAM Accession Number [id number] CPT4 Codes 18146 (CT Abdomen/Pelvis w/ IV Contrast (IV Onl), Q9967 (CT ISOVUE 370MG/ML&[id number]&ML&1) Reason For Exam abd pain/tenderness Report CT [...] of this note. * Miguel Angel Lucia Mane, GARAGE DOOR OPENER INSTALLER - 09/27/2020 3:13 PM EST Physical Therapy Facility/Department: [facility] TELEMETRY Daily Treatment Note NAME: Will Jacinto [...] Diagnosis(es): The primary encounter diagnosis was Ileus ([facility]). Diagnoses of Nausea and vomiting, intractability of vomiting not specified, unspecified vomiting type and Generalized abdominalpain were also pertinent to this visit. has a past medical history of Abnormal uterine bleeding (AUB), Above knee amputation of right lowerextremity ([facility]), Bipolar 1 disorder ([facility]), Blood circulation, collateral, Cellulitis, Depression, Diabetes mellitus ([facility]), Disease of blood and blood forming organ, Endometrial hyperplasia, Hx of blood clots, Hyperlipidemia, Hypertension, Lymphedema, MDRO (multiple drug resistant organisms) resistance, Morbidly obese ([facility]), Osteomyelitis (HCC), Osteomyelitis (HCC), Schizophrenia ([facility]), Sleep apnea, and Venous insufficiency. has a past surgical history that includes Abscess Drainage (Right, 09/09/2018); [place] tooth extraction; Dilation and curettage of uterus [...] problems. * ART STAPLETON, MDProgress Note Date:09/27/2020 Room:[address] [place] [address] Patient Name:Will Jacinto Date of :1965 Age:54 [...] Consult: Joann PCP: Jared Guzman MD Outpt Diesel Service Journeyman: yes, JEROME Lee/Kedar ASSESSMENT: T2DM uncontrolled with [...] Home Going Endocrine Rx Recommendations-- Current hosp [id number] insulin doses Outpt Follow Up-- As scheduled [...] data in the 24 hours ending 09/27/20 8945 Diet: Dietary Nutrition Supplements: Low Calorie High [...] TID AC meals 08/28/20 Carito Thacker, DIRECTOR WOMEN - YARD ATTENDANT acetaminophen (TYLENOL) 325 MG tablet Take 650 [...] 110 Units Subcutaneous Daily before lunch Asuncion Cardenass, DO 110 Units at 09/27/20 1128 insulin regular human (humuLIN R U-500 KWIKPEN) 500 UNIT/ML concentrated injection pen 135 Units 135 Units Subcutaneous Dinner Asuncion Garibay, DO 135 Units at 09/26/20 185 promethazine (PHENERGAN) injection 25 mg 25 mg [...] M Esterle, DO 5 mg at 09/24/20 182 cyclobenzaprine (FLEXERIL) tablet 10 mg 10 mg [...] GLUCOSE 207* CALCIUM 8.9 HEPATIC: Recent Labs 09/26/2013 AST 64* ALT 127* BILITOT 1.4* ALKPHOS [...] : GIB No Renal : CKD No PNEUMATIC RIVETER : CVA/TIA No Musculoskeletal system : DJD [...] Accumulation: 7 - Moderate to Severe Extremities Allergy And Immunology Chief Strength: Not Performed Estimated Daily Nutrient Needs: Energy (kcal): 8529-9733; Weight Used for Energy Requirements: Adjusted(IBW) Protein [...] Usual Body Weight: 340 lb (154.2 kg)(01/02/20) [place] Body Weight: 130 lbs; % [place] Body Weight 263.8 % BMI: 55.4 Adjusted [...] Discharge Planning: Too soon to determine Contact: *[id number] * Chris Muniz MD - 09/26/2020 11:24 [...] M Esterle, DO 4 mg at 09/23/20 211 traMADol (ULTRAM) tablet 50 mg 50 mg Oral Q12H PRN Nabil M Esterle, DO 50 mg at 09/19/20 214 vitamin C (ASCORBIC ACID) tablet 500 mg 500 mg Oral BID Nabil M Esterle, DO 500 mg at 09/26/20 0930 sodium chloride flush 0.9 % injection 10 mL 10 mL Intravenous 2 times per day Nabil M Esterle, DO 10mL at 09/25/202003 sodium chloride flush 0.9 % injection 10 [...] : GIB No Renal : CKD No PNEUMATIC RIVETER : CVA/TIA No Musculoskeletal system : DJD [...] Consult: Joann PCP: Jared Guzman MD Outpt Diesel Service Journeyman: yes, JEROME Lee/Kedar ASSESSMENT: T2DM uncontrolled with [...] Home Going Endocrine Rx Recommendations-- Current hosp [id number] insulin doses Outpt Follow Up-- As scheduled [...] data in the 24 hours ending 09/25/20 1838 Diet: DIET FULL LIQUID; Carb Control: 4 [...] TID AC meals 08/28/20 Carito Thacker, DIRECTOR WOMEN - YARD ATTENDANT acetaminophen (TYLENOL) 325 MG tablet Take 650 [...] timeof today's encounter. BMP: Recent Labs 09/23/20 01209/24/20 0843 NA 127* 133* K 3.9 3.7 CL 93* 99 CO2 24 27 BUN 26* 29* CREATININE 1.05 1.97* GLUCOSE 242* 110* Glucose: Recent Labs 09/23/20200509/24/20 0801 09/24/20 1055 09/24/20 1617 09/24/20 2127 [...] right lower extremity (HCC) Bipolar 1 disorder ([facility]) Blood circulation, collateral Cellulitis chronic [...] AC Asuncion Garibay DO 140 Units at 09/25/20 0906 insulin [...] M Esterle, DO 4 mg at 09/23/20 211 traMADol (ULTRAM) tablet 50 mg 50 mg [...] injection 1 mg 1 mg Intramuscular PRN Nabilwarren Wanle, DO dextrose 5 % solution 100 mL/hr Intravenous PRN Nabilwarren Hill, DO Intake andOutput: I/O last 3 completed [...] (HCC) Post-menopausal bleeding Hyperglycemia Diabetic foot infection ([facility]) S/P AKA (above knee amputation) unilateral, right (HCC) Morbid obesity ([facility]) Ileus ([facility]) Nausea and vomiting Esophagitis LAB Lab Results [...] : GIB No Renal : CKD No PNEUMATIC RIVETER : CVA/TIA No Musculoskeletal system : DJD [...] Consult: Joann PCP: Jared Guzman MD Outpt Diesel Service Journeyman: yes, JEROME Lee/Kedar ASSESSMENT: T2DM uncontrolled with [...] Home Going Endocrine Rx Recommendations-- Current hosp [id number] insulin doses Outpt Follow Up-- As scheduled [...] 145/84 Pulse: 94 99 97 Resp: 16 Temp: 98.2 F (36.8 C) 98.4 [...] intake/output: Intake/Output Summary (Last 24 hours) at 09/24/20201815 Last data filed at 09/24/2020 1245 Gross [...] TID AC meals 08/28/20 Carito Thacker, DIRECTOR WOMEN - YARD ATTENDANT acetaminophen (TYLENOL) 325 MG tablet Take 650 [...] BID Sergio Sibley, DO 40 mg at 09/24/2024 And sodium chloride (PF) 0.9 % injection 10 mL 10 mL Intravenous BID Sergio Sibley, DO 10 mL at 09/24/2024 lactobacillus (CULTURELLE) capsule 1 capsule 1 capsule Oral Daily Nabil M Esterle, DO 1 capsule at 09/24/2024 ARIPiprazole (ABILIFY) tablet 10 mg 10 mg [...] problems. * ART STAPLETON, MDProgress Note Date:09/23/2020 Room:[address] [place] [address] Patient Name:Will Jacinto Date of :1965 Age:54 [...] Physician MD DAVID RICHARD H Accession Number [id number] CPT4 Codes 61976 () Reason For Exam ileus, improving Report [...] Physician MD DAVID RICHARD H Accession Number [id number] CPT4 Codes 65622 () Reason For Exam ileus Report ABDOMEN: [...] Accumulation: 7 - Moderate to Severe Extremities Allergy And Immunology Chief Strength: Not Performed Estimated Daily Nutrient Needs: Energy (kcal): 2828-3703; Weight Used for Energy Requirements: Adjusted(IBW) Protein [...] Usual Body Weight: 340 lb (154.2 kg)(01/02/20) [place] Body Weight: 130 lbs; % [place] Body Weight 263.8 % BMI: 55.4 Adjusted [...] Discharge Planning: Too soon to determine Contact: *[id number] * Gayle Hanna MD - 09/23/2020 11:12 [...] PRN Kylah David MD 5 mg at 09/21/201820 pantoprazole (PROTONIX) injection 40 mg 40 mg [...] 09/23/2020 11:12 AM EST Physical Therapy Facility/Department: [facility] TELEMETRY Daily Treatment Note NAME: Will [...] history that includes Abscess Drainage (Right, 09/09/2018); [place] tooth extraction; Dilation and curettage of uterus [...] Pt will complete stand pivot transfers at [facility] to improve functional mobility(NA) Patient Goals Patient [...] Group Co-treatment Time In 0912 Time Out 09 Minutes 10 Timed Code Treatment Minutes: 10 Minutes(ther act) Carito Ruelas PT, DPT * Althea Hancock OT - 09/23/2020 10:00 AM EST Occupational Therapy Facility/Department: [facility] 2E TELEMETRY Daily Treatment Note NAME: Will [...] to address deficits and progress toward safe pa back [facility] facility. Prognosis: Fair Decision Making: Medium Complexity [...] (AUB), Above knee amputation of right lowerextremity ([facility]), Bipolar 1 disorder ([facility]), Blood circulation, collateral, Cellulitis, Depression, Diabetes mellitus ([facility]), Disease of blood and blood forming organ, Endometrial hyperplasia, Hx of blood clots, Hyperlipidemia, Hypertension, Lymphedema, MDRO (multiple drug resistant organisms) resistance, Morbidly obese ([facility]), Osteomyelitis ([facility]), Osteomyelitis (HCC), Schizophrenia ([facility]), Sleep apnea, and Venous insufficiency. has a past surgical history that includes Abscess Drainage (Right, 09/09/2018); [place] tooth extraction; Dilation and curettage of uterus [...] Group Co-treatment Time In 921 Time Out 931 Minutes 10 Timed Code Treatment Minutes: 10 Minutes(ADL) Althea Hancock OT * Asuncion Garibay, DO - 09/23/2020 8:16 AM EST Department of Internal Medicine Division of Endocrinology, Diabetes, & Metabolism Endocrinology Progress Note Patient Name: Will Jacinto : 1965 AGE: 54 y.o. Room/Bed: [facility] Admission Date: 09/17/2020 7:46 PM Consult Date: 09/18/20 Visit Date: 09/23/2020 Reason for Endocrine Consult: DM mgmt Provider/Team Requesting Consult: Joann PCP: Jared Guzman MD Outpt Diesel Service Journeyman: yes, JEROME Lee/Kedar ASSESSMENT: T2DM uncontrolled with [...] 60 gram limit no juice w/ trays Diesel Service Journeyman On-Call: AGAPITO Preferred Method of Communication/Reaching: gDecide. The above physician should be paged w/ questions/concerns about items being managed by Endocrinology Team. If there are any questions or concerns related to the info in this progress note please page the oncall independent beauty consultant directly. On-Call information can be found in the [employer] Online Directory. We can also be reached by gDecide communication system. We appreciate the opportunity to participate in this pt's ongoing medical care. ANTICIPATED ENDOCRINE HOME GOING RECOMMENDATIONS: Optimized for Discharge from Endocrine standpoint: No Home Going Endocrine Rx Recommendations-- Current hosp [id number] insulin doses. Outpt Follow Up-- As scheduled. [...] TID AC meals 08/28/20 Carito Thacker, DIRECTOR WOMEN - YARD ATTENDANT acetaminophen (TYLENOL) 325 MG tablet Take 650 [...] 2029 09/22/20 0809 09/22/20 1121 09/22/20 1530 09/22/20200509/23/20 0229 09/23/20 0737 POCGLU 440* 446* 277* [...] Ordering Physician DO HILL LISA Accession Number [id number] CPT4 Codes 47831 () Reason For Exam ileus Report Clinical [...] Onl Ordering Physician ART OWEN Accession Number [id number] CPT4 Codes 93966 (CT Abdomen/Pelvis w/ IV Contrast (IV Onl), Q9967 (CT ISOVUE 370MG/ML&[id number]&ML&1) Reason For Exam abd pain/tenderness Report CT [...] to discontinue it. I spoke with the asphalt tar and gravel roofer and re-invited him to continue to care [...] Jacinto : 1965 AGE: 54 y.o. Room/Bed: 260/[facility] Admission Date: 09/17/2020 7:46 PM Consult Date: 09/18/20 Visit Date: 09/22/2020 Reason for Endocrine Consult: DM mgmt Provider/Team Requesting Consult: Joann PCP: Jared Guzman MD Outpt Diesel Service Journeyman: yes, JEROME Lee/Kedar ASSESSMENT: T2DM uncontrolled with [...] 60 gram limit no juice w/ trays Diesel Service Journeyman On-Call: AGAPITO Preferred Method of Communication/Reaching: PerfectServe. The above physician should be paged w/ questions/concerns about items being managed by Endocrinology Team. If there are any questions or concerns related to the info in this CONSULTATION please page the web consultant independent beauty consultant directly. On-Call information can be found in the [employer] Online Directory. We can also be reached by [employer] Daily system. We appreciate the opportunity to participate in this pt's ongoing medical care. ANTICIPATED ENDOCRINE HOME GOING RECOMMENDATIONS: Optimized for Discharge from Endocrine standpoint: No Home Going Endocrine Rx Recommendations-- Current hosp [id number] insulin doses. Outpt Follow Up-- As scheduled. [...] TID AC meals 08/28/20 Carito Thacker, DIRECTOR WOMEN - YARD ATTENDANT acetaminophen (TYLENOL) 325 MG tablet Take 650 [...] Ordering Physician DO HILL LISA Accession Number [id number] CPT4 Codes 68517 () Reason For Exam ileus Report Clinical [...] Onl Ordering Physician ART OWEN Accession Number [id number] CPT4 Codes 04723 (CT Abdomen/Pelvis w/ IV Contrast (IV Onl), Q9967 (CT ISOVUE 370MG/ML&[id number]&ML&1) Reason For Exam abd pain/tenderness Report CT [...] this note. * Asuncion Valencia APRN - YARD ATTENDANT - 09/22/2020 8:31 AM EST GENERAL SURGERY [...] willingness to proceed with plan. Asuncion Valencia [facility] Personal Pager [phone] [facility] Pager [phone] during hours 7:30a-4:30p Wednesday-Wednesday After hours, please contact physician web consultant. Associated attestation - Trae Pike MD - 09/22/2020 5:39 PM EST [facility] - Surgery [facility] Physicians Surgery Patient Name: Will Jacinto Date: [...] HCT 32.5* PLT 519* HEPATIC: Recent Labs 09/19/201 AST 68* ALT 125* BILITOT 0.6 ALKPHOS [...] Consult: Joann PCP: Jared Guzman MD Outpt Diesel Service Journeyman: yes, JEROME Lee/Kedar ASSESSMENT: T2DM uncontrolled with [...] we can answer any further questions via gDecide. Inpt GMF glucose goal 150. Inpt ICU [...] 60 gram limit no juice w/ trays Diesel Service Journeyman On-Call: AGAPITO Preferred Method of Communication/Reaching: gDecide. The above physician should be paged w/ questions/concerns about items being managed by Endocrinology Team. If there are any questions or concerns related to the info in this CONSULTATION please page the web consultant independent beauty consultant directly. On-Call information can be found in the [facility] Online Directory. We can also be reached by gDecide communication system. We appreciate the opportunity to [...] TID AC meals 08/28/20 Carito Thacker, DIRECTOR WOMEN - YARD ATTENDANT acetaminophen (TYLENOL) 325 MG tablet Take 650 [...] Ordering Physician DO HILL LISA Accession Number [id number] CPT4 Codes 78393 () Reason For Exam ileus Report Clinical [...] w/ IV Contrast (IV Onl Ordering Physician [id number] DURHAM Accession Number [id number] CPT4 Codes 06689 (CT Abdomen/Pelvis w/ IV Contrast (IV Onl), Q9967 (CT ISOVUE 370MG/ML&[id number]&ML&1) Reason For Exam abd pain/tenderness Report CT [...] problems. * ART STAPLETON, MDProgress Note Date:09/20/2020 Room:[address] [place] [address] Patient Name:Will Jacinto Date of :1965 Age:54 [...] Ordering Physician DO HILL LISA Accession Number [id number] CPT4 Codes 80579 () Reason For Exam ileus Report EXAMINATION: [...] Physician MD JOANN, KYLAH Garcia Accession Number [id number] CPT4 Codes 83285 () Reason For Exam ileus fu Report [...] 09/20/2020 2:09 PM EST Occupational Therapy Facility/Department: [facility] TELEMET[facility] Daily Treatment Note NAME: Will [...] 09/20/2020 10:57 AM EST Physical Therapy Facility/Department: [facility] TELEMET[facility] Daily Treatment Note NAME: Will Jacinto : 1965 Chart review completed. Pt declined therapy this date due to nausea. I will re- attempt as schedule permits. Juwan Canales PTA * Asuncion Garibay, - 09/20/2020 8:29 AM EST Department of Internal Medicine Division of Endocrinology, Diabetes, & Metabolism Endocrinology Progress Note Patient Name: Will Jacinto : 1965 AGE: 54 y.o. Room/Bed: [address] [place] [address] Admission Date: 09/17/2020 7:46 PM Consult Date: 09/18/20 Visit Date: 09/20/2020 Reason for Endocrine Consult: DM mgmt Provider/Team Requesting Consult: Joann PCP: Jared Guzman MD Outpt Diesel Service Journeyman: yes, JEROME Lee/Kedar ASSESSMENT: T2DM uncontrolled with [...] 60 gram limit no juice w/ trays Diesel Service Journeyman On-Call: AGAPITO Preferred Method of Communication/Reaching: PerfectServe. The above physician should be paged w/ questions/concerns about items being managed by Endocrinology Team. If there are any questions or concerns related to the info in this CONSULTATION please page the web consultant independent beauty consultant directly. On-Call information can be found in the [employer] Online Directory. We can also be reached by gDecide communication system. We appreciate the opportunity to [...] TID AC meals 08/28/20 Carito Thacker, DIRECTOR WOMEN - YARD ATTENDANT acetaminophen (TYLENOL) 325 MG tablet Take 650 [...] by mouth 2 times daily 05/21/19 Nabil Hlil DO miconazole (MICOTIN) 2 % powder Apply [...] Ordering Physician DO HILL LISA Accession Number [id number] CPT4 Codes 43374 () Reason For Exam ileus Report Clinical [...] radiographic abnormality. Report Dictated on Workstation: [id number] --- Final --- Dictating Physician: MD BARRAGAN HARLAN Signed Date and Time: 09/18/20209:48 am Signed by: MD BARRAGAN HARLAN Transcribed Date and Time: 09/18/2020 10:25 Ct Abdomen Pelvis W Contrast Result Date: 09/17/2020 Patient Name: WILL JACINTO ---CT--- Exam Date/Time 09/17/202022:15:[address] Abdomen/Pelvis w/ IV Contrast (IV Onl Ordering Physician [id number] -AZUCENA ART Accession Number [id number] CPT4 Codes 07888 (CT Abdomen/Pelvis w/ IV Contrast (IV Onl), Q9967 (CT ISOVUE 370MG/ML&[id number]&ML&1) Reason For Exam abd pain/tenderness Report CT [...] 11.4* 10.6* PLT 544* 519* Recent Labs 09/18/2043 09/18/20 1402 09/19/20 0431 NA 138 134* [...] For additional Questions please call Endoscopy at [phone]. Thank You! * Asuncion Garibay DO - 09/19/2020 8:42 AM EST Department of Internal Medicine Division of Endocrinology, Diabetes, & Metabolism Endocrinology Progress Note Patient Name: Will Jacinto : 1965 AGE: 54 y.o. Room/Bed: 268/2681 Admission Date: 09/17/2020 7:46 PM Consult Date: 09/18/20 Visit Date: 09/18/2020 Reason for Endocrine Consult: DM mgmt Provider/Team Requesting Consult: Joann PCP: Jared Guzman MD Outpt Diesel Service Journeyman: yes, MG Lee/Kedar ASSESSMENT: T2DM uncontrolled with [...] 60 gram limit no juice w/ trays Diesel Service Journeyman On-Call: AGAPITO Preferred Method of Communication/Reaching: gDecide. The above physician should be paged w/ questions/concerns about items being managed by Endocrinology Team. If there are any questions or concerns related to the info in this CONSULTATION please page the web consultant independent beauty consultant directly. On-Call information can be found in the [employer] Online Directory. We can also be reached by gDecide communication system. We appreciate the opportunity to [...] Intake/Output Summary (Last 24 hours) at 09/18/2020 3528 Last data filed at 09/18/2020 1619 Gross [...] AC meals 08/28/20 Carito Thacker APRN - KRANTHI acetaminophen (TYLENOL) 325 MG tablet Take 650 [...] Daily ferrous sulfate 325 mg Oral BID FLUoxetine 40 mg Oral Daily furosemide 80 [...] 0756 09/18/20 1149 09/18/20 1619 09/18/20 1624 09/18/20 2051 POCGLU 124* 235* 312* 341* 349* 378* HgbA1C: No results for input(s): LABA1C in the last 72 hours. Hepatic: Recent Labs 09/18/20 0543 ALKPHOS 133* ALT 104* AST 74* PROT 7.8 BILITOT 0.8 LABALBU 3.9 Lipids: No results for input(s): CHOL, TRIG, HDL, LDLCALC in the last 72 hours. Invalid input(s): LDL TSH: Lab Results Component Value Date TSH 1.112 05/09/2019 T4FREE 1.15 05/09/2019 Radiology reportsas per the Radiologist Radiology: Xr Abdomen (kub) (single Ap View) Result Date: 09/18/2020 Patient Name: WILL JACINTON: [id number] ---Diagnostic Radiology--- Exam Date/Time 09/18/2020 09:25:00 EST Exam CR Abdomen AP Ordering Physician DO HILL LISA Accession Number [id number] CPT4 Codes 82092 () Reason For Exam ileus Report Clinical [...] radiographic abnormality. Report Dictated on Workstation: A [id number] --- Final --- Dictating Physician: MD BARRAGAN HARLAN Signed Date and Time: 09/18/20209:48 am Signed by: MD BARRAGAN HARLAN Transcribed Date and Time: 09/18/2020 10:25 Ct Abdomen Pelvis W Contrast Result Date: 09/17/2020 Patient Name: WILL JACINTO ---CT--- Exam Date/Time 09/17/202022:15:[address] Abdomen/Pelvis w/ IV Contrast (IV Onl Ordering Physician ART OWEN Accession Number [id number] CPT4 Codes 57954 (CT Abdomen/Pelvis w/ IV Contrast (IV Onl), Q9967 (CT ISOVUE 370MG/ML&[id number]&ML&1) Reason For Exam abd pain/tenderness Report CT [...] schizophrenia, female identifying as male. Admitted from [facility] w/ abd pain/n/v concerning for ileus. Pt [...] loss Fluid Accumulation: 1 - Mild Extremities Allergy And Immunology Chief Strength: Not Performed Estimated Daily Nutrient Needs: Energy (kcal): 4280-2792; Weight Used for Energy Requirements: Adjusted(IBW) Protein (g): 53-64; Weight Used for Protein Requirements: Adjusted(IBW) Fluid (ml/day): per MD; Nutrition Related Findings: +BS; abd round, rotund. +1 pitting edema EVARISTO R ZAIDA. Tamara 14. [id number], ALT and AST elevated Wounds: None Current Nutrition Therapies: DIET CLEAR LIQUID; Anthropometric Measures: Height: 5' 6" (167.6 cm) Current Body Weight: 360 lb (163.3 kg) Admission Body Weight: 360 lb (163.3 kg) [place] Body Weight: 130 lbs; % [place] Body Weight 276.9 % BMI: 58.1 Adjusted [...] Discharge Planning: Too soon to determine Contact: [phone] * Carito Ruelas PT - 09/18/2020 10:15 AM EST Physical Therapy Facility/Department: [facility] TELEMETRY Initial Assessment NAME: Will Jacinto : [...] Diagnosis(es): The primary encounter diagnosis was Ileus ([facility]). Diagnoses of Nausea and vomiting, [...] obese (HCC), Osteomyelitis (HCC), Osteomyelitis (HCC), Schizophrenia ([facility]), Sleep apnea, and Venous insufficiency. has a past surgical history that includes Abscess Drainage (Right, 09/09/2018); [place] tooth extraction; Dilation and curettage of uterus [...] Lives With: Other (comment) Type of Home: Facility([facility]) Home Layout: One level Bathroom Shower/Tub: Shower chair with back, Walk-in shower Bathroom Toilet: Handicap height Bathroom Equipment: Grab bars in shower, Grab bars around toilet, Shower chair Bathroom Accessibility: Wheelchair accessible Home Equipment: Rolling walker, Wheelchair-manual Receives Help From: club car attendant ADL Assistance: Needs assistance(assist for toileting and all ADLs (A x 1)) Homemaking Responsibilities: No Ambulation Assistance: Needs assistance(transfers only, wc mob) Transfer Assistance: Needs assistance(at [facility] to w/c) Active Transit Authority Police Officer: No Patient's Transit Authority Police Officer Info: facility, [facility] transport Additional Comments: pt states staff [...] climbing 3-5 steps with a railing?: Total AM-[facility] Inpatient Mobility Raw Score : 10 AM-PAC Inpatient T-Scale Score : 32.29 Mobility Inpatient CMS 0-100% Score: 76.75 Mobility Inpatient CMS G-Code Modifier : CL AM-PAC Score AM-PAC Inpatient Mobility Raw Score : 10 (09/18/20951) AM-PAC Inpatient T-Scale Score : 32.29 (09/18/20951) Mobility [...] Time Individual Concurrent Group Co-treatment Time In 931(co-eval with OT) Time Out 0942 Minutes 10 [...] history that includes Abscess Drainage (Right, 09/09/2018); [place] tooth extraction; Dilation and curettage of uterus [...] Lives With: Other (comment) Type of Home: Facility([facility]) Home Layout: One level Bathroom Shower/Tub: Shower chair with back, Walk-in shower Bathroom Toilet: Handicap height Bathroom Equipment: Grab bars in shower, Grab bars around toilet, Shower chair Bathroom Accessibility: Wheelchair accessible Home Equipment: Rolling walker, Wheelchair-manual Receives Help From: club car attendant ADL Assistance: Needs assistance(assist for toileting and all ADLs (A x 1)) Homemaking Responsibilities: No Ambulation Assistance: Needs assistance(transfers only, wc mob) Transfer Assistance: Needs assistance(at [facility] to w/c) Active Transit Authority Police Officer: No Patient's Transit Authority Police Officer Info: facility, [facility] transport Additional Comments: pt states staff [...] sit: Stand by assistance Transfer Comments: at [facility] with bed height slightly elevated Vision - [...] 2: Pt will complete BSC transfer at [facility] with MIN A. Short term goal 3: [...] : GIB No Renal : CKD No PNEUMATIC RIVETER : CVA/TIA No Musculoskeletal system : DJD [...] meds Priyank Rios MD * Ema Escobedo, DIRECTOR WOMEN - PNEUMATIC RIVETER - 11/28/2020 10:52 AM EST Department of Internal Medicine Division of Endocrinology, Diabetes, & Metabolism Endocrinology Progress Note Patient Name: Will Jacinto : 1965 AGE: 55 y.o. Room/Bed: [facility] Admission Date: 11/22/2020 5:55 PM Consult Date: 11/24/20 Visit Date: 11/28/2020 Reason for Endocrine Consult: "out of control diabetic" Provider/Team Requesting Consult: Joann PCP: Jared Guzman MD Outpt Diesel Service Journeyman: yes, [facility] ASSESSMENT: T2DM uncontrolled w/ hyperglycemia, on long-term [...] doses (160-110-150 units TID) Outpt Follow Up-- [facility] Lee Appointment request sent to Endo office Staff: No, has appt in January SUBJECTIVE/HPI: CHIEF COMPLAINT: Abdominal Pain Type of DM: 2 Onset of DM: unclear Home DM Medication Regimen: U500 pen 160/110/150 TID; given via [facility] ([facility]) DM control (last A1c/glucose data): [...] am. Plan for d/c to [facility] later today. ROS negative except for those [...] Radiology ACCESSION EXAM DATE/TIME PROCEDURE ORDERING PROVIDER [id number] 11/22/2020 18:30 EST CR Chest Portable [id number] CUTLER CPT code 04207 Reason For Exam (CR Chest Portable) SOB [...] Tomography ACCESSION EXAM DATE/TIME PROCEDURE ORDERING PROVIDER [id number] 11/22/2020 19:[address] Abdomen/Pelvis w/ IV [id number] JOEL PHAM Contrast (IV Onl CPT code 82225 Q9967 Reason For Exam (CT Abdomen/Pelvis w/ [...] lobe pulmonary nodule. Report Dictated on Workstation: [employer] [id number] --- Final --- Dictating Physician: MD KELLEY [...] radiology, and other reports. I reviewed the UTILITY LINEMAN/resident's note and agree with the documented findings [...] outpatient - plan to DC back to [facility] * Michael Martin MD - 11/28/2020 9:03 [...] 08/23/2020 No results found for: PHART, PO2ART, [id number] No results for input(s): INR in the [...] Advance diet to GI soft Seen by Code Enforcement Supervisor and had hysteroscopy with biopsy done KUB improving. Follow today. Cont laxative regimen. Monitor KUB Seen by GI -started reglan Cont PPI Endocrinology following for hyperglycemia Pt denied any chest pain. Troponin negative. Seen by cardiology Added PT/OT Discharge planning if tolerating diet. 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 Pt reports his wt fluctuates frequently, stating UBW 350#, and pt last weighed 353# in nursing facility within past month Malnutrition Assessment: Malnutrition Status: Insufficient data Estimated Daily Nutrient Needs: Energy (kcal): 8096-4654; Weight Used for Energy Requirements: Adjusted(IBW) Protein [...] however 330# per Epic 09/17, 340# 01/02) [place] Body Weight: 130 lbs; % [place] Body Weight 243.8 % BMI: 51.2 Adjusted [...] Discharge Planning: Too soon to determine Contact: [phone] * Ema Escobedo, DIRECTOR WOMEN - PNEUMATIC RIVETER - 11/27/2020 1:41 PM EST Department of Internal Medicine Division of Endocrinology, Diabetes, & Metabolism Endocrinology Progress Note Patient Name: Will Jacinto : 1965 AGE: 55 y.o. Room/Bed: [facility] Admission Date: 11/22/2020 5:55 PM Consult Date: 11/24/20 Visit Date: 11/27/2020 Reason for Endocrine Consult: "out of control diabetic" Provider/Team Requesting Consult: Joann PCP: Jared Guzman MD Outpt Diesel Service Journeyman: yes, [facility] ASSESSMENT: T2DM uncontrolled w/ hyperglycemia, on long-term [...] doses (160-110-150 units TID) Outpt Follow Up-- [facility] [place] Lee Appointment request sent to Endo office Staff: No, has appt in January SUBJECTIVE/HPI: CHIEF COMPLAINT: Abdominal Pain Type of DM: 2 Onset of DM: unclear Home DM Medication Regimen: U500 pen 160/110/150 TID; given via SNF ([facility]) DM control (last A1c/glucose data): Lab Results Component Value Date LABA1C 10.0 (A) 11/23/2020 Lab Results Component Value Date EAG 240 11/23/2020 Pt is now s/p D&C and IUD placement. C/o abd tenderness, nausea. No BM today. Had soup and milk this am. Denies CP/SOB. BG 205 this am. Pt continues to be on full liquid currently. Plan for d/c to [facility] once stable. ROS negative except for those [...] Radiology ACCESSION EXAM DATE/TIME PROCEDURE ORDERING PROVIDER [id number] 11/22/2020 18:30 EST CR Chest Portable [id number] NELSON CPT code 08040 Reason For Exam (CR Chest Portable) SOB [...] Tomography ACCESSION EXAM DATE/TIME PROCEDURE ORDERING PROVIDER [id number] 11/22/2020 19:[address] Abdomen/Pelvis w/ IV 318000 -JOEL NELSON Contrast (IV Onl CPT code 06619 Q9967 Reason For Exam (CT Abdomen/Pelvis w/ [...] radiology, and other reports. I reviewed the UTILITY LINEMAN/resident's note and agree with the documented findings [...] outpatient - plan to DC back to [facility] * Morenita Steele V., PT - 11/27/2020 9:48 AM EST Physical Therapy Facility/Department: [facility] ONCOLOGY Initial Assessment NAME: Will Jacinto : [...] history that includes Abscess Drainage (Right, 09/09/2018); [place] tooth extraction; Dilation and curettage of uterus [...] Home Equipment: Wheelchair-electric Receives Help From: Family, club car attendant ADL Assistance: Needs assistance Homemaking Assistance: Needs assistance Homemaking Responsibilities: No Active Transit Authority Police Officer: No Patient's Transit Authority Police Officer Info: facility, [facility] transport Additional Comments: from facility, assist with ADLs, uses electric wheelchair for mobility, stand pivot transfer with [facility] 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 Goals and/or [...] 08/23/2020 No results found for: PHART, PO2ART, [id number] No results for input(s): INR in the [...] had multiple BMs this morning. Seen by Code Enforcement Supervisor and had hysteroscopy today with biopsy done [...] history that includes Abscess Drainage (Right, 09/09/2018); [place] tooth extraction; Dilation and curettage of uterus [...] Home Equipment: Wheelchair-electric Receives Help From: Family, club car attendant ADL Assistance: Needs assistance Homemaking Assistance: Needs assistance Homemaking Responsibilities: No Active Transit Authority Police Officer: No Patient's Transit Authority Police Officer Info: facility, [facility] transport Additional Comments: from facility, assist with ADLs, uses electric wheelchair for mobility, stand pivot transfer with FWW 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 Daily Activity Inpatient How much [...] How much help for eating meals?: None [facility] Inpatient Daily Activity Raw Score: [address] [facility] Inpatient ADL T-Scale Score : 34.69 ADL Inpatient CMS 0-100% Score: 56.46 ADL Inpatient [facility] G-Code Modifier : CK Goals Short term [...] Plan of Care supervision is transferred to [facility] Rehab Occupational Therapist. Goals and/or treatment plan was established in collaboration with patient/family/other representatives. Denise Ramon OTR/L * Jagdeep Grace MD - 11/27/2020 8:14 AM EST Progress Note Date:11/27/2020 Room:[address] [place] [address] Patient Name:Will Jacinto Date of :1965 Age:55 [...] dry. Labs/Imaging/Diagnostics Labs: CBC: Recent Labs 11/25/20 043 WBC 7.6 RBC 3.35* HGB 10.0* HCT [...] Radiology ACCESSION EXAM DATE/TIME PROCEDURE ORDERING PROVIDER [id number] 11/25/2020 15:08 EST CR Abdomen AP Lorenzo STAPLETON MICHAEL CPT code 28768 Reason For Exam (CR Abdomen AP) abd [...] Ultrasound ACCESSION EXAM DATE/TIME PROCEDURE ORDERING PROVIDER [id number] 11/25/2020 10:38 EST US Transvaginal MD CRAMER DIANA CHRISTINE CPT code 24005 Reason For Exam (US Transvaginal) AUB Report [...] PATIENT NAME: Will Jacinto DATE: 11/27/2020 PAGER: [phone] * Ema Escobedo, DIRECTOR WOMEN - PNEUMATIC RIVETER - 11/26/2020 1:45 PM EST Department of Internal Medicine Division of Endocrinology, Diabetes, & Metabolism Endocrinology Progress Note Patient Name: Will Jacinto : 1965 AGE: 55 y.o. Room/Bed: [address] [place] [address] Admission Date: 11/22/2020 5:55 PM Consult Date: 11/24/20 Visit Date: 11/26/2020 Reason for Endocrine Consult: "out of control diabetic" Provider/Team Requesting Consult: Joann PCP: Jared Guzman MD Outpt Diesel Service Journeyman: yes, [facility] ASSESSMENT: T2DM uncontrolled w/ hyperglycemia, on long-term [...] doses (160-110-150 units TID) Outpt Follow Up-- [facility] [place] Lee Appointment request sent to Endo office Staff: No, has appt in January SUBJECTIVE/HPI: CHIEF COMPLAINT: Abdominal Pain Type of DM: 2 Onset of DM: unclear Home DM Medication Regimen: U500 pen 160/110/150 TID; given via SNF ([facility]) DM control (last A1c/glucose data): Lab Results [...] currently. Plan for d/c to [facility] once stable. ROS negative except for those [...] as needed for Constipation 11/25/20 Yes Art Stapleotn MD metoclopramide (REGLAN) 5 MG/ML injection Infuse [...] Radiology ACCESSION EXAM DATE/TIME PROCEDURE ORDERING PROVIDER [id number] 11/22/2020 18:30 EST CR Chest Portable [id number] NELSON CPT code 18746 Reason For Exam (CR Chest Portable) SOB [...] Tomography ACCESSION EXAM DATE/TIME PROCEDURE ORDERING PROVIDER [id number] 11/22/2020 19:[address] Abdomen/Pelvis w/ IV [id number] -JOEL NELSON Contrast (IV Onl CPT code 04979 Q9967 Reason For Exam (CT Abdomen/Pelvis w/ [...] radiology, and other reports. I reviewed the UTILITY LINEMAN/resident's note and agree with the documented findings [...] outpatient - plan to DC back to [facility] Time spent with patient over 51% total time 15 minutes which includes review of records, counseling, management, and coordination of care as documented in note. * Jagdeep Grace MD - 11/26/2020 12:59 PM EST Progress Note Date:11/26/2020 Room:[address] [place] [address] Patient Name:Will Jacinto Date of :1965 Age:55 [...] Radiology ACCESSION EXAM DATE/TIME PROCEDURE ORDERING PROVIDER [id number] 11/25/2020 15:08 EST CR Abdomen AP Lorenzo STAPLETON MICHAEL CPT code 37919 Reason For Exam (CR Abdomen AP) abd [...] Ultrasound ACCESSION EXAM DATE/TIME PROCEDURE ORDERING PROVIDER [id number] 11/25/2020 10:38 EST US Transvaginal MD CRAMER DIANA CHRISTINE CPT code 47051 Reason For Exam (US Transvaginal) AUB Report [...] PATIENT NAME: Will Jacinto DATE: 11/26/2020 PAGER: [phone] * Leonela Guerrero MD - 11/26/2020 12:35 PM EST Underwent uncomplicated PEUA, D&C, and IUD placement this morning. Megace discontinued as she is now being treated with levonorgestrel IUD. Will await pathology results and arrange outpatient follow up. INSURANCE CLAIMS REPRESENTATIVE ONC will sign off at this time. Please re-consult with further questions or concerns. Discussed w/ Dr. Dejesus. * Michael Martin MD - 11/26/2020 10:24 AM EST Hospitalist Progress Note 11/26/2020 10:25 AM Subjective: Admit Date: 11/22/2020 PCP: Jared Guzman MD Interval History: No overnight issues. DIET FULL LIQUID; No intake/output data recorded. Date 11/26/20 0000 - 11/26/20 2359 Shift [id number] 3742-4517 [phone] 24 Hour Total INTAKE P.O.(mL/kg/hr) 100 100 [...] 08/23/2020 No results found for: PHART, PO2ART, HRQ0BWO No results for input(s): INR in the [...] Plan: Pt was transferred from [facility] Seen by Code Enforcement Supervisor and had hysteroscopy today with biopsy done KUB showing possible ileus. Pt asking for food. Cont liquid diet for now. Add miralax. Monitor serial KUBs. Seen by GI -started reglan Cont PPI Endocrinology following for hyperglycemia Pt denied any chest pain. Troponin negative. Seen by cardiology Follow clinically. Michael Martin MD [facility] Hospitalist * Leonela Guerrero MD - 11/26/2020 6:17 AM EST Gynecologic Oncology Progress Note Date: 11/26/2020 Time: 6:17 AM Will Jacinto 55 y.o. transgender male admitted to [facility] for abdominal pain and uncontrolled [...] injection 0-16 Units 0-16 Units Subcutaneous TID AC Asuncion Garibay DO 6 Units at 11/25/201812 Diagnostics: Xr Chest [...] Jacinto 55 y.o. transgender male admitted to [facility] for abdominal pain and uncontrolled [...] determine long-term management Appreciate primary team and independent beauty consultant management of medical comorbidities. Most recent [...] Consult: Joann PCP: Jared Guzman MD Outpt Diesel Service Journeyman: yes, [facility] ASSESSMENT: T2DM uncontrolled w/ hyperglycemia, [...] doses (160-110-150 units TID) Outpt Follow Up-- [facility] [place]. Lee Appointment request sent to Endo office Staff: No, has appt in January SUBJECTIVE/HPI: CHIEF COMPLAINT: Abdominal Pain Type of DM: 2 Onset of DM: unclear Home DM Medication Regimen: U500 pen 160/110/150 TID; given via [facility] ([facility]) DM control (last A1c/glucose data): [...] Radiology ACCESSION EXAM DATE/TIME PROCEDURE ORDERING PROVIDER [id number] 11/22/2020 18:30 EST CR Chest Portable [id number] NELSON CPT code 75981 Reason For Exam (CR Chest Portable) SOB [...] Tomography ACCESSION EXAM DATE/TIME PROCEDURE ORDERING PROVIDER [id number] 11/22/2020 19:[address] Abdomen/Pelvis w/ IV [id number] -JOEL NELSON Contrast (IV Onl CPT code 10001 Q9967 Reason For Exam (CT Abdomen/Pelvis w/ [...] excessive vaginal clots, patient not seen by INSURANCE CLAIMS REPRESENTATIVE ("due tohigh glucoses"). His glucose came down [...] in transgender male, hx of endometrial hyperplasia, INSURANCE CLAIMS REPRESENTATIVE consulted 5. Morbid obesity, obstructive sleep apnea on no mask 6. S/p RLE AKA 7. HTN 8. HPL 9. Depression/schizophrenia/bipolar type 1 10. Hx of chronic LLE cellulitis/lymphedema 11. Debility Advance Directive: Full Code DVT prophylaxis lovenox 40 daily Discharge planning: SNF Active Problems: Hyperglycemia Diabetic hyperosmolar non-ketotic state (HCC) Resolved Problems: * No resolved hospital problems. * Kylah David MD Neisha De Leon RN - 11/24/2020 11:43 AM [facility] [place] [facility] Office Coordinator called me to patients bedside at [...] on patient since it was called by medical secretary receptionist and Dr David will be at bedside [...] - 06/20/2019 10:09 AM EDT Progress Note [facility] Patient - Will Jacinto, Age - 53 y.o. - 1965 Room Number - [id number] [facility] - [id number] Date of Admission - 06/14/2019 1:21 PM [...] EDT ENDOCRINOLOGY PROGRESS NOTE Patient: Will Jacinto Unit/Bed:[id number] Date of : 1965 Admit date: 06/14/2019 [...] Intake/Output Summary (Last 24 hours) at 06/20/2019 08 Last data filed at 06/19/2019 1544 Gross per 24 hour Intake 1450 ml Output Net 1450 ml Physical Exam Constitutional: He is oriented to person, place, and time. He appears well- developed and well-nourished. HENT: Head: Normocephalic. Eyes: EOM are normal. Cardiovascular: Normal rate, regular rhythm and normal heart sounds. Pulmonary/Chest: Effort normal and breath sounds normal. Musculoskeletal: [place] at r AKA are intact Faint erythema [...] radiology, and other reports. I reviewed the UTILITY LINEMAN/resident's note and agree with the documented findings [...] per protocol. Noted likely DC back to [place]. Anticipated homegoing regimen: U-500 160-125-125 TID (given different diet at the [facility]). FU with Endocrinology outpatient - pt prefers closer to [place]. Time spent with patient over 51% total time 25 minutes which includes review of records, counseling, management, and coordination of care as documented in note. * Davie Frankel MD - 06/19/2019 11:56 AM EDT Hospitalist Progress Note 06/19/2019 11:57 AM [phone]: Please page me for patient care issues. [phone]: Please page [facility] night Hospitalist for any issues. Subjective: Admit Date: 06/14/2019 PCP: Jared Guzman MD Room#: [id number] Interval History: No new issues per pt [...] mg Subcutaneous Daily LABS: CBC: Recent Labs 06/17/19408 WBC 13.3* RBC 3.26* HGB 7.6* HCT 24.8* MCV 76.1* RDW 22.4* PLT 403 BMP: Recent Labs 06/17/19 04006/17/19 1310 06/18/1941606/19/19343 NA 134* -- 135 135 K 5.3* 5.4* 4.2 5.7* CL 98 -- 100 101 CO2 21* -- 26 24 BUN 25* -- 29* 33* CREATININE 0.94 -- 1.53* 1.67* GLUCOSE 399* -- 108* 180* CALCIUM 8.5 -- 8.7 9.0 ANIONGAP 14 -- 10 10 LIVER PROFILE: Recent Labs 06/17/19 04006/18/1941606/19/19 034 AST 34 48* 71* ALT 30 44 [...] Advance Directive: Full Code Discharge planning: to [facility] soon Davie Frankel MD Division of Hospitalist Medicine Inpatient Medical Services * Debbie Billingsley MD - 06/19/2019 9:46 AM EDT Progress Note [facility] Patient - Will Jacinto, Age - 53 y.o. - 1965 Room Number - [id number] [facility] [id number] Date of Admission - 06/14/2019 1:21 PM [...] w theirassessment and plan unless otherwise noted. Debbie [facility] 06/19/2019 2:08 PM * Elle Knutson, GARAGE DOOR OPENER INSTALLER - 06/19/2019 9:24 AM EDT Physical Therapy Facility/Department: [facility] TELE[facility] Daily Treatment Note NAME: Will Jacinto : 1965 Date of Service: 06/19/2019 Discharge Recommendations: Subacute/Penitentiary Facility Assessment Body structures, Functions, Activity limitations: [...] history that includes Abscess Drainage (Right, 09/09/2018); [place] tooth extraction; Dilation and curettage of uterus [...] x 2) Elle Knutson PTA * Linda Cameron OT - 06/19/2019 9:21 AM EDT Occupational Therapy Occupational Therapy Initial Assessment Date: 06/19/2019 Patient Name: iWll Jacinto : 1965 Date of Service: 06/19/2019 Discharge Recommendations: Subacute/Penitentiary Facility Assessment Performance deficits / Impairments: Decreased functional mobility ;Decreased ADL status;Decreased ROM;Decreased strength;Decreased safe awareness;Decreased cognition;Decreased endurance;Decreased balance;Decreased coordination Assessment: OT eval completed. Pt presents with above deficits limitng functional indep. Pt is a falls and safety risk. Recommend SNF upon discharge to maximize indep and safety with ADL and transfers. Prognosis: Fair Decision Making: Medium Complexity Exam: [facility] OT Education: OT Role;Plan of Care;Transfer Training;Orientation [...] (HCC), Hypertension, Morbidly obese (HCC), and Osteomyelitis ([facility]). has a past surgical history that includes Abscess Drainage (Right, 09/09/2018); [place] tooth extraction; Dilation and curettage of uterus [...] With: Other (comment) Type of Home: Facility([facility]) Home Layout: One level Home Access: Level entry Bathroom Shower/Tub: Walk-in shower, Shower chair with back Bathroom Toilet: Handicap height Bathroom Equipment: Grab bars in shower, Shower chair Bathroom Accessibility: Wheelchair accessible Home Equipment: 4 wheeled walker, Electric scooter, Wheelchair-manual Receives Help From: club car attendant ADL Assistance: Needs assistance Homemaking Assistance: (provided by facility) Homemaking Responsibilities: No Ambulation Assistance: Independent(has been using wc 3-4 years) Transfer Assistance: Independent Active Transit Authority Police Officer: No Patient's Transit Authority Police Officer Info: facility, [facility] transport Mode of Transportation: Bus, Van [...] Plan [facility]. Pt requires skill of 2 therapists for safety and positioning. Linda Cameron OTR/L * Kerri Morales MD - 06/19/2019 8:16 AM EDT Department of Internal Medicine Section of Endocrinology Resident Progress Note SUBJECTIVE: Admit date: 06/14/2019 Admitted w/: Right foot wound requiring AKA Original Endocrine Consult date: 06/15/19 OutPt Diesel Service Journeyman: None Lab Results Component Value Date LABA1C [...] Range: >60 mL/min 38.9 EGFR IF NonAfrican Greenlandic Latest Ref Range: >60 mL/min 32.1 Glucose [...] to be determined. Please page the on-call Diesel Service Journeyman if there arequestions regarding Endocrine DC recommendations. If there are any questions or concerns related to the info please page the web consultant independent beauty consultant directly. On-Call information can be found in the [facility] Directory. We appreciate the opportunity to participate [...] this progress note please page the oncall independent beauty consultant directly. On-Call information can be found in the [facility] Online Directory. We can also be reached by gDecide communication system. We appreciate the opportunity to [...] EDT Hospitalist Progress Note 06/18/2019 2:31 PM [phone]: Please page me for patient care issues. [phone]: Please page [facility] night Hospitalist for any issues. Subjective: Admit Date: 06/14/2019 PCP: Jared Guzman MD Room#: [id number] Interval History: Patient seen and examined No [...] of Hospitalist Medicine Inpatient Medical Services PAGER: [phone] * Allison Coleman, RD, LD - 06/18/2019 [...] he is still ordering & consuming meals. GARAGE DOOR OPENER INSTALLER, he was a resident at [facility]. At [place], he reports receiving ProStat (protein modular) and daily MVI to promote wound healing. Pt agreeable to trial Conor BID during admit. Wound care consult pending. NKFA. No difficulty chewing/ swallowing. Pt did not make eye contact throughout assessment, and primarily answered with "uh maryam." Pt declined diet education at this time. Recent A1c 10.0% (06/16/19). The pt's motivation toward dietary modification appears low at this time. Malnutrition Assessment: Malnutrition Status: No malnutrition Nutrition Risk Level: High Nutrient Needs: Estimated Daily Total Kcal: 1383-4200 (25-30 kcals/kg IBW) Estimated Daily Protein (g): [...] 380 lb (172.4 kg)(Per pt report ) [place] Body Wt: 122 lb (55.3 kg)(Adjusted IBW based on R AKA ), % [place] Body 309% Adjusted Body Wt: , body [...] - 06/18/2019 9:28 AM EDT Progress Note [facility] Patient - Will Jacnito, Age - 53 y.o. - 1965 Room Number - [id number] [facility] - [id number] [facility] # - [id number] Date of Admission - 06/14/2019 1:21 PM [...] Oral Nightly colistimethate (COLY-MYCIN) IVPB 1.69 mg/kg ([place]) Intravenous Q8H insulin regular 0-16 Units Subcutaneous [...] is being seen by wound care at [facility] already. Original Endocrine Consult date: 06/15/19 OutPt Diesel Service Journeyman: none Lab Results Component Value Date LABA1C [...] 5 % 100 mL IVPB, 1.69 mg/kg ([place]), Intravenous, Q8H insulin regular (HUMULIN R;NOVOLIN R) [...] to be determined. Please page the on-call Diesel Service Journeyman if there arequestions regarding Endocrine DC recommendations. If there are any questions or concerns related to the info in this progress note please page the oncall independent beauty consultant directly. On-Call information can be found in the [facility] Directory. We appreciate the opportunity to participate [...] Clemons MD - 06/18/2019 6:13 AM EDT [facility] TELEMET[facility] [address] [facility] [address] Dept: [phone] Loc: [phone] Orthopedic Progress Note Name: Will Jacinto Date:06/18/2019 Attending:MD Vonda Dumont. Dressing stayed on overnight. Objective Vitals: Vitals: 06/17/19 0028 06/17/19 0745 06/17/19 1450 06/17/192014 BP: 109/84 (!) 112/56 108/63 (!) 106/44 Pulse: 90 102 93 107 Resp: 18 16 Temp: 97.2 F (36.2 C) 98.2 [...] an outpatient in 2 weeks please call [phone] to make an appointment Will sign off-=call with questions * Jayson Hawthorne MD - 06/17/2019 2:43 PM EDT Progress Note [facility] Patient - Will Jacinto, Age - 53 y.o. - 1965 Room Number - [id number] [facility] - [id number] Date of Admission - 06/14/2019 1:21 PM [...] Oral Nightly colistimethate (COLY-MYCIN) IVPB 1.69 mg/kg ([place]) Intravenous Q8H insulin regular 0-16 Units Subcutaneous [...] midfoot with some midfoot Jayson Hawthorne MD [facility] 06/17/2019 2:44 PM * Crystal Mullins MD - 06/17/2019 1:15 PM EDT Hospitalist Progress Note 06/17/2019 1:16 PM [phone]: Please page me for patient care issues. [phone]: Please page [facility] night Hospitalist for any issues. Subjective: Admit Date: 06/14/2019 PCP: Jared Guzman MD Room#: [id number] Interval History: Patient seen and examined No [...] Oral Nightly colistimethate (COLY-MYCIN) IVPB 1.69 mg/kg ([place]) Intravenous Q8H insulin regular 0-16 Units Subcutaneous [...] of Hospitalist Medicine Inpatient Medical Services PAGER: [phone] * Sera Kraus, PT - 06/17/2019 10:32 AM EDT Physical Therapy Facility/Department: [facility] Initial Assessment NAME: Will Jacinto : 1965 Date of Service: 06/17/2019 Discharge Recommendations: Subacute/Penitentiary Facility Assessment Body structures, Functions, Activity limitations: [...] history that includes Abscess Drainage (Right, 09/09/2018); [place] tooth extraction; Dilation and curettage of uterus [...] With: Other (comment) Type of Home: Facility([facility]) Home Layout: One level Home Access: Level entry Bathroom Shower/Tub: Walk-in shower, Shower chair with back Bathroom Toilet: Handicap height Bathroom Equipment: Grab bars in shower, Shower chair Bathroom Accessibility: Wheelchair accessible Home Equipment: 4 wheeled walker, Electric scooter, Wheelchair-manual Receives Help From: club car attendant ADL Assistance: Needs assistance Homemaking Assistance: (provided by facility) Homemaking Responsibilities: No Ambulation Assistance: (non-ambulatory x3-4 years, uses ) Transfer Assistance: Independent Active Transit Authority Police Officer: No Patient's Transit Authority Police Officer Info: facility, [facility] transport Mode of Transportation: Bus, Van [...] AM-PAC Inpatient Mobility Raw Score : 6 (06/17/191031) AM-PAC Inpatient T-Scale Score : 23.55 (06/17/191031) Mobility Inpatient CMS 0-100% Score: 100 (06/17/191031) Mobility Inpatient CMS G-Code Modifier : CN [...] Plan of Care supervision is transferred to [facility] Rehab Department Physical Therapist. Goals and/or treatment plan was established in collaboration with patient/family/other representatives. Sera Kraus PT * Asuncion Garibay, DO - 06/17/2019 9:13 AM EDT Department of Internal Medicine Section of Endocrinology Attending Progress Note SUBJECTIVE: Admit date: 06/14/2019 Admitted w/: Chief Complaint Patient presents with Wound Check Patient sent over for evaluation for worsening leg infections, right lower leg is worse. he is being seen by wound care at [facility] already. Original Endocrine Consult date: 06/15/19 OutPt Diesel Service Journeyman: none Lab Results Component Value Date LABA1C [...] 5 % 100 mL IVPB, 1.69 mg/kg ([place]), Intravenous, Q8H insulin regular (HUMULIN R;NOVOLIN R) [...] to be determined. Please page the on-call Diesel Service Journeyman if there arequestions regarding Endocrine DC recommendations. If there are any questions or concerns related to the info in this progress note please page the oncall independent beauty consultant directly. On-Call information can be found in the [facility] Directory. We appreciate the opportunity to participate [...] Clemons MD - 06/17/2019 5:29 AM EDT [place] [address] [address] [place] [address] Dept: [phone] Loc: [phone] Orthopedic Progress Note Name: Will Jacinto Date:06/17/2019 Attending:MD Vonda Dumont JB. Dressing fell off during night. Unable [...] an outpatient in 2 weeks please call [phone] to make an appointment * Crystal Mullins MD - 06/16/2019 4:12 PM EDT Hospitalist Progress Note 06/16/2019 4:12 PM [phone]: Please page me for patient care issues. [phone]: Please page [facility] night Hospitalist for any issues. Subjective: Admit Date: 06/14/2019 PCP: Jared Guzman MD Room#: [id number] Interval History: Patient seen and examined No [...] Oral Nightly colistimethate (COLY-MYCIN) IVPB 1.69 mg/kg ([place]) Intravenous Q8H insulin regular 0-16 Units Subcutaneous TID AC sodium chloride flush 10 mL Intravenous 2 times per day enoxaparin 40 mg Subcutaneous Daily vancomycin 2,000 mg Intravenous Q12H LABS: CBC: Recent Labs 06/14/19 1456 06/15/19 04206/16/19 0358 06/16/19 0641 WBC 7.0 6.6 disregard* [...] PROT 6.4 6.5 -- PT/INR: Recent Labs 06/14/191939 PROTIME 10.9 INR 1.0 CARDIAC ENZYMES: No [...] of Hospitalist Medicine Inpatient Medical Services PAGER: [phone] * Asuncion Garibay DO - 06/16/2019 3:23 PM EDT Department of Internal Medicine Section of Endocrinology Attending Progress Note SUBJECTIVE: Admit date: 06/14/2019 Admitted w/: Chief Complaint Patient presents with Wound Check Patient sent over for evaluation for worsening leg infections, right lower leg is worse. he is being seen by wound care at [facility] already. Original Endocrine Consult date: 06/15/19 OutPt Diesel Service Journeyman: none Lab Results Component Value Date LABA1C [...] 5 % 100 mL IVPB, 1.69 mg/kg ([place]), Intravenous, Q8H insulin regular (HUMULIN R;NOVOLIN R) [...] his operating room procedure and returns to [place] is a lot of diet and we [...] to be determined. Please page the on-call Diesel Service Journeyman if there arequestions regarding Endocrine DC recommendations. If there are any questions or concerns related to the info in this progress note please page the oncall independent beauty consultant directly. On-Call information can be found in the [facility] Directory. We appreciate the opportunity to participate [...] Asuncion Garibay DO 1:14 PM 06/16/19 * Debbie Billingsley MD - 06/16/2019 12:25 PM EDT Progress Note [facility] Patient - Will Jacinto, Age - 53 y.o. - 1965 Room Number - [id number] Date of Admission - 06/14/2019 1:21 PM [...] Oral Nightly colistimethate (COLY-MYCIN) IVPB 1.69 mg/kg ([place]) Intravenous Q8H insulin regular 0-16 Units Subcutaneous [...] w theirassessment and plan unless otherwise noted. Debbie Nix [facility] 06/16/2019 2:58 PM [...] Cartagena MD - 06/16/2019 5:47 AM EDT [facility] H6 TELEMETRY [address] [place] [address] Dept: [phone] Loc: [phone] Orthopedic Progress Note Name: Will Jacinto Date:06/16/2019 Attending:MD Vonda DumontI. No events o/n. Patient prepared for OR today, expressed understanding once again and agreed that he needs an above knee amputation. States he has remained NPO. Denies other needs this AM. Objective Vitals: Vitals: 06/15/19 1920 06/15/19 2218 06/16/19 0242 06/16/19 0450 BP: 120/76 (!) 114/57 (!) 93/50 Pulse: 103 95 92 Resp: 18 18 Temp: 98.5 F (36.9 C) [...] Carey MD - 06/15/2019 6:32 AM EDT [facility] H[address] TELEMETRY [address] [place] [address] Dept: [phone] Loc: [phone] Orthopedic Progress Note Name: Will Jacinto Date:06/15/2019 Attending:Jayesh Jordan MD Subjective JB. No events o/n. Patient prepared for OR today, expressed understanding once again and agreed that he needs an above knee amputation. Objective Vitals: Vitals: 06/14/19 1343 06/14/19 1750 06/14/19 1833 BP: (!) 153/65 (!) 153/58 (!) 168/62 Pulse: 97 99 94 Resp: 18 Temp: 98.3 F (36.8 C) 98.4 [...] DO 9:02 PM 06/14/19 * Ginger Fuentes [facility] - 06/14/2019 7:32 PM EDT Infectious Diseases has been consulted and will manage Vancomycin at this time. Thank you for the consult. Pharmacy signing off for vancomycin dosing. Ginger Fuentes RPh Date: 06/14/19 Time: 7:32 PM documented in this encounter Hospital Course * Nabil Hill DO - 09/28/2020 10:05 AM EST Physician Discharge Summary Patient ID: Will Jacinto [id number] y.o. 1965 Admit date: 09/17/2020 Discharge [...] feel he is stable to return to [facility] on this current treatment regimen with smaller [...] transgender male, biologically female, presented from his intermediate after abdominal pain, out of control glucose readings and reported mental status change. However, EMS in the hospital reported that he was alert and oriented x3, however, he says that recently he has had increasing abdominal distention and distress and he noticed that his glucoses have been harder and harder to control. Pt was admitted to [facility]. Pt had dysfunctinal uterine bleeding and transferred to [facility] for Code Enforcement Supervisor eval. Also had ab pain and found to have ileus. Seen by GI and recommended reglan. Pt had BMs. abd pain better. Advance diet to GI soft Seen by Code Enforcement Supervisor and had hysteroscopy with biopsy done KUB [...] 08/23/2020 No results found for: PHART, PO2ART, FRS0IXR No results for input(s): INR in the [...] Radiology ACCESSION EXAM DATE/TIME PROCEDURE ORDERING PROVIDER [id number] 11/27/2020 08:28 EST CR Abdomen AP MD MARTIN KHALED CPT code 97893 Reason For Exam (CR Abdomen AP) ileus [...] Radiology ACCESSION EXAM DATE/TIME PROCEDURE ORDERING PROVIDER [id number] 11/25/2020 15:08 EST CR Abdomen AP Lorenzo STAPLETON MICHAEL CPT code 17300 Reason For Exam (CR Abdomen AP) abd [...] Radiology ACCESSION EXAM DATE/TIME PROCEDURE ORDERING PROVIDER [id number] 11/22/2020 18:30 EST CR Chest Portable [id number] NOLASCO CPT code 00970 Reason For Exam (CR Chest Portable) SOB [...] Tomography ACCESSION EXAM DATE/TIME PROCEDURE ORDERING PROVIDER [id number] 11/22/2020 19:[address] Abdomen/Pelvis w/ IV [id number] FARMER Contrast (IV Onl CPT code 53342 Q9967 Reason For Exam (CT Abdomen/Pelvis w/ [...] Ultrasound ACCESSION EXAM DATE/TIME PROCEDURE ORDERING PROVIDER [id number] 11/25/2020 10:38 EST US Transvaginal MD CRAMER DIANA CHRISTINE CPT code 91861 Reason For Exam (US Transvaginal) AUB Report [...] Will Jacinto "Maria Luisa" Home Medication Instructions JORDYN:[id number] Printed on:11/28/20 0911 Medication Information acetaminophen (TYLENOL) [...] g by mouth daily Consults: GI, cardiology, Code Enforcement Supervisor Disposition: Patient discharged in stable condition. Greater [...] TO GIIP CONSULT TO CARDIOLOGYIP CONSULT TO OXYGEN THERAPIST Surgeries/procedures Performed: Treatments: Discharge Plan/Disposition: Home Hospital/Incidental [...] U-500 KWIKPEN) 500 UNIT/ML SOPN concentrated injection [id number] units before breakfast, 110 units before lunch, [...] vaginal bleeding--pelvic US shows increased thickening of endometrium--INSURANCE CLAIMS REPRESENTATIVE recommends further acute eval by INSURANCE CLAIMS REPRESENTATIVE ONC--Dr Walsh has seen pt. Previously & recommended hysterectomy, which was postponed at that time due to other medical issues--blood sugar now controlled SIGNIFICANT DIAGNOSTIC STUDIES: Ct---pelvic US CONSULTANTS: INSURANCE CLAIMS REPRESENTATIVE--cardio RECOMMENDED NEXT STEPS: To [facility]--IMS & Dr Walsh (INSURANCE CLAIMS REPRESENTATIVE ONC) ---resume aspirin when bleeding issues resolved DISCHARGE MEDICATIONS: Ophelia Will M "Maria Luisa" Home Medication Instructions JORDYN:[id number] Printed on:11/25/20 0577 Medication Information acetaminophen (TYLENOL) 325 MG tablet [...] Complexity: follow up within 7-14 calendar days (38475) [] Severe Complexity: follow up within 7 calendar days (66479) FOLLOW UP TESTING, PENDING RESULTS OR REFERRALS AT TRANSITIONAL CARE VISIT: [] Yes [] No PENDING STUDIES: No DISPOSITION: Transfer to Acute Care Hospital FACILITY/HOME CARE AGENCY NAME: Follow up with Jared Guzman MD [address] [place] [address] [phone] INSTRUCTIONS TO MA/SW DISCHARGE TIME: SIGNED: ART STAPLETON MD 11/25/2020, 1:49 PM documented in this encounter Chief Complaint and Reason for Visit Chief Complaint JAIL LAB WOR K Chief Complaint JAIL LAB WOR K JAIL LAB WORK JAIL LAB WORK Chief Complaint JAIL LAB WOR K JAIL LAB WORK JAIL LAB WORK JAIL LAB WORK Chief Complaint JAIL LABWORK Chief Complaint JAIL LABWORK LABWORK Chief Complaint JAIL LABWORK LABWORK LABWORK Chief Complaint LABWORK JAIL LABWORK JAIL LAB WORK Chief Complaint JAIL LABWORK JAIL LAB WORK JAIL LABWORK Chief Complaint JAIL LABWORK LABWORK LABWORK LABWORK Chief Complaint LABWORK LABWORK JAIL LAB WORK LABWORK JAIL LABWORK Chief Complaint JAIL LAB WOR K LABWORK JAIL LABWORK LABWORK JAIL LAB WORK Chief Complaint LABWORK JAIL LABWORK LABWORK JAIL LAB WORK JAIL LAB WORK Chief Complaint JAIL LABWORK LABWORK JAIL LAB WORK JAIL LABWORK JAIL LAB WORK Chief Complaint LABWORK JAIL LAB WORK JAIL LABWORK JAIL LAB WORK LABWORK Chief Complaint LABWORK JAIL LAB WORK JAIL LABWORK JAIL LAB WORK JAIL LAB WORK LABWORK LABWORK Chief Complaint JAIL LAB WOR K JAIL LABWORK JAIL LAB WORK JAIL LAB WORK LABWORK LABWORK LABWORK LABWORK Chief Complaint JAIL LAB WOR K JAIL LABWORK JAIL LAB WORK JAIL LAB WORK LABWORK LABWORK LABWORK LABWORK LABWORK Chief Complaint Admit Date LABWORK September 22, 2024 5:00am LABWORK October 30, 2024 5:00am JAIL LAB WORK November 10, 2024 9:46am JAIL LAB WORK November 30, 2024 5:00am JAIL LAB WORK December 05, 2024 4:00am JAIL LAB WORK December 27 5:00am Chief Complaint Admit Date JAIL LAB WORK November 10, 2024 9:46am JAIL LAB WORK November 30, 2024 5:00am JAIL LAB WORK December 05, 2024 4:00am JAIL LAB WORK December 27 5:00am JAIL LAB WORK February 07, 2025 5: 00am Chief Complaint Admit Date JAIL LAB WORK December 27 5:00am JAIL LAB WORK February 07, 2025 5: 00am JAIL LAB WORK February 26, 2025 4 :00am Reason for Referral Specialty Diagnoses / Procedures Referred By Contac t Referred To Contact Oral Surgery Diagnoses Dental caries Jared Guzman N [address] [place] [address] [facility] ORAL SURGERY [address] [place] [address] Referral ID Status Reason Start Date Expiration Date V isits Requested Visits Authorized [id number] Authorized 01/26/2023 01/27/2024 3 3 Scheduling Instructions Please call the stationary engineer supervisor Clinic at [facility] at to schedule an appointment if one was not made for you today. Comments EXT #9, 12 Specialty Diagnoses / Procedures Referred By Contac t Referred To Contact Caridad Evans MD [address] [place] [address] Referral ID Status Reason Start Date Expiration Date V isits Requested Visits Authorized [id number] Pending Review 1 1 Specialty Diagnoses / Procedures Referred By Contac t Referred To Contact Radiology Diagnoses Nausea with vomiting, unspecified Procedures NM gastric emptying solid Elda Reaves (Kelley) [address] [facility] [place] [address] Referral ID Status Reason Start Date Expiration Date V isits Requested Visits Authorized [id number] Authorized 11/24/2023 11/23/2024 3 3 Referral ID Status Reason Start Date Expiration Date V isits Requested Visits Authorized [id number] Pending Review 11/24/2023 11/23/2024 3 3 Specialty Diagnoses / Procedures Referred By Contac t Referred To Contact Radiology Diagnoses Lung nodule Procedures CT chest wo IV contrast Richard, Herber, DIRECTOR WOMEN - YARD ATTENDANT [address] [place] [id number] Referral ID Status Reason Start Date Expiration Date V isits Requested Visits Authorized [id number] Authorized 02/11/2024 02/10/2025 1 1 Specialty Diagnoses / Procedures Referred By Contac t Referred To Contact Radiology Diagnoses Solitary pulmonary nodule Procedures CT chest wo IV contrast Richard, Herber, DIRECTOR WOMEN - YARD ATTENDANT [address] [place] [phone] Referral ID Status Reason Start Date Expiration Date V isits Requested Visits Authorized [id number] Pending Review 02/11/2024 02/10/2025 1 1 Additional Source Comments INFORMATION SOURCE (unrecogn ized section and content) DATE CREATED AUTHOR 05/13/2018 [facility] DATE CREATED AUTHOR AUTHOR'S ORGANIZ ATION 05/18/2018 [facility] DATE CREATED AUTHOR AUTHOR'S ORGANIZ ATION 01/09/2019 [facility] DATE CREATED AUTHOR AUTHOR'S ORGANIZ ATION 11/29/2020 [facility] DATE CREATED AUTHOR AUTHOR'S ORGANIZ ATION 09/25/2021 [facility] DATE CREATED AUTHOR AUTHOR'S ORGANIZ ATION 02/04/2022 [facility] DATE CREATED AUTHOR AUTHOR'S ORGANIZ ATION 11/23/2023 [facility] DATE CREATED AUTHOR AUTHOR'S ORGANIZ ATION 07/14/2025 [facility] DATE CREATED AUTHOR AUTHOR'S ORGANIZ ATION 07/15/2025 [facility] (unrecognized sect ion and content) No Status Records Found Reason for Visit (unrecogniz ed section and content) Reason Comments Leg Pain patient had right AK A last week and has had pain in RLE - intermediate sent for eval d/t bloodwork results Reason Comments Abdominal Pain Reason Comments Abdominal Pain Vaginal Bleeding Nausea Reason Comments Wound Check Patient sent over fo r evaluation for worsening leg infections, right lower leg is worse. he is being seen by wound care at [facility] already. Reason Comments Follow-up DM2 Reason Onset [...] pain, unspecified type Procedures . Nabil Hill, DO [place] [address] [facility] 2e Telemetry [address] [place] [address] Referral ID Status Reason Start Date Expiration Date Visits Re quested Visits Authorized [id number] 1 1 Reason Comments Chest Pain Vomiting Specialty Diagnoses / Procedures Referred By Contac t Referred To Contact Diagnoses Chest pain Chest pain, unspecified type Procedures . Nabil Hill, DO [address] [place] [address] [facility] 2e Telemetry [address] [place] [address] Reason Onset Date Comments Care Coordination 07/05/2023 ED Nuance Lung Nodule Reason Comments Nausea [facility] with nausea/vomiting x1 day. +MALCOLM. States that [...] . Nabil Hill, DO [address] [place] [address] [facility] Emergency Dept [address] [place] [address] Referral ID Status Reason Start Date Expiration Date Visits Re quested Visits Authorized [id number] 1 1 Reason Onset Date Comments Diabetes 08/30/2023 BGL Reason Onset Date Comments Diabetes 09/20/2023 BGL Specialty Diagnoses / Procedures Referred By Contac t Referred To Contact Diagnoses Hypoglycemia Procedures . Ricardo Spring MD [address] [address] [facility] Emergency Dept [address] [place] [phone] Referral ID Status Reason Start Date Expiration Date Visits Re quested Visits Authorized [id number] 1 1 Reason Comments Hypoglycemia Specialty Diagnoses / Procedures Referred By Contac t Referred To Contact Diagnoses Hypoglycemia Procedures . Ricardo Spring MD [address] [facility] [address] [place] [address] [facility] Emergency Dept [address] [place] [address] Reason Onset Date Comments Advice Only 11/09/2023 Reason Onset Date Comments Diabetes 11/23/2023 BGL Reason Comments Flu Symptoms Specialty Diagnoses / Procedures Referred By Contac t Referred To Contact Radiology Diagnoses Nausea with vomiting, unspecified Procedures NM gastric emptying solid Elda Reaves (Kelley) [address] [facility] [address] Referral ID Status Reason Start Date Expiration Date V isits Requested Visits Authorized [id number] Authorized 11/24/2023 11/23/2024 3 3 Reason Onset Date Comments Diabetes 12/28/2023 BGL Reason Comments Nausea Vomiting Pt arrived by EMS [facility] due to N/V for 1 month. Upon [...] BGL Reason Comments Hypoglycemia Patient reports from [facility] for low blood sugar. Facility states that it was 48. Patient was fed and EMS sugar was 76. On arrival to room BGM was 102. Reason Comments Hyperglycemia Pt is sent from ECF for low BGT. Pt reports he has [...] Abdominal Pain Pt presents to er [facility]. Pt presents with abd pain, diarrhea, chest pain. Pt presents aox4 speaking in full and complete sentences. Chest Pain Nausea Specialty Diagnoses / Procedures Referred By Contac t Referred To Contact Diagnoses Acute cholecystitis Procedures . Ezra Ackerman MD [address] [place] [address] Phone: tel: fax: [facility] Cardiac Progressive Care Unit PCU [address]E [address] [place] [address] Phone: tel: Referral ID Status Reason Start Date Expiration Date Visits Re quested Visits Authorized [id number] 1 1 Reason Onset Date Comments Diabetes [...] of gallbladder without cholecystitis without obstruction Procedures CA OFFICE/OUTPATIENT NEW HIGH MDM 60 MINUTES Rosy Espinosa, DIRECTOR WOMEN - YARD ATTENDANT [address] [place] [address] Phone: tel: fax:[phone] [facility] Gastroenterology [facility] [address] [place] [address] Phone: tel: fax: Referral ID Status Reason Start Date Expiration Date Visits Requested Visits Authorized [id number] Pending Review Specialty Services Required 12/01/2024 12/01/2025 1 1 Reason Onset Date Comments Diabetes 12/20/2024 BGL Reason Comments Hospital Follow-up Diabetes Mellitus Hyperglycemia Reason Onset Date Comments Other 01/01/2025 Lab results/BGL Reason Onset Date Comments Diabetes 01/15/2025 BGL Reason Onset Date Comments Diabetes 01/29/2025 BGL Reason Comments New Patient Dr. Guzman/ venous insufficiency, arterial occlusion? 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) Procedures CA OFFICE/OUTPATIENT NEW MODERATE MDM 45 MINUTES Jared Guzman [address] [place] [address] Phone: tel: fax: [facility] [address] [place] [address] Phone: tel: fax: Referral ID Status Reason Start Date Expiration Date Visits Requested Visits Authorized [id number] Pending Review Eval and Treat 01/24/2025 01/24/2026 [...] Inactive Member Role Status Dates Raj LEON, UTILITY LINEMAN-C Attending Provider Active Team Status: Inactive Member Role Status Dates Jared Guzman Attending Provider Active Rotor Casting Machine Operator Relationship Specialty Start Date End Date Jared Guzman [address] [facility] [address] [place] [phone] PCP - General 04/25/19 Rotor Casting Machine Operator Relationship Specialty Start Date End Date Jared Guzman [address] [place] [phone] PCP - General 04/25/19 Rotor Casting Machine Operator Relationship Specialty Start Date End Date Jared Guzman [address] [place] [address] PCP - General 04/25/19 Rotor Casting Machine Operator Relationship Specialty Start Date End Date Jared Guzman [address] [place] [address] PCP - General 04/25/19 Rotor Casting Machine Operator Relationship Specialty Start Date End Date Jared Guzman [address] [place] [phone] PCP - General 04/25/19 Rotor Casting Machine Operator Relationship Specialty Start Date End Date Jared Guzman [address] [place] [phone] PCP - General 04/25/19 Rotor Casting Machine Operator Relationship Specialty Start Date End Date Jared Guzman [address] [place] [address] PCP - General 04/25/19 Rotor Casting Machine Operator Relationship Specialty Start Date End Date Jared Guzman [address] [place] [address] PCP - General 04/25/19 Rotor Casting Machine Operator Relationship Specialty Start Date End Date Jared Guzman [address] [place] [address] PCP - General 04/25/19 Rotor Casting Machine Operator Relationship Specialty Start Date End Date Jared Guzman [address] [place] [address] PCP - General 04/25/19 Rotor Casting Machine Operator Relationship Specialty Start Date End Date Jared Guzman [address] [place] [address] PCP - General 04/25/19 Rotor Casting Machine Operator Relationship Specialty Start Date End Date Jared Guzman [address] [place] [address] PCP - General 04/25/19 Rotor Casting Machine Operator Relationship Specialty Start Date End Date Jared Guzman [address] [place] [phone] PCP - General 04/25/19 Rotor Casting Machine Operator Relationship Specialty Start Date End Date Jared Guzman [address] [place] [phone] PCP - General 04/25/19 Rotor Casting Machine Operator Relationship Specialty Start Date End Date Jared Guzman [address] [place] [phone] PCP - General 04/25/19 Rotor Casting Machine Operator Relationship Specialty Start Date End Date Jared Guzman [address] [place] [address] PCP - General 04/25/19 Rotor Casting Machine Operator Relationship Specialty Start Date End Date Jared Guzman [address] [place] [phone] PCP - General 04/25/19 Rotor Casting Machine Operator Relationship Specialty Start Date End Date Jared Guzman [address] [place] [address] PCP - General 04/25/19 Rotor Casting Machine Operator Relationship Specialty Start Date End Date Jared Guzman [address] [place] [address] PCP - General 04/25/19 Rotor Casting Machine Operator Relationship Specialty Start Date End Date Jared Guzman [address] [place] [phone] PCP - General 04/25/19 Rotor Casting Machine Operator Relationship Specialty Start Date End Date Jared Guzman [address] [place] [phone] PCP - General 04/25/19 Rotor Casting Machine Operator Relationship Specialty Start Date End Date Jared Guzman [address] [place] [address] PCP - General 04/25/19 Rotor Casting Machine Operator Relationship Specialty Start Date End Date Jared Guzman [address] [place] [phone] PCP - General 04/25/19 Rotor Casting Machine Operator Relationship Specialty Start Date End Date Jared Guzman [address] [place] [phone] PCP - General 04/25/19 Rotor Casting Machine Operator Relationship Specialty Start Date End Date Jared Guzman [address] [place] [address] PCP - General 04/25/19 Rotor Casting Machine Operator Relationship Specialty Start Date End Date Jared Guzman [address] [place] [address] PCP - General 04/25/19 Rotor Casting Machine Operator Relationship Specialty Start Date End Date Jared Guzman [address] [place] [address] PCP - General 04/25/19 Rotor Casting Machine Operator Relationship Specialty Start Date End Date Jared Guzman [address] [place] [address] PCP - General 04/25/19 Rotor Casting Machine Operator Relationship Specialty Start Date End Date Jared Guzman [address] [place] [address] PCP - General 04/25/19 Rotor Casting Machine Operator Relationship Specialty Start Date End Date Jared Guzman [address] [place] [address] PCP - General 04/25/19 Rotor Casting Machine Operator Relationship Specialty Start Date End Date Jared Guzman [address] [place] [address] PCP - General 04/25/19 Rotor Casting Machine Operator Relationship Specialty Start Date End Date Jared Guzman [address] [place] [address] PCP - General 04/25/19 Rotor Casting Machine Operator Relationship Specialty Start Date End Date Jared Guzman [address] [place] [phone] PCP - General 04/25/19 Rotor Casting Machine Operator Relationship Specialty Start Date End Date Jared Guzman [address] [place] [phone] PCP - General 04/25/19 Rotor Casting Machine Operator Relationship Specialty Start Date End Date Jared Guzman [address] [place], [place] [phone] PCP - General 04/25/19 Rotor Casting Machine Operator Relationship Specialty Start Date End Date Jared Guzman [address] [place] [address] PCP - General 04/25/19 Rotor Casting Machine Operator Relationship Specialty Start Date End Date Jared Guzman [address] [place], [place] [phone] PCP - General 04/25/19 Rotor Casting Machine Operator Relationship Specialty Start Date End Date Jared Guzman [address] [place] [address] PCP - General 04/25/19 Rotor Casting Machine Operator Relationship Specialty Start Date End Date Jared Guzman [address] [place] [phone] PCP - General 04/25/19 Rotor Casting Machine Operator Relationship Specialty Start Date End Date Jared Guzman [address] [place] [phone] PCP - General 04/25/19 Rotor Casting Machine Operator Relationship Specialty Start Date End Date Jared Guzman [address] [place] [phone] PCP - General 04/25/19 Rotor Casting Machine Operator Relationship Specialty Start Date End Date Jared Guzman [address] [place] [address] PCP - General 04/25/19 Rotor Casting Machine Operator Relationship Specialty Start Date End Date Jared Guzman [address] [place] [address] PCP - General 04/25/19 Rotor Casting Machine Operator Relationship Specialty Start Date End Date Jared Guzman [address] [place] [address] PCP - General 04/25/19 [facility] Other Attendant 01/30/25 Rotor Casting Machine Operator Relationship Specialty Start Date End Date Jared Guzman [address] [place] [address] PCP - General 04/25/19 Alejandro Mandel APRN - CNP [address] [place] [phone] Nurse Practitioner Nurse Practitioner 02/01/25 [facility] Other Attendant 01/30/25 Team Status: Inactive Member [...] December 05, 2024 End: December 05, 2024 Rotor Casting Machine Operator Relationship Specialty Start Date End Date Jared Guzman [address] [place] [phone] PCP - General 04/25/19 Alejandro Mandel APRN - KRANTHI [address] [facility] [address] [place] [phone] Nurse Practitioner Nurse Practitioner 02/01/25 [facility] Other Attendant 01/30/25 Rotor Casting Machine Operator Relationship Specialty Start Date End Date Jared Guzman [address] [place] [address] PCP - General 04/25/19 Alejandro Mandel APRN - YARD ATTENDANT [address] [place], [place] [id number] Nurse Practitioner Nurse Practitioner 02/01/25 [facility] Other Attendant 01/30/25 Rotor Casting Machine Operator Relationship Specialty Start Date End Date Jared Guzman [address] [place] [address] PCP - General 04/25/19 Alejandro Mandel APRN - YARD ATTENDANT [address] [place] [address] Nurse Practitioner Nurse Practitioner 02/01/25 [facility] Other Attendant 01/30/25 Team Status: Inactive Member Role Status Dates Jared LEON Attending Provider Active Sta rt: February 07, 2025 End: February 07, 2025 Team Status: Active Member Role Status Dates Jared LEON Attending Provider Active Sta rt: February 26, 2025 Rotor Casting Machine Operator Relationship Specialty Start Date End Date Jared Guzman [address] [place] [phone] PCP - General 04/25/19 Alejandro Mandel DIRECTOR WOMEN - YARD ATTENDANT [address] [place] [phone] Nurse Practitioner Nurse Practitioner 02/01/25 [facility] Other Attendant 01/30/25 Team Status: Inactive Member Role Status Dates Jared LEON Attending Provider Active Sta rt: February 26, 2025 End: February 26, 2025 Jared LEON Referring Provider Active Sta rt: February 26, 2025 End: February 26, 2025 Rotor Casting Machine Operator Relationship Specialty Start Date End Date Jared Guzman [address] [place] [address] PCP - General 04/25/19 Alejandro Mandel APRN - CNP [address] [place] [phone] Nurse Practitioner Nurse Practitioner 02/01/25 [facility] Other Attendant 01/30/25 Rotor Casting Machine Operator Relationship Specialty Start Date End Date Jared Guzman [address] [place] [address] PCP - General 04/25/19 Alejandro Mandel APRN - YARD ATTENDANT [address] [place] [address] [address] [place] [phone] Nurse Practitioner Nurse Practitioner 02/01/25 [facility] Other Attendant 01/30/25 Rotor Casting Machine Operator Relationship Specialty Start Date End Date Jared Guzman [address] [place] [address] PCP - General 04/25/19 Alejandro Mandel APRN - YARD ATTENDANT [address] [place] [phone] Nurse Practitioner Nurse Practitioner 02/01/25 [facility] Other Attendant 01/30/25 Rotor Casting Machine Operator Relationship Specialty Start Date End Date Jared Guzman [address] [place] [phone] PCP - General 04/25/19 Alejandro Mandel DIRECTOR WOMEN - YARD ATTENDANT [address] [place] [address] Nurse Practitioner Nurse Practitioner 02/01/25 [facility] Other Attendant 01/30/25 Rotor Casting Machine Operator Relationship Specialty Start Date End Date Jared Guzman [address] [place] [address] PCP - General 04/25/19 Alejandro Mandel APRN - YARD ATTENDANT [address] [place] [address] Nurse Practitioner Nurse Practitioner 02/01/25 [facility] Other Attendant 01/30/25 Rotor Casting Machine Operator Relationship Specialty Start Date End Date Jared Guzman [address] [place] [address] PCP - General 04/25/19 Alejandro Mandel APRN - YARD ATTENDANT [address] [place] [phone] Nurse Practitioner Nurse Practitioner 02/01/25 [facility] Other Attendant 01/30/25 Rotor Casting Machine Operator Relationship Specialty Start Date End Date Jared Guzman [address] [place] [address] PCP - General 04/25/19 Alejandro Mandel APRN - YARD ATTENDANT [address] [place] [address] Nurse Practitioner Nurse Practitioner 02/01/25 [facility] Other Attendant 01/30/25 Rotor Casting Machine Operator Relationship Specialty Start Date End Date Jared Guzman [address] [place] [address] PCP - General 04/25/19 Alejandro Mandel APRN - KRANTHI [address] [place] [phone] Nurse Practitioner Nurse Practitioner 02/01/25 [facility] Other Attendant 01/30/25 Rotor Casting Machine Operator Relationship Specialty Start Date End Date Jared Guzman [address] [place] [address] PCP - General 04/25/19 Alejandro Mandel APRN - CNP [address] [address] [place] [phone] Nurse Practitioner Nurse Practitioner 02/01/25 [facility] Other Attendant 01/30/25 Scheduled Active [...] Use: Prophylaxis-DVT/PE, Indications: Prophylaxis of Venous Thromboembolism 0722 (Not Given - Provider: Suzanne Sen RN - Reason: Other) 0854 (Given - Provider: Suzanne Sen RN) 0846 (Given - Provider: David Lui, PASTORA) FLUoxetine (PROzac) capsule 40 mg 40 mg, Oral, Daily, First dose on Wed06/28/23 at 0900 0723 (Not Given - Provider: Suzanne Sen RN - Reason: NPO) 0859 (Given - Provider: Suzanne Sen RN) 0846 (Given - Provider: David Lui, PASTORA) gabapentin (Neurontin) capsule 100 mg 100 mg, Oral, 2 times daily, First dose on Wed06/28/23 at 0900 0724 (Not Given - Provider: Suzanne Sen RN - Reason: NPO)2018 (Given - Provider: Margo Alexis RN) 0900 (Given - Provider: Suzanne Sen RN)2129 (Given - Provider: Shaneka Robertson RN) 0846 (Given - Provider: David Lui RN) Insulin Lispro (Humalog) injection 0-18 Units (CANCELED) [...] at 2100 2029 (Given - Provider: Margo Alexis, PASTORA) insulin regular (HumuLIN R U-500) CONCENTRATED injection [...] David Lui RN)1326 (Given - Provider: David Lui, PASTORA) lisinopril tablet 40 mg 40 mg, Oral, Every 24 hours, First dose on Wed06/28/23 at 0900 0717 (Not Given - Provider: Suzanne Sen RN - Reason: NPO) 0859 (Given - Provider: Suzanne Sen RN) 0846 (Given - Provider: David Lui RN) megestrol (Megace) tablet 20 mg 20 mg, Oral, 2 times daily, First dose on Wed06/28/23 at 0900, HAZARDOUS - Handle with care 0716 (Not Given - Provider: Suzanne Sen RN - Reason: NPO)2019 (Given - Provider: Margo Alexis RN) 0915 (Given - Provider: Suzanne Sen RN)2143 (Given - Provider: Shaneka Robertson RN) 0852 (Given - Provider: David Lui RN) metoclopramide (Reglan) tablet 10 mg 10 mg, Oral, 4 times daily, First dose on Wed06/28/23 at 0900 0717 (Not Given - Provider: Suzanne Sen RN - Reason: NPO)1101 (Not Given - Provider: Suzanne Sen RN - Reason: NPO)1546 (Given - Provider: Suzanne Sen RN)2018 (Given - Provider: Margo Alexis RN) 0900 [...] NPO)2017 (Given - Provider: Margo Alexis RN) 09 (Given - Provider: Suzanne Sen RN)2129 (Given - Provider: Shaneka Robertson RN) 0846 (Given - Provider: David Lui RN) miconazole (Micotin) 2 % powder Topical, 2 times daily, First dose on Wed06/28/23 at 0900 0718 (Not Given - Provider: Suzanne Sen RN - Reason: Other)2032 (Given - Provider: Margo Alexis RN) 09 (Given - Provider: Suzanne Sen RN)2143 (Given - Provider: Shaneka Robertson RN) 09 (Given - Provider: David Lui RN) pantoprazole (ProtoNix) EC tablet 40 mg 40 mg, Oral, Daily before breakfast, First dose on Wed06/28/23 at 0900, Do not crush, chew, or split. 0700 (Not Given - Provider: Jackson Lopez RN - Reason: NPO) 0510 (Given - Provider: Margo Alexis RN) 0628 (Given - Provider: Shaneka Robertson RN) polyethylene glycol (PEG) 3350 (Miralax) packet 17 g 17 g, Oral, Daily, First dose on Wed06/28/23 at 0900 0724 (Not Given - Provider: Suzanne Sen RN - Reason: NPO) 0859 (Given - Provider: Suzanne Sen RN) 0846 (Given - Provider: David Lui RN) potassium chloride (Klor-Con) packet 20 mEq [...] 0846 (Given - Provider: David Lui RN) Continuous Medication Order 06/29/2023 06/30/2023 07/01/2023 sodium chloride 0.9 % infusion 75 mL/hr, IntraVENous, Continuous, Starting on Wed06/28/23 at 0915 2324 (Rate/Dose Verify - Provider: Margo Alexis RN)2325 (Rate/Dose Verify - Provider: Margo Alexis RN) 0156 (Rate/Dose Verify - Provider: Margo Alexis RN)0403 (Rate/Dose Verify - Provider: Margo Alexis RN)0511 (New Bag - Provider: Margo Alexis RN)2138 (New Bag - Provider: Shaneka Robertson RN) [...] mg from all sources in 24 hours. 0902 (See Alternative - Provider: Suzanne Sen RN) acetaminophen (Tylenol) tablet 650 mg(Linked Group 1) 650 mg, Oral, Every 6 hours PRN, mild pain (1-3), fever, For temp greater than 100.4 F (38 C), Starting on Wed06/28/23 at 0846, Maximum dose of acetaminophen is 4000 mg from all sources in 24 hours. 0902 (Given - Provider: Suzanne Sen RN) dextrose [...] administering. 2018 (Given - Provider: Margo Alexis, PASTORA) polyethylene glycol (PEG) 3350 (Miralax) packet [...] tolerate po. 2216 (Given - Provider: Margo Alexis, PASTORA) 0510 (Given - Provider: Margo Alexis RN) [...] mg (COMPLETED) 15 mg, IntraVENous, Once, On Wed08/08/23 at 0850, For 1 dose 0902 (Given [...] mg (COMPLETED) 4 mg, IntraVENous, Once, On 08/08/23 at 0645, For 1 dose 0652 (Given - Provid er: Tanya Contreras RN) sodium chloride 0.9 % bolus 1,000 mL (COMPLETED) 1,000 mL, IntraVENous, at 1,000 mL/hr, Administer over 1 Hours, Once, On 08/08/23 at 0645, For 1 dose 0653 (New Bag - Prov ider: Tanya Contreras RN)0753 (Stopped - Provider: Karlos Garcia RN) sodium chloride 0.9 % bolus 1,000 mL (COMPLETED) 1,000 mL, IntraVENous, at 1,000 mL/hr, Administer over 1 Hours, Once, On 08/08/23 at 0850, For 1 dose 0850 (New [...] Barahona LPN)1500 (Not Given - Provider: Kota Luque, PASTORA - Reason: Other) ARIPiprazole (Abilify) tablet 10 mg 10 mg, Oral, Daily, First dose on Wed08/18/23 at 0900 0828 (Given - Provider: Olimpia Mustafa RN) 0940 (Given - Provider: Kota Luque, PASTORA) aspirin EC tablet 81 mg 81 mg, Oral, Daily, First dose on Wed08/18/23 at 0900, Do not crush, chew, or split. 0828 (Given - Provider: Olimpia Mustafa, PASTORA) 0940 (Given - Provider: Kota Luque, PASTORA) atorvastatin (Lipitor) tablet 10 mg 10 mg, Oral, Daily, First dose on Wed08/18/23 at 0900 0828 (Given - Provider: Olimpia Mustafa RN) 0940 (Given - Provider: Kota Luque, PASTORA) cefTRIAXone (Rocephin) 1,000 mg in sodium chloride 0.9 % 50 mL IVPB Mini-Bag Plus (COMPLETED) 1,000 mg, IntraVENous, at 100 mL/hr, Administer over 30 Minutes, Once, On Wed08/17/23 at 2020, For 1 dose, Mini-Bag Plus bag, Suspected Indication (Select all that apply): Urinary Tract Infection 2143 (New Bag - Provider: Anne Krueger, PASTORA)221 (Stopped - Provider: Anne Krueger RN) clotrimazole (Lotrimin) 1 % cream Topical, 2 times daily, First dose on Wed08/18/23 at 0955, Apply to L foot and between toes 1-2x/day 0955 (Canceled Entry - Provider: Automatic Discharge Provider - Comment: Automatically canceled at discontinue of medication order)2126 (Given - Provider: Ioana Barahona LPN) 0947 (Given - Provider: Kota Luque, PASTORA)2100 (Canceled Entry - Provider: Automatic Discharge Provider [...] 0940 (Given - Provider: Kota Luque, PASTORA) enoxaparin (Lovenox) syringe 30 mg 30 mg, [...] Alonso RN) 0940 (Given - Provider: Kota Luque, PASTORA) FLUoxetine (PROzac) capsule 40 mg 40 mg, Oral, Daily, First dose on Wed08/18/23 at 0900 0828 (Given - Provider: Olimpia Mustafa RN) 0940 (Given - Provider: Kota Luque, PASTORA) gabapentin (Neurontin) capsule 100 mg 100 mg, [...] call endocrine 1242 (Given - Provider: Flor Alonso RN)1630 (Given - Provider: Bucky Killian RN) 0940 (Given - Provider: Kota Luque, PASTORA)1225 (Given - Provider: Kota Luque, PASTORA)1641 (Given - Provider: Kota Luque, PASTORA) Insulin Lispro (Humalog) injection 15 Units (COMPLETED) [...] Kota Luque RN)1228 (Given - Provider: Kota Luque, PASTORA) insulin regular (HumuLIN R U-500) CONCENTRATED injection [...] 1342 (Given - Provider: Hebert Hill RN) lisinopril tablet 40 mg 40 mg, [...] Figueroa RN) 0828 (Given - Provider: Olimpia Mustfaa RN)1300 (Not Given - Provider: Bucky Killian RN - Reason: Other - Comment: was not on the floor)1629 (Given - Provider: Bucky Killian RN)1957 (Given - Provider: Ioana Barahona LPN) 0940 (Given - Provider: Kota Luque, PASTORA)1225 (Given - Provider: Kota Luque, PASTORA)1641 (Given - Provider: Kota Luque RN)2100 [...] Hebert Hill, PASTORA)1521 (Stopped - Provider: Hebert Hill, PASTORA) PRN Medication Order 08/17/2023 08/18/2023 08/19/2023 acetaminophen [...] For 1 dose 1506 (Given - Provider: Ana Prince ARRT) ondansetron (Zofran) injection 4 mg(Linked Group 2) [...] Killian RN) 0938 (Given - Provider: Kota Luque, PASTORA) ondansetron ODT (Zofran-ODT) disintegrating tablet 4 mg(Linked [...] RN) 0938 (See Alternative - Provider: Kota Luque, PASTORA) polyethylene glycol (PEG) 3350 (Miralax) packet [...] First dose on Gabi 10/07/23 at 1700 1623 (Given - Provider: Joyce [...] at 2100 2046 (Given - Provider: Lashawn Chinchilla RN) 2007 [...] 15 (Given - Provider: Gricelda Harding RN) enoxaparin (Lovenox) syringe 30 mg 30 mg, SubCUTAneous, Every 12 hours scheduled (2 times per day), First dose on Wed10/07/23 at 2100, Indication of Use: Prophylaxis-DVT/PE 0944 (Given - Provider: Joyce Moore LPN)2044 [...] 0915 (Given - Provider: Gricelda Harding RN) gabapentin (Neurontin) capsule 100 mg 100 mg, Oral, 2 times daily, First dose on Wed10/07/23 at 2100 0944 (Given - Provider: Joyce Moore LPN)2045 (Given - Provider: Lashawn Chinchilla RN) 0915 (Given - Provider: Gricelda Harding RN)2007 (Given - Provider: Lashawn Chinchilla RN) heparin flush injection 250 Units 250 Units, IntraCATHeter, Every 12 hours, First dose on Wed10/12/23 at 1515, Each lumen. Do NOT administer to lumens with continuous fluids currently infusing. Line Care. Use 10 mL or larger syringe. 0332 (Given - Provider: Roz Su RN)1511 (Given - Provider: Tanya Walker RN) 0405 (Given - Provider: Lashawn Chinchilla RN)1515 (Not Given - Provider: Gricelda Harding RN [...] last modification) on Gabi 10/14/23 at 2100 2045 (Given - Provider: Lashawn Chinchilla RN) insulin [...] SubCUTAneous, Daily before breakfast, First dose on Wed10/17/23 at 0700, Note High CONCENTRATION: 500 units/mL, Did you verify the patient is taking U-500 insulin? With whom? Yes, Patient, How does the patient measure their dose of U-500 insulin at home? Insulin pen lisinopril tablet 40 mg 40 mg, Oral, Daily, First dose on Wed10/10/23 at 1745, On hold since Wed10/11/2023 at 1823 until manually unheld 0900 (Dose Auto Held - Provider: Marcio Armando MD) 0900 (Dose Auto Held - Provider: Marcio Armando MD) 0213 (Unheld by provider - Provider: Automatic Discharge Provider) megestrol (Megace) tablet 20 mg 20 mg, Oral, 2 times daily, First dose on Gabi 10/07/23 at 2100, HAZARDOUS - Handle with care 0944 (Given - Provider: Joyce Moore LPN)2045 (Given - Provider: Lashawn Chinchilla RN) 913 (Given - Provider: Gricelda Harding RN)2124 (Given [...] 0619 (Given - Provider: Roz Su RN) 19 (Given - Provider: Lashawn Chinchilla RN) polyethylene glycol (PEG) 3350 (Miralax) packet 17 g 17 g, Oral, Daily, First dose on Gabi 10/07/23 at 1900 0943 (Given - Provider: Joyce [...] Roz Su RN)1512 (Given - Provider: Tanya Walker, RN) 0405 (Given - Provider: Lashawn Chinchilla, PASTORA)1719 (Given - Provider: Gricelda Harding RN) PRN [...] is given, Starting on Wed10/14/23 at 1557 dextrose 5 % infusion 100 mL/hr, IntraVENous, PRN, Blood sugar less than 70mg/dL, Starting on Wed10/07/23 at 1656, Start infusion following administration of [...] mg (COMPLETED) 1,000 mg, Oral, Once, On Wed12/09/23 at 0545, For 1 dose, Maximum dose of acetaminophen is 4000 mg from all sources in 24 hours. 0545 (Given - Provid er: Nicci Kirk RN) ondansetron ODT (Zofran-ODT) disintegrating tablet 4 mg (COMPLETED) 4 mg, Oral, Once, On Wed12/09/23 at 0605, For 1 dose 0605 (Given - Provid er: Nicci Kirk RN) sodium chloride 0.9 % bolus 1,000 mL (COMPLETED) 1,000 mL, IntraVENous, at 1,000 mL/hr, Administer over 1 Hours, Once, On Wed12/09/23 at 0715, For 1 dose 0752 (New [...] Low Blood Sugar, Starting on Wed12/29/23 at 003, Blood glucose less than 70 mg/dL and [...] mL/hr, Administer over 30 Minutes, Once, On 01/22/24 at 0540, For 1 dose, Mini-Bag Plus [...] meals, First dose on Gabi 10/19/24 at 0800 0920 (Given - Provider: Morenita [...] Oral, Daily with breakfast, First dose on Gabi 10/19/24 at 0800 0918 (Given - Provider: Morenita Hess RN) 1026 (Given - Provider: Ezio Dunlap RN) 0821 (Self Administered Via Pump - Provider: Ezio Dunlap RN) FLUoxetine (PROzac) capsule 40 mg 40 mg, Oral, Daily, First dose on Gabi 24 at 0900 0920 (Given - Provider: Morenita Hess RN) 1021 (Given - Provider: Ezio Dunlap RN) 0821 (Self Administered Via Pump - Provider: Ezio Dunlap RN) gabapentin (Neurontin) capsule 100 mg 100 mg, Oral, 2 times daily, First dose on Wed10/18/24 at 2115 0920 (Given - Provider: Morenita Hess RN)2108 (Given - Provider: Gill Edmonds RN) 1020 (Given - Provider: Ezio Dunlap RN)2010 (Given - Provider: Gill Edmonds RN) 0821 (Self Administered Via Pump - Provider: Ezio Dunlap RN) hydrALAZINE (Apresoline) tablet 25 mg 25 mg, Oral, 3 times daily, First dose on Wed10/19/24 at 0900 0920 (Given - Provider: Morenita Hess RN)1425 (Given - Provider: Morenita Hess RN)2108 (Given - Provider: Gill Edmonds RN) 1020 (Given - Provider: Ezio Dunlap RN)145 (Given - Provider: Ezio Dunlap RN)2010 (Given - Provider: Gill Edmonds RN) 08 (Self Administered Via Pump - Provider: Ezio Dunlap RN)1400 (Canceled Entry - Provider: Automatic Discharge Provider - Comment: Automatically canceled at discontinue of medication order) influenza vaccine tiss-cult subunt (Flucelvax) STANDARD-DOSE injection 0.5 mL 0.5 mL, IntraMUSCular, Prior to discharge, Starting on Wed10/19/24 at 0900, For 1 dose insulin glargine (Lantus) injection 44 Units 44 Units, SubCUTAneous, 2 times daily, First dose (after last modification) on Wed10/19/24 at 2100 0918 (Given - Provider: Morenita [...] Morenita Hess RN)2122 (Given - Provider: Gill Edmonds RN) 1027 (Given - Provider: Ezio Dunlap RN)2015 (Given [...] RN)2109 (Given - Provider: Gill Edmonds RN) 1028 (Given - Provider: Ezio Dunlap RN)2016 (Given - Provider: Gill Edmonds RN) 0822 (Self Administered Via Pump - Provider: Ezio Dunlap RN) pantoprazole (ProtoNix) 40 mg in sodium chloride (PF) 0.9 % 10 mL injection 40 mg, IntraVENous, Administer over 2 Minutes, 2 times daily, First dose on Gabi 24 at 0600, Reconstitute with 10 ml NS. [...] 2115 0900 (Given - Provider: Morenita Hess RN)2100 (Not Given - Provider: Gill Edmonds RN - Reason: IV Fluids Infusing) 0900 (Given - Provider: Ezio Dunlap RN)2016 (Given - Provider: Gill Edmonds RN) 0822 (Self Administered Via Pump - Provider: Ezio Dunlap RN) torsemide (Demadex) tablet 10 mg 10 mg, Oral, Daily, First dose on Gabi 10/19/24 at 0900 0807 (Unheld by provider - Provider: Álvaro Thomas MD)0920 (Given - Provider: Morenita Hess RN) 1021 [...] mg from all sources in 24 hours. 08 (Self Administe red Via Pump - Provider: [...] sedation for opioid reversal - MUST notify web consultant provider immediately after first dose, may give [...] interruptions/ long duration, Starting on Wed10/18/24 at 2111, For piggyback infusion, administer at same rate [...] Tract Infection 2250 (Given - Provider: Nicolle Frazier, PASTORA) ondansetron (Zofran) injection 4 mg (COMPLETED) 4 mg, IntraVENous, Once, On Wed07/10/25 at 1720, For 1 dose 183 (Given - Provider: Maria Luisa Palmer RN) sodium chloride 0.9 % bolus 1,000 mL (COMPLETED) 1,000 mL, IntraVENous, at 1,000 mL/hr, Administer over 1 Hours, Once, On Wed07/10/25 at 1720, For 1 dose 183 (New Bag - Provider: Eliza Palmer RN)1955 (Stopped - Provider: Nicolle Frazier, PASTORA) PRN Medication Order 07/09/2025 07/10/2025 07/11/2025 iopamidol (Isovue-370) 76 % injection 100 mL (COMPLETED) 100 mL, IntraVENous, IMG once PRN, contrast, Starting on Wed07/10/25 at 195, For 1 dose 1957 (Given - Provider: [...] BE BASED ON THE PRIMARY CLINICAL RECORDS. [facility]. provides no warranty or guarantee of the accuracy or completeness of information in this document.
[2025-07-19 09:01] LABS: Hematocrit 38.0 % (37-47); Hemoglobin 11.8 g/dL (12.0-15.0); Mean Corp Hgb Conc 31.1 g/dL (32-36); Mean Corpuscular Volume 82.6 fL (81-99); Mean Platelet Vol. 9.5 fl (6.2-12.0); Platelet Count 411 K/mm3 (150-450); RBC Distribution Width CV 14.5 % (11.6-14.6); RBC Distribution Width SD 43.6 fl (35.1-43.9); Red Blood Count 4.60 M/mm3 (4.2-5.4); White Blood Count 10.0 K/mm3 (4.4-11.0)
[2025-07-19 09:17] LABS: Anion Gap 10 (5-15); BUN 15 mg/dL (4-19); BUN/Creat Ratio 20.9 RATIO (10-20); Calcium,Total 8.8 mg/dL (7.6-11.0); Carbon Dioxide 25.9 mmol/L (21.0-32.0); Chloride 103 mmol/L (98-108); Glucose 62 mg/dL (70-99); Potassium 4.3 mmol/L (3.3-5.1)
== END ==
LOC: OLS.SANC 05:00
PROVIDERS: Visit Provider Internal Medicine
DX: I10 Essential (primary) hypertension (principal); E78.5 Hyperlipidemia, unspecified; E11.9 Type 2 diabetes mellitus without complications
CPT/HCPCS: 36415; 80048; 85027

== ENCOUNTER → 2025-08-23 05:00 | Outpatient (REF) | payer MEDICARE, MEDICAID, SELFPAY ==
[2025-08-23 09:33] LABS: Hematocrit 35.7 % (37-47); Hemoglobin 10.8 g/dL (12.0-15.0); Mean Corp Hgb Conc 30.3 g/dL (32-36); Mean Corpuscular Volume 87.1 fL (81-99); Mean Platelet Vol. 10.0 fl (6.2-12.0); Platelet Count 328 K/mm3 (150-450); RBC Distribution Width CV 15.8 % (11.6-14.6); RBC Distribution Width SD 50.4 fl (35.1-43.9); Red Blood Count 4.10 M/mm3 (4.2-5.4); White Blood Count 6.6 K/mm3 (4.4-11.0)
[2025-08-23 09:47] LABS: Anion Gap 8 (5-15); BUN 14 mg/dL (4-19); BUN/Creat Ratio 22.2 RATIO (10-20); Calcium,Total 8.6 mg/dL (7.6-11.0); Carbon Dioxide 29.8 mmol/L (21.0-32.0); Chloride 102 mmol/L (98-108); Glucose 122 mg/dL (70-99); Potassium 4.2 mmol/L (3.3-5.1)
== END ==
LOC: OLS.SANC 05:00
PROVIDERS: Visit Provider Internal Medicine
DX: E11.9 Type 2 diabetes mellitus without complications (principal); I10 Essential (primary) hypertension; I89.0 Lymphedema, not elsewhere classified
CPT/HCPCS: 36415; 80048; 85027

== ENCOUNTER → 2025-08-28 05:00 | Outpatient (REF) | payer MEDICARE, MEDICAID, SELFPAY ==
--- OUTSIDE RECORDS SUMMARY | 2025-08-28 04:16 | XMS RPT_ITS | CCD ---
Author Organization [facility] ion [facility] Care Team Providers Care Health Worker Name Role Phone Kylah Luu Unavailable Unavailable RasKylah fuentes Unavailable Unavailable RASKYLAH FUENTES Unavailable Unavailable RASKYLAH FUENTES Unavailable Unavailable RASKYLAH FUENTES Unavailable Unavailable SARBJIT GARNER Unavailable Unavailable AARON, THEO Unavailable Unavailable MARINE, JAYSON Unavailable Unavailable BICAKODAK, VERA Unavailable Unavailable RASKYLAH FUENTES Unavailable Unavailable RASKYLAH FUENTES Unavailable Unavailable SARBJIT GARNER Unavailable Unavailable GATITO, TERRIE Unavailable Unavailable MARINE, JAYSON Unavailable Unavailable GUERRERO, BRANDON Unavailable Unavailable RASKYLAH FUENTES Unavailable Unavailable SARBJIT GARNER Unavailable Unavailable KYLAH LUU Unavailable Unavailable RASKYLAH FUENTES Unavailable Unavailable JERRY DAVIS Unavailable Unavailable RASGINA, KYLAH Escobar Unavailable Unavailable MARINE, JAYSON Unavailable Unavailable GUERRERO, BRANDON Unavailable Unavailable MARINE, JAYSON Referring Unavailable KYLAH LUU Referring Unavailable Jared Guzman Primary Care Provider Jared Guzman Primary Care Provider [phone] Jared Guzman Primary Care Provider [phone] Unavailable Primary Care Provider Unavailabl e Jared Guzman Primary Care Provider [phone] Jared Guzman Primary Care Provider Jared Guzman Primary Care Provider SARBJIT GARNER Primary Care Unavail able ELDA REAVES Attending Unavailable Alejandro tSephenson APRN, CNP Unavailable [phone] Jared Signh Attending Provider Unavailab le Katsaros OLS, Peter Referring Provider Unavailab le Katsaros OLS, Peter Attending Provider Unavailab le Katsaros OLS, Peter Referring Provider Unavailab le Katsaros OLS, Peter Attending Provider Unavailab le Katsaros OLS, Peter Referring Provider Unavailab keisha Mandel [employer], Alejandro Unavailable [phone] KATSAROS, PETER Primary Care Unavailable VICENTE MIXON Attending Unavailable KATSAROS, PETER Primary Care Unavailable SHAWN FARIAS Consulting Unavailable SHAWNA, ÁLVARO Attending Unavailable SHAWNA, ÁLVARO Admitting Unavailable KATSAROS, PETER Primary Care Unavailable BASAR, FARHAD Attending Unavailable BASAR, FARHAD Admitting Unavailable KATSAROS, PETER Primary Care Unavailable GATITOVIRGIL Attending Unavailable KATSAROS, PETER Primary Care Unavailable CHARLY, GRACE Admitting Unavailable CHARLY, GRACE Attending Unavailable MINISTERIO, ALEJANDRO Referring Unavailable MANDEL, ALEJANDRO Attending Unavailable KATSAROS, PETER Primary Care Unavailable KATSAROS, PETER Primary Care Unavailable LILO RIZO Attending Unavailable MARGO GUERRERO Attending Unavailable KATSAROS, PETER Primary Care Unavailable KATSAROS, PETER Referring Unavailable MINISTERIO, ALEJANDRO Attending Unavailable KATSAROS, PETER Primary Care Unavailable KAUSHAL SCHULTZ Attending Unavailable KATSAROS, PETER Primary Care Unavailable KATSAROS, PETER Primary Care Unavailable DANY WOODRUFF Attending Unavailable KATSAROS, PETER Primary Care Unavailable ASUNCION VALENCIA Attending Unavailable WANDA JOHNSON Attending Unavailable ROSY IBARRA Referring Unavailable KATSAROS, PETER Primary Care Unavailable KATSAROS, PETER Primary Care Unavailable ASUNCION VALENCIA Attending Unavailable KATSAROS, PETER Primary Care Unavailable HERMES ISSA Attending Unavailable Katsaros OLS, Jared Attending Unavailable Katsaros OLS, Jared Attending Unavailable Katsaros OLS, Jared Referring Unavailable Katsaros OLS, Jared Attending Unavailable Katsaros OLS, Jared Attending Unavailable Katsaros OLS, Jared Attending Unavailable Katsaros OLS, Jared Attending Unavailable Katsaros OLS, Jared Attending Unavailable Katsaros OLS, Jared Attending Unavailable Katsaros OLS, Jared Attending Unavailable Katsaros OLS, Peter Attending Unavailable Katsaros OLS, Peter Attending Unavailable Katsaros OLS, Peter Referring Unavailable Katsaros OLS, Peter Attending Unavailable Katsaros OLS, Peter Referring Unavailable Katsaros OLS, Jared Attending Unavailable Katsaros OLS, Jared Referring Unavailable Katsaros OLS, Jared Attending Unavailable Katsaros OLS, Peter Referring Unavailable Katsaros OLS, Peter Attending Unavailable Katsaros OLS, Peter Attending Unavailable Jared Singh Attending Unavailable Medications Current Medications Medication Drug Class(es) [...] Active docusate sodium 50 mg / sennosides, senior living 8.6 mg oral tablet (20 sources) take [...] last modification) on Gabi 10/19/24 at 2100 Start: 10-19-2024 inject 50 [IU] by macdonald bcutaneous injection once 50 Units, SubCUTAneous, Once, On Gabi 10/19/24 at 1415, For 1 dose Start: 10-19-2024 [...] inulin 200 mg / lactobacillus rhamnosus gg [id number] unt oral capsule (1 source) Start: 09-18-2020 [...] mg, Oral, Daily, Fir st dose on Wed10/10/23 at 1745, On hold [...] Oral, Every 24 hours, First dose on 06/28/23 at 0900 Start: 11-23-2020 take 40 mg by mouth once daily 40 mg, Oral, DAILY, First dose on 11/23/20 at 0900 Start: 09-18-2020 take 40 mg [...] sources) Proton Pump Inhibitor Star t: 09-09 End: 10-08 pantoprazole (ProtoNix) 40 MG EC tablet Take 40 mg by mouth. 11/26/2020 Active pantoprazole (PROTONIX) injection 40 mg (1 source) Star t: 09-08 20 pantoprazole (PROTONIX) injection 40 mg phenol 14 mg/ml mouthwash (1 source) Star t: 06-08 0 19 phenol 1.4 % mouth spray 1 spray polyethylene glycol 3350 [id number] mg / potassium chloride 2970 mg / sodium bicarbonate 6740 mg / sodium chloride 5860 mg / sodium sulfate 05087 mg powder for oral solution (1 source) Osmotic Laxative Star t: 12-09 25 End: 12-09 25 polyethylene glycol (GaviLyte-G) 236 g solution Indications: [...] meals, First dose (after last modification) on 10/22/24 at 0730, Give 50% of the [...] mes daily before meals, First dose on Wed10/19/24 at 1615, Note High CONCENTRATION: 500 units/mL, [...] meals, First dose (after last modification) on 10/09/23 at 1300, Note High CONCENTRATION: 500 units/mL, [...] 20 mg, Oral, NIGHTLY, First dose on Wed06/15/19 at 2100 End: 06-28-2023 simvastatin (Zocor) 20 [...] Taking at Discharge) 20 ml albumin human, senior living 250 mg/ml injection (2 sources) Human Serum [...] given, Starting on Gabi 10/14/23 at 1557 ARIPiprazole 10 mg oral tablet (20 sources) Atypical Antipsychotic Start: 10-19-2024 End: 10-23-2024 take 10 mg by mouth once daily 10 mg, Oral, Daily, First dose on Gabi 10/19/24 at 0900 Start: 10-07-2023 End: 10-17-2023 take [...] ringers bolus castor oil 0.788 mg/mg / citizen of [place] balsam 0.087 mg/mg topical ointment (4 sources) Standardized Chemical Allergen Start: 01-17-2019 End: 09-17-2020 Balsam Emilia-[place] Oil (VENELEX) OINT ointment Apply topically daily [...] Intra-Abdominal Infection cephalexin 500 mg oral capsule (13 sources) Cephalosporin Antibacterial Start: 07-10-2025 End: 07-10-2025 take 500 mg by mouth once 500 mg, Oral, Once, On Wed07/10/25 at 2240, For 1 dose, Suspected Indication (Select all that apply): Urinary Tract Infection Start: 07-10-2025 End: 07-26-2025 take 1 capsule by mouth twice daily cephalexin (Keflex) 500 MG capsule Take 1 capsule (500 mg) by mouth 2 times daily for 5 days. 10 capsule 07/10/2025 07/26/2025 Discontinued (Med list cleanup) Start: 01-22-2024 End: 01-29-2024 take 1 capsule [...] 15 g Start: 09-18-2020 15 g, Oral, KS N, Low blood sugar, Starting Wed09/18/20 at [...] Start: 10-12-2023 End: 10-17-2023 250 Units, IntraCATHeter, [place] N, line care, after blood draws and [...] injection once 10 Units, SubCUTAneous, Once, On Wed10/10/23 at 2230, For 1 dose Start: 08-18-2023 [...] tablet by mouth 0 Active lactobacillus acidophilus [id number] unt / pectin 100 mg oral tablet (20 sources) End: 01-11-2024 take 1 tablet by mouth in the morning Lactobacillus Acid-Pectin (Acidophilus/Elbert Pectin) tablet Take 1 tablet by mouth [...] 2 TIMES D AILY, First dose on 11/23/20 at 0045 Hazardous Medication -- Refer to facility policy for handling and disposal. Start: 09-18-2020 take 80 mg by mouth twice rhoda y 80 mg, Oral, 2 TIMES DAILY, First dose on 09/18/20 at 0900 Hazardous Medication -- Refer to facility policy for handling and disposal. Start: 07-26-2019 End: 01-18-2021 take 2 tablets by mouth twice daily [...] mg, Oral, Nightly, F irst dose on Gabi 10/07/23 at 2100 take 1 tablet by stacie [...] ondansetron (ZOFRAN) 4 MG/2M L injection End: 01-18-2021 take 1 tablet by mouth every eight [...] Hours, Every 8 hours, First dose on Wed10/19/24 at 0800, Mini-Bag Plus bag, Suspected Indication (Select all that apply): Intra-Abdominal Infection polyethylene glycol 3350 52296 mg powder for oral solution (20 sources) [...] 6 hours PRN, nausea, vomiting, Starting on 10/10/23 at 1729, 2nd-line if Zofran ineffective. Start: [...] suspension 15 g technetium Tc-99m sulfur colloid (Nycomed-UT) radio-isotope solution 1.1 millicurie (2 sources) Start: [...] hours, First dose on Wed10/11/23 at 0000, ADD-Bixby bag, Suspected Indication (Select all that apply): [...] stump; 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: [Amputation stump infection (HCC)] Episodic Deficiency and other anemia (1 source) Anemia, unspecified; 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: [ANEMIA UNSPECIFIED] Onset: 03-25-20 Episodic Diabetes mellitus with complications (20 sources) [...] [Type 2 diabetes mellitus without complications] Onset: 04-06-2009-01-2018 Chronic Disorders of lipid metabolism (20 sources) [...] nonintractable headache, unspecified headache type] 07-10-2025 Episodic Headache; including migraine (2 sources) Headache; including migraine; 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: [Headache, unspecified] Onset: 07-10-20 Hypertension with complications and secondary hypertension (2 [...] sources) Long-term current use of 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; 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] 10-12-2023 Episodic Other aftercare (1 source) 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; 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: [Other nursing home (current) drug therapy] Onset: 07-18-20 Episodic Other bone disease and musculoskeletal deformities [...] nutritional; endocrine; and metabolic disorders (2 sources) Insulin resistance; 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: [Insulin resistance] 07-27-2025 Chronic Other nutritional; endocrine; and metabolic disorders (2 sources) Body mass index (BMI) 50.0-59.9, adult; 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: [Body mass index (BMI) 50.0-59.9, adult (HCC)] Onset: 06-07-20 Chronic Other nutritional; endocrine; and metabolic disorders (2 sources) Body mass index (BMI) 45.0-49.9, adult; 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: [Body mass index (BMI) 45.0-49.9, adult ([facility])] Onset: 04-06-20 Chronic Other screening for suspected [...] Schizophrenia, unspecified; 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: [SCHIZOPHRENIA UNSPECIFIED] Onset: 05-09-20 Chronic Skin and subcutaneous tissue infections (6 sources) Cellulitis of left lower limb; 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: [Left leg cellulitis] Onset: 01-12-20 19 01-11-2019 Unclassified (1 source) Body mass index (BMI) 60.0-69.9, adult; 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: [BODY MASS INDEX BMI 60.0-69.9 ADULT] Onset: 05-09-20 Chronic Unclassified (1 source) Dual role transvestism; 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 Unclassified (1 source) 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; 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: [NON-PRS C U OTH P R FT OTH SPEC SEV] Onset: 03-25-20 Unclassified (1 source) Transsexualism; 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: [TRANSSEXUALISM] Onset: 02-11-20 Unclassified (1 source) Wound Check Onset: 06-28-20 18 Unclassified (8 sources) History of amputation of right leg through femur; 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: [S/P AKA (above knee amputation) unilateral, right] 06-20-2019 Unclassified (1 source) Obesity, class 3 (HCC); 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: [Obesity, class 3 (HCC)] Onset: 04-06-20 Urinary tract infections (9 sources) Bacterial urinary infection; 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: [Pyelonephritis] Onset: 07-10-20 25 08-08-2023 Episodic Past or Other Problems Problem [...] 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: [Acute cholecystitis] Onset: 4 10-18-2024 Episodic Diabetes mellitus without complication (20 sources) [...] 3 06-28-2023 Episodic Other aftercare (5 sources) 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; 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: [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] Onset: 8 Episodic Other [...] Unclassified (3 sources) PAD (peripheral artery disease) ([facility]) 02-01-2025 Unclassified (1 source) Obesity, class 3 ([facility]); 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: [Obesity, class 3 ([facility])] Onset: 5 Results Test Name Value Interpretation Reference Range Facility Basic Metabolic Profile (BMP )on 08-23-2025 BUN/CRE 22.2 RATIO High - [facility] Comment on above: Order Comment: 103.1 Performed By: #### L 100.0500, L500.2500 #### [facility] [address] [place], [address] Calcium [Mass/Vol] 8.6 mg/dL Normal 7.6-11.0 [facility] Comment on above: Order Comment: 103.1 Performed By: #### L 100.0500, L500.2500 #### [facility] [address] [place], [address] Chloride [Moles/Vol] 102 mmol/L Normal 98-108 [facility] Comment on above: Order Comment: 103.1 Performed By: #### L 100.0500, L500.2500 #### [facility] [address] [place], [address] CO2 [Moles/Vol] 29.8 mmol/L Normal 21.0-32.0 [facility] Comment on above: Order Comment: 103.1 Performed By: #### L 100.0500, L500.2500 #### [facility] [address] [place], [address] Creatinine [Mass/Vol] 0.63 mg/dL Low 0.70-1.20 [facility] Comment on above: Order Comment: 103.1 Performed By: #### L 100.0500, L500.2500 #### [facility] [address] [place], [address] GAP 8 Normal 5-15 [facility] Comment on above: Order Comment: 103.1 Performed By: #### L 100.0500, L500.2500 #### [facility] [address] [place], [address] GFR/1.73 sq M.predicted among non-blacks MDRD (S/P/Bld) [Vol rate/Area] 103 mL/min/{1.73_m2} Normal >60 [facility] Comment on above: Order Comment: 103.1 Result Comment: mL/m in/1.73m2 CKD-EPI Creatinine Equation (2020) Performed By: #### L 100.0500, L500.2500 #### [facility] [address] [place], [address] Glucose [Mass/Vol] 122 mg/dL High 70-99 [facility] Comment on above: Order Comment: 103.1 Performed By: #### L 100.0500, L500.2500 #### [facility] [address] [place], [address] Potassium [Moles/Vol] 4.2 mmol/L Normal 3.3-5.1 [facility] Comment on above: Order Comment: 103.1 Performed By: #### L 100.0500, L500.2500 #### [facility] [address] [place], [address] Sodium [Moles/Vol] 140 mmol/L Normal 133-145 [facility] Comment on above: Order Comment: 103.1 Performed By: #### L 100.0500, L500.2500 #### [facility] [address] [place], [address] Urea nitrogen [Mass/Vol] 14 mg/dL Normal 4-19 [facility] Comment on above: Order Comment: 103.1 Performed By: #### L 100.0500, L500.2500 #### [facility] [address] [place], [address] CBC-Complete Blood Cnt No Di ffon 08-23-2025 Erythrocyte distribution width (RBC) [Ratio] 15.8 % High 11.6-14.6 [facility] Comment on above: Order Comment: 103.1 Performed By: #### L 100.0500, L500.2500 #### [facility] [address] [place], [address] Hematocrit (Bld) [Volume fraction] 35.7 % Low 37-47 [facility] Comment on above: Order Comment: 103.1 Performed By: #### L 100.0500, L500.2500 #### [facility] [address] [place], [address] Hemoglobin (Bld) [Mass/Vol] 10.8 g/dL Low 12.0-15.0 [facility] Comment on above: Order Comment: 103.1 Performed By: #### L 100.0500, L500.2500 #### [facility] [address] [place], [address] MCH (RBC) [Entitic mass] 26.3 pg Low 27.0-32.0 [facility] Comment on above: Order Comment: 103.1 Performed By: #### L 100.0500, L500.2500 #### [facility] [address] [place], [address] MCHC (RBC) [Mass/Vol] 30.3 g/dL Low 32-36 [facility] Comment on above: Order Comment: 103.1 Performed By: #### L 100.0500, L500.2500 #### [facility] [address] [place], [address] MCV (RBC) [Entitic vol] 87.1 fL Normal 81-99 [facility] Comment on above: Order Comment: 103.1 Performed By: #### L 100.0500, L500.2500 #### [facility] [address] [place], [address] Platelet mean volume (Bld) [Entitic vol] 10.0 fL Normal 6.2-12.0 [facility] Comment on above: Order Comment: 103.1 Performed By: #### L 100.0500, L500.2500 #### [facility] [address] [place], [address] Platelets (Bld) [#/Vol] 328 10*3/uL Normal 150-450 [facility] Comment on above: Order Comment: 103.1 Performed By: #### L 100.0500, L500.2500 #### [facility] [address] [place], [address] RBC (Bld) [#/Vol] 4.10 10*6/uL Low 4.2-5.4 [facility] Comment on above: Order Comment: 103.1 Performed By: #### L 100.0500, L500.2500 #### [facility] [address] [place], [address] RDW SD 50.4 fl High 35.1-43.9 [facility] Comment on above: Order Comment: 103.1 Performed By: #### L 100.0500, L500.2500 #### [facility] [address] [place], [address] WBC (Bld) [#/Vol] 6.6 10*3/uL Normal 4.4-11.0 [facility] Comment on above: Order Comment: 103.1 Performed By: #### L 100.0500, L500.2500 #### [facility] [address] [place], [address] 36on 07-30-2025 36 Faxed Recent Chart n ote to [employer] [facility] 36on 07-27-2025 36 Lease fax last OV to facility, [facility] Progress Noteon 07-26-2025 Progress Note [facility] 36on 07-24-2025 36 Spoke with nurse Johan clark at the facility. Confirmed the appointment date and time. Agrees to bring recommended documents. The PCP is Dr Jared Guzman [facility] 36 [facility] 36on 07-23-2025 36 Patient's BGL [facility] 36 Spoke with PASTORA Barrera. She verbalized and understand below TE. [facility] 36on 07-20-2025 36 [facility] 36on 07-19-2025 36 Scanned, see in the media tab. [facility] 36 Called to the facili ty, said they will fax it. [facility] Basic Metabolic Profile (BMP )on 07-19-2025 BUN/CRE 20.9 RATIO High 10-20 [facility] Comment on above: Order Comment: 103.1 Performed By: #### L 100.0500, L500.2500 #### [facility] [address] [place], [address] Calcium [Mass/Vol] 8.8 mg/dL Normal 7.6-11.0 [facility] Comment on above: Order Comment: 103.1 Performed By: #### L 100.0500, L500.2500 #### [facility] [address] [place], [address] Chloride [Moles/Vol] 103 mmol/L Normal 98-108 [facility] Comment on above: Order Comment: 103.1 Performed By: #### L 100.0500, L500.2500 #### [facility] [address] [place], [address] CO2 [Moles/Vol] 25.9 mmol/L Normal 21.0-32.0 [facility] Comment on above: Order Comment: 103.1 Performed By: #### L 100.0500, L500.2500 #### [facility] [address] [place], [address] Creatinine [Mass/Vol] 0.71 mg/dL Normal 0.70-1.20 [facility] Comment on above: Order Comment: 103.1 Performed By: #### L 100.0500, L500.2500 #### [facility] [address] [place], [address] GAP 10 Normal 5-15 [facility] Comment on above: Order Comment: 103.1 Performed By: #### L 100.0500, L500.2500 #### [facility] [address] [place], [address] GFR/1.73 sq M.predicted among non-blacks MDRD (S/P/Bld) [Vol rate/Area] 99 mL/min/{1.73_m2} Normal >60 [facility] Comment on above: Order Comment: 103.1 Result Comment: mL/m in/1.73m2 CKD-EPI Creatinine Equation (2020) Performed By: #### L 100.0500, L500.2500 #### [facility] [address] [place], [address] Glucose [Mass/Vol] 62 mg/dL Low 70-99 [facility] Comment on above: Order Comment: 103.1 Performed By: #### L 100.0500, L500.2500 #### [facility] [address] [place], [address] Potassium [Moles/Vol] 4.3 mmol/L Normal 3.3-5.1 [facility] Comment on above: Order Comment: 103.1 Performed By: #### L 100.0500, L500.2500 #### [facility] [address] [place], [address] Sodium [Moles/Vol] 139 mmol/L Normal 133-145 [facility] Comment on above: Order Comment: 103.1 Performed By: #### L 100.0500, L500.2500 #### [facility] [address] [place], [address] Urea nitrogen [Mass/Vol] 15 mg/dL Normal 4-19 [facility] Comment on above: Order Comment: 103.1 Performed By: #### L 100.0500, L500.2500 #### [facility] [address] [place], [address] CBC-Complete Blood Cnt No Di ffon 07-19-2025 Erythrocyte distribution width (RBC) [Ratio] 14.5 % Normal 11.6-14.6 [facility] Comment on above: Order Comment: 103.1 Performed By: #### L 100.0500, L500.2500 #### [facility] [address] [place], [address] Hematocrit (Bld) [Volume fraction] 38.0 % Normal 37-47 [facility] Comment on above: Order Comment: 103.1 Performed By: #### L 100.0500, L500.2500 #### [facility] [address] [place], [address] Hemoglobin (Bld) [Mass/Vol] 11.8 g/dL Low 12.0-15.0 [facility] Comment on above: Order Comment: 103.1 Performed By: #### L 100.0500, L500.2500 #### [facility] [address] [place], [address] MCH (RBC) [Entitic mass] 25.7 pg Low 27.0-32.0 [facility] Comment on above: Order Comment: 103.1 Performed By: #### L 100.0500, L500.2500 #### [facility] [address] [place], [address] MCHC (RBC) [Mass/Vol] 31.1 g/dL Low 32-36 [facility] Comment on above: Order Comment: 103.1 Performed By: #### L 100.0500, L500.2500 #### [facility] [address] [place], [address] MCV (RBC) [Entitic vol] 82.6 fL Normal 81-99 [facility] Comment on above: Order Comment: 103.1 Performed By: #### L 100.0500, L500.2500 #### [facility] [address] [place], [address] Platelet mean volume (Bld) [Entitic vol] 9.5 fL Normal 6.2-12.0 [facility] Comment on above: Order Comment: 103.1 Performed By: #### L 100.0500, L500.2500 #### [facility] [address] [place], [address] Platelets (Bld) [#/Vol] 411 10*3/uL Normal 150-450 [facility] Comment on above: Order Comment: 103.1 Performed By: #### L 100.0500, L500.2500 #### [facility] [address] [place], [address] RBC (Bld) [#/Vol] 4.60 10*6/uL Normal 4.2-5.4 [facility] Comment on above: Order Comment: 103.1 Performed By: #### L 100.0500, L500.2500 #### [facility] [address] [place], [address] RDW SD 43.6 fl Normal 35.1-43.9 [facility] Comment on above: Order Comment: 103.1 Performed By: #### L 100.0500, L500.2500 #### [facility] [address] [place], [address] WBC (Bld) [#/Vol] 10.0 10*3/uL Normal 4.4-11.0 [facility] Comment on above: Order Comment: 103.1 Performed By: #### L 100.0500, L500.2500 #### [facility] [address] [place], [address] 36on 07-18-2025 36 Left a VM to faxed s the MAR and med list. Normal [facility] 36 Patient's BGL Normal [facility] Urine Cultureon 07-13-2025 URC #4 Organism is too fastidious for routine susceptibility studies. Escherichia coli [place] Count 80,000-100,000 Proteus mirabilis Proteus mirabilis SWAR [place] Count 25,000-50,000 Staphylococcus warneri [place] Count 25,000-50,000 Escherichia coli: REACTION Globicatella sanguinis Ampicillin+Sulbac Islt TULIO <=2 Cefepime Islt TULIO <=0.12 S cefTRIAXone Islt TULIO <=0.25 Ciprofloxacin Islt TULIO <=0.06 S B-Lactamase Extended Susc Islt NEG Gentamicin Islt TULIO <=1 S levoFLOXacin Islt TULIO <=0.12 S Meropenem Islt TULIO <=0.25 S Nitrofurantoin Islt TLUIO <=16 S Pip+Tazo Islt TULIO <=4 S TMP SMX Islt TULIO <=20 S Proteus mirabilis: REACTION Ampicillin Islt TULIO <=2 S Ampicillin+Sulbac Islt TULIO <=2 S Cefepime Islt TULIO <=0.12 S cefTRIAXone Islt TULIO <=0.25 Ciprofloxacin Islt TULIO 1 R Gentamicin Islt TULIO <=1 S levoFLOXacin Islt TULIO 1 I Meropenem Islt TULIO 0.5 S Nitrofurantoin Islt TULIO 128 R Pip+Tazo Islt TULIO <=4 S TMP SMX Islt TULIO <=20 S Staphylococcus warneri: REACTION cefOXitin Susc Islt NEG Doxycycline Islt TULIO <=0.5 S Clindamycin.induced Susc Islt NEG Gentamicin Islt TULIO <=0.5 Linezolid Islt TULIO 2 S Nitrofurantoin Islt TULIO <=16 S Oxacillin Susc Islt <=0.25 S Tetracycline Islt UTLIO <=1 S TMP SMX Islt TULIO <=10 S Vancomycin Islt TULIO 1 S Normal [facility] Comment on above: Performed By: #### L 100.0500, L500.4050 #### [facility] [address] [place], [address] Basic Metabolic Profile (BMP )on 07-12-2025 BUN/CRE 28.4 RATIO High 10-20 [facility] Comment on above: Order Comment: 103.1 Performed By: #### L 100.0500, L500.2500 #### [facility] [address] [place], [address] Calcium [Mass/Vol] 8.5 mg/dL Normal 7.6-11.0 [facility] Comment on above: Order Comment: 103.1 Performed By: #### L 100.0500, L500.2500 #### [facility] [address] [place], [address] Chloride [Moles/Vol] 99 mmol/L Normal 98-108 [facility] Comment on above: Order Comment: 103.1 Performed By: #### L 100.0500, L500.2500 #### [facility] [address] [place], [address] CO2 [Moles/Vol] 27.3 mmol/L Normal 21.0-32.0 [facility] Comment on above: Order Comment: 103.1 Performed By: #### L 100.0500, L500.2500 #### [facility] [address] [place], [address] Creatinine [Mass/Vol] 0.65 mg/dL Low 0.70-1.20 [facility] Comment on above: Order Comment: 103.1 Performed By: #### L 100.0500, L500.2500 #### [facility] [address] [place], [address] GAP 10 Normal 5-15 [facility] Comment on above: Order Comment: 103.1 Performed By: #### L 100.0500, L500.2500 #### [facility] [address] [place], [address] GFR/1.73 sq M.predicted among non-blacks MDRD (S/P/Bld) [Vol rate/Area] 102 mL/min/{1.73_m2} Normal >60 [facility] Comment on above: Order Comment: 103.1 Result Comment: mL/m in/1.73m2 CKD-EPI Creatinine Equation (2020) Performed By: #### L 100.0500, L500.2500 #### [facility] [address] [place], [address] Glucose [Mass/Vol] 76 mg/dL Normal 70-99 [facility] Comment on above: Order Comment: 103.1 Performed By: #### L 100.0500, L500.2500 #### [facility] [address] [place], [address] Potassium [Moles/Vol] 4.2 mmol/L Normal 3.3-5.1 [facility] Comment on above: Order Comment: 103.1 Performed By: #### L 100.0500, L500.2500 #### [facility] [address] [place], [address] Sodium [Moles/Vol] 137 mmol/L Normal 133-145 [facility] Comment on above: Order Comment: 103.1 Performed By: #### L 100.0500, L500.2500 #### [facility] [address] [place], [address] Urea nitrogen [Mass/Vol] 18 mg/dL Normal 4-19 [facility] Comment on above: Order Comment: 103.1 Performed By: #### L 100.0500, L500.2500 #### [facility] [address] [place], [address] CBC-Complete Blood Cnt No Di ffon 07-12-2025 Erythrocyte distribution width (RBC) [Ratio] 14.3 % Normal 11.6-14.6 [facility] Comment on above: Order Comment: 103.1 Performed By: #### L 100.0500, L500.2500 #### [facility] [address] [place], [address] Hematocrit (Bld) [Volume fraction] 34.8 % Low 37-47 [facility] Comment on above: Order Comment: 103.1 Performed By: #### L 100.0500, L500.2500 #### [facility] [address] [place], [address] Hemoglobin (Bld) [Mass/Vol] 10.8 g/dL Low 12.0-15.0 [facility] Comment on above: Order Comment: 103.1 Performed By: #### L 100.0500, L500.2500 #### [facility] [address] [place], [address] MCH (RBC) [Entitic mass] 26.2 pg Low 27.0-32.0 [facility] Comment on above: Order Comment: 103.1 Performed By: #### L 100.0500, L500.2500 #### [facility] [address] [place], [address] MCHC (RBC) [Mass/Vol] 31.0 g/dL Low 32-36 [facility] Comment on above: Order Comment: 103.1 Performed By: #### L 100.0500, L500.2500 #### [facility] [address] [place], [address] MCV (RBC) [Entitic vol] 84.5 fL Normal 81-99 [facility] Comment on above: Order Comment: 103.1 Performed By: #### L 100.0500, L500.2500 #### [facility] [address] [place], [address] Platelet mean volume (Bld) [Entitic vol] 10.8 fL Normal 6.2-12.0 [facility] Comment on above: Order Comment: 103.1 Performed By: #### L 100.0500, L500.2500 #### [facility] [address] [place], [address] Platelets (Bld) [#/Vol] 316 10*3/uL Normal 150-450 [facility] Comment on above: Order Comment: 103.1 Performed By: #### L 100.0500, L500.2500 #### [facility] [address] [place], [address] RBC (Bld) [#/Vol] 4.12 10*6/uL Low 4.2-5.4 [facility] Comment on above: Order Comment: 103.1 Performed By: #### L 100.0500, L500.2500 #### [facility] [address] [place], [address] RDW SD 44.1 fl High 35.1-43.9 [facility] Comment on above: Order Comment: 103.1 Performed By: #### L 100.0500, L500.2500 #### [facility] [address] [place], [address] WBC (Bld) [#/Vol] 11.9 10*3/uL High 4.4-11.0 [facility] Comment on above: Order Comment: 103.1 Performed By: #### L 100.0500, L500.2500 #### [facility] [address] [place], [address] No Panel InformationOrdered By: Shirley Graves on 07-11-2025 P [place] 68 degrees [place] Phone: [place] Interval 182 ms [employer] Phone: QRS [place] -33 degrees [place] Phone: QRSD Interval 113 ms [place] Phone: QT Interval 420 ms [place] Phone: [phone] QTC Interval 491 ms [employer] Phone: [phone] T Wave [place] 59 degrees [place] Phone: [phone] [place] Phone: No Panel Informationon 07-11 Shirley Graves D O - 07/11/2025 IMPRESSION: Sinus rhythm Abnormal R-wave progression, late transition Left ventricular hypertrophy Borderline prolonged QT interval Electronically Signed On 07-11-2025 00:56:44 EDT by Shirley Graves [facility] [email or web address] Vital signsOrdered By: Oscar Graves on 07-11-2025 Heart rate 82 /min bpm [place] Phone: BETA HYDROXYBUTYRATEon 07-10 BETA HYDROXYBUTYRATE 7.3 mg/dL High <=2.8 [facility] Comment on above: Performed By: #### L AB17, LAB99, [id number], [id number] ####Manager Sas: KEMAR ABEBE ([phone])[facility] YARITZA (SBHLAB)[address] [place] [address] BLOOD GAS, VENOUSon 07-10-20 25 AMOUNT OF OXYGEN 2L Normal [facility] Comment on above: Result Comment: MARIE Askew COMMENTS:Assessment of oxygenation is best done with an arterial blood gas determination. Reference ranges for pO2, bicarbonate, and base excess are for mixed venous blood. Specimens drawn from a peripheral vein will often have higher values. Performed By: #### L AB79 ####Manager Sas: KEMAR ABEBE ([phone])[facility] CAMPUSWarren [facility] HOSPITALJermaine (SBHLAB)[address] Base excess Calc (BldV) [Moles/Vol] 6.8 mmol/L High -3.0-3.0 [facility] Comment on above: Performed By: #### L AB79 ####Manager Sas: KEMAR ABEBE ([phone])[facility] (SBHLAB)[address] CO2 [Moles/Vol] 35.4 mmol/L High 23.0-30.0 [facility] Comment on above: Performed By: #### L AB79 ####Manager Sas: KEMAR ABEBE ([phone])[facility] (SBHLAB)[address] HCO3 (Bld) [Moles/Vol] 33.6 mmol/L High 21.0-30.[address] [facility] Comment on above: Performed By: #### L AB79 ####Manager Sas: KEMAR ABEBE ([phone])[facility] (SBHLAB)[address] Hemoglobin (Bld) [Mass/Vol] 12.9 g/dL Normal Screen only [facility] Comment on above: Performed By: #### L AB79 ####Manager Sas: KEMAR ABEBE ([phone])[facility] (SBHLAB)[address] OXYGEN (MM HG) IN VENOUS BLOOD 73.0 mm Hg Normal [facility] Comment on above: Performed By: #### L AB79 ####Manager Sas: KEMAR LUDWIGSAAD ([phone])[facility] CAMPUSWarren [place] (SBHLAB)[address] OXYGEN SATURATION (%) IN VENOUS BLOOD 93.3 % Normal [facility] Comment on above: Performed By: #### L AB79 ####Manager Sas: KEMAR LUDWIGSAAD ([phone])[facility] CAMPUSA [place] (SBHLAB)[address] PCO2, FARIBA 58.4 mm Hg High 40.0-55.0 [facility] Comment on above: Performed By: #### L AB79 ####Manager Sas: KEMAR LUDWIGSAAD ([phone])[facility] CAMPUSWarren [facility] (SBHLAB)[address] PH VENOUS 7.378 Normal 7.320-7.420 [facility] Comment on above: Performed By: #### L AB79 ####Manager Sas: KEMAR LUDWIGSAAD ([phone])[facility] CAMPUSWarren [facility] (SBHLAB)[address] SOURCE OF OXYGEN Nasal Cannula (LPM) Normal [facility] Comment on above: Performed By: #### L AB79 ####Manager Sas: KEMAR LUDWIGSAAD ([phone])[facility] (SBHLAB)[address] CBC W Auto Differential pane l (Bld)on 07-10-2025 Basophils (Bld) [#/Vol] 0 10*3/uL 0.0 - 0.2 10*3/uL [facility] Basophils/100 WBC (Bld) 0.2 % 0.0 - 2.0 % [facility] Eosinophils (Bld) [#/Vol] 0 10*3/uL 0.0 - 0.5 10*3/uL [facility] Eosinophils/100 WBC (Bld) 0.1 % 0.0 - 6.0 % [facility] Erythrocyte distribution width (RBC) [Ratio] 14.7 % 11.5 - 15.0 % [facility] Hematocrit (Bld) [Volume fraction] 36.8 % Male: 40.0-52.0 ; Female: 35.0-47.0 [facility] [employer] Hemoglobin (Bld) [Mass/Vol] 11.6 g/dL Low 11.7 - 18.0 g/dL [facility] [employer] Immature granulocytes (Bld) [#/Vol] 0.1 10*3/uL High NINF - 0.1 10*3/uL [facility] Immature granulocytes/100 WBC (Bld) 0.6 % 0.0 - 2.0 % [facility] [employer] Interpretation and review of laboratory results Abnormal [facility] [employer] Lymphocytes (Bld) [#/Vol] 1 10*3/uL 1.0 - 4.3 10*3/uL [facility] Lymphocytes/100 WBC (Bld) 7.5 % Low 15.0 - 45.0 % [facility] [employer] MCH (RBC) [Entitic mass] 26.3 pg 26.0 - 34.0 pg [facility] [employer] MCHC (RBC) [Mass/Vol] 31.5 % 30.5 - 36.0 % [facility] [employer] MCV (RBC) [Entitic vol] 83.4 fL 77.0 - 99.0 fL [facility] [employer] Monocytes (Bld) [#/Vol] 0.5 10*3/uL 0.0 - 0.9 10*3/uL [facility] [employer] Monocytes/100 WBC (Bld) 3.9 % Low 5.0 - 13.0 % [facility] [employer] Neutrophils (Bld) [#/Vol] 11.4 10*3/uL High 1.8 - 7.5 10*3/uL [facility] Neutrophils/100 WBC (Bld) 87.7 % High 38.0 - 82.0 % [facility] [employer] Nucleated RBC/100 WBC (Bld) [Ratio] 0 % [facility] [employer] Platelet mean volume (Bld) [Entitic vol] 9.7 fL 9.0 - 12.7 fL [facility] [employer] Platelets (Bld) [#/Vol] 317 10*3/uL 140 - 440 10*3/uL [facility] [employer] RBC (Bld) [#/Vol] 4.41 10*6/uL Male: 4.40-5.90; Female: 3.80-5.20 [facility] [employer] WBC (Bld) [#/Vol] 12.9 10*3/uL High 3.6 - 10.7 10*3/uL [facility] CBC WITH AUTO DIFFERENTIALon 07-10-2025 Basophils (Bld) [#/Vol] 0.0 10*3/uL Normal 0.0-0.2 [facility] Comment on above: Performed By: #### L [id number] ####Manager Sas: KEMAR ABEBE ([phone])[facility] [place] (SBHLAB)[address] Basophils/100 WBC (Bld) 0.2 % Normal 0.0-2.[address] [facility] Comment on above: Performed By: #### L [id number] ####Manager Sas: KEMAR ABEBE ([phone])[facility] CAMPUSA [place] (SBHLAB)[address] Eosinophils (Bld) [#/Vol] 0.0 10*3/uL Normal 0.0-0.5 [facility] Comment on above: Performed By: #### L [id number] ####Manager Sas: KEMAR ABEBE ([phone])[facility] CAMPUSA [place] (SBHLAB)[address] [place] [address] Eosinophils/100 WBC (Bld) 0.1 % Normal 0.0-6.0 [facility] Comment on above: Performed By: #### L [id number] ####Manager Sas: KEMAR ABEBE ([phone])[facility] CAMPUSA [place] (SBHLAB)[address] [place] [address] Erythrocyte distribution width (RBC) [Ratio] 14.7 % Normal 11.5-15.0 [facility] Comment on above: Performed By: #### L [id number] ####Manager Sas: KEMAR ABEBE ([phone])[facility] CAMPUSA [place] (SBHLAB)[address] [place] [address] Hematocrit (Bld) [Volume fraction] 36.8 % Normal Male: 40.0-52.0 ; Female: 35.0-47.0 [facility] Comment on above: Performed By: #### L [id number] ####Manager Sas: KEMAR ABEBE ([phone])[facility] CAMPUSWarren [facility]ENTERJ[facility] (SBHLAB)[address] Hemoglobin (Bld) [Mass/Vol] 11.6 g/dL Low 11.7-18.0 [facility] Comment on above: Performed By: #### L [id number] ####Manager Sas: KEMAR ABEBE ([phone])[facility] CAMPUSWarren [facility]ENTERJerm[facility] (SBHLAB)[address] IMMATURE GRANS % 0.6 % Normal 0.0-2.0 [facility] Comment on above: Performed By: #### L [id number] ####Manager Sas: KEMAR ABEBE ([phone])[facility] ([facility]ITALAB)[address] IMMATURE GRANS ABSOLUTE 0.1 10*3/uL High <0.1 [facility] Comment on above: Performed By: #### L [id number] ####Manager Sas: KEMAR LUDWIGSAAD ([phone])[facility] CAMPUSWarren [place] ([facility]ITALAB)[address] Lymphocytes (Bld) [#/Vol] 1.0 10*3/uL Normal 1.0-4.3 [facility] Comment on above: Performed By: #### L [id number] ####Manager Sas: KEMAR ABEBE ([phone])[facility]AMPUSWarren [facility] HOSPITALJermaine (SBAB)[address] Lymphocytes/100 WBC (Bld) 7.5 % Low 15.0-45.0 [facility] Comment on above: Performed By: #### L [id number] ####Manager Sas: KEMAR ABEBE ([phone])[facility] CAMPUSWarren [facility] HOSPITALJermaine (SBAB)[address] MCH (RBC) [Entitic mass] 26.3 pg Normal 26.0-34.0 [facility] Comment on above: Performed By: #### L [id number] ####Manager Sas: KEMAR ABEBE ([phone])[facility] (SBHLAB)[address] [place] [address] MCHC 31.5 % Normal 30.5-36.0 [facility] Comment on above: Performed By: #### L [id number] ####Manager Sas: KEMAR ABEBE ([phone])[facility] (SBHLAB)[address] MCV (RBC) [Entitic vol] 83.4 fL Normal 77.0-99.0 [facility] Comment on above: Performed By: #### L [id number] ####Manager Sas: KEMAR ABEBE ([phone])[facility] (SBHLAB)[address] [place] [address] Monocytes (Bld) [#/Vol] 0.5 10*3/uL Normal 0.0-0.9 [facility] Comment on above: Performed By: #### L [id number] ####Manager Sas: KEMAR ABEBE ([phone])[facility] (SBHLAB)[address] [place] [address] Monocytes/100 WBC (Bld) 3.9 % Low 5.0-13.0 [facility] Comment on above: Performed By: #### L [id number] ####Manager Sas: KEMAR ABEBE ([phone])[facility] (SBHLAB)[address] NEUTROPHILS ABSOLUTE 11.4 10*3/uL High 1.8-7.5 [facility] Comment on above: Performed By: #### L [id number] ####Manager Sas: KEMAR ABEBE ([phone])[facility] [place] (SBHLAB)[address] Neutrophils/100 WBC (Bld) 87.7 % High 38.0-82.0 [facility] Comment on above: Performed By: #### L [id number] ####Manager Sas: KEMAR ABEBE ([phone])[facility]MWar[facility] [place] (SBHLAB)[address] NRBC 0.0 /100 WBCs Normal 0.0-2.0 [facility] Comment on above: Performed By: #### L [id number] ####Manager Sas: KEMAR ABEBE ([phone])[facility]AMPUSWarren [facility] (SBHLAB)[address] Platelet mean volume (Bld) [Entitic vol] 9.7 fL Normal 9.0-12.7 [facility] Comment on above: Performed By: #### L [id number] ####Manager Sas: KEMAR ABEBE ([phone])[facility] CAMPUSWarren [facility] (SBHLAB)[address] Platelets (Bld) [#/Vol] 317 10*3/uL Normal 140-440 [facility] Comment on above: Performed By: #### L [id number] ####Manager Sas: KEMAR ABEBE ([phone])[facility] CAMPUSWarren [facility] (SBHLAB)[address] [place] [address] RBC (Bld) [#/Vol] 4.41 10*6/uL Normal Male: 4.40-5.90; Female: 3.80-5.20 [facility] Comment on above: Performed By: #### L [id number] ####Manager Sas: KEMAR ABEBE ([phone])[facility]AMPUSWarren [facility] (SBHLAB)[address] WBC (Bld) [#/Vol] 12.9 10*3/uL High 3.6-10.7 [facility] Comment on above: Performed By: #### L [id number] ####Manager Sas: KEMAR ABEBE ([phone])[facility] CAMPUSWarren [facility] (SBHLAB)[address] COMPLETE URINALYSIS WITH REF KAYE TO CULTUREon 07-10-2025 BACTERIA (#/HPF) IN URINE Few Abnormal Negative [facility] Comment on above: Performed By: #### L [id number] ####Manager Sas: MARCELA LUCERO ([phone])[facility] (SACLAB)[address] [place] [address]#### [id number] ####Manager Sas: KEMAR ABEBE ([phone])[facility] (SBAB)[address] [place] [address] BILIRUBIN, TOTAL PRESENCE IN URINE Negative Normal Negative [facility] Comment on above: Performed By: #### L [id number] ####Manager Sas: MARCELA LUCERO ([phone])[facility] (SAC[facility])[address] [place] [address]#### [id number] ####Manager Sas: KEMAR ABEBE ([phone])[facility] ([facility]ITALAB)[address] [place] [address] Clarity (U) Clear Normal Clear [facility] Comment on above: Performed By: #### L [id number] ####Manager Sas: MARCELA LUCERO ([phone])[facility] ([facility]AC[facility])[address] [place] [address]#### [id number] ####Manager Sas: KEMAR ABEBE ([phone])[facility] ([facility])[address] [place] [address] Color (U) Light Yellow Normal Lt. Yellow [facility] Comment on above: Performed By: #### L [id number] ####Manager Sas: MARCELA LUCERO ([phone])[facility] ([facility]AC[facility])[address] [place] [address]#### [id number] ####Manager Sas: KEMAR ABEBE ([phone])[facility] ([facility])[address] [place] [address] Glucose (U) [Mass/Vol] 300 mg/dL Abnormal Janey l (<70) [facility] Comment on above: Performed By: #### L [id number] ####Manager Sas: MARCELA LUCERO ([phone])[facility] ([facility])[address] [place] [address]#### [id number] ####Manager Sas: KEMAR ABEBE ([phone])[facility] CAMPUSWarren [facility]ENTERJ[facility] (SBHLAB)[address] [place] [address] HEMOGLOBIN PRESENCE IN URINE Negative Normal Negative [facility] Comment on above: Performed By: #### L [id number] ####Manager Sas: MARCELA LUCERO ([phone])[facility] ([facility])[address] [place] [address]#### [id number] ####Manager Sas: KEMAR ABEBE ([phone])[facility] CAMPUSA [facility]ON[facility] (SBHLAB)[address] [place] [address] Ketones Ql (U) 10 mg/dL Abnormal Negative [facility] Comment on above: Performed By: #### L [id number] ####Manager Sas: MARCELA LUCERO ([phone])[facility] ([facility])[address] [place] [address]#### [id number] ####Manager Sas: KEMAR ABEBE ([phone])[facility]BHONORHE[facility] (SBHLAB)[address] [place] [address] LEUKOCYTE ESTERASE PRESENCE IN URINE BY TEST STRIP 75 Kat/uL Abnormal Negative [facility] Comment on above: Performed By: #### L [id number] ####Manager Sas: MARCELA LUCERO ([phone])[facility] ([facility])[address] [place] [address]#### [id number] ####Manager Sas: KEMAR ABEBE ([phone])[facility] (SBHLAB)[address] [place] [address] MUCUS (#/LPF) IN URINE SEDIMENT Few Normal Negative [facility] Comment on above: Performed By: #### L [id number] ####Manager Sas: MARCELA LUCERO ([phone])[facility] ([facility])[address] [place] [address]#### [id number] ####Manager Sas: KEMAR ABEBE ([phone])[facility] CAMPUSA [facility]ERIUN[facility] CAN[facility] CENTERJermaine (SBHLAB)[address] [place] [address] NITRITE PRESENCE IN URINE Negative Normal Negative [facility] Comment on above: Performed By: #### L [id number] ####Manager Sas: MARCELA LUCERO ([phone])[facility] (SAC[facility])[address] [place] [address]#### [id number] ####Manager Sas: KEMAR ABEBE ([phone])[facility] (SBHL[facility])[address] [place] [address] pH (U) 5.0 [pH] Normal 5.0-8.0 [facility] Comment on above: Performed By: #### L [id number] ####Manager Sas: MARCELA LUCERO ([phone])[facility] ([facility])[address] [place] [address]#### [id number] ####Manager Sas: KEMAR ABEBE ([phone])[facility] (HLAB)[address] [place] [address] Protein (U) [Mass/Vol] 30 mg/dL Abnormal Negative [facility] Comment on above: Performed By: #### L [id number] ####Manager Sas: MARCELA LUCERO ([phone])[facility] ([facility])[address] [place] [address]#### [id number] ####Manager Sas: KEMAR ABEBE ([phone])[facility] (SBHLAB)[address] [place] [address] RBC (#/HPF) IN URINE SEDIMENT 0-2 Normal 0-2 [facility] Comment on above: Performed By: #### L [id number] ####Manager Sas: MARCELA LUCERO ([phone])[facility] ([facility] [place] [address]#### [id number] ####Manager Sas: KEMAR [phone])[facility] ([facility])[address] [place] [address] Specific gravity (U) [Rel density] 1.017 Normal 1.005-1.030 [facility] Comment on above: Result Comment: MARIE Askew COMMENTS:This specimen has been reflexed to urine culture. Performed By: #### L [id number] ####Manager Sas: MARCELA LUCERO ([phone])[facility] ([facility])[address] [place] [address]#### [id number] ####Manager Sas: KEMAR ABEBE ([phone])[facility] ([facility])[address] [place] [address] SQUAMOUS EPITHELIAL CELLS (#/HPF) IN URINE SEDIMENT 0-2 Normal 3-5 [facility] Comment on above: Performed By: #### L AB239 ####Manager Sas: MARCELA LUCERO ([phone])[facility] ([facility])[address] [place] [address]#### [id number] ####Manager Sas: KEMAR ABEBE ([phone])[facility] ([facility])[address] [place] [address] UROBILINOGEN (MG/DL) IN URINE Normal Normal Normal (0-1) [facility] Comment on above: Performed By: #### L AB239 ####Manager Sas: MARCELA LUCERO ([phone])[facility] ([facility])[address] [place] [address]#### [id number] ####Manager Sas: KEMAR ABEBE ([phone])[facility] ([facility])[address] [place] [address] WBC (LEUKOCYTE) (#/HPF) IN URINE SEDIMENT 11-25 Abnormal 0-5 [facility] Comment on above: Performed By: #### L AB239 ####Manager Sas: MARCELA LUCERO ([phone])[facility] ([facility])[address] [place] [address]#### [id number] ####Manager Sas: KEMAR ABEBE ([phone])[facility] [place] ([facility])[address] COMPREHENSIVE METABOLIC PANE Gigi 07-10-2025 Albumin [Mass/Vol] 3.3 g/dL Low 3.5-5.0 [facility] Comment on above: Performed By: #### L AB17, LAB99, [id number], [id number] ####Manager Sas: KEMAR ABEBE ([phone])[facility] [place] ([facility])[address] ALP [Catalytic activity/Vol] 161 U/L Normal [facility] Comment on above: Performed By: #### L AB17, LAB99, [id number], [id number] ####Manager Sas: KEMAR ABEBE ([phone])[facility] [place] ([facility])[address] ALT [Catalytic activity/Vol] 17 U/L Normal [facility] Comment on above: Performed By: #### L AB17, LAB99, [id number], [id number] ####Manager Sas: KEMAR ABEBE ([phone])[facility] ([facility])[address] Anion gap [Moles/Vol] 11 mmol/L Normal 3-13 [facility] Comment on above: Performed By: #### L AB17, LAB99, [id number], [id number] ####Manager Sas: KEMAR ABEBE ([phone])[facility] [place] ([facility])[address] [place] [address] [place] AST [Catalytic activity/Vol] 16 U/L Normal <34 [facility] Comment on above: Performed By: #### L AB17, LAB99, [id number], [id number] ####Manager Sas: KEMAR ABEBE ([phone])[facility] [place] ([facility])[address] [place] [address] [place] Bilirubin [Mass/Vol] 0.6 mg/dL Normal <1.2 [facility] Comment on above: Performed By: #### L AB17, LAB99, [id number], [id number] ####Manager Sas: KEMAR ABEBE ([phone])[facility] ([facility])[address] Calcium [Mass/Vol] 8.7 mg/dL Normal 8.4-10.2 [facility] Comment on above: Performed By: #### L AB17, LAB99, [id number], [id number] ####Manager Sas: KEMAR ABEBE ([phone])[facility] ([facility])[address] Chloride [Moles/Vol] 99 mmol/L Normal 98-107 [facility] Comment on above: Performed By: #### Elijah AB17, LAB99, [id number], [id number] ####Manager Sas: KEMAR ABEBE ([phone])[facility] ([facility])[address] CO2 [Moles/Vol] 29 mmol/L Normal 22-29 [facility] Comment on above: Performed By: #### L AB17, LAB99, [id number], [id number] ####Manager Sas: KEMAR ABEBE ([phone])[facility] ([facility])[address] Creatinine [Mass/Vol] 0.76 mg/dL Normal [facility] Comment on above: Performed By: #### L AB17, LAB99, [id number], [id number] ####Manager Sas: KEMAR ABEBE ([phone])[facility] ([facility])[address] GLOMERULAR FILTRATION RATE ML/MIN/1.73 SQ M.PREDICTED >90.0 Normal >60.0 [facility] Comment on above: Result Comment: Calc ulation based on the Chronic Kidney Disease Epidemiology Collaboration (CKD-EPI) equation refit without adjustment for race Performed By: #### Elijah AB17, LAB99, [id number], [id number] ####Manager Sas: KEMAR ABEBE ([phone])[facility] ([facility])[address] Glucose [Mass/Vol] 322 mg/dL High 74-100 [facility] Comment on above: Performed By: #### Elijah AB17, LAB99, [id number], [id number] ####Manager Sas: KEMAR ABEBE ([phone])[facility] ([facility])[address] Potassium [Moles/Vol] 4.5 mmol/L Normal 3.5-5.1 [facility] Comment on above: Result Comment: [facility] potassium values may be up to 0.5 mmol/L lower than serum values. Performed By: #### Elijah AB17, LAB99, [id number], [id number] ####Manager Sas: KEMAR ABEBE ([phone])[facility] ([facility])[address] [place] [address] Protein [Mass/Vol] 7.0 g/dL Normal 6.4-8.3 [facility] Comment on above: Performed By: #### Elijah AB17, LAB99, [id number], [id number] ####Manager Sas: KEMAR ABEBE ([phone])[facility] ([facility])[address] [place] [address] [place] Sodium [Moles/Vol] 139 mmol/L Normal 136-145 [facility] Comment on above: Performed By: #### Elijah AB17, LAB99, [id number], [id number] ####Manager Sas: KEMAR ABEBE ([phone])[facility] ([facility])[address] Urea nitrogen [Mass/Vol] 19 mg/dL Normal 9-23 [facility] Comment on above: Performed By: #### Elijah AB17, LAB99, [id number], [id number] ####Manager Sas: KEMAR MOMINHiginioSAAD ([phone])[facility] ([facility])[address] [place] [address] CT ABDOMEN PELVIS W CONTRAST on 07-10-2025 CT ABDOMEN PELVIS W CONTRAST Normal [facility] CT Abdomen and Pelvis W cont rast Erica 07-10-2025 1. No acute findings or significant interval change, including cholelithiasis. Please see above for further details. Report Dictated on Electronically Signed By: Joel Haddad MD Electronically Signed Date/Time: 07/10/2025 8:23 PM EDT [facility] Patient Name: WILL ALVARADO : 1965 [...] again noted suggesting diastatic-type ventral hernia, similar. [facility] Joel Haddad MD - 07/10/2025 Patient Name: WILL JACINTO : 1965 Exam Date/Time: 07/10/2025 19:18 Procedure: [...] Electronically Signed Date/Time: 07/10/2025 8:[address] [facility] Radiology Study observation (narrative) [facility] [email or web address] CT Abdomen and Pelvis W cont rast IVOrdered By: Joel Haddad on 07-10-2025 [facility] [email or web address] Work Phone: Comprehensive metabolic 1998 panelon 07-10-2025 Albumin [Mass/Vol] 3.3 g/dL Low 3.5 - 5.0 g/dL [email or web address] ALP [Catalytic activity/Vol] 161 U/L [email or web address] ALT [Catalytic activity/Vol] 17 U/L [email or web address] [email or web address] Anion gap [Moles/Vol] 11 mmol/L 3 - 13 mmol/L [facility] AST [Catalytic activity/Vol] 16 U/L NINF - 34 U/L [email or web address] Bilirubin [Mass/Vol] 0.6 mg/dL NINF - 1.2 mg/dL [facility] Calcium [Mass/Vol] 8.7 mg/dL 8.4 - 10. 2 mg/dL [facility] Chloride [Moles/Vol] 99 mmol/L 98 - 10 7 mmol/L [facility] CO2 [Moles/Vol] 29 mmol/L 22 - 29 mmol/L [facility] Creatinine [Mass/Vol] 0.76 mg/dL [facility] GFR/1.73 sq M.predicted (S/P/Bld) [Vol rate/Area] - PINF [facility] Comment on above: Calculation based on the Chronic Kidney Disease Epidemiology Collaboration (CKD-EPI) equation refit without adjustment for race Glucose [Mass/Vol] 322 mg/dL High 74 - 100 mg/dL [facility] Potassium [Moles/Vol] 4.5 mmol/L 3.5 - 5.1 mmol/L [facility] Comment on above: Plasma potassium helen ues may be up to 0.5 mmol/L lower than serum values. Protein [Mass/Vol] 7 g/dL 6.4 - 8.3 g/dL [facility] Sodium [Moles/Vol] 139 mmol/L 136 - 145 mmol/L [facility] Urea nitrogen [Mass/Vol] 19 mg/dL 9 - 23 mg/dL [facility] ED Nursing Noteon 07-10-2025 ED Nursing Note Pt here to the ER vi a EMS from SNF c/o headache and nausea for the last couple of days. Normal [facility] ED Provider Noteon ED Provider Note Normal [facility] HIGH SENSITIVITY TROPONIN, S ERIAL BASELINEon 07-10-2025 TROPONIN HS SERIAL BASELINE <3 Normal [facility] Comment on above: Result Comment: In i ndividuals presenting with symptoms > 2h, a baseline troponin <= 5 ng/L suggests acutecardiac injury is unlikely and further serial testing is generally not indicated. Performed By: #### L AB17, LAB99, [id number], [id number] ####Manager Sas: KEMAR ABEBE ([phone])[facility] ([facility])[address] [place] [address] HIGH SENSITIVITY TROPONIN, S ERIAL, SECOND TESTon 07-10-2025 2H TROPONIN HS (SERIAL 2ND TROPONIN) <3 Normal [facility] Comment on above: Result Comment: Delt a value was unable to be calculated as both baseline and serial troponin tests were below the level of quantitation. As both baseline and 2h troponin values are below the level of quantitation, acute cardiac injury is unlikely. Performed By: #### L [id number] ####Manager Sas: KEMAR ABEBE ([phone])[facility] ([facility])[address] LIPASEon 07-10-2025 Lipase [Catalytic activity/Vol] 8 U/L Normal <55 [facility] Comment on above: Performed By: #### L AB17, LAB99, [id number], [id number] ####Manager Sas: KEMAR ABEBE ([phone])[facility] ([facility])[address] [place] [address] Laboratory - Chemistry and C hemistry - challengeon 07-10-2025 Beta hydroxybutyrate [Mass/Vol] 7.3 mg/dL High NINF - 2.8 mg/dL [facility] Lipase [Catalytic activity/Vol] 8 U/L NINF - 55 U/L [facility] Laboratory - Chemistry and C hemistry - challengeOrdered By: Denia Dailey on 07-10-2025 Base excess Calc (BldV) [Moles/Vol] 6.8 mmol/L High -3.0 - 3.0 mmol/L [facility] CO2 (BldV) [Partial pressure] 58.4 mm[Hg] High [facility] CO2 [Moles/Vol] 35.4 mmol/L High 23.0 - 30.0 mmol/L [facility] HCO3 (Bld) [Moles/Vol] 33.6 mmol/L High 21.0 - 30.0 mmol/L [facility] Oxygen (BldV) [Partial pressure] 73 mm[Hg] mm Hg [facility] pH (BldV) 7.378 [pH] 7.320 - 7.420 [facility] Laboratory - Hematology and Cell countsOrdered By: Denia Dailey on 07-10-2025 Hemoglobin (Bld) [Mass/Vol] 12.9 g/dL 7.0 g/dl [facility] Lipase [Catalytic activity/V ol]on 07-10-2025 Interpretation and review of laboratory results Normal [facility] No Panel Informationon 07-10 2h Troponin HS (Serial 2nd Troponin) ng/L ng/L [facility] Comment on above: Delta value was unab le to be calculated as both baseline and serial troponin tests were below the level of quantitation. As both baseline and 2h troponin values are below the level of quantitation, acute cardiac injury is unlikely. [facility] Troponin HS Serial Baseline ng/L ng/L [facility] Comment on above: In individuals prese nting with symptoms > 2h, a baseline troponin <= 5 ng/L suggests acute cardiac injury is unlikely and further serial testing is generally not indicated. [facility] Interpretation and review of laboratory results Abnormal [facility] No Panel InformationOrdered By: Denia Dailey on 07-10-2025 Amount Of Oxygen 2L [facility] Interpretation and review of laboratory results Abnormal [facility] Source Of Oxygen Nasal Cannula (LPM) [facility] Assessment of oxygenation is best done with an arterial blood gas determination. Reference ranges for pO2, bicarbonate, and base excess are for mixed venous blood. Specimens drawn from a peripheral vein will often have higher values. [facility] URINE CULTUREon 07-10-2025 Bacteria identified Cx Nom (U) Normal [facility] Comment on above: Performed By: #### L [id number] ####Manager Sas: MARCELA LUCERO ([phone])[facility] ([facility])[address] [place] [address]#### [id number] ####Manager Sas: KEMAR ABEBE ([phone])[facility] ([facility])[address] [place] [address] Urinalysis complete panel (U )Ordered By: Erickson Olmedo on 07-10-2025 Bacteria LM.HPF (Urine sed) [#/Area] Few Abnormal Negative /HPF [facility] Bilirubin Ql (U) Negative Negative mg/dL [facility] Clarity (U) Clear Clear [facility] Color (U) Light Yellow Lt. Yellow [facility] Epithelial cells.squamous LM.HPF (Urine sed) [#/Area] 0-2 [facility] Glucose Ql (U) 300 mg/dL Abnormal Normal (<70) [facility] Hemoglobin Ql (U) Negative Negative mg/dL [facility] Interpretation and review of laboratory results Abnormal [facility] Ketones (U) [Mass/Vol] 10 mg/dL Abnormal Negative [facility] Leukocyte esterase Test strip Ql (U) 75 Abnormal Negative Kat/uL [facility] Mucus LM.HPF (Urine sed) [#/Area] Few Negative /LPF [facility] Nitrite Ql (U) Negative Negative [facility] pH (U) 5.0 [pH] 5.0 - 8.[address] [facility] Protein (U) [Mass/Vol] 30 mg/dL Abnormal Negative [facility] RBC LM.HPF (Urine sed) [#/Area] 0-2 [facility] Specific gravity (U) [Rel density] 1.017 1.005 - 1.030 [facility] Urobilinogen (U) [Mass/Vol] Normal Normal (0-1) mg/dL [facility] WBC LM.HPF (Urine sed) [#/Area] 11-[address] [facility] This specimen has be en reflexed to urine culture. [facility] Urinalysis, Routine (Dipstic k)on 07-10-2025 BILIRUBIN URINE Negative Normal Negative [facility] Comment on above: Order Comment: 103.1 Performed By: #### L 100.0500, L500.4050 #### [facility] [address] [place], [place], [id number] Clarity (U) Clear Normal Clear [facility] Comment on above: Order Comment: 103.1 Performed By: #### L 100.0500, L500.4050 #### [facility] [address] [place], [address] Color (U) Yellow Normal Yellow [facility] Comment on above: Order Comment: 103.1 Performed By: #### L 100.0500, L500.4050 #### [facility] [address] [place], [address] GLUCOSE, UR 50 mg/dl Abnormal Normal [facility] Comment on above: Order Comment: 103.1 Performed By: #### L 100.0500, L500.4050 #### [facility] [address] [place], [address] KETONE UR Negative Normal Negative [facility] Comment on above: Order Comment: 103.1 Performed By: #### L 100.0500, L500.4050 #### [facility] [address] [place], [address] LEUK ESTERASE 25 /ul Abnormal Negative [facility] Comment on above: Order Comment: 103.1 Performed By: #### L 100.0500, L500.4050 #### [facility] [address] [place], [address] Nitrite Ql (U) Negative Normal Negative [facility] Comment on above: Order Comment: 103.1 Performed By: #### L 100.0500, L500.4050 #### [facility] [address] [place], [address] OCCULT BLOOD-UR 10 /ul Abnormal Negative [facility] Comment on above: Order Comment: 103.1 Performed By: #### L 100.0500, L500.4050 #### [facility] [address] [place], [address] pH UR 6.0 Normal 5.0 - 8.0 [facility] Comment on above: Order Comment: 103.1 Performed By: #### L 100.0500, L500.4050 #### [facility] [address] [place], [address] PROT DIPSTX 100 mg/dl Abnormal Negative [facility] Comment on above: Order Comment: 103.1 Performed By: #### L 100.0500, L500.4050 #### [facility] [address] [place], [address] SP.GR. DIPSTX 1.020 Normal 1.002-1.030 [facility] Comment on above: Order Comment: 103.1 Performed By: #### L 100.0500, L500.4050 #### [facility] [address] [place], [address] UROBILI Normal Normal Normal [facility] Comment on above: Order Comment: 103.1 Performed By: #### L 100.0500, L500.4050 #### [facility] [address] [place], [address] Vital signsOrdered By: Trever Dailey on 07-10-2025 Oxygen saturation in Venous blood 93.3 % [facility] CBC-Complete Blood Cnt No Di ffon 07-06-2025 Erythrocyte distribution width (RBC) [Ratio] 14.4 % Normal 11.6-14.6 [facility] Comment on above: Order Comment: 103.1 Performed By: #### L 100.0500, L500.4050 #### [facility] [address] [place], [address] Hematocrit (Bld) [Volume fraction] 35.3 % Low 37-47 [facility] Comment on above: Order Comment: 103.1 Performed By: #### L 100.0500, L500.4050 #### [facility] [address] [place], [address] Hemoglobin (Bld) [Mass/Vol] 10.9 g/dL Low 12.0-15.0 [facility] Comment on above: Order Comment: 103.1 Performed By: #### L 100.0500, L500.4050 #### [facility] [address] [place], [address] MCH (RBC) [Entitic mass] 26.0 pg Low 27.0-32.0 [facility] Comment on above: Order Comment: 103.1 Performed By: #### L 100.0500, L500.4050 #### [facility] [address] [place], [address] MCHC (RBC) [Mass/Vol] 30.9 g/dL Low 32-36 [facility] Comment on above: Order Comment: 103.1 Performed By: #### L 100.0500, L500.4050 #### [facility] [address] [place], [address] MCV (RBC) [Entitic vol] 84.0 fL Normal 81-99 [facility] Comment on above: Order Comment: 103.1 Performed By: #### L 100.0500, L500.4050 #### [facility] [address] [place], [address] Platelet mean volume (Bld) [Entitic vol] 10.4 fL Normal 6.2-12.0 [facility] Comment on above: Order Comment: 103.1 Performed By: #### L 100.0500, L500.4050 #### [facility] [address] [place], [address] Platelets (Bld) [#/Vol] 317 10*3/uL Normal 150-450 [facility] Comment on above: Order Comment: 103.1 Performed By: #### L 100.0500, L500.4050 #### [facility] [address] [place], [address] RBC (Bld) [#/Vol] 4.20 10*6/uL Normal 4.2-5.4 [facility] Comment on above: Order Comment: 103.1 Performed By: #### L 100.0500, L500.4050 #### [facility] [address] [place], [address] RDW SD 43.9 fl Normal 35.1-43.9 [facility] Comment on above: Order Comment: 103.1 Performed By: #### L 100.0500, L500.4050 #### [facility] [address] [place], [address] WBC (Bld) [#/Vol] 7.3 10*3/uL Normal 4.4-11.0 [facility] Comment on above: Order Comment: 103.1 Performed By: #### L 100.0500, L500.4050 #### [facility] [address] [place], [address] Comprehensive Metabolic Prof ilon 07-06-2025 Albumin [Mass/Vol] 3.7 g/dL Normal 3.5-5.0 [facility] Comment on above: Order Comment: 103.1 Performed By: #### L 100.0500, L500.4050 #### [facility] [address] [place], [address] Albumin/Globulin [Mass ratio] 1.3 {ratio} Normal 0.9-2.4 [facility] Comment on above: Order Comment: 103.1 Performed By: #### L 100.0500, L500.4050 #### [facility] [address] [place], [address] ALK PHOS 196 U/L High 35-104 [facility] Comment on above: Order Comment: 103.1 Performed By: #### L 100.0500, L500.4050 #### [facility] [address] [place], [address] ALT [Catalytic activity/Vol] 17 U/L Normal <=34 [facility] Comment on above: Order Comment: 103.1 Performed By: #### L 100.0500, L500.4050 #### [facility] [address] [place], [address] AST [Catalytic activity/Vol] 16 U/L Normal <=31 [facility] Comment on above: Order Comment: 103.1 Performed By: #### L 100.0500, L500.4050 #### [facility] [address] [place], [address] Bilirubin [Mass/Vol] 0.35 mg/dL Normal 0.00-1.30 [facility] Comment on above: Order Comment: 103.1 Performed By: #### L 100.0500, L500.4050 #### [facility] [address] [place], [address] BUN/CRE 30.4 RATIO High 10-20 [facility] Comment on above: Order Comment: 103.1 Performed By: #### L 100.0500, L500.4050 #### [facility] [address] [place], [address] Calcium [Mass/Vol] 9.0 mg/dL Normal 7.6-11.0 [facility] Comment on above: Order Comment: 103.1 Performed By: #### L 100.0500, L500.4050 #### [facility] [address] [place], [address] Chloride [Moles/Vol] 100 mmol/L Normal 98-108 [facility] Comment on above: Order Comment: 103.1 Performed By: #### L 100.0500, L500.4050 #### [facility] [address] [place], [address] CO2 [Moles/Vol] 27.9 mmol/L Normal 21.0-32.0 [facility] Comment on above: Order Comment: 103.1 Performed By: #### L 100.0500, L500.4050 #### [facility] [address] [place], [address] Creatinine [Mass/Vol] 0.65 mg/dL Low 0.70-1.20 [facility] Comment on above: Order Comment: 103.1 Performed By: #### L 100.0500, L500.4050 #### [facility] [address] [place], [address] GAP 9 Normal 5-15 [facility] Comment on above: Order Comment: 103.1 Performed By: #### L 100.0500, L500.4050 #### [facility] [address] [place], [address] GFR/1.73 sq M.predicted among non-blacks MDRD (S/P/Bld) [Vol rate/Area] 102 mL/min/{1.73_m2} Normal >60 [facility] Comment on above: Order Comment: 103.1 Result Comment: mL/m in/1.73m2 CKD-EPI Creatinine Equation (2020) Performed By: #### L 100.0500, L500.4050 #### [facility] [address] [place], [address] Globulin (S) [Mass/Vol] 2.9 g/dL Normal 2.2-4.2 [facility] Comment on above: Order Comment: 103.1 Performed By: #### L 100.0500, L500.4050 #### [facility] [address] [place], [address] Glucose [Mass/Vol] 166 mg/dL High 70-99 [facility] Comment on above: Order Comment: 103.1 Performed By: #### L 100.0500, L500.4050 #### [facility] [address] [place], [address] Potassium [Moles/Vol] 4.0 mmol/L Normal 3.3-5.1 [facility] Comment on above: Order Comment: 103.1 Performed By: #### L 100.0500, L500.4050 #### [facility] [address] [place], [address] Sodium [Moles/Vol] 137 mmol/L Normal 133-145 [facility] Comment on above: Order Comment: 103.1 Performed By: #### L 100.0500, L500.4050 #### [facility] [address] [place], [address] T PROT 6.6 g/dL Normal 5.9-8.4 [facility] [facility] Comment on above: Order Comment: 103.1 Performed By: #### L 100.0500, L500.4050 #### [facility] [address] [place], [address] Urea nitrogen [Mass/Vol] 20 mg/dL High 4-19 [facility] Comment on above: Order Comment: 103.1 Performed By: #### L 100.0500, L500.4050 #### [facility] [address] [place], [address] Hemoglobin A1con 07-06-2025 HbA1c (Bld) [Mass fraction] 7.5 % High <=5.6 [facility] Comment on above: Order Comment: 103.1 Result Comment: Norm al < 5.7 % Prediabetic 5.7 - 6.4 % Diabetic >or= 6.5 % Please note range changes. Performed By: #### L 100.0500, L500.4050 #### [facility] [address] [place], [address] Lipid Profileon 07-06-2025 CHOL:HDL 3.49 Normal [facility] Comment on above: Order Comment: 103.1 Performed By: #### L 100.0500, L500.4050 #### [facility] [address] [place], [address] Cholesterol [Mass/Vol] 162 mg/dL Normal <=[address] [facility] Comment on above: Order Comment: 103.1 Result Comment: Chol esterol level, Desirable <200 mg/dL Borderline high cholesterol 200-239 mg/dL High cholesterol >=240 mg/dL Recommendations of the NCEP Adult Treatment Panel for the following risk-cutoff thresholds for the [place] population. Performed By: #### L 100.0500, L500.4050 #### [facility] [address] [place], [address] Cholesterol in HDL [Mass/Vol] 46 mg/dL Normal [facility] Comment on above: Order Comment: 103.1 Result Comment: Sophy onal Cholesterol Education Program (NCEP) guidelines: <40 mg/dL: Low HDL-cholesterol (major risk factor for CHD) >= 60 mg/dL: High HDL-cholesterol (negative risk factor for CHD) HDL-cholesterol is affected by a number of factors, e.g. smoking, exercise, hormones, sex and age. Performed By: #### L 100.0500, L500.4050 #### [facility] [address] [place], [address] Cholesterol in LDL [Mass/Vol] 88 mg/dL Normal [facility] Comment on above: Order Comment: 103.1 Result Comment: Bord jaykdc=035-467 mg/dL Higher Lamd=073 mg/dL or greater Friedwald Equation for LDL-C Performed By: #### L 100.0500, L500.4050 #### [facility] [address] [place], [address] Cholesterol in VLDL [Mass/Vol] 28 mg/dL Normal 5-40 [facility] Comment on above: Order Comment: 103.1 Performed By: #### L 100.0500, L500.4050 #### [facility] [address] [place], [address] Triglyceride [Mass/Vol] 139 mg/dL Normal [facility] Comment on above: Order Comment: 103.1 Result Comment: The drugs N-Acetylcysteine and Metamizole may falsely depress this assay. Normal range: <150 mg/dL Borderline High: 150-199 mg/dL High: 200-499 mg/dL Very High: >500 mg/dL Performed By: #### L 100.0500, L500.4050 #### [facility] [address] [place], [address] Microalb:Creat Ratio,Random URon 07-06-2025 Creatinine [Mass/Vol] 45.20 mg/dL Normal 28.00- 217.0 0 [facility] Comment on above: Performed By: #### L 100.0500, L500.4050 #### [facility] [address] [place], [address] MALB:CREAT 63.9 mg/g CRE High <30 mg/g CRE [facility] Comment on above: Performed By: #### L 100.0500, L500.4050 #### [facility] [address] [place], [address] MICROALBUMIN,UR 28.9 mg/L Normal <20 mg/L [facility] Comment on above: Performed By: #### L 100.0500, L500.4050 #### [facility] [address] [place], [place], [address] 36on 07-05-2025 36 Appointment schedule d on 07/26 at 11am [address] 07-04-2025 36 Patient's BGL 04/26-07/02/2025 [place] [address] I called the facilit y to request another copy. [place] 5059906-29-2025 36 Downloaded blood glu cose log and insulin administration MAR to media tab for the period of 06/08 through 06/29 for provider review. [place] [address] Spoke with Susan KIM at [facility] and requested a new BGL with accompanying insulin administration record for 06/08-06/29 for provider review. States she will send it herself. Will watch for information and upload into media tab. [place] 5059906-28-2025 36 The pages are cut of f I cannot see the doses completely [address] 06-27-2025 Patient's BGL [place] 5059906-26-2025 36 Spoke with Sheri villafeurte the facility. She will re-fax the insulin administration records for 05/29-06/18 for comparison with the BG log sent previously. [address] 06-22-2025 36 Unfortunately half t he document is cut off I cannot see what the Humulin U-500 base dose is, its on 1 page On the second page I can see the sliding scale [facility] 36 Scanned faxed MAR fr om facility into media tab for dates 06/08/25 - 06/22/[address] 06-21-2025 36 Spoke with Sheri kelley t the facility who says she will fax the MAR record for 05/29 through 06/18 for comparison with the BGL by provider. Fax number provided was [phone] 06-20-2025 36 Spoke with RN caring for Maria Luisa at the facility regarding need for MAR for 05/29 through 06/18 to be faxed for provider review for use of SSI and any missed doses. She states she will fax the MAR records from 05/29 - 06/18 to [phone]. [place] [address] Please ask for MAR a nd med list I need to know if SS is ever used. Thank you [address] 06-19-2025 36 Patient's BGL [address] 06-14-2025 36 Faxed detailed insul in instructions to Nabil at [facility] as requested. Confirmation received via email. See media tab. [address] 06-13-[address] 06-12-2025 36 Phoned [facility] and spoke with pt's nurse, Sheri. Released the message to her. Agrees to fax her BGL and pt's med rec in 2 weeks to our office [phone] [place] [id number] [facility] [address] 06-11-2025 36 Patient's BGL [facility] Basic Metabolic Profile (BMP )on 06-11-2025 BUN/CRE 23.2 RATIO High 10-20 [facility] Comment on above: Order Comment: 103.1 Performed By: #### L 100.0500, L500.2500 #### [facility] [address] [place], [address] Calcium [Mass/Vol] 9.1 mg/dL Normal 7.6-11.0 [facility] Comment on above: Order Comment: 103.1 Performed By: #### L 100.0500, L500.2500 #### [facility] [address] [place], [address] Chloride [Moles/Vol] 104 mmol/L Normal 98-108 [facility] Comment on above: Order Comment: 103.1 Performed By: #### L 100.0500, L500.2500 #### [facility] [address] [place], [address] CO2 [Moles/Vol] 29.0 mmol/L Normal 21.0-32.0 [facility] Comment on above: Order Comment: 103.1 Performed By: #### L 100.0500, L500.2500 #### [facility] [address] [place], [address] Creatinine [Mass/Vol] 0.67 mg/dL Low 0.70-1.20 [facility] Comment on above: Order Comment: 103.1 Performed By: #### L 100.0500, L500.2500 #### [facility] [address] [place], [address] GAP 9 Normal 5-15 [facility] Comment on above: Order Comment: 103.1 Performed By: #### L 100.0500, L500.2500 #### [facility] [address] [place], [address] GFR/1.73 sq M.predicted among non-blacks MDRD (S/P/Bld) [Vol rate/Area] 101 mL/min/{1.73_m2} Normal >60 [facility] Comment on above: Order Comment: 103.1 Result Comment: mL/m in/1.73m2 CKD-EPI Creatinine Equation (2020) Performed By: #### L 100.0500, L500.2500 #### [facility] [address] [place], [address] Glucose [Mass/Vol] 136 mg/dL High 70-99 [facility] Comment on above: Order Comment: 103.1 Performed By: #### L 100.0500, L500.2500 #### [facility] [address] [place], [address] Potassium [Moles/Vol] 4.3 mmol/L Normal 3.3-5.1 [facility] Comment on above: Order Comment: 103.1 Performed By: #### L 100.0500, L500.2500 #### [facility] [address] [place], [address] Sodium [Moles/Vol] 142 mmol/L Normal 133-145 [facility] Comment on above: Order Comment: 103.1 Performed By: #### L 100.0500, L500.2500 #### [facility] [address] [place], [address] Urea nitrogen [Mass/Vol] 16 mg/dL Normal 4-19 [facility] Comment on above: Order Comment: 103.1 Performed By: #### L 100.0500, L500.2500 #### [facility] [address] [place], [address] CBC-Complete Blood Cnt No Di ffon 06-11-2025 Erythrocyte distribution width (RBC) [Ratio] 14.7 % High 11.6-14.6 [facility] Comment on above: Order Comment: 103.1 Performed By: #### L 100.0500, L500.2500 #### [facility] [address] [place], [address] Hematocrit (Bld) [Volume fraction] 34.7 % Low 37-47 [facility] Comment on above: Order Comment: 103.1 Performed By: #### L 100.0500, L500.2500 #### [facility] [address] [place], [address] Hemoglobin (Bld) [Mass/Vol] 10.5 g/dL Low 12.0-15.0 [facility] Comment on above: Order Comment: 103.1 Performed By: #### L 100.0500, L500.2500 #### [facility] [address] [place], [address] MCH (RBC) [Entitic mass] 26.5 pg Low 27.0-32.0 [facility] Comment on above: Order Comment: 103.1 Performed By: #### L 100.0500, L500.2500 #### [facility] [address] [place], [address] MCHC (RBC) [Mass/Vol] 30.3 g/dL Low 32-36 [facility] Comment on above: Order Comment: 103.1 Performed By: #### L 100.0500, L500.2500 #### [facility] [address] [place], [address] MCV (RBC) [Entitic vol] 87.6 fL Normal 81-99 [facility] Comment on above: Order Comment: 103.1 Performed By: #### L 100.0500, L500.2500 #### [facility] [address] [place], [address] Platelet mean volume (Bld) [Entitic vol] 10.3 fL Normal 6.2-12.0 [facility] Comment on above: Order Comment: 103.1 Performed By: #### L 100.0500, L500.2500 #### [facility] [address] [place], [address] Platelets (Bld) [#/Vol] 295 10*3/uL Normal 150-450 [facility] Comment on above: Order Comment: 103.1 Performed By: #### L 100.0500, L500.2500 #### [facility] [address] [place], [address] RBC (Bld) [#/Vol] 3.96 10*6/uL Low 4.2-5.4 [facility] Comment on above: Order Comment: 103.1 Performed By: #### L 100.0500, L500.2500 #### [facility] [address] [place], [address] RDW SD 47.3 fl High 35.1-43.9 [facility] Comment on above: Order Comment: 103.1 Performed By: #### L 100.0500, L500.2500 #### [facility] [address] [place], [address] WBC (Bld) [#/Vol] 7.6 10*3/uL Normal 4.4-11.0 [facility] Comment on above: Order Comment: 103.1 Performed By: #### L 100.0500, L500.2500 #### [facility] [address] [place], [address] [id number] 06-07-2025 [id number] Normal [facility] 36on 06-07-2025 36 Patient's BGL Normal [facility] Anesthesia Noteon 06-07-2025 Anesthesia Note Normal [facility] Anesthesia Note Normal [facility] Nursing Noteon 06-07-2025 Nursing Note Normal [facility] Op Noteon 06-07-2025 Op Note Normal [facility] on 06-04-2025 36 Normal [facility] on 06-01-2025 36 Normal [facility] 36on 05-31-2025 36 Patient's BGL Normal [facility] 36 Normal [facility] 36on 05-18-2025 36 [facility] and talk with nurse, she don't know and transfer to pharmacogeneticist, put me in hold for 25 min and never answer, if they call back please ask what they need . Thank you. [facility] 36 Not sure what is jayne ng asked. Did not order dietary restrictions, only recommendations. Normal [facility] 36on 05-14-2025 36 Please advise! [facility] 36 Normal [facility] Basic Metabolic Profile (BMP )on 05-10-2025 BUN/CRE 25.7 RATIO High 10-20 [facility] Comment on above: Order Comment: 103.1 Performed By: #### L 100.0500, L500.4050 #### [facility] [address] [place], [address] Calcium [Mass/Vol] 8.8 mg/dL Normal 7.6-11.0 [facility] Comment on above: Order Comment: 103.1 Performed By: #### L 100.0500, L500.4050 #### [facility] [address] [place], [address] Chloride [Moles/Vol] 103 mmol/L Normal 98-108 [facility] Comment on above: Order Comment: 103.1 Performed By: #### L 100.0500, L500.4050 #### [facility] [address] [place], [address] CO2 [Moles/Vol] 26.2 mmol/L Normal 21.0-32.0 [facility] Comment on above: Order Comment: 103.1 Performed By: #### L 100.0500, L500.4050 #### [facility] [address] [place], [address] Creatinine [Mass/Vol] 0.64 mg/dL Low 0.70-1.20 [facility] Comment on above: Order Comment: 103.1 Performed By: #### L 100.0500, L500.4050 #### [facility] [address] [place], [address] GAP 10 Normal 5-15 [facility] Comment on above: Order Comment: 103.1 Performed By: #### L 100.0500, L500.4050 #### [facility] [address] [place], [address] GFR/1.73 sq M.predicted among non-blacks MDRD (S/P/Bld) [Vol rate/Area] 102 mL/min/{1.73_m2} Normal >60 [facility] Comment on above: Order Comment: 103.1 Result Comment: mL/m in/1.73m2 CKD-EPI Creatinine Equation (2020) Performed By: #### L 100.0500, L500.4050 #### [facility] [address] [place], [address] Glucose [Mass/Vol] 202 mg/dL High 70-99 [facility] Comment on above: Order Comment: 103.1 Performed By: #### L 100.0500, L500.4050 #### [facility] [address] [place], [address] Potassium [Moles/Vol] 4.5 mmol/L Normal 3.3-5.1 [facility] Comment on above: Order Comment: 103.1 Performed By: #### L 100.0500, L500.4050 #### [facility] [address] [place], [address] Sodium [Moles/Vol] 140 mmol/L Normal 133-145 [facility] Comment on above: Order Comment: 103.1 Performed By: #### L 100.0500, L500.4050 #### [facility] [address] [place], [address] Urea nitrogen [Mass/Vol] 16 mg/dL Normal 4-19 [facility] Comment on above: Order Comment: 103.1 Performed By: #### L 100.0500, L500.4050 #### [facility] [address] [place], [address] CBC-Complete Blood Cnt No Di ffon 05-10-2025 Erythrocyte distribution width (RBC) [Ratio] 14.9 % High 11.6-14.6 [facility] Comment on above: Order Comment: 103.1 Performed By: #### L 100.0500, L500.2500 #### [facility] [address] [place], [address] Hematocrit (Bld) [Volume fraction] 34.2 % Low 37-47 [facility] Comment on above: Order Comment: 103.1 Performed By: #### L 100.0500, L500.2500 #### [facility] [address] [place], [address] Hemoglobin (Bld) [Mass/Vol] 10.5 g/dL Low 12.0-15.0 [facility] Comment on above: Order Comment: 103.1 Performed By: #### L 100.0500, L500.2500 #### [facility] [address] [place], [address] MCH (RBC) [Entitic mass] 26.9 pg Low 27.0-32.0 [facility] Comment on above: Order Comment: 103.1 Performed By: #### L 100.0500, L500.2500 #### [facility] [address] [place], [address] MCHC (RBC) [Mass/Vol] 30.7 g/dL Low 32-36 [facility] Comment on above: Order Comment: 103.1 Performed By: #### L 100.0500, L500.2500 #### [facility] [address] [place], [address] MCV (RBC) [Entitic vol] 87.5 fL Normal 81-99 [facility] Comment on above: Order Comment: 103.1 Performed By: #### L 100.0500, L500.2500 #### [facility] [address] [place], [address] Platelet mean volume (Bld) [Entitic vol] 10.1 fL Normal 6.2-12.0 [facility] Comment on above: Order Comment: 103.1 Performed By: #### L 100.0500, L500.2500 #### [facility] [address] [place], [address] Platelets (Bld) [#/Vol] 318 10*3/uL Normal 150-450 [facility] Comment on above: Order Comment: 103.1 Performed By: #### L 100.0500, L500.2500 #### [facility] [address] [place], [address] RBC (Bld) [#/Vol] 3.91 10*6/uL Low 4.2-5.4 [facility] Comment on above: Order Comment: 103.1 Performed By: #### L 100.0500, L500.2500 #### [facility] [address] [place], [address] RDW SD 47.7 fl High 35.1-43.9 [facility] Comment on above: Order Comment: 103.1 Performed By: #### L 100.0500, L500.2500 #### [facility] [address] [place], [address] WBC (Bld) [#/Vol] 6.5 10*3/uL Normal 4.4-11.0 [facility] Comment on above: Order Comment: 103.1 Performed By: #### L 100.0500, L500.2500 #### [facility] [address] [place], [address] 36on 05-07-2025 36 [facility] and informed. Normal [facility] 36 Continue current dos es Recommend future BGLs be sent in 4 week intervals. Or sooner if experiencing hypoglycemia or persistent elevations. Normal [facility] 36 Patient's BGL Normal [facility] 36on 05-01-2025 36 [facility] and informed. Normal [facility] 36 Normal [facility] 3604-30-2025 36 Patient's BGL Normal [facility] 3604-24-2025 36 Called [facility] nurse Juliane [facility] and informed! Normal [facility] 36on 04-23-2025 36 Patient's BGL Normal [facility] 36on 04-20-2025 36 Called and relayed t he TE below to the pt's nurse. [facility] 36on 04-19-2025 36 Continue current dos es. Future blood glucose log's requested to have 2 weeks of data. [facility] 36on 04-17-2025 36 BGL downloaded in id travis for your review. Thanks [facility] 36on 04-06-2025 36 [facility]axed [facility] recommendat [facility] at fax #: [phone]. [facility] AMB POC HEMOGLOBIN A1Con HbA1c (Bld) [Mass fraction] 6.8 % Abnormal - 5.7 % [facility] HbA1c (Bld) [Mass fraction]o n 04-06-2025 Interpretation and review of laboratory results Abnormal [facility] Progress Noteon 04-06-2025 Progress Note Normal [facility] 36on 04-05-2025 36 Good Afternoon, I reviewed blood sugars for Maria Luisa, and they are mostly stable. There are no hypoglycemic events and blood sugars are not in the 300s on this log which is fantastic. No changes recommended at this time. Thanks! [facility] 36 Patient's BGL Normal [facility] 36on 03-27-2025 36 Normal [facility] 36on 03-16-2025 36 Faxed recommendation s to [facility] fax #: [phone]. [facility] 36on 03-15-2025 36 Reviewed BLG. Blood sugars are variable ranging between 117-359. No insulin dose changes. Blood sugars are improving. [facility] 3603-14-2025 36 We received recent B GL's regarding the pt, please advise. [facility] 36on 02-27-2025 36 Patient's BGL Normal [facility] Anion gap in Serum or Plasma Ordered By: Jared Guzman on 02-26-2025 Anion gap [Moles/Vol] 12 mmol/L 5-15 [facility] BUN/creatinine ratioOrdered By: Jared Guzman on 02-26-2025 Urea nitrogen/Creatinine [Mass ratio] 22.4 mg/mg High 10-20 [facility] Carbon dioxide, total [Moles /volume] in Central venous bloodOrdered By: Jared Guzman on 02-26-2025 CO2 [Moles/Vol] 25.7 mmol/L 21.0-32.0 [facility] Chloride assayOrdered By: Marcel Piper on 02-26-2025 Chloride [Moles/Vol] 101 mmol/L 98-108 [facility] GFR/1.73 sq M.predicted belinda g non-blacks MDRD (S/P/Bld) [Vol rate/Area]Ordered By: Jared Guzman on 02-26-2025 Estimated GFR (MDRD) Non-Af Amer 101 >60 [facility] Comment on above: mL/min/1.73m2 CKD-EP I Creatinine Equation (2020) Glomerular filtration rate ( GFR) estimation/1.73 sq m using serum, plasma, or whole bOrdered By: Jared Guzman on 02-26-2025 GFR/1.73 sq M.predicted among non-blacks MDRD (S/P/Bld) [Vol rate/Area] 101 mL/min/{1.73_m2} >60 [facility] Comment on above: mL/min/1.73m2 CKD-EP I Creatinine Equation (2020) Potassium (Unsp spec) [Mass/ Vol]Ordered By: Jared Guzman on 02-26-2025 Potassium [Moles/Vol] 4.0 mmol/L 3.3-5.1 [facility] Potassium measurement (mass/ volume)Ordered By: Jared Guzman on 02-26-2025 Potassium (Unsp spec) [Mass/Vol] 4.0 mmol/L 3.3-5.1 [facility] Renal Profileon 02-26-2025 Albumin [Mass/Vol] 3.7 g/dL Normal 3.5-5.0 [facility] Comment on above: Order Comment: 103.1 Performed By: #### L 100.0500, L500.4050 #### [facility] [address] [place], [address] BUN/CRE 22.4 RATIO High 10-20 [facility] Comment on above: Order Comment: 103.1 Performed By: #### L 100.0500, L500.4050 #### [facility] [address] [place], [address] Calcium [Mass/Vol] 9.1 mg/dL Normal 7.6-11.0 [facility] Comment on above: Order Comment: 103.1 Performed By: #### L 100.0500, L500.4050 #### [facility] [address] [place], [address] Chloride [Moles/Vol] 101 mmol/L Normal 98-108 [facility] Comment on above: Order Comment: 103.1 Performed By: #### L 100.0500, L500.4050 #### [facility] [address] [place], [address] CO2 [Moles/Vol] 25.7 mmol/L Normal 21.0-32.0 [facility] Comment on above: Order Comment: 103.1 Performed By: #### L 100.0500, L500.4050 #### [facility] [address] [place], [address] Creatinine [Mass/Vol] 0.68 mg/dL Low 0.70-1.20 [facility] Comment on above: Order Comment: 103.1 Performed By: #### L 100.0500, L500.4050 #### [facility] [address] [place], [address] GAP 12 Normal 5-15 [facility] Comment on above: Order Comment: 103.1 Performed By: #### L 100.0500, L500.4050 #### [facility] [address] [place], [address] GFR/1.73 sq M.predicted among non-blacks MDRD (S/P/Bld) [Vol rate/Area] 101 mL/min/{1.73_m2} Normal >60 [facility] Comment on above: Order Comment: 103.1 Result Comment: mL/m in/1.73m2 CKD-EPI Creatinine Equation (2020) Performed By: #### L 100.0500, L500.4050 #### [facility] [address] [place], [address] Glucose [Mass/Vol] 211 mg/dL High 70-99 [facility] Comment on above: Order Comment: 103.1 Performed By: #### L 100.0500, L500.4050 #### [facility] [address] [place], [address] Phosphate [Mass/Vol] 4.2 mg/dL Normal 2.7-4.5 [facility] Comment on above: Order Comment: 103.1 Performed By: #### L 100.0500, L500.4050 #### [facility] [address] [place], [address] Potassium [Moles/Vol] 4.0 mmol/L Normal 3.3-5.1 [facility] Comment on above: Order Comment: 103.1 Performed By: #### L 100.0500, L500.4050 #### [facility] [address] [place], [address] Sodium [Moles/Vol] 139 mmol/L Normal 133-145 [facility] Comment on above: Order Comment: 103.1 Performed By: #### L 100.0500, L500.4050 #### [facility] [address] [place], [address] Urea nitrogen [Mass/Vol] 15 mg/dL Normal 4-19 [facility] Comment on above: Order Comment: 103.1 Performed By: #### L 100.0500, L500.4050 #### [facility] [address] [place], [address] Serum creatinine measurement (mass/volume)Ordered By: Jared Guzman on 02-26-2025 Creatinine [Mass/Vol] 0.68 mg/dL Low 0.70-1.20 [facility] Serum glucose measurement (m ass/volume)Ordered By: Jared Guzman on 02-26-2025 Glucose [Mass/Vol] 211 mg/dL High 70-99 [facility] Serum or plasma albumin mauricio urement (mass/volume)Ordered By: Jared Guzman on 02-26-2025 Albumin [Mass/Vol] 3.7 g/dL 3.5-5.0 [facility] Serum or plasma calcium mauricio urement (mass/volume)Ordered By: Jared Guzman on 02-26-2025 Calcium [Mass/Vol] 9.1 mg/dL 7.6-11.0 [facility] Serum or plasma urea nitroge n measurement (mass/volume)Ordered By: Jared Guzman on 02-26-2025 Urea nitrogen [Mass/Vol] 15 mg/dL 4-19 [facility] Serum phosphorus measurement Ordered By: Jared Guzman on 02-26-2025 Phosphorus Level 4.2 mg/dL 2.7-4.5 [facility] Sodium levelOrdered By: Main Guzman on 02-26-2025 Sodium [Moles/Vol] 139 mmol/L 133-145 [facility] 02-16-2025 36 Faxed letter to [facility] at fax #: [phone]. [facility] 02-15-2025 36 [facility] 36 Patient's BGL [facility] 02-13-2025 36 Called [facility] to offer cancel the [facility] visit per provider. Visit canceled. [facility] 02-12-2025 36 Nurse from [facility] called to schedule Annual follow up. Follow up scheduled for 03/02/2025. Patient is non weight bearing and uses a deedee. Further question is whether they bring with deedee or ambulance cot. Please advise. [facility] 36on 02-09-2025 36 Faxed new orders to [facility] at fax #: [phone]. Normal [facility] No Panel InformationOrdered By: Corin Man on 02-09-2025 Left arm BP 146 mmHg [facility] Phone: Left TBI 0.95 [facility] Phone: Left toe pressure 138 mmHg [facility]: Right [facility] Panel Informationon 02-09 Left side [...] cuff method used due to body habitus. [employer] Supervisor Details A spectral Doppler analysis ultrasound was performed. Pulsed volume recording (PVR) and photo plethysmography was performed. The exam was performed with the patient in the supine position. Overall the study quality was adequate. Study was technically difficult due to: body habitus. [facility] 36on 02-08-2025 36 Normal [facility] 36 [facility] Radiology called stating that CT chest wo IV contrast order will before its completion. Requested new order to be placed. Please advise. Normal [facility] 36on 02-07-2025 36 Patient's BGL Normal [facility] Anion gap in Serum or Plasma Ordered By: Jared Guzman on 02-07-2025 Anion gap [Moles/Vol] 10 mmol/L 5-15 [facility] BUN/creatinine ratioOrdered By: Jared Guzman on 02-07-2025 Urea nitrogen/Creatinine [Mass ratio] 21.4 mg/mg High 10-20 [facility] Basic Metabolic Profile (BMP )on 02-07-2025 BUN/CRE 21.4 RATIO High 10-20 [facility] Comment on above: Order Comment: 103.1 Performed By: #### L 100.0500, L500.2500 #### [facility] [address] [place], [address] Calcium [Mass/Vol] 9.0 mg/dL Normal 7.6-11.0 [facility] Comment on above: Order Comment: 103.1 Performed By: #### L 100.0500, L500.2500 #### [facility] [address] [place], [address] Chloride [Moles/Vol] 102 mmol/L Normal 98-108 [facility] Comment on above: Order Comment: 103.1 Performed By: #### L 100.0500, L500.2500 #### [facility] [address] [place], [address] CO2 [Moles/Vol] 27.2 mmol/L Normal 21.0-32.0 [facility] Comment on above: Order Comment: 103.1 Performed By: #### L 100.0500, L500.2500 #### [facility] [address] [place], [address] Creatinine [Mass/Vol] 0.56 mg/dL Low 0.70-1.20 [facility] Comment on above: Order Comment: 103.1 Performed By: #### L 100.0500, L500.2500 #### [facility] [address] [place], [address] GAP 10 Normal 5-15 [facility] Comment on above: Order Comment: 103.1 Performed By: #### L 100.0500, L500.2500 #### [facility] [address] [place], [address] GFR/1.73 sq M.predicted among non-blacks MDRD (S/P/Bld) [Vol rate/Area] 106 mL/min/{1.73_m2} Normal >60 [facility] Comment on above: Order Comment: 103.1 Result Comment: mL/m in/1.73m2 CKD-EPI Creatinine Equation (2020) Performed By: #### L 100.0500, L500.2500 #### [facility] [address] [place], [address] Glucose [Mass/Vol] 113 mg/dL High 70-99 [facility] Comment on above: Order Comment: 103.1 Performed By: #### L 100.0500, L500.2500 #### [facility] [address] [place], [address] Potassium [Moles/Vol] 4.2 mmol/L Normal 3.3-5.1 [facility] Comment on above: Order Comment: 103.1 Performed By: #### L 100.0500, L500.2500 #### [facility] [address] [place], [address] Sodium [Moles/Vol] 140 mmol/L Normal 133-145 [facility] Comment on above: Order Comment: 103.1 Performed By: #### L 100.0500, L500.2500 #### [facility] [address] [place], [address] Urea nitrogen [Mass/Vol] 12 mg/dL Normal 4-19 [facility] Comment on above: Order Comment: 103.1 Performed By: #### L 100.0500, L500.2500 #### [facility] [address] [place], [address] CBC-Complete Blood Cnt No Di ffon 02-07-2025 Erythrocyte distribution width (RBC) [Ratio] 14.5 % Normal 11.6-14.6 [facility] Comment on above: Order Comment: 103.1 Performed By: #### L 100.0500, L500.2500 #### [facility] [address] [place], [address] Hematocrit (Bld) [Volume fraction] 34.7 % Low 37-47 [facility] Comment on above: Order Comment: 103.1 Performed By: #### L 100.0500, L500.2500 #### [facility] [address] [place], [address] Hemoglobin (Bld) [Mass/Vol] 11.1 g/dL Low 12.0-15.0 [facility] Comment on above: Order Comment: 103.1 Performed By: #### L 100.0500, L500.2500 #### [facility] [address] [place], [address] MCH (RBC) [Entitic mass] 27.1 pg Normal 27.0-32.0 [facility] Comment on above: Order Comment: 103.1 Performed By: #### L 100.0500, L500.2500 #### [facility] [address] [place], [address] MCHC (RBC) [Mass/Vol] 32.0 g/dL Normal 32-36 [facility] Comment on above: Order Comment: 103.1 Performed By: #### L 100.0500, L500.2500 #### [facility] [address] [place], [address] MCV (RBC) [Entitic vol] 84.6 fL Normal 81-99 [facility] Comment on above: Order Comment: 103.1 Performed By: #### L 100.0500, L500.2500 #### [facility] [address] [place], [address] Platelet mean volume (Bld) [Entitic vol] 10.3 fL Normal 6.2-12.0 [facility] Comment on above: Order Comment: 103.1 Performed By: #### L 100.0500, L500.2500 #### [facility] [address] [place], [address] Platelets (Bld) [#/Vol] 353 10*3/uL Normal 150-450 [facility] Comment on above: Order Comment: 103.1 Performed By: #### L 100.0500, L500.2500 #### [facility] [address] [place], [address] RBC (Bld) [#/Vol] 4.10 10*6/uL Low 4.2-5.4 [facility] Comment on above: Order Comment: 103.1 Performed By: #### L 100.0500, L500.2500 #### [facility] [address] [place], [address] RDW SD 44.6 fl High 35.1-43.9 [facility] Comment on above: Order Comment: 103.1 Performed By: #### L 100.0500, L500.2500 #### [facility] [address] [place], [address] WBC (Bld) [#/Vol] 8.1 10*3/uL Normal 4.4-11.0 [facility] Comment on above: Order Comment: 103.1 Performed By: #### L 100.0500, L500.2500 #### [facility] [address] [place], [address] Carbon dioxide, total [Moles /volume] in Central venous bloodOrdered By: Jared Guzman on 02-07-2025 CO2 [Moles/Vol] 27.2 mmol/L 21.0-32.0 [facility] Chloride assayOrdered By: Marcel Piper on 02-07-2025 Chloride [Moles/Vol] 102 mmol/L 98-108 [facility] Erythrocyte distribution wid th (RBC) [Ratio]Ordered By: Jared Guzman on 02-07-2025 Erythrocyte distribution width (RBC) [Entitic vol] 44.6 fL High 35.1-43.9 [facility] Erythrocyte distribution wid th ratioOrdered By: Jared Guzman on 02-07-2025 Erythrocyte distribution width (RBC) [Ratio] 14.5 % 11.6-14.6 [facility] Erythrocyte distribution wid th standard deviationOrdered By: Jared Guzman on 02-07-2025 Erythrocyte distribution width (RBC) [Ratio] 44.6 fl High 35.1-43.9 [facility] GFR/1.73 sq M.predicted belinda g non-blacks MDRD (S/P/Bld) [Vol rate/Area]Ordered By: Jared Guzman on 02-07-2025 Estimated GFR (MDRD) Non-Af Amer 106 >60 [facility] Comment on above: mL/min/1.73m2 CKD-EP I Creatinine Equation (2020) Glomerular filtration rate ( GFR) estimation/1.73 sq m using serum, plasma, or whole bOrdered By: Jared Guzman on 02-07-2025 GFR/1.73 sq M.predicted among non-blacks MDRD (S/P/Bld) [Vol rate/Area] 106 mL/min/{1.73_m2} >60 [facility] Comment on above: mL/min/1.73m2 CKD-EP I Creatinine Equation (2020) Hematocrit Auto (Bld) [Volum e fraction]Ordered By: Jared Guzman on 02-07-2025 Hematocrit (Bld) [Volume fraction] 34.7 % Low 37-47 [facility] Hemoglobin measurementOrdere d By: Jared Guzman on 02-07-2025 Hemoglobin (Bld) [Mass/Vol] 11.1 g/dL Low 12.0-15.0 [facility] MCV (mean corpuscular volume ) determinationOrdered By: Jared Guzman on 02-07-2025 MCV (RBC) [Entitic vol] 84.6 fL 81-99 [facility] Mean corpuscular hemoglobin (MCH) determinationOrdered By: Jared Guzman on 02-07-2025 MCH (RBC) [Entitic mass] 27.1 pg 27.0-32.0 [facility] Mean corpuscular hemoglobin concentration (MCHC) determinationOrdered By: Jared Guzman on 02-07-2025 MCHC (RBC) [Mass/Vol] 32.0 g/dL 32-36 [facility] Mean platelet volume determi nationOrdered By: Jared Guzman on 02-07-2025 Platelet mean volume (Bld) [Entitic vol] 10.3 fL 6.2-12.0 [facility] Platelet countOrdered By: Marcel Piper on 02-07-2025 Platelets (Bld) [#/Vol] 353 10*3/uL 150-450 [facility] Potassium (Unsp spec) [Mass/ Vol]Ordered By: Jared Guzman on 02-07-2025 Potassium [Moles/Vol] 4.2 mmol/L 3.3-5.1 [facility] Potassium measurement (mass/ volume)Ordered By: Jared Guzman on 02-07-2025 Potassium (Unsp spec) [Mass/Vol] 4.2 mmol/L 3.3-5.1 [facility] RBC Auto (Bld) [#/Vol]Ordere d By: Jared Guzman on 02-07-2025 RBC (Bld) [#/Vol] 4.10 10*6/uL Low 4.2-5.4 [facility] Serum creatinine measurement (mass/volume)Ordered By: Jared Guzman on 02-07-2025 Creatinine [Mass/Vol] 0.56 mg/dL Low 0.70-1.20 [facility] Serum glucose measurement (m ass/volume)Ordered By: Jared Guzman on 02-07-2025 Glucose [Mass/Vol] 113 mg/dL High 70-99 [facility] Serum or plasma calcium mauricio urement (mass/volume)Ordered By: Jared Guzman on 02-07-2025 Calcium [Mass/Vol] 9.0 mg/dL 7.6-11.0 [facility] Serum or plasma urea nitroge n measurement (mass/volume)Ordered By: Jared Guzman on 02-07-2025 Urea nitrogen [Mass/Vol] 12 mg/dL 4-19 [facility] Sodium levelOrdered By: Main Guzman on 02-07-2025 Sodium [Moles/Vol] 140 mmol/L 133-145 [facility] White blood cell (WBC) count Ordered By: Jared Guzman on 02-07-2025 WBC (Bld) [#/Vol] 8.1 10*3/uL 4.4-11.0 [facility] Progress Noteon 03-27-2025 Progress Note [facility] 3601-31-2025 36 Called SNF s/w Suma released message as written, she stated that she understood. [facility] 3601-30-2025 36 [facility] 3601-29-2025 36 Patient's BGL Normal [facility] 3601-19-2025 36 Faxed orders to [facility] at fax #: [phone]. [facility] 3601-17-2025 36 [facility] 3601-15-2025 36 Patients BGL [facility] 3601-11-2025 36 Called SNF s/w Sanjana released message as written, she stated that she understood and had no questions. [facility] 3601-10-2025 36 [facility] 36on 01-08-2025 36 Patient's BGL [facility] 3601-02-2025 36 Labs Noted [facility] 01-01-2025 36 Requested BGLs and a recent CMP was received , please advise. [facility] 01-01-2025 37 Please send Ophthalmology Note once completed this year. Please note if any insulin doses are held on blood log. [facility] Progress Noteon 01-01-2025 Progress Note [facility] 12-29-2024 36 Called SNF s/w Ninfa released message as written, no insulin has been held. [facility] 12-28-2024 36 Called the nursing facility to schedule an appointment and spoke with Nabil, who stated that the pt nurse is not in today and that she will have her call our office when she is in. TY [facility] 36 ----- Message from JEREMY Bloom CNP sent at 12/21/2024 4:00 PM EST ----- Please schedule patient for EGD and colonoscopy-[facility] endoscopy. Please call nursing facility to schedule appointment. Thank you. [facility] 3612-27-2024 36 [facility] Albumin to globulin ratioOrd ered By: Jared Guzman on 12-27-2024 Albumin/Globulin [Mass ratio] 0.8 {ratio} Low 0.9-2.4 [facility] Bilirubin, totalOrdered By: Jared Guzman on 12-27-2024 Bilirubin [Mass/Vol] 0.40 mg/dL 0.20-1.00 [facility] Comment on above: For patients on eltr ombopag therapy, use of Dimension [place] TBIL is not recommended. Blood urea nitrogen (BUN)/cr eatinine ratioOrdered By: Jared Guzman on 12-27-2024 Urea nitrogen/Creatinine [Mass ratio] 14.4 mg/mg 10-20 [facility] CBC-Complete Blood Cnt No Di ffon 12-27-2024 Erythrocyte distribution width (RBC) [Ratio] 14.6 % Normal 11.6-14.6 [facility] Comment on above: Order Comment: 103.1 Performed By: #### L 100.0500, L500.4050 #### [facility] [address] [place], [address] Hematocrit (Bld) [Volume fraction] 34.5 % Low 37-47 [facility] Comment on above: Order Comment: 103.1 Performed By: #### L 100.0500, L500.4050 #### [facility] [address] [place], [address] Hemoglobin (Bld) [Mass/Vol] 10.9 g/dL Low 12.0-15.0 [facility] Comment on above: Order Comment: 103.1 Performed By: #### L 100.0500, L500.4050 #### [facility] [address] [place], [address] MCH (RBC) [Entitic mass] 27.2 pg Normal 27.0-32.0 [facility] Comment on above: Order Comment: 103.1 Performed By: #### L 100.0500, L500.4050 #### [facility] [address] [place], [address] MCHC (RBC) [Mass/Vol] 31.6 g/dL Low 32-36 [facility] Comment on above: Order Comment: 103.1 Performed By: #### L 100.0500, L500.4050 #### [facility] [address] [place], [address] MCV (RBC) [Entitic vol] 86.0 fL Normal 81-99 [facility] Comment on above: Order Comment: 103.1 Performed By: #### L 100.0500, L500.4050 #### [facility] [address] [place], [address] Platelet mean volume (Bld) [Entitic vol] 10.3 fL Normal 6.2-12.0 [facility] Comment on above: Order Comment: 103.1 Performed By: #### L 100.0500, L500.4050 #### [facility] [address] [place], [address] Platelets (Bld) [#/Vol] 350 10*3/uL Normal 150-450 [facility] Comment on above: Order Comment: 103.1 Performed By: #### L 100.0500, L500.4050 #### [facility] [address] [place], [address] RBC (Bld) [#/Vol] 4.01 10*6/uL Low 4.2-5.4 [facility] Comment on above: Order Comment: 103.1 Performed By: #### L 100.0500, L500.4050 #### [facility] [address] [place], [address] RDW SD 45.5 fl High 35.1-43.9 [facility] Comment on above: Order Comment: 103.1 Performed By: #### L 100.0500, L500.4050 #### [facility] [address] [place], [address] WBC (Bld) [#/Vol] 6.9 10*3/uL Normal 4.4-11.0 [facility] Comment on above: Order Comment: 103.1 Performed By: #### L 100.0500, L500.4050 #### [facility] [address] [place], [address] Carbon dioxide measurementOr dered By: Jared Guzman on 12-27-2024 CO2 [Moles/Vol] 29.0 mmol/L 21.0-32.0 [facility] Chloride measurementOrdered By: Jared Guzman on 12-27-2024 Chloride [Moles/Vol] 104 mmol/L 98-107 [facility] Comprehensive Metabolic Prof ilon 12-27-2024 Albumin [Mass/Vol] 2.8 g/dL Low 3.2-5.0 [facility] Comment on above: Order Comment: 103.1 Performed By: #### L 100.0500, L500.4050 #### [facility] [address] [place], [address] Albumin/Globulin [Mass ratio] 0.8 {ratio} Low 0.9-2.4 [facility] Comment on above: Order Comment: 103.1 Performed By: #### L 100.0500, L500.4050 #### [facility] [address] [place], [address] ALK P 152 U/L High 45-117 [facility] Comment on above: Order Comment: 103.1 Performed By: #### L 100.0500, L500.4050 #### [facility] [address] [place], [address] ALT [Catalytic activity/Vol] 32 U/L Normal 13-56 [facility] Comment on above: Order Comment: 103.1 Performed By: #### L 100.0500, L500.4050 #### [facility] [address] [place], [address] AST [Catalytic activity/Vol] 19 U/L Normal 15-37 [facility] Comment on above: Order Comment: 103.1 Performed By: #### L 100.0500, L500.4050 #### [facility] [address] [place], [address] Bilirubin [Mass/Vol] 0.40 mg/dL Normal 0.20-1.00 [facility] Comment on above: Order Comment: 103.1 Result Comment: For patients on eltrombopag therapy, use of [employer]ension [place] TBIL is not recommended. Performed By: #### L 100.0500, L500.4050 #### [facility] [address] [place], [address] BUN/CRE 14.4 RATIO Normal 10-20 [facility] Comment on above: Order Comment: 103.1 Performed By: #### L 100.0500, L500.4050 #### [facility] [address] [place], [address] CA,Total 9.4 mg/dL Normal 8.5-10.1 [facility] Comment on above: Order Comment: 103.1 Performed By: #### L 100.0500, L500.4050 #### [facility] [address] [place], [address] Chloride [Moles/Vol] 104 mmol/L Normal 98-107 [facility] Comment on above: Order Comment: 103.1 Performed By: #### L 100.0500, L500.4050 #### [facility] [address] [place], [address] CO2 [Moles/Vol] 29.0 mmol/L Normal 21.0-32.0 [facility] Comment on above: Order Comment: 103.1 Performed By: #### L 100.0500, L500.4050 #### [facility] [address] [place], [address] Creatinine [Mass/Vol] 0.56 mg/dL Normal 0.55-1.02 [facility] Comment on above: Order Comment: 103.1 Result Comment: The validity of the calculated GFR GFRAA in patients over 70 years has not been determined. Clinical correlation is essential. Performed By: #### L 100.0500, L500.4050 #### [facility] [address] [place], [address] EST GFR - AA 144 mL/min Normal >60 [facility] Comment on above: Order Comment: 103.1 Result Comment: Afri can [place] GFR Calc Performed By: #### L 100.0500, L500.4050 #### [facility] [address] [place], [address] GAP 6 Normal 5-15 [facility] Comment on above: Order Comment: 103.1 Performed By: #### L 100.0500, L500.4050 #### [facility] [address] [place], [address] GFR/1.73 sq M.predicted among non-blacks MDRD (S/P/Bld) [Vol rate/Area] 119 mL/min/{1.73_m2} Normal >60 [facility] Comment on above: Order Comment: 103.1 Result Comment: Non- GFR Calc Performed By: #### L 100.0500, L500.4050 #### [facility] [address] [place], [address] Globulin (S) [Mass/Vol] 3.4 g/dL Normal 2.2-4.2 [facility] Comment on above: Order Comment: 103.1 Performed By: #### L 100.0500, L500.4050 #### [facility] [address] [place], [address] Glucose [Mass/Vol] 149 mg/dL High 74-106 [facility] Comment on above: Order Comment: 103.1 Result Comment: Fast ing Glucose result greater than or equal to 126 mg/dL suggests DIABETES MELLITUS per A.D.A. criteria. Performed By: #### L 100.0500, L500.4050 #### [facility] [address] [place], [address] Potassium [Moles/Vol] 3.9 mmol/L Normal 3.5-5.1 [facility] Comment on above: Order Comment: 103.1 Performed By: #### L 100.0500, L500.4050 #### [facility] [address] [place], [address] Sodium [Moles/Vol] 139 mmol/L Normal 136-145 [facility] Comment on above: Order Comment: 103.1 Performed By: #### L 100.0500, L500.4050 #### [facility] [address] [place], [address] T PROT 6.2 g/dL Low 6.4-8.2 [facility] Comment on above: Order Comment: 103.1 Performed By: #### L 100.0500, L500.4050 #### [facility] [address] [place], [address] Urea nitrogen [Mass/Vol] 8 mg/dL Normal 7-18 [facility] Comment on above: Order Comment: 103.1 Performed By: #### L 100.0500, L500.4050 #### [facility] [address] [place], [address] Erythrocyte distribution wid th ratioOrdered By: Jared Guzman on 12-27-2024 Erythrocyte distribution width (RBC) [Ratio] 14.6 % 11.6-14.6 [facility] Erythrocyte distribution wid th standard deviationOrdered By: Jared Guzman on 12-27-2024 Erythrocyte distribution width (RBC) [Entitic vol] 45.5 fL High 35.1-43.9 [facility] Erythrocyte distribution width (RBC) [Ratio] 45.5 fl High 35.1-43.9 [facility] Estimated glomerular filtrat ion rate (GFR) AmericanOrdered By: Jared Guzman on 12-27-2024 Estimated GFR (MDRD) Amer 144 mL/min >60 [facility] Comment on above: GFR Calc Glomerular filtration rate ( GFR) estimationOrdered By: Jared Guzman on 12-27-2024 Estimated GFR (MDRD) Non-Af Amer 119 mL/min >60 [facility] Comment on above: Non- GFR Calc GFR/1.73 sq M.predicted among non-blacks MDRD (S/P/Bld) [Vol rate/Area] 119 mL/min/{1.73_m2} >60 [facility] Comment on above: Non- GFR Calc Glucose measurementOrdered B y: Jared Guzman on 12-27-2024 Glucose [Mass/Vol] 149 mg/dL High 74-106 [facility] Comment on above: Fasting Glucose resu lt greater than or equal to 126 mg/dL suggests DIABETES MELLITUS per A.D.A. criteria. Hematocrit Auto (Bld) [Volum e fraction]Ordered By: Jared Guzman on 12-27-2024 Hematocrit (Bld) [Volume fraction] 34.5 % Low 37-47 [facility] Hemoglobin measurementOrdere d By: Jared Guzman on 12-27-2024 Hemoglobin (Bld) [Mass/Vol] 10.9 g/dL Low 12.0-15.0 [facility] High density lipoprotein (HD L) measurementOrdered By: Jared Guzman on 12-27-2024 Cholesterol in HDL [Mass/Vol] 43 mg/dL >40 [facility] Comment on above: The drugs N-Acetylcy steine and Metamizole may falsely depress this assay. Reference Range HDL <40 mg/dL Low HDL Cholesterol HDL >or= 60 mg/dL High HDL Cholesterol Laboratory - Chemistry and C hemistry - challengeOrdered By: Jared Guzman on 12-27-2024 AST [Catalytic activity/Vol] 19 U/L 15-37 [facility] Lipid Profileon 12-27-2024 Cholesterol [Mass/Vol] 178 mg/dL Normal [address] [facility] Comment on above: Order Comment: 103.1 Result Comment: <200 mg/dL Desirable 200-240 mg/dL Borderline >240 mg/dL High Risk Performed By: #### L 100.0500, L500.4050 #### [facility] [address] [place], [address] Cholesterol in HDL [Mass/Vol] 43 mg/dL Normal [facility] Comment on above: Order Comment: 103.1 Result Comment: The drugs N-Acetylcysteine and Metamizole may falsely depress this assay. Reference Range HDL <40 mg/dL Low HDL Cholesterol HDL >or= 60 mg/dL High HDL Cholesterol Performed By: #### L 100.0500, L500.4050 #### [facility] [address] [place], [address] Cholesterol in LDL [Mass/Vol] 99 mg/dL Normal 0-130 [facility] Comment on above: Order Comment: 103.1 Performed By: #### L 100.0500, L500.4050 #### [facility] [address] [place], [address] Cholesterol in VLDL [Mass/Vol] 36 mg/dL Normal 5-40 [facility] Comment on above: Order Comment: 103.1 Performed By: #### L 100.0500, L500.4050 #### [facility] [address] [place], [address] Triglyceride [Mass/Vol] 181 mg/dL Normal [facility] Comment on above: Order Comment: 103.1 Result Comment: The drugs N-Acetylcysteine and Metamizole may falsely depress this assay. Serum Triglycerides Reference Interval Normal <150 mg/dL Borderline high 150 - 199 mg/dL High 200 - 499 mg/dL Very High > or = 500 mg/dL Performed By: #### L 100.0500, L500.4050 #### [facility] [address] [place], [address] Low density lipoprotein (LDL ) cholesterol measurementOrdered By: Jared Guzman on 12-27-2024 Cholesterol in LDL [Mass/Vol] 99 mg/dL 0-130 [facility] MCV (mean corpuscular volume ) determinationOrdered By: Jared Guzman on 12-27-2024 MCV (RBC) [Entitic vol] 86.0 fL 81-99 [facility] Mean corpuscular hemoglobin (MCH) determinationOrdered By: Jared Guzman on 12-27-2024 MCH (RBC) [Entitic mass] 27.2 pg 27.0-32.0 [facility] Mean corpuscular hemoglobin concentration (MCHC) determinationOrdered By: Jared Guzman on 12-27-2024 MCHC (RBC) [Mass/Vol] 31.6 g/dL Low 32-36 [facility] Mean platelet volume determi nationOrdered By: Jared Guzman on 12-27-2024 Platelet mean volume (Bld) [Entitic vol] 10.3 fL 6.2-12.0 [facility] Platelet countOrdered By: Marcel Piper on 12-27-2024 Platelets (Bld) [#/Vol] 350 10*3/uL 150-450 [facility] Potassium measurementOrdered By: Jared Guzman on 12-27-2024 Potassium [Moles/Vol] 3.9 mmol/L 3.5-5.1 [facility] RBC Auto (Bld) [#/Vol]Ordere d By: Jared Guzman on 12-27-2024 RBC (Bld) [#/Vol] 4.01 10*6/uL Low 4.2-5.4 [facility] Serum anion gap measurementO rdered By: Jared Guzman on 12-27-2024 Anion gap [Moles/Vol] 6 mmol/L 5-15 [facility] Serum globulin measurementOr dered By: Jared Guzman on 12-27-2024 Globulin (S) [Mass/Vol] 3.4 g/dL 2.2-4.2 [facility] Serum or plasma alanine jones otransferase (ALT) measurementOrdered By: Jared Guzman on 12-27-2024 ALT [Catalytic activity/Vol] 32 U/L 13-56 [facility] Serum or plasma albumin mauricio urement (mass/volume)Ordered By: Jared Guzman on 12-27-2024 Albumin [Mass/Vol] 2.8 g/dL Low 3.2-5.0 [facility] Serum or plasma alkaline abbey sphatase measurementOrdered By: Jared Guzman on 12-27-2024 ALP [Catalytic activity/Vol] 152 U/L High 45-117 [facility] Serum or plasma calcium mauricio urement (mass/volume)Ordered By: Jared Guzman on 12-27-2024 Calcium [Mass/Vol] 9.4 mg/dL 8.5-10.1 [facility] Serum or plasma cholesterol measurement (mass/volume)Ordered By: Jared Guzman on 12-27-2024 Cholesterol [Mass/Vol] 178 mg/dL <[address] [facility] Comment on above: <200 mg/dL Desirable 200-240 mg/dL Borderline >240 mg/dL High Risk Serum or plasma creatinine m easurement (mass/volume)Ordered By: Jared Guzman on 12-27-2024 Creatinine [Mass/Vol] 0.56 mg/dL 0.55-1.02 [facility] Comment on above: The validity of the calculated GFR & GFRAA in patients over 70 years has not been determined. Clinical correlation is essential. Serum or plasma urea nitroge n measurement (mass/volume)Ordered By: Jared Guzman on 12-27-2024 Urea nitrogen [Mass/Vol] 8 mg/dL 7-18 [facility] Sodium levelOrdered By: Main Guzman on 12-27-2024 Sodium [Moles/Vol] 139 mmol/L 136-145 [facility] Total proteinOrdered By: Mike Guzman on 12-27-2024 Protein [Mass/Vol] 6.2 g/dL Low 6.4-8.2 [facility] Triglycerides measurementOrd ered By: Jared Guzman on 12-27-2024 Triglyceride [Mass/Vol] 181 mg/dL <199 [facility] Comment on above: The drugs N-Acetylcy steine and Metamizole may falsely depress this assay.Serum Triglycerides Reference Interval Normal <150 mg/dL Borderline high 150 - 199 mg/dL High 200 - 499 mg/dL Very High > or = 500 mg/dL Very low density lipoprotein (VLDL) cholesterol measurementOrdered By: Jared Guzman on 12-27-2024 Very low density lipoprotein (VLDL) cholesterol measurement 36 mg/dL - [facility] VLDL Cholesterol 36 mg/dL -40 [facility] White blood cell (WBC) count Ordered By: Jared Guzman on 12-27-2024 WBC (Bld) [#/Vol] 6.9 10*3/uL 4.4-11.0 [facility] 36on 12-22-2024 36 Please advise. [facility] 36 [facility] 36 [facility] 36 Faxed orders from ed dean to [facility] 36on 12-21-2024 36 [facility] 37on 12-21-2024 37 [facility] Progress Noteon 12-21-2024 Progress Note [facility] Progress Note Patient was verified by name and . [facility] 36on 12-20-2024 36 Patients BGL [facility] 36on 12-13-2024 36 Called SNF s/w Nabil released message as written, she stated that she understood and had no questions. [facility] 36on 12-12-2024 36 Normal [facility] 36on 12-11-2024 36 Patient's BGL [facility] Progress Noteon 12-07-2024 Progress Note [facility] 36on 12-06-2024 36 [facility]VM with [facility](primary number in account) for ticket scheduler to call back to schedule follow up appointment with [facility]. [facility] 36on 12-05-2024 36 Faxed recommendation s to [facility] at fax #: [phone]. [facility] 36 Normal [facility] 36 Patient's BGL [facility] Albumin to globulin ratioOrd ered By: Jared Guzman on 12-05-2024 Albumin/Globulin [Mass ratio] 0.9 {ratio} 0.9-2.4 [facility] Bilirubin, totalOrdered By: Jared Guzman on 12-05-2024 Bilirubin [Mass/Vol] 0.50 mg/dL 0.20-1.00 [facility] Comment on above: For patients on eltr ombopag therapy, use of Dimension [place] TBIL is not recommended. Blood urea nitrogen (BUN)/cr eatinine ratioOrdered By: Jared Guzman on 12-05-2024 Urea nitrogen/Creatinine [Mass ratio] 20.1 mg/mg High 10-20 [facility] CBC-Complete Blood Cnt No Di ffon 12-05-2024 Erythrocyte distribution width (RBC) [Ratio] 14.7 % High 11.6-14.6 [facility] Comment on above: Order Comment: 103.1 Performed By: #### L 100.0500, L500.4050 #### [facility] [address] [place], [address] Hematocrit (Bld) [Volume fraction] 35.9 % Low 37-47 [facility] Comment on above: Order Comment: 103.1 Performed By: #### L 100.0500, L500.4050 #### [facility] [address] [place], [address] Hemoglobin (Bld) [Mass/Vol] 11.1 g/dL Low 12.0-15.0 [facility] Comment on above: Order Comment: 103.1 Performed By: #### L 100.0500, L500.4050 #### [facility] [address] [place], [address] MCH (RBC) [Entitic mass] 26.5 pg Low 27.0-32.0 [facility] Comment on above: Order Comment: 103.1 Performed By: #### L 100.0500, L500.4050 #### [facility] [address] [place], [address] MCHC (RBC) [Mass/Vol] 30.9 g/dL Low 32-36 [facility] Comment on above: Order Comment: 103.1 Performed By: #### L 100.0500, L500.4050 #### [facility] [address] [place], [address] MCV (RBC) [Entitic vol] 85.7 fL Normal 81-99 [facility] Comment on above: Order Comment: 103.1 Performed By: #### L 100.0500, L500.4050 #### [facility] [address] [place], [address] Platelet mean volume (Bld) [Entitic vol] 10.2 fL Normal 6.2-12.0 [facility] Comment on above: Order Comment: 103.1 Performed By: #### L 100.0500, L500.4050 #### [facility] [address] [place], [address] Platelets (Bld) [#/Vol] 355 10*3/uL Normal 150-450 [facility] Comment on above: Order Comment: 103.1 Performed By: #### L 100.0500, L500.4050 #### [facility] [address] [place], [address] RBC (Bld) [#/Vol] 4.19 10*6/uL Low 4.2-5.4 [facility] Comment on above: Order Comment: 103.1 Performed By: #### L 100.0500, L500.4050 #### [facility] [address] [place], [address] RDW SD 46.5 fl High 35.1-43.9 [facility] Comment on above: Order Comment: 103.1 Performed By: #### L 100.0500, L500.4050 #### [facility] [address] [place], [address] WBC (Bld) [#/Vol] 8.2 10*3/uL Normal 4.4-11.0 [facility] Comment on above: Order Comment: 103.1 Performed By: #### L 100.0500, L500.4050 #### [facility] [address] [place], [address] Carbon dioxide measurementOr dered By: Jared Guzman on 12-05-2024 CO2 [Moles/Vol] 31.0 mmol/L 21.0-32.0 [facility] Chloride measurementOrdered By: Jared Guzman on 12-05-2024 Chloride [Moles/Vol] 99 mmol/L 98-107 [facility] Comprehensive Metabolic Prof ilon 12-05-2024 Albumin [Mass/Vol] 3.0 g/dL Low 3.2-5.0 [facility] Comment on above: Order Comment: 103.1 Performed By: #### L 100.0500, L500.4050 #### [facility] [address] [place], [address] Albumin/Globulin [Mass ratio] 0.9 {ratio} Normal 0.9-2.4 [facility] Comment on above: Order Comment: 103.1 Performed By: #### L 100.0500, L500.4050 #### [facility] [address] [place], [address] ALK P 137 U/L High 45-117 [facility] Comment on above: Order Comment: 103.1 Performed By: #### L 100.0500, L500.4050 #### [facility] [address] [place], [address] ALT [Catalytic activity/Vol] 23 U/L Normal 13-56 [facility] Comment on above: Order Comment: 103.1 Performed By: #### L 100.0500, L500.4050 #### [facility] [address] [place], [address] AST [Catalytic activity/Vol] 12 U/L Low 15-37 [facility] Comment on above: Order Comment: 103.1 Performed By: #### L 100.0500, L500.4050 #### [facility] [address] [place], [address] Bilirubin [Mass/Vol] 0.50 mg/dL Normal 0.20-1.00 [facility] Comment on above: Order Comment: 103.1 Result Comment: For patients on eltrombopag therapy, use of Dimension [place] TBIL is not recommended. Performed By: #### L 100.0500, L500.4050 #### [facility] [address] [place], [address] BUN/CRE 20.1 RATIO High 10-20 [facility] Comment on above: Order Comment: 103.1 Performed By: #### L 100.0500, L500.4050 #### [facility] [address] [place], [address] CA,Total 9.0 mg/dL Normal 8.5-10.1 [facility] Comment on above: Order Comment: 103.1 Performed By: #### L 100.0500, L500.4050 #### [facility] [address] [place], [address] Chloride [Moles/Vol] 99 mmol/L Normal 98-107 [facility] Comment on above: Order Comment: 103.1 Performed By: #### L 100.0500, L500.4050 #### [facility] [address] [place], [address] CO2 [Moles/Vol] 31.0 mmol/L Normal 21.0-32.0 [facility] Comment on above: Order Comment: 103.1 Performed By: #### L 100.0500, L500.4050 #### [facility] [address] [place], [address] Creatinine [Mass/Vol] 0.70 mg/dL Normal 0.55-1.02 [facility] Comment on above: Order Comment: 103.1 Result Comment: The validity of the calculated GFR GFRAA in patients over 70 years has not been determined. Clinical correlation is essential. Performed By: #### L 100.0500, L500.4050 #### [facility] [address] [place], [address] EST GFR - AA 111 mL/min Normal >60 [facility] Comment on above: Order Comment: 103.1 Result Comment: Afri can [place] GFR Calc Performed By: #### L 100.0500, L500.4050 #### [facility] [address] [place], [address] GAP 6 Normal 5-15 [facility] Comment on above: Order Comment: 103.1 Performed By: #### L 100.0500, L500.4050 #### [facility] [address] [place], [address] GFR/1.73 sq M.predicted among non-blacks MDRD (S/P/Bld) [Vol rate/Area] 92 mL/min/{1.73_m2} Normal >60 [facility] Comment on above: Order Comment: 103.1 Result Comment: Non- GFR Calc Performed By: #### L 100.0500, L500.4050 #### [facility] [address] [place], [address] Globulin (S) [Mass/Vol] 3.3 g/dL Normal 2.2-4.2 [facility] Comment on above: Order Comment: 103.1 Performed By: #### L 100.0500, L500.4050 #### [facility] [address] [place], [address] Glucose [Mass/Vol] 86 mg/dL Normal 74-106 [facility] Comment on above: Order Comment: 103.1 Performed By: #### L 100.0500, L500.4050 #### [facility] [address] [place], [address] Potassium [Moles/Vol] 3.0 mmol/L Low 3.5-5.1 [facility] Comment on above: Order Comment: 103.1 Performed By: #### L 100.0500, L500.4050 #### [facility] [address] [place], [address] Sodium [Moles/Vol] 136 mmol/L Normal 136-145 [facility] Comment on above: Order Comment: 103.1 Performed By: #### L 100.0500, L500.4050 #### [facility] [address] [place], [address] T PROT 6.3 g/dL Low 6.4-8.2 [facility] Comment on above: Order Comment: 103.1 Performed By: #### L 100.0500, L500.4050 #### [facility] [address] [place], [address] Urea nitrogen [Mass/Vol] 14 mg/dL Normal 7-18 [facility] Comment on above: Order Comment: 103.1 Performed By: #### L 100.0500, L500.4050 #### [facility] [address] [place], [address] Erythrocyte distribution wid th ratioOrdered By: Jared Guzman on 12-05-2024 Erythrocyte distribution width (RBC) [Ratio] 14.7 % High 11.6-14.6 [facility] Erythrocyte distribution wid th standard deviationOrdered By: Jared Guzman on 12-05-2024 Erythrocyte distribution width (RBC) [Entitic vol] 46.5 fL High 35.1-43.9 [facility] Estimated glomerular filtrat ion rate (GFR) AmericanOrdered By: Jared Guzman on 12-05-2024 Estimated GFR (MDRD) Amer 111 mL/min >60 [facility] Comment on above: GFR Calc Glomerular filtration rate ( GFR) estimationOrdered By: Jared Guzman on 12-05-2024 Estimated GFR (MDRD) Non-Af Amer 92 mL/min >60 [facility] Comment on above: Non- GFR Calc Glucose measurementOrdered B y: Jared Guzman on 12-05-2024 Glucose [Mass/Vol] 86 mg/dL 74-106 [facility] Hematocrit Auto (Bld) [Volum e fraction]Ordered By: Jared Guzman on 12-05-2024 Hematocrit (Bld) [Volume fraction] 35.9 % Low 37-47 [facility] Hemoglobin measurementOrdere d By: Jared Guzman on 12-05-2024 Hemoglobin (Bld) [Mass/Vol] 11.1 g/dL Low 12.0-15.0 [facility] - Chemistry and C hemistry - challengeOrdered By: Jared Guzman on 12-05-2024 AST [Catalytic activity/Vol] 12 U/L Low 15-37 [facility] MCV (mean corpuscular volume ) determinationOrdered By: Jared Guzman on 12-05-2024 MCV (RBC) [Entitic vol] 85.7 fL 81-99 [facility] Mean corpuscular hemoglobin (MCH) determinationOrdered By: Jared Guzman on 12-05-2024 MCH (RBC) [Entitic mass] 26.5 pg Low 27.0-32.0 [facility] Mean corpuscular hemoglobin concentration (MCHC) determinationOrdered By: Jared Guzman on 12-05-2024 MCHC (RBC) [Mass/Vol] 30.9 g/dL Low 32-36 [facility] Mean platelet volume determi nationOrdered By: Jared Guzman on 12-05-2024 Platelet mean volume (Bld) [Entitic vol] 10.2 fL 6.2-12.0 [facility] Platelet countOrdered By: Marcel Piper on 12-05-2024 Platelets (Bld) [#/Vol] 355 10*3/uL 150-450 [facility] Potassium measurementOrdered By: Jared Guzman on 12-05-2024 Potassium [Moles/Vol] 3.0 mmol/L Low 3.5-5.1 [facility] RBC Auto (Bld) [#/Vol]Ordere d By: Jared Guzman on 12-05-2024 RBC (Bld) [#/Vol] 4.19 10*6/uL Low 4.2-5.4 [facility] Serum anion gap measurementO rdered By: Jared Guzman on 12-05-2024 Anion gap [Moles/Vol] 6 mmol/L 5-15 [facility] Serum globulin measurementOr dered By: Jared Guzman on 12-05-2024 Globulin (S) [Mass/Vol] 3.3 g/dL 2.2-4.2 [facility] Serum or plasma alanine jones otransferase (ALT) measurementOrdered By: Jared Guzman on 12-05-2024 ALT [Catalytic activity/Vol] 23 U/L 13-56 [facility] Serum or plasma albumin mauricio urement (mass/volume)Ordered By: Jared Guzman on 12-05-2024 Albumin [Mass/Vol] 3.0 g/dL Low 3.2-5.0 [facility] Serum or plasma alkaline abbey sphatase measurementOrdered By: Jared Guzman on 12-05-2024 ALP [Catalytic activity/Vol] 137 U/L High 45-117 [facility] Serum or plasma calcium mauricio urement (mass/volume)Ordered By: Jared Guzman on 12-05-2024 Calcium [Mass/Vol] 9.0 mg/dL 8.5-10.1 [facility] Serum or plasma creatinine m easurement (mass/volume)Ordered By: Jared Guzman on 12-05-2024 Creatinine [Mass/Vol] 0.70 mg/dL 0.55-1.02 [facility] Comment on above: The validity of the calculated GFR & GFRAA in patients over 70 years has not been determined. Clinical correlation is essential. Serum or plasma urea nitroge n measurement (mass/volume)Ordered By: Jared Guzman on 12-05-2024 Urea nitrogen [Mass/Vol] 14 mg/dL 7-18 [facility] Sodium levelOrdered By: Main Guzman on 12-05-2024 Sodium [Moles/Vol] 136 mmol/L 136-145 [facility] Total proteinOrdered By: Mike Guzman on 12-05-2024 Protein [Mass/Vol] 6.3 g/dL Low 6.4-8.2 [facility] White blood cell (WBC) count Ordered By: Jared Guzman on 12-05-2024 WBC (Bld) [#/Vol] 8.2 10*3/uL 4.4-11.0 [facility] 36on 12-01-2024 36 Faxed new insulin or cary to [facility] at fax #: [phone]. Normal [facility] BASIC METABOLIC PANELon 11-09 Anion gap [Moles/Vol] 10 mmol/L Normal 3-13 [facility] Comment on above: Performed By: #### L AB15 ####Manager Sas: KEMAR ABEBE ([id number])[facility] [place] (SBHLAB)[address] Calcium [Mass/Vol] 9.0 mg/dL Normal 8.4-10.2 [facility] Comment on above: Performed By: #### L AB15 ####Manager Sas: KEMAR ABEBE ([phone])[facility] [place] ([facility])[address] Chloride [Moles/Vol] 102 mmol/L Normal 98-107 [facility] Comment on above: Performed By: #### L AB15 ####Manager Sas: KEMAR ABEBE ([phone])[facility] [place] ([facility])[address] CO2 [Moles/Vol] 25 mmol/L Normal 22-29 [facility] Comment on above: Performed By: #### L AB15 ####Manager Sas: KEMAR ABEBE ([phone])[facility] [place] ([facility])[address] Creatinine [Mass/Vol] 0.67 mg/dL Normal [facility] Comment on above: Performed By: #### L AB15 ####Manager Sas: KEMAR ABEBE ([phone])[facility] [facility] ([facility])[address] GLOMERULAR FILTRATION RATE ML/MIN/1.73 SQ M.PREDICTED >90.0 Normal >60.0 [facility] Comment on above: Result Comment: Calc ulation based on the Chronic Kidney Disease Epidemiology Collaboration (CKD-EPI) equation refit without adjustment for race Performed By: #### L AB15 ####Manager Sas: KEMAR ABEBE ([id number])[facility] [place] (SBHLAB)[address] Glucose [Mass/Vol] 215 mg/dL High 74-100 [facility] Comment on above: Performed By: #### L AB15 ####Manager Sas: KEMAR ABEBE ([phone])[facility] [place] ([facility])[address] Potassium [Moles/Vol] 3.4 mmol/L Low 3.5-5.1 [facility] Comment on above: Result Comment: [facility] potassium values may be up to 0.5 mmol/L lower than serum values. Performed By: #### L AB15 ####Manager Sas: KEMAR ABEBE ([phone])[facility] [place] ([facility])[address] Sodium [Moles/Vol] 137 mmol/L Normal 136-145 [facility] Comment on above: Performed By: #### L AB15 ####Manager Sas: KEMAR ABEBE ([id number])[facility] [place] ([facility])[address] Urea nitrogen [Mass/Vol] 10 mg/dL Normal 9-23 [facility] Comment on above: Performed By: #### L AB15 ####Manager Sas: KEMAR ABEBE ([id number])[facility] [place] (SBHLAB)[address] [place] [address] [place] Consulton 12-01-2024 Consult Normal [facility] ED Nursing Noteon 12-01-2024 ED Nursing Note Normal [facility] Progress Noteon 12-01-2024 Progress Note Normal [facility] Progress Note Normal [facility] Albumin to globulin ratioOrd ered By: Jared Guzman on 11-30-2024 Albumin/Globulin [Mass ratio] 0.4 {ratio} Low 0.9-2.4 [facility] Bilirubin, totalOrdered By: Jared Guzman on 11-30-2024 Bilirubin [Mass/Vol] 0.40 mg/dL 0.20-1.00 [facility] Comment on above: For patients on eltr ombopag therapy, use of Dimension [place] TBIL is not recommended. Blood urea nitrogen (BUN)/cr eatinine ratioOrdered By: Jared Guzman on 11-30-2024 Urea nitrogen/Creatinine [Mass ratio] 10.5 mg/mg 10-20 [facility] CBC WITH AUTO DIFFERENTIALon 11-30-2024 Basophils (Bld) [#/Vol] 0.0 10*3/uL Normal 0.0-0.2 [facility] Comment on above: Performed By: #### L [id number] ####Manager Sas: KEMAR ABEBE ([phone])[facility] CAMPUSWarren [facility]ER CENTERJermaine ([facility])[address] [place] [address] Basophils/100 WBC (Bld) 0.2 % Normal 0.0-2.[address] [facility] Comment on above: Performed By: #### L [id number] ####Manager Sas: KEMAR ABEBE ([phone])[facility] ([facility]AB)[address] [place] [address] Eosinophils (Bld) [#/Vol] 0.1 10*3/uL Normal 0.0-0.5 [facility] Comment on above: Performed By: #### L [id number] ####Manager Sas: KEMAR ABEBE ([phone])[facility] CAMPUSA [facility]ENTERN ([facility])[address] [place] [address] Eosinophils/100 WBC (Bld) 1.2 % Normal 0.0-6.0 [facility] Comment on above: Performed By: #### L [id number] ####Manager Sas: KEMAR ABEBE ([phone])[facility] CAMPUSA [facility]ERN (SB[facility])[address] [place] [address] Erythrocyte distribution width (RBC) [Ratio] 14.7 % Normal 11.5-15.0 [facility] Comment on above: Performed By: #### L [id number] ####Manager Sas: KEMAR ABEBE ([phone])[facility] CAMPUSA [facility]ERN ([facility]AB)[address] Hematocrit (Bld) [Volume fraction] 37.5 % Normal Male: 40.0-52.0 ; Female: 35.0-47.0 [facility] Comment on above: Performed By: #### L [id number] ####Manager Sas: KEMAR ABEBE ([phone])[facility] ([facility])[address] [place] [address] Hemoglobin (Bld) [Mass/Vol] 12.0 g/dL Normal 11.7-18.0 [facility] Comment on above: Performed By: #### L [id number] ####Manager Sas: KEMAR ABEBE ([phone])[facility] ([facility])[address] IMMATURE GRANS % 0.6 % Normal 0.0-2.0 [facility] Comment on above: Performed By: #### L [id number] ####Manager Sas: KEMAR ABEBE ([phone])[facility] ([facility]AB)[address] [place] [address] IMMATURE GRANS ABSOLUTE 0.1 10*3/uL High <0.1 [facility] Comment on above: Performed By: #### L [id number] ####Manager Sas: KEMAR ABEBE ([phone])[facility] ([facility]AB)[address] [place] [address] Lymphocytes (Bld) [#/Vol] 1.3 10*3/uL Normal 1.0-4.3 [facility] Comment on above: Performed By: #### L [id number] ####Manager Sas: KEMAR ABEBE ([phone])[facility] ([facility])[address] Lymphocytes/100 WBC (Bld) 15.0 % Normal 15.0-45.0 [facility] Comment on above: Performed By: #### L [id number] ####Manager Sas: KEMAR ABEBE ([phone])[facility] CAMPUSA [place] (SBHLAB)[address] MCH (RBC) [Entitic mass] 26.8 pg Normal 26.0-34.0 [facility] Comment on above: Performed By: #### L [id number] ####Manager Sas: KEMAR ABEBE ([phone])[facility] CAMPUSA [facility] (SBHLAB)[address] MCHC 32.0 % Normal 30.5-36.0 [facility] Comment on above: Performed By: #### L [id number] ####Manager Sas: KEMAR ABEBE ([phone])[facility] CAMPUSA [facility]ERN (SBHLAB)[address] MCV (RBC) [Entitic vol] 83.9 fL Normal 77.0-99.0 [facility] Comment on above: Performed By: #### L [id number] ####Manager Sas: KEMAR ABEBE ([phone])[facility] CAMPUSWarren [facility] (SBHLAB)[address] [place] [address] Monocytes (Bld) [#/Vol] 0.3 10*3/uL Normal 0.0-0.9 [facility] Comment on above: Performed By: #### L [id number] ####Manager Sas: KEMAR ABEBE ([phone])[facility] CAMPUSA [facility] (SBHLAB)[address] Monocytes/100 WBC (Bld) 3.7 % Low 5.0-13.0 [facility] Comment on above: Performed By: #### L [id number] ####Manager Sas: KEMAR ABEBE ([phone])[facility] CAMPUSA [facility] (SBHLAB)[address] NEUTROPHILS ABSOLUTE 7.0 10*3/uL Normal 1.8-7.5 [facility] Comment on above: Performed By: #### L [id number] ####Manager Sas: KEMAR ABEBE ([phone])[facility] CAMPUSA [place] (SBHLAB)[address] Neutrophils/100 WBC (Bld) 79.3 % Normal 38.0-82.0 [facility] Comment on above: Performed By: #### L [id number] ####Manager Sas: KEMAR ABEBE ([phone])[facility] CAMPUSA [place] (SBHLAB)[address] NRBC 0.0 /100 WBCs Normal 0.0-2.0 [facility] Comment on above: Performed By: #### L [id number] ####Manager Sas: KEMAR ABEBE ([phone])[facility] CAMPUSA [place] (SBHLAB)[address] Platelet mean volume (Bld) [Entitic vol] 9.5 fL Normal 9.0-12.7 [facility] Comment on above: Performed By: #### L [id number] ####Manager Sas: KEMAR ABEBE ([phone])[facility] CAMPUSA [place] (SBHLAB)[address] Platelets (Bld) [#/Vol] 384 10*3/uL Normal 140-440 [facility] Comment on above: Performed By: #### L [id number] ####Manager Sas: KEMAR LUDWIGASAD ([phone])[facility] CAMPUSA [place] (SBHLAB)[address] [place] [address] [place] RBC (Bld) [#/Vol] 4.47 10*6/uL Normal Male: 4.40-5.90; Female: 3.80-5.20 [facility] Comment on above: Performed By: #### L [id number] ####Manager Sas: KEMAR ABEBE ([phone])[facility] CAMPUSA [place] (SBHLAB)[address] WBC (Bld) [#/Vol] 8.8 10*3/uL Normal 3.6-10.7 [facility] Comment on above: Performed By: #### L [id number] ####Manager Sas: KEMAR ABEBE ([phone])[facility] (SBHLAB)[address] [place] [address] CBC-Complete Blood Cnt No Di ffon 11-30-2024 Erythrocyte distribution width (RBC) [Ratio] 15.1 % High 11.6-14.6 [facility] Comment on above: Order Comment: 103.1 Performed By: #### L 100.0500, L500.4050 #### [facility] [address] [place], [address] Hematocrit (Bld) [Volume fraction] 34.7 % Low 37-47 [facility] Comment on above: Order Comment: 103.1 Performed By: #### L 100.0500, L500.4050 #### [facility] [address] [place], [address] Hemoglobin (Bld) [Mass/Vol] 10.8 g/dL Low 12.0-15.0 [facility] Comment on above: Order Comment: 103.1 Performed By: #### L 100.0500, L500.4050 #### [facility] [address] [place], [address] MCH (RBC) [Entitic mass] 26.6 pg Low 27.0-32.0 [facility] Comment on above: Order Comment: 103.1 Performed By: #### L 100.0500, L500.4050 #### [facility] [address] [place], [address] MCHC (RBC) [Mass/Vol] 31.1 g/dL Low 32-36 [facility] Comment on above: Order Comment: 103.1 Performed By: #### L 100.0500, L500.4050 #### [facility] [address] [place], [address] MCV (RBC) [Entitic vol] 85.5 fL Normal 81-99 [facility] Comment on above: Order Comment: 103.1 Performed By: #### L 100.0500, L500.4050 #### [facility] [address] [place], [address] Platelet mean volume (Bld) [Entitic vol] 10.0 fL Normal 6.2-12.0 [facility] Comment on above: Order Comment: 103.1 Performed By: #### L 100.0500, L500.4050 #### [facility] [address] [place], [address] Platelets (Bld) [#/Vol] 375 10*3/uL Normal 150-450 [facility] Comment on above: Order Comment: 103.1 Performed By: #### L 100.0500, L500.4050 #### [facility] [address] [place], [address] RBC (Bld) [#/Vol] 4.06 10*6/uL Low 4.2-5.4 [facility] Comment on above: Order Comment: 103.1 Performed By: #### L 100.0500, L500.4050 #### [facility] [address] [place], [address] RDW SD 46.6 fl High 35.1-43.9 [facility] Comment on above: Order Comment: 103.1 Performed By: #### L 100.0500, L500.4050 #### [facility] [address] [place], [address] WBC (Bld) [#/Vol] 8.4 10*3/uL Normal 4.4-11.0 [facility] Comment on above: Order Comment: 103.1 Performed By: #### L 100.0500, L500.4050 #### [facility] [address] [place], [address] COMPLETE URINALYSISon 2024 BACTERIA (#/HPF) IN URINE Negative Normal Negative [facility] Comment on above: Performed By: #### L [id number] ####Manager Sas: KEMAR ABEBE ([phone])[facility] CAMPUSWarren [place] (SBHLAB)[address] BILIRUBIN, TOTAL PRESENCE IN URINE Negative Normal Negative [facility] Comment on above: Performed By: #### L [id number] ####Manager Sas: KEMAR ABEBE ([phone])[facility] CAMPUSA [place] (SBHLAB)[address] Clarity (U) Clear Normal Clear [facility] Comment on above: Performed By: #### L [id number] ####Manager Sas: KEMAR ABEBE ([phone])[facility] CAMPUSA [facility] (SBHLAB)[address] Color (U) Light Yellow Normal Lt. Yellow [facility] Comment on above: Performed By: #### L [id number] ####Manager Sas: KEMAR ABEBE ([phone])[facility] CAMPUSA [place] (SBHLAB)[address] Glucose (U) [Mass/Vol] 50 mg/dL Normal Janey l (<70) [facility] Comment on above: Performed By: #### L [id number] ####Manager Sas: KEMAR ABEBE ([phone])[facility] CAMPUSA [facility] (SBHLAB)[address] HEMOGLOBIN PRESENCE IN URINE 1.0 mg/dL Abnormal Negative [facility] Comment on above: Performed By: #### L [id number] ####Manager Sas: KEMAR ABEBE ([phone])[facility] CAMPUSA [place] (SBHLAB)[address] HYALINE CASTS (#/LPF) IN URINE SEDIMENT BY MICROSCOPY 0-2 Abnormal Negative [facility] Comment on above: Performed By: #### L [id number] ####Manager Sas: KEMAR ABEBE ([phone])[facility] CAMPUSA [facility] (HLAB)[address] Ketones Ql (U) Trace Abnormal Negative [facility] Comment on above: Performed By: #### L [id number] ####Manager Sas: KEMAR ABEBE ([phone])[facility] CAMPUSA [facility]ERN ([facility])[address] LEUKOCYTE ESTERASE PRESENCE IN URINE BY TEST STRIP Negative Normal Negative [facility] Comment on above: Performed By: #### L [id number] ####Manager Sas: KEMAR ABEBE ([phone])[facility] ([facility])[address] [place] [address] MUCUS (#/LPF) IN URINE SEDIMENT Few Normal Negative [facility] Comment on above: Performed By: #### L [id number] ####Manager Sas: KEMAR ABEBE ([phone])[facility] ([facility])[address] NITRITE PRESENCE IN URINE Negative Normal Negative [facility] Comment on above: Performed By: #### L [id number] ####Manager Sas: KEMAR ABEBE ([phone])[facility] ([facility]AB)[address] [place] [address] pH (U) 6.0 [pH] Normal 5.0-8.0 [facility] Comment on above: Performed By: #### L [id number] ####Manager Sas: KEMAR ABEBE ([phone])[facility] CAMPUSA [facility] ([facility])[address] [place] [address] Protein (U) [Mass/Vol] 100 mg/dL Abnormal Negative [facility] Comment on above: Performed By: #### L [id number] ####Manager Sas: KEMAR ABEBE ([phone])[facility] CAMPUSA [place] (SBHLAB)[address] [place] [address] [place] RBC (#/HPF) IN URINE SEDIMENT >100 Abnormal 0-2 [facility] Comment on above: Performed By: #### L [id number] ####Manager Sas: KEMAR ABEBE ([phone])[facility] CAMPUSA [facility]ENTERN (SBHLAB)[address] Specific gravity (U) [Rel density] 1.012 Normal 1.005-1.030 [facility] Comment on above: Performed By: #### L [id number] ####Manager Sas: KEMAR ABEBE ([phone])[facility] (SBHLAB)[address] SQUAMOUS EPITHELIAL CELLS (#/HPF) IN URINE SEDIMENT 3-5 Normal 3-5 [facility] Comment on above: Performed By: #### L [id number] ####Manager Sas: KEMAR ABEBE ([phone])[facility] (SBHLAB)[address] UROBILINOGEN (MG/DL) IN URINE Normal Normal Normal (0-1) [facility] Comment on above: Performed By: #### L [id number] ####Manager Sas: KEMAR ABEBE ([phone])[facility] CAMPUSWarren [facility] (SBHLAB)[address] WBC (LEUKOCYTE) (#/HPF) IN URINE SEDIMENT 0-2 Normal 0-5 [facility] Comment on above: Performed By: #### L [id number] ####Manager Sas: KEMAR ABEBE ([phone])[facility] (SBHLAB)[address] COMPREHENSIVE METABOLIC PANE Gigi 11-30-2024 Albumin [Mass/Vol] 3.4 g/dL Low 3.5-5.0 [facility] Comment on above: Performed By: #### L [id number], LAB17, [id number], LAB99 ####Manager Sas: KEMAR BAEBE ([phone])[facility] CAMPUSA [place] (SBHLAB)[address] ALP [Catalytic activity/Vol] 145 U/L Normal [facility] Comment on above: Performed By: #### L [id number], LAB17, XIM736, LAB99 ####Manager Sas: KEMAR ABEBE ([phone])[facility] CAMPUSWarren [place] (SBHLAB)[address] ALT [Catalytic activity/Vol] 21 U/L Normal [facility] Comment on above: Performed By: #### L [id number], LAB17, [id number], LAB99 ####Manager Sas: KEMAR ABEBE ([phone])[facility] CAMPUSA [place] (SBHLAB)[address] Anion gap [Moles/Vol] 11 mmol/L Normal 3-13 [facility] Comment on above: Performed By: #### L [id number], LAB17, [id number], LAB99 ####Manager Sas: KEMAR ABEBE ([phone])[facility] CAMPUSWarren [facility] (SBHLAB)[address] AST [Catalytic activity/Vol] 21 U/L Normal <34 [facility] Comment on above: Performed By: #### L [id number], LAB17, EBM208, LAB99 ####Manager Sas: KEMAR ABEBE ([phone])[facility] CAMPUSWarren [facility]ERN (SBHLAB)[address] Bilirubin [Mass/Vol] 0.5 mg/dL Normal <1.2 [facility] Comment on above: Performed By: #### L [id number], LAB17, [id number], LAB99 ####Manager Sas: KEMAR ABEBE ([phone])[facility]ERIUN[facility] CANCER CENTERN (SBHLAB)[address] Calcium [Mass/Vol] 8.9 mg/dL Normal 8.4-10.2 [facility] Comment on above: Performed By: #### L [id number], LAB17, CLQ333, LAB99 ####Manager Sas: KEMAR ABEBE ([phone])[facility] CAMPUSWarren KASPERN (SBHLAB)[address] [place] [address] [place] Chloride [Moles/Vol] 99 mmol/L Normal 98-107 [facility] Comment on above: Performed By: #### L [id number], LAB17, UXS079, LAB99 ####Manager Sas: KEMAR ABEBE ([phone])[facility] CAMPUSA [place] (SBHLAB)[address] CO2 [Moles/Vol] 28 mmol/L Normal 22-29 [facility] Comment on above: Performed By: #### L [id number], LAB17, QLI772, LAB99 ####Manager Sas: KEMAR ABEBE ([phone])[facility] CAMPUSWarren [facility] (SBHLAB)[address] Creatinine [Mass/Vol] 0.73 mg/dL Normal [facility] Comment on above: Performed By: #### L [id number], LAB17, ILB580, LAB99 ####Manager Sas: KEMAR ABEBE ([phone])[facility] CAMPUSWarren [facility]ERN (SBHLAB)[address] GLOMERULAR FILTRATION RATE ML/MIN/1.73 SQ M.PREDICTED >90.0 Normal >60.0 [facility] Comment on above: Result Comment: Calc ulation based on the Chronic Kidney Disease Epidemiology Collaboration (CKD-EPI) equation refit without adjustment for race Performed By: #### L [id number], LAB17, SEI653, LAB99 ####Manager Sas: KEMAR ABEBE ([phone])[facility] CAMPUSA [place] (SBHLAB)[address] [place] [address] [place] Glucose [Mass/Vol] 249 mg/dL High 74-100 [facility] Comment on above: Performed By: #### L [id number], LAB17, [id number], LAB99 ####Manager Sas: KEMAR ABEBE ([phone])[facility] CAMPUSA [place] (SBHLAB)[address] Potassium [Moles/Vol] 3.4 mmol/L Low 3.5-5.1 [facility] Comment on above: Result Comment: [facility] potassium values may be up to 0.5 mmol/L lower than serum values. Performed By: #### L [id number], LAB17, NXM580, LAB99 ####Manager Sas: KEMAR ABEBE ([phone])[facility] (SBHLAB)[address] Protein [Mass/Vol] 6.7 g/dL Normal 6.4-8.3 [facility] Comment on above: Performed By: #### L [id number], LAB17, ECS905, LAB99 ####Manager Sas: KEMAR ABEBE ([phone])[facility] (SBHLAB)[address] [place] [address] Sodium [Moles/Vol] 138 mmol/L Normal 136-145 [facility] Comment on above: Performed By: #### L [id number], LAB17, EXG911, LAB99 ####Manager Sas: KEMAR ABEBE ([phone])[facility] (HLAB)[address] [place] [address] Urea nitrogen [Mass/Vol] 10 mg/dL Normal 9-23 [facility] Comment on above: Performed By: #### L [id number], LAB17, XQC344, LAB99 ####Manager Sas: KEMAR ABEBE ([phone])[facility] (SBHLAB)[address] [place] [address] Carbon dioxide measurementOr dered By: Jared Guzman on 11-30-2024 CO2 [Moles/Vol] 18.0 mmol/L Low 21.0-32.0 [facility] Chloride measurementOrdered By: Jared Guzman on 11-30-2024 Chloride [Moles/Vol] 104 mmol/L 98-107 [facility] Comprehensive Metabolic Prof ilon 11-30-2024 Albumin [Mass/Vol] 2.0 g/dL Low 3.2-5.0 [facility] Comment on above: Order Comment: 103.1 Performed By: #### L 100.0500, L500.4050 #### [facility] [address] [place], [address] Albumin/Globulin [Mass ratio] 0.4 {ratio} Low 0.9-2.4 [facility] Comment on above: Order Comment: 103.1 Performed By: #### L 100.0500, L500.4050 #### [facility] [address] [place], [address] ALK P 137 U/L High 45-117 [facility] Comment on above: Order Comment: 103.1 Performed By: #### L 100.0500, L500.4050 #### [facility] [address] [place], [address] ALT [Catalytic activity/Vol] 26 U/L Normal 13-56 [facility] Comment on above: Order Comment: 103.1 Performed By: #### L 100.0500, L500.4050 #### [facility] [address] [place], [address] AST [Catalytic activity/Vol] 15 U/L Normal 15-37 [facility] Comment on above: Order Comment: 103.1 Performed By: #### L 100.0500, L500.4050 #### [facility] [address] [place], [address] Bilirubin [Mass/Vol] 0.40 mg/dL Normal 0.20-1.00 [facility] Comment on above: Order Comment: 103.1 Result Comment: For patients on eltrombopag therapy, use of [employer]ension [place] TBIL is not recommended. Performed By: #### L 100.0500, L500.4050 #### [facility] [address] [place], [address] BUN/CRE 10.5 RATIO Normal 10-20 [facility] Comment on above: Order Comment: 103.1 Performed By: #### L 100.0500, L500.4050 #### [facility] [address] [place], [address] CA,Total 5.9 mg/dL Invalid Interpretation Code 8.5-10.1 [facility] Comment on above: Order Comment: 103.1 Performed By: #### L 100.0500, L500.4050 #### [facility] [address] [place], [address] Chloride [Moles/Vol] 104 mmol/L Normal 98-107 [facility] Comment on above: Order Comment: 103.1 Performed By: #### L 100.0500, L500.4050 #### [facility] [address] [place], [address] CO2 [Moles/Vol] 18.0 mmol/L Low 21.0-32.0 [facility] Comment on above: Order Comment: 103.1 Performed By: #### L 100.0500, L500.4050 #### [facility] [address] [place], [address] Creatinine [Mass/Vol] 0.57 mg/dL Normal 0.55-1.02 [facility] Comment on above: Order Comment: 103.1 Result Comment: The validity of the calculated GFR GFRAA in patients over 70 years has not been determined. Clinical correlation is essential. Performed By: #### L 100.0500, L500.4050 #### [facility] [address] [place], [address] EST GFR - AA 140 mL/min Normal >60 [facility] Comment on above: Order Comment: 103.1 Result Comment: Afri can [place]ik GFR Calc Performed By: #### L 100.0500, L500.4050 #### [facility] [address] [place], [address] GAP 16 High 5-15 [facility] Comment on above: Order Comment: 103.1 Performed By: #### L 100.0500, L500.4050 #### [facility] [address] [place], [address] GFR/1.73 sq M.predicted among non-blacks MDRD (S/P/Bld) [Vol rate/Area] 116 mL/min/{1.73_m2} Normal >60 [facility] Comment on above: Order Comment: 103.1 Result Comment: Non- GFR Calc Performed By: #### L 100.0500, L500.4050 #### [facility] [address] [place], [address] Globulin (S) [Mass/Vol] 4.6 g/dL High 2.2-4.2 [facility] Comment on above: Order Comment: 103.1 Performed By: #### L 100.0500, L500.4050 #### [facility] [address] [place], [address] Glucose [Mass/Vol] 72 mg/dL Low 74-106 [facility] Comment on above: Order Comment: 103.1 Performed By: #### L 100.0500, L500.4050 #### [facility] [address] [place], [address] Potassium [Moles/Vol] 3.3 mmol/L Low 3.5-5.1 [facility] Comment on above: Order Comment: 103.1 Performed By: #### L 100.0500, L500.4050 #### [facility] [address] [place], [address] Sodium [Moles/Vol] 138 mmol/L Normal 136-145 [facility] Comment on above: Order Comment: 103.1 Performed By: #### L 100.0500, L500.4050 #### [facility] [address] [place], [address] T PROT 6.6 g/dL Normal 6.4-8.2 [facility] Comment on above: Order Comment: 103.1 Performed By: #### L 100.0500, L500.4050 #### [facility] [address] [place], [address] Urea nitrogen [Mass/Vol] 6 mg/dL Low 7-18 [facility] Comment on above: Order Comment: 103.1 Performed By: #### L 100.0500, L500.4050 #### [facility] [address] [place], [address] ED Nursing Noteon 11-30-2024 ED Nursing Note Patient has had some chest discomfort since this morning. Recently had a PICC line placed in upper right arm for fluids. Normal [facility] ED Provider Noteon ED Provider Note [facility] [facility] Erythrocyte distribution wid th ratioOrdered By: Jared Guzman on 11-30-2024 Erythrocyte distribution width (RBC) [Ratio] 15.1 % High 11.6-14.6 [facility] Erythrocyte distribution wid th standard deviationOrdered By: Jared Guzman on 11-30-2024 Erythrocyte distribution width (RBC) [Entitic vol] 46.6 fL High 35.1-43.9 [facility] Estimated glomerular filtrat ion rate (GFR) AmericanOrdered By: Jared Guzman on 11-30-2024 Estimated GFR (MDRD) Amer 140 mL/min >60 [facility] Comment on above: GFR Calc Glomerular filtration rate ( GFR) estimationOrdered By: Jared Guzman on 11-30-2024 Estimated GFR (MDRD) Non-Af Amer 116 mL/min >60 [facility] Comment on above: Non- GFR Calc Glucose measurementOrdered B y: Jared Guzman on 11-30-2024 Glucose [Mass/Vol] 72 mg/dL Low 74-106 [facility] HIGH SENSITIVITY TROPONIN, S ERIAL BASELINEon 11-30-2024 TROPONIN HIGH SENSITIVITY BASELINE <3 Normal [facility] Comment on above: Performed By: #### L [id number] ####Manager Sas: KEMAR ABEBE ([phone])[facility] CAMPUSWarren [facility])[address] TROPONIN HIGH SENSITIVITY BASELINE <3 Normal [facility] Comment on above: Performed By: #### L [id number], LAB17, [id number], LAB99 ####Manager Sas: KEMAR ABEBE ([phone])[facility] CAMPUSWarren [facility] ([facility])[address] HIGH SENSITIVITY TROPONIN, S ERIAL, SECOND TESTon 11-30-2024 TROPONIN HS, SERIAL REFLEX, TEST TWO <3 Normal [facility] Comment on above: Performed By: #### L [id number] ####Manager Sas: KEMAR ABEBE ([id number])[facility] CAMPUSWarren [place] ([facility])[address] Hematocrit Auto (Bld) [Volum e fraction]Ordered By: Jared Guzman on 11-30-2024 Hematocrit (Bld) [Volume fraction] 34.7 % Low 37-47 [facility] Hemoglobin measurementOrdere d By: Jared Guzman on 11-30-2024 Hemoglobin (Bld) [Mass/Vol] 10.8 g/dL Low 12.0-15.0 [facility] LIPASEon 11-30-2024 Lipase [Catalytic activity/Vol] 7 U/L Normal <55 [facility] Comment on above: Performed By: #### L [id number], LAB17, [id number], LAB99 ####Manager Sas: KEMAR ABEBE ([phone])[facility] CAMPUSWarren [facility] ([facility])[address] Laboratory - Chemistry and C hemistry - challengeOrdered By: Jared Guzman on 11-30-2024 AST [Catalytic activity/Vol] 15 U/L 15-37 [facility] MAGNESIUMon 11-30-2024 Magnesium [Mass/Vol] 1.5 mg/dL Low 1.6-2.6 [facility] Comment on above: Result Comment: ORDChris R COMMENTS:Higher values can be expected in females during menses. Performed By: #### L [id number], LAB17, [id number], LAB99 ####Manager Sas: KEMAR ABEBE ([phone])[facility] ([facility])[address] [place] [address] MCV (mean corpuscular volume ) determinationOrdered By: Jared Guzman on 11-30-2024 MCV (RBC) [Entitic vol] 85.5 fL 81-99 [facility] Mean corpuscular hemoglobin (MCH) determinationOrdered By: Jared Guzman on 11-30-2024 MCH (RBC) [Entitic mass] 26.6 pg Low 27.0-32.0 [facility] Mean corpuscular hemoglobin concentration (MCHC) determinationOrdered By: Jared Guzman on 11-30-2024 MCHC (RBC) [Mass/Vol] 31.1 g/dL Low 32-36 [facility] Mean platelet volume determi nationOrdered By: Jared Guzman on 11-30-2024 Platelet mean volume (Bld) [Entitic vol] 10.0 fL 6.2-12.0 [facility] Platelet countOrdered By: Marcel Piper on 11-30-2024 Platelets (Bld) [#/Vol] 375 10*3/uL 150-450 [facility] Potassium measurementOrdered By: Jared Guzman on 11-30-2024 Potassium [Moles/Vol] 3.3 mmol/L Low 3.5-5.1 [facility] RBC Auto (Bld) [#/Vol]Ordere d By: Jared Guzman on 11-30-2024 RBC (Bld) [#/Vol] 4.06 10*6/uL Low 4.2-5.4 [facility] Serum anion gap measurementO rdered By: Jared Guzman on 11-30-2024 Anion gap [Moles/Vol] 16 mmol/L High 5-15 [facility] Serum globulin measurementOr dered By: Jared Guzman on 11-30-2024 Globulin (S) [Mass/Vol] 4.6 g/dL High 2.2-4.2 [facility] Serum or plasma alanine jones otransferase (ALT) measurementOrdered By: Jared Guzman on 11-30-2024 ALT [Catalytic activity/Vol] 26 U/L 13-56 [facility] Serum or plasma albumin mauricio urement (mass/volume)Ordered By: Jared Guzman on 11-30-2024 Albumin [Mass/Vol] 2.0 g/dL Low 3.2-5.0 [facility] Serum or plasma alkaline abbey sphatase measurementOrdered By: Jared Guzman on 11-30-2024 ALP [Catalytic activity/Vol] 137 U/L High 45-117 [facility] Serum or plasma calcium mauricio urement (mass/volume)Ordered By: Jared Guzman on 11-30-2024 Calcium [Mass/Vol] 5.9 mg/dL Low 8.5-10.1 [facility] Serum or plasma creatinine m easurement (mass/volume)Ordered By: Jared Guzman on 11-30-2024 Creatinine [Mass/Vol] 0.57 mg/dL 0.55-1.02 [facility] Comment on above: The validity of the calculated GFR & GFRAA in patients over 70 years has not been determined. Clinical correlation is essential. Serum or plasma urea nitroge n measurement (mass/volume)Ordered By: Jared Guzman on 11-30-2024 Urea nitrogen [Mass/Vol] 6 mg/dL Low 7-18 [facility] Sodium levelOrdered By: Main Guzman on 11-30-2024 Sodium [Moles/Vol] 138 mmol/L 136-145 [facility] Total proteinOrdered By: Mike Guzman on 11-30-2024 Protein [Mass/Vol] 6.6 g/dL 6.4-8.2 [facility] US ABDOMEN LIMITEDon 025 US ABDOMEN LIMITED Normal [facility] White blood cell (WBC) count Ordered By: Jared Guzman on 11-30-2024 WBC (Bld) [#/Vol] 8.4 10*3/uL 4.4-11.0 [facility] 36on 11-28-2024 36 I have reviewed the pt's glucose log. Based on interpretation of the FSBS data I recommend the following changes to the pt's antihyperglycemic regimen: Please increase Humulin u500 to 140 units three times daily before meals. Med rec updated: Yes [facility] 36 Patients BGL Normal [facility] 36on 11-22-2024 36 [facility] 36 Unable to reach Nayan h at [facility] to reschedule appt with Makayla Guerrero on 11/27/2024. Called SNF again at [phone] and spoke to Quiana again. Rescheduled pt to 01/01/25 and per Suri Araya will call if there is a problem with this date/time. Normal [facility] 36on 11-21-2024 36 Normal [facility] 36 Patient's BGL [facility] 36on 11-20-2024 36 Addendum completed. Sending message to provider as FYI, please indicate if/when patient needs fu with provider to review. Will forward to staff to schedule if indicated. Thank you. [facility] 36on 11-19-2024 36 Normal [facility] CT CHEST ANGIOGRAM W AND/OR WO IV CONTRASTon 11-18-2024 CT CHEST ANGIOGRAM W AND/OR WO IV CONTRAST [facility] 36on 11-15-2024 36 Patient's BGL Normal [facility] 36on 11-14-2024 36 Noted. Request email ed to radiology team. [facility] Progress Noteon 11-14-2024 Progress Note [facility] 36on 11-13-2024 36 Normal [facility] BASIC METABOLIC PANELon Anion gap [Moles/Vol] 10 mmol/L Normal 3-13 [facility] Comment on above: Performed By: #### L AB15, LAB99, LAB20 ####Manager Sas: KEMAR ABEBE ([phone])[facility] CAMPUSWarren [facility]IGIL ([facility])[address] [place] [address] Calcium [Mass/Vol] 8.7 mg/dL Normal 8.4-10.2 [facility] Comment on above: Performed By: #### L AB15, LAB99, LAB20 ####Manager Sas: KEMAR ABEBE ([phone])[facility] ([facility])[address] Chloride [Moles/Vol] 105 mmol/L Normal 98-107 [facility] Comment on above: Performed By: #### L AB15, LAB99, LAB20 ####Manager Sas: KEMAR ABEBE ([id number])[facility]AMPUSWarren [facility] ([facility])[address] CO2 [Moles/Vol] 26 mmol/L Normal 22-29 [facility] Comment on above: Performed By: #### L AB15, LAB99, LAB20 ####Manager Sas: KEMAR ABEBE ([phone])[facility]AMPUSWarren [facility] ([facility])[address] Creatinine [Mass/Vol] 1.01 mg/dL Normal [facility] Comment on above: Performed By: #### L AB15, LAB99, LAB20 ####Manager Sas: KEMAR ABEBE ([phone])[facility] ([facility]AB)[address] GLOMERULAR FILTRATION RATE ML/MIN/1.73 SQ M.PREDICTED 64.7 mL/min/1.73m*2 Normal >60.0 [facility] Comment on above: Result Comment: Calc ulation based on the Chronic Kidney Disease Epidemiology Collaboration (CKD-EPI) equation refit without adjustment for race Performed By: #### L AB15, LAB99, LAB20 ####Manager Sas: KEMAR ABEBE ([id number])[facility] CAMPUSWarren [facility] ([facility])[address] [place] [address] [place] Glucose [Mass/Vol] 87 mg/dL Normal 74-100 [facility] Comment on above: Performed By: #### L AB15, LAB99, LAB20 ####Manager Sas: KEMAR ABEBE ([phone])[facility] ([facility])[address] [place] [address] [place] Potassium [Moles/Vol] 3.9 mmol/L Normal 3.5-5.1 [facility] Comment on above: Result Comment: [facility] potassium values may be up to 0.5 mmol/L lower than serum values. Performed By: #### L AB15, LAB99, LAB20 ####Manager Sas: KEMAR MOMINHARRISON ([phone])[facility] ([facility])[address] Sodium [Moles/Vol] 141 mmol/L Normal 136-145 [facility] Comment on above: Performed By: #### L AB15, LAB99, LAB20 ####Manager Sas: KEMAR MOMINHARRISON ([phone])[facility] ([facility])[address] Urea nitrogen [Mass/Vol] 18 mg/dL Normal 9-23 [facility] Comment on above: Performed By: #### L AB15, LAB99, LAB20 ####Manager Sas: KEMAR MOMINHARRISON ([phone])[facility] (SB[facility]AB)[address] [place] [address] Basic metabolic 1998 panelon 11-12-2024 Anion gap [Moles/Vol] 10 mmol/L 3 - 13 mmol/L [facility] Calcium [Mass/Vol] 8.7 mg/dL 8.4 - 10. 2 mg/dL [facility] Chloride [Moles/Vol] 105 mmol/L 98 - 10 7 mmol/L [facility] CO2 [Moles/Vol] 26 mmol/L 22 - 29 mmol/L [facility] Creatinine [Mass/Vol] 1.01 mg/dL [facility] GFR/1.73 sq M.predicted (S/P/Bld) [Vol rate/Area] 64.7 mL/min - PINF [facility] Comment on above: Calculation based on the Chronic Kidney Disease Epidemiology Collaboration (CKD-EPI) equation refit without adjustment for race Glucose [Mass/Vol] 87 mg/dL 74 - 100 mg/dL [facility] Potassium [Moles/Vol] 3.9 mmol/L 3.5 - 5.1 mmol/L [facility] Comment on above: Plasma potassium helen ues may be up to 0.5 mmol/L lower than serum values. Sodium [Moles/Vol] 141 mmol/L 136 - 145 mmol/L [facility] Urea nitrogen [Mass/Vol] 18 mg/dL 9 - 23 mg/dL [facility] CBC (HEMOGRAM)on 11-12-2024 Erythrocyte distribution width (RBC) [Ratio] 14.8 % Normal 11.5-15.0 [facility] Comment on above: Performed By: #### L AB294 ####Manager Sas: KEMAR ABEBE ([id number])[facility] ([facility])[address] [place] [address] Hematocrit (Bld) [Volume fraction] 37.7 % Normal Male: 40.0-52.0 ; Female: 35.0-47.0 [facility] Comment on above: Performed By: #### L AB294 ####Manager Sas: KEMAR ABEBE ([id number])[facility] ([facility])[address] [place] [address] Hemoglobin (Bld) [Mass/Vol] 12.0 g/dL Normal 11.7-18.0 [facility] Comment on above: Performed By: #### L AB294 ####Manager Sas: KEMAR ABEBE ([id number])[facility] ([facility])[address] [place] [address] MCH (RBC) [Entitic mass] 27.2 pg Normal 26.0-34.0 [facility] Comment on above: Performed By: #### L AB294 ####Manager Sas: KEMAR ABEBE ([phone])[facility] ([facility])[address] [place] [address] MCHC 31.8 % Normal 30.5-36.0 [facility] Comment on above: Performed By: #### L AB294 ####Manager Sas: KEMAR ABEBE ([id number])[facility] ([facility])[address] [place] [address] MCV (RBC) [Entitic vol] 85.5 fL Normal 77.0-99.[address] [facility] Comment on above: Performed By: #### L AB294 ####Manager Sas: KEMAR ABEBE ([phone])[facility] CAMPUSA [facility] ([facility])[address] [place] [address] Platelet mean volume (Bld) [Entitic vol] 9.2 fL Normal 9.0-12.7 [facility] Comment on above: Performed By: #### L AB294 ####Manager Sas: KEMAR ABEBE ([phone])[facility] CAMPUSA [facility] ([facility])[address] Platelets (Bld) [#/Vol] 391 10*3/uL Normal 140-440 [facility] Comment on above: Performed By: #### L AB294 ####Manager Sas: KEMAR ABEBE ([id number])[facility] ([facility])[address] [place] [address] RBC (Bld) [#/Vol] 4.41 10*6/uL Normal Male: 4.40-5.90; Female: 3.80-5.20 [facility] Comment on above: Performed By: #### L AB294 ####Manager Sas: KEMAR ABEBE ([id number])[facility] ([facility])[address] [place] [address] WBC (Bld) [#/Vol] 8.6 10*3/uL Normal 3.6-10.7 [facility] Comment on above: Performed By: #### L AB294 ####Manager Sas: KEMAR ABEBE ([id number])[facility] ([facility])[address] [place] [address] CBC panel Auto (Bld)on 11-12 Erythrocyte distribution width (RBC) [Ratio] 14.8 % 11.5 - 15.0 % [facility] Hematocrit (Bld) [Volume fraction] 37.7 % Male: 40.0-52.0 ; Female: 35.0-47.0 [facility] Hemoglobin (Bld) [Mass/Vol] 12 g/dL 11.7 - 18.0 g/dL [facility] MCH (RBC) [Entitic mass] 27.2 pg 26.0 - 34.[address] [facility] MCHC (RBC) [Mass/Vol] 31.8 % 30.5 - 36.0 % [facility] MCV (RBC) [Entitic vol] 85.5 fL 77.0 - 99.[address] [facility] Platelet mean volume (Bld) [Entitic vol] 9.2 fL 9.0 - 12.[address] [facility] Platelets (Bld) [#/Vol] 391 10*3/uL 140 - 440 10*3/uL [facility] RBC (Bld) [#/Vol] 4.41 10*6/uL Male: 4.40-5.90; Female: 3.80-5.20 [facility] WBC (Bld) [#/Vol] 8.6 10*3/uL 3.6 - 10.7 10*3/uL [facility] CT ABDOMEN PELVIS WO IV CONT RASTon 11-12-2024 CT ABDOMEN PELVIS WO IV CONTRAST Normal [facility] CT Abdomen and Pelvis WO con traston 11-12-2024 1. Decompressed gallbladder, with apparent cholelithiasis. 2. 9 mm nodular density right middle lobe not appreciably changed. 3. No other acute findings. Report Dictated on Electronically Signed By: Joel Haddad MD Electronically Signed Date/Time: 11/12/2024 11:13 PM [facility] Patient Name: WILL ALVARADO : 1965 [facility]#: [id number] Exam Date/Time: 11/12/2024 22:41 Procedure: CT ABDOMEN [...] body habitus versus diastases-type ventral hernia, unchanged. [facility] Joel Haddad MD - 11/12/2024 Patient [...] Electronically Signed Date/Time: 11/12/2024 11:[address] [facility] Radiology Study observation (narrative) [facility] CT Abdomen and Pelvis WO con trastOrdered By: Joel Haddad on 11-12-2024 [facility] Work Phone: ED Provider Noteon ED Provider Note Normal [facility] HEPATIC FUNCTION PANELon Albumin [Mass/Vol] 3.3 g/dL Low 3.5-5.0 [facility] Comment on above: Performed By: #### L AB15, LAB99, LAB20 ####Manager Sas: KEMAR ABEBE ([id number])[facility] (SBAB)[address] ALP [Catalytic activity/Vol] 143 U/L Normal [facility] Comment on above: Performed By: #### L AB15, LAB99, LAB20 ####Manager Sas: KEMAR ABEBE ([id number])[facility] ([facility])[address] ALT [Catalytic activity/Vol] 65 U/L Normal [facility] Comment on above: Performed By: #### L AB15, LAB99, LAB20 ####Manager Sas: KEMAR ABEBE ([id number])[facility] ([facility])[address] [place] [address] [place] AST [Catalytic activity/Vol] 42 U/L High <34 [facility] Comment on above: Performed By: #### L AB15, LAB99, LAB20 ####Manager Sas: KEMAR ABEBE ([phone])[facility] ([facility])[address] [place] [address] [place] Bilirubin [Mass/Vol] 0.4 mg/dL Normal <1.2 [facility] Comment on above: Performed By: #### L AB15, LAB99, LAB20 ####Manager Sas: KEMAR ABEBE ([phone])[facility] ([facility])[address] [place] [address] Bilirubin.indirect [Mass/Vol] 0.2 mg/dL Normal <0.5 [facility] Comment on above: Performed By: #### L AB15, LAB99, LAB20 ####Manager Sas: KEMAR ABEBE ([phone])[facility] ([facility])[address] [place] [address] Protein [Mass/Vol] 6.8 g/dL Normal 6.4-8.3 [facility] Comment on above: Result Comment: Seru m protein values are higher than plasma values. Samples from recumbent persons are lower by up to 0.5 g/dL as compared to ambulatory persons. After 60 years values are lower by up to 0.2 g/dL. Performed By: #### L AB15, LAB99, LAB20 ####Manager Sas: KEMAR ABEBE ([phone])[facility] ([facility])[address] [place] [address] Hepatic function 2000 panelo n 11-12-2024 Albumin [Mass/Vol] 3.3 g/dL Low 3.5 - 5.0 g/dL [facility] ALP [Catalytic activity/Vol] 143 U/L [facility] ALT [Catalytic activity/Vol] 65 U/L [facility] AST [Catalytic activity/Vol] 42 U/L High NINF - 34 U/L [facility] Bilirubin [Mass/Vol] 0.4 mg/dL [facility] 1.2 mg/dL [facility] Bilirubin.conjugated [Mass/Vol] 0.2 mg/dL [facility] - 0.5 mg/dL [facility] Interpretation and review of laboratory results Abnormal [facility] Protein [Mass/Vol] 6.8 g/dL 6.4 - 8.3 g/dL [facility] Comment on above: Serum protein values are higher than plasma values. Samples from recumbent persons are lower by up to 0.5 g/dL as compared to ambulatory persons. After 60 years values are lower by up to 0.2 g/dL. LIPASEon 11-12-2024 Lipase [Catalytic activity/Vol] 26 U/L Normal <55 [facility] Comment on above: Performed By: #### L AB15, LAB99, LAB20 ####Manager Sas: KEMAR ABEBE ([phone])[facility] CAMPUSWarren [facility] ([facility])[address] [place] [address] Laboratory - Chemistry and C hemistry - challengeon 11-12-2024 Lipase [Catalytic activity/Vol] 26 U/L NINF - 55 U/L [facility] Lipase [Catalytic activity/V ol]on 11-12-2024 Interpretation and review of laboratory results Normal [facility] No Panel Informationon 11-12 [facility] Urine Cultureon 11-11-2024 [facility] UNKNOWN METHOD OF COLLECTION Mixed Gram Pos Gram Neg Org [place] Count 11,000-25,000 MIX[facility] Mixed contaminants. Submit a new specimen if indicated. Normal [facility] Comment on above: Performed By: #### L 400.0001, M100.2200 #### [facility] [address] [place], [address] Bilirubin Test strip Ql (U)O rdered By: Jared Guzman on 11-10-2024 Bilirubin Ql (U) Negative Negative [facility] Epithelial cells.squamous LM Ql (Urine sed)Ordered By: Jared Guzman on 11-10-2024 Epithelial cells.squamous LM.HPF (Urine sed) [#/Area] 0 /[HPF] 5-10 [facility] Glucose Ql (U)Ordered By: Marcel Piper on 11-10-2024 Urine Glucose (UA) Normal mg/dl Normal [facility] Ketones Test strip Ql (U)Ord ered By: Jared Guzman on 11-10-2024 Ketones Ql (U) Negative Negative [facility] Microscopic analysis of urin e for red blood cells (RBC)Ordered By: Jared Guzman on 11-10-2024 Urine RBC 10-25 SEEN /hpf 0-5 [facility] Mucus LM Ql (Urine sed)Order ed By: Jared Guzman on 11-10-2024 Mucus Ql (Urine sed) 0 SEEN /hpf [facility] Nitrite Test strip Ql (U)Ord ered By: Jared Guzman on 11-10-2024 Nitrite Ql (U) Negative Negative [facility] Progress Noteon 11-10-2024 Progress Note Normal [facility] Protein Test strip Ql (U)Ord ered By: Jared Guzman on 11-10-2024 Protein Ql (U) 500 mg/dl High Negative [facility] Urinalysis, Completeon 11-10 EPI,SQUAMOUS 0-5 SEEN Normal 5-10 [facility] Comment on above: Order Comment: UNKNO WN METHOD OF COLLECTION CLEAN CATCH Performed By: #### L 400.0001, M100.2200 #### [facility] [address] [place], [address] RBC 10-25 SEEN Normal 0-5 [facility] Comment on above: Order Comment: UNKNO WN METHOD OF COLLECTION CLEAN CATCH Performed By: #### L 400.0001, M100.2200 #### [facility] [address] [place], [address] BACTERIA 3+ /hpf Normal None Seen [facility] Comment on above: Order Comment: UNKNO WN METHOD OF COLLECTION CLEAN CATCH Performed By: #### L 400.0001, M100.2200 #### [facility] [address] [place], [address] WBC 10-25 SEEN Normal 0-5 [facility] Comment on above: Order Comment: UNKNO WN METHOD OF COLLECTION CLEAN CATCH Performed By: #### L 400.0001, M100.2200 #### [facility] [address] [place], [address] Mucus Ql (Urine sed) 0 SEEN Normal [facility] Comment on above: Order Comment: UNKNO WN METHOD OF COLLECTION CLEAN CATCH Performed By: #### L 400.0001, M100.2200 #### [facility] [address] [place], [address] Urine blood detectionOrdered By: Jared Guzman on 11-10-2024 Urine Occult Blood 250 /ul High Negative [facility] Urine clarityOrdered By: Mike Guzman on 11-10-2024 Clarity (U) Cloudy Clear [facility] Urine color determinationOrd ered By: Jared Guzman on 11-10-2024 Color (U) Yellow Yellow [facility] Urine cultureOrdered By: Mike Guzman on 11-10-2024 Bacteria identified Cx Nom (U) Mixed Gram Pos & Gram Neg Org Abnormal [facility] Bacteria identified Cx Nom (U) Mixed Gram Pos & Gram Neg Org Abnormal [facility] Urine leukocyte esterase det ection by dipstickOrdered By: Jared Guzman on 11-10-2024 Leukocyte esterase Test strip Ql (U) 100 /ul High Negative [facility] Urine pHOrdered By: Jared moreno on 11-10-2024 pH (U) 6.0 [pH] 5.0 - 8.0 [facility] Urine sediment bacteria coun t by microscopy (number/high power field)Ordered By: Jared Guzman on 11-10-2024 Bacteria LM.HPF (Urine sed) [#/Area] 3 /[HPF] None Seen [facility] Urine specific gravity measu rementOrdered By: Jared Guzman on 11-10-2024 Specific gravity (U) [Rel density] 1.025 1.002-1.030 [facility] Urobilinogen Ql (U)Ordered B y: Jared Guzman on 11-10-2024 Urine Urobilinogen Normal mg/dl Normal [facility] White blood cell countOrdere d By: Jared Guzman on 11-10-2024 Urine WBC 10-25 SEEN /hpf 0-5 [facility] 36on 11-07-2024 36 Released msg to pt's nurse Ninfa. She verbalized understanding [facility] 36 [facility] 36 Patient's BGL [facility] 36on 10-30-2024 36 Released message to nurse [facility] 36 BG log reviewed. No changes to current meds. Send log as needed; otherwise, has appt 11/27 with Ana Maria. Please remind SNF to send BGL and MAR to visit. Thank you! Normal [facility] 36 Patient's BGL Normal [facility] Albumin to globulin ratioOrd ered By: Jared Guzman on 10-30-2024 Albumin/Globulin [Mass ratio] 0.8 {ratio} Low 0.9-2.4 [facility] Bilirubin, totalOrdered By: Jared Guzman on 10-30-2024 Bilirubin [Mass/Vol] 0.40 mg/dL 0.20-1.00 [facility] Comment on above: For patients on eltr ombopag therapy, use of Dimension [place] TBIL is not recommended. Blood urea nitrogen (BUN)/cr eatinine ratioOrdered By: Jared Guzman on 10-30-2024 Urea nitrogen/Creatinine [Mass ratio] 20.3 mg/mg High - [facility] CBC-Complete Blood Cnt No Di ffon 10-30-2024 Erythrocyte distribution width (RBC) [Ratio] 14.8 % High 11.6-14.6 [facility] Comment on above: Order Comment: 103-1 Performed By: #### L 100.0500, L500.4050 #### [facility] [address] [place], [address] Hematocrit (Bld) [Volume fraction] 32.9 % Low 37-47 [facility] Comment on above: Order Comment: 103-1 Performed By: #### L 100.0500, L500.4050 #### [facility] [address] [place], [address] Hemoglobin (Bld) [Mass/Vol] 10.2 g/dL Low 12.0-15.0 [facility] Comment on above: Order Comment: 103-1 Performed By: #### L 100.0500, L500.4050 #### [facility] [address] [place], [address] MCH (RBC) [Entitic mass] 27.1 pg Normal 27.0-32.0 [facility] Comment on above: Order Comment: 103-1 Performed By: #### L 100.0500, L500.4050 #### [facility] [address] [place], [address] MCHC (RBC) [Mass/Vol] 31.0 g/dL Low 32-36 [facility] Comment on above: Order Comment: 103-1 Performed By: #### L 100.0500, L500.4050 #### [facility] [address] [place], [address] MCV (RBC) [Entitic vol] 87.3 fL Normal 81-99 [facility] Comment on above: Order Comment: 103-1 Performed By: #### L 100.0500, L500.4050 #### [facility] [address] [place], [address] Platelet mean volume (Bld) [Entitic vol] 9.7 fL Normal 6.2-12.0 [facility] Comment on above: Order Comment: 103-1 Performed By: #### L 100.0500, L500.4050 #### [facility] [address] [place], [address] Platelets (Bld) [#/Vol] 387 10*3/uL Normal 150-450 [facility] Comment on above: Order Comment: 103-1 Performed By: #### L 100.0500, L500.4050 #### [facility] [address] [place], [address] RBC (Bld) [#/Vol] 3.77 10*6/uL Low 4.2-5.4 [facility] Comment on above: Order Comment: 103-1 Performed By: #### L 100.0500, L500.4050 #### [facility] [address] [place], [address] RDW SD 46.8 fl High 35.1-43.9 [facility] Comment on above: Order Comment: 103-1 Performed By: #### L 100.0500, L500.4050 #### [facility] [address] [place], [address] WBC (Bld) [#/Vol] 9.0 10*3/uL Normal 4.4-11.0 [facility] Comment on above: Order Comment: 103-1 Performed By: #### L 100.0500, L500.4050 #### [facility] [address] [place], [address] Carbon dioxide measurementOr dered By: Jared Guzman on 10-30-2024 CO2 [Moles/Vol] 26.0 mmol/L 21.0-32.0 [facility] Chloride measurementOrdered By: Jared Guzman on 10-30-2024 Chloride [Moles/Vol] 108 mmol/L High 98-107 [facility] Comprehensive Metabolic Prof ilon 10-30-2024 Albumin [Mass/Vol] 2.8 g/dL Low 3.2-5.0 [facility] Comment on above: Order Comment: 103-1 Performed By: #### L 100.0500, L500.4050 #### [facility] [address] [place], [address] Albumin/Globulin [Mass ratio] 0.8 {ratio} Low 0.9-2.4 [facility] Comment on above: Order Comment: 103-1 Performed By: #### L 100.0500, L500.4050 #### [facility] [address] [place], [address] ALK P 113 U/L Normal 45-117 [facility] Comment on above: Order Comment: 103-1 Performed By: #### L 100.0500, L500.4050 #### [facility] [address] [place], [address] ALT [Catalytic activity/Vol] 25 U/L Normal 13-56 [facility] Comment on above: Order Comment: 103-1 Performed By: #### L 100.0500, L500.4050 #### [facility] [address] [place], [address] AST [Catalytic activity/Vol] 18 U/L Normal 15-37 [facility] Comment on above: Order Comment: 103-1 Performed By: #### L 100.0500, L500.4050 #### [facility] [address] [place], [address] Bilirubin [Mass/Vol] 0.40 mg/dL Normal 0.20-1.00 [facility] Comment on above: Order Comment: Result Comment: For patients on eltrombopag therapy, use of Dimension [place] TBIL is not recommended. Performed By: #### L 100.0500, L500.4050 #### [facility] [address] [place], [address] BUN/CRE 20.3 RATIO High 10-20 [facility] Comment on above: Order Comment: 103-1 Performed By: #### L 100.0500, L500.4050 #### [facility] [address] [place], [address] CA,Total 8.8 mg/dL Normal 8.5-10.1 [facility] Comment on above: Order Comment: 103-1 Performed By: #### L 100.0500, L500.4050 #### [facility] [address] [place], [address] Chloride [Moles/Vol] 108 mmol/L High 98-107 [facility] Comment on above: Order Comment: 103-1 Performed By: #### L 100.0500, L500.4050 #### [facility] [address] [place], [address] CO2 [Moles/Vol] 26.0 mmol/L Normal 21.0-32.0 [facility] Comment on above: Order Comment: 103-1 Performed By: #### L 100.0500, L500.4050 #### [facility] [address] [place], [address] Creatinine [Mass/Vol] 0.69 mg/dL Normal 0.55-1.02 [facility] Comment on above: Order Comment: 103- Result Comment: The validity of the calculated GFR GFRAA in patients over 70 years has not been determined. Clinical correlation is essential. Performed By: #### L 100.0500, L500.4050 #### [facility] [address] [place], [address] EST GFR - AA 112 mL/min Normal >60 [facility] Comment on above: Order Comment: - Result Comment: Afri can Tajik GFR Calc Performed By: #### L 100.0500, L500.4050 #### [facility] [address] [place], [address] GAP 5 Normal 5-15 [facility] Comment on above: Order Comment: - Performed By: #### L 100.0500, L500.4050 #### [facility] [address] [place], [address] GFR/1.73 sq M.predicted among non-blacks MDRD (S/P/Bld) [Vol rate/Area] 93 mL/min/{1.73_m2} Normal >60 [facility] Comment on above: Order Comment: 103- Result Comment: Non- GFR Calc Performed By: #### L 100.0500, L500.4050 #### [facility] [address] [place], [address] Globulin (S) [Mass/Vol] 3.7 g/dL Normal 2.2-4.2 [facility] Comment on above: Order Comment: 103-1 Performed By: #### L 100.0500, L500.4050 #### [facility] [address] [place], [address] Glucose [Mass/Vol] 105 mg/dL Normal 74-106 [facility] Comment on above: Order Comment: 103-1 Result Comment: Fast ing Glucose result from 100 to 125 mg/dL suggests IMPAIRED HOMEOSTASIS per A.D.A. criteria. Performed By: #### L 100.0500, L500.4050 #### [facility] [address] [place], [address] Potassium [Moles/Vol] 4.4 mmol/L Normal 3.5-5.1 [facility] Comment on above: Order Comment: 103-1 Performed By: #### L 100.0500, L500.4050 #### [facility] [address] [place], [address] Sodium [Moles/Vol] 139 mmol/L Normal 136-145 [facility] Comment on above: Order Comment: 103-1 Performed By: #### L 100.0500, L500.4050 #### [facility] [address] [place], [address] T PROT 6.5 g/dL Normal 6.4-8.2 [facility] Comment on above: Order Comment: 103-1 Performed By: #### L 100.0500, L500.4050 #### [facility] [address] [place], [address] Urea nitrogen [Mass/Vol] 14 mg/dL Normal 7-18 [facility] Comment on above: Order Comment: 103-1 Performed By: #### L 100.0500, L500.4050 #### [facility] [address] [place], [address] Erythrocyte distribution wid th ratioOrdered By: Jared Guzman on 10-30-2024 Erythrocyte distribution width (RBC) [Ratio] 14.8 % High 11.6-14.6 [facility] Erythrocyte distribution wid th standard deviationOrdered By: Jared Guzman on 10-30-2024 Erythrocyte distribution width (RBC) [Entitic vol] 46.8 fL High 35.1-43.9 [facility] Estimated glomerular filtrat ion rate (GFR) AmericanOrdered By: Jared Guzman on 10-30-2024 Estimated GFR (MDRD) Amer 112 mL/min >60 [facility] Comment on above: GFR Calc Glomerular filtration rate ( GFR) estimationOrdered By: Jared Guzman on 10-30-2024 Estimated GFR (MDRD) Non-Af Amer 93 mL/min >60 [facility] Comment on above: Non- GFR Calc Glucose measurementOrdered B y: Jared Guzman on 10-30-2024 Glucose [Mass/Vol] 105 mg/dL 74-106 [facility] Comment on above: Fasting Glucose resu lt from 100 to 125 mg/dL suggests IMPAIRED HOMEOSTASIS per A.D.A. criteria. Hematocrit Auto (Bld) [Volum e fraction]Ordered By: Jared Guzman on 10-30-2024 Hematocrit (Bld) [Volume fraction] 32.9 % Low 37-47 [facility] Hemoglobin measurementOrdere d By: Jared Guzman on 10-30-2024 Hemoglobin (Bld) [Mass/Vol] 10.2 g/dL Low 12.0-15.0 [facility] - Chemistry and C hemistry - challengeOrdered By: Jared Guzman on 10-30-2024 AST [Catalytic activity/Vol] 18 U/L 15-37 [facility] MCV (mean corpuscular volume ) determinationOrdered By: Jared Guzman on 10-30-2024 MCV (RBC) [Entitic vol] 87.3 fL 81-99 [facility] Mean corpuscular hemoglobin (MCH) determinationOrdered By: Jraed Guzman on 10-30-2024 MCH (RBC) [Entitic mass] 27.1 pg 27.0-32.0 [facility] Mean corpuscular hemoglobin concentration (MCHC) determinationOrdered By: Jared Guzman on 10-30-2024 MCHC (RBC) [Mass/Vol] 31.0 g/dL Low 32-36 [facility] Mean platelet volume determi nationOrdered By: Jared Guzman on 10-30-2024 Platelet mean volume (Bld) [Entitic vol] 9.7 fL 6.2-12.0 [facility] Platelet countOrdered By: Marcel Piper on 10-30-2024 Platelets (Bld) [#/Vol] 387 10*3/uL 150-450 [facility] Potassium measurementOrdered By: Jared Guzman on 10-30-2024 Potassium [Moles/Vol] 4.4 mmol/L 3.5-5.1 [facility] RBC Auto (Bld) [#/Vol]Ordere d By: Jared uGzman on 10-30-2024 RBC (Bld) [#/Vol] 3.77 10*6/uL Low 4.2-5.4 [facility] Serum anion gap measurementO rdered By: Jared Guzman on 10-30-2024 Anion gap [Moles/Vol] 5 mmol/L 5-15 [facility] Serum globulin measurementOr dered By: Jared Guzman on 10-30-2024 Globulin (S) [Mass/Vol] 3.7 g/dL 2.2-4.2 [facility] Serum or plasma alanine jones otransferase (ALT) measurementOrdered By: Jared Guzman on 10-30-2024 ALT [Catalytic activity/Vol] 25 U/L 13-56 [facility] Serum or plasma albumin mauricio urement (mass/volume)Ordered By: Jared Guzman on 10-30-2024 Albumin [Mass/Vol] 2.8 g/dL Low 3.2-5.0 [facility] Serum or plasma alkaline abbey sphatase measurementOrdered By: Jared Guzman on 10-30-2024 ALP [Catalytic activity/Vol] 113 U/L 45-117 [facility] Serum or plasma calcium mauricio urement (mass/volume)Ordered By: Jared Guzman on 10-30-2024 Calcium [Mass/Vol] 8.8 mg/dL 8.5-10.1 [facility] Serum or plasma creatinine m easurement (mass/volume)Ordered By: Jared Guzman on 10-30-2024 Creatinine [Mass/Vol] 0.69 mg/dL 0.55-1.02 [facility] Comment on above: The validity of the calculated GFR & GFRAA in patients over 70 years has not been determined. Clinical correlation is essential. Serum or plasma urea nitroge n measurement (mass/volume)Ordered By: Jared Guzman on 10-30-2024 Urea nitrogen [Mass/Vol] 14 mg/dL 7-18 [facility] Sodium levelOrdered By: Main Guzman on 10-30-2024 Sodium [Moles/Vol] 139 mmol/L 136-145 [facility] Total proteinOrdered By: Mike Guzman on 10-30-2024 Protein [Mass/Vol] 6.5 g/dL 6.4-8.2 [facility] White blood cell (WBC) count Ordered By: Jared Guzman on 10-30-2024 WBC (Bld) [#/Vol] 9.0 10*3/uL 4.4-11.0 [facility] ECG 12-LEADon 2024 ECG 12-LEAD IMPRESSION: Sinus rhythm Left bundle branch block Compared to ECG 10/18/24 No significant change Electronically Signed On 2024 00:25:40 EST by Fermin Melchor Normal [facility] 36on 10-24-2024 36 Shayy called back w e scheduled an appointment with Ana Maria on 11/27/24 and another one on 03/27/25 with Thalia. Normal [facility] 36 Normal [facility] CBC (HEMOGRAM)on 10-24-2024 Erythrocyte distribution width (RBC) [Ratio] 13.8 % Normal 11.5-15.0 [facility] Comment on above: Performed By: #### L [id number] ####Manager Sas: KEMAR ABEBE ([phone])[facility] ([facility])[address] [place] [address] Hematocrit (Bld) [Volume fraction] 39.3 % Normal Male: 40.0-52.0 ; Female: 35.0-47.0 [facility] Comment on above: Performed By: #### L [id number] ####Manager Sas: KEMAR ABEBE ([phone])[facility] ([facility])[address] Hemoglobin (Bld) [Mass/Vol] 12.3 g/dL Normal 11.7-18.0 [facility] Comment on above: Performed By: #### L [id number] ####Manager Sas: KEMAR ABEBE ([phone])[facility]AMPUSWarren [place] ([facility])[address] MCH (RBC) [Entitic mass] 27.0 pg Normal 26.0-34.0 [facility] Comment on above: Performed By: #### L [id number] ####Manager Sas: KEMAR ABEBE ([phone])[facility] CAMPUSWarren [facility] HOSPITALJermaine ([facility])[address] MCHC 31.3 % Normal 30.5-36.0 [facility] Comment on above: Performed By: #### L [id number] ####Manager Sas: KEMAR ABEBE ([phone])[facility]AMPUSWarren [facility]ENTERJerm[facility] ([facility])[address] MCV (RBC) [Entitic vol] 86.2 fL Normal 77.0-99.0 [facility] Comment on above: Performed By: #### L [id number] ####Manager Sas: KEMAR ABEBE ([phone])[facility]AMPUSWarren [place] ([facility])[address] Platelet mean volume (Bld) [Entitic vol] 9.7 fL Normal 9.0-12.7 [facility] Comment on above: Performed By: #### L [id number] ####Manager Sas: KEMAR ABEBE ([phone])[facility]AMPUSWarren [facility]ENTERJ[facility] ([facility])[address] [place] [address] [place] Platelets (Bld) [#/Vol] 465 10*3/uL High 140-440 [facility] Comment on above: Performed By: #### L [id number] ####Manager Sas: KEMAR ABEBE ([phone])[facility]AMPUSWarren [facility] ([facility])[address] RBC (Bld) [#/Vol] 4.56 10*6/uL Normal Male: 4.40-5.90; Female: 3.80-5.20 [facility] Comment on above: Performed By: #### L [id number] ####Manager Sas: KEMAR ABEBE ([phone])[facility] ([facility])[address] [place] [address] WBC (Bld) [#/Vol] 9.8 10*3/uL Normal 3.6-10.7 [facility] Comment on above: Performed By: #### L [id number] ####Manager Sas: KEMAR ABEBE ([phone])[facility] ([facility])[address] [place] [address] CBC panel Auto (Bld)Ordered By: Justin Mao on 10-24-2024 Erythrocyte distribution width (RBC) [Ratio] 13.8 % 11.5 - 15.0 % [facility] Hematocrit (Bld) [Volume fraction] 39.3 % Male: 40.0-52.0 ; Female: 35.0-47.0 [facility] Hemoglobin (Bld) [Mass/Vol] 12.3 g/dL 11.7 - 18.0 g/dL [facility] Interpretation and review of laboratory results Abnormal [facility] MCH (RBC) [Entitic mass] 27 pg 26.0 - 34.[address] [facility] MCHC (RBC) [Mass/Vol] 31.3 % 30.5 - 36.0 % [facility] MCV (RBC) [Entitic vol] 86.2 fL 77.0 - 99.[address] [facility] Platelet mean volume (Bld) [Entitic vol] 9.7 fL 9.0 - 12.[address] [facility] Platelets (Bld) [#/Vol] 465 10*3/uL High 140 - 440 10*3/uL [facility] RBC (Bld) [#/Vol] 4.56 10*6/uL Male: 4.40-5.90; Female: 3.80-5.20 [facility] WBC (Bld) [#/Vol] 9.8 10*3/uL 3.6 - 10.7 10*3/uL [facility] COMPLETE URINALYSISon 2023 BACTERIA (#/HPF) IN URINE Negative Normal Negative [facility] Comment on above: Performed By: #### L [id number] ####Manager Sas: KEMAR ABEBE ([phone])[facility] ([facility])[address] BILIRUBIN, TOTAL PRESENCE IN URINE Negative Normal Negative [facility] Comment on above: Performed By: #### L [id number] ####Manager Sas: KEMAR ABEBE ([phone])[facility] ([facility])[address] Clarity (U) Clear Normal Clear [facility] Comment on above: Performed By: #### L [id number] ####Manager Sas: KEMAR ABEBE ([phone])[facility] ([facility])[address] Color (U) Light Yellow Normal Lt. Yellow [facility] Comment on above: Performed By: #### L [id number] ####Manager Sas: KEMAR ABEBE ([phone])[facility] ([facility])[address] GLUCOSE (MG/DL) IN URINE Normal Normal Normal (<70) [facility] Comment on above: Performed By: #### L [id number] ####Manager Sas: KEMAR ABEBE ([phone])[facility] ([facility])[address] HEMOGLOBIN PRESENCE IN URINE Negative Normal Negative [facility] Comment on above: Performed By: #### L [id number] ####Manager Sas: KEMAR ABEBE ([phone])[facility] ([facility])[address] Ketones Ql (U) Negative Normal Negative [facility] Comment on above: Performed By: #### L [id number] ####Manager Sas: KEMAR ABEBE ([phone])[facility]AMPUSWarren [facility] ([facility])[address] LEUKOCYTE ESTERASE PRESENCE IN URINE BY TEST STRIP Negative Normal Negative [facility] Comment on above: Performed By: #### L [id number] ####Manager Sas: KEMAR ABEBE ([phone])[facility] CAMPUSA [place] ([facility])[address] [place] [address] [place] MUCUS (#/LPF) IN URINE SEDIMENT Few Normal Negative [facility] Comment on above: Performed By: #### L [id number] ####Manager Sas: KEMAR ABEBE ([phone])[facility] CAMPUSA [place] ([facility])[address] NITRITE PRESENCE IN URINE Negative Normal Negative [facility] Comment on above: Performed By: #### L [id number] ####Manager Sas: KEMAR ABEBE ([phone])[facility] CAMPUSA [place] ([facility])[address] [place] [address] [place] NON-SQUAMOUS EPITHELIAL (#/HPF) IN URINE 3-5 Abnormal Negative [facility] Comment on above: Performed By: #### L [id number] ####Manager Sas: KEMAR ABEBE ([phone])[facility] CAMPUSA [place] ([facility])[address] pH (U) 7.0 [pH] Normal 5.0-8.0 [facility] Comment on above: Performed By: #### L [id number] ####Manager Sas: KEMAR LUDWIGSAAD ([phone])[facility] CAMPUSA [place] ([facility])[address] [place] [address] [place] Protein (U) [Mass/Vol] 70 mg/dL Abnormal Negative [facility] Comment on above: Performed By: #### L [id number] ####Manager Sas: KEMAR ABEBE ([id number])[facility] CAMPUSA [place] ([facility])[address] [place] [address] [place] RBC (#/HPF) IN URINE SEDIMENT 3-5 Abnormal 0-2 [facility] Comment on above: Performed By: #### L [id number] ####Manager Sas: KEMAR ABEBE ([phone])[facility] CAMPUSWarren [facility]ITALKATIA ([facility])[address] [place] [address] Specific gravity (U) [Rel density] 1.011 Normal 1.005-1.030 [facility] Comment on above: Performed By: #### L [id number] ####Manager Sas: KEMAR ABEBE ([phone])[facility] CAMPUSWarren [facility] HOSPITALJermaine ([facility])[address] SQUAMOUS EPITHELIAL CELLS (#/HPF) IN URINE SEDIMENT 0-2 Normal 3-5 [facility] Comment on above: Performed By: #### L [id number] ####Manager Sas: KEMAR ABEBE ([id number])[facility] ([facility]AB)[address] [place] [address] UROBILINOGEN (MG/DL) IN URINE Normal Normal Normal (0-1) [facility] Comment on above: Performed By: #### L [id number] ####Manager Sas: KEMAR ABEBE ([phone])[facility] CAMPUSWarren [place] ([facility]AB)[address] [place] [address] WBC (LEUKOCYTE) (#/HPF) IN URINE SEDIMENT 6-10 Abnormal 0-5 [facility] Comment on above: Performed By: #### L [id number] ####Manager Sas: KEMAR ABEBE ([phone])[facility]AMPUSWarren [facility] HOSPITALJermaine ([facility]AB)[address] [place] [address] COMPREHENSIVE METABOLIC PANE Iggi 10-24-2024 Albumin [Mass/Vol] 3.0 g/dL Low 3.5-5.0 [facility] Comment on above: Performed By: #### L [id number], [id number] ####Manager Sas: KEMAR ABEBE ([phone])[facility]AMPUSWarren [facility] HOSPITALJermaine ([facility])[address] [place] [address] ALP [Catalytic activity/Vol] 117 U/L Normal [facility] Comment on above: Performed By: #### L [id number], [id number] ####Manager Sas: KEMAR ABEBE ([id number])[facility] S[facility] CAMPUSA [facility]UN[facility]ENTERN ([facility])[address] ALT [Catalytic activity/Vol] 22 U/L Normal [facility] Comment on above: Performed By: #### L [id number], LAB17 ####Manager Sas: KEMAR ABEBE ([id number])[facility] ([facility])[address] Anion gap [Moles/Vol] 10 mmol/L Normal 3-13 [facility] Comment on above: Performed By: #### L [id number], LAB17 ####Manager Sas: KEMAR ABEBE ([id number])[facility] ([facility])[address] AST [Catalytic activity/Vol] 28 U/L Normal <34 [facility] Comment on above: Performed By: #### L [id number], LAB17 ####Manager Sas: KEMAR ABEBE ([phone])[facility] ([facility])[address] Bilirubin [Mass/Vol] 0.4 mg/dL Normal <1.2 [facility] Comment on above: Performed By: #### L [id number], LAB17 ####Manager Sas: KEMAR ABEBE ([phone])[facility] ([facility])[address] Calcium [Mass/Vol] 9.3 mg/dL Normal 8.4-10.2 [facility] Comment on above: Performed By: #### L [id number], LAB17 ####Manager Sas: KEMAR ABEBE ([id number])[facility] ([facility])[address] Chloride [Moles/Vol] 100 mmol/L Normal 98-107 [facility] Comment on above: Performed By: #### L [id number], LAB17 ####Manager Sas: KEMAR ABEBE ([phone])[facility] ([facility])[address] CO2 [Moles/Vol] 27 mmol/L Normal 22-29 [facility] Comment on above: Performed By: #### L [id number], [id number] ####Manager Sas: KEMAR ABEBE ([phone])[facility] (SBHLAB)[address] Creatinine [Mass/Vol] 0.84 mg/dL Normal [facility] Comment on above: Performed By: #### L [id number], [id number] ####Manager Sas: KEMAR ABEBE ([phone])[facility] ([facility] [place] [address] [place] GLOMERULAR FILTRATION RATE ML/MIN/1.73 SQ M.PREDICTED 81.2 mL/min/1.73m*2 Normal >60.0 [facility] Comment on above: Result Comment: Calc ulation based on the Chronic Kidney Disease Epidemiology Collaboration (CKD-EPI) equation refit without adjustment for race Performed By: #### L [id number], [id number] ####Manager Sas: KEMAR ABEBE ([phone])[facility] ([facility] [place] [address] [place] Glucose [Mass/Vol] 207 mg/dL High 74-100 [facility] Comment on above: Performed By: #### L [id number], [id number] ####Manager Sas: KEMAR ABEBE ([phone])[facility] [place] [address] [place] Potassium [Moles/Vol] 4.6 mmol/L Normal 3.5-5.1 [facility] Comment on above: Result Comment: [facility] potassium values may be up to 0.5 mmol/L lower than serum values. Performed By: #### L [id number], [id number] ####Manager Sas: KEMAR ABEBE ([phone])[facility] ([facility])[address] Protein [Mass/Vol] 7.0 g/dL Normal 6.4-8.3 [facility] Comment on above: Performed By: #### L [id number], [id number] ####Manager Sas: KEMAR ABEBE ([phone])[facility] ([facility])[address] Sodium [Moles/Vol] 137 mmol/L Normal 136-145 [facility] Comment on above: Performed By: #### L [id number], [id number] ####Manager Sas: KEMAR ABEBE ([phone])[facility] ([facility])[address] Urea nitrogen [Mass/Vol] 15 mg/dL Normal 9-23 [facility] Comment on above: Performed By: #### L [id number], [id number] ####Manager Sas: KEMAR ABEBE ([phone])[facility] ([facility])[address] Comprehensive metabolic 1998 panelOrdered By: Hans Watson on 10-24-2024 Albumin [Mass/Vol] 3 g/dL Low 3.5 - 5.0 g/dL [facility] ALP [Catalytic activity/Vol] 117 U/L [facility] ALT [Catalytic activity/Vol] 22 U/L [facility] Anion gap [Moles/Vol] 10 mmol/L 3 - 13 mmol/L [facility] AST [Catalytic activity/Vol] 28 U/L NINF - 34 U/L [facility] Bilirubin [Mass/Vol] 0.4 mg/dL NINF - 1.2 mg/dL [facility] Calcium [Mass/Vol] 9.3 mg/dL 8.4 - 10. 2 mg/dL [facility] Chloride [Moles/Vol] 100 mmol/L 98 - 10 7 mmol/L [facility] CO2 [Moles/Vol] 27 mmol/L 22 - 29 mmol/L [facility] Creatinine [Mass/Vol] 0.84 mg/dL [facility] GFR/1.73 sq M.predicted (S/P/Bld) [Vol rate/Area] 81.2 mL/min - PINF [facility] Comment on above: Calculation based on the Chronic Kidney Disease Epidemiology Collaboration (CKD-EPI) equation refit without adjustment for race Glucose [Mass/Vol] 207 mg/dL High 74 - 100 mg/dL [facility] Interpretation and review of laboratory results Abnormal [facility] Potassium [Moles/Vol] 4.6 mmol/L 3.5 - 5.1 mmol/L [facility] Comment on above: Plasma potassium helen ues may be up to 0.5 mmol/L lower than serum values. Protein [Mass/Vol] 7 g/dL 6.4 - 8.3 g/dL [facility] Sodium [Moles/Vol] 137 mmol/L 136 - 145 mmol/L [facility] Urea nitrogen [Mass/Vol] 15 mg/dL 9 - 23 mg/dL [facility] ED Nursing Noteon 10-24-2024 ED Nursing Note Pt placed on bedpan, urine sample collected and sent to lab. Normal [facility] ED Nursing Note Pt provided with sandwich and pop, ok per Dr Mixon Normal [facility] ED Nursing Note Normal [facility] ED Nursing Note Pt arrives by [place] Chris MS for blood in urine and change in mental status. Pt has chronic lewis and has blood present. BP elevated, BG 154 (low per SNF because pt is normally in 300 range). Pt is DNR-CCA. Normal [facility] ED Provider Noteon ED Provider Note Normal [facility] HIGH SENSITIVITY TROPONIN, S ERIAL BASELINEon 10-24-2024 TROPONIN HIGH SENSITIVITY BASELINE <3 Normal [facility] Comment on above: Performed By: #### L [id number], [id number] ####Manager Sas: KEMAR ABEBE ([phone])[facility] (SBHLAB)[address] [place] [address] LACTIC ACID WITH REFLEXon Lactate [Moles/Vol] 1.5 mmol/L Normal 0.5-2.2 [facility] Comment on above: Performed By: #### L [id number] ####Manager Sas: KEMAR ABEBE ([phone])[facility] (SB[facility]AB)[address] [place] [id number] [facility] Laboratory - Chemistry and C hemistry - challengeon 10-24-2024 Lactate [Moles/Vol] 1.5 mmol/L 0.5 - 2. 2 mmol/L [facility] Glucose [Mass/Vol] 175 mg/dL High 70 - 100 mg/dL [facility] No Panel Informationon 10-24 Troponin HS, Serial Baseline ng/L ng/L [facility] Interpretation and review of laboratory results Normal [facility] Interpretation and review of laboratory results Abnormal [facility] Performed by: [facility], [address] [place] [address] CLIA ID: [id number] [facility] Urinalysis complete panel (U )on 10-24-2024 Bacteria LM.HPF (Urine sed) [#/Area] Negative Negative /HPF [facility] Bilirubin Ql (U) Negative Negative mg/dL [facility] Clarity (U) Clear Clear [facility] Color (U) Light Yellow Lt. Yellow [facility] Epithelial cells.squamous LM.HPF (Urine sed) [#/Area] 0-2 [facility] Glucose Ql (U) Normal Normal (<70) mg/dL [facility] Hemoglobin Ql (U) Negative Negative mg/dL [facility] Interpretation and review of laboratory results Abnormal [facility] Ketones (U) [Mass/Vol] Negative Negat bernard mg/dL [facility] Leukocyte esterase Test strip Ql (U) Negative Negative Kat/uL [facility] Mucus LM.HPF (Urine sed) [#/Area] Few Negative /LPF [facility] Nitrite Ql (U) Negative Negative [facility] Non-Squamous Epithalial Cells, Urine 3-5 Abnormal Negative /HPF [facility] pH (U) 7.0 [pH] 5.0 - 8.[address] [facility] Protein (U) [Mass/Vol] 70 mg/dL Abnormal Negative [facility] RBC LM.HPF (Urine sed) [#/Area] 3-[address] [facility] Specific gravity (U) [Rel density] 1.011 1.005 - 1.030 [facility] Urobilinogen (U) [Mass/Vol] Normal Normal (0-1) mg/dL [facility] WBC LM.HPF (Urine sed) [#/Area] 6-10 Abnormal [facility] [id number] 10-23-2024 [id number] Normal [facility] [id number] Discharge med list transmitted to return back to [facility] via [facility] per TCC request. Normal [facility] [id number] Normal [facility] [id number] DC orders in and sig nazario by Dr. Thomas. BILINGUAL TEACHER AIDE set up transport. MUSSEL OPENER tasked in [facility] to send DC info [facility] . DC back to [facility] in stable condition. . Normal [facility] CBC W Auto Differential pane l (Bld)on 10-23-2024 Basophils (Bld) [#/Vol] 0.1 10*3/uL 0.0 - 0.2 10*3/uL [facility] Basophils/100 WBC (Bld) 0.7 % 0.0 - 2.0 % [facility] Eosinophils (Bld) [#/Vol] 0.2 10*3/uL 0.0 - 0.5 10*3/uL [facility] Eosinophils/100 WBC (Bld) 2.4 % 0.0 - 6.0 % [facility] Erythrocyte distribution width (RBC) [Ratio] 13.5 % 11.5 - 15.0 % [facility] Hematocrit (Bld) [Volume fraction] 29.9 % Male: 40.0-52.0 ; Female: 35.0-47.0 [facility] Hemoglobin (Bld) [Mass/Vol] 9.5 g/dL Low 11.7 - 18.0 g/dL [facility] Immature granulocytes (Bld) [#/Vol] 0.1 10*3/uL High NINF - 0.1 10*3/uL [facility] Immature granulocytes/100 WBC (Bld) 1.5 % 0.0 - 2.0 % [facility] Interpretation and review of laboratory results Abnormal [facility] Lymphocytes (Bld) [#/Vol] 1.8 10*3/uL 1.0 - 4.3 10*3/uL [facility] Lymphocytes/100 WBC (Bld) 24.6 % 15.0 - 45.0 % [facility] MCH (RBC) [Entitic mass] 27.1 pg 26.0 - 34.[address] [facility] MCHC (RBC) [Mass/Vol] 31.8 % 30.5 - 36.0 % [facility] MCV (RBC) [Entitic vol] 85.2 fL 77.0 - 99.[address] [facility] Monocytes (Bld) [#/Vol] 0.8 10*3/uL 0.0 - 0.9 10*3/uL [facility] Monocytes/100 WBC (Bld) 10.6 % 5.0 - 13.0 % [facility] Neutrophils (Bld) [#/Vol] 4.5 10*3/uL 1.8 - 7.5 10*3/uL [facility] Neutrophils/100 WBC (Bld) 60.2 % 38.0 - 82.0 % [facility] Nucleated RBC/100 WBC (Bld) [Ratio] 0 % [facility] Platelet mean volume (Bld) [Entitic vol] 9.6 fL 9.0 - 12.[address] [facility] Platelets (Bld) [#/Vol] 407 10*3/uL 140 - 440 10*3/uL [facility] RBC (Bld) [#/Vol] 3.51 10*6/uL Male: 4.40-5.90; Female: 3.80-5.20 [facility] WBC (Bld) [#/Vol] 7.5 10*3/uL 3.6 - 10.7 10*3/uL [facility] CBC WITH AUTO DIFFERENTIALon 10-23-2024 Basophils (Bld) [#/Vol] 0.1 10*3/uL Normal 0.0-0.2 [facility] Comment on above: Performed By: #### L [id number] ####Manager Sas: KEMAR ABEBE ([phone])[facility] ([facility])[address] [place] [address] Basophils/100 WBC (Bld) 0.7 % Normal 0.0-2.0 [facility] Comment on above: Performed By: #### L [id number] ####Manager Sas: KEMAR LUDWIGSAAD ([phone])[facility] ([facility])[address] [place] [address] Eosinophils (Bld) [#/Vol] 0.2 10*3/uL Normal 0.0-0.5 [facility] Comment on above: Performed By: #### L [id number] ####Manager Sas: KEMAR LUDWIGSAAD ([phone])[facility]USA [facility] (SBAB)[address] Eosinophils/100 WBC (Bld) 2.4 % Normal 0.0-6.0 [facility] Comment on above: Performed By: #### L [id number] ####Manager Sas: KEMAR MOMINHARRISON ([phone])[facility] ([facility])[address] [place] [address] Erythrocyte distribution width (RBC) [Ratio] 13.5 % Normal 11.5-15.0 [facility] Comment on above: Performed By: #### L [id number] ####Manager Sas: KEMAR ANDRAE ([phone])[facility] [place] ([facility])[address] [place] [address] Hematocrit (Bld) [Volume fraction] 29.9 % Normal Male: 40.0-52.0 ; Female: 35.0-47.0 [facility] Comment on above: Performed By: #### L [id number] ####Manager Sas: KEMAR LUDWIGSAAD ([phone])[facility])[address] [place] [address] Hemoglobin (Bld) [Mass/Vol] 9.5 g/dL Low 11.7-18.0 [facility] Comment on above: Performed By: #### L [id number] ####Manager Sas: KEMAR LUDWIGSAAD ([phone])[facility]USA [facility] ([facility])[address] [place] [address] IMMATURE GRANS % 1.5 % Normal 0.0-2.0 [facility] Comment on above: Performed By: #### L [id number] ####Manager Sas: KEMAR MOMINHiginioSAAD ([phone])[facility]USWar[facility] [place] (SB[facility]AB)[address] IMMATURE GRANS ABSOLUTE 0.1 10*3/uL High <0.1 [facility] Comment on above: Performed By: #### L [id number] ####Manager Sas: KEMAR ANDRAE ([phone])[facility] (SBAB)[address] Lymphocytes (Bld) [#/Vol] 1.8 10*3/uL Normal 1.0-4.3 [facility] Comment on above: Performed By: #### L [id number] ####Manager Sas: KEMAR ANDRAE ([phone])[facility] ([facility])[address] [place] [address] Lymphocytes/100 WBC (Bld) 24.6 % Normal 15.0-45.0 [facility] Comment on above: Performed By: #### L [id number] ####Manager Sas: KEMAR LUDWIGSAAD ([phone])[facility] ([facility])[address] [place] [address] MCH (RBC) [Entitic mass] 27.1 pg Normal 26.0-34.0 [facility] Comment on above: Performed By: #### L [id number] ####Manager Sas: KEMAR LUDWIGSAAD ([phone])[facility] ([facility])[address] [place] [address] MCHC 31.8 % Normal 30.5-36.0 [facility] Comment on above: Performed By: #### L [id number] ####Manager Sas: KEMAR ABEBE ([phone])[facility] ([facility])[address] [place] [address] MCV (RBC) [Entitic vol] 85.2 fL Normal 77.0-99.0 [facility] Comment on above: Performed By: #### L [id number] ####Manager Sas: KEMARDU ABEBE ([id number])[facility] (SBHLAB)[address] Monocytes (Bld) [#/Vol] 0.8 10*3/uL Normal 0.0-0.9 [facility] Comment on above: Performed By: #### L [id number] ####Manager Sas: KEMARDU ABEBE ([phone])[facility]AMPUSA [place] (SBHLAB)[address] Monocytes/100 WBC (Bld) 10.6 % Normal 5.0-13.[address] [facility] Comment on above: Performed By: #### L [id number] ####Manager Sas: KEMAR ABEBE ([phone])[facility]USA [place] (SBHLAB)[address] [place] [address] NEUTROPHILS ABSOLUTE 4.5 10*3/uL Normal 1.8-7.5 [facility] Comment on above: Performed By: #### L [id number] ####Manager Sas: KEMARDU ABEBE ([phone])[facility]AMPUSA [place] (SB[facility]AB)[address] Neutrophils/100 WBC (Bld) 60.2 % Normal 38.0-82.0 [facility] Comment on above: Performed By: #### L [id number] ####Manager Sas: KEMAR ANDRAE ([phone])[facility]AMPUSA [place] (SB[facility]AB)[address] NRBC 0.0 /100 WBCs Normal 0.0-2.0 [facility] Comment on above: Performed By: #### L [id number] ####Manager Sas: KEMAR ANDRAE ([phone])[facility] [place] (SB[facility]AB)[address] Platelet mean volume (Bld) [Entitic vol] 9.6 fL Normal 9.0-12.7 [facility] Comment on above: Performed By: #### L [id number] ####Manager Sas: KEMAR ABEBE ([phone])[facility] ([facility])[address] Platelets (Bld) [#/Vol] 407 10*3/uL Normal 140-440 [facility] Comment on above: Performed By: #### L [id number] ####Manager Sas: KEMAR ABEBE ([phone])[facility] [place] (SBHLAB)[address] RBC (Bld) [#/Vol] 3.51 10*6/uL Normal Male: 4.40-5.90; Female: 3.80-5.20 [facility] Comment on above: Performed By: #### L [id number] ####Manager Sas: KEMAR ABEBE ([phone])[facility] [place] (SBHLAB)[address] [place] [address] WBC (Bld) [#/Vol] 7.5 10*3/uL Normal 3.6-10.7 [facility] Comment on above: Performed By: #### L [id number] ####Manager Sas: KEMAR ABEBE ([phone])[facility] [place] (SBHLAB)[address] COMPREHENSIVE METABOLIC PANE Gigi 10-23-2024 Albumin [Mass/Vol] 2.6 g/dL Low 3.5-5.0 [facility] Comment on above: Performed By: #### L AB17, [id number] ####Manager Sas: KEMAR ABEBE ([phone])[facility] [place] (SB[facility]AB)[address] ALP [Catalytic activity/Vol] 115 U/L Normal [facility] Comment on above: Performed By: #### L AB17, [id number] ####Manager Sas: KEMAR ABEBE ([phone])[facility] [place] (SB[facility]AB)[address] ALT [Catalytic activity/Vol] 27 U/L Normal [facility] Comment on above: Performed By: #### L AB17, [id number] ####Manager Sas: KEMAR ABEBE ([phone])[facility] (HLAB)[address] Anion gap [Moles/Vol] 7 mmol/L Normal 3-13 [facility] Comment on above: Performed By: #### L AB17, [id number] ####Manager Sas: KEMAR ABEBE ([phone])[facility] ([facility])[address] AST [Catalytic activity/Vol] 18 U/L Normal <34 [facility] Comment on above: Performed By: #### L AB17, [id number] ####Manager Sas: KEMAR LUDWIGSAAD ([phone])[facility] ([facility])[address] Bilirubin [Mass/Vol] 0.3 mg/dL Normal <1.2 [facility] Comment on above: Performed By: #### L AB17, [id number] ####Manager Sas: KEMAR ABEBE ([phone])[facility] ([facility])[address] Calcium [Mass/Vol] 8.7 mg/dL Normal 8.4-10.2 [facility] Comment on above: Performed By: #### L AB17, [id number] ####Manager Sas: KEMAR ABEBE ([phone])[facility] ([facility])[address] Chloride [Moles/Vol] 101 mmol/L Normal 98-107 [facility] Comment on above: Performed By: #### L AB17, [id number] ####Manager Sas: KEMAR ABEBE ([phone])[facility] ([facility])[address] CO2 [Moles/Vol] 29 mmol/L Normal 22-29 [facility] Comment on above: Performed By: #### L AB17, [id number] ####Manager Sas: KEMAR ABEBE ([id number])[facility]USWarren [place] (SB[facility]AB)[address] Creatinine [Mass/Vol] 0.84 mg/dL Normal [facility] Comment on above: Performed By: #### L AB17, [id number] ####Manager Sas: KEMAR ABEBE ([id number])[facility] (SBHLAB)[address] GLOMERULAR FILTRATION RATE ML/MIN/1.73 SQ M.PREDICTED 81.2 mL/min/1.73m*2 Normal >60.0 [facility] Comment on above: Result Comment: Calc ulation based on the Chronic Kidney Disease Epidemiology Collaboration (CKD-EPI) equation refit without adjustment for race Performed By: #### L AB17, [id number] ####Manager Sas: KEMAR ABEBE ([id number])[facility] (SBHLAB)[address] Glucose [Mass/Vol] 214 mg/dL High 74-100 [facility] Comment on above: Performed By: #### L AB17, [id number] ####Manager Sas: KEMAR ABEBE ([phone])[facility] ([facility])[address] [place] [address] Potassium [Moles/Vol] 3.4 mmol/L Low 3.5-5.1 [facility] Comment on above: Result Comment: [facility] potassium values may be up to 0.5 mmol/L lower than serum values. Performed By: #### L AB17, [id number] ####Manager Sas: KEMAR ABEBE ([phone])[facility] (SBHLAB)[address] Protein [Mass/Vol] 6.1 g/dL Low 6.4-8.3 [facility] Comment on above: Performed By: #### L AB17, [id number] ####Manager Sas: KEMAR ABEBE ([phone])[facility] ([facility])[address] Sodium [Moles/Vol] 137 mmol/L Normal 136-145 [facility] Comment on above: Performed By: #### L AB17, [id number] ####Manager Sas: KEMAR ABEBE ([phone])[facility]USWar[facility] (SBHLAB)[address] Urea nitrogen [Mass/Vol] 21 mg/dL Normal 9-23 [facility] Comment on above: Performed By: #### L AB17, [id number] ####Manager Sas: KEMAR ABEBE ([phone])[facility]USWar[facility] (SBHLAB)[address] Comprehensive metabolic 1998 panelon 10-23-2024 Albumin [Mass/Vol] 2.6 g/dL Low 3.5 - 5.0 g/dL [facility] ALP [Catalytic activity/Vol] 115 U/L [facility] ALT [Catalytic activity/Vol] 27 U/L [facility] Anion gap [Moles/Vol] 7 mmol/L 3 - 13 mmol/L [facility] AST [Catalytic activity/Vol] 18 U/L [facility] U/L [facility] Bilirubin [Mass/Vol] 0.3 mg/dL [facility] - 1.2 mg/dL [facility] Calcium [Mass/Vol] 8.7 mg/dL 8.4 - 10. 2 mg/dL [facility] Chloride [Moles/Vol] 101 mmol/L 98 - 10 7 mmol/L [facility] CO2 [Moles/Vol] 29 mmol/L 22 - 29 mmol/L [facility] Creatinine [Mass/Vol] 0.84 mg/dL [facility] GFR/1.73 sq M.predicted (S/P/Bld) [Vol rate/Area] 81.2 mL/min - PINF [facility] Comment on above: Calculation based on the Chronic Kidney Disease Epidemiology Collaboration (CKD-EPI) equation refit without adjustment for race Glucose [Mass/Vol] 214 mg/dL High 74 - 100 mg/dL [facility] Interpretation and review of laboratory results Abnormal [facility] Potassium [Moles/Vol] 3.4 mmol/L Low 3.5 - 5.1 mmol/L [facility] Comment on above: Plasma potassium helen ues may be up to 0.5 mmol/L lower than serum values. Protein [Mass/Vol] 6.1 g/dL Low 6.4 - 8.3 g/dL [facility] Sodium [Moles/Vol] 137 mmol/L 136 - 145 mmol/L [facility] Urea nitrogen [Mass/Vol] 21 mg/dL 9 - 23 mg/dL [facility] - Chemistry and C hemistry - challengeon 10-23-2024 Glucose [Mass/Vol] 309 mg/dL High 70 - 100 mg/dL [facility] Glucose [Mass/Vol] 296 mg/dL High 70 - 100 mg/dL [facility] Glucose [Mass/Vol] 240 mg/dL High 70 - 100 mg/dL [facility] Magnesium [Mass/Vol] 1.9 mg/dL 1.6 - 2 .6 mg/dL [facility] MAGNESIUMon 10-23-2024 Magnesium [Mass/Vol] 1.9 mg/dL Normal 1.6-2.6 [facility] Comment on above: Result Comment: MARIE Askew COMMENTS:Higher values can be expected in females during menses. Performed By: #### L AB17, [id number] ####Manager Sas: KEMAR ABEBE ([phone])[facility]AMPUSWarren [facility] (SBHLAB)[address] [place] [address] Magnesium [Mass/Vol]on 10-23 Interpretation and review of laboratory results Normal [facility] Higher values can be expected in females during menses. [facility] No Panel Informationon 10-23 Interpretation and review of laboratory results Abnormal [facility] by: [facility], [address] [facility] [address] CLIA ID: [id number] [facility] Interpretation and review of laboratory results Abnormal [facility] Performed by: [facility], [address] [facility] [address] CLIA ID: [id number] [facility] Interpretation and review of laboratory results Abnormal [facility] Performed by: [facility], [address] [facility] [address] CLIA ID: [id number] [facility] Nursing Noteon 10-23-2024 Nursing Note Report called to Cassy kelley RN at [facility]. Normal [facility] Progress Noteon 10-23-2024 Progress Note Normal [facility] Progress Note Normal [facility] Progress Note Normal [facility] 30on 10-22-2024 30 Normal [facility] 30 Normal [facility] Bacteria identified Aer cx N om (Unsp spec)Ordered By: Timi Ryder on 10-22-2024 Gram Stain Result Few Polymorphonuclea r leukocytes per low power field [facility] Gram Stain Result No organisms seen [facility] CBC W Auto Differential pane l (Bld)on 10-22-2024 Basophils (Bld) [#/Vol] 0.1 10*3/uL 0.0 - 0.2 10*3/uL [facility] Basophils/100 WBC (Bld) 0.5 % 0.0 - 2.0 % [facility] Eosinophils (Bld) [#/Vol] 0.2 10*3/uL 0.0 - 0.5 10*3/uL [facility] Eosinophils/100 WBC (Bld) 1.7 % 0.0 - 6.0 % [facility] Erythrocyte distribution width (RBC) [Ratio] 13.5 % 11.5 - 15.0 % [facility] Hematocrit (Bld) [Volume fraction] 30 % Male: 40.0-52.0 ; Female: 35.0-47.0 [facility] Hemoglobin (Bld) [Mass/Vol] 9.7 g/dL Low 11.7 - 18.0 g/dL [facility] Immature granulocytes (Bld) [#/Vol] 0.1 10*3/uL High NINF - 0.1 10*3/uL [facility] Immature granulocytes/100 WBC (Bld) 1.1 % 0.0 - 2.0 % [facility] Interpretation and review of laboratory results Abnormal [facility] Lymphocytes (Bld) [#/Vol] 1.6 10*3/uL 1.0 - 4.3 10*3/uL [facility] Lymphocytes/100 WBC (Bld) 15.9 % 15.0 - 45.0 % [facility] MCH (RBC) [Entitic mass] 27.2 pg 26.0 - 34.[address] [facility] MCHC (RBC) [Mass/Vol] 32.3 % 30.5 - 36.0 % [facility] MCV (RBC) [Entitic vol] 84.3 fL 77.0 - 99.[address] [facility] Monocytes (Bld) [#/Vol] 0.8 10*3/uL 0.0 - 0.9 10*3/uL [facility] Monocytes/100 WBC (Bld) 8.2 % 5.0 - 13.0 % [facility] Neutrophils (Bld) [#/Vol] 7.1 10*3/uL 1.8 - 7.5 10*3/uL [facility] Neutrophils/100 WBC (Bld) 72.6 % 38.0 - 82.0 % [facility] Nucleated RBC/100 WBC (Bld) [Ratio] 0 % [facility] Platelet mean volume (Bld) [Entitic vol] 9.5 fL 9.0 - 12.[address] [facility] Platelets (Bld) [#/Vol] 419 10*3/uL 140 - 440 10*3/uL [facility] RBC (Bld) [#/Vol] 3.56 10*6/uL Male: 4.40-5.90; Female: 3.80-5.20 [facility] WBC (Bld) [#/Vol] 9.7 10*3/uL 3.6 - 10.7 10*3/uL [facility] CBC WITH AUTO DIFFERENTIALon 10-22-2024 Basophils (Bld) [#/Vol] 0.1 10*3/uL Normal 0.0-0.2 [facility] Comment on above: Performed By: #### L [id number] ####Manager Sas: KEMAR ABEBE ([phone])[facility] (SB[facility])[address] Basophils/100 WBC (Bld) 0.5 % Normal 0.0-2.0 [facility] Comment on above: Performed By: #### L [id number] ####Manager Sas: KEMAR ABEBE ([phone])[facility]OSPITALJerm[facility] (SBHLAB)[address] Eosinophils (Bld) [#/Vol] 0.2 10*3/uL Normal 0.0-0.5 [facility] Comment on above: Performed By: #### L [id number] ####Manager Sas: KEMAR ABEBE ([phone])[facility]AMPUSA [facility] (SB[facility])[address] Eosinophils/100 WBC (Bld) 1.7 % Normal 0.0-6.0 [facility] Comment on above: Performed By: #### L [id number] ####Manager Sas: KEMAR ABEBE ([phone])[facility] ([facility])[address] Erythrocyte distribution width (RBC) [Ratio] 13.5 % Normal 11.5-15.0 [facility] Comment on above: Performed By: #### L [id number] ####Manager Sas: KEMAR ABEBE ([phone])[facility] ([facility])[address] [place] [address] Hematocrit (Bld) [Volume fraction] 30.0 % Normal Male: 40.0-52.0 ; Female: 35.0-47.0 [facility] Comment on above: Performed By: #### L [id number] ####Manager Sas: KEMAR ABEBE ([phone])[facility] ([facility])[address] [place] [address] Hemoglobin (Bld) [Mass/Vol] 9.7 g/dL Low 11.7-18.0 [facility] Comment on above: Performed By: #### L [id number] ####Manager Sas: KEMAR ABEBE ([phone])[facility] (SBAB)[address] IMMATURE GRANS % 1.1 % Normal 0.0-2.0 [facility] Comment on above: Performed By: #### L [id number] ####Manager Sas: KEMAR ABEBE ([phone])[facility] ([facility])[address] IMMATURE GRANS ABSOLUTE 0.1 10*3/uL High <0.1 [facility] Comment on above: Performed By: #### L [id number] ####Manager Sas: KEMAR LUDWIGSAAD ([phone])[facility]AMPUSA [place] (SBHLAB)[address] Lymphocytes (Bld) [#/Vol] 1.6 10*3/uL Normal 1.0-4.3 [facility] Comment on above: Performed By: #### L [id number] ####Manager Sas: KEMAR LUDWIGSAAD ([phone])[facility]AMPUSA [place] (SBHLAB)[address] Lymphocytes/100 WBC (Bld) 15.9 % Normal 15.0-45.0 [facility] Comment on above: Performed By: #### L [id number] ####Manager Sas: KEMAR ABEBE ([phone])[facility]AMPUSA [place] (SBHLAB)[address] MCH (RBC) [Entitic mass] 27.2 pg Normal 26.0-34.0 [facility] Comment on above: Performed By: #### L [id number] ####Manager Sas: KEMAR LUDWIGSAAD ([phone])[facility]AMPUSA [place] (SBHLAB)[address] MCHC 32.3 % Normal 30.5-36.0 [facility] Comment on above: Performed By: #### L [id number] ####Manager Sas: KEMAR ABEBE ([phone])[facility]AMPUSA [place] (SBHLAB)[address] MCV (RBC) [Entitic vol] 84.3 fL Normal 77.0-99.0 [facility] Comment on above: Performed By: #### L [id number] ####Manager Sas: KEMAR ABEBE ([phone])[facility]AMPUSA [place] (SBHLAB)[address] [place] [address] [place] Monocytes (Bld) [#/Vol] 0.8 10*3/uL Normal 0.0-0.9 [facility] Comment on above: Performed By: #### L [id number] ####Manager Sas: KEMAR ABEBE ([phone])[facility] [place] (SBHLAB)[address] Monocytes/100 WBC (Bld) 8.2 % Normal 5.0-13.[address] [facility] Comment on above: Performed By: #### L [id number] ####Manager Sas: KEMAR ABEBE ([phone])[facility] [place] (SBHLAB)[address] NEUTROPHILS ABSOLUTE 7.1 10*3/uL Normal 1.8-7.5 [facility] Comment on above: Performed By: #### L [id number] ####Manager Sas: KEMAR ABEBE ([phone])[facility] [place] (SBHLAB)[address] Neutrophils/100 WBC (Bld) 72.6 % Normal 38.0-82.0 [facility] Comment on above: Performed By: #### L [id number] ####Manager Sas: KEMAR ABEBE ([phone])[facility] [place] (SBHLAB)[address] NRBC 0.0 /100 WBCs Normal 0.0-2.0 [facility] Comment on above: Performed By: #### L [id number] ####Manager Sas: KEMAR ABEBE ([phone])[facility] [place] (SBHLAB)[address] Platelet mean volume (Bld) [Entitic vol] 9.5 fL Normal 9.0-12.7 [facility] Comment on above: Performed By: #### L [id number] ####Manager Sas: KEMAR ABEBE ([phone])[facility]AMPUSA [place] (SBHLAB)[address] [place] [address] [place] Platelets (Bld) [#/Vol] 419 10*3/uL Normal 140-440 [facility] Comment on above: Performed By: #### L [id number] ####Manager Sas: KEMAR ABEBE ([phone])[facility]AMPUSA [place] (SBHLAB)[address] RBC (Bld) [#/Vol] 3.56 10*6/uL Normal Male: 4.40-5.90; Female: 3.80-5.20 [facility] Comment on above: Performed By: #### L [id number] ####Manager Sas: KEMAR ABEBE ([phone])[facility]AMPUSA [place] (SBHLAB)[address] WBC (Bld) [#/Vol] 9.7 10*3/uL Normal 3.6-10.7 [facility] Comment on above: Performed By: #### L [id number] ####Manager Sas: KEMAR ABEBE ([phone])[facility]AMPUSA [place] (SBHLAB)[address] COMPREHENSIVE METABOLIC PANE Gigi 10-22-2024 Albumin [Mass/Vol] 2.7 g/dL Low 3.5-5.0 [facility] Comment on above: Performed By: #### L AB17, [id number] ####Manager Sas: KEMAR ABEBE ([phone])[facility]AMPUSA [place] (SBHLAB)[address] ALP [Catalytic activity/Vol] 127 U/L Normal [facility] Comment on above: Performed By: #### L AB17, [id number] ####Manager Sas: KEMAR ABEBE ([phone])[facility]AMPUSA [place] (SBHLAB)[address] ALT [Catalytic activity/Vol] 32 U/L Normal [facility] Comment on above: Performed By: #### L AB17, [id number] ####Manager Sas: KEMAR ABEBE ([phone])[facility]AMPUSA [place] (SBHLAB)[address] Anion gap [Moles/Vol] 11 mmol/L Normal 3-13 [facility] Comment on above: Performed By: #### L AB17, [id number] ####Manager Sas: KEMAR ABEBE ([phone])[facility]AMPUSA [place] (SBHLAB)[address] AST [Catalytic activity/Vol] 19 U/L Normal <34 [facility] Comment on above: Performed By: #### L AB17, [id number] ####Manager Sas: KEMAR ABEBE ([phone])[facility]AMPUSA [place] (SBHLAB)[address] Bilirubin [Mass/Vol] 0.3 mg/dL Normal <1.2 [facility] Comment on above: Performed By: #### L AB17, [id number] ####Manager Sas: KEMAR ABEBE ([phone])[facility]AMPUSA [place] (SBHLAB)[address] Calcium [Mass/Vol] 8.7 mg/dL Normal 8.4-10.2 [facility] Comment on above: Performed By: #### L AB17, [id number] ####Manager Sas: KEMAR ABEBE ([phone])[facility]AMPUSA [place] (SBHLAB)[address] Chloride [Moles/Vol] 104 mmol/L Normal 98-107 [facility] Comment on above: Performed By: #### L AB17, [id number] ####Manager Sas: KEMAR ABEBE ([phone])[facility]AMPUSA [place] (SBHLAB)[address] [place] [address] [place] CO2 [Moles/Vol] 24 mmol/L Normal 22-29 [facility] Comment on above: Performed By: #### L AB17, [id number] ####Manager Sas: KEMAR ABEBE ([phone])[facility]AMPUSA [place] (SBHLAB)[address] Creatinine [Mass/Vol] 1.05 mg/dL Normal [facility] Comment on above: Performed By: #### L AB17, [id number] ####Manager Sas: KEMAR ABEBE ([phone])[facility] ([facility])[address] GLOMERULAR FILTRATION RATE ML/MIN/1.73 SQ M.PREDICTED 62.1 mL/min/1.73m*2 Normal >60.0 [facility] Comment on above: Result Comment: Calc ulation based on the Chronic Kidney Disease Epidemiology Collaboration (CKD-EPI) equation refit without adjustment for race Performed By: #### L AB17, [id number] ####Manager Sas: KEMAR ABEBE ([phone])[facility] ([facility])[address] [place] [address] Glucose [Mass/Vol] 148 mg/dL High 74-100 [facility] Comment on above: Performed By: #### L AB17, [id number] ####Manager Sas: KEMAR ABEBE ([phone])[facility] ([facility])[address] [place] [address] Potassium [Moles/Vol] 3.3 mmol/L Low 3.5-5.1 [facility] Comment on above: Result Comment: [facility] potassium values may be up to 0.5 mmol/L lower than serum values. Performed By: #### L AB17, [id number] ####Manager Sas: KEMAR ABEBE ([phone])[facility] ([facility])[address] Protein [Mass/Vol] 6.4 g/dL Normal 6.4-8.3 [facility] Comment on above: Performed By: #### L AB17, [id number] ####Manager Sas: KEMAR ABEBE ([phone])[facility] ([facility])[address] [place] [address] Sodium [Moles/Vol] 139 mmol/L Normal 136-145 [facility] Comment on above: Performed By: #### L AB17, [id number] ####Manager Sas: KEMAR ABEBE ([phone])[facility] (SBHLAB)[address] Urea nitrogen [Mass/Vol] 35 mg/dL High 9- [facility] Comment on above: Performed By: #### L AB17, [id number] ####Manager Sas: KEMAR ABEBE ([phone])[facility] (SBHL[facility])[address] Comprehensive metabolic 1998 panelon 10-22-2024 Albumin [Mass/Vol] 2.7 g/dL Low 3.5 - 5.0 g/dL [facility] ALP [Catalytic activity/Vol] 127 U/L [facility] ALT [Catalytic activity/Vol] 32 U/L [facility] Anion gap [Moles/Vol] 11 mmol/L 3 - 13 mmol/L [facility] AST [Catalytic activity/Vol] 19 U/L [facility] U/L [facility] Bilirubin [Mass/Vol] 0.3 mg/dL NINF - 1.2 mg/dL [facility] Calcium [Mass/Vol] 8.7 mg/dL 8.4 - 10. 2 mg/dL [facility] Chloride [Moles/Vol] 104 mmol/L 98 - 10 7 mmol/L [facility] CO2 [Moles/Vol] 24 mmol/L 22 - 29 mmol/L [facility] Creatinine [Mass/Vol] 1.05 mg/dL [facility] GFR/1.73 sq M.predicted (S/P/Bld) [Vol rate/Area] 62.1 mL/min - PINF [facility] Comment on above: Calculation based on the Chronic Kidney Disease Epidemiology Collaboration (CKD-EPI) equation refit without adjustment for race Glucose [Mass/Vol] 148 mg/dL High 74 - 100 mg/dL [facility] Interpretation and review of laboratory results Abnormal [facility] Potassium [Moles/Vol] 3.3 mmol/L Low 3.5 - 5.1 mmol/L [facility] Comment on above: Plasma potassium helen ues may be up to 0.5 mmol/L lower than serum values. Protein [Mass/Vol] 6.4 g/dL 6.4 - 8.3 g/dL [facility] Sodium [Moles/Vol] 139 mmol/L 136 - 145 mmol/L [facility] Urea nitrogen [Mass/Vol] 35 mg/dL High 9 - 23 mg/dL [facility] - Chemistry and C hemistry - challengeon 10-22-2024 Glucose [Mass/Vol] 312 mg/dL High 70 - 100 mg/dL [facility] Glucose [Mass/Vol] 283 mg/dL High 70 - 100 mg/dL [facility] Glucose [Mass/Vol] 295 mg/dL High 70 - 100 mg/dL [facility] Glucose [Mass/Vol] 258 mg/dL High 70 - 100 mg/dL [facility] Glucose [Mass/Vol] 210 mg/dL High 70 - 100 mg/dL [facility] Magnesium [Mass/Vol] 2 mg/dL 1.6 - 2 .6 mg/dL [facility] - Microbiology an d Antimicrobial susceptibilityOrdered By: Timi Ryder on 10-22-2024 Bacteria identified Aer cx Nom (Unsp spec) No growth at [address] [facility] MAGNESIUMon 10-22-2024 Magnesium [Mass/Vol] 2.0 mg/dL Normal 1.6-2.6 [facility] Comment on above: Result Comment: MARIE Askew COMMENTS:Higher values can be expected in females during menses. Performed By: #### L AB17, [id number] ####Manager Sas: KEMAR ABEBE ([phone])[facility] CAMPUSWarren [facility] (SBHLAB)[address] [place] [address] Magnesium [Mass/Vol]on 10-22 Interpretation and review of laboratory results Normal [facility] Higher values can be expected in females during menses. [facility] No Panel Informationon 10-22 Interpretation and review of laboratory results Abnormal [facility]formed by: [facility], [address] [facility] [address] CLIA ID: [id number] [facility] Interpretation and review of laboratory results Abnormal [facility] Performed by: [facility], [address] [facility] [address] CLIA ID: [id number] [facility] Interpretation and review of laboratory results Abnormal [facility] Performed by: [facility], [address] [facility] [address] CLIA ID: [id number] [facility] Interpretation and review of laboratory results Abnormal [facility] Performed by: [facility], [address] [facility] [address] CLIA ID: [id number] [facility] Progress Noteon 10-22-2024 Progress Note Normal [facility] Progress Note Normal [facility] [id number] 10-21-2024 [id number] Normal [facility] CBC W Auto Differential pane l (Bld)on 10-21-2024 Basophils (Bld) [#/Vol] 0.1 10*3/uL 0.0 - 0.2 10*3/uL [facility] Basophils/100 WBC (Bld) 0.6 % 0.0 - 2.0 % [facility] Eosinophils (Bld) [#/Vol] 0.2 10*3/uL 0.0 - 0.5 10*3/uL [facility] Eosinophils/100 WBC (Bld) 1.6 % 0.0 - 6.0 % [facility] Erythrocyte distribution width (RBC) [Ratio] 13.4 % 11.5 - 15.0 % [facility] Hematocrit (Bld) [Volume fraction] 31.6 % Male: 40.0-52.0 ; Female: 35.0-47.0 [facility] Hemoglobin (Bld) [Mass/Vol] 10.2 g/dL Low 11.7 - 18.0 g/dL [facility] Immature granulocytes (Bld) [#/Vol] 0.1 10*3/uL High NINF - 0.1 10*3/uL [facility] Immature granulocytes/100 WBC (Bld) 0.8 % 0.0 - 2.0 % [facility] Interpretation and review of laboratory results Abnormal [facility] Lymphocytes (Bld) [#/Vol] 1.8 10*3/uL 1.0 - 4.3 10*3/uL [facility] Lymphocytes/100 WBC (Bld) 15.3 % 15.0 - 45.0 % [facility] MCH (RBC) [Entitic mass] 27.3 pg 26.0 - 34.[address] [facility] MCHC (RBC) [Mass/Vol] 32.3 % 30.5 - 36.0 % [facility] MCV (RBC) [Entitic vol] 84.7 fL 77.0 - 99.[address] [facility] Monocytes (Bld) [#/Vol] 0.8 10*3/uL 0.0 - 0.9 10*3/uL [facility] Monocytes/100 WBC (Bld) 6.8 % 5.0 - 13.0 % [facility] Neutrophils (Bld) [#/Vol] 8.9 10*3/uL High 1.8 - 7.5 10*3/uL [facility] Neutrophils/100 WBC (Bld) 74.9 % 38.0 - 82.0 % [facility] Nucleated RBC/100 WBC (Bld) [Ratio] 0 % [facility] Platelet mean volume (Bld) [Entitic vol] 9.7 fL 9.0 - 12.[address] [facility] Platelets (Bld) [#/Vol] 396 10*3/uL 140 - 440 10*3/uL [facility] RBC (Bld) [#/Vol] 3.73 10*6/uL Male: 4.40-5.90; Female: 3.80-5.20 [facility] WBC (Bld) [#/Vol] 11.9 10*3/uL High 3.6 - 10.7 10*3/uL [facility] CBC WITH AUTO DIFFERENTIALon 10-21-2024 Basophils (Bld) [#/Vol] 0.1 10*3/uL Normal 0.0-0.2 [facility] Comment on above: Performed By: #### L [id number] ####Manager Sas: KEMAR ABEBE ([phone])[facility] (SB[facility])[address] Basophils/100 WBC (Bld) 0.6 % Normal 0.0-2.0 [facility] Comment on above: Performed By: #### L [id number] ####Manager Sas: KEMAR ABEBE ([phone])[facility] (SB[facility])[address] Eosinophils (Bld) [#/Vol] 0.2 10*3/uL Normal 0.0-0.5 [facility] Comment on above: Performed By: #### L [id number] ####Manager Sas: KEMAR ABEBE ([phone])[facility] ([facility])[address] [place] [address] Eosinophils/100 WBC (Bld) 1.6 % Normal 0.0-6.0 [facility] Comment on above: Performed By: #### L [id number] ####Manager Sas: KEMAR ABEBE ([phone])[facility] ([facility])[address] [place] [address] Erythrocyte distribution width (RBC) [Ratio] 13.4 % Normal 11.5-15.0 [facility] Comment on above: Performed By: #### L [id number] ####Manager Sas: KEMAR LUDWIGSAAD ([phone])[facility] ([facility])[address] [place] [address] Hematocrit (Bld) [Volume fraction] 31.6 % Normal Male: 40.0-52.0 ; Female: 35.0-47.0 [facility] Comment on above: Performed By: #### L [id number] ####Manager Sas: KEMAR ABEBE ([phone])[facility] ([facility])[address] [place] [address] Hemoglobin (Bld) [Mass/Vol] 10.2 g/dL Low 11.7-18.0 [facility] Comment on above: Performed By: #### L [id number] ####Manager Sas: KEMAR LUDWIGSAAD ([phone])[facility] ([facility])[address] [place] [address] IMMATURE GRANS % 0.8 % Normal 0.0-2.0 [facility] Comment on above: Performed By: #### L [id number] ####Manager Sas: KEMAR ABEBE ([phone])[facility] ([facility])[address] [place] [address] IMMATURE GRANS ABSOLUTE 0.1 10*3/uL High <0.1 [facility] Comment on above: Performed By: #### L [id number] ####Manager Sas: KEMAR ABEBE ([phone])[facility] CAMPUSA [facility] ([facility])[address] Lymphocytes (Bld) [#/Vol] 1.8 10*3/uL Normal 1.0-4.3 [facility] Comment on above: Performed By: #### L [id number] ####Manager Sas: KEMAR ABEBE ([phone])[facility] CAMPUSA [place] (SBHLAB)[address] Lymphocytes/100 WBC (Bld) 15.3 % Normal 15.0-45.0 [facility] Comment on above: Performed By: #### L [id number] ####Manager Sas: KEMAR ABEBE ([phone])[facility] CAMPUSA [facility] (SBHLAB)[address] MCH (RBC) [Entitic mass] 27.3 pg Normal 26.0-34.0 [facility] Comment on above: Performed By: #### L [id number] ####Manager Sas: KEMAR ABEBE ([phone])[facility] ([facility])[address] [place] [address] MCHC 32.3 % Normal 30.5-36.0 [facility] Comment on above: Performed By: #### L [id number] ####Manager Sas: KEMAR ABEBE ([phone])[facility] CAMPUSA [place] ([facility])[address] [place] [address] MCV (RBC) [Entitic vol] 84.7 fL Normal 77.0-99.0 [facility] Comment on above: Performed By: #### L [id number] ####Manager Sas: KEMAR ABEBE ([phone])[facility] CAMPUSA [facility] ([facility])[address] [place] [address] Monocytes (Bld) [#/Vol] 0.8 10*3/uL Normal 0.0-0.9 [facility] Comment on above: Performed By: #### L [id number] ####Manager Sas: KEMAR ABEBE ([phone])[facility] [place] ([facility])[address] Monocytes/100 WBC (Bld) 6.8 % Normal 5.0-13.[address] [facility] Comment on above: Performed By: #### L [id number] ####Manager Sas: KEMAR ABEBE ([phone])[facility] CAMPUSA [place] ([facility])[address] NEUTROPHILS ABSOLUTE 8.9 10*3/uL High 1.8-7.5 [facility] Comment on above: Performed By: #### L [id number] ####Manager Sas: KEMAR ABEBE ([phone])[facility] CAMPUSA [place] ([facility])[address] Neutrophils/100 WBC (Bld) 74.9 % Normal 38.0-82.0 [facility] Comment on above: Performed By: #### L [id number] ####Manager Sas: KEMAR ABEBE ([phone])[facility]AMPUSA [place] (SBHLAB)[address] NRBC 0.0 /100 WBCs Normal 0.0-2.0 [facility] Comment on above: Performed By: #### L [id number] ####Manager Sas: KEMAR ABEBE ([phone])[facility]AMP[facility] [place] (SBHLAB)[address] Platelet mean volume (Bld) [Entitic vol] 9.7 fL Normal 9.0-12.7 [facility] Comment on above: Performed By: #### L [id number] ####Manager Sas: KEMAR ABEBE ([phone])[facility]AMPUSA [place] (SBHLAB)[address] [place] [address] [place] Platelets (Bld) [#/Vol] 396 10*3/uL Normal 140-440 [facility] Comment on above: Performed By: #### L [id number] ####Manager Sas: KEMAR ABEBE ([phone])[place] (SBHLAB)[address] RBC (Bld) [#/Vol] 3.73 10*6/uL Normal Male: 4.40-5.90; Female: 3.80-5.20 [facility] Comment on above: Performed By: #### L [id number] ####Manager Sas: KEMAR ABEBE ([phone])[facility]AMPUSA [place] (SBHLAB)[address] WBC (Bld) [#/Vol] 11.9 10*3/uL High 3.6-10.7 [facility] Comment on above: Performed By: #### L [id number] ####Manager Sas: KEMAR ABEBE ([phone])[facility] CAMPUSWarren [place]ADEMARYN (SBHLAB)[address] COMPREHENSIVE METABOLIC PANE Gigi 10-21-2024 Albumin [Mass/Vol] 2.7 g/dL Low 3.5-5.0 [facility] Comment on above: Performed By: #### L [id number], [id number] ####Manager Sas: KEMAR ABEBE ([phone])[facility] CAMPUSWarren [place]ARYN (SBHLAB)[address] ALP [Catalytic activity/Vol] 135 U/L Normal [facility] Comment on above: Performed By: #### L [id number], [id number] ####Manager Sas: KEMAR ABEBE ([phone])[facility]AMPUSA [place] (SBHLAB)[address] ALT [Catalytic activity/Vol] 42 U/L Normal [facility] [facility] Comment on above: Performed By: #### L AB17, [id number] ####Manager Sas: KEMAR ABEBE ([phone])[facility]AMPUSA [place] (SBHLAB)[address] Anion gap [Moles/Vol] 12 mmol/L Normal 3-13 [facility] Comment on above: Performed By: #### L AB17, [id number] ####Manager Sas: KEMAR ABEBE ([phone])[facility]AMPUSA [place] (SBHLAB)[address] AST [Catalytic activity/Vol] 20 U/L Normal <34 [facility] Comment on above: Performed By: #### L AB17, [id number] ####Manager Sas: KEMAR ABEBE ([phone])[facility]AMP[facility] [place] (SBHLAB)[address] Bilirubin [Mass/Vol] 0.3 mg/dL Normal <1.2 [facility] Comment on above: Performed By: #### L AB17, [id number] ####Manager Sas: KEMAR ABEBE ([phone])[facility]AMPUSA [facility] (SBHLAB)[address] Calcium [Mass/Vol] 8.8 mg/dL Normal 8.4-10.2 [facility] Comment on above: Performed By: #### L AB17, [id number] ####Manager Sas: KEMAR ABEBE ([phone])[facility] [place] (SBHLAB)[address] Chloride [Moles/Vol] 100 mmol/L Normal 98-107 [facility] Comment on above: Performed By: #### L AB17, [id number] ####Manager Sas: KEMAR ABEBE ([phone])[facility]AMP[facility] [place] (SBHLAB)155 [place] [address] [place] CO2 [Moles/Vol] 23 mmol/L Normal 22-29 [facility] Comment on above: Performed By: #### L AB17, [id number] ####Manager Sas: KEMAR ABEBE ([phone])[facility]USA [facility] (SBHLAB)[address] Creatinine [Mass/Vol] 1.35 mg/dL Normal [facility] Comment on above: Performed By: #### L AB17, [id number] ####Manager Sas: KEMAR ABEBE ([phone])[facility]USA [facility] (SBHLAB)[address] [place] [address] [place] GLOMERULAR FILTRATION RATE ML/MIN/1.73 SQ M.PREDICTED 45.9 mL/min/1.73m*2 Low >60.0 [facility] Comment on above: Result Comment: Calc ulation based on the Chronic Kidney Disease Epidemiology Collaboration (CKD-EPI) equation refit without adjustment for race Performed By: #### L AB17, [id number] ####Manager Sas: KEMAR ABEBE ([phone])[facility]USA [facility] (SBHLAB)[address] Glucose [Mass/Vol] 112 mg/dL High 74-100 [facility] Comment on above: Performed By: #### L AB17, [id number] ####Manager Sas: KEMAR ABEBE ([phone])[facility]AMPUSA [facility] (SBHLAB)[address] Potassium [Moles/Vol] 3.3 mmol/L Low 3.5-5.1 [facility] Comment on above: Result Comment: [facility] potassium values may be up to 0.5 mmol/L lower than serum values. Performed By: #### L AB17, MKK411 ####Manager Sas: KEMAR ABEBE ([phone])[facility]USA [facility] (SBHLAB)[address] Protein [Mass/Vol] 6.6 g/dL Normal 6.4-8.3 [facility] Comment on above: Performed By: #### L AB17, IST305 ####Manager Sas: KEMAR ABEBE ([phone])[facility] (SBHLAB)[address] Sodium [Moles/Vol] 135 mmol/L Low 136-145 [facility] Comment on above: Performed By: #### L AB17, [id number] ####Manager Sas: KEMAR ABEBE ([phone])[facility] CAMPUSWarren [place] (SBHLAB)[address] Urea nitrogen [Mass/Vol] 48 mg/dL High 9-23 [facility] Comment on above: Performed By: #### L AB17, VHR307 ####Manager Sas: KEMAR ABEBE ([phone])[facility] [place] (SBHLAB)[address] Comprehensive metabolic 1998 panelon 10-21-2024 Albumin [Mass/Vol] 2.7 g/dL Low 3.5 - 5.0 g/dL [facility] ALP [Catalytic activity/Vol] 135 U/L [facility] ALT [Catalytic activity/Vol] 42 U/L [facility] Anion gap [Moles/Vol] 12 mmol/L 3 - 13 mmol/L [facility] AST [Catalytic activity/Vol] 20 U/L NINF - 34 U/L [facility] Bilirubin [Mass/Vol] 0.3 mg/dL NINF - 1.2 mg/dL [facility] Calcium [Mass/Vol] 8.8 mg/dL 8.4 - 10. 2 mg/dL [facility] Chloride [Moles/Vol] 100 mmol/L 98 - 10 7 mmol/L [facility] CO2 [Moles/Vol] 23 mmol/L 22 - 29 mmol/L [facility] Creatinine [Mass/Vol] 1.35 mg/dL [facility] GFR/1.73 sq M.predicted (S/P/Bld) [Vol rate/Area] 45.9 mL/min Low - PINF [facility] Comment on above: Calculation based on the Chronic Kidney Disease Epidemiology Collaboration (CKD-EPI) equation refit without adjustment for race Glucose [Mass/Vol] 112 mg/dL High 74 - 100 mg/dL [facility] Interpretation and review of laboratory results Abnormal [facility] Potassium [Moles/Vol] 3.3 mmol/L Low 3.5 - 5.1 mmol/L [facility] Comment on above: Plasma potassium helen ues may be up to 0.5 mmol/L lower than serum values. Protein [Mass/Vol] 6.6 g/dL 6.4 - 8.3 g/dL [facility] Sodium [Moles/Vol] 135 mmol/L Low 136 - 145 mmol/L [facility] Urea nitrogen [Mass/Vol] 48 mg/dL High 9 - 23 mg/dL [facility] - Chemistry and C hemistry - challengeon 10-21-2024 Glucose [Mass/Vol] 151 mg/dL High 70 - 100 mg/dL [facility] Glucose [Mass/Vol] 141 mg/dL High 70 - 100 mg/dL [facility] Glucose [Mass/Vol] 161 mg/dL High 70 - 100 mg/dL [facility] Glucose [Mass/Vol] 182 mg/dL High 70 - 100 mg/dL [facility] Glucose [Mass/Vol] 185 mg/dL High 70 - 100 mg/dL [facility] Magnesium [Mass/Vol] 2 mg/dL 1.6 - 2 .6 mg/dL [facility] MAGNESIUMon 10-21-2024 Magnesium [Mass/Vol] 2.0 mg/dL Normal 1.6-2.6 [facility] Comment on above: Result Comment: MARIE Askew COMMENTS:Higher values can be expected in females during menses. Performed By: #### L AB17, [id number] ####Manager Sas: KEMAR ABEBE ([phone])[facility] CAMPUSWarren [place] (SBHLAB)[address] [place] [address] Magnesium [Mass/Vol]on 10-21 Interpretation and review of laboratory results Normal [facility] Higher values can be expected in females during menses. [facility] No Panel Informationon 10-21 Interpretation and review of laboratory results Abnormal [facility] Performed by: [facility], [address] [place] [address] CLIA ID: [id number] [facility] Interpretation and review of laboratory results Abnormal [facility] Performed by: [facility], [address] [place] [address] CLIA ID: [id number] [facility] Interpretation and review of laboratory results Abnormal [facility] Performed by: [facility], [address] [facility] [address] CLIA ID: [id number] [facility] Interpretation and review of laboratory results Abnormal [facility] Performed by: [facility], [address] [place] [address] CLIA ID: [id number] [facility] Interpretation and review of laboratory results Abnormal [facility] Performed by: [facility], [address] [place] [address] CLIA ID: [id number] [facility] Progress Noteon 10-21-2024 Progress Note Normal [facility] Progress Note Normal [facility] [id number] 10-20-2024 [id number] Normal [facility] [id number] Sent updated notes t o return back to [facility] via [facility] per TCC request. Await review and response regarding ability to accept. TCC notified. Normal [facility] Bacteria identified Cx Nom ( U)Ordered By: Sagrario Clark on 10-20-2024 Interpretation and review of laboratory results Normal [facility] C-REACTIVE PROTEINon 024 CRP [Mass/Vol] 261.6 mg/L High <5.0 [facility] Comment on above: Performed By: #### L [id number], LAB17, [id number] ####Manager Sas: KEMAR ABEBE ([phone])[facility] (SBHLAB)[address] [place] [address] CBC W Auto Differential pane l (Bld)on 10-20-2024 Basophils (Bld) [#/Vol] 0 10*3/uL 0.0 - 0.2 10*3/uL [facility] Basophils/100 WBC (Bld) 0.1 % 0.0 - 2.0 % [facility] Eosinophils (Bld) [#/Vol] 0 10*3/uL 0.0 - 0.5 10*3/uL [facility] Eosinophils/100 WBC (Bld) 0.2 % 0.0 - 6.0 % [facility] Erythrocyte distribution width (RBC) [Ratio] 13.9 % 11.5 - 15.0 % [facility] Hematocrit (Bld) [Volume fraction] 33 % Male: 40.0-52.0 ; Female: 35.0-47.0 [facility] Hemoglobin (Bld) [Mass/Vol] 10.5 g/dL Low 11.7 - 18.0 g/dL [facility] [employer] Immature granulocytes (Bld) [#/Vol] 0.2 10*3/uL High NINF - 0.1 10*3/uL [facility] [employer] Immature granulocytes/100 WBC (Bld) 1.3 % 0.0 - 2.0 % [facility] Interpretation and review of laboratory results Abnormal [facility] [employer] Lymphocytes (Bld) [#/Vol] 1.1 10*3/uL 1.0 - 4.3 10*3/uL [facility] [employer] Lymphocytes/100 WBC (Bld) 8 % Low 15.0 - 45.0 % [facility] MCH (RBC) [Entitic mass] 27.3 pg 26.0 - 34.0 pg [facility] [employer] MCHC (RBC) [Mass/Vol] 31.8 % 30.5 - 36.0 % [facility] [employer] MCV (RBC) [Entitic vol] 85.7 fL 77.0 - 99.0 fL [facility] [employer] Monocytes (Bld) [#/Vol] 0.8 10*3/uL 0.0 - 0.9 10*3/uL [facility] Monocytes/100 WBC (Bld) 5.7 % 5.0 - 13.0 % [facility] Neutrophils (Bld) [#/Vol] 11.4 10*3/uL High 1.8 - 7.5 10*3/uL [facility] Neutrophils/100 WBC (Bld) 84.7 % High 38.0 - 82.0 % [facility] Nucleated RBC/100 WBC (Bld) [Ratio] 0 % [facility] [employer] Platelet mean volume (Bld) [Entitic vol] 9.9 fL 9.0 - 12.7 fL [facility] [employer] Platelets (Bld) [#/Vol] 353 10*3/uL 140 - 440 10*3/uL [facility] RBC (Bld) [#/Vol] 3.85 10*6/uL Male: 4.40-5.90; Female: 3.80-5.20 [facility] WBC (Bld) [#/Vol] 13.4 10*3/uL High 3.6 - 10.7 10*3/uL [facility] CBC WITH AUTO DIFFERENTIALon 10-20-2024 Basophils (Bld) [#/Vol] 0.0 10*3/uL Normal 0.0-0.2 [facility] Comment on above: Performed By: #### L [id number] ####Manager Sas: KEMAR LUDWIGSAAD ([phone])[facility] [place] (SBHLAB)[address] Basophils/100 WBC (Bld) 0.1 % Normal 0.0-2.[address] [facility] Comment on above: Performed By: #### L [id number] ####Manager Sas: KEMAR LUDWIGSAAD ([phone])[facility] [place] (SBHLAB)[address] Eosinophils (Bld) [#/Vol] 0.0 10*3/uL Normal 0.0-0.5 [facility] Comment on above: Performed By: #### L [id number] ####Manager Sas: KEMAR LUDWIGSAAD ([phone])[facility] [place] (SBHLAB)[address] Eosinophils/100 WBC (Bld) 0.2 % Normal 0.0-6.0 [facility] Comment on above: Performed By: #### L [id number] ####Manager Sas: KEMAR LUDWIGSAAD ([phone])[facility] [place] (SBHLAB)[address] [place] [address] Erythrocyte distribution width (RBC) [Ratio] 13.9 % Normal 11.5-15.0 [facility] Comment on above: Performed By: #### L [id number] ####Manager Sas: KEMAR LUDWIGSAAD ([phone])[facility]AMPUSA [place] (SBHLAB)[address] [place] [address] Hematocrit (Bld) [Volume fraction] 33.0 % Normal Male: 40.0-52.0 ; Female: 35.0-47.0 [facility] Comment on above: Performed By: #### L [id number] ####Manager Sas: KEMAR ABEBE ([phone])[facility] [place] (SBHLAB)[address] Hemoglobin (Bld) [Mass/Vol] 10.5 g/dL Low 11.7-18.0 [facility] Comment on above: Performed By: #### L [id number] ####Manager Sas: KEMAR ABEBE ([phone])[facility] [place] (SBHLAB)[address] IMMATURE GRANS % 1.3 % Normal 0.0-2.0 [facility] Comment on above: Performed By: #### L [id number] ####Manager Sas: KEMAR ABEBE ([phone])[facility] CAMPUSA [facility] (SBHLAB)[address] IMMATURE GRANS ABSOLUTE 0.2 10*3/uL High <0.1 [facility] Comment on above: Performed By: #### L [id number] ####Manager Sas: KEMAR ABEBE ([phone])[facility]AMPUSA [place] (SBHLAB)[address] Lymphocytes (Bld) [#/Vol] 1.1 10*3/uL Normal 1.0-4.3 [facility] Comment on above: Performed By: #### L [id number] ####Manager Sas: KEMAR ABEBE ([phone])[facility]AMPUSA [facility] (SBHLAB)[address] Lymphocytes/100 WBC (Bld) 8.0 % Low 15.0-45.0 [facility] Comment on above: Performed By: #### L [id number] ####Manager Sas: KEMAR ABEBE ([phone])[facility]AMPUSA [facility] (SBHLAB)[address] MCH (RBC) [Entitic mass] 27.3 pg Normal 26.0-34.0 [facility] Comment on above: Performed By: #### L [id number] ####Manager Sas: KEMAR ABEBE ([phone])[facility] (SBHLAB)[address] MCHC 31.8 % Normal 30.5-36.0 [facility] Comment on above: Performed By: #### L [id number] ####Manager Sas: KEMAR LUDWIGSAAD ([phone])[facility] [place] (SBHLAB)[address] MCV (RBC) [Entitic vol] 85.7 fL Normal 77.0-99.0 [facility] Comment on above: Performed By: #### L [id number] ####Manager Sas: KEMAR LUDWIGSAAD ([phone])[facility] [place] (SBHLAB)[address] Monocytes (Bld) [#/Vol] 0.8 10*3/uL Normal 0.0-0.9 [facility] Comment on above: Performed By: #### L [id number] ####Manager Sas: KEMAR LUDWIGSAAD ([phone])[facility] [place] (SBHLAB)[address] Monocytes/100 WBC (Bld) 5.7 % Normal 5.0-13.0 [facility] Comment on above: Performed By: #### L [id number] ####Manager Sas: KEMAR ABEBE ([phone])[facility] [place] (SBHLAB)[address] NEUTROPHILS ABSOLUTE 11.4 10*3/uL High 1.8-7.5 [facility] Comment on above: Performed By: #### L [id number] ####Manager Sas: KEMAR LUDWIGSAAD ([phone])[facility] [place] (SBHLAB)[address] Neutrophils/100 WBC (Bld) 84.7 % High 38.0-82.0 [facility] Comment on above: Performed By: #### L [id number] ####Manager Sas: KEMAR ABEBE ([phone])[facility] [place] (SBHLAB)[address] NRBC 0.0 /100 WBCs Normal 0.0-2.0 [facility] Comment on above: Performed By: #### L [id number] ####Manager Sas: KEMAR ABEBE ([phone])[facility] CAMPUSWarren [place] (SBHLAB)[address] Platelet mean volume (Bld) [Entitic vol] 9.9 fL Normal 9.0-12.7 [facility] Comment on above: Performed By: #### L [id number] ####Manager Sas: KEMAR ABEBE ([phone])[facility] CAMPUSWarren [facility] (SBHLAB)[address] Platelets (Bld) [#/Vol] 353 10*3/uL Normal 140-440 [facility] Comment on above: Performed By: #### L [id number] ####Manager Sas: KEMAR ABEBE ([phone])[facility] (SBAB)[address] [place] [address] RBC (Bld) [#/Vol] 3.85 10*6/uL Normal Male: 4.40-5.90; Female: 3.80-5.20 [facility] Comment on above: Performed By: #### L [id number] ####Manager Sas: KEMAR ABEBE ([phone])[facility] (SBAB)[address] [place] [address] WBC (Bld) [#/Vol] 13.4 10*3/uL High 3.6-10.7 [facility] Comment on above: Performed By: #### L [id number] ####Manager Sas: KEMAR ABEBE ([phone])[facility] (SBAB)[address] COMPREHENSIVE METABOLIC PANE Gigi 10-20-2024 Albumin [Mass/Vol] 2.8 g/dL Low 3.5-5.0 [facility] Comment on above: Performed By: #### L [id number], LAB17, QGJ107 ####Manager Sas: KEMAR ABEBE ([phone])[facility]AMP[facility] [place] (SBHLAB)[address] ALP [Catalytic activity/Vol] 155 U/L Normal [facility] Comment on above: Performed By: #### L [id number], LAB17, JYB804 ####Manager Sas: KEMAR ABEBE ([phone])[facility]AMPUSA [facility] (SBHLAB)[address] ALT [Catalytic activity/Vol] 53 U/L Normal [facility] Comment on above: Performed By: #### L [id number], LAB17, [id number] ####Manager Sas: KEMAR ABEBE ([phone])[facility]AMPUSA [place] (SBHLAB)[address] Anion gap [Moles/Vol] 14 mmol/L High 3-13 [facility] Comment on above: Performed By: #### Elijah [address], LAB17, [id number] ####Manager Sas: KEMAR ABEBE ([phone])[facility]AMPUSA [facility] (SBHLAB)[address] AST [Catalytic activity/Vol] 20 U/L Normal <34 [facility] Comment on above: Performed By: #### Elijah [id number], LAB17, [id number] ####Manager Sas: KEMAR ABEBE ([phone])[facility] (SBHL[facility])[address] Bilirubin [Mass/Vol] 0.5 mg/dL Normal <1.2 [facility] Comment on above: Performed By: #### L [id number], LAB17, [id number] ####Manager Sas: KEMAR ABEBE ([phone])[facility]AMPUSA [facility] (SBHLAB)[address] Calcium [Mass/Vol] 9.0 mg/dL Normal 8.4-10.2 [facility] Comment on above: Performed By: #### L [id number], LAB17, [id number] ####Manager Sas: KEMAR ABEBE ([phone])[facility] [place] (SBHLAB)[address] [place] [address] [place] Chloride [Moles/Vol] 98 mmol/L Normal 98-107 [facility] Comment on above: Performed By: #### Elijah [id number], LAB17, JMB602 ####Manager Sas: KEMAR ABEBE ([phone])[facility]AMPUSA [place] (SBHLAB)[address] [place] [address] [place] CO2 [Moles/Vol] 21 mmol/L Low 22-29 [facility] Comment on above: Performed By: #### Elijah RODRIGUEZ, LAB17, ZQT680 ####Manager Sas: KEMAR ABEBE ([phone])[facility] CAMPUSA [facility] (SBHLAB)[address] Creatinine [Mass/Vol] 1.50 mg/dL Normal [facility] Comment on above: Performed By: #### Elijah RODRIGUEZ, LAB17, XTS853 ####Manager Sas: KEMAR ABEBE ([phone])[facility] CAMPUSA [facility] (SBHLAB)[address] GLOMERULAR FILTRATION RATE ML/MIN/1.73 SQ M.PREDICTED 40.5 mL/min/1.73m*2 Low >60.0 [facility] Comment on above: Result Comment: Calc ulation based on the Chronic Kidney Disease Epidemiology Collaboration (CKD-EPI) equation refit without adjustment for race Performed By: #### Elijah RODRIGUEZ, LAB17, [id number] ####Manager Sas: KEMAR ABEBE ([phone])[facility]AMPUSA [place] (SBHLAB)[address] [place] [address] [place] Glucose [Mass/Vol] 461 mg/dL Critically high 74-100 [facility] Comment on above: Performed By: #### L [id number], LAB17, XFW479 ####Manager Sas: KEMAR ABEBE ([phone])[facility] CAMPUSA [facility] (SBHLAB)[address] [place] [address] [place] Potassium [Moles/Vol] 3.6 mmol/L Normal 3.5-5.1 [facility] Comment on above: Result Comment: [facility] potassium values may be up to 0.5 mmol/L lower than serum values. Performed By: #### L [id number], LAB17, CBE536 ####Manager Sas: KEMAR ABEBE ([phone])[facility] (SBHLAB)[address] Protein [Mass/Vol] 6.8 g/dL Normal 6.4-8.3 [facility] Comment on above: Performed By: #### L [id number], LAB17, JBN692 ####Manager Sas: KEMAR ABEBE ([phone])[facility] (SBHLAB)[address] Sodium [Moles/Vol] 133 mmol/L Low 136-145 [facility] Comment on above: Performed By: #### L [id number], LAB17, CXS628 ####Manager Sas: KEMAR ABEBE ([phone])[facility] (SBHLAB)[address] Urea nitrogen [Mass/Vol] 48 mg/dL High 9-23 [facility] Comment on above: Performed By: #### L [id number], LAB17, NHS299 ####Manager Sas: KEMAR ABEBE ([phone])[facility] (SBHLAB)[address] CRP [Mass/Vol]on 10-20-2024 Interpretation and review of laboratory results Abnormal [facility] Comprehensive metabolic 1998 panelon 10-20-2024 Albumin [Mass/Vol] 2.8 g/dL Low 3.5 - 5.0 g/dL [facility] ALP [Catalytic activity/Vol] 155 U/L [facility] ALT [Catalytic activity/Vol] 53 U/L [facility] Anion gap [Moles/Vol] 14 mmol/L High 3 - 13 mmol/L [facility] AST [Catalytic activity/Vol] 20 U/L NINF - 34 U/L [facility] Bilirubin [Mass/Vol] 0.5 mg/dL NINF - 1.2 mg/dL [facility] Calcium [Mass/Vol] 9 mg/dL 8.4 - 10. 2 mg/dL [facility] Chloride [Moles/Vol] 98 mmol/L 98 - 10 7 mmol/L [facility] CO2 [Moles/Vol] 21 mmol/L Low 22 - 29 mmol/L [facility] Creatinine [Mass/Vol] 1.5 mg/dL [facility] GFR/1.73 sq M.predicted (S/P/Bld) [Vol rate/Area] 40.5 mL/min Low - PINF [facility] Comment on above: Calculation based on the Chronic Kidney Disease Epidemiology Collaboration (CKD-EPI) equation refit without adjustment for race Glucose [Mass/Vol] 461 mg/dL Critically high 74 - 1 00 mg/dL [facility] Interpretation and review of laboratory results Abnormal [facility] Potassium [Moles/Vol] 3.6 mmol/L 3.5 - 5.1 mmol/L [facility] Comment on above: Plasma potassium helen ues may be up to 0.5 mmol/L lower than serum values. Protein [Mass/Vol] 6.8 g/dL 6.4 - 8.3 g/dL [facility] Sodium [Moles/Vol] 133 mmol/L Low 136 - 145 mmol/L [facility] Urea nitrogen [Mass/Vol] 48 mg/dL High 9 - 23 mg/dL [facility] Consulton 10-20-2024 Consult Normal [facility] IRON AND TIBCon 10-20-2024 IRON BINDING CAPACITY 187 ug/dL Low 250-450 [facility] Comment on above: Performed By: #### L [id number] ####Manager Sas: KEMAR ABEBE ([phone])[facility] (SBHLAB)[address] IRON SATURATION 25.7 % Normal 20.0-50.0 [facility] Comment on above: Performed By: #### L AB829 ####Manager Sas: KEMAR ABEBE ([phone])[facility] (SBHLAB)[address] IRON, TOTAL 48 ug/dL Normal [facility] Comment on above: Performed By: #### L [id number] ####Manager Sas: KEMAR ABEBE ([phone])[facility] (SBHLAB)[address] Iron and Iron binding capaci ty panelon 10-20-2024 Interpretation and review of laboratory results Abnormal [facility] Iron [Mass/Vol] 48 ug/dL [facility] Iron binding capacity [Mass/Vol] 187 ug/dL Low 250 - 450 ug/dL [facility] Iron saturation [Mass fraction] 25.7 % 20.0 - 50.0 % [facility] - Chemistry and C hemistry - challengeon 10-20-2024 Glucose [Mass/Vol] 260 mg/dL High 70 - 100 mg/dL [facility] Glucose [Mass/Vol] 373 mg/dL High 70 - 100 mg/dL [facility] Glucose [Mass/Vol] 445 mg/dL High 70 - 100 mg/dL [facility] Glucose [Mass/Vol] 445 mg/dL High 70 - 100 mg/dL [facility] Procalcitonin [Mass/Vol] 2 ng/mL [facility].07 [facility]/mL [facility] CRP [Mass/Vol] 261.6 mg/L High NINF - 5.0 mg/L [facility] Laboratory - Microbiology an d Antimicrobial susceptibilityOrdered By: Sagrario Clark on 10-20-2024 Bacteria identified Cx Nom (U) Insignificant growth based on current clinical guidelines [facility] No Panel Informationon 10-20 Interpretation and review of laboratory results Abnormal [facility] Performed by: [facility], [address] [place] [id number] CLIA ID: [id number] [facility] Interpretation and review of laboratory results Abnormal [facility] Performed by: [facility], [address] [place] [address] CLIA ID: [id number] [facility] Interpretation and review of laboratory results Abnormal [facility] Performed by: [facility], [address] [facility] [address] CLIA ID: [id number] [facility] Interpretation and review of laboratory results Abnormal [facility] Performed by: [facility], [address] [place] [address] CLIA ID: [id number] [facility] Nursing Noteon 10-20-2024 Nursing Note Report called to [facility] for transfer. Normal [facility] Nursing Note Notified Lisa guerrero APRN and Dr. Thomas regarding patients BS. New orders placed. Normal [facility] PROCALCITONIN TESTon 024 PROCALCITONIN 2.00 ng/mL High <0.07 [facility] Comment on above: Result Comment: MARIE R COMMENTS:PCT <0.50 = Low risk of severe sepsis and/or septic shock.PCT >2.00 = High risk of severe sepsis and/or septic shock. Performed By: #### L [id number], [id number], [id number] ####Manager Sas: KEMAR ABEBE ([phone])[facility])[address] [place] [address] Procalcitonin [Mass/Vol]on 12-21-2023 Interpretation and review of laboratory results Abnormal [facility] PCT <0.50 = Low risk of severe sepsis and/or septic shock. PCT >2.00 = High risk of severe sepsis and/or septic shock. [facility] Progress Noteon 10-20-2024 Progress Note Normal [facility] Progress Note Normal [facility] Progress Note Normal [facility] Progress Note Normal [facility] Progress Note Nutrition rescreen completed. Patient is NPO/Clear liquid >3 days. Refer to Dietitian. Normal [facility] 30on 10-19-2024 30 Normal [facility] [id number] 10-19-2024 [id number] Normal [facility] 36on 10-19-2024 36 Needs to be seen for follow up with any provider, will need ECF to arrange transportation so that patient can be seen in office ans no longer available to manage over the phone Normal [facility] CBC W Auto Differential pane l (Bld)on 10-19-2024 Erythrocyte distribution width (RBC) [Ratio] 14.5 % 11.5 - 15.0 % [facility] Hematocrit (Bld) [Volume fraction] 34.4 % Male: 40.0-52.0 ; Female: 35.0-47.0 [facility] Hemoglobin (Bld) [Mass/Vol] 10.9 g/dL Low 11.7 - 18.0 g/dL [facility] MCH (RBC) [Entitic mass] 27.7 pg 26.0 - 34.[address] [facility] MCHC (RBC) [Mass/Vol] 31.7 % 30.5 - 36.0 % [facility] MCV (RBC) [Entitic vol] 87.3 fL 77.0 - 99.[address] [facility] Platelet mean volume (Bld) [Entitic vol] 9.6 fL 9.0 - 12.[address] [facility] Platelets (Bld) [#/Vol] 339 10*3/uL 140 - 440 10*3/uL [facility] RBC (Bld) [#/Vol] 3.94 10*6/uL Male: 4.40-5.90; Female: 3.80-5.20 [facility] WBC (Bld) [#/Vol] 21.8 10*3/uL High 3.6 - 10.7 10*3/uL [facility] CBC WITH AUTO DIFFERENTIALon 10-19-2024 Erythrocyte distribution width (RBC) [Ratio] 14.5 % Normal 11.5-15.0 [facility] Comment on above: Performed By: #### Elijah [id number], [id number] ####Manager Sas: KEMAR ABEBE ([phone])[facility] ([facility])[address] [place] [address] Hematocrit (Bld) [Volume fraction] 34.4 % Normal Male: 40.0-52.0 ; Female: 35.0-47.0 [facility] Comment on above: Performed By: #### L [id number], [id number] ####Manager Sas: KEMAR ABEBE ([phone])[facility] ([facility])[address] Hemoglobin (Bld) [Mass/Vol] 10.9 g/dL Low 11.7-18.0 [facility] Comment on above: Performed By: #### L [id number], [id number] ####Manager Sas: KEMAR ABEBE ([phone])[facility]US[facility] WADEKATIA ([facility])[address] MCH (RBC) [Entitic mass] 27.7 pg Normal 26.0-34.0 [facility] Comment on above: Performed By: #### L [id number], [id number] ####Manager Sas: KEMAR ABEBE ([phone])[facility] ([facility])[address] MCHC 31.7 % Normal 30.5-36.0 [facility] Comment on above: Performed By: #### L [id number], [id number] ####Manager Sas: KEMAR ABEBE ([id number])[facility]AMPUSWarren WADEMARYN ([facility])[address] MCV (RBC) [Entitic vol] 87.3 fL Normal 77.0-99.0 [facility] Comment on above: Performed By: #### L [id number], [id number] ####Manager Sas: KEMAR ABEBE ([phone])[facility] ([facility])[address] Platelet mean volume (Bld) [Entitic vol] 9.6 fL Normal 9.0-12.7 [facility] Comment on above: Performed By: #### L [id number], [id number] ####Manager Sas: KEMAR ABEBE ([phone])[facility] ([facility])[address] Platelets (Bld) [#/Vol] 339 10*3/uL Normal 140-440 [facility] Comment on above: Performed By: #### L [id number], [id number] ####Manager Sas: KEMAR ABEBE ([phone])[facility] ([facility])[address] RBC (Bld) [#/Vol] 3.94 10*6/uL Normal Male: 4.40-5.90; Female: 3.80-5.20 [facility] Comment on above: Performed By: #### L [id number], [id number] ####Manager Sas: KEMAR ABEBE ([phone])[facility]ITAL[facility] ([facility])[address] WBC (Bld) [#/Vol] 21.8 10*3/uL High 3.6-10.7 [facility] Comment on above: Performed By: #### L [id number], [id number] ####Manager Sas: KEMAR ABEBE ([phone])[facility] ([facility])[address] [place] [address] COMPREHENSIVE METABOLIC PANE Gigi 10-19-2024 Albumin [Mass/Vol] 2.8 g/dL Low 3.5-5.0 [facility] Comment on above: Performed By: #### L [id number] ####Manager Sas: KEMAR ABEBE ([phone])[facility] ([facility])[address] ALP [Catalytic activity/Vol] 151 U/L Normal [facility] Comment on above: Performed By: #### L [id number] ####Manager Sas: KEMAR ABEBE ([phone])[facility] ([facility])[address] ALT [Catalytic activity/Vol] 83 U/L Normal [facility] Comment on above: Performed By: #### L [id number] ####Manager Sas: KEMAR ABEBE ([phone])[facility] ([facility])[address] Anion gap [Moles/Vol] 11 mmol/L Normal 3-13 [facility] Comment on above: Performed By: #### L AB17 ####Manager Sas: KEMAR ABEBE ([phone])[facility] ([facility])[address] [place] [address] [place] AST [Catalytic activity/Vol] 50 U/L High <34 [facility] Comment on above: Performed By: #### L AB17 ####Manager Sas: KEMAR ABEBE ([phone])[facility]USA [place] ([facility])[address] Bilirubin [Mass/Vol] 0.8 mg/dL Normal <1.2 [facility] Comment on above: Performed By: #### L AB17 ####Manager Sas: KEMAR ABEBE ([phone])[facility]AMPUSA [place] ([facility])[address] Calcium [Mass/Vol] 8.9 mg/dL Normal 8.4-10.2 [facility] Comment on above: Performed By: #### L AB17 ####Manager Sas: KEMAR ABEBE ([phone])[facility]AMPUSA [place] ([facility])[address] [place] [address] [place] Chloride [Moles/Vol] 102 mmol/L Normal 98-107 [facility] Comment on above: Performed By: #### L AB17 ####Manager Sas: KEMAR ABEBE ([phone])[facility]AMPUSA [place] ([facility])[address] [place] [address] [place] CO2 [Moles/Vol] 22 mmol/L Normal 22-29 [facility] Comment on above: Performed By: #### L AB17 ####Manager Sas: KEMAR ABEBE ([phone])[facility]AMPUSA [place] ([facility])[address] [place] [address] [place] Creatinine [Mass/Vol] 1.15 mg/dL Normal [facility] Comment on above: Performed By: #### L AB17 ####Manager Sas: KEMAR ABEBE ([phone])[facility]AMPUSA [place] ([facility])[address] [place] [address] [place] GLOMERULAR FILTRATION RATE ML/MIN/1.73 SQ M.PREDICTED 55.7 mL/min/1.73m*2 Low >60.0 [facility] Comment on above: Result Comment: Calc ulation based on the Chronic Kidney Disease Epidemiology Collaboration (CKD-EPI) equation refit without adjustment for race Performed By: #### L [id number] ####Manager Sas: KEMAR ABEBE ([phone])[facility]AMPUSA [place] ([facility])[address] Glucose [Mass/Vol] 223 mg/dL High 74-100 [facility] Comment on above: Performed By: #### L AB17 ####Manager Sas: KEMAR ABEBE ([phone])[facility] [place] ([facility])[address] Potassium [Moles/Vol] 3.6 mmol/L Normal 3.5-5.1 [facility] Comment on above: Result Comment: [facility] potassium values may be up to 0.5 mmol/L lower than serum values. Performed By: #### L AB17 ####Manager Sas: KEMAR ABEBE ([phone])[facility]USA [place] ([facility])[address] Protein [Mass/Vol] 6.5 g/dL Normal 6.4-8.3 [facility] Comment on above: Performed By: #### L AB17 ####Manager Sas: KEMAR ABEBE ([phone])[facility]AMPUSA [place] ([facility])[address] [place] [address] [place] Sodium [Moles/Vol] 135 mmol/L Low 136-145 [facility] Comment on above: Performed By: #### L AB17 ####Manager Sas: KEMAR ABEBE ([phone])[facility]AMPUSA [place] ([facility])[address] [place] [address] [place] Urea nitrogen [Mass/Vol] 32 mg/dL High 9-23 [facility] Comment on above: Performed By: #### L AB17 ####Manager Sas: KEMAR ABEBE ([phone])[facility]AMPUSA [place] ([facility])[address] [place] [address] CULTURE ANAEROBICon 10-19-20 24 CULTURE ANAEROBIC Normal [facility] Comment on above: Performed By: #### L [id number] ####Manager Sas: MARCELA LUCERO ([phone])[facility])[address] [place] [address] CULTURE ANAEROBIC Normal [facility] Comment on above: Order Comment: Colle cted during drain placement Performed By: #### L [id number] ####Manager Sas: MARCELA LUCERO ([phone])[facility] ([facility])[address] [place] [address] CULTURE, AEROBIC BACTERIA WI TH GRAM STAINon 10-19-2024 CULTURE, AEROBIC BACTERIA WITH GRAM STAIN Normal [facility] Comment on above: Performed By: #### L [id number] ####Manager Sas: MARCELA LUCERO ([phone])[facility] ([facility])[address] [place] [address] CULTURE, AEROBIC BACTERIA WITH GRAM STAIN Normal [facility] Comment on above: Order Comment: Colle cted during drain placement Performed By: #### L [id number] ####Manager Sas: MARCELA LUCERO ([phone])[facility])[address] [place] [address] Comprehensive metabolic 1998 panelon 10-19-2024 Albumin [Mass/Vol] 2.8 g/dL Low 3.5 - 5.0 g/dL [facility] ALP [Catalytic activity/Vol] 151 U/L [facility] ALT [Catalytic activity/Vol] 83 U/L [facility] Anion gap [Moles/Vol] 11 mmol/L 3 - 13 mmol/L [facility] AST [Catalytic activity/Vol] 50 U/L High NINF - 34 U/L [facility] Bilirubin [Mass/Vol] 0.8 mg/dL NINF - 1.2 mg/dL [facility] Calcium [Mass/Vol] 8.9 mg/dL 8.4 - 10. 2 mg/dL [facility] Chloride [Moles/Vol] 102 mmol/L 98 - 10 7 mmol/L [facility] CO2 [Moles/Vol] 22 mmol/L 22 - 29 mmol/L [facility] Creatinine [Mass/Vol] 1.15 mg/dL [facility] GFR/1.73 sq M.predicted (S/P/Bld) [Vol rate/Area] 55.7 mL/min Low - PINF [facility] Comment on above: Calculation based on the Chronic Kidney Disease Epidemiology Collaboration (CKD-EPI) equation refit without adjustment for race Glucose [Mass/Vol] 223 mg/dL High 74 - 100 mg/dL [facility] Interpretation and review of laboratory results Abnormal [facility] Potassium [Moles/Vol] 3.6 mmol/L 3.5 - 5.1 mmol/L [facility] Comment on above: Plasma potassium helen ues may be up to 0.5 mmol/L lower than serum values. Protein [Mass/Vol] 6.5 g/dL 6.4 - 8.3 g/dL [facility] Sodium [Moles/Vol] 135 mmol/L Low 136 - 145 mmol/L [facility] Urea nitrogen [Mass/Vol] 32 mg/dL High 9 - 23 mg/dL [facility] Consulton 10-19-2024 Consult Normal [facility] Consult Normal [facility] Consult Normal [facility] Consult Normal [facility] HEMOGLOBIN A1Con 10-19-2024 Glucose [Mass/Vol] 151 mg/dL Normal [facility] Comment on above: Result Comment: MARIE Askew COMMENTS:HbA1c values of 5.7-6.4 percent indicate an increased risk for developing diabetes mellitus. HbA1c values greater than or equal to 6.5 percent are diagnostic of diabetes mellitus. For diagnosis of diabetes in individuals without unequivocal hyperglycemia, results should be confirmed by repeat testing. Performed By: #### L AB90 ####Manager Sas: KEMAR ABEBE ([phone])[facility] ([facility])[address] [place] [address] HEMOGLOBIN A1C 6.9 %HbA1C High <5.7 [facility] Comment on above: Result Comment: Norm al less than 5.7%Prediabetes 5.7% to 6.4%Diabetes 6.5% or higher--HgbA1C levels may not be accurate in patients who have renal disease, received recent blood transfusions, are anemic, or who have dyshemoglobinemia. Performed By: #### L AB90 ####Manager Sas: KEMAR ABEBE ([phone])[facility] [place] ([facility])[address] [place] [address] Laboratory - Chemistry and C hemistry - challengeon 10-19-2024 Glucose [Mass/Vol] 396 mg/dL High 70 - 100 mg/dL [email or web address] Glucose [Mass/Vol] 374 mg/dL High 70 - 100 mg/dL [facility] Average glucose Estimated from glycated hemoglobin (Bld) [Mass/Vol] 151 mg/dL [email or web address] Glucose [Mass/Vol] 336 mg/dL High 70 - 100 mg/dL [facility] [email or web address] Glucose [Mass/Vol] 299 mg/dL High 70 - 100 mg/dL [facility] Glucose [Mass/Vol] 207 mg/dL High 70 - 100 mg/dL [facility] Laboratory - Coagulationon 1 12-20-2023 PT Coag (Bld) [Time] 14 s High 9.0 - [address] [facility] Laboratory - Hematology and Cell countson 10-19-2024 HbA1c (Bld) [Mass fraction] 6.9 % High NINF [facility] Comment on above: Normal less than 5.7 % Prediabetes 5.7% to 6.4% Diabetes 6.5% or higher --HgbA1C levels may not be accurate in patients who have renal disease, received recent blood transfusions, are anemic, or who have dyshemoglobinemia. Lymphocytes (Bld) [#/Vol] 2.2 10*3/uL 1.0 - 4.3 10*3/uL [facility] [email or web address] Lymphocytes/100 WBC (Bld) 10 % Low 15 - 45 % [facility] Monocytes (Bld) [#/Vol] 0.2 10*3/uL 0.0 - 0.9 10*3/uL [facility] [email or web address] Monocytes/100 WBC (Bld) 1 % Low 5 - 13 % [facility] Neutrophils (Bld) [#/Vol] 19.4 10*3/uL High 1.8 - 7.5 10*3/uL [facility] [email or web address] RBC morphology finding Nom (Bld) Normal [facility] Segmented neutrophils/100 WBC (Bld) 89 % High 38 - 82 % [facility] [email or web address] Lower GI hemoglobin spec 1 I A Ql (Stl)Ordered By: Debbie Kearns on 10-19-2024 Fecal occult blood Positive Abnormal Negative [facility] Interpretation and review of laboratory results Abnormal [facility] Methodology: Immunoassay [facility] MANUAL DIFFERENTIAL (CELLAVI DORIAN)on 10-19-2024 BAND NEUTROPHILS TOTAL PER COUNTED LEUKOCYTES BY MANUAL COUNT Normal [facility] Comment on above: Performed By: #### L [id number], [id number] ####Manager Sas: KEMAR ABEBE ([phone])[facility] [place] ([facility])[address] [place] [address] [place] BASOPHILS TOTAL PER COUNTED LEUKOCYTES BY MANUAL COUNT Normal [facility] Comment on above: Performed By: #### L [id number], [id number] ####Manager Sas: KEMAR ABEBE ([phone])[facility] [place] ([facility])[address] BLASTS TOTAL PER COUNTED LEUKOCYTES BY MANUAL COUNT Normal [facility] Comment on above: Performed By: #### L [id number], [id number] ####Manager Sas: KEMAR ABEBE ([phone])[facility] [place] ([facility])[address] [place] [address] [place] EOSINOPHILS TOTAL PER COUNTED LEUKOCYTES BY MANUAL COUNT Normal [facility] Comment on above: Performed By: #### L [id number], [id number] ####Manager Sas: KEMAR ABEBE ([phone])[facility] [place] ([facility])[address] [place] [address] [place] LYMPHOCYTES (10*3/UL) IN BLOOD-CELLAVISION 2.2 10*3/uL Normal 1.0-4.3 [facility] Comment on above: Performed By: #### L [id number], [id number] ####Manager Sas: KEMAR ABEBE ([phone])[facility] [place] ([facility])[address] [place] [address] [place] LYMPHOCYTES TOTAL PER COUNTED LEUKOCYTES BY MANUAL COUNT 10 Normal [facility] Comment on above: Performed By: #### L [id number], [id number] ####Manager Sas: KEMAR BANUELOSCER ([phone])[facility] ([facility])[address] [place] [address] [place] LYMPHOCYTES/100 LEUKOCYTES IN BLOOD-CELLAVISION 10 % Low 15-45 [facility] Comment on above: Performed By: #### L [id number], [id number] ####Manager Sas: KEMAR BANUELOSCER ([phone])[facility] ([facility])[address] [place] [address] [place] METAMYELOCYTES TOTAL PER COUNTED LEUKOCYTES BY MANUAL COUNT [facility] Comment on above: Performed By: #### L [id number], [id number] ####Manager Sas: KEMAR LUDWIGSAAD ([phone])[facility] [place] ([facility])[address] [place] [address] [place] MONOCYTES (10*3/UL) IN BLOOD-CELLAVISION 0.2 10*3/uL Normal 0.0-0.9 [facility] Comment on above: Performed By: #### L [id number], [id number] ####Manager Sas: KEMAR BANUELOSCER ([id number])[facility] [place] ([facility])[address] [place] [address] [place] MONOCYTES TOTAL PER COUNTED LEUKOCYTES BY MANUAL COUNT 1 Normal [facility] Comment on above: Performed By: #### L [id number], [id number] ####Manager Sas: KEMAR BANUELOSCER ([phone])[facility] ([facility])[address] [place] [address] [place] MONOCYTES/100 LEUKOCYTES IN BLOOD-SOY 1 % Low 5-13 [facility] Comment on above: Performed By: #### L [id number], [id number] ####Manager Sas: KEMAR BANUELOSCER ([phone])[facility] [place] ([facility])[address] [place] [address] [place] MYELOCYTES COUNTED BY MANUAL COUNT Normal [facility] Comment on above: Performed By: #### L [id number], [id number] ####Manager Sas: KEMAR ABEBE ([phone])[facility] ([facility])[address] [place] [address] [place] NEUTROPHILS TOTAL PER COUNTED LEUKOCYTES BY MANUAL COUNT 89 Normal [facility] Comment on above: Performed By: #### L [id number], [id number] ####Manager Sas: KEMAR ABEBE ([phone])[facility] ([facility])[address] [place] [address] [place] PROMYELOCYTES TOTAL PER COUNTED LEUKOCYTES BY MANUAL COUNT [facility] Comment on above: Performed By: #### L [id number], [id number] ####Manager Sas: KEMAR ABEBE ([phone])[facility] ([facility])[address] [place] [address] [place] RBC MORPHOLOGY IN BLOOD Normal Normal [facility] Comment on above: Performed By: #### L [id number], [id number] ####Manager Sas: KEMAR ABEBE ([phone])[facility] ([facility])[address] [place] [address] [place] SEGMENTED NEUTROPHILS (10*3/UL) IN BLOOD-CELLAVISION 19.4 10*3/uL High 1.8-7.5 [facility] Comment on above: Performed By: #### L [id number], [id number] ####Manager Sas: KEMAR ABEBE ([phone])[facility] [place] ([facility])[address] [place] [address] [place] SEGMENTED NEUTROPHILS/100 LEUKOCYTES-CE 89 % High 38-82 [facility] Comment on above: Performed By: #### L [id number], [id number] ####Manager Sas: KEMAR ABEBE ([id number])[facility] ([facility])[address] [place] [address] [place] UNCLASSIFIED CELLS TOTAL PER COUNTED LEUKOCYTES BY MANUAL COUNT [facility] Comment on above: Performed By: #### L [id number], [id number] ####Manager Sas: KEMAR ABEBE ([phone])[facility]USA [place] ([facility])[address] [place] [address] VARIANT LYMPHOCYTES TOTAL PER COUNTED LEUKOCYTES BY MANUAL COUNT Normal [facility] Comment on above: Performed By: #### L [id number], [id number] ####Manager Sas: KEMAR ABEBE ([phone])[facility] ([facility])[address] [place] [address] No Panel Informationon 10-19 Interpretation and review of laboratory results Abnormal [facility] Performed by: [facility] [employer] [facility], [address] [place] [address] CLIA ID: [id number] [facility] Interpretation and review of laboratory results Abnormal [facility] Performed by: [facility], [address] [place] [address] CLIA ID: [id number] [facility] Interpretation and review of laboratory results Abnormal [facility] HbA1c values of 5.7- 6.4 percent indicate an increased risk for developing diabetes mellitus. HbA1c values greater than or equal to 6.5 percent are diagnostic of diabetes mellitus. For diagnosis of diabetes in individuals without unequivocal hyperglycemia, results should be confirmed by repeat testing. [facility] Interpretation and review of laboratory results Abnormal [facility] Performed by: [facility], [address] [place] [address] CLIA ID: [id number] [facility] Interpretation and review of laboratory results Abnormal [facility] Performed by: [facility], [address] [place] [address] CLIA ID: [id number] [facility] Atypical Lymphocytes Manual [facility] Bands Manual [facility] Basophils Manual [facility] Blasts Manual [facility] Eosinophils Manual [facility] Interpretation and review of laboratory results Abnormal [facility] Lymphocytes Manual 10 [facility] Metamyelocytes Manual [facility] Monocytes Manual 1 [facility] Myelocytes Manual [facility] Neutrophils Manual 89 [facility] Promyelocytes Manual [facility] Unclassified Cells, Manual [facility] Interpretation and review of laboratory results Abnormal [facility] Performed by: [facility] [employer] [facility], [address] [place] [address] CLIA ID: [id number] [facility] [email or web address] OCCULT BLOOD, STOOLon 2023 OCCULT BLOOD, STOOL FECAL OCCULT, STOOL (A) Reference Positive Negative ORDER COMMENTS: (A) Methodology: Immunoassay Normal [facility] Comment on above: Performed By: #### L [id number] ####Manager Sas: KEMAR ABEBE ([phone])[facility]US[facility] KASPERJermaine ([facility])[address] [place] [address] PROTHROMBIN TIMEon INR Coag (PPP) [Relative time] 1.3 {INR} High 0.9-1.1 [facility] Comment on above: Result Comment: Ubaldo [...] to prevent Myocardial Infarction Performed By: #### Elijah [id number] ####Manager Sas: KEMAR ABEBE ([phone])[facility] CAMPUSWarren WADEKATIA ([facility])[address] [place] [address] PT Coag (PPP) [Time] 14.0 s High 9.0-12.0 [facility] Comment on above: Performed By: #### L [id number] ####Manager Sas: KEMAR ABEBE ([phone])[facility] CAMPUSWarren WADEKATIA ([facility])[address] [place] [address] PT Coag (Bld) [Time]on 10-19 INR Coag (PPP) [Relative time] 1.3 {INR} High 0.9 - 1.1 [facility] Comment on above: Recommended Anticoag ulant [...] and review of laboratory results Abnormal [facility] Progress Noteon 10-19-2024 Progress Note Normal [facility] Progress Note Normal [facility] US GUIDED PERCUTANEOUS PERIT HARRY OR RETROPERITONEAL FLUID COLLECTION DRAINAGEon 10-19-2024 US GUIDED PERCUTANEOUS PERITONEAL OR RETROPERITONEAL FLUID COLLECTION DRAINAGE Normal [facility] US Guidance for biopsy of Un specified body regionon 10-19-2024 Successful placement of a drainage catheter into the gallbladder using ultrasound guidance. Report Dictated on Electronically Signed By: Alfredito Baumann MD Electronically Signed Date/Time: 10/19/2024 2:22 PM [facility] Patient Name: WILL ALVARADO : 1965 Exam [...] advanced. Subcutaneous tract was dilated. An 8 Bahraini drainage catheter advanced over the wire. The catheter was attached to a bag. A dressing was applied. [facility] Alfredito Baumann MD - 10/19/2024 Patient Name: [...] advanced. Subcutaneous tract was dilated. An 8 Bahraini drainage catheter advanced over the wire. The catheter was attached to a bag. A dressing was applied. IMPRESSION: Successful placement of a drainage catheter into the gallbladder using ultrasound guidance. Report Dictated on Electronically Signed By: Alfredito Baumann MD Electronically Signed Date/Time: 10/19/2024 2:[address] [facility] Radiology Study observation (narrative) [facility] US Guidance for biopsy of Un specified body regionOrdered By: Alfredito Baumann on 10-19-2024 [facility] Work Phone: Urinalysis complete panel (U )Ordered By: Jyoti Cartwright on 10-19-2024 Amorphous Crystals, Urine Few Abnormal Negative /HPF [facility] Bacteria LM.HPF (Urine sed) [#/Area] Few Abnormal Negative /HPF [facility] Bilirubin Ql (U) Negative Negative mg/dL [facility] Clarity (U) Turbid Abnormal Clear [facility] Color (U) Yellow Lt. Yellow [facility] Epithelial cells.squamous LM.HPF (Urine sed) [#/Area] 0-2 [facility] Glucose Ql (U) Normal Normal (<70) mg/dL [facility] Granular casts LM.HPF (Urine sed) [#/Area] 3-5 Abnormal Negative /LPF [facility] Hemoglobin Ql (U) 0.2 mg/dL Abnormal Negative [facility] Hyaline casts Auto (Urine sed) [#/Area] 3-5 Abnormal Negative /LPF [facility] Interpretation and review of laboratory results Abnormal [facility] Ketones (U) [Mass/Vol] Negative Negat bernard mg/dL [facility] Leukocyte clumps LM.HPF (Urine sed) [#/Area] Rare Abnormal Negative /HPF [facility] Leukocyte esterase Test strip Ql (U) 500 Abnormal Negative Kat/uL [facility] Mucus LM.HPF (Urine sed) [#/Area] Few Negative /LPF [facility] Nitrite Ql (U) Negative Negative [facility] Non-Squamous Epithalial Cells, Urine 0-2 Abnormal Negative /HPF [facility] pH (U) 5.5 [pH] 5.0 - 8.[address] [facility] Protein (U) [Mass/Vol] 50 mg/dL Abnormal Negative [facility] RBC LM.HPF (Urine sed) [#/Area] 11-[address] [facility] Specific gravity (U) [Rel density] High 1.005 - 1.030 [facility] Urobilinogen (U) [Mass/Vol] Normal Normal (0-1) mg/dL [facility] WBC LM.HPF (Urine sed) [#/Area] 51-100 Abnormal [facility] CBC W Auto Differential pane l (Bld)Ordered By: Silvia Bone on 10-18-2024 Erythrocyte distribution width (RBC) [Ratio] 14.5 % 11.5 - 15.0 % [facility] Hematocrit (Bld) [Volume fraction] 36.8 % Male: 40.0-52.0 ; Female: 35.0-47.0 [facility] Hemoglobin (Bld) [Mass/Vol] 11.6 g/dL Low 11.7 - 18.0 g/dL [facility] Interpretation and review of laboratory results Abnormal [facility] MCH (RBC) [Entitic mass] 27.1 pg 26.0 - 34.[address] [facility] MCHC (RBC) [Mass/Vol] 31.5 % 30.5 - 36.0 % [facility] MCV (RBC) [Entitic vol] 86 fL 77.0 - 99.[address] [facility] Platelet mean volume (Bld) [Entitic vol] 9.8 fL 9.0 - 12.[address] [facility] Platelets (Bld) [#/Vol] 373 10*3/uL 140 - 440 10*3/uL [facility] RBC (Bld) [#/Vol] 4.28 10*6/uL Male: 4.40-5.90; Female: 3.80-5.20 [facility] WBC (Bld) [#/Vol] 25.9 10*3/uL High 3.6 - 10.7 10*3/uL [facility] CBC WITH AUTO DIFFERENTIALon 10-18-2024 Erythrocyte distribution width (RBC) [Ratio] 14.5 % Normal 11.5-15.0 [facility] Comment on above: Performed By: #### L [id number], [id number] ####Manager Sas: KEMAR ABEBE ([phone])[facility] ([facility])[address] [place] [address] Hematocrit (Bld) [Volume fraction] 36.8 % Normal Male: 40.0-52.0 ; Female: 35.0-47.0 [facility] Comment on above: Performed By: #### L [id number], [id number] ####Manager Sas: KEMAR ABEBE ([phone])[facility] ([facility])[address] [place] [address] Hemoglobin (Bld) [Mass/Vol] 11.6 g/dL Low 11.7-18.0 [facility] Comment on above: Performed By: #### L [id number], [id number] ####Manager Sas: KEMAR ABEBE ([phone])[facility] ([facility])[address] [place] [address] MCH (RBC) [Entitic mass] 27.1 pg Normal 26.0-34.0 [facility] Comment on above: Performed By: #### L [id number], [id number] ####Manager Sas: KEMAR ABEBE ([phone])[facility] ([facility])[address] [place] [address] MCHC 31.5 % Normal 30.5-36.0 [facility] Comment on above: Performed By: #### L [id number], [id number] ####Manager Sas: KEMAR ABEBE ([phone])[facility] ([facility])[address] MCV (RBC) [Entitic vol] 86.0 fL Normal 77.0-99.0 [facility] Comment on above: Performed By: #### L [id number], [id number] ####Manager Sas: KEMAR ABEBE ([phone])[facility] CAMPUSWarren [place]PERN ([facility])[address] Platelet mean volume (Bld) [Entitic vol] 9.8 fL Normal 9.0-12.7 [facility] Comment on above: Performed By: #### L [id number], [id number] ####Manager Sas: KEMAR ABEBE ([phone])[facility] CAMPUSWarren [facility] ([facility])[address] Platelets (Bld) [#/Vol] 373 10*3/uL Normal 140-440 [facility] Comment on above: Performed By: #### L [id number], [id number] ####Manager Sas: KEMAR ABEBE ([phone])[facility] CAMPUSWarren [facility] ([facility])[address] [place] [address] RBC (Bld) [#/Vol] 4.28 10*6/uL Normal Male: 4.40-5.90; Female: 3.80-5.20 [facility] Comment on above: Performed By: #### L [id number], [id number] ####Manager Sas: KEMAR ABEBE ([phone])[facility] CAMPUSWarren [facility] ([facility])[address] [place] [address] [place] WBC (Bld) [#/Vol] 25.9 10*3/uL High 3.6-10.7 [facility] Comment on above: Performed By: #### L [id number], [id number] ####Manager Sas: KEMAR ABEBE ([phone])[facility] ([facility])[address] COMPLETE URINALYSISon 2023 AMORPHOUS CRYSTALS (#/HPF) IN URINE Few Abnormal Negative [facility] Comment on above: Performed By: #### L [id number] ####Manager Sas: MARCELA LUCERO ([phone])[facility] ([facility])[address] [place] [address]#### [id number] ####Manager Sas: KEMAR ABEBE ([phone])[facility] CAMPUSA [place] ([facility])[address] BACTERIA (#/HPF) IN URINE Few Abnormal Negative [facility] Comment on above: Performed By: #### L AB239 ####Manager Sas: MARCELA LUCERO ([phone])[facility] ([facility])[address] [place] [address]#### [id number] ####Manager Sas: KEMAR ABEBE ([phone])[facility] CAMPUSA [place] ([facility])[address] BILIRUBIN, TOTAL PRESENCE IN URINE Negative Normal Negative [facility] Comment on above: Performed By: #### L AB239 ####Manager Sas: MARCELA LUCERO ([phone])[facility] ([facility])[address] [place] [address]#### [id number] ####Manager Sas: KEMAR ABEBE ([phone])[facility] CAMPUSA [place] ([facility])[address] Clarity (U) Turbid Abnormal Clear [facility] Comment on above: Performed By: #### L [id number] ####Manager Sas: MARCELA LUCERO ([phone])[facility] ([facility])[address] [place] [address]#### [id number] ####Manager Sas: KEMAR ABEBE ([phone])[facility] CAMPUSA [place] ([facility])[address] Color (U) Yellow Normal Lt. Yellow [facility] Comment on above: Performed By: #### L AB239 ####Manager Sas: MARCELA LUCERO ([phone])[facility] ([facility])[address] [place] [address]#### [id number] ####Manager Sas: KEMAR ABEBE ([phone])[facility] ([facility])[address] [place] [address] GLUCOSE (MG/DL) IN URINE Normal Normal Normal (<70) [facility] Comment on above: Performed By: #### L [id number] ####Manager Sas: MARCELA LUCERO ([phone])[facility] ([facility])[address] [place] [address]#### [id number] ####Manager Sas: KEMAR ABEBE ([phone])[facility] ([facility])[address] [place] [address] GRANULAR CASTS (#/LPF) IN URINE 3-5 Abnormal Negative [facility] Comment on above: Performed By: #### L AB239 ####Manager Sas: MARCELA LUCERO ([phone])[facility] ([facility])[address] [place] [address]#### [id number] ####Manager Sas: KEMAR ABEBE ([phone])[facility] ([facility])[address] [place] [address] HEMOGLOBIN PRESENCE IN URINE 0.2 mg/dL Abnormal Negative [facility] Comment on above: Performed By: #### L AB239 ####Manager Sas: MARCELA LUCERO ([phone])[facility] ([facility])[address] [place] [address]#### [id number] ####Manager Sas: KEMAR ABEBE ([phone])[facility] ([facility])[address] [place] [address] HYALINE CASTS (#/LPF) IN URINE SEDIMENT BY MICROSCOPY 3-5 Abnormal Negative [facility] Comment on above: Performed By: #### L [id number] ####Manager Sas: MARCELA LUCERO ([phone])[facility] ([facility])[address] [place] [address]#### [id number] ####Manager Sas: KEMAR ABEBE ([phone])[facility] [place]ER[place]AT[place] (SB[facility])[address] [place] [address] Ketones Ql (U) Negative Normal Negative [facility] Comment on above: Performed By: #### L [id number] ####Manager Sas: MARCELA LUCERO ([phone])[facility] ([facility])[address] [place] [address]#### [id number] ####Manager Sas: KEMAR ABEBE ([phone])[facility] ([facility])[address] [place] [address] LEUKOCYTE ESTERASE PRESENCE IN URINE BY TEST STRIP 500 Kat/uL Abnormal Negative [facility] Comment on above: Performed By: #### L [id number] ####Manager Sas: MARCELA LUCERO ([phone])[facility] ([facility])[address] [place] [address]#### [id number] ####Manager Sas: KEMAR ABEBE ([phone])[facility] ([facility])[address] [place] [address] MUCUS (#/LPF) IN URINE SEDIMENT Few Normal Negative [facility] Comment on above: Performed By: #### L AB239 ####Manager Sas: MARCELA LUCERO ([phone])[facility] ([facility])[address] [place] [address]#### [id number] ####Manager Sas: KEMAR ABEBE ([phone])[facility] ([facility])[address] [place] [address] NITRITE PRESENCE IN URINE Negative Normal Negative [facility] Comment on above: Performed By: #### L AB239 ####Manager Sas: MARCELA LUCERO ([phone])[facility] ([facility])[address] [place] [address]#### [id number] ####Manager Sas: KEMAR ABEBE ([phone])[facility] ([facility])[address] [place] [address] NON-SQUAMOUS EPITHELIAL (#/HPF) IN URINE 0-2 Abnormal Negative [facility] Comment on above: Performed By: #### L [id number] ####Manager Sas: MARCELA LUCERO ([phone])[facility] ([facility])[address] [place] [address]#### [id number] ####Manager Sas: KEMAR ABEBE ([phone])[facility] ([facility])[address] [place] [address] pH (U) 5.5 [pH] Normal 5.0-8.0 [facility] Comment on above: Performed By: #### L [id number] ####Manager Sas: MARCELA LUCERO ([phone])[facility] ([facility])[address] [place] [address]#### [id number] ####Manager Sas: KEMAR ABEBE ([phone])[facility] ([facility])[address] [place] [address] Protein (U) [Mass/Vol] 50 mg/dL Abnormal Negative [facility] Comment on above: Performed By: #### L [id number] ####Manager Sas: MARCELA LUCERO ([phone])[facility] ([facility])[address] [place] [address] [place]#### [id number] ####Manager Sas: KEMAR ABEBE ([phone])[facility] ([facility])[address] [place] [address] RBC (#/HPF) IN URINE SEDIMENT 11-25 Abnormal 0-2 [facility] Comment on above: Performed By: #### L [id number] ####Manager Sas: MARCELA LUCERO ([phone])[facility] ([facility])[address] [place] [address]#### [id number] ####Manager Sas: KEMAR ABEBE ([phone])[facility] ([facility])[address] [place] [address] Specific gravity (U) [Rel density] >1.030 High 1.005-1.030 [facility] Comment on above: Performed By: #### L [id number] ####Manager Sas: MARCELA LUCERO ([phone])[facility] ([facility])[address] [place] [address]#### [id number] ####Manager Sas: KEMAR ABEBE ([phone])[facility] ([facility])[address] [place] [address] SQUAMOUS EPITHELIAL CELLS (#/HPF) IN URINE SEDIMENT 0-2 Normal 3-5 [facility] Comment on above: Performed By: #### L [id number] ####Manager Sas: MARCELA LUCERO ([phone])[facility] ([facility])[address] [place] [address]#### [id number] ####Manager Sas: KEMAR ABEBE ([phone])[facility] ([facility])[address] [place] [address] UROBILINOGEN (MG/DL) IN URINE Normal Normal Normal (0-1) [facility] Comment on above: Performed By: #### L [id number] ####Manager Sas: MARCELA LUCERO ([phone])[facility] ([facility])[address] [place] [address]#### [id number] ####Manager Sas: KEMAR ABEBE ([phone])[facility] ([facility])[address] [place] [address] WBC (LEUKOCYTE) (#/HPF) IN URINE SEDIMENT 51-100 Abnormal 0-5 [facility] Comment on above: Performed By: #### L [id number] ####Manager Sas: MARCELA LUCERO ([phone])[facility] ([facility])[address]#### [id number] ####Manager Sas: KEMAR ABEBE ([phone])[facility]AMPUSWarren [facility]N ([facility])[address] [place] [address] WBC (LEUKOCYTE) CLUMPS (#/HPF) IN URINE SEDIMENT Rare Abnormal Negative [facility] Comment on above: Performed By: #### L [id number] ####Manager Sas: MARCELA LUCERO ([phone])[facility] ([facility])[address] [place] [address]#### [id number] ####Manager Sas: KEMAR ABEBE ([phone])[facility] CAMPUSWarren [facility] ([facility])[address] [place] [address] COMPREHENSIVE METABOLIC PANE Gigi 10-18-2024 Albumin [Mass/Vol] 3.0 g/dL Low 3.5-5.0 [facility] Comment on above: Performed By: #### Elijah AB17, LAB99, [id number] ####Manager Sas: KEMAR ABEBE ([phone])[facility] CAMPUSA SHERIMARYN (SB[facility])[address] [place] [address] ALP [Catalytic activity/Vol] 133 U/L Normal [facility] Comment on above: Performed By: #### L AB17, LAB99, [id number] ####Manager Sas: KEMAR ABEBE ([phone])[facility] CAMPUSA [facility] ([facility])[address] [place] [address] ALT [Catalytic activity/Vol] 67 U/L Normal [facility] Comment on above: Performed By: #### L AB17, LAB99, [id number] ####Manager Sas: KEMAR ABEBE ([phone])[facility] CAMPUSA [place] ([facility])[address] [place] [address] Anion gap [Moles/Vol] 13 mmol/L Normal 3-13 [facility] Comment on above: Performed By: #### L AB17, LAB99, [id number] ####Manager Sas: KEMAR ABEBE ([phone])[facility] CAMPUSWarren [facility] ([facility]HL[facility])[address] [place] [address] [place] AST [Catalytic activity/Vol] 50 U/L High <34 [facility] Comment on above: Performed By: #### Elijah AB17, LAB99, [id number] ####Manager Sas: KEMARDU ABEBE ([phone])[facility]AMPUSWarren [facility] ([facility])[address] Bilirubin [Mass/Vol] 0.7 mg/dL Normal <1.2 [facility] Comment on above: Performed By: #### Elijah MENDOZA, LAB99, [id number] ####Manager Sas: KEMAR ABEBE ([phone])[facility] CAMPUSWarren [facility] ([facility])[address] Calcium [Mass/Vol] 9.0 mg/dL Normal 8.4-10.2 [facility] Comment on above: Performed By: #### Elijah AB17, LAB99, [id number] ####Manager Sas: KEMAR ANDRAE ([phone])[facility] ([facility])[address] Chloride [Moles/Vol] 103 mmol/L Normal 98-107 [facility] Comment on above: Performed By: #### Elijah AB17, LAB99, [id number] ####Manager Sas: KEMAR MOMINHARRISON ([phone])[facility] ([facility])[address] [place] [address] [place] CO2 [Moles/Vol] 21 mmol/L Low 22-29 [facility] Comment on above: Performed By: #### Elijah AB17, LAB99, [id number] ####Manager Sas: KEMAR MOMINHARRISON ([phone])[facility] ([facility])[address] Creatinine [Mass/Vol] 1.16 mg/dL Normal [facility] Comment on above: Performed By: #### Elijah AB17, LAB99, [id number] ####Manager Sas: KEMAR ABEBE ([phone])[facility] ([facility])[address] GLOMERULAR FILTRATION RATE ML/MIN/1.73 SQ M.PREDICTED 55.1 mL/min/1.73m*2 Low >60.0 [facility] Comment on above: Result Comment: Calc ulation based on the Chronic Kidney Disease Epidemiology Collaboration (CKD-EPI) equation refit without adjustment for race Performed By: #### Elijah OJEDA17, LAB99, [id number] ####Manager Sas: KEMAR ABEBE ([phone])[facility] ([facility])[address] Glucose [Mass/Vol] 226 mg/dL High 74-100 [facility] Comment on above: Performed By: #### Elijah MENDOZA, LAB99, [id number] ####Manager Sas: KEMAR ABEBE ([phone])[facility] ([facility])[address] Potassium [Moles/Vol] 4.1 mmol/L Normal 3.5-5.1 [facility] Comment on above: Result Comment: [facility] potassium values may be up to 0.5 mmol/L lower than serum values. Performed By: #### Elijah OJEDA17, LAB99, [id number] ####Manager Sas: KEMAR ABEBE ([phone])[facility] ([facility])[address] [place] [address] [place] Protein [Mass/Vol] 6.7 g/dL Normal 6.4-8.3 [facility] Comment on above: Performed By: #### Elijah OJEDA17, LAB99, [id number] ####Manager Sas: KEMAR ABEBE ([phone])[facility] ([facility])[address] Sodium [Moles/Vol] 137 mmol/L Normal 136-145 [facility] Comment on above: Performed By: #### Elijah OJEDA17, LAB99, [id number] ####Manager Sas: KEMAR ABEBE ([phone])[facility] ([facility])[address] Urea nitrogen [Mass/Vol] 24 mg/dL High - [facility] Comment on above: Performed By: #### L AB17, LAB99, [id number] ####Manager Sas: KEMAR ABEBE ([phone])[facility] ([facility])[address] ABDOMEN PELVIS W CONTRAST on 10-18-2024 CT ABDOMEN PELVIS W CONTRAST Normal [facility] CT Abdomen and Pelvis W cont rast Erica 10-18-2024 Distended gallbladde r with suspected gallbladder wall edema concerning for acute cholecystitis. Distended stomach with air-fluid level may be related. Please correlate clinically. Follow-up recommended. CTR Dr Woodall. Report Dictated on Electronically Signed By: Javy Urias MD Electronically Signed Date/Time: 10/18/2024 7:12 PM EST [facility] Patient Name: WILL ALVARADO : 1965 Exam [...] adenopathy. No definite aneurysm. No spinal compression. [facility] Javy Urias MD - 10/18/2024 Patient Name: [...] MD Electronically Signed Date/Time: 10/18/2024 7:12 PM [facility] Radiology Study observation (narrative) [facility]A Chest vessels WO and W c ontrast Erica 10-18-2024 Impression:Very limi laura due to motion.. Consider repeat exam or VQ scan for persistent symptoms. Note made of distended stomach with air-fluid level. Report Dictated on Electronically Signed By: Javy Urias MD Electronically Signed Date/Time: 10/18/2024 7:05 PM [employer] [facility] Patient Name: WILL ALVARADO : 1965 [...] Distended stomach with air-fluid level. Significance uncertain.. [facility] Javy Urias MD - 10/18/2024 [...] Electronically Signed Date/Time: 10/18/2024 7:[address] [facility] Radiology Study observation (narrative) [facility] Chest vessels WO and W c ontrast IVOrdered By: Javy Urias on 10-18-2024 [facility] Work Phone: Comprehensive metabolic 1998 panelon 10-18-2024 Albumin [Mass/Vol] 3 g/dL Low 3.5 - 5.0 g/dL [facility] ALP [Catalytic activity/Vol] 133 U/L [facility] ALT [Catalytic activity/Vol] 67 U/L [facility] Anion gap [Moles/Vol] 13 mmol/L 3 - 13 mmol/L [facility] AST [Catalytic activity/Vol] 50 U/L High NINF - 34 U/L [facility] Bilirubin [Mass/Vol] 0.7 mg/dL NINF - 1.2 mg/dL [facility] Calcium [Mass/Vol] 9 mg/dL 8.4 - 10. 2 mg/dL [facility] Chloride [Moles/Vol] 103 mmol/L 98 - 10 7 mmol/L [facility] CO2 [Moles/Vol] 21 mmol/L Low 22 - 29 mmol/L [facility] Creatinine [Mass/Vol] 1.16 mg/dL [facility] GFR/1.73 sq M.predicted (S/P/Bld) [Vol rate/Area] 55.1 mL/min Low - PINF [facility] Comment on above: Calculation based on the Chronic Kidney Disease Epidemiology Collaboration (CKD-EPI) equation refit without adjustment for race Glucose [Mass/Vol] 226 mg/dL High 74 - 100 mg/dL [facility] Interpretation and review of laboratory results Abnormal [facility] Potassium [Moles/Vol] 4.1 mmol/L 3.5 - 5.1 mmol/L [facility] Comment on above: Plasma potassium helen ues may be up to 0.5 mmol/L lower than serum values. Protein [Mass/Vol] 6.7 g/dL 6.4 - 8.3 g/dL [facility] Sodium [Moles/Vol] 137 mmol/L 136 - 145 mmol/L [facility] Urea nitrogen [Mass/Vol] 24 mg/dL High 9 - 23 mg/dL [facility] ECG 12-LEADon 10-18-2024 ECG 12-LEAD IMPRESSION: Sinus rhythm Left ventricular hypertrophy Anterior Q waves, possibly due to LVH Electronically Signed On 10-18-2024 23:06:53 EST by Sunitha Borja Normal [facility] ED Nursing Noteon 10-18-2024 ED Nursing Note EKG at bedside Normal [facility] ED Nursing Note EKG called Normal [facility] ED Nursing Note Pt presents to er fr [facility] [place]. Pt presents with abd pain, diarrhea, chest pain. Pt presents aox4 speaking in full and complete sentences. Normal [facility] ED Provider Noteon ED Provider Note Normal [facility] HIGH SENSITIVITY TROPONIN, S ERIAL BASELINEon 10-18-2024 TROPONIN HIGH SENSITIVITY BASELINE <3 Normal [facility] Comment on above: Performed By: #### L AB17, LAB99, [id number] ####Manager Sas: KEMAR ABEBE ([phone])[facility] ([facility])[address] [place] [address] HIGH SENSITIVITY TROPONIN, S ERIAL, SECOND TESTon 10-18-2024 TROPONIN HS DELTA, BASELINE TO SECOND [facility] Comment on above: Result Comment: A tr [...] further clinical guidance. Performed By: #### L [id number] ####Manager Sas: KEMAR ABEBE ([phone])[facility] ([facility] TROPONIN HS, SERIAL REFLEX, TEST TWO <3 [facility] Comment on above: Performed By: #### L [id number] ####Manager Sas: KEMAR ABEBE ([phone])[facility] LACTIC ACID WITH REFLEXon Lactate [Moles/Vol] 0.8 mmol/L Normal 0.5-2.2 [facility] Comment on above: Performed By: #### L [id number] ####Manager Sas: KEMAR ABEBE ([phone])[facility] Lactate [Moles/Vol] 2.2 mmol/L Normal 0.5-2.2 [facility] Comment on above: Performed By: #### L [id number] ####Manager Sas: KEMAR ABEBE ([phone])[facility] LIPASEon 10-18-2024 Lipase [Catalytic activity/Vol] 6 U/L Normal <55 [facility] Comment on above: Performed By: #### L AB17, LAB99, [id number] ####Manager Sas: KEMAR ABEBE ([phone])[facility] [place] [address] Laboratory - Chemistry and C hemistry - challengeon 10-18-2024 Lactate [Moles/Vol] 0.8 mmol/L 0.5 - 2. 2 mmol/L [facility] Glucose [Mass/Vol] 136 mg/dL High 70 - 100 mg/dL [facility] Lactate [Moles/Vol] 2.2 mmol/L 0.5 - 2. 2 mmol/L [facility] Lipase [Catalytic activity/Vol] 6 U/L NINF - 55 U/L [facility] Lipase [Catalytic activity/V ol]on 10-18-2024 Interpretation and review of laboratory results Normal [facility] MANUAL DIFFERENTIALon 2023 BAND NEUTROPHILS TOTAL PER COUNTED LEUKOCYTES BY MANUAL COUNT 7 Normal [facility] Comment on above: Performed By: #### L [id number], [id number] ####Manager Sas: KEMAR ABEBE ([phone])[facility])[address] BANDS 0.9 10*3/uL High <=0.0 [facility] Comment on above: Performed By: #### L [id number], [id number] ####Manager Sas: KEMAR LUDWIGSAAD ([phone])[facility] [place] ([facility])[address] CELLS COUNTED TOTAL (#) IN BLOOD 200 Normal [facility] Comment on above: Performed By: #### L [id number], [id number] ####Manager Sas: KEMAR MOMINHARRISON ([phone])[facility] [place] ([facility])[address] LEUKOCYTE MORPHOLOGY FINDING IN BLOOD Normal Normal [facility] Comment on above: Performed By: #### L [id number], [id number] ####Manager Sas: KEMAR ANDRAE ([phone])[facility] ([facility])[address] [place] [address] LEUKOCYTES (10*3/UL) NUCLEATED ERYTHROCYTE ADJUST 25.9 10*3/uL High 3.6-10.7 [facility] Comment on above: Performed By: #### L [id number], [id number] ####Manager Sas: KEMAR MOMINHARRISON ([phone])[facility] ([facility])[address] [place] [address] [place] LYMPHOCYTES (10*3/UL) IN BLOOD BY MANUAL COUNT 0.4 10*3/uL Low 1.0-4.3 [facility] Comment on above: Performed By: #### L [id number], [id number] ####Manager Sas: KEMAR ABEBE ([phone])[facility] [place] ([facility])[address] [place] [address] [place] LYMPHOCYTES TOTAL PER COUNTED LEUKOCYTES BY MANUAL COUNT 3 Normal [facility] Comment on above: Performed By: #### L [id number], [id number] ####Manager Sas: KEMAR ABEBE ([phone])[facility] ([facility])[address] [place] [address] [place] LYMPHOCYTES VARIANT/100 LEUKOCYTES IN BLOOD 3 % High <=0 [facility] Comment on above: Performed By: #### L [id number], [id number] ####Manager Sas: KEMAR ANDRAE ([phone])[facility] [place] ([facility])[address] [place] [address] [place] LYMPHOCYTES/100 LEUKOCYTES IN BLOOD BY MANUAL COUNT 2 % Low 15-45 [facility] Comment on above: Performed By: #### L [id number], [id number] ####Manager Sas: KEMAR ANDRAE ([phone])[facility] [place] ([facility])[address] [place] [address] [place] METAMYELOCYTES (10*3/UL) IN BLOOD BY MANUAL COUNT 0.1 10*3/uL High <=0.0 [facility] Comment on above: Performed By: #### L [id number], [id number] ####Manager Sas: KEMAR ABEBE ([phone])[facility] [place] ([facility])[address] [place] [address] [place] METAMYELOCYTES TOTAL PER COUNTED LEUKOCYTES BY MANUAL COUNT 1 Normal [facility] Comment on above: Performed By: #### L [id number], [id number] ####Manager Sas: KEMAR ANDRAE ([phone])[facility] [place] ([facility])[address] [place] [address] [place] METAMYELOCYTES/100 LEUKOCYTES IN BLOOD BY MANUAL COUNT 1 % High <=0 [facility] Comment on above: Performed By: #### L [id number], [id number] ####Manager Sas: KEMAR ANDRAE ([phone])[facility] [place] ([facility])[address] [place] [address] [place] MONOCYTES (10*3/UL) IN BLOOD BY MANUAL COUNT 1.4 10*3/uL High 0.0-0.9 [facility] Comment on above: Performed By: #### L [id number], [id number] ####Manager Sas: KEMAR ANDRAE ([phone])[facility] [place] ([facility])[address] [place] [address] [place] MONOCYTES TOTAL PER COUNTED LEUKOCYTES BY MANUAL COUNT 11 Normal [facility] Comment on above: Performed By: #### L [id number], [id number] ####Manager Sas: KEMAR ABEBE ([phone])[facility] [place] ([facility])[address] [place] [address] [place] MONOCYTES/100 LEUKOCYTES IN BLOOD BY MANUAL COUNT 6 % Normal 5-13 [facility] Comment on above: Performed By: #### L [id number], [id number] ####Manager Sas: KEMAR ABEBE ([phone])[facility] [place] ([facility])[address] [place] [address] [place] NEUTROPHILS (SEGS+BANDS) (10*3/UL) BY MANUAL COUNT 23.2 10*3/uL High 1.8-7.0 [facility] Comment on above: Performed By: #### L [id number], [id number] ####Manager Sas: KEMAR ABEBE ([phone])[facility] ([facility])[address] [place] [address] [place] NEUTROPHILS BAND FORM/100 LEUKOCYTES IN BLOOD BY MANUAL COUNT 4 % High <=0 [facility] Comment on above: Performed By: #### L [id number], [id number] ####Manager Sas: KEMAR ABEBE ([phone])[facility] [place] ([facility])[address] [place] [address] [place] NEUTROPHILS TOTAL PER COUNTED LEUKOCYTES BY MANUAL COUNT 172 Normal [facility] Comment on above: Performed By: #### L [id number], [id number] ####Manager Sas: KEMAR ABEBE ([phone])[facility] [place] ([facility])[address] [place] [address] [place] PLATELET MORPHOLOGY IN BLOOD Normal Normal [facility] Comment on above: Performed By: #### L [id number], [id number] ####Manager Sas: KEMAR ABEBE ([phone])[facility] ([facility])[address] [place] [address] [place] RBC MORPHOLOGY IN BLOOD Normal Normal S [facility] Comment on above: Performed By: #### L [id number], [id number] ####Manager Sas: KEMAR BANUELOSCER ([phone])[facility] [place] ([facility])[address] SEGEMENTED NEUTROPHILS/100 LEUKOCYTES BY MANUAL COUNT 86 % High 38-82 [facility] Comment on above: Performed By: #### L [id number], [id number] ####Manager Sas: KEMAR MOMINHARRISON ([phone])[facility] ([facility])[address] SEGMENTED NEUTROPHILS (10*3/UL)IN BLOOD BY MANUAL COUNT 23.2 10*3/uL High 1.8-7.5 [facility] Comment on above: Performed By: #### L [id number], [id number] ####Manager Sas: KEMAR MOMINHARRISON ([phone])[facility] [place] ([facility])[address] VARIANT LYMPHOCYTES (10*3/UL) IN BLOOD BY MANUAL COUNT 0.8 10*3/uL High <=0.0 [facility] Comment on above: Performed By: #### L [id number], [id number] ####Manager Sas: KEMAR ABEBE ([phone])[facility] ([facility])[address] VARIANT LYMPHOCYTES TOTAL PER COUNTED LEUKOCYTES BY MANUAL COUNT 6 Normal [facility] Comment on above: Performed By: #### L [id number], [id number] ####Manager Sas: KEMAR LUDWIGSAAD ([phone])[facility] ([facility])[address] Manual differential performe d Ql (Bld)on 10-18-2024 Atypical Lymphocytes Manual 6 [email or web address] Band form neutrophils (Bld) [#/Vol] 0.9 10*3/uL High NINF - 0.0 10*3/uL [email or web address] Band form neutrophils/100 WBC (Bld) 4 % High NINF - 0 % [facility] Bands Manual 7 [facility] [email or web address] Cells Counted Total (Bld) [#] 200 {cells} [facility] Interpretation and review of laboratory results Abnormal [facility] Leukocyte morphology finding Nom (Bld) Normal [facility] Lymphocytes (Bld) [#/Vol] 0.4 10*3/uL Low 1.0 - 4.3 10*3/uL [facility] Lymphocytes Manual 3 [facility] Lymphocytes/100 WBC (Bld) 2 % Low 15 - 45 % [facility] Metamyelocytes (Bld) [#/Vol] 0.1 10*3/uL High NINF - 0.0 10*3/uL [facility] Metamyelocytes Manual 1 [facility] Metamyelocytes/100 WBC (Bld) 1 % High NINF - 0 % [facility] Monocytes (Bld) [#/Vol] 1.4 10*3/uL High 0.0 - 0.9 10*3/uL [facility] Monocytes Manual 11 [facility] Monocytes/100 WBC (Bld) 6 % 5 - 13 % [facility] Neutrophils (Bld) [#/Vol] 23.2 10*3/uL High 1.8 - 7.5 10*3/uL [facility] Neutrophils Manual 172 [facility] Platelet morphology finding Nom (Bld) Normal [facility] RBC morphology finding Nom (Bld) Normal [facility] Segmented neutrophils/100 WBC (Bld) 86 % High 38 - 82 % [facility] Variant lymphocytes (Bld) [#/Vol] 0.8 10*3/uL High NINF - 0.0 10*3/uL [facility] Variant lymphocytes/100 WBC (Bld) 3 % High NINF - 0 % [facility] WBC corrected for nucl RBC (Bld) [#/Vol] 25.9 10*3/uL High 3.6 - 10.7 10*3/uL [facility] No Panel Informationon 10-18 Interpretation and review of laboratory results Normal [facility] Sinus rhythm Left ventricular hypertrophy Anterior Q waves, possibly due to LVH Electronically Signed On 10-18-2024 23:06:53 EST by Sunitha Peter MD - 10/18/2024 IMPRESSION: Sinus rhythm Left ventricular hypertrophy Anterior Q waves, possibly due to LVH Electronically Signed On 10-18-2024 23:06:53 EST by Sunitha Borja [facility] Interpretation and review of laboratory results Abnormal [email or web address] Performed by: [facility], [address] [address] CLIA ID: [id number] [facility] [place] Troponin HS Delta, Baseline to Second [email or web address] [email or web address] Comment on above: A troponin delta gre [...] guidance. Troponin HS, Serial Second ng/L ng/L [facility] [place] Troponin HS, Serial Baseline ng/L ng/L [facility] [email or web address] Interpretation and review of laboratory results Normal [facility] [email or web address] [email or web address] No Panel InformationOrdered By: Sunitha Borja on 10-18-2024 P [place] 68 degrees [place] Phone: [place] Interval 185 ms [place] Phone: QRS [place] -37 degrees [place] Phone: QRSD Interval 108 ms [place] Phone: QT Interval 386 ms [place] Phone: QTC Interval 489 ms [place] Phone: T Wave [place] 47 degrees [place] Phone: [place] Phone: URINE CULTUREon 10-18-2024 Bacteria identified Cx Nom (U) Normal [facility] [email or web address] [facility] Comment on above: Performed By: #### L [id number] ####Manager Sas: MARCELA LUCERO ([phone])[facility] ([facility])[address] [place] [address]#### [id number] ####Manager Sas: KEMAR ABEBE ([phone])[facility]US[facility] [place] ([facility])[address] US ABDOMEN LIMITEDon 024 US ABDOMEN LIMITED Normal [facility] [email or web address] [facility] US Abdomen limitedon 024 1. Cholestasis, cholelithiasis, gallbladder wall thickening, with probable mural edema and trace pericholecystic fluid, as well as positive sonographic Caldwell's sign, suspicious for postinflammatory change, including acute cholecystitis. Clinical correlation and follow-up as indicated. Report Dictated on Electronically Signed By: Joel Haddad MD Electronically Signed Date/Time: 10/18/2024 8:21 PM EST [facility] Patient Name: WILL ALVARADO : 1965 [...] adequately visualized due to overlying bowel gas. [facility] Joel Haddad MD - 10/18/2024 Patient Name: [...] Electronically Signed Date/Time: 10/18/2024 8:21 PM EST [facility] [email or web address] Radiology Study observation (narrative) [facility] [email or web address] US Abdomen limitedOrdered By : Joel Haddad on 10-18-2024 [facility] Vital signsOrdered By: Sunitha Borja on 10-18-2024 Heart rate 96 /min bpm [facility]: 36on 10-17-2024 36 [facility] spoke with nurse laney. I relayed the message below and she verbalized understanding. [facility] 36 A lot of varibility. Many of results are adequate, many high. No clear trend to change doses thank you [facility] 36on 10-16-2024 36 Patient's BGL Normal [facility] 36on 10-10-2024 36 Faxed recommendation to [facility]([phone]) [facility] 36on 10-09-2024 36 Keep doses the same for now thank you [facility] 36 Patient's BGL Normal [facility] 36on 10-04-2024 36 Patient's BGL Normal [facility] 36on 09-26-2024 36 Notified pt's nurse at his facilities. Normal [facility] 36on 09-25-2024 36 A lot of variability please keep doses the same thank you Normal [facility] 36 Patient's BGL Normal [facility] Hemoglobin A1con 09-22-2024 HbA1c (Bld) [Mass fraction] 7.6 % High 3.8-5.6 [facility] Comment on above: Order Comment: 103.1 Result Comment: Norm al < 5.7 % Prediabetic 5.7 - 6.4 % Diabetic >or= 6.5 % Please note range changes. Performed By: #### L 100.0500, L500.2500 #### [facility] [address] [place], [place], [id number] Hemoglobin A1c percentageOrd ered By: Jared Guzman on 09-22-2024 HbA1c (Bld) [Mass fraction] 7.6 % High 3.8-5.6 [facility] Comment on above: Normal < 5.7 % Predi abetic 5.7 - 6.4 % Diabetic >or= 6.5 % Please note range changes. 36on 09-20-2024 36 [facility]. Thank you! Normal [facility] 36on 09-19-2024 36 Very high doses with variability and history severe hypoglycemia- would not change doses for now Normal [facility] 36 Patient's BGL Normal [facility] 36on 09-13-2024 36 [facility] [phone] Normal [facility] CBC-Complete Blood Cnt No Di ffon 09-12-2024 Erythrocyte distribution width (RBC) [Ratio] 13.8 % Normal 11.6-14.6 [facility] Comment on above: Order Comment: 103.1 Performed By: #### L 100.0500, L500.4050 #### [facility] [address] [place], [address] Hematocrit (Bld) [Volume fraction] 35.2 % Low 37-47 [facility] Comment on above: Order Comment: 103.1 Performed By: #### L 100.0500, L500.4050 #### [facility] [address] [place], [address] Hemoglobin (Bld) [Mass/Vol] 11.3 g/dL Low 12.0-15.0 [facility] Comment on above: Order Comment: 103.1 Performed By: #### L 100.0500, L500.4050 #### [facility] [address] [place], [address] MCH (RBC) [Entitic mass] 27.8 pg Normal 27.0-32.0 [facility] Comment on above: Order Comment: 103.1 Performed By: #### L 100.0500, L500.4050 #### [facility] [address] [place], [address] MCHC (RBC) [Mass/Vol] 32.1 g/dL Normal 32-36 [facility] Comment on above: Order Comment: 103.1 Performed By: #### L 100.0500, L500.4050 #### [facility] [address] [place], [address] MCV (RBC) [Entitic vol] 86.7 fL Normal 81-99 [facility] Comment on above: Order Comment: 103.1 Performed By: #### L 100.0500, L500.4050 #### [facility] [address] [place], [address] Platelet mean volume (Bld) [Entitic vol] 10.2 fL Normal 6.2-12.0 [facility] Comment on above: Order Comment: 103.1 Performed By: #### L 100.0500, L500.4050 #### [facility] [address] [place], [address] Platelets (Bld) [#/Vol] 352 10*3/uL Normal 150-450 [facility] Comment on above: Order Comment: 103.1 Performed By: #### L 100.0500, L500.4050 #### [facility] [address] [place], [address] RBC (Bld) [#/Vol] 4.06 10*6/uL Low 4.2-5.4 [facility] Comment on above: Order Comment: 103.1 Performed By: #### L 100.0500, L500.4050 #### [facility] [address] [place], [address] RDW SD 43.5 fl Normal 35.1-43.9 [facility] Comment on above: Order Comment: 103.1 Performed By: #### L 100.0500, L500.4050 #### [facility] [address] [place], [address] WBC (Bld) [#/Vol] 8.5 10*3/uL Normal 4.4-11.0 [facility] Comment on above: Order Comment: 103.1 Performed By: #### L 100.0500, L500.4050 #### [facility] [address] [place], [address] 36on 09-11-2024 36 Keep doses the same for now thank you Normal [facility] 36 Patient's BGL Normal [facility] CBC-Complete Blood Cnt No Di ffon 09-11-2024 HCT Normal 37-47 [facility] Comment on above: Order Comment: 103.1 Result Comment: DID NOT GET PURPLE TOP Performed By: #### L 100.0500, L500.4050 #### [facility] [address] [place], [address] HGB Normal 12.0-15.0 [facility] Comment on above: Order Comment: 103.1 Result Comment: DID NOT GET PURPLE TOP Performed By: #### L 100.0500, L500.4050 #### [facility] [address] [place], [address] MCH Normal 27.0-32.0 [facility] Comment on above: Order Comment: 103.1 Result Comment: DID NOT GET PURPLE TOP Performed By: #### L 100.0500, L500.4050 #### [facility] [address] [place], [address] MCHC Normal 32-36 [facility] Comment on above: Order Comment: 103.1 Result Comment: DID NOT GET PURPLE TOP Performed By: #### L 100.0500, L500.4050 #### [facility] [address] [place], [address] MCV Normal 81-99 [facility] Comment on above: Order Comment: 103.1 Result Comment: DID NOT GET PURPLE TOP Performed By: #### L 100.0500, L500.4050 #### [facility] [address] [place], [address] PLT Normal 150-450 [facility] Comment on above: Order Comment: 103.1 Result Comment: DID NOT GET PURPLE TOP Performed By: #### L 100.0500, L500.4050 #### [facility] [address] [place], [address] RBC Normal 4.2-5.4 [facility] Comment on above: Order Comment: 103.1 Result Comment: DID NOT GET PURPLE TOP Performed By: #### L 100.0500, L500.4050 #### [facility] [address] [place], [address] RDW CV Normal 11.6-14.6 [facility] Comment on above: Order Comment: 103.1 Result Comment: DID NOT GET PURPLE TOP Performed By: #### L 100.0500, L500.4050 #### [facility] [address] [place], [address] RDW SD Normal 35.1-43.9 [facility] Comment on above: Order Comment: 103.1 Result Comment: DID NOT GET PURPLE TOP Performed By: #### L 100.0500, L500.4050 #### [facility] [address] [place], [address] WBC Normal 4.4-11.0 [facility] Comment on above: Order Comment: 103.1 Result Comment: DID NOT GET PURPLE TOP Performed By: #### L 100.0500, L500.4050 #### [facility] [address] [place], [address] Comprehensive Metabolic Prof ilon 09-11-2024 Albumin [Mass/Vol] 3.3 g/dL Normal 3.2-5.0 [facility] Comment on above: Order Comment: 103.1 Performed By: #### L 100.0500, L500.4050 #### [facility] [address] [place], [address] Albumin/Globulin [Mass ratio] 1.0 {ratio} Normal 0.9-2.4 [facility] Comment on above: Order Comment: 103.1 Performed By: #### L 100.0500, L500.4050 #### [facility] [address] [place], [address] ALK P 169 U/L High 45-117 [facility] Comment on above: Order Comment: 103.1 Performed By: #### L 100.0500, L500.4050 #### [facility] [address] [place], [address] ALT [Catalytic activity/Vol] 30 U/L Normal 13-56 [facility] Comment on above: Order Comment: 103.1 Performed By: #### L 100.0500, L500.4050 #### [facility] [address] [place], [address] AST [Catalytic activity/Vol] 15 U/L Normal 15-37 [facility] Comment on above: Order Comment: 103.1 Performed By: #### L 100.0500, L500.4050 #### [facility] [address] [place], [address] Bilirubin [Mass/Vol] 0.40 mg/dL Normal 0.20-1.00 [facility] Comment on above: Order Comment: 103.1 Result Comment: For patients on eltrombopag therapy, use of Dimension [place] TBIL is not recommended. Performed By: #### L 100.0500, L500.4050 #### [facility] [address] [place], [address] BUN/CRE 17.4 RATIO Normal 10-20 [facility] Comment on above: Order Comment: 103.1 Performed By: #### L 100.0500, L500.4050 #### [facility] [address] [place], [address] CA,Total 8.9 mg/dL Normal 8.5-10.1 [facility] Comment on above: Order Comment: 103.1 Performed By: #### L 100.0500, L500.4050 #### [facility] [address] [place], [address] Chloride [Moles/Vol] 105 mmol/L Normal 98-107 [facility] Comment on above: Order Comment: 103.1 Performed By: #### L 100.0500, L500.4050 #### [facility] [facility] [address] [place], [address] CO2 [Moles/Vol] 27.0 mmol/L Normal 21.0-32.0 [facility] Comment on above: Order Comment: 103.1 Performed By: #### L 100.0500, L500.4050 #### [facility] [address] [place], [address] Creatinine [Mass/Vol] 0.86 mg/dL Normal 0.55-1.02 [facility] Comment on above: Order Comment: 103.1 Result Comment: The validity of the calculated GFR GFRAA in patients over 70 years has not been determined. Clinical correlation is essential. Performed By: #### L 100.0500, L500.4050 #### [facility] [address] [place], [address] EST GFR - AA 87 mL/min Normal >60 [facility] Comment on above: Order Comment: 103.1 Result Comment: Afri can Tajik GFR Calc Performed By: #### L 100.0500, L500.4050 #### [facility] [address] [place], [address] GAP 7 Normal 5-15 [facility] Comment on above: Order Comment: 103.1 Performed By: #### L 100.0500, L500.4050 #### [facility] [address] [place], [address] GFR/1.73 sq M.predicted among non-blacks MDRD (S/P/Bld) [Vol rate/Area] 72 mL/min/{1.73_m2} Normal >60 [facility] Comment on above: Order Comment: 103.1 Result Comment: Non- GFR Calc Performed By: #### L 100.0500, L500.4050 #### [facility] [address] [place], [address] Globulin (S) [Mass/Vol] 3.4 g/dL Normal 2.2-4.2 [facility] Comment on above: Order Comment: 103.1 Performed By: #### L 100.0500, L500.4050 #### [facility] [address] [place], [address] Glucose [Mass/Vol] 283 mg/dL High 74-106 [facility] Comment on above: Order Comment: 103.1 Result Comment: Gluc ose result greater than or equal to 200 mg/dL suggests DIABETES MELLITUS per A.D.A. criteria. Performed By: #### L 100.0500, L500.4050 #### [facility] [address] [place], [address] Potassium [Moles/Vol] 4.3 mmol/L Normal 3.5-5.1 [facility] Comment on above: Order Comment: 103.1 Performed By: #### L 100.0500, L500.4050 #### [facility] [address] [place], [address] Sodium [Moles/Vol] 139 mmol/L Normal 136-145 [facility] Comment on above: Order Comment: 103.1 Performed By: #### L 100.0500, [id number] #### [facility] [address] [place], [address] T PROT 6.7 g/dL Normal 6.4-8.2 [facility] Comment on above: Order Comment: 103.1 Performed By: #### L 100.0500, L500.4050 #### [facility] [address] [place], [address] Urea nitrogen [Mass/Vol] 15 mg/dL Normal 7-18 [facility] Comment on above: Order Comment: 103.1 Performed By: #### L 100.0500, L500.4050 #### [facility] [address] [place], [address] 36on 08-30-2024 36 Faxed recommendation to [facility]. Thank you! [facility] 36on 08-29-2024 36 For now keep doses t he same thank you Normal [facility] 36 Patient's BGL Normal [facility] 36on 08-22-2024 36 Patient's B GL Normal [facility] 36on 08-09-2024 36 There's a more recen t BGL that you also advised no changes. I faxed over recommendation to [facility]. Thank you! [facility] 36 Faxed recommendation to [facility]. Thank you! Normal [facility] 36on 08-08-2024 36 Somewhat improved; w ould not make any changes at this point thank you Normal [facility] 36 Patient's BGL Normal [facility] 36on 08-04-2024 36 Please keep doses th e same thank you Normal [facility] 36on 08-03-2024 36 Patient's BGL Normal [facility] 36on 07-31-2024 36 Faxed recommendation to [facility]([phone]) Normal [facility] - Chemistry and C hemistry - challengeon 01-27-2024 Glucose [Mass/Vol] 143 mg/dL High 70 - 100 mg/dL [facility] No Panel Informationon 01-26 Interpretation and review of laboratory results Abnormal [facility] Performed by: [facility], [address] [place] [address] CLIA ID: [id number] [facility] Radiology Study observation (narrative) [facility] - Chemistry and C hemistry - challengeon 01-26-2024 Glucose [Mass/Vol] 101 mg/dL High 70 - 100 mg/dL [facility] Glucose [Mass/Vol] 111 mg/dL High 70 - 100 mg/dL [facility] Glucose [Mass/Vol] 102 mg/dL High 70 - 100 mg/dL [facility] No Panel Informationon 01-25 Interpretation and review of laboratory results Abnormal [facility] Performed by: [facility], [address] [place] [address] CLIA ID: [id number] [facility] Interpretation and review of laboratory results Abnormal [facility] Performed by: [facility], [address] [place] [address] CLIA ID: [id number] [facility] Interpretation and review of laboratory results Abnormal [facility] Performed by: [facility], [address] [place] [address] CLIA ID: [id number] [facility] Radiology Study observation (narrative) [facility] Radiology Study observation (narrative) [facility] Radiology Study observation (narrative) [email or web address] CBC W Auto Differential pane l (Bld)on 01-22-2024 Basophils (Bld) [#/Vol] 0.1 10*3/uL 0.0 - 0.2 10*3/uL [facility] Basophils/100 WBC (Bld) 0.5 % 0.0 - 2.0 % [facility] Eosinophils (Bld) [#/Vol] 0.1 10*3/uL 0.0 - 0.5 10*3/uL [facility] Eosinophils/100 WBC (Bld) 0.8 % 0.0 - 6.0 % [facility] Erythrocyte distribution width (RBC) [Ratio] 14.3 % 11.5 - 15.0 % [facility] Hematocrit (Bld) [Volume fraction] 35.6 % Male: 40.0-52.0 ; Female: 35.0-47.0 [facility] Hemoglobin (Bld) [Mass/Vol] 11.3 g/dL Low 11.7 - 18.0 g/dL [facility] Immature granulocytes (Bld) [#/Vol] 0.1 10*3/uL High NINF - 0.1 10*3/uL [facility] Immature granulocytes/100 WBC (Bld) 0.7 % 0.0 - 2.0 % [facility] Interpretation and review of laboratory results Abnormal [facility] Lymphocytes (Bld) [#/Vol] 1.4 10*3/uL 1.0 - 4.3 10*3/uL [facility] Lymphocytes/100 WBC (Bld) 14.3 % Low 15.0 - 45.0 % [facility] MCH (RBC) [Entitic mass] 27.5 pg 26.0 - 34.[address] [facility] MCHC (RBC) [Mass/Vol] 31.7 % 30.5 - 36.0 % [facility] MCV (RBC) [Entitic vol] 86.6 fL 77.0 - 99.0 fL [facility] Monocytes (Bld) [#/Vol] 0.6 10*3/uL 0.0 - 0.9 10*3/uL [facility] Monocytes/100 WBC (Bld) 5.9 % 5.0 - 13.0 % [facility] Neutrophils (Bld) [#/Vol] 7.8 10*3/uL High 1.8 - 7.5 10*3/uL [facility] Neutrophils/100 WBC (Bld) 77.8 % 38.0 - 82.0 % [facility] Nucleated RBC/100 WBC (Bld) [Ratio] 0.0 % [facility] Platelet mean volume (Bld) [Entitic vol] 10.3 fL 9.0 - 12.7 fL [email or web address] Platelets (Bld) [#/Vol] 511 10*3/uL High 140 - 440 10*3/uL [email or web address] RBC (Bld) [#/Vol] 4.11 10*6/uL Male: 4.40-5.90; Female: 3.80-5.20 [email or web address] WBC (Bld) [#/Vol] 10.0 10*3/uL 3.6 - 10.7 10*3/uL [facility] Abdomen and Pelvis W cont rast Eirca 01-22-2024 Questionable enhance ment of the bilateral [...] MD Electronically Signed Date/Time: 01/22/2024 4:54 AM [facility] Patient Name: WILL ALVARADO : 1965 Exam Date/Time: 01/22/2024 04:15 Procedure: [...] No evidence of acute fracture or dislocation. [facility] Brandon Morgan MD - 01/22/2024 [...] Electronically Signed Date/Time: 01/22/2024 4:[address] [facility] Radiology Study observation (narrative) [email or web address] CT Abdomen and Pelvis W cont rast IVOrdered By: Brandon Morgan on 01-22-2024 [email or web address] Work Phone: Comprehensive metabolic 1998 panelon 01-22-2024 Albumin [Mass/Vol] 4.2 g/dL 3.5 - 5.0 g/dL [email or web address] ALP [Catalytic activity/Vol] 121 U/L 38 - 126 U/L [facility] ALT [Catalytic activity/Vol] 32 U/L Male: 0-49 U/L; Female: 0-34 U/L [email or web address] Anion gap [Moles/Vol] 11 mmol/L 3 - 13 mmol/L [facility] AST [Catalytic activity/Vol] 26 U/L 15 - 46 U/L [facility] Bilirubin [Mass/Vol] 0.5 mg/dL 0.2 - 1 .3 mg/dL [email or web address] Calcium [Mass/Vol] 9.6 mg/dL 8.4 - 10. 4 mg/dL [email or web address] Chloride [Moles/Vol] 100 mmol/L 98 - 10 7 mmol/L [email or web address] CO2 [Moles/Vol] 25 mmol/L 22 - 30 mmol/L [facility] Creatinine [Mass/Vol] 0.61 mg/dL Male: 0.66-1.25 mg/dL; Female: 0.52-1.04 mg/dL [facility] GFR/1.73 sq M.predicted MDRD (S/P/Bld) [Vol rate/Area] - PINF [facility] Comment on above: Calculation based on the Chronic Kidney Disease Epidemiology Collaboration (CKD-EPI) equation refit without adjustment for race Glucose [Mass/Vol] 81 mg/dL 70 - 100 mg/dL [facility] Potassium [Moles/Vol] 4.0 mmol/L 3.5 - 5.1 mmol/L [facility] Protein [Mass/Vol] 7.5 g/dL 6.3 - 8.2 g/dL [facility] Sodium [Moles/Vol] 136 mmol/L 135 - 145 mmol/L [facility] Urea nitrogen [Mass/Vol] 13 mg/dL Male: 9-20 mg/dL; Female: 7-17 mg/dL [facility] Laboratory - Chemistry and C hemistry - challengeon 01-22-2024 Lactate [Moles/Vol] 0.7 mmol/L 0.7 - 2. 0 mmol/L [facility] Lipase [Catalytic activity/Vol] 41 U/L 23 - 300 U/L [facility] Lipase [Catalytic activity/V ol]on 01-22-2024 Interpretation and review of laboratory results Normal [facility] No Panel Informationon 01-21 Interpretation and review of laboratory results Normal [facility] Urinalysis complete panel (U )Ordered By: Erickson Olmedo on 01-22-2024 Bacteria LM.HPF (Urine sed) [#/Area] Few Abnormal Negative /HPF [facility] Bilirubin Ql (U) Negative Negative mg/dL [facility] Clarity (U) Clear Clear [facility] Color (U) Light Yellow Lt. Yellow [facility] Epithelial cells.squamous LM.HPF (Urine sed) [#/Area] 0-2 [facility] Glucose Ql (U) Normal Normal (<70) mg/dL [facility] Hemoglobin Ql (U) 1.0 mg/dL Abnormal Negative [facility] Interpretation and review of laboratory results Abnormal [facility] Ketones (U) [Mass/Vol] Negative Negat bernard mg/dL [facility] Leukocyte esterase Test strip Ql (U) 75 Abnormal Negative Kat/uL [facility] Mucus LM.HPF (Urine sed) [#/Area] Few Negative /LPF [facility] Nitrite Ql (U) Negative Negative [facility] pH (U) 8.0 [pH] 5.0 - 8.[address] [facility] Protein (U) [Mass/Vol] 100 mg/dL Abnormal Negative [facility] RBC LM.HPF (Urine sed) [#/Area] 26-[address] [facility] Specific gravity (U) [Rel density] 1.013 1.005 - 1.030 [facility] Urobilinogen (U) [Mass/Vol] Normal Normal (0-1) mg/dL [facility] WBC LM.HPF (Urine sed) [#/Area] 6-10 Abnormal [facility] Basophil percentageOrdered B y: Jared Guzman on 01-20-2024 Chloride [Moles/Vol] 104 mmol/L 98-107 [facility] Glucose [Mass/Vol] 159 mg/dL 74-106 [facility] Comment on above: Fasting Glucose resu lt greater than or equal to 126 mg/dL suggests DIABETES MELLITUS per A.D.A. criteria. Hemoglobin (Bld) [Mass/Vol] 9.6 g/dL 12.0-15.0 [facility] Potassium [Moles/Vol] 4.2 mmol/L 3.5-5.1 [facility] Sodium [Moles/Vol] 137 mmol/L 136-145 [facility] WBC (Bld) [#/Vol] 7.7 10*3/uL 4.4-11.0 [facility] Determination of erythrocyte mean corpuscular volume (MCV)Ordered By: Jared Guzman on 01-20-2024 MCV (RBC) [Entitic vol] 88.3 fL 81-99 [facility] Erythrocyte distribution wid th ratioOrdered By: Jared Guzman on 01-20-2024 Erythrocyte distribution width (RBC) [Ratio] 14.5 % 11.6-14.6 [facility] Erythrocyte distribution wid th standard deviationOrdered By: Jared Guzman on 01-20-2024 Erythrocyte distribution width (RBC) [Entitic vol] 46.4 fL 35.1-43.9 [facility] Hematocrit Auto (Bld) [Volum e fraction]Ordered By: Jared Guzman on 01-20-2024 Hematocrit (Bld) [Volume fraction] 30.9 % 37-47 [facility] - Chemistry and C hemistry - challengeOrdered By: Jared Guzman on 01-20-2024 CO2 [Moles/Vol] 26.0 mmol/L 21.0-32.0 [facility] Urea nitrogen/Creatinine [Mass ratio] 17.5 mg/mg 10-20 [facility] - Hematology and Cell countsOrdered By: Jared Guzman on 01-20-2024 MCH (RBC) [Entitic mass] 27.4 pg 27.0-32.0 [facility] MCHC (RBC) [Mass/Vol] 31.1 g/dL 32-36 [facility] Platelet mean volume (Bld) [Entitic vol] 10.0 fL 6.2-12.0 [facility] Platelets (Bld) [#/Vol] 411 10*3/uL 150-450 [facility] No Panel InformationOrdered By: Jared Guzman on 01-20-2024 Estimated GFR (MDRD) Amer 95 mL/min >60 [facility] Comment on above: GFR Calc Estimated GFR (MDRD) Non-Af Amer 78 mL/min >60 [facility] Comment on above: Non- GFR Calc RBC Auto (Bld) [#/Vol]Ordere d By: Jared Guzman on 01-20-2024 RBC (Bld) [#/Vol] 3.50 10*6/uL 4.2-5.4 [facility] Serum or plasma calcium mauricio urement (mass/volume)Ordered By: Jared Guzman on 01-20-2024 Calcium [Mass/Vol] 8.8 mg/dL 8.5-10.1 [facility] Serum or plasma creatinine m easurement (mass/volume)Ordered By: Jared Guzman on 01-20-2024 Creatinine [Mass/Vol] 0.80 mg/dL 0.55-1.02 [facility] Comment on above: The validity of the calculated GFR & GFRAA in patients over 70 years has not been determined. Clinical correlation is essential. Serum or plasma urea nitroge n measurement (mass/volume)Ordered By: Jared Guzman on 01-20-2024 Urea nitrogen [Mass/Vol] 14 mg/dL 7-18 [facility] Thin prep Papanicolaou smear with manual screeningOrdered By: Jared Guzman on 01-20-2024 Thin prep Papanicolaou smear with manual screening 7 5-15 [facility] Basophil percentageOrdered B y: Jared Guzman on 01-17-2024 Bilirubin [Mass/Vol] 0.50 mg/dL 0.20-1.00 [facility] Comment on above: For patients on eltr ombopag therapy, use of Dimension [place] TBIL is not recommended. Chloride [Moles/Vol] 102 mmol/L 98-107 [facility] Glucose [Mass/Vol] 325 mg/dL 74-106 [facility] Comment on above: Glucose result great er than or equal to 200 mg/dLsuggests DIABETES MELLITUS per A.D.A. criteria. Hemoglobin (Bld) [Mass/Vol] 9.7 g/dL 12.0-15.0 [facility] Potassium [Moles/Vol] 4.4 mmol/L 3.5-5.1 [facility] Protein [Mass/Vol] 6.2 g/dL 6.4-8.2 [facility] Sodium [Moles/Vol] 134 mmol/L 136-145 [facility] WBC (Bld) [#/Vol] 7.1 10*3/uL 4.4-11.0 [facility] Determination of erythrocyte mean corpuscular volume (MCV)Ordered By: Jared Guzman on 01-17-2024 MCV (RBC) [Entitic vol] 88.0 fL 81-99 [facility] Erythrocyte distribution wid th ratioOrdered By: Jared Guzman on 01-17-2024 Erythrocyte distribution width (RBC) [Ratio] 14.2 % 11.6-14.6 [facility] Erythrocyte distribution wid th standard deviationOrdered By: Jared Guzman on 01-17-2024 Erythrocyte distribution width (RBC) [Entitic vol] 45.7 fL 35.1-43.9 [facility] Hematocrit Auto (Bld) [Volum e fraction]Ordered By: Jared Guzman on 01-17-2024 Hematocrit (Bld) [Volume fraction] 31.5 % 37-47 [facility] - Chemistry and C hemistry - challengeOrdered By: Jared Guzman on 01-17-2024 Albumin/Globulin [Mass ratio] 0.9 {ratio} 0.9-2.4 [facility] ALP [Catalytic activity/Vol] 142 U/L 45-117 [facility] ALT [Catalytic activity/Vol] 22 U/L 13-56 [facility] CO2 [Moles/Vol] 24.0 mmol/L 21.0-32.0 [facility] Globulin (S) [Mass/Vol] 3.3 g/dL 2.2-4.2 [facility] Urea nitrogen/Creatinine [Mass ratio] 19.2 mg/mg 10-20 [facility] - Hematology and Cell countsOrdered By: Jared Guzman on 01-17-2024 MCH (RBC) [Entitic mass] 27.1 pg 27.0-32.0 [facility] MCHC (RBC) [Mass/Vol] 30.8 g/dL 32-36 [facility] Platelet mean volume (Bld) [Entitic vol] 10.5 fL 6.2-12.0 [facility] Platelets (Bld) [#/Vol] 372 10*3/uL 150-450 [facility] No Panel InformationOrdered By: Jared Guzman on 01-17-2024 Estimated GFR (MDRD) Amer 85 mL/min >60 [facility] Comment on above: GFR Calc Estimated GFR (MDRD) Non-Af Amer 70 mL/min >60 [facility] Comment on above: Non- GFR Calc RBC Auto (Bld) [#/Vol]Ordere d By: Jared Guzman on 01-17-2024 RBC (Bld) [#/Vol] 3.58 10*6/uL 4.2-5.4 [facility] Serum or plasma calcium mauricio urement (mass/volume)Ordered By: Jared Guzman on 01-17-2024 Calcium [Mass/Vol] 8.6 mg/dL 8.5-10.1 [facility] Serum or plasma creatinine m easurement (mass/volume)Ordered By: Jared Guzman on 01-17-2024 Creatinine [Mass/Vol] 0.88 mg/dL 0.55-1.02 [facility] Comment on above: The validity of the calculated GFR & GFRAA in patients over 70 years has not been determined. Clinical correlation is essential. Serum or plasma urea nitroge n measurement (mass/volume)Ordered By: Jared Guzman on 01-17-2024 Urea nitrogen [Mass/Vol] 17 mg/dL 7-18 [facility] Thin prep Papanicolaou smear with manual screeningOrdered By: Jared Guzman on 01-17-2024 Thin prep Papanicolaou smear with manual screening 2.9 g/dL 3.2-5.0 [facility] Thin prep Papanicolaou smear with manual screening 13 U/L 15-37 [facility] Thin prep Papanicolaou smear with manual screening 8 5-15 [facility] Whole blood hemoglobin A1c/t otal hemoglobin ratio (mass fraction)Ordered By: Jared Guzman on 01-17-2024 HbA1c (Bld) [Mass fraction] 8.1 % 3.8-5.6 [facility] Comment on above: Normal < 5.7 % Predi abetic 5.7 - 6.4 % Diabetic >or= 6.5 % Please note range changes. Basophil percentageOrdered B y: Jared Guzman on 01-13-2024 Chloride [Moles/Vol] 107 mmol/L 98-107 [facility] Cholesterol [Mass/Vol] 147 mg/dL <[address] [facility] Comment on above: <200 mg/dL Desirable 200-240 mg/dL Borderline >240 mg/dL High Risk Glucose [Mass/Vol] 72 mg/dL 74-106 [facility] Hemoglobin (Bld) [Mass/Vol] 9.4 g/dL 12.0-15.0 [facility] Potassium [Moles/Vol] 3.9 mmol/L 3.5-5.1 [facility] Sodium [Moles/Vol] 141 mmol/L 136-145 [facility] Triglyceride [Mass/Vol] 137 mg/dL <199 [facility] Comment on above: The drugs N-Acetylcy steine and Metamizole may falsely depress this assay.Serum Triglycerides Reference Interval Normal <150 mg/dL Borderline high 150 - 199 mg/dL High 200 - 499 mg/dL Very High > or = 500 mg/dL WBC (Bld) [#/Vol] 7.1 10*3/uL 4.4-11.0 [facility] Determination of erythrocyte mean corpuscular volume (MCV)Ordered By: Jared Guzman on 01-13-2024 MCV (RBC) [Entitic vol] 87.4 fL 81-99 [facility] Erythrocyte distribution wid th ratioOrdered By: Jared Guzman on 01-13-2024 Erythrocyte distribution width (RBC) [Ratio] 14.6 % 11.6-14.6 [facility] Erythrocyte distribution wid th standard deviationOrdered By: Jared Guzman on 01-13-2024 Erythrocyte distribution width (RBC) [Entitic vol] 46.7 fL 35.1-43.9 [facility] Hematocrit Auto (Bld) [Volum e fraction]Ordered By: Jared Guzman on 01-13-2024 Hematocrit (Bld) [Volume fraction] 29.9 % 37-47 [facility] - Chemistry and C hemistry - challengeOrdered By: Jared Guzman on 01-13-2024 Cholesterol in HDL [Mass/Vol] 37 mg/dL >40 [facility] Comment on above: The drugs N-Acetylcy steine and Metamizole may falsely depress this assay. Reference Range HDL <40 mg/dL Low HDL Cholesterol HDL >or= 60 mg/dL High HDL Cholesterol Cholesterol in LDL [Mass/Vol] 83 mg/dL 0-130 [facility] CO2 [Moles/Vol] 26.0 mmol/L 21.0-32.0 [facility] Urea nitrogen/Creatinine [Mass ratio] 30.8 mg/mg 10-20 [facility] - Hematology and Cell countsOrdered By: Jared Guzman on 01-13-2024 MCH (RBC) [Entitic mass] 27.5 pg 27.0-32.0 [facility] MCHC (RBC) [Mass/Vol] 31.4 g/dL 32-36 [facility] Platelet mean volume (Bld) [Entitic vol] 9.8 fL 6.2-12.0 [facility] Platelets (Bld) [#/Vol] 380 10*3/uL 150-450 [facility] No Panel InformationOrdered By: Jared Guzman on 01-13-2024 Estimated GFR (MDRD) Amer 129 mL/min >60 [facility] Comment on above: GFR Calc Estimated GFR (MDRD) Non-Af Amer 106 mL/min >60 [facility] Comment on above: Non- GFR Calc VLDL Cholesterol 27 mg/dL 5-40 [facility] RBC Auto (Bld) [#/Vol]Ordere d By: Jared Guzman on 01-13-2024 RBC (Bld) [#/Vol] 3.42 10*6/uL 4.2-5.4 [facility] Serum or plasma calcium mauricio urement (mass/volume)Ordered By: Jared Guzman on 01-13-2024 Calcium [Mass/Vol] 8.7 mg/dL 8.5-10.1 [facility] Serum or plasma creatinine m easurement (mass/volume)Ordered By: Jared Guzman on 01-13-2024 Creatinine [Mass/Vol] 0.62 mg/dL 0.55-1.02 [facility] Comment on above: The validity of the calculated GFR & GFRAA in patients over 70 years has not been determined. Clinical correlation is essential. Serum or plasma urea nitroge n measurement (mass/volume)Ordered By: Jared Guzman on 01-13-2024 Urea nitrogen [Mass/Vol] 19 mg/dL 7-18 [facility] Thin prep Papanicolaou smear with manual screeningOrdered By: Jared Guzman on 01-13-2024 Thin prep Papanicolaou smear with manual screening 8 5-15 [facility] Basophil percentageOrdered B y: Jared Guzman on 12-31-2023 Chloride [Moles/Vol] 101 mmol/L 98-107 [facility] Glucose [Mass/Vol] 87 mg/dL 74-106 [facility] Hemoglobin (Bld) [Mass/Vol] 10.1 g/dL 12.0-15.0 [facility] Potassium [Moles/Vol] 4.8 mmol/L 3.5-5.1 [facility] Sodium [Moles/Vol] 133 mmol/L 136-145 [facility] WBC (Bld) [#/Vol] 11.6 10*3/uL 4.4-11.0 [facility] Determination of erythrocyte mean corpuscular volume (MCV)Ordered By: Jared Guzman on 12-31-2023 MCV (RBC) [Entitic vol] 87.8 fL 81-99 [facility] Erythrocyte distribution wid th ratioOrdered By: Jared Guzman on 12-31-2023 Erythrocyte distribution width (RBC) [Ratio] 14.1 % 11.6-14.6 [facility] Erythrocyte distribution wid th standard deviationOrdered By: Jared Guzman on 12-31-2023 Erythrocyte distribution width (RBC) [Entitic vol] 45.6 fL 35.1-43.9 [facility] Hematocrit Auto (Bld) [Volum e fraction]Ordered By: Jared Guzman on 12-31-2023 Hematocrit (Bld) [Volume fraction] 32.5 % 37-47 [facility] - Chemistry and C hemistry - challengeOrdered By: Jared Guzman on 12-31-2023 CO2 [Moles/Vol] 24.0 mmol/L 21.0-32.0 [facility] Urea nitrogen/Creatinine [Mass ratio] 12.1 mg/mg 10-20 [facility] - Hematology and Cell countsOrdered By: Jared Guzman on 12-31-2023 MCH (RBC) [Entitic mass] 27.3 pg 27.0-32.0 [facility] MCHC (RBC) [Mass/Vol] 31.1 g/dL 32-36 [facility] [facility] Platelet mean volume (Bld) [Entitic vol] 10.1 fL 6.2-12.0 [facility] Platelets (Bld) [#/Vol] 413 10*3/uL 150-450 [facility] No Panel InformationOrdered By: Jared Guzman on 12-31-2023 Estimated GFR (MDRD) Amer 16 mL/min >60 [facility] Comment on above: GFR Calc Estimated GFR (MDRD) Non-Af Amer 13 mL/min >60 [facility] Comment on above: Non- GFR Calc RBC Auto (Bld) [#/Vol]Ordere d By: Jared Guzman on 12-31-2023 RBC (Bld) [#/Vol] 3.70 10*6/uL 4.2-5.4 [facility] Serum or plasma calcium mauricio urement (mass/volume)Ordered By: Jared Guzman on 12-31-2023 Calcium [Mass/Vol] 8.9 mg/dL 8.5-10.1 [facility] Serum or plasma creatinine m easurement (mass/volume)Ordered By: Jared Guzman on 12-31-2023 Creatinine [Mass/Vol] 3.80 mg/dL 0.55-1.02 [facility] Comment on above: The validity of the calculated GFR & GFRAA in patients over 70 years has not been determined. Clinical correlation is essential. Serum or plasma urea nitroge n measurement (mass/volume)Ordered By: Jared Guzman on 12-31-2023 Urea nitrogen [Mass/Vol] 46 mg/dL 7-18 [facility] Thin prep Papanicolaou smear with manual screeningOrdered By: Jared Guzman on 12-31-2023 Thin prep Papanicolaou smear with manual screening 8 5-15 [facility] Basophil percentageOrdered B y: Jared Guzman on 12-30-2023 Chloride [Moles/Vol] 103 mmol/L 98-107 [facility] Glucose [Mass/Vol] 116 mg/dL 74-106 [facility] Comment on above: Fasting Glucose resu lt from 100 to 125 mg/dL suggests IMPAIRED HOMEOSTASIS per A.D.A. criteria. Hemoglobin (Bld) [Mass/Vol] 10.6 g/dL 12.0-15.0 [facility] Potassium [Moles/Vol] 4.4 mmol/L 3.5-5.1 [facility] Sodium [Moles/Vol] 133 mmol/L 136-145 [facility] WBC (Bld) [#/Vol] 13.1 10*3/uL 4.4-11.0 [facility] Determination of erythrocyte mean corpuscular volume (MCV)Ordered By: Jared Guzman on 12-30-2023 MCV (RBC) [Entitic vol] 86.8 fL 81-99 [facility] Erythrocyte distribution wid th ratioOrdered By: Jared Guzman on 12-30-2023 Erythrocyte distribution width (RBC) [Ratio] 13.6 % 11.6-14.6 [facility] Erythrocyte distribution wid th standard deviationOrdered By: Jared Guzman on 12-30-2023 Erythrocyte distribution width (RBC) [Entitic vol] 43.0 fL 35.1-43.9 [facility] Hematocrit Auto (Bld) [Volum e fraction]Ordered By: Jared Guzman on 12-30-2023 Hematocrit (Bld) [Volume fraction] 34.2 % 37-47 [facility] Laboratory - Chemistry and C hemistry - challengeOrdered By: Jared Guzman on 12-30-2023 CO2 [Moles/Vol] 24.0 mmol/L 21.0-32.0 [facility] Urea nitrogen/Creatinine [Mass ratio] 19.3 mg/mg 10-20 [facility] Laboratory - Hematology and Cell countsOrdered By: Jared Guzman on 12-30-2023 MCH (RBC) [Entitic mass] 26.9 pg 27.0-32.0 [facility] MCHC (RBC) [Mass/Vol] 31.0 g/dL 32-36 [facility] Platelet mean volume (Bld) [Entitic vol] 10.3 fL 6.2-12.0 [facility] Platelets (Bld) [#/Vol] 434 10*3/uL 150-450 [facility] No Panel InformationOrdered By: Jared Guzman on 12-30-2023 Estimated GFR (MDRD) Amer 42 mL/min >60 [facility] Comment on above: GFR Calc Estimated GFR (MDRD) Non-Af Amer 35 mL/min >60 [facility] Comment on above: Non- GFR Calc RBC Auto (Bld) [#/Vol]Ordere d By: Jared Guzman on 12-30-2023 RBC (Bld) [#/Vol] 3.94 10*6/uL 4.2-5.4 [facility] Serum or plasma calcium mauricio urement (mass/volume)Ordered By: Jared Guzman on 12-30-2023 Calcium [Mass/Vol] 9.4 mg/dL 8.5-10.1 [facility] Serum or plasma creatinine m easurement (mass/volume)Ordered By: Jared Guzman on 12-30-2023 Creatinine [Mass/Vol] 1.61 mg/dL 0.55-1.02 [facility] Comment on above: The validity of the calculated GFR & GFRAA in patients over 70 years has not been determined. Clinical correlation is essential. Serum or plasma urea nitroge n measurement (mass/volume)Ordered By: Jared Guzman on 12-30-2023 Urea nitrogen [Mass/Vol] 31 mg/dL 7-18 [facility] Thin prep Papanicolaou smear with manual screeningOrdered By: Jared Guzman on 12-30-2023 Thin prep Papanicolaou smear with manual screening 6 5-15 [facility] Basic metabolic 1998 panelon 12-29-2023 Anion gap [Moles/Vol] 8 mmol/L 3 - 13 mmol/L [facility] Calcium [Mass/Vol] 9.2 mg/dL 8.4 - 10. 4 mg/dL [facility] Chloride [Moles/Vol] 99 mmol/L 98 - 10 7 mmol/L [facility] CO2 [Moles/Vol] 21 mmol/L Low 22 - 30 mmol/L [facility] Creatinine [Mass/Vol] 0.70 mg/dL Male: 0.66-1.25 mg/dL; Female: 0.52-1.04 mg/dL [facility] GFR/1.73 sq M.predicted MDRD (S/P/Bld) [Vol rate/Area] - [facility] Comment on above: Calculation based on the Chronic Kidney Disease Epidemiology Collaboration (CKD-EPI) equation refit without adjustment for race Glucose [Mass/Vol] 341 mg/dL High 70 - 100 mg/dL [facility] Interpretation and review of laboratory results Abnormal [facility] Potassium [Moles/Vol] 5.3 mmol/L High 3.5 - 5.1 mmol/L [facility] Sodium [Moles/Vol] 128 mmol/L Low 135 - 145 mmol/L [facility] Urea nitrogen [Mass/Vol] 28 mg/dL Male: 9-20 mg/dL; Female: 7-17 mg/dL [facility] Basic metabolic 1997 panelOr dered By: Abner Vieyra on 12-29-2023 Anion gap [Moles/Vol] 7 mmol/L 3 - 13 mmol/L [facility] Calcium [Mass/Vol] 9.2 mg/dL 8.4 - 10. 4 mg/dL [facility] Chloride [Moles/Vol] 99 mmol/L 98 - 10 7 mmol/L [facility] CO2 [Moles/Vol] 23 mmol/L 22 - 30 mmol/L [facility] Creatinine [Mass/Vol] 0.79 mg/dL Male: 0.66-1.25 mg/dL; Female: 0.52-1.04 mg/dL [facility] GFR/1.73 sq M.predicted MDRD (S/P/Bld) [Vol rate/Area] 87.4 mL/min/{1.73_m2} - PINF [facility] Comment on above: Calculation based on the Chronic Kidney Disease Epidemiology Collaboration (CKD-EPI) equation refit without adjustment for race Glucose [Mass/Vol] 284 mg/dL High 70 - 100 mg/dL [facility] Interpretation and review of laboratory results Abnormal [facility] Potassium [Moles/Vol] 5.7 mmol/L High 3.5 - 5.1 mmol/L [facility] Sodium [Moles/Vol] 129 mmol/L Low 135 - 145 mmol/L [facility] Urea nitrogen [Mass/Vol] 36 mg/dL Male: 9-20 mg/dL; Female: 7-17 mg/dL [facility] CBC W Auto Differential pane l (Bld)Ordered By: Laney Rader on 12-29-2023 Basophils (Bld) [#/Vol] 0.1 10*3/uL 0.0 - 0.2 10*3/uL [facility] Basophils/100 WBC (Bld) 0.8 % 0.0 - 2.0 % [facility] Eosinophils (Bld) [#/Vol] 0.1 10*3/uL 0.0 - 0.5 10*3/uL [facility] Eosinophils/100 WBC (Bld) 0.7 % Low 1.0 - 6.0 % [facility] Erythrocyte distribution width (RBC) [Ratio] 14.5 % 11.5 - 14.5 % [facility] Hematocrit (Bld) [Volume fraction] 35.9 % Male: 40.0-52.0 %; Female: 35.0-47.0 % [facility] Hemoglobin (Bld) [Mass/Vol] 11.8 g/dL 11.7 - 18.0 g/dL [facility] Interpretation and review of laboratory results Abnormal [facility] Lymphocytes (Bld) [#/Vol] 1.6 10*3/uL 1.0 - 4.3 10*3/uL [facility] Lymphocytes/100 WBC (Bld) 12.3 % Low 20.0 - 40.0 % [facility] MCH (RBC) [Entitic mass] 27.4 pg 26.0 - 34.[address] [facility] MCHC (RBC) [Mass/Vol] 32.9 % 32.0 - 36.0 % [facility] MCV (RBC) [Entitic vol] 83.3 fL 80.0 - 98.[address] [facility] Monocytes (Bld) [#/Vol] 0.6 10*3/uL 0.0 - 0.8 10*3/uL [facility] Monocytes/100 WBC (Bld) 4.9 % 2.0 - 10.0 % [facility] Neutrophils (Bld) [#/Vol] 10.4 10*3/uL High 1.8 - 7.0 10*3/uL [facility] Neutrophils/100 WBC (Bld) 81.3 % High 40.0 - 80.0 % [facility] Nucleated RBC/100 WBC (Bld) [Ratio] 0.0 % [email or web address] Platelet mean volume (Bld) [Entitic vol] 7.9 fL 7.4 - 12.[address] [facility] Platelets (Bld) [#/Vol] 388 10*3/uL 140 - 440 10*3/uL [facility] RBC (Bld) [#/Vol] 4.31 10*6/uL Male: 4.40-5.90; Female: 3.80-5.20 [facility] WBC (Bld) [#/Vol] 12.8 10*3/uL High 3.6 - 10.7 10*3/uL [facility] Laboratory - Chemistry and C hemistry - challengeon 12-29-2023 Glucose [Mass/Vol] 319 mg/dL High 70 - 100 mg/dL [facility] Glucose [Mass/Vol] 346 mg/dL High 70 - 100 mg/dL [facility] Glucose [Mass/Vol] 279 mg/dL High 70 - 100 mg/dL [facility] Beta hydroxybutyrate [Mass/Vol] 6.84 mg/dL High 0.20 - 2.81 mg/dL [facility] No Panel Informationon 12-29 P [place] [address] [facility] [place] Interval [address] [facility] QRS [place] -[address] [facility] QRSD Interval [address] [facility] QT Interval [address] [facility] QTC Interval [address] [facility] T Wave [place] [address] [facility] Sinus rhythm Nonspecific IVCD with LAD Left ventricular hypertrophy Electronically Signed On 12-29-2023 06:52:01 EST by Edwin Bustos CV Edwin Cook MD - 12/29/2023 IMPRESSION: Sinus rhythm Nonspecific IVCD with LAD Left ventricular hypertrophy Electronically Signed On 12-29-2023 06:52:01 EST by Edwin Bustos [facility] Interpretation and review of laboratory results Abnormal [facility] Performed by: [facility], [address] [place] [id number] CLIA ID: [id number] [facility] Interpretation and review of laboratory results Abnormal [facility] Performed by: [facility], [address] [place] [id number] CLIA ID: [id number] [facility] Interpretation and review of laboratory results Abnormal [facility] Performed by: [facility], [address] [place] [id number] CLIA ID: [id number] [facility] Interpretation and review of laboratory results Abnormal [facility] Radiology Study observation (narrative) [facility] Radiology Study observation (narrative) [facility] Radiology Study observation (narrative) [facility] Vital signson 12-29-2023 Heart rate 80 /min bpm [facility] [place] Stomach Views for gastric emptying solid phase W radionuclide Jacob 12-23-2023 Abnormally delayed gastric emptying following solid meal. Report Dictated on Electronically Signed By: Edwin Paz MD Electronically Signed Date/Time: 12/23/2023 12:06 PM [facility] 1965 [id number] Exam Date/Time: 12/23/2023 11:45 Procedure: NM GASTRIC [...] ingestion is between 19 and 52 percent. [facility] Edwin Paz MD - 12/23/2023 Patient Name: [facility] 1965 [id number] Exam Date/Time: 12/23/2023 11:45 Procedure: NM GASTRIC [...] Electronically Signed Date/Time: 12/23/2023 12:[address] [facility] Radiology Study observation (narrative) [facility] [place] Stomach Views for gastric emptying solid phase W radionuclide POOrdered By: Edwin Paz on 12-23-2023 [facility] Basophil percentageOrdered B y: Jared Guzman on 12-22-2023 Chloride [Moles/Vol] 105 mmol/L 98-107 [facility] Glucose [Mass/Vol] 129 mg/dL 74-106 [facility] Comment on above: Fasting Glucose resu lt greater than or equal to 126 mg/dL suggests DIABETES MELLITUS per A.D.A. criteria. Hemoglobin (Bld) [Mass/Vol] 10.2 g/dL 12.0-15.0 [facility] Potassium [Moles/Vol] 4.8 mmol/L 3.5-5.1 [facility] Sodium [Moles/Vol] 136 mmol/L 136-145 [facility] WBC (Bld) [#/Vol] 9.4 10*3/uL 4.4-11.0 [facility] Determination of erythrocyte mean corpuscular volume (MCV)Ordered By: Jared Guzman on 12-22-2023 MCV (RBC) [Entitic vol] 85.8 fL 81-99 [facility] Erythrocyte distribution wid th ratioOrdered By: Jared Guzman on 12-22-2023 Erythrocyte distribution width (RBC) [Ratio] 13.6 % 11.6-14.6 [facility] Erythrocyte distribution wid th standard deviationOrdered By: Jared Guzman on 12-22-2023 Erythrocyte distribution width (RBC) [Entitic vol] 42.4 fL 35.1-43.9 [facility] Hematocrit Auto (Bld) [Volum e fraction]Ordered By: Jared Guzman on 12-22-2023 Hematocrit (Bld) [Volume fraction] 32.1 % 37-47 [facility] Laboratory - Chemistry and C hemistry - challengeOrdered By: Jared Guzman on 12-22-2023 CO2 [Moles/Vol] 25.0 mmol/L 21.0-32.0 [facility] Urea nitrogen/Creatinine [Mass ratio] 37.0 mg/mg 10-20 [facility] Laboratory - Hematology and Cell countsOrdered By: Jared Guzman on 12-22-2023 MCH (RBC) [Entitic mass] 27.3 pg 27.0-32.0 [facility] MCHC (RBC) [Mass/Vol] 31.8 g/dL 32-36 [facility] Platelet mean volume (Bld) [Entitic vol] 9.9 fL 6.2-12.0 [facility] Platelets (Bld) [#/Vol] 393 10*3/uL 150-450 [facility] No Panel InformationOrdered By: Jared Guzman on 12-22-2023 Estimated GFR (MDRD) Amer 78 mL/min >60 [facility] Comment on above: GFR Calc Estimated GFR (MDRD) Non-Af Amer 65 mL/min >60 [facility] Comment on above: Non- GFR Calc RBC Auto (Bld) [#/Vol]Ordere d By: Jared Guzman on 12-22-2023 RBC (Bld) [#/Vol] 3.74 10*6/uL 4.2-5.4 [facility] Serum or plasma calcium mauricio urement (mass/volume)Ordered By: Jared Guzman on 12-22-2023 Calcium [Mass/Vol] 9.1 mg/dL 8.5-10.1 [facility] Serum or plasma creatinine m easurement (mass/volume)Ordered By: Jared Guzman on 12-22-2023 Creatinine [Mass/Vol] 0.95 mg/dL 0.55-1.02 [facility] Comment on above: The validity of the calculated GFR & GFRAA in patients over 70 years has not been determined. Clinical correlation is essential. Serum or plasma urea nitroge n measurement (mass/volume)Ordered By: Jared Guzman on 12-22-2023 Urea nitrogen [Mass/Vol] 35 mg/dL 05-25 [facility] Thin prep Papanicolaou smear with manual screeningOrdered By: Jared Guzman on 12-22-2023 Thin prep Papanicolaou smear with manual screening 6 03-22 [facility] CBC W Auto Differential pane l (Bld)Ordered By: Erickson Olmedo on 12-09-2023 Basophils (Bld) [#/Vol] 0.1 10*3/uL 0.0 - 0.2 10*3/uL [email or web address] Basophils/100 WBC (Bld) 0.6 % 0.0 - 2.0 % [facility] Eosinophils (Bld) [#/Vol] 0.0 10*3/uL 0.0 - 0.5 10*3/uL [facility] Eosinophils/100 WBC (Bld) 0.1 % Low 1.0 - 6.0 % [facility] Erythrocyte distribution width (RBC) [Ratio] 14.5 % 11.5 - 14.5 % [email or web address] Hematocrit (Bld) [Volume fraction] 36.0 % Male: 40.0-52.0 %; Female: 35.0-47.0 % [email or web address] Hemoglobin (Bld) [Mass/Vol] 12.1 g/dL 11.7 - 18.0 g/dL [facility] Interpretation and review of laboratory results Abnormal [email or web address] [email or web address] Lymphocytes (Bld) [#/Vol] 1.0 10*3/uL 1.0 - 4.3 10*3/uL [facility] Lymphocytes/100 WBC (Bld) 9.5 % Low 20.0 - 40.0 % [facility] MCH (RBC) [Entitic mass] 28.1 pg 26.0 - 34.[address] [facility] MCHC (RBC) [Mass/Vol] 33.5 % 32.0 - 36.0 % [facility] MCV (RBC) [Entitic vol] 83.9 fL 80.0 - 98.[address] [facility] Monocytes (Bld) [#/Vol] 0.5 10*3/uL 0.0 - 0.8 10*3/uL [facility] Monocytes/100 WBC (Bld) 4.8 % 2.0 - 10.0 % [facility] Neutrophils (Bld) [#/Vol] 9.1 10*3/uL High 1.8 - 7.0 10*3/uL [facility] Neutrophils/100 WBC (Bld) 85.0 % High 40.0 - 80.0 % [facility] Nucleated RBC/100 WBC (Bld) [Ratio] 0.0 % [facility] Platelet mean volume (Bld) [Entitic vol] 8.0 fL 7.4 - 12.[address] [facility] Platelets (Bld) [#/Vol] 485 10*3/uL High 140 - 440 10*3/uL [facility] RBC (Bld) [#/Vol] 4.29 10*6/uL Male: 4.40-5.90; Female: 3.80-5.20 [facility] WBC (Bld) [#/Vol] 10.7 10*3/uL 3.6 - 10.7 10*3/uL [facility] Comprehensive metabolic 1998 panelon 12-09-2023 Albumin [Mass/Vol] 4.0 g/dL 3.5 - 5.0 g/dL [facility] ALP [Catalytic activity/Vol] 139 U/L High 38 - 126 U/L [facility] ALT [Catalytic activity/Vol] 29 U/L Male: 0-49 U/L; Female: 0-34 U/L [facility] Anion gap [Moles/Vol] 11 mmol/L 3 - 13 mmol/L [facility] AST [Catalytic activity/Vol] 25 U/L 15 - 46 U/L [facility] Bilirubin [Mass/Vol] 0.7 mg/dL 0.2 - 1 .3 mg/dL [facility] Calcium [Mass/Vol] 9.0 mg/dL 8.4 - 10. 4 mg/dL [facility] Chloride [Moles/Vol] 96 mmol/L Low 98 - 10 7 mmol/L [facility] CO2 [Moles/Vol] 24 mmol/L 22 - 30 mmol/L [facility] Creatinine [Mass/Vol] 0.76 mg/dL Male: 0.66-1.25 mg/dL; Female: 0.52-1.04 mg/dL [facility] GFR/1.73 sq M.predicted MDRD (S/P/Bld) [Vol rate/Area] - PINF [facility] Comment on above: Calculation based on the Chronic Kidney Disease Epidemiology Collaboration (CKD-EPI) equation refit without adjustment for race Glucose [Mass/Vol] 295 mg/dL High 70 - 100 mg/dL [facility] Interpretation and review of laboratory results Abnormal [facility] Potassium [Moles/Vol] 5.0 mmol/L 3.5 - 5.1 mmol/L [facility] Protein [Mass/Vol] 7.2 g/dL 6.3 - 8.2 g/dL [facility] Sodium [Moles/Vol] 132 mmol/L Low 135 - 145 mmol/L [facility] Urea nitrogen [Mass/Vol] 26 mg/dL Male: 9-20 mg/dL; Female: 7-17 mg/dL [facility] Laboratory - Chemistry and C hemistry - challengeon 12-09-2023 Troponin I.cardiac [Mass/Vol] ng/mL [facility] - 0.034 ng/mL [facility] Troponin I.cardiac [Mass/Vol] ng/mL [facility] - 0.034 ng/mL [facility] Beta hydroxybutyrate [Mass/Vol] 5.77 mg/dL High 0.20 - 2.81 mg/dL [facility] Lactate [Moles/Vol] 1.4 mmol/L 0.7 - 2. 0 mmol/L [facility] Lipase [Catalytic activity/Vol] 41 U/L 23 - 300 U/L [facility] Magnesium [Mass/Vol] 1.6 mg/dL 1.6 - 2 .3 mg/dL [facility] Base excess Calc (BldV) [Moles/Vol] -0.6000 mmol/L -3 - 3 mmol/L [facility] CO2 (BldV) [Partial pressure] 42.1 mm[Hg] [facility] HCO3 (Bld) [Moles/Vol] 24.7 mmol/L 23.0 - 27.0 mmol/L [facility] Oxygen (BldV) [Partial pressure] 34.1 mm[Hg] mm Hg [facility] pH (BldV) 7.377 [pH] 7.330 - 7.[address] [facility] Laboratory - Microbiology an d Antimicrobial susceptibilityon 12-09-2023 FLUAV RNA YASIR+probe Ql (Resp) Not detected Not Detected [facility] FLUBV RNA YASIR+probe Ql (Resp) Not detected Not Detected [facility] RSV RNA YASIR+probe Ql (Resp) Not detected Not Detected [facility] SARS-CoV-2 (COVID-19) RNA YASIR+probe Ql (Resp) Not detected Not Detected [facility] SARS-CoV-2 (COVID-19) RNA YASIR+probe Ql (Unsp spec) Methodology: real-time, RT-PCR The SARS-CoV-2, Flu A/B, and RSV Combo assay is intended for in vitro diagnostic use under the FDA Emergency Use Authorization (EUA). This test has not been FDA cleared or approved. In compliance with this authorization, please visit www.fda.gov/media/774044 /download or www.fda.gov/media/127144 /download to access the applicable information sheets. [facility] No Panel Informationon 12-09 Interpretation and review of laboratory results Abnormal [facility] P [place] [address] [facility] [place] Interval [address] [facility] QRS [place] -[address] [facility] QRSD Interval [address] [facility] QT Interval [address] [facility] QTC Interval [address] [facility] T Wave [place] [address] [facility] Caridad Evans MD - 12/09/2023 IMPRESSION: Sinus rhythm Abnormal R-wave progression, late transition Left ventricular hypertrophy No significant change compared to 08/17/2023 Electronically Signed On 12-09-2023 06:18:33 EST by Caridad Barnard [facility] Interpretation and review of laboratory results Normal [facility] Interpretation and review of laboratory results Normal [facility] FIO2 [facility] Performed by: [facility], [address] [place] [id number] CLIA ID: [id number] [facility] Radiology Study observation (narrative) [facility] SARS-CoV-2, Flu A/B, and RSV Comboon 12-09-2023 Interpretation and review of laboratory results Normal [facility] Troponin I.cardiac [Mass/Vol ]on 12-09-2023 Interpretation and review of laboratory results Normal [facility] Specimen slightly hemolyzed, interpret results with caution Patients with high levels of Biotin oral intake (ie >5 mg/day) may have falsely decreased Troponin levels. [facility] Interpretation and review of laboratory results Normal [facility] Patients with high levels of Biotin oral intake (ie >5 mg/day) may have falsely decreased Troponin levels. [facility] Urinalysis complete panel (U )Ordered By: Jackson Her on 12-09-2023 Bacteria LM.HPF (Urine sed) [#/Area] Few Abnormal Negative /HPF [facility] Bilirubin Ql (U) Negative Negative mg/dL [facility] Clarity (U) Clear Clear [facility] Color (U) Light Yellow Lt. Yellow [facility] Epithelial cells.squamous LM.HPF (Urine sed) [#/Area] 0-2 [facility] Glucose Ql (U) 500 mg/dL Abnormal Normal (<70) [facility] Hemoglobin Ql (U) 0.06 mg/dL Abnormal Negative [facility] Hyaline casts Auto (Urine sed) [#/Area] 0-2 Abnormal Negative /LPF [facility] Interpretation and review of laboratory results Abnormal [facility] Ketones (U) [Mass/Vol] 10 mg/dL Abnormal Negative [facility] Leukocyte esterase Test strip Ql (U) 25 Abnormal Negative Kat/uL [facility] Mucus LM.HPF (Urine sed) [#/Area] Few Negative /LPF [facility] Nitrite Ql (U) Negative Negative [facility] Non-Squamous Epithalial Cells, Urine 0-2 Abnormal Negative /HPF [facility] pH (U) 6.0 [pH] 5.0 - 8.[address] [facility] Protein (U) [Mass/Vol] 300 mg/dL Abnormal Negative [facility] RBC LM.HPF (Urine sed) [#/Area] 3-[address] [facility] Specific gravity (U) [Rel density] 1.021 1.005 - 1.030 [facility] Urobilinogen (U) [Mass/Vol] Normal Normal (0-1) mg/dL [facility] WBC LM.HPF (Urine sed) [#/Area] 6-10 Abnormal [facility] Vital signson 12-09-2023 Heart rate 87 /min bpm [facility] Oxygen saturation in Venous blood 64.1 % [facility] Comment on above: Performed by CLIA ID : [id number] [place], [place] ?Device: [id number] Rn Resource Nurse ID: [id number] XR Chest Single viewon 12-09 Left basilar atelect asis Report Dictated on Electronically Signed By: Sergio Muniz MD Electronically Signed Date/Time: 12/09/2023 6:11 AM EST [facility] Patient Name: WILL ALVARADO : [...] thoracic spine, likely diffuse idiopathic skeletal hyperostosis. [facility] Sergio Muniz MD - 12/09/2023 [...] Electronically Signed Date/Time: 12/09/2023 6:11 AM EST [email or web address] Radiology Study observation (narrative) [facility] XR Chest Single viewOrdered By: Sergio Muniz on 12-09-2023 [facility] Work Phone: Basophil percentageOrdered B y: Jared Guzman on 11-23-2023 Chloride [Moles/Vol] 106 mmol/L 98-107 [facility] Glucose [Mass/Vol] 212 mg/dL 74-106 [facility] Comment on above: Glucose result great er than or equal to 200 mg/dLsuggests DIABETES MELLITUS per A.D.A. criteria. Hemoglobin (Bld) [Mass/Vol] 10.5 g/dL 12.0-15.0 [facility] Potassium [Moles/Vol] 5.0 mmol/L 3.5-5.1 [facility] Sodium [Moles/Vol] 136 mmol/L 136-145 [facility] WBC (Bld) [#/Vol] 7.5 10*3/uL 4.4-11.0 [facility] Determination of erythrocyte mean corpuscular volume (MCV)Ordered By: Jared Guzman on 11-23-2023 MCV (RBC) [Entitic vol] 87.7 fL 81-99 [facility] Erythrocyte distribution wid th ratioOrdered By: Jared Guzman on 11-23-2023 Erythrocyte distribution width (RBC) [Ratio] 13.7 % 11.6-14.6 [facility] Erythrocyte distribution wid th standard deviationOrdered By: Jared Guzman on 11-23-2023 Erythrocyte distribution width (RBC) [Entitic vol] 43.8 fL 35.1-43.9 [facility] Hematocrit Auto (Bld) [Volum e fraction]Ordered By: Jared Guzman on 11-23-2023 Hematocrit (Bld) [Volume fraction] 33.4 % 37-47 [facility] Iron measurement (mass/mass) Ordered By: Jared Guzman on 11-23-2023 Iron (Unsp spec) [Mass/Mass] 53 ug/dL 50-170 [facility] Laboratory - Chemistry and C hemistry - challengeOrdered By: Jared Guzman on 11-23-2023 CO2 [Moles/Vol] 24.0 mmol/L 21.0-32.0 [facility] Cobalamin (Vitamin B12) [Mass/Vol] 298 pg/mL 211-911 [facility] Ferritin [Mass/Vol] 68 ng/mL 8-252 [facility] Urea nitrogen/Creatinine [Mass ratio] 26.1 mg/mg 10-20 [facility] Laboratory - Hematology and Cell countsOrdered By: Jared Guzman on 11-23-2023 MCH (RBC) [Entitic mass] 27.6 pg 27.0-32.0 [facility] MCHC (RBC) [Mass/Vol] 31.4 g/dL 32-36 [facility] Platelets (Bld) [#/Vol] 347 10*3/uL 150-450 [facility] No Panel InformationOrdered By: Jared Guzman on 11-23-2023 Estimated GFR (MDRD) Amer 94 mL/min >60 [facility] Comment on above: GFR Calc Estimated GFR (MDRD) Non-Af Amer 78 mL/min >60 [facility] Comment on above: Non- GFR Calc Total Iron Binding Capacity 274 ug/dL 250-450 [facility] Platelet mean volume Miquel-Ec ker (Bld) [Entitic vol]Ordered By: Jared Guzman on 11-23-2023 Platelet mean volume (Bld) [Entitic vol] 10.4 fL 6.2-12.0 [facility] RBC Auto (Bld) [#/Vol]Ordere d By: Jared Guzman on 11-23-2023 RBC (Bld) [#/Vol] 3.81 10*6/uL 4.2-5.4 [facility] Serum mitochondria antibody detectionOrdered By: Jared Guzman on 11-23-2023 Mitochondria Ab Ql (S) <20.0 Units 0.0-20.0 [facility] Comment on above: Negative 0.0 - 20.0 Equivocal 20.1 - 24.9 Positive >24.9Mitochondrial (M2) Antibodies are found in 90-96% ofpatients with primary biliary cirrhosis.Performed at: [facility] [address] [id number] Director: Kb Lopez PhD, Phone: [phone] Serum or plasma IgG measurem ent (mass/volume)Ordered By: Jared Guzman on 11-23-2023 IgG [Mass/Vol] 622 mg/dL [phone] [facility] Comment on above: Performed at: [facility] [address] [id number] Director: Kb Lopez PhD, Phone: [phone] Serum or plasma bone alkalin e phosphatase/total alkaline phosphatase ratio (catalyticOrdered By: Jared Guzman on 11-23-2023 ALP Bone [Catalytic fraction] 31 % 14-68 [facility] Serum or plasma calcium mauricio urement (mass/volume)Ordered By: Jared Guzman on 11-23-2023 Calcium [Mass/Vol] 9.0 mg/dL 8.5-10.1 [facility] Serum or plasma creatinine m easurement (mass/volume)Ordered By: Jared Guzman on 11-23-2023 Creatinine [Mass/Vol] 0.80 mg/dL 0.55-1.02 [facility] Comment on above: The validity of the calculated GFR & GFRAA in patients over 70 years has not been determined. Clinical correlation is essential. Serum or plasma intestinal a lkaline phosphatase/total alkaline phosphatase ratio (catOrdered By: Jared Guzman on 11-23-2023 ALP Intest [Catalytic fraction] 12 % 0-18 [facility] Serum or plasma liver alkali ne phosphatase/total alkaline phosphatase ratio (catalytiOrdered By: Jared Guzman on 11-23-2023 ALP Liver [Catalytic fraction] 57 % 18-85 [facility] Serum or plasma urea nitroge n measurement (mass/volume)Ordered By: Jared Guzman on 11-23-2023 Urea nitrogen [Mass/Vol] 21 mg/dL 7-18 [facility] Thin prep Papanicolaou smear with manual screeningOrdered By: Jared Guzman on 11-23-2023 Thin prep Papanicolaou smear with manual screening 6 5-15 [facility] Thin prep Papanicolaou smear with manual screening 127 IU/L 44-121 [facility] CNPNon 11-22-2023 CNPN Telephone (GSTNOR) -------- WILL JACINTO ([id number]) 1965 F Date Time Provider Department 11/22/23 [...] Nurse Nabil advised lab orders faxed to [phone]. Allergies As of Date: 11/22/2023 (No Known Allergies) Date Reviewed: 11/17/2023 Reviewed by: Elda Reaves PA-C - Fully Assessed Reason for Visit: Results [95] Primary Visit Diagnosis:Anemia, unspecified type [D64.9] Other Visit Diagnosis:Elevated alkaline phosphatase level [R74.8] Order(s):ALK PHOS ISOENZYM BL [SQALKISO] Order #: [id number] FUTURE MITOCHONDRIAL M2 IGG SERUM [SQMITOS] Order #: [id number] FUTURE IRON + TIBC [SQIRON] Order #: [id number] FUTURE FERRITIN BLD [SQFERR] Order #: [id number] FUTURE VITAMIN B12 BLOOD [SQB12] Order #: [id number] FUTURE Prescriptions as of 11/22/2023 - atorvastatin [...] Status:Closed by BELIA PARMAR on 11/22/23 Normal [facility] Absolute lymphocyte countOrd ered By: Jared Guzman on 11-18-2023 Lymphocytes Auto (Unsp spec) [#/Vol] 2.16 10*3/uL 0.83-4.51 [facility] Basophil percentageOrdered B y: Jared Guzman on 11-18-2023 Basophils/100 WBC (Bld) 0.8 % 0-1 [facility] Bilirubin [Mass/Vol] 0.40 mg/dL 0.20-1.00 [facility] Comment on above: For patients on eltr ombopag therapy, use of Dimension [place] TBIL is not recommended. Chloride [Moles/Vol] 104 mmol/L 98-107 [facility] Eosinophils/100 WBC (Bld) 2.3 % 0-5 [facility] Glucose [Mass/Vol] 211 mg/dL 74-106 [facility] Comment on above: Glucose result great er than or equal to 200 mg/dLsuggests DIABETES MELLITUS per A.D.A. criteria. Neutrophils (Bld) [#/Vol] 5.2 10*3/uL 2.0-7.7 [facility] Neutrophils/100 WBC (Bld) 62.4 % 47-70 [facility] Potassium [Moles/Vol] 4.9 mmol/L 3.5-5.1 [facility] Protein [Mass/Vol] 6.3 g/dL 6.4-8.2 [facility] Sodium [Moles/Vol] 136 mmol/L 136-145 [facility] WBC (Bld) [#/Vol] 8.4 10*3/uL 4.4-11.0 [facility] Blood erythrocytes count (nu mber/volume)Ordered By: Jared Guzman on 11-18-2023 RBC (Bld) [#/Vol] 3.93 10*6/uL 4.2-5.4 [facility] Blood hemoglobin measurement (mass/volume)Ordered By: Jared Guzman on 11-18-2023 Hemoglobin (Bld) [Mass/Vol] 10.7 g/dL 12.0-15.0 [facility] Blood lymphocytes/100 leukoc ytesOrdered By: Jared Guzman on 11-18-2023 Lymphocytes/100 WBC (Bld) 25.7 % 19-41 [facility] Blood monocytes/100 leukocyt esOrdered By: Jared Guzman on 11-18-2023 Monocytes/100 WBC (Bld) 7.5 % 0-10 [facility] Blood platelet mean volumeOr dered By: Jared Guzman on 11-18-2023 Platelet mean volume (Bld) [Entitic vol] 10.1 fL 6.2-12.0 [facility] Determination of erythrocyte mean corpuscular volume (MCV)Ordered By: Jared Guzman on 11-18-2023 MCV (RBC) [Entitic vol] 88.5 fL 81-99 [facility] Hematocrit Auto (Bld) [Volum e fraction]Ordered By: Jared Guzman on 11-18-2023 Hematocrit (Bld) [Volume fraction] 34.8 % 37-47 [facility] - Chemistry and C hemistry - challengeOrdered By: Jared Guzman on 11-18-2023 ALP [Catalytic activity/Vol] 155 U/L 45-117 [facility] ALT [Catalytic activity/Vol] 30 U/L 13-56 [facility] CO2 [Moles/Vol] 24.0 mmol/L 21.0-32.0 [facility] Globulin (S) [Mass/Vol] 3.5 g/dL 2.2-4.2 [facility] Lipase [Catalytic activity/Vol] 22 U/L 13-75 [facility] Comment on above: Please note:LIPASE r evised reference range effective 23. New Lipase methodology. Expected to produce lower values than the previous assay method. NEW Reference Range: 13 - 75 U/L Urea nitrogen/Creatinine [Mass ratio] 29.0 mg/mg 10-20 [facility] - Hematology and Cell countsOrdered By: Jared Guzman on 11-18-2023 Erythrocyte distribution width (RBC) [Entitic vol] 44.7 fL 35.1-43.9 [facility] Erythrocyte distribution width (RBC) [Ratio] 13.8 % 11.6-14.6 [facility] Immature granulocytes/100 WBC (Bld) 1.300 % 0.0-0.9 [facility] Comment on above: IG% - Immature Granu locytes (promyelocytes, myelocytes and metamyelocytes) > 1% indicates that a LEFT SHIFT is Present. MCH (RBC) [Entitic mass] 27.2 pg 27.0-32.0 [facility] Nucleated RBC/100 WBC (Bld) [Ratio] 0 % 0-5 [facility] MCHC Auto (RBC) [Mass/Vol]Or dered By: Jared Guzman on 11-18-2023 MCHC (RBC) [Mass/Vol] 30.7 g/dL 32-36 [facility] No Panel InformationOrdered By: Jared Guzman on 11-18-2023 Endomysial IgA Antibody Negative Negative [facility] Estimated GFR (MDRD) Amer 87 mL/min >60 [facility] Comment on above: GFR Calc Estimated GFR (MDRD) Non-Af Amer 72 mL/min >60 [facility] Comment on above: Non- GFR Calc Platelets bldOrdered By: Mike Guzman on 11-18-2023 Platelets (Bld) [#/Vol] 340 10*3/uL 150-450 [facility] Serum IgA measurement (units /volume)Ordered By: Jared Guzman on 11-18-2023 IgA Qn (S) 224 mg/dL 87-352 [facility] Comment on above: Performed at: [facility] [address] [id number] Director: Kb Lopez PhD, Phone: [phone] Serum or plasma albumin mauricio urement (mass/volume)Ordered By: Jared Guzman on 11-18-2023 Albumin [Mass/Vol] 2.8 g/dL 3.2-5.0 [facility] Serum or plasma albumin/glob ulin mass ratioOrdered By: Jared Guzman on 11-18-2023 Albumin/Globulin [Mass ratio] 0.8 {ratio} 0.9-2.4 [facility] Serum or plasma calcium mauricio urement (mass/volume)Ordered By: Jared Guzman on 11-18-2023 Calcium [Mass/Vol] 9.2 mg/dL 8.5-10.1 [facility] Serum or plasma creatinine m easurement (mass/volume)Ordered By: Jared Guzman on 11-18-2023 Creatinine [Mass/Vol] 0.86 mg/dL 0.55-1.02 [facility] Comment on above: The validity of the calculated GFR & GFRAA in patients over 70 years has not been determined. Clinical correlation is essential. Serum or plasma urea nitroge n measurement (mass/volume)Ordered By: Jared Guzman on 11-18-2023 Urea nitrogen [Mass/Vol] 25 mg/dL 7-18 [facility] Serum tissue transglutaminas e IgA antibody assay (units/volume)Ordered By: Jared Guzman on 11-18-2023 tTG IgA Qn (S) <2 U/mL 0-3 [facility] Comment on above: Negative 0 - 3 Weak Positive 4 - 10 Positive >10 Tissue Transglutaminase (tTG) has been identified as the endomysial antigen. Studies have demonstr- ated that endomysial IgA antibodies have over 99% specificity for gluten sensitive enteropathy. Thin prep Papanicolaou smear with manual screeningOrdered By: Jared Guzman on 11-18-2023 Thin prep Papanicolaou smear with manual screening 11 U/L 15-37 [facility] Thin prep Papanicolaou smear with manual screening 8 5-15 [facility] CNOVon 11-17-2023 CNOV Office Visit (GSTNOR ) -------- WILL JACINTO ([id number]) 1965 F Date Time Provider Department 11/17/23 [...] Vomiting. On Protonix 40 mg daily. Recent [facility] admission 2/2 complications from DM, hypoglycemia, [...] bedtime. No (more content not included)... Normal [facility] Absolute lymphocyte countOrd ered By: Jared Guzman on 10-26-2023 Lymphocytes Auto (Unsp spec) [#/Vol] 1.95 10*3/uL 0.83-4.51 [facility] Basophil percentageOrdered B y: Jared Guzman on 10-26-2023 Basophils/100 WBC (Bld) 0.5 % 0-1 [facility] Chloride [Moles/Vol] 107 mmol/L 98-107 [facility] Eosinophils/100 WBC (Bld) 3.4 % 0-5 [facility] Glucose [Mass/Vol] 279 mg/dL 74-106 [facility] Comment on above: Glucose result great er than or equal to 200 mg/dLsuggests DIABETES MELLITUS per A.D.A. criteria. Neutrophils (Bld) [#/Vol] 3.6 10*3/uL 2.0-7.7 [facility] Neutrophils/100 WBC (Bld) 57.8 % 47-70 [facility] Potassium [Moles/Vol] 4.9 mmol/L 3.5-5.1 [facility] Sodium [Moles/Vol] 138 mmol/L 136-145 [facility] WBC (Bld) [#/Vol] 6.2 10*3/uL 4.4-11.0 [facility] Blood erythrocytes count (nu mber/volume)Ordered By: Jared Guzman on 10-26-2023 RBC (Bld) [#/Vol] 3.47 10*6/uL 4.2-5.4 [facility] Blood hemoglobin measurement (mass/volume)Ordered By: Jared Guzman on 10-26-2023 Hemoglobin (Bld) [Mass/Vol] 9.6 g/dL 12.0-15.0 [facility] Blood lymphocytes/100 leukoc ytesOrdered By: Jared Guzman on 10-26-2023 Lymphocytes/100 WBC (Bld) 31.3 % 19-41 [facility] Blood monocytes/100 leukocyt esOrdered By: Jared Guzman on 10-26-2023 Monocytes/100 WBC (Bld) 6.4 % 0-10 [facility] Blood platelet mean volumeOr dered By: Jared Guzman on 10-26-2023 Platelet mean volume (Bld) [Entitic vol] 10.3 fL 6.2-12.0 [facility] Determination of erythrocyte mean corpuscular volume (MCV)Ordered By: Jared Guzman on 10-26-2023 MCV (RBC) [Entitic vol] 89.6 fL 81-99 [facility] Hematocrit Auto (Bld) [Volum e fraction]Ordered By: Jared Guzman on 10-26-2023 Hematocrit (Bld) [Volume fraction] 31.1 % 37-47 [facility] - Chemistry and C hemistry - challengeOrdered By: Jared Guzman on 10-26-2023 CO2 [Moles/Vol] 25.0 mmol/L 21.0-32.0 [facility] Urea nitrogen/Creatinine [Mass ratio] 26.6 mg/mg 10-20 [facility] - Hematology and Cell countsOrdered By: Jared Guzman on 10-26-2023 Erythrocyte distribution width (RBC) [Entitic vol] 47.2 fL 35.1-43.9 [facility] Erythrocyte distribution width (RBC) [Ratio] 14.6 % 11.6-14.6 [facility] Immature granulocytes/100 WBC (Bld) 0.600 % 0.0-0.9 [facility] Comment on above: IG% - Immature Granu locytes (promyelocytes, myelocytes and metamyelocytes) > 1% indicates that a LEFT SHIFT is Present. MCH (RBC) [Entitic mass] 27.7 pg 27.0-32.0 [facility] Nucleated RBC/100 [facility] (Bld) [[facility]] 0 [facility] [Mass/Vol]Or dered By: Jared Guzman on 10-26-2023 MCHC (RBC) [Mass/Vol] 30.9 g/dL 32-36 [facility] No Panel InformationOrdered By: Jared Guzman on 10-26-2023 Estimated GFR (MDRD) Amer 87 mL/min >60 [facility] Comment on above: GFR Calc Estimated GFR (MDRD) Non-Af Amer 72 mL/min >60 [facility] Comment on above: Non- GFR Calc Platelets bldOrdered By: Mike Guzman on 10-26-2023 Platelets (Bld) [#/Vol] 355 10*3/uL 150-450 [facility] Serum or plasma calcium mauricio urement (mass/volume)Ordered By: Jared Guzman on 10-26-2023 Calcium [Mass/Vol] 9.0 mg/dL 8.5-10.1 [facility] Serum or plasma creatinine m easurement (mass/volume)Ordered By: Jared Guzman on 10-26-2023 Creatinine [Mass/Vol] 0.87 mg/dL 0.55-1.02 [facility] Comment on above: The validity of the calculated GFR & GFRAA in patients over 70 years has not been determined. Clinical correlation is essential. Serum or plasma urea nitroge n measurement (mass/volume)Ordered By: Jared Guzman on 10-26-2023 Urea nitrogen [Mass/Vol] 23 mg/dL 7-18 [facility] Thin prep Papanicolaou smear with manual screeningOrdered By: Jared Guzman on 10-26-2023 Thin prep Papanicolaou smear with manual screening 6 5-15 [facility] Laboratory - Chemistry and C hemistry - challengeon 10-16-2023 Glucose [Mass/Vol] 289 mg/dL High 70 - 100 mg/dL [email or web address] Glucose [Mass/Vol] 346 mg/dL High 70 - 100 mg/dL [email or web address] Glucose [Mass/Vol] 304 mg/dL High 70 - 100 mg/dL [email or web address] Glucose [Mass/Vol] 312 mg/dL High 70 - 100 mg/dL [facility] No Panel Informationon 10-16 Interpretation and review of laboratory results Abnormal [facility] Interpretation and review of laboratory results Abnormal [facility] Interpretation and review of laboratory results Abnormal [facility] Interpretation and review of laboratory results Abnormal [facility] Glucose (Bld) [Mass/Vol]Orde red By: Eva Dalal on 10-15-2023 Glucose [Mass/Vol] 473 mg/dL Critically high 70 - 1 00 mg/dL [facility] Interpretation and review of laboratory results Abnormal [facility] Glucose (Bld) [Mass/Vol]Orde red By: Diane Islas on 10-15-2023 Glucose [Mass/Vol] 528 mg/dL Critically high 70 - 1 00 mg/dL [facility] Interpretation and review of laboratory results Abnormal [facility] Laboratory - Chemistry and C hemistry - challengeon 10-15-2023 Glucose [Mass/Vol] 262 mg/dL High 70 - 100 mg/dL [facility] Glucose [Mass/Vol] 289 mg/dL High 70 - 100 mg/dL [facility] Glucose [Mass/Vol] mg/dL High 70 - 100 mg/dL [facility] Glucose [Mass/Vol] mg/dL High 70 - 100 mg/dL [facility] No Panel Informationon 10-15 Interpretation and review of laboratory results Abnormal [facility] Interpretation and review of laboratory results Abnormal [facility] Interpretation and review of laboratory results Abnormal [facility] Interpretation and review of laboratory results Abnormal [facility] Bacteria identified Cx Nom ( Bld)on 10-14-2023 Interpretation and review of laboratory results Normal [facility] Basic metabolic 1998 panelon 10-14-2023 Anion gap [Moles/Vol] 7 mmol/L 3 - 13 mmol/L [facility] Calcium [Mass/Vol] 8.8 mg/dL 8.4 - 10. 4 mg/dL [facility] Chloride [Moles/Vol] 102 mmol/L 98 - 10 7 mmol/L [facility] CO2 [Moles/Vol] 25 mmol/L 22 - 30 mmol/L [facility] Creatinine [Mass/Vol] 0.98 mg/dL Male: 0.66-1.25 mg/dL; Female: 0.52-1.04 mg/dL [facility] GFR/1.73 sq M.predicted MDRD (S/P/Bld) [Vol rate/Area] 67.9 mL/min/{1.73_m2} - PINF [facility] Glucose [Mass/Vol] 250 mg/dL High 70 - 100 mg/dL [facility] Interpretation and review of laboratory results Abnormal [facility] Potassium [Moles/Vol] 3.9 mmol/L 3.5 - 5.1 mmol/L [facility] Sodium [Moles/Vol] 134 mmol/L Low 135 - 145 mmol/L [facility] Urea nitrogen [Mass/Vol] 35 mg/dL Male: 9-20 mg/dL; Female: 7-17 mg/dL [facility] Laboratory - Chemistry and C hemistry - challengeon 10-14-2023 Glucose [Mass/Vol] 305 mg/dL High 70 - 100 mg/dL [facility] Glucose [Mass/Vol] 338 mg/dL High 70 - 100 mg/dL [facility] Glucose [Mass/Vol] 360 mg/dL High 70 - 100 mg/dL [facility] Glucose [Mass/Vol] 268 mg/dL High 70 - 100 mg/dL [facility] Glucose [Mass/Vol] 235 mg/dL High 70 - 100 mg/dL [facility] Laboratory - Microbiology an d Antimicrobial susceptibilityon 10-14-2023 Bacteria identified Cx Nom (Bld) No growth at [address] [facility] No Panel Informationon 10-14 Interpretation and review of laboratory results Abnormal [facility] Interpretation and review of laboratory results Abnormal [facility] Interpretation and review of laboratory results Abnormal [facility] Interpretation and review of laboratory results Abnormal [facility] Interpretation and review of laboratory results Abnormal [facility] Basic metabolic 1998 panelon 10-13-2023 Anion gap [Moles/Vol] 10 mmol/L 3 - 13 mmol/L [facility] Calcium [Mass/Vol] 8.5 mg/dL 8.4 - 10. 4 mg/dL [facility] Chloride [Moles/Vol] 95 mmol/L Low 98 - 10 7 mmol/L [facility] CO2 [Moles/Vol] 24 mmol/L 22 - 30 mmol/L [facility] Creatinine [Mass/Vol] 1.28 mg/dL Male: 0.66-1.25 mg/dL; Female: 0.52-1.04 mg/dL [facility] GFR/1.73 sq M.predicted MDRD (S/P/Bld) [Vol rate/Area] 49.3 mL/min/{1.73_m2} Low - PINF [facility] Glucose [Mass/Vol] 383 mg/dL High 70 - 100 mg/dL [facility] Interpretation and review of laboratory results Abnormal [facility] Potassium [Moles/Vol] 3.8 mmol/L 3.5 - 5.1 mmol/L [facility] Sodium [Moles/Vol] 129 mmol/L Low 135 - 145 mmol/L [facility] Urea nitrogen [Mass/Vol] 44 mg/dL Male: 9-20 mg/dL; Female: 7-17 mg/dL [facility] CBC panel Auto (Bld)on 10-13 Erythrocyte distribution width (RBC) [Ratio] 14.7 % High 11.5 - 14.5 % [facility] Hematocrit (Bld) [Volume fraction] 31.7 % Male: 40.0-52.0 %; Female: 35.0-47.0 % [facility] Hemoglobin (Bld) [Mass/Vol] 10.5 g/dL Low 11.7 - 18.0 g/dL [facility] Interpretation and review of laboratory results Abnormal [facility] MCH (RBC) [Entitic mass] 28.1 pg 26.0 - 34.[address] [facility] MCHC (RBC) [Mass/Vol] 33.1 % 32.0 - 36.0 % [facility] MCV (RBC) [Entitic vol] 84.9 fL 80.0 - 98.[address] [facility] Platelet mean volume (Bld) [Entitic vol] 7.4 fL 7.4 - 12.[address] [facility] Platelets (Bld) [#/Vol] 324 10*3/uL 140 - 440 10*3/uL [facility] RBC (Bld) [#/Vol] 3.73 10*6/uL Male: 4.40-5.90; Female: 3.80-5.20 [facility] WBC (Bld) [#/Vol] 9.1 10*3/uL 3.6 - 10.7 10*3/uL [facility] - Chemistry and C hemistry - challengeon 10-13-2023 Glucose [Mass/Vol] 232 mg/dL High 70 - 100 mg/dL [facility] Glucose [Mass/Vol] 243 mg/dL High 70 - 100 mg/dL [facility] Glucose [Mass/Vol] 241 mg/dL High 70 - 100 mg/dL [facility] Glucose [Mass/Vol] 311 mg/dL High 70 - 100 mg/dL [facility] Glucose [Mass/Vol] 446 mg/dL High 70 - 100 mg/dL [facility] Glucose [Mass/Vol] 435 mg/dL High 70 - 100 mg/dL [facility] Magnesium [Mass/Vol] 1.7 mg/dL 1.6 - 2 .3 mg/dL [facility] Magnesium [Mass/Vol]on 10-13 Interpretation and review of laboratory results Normal [facility] No Panel Informationon 10-13 Interpretation and review of laboratory results Abnormal [facility] Interpretation and review of laboratory results Abnormal [facility] Interpretation and review of laboratory results Abnormal [facility] Interpretation and review of laboratory results Abnormal [facility] Interpretation and review of laboratory results Abnormal [facility] Interpretation and review of laboratory results Abnormal [facility] Bacteria identified Cx Nom ( Bld)on 10-12-2023 Interpretation and review of laboratory results Normal [facility] Basic metabolic 1998 panelon 10-12-2023 Anion gap [Moles/Vol] 10 mmol/L 3 - 13 mmol/L [facility] Calcium [Mass/Vol] 9.4 mg/dL 8.4 - 10. 4 mg/dL [facility] Chloride [Moles/Vol] 97 mmol/L Low 98 - 10 7 mmol/L [facility] CO2 [Moles/Vol] 24 mmol/L 22 - 30 mmol/L [facility] Creatinine [Mass/Vol] 0.98 mg/dL Male: 0.66-1.25 mg/dL; Female: 0.52-1.04 mg/dL [facility] GFR/1.73 sq M.predicted MDRD (S/P/Bld) [Vol rate/Area] 67.9 mL/min/{1.73_m2} - PINF [facility] Glucose [Mass/Vol] 401 mg/dL High 70 - 100 mg/dL [facility] Interpretation and review of laboratory results Abnormal [facility] Potassium [Moles/Vol] 4.5 mmol/L 3.5 - 5.1 mmol/L [facility] Sodium [Moles/Vol] 131 mmol/L Low 135 - 145 mmol/L [facility] Urea nitrogen [Mass/Vol] 25 mg/dL Male: 9-20 mg/dL; Female: 7-17 mg/dL [facility] CBC panel Auto (Bld)Ordered By: Ioana Arriaga on 10-12-2023 Erythrocyte distribution width (RBC) [Ratio] 14.8 % High 11.5 - 14.5 % [facility] Hematocrit (Bld) [Volume fraction] 37.5 % Male: 40.0-52.0 %; Female: 35.0-47.0 % [facility] Hemoglobin (Bld) [Mass/Vol] 12.4 g/dL 11.7 - 18.0 g/dL [facility] Interpretation and review of laboratory results Abnormal [facility] MCH (RBC) [Entitic mass] 28.1 pg 26.0 - 34.[address] [facility] MCHC (RBC) [Mass/Vol] 33.0 % 32.0 - 36.0 % [facility] MCV (RBC) [Entitic vol] 85.1 fL 80.0 - 98.[address] [facility] Platelet mean volume (Bld) [Entitic vol] 7.5 fL 7.4 - 12.[address] [facility] Platelets (Bld) [#/Vol] 355 10*3/uL 140 - 440 10*3/uL [facility] RBC (Bld) [#/Vol] 4.40 10*6/uL Male: 4.40-5.90; Female: 3.80-5.20 [facility] WBC (Bld) [#/Vol] 7.4 10*3/uL 3.6 - 10.7 10*3/uL [facility] Laboratory - Chemistry and C hemistry - challengeon 10-12-2023 Glucose [Mass/Vol] 359 mg/dL High 70 - 100 mg/dL [facility] Glucose [Mass/Vol] 327 mg/dL High 70 - 100 mg/dL [facility] Glucose [Mass/Vol] 364 mg/dL High 70 - 100 mg/dL [facility] Glucose [Mass/Vol] 304 mg/dL High 70 - 100 mg/dL [facility] Glucose [Mass/Vol] 411 mg/dL High 70 - 100 mg/dL [facility] Glucose [Mass/Vol] 387 mg/dL High 70 - 100 mg/dL [facility] Laboratory - Microbiology an d Antimicrobial susceptibilityon 10-12-2023 Bacteria identified Cx Nom (Bld) No growth at [address] [facility] No Panel Informationon 10-12 Interpretation and review of laboratory results Abnormal [facility] Interpretation and review of laboratory results Abnormal [facility] Interpretation and review of laboratory results Abnormal [facility] Interpretation and review of laboratory results Abnormal [facility] Interpretation and review of laboratory results Abnormal [facility] Interpretation and review of laboratory results Abnormal [facility] XR Chest Single viewon 10-12 [facility] Radiology Study observation (narrative) [facility] XR Chest Single viewOrdered By: Alejandro Mooney on 10-12-2023 [facility] Work Phone: Bacteria identified Cx Nom ( Bld)Ordered By: Nayeil Reyna on 10-11-2023 Interpretation and review of laboratory results Abnormal [facility] CBC panel Auto (Bld)Ordered By: Alonzo Lee on 10-11-2023 Erythrocyte distribution width (RBC) [Ratio] 14.8 % High 11.5 - 14.5 % [facility] Hematocrit (Bld) [Volume fraction] 32.1 % Male: 40.0-52.0 %; Female: 35.0-47.0 % [facility] Hemoglobin (Bld) [Mass/Vol] 10.9 g/dL Low 11.7 - 18.0 g/dL [facility] Interpretation and review of laboratory results Abnormal [facility] MCH (RBC) [Entitic mass] 28.5 pg 26.0 - 34.[address] [facility] MCHC (RBC) [Mass/Vol] 33.8 % 32.0 - 36.0 % [facility] MCV (RBC) [Entitic vol] 84.2 fL 80.0 - 98.[address] [facility] Platelet mean volume (Bld) [Entitic vol] 7.9 fL 7.4 - 12.[address] [facility] Platelets (Bld) [#/Vol] 347 10*3/uL 140 - 440 10*3/uL [facility] RBC (Bld) [#/Vol] 3.82 10*6/uL Male: 4.40-5.90; Female: 3.80-5.20 [facility] WBC (Bld) [#/Vol] 9.4 10*3/uL 3.6 - 10.7 10*3/uL [facility] Comprehensive metabolic 1998 panelon 10-11-2023 Albumin [Mass/Vol] 3.8 g/dL 3.5 - 5.0 g/dL [facility] ALP [Catalytic activity/Vol] 143 U/L High 38 - 126 U/L [facility] ALT [Catalytic activity/Vol] 28 U/L Male: 0-49 U/L; Female: 0-34 U/L [facility] Anion gap [Moles/Vol] 12 mmol/L 3 - 13 mmol/L [facility] AST [Catalytic activity/Vol] 20 U/L 15 - 46 U/L [facility] Bilirubin [Mass/Vol] 0.7 mg/dL 0.2 - 1 .3 mg/dL [facility] Calcium [Mass/Vol] 8.7 mg/dL 8.4 - 10. 4 mg/dL [facility] Chloride [Moles/Vol] 95 mmol/L Low 98 - 10 7 mmol/L [facility] CO2 [Moles/Vol] 22 mmol/L 22 - 30 mmol/L [facility] Creatinine [Mass/Vol] 1.30 mg/dL Male: 0.66-1.25 mg/dL; Female: 0.52-1.04 mg/dL [facility] GFR/1.73 sq M.predicted MDRD (S/P/Bld) [Vol rate/Area] 48.4 mL/min/{1.73_m2} Low - PINF [facility] Glucose [Mass/Vol] 397 mg/dL High 70 - 100 mg/dL [facility] Potassium [Moles/Vol] 4.2 mmol/L 3.5 - 5.1 mmol/L [facility] Protein [Mass/Vol] 6.5 g/dL 6.3 - 8.2 g/dL [facility] Sodium [Moles/Vol] 128 mmol/L Low 135 - 145 mmol/L [facility] Urea nitrogen [Mass/Vol] 28 mg/dL Male: 9-20 mg/dL; Female: 7-17 mg/dL [facility] Creatinine (U) [Mass/Vol]on 10-11-2023 CREATININE, URINE 10.6 mg/dL No Range [facility] Glucose (Bld) [Mass/Vol]Orde red By: Anna Figueroa on 10-11-2023 Glucose [Mass/Vol] 522 mg/dL Critically high 70 - 1 00 mg/dL [facility] Interpretation and review of laboratory results Abnormal [facility] Laboratory - Chemistry and C hemistry - challengeon 10-11-2023 Glucose [Mass/Vol] 401 mg/dL High 70 - 100 mg/dL [facility] Sodium (24H U) [Mass/Vol] 71 mmol/L 30 - 90 mmol/L [facility] Glucose [Mass/Vol] mg/dL High 70 - 100 mg/dL [facility] Glucose [Mass/Vol] mg/dL High 70 - 100 mg/dL [facility] Glucose [Mass/Vol] 447 mg/dL High 70 - 100 mg/dL [facility] Glucose [Mass/Vol] 354 mg/dL High 70 - 100 mg/dL [facility] Magnesium [Mass/Vol] 1.3 mg/dL Low 1.6 - 2 .3 mg/dL [facility] Glucose [Mass/Vol] 386 mg/dL High 70 - 100 mg/dL [facility] Laboratory - Microbiology an d Antimicrobial susceptibilityOrdered By: Nayeli Reyna on 10-11-2023 Bacteria identified Cx Nom (Bld) Acinetobacter lwoffii Critically abnormal [facility] No Panel Informationon 10-11 Interpretation and review of laboratory results Abnormal [facility] Interpretation and review of laboratory results Normal [facility] OSMOLALITY, URINE 318 [facility] Interpretation and review of laboratory results Normal [facility] Interpretation and review of laboratory results Abnormal [facility] Interpretation and review of laboratory results Abnormal [facility] Interpretation and review of laboratory results Abnormal [facility] Interpretation and review of laboratory results Abnormal [facility] Interpretation and review of laboratory results Abnormal [facility] Interpretation and review of laboratory results Abnormal [facility] Glucose (Bld) [Mass/Vol]Orde red By: Abner Vieyra on 10-10-2023 Glucose [Mass/Vol] 45 mg/dL Critically low 70 - 10 0 mg/dL [facility] Interpretation and review of laboratory results Abnormal [facility] Laboratory - Chemistry and C hemistry - challengeon 10-10-2023 Glucose [Mass/Vol] 404 mg/dL High 70 - 100 mg/dL [facility] Glucose [Mass/Vol] 405 mg/dL High 70 - 100 mg/dL [facility] Glucose [Mass/Vol] 353 mg/dL High 70 - 100 mg/dL [facility] Glucose [Mass/Vol] 253 mg/dL High 70 - 100 mg/dL [facility] Glucose [Mass/Vol] 254 mg/dL High 70 - 100 mg/dL [facility] Glucose [Mass/Vol] 258 mg/dL High 70 - 100 mg/dL [facility] Glucose [Mass/Vol] 248 mg/dL High 70 - 100 mg/dL [facility] Glucose [Mass/Vol] 101 mg/dL High 70 - 100 mg/dL [facility] Glucose [Mass/Vol] 67 mg/dL Low 70 - 100 mg/dL [facility] Glucose [Mass/Vol] mg/dL Low 70 - 100 mg/dL [facility] Glucose [Mass/Vol] mg/dL Low 70 - 100 mg/dL [facility] No Panel Informationon 10-10 Interpretation and review of laboratory results Abnormal [facility] Interpretation and review of laboratory results Abnormal [facility] Interpretation and review of laboratory results Abnormal [facility] Interpretation and review of laboratory results Abnormal [facility] Interpretation and review of laboratory results Abnormal [facility] Interpretation and review of laboratory results Abnormal [facility] Interpretation and review of laboratory results Abnormal [facility] Interpretation and review of laboratory results Abnormal [facility] Interpretation and review of laboratory results Abnormal [facility] Interpretation and review of laboratory results Abnormal [facility] Interpretation and review of laboratory results Abnormal [facility] Bacteria identified Cx Nom ( U)Ordered By: Tessy Gonzalez on 10-09-2023 Interpretation and review of laboratory results Normal [facility] Basic metabolic 1998 panelon 10-09-2023 Anion gap [Moles/Vol] 9 mmol/L 3 - 13 mmol/L [facility] Calcium [Mass/Vol] 8.7 mg/dL 8.4 - 10. 4 mg/dL [facility] Chloride [Moles/Vol] 98 mmol/L 98 - 10 7 mmol/L [facility] CO2 [Moles/Vol] 23 mmol/L 22 - 30 mmol/L [facility] Creatinine [Mass/Vol] 0.76 mg/dL Male: 0.66-1.25 mg/dL; Female: 0.52-1.04 mg/dL [facility] GFR/1.73 sq M.predicted MDRD (S/P/Bld) [Vol rate/Area] - PINF [facility] Glucose [Mass/Vol] 344 mg/dL High 70 - 100 mg/dL [facility] Interpretation and review of laboratory results Abnormal [facility] Potassium [Moles/Vol] 4.5 mmol/L 3.5 - 5.1 mmol/L [facility] Sodium [Moles/Vol] 130 mmol/L Low 135 - 145 mmol/L [facility] Urea nitrogen [Mass/Vol] 23 mg/dL Male: 9-20 mg/dL; Female: 7-17 mg/dL [facility] Laboratory - Chemistry and C hemistry - challengeon 10-09-2023 Glucose [Mass/Vol] 117 mg/dL High 70 - 100 mg/dL [facility] Glucose [Mass/Vol] 82 mg/dL 70 - 100 mg/dL [facility] Glucose [Mass/Vol] 176 mg/dL High 70 - 100 mg/dL [facility] Glucose [Mass/Vol] 210 mg/dL High 70 - 100 mg/dL [facility] Glucose [Mass/Vol] 207 mg/dL High 70 - 100 mg/dL [facility] Glucose [Mass/Vol] 318 mg/dL High 70 - 100 mg/dL [facility] Glucose [Mass/Vol] 377 mg/dL High 70 - 100 mg/dL [facility] Glucose [Mass/Vol] 337 mg/dL High 70 - 100 mg/dL [facility] Average glucose Estimated from glycated hemoglobin (Bld) [Mass/Vol] 174 mg/dL [facility] Laboratory - Drug toxicology on 10-09-2023 Vancomycin [Mass/Vol] 11.5 ug/mL Low 15.0 - 20.0 ug/mL [facility] Laboratory - Hematology and Cell countson 10-09-2023 HbA1c (Bld) [Mass fraction] 7.7 % High NINF - 5.7 % [facility] Laboratory - Microbiology an d Antimicrobial susceptibilityOrdered By: Tessy Gonzalez on 10-09-2023 Bacteria identified Cx Nom (U) No growth (<1,000 CFU/mL) [facility] No Panel Informationon 10-09 Interpretation and review of laboratory results Abnormal [facility] Interpretation and review of laboratory results Normal [facility] Interpretation and review of laboratory results Abnormal [facility] Interpretation and review of laboratory results Abnormal [facility] Interpretation and review of laboratory results Abnormal [facility] Interpretation and review of laboratory results Abnormal [facility] Interpretation and review of laboratory results Abnormal [facility] Interpretation and review of laboratory results Abnormal [facility] Interpretation and review of laboratory results Abnormal [facility] Interpretation and review of laboratory results Abnormal [facility] Basic metabolic 1998 panelon 10-08-2023 Anion gap [Moles/Vol] 8 mmol/L 3 - 13 mmol/L [facility] Calcium [Mass/Vol] 8.1 mg/dL Low 8.4 - 10. 4 mg/dL [facility] Chloride [Moles/Vol] 100 mmol/L 98 - 10 7 mmol/L [facility] CO2 [Moles/Vol] 22 mmol/L 22 - 30 mmol/L [facility] Creatinine [Mass/Vol] 1.09 mg/dL Male: 0.66-1.25 mg/dL; Female: 0.52-1.04 mg/dL [email or web address] GFR/1.73 sq M.predicted MDRD (S/P/Bld) [Vol rate/Area] 59.7 mL/min/{1.73_m2} Low - PINF [email or web address] Glucose [Mass/Vol] 288 mg/dL High 70 - 100 mg/dL [email or web address] Potassium [Moles/Vol] 4.2 mmol/L 3.5 - 5.1 mmol/L [email or web address] Sodium [Moles/Vol] 130 mmol/L Low 135 - 145 mmol/L [email or web address] Urea nitrogen [Mass/Vol] 34 mg/dL Male: 9-20 mg/dL; Female: 7-17 mg/dL [email or web address] [email or web address] CBC W Auto Differential pane l (Bld)Ordered By: Sixto Yao on 10-08-2023 Basophils (Bld) [#/Vol] 0.1 10*3/uL 0.0 - 0.2 10*3/uL [facility] [email or web address] Basophils/100 WBC (Bld) 0.8 % 0.0 - 2.0 % [facility] [employer] Eosinophils (Bld) [#/Vol] 0.1 10*3/uL 0.0 - 0.5 10*3/uL [facility] [email or web address] Eosinophils/100 WBC (Bld) 0.9 % Low 1.0 - 6.0 % [facility] [email or web address] Erythrocyte distribution width (RBC) [Ratio] 15.7 % High 11.5 - 14.5 % [facility] [email or web address] Hematocrit (Bld) [Volume fraction] 31.6 % Male: 40.0-52.0 %; Female: 35.0-47.0 % [facility] [email or web address] Hemoglobin (Bld) [Mass/Vol] 10.6 g/dL Low 11.7 - 18.0 g/dL [facility] Interpretation and review of laboratory results Abnormal [facility] [employer] Lymphocytes (Bld) [#/Vol] 2.7 10*3/uL 1.0 - 4.3 10*3/uL [facility] [email or web address] Lymphocytes/100 WBC (Bld) 26.5 % 20.0 - 40.0 % [facility] MCH (RBC) [Entitic mass] 28.5 pg 26.0 - 34.0 pg [facility] [email or web address] MCHC (RBC) [Mass/Vol] 33.5 % 32.0 - 36.0 % [facility] MCV (RBC) [Entitic vol] 84.9 fL 80.0 - 98.[address] [facility] Monocytes (Bld) [#/Vol] 0.7 10*3/uL 0.0 - 0.8 10*3/uL [facility] Monocytes/100 WBC (Bld) 7.3 % 2.0 - 10.0 % [facility] Neutrophils (Bld) [#/Vol] 6.5 10*3/uL 1.8 - 7.0 10*3/uL [facility] Neutrophils/100 WBC (Bld) 64.5 % 40.0 - 80.0 % [facility] Nucleated RBC/100 WBC (Bld) [Ratio] 0.1 % [facility] Platelet mean volume (Bld) [Entitic vol] 8.3 fL 7.4 - 12.[address] [facility] Platelets (Bld) [#/Vol] 339 10*3/uL 140 - 440 10*3/uL [facility] RBC (Bld) [#/Vol] 3.72 10*6/uL Male: 4.40-5.90; Female: 3.80-5.20 [facility] WBC (Bld) [#/Vol] 10.1 10*3/uL 3.6 - 10.7 10*3/uL [facility] CT Abdomen and Pelvis W cont rast Erica 10-08-2023 [facility] Radiology Study observation (narrative) [facility] CT Abdomen and Pelvis W cont rast IVOrdered By: Bao Hill on 10-08-2023 [facility] [email or web address] Work Phone: Hepatic function 2000 panelo n 10-08-2023 Albumin [Mass/Vol] 3.2 g/dL Low 3.5 - 5.0 g/dL [facility] ALP [Catalytic activity/Vol] 143 U/L High 38 - 126 U/L [facility] ALT [Catalytic activity/Vol] 42 U/L Male: 0-49 U/L; Female: 0-34 U/L [facility] AST [Catalytic activity/Vol] 33 U/L 15 - 46 U/L [facility] Bilirubin [Mass/Vol] 0.9 mg/dL 0.2 - 1 .3 mg/dL [facility] Bilirubin.conjugated [Mass/Vol] 0.0 mg/dL 0.0 - 0.3 mg/dL [facility] Protein [Mass/Vol] 5.9 g/dL Low 6.3 - 8.2 g/dL [facility] Laboratory - Chemistry and C hemistry - challengeon 10-08-2023 Glucose [Mass/Vol] 373 mg/dL High 70 - 100 mg/dL [facility] Glucose [Mass/Vol] 348 mg/dL High 70 - 100 mg/dL [facility] Glucose [Mass/Vol] 386 mg/dL High 70 - 100 mg/dL [facility] Glucose [Mass/Vol] 271 mg/dL High 70 - 100 mg/dL [facility] Ammonia (P) [Moles/Vol] 29 umol/L 9 - 30 umol/L [facility] MRSA DNA YASIR+probe Ql (Nose) on 10-08-2023 Interpretation and review of laboratory results Abnormal [facility] mecA gene Detected Abnormal Not Detected [facility] Staphylococcus aureus Detected Abnormal Not Detected [facility] No Panel Informationon 10-08 Interpretation and review of laboratory results Abnormal [facility] Interpretation and review of laboratory results Abnormal [facility] Interpretation and review of laboratory results Abnormal [facility] Interpretation and review of laboratory results Abnormal [facility] Interpretation and review of laboratory results Abnormal [facility] Interpretation and review of laboratory results Normal [facility] No Panel InformationOrdered By: Memo Bergman on 10-08-2023 Targets Detected Not detected [facility] Abdomen limitedon 023 [facility] Radiology Study observation (narrative) [facility] Abdomen limitedOrdered By : Javy Urias on 10-08-2023 [facility] Work Phone: CBC W Auto Differential pane l (Bld)Ordered By: Olamide Espino on 10-07-2023 Basophils (Bld) [#/Vol] 0.0 10*3/uL 0.0 - 0.2 10*3/uL [facility] Basophils/100 WBC (Bld) 0.2 % 0.0 - 2.0 % [facility] Eosinophils (Bld) [#/Vol] 0.0 10*3/uL 0.0 - 0.5 10*3/uL [facility] Eosinophils/100 WBC (Bld) 0.2 % Low 1.0 - 6.0 % [facility] Erythrocyte distribution width (RBC) [Ratio] 14.2 % 11.5 - 14.5 % [facility] Hematocrit (Bld) [Volume fraction] 41.5 % Male: 40.0-52.0 %; Female: 35.0-47.0 % [facility] Hemoglobin (Bld) [Mass/Vol] 13.2 g/dL 11.7 - 18.0 g/dL [facility] Immature granulocytes (Bld) [#/Vol] 0.1 10*3/uL High NINF - 0.0 10*3/uL [facility] Immature granulocytes/100 WBC (Bld) 0.8 % High NINF - 0.0 % [facility] Interpretation and review of laboratory results Abnormal [facility] Lymphocytes (Bld) [#/Vol] 1.0 10*3/uL 1.0 - 4.3 10*3/uL [facility] Lymphocytes/100 WBC (Bld) 7.5 % Low 20.0 - 40.0 % [facility] MCH (RBC) [Entitic mass] 27.8 pg 26.0 - 34.0 pg [facility] MCHC (RBC) [Mass/Vol] 31.8 % Low 32.0 - 36.0 % [facility] MCV (RBC) [Entitic vol] 87.4 fL 80.0 - 98.0 fL [facility] Monocytes (Bld) [#/Vol] 0.8 10*3/uL 0.0 - 0.8 10*3/uL [facility] Monocytes/100 WBC (Bld) 5.9 % 2.0 - 10.0 % [facility] Neutrophils (Bld) [#/Vol] 11.3 10*3/uL High 1.8 - 7.0 10*3/uL [facility] Neutrophils/100 WBC (Bld) 85.4 % High 40.0 - 80.0 % [facility] Platelet mean volume (Bld) [Entitic vol] 9.4 fL 7.4 - 12.4 fL [facility] Platelets (Bld) [#/Vol] 438 10*3/uL 140 - 440 10*3/uL [facility] RBC (Bld) [#/Vol] 4.75 10*6/uL Male: 4.40-5.90; Female: 3.80-5.20 [facility] WBC (Bld) [#/Vol] 13.3 10*3/uL High 3.6 - 10.7 10*3/uL [facility] Head WO contraston 2022 Mild parenchymal vol ume loss. No evidence of acute intracranial process. 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 Report Dictated on Electronically Signed By: Angel Randhawa MD Electronically Signed Date/Time: 10/07/2023 7:47 AM EST [facility] [employer] Patient Name: WILL ALVARADO : 1965 [...] are not adequately visualized for proper evaluation. [facility] Angel Randhawa MD - 10/07/2023 Patient Name: [...] Electronically Signed Date/Time: 10/07/2023 7:47 AM EST [facility] Radiology Study observation (narrative) [facility] CT Head WO contrastOrdered B y: Angel Randhawa on 10-07-2023 [facility] [email or web address] Work Phone: Comprehensive metabolic 1998 panelon 10-07-2023 Albumin [Mass/Vol] 4.1 g/dL 3.5 - 5.0 g/dL [facility] ALP [Catalytic activity/Vol] 133 U/L High 38 - 126 U/L [facility] ALT [Catalytic activity/Vol] 46 U/L Male: 0-49 U/L; Female: 0-34 U/L [facility] Anion gap [Moles/Vol] 11 mmol/L 3 - 13 mmol/L [facility] AST [Catalytic activity/Vol] 36 U/L 15 - 46 U/L [facility] Bilirubin [Mass/Vol] 0.4 mg/dL 0.2 - 1 .3 mg/dL [facility] Calcium [Mass/Vol] 8.8 mg/dL 8.4 - 10. 4 mg/dL [facility] Chloride [Moles/Vol] 100 mmol/L 98 - 10 7 mmol/L [facility] CO2 [Moles/Vol] 27 mmol/L 22 - 30 mmol/L [facility] Creatinine [Mass/Vol] 0.74 mg/dL Male: 0.66-1.25 mg/dL; Female: 0.52-1.04 mg/dL [facility] GFR/1.73 sq M.predicted MDRD (S/P/Bld) [Vol rate/Area] - PINF [facility] Glucose [Mass/Vol] 120 mg/dL High 70 - 100 mg/dL [facility] Interpretation and review of laboratory results Abnormal [facility] Potassium [Moles/Vol] 4.4 mmol/L 3.5 - 5.1 mmol/L [facility] Protein [Mass/Vol] 7.7 g/dL 6.3 - 8.2 g/dL [facility] Sodium [Moles/Vol] 138 mmol/L 135 - 145 mmol/L [facility] Urea nitrogen [Mass/Vol] 20 mg/dL Male: 9-20 mg/dL; Female: 7-17 mg/dL [facility] Ethanol (Bld) [Mass/Vol]on 12-07-2022 Ethanol [Mass/Vol] g/dL 0.000 - 0.010 g/dL [facility] Laboratory - Chemistry and C hemistry - challengeon 10-07-2023 Glucose [Mass/Vol] 267 mg/dL High 70 - 100 mg/dL [facility] Procalcitonin [Mass/Vol] 0.83 ng/mL High 0.00 - 0.09 ng/mL [facility] Lipase [Catalytic activity/Vol] 34 U/L 23 - 300 U/L [facility] Glucose [Mass/Vol] 176 mg/dL High 70 - 100 mg/dL [facility] Glucose [Mass/Vol] 111 mg/dL High 70 - 100 mg/dL [facility] Glucose [Mass/Vol] 81 mg/dL 70 - 100 mg/dL [facility] Glucose [Mass/Vol] 91 mg/dL 70 - 100 mg/dL [facility] Glucose [Mass/Vol] 100 mg/dL 70 - 100 mg/dL [facility] Glucose [Mass/Vol] 129 mg/dL High 70 - 100 mg/dL [facility] Glucose [Mass/Vol] 129 mg/dL [facility] Glucose [Mass/Vol] 129 mg/dL [facility] Glucose [Mass/Vol] 129 mg/dL High 70 - 100 mg/dL [facility] Glucose [Mass/Vol] 151 mg/dL [facility] Glucose [Mass/Vol] 151 mg/dL High 70 - 100 mg/dL [facility] Lactate [Moles/Vol] 1.2 mmol/L 0.7 - 2. 0 mmol/L [facility] Glucose [Mass/Vol] 100 mg/dL 70 - 100 mg/dL [facility] Glucose [Mass/Vol] 68 mg/dL Low 70 - 100 mg/dL [facility] Laboratory - Drug toxicology Ordered By: Annie Flynn on 10-07-2023 Amphetamines Screen method >1000 ng/mL Ql (U) Negative [facility] Barbiturates Screen method >200 ng/mL Ql (U) Negative [facility] Benzodiazepines Ql (U) Negative [facility] Methadone Screen Ql (U) Negative [facility] Opiates Screen Ql (U) Negative [facility] [facility] oxyCODONE Ql (U) Negative [facility] Phencyclidine Ql (U) Negative [facility] No Panel Informationon 10-07 Interpretation and review of laboratory results Abnormal [facility] Interpretation and review of laboratory results Normal [facility] Interpretation and review of laboratory results Abnormal [facility] Interpretation and review of laboratory results Abnormal [facility] Interpretation and review of laboratory results Normal [facility] Interpretation and review of laboratory results Normal [facility] Interpretation and review of laboratory results Normal [facility] Interpretation and review of laboratory results Abnormal [facility] Interpretation and review of laboratory results Normal [facility] Interpretation and review of laboratory results Normal [facility] Interpretation and review of laboratory results Abnormal [facility] Interpretation and review of laboratory results Normal [facility] Interpretation and review of laboratory results Abnormal [facility] Interpretation and review of laboratory results Normal [facility] Interpretation and review of laboratory results Normal [facility] Interpretation and review of laboratory results Abnormal [facility] No Panel InformationOrdered By: Annie Flynn on 10-07-2023 COCAINE METAB. SCREEN Negative [facility] Procalcitonin [Mass/Vol]on 12-07-2022 Interpretation and review of laboratory results Abnormal [facility] Respiratory pathogens DNA an d RNA panel YASIR+non-probe (Nph)on 10-07-2023 Adenovirus Not detected Not Detected [facility] B. pertussis DNA YASIR+probe Ql (Unsp spec) Not detected Not Detected [facility] Bordetella parapertussis Not detected Not Detected [facility] Chlamydia pneumoniae Not detected Not Detected [facility] Coronavirus 229E Not detected Not Detected [facility] Coronavirus HKU1 Not detected Not Detected [facility] Coronavirus NL63 Not detected Not Detected [facility] Coronavirus OC43 Not detected Not Detected [facility] FLUAV RNA YASIR+non-probe Ql (Nph) Not detected Not Detected [facility] FLUBV RNA YASIR+non-probe Ql (Nph) Not detected Not Detected [facility] Human Metapneumovirus Not detected Not Detected [facility] Human Rhinovirus/Enterovirus Not detected Not Detected [facility] Interpretation and review of laboratory results Normal [facility] Mycoplasma pneumoniae Not detected Not Detected [facility] Parainfluenza 1 Not detected Not Detected [facility] Parainfluenza 2 Not detected Not Detected [facility] Parainfluenza 3 Not detected Not Detected [facility] Parainfluenza 4 Not detected Not Detected [facility] Respiratory Syncytial Virus Not detected Not Detected [facility] SARS-CoV-2 (COVID-19) RNA YASIR+non-probe Ql (Nph) Not detected Not Detected [facility] Urinalysis complete panel (U )on 10-07-2023 Bacteria LM.HPF (Urine sed) [#/Area] Negative Negative /HPF [facility] Bilirubin Ql (U) Negative Negative mg/dL [facility] Clarity (U) Clear Clear [facility] Color (U) Yellow Lt. Yellow [facility] Epithelial cells.squamous LM.HPF (Urine sed) [#/Area] Negative [facility] Glucose Ql (U) 300 mg/dL Abnormal Normal (<70) [facility] Hemoglobin Ql (U) Negative Negative mg/dL [facility] Interpretation and review of laboratory results Abnormal [facility] Ketones (U) [Mass/Vol] Negative Negat bernard mg/dL [facility] Leukocyte esterase Test strip Ql (U) Negative Negative Kat/uL [facility] Mucus LM.HPF (Urine sed) [#/Area] Few Negative /LPF [facility] Nitrite Ql (U) Negative Negative [facility] pH (U) 6.0 [pH] 5.0 - 8.[address] [facility] Protein (U) [Mass/Vol] 300 mg/dL Abnormal Negative [facility] RBC LM.HPF (Urine sed) [#/Area] 0-2 [facility] Specific gravity (U) [Rel density] 1.023 1.005 - 1.030 [facility] Urobilinogen (U) [Mass/Vol] Normal Normal (0-1) mg/dL [facility] Volume, Urine [address] [facility] WBC LM.HPF (Urine sed) [#/Area] 3-5 [facility] XR Chest Single viewon 10-07 [facility] Radiology Study observation (narrative) [facility] Whole blood hemoglobin A1c/t otal hemoglobin ratio (mass fraction)Ordered By: Jared Guzman on 09-20-2023 HbA1c (Bld) [Mass fraction] 7.3 % 3.8-5.6 [facility] Comment on above: Normal < 5.7 % Predi abetic 5.7 - 6.4 % Diabetic >or= 6.5 % Please note range changes. Basic metabolic 1998 panelon 08-19-2023 Anion gap [Moles/Vol] 5 mmol/L 3 - 13 mmol/L [facility] Calcium [Mass/Vol] 8.4 mg/dL 8.4 - 10. 4 mg/dL [facility] Chloride [Moles/Vol] 99 mmol/L 98 - 10 7 mmol/L [facility] CO2 [Moles/Vol] 26 mmol/L 22 - 30 mmol/L [facility] Creatinine [Mass/Vol] 1.00 mg/dL Male: 0.66-1.25 mg/dL; Female: 0.52-1.04 mg/dL [facility] GFR/1.73 sq M.predicted MDRD (S/P/Bld) [Vol rate/Area] 66.3 mL/min/{1.73_m2} - PINF [facility] Comment on above: Calculation based on the Chronic Kidney Disease Epidemiology Collaboration (CKD-EPI) equation refit without adjustment for race Glucose [Mass/Vol] 223 mg/dL High 70 - 100 mg/dL [facility] Interpretation and review of laboratory results Abnormal [facility] Potassium [Moles/Vol] 4.4 mmol/L 3.5 - 5.1 mmol/L [facility] Sodium [Moles/Vol] 130 mmol/L Low 135 - 145 mmol/L [facility] Urea nitrogen [Mass/Vol] 23 mg/dL Male: 9-20 mg/dL; Female: 7-17 mg/dL [facility] CBC panel Auto (Bld)Ordered By: Joel Houston on 08-19-2023 Erythrocyte distribution width (RBC) [Ratio] 15.3 % High 11.5 - 14.5 % [facility] Hematocrit (Bld) [Volume fraction] 36.3 % Male: 40.0-52.0 %; Female: 35.0-47.0 % [facility] Hemoglobin (Bld) [Mass/Vol] 12.2 g/dL 11.7 - 18.0 g/dL [facility] Interpretation and review of laboratory results Abnormal [facility] MCH (RBC) [Entitic mass] 27.7 pg 26.0 - 34.[address] [facility] MCHC (RBC) [Mass/Vol] 33.7 % 32.0 - 36.0 % [facility] MCV (RBC) [Entitic vol] 82.2 fL 80.0 - 98.[address] [facility] Platelet mean volume (Bld) [Entitic vol] 7.8 fL 7.4 - 12.[address] [facility] Platelets (Bld) [#/Vol] 402 10*3/uL 140 - 440 10*3/uL [facility] RBC (Bld) [#/Vol] 4.41 10*6/uL Male: 4.40-5.90; Female: 3.80-5.20 [facility] WBC (Bld) [#/Vol] 8.6 10*3/uL 3.6 - 10.7 10*3/uL [facility] Laboratory - Chemistry and C hemistry - challengeon 08-19-2023 Glucose [Mass/Vol] 196 mg/dL High 70 - 100 mg/dL [facility] Glucose [Mass/Vol] 255 mg/dL High 70 - 100 mg/dL [facility] Glucose [Mass/Vol] 236 mg/dL High 70 - 100 mg/dL [email or web address] No Panel Informationon 08-19 Interpretation and review of laboratory results Abnormal [facility], [address] [facility] [address] CLIA ID: [id number] [email or web address] [facility] Interpretation and review of laboratory results Abnormal [email or web address] Performed by: [facility] [employer] [facility] [facility], [address], [facility] [address] CLIA ID: [id number] [email or web address] [facility] Interpretation and review of laboratory results Abnormal [email or web address] Performed by: [facility] [employer] [facility] [facility], [address] [facility], [facility] [address] CLIA ID: [id number] [email or web address] [facility] Sinus bradycardia Left bundle branch block Prolonged QT interval Compared to ECG 08/08/2023 06:58:13 Left bundle-branch block now present Electronically Signed On 08-19-2023 7:37:13 EDT by Nicolas Byrne D O - 08/19/2023 IMPRESSION: Sinus bradycardia Left bundle branch block Prolonged QT interval Compared to ECG 08/08/2023 06:58:13 Left bundle-branch block now present Electronically Signed On 08-19-2023 7:37:13 EDT by Nicolas Rose [email or web address] No Panel InformationOrdered By: Nicolas Rose on 08-19-2023 P [place] 40 degrees [employer] Work Phone: [place] Interval 194 ms [facility] Work Phone: [phone] QRS [place] -30 degrees [facility] Work Phone: QRSD Interval 140 ms [facility] Work Phone: [phone] QT Interval 632 ms [facility] Work Phone: QTC Interval 563 ms [facility] Work Phone: [phone] T Wave [place] -4 degrees [employer] Work Phone: [email or web address] Work Phone: Vital signsOrdered By: Harman Rose on 08-19-2023 Heart rate 48 /min bpm [email or web address] Work Phone: Basic metabolic 1998 panelon 08-18-2023 Anion gap [Moles/Vol] 6 mmol/L 3 - 13 mmol/L [facility] [employer] Calcium [Mass/Vol] 8.0 mg/dL Low 8.4 - 10. 4 mg/dL [facility] [employer] Chloride [Moles/Vol] 100 mmol/L 98 - 10 7 mmol/L [facility] [employer] CO2 [Moles/Vol] 24 mmol/L 22 - 30 mmol/L [facility] [employer] Creatinine [Mass/Vol] 0.76 mg/dL Male: 0.66-1.25 mg/dL; Female: 0.52-1.04 mg/dL [facility] [employer] GFR/1.73 sq M.predicted MDRD (S/P/Bld) [Vol rate/Area] - PINF [email or web address] Comment on above: Calculation based on the Chronic Kidney Disease Epidemiology Collaboration (CKD-EPI) equation refit without adjustment for race Glucose [Mass/Vol] 311 mg/dL High 70 - 100 mg/dL [facility] [email or web address] Interpretation and review of laboratory results Abnormal [facility] [employer] Potassium [Moles/Vol] 4.2 mmol/L 3.5 - 5.1 mmol/L [facility] [employer] Sodium [Moles/Vol] 130 mmol/L Low 135 - 145 mmol/L [facility] [employer] Urea nitrogen [Mass/Vol] 24 mg/dL Male: 9-20 mg/dL; Female: 7-17 mg/dL [facility] [employer] CBC W Auto Differential pane l (Bld)Ordered By: Alex Kwok on 08-18-2023 Basophils (Bld) [#/Vol] 0.1 10*3/uL 0.0 - 0.2 10*3/uL [facility] [employer] Basophils/100 WBC (Bld) 0.7 % 0.0 - 2.0 % [facility] Eosinophils (Bld) [#/Vol] 0.2 10*3/uL 0.0 - 0.5 10*3/uL [facility] [employer] Eosinophils/100 WBC (Bld) 1.2 % 1.0 - 6.0 % [facility] Erythrocyte distribution width (RBC) [Ratio] 15.2 % High 11.5 - 14.5 % [facility] Hematocrit (Bld) [Volume fraction] 36.1 % Male: 40.0-52.0 %; Female: 35.0-47.0 % [facility] Hemoglobin (Bld) [Mass/Vol] 12.2 g/dL 11.7 - 18.0 g/dL [facility] Interpretation and review of laboratory results Abnormal [facility] Lymphocytes (Bld) [#/Vol] 2.3 10*3/uL 1.0 - 4.3 10*3/uL [facility] Lymphocytes/100 WBC (Bld) 17.5 % Low 20.0 - 40.0 % [facility] MCH (RBC) [Entitic mass] 28.2 pg 26.0 - 34.[address] [facility] MCHC (RBC) [Mass/Vol] 33.9 % 32.0 - 36.0 % [facility] MCV (RBC) [Entitic vol] 83.0 fL 80.0 - 98.[address] [facility] Monocytes (Bld) [#/Vol] 1.2 10*3/uL High 0.0 - 0.8 10*3/uL [facility] Monocytes/100 WBC (Bld) 8.8 % 2.0 - 10.0 % [facility] Neutrophils (Bld) [#/Vol] 9.5 10*3/uL High 1.8 - 7.0 10*3/uL [facility] Neutrophils/100 WBC (Bld) 71.8 % 40.0 - 80.0 % [facility] Nucleated RBC/100 WBC (Bld) [Ratio] 0.0 % [facility] Platelet mean volume (Bld) [Entitic vol] 7.7 fL 7.4 - 12.[address] [facility] Platelets (Bld) [#/Vol] 388 10*3/uL 140 - 440 10*3/uL [facility] RBC (Bld) [#/Vol] 4.35 10*6/uL Male: 4.40-5.90; Female: 3.80-5.20 [facility] WBC (Bld) [#/Vol] 13.2 10*3/uL High 3.6 - 10.7 10*3/uL [facility] Laboratory - Chemistry and C hemistry - challengeon 08-18-2023 Glucose [Mass/Vol] 294 mg/dL High 70 - 100 mg/dL [facility] Glucose [Mass/Vol] 339 mg/dL High 70 - 100 mg/dL [facility] Glucose [Mass/Vol] 363 mg/dL High 70 - 100 mg/dL [facility] Glucose [Mass/Vol] 398 mg/dL High 70 - 100 mg/dL [facility] No Panel Informationon 08-18 Interpretation and review of laboratory results Abnormal [facility]formed by: [facility], [address] [facility], [facility] [address] CLIA ID: [id number] [facility] Interpretation and review of laboratory results Abnormal [facility] Performed by: [facility], [address], [facility] [address] CLIA ID: [id number] [facility] Interpretation and review of laboratory results Abnormal [facility] Performed by: [facility], [address] [facility], [facility] [address] CLIA ID: [id number] [facility] Interpretation and review of laboratory results Abnormal [facility] Performed by: [facility], [address] [facility], [facility] [address] CLIA ID: [id number] [facility] Basophil percentageon 2022 Sodium [Moles/Vol] 132 mmol/L 136-145 [facility] Basophil percentageOrdered B y: Jared Guzman on 08-17-2023 Bilirubin [Mass/Vol] 0.60 mg/dL 0.20-1.00 [facility] Comment on above: For patients on eltr ombopag therapy, use of [employer] [place] TBIL is not recommended. Chloride [Moles/Vol] 100 mmol/L 98-107 [facility] Glucose [Mass/Vol] 240 mg/dL 74-106 [facility] Comment on above: Glucose result great er than or equal to 200 mg/dLsuggests DIABETES MELLITUS per A.D.A. criteria. Potassium [Moles/Vol] 4.3 mmol/L 3.5-5.1 [facility] Protein [Mass/Vol] 6.8 g/dL 6.4-8.2 [facility] WBC (Bld) [#/Vol] 9.3 10*3/uL 4.4-11.0 [facility] Blood erythrocytes count (nu mber/volume)Ordered By: Jared Guzman on 08-17-2023 RBC (Bld) [#/Vol] 4.64 10*6/uL 4.2-5.4 [facility] Blood hemoglobin measurement (mass/volume)Ordered By: Jared Guzman on 08-17-2023 Hemoglobin (Bld) [Mass/Vol] 12.4 g/dL 12.0-15.0 [facility] Blood platelet mean volumeOr dered By: Jared Guzman on 08-17-2023 Platelet mean volume (Bld) [Entitic vol] 9.8 fL 6.2-12.0 [facility] CBC W Auto Differential pane l (Bld)Ordered By: Bisi Bloom on 08-17-2023 Basophils (Bld) [#/Vol] 0.1 10*3/uL 0.0 - 0.2 10*3/uL [facility] [employer] Basophils/100 WBC (Bld) 0.8 % 0.0 - 2.0 % [facility] Eosinophils (Bld) [#/Vol] 0.1 10*3/uL 0.0 - 0.5 10*3/uL [facility] Eosinophils/100 WBC (Bld) 0.4 % Low 1.0 - 6.0 % [facility] [employer] Erythrocyte distribution width (RBC) [Ratio] 15.3 % High 11.5 - 14.5 % [facility] Hematocrit (Bld) [Volume fraction] 37.7 % Male: 40.0-52.0 %; Female: 35.0-47.0 % [facility] Hemoglobin (Bld) [Mass/Vol] 12.5 g/dL 11.7 - 18.0 g/dL [facility] [employer] Interpretation and review of laboratory results Abnormal [facility] Lymphocytes (Bld) [#/Vol] 3.6 10*3/uL 1.0 - 4.3 10*3/uL [facility] Lymphocytes/100 WBC (Bld) 24.4 % 20.0 - 40.0 % [facility] [employer] MCH (RBC) [Entitic mass] 27.2 pg 26.0 - 34.0 pg [facility] MCHC (RBC) [Mass/Vol] 33.1 % 32.0 - 36.0 % [facility] [employer] MCV (RBC) [Entitic vol] 82.4 fL 80.0 - 98.0 fL [facility] [employer] Monocytes (Bld) [#/Vol] 1.3 10*3/uL High 0.0 - 0.8 10*3/uL [facility] Monocytes/100 WBC (Bld) 8.5 % 2.0 - 10.0 % [facility] [employer] Neutrophils (Bld) [#/Vol] 9.7 10*3/uL High 1.8 - 7.0 10*3/uL [facility] Neutrophils/100 WBC (Bld) 65.9 % 40.0 - 80.0 % [facility] [employer] Nucleated RBC/100 WBC (Bld) [Ratio] 0.0 % [facility] [employer] Platelet mean volume (Bld) [Entitic vol] 7.5 fL 7.4 - 12.4 fL [facility] [employer] Platelets (Bld) [#/Vol] 468 10*3/uL High 140 - 440 10*3/uL [facility] RBC (Bld) [#/Vol] 4.57 10*6/uL Male: 4.40-5.90; Female: 3.80-5.20 [facility] [employer] WBC (Bld) [#/Vol] 14.7 10*3/uL High 3.6 - 10.7 10*3/uL [facility] CT Abdomen and Pelvis W [facility] ras Erica 08-17-2023 Limited study due to the [...] spondylitis. Report Dictated on Electronically Signed By: Cirilo Guy MD Electronically Signed Date/Time: 08/17/2023 4:21 PM [facility] [employer] [facility] Patient Name: WILL ALVARADO : [...] and increased in size since November 2020. [facility] Cirilo Guy MD - 08/17/2023 Patient Name: WILL [...] spondylitis. Report Dictated on Electronically Signed By: Cirilo Guy MD Electronically Signed Date/Time: 08/17/2023 4:21 PM EDT [facility] Study observation (narrative) [facility] CT Abdomen and Pelvis W cont rast IVOrdered By: Cirilo Guy on 08-17-2023 [facility] Work Phone: Comprehensive metabolic 1998 panelon 08-17-2023 Albumin [Mass/Vol] 4.0 g/dL 3.5 - 5.0 g/dL [facility] ALP [Catalytic activity/Vol] 136 U/L High 38 - 126 U/L [facility] ALT [Catalytic activity/Vol] 47 U/L Male: 0-49 U/L; Female: 0-34 U/L [facility] Anion gap [Moles/Vol] 4 mmol/L 3 - 13 mmol/L [facility] AST [Catalytic activity/Vol] 29 U/L 15 - 46 U/L [facility] Bilirubin [Mass/Vol] 0.5 mg/dL 0.2 - 1 .3 mg/dL [facility] Calcium [Mass/Vol] 8.8 mg/dL 8.4 - 10. 4 mg/dL [facility] Chloride [Moles/Vol] 99 mmol/L 98 - 10 7 mmol/L [facility] CO2 [Moles/Vol] 29 mmol/L 22 - 30 mmol/L [facility] Creatinine [Mass/Vol] 0.72 mg/dL Male: 0.66-1.25 mg/dL; Female: 0.52-1.04 mg/dL [facility] GFR/1.73 sq M.predicted MDRD (S/P/Bld) [Vol rate/Area] - PINF [facility] Comment on above: Calculation based on the Chronic Kidney Disease Epidemiology Collaboration (CKD-EPI) equation refit without adjustment for race Glucose [Mass/Vol] 71 mg/dL 70 - 100 mg/dL [facility] Interpretation and review of laboratory results Abnormal [facility] Potassium [Moles/Vol] 4.8 mmol/L 3.5 - 5.1 mmol/L [facility] Protein [Mass/Vol] 7.1 g/dL 6.3 - 8.2 g/dL [facility] Urea nitrogen [Mass/Vol] 17 mg/dL Male: 9-20 mg/dL; Female: 7-17 mg/dL [facility] Determination of erythrocyte mean corpuscular volume (MCV)Ordered By: Jared Guzman on 08-17-2023 MCV (RBC) [Entitic vol] 86.6 fL 81-99 [facility] Glucose (Bld) [Mass/Vol]Orde red By: Asuncion Buchanan on 08-17-2023 Glucose [Mass/Vol] 29 mg/dL Critically low 70 - 10 0 mg/dL [facility] Interpretation and review of laboratory results Abnormal [facility] Hematocrit Auto (Bld) [Volum e fraction]Ordered By: Jared Guzman on 08-17-2023 Hematocrit (Bld) [Volume fraction] 40.2 % 37-47 [facility] Laboratory - Chemistry and C hemistry - challengeon 08-17-2023 Glucose [Mass/Vol] 154 mg/dL High 70 - 100 mg/dL [facility] Glucose [Mass/Vol] 154 mg/dL [facility] Glucose [Mass/Vol] 154 mg/dL High 70 - 100 mg/dL [facility] Glucose [Mass/Vol] mg/dL Low 70 - 100 mg/dL [facility] Comment on above: Caregiver Notified; Confirmation Drawn; Lipase [Catalytic activity/Vol] 62 U/L 23 - 300 U/L [facility] Lactate [Moles/Vol] 1.1 mmol/L 0.7 - 2. 0 mmol/L [facility] Laboratory - Chemistry and C hemistry - challengeOrdered By: Jared Guzman on 08-17-2023 ALP [Catalytic activity/Vol] 156 U/L 45-117 [facility] ALT [Catalytic activity/Vol] 56 U/L 13-56 [facility] CO2 [Moles/Vol] 29.0 mmol/L 21.0-32.0 [facility] Globulin (S) [Mass/Vol] 3.7 g/dL 2.2-4.2 [facility] Urea nitrogen/Creatinine [Mass ratio] 20.6 mg/mg 10-20 [facility] - Hematology and Cell countsOrdered By: Jared Guzman on 08-17-2023 Erythrocyte distribution width (RBC) [Entitic vol] 44.6 fL 35.1-43.9 [facility] Erythrocyte distribution width (RBC) [Ratio] 14.0 % 11.6-14.6 [facility] MCH (RBC) [Entitic mass] 26.7 pg 27.0-32.0 [facility] Lipase [Catalytic activity/V ol]on 08-17-2023 Interpretation and review of laboratory results Normal [facility] MCHC Auto (RBC) [Mass/Vol]Or dered By: Jared Guzman on 08-17-2023 MCHC (RBC) [Mass/Vol] 30.8 g/dL 32-36 [facility] No Panel Informationon 08-17 Interpretation and review of laboratory results Abnormal [facility] Performed by: [facility], [address], [facility] [address] CLIA ID: [id number] [email or web address] [facility] Interpretation and review of laboratory results Normal [facility] Interpretation and review of laboratory results Abnormal [facility] Performed by: [facility], [address], [facility] [address] CLIA ID: [id number] [email or web address] [facility] Interpretation and review of laboratory results Abnormal [facility] Performed by: [facility], [address], [facility] [address] CLIA ID: [id number] [email or web address] [facility] Interpretation and review of laboratory results Normal [facility] No Panel InformationOrdered By: Jared Guzman on 08-17-2023 Estimated GFR (MDRD) Amer 99 mL/min >60 [facility] Comment on above: GFR Calc Estimated GFR (MDRD) Non-Af Amer 81 mL/min >60 [facility] Comment on above: Non- GFR Calc Platelets bldOrdered By: Mike Guzman on 08-17-2023 Platelets (Bld) [#/Vol] 410 10*3/uL 150-450 [facility] Serum or plasma albumin mauricio urement (mass/volume)Ordered By: Jared Guzman on 08-17-2023 Albumin [Mass/Vol] 3.1 g/dL 3.2-5.0 [facility] Serum or plasma albumin/glob ulin mass ratioOrdered By: Jared Guzman on 08-17-2023 Albumin/Globulin [Mass ratio] 0.8 {ratio} 0.9-2.4 [facility] Serum or plasma calcium mauricio urement (mass/volume)Ordered By: Jared Guzman on 08-17-2023 Calcium [Mass/Vol] 9.1 mg/dL 8.5-10.1 [facility] Serum or plasma creatinine m easurement (mass/volume)Ordered By: Jared Guzman on 08-17-2023 Creatinine [Mass/Vol] 0.78 mg/dL 0.55-1.02 [facility] Comment on above: The validity of the calculated GFR & GFRAA in patients over 70 years has not been determined. Clinical correlation is essential. Serum or plasma urea nitroge n measurement (mass/volume)Ordered By: Jared Guzman on 08-17-2023 Urea nitrogen [Mass/Vol] 16 mg/dL 7-18 [facility] Thin prep Papanicolaou smear with manual screeningOrdered By: Jared Guzman on 08-17-2023 Thin prep Papanicolaou smear with manual screening 16 U/L 15-37 [facility] Thin prep Papanicolaou smear with manual screening 3 5-15 [facility] Urinalysis complete panel (U )Ordered By: Silvia Bone on 08-17-2023 Bacteria LM.HPF (Urine sed) [#/Area] Negative Negative /HPF [facility] Bilirubin Ql (U) Negative Negative mg/dL [facility] Clarity (U) Clear Clear [facility] Color (U) Yellow Lt. Yellow [facility] Epithelial cells.squamous LM.HPF (Urine sed) [#/Area] 0-2 [facility] Glucose Ql (U) 300 mg/dL Abnormal Normal (<70) [facility] Hemoglobin Ql (U) 0.06 mg/dL Abnormal Negative [facility] Hyaline casts Auto (Urine sed) [#/Area] 0-2 Abnormal Negative /LPF [facility] Interpretation and review of laboratory results Abnormal [facility] Ketones (U) [Mass/Vol] Negative Negat bernard mg/dL [facility] Leukocyte esterase Test strip Ql (U) Negative Negative Kat/uL [facility] Mucus LM.HPF (Urine sed) [#/Area] Few Negative /LPF [facility] Nitrite Ql (U) Negative Negative [facility] pH (U) 6.0 [pH] 5.0 - 8.[address] [facility] Protein (U) [Mass/Vol] 300 mg/dL Abnormal Negative [facility] RBC LM.HPF (Urine sed) [#/Area] 3-[address] [facility] Specific gravity (U) [Rel density] 1.040 High 1.005 - 1.030 [facility] Urobilinogen (U) [Mass/Vol] 2 mg/dL Abnormal Normal (0-1) [facility] WBC LM.HPF (Urine sed) [#/Area] 3-5 [facility] Basic metabolic 1998 panelon 08-08-2023 Anion gap [Moles/Vol] 5 mmol/L 3 - 13 mmol/L [facility] Calcium [Mass/Vol] 8.9 mg/dL 8.4 - 10. 4 mg/dL [facility] Chloride [Moles/Vol] 97 mmol/L Low 98 - 10 7 mmol/L [facility] CO2 [Moles/Vol] 27 mmol/L 22 - 30 mmol/L [facility] Creatinine [Mass/Vol] 0.49 mg/dL Male: 0.66-1.25 mg/dL; Female: 0.52-1.04 mg/dL [facility] GFR/1.73 sq M.predicted MDRD (S/P/Bld) [Vol rate/Area] - PINF [facility] Comment on above: Calculation based on the Chronic Kidney Disease Epidemiology Collaboration (CKD-EPI) equation refit without adjustment for race Glucose [Mass/Vol] 253 mg/dL High 70 - 100 mg/dL [facility] Potassium [Moles/Vol] 5.0 mmol/L 3.5 - 5.1 mmol/L [facility] Sodium [Moles/Vol] 130 mmol/L Low 135 - 145 mmol/L [facility] Urea nitrogen [Mass/Vol] 13 mg/dL Male: 9-20 mg/dL; Female: 7-17 mg/dL [facility] Beta Hydroxybutyrateon 08-08 Beta hydroxybutyrate [Mass/Vol] 8.44 mg/dL High 0.20 - 2.81 mg/dL [facility] Interpretation and review of laboratory results Abnormal [facility] CBC panel Auto (Bld)Ordered By: Alex Kwok on 08-08-2023 Erythrocyte distribution width (RBC) [Ratio] 15.3 % High 11.5 - 14.5 % [facility] Hematocrit (Bld) [Volume fraction] 36.2 % Male: 40.0-52.0 %; Female: 35.0-47.0 % [facility] Hemoglobin (Bld) [Mass/Vol] 12.0 g/dL 11.7 - 18.0 g/dL [facility] Interpretation and review of laboratory results Abnormal [facility] MCH (RBC) [Entitic mass] 27.3 pg 26.0 - 34.[address] [facility] MCHC (RBC) [Mass/Vol] 33.3 % 32.0 - 36.0 % [facility] MCV (RBC) [Entitic vol] 81.9 fL 80.0 - 98.0 fL [facility] [email or web address] Platelet mean volume (Bld) [Entitic vol] 7.6 fL 7.4 - 12.4 fL [facility] [email or web address] Platelets (Bld) [#/Vol] 364 10*3/uL 140 - 440 10*3/uL [facility] RBC (Bld) [#/Vol] 4.42 10*6/uL Male: 4.40-5.90; Female: 3.80-5.20 [facility] [email or web address] WBC (Bld) [#/Vol] 9.7 10*3/uL 3.6 - 10.7 10*3/uL [facility] CT Abdomen and Pelvis W cont rast [...] MD Electronically Signed Date/Time: 08/08/2023 8:43 AM [facility] Name[facility] 1965 [id number] Exam Date/Time: 08/08/2023 08:23 Procedure: CT ABDOMEN [...] size when dating back to 2019. In 2020, this nodule measured 4 mm. Major organs: [...] No acute fracture. No suspicious osseous lesions. [facility] Yvette Stringer MD - 08/08/2023 Patient Name: [facility] 1965 [id number] Exam Date/Time: 08/08/2023 08:23 Procedure: CT ABDOMEN [...] size when dating back to 2019. In 2020, this nodule measured 4 mm. Major organs: [...] Signed Date/Time: 08/08/2023 8:43 AM EDT [facility] Radiology Study observation (narrative) [facility] ECG 12 leadon 08-08-2023 Heart rate 111 /min bpm [facility] P [place] [address] [facility] [place] Interval [address] [facility] QRS [place] -[address] [facility] QRSD Interval [address] [facility] QT Interval [address] [facility] QTC Interval [address] [facility] T Wave [place] [address] [facility] Sinus tachycardia Left anterior fascicular block Left ventricular hypertrophy Borderline prolonged QT interval Compared to ECG 06/29/2023 06:27:39 Electronically Signed On 08-08-2023 7:02:41 EDT by Gayle Brown MD - 08/08/2023 IMPRESSION: Sinus tachycardia Left anterior fascicular block Left ventricular hypertrophy Borderline prolonged QT interval Compared to ECG 06/29/2023 06:27:39 Electronically Signed On 08-08-2023 7:02:41 EDT by Gayle Trevizo [facility] Hepatic function 2000 panelo n 08-08-2023 Albumin [Mass/Vol] 4.0 g/dL 3.5 - 5.0 g/dL [facility] ALP [Catalytic activity/Vol] 156 U/L High 38 - 126 U/L [facility] ALT [Catalytic activity/Vol] 39 U/L Male: 0-49 U/L; Female: 0-34 U/L [facility] AST [Catalytic activity/Vol] 30 U/L 15 - 46 U/L [facility] Bilirubin [Mass/Vol] 0.5 mg/dL 0.2 - 1 .3 mg/dL [facility] Bilirubin.conjugated [Mass/Vol] 0.0 mg/dL 0.0 - 0.3 mg/dL [facility] Protein [Mass/Vol] 7.3 g/dL 6.3 - 8.2 g/dL [facility] Lipaseon 08-08-2023 Lipase [Catalytic activity/Vol] 34 U/L 23 - 300 U/L [facility] Lipase [Catalytic activity/V ol]on 08-08-2023 Interpretation and review of laboratory results Normal [facility] No Panel Informationon 08-08 [facility] Interpretation and review of laboratory results Abnormal [facility] POCT glucose meteron 023 Glucose [Mass/Vol] 251 mg/dL High 70 - 100 mg/dL [facility] Interpretation and review of laboratory results Abnormal [facility] Performed by: [facility], [address] [place] [id number] CLIA ID: [id number] [facility] POCT venous blood gason Base excess Calc (BldV) [Moles/Vol] 0.0 mmol/L -3 - 3 mmol/L [facility] CO2 (BldV) [Partial pressure] 35.7 mm[Hg] Low [facility] CO2 [Moles/Vol] 24.9 mmol/L 24.0 - 28.0 mmol/L [facility] Comment on above: Performed by CLIA ID : [id number] [place], [place] ?Device: [id number] Rn Resource Nurse ID: [id number] [facility] HCO3 (Bld) [Moles/Vol] 23.8 mmol/L 23.0 - 27.0 mmol/L [facility] Interpretation and review of laboratory results Abnormal [facility] Oxygen (BldV) [Partial pressure] 40.4 mm[Hg] [facility] Oxygen saturation in Venous blood 77.5 % 60.0 - 80.0 % [facility] pH (BldV) 7.432 [pH] High 7.330 - 7.[address] [facility] Performed by: [facility], [address] [place] [id number] CLIA ID: [id number] [facility] Troponin I.cardiac [Mass/Vol ]on 08-08-2023 Interpretation and review of laboratory results Normal [facility] Patients with high levels of Biotin oral intake (ie >5 mg/day) may have falsely decreased Troponin levels. [facility] Troponin, with Serial Reflex on 08-08-2023 Troponin I.cardiac [Mass/Vol] ng/mL NINF - 0.034 ng/mL [facility] Urinalysis complete panel (U )Ordered By: Jackson Her on 08-08-2023 Bacteria LM.HPF (Urine sed) [#/Area] Few Abnormal Negative /HPF [facility] Bilirubin Ql (U) Negative Negative mg/dL [facility] Clarity (U) Clear Clear [facility] Color (U) Light Yellow Lt. Yellow [facility] Epithelial cells.squamous LM.HPF (Urine sed) [#/Area] 0-2 [facility] Glucose Ql (U) 150 mg/dL Abnormal Normal (<70) [facility] Hemoglobin Ql (U) 0.06 mg/dL Abnormal Negative [facility] Interpretation and review of laboratory results Abnormal [facility] Ketones (U) [Mass/Vol] 10 mg/dL Abnormal Negative [facility] Leukocyte clumps LM.HPF (Urine sed) [#/Area] Rare Abnormal Negative /HPF [facility] Leukocyte esterase Test strip Ql (U) 250 Abnormal Negative Kat/uL [facility] Nitrite Ql (U) Negative Negative [facility] Non-Squamous Epithalial Cells, Urine 0-2 Abnormal Negative /HPF [facility] pH (U) 6.0 [pH] 5.0 - 8.[address] [facility] Protein (U) [Mass/Vol] 200 mg/dL Abnormal Negative [facility] RBC LM.HPF (Urine sed) [#/Area] 3-[address] [facility] Specific gravity (U) [Rel density] High 1.005 - 1.030 [facility] Urobilinogen (U) [Mass/Vol] Normal Normal (0-1) mg/dL [facility] WBC LM.HPF (Urine sed) [#/Area] 6-10 Abnormal [facility] XR Chest Single viewon 08-08 Lungs clear with no acute cardiopulmonary disease process Report Dictated on Electronically Signed By: Chucho Stringer MD Electronically Signed Date/Time: 08/08/2023 7:16 AM EDT [facility] Patient Name: WILL ALVARADO : [...] mediastinal contours are normal. VASCULARITY: Normal BONES:Unremarkable [facility] Yvette Stringer MD - 08/08/2023 [...] Electronically Signed Date/Time: 08/08/2023 7:[address] [facility] Radiology Study observation (narrative) [facility] XR Chest Single viewOrdered By: Yvette Stringer on 08-08-2023 [facility] Work Phone: Basophil percentageOrdered B y: Jared Guzman on 08-04-2023 Chloride [Moles/Vol] 107 mmol/L 98-107 [facility] Glucose [Mass/Vol] 140 mg/dL 74-106 [facility] Comment on above: Fasting Glucose resu lt greater than or equal to 126 mg/dL suggests DIABETES MELLITUS per A.D.A. criteria. Potassium [Moles/Vol] 4.7 mmol/L 3.5-5.1 [facility] Sodium [Moles/Vol] 137 mmol/L 136-145 [facility] Laboratory - Chemistry and C hemistry - challengeOrdered By: Jared Guzman on 08-04-2023 CO2 [Moles/Vol] 27.0 mmol/L 21.0-32.0 [facility] Urea nitrogen/Creatinine [Mass ratio] 29.5 mg/mg 10-20 [facility] No Panel InformationOrdered By: Jared Guzman on 08-04-2023 Estimated GFR (MDRD) Amer 85 mL/min >60 [facility] Comment on above: GFR Calc Estimated GFR (MDRD) Non-Af Amer 71 mL/min >60 [facility] Comment on above: Non- GFR Calc Serum or plasma calcium mauricio urement (mass/volume)Ordered By: Jared Guzman on 08-04-2023 Calcium [Mass/Vol] 8.6 mg/dL 8.5-10.1 [facility] Serum or plasma creatinine m easurement (mass/volume)Ordered By: Jared Guzman on 08-04-2023 Creatinine [Mass/Vol] 0.88 mg/dL 0.55-1.02 [facility] Comment on above: The validity of the calculated GFR & GFRAA in patients over 70 years has not been determined. Clinical correlation is essential. Serum or plasma urea nitroge n measurement (mass/volume)Ordered By: Jared Guzman on 08-04-2023 Urea nitrogen [Mass/Vol] 26 mg/dL 7-18 [facility] Thin prep Papanicolaou smear with manual screeningOrdered By: Jared Guzman on 08-04-2023 Thin prep Papanicolaou smear with manual screening 3 5-15 [facility] Basophil percentageOrdered B y: Jared Guzman on 08-02-2023 Chloride [Moles/Vol] 102 mmol/L 98-107 [facility] Glucose [Mass/Vol] 393 mg/dL 74-106 [facility] Comment on above: Glucose result great er than or equal to 200 mg/dLsuggests DIABETES MELLITUS per A.D.A. criteria. Potassium [Moles/Vol] 6.1 mmol/L 3.5-5.1 [facility] Sodium [Moles/Vol] 131 mmol/L 136-145 [facility] WBC (Bld) [#/Vol] 6.7 10*3/uL 4.4-11.0 [facility] Blood erythrocytes count (nu mber/volume)Ordered By: Jared Guzman on 08-02-2023 RBC (Bld) [#/Vol] 3.97 10*6/uL 4.2-5.4 [facility] Blood hemoglobin measurement (mass/volume)Ordered By: Jared Guzman on 08-02-2023 Hemoglobin (Bld) [Mass/Vol] 10.9 g/dL 12.0-15.0 [facility] Blood platelet mean volumeOr dered By: Jared Guzman on 08-02-2023 Platelet mean volume (Bld) [Entitic vol] 10.3 fL 6.2-12.0 [facility] Determination of erythrocyte mean corpuscular volume (MCV)Ordered By: Jared Guzman on 08-02-2023 MCV (RBC) [Entitic vol] 88.9 fL 81-99 [facility] Hematocrit Auto (Bld) [Volum e fraction]Ordered By: Jared Guzman on 08-02-2023 Hematocrit (Bld) [Volume fraction] 35.3 % 37-47 [facility] Laboratory - Chemistry and C hemistry - challengeOrdered By: Jared Guzman on 08-02-2023 CO2 [Moles/Vol] 22.0 mmol/L 21.0-32.0 [facility] Urea nitrogen/Creatinine [Mass ratio] 26.2 mg/mg 10-20 [facility] Laboratory - Hematology and Cell countsOrdered By: Jared Guzman on 08-02-2023 Erythrocyte distribution width (RBC) [Entitic vol] 48.3 fL 35.1-43.9 [facility] Erythrocyte distribution width (RBC) [Ratio] 14.7 % 11.6-14.6 [facility] MCH (RBC) [Entitic mass] 27.5 pg 27.0-32.0 [facility] MCHC Auto (RBC) [Mass/Vol]Or dered By: Jared Guzman on 08-02-2023 MCHC (RBC) [Mass/Vol] 30.9 g/dL 32-36 [facility] No Panel InformationOrdered By: Jared Guzman on 08-02-2023 Estimated GFR (MDRD) Amer 86 mL/min >60 [facility] Comment on above: GFR Calc Estimated GFR (MDRD) Non-Af Amer 71 mL/min >60 [facility] Comment on above: Non- GFR Calc Platelets bldOrdered By: Mike Guzman on 08-02-2023 Platelets (Bld) [#/Vol] 342 10*3/uL 150-450 [facility] Serum or plasma calcium mauricio urement (mass/volume)Ordered By: Jared Guzman on 08-02-2023 Calcium [Mass/Vol] 8.8 mg/dL 8.5-10.1 [facility] Serum or plasma creatinine m easurement (mass/volume)Ordered By: Jared Guzman on 08-02-2023 Creatinine [Mass/Vol] 0.88 mg/dL 0.55-1.02 [facility] Comment on above: The validity of the calculated GFR & GFRAA in patients over 70 years has not been determined. Clinical correlation is essential. Serum or plasma urea nitroge n measurement (mass/volume)Ordered By: Jared Guzman on 08-02-2023 Urea nitrogen [Mass/Vol] 23 mg/dL 7-18 [facility] Thin prep Papanicolaou smear with manual screeningOrdered By: Jared Guzman on 08-02-2023 Thin prep Papanicolaou smear with manual screening 7 5-15 [facility] Basophil percentageOrdered B y: Jared Guzman on 07-05-2023 Bilirubin [Mass/Vol] 0.30 mg/dL 0.20-1.00 [facility] Comment on above: For patients on eltr ombopag therapy, use of [employer] [place] TBIL is not recommended..Previous reported result: 0.30 mg/dLEdited by: PAULINE on 07/06/23:0945 AMENDED REPORT 07/06/23944 T BILI previously reported as: 0.30 mg/dL For patients on eltrombopag therapy, use of [employer] [place] TBIL is not recommended. Chloride [Moles/Vol] 108 mmol/L 98-107 [facility] Comment on above: .Previous reported r esult: 108 mmol/LEdited by: PAULINE on 07/06/23:0945 AMENDED REPORT 07/06/23944 CL previously reported as: 108 H mmol/L Glucose [Mass/Vol] 149 mg/dL 74-106 [facility] Comment on above: Fasting Glucose resu lt greater than or equal to 126 mg/dL suggests DIABETES MELLITUS per A.D.A. criteria..Previous reported result: 149 mg/dLEdited by: PAULINE on 07/06/23:0943 AMENDED REPORT 07/06/23942 GLU previously reported as: 149 H mg/dL Fasting Glucose result greater than or equal to 126 mg/dL suggests DIABETES MELLITUS per A.D.A. criteria. Potassium [Moles/Vol] 4.4 mmol/L 3.5-5.1 [facility] Comment on above: .Previous reported r esult: 4.4 mmol/LEdited by: PAULINE on 07/06/23:0945 AMENDED REPORT 07/06/23944 K previously reported as: 4.4 mmol/L Protein [Mass/Vol] 6.3 g/dL 6.4-8.2 [facility] Comment on above: .Previous reported r esult: 6.3 g/dLEdited by: PAULINE on 07/06/23:0944 AMENDED REPORT 07/06/23943 T PROT previously reported as: 6.3 L g/dL Sodium [Moles/Vol] 138 mmol/L 136-145 [facility] Comment on above: .Previous reported r esult: 138 mmol/LEdited by: PAULINE on 07/06/23:0945 AMENDED REPORT 07/06/2345 NA previously reported as: 138 mmol/L WBC (Bld) [#/Vol] 7.0 10*3/uL 4.4-11.0 [facility] Comment on above: .Previous reported r esult: 7.0 K/wi1Hvttww by: PAULINE on 07/06/23:0941 AMENDED REPORT 07/06/23940 WBC previously reported as: 7.0 K/mm3 Blood erythrocytes count (nu mber/volume)Ordered By: Jared Guzman on 07-05-2023 RBC (Bld) [#/Vol] 4.01 10*6/uL 4.2-5.4 [facility] Comment on above: .Previous reported r esult: 4.01 M/vt2Yoxftw by: PAULINE on 07/06/23:0941 AMENDED REPORT 07/06/23940 RBC previously reported as: 4.01 L M/mm3 Blood hemoglobin measurement (mass/volume)Ordered By: Jared Guzman on 07-05-2023 Hemoglobin (Bld) [Mass/Vol] 10.9 g/dL 12.0-15.0 [facility] Comment on above: .Previous reported r esult: 10.9 g/dLEdited by: PAULINE on 07/06/23:0941 AMENDED REPORT 07/06/23940 HGB previously reported as: 10.9 L g/dL Blood platelet mean volumeOr dered By: Jared Guzman on 07-05-2023 Platelet mean volume (Bld) [Entitic vol] 10.1 fL 6.2-12.0 [facility] Comment on above: .Previous reported r esult: 10.1 flEdited by: PAULINE on 07/06/23:0942 AMENDED REPORT 07/06/23941 MPV previously reported as: 10.1 fl Determination of erythrocyte mean corpuscular volume (MCV)Ordered By: Jared Guzman on 07-05-2023 MCV (RBC) [Entitic vol] 89.3 fL 81-99 [facility] Comment on above: .Previous reported r esult: 89.3 fLEdited by: PAULINE on 07/06/23:0942 AMENDED REPORT 07/06/23941 MCV previously reported as: 89.3 fL Hematocrit Auto (Bld) [Volum e fraction]Ordered By: Jared Guzman on 07-05-2023 Hematocrit (Bld) [Volume fraction] 35.8 % 37-47 [facility] Comment on above: .Previous reported r esult: 35.8 %Edited by: PAULINE on 07/06/23:0942 AMENDED REPORT 07/06/23941 HCT previously reported as: 35.8 L % Laboratory - Chemistry and C hemistry - challengeOrdered By: Jared Guzman on 07-05-2023 ALP [Catalytic activity/Vol] 155 U/L 45-117 [facility] Comment on above: ..Previous reported result: 155 U/LEdited by: PAULINE on 07/06/23:0945 AMENDED REPORT 07/06/23944 ALK P previously reported as: 155 H U/L ALT [Catalytic activity/Vol] 43 U/L 13-56 [facility] Comment on above: .Previous reported r esult: 43 U/LEdited by: PAULINE on 07/06/23:0945 AMENDED REPORT 07/06/23944 ALT previously reported as: 43 U/L CO2 [Moles/Vol] 26.0 mmol/L 21.0-32.0 [facility] Comment on above: .Previous reported r esult: 26.0 mmol/LEdited by: PAULINE on 07/06/23:0946 AMENDED REPORT 07/06/2346 CO2 previously reported as: 26.0 mmol/L Globulin (S) [Mass/Vol] 3.6 g/dL 2.2-4.2 [facility] Comment on above: .Previous reported r esult: 3.6 g/dLEdited by: PAULINE on 07/06/23:0944 AMENDED REPORT 07/06/2344 GLOB previously reported as: 3.6 g/dL Urea nitrogen/Creatinine [Mass ratio] 23.7 mg/mg 10-20 [facility] Comment on above: .Previous reported r esult: 23.5 RATIOEdited by: PAULINE on 07/06/23:0943 AMENDED REPORT 07/06/23942 BUN/CRE previously reported as: 23.5 H RATIO Laboratory - Hematology and Cell countsOrdered By: Jared Guzman on 07-05-2023 Erythrocyte distribution width (RBC) [Entitic vol] 47.5 fL 35.1-43.9 [facility] Comment on above: .Previous reported r esult: 47.5 flEdited by: PAULINE on 07/06/23:0942 AMENDED REPORT 07/06/23941 RDW SD previously reported as: 47.5 H fl Erythrocyte distribution width (RBC) [Ratio] 14.5 % 11.6-14.6 [facility] Comment on above: .Previous reported r esult: 14.5 %Edited by: PAULINE on 07/06/23:0942 AMENDED REPORT 07/06/23941 RDW CV previously reported as: 14.5 % MCH (RBC) [Entitic mass] 27.2 pg 27.0-32.0 [facility] Comment on above: .Previous reported r esult: 27.2 pgEdited by: PAULINE on 07/06/23:0942 AMENDED REPORT 07/06/23941 MCH previously reported as: 27.2 pg MCHC Auto (RBC) [Mass/Vol]Or dered By: Jared Guzman on 07-05-2023 MCHC (RBC) [Mass/Vol] 30.4 g/dL 32-36 [facility] Comment on above: .Previous reported r esult: 30.4 g/dLEdited by: PAULINE on 07/06/23:0942 AMENDED REPORT 07/06/23941 MCHC previously reported as: 30.4 L g/dL No Panel InformationOrdered By: Jared Guzman on 07-05-2023 Estimated GFR (MDRD) Amer 137 mL/min >60 [facility] Comment on above: GFR Calc.Previous reported result: 135 mL/minEdited by: PAULINE on 07/06/23:0943 AMENDED REPORT 07/06/23942 EST GFR - AA previously reported as: 135 mL/min GFR Calc Estimated GFR (MDRD) Non-Af Amer 113 mL/min >60 [facility] Comment on above: Non- GFR Calc.Previous reported result: 112 mL/minEdited by: PAULINE on 07/06/23:0943 AMENDED REPORT 07/06/23942 EST GFR previously reported as: 112 mL/min Non- GFR Calc Platelets bldOrdered By: Mike Guzman on 07-05-2023 Platelets (Bld) [#/Vol] 352 10*3/uL 150-450 [facility] Comment on above: .Previous reported r esult: 352 K/kq4Gmacas by: PAULINE on 07/06/23:0942 AMENDED REPORT 07/06/23941 PLT previously reported as: 352 K/mm3 Serum or plasma albumin mauricio urement (mass/volume)Ordered By: Jared Guzman on 07-05-2023 Albumin [Mass/Vol] 2.7 g/dL 3.2-5.0 [facility] Comment on above: .Previous reported r esult: 2.7 g/dLEdited by: PAULINE on 07/06/23:0944 AMENDED REPORT 07/06/23943 ALB previously reported as: 2.7 L g/dL Serum or plasma albumin/glob ulin mass ratioOrdered By: Jared Guzman on 07-05-2023 Albumin/Globulin [Mass ratio] 0.8 {ratio} 0.9-2.4 [facility] Comment on above: .Previous reported r esult: 0.8 RATIOEdited by: PAULINE on 07/06/23:0944 AMENDED REPORT 07/06/23943 A/G previously reported as: 0.8 L RATIO Serum or plasma calcium mauricio urement (mass/volume)Ordered By: Jared Guzman on 07-05-2023 Calcium [Mass/Vol] 8.8 mg/dL 8.5-10.1 [facility] Comment on above: .Previous reported r esult: 8.8 mg/dLEdited by: PAULINE on 07/06/23:0944 AMENDED REPORT 07/06/2344 CA previously reported as: 8.8 mg/dL Serum or plasma creatinine m easurement (mass/volume)Ordered By: Jared Guzman on 07-05-2023 Creatinine [Mass/Vol] 0.76 mg/dL 0.55-1.02 [facility] Comment on above: The validity of [...] on 07-05-2023 Urea nitrogen [Mass/Vol] 18 mg/dL 7 [facility] Comment on above: .Previous reported r esult: 18 mg/dLEdited by: PAULINE on 07/06/23:0943 AMENDED REPORT 07/06/2343 BUN previously reported as: 18 mg/dL Thin prep Papanicolaou smear with manual screeningOrdered By: Jared Guzman on 07-05-2023 Thin prep Papanicolaou smear with manual screening 15 U/L 15-37 [facility] Comment on above: .Previous reported r esult: 15 U/LEdited by: PAULINE on 07/06/23:0945 AMENDED REPORT 07/06/2345 AST previously reported as: 15 U/L Thin prep Papanicolaou smear with manual screening 4 5-15 [facility] Comment on above: .Previous reported r esult: 4 Edited by: PAULINE on 07/06/23:0946 AMENDED REPORT 07/06/2346 GAP previously reported as: 4 L Laboratory - Chemistry and C hemistry - challengeon 07-01-2023 Glucose [Mass/Vol] 391 mg/dL High 70 - 100 mg/dL [facility] Glucose [Mass/Vol] 242 mg/dL High 70 - 100 mg/dL [facility] No Panel Informationon 07-01 Interpretation and review of laboratory results Abnormal [facility]formed by: [facility], [address] [facility] [address] CLIA ID: [id number] [facility] Interpretation and review of laboratory results Abnormal [facility]formed by: [facility] [employer] [facility] [facility], [address] [facility] [address] CLIA ID: [id number] [facility] - Chemistry and C hemistry - challengeon 06-30-2023 Glucose [Mass/Vol] 101 mg/dL High 70 - 100 mg/dL [facility] Glucose [Mass/Vol] 131 mg/dL High 70 - 100 mg/dL [facility] Glucose [Mass/Vol] 251 mg/dL High 70 - 100 mg/dL [facility] Glucose [Mass/Vol] 317 mg/dL High 70 - 100 mg/dL [email or web address] No Panel Informationon 06-30 Interpretation and review of laboratory results Abnormal [facility]: [facility], [address] [place] [address] CLIA ID: [id number] [facility] Interpretation and review of laboratory results Abnormal [facility]formed by: [facility] [employer] [facility], [address] [place] [address] CLIA ID: [id number] [facility] Art Benavidez M D - 06/30/2023 IMPRESSION: Sinus rhythm Abnormal R-wave progression, late transition Left ventricular hypertrophy Electronically Signed On 06-30-2023 12:43:24 EDT by Art Benavidez [facility] Interpretation and review of laboratory results Abnormal [facility] by: [facility] [employer] [facility], [address] [place] [address] CLIA ID: [id number] [facility] Interpretation and review of laboratory results Abnormal [facility]formed by: [facility], [address] [facility] [address] CLIA ID: [id number] [facility] No Panel InformationOrdered By: Art Benavidez on 06-30-2023 P [place] 37 degrees [employer] Work Phone: [place] Interval 166 ms [employer] Work Phone: QRS [place] -31 degrees [employer] Work Phone: QRSD Interval 112 ms [employer] Work Phone: QT Interval 413 ms [employer] Work Phone: QTC Interval 466 ms [employer] Work Phone: T Wave [place] 22 degrees [employer] Work Phone: [employer] Work Phone: Vital signsOrdered By: Laron Benavidez on 06-30-2023 Heart rate 76 /min bpm [employer] Work Phone: CBC panel Auto (Bld)Ordered By: Alex Kwok on 06-29-2023 Erythrocyte distribution width (RBC) [Ratio] 15.3 % High 11.5 - 14.5 % [email or web address] Hematocrit (Bld) [Volume fraction] 32.6 % [email or web address] Hemoglobin (Bld) [Mass/Vol] 10.8 g/dL Low 11.7 - 18.0 g/dL [email or web address] Interpretation and review of laboratory results Abnormal [facility] [email or web address] MCH (RBC) [Entitic mass] 27.5 pg 26.0 - 34.0 pg [facility] [email or web address] MCHC (RBC) [Mass/Vol] 33.2 % 32.0 - 36.0 % [email or web address] [email or web address] MCV (RBC) [Entitic vol] 82.9 fL 80.0 - 98.0 fL [email or web address] [email or web address] Platelet mean volume (Bld) [Entitic vol] 7.7 fL 7.4 - 12.4 fL [email or web address] Platelets (Bld) [#/Vol] 361 10*3/uL 140 - 440 10*3/uL [facility] [email or web address] RBC (Bld) [#/Vol] 3.94 10*6/uL [facility] [employer] WBC (Bld) [#/Vol] 9.2 10*3/uL 3.6 - 10.7 10*3/uL [facility] [email or web address] [facility] [employer] Comprehensive metabolic 1998 panelon 06-29-2023 Albumin [Mass/Vol] 3.4 g/dL Low 3.5 - 5.0 g/dL [facility] ALP [Catalytic activity/Vol] 121 U/L 38 - 126 U/L [facility] ALT [Catalytic activity/Vol] 41 U/L [facility] Anion gap [Moles/Vol] 6 mmol/L 3 - 13 mmol/L [facility] AST [Catalytic activity/Vol] 32 U/L 15 - 46 U/L [facility] Bilirubin [Mass/Vol] 0.3 mg/dL 0.2 - 1 .3 mg/dL [facility] Calcium [Mass/Vol] 8.3 mg/dL Low 8.4 - 10. 4 mg/dL [facility] Chloride [Moles/Vol] 103 mmol/L 98 - 10 7 mmol/L [facility] CO2 [Moles/Vol] 27 mmol/L 22 - 30 mmol/L [facility] Creatinine [Mass/Vol] 0.79 mg/dL [facility] GFR/1.73 sq M.predicted MDRD (S/P/Bld) [Vol rate/Area] 87.9 mL/min/{1.73_m2} - PINF [facility] Comment on above: Calculation based on the Chronic Kidney Disease Epidemiology Collaboration (CKD-EPI) equation refit without adjustment for race Glucose [Mass/Vol] 193 mg/dL High 70 - 100 mg/dL [facility] Interpretation and review of laboratory results Abnormal [facility] Potassium [Moles/Vol] 5.0 mmol/L 3.5 - 5.1 mmol/L [facility] Protein [Mass/Vol] 6.3 g/dL 6.3 - 8.2 g/dL [facility] Sodium [Moles/Vol] 136 mmol/L 135 - 145 mmol/L [facility] Urea nitrogen [Mass/Vol] 23 mg/dL [facility] - Chemistry and C hemistry - challengeon 06-29-2023 Glucose [Mass/Vol] 180 mg/dL High 70 - 100 mg/dL [facility] Glucose [Mass/Vol] 338 mg/dL High 70 - 100 mg/dL [facility] Glucose [Mass/Vol] 244 mg/dL High 70 - 100 mg/dL [facility] Glucose [Mass/Vol] 234 mg/dL High 70 - 100 mg/dL [facility] No Panel Informationon 06-29 Interpretation and review of laboratory results Abnormal [facility] Performed by: [facility], [address] [place] [address], [facility] [address] CLIA ID: [id number] [facility] Interpretation and review of laboratory results Abnormal [facility]formed by: [facility] [employer] [facility], [address] [facility], [facility] [address] CLIA ID: [id number] [facility] Interpretation and review of laboratory results Abnormal [facility] Performed by: [facility] [employer] [facility], [address] [facility], [facility] [address] CLIA ID: [id number] [facility] Interpretation and review of laboratory results Abnormal [facility] Performed by: [facility] [employer] [facility], [address] [facility], [facility] [address] CLIA ID: [id number] [facility] Basic metabolic 1998 panelon 06-28-2023 Anion gap [Moles/Vol] 7 mmol/L 3 - 13 mmol/L [facility] Calcium [Mass/Vol] 9.1 mg/dL 8.4 - 10. 4 mg/dL [facility] Chloride [Moles/Vol] 102 mmol/L 98 - 10 7 mmol/L [facility] CO2 [Moles/Vol] 24 mmol/L 22 - 30 mmol/L [facility] Creatinine [Mass/Vol] 0.64 mg/dL [facility] GFR/1.73 sq M.predicted MDRD (S/P/Bld) [Vol rate/Area] - PINF [facility] Comment on above: Calculation based on the Chronic Kidney Disease Epidemiology Collaboration (CKD-EPI) equation refit without adjustment for race Glucose [Mass/Vol] 194 mg/dL High 70 - 100 mg/dL [facility] Interpretation and review of laboratory results Abnormal [facility] Potassium [Moles/Vol] 5.0 mmol/L 3.5 - 5.1 mmol/L [facility] Sodium [Moles/Vol] 133 mmol/L Low 135 - 145 mmol/L [facility] Urea nitrogen [Mass/Vol] 20 mg/dL [facility] CBC W Auto Differential pane l (Bld)Ordered By: Joel Houston on 06-28-2023 Basophils (Bld) [#/Vol] 0.1 10*3/uL 0.0 - 0.2 10*3/uL [facility] Basophils/100 WBC (Bld) 0.6 % 0.0 - 2.0 % [facility] Eosinophils (Bld) [#/Vol] 0.0 10*3/uL 0.0 - 0.5 10*3/uL [facility] Eosinophils/100 WBC (Bld) 0.1 % Low 1.0 - 6.0 % [facility] Erythrocyte distribution width (RBC) [Ratio] 15.4 % High 11.5 - 14.5 % [facility] Hematocrit (Bld) [Volume fraction] 35.1 % [facility] Hemoglobin (Bld) [Mass/Vol] 11.6 g/dL Low 11.7 - 18.0 g/dL [facility] Interpretation and review of laboratory results Abnormal [facility] Lymphocytes (Bld) [#/Vol] 0.6 10*3/uL Low 1.0 - 4.3 10*3/uL [facility] Lymphocytes/100 WBC (Bld) 5.4 % Low 20.0 - 40.0 % [facility] MCH (RBC) [Entitic mass] 27.3 pg 26.0 - 34.[address] [facility] MCHC (RBC) [Mass/Vol] 33.2 % 32.0 - 36.0 % [facility] MCV (RBC) [Entitic vol] 82.3 fL 80.0 - 98.[address] [facility] Monocytes (Bld) [#/Vol] 0.4 10*3/uL 0.0 - 0.8 10*3/uL [facility] Monocytes/100 WBC (Bld) 3.6 % 2.0 - 10.0 % [facility] Neutrophils (Bld) [#/Vol] 10.6 10*3/uL High 1.8 - 7.0 10*3/uL [facility] Neutrophils/100 WBC (Bld) 90.3 % High 40.0 - 80.0 % [facility] Nucleated RBC/100 WBC (Bld) [Ratio] 0.0 % [facility] Platelet mean volume (Bld) [Entitic vol] 7.9 fL 7.4 - 12.[address] [facility] Platelets (Bld) [#/Vol] 384 10*3/uL 140 - 440 10*3/uL [facility] RBC (Bld) [#/Vol] 4.26 10*6/uL [facility] WBC (Bld) [#/Vol] 11.8 10*3/uL High 3.6 - 10.7 10*3/uL [facility] CTA Chest vessels WO and W c [...] Bones: Multilevel flowing osteophytes consistent with DISH. [facility] Yvette Stringer MD - 06/28/2023 [...] Electronically Signed Date/Time: 06/28/2023 4:37 AM EDT [facility] [email or web address] [facility] [email or web address] Radiology Study observation (narrative) [facility] [email or web address] Laboratory - Chemistry and C hemistry - challengeon 06-28-2023 Glucose [Mass/Vol] 223 mg/dL High 70 - 100 mg/dL [facility] [email or web address] Glucose [Mass/Vol] 270 mg/dL High 70 - 100 mg/dL [facility] [email or web address] Troponin I.cardiac [Mass/Vol] ng/mL 0.000 - 0.034 ng/mL [facility] [employer] Glucose [Mass/Vol] 253 mg/dL High 70 - 100 mg/dL [facility] [employer] Glucose [Mass/Vol] 247 mg/dL High 70 - 100 mg/dL [facility] [email or web address] Troponin I.cardiac [Mass/Vol] ng/mL 0.000 - 0.034 ng/mL [facility] [email or web address] Natriuretic peptide B [Mass/ Vol]on 06-28-2023 Interpretation and review of laboratory results Normal [facility] Natriuretic peptide B (Bld) [Mass/Vol] 150 pg/mL <20 - 300 [facility] [email or web address] No Panel Informationon 06-28 Interpretation and review of laboratory results Abnormal [facility]formed by: [facility], [address] [place], [facility] [address] CLIA ID: [id number] [facility] Interpretation and review of laboratory results Abnormal [facility]formed by: [facility], [address], [facility] [address] CLIA ID: [id number] [facility] Interpretation and review of laboratory results Abnormal [facility] Performed by: [facility], [address], [facility] [address] CLIA ID: [id number] [facility] Interpretation and review of laboratory results Abnormal [facility] Performed by: [facility], [address], [facility] [address] CLIA ID: [id number] [facility] P [place] [address] [facility] [place] Interval [address] [facility] QRS [place] -[address] [facility] QRSD Interval [address] [facility] QT Interval [address] [facility] QTC Interval [address] [facility] T Wave [place] [address] [facility] Sinus tachycardia Nonspecific IVCD with LAD Left ventricular hypertrophy Minimal ST elevation, anterolateral leads Electronically Signed On 06-28-2023 5:20:13 EDT by Rosaura Mustafa CV Rosaura Schafer, - 06/28/2023 IMPRESSION: Sinus tachycardia Nonspecific IVCD with LAD Left ventricular hypertrophy Minimal ST elevation, anterolateral leads Electronically Signed On 06-28-2023 5:20:13 EDT by Rosaura Mustafa [facility] Troponin I.cardiac [Mass/Vol ]on 06-28-2023 Interpretation and review of laboratory results Normal [facility] Patients with high levels of Biotin oral intake (ie >5 mg/day) may have falsely decreased Troponin levels. [facility] Interpretation and review of laboratory results Normal [facility] Patients with high levels of Biotin oral intake (ie >5 mg/day) may have falsely decreased Troponin levels. [facility] Vital signson 06-28-2023 Heart rate 105 /min bpm [facility] XR Chest Single viewon 06-28 Low lung volumes. No acute infiltrate or effusion. Report Dictated on Electronically Signed By: Chucho Stringer MD Electronically Signed Date/Time: 06/28/2023 3:08 AM EDT [facility] 1965 [id number] Exam Date/Time: 06/28/2023 03:08 Procedure: XR CHEST 1 VIEW Ordering Provider: MUSTAFA KATHRYN Reason For Exam: CHEST PAIN CLINICAL INDICATION: CHEST PAIN COMPARISON: 12/08/2020 TECHNIQUE: Single portable AP radiograph of the chest. FINDINGS: LUNGS/PLEURA:Lung volumes are low. No areas of consolidation or effusion. Trachea is midline. No pneumothorax. MEDIASTINUM:Heart size and mediastinal contours are normal. VASCULARITY: Normal BONES:Unremarkable SUPPORT LINES: None OTHER: [facility] Yvette Stringer MD - 06/28/2023 Patient Name: [facility]ACINTO [facility] 1965 [id number] Exam Date/Time: 06/28/2023 03:08 Procedure: XR CHEST [...] Electronically Signed Date/Time: 06/28/2023 3:08 AM EDT [email or web address] Radiology Study observation (narrative) [employer] XR Chest Single viewOrdered By: Yvette Stringer on 06-28-2023 [employer] Work Phone: Basophil percentageOrdered B y: Jared Guzman on 05-31-2023 Chloride [Moles/Vol] 106 mmol/L 98-107 [facility] Glucose [Mass/Vol] 227 mg/dL 74-106 [facility] Comment on above: Glucose result great er than or equal to 200 mg/dLsuggests DIABETES MELLITUS per A.D.A. criteria. Potassium [Moles/Vol] 4.8 mmol/L 3.5-5.1 [facility] Sodium [Moles/Vol] 137 mmol/L 136-145 [facility] WBC (Bld) [#/Vol] 7.7 10*3/uL 4.4-11.0 [facility] Blood erythrocytes count (nu mber/volume)Ordered By: Jared Guzman on 05-31-2023 RBC (Bld) [#/Vol] 3.90 10*6/uL 4.6-6.2 [facility] Blood hemoglobin measurement (mass/volume)Ordered By: Jared Guzman on 05-31-2023 Hemoglobin (Bld) [Mass/Vol] 10.4 g/dL 13.0-16.5 [facility] Blood platelet mean volumeOr dered By: Jared Guzman on 05-31-2023 Platelet mean volume (Bld) [Entitic vol] 9.9 fL 6.2-12.0 [facility] Determination of erythrocyte mean corpuscular volume (MCV)Ordered By: Jared Guzman on 05-31-2023 MCV (RBC) [Entitic vol] 89.7 fL 80-94 [facility] Hematocrit Auto (Bld) [Volum e fraction]Ordered By: Jared Guzman on 05-31-2023 Hematocrit (Bld) [Volume fraction] 35.0 % 40-54 [facility] - Chemistry and C hemistry - challengeOrdered By: Jared Guzman on 05-31-2023 CO2 [Moles/Vol] 26.0 mmol/L 21.0-32.0 [facility] Urea nitrogen/Creatinine [Mass ratio] 31.0 mg/mg 10-20 [facility] - Hematology and Cell countsOrdered By: Jared Guzman on 05-31-2023 Erythrocyte distribution width (RBC) [Entitic vol] 46.2 fL 35.1-43.9 [facility] Erythrocyte distribution width (RBC) [Ratio] 14.3 % 11.6-14.6 [facility] MCH (RBC) [Entitic mass] 26.7 pg 27.0-32.0 [facility] MCHC Auto (RBC) [Mass/Vol]Or dered By: Jared Guzman on 05-31-2023 MCHC (RBC) [Mass/Vol] 29.7 g/dL 32-36 [facility] No Panel InformationOrdered By: Jared Guzman on 05-31-2023 Estimated GFR (MDRD) Amer 133 mL/min >60 [facility] Comment on above: GFR Calc Estimated GFR (MDRD) Non-Af Amer 110 mL/min >60 [facility] Comment on above: Non- GFR Calc Platelets bldOrdered By: Pet santiago Guzman on 05-31-2023 Platelets (Bld) [#/Vol] 400 10*3/uL 150-450 [facility] Serum or plasma calcium mauricio urement (mass/volume)Ordered By: Jared Guzman on 05-31-2023 Calcium [Mass/Vol] 8.9 mg/dL 8.5-10.1 [facility] Serum or plasma creatinine m easurement (mass/volume)Ordered By: Jared Guzman on 05-31-2023 Creatinine [Mass/Vol] 0.78 mg/dL 0.70-1.30 [facility] Comment on above: The validity of the calculated GFR & GFRAA in patients over 70 years has not been determined. Clinical correlation is essential. Serum or plasma urea nitroge n measurement (mass/volume)Ordered By: Jared Guzman on 05-31-2023 Urea nitrogen [Mass/Vol] 24 mg/dL 7-18 [facility] Thin prep Papanicolaou smear with manual screeningOrdered By: Jared Guzman on 05-31-2023 Thin prep Papanicolaou smear with manual screening 5 5-15 [facility] Whole blood hemoglobin A1c/t otal hemoglobin ratio (mass fraction)Ordered By: Jared Guzman on 05-31-2023 HbA1c (Bld) [Mass fraction] 8.2 % 3.8-5.6 [facility] Comment on above: Normal < 5.7 % Predi abetic 5.7 - 6.4 % Diabetic >or= 6.5 % Please note range changes. Basophil percentageOrdered B y: Jared Guzman on 04-19-2023 Bilirubin [Mass/Vol] 0.20 mg/dL 0.20-1.00 [facility] Comment on above: For patients on eltr ombopag therapy, use of Dimension [place] TBIL is not recommended. Chloride [Moles/Vol] 104 mmol/L 98-107 [facility] Cholesterol [Mass/Vol] 136 mg/dL <[address] [facility] Comment on above: <200 mg/dL Desirable 200-240 mg/dL Borderline >240 mg/dL High Risk Glucose [Mass/Vol] 252 mg/dL 74-106 [facility] Comment on above: Glucose result great er than or equal to 200 mg/dLsuggests DIABETES MELLITUS per A.D.A. criteria. Potassium [Moles/Vol] 4.9 mmol/L 3.5-5.1 [facility] Protein [Mass/Vol] 6.5 g/dL 6.4-8.2 [facility] Sodium [Moles/Vol] 136 mmol/L 136-145 [facility] Triglyceride [Mass/Vol] 173 mg/dL <199 [facility] Comment on above: The drugs N-Acetylcy steine and Metamizole may falsely depress this assay.Serum Triglycerides Reference Interval Normal <150 mg/dL Borderline high 150 - 199 mg/dL High 200 - 499 mg/dL Very High > or = 500 mg/dL WBC (Bld) [#/Vol] 7.4 10*3/uL 4.4-11.0 [facility] Blood erythrocytes count (nu mber/volume)Ordered By: Jared Guzman on 04-19-2023 RBC (Bld) [#/Vol] 4.12 10*6/uL 4.6-6.2 [facility] Blood hemoglobin measurement (mass/volume)Ordered By: Jared Guzman on 04-19-2023 Hemoglobin (Bld) [Mass/Vol] 11.2 g/dL 13.0-16.5 [facility] Blood platelet mean volumeOr dered By: Jared Guzman on 04-19-2023 Platelet mean volume (Bld) [Entitic vol] 10.2 fL 6.2-12.0 [facility] Determination of erythrocyte mean corpuscular volume (MCV)Ordered By: Jared Guzman on 04-19-2023 MCV (RBC) [Entitic vol] 90.8 fL 80-94 [facility] Hematocrit Auto (Bld) [Volum e fraction]Ordered By: Jared Guzman on 04-19-2023 Hematocrit (Bld) [Volume fraction] 37.4 % 40-54 [facility] - Chemistry and C hemistry - challengeOrdered By: Jared Guzman on 04-19-2023 ALP [Catalytic activity/Vol] 176 U/L 45-117 [facility] ALT [Catalytic activity/Vol] 39 U/L 16-61 [facility] CO2 [Moles/Vol] 26.0 mmol/L 21.0-32.0 [facility] Globulin (S) [Mass/Vol] 3.5 g/dL 2.2-4.2 [facility] Urea nitrogen/Creatinine [Mass ratio] 23.7 mg/mg 10-20 [facility] - Hematology and Cell countsOrdered By: Jared Guzman on 04-19-2023 Erythrocyte distribution width (RBC) [Entitic vol] 46.9 fL 35.1-43.9 [facility] Erythrocyte distribution width (RBC) [Ratio] 14.1 % 11.6-14.6 [facility] MCH (RBC) [Entitic mass] 27.2 pg 27.0-32.0 [facility] MCHC Auto (RBC) [Mass/Vol]Or dered By: Jared Guzman on 04-19-2023 MCHC (RBC) [Mass/Vol] 29.9 g/dL 32-36 [facility] No Panel InformationOrdered By: Jared Guzman on 04-19-2023 Estimated GFR (MDRD) Amer 128 mL/min >60 [facility] Comment on above: GFR Calc Estimated GFR (MDRD) Non-Af Amer 106 mL/min >60 [facility] Comment on above: Non- GFR Calc Platelets bldOrdered By: Mike Guzman on 04-19-2023 Platelets (Bld) [#/Vol] 361 10*3/uL 150-450 [facility] Serum or plasma albumin mauricio urement (mass/volume)Ordered By: Jared Guzman on 04-19-2023 Albumin [Mass/Vol] 3.0 g/dL 3.2-5.0 [facility] Serum or plasma albumin/glob ulin mass ratioOrdered By: Jared Guzman on 04-19-2023 Albumin/Globulin [Mass ratio] 0.9 {ratio} 0.9-2.4 [facility] Serum or plasma calcium mauricio urement (mass/volume)Ordered By: Jared Guzman on 04-19-2023 Calcium [Mass/Vol] 8.8 mg/dL 8.5-10.1 [facility] Serum or plasma cholesterol in HDL measurement (mass/volume)Ordered By: Jared Guzman on 04-19-2023 Cholesterol in HDL [Mass/Vol] 33 mg/dL >40 [facility] Comment on above: The drugs N-Acetylcy steine and Metamizole may falsely depress this assay. Reference Range HDL <40 mg/dL Low HDL Cholesterol HDL >or= 60 mg/dL High HDL Cholesterol Serum or plasma cholesterol in VLDL measurement (mass/volume)Ordered By: Jared Guzman on 04-19-2023 Cholesterol in VLDL [Mass/Vol] 35 mg/dL 5-40 [facility] Serum or plasma creatinine m easurement (mass/volume)Ordered By: Jared Guzman on 04-19-2023 Creatinine [Mass/Vol] 0.80 mg/dL 0.70-1.30 [facility] Comment on above: The validity of the calculated GFR & GFRAA in patients over 70 years has not been determined. Clinical correlation is essential. Serum or plasma low density lipoprotein (LDL) cholesterol measurement (mass/volume)Ordered By: Jared Guzman on 04-19-2023 Cholesterol in LDL [Mass/Vol] 68 mg/dL 0-130 [facility] Serum or plasma urea nitroge n measurement (mass/volume)Ordered By: Jared Guzman on 04-19-2023 Urea nitrogen [Mass/Vol] 19 mg/dL 7-18 [facility] Thin prep Papanicolaou smear with manual screeningOrdered By: Jared Guzman on 04-19-2023 Thin prep Papanicolaou smear with manual screening 21 U/L 15-37 [facility] Thin prep Papanicolaou smear with manual screening 6 5-15 [facility] Whole blood hemoglobin A1c/t otal hemoglobin ratio (mass fraction)Ordered By: Jared Guzman on 04-19-2023 HbA1c (Bld) [Mass fraction] 9.0 % 3.8-5.6 [facility] Comment on above: Normal < 5.7 % Predi abetic 5.7 - 6.4 % Diabetic >or= 6.5 % Please note range changes. Whole blood hemoglobin A1c/t otal hemoglobin ratio (mass fraction)Ordered By: Jared Guzman on 03-30-2023 HbA1c (Bld) [Mass fraction] 9.4 % 3.8-5.6 [facility] Comment on above: Normal < 5.7 % Predi abetic 5.7 - 6.4 % Diabetic >or= 6.5 % Please note range changes. Basophil percentageOrdered B y: Jared Guzman on 03-15-2023 Cholesterol [Mass/Vol] 142 mg/dL <[address] [facility] Comment on above: <200 mg/dL Desirable 200-240 mg/dL Borderline >240 mg/dL High Risk Triglyceride [Mass/Vol] 149 mg/dL <199 [facility] Comment on above: The drugs N-Acetylcy steine and Metamizole may falsely depress this assay.Serum Triglycerides Reference Interval Normal <150 mg/dL Borderline high 150 - 199 mg/dL High 200 - 499 mg/dL Very High > or = 500 mg/dL Serum or plasma cholesterol in HDL measurement (mass/volume)Ordered By: Jared Guzman on 03-15-2023 Cholesterol in HDL [Mass/Vol] 32 mg/dL >40 [facility] Comment on above: The drugs N-Acetylcy steine and Metamizole may falsely depress this assay. Reference Range HDL <40 mg/dL Low HDL Cholesterol HDL >or= 60 mg/dL High HDL Cholesterol Serum or plasma cholesterol in VLDL measurement (mass/volume)Ordered By: Jared Guzman on 03-15-2023 Cholesterol in VLDL [Mass/Vol] 30 mg/dL 5-40 [facility] Serum or plasma low density lipoprotein (LDL) cholesterol measurement (mass/volume)Ordered By: Jared Guzman on 03-15-2023 Cholesterol in LDL [Mass/Vol] 80 mg/dL 0-130 [facility] Beta Hydroxybutyrateon 03-08 Beta hydroxybutyrate [Mass/Vol] 1.94 mg/dL 0.20 - 2.81 mg/dL [facility] Interpretation and review of laboratory results Normal [facility] CBC W Auto Differential pane l (Bld)Ordered By: Hina Jaramillo on 03-08-2023 Basophils (Bld) [#/Vol] 0.1 10*3/uL 0.0 - 0.2 10*3/uL [facility] Basophils/100 WBC (Bld) 0.5 % 0.0 - 2.0 % [facility] Eosinophils (Bld) [#/Vol] 0.1 10*3/uL 0.0 - 0.5 10*3/uL [facility] Eosinophils/100 WBC (Bld) 0.4 % Low 1.0 - 6.0 % [facility] Erythrocyte distribution width (RBC) [Ratio] 14.6 % High 11.5 - 14.5 % [facility] Hematocrit (Bld) [Volume fraction] 37.8 % [facility] Hemoglobin (Bld) [Mass/Vol] 12.6 g/dL [facility] Interpretation and review of laboratory results Abnormal [facility] Lymphocytes (Bld) [#/Vol] 1.1 10*3/uL 1.0 - 4.3 10*3/uL [facility] Lymphocytes/100 WBC (Bld) 8.4 % Low 20.0 - 40.0 % [facility] MCH (RBC) [Entitic mass] 27.6 pg 26.0 - 34.[address] [facility] MCHC (RBC) [Mass/Vol] 33.3 % 32.0 - 36.0 % [facility] MCV (RBC) [Entitic vol] 82.8 fL 80.0 - 98.[address] [facility] Monocytes (Bld) [#/Vol] 0.7 10*3/uL 0.0 - 0.8 10*3/uL [facility] Monocytes/100 WBC (Bld) 5.5 % 2.0 - 10.0 % [facility] Neutrophils (Bld) [#/Vol] 10.9 10*3/uL High 1.8 - 7.0 10*3/uL [facility] Neutrophils/100 WBC (Bld) 85.2 % High 40.0 - 80.0 % [facility] Nucleated RBC/100 WBC (Bld) [Ratio] 0.1 % [email or web address] Platelet mean volume (Bld) [Entitic vol] 8.2 fL 7.4 - 12.4 fL [email or web address] Platelets (Bld) [#/Vol] 362 10*3/uL 140 - 440 10*3/uL [email or web address] RBC (Bld) [#/Vol] 4.56 10*6/uL [email or web address] WBC (Bld) [#/Vol] 12.8 10*3/uL High 3.6 - 10.7 10*3/uL [facility] CT Abdomen WO contraston 1. No acute abdominal or pelvic process to explain symptoms. Report Dictated on Electronically Signed By: Abner Palacio Electronically Signed Date/Time: 03/08/2023 2:14 PM [facility] Patient Name: WILL ALVARADO [...] evident. Osseous structures: Mild lumbar degenerative spondylosis. [facility] Abner Palacio DO - 03/08/2023 [facility] 1965 [id number] Exam Date/Time: 03/08/2023 13:54 Procedure: CT ABDOMEN [...] Electronically Signed Date/Time: 03/08/2023 2:[address] [facility] Radiology Study observation (narrative) [facility] CT Abdomen WO contrastOrdere d By: Abner Palacio on 03-08-2023 [facility] Work Phone: Comprehensive metabolic 1998 panelon 03-08-2023 Albumin [Mass/Vol] 4.1 g/dL 3.5 - 5.0 g/dL [facility] ALP [Catalytic activity/Vol] 158 U/L High 38 - 126 U/L [facility] ALT [Catalytic activity/Vol] 41 U/L [facility] Anion gap [Moles/Vol] 8 mmol/L 3 - 13 mmol/L [facility] AST [Catalytic activity/Vol] 29 U/L 15 - 46 U/L [facility] Bilirubin [Mass/Vol] 0.5 mg/dL 0.2 - 1 .3 mg/dL [facility] Calcium [Mass/Vol] 8.5 mg/dL 8.4 - 10. 4 mg/dL [facility] Chloride [Moles/Vol] 102 mmol/L 98 - 10 7 mmol/L [facility] CO2 [Moles/Vol] 23 mmol/L 22 - 30 mmol/L [facility] Creatinine [Mass/Vol] 0.56 mg/dL [facility] GFR/1.73 sq M.predicted MDRD (S/P/Bld) [Vol rate/Area] - PINF [facility] Comment on above: Calculation based on the Chronic Kidney Disease Epidemiology Collaboration (CKD-EPI) equation refit without adjustment for race Glucose [Mass/Vol] 197 mg/dL High 70 - 100 mg/dL [facility] Interpretation and review of laboratory results Abnormal [facility] Potassium [Moles/Vol] 4.7 mmol/L 3.5 - 5.1 mmol/L [facility] Protein [Mass/Vol] 7.4 g/dL 6.3 - 8.2 g/dL [facility] Sodium [Moles/Vol] 133 mmol/L Low 135 - 145 mmol/L [facility] Urea nitrogen [Mass/Vol] 20 mg/dL [facility] Lipaseon 03-08-2023 Lipase [Catalytic activity/Vol] 45 U/L 23 - 300 U/L [facility] Lipase [Catalytic activity/V ol]on 03-08-2023 Interpretation and review of laboratory results Normal [facility] No Panel Informationon 03-08 [facility] POCT glucose meteron 023 Glucose [Mass/Vol] 167 mg/dL High 70 - 100 mg/dL [facility] Interpretation and review of laboratory results Abnormal [facility] Performed by: [facility] [employer] [facility], [address] [address] CLIA ID: [id number] [facility] Basophil percentageOrdered B y: Raj Caicedo on 01-13-2023 Cholesterol [Mass/Vol] 156 mg/dL <200 [facility] Comment on above: <200 mg/dL Desirable 200-240 mg/dL Borderline >240 mg/dL High Risk Triglyceride [Mass/Vol] 235 mg/dL <199 [facility] Comment on above: The drugs N-Acetylcy steine and Metamizole may falsely depress this assay.Serum Triglycerides Reference Interval Normal <150 mg/dL Borderline high 150 - 199 mg/dL High 200 - 499 mg/dL Very High > or = 500 mg/dL Serum or plasma cholesterol in HDL measurement (mass/volume)Ordered By: Raj Caicedo on 01-13-2023 Cholesterol in HDL [Mass/Vol] 37 mg/dL >40 [facility] Comment on above: The drugs N-Acetylcy steine and Metamizole may falsely depress this assay. Reference Range HDL <40 mg/dL Low HDL Cholesterol HDL >or= 60 mg/dL High HDL Cholesterol Serum or plasma cholesterol in VLDL measurement (mass/volume)Ordered By: Raj Caicedo on 01-13-2023 Cholesterol in VLDL [Mass/Vol] 47 mg/dL 5-40 [facility] Serum or plasma low density lipoprotein (LDL) cholesterol measurement (mass/volume)Ordered By: Raj Caicedo on 01-13-2023 Cholesterol in LDL [Mass/Vol] 72 mg/dL 0-130 [facility] Whole blood hemoglobin A1c/t otal hemoglobin ratio (mass fraction)Ordered By: Jared Guzman on 12-02-2022 HbA1c (Bld) [Mass fraction] 9.5 % 3.8-5.6 [facility] Comment on above: Normal < 5.7 % Predi abetic 5.7 - 6.4 % Diabetic >or= 6.5 % Please note range changes. Basophil percentageOrdered B y: Jared Guzman on 10-27-2022 Bilirubin [Mass/Vol] 0.30 mg/dL 0.20-1.00 [facility] Comment on above: For patients on eltr ombopag therapy, use of Dimension [place] TBIL is not recommended. Chloride [Moles/Vol] 104 mmol/L 98-107 [facility] Cholesterol [Mass/Vol] 150 mg/dL <[address] [facility] Comment on above: <200 mg/dL Desirable 200-240 mg/dL Borderline >240 mg/dL High Risk Glucose [Mass/Vol] 217 mg/dL 74-106 [facility] Comment on above: Glucose result great er than or equal to 200 mg/dLsuggests DIABETES MELLITUS per A.D.A. criteria. Potassium [Moles/Vol] 4.9 mmol/L 3.5-5.1 [facility] Protein [Mass/Vol] 6.5 g/dL 6.4-8.2 [facility] Sodium [Moles/Vol] 136 mmol/L 136-145 [facility] Triglyceride [Mass/Vol] 197 mg/dL <199 [facility] Comment on above: The drugs N-Acetylcy steine and Metamizole may falsely depress this assay.Serum Triglycerides Reference Interval Normal <150 mg/dL Borderline high 150 - 199 mg/dL High 200 - 499 mg/dL Very High > or = 500 mg/dL WBC (Bld) [#/Vol] 7.5 10*3/uL 4.4-11.0 [facility] Blood erythrocytes count (nu mber/volume)Ordered By: Jared Guzman on 10-27-2022 RBC (Bld) [#/Vol] 4.03 10*6/uL 4.6-6.2 [facility] Blood hemoglobin measurement (mass/volume)Ordered By: Jared Guzman on 10-27-2022 Hemoglobin (Bld) [Mass/Vol] 11.3 g/dL 13.0-16.5 [facility] Blood platelet mean volumeOr dered By: Jared Guzman on 10-27-2022 Platelet mean volume (Bld) [Entitic vol] 10.1 fL 6.2-12.0 [facility] Determination of erythrocyte mean corpuscular volume (MCV)Ordered By: Jared Guzman on 10-27-2022 MCV (RBC) [Entitic vol] 89.3 fL 80-94 [facility] Hematocrit Auto (Bld) [Volum e fraction]Ordered By: Jared Guzman on 10-27-2022 Hematocrit (Bld) [Volume fraction] 36.0 % 40-54 [facility] Laboratory - Chemistry and C hemistry - challengeOrdered By: Jared Guzman on 10-27-2022 ALP [Catalytic activity/Vol] 179 U/L 45-117 [facility] ALT [Catalytic activity/Vol] 41 U/L 16-61 [facility] CO2 [Moles/Vol] 26.0 mmol/L 21.0-32.0 [facility] Globulin (S) [Mass/Vol] 3.4 g/dL 2.2-4.2 [facility] Urea nitrogen/Creatinine [Mass ratio] 27.7 mg/mg 1020 [facility] Laboratory - Hematology and Cell countsOrdered By: Jared Guzman on 10-27-2022 Erythrocyte distribution width (RBC) [Entitic vol] 45.3 fL 35.1-43.9 [facility] Erythrocyte distribution width (RBC) [Ratio] 13.8 % 11.6-14.6 [facility] MCH (RBC) [Entitic mass] 28.0 pg 27.0-32.0 [facility] MCHC Auto (RBC) [Mass/Vol]Or dered By: Jared Guzman on 10-27-2022 MCHC (RBC) [Mass/Vol] 31.4 g/dL 32-36 [facility] No Panel InformationOrdered By: Jared Guzman on 10-27-2022 Estimated GFR (MDRD) Amer 123 mL/min >60 [facility] Comment on above: GFR Calc Estimated GFR (MDRD) Non-Af Amer 102 mL/min >60 [facility] Comment on above: Non- GFR Calc Platelets bldOrdered By: Mike Guzman on 10-27-2022 Platelets (Bld) [#/Vol] 343 10*3/uL 150-450 [facility] Serum or plasma albumin mauricio urement (mass/volume)Ordered By: Jared Guzman on 10-27-2022 Albumin [Mass/Vol] 3.1 g/dL 3.2-5.0 [facility] Serum or plasma albumin/glob ulin mass ratioOrdered By: Jared Guzman on 10-27-2022 Albumin/Globulin [Mass ratio] 0.9 {ratio} 0.9-2.4 [facility] Serum or plasma calcium mauricio urement (mass/volume)Ordered By: Jared Guzman on 10-27-2022 Calcium [Mass/Vol] 9.0 mg/dL 8.5-10.1 [facility] Serum or plasma cholesterol in HDL measurement (mass/volume)Ordered By: Jared Guzman on 10-27-2022 Cholesterol in HDL [Mass/Vol] 34 mg/dL >40 [facility] Comment on above: The drugs N-Acetylcy steine and Metamizole may falsely depress this assay. Reference Range HDL <40 mg/dL Low HDL Cholesterol HDL >or= 60 mg/dL High HDL Cholesterol Serum or plasma cholesterol in VLDL measurement (mass/volume)Ordered By: Jared Guzman on 10-27-2022 Cholesterol in VLDL [Mass/Vol] 39 mg/dL 5-40 [facility] Serum or plasma creatinine m easurement (mass/volume)Ordered By: Jared Guzman on 10-27-2022 Creatinine [Mass/Vol] 0.83 mg/dL 0.70-1.30 [facility] Comment on above: The validity of the calculated GFR & GFRAA in patients over 70 years has not been determined. Clinical correlation is essential. Serum or plasma low density lipoprotein (LDL) cholesterol measurement (mass/volume)Ordered By: Jared Guzman on 10-27-2022 Cholesterol in LDL [Mass/Vol] 77 mg/dL 0-130 [facility] Serum or plasma urea nitroge n measurement (mass/volume)Ordered By: Jared Guzman on 10-27-2022 Urea nitrogen [Mass/Vol] 23 mg/dL 7-18 [facility] Thin prep Papanicolaou smear with manual screeningOrdered By: Jared Guzman on 10-27-2022 Thin prep Papanicolaou smear with manual screening 16 U/L 15-37 [facility] Thin prep Papanicolaou smear with manual screening 6 5-15 [facility] Basophil percentageon 2021 Chloride [Moles/Vol] 105 mmol/L 98-107 [facility] Work Phone: Glucose [Mass/Vol] 188 mg/dL 74-106 [facility] Work Phone: Comment on above: Fasting Glucose resu lt greater than or equal to 126 mg/dL suggests DIABETES MELLITUS per A.D.A. criteria. Potassium [Moles/Vol] 5.1 mmol/L 3.5-5.1 [facility] Work Phone: Sodium [Moles/Vol] 134 mmol/L 136-145 [facility] Work Phone: WBC (Bld) [#/Vol] 9.0 10*3/uL 4.4-11.0 [facility] Work Phone: Blood erythrocytes count (nu mber/volume)on 06-24-2022 RBC (Bld) [#/Vol] 4.12 10*6/uL 4.6-6.2 [facility] Work Phone: Blood hemoglobin measurement (mass/volume)on 06-24-2022 Hemoglobin (Bld) [Mass/Vol] 11.5 g/dL 13.0-16.5 [facility] Work Phone: Blood platelet mean volumeon 06-24-2022 Platelet mean volume (Bld) [Entitic vol] 10.7 fL 6.2-12.0 [facility] Work Phone: Determination of erythrocyte mean corpuscular volume (MCV)on 06-24-2022 MCV (RBC) [Entitic vol] 87.9 fL 80-94 [facility] Work Phone: Hematocrit Auto (Bld) [Volum e fraction]on 06-24-2022 Hematocrit (Bld) [Volume fraction] 36.2 % 40-54 [facility] Work Phone: Laboratory - Chemistry and C hemistry - challengeon 06-24-2022 CO2 [Moles/Vol] 22.0 mmol/L 21.0-32.0 [facility] Work Phone: Urea nitrogen/Creatinine [Mass ratio] 42.1 mg/mg 10-20 [facility] Work Phone: Laboratory - Hematology and Cell countson 06-24-2022 Erythrocyte distribution width (RBC) [Entitic vol] 45.2 fL 35.1-43.9 [facility] Work Phone: Erythrocyte distribution width (RBC) [Ratio] 14.1 % 11.6-14.6 [facility] Work Phone: MCH (RBC) [Entitic mass] 27.9 pg 27.0-32.0 [facility] Work Phone: MCHC Auto (RBC) [Mass/Vol]on 06-24-2022 MCHC (RBC) [Mass/Vol] 31.8 g/dL 32-36 [facility] Work Phone: No Panel Informationon 06-24 Estimated GFR (MDRD) Amer 119 mL/min >60 [facility] Work Phone: Comment on above: GFR Calc Estimated GFR (MDRD) Non-Af Amer 99 mL/min >60 [facility] Work Phone: Comment on above: Non- GFR Calc Platelets bldon 06-24-2022 Platelets (Bld) [#/Vol] 396 10*3/uL 150-450 [facility] Work Phone: Serum or plasma calcium mauricio urement (mass/volume)on 06-24-2022 Calcium [Mass/Vol] 9.1 mg/dL 8.5-10.1 [facility] Work Phone: Serum or plasma creatinine m easurement (mass/volume)on 06-24-2022 Creatinine [Mass/Vol] 0.86 mg/dL 0.70-1.30 [facility] Work Phone: Comment on above: The validity of the calculated GFR & GFRAA in patients over 70 years has not been determined. Clinical correlation is essential. Serum or plasma urea nitroge n measurement (mass/volume)on 06-24-2022 Urea nitrogen [Mass/Vol] 36 mg/dL 05-25 [facility] Work Phone: Thin prep Papanicolaou smear with manual screeningon 06-24-2022 Thin prep Papanicolaou smear with manual screening 7 -15 [facility] Work Phone: Basophil percentageon 2021 Bilirubin [Mass/Vol] 0.20 mg/dL 0.20-1.00 [facility] Work Phone: Comment on above: For patients on eltr ombopag therapy, use of Dim[employer] [place] TBIL is not recommended. Chloride [Moles/Vol] 104 mmol/L 98-107 [facility] Work Phone: Glucose [Mass/Vol] 299 mg/dL 74-106 [facility] Work Phone: Comment on above: Glucose result great er than or equal to 200 mg/dLsuggests DIABETES MELLITUS per A.D.A. criteria. Potassium [Moles/Vol] 5.0 mmol/L 3.5-5.1 [facility] Work Phone: Protein [Mass/Vol] 6.7 g/dL 6.4-8.2 [facility] Work Phone: Sodium [Moles/Vol] 135 mmol/L 136-145 [facility] Work Phone: WBC (Bld) [#/Vol] 7.9 10*3/uL 4.4-11.0 [facility] Work Phone: Blood erythrocytes count (nu mber/volume)on 05-25-2022 RBC (Bld) [#/Vol] 3.86 10*6/uL 4.6-6.[facility] Blood hemoglobin measurement (mass/volume)on 05-25-2022 Hemoglobin (Bld) [Mass/Vol] 10.5 g/dL 13.0-16.5 [facility] Work Phone: Blood platelet mean volumeon 05-25-2022 Platelet mean volume (Bld) [Entitic vol] 10.5 fL 6.2-12.0 [facility] Work Phone: Determination of erythrocyte mean corpuscular volume (MCV)on 05-25-2022 MCV (RBC) [Entitic vol] 88.1 fL 80-94 [facility] Work Phone: Hematocrit Auto (Bld) [Volum e fraction]on 05-25-2022 Hematocrit (Bld) [Volume fraction] 34.0 % 40-54 [facility] Work Phone: Laboratory - Chemistry and C hemistry - challengeon 05-25-2022 ALP [Catalytic activity/Vol] 187 U/L 45-117 [facility] Work Phone: ALT [Catalytic activity/Vol] 37 U/L 16-61 [facility] Work Phone: CO2 [Moles/Vol] 25.0 mmol/L 21.0-32.0 [facility] Work Phone: Globulin (S) [Mass/Vol] 3.8 g/dL 2.2-4.2 [facility] Work Phone: Urea nitrogen/Creatinine [Mass ratio] 27.5 mg/mg 10-20 [facility] Work Phone: Laboratory - Hematology and Cell countson 05-25-2022 Erythrocyte distribution width (RBC) [Entitic vol] 45.1 fL 35.1-43.9 [facility] Work Phone: Erythrocyte distribution width (RBC) [Ratio] 14.1 % 11.6-14.6 [facility] Work Phone: MCH (RBC) [Entitic mass] 27.2 pg 27.0-32.0 [facility] Work Phone: MCHC Auto (RBC) [Mass/Vol]on 07-18-2022 MCHC (RBC) [Mass/Vol] 30.9 g/dL 32-36 [facility] Work Phone: No Panel Informationon 05-25 Estimated GFR (MDRD) Amer 123 mL/min >60 [facility] Work Phone: Comment on above: GFR Calc Estimated GFR (MDRD) Non-Af Amer 101 mL/min >60 [facility] Work Phone: Comment on above: Non- GFR Calc Platelets bldon 05-25-2022 Platelets (Bld) [#/Vol] 320 10*3/uL 150-450 [facility] Work Phone: Serum or plasma albumin mauricio urement (mass/volume)on 05-25-2022 Albumin [Mass/Vol] 2.9 g/dL 3.2-5.0 [facility] Work Phone: Serum or plasma albumin/glob ulin mass ratioon 05-25-2022 Albumin/Globulin [Mass ratio] 0.8 {ratio} 0.9-2.4 [facility] Work Phone: Serum or plasma calcium mauricio urement (mass/volume)on 05-25-2022 Calcium [Mass/Vol] 9.0 mg/dL 8.5-10.1 [facility] Work Phone: Serum or plasma creatinine m easurement (mass/volume)on 05-25-2022 Creatinine [Mass/Vol] 0.84 mg/dL 0.70-1.30 [facility] Work Phone: Comment on above: The validity of the calculated GFR & GFRAA in patients over 70 years has not been determined. Clinical correlation is essential. Serum or plasma urea nitroge n measurement (mass/volume)on 05-25-2022 Urea nitrogen [Mass/Vol] 23 mg/dL - [facility] Work Phone: Thin prep Papanicolaou smear with manual screeningon 05-25-2022 Thin prep Papanicolaou smear with manual screening 14 U/L 15- [facility] Work Phone: Thin prep Papanicolaou smear with manual screening 6 5-15 [facility] Work Phone: Basophil percentageon 2021 Cholesterol [Mass/Vol] 135 mg/dL <[address] [facility] Work Phone: Comment on above: <200 mg/dL Desirable 200-240 mg/dL Borderline >240 mg/dL High Risk Triglyceride [Mass/Vol] 183 mg/dL <199 [facility] Work Phone: Comment on above: The drugs N-Acetylcy steine and Metamizole may falsely depress this assay.Serum Triglycerides Reference Interval Normal <150 mg/dL Borderline high 150 - 199 mg/dL High 200 - 499 mg/dL Very High > or = 500 mg/dL Serum or plasma cholesterol in HDL measurement (mass/volume)on 04-27-2022 Cholesterol in HDL [Mass/Vol] 35 mg/dL >40 [facility] Work Phone: Comment on above: The drugs N-Acetylcy steine and Metamizole may falsely depress this assay. Reference Range HDL <40 mg/dL Low HDL Cholesterol HDL >or= 60 mg/dL High HDL Cholesterol Serum or plasma cholesterol in VLDL measurement (mass/volume)on 04-27-2022 Cholesterol in VLDL [Mass/Vol] 37 mg/dL 5-40 [facility] Work Phone: Serum or plasma low density lipoprotein (LDL) cholesterol measurement (mass/volume)on 04-27-2022 Cholesterol in LDL [Mass/Vol] 63 mg/dL 0-130 [facility] Work Phone: Basophil percentageon 2021 Bilirubin [Mass/Vol] 0.30 mg/dL 0.20-1.00 [facility] Work Phone: Comment on above: For patients on eltr ombopag therapy, use of Dimension [place] TBIL is not recommended. Chloride [Moles/Vol] 105 mmol/L 98-107 [facility] Work Phone: Glucose [Mass/Vol] 260 mg/dL 74-106 [facility] Work Phone: Comment on above: Glucose result great er than or equal to 200 mg/dLsuggests DIABETES MELLITUS per A.D.A. criteria. Potassium [Moles/Vol] 4.7 mmol/L 3.5-5.1 [facility] Work Phone: Protein [Mass/Vol] 6.8 g/dL 6.4-8.2 [facility] Work Phone: Sodium [Moles/Vol] 134 mmol/L 136-145 [facility] Work Phone: WBC (Bld) [#/Vol] 8.9 10*3/uL 4.4-11.0 [facility] Work Phone: Blood erythrocytes count (nu mber/volume)on 04-13-2022 RBC (Bld) [#/Vol] 3.91 10*6/uL 4.6-6.2 [facility]: Blood hemoglobin measurement (mass/volume)on 04-13-2022 Hemoglobin (Bld) [Mass/Vol] 11.0 g/dL 13.0-16.5 [facility] Work Phone: Blood platelet mean volumeon 04-13-2022 Platelet mean volume (Bld) [Entitic vol] 10.3 fL 6.2-12.0 [facility] Work Phone: Determination of erythrocyte mean corpuscular volume (MCV)on 04-13-2022 MCV (RBC) [Entitic vol] 87.7 fL 80-94 [facility] Work Phone: Hematocrit Auto (Bld) [Volum e fraction]on 04-13-2022 Hematocrit (Bld) [Volume fraction] 34.3 % 40-54 [facility] Work Phone: Laboratory - Chemistry and C hemistry - challengeon 04-13-2022 ALP [Catalytic activity/Vol] 189 U/L 45-117 [facility] Work Phone: ALT [Catalytic activity/Vol] 43 U/L 16-61 [facility] Work Phone: CO2 [Moles/Vol] 23.0 mmol/L 21.0-32.0 [facility] Work Phone: Globulin (S) [Mass/Vol] 3.6 g/dL 2.2-4.2 [facility] Work Phone: Urea nitrogen/Creatinine [Mass ratio] 34.9 mg/mg 10-20 [facility] Work Phone: Laboratory - Hematology and Cell countson 04-13-2022 Erythrocyte distribution width (RBC) [Entitic vol] 42.3 fL 35.1-43.9 [facility] Work Phone: Erythrocyte distribution width (RBC) [Ratio] 13.2 % 11.6-14.6 [facility] Work Phone: MCH (RBC) [Entitic mass] 28.1 pg 27.0-32.0 [facility] Work Phone: MCHC Auto (RBC) [Mass/Vol]on 04-13-2022 MCHC (RBC) [Mass/Vol] 32.1 g/dL 32-36 [facility] Work Phone: No Panel Informationon 04-13 Estimated GFR (MDRD) Amer 134 mL/min >60 [facility] Work Phone: Comment on above: GFR Calc Estimated GFR (MDRD) Non-Af Amer 111 mL/min >60 [facility] Work Phone: Comment on above: Non- GFR Calc Platelets bldon 04-13-2022 Platelets (Bld) [#/Vol] 310 10*3/uL 150-450 [facility] Work Phone: Serum or plasma albumin mauricio urement (mass/volume)on 04-13-2022 Albumin [Mass/Vol] 3.2 g/dL 3.2-5.0 [facility] Work Phone: Serum or plasma albumin/glob ulin mass ratioon 04-13-2022 Albumin/Globulin [Mass ratio] 0.9 {ratio} 0.9-2.4 [facility] Work Phone: Serum or plasma calcium mauricio urement (mass/volume)on 04-13-2022 Calcium [Mass/Vol] 9.1 mg/dL 8.5-10.1 [facility] Work Phone: Serum or plasma creatinine m easurement (mass/volume)on 04-13-2022 Creatinine [Mass/Vol] 0.77 mg/dL 0.70-1.30 [facility] Work Phone: Comment on above: The validity of the calculated GFR & GFRAA in patients over 70 years has not been determined. Clinical correlation is essential. Serum or plasma urea nitroge n measurement (mass/volume)on 04-13-2022 Urea nitrogen [Mass/Vol] 27 mg/dL 7-18 [facility] Work Phone: Thin prep Papanicolaou smear with manual screeningon 04-13-2022 Thin prep Papanicolaou smear with manual screening 16 U/L 15-37 [facility] Work Phone: Thin prep Papanicolaou smear with manual screening 6 5-15 [facility] Work Phone: Basophil percentageon 2021 Chloride [Moles/Vol] 105 mmol/L 98-107 [facility] Work Phone: Glucose [Mass/Vol] 284 mg/dL 74-106 [facility] [facility] Work Phone: Comment on above: Glucose result great er than or equal to 200 mg/dLsuggests DIABETES MELLITUS per A.D.A. criteria. Potassium [Moles/Vol] 4.6 mmol/L 3.5-5.1 [facility] Work Phone: Sodium [Moles/Vol] 134 mmol/L 136-145 [facility] Work Phone: WBC (Bld) [#/Vol] 7.7 10*3/uL 4.4-11.0 [facility] Work Phone: Blood erythrocytes count (nu mber/volume)on 03-02-2022 RBC (Bld) [#/Vol] 3.83 10*6/uL 4.6-6.2 [facility] Work Phone: Blood hemoglobin measurement (mass/volume)on 03-02-2022 Hemoglobin (Bld) [Mass/Vol] 10.7 g/dL 13.0-16.5 [facility] Work Phone: Blood platelet mean volumeon 03-02-2022 Platelet mean volume (Bld) [Entitic vol] 10.6 fL 6.2-12.0 [facility] Work Phone: Determination of erythrocyte mean corpuscular volume (MCV)on 03-02-2022 MCV (RBC) [Entitic vol] 90.1 fL 80-94 [facility] Work Phone: Hematocrit Auto (Bld) [Volum e fraction]on 03-02-2022 Hematocrit (Bld) [Volume fraction] 34.5 % 40-54 [facility] Work Phone: Laboratory - Chemistry and C hemistry - challengeon 03-02-2022 CO2 [Moles/Vol] 22.0 mmol/L 21.0-32.0 [facility] Work Phone: Urea nitrogen/Creatinine [Mass ratio] 31.8 mg/mg 10-20 [facility] Work Phone: Laboratory - Hematology and Cell countson 03-02-2022 Erythrocyte distribution width (RBC) [Entitic vol] 44.5 fL 35.1-43.9 [facility] Work Phone: Erythrocyte distribution width (RBC) [Ratio] 13.5 % 11.6-14.6 [facility] Work Phone: MCH (RBC) [Entitic mass] 27.9 pg 27.0-32.0 [facility] Work Phone: MCHC Auto (RBC) [Mass/Vol]on 03-02-2022 MCHC (RBC) [Mass/Vol] 31.0 g/dL 32-36 [facility] Work Phone: No Panel Informationon 03-02 Estimated GFR (MDRD) Amer 132 mL/min >60 [facility] Work Phone: Comment on above: GFR Calc Estimated GFR (MDRD) Non-Af Amer 109 mL/min >60 [facility] Work Phone: Comment on above: Non- GFR Calc Platelets bldon 03-02-2022 Platelets (Bld) [#/Vol] 310 10*3/uL 150-450 [facility] Work Phone: Serum or plasma calcium mauricio urement (mass/volume)on 03-02-2022 Calcium [Mass/Vol] 9.0 mg/dL 8.5-10.1 [facility] Work Phone: Serum or plasma creatinine m easurement (mass/volume)on 03-02-2022 Creatinine [Mass/Vol] 0.79 mg/dL 0.70-1.30 [facility] Work Phone: Comment on above: The validity of the calculated GFR & GFRAA in patients over 70 years has not been determined. Clinical correlation is essential. Serum or plasma urea nitroge n measurement (mass/volume)on 03-02-2022 Urea nitrogen [Mass/Vol] 25 mg/dL 7-18 [facility] Work Phone: Thin prep Papanicolaou smear with manual screeningon 03-02-2022 Thin prep Papanicolaou smear with manual screening 7 5-15 [facility] Work Phone: Basophil percentageon 2021 Bilirubin [Mass/Vol] 0.30 mg/dL 0.20-1.00 [facility] Work Phone: Comment on above: For patients on eltr ombopag therapy, use of Dimension [place] TBIL is not recommended. Chloride [Moles/Vol] 103 mmol/L 98-107 [facility] Work Phone: Glucose [Mass/Vol] 334 mg/dL 74-106 [facility] Work Phone: Comment on above: Glucose result great er than or equal to 200 mg/dLsuggests DIABETES MELLITUS per A.D.A. criteria. Potassium [Moles/Vol] 5.0 mmol/L 3.5-5.1 [facility] Work Phone: Protein [Mass/Vol] 6.8 g/dL 6.4-8.2 [facility] Work Phone: Sodium [Moles/Vol] 135 mmol/L 136-145 [facility] Work Phone: WBC (Bld) [#/Vol] 7.0 10*3/uL 4.4-11.0 [facility] Work Phone: Blood erythrocytes count (nu mber/volume)on 01-29-2022 RBC (Bld) [#/Vol] 3.91 10*6/uL 4.6-6.2 [facility] Blood hemoglobin measurement (mass/volume)on 01-29-2022 Hemoglobin (Bld) [Mass/Vol] 10.9 g/dL 13.0-16.5 [facility] Work Phone: Blood platelet mean volumeon 01-29-2022 Platelet mean volume (Bld) [Entitic vol] 10.9 fL 6.2-12.0 [facility] Work Phone: Determination of erythrocyte mean corpuscular volume (MCV)on 01-29-2022 MCV (RBC) [Entitic vol] 89.8 fL 80-94 [facility] Work Phone: Hematocrit Auto (Bld) [Volum e fraction]on 01-29-2022 Hematocrit (Bld) [Volume fraction] 35.1 % 40-54 [facility] Work Phone: Laboratory - Chemistry and C hemistry - challengeon 01-29-2022 ALP [Catalytic activity/Vol] 194 U/L 45-117 [facility] Work Phone: ALT [Catalytic activity/Vol] 38 U/L 16-61 [facility] Work Phone: CO2 [Moles/Vol] 27.0 mmol/L 21.0-32.0 [facility] Work Phone: Globulin (S) [Mass/Vol] 3.5 g/dL 2.2-4.2 [facility] Work Phone: Urea nitrogen/Creatinine [Mass ratio] 20.6 mg/mg 10-20 [facility] Work Phone: Laboratory - Hematology and Cell countson 01-29-2022 Erythrocyte distribution width (RBC) [Entitic vol] 43.8 fL 35.1-43.9 [facility] Work Phone: Erythrocyte distribution width (RBC) [Ratio] 13.3 % 11.6-14.6 [facility] Work Phone: MCH (RBC) [Entitic mass] 27.9 pg 27.0-32.0 [facility] Work Phone: MCHC Auto (RBC) [Mass/Vol]on 01-29-2022 MCHC (RBC) [Mass/Vol] 31.1 g/dL 32-36 [facility] Work Phone: No Panel Informationon 01-29 Estimated GFR (MDRD) Amer 117 mL/min >60 [facility] Work Phone: Comment on above: GFR Calc Estimated GFR (MDRD) Non-Af Amer 97 mL/min >60 [facility] Work Phone: Comment on above: Non- GFR Calc Platelets bldon 01-29-2022 Platelets (Bld) [#/Vol] 306 10*3/uL 150-450 [facility] Work Phone: Serum or plasma albumin mauricio urement (mass/volume)on 01-29-2022 Albumin [Mass/Vol] 3.3 g/dL 3.2-5.0 [facility] Work Phone: Serum or plasma albumin/glob ulin mass ratioon 01-29-2022 Albumin/Globulin [Mass ratio] 0.9 {ratio} 0.9-2.4 [facility] Work Phone: Serum or plasma calcium mauricio urement (mass/volume)on 01-29-2022 Calcium [Mass/Vol] 8.8 mg/dL 8.5-10.1 [facility] Work Phone: Serum or plasma creatinine m easurement (mass/volume)on 01-29-2022 Creatinine [Mass/Vol] 0.87 mg/dL 0.70-1.30 [facility] Work Phone: Comment on above: The validity of the calculated GFR & GFRAA in patients over 70 years has not been determined. Clinical correlation is essential. Serum or plasma urea nitroge n measurement (mass/volume)on 01-29-2022 Urea nitrogen [Mass/Vol] 18 mg/dL 7-18 [facility] Work Phone: Thin prep Papanicolaou smear with manual screeningon 01-29-2022 Thin prep Papanicolaou smear with manual screening 11 U/L 15-37 [facility] Work Phone: Thin prep Papanicolaou smear with manual screening 5 5-15 [facility] Work Phone: Whole blood hemoglobin A1c/t otal hemoglobin ratio (mass fraction)on 01-29-2022 HbA1c (Bld) [Mass fraction] 8.8 % 3.8-5.6 [facility] Work Phone: Comment on above: Normal < 5.7 % Predi abetic 5.7 - 6.4 % Diabetic >or= 6.5 % Please note range changes. Basophil percentageon 2021 Cholesterol [Mass/Vol] 169 mg/dL <200 [facility] Work Phone: Comment on above: <200 mg/dL Desirable 200-240 mg/dL Borderline >240 mg/dL High Risk Triglyceride [Mass/Vol] 177 mg/dL <199 [facility] Work Phone: Comment on above: The drugs N-Acetylcy steine and Metamizole may falsely depress this assay.Serum Triglycerides Reference Interval Normal <150 mg/dL Borderline high 150 - 199 mg/dL High 200 - 499 mg/dL Very High > or = 500 mg/dL Serum or plasma cholesterol in HDL measurement (mass/volume)on 01-19-2022 Cholesterol in HDL [Mass/Vol] 35 mg/dL >40 [facility] Work Phone: Comment on above: The drugs N-Acetylcy steine and Metamizole may falsely depress this assay. Reference Range HDL <40 mg/dL Low HDL Cholesterol HDL >or= 60 mg/dL High HDL Cholesterol Serum or plasma cholesterol in VLDL measurement (mass/volume)on 01-19-2022 Cholesterol in VLDL [Mass/Vol] 35 mg/dL 5-40 [facility] Work Phone: Serum or plasma low density lipoprotein (LDL) cholesterol measurement (mass/volume)on 01-19-2022 Cholesterol in LDL [Mass/Vol] 99 mg/dL 0-130 [facility] Work Phone: Basic Metabolic Panelon 12-09 Calcium [Mass/Vol] 9.4 mg/dL Normal 8.4-10.4 [facility] Comment on above: Performed By: #### B MP3, HGHCT #### [facility] [address] [place] [address] Glucose [Mass/Vol] 119 mg/dL High 70-100 [facility] Comment on above: Performed By: #### B MP3, HGHCT #### [facility] [address] [place] [address] Urea nitrogen [Mass/Vol] 19 mg/dL Normal 9-20 [facility] Comment on above: Performed By: #### B MP3, HGHCT #### [facility] [address] [place] [address] Anion gap [Moles/Vol] 8 mmol/L Normal 3-13 [facility] Comment on above: Performed By: #### B MP3, HGHCT #### [facility] [address] [place] [address] CO2 [Moles/Vol] 25 mmol/L Normal 22-30 [facility] Comment on above: Performed By: #### B MP3, HGHCT #### [facility] [address] [place] [address] Creatinine [Mass/Vol] 0.73 mg/dL Normal 0.52-1.25 [facility] Comment on above: Performed By: #### Olvin CARLSON, HGHCT #### [facility] [address] [place] [address] eGFR OTHER > 90.0 Normal >60 [facility] Comment on above: Result Comment: KDIG [...] Performed By: #### Olvin CARLSON HGHCT #### [facility] [address] [place] [address] GFR/1.73 sq M.predicted among blacks MDRD (S/P/Bld) [Vol rate/Area] mL/min/{1.73_m2} Normal >60 [facility] Comment on above: Performed By: #### Olvin CARLSON HGHCT #### [facility] [address] [place] [address] Potassium [Moles/Vol] 4.6 mmol/L Normal 3.5-5.1 [facility] Comment on above: Performed By: #### Olvin YEPEZ3, HGHCT #### [facility] [address] [place] [address] Chloride [Moles/Vol] 105 mmol/L Normal 98-107 [facility] Comment on above: Performed By: #### Olvin YEPEZ3, HGHCT #### [facility] [address] [place] [address] Sodium [Moles/Vol] 137 mmol/L Normal 135-145 [facility] Comment on above: Performed By: #### B MP3, HGHCT #### [facility] [address] [place] [address] Glucose,Bedsideon 12-23-2021 Glucose [Mass/Vol] 122 mg/dL High 70-100 [facility] Comment on above: Result Comment: Test performed by glucose meter. Results may be 10%-15% lower than serum/plasma values. (CLIA ID [id number]) Performed By: #### B GLU #### [facility] [address] [place] [address] Glucose [Mass/Vol] 107 mg/dL High 70-100 [facility] Comment on above: Result Comment: Test performed by glucose meter. Results may be 10%-15% lower than serum/plasma values. (CLIA ID [id number]) Performed By: #### B GLU #### [facility] [address] [place] [address] Hemoglobin AND Hematocriton 12-23-2021 Hematocrit (Bld) [Volume fraction] 35.7 % Normal 35.0-47.0 [facility] Comment on above: Performed By: #### B MP3, HGHCT #### [facility] [address] [place] [address] Hemoglobin (Bld) [Mass/Vol] 11.8 g/dL Normal 11.7-16.0 [facility] Comment on above: Performed By: #### B MP3, HGHCT #### [facility] [address] [place] [address] Op Noteon 12-23-2021 Op Note Operative Note Patient: Will Jacinto Date of : 1965 Date of Procedure: 12/23/21 Pre-Op Diagnosis: endometrial hyperplasia Post-Op Diagnosis: Same D&C/hysteroscopy [employer]: * Surgery not found * Anesthesia: general [...] thoroughly curetted and specimen sent. Procedure terminated. [facility] Surgical Pathologyon 022 Surgical Pathology [id number] [facility] PATHOLOGY AND LABORATORY MEDICINE [address] [place] [address] [phone] Fax - FINAL SURGICAL PATHOLOGY REPORT NAME: WILL JACINTO : 1965 56 Y F BILLING NO.: [id number] LOCATION: [facility] 18 PROCEDURE 12/23/2021 DATE: SURGEON: MICHAEL [...] 0.4 cm. All submitted in one cassette. [facility] Disclaimer: The following statement applies to all immunohistochemistry, in situ hybridization, molecular studies, and immunofluorescence testing. The use of one or more reagents in the above tests is regulated as an analyte specific reagent (ASR). These tests were developed and their performance characteristics determined by the clinical laboratories of [facility]. They have not been cleared by [...] negativity on decalcified specimens. Case reviewed at [place] [address] [place] [address]. DEPARTMENT OF PATHOLOGY AND LABORATORY MEDICINE [place], [place] [address] [email or web address] Normal [facility] Comprehensive Metabolic Pane gigi 12-08-2020 Albumin [Mass/Vol] 4.0 g/dL 3.5 - 5 g/dL [place], [place] ALP [Catalytic activity/Vol] 121 U/L 38 - 126 U/L [place] ALT [Catalytic activity/Vol] 47 U/L High 0 - 34 U/L [place] Comment on above: The ALT test is perf ormed by an updated assay method. Please note that the reference intervals have been changed and are now sex specific. Anion gap [Moles/Vol] 6 mmol/L [place], [place] AST [Catalytic activity/Vol] 25 U/L 15 - 46 U/L [place] Bilirubin Ql (U) 0.6 mg/dL 0.2 - 1.3 mg/dL [place] Calcium [Mass/Vol] 9.7 mg/dL 8.4 - 10. 4 mg/dL [place] Chloride [Moles/Vol] 95 mmol/L Low 98 - 10 7 mmol/L [place] CO2 [Moles/Vol] 30 mmol/L 22 - 30 mmol/L [place] Creatinine [Mass/Vol] 0.64 mg/dL 0.52 - 1.25 mg/dL [place] EGFR IF NonAfrican Tajik >90.0 >60 mL/min [place] Comment on above: KDIGO guidelines pro [...] MDRD (S/P/Bld) [Vol rate/Area] mL/min/{1.73_m2} >60 mL/min [place] Glucose [Mass/Vol] 248 mg/dL High 70 - 100 mg/dL [place] Interpretation and review of laboratory results Abnormal [place] Potassium [Moles/Vol] 4.7 mmol/L 3.5 - 5.1 mmol/L [place] Protein [Mass/Vol] 6.8 g/dL 6.3 - 8.2 g/dL [place] Sodium [Moles/Vol] 132 mmol/L Low 135 - 145 mmol/L [place] Urea nitrogen [Mass/Vol] 12 mg/dL 7 - 20 mg/dL [place] Hemogram (CBC) w/Auto Diffon 12-08-2020 Absolute Baso # 0.1 10*3/uL 0 - 0.2 10*3/uL [place] Absolute Neut # 6.1 10*3/uL 1.8 - 7 10*3/uL [place] Basophils/100 WBC (Bld) 0.8 % 0 - 2 % M [place] Eosinophils (Bld) [#/Vol] 0.1 10*3/uL 0 - 0.5 10*3/uL [place] Eosinophils/100 WBC (Bld) 1.0 % 1 - 6 % [place] Erythrocyte distribution width (RBC) [Ratio] 15.7 % High 11.5 - 14.5 % [place] Granulocytes/100 WBC (Bld) 73.2 % 40 - 80 % [place] Hematocrit (Bld) [Volume fraction] 37.0 % 35 - 47 % [place] Hemoglobin (Bld) [Mass/Vol] 12.3 g/dL 11.7 - 16 g/dL [place] Interpretation and review of laboratory results Abnormal [place] Lymphocytes (Bld) [#/Vol] 1.5 10*3/uL 1 - 4.3 10*3/uL [place] Lymphocytes/100 WBC (Bld) 18.0 % Low 20 - 40 % [place] MCH (RBC) [Entitic mass] 28.6 pg 26 - 34 pg [place] MCHC (RBC) [Mass/Vol] 33.3 % 32 - 36 % [place] MCV (RBC) [Entitic vol] 85.8 fL 79 - 98 fL [place], [place] Monocytes (Bld) [#/Vol] 0.6 10*3/uL 0 - 0.8 10*3/uL [place] Monocytes/100 WBC (Bld) 7.0 % 2 - 10 % [place] Platelet mean volume (Bld) [Entitic vol] 7.9 fL 7.4 - 10.4 fL [place] Platelets (Bld) [#/Vol] 382 10*3/uL 140 - 440 10*3/uL [place] RBC (Bld) [#/Vol] 4.32 10*6/uL 3.8 - 5.2 10*6/uL [place] WBC (Bld) [#/Vol] 8.4 10*3/uL 3.6 - 10.7 10*3/uL [place] Test Performed by [facility], [address], [place], [place] [address] [place] Lipaseon 12-08-2020 Lipase [Catalytic activity/Vol] 45 U/L 23 - 300 U/L [place] Otheron 12-08-2020 Test Performed by [facility], [address], [place], [place] [address] [place] Troponinon 12-08-2020 Troponin I.cardiac [Mass/Vol] ng/mL 0 - 0.034 ng/mL [place] Comment on above: . Test Performed by [facility], [address], [place], [place] [address] [place] US ABDOMEN LIMITED Specify o rgan? GALLBLADDERon 12-08-2020 [facility], [facility] Incoming Radiology Results From [facility] - 12/08/2020 4:26 PM EST Patient Name: WILL JACINTO Ultrasound ACCESSION EXAM DATE/TIME PROCEDURE ORDERING PROVIDER [id number] 12/08/2020 16:22 EST US Abdomen Limited [id number] SHEIKH CPT code 21292 Reason For Exam (US Abdomen Limited) abd pain/vomiting Report Ultrasound right upper quadrant HISTORY: Abdominal pain Fatty infiltration of the liver. The gallbladder is normal. No gallstones. Common bile duct has a normal diameter 1.5 mm. Pancreas is normal. Right kidney measures 11.7 x 5.7 x 5.6 cm. The right kidney is normal. IMPRESSION: Fatty infiltration of the liver. Report Dictated on Workstation: [id number] --- Final --- Dictating Physician: MD BAUMANN MALAY Signed Date and Time: 12/08/2020 4:25 pm Signed by: MD BAUMANN MALAY Transcribed Date and Time: 12/08/2020 4:26 [place] Patient Name: WILL ALVARADO Ultrasound ACCESSION EXAM DATE/TIME PROCEDURE ORDERING PROVIDER [id number] 12/08/2020 16:22 EST US Abdomen Limited [id number] SHEIKH CPT code 73465 Reason For Exam (US Abdomen Limited) abd pain/vomiting Report Ultrasound right upper quadrant HISTORY: Abdominal pain Fatty infiltration of the liver. The gallbladder is normal. No gallstones. Common bile duct has a normal diameter 1.5 mm. Pancreas is normal. Right kidney measures 11.7 x 5.7 x 5.6 cm. The right kidney is normal. IMPRESSION: Fatty infiltration of the liver. Report Dictated on Workstation: [id number] --- Final --- Dictating Physician: MD BAUMANN MALAY Signed Date and Time: 12/08/2020 4:25 pm Signed by: MD BAUMANN MALAY Transcribed Date and Time: 12/08/2020 4:26 [place] Urinalysison 12-08-2020 Appearance (U) Turbid Abnormal Clear NA [place] Comment on above: . Bacteria, UA Moderate Abnormal Negative /[HPF] [place] Comment on above: . Bilirubin Urine Negative Negative mg/dL [place] Comment on above: . Color (U) Yellow Lt. Yellow NA [place] Comment on above: . Glucose, Ur 500 mg/dL Abnormal Normal (<70) [place] Comment on above: . Hyaline Casts, UA 3-5 Abnormal Negative /[LPF] [place] Comment on above: . Interpretation and review of laboratory results Abnormal [place] Ketones Ql (U) Negative Negative mg/dL [place] Comment on above: . LEUKOCYTES, UA 250 Abnormal Negative Kat/uL [place] Comment on above: . Mucous Threads Few Negative /[LPF] [place] Comment on above: . Nitrite, Urine Negative Negative NA [place] Comment on above: . Occult Blood,Urine 1.0 mg/dL Abnormal Negative [place] Comment on above: . pH (U) 7.0 [pH] [place] Comment on above: . Protein (U) [Mass/Vol] 50 mg/dL Abnormal Negative Me [place], [place] Comment on above: . RBC (U) [#/Vol] /uL Abnormal 0 - 2 /[HPF] [place] Comment on above: . Specific [place], Urine 1.022 M [place], [place] Comment on above: . Squam Epithel, UA 3-5 3 - 5 /[HPF] [place] Comment on above: . Urobilinogen, Urine 4 mg/dL Abnormal Normal (0-1) [place] Comment on above: . WBC, UA 51-100 Abnormal 0 - 5 /[HPF] [place] Comment on above: . Test Performed by [facility], [address] [place], [place], [place] [address] Urine microscopic confirmed via light microscopy. [place] XR CHEST PORTABLEon 12-08-19 Patient Name: WILL ALVARADO Diagnostic Radiology ACCESSION EXAM DATE/TIME PROCEDURE ORDERING PROVIDER [id number] 12/08/2020 16:00 EST CR Chest Portable [id number] DURHAM CPT code 42549 Reason For Exam (CR Chest Portable) chest [...] RACHEL Transcribed Date and Time: 12/08/2020 4:22 [place], [place] Robert, Lakia[place] Incoming Radiology Results From [facility] - 12/08/2020 4:22 PM EST Patient Name: WILL JACINTO Diagnostic Radiology ACCESSION EXAM DATE/TIME PROCEDURE ORDERING PROVIDER [id number] 12/08/2020 16:00 EST CR Chest Portable [id number] DURHAM CPT code 87756 Reason For Exam (CR Chest Portable) chest [...] RACHEL Transcribed Date and Time: 12/08/2020 4:22 [facility], [place] CR Abdomen APon 11-28-2020 CR Abdomen AP Patient Name: WILL ALVARADO Diagnostic Radiology ACCESSION EXAM DATE/TIME PROCEDURE ORDERING PROVIDER [id number] 11/28/2020 09:00 EST CR Abdomen AP MD JD, JOHNKristina CPT code 01673 Reason For Exam (CR Abdomen AP) ileus [...] Transcribed Date and Time: 11/28/2020 9:25 Normal [facility] Comp Metabolic Panelon 11-28 ALT [Catalytic activity/Vol] 30 U/L Normal 0-34 [facility] Comment on above: Result Comment: The ALT test is performed by an updated assay method. Please note that the reference intervals have been changed and are now sex specific. Performed By: #### C MP3 #### [facility] [address] [place] [address] Calcium [Mass/Vol] 8.7 mg/dL Normal 8.4-10.4 [facility] Comment on above: Performed By: #### C MP3 #### [facility] [address] [place] [address] Glucose [Mass/Vol] 100 mg/dL Normal 70-100 [facility] Comment on above: Performed By: #### C MP3 #### [facility] [address] [place] [address] ALP [Catalytic activity/Vol] 77 U/L Normal 38-126 [facility] Comment on above: Result Comment: Slig htly hemolysed, interpret with caution. Performed By: #### C MP3 #### [facility] [address] [place] [address] Anion gap [Moles/Vol] 5 Normal [facility] Comment on above: Performed By: #### C MP3 #### [facility] [address], [place] AST [Catalytic activity/Vol] 26 U/L Normal 15-46 [facility] Comment on above: Result Comment: Georgi htly hemolysed, interpret with caution. Performed By: #### C MP3 #### [facility] [address], [place] Bilirubin [Mass/Vol] 0.6 mg/dL Normal 0.2-1.3 [facility] Comment on above: Performed By: #### C MP3 #### [facility] [address], [place] CO2 [Moles/Vol] 25 mmol/L Normal 22-30 [facility] Comment on above: Performed By: #### C MP3 #### [facility] [address], [place] Creatinine [Mass/Vol] 0.66 mg/dL Normal 0.52-1.25 [facility] Comment on above: Performed By: #### C MP3 #### [facility] [address], [place] GFR/1.73 sq M predicted among blacks MDRD (S/P/Bld) [Vol rate/Area] mL/min/{1.73_m2} Normal >60 [facility] Comment on above: Performed By: #### C MP3 #### [place] [address] [address] [place], [place] GFR/1.73 sq M predicted among non-blacks MDRD (S/P/Bld) [Vol rate/Area] mL/min/{1.73_m2} Normal >60 [facility] Comment on above: Result Comment: KDIG [...] secretion. Performed By: #### C MP3 #### [facility] [address] [place] [address] Protein [Mass/Vol] 6.0 g/dL Low 6.3-8.2 [facility] Comment on above: Performed By: #### C MP3 #### [facility] [address] [place] [address] Urea nitrogen [Mass/Vol] 10 mg/dL Normal 7-20 [facility] Comment on above: Performed By: #### C MP3 #### [facility] [address] [place] [address] Potassium [Moles/Vol] 4.3 mmol/L Normal 3.5-5.1 [facility] Comment on above: Result Comment: Slig htly hemolysed, interpret with caution. Performed By: #### C MP3 #### [facility] [address] [place] [address] Sodium [Moles/Vol] 134 mmol/L Low 135-145 [facility] Comment on above: Performed By: #### C MP3 #### [facility] [address] [place] [address] Albumin [Mass/Vol] 3.3 g/dL Low 3.5-5.0 [facility] Comment on above: Performed By: #### C MP3 #### [facility] [address] [place] [address] Chloride [Moles/Vol] 105 mmol/L Normal 98-107 [facility] Comment on above: Performed By: #### C MP3 #### [facility] [address] [place] [address] Comprehensive Metabolic Pane gigi 11-28-2020 Albumin [Mass/Vol] 3.3 g/dL Low 3.5 - 5 g/dL [place], [place] ALP [Catalytic activity/Vol] 77 U/L 38 - 126 U/L [place], [place] Comment on above: Slightly hemolysed, interpret with caution. ALT [Catalytic activity/Vol] 30 U/L 0 - 34 U/L [place] Comment on above: The ALT test is perf ormed by an updated assay method. Please note that the reference intervals have been changed and are now sex specific. Anion gap [Moles/Vol] 5 mmol/L [place], [place] AST [Catalytic activity/Vol] 26 U/L 15 - 46 U/L [place] Comment on above: Slightly hemolysed, interpret with caution. Bilirubin Ql (U) 0.6 mg/dL 0.2 - 1.3 mg/dL [place] Calcium [Mass/Vol] 8.7 mg/dL 8.4 - 10. 4 mg/dL [place] Chloride [Moles/Vol] 105 mmol/L 98 - 10 7 mmol/L [place] CO2 [Moles/Vol] 25 mmol/L 22 - 30 mmol/L [place] Creatinine [Mass/Vol] 0.66 mg/dL 0.52 - 1.25 mg/dL [place] EGFR IF NonAfrican Tajik >90.0 >60 mL/min [place] Comment on above: KDIGO guidelines pro [...] MDRD (S/P/Bld) [Vol rate/Area] mL/min/{1.73_m2} >60 mL/min [place] Glucose [Mass/Vol] 100 mg/dL 70 - 100 mg/dL [place] Interpretation and review of laboratory results Abnormal [place] Potassium [Moles/Vol] 4.3 mmol/L 3.5 - 5.1 mmol/L [place] Comment on above: Slightly hemolysed, interpret with caution. Protein [Mass/Vol] 6.0 g/dL Low 6.3 - 8.2 g/dL [place] Sodium [Moles/Vol] 134 mmol/L Low 135 - 145 mmol/L [place] Urea nitrogen [Mass/Vol] 10 mg/dL 7 - 20 mg/dL [place] Test Performed by [facility], [address] [place] [address] [place], [place] Glucose,Bedsideon 11-28-2020 Glucose [Mass/Vol] 111 mg/dL High 70-100 [facility] Comment on above: Result Comment: Test performed by glucose meter. Results may be 10%-15% lower than serum/plasma values. (CLIA ID [id number]) Performed By: #### B GLU #### [address] [address] Glucose [Mass/Vol] 166 mg/dL High 70-100 [facility] Comment on above: Result Comment: Test performed by glucose meter. Results may be 10%-15% lower than serum/plasma values. (CLIA ID [id number]) Performed By: #### B GLU #### [address] [place] [address] Glucose [Mass/Vol] 215 mg/dL High 70-100 [facility] Comment on above: Result Comment: Test performed by glucose meter. Results may be 10%-15% lower than serum/plasma values. (CLIA ID [id number]) Performed By: #### B GLU #### [address] [place] [address] POCT Glucoseon 11-28-2020 Glucose [Mass/Vol] 111 mg/dL High 70 - 100 mg/dL [facility] [place], [place] Comment on above: Test performed by gl ucose meter. Results may be 10%-15% lower than serum/plasma values. (CLIA ID [id number]) Interpretation and review of laboratory results Abnormal [facility], [place] Test Performed by [facility], [address] [place] [address] [facility] [place] Glucose [Mass/Vol] 166 mg/dL High 70 - 100 mg/dL [facility] [place] Comment on above: Test performed by gl ucose meter. Results may be 10%-15% lower than serum/plasma values. (CLIA ID [id number]) Interpretation and review of laboratory results Abnormal [facility] [place], [place] Test Performed by [facility], [address] [place] [address] [facility], [place] Glucose [Mass/Vol] 215 mg/dL High 70 - 100 mg/dL [facility], [place] Comment on above: Test performed by gl ucose meter. Results may be 10%-15% lower than serum/plasma values. (CLIA ID [id number]) Interpretation and review of laboratory results Abnormal [facility]- [place], [place] Test Performed by [facility], [address] [place] [id number] [place] [address] Surgical Pathologyon 021 Sodium [Moles/Vol] SEE BELOW [facility] [place], [place] 1 [id number] [facility] PATHOLOGY AND LABORATORY MEDICINE [address] [place] [address] [id number] FINAL SURGICAL PATHOLOGY REPORT NAME: WILL JACINTO : 1965 55 Y F BILLARLINE NO.: [id number] LOCATION: [address] [place] [address] 01 PROCEDURE 11/26/2020 DATE: SURGEON: VIRGIL MARSHALL [...] residual atypical hyperplasia. Follow-up and rebiopsy recommended. KS/KS Signature> ALLEN JERRY M.D. CLINICAL INFORMATION: Not [...] characteristics determined by the clinical laboratories of [facility]. They have not been cleared by [...] negativity on decalcified specimens. Professional Performing Location: [address] [address]. DEPARTMENT OF PATHOLOGY AND LABORATORY MEDICINE [place], [place] [address] [place] XR ABDOMEN (KUB) (SINGLE AP VIEW)on 11-28-2020 [facility] Incoming Radiology [facility] - 11/28/2020 9:26 AM EST Patient Name: WILL JACINTO Diagnostic Radiology ACCESSION EXAM DATE/TIME PROCEDURE ORDERING PROVIDER [id number] 11/28/2020 09:00 EST CR Abdomen AP MD MARTIN KHALED CPT code 25110 Reason For Exam (CR Abdomen AP) ileus [...] RISA Transcribed Date and Time: 11/28/2020 9:25 [place], [place] Patient Name: WILL ALVARADO Diagnostic Radiology ACCESSION EXAM DATE/TIME PROCEDURE ORDERING PROVIDER [id number] 11/28/2020 09:00 EST CR Abdomen AP MD MARTIN KHALED CPT code 82745 Reason For Exam (CR Abdomen AP) ileus [...] RISA Transcribed Date and Time: 11/28/2020 9:25 [place], [place] CR Abdomen APon 11-27-2020 CR Abdomen AP Patient Name: WILL ALVARADO Diagnostic Radiology ACCESSION EXAM DATE/TIME PROCEDURE ORDERING PROVIDER [id number] 11/27/2020 08:28 EST CR Abdomen AP MD MARTIN KHALED CPT code 76437 Reason For Exam (CR Abdomen AP) ileus [...] Transcribed Date and Time: 11/27/2020 8:38 Normal [facility] Comp Metabolic Panelon 11-27 ALP [Catalytic activity/Vol] 97 U/L Normal 38-126 [facility] Comment on above: Performed By: #### C MP3 #### [address] [address] ALT [Catalytic activity/Vol] 34 U/L Normal 0-34 [facility] Comment on above: Result Comment: The ALT test is performed by an updated assay method. Please note that the reference intervals have been changed and are now sex specific. Performed By: #### C MP3 #### [facility] [address] [facility] [place] Anion gap [Moles/Vol] 6 Normal [facility] Comment on above: Performed By: #### C MP3 #### [facility] [address], [place] AST [Catalytic activity/Vol] 26 U/L Normal 15-46 [facility] Comment on above: Performed By: #### C MP3 #### [facility] [address], [place] Bilirubin [Mass/Vol] 0.6 mg/dL Normal 0.2-1.3 [facility] Comment on above: Performed By: #### C MP3 #### [facility] [address], [place] Calcium [Mass/Vol] 8.2 mg/dL Low 8.4-10.4 [facility] Comment on above: Performed By: #### C MP3 #### [facility] [address], [place] CO2 [Moles/Vol] 21 mmol/L Low 22-30 [facility] Comment on above: Performed By: #### C MP3 #### [facility] [address], [place] Glucose [Mass/Vol] 225 mg/dL High 70-100 [facility] Comment on above: Performed By: #### C MP3 #### [facility] [address] [facility], [place] Protein [Mass/Vol] 6.1 g/dL Low 6.3-8.2 [facility] Comment on above: Performed By: #### C MP3 #### [facility] [address], [place] Urea nitrogen [Mass/Vol] 13 mg/dL Normal 7-20 [facility] Comment on above: Performed By: #### C MP3 #### [address] Creatinine [Mass/Vol] 0.57 mg/dL Normal 0.52-1.25 [facility] Comment on above: Performed By: #### C MP3 #### [facility] [address], [place] GFR/1.73 sq M predicted among blacks MDRD (S/P/Bld) [Vol rate/Area] mL/min/{1.73_m2} Normal >60 [facility] Comment on above: Performed By: #### C MP3 #### [address] [address] [place], [place] GFR/1.73 sq M predicted among non-blacks MDRD (S/P/Bld) [Vol rate/Area] mL/min/{1.73_m2} Normal >60 [facility] Comment on above: Result Comment: KDIG [...] secretion. Performed By: #### C MP3 #### [address] Albumin [Mass/Vol] 3.3 g/dL Low 3.5-5.0 [facility] Comment on above: Performed By: #### C MP3 #### [address] [address] [place], [place] Chloride [Moles/Vol] 104 mmol/L Normal 98-107 [facility] Comment on above: Performed By: #### C MP3 #### [facility] [address], [place] Potassium [Moles/Vol] 4.2 mmol/L Normal 3.5-5.1 [facility] Comment on above: Performed By: #### C MP3 #### [facility] [address], [place] Sodium [Moles/Vol] 132 mmol/L Low 135-145 [facility] Comment on above: Performed By: #### C MP3 #### [facility] [address], [place] Comprehensive Metabolic Pane gigi 11-27-2020 Albumin [Mass/Vol] 3.3 g/dL Low 3.5 - 5 g/dL [place] ALP [Catalytic activity/Vol] 97 U/L 38 - 126 U/L [place] ALT [Catalytic activity/Vol] 34 U/L 0 - 34 U/L [place] Comment on above: The ALT test is perf ormed by an updated assay method. Please note that the reference intervals have been changed and are now sex specific. Anion gap [Moles/Vol] 6 mmol/L [place], [place] AST [Catalytic activity/Vol] 26 U/L 15 - 46 U/L [place] Bilirubin Ql (U) 0.6 mg/dL 0.2 - 1.3 mg/dL [place] Calcium [Mass/Vol] 8.2 mg/dL Low 8.4 - 10. 4 mg/dL [place] Chloride [Moles/Vol] 104 mmol/L 98 - 10 7 mmol/L [place] CO2 [Moles/Vol] 21 mmol/L Low 22 - 30 mmol/L [place] Creatinine [Mass/Vol] 0.57 mg/dL 0.52 - 1.25 mg/dL [place] EGFR IF NonAfrican Tajik >90.0 >60 mL/min [place] Comment on above: KDIGO guidelines pro [...] MDRD (S/P/Bld) [Vol rate/Area] mL/min/{1.73_m2} >60 mL/min [place] Glucose [Mass/Vol] 225 mg/dL High 70 - 100 mg/dL [place] Interpretation and review of laboratory results Abnormal [place] Potassium [Moles/Vol] 4.2 mmol/L 3.5 - 5.1 mmol/L [place] Protein [Mass/Vol] 6.1 g/dL Low 6.3 - 8.2 g/dL [place] Sodium [Moles/Vol] 132 mmol/L Low 135 - 145 mmol/L [place] Urea nitrogen [Mass/Vol] 13 mg/dL 7 - 20 mg/dL [place] Test Performed by [facility], [address] [place] [address] [place], [place] EKG 12 Leadon 11-27-2020 [facility] Incoming Cardiology Results From [facility] - 11/27/2020 10:03 AM EST [facility] Test Date: 2020-11-26 Pat Name: Will Jacinto Department: 1A7E Room: [facility] Gender: F 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 : 1965 Requested By: GABO ESTRADA Order Number: [id number] Brian MD: Jelena Davidson Measurements Intervals [place] Rate: 85 P: 38 KS: 159 QRS: -39 QRSD: 105 T: 29 QT: 382 QTc: 455 Interpretive Statements Sinus rhythm Left ventricular hypertrophy Anterior Q waves, possibly due to LVH Electronically Signed On 11-27-2020 10:02:38 EST by Jelena [employer]den[employer]elissa [facility] [employer] MARYAM [facility] Test Date: 2020-11-26 Pat Name: Will Jacinto Department: 1A7E Room: [facility] Gender: F 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 Performed By: #### B GLU #### [facility] [address] [place] [address] Glucose [Mass/Vol] mg/dL High 70-100 [facility] Comment on above: Result Comment: Test performed by glucose meter. Results may be 10%-15% lower than serum/plasma values. (CLIA ID [id number]) Performed By: #### B GLU #### [facility] [address] [place] [address] Glucose,Bedsideon 11-27-2020 Glucose [Mass/Vol] 91 mg/dL Normal 70-100 [facility] Comment on above: Result Comment: Test performed by glucose meter. Results may be 10%-15% lower than serum/plasma values. (CLIA ID [id number]) Performed By: #### B GLU #### [facility] [address] [place] [address] Glucose [Mass/Vol] 134 mg/dL High 70-100 [facility] Comment on above: Result Comment: Test performed by glucose meter. Results may be 10%-15% lower than serum/plasma values. (CLIA ID [id number]) Performed By: #### B GLU #### [facility] [address] [place] [address] Glucose [Mass/Vol] 205 mg/dL High 70-100 [facility] Comment on above: Result Comment: Test performed by glucose meter. Results may be 10%-15% lower than serum/plasma values. (CLIA ID [id number]) Performed By: #### B GLU #### [facility] [address] [place] [address] Glucose [Mass/Vol] 223 mg/dL High 70-100 [facility] Comment on above: Result Comment: Test performed by glucose meter. Results may be 10%-15% lower than serum/plasma values. (CLIA ID [id number]) Performed By: #### B GLU #### [facility] [address] [place] [address] POC Glucose, Whole Bloodon 0 11-27-2020 Glucose [Mass/Vol] mg/dL High 70 - 100 mg/dL [place] Comment on above: Test performed by gl ucose meter. Results may be 10%-15% lower than serum/plasma values. (CLIA ID [id number]) Interpretation and review of laboratory results Abnormal [place], [place] Sodium [Moles/Vol] see below [place] Comment on above: No confirmation rece ived. Test Performed by [facility], [facility] [place], [place] [address] [place] [address] POCT Glucoseon 11-27-2020 Glucose [Mass/Vol] 91 mg/dL 70 - 100 mg/dL [place] Comment on above: Test performed by gl ucose meter. Results may be 10%-15% lower than serum/plasma values. (CLIA ID [id number]) Test Performed by [facility], [facility] [place] [address] [place], [place] Glucose [Mass/Vol] 134 mg/dL High 70 - 100 mg/dL [place] Comment on above: Test performed by gl ucose meter. Results may be 10%-15% lower than serum/plasma values. (CLIA ID [id number]) Interpretation and review of laboratory results Abnormal [facility] [place] Test Performed by [facility], [address] [place] [address] [facility] [place] Glucose [Mass/Vol] 205 mg/dL High 70 - 100 mg/dL [facility] [place] Comment on above: Test performed by gl ucose meter. Results may be 10%-15% lower than serum/plasma values. (CLIA ID [id number]) Interpretation and review of laboratory results Abnormal [facility] [place] Test Performed by [facility], [address] [place] [address] [facility] [place] Glucose [Mass/Vol] 223 mg/dL High 70 - 100 mg/dL [facility] [place] Comment on above: Test performed by gl ucose meter. Results may be 10%-15% lower than serum/plasma values. (CLIA ID [id number]) Interpretation and review of laboratory results Abnormal [facility] [place] Test Performed by [facility], [address] [place] [address] [facility] [place] XR ABDOMEN (KUB) (SINGLE AP VIEW)on 11-27-2020 Patient Name: WILL ALVARADO Diagnostic Radiology ACCESSION EXAM DATE/TIME PROCEDURE ORDERING PROVIDER [id number] 11/27/2020 08:28 EST CR Abdomen AP MD MARTIN KHALED CPT code 34384 Reason For Exam (CR Abdomen AP) ileus [...] JASON Transcribed Date and Time: 11/27/2020 8:38 [facility] Incoming Radiology Results From [facility] - 11/27/2020 8:41 AM EST Patient Name: WILL JACINTO Diagnostic Radiology ACCESSION EXAM DATE/TIME PROCEDURE ORDERING PROVIDER [id number] 11/27/2020 08:28 EST CR Abdomen AP MD JD, CHAU CPT code 55811 Reason For Exam (CR Abdomen AP) ileus [...] JASON Transcribed Date and Time: 11/27/2020 8:38 [place], [place] Comp Metabolic Panelon 11-26 ALP [Catalytic activity/Vol] 88 U/L Normal 38-126 [facility] Comment on above: Performed By: #### B GLU #### [facility] [address] [place] [address] ALT [Catalytic activity/Vol] 33 U/L Normal 0-34 [facility] Comment on above: Result Comment: The ALT test is performed by an updated assay method. Please note that the reference intervals have been changed and are now sex specific. Performed By: #### B GLU #### [facility] [employer] [facility] [address] [place] [address] Calcium [Mass/Vol] 8.9 mg/dL Normal 8.4-10.4 [facility] Comment on above: Performed By: #### B GLU #### [facility] [address], [place] Glucose [Mass/Vol] 188 mg/dL High 70-100 [facility] Comment on above: Performed By: #### B GLU #### [facility] [address], [place] Urea nitrogen [Mass/Vol] 10 mg/dL Normal 7-20 [facility] Comment on above: Performed By: #### B GLU #### [address] [address] [place], [place] Anion gap [Moles/Vol] 7 Normal [facility] Comment on above: Performed By: #### B GLU #### [address] [address] [address] [place], [place] AST [Catalytic activity/Vol] 29 U/L Normal 15-46 [facility] Comment on above: Performed By: #### B GLU #### [address] [address] [place], [place] Bilirubin [Mass/Vol] 0.5 mg/dL Normal 0.2-1.3 [facility] Comment on above: Performed By: #### B GLU #### [address] [address] [place], [place] CO2 [Moles/Vol] 25 mmol/L Normal 22-30 [facility] Comment on above: Performed By: #### B GLU #### [address] [address] [place], [place] Creatinine [Mass/Vol] 0.63 mg/dL Normal 0.52-1.25 [facility] Comment on above: Performed By: #### B GLU #### [address] [address] [place], [place] GFR/1.73 sq M predicted among blacks MDRD (S/P/Bld) [Vol rate/Area] mL/min/{1.73_m2} Normal >60 [facility] Comment on above: Performed By: #### B GLU #### [address] [address] GFR/1.73 sq M predicted among non-blacks MDRD (S/P/Bld) [Vol rate/Area] mL/min/{1.73_m2} Normal >60 [facility] Comment on above: Result Comment: KDIG [...] secretion. Performed By: #### B GLU #### [address] Protein [Mass/Vol] 6.2 g/dL Low 6.3-8.2 [facility] Comment on above: Performed By: #### B GLU #### [address] Albumin [Mass/Vol] 3.4 g/dL Low 3.5-5.0 [facility] Comment on above: Performed By: #### B GLU #### [address] Chloride [Moles/Vol] 98 mmol/L Normal 98-107 [facility] Comment on above: Performed By: #### B GLU #### [address] Potassium [Moles/Vol] 3.9 mmol/L Normal 3.5-5.1 [facility] Comment on above: Performed By: #### B GLU #### [address] Sodium [Moles/Vol] 130 mmol/L Low 135-145 [facility] Comment on above: Performed By: #### B GLU #### [facility] [address] [place], [place] Comprehensive Metabolic Pane gigi 11-26-2020 Albumin [Mass/Vol] 3.4 g/dL Low 3.5 - 5 g/dL [place] ALP [Catalytic activity/Vol] 88 U/L 38 - 126 U/L [place] ALT [Catalytic activity/Vol] 33 U/L 0 - 34 U/L [place] Comment on above: The ALT test is perf ormed by an updated assay method. Please note that the reference intervals have been changed and are now sex specific. Anion gap [Moles/Vol] 7 mmol/L [place], [place] AST [Catalytic activity/Vol] 29 U/L 15 - 46 U/L [place] Bilirubin Ql (U) 0.5 mg/dL 0.2 - 1.3 mg/dL [place] Calcium [Mass/Vol] 8.9 mg/dL 8.4 - 10. 4 mg/dL [place] Chloride [Moles/Vol] 98 mmol/L 98 - 10 7 mmol/L [place] CO2 [Moles/Vol] 25 mmol/L 22 - 30 mmol/L [place] Creatinine [Mass/Vol] 0.63 mg/dL 0.52 - 1.25 mg/dL [place] EGFR IF NonAfrican Tajik >90.0 >60 mL/min [place] Comment on above: KDIGO guidelines pro [...] MDRD (S/P/Bld) [Vol rate/Area] mL/min/{1.73_m2} >60 mL/min [place] Glucose [Mass/Vol] 188 mg/dL High 70 - 100 mg/dL [place] Interpretation and review of laboratory results Abnormal [place] Potassium [Moles/Vol] 3.9 mmol/L 3.5 - 5.1 mmol/L [place] Protein [Mass/Vol] 6.2 g/dL Low 6.3 - 8.2 g/dL [place] Sodium [Moles/Vol] 130 mmol/L Low 135 - 145 mmol/L [place] Urea nitrogen [Mass/Vol] 10 mg/dL 7 - 20 mg/dL [place] Test Performed by [facility], [address] [place] [address] [place] Glucose,Bedsideon 11-26-2020 Glucose [Mass/Vol] 254 mg/dL High 70-100 [facility] Comment on above: Result Comment: Test performed by glucose meter. Results may be 10%-15% lower than serum/plasma values. (CLIA ID [id number]) Performed By: #### B GLU #### [address] [address] [place] [address] Glucose [Mass/Vol] 383 mg/dL High 70-100 [facility] Comment on above: Result Comment: Test performed by glucose meter. Results may be 10%-15% lower than serum/plasma values. (CLIA ID [id number]) Performed By: #### B GLU #### [facility] [address] [place] [address] Glucose [Mass/Vol] 206 mg/dL High 70-100 [facility] Comment on above: Result Comment: Test performed by glucose meter. Results may be 10%-15% lower than serum/plasma values. (CLIA ID [id number]) Performed By: #### B GLU #### [facility] [address] [place] [address] Glucose [Mass/Vol] 169 mg/dL High 70-100 [facility] Comment on above: Result Comment: Test performed by glucose meter. Results may be 10%-15% lower than serum/plasma values. (CLIA ID [id number]) Performed By: #### B GLU #### [facility] [address] [place] [address] Glucose [Mass/Vol] 168 mg/dL High 70-100 [facility] Comment on above: Result Comment: Test performed by glucose meter. Results may be 10%-15% lower than serum/plasma values. (CLIA ID [id number]) Performed By: #### B GLU #### [address] 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 The lot number was [id number], expiration date 03/2024. The intrauterine device strings were trimmed approximately 3-4 cm beyond the introitus and the speculum was removed. After assuring hemostasis of the anterior lip of the cervix. There was a first-degree laceration of the introitus secondary to a narrow introitus and atrophic changes. Two qnneet-ch-uzbus stitches were used to obtain hemostasis with [...] devices during the surgery. Disk[employer] Job ID: [id number] Virgil Marshall MD DOD:11/26/2020 10:39 A JIMMYK/aaron DOT:11/26/2020 11: (more content not included)... Normal [facility] Otheron 11-26-2020 Test Performed by [facility], [facility] [place] [address] [place], [place] POCT Glucoseon 11-26-2020 Glucose [Mass/Vol] 254 mg/dL High 70 - 100 mg/dL [place] Comment on above: Test performed by gl ucose meter. Results may be 10%-15% lower than serum/plasma values. (CLIA ID [id number]) Interpretation and review of laboratory results Abnormal [place] Glucose [Mass/Vol] 383 mg/dL High 70 - 100 mg/dL [place] Comment on above: Test performed by gl ucose meter. Results may be 10%-15% lower than serum/plasma values. (CLIA ID [id number]) Interpretation and review of laboratory results Abnormal [place], [place] Test Performed by [facility], [address] [place] [address] [place], [place] Glucose [Mass/Vol] 206 mg/dL High 70 - 100 mg/dL [place], [place] Comment on above: Test performed by gl ucose meter. Results may be 10%-15% lower than serum/plasma values. (CLIA ID [id number]) Interpretation and review of laboratory results Abnormal [facility] [place]ARYAM Test Performed by [address] [address] [place], [place] Glucose [Mass/Vol] 169 mg/dL High 70 - 100 mg/dL [place] Comment on above: Test performed by gl ucose meter. Results may be 10%-15% lower than serum/plasma values. (CLIA ID [id number]) Interpretation and review of laboratory results Abnormal [facility] [employer], [place] Test Performed by [address] [address] [place], [place] Surgical Pathologyon [address] [facility] PATHOLOGY AND LABORATORY MEDICINE [address] [place] [address] FINAL SURGICAL PATHOLOGY REPORT NAME: WILL JACINTO : 1965 55 Y F BILLING NO.: [id number] LOCATION: [address] [place] [address] PROCEDURE 11/26/2020 DATE: SURGEON: VIRGIL MARSHALL M.D. [...] residual atypical hyperplasia. Follow-up and rebiopsy recommended. KS/KS Signature> ALLEN JERRY M.D. CLINICAL INFORMATION: Not provided SPECIMEN: ENDOMETRIAL CURETTINGS GROSS DESCRIPTION: Received in formalin labeled "endometrial curettings" attached to two segments of telfa are multiple, hemorrhagic segments of reddy tissue which aggregate to 3 x 3 cm. Specimen is filtered and entirely submitted into three cassettes. JCK/AVELINAF Disclaimer: The following statement applies to all immunohistochemistry, in situ hybridization, molecular studies, and immunofluorescence testing. The use of one or more reagents in the above tests is regulated as an analyte specific reagent (ASR). These tests were developed and their performance characteristics determined by the clinical laboratories of [facility]. They have not been cleared by [...] negativity on decalcified specimens. Professional Performing Location: [address] [address]. DEPARTMENT OF PATHOLOGY AND LABORATORY MEDICINE [place], [place] [address] Normal [facility] TSH without Reflexon 021 TSH Qn 2.356 u[IU]/mL 0.465 - 4.68 u[IU]/mL [place] Test Performed by [facility], [address] [place] [address] [place] Thyroid Stim. Hormoneon 11-08 Thyroid Stim. Hormone 2.356 u[IU]/mL Normal 0.465-4.68 0 [facility] Comment on above: Performed By: #### B GLU #### [address] [address] [place] [address] Troponin Ion 11-26-2020 Troponin I.cardiac [Mass/Vol] ng/mL Normal 0.000-0.034 [place] Comment on above: . Result Comment: . Performed By: #### T ROPN #### [address] [address] [place] [address] CBC Auto Differentialon 11-08 Absolute Baso # 0.1 10*3/uL 0 - 0.2 10*3/uL [place] Absolute Neut # 4.9 10*3/uL 1.8 - 7 10*3/uL [place] Basophils/100 WBC (Bld) 0.9 % 0 - 2 % [place] Eosinophils (Bld) [#/Vol] 0.1 10*3/uL 0 - 0.5 10*3/uL [place] Eosinophils/100 WBC (Bld) 1.8 % 1 - 6 % [place] Erythrocyte distribution width (RBC) [Ratio] 16.1 % High 11.5 - 14.5 % [place] Granulocytes/100 WBC (Bld) 64.4 % 40 - 80 % [place] Hematocrit (Bld) [Volume fraction] 29.4 % Low 35 - 47 % [place] Hemoglobin (Bld) [Mass/Vol] 10.0 g/dL Low 11.7 - 16 g/dL [place] Interpretation and review of laboratory results Abnormal [place] Lymphocytes (Bld) [#/Vol] 2.0 10*3/uL 1 - 4.3 10*3/uL [place] Lymphocytes/100 WBC (Bld) 25.7 % 20 - 40 % [place] MCH (RBC) [Entitic mass] 29.8 pg 26 - 34 pg [place] MCHC (RBC) [Mass/Vol] 33.9 % 32 - 36 % [place] MCV (RBC) [Entitic vol] 87.7 fL 79 - 98 fL [place] Monocytes (Bld) [#/Vol] 0.5 10*3/uL 0 - 0.8 10*3/uL [place] Monocytes/100 WBC (Bld) 7.2 % 2 - 10 % [place] Platelet mean volume (Bld) [Entitic vol] 7.6 fL 7.4 - 10.4 fL [place] Platelets (Bld) [#/Vol] 352 10*3/uL 140 - 440 10*3/uL [place] RBC (Bld) [#/Vol] 3.35 10*6/uL Low 3.8 - 5.2 10*6/uL [place] WBC (Bld) [#/Vol] 7.6 10*3/uL 3.6 - 10.7 10*3/uL [place] Test Performed by [facility], [address], [place], [place] [address] [place] Comprehensive Metabolic Pane gigi 11-25-2020 Albumin [Mass/Vol] 3.1 g/dL Low 3.5 - 5 g/dL [place] ALP [Catalytic activity/Vol] 83 U/L 38 - 126 U/L [place] ALT [Catalytic activity/Vol] 31 U/L 0 - 34 U/L [place] Comment on above: The ALT test is perf ormed by an updated assay method. Please note that the reference intervals have been changed and are now sex specific. Anion gap [Moles/Vol] 5 mmol/L [place] AST [Catalytic activity/Vol] 26 U/L 15 - 46 U/L [place] Bilirubin Ql (U) 0.4 mg/dL 0.2 - 1.3 mg/dL [place] Calcium [Mass/Vol] 8.4 mg/dL 8.4 - 10. 4 mg/dL [place] Chloride [Moles/Vol] 103 mmol/L 98 - 10 7 mmol/L [place] CO2 [Moles/Vol] 28 mmol/L 22 - 30 mmol/L [place] Creatinine [Mass/Vol] 0.76 mg/dL 0.52 - 1.25 mg/dL [place] EGFR IF NonAfrican Tajik 88.9 mL/min >60 [place] Comment on above: KDIGO guidelines pro [...] MDRD (S/P/Bld) [Vol rate/Area] mL/min/{1.73_m2} >60 mL/min [place] Glucose [Mass/Vol] 107 mg/dL High 70 - 100 mg/dL [place] Interpretation and review of laboratory results Abnormal [place] Potassium [Moles/Vol] 3.8 mmol/L 3.5 - 5.1 mmol/L [place] Protein [Mass/Vol] 5.8 g/dL Low 6.3 - 8.2 g/dL [place] Sodium [Moles/Vol] 136 mmol/L 135 - 145 mmol/L [place] Urea nitrogen [Mass/Vol] 11 mg/dL 7 - 20 mg/dL [place] Test Performed by [facility], [address] 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1965 Requested By: KYLAH DAVID Order Number: [id number] Reading MD: Justin Ramirez Measurements Intervals [place] Rate: 75 P: 45 KS: 160 QRS: -36 QRSD: 108 T: 18 QT: 392 QTc: 438 Interpretive Statements SINUS RHYTHM LATE PRECORDIAL R/S TRANSITION LEFT VENTRICULAR HYPERTROPHY LEFT ANTERIOR FASCICULAR BLOCK Compared to ECG 11/22/2020 18:01:34 Sinus tachycardia no longer present Electronically Signed On 11-25-2020 8:16:57 EST by Justin Ramirez [facility] MARYAM [facility] Test Date: 2020-11-24 Pat Name: Will IssaKelly Department: [facility] Room: 158 Gender: F 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1965 Requested By: KYLAH DAVID Order Number: [id number] Reading : Justin Ramirez Measurements Intervals [place] Rate: 75 P: 45 KS: 160 QRS: -36 QRSD: 108 T: 18 QT: 392 QTc: 438 Interpretive Statements SINUS RHYTHM LATE PRECORDIAL R/S TRANSITION LEFT VENTRICULAR HYPERTROPHY LEFT ANTERIOR FASCICULAR BLOCK Compared to ECG 11/22/2020 18:01:34 Sinus tachycardia no longer present Electronically Signed On 11-25-2020 8:16:57 EST by Justin Ramirez [place], [place] POC Glucose, Whole Bloodon 0 11-25-2020 Glucose [Mass/Vol] mg/dL High 70 - 100 mg/dL [place] Comment on above: Test performed by gl ucose meter. Results may be 10%-15% lower than serum/plasma values. (CLIA ID [id number]) Interpretation and review of laboratory results Abnormal [facility] [place] Sodium [Moles/Vol] see below [facility] [place] Comment on above: No confirmation rece ived. Test Performed by [facility], [address], [place] [address] [facility] [place] POCT Glucoseon 11-25-2020 Glucose [Mass/Vol] 168 mg/dL High 70 - 100 mg/dL [facility] [place] Comment on above: Test performed by gl ucose meter. Results may be 10%-15% lower than serum/plasma values. (CLIA ID [id number]) Interpretation and review of laboratory results Abnormal [facility] [place] Test Performed by [facility], [address] [place] [address] [facility] [place] Glucose [Mass/Vol] 248 mg/dL High 70 - 100 mg/dL [facility] [place] Comment on above: Test performed by gl ucose meter. Results may be 10%-15% lower than serum/plasma values. (CLIA ID [id number]) Interpretation and review of laboratory results Abnormal [facility] [place] Test Performed by [facility], [address], [place] [address] [facility] [place] Glucose [Mass/Vol] 202 mg/dL High 70 - 100 mg/dL [facility] [place] Comment on above: Test performed by gl ucose meter. Results may be 10%-15% lower than serum/plasma values. (CLIA ID [id number]) Interpretation and review of laboratory results Abnormal [facility] [place] Test Performed by [facility], [address], [place] [address] [facility] [place] Glucose [Mass/Vol] 121 mg/dL High 70 - 100 mg/dL [facility] [place] Comment on above: Test performed by gl ucose meter. Results may be 10%-15% lower than serum/plasma values. (CLIA ID [id number]) Interpretation and review of laboratory results Abnormal [facility] [place] Test Performed by [facility], [address], [place], [place] [address] [place] Troponinon 11-25-2020 Troponin I.cardiac [Mass/Vol] ng/mL 0 - 0.034 ng/mL [place] Comment on above: . Test Performed by [facility], [address], [place] [address] [place] US NON OB TRANSVAGINALon Robert, [facility] Incoming Radiology Results From [facility] - 11/25/2020 10:46 AM EST Patient Name: WILL JACINTO Ultrasound ACCESSION EXAM DATE/TIME PROCEDURE ORDERING PROVIDER [id number] 11/25/2020 10:38 EST US Transvaginal MD FRANCES, JAKOB CHATMAN CPT code 66050 Reason For Exam (US Transvaginal) AUB Report [...] NICHOLAS Transcribed Date and Time: 11/25/2020 10:46 [place] Patient Name: WILL ALVARADO Ultrasound ACCESSION EXAM DATE/TIME PROCEDURE ORDERING PROVIDER [id number] 11/25/2020 10:38 EST US Transvaginal MD CRAMER DIANA CHRISTINE CPT code 07349 Reason For Exam (US Transvaginal) AUB Report [...] NICHOLAS Transcribed Date and Time: 11/25/2020 10:46 [place] XR ABDOMEN (KUB) (SINGLE AP VIEW)on 11-25-2020 Robert, [facility] Incoming Radiology Results From [facility] - 11/25/2020 3:31 PM EST Patient Name: WILL JACINTO Diagnostic Radiology ACCESSION EXAM DATE/TIME PROCEDURE ORDERING PROVIDER [id number] 11/25/2020 15:08 EST CR Abdomen AP Lorenzo STAPLETON MICHAEL CPT code 17072 Reason For Exam (CR Abdomen AP) abd [...] NICHOLAS Transcribed Date and Time: 11/25/2020 3:31 [place] Patient Name: WILL ALVARADO Diagnostic Radiology ACCESSION EXAM DATE/TIME PROCEDURE ORDERING PROVIDER [id number] 11/25/2020 15:08 EST CR Abdomen AP Lorenzo STAPLETON MICHAEL CPT code 28516 Reason For Exam (CR Abdomen AP) abd [...] NICHOLAS Transcribed Date and Time: 11/25/2020 3:31 [place] CBC Auto Differentialon 11-08 Absolute Baso # 0.0 10*3/uL 0 - 0.2 10*3/uL [place] Absolute Neut # 5.4 10*3/uL 1.8 - 7 10*3/uL [place] Basophils/100 WBC (Bld) 0.7 % 0 - 2 % [place] Eosinophils (Bld) [#/Vol] 0.1 10*3/uL 0 - 0.5 10*3/uL [place] Eosinophils/100 WBC (Bld) 0.9 % Low 1 - 6 % [place] Erythrocyte distribution width (RBC) [Ratio] 16.3 % High 11.5 - 14.5 % [place] Granulocytes/100 WBC (Bld) 77.5 % 40 - 80 % [place] Hematocrit (Bld) [Volume fraction] 32.6 % Low 35 - 47 % [place] Hemoglobin (Bld) [Mass/Vol] 11.0 g/dL Low 11.7 - 16 g/dL [place] Interpretation and review of laboratory results Abnormal [place] Lymphocytes (Bld) [#/Vol] 1.1 10*3/uL 1 - 4.3 10*3/uL [place] Lymphocytes/100 WBC (Bld) 15.8 % Low 20 - 40 % [place] MCH (RBC) [Entitic mass] 29.4 pg 26 - 34 pg [place] MCHC (RBC) [Mass/Vol] 33.7 % 32 - 36 % [place] MCV (RBC) [Entitic vol] 87.4 fL 79 - 98 fL [place] Monocytes (Bld) [#/Vol] 0.4 10*3/uL 0 - 0.8 10*3/uL [place] Monocytes/100 WBC (Bld) 5.1 % 2 - 10 % [place] Platelet mean volume (Bld) [Entitic vol] 7.9 fL 7.4 - 10.4 fL [place] Platelets (Bld) [#/Vol] 332 10*3/uL 140 - 440 10*3/uL [place] RBC (Bld) [#/Vol] 3.73 10*6/uL Low 3.8 - 5.2 10*6/uL [place] WBC (Bld) [#/Vol] 6.9 10*3/uL 3.6 - 10.7 10*3/uL [place] Test Performed by [facility], [address], [place], [place] [address] [place] Comprehensive Metabolic Pane gigi 11-24-2020 Albumin [Mass/Vol] 3.6 g/dL 3.5 - 5 g/dL [place] ALP [Catalytic activity/Vol] 110 U/L 38 - 126 U/L [place] ALT [Catalytic activity/Vol] 36 U/L High 0 - 34 U/L [place] Comment on above: The ALT test is perf ormed by an updated assay method. Please note that the reference intervals have been changed and are now sex specific. Anion gap [Moles/Vol] 7 mmol/L [place] AST [Catalytic activity/Vol] 31 U/L 15 - 46 U/L [place] Bilirubin Ql (U) 0.6 mg/dL 0.2 - 1.3 mg/dL [place] Calcium [Mass/Vol] 9.1 mg/dL 8.4 - 10. 4 mg/dL [place] Chloride [Moles/Vol] 97 mmol/L Low 98 - 10 7 mmol/L [place] CO2 [Moles/Vol] 29 mmol/L 22 - 30 mmol/L [place] Creatinine [Mass/Vol] 0.74 mg/dL 0.52 - 1.25 mg/dL [place] EGFR IF NonAfrican Tajik >90.0 >60 mL/min [place] Comment on above: KDIGO guidelines pro [...] MDRD (S/P/Bld) [Vol rate/Area] mL/min/{1.73_m2} >60 mL/min [place] Glucose [Mass/Vol] 304 mg/dL High 70 - 100 mg/dL [place] Interpretation and review of laboratory results Abnormal [place] Potassium [Moles/Vol] 4.3 mmol/L 3.5 - 5.1 mmol/L [place] Protein [Mass/Vol] 6.5 g/dL 6.3 - 8.2 g/dL [place] Sodium [Moles/Vol] 133 mmol/L Low 135 - 145 mmol/L [place] Urea nitrogen [Mass/Vol] 16 mg/dL 7 - 20 mg/dL [place] Test Performed by [facility], [address] [place], [place] [address] [place] Albumin [Mass/Vol] 3.6 g/dL 3.5 - 5 g/dL [place] ALP [Catalytic activity/Vol] 115 U/L 38 - 126 U/L [place] ALT [Catalytic activity/Vol] 35 U/L High 0 - 34 U/L [place] Comment on above: The ALT test is perf ormed by an updated assay method. Please note that the reference intervals have been changed and are now sex specific. Anion gap [Moles/Vol] 6 mmol/L [place] AST [Catalytic activity/Vol] 25 U/L 15 - 46 U/L [place] Bilirubin Ql (U) 0.6 mg/dL 0.2 - 1.3 mg/dL [place] Calcium [Mass/Vol] 9.0 mg/dL 8.4 - 10. 4 mg/dL [place] Chloride [Moles/Vol] 97 mmol/L Low 98 - 10 7 mmol/L [place] CO2 [Moles/Vol] 29 mmol/L 22 - 30 mmol/L [place] Creatinine [Mass/Vol] 0.78 mg/dL 0.52 - 1.25 mg/dL [place] EGFR IF NonAfrican [place] 86.1 mL/min >60 [place] Comment on above: KDIGO guidelines pro [...] MDRD (S/P/Bld) [Vol rate/Area] mL/min/{1.73_m2} >60 mL/min [place] Glucose [Mass/Vol] 308 mg/dL High 70 - 100 mg/dL [place] Interpretation and review of laboratory results Abnormal [place] Potassium [Moles/Vol] 4.8 mmol/L 3.5 - 5.1 mmol/L [place] Protein [Mass/Vol] 6.6 g/dL 6.3 - 8.2 g/dL [place] Sodium [Moles/Vol] 132 mmol/L Low 135 - 145 mmol/L [place] Urea nitrogen [Mass/Vol] 18 mg/dL 7 - 20 mg/dL [place] Test Performed by [facility], 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: MALINDA : 1965 Requested By: JOEL NELSON Order Number: [id number] Reading MD: Brock Ortiz Measurements Intervals [place] Rate: 101 P: 58 KS: 176 QRS: -43 QRSD: 108 T: 47 QT: 380 QTc: 493 Interpretive Statements SINUS TACHYCARDIA LEFT ANTERIOR FASCICULAR BLOCK LATE PRECORDIAL R/S TRANSITION LEFT VENTRICULAR HYPERTROPHY Electronically Signed On 11-24-2020 18:47:09 EST by Brock Voyando [email or web address] [email or web address] [facility] Test Date: 2020-11-22 Pat Name: Will Jacinto Department: Room: 158 Gender: F 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: ChandrakantKemal : 1965 Requested By: JOEL NELSON Order Number: [id number] Reading MD: Brock Ortiz Measurements Intervals [place] Rate: 101 P: 58 KS: 176 QRS: -43 QRSD: 108 T: 47 QT: 380 QTc: 493 Interpretive Statements SINUS TACHYCARDIA LEFT ANTERIOR FASCICULAR BLOCK LATE PRECORDIAL R/S TRANSITION LEFT VENTRICULAR HYPERTROPHY Electronically Signed On 11-24-2020 18:47:09 EST by Brock Monetatecokristina [facility] [email or web address] LUKE'S NORTH HOSPITAL–BARRY ROADLiveLeaf [place] POCT Glucoseon 11-24-2020 Glucose [Mass/Vol] 159 mg/dL High 70 - 100 mg/dL [place] Comment on above: Test performed by gl ucose meter. Results may be 10%-15% lower than serum/plasma values. (CLIA ID [id number]) Interpretation and review of laboratory results Abnormal [facility] [place] Test Performed by [facility], [address] [place], [place], [place] [address] [place] Glucose [Mass/Vol] 235 mg/dL High 70 - 100 mg/dL [place] Comment on above: Test performed by gl ucose meter. Results may be 10%-15% lower than serum/plasma values. (CLIA ID [id number]) Interpretation and review of laboratory results Abnormal [place], [place] Test Performed by [facility], [address] [place], [place] [address] [place] [address] Glucose [Mass/Vol] 298 mg/dL High 70 - 100 mg/dL [place] Comment on above: Test performed by gl ucose meter. Results may be 10%-15% lower than serum/plasma values. (CLIA ID [id number]) Interpretation and review of laboratory results Abnormal [place] Test Performed by [facility], [address] [place] [address] Glucose [Mass/Vol] 358 mg/dL High 70 - 100 mg/dL [place] Comment on above: Test performed by gl ucose meter. Results may be 10%-15% lower than serum/plasma values. (CLIA ID [id number]) Interpretation and review of laboratory results Abnormal [place] Test Performed by [facility], [address] Troponinon 11-24-2020 Troponin I.cardiac [Mass/Vol] ng/mL 0 - 0.034 ng/mL [place] Comment on above: . Test Performed by [facility], [address] [place] [employer] Troponin I.cardiac [Mass/Vol] ng/mL 0 - 0.034 ng/mL [place] Comment on above: . Test Performed by [facility], [address] [place] [address] CBC Auto Differentialon - Absolute Baso # 0.0 10*3/uL 0 - 0.2 10*3/uL [place] Absolute Neut # 7.6 10*3/uL High 1.8 - 7 10*3/uL [place] Basophils/100 WBC (Bld) 0.3 % 0 - 2 % [place] Eosinophils (Bld) [#/Vol] 0.0 10*3/uL 0 - 0.5 10*3/uL [place] Eosinophils/100 WBC (Bld) 0.1 % Low 1 - 6 % [place] Erythrocyte distribution width (RBC) [Ratio] 16.3 % High 11.5 - 14.5 % [place] Granulocytes/100 WBC (Bld) 85.6 % High 40 - 80 % [place] Hematocrit (Bld) [Volume fraction] 33.4 % Low 35 - 47 % [place] Hemoglobin (Bld) [Mass/Vol] 11.2 g/dL Low 11.7 - 16 g/dL [place] Interpretation and review of laboratory results Abnormal [place] Lymphocytes (Bld) [#/Vol] 0.7 10*3/uL Low 1 - 4.3 10*3/uL [place] Lymphocytes/100 WBC (Bld) 7.9 % Low 20 - 40 % [place] MCH (RBC) [Entitic mass] 29.5 pg 26 - 34 pg [place] MCHC (RBC) [Mass/Vol] 33.5 % 32 - 36 % [place] MCV (RBC) [Entitic vol] 88.0 fL 79 - 98 fL [place] Monocytes (Bld) [#/Vol] 0.5 10*3/uL 0 - 0.8 10*3/uL [place] Monocytes/100 WBC (Bld) 6.1 % 2 - 10 % [place] Platelet mean volume (Bld) [Entitic vol] 8.0 fL 7.4 - 10.4 fL [place] Platelets (Bld) [#/Vol] 343 10*3/uL 140 - 440 10*3/uL [place] RBC (Bld) [#/Vol] 3.80 10*6/uL 3.8 - 5.2 10*6/uL [place] WBC (Bld) [#/Vol] 8.9 10*3/uL 3.6 - 10.7 10*3/uL [place] Test Performed by [facility], [address], [place], [place] [address] [place] Comprehensive Metabolic Pane gigi 11-23-2020 Albumin [Mass/Vol] 3.9 g/dL 3.5 - 5 g/dL [place] ALP [Catalytic activity/Vol] 136 U/L High 38 - 126 U/L [place] ALT [Catalytic activity/Vol] 42 U/L High 0 - 34 U/L [place] Comment on above: The ALT test is perf ormed by an updated assay method. Please note that the reference intervals have been changed and are now sex specific. Anion gap [Moles/Vol] 11 mmol/L [place] AST [Catalytic activity/Vol] 31 U/L 15 - 46 U/L [place] Bilirubin Ql (U) 0.6 mg/dL 0.2 - 1.3 mg/dL [place] Calcium [Mass/Vol] 9.6 mg/dL 8.4 - 10. 4 mg/dL [place] Chloride [Moles/Vol] 94 mmol/L Low 98 - 10 7 mmol/L [place] CO2 [Moles/Vol] 28 mmol/L 22 - 30 mmol/L [place] Creatinine [Mass/Vol] 0.86 mg/dL 0.52 - 1.25 mg/dL [place] EGFR IF NonAfrican Tajik 76.5 mL/min >60 [place] Comment on above: KDIGO guidelines pro [...] MDRD (S/P/Bld) [Vol rate/Area] 88.7 mL/min/{1.73_m2} >60 [place] Glucose [Mass/Vol] 481 mg/dL Critically high 70 - 1 00 mg/dL [place] Interpretation and review of laboratory results Abnormal [place] Potassium [Moles/Vol] 4.8 mmol/L 3.5 - 5.1 mmol/L [place] Protein [Mass/Vol] 6.9 g/dL 6.3 - 8.2 g/dL [place] Sodium [Moles/Vol] 133 mmol/L Low 135 - 145 mmol/L [place] Urea nitrogen [Mass/Vol] 20 mg/dL 7 - 20 mg/dL [place] Test Performed by [facility], [address] GLUCOSEon 11-23-2020 Glucose [Mass/Vol] 521 mg/dL Critically high 70 - 1 00 mg/dL [place] Interpretation and review of laboratory results Abnormal [place] Test Performed by [facility], [address] Hemoglobin A1Con 11-23-2020 eAG 240 mg/dL [place] HbA1c (Bld) [Mass fraction] 10.0 % Abnormal [place] Comment on above: Normal less than 5.7 % Prediabetes 5.7% to 6.4% Diabetes 6.5% or higher --HgbA1C levels may not be accurate in patients who have renal disease, received recent blood transfusions, are anemic, or who have dyshemoglobinemia. Interpretation and review of laboratory results Abnormal [place] Test Performed by [facility], [address] POCT Glucoseon 11-23-2020 Glucose [Mass/Vol] 305 mg/dL High 70 - 100 mg/dL [facility] [place] Comment on above: Test performed by gl ucose meter. Results may be 10%-15% lower than serum/plasma values. (CLIA ID [id number]) Interpretation and review of laboratory results Abnormal [facility] [place] Test Performed by [facility], [address] [place] [address] [facility] [place] Glucose [Mass/Vol] 427 mg/dL High 70 - 100 mg/dL [facility] [place] Comment on above: Test performed by gl ucose meter. Results may be 10%-15% lower than serum/plasma values. (CLIA ID [id number]) Interpretation and review of laboratory results Abnormal [facility] [place] Test Performed by [facility], [address], [place] [address] [facility] [place] Glucose [Mass/Vol] 408 mg/dL High 70 - 100 mg/dL [facility] [place] Comment on above: Test performed by gl ucose meter. Results may be 10%-15% lower than serum/plasma values. (CLIA ID [id number]) Interpretation and review of laboratory results Abnormal [facility] [place] Test Performed by [facility], [address] [place], [place] [address] [facility] [place] Glucose [Mass/Vol] 432 mg/dL High 70 - 100 mg/dL [facility] [place] Comment on above: Test performed by gl ucose meter. Results may be 10%-15% lower than serum/plasma values. (CLIA ID [id number]) Interpretation and review of laboratory results Abnormal [facility] [place] Test Performed by [facility], [address] [place], [place] [address] [facility] [place] Respiratory Panel, Molecular , [...] management decisions. This assay was developed by [employer] and distributed under an Emergency Use Authorization (EUA) granted by the FDA for the qualitative detection of SARS-CoV-2 nucleic acid. Provider and patient fact sheets can be found at https://www.fda.gov/medi a/466361/download and https://www.fda.gov/medi a/555588/download. [place] Test Performed by [address] [address] [place] Basic Metabolic Panelon 11-08 Anion gap [Moles/Vol] 17 mmol/L [place], [place] Calcium [Mass/Vol] 9.8 mg/dL 8.4 - 10. 4 mg/dL [place] Chloride [Moles/Vol] 94 mmol/L Low 98 - 10 7 mmol/L [place] CO2 [Moles/Vol] 23 mmol/L 22 - 30 mmol/L [place] Creatinine [Mass/Vol] 0.75 mg/dL 0.52 - 1.25 mg/dL [place] EGFR IF NonAfrican Tajik >90.0 >60 mL/min [place] Comment on above: KDIGO guidelines pro [...] MDRD (S/P/Bld) [Vol rate/Area] mL/min/{1.73_m2} >60 mL/min [place] Glucose [Mass/Vol] 522 mg/dL Critically high 70 - 1 00 mg/dL [place] Potassium [Moles/Vol] 5.5 mmol/L High 3.5 - 5.1 mmol/L [place] Sodium [Moles/Vol] 134 mmol/L Low 135 - 145 mmol/L [place] Urea nitrogen [Mass/Vol] 20 mg/dL 7 - 20 mg/dL [place] COVID-19, Rapidon 11-22-2020 Sodium [Moles/Vol] see below [place], [place] Comment on above: Not Detected Expected Result: Not Detected _ Isothermal nucleic acid amplification performed on the [employer] ID Now System by the [facility] Negative results do not preclude SARS-CoV-2 infection and should not be used as the sole basis for treatment or other patient management decisions. This assay was developed by [employer] and distributed under an Emergency Use Authorization (EUA) granted by the FDA for the qualitative detection of SARS-CoV-2 nucleic acid. Provider and patient fact sheets can be found at https://www.fda.gov/media/550582/download and https://www.fda.gov/media/142276/download. Test Performed by [facility], [address] [place] [address]. [place], [place] [address] ORDER WAS CANCELLED 11/22/20 20:20, wrong test code. [facility] [place] CT Abdomen Pelvis W Contrast on 11-22-2020 Robert, [facility] Incoming Radiology Results From [facility] - 11/22/2020 7:44 PM EST Patient Name: WILL JACINTO Computed Tomography ACCESSION EXAM DATE/TIME PROCEDURE ORDERING PROVIDER [id number] 11/22/2020 19:[address] Abdomen/Pelvis w/ IV [id number] -JEOL NELSON Contrast (IV Onl CPT code 00975 Q9967 Reason For Exam (CT Abdomen/Pelvis w/ [...] KEVIN Transcribed Date and Time: 11/22/2020 7:44 [place], [place] Patient Name: WILL ALVARADO Computed Tomography ACCESSION EXAM DATE/TIME PROCEDURE ORDERING PROVIDER [id number] 11/22/2020 19:[address] Abdomen/Pelvis w/ IV [id number] -JOEL NELSON Contrast (IV Onl CPT code 81766 Q9967 Reason For Exam (CT Abdomen/Pelvis w/ [...] KEVIN Transcribed Date and Time: 11/22/2020 7:44 [place] Hemogram (CBC) w/Auto Diffon 11-22-2020 Absolute Baso # 0.0 10*3/uL 0 - 0.2 10*3/uL [place] Absolute Neut # 8.1 10*3/uL High 1.8 - 7 10*3/uL [place] Basophils/100 WBC (Bld) 0.5 % 0 - 2 % [place] Eosinophils (Bld) [#/Vol] 0.0 10*3/uL 0 - 0.5 10*3/uL [place] Eosinophils/100 WBC (Bld) 0.3 % Low 1 - 6 % [place] Erythrocyte distribution width (RBC) [Ratio] 16.1 % High 11.5 - 14.5 % [place] Granulocytes/100 WBC (Bld) 84.9 % High 40 - 80 % [place] Hematocrit (Bld) [Volume fraction] 36.1 % 35 - 47 % [place] Hemoglobin (Bld) [Mass/Vol] 12.0 g/dL 11.7 - 16 g/dL [place] Interpretation and review of laboratory results Abnormal [place] Lymphocytes (Bld) [#/Vol] 0.9 10*3/uL Low 1 - 4.3 10*3/uL [place] Lymphocytes/100 WBC (Bld) 9.4 % Low 20 - 40 % [place] MCH (RBC) [Entitic mass] 29.0 pg 26 - 34 pg [place] MCHC (RBC) [Mass/Vol] 33.3 % 32 - 36 % [place], [place] MCV (RBC) [Entitic vol] 87.2 fL 79 - 98 fL [place], [place] Monocytes (Bld) [#/Vol] 0.5 10*3/uL 0 - 0.8 10*3/uL [place], [place] Monocytes/100 WBC (Bld) 4.9 % 2 - 10 % [place] Platelet mean volume (Bld) [Entitic vol] 8.1 fL 7.4 - 10.4 fL [place] Platelets (Bld) [#/Vol] 404 10*3/uL 140 - 440 10*3/uL [place] RBC (Bld) [#/Vol] 4.15 10*6/uL 3.8 - 5.2 10*6/uL [place] WBC (Bld) [#/Vol] 9.6 10*3/uL 3.6 - 10.7 10*3/uL [place] Test Performed by [facility], [address] [place], [place], [place] [id number] [place] [address] Hepatic Function Panelon Albumin [Mass/Vol] 4.2 g/dL 3.5 - 5 g/dL [place] ALP [Catalytic activity/Vol] 181 U/L High 38 - 126 U/L [place] ALT [Catalytic activity/Vol] 44 U/L High 0 - 34 U/L [place] Comment on above: The ALT test is perf ormed by an updated assay method. Please note that the reference intervals have been changed and are now sex specific. AST [Catalytic activity/Vol] 30 U/L 15 - 46 U/L [place] Bilirubin Ql (U) 0.6 mg/dL 0.2 - 1.3 mg/dL [place] Bilirubin.direct [Mass/Vol] 0.0 mg/dL 0 - 0.3 mg/dL [place] Protein [Mass/Vol] 7.4 g/dL 6.3 - 8.2 g/dL [place], [place] Otheron 11-22-2020 Interpretation and review of laboratory results Abnormal [place] Test Performed by [facility], [address] [place], [place], [place] [id number] [place] [address] POCT GLUCOSEon 11-22-2020 Glucose [Mass/Vol] 470 mg/dL [place], [place] Interpretation and review of laboratory results Normal [place], [place] QC OK? yes [place] Troponin x1on 11-22-2020 Troponin I.cardiac [Mass/Vol] ng/mL 0 - 0.034 ng/mL [place] Comment on above: . Test Performed by [facility], [address] [place], [place], [place] [address] [place] [address] Urinalysison 11-22-2020 Appearance (U) Turbid Abnormal Clear NA [place], [place] Comment on above: . Bilirubin Urine Negative Negative mg/dL [place] Comment on above: . Color (U) Light-[place] Abnormal Lt. Yellow NA [place] Comment on above: . Glucose, Ur >1,000 Abnormal Normal (<70) mg/dL [place], [place] Comment on above: . Interpretation and review of laboratory results Abnormal [place] Ketones Ql (U) 40 mg/dL Abnormal Negative [place], [place] Comment on above: . LEUKOCYTES, UA 75 Abnormal Negative Kat/uL [place] Comment on above: . Nitrite, Urine Negative Negative NA [place] Comment on above: . Occult Blood,Urine >1.0 Abnormal Negative mg/dL [place], [place] Comment on above: . pH (U) 6.0 [pH] [place], [place] Comment on above: . Protein (U) [Mass/Vol] 10 mg/dL Abnormal Negative Me [place], [place] Comment on above: . RBC (U) [#/Vol] /uL Abnormal 0 - 2 /[HPF] [place], [place] Comment on above: . Specific [place], Urine 1.025 M [place], [place] Comment on above: . Squam Epithel, UA 0-2 3 - 5 /[HPF] [place], [place] Comment on above: . Urobilinogen, Urine Normal Normal (0-1) mg/dL [place], [place] Comment on above: . WBC, UA 0-2 0 - 5 /[HPF] [place] Comment on above: . Test Performed by [facility], [address] [place], [place] [address] [place] XR CHEST PORTABLEon 11-22-19 21 [facility] Incoming Radiology Results From [facility] - 11/22/2020 6:33 PM EST Patient Name: WILL JACINTO Diagnostic Radiology ACCESSION EXAM DATE/TIME PROCEDURE ORDERING PROVIDER [id number] 11/22/2020 18:30 EST CR Chest Portable [id number] -JOEL NELSON CPT code 93367 Reason For Exam (CR Chest Portable) SOB [...] B Transcribed Date and Time: 11/22/2020 6:33 [place] Patient Name: WILL ALVARADO Diagnostic Radiology ACCESSION EXAM DATE/TIME PROCEDURE ORDERING PROVIDER [id number] 11/22/2020 18:30 EST CR Chest Portable [id number] -OMAR JOEL CPT code 76407 Reason For Exam (CR Chest Portable) SOB [...] B Transcribed Date and Time: 11/22/2020 6:33 [place] NM GASTRIC EMPTYINGon 2019 [facility], [facility] Incoming Radiology Results From [facility] - 09/30/2020 2:38 PM EST Patient Name: WILL JACINTO ---Nuc Med--- Exam Date/Time 09/30/2020 14:12:07 EST Exam NM Gastric Emptying Study Ordering Physician MD MUNIZ REYNALDO C. Accession Number [id number] CPT4 Codes 87210 () Reason For Exam nausea, diabetees Report [...] ANTHONY Transcribed Date and Time: 09/30/2020 2:38 [place] Patient Name: WILL ALVARADO ---Nuc Med--- Exam Date/Time 09/30/2020 14:12:07 EST Exam NM Gastric Emptying Study Ordering Physician MD MUNIZ REYNALDO C. Accession Number [id number] CPT4 Codes 54523 () Reason For Exam nausea, diabetees Report [...] ANTHONY Transcribed Date and Time: 09/30/2020 2:38 [place] POC Glucose, Whole Bloodon 1 11-30-2019 Glucose [Mass/Vol] mg/dL High 70 - 100 mg/dL [place] Comment on above: Test performed by gl ucose meter. Results may be 10%-15% lower than serum/plasma values. (CLIA ID [id number]) Interpretation and review of laboratory results Abnormal Answer.[facility] Sodium [Moles/Vol] see below [facility] Comment on above: No confirmation rece ived. Test Performed by [facility], [address] [place], [place] [address] [facility] POCT Glucoseon 09-30-2020 Glucose [Mass/Vol] 394 mg/dL High 70 - 100 mg/dL [facility] [place] Comment on above: Test performed by gl ucose meter. Results may be 10%-15% lower than serum/plasma values. (CLIA ID [id number]) Interpretation and review of laboratory results Abnormal [facility] Test Performed by [facility], [address] [place], [place] [address] [facility] Glucose [Mass/Vol] 356 mg/dL High 70 - 100 mg/dL [facility] [place] Comment on above: Test performed by gl ucose meter. Results may be 10%-15% lower than serum/plasma values. (CLIA ID [id number]) Interpretation and review of laboratory results Abnormal Answer.[facility] Test Performed by [facility], [address] [place], [place] [address] [facility] Glucose [Mass/Vol] 257 mg/dL High 70 - 100 mg/dL [facility] [place] Comment on above: Test performed by gl ucose meter. Results may be 10%-15% lower than serum/plasma values. (CLIA ID [id number]) Interpretation and review of laboratory results Abnormal Answer.[facility] Test Performed by [facility], [address] [place], [place] [address] [facility] POCT Glucoseon 09-29-2020 Glucose [Mass/Vol] 209 mg/dL High 70 - 100 mg/dL [facility] [place] Comment on above: Test performed by gl ucose meter. Results may be 10%-15% lower than serum/plasma values. (CLIA ID [id number]) Interpretation and review of laboratory results Abnormal [facility] Test Performed by [facility], [address] [place], [place] [address] [facility] [place], [place] Glucose [Mass/Vol] 301 mg/dL High 70 - 100 mg/dL [facility] [employer], [place] Comment on above: Test performed by gl ucose meter. Results may be 10%-15% lower than serum/plasma values. (CLIA ID [id number]) Interpretation and review of laboratory results Abnormal [place], [place] Test Performed by [facility], [address], [place], [place] [address] [facility] [place], [place] Glucose [Mass/Vol] 200 mg/dL High 70 - 100 mg/dL [facility] [employer], [place] Comment on above: Test performed by gl ucose meter. Results may be 10%-15% lower than serum/plasma values. (CLIA ID [id number]) Interpretation and review of laboratory results Abnormal [place], [place]AM Test Performed by [facility], [address] [place], [place] [address] [facility] [place], [place] COVID-19on 09-28-2020 SARS-CoV-2 Not Detected Not Detected [facility] [place] Comment on above: Not Detected Expected Result: Not Detected _ Real-time, RT-PCR performed on the [employer] System by the [facility] Negative results do not preclude SARS-CoV-2 infection and should not be used as the sole basis for treatment or other patient management decisions. This assay was developed by [employer] and distributed under an Emergency Use Authorization (EUA) granted by the FDA for the qualitative detection of SARS-CoV-2 nucleic acid. Provider and patient fact sheets can be found at https://www.fda.gov/media/032404/download and https://www.fda.gov/media/323818/download. Test Performed by [facility], [address] [place] [address] Specimen Source Comment:Nasopharyngeal Swab [facility] [place] POCT Glucoseon 09-28-2020 Glucose [Mass/Vol] 346 mg/dL High 70 - 100 mg/dL [facility] [place], [place] Comment on above: Test performed by gl ucose meter. Results may be 10%-15% lower than serum/plasma values. (CLIA ID [id number]) Interpretation and review of laboratory results Abnormal [facility] [place] Test Performed by [facility], [address], [place], [place] [address] [facility] Glucose [Mass/Vol] 385 mg/dL High 70 - 100 mg/dL [facility] Comment on above: Test performed by gl ucose meter. Results may be 10%-15% lower than serum/plasma values. (CLIA ID [id number]) Interpretation and review of laboratory results Abnormal [facility] Test Performed by [facility], [address], [place], [place] [address] [facility] Glucose [Mass/Vol] 393 mg/dL High 70 - 100 mg/dL [facility] Comment on above: Test performed by gl ucose meter. Results may be 10%-15% lower than serum/plasma values. (CLIA ID [id number]) Interpretation and review of laboratory results Abnormal [facility] Test Performed by [facility], [address], [place], [place] [address] [facility] Glucose [Mass/Vol] 322 mg/dL High 70 - 100 mg/dL [facility] Comment on above: Test performed by gl ucose meter. Results may be 10%-15% lower than serum/plasma values. (CLIA ID [id number]) Interpretation and review of laboratory results Abnormal [facility] [place] Test Performed by [facility], [address], [place], [place] [address] [facility] Glucose [Mass/Vol] 325 mg/dL High 70 - 100 mg/dL [facility] [place] Comment on above: Test performed by gl ucose meter. Results may be 10%-15% lower than serum/plasma values. (CLIA ID [id number]) Interpretation and review of laboratory results Abnormal [facility] [place] Test Performed by [facility], [address], [place], [place] [address] [facility] [place] Glucose [Mass/Vol] 230 mg/dL High 70 - 100 mg/dL [facility] [place] Comment on above: Test performed by gl ucose meter. Results may be 10%-15% lower than serum/plasma values. (CLIA ID [id number]) Interpretation and review of laboratory results Abnormal [facility] [place] Test Performed by [facility], [address] [place], [place] [address] [facility] Glucose [Mass/Vol] 233 mg/dL High 70 - 100 mg/dL [facility] [place] Comment on above: Test performed by gl ucose meter. Results may be 10%-15% lower than serum/plasma values. (CLIA ID [id number]) Interpretation and review of laboratory results Abnormal [facility] [place] Test Performed by [facility], [address] [place], [place] [address] [facility] POCT Glucoseon 09-27-2020 Glucose [Mass/Vol] 248 mg/dL High 70 - 100 mg/dL [facility] [place] Comment on above: Test performed by gl ucose meter. Results may be 10%-15% lower than serum/plasma values. (CLIA ID [id number]) Interpretation and review of laboratory results Abnormal [facility] [place] Test Performed by [facility], [address] [place], [place] [address] [facility] Glucose [Mass/Vol] 275 mg/dL High 70 - 100 mg/dL [facility] [place] Comment on above: Test performed by gl ucose meter. Results may be 10%-15% lower than serum/plasma values. (CLIA ID [id number]) Interpretation and review of laboratory results Abnormal [facility] [place] Test Performed by [facility], [address] [place], [place] [address] [facility] Glucose [Mass/Vol] 312 mg/dL High 70 - 100 mg/dL [facility] [place] Comment on above: Test performed by gl ucose meter. Results may be 10%-15% lower than serum/plasma values. (CLIA ID [id number]) Interpretation and review of laboratory results Abnormal [facility] [place] Test Performed by [facility], [address] [place], [place] [address] [facility] [place] Glucose [Mass/Vol] 151 mg/dL High 70 - 100 mg/dL [facility] [place] Comment on above: Test performed by gl ucose meter. Results may be 10%-15% lower than serum/plasma values. (CLIA ID [id number]) Interpretation and review of laboratory results Abnormal [place] Test Performed by [facility], [address], [place], [place] [address] [place] CBC Auto Differentialon 11 Absolute Baso # 0.1 10*3/uL 0 - 0.2 10*3/uL [place] Absolute Neut # 7.0 10*3/uL 1.8 - 7 10*3/uL [place] Basophils/100 WBC (Bld) 1.0 % 0 - 2 % [place] Eosinophils (Bld) [#/Vol] 0.1 10*3/uL 0 - 0.5 10*3/uL [place] Eosinophils/100 WBC (Bld) 1.2 % 1 - 6 % [place] Erythrocyte distribution width (RBC) [Ratio] 15.5 % High 11.5 - 14.5 % [place] Granulocytes/100 WBC (Bld) 71.3 % 40 - 80 % [place] Hematocrit (Bld) [Volume fraction] 38.5 % 35 - 47 % [place] Hemoglobin (Bld) [Mass/Vol] 12.6 g/dL 11.7 - 16 g/dL [place] Interpretation and review of laboratory results Abnormal [place] Lymphocytes (Bld) [#/Vol] 1.6 10*3/uL 1 - 4.3 10*3/uL [place] Lymphocytes/100 WBC (Bld) 16.1 % Low 20 - 40 % [place] MCH (RBC) [Entitic mass] 28.5 pg 26 - 34 pg [place] MCHC (RBC) [Mass/Vol] 32.7 % 32 - 36 % [place] MCV (RBC) [Entitic vol] 87.2 fL 79 - 98 fL [place], [place] Monocytes (Bld) [#/Vol] 1.0 10*3/uL High 0 - 0.8 10*3/uL [place] Monocytes/100 WBC (Bld) 10.4 % High 2 - 10 % [place], [place] Platelet mean volume (Bld) [Entitic vol] 8.1 fL 7.4 - 10.4 fL [place] Platelets (Bld) [#/Vol] 508 10*3/uL High 140 - 440 10*3/uL [place] RBC (Bld) [#/Vol] 4.41 10*6/uL 3.8 - 5.2 10*6/uL [place] WBC (Bld) [#/Vol] 9.8 10*3/uL 3.6 - 10.7 10*3/uL [place] Test Performed by [facility], [address] [place], [place], [place] [address] [place] Comprehensive Metabolic Pane gigi 09-26-2020 Albumin [Mass/Vol] 4.0 g/dL 3.5 - 5 g/dL [place] ALP [Catalytic activity/Vol] 120 U/L 38 - 126 U/L [place] ALT [Catalytic activity/Vol] 127 U/L High 0 - 34 U/L [place] Comment on above: The ALT test is perf ormed by an updated assay method. Please note that the reference intervals have been changed and are now sex specific. Anion gap [Moles/Vol] 12 mmol/L [place] AST [Catalytic activity/Vol] 64 U/L High 15 - 46 U/L [place] Bilirubin Ql (U) 1.4 mg/dL High 0.2 - 1.3 mg/dL [place] Calcium [Mass/Vol] 8.9 mg/dL 8.4 - 10. 4 mg/dL [place] Chloride [Moles/Vol] 97 mmol/L Low 98 - 10 7 mmol/L [place] CO2 [Moles/Vol] 24 mmol/L 22 - 30 mmol/L [place] Creatinine [Mass/Vol] 1.13 mg/dL 0.52 - 1.25 mg/dL [place] EGFR IF NonAfrican Tajik 55.1 mL/min Abnormal >60 [place] Comment on above: KDIGO guidelines pro [...] MDRD (S/P/Bld) [Vol rate/Area] 63.8 mL/min/{1.73_m2} >60 [place] Glucose [Mass/Vol] 207 mg/dL High 70 - 100 mg/dL [place] Interpretation and review of laboratory results Abnormal [place] Potassium [Moles/Vol] 4.8 mmol/L 3.5 - 5.1 mmol/L [place] Protein [Mass/Vol] 7.7 g/dL 6.3 - 8.2 g/dL [place] Sodium [Moles/Vol] 133 mmol/L Low 135 - 145 mmol/L [place] Urea nitrogen [Mass/Vol] 32 mg/dL High 7 - 20 mg/dL [place] Test Performed by [facility], [address], [place], [place] [address] [place] POCT Glucoseon 09-26-2020 Glucose [Mass/Vol] 124 mg/dL High 70 - 100 mg/dL [place] Comment on above: Test performed by ucose meter. Results may be 10%-15% lower than serum/plasma values. (CLIA ID [id number]) Interpretation and review of laboratory results Abnormal [facility] [place] Test Performed by [facility], [address] [place], [place] [address] [facility] Glucose [Mass/Vol] 225 mg/dL High 70 - 100 mg/dL [facility] [place] Comment on above: Test performed by gl ucose meter. Results may be 10%-15% lower than serum/plasma values. (CLIA ID [id number]) Interpretation and review of laboratory results Abnormal [facility] [place] Test Performed by [facility], [address] [place], [place] [address] [facility] Glucose [Mass/Vol] 308 mg/dL High 70 - 100 mg/dL [facility] [place] Comment on above: Test performed by gl ucose meter. Results may be 10%-15% lower than serum/plasma values. (CLIA ID [id number]) Interpretation and review of laboratory results Abnormal [facility] [place] Test Performed by [facility], [address], [place], [place] [address] [facility] Glucose [Mass/Vol] 259 mg/dL High 70 - 100 mg/dL [facility] [place] Comment on above: Test performed by gl ucose meter. Results may be 10%-15% lower than serum/plasma values. (CLIA ID [id number]) Interpretation and review of laboratory results Abnormal [facility] [place] Test Performed by [facility], [address] [place], [place] [address] [facility] Glucose [Mass/Vol] 223 mg/dL High 70 - 100 mg/dL [facility] [place] Comment on above: Test performed by gl ucose meter. Results may be 10%-15% lower than serum/plasma values. (CLIA ID [id number]) Interpretation and review of laboratory results Abnormal [facility] [place] Test Performed by [facility], [address] [place], [place] [address] [facility] ECHO Complete 2D W Doppler W Coloron 09-25-2020 [facility] Incoming Cardiology Results From [facility]/Jeanne - 09/25/2020 4:03 PM EST TRANSTHORACIC ECHOCARDIOGRAM PATIENT: Will Jacinto STUDY DATE: 09/25/2020 : 1965 AGE: 54 HT/WT: 167.6 cm (66 155.9 kg in) (343 lb) GENDER: F BP: 130 / 87 LOCATION: [facility] PATIENT Inpatient [facility] STATUS: *ORDERING PHYSICIAN: * Priyank Rios MD *READING PHYSICIAN: * Ga Davenport MD *CLOTHING WORKER: * Jayda Richardson INDICATIONS: SVT. CONCLUSIONS SUMMARY: [...] Ga Davenport MD 09/25/2020 16:02 Prior Signatures: [employer] MARed Crow TRANSTHORACIC ECHOCARDIOGRAM PATIENT: Will Jacinto STUDY DATE: 09/25/2020 : 1965 AGE: 54 HT/WT: 167.6 cm (66 155.9 kg in) (343 lb) GENDER: F BP: 130 / 87 LOCATION: [facility] PATIENT Inpatient [facility] STATUS: *ORDERING PHYSICIAN: * Priyank Rios MD *READING PHYSICIAN: * Ga Davenport MD *CLOTHING WORKER: * Jayda Richardson INDICATIONS: SVT. CONCLUSIONS SUMMARY: [...] Ga Davenport MD 09/25/2020 16:02 Prior Signatures: [employer] POCT Glucoseon 09-25-2020 Glucose [Mass/Vol] 126 mg/dL High 70 - 100 mg/dL [facility] [place] Comment on above: Test performed by [employer] ucose meter. Results may be 10%-15% lower than serum/plasma values. (CLIA ID [id number]) Interpretation and review of laboratory results Abnormal [facility] [place] Test Performed by [facility], [address] [place], [place] [address] [place], [place] [address] Glucose [Mass/Vol] 124 mg/dL High 70 - 100 mg/dL [facility] [place] Comment on above: Test performed by [employer] ucose meter. Results may be 10%-15% lower than serum/plasma values. (CLIA ID [id number]) Interpretation and review of laboratory results Abnormal [facility] [place] Test Performed by [employer], [address] [place], [place] [address] [facility] [place] Glucose [Mass/Vol] 173 mg/dL High 70 - 100 mg/dL [facility] [place] Comment on above: Test performed by gl ucose meter. Results may be 10%-15% lower than serum/plasma values. (CLIA ID [id number]) Interpretation and review of laboratory results Abnormal [facility] [place] Test Performed by [employer] [facility], [address] [place], [place] [address] [facility] [place] Glucose [Mass/Vol] 121 mg/dL High 70 - 100 mg/dL [facility] [place] Comment on above: Test performed by gl ucose meter. Results may be 10%-15% lower than serum/plasma values. (CLIA ID [id number]) Interpretation and review of laboratory results Abnormal [facility] [place]- [place], [place] Test Performed by [facility], [address] [place], [place] [address] [facility] XR ABDOMEN (KUB) (SINGLE AP VIEW)on 09-25-2020 Robert, [facility] Incoming Radiology Results From [facility] - 09/25/2020 3:10 PM EST Patient Name: WILL JACINTO ---Diagnostic Radiology--- Exam Date/Time 09/25/2020 14:00:36 EST Exam CR Abdomen AP Ordering Physician DO HILL LISA Accession Number [id number] CPT4 Codes 51927 () Reason For Exam ileus Report CLINICAL [...] HARLAN Transcribed Date and Time: 09/25/2020 3:09 [place], [place] Patient Name: WILL ALVARADO ---Diagnostic Radiology--- Exam Date/Time 09/25/2020 14:00:36 EST Exam CR Abdomen AP Ordering Physician DO HILL LISA Accession Number [id number] CPT4 Codes 17784 () Reason For Exam ileus Report CLINICAL [...] HARLAN Transcribed Date and Time: 09/25/2020 3:09 [place], [place] CBC Auto Differentialon 09-08 Absolute Baso # 0.0 10*3/uL 0 - 0.2 10*3/uL [place], [place] Absolute Neut # 5.3 10*3/uL 1.8 - 7 10*3/uL [place], [place] Basophils/100 WBC (Bld) 0.4 % 0 - 2 % [place], [place] Eosinophils (Bld) [#/Vol] 0.1 10*3/uL 0 - 0.5 10*3/uL [place], [place] Eosinophils/100 WBC (Bld) 1.6 % 1 - 6 % [place], [place] Erythrocyte distribution width (RBC) [Ratio] 15.8 % High 11.5 - 14.5 % [place], [place] Granulocytes/100 WBC (Bld) 74.9 % 40 - 80 % [place], [place] Hematocrit (Bld) [Volume fraction] 59.6 % High 35 - 47 % [place], [place] Hemoglobin (Bld) [Mass/Vol] 19.3 g/dL High 11.7 - 16 g/dL [place], [place] Interpretation and review of laboratory results Abnormal [place], [place] Lymphocytes (Bld) [#/Vol] 1.0 10*3/uL 1 - 4.3 10*3/uL [place], [place] Lymphocytes/100 WBC (Bld) 14.1 % Low 20 - 40 % [place], [place] MCH (RBC) [Entitic mass] 28.3 pg 26 - 34 pg [place], [place] MCHC (RBC) [Mass/Vol] 32.4 % 32 - 36 % [place], [place] MCV (RBC) [Entitic vol] 87.2 fL 79 - 98 fL [place], [place] Monocytes (Bld) [#/Vol] 0.6 10*3/uL 0 - 0.8 10*3/uL [place], [place] Monocytes/100 WBC (Bld) 9.0 % 2 - 10 % [place], [place] Platelet mean volume (Bld) [Entitic vol] 7.5 fL 7.4 - 10.4 fL [place], [place] Platelets (Bld) [#/Vol] 215 10*3/uL 140 - 440 10*3/uL [place], [place] RBC (Bld) [#/Vol] 6.83 10*6/uL High 3.8 - 5.2 10*6/uL [place], [place] WBC (Bld) [#/Vol] 7.1 10*3/uL 3.6 - 10.7 10*3/uL [place], [place] Test Performed by [facility], [address], [place] [employer], [place] [address] [place], [place] Comprehensive Metabolic Pane gigi 09-24-2020 Albumin [Mass/Vol] 3.6 g/dL 3.5 - 5 g/dL [place], [place] ALP [Catalytic activity/Vol] 116 U/L 38 - 126 U/L [place], [place] ALT [Catalytic activity/Vol] 113 U/L High 0 - 34 U/L [place], [place] Comment on above: The ALT test is perf ormed by an updated assay method. Please note that the reference intervals have been changed and are now sex specific. Anion gap [Moles/Vol] 8 mmol/L [place], [place] AST [Catalytic activity/Vol] 53 U/L High 15 - 46 U/L [place], [place] Bilirubin Ql (U) 0.9 mg/dL 0.2 - 1.3 mg/dL [place], [place] Calcium [Mass/Vol] 8.7 mg/dL 8.4 - 10. 4 mg/dL [place], [place] Chloride [Moles/Vol] 99 mmol/L 98 - 10 7 mmol/L [place], [place] CO2 [Moles/Vol] 27 mmol/L 22 - 30 mmol/L [place], [place] Creatinine [Mass/Vol] 1.97 mg/dL High 0.52 - 1.25 mg/dL [place], [place] EGFR IF NonAfrican Tajik 28.1 mL/min Abnormal >60 [place], [place] Comment on above: KDIGO guidelines pro [...] (S/P/Bld) [Vol rate/Area] 32.6 mL/min/{1.73_m2} Abnormal >60 [facility], [place] Glucose [Mass/Vol] 110 mg/dL High 70 - 100 mg/dL [place], [place] Interpretation and review of laboratory results Abnormal [place], [place] Potassium [Moles/Vol] 3.7 mmol/L 3.5 - 5.1 mmol/L [place], [place] Protein [Mass/Vol] 6.7 g/dL 6.3 - 8.2 g/dL [place], [place] Sodium [Moles/Vol] 133 mmol/L Low 135 - 145 mmol/L [place], [place] Urea nitrogen [Mass/Vol] 29 mg/dL High 7 - 20 mg/dL [place], [place] Test Performed by [facility], [address] [place], [place] [id number] [place] [address] MAGNESIUMon 09-24-2020 Magnesium [Mass/Vol] 1.7 mg/dL 1.6 - 2 .3 mg/dL [place], [place] Test Performed by [facility], [address] [place], [place] [id number] [place] [address] POCT Glucoseon 09-24-2020 Glucose [Mass/Vol] 119 mg/dL High 70 - 100 mg/dL [place], [place] Comment on above: Test performed by [employer] ucose meter. Results may be 10%-15% lower than serum/plasma values. (CLIA ID [id number]) Interpretation and review of laboratory results Abnormal [place], [place] Test Performed by [facility], [address] [place], [place] [address] [place], [place] Glucose [Mass/Vol] 187 mg/dL High 70 - 100 mg/dL [place], [place] Comment on above: Test performed by gl ucose meter. Results may be 10%-15% lower than serum/plasma values. (CLIA ID [id number]) Interpretation and review of laboratory results Abnormal [facility] Test Performed by [facility], [address], [place], [place] [address] [facility] [place], [place] Glucose [Mass/Vol] 237 mg/dL High 70 - 100 mg/dL [facility] [place], [place] Comment on above: Test performed by gl ucose meter. Results may be 10%-15% lower than serum/plasma values. (CLIA ID [id number]) Interpretation and review of laboratory results Abnormal [facility]- [place] Test Performed by [facility], [address], [place], [place] [address] [facility] [employer]- [place], [place] Glucose [Mass/Vol] 119 mg/dL High 70 - 100 mg/dL [facility] [email or web address]- [place], [place] Comment on above: Test performed by gl ucose meter. Results may be 10%-15% lower than serum/plasma values. (CLIA ID [id number]) Interpretation and review of laboratory results Abnormal [place] Test Performed by [facility], [address] [place], [place] [address] [facility] ([place]), [place] Surgical Pathologyon 020 Sodium [Moles/Vol] SEE BELOW [facility]- [place], [place] 1 [id number] [facility] PATHOLOGY AND LABORATORY MEDICINE [address] [place] [address] Fax - FINAL SURGICAL PATHOLOGY REPORT NAME: WILL JACINTO : 1965 54 Y F BILLING NO.: [id number] LOCATION: EI 260 1 PROCEDURE 09/19/2020 DATE: SURGEON: SERGIO [...] characteristics determined by the clinical laboratories of [facility]. They have not been cleared by [...] negativity on decalcified specimens. Case reviewed at [facility] [address] [place] [address]. DEPARTMENT OF PATHOLOGY AND LABORATORY MEDICINE [place], [place] [address] [place], [place] Troponinon 09-24-2020 Troponin I.cardiac [Mass/Vol] ng/mL 0 - 0.034 ng/mL [place], [place] Comment on above: . Test Performed by [facility], [address] [place], [place] [address] Chemistry specimen is slightly hemolyzed. Interpret results with caution. [place], [place] XR ABDOMEN (KUB) (SINGLE AP VIEW)on 09-24-2020 Robert, [facility] Incoming Radiology Results From [facility] - 09/24/2020 9:24 AM EST Patient Name: WILL JCAINTO ---Diagnostic Radiology--- Exam Date/Time 09/24/2020 09:15:19 EST Exam CR Abdomen AP Ordering Physician DO HILL LISA Accession Number [id number] CPT4 Codes 58491 () Reason For Exam ileus Report Abdomen [...] lateral decubitus views. Report Dictated on Workstation: [id number] --- Final --- Dictating Physician: MD UNDERWOOD BRIAN Signed Date and Time: 09/24/2020 9:22 am Signed by: MD UNDERWOOD BRIAN Transcribed Date and Time: 09/24/2020 9:23 [place], [place] Patient Name: WILL ALVARADO ---Diagnostic Radiology--- Exam Date/Time 09/24/2020 09:15:19 EST Exam CR Abdomen AP Ordering Physician DO HILL LISA Accession Number [id number] CPT4 Codes 02154 () Reason For Exam ileus Report Abdomen [...] lateral decubitus views. Report Dictated on Workstation: [id number] --- Final --- Dictating Physician: MD UNDERWOOD BRIAN Signed Date and Time: 09/24/2020 9:22 am Signed by: MD UNDERWOOD BRIAN Transcribed Date and Time: 09/24/2020 9:23 [place], [place] CBC Auto Differentialon 11- Absolute Baso # 0.1 10*3/uL 0 - 0.2 10*3/uL [place], [place] Absolute Neut # 8.9 10*3/uL High 1.8 - 7 10*3/uL [place], [place] Basophils/100 WBC (Bld) 0.7 % 0 - 2 % [place], [place] Eosinophils (Bld) [#/Vol] 0.1 10*3/uL 0 - 0.5 10*3/uL [place], [place] Eosinophils/100 WBC (Bld) 1.1 % 1 - 6 % [place], [place] Erythrocyte distribution width (RBC) [Ratio] 15.2 % High 11.5 - 14.5 % [place], [place] Granulocytes/100 WBC (Bld) 73.0 % 40 - 80 % [place], [place] Hematocrit (Bld) [Volume fraction] 35.4 % 35 - 47 % [place], [place] Hemoglobin (Bld) [Mass/Vol] 11.8 g/dL 11.7 - 16 g/dL [place], [place] Interpretation and review of laboratory results Abnormal [place], [place] Lymphocytes (Bld) [#/Vol] 1.9 10*3/uL 1 - 4.3 10*3/uL [place], [place] Lymphocytes/100 WBC (Bld) 15.7 % Low 20 - 40 % [place], [place] MCH (RBC) [Entitic mass] 29.0 pg 26 - 34 pg [place], [place] MCHC (RBC) [Mass/Vol] 33.4 % 32 - 36 % [place], [place] MCV (RBC) [Entitic vol] 86.8 fL 79 - 98 fL [place], [place] Monocytes (Bld) [#/Vol] 1.2 10*3/uL High 0 - 0.8 10*3/uL [place], [place] Monocytes/100 WBC (Bld) 9.5 % 2 - 10 % [place], [place] Platelet mean volume (Bld) [Entitic vol] 7.3 fL Low 7.4 - 10.4 fL [place], [place] Platelets (Bld) [#/Vol] 454 10*3/uL High 140 - 440 10*3/uL [place], [place] RBC (Bld) [#/Vol] 4.08 10*6/uL 3.8 - 5.2 10*6/uL [place], [place] WBC (Bld) [#/Vol] 12.1 10*3/uL High 3.6 - 10.7 10*3/uL [place], [place] Test Performed by [facility], [address], [place], [place] [address] [place], [place] Comprehensive Metabolic Pane gigi 09-23-2020 Albumin [Mass/Vol] 3.7 g/dL 3.5 - 5 g/dL [place], [place] ALP [Catalytic activity/Vol] 150 U/L High 38 - 126 U/L [place], [place] ALT [Catalytic activity/Vol] 126 U/L High 0 - 34 U/L [place], [place] Comment on above: The ALT test is perf ormed by an updated assay method. Please note that the reference intervals have been changed and are now sex specific. Anion gap [Moles/Vol] 10 mmol/L [place], [place] AST [Catalytic activity/Vol] 42 U/L 15 - 46 U/L [place], [place] Bilirubin Ql (U) 0.9 mg/dL 0.2 - 1.3 mg/dL [place], [place] Calcium [Mass/Vol] 8.6 mg/dL 8.4 - 10. 4 mg/dL [place], [place] Chloride [Moles/Vol] 93 mmol/L Low 98 - 10 7 mmol/L [place], [place] CO2 [Moles/Vol] 24 mmol/L 22 - 30 mmol/L [place], [place] Creatinine [Mass/Vol] 1.05 mg/dL 0.52 - 1.25 mg/dL [place], [place] EGFR IF NonAfrican [place] 60.2 mL/min >60 [place], [place] Comment on above: KDIGO guidelines pro [...] MDRD (S/P/Bld) [Vol rate/Area] 69.8 mL/min/{1.73_m2} >60 [place], [place] Glucose [Mass/Vol] 242 mg/dL High 70 - 100 mg/dL [place], [place] Interpretation and review of laboratory results Abnormal [place], [place] Potassium [Moles/Vol] 3.9 mmol/L 3.5 - 5.1 mmol/L [place], [place] Protein [Mass/Vol] 7.2 g/dL 6.3 - 8.2 g/dL [place], [place] Sodium [Moles/Vol] 127 mmol/L Low 135 - 145 mmol/L [place], [place] Urea nitrogen [Mass/Vol] 26 mg/dL High 7 - 20 mg/dL [place], [place] Test Performed by [facility], [address] [place], [place] [address] [place], [place] POC Glucose, Whole Bloodon 11-23-2019 Glucose [Mass/Vol] mg/dL High 70 - 100 mg/dL [place], [place] Comment on above: Test performed by ucose meter. Results may be 10%-15% lower than serum/plasma values. (CLIA ID [id number]) Interpretation and review of laboratory results Abnormal [place], [place] Sodium [Moles/Vol] see below [place], [place] Comment on above: No confirmation rece ived. Test Performed by [facility], [address] [place], [place] [address] [facility]- [place] POCT Glucoseon 09-23-2020 Glucose [Mass/Vol] 171 mg/dL High 70 - 100 mg/dL [facility]- [place] Comment on above: Test performed by gl ucose meter. Results may be 10%-15% lower than serum/plasma values. (CLIA ID [id number]) Interpretation and review of laboratory results Abnormal [facility]- [place] Test Performed by [facility], [address] [place], [place] [address] [facility]- [place] Glucose [Mass/Vol] 278 mg/dL High 70 - 100 mg/dL [facility]- [place] Comment on above: Test performed by gl ucose meter. Results may be 10%-15% lower than serum/plasma values. (CLIA ID [id number]) Interpretation and review of laboratory results Abnormal [facility] Test Performed by [facility], [address] [place], [place] [address] [place] [address] [employer]- [place] Glucose [Mass/Vol] 401 mg/dL High 70 - 100 mg/dL [facility]- [place] Comment on above: Test performed by gl ucose meter. Results may be 10%-15% lower than serum/plasma values. (CLIA ID [id number]) Interpretation and review of laboratory results Abnormal [facility] Test Performed by [facility], [address] [place], [place] [address] [place] [address] [employer]- [place] Glucose [Mass/Vol] 348 mg/dL High 70 - 100 mg/dL [facility]- [place] Comment on above: Test performed by gl ucose meter. Results may be 10%-15% lower than serum/plasma values. (CLIA ID [id number]) Interpretation and review of laboratory results Abnormal [facility]- [place] Test Performed by [facility], [address] [place], [place] [address] [facility] Glucose [Mass/Vol] 231 mg/dL High 70 - 100 mg/dL [facility] Comment on above: Test performed by gl ucose meter. Results may be 10%-15% lower than serum/plasma values. (CLIA ID [id number]) Interpretation and review of laboratory results Abnormal [place], [place] Test Performed by [facility], [address], [place], [place] [address] [place] XR ABDOMEN (KUB) (SINGLE AP VIEW)on 09-23-2020 Robert, [facility] Incoming Radiology Results From [facility] - 09/23/2020 11:02 AM EST Patient Name: WILL JACINTO ---Diagnostic Radiology--- Exam Date/Time 09/23/2020 10:26:17 EST Exam CR Abdomen AP Ordering Physician MD DAVID RICHARD H Accession Number [id number] CPT4 Codes 35582 () Reason For Exam ileus, improving Report [...] RISA Transcribed Date and Time: 09/23/2020 11:01 [place] Patient Name: WILL ALVARADO ---Diagnostic Radiology--- Exam Date/Time 09/23/2020 10:26:17 EST Exam CR Abdomen AP Ordering Physician MD DAVID RICHARD H Accession Number [id number] CPT4 Codes 95151 () Reason For Exam ileus, improving Report [...] RISA Transcribed Date and Time: 09/23/2020 11:01 [place], [place] CBC Auto Differentialon 09-08 Absolute Baso # 0.1 10*3/uL 0 - 0.2 10*3/uL [place], [place] Absolute Neut # 6.8 10*3/uL 1.8 - 7 10*3/uL [place], [place] Basophils/100 WBC (Bld) 0.9 % 0 - 2 % [place], [place] Eosinophils (Bld) [#/Vol] 0.2 10*3/uL 0 - 0.5 10*3/uL [place], [place] Eosinophils/100 WBC (Bld) 1.9 % 1 - 6 % [place], [place] Erythrocyte distribution width (RBC) [Ratio] 14.9 % High 11.5 - 14.5 % [place], [place] Granulocytes/100 WBC (Bld) 69.3 % 40 - 80 % [place], [place] Hematocrit (Bld) [Volume fraction] 35.1 % 35 - 47 % [place], [place] Hemoglobin (Bld) [Mass/Vol] 11.8 g/dL 11.7 - 16 g/dL [place], [place] Interpretation and review of laboratory results Abnormal [place], [place] Lymphocytes (Bld) [#/Vol] 1.8 10*3/uL 1 - 4.3 10*3/uL [place], [place] Lymphocytes/100 WBC (Bld) 18.3 % Low 20 - 40 % [place], [place] MCH (RBC) [Entitic mass] 29.0 pg 26 - 34 pg [place], [place] MCHC (RBC) [Mass/Vol] 33.5 % 32 - 36 % [place], [place] MCV (RBC) [Entitic vol] 86.4 fL 79 - 98 fL [place], [place] Monocytes (Bld) [#/Vol] 0.9 10*3/uL High 0 - 0.8 10*3/uL [place], [place] Monocytes/100 WBC (Bld) 9.6 % 2 - 10 % [place], [place] Platelet mean volume (Bld) [Entitic vol] 7.3 fL Low 7.4 - 10.4 fL [place], [place] Platelets (Bld) [#/Vol] 474 10*3/uL High 140 - 440 10*3/uL [place], [place] RBC (Bld) [#/Vol] 4.07 10*6/uL 3.8 - 5.2 10*6/uL [place], [place] WBC (Bld) [#/Vol] 9.7 10*3/uL 3.6 - 10.7 10*3/uL [place], [place] Test Performed by [facility], [address], [place], [place] [address] [place], [place] Comprehensive Metabolic Pane gigi 09-22-2020 Albumin [Mass/Vol] 3.7 g/dL 3.5 - 5 g/dL [place], [place] ALP [Catalytic activity/Vol] 125 U/L 38 - 126 U/L [place], [place] ALT [Catalytic activity/Vol] 137 U/L High 0 - 34 U/L [place], [place] Comment on above: The ALT test is perf ormed by an updated assay method. Please note that the reference intervals have been changed and are now sex specific. Anion gap [Moles/Vol] 5 mmol/L [place], [place] AST [Catalytic activity/Vol] 51 U/L High 15 - 46 U/L [place], [place] Bilirubin Ql (U) 0.7 mg/dL 0.2 - 1.3 mg/dL [place] Calcium [Mass/Vol] 9.0 mg/dL 8.4 - 10. 4 mg/dL [place], [place] Chloride [Moles/Vol] 94 mmol/L Low 98 - 10 7 mmol/L [place], [place] CO2 [Moles/Vol] 29 mmol/L 22 - 30 mmol/L [place], [place] Creatinine [Mass/Vol] 0.88 mg/dL 0.52 - 1.25 mg/dL [place], [place] EGFR IF NonAfrican [place] 74.5 mL/min >60 [place], [place] Comment on above: KDIGO guidelines pro [...] MDRD (S/P/Bld) [Vol rate/Area] 86.4 mL/min/{1.73_m2} >60 [place], [place] Glucose [Mass/Vol] 269 mg/dL High 70 - 100 mg/dL [place], [place] Interpretation and review of laboratory results Abnormal [place], [place] Potassium [Moles/Vol] 4.1 mmol/L 3.5 - 5.1 mmol/L [place], [place] Protein [Mass/Vol] 6.9 g/dL 6.3 - 8.2 g/dL [place], [place] Sodium [Moles/Vol] 129 mmol/L Low 135 - 145 mmol/L [place], [place] Urea nitrogen [Mass/Vol] 21 mg/dL High 7 - 20 mg/dL [place], [place] Test Performed by [facility], [address] [place], [place] [id number] [place] [address] POCT Glucoseon 09-22-2020 Glucose [Mass/Vol] 363 mg/dL High 70 - 100 mg/dL [place], [place] Comment on above: Test performed by ucose meter. Results may be 10%-15% lower than serum/plasma values. (CLIA ID [id number]) Interpretation and review of laboratory results Abnormal [facility] [email or web address] Test Performed by [facility], [address], [place] [address] [facility]- [place] Glucose [Mass/Vol] 355 mg/dL High 70 - 100 mg/dL [facility]- [place] Comment on above: Test performed by gl ucose meter. Results may be 10%-15% lower than serum/plasma values. (CLIA ID [id number]) Interpretation and review of laboratory results Abnormal [facility] Test Performed by [facility], [address], [place] [address] [facility] Glucose [Mass/Vol] 328 mg/dL High 70 - 100 mg/dL [facility] Comment on above: Test performed by gl ucose meter. Results may be 10%-15% lower than serum/plasma values. (CLIA ID [id number]) Interpretation and review of laboratory results Abnormal [facility]- [place] Test Performed by [facility], [address], [place] [address] [facility] Glucose [Mass/Vol] 277 mg/dL High 70 - 100 mg/dL [facility] [place] Comment on above: Test performed by gl ucose meter. Results may be 10%-15% lower than serum/plasma values. (CLIA ID [id number]) Interpretation and review of laboratory results Abnormal [facility]- [place] Test Performed by [facility], [address] [place], [place] [address] [employer] XR ABDOMEN (KUB) (SINGLE AP VIEW)on 09-22-2020 Patient Name: WILL ALVARADO ---Diagnostic Radiology--- Exam Date/Time 09/22/2020 07:41:53 EST Exam CR Abdomen AP Ordering Physician MD JOANN, [place]LAH Garcia Accession Number [id number] CPT4 Codes 64759 () Reason For Exam ileus Report ABDOMEN: [...] RACHEL Transcribed Date and Time: 09/22/2020 8:32 [facility]anoP Robert, [facility]coming [facility] - 09/22/2020 8:33 AM EST Patient Name: WILL JACINTO ---Diagnostic Radiology--- Exam Date/Time 09/22/2020 07:41:53 EST Exam CR Abdomen AP Ordering Physician MD JOANN, [place]LAH Garcia Accession Number [id number] CPT4 Codes 07029 () Reason For Exam ileus Report ABDOMEN: [...] RACHEL Transcribed Date and Time: 09/22/2020 8:32 [employer] GLUCOSEon 09-21-2020 Glucose [Mass/Vol] 461 mg/dL Critically high 70 - 1 00 mg/dL [place], [place] Interpretation and review of laboratory results Abnormal [place], [place] Test Performed by [facility], [address], [place], [place] [address] [facility] POCT Glucoseon 09-21-2020 Glucose [Mass/Vol] 446 mg/dL High 70 - 100 mg/dL [place], [place] Comment on above: Test performed by gl ucose meter. Results may be 10%-15% lower than serum/plasma values. (CLIA ID [id number]) Interpretation and review of laboratory results Abnormal [place] Test Performed by [facility], [address] [place], [place] [address] [facility] [employer] [place], [place] Glucose [Mass/Vol] 440 mg/dL High 70 - 100 mg/dL [facility] [employer] [place], [place] Comment on above: Test performed by gl ucose meter. Results may be 10%-15% lower than serum/plasma values. (CLIA ID [id number]) Interpretation and review of laboratory results Abnormal [facility] [place], [place] Test Performed by [facility] [email or web address] [facility], [address] [place], [place] [address] [facility] [employer] [place] Glucose [Mass/Vol] 138 mg/dL High 70 - 100 mg/dL [facility] [employer] [place] Comment on above: Test performed by gl ucose meter. Results may be 10%-15% lower than serum/plasma values. (CLIA ID [id number]) Interpretation and review of laboratory results Abnormal [facility] ([place]), [place] Test Performed by [employer] [facility], [address] [place], [place] [address] [facility] [place], [place] Basic Metabolic Panelon 11-1 Anion gap [Moles/Vol] 6 mmol/L [facility] [employer] [place], [place] Calcium [Mass/Vol] 8.7 mg/dL 8.4 - 10. 4 mg/dL [place], [place] Chloride [Moles/Vol] 101 mmol/L 98 - 10 7 mmol/L [place], [place] CO2 [Moles/Vol] 27 mmol/L 22 - 30 mmol/L [place] Creatinine [Mass/Vol] 0.81 mg/dL 0.52 - 1.25 mg/dL [place] EGFR IF NonAfrican [place]ik 82.4 mL/min >60 [facility] [place] Comment on above: KDIGO guidelines pro [...] MDRD (S/P/Bld) [Vol rate/Area] mL/min/{1.73_m2} >60 mL/min [facility]Quitt[facility] [email or web address] Glucose [Mass/Vol] 259 mg/dL High 70 - 100 mg/dL [facility] [place] Interpretation and review of laboratory results Abnormal [facility]P Potassium [Moles/Vol] 4.5 mmol/L 3.5 - 5.1 mmol/L [facility] [employer] [place] Sodium [Moles/Vol] 134 mmol/L Low 135 - 145 mmol/L [facility] [employer] [place] Urea nitrogen [Mass/Vol] 22 mg/dL High 7 - 20 mg/dL [facility] [employer] [place] Test Performed by [employer] [facility], [address] [place], [place] [address] [place], [place] [address] [employer] POCT Glucoseon 09-20-2020 Glucose [Mass/Vol] 129 mg/dL High 70 - 100 mg/dL [facility] [place] Comment on above: Test performed by [employer] ucose meter. Results may be 10%-15% lower than serum/plasma values. (CLIA ID [id number]) Interpretation and review of laboratory results Abnormal [employer] Test Performed by [facility] [facility], [address] [place], [place] [address] [facility] [employer] [place] Glucose [Mass/Vol] 192 mg/dL High 70 - 100 mg/dL [facility] [place] Comment on above: Test performed by gl ucose meter. Results may be 10%-15% lower than serum/plasma values. (CLIA ID [id number]) Interpretation and review of laboratory results Abnormal [employer] Test Performed by [employer] [facility], [address] [place], [place] [address] [facility] [place] Glucose [Mass/Vol] 352 mg/dL High 70 - 100 mg/dL [facility] [email or web address], [place] Comment on above: Test performed by gl ucose meter. Results may be 10%-15% lower than serum/plasma values. (CLIA ID [id number]) Interpretation and review of laboratory results Abnormal [facility] [place] Test Performed by [facility], [address], [place], [place] [address] [facility] [employer]- [place], [place] Glucose [Mass/Vol] 283 mg/dL High 70 - 100 mg/dL [facility] [employer]- [employer], [place] Comment on above: Test performed by gl ucose meter. Results may be 10%-15% lower than serum/plasma values. (CLIA ID [id number]) Interpretation and review of laboratory results Abnormal [facility] [place] [place] Test Performed by [facility], [address], [place] [address] [facility] [employer], [place] XR ABDOMEN (KUB) (SINGLE AP VIEW)on 09-20-2020 [place] Incoming Radiology Results From [facility] - 09/20/2020 10:48 AM EST Patient Name: WILL JACINTO ---Diagnostic Radiology--- Exam Date/Time 09/20/2020 08:59:00 EST Exam CR Abdomen AP Ordering Physician DO HILL LISA Accession Number [id number] CPT4 Codes 64437 () Reason For Exam ileus Report EXAMINATION: [...] NELSON Transcribed Date and Time: 09/20/2020 10:48 [facility] Patient Name: WILL ALVARADO ---Diagnostic Radiology--- Exam Date/Time 09/20/2020 08:59:00 EST Exam CR Abdomen AP Ordering Physician DO JOLANTA NABIL Accession Number [id number] CPT4 Codes 19521 () Reason For Exam ileus Report EXAMINATION: Abdomen: AP view. COMPARISON: 09/19/2020. REASON FOR STUDY: Ileus, nausea. FINDINGS: Small bowel loops are diffusely dilated. There is a small amount residual solid colonic content. No evidence of bowel thickening identified. No appreciable evidence of free intraperitoneal air. Osseous structures appear intact. CONCLUSIONS: Diffuse small bowel ileus versus partial distal obstruction. Report Dictated on Workstation: [employer] --- Final --- Dictating Physician: MD SCHMIDT B NELSON Signed Date and Time: 09/20/2020 10:47 am Signed by: MD SCHMIDT B NELSON Transcribed Date and Time: 09/20/2020 10:48 [place], [place] CBC Auto Differentialon 09-08 Erythrocyte distribution width (RBC) [Ratio] 15.3 % High 11.5 - 14.5 % [place] Hematocrit (Bld) [Volume fraction] 32.5 % Low 35 - 47 % [place] Hemoglobin (Bld) [Mass/Vol] 10.6 g/dL Low 11.7 - 16 g/dL [place] Interpretation and review of laboratory results Abnormal [place] MCH (RBC) [Entitic mass] 29.0 pg 26 - 34 pg [place] MCHC (RBC) [Mass/Vol] 32.7 % 32 - 36 % [place] MCV (RBC) [Entitic vol] 88.7 fL 79 - 98 fL [place], [place] Platelet mean volume (Bld) [Entitic vol] 7.3 fL Low 7.4 - 10.4 fL [place], [place] Platelets (Bld) [#/Vol] 519 10*3/uL High 140 - 440 10*3/uL [place] RBC (Bld) [#/Vol] 3.67 10*6/uL Low 3.8 - 5.2 10*6/uL [place] WBC (Bld) [#/Vol] 8.5 10*3/uL 3.6 - 10.7 10*3/uL [place] Test Performed by [facility], [address], [place], [place] [address] [place] Comprehensive Metabolic Pane gigi 09-19-2020 Albumin [Mass/Vol] 3.6 g/dL 3.5 - 5 g/dL [place] ALP [Catalytic activity/Vol] 128 U/L High 38 - 126 U/L [place] ALT [Catalytic activity/Vol] 125 U/L High 0 - 34 U/L [place] Comment on above: The ALT test is perf ormed by an updated assay method. Please note that the reference intervals have been changed and are now sex specific. Anion gap [Moles/Vol] 7 mmol/L [place], [place] AST [Catalytic activity/Vol] 68 U/L High 15 - 46 U/L [place] Bilirubin Ql (U) 0.6 mg/dL 0.2 - 1.3 mg/dL [place] Calcium [Mass/Vol] 8.9 mg/dL 8.4 - 10. 4 mg/dL [place] Chloride [Moles/Vol] 99 mmol/L 98 - 10 7 mmol/L [place] CO2 [Moles/Vol] 25 mmol/L 22 - 30 mmol/L [place] Creatinine [Mass/Vol] 0.88 mg/dL 0.52 - 1.25 mg/dL [place] EGFR IF NonAfrican Tajik 74.5 mL/min >60 [place] Comment on above: KDIGO guidelines pro [...] MDRD (S/P/Bld) [Vol rate/Area] 86.4 mL/min/{1.73_m2} >60 [place], [place] Glucose [Mass/Vol] 395 mg/dL High 70 - 100 mg/dL [place] Interpretation and review of laboratory results Abnormal [place], [place] Potassium [Moles/Vol] 5.8 mmol/L High 3.5 - 5.1 mmol/L [place] Protein [Mass/Vol] 7.2 g/dL 6.3 - 8.2 g/dL [place] Sodium [Moles/Vol] 131 mmol/L Low 135 - 145 mmol/L [place], [place] Urea nitrogen [Mass/Vol] 29 mg/dL High 7 - 20 mg/dL [place] Test Performed by [facility], [address], [place], [place] [address] [place], [place] Manual Differentialon 2019 Absolute Baso # 0.0 10*3/uL 0 - 0.2 10*3/uL [facility], [place] Absolute Eos # 0.1 10*3/uL 0 - 0.5 10*3/uL [place] Absolute Lymph # 0.9 10*3/uL Low 1.1 - 4.5 10*3/uL [facility], [place] Absolute [place] # 0.6 10*3/uL 0.2 - 1.1 10*3/uL [facility], [place] Absolute Neut # 6.5 10*3/uL 2.2 - 8.2 10*3/uL [facility], [place] Anisocytosis Ql (Bld) Slight [facility], [place] Bands 1 % 0 - 3 % [facility], [place] Basophils 0 % 0 - 2 % [facility], [place] Eosinophils 1 % 1 - 6 % [facility] Hypochromia Slight [facility] Interpretation and review of laboratory results Abnormal [facility] Lymphocytes 11 % Low 20 - 40 % [facility] Metamyelocytes 4 % Abnormal <1 [facility] Monocytes 7 % 2 - 10 % [facility] Polychromasia Slight [facility]- [place] RBC morphology finding Nom (Bld) ABNORMAL [facility]- [place] Seg Neutrophils 76 % 40 - 80 % [facility]- [place] TOTAL CELLS COUNTED 100 [facility] Test Performed by [facility], [address] [place], [place] [address] [facility] Otheron 09-19-2020 Interpretation and review of laboratory results Abnormal [facility] Test Performed by [facility], [address], [place], [place] [address] [place] [address]- [place] POCT Glucoseon 09-19-2020 Glucose [Mass/Vol] 286 mg/dL High 70 - 100 mg/dL [facility], [place] Comment on above: Test performed by gl ucose meter. Results may be 10%-15% lower than serum/plasma values. (CLIA ID [id number]) Interpretation and review of laboratory results Abnormal [facility] [employer] Test Performed by [facility], [address], [place], [place] [address] [facility]- [place], [place] Glucose [Mass/Vol] 395 mg/dL High 70 - 100 mg/dL [facility] Comment on above: Test performed by gl ucose meter. Results may be 10%-15% lower than serum/plasma values. (CLIA ID [id number]) Interpretation and review of laboratory results Abnormal [facility] [employer] Test Performed by [facility], [address] [place], [place] [address] [facility]- [place], [place] Glucose [Mass/Vol] 406 mg/dL High 70 - 100 mg/dL [facility] Comment on above: Test performed by gl ucose meter. Results may be 10%-15% lower than serum/plasma values. (CLIA ID [id number]) Glucose [Mass/Vol] 412 mg/dL High 70 - 100 mg/dL [place] Comment on above: Test performed by gl ucose meter. Results may be 10%-15% lower than serum/plasma values. (CLIA ID [id number]) XR ABDOMEN (KUB) (SINGLE AP VIEW)on 09-19-2020 [facility] Incoming Radiology Results From [facility] - 09/19/2020 1:20 PM EST Patient Name: WILL JACINTO ---Diagnostic Radiology--- Exam Date/Time 09/19/2020 12:13:39 EST Exam CR Abdomen AP Ordering Physician MD DAVID RICHARD H Accession Number [id number] CPT4 Codes 61264 () Reason For Exam ileus fu Report [...] KRIKOR Transcribed Date and Time: 09/19/2020 1:20 [place] Patient Name: WILL ALVARADO ---Diagnostic Radiology--- Exam Date/Time 09/19/2020 12:13:39 EST Exam CR Abdomen AP Ordering Physician MD DAVID RICHARD H Accession Number [id number] CPT4 Codes 44469 () Reason For Exam ileus fu Report [...] KRIKOR Transcribed Date and Time: 09/19/2020 1:20 [place] Basic Metabolic Panelon 09-08 Anion gap [Moles/Vol] 10 mmol/L [place] Calcium [Mass/Vol] 9.0 mg/dL 8.4 - 10. 4 mg/dL [place] Chloride [Moles/Vol] 99 mmol/L 98 - 10 7 mmol/L [place] CO2 [Moles/Vol] 25 mmol/L 22 - 30 mmol/L [place] Creatinine [Mass/Vol] 0.99 mg/dL 0.52 - 1.25 mg/dL [place] EGFR IF NonAfrican Tajik 64.6 mL/min >60 [place] Comment on above: KDIGO guidelines pro [...] MDRD (S/P/Bld) [Vol rate/Area] 74.9 mL/min/{1.73_m2} >60 [place] Glucose [Mass/Vol] 310 mg/dL High 70 - 100 mg/dL [place] Interpretation and review of laboratory results Abnormal [place] Potassium [Moles/Vol] 5.3 mmol/L High 3.5 - 5.1 mmol/L [place] Sodium [Moles/Vol] 134 mmol/L Low 135 - 145 mmol/L [place] Urea nitrogen [Mass/Vol] 35 mg/dL High 7 - 20 mg/dL [place] Test Performed by [facility], [address] [place], [place], [place] [address] [place] Comprehensive Metabolic Pane l w/ Reflex to MGon 09-18-2020 Albumin [Mass/Vol] 3.9 g/dL 3.5 - 5 g/dL [place] ALP [Catalytic activity/Vol] 133 U/L High 38 - 126 U/L [place] ALT [Catalytic activity/Vol] 104 U/L High 0 - 34 U/L [place] Comment on above: The ALT test is perf ormed by an updated assay method. Please note that the reference intervals have been changed and are now sex specific. Anion gap [Moles/Vol] 8 mmol/L [place], [place] AST [Catalytic activity/Vol] 74 U/L High 15 - 46 U/L [place] Bilirubin Ql (U) 0.8 mg/dL 0.2 - 1.3 mg/dL [place] Calcium [Mass/Vol] 9.2 mg/dL 8.4 - 10. 4 mg/dL [place] Chloride [Moles/Vol] 104 mmol/L 98 - 10 7 mmol/L [place] CO2 [Moles/Vol] 26 mmol/L 22 - 30 mmol/L [place] Creatinine [Mass/Vol] 0.97 mg/dL 0.52 - 1.25 mg/dL [place] EGFR IF NonAfrican [place] 66.3 mL/min >60 [place] Comment on above: KDIGO guidelines pro [...] MDRD (S/P/Bld) [Vol rate/Area] 76.8 mL/min/{1.73_m2} >60 [place] Glucose [Mass/Vol] 175 mg/dL High 70 - 100 mg/dL [place] Interpretation and review of laboratory results Abnormal [place], [place] Potassium [Moles/Vol] 5.5 mmol/L High 3.5 - 5.1 mmol/L [place] Protein [Mass/Vol] 7.8 g/dL 6.3 - 8.2 g/dL [place] Sodium [Moles/Vol] 138 mmol/L 135 - 145 mmol/L [place], [place] Urea nitrogen [Mass/Vol] 40 mg/dL High 7 - 20 mg/dL [place] Test Performed by [facility], 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1965 Requested By: ART ZENG Order Number: [id number] Reading MD: Justin Ramirez Measurements Intervals [place] Rate: 82 P: 37 KS: 172 QRS: -39 QRSD: 110 T: 26 QT: 376 QTc: 439 Interpretive Statements SINUS RHYTHM NONSPECIFIC IVCD WITH LAD LEFT VENTRICULAR HYPERTROPHY Compared to ECG 06/24/2018 21:26:56 Intraventricular conduction delay now present Electronically Signed On 09-18-2020 16:46:18 EST by Justin Ramirez [employer] [facility] Test Date: 2020-09-17 Pat Name: Will Jacinto Department: 01 Room: 268 Gender: F 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1965 Requested By: ART ZENG Order Number: [id number] Reading MD: Justin Ramirez Measurements Intervals [place] Rate: 82 P: 37 [place]: 172 QRS: -39 QRSD: 110 T: 26 QT: 376 QTc: 439 Interpretive Statements SINUS RHYTHM NONSPECIFIC IVCD WITH LAD LEFT VENTRICULAR HYPERTROPHY Compared to ECG 06/24/2018 21:26:56 Intraventricular conduction delay now present Electronically Signed On 09-18-2020 16:46:18 EST by Justin Ramirez [employer] POCT Glucoseon 09-18-2020 Glucose [Mass/Vol] 378 mg/dL High 70 - 100 mg/dL [facility] Comment on above: Test performed by gl ucose meter. Results may be 10%-15% lower than serum/plasma values. (CLIA ID [id number]) Interpretation and review of laboratory results Abnormal [employer] Test Performed by [facility], [address] [place], [place] [address] [employer] Glucose [Mass/Vol] 349 mg/dL High 70 - 100 mg/dL [facility] Comment on above: Test performed by gl ucose meter. Results may be 10%-15% lower than serum/plasma values. (CLIA ID [id number]) Interpretation and review of laboratory results Abnormal [employer] Test Performed by [employer], [address] [place], [place] [address] [facility] [place] Glucose [Mass/Vol] 341 mg/dL High 70 - 100 mg/dL [facility] Comment on above: Test performed by gl ucose meter. Results may be 10%-15% lower than serum/plasma values. (CLIA ID [id number]) Interpretation and review of laboratory results Abnormal [facility] Test Performed by [facility], [address] [place], [place] [address] [facility] Glucose [Mass/Vol] 312 mg/dL High 70 - 100 mg/dL [facility] Comment on above: Test performed by gl ucose meter. Results may be 10%-15% lower than serum/plasma values. (CLIA ID [id number]) Interpretation and review of laboratory results Abnormal [facility] Test Performed by [facility], [address] [place], [place], [place] [address] [facility] Glucose [Mass/Vol] 235 mg/dL High 70 - 100 mg/dL [facility] Comment on above: Test performed by gl ucose meter. Results may be 10%-15% lower than serum/plasma values. (CLIA ID [id number]) Interpretation and review of laboratory results Abnormal [facility]- [place] Test Performed by [facility], [address] [place], [place] [address] [facility]- [place] XR ABDOMEN (KUB) (SINGLE AP VIEW)on 09-18-2020 [place] Incoming Radiology Results From [facility] - 09/18/2020 10:26 AM EST Patient Name: WILL JACINTO ---Diagnostic Radiology--- Exam Date/Time 09/18/2020 09:25:00 EST Exam CR Abdomen AP Ordering Physician DO HILL LISA Accession Number [id number] CPT4 Codes 23262 () Reason For Exam ileus Report Clinical [...] HARLAN Transcribed Date and Time: 09/18/2020 10:25 [place] Patient Name: WILL ALVARADO ---Diagnostic Radiology--- Exam Date/Time 09/18/2020 09:25:00 EST Exam CR Abdomen AP Ordering Physician DO HILL LISA Accession Number [id number] CPT4 Codes 31128 () Reason For Exam ileus Report Clinical [...] HARLAN Transcribed Date and Time: 09/18/2020 10:25 [place] Abdomen Pelvis W Contrast on 09-17-2020 [facility] Incoming Radiology Results From [facility] - 09/17/2020 10:32 PM EST Patient Name: WILL JACINTO ---CT--- Exam Date/Time 09/17/2020 22:15:[address] Abdomen/Pelvis w/ IV Contrast (IV Onl Ordering Physician [id number] SHEIKH Accession Number [id number] CPT4 Codes 04958 (CT Abdomen/Pelvis w/ IV Contrast (IV Onl), Q9967 (CT ISOVUE 370MG/ML&[id number]&ML& 1) Reason For Exam abd pain/tenderness Report [...] Final --- Dictating Physician: MD TRAM, JAVY R Signed Date and Time: 09/17/2020 10:30 pm Signed by: MD UGALDE JOHN R Transcribed Date and Time: 09/17/2020 10:31 [place] Patient Name: WILL ALVARADO ---CT--- Exam Date/Time 09/17/2020 22:15:[address] Abdomen/Pelvis w/ IV Contrast (IV Onl Ordering Physician ART OWEN Accession Number [id number] CPT4 Codes 95470 (CT Abdomen/Pelvis w/ IV Contrast (IV Onl), Q9967 (CT ISOVUE 370MG/ML&[id number]&ML& 1) Reason For Exam abd pain/tenderness Report [...] R Transcribed Date and Time: 09/17/2020 10:31 [place] Comprehensive Metabolic Pane gigi 09-17-2020 Albumin [Mass/Vol] 4.2 g/dL 3.5 - 5 g/dL [place] ALP [Catalytic activity/Vol] 153 U/L High 38 - 126 U/L [place] ALT [Catalytic activity/Vol] 104 U/L High 0 - 34 U/L [place], [place] Comment on above: The ALT test is perf ormed by an updated assay method. Please note that the reference intervals have been changed and are now sex specific. Anion gap [Moles/Vol] 6 mmol/L [place], [place] AST [Catalytic activity/Vol] 69 U/L High 15 - 46 U/L [place] Bilirubin Ql (U) 0.5 mg/dL 0.2 - 1.3 mg/dL [place], [place] Calcium [Mass/Vol] 10.3 mg/dL 8.4 - 10. 4 mg/dL [place] Chloride [Moles/Vol] 101 mmol/L 98 - 10 7 mmol/L [place] CO2 [Moles/Vol] 29 mmol/L 22 - 30 mmol/L [place] Creatinine [Mass/Vol] 1.09 mg/dL 0.52 - 1.25 mg/dL [place], [place] EGFR IF NonAfrican [place] 57.5 mL/min Abnormal >60 [place], [place] Comment on above: KDIGO guidelines pro [...] MDRD (S/P/Bld) [Vol rate/Area] 66.7 mL/min/{1.73_m2} >60 [place], [place] Glucose [Mass/Vol] 122 mg/dL High 70 - 100 mg/dL [place], [place] Interpretation and review of laboratory results Abnormal [place] Potassium [Moles/Vol] 5.7 mmol/L High 3.5 - 5.1 mmol/L [place], [place] Protein [Mass/Vol] 7.9 g/dL 6.3 - 8.2 g/dL [place] Sodium [Moles/Vol] 137 mmol/L 135 - 145 mmol/L [place], [place] Urea nitrogen [Mass/Vol] 48 mg/dL High 7 - 20 mg/dL [place] Hemogram (CBC) w/Auto Diffon 09-17-2020 Erythrocyte distribution width (RBC) [Ratio] 14.9 % High 11.5 - 14.5 % [place] Hematocrit (Bld) [Volume fraction] 33.9 % Low 35 - 47 % [place] Hemoglobin (Bld) [Mass/Vol] 11.4 g/dL Low 11.7 - 16 g/dL [place], [place] Interpretation and review of laboratory results Abnormal [place], [place] MCH (RBC) [Entitic mass] 29.6 pg 26 - 34 pg [place] MCHC (RBC) [Mass/Vol] 33.7 % 32 - 36 % [place] MCV (RBC) [Entitic vol] 87.8 fL 79 - 98 fL [place], [place] Platelet mean volume (Bld) [Entitic vol] 7.5 fL 7.4 - 10.4 fL [facility] Platelets (Bld) [#/Vol] 544 10*3/uL High 140 - 440 10*3/uL [facility]- [place] RBC (Bld) [#/Vol] 3.87 10*6/uL 3.8 - 5.2 10*6/uL [facility]- [place] WBC (Bld) [#/Vol] 11.0 10*3/uL High 3.6 - 10.7 10*3/uL [facility]- [place] Test Performed by [facility], [address], [place], [place] [address] [facility]- [place] Lipaseon 09-17-2020 Lipase [Catalytic activity/Vol] 39 U/L 23 - 300 U/L [facility]- [place] Manual Differentialon 2019 Absolute Baso # 0.0 10*3/uL 0 - 0.2 10*3/uL [facility]- [place] Absolute Eos # 0.0 10*3/uL 0 - 0.5 10*3/uL [facility] [place] Absolute Lymph # 0.8 10*3/uL Low 1.1 - 4.5 10*3/uL [facility]- [place] Absolute [place] # 0.8 10*3/uL 0.2 - 1.1 10*3/uL [facility]- [place] Absolute Neut # 9.4 10*3/uL High 2.2 - 8.2 10*3/uL [facility]- [place] Bands 1 % 0 - 3 % [facility] Basophils 0 % 0 - 2 % [facility]- [place] Eosinophils 0 % Low 1 - 6 % [facility] Interpretation and review of laboratory results Abnormal [facility] Lymphocytes 7 % Low 20 - 40 % [facility] [place] Monocytes 7 % 2 - 10 % [facility] Myelocytes 1 % Abnormal <1 [facility] Polychromasia Slight [facility]- [place] RBC morphology finding Nom (Bld) ABNORMAL [facility]- [place] Seg Neutrophils 84 % High 40 - 80 % [facility]- [place] TOTAL CELLS COUNTED 100 [facility] Test Performed by [facility], [address], [place], [place] [address] [place] Otheron 09-17-2020 Test Performed by [facility], [address] [place], [place] [address] [place], [place] POCT Glucoseon 09-17-2020 Glucose [Mass/Vol] 124 mg/dL High 70 - 100 mg/dL [place] Comment on above: Test performed by ucose meter. Results may be 10%-15% lower than serum/plasma values. (CLIA ID [id number]) Interpretation and review of laboratory results Abnormal [place] Test Performed by [facility], [address] [place], [place] [address] [place] Troponin x1on 09-17-2020 Troponin I.cardiac [Mass/Vol] ng/mL 0 - 0.034 ng/mL [place], [place] Comment on above: . Test Performed by [facility], [address] [place], [place] [id number] [place] [address] Urinalysison 09-17-2020 Appearance (U) Clear Clear [place], [place] Comment on above: . Bilirubin Urine Negative Negative mg/dL [place], [place] Comment on above: . Color (U) Yellow Lt. Yellow NA [place], [place] Comment on above: . Glucose, Ur Normal Normal (<70) mg/dL [place], [place] Comment on above: . Interpretation and review of laboratory results Abnormal [place] Ketones Ql (U) Trace Abnormal Negative mg/dL [place], [place] Comment on above: . LEUKOCYTES, UA 25 Abnormal Negative Kat/uL [place], [place] Comment on above: . Mucous Threads Few Negative /[LPF] [place], [place] Comment on above: . Nitrite, Urine Negative Negative NA [place], [place] Comment on above: . Occult Blood,Urine 1.0 mg/dL Abnormal Negative [place], [place] Comment on above: . pH (U) 5.5 [pH] [place] Comment on above: . Protein (U) [Mass/Vol] 10 mg/dL Abnormal Negative [place], [place] Comment on above: . RBC (U) [#/Vol] 51-100 Abnormal 0 - 2 /[HPF] [place], [place] Comment on above: . Specific [place], Urine 1.021 M [place], [place] Comment on above: . Squam Epithel, UA 0-2 3 - 5 /[HPF] [place], [place] Comment on above: . Urobilinogen, Urine Normal Normal (0-1) mg/dL [place], [place] Comment on above: . WBC, UA 0-2 0 - 5 /[HPF] [place], [place] Comment on above: . Test Performed by [facility], [address], [place], [place] [address] [place] Basic Metabolic Panelon -2 Calcium [Mass/Vol] 9.9 mg/dL Normal 8.4-10.4 [facility] Comment on above: Performed By: #### B GLU #### [place] [address] [address] [place], [place] Glucose [Mass/Vol] 404 mg/dL High 70-100 [facility] Comment on above: Performed By: #### B GLU #### [place] [address] [place] [place], [place] Anion gap [Moles/Vol] 13 Normal [facility] Comment on above: Performed By: #### B GLU #### [place] [address] [place] [place], [place] CO2 [Moles/Vol] 28 mmol/L Normal 22-30 [facility] Comment on above: Performed By: #### B GLU #### [place] [address] [place] [place], [place] Creatinine [Mass/Vol] 0.95 mg/dL Normal 0.52-1.25 [facility] Comment on above: Performed By: #### B GLU #### [place] [address] [place] [place], [place] GFR/1.73 sq M predicted among blacks MDRD (S/P/Bld) [Vol rate/Area] mL/min/{1.73_m2} Normal >60 [facility] Comment on above: Performed By: #### B GLU #### [place] [address] [address] [place], [place] GFR/1.73 sq M predicted among non-blacks MDRD (S/P/Bld) [Vol rate/Area] mL/min/{1.73_m2} Normal >60 [facility] Comment on above: Result Comment: Sour ce- MDRD equation with creatinine calibration to IDMS(NKDEP) eGFR not recommended for drug dose adjustment Performed By: #### B GLU #### [facility] [address] [place], [place] Urea nitrogen [Mass/Vol] 23 mg/dL High 7-20 [facility] Comment on above: Performed By: #### B GLU #### [facility] [address] [place], [place] Chloride [Moles/Vol] 94 mmol/L Low 98-107 [facility] Comment on above: Performed By: #### B GLU #### [place] [address] [address] [place], [place] Potassium [Moles/Vol] 4.8 mmol/L Normal 3.5-5.1 [facility] Comment on above: Performed By: #### B GLU #### [facility] [address] [place], [place] Sodium [Moles/Vol] 135 mmol/L Normal 135-145 [facility] Comment on above: Performed By: #### B GLU #### [facility] [address] [place], [place] Basic Metabolic Panel w/ Ref kaye to MGon 01-02-2020 Anion gap [Moles/Vol] 13 mmol/L [place], [place] Calcium [Mass/Vol] 9.9 mg/dL 8.4 - 10. 4 mg/dL [place] Chloride [Moles/Vol] 94 mmol/L Low 98 - 10 7 mmol/L [place] CO2 [Moles/Vol] 28 mmol/L 22 - 30 mmol/L [place] Creatinine [Mass/Vol] 0.95 mg/dL 0.52 - 1.25 mg/dL [place] EGFR IF NonAfrican Tajik >60.0 >60 mL/min [place] Comment on above: Source- MDRD equatio n with creatinine calibration to IDMS(NKDEP) eGFR not recommended for drug dose adjustment GFR/1.73 sq M predicted among blacks MDRD (S/P/Bld) [Vol rate/Area] mL/min/{1.73_m2} >60 mL/min [place] Glucose [Mass/Vol] 404 mg/dL High 70 - 100 mg/dL [place] Interpretation and review of laboratory results Abnormal [place] Potassium [Moles/Vol] 4.8 mmol/L 3.5 - 5.1 mmol/L [place] Sodium [Moles/Vol] 135 mmol/L 135 - 145 mmol/L [place] Urea nitrogen [Mass/Vol] 23 mg/dL High 7 - 20 mg/dL [place] Test Performed by [facility], [address] [place] [id number] [place] [address] Hemoglobin AND Hematocriton 01-02-2020 Hematocrit (Bld) [Volume fraction] 40.5 % Normal 35.0-47.0 [facility] Comment on above: Performed By: #### B GLU #### [address] [place] [address] [place] Hemoglobin (Bld) [Mass/Vol] 13.5 g/dL Normal 11.7-16.0 [facility] Comment on above: Performed By: #### B GLU #### [address] [address] [place], [place] Hemoglobin and Hematocrit, B loodon 01-02-2020 Hematocrit (Bld) [Volume fraction] 40.5 % 35 - 47 % [place] Hemoglobin (Bld) [Mass/Vol] 13.5 g/dL 11.7 - 16 g/dL [place] Test Performed by [facility], [address] [place] [id number] [place] [address] Add On Lab Teston 06-27-2019 Sodium [Moles/Vol] Accepted [place] Comment on above: Specimen available & acceptable for analysis. Test Performed by [facility], [address], [place] [address] [place] C-Reactive Proteinon 019 CRP [Mass/Vol] 45.5 mg/L High 0 - 6 mg/L [place] Comment on above: . Interpretation and review of laboratory results Abnormal [place] Test Performed by [facility], [address], [place] [address] [place] Sedimentation Rateon 019 Interpretation and review of laboratory results Abnormal [place] Sed Rate 130 mm/h High 0 - 20 mm/h [place] Test Performed by [facility], [address], [place] [address] [place] Comprehensive Metabolic Pane gigi 06-26-2019 Albumin [Mass/Vol] 3.6 g/dL 3.5 - 5 g/dL [place] ALP [Catalytic activity/Vol] 165 U/L High 38 - 126 U/L [place] ALT [Catalytic activity/Vol] 37 U/L 13 - 69 U/L [place] Anion gap [Moles/Vol] 9 mmol/L [place] AST [Catalytic activity/Vol] 21 U/L 15 - 46 U/L [place] Bilirubin Ql (U) 0.5 mg/dL 0.2 - 1.3 mg/dL [place] Calcium [Mass/Vol] 8.8 mg/dL 8.4 - 10. 4 mg/dL [place] Chloride [Moles/Vol] 102 mmol/L 98 - 10 7 mmol/L [place] CO2 [Moles/Vol] 26 mmol/L 22 - 30 mmol/L [place] Creatinine [Mass/Vol] 1.06 mg/dL 0.52 - 1.25 mg/dL [place] EGFR IF NonAfrican Tajik 54.3 mL/min >60 [place] Comment on above: Source- MDRD equatio n with creatinine calibration to IDMS(NKDEP) eGFR not recommended for drug dose adjustment GFR/1.73 sq M predicted among blacks MDRD (S/P/Bld) [Vol rate/Area] mL/min/{1.73_m2} >60 mL/min [place] Glucose [Mass/Vol] 156 mg/dL High 70 - 100 mg/dL [place] Interpretation and review of laboratory results Abnormal [place] Potassium [Moles/Vol] 4.5 mmol/L 3.5 - 5.1 mmol/L [place] Protein [Mass/Vol] 6.9 g/dL 6.3 - 8.2 g/dL [place] Sodium [Moles/Vol] 137 mmol/L 135 - 145 mmol/L [place] Urea nitrogen [Mass/Vol] 28 mg/dL High 7 - 20 mg/dL [place] Test Performed by [facility], [address], [place], [place] [address] [place] Hemogram (CBC) w/Auto Diffon 06-26-2019 Absolute Baso # 0.1 10*3/uL 0 - 0.2 10*3/uL [place] Absolute Neut # 5.3 10*3/uL 1.8 - 7 10*3/uL [place] Basophils/100 WBC (Bld) 0.7 % 0 - 2 % [place] Eosinophils (Bld) [#/Vol] 0.2 10*3/uL 0 - 0.5 10*3/uL [place] Eosinophils/100 WBC (Bld) 2.0 % 1 - 6 % [place] Erythrocyte distribution width (RBC) [Ratio] 21.5 % High 11.5 - 14.5 % [place] Granulocytes/100 WBC (Bld) 65.6 % 40 - 80 % [place] Hematocrit (Bld) [Volume fraction] 22.8 % Low 35 - 47 % [place] Hemoglobin (Bld) [Mass/Vol] 7.3 g/dL Low 11.7 - 16 g/dL [place] Interpretation and review of laboratory results Abnormal [place] Lymphocytes (Bld) [#/Vol] 1.8 10*3/uL 1 - 4.3 10*3/uL [place] Lymphocytes/100 WBC (Bld) 21.6 % 20 - 40 % [place] MCH (RBC) [Entitic mass] 23.8 pg Low 26 - 34 pg [place] MCHC (RBC) [Mass/Vol] 32.0 % 32 - 36 % [place] MCV (RBC) [Entitic vol] 74.3 fL Low 79 - 98 fL [place], [place] Monocytes (Bld) [#/Vol] 0.8 10*3/uL 0 - 0.8 10*3/uL [place] Monocytes/100 WBC (Bld) 10.1 % High 2 - 10 % [place] Platelet mean volume (Bld) [Entitic vol] 6.7 fL Low 7.4 - 10.4 fL [place] Platelets (Bld) [#/Vol] 540 10*3/uL High 140 - 440 10*3/uL [place] RBC (Bld) [#/Vol] 3.07 10*6/uL Low 3.8 - 5.2 10*6/uL [place] WBC (Bld) [#/Vol] 8.1 10*3/uL 3.6 - 10.7 10*3/uL [place] Test Performed by [facility], [address] [place], [place] [id number] [place] [address] Lactic Acid, Plasmaon 2018 Lactate [Moles/Vol] 1.7 mmol/L 0.7 - 2 mmol/L [place] Test Performed by [facility], [address] [place], [place] [address] [place] Metabolic Panelon 06-26-2019 Sodium [Moles/Vol] Slight [place] Otheron 06-26-2019 Test Performed by [facility], [address] [place] [address] [place] RBC MORPHOLOGYon 06-26-2019 Anisocytosis Ql (Bld) Slight [facility] [place] Basophilic stippling LM Ql (Bld) Slight [facility] [place] RBC morphology finding Nom (Bld) ABNORMAL [facility] Sodium [Moles/Vol] Moderate [facility] [place] TYPE AND SCREENon 06-26-2019 Sodium [Moles/Vol] Positive [facility] Comment on above: Test Performed by [facility], [address], [place], [place] [address] Sodium [Moles/Vol] Negative [facility] Comment on above: Test Performed by [facility], [address], [place], [place] [address] Sodium [Moles/Vol] O [facility] XR FEMUR RIGHT (MIN 2 VIEWS) on 06-26-2019 Patient Name: WILL ALVARADO ---Diagnostic Radiology--- Exam Date/Time 06/26/2019 22:31:46 EDT Exam CR Femur 2+ Views Right n Ordering Physician KELLEY ELLIOTT TAYLOR Accession Number [id number] CPT4 Codes 07522 () Reason For Exam right AKA wound drainage, swelling, erythema and warmth Report RIGHT FEMUR TWO VIEWS CLINICAL INDICATION: right AKA wound drainage, swelling, erythema and warmth TECHNIQUE: Two views of the right femur. COMPARISON: 06/14/2019 FINDINGS: Status post recent [id number] amputation. Overlying soft tissue swelling and skin boo. No obvious acute bone destruction. IMPRESSION: 1. Soft tissue swelling and skin boo overlie the operative site. No obvious bone destruction. Report Dictated on --- Final --- Dictating Physician: MD UGALDE JOHN R Signed Date and Time: 06/26/2019 10:34 pm Signed by: MD UGALDE JOHN R Transcribed Date and Time: 06/26/2019 10:35 [facility] [place] Robert, [place] Incoming Radiology Results From [facility] - 06/26/2019 10:36 PM EDT Patient Name: WILL JACINTO ---Diagnostic Radiology--- Exam Date/Time 06/26/2019 22:31:46 EDT Exam CR Femur 2+ Views Right n Ordering Physician KELLEY ELLIOTT TAYLOR Accession Number [id number] CPT4 Codes 57228 () Reason For Exam right AKA wound drainage, swelling, erythema and warmth Report RIGHT FEMUR TWO VIEWS CLINICAL INDICATION: right AKA wound drainage, swelling, erythema and warmth TECHNIQUE: Two views of the right femur. COMPARISON: 06/14/2019 FINDINGS: Status post recent [id number] amputation. Overlying soft tissue swelling and skin boo. No obvious acute bone destruction. IMPRESSION: 1. Soft tissue swelling and skin boo overlie the operative site. No obvious bone destruction. Report Dictated on --- Final --- Dictating Physician: MD UGALDE JOHN R Signed Date and Time: 06/26/2019 10:34 pm Signed by: MD UGALDE JOHN R Transcribed Date and Time: 06/26/2019 10:35 [place] Comprehensive Metabolic Pane l w/ Reflex to MGon 06-20-2019 Albumin [Mass/Vol] 3.4 g/dL Low 3.5 - 5 g/dL [place] ALP [Catalytic activity/Vol] 124 U/L 38 - 126 U/L [place] ALT [Catalytic activity/Vol] 57 U/L 13 - 69 U/L [place] Anion gap [Moles/Vol] 7 mmol/L [place] AST [Catalytic activity/Vol] 62 U/L High 15 - 46 U/L [place] Bilirubin Ql (U) 0.4 mg/dL 0.2 - 1.3 mg/dL [place] Calcium [Mass/Vol] 8.9 mg/dL 8.4 - 10. 4 mg/dL [place] Chloride [Moles/Vol] 105 mmol/L 98 - 10 7 mmol/L [place] CO2 [Moles/Vol] 26 mmol/L 22 - 30 mmol/L [place] Creatinine [Mass/Vol] 1.18 mg/dL 0.52 - 1.25 mg/dL [place] EGFR IF NonAfrican Tajik 48.0 mL/min >60 [place] Comment on above: Source- MDRD equatio n with creatinine calibration to IDMS(NKDEP) eGFR not recommended for drug dose adjustment GFR/1.73 sq M predicted among blacks MDRD (S/P/Bld) [Vol rate/Area] 58.1 mL/min/{1.73_m2} >60 [place] Glucose [Mass/Vol] 85 mg/dL 70 - 100 mg/dL [place] Interpretation and review of laboratory results Abnormal [place] Potassium [Moles/Vol] 4.6 mmol/L 3.5 - 5.1 mmol/L [place] Protein [Mass/Vol] 6.4 g/dL 6.3 - 8.2 g/dL [place] Sodium [Moles/Vol] 139 mmol/L 135 - 145 mmol/L [place], [place] Urea nitrogen [Mass/Vol] 30 mg/dL High 7 - 20 mg/dL [place] Test Performed by [address] [address] [place] Culture, Aerobic Bacteria wi th Gram Staion 06-20-2019 Aerobic Culture Many CARBAPENEMASE GENE DETECTION BY PCR VIM gene DETECTED IMP gene Not Detected NDM gene Not Detected KPC gene Not Detected OXA48 gene Not Detected The targets listed above are genes that may confer resistance to the carbapenems. Methodology: Real-time PCR ([employer]) [place], [place] Aerobic Culture Pseudomonas aeruginosa Abnormal [place] Aerobic Culture Mixed enteric dorinda present. Abnormal [place] INR Coag (Bld) [Relative time] Moderate polymorphonuclear cells/lpf. Moderate gram positive cocci. Moderate gram negative bacilli. [place] Interpretation and review of laboratory results Abnormal [place] Test Performed by [address] [address] [place], [place] POCT Glucoseon 06-20-2019 Glucose [Mass/Vol] 206 mg/dL High 70 - 100 mg/dL [place] Comment on above: Test performed by ucose meter. Results may be 10%-15% lower than serum/plasma values. (CLIA ID [id number]) Interpretation and review of laboratory results Abnormal [place], MARYAM Test Performed by [facility], [address] [place] [address] [facility] [place] Glucose [Mass/Vol] 200 mg/dL High 70 - 100 mg/dL [facility], [place] Comment on above: Test performed by gl ucose meter. Results may be 10%-15% lower than serum/plasma values. (CLIA ID [id number]) Interpretation and review of laboratory results Abnormal [facility]), [place]ARYAM Test Performed by [facility], [address] [place] [address] [facility], [place] Glucose [Mass/Vol] 189 mg/dL High 70 - 100 mg/dL [place] Comment on above: Test performed by gl ucose meter. Results may be 10%-15% lower than serum/plasma values. (CLIA ID [id number]) Interpretation and review of laboratory results Abnormal Mogad, MARYAM Test Performed by [facility], [address] [place] [id number] [place] [address] Surgical Pathologyon 019 Sodium [Moles/Vol] SEE BELOW [facility]- [employer], MARYAM 1 [id number] [facility] DE[facility] PATHOLOGY AND LABORATORY MEDICINE [address] [place] [address] FINAL SURGICAL PATHOLOGY REPORT NAME: DARREN JACINTOArjun Gilliam : 1965 53 Y F BILLING NO.: [id number] LOCATION: [id number] PROCEDURE 06/16/2019 DATE: SURGEON: SERGIO PISANO M.D. RECEIVED 06/17/2019 DATE: ATTENDING: JAYESH JORDAN MD REPORT DATE: 06/20/2019 COPIES TO: DIAGNOSIS: LEG, RIGHT ABOVE THE KNEE AMPUTATION - SKIN WITH ULCERATION AND NECROTIZING ACUTE INFLAMMATION OF SOFT TISSUE OF THE FOOT. 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 MILD CALCIFIC ATHEROSCLEROSIS. KS/KS Signature> ALLEN JERRY M.D. CLINICAL INFORMATION: Not provided SPECIMEN: LEG AMPUTATION, NON-TRAUMATIC GROSS DESCRIPTION: "Right DA SILVA" Received is a right above knee amputation [...] characteristics determined by the clinical laboratories of [facility]. They have not been cleared by [...] negativity on decalcified specimens. Professional Performing Location: [place] [address] [place] [address]. DEPARTMENT OF PATHOLOGY AND LABORATORY MEDICINE [place], [place] [address] [place], [place] Anaerobic Cultureon 06-19-20 19 Anaerobic Culture Many [place], [place] Anaerobic Culture Positive Abnormal [place] Interpretation and review of laboratory results Abnormal [place] Test Performed by [facility], [address] [place], [place] [id number] [place] [address] Comprehensive Metabolic Pane l w/ Reflex to MGon 06-19-2019 Albumin [Mass/Vol] 3.6 g/dL 3.5 - 5 g/dL [place] ALP [Catalytic activity/Vol] 126 U/L 38 - 126 U/L [place] ALT [Catalytic activity/Vol] 54 U/L 13 - 69 U/L [place] Anion gap [Moles/Vol] 10 mmol/L [place], [place] AST [Catalytic activity/Vol] 71 U/L High 15 - 46 U/L [place] Bilirubin Ql (U) 0.6 mg/dL 0.2 - 1.3 mg/dL [place] Calcium [Mass/Vol] 9.0 mg/dL 8.4 - 10. 4 mg/dL [place] Chloride [Moles/Vol] 101 mmol/L 98 - 10 7 mmol/L [place] CO2 [Moles/Vol] 24 mmol/L 22 - 30 mmol/L [place] Creatinine [Mass/Vol] 1.67 mg/dL High 0.52 - 1.25 mg/dL [place] EGFR IF NonAfrican Tajik 32.1 mL/min >60 [place] Comment on above: Source- MDRD equatio n with creatinine calibration to IDAK(NKDEP) eGFR not recommended for drug dose adjustment GFR/1.73 sq M predicted among blacks MDRD (S/P/Bld) [Vol rate/Area] 38.9 mL/min/{1.73_m2} >60 [place] Glucose [Mass/Vol] 180 mg/dL High 70 - 100 mg/dL [place] Interpretation and review of laboratory results Abnormal [place] Potassium [Moles/Vol] 5.7 mmol/L High 3.5 - 5.1 mmol/L [place] Protein [Mass/Vol] 6.8 g/dL 6.3 - 8.2 g/dL [place] Sodium [Moles/Vol] 135 mmol/L 135 - 145 mmol/L [place], [place] Urea nitrogen [Mass/Vol] 33 mg/dL High 7 - 20 mg/dL [place] Test Performed by [facility], [facility] [place] [address] [place], [place] Otheron 06-19-2019 Blood Culture, Routine No growth at 5 days. [place], [place] Test Performed by [facility], [address] [place] [address] Specimen Source Comment:Blood [place], [place] POCT Glucoseon 06-19-2019 Glucose [Mass/Vol] 135 mg/dL High 70 - 100 mg/dL [place] Comment on above: Test performed by gl ucose meter. Results may be 10%-15% lower than serum/plasma values. (CLIA ID [id number]) Interpretation and review of laboratory results Abnormal [place] Test Performed by [facility], [address] [place] [address] [place] Glucose [Mass/Vol] 219 mg/dL High 70 - 100 mg/dL [place] Comment on above: Test performed by gl ucose meter. Results may be 10%-15% lower than serum/plasma values. (CLIA ID [id number]) Interpretation and review of laboratory results Abnormal [place] Test Performed by [facility], [address] [place] [address] [place] Glucose [Mass/Vol] 222 mg/dL High 70 - 100 mg/dL [place] Comment on above: Test performed by ucose meter. Results may be 10%-15% lower than serum/plasma values. (CLIA ID [id number]) Interpretation and review of laboratory results Abnormal [place] Test Performed by [facility], [address] [place] [address] [place] Procalcitoninon 06-19-2019 Interpretation and review of laboratory results Abnormal [place] Procalcitonin 0.32 ng/mL Abnormal <0.10 [place] Sodium [Moles/Vol] See Below [place], [place] Comment on above: PCT <0.50 = Low risk of severe sepsis and/or septic shock. PCT >2.00 = High risk of severe sepsis and/or septic shock. Test Performed by [facility], [address] [place] [address] [place] Comprehensive Metabolic Pane l w/ Reflex to MGon 06-18-2019 Albumin [Mass/Vol] 3.3 g/dL Low 3.5 - 5 g/dL [place], [place] ALP [Catalytic activity/Vol] 94 U/L 38 - 126 U/L [place] ALT [Catalytic activity/Vol] 44 U/L 13 - 69 U/L [place] Anion gap [Moles/Vol] 10 mmol/L [place], [place] AST [Catalytic activity/Vol] 48 U/L High 15 - 46 U/L [place] Bilirubin Ql (U) 0.5 mg/dL 0.2 - 1.3 mg/dL [place] Calcium [Mass/Vol] 8.7 mg/dL 8.4 - 10. 4 mg/dL [place] Chloride [Moles/Vol] 100 mmol/L 98 - 10 7 mmol/L [place] CO2 [Moles/Vol] 26 mmol/L 22 - 30 mmol/L [place] Creatinine [Mass/Vol] 1.53 mg/dL High 0.52 - 1.25 mg/dL [place] EGFR IF NonAfrican Tajik 35.6 mL/min >60 [place] Comment on above: Source- MDRD equatio n with creatinine calibration to IDMS(NKDEP) eGFR not recommended for drug dose adjustment GFR/1.73 sq M predicted among blacks MDRD (S/P/Bld) [Vol rate/Area] 43.1 mL/min/{1.73_m2} >60 [place] Glucose [Mass/Vol] 108 mg/dL High 70 - 100 mg/dL [place] Interpretation and review of laboratory results Abnormal [place] Potassium [Moles/Vol] 4.2 mmol/L 3.5 - 5.1 mmol/L [place] Protein [Mass/Vol] 6.1 g/dL Low 6.3 - 8.2 g/dL [place] Sodium [Moles/Vol] 135 mmol/L 135 - 145 mmol/L [place] Urea nitrogen [Mass/Vol] 29 mg/dL High 7 - 20 mg/dL [place] Test Performed by [facility], [address] [place] [address] [place] POCT Glucoseon 06-18-2019 Glucose [Mass/Vol] 189 mg/dL High 70 - 100 mg/dL [place] Comment on above: Test performed by gl ucose meter. Results may be 10%-15% lower than serum/plasma values. (CLIA ID [id number]) Interpretation and review of laboratory results Abnormal [place] Test Performed by [facility], [facility] [place] [address] [place] Glucose [Mass/Vol] 207 mg/dL High 70 - 100 mg/dL [place] Comment on above: Test performed by gl ucose meter. Results may be 10%-15% lower than serum/plasma values. (CLIA ID [id number]) Interpretation and review of laboratory results Abnormal [facility], MARYAM Test Performed by [facility], [facility] [place] [address] [place] Glucose [Mass/Vol] 206 mg/dL High 70 - 100 mg/dL [place], [place] Comment on above: Test performed by gl ucose meter. Results may be 10%-15% lower than serum/plasma values. (CLIA ID [id number]) Interpretation and review of laboratory results Abnormal [place] Test Performed by [facility], [place] [address] [place] Glucose [Mass/Vol] 156 mg/dL High 70 - 100 mg/dL [place], [place] Comment on above: Test performed by gl ucose meter. Results may be 10%-15% lower than serum/plasma values. (CLIA ID [id number]) Interpretation and review of laboratory results Abnormal [place] Test Performed by [facility], [place] [place] [address] [place], [place] CBCon 06-17-2019 Erythrocyte distribution width (RBC) [Ratio] 22.4 % High 11.5 - 14.5 % [place] Hematocrit (Bld) [Volume fraction] 24.8 % Low 35 - 47 % [place] Hemoglobin (Bld) [Mass/Vol] 7.6 g/dL Low 11.7 - 16 g/dL [place] Interpretation and review of laboratory results Abnormal [place] MCH (RBC) [Entitic mass] 23.3 pg Low 26 - 34 pg [place] MCHC (RBC) [Mass/Vol] 30.7 % Low 32 - 36 % [place] MCV (RBC) [Entitic vol] 76.1 fL Low 79 - 98 fL [place] Platelet mean volume (Bld) [Entitic vol] 7.8 fL 7.4 - 10.4 fL [place] Platelets (Bld) [#/Vol] 403 10*3/uL 140 - 440 10*3/uL [place] RBC (Bld) [#/Vol] 3.26 10*6/uL Low 3.8 - 5.2 10*6/uL [place] WBC (Bld) [#/Vol] 13.3 10*3/uL High 3.6 - 10.7 10*3/uL [place] Test Performed by [facility], [address] [place] [address] [place] Comprehensive Metabolic Pane l w/ Reflex to MGon 06-17-2019 Albumin [Mass/Vol] 3.7 g/dL 3.5 - 5 g/dL [place] ALP [Catalytic activity/Vol] 121 U/L 38 - 126 U/L [place] ALT [Catalytic activity/Vol] 30 U/L 13 - 69 U/L [place] Anion gap [Moles/Vol] 14 mmol/L [place] AST [Catalytic activity/Vol] 34 U/L 15 - 46 U/L [place] Bilirubin Ql (U) 0.7 mg/dL 0.2 - 1.3 mg/dL [place] Calcium [Mass/Vol] 8.5 mg/dL 8.4 - 10. 4 mg/dL [place] Chloride [Moles/Vol] 98 mmol/L 98 - 10 7 mmol/L [place] CO2 [Moles/Vol] 21 mmol/L Low 22 - 30 mmol/L [place] Creatinine [Mass/Vol] 0.94 mg/dL 0.52 - 1.25 mg/dL [place] EGFR IF NonAfrican Tajik >60.0 >60 mL/min [place] Comment on above: Source- MDRD equatio n with creatinine calibration to IDMS(NKDEP) eGFR not recommended for drug dose adjustment GFR/1.73 sq M predicted among blacks MDRD (S/P/Bld) [Vol rate/Area] mL/min/{1.73_m2} >60 mL/min [place] Glucose [Mass/Vol] 399 mg/dL High 70 - 100 mg/dL [place] Comment on above: repeated Interpretation and review of laboratory results Abnormal [place] Potassium [Moles/Vol] 5.3 mmol/L High 3.5 - 5.1 mmol/L [place] Protein [Mass/Vol] 6.6 g/dL 6.3 - 8.2 g/dL [place] Sodium [Moles/Vol] 134 mmol/L Low 135 - 145 mmol/L [place] Urea nitrogen [Mass/Vol] 25 mg/dL High 7 - 20 mg/dL [place] Test Performed by [facility], [facility] [address] [place], [place] [id number] [place] [address] Hematologyon 06-17-2019 ABO and Rh group Nom (Bld) 5100 [place] Metabolic Panelon 06-17-2019 Sodium [Moles/Vol] [id number] [place] Sodium [Moles/Vol] released [place] POCT Glucoseon 06-17-2019 Glucose [Mass/Vol] 305 mg/dL High 70 - 100 mg/dL [place] Comment on above: Test performed by gl ucose meter. Results may be 10%-15% lower than serum/plasma values. (CLIA ID [id number]) Interpretation and review of laboratory results Abnormal [place] Test Performed by [facility], [place] [address] [place] Glucose [Mass/Vol] 373 mg/dL High 70 - 100 mg/dL [place] Comment on above: Test performed by gl ucose meter. Results may be 10%-15% lower than serum/plasma values. (CLIA ID [id number]) Interpretation and review of laboratory results Abnormal [place] Test Performed by [facility], [address] [place] [address] [place] Glucose [Mass/Vol] 477 mg/dL High 70 - 100 mg/dL [place] Comment on above: Test performed by gl ucose meter. Results may be 10%-15% lower than serum/plasma values. (CLIA ID [id number]) Interpretation and review of laboratory results Abnormal [place] Test Performed by [id number] [place] [address] PREPARE RBC (CROSSMATCH)on 0 06-17-2019 Blood product unit ID (Dose) [#] [id number] [place] Blood product unit ID (Dose) [#] [id number] [place] Sodium [Moles/Vol] [id number] mmol/L [place] Sodium [Moles/Vol] [id number] mmol/L [place], [place] Potassiumon 06-17-2019 Interpretation and review of laboratory results Abnormal [place] Potassium [Moles/Vol] 5.4 mmol/L High 3.5 - 5.1 mmol/L [place] Test Performed by [id number] [place] [address] Procalcitoninon 06-17-2019 Interpretation and review of laboratory results Abnormal [place] Procalcitonin 0.11 ng/mL Abnormal <0.10 [place] Sodium [Moles/Vol] See Below [place] Comment on above: PCT <0.50 = Low risk of severe sepsis and/or septic shock. PCT >2.00 = High risk of severe sepsis and/or septic shock. Test Performed by [address] [address] [place] Albuminon 06-16-2019 Albumin [Mass/Vol] 3.9 g/dL 3.5 - 5 g/dL [place] Test Performed by [id number] [place] [address] CBCon 06-16-2019 Erythrocyte distribution width (RBC) [Ratio] 22.9 % High 11.5 - 14.5 % [place] Hematocrit (Bld) [Volume fraction] 28.2 % Low 35 - 47 % [place] Hemoglobin (Bld) [Mass/Vol] 8.8 g/dL Low 11.7 - 16 g/dL [place] Interpretation and review of laboratory results Abnormal [place] MCH (RBC) [Entitic mass] 23.8 pg Low 26 - 34 pg [place] MCHC (RBC) [Mass/Vol] 31.2 % Low 32 - 36 % [place] MCV (RBC) [Entitic vol] 76.0 fL Low 79 - 98 fL [place] Platelet mean volume (Bld) [Entitic vol] 7.7 fL 7.4 - 10.4 fL [place] Platelets (Bld) [#/Vol] 372 10*3/uL 140 - 440 10*3/uL [place] RBC (Bld) [#/Vol] 3.71 10*6/uL Low 3.8 - 5.2 10*6/uL [place] WBC (Bld) [#/Vol] 6.7 10*3/uL 3.6 - 10.7 10*3/uL [place] Test Performed by [facility], [address] [place] [address] [place] Erythrocyte distribution width (RBC) [Ratio] disregard Critically abnormal 11.5 - 14.5 % [place] Comment on above: CORRECTED RESULT...P revious above value was 23.2, verified on 06/16/19 at 04:45 by LRB . Hematocrit (Bld) [Volume fraction] disregard Critically abnormal 35 - 47 % [place] Comment on above: CORRECTED RESULT...P revious above value was 30.2, verified on 06/16/19 at 04:45 by LRB . Hemoglobin (Bld) [Mass/Vol] disregard Critically abnormal 11.7 - 16 g/dL [place] Comment on above: CORRECTED RESULT...P revious above value was 9.3, verified on 06/16/19 at 04:45 by LRB . Interpretation and review of laboratory results Abnormal [place] MCH (RBC) [Entitic mass] disregard Critically abnormal 26 - 34 pg [place] Comment on above: CORRECTED RESULT...P revious above value was 23.4, verified on 06/16/19 at 04:45 by LRB . MCHC (RBC) [Mass/Vol] disregard Critically abnormal 32 - 36 % [place] Comment on above: CORRECTED RESULT...P revious above value was 30.8, verified on 06/16/19 at 04:45 by LRB . MCV (RBC) [Entitic vol] disregard Critical ly abnormal 79 - 98 fL [place], [place] Comment on above: CORRECTED RESULT...P revious above value was 75.8, verified on 06/16/19 at 04:45 by LRB . RBC (Bld) [#/Vol] disregard Critically abnormal 3.8 - 5.2 10*6/uL [place] Comment on above: CORRECTED RESULT...P revious above value was 3.98, verified on 06/16/19 at 04:45 by LRB . WBC (Bld) [#/Vol] disregard Critically abnormal 3.6 - 10.7 10*3/uL [place] Comment on above: CORRECTED RESULT...P revious above value was 3.7, verified on 06/16/19 at 04:45 by LRB . Test Performed by [facility], [address] [place] [address] [place] Comprehensive Metabolic Pane l w/ Reflex to MGon 06-16-2019 Albumin [Mass/Vol] 3.5 g/dL 3.5 - 5 g/dL [place], [place] ALP [Catalytic activity/Vol] 167 U/L High 38 - 126 U/L [place] ALT [Catalytic activity/Vol] 28 U/L 13 - 69 U/L [place] Anion gap [Moles/Vol] 11 mmol/L [place], [place] AST [Catalytic activity/Vol] 29 U/L 15 - 46 U/L [place] Bilirubin Ql (U) 0.7 mg/dL 0.2 - 1.3 mg/dL [place] Calcium [Mass/Vol] 8.6 mg/dL 8.4 - 10. 4 mg/dL [place] Chloride [Moles/Vol] 98 mmol/L 98 - 10 7 mmol/L [place] CO2 [Moles/Vol] 23 mmol/L 22 - 30 mmol/L [place] Creatinine [Mass/Vol] 0.87 mg/dL 0.52 - 1.25 mg/dL [place] EGFR IF NonAfrican Tajik >60.0 >60 mL/min [place], [place] Comment on above: Source- MDRD equatio n with creatinine calibration to IDMS(NKDEP) eGFR not recommended for drug dose adjustment GFR/1.73 sq M predicted among blacks MDRD (S/P/Bld) [Vol rate/Area] mL/min/{1.73_m2} >60 mL/min [place] Glucose [Mass/Vol] 385 mg/dL High 70 - 100 mg/dL [place], [place] Interpretation and review of laboratory results Abnormal [place], [place] Potassium [Moles/Vol] 4.9 mmol/L 3.5 - 5.1 mmol/L [place] Protein [Mass/Vol] 6.5 g/dL 6.3 - 8.2 g/dL [place] Sodium [Moles/Vol] 131 mmol/L Low 135 - 145 mmol/L [place], [place] Urea nitrogen [Mass/Vol] 31 mg/dL High 7 - 20 mg/dL [place] Test Performed by [place] [address] [place] [address] [place], [place] Hemoglobin A1Con 06-16-2019 eAG 240 mg/dL [place], [place] HbA1c (Bld) [Mass fraction] 10.0 % High 4 - 5.7 % [place], [place] Comment on above: --HgbA1C levels may not be accurate in patients who have renal disease, received recent blood transfusions, are anemic, or who have dyshemoglobinemia. Interpretation and review of laboratory results Abnormal [place] Test Performed by [place] [address] [place], [place] [id number] [place] [address]- [place] POCT Glucoseon 06-16-2019 Glucose [Mass/Vol] 386 mg/dL High 70 - 100 mg/dL [facility], [place] Comment on above: Test performed by gl ucose meter. Results may be 10%-15% lower than serum/plasma values. (CLIA ID [id number]) Interpretation and review of laboratory results Abnormal [facility] Test Performed by [facility], [address] [place] [address] [facility] [place] Glucose [Mass/Vol] 287 mg/dL High 70 - 100 mg/dL [facility] [place] Comment on above: Test performed by gl ucose meter. Results may be 10%-15% lower than serum/plasma values. (CLIA ID [id number]) Interpretation and review of laboratory results Abnormal [facility] Test Performed by [facility], [address] [place] [address] [facility], [place] Glucose [Mass/Vol] 285 mg/dL High 70 - 100 mg/dL [facility], [place] Comment on above: Test performed by gl ucose meter. Results may be 10%-15% lower than serum/plasma values. (CLIA ID [id number]) Interpretation and review of laboratory results Abnormal [facility] [place] Test Performed by [facility], [address] [place] [address] [facility], [place] Glucose [Mass/Vol] 431 mg/dL High 70 - 100 mg/dL [facility], [place] Comment on above: Test performed by gl ucose meter. Results may be 10%-15% lower than serum/plasma values. (CLIA ID [id number]) Interpretation and review of laboratory results Abnormal [facility] [place] Test Performed by [facility], [address] [place] [address] [facility] [place] Glucose [Mass/Vol] 431 mg/dL High 70 - 100 mg/dL [facility] Comment on above: Test performed by gl ucose meter. Results may be 10%-15% lower than serum/plasma values. (CLIA ID [id number]) Interpretation and review of laboratory results Abnormal [place] Test Performed by [facility], [address] [place] [address] [place], [place] Vancomycin, Troughon 019 Vancomycin Tr 17.1 ug/mL 15 - 20 ug/mL [place], [place] Comment on above: . Test Performed by [facility], [facility] [place] [address] [place], [place] CBCon 06-15-2019 Erythrocyte distribution width (RBC) [Ratio] 22.9 % High 11.5 - 14.5 % [place] Hematocrit (Bld) [Volume fraction] 27.2 % Low 35 - 47 % [place] Hemoglobin (Bld) [Mass/Vol] 8.8 g/dL Low 11.7 - 16 g/dL [place] Interpretation and review of laboratory results Abnormal [place] MCH (RBC) [Entitic mass] 24.1 pg Low 26 - 34 pg [place] MCHC (RBC) [Mass/Vol] 32.2 % 32 - 36 % [place] MCV (RBC) [Entitic vol] 74.8 fL Low 79 - 98 fL [place], [place] Platelet mean volume (Bld) [Entitic vol] 7.8 fL 7.4 - 10.4 fL [place] Platelets (Bld) [#/Vol] 353 10*3/uL 140 - 440 10*3/uL [place] RBC (Bld) [#/Vol] 3.64 10*6/uL Low 3.8 - 5.2 10*6/uL [place] WBC (Bld) [#/Vol] 6.6 10*3/uL 3.6 - 10.7 10*3/uL [place] Test Performed by [facility], [address] [place], [place] [id number] [place] [address] Comprehensive Metabolic Pane l w/ Reflex to MGon 06-15-2019 Albumin [Mass/Vol] 3.4 g/dL Low 3.5 - 5 g/dL [place] ALP [Catalytic activity/Vol] 168 U/L High 38 - 126 U/L [place] ALT [Catalytic activity/Vol] 27 U/L 13 - 69 U/L [place] Anion gap [Moles/Vol] 10 mmol/L [place] AST [Catalytic activity/Vol] 30 U/L 15 - 46 U/L [place] Bilirubin Ql (U) 0.5 mg/dL 0.2 - 1.3 mg/dL [place] Calcium [Mass/Vol] 8.7 mg/dL 8.4 - 10. 4 mg/dL [place] Chloride [Moles/Vol] 100 mmol/L 98 - 10 7 mmol/L [place] CO2 [Moles/Vol] 25 mmol/L 22 - 30 mmol/L [place] Creatinine [Mass/Vol] 0.86 mg/dL 0.52 - 1.25 mg/dL [place] EGFR IF NonAfrican Tajik >60.0 >60 mL/min [place], [place] Comment on above: Source- MDRD equatio n with creatinine calibration to IDMS(NKDEP) eGFR not recommended for drug dose adjustment GFR/1.73 sq M predicted among blacks MDRD (S/P/Bld) [Vol rate/Area] mL/min/{1.73_m2} >60 mL/min [place] Glucose [Mass/Vol] 281 mg/dL High 70 - 100 mg/dL [place] Interpretation and review of laboratory results Abnormal [place] Potassium [Moles/Vol] 4.7 mmol/L 3.5 - 5.1 mmol/L [place] Protein [Mass/Vol] 6.4 g/dL 6.3 - 8.2 g/dL [place], [place] Sodium [Moles/Vol] 135 mmol/L 135 - 145 mmol/L [place] Urea nitrogen [Mass/Vol] 31 mg/dL High 7 - 20 mg/dL [place] Test Performed by [facility], [address] [place] [address] [place], [place] EKG 12 Leadon 06-15-2019 [facility] Incoming Cardiology Results From [facility] - 06/15/2019 5:33 PM EDT [facility] Test Date: 2019-06-14 Pat Name: Will Jacinto Department: 1A6 Room: 6125 Gender: F 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1965 Requested By: Order Number: [id number] Reading MD: Ezio Schmitt Measurements Intervals [place] Rate: 97 P: 50 KS: 169 QRS: -27 QRSD: 113 T: 50 QT: 363 QTc: 461 Interpretive Statements Sinus rhythm Low voltage, precordial leads Left ventricular hypertrophy ST elev, consider awmi Electronically Signed On 06-15-2019 17:32:44 EDT by [facility] Test Date: 2019-06-14 Pat Name: Will Jacinto Department: 1A6 Room: 6125 Gender: F 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 Results may be 10%-15% lower than serum/plasma values. (CLIA ID [id number]) Interpretation and review of laboratory results Abnormal [place] Test Performed by [facility], [address] [place] [address] [place] Glucose [Mass/Vol] 315 mg/dL High 70 - 100 mg/dL [place], [place] Comment on above: Test performed by gl ucose meter. Results may be 10%-15% lower than serum/plasma values. (CLIA ID [id number]) Interpretation and review of laboratory results Abnormal [facility] Test Performed by [facility], [address] [place] [address] [facility] Glucose [Mass/Vol] 290 mg/dL High 70 - 100 mg/dL [facility] Comment on above: Test performed by gl ucose meter. Results may be 10%-15% lower than serum/plasma values. (CLIA ID [id number]) Interpretation and review of laboratory results Abnormal [facility] Test Performed by [facility], [address] [place] [address] [facility] Glucose [Mass/Vol] 414 mg/dL High 70 - 100 mg/dL [facility] [place] Comment on above: Test performed by gl ucose meter. Results may be 10%-15% lower than serum/plasma values. (CLIA ID [id number]) Interpretation and review of laboratory results Abnormal [facility] Test Performed by [facility], [address] [place] [address] [facility] Glucose [Mass/Vol] 366 mg/dL High 70 - 100 mg/dL [facility] Comment on above: Test performed by gl ucose meter. Results may be 10%-15% lower than serum/plasma values. (CLIA ID [id number]) Interpretation and review of laboratory results Abnormal [facility] Test Performed by [facility], [address] [place] [address] [facility] Glucose [Mass/Vol] 357 mg/dL High 70 - 100 mg/dL [facility] [place] Comment on above: Test performed by gl ucose meter. Results may be 10%-15% lower than serum/plasma values. (CLIA ID [id number]) Interpretation and review of laboratory results Abnormal [facility] Test Performed by [facility], [address] [place] [address] [facility] Add On Lab Teston 06-14-2019 Sodium [Moles/Vol] Accepted [facility] Comment on above: Specimen available & acceptable for analysis. Test Performed by [facility], [address] [place] [address] [place] Basic Metabolic Panelon Anion gap [Moles/Vol] 13 mmol/L [place] Calcium [Mass/Vol] 9.6 mg/dL 8.4 - 10. 4 mg/dL [place] Chloride [Moles/Vol] 96 mmol/L Low 98 - 10 7 mmol/L [place] CO2 [Moles/Vol] 27 mmol/L 22 - 30 mmol/L [place] Creatinine [Mass/Vol] 0.89 mg/dL 0.52 - 1.25 mg/dL [place] EGFR IF NonAfrican Tajik >60.0 >60 mL/min [place] Comment on above: Source- MDRD equatio n with creatinine calibration to IDMS(NKDEP) eGFR not recommended for drug dose adjustment GFR/1.73 sq M predicted among blacks MDRD (S/P/Bld) [Vol rate/Area] mL/min/{1.73_m2} >60 mL/min [place] Glucose [Mass/Vol] 325 mg/dL High 70 - 100 mg/dL [place] Interpretation and review of laboratory results Abnormal [place] Potassium [Moles/Vol] 4.8 mmol/L 3.5 - 5.1 mmol/L [place] Sodium [Moles/Vol] 135 mmol/L 135 - 145 mmol/L [place], [place] Urea nitrogen [Mass/Vol] 30 mg/dL High 7 - 20 mg/dL [place] Beta-Hydroxybutyrateon 06-14 Beta-Hydroxybutyrate 1.24 mg/dL 0.2 - 2 .81 mg/dL [place], [place] C-Reactive Proteinon 019 CRP [Mass/Vol] 30.7 mg/L High 0 - 6 mg/L [place], [place] Comment on above: . Interpretation and review of laboratory results Abnormal [place] Test Performed by [facility], [address] [place] [address] [place] Hemogram (CBC) w/Auto Diffon 06-14-2019 Absolute Baso # 0.0 10*3/uL 0 - 0.2 10*3/uL [place] Absolute Neut # 4.8 10*3/uL 1.8 - 7 10*3/uL [place] Basophils/100 WBC (Bld) 0.5 % 0 - 2 % [place] Eosinophils (Bld) [#/Vol] 0.1 10*3/uL 0 - 0.5 10*3/uL [place] Eosinophils/100 WBC (Bld) 1.1 % 1 - 6 % [place] Erythrocyte distribution width (RBC) [Ratio] 22.6 % High 11.5 - 14.5 % [place] Granulocytes/100 WBC (Bld) 69.0 % 40 - 80 % [place] Hematocrit (Bld) [Volume fraction] 30.2 % Low 35 - 47 % [place] Hemoglobin (Bld) [Mass/Vol] 9.6 g/dL Low 11.7 - 16 g/dL [place], [place] Interpretation and review of laboratory results Abnormal [place] Lymphocytes (Bld) [#/Vol] 1.5 10*3/uL 1 - 4.3 10*3/uL [place] Lymphocytes/100 WBC (Bld) 20.9 % 20 - 40 % [place] MCH (RBC) [Entitic mass] 23.8 pg Low 26 - 34 pg [place] MCHC (RBC) [Mass/Vol] 31.7 % Low 32 - 36 % [place] MCV (RBC) [Entitic vol] 75.1 fL Low 79 - 98 fL [place], [place] Monocytes (Bld) [#/Vol] 0.6 10*3/uL 0 - 0.8 10*3/uL [place], [place] Monocytes/100 WBC (Bld) 8.5 % 2 - 10 % [place] Platelet mean volume (Bld) [Entitic vol] 7.8 fL 7.4 - 10.4 fL [place] Platelets (Bld) [#/Vol] 396 10*3/uL 140 - 440 10*3/uL [place] RBC (Bld) [#/Vol] 4.03 10*6/uL 3.8 - 5.2 10*6/uL [place] WBC (Bld) [#/Vol] 7.0 10*3/uL 3.6 - 10.7 10*3/uL [place] Test Performed by [facility], [facility] [address] Lactic Acid, Plasmaon 2018 Interpretation and review of laboratory results Abnormal [place] Lactate [Moles/Vol] 3.7 mmol/L Critically high 0.7 - 2 mmol/L [place], [place] Comment on above: Repeated Test Performed by [facility], [facility] [address] Otheron 06-14-2019 Test Performed by [facility], [facility] [address] POCT Glucoseon 06-14-2019 Glucose [Mass/Vol] 325 mg/dL High 70 - 100 mg/dL [place] Comment on above: Test performed by ucose meter. Results may be 10%-15% lower than serum/plasma values. (CLIA ID [id number]) Interpretation and review of laboratory results Abnormal [place] Test Performed by [facility], [facility] [address] Procalcitoninon 06-14-2019 Procalcitonin <0.10 <0.10 ng/mL [place] Sodium [Moles/Vol] See Below [place], [place] Comment on above: PCT <0.50 = Low risk of severe sepsis and/or septic shock. PCT >2.00 = High risk of severe sepsis and/or septic shock. Test Performed by [facility], [facility] [address] [place], [place] [id number] [place] [address] Protime-INRon 06-14-2019 INR Coag (PPP) [Relative time] 1.0 {INR} [place], [place] Comment on above: Recommended Anticoag ulant [...] [Time] 10.9 s 9 - 12 s [place], [place] Comment on above: . Test Performed by [facility], [address] [place] [address] Sedimentation Rateon 019 Interpretation and review of laboratory results Abnormal [place], [place] Sed Rate 65 mm/h High 0 - 20 mm/h [place] Test Performed by [facility], [address] [place] [id number] [place] [address] TYPE AND SCREENon 06-14-2019 Sodium [Moles/Vol] O [place] Sodium [Moles/Vol] Positive [place], [place] Comment on above: Test Performed by [facility], [address] [place] [address] Sodium [Moles/Vol] Negative [place] Comment on above: Test Performed by [facility], [address] [place] [address] Test Performed by [facility], [address] [place] [address] XR CHEST 1 VWon 06-14-2019 [facility] Incoming Radiology Results From [facility] - 06/14/2019 8:45 PM EDT Patient Name: WILL JACINTO ---Diagnostic Radiology--- Exam Date/Time 06/14/2019 20:33:50 EDT Exam CR Chest 1 View Frontal Ordering Physician [id number] -SCOOTER DEAL Accession Number [id number] CPT4 Codes 68574 () Reason For Exam preop Report Portable [...] RISA Transcribed Date and Time: 06/14/2019 8:44 [place] Patient Name: WILL ALVARADO ---Diagnostic Radiology--- Exam Date/Time 06/14/2019 20:33:50 EDT Exam CR Chest 1 View Frontal Ordering Physician [id number] GAUTAM Accession Number [id number] CPT4 Codes 81347 () Reason For Exam preop Report Portable [...] RISA Transcribed Date and Time: 06/14/2019 8:44 [place] XR FEMUR RIGHT (MIN 2 VIEWS) on 06-14-2019 [facility] Incoming Radiology Results From [facility] - 06/14/2019 11:58 PM EDT Patient Name: WILL JACINTO ---Diagnostic Radiology--- Exam Date/Time 06/14/2019 23:38:07 EDT Exam CR Femur 2+ Views Right n Ordering Physician [id number] MCDOWELL Accession Number [id number] CPT4 Codes 98645 () Reason For Exam pain Report CLINICAL [...] acute osseous findings. Report Dictated on Workstation: [employer] --- Final --- Dictated: 06/14/2019 11:55 pm Dictating Physician: MD OVALLES JEFFREY Signed Date and Time: 06/14/2019 11:57 pm Signed by: MD OVALLES JEFFREY Transcribed Date and Time: 06/14/2019 11:55 [place] Patient Name: WILL ALVARADO ---Diagnostic Radiology--- Exam Date/Time 06/14/2019 23:38:07 EDT Exam CR Femur 2+ Views Right n Ordering Physician SCOOTER MCCOLLUM Accession Number [id number] CPT4 Codes 87125 () Reason For Exam pain Report CLINICAL [...] No acute osseous findings. Report Dictated on --- Final --- Dictated: 06/14/2019 11:55 pm Dictating Physician: MD OVALLES JEFFREY Signed Date and Time: 06/14/2019 11:57 pm Signed by: MD OVALLES JEFFREY Transcribed Date and Time: 06/14/2019 11:55 [facility], [place] XR FOOT RIGHT (MIN 3 VIEWS)o n 06-14-2019 Patient Name: WILL ALVARADO ---Diagnostic Radiology--- Exam Date/Time 06/14/2019 16:26:30 EDT Exam CR Foot Complete 3+ Views Right Ordering Physician MD ANGEL, RENE Fontaine Accession Number [id number] CPT4 Codes 07151 () Reason For Exam R foot xray [...] J Transcribed Date and Time: 06/14/2019 4:40 [facility], [place] [facility] Incoming Radiology Results From [facility] - 06/14/2019 4:52 PM EDT Patient Name: WILL JACINTO ---Diagnostic Radiology--- Exam Date/Time 06/14/2019 16:26:30 EDT Exam CR Foot Complete 3+ Views Right Ordering Physician MD ANGEL, RENE Fontaine Accession Number [id number] CPT4 Codes 87730 () Reason For Exam R foot xray [...] J Transcribed Date and Time: 06/14/2019 4:40 [facility]- [facility] Jonatan 01-03-2019 CNOV Office Visit (PLWDMR ) -------- WILL JACINTO ([id number]) 1965 M Date Time Provider Department 01/03/19 [...] put on Avycaz. Prescription orders written on penitentiary paperwork Discussed with patient in detail Modify [...] capsules by mouth every 6 hours. Acidophilus-Pectin, Elbert 25 million cell -100 mg tab Take [...] reviewed Imaging data: reviewed Jayson Hawthorne MD [phone] 01/03/2019 2:22 PM Roselia Sandoval, RN, RN [...] lower leg Continue current wound care from [place] Comp[place]: ? Cast cover may be purchased [...] following changes to the Wound Center at [phone] or go to the Emergency Department: ? [...] CULTURE AND GRAM STAIN [SQWCUL] Order #: [id number]. #:[id number] WOUND CULTURE AND GRAM STAIN [SQWCUL] Order #: [id number]. #:[id number] Prescriptions as of 01/03/2019 Sig: DOXYCYCLINE MONOHYDRATE [...] lower leg Continue current wound care from [place] [facility]: ? Cast cover may be purchased [...] following changes to the Wound Center at [phone] or go to the Emergency Department: ? [...] Notes: >> Roselia (Rn) PASTORA Sandoval chris Jan 03, 2019 2:23 PM Status: [...] Encounter Status:Closed by DEBBIE CASEY on 01/04/19 [facility] PROGRESSon 01-03-2019 Protein mass conc HNO ID: [id number] Author: Jayson Hawthorne MD Service: (none) Author [...] put on Avycaz. Prescription orders written on penitentiary paperwork Discussed with patient in detail Modify [...] capsules by mouth every 6 hours. Acidophilus-Pectin, Elbert 25 million cell -100 mg tab Take [...] reviewed Imaging data: reviewed Jayson Hawthorne MD [phone] 01/03/2019 2:22 PM [facility] Wound Culture/Stainon 2018 Wound Culture/Stain Sp. [...] F Ertapenem SUSCEPTIBLE <=0.5 F Critically abnormal [facility] Comment on above: Performed By: #### W CUL ####[place] [id number] [place], [place] [phone] Wound Culture/Stain Sp. Request/Comment: - Eswab Smear [...] on --> ABNORMAL ALERT 01/03/2019 AT 1500 ([id number]) --> ABNORMAL ALERT Many --> ABNORMAL ALERT Providencia stuartii --> ABNORMAL ALERT Refer to specimen collected on --> ABNORMAL ALERT 01/03/2019 AT 1500 ([id number]) --> ABNORMAL ALERT Many --> ABNORMAL ALERT Enterococcus faecalis --> ABNORMAL ALERT Cephalosporins, clindamycin, and TMP-SMX are not effective for the treatment of enterococcal infections. --> ABNORMAL ALERT Rare skin dorinda ORGANISM: Enterococcus faecalis METHOD: Minimum inhibitory concentration(Vitek) Antibiotic Interp TULIO Status Ampicillin SUSCEPTIBLE <=2 F Vancomycin SUSCEPTIBLE 1 F Critically [facility] Comment on above: Performed By: #### W CUL ####[facility] [place], [place] [phone] CNOVon 12-27-2018 CNOV Office Visit (PLWDMR ) -------- WILL JACINTO ([id number]) 1965 M Date Time Provider Department 12/27/18 1:50 PM [facility] During your visit today, we recorded the [...] doing debridement periodically. He was admitted to [facility] both in September as well as October 2018. He is not currently on any antibiotics. MEDICATIONS: ARIPiprazole (ABILIFY) 10 mg tablet Take 10 mg by mouth once daily. acetaminophen 325 mg cap Take 2 capsules by mouth every 6 hours. Acidophilus-Pectin, Elbert 25 million cell -100 mg tab Take [...] reviewed Imaging data: reviewed Jayson Hawthorne MD [phone] 12/27/2018 2:07 PM Debbie Casey RN, RN [...] toes to 1' below the knee. 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 [...] the wound center. Referring Provider: KYLAH LUU [[id number]] Allergies As of Date: 12/27/2018 (No Known Allergies) Date Reviewed: 12/27/2018 Reviewed by: Priscila Cantu) ZINA Vazquez - Fully Assessed Reason for Visit: Wound Check [133] Cmt: right leg Primary Visit Diagnosis:Chronic osteomyelitis with draining sinus, right ankle and foot ([facility]) [M86.471] Other Visit Diagnoses:Lymphedema [I89.0] Pseudomonas aeruginosa infection [A49.8] Type 2 diabetes mellitus with diabetic peripheral angiopathy without gangrene, unspecified whether nursing home insulin use ([facility]) [E11.51] Order(s):WOUND CULTURE AND GRAM STAIN [SQWCUL] Order #: [id number] doxycycline monohydrate (MONODOX) 100 mg capsuleTake 1 [...] CAPSULE Take 20 mg by mouth once rhdoa* INSULIN LISPRO (U-100) 100 UN* Inject 100 [...] dressing twice daily Apply a size G tubi-residential appliance repair technician from behind the toes to 1" below [...] following changes to the Wound Center at [phone] or go to the Emergency Department: ? [...] Visit Notes: >> Debbie Farmer) PASTORA Casey Dec 27, 2018 2:09 PM Status: Signed [...] toes to 1' below the knee. 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 >> Debbie Farmer) PASTORA Casey chris Dec 27, 2018 3:59 PM Status: [...] Encounter Status:Closed by DEBBIE CASEY on 12/27/18 [facility] PROGRESSon 12-27-2018 Protein mass conc HNO ID: [id number] Author: Jayson Hawthorne MD Service: (none) Author [...] doing debridement periodically. He was admitted to [facility] both in September as well as October 2018. He is not currently on any antibiotics. MEDICATIONS: ARIPiprazole (ABILIFY) 10 mg tablet Take 10 mg by mouth once daily. acetaminophen 325 mg cap Take 2 capsules by mouth every 6 hours. Acidophilus-Pectin, Elbert 25 million cell -100 mg tab Take [...] reviewed Imaging data: reviewed Jayson Hawthorne MD [phone] 12/27/2018 2:07 PM [facility] 07-12-2018 CN Office Visit (PLWDMR ) -------- TABWILL JOHNSON ([id number]) 1965 M Date Time Provider Department 07/12/18 [...] capsules by mouth every 6 hours. Acidophilus-Pectin, Elbert 25 million cell -100 mg tab Take [...] reviewed Imaging data: reviewed Jayson Hawthorne MD [phone] 07/12/2018 2:03 PM Priscila Vazquez MA, MA [...] and kerlix. Size G Tubigrip applied. MARY WRAP/Tubi-residential appliance repair technician: Foot is warm and pink before and [...] following changes to the Wound Center at [phone] or go to the Emergency Department: ? 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 Fever or chills ? Increased drainage ? Green or yellow drainage ? Foul odor ? Increased pain ? Hardness around the wound ? Redness, warmth or swelling of the surrounding tissue ? Color change to the wound PLAN: Return to the wound center in [address] Glenn Hawthorne MD/[facility] Visit Notes: >> Priscila (Zina) ZINA Vazquez [...] and kerlix. Size G Tubigrip applied. MARY WRAP/Tubi-residential appliance repair technician: Foot is warm and pink before and [...] Status:Closed by JAYSON HAWTHORNE MD on 07/15/18 [facility] PROGRESSon 07-12-2018 Protein mass conc HNO ID: [id number] Author: Jayson Hawthorne MD Service: (none) Author [...] capsules by mouth every 6 hours. Acidophilus-Pectin, Elbert 25 million cell -100 mg tab Take [...] reviewed Imaging data: reviewed Jayson Hawthorne MD [phone] 07/12/2018 2:03 PM [facility] CN[facility] Office Visit (PLWDMR ) -------- OPHELIAWILL Gilliam ([id number]) 1965 M Date Time Provider Department 06/28/18 [...] capsules by mouth every 6 hours. Acidophilus-Pectin, Elbert 25 million cell -100 mg tab Take [...] 2:38 PM Signed WOUND CARE INSTRUCTIONS Will M Ophelia Wound location: Right lateral foot and [...] following changes to the Wound Center at [phone] or go to the Emergency Department: ? [...] following changes to the Wound Center at [phone] or go to the Emergency Department: ? [...] Status:Closed by TERRIE KWAN MD on 06/30/18 [facility] PROGRESSon 06-28-2018 Protein mass conc HNO ID: [id number] Author: Terrie Kwan Service: (none) Author Type: [...] capsules by mouth every 6 hours. Acidophilus-Pectin, Elbert 25 million cell -100 mg tab Take [...] Imaging data: reviewed Terrie Kwan MD Pager: [facility] 06-14-2018 [facility] Office Visit (PLWDMR ) -------- OPHELIAWILL ([id number]) 1965 M Date Time Provider Department 06/14/18 [...] PICC line to be removed by the penitentiary Continue compression for edema and lymphedema management Continue aggressive wound care [facility] and will go home [...] reviewed Imaging data: reviewed Jayson Hawthorne MD [phone] 06/14/2018 1:56 PM Debbie Casey RN, RN [...] weeks PICC is to be removed per penitentiary EDUCATION: The patient/family was instructed how to [...] following changes to the Wound Center at [phone] or go to the Emergency Department: ? Fever or chills ? Increased drainage ? Green or yellow drainage ? Foul odor ? Increased pain ? Hardness around the wound ? Redness, warmth or swelling of the surrounding tissue ? Color change to the wound PLAN: Return to the wound center to see ID in 2 weeks PICC is to be removed per penitentiary Dr. Marine DUMONT/didil Referring Provider: JAYSON HAWTHORNE [[id number]] Allergies As of Date: 06/14/2018 (No Known Allergies) Date Reviewed: Never Reviewed Reason for Visit: Wound Evaluation [1021] Cmt: right 5th metatarsal Primary Visit Diagnosis:Chronic osteomyelitis with draining sinus, right ankle and foot ([facility]) [M86.471] Other Visit Diagnoses:Lymphedema [I89.0] Pseudomonas aeruginosa infection [A49.8] Type 2 diabetes mellitus with diabetic peripheral angiopathy without gangrene, unspecified whether nursing home insulin use ([facility]) [E11.51] Prescriptions as of [...] following changes to the Wound Center at [phone] or go to the Emergency Department: ? Fever or chills ? Increased drainage ? Green or yellow drainage ? Foul odor ? Increased pain ? Hardness around the wound ? Redness, warmth or swelling of the surrounding tissue ? Color change to the wound PLAN: Return to the wound center to see ID in 2 weeks PICC is to be removed per penitentiary Dr. Marine DUMONT/mjl Visit Notes: >> Debbie [...] weeks PICC is to be removed per penitentiary EDUCATION: The patient/family was instructed how to [...] Encounter Status:Closed by LURDES CARMONA on 06/16/18 [facility] PROGRESSon 06-14-2018 Protein mass conc HNO ID: [id number] Author: Jayson Hawthorne MD Service: (none) Author Type: Physician Type: Progress Notes Filed: 06/16/2018 11:23 AM Note Text: INFECTIOUS DISEASE WOUND CENTER NOTE Patient Name: Will Jacinto Date: 06/14/2018 ASSESSMENT: R 5th toe OM PsAG and diphtheroids infection Leg lymphedema Obesity DM2 PLAN: Stop meropenem She has completed 6 weeks of treatment PICC line to be removed by the penitentiary Continue compression for edema and lymphedema management Continue aggressive wound care He is at a penitentiary for wound healing and will go home [...] reviewed Imaging data: reviewed Jayson Hawthorne MD [phone] 06/14/2018 1:56 PM [facility] Culture Anaerobeon 8 Culture Anaerobe Specimen Comments: RIGHT FIFTH METATARSALCulture Observations: No anaerobes isolatedSusceptibility Data: --- [facility] Comment on above: Order Comment: CONTR AST PER RADIOLOGIST DISCRETION. R/o abscess, OM Performed By: #### C XANAER ####[facility] [place], [place] [address] Culture Wound Aerobic w/ Gra m Bobby 05-04-2018 Culture Wound Aerobic w/ Gram St Specimen Comments: RIGHT FIFTH METATARSALCulture Exam: ---------1. Corynebacterium striatum Small numbers ofSusceptibility Data: --- [facility] Comment on above: Order Comment: CONTR AST PER RADIOLOGIST DISCRETION. R/o abscess, OM Result Comment: [facility] eptibility testing not routinely performed on this isolate. Performed By: #### C XWND ####[facility] [place] [address] Surgical Pathology Depar tmenton 05-04-2018 [facility] Surgical Pathology Department Name WILL JACINTO Pathologist: EVELYNE NUNEZate of Procedure: 05/04/2018Date Received: 05/04/2018Date Reported 05/12/2018Submitting Physician: IWONA NEWSOMEocation: APMISC Copy To/Referring/Attending:Gina GARNER MD Other External # [id number] FINAL DIAGNOSISFIFTH METATARSAL, RIGHT, AMPUTATION: --MARROW WITH CHRONIC OSTEOMYELITIS AND FOCAL HEMATOPOIESIS--BONE AND CARTILAGE WITH DEGENERATIVE CHANGES Electronically Signed Out By VIRGIL JIMENEZ MD/Johnnie the signature on this report, the individual or group listed as making theFinal Interpretation/Diagnosis certifies that they have reviewed this case. Clinical History:Osteomyelitits 5th metatarsal right footSpecimens Submitted As:A: RIGHT FIFTH METATARSAL Other Case Numbers [id number] Description:A. Received in formalin, labeled with the patient's name and hospital numberand right fifth metatarsal is a single fragment of bone measuring 4.3 x 3.1 x2.2 cm. Nursery School Attendant sections of the specimen are submitted followingdecalcification .HXRhxr/05/06/2018 Normal [facility] Comment on above: Performed By: #### U HCS ####[facility] Surgical Pathology [id number] [place] [address] Ferritinon 04-30-2018 Ferritin 138 ng/mL Normal 8-252 [facility] Comment on above: Performed By: #### B 12, ANATN ####[place] [address] Iron with TIBCon 04-30-2018 % Saturation 19 % Normal 16-46 [facility] Comment on above: Performed By: #### I RONIBC ####[address] [address] Iron 43 ug/dL Low 50-170 [facility] Comment on above: Performed By: #### I RONIBC ####[address] [address] TIBC 222 ug/dL Low 250-450 [facility] Comment on above: Performed By: #### I RONIBC ####[place] [id number] Occult Blood Stool 1-3on Occult Blood Normal NEGATIVE [facility] Comment on above: Order Comment: CONTR AST PER RADIOLOGIST DISCRETION. R/o abscess, OM Performed By: #### O CBLDST ####[place] [address] Occult Blood Negative Normal NEGATIVE [facility] Comment on above: Order Comment: CONTR AST PER RADIOLOGIST DISCRETION. R/o abscess, OM Performed By: #### O CBLDST ####[address], [place] [address] Vitamin B12on 04-30-2018 Cobalamins (Vitamin B12) 365.0 pg/mL Normal 193.0-986.0 [facility] Comment on above: Performed By: #### B DRE Garcia ####Nati [facility] [place] [address] MRI Low Ext RT Non-JT w/wo c ontraston 04-29-2018 MRI Low Ext RT Non-JT w/wo contrast Examination:MRI right footClinical Indication:Pain, swelling and drainage, multiple ulcersComparison:NoneFin dings:Multiplanar multisequence high field strength MRI images were obtained throughthe right foot prior to and after 15 mL Gadavist intravenous gadolinium.Examination is moderately limited by motion artifact and slightly mtfsuxoxwebhlrho-pf-ggnb e. Unable to utilize the dedicated foot [...] of the fifth metatarsal.Report Dictated on Workstation: [id number] ed by: Shayy Gregory: 04/29/2018 14:18Read by: EVELYNE RAYate: 04/29/2018 14:18 [facility] Comment on above: Order Comment: [...] assess given therecent surgeryReport Dictated on Workstation: [id number] by: Garima Love: 04/28/2018 17:30Read by: EVELYNE PATELate: 04/28/2018 17:30 [facility] Culture Anaerobeon 8 Culture Anaerobe Culture Observations: No anaerobes isolatedSusceptibility Data: --- [facility] Comment on above: Performed By: #### C HARLAN ####Nati [facility], [place] [address] Culture Wound Aerobic w/ Gra m Bobby 03-18-2018 Culture Wound Aerobic w/ Gram St Specimen Comments: BoneCulture Observations: Rare colonies of normal skin dorinda (diphtheroids)Direct Exam: ---------No WBCs seenNo organisms seenSusceptibility Data: --- [facility] Comment on above: Order Comment: TULIO p erformed at additional charge whenindicated Performed By: #### C XWND ####[facility] [place] [address] Surgical Pathology Depar tmenton 03-18-2018 [facility] Surgical Pathology Department Name WILL JACINTO Pathologist: VIRGIL JIMENEZ, MDDate of Procedure: 03/18/2018Date Received: 03/18/2018Date Reported 03/29/2018Submitting Physician: IWONA NEWSOMEocation: APMISC Copy To/Referring/Attending:Gina GARNER MD Other External # [id number] FINAL DIAGNOSISBONE, RIGHT FOOT, EXCISION: --CHRONIC OSTEOMYELITIS Electronically Signed Out By VIRGIL JIMENEZ MD/Johnnie the signature on this report, the individual or group listed as making theFinal Interpretation/Diagnosis certifies that they have reviewed this case. Clinical History:OsteomylitisSpec imens Submitted As:A: BONE RIGHT FOOT Other Case Numbers [id number] Description:Received in formalin, labeled with the patient's name and hospital number and"bone right foot", is a bone measuring 2.7 x 0.7 x 0.7 cm. Representativesections are submitted in 2 cassettes following decalcification.DJOSumma ry of Cassettes:Specimen Label SiteA 1 resection margin 2 representativedjo/03/21/ 018 Normal [facility] Comment on above: Performed By: #### U HCS ####[facility] Surgical Pathology [id number] [place] [address] XR Chest Mobile 1 viewon XR Chest [...] mildcongestive heart failure/fluid overload.Report Dictated on Workstation: [id number] ated by: Nay Ovalles: 03/18/2018 14:29Read by: Sofia GERENE: 03/18/2018 14:29 Normal [facility] Iron with TIBCon 03-16-2018 % Saturation 25 % Normal 16-46 [facility] Comment on above: Performed By: #### I RONIBC ####[place] [id number] Iron 65 ug/dL Normal 50-170 [facility] Comment on above: Performed By: #### I RONIBC ####[place] [id number] TIBC 258 ug/dL Normal 250-450 [facility] Comment on above: Performed By: #### I RONIBC ####[address] [address] MRI Low Ext RT Non-Jt wo con [...] 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.Report Dictated on Workstation: [id number] ated by: Alonzo GregoryOn: 03/16/2018 10:41Read by: Sofia RAY: 03/16/2018 10:41 Normal [facility] Comment on above: Order Comment: CONTR AST PER RADIOLOGIST DISCRETION Occult Blood Stool 1-3on Occult Blood Normal NEGATIVE [facility] Comment on above: Order Comment: x1 Performed By: #### O CBLDST ####[place] [address] Occult Blood Negative Normal NEGATIVE [facility] Comment on above: Order Comment: x1 Performed By: #### O CBLDST ####[place] [id number] [place], [place] [id number] XR Foot Right complete 3 plu s [...] soft tissue gas collection.Report Dictated on Workstation: [id number] laura by: Nay Muniz: 03/15/2018 23:44Read by: Sofia SEGURA: 03/15/2018 23:44 [facility] Comment on above: Order Comment: R/o O M Culture Anaerobeon 8 Culture Anaerobe Specimen Comments: RIGHT FOOT SOFT TISSCulture Exam: ---------1. anaerobic gram positive cocci Small numbers ofSusceptibility Data: --- [facility] Comment on above: Order Comment: AEROB IC/ANAEROBIC CULTURES OF RIGHT FOOT SOFT TISS Result Comment: (TULIO s not performed on anaerobes) Performed By: #### C HARLAN ####Nati [facility], [place] [address] Culture Wound Aerobic w/ Gra m Ston 02-04-2018 Culture Wound Aerobic w/ Gram St Specimen Comments: RIGHT FOOT SOFT TISSCulture Observations: Small numbers of mixed enteric dorinda and mixed skin dorinda- more than 3 organisms with none predominant.No Staphylococcus aureus, Pseudomonas aeruginosa or beta Streptococcus isolatedDirect Exam: ---------No WBCs seenNo organisms seenSusceptibility Data: --- [facility] Comment on above: Order Comment: AEROB IC/ANAEROBIC CULTURES OF RIGHT FOOT SOFT TISS Performed By: #### C XWND ####[facility] [place] [address] MRI Low Ext RT Non-JT w/wo c cox monett 02-02-2018 MRI Low Ext RT Non-JT w/wo [...] clinical concern of osteomyelitis.Report Dictated on Workstation: [id number] ated by: Irma Barragan: 02/03/2018 12:13Read by: IFTIKHAR BARRAGAN, EVELYNEate: 02/03/2018 12:13 [facility] Comment on above: Order Comment: [...] d soft tissue swelling.Report Dictated on Workstation: [id number] ated by: Nay Muniz: 02/02/2018 15:32Read by: Sofia SEGURA: 02/02/2018 15:32 [facility] Comment on above: Order Comment: R/o O M Vital Signs Date Time Vital Sign Value Performing Clinician Facility 07-11-2025 00:48-0400 Diastolic blood pressure 86 mm[Hg] Hermes Issa MD Work Phone: [facility] 07-11-2025 00:48-0400 Heart rate 72 /min Hermes Issa MD Work Phone: [facility] 07-11-2025 00:48-0400 Respiratory rate 18 /min Hermes Issa MD Work Phone: [facility] 07-11-2025 00:48-0400 SaO2% (BldA) [Mass fraction] 93 % Hermes Issa MD Work Phone: [facility] 07-11-2025 00:48-0400 Systolic blood pressure 147 mm[Hg] Hermes Issa MD Work Phone: [facility] 07-10-2025 15:56-0400 Body height 167.6 cm Hermes Issa MD Work Phone: [facility] 07-10-2025 15:56-0400 Body mass index (BMI) [Ratio] 53.42 kg/m2 Hermes Issa MD Work Phone: [facility] 07-10-2025 15:56-0400 Body temperature 98.4 [degF] Hermes Issa MD Work Phone: [facility] 07-10-2025 15:56-0400 Body weight 150.14 kg Hermes Issa MD Work Phone: [facility] 06-07-2025 13:25-0400 Diastolic blood pressure 71 mm[Hg] Farhad Chang MD Work Phone: [facility] 06-07-2025 13:25-0400 Heart rate 77 /min Farhad Chang MD Work Phone: [facility] 06-07-2025 13:25-0400 Respiratory rate 18 /min Farhad Chang MD Work Phone: [facility] 06-07-2025 13:25-0400 SaO2% (BldA) [Mass fraction] 95 % Farhad Chang MD Work Phone: [facility] 06-07-2025 13:25-0400 Systolic blood pressure 143 mm[Hg] Farhad Chang MD Work Phone: [facility] 06-07-2025 11:35-0400 Body temperature 97 [degF] Farhad Chang MD Work Phone: [facility] [employer] 04-06-2025 08:50-0400 Body height 167.6 cm Gunner Stall PA-C Work Phone: [facility] [employer] 04-06-2025 08:50-0400 Body mass index (BMI) [Ratio] 48.1 kg/m2 Gunner Stall PA-C Work Phone: [facility] [employer] 04-06-2025 08:50-0400 Body weight 135.17 kg Gunner Stall PA-C Work Phone: [facility] [employer] 04-06-2025 08:50-0400 Diastolic blood pressure 72 mm[Hg] Gunner Stall PA-C Work Phone: [facility] [employer] 04-06-2025 08:50-0400 Heart rate 86 /min Gunner Stall PA-C Work Phone: [facility] [employer] 04-06-2025 08:50-0400 Systolic blood pressure 114 mm[Hg] Gunner Stall PA-C Work Phone: [facility] [employer] 02-01-2025 09:50-0400 Body height 167.6 cm [employer] COMMUNITY SPORTS COORDINATOR - [employer] Work Phone: [facility] [employer] 02-01-2025 09:50-0400 Body mass index (BMI) [Ratio] 48.1 kg/m2 [employer] COMMUNITY SPORTS COORDINATOR - [employer] Work Phone: [facility] 02-01-2025 09:50-0400 Body temperature 97 [degF] Alejandro Mandel COMMUNITY SPORTS COORDINATOR - [employer] Work Phone: [employer] 02-01-2025 09:50-0400 Body weight 135.17 kg [employer] COMMUNITY SPORTS COORDINATOR - [employer] Work Phone: [facility] [employer] 02-01-2025 09:50-0400 Diastolic blood pressure 82 mm[Hg] Alejandro Mandel COMMUNITY SPORTS COORDINATOR - [employer] Work Phone: [facility] [employer] 02-01-2025 09:50-0400 Heart rate 76 /min Alejandro Mandel COMMUNITY SPORTS COORDINATOR - [employer] Work Phone: [facility] [employer] 02-01-2025 09:50-0400 Respiratory rate 18 /min Alejandro Mandel COMMUNITY SPORTS COORDINATOR - [employer] Work Phone: [facility] [employer] 02-01-2025 09:50-0400 SaO2% (BldA) [Mass fraction] 97 % Alejandro Mandel COMMUNITY SPORTS COORDINATOR - [employer] Work Phone: [facility] [employer] 02-01-2025 09:50-0400 Systolic blood pressure 124 mm[Hg] Alejandro Mandel COMMUNITY SPORTS COORDINATOR - [employer] Work Phone: [facility] [employer] 01-01-2025 11:26-0500 Body height 167.6 cm Margoheavenly Guerrero COMMUNITY SPORTS COORDINATOR - [employer] Work Phone: [facility] [employer] 01-01-2025 11:26-0500 Body mass index (BMI) [Ratio] 48.1 kg/m2 Margoheavenly Guerrero COMMUNITY SPORTS COORDINATOR - [employer] Work Phone: [facility] [employer] 01-01-2025 11:26-0500 Body weight 135.17 kg Margo Guerrero COMMUNITY SPORTS COORDINATOR - [employer] Work Phone: [facility] [employer] 01-01-2025 11:26-0500 Diastolic blood pressure 62 mm[Hg] Margoheavenly Guerrero COMMUNITY SPORTS COORDINATOR - [employer] Work Phone: [facility] [employer] 01-01-2025 11:26-0500 Heart rate 72 /min Margoheavenly Guerrero COMMUNITY SPORTS COORDINATOR - [employer] Work Phone: [facility] [employer] 01-01-2025 11:26-0500 Systolic blood pressure 128 mm[Hg] Margoheavenly Guerrero COMMUNITY SPORTS COORDINATOR - [employer] Work Phone: [facility] [employer] 12-21-2024 08:04-0500 Body height 167.6 cm Wanda Johnson COMMUNITY SPORTS COORDINATOR - [employer] Work Phone: [facility] [employer] 12-21-2024 08:04-0500 Body mass index (BMI) [Ratio] 51.65 kg/m2 Wanda Johnson COMMUNITY SPORTS COORDINATOR - [employer] Work Phone: [facility] [employer] 12-21-2024 08:04-0500 Body weight 145.15 kg Wanda Johnson COMMUNITY SPORTS COORDINATOR - [employer] Work Phone: [facility] [employer] 12-21-2024 08:04-0500 Diastolic blood pressure 69 mm[Hg] Wanda Johnson COMMUNITY SPORTS COORDINATOR - [employer] Work Phone: [facility] [employer] 12-21-2024 08:04-0500 Heart rate 78 /min Wanda Johnson COMMUNITY SPORTS COORDINATOR - [employer] Work Phone: [facility] [employer] 12-21-2024 08:04-0500 Systolic blood pressure 137 mm[Hg] Wanda Johnson COMMUNITY SPORTS COORDINATOR - [employer] Work Phone: [facility] [employer] 12-07-2024 12:53-0500 Body temperature 97.59 [degF] Lilo Rizo MD Work Phone: [facility] [employer] 12-07-2024 12:53-0500 Diastolic blood pressure 80 mm[Hg] Lilo Rizo MD Work Phone: [facility] [employer] 12-07-2024 12:53-0500 Heart rate 82 /min Lilo Rizo MD Work Phone: [facility] [employer] 12-07-2024 12:53-0500 Systolic blood pressure 139 mm[Hg] Lilo Rizo MD Work Phone: [facility] [employer] 11-14-2024 10:09-0500 Body height 167.6 cm Asuncion Black COMMUNITY SPORTS COORDINATOR - [employer] Work Phone: [facility] [employer] 11-14-2024 10:09-0500 Body temperature 97.2 [degF] Asuncion Valencia COMMUNITY SPORTS COORDINATOR - [employer] Work Phone: [facility] [employer] 11-14-2024 10:09-0500 Diastolic blood pressure 79 mm[Hg] Asuncion Black COMMUNITY SPORTS COORDINATOR - CITY [employer] Work Phone: [employer] 11-14-2024 10:09-0500 Heart rate 83 /min Asuncion Valencia COMMUNITY SPORTS COORDINATOR - CITY [employer] Work Phone: [employer] 11-14-2024 10:09-0500 Systolic blood pressure 140 mm[Hg] Asuncion Valencia COMMUNITY SPORTS COORDINATOR - [employer] Work Phone: [employer] 11-12-2024 22:42-0500 Body temperature 98.6 [degF] Virgil Escobar MD Work Phone: [employer] 11-12-2024 22:42-0500 Diastolic blood pressure 68 mm[Hg] Virgil Escobar MD Work Phone: [employer] 11-12-2024 22:42-0500 Heart rate 86 /min Virgil Escobar MD Work Phone: [employer] 11-12-2024 22:42-0500 Respiratory rate 16 /min Virgil Escobar MD Work Phone: [employer] 11-12-2024 22:42-0500 SaO2% (BldA) [Mass fraction] 96 % Virgil Escobar MD Work Phone: [employer] 11-12-2024 22:42-0500 Systolic blood pressure 144 mm[Hg] Virgil Escobar MD Work Phone: [employer] 11-10-2024 11:07-0500 Body height 167.6 cm Asuncion Valencia COMMUNITY SPORTS COORDINATOR - CITY [employer] Work Phone: [employer] 11-10-2024 11:07-0500 Body temperature 97.3 [degF] Asuncion Valencia COMMUNITY SPORTS COORDINATOR - CITY [employer] Work Phone: [employer] 11-10-2024 11:07-0500 Diastolic blood pressure 81 mm[Hg] Asuncion Valencia COMMUNITY SPORTS COORDINATOR - CITY [employer] Work Phone: [employer] 11-10-2024 11:07-0500 Heart rate 83 /min Asuncion Valencia COMMUNITY SPORTS COORDINATOR - CITY [employer] Work Phone: [employer] 11-10-2024 11:07-0500 Systolic blood pressure 142 mm[Hg] Asuncion Valencia COMMUNITY SPORTS COORDINATOR - CITY [employer] Work Phone: [facility] [employer] 10-24-2024 14:17-0500 Body temperature 96.91 [degF] Vicente Mixon MD Work Phone: [facility] [employer] 10-24-2024 13:39-0500 Diastolic blood pressure 83 mm[Hg] Vicente Mixon MD Work Phone: [facility] [employer] 10-24-2024 13:39-0500 Heart rate 64 /min Vicente Mixon MD Work Phone: [facility] [employer] 10-24-2024 13:39-0500 Respiratory rate 16 /min Vicente Mixon MD Work Phone: [facility] [employer] 10-24-2024 13:39-0500 SaO2% (BldA) [Mass fraction] 98 % Vicente Mixon MD Work Phone: [facility] [employer] 10-24-2024 13:39-0500 Systolic blood pressure 123 mm[Hg] Vicente Mixon MD Work Phone: [facility] [employer] 10-23-2024 13:55-0500 SaO2% (BldA) [Mass fraction] 93 % Dontrell Glozman DO Work Phone: [facility] [employer] 10-23-2024 08:14-0500 Body temperature 97.7 [degF] Dontrell Glozman DO Work Phone: [facility] [employer] 10-23-2024 08:14-0500 Diastolic blood pressure 54 mm[Hg] Dontrell Glozman DO Work Phone: [facility] [employer] 10-23-2024 08:14-0500 Heart rate 85 /min Dontrell Glozman DO Work Phone: [facility] [employer] 10-23-2024 08:14-0500 Respiratory rate 20 /min Dontrell Glozman DO Work Phone: [facility] [employer] 10-23-2024 08:14-0500 Systolic blood pressure 127 mm[Hg] Dontrell Glozman DO Work Phone: [facility] [employer] 10-22-2024 13:16-0500 Body height 167.6 cm Dontrell Glozman DO Work Phone: [facility] [employer] 10-18-2024 21:04-0500 Body mass index (BMI) [Ratio] 51.65 kg/m2 Dontrell Woodall DO Work Phone: [facility] [employer] 10-18-2024 21:04-0500 Body weight 145.15 kg Dontrell Woodall DO Work Phone: [facility] [employer] 02-11-2024 09:55-0400 Body height 167.6 cm Herber Ramos APRN - CITY [employer] Work Phone: [facility] [employer] 02-11-2024 09:55-0400 Body mass index (BMI) [Ratio] 46.83 kg/m2 Herber Ramos APRN - [employer] Work Phone: [facility] [employer] 02-11-2024 09:55-0400 Body weight 131.54 kg Herber Ramos APRN - [employer] Work Phone: [facility] [employer] 02-11-2024 09:55-0400 Diastolic blood pressure 78 mm[Hg] Herber Ramos APRN - [employer] Work Phone: [facility] 02-11-2024 09:55-0400 Heart rate 79 /min Herber Ramos APRN - KRANTHI Work Phone: [facility] [employer] 02-11-2024 09:55-0400 Respiratory rate 14 /min Herber Ramos APRN - [employer] Work Phone: [facility] [employer] 02-11-2024 09:55-0400 SaO2% (BldA) [Mass fraction] 99 % Herber Ramos APRN - [employer] Work Phone: [facility] [employer] Comment on above: 02-11-2024 09:55-0400 Systolic blood pressure 131 mm[Hg] Herber Ramos APRN - [employer] Work Phone: [facility] [employer] 01-27-2024 18:55-0400 Body height 167.6 cm Fermin Nesheim DO Work Phone: [facility] [employer] 01-27-2024 18:55-0400 Body mass index (BMI) [Ratio] 46.81 kg/m2 Fermin Nesheim DO Work Phone: [facility] 01-27-2024 18:55-0400 Body temperature 97.59 [degF] Fermin Nesheim DO Work Phone: [facility] 01-27-2024 18:55-0400 Body weight 131.54 kg Fermin Nesheim DO Work Phone: [facility] 01-27-2024 18:55-0400 Diastolic blood pressure 63 mm[Hg] Fermin Nesheim DO Work Phone: [facility] 01-27-2024 18:55-0400 Heart rate 78 /min Fermin Nesheim DO Work Phone: [facility] 01-27-2024 18:55-0400 Respiratory rate 18 /min Fermin Nesheim DO Work Phone: [facility] 01-27-2024 18:55-0400 SaO2% (BldA) [Mass fraction] 99 % Fermin Nesheim DO Work Phone: [facility] 01-27-2024 18:55-0400 Systolic blood pressure 155 mm[Hg] Fermin Nesheim DO Work Phone: [facility] 01-26-2024 21:29-0400 Body height 167.6 cm Art Zeng DO Work Phone: [facility] 01-26-2024 21:29-0400 Body mass index (BMI) [Ratio] 46.81 kg/m2 Art Zeng DO Work Phone: [facility] 01-26-2024 21:29-0400 Body weight 131.54 kg Art Peraltakemi DO Work Phone: [facility] 01-26-2024 21:28-0400 Body temperature 97.9 [degF] Art Zeng DO Work Phone: [facility] 01-26-2024 21:28-0400 Diastolic blood pressure 63 mm[Hg] Art Zeng DO Work Phone: [facility] 01-26-2024 21:28-0400 Heart rate 83 /min Art Zeng DO Work Phone: [facility] 01-26-2024 21:28-0400 Respiratory rate 16 /min Art Zeng DO Work Phone: [facility] 01-26-2024 21:28-0400 SaO2% (BldA) [Mass fraction] 100 % Art Zeng DO Work Phone: [facility] 01-26-2024 21:28-0400 Systolic blood pressure 124 mm[Hg] Art Zeng DO Work Phone: [facility] 01-22-2024 07:15-0400 Body temperature 97.59 [degF] Jaquan Roldanchke DO Work Phone: [facility] 01-22-2024 07:15-0400 Diastolic blood pressure 51 mm[Hg] Jaquan Roldanchke DO Work Phone: [facility] 01-22-2024 07:15-0400 Heart rate 94 /min Jaquan Roldanchke DO Work Phone: [facility] 01-22-2024 07:15-0400 Respiratory rate 20 /min Jaquan Roldanchke DO Work Phone: [facility] 01-22-2024 07:15-0400 SaO2% (BldA) [Mass fraction] 97 % Jaquan Roldanchke DO Work Phone: [facility] 01-22-2024 07:15-0400 Systolic blood pressure 160 mm[Hg] Jaquan Yulichke DO Work Phone: [facility] 12-29-2023 08:04-0500 Diastolic blood pressure 53 mm[Hg] Edwin Bustos MD Work Phone: [facility] 12-29-2023 08:04-0500 Heart rate 83 /min Edwin Bustos MD Work Phone: [facility] 12-29-2023 08:04-0500 Respiratory rate 17 /min Edwin Bustos MD Work Phone: [facility] 12-29-2023 08:04-0500 SaO2% (BldA) [Mass fraction] 100 % Edwin Bustos MD Work Phone: [facility] [employer] 12-29-2023 08:04-0500 Systolic blood pressure 132 mm[Hg] Edwin Bustos MD Work Phone: [facility] [employer] 12-28-2023 23:14-0500 Body height 167.6 cm Edwin Bustos MD Work Phone: [facility] [employer] 12-28-2023 23:14-0500 Body mass index (BMI) [Ratio] 52.29 kg/m2 Edwin Bustos MD Work Phone: [facility] [employer] 12-28-2023 23:14-0500 Body temperature 97.59 [degF] Edwin Bustos MD Work Phone: [facility] [employer] 12-28-2023 23:14-0500 Body weight 146.97 kg Edwin Bustos MD Work Phone: [facility] [employer] 12-09-2023 10:05-0500 Diastolic blood pressure 63 mm[Hg] Caridad Evans MD Work Phone: [facility] [employer] 12-09-2023 10:05-0500 Heart rate 78 /min Caridad Evans MD Work Phone: [facility] [employer] 12-09-2023 10:05-0500 Respiratory rate 23 /min Caridad Evans MD Work Phone: [facility] [employer] 12-09-2023 10:05-0500 SaO2% (BldA) [Mass fraction] 97 % Caridad Evans MD Work Phone: [facility] [employer] 12-09-2023 10:05-0500 Systolic blood pressure 159 mm[Hg] Caridad Evans MD Work Phone: [facility] [employer] 12-09-2023 05:22-0500 Body mass index (BMI) [Ratio] 51.7 kg/m2 Caridad Evans MD Work Phone: [facility] 12-09-2023 05:22-0500 Body temperature 98.4 [degF] Caridad Evans MD Work Phone: [facility] 12-09-2023 05:22-0500 Body weight 145.29 kg Caridad Evans MD Work Phone: [facility] [employer] 10-16-2023 21:27-0500 Body temperature 96.91 [degF] Rosaurapatricia Mustafa DO Work Phone: [facility] [employer] 10-16-2023 21:27-0500 Diastolic blood pressure 59 mm[Hg] Rosauragabe Mustafa DO Work Phone: [facility] [employer] 10-16-2023 21:27-0500 Heart rate 76 /min Rosaura Mustafa DO Work Phone: [facility] [employer] 10-16-2023 21:27-0500 Respiratory rate 20 /min Rosaura Mustafa DO Work Phone: [facility] 10-16-2023 21:27-0500 SaO2% (BldA) [Mass fraction] 94 % Rosaura Mustafa DO Work Phone: [facility] [employer] 10-16-2023 21:27-0500 Systolic blood pressure 100 mm[Hg] Rosaurapatricia Mustafa DO Work Phone: [facility] [employer] 10-11-2023 11:21-0500 Body height 167.6 cm Rosaura Mustafa DO Work Phone: [facility] 10-07-2023 16:06-0500 Body mass index (BMI) [Ratio] 51 kg/m2 Rosauragabe Mustafa DO Work Phone: [facility] 10-07-2023 16:06-0500 Body weight 143.34 kg Rosauragabe Mustafa DO Work Phone: [facility] [employer] 08-19-2023 19:25-0400 Body temperature 97.3 [degF] Aaron Burgos DO Work Phone: [facility] 08-19-2023 19:25-0400 Diastolic blood pressure 60 mm[Hg] Aaron Gombash DO Work Phone: [facility] 08-19-2023 19:25-0400 Heart rate 86 /min Aaron Gombash DO Work Phone: [facility] 08-19-2023 19:25-0400 Respiratory rate 18 /min Aaron Gombash DO Work Phone: [facility] 08-19-2023 19:25-0400 SaO2% (BldA) [Mass fraction] 95 % Aaron Gombash DO Work Phone: [facility] 08-19-2023 19:25-0400 Systolic blood pressure 120 mm[Hg] Aaron Gombash DO Work Phone: [facility] 08-17-2023 12:17-0400 Body height 167.6 cm Aaron Gombash DO Work Phone: [facility] 08-17-2023 12:17-0400 Body mass index (BMI) [Ratio] 54.72 kg/m2 Aaron Gombash DO Work Phone: [facility] 08-17-2023 12:17-0400 Body weight 153.77 kg Aaron Gombash DO Work Phone: [facility] 08-08-2023 13:35-0400 Diastolic blood pressure 63 mm[Hg] Gayle Trevizo MD Work Phone: [facility] 08-08-2023 13:35-0400 Heart rate 100 /min Gayle Trevizo MD Work Phone: [facility] 08-08-2023 13:35-0400 Respiratory rate 20 /min Gayle Trevizo MD Work Phone: [facility] 08-08-2023 13:35-0400 SaO2% (BldA) [Mass fraction] 93 % Gayle Trevizo MD Work Phone: [facility] 08-08-2023 13:35-0400 Systolic blood pressure 122 mm[Hg] Gayle Trevizo MD Work Phone: [facility] 08-08-2023 06:36-0400 Body height 167.6 cm Gayle Trevizo MD Work Phone: [facility] 08-08-2023 06:36-0400 Body mass index (BMI) [Ratio] 54.72 kg/m2 Gayle Trevizo MD Work Phone: [facility] 08-08-2023 06:36-0400 Body temperature 98.29 [degF] Gayle Trevizo MD Work Phone: [facility] 08-08-2023 06:36-0400 Body weight 153.77 kg Gayle Trevizo MD Work Phone: [facility] 07-01-2023 11:21-0400 Body temperature 97.59 [degF] Rosaura Mustafa DO Work Phone: [facility] 07-01-2023 11:21-0400 Diastolic blood pressure 79 mm[Hg] Rosaura Mustafa DO Work Phone: [facility] 07-01-2023 11:21-0400 Heart rate 83 /min Rosaura Mustafa DO Work Phone: [facility] 07-01-2023 11:21-0400 Respiratory rate 20 /min Rosauragabe Mustafa DO Work Phone: [facility] 07-01-2023 11:21-0400 SaO2% (BldA) [Mass fraction] 94 % Rosaura Mustafa DO Work Phone: [facility] 07-01-2023 11:21-0400 Systolic blood pressure 133 mm[Hg] Rosaura Mustafa DO Work Phone: [facility] 07-01-2023 03:09-0400 Body mass index (BMI) [Ratio] 53.2 kg/m2 Rosaura Mustafa DO Work Phone: [facility] 07-01-2023 03:09-0400 Body weight 149.51 kg Rosaura Mustafa DO Work Phone: [facility] 03-08-2023 19:30-0400 Body temperature 98.49 [degF] Karlos Voll DO Work Phone: [facility] 03-08-2023 19:30-0400 Diastolic blood pressure 62 mm[Hg] Karlos Voll DO Work Phone: [facility] 03-08-2023 19:30-0400 Heart rate 82 /min Karlos Voll DO Work Phone: [facility] 03-08-2023 19:30-0400 Respiratory rate 18 /min Karlos Voll DO Work Phone: [facility] 03-08-2023 19:30-0400 SaO2% (BldA) [Mass fraction] 98 % Karlos Voll DO Work Phone: [facility] 03-08-2023 19:30-0400 Systolic blood pressure 140 mm[Hg] Karlos Voll DO Work Phone: [facility] 03-08-2023 12:54-0400 Body mass index (BMI) [Ratio] 54.07 kg/m2 Karlos Voll DO Work Phone: [facility] 03-08-2023 12:54-0400 Body weight 151.96 kg Karlos Voll DO Work Phone: [facility] 02-09-2023 10:39-0400 Diastolic blood pressure 75 mm[Hg] Geronimo Lee MD Work Phone: [facility] 02-09-2023 10:39-0400 Systolic blood pressure 137 mm[Hg] Geronimo Lee MD Work Phone: [facility] 12-08-2020 19:11-0500 BP Diastolic 74 mm[Hg] [facility] [place] 12-08-2020 19:11-0500 BP Systolic 151 mm[Hg] Art [facility] [place] 12-08-2020 19:11-0500 Pulse (Heart Rate) 70 /min [facility] [place] 12-08-2020 19:11-0500 Pulse Oximetry 98 % [facility] [place] 12-08-2020 19:11-0500 Respiratory Rate 15 /min [facility] [place] 12-08-2020 15:12-0500 Body Temperature 98.71 [degF] Art Carrizales [facility] [place] 12-08-2020 15:12-0500 Height 167.6 cm Art Carrizales [facility] [place] 11-28-2020 14:37-0500 Body Temperature 97.81 [degF] Joel Nelson [facility], [place] 11-28-2020 14:37-0500 BP Diastolic 79 mm[Hg] Joel Omar [facility] 11-28-2020 14:37-0500 BP Systolic 128 mm[Hg] Joeljaci Nelson [facility] 11-28-2020 14:37-0500 Pulse (Heart Rate) 75 /min Joeljaci Nelson [facility] 11-28-2020 14:37-0500 Pulse Oximetry 95 % [facility] [place] 11-28-2020 14:37-0500 Respiratory Rate 18 /min Joeljaci Nelson [facility] 11-27-2020 15:57-0500 Height 167.6 cm Joeljaci Nelson [facility] 11-27-2020 06:28-0500 BMI (Body Mass Index) 51.21 kg/m2 Joeljaci Nelson [facility] 11-27-2020 06:28-0500 Body weight 143.93 kg Joeljaci Nelson [facility], [place] 09-30-2020 14:21-0500 Body Temperature 98.71 [degF] Art Carrizales [facility] [place] 09-30-2020 14:21-0500 BP Diastolic 61 mm[Hg] Art Carrizales [facility] [place] 09-30-2020 14:21-0500 BP Systolic 115 mm[Hg] Art Carrizales [facility] [place] 09-30-2020 14:21-0500 Pulse (Heart Rate) 107 /min Art Carrizales [facility] [place] 09-30-2020 14:21-0500 Pulse Oximetry 97 % Art Zeng [facility], [place] 09-30-2020 14:21-0500 Respiratory Rate 18 /min Art Carrizales [facility] [place] 09-30-2020 05:45-0500 BMI (Body Mass Index) 53.34 kg/m2 Art Carrizales [facility] [place] 09-30-2020 05:45-0500 Body weight 149.91 kg Art Zeng [facility] [place] 09-26-2020 13:28-0500 Height 167.6 cm Art Zeng [facility] [place] 01-02-2020 12:22-0500 Body Temperature 96.3 [degF] Justin Walsh [facility], [place] 01-02-2020 12:22-0500 BP Diastolic 80 mm[Hg] Justin Walsh [place], [place] 01-02-2020 12:22-0500 BP Systolic 142 mm[Hg] Justin Walsh [place] 01-02-2020 12:22-0500 Pulse (Heart Rate) 115 /min Justincarolyn Walsh [place] 01-02-2020 12:22-0500 Pulse Oximetry 95 % Justin Walsh [place] 01-02-2020 12:22-0500 Respiratory Rate 16 /min Justin [place] 01-02-2020 12:15-0500 BMI (Body Mass Index) 54.88 kg/m2 Justin [place] 01-02-2020 12:15-0500 Body weight 154.22 kg Justincarolyn Walsh [place] Comment on above: verbal, arrived in own WC, did not know exact weight of 01-02-2020 12:15-0500 Height 167.6 cm Justin Walsh [facility], [place] 06-27-2019 14:00-0400 BP Diastolic 74 mm[Hg] [facility] [place] 06-27-2019 14:00-0400 BP Systolic 123 mm[Hg] Davie [facility], [place] 06-27-2019 02:01-0400 Pulse (Heart Rate) 90 /min [facility] [place] 06-27-2019 02:01-0400 Pulse Oximetry 100 % Davie [place], [place] 06-27-2019 02:01-0400 Respiratory Rate 17 /min Dav[place] 06-26-2019 21:32-0400 BMI (Body Mass Index) 62.46 kg/m2 Davie [place] 06-26-2019 21:32-0400 Body Temperature 98.01 [degF] Dav[place] 06-26-2019 21:32-0400 Body weight 175.54 kg [place] 06-26-2019 21:32-0400 Height 167.6 cm [place] 06-20-2019 15:37-0400 Body Temperature 100.09 [degF] [place] 06-20-2019 15:37-0400 BP Diastolic 76 mm[Hg] [place] 06-20-2019 15:37-0400 BP Systolic 117 mm[Hg] [place] 06-20-2019 15:37-0400 Pulse (Heart Rate) 107 /min [place] 06-20-2019 15:37-0400 Pulse Oximetry 94 % [place] 06-20-2019 15:37-0400 Respiratory Rate 22 /min [place] 06-19-2019 06:11-0400 BMI (Body Mass Index) 56.31 kg/m2 [place] 06-19-2019 06:11-0400 Body weight 158.26 kg [place] 06-14-2019 13:43-0400 Height 167.6 cm [place] Encounters Encounter Date Encounter Type Care Provider Facility Start: 08-23-2025 ambulatory Jared Chung lity:[facility] Start: 07-27-2025 End: 08-01-2025 Telephone encounter Dany Woodruff COMMUNITY SPORTS COORDINATOR - FINANCIAL OPERATIONS CLERK Work Phone: [facility] Comment on above: Diabetes Start: 07-26-2025 End: 07-26-2025 ambulatory JARED THOMAS [facility] Start: 07-26-2025 End: 07-26-2025 Office outpatient visit 40 minutes Dany Woodruff APRN - FINANCIAL OPERATIONS CLERK Work Phone: [facility] Comment on above: Type 2 diabetes lee itus with hyperglycemia, with long-term current use of insulin (HCC) (Primary Dx); Insulin resistance; Type 2 diabetes mellitus with peripheral neuropathy (HCC); 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); Hypertension associated with type 2 diabetes mellitus (HCC); Type 2 diabetes mellitus with hyperlipidemia ([facility]) ([facility]) Start: 07-23-2025 End: 07-24-2025 Telephone encounter Dany Woodruff APRN [employer] Work Phone: [facility] Comment on above: Diabetes (BGL) Start: 07-19-2025 ambulatory Jared Copei lity:[facility] Start: 07-18-2025 End: 07-18-2025 Telephone encounter Dany Woodruff APRN [employer] Work Phone: [facility] Comment on above: Diabetes (BGL) Start: 07-12-2025 ambulatory Jared Linnchad LEON Faci lity:[facility] Start: 07-10-2025 End: 07-11-2025 Emergency department patient visit Hermes Issa MD Work Phone: [facility] ED Comment on above: Acute nonintractable headache, unspecified headache type (Primary Dx); Nausea; Acute cystitis without hematuria; Hyperglycemia Start: 07-10-2025 ambulatory Jared LEON Faci lity:[facility] Start: 07-06-2025 ambulatory Jared Copei lity:[facility] Start: 07-04-2025 End: 07-11-2025 Telephone encounter Dany Woodruff COMMUNITY SPORTS COORDINATOR [employer] Work Phone: [facility] Comment on above: Diabetes (BGL) Start: 06-27-2025 End: 07-04-2025 Telephone encounter Dany Woodruff COMMUNITY SPORTS COORDINATOR - FINANCIAL OPERATIONS CLERK Work Phone: [facility] Comment on above: Diabetes (BGL) Start: 06-19-2025 End: 06-26-2025 Telephone encounter Dany Woodruff COMMUNITY SPORTS COORDINATOR - FINANCIAL OPERATIONS CLERK Work Phone: [facility] Comment on above: Diabetes (BGL) Start: 06-11-2025 ambulatory Jared Guzman EDWARD Chung lity:[facility] Start: 06-07-2025 End: 06-11-2025 Telephone encounter Gunner Stall PA-C Work Phone: [facility] Comment on above: Diabetes (BGL) Start: 06-07-2025 End: 06-07-2025 ambulatory JARED GUZMAN [facility] Start: 06-07-2025 End: 06-07-2025 Subsequent hospital visit by physician Farhad Chang MD Work Phone: [facility] Endoscopy Start: 05-31-2025 End: 06-01-2025 Telephone encounter Gunner Stall PA-C Work Phone: [facility] Comment on above: Diabetes (BGL) Care Coordination (E GD Colon reminder call) Start: 05-14-2025 End: 05-18-2025 Telephone encounter Gunner Stall PA-C Work Phone: [facility] Comment on above: Advice Only (/) Start: 05-10-2025 ambulatory Jared Guzman EDWARD Chung lity:[facility] Start: 05-07-2025 End: 05-07-2025 Telephone encounter Gunner Stall PA-C Work Phone: [facility] Comment on above: Diabetes (BGL) Start: 04-30-2025 End: 05-01-2025 Telephone encounter Gunner Stall PA-C Work Phone: [facility] Comment on above: Diabetes (BGL) Start: 04-17-2025 End: 04-17-2025 Telephone encounter Gunner Stall PA-C Work Phone: [facility] Comment on above: Diabetes Start: 04-06-2025 End: 04-06-2025 ambulatory KAUSHAL SCHULTZ [facility] Start: 04-06-2025 End: 04-06-2025 Office outpatient visit 25 minutes Kaushal Schultz JONATHAN Work Phone: [facility] Comment on above: Type 2 diabetes lee [...] 03-27-2025 End: 05-23-2025 Telephone encounter Lisa Lopes APRN - [employer] Work Phone: [facility] Comment on above: Missed Appointment ( Reschedule ); Diabetes (BGL) Start: 02-27-2025 End: 02-28-2025 Telephone encounter Lisa Lopes COMMUNITY SPORTS COORDINATOR - [employer] Work Phone: [facility] Comment on above: Diabetes (BGL) Start: 02-26-2025 End: 02-26-2025 ambulatory Jared LEON [facility] Work Phone: Start: 02-26-2025 End: 02-26-2025 Departed Referred Jared Guzman [facility] [place] [employer] [facility] Start: 02-26-2025 Registered Referred Jared Guzman [facility] [employer] Start: 02-26-2025 End: 02-26-2025 ambulatory Jared LEON Facility:[facility] Start: 02-15-2025 End: 02-16-2025 Telephone encounter Margo Guerrero COMMUNITY SPORTS COORDINATOR - [employer] Work Phone: [facility] Comment on above: Diabetes (BGL) Start: 02-09-2025 End: 02-09-2025 Subsequent hospital visit by physician Alejandro Mandel APRN - [employer] Work Phone: [facility] Comment on above: PAD (peripheral oh ry disease) (HCC) Start: 02-09-2025 End: 02-09-2025 ambulatory ALEJANDRO MANDEL [facility] Start: 02-08-2025 End: 02-08-2025 Telephone encounter Herber Palmerson COMMUNITY SPORTS COORDINATOR - [employer] Work Phone: [facility] [place] Comment on above: Results (CT chest wo IV contrast ) Start: 02-07-2025 End: 02-08-2025 Telephone encounter Margo Guerrero COMMUNITY SPORTS COORDINATOR - [employer] Work Phone: [facility] Comment on above: Diabetes (BGL) Start: 02-07-2025 End: 02-07-2025 ambulatory Jared LEON [facility] Work Phone: Start: 02-07-2025 End: 02-07-2025 Departed Referred Jared Guzman [facility] Start: 02-07-2025 End: 02-07-2025 ambulatory Jared LEON Facility:[facility] Start: 02-01-2025 End: 02-01-2025 ambulatory JARED GUZMAN [facility] Start: 02-01-2025 End: 02-01-2025 Office outpatient new 30 minutes Alejandro Mandel COMMUNITY SPORTS COORDINATOR - [employer] Work Phone: [facility] Vascular Surgery - [employer] Comment on above: PAD (peripheral oh ry disease) (HCC) (Primary Dx); Hx of AKA (above knee amputation), right (HCC); Lymphedema of left leg; Morbid obesity (HCC) Start: 01-29-2025 End: 01-31-2025 Telephone encounter Margo Guerrero COMMUNITY SPORTS COORDINATOR - [employer] Work Phone: [facility] Comment on above: Diabetes (BGL) Start: 01-15-2025 End: 01-22-2025 Telephone encounter Margo Guerrero COMMUNITY SPORTS COORDINATOR - [employer] Work Phone: [facility] Comment on above: Diabetes (BGL) Start: 01-01-2025 End: 01-02-2025 Telephone encounter Margo Guerrero APRN - [employer] Work Phone: [facility] Comment on above: Other (Lab results/B GL) Start: 01-01-2025 End: 01-01-2025 ambulatory MARGO GUERRERO [facility] Start: 01-01-2025 End: 01-01-2025 Office outpatient visit 25 minutes Margo Guerrero APRN - [employer] Work Phone: [facility] Comment on above: Type 2 diabetes lee itus with hyperglycemia, with long-term current use of insulin (HCC) (Primary Dx); Type 2 diabetes mellitus with diabetic autonomic neuropathy, with long-term current use of insulin (HCC); Microalbuminuria; Essential hypertension; Mixed hyperlipidemia; Class 3 severe obesity due to excess calories with serious comorbidity and body mass index (BMI) of 45.0 to 49.9 in adult ([facility]) Start: 12-27-2024 End: 12-27-2024 ambulatory Jared LEON [facility] Work Phone: Start: 12-27-2024 End: 12-27-2024 Departed Referred Jared Guzman [facility] Start: 12-27-2024 End: 12-27-2024 ambulatory Jared LEON Facility:[facility] Start: 12-21-2024 End: 12-21-2024 Office outpatient new 45 minutes [facility] JEREMY - [employer] Work Phone: [facility] Gastroenterology [facility] Comment on above: Fecal occult blood t est positive (Primary Dx); History of anemia; Calculus of gallbladder without cholecystitis without obstruction; BMI 50.0-59.9, adult ([facility]) Start: 12-21-2024 End: 12-21-2024 ambulatory [facility] Start: 12-20-2024 End: 12-26-2024 Telephone encounter Margo Guerrero APRN - [employer] Work Phone: [facility] Comment on above: Diabetes (BGL) Start: 12-07-2024 End: 12-07-2024 Office outpatient visit 25 minutes Lilo Rizo MD Work Phone: [facility] Comment on above: Cholecystitis (Prima ry Dx); Morbid obesity (HCC); Class 3 severe obesity with serious comorbidity and body mass index (BMI) of 50.0 to 59.9 in adult, unspecified obesity type (HCC) Start: 12-07-2024 End: 12-07-2024 ambulatory JARED GUZMAN [facility] Start: 12-05-2024 End: 12-05-2024 ambulatory Jared LENO [facility] Work Phone: Start: 12-05-2024 End: 12-05-2024 Departed Referred Jared Pemberton [employer] Start: 12-05-2024 Registered Referred Jared Montoya [employer] Start: 12-05-2024 End: 12-05-2024 ambulatory Jared Thomas EDWARD Facility:[facility] Start: 11-30-2024 End: 12-01-2024 ambulatory JARED STUARTLOLA [facility] Start: 11-30-2024 Registered Referred Jared Montoya [facility] Start: 11-22-2024 End: 11-22-2024 Telephone encounter Margo Guerrero APRN - KRANTHI Work Phone: [facility] Start: 11-21-2024 End: 11-29-2024 Telephone encounter Margo Guerrero APRN - [employer] Work Phone: [facility] Comment on above: Diabetes (BGL) Start: 11-15-2024 End: 11-20-2024 Telephone encounter Margo Guerrero APRN - [employer] Work Phone: [facility] Comment on above: Diabetes (BGL) Start: 11-14-2024 End: 11-14-2024 Office outpatient visit 10 minutes Asuncion Valencia APRN - [employer] Work Phone: [facility] Comment on above: Cholecystitis (Prima ry Dx) Start: 11-14-2024 End: 11-14-2024 ambulatory JARED GUZMAN [facility] Start: 11-13-2024 End: 11-14-2024 Telephone encounter Josie Powell RN [facility] - [facility] Comment on above: Care Coordination (E D Nuance Lung Nodule ) Start: 11-12-2024 End: 11-13-2024 Emergency department patient visit Virgil Escobar MD Work Phone: [facility] ED Comment on above: History of cholecyst itis (Primary Dx) Start: 11-10-2024 End: 11-10-2024 ambulatory JARED GUZMAN [facility] Start: 11-10-2024 End: 11-10-2024 Office outpatient visit 15 minutes Asuncion Valencia COMMUNITY SPORTS COORDINATOR - [employer] Work Phone: [facility] Comment on above: Cholecystitis (Prima ry Dx) Start: 11-10-2024 End: 11-10-2024 Departed Referred Jared Guzman [facility] Start: 11-10-2024 End: 11-10-2024 ambulatory Jared LEON Facility:[facility] Start: 10-30-2024 End: 10-30-2024 Telephone encounter Анна Mcmahon COMMUNITY SPORTS COORDINATOR - [employer] Work Phone: [facility] Comment on above: Diabetes (BGL) Start: 10-30-2024 End: 10-30-2024 Departed Referred Jared Guzman [employer] Start: 10-30-2024 End: 10-30-2024 ambulatory Jared Linnchad LEON Facility:[facility] Start: 10-24-2024 End: 10-24-2024 Emergency department patient visit Vicente Mixon MD Work Phone: [facility] ED Comment on above: Hypoglycemic episode in patient with diabetes mellitus (HCC) (Primary Dx) Start: 10-19-2024 End: 10-20-2024 Telephone encounter Lisa Lopes COMMUNITY SPORTS COORDINATOR - [employer] Work Phone: [facility] Start: 10-18-2024 End: 10-23-2024 Evaluation and management of inpatient Dontrell Woodall DO Work Phone: [facility] Medical Surgical Unit MSU 4S Comment on above: Acute cholecystitis (Primary Dx) Start: 09-22-2024 End: 09-22-2024 Departed Referred Jared Guzman [facility] Start: 09-22-2024 End: 09-22-2024 ambulatory Jared LEON Facility:[facility] Start: 09-19-2024 End: 09-20-2024 Telephone encounter Geronimo Lee MD Work Phone: [facility] Comment on above: Diabetes (BGL) Start: 09-12-2024 End: 09-12-2024 ambulatory Jaerd LEON Facility:[facility] Start: 09-11-2024 End: 09-12-2024 Telephone encounter Geronimo Lee MD Work Phone: [facility] Comment on above: Diabetes (BGL) Start: 09-11-2024 End: 09-11-2024 ambulatory Jared LEON Facility:[facility] Start: 08-08-2024 End: 08-09-2024 Telephone encounter Geronimo Lee MD Work Phone: [facility] Comment on above: Diabetes (BGL) Start: 08-03-2024 End: 08-08-2024 Telephone encounter Geronimo Lee MD Work Phone: [facility] Comment on above: Diabetes (BGL) Start: 07-17-2024 End: 07-18-2024 Telephone encounter Geronimo Lee MD Work Phone: [facility] Comment on above: Diabetes (BGL) Start: 05-02-2024 End: 05-02-2024 Telephone encounter Ryan Wyatt MA [facility] Endocrinology Start: 02-22-2024 Telephone encounter Geronimo ryan MD Work Phone: [facility] Endocrinology Comment on above: Diabetes (BGL) Start: 02-11-2024 End: 05-12-2024 Transcribe Orders Herber Ramos COMMUNITY SPORTS COORDINATOR - [employer] Work Phone: [facility] Central Scheduling Comment on above: Solitary pulmonary n odule (Primary Dx) Start: 02-11-2024 End: 02-11-2024 Office outpatient visit 15 minutes Herber Ramos COMMUNITY SPORTS COORDINATOR - [employer] Work Phone: [facility] Pulmonary Care Comment on above: Lung nodule (Primary Dx); JOHN (obstructive sleep apnea); Morbid obesity with BMI of 45.0-49.9, adult (HCC) Start: 01-27-2024 End: 01-28-2024 Emergency department patient visit Fermin Melchor DO Work Phone: [facility] Comment on above: Hypoglycemia (Primar y Dx) Start: 01-26-2024 End: 01-27-2024 Emergency department patient visit Art Zeng DO Work Phone: [facility] Comment on above: Hypoglycemia (Primar y Dx) Start: 01-22-2024 End: 01-22-2024 Emergency department patient visit Jaquan Escobar Alexandra DO Work Phone: [facility] ED Comment on above: Nausea and vomiting, unspecified vomiting type (Primary Dx); Cystitis Start: 01-20-2024 Telephone encounter Geronimo ryan MD Work Phone: [facility] Clinical Communication Comment on above: Appointment Start: 01-20-2024 End: 01-20-2024 ambulatory [facility] Work Phone: Start: 01-20-2024 End: 01-20-2024 Departed Referred [facility] Start: 01-20-2024 Registered Referred [facility] Start: 01-19-2024 Telephone encounter Geronimo ryan MD Work Phone: [facility] Endocrinology Comment on above: Diabetes (BGL) Start: 01-17-2024 End: 01-17-2024 ambulatory [facility] Work Phone: Start: 01-17-2024 End: 01-17-2024 Departed Referred [facility] Start: 01-17-2024 Registered Referred [facility] Start: 01-13-2024 End: 01-13-2024 ambulatory [facility] Work Phone: Start: 01-13-2024 End: 01-13-2024 Departed Referred [facility] Start: 01-13-2024 Registered Referred [facility] Start: 01-03-2024 Telephone encounter Josie Dean [facility] [email or web address] [facility] Pulmonary and Sleep Medicine Comment on above: Care Coordination (E D Nuance Lung Nodule ) Start: 12-31-2023 End: 12-31-2023 ambulatory [facility] Work Phone: Start: 12-31-2023 End: 12-31-2023 Departed Referred [facility] Start: 12-30-2023 End: 12-30-2023 [facility] Work Phone: Start: 12-30-2023 End: 12-30-2023 Departed Referred [facility] Start: 12-30-2023 Registered Referred [facility] Start: 12-28-2023 End: 12-29-2023 Emergency department patient visit Edwin Bustos MD Work Phone: [facility] Comment on above: Nausea and vomiting, unspecified vomiting type (Primary Dx) Start: 12-28-2023 Telephone encounter Geronimo ryan MD Work Phone: [facility] [employer] [facility] Endocrinology Comment on above: Diabetes (BGL) Start: 12-23-2023 End: 12-23-2023 Subsequent hospital visit by physician Elda Reaves ([place]) Work Phone: [facility] Nuclear Medicine Comment on above: Nausea with vomiting , unspecified Start: 12-22-2023 End: 12-22-2023 ambulatory [facility] Work Phone: Start: 12-22-2023 End: 12-22-2023 Departed Referred [facility] Start: 12-22-2023 Registered Referred [facility] Start: 12-13-2023 ambulatory Leonela Calix RN [facility] Clinical Communication Start: 12-13-2023 Patient encounter procedure Leonlea Calix RN [facility] Clinical Communication Start: 12-09-2023 End: 12-09-2023 Emergency department patient visit Caridad Evans MD Work Phone: [facility] ED Comment on above: Nausea vomiting and diarrhea (Primary Dx); Dehydration Start: 12-06-2023 Telephone encounter Geronimo ryan MD Work Phone: [facility] [employer] [facility] Endocrinology Comment on above: Diabetes (BGL) Start: 11-24-2023 Transcribe Monqiue Reaves ([place]) Work Phone: [facility] Central Scheduling Comment on above: Nausea with vomiting , unspecified (Primary Dx) Start: 11-23-2023 Telephone encounter Geronimo ryan MD Work Phone: [facility] [employer] [facility] Endocrinology Comment on above: Diabetes (BGL) Start: 11-23-2023 End: 11-23-2023 ambulatory [facility] Work Phone: Start: 11-23-2023 End: 11-23-2023 Departed Referred [facility] Start: 11-18-2023 End: 11-18-2023 ambulatory [facility] Work Phone: Start: 11-18-2023 End: 11-18-2023 Departed Referred [facility] Start: 11-18-2023 Registered Referred [facility] Start: 11-17-2023 End: 11-17-2023 ambulatory SARBJIT GARNER Facility:[facility] Start: 11-09-2023 Telephone encounter Geronimo ryan MD Work Phone: [facility] Endocrinology Comment on above: Advice Only Start: 10-27-2023 End: 10-27-2023 Office outpatient visit 25 minutes Geronimo Lee MD Work Phone: [facility] Endocrinology Comment on above: Type 2 diabetes lee itus with hyperglycemia, with long-term current use of insulin (HCC) (Primary Dx); Mixed hyperlipidemia; Primary hypertension Start: 10-26-2023 End: 10-26-2023 ambulatory [facility] Work Phone: Start: 10-26-2023 End: 10-26-2023 Departed Referred [facility] Start: 10-07-2023 End: 10-07-2023 Subsequent hospital visit by physician [facility] Exam Room [address] [facility] [address] Comment on above: Arrived Start: 10-07-2023 End: 10-17-2023 Evaluation and management of inpatient Rosaura Mustafa DO Work Phone: [facility] Cardiac Post Intervention Progressive Care Unit CPI PCU 4W Start: 09-20-2023 Telephone encounter Geronimo ryan MD Work Phone: [facility] Endocrinology Comment on above: Diabetes (BGL) Start: 09-20-2023 End: 09-20-2023 Departed Referred [facility] Start: 08-30-2023 Telephone encounter Geronimo ryan MD Work Phone: [facility] Endocrinology Comment on above: Diabetes (BGL) Start: 08-17-2023 End: 08-19-2023 Emergency department patient visit Aaron Burgos DO Work Phone: [facility] Medical Surgical Unit MSU 1E Comment on above: Upper abdominal pain (Primary Dx); Hypoglycemia Start: 08-17-2023 End: 08-17-2023 ambulatory [facility] Work Phone: Start: 08-17-2023 End: 08-17-2023 Departed Referred [facility] Start: 08-11-2023 Telephone encounter Geronimo ryan MD Work Phone: [facility] Endocrinology Comment on above: Diabetes (BGL) Start: 08-08-2023 End: 08-08-2023 Emergency department patient visit Gayle Trevizo MD Work Phone: [facility] ED Comment on above: Pyelonephritis (Prim valeria Dx); Upper abdominal pain; Nausea Start: 08-04-2023 End: 08-04-2023 [facility] Work Phone: Start: 08-04-2023 End: 08-04-2023 Departed Referred [facility] Start: 08-02-2023 End: 08-02-2023 Departed Referred [facility] Start: 08-02-2023 Registered Referred [facility] Start: 07-05-2023 Telephone encounter Geronimo ryan MD Work Phone: [facility] Endocrinology Comment on above: Care Coordination (E D Nuance Lung Nodule ) Care Coordination (E D Nuance Lung Nodule/Resp consult for lung nodule) Start: 07-05-2023 End: 07-05-2023 [facility] Work Phone: Start: 07-05-2023 End: 07-05-2023 Departed Referred [facility] Start: 06-29-2023 End: 06-29-2023 Evaluation and management of inpatient Art Palmer MD Work Phone: [facility] Endoscopy Start: 06-28-2023 End: 07-01-2023 Emergency department patient visit Rosaura Mustafa DO Work Phone: [facility] 2E TELEMETRY Comment on above: Chest pain, unspecif ied type (Primary Dx) Start: 06-22-2023 Telephone encounter Geronimo ryan MD Work Phone: [facility] Endocrinology Comment on above: Diabetes (BGL) Start: 05-31-2023 End: 05-31-2023 Departed Referred [facility] Start: 05-31-2023 Registered Referred [facility] Start: 05-17-2023 Telephone encounter Geronimo ryan MD Work Phone: [facility] Endocrinology Comment on above: Diabetes (BGL) Start: 05-05-2023 Telephone encounter Geronimo ryan MD Work Phone: [facility] Endocrinology Comment on above: Diabetes (BGL) Start: 04-19-2023 End: 04-19-2023 ambulatory [facility] Work Phone: Start: 04-19-2023 End: 04-19-2023 Departed Referred [facility] Start: 03-30-2023 End: 03-30-2023 ambulatory [facility] Work Phone: Start: 03-30-2023 End: 03-30-2023 [facility] Start: 03-15-2023 End: 03-15-2023 Departed Referred [facility] Start: 03-08-2023 End: 03-08-2023 Emergency department patient visit Karlos Osborn DO Work Phone: [facility] ED Comment on above: Abdominal pain, gene ralized (Primary Dx); Gastroparesis Start: 02-25-2023 Telephone encounter Geronimo ryan MD Work Phone: [facility] Endocrinology Comment on above: Diabetes (BGL) Start: 02-09-2023 End: 02-09-2023 Office outpatient visit 25 minutes Geronimo Lee MD Work Phone: [facility] Endocrinology Comment on above: Type 2 diabetes lee itus with hyperglycemia, with long-term current use of insulin ([facility]/HCC) (HCC) (Primary Dx); Mixed hyperlipidemia; Primary hypertension Start: 01-26-2023 Transcribe Orders Jared moyer Work Phone: [facility] Physician Referral Service Start: 01-13-2023 End: 01-13-2023 ambulatory [facility] Work Phone: Start: 01-13-2023 End: 01-13-2023 Departed Referred [facility] Start: 12-02-2022 End: 12-02-2022 ambulatory [facility] Work Phone: Start: 12-02-2022 End: 12-02-2022 [facility] [employer] Start: 10-27-2022 End: 10-27-2022 ambulatory [facility] Work Phone: Start: 10-27-2022 End: 10-27-2022 [facility] [employer] Start: 06-24-2022 End: 06-24-2022 ambulatory [facility] Work Phone: Start: 06-24-2022 End: 06-24-2022 [facility] [employer] Start: 05-25-2022 End: 05-25-2022 [facility] [employer] Start: 04-27-2022 End: 04-27-2022 [facility] [employer] Start: 04-13-2022 End: 04-13-2022 [facility] [employer] Start: 04-13-2022 [facility] [employer] Start: 03-02-2022 End: 03-02-2022 [facility] [employer] Start: 01-29-2022 End: 01-29-2022 [facility]ed [facility] [employer] Start: 01-29-2022 Registered [facility] [employer] Start: 01-19-2022 End: 01-19-2022 Departed [facility] [employer] Start: 01-19-2022 [facility] [employer] Start: 12-08-2020 End: 12-08-2020 Emergency department patient visit Art Escobar Kathrynkemi Work Phone: [facility] [employer] Comment on above: Bacterial urinary in fection (Primary Dx); Non-intractable vomiting with nausea, unspecified vomiting type; Abdominal pain, unspecified abdominal location Start: 11-22-2020 End: 11-28-2020 Evaluation and management of inpatient Joel Nelson Work Phone: [facility] 7E Oncology Comment on above: Hypoglycemia (Primar y Dx); Nausea Start: 09-17-2020 End: 09-30-2020 Evaluation and management of inpatient Art Zeng Work Phone: [facility] 2E TELEMETRY Comment on above: Ileus (HCC) (Primary Dx); Nausea and vomiting, intractability of vomiting not specified, unspecified vomiting type; Generalized abdominal pain Start: 01-02-2020 End: 01-02-2020 Subsequent hospital visit by physician Justin Walsh Work Phone: [facility] Pre-Admit Testing Comment on above: Arrived Start: 06-26-2019 End: 06-27-2019 Emergency department patient visit Davie Blank Work Phone: [facility] Comment on above: Amputation stump inf ection (HCC) (Primary Dx) Start: 06-14-2019 End: 06-20-2019 Evaluation and management of inpatient Dom Ortiz Work Phone: [facility] H6 TELEMETRY Comment on above: Diabetic foot infect ion (HCC) (Primary Dx); Lactic acidosis; Morbid obesity (HCC) Start: 01-03-2019 End: 01-03-2019 Patient encounter procedure [facility] Start: 12-27-2018 End: 12-27-2018 Patient encounter procedure [facility] Start: 07-12-2018 End: 07-12-2018 Patient encounter procedure [facility] Start: 06-28-2018 End: 06-28-2018 Patient encounter procedure [facility] Start: 06-14-2018 End: 06-14-2018 Patient encounter procedure [facility] Start: 05-04-2018 Ambulatory Kylah Nobles ty:[facility] Start: 04-28-2018 End: 05-06-2018 Evaluation and management of inpatient [facility] Start: 03-18-2018 Ambulatory Kylah Nobles ty:[facility] Start: 03-15-2018 End: 03-21-2018 Evaluation and management of inpatient KYLAH Escobar [facility] Start: 02-02-2018 End: 02-08-2018 Evaluation and management of inpatient KYLAH Luz [facility] Procedures Date Procedure Procedure Detail Performing Clinician Start: 07-10-2025 Assay of troponin quantitative Toi Satietyi cary PA-C Work Phone: Start: 07-10-2025 Urnls dip stick/tablet reagent auto microscopy Toi Douglas PA-C Work Phone: Start: 07-10-2025 Ct abdomen & pelvis w/contrast material Toi Douglas PA-C Work Phone: Start: 07-10-2025 Blood gases any combination ph pco2 po2 co2 hco3 Toi Douglas PA-C Work Phone: Start: 07-10-2025 Comprehensive metabolic panel [employer] PA-C Work Phone: Start: 07-10-2025 Ecg routine ecg w/least 12 lds trcg only w/o i&r Toi Douglas PA-C Work Phone: Start: 06-07-2025 Colonoscopy Farhad Chang MD Work Phone: Start: 04-06-2025 Hemoglobin glycosylated a1c Kaushal Schultz PA-C Work Phone: Start: 04-06-2025 Follow-up visit JARED GUZMAN Start: 02-26-2025 Serum inorganic phosphate measurement Jared LEON Start: 02-09-2025 Non-invasive physiologic study extremity 3 niki Mandel [employer] CO[employer]IN[employer] Work Phone: Start: 02-01-2025 Follow-up visit JARED GUZMAN Start: 01-01-2025 Follow-up visit JARED GUZMAN Start: 12-27-2024 Measurement of renal function Jared LEON Comment on above: GFR Calc Start: 12-21-2024 Follow-up visit JARED GUZMAN Start: 12-07-2024 Follow-up visit JARED GUZMAN Start: 11-14-2024 Follow-up visit JARED GUZMAN Start: 11-12-2024 Basic metabolic panel calcium total Ramsey Carleen [employer]UN[employer]TS COORDINATOR - [employer] Work Phone: Start: 11-12-2024 Ct abdomen & pelvis w/o contrast material Ramsey Apodaca [employer]TS COORDINATOR - [employer] Work Phone: Start: 11-10-2024 Urine culture Jared [...] 10-22-2024 Glucose quantitative blood xcpt reagent strip Álavro Thomas MD Work Phone: Start: 10-22-2024 Glucose [...] 10-19-2024 Manual Differential panel - Blood Grace Ra tree [facility] Work Phone: Start: 10-19-2024 Blood occult peroxidase [...] Ct abdomen & pelvis w/contrast material Dontrell Glozman DO Work Phone: Start: 10-18-2024 Ct angiography chest w/contrast/noncontrast Dontrell Glozman DO Work Phone: Start: 10-18-2024 Comprehensive metabolic panel Dontrell Gloz man DO Work Phone: Start: 10-18-2024 Manual differential performed [Presence] in Blood Dontrell Glozman DO Work Phone: Start: 10-18-2024 Ecg routine [...] 12 lds trcg only w/o i&r Ramsey R Rice DO Work Phone: Start: 12-23-2023 Gastric emptying [...] Glucose quantitative blood xcpt reagent strip Marcio Moore MD Work Phone: Start: 10-16-2023 Glucose quantitative blood xcpt reagent strip Marcio Moore MD Work Phone: Start: 10-16-2023 Glucose quantitative blood xcpt reagent strip Marcio Moore MD Work Phone: Start: 10-16-2023 Glucose quantitative blood xcpt reagent strip Marcio Moore MD Work Phone: Start: 10-15-2023 Glucose quantitative blood xcpt reagent strip Marcio Moore MD Work Phone: Start: 10-15-2023 Glucose quantitative blood xcpt reagent strip Marcio Moore MD Work Phone: Start: 10-15-2023 Glucose quantitative blood xcpt reagent strip Marcio Moore MD Work Phone: Start: 10-15-2023 POCT GLUCOSE METER UNSOLICITED RESULTS Marcio Moore MD Work Phone: Start: 10-15-2023 Glucose quantitative blood xcpt reagent strip Marcio Moore MD Work Phone: Start: 10-15-2023 POCT GLUCOSE METER UNSOLICITED RESULTS Marcio Moore MD Work Phone: Start: 10-14-2023 Glucose quantitative blood xcpt reagent strip Marcio Moore MD Work Phone: Start: 10-14-2023 Glucose quantitative blood xcpt reagent strip Marcio Moore MD Work Phone: Start: 10-14-2023 Glucose quantitative blood xcpt reagent strip Marcio Moore MD Work Phone: Start: 10-14-2023 Glucose quantitative blood xcpt reagent strip Marcio Moore MD Work Phone: Start: 10-14-2023 Basic metabolic panel calcium total Marcio Moore MD Work Phone: Start: 10-14-2023 Glucose quantitative blood xcpt reagent strip Marcio Moore MD Work Phone: Start: 10-13-2023 End: 10-13-2023 Glucose quantitative blood xcpt reagent strip Marcio Moore MD Work Phone: Start: 10-13-2023 Glucose quantitative blood xcpt reagent strip Marcio Moore MD Work Phone: Start: 10-13-2023 Glucose quantitative blood xcpt reagent strip Marcio Moore MD Work Phone: Start: 10-13-2023 Glucose quantitative blood xcpt reagent strip Marcio Moore MD Work Phone: Start: 10-13-2023 Glucose quantitative blood xcpt reagent strip Marcio Moore MD Work Phone: Start: 10-13-2023 Basic metabolic panel calcium total Marcio Moore MD Work Phone: Start: 10-12-2023 Glucose quantitative blood xcpt reagent strip Marcio Moore MD Work Phone: Start: 10-12-2023 Glucose quantitative blood xcpt reagent strip Marcio Moore MD Work Phone: Start: 10-12-2023 Glucose quantitative blood xcpt reagent strip Marcio Moore MD Work Phone: Start: 10-12-2023 Radiologic exam chest single view Abbey Askew MD Work Phone: Start: 10-12-2023 Insertion picc w/rs&i 5 yr/> Funmi hollis MD Work Phone: Start: 10-12-2023 Glucose quantitative blood xcpt reagent strip Marcio Moore MD Work Phone: Start: 10-12-2023 Glucose quantitative blood xcpt reagent strip Marcio Moore MD Work Phone: Start: 10-12-2023 Glucose quantitative blood xcpt reagent strip Marcio Moore MD Work Phone: Start: 10-12-2023 Basic metabolic panel calcium total Marcio Moore MD Work Phone: Start: 10-11-2023 Glucose quantitative blood xcpt reagent strip Marcio Moore MD Work Phone: Start: 10-11-2023 End: 10-11-2023 Glucose quantitative blood xcpt reagent strip Marcio Moore MD Work Phone: Start: 10-11-2023 End: 10-11-2023 POCT GLUCOSE METER UNSOLICITED RESULTS Marcio Moore MD Work Phone: Start: 10-11-2023 Glucose quantitative blood xcpt reagent strip Marcio Moore MD Work Phone: Start: 10-11-2023 Glucose quantitative blood xcpt reagent strip Marcio Moore MD Work Phone: Start: 10-11-2023 Comprehensive metabolic [...] 10-09-2023 Drug screen quantitative vancomycin Rachael Robertson [employer]TS CO[employer]INATOR - [employer] Work Phone: Start: 10-09-2023 End: 10-09-2023 Hemoglobin [...] abdomen & pelvis w/contrast material Rachael Robertson COMMUN[employer]TS CO[employer]INATOR - [employer] Work Phone: Start: 10-08-2023 Glucose quantitative blood xcpt reagent strip Mayda Olmstead MD Work Phone: Start: 10-08-2023 Basic metabolic panel calcium total Rachael Robertson [employer]TS CO[employer]ATOR - [employer] Work Phone: Start: 10-07-2023 Glucose quantitative blood xcpt reagent strip Ricardo Spring MD Work Phone: Start: 10-07-2023 Procalcitonin (pct) Rachael Marcelo [employer] CO[employer]ATOR - [employer] Work Phone: Start: 10-07-2023 Glucose quantitative blood xcpt reagent strip Ricardo Spring MD Work Phone: Start: 10-07-2023 End: 10-07-2023 Glucose quantitative blood xcpt reagent strip Rosaura Mustafa DO Work Phone: Start: 10-07-2023 Culture bacterial quanttative colony count urine Rosaura Mustafa DO Work Phone: Start: 10-07-2023 Drug tst prsmv instrmnt chem analyzers pr date Rachael Robertson [employer]UN[employer] CO[employer]ATOR - [employer] Work Phone: Start: 10-07-2023 Urinalysis complete panel [...] test def 1-7 classes Rachael Herman son COMMUNITY SPORTS COORDINATOR - [employer] Work Phone: Start: 08-19-2023 Glucose quantitative blood [...] Glucose quantitative blood xcpt reagent strip Nabil Mane Esterle DO Work Phone: Start: 08-18-2023 Glucose quantitative blood xcpt reagent strip Nabil M Esterle DO Work Phone: Start: 08-18-2023 Glucose quantitative blood xcpt reagent strip Aaron Burgos DO Work Phone: Start: 08-18-2023 Glucose quantitative blood xcpt reagent strip Aaron Pazash DO Work Phone: Start: 08-18-2023 Basic metabolic panel calcium total Nabil Mane Esterle DO Work Phone: Start: 08-17-2023 Glucose quantitative blood xcpt reagent strip Aaron Pazash DO Work Phone: Start: 08-17-2023 Urinalysis complete panel - Urine Aaron Burgos DO Work Phone: Start: 08-17-2023 Urnls dip stick/tablet reagent auto microscopy Aaron Burgos DO Work Phone: Start: 08-17-2023 Ecg routine ecg w/least 12 lds trcg only w/o i&r Brandon Deana DO Work Phone: Start: 08-17-2023 POCT GLUCOSE METER Brandon Waterloo DO Work Phone: Start: 08-17-2023 End: 08-17-2023 Glucose quantitative blood xcpt reagent strip Aaron Kelley Gombash DO Work Phone: Start: 08-17-2023 POCT GLUCOSE METER UNSOLICITED RESULTS Aaron Burgos DO Work Phone: Start: 08-17-2023 Ct abdomen & pelvis w/contrast material Aaron Pazash DO Work Phone: Start: 08-17-2023 Comprehensive metabolic [...] 03-08-2023 End: 03-08-2023 Comprehensive metabolic panel Jocelyn rocha MD Work Phone: Start: 02-09-2023 Lipid 1996 panel - Serum or Plasma Geronimo Lee MD Work Phone: Start: 12-08-2020 Ecg routine ecg w/least 12 lds w/i&r Art Zeng Work Phone: Start: 12-08-2020 Urnls dip stick/tablet rgnt auto w/o microscopy Art Zeng Work Phone: Start: 12-08-2020 Us abdominal real time w/image limited Art Zeng Work Phone: Start: 12-08-2020 Radiologic exam chest single view Michae elijah Zeng Work Phone: Start: 12-08-2020 Assay of lipase [...] 11-28-2020 Radiologic exam abdomen 1 view Mhd John Martin Work Phone: Start: 11-28-2020 Gluc bld gluc [...] 11-27-2020 Radiologic exam abdomen 1 view Mhd John Martin Work Phone: Start: 11-27-2020 Gluc bld gluc [...] Gabo A Estrada Work Phone: Start: 11-26-2020 Glucose quantitative blood xcpt reagent strip Gabo A Estrada Work Phone: Start: 11-26-2020 OPERATIVE REPORT 3m Scanning Start: 11-26-2020 Gluc bld gluc mntr dev cleared fda spec home use Gabo A Estrada Work Phone: Start: 11-26-2020 Level iv surg pathology gross&microscopic exam Virgil Marshall Work Phone: Start: 11-26-2020 Gluc bld gluc mntr dev cleared fda spec home use Gabo A Estrada Work Phone: Start: 11-26-2020 Assay of thyroid stimulating hormone tsh Анна Villela Work Phone: Start: 11-25-2020 Gluc bld gluc mntr dev cleared fda spec home use Gabo A Estrdaa Work Phone: Start: 11-25-2020 Gluc bld gluc mntr dev cleared fda spec home use Art Rosado Pieter Work Phone: Start: 11-25-2020 Radiologic exam abdomen 1 view Art Kleley bethany Stapleton Work Phone: Start: 11-25-2020 Gluc bld gluc mntr dev cleared fda spec home use Art Rosado Pieter Work Phone: Start: 11-25-2020 Us transvaginal Jakob [...] Art Rosado Pieter Work Phone: Start: 11-24-2020 Blood count complete auto&auto difrntl wbc Kylah David Work Phone: Start: 11-24-2020 Comprehensive metabolic panel Leonela Guerrero Work Phone: Start: 11-23-2020 Gluc bld gluc mntr dev cleared fda spec home use Art Rosado Pieter Work Phone: Start: 11-23-2020 Gluc bld gluc mntr dev cleared fda spec home use Art Alonzo Pieter Work Phone: Start: 11-23-2020 Gluc bld gluc mntr dev cleared fda spec home use Art Rosado Pieter Work Phone: Start: 11-23-2020 Gluc bld gluc mntr dev cleared fda spec home use Art Rosado Pieter Work Phone: Start: 11-23-2020 Blood count complete auto&auto difrntl wbc Art Rosado Pieter Work Phone: Start: 11-23-2020 Comprehensive metabolic panel Leonela Guerrero Work Phone: Start: 11-23-2020 Hemoglobin glycosylated a1c Art Kruse marcia Stapleton Work Phone: Start: 11-23-2020 Glucose quantitative blood xcpt reagent strip Art Kruseony Pieter Work Phone: Start: 11-22-2020 Glucose quantitative blood [...] Esterle Work Phone: Start: 09-27-2020 COVID-19 Art Stapleton Work Phone: Start: 09-27-2020 Gluc bld gluc [...] 09-25-2020 Radiologic exam abdomen 1 view Nabil M Es terle Work Phone: Start: 09-25-2020 Gluc [...] 09-24-2020 Radiologic exam abdomen 1 view Nabil M Es terle Work Phone: Start: 09-24-2020 Blood [...] 09-22-2020 Blood count complete auto&auto difrntl wbc Kyalh David Work Phone: Start: 09-21-2020 Gluc bld [...] 09-20-2020 Radiologic exam abdomen 1 view Nabil M Es terle Work Phone: Start: 09-20-2020 Gluc bld gluc mntr dev cleared fda spec home use Art Zeng Work Phone: Start: 09-20-2020 Basic metabolic panel calcium total Nabil M Esterle Work Phone: Start: 09-19-2020 Gluc bld gluc mntr dev cleared fda spec home use Art Zeng Work Phone: Start: 09-19-2020 Gluc bld gluc mntr dev cleared fda spec home use Art Peraltakemi Work Phone: Start: 09-19-2020 HM ENDOSCOPY REPORT 3m Scanning Start: 09-19-2020 Level iv surg pathology gross&microscopic exam Sergio Sibley Work Phone: Start: 09-19-2020 Gluc bld gluc mntr dev cleared fda spec home use Art Zeng Work Phone: Start: 09-19-2020 Radiologic exam abdomen 1 view Kylah robles Work Phone: Start: 09-19-2020 Gluc bld gluc mntr dev cleared fda spec home use Art Peraltakemi Work Phone: Start: 09-19-2020 Blood count complete [...] 09-18-2020 Radiologic exam abdomen 1 view Nabil M Es terle Work Phone: Start: 09-18-2020 Gluc bld gluc mntr dev cleared fda spec home use Art Zeng Work Phone: Start: 09-18-2020 Blood count complete auto&auto difrntl wbc Nabil Hill Work Phone: Start: 09-17-2020 Gluc bld gluc mntr dev cleared fda spec home use Art eZng Work Phone: Start: 09-17-2020 Urnls dip stick/tablet [...] routine ecg w/least 12 lds w/i&r Marcella Gilliam Ju Work Phone: Start: 01-02-2020 BASIC METABOLIC PANEL [...] dev cleared fda spec home use Jayesh Mane Jordan Work Phone: Start: 06-19-2019 Gluc bld gluc mntr dev cleared fda spec home use Jayesh Mane Jordan Work Phone: Start: 06-19-2019 Gluc bld gluc mntr dev cleared fda spec home use Jayesh Mane Jordan Work Phone: Start: 06-19-2019 Blood count complete auto&auto difrntl wbc Jarek Katz Work Phone: Start: 06-19-2019 Procalcitonin (pct) Jarek Katz Work Phone: Start: 06-18-2019 Gluc bld gluc mntr dev cleared fda spec home use Jayesh Jordan Work Phone: Start: 06-18-2019 Gluc bld gluc mntr dev cleared fda spec home use Dom Cardenaso Work Phone: Start: 06-18-2019 Gluc bld gluc [...] home use Dom Cardenaso Work Phone: Start: 06-17-2019 Potassium serum plasma/whole blood Crystal Mullins Work Phone: Start: 06-17-2019 Gluc bld gluc [...] dev cleared fda spec home use Jayesh Mane Jordan Work Phone: Start: 06-16-2019 Gluc bld gluc mntr dev cleared fda spec home use Jayesh Mane Jordan Work Phone: Start: 06-16-2019 Blood count complete automated Jayesh M michael Work Phone: Start: 06-16-2019 Blood count complete auto&auto difrntl wbc Jarek Katz Work Phone: Start: 06-16-2019 Blood count complete automated Jarek santos Work Phone: Start: 06-16-2019 Drug screen quantitative vancomycin Keily Jermaine Araujo Work Phone: Start: 06-15-2019 Gluc bld gluc mntr dev cleared fda spec home use Dom R Ortiz Work Phone: Start: 06-15-2019 Gluc bld gluc mntr dev cleared fda spec home use Dom R Ortiz Work Phone: Start: 06-15-2019 Gluc bld gluc mntr dev cleared fda spec home use Jayesh Gilliam Crickette Work Phone: Start: 06-15-2019 End: 06-15-2019 Gluc bld gluc mntr dev cleared fda spec home use Jayesh M Crickette Work Phone: Start: 06-15-2019 Gluc bld gluc mntr dev cleared fda spec home use Jayesh Gilliam Crickette Work Phone: Start: 06-15-2019 Blood count complete auto&auto difrntl wbc Jarek Katz Work Phone: Start: 06-15-2019 Blood count complete automated Jarek santos Work Phone: Start: 06-14-2019 Radiologic examination femur minimum 2 views Scooter Deal Work Phone: Start: 06-14-2019 Gluc bld gluc mntr dev cleared fda spec home use Jayeshjermaine Jordan Work Phone: Start: 06-14-2019 Chest x-ray 1 view frontal Scooter Deal Work Phone: Start: 06-14-2019 Blood typing serologic abo Scooter Deal Work Phone: Start: 06-14-2019 Procalcitonin (pct) Jarek Katz Work Phone: Start: 06-14-2019 Prothrombin time Scooter Deal Work Phone: Start: 06-14-2019 Ecg routine ecg w/least 12 lds w/i&r Scooter Deal Work Phone: Start: 06-14-2019 Radex foot complete minimum 3 views Domsade Ortiz Work Phone: Start: 06-14-2019 ADD ON LAB TEST Dom R Angel Work Phone: Start: 06-14-2019 End: 06-14-2019 Culture bacterial blood aerobic w/id isolates Marianna Dean Dontrell Work Phone: Start: 06-14-2019 Assay of lactate Marianna Dean Dontrell Work Phone: Start: 06-14-2019 Basic metabolic panel calcium total Marianna Dean Dontrell Work Phone: Start: 06-14-2019 Blood count complete auto&auto difrntl wbc Marianna Dean Dontrell Work Phone: Start: 06-14-2019 C-reactive protein Marianna Dean Dontrell Work Phone: Start: 06-14-2019 Ketone bodies serum [...] for Adults (1 - 1-dose 75+ series) [facility] Start: 06-07-2035 Screening for malignant neoplasm of colon [facility] Start: 2026 RSV Immunization aged 60 or older (1 - 1-dose 60+ series) RSV Immunization aged 60 or older (1 - 1-dose 60+ series) [facility] Start: 2026 [facility] Start: 07-10-2026 Diabetes: Estimated Glomerular Filtration Rate for Kidney Health Diabetes: Estimated Glomerular Filtration Rate for Kidney Health [facility] Start: 04-19-2026 Glaucoma screening Diabetes: Retinopathy Screening [facility] Start: 04-06-2026 Hemoglobin A1c measurement Diabetes: Hemoglobin A1C [facility] Start: 03-27-2026 Diabetic foot examination Diabetes: Foot Exam [facility] Start: 01-01-2026 Diabetic foot examination Diabetes: Foot Exam [facility] Start: 12-01-2025 Diabetes: Estimated Glomerular Filtration Rate for Kidney Health Diabetes: Estimated Glomerular Filtration Rate for Kidney Health [facility] Start: 11-12-2025 Diabetes: Estimated Glomerular Filtration Rate for Kidney Health Diabetes: Estimated Glomerular Filtration Rate for Kidney Health [facility] Start: 10-24-2025 Diabetes: Estimated Glomerular Filtration Rate for Kidney Health Diabetes: Estimated Glomerular Filtration Rate for Kidney Health [facility] Start: 10-23-2025 Diabetes: Estimated Glomerular Filtration Rate for Kidney Health Diabetes: Estimated Glomerular Filtration Rate for Kidney Health [facility] Start: 10-20-2025 Diabetes: Estimated Glomerular Filtration Rate for Kidney Health Diabetes: Estimated Glomerular Filtration Rate for Kidney Health [facility] Start: 10-19-2025 Hemoglobin A1c measurement Diabetes: Hemoglobin A1C [facility] Start: 10-19-2025 Screening for malignant neoplasm of colon [facility] Start: 08-31-2025 Glaucoma screening Diabetes: Retinopathy Screening [facility] Start: 08-16-2025 End: 08-16-2025 Patient encounter procedure 08/16/2025 3:30 PM EDT Office Visit [facility] [address] [place] [address] Dany Woodruff APRN - FINANCIAL OPERATIONS CLERK [address] [facility] [address] [place] [address] [facility] Start: 08-07-2025 End: 08-07-2025 Patient encounter procedure 08/07/2025 3:30 PM EDT Office Visit [facility] [address] [place] [address] Kaushal Schultz PA-C [address] [place] [address] [facility] Start: 07-26-2025 End: 07-26-2025 Patient encounter procedure 07/26/2025 11:00 AM EDT Office Visit [facility] [address] [address] Dany Woodruff APRN - FINANCIAL OPERATIONS CLERK [address] [facility] [address] [place] [address] [facility] Start: 07-09-2025 COVID-19 Vaccine ( season) COVID-19 Vaccine ( season) [facility] Start: 07-09-[address] [facility] Start: 07-07-2025 End: 04-06-2026 Comprehensive metabolic 1998 panel - Serum or Plasma Comprehensive metabolic panel Lab Routine Type 2 diabetes mellitus with hyperglycemia, with long-term current use of insulin (HCC) Microalbuminuria Expected: 07/07/2025 (Approximate), Expires: 04/06/2026 [facility] Work Phone: Comment on above: Expected: 07/07/2025 (Approximate), Expi res: 04/06/2026 Start: 07-07-2025 End: 04-06-2026 Lipid 1996 panel - Serum or Plasma Lipid panel Lab Routine Mixed diabetic hyperlipidemia associated with type 2 diabetes mellitus (HCC) Expected: 07/07/2025 (Approximate), Expires: 04/06/2026 [facility] Comment on above: Expected: 07/07/2025 (Approximate), Expi res: 04/06/2026 Start: 07-07-2025 End: 04-06-2026 Microalbumin/Creatinine panel in random Urine Microalbumin / creatinine urine ratio Lab Routine Type 2 diabetes mellitus with hyperglycemia, with long-term current use of insulin (HCC) Microalbuminuria Expected: 07/07/2025 (Approximate), Expires: 04/06/2026 [facility] Comment on above: Expected: 07/07/2025 (Approximate), Expi res: 04/06/2026 Start: 06-22-[address] [facility] Start: 06-07-2025 End: 06-07-2025 Admission to same day surgery center 06/07/2025 11:00 AM EDT - 06/07/2025 12:00 PM EDT Surgery [facility] Endoscopy [address] [place] [address] Farhad Chang MD [address] [place] [address] [address] [place] [address] COLONOSCOPY [74092 (CPT )] [facility] Endoscopy Comment on above: COLONOSCOPY [58371 (CPT )] Start: 06-07-2025 End: 06-07-2025 Colonoscopy flx dx w/collj spec when pfrmd [facility] Gastroenterology Start: 06-07-2025 End: 06-07-2025 Esophagogastroduodenoscopy transoral diagnostic [facility] Gastroenterology Start: 06-07-2025 Subsequent hospital visit by physician 06/07/2025 11:00 AM EDT Hospital Encounter [facility] Endoscopy [address] [place] [address] Farhad Chang MD [address] [facility] [address] [place] [address] [facility] Endoscopy Start: 03-27-2025 End: 03-27-2025 Patient encounter procedure 03/27/2025 9:00 AM EDT Office Visit [facility] [address] [facility] [address] [place] [address] Lisa Lopes, COMMUNITY SPORTS COORDINATOR - [employer] [address] [place] [address] [facility] Start: 03-02-2025 End: 03-02-2025 Patient encounter procedure 03/02/2025 11:20 AM EDT Office Visit [facility] Lung Nodule [facility] [address] [place] [address] Herber Ramos, COMMUNITY SPORTS COORDINATOR - [employer] [address] [facility] [address] [place] [address] [facility] Lung Nodule [facility] Start: 02-14-2025 Glaucoma screening Diabetes: Retinopathy Screening [facility] Start: 02-09-2025 End: 02-09-2025 Patient encounter procedure 02/09/2025 2:20 PM EDT Appointment [facility] Vascular Lab [address] [place] [address] Alejandro Mandel COMMUNITY SPORTS COORDINATOR - [employer] [address] [facility] [address] [place] [phone] [facility] Vascular Lab Start: 02-06-2025 End: 02-10-2025 CT Chest WO contrast CT chest wo IV contrast Imaging Routine Lung nodule Expected: 02/06/2025, Expires: 02/10/2025 [facility] Work Phone: Comment on above: Expected: 02/06/2025, Expires: Start: 02-06-2025 End: 02-06-2025 Patient encounter procedure [facility] Start: 02-06-2025 End: 02-06-2025 Patient encounter procedure 02/06/2025 7:30 AM EDT Appointment [facility] CT Imaging [address] [place] [phone] Herber Ramos COMMUNITY SPORTS COORDINATOR - [employer] [address] [place] [address] [facility] CT Imaging Start: 02-01-2025 End: 02-01-2025 Patient encounter procedure 02/01/2025 9:30 AM EDT Office Visit [facility] Vascular [facility] [address] [facility] [address] [place] [address] Alejandro Mandel COMMUNITY SPORTS COORDINATOR - [employer] [address] [place] [phone] [facility] Surgery [facility] Start: 01-21-2025 Diabetes: Estimated Glomerular Filtration Rate for Kidney [facility] Diabetes: Estimated Glomerular Filtration Rate for Kidney Health [facility] Start: 01-01-2025 End: 01-01-2026 Lipid 1996 panel - Serum or Plasma Lipid panel Lab Routine Mixed hyperlipidemia Expected: 01/01/2025 (Approximate), Expires: 01/01/2026 [facility] Work Phone: Comment on above: Expected: 01/01/2025 (Approximate), Expi res: 01/01/2026 Start: 01-01-2025 End: 01-01-2026 Microalbumin/Creatinine panel in random Urine Microalbumin / creatinine urine ratio Lab Routine Type 2 diabetes mellitus with hyperglycemia, with long-term current use of insulin (HCC) Expected: 01/01/2025 (Approximate), Expires: 01/01/2026 [facility] Comment on above: Expected: 01/01/2025 (Approximate), Expi res: 01/01/2026 Start: 01-01-2025 End: 01-01-2025 Patient encounter procedure 01/01/2025 11:00 AM EST Office Visit [facility] [address] [facility] [address] [place] [phone] Margo Guerrero, COMMUNITY [employer]ORTS COORDINATOR - [employer] [address] [place] [address] [facility] Start: 12-31-2024 Hemoglobin A1c measurement Diabetes: Hemoglobin A1C [facility] Start: 12-21-2024 End: 12-21-2024 Patient encounter procedure 12/21/2024 8:30 AM EST [facility] [address] [place] [phone] Wanda Johnson COMMUNITY SPORTS COORDINATOR - [employer] [address] [place] [address] [facility] Start: 12-10-2024 Glaucoma screening Diabetes: Retinopathy Screening [facility] Start: 12-07-2024 End: 12-07-2024 Patient encounter procedure 12/07/2024 1:00 PM EST Office Visit [facility] [address] [facility] [address] [place] [phone] Lilo Rizo MD [address] [facility] [address] [place] [address] [facility] Start: 11-27-2024 End: 11-27-2024 Patient encounter procedure [facility] Start: 11-24-2024 End: 11-10-2025 RF Guidance for percutaneous drainage and placement of drainage catheter of Biliary ducts IR biliary drain check Imaging Routine Cholecystitis Expected: 11/24/2024, Expires: 11/10/2025 [facility] Work Phone: Comment on above: Expected: 11/24/2024, Expires: Start: 11-14-2024 End: 01-07-2025 Patient encounter procedure 11/14/2024 10:15 AM EST Office Visit [facility] [address] [facility] [address] [place] [phone] Asuncion Valencia APRN - CNP [address] [facility] [address] [place] [address] [facility] Start: 11-08-2024 Medicare Advantage Annual Wellness Visit Medicare [facility] Annual Wellness Visit [facility] Start: 10-09-[address] [facility] Start: 07-09-2024 COVID-19 Vaccine () COVID-19 Vaccine () [facility] Start: 07-09-2024 COVID-19 Vaccine () COVID-19 Vaccine () [facility] Start: 07-09-[address] [facility] Start: 06-22-2024 Glaucoma screening Diabetes: Retinopathy Screening [facility] Start: 03-14-2024 End: 03-14-2024 Patient encounter procedure 03/14/2024 2:30 PM EDT Office Visit [facility] Endocrinology [address] [place] [phone] Carito Thacker, COMMUNITY SPORTS COORDINATOR [facility] [address] [place] [address] [facility] Endocrinology Start: 02-11-2024 End: 02-10-2025 CT Chest WO contrast CT chest wo IV contrast Imaging Routine Solitary pulmonary nodule Expected: 02/11/2024, Expires: 02/10/2025 [facility] Work Phone: Comment on above: Expected: 02/11/2024, Expires: Start: 02-11-2024 End: 02-11-2024 Patient encounter procedure [facility] Start: 02-10-2024 Hemoglobin A1c measurement Diabetes: Hemoglobin A1C [facility] Start: 02-10-[address] [facility] Start: 01-06-2024 End: 01-06-2024 Patient encounter procedure 01/06/2024 11:30 AM EST Appointment [facility] [address] [place] [address] Herber Ramos APRN - [employer] [address] [place] [address] [facility] Start: 12-31-2023 End: 12-31-2023 ambulatory [facility] Start: 12-31-2023 End: 12-31-2023 Patient encounter procedure 12/31/2023 9:40 AM EST Office Visit [facility]monary Care [address] [place] [address] Herber Ramos APRN - [employer] [address] [place] [address] [facility] Start: 12-23-2023 End: 12-23-2023 Patient encounter procedure 12/23/2023 9:00 AM EST Appointment [facility] Nuclear Medicine [address] [place] [address] [facility] Nuclear Medicine Start: 12-20-2023 End: 12-20-[address] [facility] Start: 12-20-2023 End: 12-20-2023 Patient encounter procedure 12/20/2023 10:30 AM EST Appointment [facility] [address] [place] [address] Herber Ramos APRN - [employer] [address] [place] [address] [facility] Start: 11-08-2023 Medicare Advantage Annual Wellness Visit Medicare Advantage Annual Wellness Visit [facility] Start: 10-27-2023 End: 10-27-2023 ambulatory [facility] Endocrinology Start: 10-27-2023 End: 10-27-2023 Patient encounter procedure 10/27/2023 2:00 PM EST Office Visit [facility] Endocrinology [address] [place] [id number] Geronimo Lee MD [address] [place] [address] [facility] Start: 10-27-2023 End: 10-27-2023 Telemedicine consultation with patient 10/27/2023 2:00 PM EST Telemedicine [facility] Endocrinology [address] [place] [address] Geronimo Lee MD [address] [place] [address] [facility] Endocr[facility]ology Start: 09-17-2023 End: 09-17-2023 Patient encounter procedure 09/17/2023 Office Visit Endocrinology Geronimo Lee MD [address] [place] [address] [facility]ocr[facility]ology Start: 09-17-2023 End: 09-17-2023 Patient encounter procedure 09/17/2023 9:10 AM EST Office Visit [facility] [address] [place] [address] Herber Ramos, COMMUNITY SPORTS COORDINATOR - [employer] [address] [place] [address] [facility] Start: 08-13-2023 End: 08-13-2023 Patient encounter procedure 08/13/2023 11:40 AM EDT Office Visit [facility] [address] [place] [address] Herber Ramos, COMMUNITY SPORTS COORDINATOR - [employer] [address] [place] [address] [facility] Start: 07-30-2023 End: 07-30-2023 Patient encounter procedure 07/30/2023 9:10 AM EDT Office Visit [facility] Care [address] [place] [address] Herber Ramos, JEREMY - [employer] [address] [place] [address] [facility] Medical [facility] Pulmonary Care Start: 07-09-2023 COVID-19 Vaccine ( season) COVID-19 Vaccine () [facility] Start: 07-09-[address] [facility] Start: 07-09-2023 [facility] Start: 06-29-2023 End: 06-29-2023 Esophagogastroduodenoscopy transoral diagnostic EGD DIAGNOSTIC Nausea and vomiting, unspecified vomiting type 06/29/2023 9:54 AM EDT [facility] Gastroenterology Start: 05-11-2023 Hemoglobin A1c measurement Diabetes: Hemoglobin A1C [facility] Start: 10-19-2022 Hemoglobin A1c measurement Diabetes: Hemoglobin A1C [facility] Start: 08-08-2022 Influenza vaccination Influenza Vaccine (#1) [facility] Start: 04-23-2022 COVID-19 Vaccine (4 - Booster for Pfizer series) COVID-19 Vaccine (4 - Booster for Pfizer series) [facility] Start: 04-23-2022 COVID-19 Vaccine (4 - Pfizer series) COVID-19 Vaccine (4 - Pfizer series) [facility] Start: 12-08-2021 Creatinine measurement Creatinine monitoring [facility] [place] Start: 12-08-2021 Potassium monitoring Potassium monitoring [place], [place] Start: 11-28-2021 Creatinine measurement Creatinine monitoring [facility] [place] Start: 11-28-2021 Potassium monitoring Potassium monitoring [place], [place] Start: 09-26-2021 Creatinine measurement Creatinine monitoring [facility] [place] Start: 09-26-2021 Potassium monitoring Potassium monitoring [place], [place] Start: 08-29-[address] Lipid Panel [facility] Start: 08-23-2021 Lipid panel Lipid screen [place], [place] Start: 02-21-2021 HbA1c (Bld) [Mass fraction] A1C test (Diabetic or Prediabetic) [place], [place] Start: 01-24-2021 End: 01-24-2021 Office Visit 01/24/2021 Office Visit Endocrinology Geronimo Lee MD [address] [place] [address] [phone] [facility] [place] Start: 11-23-2020 End: 11-23-2020 HbA1c (Bld) [Mass fraction] [place], [place] Comment on above: One Time for 1 Occurrences starting 11/08 until 11/23/2020 Start: 07-09-2020 Influenza vaccination Flu vaccine (#1) [place], [place] Start: 06-26-2020 Creatinine monitoring Creatinine monitoring [place], [place] Start: 06-26-2020 Potassium monitoring Potassium monitoring [place] Start: 06-20-2020 Creatinine monitoring Creatinine monitoring [place] Start: 06-20-2020 Potassium monitoring Potassium monitoring [place] Start: 01-22-2020 End: 01-22-2020 Office Visit 01/22/2020 Office Visit Gynecologic Oncology Justin Walsh MD [address] [place] [address] [phone] [facility] Start: 01-09-2020 End: 01-09-2020 Appointment 01/09/2020 Appointment General Surgery Justin Walsh MD [address] [facility] [address] [place] [address] [phone] [facility] General Surgery Start: 09-16-2019 A1C test (Diabetic or Prediabetic) A1C test (Diabetic or Prediabetic) [place] Start: 07-17-2019 End: 07-17-2019 Office Visit 07/17/2019 Office Visit Gynecologic Oncology Justin Walsh MD [address] [facility] [place] [place] [address] [phone] [facility] [place] CHECKER/STOCKER Oncology Start: 07-13-2019 End: 07-13-2019 Office Visit 07/13/2019 Office Visit Gynecologic Oncology Mignon Bynum PA [address] [place] [phone] [facility] CHECKER/STOCKER Oncology Start: 07-09-2019 Influenza vaccination Flu vaccine (#1) [place], [place] Start: 06-28-2019 End: 06-28-2019 Office Visit 06/28/2019 Office Visit Orthopedic Surgery Sergio Pisano MD [address] [facility] [address] [place] [address] [phone] [facility] Orthopedics and Sports Medicine [place] Start: 06-27-2019 End: 06-27-2019 Hospital Encounter [facility] Comment on above: Canceled (Other) Start: 04-26-2019 Annual Wellness Visit (AWV) Annual Wellness Visit (AWV) [place], [place] Start: 2016 Breast cancer screen Breast cancer screen [place], [place] Start: 2016 Colon cancer screen colonoscopy Colon cancer screen colonoscopy [place] Start: 2016 Screening for malignant neoplasm of breast Breast cancer screen [place] Start: 2016 Screening for malignant neoplasm of colon Colon cancer screen colonoscopy [place] Start: 2016 Shingles (RZV) Vaccine (1 of 2) Shingles (RZV) Vaccine (1 of 2) [facility] Start: 2016 Shingles Vaccine (1 of 2) Shingles Vaccine (1 of 2) [place] Start: 2016 Zoster Vaccines (1 of 2) Zoster Vaccines (1 of 2) [facility] Start: 2016 [facility] Start: 2011 Cholesterol [Mass/volume] in Serum or Plasma Cholesterol [facility] Start: 2011 [facility] malignant [facility]oplasm [facility] Start: 2006 Screening for malignant neoplasm of breast [facility] Start: 1996 Screening for malignant neoplasm of cervix [facility] Start: 1987 Cervical cancer screen Cervical cancer screen [place], [place] Start: 1987 [facility]ening for malignant [facility]oplasm [facility] cervix [facility] Start: 1985 DTaP/Tdap/Td vaccine (1 - Tdap) DTaP/Tdap/Td vaccine (1 - Tdap) [place] Start: 1985 DTaP/Tdap/Td Vaccines (1 - Tdap) DTaP/Tdap/Td Vaccines (1 - Tdap) [facility] Start: 1985 Hepatitis B Vaccine (1 of 3 - Risk 3-dose series) Hepatitis B Vaccine (1 of 3 - Risk 3-dose series) [place] Start: 1985 Hepatitis B Vaccines (1 of 3 - 19+ 3-dose series) Hepatitis B Vaccines (1 of 3 - 19+ 3-dose series) [facility] Start: 1985 Pneumococcal Vaccine: 50+ Years (1 of 2 - PCV) Pneumococcal Vaccine: 50+ Years (1 of 2 - PCV) [facility] Start: 1985 Tetanus vaccination Tetanus (Td or Tdap) Booster [facility] Start: 1985 Urine screening for protein Diabetes: Urine Protein Screening [facility] Start: 1985 [facility] Start: 1984 Diabetes: Urine Albumin-Creatinine Ratio for Kidney Health Diabetes: Urine Albumin-Creatinine Ratio for Kidney Health [facility] Start: 1984 Diabetic microalbuminuria test Diabetic microalbuminuria test [place], [place] Start: 1984 Hepatitis C screening [facility] Start: 1984 Tetanus + diphtheria + acellular pertussis vaccine (product) Tdap Booster [facility] Start: 1981 HIV screen HIV screen [place], [place] Start: 1981 HIV screening [facility] Start: 1978 Depression Monitoring Depression Monitoring [facility] Start: 1978 Depression Screening Depression Screening [facility] Start: 1978 [facility] Start: 1977 DTaP/Tdap/Td vaccine (1 - Tdap) DTaP/Tdap/Td vaccine (1 - Tdap) [place] Start: 1976 [object Object] Diabetic foot exam [place] Start: [address] [facility] Start: 1976 Diabetic retinal exam Diabetic retinal exam [place], [place] Start: 1976 Glaucoma screening Diabetes: Retinopathy Screening [facility] Start: 1976 Lipid screen Lipid screen [place], [place] Start: [address] [facility] Start: 1972 Pneumococcal 0-64 years Vaccine (1 of 1 - PPSV23) Pneumococcal 0-64 years Vaccine (1 of 1 - PPSV23) [place] Start: 1972 Pneumococcal Vaccine: Pediatrics (0 to 5 Years) and At-Risk Patients (6 to 64 Years) (1 - PCV) Pneumococcal Vaccine: Pediatrics (0 to 5 Years) and At-Risk Patients (6 to 64 Years) (1 - PCV) [facility] Start: 1972 Pneumococcal Vaccine: Pediatrics (0 to 5 Years) and At-Risk Patients (6 to 64 Years) (1 of 2 - PCV) Pneumococcal Vaccine: Pediatrics (0 to 5 Years) and At-Risk Patients (6 to 64 Years) (1 of 2 - PCV) [facility] Start: 1972 [facility] Start: 1967 MMR Vaccines (1 of 1 - Standard series) MMR Vaccines (1 of 1 - Standard series) [facility] Start: 1967 [facility] Start: 04-25-1967 COVID-19 Vaccine (#1) COVID-19 Vaccine (#1) [facility] Start: 1966 Hepatitis B Vaccines (1 of 3 - 3-dose series) Hepatitis B Vaccines (1 of 3 - 3-dose series) [facility] Start: 1966 Hepatitis C screening Hepatitis C screen [place], [place] Start: [address] [facility] Start: 1966 Medicare Advantage Annual Wellness Visit (AWV) Medicare Advantage Annual Wellness Visit (AWV) [facility] Start: 1966 Screening for malignant neoplasm of colon [facility] Start: 1966 [facility] End: 10-19-2024 Aerobic and Anaerobic Culture with Stain [facility] Work Phone: Comment on above: Release Upon Ordering for 1 Occurrences starting 10/19/2024 Once (Lab) for 1 Occ urrences starting 10/19/2024 until 10/19/2024 Aerobic and Anaerobi c Culture with Stain Aerobic and Anaerobic Culture with Stain Microbiology Routine 10/19/2024 3:[address] [facility] End: 06-14-2019 Anaerobic Culture Anaerobic Culture Microbiology Routine One Time for 1 Occurrences starting 06/14/2019 until 06/14/2019 [facility] Comment on above: One Time for 1 Occurrences starting 05/2019 until 06/14/2019 Bacteria identified in Unspecified specimen by Aerobe culture Culture, Aerobic Bacteria with Gram Stain Microbiology Routine 10/19/2024 3:08 PM [email or web address] Bacteria identified in Unspecified specimen by Anaerobe culture Anaerobic culture Microbiology Routine Acute cholecystitis 10/19/2024 1:52 PM EST [email or web address] Bacteria identified in Unspecified specimen by Anaerobe culture Anaerobic culture Microbiology Routine 10/19/2024 3:08 PM EST [email or web address] End: 08-08-2023 Bacteria identified in Urine by Culture [employer] Work Phone: Comment on above: STAT (Lab) for 1 Occurrences starting until 08/08/2023 End: 07-10-2025 Bacteria identified in Urine by Culture [employer] Work Phone: Comment on above: Once (Lab) for 1 Occurrences starting until 07/10/2025 End: 10-13-2023 [facility] Work Phone: End: 08-08-2023 Blood gases, venous measurement Blood gas, venous (ACH and SBH) Lab STAT Once (Lab) for 1 Occurrences starting 08/08/2023 until 08/08/2023 [employer] Work Phone: Comment on above: Once (Lab) for 1 Occurrences starting until 08/08/2023 End: 12-09-2023 Blood gases, venous measurement Blood gas, venous (ACH and SBH) Lab STAT Once (Lab) for 1 Occurrences starting 12/09/2023 until 12/09/2023 [employer] Work Phone: Comment on above: Once (Lab) for 1 Occurrences starting until 12/09/2023 End: 09-18-2020 CBC CBC Lab Routine Tomorrow AM for 1 Occurrences starting 09/18/2020 until 09/18/2020 [facility] Comment on above: Tomorrow AM for 1 Occurrences starting 1 11/18/2019 until 09/18/2020 End: 09-19-2020 CBC Auto Differential CBC Auto Differential Lab Timed Tomorrow AM for 1 Occurrences starting 09/19/2020 until 09/19/2020 [facility] Comment on above: Tomorrow AM for 1 Occurrences starting 11/19/2019 until 09/19/2020 End: 11-25-2020 CBC Auto Differential CBC Auto Differential Lab Timed Tomorrow AM for 1 Occurrences starting 11/25/2020 until 11/25/2020 [facility] Comment on above: Tomorrow AM for 1 Occurrences starting 0 11/25/2020 until 11/25/2020 End: 09-19-2020 Comprehensive metabolic 2000 panel Comprehensive Metabolic Panel Lab Timed Tomorrow AM for 1 Occurrences starting 09/19/2020 until 09/19/2020 [facility] Comment on above: Tomorrow AM for 1 Occurrences starting 11/19/2019 until 09/19/2020 Comprehensive metabo lic 2000 panel Comprehensive Metabolic Panel Lab Routine Daily until discontinued starting 11/23/2020, 6 completed [facility] Comment on above: Daily until discontinued starting 2020, 6 completed End: 11-25-2020 Comprehensive metabolic 2000 panel Comprehensive Metabolic Panel Lab Timed Tomorrow AM for 1 Occurrences starting 11/25/2020 until 11/25/2020 [facility] Comment on above: Tomorrow AM for 1 Occurrences starting 0 11/25/2020 until 11/25/2020 Comprehensive Metabo lic Panel w/ Reflex to MG Comprehensive Metabolic Panel w/ Reflex to MG Lab Routine Daily until discontinued starting 06/15/2019, 6 completed [facility] Comment on above: Daily until discontinued starting 2018, 6 completed End: 06-26-2019 Culture Blood #1 Culture Blood #1 Microbiology STAT One Time for 1 Occurrences starting 06/26/2019 until 06/26/2019 [facility] Comment on above: One Time for 1 Occurrences starting 06/08 until 06/26/2019 Culture Blood #1 Culture Blood # 1 Microbiology STAT 06/26/2019 10:05 PM EDT [facility] End: 06-26-2019 Culture Blood #2 Culture Blood #2 Microbiology STAT One Time for 1 Occurrences starting 06/26/2019 until 06/26/2019 [facility] Comment on above: One Time for 1 Occurrences starting 06/08 until 06/26/2019 Culture Blood #2 Culture Blood # 2 Microbiology STAT 06/26/2019 10:05 PM EDT [facility] End: 06-14-2019 Culture, Aerobic Bacteria with Gram Stai Culture, Aerobic Bacteria with Gram Stai Microbiology Routine One Time for 1 Occurrences starting 06/14/2019 until 06/14/2019 [facility] Comment on above: One Time for 1 Occurrences starting 05/2019 until 06/14/2019 End: 12-08-2020 Culture, Urine [facility] Comment on above: One Time for 1 Occurrences starting 11/10 until 12/08/2020 Once for 1 Occurrenc es starting 12/08/2020 until 12/08/2020 Culture, Urine Culture, Urine Microbiology STAT 12/08/2020 5:14 PM EST [facility] ECG 12 lead ECG 12 lead CV E CG STAT 10/24/2024 11:04 AM EST [employer] Work Phone: EKG 12 Lead [email or web address] End: 09-18-2020 HbA1c (Bld) [Mass fraction] Hemoglobin A1C Lab Routine One Time for 1 Occurrences starting 09/18/2020 until 09/18/2020 [facility] Comment on above: One Time for 1 Occurrences starting 09/08 until 09/18/2020 Initiate Oxygen Ther apy Protocol Initiate Oxygen Therapy Protocol Respiratory Care Routine Daily until discontinued starting 06/14/2019 [facility] Comment on above: Daily until discontinued starting 2018 End: 06-18-2019 Occult blood x 3, stool Occult blood x 3, stool Lab Routine One Time for 1 Occurrences starting 06/18/2019 until 06/18/2019 [facility] Comment on above: One Time for 1 Occurrences starting 06/08 until 06/18/2019 Oxygen therapy [[facility] [place]] Initiate Oxygen Therapy Protocol Respiratory Care Routine Daily until discontinued starting 09/18/2020 [facility] Comment on above: Daily until discontinued starting 2019 End: 09-17-2020 POCT Glucose POCT Glucose Point of Care Testing Routine Every 30 Min for 4 Occurrences starting 09/17/2020 until 09/17/2020 [facility] Comment on above: Every 30 Min for 4 Occurrences starting 09/17/2020 until 09/17/2020 [facility] above: As Needed until discontinued [...] for 1 Occurrences starting 06/15/2019 until 06/15/2019 [facility] Comment on above: One Time for 1 Occurrences starting 06/2019 until 06/15/2019 End: 06-16-2019 POCT Glucose POCT Glucose Point of Care Testing Routine One Time for 1 Occurrences starting 06/16/2019 until 06/16/2019 [facility] Comment on above: One Time for 1 Occurrences starting 07/2019 until 06/16/2019 Procalcitonin Procalcitonin La b Routine Q48H until discontinued starting 06/14/2019, 3 completed [facility] [place] Comment on above: Q48H until discontinued starting 019, 3 completed End: 11-26-2020 Troponin I.cardiac [Mass/Vol] Troponin Lab Timed One Time for 1 Occurrences starting 11/26/2020 until 11/26/2020 [facility] Comment on above: One Time for 1 Occurrences starting 11/08 until 11/26/2020 Immunizations Immunization Date Immunization Notes Care Provider Argenis lopez 10-19-2024 influenza vaccine tiss-cult subunt (Flucelvax) STANDARD-DOSE injection 0.5 mL Dontrell Woodall DO Work Phone: [facility] 08-18-2023 influenza vac subuni t quadrivalent (Flucelvax) injection 0.5 mL Aaron Gombash DO Work Phone: [facility] 02-26-2022 Covid-19, Pfizer Gra y Top, Do Not Dilute, (Age 12 Y+), Im, L Geronimo Lee MD Work Phone: [facility] 08-12-2021 influenza, injectabl e, quadrivalent, preservative free Geronimo Lee MD Work Phone: [facility] 08-12-2021 Rosaura Vuong O Work Phone: [facility] 08-12-2021 influenza virus vacc ine, unspecified formulation Geronimo Lee MD Work Phone: [facility] 12-04-2020 Pfizer SARS-CoV-2 Vaccination Geronimo Lee MD Work Phone: [facility] 11-13-2020 Pfizer SARS-CoV-2 Vaccination Geronimo Lee MD Work Phone: [facility] 01-14-2019 influenza, injectabl e, quadrivalent, preservative free [facility] [place] 01-14-2019 Influenza, Quadv, 6 mo and older, IM, PF (Flulaval, Fluarix) Justin Walsh [facility] [place] 01-14-2019 Rosaura Vuong O Work Phone: [email or web address] NEGATED: Highlighted row has not occurred!10-09-2023 Influenza, injectable, [facility]in [place] Canine Kidney, preservative free, quadrivalent Rosaura Mustafa DO Work Phone: [facility] Comment on above: Deferred: Contraindi cation - patient received at facility Payers Date Payer Category Payer Medicaid HMO [id number] 2024 Medicare [id number] 2024 Self-pay [id number] 2024 Unknown [id number] 2022 Medicare [id number] 2022 Medicare HMO [id number] 2022 Private Health Insurance [facility] DUAL [facility] DUAL [id number] 2022-Present [phone] [address] [address] [place] [address] Medicare HMO [id number] 2022 Medicaid [place] - [place] [facility] [place] [id number] 2022-Present [address] [place] [address] Medicaid [id number] 2017 Private Health Insurance [facility] DUAL xxxxxxxxx 2017-Present [address] [place] [address] xxxxxxxxx [id number] 1959 Private Health Insurance [id number] Unknown [id number] 2.840.1.570647.3.579.2. 462 Unknown [id number] 2.840.1.904357.3.579.2. 462 Unknown [id number] 2.840.1.360093.3.579.2. 462 Unknown [id number] 2.16840.1.235181.3.579.2. 462 Unknown [id number] 2.840.1.777760.3.579.2. 462 Unknown [id number] 2.840.1.898148.3.579.2. 462 Unknown [id number] 2.16.840.1.927212.3.579.2. 462 Unknown [id number] 2.16.840.1.817269.3.579.2. 462 Unknown [id number] 2.16.840.1.177996.3.579.2. 462 Unknown [id number] 2.16.840.1.889890.3.579.2. 462 Unknown [id number] 2.16.840.1.668796.3.579.2. 462 Unknown [id number] 2.16.840.1.018970.3.579.2. 462 Unknown [id number] 2.16.840.1.425675.3.579.2. 462 Unknown [id number] 2.16.840.1.666457.3.579.2. 462 Unknown [id number] 2.16.840.1.611125.3.579.2. 462 Unknown [id number] 2.16.840.1.594125.3.579.2. 462 Unknown [id number] 2.16.840.1.010262.3.579.2. 462 Social History Date Type Detail Facility Start: 06-26-2019 End: 02-01-2025 Tobacco smoking status GAIS Never smoker [place], [place] Start: 06-26-2019 End: 10-19-[address] [facility] Start: 1965 Sex Assigned At Not on file M [place], [place] Start: 01-02-2020 End: 07-26-2025 Alcohol intake Current non-drinker of alcohol (finding) [place], [place] Start: 09-20-2020 End: 02-01-2025 Tobacco use and exposure Never used [place] Start: 01-30-2023 End: 03-08-2023 Exposure to SARS-CoV-2 (event) Not sure [place], [place] Start: 1965 Sex Assigned At Male W [facility] Tobacco smoking status GAIS Tobacco smoking consumption unknown [employer] Work Phone: Start: 03-08-2023 History SDOH Alcohol Frequency 1 [facility] Start: 03-08-2023 History SDOH Alcohol Std Drinks 0 [facility] Start: 03-08-2023 End: 10-19-[address] [facility] How often to you hav e a drink containing alcohol? Never [facility] How many standard drinks containing alcohol do you have on a typical day? Patient does not drink [facility] Start: 08-27-2022 Gender identity Identifies as male gender (finding) [facility] Within the last year , have you been afraid of your partner or ex-partner? No [facility] Start: 1965 Sex Assigned At [facility] How often to you hav e a drink containing alcohol? Monthly or less [facility] How many standard drinks containing alcohol do you have on a typical day? [address] [facility] Start: 06-08-2022 End: 02-28-2025 Sex Female (finding) [facility] Do you feel stress - tense, restless, nervous, or anxious, or unable to sleep at night because your mind is troubled all the time - these days [OSQ] Only a little [facility] (I/We) worried whether (my/our) food would run out before (I/we) got money to buy more. Never true [facility] How often do you nee d to have someone help you when you read instructions, pamphlets, or other written material from your doctor or pharmacy [SILS] Sometimes [facility] NEGATED: Highlighted rowStart: LAYNE History of tobacco use Passive smoker [facility] Clinical Notes 11-28-2020 to 07-30-2025 Telephone Encounter - Kristi Thomas MA - 07/30/2025 10:21 AM EDTTelephone Encounter - Kristi Thomas MA - 07/30/2025 10:21 AM Esteban Woodruff APRN - DAYANNA - 07/26/2025 11:00 AM EDTAttachments Note Date & Type Note Facility 07-30-2025 Telephone encounter Note Faxed Recent [facility] 07-30-2025 Miscellaneous Notes Faxed Recent Chart note to [employer] [facility] documented [facility] this encounter [facility] 07-27-2025 Telephone encounter Note [facility] 07-26-2025 History of Presen t illness Narrative Images from the original note were not included. [facility] ENDOCRINOLOGY [facility] [address] [place] [address] Dept: [phone] Dept Loc: [phone] Visit type: Reason for Visit: Diabetes Mellitus (Follow up) Assessment and Plan 1. Type 2 diabetes mellitus with hyperglycemia, with long-term current use of insulin ([facility]) 2. Insulin resistance 3. Type 2 diabetes mellitus with peripheral neuropathy ([facility]) 4. Hypertension associated with type 2 diabetes mellitus ([facility]) 5. Type 2 diabetes mellitus with hyperlipidemia ([facility]) ([facility]) Goal A1C = 7% Lab Results Component Value Date HGBA1C 6.8 (A) 04/06/2025 VV per facility no recent A1c Diabetes is not stable variable BG Insulin is necessary for ongoing mgmt. - Pt will make the following changes to regimen: -Humulin U-500 150/130/150 ( if BG less than 90-130 give half dose and eating few CHO or no meal hold U-500) -Humulin U-500 SS 10 units for every 50 above 201 -Lantus 50 units BID started at some point by PCP per records Spoke with DON at facility--let her know we will return DM management to PCP Discussed plan, patient agreed to plan of care --reasons for return-- --difficult insulin regimen--would not recommend Lantus especially if interferes with administration of Humulin U-500. ( There are orders to hold U-500 and a sliding scale). --BG variable but difficult to follow BGL and insulin administration and make safe changes to insulin doses--the above orders make for BG levels that are from 50-500 - patient only seen 3 times in 2 years and 1 was Virtual before today's virtual appointment ( reason for today being virtual OV was patient could not get into transport van) - we do not have up to date labs--can see hsp labs but not routine labs ordered last 2 OV Therefore no need to send future BGLs--thank you Last OV GLP1 and SGLT2i was discussed. Patient has taken GLP1 in past and experienced significant abdominal pain. - found gastroparesis hx +GES 09/2020-- Has history of cholesystitis. Also has past medical history of UTIs and Yeast infections. Will avoid GLP1 or SGLT2i - Recommend FSBS to occur 4 times daily, be recorded, and send to office in weeks for review. - Discussed A1C and BG goals - Encouraged lifestyle modifications of diet and exercise - Encouraged optimal foot care- follow with podiatry if needed - Encouraged following with ophthalmology - Patient counseled on the importance of taking medication as prescribed - Patient counseled on the effects of uncontrolled DM on other organ systems - Patient counseled on risk factors assoicated with diabetes - Patient counseled on detection and treatment of hypoglycemia - Patient instructed to call office if BG >250 or <70 consistently Polyneuropathy: Counseled patient that diabetes blood sugar control may prevent worsening of neuropathy. Jamilah DA SILVA 06/2019. Continued good foot care of left leg and podiatry as needed Microalbuminuria: Counseled patient on need for diabetes control to reduce risk of kidney damage. Labs ordered for monitoring has not been done as ordered last 2 OV. Follows with nephrology HTN: VV today so BP not assessed taking Hydralazine, Carvedilol, Amlodipine, Lisinopril. HLD: on atorvastatin. Labs ordered for monitoring. X 2 last 2 OV but we have received no results Obesity: VV so no current wt, Uncontrolled with BMI of 53.42 noted in record Wt Readings from Last 5 Encounters: 07/10/25 (!) 331 lb (150 kg) 04/06/25 298 lb (135 kg) 02/01/25 298 lb (135 kg) 01/01/25 298 lb (135 kg) 12/21/24 (!) 320 lb (145 kg) Counseled patient on dietary changes for reduced blood sugar and decreased caloric intake. Bedridden so inability for exercise - Pt counseled about these recommendations. Pt voiced understanding. Diagnostic data I reviewed: Outside Documentation: yes Laboratory: yes Radiographic: none Pt was advised of the results. [] Records from outside facility/PCP office to be requested. [] Scripts sent to pharmacy of pt choice. No follow-ups on file. Subjective HPI PCP = Jared Guzman Referring provider[facility] 11/25/2020 Initial [facility] Office visit: 01/24/2022 RAN: 04/06/25 Kemal Schultz DM Onset: 1990 Type of DM: DM2 Patient was identified and seen today via Telehealth by agreement and consent. I used the following Telehealth technology: Audio capability only. Total length of call 40 minutes. The patient was offered and advised video for a more comprehensive evaluation, but the patient declined or was unable to use video. Patient location: Patient Location: Nursing facility. This patient encounter is appropriate and reasonable under the circumstances: unable to get patient unable to get into van for transport . The patient has been advised of [...] that they are currently in the state [facility]. If the patient is a minor, permission has been obtained by the parent or guardian for the patient to receive medical care at this visit. Recent wt changes: Wt Readings from Last 5 Encounters: 07/10/25 (!) 331 lb (150 kg) 04/06/25 298 lb (135 kg) 02/01/25 298 lb (135 kg) 01/01/25 298 lb (135 kg) 12/21/24 (!) 320 lb (145 kg) Pt complaints include: ED 07/10/25 UTI treated with antibiotic Had sonia --inaccurate results and fell off Has order for Dexcom G7--waiting for supply Failed colonoscopy--does not use cpap was told JOHN but stopped using mask States facility helping with diet--less carbs Denies recent illness/steroids Current DM Medications: -Humulin U-500 150/130/150 ( if BG less than 90-130 give half dose and eating few CHO or no meal hold U-500) -Humulin U-500 SS 10 units for every 50 above 201 -Lantus 50 units BID started at some point by PCP per records Injection Sites: rotating--given by nursing staff Taking Medications w/o Missed Doses: No Pt c/o SEs from Medications at today's visit: No Pt voices concerns about cost of medications at today's visit: No Reports HGM 4 times per day Blood Sugar Log present: Yes Log Reviewed w/ pt: Yes Scanned into Media: Yes Hyperglycemia present: Yes Hypoglycemia present: Yes Following Diet for DM: No 3 meals daily Breakfast: scrambled eggs and banana bread Lunch: sandwich, crackers, fruit Dinner: meat, veg, carbs Salad, pakistani or ranch dressing Beverages: Crystal light, Diet soda, water Snack cart: PB cheese crackers, Lays chips, Following Exercise Regimen: No Bedridden--amp rt above knee--unable to be fitted for prothesis Previously Used DM Meds: Yes Dulaglutide Lantus U500 Metformin U100 humalog NPH Complications: Cardiovascular -- Yes HLP Statin Use -- Yes Retinopathy -- No Last MAGUI/Retina Eval: Cataracts worse needs sched - 05/2025 at facility Nephropathy -- No MARY/ARB Use -- Yes Polyneuropathy -- Yes 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 Respiratory: Negative for shortness of breath. Cardiovascular: Positive for leg swelling. Endocrine: Negative for polydipsia and polyuria. Musculoskeletal: Positive for arthralgias. Neurological: Positive for numbness. Psychiatric/Behavioral: Positive for sleep disturbance. An entire ROS was performed at the time of this encounter. Unless noted above in the HPI, the ROS is negative. Allergies[1] Current Medications[2] Medical History[3] Social History Tobacco Use Smoking status: Never Passive exposure: Never Smokeless tobacco: Never Substance Use Topics Alcohol use: No Surgical History[4] Family History[5] Objective There were no vitals taken for this visit. Physical Exam Today's visit was a telehealth visit occurring by phone, therefore physical examination could not be completed. A physical examination will be completed at the time of the patient's next in person office visit. Data Reviewed and Summarized Labs: No components found for: LABA1C No components found for: "EAG" Lab Results Component Value Date NA 139 07/10/2025 K 4.5 07/10/2025 CL 99 07/10/2025 CO2 29 07/10/2025 CO2 23 02/09/2023 BUN 19 07/10/2025 BUN 26 (H) 02/09/2023 CREATININE 0.76 07/10/2025 CREATININE 0.86 02/09/2023 GLUCOSE 322 (H) 07/10/2025 GLUCOSE 433 (H) 02/09/2023 CALCIUM 8.7 07/10/2025 CALCIUM 9.2 02/09/2023 Lab Results Component Value Date CHLPL 125 08/29/2020 Lab Results Component Value Date TRIG 190 08/29/2020 Lab Results Component Value Date HDL 31 (A) 08/29/2020 Lab Results Component Value Date LDLCALC 56 08/29/2020 Lab Results Component Value Date VLDL 38 08/29/2020 No results found for: CHOLHDLRATIO No results found for: [id number] No results found for: "THYROID" Imaging/Testing: I spent total time 40 minutes reviewing previous notes, test results, and face to face with the patient discussing the diagnosis and importance of compliance with the treatment plan as well as documenting on the day of the visit. I have addressed the above chronic illnesses including management, progression, and benefits and side effects of treatment. Portions of the information within this encounter were entered using an electronic dictation system. Best attempts were made to edit/proofread the information prior to note completion. Despite the review of information, some errors may remain. If there are questions related to the information contained within the note please contact the signing provider directly. Electronically signed by Celina Woodruff MSN, COMMUNITY SPORTS COORDINATOR, ACNS-BC, [facility] Clinical Nurse Specialist and Certified Diabetes Care and Hand Silvering Supervisor on 07/27/2025 6:44 PM Dany Woodruff APRN - FINANCIAL OPERATIONS CLERK [1] No Known Allergies [2] Current Outpatient Medications: amLODIPine (Norvasc) 10 MG tablet, Take 1 tablet (10 mg) by mouth daily., Disp: , Rfl: ARIPiprazole (Abilify) 10 MG tablet, Every 24 hours., Disp: , Rfl: aspirin 81 MG EC tablet, Take 1 tablet by mouth daily., Disp: , Rfl: atorvastatin (Lipitor) 10 MG tablet, Take 1 tablet by mouth daily., Disp: , Rfl: bisacodyl (Dulcolax) 5 MG EC tablet, Take 5 mg by mouth Daily as needed for constipation. Do not crush, chew, or split., Disp: , Rfl: Calcium Carbonate (CALCIUM 500 PO), Take 1 tablet by mouth 2 times daily., Disp: , Rfl: carvedilol (Coreg) 25 MG tablet, Take 1 tablet (25 mg) by mouth in the morning and 1 tablet (25 mg) in the evening. Take with meals., Disp: , Rfl: docusate sodium (Colace) 100 MG tablet, Take 100 mg by mouth daily., Disp: , Rfl: ferrous sulfate 325 (65 Fe) MG tablet, Take 1 tablet (325 mg) by mouth daily (with breakfast)., Disp: , Rfl: FLUoxetine (PROzac) 40 MG capsule, Take 40 mg by mouth daily., Disp: , Rfl: gabapentin (Neurontin) 100 MG capsule, Take 100 mg by mouth in the morning and 100 mg before bedtime., Disp: , Rfl: hydrALAZINE (Apresoline) 25 MG tablet, Take 25 mg by mouth 3 times daily., Disp: , Rfl: lactulose 20 GM/30ML oral solution, Take 20 g by mouth 2 times daily., Disp: , Rfl: lisinopril 40 MG tablet, Take 0.5 tablets (20 mg) by mouth daily., Disp: , Rfl: melatonin 10 MG tablet, Take 10 mg by mouth Nightly as needed (insomnia)., Disp: , Rfl: metoclopramide (Reglan) 10 MG tablet, Take 1 tablet (10 mg) by mouth 4 times daily (before meals and nightly)., Disp: , Rfl: miconazole (Micotin) 2 % powder, Apply topically if needed for itching., Disp: , Rfl: pantoprazole (ProtoNix) 40 MG EC tablet, Take 40 mg by mouth., Disp: , Rfl: polyethylene glycol, PEG, 3350 (Glycolax) 17 GM/SCOOP powder, Take 17 g by mouth daily., Disp: , Rfl: senna-docusate sodium (Senokot-S) 8.6-50 MG tablet, Take 1 tablet by mouth daily., Disp: , Rfl: torsemide (Demadex) 10 MG tablet, Take 1 tablet (10 mg) by mouth daily., Disp: , Rfl: triamcinolone (Kenalog) 0.1 % cream, Apply topically daily., Disp: , Rfl: insulin glargine (Lantus) 100 UNIT/ML injection, Inject 50 Units under the skin 2 times daily. (Patient taking differently: Inject 47 Units under the skin 2 times daily.), Disp: 50 mL, Rfl: 3 insulin regular (HumuLIN R) 500 UNIT/ML CONCENTRATED injection, U500 150 before breakfast 130 before lunch and 150 units before dinner PLUS SSI (10 units per 50 over 200) Max Daily Dose 500 units If blood sugar before meal is 90-120, give half dose If less than 90 and patient eating little carbohydrates for meal, hold u500 dose., Disp: 90 mL, Rfl: 3 magnesium hydroxide (Milk of Magnesia) 400 MG/5ML suspension, Take 30 mL by mouth Nightly. (Patient not taking: Reported on 07/26/2025), Disp: , Rfl: Multiple Vitamin (multivitamin) capsule, Take 1 capsule by mouth daily., Disp: , Rfl: [3] Past Medical History: Diagnosis Date Abnormal [...] (HCC) Sleep apnea no CPAP Venous insufficiency [4] Past Surgical History: Procedure Laterality Date ABCESS DRAINAGE Right 09/09/2018 FOOT; [facility] COLONOSCOPY 09/19/[address] Hyde COLONOSCOPY N/A 06/07/2025 Performed by Farhad Chang MD at [facility] ENDOSCOPY DILATION AND CURETTAGE OF UTERUS 05/18/2019 ESOPHAGOGASTRODUODENOSCOPY 06/07/2025 Dr. Chang @ [facility], no specimens HYSTEROSCOPY 12/23/2021 LEG AMPUTATION THROUGH KNEE Right 06/16/2019 UPPER GASTROINTESTINAL ENDOSCOPY N/A 06/29/2023 Dr Sergio Sibley at [facility]; no specimens WISDOM TOOTH EXTRACTION [5] Family History Problem Relation Name Age of Onset No Known Problems Mother No Known Problems Father documented in this encounter [facility] 07-24-2025 Telephone encounter Note Spoke with nurse Bales at the facility. Confirmed the appointment date and time. Agrees to bring recommended documents. The PCP is Dr Jared Guzman [facility] 07-24-2025 Miscellaneous Notes Spoke with nurse Bales at the facility. Confirmed the appointment date and time. Agrees to bring recommended documents. The PCP is Dr Jared Guzman Patient has appointmnet on 07/26/2025. Please contact facility, make sure they are aware of the appointment and that they need to send BGL, MAR and the administration record. Patient on an unusual sliding scale etc that I plan to make major changes to so I need to know exactly what insulin doses he receives and does not receive. Make sure they know they should always send all of the records not just BGL. Please verify also who PCP is.. who else may be managing insulin doses. Thank you Images from the original note were not included. Patient's BGL documented in this encounter [facility] 07-24-2025 Telephone encounter Note Patient has appointmnet on 07/26/2025. Please contact facility, make sure they are aware of the appointment and that they need to send BGL, MAR and the administration record. Patient on an unusual sliding scale etc that I plan to make major changes to so I need to know exactly what insulin doses he receives and does not receive. Make sure they know they should always send all of the records not just BGL. Please verify also who PCP is.. who else may be managing insulin doses. Thank you [facility] [email or web address] Work Phone: 07-23-2025 Telephone encounter Note Images from the original note were not included. Patient's BGL [facility] 07-23-2025 Telephone encounter Note Spoke with PASTORA Barrera. She verbalized and understand below TE. [facility] 07-23-2025 Miscellaneous Notes Spoke with PASTORA Barrera. She verbalized and understand below TE. I reviewed blood sugar log. Blood sugars are extremely variable. These variable blood sugars are dietary related. Changing insulin doses will only cause the risk for hypoglycemia if I increase doses or hyperglycemia if I reduce doses. Blood sugars range from 57 to 339 at the same time of the day from one day to the next. No changes can be made based on this log. Dietary consistency is required before I can make changes. I only see one instance of hypoglycemia therefore, I do not recommend decreasing doses at this time. Thanks Scanned, see in the media tab. Called to the facility, said they will fax it. Left a VM to faxed us the MAR and med list. Images from the original note were not included. Patient's BGL documented in this encounter [facility] 07-20-2025 Telephone encounter Note I reviewed blood sugar log. Blood sugars are extremely variable. These variable blood sugars are dietary related. Changing insulin doses will only cause the risk for hypoglycemia if I increase doses or hyperglycemia if I reduce doses. Blood sugars range from 57 to 339 at the same time of the day from one day to the next. No changes can be made based on this log. Dietary consistency is required before I can make changes. I only see one instance of hypoglycemia therefore, I do not recommend decreasing doses at this time. Thanks [facility] 07-20-2025 Miscellaneous Notes I reviewed blood sugar log. Blood sugars are extremely variable. These variable blood sugars are dietary related. Changing insulin doses will only cause the risk for hypoglycemia if I increase doses or hyperglycemia if I reduce doses. Blood sugars range from 57 to 339 at the same time of the day from one day to the next. No changes can be made based on this log. Dietary consistency is required before I can make changes. I only see one instance of hypoglycemia therefore, I do not recommend decreasing doses at this time. Thanks Scanned, see in the media tab. Called to the facility, said they will fax it. Left a VM to faxed us the MAR and med list. Images from the original note were not included. Patient's BGL documented in this encounter [facility] 07-19-2025 Telephone encounter Note Scanned, see in the media tab. [facility] 07-19-2025 Miscellaneous Notes Scanned, see in the media tab. Called to the facility, said they will fax it. Left a VM to faxed us the MAR and med list. Images from the original note were not included. Patient's BGL documented in this encounter [facility] 07-19-2025 Telephone encounter Note Called to the facility, said they will fax it. [facility] 07-18-2025 Telephone encounter Note Left a VM to faxed us the MAR and med list. [facility] 07-18-2025 Telephone encounter Note Images from the original note were not included. Patient's BGL [facility] 07-11-2025 Note Sinus rhythm Abnormal R-wave progression, late transition Left ventricular hypertrophy Borderline prolonged QT interval Electronically Signed On 07-11-2025 00:56:44 EDT by [facility] 07-11-2025 Note Sinus rhythm Abnormal R-wave progression, late transition Left ventricular hypertrophy Borderline prolonged QT interval Electronically Signed On 07-11-2025 00:56:44 EDT by [facility] 07-11-2025 Note IMPRESSION: Sinus rhythm Abnormal R-wave progression, late transition Left ventricular hypertrophy Borderline prolonged QT interval Electronically Signed On 07-11-2025 00:56:44 EDT by [facility] 07-10-2025 Hospital Discharg e tayla Cole PA-C - 07/10/2025 10:36 PM EDT [...] other concerning symptoms. documented in this encounter [facility] 07-10-2025 Emergency department Note Pt here to the ER via EMS from [facility] c/o headache and nausea for the last couple of days. documented in this encounter [facility] 07-10-2025 Emergency department Triage note Pt here to the ER via EMS from [facility] c/o headache and nausea for the last couple of days. [facility] 07-05-2025 Telephone encounter Note Appointment scheduled on 07/[address] [facility] 07-05-2025 Miscellaneous Notes Appointment scheduled on 07/26 at 11am Images from the original note were not included. Patient's BGL 04/26-07/02/2025 documented in this encounter [facility] 07-04-2025 Telephone encounter Note Images from the original note were not included. Patient's BGL 04/26-07/02/2025 [facility] 07-04-2025 Telephone encounter Note I called the facility to request another copy. [facility] 07-04-2025 Miscellaneous Notes I called the facility to request another copy. The pages are cut off I cannot see the doses completely Images from the original note were not included. Patient's BGL documented in this encounter [facility] 06-29-2025 Telephone encounter Note Downloaded blood glucose log and insulin administration MAR to media tab for the period of 06/08 through 06/[address] [facility] 06-29-2025 Miscellaneous Notes Downloaded blood glucose log and insulin administration MAR to media tab for the period of 06/08 through 06/29 for provider review. Spoke with Susan KIM at the [facility] and requested a new BGL with accompanying [...] BGL by provider. Fax number provided was [phone] Spoke with RN caring for Maria Luisa at the facility regarding need for MAR for 05/29 through 06/18 to be faxed for provider review for use of SSI and any missed doses. She states she will fax the MAR records from 05/29 - 06/18 to [phone]. Please ask for MAR and med list I need to know if SS is ever used. Thank you Images from the original note were not included. Patient's BGL documented in this encounter [facility] 06-29-2025 Telephone encounter Note Spoke with Susan KIM at the [facility] and requested a new BGL with accompanying insulin administration record for 06/08-06/29 for provider review. States she will send it herself. Will watch for information and upload into media tab. [facility] 06-28-2025 Telephone encounter Note The pages are cut off I cannot see the doses completely [facility] Work Phone: 06-27-2025 Telephone encounter Note Images from the original note were not included. Patient's BGL [facility] 06-26-2025 Telephone encounter Note Spoke with Sheri GUILLORY at the facility. She will re-fax the insulin administration records for 05/29-06/18 for comparison with the BG log sent previously. [facility] 06-22-2025 Telephone encounter Note Unfortunately half the document is cut off I cannot see what the Humulin U-500 base dose is, its on 1 page On the second page I can see the sliding scale [facility] Work Phone: 06-22-2025 Telephone encounter Note Scanned faxed MAR from facility into media tab for dates 06/08/25 - 06/22/25 [facility] 06-21-2025 Telephone encounter Note Spoke with Sheri RN at the facility who says she will fax the MAR record for 05/29 through 06/18 for comparison with the BGL by provider. Fax number provided was [phone] [facility] 06-20-2025 Telephone encounter Note Spoke with RN caring for Maria Luisa at the facility regarding need for MAR for 05/29 through 06/18 to be faxed for provider review for use of SSI and any missed doses. She states she will fax the MAR records from 05/29 - 06/18 to [phone]. T [facility] 06-20-2025 Telephone encounter Note Please ask for MAR and med list I need to know if SS is ever used. Thank you [facility] 06-19-2025 Telephone encounter Note Images from the original note were not included. Patient's BGL [facility] 06-07-2025 Telephone encounter Note Images from the original note were not included. Patient's BGL [facility] 06-07-2025 Miscellaneous Notes Images from the original note were not included. Patient's BGL documented in this encounter [facility] 06-07-2025 Nurse Note Spoke with Ninfa at [facility] and updated her about of the patient's procedures being cancelled due to low oxygen levels after the start of the EGD. Advised that per Dr. Chang patient will need cardiac and pulmonary clearance prior to any future endoscopy procedures. See MD report. Skilled transport to arrive at 12:30 to take patient back to [facility]. At 12:55 spoke with transport [employer] [phone] who said it would be another 30 minutes before they would arrive. Patient given shannon crackers and roselia enriqueta for complaints of hunger. [facility] 06-07-2025 Miscellaneous Notes Spoke with Ninfa at [facility] and updated her about of the patient's procedures being cancelled due to low oxygen levels after the start of the EGD. Advised that per Dr. Chang patient will need cardiac and pulmonary clearance prior to any future endoscopy procedures. See MD report. Skilled transport to arrive at 12:30 to take patient back to [facility]. At 12:55 spoke with transport [employer] [phone] who said it would be another 30 minutes before they would arrive. Patient given shannon crackers and roselia enriqueta for complaints of hunger. [facility] Name: Will Jacinto Procedure Date: 06/07/2025 10:37 AM Gender: Female Date of : 1965 Age: 59 Admit Type: Outpatient Note Status: Finalized Endoscopist: Farhad Chang MD, [id number] Procedure: Upper GI endoscopy Indications: h/o anemia, [...] This was discussed with Anesthesia doctor and [employer] who were in the procedure room and [...] by the physician, the nurse and the supervisor welding equipment repairer in the pre-procedure area in the procedure [...] I personally performed the entire procedure. Farhad Chang MD 06/07/2025 11:37:55 AM This report has been signed electronically. Number of Addenda: 0 Note Initiated On: 06/07/2025 10:37 AM documented in this encounter [facility] 06-07-2025 Note Pt saturation starte d falling dropped and procedure was stopped. Procedure aborted for safety. [facility] 06-07-2025 Nurse Note Pt saturation started falling dropped and procedure was stopped. Procedure aborted for safety. [facility] 06-07-2025 Nurse Note Pt saturation started falling dropped and procedure was stopped. Procedure aborted for safety. Spoke with patient's niece Jovana Quesada regarding consent for procedure. She states that patient is able to sign his own consents. documented in this encounter [facility] 06-07-2025 Procedure note [facility] Patient Name: Will Jacinto Procedure Date: 06/07/2025 10:37 AM Gender: Female Date of : 1965 Age: 59 Admit Type: Outpatient Note Status: Finalized Endoscopist: Farhad Chang MD, [id number] Procedure: Upper GI endoscopy Indications: h/o anemia, [...] This was discussed with Anesthesia doctor and [employer] who were in the procedure room and [...] by the physician, the nurse and the supervisor welding equipment repairer in the pre-procedure area in the procedure [...] I personally performed the entire procedure. Farhad Chang MD 06/07/2025 11:37:55 AM This report has been signed electronically. Number of Addenda: 0 Note Initiated On: 06/07/2025 10:[address] [facility] 06-07-2025 Note Spoke with patient's ambrosio Quesada regarding consent for procedure. She states that patient is able to sign his own consents. [facility] 06-07-2025 Nurse Note Spoke with patient's ambrosio Quesada regarding consent for procedure. She states that patient is able to sign his own consents. [facility] 06-07-2025 History and physical note GASTROENTEROLOGY [...] with planned procedure []EGD []Colonoscopy [x]EGD&Colonoscopy Farhad Chang MD Gastroenterology [1] No Known Allergies [2] [...] (HCC) Sleep apnea no CPAP Venous insufficiency [facility] Work Phone: 06-07-2025 Note [facility] 06-07-2025 History and physical note GASTROENTEROLOGY PHYSICIAN [...] with planned procedure []EGD []Colonoscopy [x]EGD&Colonoscopy Farhad Chang MD Gastroenterology [1] No Known Allergies [2] [...] lower leg COVID 12/08/2021 Depression Diabetes mellitus ([facility]) Type II, on insulin Disease of blood and blood forming organ Endometrial carcinoma (HCC) 11/25/2020 Endometrial hyperplasia Foot ulcer ([facility]) Hx of blood clots RLE prior to amputation Hyperlipidemia Hypertension Lymphedema 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 06-04-[address] Farhad Chang EGD/Colonoscopy Date: 06/07/25 Arrival time: 10:00 am Please report to: [facility] [place] [address] [address] Spoke with Nabil at [facility] , confirmed patient will attend scheduled procedure. All questions or concerns addressed. Pt has prep medication on hand. Prep instructions sent via CM [employer] if active. [facility] 06-04-[address] Farhad Chang EGD/Colonoscopy Date: 06/07/25 Arrival time: 10:00 am Please report to: [place] [address] Spoke with Nabil at [facility] , confirmed patient will attend scheduled procedure. All questions or concerns addressed. Pt has prep medication on hand. Prep instructions sent via [employer] if active. Dr. Farhad Chang EGD/Colonoscopy Date: 06/07/25 Arrival time: 10:00 am Please report to: [facility] [place] [address] [address] Spoke with Jose Raul at [facility] , confirmed patient will attend scheduled procedure. All questions or concerns addressed. Pt has prep medication on hand. Prep instructions sent via [employer] if active. Prep instructions faxed to [facility] Attn: Jose Raul. [phone] documented in this encounter [facility] 06-01-2025 Telephone encounter Note I have [...] [] Other () Med rec updated: NA [facility] 06-01-2025 Miscellaneous Notes I have reviewed [...] included. Patient's BGL documented in this encounter [facility] 05-31-2025 Telephone encounter Note Images from the original note were not included. Patient's BGL [facility] 05-31-[address] Farhad Chang EGD/Colonoscopy Date: 06/07/25 Arrival time: 10:00 am Please report to: [place] [address] Spoke with Jose Raul at [facility] [place] , confirmed patient will attend scheduled procedure. All questions or concerns addressed. Pt has prep medication on hand. Prep instructions sent via [employer] if active. Prep instructions faxed to [facility] [place] Attn: Jose Raul. [phone] [facility] 05-18-2025 Telephone encounter Note Called [facility] and talk with nurse, she don't know and transfer to pharmacogeneticist, put me in hold for 25 min and never answer, if they call back please ask what they need . Thank you. [facility] 05-18-2025 Miscellaneous Notes Called penitentiary and talk with nurse, she don't know and transfer to pharmacogeneticist, put me in hold for 25 min and never answer, if they call back please ask what they need . Thank you. Not sure what is being asked. Did not order dietary restrictions, only recommendations. Please advise! Name of caller: Lisa Contact phone number: [phone] Relationship to Patient: Nurse at [facility] Provider: EKLLEY Schultz Practice: Endo Chief Complaint/Reason for Call: Patient is being non compliant with no low carb diet restrictions. They are asking for an order to go back to unrestricted diet. Please advise. Best time of day caller can be reached: Any Patient advised that office/PCP has 24-48 business hours to return their call: Yes documented in this encounter [facility] 05-18-2025 Telephone encounter Note Not sure what is being asked. Did not order dietary restrictions, only recommendations. [facility] 05-14-2025 Telephone encounter Note Please advise! [facility] 05-14-2025 Telephone encounter Note Name of caller: Lisa Contact phone number: [phone] Relationship to Patient: Nurse at [facility] Provider: KELLEY Schultz Practice: [place] Chief Complaint/Reason for Call: Patient is being non compliant with no low carb diet restrictions. They are asking for an order to go back to unrestricted diet. Please advise. Best time of day caller can be reached: Any Patient advised that office/PCP has 24-48 business hours to return their call: Yes [facility] 05-07-2025 Telephone encounter Note Called patient's penitentiary and informed. [facility] 05-07-2025 Miscellaneous Notes Called patient's penitentiary and informed. Continue current doses Recommend future BGLs be sent in 4 week intervals. Or sooner if experiencing hypoglycemia or persistent elevations. Images from the original note were not included. Patient's BGL documented in this encounter [facility] 05-07-2025 Telephone encounter Note Continue current doses Recommend future BGLs be sent in 4 week intervals. Or sooner if experiencing hypoglycemia or persistent elevations. [facility] 05-07-2025 Telephone encounter Note Images from the original note were not included. Patient's BGL [facility] 05-01-2025 Telephone encounter Note Called patient nurse at [facility] and informed. [facility] 05-01-2025 Miscellaneous Notes Called patient nurse at [facility] and informed. Blood glucose log variable. 6/18-6/19 elevated. 6/20-6/23 at goal except for one check. Continue current doses and limit carbs/improve diet. Recommend future BGLs be sent in 4 week intervals. Or sooner if experiencing hypoglycemia or persistent elevations. Images from the original note were not included. Patient's BGL documented in this encounter [facility] 05-01-2025 Telephone encounter Note Blood glucose log variable. 6/18-6/19 elevated. 6/20-6/23 at goal except for one check. Continue current doses and limit carbs/improve diet. Recommend future BGLs be sent in 4 week intervals. Or sooner if experiencing hypoglycemia or persistent elevations. [facility] 04-30-2025 Telephone encounter Note Images from the original note were not included. Patient's BGL [facility] 04-20-2025 Telephone encounter Note Called and relayed the TE below to the pt's nurse. [facility] 04-20-2025 Miscellaneous Notes Called and relayed the TE below to the pt's nurse. Continue current doses. Future blood glucose log's requested to have 2 weeks of data. BGL downloaded in media for your review. Thanks documented in this encounter [facility] 04-19-2025 Miscellaneous Notes Continue current doses. Future blood glucose log's requested to have 2 weeks of data. BGL downloaded in media for your review. Thanks documented in this encounter [facility] 04-19-2025 Telephone encounter Note Continue current doses. Future blood glucose log's requested to have [address] [facility] 04-17-2025 Telephone encounter Note BGL downloaded in media for your review. Thanks [facility] 04-06-2025 Telephone encounter Note Images from the original note were not included. Faxed BG recommendation to [facility] at fax #: [phone]. [facility] 04-06-2025 Miscellaneous Notes Images from the original note were not included. Faxed BG recommendation to [facility] at fax #: [phone]. Good Afternoon, I reviewed blood sugars for Maria Luisa, and they are mostly stable. There are no hypoglycemic events and blood sugars are not in the 300s on this log which is fantastic. No changes recommended at this time. Thanks! Images from the original note were not included. Patient's BGL Name of caller: Jose Raul Contact phone number: [phone] Relationship to Patient: [facility] Provider: JEREMY Stephens CNP Practice: [facility] Chief Complaint/Reason for Call: Jose Raul states transportation did not arrive to [facility] patient for his 03/27/25 9:00 AM follow up today and Jose Raul rescheduled patient for 04/06/25 8:30 AM with Kaushal Schultz PA-C at the [place] office. Please be advised. Best time of day caller can be reached: Any Patient advised that office/PCP has 24-48 business hours to return their call: Yes documented in this encounter [facility] 04-06-2025 History of Presen t illness Narrative Images from the original note were not included. [facility] [address] [place] [address] Dept: [phone] Dept Loc: [phone] Visit type: Established patient Reason for Visit: Follow-up and Diabetes Mellitus Assessment and Plan 1. Type 2 diabetes mellitus with hyperglycemia, with long-term current use of insulin ([facility]) - AMB POC HEMOGLOBIN A1C - Comprehensive metabolic panel - Microalbumin / creatinine urine ratio 2. Type 2 diabetes mellitus with diabetic autonomic neuropathy, with long-term current use of insulin ([facility]) 3. Hypertension associated with type 2 diabetes mellitus ([facility]) 4. Mixed diabetic hyperlipidemia associated with type 2 diabetes mellitus ([facility]) - Lipid panel 5. [...] is Jared Guzman Referring is PCP Previous [employer]: [facility] Initial [facility] office visit: Inpatient [...] fingers, couple slices of pizza Meats, Salad, pakistani or ranch dressing Beverages: Crystal light, Diet soda Snacks: Root beer float, ice cream, popcicles Snack cart: cheese crackers, Lays chips, 8 pm. 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 Best attempts were made to edit/proofread the information prior to note completion. Despite the review of information, some errors may remain. If there are questions related to the information contained within the note please contact the signing physician directly. documented in this encounter [facility] 04-05-2025 Telephone encounter Note Good Afternoon, I reviewed blood sugars for Maria Luisa, and they are mostly stable. There are no hypoglycemic events and blood sugars are not in the 300s on this log which is fantastic. No changes recommended at this time. Thanks! [facility] 04-05-2025 Telephone encounter Note Images from the original note were not included. Patient's BGL [facility] 03-27-2025 Telephone encounter Note Name of caller: Jose Raul Contact phone number: [phone] Relationship to Patient: [facility] Provider: JEREMY Stephens CNP Practice: [facility] Chief Complaint/Reason for Call: Jose Raul states transportation did not arrive to [facility] patient for his 03/27/25 9:00 AM follow up today and Jose Raul rescheduled patient for 04/06/25 8:30 AM with Kaushal Schultz PA-C at the [place] office. Please be advised. Best time of day caller can be reached: Any Patient advised that office/PCP has 24-48 business hours to return their call: Yes [facility] 02-27-2025 Telephone encounter Note Images from the original note were not included. Patient's BGL [facility] 02-27-2025 Miscellaneous Notes Images from the original note were not included. Patient's BGL documented in this encounter [facility] 02-16-2025 Telephone encounter Note Faxed letter to [facility] at fax #: [phone]. [facility] 02-16-2025 Miscellaneous Notes [facility] fax #: [phone]. I reviewed the blood glucose log. Blood [...] included. Patient's BGL documented in this encounter [facility] 02-15-2025 Telephone encounter Note I reviewed the blood glucose log. Blood sugars remain variable. Please increase U500 insulin to 150 before breakfast, 130 before lunch and 150 before dinner. If blood sugar before meal is 90-120, give half dose If less than 90 and patient eating little carbohydrates for meal, hold u500 dose. Thank you, JEREMY Schuster CNP [facility] 02-15-2025 Telephone encounter Note Images from the original note were not included. Patient's BGL [facility] 02-13-2025 Telephone encounter Note Called [facility] to offer cancel the [facility] visit per provider. Visit canceled. [facility] 02-13-2025 Miscellaneous [facility] offer cancel the [facility] visit per provider. Visit canceled. Lung nodule stable-does not need f/up CT reviewed-from Oct. He declined sleep med referral. I do not have to see him. I would recommend that they cancel f/up. Nodule unchanged for 2 yrs.. Nurse from [facility] called to schedule Annual follow up. Follow up scheduled for 03/02/2025. Patient is non weight bearing and uses a deedee. Further question is whether they bring with deedee or ambulance cot. Please advise. [facility] Radiology called stating that CT chest wo IV contrast order will before its completion. Requested new order to be placed. Please advise. documented in this encounter [facility] 02-12-2025 Note Lung nodule stable-d oes not need f/up CT reviewed-from Oct. He declined sleep med referral. I do not have to see him. I would recommend that they cancel f/up. Nodule unchanged for 2 yrs.. [facility] 02-12-2025 Telephone encounter Note Lung nodule stable-does not need f/up CT reviewed-from Oct. He declined sleep med referral. I do not have to see him. I would recommend that they cancel f/up. Nodule unchanged for 2 yrs.. [facility] [email or web address] Work Phone: 02-12-2025 Miscellaneous Notes Lung nodule stable-does not need f/up CT reviewed-from Oct. He declined sleep med referral. I do not have to see him. I would recommend that they cancel f/up. Nodule unchanged for 2 yrs.. Nurse from [facility] called to schedule Annual follow up. Follow up scheduled for 03/02/2025. Patient is non weight bearing and uses a deedee. Further question is whether they bring with deedee or ambulance cot. Please advise. [facility] Radiology called stating that CT chest wo IV contrast order will before its completion. Requested new order to be placed. Please advise. documented in this encounter [facility] 02-12-2025 Telephone encounter Note Nurse from [facility] [place] called to schedule Annual follow up. Follow up scheduled for 03/02/2025. Patient is non weight bearing and uses a deedee. Further question is whether they bring with deedee or ambulance cot. Please advise. [facility] 02-09-2025 Telephone encounter Note Faxed new orders to [facility] at fax #: [phone]. [facility] 02-09-2025 Miscellaneous Notes Faxed new orders to [facility] at fax #: [phone]. I reviewed blood sugars. Blood sugars are [...] included. Patient's BGL documented in this encounter [facility] 02-08-2025 Telephone encounter Note I reviewed [...] 102 Bedtime Blood sugars: 302, 108, 194 [facility] 02-08-2025 Miscellaneous Notes I reviewed blood [...] included. Patient's BGL documented in this encounter [facility] 02-08-2025 Telephone encounter Note [facility] Radiology called stating that CT chest wo IV contrast order will before its completion. Requested new order to be placed. Please advise. [facility] 02-08-2025 Miscellaneous Notes [facility] Radiology called stating that CT chest wo IV contrast order will before its completion. Requested new order to be placed. Please advise. documented in this encounter [facility] 02-07-2025 Telephone encounter Note Images from the original note were not included. Patient's BGL [facility] 02-01-2025 History of Presen t illness Narrative Vascular Surgery Outpatient Consultation Chief Complaint Patient presents with New Patient Dr. Guzman/ venous insufficiency, arterial occlusion? Reason for Consult: PVD Requesting Physician: Dr. Guzman HISTORY OF PRESENTILLNESS: The patient is a 59 y.o. adult with significant medical hx listed below, who is here for evaluation of PAD. Pt is from [facility]. He is in a wheelchair. He states [...] ENDOSCOPY N/A 06/29/2023 Dr Sergio Sibley at [facility]; no specimens WISDOM TOOTH EXTRACTION Current Medications: [...] u500 dose. 01/01/25 Margo Guerrero APRN - [employer] lactulose (Kristalose) 20 g packet Take 20 g by mouth 2 times daily. Historical Provider, lisinopril 40 MG tablet Take 0.5 tablets (20 mg) by mouth daily. 10/16/23 Marcio Moore MD magnesium hydroxide (Milk of Magnesia) 400 MG/5ML suspension Take 30 mL by mouth Nightly. Historical ProviderMD melatonin 10 MG tablet Take 10 mg by mouth Nightly as needed (insomnia). Historical ProviderMD metoclopramide (Reglan) 10 MG tablet [...] 17 g by mouth daily. Historical ProviderMD senna-docusate sodium (Senokot-S) 8.6-50 MG tablet Take [...] file Stress: No Stress Concern Present (10/19/2024) [employer] - Occupational Stress Questionnaire Feeling of Stress : Only a little Social Connections: Unknown (10/19/2024) Social Connection and Isolation Panel [NHANES] Frequency of Communication with Friends and Family: Three times a week Frequency of Social Gatherings with Friends and Family: Once a week Attends Church Services: 1 to 4 times per year [...] This Visit Circulatory PAD (peripheral artery disease) ([facility]) - Primary Relevant Orders Vascular [...] results of PVR documented in this encounter [facility] 01-31-2025 Telephone encounter Note Called [facility] s/w Suma released message as written, she stated that she understood. [facility] 01-31-2025 Miscellaneous Notes Called [facility] s/w Suma released message as written, she [...] included. Patient's BGL documented in this encounter [facility] 01-30-2025 Telephone encounter Note Blood sugars are extremely variable. Breakfast blood sugars can vary between 101-304 Lunch blood sugars between 135-308 Dinner variations between 93-336 Insulin doses can not be modified for riskof hypoglyamcia or hyperglycemia. Limit oral intake to 60 grams of carbs per meal and 15 grams of carbs/snack. [facility] 01-29-2025 Telephone encounter Note Images from the original note were not included. Patient's BGL [facility] 01-19-2025 Telephone encounter Note Faxed orders to [facility] at fax #: [phone]. [facility] 01-19-2025 Miscellaneous Notes Faxed orders to [facility] at fax #: [phone]. I reviewed blood sugar logs. Blood sugars [...] included. Patients BGL documented in this encounter [email or web address] 01-17-2025 Telephone encounter Note I reviewed blood [...] in addition to the current medication doses. [facility] 01-15-2025 Telephone encounter Note Images from the original note were not included. Patients BGL [facility] 01-02-2025 Telephone encounter Note Labs Noted [facility] 01-02-2025 Miscellaneous Notes Labs Noted Images from the original note were not included. Requested BGLs and a recent CMP was received , please advise. documented in this encounter [facility] 01-01-2025 Telephone encounter Note Images from the original note were not included. Requested BGLs and a recent CMP was received , please advise. [facility] 01-01-2025 History of Presen t illness Narrative Images from the original note were not included. [facility] ENDOCRINOLOG[facility] - [place] [address] [address] [facility] [address] [facility] [address] Dept: [phone] Dept Loc: [phone] Visit type: Established patient Reason for Visit: Hospital Follow-up, Diabetes Mellitus, and Hyperglycemia Assessment and Plan 1. Type 2 diabetes mellitus with hyperglycemia, with long-term current use of insulin ([facility]) - Microalbumin / creatinine urine ratio 2. Type 2 diabetes mellitus with diabetic autonomic neuropathy, with long-term current use of insulin ([facility]) 3. S/P AKA (above knee amputation) unilateral, right ([facility]) 4. Mixed hyperlipidemia - Lipid panel 5. Microalbuminuria 6. Essential hypertension 7. Class 3 severe obesity due to excess calories with serious comorbidity and body mass index (BMI) of 45.0 to 49.9 in adult ([facility]) A1c 6.9 as of [...] is Jared Guzman Referring is PCP Previous [employer]: [facility]: [facility] 10/19/[facility]24-10/23/2024 Last office [...] fingers, couple slices of pizza Meats, Salad, pakistani or ranch dressing Beverages: Crystal light, Diet soda Snacks: Root beer float, ice cream, popcicles Snack cart: cheese crackers, Lays chips, 8 pm. 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, RLE Morbidly obese ([facility]) Muscle weakness Osteomyelitis (HCC) Osteomyelitis (HCC) 2019 RLE Other lack of coordination Other specified soft tissue disorders Other symbolic dysfunctions Schizophrenia ([facility]) Sleep apnea no CPAP [...] ENDOSCOPY N/A 06/29/2023 Dr Sergio Sibley at [facility]; no specimens WISDOM TOOTH EXTRACTION Family History [...] found for: CHOLHDLRATIO No results found for: [id number] Imaging/Testing: Portions of the information within this encounter were entered using an electronic dictation system. Best attempts were made to edit/proofread the information prior to note completion. Despite the review of information, some errors may remain. If there are questions related to the information contained within the note please contact the signing physician directly. documented in this encounter [facility] 01-01-2025 Instructions JEREMY Vincent CNP - 01/01/2025 11:00 AM EST Please send Ophthalmology Note once completed this year. Please note if any insulin doses are held on blood log. documented in this encounter [facility] 12-29-2024 Telephone encounter Note Called [facility] s/w Ninfa released message as written, no insulin has been held. [facility] 12-29-2024 Miscellaneous Notes Called [facility]on/w Ninfa released message as written, no insulin [...] Name of caller: Ninfa Contact phone number: [phone] Relationship to Patient: [facility] Provider: KRANTHI Guerrero Practice: [facility] Chief Complaint/Reason for Call: Ninfa states [...] included. Faxed orders from [facility] I have reviewed the pt's glucose [...] included. Patients BGL documented in this encounter [facility] 12-27-2024 Telephone encounter Note Roberto Ocasio, [...] and management of the insulin doses. Thanks! [facility] 12-27-2024 Miscellaneous Notes Roberto Ocasio, I received the BGL Log [...] Name of caller: Ninfa Contact phone number: [phone] Relationship to Patient: [facility] Provider: KRANTHI Guerrero Practice: [facility] Endocr[facility] Chief Complaint/Reason for Call: Ninfa states [...] note were not included. Faxed orders from [facility] to [facility] I have reviewed the pt's glucose [...] included. Patients BGL documented in this encounter [email or web address] 12-22-2024 Telephone encounter Note Please advise. [email or web address] 12-22-2024 Miscellaneous Notes Please advise. Name of caller: Ninfa Contact phone number: [phone] Relationship to Patient: [facility] Provider: KRANTHI Guerrero Practice: [facility] Endocr[facility]ology Chief Complaint/Reason for Call: Ninfa states [...] note were not included. Faxed orders from [facility] to [facility] I have reviewed the pt's glucose [...] included. Patients BGL documented in this encounter [facility] 12-22-2024 Telephone encounter Note Name of caller: Ninfa Contact phone number: [phone] Relationship to Patient: [facility] Provider: KRANTHI Guerrero Practice: [facility] Endocrinology Chief Complaint/Reason for Call: Ninfa states she would like to know at what point should they hold the insulin regular (HumuLIN R) 500 UNIT/ML CONCENTRATED injection for the patient. Please review. Best time of day caller can be reached: any Patient advised that office/PCP has 24-48 business hours to return their call: Yes [facility] 12-22-2024 Telephone encounter Note Images from the original note were not included. Faxed orders from [facility] to [facility] 12-21-2024 History of Presen t illness Narrative Patient was verified by name and . Images from the original note were not included. [facility] GASTROENTEROLOGY - [address] [address] Dept: [phone] Dept Loc: [phone] Visit type: New Reason for Visit: New [...] cholecystitis without obstruction BMI 50.0-59.9, adult (HCC) 59 year old male referred by Rosy Ibarra CNP, re: calculus of gallbladder without cholecystitis without obstruction. Patient hospitalized 10/18/2024-10/23/2024 @ [facility] 2/2 acute cholecystitis. Blood sugars uncontrolled and [...] patient's first colonoscopy --referral previously placed to [facility] Advised patient to call office with [...] right AKA. Patient was hospitalized 10/18/2024-10/23/2024 at [facility] related to acute cholecystitis. Due to medical [...] to surgical intervention. He was referred to [facility]. Presently denies nausea and vomiting. Having [...] 10/18/2024 Priority: Medium NOY (acute kidney injury) ([facility]) 12/31/2023 Priority: Medium Acinetobacter lwoffi infection 10/09/2023 Priority: Medium Bacteremia due to Gram-negative bacteria 10/09/2023 Priority: Medium Hypoglycemia due to insulin 10/07/2023 Priority: Medium Hypothermia, not associated with low environmental temperature 10/07/2023 Priority: Medium Sepsis without acute organ dysfunction ([facility]) 10/07/2023 Priority: Medium Abdominal pain 08/19/2023 Priority: Medium Upper abdominal pain 08/17/2023 Priority: Medium Chest pain 06/28/2023 Priority: Medium Chest pain, unspecified type 06/28/2023 Priority: Medium Hypertension 11/25/2020 Priority: Medium Hyperlipidemia 10/07/2021 Thickened endometrium 11/26/2020 Complex endometrial hyperplasia with atypia 11/26/2020 Diabetic gastroparesis associated with type 2 diabetes mellitus ([facility]) ([facility]) 11/26/2020 Endometrial carcinoma ([facility]) 11/25/2020 Endometrial hyperplasia 11/25/2020 Diabetic hyperosmolar non-ketotic state ([facility]) ([facility]) 11/25/2020 Chronic acquired lymphedema 11/25/2020 Chronic osteomyelitis ([facility]) ([facility]) 11/25/2020 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 ([facility]) 11/25/2020 Type 2 diabetes mellitus with hyperglycemia, with long-term current use of insulin ([facility]) 11/25/2020 Hyperglycemia 11/25/2020 S/P AKA (above knee amputation) unilateral, right ([facility]) 11/25/2020 Ileus ([facility]) ([facility]) 09/27/2020 Esophagitis 09/22/2020 Nausea and vomiting 09/22/2020 Diabetic foot infection ([facility]) 06/14/2019 Post-menopausal bleeding 05/16/2019 Cellulitis 01/17/2019 Class 3 severe obesity due to excess calories with serious comorbidity and body mass index (BMI) of 60.0 to 69.9 in adult ([facility]) 01/13/2019 Left leg cellulitis [...] negative sonographic Caldwell's sign reported by the mechanical technologist. Pancreas: Largely obscured by bowel gas. [...] Physician MD MUNIZ REYNALDO C. Accession Number [id number] CPT4 Codes 61214 () Reason For Exam nausea, diabetees Report [...] 4:03 PM 12/21/24 documented in this encounter [facility] 12-21-2024 Instructions JEREMY Kinsey CNP - 12/21/2024 8:30 AM EST --Please call office with any questions or concerns! [phone] --Schedule EGD (upper endoscopy) and colonoscopy for [...] be sent through Care Everywhere.Upper GI Endoscopy ([place])Colonoscopy ([place])documented in this encounter [email or web address] 12-21-2024 Telephone encounter Note I have reviewed [...] will assist with stabilizing blood sugars. Thanks! [facility] 12-20-2024 Telephone encounter Note Images from the original note were not included. Patients BGL [facility] 12-07-2024 History of Presen t illness Narrative Images from the original note were not included. Lilo Rizo MD General Surgery Outpatient Post-Operative/Follow Up Office Note Patient ID: Will Jacinto [id number] y.o. 1965 Interval History 12/07/24: Patient [...] Acquired absence of other toe(s), unspecified side ([facility]) Anxiety disorder Bipolar 1 disorder ([facility]) Blood circulation, collateral Cellulitis chronic L lower leg COVID 12/08/2021 Depression Diabetes mellitus ([facility]) Type II, on insulin Disease of blood and blood forming organ Endometrial carcinoma ([facility]) 11/25/2020 Endometrial hyperplasia Foot ulcer ([facility]) Hx of blood clots RLE prior to amputation Hyperlipidemia Hypertension Lymphedema 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, RLE Morbidly obese ([facility]) Muscle weakness Osteomyelitis ([facility]) Osteomyelitis ([facility]) 2019 RLE Other lack of coordination Other specified soft tissue disorders Other symbolic dysfunctions Schizophrenia ([facility]) Sleep apnea no CPAP Venous insufficiency Past Surgical History: Procedure Laterality Date ABCESS DRAINAGE Right 09/09/2018 FOOT; [facility] COLONOSCOPY 09/19/[address] Hyde DILATION AND CURETTAGE OF UTERUS 05/18/2019 HYSTEROSCOPY 12/23/2021 LEG AMPUTATION THROUGH KNEE Right 06/16/2019 UPPER GASTROINTESTINAL ENDOSCOPY N/A 06/29/2023 Dr Sergio Sibley at [facility]; no specimens WISDOM TOOTH EXTRACTION Medications Prior [...] crush, chew, or split. Yes Historical Provider, MD carvedilol (Coreg) 25 MG tablet Take 1 [...] mg) by mouth daily. 10/16/23 Yes Marcio Moore MD magnesium hydroxide (Milk of Magnesia) 400 [...] up to 7 days. 12/01/24 12/08/24 Yes Rosy Ibarra APRN - KRANTHI pantoprazole (ProtoNix) 40 MG EC tablet Take [...] No Stress: No Stress Concern Present (10/19/2024) [employer] - Occupational Stress Questionnaire Feeling of Stress : Only a little Social Connections: Unknown (10/19/2024) Social Connection and Isolation Panel [NHANES] Frequency of Communication with Friends and Family: Three times a week Frequency of Social Gatherings with Friends and Family: Once a week Attends Church Services: 1 to 4 times per year [...] Behavior normal. Orders Placed This Encounter Procedures [facility] Program ASSESSMENT AND PLAN: This [...] education and counseling. documented in this encounter [facility] 12-06-2024 Telephone encounter Note LVM with [facility]iary(primary number in account) for ticket scheduler to call back to schedule follow up appointment with Herber. [facility] 12-06-2024 Miscellaneous Notes LVM with penitentiary(primary number in account) for ticket scheduler to call back to schedule follow [...] sooner with provider. documented in this encounter [facility] 12-01-[address] [facility] 12-01-2024 Telephone encounter Note Images from the original note were not included. Faxed new insulin order to [facility] at fax #: [phone]. [facility] 12-01-2024 Miscellaneous Notes Images from the original note were not included. Faxed new insulin order to [facility] at fax #: [phone]. I have reviewed the pt's glucose log. [...] included. Patient's BGL documented in this encounter [facility] 12-01-2024 Note IMPRESSION: Sinus rhythm Abnormal R-wave progression, late transition Left ventricular hypertrophy Borderline prolonged QT interval Electronically Signed On 12-01-2024 00:32:34 EST by Aaron Burgos [facility] 11-30-2024 Note [facility] 11-28-2024 Telephone encounter Note I have reviewed the pt's glucose log. Based on interpretation of the FSBS data I recommend the following changes to the pt's antihyperglycemic regimen: Please increase Humulin u500 to 140 units three times daily before meals. Med rec updated: Yes [facility] 11-28-2024 Miscellaneous Notes I have reviewed [...] included. Patient's BGL documented in this encounter [email or web address] 11-28-2024 Telephone encounter Note Images from the original note were not included. Patients BGL [email or web address] 11-22-2024 Telephone encounter Note I have reviewed [...] until we ensure blood sugars remain stable. [email or web address] 11-22-2024 Telephone encounter Note Unable to reach [facility] at [facility] to reschedule appt with Makayla Guerrero on 11/27/2024. Called SNF again at [phone] and spoke to Quiana again. Rescheduled pt to 01/01/25 and per Suri Araya will call if there is a problem with this date/time. [facility] 11-22-2024 Miscellaneous Notes Unable to reach Suri at [facility] to reschedule appt with Makayla Guerrero on 11/27/2024. Called SNF again at [phone] and spoke to Quiana again. Rescheduled pt to 01/01/25 and per Suri Araya will call if there is a problem with this date/time. documented in this encounter [facility] 11-21-2024 Telephone encounter Note Called the [facility] and spoke with the pts nurse nabil, [...] new logs in two weeks, she understood. [facility] 11-21-2024 Miscellaneous Notes Called the penitentiary and spoke with the pts nurse nabil, [...] included. Patient's BGL documented in this encounter [facility] 11-21-2024 Telephone encounter Note Images from the original note were not included. Patient's BGL [facility] 11-20-2024 Telephone encounter Note Addendum completed. Sending message to provider as FYI, please indicate if/when patient needs fu with provider to review. Will forward to staff to schedule if indicated. Thank you. [facility] 11-20-2024 Miscellaneous Notes Addendum completed. Sending [...] sooner with provider. documented in this encounter [facility] 11-19-2024 Telephone encounter Note I have reviewed the pt's glucose log. Based on interpretation of the FSBS data I recommend the following changes to the pt's antihyperglycemic regimen: Blood sugars are variable with 5 doses recently held. Can we clarify if patient has been sick or had decreased appetite that caused recent change in insulin needs? [facility] Work Phone: 11-19-2024 Miscellaneous Notes I have [...] included. Patient's BGL documented in this encounter [facility] 11-15-2024 Telephone encounter Note Images from the original note were not included. Patient's BGL [facility] 11-14-2024 Telephone encounter Note Noted. Request emailed to radiology team. [facility] 11-14-2024 Miscellaneous Notes Noted. Request emailed to [...] sooner with provider. documented in this encounter [facility] 11-14-2024 History of Presen t illness Narrative Images from the original note were not included. Asuncion BERNAL General Surgery Outpatient Post-Operative/Follow Up Office Note Patient ID: Will Jacinto [id number] y.o. 1965 This is a 59 [...] soft tissue disorders Other symbolic dysfunctions Schizophrenia ([facility]) Sleep apnea no CPAP Venous insufficiency Past Surgical History: Procedure Laterality Date ABCESS DRAINAGE Right 09/09/2018 FOOT; [facility] COLONOSCOPY 09/19/[address] Hyde DILATION AND CURETTAGE OF UTERUS 05/18/2019 HYSTEROSCOPY 12/23/2021 LEG AMPUTATION THROUGH KNEE Right 06/16/2019 UPPER GASTROINTESTINAL ENDOSCOPY N/A 06/29/2023 Dr Sergio Sibley at [facility]; no specimens WISDOM TOOTH EXTRACTION Medications Prior [...] and 100 mg before bedtime. Historical ProviderMD hydrALAZINE (Apresoline) 25 MG tablet Take 25 mg by mouth 3 times daily. Historical ProviderMD insulin glargine (Lantus) 100 UNIT/ML injection Inject 47 Units under the skin 2 times daily. Historical ProviderMD insulin regular (HumuLIN R) 500 UNIT/ML CONCENTRATED injection Inject 130 Units under the skin 3 times daily. Historical Provider, lisinopril 40 MG tablet Take 0.5 tablets (20 mg) by mouth daily. Patient not taking: Reported on 02/11/2024 10/16/23 Marcio Moore MD magnesium hydroxide (Milk of Magnesia) 400 [...] Take 1 capsule by mouth daily. Historical ProviderMD pantoprazole (ProtoNix) 40 MG EC tablet Take 40 mg by mouth. 11/26/20 Historical ProviderMD polyethylene glycol, PEG, 3350 (Glycolax) 17 GM/SCOOP powder Take 17 g by mouth daily. Historical ProviderMD torsemide (Demadex) 10 MG tablet Take 1 [...] No Stress: No Stress Concern Present (10/19/2024) [employer] - Occupational Stress Questionnaire Feeling of Stress : Only a little Social Connections: Unknown (10/19/2024) Social Connection and Isolation Panel [NHANES] Frequency of Communication with Friends and Family: Three times a week Frequency of Social Gatherings with Friends and Family: Once a week Attends Church Services: 1 to 4 times per year [...] 11/14/2024 12:47 PM documented in this encounter [facility] 11-13-2024 Telephone encounter Note Patient appeared [...] and/or have scheduled follow-up sooner with provider. [facility] 11-12-2024 Hospital Discharg e instructions JEREMY Hilliard CNP - 11/12/2024 11:44 PM EST The drain coming out after 3+ weeks is okay at this time CT and labs are unremarkable patient can follow-up in the surgery office as an outpatient. The following attachments cannot be sent through Care Everywhere.Gallstones Discharge Instructions ([place])documented in this encounter [facility] 11-12-2024 Emergency department Note Emergency Department Encounter [facility] ED Patient: Will Jacinto : 1965 Date of Evaluation: 11/12/2024 ED Supervising Physician: Virgil Escobar MD I personally evaluated Will Jacinto [...] contact the dictating provider for clarification.) Virgil Escobar MD [place] [facility] Virgil Escobar MD 11/12/242219 documented in this encounter [facility] 11-12-2024 Physician Emergency department Note Emergency Department Encounter [facility] ED Patient: Will Jacinto : 1965 Date of Evaluation: 11/12/2024 ED Supervising Physician: Virgil Escobar MD I personally evaluated Will Jacinto [...] contact the dictating provider for clarification.) Virgil Escobar MD Acute Care [facility] Virgil Escobar MD 11/12/242219 [facility] [place] Phone: 11-10-2024 History of Presen t illness Narrative Images from the original note were not included. Asuncion Valencia APRN-[facility] General Surgery Outpatient Post-Operative/Follow Up Office Note Patient ID: Will Jacinto [id number] y.o. 1965 This is a 59 [...] Acquired absence of other toe(s), unspecified side ([facility]) Anxiety disorder Bipolar 1 disorder ([facility]) Blood circulation, collateral Cellulitis chronic L lower leg COVID 12/08/2021 Depression Diabetes mellitus ([facility]) Type II, on insulin Disease of blood and blood forming organ Endometrial carcinoma ([facility]) 11/25/2020 Endometrial hyperplasia Foot ulcer ([facility]) Hx of blood clots RLE prior to amputation Hyperlipidemia Hypertension Lymphedema 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, RLE Morbidly obese ([facility]) Muscle weakness Osteomyelitis ([facility]) Osteomyelitis ([facility]) 2019 RLE Other lack of coordination Other specified soft tissue disorders Other symbolic dysfunctions Schizophrenia ([facility]) Sleep apnea no CPAP Venous insufficiency Past Surgical History: Procedure Laterality Date ABCESS DRAINAGE Right 09/09/2018 FOOT; ACH COLONOSCOPY 09/19/[address] Hyde DILATION AND CURETTAGE OF UTERUS 05/18/2019 HYSTEROSCOPY 12/23/2021 LEG AMPUTATION THROUGH KNEE Right 06/16/2019 UPPER GASTROINTESTINAL ENDOSCOPY N/A 06/29/2023 Dr Sergio Sibley at [facility]; no specimens WISDOM TOOTH EXTRACTION Medications Prior [...] and 100 mg before bedtime. Historical ProviderMD hydrALAZINE (Apresoline) 25 MG tablet Take 25 [...] not taking: Reported on 02/11/2024 10/16/23 Marcio Moore MD magnesium hydroxide (Milk of Magnesia) 400 [...] Take 1 capsule by mouth daily. Historical ProviderMD pantoprazole (ProtoNix) 40 MG EC [...] No Stress: No Stress Concern Present (10/19/2024) [employer] - Occupational Stress Questionnaire Feeling of Stress : Only a little Social Connections: Unknown (10/19/2024) Social Connection and Isolation Panel [NHANES] Frequency of Communication with Friends and Family: Three times a week Frequency of Social Gatherings with Friends and Family: Once a week Attends Church Services: 1 to 4 times per year [...] after completion of imaging and follow up JERMEY Chaves CNP 11/10/2024 11:32 AM documented in this encounter [facility] [email or web address] 10-30-2024 Telephone encounter Note Released message to nurse [facility] 10-30-2024 Miscellaneous Notes Released message to nurse BG log reviewed. No changes to current meds. Send log as needed; otherwise, has appt 11/27 with Ana Maria. Please remind SNF to send BGL and MAR to visit. Thank you! Images from the original note were not included. Patient's BGL documented in this encounter [facility] 10-30-2024 Telephone encounter Note BG log reviewed. No changes to current meds. Send log as needed; otherwise, has appt 11/27 with Ana Maria. Please remind SNF to send BGL and MAR to visit. Thank you! [facility] 10-30-2024 Telephone encounter Note Images from the original note were not included. Patient's BGL [facility] 10-24-2024 Telephone encounter Note Shayy called back we scheduled an appointment with Ana Maria on 11/27/24 and another one on 03/27/[address] [facility] 10-24-2024 Miscellaneous Notes Shayy called back we scheduled an appointment with Ana Maria on 11/27/24 and another one on 03/27/25 with Thalia. Called [facility] at [phone] and spoke to Quiana who states that I need to to speak to Suri, and she is currently out of the office. Per Quiana, she will have [facility] call back to schedule. Direct phone number to the [employer] office was given. Needs to be seen for follow up with any provider, will need ECF to arrange transportation so that patient can be seen in office ans no longer available to manage over the phone documented in this encounter [facility] 10-24-2024 Hospital Discharg e instructions Baldev Ortiz MD - 10/24/2024 12:53 PM EST Please return to the Emergency Room if you have dizziness, shortness of breath, falls, new or worsening symptoms. documented in this encounter [facility] 10-24-2024 Emergency department Note Pt placed on bedpan, urine sample collected and sent to lab. [facility] 10-24-2024 Emergency department Note Pt placed [...] Pt is DNR-CCA. documented in this encounter [facility] 10-24-2024 Emergency department Note Pt provided with sandwich and pop, ok per Dr Mixon [facility] 10-24-2024 Emergency department Note Per pt he is not having any blood in his urine, his gallbladder drain is newly placed (3 days ago), pt states the drainage has been the same in color since it was placed, denies pain, denies drainage to site. Pt states has no complaints other than concern for low BG and feeling cold. [facility] 10-24-2024 Emergency department Note Pt arrives by [facility] for blood in urine and change in mental status. Pt has chronic lewis and has blood present. BP elevated, BG 154 (low per SNF because pt is normally in 300 range). Pt is DNR-CCA. [facility] 10-24-2024 Telephone encounter Note Called [facility] at [phone] and spoke to Quiana who states that I need to to speak to [facility], and she is currently out of the office. Per Quiana, she will have [facility] call back to schedule. Direct phone number to the [employer] office was given. [facility] 10-23-2024 Nurse Note Report called to Nabil GUILLORY at [facility]. [facility] 10-23-2024 Nurse Note Report called to Nabil GUILLORY at [facility]. Report called to [address] [place] [address] for transfer. Notified Lisa Lopes APRN and Dr. Thomas regarding patients BS. New orders placed. documented in this encounter [facility] 10-23-2024 Note Formatting of this n ote might be different from the original. Discharge med list transmitted to return back to [facility] via [facility] per TCC request. [facility] 10-23-2024 Note Formatting of this n ote might be different from the original. Discharge med list transmitted to return back to [facility] via [facility] per TCC request. [facility] 10-23-2024 Miscellaneous Notes Discharge med list transmitted to return back to [facility] via [facility] per TCC request. Asked by [facility] to set transport to [facility]. The BLS Vehicle you requested for Will Batista in unit/room [place] [id number] on 10/23/2024 is scheduled to arrive at 2:30pm EST! [facility] is handling this ride and you can contact them at . Pt, nurse, unit sec, TCC, and facility informed of time. DC orders in and signed by Dr. Thomas. [facility] set up transport. [facility] tasked in [facility] to send DC info [facility] . DC back to F in stable [...] Maintained or Improved Outcome: Progressing Did update [facility] via [facility] that attending would like patient to return to their facility tomorrow on po antibiotics. Will have TCC coverage for tomorrow follow for reply. Patient is fpc at the facility and does not need [...] return unless he goes back as skilled. wireless development manager to follow and assist as needed. Length of Stay (Days): 2 GMLOS: 3.5 Problem: Potential for Compromised Skin Integrity Goal: Skin Integrity is Maintained or Improved Outcome: Progressing Problem: Urinary Incontinence Goal: Perineal skin integrity is maintained or improved Outcome: Progressing Sent updated notes to return back to [facility] via [facility] per TCC request. Await review and response regarding ability to accept. TCC notified. Referral placed to return back to [facility] via [facility] per TCC request. Await review and response regarding ability to accept. TCC notified. Care Managment Initial Assessment Date: 10/19/2024 Patient Name: Will Jacinto : 1965 Patient Information Source of Information: Patient Cognition/Language: WFL - Within Functional Limits Permission given to speak with patient telephone services sales representative/caregiver as indicated: Confirmation of Payer with patient/family: Payer Name: : Confirmation of Primary Care Physician: Primary Caregiver: Other (Comment) (Facility staff) If assistance needed, confirmed caregiver ready, willing and able to care for patient at discharge: Confirmed with: Living Arrangements Current Residence: Number of Floors Number of Entry Steps: Bed/Bath Levels: Facility: [facility]: [facility] ADLS. Requires a deedee for transfers. Tasked [employer] to send return referral to [facility]. Gen surg and ID following. Endocrinology consulted. Receiving IV ATB and fluids. NPO at this time. Pt to have biliary drain placed today. Fecal occult stool positive. Discharge plan will be to return to [facility] once medically ready. wireless development manager to follow and assist as needed. [...] improved Outcome: Progressing documented in this encounter [facility] 10-23-2024 Note Formatting of this n ote might be different from the original. Asked by [facility] to set transport to [facility]. The S Vehicle you requested for Will Batista in unit/room [facility] [id number] on 10/23/2024 is scheduled to arrive at 2:30pm EST! [facility] is handling this ride and you can contact them at . Pt, nurse, unit sec, TCC, and facility informed of time. [facility] 10-23-2024 Note Formatting of this n ote might be different from the original. Asked by [facility] to set transport to [facility]. The S Vehicle you requested for Will Batista in unit/room [facility] [id number] on 10/23/2024 is scheduled to arrive at 2:30pm EST! [facility] is handling this ride and you can contact them at . Pt, nurse, unit sec, TCC, and facility informed of time. [facility] 10-23-2024 History of Presen t illness [...] from the original note were not included. [facility] - Infectious Diseases Attending [...] and Affect: Mood normal. Labs: Recent Labs 10/21/2413610/22/245310/23/24 012 NA 135* 139 137 K 3.3* 3.3* 3.4* CL 100 104 101 CO2 23 24 29 BUN 48* 35* 21 CREATININE 1.35 1.05 0.84 GLUCOSE 112* 148* 214* CALCIUM 8.8 8.7 8.7 PROT 6.6 6.4 6.1* BILITOT 0.3 0.3 0.3 ALKPHOS 135 127 115 AST 20 19 18 ALT 42 32 27 Recent Labs 10/21/2413610/22/245310/23/24126 WBC 11.9* 9.7 7.5 HGB 10.2* 9.7* 9.5* HCT 31.6 30.0 29.9 PLT 396 419 407 LYMPHOPCT 15.3 15.9 24.6 MONOPCT 6.8 8.2 10.6 BASOPCT 0.6 0.5 0.7 NEUTROABS 8.9* 7.1 4.5 Crp 261.6 Micro: No results for input(s): "COVID19" in the last 72 hours. 10/19/2024 1508 10/19/2024 1511 Aerobic and Anaerobic Culture with Stain [[id number]] Bile In process Component Value No component results 10/19/2024 1508 10/19/2024 2159 Culture, Aerobic Bacteria with Gram Stain [[id number]] Bile Preliminary result Component Value Culture Culture in progress P Gram Stain Result Few Polymorphonuclear leukocytes per low power field P No organisms seen P 10/19/2024 1508 10/19/2024 1511 Anaerobic culture [[id number]] Bile In process Component Value No component results 10/19/2024 1352 10/20/2024 1147 Culture, Aerobic Bacteria with Gram Stain [[id number]] Bile from Gallbladder Preliminary result Component Value Culture No growth at 18-24 hours P Gram Stain Result Few Polymorphonuclear leukocytes per low power field P No organisms seen P 10/19/2024 1352 10/19/2024 1415 Aerobic and Anaerobic Culture with Stain [[id number]] Bile from Gallbladder In process Component Value No component results 10/19/2024 1352 10/19/2024 1415 Anaerobic culture [[id number]] Bile from Gallbladder In process Component Value No component results 10/19/2024 0155 10/19/2024 0207 Occult blood, stool [[id number]] (Abnormal) Stool from Per Rectum Final result Component Value Fecal occult blood Positive Abnormal 10/18/2024 2343 10/20/2024 0735 Urine culture [[id number]] Urine, Clean Catch Final result Component Value Urine Culture Insignificant growth based on current clinical guidelines Lines: PIV site ok Radiography/Echo/Other: US guided percutaneous peritoneal or retroperitoneal fluid collection drainage [[id number]] Collected: 10/19/241420 Order Status: Completed Updated: 10/19/241422 [...] advanced. Subcutaneous tract was dilated. An 8 Bahraini drainage catheter advanced over the wire. The catheter was attached to a bag. A dressing was applied. Impression: Successful placement of a drainage catheter into the gallbladder using ultrasound guidance. Report Dictated on Electronically Signed By: Alfredito Baumann MD Electronically Signed Date/Time: 10/19/2024 2:22 PM EST US abdomen limited [[id number]] Collected: 10/18/242011 Order Status: Completed Updated: 10/18/242021 [...] PM EST CT abdomen pelvis w contrast [[id number]] Collected: 10/18/241904 Order Status: Completed Updated: 10/18/241913 [...] chest angiogram w and/or wo IV contrast [[id number]] Collected: 10/18/241856 Order Status: Completed Updated: 10/18/241912 [...] from the original note were not included. [facility] Wound Care Progress Note Will [...] Acquired absence of other toe(s), unspecified side ([facility]) Anxiety disorder Bipolar 1 disorder ([facility]) Blood circulation, collateral Cellulitis chronic L lower leg COVID 12/08/2021 Depression Diabetes mellitus ([facility]) Type II, on insulin Disease of blood and blood forming organ Endometrial carcinoma ([facility]) 11/25/2020 Endometrial hyperplasia Foot ulcer ([facility]) Hx of blood clots RLE prior to amputation Hyperlipidemia Hypertension Lymphedema 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, RLE Morbidly obese ([facility]) Muscle weakness Osteomyelitis ([facility]) Osteomyelitis ([facility]) 2019 RLE Other lack of coordination Other specified soft tissue disorders Other symbolic dysfunctions Schizophrenia ([facility]) Sleep apnea no CPAP Venous insufficiency PAST SURGICAL HISTORY Past Surgical History: Procedure Laterality Date ABCESS DRAINAGE Right 09/09/2018 FOOT; ACH COLONOSCOPY 09/19/[address] Hyde DILATION AND CURETTAGE OF UTERUS 05/18/2019 HYSTEROSCOPY 12/23/2021 LEG AMPUTATION THROUGH KNEE Right 06/16/2019 UPPER GASTROINTESTINAL ENDOSCOPY N/A 06/29/2023 Dr Sergio Sibley at [facility]; no specimens WISDOM TOOTH EXTRACTION FAMILY HISTORY [...] loss Fluid Accumulation: Moderate to Severe Extremities Camp Manager Strength: Not Performed Nutrition Assessment: Pt is [...] most recently 6.9% (10/19/24). Pt resides at [facility]. It seems that pt has little control [...] (kg): 53 kg Total Energy Requirements (kcals/day): 2607-7953 kcals (28-32 kcals/kg) Weight Used for Protein [...] lb) (02/11/24) % Weight Change (Calculated): 15.2 Dodge Body Weight (lbs) (Calculated): 130 lbs Dodge Body Weight (Kg) (Calculated): 59 kg % Dodge Body Weight (Calculated): 256.9 % BMI (kg/m2) (Calculated): 53.9 Weight Adjustment For: Amputation % Weight Adjustment: 10.1 - AKA Total Adjusted Percentage (Calculated): 10.1 Adjusted Dodge Body Weight (lbs) (Calculated): 116.9 lbs Adjusted Dodge Body Weight (kg) (Calculated): 53.14 kg Adjusted [...] Continue current diet Fernanda Chappell RD Contact: *[phone] or via Secure Chat Hospitalist Progress Note 10/22/2024 Subjective: Admit Date: 10/18/2024 PCP: Jared Guzman Room#: [id number] A BRIEF HOSPITAL COURSE: Admitted for abdominal [...] side (HCC) Anxiety disorder Bipolar 1 disorder ([facility]) Blood circulation, collateral Cellulitis chronic L lower leg COVID 12/08/2021 Depression Diabetes mellitus ([facility]) Type II, on insulin Disease of blood and blood forming organ Endometrial carcinoma ([facility]) 11/25/2020 Endometrial hyperplasia Foot ulcer ([facility]) Hx of blood clots RLE prior to amputation Hyperlipidemia Hypertension Lymphedema 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, RLE Morbidly obese (HCC) Muscle weakness Osteomyelitis (HCC) Osteomyelitis (HCC) 2019 RLE Other lack of coordination Other specified soft tissue disorders Other symbolic dysfunctions Schizophrenia ([facility]) Sleep apnea no CPAP Venous insufficiency LABS: CBC: Recent Labs 10/20/24 0642 10/21/24 0137 10/22/2453 WBC 13.4* 11.9* 9.7 RBC 3.85 3.73 3.56 HGB 10.5* 10.2* 9.7* HCT 33.0 31.6 30.0 MCV 85.7 84.7 84.3 RDW 13.9 13.4 13.5 PLT 353 396 419 BMP: Recent Labs 10/20/24 0642 10/21/2413610/22/2453 NA 133* 135* 139 K 3.6 3.3* 3.3* CL 98 100 104 CO2 21* 23 24 BUN 48* 48* 35* CREATININE 1.50 1.35 1.05 GLUCOSE 461* 112* 148* CALCIUM 9.0 8.8 8.7 ANIONGAP 14* 12 11 LIVER PROFILE: Recent Labs 10/20/2442 10/21/2413610/22/2453 AST 20 20 19 ALT 53 42 [...] Álvaro Thomas MD Division of Hospitalist Medicine [facility] Hospitalist Progress Note 10/21/2024 Subjective: Admit Date: 10/18/2024 PCP: Jared Guzman Room#: [id number] A BRIEF HOSPITAL COURSE: Admitted for abdominal [...] CPAP Venous insufficiency LABS: CBC: Recent Labs 10/19/2434210/20/24 0642 10/21/24 013 WBC 21.8* 13.4* 11.9* RBC 3.94 3.85 3.73 HGB 10.9* 10.5* 10.2* HCT 34.4 33.0 31.6 MCV 87.3 85.7 84.7 RDW 14.5 13.9 13.4 PLT 339 353 396 BMP: Recent Labs 10/19/2434210/20/24 0642 10/21/24 013 NA 135* 133* 135* K 3.6 3.6 3.3* CL 102 98 100 CO2 22 21* 23 BUN 32* 48* 48* CREATININE 1.15 1.50 1.35 GLUCOSE 223* 461* 112* CALCIUM 8.9 9.0 8.8 ANIONGAP 11 14* 12 LIVER PROFILE: Recent Labs 10/19/2434210/20/24 0642 10/21/24 013 AST 50* 20 20 ALT 83 53 [...] course - wok on DC with case resolution specialist - am labs, replace lytes prn - PT/OT/CM/SW - delirium precautions: increase activity - DVT prophylaxis: enoxaparin and encourage ambulation Advance Directive: DNR-CCA Anticipated Discharge Extended Emergency Contact Information Primary Emergency Contact: Jovana Quesada (POA) Relation: Ambrosio Secondary Emergency Contact: LubinCarola Mobile Relation: Other Álvaro Thomas MD Division of Hospitalist Medicine [facility] Images from the original note were not included. Attending Attestation [facility] - General Surgery Patient Name: Will Jacinto [...] dry, and intact Data: CBC: Recent Labs 10/19/243 10/20/24 0642 10/21/24 0137 WBC 21.8* 13.4* 11.9* HGB 10.9* 10.5* 10.2* HCT 34.4 33.0 31.6 PLT 339 353 396 BMP: Recent Labs 10/19/24 0343 10/20/24 0642 10/21/24 0137 NA 135* 133* 135* K 3.6 3.6 3.3* CL 102 98 100 CO2 22 21* 23 BUN 32* 48* 48* CREATININE 1.15 1.50 1.35 GLUCOSE 223* 461* 112* Hepatic: Recent Labs 10/19/243 10/20/24 0642 10/21/24 0137 AST 50* 20 [...] from the original note were not included. [facility] - Infectious Diseases Attending Progress Note Subjective: [...] (98.7 F) Temporal 101 24 96 % 12/12/24 2030 144/81 37.2 C (98.9 F) Temporal [...] 1511 Aerobic and Anaerobic Culture with Stain [[id number]] Bile In process Component Value No component results 10/19/2024 1508 10/19/2024 2159 Culture, Aerobic Bacteria with Gram Stain [[id number]] Bile Preliminary result Component Value Culture Culture in progress P Gram Stain Result Few Polymorphonuclear leukocytes per low power field P No organisms seen P 10/19/2024 1508 10/19/2024 1511 Anaerobic culture [[id number]] Bile In process Component Value No component results 10/19/2024 1352 10/20/2024 1147 Culture, Aerobic Bacteria with Gram Stain [[id number]] Bile from Gallbladder Preliminary result Component Value Culture No growth at 18-24 hours P Gram Stain Result Few Polymorphonuclear leukocytes per low power field P No organisms seen P 10/19/2024 1352 10/19/2024 1415 Aerobic and Anaerobic Culture with Stain [[id number]] Bile from Gallbladder In process Component Value No component results 10/19/2024 1352 10/19/2024 1415 Anaerobic culture [[id number]] Bile from Gallbladder In process Component Value No component results 10/19/2024 0155 10/19/2024 0207 Occult blood, stool [[id number]] (Abnormal) Stool from Per Rectum Final result Component Value Fecal occult blood Positive Abnormal 10/18/2024 2343 10/20/2024 0735 Urine culture [[id number]] Urine, Clean Catch Final result Component Value Urine Culture Insignificant growth based on current clinical guidelines Lines: PIV site ok Radiography/Echo/Other: US guided percutaneous peritoneal or retroperitoneal fluid collection drainage [[id number]] Collected: 10/19/24 142 Order Status: Completed Updated: 10/19/241422 Narrative: Patient [...] advanced. Subcutaneous tract was dilated. An 8 Bahraini drainage catheter advanced over the wire. The catheter was attached to a bag. A dressing was applied. Impression: Successful placement of a drainage catheter into the gallbladder using ultrasound guidance. Report Dictated on Electronically Signed By: Alfredito Baumann MD Electronically Signed Date/Time: 10/19/2024 2:22 PM EST US abdomen limited [[id number]] Collected: 10/18/242011 Order Status: Completed Updated: 10/18/242021 [...] PM EST CT abdomen pelvis w contrast [[id number]] Collected: 10/18/241904 Order Status: Completed Updated: 10/18/241913 [...] chest angiogram w and/or wo IV contrast [[id number]] Collected: 10/18/241856 Order Status: Completed Updated: 10/18/241912 [...] side (HCC) Anxiety disorder Bipolar 1 disorder ([facility]) Blood circulation, collateral Cellulitis chronic L lower leg COVID 12/08/2021 Depression Diabetes mellitus ([facility]) Type II, on insulin Disease of blood and blood forming organ Endometrial carcinoma ([facility]) 11/25/2020 Endometrial hyperplasia Foot ulcer ([facility]) Hx of blood clots RLE prior to amputation Hyperlipidemia Hypertension Lymphedema 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, RLE Morbidly obese ([facility]) Muscle weakness Osteomyelitis (HCC) Osteomyelitis (HCC) 2019 RLE Other lack of coordination Other specified soft tissue disorders Other symbolic dysfunctions Schizophrenia ([facility]) Sleep apnea no CPAP [...] Emergency Contact Information Primary Emergency Contact: Quesada (POA)Jovana Relation: Niece Secondary Emergency Contact: Carola Lubin Mobile Relation: Other Álvaro Thomas MD Division of Hospitalist Medicine Acute [facility] Department of Internal Medicine Division of Endocrinology, Diabetes, & Metabolism Endocrinology Note Patient Name: Will Jacinto : 1965 AGE: 58 y.o. Room/Bed: [facility]254/[facility] A Admission Date: 10/18/2024 Visit Date: 10/20/2024 Reason for Endocrine Consult: IDDM on u500 Provider/Team Requesting Consult: Shawna Estrada PCP: Jared Guzman Outpt Sweeper Operator Highways: Yes - Dr Lee- VV 10/27/2023 ASSESSMENT: [...] bid Outpt Follow Up-- Dr Lee or SHAKER REPAIRER as available - message sent SUBJECTIVE/HPI: CHIEF COMPLAINT: Chief Complaint Patient presents with Abdominal Pain [facility] Pt presents with abd pain, diarrhea, chest pain. Pt presents aox4 speaking in full and complete sentences. Chest Pain Nausea Presented to ED after abdominal pain that started on Wednesday evening (10/17/2024) Found to have Acute Cholecyctitis that needs to be managed medically, patient is on u500 units at [facility] Type of DM: 2 Onset [...] found for: CHOLHDLRATIO No results found for: [id number] Lab Results Component Value Date TSH 1.037 12/31/2023 Radiology reportsas per the Radiologist Radiology: POCT glucose meter Result Date: 10/19/2024 Performed by: [facility], [address] [place] [id number] CLIA ID: [id number] POCT glucose meter Result Date: 10/19/2024 Performed by: [facility], [address] [facility] [address] CLIA ID: [id number] POCT glucose meter Result Date: 10/19/2024 Performed by: [facility], [address] [facility] [address] CLIA ID: [id number] ECG 12 lead Sinus rhythm Left ventricular hypertrophy Anterior Q waves, possibly due to LVH Electronically Signed On 10-18-2024 23:06:53 EST by Sunitha Borja POCT glucose meter Result Date: 10/18/2024 Performed by: [facility], [address] [place] [address] CLIA ID: [id number] US abdomen limited Result Date: 10/18/2024 Patient [...] side (HCC) Anxiety disorder Bipolar 1 disorder ([facility]) Blood circulation, collateral Cellulitis chronic L lower leg COVID 12/08/2021 Depression Diabetes mellitus ([facility]) Type II, on insulin Disease of blood and blood forming organ Endometrial carcinoma ([facility]) 11/25/2020 Endometrial hyperplasia Foot ulcer ([facility]) Hx of blood clots RLE prior to amputation Hyperlipidemia Hypertension Lymphedema 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, RLE Morbidly obese ([facility]) Muscle weakness Osteomyelitis (HCC) Osteomyelitis (HCC) 2019 RLE Other lack of coordination Other specified soft tissue disorders Other symbolic dysfunctions Schizophrenia ([facility]) Sleep apnea no CPAP Venous insufficiency Past Surgical History: Past Surgical History: Procedure Laterality Date ABCESS DRAINAGE Right 09/09/2018 FOOT; ACH COLONOSCOPY 09/19/[address] Hyde DILATION AND CURETTAGE OF UTERUS 05/18/2019 HYSTEROSCOPY 12/23/2021 LEG AMPUTATION THROUGH KNEE Right 06/16/2019 UPPER GASTROINTESTINAL ENDOSCOPY N/A 06/29/2023 Dr Sergio Sibley at [facility]; no specimens WISDOM TOOTH EXTRACTION Allergy(ies): No [...] original note were not included. Attending Attestation [facility] - Surgery [facility] Physicians Surgery Patient Name: Will Jacinto Date: 10/23/24 Patient seen and examined. Pain [...] answered. Lilo Rizo MD General Surgery Pager #[phone] 10:55 AM 10/23/2024 GENERAL SURGERY Progress Note [...] side (HCC) Anxiety disorder Bipolar 1 disorder ([facility]) Blood circulation, collateral Cellulitis [...] soft tissue disorders Other symbolic dysfunctions Schizophrenia ([facility]) Sleep apnea no CPAP [...] Information Primary Emergency Contact: Quesada DARIHerminiaJovana Relation: Nidarrell Secondary Emergency Contact: Carola Lubin Mobile Relation: Other Álvaro Thomas MD Division of Hospitalist Medicine Acute [facility] Images from the original note were not included. PHYSICAL THERAPY [facility] Name/MRN: Maria Luisa Jacinto ([id number]) Date: 10/19/2024 PT evaluation orders received and chart review completed. 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 Per documentation this admission and on previous admissions, this patient is non-ambulatory, requires a deedee lift for transfers to a w/c at baseline and does not complete bed mobility. No acute PT needs identified. Rec return to [facility] at discharge. Sandra De Guzman PT documented in this encounter [facility] 10-23-2024 Note Formatting of this n ote might be different from the original. DC orders in and signed by Dr. Thomas. BILINGUAL TEACHER AIDE set up transport. MUSSEL OPENER tasked in [facility] DC back to [facility]CF in stable condition. . [facility] 10-23-2024 Note Formatting of this n ote might be different from the original. DC orders in and signed by Dr. Thomas. BILINGUAL TEACHER AIDE set up transport. [facility] tasked in [facility] DC back to ECF in stable condition. . [facility] 10-23-[address] [facility] 10-23-2024 Hospital course Narrative Discharge Summary [...] advanced. Subcutaneous tract was dilated. An 8 Bahraini drainage catheter advanced over the wire. The [...] Your Medications These medications were sent to [facility] [address] [place] [address] Hours: Wednesday to Wednesday 10 am to 6 pm amoxicillin-clavulanate 875-125 MG tablet DIET: Adult diet Regular; 4 carb choices (60 gm/meal); Low Fat (less than or equal to 50 gm/day); Low Fiber ACTIVITY: No restriction. COMPLEXITY OF FOLLOW UP: [x] Moderate Complexity: follow up within 7-14 calendar days (41856) [] Severe Complexity: follow up within 7 calendar days (83970) FOLLOW UP TESTING, PENDING RESULTS OR REFERRALS AT TRANSITIONAL CARE VISIT: [x] Yes [] No PENDING STUDIES: DISPOSITION: Skilled Facility FACILITY/HOME CARE AGENCY NAME: Follow up with Lilo Rizo MD [address] [facility] [id number] Schedule an appointment as soon as possible for a visit in 1 month(s) Drain follow up Jared Guzman [address] [facility] [address] Follow up in 1 week(s) [facility] Gastroenterology [address] [address] Follow up for positive occult [...] 10/23/2024, 11:26 AM documented in this encounter [facility] 10-23-2024 Hospital Discharg e instructions Álvaro [...] Nurse: Ezio Dunlap RN Discharging Hospital Unit/Room#: N6-693/D1-127 A Discharging Unit Emergency Contact: Extended Emergency [...] ENDOSCOPY N/A 06/29/2023 Dr Sergio Sibley at [facility]; no specimens WISDOM TOOTH EXTRACTION Immunization History: [...] assistance Toileting Total assistance Feeding Total assistance Barrel Finisher Total assistance Med Delivery yes Wound Care [...] Status Date: Discharging to Facility/ Agency Name: [facility] Address:[address] [place] [address] Dialysis Facility (if applicable) Name: Address: Dialysis Schedule: Phone: Fax: Mica Sizer/Drug Enforcement Agent signature: ICIAN SECTION Name: Will Jacinto Prognosis: fair Condition at Discharge: stable Rehab Potential (if transferring to Rehab): fair Recommended Labs or Other Treatments After Discharge: CBC/CMP in 3 days and in 1 week Follow up with surgery as scheduled. The individual is being admitted to a nursing facility directly from an [facility] or a unit of a [facility] that is not operated by or licensed by [facility] under section 5119.14 or 5160-3-15.1 5 The individual requires the level of services provided by a nursing facility for the condition for which he or she was treated in the hospital and, Physician Certification: I certify the above information and transfer of Will Jacinto is necessary for the continuing treatment of the diagnosis listed and that he requires [facility] facility for less than 30 days. Update Admission H&P: No change in H&P PHYSICIAN SIGNATURE: documented in this encounter [facility] 10-22-2024 Plan of care note Problem: Knowledge Deficit Goal: Patient/family/caregiver demonstrates understanding of disease process, treatment plan, medications, and discharge instructions Outcome: Progressing Problem: Potential for Compromised Skin Integrity Goal: Skin Integrity is Maintained or Improved Outcome: Progressing [facility] 10-22-2024 Plan of care note Problem: Knowledge Deficit Goal: Patient/family/caregiver demonstrates understanding of disease process, treatment plan, medications, and discharge instructions Outcome: Progressing Problem: Potential for Compromised Skin Integrity Goal: Skin Integrity is Maintained or Improved Outcome: Progressing [facility] 10-21-2024 Note Formatting of this n ote might be different from the original. Did update [facility] that attending would like patient to return to their facility tomorrow on po antibiotics. Will have TCC coverage for tomorrow follow for reply. Patient is fpc at the facility and does not need auth to return. [facility] 10-21-2024 Note Formatting of this n ote might be different from the original. [facility] that attending would like patient to return to their facility tomorrow on po antibiotics. Will have TCC coverage for tomorrow follow for reply. Patient is fpc at the facility and does not need auth to return. [facility] 10-20-2024 Nurse Note Report called to [address] [place] [address] for transfer. [facility] 10-20-2024 Consult note Associated Order (s): IP WOUND CARE NURSE CONSULT TO EVAL [facility] Wound Care Prevention CONSULT Note [...] side (HCC) Anxiety disorder Bipolar 1 disorder ([facility]) Blood circulation, collateral Cellulitis chronic L lower leg COVID 12/08/2021 Depression Diabetes mellitus ([facility]) Type II, on insulin Disease of blood and blood forming organ Endometrial carcinoma ([facility]) 11/25/2020 Endometrial hyperplasia Foot ulcer ([facility]) Hx of blood clots RLE prior to amputation Hyperlipidemia Hypertension Lymphedema 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, RLE Morbidly obese ([facility]) Muscle weakness Osteomyelitis (HCC) Osteomyelitis (HCC) 2019 RLE Other lack of coordination Other specified soft tissue disorders Other symbolic dysfunctions Schizophrenia ([facility]) Sleep apnea no CPAP Venous insufficiency PAST SURGICAL HISTORY Past Surgical History: Procedure Laterality Date ABCESS DRAINAGE Right 09/09/2018 FOOT; ACH COLONOSCOPY 09/19/[address] Hyde DILATION AND CURETTAGE OF UTERUS 05/18/2019 HYSTEROSCOPY 12/23/2021 LEG AMPUTATION THROUGH KNEE Right 06/16/2019 UPPER GASTROINTESTINAL ENDOSCOPY N/A 06/29/2023 Dr Sergio Sibley at [facility]; no specimens WISDOM TOOTH EXTRACTION FAMILY HISTORY [...] Geronimo DO at 10/23/2024 1:39 PM EST [email or web address] Work Phone: 10-20-2024 Consult note Associated Order (s): IP WOUND CARE NURSE CONSULT TO EVAL [facility] Wound Care Prevention CONSULT Note [...] side (HCC) Anxiety disorder Bipolar 1 disorder ([facility]) Blood circulation, collateral Cellulitis chronic L lower leg COVID 12/08/2021 Depression Diabetes mellitus ([facility]) Type II, on insulin Disease of blood and blood forming organ Endometrial carcinoma ([facility]) 11/25/2020 Endometrial hyperplasia Foot ulcer ([facility]) Hx of blood clots RLE prior to amputation Hyperlipidemia Hypertension Lymphedema 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, RLE Morbidly obese ([facility]) Muscle weakness Osteomyelitis ([facility]) Osteomyelitis ([facility]) 2019 RLE Other lack [...] ENDOSCOPY N/A 06/29/2023 Dr Sergio Sibley at [facility]; no specimens WISDOM TOOTH EXTRACTION FAMILY HISTORY [...] : 1965 AGE: 58 y.o. Room/Bed: [facility]/[address] Admission Date: 10/18/2024 Visit Date: 10/19/2024 Reason for Endocrine Consult: IDDM on u500 Provider/Team Requesting Consult: Shawna Estrada PCP: Jared Guzman Outpt Sweeper Operator Highways: Yes - Dr Lee- VV 10/27/2023 ASSESSMENT: [...] bid Outpt Follow Up-- Dr lee or SHAKER REPAIRER as available - message sent SUBJECTIVE/HPI: CHIEF COMPLAINT: Chief Complaint Patient presents with Abdominal Pain Pt presents to er from [facility]. Pt presents with abd pain, diarrhea, chest pain. Pt presents aox4 speaking in full and complete sentences. Chest Pain Nausea Presented to ED after abdominal pain that started on Wednesday evening (10/17/2024) Found to have Acute Cholecyctitis that needs to be managed medically, patient is on u500 units at [facility] Type of DM: 2 Onset [...] found for: CHOLHDLRATIO No results found for: [id number] Lab Results Component Value Date TSH 1.037 12/31/2023 Radiology reportsas per the Radiologist Radiology: POCT glucose meter Result Date: 10/19/2024 Performed by: [facility], [address] [place] [address] CLIA ID: [id number] POCT glucose meter Result Date: 10/19/2024 Performed by: [facility], [address] [place] [address] CLIA ID: [id number] POCT glucose meter Result Date: 10/19/2024 Performed by: [facility], [address] [place] [address] CLIA ID: [id number] ECG 12 lead Sinus rhythm Left ventricular hypertrophy Anterior Q waves, possibly due to LVH Electronically Signed On 10-18-2024 23:06:53 EST by Sunitha Borja POCT glucose meter Result Date: 10/18/2024 Performed by: [facility], [address] [place] [address] CLIA ID: [id number] US abdomen limited Result Date: 10/18/2024 [facility] 1965 [id number] Exam Date/Time: 10/18/2024 19:36 Procedure: US ABDOMEN [...] 10/18/2024 Patient Name: WILL JACINTO : 1965 [facility]#: [id number] Exam Date/Time: 10/18/2024 17:20 Procedure: CT CHEST [...] ENDOSCOPY N/A 06/29/2023 Dr Sergio Sibley at [facility]; no specimens WISDOM TOOTH EXTRACTION Allergy(ies): No [...] from the original note were not included. [facility] - Infectious Diseases Attending [...] Acquired absence of other toe(s), unspecified side ([facility]) Anxiety disorder Bipolar 1 disorder ([facility]) Blood circulation, collateral Cellulitis chronic L lower leg COVID 12/08/2021 Depression Diabetes mellitus ([facility]) Type II, on insulin Disease of blood and blood forming organ Endometrial carcinoma ([facility]) 11/25/2020 Endometrial hyperplasia Foot ulcer ([facility]) Hx of blood clots RLE prior to amputation Hyperlipidemia Hypertension Lymphedema 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, RLE Morbidly obese ([facility]) Muscle weakness Osteomyelitis ([facility]) Osteomyelitis ([facility]) 2019 RLE Other lack of coordination Other specified soft tissue disorders Other symbolic dysfunctions Schizophrenia ([facility]) Sleep apnea no CPAP Venous insufficiency Past Surgical History: Past Surgical History: Procedure Laterality Date ABCESS DRAINAGE Right 09/09/2018 FOOT; ACH COLONOSCOPY 09/19/[address] Hyde DILATION AND CURETTAGE OF UTERUS 05/18/2019 HYSTEROSCOPY 12/23/2021 LEG AMPUTATION THROUGH KNEE Right 06/16/2019 UPPER GASTROINTESTINAL ENDOSCOPY N/A 06/29/2023 Dr Sergio Sibley at [facility]; no specimens WISDOM TOOTH EXTRACTION Current Medications: Current Facility-Administered Medications Medication Dose Route Frequency Provider Last Rate Last Admin acetaminophen (Tylenol) tablet 650 mg 650 mg Oral q6h PRN Grace Charly, MD Or acetaminophen (Tylenol) suppository 650 mg [...] 10 mg Oral 4x daily AC & TEE Ackerman MD 10 mg at 10/19/24 0631 [...] Grace Ackerman MD 10 mg at 10/19/24 0935 Allergies: No Known Allergies Social History: Social [...] file Stress: No Stress Concern Present (10/19/2024) [employer] - Occupational Stress Questionnaire Feeling of Stress : Only a little Social Connections: Unknown (10/19/2024) Social Connection and Isolation Panel [NHANES] Frequency of Communication with Friends and Family: Three times a week Frequency of Social Gatherings with Friends and Family: Once a week Attends Church Services: 1 to 4 times per year [...] "COVID19" in the last 72 hours. 10/19/2024 747877 1415 Culture, Aerobic Bacteria with Gram Stain [[id number]] Bile from Gallbladder In process Component Value No component results 10/19/2024 964356 1415 Aerobic and Anaerobic Culture with Stain [[id number]] Bile from Gallbladder In process Component Value No component results 10/19/2024 38105912/20/2023 1415 Anaerobic culture [[id number]] Bile from Gallbladder In process Component Value No component results 10/19/2024 69107712/20/2023 0207 Occult blood, stool [[id number]] (Abnormal) Stool from Per Rectum Final result Component Value Fecal occult blood Positive Abnormal 10/18/2024 51884612/20/2023 0022 Urine culture [[id number]] Urine, Clean Catch In process Component Value No component results Lines: PIV site looked ok Radiography/Echo/Other: US guided percutaneous peritoneal or retroperitoneal fluid collection drainage [[id number]] Resulted: 10/19/24 1334 Order Status: Sent Updated: 10/19/24 1405 US abdomen limited [[id number]] Collected: 10/18/242011 Order Status: Completed Updated: 10/18/242021 [...] PM EST CT abdomen pelvis w contrast [[id number]] Collected: 10/18/241904 Order Status: Completed Updated: 10/18/241913 [...] chest angiogram w and/or wo IV contrast [[id number]] Collected: 10/18/241856 Order Status: Completed Updated: 10/18/241912 [...] original note were not included. Attending Attestation [facility] - Surgery [facility] Physicians Surgery Patient Name: Will Jacinto [...] answered. Lilo Rizo MD General Surgery Pager #[phone] 1:56 PM 10/19/2024 Department of General Surgery [...] denies fever/chills or nausea/vomiting. He resides at [facility] and notes that while oxygen has been [...] Acquired absence of other toe(s), unspecified side ([facility]) Anxiety disorder Bipolar 1 disorder ([facility]) Blood circulation, collateral Cellulitis chronic L lower leg COVID 12/08/2021 Depression Diabetes mellitus ([facility]) Type II, on insulin Disease of blood and blood forming organ Endometrial carcinoma ([facility]) 11/25/2020 Endometrial hyperplasia Foot ulcer ([facility]) Hx of blood clots RLE prior to amputation Hyperlipidemia Hypertension Lymphedema 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, RLE Morbidly obese ([facility]) Muscle weakness Osteomyelitis ([facility]) Osteomyelitis ([facility]) 2019 RLE Other lack of coordination Other specified soft tissue disorders Other symbolic dysfunctions Schizophrenia ([facility]) Sleep apnea no CPAP Venous insufficiency Past Surgical History: Past Surgical History: Procedure Laterality Date ABCESS DRAINAGE Right 09/09/2018 FOOT; ACH COLONOSCOPY 09/19/[address] Hyde DILATION AND CURETTAGE OF UTERUS 05/18/2019 HYSTEROSCOPY 12/23/2021 LEG AMPUTATION THROUGH KNEE Right 06/16/2019 UPPER GASTROINTESTINAL ENDOSCOPY N/A 06/29/2023 Dr Sergio Sibley at [facility]; no specimens WISDOM TOOTH EXTRACTION Current Medications: [...] file Stress: No Stress Concern Present (10/19/2024) [employer] - Occupational Stress Questionnaire Feeling of Stress : Only a little Social Connections: Unknown (10/19/2024) Social Connection and Isolation Panel [NHANES] Frequency of Communication with Friends and Family: Three times a week Frequency of Social Gatherings with Friends and Family: Once a week Attends Church Services: 1 to 4 times per year [...] EST Result History US abdomen limited (Order #[id number]) on 10/18/2024 - Order Result History Report US abdomen limited: Patient Communication Add Comments Not seen Breast Imaging Recommendations McQuiggan, Maria Luisa M No recommendations exist for this order. Risk Scores No Tyrer-Cuzick assessment data. No Risk Considerations assessment data. No NCC HBOC Guidelines assessment data. No NCCN Caro assessment data. No Risk Explanation Tyrer-Cuzick 8 assessment data. No BRCAPRO assessment data. No Myriad risk assessment data. No Arian risk assessment data. No Anne risk assessment data. No DEAL ARCHITECT Request ID assessment data. No DEAL ARCHITECT counter server ID assessment data. Breast Cancer Risk Navigation Events None Signed by Signed Time Phone Pager Joel Haddad MD 10/18/2024 20:21 Exam Information Status Exam Begun Exam Ended Final 10/18/2024 19:36 10/18/2024 20:00 External Results Report Open External Results Report Encounter View Encounter Study Details Open Study Details Order Transmittal Tracking US abdomen limited (Order #[id number]) on 10/18/24 Order Report US abdomen limited (Order #[id number]) on 10/18/24 CT abdomen pelvis w contrast Status: Final result Link to Procedure Log Procedure Log Orders Requiring a Screening Form Procedure Order Status Order ID Accession Number Form Status CT abdomen pelvis w contrast Completed [id number] Created PACS Images Show images for CT [...] History CT abdomen pelvis w contrast (Order #[id number]) on 10/18/2024 - Order Result History Report [...] data. No Anne risk assessment data. No DEAL ARCHITECT Request ID assessment data. No DEAL ARCHITECT counter server ID assessment data. Breast Cancer Risk [...] Tracking CT abdomen pelvis w contrast (Order #[id number]) on 10/18/[address] abdomen pelvis w contrast (Order #[id number]) on 10/18/24 CBC: Recent Labs 10/18/24 1640 [...] 7:30a-4:30p Wednesday-Wednesday After hours, please contact physician communications designer. Associated Order(s): Inpatient consult to Gastroenterology Images [...] side (HCC) Anxiety disorder Bipolar 1 disorder ([facility]) Blood circulation, collateral Cellulitis chronic L lower leg COVID 12/08/2021 Depression Diabetes mellitus ([facility]) Type II, on insulin Disease of blood and blood forming organ Endometrial carcinoma ([facility]) 11/25/2020 Endometrial hyperplasia Foot ulcer ([facility]) Hx of blood clots RLE prior to amputation Hyperlipidemia Hypertension Lymphedema 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, RLE Morbidly obese ([facility]) Muscle weakness Osteomyelitis ([facility]) Osteomyelitis ([facility]) 2019 RLE Other lack of coordination Other specified soft tissue disorders Other symbolic dysfunctions Schizophrenia ([facility]) Sleep apnea no CPAP Venous insufficiency PAST SURGICAL HISTORY: Past Surgical History: Procedure Laterality Date ABCESS DRAINAGE Right 09/09/2018 FOOT; A[facility] COLONOSCOPY 09/19/[address] Hyde DILATION AND CURETTAGE OF UTERUS 05/18/2019 HYSTEROSCOPY 12/23/2021 LEG AMPUTATION THROUGH KNEE Right 06/16/2019 UPPER GASTROINTESTINAL ENDOSCOPY N/A 06/29/2023 Dr Sergio Sibley at [facility]; no specimens WISDOM TOOTH EXTRACTION FAMILY HISTORY: [...] mL, 3 mL, Nebulization, 4x daily PRN, rGace Ackerman MD, 3 mL at 10/18/24 2301 [...] POCT glucose meter Performed by: [facility], [address] [place] [id number] CLIA ID: [id number] [facility]@ abdomen limited Final Result 1. Cholestasis, [...] provider for clarification.) documented in this encounter [facility] 10-20-2024 Note Formatting of this n [...] return unless he goes back as skilled. wireless development manager to follow and assist as needed. Length of Stay (Days): 2 GMLOS: 3.5 [facility] 10-20-2024 Note Formatting of this n [...] return unless he goes back as skilled. wireless development manager to follow and assist as needed. Length of Stay (Days): 2 GMLOS: 3.5 [facility] 10-20-2024 Note Problem: Potential f or Compromised Skin Integrity Goal: Skin Integrity is Maintained or Improved Outcome: Progressing Problem: Urinary Incontinence Goal: Perineal skin integrity is maintained or improved Outcome: Progressing [facility] 10-20-2024 Plan of care note Problem: Potential for Compromised Skin Integrity Goal: Skin Integrity is Maintained or Improved Outcome: Progressing Problem: Urinary Incontinence Goal: Perineal skin integrity is maintained or improved Outcome: Progressing [facility] 10-20-2024 Nurse Note Notified Lisa Lopes APRN and Dr. Thomas regarding patients BS. New orders placed. [facility] 10-20-2024 Note Formatting of this n ote might be different from the original. Sent updated notes to return back to [facility] via [facility] per TCC request. Await review and response regarding ability to accept. TCC notified. [facility] 10-20-2024 Note Formatting of this n ote might be different from the original. Sent updated notes to return back to [facility] via [facility] per TCC request. Await review and response regarding ability to accept. TCC notified. [facility] 10-19-2024 Telephone encounter Note Needs to be seen for follow up with any provider, will need ECF to arrange transportation so that patient can be seen in office ans no longer available to manage over the phone [facility] 10-19-2024 Miscellaneous Notes Needs to be seen for follow up with any provider, will need ECF to arrange transportation so that patient can be seen in office ans no longer available to manage over the phone documented in this encounter [facility] 10-19-2024 Note Formatting of this n ote might be different from the original. Referral placed to return back to [facility] via [facility] per TCC request. Await review and response regarding ability to accept. TCC notified. [facility] 10-19-2024 Note Formatting of this n ote might be different from the original. Referral placed to return back to [facility] via [facility] per TCC request. Await review and response regarding ability to accept. TCC notified. [facility] 10-19-2024 Note Referral placed to r eturn back to [facility] via [facility] per TCC request. Await review and response regarding ability to accept. TCC notified. [facility] 10-19-2024 Note Formatting of this n ote might be different from the original. Care Managment Initial Assessment Date: 10/19/2024 Patient Name: Will Jacinto : 1965 Patient Information Source of Information: Patient Cognition/Language: WFL - Within Functional Limits Permission given to speak with patient telephone services sales representative/caregiver as indicated: Confirmation of Payer with patient/family: Payer Name: [place]: Confirmation of Primary Care Physician: Primary Caregiver: Other (Comment) (Facility staff) If assistance needed, confirmed caregiver ready, willing and able to care for patient at discharge: Confirmed with: Living Arrangements Current Residence: Number of Floors Number of Entry Steps: Bed/Bath Levels: Facility: [facility] Facility Name: [facility] [...] ADLS. Requires a deedee for transfers. Tasked MUSSEL OPENER to send return referral to [facility]. Gen surg and ID following. Endocrinology consulted. Receiving IV ATB and fluids. NPO at this time. Pt to have biliary drain placed today. Fecal occult stool positive. Discharge plan will be to return to [facility] once medically ready. wireless development manager to follow and assist as needed. Gill Brown RN [facility] 10-19-2024 Note Formatting of this n ote might be different from the original. Care Managment Initial Assessment Date: 10/19/2024 Patient Name: Will Jacinto : 1965 Patient Information Source of Information: Patient Cognition/Language: WFL - Within Functional Limits Permission given to speak with patient telephone services sales representative/caregiver as indicated: Confirmation of Payer with patient/family: Payer Name: : Confirmation of Primary Care Physician: Primary Caregiver: Other (Comment) (Facility staff) If assistance needed, confirmed caregiver ready, willing and able to care for patient at discharge: Confirmed with: Living Arrangements Current Residence: Number of Floors Number of Entry Steps: Bed/Bath Levels: Facility: [facility] Facility Name: [facility] [...] ADLS. Requires a deedee for transfers. Tasked MUSSEL OPENER to send return referral to [facility]. Gen surg and ID following. Endocrinology consulted. Receiving IV ATB and fluids. NPO at this time. Pt to have biliary drain placed today. Fecal occult stool positive. Discharge plan will be to return to [facility] once medically ready. wireless development manager to follow and assist as needed. Gill Brown RN [facility] 10-19-2024 Consult note Associated Order (s): IP CONSULT TO ENDOCRINOLOGY Department of Internal Medicine Division of Endocrinology, Diabetes, & Metabolism Endocrinology Note Patient Name: Will Jacinto : 1965 AGE: 58 y.o. Room/Bed: [facility]/[address] Admission Date: 10/18/2024 Visit Date: 10/19/2024 Reason for Endocrine Consult: IDDM on u500 Provider/Team Requesting Consult: Shawna Estrada PCP: Jared Guzman Outpt Sweeper Operator Highways: Yes - Dr Lee- VV 10/27/2023 ASSESSMENT: [...] bid Outpt Follow Up-- Dr lee or SHAKER REPAIRER as available - message sent SUBJECTIVE/HPI: CHIEF COMPLAINT: Chief Complaint Patient presents with Abdominal Pain Pt presents to er from [facility]. Pt presents with abd pain, diarrhea, chest pain. Pt presents aox4 speaking in full and complete sentences. Chest Pain Nausea Presented to ED after abdominal pain that started on Wednesday evening (10/17/2024) Found to have Acute Cholecyctitis that needs to be managed medically, patient is on u500 units at [facility] Type of DM: 2 Onset [...] found for: CHOLHDLRATIO No results found for: [id number] Lab Results Component Value Date TSH 1.037 12/31/2023 Radiology reportsas per the Radiologist Radiology: POCT glucose meter Result Date: 10/19/2024 [facility]: [facility], [address] [place] [id number] CLIA ID: [id number] POCT glucose meter Result Date: 10/19/2024 Performed by: [facility], [address] [place] [id number] CLIA ID: [id number] POCT glucose meter Result Date: 10/19/2024 Performed by: [facility], [address] [place] [id number] CLIA ID: [id number] ECG 12 lead Sinus rhythm Left ventricular hypertrophy Anterior Q waves, possibly due to LVH Electronically Signed On 10-18-2024 23:06:53 EST by Sunitha Borja POCT glucose meter Result Date: 10/18/2024 Performed by: [facility], [address] [place] [id number] CLIA ID: [id number] US abdomen limited Result Date: 10/18/2024 [facility] Name: [facility] 1965 [id number] Exam Date/Time: 10/18/2024 19:36 Procedure: US ABDOMEN [...] side (HCC) Anxiety disorder Bipolar 1 disorder ([facility]) Blood circulation, collateral Cellulitis chronic L lower leg COVID 12/08/2021 Depression Diabetes mellitus ([facility]) Type II, on insulin Disease of blood and blood forming organ Endometrial carcinoma ([facility]) 11/25/2020 Endometrial hyperplasia Foot ulcer ([facility]) Hx of blood clots RLE prior to amputation Hyperlipidemia Hypertension Lymphedema 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, RLE Morbidly obese (HCC) Muscle weakness Osteomyelitis (HCC) Osteomyelitis (HCC) 2019 RLE Other lack of coordination Other specified soft tissue disorders Other symbolic dysfunctions Schizophrenia ([facility]) Sleep apnea no CPAP Venous insufficiency Past Surgical History: Past Surgical History: Procedure Laterality Date ABCESS DRAINAGE Right 09/09/2018 FOOT; ACH COLONOSCOPY 09/19/[address] Hyde DILATION AND CURETTAGE OF UTERUS 05/18/2019 HYSTEROSCOPY 12/23/2021 LEG AMPUTATION THROUGH KNEE Right 06/16/2019 UPPER GASTROINTESTINAL ENDOSCOPY N/A 06/29/2023 Dr Sergio Sibley at [facility]; no specimens WISDOM TOOTH EXTRACTION Allergy(ies): No [...] date of this note. Cosigned by Geronimo eLe MD at 10/20/2024 1:[address] [facility] 10-19-2024 Consult note Associated Order (s): IP CONSULT TO INFECTIOUS DISEASES Images from the original note were not included. [facility] - Infectious Diseases Attending [...] Acquired absence of other toe(s), unspecified side ([facility]) Anxiety disorder Bipolar 1 disorder ([facility]) Blood circulation, collateral Cellulitis chronic L lower leg COVID 12/08/2021 Depression Diabetes mellitus ([facility]) Type II, on insulin Disease of blood and blood forming organ Endometrial carcinoma ([facility]) 11/25/2020 Endometrial hyperplasia Foot ulcer ([facility]) Hx of blood clots RLE prior to amputation Hyperlipidemia Hypertension Lymphedema 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, RLE Morbidly obese ([facility]) Muscle weakness Osteomyelitis ([facility]) Osteomyelitis ([facility]) 2019 RLE Other lack of coordination Other specified soft tissue disorders Other symbolic dysfunctions Schizophrenia ([facility]) Sleep apnea no CPAP Venous insufficiency Past Surgical History: Past Surgical History: Procedure Laterality Date ABCESS DRAINAGE Right 09/09/2018 FOOT; ACH COLONOSCOPY 09/19/[address] Hyde DILATION AND CURETTAGE OF UTERUS 05/18/2019 HYSTEROSCOPY 12/23/2021 LEG AMPUTATION THROUGH KNEE Right 06/16/2019 UPPER GASTROINTESTINAL ENDOSCOPY N/A 06/29/2023 Dr Sergio Sibley at [facility]; no specimens WISDOM TOOTH EXTRACTION Current Medications: [...] 10 mL injection 40 mg IntraVENous BID Graec Ackerman MD 40 mg at 10/19/24 0631 [...] file Stress: No Stress Concern Present (10/19/2024) [employer] - Occupational Stress Questionnaire Feeling of Stress : Only a little Social Connections: Unknown (10/19/2024) Social Connection and Isolation Panel [NHANES] Frequency of Communication with Friends and Family: Three times a week Frequency of Social Gatherings with Friends and Family: Once a week Attends Church Services: 1 to 4 times per year [...] "COVID19" in the last 72 hours. 10/19/2024 064313 1415 Culture, Aerobic Bacteria with Gram Stain [[id number]] Bile from Gallbladder In process Component Value No component results 10/19/2024 09029312/20/2023 1415 Aerobic and Anaerobic Culture with Stain [[id number]] Bile from Gallbladder In process Component Value No component results 10/19/2024 49194112/20/2023 1415 Anaerobic culture [[id number]] Bile from Gallbladder In process Component Value No component results 10/19/2024 21375912/20/2023 0207 Occult blood, stool [[id number]] (Abnormal) Stool from Per Rectum Final result Component Value Fecal occult blood Positive Abnormal 10/18/2024 11965912/20/2023 0022 Urine culture [[id number]] Urine, Clean Catch In process Component Value No component results Lines: PIV site looked ok Radiography/Echo/Other: US guided percutaneous peritoneal or retroperitoneal fluid collection drainage [[id number]] Resulted: 10/19/24 1334 Order Status: Sent Updated: 10/19/24 1405 US abdomen limited [[id number]] Collected: 10/18/242011 Order Status: Completed Updated: 10/18/242021 [...] PM EST CT abdomen pelvis w contrast [[id number]] Collected: 10/18/241904 Order Status: Completed Updated: 10/18/241913 Narrative: [facility] Name: [facility] 1965 [id number] Exam Date/Time: 10/18/2024 17:21 Procedure: CT ABDOMEN [...] chest angiogram w and/or wo IV contrast [[id number]] Collected: 10/18/241856 Order Status: Completed Updated: 10/18/241912 [...] and consideration of use of antimicrobials. [facility] 10-19-2024 Plan of care note Problem: Knowledge [...] is maintained or improved Outcome: Progressing [facility] 10-19-2024 Consult note Associated Order (s): IP CONSULT TO GENERAL SURGERY Images from the original note were not included. Attending Attestation [facility] - Surgery [facility] Surgery Patient Name: Will Jacinto [...] answered. Lilo Rizo MD General Surgery Pager #[phone] 1:56 PM 10/19/2024 Department of General Surgery [...] denies fever/chills or nausea/vomiting. He resides at [facility] and notes that while oxygen has been [...] side (HCC) Anxiety disorder Bipolar 1 disorder ([facility]) Blood circulation, collateral Cellulitis chronic L lower leg COVID 12/08/2021 Depression Diabetes mellitus ([facility]) Type II, on insulin Disease of blood and blood forming organ Endometrial carcinoma ([facility]) 11/25/2020 Endometrial hyperplasia Foot ulcer ([facility]) Hx of blood clots RLE prior to amputation Hyperlipidemia Hypertension Lymphedema 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, RLE Morbidly obese ([facility]) Muscle weakness Osteomyelitis ([facility]) Osteomyelitis ([facility]) 2019 RLE Other lack of coordination Other specified soft tissue disorders Other symbolic dysfunctions Schizophrenia ([facility]) Sleep apnea no CPAP Venous insufficiency Past Surgical History: Past Surgical History: Procedure Laterality Date ABCESS DRAINAGE Right 09/09/2018 FOOT; ACH COLONOSCOPY 09/19/[address] Hyde DILATION AND CURETTAGE OF UTERUS 05/18/2019 HYSTEROSCOPY 12/23/2021 LEG AMPUTATION THROUGH KNEE Right 06/16/2019 UPPER GASTROINTESTINAL ENDOSCOPY N/A 06/29/2023 Dr Sergio Sibley at [facility]; no specimens WISDOM TOOTH EXTRACTION Current Medications: [...] file Stress: No Stress Concern Present (10/19/2024) [employer] - Occupational Stress Questionnaire Feeling of Stress : Only a little Social Connections: Unknown (10/19/2024) Social Connection and Isolation Panel [NHANES] Frequency of Communication with Friends and Family: Three times a week Frequency of Social Gatherings with Friends and Family: Once a week Attends Church Services: 1 to 4 times per year [...] Impression Patient Name: WILL [facility] 1965 [id number] Exam Date/Time: 10/18/2024 19:36 Procedure: US ABDOMEN [...] EST Result History US abdomen limited (Order #[id number]) on 10/18/2024 - Order Result History Report [...] data. No Anne risk assessment data. No DEAL ARCHITECT Request ID assessment data. No DEAL ARCHITECT counter server ID assessment data. Breast Cancer Risk Navigation Events None Signed by Signed Time Phone Pager Joel Haddad MD 10/18/2024 20:21 Exam Information Status Exam Begun Exam Ended Final 10/18/2024 19:36 10/18/2024 20:00 External Results Report Open External Results Report Encounter View Encounter Study Details Open Study Details Order Transmittal Tracking US abdomen limited (Order #[id number]) on 10/18/24 Order Report US abdomen limited (Order #[id number]) on 10/18/24 CT abdomen pelvis w contrast Status: Final result Link to Procedure Log Procedure Log Orders Requiring a Screening Form Procedure Order Status Order ID Accession Number Form Status CT abdomen pelvis w contrast Completed [id number] Created PACS Images Show images for CT [...] History CT abdomen pelvis w contrast (Order #[id number]) on 10/18/2024 - Order Result History Report [...] data. No Anne risk assessment data. No DEAL ARCHITECT Request ID assessment data. No DEAL ARCHITECT counter server ID assessment data. Breast Cancer Risk [...] Tracking CT abdomen pelvis w contrast (Order #[id number]) on 10/18/[address] abdomen pelvis w contrast (Order #[id number]) on 10/18/24 CBC: Recent Labs 10/18/24 1640 [...] 7:30a-4:30p Wednesday-Wednesday After hours, please contact physician communications designer. [facility] 10-19-2024 Consult note Associated Order (s): [...] side (HCC) Anxiety disorder Bipolar 1 disorder ([facility]) Blood circulation, collateral Cellulitis chronic L lower leg COVID 12/08/2021 Depression Diabetes mellitus ([facility]) Type II, on insulin Disease of blood and blood forming organ Endometrial carcinoma ([facility]) 11/25/2020 Endometrial hyperplasia Foot ulcer ([facility]) Hx of blood clots RLE prior to amputation Hyperlipidemia Hypertension Lymphedema 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, RLE Morbidly obese ([facility]) Muscle weakness Osteomyelitis (HCC) Osteomyelitis ([facility]) 2019 RLE Other lack of coordination Other specified soft tissue disorders Other symbolic dysfunctions Schizophrenia ([facility]) Sleep apnea no CPAP Venous insufficiency PAST SURGICAL HISTORY: Past Surgical History: Procedure Laterality Date ABCESS DRAINAGE Right 09/09/2018 FOOT; ACH COLONOSCOPY 09/19/[address] Hyde DILATION AND CURETTAGE OF UTERUS 05/18/2019 HYSTEROSCOPY 12/23/2021 LEG AMPUTATION THROUGH KNEE Right 06/16/2019 UPPER GASTROINTESTINAL ENDOSCOPY N/A 06/29/2023 Dr Sergio Sibley at [facility]; no specimens WISDOM TOOTH EXTRACTION FAMILY HISTORY: [...] @RISRSLT@ POCT glucose meter Performed by: [facility], [address] [place], [place] [id number] CLIA ID: [id number] [facility]@ @[facility]@ abdomen limited Final Result 1. Cholestasis, [...] to contact the dictating provider for clarification.) [facility] Phone: 10-18-2024 History and physical note Attending [...] ENDOSCOPY N/A 06/29/2023 Dr Sergio Sibley at [facility]; no specimens WISDOM TOOTH EXTRACTION Social History: [...] - Date - 10/20/24 - Location - [facility] (Non-Skilled) - Pending the following -treatment for acute cholecystitis Total time spent (which include face to face and non face to face encounters) : 55 minutes. Toxic drug monitoring/narrow therapeutic index drug monitoring : # Drug name : Lovenox # Route administered : Subcutaneous # Method of monitoring : CBC Extended Emergency Contact Information Primary Emergency Contact: Sangita MELENDEZJonahTammyh Relation: Ambrosio Secondary Emergency Contact: TristianCarola Mobile Relation: Other [employer] Will Jacinto : 1965 Primary Care Physician: Jared Guzman The patient and/or family/surrogate voluntarily agreed to participate in ACP services. Patient s cognitive capacity: AOx3 Code Status: [x_] [FULL CODE - Continue all advanced life support: CPR,intubation,invasive procedures] [_] [DNR-CCA - DO NOT do CPR, intubation] [_] [DNR-MEDICAL RECORD SPECIALIST - Comfort care only] [_] DNR form [...] Grace Ackerman MD Division of Hospitalist Medicine [facility] [employer] Work Phone: 10-18-[address] [facility] 10-18-2024 History and physical note Attending History [...] ENDOSCOPY N/A 06/29/2023 Dr Sergio Sibley at [facility]; no specimens WISDOM TOOTH EXTRACTION Social History: [...] - Date - 10/20/24 - Location - [facility] (Non-Skilled) - Pending the following -treatment for acute cholecystitis Total time spent (which include face to face and non face to face encounters) : 55 minutes. Toxic drug monitoring/narrow therapeutic index drug monitoring : # Drug name : Lovenox # Route administered : Subcutaneous # Method of monitoring : CBC Extended Emergency Contact Information Primary Emergency Contact: Sangita ShaynaJovana TRIMBLE Relation: Ambrosio Secondary Emergency Contact: Carola Lubin Mobile Relation: Other [employer] Will Jacinto : 1965 Primary Care Physician: Jared Guzman The patient and/or family/surrogate voluntarily agreed to participate in ACP services. Patient s cognitive capacity: AOx3 Code Status: [x_] [FULL CODE - Continue all advanced life support: CPR,intubation,invasive procedures] [_] [DNR-CCA - DO NOT do CPR, intubation] [_] [DNR-MEDICAL RECORD SPECIALIST - Comfort care only] [_] DNR form [...] Grace Ackerman MD Division of Hospitalist Medicine [facility] documented in this encounter [facility] 10-18-2024 Emergency department Note EKG at bedside [facility] 10-18-2024 Emergency department Note EKG at bedside EKG called EMERGENCY DEPARTMENT ENCOUNTER Pt Name: Maria Luisa Jacinto Birthdate 1965 Date of evaluation: 10/18/2024 ED Provider: Dontrell Woodall DO CHIEF COMPLAINT Chief Complaint Patient presents with Abdominal Pain Pt presents to er from [facility]. Pt presents with abd pain, diarrhea, [...] Acquired absence of other toe(s), unspecified side ([facility]) Anxiety disorder Bipolar 1 disorder ([facility]) Blood circulation, collateral Cellulitis chronic L lower leg COVID 12/08/2021 Depression Diabetes mellitus ([facility]) Type II, on insulin Disease of blood and blood forming organ Endometrial carcinoma ([facility]) 11/25/2020 Endometrial hyperplasia Foot ulcer ([facility]) Hx of blood clots RLE prior to amputation Hyperlipidemia Hypertension Lymphedema 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, RLE Morbidly obese ([facility]) Muscle weakness Osteomyelitis ([facility]) Osteomyelitis ([facility]) 2019 RLE Other lack of coordination Other specified soft tissue disorders Other symbolic dysfunctions Schizophrenia ([facility]) Sleep apnea no CPAP Venous insufficiency SURGICAL HISTORY Past Surgical History: Procedure Laterality Date ABCESS DRAINAGE Right 09/09/2018 FOOT; ACH COLONOSCOPY 09/19/2020 EGD by Dr Hyde DILATION AND CURETTAGE OF UTERUS 05/18/2019 HYSTEROSCOPY 12/23/2021 LEG AMPUTATION THROUGH KNEE Right 06/16/2019 UPPER GASTROINTESTINAL ENDOSCOPY N/A 06/29/2023 Dr Sergio Sibley at [facility]; no specimens WISDOM TOOTH EXTRACTION CURRENT MEDICATIONS [...] Culture. Procedure Abnormality Status --------- ------ Complete Urinalysis[[id number]] Please view results for these tests on [...] Sitting Lying Pulse: 93 90 92 Resp: Temp: 36.9 C (98.4 F) TempSrc: Oral [...] mL (100 mL IntraVENous Given 10/18/24 1806) [place] Coma Scale Best Eye Response: Spontaneous Best [...] DO 10/18/241935 Pt presents to er from [facility]. Pt presents with abd pain, diarrhea, chest pain. Pt presents aox4 speaking in full and complete sentences. documented in this encounter [facility] 10-18-2024 Emergency department Note EKG called [facility] 10-18-2024 Emergency department Triage note Pt presents to er from [facility]. Pt presents with abd pain, diarrhea, chest pain. Pt presents aox4 speaking in full and complete sentences. [facility] 10-18-2024 Physician Emergency department Note EMERGENCY DEPARTMENT ENCOUNTER Pt Name: Maria Luisa Jacinto Birthdate 1965 Date of evaluation: 10/18/2024 ED Provider: Dontrell Woodall DO CHIEF COMPLAINT Chief Complaint Patient presents with Abdominal Pain Pt presents to er from [facility]. Pt presents with abd pain, diarrhea, [...] ENDOSCOPY N/A 06/29/2023 Dr Sergio Sibley at [facility]; no specimens WISDOM TOOTH EXTRACTION CURRENT MEDICATIONS [...] Culture. Procedure Abnormality Status --------- ------ Complete Urinalysis[[id number]] Please view results for these tests on [...] Emergency Medicine Provider Dontrell Woodall DO 10/18/241935 [facility] 09-20-2024 Telephone encounter Note Faxed recommendation to [facility]. Thank you! [facility] 09-20-2024 Miscellaneous Notes Faxed recommendation to [facility]. Thank you! Very high doses with variability and history severe hypoglycemia- would not change doses for now Images from the original note were not included. Patient's BGL documented in this encounter [facility] 09-19-2024 Telephone encounter Note Very high doses with variability and history severe hypoglycemia- would not change doses for now [email or web address] Work Phone: 09-19-2024 Telephone encounter Note Images from the original note were not included. Patient's BGL [facility] 09-13-2024 Telephone encounter Note Faxed info. To [facility]. [phone] [facility] 09-13-2024 Miscellaneous Notes Faxed info. To [facility]. [phone] Keep doses the same for now thank you Images from the original note were not included. Patient's BGL documented in this encounter [email or web address] 09-11-2024 Telephone encounter Note Keep doses the same for now thank you [email or web address] Work Phone: 09-11-2024 Miscellaneous Notes Keep doses the same for now thank you Images from the original note were not included. Patient's BGL documented in this encounter [email or web address] 09-11-2024 Telephone encounter Note Images from the original note were not included. Patient's BGL [email or web address] 08-09-2024 Miscellaneous Notes There's a more recent BGL that you also advised no changes. I faxed over recommendation to [facility]. Thank you! Please keep doses the same thank you Images from the original note were not included. Patient's BGL documented in this encounter [facility] 08-09-2024 Telephone encounter Note There's a more recent BGL that you also advised no changes. I faxed over recommendation to [facility]. Thank you! [facility] 08-09-2024 Telephone encounter Note Faxed recommendation to [facility]. Thank you! [facility] 08-09-2024 Miscellaneous Notes Faxed recommendation to [facility]. Thank you! Somewhat improved; would not make any changes at this point thank you Images from the original note were not included. Patient's BGL documented in this encounter [facility] 08-08-2024 Telephone encounter Note Somewhat improved; would not make any changes at this point thank you [email or web address] Work Phone: 08-08-2024 Miscellaneous Notes Somewhat improved; would not make any changes at this point thank you Images from the original note were not included. Patient's BGL documented in this encounter [facility] 08-08-2024 Telephone encounter Note Images from the original note were not included. Patient's BGL [facility] 08-04-2024 Telephone encounter Note Please keep doses the same thank you [facility] Work Phone: 08-04-2024 Miscellaneous Notes Please keep doses the same thank you Images from the original note were not included. Patient's BGL documented in this encounter [facility] 08-03-2024 Telephone encounter Note Images from the original note were not included. Patient's BGL [facility] 07-18-2024 Note Addended by: RADHA BUSBY on: 07/18/2024 02:17 PM Modules accepted: Orders [facility] 07-18-2024 Note Addended by: RADHA BUSBY on: 07/18/2024 02:17 PM Modules accepted: Orders [facility] 07-18-2024 Note Addended by: RADHA BUSYB on: 07/18/2024 02:17 PM Modules accepted: Orders [facility] 07-18-2024 Telephone encounter Note Called [facility] and spoke with nurse. I relayed the message below and she verbalized understanding. [facility] 07-18-2024 Miscellaneous Notes Addended by: RADHA BUSBY on: 07/18/2024 02:17 PM Modules accepted: Orders Called [facility] and spoke with nurse. I relayed the message below and she verbalized understanding. Increase lantus to 45 twice daily thank you Patient is currently taking Humulin R U500(130 units TID) and lantus(30 units BID). Please confirm current u500 doses thank you Images from the original note were not included. Patient's BGL documented in this encounter [facility] 07-18-2024 Telephone encounter Note Increase lantus to 45 twice daily thank you [facility] Work Phone: 07-18-2024 Telephone encounter Note Patient is currently taking Humulin R U500(130 units TID) and lantus([address] [facility] 07-17-2024 Telephone encounter Note Please confirm current u500 doses thank you [facility] 07-17-2024 Telephone encounter Note Images from the original note were not included. Patient's BGL [facility] 05-02-2024 Telephone encounter Note Faxed recommendation to [facility]([phone]) Thank you! [facility] 05-02-2024 Miscellaneous Notes Faxed recommendation to [facility]([phone]) Thank you! A lot of fluctuation and patient is prone to severe hypoglycemia so would not change dose thank you BS Log for 04/25/24 - 05/01/24 scanned into media for review. Please advise. Thank you. documented in this encounter [facility] 05-02-2024 Telephone encounter Note A lot of fluctuation and patient is prone to severe hypoglycemia so would not change dose thank you [facility] Work Phone: 05-02-2024 Telephone encounter Note BS Log for 04/25/24 - 05/01/24 scanned into media for review. Please advise. Thank you. [facility] 02-24-2024 Telephone encounter Note Please ask to increase u500 insulin with meals to 85 units with meals thank you [facility] Work Phone: 02-24-2024 Miscellaneous Notes Please ask to increase u500 insulin with meals to 85 units with meals thank you Nabil returned call. Nabil Message released to patient as written. Radha Busby MA Sewer Maintenance Supervisor Signed 2:13 PM Called [facility] to confirm current DM insulin regimen. Nurse [...] to the patient from encounter: N/A [facility] current DM insulin regimen. Nurse [...] included. Patient's BGL documented in this encounter [facility] 02-23-2024 Telephone encounter Note Nabil returned call. Nabil Message released to patient as written. Radha Busby MA Sewer Maintenance Supervisor Signed 2:13 PM Called [facility] to confirm current DM insulin regimen. [...] relayed to the patient from encounter: N/A [facility] 02-23-2024 Miscellaneous Notes Nabil returned call. Nabil Message released to patient as written. Radha Busby MA Sewer Maintenance Supervisor Signed 2:13 PM Called [facility] to confirm current DM insulin regimen. [...] patient from encounter: N/A Called [facility] to confirm current DM insulin regimen. Nurse [...] included. Patient's BGL documented in this encounter [email or web address] 02-23-2024 Telephone encounter Note Called [facility] to confirm current DM insulin regimen. Nurse was unavailable and will call back. We have on file that patient is taking lantus 30 units two times daily and humulin R U500 70 units with meals. CAC can release message to confirm the doses. Please also inform them for future blood sugar logs to also send current med. List. Thank you! [facility] 02-22-2024 Telephone encounter Note Please see if we can get a the patient's current dm meds with the next fax so we can adjust. Thank you [facility] Work Phone: 02-22-2024 Miscellaneous Notes Please see if we can get a the patient's current dm meds with the next fax so we can adjust. Thank you Images from the original note were not included. Patient's BGL documented in this encounter [facility] 02-22-2024 Telephone encounter Note Images from the original note were not included. Patient's BGL [facility] 02-11-2024 History of Presen t illness Narrative Visit type: Established patient History of Present Illness: [facility] History of Present Illness: Will Jacinto is [...] Results: No results found for: "FEV1", "FVC", "HDD8NNW", "TLC", "DLCO" Past Medical History: Past Medical [...] we should be able to see it-asked assistant drafter to inform us if patient would have [...] of the visit. documented in this encounter [facility] 02-11-2024 Instructions Urszula Herring MA - 02/11/2024 10:10 AM EDT YOUR APPOINTMENT TODAY WAS WITH [facility], COPD CLINIC, PULMONARY AND SLEEP MEDICINE OFFICE. PLEASE CALL OUR OFFICE AT [phone] IF YOU HAVE NOT RECEIVED YOUR TEST [...] to make improvements. COVID-19 VACCINATION INFORMATION: PH. [phone] [email or web address] [facility] Central Scheduling [phone] [facility] Sleep Scheduling [phone] documented in this encounter [facility] 01-28-2024 Emergency department Note Report called to Preethi Frias RN. Sonya Hill RN 01/28/[address] [facility] 01-28-2024 Emergency department Note Report called to Preethi Frias RN. Sonya Hill RN 01/28/24 0013 Report to PASTORA Almendarez. Maylin Nolan RN 01/27/242020 DM transport arranged. ETA 3-4 hours. Maylin Nolan RN 01/27/242018 Patient quickly ate his sack lunch and two diet cokes. Shortly after patient complains of stomach pain. Provider notified. Maylin Nolan RN 01/27/242005 Sack lunch provided. Maylin Nolan RN 01/27/241923 documented in this encounter [facility] 01-27-2024 Emergency department Note Report to PASTORA Almendarez. Maylin Nolan RN 01/27/242020 [facility] 01-27-2024 Emergency department Note DM transport arranged. ETA 3-4 hours. Maylin Nolan RN 01/27/242018 [facility] 01-27-2024 Hospital Discharg e tayla Low [...] 200 units once daily. Follow-up with your mine safety engineer in the office within the next week. documented in this encounter [facility] 01-27-2024 Emergency department Note Patient quickly ate his sack lunch and two diet cokes. Shortly after patient complains of stomach pain. Provider notified. Maylin Nolan RN 01/27/242005 [facility] 01-27-2024 Emergency department Note Sack lunch provided. Maylin Nolan RN 01/27/241923 [facility] 01-26-2024 Emergency department Note Patient provided sack lunch per his request. Denise Terry RN 01/26/242229 [facility] 01-26-2024 Emergency department Note Patient provided sack lunch per his request. Denise Terry RN 01/26/242229 I did not see or evaluate this patient in the ED. Mark Couch PA-C 01/26/242127 EMERGENCY DEPARTMENT ENCOUNTER Pt Name: Will Jacinto Birthdate 1965 Date of evaluation: 01/26/2024 ED Provider: Art Zeng DO CHIEF COMPLAINT Chief Complaint Patient presents with Hypoglycemia Patient reports from [facility] for low blood sugar. Facility states that it was 48. Patient was fed and EMS sugar was 76. On arrival to room BGM was 102. HISTORY OF PRESENT ILLNESS (Location/Symptom, Timing/Onset, Context/Setting, Quality, Duration, Modifying Factors, Severity) Note limiting factors. HPI Will Jacinto is a 58 y.o. adult who presents to the emergency department due to hypoglycemia. [facility] 48 [facility], he says they gave him some pudding, [...] Acquired absence of other toe(s), unspecified side ([facility]) Anxiety disorder Bipolar 1 disorder ([facility]) Blood circulation, collateral Cellulitis chronic L lower leg COVID 12/08/2021 Depression Diabetes mellitus ([facility]) Type II, on insulin Disease of blood and blood forming organ Endometrial carcinoma ([facility]) 11/25/2020 Endometrial hyperplasia Foot ulcer ([facility]) Hx of blood clots RLE prior to amputation Hyperlipidemia Hypertension Lymphedema 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, RLE Morbidly obese ([facility]) Muscle weakness Osteomyelitis (HCC) Osteomyelitis ([facility]) 2019 RLE Other lack of coordination Other specified soft tissue disorders Other symbolic dysfunctions Schizophrenia ([facility]) Sleep apnea no CPAP Venous insufficiency SURGICAL HISTORY Past Surgical History: Procedure Laterality Date ABCESS DRAINAGE Right 09/09/2018 FOOT; [facility] COLONOSCOPY 09/19/[address] Hyde DILATION AND CURETTAGE OF UTERUS 05/18/2019 HYSTEROSCOPY 12/23/2021 LEG AMPUTATION THROUGH KNEE Right 06/16/2019 UPPER GASTROINTESTINAL ENDOSCOPY N/A 06/29/2023 Dr Sergio Sibley at [facility]; no specimens WISDOM TOOTH EXTRACTION CURRENT MEDICATIONS [...] DEPARTMENT COURSE and DIFFERENTIAL DIAGNOSIS/MDM: Vitals: Vitals: 01/26/24 2128 01/26/242128 BP: 124/63 Pulse: 83 Resp: 16 Temp: 36.6 C (97.9 F) TempSrc: Oral SpO2: 100% Weight: 132 kg (290 lb) Height: 1.676 m (5' 6") EKG: EKG was reviewed by myself. Physician EKG interpretation can be found in [facility] LABS: Labs Reviewed POCT GLUCOSE METER UNSOLICITED RESULTS - Abnormal Result Value Glucose 102 (*) Narrative: Performed by: [facility], [address] [place], [place] [id number] CLIA ID: [id number] POCT GLUCOSE METER UNSOLICITED RESULTS - Abnormal Glucose 111 (*) Narrative: Performed by: [facility], [address] [place] [address], [facility] [address] CLIA ID: [id number] POCT GLUCOSE METER UNSOLICITED RESULTS - Abnormal Glucose 101 (*) Narrative: Performed by: [facility], [address] [place] [address], [facility], [facility] [address] CLIA ID: [id number] All other labs were within normal range [...] Hypoglycemia PATIENT REFERRED TO: Jared Guzman [address] [facility] [id number] Schedule an appointment as soon as possible [...] Emergency Medicine Provider Art Zeng DO 01/26/246 documented in this encounter [facility] 01-26-2024 Hospital Discharg e instructions Art Zeng DO - 01/26/2024 10:15 PM EDT Call your doctor in the morning to schedule follow up. Eat regular meals and snacks. Return to the ED for recurrent symptoms or if any other problems arise. The following attachments cannot be sent through Care Everywhere.Low Blood Sugar Discharge Instructions, Adult ([place] Citizen)documented in this encounter [facility] 01-26-2024 Physician Emergency department Note I did not see or evaluate this patient in the ED. Mark Couch PA-C 01/26/242127 [email or web address] Work Phone: 01-26-2024 Physician Emergency department Note EMERGENCY DEPARTMENT ENCOUNTER Pt Name: Will Jacinto Birthdate 1965 Date of evaluation: 01/26/2024 ED Provider: Art Zeng DO CHIEF COMPLAINT Chief Complaint Patient presents with Hypoglycemia Patient reports from [facility] for low blood sugar. Facility states that it was 48. Patient was fed and EMS sugar was 76. On arrival to room BGM was 102. HISTORY OF PRESENT ILLNESS (Location/Symptom, Timing/Onset, Context/Setting, Quality, Duration, Modifying Factors, Severity) Note limiting factors. HPI Will Jacinto is a 58 y.o. adult who presents to the emergency department due to hypoglycemia. Blood sugar was 48 [facility], he says they gave him some pudding, [...] ENDOSCOPY N/A 06/29/2023 Dr Sergio Sibley at [facility]; no specimens WISDOM TOOTH EXTRACTION CURRENT MEDICATIONS [...] Value Glucose 102 (*) Narrative: Performed by: [facility], [address] [place] [id number] CLIA ID: [id number] POCT GLUCOSE METER UNSOLICITED RESULTS - Abnormal Glucose 111 (*) Narrative: Performed by: [facility], [address] [place] [address] CLIA ID: [id number] POCT GLUCOSE METER UNSOLICITED RESULTS - Abnormal Glucose 101 (*) Narrative: Performed by: [facility], [address] [place] [address] CLIA ID: [id number] All other labs were within normal range [...] Hypoglycemia PATIENT REFERRED TO: Jared Guzman [address] [facility] [place] [phone] Schedule an appointment as soon as [...] Emergency Medicine Provider Art Zeng DO 01/26/246 [facility] 01-24-2024 Telephone encounter Note Pt again appeared on ED [facility] for CT AP 01/22/24; noting stable 8mm nodule; unchanged from 08/2023 report. Pt to keep appt for fu with Herber Ramos 02/11/24. Navigators to follow. [facility] 01-24-2024 Miscellaneous Notes Pt again appeared [...] is unchanged since 08/08/2023. Referral: known to [facility]; Herber Ramos [facility] imaging n/a Pt is documented as never smoker Additional Risk Factors: na Planning CT low dose fu 01/06/24 will send to provider to confirm plan for fu. Pt has scheduled appt with Herber Ramos 02/11/24. documented in this encounter [facility] 01-22-2024 Emergency department Note EMERGENCY DEPARTMENT [...] side (HCC) Anxiety disorder Bipolar 1 disorder ([facility]) Blood circulation, collateral Cellulitis chronic L lower leg COVID 12/08/2021 Depression Diabetes mellitus ([facility]) Type II, on insulin Disease of blood and blood forming organ Endometrial carcinoma ([facility]) 11/25/2020 Endometrial hyperplasia Foot ulcer ([facility]) Hx of blood clots RLE prior to amputation Hyperlipidemia Hypertension Lymphedema 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, RLE Morbidly obese ([facility]) Muscle weakness Osteomyelitis (HCC) Osteomyelitis (HCC) 2019 RLE Other lack of coordination Other specified soft tissue disorders Other symbolic dysfunctions Schizophrenia ([facility]) Sleep apnea no CPAP Venous insufficiency SURGICAL HISTORY Past Surgical History: Procedure Laterality Date ABCESS DRAINAGE Right 09/09/2018 FOOT; [facility] COLONOSCOPY 09/19/[address] Hyde DILATION AND CURETTAGE OF UTERUS 05/18/2019 HYSTEROSCOPY 12/23/2021 LEG AMPUTATION THROUGH KNEE Right 06/16/2019 UPPER GASTROINTESTINAL ENDOSCOPY N/A 06/29/2023 Dr Sergio Sibley at [facility]; no specimens WISDOM TOOTH EXTRACTION CURRENT MEDICATIONS [...] Culture. Procedure Abnormality Status --------- ------ Complete Urinalysis[[id number]] Abnormal Final result Please view results for [...] Resp: Temp: SpO2: 96% Diagnoses as of 01/22/2431 Nausea and vomiting, unspecified vomiting type Cystitis [...] AM PATIENT REFERRED TO: Jared Guzman [address] [facility] [place] [phone] Schedule an appointment as soon as [...] Emergency Medicine Provider Jaquan Morris DO 01/22/24632 Pt presents to er from snf for abd pain. documented in this encounter [facility] 01-22-2024 Emergency department Triage note Pt presents to er from snf for abd pain. [facility] 01-22-2024 Physician Emergency department Note EMERGENCY [...] ENDOSCOPY N/A 06/29/2023 Dr Sergio Sibley at [facility]; no specimens WISDOM TOOTH EXTRACTION CURRENT MEDICATIONS [...] Culture. Procedure Abnormality Status --------- ------ Complete Urinalysis[[id number]] Abnormal Final result Please view results for [...] 05:54:09 AM PATIENT REFERRED TO: Jared Guzman [address] [facility] [place] [phone] Schedule an appointment as soon as [...] Medicine Provider Jaquan Morris DO 01/22/[address] [facility] 01-21-2024 Telephone encounter Note Called SNF and spoke to Marques who will leave a message for Suri. Notified them the the pts care can be moved to the [employer] office, and to just let the office know after her upcoming appt. [facility] 01-21-2024 Miscellaneous Notes Called SNF and spoke to Marques who will leave a message for Suri. Notified them the the pts care can be moved to the [employer] office, and to just let the office know after her upcoming appt. Called SNF and spoke to Quiana who stated that the person that I need to talk to has left for the day and requested that I called tomorrow. Name of caller: Suri Contact phone number: [phone] Relationship to Patient: [facility] Provider: MD Jesus Practice: [facility] Chief Complaint/Reason for Call: Suri called in to see if Pt's F/U appt could be moved to the [employer] location. Scheduling is into Jul. CAC did advise Suri and she stated she will keep the scheduled appt at [facility] location, but would like to know if Pt can be scheduled at the [employer] location for his next f/u appt. Please advise Best time of day caller can be reached: Any Patient advised that office/PCP has 24-48 business hours to return their call: N/A documented in this encounter [facility] 01-20-2024 Telephone encounter Note Called SNF and spoke to Quiana who stated that the person that I need to talk to has left for the day and requested that I called tomorrow. [facility] 01-20-2024 Telephone encounter Note Name of caller: Suri Contact phone number: [phone] Relationship to Patient: [facility] Provider: MD Jesus Practice: [facility] Chief Complaint/Reason for Call: Suri called in to see if Pt's F/U appt could be moved to the [employer] location. Scheduling is into Jul. CAC did advise Suri and she stated she will keep the scheduled appt at [facility] location, but would like to know if Pt can be scheduled at the [employer] location for his next f/u appt. Please advise Best time of day caller can be reached: Any Patient advised that office/PCP has 24-48 business hours to return their call: N/A [facility] 01-20-2024 Telephone encounter Note Faxed recommendation to [facility] [facility]([phone]). [facility] 01-20-2024 Miscellaneous Notes Faxed recommendation to [facility]([phone]). Please keep doses the same thank you Images from the original note were not included. Patient's BGL documented in this encounter [email or web address] 01-19-2024 Telephone encounter Note Please keep doses the same thank you [facility] Work Phone: 01-19-2024 Telephone encounter Note Images from the original note were not included. Patient's BGL [email or web address] 01-04-2024 Telephone encounter Note Defer CT chest (imaging has been cancelled) Keep appt schedule 02/11/24 to review next steps. [email or web address] 01-04-[address] chest (imaging has been cancelled) Keep appt schedule 02/11/24 to review next steps. Pt appeared on ED nuance search for lung nodules after CT AP 12/31/23 revealed the following: LOWER CHEST: An 8 mm nodule is present within the right middle lobe. This is unchanged since 08/08/2023. Referral: known to [facility]; Herber [facility] imaging n/a Pt is documented as never smoker Additional Risk Factors: na Planning CT low dose fu 01/06/24 will send to provider to confirm plan for fu. Pt has scheduled appt with Herber Ramos 02/11/24. documented in this encounter [facility] 01-03-2024 Telephone encounter Note Pt appeared on ED nuance search for lung nodules after CT AP 12/31/23 revealed the following: LOWER CHEST: An 8 mm nodule is present within the right middle lobe. This is unchanged since 08/08/2023. Referral: known to [facility]; [facility] imaging n/a Pt is documented as never smoker Additional Risk Factors: na Planning CT low dose fu 01/06/24 will send to provider to confirm plan for fu. Pt has scheduled appt with Herber Ramos 02/11/24. [facility] 12-29-2023 Emergency department Note Hans Larkin here for transfer back to facility. Sera Noguera RN 12/29/[address] [facility] 12-29-2023 Emergency department Note Hans Larkin here for transfer back to facility. Sera Noguera RN 12/29/23 1009 Report from offload medic, pt assisted using using bedpan at this time. Awaiting squad DC back to [facility] Denise Sutherland RN 12/29/23 0748 DM approx slat pickler 830a AFTAB Hernandez 12/29/23 0634 Pt passed PO challenge w/o difficulty. Todd Damon 12/29/23 0143 EMERGENCY DEPARTMENT ENCOUNTER Pt Name: Maria Luisa Jacinto Birthdate 1965 Date of evaluation: 12/28/2023 ED Provider: Ramsey Zavaleta DO CHIEF COMPLAINT Chief Complaint Patient presents with Nausea Vomiting Pt arrived by EMS from [facility] due to N/V for 1 month. Upon [...] this timeframe. He is a resident at [facility] where his sugars are monitored regularly and [...] Acquired absence of other toe(s), unspecified side ([facility]) Anxiety disorder Bipolar 1 disorder ([facility]) Blood circulation, collateral Cellulitis chronic L lower leg COVID 12/08/2021 Depression Diabetes mellitus ([facility]) Type II, on insulin Disease of blood and blood forming organ Endometrial carcinoma ([facility]) 11/25/2020 Endometrial hyperplasia Foot ulcer ([facility]) Hx of blood clots RLE prior to amputation Hyperlipidemia Hypertension Lymphedema 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, RLE Morbidly obese ([facility]) Muscle weakness Osteomyelitis ([facility]) Osteomyelitis ([facility]) 2019 RLE Other lack of coordination Other specified soft tissue disorders Other symbolic dysfunctions Schizophrenia ([facility]) Sleep apnea no CPAP Venous insufficiency SURGICAL HISTORY Past Surgical History: Procedure Laterality Date ABCESS DRAINAGE Right 09/09/2018 FOOT; [facility] COLONOSCOPY 09/19/[address] Hyde DILATION AND CURETTAGE OF UTERUS 05/18/2019 HYSTEROSCOPY 12/23/2021 LEG AMPUTATION THROUGH KNEE Right 06/16/2019 UPPER GASTROINTESTINAL ENDOSCOPY N/A 06/29/2023 Dr Sergio Sibley at [facility]; no specimens WISDOM TOOTH EXTRACTION CURRENT MEDICATIONS [...] Culture. Procedure Abnormality Status --------- ------ Complete Urinalysis[[id number]] Please view results for these tests on [...] Resident 12/29/23 0416 documented in this encounter [facility] 12-29-2023 Emergency department Note Report from offload medic, pt assisted using using bedpan at this time. Awaiting squad DC back to [facility] Denise Sutherland RN 12/29/[address] [facility] 12-29-2023 Emergency department Note DM approx slat pickler 830a AFTAB Hernandez 12/29/[address] [facility] 12-29-2023 Hospital Discharg e instructions Ramsey Zavaleta DO - 12/29/2023 3:34 AM EST Return to the ED with worsening vomiting, abdominal pain, or any other concerns. Follow-up with your PCP for reassessment. documented in this encounter [facility] 12-29-2023 Emergency department Note Pt passed PO challenge w/o difficulty. Todd Damon 12/29/[address] [facility] 12-28-2023 Miscellaneous Notes Emergency Department Encounter [facility] EMERGENCY DEPT Patient: Will Jacinto : [...] MD 12/29/23 0614 documented in this encounter [facility] 12-28-2023 Note Formatting of this n ote is different from the original. Emergency Department Encounter [facility] EMERGENCY DEPT Patient: Will Jacinto : [...] for clarification.) Edwin Bustos MD Acute Care [facility] Edwin Bustos MD 12/29/[address] [facility] Phone: 12-28-2023 Note Formatting of this n ote is different from the original. Emergency Department Encounter [facility] EMERGENCY DEPT Patient: Will Jacinto : [...] dictating provider for clarification.) Edwin Bustos MD [facility] Edwin Bustos MD 12/29/[address] [facility] Phone: 12-28-2023 Physician Emergency department Note EMERGENCY DEPARTMENT ENCOUNTER Pt Name: Maria Luisa Jacinto Birthdate 1965 Date of evaluation: 12/28/2023 ED Provider: Ramsey Zavaleta DO CHIEF COMPLAINT Chief Complaint Patient presents with Nausea Vomiting Pt [facility] EMS [facility] due to N/V for 1 month. Upon [...] this timeframe. He is a resident at [facility] where his sugars are monitored regularly and [...] side (HCC) Anxiety disorder Bipolar 1 disorder ([facility]) Blood circulation, collateral Cellulitis chronic L lower leg COVID 12/08/2021 Depression Diabetes mellitus ([facility]) Type II, on insulin Disease of blood and blood forming organ Endometrial carcinoma ([facility]) 11/25/2020 Endometrial hyperplasia Foot ulcer ([facility]) Hx of blood clots RLE prior to amputation Hyperlipidemia Hypertension Lymphedema 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, RLE Morbidly obese ([facility]) Muscle weakness Osteomyelitis (HCC) Osteomyelitis (HCC) 2019 RLE Other lack of coordination Other specified soft tissue disorders Other symbolic dysfunctions Schizophrenia ([facility]) Sleep apnea no CPAP Venous insufficiency SURGICAL HISTORY Past Surgical History: Procedure Laterality Date ABCESS DRAINAGE Right 09/09/2018 FOOT; ACH COLONOSCOPY 09/19/[address] Hyde DILATION AND CURETTAGE OF UTERUS 05/18/2019 HYSTEROSCOPY 12/23/2021 LEG AMPUTATION THROUGH KNEE Right 06/16/2019 UPPER GASTROINTESTINAL ENDOSCOPY N/A 06/29/2023 Dr Sergio Sibley at [facility]; no specimens WISDOM TOOTH EXTRACTION CURRENT MEDICATIONS [...] Culture. Procedure Abnormality Status --------- ------ Complete Urinalysis[[id number]] Please view results for these tests on [...] 0413 Ramsey Zavaleta DO Resident 12/29/23 0416 [facility] 12-28-2023 Telephone encounter Note Faxed recommendation to [facility]. Thank you! [facility] 12-28-2023 Miscellaneous Notes Faxed recommendation to [facility]. Thank you! Please keep doses the same thank you Images from the original note were not included. Patient's BGL documented in this encounter [facility] 12-28-2023 Telephone encounter Note Please keep doses the same thank you [facility] 12-28-2023 Telephone encounter Note Images from the original note were not included. Patient's BGL [facility] 12-23-2023 Procedure note Pt refused to finish last 2 hours of GES, only obtained intial [address] [facility] 12-23-2023 Procedure note Pt refused to finish last 2 hours of GES, only obtained intial 2 hrs of test. documented in this encounter [facility] 12-14-2023 Telephone encounter Note Called [facility] and was on an extended hold. I faxed over recommendation and noted for someone to give us a call to ensure they received the recommendation. Thank you! [facility] 12-14-2023 Miscellaneous Notes Called [facility] and was on an extended hold. [...] same symptoms. Since patient is back to [facility], patient continues to have some emesis and [...] to Dr Lee. Please, advise Ninfa at [facility] of any medication changes and care advise. Phone number is [phone], ask for BEE Ocasio. Ninfa states she did fax over patient glucometer's for a week. Reason for Disposition Blood glucose > 300 mg/dL (16.7 mmol/L) AND two or more times in a row Protocols used: Diabetes - High Blood Bfaln-HFORU-YU documented in this encounter [facility] 12-13-2023 Telephone encounter Note Please tell staff that they can give 1/2 the usual dose of u500 insulin if the patient is not eating thank you [facility] 12-13-2023 Telephone encounter Note Images from the original note were not included. Patient's BGL is below for your review. Thank you! [facility] 12-13-2023 Telephone encounter Note S: Patient spoke with [facility] nurse regarding high glucometer's and insulin dose questions B: Onset of symptoms/concern about a week A: Patient seen in ER on 12/09/2023 for same symptoms. Since patient is back to [facility], patient continues to have some emesis and [...] to Dr Lee. Please, advise Ninfa at [facility] of any medication changes and care advise. Phone number is [phone], ask for BEE Ocasio. Ninfa states she did fax over patient glucometer's for a week. Reason for Disposition Blood glucose > 300 mg/dL (16.7 mmol/L) AND two or more times in a row Protocols used: Diabetes - High Blood Mgvvq-SASBD-SE [facility] 12-09-2023 Emergency department Note This nurse received report from Margaret Coleman RN 12/09/[address] [facility] 12-09-2023 Emergency department Note This nurse received report from Margaret Coleman RN 12/09/23 0728 ED RT Marques called for VBG. Marques states he will be down Dalila Mendes RN 12/09/23 0559 Pt presents to ED c/o nausea and vomiting and headache. EMS states several residents have COVID at facility. Pt states she vomiting 3x today. documented in this encounter [facility] 12-09-2023 Hospital Discharg e instructions Caridad [...] sent through Care Everywhere.Dehydration Discharge Instructions, Adult ([place] Citizen)Nausea and Vomiting, Adult ED ([place] Citizen)documented in this encounter [email or web address] [email or web address] 12-09-2023 Note Sinus rhythm Abnormal R-wave progression, late transition Left ventricular hypertrophy No significant change compared to 08/17/2023 Electronically Signed On 12-09-2023 06:18:33 EST by Caridad Zachstacie [facility] 12-09-2023 Note Sinus rhythm Abnormal R-wave progression, late transition Left ventricular hypertrophy No significant change compared to 08/17/2023 Electronically Signed On 12-09-2023 06:18:33 EST by Caridad Barnard [facility] 12-09-2023 Emergency department Note ED RT Marques called for [facility]. Marques states he will be down Dalila Mendes RN 12/09/23 0559 [email or web address] [email or web address] 12-09-2023 Emergency department Triage note Pt presents to ED c/o nausea and vomiting and headache. EMS states several residents have COVID at facility. Pt states she vomiting 3x today. [email or web address] [email or web address] 12-06-2023 Telephone encounter Note Images from the original note were not included. Patient's BGL [email or web address] [email or web address] 12-06-2023 Miscellaneous Notes Images from the original note were not included. Patient's BGL documented in this encounter [email or web address] [email or web address] 11-25-2023 Note Addended by: GERONIMO LEE on: 11/25/2023 12:06 PM Modules accepted: Orders [email or web address] [email or web address] 11-25-2023 Note Addended by: GERONIMO LEE on: 11/25/2023 12:06 PM Modules accepted: Orders [facility] 11-25-2023 Miscellaneous Notes Addended by: GERONIMO LEE on: 11/25/2023 12:06 PM Modules accepted: Orders Addended by: RADHA BUSBY on: 11/25/2023 11:59 AM Modules accepted: Orders Called nursing facility and spoke with nurse Ninfa. I relayed the message and she verbalized understanding. Updated RX is pending. Thank you! Please increase doses to 200 units with each meal thank you Called [facility] and spoke with nurse don. She verified that patient is taking humulin R U500(250 units with breakfast/175 units with lunch and dinner Please check on insulin doses; will need to increase thank you Images from the original note were not included. Patient's BGL documented in this encounter [facility] 11-25-2023 Note Addended by: RADHA BUSBY on: 11/25/2023 11:59 AM Modules accepted: Orders [facility] 11-25-2023 Note Addended by: RADHA BUSBY on: 11/25/2023 11:59 AM Modules accepted: Orders [email or web address] [email or web address] 11-25-2023 Telephone encounter Note Called nursing facility and spoke with nurse Ninfa. I relayed the message and she verbalized understanding. Updated RX is pending. Thank you! [email or web address] [email or web address] 11-24-2023 Telephone encounter Note Please increase doses to 200 units with each meal thank you [employer] Work Phone: 11-24-2023 Miscellaneous Notes Please increase doses to 200 units with each meal thank you Called [facility] and spoke with nurse don. She verified that patient is taking humulin R U500(250 units with breakfast/175 units with lunch and dinner Please check on insulin doses; will need to increase thank you Images from the original note were not included. Patient's BGL documented in this encounter [email or web address] [email or web address] 11-24-2023 Telephone encounter Note [facility] and spoke with nurse ochoa. She verified that patient is taking humulin R U500(250 units with breakfast/175 units with lunch and dinner [email or web address] [email or web address] 11-23-2023 Telephone encounter Note Please check on insulin doses; will need to increase thank you [employer] 11-23-2023 Telephone encounter Note Images from the original note were not included. Patient's BGL [employer] 11-17-2023 Note HNO ID: [id number] Author: ELDA REAVES PA-C Service: ? Author Type: Physician Customs Brokerage Manager Type: Progress Notes Filed: 11/17/2023 10:00 Note Text: CHIEF COMPLAINT: Patient presents with: Nausea AND Vomiting HPI: Resident at [facility], SNF and rehab. Will Jacinto is a 58 year old adult with PMHx positive for anxiety, bipolar, HTN, HLD, DM II who presents for Nausea AND Vomiting. On Protonix 40 mg daily. Recent [facility] admission 2/2 complications from DM, hypoglycemia, [...] Never Substance Us (more content not included)... [facility] 11-09-2023 Telephone encounter Note BGL under media for review. [facility] 11-09-2023 Miscellaneous Notes BGL under media for review. Nabil is faxing over patient's bgl right now. Name of caller: Nabil Contact phone number: [phone] Relationship to Patient: [facility] [place] [facility] Provider: Dr Lee Practice: Endocrinology Chief Complaint/Reason for Call: Nabil is requesting to be advised on insulin parameters for Amria Luisa. Nabil states Maria Luisa has not [...] their call: Yes documented in this encounter [facility] 11-09-2023 Telephone encounter Note Nabil is faxing over patient's bgl right now. [facility] 11-09-2023 Telephone encounter Note Name of caller: Nabil Contact phone number: [phone] Relationship to Patient: [facility] [place] Provider: Dr Lee Practice: Endocrinology Chief Complaint/Reason [...] business hours to return their call: Yes [facility] 10-27-2023 History of Presen t illness Narrative . ENDOCRINOLOGY [address] COUNT INCLUDES THE [facility] [id number] Dept: [phone] Dept Visit type: Established patient Patient was [...] stated that they are currently in the [facility]. If the patient is a minor, permission [...] the skin daily (before lunch). Lactobacillus Acid-Pectin (Acidophilus/Elbert Pectin) tablet Take 1 tablet by mouth [...] Acquired absence of other toe(s), unspecified side ([facility]) Anxiety disorder Bipolar 1 disorder ([facility]) Blood circulation, collateral Cellulitis chronic L lower leg COVID 12/08/2021 Depression Diabetes mellitus ([facility]) Type II, on insulin Disease of blood and blood forming organ Endometrial carcinoma ([facility]) 11/25/2020 Endometrial hyperplasia Foot ulcer ([facility]) Hx of blood clots RLE prior to amputation Hyperlipidemia Hypertension Lymphedema 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 10-16-2023 History of Presen t illness Narrative [facility] service called and notified this nurse that they won't be able to pick patient up until 0200 d/t bariatric patient and requires 2 crews. Spoke with staff and [facility] and per staff will still be able to accept patient at that time. [facility] aware ok to transport patient at 0200 to [facility]. Patient updated on delay in transportation. Department of Internal Medicine Division of Endocrinology, Diabetes, & Metabolism Endocrinology Note Patient Name: Will Jacinto : 1965 AGE: 57 y.o. Room[facility]Bed: [facility] A Admission Date: 10/07/2023 Visit Date: 10/16/2023 Reason for Endocrine Consult: U-500 dosing, hypoglycemia Provider/Team Requesting Consult: [facility] PCP: Jared Steele Sweeper Operator Highways: Dr. Lee ASSESSMENT: Type 2 diabetes, uncontrolled, [...] and [facility]/unresponsiveness due to poor PO intake. Type of DM: 2 Onset of DM: 1991 Home DM Medication Regimen: U-500 insulin - 285 units before breakfast/260 units before lunch/285 units before dinner , Trulicity 4.5 mg weekly DM control (last A1c/glucose data): 7.7% on current admission Resides at the [facility] Interim history: Patient was seen at bedside Good PO intake Has intermittent nausea; no vomiting or AP Drinks juice occasionally ID following - on IV Abx; has PICC No SOB or CP Plan for DC to [facility] Glucose Date/Time Value Ref Range Status 10/16/2023 [...] Units, SubCUTAneous, Daily before lunch Lactobacillus Acid-Pectin (Acidophilus/Elbert Pectin) tablet 1 tablet, Oral, 2 times [...] found for: CHOLHDLRATIO No results found for: [id number] Lab Results Component Value Date TSH 2.356 [...] side (HCC) Anxiety disorder Bipolar 1 disorder ([facility]) Blood circulation, collateral Cellulitis [...] ENDOSCOPY N/A 06/29/2023 Dr Sergio Sibley at [facility]; no specimens WISDOM TOOTH EXTRACTION Allergy(ies): No [...] were not included. Hospitalist Progress Note 10/16/2023 [id number]: Please page [facility] night Hospitalist for any issues. Admit Date: 10/07/2023 PCP: Jared Guzman Room#: W4429/W4-550 A Brief hospital course: Patient admitted 10/07/2023 for hypoglycemia 2/2 insulin use with poor PO intake, hypothermia, ?sepsis. 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 Initially presented from [facility] with hypoglycemia and unresponsiveness, POC glucose [...] found for: "DDIMER", "PROCAL", "COVID19", "HGBA1C", "TSH", "DSDABKAQ44", "FOLATE", "VITD25", "CHOL", "TRIG", "HDL", LDLCALC Urine [...] mL, 20 mL, Oral, q6h PRN, Marcio Moore MD ARIPiprazole (Abilify) tablet 10 mg, 10 mg, Oral, q24h, JEREMY Liao CNP, 10 mg at 10/15/23 1623 aspirin EC tablet 81 mg, 81 mg, Oral, Daily, JEREMY Liao CNP, 81 mg at 12/08/23 0944 atorvastatin (Lipitor) tablet 10 mg, 10 [...] Daily, JEREMY Liao CNP, 180 mg at 10/15/23943 enoxaparin (Lovenox) syringe [...] g, Oral, PRN, Rachael Robertson APRN - [employer], 15 g at 10/10/23 0216 heparin flush injection 250 Units, 250 Units, IntraCATHeter, q12h, Funmi Askew MD, 250 Units at 10/16/23 0405 heparin flush injection 250 Units, 250 Units, IntraCATHeter, PRN, Funmi Askew MD Insulin Lispro (Humalog) injection 0-18 Units, 0-18 Units, SubCUTAneous, TID FAITH, Amrita Garcia MD, 18 Units at 10/15/23 [...] mg, 4 mg, IntraVENous, q6h PRN, Marcio Moore MD pantoprazole (ProtoNix) EC tablet 40 mg, 40 mg, Oral, qAM AC, JEREMY Liao CNP, 40 mg at 10/16/23 0619 polyethylene glycol (PEG) 3350 (Miralax) packet 17 g, 17 g, Oral, Daily PRN, JEREMY Liao CNP polyethylene glycol (PEG) 3350 (Miralax) packet 17 g, 17 g, Oral, Daily, Rachael Robertson APRN - [employer], 17 g at 10/15/23 0943 prochlorperazine (Compazine) injection 5 mg, 5 mg, IntraVENous, q6h PRN, Marcio Moore MD, 5 mg at 10/13/23 2140 sodium [...] or tomorrow - Location - Skilled Facility, [facility] - Pending the following - monitor glucose levels through dinner, bed hold no auth req'd and OPAT already sent to facility Marcio Moore MD Division of Hospitalist Medicine Inpatient Medical Services/[facility] Data: Moderate (3x CAT1 -OR- 1x CAT2 -OR- 1x CAT3) Complexity: Acute illness or injury posing a threat to life or body function (HIGH). Risk: Prescription drug/IVF/colloid was initiated, discontinued, adjusted; or reviewed with decision to maintain current orders (MOD). Estimated MDM: Medium (83548/52420) or higher Note: the above MDM determinations [...] Jacinto : 1965 AGE: 57 y.o. Room/Bed: [facility] A Admission Date: 10/07/2023 Visit Date: 10/15/2023 Reason for Endocrine Consult: U-500 dosing, hypoglycemia Provider/Team Requesting Consult: [facility] PCP: Jared Guzman Outpt Sweeper Operator Highways: Dr. Lee ASSESSMENT: Type 2 diabetes, uncontrolled, [...] BF for BG 498) -- discussed with ACUPRESSURE THERAPIST/RN Continue Humalog high dose scale with meals [...] and [facility]/unresponsiveness due to poor PO intake. Type of DM: 2 Onset of DM: 1991 Home DM Medication Regimen: U-500 insulin - 285 units before breakfast/260 units before lunch/285 units before dinner , Trulicity 4.5 mg weekly DM control (last A1c/glucose data): 7.7% on current admission [facility] at the [facility] Interim history: Patient was seen at bedside [...] SOB or CP Plan for DC to [facility] Date/Time Value Ref Range Status 10/15/2023 09:29 [...] before lunch/285 units before dinner Lactobacillus Acid-Pectin (Acidophilus/Elbert Pectin) tablet 1 tablet, Oral, 2 times [...] found for: CHOLHDLRATIO No results found for: [id number] Lab Results Component Value Date TSH 2.356 11/26/2020 Radiology reportsas per the Radiologist Radiology: CT abdomen pelvis w contrast Result Date: 10/08/2023 [facility] 1965 [id number] Exam Date/Time: 10/08/2023 09:36 Procedure: CT ABDOMEN [...] 10/07/2023 [facility]: [facility] 1965 [id number] Exam Date/Time: 10/07/2023 07:31 Procedure: XR CHEST [...] 10/07/2023 Patient Name: WILL JACINTO : 1965 [facility]#: [id number] Exam Date/Time: 10/07/2023 07:29 Procedure: CT HEAD [...] ENDOSCOPY N/A 06/29/2023 Dr Sergio Sibley at [facility]; no specimens WISDOM TOOTH EXTRACTION Allergy(ies): No [...] were not included. Hospitalist Progress Note 10/15/[phone]: Please page [facility] night Hospitalist for any [...] bipolar type, transgender (F2M). Initially presented from [facility] with hypoglycemia and unresponsiveness, POC glucose [...] Intake/Output Summary (Last 24 hours) at 10/15/2023 0925 Last data filed at 10/15/2023 0500 Gross per 24 hour Intake 720 ml Output 1450 ml Net -730 ml 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 other toe(s), unspecified side (HCC) Anxiety disorder Bipolar 1 disorder ([facility]) Blood circulation, collateral Cellulitis chronic L lower leg COVID 12/08/2021 Depression Diabetes mellitus (HCC) Type II, on insulin Disease of blood and blood forming organ Endometrial carcinoma (HCC) 11/25/2020 Endometrial hyperplasia Foot ulcer ([facility]) Hx of blood clots [...] of today's encounter. HEME: Recent Labs 10/13/23 011 WBC 9.1 RBC 3.73 HGB 10.5* HCT 31.7 MCV 84.9 RDW 14.7* PLT 324 CHEM: Recent Labs 10/13/23 01110/14/23 0315 NA 129* 134* K 3.8 3.9 [...] found for: "DDIMER", "PROCAL", "COVID19", "HGBA1C", "TSH", "[id number]", "FOLATE", "VITD25", "CHOL", "TRIG", "HDL", LDLCALC Urine [...] mL, 20 mL, Oral, q6h PRN, Marcio Moore MD ARIPiprazole (Abilify) tablet 10 mg, 10 [...] 12.5 g, 12.5 g, IntraVENous, PRN, JEREMY Lioa CNP dilTIAZem CD (Cardizem CD) 24 hr capsule 180 mg, 180 mg, Oral, Daily, JEREMY Liao CNP, 180 mg at 10/14/23 0920 enoxaparin (Lovenox) syringe 30 mg, 30 mg, SubCUTAneous, 2 times per day, JEREMY Liao CNP, 30 mg at 10/14/232005 ertapenem (INVanz) 1,000 mg in sodium chloride 0.9 % 50 mL IVPB Mini-Bag Plus, 1,000 mg, IntraVENous, q24h, Mukul Chucoh Coreas DO, Stopped at 10/14/23 1617 FLUoxetine [...] 0-18 Units, SubCUTAneous, TID , Amrita Garcia MD, 12 Units at 10/14/23 1730 Insulin Lispro (Humalog) injection 90 Units, 90 Units, SubCUTAneous, TID , Анна Villela MD insulin NPH (Isophane) (HumuLIN [...] mg, 4 mg, IntraVENous, q6h PRN, Marcio Moore MD pantoprazole (ProtoNix) EC tablet 40 mg, 40 mg, Oral, qAM AC, Rachael Robertson APRN - KRANTHI, 40 mg at 10/15/23 0619 polyethylene glycol (PEG) 3350 (Miralax) packet 17 g, 17 g, Oral, Daily PRN, JEREMY Liao CNP polyethylene glycol (PEG) 3350 (Miralax) packet 17 g, 17 g, Oral, Daily, JEREMY Liao CNP, 17 g at 10/13/23 0809 prochlorperazine (Compazine) injection 5 mg, 5 mg, IntraVENous, q6h PRN, Marcio Moore MD, 5 mg at 10/13/23 2140 sodium [...] - 10/16 - [facility] - Pending the following - final endo recs, bed hold no auth req'd and OPAT already sent to facility Marcio Moore MD Division of Hospitalist Medicine Inpatient Medical Services/[facility] Data: Moderate (3x CAT1 -OR- 1x CAT2 -OR- 1x CAT3) Complexity: Acute illness or injury posing a threat to life or body function (HIGH). Risk: Prescription drug/IVF/colloid was initiated, discontinued, adjusted; or reviewed with decision to maintain current orders (MOD). Estimated MDM: Medium (64083/83565) or higher Note: the above MDM determinations are made by me for my own use to estimate my end-of-day billing codes. However, documentation is reviewed by professional coders; following their review of documentation, and in accordance with current AMA CPT, CMS, and ACDIS guidelines, the actual billing code(s) may differ from my estimate. Images from the original note were not included. [facility] - Infectious Diseases Attending Progress Note Subjective- [...] be of low complexity. Mukul Coreas DO [facility] Infectious Diseases Office Tel. 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 for 4 days) Weight Loss: Unable to assess (no new/acute weight to assess) Body Fat Loss: No significant body fat loss Muscle Mass Loss: No significant muscle mass loss Fluid Accumulation: Mild Extremities, Generalized Camp Manager Strength: Not Performed Nutrition Assessment: Pt with previously noted PMH including DM w/ gastroparesis (documented as 'brittle') & polyneuropathy, HTN, HLD, s/p R AKA presented initially from nursing facility due to hypoglycemia and unresponsiveness; pt was noted to have poor PO intake for at least 4 days 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 SPECIALIST in addition to N/V, when pt was [...] limited documentation in chart to review, per junior mechanical engineer appears pt had 2 small yogurts this [...] is likely r/t uncontrolled DM; [facility] pt enjoys/tolerates some meals, others do [...] 152 kg (335 lb) (03/08/23 Deedee scale) Dodge Body Weight (lbs) (Calculated): 130 lbs Dodge Body Weight (Kg) (Calculated): 59 kg Weight Adjustment For: Amputation % Weight Adjustment: 10.1 - AKA Total Adjusted Percentage (Calculated): 10.1 Adjusted Dodge Body Weight (lbs) (Calculated): 116.9 lbs Adjusted Dodge Body Weight (kg) (Calculated): 53.14 kg BMI [...] Ana Reyes RD Contact: Secure chat or *[phone] Department of Internal Medicine Division of Endocrinology, Diabetes, & Metabolism Endocrinology Note Patient Name: Will Jacinto : 1965 AGE: 57 y.o. Room/Bed: [facility] Admission Date: 10/07/2023 Visit Date: 10/14/2023 Reason for Endocrine Consult: U-500 dosing, hypoglycemia Provider/Team Requesting Consult: IMS PCP: Jared Guzman Outpt Sweeper Operator Highways: Dr. Lee ASSESSMENT: Type 2 diabetes with [...] and [facility]unresponsiveness due to poor PO intake. Type of DM: 2 Onset of DM: 1991 Home DM Medication Regimen: U-500 insulin - 285 units before breakfast/260 units before lunch/285 units before dinner , Trulicity 4.5 mg weekly DM control (last A1c/glucose data): 7.7% on current admission Resides at [facility] Interim history: Patient was seen at bedside Poor PO intake yesterday due to nausea No vomiting or AP Nausea better today Ate BF -- 2 yogurts Not drinking Ensure, mostly diet Coke Pt was off his Pure wick - urinated on the bed pad ID following - on IV Abx Plan for DC to [facility] Date/Time Value Ref Range Status 10/14/2023 07:52 [...] before lunch/285 units before dinner Lactobacillus Acid-Pectin (Acidophilus/Elbert Pectin) tablet 1 tablet, Oral, 2 times [...] found for: CHOLHDLRATIO No results found for: [id number] Lab Results Component Value Date TSH 2.356 [...] side (HCC) Anxiety disorder Bipolar 1 disorder ([facility]) Blood circulation, collateral Cellulitis chronic L lower leg COVID 12/08/2021 Depression Diabetes mellitus ([facility]) Type II, on insulin [...] ENDOSCOPY N/A 06/29/2023 Dr Sergio Sibley at [facility]; no specimens WISDOM TOOTH EXTRACTION Allergy(ies): No [...] were not included. Hospitalist Progress Note 10/14/2023 [phone]: Please page [facility] night Hospitalist for any issues. Admit Date: [...] bipolar type, transgender (F2M). Initially presented from [facility] with hypoglycemia and unresponsiveness, POC glucose [...] Acquired absence of other toe(s), unspecified side ([facility]) Anxiety disorder Bipolar 1 disorder ([facility]) Blood circulation, collateral Cellulitis chronic L lower leg COVID 12/08/2021 Depression Diabetes mellitus ([facility]) Type II, on insulin Disease of blood and blood forming organ Endometrial carcinoma ([facility]) 11/25/2020 Endometrial hyperplasia Foot ulcer ([facility]) Hx of blood clots RLE prior to amputation Hyperlipidemia Hypertension Lymphedema 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, RLE Morbidly obese ([facility]) Muscle weakness Osteomyelitis ([facility]) Osteomyelitis ([facility]) 2019 RLE Other lack of coordination Other specified soft tissue disorders Other symbolic dysfunctions Schizophrenia ([facility]) Sleep apnea no CPAP [...] 8.8 ANIONGAP 10 10 7 Recent Labs 10/13/23117 MG 1.7 (MG, CRP, SEDRATE, and CKTOTAL [...] found for: "DDIMER", "PROCAL", "COVID19", "HGBA1C", "TSH", "[id number]", "FOLATE", "VITD25", "CHOL", "TRIG", "HDL", LDLCALC Urine [...] mg, Oral, q24h, Rachael Robertson APRN - [employer], 10 mg at 10/13/23 1745 aspirin EC tablet 81 mg, 81 mg, Oral, Daily, Rachael Robertson APRN - KRANTHI, 81 mg at 10/13/23 0809 atorvastatin (Lipitor) tablet 10 mg, 10 mg, Oral, Nightly, Rachael Robertson APRN - [employer], 10 mg at 10/13/23 214 clotrimazole (Lotrimin) 1 % cream, , Topical, BID, Rachael Robertson APRN - KRANTHI, Given at 10/13/23 214 dextrose 5 % infusion, 100 mL/hr, IntraVENous, PRN, Rachael Robertson APRN - [employer], Stopped at 10/10/23 0552 dextrose 50 % solution 12.5 g, 12.5 g, IntraVENous, PRN, Rachael Robertson APRN - [employer] dilTIAZem CD (Cardizem CD) 24 hr capsule 180 mg, 180 mg, Oral, Daily, Rachael Robertson APRN - [employer], 180 mg at 10/13/23 0809 enoxaparin (Lovenox) syringe 30 mg, 30 mg, SubCUTAneous, 2 times per day, JEREMY Liao CNP, 30 mg at 10/13/23 214 ertapenem (INVanz) 1,000 mg in sodium chloride 0.9 % 50 mL IVPB Mini-Bag Plus, 1,000 mg, IntraVENous, q24h, Mukul Walshluz Coreas DO, Stopped at 10/13/23 1508 FLUoxetine (PROzac) capsule 40 mg, 40 mg, Oral, Daily, JEREMY Liao CNP, 40 mg at 10/13/23 0809 gabapentin (Neurontin) capsule 100 mg, 100 mg, Oral, BID, JEREMY Liao CNP, 100 mg at 10/13/23 2145 glucagon (human recombinant) injection 1 mg, 1 [...] Robertson APRN - KRANTHI, 20 mg at 10/13/232141 melatonin tablet 10 mg, 10 mg, Oral, Nightly, Rachael Robertson APRN - [employer], 10 mg at 10/13/232145 metoprolol tartrate (Lopressor) tablet 25 mg, 25 mg, Oral, BID, Rachael Robertson APRN - [employer], 25 mg at 10/13/232141 ondansetron (Zofran) tablet 4 mg, 4 mg, Oral, q6h PRN, Rachael Robertson APRN - KRANTHI, 4 mg at 10/14/23 0611 pantoprazole (ProtoNix) EC tablet 40 mg, 40 mg, Oral, qAM AC, Rachael Robertson APRN - [employer], 40 mg at 10/14/23 0611 polyethylene glycol (PEG) 3350 (Miralax) packet 17 g, 17 g, Oral, Daily PRN, Rachael Robertson APRN - [employer] polyethylene glycol (PEG) 3350 (Miralax) packet 17 g, 17 g, Oral, Daily, Rachael Robertson APRN - KRANTHI, 17 g at 10/13/23 0809 prochlorperazine (Compazine) injection 5 mg, 5 mg, IntraVENous, q6h PRN, Mayda Olmstead MD, 5 mg at 10/13/232139 sodium chloride [...] - 10/15 - Location - Skilled Facility, [facility] - Pending the following - bed hold no auth req'd Marcio Moore MD Division of Hospitalist Medicine Inpatient Medical Services/[facility] Data: Moderate (3x CAT1 -OR- 1x CAT2 -OR- 1x CAT3) Complexity: Acute illness or injury posing a threat to life or body function (HIGH). Risk: Prescription drug/IVF/colloid was initiated, discontinued, adjusted; or reviewed with decision to maintain current orders (MOD). Estimated MDM: Medium (77466/71864) or higher Note: the above MDM determinations [...] SpO2 on RA, 75 HR, BG 232. GRAIN SACKER called. 2118 vitals: 152/75, HR 75, DjM628% on RA Department of Internal Medicine Division of Endocrinology, Diabetes, & Metabolism Endocrinology Note Patient Name: Will Jacinto : 1965 AGE: 57 y.o. Room/Bed: [facility]/[address] Admission Date: 10/07/2023 Visit Date: 10/13/2023 Reason for Endocrine Consult: U-500 dosing, hypoglycemia Provider/Team Requesting Consult: IMS PCP: Jared Guzman Outpt Sweeper Operator Highways: Dr. Lee ASSESSMENT: Type 2 diabetes with [...] and [facility]/unresponsiveness due to poor PO intake. Type of DM: 2 Onset of DM: 1991 Home DM Medication Regimen: U-500 insulin - 285 units before breakfast/260 units before lunch/285 units before dinner , Trulicity 4.5 mg weekly DM control (last A1c/glucose data): 7.7% on current admission Resides at the [facility] Inter[facility] history: Patient was seen at bedside [...] before lunch/285 units before dinner Lactobacillus Acid-Pectin (Acidophilus/Elbert Pectin) tablet 1 tablet, Oral, 2 times [...] found for: CHOLHDLRATIO No results found for: [id number] Lab Results Component Value Date TSH 2.356 [...] Acquired absence of other toe(s), unspecified side ([facility]) Anxiety disorder Bipolar 1 disorder ([facility]) Blood circulation, collateral Cellulitis chronic L lower leg COVID 12/08/2021 Depression Diabetes mellitus ([facility]) Type II, on insulin Disease of blood and blood forming organ Endometrial carcinoma ([facility]) 11/25/2020 Endometrial hyperplasia Foot ulcer ([facility]) Hx of blood clots RLE prior to amputation Hyperlipidemia Hypertension Lymphedema 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, RLE Morbidly obese ([facility]) Muscle weakness Osteomyelitis ([facility]) Osteomyelitis ([facility]) 2019 RLE Other lack of coordination Other specified soft tissue disorders Other symbolic dysfunctions Schizophrenia ([facility]) Sleep apnea no CPAP Venous insufficiency Past Surgical History: Past Surgical History: Procedure Laterality Date ABCESS DRAINAGE Right 09/09/2018 FOOT; ACH COLONOSCOPY 09/19/[address] Hyde DILATION AND CURETTAGE OF UTERUS 05/18/2019 HYSTEROSCOPY 12/23/2021 LEG AMPUTATION THROUGH KNEE Right 06/16/2019 UPPER GASTROINTESTINAL ENDOSCOPY N/A 06/29/2023 Dr Sergio Sibley at [facility]; no specimens WISDOM TOOTH EXTRACTION Allergy(ies): No [...] were not included. Hospitalist Progress Note 10/13/2023 [phone]: Please page [facility] night Hospitalist for any issues. Admit Date: [...] bipolar type, transgender (F2M). Initially presented from [facility] with hypoglycemia and unresponsiveness, POC glucose [...] side (HCC) Anxiety disorder Bipolar 1 disorder ([facility]) Blood circulation, collateral Cellulitis chronic L lower leg COVID 12/08/2021 Depression Diabetes mellitus ([facility]) Type II, on insulin Disease of blood and blood forming organ Endometrial carcinoma ([facility]) 11/25/2020 Endometrial hyperplasia Foot ulcer ([facility]) Hx of blood clots RLE prior to amputation Hyperlipidemia Hypertension Lymphedema 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, RLE Morbidly obese ([facility]) Muscle weakness Osteomyelitis (HCC) Osteomyelitis ([facility]) 2019 RLE Other lack of coordination Other specified soft tissue disorders Other symbolic dysfunctions Schizophrenia ([facility]) Sleep apnea no CPAP [...] part of today's encounter. HEME: Recent Labs 10/11/2335410/12/2340110/13/23 0118 WBC 9.4 7.4 9.1 RBC 3.82 4.40 3.73 HGB 10.9* 12.4 10.5* HCT 32.1 37.5 31.7 MCV 84.2 85.1 84.9 RDW 14.8* 14.8* 14.7* PLT 347 355 324 CHEM: Recent Labs 10/11/23355 10/04/23 1803 10/12/23 0402 10/13/23 0118 NA 128* [...] found for: "DDIMER", "PROCAL", "COVID19", "HGBA1C", "TSH", "[id number]", "FOLATE", "VITD25", "CHOL", "TRIG", "HDL", LDLCALC Urine [...] Robertson APRN - KRANTHI, 10 mg at 10/12/23 1726 aspirin EC tablet 81 mg, 81 mg, Oral, Daily, Rachale Robertson APRN - KRANTHI, 81 mg at [...] g, IntraVENous, PRN, Rachael Robertson APRN - [employer] dilTIAZem CD (Cardizem CD) 24 hr capsule 180 mg, 180 mg, Oral, Daily, Rachael Robertson APRN - [employer], 180 mg at 10/13/23 0809 enoxaparin (Lovenox) syringe 30 mg, 30 mg, SubCUTAneous, 2 times per day, Rachael Robertson APRN - KRANTHI, 30 mg at 10/13/23 0809 ertapenem (INVanz) 1,000 mg in sodium chloride 0.9 % 50 mL IVPB Mini-Bag Plus, 1,000 mg, IntraVENous, q24h, Mukul Coreas DO, Stopped at 10/12/23 1631 FLUoxetine (PROzac) capsule 40 mg, 40 mg, Oral, Daily, JEREMY Liao CNP, 40 mg at 10/13/23 0809 gabapentin (Neurontin) capsule 100 mg, 100 mg, Oral, BID, JEREMY Liao CNP, 100 mg at 10/13/23 0809 glucagon (human [...] Oral, q6h PRN, Rachael Robertson APRN - [employer], 4 mg at 10/13/23 0810 pantoprazole (ProtoNix) EC tablet 40 mg, 40 mg, Oral, qAM AC, Rachael Robertson, COMMUNITY SPORTS COORDINATOR - [employer], 40 mg at 10/13/23 0623 polyethylene glycol (PEG) 3350 (Miralax) packet 17 g, 17 g, Oral, Daily PRN, Rachael Robertson COMMUNITY SPORTS COORDINATOR - [employer] polyethylene glycol (PEG) 3350 (Miralax) packet 17 g, 17 g, Oral, Daily, Rachael Robertson, COMMUNITY SPORTS COORDINATOR - [employer], 17 g at 10/13/23 0809 prochlorperazine (Compazine) [...] not on a long-term insulin regimen Marcio Moore MD [facility] Data: Moderate (3x CAT1 -OR- 1x CAT2 [...] of recurrent hypoglycemia (HIGH). Estimated MDM: High (68952/01425) Note: the above MDM determinations are made [...] Jacinto : 1965 AGE: 57 y.o. Room[facility]Bed: [facility] Admission Date: 10/07/2023 Visit Date: 10/12/2023 Reason for Endocrine Consult: U-500 dosing, hypoglycemia Provider/Team Requesting Consult: IMS PCP: Jared Guzman Outpt Sweeper Operator Highways: Dr. Lee ASSESSMENT: Type 2 diabetes with [...] and [facility]/unresponsiveness due to poor PO intake. Type of DM: 2 Onset of DM: 1991 Home DM Medication Regimen: U-500 insulin - 285 units before breakfast/260 units before lunch/285 units before dinner , Trulicity 4.5 mg weekly DM control (last A1c/glucose data): 7.7% on current admission Resides at the [facility] Inter[facility] history: Patient was seen at bedside [...] before lunch/285 units before dinner Lactobacillus Acid-Pectin (Acidophilus/Elbert Pectin) tablet 1 tablet, Oral, 2 times [...] found for: CHOLHDLRATIO No results found for: [id number] Lab Results Component Value Date TSH 2.356 [...] side (HCC) Anxiety disorder Bipolar 1 disorder ([facility]) Blood circulation, collateral Cellulitis chronic L lower leg COVID 12/08/2021 Depression Diabetes mellitus ([facility]) Type II, on insulin Disease of blood and blood forming organ Endometrial carcinoma (HCC) 11/25/2020 Endometrial hyperplasia Foot ulcer (HCC) Hx of blood clots RLE prior to amputation Hyperlipidemia Hypertension Lymphedema 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, RLE Morbidly obese ([facility]) Muscle weakness Osteomyelitis (HCC) Osteomyelitis (HCC) 2019 RLE Other lack of coordination Other specified soft tissue disorders Other symbolic dysfunctions Schizophrenia ([facility]) Sleep apnea no CPAP Venous insufficiency Past Surgical History: Past Surgical History: Procedure Laterality Date ABCESS DRAINAGE Right 09/09/2018 FOOT; ACH COLONOSCOPY 09/19/[address] Hyde DILATION AND CURETTAGE OF UTERUS 05/18/2019 HYSTEROSCOPY 12/23/2021 LEG AMPUTATION THROUGH KNEE Right 06/16/2019 UPPER GASTROINTESTINAL ENDOSCOPY N/A 06/29/2023 Dr Sergio Sibley at [facility]; no specimens WISDOM TOOTH EXTRACTION Allergy(ies): No [...] from the original note were not included. [facility] - Infectious Diseases Attending Progress Note Subjective- Following for BSI d/t Acinetobacter lwoffii. Pt resting comfortably in bed. States that abdominal pain has improved. Tolerating regular diet. Denies F/C. PICC line has been placed. Interval Events- Pt is afebrile. WBC WNL at 7.4. Hyperglycemic today at 401. Planning to complete IV course w/ ertapenem via PICC. Plan is to return to [facility] when medically stable. Objective- Vitals- [...] be of moderate complexity. Mukul Coreas DO [facility] Infectious Diseases Office Tel. [phone] Images from the original note were not included. Hospitalist Progress Note 10/12/2023 [phone]: Please page [facility] night Hospitalist for any issues. Admit Date: [...] bipolar type, transgender (F2M). Initially presented from [facility] with hypoglycemia and unresponsiveness, POC glucose [...] this interval not displayed. Recent Labs 10/11/23 035 MG 1.3* ALBUMIN 3.8 (MG, CRP, SEDRATE, [...] found for: "DDIMER", "PROCAL", "COVID19", "HGBA1C", "TSH", "[id number]", "FOLATE", "VITD25", "CHOL", "TRIG", "HDL", LDLCALC Urine [...] sodium chloride 0.9 % 100 mL IVPB (Add-Bixby), 3,000 mg, IntraVENous, q6h, Skylar Larkin PA-C, Stopped at 10/12/23 0424 ARIPiprazole (Abilify) tablet 10 mg, 10 mg, Oral, q24h, JEREMY Liao CNP, 10 mg at 10/11/23 1556 aspirin EC tablet 81 mg, 81 mg, Oral, Daily, Rachael Robertson APRN - KRANTHI, 81 mg at 10/11/23 0941 atorvastatin (Lipitor) tablet 10 mg, 10 mg, Oral, Nightly, Rachael Robertson APRN - KRANTHI, 10 mg at 10/11/23 2019 clotrimazole (Lotrimin) 1 % cream, , Topical, BID, JEREMY Liao CNP, Given at 10/11/232120 dextrose 5 % infusion, 100 mL/hr, IntraVENous, PRN, JEREMY Liao CNP, Stopped at 10/10/23 0552 dextrose 50 % solution 12.5 g, 12.5 g, IntraVENous, PRN, JEREMY Liao CNP dilTIAZem CD (Cardizem CD) 24 hr capsule 180 mg, 180 mg, Oral, Daily, JEREMY Liao CNP, 180 mg at 10/11/23 0941 enoxaparin (Lovenox) [...] gel 15 g, 15 g, Oral, PRN, JREEMY Liao CNP, 15 g at 10/10/23 0216 Insulin Lispro (Humalog) injection 0-18 Units, 0-18 Units, SubCUTAneous, TID Amrita MD Insulin Lispro (Humalog) injection 25 Units, 25 Units, SubCUTAneous, TID , Amrita Garcia MD, 25 Units at 10/11/23 174 insulin NPH (Isophane) (HumuLIN N,NovoLIN N) injection [...] mg, Oral, BID, Rachael Robertson APRN - [employer], 20 mg at 10/11/23 233 melatonin tablet 10 mg, 10 mg, Oral, Nightly, Rachael Robertson APRN - KRANTHI, 10 mg at 10/11/232018 metoprolol tartrate (Lopressor) tablet 25 mg, 25 mg, Oral, BID, Rachael Robertson APRN - [employer], 25 mg at 10/11/232018 ondansetron (Zofran) tablet 4 mg, 4 mg, Oral, q6h PRN, Rachael Robertson APRN - KRANTHI, 4 mg at 10/11/232041 pantoprazole (ProtoNix) EC tablet 40 mg, 40 mg, Oral, qAM AC, Rachael Robertson APRN - [employer], 40 mg at 10/12/23 0550 polyethylene glycol (PEG) 3350 (Miralax) packet 17 g, 17 g, Oral, Daily PRN, Rachael Robertson APRN - [employer] polyethylene glycol (PEG) 3350 (Miralax) packet 17 g, 17 g, Oral, Daily, Rachael Robertson APRN - [employer], 17 g at 10/08/23 1042 prochlorperazine (Compazine) [...] - PICC today? --> secure chat with Dr. Coreas, tonie to place the order for placement today [...] following - PICC, OPAT, endocrine recs Marcio Moore MD Division of Hospitalist Medicine Inpatient Medical Services/[facility] Data: Extensive (Two out of three: 3x CAT1, 1x CAT2, 1x CAT3) Complexity: Acute illness or injury posing a threat to life or body function (HIGH). Risk: Prescription drug/IVF/colloid was initiated, discontinued, adjusted; or reviewed with decision to maintain current orders (MOD). Use/consideration of a therapy requiring intensive monitoring (HIGH). Estimated MDM: High (42171/10535) Note: the above MDM determinations are made [...] loss Fluid Accumulation: No significant fluid accumulation Camp Manager Strength: Not Performed Nutrition Assessment: Patient is a 57-year-old transgender male with history of type 2 diabetes, hypertension, hyperlipidemia, diabetic polyneuropathy, s/p right AKA and [facility]. Per notes patient has had poor p.o. intake for the last 4 days in addition to nausea and vomiting. However it appears that he was noted to be unresponsive and was found to have a blood glucose of 36 in the [facility]it[facility]. Patient had received 260 units of U-500 [...] Stated he was drinking "health shakes" at [facility] 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 SPECIAL[employer]. Patient requesting to have Ensure HP 3x/day. [...] (kg): 53 kg Total Energy Requirements (kcals/day): 2114-3970 (30-35) Weight Used for Protein Requirements: Adjusted [...] 152 kg (335 lb) (03/08/23 Deedee scale) Dodge Body Weight (lbs) (Calculated): 130 lbs Dodge Body Weight (Kg) (Calculated): 59 kg Weight Adjustment For: Amputation % Weight Adjustment: 10.1 - AKA Total Adjusted Percentage (Calculated): 10.1 Adjusted Dodge Body Weight (lbs) (Calculated): 116.9 lbs Adjusted Dodge Body Weight (kg) (Calculated): 53.14 kg BMI [...] diet Marcela Escamilla MS RD LD Contact: [employer] or *[phone] Images from the original note were not included. [facility] - Infectious Diseases Attending [...] IV ampicillin/sulbactam. Plan is to return to [facility] when medically stable. Objective- Vitals- [...] be of moderate complexity. Mukul Coreas DO [facility] Infectious Diseases Office Tel. [phone] Department of Internal Medicine Division of Endocrinology, Diabetes, & Metabolism Endocrinology Note Patient Name: Will Jacinto : 1965 AGE: 57 y.o. Room/Bed: [facility]/[address] Admission Date: 10/07/2023 Visit Date: 10/11/2023 Reason for Endocrine Consult: U-500 dosing, hypoglycemia Provider/Team Requesting Consult: IMS PCP: Jared Guzman Outpt Sweeper Operator Highways: Dr. Lee ASSESSMENT: Type 2 diabetes with [...] and he [facility]/unresponsiveness. Patient had received 260 units [...] before lunch/285 units before dinner Lactobacillus Acid-Pectin (Acidophilus/Elbert Pectin) tablet 1 tablet, Oral, 2 times [...] found for: CHOLHDLRATIO No results found for: [id number] Lab Results Component Value Date TSH 2.356 [...] contrast Result Date: 10/07/2023 Patient Name: WILL JACNITO : 1965 Exam Date/Time: 10/07/2023 07:29 Procedure: [...] Acquired absence of other toe(s), unspecified side ([facility]) Anxiety disorder Bipolar 1 disorder ([facility]) Blood circulation, collateral Cellulitis chronic L lower leg COVID 12/08/2021 Depression Diabetes mellitus ([facility]) Type II, on insulin Disease of blood and blood forming organ Endometrial carcinoma ([facility]) 11/25/2020 Endometrial hyperplasia Foot ulcer ([facility]) Hx of blood clots RLE prior to amputation Hyperlipidemia Hypertension Lymphedema 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, RLE Morbidly obese ([facility]) Muscle weakness Osteomyelitis ([facility]) Osteomyelitis ([facility]) 2019 RLE Other lack of coordination Other specified soft tissue disorders Other symbolic dysfunctions Schizophrenia ([facility]) Sleep apnea no CPAP Venous insufficiency Past Surgical History: Past Surgical History: Procedure Laterality Date ABCESS DRAINAGE Right 09/09/2018 FOOT; ACH COLONOSCOPY 09/19/[address] Hyde DILATION AND CURETTAGE OF UTERUS 05/18/2019 HYSTEROSCOPY 12/23/2021 LEG AMPUTATION THROUGH KNEE Right 06/16/2019 UPPER GASTROINTESTINAL ENDOSCOPY N/A 06/29/2023 Dr Sergio Sibley at [facility]; no specimens WISDOM TOOTH EXTRACTION Allergy(ies): No [...] were not included. Hospitalist Progress Note 10/11/2023 [id number]: Please page [facility] Hospitalist for any issues. Admit Date: 10/07/2023 [...] bipolar type, transgender (F2M). Initially presented from [facility] with hypoglycemia and unresponsiveness, POC glucose [...] Intake/Output Summary (Last 24 hours) at 10/11/2023 08 Last data filed at 10/11/2023 0646 Gross per 24 hour Intake 3530.5 ml Output 5100 ml Net -1569.5 ml 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 other toe(s), unspecified side (HCC) Anxiety disorder Bipolar 1 disorder ([facility]) Blood circulation, collateral Cellulitis chronic L lower leg COVID 12/08/2021 Depression Diabetes mellitus ([facility]) Type II, on insulin Disease of blood and blood forming organ Endometrial carcinoma ([facility]) 11/25/2020 Endometrial hyperplasia Foot ulcer ([facility]) Hx of blood clots RLE prior to amputation Hyperlipidemia Hypertension Lymphedema MDRO (multiple drug resistant organisms) resistance hx CRE and MRSA in 2018, RLE Morbidly obese ([facility]) Muscle weakness Osteomyelitis (HCC) Osteomyelitis ([facility]) 2019 RLE Other lack of coordination Other specified soft tissue disorders Other symbolic dysfunctions Schizophrenia ([facility]) Sleep apnea no CPAP [...] sodium chloride 0.9 % 100 mL IVPB (Add-Bixby), 3,000 mg, IntraVENous, q6h, Skylar Larkin PA-C, Last Rate: 200 mL/hr at 10/11/23 0646, 3,000 mg at 10/11/23 0646 ARIPiprazole (Abilify) tablet 10 mg, 10 mg, Oral, q24h, JEREMY Liao CNP, 10 mg at 10/09/23 175 aspirin EC tablet 81 mg, 81 mg, Oral, Daily, JEREMY Liao CNP, 81 mg at 10/10/23 09 atorvastatin (Lipitor) tablet 10 mg, 10 mg, [...] Robertson APRN - KRANTHI, 180 mg at 10/10/23 0909 enoxaparin (Lovenox) syringe 30 mg, 30 mg, [...] Oral, Daily PRN, Rachael Robertson APRN - [employer] polyethylene glycol (PEG) 3350 (Miralax) packet 17 g, 17 g, Oral, Daily, Rachael Robertson APRN - [employer], 17 g at 10/08/23 1042 prochlorperazine (Compazine) [...] insulin & antibx recs for discharge Marcio Moore MD Division of Hospitalist Medicine Inpatient Medical Services/[facility] Data: Moderate (3x CAT1 -OR- 1x CAT2 -OR- 1x CAT3) Complexity: Acute illness or injury posing a threat to life or body function (HIGH). Risk: Use/consideration of therapy requiring intensive monitoring: parenteral cardioactive electrolyte repletion, ex: calcium gluconate, magnesium, potassium (rapid hypotension, arrhythmias or arrest); telemetry, BMP (HIGH). Estimated MDM: High (60374/16358) Note: the above MDM determinations are made by me for my own use to estimate my end-of-day billing codes. However, documentation is reviewed by professional coders; following their review of documentation, and in accordance with current AMA CPT, CMS, and ACDIS guidelines, the actual billing code(s) may differ from my estimate. [facility] Respiratory Care Department Progress Note Comment [...] from the original note were not included. [facility] - Infectious Diseases Advanced Practice Provider Progress [...] Tray (Disposables); 5 carb choices (75 gm/meal) @[id number]@ 24HR INTAKE/OUTPUT: Intake/Output Summary (Last 24 hours) at 10/10/2023 1126 Last data filed at 10/10/2023 0552 Gross per 24 hour Intake 351.67 ml Output 0 ml Net 351.67 ml 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 other toe(s), unspecified side ([facility]) Anxiety disorder Bipolar 1 disorder ([facility]) Blood circulation, collateral Cellulitis chronic L lower leg COVID 12/08/2021 Depression Diabetes mellitus ([facility]) Type II, on insulin Disease of blood and blood forming organ Endometrial carcinoma ([facility]) 11/25/2020 Endometrial hyperplasia Foot ulcer ([facility]) Hx of blood clots RLE prior to amputation Hyperlipidemia Hypertension Lymphedema MDRO (multiple drug resistant organisms) resistance hx CRE and MRSA in 2018, RLE Morbidly obese ([facility]) Muscle weakness Osteomyelitis ([facility]) Osteomyelitis ([facility]) 2019 RLE Other lack of coordination Other specified soft tissue disorders Other symbolic dysfunctions Schizophrenia ([facility]) Sleep apnea no CPAP Venous insufficiency LABS: CBC: Recent Labs 10/08/23306 WBC 10.1 RBC 3.72 HGB 10.6* HCT 31.6 MCV 84.9 RDW 15.7* PLT 339 BMP: Recent Labs 10/08/23 0307 10/09/23 0903 10/10/23 0227 NA 130* 130* -- K 4.2 4.5 [...] 10/10/2023 Division of Hospitalist Medicine Inpatient Medical Services/[facility] PAGER: [phone] Department of Internal Medicine Division of Endocrinology, Diabetes, & Metabolism Endocrinology Note Patient Name: Will Jacinto : 1965 AGE: 57 y.o. Room/Bed: [facility]/[address] Admission Date: 10/07/2023 Visit Date: 10/10/2023 Reason for Endocrine Consult: U-500 dosing, hypoglycemia Provider/Team Requesting Consult: [facility] PCP: Jared Guzman Outpt Sweeper Operator Highways: Dr. Lee ASSESSMENT: Type 2 diabetes with [...] and [facility]/unresponsiveness. Patient had received 260 units [...] before lunch/285 units before dinner Lactobacillus Acid-Pectin (Acidophilus/Elbert Pectin) tablet 1 tablet, Oral, 2 times [...] found for: CHOLHDLRATIO No results found for: [id number] Lab Results Component Value Date TSH 2.356 [...] Acquired absence of other toe(s), unspecified side ([facility]) Anxiety disorder Bipolar 1 disorder ([facility]) Blood circulation, collateral Cellulitis chronic L lower leg COVID 12/08/2021 Depression Diabetes mellitus ([facility]) Type II, on insulin Disease of blood and blood forming organ Endometrial carcinoma ([facility]) 11/25/2020 Endometrial hyperplasia Foot ulcer ([facility]) Hx of blood clots RLE prior to amputation Hyperlipidemia Hypertension Lymphedema MDRO (multiple drug resistant organisms) resistance hx CRE and MRSA in 2018, RLE Morbidly obese ([facility]) Muscle weakness Osteomyelitis ([facility]) Osteomyelitis ([facility]) 2019 RLE Other lack of coordination Other specified soft tissue disorders Other symbolic dysfunctions Schizophrenia ([facility]) Sleep apnea no CPAP Venous insufficiency Past Surgical History: Past Surgical History: Procedure Laterality Date ABCESS DRAINAGE Right 09/09/2018 FOOT; ACH COLONOSCOPY 09/19/[address] Hyde DILATION AND CURETTAGE OF UTERUS 05/18/2019 HYSTEROSCOPY 12/23/2021 LEG AMPUTATION THROUGH KNEE Right 06/16/2019 UPPER GASTROINTESTINAL ENDOSCOPY N/A 06/29/2023 Dr Sergio Sibley at [facility]; no specimens WISDOM TOOTH EXTRACTION Allergy(ies): No [...] state/prognosis on the date of this note. [facility] Respiratory Care Department Progress Note Comment [...] Tray (Disposables); 5 carb choices (75 gm/meal) @[id number]@ 24HR INTAKE/OUTPUT: Intake/Output Summary (Last 24 hours) [...] side (HCC) Anxiety disorder Bipolar 1 disorder ([facility]) Blood circulation, collateral Cellulitis chronic L lower leg COVID 12/08/2021 Depression Diabetes mellitus ([facility]) Type II, on insulin Disease of blood and blood forming organ Endometrial carcinoma ([facility]) 11/25/2020 Endometrial hyperplasia Foot ulcer ([facility]) Hx of blood clots RLE prior to amputation Hyperlipidemia Hypertension Lymphedema MDRO (multiple drug resistant organisms) resistance hx CRE and MRSA in 2018, RLE Morbidly obese ([facility]) Muscle weakness Osteomyelitis (HCC) Osteomyelitis (HCC) 2019 RLE Other lack of coordination Other specified soft tissue disorders Other symbolic dysfunctions Schizophrenia ([facility]) Sleep apnea no CPAP Venous insufficiency LABS: CBC: Recent Labs 10/07/23 0627 10/08/23 0307 WBC 13.3* 10.1 RBC 4.75 3.72 HGB 13.2 10.6* HCT 41.5 31.6 MCV 87.4 84.9 RDW 14.2 15.7* PLT 438 339 BMP: Recent Labs 10/07/23 0627 10/08/23 0307 10/09/23 0903 NA 138 130* 130* [...] : Mayda Olmstead MD 10/09/2023 [facility] Services/[facility] PAGER: [phone] Vancomycin therapy has been discontinued by Skylar Larkin PA-C on 10/09/23. Thank you for the consult. Pharmacy signing off for vancomycin dosing. Thais Esqueda RPh, PharmD Date: 10/09/23 Time: 11:39 AM Department of Internal Medicine Division of Endocrinology, Diabetes, & Metabolism Endocrinology Note Patient Name: Will Jacinto : 1965 AGE: 57 y.o. Room/Bed: [facility] A Admission Date: 10/07/2023 Visit Date: 10/09/2023 Reason for Endocrine Consult: U-500 dosing, hypoglycemia Provider/Team Requesting Consult: YUNIER PCP: Jared Guzman Outpt Sweeper Operator Highways: Dr. Lee ASSESSMENT: Type 2 diabetes with [...] and he [facility] the [facility]/unresponsiveness. Patient had received 260 units [...] before lunch/285 units before dinner Lactobacillus Acid-Pectin (Acidophilus/Elbert Pectin) tablet 1 tablet, Oral, 2 times [...] found for: CHOLHDLRATIO No results found for: [id number] Lab Results Component Value Date TSH 2.356 [...] 10/07/2023 Patient Name: WILL JACINTO : 1965 [facility]#: [id number] Exam Date/Time: 10/07/2023 07:29 Procedure: CT HEAD [...] ENDOSCOPY N/A 06/29/2023 Dr Sergio Sibley at [facility]; no specimens WISDOM TOOTH EXTRACTION Allergy(ies): No [...] Vancomycin Dosing Service Progress Note Date: 10/09/23 Room:[address] Patient Name: Will Jacinto Allergies: Patient [...] AM Name: Thais Esqueda RPh, PharmD Phone: [phone] Images from the original note were not included. Hospitalist Progress Note Subjective: Admit Date: 10/07/2023 PCP: Jared Guzman Room#: [id number] A Interval History: PT reports nausea, vomiting improved, no diarrhea, abd pain improved since admission, LLE erythema has been present for many years, no pain in his LLE. no other complaints. Adult diet Full liquid; 5 carb choices (75 gm/meal) @[id number]@ 24HR INTAKE/OUTPUT: Intake/Output Summary (Last 24 hours) [...] side (HCC) Anxiety disorder Bipolar 1 disorder ([facility]) Blood circulation, collateral Cellulitis chronic L lower leg COVID 12/08/2021 Depression Diabetes mellitus ([facility]) Type II, on insulin Disease of blood and blood forming organ Endometrial carcinoma ([facility]) 11/25/2020 Endometrial hyperplasia Foot ulcer ([facility]) Hx of blood clots RLE prior to amputation Hyperlipidemia Hypertension Lymphedema MDRO (multiple drug resistant organisms) resistance hx CRE and MRSA in 2018, RLE Morbidly obese ([facility]) Muscle weakness Osteomyelitis (HCC) Osteomyelitis (HCC) 2019 RLE Other lack of coordination Other specified soft tissue disorders Other symbolic dysfunctions Schizophrenia ([facility]) Sleep apnea no CPAP Venous insufficiency LABS: CBC: Recent Labs 10/07/2362610/08/23 030 WBC 13.3* 10.1 RBC 4.75 3.72 HGB 13.2 10.6* HCT 41.5 31.6 MCV 87.4 84.9 RDW 14.2 15.7* PLT 438 339 BMP: Recent Labs 10/07/2362610/08/23 030 NA 138 130* K 4.4 4.2 CL 100 100 CO2 27 22 BUN 20 34 CREATININE 0.74 1.09 GLUCOSE 120* 288* CALCIUM 8.8 8.1* ANIONGAP 11 8 LIVER PROFILE: Recent Labs 10/07/2362610/08/23 0307 AST 36 33 ALT 46 42 [...] 10/08/2023 Division of Hospitalist Medicine Inpatient Medical Services/[facility] PAGER: [phone] Pharmacy Managed Vancomycin Dosing Service Consult Note [...] AM Ezio Orr PharmD Available via Secure Chat/Jamplify documented in this encounter [facility] 10-16-2023 Nurse Note Report called to [facility]. Nursing aware of transport time scheduled for [...] for admit orders. documented in this encounter [facility] 10-16-2023 Hospital course Narrative Images from [...] bacteria Sepsis without acute organ dysfunction (HCC) Diabetic gastroparesis associated with type 2 diabetes mellitus ([facility]) ([facility]) Type 2 diabetes mellitus with hyperglycemia, with long-term current use of insulin ([facility]) Class 3 severe obesity due to excess calories with serious comorbidity and body mass index (BMI) of 60.0 to 69.9 in adult ([facility]) HOSPITAL COURSE: Patient admitted 10/07/2023 for hypoglycemia 2/2 insulin use with poor PO intake, hypothermia, ?sepsis. 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 Initially presented from [facility] with hypoglycemia and unresponsiveness, POC glucose [...] 325 MG tablet Commonly known as: Tylenol Acidophilus/Elbert Pectin tablet ARIPiprazole 10 MG tablet Commonly [...] DISPOSITION: Skilled Facility FACILITY/HOME CARE AGENCY NAME: [facility] DISCHARGE TIME: 40 minutes SIGNED: Marcio Moore MD 10/16/2023, 5:31 PM See today's progress note for physical exam. documented in this encounter [facility] 10-16-2023 Miscellaneous Notes Discharge med list transmitted to [facility] via [facility] per TCC request. Discharge order is in place, but contingent upon what pt's blood sugar will be at dinner. Tasked [employer] to send discharge paperwork to [facility]. Spoke with BEE Herron at the facility to inform her of probable discharge at 6:30. TCC made ACUPRESSURE THERAPIST aware the DC may be cancelled depending on his blood sugars tonight with dinner. ACUPRESSURE THERAPIST verbalized understanding. Pt also made aware of probable dc back to [facility] tonight. TCC to follow and assist as needed. MAR and updated notes placed to [facility] via [facility] per TCC request. Await review and response regarding ability to accept. TCC notified. [facility] informed that pt can go back to [facility] tonight as long as blood sugar is acceptable after dinner. Was asked to arrange transportation, under the assumption that pt will be discharged. Transportation set for 6:30 with [employer] [facility]. Transportation form on chart. Pt is LTC LOC and does not need 7000 or auth. Tasked [facility] to send MAR to facility. Once the [...] Glucose 528. Endocrine continues to follow. DCP[facility] when clinically [facility]. TCC to follow. [...] 8 GMLOS: 5.1 [facility]ocrine [facility]. Images from the original note were not included. Care Management Progress Note Pt remains on 4W. Positive blood cultures. PICC. Invanz Q24h until 10/21. Order in Media. Endocrine following, adjusting insulin improved to 250 this morning. DCP: [facility] when clinically stable. TCC to follow. Discharge [...] with further issues IV ABX/COPAT placed to [facility] per TCC request. Images from the original note were not included. Care Management Progress Note Pt remains on 4W. Positive blood cultures. PICC. Invanz Q24h until 10/21. Order in Media. Na 129. Endocrine following, adjusting insulin. DCP: [facility]. TCC to follow. Discharge Milestones and Delays Expected Date/Time: 10/15/[address] discharge order Complete med reconciliation Case mgmt discharge readiness Clinical Stability Diagnsotic Workup Expected Discharge History Expected Date/Time Set By Reviewed At 10/15/2023 Herber Bradshaw RN 10/13/2023 8:06 AM 10/14/2023 Herber Bradshaw RN 10/12/2023 7:58 AM 10/12/2023 Demetria Robertson RN 10/11/2023 8:45 AM 10/10/2023 Demetria Robetrson RN 10/08/2023 9:05 AM 10/10/2023 Rosaura Mustafa [...] Endo, ID following. DC plan: return to [facility] when clinically stable. Bed hold, no auth [...] Infectious Disease following. Plan is return to [facility] when medically stable. Bed hold No auth [...] 4 GMLOS: 4.1 Return referral placed to [facility] via [facility] per TCC request. Await review and response regarding ability to accept. TCC notified. Care Managment Initial Assessment Date: 10/08/2023 Patient Name: Will Jacinto : 1965 Patient Information Source of Information: Patient Cognition/Language: Impaired Permission given to speak with patient telephone services sales representative/caregiver as indicated: Confirmation of Payer with patient/family: Payer Name: [facility] [place]: No Confirmation of Primary Care Physician: Primary Caregiver: If assistance needed, confirmed caregiver ready, willing and able to care for patient at discharge: Yes Confirmed with: Living Arrangements Current Residence: Number of Floors Number of Entry Steps: Bed/Bath Levels: Facility: [facility] Facility Name: [facility] Plan to Return: Yes Lives with: Alone [...] Plan Patient expects to be discharged to: [facility]. Discharge Planning Actions: Patient's Choice Rights and [employer] and Collaborative Relationships Disclosed as Indicated for Post-Acute Care: Interdisciplinary Team Engagement: Social Work Referral for: Additional Information: [place] per patient. Lives at [facility]. Plan is return at discharge. Referral in [facility]. Demetria Robertson RN Problem: Safety - Adult [...] include monitor bglucose. documented in this encounter [facility] 10-13-2023 Hospital Discharg e instructions Gricelda Harding RN - 10/13/2023 1:05 PM EST Continuity of Care Form Patient Name: Will Jacinto : 1965 Admit date: 10/07/2023 Discharge date: 10/16/2023 Code Status Order: Full Code Advance Directives: N Admitting Physician: Ricardo Spring MD PCP: Jared Guzman Discharging Nurse: GRICELDA HARDING RN Discharging Hospital Unit/Room#: W4429/W4-429 A Discharging Unit Emergency Contact: Extended Emergency Contact Information Primary Emergency Contact: Quesada,Jovana (POA) Relation: Relative Secondary Emergency Contact: Carola Lubin Mobile Relation: Other Past Surgical History: Past Surgical History: Procedure Laterality Date ABCESS DRAINAGE Right 09/09/2018 FOOT; [facility] COLONOSCOPY 09/19/[address] Hyde DILATION AND CURETTAGE OF UTERUS 05/18/2019 HYSTEROSCOPY 12/23/2021 LEG AMPUTATION THROUGH KNEE Right 06/16/2019 UPPER GASTROINTESTINAL ENDOSCOPY N/A 06/29/2023 Dr Sergio Sibley at [facility]; no specimens WISDOM TOOTH EXTRACTION Immunization History: [...] Endometrial hyperplasia Diabetic hyperosmolar non-ketotic state (CMS/HCC) ([facility]) Thickened endometrium Ileus (CMS/HCC) (HCC) Complex endometrial hyperplasia with atypia Diabetic gastroparesis associated with type 2 diabetes mellitus (CMS/HCC) ([facility]) Esophagitis Nausea and vomiting Hyperlipidemia Cellulitis and abscess of lower extremity Chronic acquired lymphedema Cellulitis Hyperandrogenism Uncontrolled type 2 diabetes mellitus with complication Chronic osteomyelitis (CMS/HCC) ([facility]) 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 ([facility]) Class 3 severe obesity due to excess calories with serious comorbidity and body mass index (BMI) of 50.0 to 59.9 in adult ([facility]) Type 2 diabetes mellitus with hyperglycemia, with long-term current use of insulin ([facility]) Hyperglycemia Post-menopausal bleeding Morbid obesity ([facility]) Left leg cellulitis Diabetic foot infection S/P AKA (above knee amputation) unilateral, right ([facility]) Class 3 severe obesity due to excess calories with serious comorbidity and body mass index (BMI) of 60.0 to 69.9 in adult ([facility]) Isolation/Infection: Contact MRSA, MDRO [...] assistance Toileting Total assistance Feeding Minimal assistance Barrel Finisher Minimal assistance Med Delivery yes Wound Care [...] Score: @[email or web address]@ Discharging to Facility/ Agency Name: [facility] Address: [address] [place] [address] Dialysis Facility (if applicable) Name: Address: Dialysis Schedule: Phone: Fax: Mica Sizer/Drug Enforcement Agent signature: ICIAN SECTION Prognosis: good Condition at [...] the diagnosis listed and that he requires [facility] facility for greater than 30 days. Update Admission H&P: No change in H&P PHYSICIAN SIGNATURE: documented in this encounter [facility] 10-12-2023 Procedure note Associated Ord er(s): [...] lumen Catheter size: 5 Fr Lot #: [id number] Trimmed at (cm): 41 Inserted at (cm): 41 Ultrasound guidance: Yes Post-procedure: Post-procedure: Antimicrobial dressing applied and securement device Description/Findings: Flushes easily and blood returned Estimated blood loss: < 5 mL Specify complication(s): No apparent complications Follow-up chest x-ray: Ordered General Comments: Infiltrated PIV site right AC, tender red IV right wrist documented in this encounter [facility] 10-09-2023 Consult note Associated Order (s): IP CONSULT TO INFECTIOUS DISEASES Images from the original note were not included. [facility] - Infectious Diseases Advanced Practice Provider Consult [...] was found unresponsive and diaphoretic in the assorter laundry; POC glucose 36. He was given 2 [...] Acquired absence of other toe(s), unspecified side ([facility]) Anxiety disorder Bipolar 1 disorder ([facility]) Blood circulation, collateral Cellulitis chronic L lower leg COVID 12/08/2021 Depression Diabetes mellitus ([facility]) Type II, on insulin Disease of blood and blood forming organ Endometrial carcinoma ([facility]) 11/25/2020 Endometrial hyperplasia Foot ulcer ([facility]) Hx of blood clots RLE prior to amputation Hyperlipidemia Hypertension Lymphedema MDRO (multiple drug resistant organisms) resistance hx CRE and MRSA in 2018, RLE Morbidly obese ([facility]) Muscle weakness Osteomyelitis ([facility]) Osteomyelitis ([facility]) 2019 RLE Other lack of coordination Other specified soft tissue disorders Other symbolic dysfunctions Schizophrenia ([facility]) Sleep apnea no CPAP Venous insufficiency Past Surgical History: Past Surgical History: Procedure Laterality Date ABCESS DRAINAGE Right 09/09/2018 FOOT; ACH COLONOSCOPY 09/19/[address] Hyde DILATION AND CURETTAGE OF UTERUS 05/18/2019 HYSTEROSCOPY 12/23/2021 LEG AMPUTATION THROUGH KNEE Right 06/16/2019 UPPER GASTROINTESTINAL ENDOSCOPY N/A 06/29/2023 Dr Sergio Sibley at [facility]; no specimens WISDOM TOOTH EXTRACTION Current Medications: Current Facility-Administered Medications Medication Dose Route Frequency Provider Last Rate Last Admin acetaminophen (Tylenol) tablet 650 mg 650 mg Oral q4h PRN Rachael Robertson APRN - [employer] 650 mg at 10/08/23 0554 ARIPiprazole (Abilify) tablet 10 mg 10 mg Oral q24h Rachael Robertson APRN - [employer] 10 mg at 10/08/23 1639 aspirin EC tablet 81 mg 81 mg Oral Daily Rachael Robertson APRN - [employer] 81 mg at 10/09/23 0855 atorvastatin (Lipitor) tablet 10 mg 10 mg Oral Nightly Rachael Robertson APRN - [place] 10 mg at 10/08/232307 clotrimazole (Lotrimin) 1 % cream Topical BID Rachael Robertson APRN - [place] Given at 10/09/23 0852 dextrose 5 % infusion 100 mL/hr IntraVENous PRN JEREMY Liao CNP dextrose 50 % solution 12.5 g 12.5 g IntraVENous PRN Rachael Robertson APRN - [place] dilTIAZem CD (Cardizem CD) 24 hr capsule 180 mg 180 mg Oral Daily Rachael Robertson APRN - [place] 180 mg at 10/09/23 0855 enoxaparin (Lovenox) syringe 30 mg 30 mg SubCUTAneous 2 times per day JEREMY Liao CNP 30 mg at 10/09/23 0856 FLUoxetine (PROzac) capsule 40 mg 40 mg Oral Daily Rachael Robertson APRN - [place] 40 mg at 10/09/23 0855 gabapentin (Neurontin) capsule 100 mg 100 mg Oral BID Rachael Robertson APRN - [employer] 100 mg at 10/09/23 0856 glucagon (human [...] mg Oral q24h Rachael Robertson APRN - [employer] 40 mg at 10/08/23 163 megestrol (Megace) tablet 20 mg 20 mg Oral BID Rachael Robertson APRN - [employer] 20 mg at 10/09/23 0855 melatonin tablet 10 mg 10 mg Oral Nightly Rachael Robertson APRN - [employer] 10 mg at 10/08/232307 metoclopramide (Reglan) tablet 10 mg 10 mg Oral 4x daily Rachael Robertson APRN - [employer] 10 mg at 10/09/23 0855 metoprolol tartrate (Lopressor) tablet 25 mg 25 mg Oral BID Rachaelemely Robertson APRN - [employer] 25 mg at 10/09/23 0855 ondansetron (Zofran) tablet 4 mg 4 mg Oral q6h PRN Rachael Robertson APRN - [employer] 4 mg at 10/08/23 2044 pantoprazole (ProtoNix) EC tablet 40 mg 40 mg Oral qAM AC Rachael Robertson APRN - [employer] 40 mg at 10/09/23 0654 piperacillin-tazobactam (Zosyn) IVPB 3,375 mg 3,375 mg IntraVENous q8h Rachael Robertson APRN - [employer] Stopped at 10/09/23 0645 polyethylene glycol (PEG) 3350 (Miralax) packet 17 g 17 g Oral Daily PRN Rachael Robertson APRN - [place] polyethylene glycol (PEG) 3350 (Miralax) packet 17 g 17 g Oral Daily Rachael Robertson APRN - [employer] 17 g at 10/08/23 1042 vancomycin (Vancocin) 1500 mg in NS 250 mL IVPB (compounded premix) 1,500 mg IntraVENous q12h Rachael Robertson APRN - [employer] 125 mL/hr at 10/09/23 0656 1,500 mg [...] Jacinto : 1965 AGE: 57 y.o. Room/Bed: [facility] A Admission Date: 10/07/2023 Visit Date: 10/08/2023 Reason for Endocrine Consult: U-500 dosing, hypoglycemia Provider/Team Requesting Consult: [facility] PCP: Jared Guzman Outpt Sweeper Operator Highways: Dr. Lee ASSESSMENT: Type 2 diabetes with [...] and [facility]. Per notes patient has had [...] a blood glucose of 36 [facility]. Patient had received 260 units of U-500 [...] before lunch/285 units before dinner Lactobacillus Acid-Pectin (Acidophilus/Elbert Pectin) tablet 1 tablet, Oral, 2 times [...] found for: CHOLHDLRATIO No results found for: [id number] Lab Results Component Value Date TSH 2.356 11/26/2020 Radiology reportsas per the Radiologist Radiology: CT abdomen pelvis w contrast Result Date: 10/08/2023 [facility]: [facility] 1965 [id number] Ex[facility] Date/Time: 10/08/2023 09:36 Procedure: CT ABDOMEN [...] side (HCC) Anxiety disorder Bipolar 1 disorder ([facility]) Blood circulation, collateral Cellulitis chronic L lower leg COVID 12/08/2021 Depression Diabetes mellitus ([facility]) Type II, on insulin Disease of blood and blood forming organ Endometrial carcinoma ([facility]) 11/25/2020 Endometrial hyperplasia Foot ulcer ([facility]) Hx of blood clots RLE prior to amputation Hyperlipidemia Hypertension Lymphedema MDRO (multiple drug resistant organisms) resistance hx CRE and MRSA in 2018, RLE Morbidly obese ([facility]) Muscle weakness Osteomyelitis (HCC) Osteomyelitis (HCC) 2019 RLE Other lack of coordination Other specified soft tissue disorders Other symbolic dysfunctions Schizophrenia ([facility]) Sleep apnea no CPAP Venous insufficiency Past Surgical History: Past Surgical History: Procedure Laterality Date ABCESS DRAINAGE Right 09/09/2018 FOOT; ACH COLONOSCOPY 09/19/[address] Hyde DILATION AND CURETTAGE OF UTERUS 05/18/2019 HYSTEROSCOPY 12/23/2021 LEG AMPUTATION THROUGH KNEE Right 06/16/2019 UPPER GASTROINTESTINAL ENDOSCOPY N/A 06/29/2023 Dr Sergio Sibley at [facility]; no specimens WISDOM TOOTH EXTRACTION Allergy(ies): No [...] Date: 10/07/23 Consulted By: Rachael Robertson CNP Room:[facility] A Patient Name: Will Jacinto Allergies: Patient [...] via Secure Chat documented in this encounter [facility] 10-07-2023 History and physical note Images [...] who presents to the emergency department from [facility] for hypoglycemia/unresponsiveness. Staff nurse at facility [...] intake for dinner at 5p (?some soup). Sejag-ce-deiq glucose last night was 116 and he was given 3 glasses of apple juice prior to bed. Found unresponsive and diaphoretic at 0445 this a.m. Wijvl-ei-rkbr glucose 36 at that time. Given 2 doses of glucagon which improved his wguxz-qv-zljv glucose to 61. Glucose was 90 upon [...] Above knee amputation of right lower extremity ([facility]) Acquired absence of other toe(s), unspecified side ([facility]) Anxiety disorder Bipolar 1 disorder ([facility]) Blood circulation, collateral Cellulitis chronic L lower leg COVID 12/08/2021 Depression Diabetes mellitus ([facility]) Type II, on insulin Disease of blood and blood forming organ Endometrial carcinoma ([facility]) 11/25/2020 Endometrial hyperplasia Foot ulcer ([facility]) Hx of blood clots RLE prior to amputation Hyperlipidemia Hypertension Lymphedema MDRO (multiple drug resistant organisms) resistance hx CRE and MRSA in 2018, RLE Morbidly obese ([facility]) Muscle weakness Osteomyelitis ([facility]) Osteomyelitis ([facility]) 2019 RLE Other lack of coordination Other specified soft tissue disorders Other symbolic dysfunctions Schizophrenia ([facility]) Sleep apnea no CPAP Venous insufficiency Past Surgical History: Past Surgical History: Procedure Laterality Date ABCESS DRAINAGE Right 09/09/2018 FOOT; ACH COLONOSCOPY 09/19/[address] Hyde DILATION AND CURETTAGE OF UTERUS 05/18/2019 HYSTEROSCOPY 12/23/2021 LEG AMPUTATION THROUGH KNEE Right 06/16/2019 UPPER GASTROINTESTINAL ENDOSCOPY N/A 06/29/2023 Dr Sergio Sbiley at [facility]; no specimens WISDOM TOOTH EXTRACTION Social History: [...] before lunch/285 units before dinner Lactobacillus Acid-Pectin (Acidophilus/Elbert Pectin) tablet Take 1 tablet by mouth [...] Mobile Relation: Other Rachael Robertson APRN - [facility] Division of Hospitalist Medicine Inpatient Medical Services/[facility] Associated attestation - Carly Nino MD - 10/08/2023 6:08 PM EST I have reviewed the case with the PA/SHAKER REPAIRER. I agree with the current plan of [...] performed. Rounding Hospitalist documented in this encounter [facility] 10-07-2023 Emergency department Note [facility]. Hand off report given to medics. Breonna Palmer RN 10/07/23 1504 Phoned [facility] 4W. Hand off report given to PASTORA Martínez. Breonna Palmer RN 10/07/23 1444 Patient given orange juice. Breonna Palmer RN 10/07/23 1423 Phoned PASTORA Ochoa at [facility] and gave update that patient is to be admitted to [facility] and is currently in stable condition. RN appreciative of update. Breonna Palmer RN 10/07/23 1414 [facility]oned [facility] for [facility]. ETA 1530 Breonna Palmer RN 10/07/23 1331 Repositioned patient for comfort with 2 assists. Breonna Palmer RN 10/07/23 0912 Cleansed patient's face with wash clothe per request, lip balm applied and patient given sips of water. No further needs at this time. Breonna Palmer RN 10/07/23 0952 [place] warmer removed from patient. Oral temp 97.5 [...] who presents to the emergency department from [facility] for hypoglycemia/unresponsiveness. Spoke to Juliane, nurse taking care of him overnight, who reports he was last seen well at 0400 this morning when he asked associate director of nursing to turn on fan because he felt warm. Entirety of HPI obtained from transporting EMS staff and [place] staff due to patient unresponsiveness. Juliane reports [...] intake for dinner at 5p (?some soup). Bpzlt-kl-svfl glucose last night was 116 and he was given 3 glasses of apple juice prior to bed. Found unresponsive and diaphoretic at 0445. Kqbhd-zb-kidl glucose 36 at that time. Given 2 doses of glucagon which improved his jvfln-cs-cfan glucose to 61. Glucose was 90 upon EMS arrival. EMS gave nothing in transport. Repeat ytdyn-zq-dhms glucose 68 here. Juliane reports that mentation [...] side (HCC) Anxiety disorder Bipolar 1 disorder ([facility]) Blood circulation, collateral Cellulitis chronic L lower leg COVID 12/08/2021 Depression Diabetes mellitus ([facility]) Type II, on insulin Disease of blood and blood forming organ Endometrial carcinoma ([facility]) 11/25/2020 Endometrial hyperplasia Foot ulcer ([facility]) Hx of blood clots RLE prior to amputation Hyperlipidemia Hypertension Lymphedema MDRO (multiple drug resistant organisms) resistance hx CRE and MRSA in 2018, RLE Morbidly obese ([facility]) Muscle weakness Osteomyelitis ([facility]) Osteomyelitis ([facility]) 2019 RLE Other lack of coordination Other specified soft tissue disorders Other symbolic dysfunctions Schizophrenia ([facility]) Sleep apnea no CPAP Venous insufficiency SURGICAL HISTORY Past Surgical History: Procedure Laterality Date ABCESS DRAINAGE Right 09/09/2018 FOOT; ACH COLONOSCOPY 09/19/[address] Hyde DILATION AND CURETTAGE OF UTERUS 05/18/2019 HYSTEROSCOPY 12/23/2021 LEG AMPUTATION THROUGH KNEE Right 06/16/2019 UPPER GASTROINTESTINAL ENDOSCOPY N/A 06/29/2023 Dr Sergio Sibley at [facility]; no specimens WISDOM TOOTH EXTRACTION CURRENT MEDICATIONS [...] Abnormal Glucose 68 (*) Narrative: Performed by: [facility], [address] [place] [address] CLIA ID: [id number] LACTIC ACID WITH REFLEX - Normal LACTIC ACID 1.2 POCT GLUCOSE METER UNSOLICITED RESULTS - Normal Glucose 100 Narrative: Performed by: [facility], [address] [place] [address] CLIA ID: [id number] BLOOD CULTURE URINE CULTURE RESPIRATORY PATHOGENS PANEL BY PCR BLOOD CULTURE COMPLETE URINALYSIS WITH REFLEX TO CULTURE Narrative: The following orders were created for panel order Urinalysis Complete with reflex to Culture. Procedure Abnormality Status --------- ------ Complete Urinalysis[[id number]] Please view results for these tests on [...] who presents to the emergency department from [facility] for hypoglycemia/unresponsiveness. Spoke to Juliane, nurse taking care of him overnight, who reports he was last seen well at 0400 this morning when he asked associate director of nursing to turn on fan because he felt [...] intake for dinner at 5p (?some soup). Qggrk-vv-mzdw glucose last night was 116 and he was given 3 glasses of apple juice prior to bed. Found unresponsive and diaphoretic at 0445. Jlqia-iw-hqwd glucose 36 at that time. Given 2 doses of glucagon which improved his mekgq-kd-swvy glucose to 61. Glucose was 90 upon EMS arrival. EMS gave nothing in transport. Repeat ayrea-hx-kqjf glucose 68 here. Juliane reports that mentation [...] necessitating ultrasound-guided IV line by myself. Repeat tdcjs-td-fupu glucose upon obtaining IV line 100. Amp [...] nontender on repeat evaluation. Disposition changed to [facility] telemetry. Accepted by Dr. Spring as telemetry [...] Jacinto, age 57, came to ED6 by [facility] for a chief complaint of hypoglycemia. [facility] last seen him Aox3 at around 0400. recreation therapy aides teacher went in to check on pt and pt was unresponsive with a blood sugar of 36. Nurses at [facility]iary gave him 2 glucagon IM injections and pt's blood sugar came up to 60. EMS reported a blood sugar of 90. On assessment, pt's rectal temp was 91.4F. Blood sugar was 63. Bear ubaldogger applied. Physician put in 20G IV using the ultrasound. Amp of Dextrose given and liter of NS warmed infusing. monitoring analyst applied. Vitals obtained. documented in this encounter [facility] 09-20-2023 Telephone encounter Note Please keep doses the same thank you [facility] Phone: 09-20-2023 Miscellaneous Notes Please keep doses the same thank you Images from the original note were not included. Patient BGL documented in this encounter [facility] 09-20-2023 Telephone encounter Note Images from the original note were not included. Patient BGL [facility] 08-31-2023 Telephone encounter Note Faxed response to [facility]. Thank you! [facility] 08-31-2023 Miscellaneous Notes Faxed response to [facility]. Thank you! Please keep doses the same thank you Images from the original note were not included. Patient's BGL documented in this encounter [facility] 08-30-2023 Telephone encounter Note Please keep doses the same thank you [facility] Phone: 08-30-2023 Telephone encounter Note Images from the original note were not included. Patient's BGL [facility] [email or web address] 08-19-2023 Note Formatting of this n ote might be different from the original. RN called asking me to sign the med rec so the patient can be transported to [facility]< [facility] the med [facility]: 08-19-2023 Note Formatting of this n ote might be different from the original. RN called asking me to sign the med rec so the patient can be transported to SNF< [facility] the [facility]: 08-19-2023 Miscellaneous Notes RN called asking me to sign the med rec so the patient can be transported to SNF< Signed the med reconciliation form Spoke with patient. Agreeable to returning back to [facility]. [facility] and transport time of 430pm. MUSSEL OPENER tasked to send discharge packet to facility. . Plan for patient to discharge today. Discharge order has been placed. Transportation arranged through [facility] by cot set for 4:30 pm. Notified RN and covering TCC of this. Will update patient at bedside. SW remains available if any other needs or concerns arise. Discharge med list transmitted to return back to [facility] via [facility] per TCC request. Referral placed to return back to [facility] via [facility] per TCC request. Await review and response regarding ability to accept. TCC notified. Inpatient status from [facility] with abdominal pain. Admitted to [facility]. ID consulted as patient was [...] iv x 1 throughout the night.Did task MUSSEL OPENER to send referral to [facility]. Discharge plan is to return to [facility] when medically stable... Problem: Pain Goal: My pain/discomfort is manageable Outcome: Progressing met Ice therapy offer/repositioning Problem: Safety Goal: Patient will be injury free during hospitalization Outcome: Progressing met Educate on using call light/ frequent rounding documented in this encounter [facility] 08-19-2023 History of Presen t illness Narrative Report called to Ana at [facility]. Department of Internal Medicine Division of Endocrinology, Diabetes, & Metabolism Endocrinology Note Patient Name: Will Jacinto : 1965 AGE: 57 y.o. Room/Bed: [facility]/[address] Admission Date: 08/17/2023 Visit Date: 08/19/2023 Reason for Endocrine Consult: DM2 Uncontrolled Provider/Team Requesting Consult: Dr. Hill PCP: Jared Guzman Outpt Sweeper Operator Highways: Yes [facility] endocrinology Last seen 02/09/2023, Next appointment 10/27/2023 ASSESSMENT: Type 2 diabetes mellitus with hyperglycemia with nursing home insulin use Leukocytosis Bipolar disorder Dm2 severe [...] units 3 times daily with meals Follow-up: [facility] endocrinology SUBJECTIVE/HPI: CHIEF COMPLAINT: Chief Complaint [...] before lunch/285 units before dinner Lactobacillus Acid-Pectin (Acidophilus/Elbert Pectin) tablet 1 tablet, Oral, 2 times [...] found for: CHOLHDLRATIO No results found for: [id number] Lab Results Component Value Date TSH 2.356 [...] 08/17/2023 Patient Name: WILL JACINTO : 1965 [facility]#: [id number] Exam Date/Time: 08/17/2023 15:08 Procedure: CT ABDOMEN [...] spondylitis. 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 other toe(s), unspecified side (HCC) Anxiety disorder Bipolar 1 disorder (HCC) Blood circulation, collateral Cellulitis chronic L lower leg COVID 12/08/2021 Depression Diabetes mellitus ([facility]) Type II, on insulin Disease of blood and blood forming organ Endometrial carcinoma (HCC) 11/25/2020 Endometrial hyperplasia Foot ulcer (HCC) Hx of blood clots RLE prior to amputation Hyperlipidemia Hypertension Lymphedema MDRO (multiple drug resistant organisms) resistance hx CRE and MRSA in 2018, RLE Morbidly obese ([facility]) Muscle weakness Osteomyelitis (HCC) Osteomyelitis (HCC) 2019 RLE Other lack of coordination Other specified soft tissue disorders Other symbolic dysfunctions Schizophrenia ([facility]) Sleep apnea no CPAP Venous insufficiency Past Surgical History: Past Surgical History: Procedure Laterality Date ABCESS DRAINAGE Right 09/09/2018 FOOT; ACH COLONOSCOPY 09/19/[address] Hyde DILATION AND CURETTAGE OF UTERUS 05/18/2019 HYSTEROSCOPY 12/23/2021 LEG AMPUTATION THROUGH KNEE Right 06/16/2019 UPPER GASTROINTESTINAL ENDOSCOPY N/A 06/29/2023 Dr Sergio Sibley at [facility]; no specimens WISDOM TOOTH EXTRACTION Allergy(ies): No [...] from the original note were not included. [facility] - Infectious Diseases Attending Progress Note Subjective: [...] 176/87 -- -- 90 -- -- 08/18/23 1936 -- (!) 35.9 C (96.7 F) Temporal [...] 99 -- 100 99 CO2 29 -- BUN CREATININE 0.72 -- 0.76 1.00 GLUCOSE [...] original note were not included. PHYSICAL THERAPY [facility] Name/MRN: Maria Luisa Gillaim Ophelia ([id number]) Date: 08/18/2023 PT evaluation orders received and chart review completed. 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 No acute PT needs identified. Rec return to ECF with no PT. Mai Argueta PT Images from the original note were not included. Occupational Therapy OCCUPATIONAL THERAPY [facility] Name/MRN: Maria Luisa Gilliam Ophelia ([id number]) Date: 08/18/2023 Therapy eval and treat orders [...] Scooter Wyatt OT documented in this encounter [facility] 08-19-2023 Note Formatting of this n ote might be different from the original. Spoke with patient. Agreeable to returning back to [facility]. Updated facility via careport of discharge today and transport time of 430pm. MUSSEL OPENER tasked to send discharge packet to facility. . [facility] 08-19-2023 Note Formatting of this n ote might be different from the original. Spoke with patient. Agreeable to returning back to [facility]. Updated facility via careport of discharge today and transport time of 430pm. MUSSEL OPENER tasked to send discharge packet to facility. . [facility] 08-19-2023 Note Formatting of this n ote might be different from the original. Plan for patient to discharge today. Discharge order has been placed. Transportation arranged through [facility] by cot set for 4:30 pm. Notified RN and covering TCC of this. Will update patient at bedside. SW remains available if any other needs or concerns arise. [facility] 08-19-2023 Note Formatting of this n ote might be different from the original. Plan for patient to discharge today. Discharge order has been placed. Transportation arranged through [facility] by cot set for 4:30 pm. Notified RN and covering TCC of this. Will update patient at bedside. SW remains available if any other needs or concerns arise. [facility] 08-19-2023 Note Formatting of this n ote might be different from the original. Discharge med list transmitted to return back to [facility] via [facility] per [facility] request. [facility] 08-19-2023 Note Formatting of this n ote might be different from the original. Discharge med list transmitted to return back to [facility] via [facility] per TCC request. T [facility] 08-19-2023 Hospital course Narrative Discharge Summary [...] I think he can go back to [facility] today SIGNIFICANT DIAGNOSTIC STUDIES: Labs xray CONSULTANTS: ID RECOMMENDED NEXT STEPS: SNF DISCHARGE MEDICATIONS: Medication List START taking these medications clotrimazole 1 % cream Commonly known as: Lotrimin Apply topically 2 times daily. fluconazole 200 MG tablet Commonly known as: Diflucan Take 1 tablet (200 mg) by mouth daily for 12 doses. Start taking on: August 20, 2023 CONTINUE taking these medications Acidophilus/Elbert Pectin tablet ARIPiprazole 10 MG tablet Commonly [...] Complexity: follow up within 7-14 calendar days (27028) [] Severe Complexity: follow up within 7 calendar days (13534) FOLLOW UP TESTING, PENDING RESULTS OR REFERRALS [...] 08/19/2023, 10:09 AM documented in this encounter [facility] 08-19-2023 Note Formatting of this n ote might be different from the original. Referral placed to return back to [facility] via [facility] per TCC request. Await review and response regarding ability to accept. TCC notified. [facility] 08-19-2023 Note Formatting of this n ote might be different from the original. Referral placed to return back to [facility] via [facility] per TCC request. Await review and response regarding ability to accept. TCC notified. [facility] 08-19-2023 Hospital Discharg e instructions Kota [...] ENDOSCOPY N/A 06/29/2023 Dr Sergio Sibley at [facility]; no specimens WISDOM TOOTH EXTRACTION Immunization History: [...] associated with type 2 diabetes mellitus (CMS/HCC) ([facility]) Esophagitis Nausea and vomiting Hyperlipidemia Cellulitis and abscess of lower extremity Chronic acquired lymphedema Cellulitis Hyperandrogenism Uncontrolled type 2 diabetes mellitus with complication Chronic osteomyelitis ([facility]/HCC) ([facility]) 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 ([facility]) Class 3 severe obesity due to excess calories with serious comorbidity and body mass index (BMI) of 50.0 to 59.9 in adult ([facility]) Type 2 diabetes mellitus with hyperglycemia, with long-term current use of insulin (HCC) Hyperglycemia Post-menopausal bleeding Morbid obesity ([facility]) Left leg cellulitis Diabetic foot infection S/P AKA (above knee amputation) unilateral, right ([facility]) Class 3 severe obesity due to excess calories with serious comorbidity and body mass index (BMI) of 60.0 to 69.9 in adult ([facility]) Isolation/Infection: No active isolations [...] (!) 154 kg (339 lb) Mental Status: [facility] Patient Mental Status: oriented, alert, coherent, logical, thought processes intact, and able to concentrate and follow conversation IV Access: CHRISTY IV Access: None Nursing Mobility/ADLs: Walking Total assistance Transfer Total assistance Bathing Total assistance Dressing Total assistance Toileting Total assistance Feeding Independent Barrel Finisher Independent Med Delivery yes Wound Care Documentation [...] select all that are sent with patient): {[facility] Patient Belongings:34309} RN SIGNATURE: MANAGEMENT/SOCIAL WORK SECTION Inpatient Status Date: Readmission Risk Assessment Score: @READMISSIONRISKDETAILS@ Discharging to Facility/ Agency Name: [facility] Address:[address] [place], [place] [address] Dialysis Facility (if applicable) Name: Address: Dialysis Schedule: Phone: Fax: Mica Sizer/Drug Enforcement Agent signature: ICIAN SECTION Prognosis: fair Condition at Discharge: stable Rehab Potential (if transferring to Rehab): fair Recommended Labs or Other Treatments After Discharge: Physician Certification: I certify the above information and transfer of Will Jacinto is necessary for the continuing treatment of the diagnosis listed and that he requires [facility] facility for greater than 30 days. Update Admission H&P: No change in H&P PHYSICIAN SIGNATURE: documented in this encounter [facility] 08-19-2023 Note Formatting of this n ote might be different from the original. Inpatient status from [facility] with abdominal pain. Admitted to [facility]. ID consulted as patient was [...] iv x 1 throughout the night.Did task MUSSEL OPENER to send referral to [facility]. Discharge plan is to return to [facility] when medically stable... [facility] 08-19-2023 Note Formatting of this n ote might be different from the original. Inpatient status from [facility] with abdominal pain. Admitted to [facility]. ID consulted as patient was in ER 10 days ago with diagnosis of pyelonephritis. Started on po diflucan. Endocrinology consulted. BS ac and hs with coverage. BS was 29 on 08/17. BS 223 this am. Urine cultures on 08/08 positive for klebsiella(per ID note adequately treated with antimicrobial for last 10 days). Did require apresoline iv x 1 throughout the night.Did task MUSSEL OPENER to send referral to [facility]. Discharge plan is to return to [facility] when medically stable... [facility] 08-18-2023 Plan of care note Problem: Pain Goal: My pain/discomfort is manageable Outcome: Progressing met Ice therapy offer/repositioning Problem: Safety Goal: Patient will be injury free during hospitalization Outcome: Progressing met Educate on using call light/ frequent rounding [facility] 08-18-2023 Emergency department Note Endocrinology melodie, have tried to contact multiple times in regards to Insulin order w/o response. Flor Alonso RN 08/18/[address] [facility] 08-18-2023 Emergency department Note Endocrinology melodie, [...] acutely negative except as in the [place]. 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) Acquired absence of other toe(s), unspecified side ([facility]) Anxiety disorder Bipolar 1 disorder ([facility]) Blood circulation, collateral Cellulitis chronic L lower leg COVID 12/08/2021 Depression Diabetes mellitus ([facility]) Type II, on insulin Disease of blood and blood forming organ Endometrial carcinoma ([facility]) 11/25/2020 Endometrial hyperplasia Foot ulcer ([facility]) Hx of blood clots RLE prior to amputation Hyperlipidemia Hypertension Lymphedema MDRO (multiple drug resistant organisms) resistance hx CRE and MRSA in 2018, RLE Morbidly obese ([facility]) Muscle weakness Osteomyelitis (HCC) Osteomyelitis ([facility]) 2019 RLE Other lack of coordination Other specified soft tissue disorders Other symbolic dysfunctions Schizophrenia ([facility]) Sleep apnea no CPAP Venous insufficiency SURGICAL HISTORY Past Surgical History: Procedure Laterality Date ABCESS DRAINAGE Right 09/09/2018 FOOT; ACH COLONOSCOPY 09/19/[address] Hyde DILATION AND CURETTAGE OF UTERUS 05/18/2019 HYSTEROSCOPY 12/23/2021 LEG AMPUTATION THROUGH KNEE Right 06/16/2019 UPPER GASTROINTESTINAL ENDOSCOPY N/A 06/29/2023 Dr Sergio Sibley at [facility]; no specimens WISDOM TOOTH EXTRACTION CURRENT MEDICATIONS [...] Culture. Procedure Abnormality Status --------- ------ Complete Urinalysis[[id number]] Please view results for these tests on [...] medicine further management Brandon Leblanc DO 08/17/23 5527 Arrived via ems from snf, co ABD [...] Mendes RN 08/17/232045 documented in this encounter [facility] 08-18-2023 Consult note Associated Order (s): IP CONSULT TO ENDOCRINOLOGY Department of Internal Medicine Division of Endocrinology, Diabetes, & Metabolism Endocrinology Note Patient Name: Will Jacinto : 1965 AGE: 57 y.o. Room/Bed: 06/15 Admission Date: 08/17/2023 Visit Date: 08/18/2023 Reason for Endocrine Consult: DM2 Uncontrolled Provider/Team Requesting Consult: Dr. 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 other toe(s), unspecified side (HCC) Anxiety disorder Bipolar 1 disorder ([facility]) Blood circulation, collateral Cellulitis chronic L lower leg COVID 12/08/2021 Depression Diabetes mellitus ([facility]) Type II, on insulin Disease of blood and blood forming organ Endometrial carcinoma ([facility]) 11/25/2020 Endometrial hyperplasia Foot ulcer ([facility]) Hx of blood clots RLE prior to amputation Hyperlipidemia Hypertension Lymphedema MDRO (multiple drug resistant organisms) resistance hx CRE and MRSA in 2018, RLE Morbidly obese ([facility]) Muscle weakness Osteomyelitis (HCC) Osteomyelitis (HCC) 2019 RLE Other lack of coordination Other specified soft tissue disorders Other symbolic dysfunctions Schizophrenia ([facility]) Sleep apnea no CPAP Venous insufficiency Past Surgical History: Past Surgical History: Procedure Laterality Date ABCESS DRAINAGE Right 09/09/2018 FOOT; ACH COLONOSCOPY 09/19/[address] Hyde DILATION AND CURETTAGE OF UTERUS 05/18/2019 HYSTEROSCOPY 12/23/2021 LEG AMPUTATION THROUGH KNEE Right 06/16/2019 UPPER GASTROINTESTINAL ENDOSCOPY N/A 06/29/2023 Dr Sergio Sibley at [facility]; no specimens WISDOM TOOTH EXTRACTION Allergy(ies): No [...] state/prognosis on the date of this note. [facility] 08-18-2023 Consult note Associated Order (s): IP CONSULT TO ENDOCRINOLOGY Department of Internal Medicine Division of Endocrinology, Diabetes, & Metabolism Endocrinology Note Patient Name: Will Jacinto : 1965 AGE: 57 y.o. Room/Bed: 06/15 Admission Date: 08/17/2023 Visit Date: 08/18/2023 Reason for Endocrine Consult: DM2 Uncontrolled Provider/Team Requesting Consult: Dr. 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 other toe(s), unspecified side ([facility]) Anxiety disorder Bipolar 1 disorder ([facility]) Blood circulation, collateral Cellulitis chronic L lower leg COVID 12/08/2021 Depression Diabetes mellitus ([facility]) Type II, on insulin Disease of blood and blood forming organ Endometrial carcinoma ([facility]) 11/25/2020 Endometrial hyperplasia Foot ulcer ([facility]) Hx of blood clots RLE prior to amputation Hyperlipidemia Hypertension Lymphedema MDRO (multiple drug resistant organisms) resistance hx CRE and MRSA in 2018, RLE Morbidly obese ([facility]) Muscle weakness Osteomyelitis ([facility]) Osteomyelitis (HCC) 2019 RLE Other lack of coordination Other specified soft tissue disorders Other symbolic dysfunctions Schizophrenia ([facility]) Sleep apnea no CPAP Venous insufficiency Past Surgical History: Past Surgical History: Procedure Laterality Date ABCESS DRAINAGE Right 09/09/2018 FOOT; ACH COLONOSCOPY 09/19/[address] Hyde DILATION AND CURETTAGE OF UTERUS 05/18/2019 HYSTEROSCOPY 12/23/2021 LEG AMPUTATION THROUGH KNEE Right 06/16/2019 UPPER GASTROINTESTINAL ENDOSCOPY N/A 06/29/2023 Dr Sergio Sibley at [facility]; no specimens WISDOM TOOTH EXTRACTION Allergy(ies): No [...] from the original note were not included. [facility] - Infectious Diseases Attending Consult Note Reason for Consult: Complicated UTI History of Present Illness: Patient is 57 year old admitted to [facility] with abdominal discomfort N/V. Patient was in [...] side (HCC) Anxiety disorder Bipolar 1 disorder ([facility]) Blood circulation, collateral Cellulitis chronic L lower leg COVID 12/08/2021 Depression Diabetes mellitus ([facility]) Type II, on insulin Disease of blood and blood forming organ Endometrial carcinoma ([facility]) 11/25/2020 Endometrial hyperplasia Foot ulcer (HCC) Hx of blood clots RLE prior to amputation Hyperlipidemia Hypertension Lymphedema MDRO (multiple drug resistant organisms) resistance hx CRE and MRSA in 2018, RLE Morbidly obese ([facility]) Muscle weakness Osteomyelitis (HCC) Osteomyelitis (HCC) 2019 RLE Other lack of coordination Other specified soft tissue disorders Other symbolic dysfunctions Schizophrenia ([facility]) Sleep apnea no CPAP Venous insufficiency Past Surgical History: Past Surgical History: Procedure Laterality Date ABCESS DRAINAGE Right 09/09/2018 FOOT; ACH COLONOSCOPY 09/19/[address] Hyde DILATION AND CURETTAGE OF UTERUS 05/18/2019 HYSTEROSCOPY 12/23/2021 LEG AMPUTATION THROUGH KNEE Right 06/16/2019 UPPER GASTROINTESTINAL ENDOSCOPY N/A 06/29/2023 Dr Sergio Sibley at [facility]; no specimens WISDOM TOOTH EXTRACTION Current Medications: [...] 12.5 g 12.5 g IntraVENous PRN Brandon Deana, DO 12.5 g at 08/17/231808 dilTIAZem CD [...] before lunch/285 units before dinner Lactobacillus Acid-Pectin (Acidophilus/Elbert Pectin) tablet Take 1 tablet by mouth [...] accounting for open encounter. Art Reddy MD, [facility] [place] documented in this encounter [facility] 08-18-2023 History and physical note Department [...] Acquired absence of other toe(s), unspecified side ([facility]) Anxiety disorder Bipolar 1 disorder ([facility]) Blood circulation, collateral Cellulitis chronic L lower leg COVID 12/08/2021 Depression Diabetes mellitus ([facility]) Type II, on insulin Disease of blood and blood forming organ Endometrial carcinoma ([facility]) 11/25/2020 Endometrial hyperplasia Foot ulcer ([facility]) Hx of blood clots RLE prior to amputation Hyperlipidemia Hypertension Lymphedema MDRO (multiple drug resistant organisms) resistance hx CRE and MRSA in 2018, RLE Morbidly obese ([facility]) Muscle weakness Osteomyelitis ([facility]) Osteomyelitis ([facility]) 2019 RLE Other lack of coordination Other specified soft tissue disorders Other symbolic dysfunctions Schizophrenia ([facility]) Sleep apnea no CPAP Venous insufficiency Past Surgical History: Past Surgical History: Procedure Laterality Date ABCESS DRAINAGE Right 09/09/2018 FOOT; ACH COLONOSCOPY 09/19/[address] Hyde DILATION AND CURETTAGE OF UTERUS 05/18/2019 HYSTEROSCOPY 12/23/2021 LEG AMPUTATION THROUGH KNEE Right 06/16/2019 UPPER GASTROINTESTINAL ENDOSCOPY N/A 06/29/2023 Dr Sergio Sibley at [facility]; no specimens WISDOM TOOTH EXTRACTION Medications Prior [...] diabetes mellitus with complication Chronic osteomyelitis (CMS/HCC) ([facility]) 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 ([facility]) Class 3 severe obesity due to excess calories with serious comorbidity and body mass index (BMI) of 50.0 to 59.9 in adult (HCC) Type 2 diabetes mellitus with hyperglycemia, with long-term current use of insulin (HCC) Hyperglycemia Post-menopausal bleeding Morbid obesity ([facility]) Left leg cellulitis Diabetic foot infection S/P AKA (above knee amputation) unilateral, right ([facility]) Class 3 severe obesity due to excess calories with serious comorbidity and body mass index (BMI) of 60.0 to 69.9 in adult (HCC) Chest pain Chest pain, unspecified type Upper abdominal pain Intertriginous homa Abd pain DM 2 HTN HPL Plan Obs admit Hopefully back to snf tomorrow NABIL HILL DO 08/18/23 10:00 AM [facility] 08-18-2023 History and physical note Department [...] Acquired absence of other toe(s), unspecified side ([facility]) Anxiety disorder Bipolar 1 disorder ([facility]) Blood circulation, collateral Cellulitis chronic L lower leg COVID 12/08/2021 Depression Diabetes mellitus ([facility]) Type II, on insulin Disease of blood and blood forming organ Endometrial carcinoma ([facility]) 11/25/2020 Endometrial hyperplasia Foot ulcer ([facility]) Hx of blood clots RLE prior to amputation Hyperlipidemia Hypertension Lymphedema MDRO (multiple drug resistant organisms) resistance hx CRE and MRSA in 2018, RLE Morbidly obese ([facility]) Muscle weakness Osteomyelitis ([facility]) Osteomyelitis ([facility]) 2019 RLE Other lack of coordination Other specified soft tissue disorders Other symbolic dysfunctions Schizophrenia ([facility]) Sleep apnea no CPAP Venous insufficiency Past Surgical History: Past Surgical History: Procedure Laterality Date ABCESS DRAINAGE Right 09/09/2018 FOOT; ACH COLONOSCOPY 09/19/[address] Hyde DILATION AND CURETTAGE OF UTERUS 05/18/2019 HYSTEROSCOPY 12/23/2021 LEG AMPUTATION THROUGH KNEE Right 06/16/2019 UPPER GASTROINTESTINAL ENDOSCOPY N/A 06/29/2023 Dr Sergio Sibley at [facility]; no specimens WISDOM TOOTH EXTRACTION Medications Prior [...] S/P AKA (above knee amputation) unilateral, right ([facility]) Class 3 severe obesity due to excess calories with serious comorbidity and body mass index (BMI) of 60.0 to 69.9 in adult (HCC) Chest pain Chest pain, unspecified type Upper abdominal pain Intertriginous homa Abd pain DM 2 HTN HPL Plan Obs admit Hopefully back to [facility] tomorrow NABIL HILL DO 08/18/23 10:00 AM documented in this encounter [facility] 08-18-2023 Consult note Associated Order (s): IP CONSULT TO INFECTIOUS DISEASES Images from the original note were not included. [facility] - Infectious Diseases Attending Consult Note Reason for Consult: Complicated UTI History of Present Illness: Patient is 57 year old admitted to [facility] with abdominal discomfort N/V. Patient was in [...] Acquired absence of other toe(s), unspecified side ([facility]) Anxiety disorder Bipolar 1 disorder ([facility]) Blood circulation, collateral Cellulitis chronic L lower leg COVID 12/08/2021 Depression Diabetes mellitus ([facility]) Type II, on insulin Disease of blood and blood forming organ Endometrial carcinoma ([facility]) 11/25/2020 Endometrial hyperplasia Foot ulcer ([facility]) Hx of blood clots RLE prior to amputation Hyperlipidemia Hypertension Lymphedema MDRO (multiple drug resistant organisms) resistance hx CRE and MRSA in 2018, RLE Morbidly obese ([facility]) Muscle weakness Osteomyelitis ([facility]) Osteomyelitis ([facility]) 2019 RLE Other lack of coordination Other specified soft tissue disorders Other symbolic dysfunctions Schizophrenia ([facility]) Sleep apnea no CPAP Venous insufficiency Past Surgical History: Past Surgical History: Procedure Laterality Date ABCESS DRAINAGE Right 09/09/2018 FOOT; ACH COLONOSCOPY 09/19/[address] Hyde DILATION AND CURETTAGE OF UTERUS 05/18/2019 HYSTEROSCOPY 12/23/2021 LEG AMPUTATION THROUGH KNEE Right 06/16/2019 UPPER GASTROINTESTINAL ENDOSCOPY N/A 06/29/2023 Dr Sergio Sibley at [facility]; no specimens WISDOM TOOTH EXTRACTION Current Medications: [...] Nabil M Esterle, DO 10 mg at 08/18/2328 aspirin EC tablet 81 mg 81 mg [...] M Esterle, DO 30 mg at 08/17/23 232 FLUoxetine (PROzac) capsule 40 mg 40 mg Oral Daily Nabil M Esterle, DO 40 mg at 08/18/2328 gabapentin (Neurontin) capsule 100 mg 100 mg [...] before lunch/285 units before dinner Lactobacillus Acid-Pectin (Acidophilus/Elbert Pectin) tablet Take 1 tablet by mouth [...] accounting for open encounter. Art Reddy MD, [facility], [facility] 08-17-2023 Emergency department Note Bed: 27 Expected date: Expected time: Means of arrival: Comments: PHYSICIANS Lisa Curtis RN 08/17/[address] [facility] 08-17-2023 Emergency department Note Bed: 08 Expected date: Expected time: Means of arrival: Comments: Main 2 Dalila Mendes RN 08/17/232045 [facility] 08-17-2023 Emergency department Triage note Arrived [...] within reach, continue with plan of care [facility] 08-17-2023 Physician Emergency department Note EMERGENCY [...] acutely negative except as in the [place]. 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) Acquired absence of other toe(s), unspecified side (HCC) Anxiety disorder Bipolar 1 disorder ([facility]) Blood circulation, collateral Cellulitis chronic L lower leg COVID 12/08/2021 Depression Diabetes mellitus ([facility]) Type II, on insulin Disease of blood and blood forming organ Endometrial carcinoma ([facility]) 11/25/2020 Endometrial hyperplasia Foot ulcer ([facility]) Hx of blood clots RLE prior to amputation Hyperlipidemia Hypertension Lymphedema MDRO (multiple drug resistant organisms) resistance hx CRE and MRSA in 2018, RLE Morbidly obese ([facility]) Muscle weakness Osteomyelitis (HCC) Osteomyelitis (HCC) 2019 RLE Other lack of coordination Other specified soft tissue disorders Other symbolic dysfunctions Schizophrenia ([facility]) Sleep apnea no CPAP Venous insufficiency SURGICAL HISTORY Past Surgical History: Procedure Laterality Date ABCESS DRAINAGE Right 09/09/2018 FOOT; ACH COLONOSCOPY 09/19/[address] Hyde DILATION AND CURETTAGE OF UTERUS 05/18/2019 HYSTEROSCOPY 12/23/2021 LEG AMPUTATION THROUGH KNEE Right 06/16/2019 UPPER GASTROINTESTINAL ENDOSCOPY N/A 06/29/2023 Dr Sergio Sibley at [facility]; no specimens WISDOM TOOTH EXTRACTION CURRENT MEDICATIONS [...] Culture. Procedure Abnormality Status --------- ------ Complete Urinalysis[[id number]] Please view results for these tests on [...] 15 mg (15 mg IntraVENous Given 08/17/23 134) sodium chloride 0.9 % bolus 500 mL [...] Medicine Provider Aaron Burgos DO 08/17/[address] [facility] 08-17-2023 Physician Emergency department Note Pt [...] medicine further management Brandon Leblanc DO 08/17/[address] [facility] 08-12-2023 Telephone encounter Note Faxed over recommendation. Thank you! [facility] 08-12-2023 Miscellaneous Notes Faxed over recommendation. Thank you! Please keep doses the same thank you Images from the original note were not included. Patient BGL documented in this encounter [facility] 08-12-2023 Telephone encounter Note Please keep doses the same thank you [facility] [email or web address] Work Phone: 08-11-2023 Telephone encounter Note Images from the original note were not included. Patient BGL [facility] 08-09-2023 Telephone encounter Note Pt rescheduled appt with herber Ramos to 08/13/23; respiratory consult for lung nodule was placed on 08/07/[address] AP confirmed 7mm lung nodule. Navigator will continue to follow and assist with follow up as needed after appt 08/13. [facility] 08-09-2023 Miscellaneous Notes Pt rescheduled appt [...] Guzman office. Received call from someone at [phone] stating they got a call to this [...] finding.Await comparison report. documented in this encounter [facility] 08-08-2023 Emergency department Note Physicians [facility]arrived and report given. Patient returned to SNF. SNF was informed. Karlos Garcia RN 08/08/23 1448 Karlos Garcia RN 08/08/[address] [facility] 08-08-2023 Emergency department Note [facility]arrived and report given. Patient returned to SNF. SNF was informed. Karlos Garcia RN 08/08/23 1448 Karlos Garcia RN 08/08/23 1449 Karlos Garcia RN 08/08/23 1123 Karlos Garcia RN 08/08/23 112 Bed: 17 Expected date: Expected time: Means of arrival: Comments: Nalini Mendes RN 08/08/23 0632 documented in this encounter [facility] 08-08-2023 Emergency department Note Karlos Garcia RN 08/08/23 1123 Karlos Garcia RN 08/08/231122 [facility] 08-08-2023 Emergency department Note Bed: 17 Expected date: Expected time: Means of arrival: Comments: Nalini Mendes RN 08/08/[address] [facility] 07-23-2023 Telephone encounter Note Pt to see Herber Ramos in [facility] 07/30/23 [facility] 07-23-2023 Miscellaneous Notes Pt to see Herber Ramos in [facility] 07/30/[address] Guzman office, pt does not have any scheduled fu. Provided new phone number for patient. Added to chart. Faxed report and contact info for navigator to Jared abarca. Received call from someone at [phone] stating they got a call to this [...] finding.Await comparison report. documented in this encounter [facility] 07-20-2023 Telephone encounter Note Contacted Dr. Guzman office, pt does not have any scheduled fu. Provided new phone number for patient. Added to chart. [facility] 07-20-2023 Telephone encounter Note Faxed report and contact info for navigator to Jared Guzman office. T [facility] 07-20-2023 Telephone encounter Note Received call from someone at [phone] stating they got a call to this number and this is a work phone. Patient and person identified via phone do not match. Will not attempt phone number again. EC contact attempted but no answer. T [facility] 07-15-2023 Telephone encounter Note Lm requesting a return phone call to discuss finding [facility] 07-05-2023 Telephone encounter Note Patient appeared on ED Nuance search after CTA chest 06-28-2023 noted a 7 mm right middle lobe lung nodule. Imaging was completed for chest pain and history of DVT. Outside facility imaging on 11-22-2020 noted a right middle lobe 3 mm nodule. Requested outside facility imaging for comparison to determine whether this is an enlarging finding.Await comparison report. [facility] 07-01-2023 Note Formatting of this n ote might be different from the original. Return to [facility] this afternoon at 1:00. [facility] messaged the facility with the dc time. [facility] ambulance to transport. Ambulance transport form completed. [facility] 07-01-2023 Note Formatting of this n ote might be different from the original. Return to [facility] this afternoon at 1:00. [facility] messaged the facility with the dc time. [facility] to transport. Ambulance transport form completed. [facility] 07-01-2023 Miscellaneous Notes Return to [facility] this afternoon at 1:00. [employer] messaged the facility with the dc time. [facility] to transport. Ambulance transport form completed. Discharge med list transmitted to [facility] via [employer] per TCC request. Patient Choice Patient Name: WILL JACINTO Date of : 1965 All Providers Sent Referral Name: [facility] Phone: [phone] Address: [address] [place] [address] Images from the original note were not included. Care Management Progress Note Pt has discharge order placed. Tasked MUSSEL OPENER to send discharge paperwork to [facility]. Notified BILINGUAL TEACHER AIDE to arrange transportation. Facility notified pt to return today. Discharge Milestones and Delays Expected Date/Time: 07/01/2023 Midday Disposition: Intermediate Facility Transport status: No current request Discharge Milestones Completed Place discharge order Complete med reconciliation Case mgmt discharge readiness Expected Discharge History Expected Date/Time Set By Reviewed At 07/01/2023 Midday Nabil Hill DO 06/30/2023 7:25 PM 06/30/2023 Nabil Hill DO 06/28/2023 8:48 AM 06/29/2023 Herber Moore RN 06/28/2023 7:51 AM 06/29/2023 Rosaura Mustafa DO 06/28/2023 6:19 AM 06/29/2023 Rosaura Mustafa DO 06/28/2023 5:11 AM Length of Stay (Days): 3 GMLOS: 1.7 Images from the original note were not included. Care Management Progress Note Pt remains on 2E due to chest pain. S/P EGD 06/29-GI following.Cardiology- no evidence of ACS. Endocrine following. Pt to return to [facility] at discharge. Discharge Milestones and Delays Expected Date/Time: 06/30/[address] discharge order Complete med reconciliation Case mgmt discharge readiness Clinical Stability Diagnsotic Workup Expected Discharge History Expected Date/Time Set By Reviewed At 06/30/2023 Nabil Hill, DO 06/28/2023 8:48 AM 06/29/2023 Herber Moore RN 06/28/2023 7:51 AM 06/29/2023 Rosaura Mustafa [...] for EGD today. Wheelchair bound. DC plan: [facility], bed hold. No authorization needed. Discharge Milestones and Delays Expected Date/Time: 06/30/[address] discharge order Complete med reconciliation Case mgmt discharge readiness Clinical Stability Diagnsotic Workup Expected Discharge History Expected Date/Time Set By Reviewed At 06/30/2023 Nabil Hill, DO 06/28/2023 8:48 AM 06/29/2023 Herber Moore RN 06/28/2023 7:51 AM 06/29/2023 Rosaura Mustafa DO 06/28/2023 6:19 AM 06/29/2023 Rosaura Mustafa DO 06/28/2023 5:11 AM Length of Stay (Days): 1 GMLOS: 1.7 Report called to Herber Hawk POST ENDOSCOPY PROCEDURE TRANSFER REPORT Procedure completed: EGD Findings: WDL Specimens obtained: None Medications administered: 200mg Propofol per [employer] Additional Info: Adult diet regular; 3 carb choices (45gm/meal); see Dr Sibley' orders For additional Questions please call Endoscopy at [phone]. Thank You! Dr Sibley in [facility] Patient Name: Will Jacinto Procedure Date: 06/29/2023 8:19 AM Gender: Female Date of : 1965 Age: 57 Admit Type: Inpatient Note Status: Finalized Endoscopist: Sergio Sibley DO, [id number] Procedure: Upper GI endoscopy Indications: Chest pain [...] immediate complications. Procedure Code(s): --- Professional --- 08133, Esophagogastroduodenoscopy, flexible, transoral; diagnostic, including collection of specimen(s) by brushing or washing, when performed (separate procedure) --- Technical --- 78359, Esophagogastroduodenoscopy, flexible, transoral; diagnostic, including collection of specimen(s) by brushing or washing, when performed (separate procedure) Diagnosis Code(s): --- Professional --- R07.89, Other chest pain R11.2, Nausea with vomiting, unspecified --- Technical --- R07.89, Other chest pain R11.2, Nausea with vomiting, unspecified CPT copyright 2021 [employer]. All rights reserved. The codes documented in this report are preliminary and upon leather piece inspector review may be revised to meet current [...] Limits Permission given to speak with patient telephone services sales representative/caregiver as indicated: Yes (Jovana Quesada ([facility]) [phone]) Confirmation of Payer with patient/family: Yes Payer Name: [facility] Dual [place]: No Confirmation of Primary Care Physician: Confirmed PCP Name: Jared Guzman Seen in last 2 years?: Yes Primary Caregiver: Other (Comment) ([facility] staff) If assistance needed, confirmed caregiver ready, willing and able to care for patient at discharge: Yes Confirmed with: Patient states staff from [facility] Living Arrangements Current Residence: ([facility]) Number of Floors Number of Entry Steps: Bed/Bath Levels: Facility: [facility] Facility Name: [facility] Plan to Return: Yes Lives with: Support Systems: Family members Activities of Daily Living Ambulation: Total Care (wheelchair) Bathing/Dressing: Total Care Elimination/Continence/Toileting : Assistance Feeding: Independent Who Assists with Activities of Daily Living: Staff from [facility] Instrumental Activities of Daily Living Prescription Coverage: Yes Pharmacy Used: Pharmacy through [facility] Medication Management: Assistance Type: Dose packaging system Who assists with medication securing and setup?: [facility] staff Transportation/Shopping: Assistance Provider Transportation Mode: Needs Assistance with Transportation at Discharge: No Meal Preparation: Assistance Provider Meal Prep Assistance Provider Name: [facility] staff Laundry/Cleaning: Assistance Provider Laundry/Cleaning Assistance Provider Name: [facility] staff Finances/Bill Paying: Assistance Provider Finances/Bill Payer Assistance Provider Name: Family Communication: Independent Types of Care Services/Equipment Utilized Care Services: Dialysis Type: NA Durable Medical Equipment: Wheelchair (standard or power) Patient's Goal/Discharge Plan Patient expects to be discharged to: Back to [facility]. Discharge Planning Actions: Continue to follow Patient's [...] R bka, is wheelchair bound. Lives at [facility] and plans to return. Cardiology consulted. Task sent to [facility] to [facility] return referral to [facility]. TCC will continue to follow. Herber Moore RN Patient was referred to the [facility] service for admission but his primary care physician is covered by Dr. Hill. Dr. Hill will see and admit. Attending changed to Dr. Hill. documented in this encounter [facility] 07-01-2023 Note Formatting of this n ote might be different from the original. Discharge med list [facility] request. [facility] 07-01-2023 Note Formatting of this n ote might be different from the original. Discharge med list transmitted to [facility] via [employer] per [facility] request. [facility] 07-01-2023 Hospital course Narrative Discharge Summary [...] improve. He was then discharged back to [facility] for continued care SIGNIFICANT DIAGNOSTIC STUDIES: EGD xrays labs CONSULTANTS: Cardio and GI RECOMMENDED NEXT STEPS: none DISCHARGE MEDICATIONS: Medication List CONTINUE taking these medications Acidophilus/Elbert Pectin tablet ARIPiprazole 10 MG tablet Commonly [...] Complexity: follow up within 7-14 calendar days (23287) [] Severe Complexity: follow up within 7 calendar days (89531) FOLLOW UP TESTING, PENDING RESULTS OR REFERRALS AT TRANSITIONAL CARE VISIT: [] Yes [] No PENDING STUDIES: none DISPOSITION: Skilled Facility [facility] Follow up with Sergio Sibley DO [address] [place] [address] [address] [place] [phone] Follow up As needed INSTRUCTIONS TO MA/SW: [...] 07/01/2023, 8:48 AM documented in this encounter [facility] 07-01-2023 Note Formatting of this n ote might be different from the original. Patient Choice Patient Name: WILL JACINTO Date of : 1965 All Providers Sent Referral Name: [facility] Phone: [phone] Address: [place] [address] [facility] 07-01-2023 Note Formatting of this n ote might be different from the original. Patient Choice Patient Name: WILL JACINTO Date of : 1965 All Providers Sent Referral Name: [facility] Phone: [phone] Address: [place] [address] [facility] 07-01-2023 Note Formatting of this n ote is different from the original. Images from the original note were not included. Care Management Progress Note Pt has discharge order placed. Tasked MUSSEL OPENER to send discharge paperwork to [facility]. Notified BILINGUAL TEACHER AIDE to arrange transportation. Facility notified pt to return today. Discharge Milestones and Delays Expected Date/Time: 07/01/2023 Midday Disposition: Intermediate Facility Transport status: No current request Discharge Milestones Completed Place discharge order Complete med reconciliation Case mgmt discharge readiness Expected Discharge History Expected Date/Time Set By Reviewed At 07/01/2023 Midday Nabil Hill, DO 06/30/2023 7:25 PM 06/30/2023 Nabil Hill, DO 06/28/2023 8:48 AM 06/29/2023 Herber Moore RN 06/28/2023 7:51 AM 06/29/2023 Rosaura Mustafa DO 06/28/2023 6:19 AM 06/29/2023 Rosaura Mustafa, DO 06/28/2023 5:11 AM Length of Stay (Days): 3 GMLOS: 1.7 [facility] 07-01-2023 Note Formatting of this n ote is different from the original. Images from the original note were not included. Care Management Progress Note Pt has discharge order placed. Tasked MUSSEL OPENER to send discharge paperwork to [facility]. Notified BILINGUAL TEACHER AIDE to arrange transportation. Facility notified pt to return today. Discharge Milestones and Delays Expected Date/Time: 07/01/2023 Midday Disposition: Intermediate Facility Transport status: No current request Discharge Milestones Completed Place discharge order Complete med reconciliation Case mgmt discharge readiness Expected Discharge History Expected Date/Time Set By Reviewed At 07/01/2023 Midday Nabil Hill DO 06/30/2023 7:25 PM 06/30/2023 Nabil Hill DO 06/28/2023 8:48 AM 06/29/2023 Herber Moore RN 06/28/2023 7:51 AM 06/29/2023 Rosaura Mustafa DO 06/28/2023 6:19 AM 06/29/2023 Rosaura Mustafa DO 06/28/2023 5:11 AM Length of Stay (Days): 3 GMLOS: 1.7 [facility] 06-30-2023 Hospital Discharg e instructions David Lui RN - 06/30/2023 7:25 PM EDT Continuity of Care Form Patient Name: Will Jacinto : 1965 Admit date: 06/28/2023 Discharge date: 07/01/23 Code Status Order: Full Code Advance Directives: N Admitting Physician: Nabil Hill DO PCP: Jared Guzman Discharging Nurse: Janina Discharging Hospital Unit/Room#: B2-257/B2-257 A Discharging Unit Phone Number: [phone] Emergency Contact: Extended Emergency Contact Information Primary Emergency Contact: Quesaad,Beth Relation: Relative Secondary Emergency Contact: Carola Lubin Mobile Relation: Other Past Surgical History: Past Surgical History: Procedure Laterality Date ABCESS DRAINAGE Right 09/09/2018 FOOT; ACH COLONOSCOPY 09/19/[address] Hyde DILATION AND CURETTAGE OF UTERUS 05/18/2019 HYSTEROSCOPY 12/23/2021 LEG AMPUTATION THROUGH KNEE Right 06/16/2019 UPPER GASTROINTESTINAL ENDOSCOPY N/A 06/29/2023 Dr Sergio Sibley at [facility]; no specimens WISDOM TOOTH EXTRACTION Immunization History: [...] (BMI) of 60.0 to 69.9 in adult ([facility]) Isolation/Infection: Contact CRE Nurse [...] Total assistance Toileting Total assistance Feeding Independent Barrel Finisher Independent Med Delivery yes Wound Care Documentation [...] Score: @READMISSIONRISKDETAILS@ Discharging to Facility/ Agency Name: [facility] Address: [facility] [place] [address] Fax: Dialysis Facility (if applicable) Name: Address: Dialysis Schedule: Phone: Fax: Mica Sizer/Drug Enforcement Agent signature: ICIAN SECTION Prognosis: fair Condition at Discharge: stable Rehab Potential (if transferring to Rehab): fair Recommended Labs or Other Treatments After Discharge: none Physician Certification: I certify the above information and transfer of Will Jacinto is necessary for the continuing treatment of the diagnosis listed and that he requires [facility] facility for greater than 30 days. Update Admission H&P: No change in H&P PHYSICIAN SIGNATURE: documented in this encounter [facility] 06-30-2023 Note Formatting of this n ote is different from the original. Images from the original note were not included. Care Management Progress Note Pt remains on 2E due to chest pain. S/P EGD 06/29-GI following.Cardiology- no evidence of ACS. Endocrine following. Pt to return to [facility] at discharge. Discharge Milestones and Delays Expected Date/Time: 06/30/[address] discharge order Complete med reconciliation Case mgmt discharge readiness Clinical Stability Diagnsotic Workup Expected Discharge History Expected Date/Time Set By Reviewed At 06/30/2023 Nabil Hill DO 06/28/2023 8:48 AM 06/29/2023 Herber Moore RN 06/28/2023 7:51 AM 06/29/2023 Rosaura Mustafa DO 06/28/2023 6:19 AM 06/29/2023 Rosaura Mustafa DO 06/28/2023 5:11 AM Length of Stay (Days): 2 GMLOS: 1.7 [facility] 06-30-2023 Note Formatting of this n ote is different from the original. Images from the original note were not included. Care Management Progress Note Pt remains on 2E due to chest pain. S/P EGD 06/29-GI following.Cardiology- no evidence of ACS. Endocrine following. Pt to return to [facility] at discharge. Discharge Milestones and Delays Expected Date/Time: 06/30/[address] discharge order Complete med reconciliation Case mgmt discharge readiness Clinical Stability Diagnsotic Workup Expected Discharge History Expected Date/Time Set By Reviewed At 06/30/2023 Nabil Hill, DO 06/28/2023 8:48 AM 06/29/2023 Herber Moore RN 06/28/2023 7:51 AM 06/29/2023 Rosaura Mustafa, DO 06/28/2023 6:19 AM 06/29/2023 Rosaura Mustafa, DO 06/28/2023 5:11 AM Length of Stay (Days): 2 GMLOS: 1.7 [facility] 06-30-2023 History of Presen t illness Narrative [...] Jacinto : 1965 AGE: 57 y.o. Room/Bed: [facility] A Admission Date: 06/28/2023 Visit Date: 06/30/2023 Reason for Endocrine Consult: dm2 Provider/Team Requesting Consult: Dr. Hill PCP: Jared Guzman Outpt Sweeper Operator Highways: Dr. Jesus spear endo ASSESSMENT: DM 2 [...] before lunch/285 units before dinner Lactobacillus Acid-Pectin (Acidophilus/Elbert Pectin) tablet 1 tablet, Oral, 2 times [...] found for: CHOLHDLRATIO No results found for: [id number] Lab Results Component Value Date TSH 2.356 11/26/2020 Radiology reportsas per the Radiologist Radiology: ECG 12 lead Result Date: 06/28/2023 Sinus tachycardia Nonspecific IVCD with LAD Left ventricular hypertrophy Minimal ST elevation, anterolateral leads Electronically Signed On 06-28-2023 5:20:13 [address]T [address] Rosaura Mustafa CT chest angiogram w and/or wo IV contrast Result Date: 06/28/2023 Patient Name: WILL JACINTO : 1965 [facility]#: [id number] Exam Date/Time: 06/28/2023 03:49 Procedure: CT CHEST [...] side (HCC) Anxiety disorder Bipolar 1 disorder ([facility]) Blood circulation, collateral Cellulitis chronic L lower leg COVID 12/08/2021 Depression Diabetes mellitus ([facility]) Type II, on insulin Disease of blood and blood forming organ Endometrial carcinoma ([facility]) 11/25/2020 Endometrial hyperplasia Foot ulcer ([facility]) Hx of blood clots RLE prior to amputation Hyperlipidemia Hypertension Lymphedema 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, RLE Morbidly obese ([facility]) Muscle weakness Osteomyelitis ([facility]) Osteomyelitis ([facility]) 2019 RLE Other lack of coordination Other specified soft tissue disorders Other symbolic dysfunctions Schizophrenia ([facility]) Sleep apnea no CPAP Venous insufficiency Past Surgical History: Past Surgical History: Procedure Laterality Date ABCESS DRAINAGE Right 09/09/2018 FOOT; [facility] COLONOSCOPY 09/19/[address] Hyde DILATION AND CURETTAGE OF UTERUS 05/18/2019 HYSTEROSCOPY 12/23/2021 LEG AMPUTATION THROUGH KNEE Right 06/16/2019 UPPER GASTROINTESTINAL ENDOSCOPY N/A 06/29/2023 Dr Sergio Sibley at [facility]; no specimens WISDOM TOOTH EXTRACTION Allergy(ies): No [...] Jacinto : 1965 AGE: 57 y.o. Room/Bed: [facility]257/-257 A Admission Date: 06/28/2023 Visit Date: 06/29/2023 Reason for Endocrine Consult: dm2 Provider/Team Requesting Consult: Dr. Hill PCP: Jared Guzman Outpt Sweeper Operator Highways: Dr. Lee [facility] endo ASSESSMENT: DM 2 poor control Cheat [...] doses to be determined [place] [facility] [place] SUBJECTIVE/HPI: CHIEF COMPLAINT: Chief [...] before lunch/285 units before dinner Lactobacillus Acid-Pectin (Acidophilus/Elbert Pectin) tablet 1 tablet, Oral, 2 times [...] found for: CHOLHDLRATIO No results found for: [id number] Lab Results Component Value Date TSH 2.356 [...] 06/28/2023 [facility] 1965 [id number] Exam Date/Time: 06/28/2023 03:08 Procedure: XR CHEST [...] ENDOSCOPY N/A 06/29/2023 Dr Sergio Sibley at [facility]; no specimens WISDOM TOOTH EXTRACTION Allergy(ies): No [...] 06/29/23 9:10 AM documented in this encounter [facility] 06-30-2023 Note Sinus rhythm Abnormal R-wave [...] include implement nonpharmacological interventions to manage anxiety. [facility] 06-29-2023 Note Formatting of this n ote is different from the original. Images from the original note were not included. Care Management Progress Note Chart reviewed. Patient remains on 2 east with chest pain. HX transgender F-M, Schizophrenia, Bipolar. R BKA, is wheelchair bound. Cardiology and GI following. Plan for EGD today. Wheelchair bound. DC plan: [facility], bed hold. No authorization needed. Discharge Milestones and Delays Expected Date/Time: 06/30/[address] discharge order Complete med reconciliation Case mgmt discharge readiness Clinical Stability Diagnsotic Workup Expected Discharge History Expected Date/Time Set By Reviewed At 06/30/2023 Nabil Hill, DO 06/28/2023 8:48 AM 06/29/2023 Herber Moore RN 06/28/2023 7:51 AM 06/29/2023 Rosaura Mustafa, DO 06/28/2023 6:19 AM 06/29/2023 Rosaura Mustafa DO 06/28/2023 5:11 AM Length of Stay (Days): 1 GMLOS: 1.7 [facility] [email or web address] 06-29-2023 Note Formatting of this n ote is different from the original. Images from the original note were not included. Care Management Progress Note Chart reviewed. Patient remains on with chest pain. HX transgender F-M, Schizophrenia, Bipolar. R BKA, is wheelchair bound. Cardiology and GI following. Plan for EGD today. Wheelchair bound. DC plan: [facility], bed hold. No authorization needed. Discharge Milestones and Delays Expected Date/Time: 06/30/[address] discharge order Complete med reconciliation Case mgmt discharge readiness Clinical Stability Diagnsotic Workup Expected Discharge History Expected Date/Time Set By Reviewed At 06/30/2023 Nabil Hill, DO 06/28/2023 8:48 AM 06/29/2023 Herber Moore RN 06/28/2023 7:51 AM 06/29/2023 Rosaura Mustafa DO 06/28/2023 6:19 AM 06/29/2023 Rosaura Mustafa DO 06/28/2023 5:11 AM Length of Stay (Days): 1 GMLOS: 1.7 [facility] [email or web address] 06-29-2023 Procedure anesthe ben Narrative Procedure Name [...] Melissa Sosa RN documented in this encounter [place] [id number] Note* Perioperative Nursing Note - Usman Ulrich RN - 06/29/2023 10:54 AM EDT Report called to Herber Hawk [id number] Note* Perioperative Nursing Note - Usman Ulrich RN - 06/29/2023 10:54 AM EDT Report called to Herber Hawk [id number] Note* Perioperative Nursing Note - Usman Ulrich RN - 06/29/2023 10:40 AM EDT POST ENDOSCOPY PROCEDURE TRANSFER REPORT Procedure completed: EGD Findings: WDL Specimens obtained: None Medications administered: 200mg Propofol per [employer] Additional Info: Adult diet regular; 3 carb choices (45gm/meal); see Dr Sibley' orders For additional Questions please call Endoscopy at [phone]. Thank You! [id number] Note* Perioperative Nursing Note - Usman Ulrich RN - 06/29/2023 10:40 AM EDT POST ENDOSCOPY PROCEDURE TRANSFER REPORT Procedure completed: EGD Findings: WDL Specimens obtained: None Medications administered: 200mg Propofol per [employer] Additional Info: Adult diet regular; 3 carb choices (45gm/meal); see Dr Sibley' orders For additional Questions please call Endoscopy at [phone]. Thank You! [id number] Note* Perioperative Nursing Note - Usman Ulrich RN - 06/29/2023 10:[address] Sibley in room talking to patient [id number] Note* Perioperative Nursing Note - Usman Ulrich RN - 06/29/2023 10:[address] Sibley in room talking to patient [id number] Note* Addendum Note - JEREMY Naranjo CRNA - 06/29/2023 10:21 AM EDT Addendum created 06/29/23 1021 by JEREMY Naranjo CRNA Attestation recorded in Intraprocedure, Intraprocedure Attestations filed [id number] Miscellaneous Notes* Addendum Note - JEREMY Naranjo CRNA - 06/29/2023 10:21 AM EDT Addendum created 06/29/23 1021 by JEREMY Naranjo CRNA Attestation recorded in Intraprocedure, Intraprocedure Attestations filed * Anesthesia Discharge Note - JEREMY Naranjo CRNA - 06/29/2023 10:20 AM EDT Patient: Maria Luisa Jacinto Procedure Summary Date: 06/29/23 Room / Location: [place] [address] / [facility] Gastroenterology Anesthesia Start: 953 Anesthesia Stop: 1018 [...] 21 06/29/23 1019 SpO2 99 % 06/29/23 101 Anesthesia Post Evaluation Patient location during evaluation: [...] criteria has been met. documented in this [facility]08-22-2023 Note* Anesthesia Discharge Note - JEREMY Naranjo CRNA - 06/29/2023 10:20 AM EDT Patient: Maria Luisa Jacinto Procedure Summary Date: 06/29/23 Room / Location: [place] [address] / [facility] Gastroenterology Anesthesia Start: 953 Anesthesia Stop: 1018 [...] once all PACU criteria has been met. [id number] Anesthesiology Postoperative evaluation and management note* Anesthesia Postprocedure Evaluation - JEREMY Naranjo CRNA - 06/29/2023 10:20 AM EDT Patient: Maria Luisa Jacinto Procedure Summary Date: 06/29/23 Room / Location: [place] [address] / [facility] Gastroenterology Anesthesia Start: 953 Anesthesia Stop: 1018 [...] opportunity for questions and acknowledgement of understanding. [facility] [id number] Surgical operation note* Anesthesia Postprocedure Evaluation - JEREMY Naranjo CRNA - 06/29/2023 10:20 AM EDT Patient: Maria Luisa Jacinto Procedure Summary Date: 06/29/23 Room / Location: [place] [address] / [facility] Gastroenterology Anesthesia Start: 953 Anesthesia Stop: 1018 [...] Date/Time: 06/29/23 0900 Procedure: EGD DIAGNOSTIC Location: [facility] / [facility] Gastroenterology Providers: Sergio Sibley, DO Relevant Problems Cardio (+) Hyperlipidemia (+) Hypertension (+) 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 (HCC) Endo (+) Type 2 diabetes mellitus with hyperglycemia, with long-term current use of insulin (CMS/HCC) (HCC) (+) Uncontrolled type 2 diabetes mellitus with complication Other (+) Chronic osteomyelitis ([facility]/HCC) ([facility]) (+) Endometrial carcinoma ([facility]) Past Medical History: Past Medical History: No date: Abnormal uterine bleeding (AUB) Comment: SCHEDULED FOR THE SURGERY ON 05/16/2019 No date: Above knee amputation of right lower extremity ([facility]) No date: Acquired absence of other toe(s), unspecified side ([facility]) No date: Anxiety disorder No date: Bipolar 1 disorder ([facility]) No date: Blood circulation, collateral No date: Cellulitis Comment: chronic L lower leg 12/08/2021: COVID No date: Depression No date: Diabetes mellitus ([facility]) Comment: Type II, on insulin No date: Disease of blood and blood forming organ 11/25/2020: Endometrial carcinoma ([facility]) No date: Endometrial hyperplasia No date: Foot ulcer ([facility]) No date: Hx of blood clots Comment: RLE prior to amputation No date: Hyperlipidemia No date: Hypertension No date: Lymphedema No date: 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, RLE No date: Morbidly obese ([facility]) No date: Muscle weakness No date: Osteomyelitis ([facility]) 2019: Osteomyelitis ([facility]) Comment: RLE No date: Other lack of coordination No date: Other specified soft tissue disorders No date: Other symbolic dysfunctions No date: Schizophrenia (HCC) No date: Sleep apnea Comment: no CPAP [...] deviation no longer present documented in this [facility]08-22-2023 Nurse Note* Usman Ulrich RN - 06/29/2023 10:18 AM EDT No specimens [facility] [id number] Nurse Note* Usman Ulrich RN - 06/29/2023 10:18 AM EDT No specimens documented in this [facility]08-22-2023 Anesthesiology Preoperative evaluation and management note* Anesthesia Preprocedure Evaluation - JEREMY Naranjo CRNA - 06/29/2023 9:41 AM EDT Patient: Maria Luisa Jacinto Procedure Information Date/Time: 06/29/23 0900 Procedure: EGD DIAGNOSTIC Location: [place] [address] / [facility] Gastroenterology Providers: Sergio Sibley, DO Relevant Problems [...] No date: Depression No date: Diabetes mellitus ([facility]) Comment: Type II, on insulin No date: Disease of blood and blood forming organ 11/25/2020: Endometrial carcinoma ([facility]) No date: Endometrial hyperplasia No date: Foot ulcer ([facility]) No date: Hx of blood clots Comment: RLE prior to amputation No date: Hyperlipidemia No date: Hypertension No date: Lymphedema No date: 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, RLE No date: Morbidly obese ([facility]) No date: Muscle weakness No date: Osteomyelitis ([facility]) 2019: Osteomyelitis ([facility]) Comment: RLE No date: Other lack of coordination No date: Other specified soft tissue disorders No date: Other symbolic dysfunctions No date: Schizophrenia ([facility]) No date: Sleep apnea [...] ST (T wave) deviation no longer present [facility] HospitalOjfrcc06-79-1478 Note* Op Note - Sergio Sibley DO - 06/29/2023 8:19 AM EDT [facility] Name: Will Jacinto Procedure Date: 06/29/2023 8:19 AM Gender: Female Date of : 1965 Age: 57 Admit Type: Inpatient Note Status: Finalized Endoscopist: Sergio Sibley DO, [id number] Procedure: Upper GI endoscopy Indications: Chest pain [...] immediate complications. Procedure Code(s): --- Professional --- 63914, Esophagogastroduodenoscopy, flexible, transoral; diagnostic, including collection of specimen(s) by brushing or washing, when performed (separate procedure) --- Technical --- 51190, Esophagogastroduodenoscopy, flexible, transoral; diagnostic, including collection of specimen(s) by brushing or washing, when performed (separate procedure) Diagnosis Code(s): --- Professional --- R07.89, Other chest pain R11.2, Nausea with vomiting, unspecified --- Technical --- R07.89, Other chest pain R11.2, Nausea with vomiting, unspecified CPT copyright 2021 [employer]. All rights reserved. The codes documented in this report are preliminary and upon leather piece inspector review may be revised to meet current compliance requirements. Attending Participation: I personally performed the entire procedure. Sergio Sibley DO 06/29/2023 10:29:14 AM This report has been signed electronically. Number of Addenda: 0 Note Initiated On: 06/29/2023 8:19 AM [facility]08-22-2023 Note* Op Note - Sergio Sibley DO - 06/29/2023 8:19 AM EDT [facility] Patient Name: Will Jacinto Procedure Date: 06/29/2023 8:19 AM Gender: Female Date of : 1965 Age: 57 Admit Type: Inpatient Note Status: Finalized Endoscopist: Sergio Sibley DO, [id number] Procedure: Upper GI endoscopy Indications: Chest pain [...] immediate complications. Procedure Code(s): --- Professional --- 97764, Esophagogastroduodenoscopy, flexible, transoral; diagnostic, including collection of specimen(s) by brushing or washing, when performed (separate procedure) --- Technical --- 41454, Esophagogastroduodenoscopy, flexible, transoral; diagnostic, including collection of specimen(s) by brushing or washing, when performed (separate procedure) Diagnosis Code(s): --- Professional --- R07.89, Other chest pain R11.2, Nausea with vomiting, unspecified --- Technical --- R07.89, Other chest pain R11.2, Nausea with vomiting, unspecified CPT copyright 2021 [employer]. All rights reserved. The codes documented in this report are preliminary and upon leather piece inspector review may be revised to meet current compliance requirements. Attending Participation: I personally performed the entire procedure. Sergio Sibley DO 06/29/2023 10:29:14 AM This report has been signed electronically. Number of Addenda: 0 Note Initiated On: 06/29/2023 8:19 AM [facility]08-21-2023 Consult note* Sergio Sibley DO - [...] side (HCC) Anxiety disorder Bipolar 1 disorder ([facility]) Blood circulation, collateral Cellulitis chronic L lower leg COVID 12/08/2021 Depression Diabetes mellitus ([facility]) Type II, on insulin Disease of blood and blood forming organ Endometrial carcinoma ([facility]) 11/25/2020 Endometrial hyperplasia Foot ulcer ([facility]) Hx of blood clots RLE prior to amputation Hyperlipidemia Hypertension Lymphedema MDRO (multiple drug resistant organisms) resistance hx CRE and MRSA in 2018, RLE Morbidly obese ([facility]) Muscle weakness Osteomyelitis ([facility]) Osteomyelitis ([facility]) 2019 RLE Other lack of coordination Other specified soft tissue disorders Other symbolic dysfunctions Schizophrenia ([facility]) Sleep apnea no CPAP [...] before lunch/285 units before dinner Lactobacillus Acid-Pectin (Acidophilus/Elbert Pectin) tablet 1 tablet, Oral, 2 times [...] by Sergio Sibley DO 06/28/2023 11:59 AM [place] Phone: [phone]) 174-794608-21-2023 Consult note* Sergio Sibley DO - 06/28/2023 [...] side (HCC) Anxiety disorder Bipolar 1 disorder ([facility]) Blood circulation, collateral Cellulitis chronic L lower leg COVID 12/08/2021 Depression Diabetes mellitus ([facility]) Type II, on insulin Disease of blood and blood forming organ Endometrial carcinoma ([facility]) 11/25/2020 Endometrial hyperplasia Foot ulcer ([facility]) Hx of blood clots RLE prior to amputation Hyperlipidemia Hypertension Lymphedema MDRO (multiple drug resistant organisms) resistance hx CRE and MRSA in 2018, RLE Morbidly obese ([facility]) Muscle weakness Osteomyelitis ([facility]) Osteomyelitis ([facility]) 2019 RLE Other lack of coordination Other specified soft tissue disorders Other symbolic dysfunctions Schizophrenia ([facility]) Sleep apnea no CPAP [...] before lunch/285 units before dinner Lactobacillus Acid-Pectin (Acidophilus/Elbert Pectin) tablet 1 tablet, Oral, 2 times [...] Jacinto : 1965 AGE: 57 y.o. Room[facility]: [facility] B Admission Date: 06/28/2023 Visit Date: 06/28/2023 Reason for Endocrine Consult: dm2 Provider/Team Requesting Consult: Dr. Hill PCP: Jared Guzman Outpt Sweeper Operator Highways: Dr. Lee [facility] endo ASSESSMENT: DM 2 poor control Cheat [...] 10%-15% lower than serum/plasma values. (CLIA ID [id number]) 12/23/2021 07:28 AM 107 (H) 70 - 100 mg/dL Final Comment: Test performed by glucose meter. Results may be 10%-15% lower than serum/plasma values. (CLIA ID [id number]) 11/28/2020 04:54 PM 111 (H) 70 - 100 mg/dL Final Comment: Test performed by glucose meter. Results may be 10%-15% lower than serum/plasma values. (CLIA ID [id number]) 11/28/2020 10:18 AM 166 (H) 70 - 100 mg/dL Final Comment: Test performed by glucose meter. Results may be 10%-15% lower than serum/plasma values. (CLIA ID [id number]) 11/28/2020 07:57 AM 215 (H) 70 - 100 mg/dL Final Comment: Test performed by glucose meter. Results may be 10%-15% lower than serum/plasma values. (CLIA ID [id number]) 11/27/2020 09:08 PM 91 70 - 100 mg/dL Final Comment: Test performed by glucose meter. Results may be 10%-15% lower than serum/plasma values. (CLIA ID [id number]) Review of Systems Constitutional: Positive for appetite [...] before lunch/285 units before dinner Lactobacillus Acid-Pectin (Acidophilus/Elbert Pectin) tablet 1 tablet, Oral, 2 times [...] found for: CHOLHDLRATIO No results found for: [id number] Lab Results Component Value Date TSH 2.356 11/26/2020 Radiology reportsas per the Radiologist Radiology: ECG 12 lead Result Date: 06/28/2023 Sinus tachycardia Nonspecific IVCD with LAD Left ventricular hypertrophy Minimal ST elevation, anterolateral leads Electronically Signed On 06-28-2023 5:20:13 EDT by Rosaura Mustafa CT chest angiogram w and/or wo IV contrast Result Date: 06/28/2023 [facility] 1965 [id number] Exam Date/Time: 06/28/2023 03:49 Procedure: CT CHEST [...] 06/28/2023 Patient Name: [facility] 1965 [id number] Exam Date/Time: 06/28/2023 03:08 Procedure: XR CHEST [...] side (HCC) Anxiety disorder Bipolar 1 disorder ([facility]) Blood circulation, collateral Cellulitis chronic L lower leg COVID 12/08/2021 Depression Diabetes mellitus ([facility]) Type II, on insulin Disease of blood and blood forming organ Endometrial carcinoma ([facility]) 11/25/2020 Endometrial hyperplasia Foot ulcer ([facility]) Hx of blood clots RLE prior to amputation Hyperlipidemia Hypertension Lymphedema MDRO (multiple drug resistant organisms) resistance hx CRE and MRSA in 2018, RLE Morbidly obese ([facility]) Muscle weakness Osteomyelitis ([facility]) Osteomyelitis ([facility]) 2019 RLE Other lack of coordination Other specified soft tissue disorders Other symbolic dysfunctions Schizophrenia ([facility]) Sleep apnea no CPAP [...] AM EDTAssociated Order(s): IP CONSULT TO CARDIOLOGY [facility] CARDIOLOGY CONSULTATION Patient Name: Will Jacinto [...] (AUB), Above knee amputation of right lowerextremity ([facility]), Acquired absence of other toe(s), unspecified side ([facility]), Anxiety disorder, Bipolar 1 disorder ([facility]), Blood circulation, collateral, Cellulitis, COVID (12/08/2021), Depression, Diabetes mellitus ([facility]), Disease of blood and blood forming organ, Endometrial carcinoma ([facility]) (11/25/2020), Endometrial hyperplasia, Foot ulcer ([facility]), blood clots, Hyperlipidemia, Hypertension, Lymphedema,MDRO (multiple drug resistant organisms) resistance, Morbidly obese ([facility]), Muscle weakness, Osteomyelitis ([facility]), Osteomyelitis ([facility]) (2019), Other lack of coordination, Other specified soft tissue disorders, Other symbolic dysfunctions, Schizophrenia ([facility]), Sleep apnea, and Venous insufficiency. He has no past medical history of Arthritis, Asthma, CAD (coronary artery disease), Cerebral arteryocclusion with cerebral infarction ([facility]), CHF (congestive heart failure) ([facility]) ([facility]), Chronic kidney disease, COPD (chronic obstructive pulmonary disease) ([facility]), GERD (gastroesophageal reflux disease), Hemodialysis patient ([facility]) ([facility]), History of blood transfusion, Liver disease, Movement disorder, Neuromuscular disorder ([facility] [facility]), Other disorders of kidney and ureter in diseases classified elsewhere, Pneumonia, Seizures ([facility]), or Thyroid disease. SurgicalHistory: has a past surgical history that includes Saffell tooth extraction; Dilation and curettage of uterus(05/18/2019); [...] skin 1 (one) time per week. Historical ProviderMD FLUoxetine (PROzac) 40 MG capsule Take 40 [...] units before dinner Historical ProviderMD Lactobacillus Acid-Pectin (Acidophilus/Elbert Pectin) tablet Take 1 tablet by mouth [...] MG tablet Every 24 hours. 06/28/23 Historical Provider, Scheduled medications: acidophilus lactobacillus, 1 capsule, Oral, [...] acute infiltrate or effusion. documented in this [facility]08-21-2023 Consult note* Geronimo Lee MD - 06/28/2023 10:45 AM EDTAssociated Order(s): IP CONSULT TO ENDOCRINOLOGY Department of Internal Medicine Division of Endocrinology, Diabetes, & Metabolism Endocrinology Note Patient Name: Will Jacinto : 1965 AGE: 57 y.o. Room/Bed: B2-249/B2-249 B Admission Date: 06/28/2023 Visit Date: 06/28/2023 Reason for Endocrine Consult: dm2 Provider/Team Requesting Consult: Dr. iHll PCP: Jared Guzman Outpt Sweeper Operator Highways: Dr. Lee [facility] endo ASSESSMENT: DM 2 poor control Cheat [...] 10%-15% lower than serum/plasma values. (CLIA ID [id number]) 12/23/2021 07:28 AM 107 (H) 70 - 100 mg/dL Final Comment: Test performed by glucose meter. Results may be 10%-15% lower than serum/plasma values. (CLIA ID [id number]) 11/28/2020 04:54 PM 111 (H) 70 - 100 mg/dL Final Comment: Test performed by glucose meter. Results may be 10%-15% lower than serum/plasma values. (CLIA ID [id number]) 11/28/2020 10:18 AM 166 (H) 70 - 100 mg/dL Final Comment: Test performed by glucose meter. Results may be 10%-15% lower than serum/plasma values. (CLIA ID [id number]) 11/28/2020 07:57 AM 215 (H) 70 - 100 mg/dL Final Comment: Test performed by glucose meter. Results may be 10%-15% lower than serum/plasma values. (CLIA ID [id number]) 11/27/2020 09:08 PM 91 70 - 100 mg/dL Final Comment: Test performed by glucose meter. Results may be 10%-15% lower than serum/plasma values. (CLIA ID [id number]) Review of Systems Constitutional: Positive for appetite [...] before lunch/285 units before dinner Lactobacillus Acid-Pectin (Acidophilus/Elbert Pectin) tablet 1 tablet, Oral, 2 times [...] found for: CHOLHDLRATIO No results found for: [id number] Lab Results Component Value Date TSH 2.356 [...] 06/28/2023 [facility] 1965 [id number] Exam Date/Time: 06/28/2023 03:08 Procedure: XR CHEST [...] Acquired absence of other toe(s), unspecified side ([facility]) Anxiety disorder Bipolar 1 disorder ([facility]) Blood circulation, collateral Cellulitis chronic L lower leg COVID 12/08/2021 Depression Diabetes mellitus ([facility]) Type II, on insulin Disease of blood and blood forming organ Endometrial carcinoma ([facility]) 11/25/2020 Endometrial hyperplasia Foot ulcer ([facility]) Hx of blood clots RLE prior to amputation Hyperlipidemia Hypertension Lymphedema MDRO (multiple drug 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 [place] Phone: 1([phone]) 319-593808-21-2023 Note* Care Coordination - Herber Moore RN - 06/28/2023 10:12 AM EDT Care Managment Initial Assessment Date: 06/28/2023 Patient Name: Will Jacinto : 1965 Patient Information Source of Information: Patient Cognition/Language: WFL - Within Functional Limits Permission given to speak with patient telephone services sales representative/caregiver as indicated: Yes (Jovana Quesada [facility]) [phone]) Confirmation of Payer with patient/family: Yes Payer Name: [facility] Dual : No Confirmation of Primary Care Physician: Confirmed PCP Name: Jared Guzman Seen in last 2 years?: Yes Primary Caregiver: Other (Comment) ([facility] staff) If assistance needed, confirmed caregiver ready, willing and able to care for patient at discharge:Yes Confirmed with: Patient states staff from [facility] Living Arrangements Current Residence: ([facility]) Number of Floors Number of Entry Steps: Bed/Bath Levels: Facility: [facility] Facility Name: [facility] Plan to Return: Yes Lives with: Support Systems: Family members Activities of Daily Living Ambulation: Total Care (wheelchair) Bathing/Dressing: Total Care Elimination/Continence/Toileting: Assistance Feeding: Independent Who Assists with Activities of Daily Living: Staff from [facility] Instrumental Activities of Daily Living Prescription Coverage: Yes Pharmacy Used: Pharmacy through [facility] Medication Management: Assistance Type: Dose packaging system Who assists with medication securing and setup?: ECF staff Transportation/Shopping: Assistance Provider Transportation Mode: Needs Assistance with Transportation at Discharge: No Meal Preparation: Assistance Provider Meal Prep Assistance Provider Name: ECF staff Laundry/Cleaning: Assistance Provider Laundry/Cleaning Assistance Provider Name: EC staff Finances/Bill Paying: Assistance Provider Finances/Bill Payer Assistance Provider Name: Family Communication: Independent Types of Care Services/Equipment Utilized Care Services: Dialysis Type: NA Durable Medical Equipment: Wheelchair (standard or power) Patient's Goal/Discharge Plan Patient expects to be discharged to: Back to [facility]. Discharge Planning Actions: Continue to follow Patient's [...] R bka, is wheelchair bound. Lives at [facility] and plans to return. Cardiology consulted. Task sent to [facility] via [facility] to place return referral to [facility]. TCC will continue to follow. Herber Moore RN [facility] [id number] Note* Care Coordination - Herber Moore RN - 06/28/2023 10:12 AM EDT Care Managment Initial Assessment Date: 06/28/2023 Patient Name: Will Jacinto : 1965 Patient Information Source of Information: Patient Cognition/Language: WFL - Within Functional Limits Permission given to speak with patient telephone services sales representative/caregiver as indicated: Yes (Jovana Quesada ([facility]) [phone]) Confirmation of Payer with patient/family: Yes Payer Name: [facility] Dual [place]: No Confirmation of Primary Care Physician: Confirmed PCP Name: Jared Guzman Seen in last 2 years?: Yes Primary Caregiver: Other (Comment) ([facility] staff) If assistance needed, confirmed caregiver ready, willing and able to care for patient at discharge:Yes Confirmed with: Patient states staff from [facility] Living Arrangements Current Residence: ([facility]) Number of Floors Number of Entry Steps: Bed/Bath Levels: Facility: [facility] Facility Name: [facility] Plan to Return: Yes Lives with: Support Systems: Family members Activities of Daily Living Ambulation: Total Care (wheelchair) Bathing/Dressing: Total Care Elimination/Continence/Toileting: Assistance Feeding: Independent Who Assists with Activities of Daily Living: Staff from [facility] Instrumental Activities of Daily Living Prescription Coverage: Yes Pharmacy Used: Pharmacy through [facility] Medication Management: Assistance Type: Dose packaging system Who assists with medication securing and setup?: F staff Transportation/Shopping: Assistance Provider Transportation Mode: Needs Assistance with Transportation at Discharge: No Meal Preparation: Assistance Provider Meal Prep Assistance Provider Name: [facility] staff Laundry/Cleaning: Assistance Provider Laundry/Cleaning Assistance Provider Name: [facility] staff Finances/Bill Paying: Assistance Provider Finances/Bill Payer Assistance Provider Name: Family Communication: Independent Types of Care Services/Equipment Utilized Care Services: Dialysis Type: NA Durable Medical Equipment: Wheelchair (standard or power) Patient's Goal/Discharge Plan Patient expects to be discharged to: Back to [facility]. Discharge Planning Actions: Continue to follow Patient's [...] R bka, is wheelchair bound. Lives at [facility] and plans to return. Cardiology consulted. Task sent to [facility] return referral to [facility]. TCC will continue to follow. Herber Moore RN [facility] [id number] Consult note* Supriya Baeza MD - 06/28/2023 9:16 AM EDT Associated Order(s): IP CONSULT TO CARDIOLOGY [facility] CARDIOLOGY CONSULTATION Patient Name: Will Jacinto [...] 5:20:13 EDT by Rosaura Mustafa Signed by: Rosauar Mustafa DO on 06/28/2023 5:20 AM 09/17/20 Echo attempt: CONCLUSIONS SUMMARY: Procedure narrative: Image quality was uninterpretable. The study was technically limited due to poor acoustic window availability, body habitus, off axis, and supine position. Past Medical History: has a past medical history of Abnormal uterine bleeding (AUB), Above knee amputation of right lowerextremity ([facility]), Acquired absence of other toe(s), unspecified side ([facility]), Anxiety disorder, Bipolar 1 disorder ([facility]), Blood circulation, collateral, Cellulitis, COVID (12/08/2021), Depression, Diabetes mellitus ([facility]), Disease of blood and blood forming organ, Endometrial carcinoma ([facility]) (11/25/2020), Endometrial hyperplasia, Foot ulcer ([facility]), blood clots, Hyperlipidemia, Hypertension, Lymphedema,MDRO (multiple drug resistant organisms) resistance, Morbidly obese ([facility]), Muscle weakness, Osteomyelitis ([facility]), Osteomyelitis ([facility]) (2019), Other lack of coordination, Other specified soft tissue disorders, Other symbolic dysfunctions, Schizophrenia ([facility]), Sleep apnea, and Venous insufficiency. He has no past medical history of Arthritis, Asthma, CAD (coronary artery disease), Cerebral arteryocclusion with cerebral infarction ([facility]), CHF (congestive heart failure) ([facility]) ([facility]), Chronic kidney disease, COPD (chronic obstructive pulmonary disease) ([facility]), GERD (gastroesophageal reflux disease), Hemodialysis patient ([facility]) ([facility]), History of blood transfusion, Liver disease, Movement disorder, Neuromuscular disorder ([facility]), Other disorders of kidney and ureter in diseases classified elsewhere, Pneumonia, Seizures ([facility]), or Thyroid disease. SurgicalHistory: has a past surgical history that includes Saffell tooth extraction; Dilation and curettage of uterus(05/18/2019); [...] units before dinner Historical Provider, Lactobacillus Acid-Pectin (Acidophilus/Elbert Pectin) tablet Take 1 tablet by mouth [...] MG tablet Every 24 hours. 06/28/23 Historical Provider, Scheduled medications: acidophilus lactobacillus, 1 capsule, Oral, [...] lung volumes. No acute infiltrate or effusion. [facility] Work Phone: [phone]) [phone] History and physical note* Nabil Hill DO [...] Acquired absence of other toe(s), unspecified side ([facility]) Anxiety disorder Bipolar 1 disorder ([facility]) Blood circulation, collateral Cellulitis chronic L lower leg COVID 12/08/2021 Depression Diabetes mellitus ([facility]) Type II, on insulin Disease of blood and blood forming organ Endometrial carcinoma ([facility]) 11/25/2020 Endometrial hyperplasia Foot ulcer ([facility]) Hx of blood clots RLE prior to amputation Hyperlipidemia Hypertension Lymphedema MDRO (multiple drug resistant organisms) resistance hx CRE and MRSA in 2018, RLE Morbidly obese ([facility]) Muscle weakness Osteomyelitis ([facility]) Osteomyelitis ([facility]) 2019 RLE Other lack of coordination Other specified soft tissue disorders Other symbolic dysfunctions Schizophrenia ([facility]) Sleep apnea no CPAP [...] before lunch/285 units before dinner Lactobacillus Acid-Pectin (Acidophilus/Elbert Pectin) tablet Take 1 tablet by mouth [...] trops NABIL HILL DO 06/28/23 8:42 AM [place] [id number] History and physical note* Nabil Hill DO [...] Acquired absence of other toe(s), unspecified side ([facility]) Anxiety disorder Bipolar 1 disorder ([facility]) Blood circulation, collateral Cellulitis chronic L lower leg COVID 12/08/2021 Depression Diabetes mellitus ([facility]) Type II, on insulin Disease of blood and blood forming organ Endometrial carcinoma ([facility]) 11/25/2020 Endometrial hyperplasia Foot ulcer ([facility]) Hx of blood clots RLE prior to amputation Hyperlipidemia Hypertension Lymphedema MDRO (multiple drug resistant organisms) resistance hx CRE and MRSA in 2018, RLE Morbidly obese ([facility]) Muscle weakness Osteomyelitis ([facility]) Osteomyelitis ([facility]) 2019 RLE Other lack of coordination Other specified soft tissue disorders Other symbolic dysfunctions Schizophrenia ([facility]) Sleep apnea no CPAP [...] before lunch/285 units before dinner Lactobacillus Acid-Pectin (Acidophilus/Elbert Pectin) tablet Take 1 tablet by mouth [...] (HCC) Left leg cellulitis Diabetic foot infection ([facility]) S/P AKA (above knee amputation) unilateral, right ([facility]) Class 3 severe obesity due to excess calories with serious comorbidity and body mass index (BMI) of60.0 to 69.9 in adult ([facility]) Chest pain Chest pain Nausea and vomiting DM 2 Morbid obesity HPL HTN Plan Admit to tele Consult cardio Consult endo Consult gi Clears and ivf for now Serial trops NABIL HILL DO 06/28/23 8:42 AM documented in this [facility]08-21-2023 Note* Significant Event - Ramsey Mc MD - 06/28/2023 7:59 AM EDT Patient was referred to the [facility] service for admission but his primary care physician is covered by Dr. Hill. Dr. Hill will see and admit. Attending changed to Dr. Hill. [facility] Work Phone: [phone]) [phone] Note* Significant Event - Ramsey Mc MD - 06/28/2023 7:59 AM EDT Patient was referred to the [facility] service for admission but his primary care physician is covered by Dr. Hill. Dr. Hill will see and admit. Attending changed to Dr. Hill. [place] Phone: [phone] NoteSuboptimal opacification of the pulmonary arteries. This [...] Electronically Signed Date/Time: 06/28/2023 4:37 AM EDT [facility] [id number] Emergency department Note* Dalila Mendes RN - 06/28/2023 2:14 AM EDT Bed: 33 Expected date: Expected time: Means of arrival: Comments: EMS Dalila Mendes RN 06/28/[address] [facility] [id number] Emergency department Note* Rosaura Mustafa DO - [...] side (HCC) Anxiety disorder Bipolar 1 disorder ([facility]) Blood circulation, collateral Cellulitis chronic L lower leg COVID 12/08/2021 Depression Diabetes mellitus ([facility]) Type II, on insulin Disease of blood and blood forming organ Endometrial carcinoma ([facility]) 11/25/2020 Endometrial hyperplasia Foot ulcer ([facility]) Hx of blood clots RLE prior to amputation Hyperlipidemia Hypertension Lymphedema MDRO (multiple drug resistant organisms) resistance hx CRE and MRSA in 2018, RLE Morbidly obese ([facility]) Muscle weakness Osteomyelitis (HCC) Osteomyelitis (HCC) 2019 RLE Other lack of coordination Other specified soft tissue disorders Other symbolic dysfunctions Schizophrenia ([facility]) Sleep apnea no CPAP [...] Pt presents to ED via EMS from [facility]. Pt is experiencing chest pain that started before midnight. Pt has also been vomiting today. Pt denies hx of [place]. * Dalila Mendes RN - 06/28/2023 2:14 AM EDT Bed: 33 Expected date: Expected time: Means of arrival: Comments: EMS Dalila Mendes RN 06/28/23 0214 documented in this [facility]08-21-2023 Emergency department Triage note* Melissa Sosa RN - 06/28/2023 2:14 AM EDT Pt presents to ED via EMS from [facility]. Pt is experiencing chest pain that started before midnight. Pt has also been vomiting today. Pt denies hx of [place]. [facility] [id number] Physician Emergency department Note* Rosaura Mustafa DO [...] Alcohol use: No Drug use: Never SCREENINGS [place] Coma Scale Best Eye Response: Spontaneous Best [...] Emergency Medicine Provider Rosaura Mustafa DO 06/28/23522 [facility] [id number] Telephone encounter Note* Telephone Encounter - Radha Busby MA - 06/23/2023 8:22 AM EDT [facility] and spoke with nurse minesh. I relayed the message below and she verbalized understanding. [place] [id number] Miscellaneous Notes* Telephone Encounter - Radha Busby MA - 06/23/2023 8:22 AM EDT [facility] and spoke with nurse minesh. I relayed the message below and she verbalized understanding. * Telephone Encounter - Geronimo Lee MD - 06/22/2023 4:43 PM EDT Keep doses the same for now thank you * Telephone Encounter - Jackson Pratt - 06/22/2023 3:35 PM EDT Images from the original note were not included. Patient BGL documented [facility] HospitalEmagvz02-46-6901 Telephone encounter Note* Telephone Encounter - Geronimo Lee MD - 06/22/2023 4:43 PM EDT Keep doses the same for now [facility] you [facility] Phone: [phone] Telephone encounter Note* Telephone Encounter - Jackson Pratt - 06/22/2023 3:35 PM EDT Images from the original note were not included. Patient BGL [facility] [id number] Telephone encounter Note* Telephone Encounter - Idalmis Rodriguez MA - 05/18/2023 11:32 AM EDT Called patient and left message stating there is no changes at this time. [facility] [id number] Miscellaneous Notes* Telephone Encounter - Idalmis Rodriguez MA - 05/18/2023 11:32 AM EDT Called patient and left message stating there is no changes at this time. * Telephone Encounter - Geronimo Lee MD - 05/17/2023 4:48 PM EDT Keep doses the same increased trulicity already * Telephone Encounter - Jackson Partt - 05/17/2023 3:35 PM EDT Images from the original note were not included. Patient BGL documented in this encounterSAd[facility] HospitalVntsrr36-82-9459 Telephone encounter Note* Telephone Encounter - Geronimo Lee MD - 05/17/2023 4:48 PM EDT Keep doses the same increased trulicity already [facility] [email or web address] [facility] Phone: [phone] Telephone encounter Note* Telephone Encounter - Jackson Pratt - 05/17/2023 3:35 PM EDT Images from the original note were not included. Patient BGL [facility] HospitalMszhqc02-35-3803 Note* Addendum Note - Radha Busby MA - 05/07/2023 10:05 AM EDTAddended by: RADHA BUSBY on: 05/07/2023 10:05 AM Modules accepted: Orders [facility] [id number] Miscellaneous Notes* Addendum Note - Radha Busby MA - 05/07/2023 10:05 AM EDTAddended by: RADHA BUSBY on: 05/07/2023 10:05 AM Modules accepted: Orders * Telephone Encounter - Radha Busby MA - 05/07/2023 10:04 AM EDT Called [facility] and spoke with nurse don. I [...] not included. Patient BGL documented in this [facility]06-30-2023 Telephone encounter Note* Telephone Encounter - Radha Busby MA - 05/07/2023 10:04 AM EDT Called [facility] and spoke with nurse ochoa. I relayed the message below and she verbalized understanding. Med req updated. [facility] HospitalKxlwpg93-57-7303 Telephone encounter Note* Telephone Encounter - Geronimo Lee MD - 05/06/2023 11:19 AM EDT Please increase trulicity to 4.5 mg weekly thank you [facility] [email or web address] Work Phone: [phone] Miscellaneous Notes* Telephone Encounter - Geronimo Lee [...] not included. Patient BGL documented in this encounterSAdams County [id number] Telephone encounter Note* Telephone Encounter - Radha Busby MA - 05/06/2023 10:18 AM EDT Patient is currently taking Humulin R u500 (285 units before breakfast/260 units before lunch/285 units before dinner) Trulicity 3[address] [facility] HospitalSclofd63-04-1078 Telephone encounter Note* Telephone Encounter - Geronimo Lee MD - 05/05/2023 4:27 PM EDT Please confirm current insulin doses thank you [facility] [id number] Telephone encounter Note* Telephone Encounter - Jackson Pratt - 05/05/2023 3:27 PM EDT Images from the original note were not included. Patient BGL [facility] [id number] Hospital Discharge instructions* Discharge Instructions* Jocelyn Santos MD - 03/08/2023 3:59 PM EDT Return to the ED if you cannot tolerate fluids with the Reglan. * Attachments The following attachments cannot be sent through Care Everywhere. * Gastroparesis (Delayed Gastric Emptying) ([place]) documented in this [facility]05-01-2023 Emergency department Note* Joellen Palmer RN - 03/08/2023 12:50 PM EDT Bed: 18 Expected date: Expected time: Means of arrival: Comments: Physicians Joellen Palmer RN 03/08/[address] [facility] [id number] Emergency department Note* Karlos Osborn DO - 03/08/2023 12:50 PM EDT Emergency Department Encounter [facility] ED Patient: Will Jacinto : 1965 Date [...] of a CMP which was relatively unremarkable, xcajz-yc-bfpc glucose was 167, CBC was relatively unremarkable. [...] for clarification.) Karlos Osborn DO Acute Care [facility] Karlos Osbonr DO 03/08/23 1623 * Joellen Palmer RN - 03/08/2023 12:50 PM EDT Bed: 18 Expected date: Expected time: Means of arrival: Comments: Physicians Joellen Palmer RN 03/08/23 1250 documented in this [facility]05-01-2023 Physician Emergency department Note* Karlos Osborn DO - 03/08/2023 12:50 PM EDT Emergency Department Encounter [facility] ED Patient: Will Jacinto : 1965 Date [...] of a CMP which was relatively unremarkable, viker-wz-okmq glucose was 167, CBC was relatively unremarkable. [...] [employer] Karlos Osborn DO 03/08/23 1623 [facility] Phone: [phone] Telephone encounter Note* Telephone Encounter - Radha Busby MA - 03/01/2023 9:01 AM EDT Patient received message. [facility] [id number] Miscellaneous Notes* Telephone Encounter - Radha Busby [...] not included. Patient BGL documented in this encounterSAdams County [id number] Telephone encounter Note* Telephone Encounter - Radha Busby MA - 02/26/2023 1:39 PM EDT Called patient and left message to contact office. [place] [id number] Miscellaneous Notes* Telephone Encounter - Radha Busby [...] not included. Patient BGL documented in this encounterSAdams County [id number] Telephone encounter Note* Telephone Encounter - Geronimo Lee MD - 02/26/2023 11:18 AM EDT Increase morning u500 insulin dose by 25 units please thank you [place] [id number] Telephone encounter Note* Telephone Encounter - Jackson Prtat - 02/25/2023 3:35 PM EDT Images from the original note were not included. Patient BGL [place] [id number] History of Present illness Narrative* Geronimo Lee MD - 02/09/2023 9:20 AM EDT . ENDOCRINOLOGY [place] [address] [facility] [place] [address] Dept: [phone] Dept Visit type: Established patient Reason for Visit: Follow-up (DM2) Assessment and Plan 1. Type 2 diabetes mellitus with hyperglycemia, with long-term current use of insulin ([facility]) ([facility]) 2. Mixed hyperlipidemia 3. [...] underthe skin 3 times daily. Lactobacillus Acid-Pectin (Acidophilus/Elbert Pectin) tablet Take 1 tablet by mouth [...] 1.25 mg/dL 0.73 EGFR >60 mL/min >90.0 [facility] ArcMail EGFR IF NONAFRICAN SCOTTISH >60 mL/min >90.0 GLUCOSE 70 - 100 mg/dL 119 (H) CALCIUM 8.4 - 10.4 mg/dL 9.4 (H): Data is abnormally high Latest Reference Range & Units 08/29/20 00:00 11/23/20 03:51 07/20/22 00:00 HEMOGLOBIN A1C 5.7 % 9.9 10.0 ! 10.1 ! (E) !: Data is abnormal (E): External lab result Imaging/Testing: Geronimo Lee MD documented in this [facility]01-21-2021 NoteHospitalist Discharge Summary Will Jacinto : [...] transgender male, biologically female, [facility] abdominal pain, out of control glucose readings and reported mental status change. However, EMS in the hospital reported that he was alert and oriented x3, however, he says that recently he has had increasing abdominal distention and distress and he noticed that his glucoses have been harder and harder to control. Pt was admitted to [facility]. Pt had dysfunctinal uterine bleeding and transferred to [facility] for Marine Tower Operator eval. Also had ab pain and found to have ileus. Seen by GI and recommended reglan. Pt had BMs. abd pain better. Advance diet to GI soft Seen by Marine Tower Operator and had hysteroscopy with biopsy done KUB [...] 08/23/2020 No results found for: PHART, PO2ART, DXR2LGX No results for input(s): INR in the [...] Result Date: 11/27/2020 [id number] Radiology ACCESSION EXAM DATE/TIME PROCEDURE ORDERING PROVIDER [id number] 11/27/2020 08:28 EST CR Abdomen AP MD MARTIN KHALED CPT code 62183 Reason For Exam (CR Abdomen AP) ileus Report ABDOMEN -1 VIEW: CLINICAL INDICATION: Ileus TECHNIQUE: 1 view of abdomen and pelvis COMPARISON: November 25, 2020 FINDINGS: Overall interval decrease in the amount of large and small bowel gas, which is in a nonobstructed pattern. No abnormal soft tissue calcifications are identified. Multilevel thoracolumbar degenerative change. IMP (more content not included)...[facility] SystemEvaluation noteNo assessment information availableWCleveland Clinic Medina Hospital Work Phone: Evaluation note* Diagnosis Dental caries- Primary Unspecified dental caries [facility] Diagnosis Type 2 diabetes mellitus with hyperglycemia, with long-term current use of insulin ([facility]) ([facility])- Primary Mixed hyperlipidemia Primary hypertension Unspecified essential hypertension [facility] this [facility]* Diagnosis Abdominal pain, generalized- Primary Gastroparesis documented [facility] this [facility]* Diagnosis Chest pain, unspecified type Chest pain, unspecified type documented in this encounter [facility] note* Diagnosis Pyelonephritis- Primary Unspecified pyelonephritis Upper abdominal pain Nausea Nausea alone documented in this encounter [facility] note* Diagnosis Upper abdominal pain- Primary Upper abdominal pain Hypoglycemia Hypoglycemia, unspecified Abdominal pain Abdominal pain, unspecified site documented in this encounter [facility] note* Diagnosis Hypoglycemia due to insulin- Primary Hypoglycemia Hypoglycemia, unspecified Hypothermia, initial encounter Altered mental status, unspecified 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 Hypothermia, not associated with low environmental temperature Diabetic gastroparesis associated with type 2 diabetes mellitus ([facility]) ([facility]) Type II or unspecified type diabetes mellitus with neurological manifestations, not stated as uncontrolled Type 2 diabetes mellitus with hyperglycemia, with long-term current use of insulin ([facility]) Class 3 severe obesity due to excess calories with serious comorbidity and body mass index (BMI) of 60.0 to 69.9 in adult ([facility]) Acinetobacter lwoffi infection Infection due to other gram-negative organisms in conditions classified elsewhere and of unspecified site Bacteremia due to Gram-negative bacteria Sepsis without acute organ dysfunction ([facility]) documented in this encounter [facility] note* Diagnosis Type 2 diabetes mellitus with hyperglycemia, with long-term current use of insulin ([facility])- Primary Mixed hyperlipidemia Primary hypertension Unspecified essential hypertension documented in this encounter [facility] note* Diagnosis Nausea vomiting and diarrhea- Primary Dehydration documented in this encounter [facility] note* Diagnosis Nausea with vomiting, unspecified documented in this encounter [facility]* Diagnosis Nausea and vomiting, unspecified vomiting type- Primary documented in this encounter [facility] note* Diagnosis Nausea and vomiting, unspecified vomiting type- Primary Cystitis Unspecified cystitis documented in this encounter [facility]* Diagnosis Hypoglycemia- Primary Hypoglycemia, unspecified documented in this encounter [facility]* Diagnosis Nausea with vomiting, unspecified- Primary Nausea with vomiting, unspecified documented in this encounter [facility]* Diagnosis Lung nodule- Primary Other diseases of lung, not elsewhere classified JOHN (obstructive sleep apnea) Obstructive sleep apnea (adult) (pediatric) Morbid obesity with BMI of 45.0-49.9, adult ([facility]) [facility] Diagnosis Solitary pulmonary nodule- Primary documented in this encounter [facility]* Diagnosis Acute cholecystitis- Primary Acute cholecystitis documented in this encounter [facility]* Diagnosis Hypoglycemic episode in patient with diabetes mellitus (HCC)- Primary documented in this encounter [facility]* Diagnosis Cholecystitis- Primary Cholecystitis, unspecified documented in this encounter [facility]* Diagnosis History of cholecystitis- Primary documented in this encounter [facility]* Diagnosis Cholecystitis- Primary Cholecystitis, unspecified documented in this encounter [facility]* Diagnosis Cholecystitis- Primary Cholecystitis, unspecified Morbid obesity (HCC) Morbid obesity Class 3 severe obesity with serious comorbidity and body mass index (BMI) of 50.0 to 59.9 in adult, unspecified obesity type (HCC) documented in this encounter [facility] note* Diagnosis Fecal occult blood test positive- Primary History of anemia Personal history of diseases of blood and blood-forming organs Calculus of gallbladder without cholecystitis without obstruction BMI 50.0-59.9, adult (HCC) documented in this encounter [facility]* Diagnosis Type 2 diabetes mellitus with [...] 50.0-59.9, adult (HCC) documented in this encounter [facility]* Diagnosis PAD (peripheral artery disease) (HCC)- [...] 50.0-59.9, adult (HCC) documented in this encounter [facility]* Diagnosis PAD (peripheral artery disease) (HCC) Unspecified peripheral vascular disease Other fecal abnormalities Personal history of diseases of the blood and blood-forming organs and certain disorders involving the immune mechanism Calculus of gallbladder without cholecystitis without obstruction Body mass index (BMI) 50.0-59.9, adult ([facility]) documented in this encounter [facility] note* Diagnosis Type 2 diabetes mellitus with hyperglycemia, with long-term current use of insulin ([facility])- Primary Type 2 diabetes mellitus with diabetic autonomic neuropathy, with long-term current use of insulin ([facility]) Hypertension associated with type 2 diabetes mellitus ([facility]) Mixed diabetic hyperlipidemia associated with type 2 diabetes mellitus ([facility]) Class 3 severe obesity due to excess calories with serious comorbidity and body mass index (BMI) of 45.0 to 49.9 in adult Microalbuminuria Proteinuria Other fecal abnormalities Personal history of diseases of the blood and blood-forming organs and certain disorders involving the immune mechanism Calculus of gallbladder without cholecystitis without obstruction Body mass index (BMI) 50.0-59.9, adult ([facility]) documented in this encounter [facility] note* Diagnosis Acute nonintractable headache, unspecified headache type- Primary Nausea Nausea alone Acute cystitis without hematuria Hyperglycemia Other abnormal glucose documented in this encounter [facility] note* Diagnosis Type 2 diabetes mellitus with hyperglycemia, with long-term current use of insulin ([facility])- Primary Insulin resistance Other abnormal glucose Type 2 diabetes mellitus with peripheral neuropathy ([facility]) Type 2 diabetes mellitus with albuminuria ([facility]/HCC) ([facility]) (HCC) Hypertension associated with type 2 diabetes mellitus ([facility]) Type 2 diabetes mellitus with hyperlipidemia ([facility]) ([facility]) documented in this encounter [facility] Discharge instructions* Attachments The following attachments cannot be sent through Care Everywhere. * Kidney Infection Discharge Instructions ([place]) documented in this [facility] Discharge instructions* Attachments The following attachments cannot be sent through Care Everywhere. * Acute Cystitis Discharge Instructions ([place]) * Nausea and Vomiting, Adult ED ([place]) documented in this [facility] Discharge instructions* Attachments The following attachments cannot be sent through Care Everywhere. * Upper GI Endoscopy Discharge Instructions ([place]) documented in this [facility] for [facility] (narrative)No reason for referral information availableWCleveland Clinic [facility]ina Hospital Work Phone: Reason for visit Narrative* Imaging (Routine) - Closed Specialty Diagnoses / Procedures Referred By Contac t Referred To Contact Cardiology Diagnoses PAD (peripheral artery disease) ([facility]) Procedures Vascular US lower extremity arterial PVR Alejandro Mandel, COMMUNITY SPORTS COORDINATOR - [employer] [address] [place] [address] Phone: tel: fax: Referral ID Status Reason Start Date Expiration Date Visits Re quested Visits Authorized [id number] Closed 02/01/2025 02/01/2026 1 1 [facility] for visit Narrative* Auth/Cert (Routine) Specialty Diagnoses / Procedures Referred By Contdash t Referred To Contact Diagnoses Other fecal abnormalities Personal history of diseases of the blood and blood-forming organs and certain disorders involving the immune mechanism Calculus of gallbladder without cholecystitis without obstruction Body mass index (BMI) 50.0-59.9, adult (HCC) Procedures KS COLONOSCOPY FLX DX W/COLLJ SPEC WHEN PFRMD [place] ESOPHAGOGASTRODUODENOSCOPY TRANSORAL DIAGNOSTIC COLONOSCOPY ESOPHAGOGASTRODUODENOSCOPY, DIAGNOSTIC Farhad Chang MD [address] [place] [address] Phone: tel: fax: [facility] [address] [place] [address] Phone: tel: Referral ID Status Reason Start Date Expiration Date Visits Re quested Visits Authorized [address] [facility] Summary Purpose Family History No Family History Records FoundNo Family History Records FoundNo Family History Records FoundNo Family History Records FoundNo Family History Records FoundNo Family History Records FoundNo Family History Records FoundNo Family History Records FoundNo Family History Records Found Advance Directives No Advanced Directives Records FoundDocuments on File Type Date Recorded Patient Nursery School Attendant Expl anation DNR (Do Not Resuscitate) 09/17/2020 Date Activated Date Inactivated Comments 12/31/2023 8:33 PM 01/11/2024 8:41 PM Date Activated Date Inactivated Comments 10/07/2023 4:58 PM 10/17/2023 2:13 AM Date Activated Date Inactivated Comments 08/17/2023 10:49 PM 08/19/2023 10:57 PM Date Activated Date Inactivated Comments 06/28/2023 8:48 AM 07/01/2023 4:24 PM Healthcare Agents on File Name Relationship Healthcare Agent [facility] Jovana Quesada (POA) [facility] Care Agent Documents on File Type Date Recorded Patient Nursery School Attendant Expl anation Advance Directives and Living Will Power of Director Of Education Latest Code Status on File Code Status Date Activated Date Inactivated Comments Full Code 06/14/2019 6:51 PM 06/20/2019 9:23 PM Full Code 05/16/2019 6:59 PM 05/20/2019 11:51 PM Full Code 05/16/2019 8:10 AM 05/16/2019 9:40 AM Full Code 05/16/2019 6:16 AM 05/16/2019 8:09 AM Full Code 01/11/2019 10:40 PM 01/17/2019 5:31 PM Documents on File Type Date Recorded Patient Nursery School Attendant Expl anation ACP-Advance Directive ACP-Power of Director Of Education Latest Code Status on File Code Status Date Activated Date Inactivated Comments Full Code 09/18/2020 1:15 AM Full Code 06/14/2019 6:51 PM 06/20/2019 9:23 PM Documents on File Type Date Recorded Patient Nursery School Attendant Expl anation ACP-Advance Directive ACP-Power of Director Of Education DNR Documentation 10/01/2020 12:28 PM Latest Code [...] Documents on File Type Date Recorded Patient Nursery School Attendant Expl anation DNR (Do Not Resuscitate) 09/17/2020 [...] Documents on File Type Date Recorded Patient Nursery School Attendant Expl anation DNR (Do Not Resuscitate) 10/24/2024 12:44 PM DNR (Do Not Resuscitate) 09/17/2020 Healthcare Agents on File Name Relationship Healthcare Agent Relationshi p Communication Jovana Quesada (POA) [facility] Care Agent Documents on File Type Date Recorded Patient Nursery School Attendant Expl anation DNR (Do Not Resuscitate) 2024 1:55 PM DNR (Do Not Resuscitate) 10/24/2024 12:44 PM DNR (Do Not Resuscitate) 09/17/2020 Documents on File Type Date Recorded Patient Nursery School Attendant Expl anation DNR (Do Not Resuscitate) 2024 [...] Documents on File Type Date Recorded Patient Nursery School Attendant Expl anation DNR (Do Not Resuscitate) 12/04/2024 [...] Documents on File Type Date Recorded Patient Nursery School Attendant Expl anation DNR (Do Not Resuscitate) 12/04/2024 [...] sent through Care Everywhere. * Post-op Infection ([place]) documented in this encounter* Instructions* Eva Awan, RN - 01/02/2020 U500 Insulin: The physician managing your U500 insulin should give specific recommendations before your surgery. Please call the managing physician's office if you do not already have instructionsin regards to your insulin. Please bring your [facility] Surgical Information folder on the day of [...] sent through Care Everywhere. * Hysteroscopy: Pre-op ([place]) * levonorgestrel intrauterine system ([place]) documented in this encounter* Discharge Instr - CHRISTY* Valeria Calzada, RN - 09/18/2020 11:40 AM EST Continuity [...] Hospital Unit/Room#: 268/2681 Discharging Unit Phone Number: [phone] Emergency Contact: Extended Emergency Contact Information Primary Emergency Contact: Apoorva Lubin [facility] Mobile Relation: Other Secondary Emergency [...] List Diagnosis Code Cellulitis L03.90 Chronic osteomyelitis ([facility]) M86.60 Uncontrolled type 2 diabetes mellitus with complication ([facility]) E11.8, E11.65 Type 2 diabetes mellitus with hyperglycemia, with long-term current use of insulin ([facility]) E11.65, Z79.4 Class 3 severe obesity due to excess calories with serious comorbidity and body mass index (BMI) of50.0 to 59.9 in adult ([facility]) E66.01, Z68.43 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 ([facility]) E11.51 Cellulitis and abscess of lower extremity L03.119, L02.419 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 Chronic acquired lymphedema I89.0 Left leg cellulitis L03.116 Class 3 severe obesity due to excess calories with serious comorbidity and body mass index (BMI) of60.0 to 69.9 in adult ([facility]) E66.01, Z68.44 Post-menopausal bleeding N95.0 Hyperglycemia R73.9 Diabetic foot infection ([facility]) E11.628, L08.9 S/P AKA (above knee amputation) unilateral, right ([facility]) Z89.611 Morbid obesity ([facility]) E66.01 Ileus ([facility]) K56.7 Isolation/Infection: Isolation Contact [...] Dependent Dressing Dependent Toileting Dependent Feeding Assisted Barrel 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 Assisted Med Delivery none Wound Care Documentation [...] Readmission: 0 Discharging to Facility/ Agency Name: [place] Address: [facility] [address] [facility] [address] Dialysis Facility (if applicable) Name: Address: Dialysis Schedule: Phone: Fax: Mica Sizer/Drug Enforcement Agent signature: at11:40 AM EST PHYSICIAN SECTION Prognosis: Fair Condition at Discharge: Stable Rehab Potential (if transferring to Rehab): Fair Recommended Labs or Other Treatments After Discharge: none Physician Certification: I certify the above information and transfer of Will Jacinto is necessary for the continuing treatment of the diagnosis listed and that he requires Intermediate Facility for greater 30 days. Update Admission H&P: No change in H&P PHYSICIAN SIGNATURE: * Additional Instructions* Анна Villela MD - 09/30/2020 Please fax BG logs to Dr. Lee at [phone] in 2 weeks. documented in this encounter* [...] PCP: Jared Guzman MD Discharging Nurse: [facility] Hospital Unit/Room#: 158/1581 Discharging Unit Emergency Contact: Extended Emergency Contact Information Primary Emergency Contact: Apoorva Lubin [facility] Mobile Relation: Other Secondary Emergency Contact: Jovana Quesada Relation: Niece/Nephew Past Surgical History: Past Surgical History: Procedure Laterality Date ABOVE KNEE AMPUTATION Right 06/16/2019 ABSCESS DRAINAGE Right 09/09/2018 FOOT; [facility] DILATION AND CURETTAGE OF UTERUS 05/18/2019 ENDOSCOPY, COLON, DIAGNOSTIC 09/19/[address] Hyed WISDOM TOOTH EXTRACTION Immunization History: Immunization History Administered Date(s) Administered Influenza, Quadv, 6 mo and older, IM, PF (Flulaval, Fluarix) 01/14/2019 Active Problems: Patient Active Problem List Diagnosis Code Cellulitis L03.90 Chronic osteomyelitis ([facility]) M86.60 Uncontrolled type 2 diabetes mellitus with complication ([facility]) E11.8, E11.65 Type 2 diabetes mellitus with hyperglycemia, with long-term current use of insulin ([facility]) E11.65, Z79.4 Class 3 severe obesity due to excess calories with serious comorbidity and body mass index (BMI) of50.0 to 59.9 in adult ([facility]) E66.01, Z68.43 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 ([facility]) E11.51 Cellulitis and abscess of lower extremity L03.119, L02.419 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 Chronic acquired lymphedema I89.0 Left leg cellulitis L03.116 Class 3 severe obesity due to excess calories with serious comorbidity and body mass index (BMI) of60.0 to 69.9 in adult ([facility]) E66.01, Z68.44 Post-menopausal bleeding N95.0 Hyperglycemia R73.9 Diabetic foot infection ([facility]) E11.628, L08.9 S/P AKA (above knee amputation) unilateral, right ([facility]) Z89.611 Morbid obesity ([facility]) E66.01 Ileus ([facility]) K56.7 Nausea and vomiting R11.2 Esophagitis K20.90 Hypertension I10 Diabetic hyperosmolar non-ketotic state ([facility]) E11.00 Isolation/Infection: Isolation Contact [...] Assisted Dressing Assisted Toileting Assisted Feeding Assisted Barrel Finisher Assisted Med Delivery whole Wound Care Documentation [...] 21 [facility] Address: [address] [place] [address] Dialysis Facility (if applicable) Name: Address: Dialysis Schedule: Phone: Fax: Mica Sizer/Drug Enforcement Agent signature: PHYSICIAN SECTION Prognosis: Good Condition at Discharge: Stable Rehab Potential (if transferring to Rehab): Good Recommended Labs or Other Treatments After Discharge: Physician Certification: I certify the above information and transfer of Will Jacinto is necessary for the continuing treatment of the diagnosis listed and that he requires Intermediate Facility for less 30 days. Update Admission [...] MD Discharging Nurse: Nicolle Bland Hospital Unit/Room#: [id number] Discharging Unit Emergency Contact: Extended Emergency Contact Information Primary Emergency Contact: Apoorva Lubin [facility] Mobile Relation: Other Secondary Emergency [...] List Diagnosis Code Cellulitis L03.90 Chronic osteomyelitis ([facility]) M86.60 Uncontrolled type 2 diabetes mellitus with complication ([facility] [facility] E11.8, E11.65 Type 2 diabetes mellitus with hyperglycemia, with long-term current use of insulin ([facility]) E11.65, Z79.4 Class 3 severe obesity due to excess calories with serious comorbidity and body mass index (BMI) of50.0 to 59.9 in adult ([facility]) E66.01, Z68.43 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 ([facility]) E11.51 Cellulitis and abscess of lower extremity L03.119, L02.419 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 Chronic acquired lymphedema I89.0 Left leg cellulitis L03.116 Class 3 severe obesity due to excess calories with serious comorbidity and body mass index (BMI) of60.0 to 69.9 in adult ([facility]) E66.01, Z68.44 Post-menopausal bleeding N95.0 Hyperglycemia R73.9 Diabetic foot infection ([facility]) E11.628, L08.9 Isolation/Infection: Isolation [...] (171.5 kg) Mental Status: {IP PT MENTAL STATUS:98218} IV Access: {[facility] IV ACCESS:[id number]} Nursing Mobility/ADLs: Walking Assisted Transfer Assisted Bathing Assisted Dressing Assisted Toileting Assisted Feeding Assisted Barrel Finisher Independent Med Delivery whole Wound Care Documentation [...] (for information only, NOT a DME order): {EQUIPMENT:[id number]} Other Treatments: Patient's personal belongings (please select all that are sent with patient): None RN SIGNATURE: MANAGEMENT/SOCIAL WORK SECTION Inpatient Status Date: 06/14/19 Readmission Risk Assessment Score: Readmission Risk Risk of Unplanned Readmission: 28 Discharging to Facility/ Agency Name: [facility] Address:[address] [place] [address] Dialysis Facility (if applicable) Name: Address: Dialysis Schedule: Phone: Fax: Mica Sizer/Drug Enforcement Agent signature: {Esignature:[id number]} ICIAN SECTION Prognosis: Good Condition at Discharge: Stable Rehab Potential (if transferring to Rehab): Good Recommended Labs or Other Treatments After Discharge: Physician Certification: I certify the above information and transfer of Will Jacinto is necessary for the continuing treatment of the diagnosis listed and that he requires Intermediate Facility for greater 30 days. Update Admission H&P: No change in H&P PHYSICIAN SIGNATURE: * Additional Instructions* Jarek Katz MD - 06/16/2019 Llwpl-dmn-Qabd Leg Amputation: What to Expect at Home Your Recovery An digqy-ewu-jxpf amputation is surgery to remove your leg above the knee. Your doctor removed the leg while keeping as much healthy bone, skin, blood vessel, and nerve tissue as possible. After an waapp-eri-mcff leg amputation, you will probably have bandages, [...] your doctor if you can take an ifff-dzn-whftckl medicine. If you think your pain medicine [...] Where can you learn more? Go to [email or web address] and sign in to your [employer] account. Enter K761 in the Search Health Information box to learn more about Aymxo-kzp-Qbox Leg Amputation: What to Expect at Home. If you do not have an account, please click on the "Sign Up Now" link. Current as of: July 28, 2018 Content Version: 10.08-2019 [employer]. Care instructions adapted under license by [email or web address]. If youhave questions about a medical condition or this instruction, always ask your healthcare professional. [employer] disclaims any warranty or liability for your [...] 1st attempt with 22 gauge needle at [facility] site. Patient tolerated well, site benign. documented in this encounter* Valeria Calzada RN - 09/30/2020 6:43 PM EST Called report to Ninfa GUILLORY at [facility]. test deck supervisor is scheduled for 7:30PM Valeria Calzada [...] Consult: Joann PCP: Jared Guzman MD Outpt Sweeper Operator Highways: yes, JEROME Lee/Kedar ASSESSMENT: T2DM uncontrolled with [...] standpoint: Yes Home Going Endocrine Rx Recommendations-- H470ibi 160-110-150 units TID before meals Outpt Follow [...] capsule by mouth daily 09/29/20 Yes Nabil Hill, DO metoclopramide (REGLAN) 5 MG/ML injection Infuse [...] units TID AC meals 08/28/20 Carito Thacker, COMMUNITY SPORTS COORDINATOR - [employer] acetaminophen (TYLENOL) 325 MG tablet Take 650 [...] date of this note. * Nabil Hill, DO - 09/30/2020 11:43 AM EST Hospitalist [...] 09/30/2020 10:07 AM EST Physical Therapy Facility/Department: [facility] TELEMETRY Daily Treatment Note NAME: Will Gilliam Ophelia : 1965 Date of Service: 09/30/2020 Chart review completed. Pt declined therapy this day. Pt stated that he wasn't felling up it and wanted to rest. This 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 SPECIALIST encouraged pt to participate, pt still declined. I will re-attempt as schedule permits. Juwan Canales PTA * Valeria Calzada RN - 09/30/2020 9:39 AM EST 09/30/20 9:30 AM [phone] From: Valeria Calzada RE: WILL JACINTO 1965 Location: [facility] RM: [id number] is NPO for a procedure today. BS [...] PATIENT NAME: Will Jacinto DATE: 09/30/2020 PAGER: [phone] * Jagdeep Grace MD - 09/29/2020 1:00 PM EST Progress Note Date:09/29/2020 Room:890/2604 Patient Name:Will Jacinto Date of :1965 Age:54 [...] index (BMI) of50.0 to 59.9 in adult ([facility]) Resolved Problems: Ileus (HCC)). Plan: Start/continue incentive [...] PATIENT NAME: Will Jacinto DATE: 09/29/2020 PAGER: [phone] * Deborah Jha FLETCHER - 09/29/2020 12:33 PM EST Occupational Therapy Facility/Department: [facility] 2E TELEMETRY Daily Treatment Note NAME: Will [...] history that includes Abscess Drainage (Right, 09/09/2018); Saffell tooth extraction; Dilation and curettage of uterus [...] Timed Code Treatment Minutes: 20 Minutes(TH) FLETCHER aLmar/Elijah * Nabil Hill, DO - 09/29/2020 12:23 PM EST Hospitalist [...] * No resolved hospital problems. * NABIL IHLL DO * Chris Muniz MD - 09/29/2020 [...] BID Sergio Sibley DO 10 mL at 09/28/20 213 lactobacillus (CULTURELLE) capsule 1 capsule 1 capsule Oral Daily Nabil Hill DO 1 capsule at 09/28/20 0957 ARIPiprazole [...] Nabil M Esterle, DO 500 mg at 11/22/20 0926 sodium chloride flush 0.9 % injection 10 mL 10 mL Intravenous 2 times per day Nabil M Esterle, DO 10mL at 09/28/20 2134 sodium chloride flush 0.9 % injection 10 [...] Jacinto : 1965 AGE: 54 y.o. Room/Bed: [address] [place] [address] Admission Date: 09/17/2020 7:46 PM Consult Date: 09/18/20 Visit Date: 09/29/2020 Reason for Endocrine Consult: DM mgmt Provider/Team Requesting Consult: Joann PCP: Jared Guzman MD Outpt Sweeper Operator Highways: yes, JEROME Lee/Kedar ASSESSMENT: T2DM uncontrolled with [...] 60 gram limit no juice w/ trays Sweeper Operator Highways On-Call: AAGPITO Preferred Method of Communication/Reaching: PerfectServe. The above physician should be paged w/ questions/concerns about items being managed by Endocrinology Team. If there are any questions or concerns related to the info in this progress note please page the oncall managing consultant clinical professor directly. On-Call information can be found in the [employer] Online Directory. We can also be reached by [employer] communication system. We appreciate the opportunity to participate in this pt's ongoing medical care. ANTICIPATED ENDOCRINE HOME GOING RECOMMENDATIONS: Optimized for Discharge from Endocrine standpoint: Yes Home Going Endocrine Rx Recommendations-- Current hosp [id number] insulin doses. Outpt Follow Up-- As scheduled. [...] (!) 99/56 Pulse: 102 86 82 Resp: 17 17 20 Temp: 97 F (36.1 C) 96.8 F [...] units TID AC meals 08/28/20 Carito Thacker, COMMUNITY SPORTS COORDINATOR - [employer] acetaminophen (TYLENOL) 325 MG tablet Take 650 [...] Ordering Physician DO HILL LISA Accession Number [id number] CPT4 Codes 23587 () Reason For Exam ileus Report Clinical [...] w/ IV Contrast (IV Onl Ordering Physician [id number] DURHAM Accession Number [id number] CPT4 Codes 50263 (CT Abdomen/Pelvis w/ IV Contrast (IV Onl), Q9967 (CT ISOVUE 370MG/ML&[id number]&ML&1) Reason For Exam abd pain/tenderness Report CT [...] index (BMI) of50.0 to 59.9 in adult ([facility]) 09/27/2020 Yes Small vessel arterial disease due [...] PATIENT NAME: Will Jacinto DATE: 09/28/2020 PAGER: [phone] * Chris Muniz MD - 09/28/2020 9:18 [...] M Esterle, DO 4 mg at 09/27/20 075 traMADol (ULTRAM) tablet 50 mg 50 mg [...] kg/m Physical Exam Not indistress Lungs clear [id number] abodmen obese non tender CBC: Recent Labs [...] miralax 17 mg po BID * Asuncion Garibay DO - 09/28/2020 9:05 AM EST Department of Internal Medicine Division of Endocrinology, Diabetes, & Metabolism Endocrinology Progress Note Patient Name: Will Jacinto : 1965 AGE: 54 y.o. Room/Bed: 260/2601 Admission Date: 09/17/2020 7:46 PM Consult Date: 09/18/20 Visit Date: 09/28/2020 Reason for Endocrine Consult: DM mgmt Provider/Team Requesting Consult: Joann PCP: Jared Guzman MD Outpt Sweeper Operator Highways: yes, JEROME Lee/Kedar ASSESSMENT: T2DM uncontrolled with [...] 60 gram limit no juice w/ trays Sweeper Operator Highways On-Call: AGAPITO Preferred Method of Communication/Reaching: Booker. The above physician should be paged w/ questions/concerns about items being managed by Endocrinology Team. If there are any questions or concerns related to the info in this progress note please page the oncall managing consultant clinical professor directly. On-Call information can be found in the [facility] Online Directory. We can also be reached by Booker communication system. We appreciate the opportunity to participate in this pt's ongoing medical care. ANTICIPATED ENDOCRINE HOME GOING RECOMMENDATIONS: Optimized for Discharge from Endocrine standpoint: Yes Home Going Endocrine Rx Recommendations-- Current hosp [id number] insulin doses. Outpt Follow Up-- As scheduled. [...] units TID AC meals 08/28/20 Carito Thacker, COMMUNITY SPORTS COORDINATOR - [employer] acetaminophen (TYLENOL) 325 MG tablet Take 650 [...] Take 10 mg by mouth daily Historical ProviderMD benzonatate (TESSALON) 200 MG capsule Take 200 [...] Ordering Physician DO HILL LISA Accession Number [id number] CPT4 Codes 03322 () Reason For Exam ileus Report Clinical [...] w/ IV Contrast (IV Onl Ordering Physician [id number] ART BROOKS Accession Number [id number] CPT4 Codes 80056 (CT Abdomen/Pelvis w/ IV Contrast (IV Onl), Q9967 (CT ISOVUE 370MG/ML&[id number]&ML&1) Reason For Exam abd pain/tenderness Report CT [...] date of this note. * Lucia Michelle, 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 SPECIALIST - 09/27/2020 3:13 PM EST Physical Therapy Facility/Department: [facility] 2E TELEMETRY Daily Treatment Note NAME: Will Gilliam Ophelia : 1965 Date of Service: 09/27/2020 Discharge [...] history that includes Abscess Drainage (Right, 09/09/2018); Saffell tooth extraction; Dilation and curettage of uterus [...] problems. * ART STAPLETON, MDProgress Note Date:09/27/2020 Room:260/2601 Patient Name:Will Jacinto Date of :1965 [...] Consult: Joann PCP: Jared Guzman MD Outpt Sweeper Operator Highways: yes, JEROME Lee/Kedar ASSESSMENT: T2DM uncontrolled with [...] Home Going Endocrine Rx Recommendations-- Current hosp [id number] insulin doses Outpt Follow Up-- As scheduled [...] data in the 24 hours ending 09/27/20 7094 Diet: Dietary Nutrition Supplements: Low Calorie High [...] AC meals 08/28/20 Carito Thacker APRN - [employer] acetaminophen (TYLENOL) 325 MG tablet Take 650 [...] 5 mg 5 mg Intravenous Q6H PRN Priaynk Rios MD 5 mg at 09/21/20 1820 pantoprazole (PROTONIX) injection 40 mg 40 mg Intravenous BID Sergio Sibley DO 40 mg at 09/27/20 0755 And sodium chloride (PF) 0.9 % injection 10 mL 10 mL Intravenous BID Sergio Sibley DO 10 mL at 09/27/20 0758 lactobacillus [...] : GIB No Renal : CKD No FINANCIAL OPERATIONS CLERK : CVA/TIA No Musculoskeletal system : DJD [...] * NABIL HILL DO * Fernanda Chappell, RD, LD - 09/26/2020 1:38 PM EST [...] Accumulation: 7 - Moderate to Severe Extremities Camp Manager Strength: Not Performed Estimated Daily Nutrient Needs: Energy (kcal): 1939-2638; Weight Used for Energy Requirements: Adjusted(IBW) Protein [...] Usual Body Weight: 340 lb (154.2 kg)(01/02/20) Dodge Body Weight: 130 lbs; % Dodge Body Weight 263.8 % BMI: 55.4 Adjusted [...] Discharge Planning: Too soon to determine Contact: *[id number] * Chris Muniz MD - 09/26/2020 11:24 [...] BID Sergio Sibley DO 10 mL at 09/26/20 0938 lactobacillus [...] : GIB No Renal : CKD No FINANCIAL OPERATIONS CLERK : CVA/TIA No Musculoskeletal system : DJD [...] Consult: Joann PCP: Jared Guzman MD Outpt Sweeper Operator Highways: yes, JEROME Lee/Kedar ASSESSMENT: T2DM uncontrolled with [...] Home Going Endocrine Rx Recommendations-- Current hosp [id number] insulin doses Outpt Follow Up-- As scheduled [...] units TID AC meals 08/28/20 Carito Thacker COMMUNITY SPORTS COORDINATOR - [employer] acetaminophen (TYLENOL) 325 MG tablet Take 650 [...] BID Sergio Sibley DO 40 mg at 09/25/20 0857 And sodium chloride (PF) 0.9 % injection 10 mL 10 mL Intravenous BID Sergio Sibley DO 10 mL at 09/25/20 0856 lactobacillus [...] Nabil M Esterle, DO 50 mg at 11/12/20 2144 vitamin C (ASCORBIC ACID) tablet 500 [...] : GIB No Renal : CKD No FINANCIAL OPERATIONS CLERK : CVA/TIA No Musculoskeletal system : DJD [...] Consult: Joann PCP: Jared Guzman MD Outpt Sweeper Operator Highways: yes, JEROME Lee/Kedar ASSESSMENT: T2DM uncontrolled with [...] Home Going Endocrine Rx Recommendations-- Current hosp [id number] insulin doses Outpt Follow Up-- As scheduled [...] injection pen 280 units TID AC meals 10/21/20 Carito Thacker, COMMUNITY SPORTS COORDINATOR - [employer] acetaminophen (TYLENOL) 325 MG tablet Take 650 [...] BID Sergio Sibley DO 40 mg at 09/24/20 0824 And sodium chloride (PF) 0.9 % injection 10 mL 10 mL Intravenous BID Sergio Sibley DO 10 mL at 09/24/20 0824 lactobacillus [...] problems. * ART STAPLETON, MDProgress Note Date:09/23/2020 Room:[facility] Patient Name:Will Jacinto Date of :1965 Age:54 [...] Physician MD DAVID RICHARD H Accession Number [id number] CPT4 Codes 81552 () Reason For Exam ileus, improving Report [...] Physician MD DAVID RICHARD H Accession Number [id number] CPT4 Codes 10138 () Reason For Exam ileus Report ABDOMEN: [...] Accumulation: 7 - Moderate to Severe Extremities Camp Manager Strength: Not Performed Estimated Daily Nutrient Needs: Energy (kcal): 7107-1304; Weight Used for Energy Requirements: Adjusted(IBW) Protein [...] Usual Body Weight: 340 lb (154.2 kg)(01/02/20) Dodge Body Weight: 130 lbs; % Dodge Body Weight 263.8 % BMI: 55.4 Adjusted [...] Discharge Planning: Too soon to determine Contact: *[id number] * Gayle Hanna MD - 09/23/2020 11:12 [...] BID Sergio Sibley, DO 10 mL at 09/23/20 0810 lactobacillus [...] 09/23/2020 11:12 AM EST Physical Therapy Facility/Department: [facility] 2E TELEMETRY Daily Treatment Note NAME: Will [...] Diagnosis(es): The primary encounter diagnosis was Ileus ([facility]). Diagnoses of Nausea and vomiting, intractability of vomiting not specified, unspecified vomiting type and Generalized abdominalpain were also pertinent to this visit. has a past medical history of Abnormal uterine bleeding (AUB), Above knee amputation of right lowerextremity (HCC), Bipolar 1 disorder ([facility]), Blood circulation, collateral, Cellulitis, Depression, Diabetes mellitus (HCC), Disease of blood and blood forming organ, Endometrial hyperplasia, Hx of blood clots, Hyperlipidemia, Hypertension, Lymphedema, MDRO (multiple drug resistant organisms) resistance, Morbidly obese (HCC), Osteomyelitis (HCC), Osteomyelitis (HCC), Schizophrenia ([facility]), Sleep apnea, and Venous insufficiency. has a past surgical history that includes Abscess Drainage (Right, 09/09/2018); Saffell tooth extraction; Dilation and curettage of uterus [...] 09/23/2020 10:00 AM EST Occupational Therapy Facility/Department: [facility] 2E TELEMETRY Daily Treatment Note NAME: Will [...] history that includes Abscess Drainage (Right, 09/09/2018); Saffell tooth extraction; Dilation and curettage of uterus (05/18/2019); above knee amputation (Right, 06/16/2019); and Endoscopy, colon, diagnostic (09/19/2020). Restrictions Restrictions/Precautions Restrictions/Precautions: General Precautions, Fall Risk(R AKA, identifies as MALE "MARIA LUISA", tele, obese) Subjective General Chart Reviewed: Yes Patient assessed for rehabilitation services?: Yes Additional Pertinent Hx: R AKA Jun 2019 Family / Caregiver Present: No [...] established in collaboration with patient. AM-PAC Score [facility] Inpatient Daily Activity Raw Score: 16 (09/18/20952) [facility] Inpatient ADL T-Scale Score : 35.96 (09/18/20952) [...] Consult: Joann PCP: Jared Guzman MD Outpt Sweeper Operator Highways: yes, JEROME Lee/Kedar ASSESSMENT: T2DM uncontrolled with [...] 60 gram limit no juice w/ trays Sweeper Operator Highways On-Call: AGAPITO Preferred Method of Communication/Reaching: PerfectServe. The above physician should be paged w/ questions/concerns about items being managed by Endocrinology Team. If there are any questions or concerns related to the info in this progress note please page the oncall managing consultant clinical professor directly. On-Call information can be found in the [facility] Directory. We can also be reached by Booker communication system. We appreciate the opportunity to participate in this pt's ongoing medical care. ANTICIPATED ENDOCRINE HOME GOING RECOMMENDATIONS: Optimized for Discharge from Endocrine standpoint: No Home Going Endocrine Rx Recommendations-- Current hosp [id number] insulin doses. Outpt Follow Up-- As scheduled. [...] units TID AC meals 08/28/20 Carito Thacker, COMMUNITY SPORTS COORDINATOR - [employer] acetaminophen (TYLENOL) 325 MG tablet Take 650 [...] Ordering Physician DO HILL LISA Accession Number [id number] CPT4 Codes 58047 () Reason For Exam ileus Report Clinical [...] Onl Ordering Physician ART OWEN Accession Number [id number] CPT4 Codes 80565 (CT Abdomen/Pelvis w/ IV Contrast (IV Onl), Q9967 (CT ISOVUE 370MG/ML&[id number]&ML&1) Reason For Exam abd pain/tenderness Report CT [...] to discontinue it. I spoke with the mine safety engineer and re-invited him to continue to care [...] Consult: Joann PCP: Jared Guzman MD Outpt Sweeper Operator Highways: yes, JEROME Lee/Kedar ASSESSMENT: T2DM uncontrolled with [...] 60 gram limit no juice w/ trays Sweeper Operator Highways On-Call: AGAPITO Preferred Method of Communication/Reaching: Booker. The above physician should be paged w/ questions/concerns about items being managed by Endocrinology Team. If there are any questions or concerns related to the info in this CONSULTATION please page the communications designer managing consultant clinical professor directly. On-Call information can be found in the [facility] Online Directory. We can also be reached by Booker communication system. We appreciate the opportunity to participate in this pt's ongoing medical care. ANTICIPATED ENDOCRINE HOME GOING RECOMMENDATIONS: Optimized for Discharge from Endocrine standpoint: No Home Going Endocrine Rx Recommendations-- Current hosp [id number] insulin doses. Outpt Follow Up-- As scheduled. [...] units TID AC meals 08/28/20 Carito Thacker, COMMUNITY SPORTS COORDINATOR - [employer] acetaminophen (TYLENOL) 325 MG tablet Take 650 [...] 1757 09/20/20 2037 09/21/20 0655 09/21/20 1654 11/14/20 2029 11/15/20 0809 POCGLU 283* 352* 192* 129* 138* [...] Ordering Physician DO HILL LISA Accession Number [id number] CPT4 Codes 01929 () Reason For Exam ileus Report Clinical [...] w/ IV Contrast (IV Onl Ordering Physician [id number] -ART ZENG Accession Number [id number] CPT4 Codes 55831 (CT Abdomen/Pelvis w/ IV Contrast (IV Onl), Q9967 (CT ISOVUE 370MG/ML&[id number]&ML&1) Reason For Exam abd pain/tenderness Report CT [...] this note. * Asuncion Valencia APRN - [employer] - 09/22/2020 8:31 AM EST GENERAL SURGERY [...] willingness to proceed with plan. Asuncion Valencia [facility] Personal Pager [phone] [facility] Surgery Pager [phone] during hours 7:30a-4:30p Wednesday-Wednesday After hours, please contact physician communications designer. Associated attestation - Trae Pike MD - 09/22/2020 5:39 PM EST [facility] - Surgery [facility] Physicians Surgery Patient Name: Will Jacinto [...] 40 mg 40 mg Intravenous BID Sergio Manns, DO 40 mg at 09/21/20 0859 And sodium chloride (PF) 0.9 % injection 10 mL 10 mL Intravenous BID Sergio Sibley, DO 10 mL at 09/21/20 0903 lactobacillus [...] 3 mL 3 mL Intravenous Q8H Art Zeng DO 3 mL at 09/21/20 0558 OBJECTIVE [...] Jacinto : 1965 AGE: 54 y.o. Room[facility]: [facility] Admission Date: 09/17/2020 7:46 PM Consult Date: 09/18/20 Visit Date: 09/21/2020 Reason for Endocrine Consult: DM mgmt Provider/Team Requesting Consult: Joann PCP: Jared Guzman MD Outpt Sweeper Operator Highways: yes, JEROME Lee/Kedar ASSESSMENT: T2DM uncontrolled with [...] we can answer any further questions via PerfectServe. Inpt GMF glucose goal 150. Inpt ICU [...] 60 gram limit no juice w/ trays Sweeper Operator Highways On-Call: AGAPITO Preferred Method of Communication/Reaching: Booker. The above physician should be paged w/ questions/concerns about items being managed by Endocrinology Team. If there are any questions or concerns related to the info in this CONSULTATION please page the communications designer managing consultant clinical professor directly. On-Call information can be found in the [facility] Directory. We can also be reached by [employer] communication system. We appreciate the opportunity to [...] time yesterday evening. Pt is now ordered hlog qAC/HS. Review of Systems All other [...] units TID AC meals 08/28/20 Carito Thacker, COMMUNITY SPORTS COORDINATOR - [place]AN[place] acetaminophen (TYLENOL) 325 MG tablet [...] day insulin lispro 0-12 Units Subcutaneous TID insulin lispro 0-6 Units Subcutaneous Nightly pantoprazole [...] Ordering Physician DO HILL LISA Accession Number [id number] CPT4 Codes 86309 () Reason For Exam ileus Report Clinical [...] Onl Ordering Physician ART OWEN Accession Number [id number] CPT4 Codes 86534 (CT Abdomen/Pelvis w/ IV Contrast (IV Onl), Q9967 (CT ISOVUE 370MG/ML&[id number]&ML&1) Reason For Exam abd pain/tenderness Report CT [...] problems. * ART STAPLETON, MDProgress Note Date:09/20/2020 Room:[address] [place] [address] Patient Name:Will Jacinto Date of :1965 Age:54 [...] 15.3* PLT 544* 519* CHEMISTRIES: Recent Labs 09/18/202 09/19/20 0431 09/20/20 0507 NA 134* 131* 134* K 5.3* 5.8* 4.5 CL 99 99 101 CO2 25 25 27 BUN 35* 29* 22* CREATININE 0.99 0.88 0.81 GLUCOSE 310* 395* 259* PT/INR:No results for input(s): PROTIME, INR in the last 72 hours. APTT:No results for input(s): APTT in the last 72 hours. LIVER PROFILE: Recent Labs 09/17/20205309/18/20 0543 09/19/20430 AST 69* 74* 68* ALT 104* 104* 125* BILITOT 0.5 0.8 0.6 ALKPHOS 153* 133* 128* Imaging Last 24 Hours: Xr Abdomen (kub) (single Ap View) Result Date: 09/20/2020 Patient Name: WILL JACINTO ---Diagnostic Radiology--- Exam Date/Time 09/20/2020 08:59:00 EST Exam CR Abdomen AP Ordering Physician DO HILL LISA Accession Number [id number] CPT4 Codes 12039 () Reason For Exam ileus Report EXAMINATION: [...] Physician MD DAVID RICHARD H Accession Number [id number] CPT4 Codes 63831 () Reason For Exam ileus fu Report [...] Time: 09/19/2020 1:19 pm Signed by: MD MALENA, CIRILO Transcribed Date and Time: 09/19/2020 1:20 Assessment//Plan Hospital Problems Last Modified POA Ileus (HCC) 09/17/2020 Yes Assessment & Plan * Marcela Negron OTA - 09/20/2020 2:09 PM EST Occupational Therapy Facility/Department: [facility] 2E TELEMETRY Daily Treatment Note NAME: Will [...] 09/20/2020 10:57 AM EST Physical Therapy Facility/Department: [facility] 2E TELEMETRY Daily Treatment Note NAME: Will Jacinto : 1965 Chart review completed. Pt declined therapy this date due to nausea. I will re- attempt as schedule permits. Juwan Canales PTA * Asuncion Garibay DO - 09/20/2020 8:29 AM EST Department of Internal Medicine Division of Endocrinology, Diabetes, & Metabolism Endocrinology Progress Note Patient Name: Will Jacinto : 1965 AGE: 54 y.o. Room/Bed: 268/2681 Admission Date: 09/17/2020 7:46 PM Consult Date: 09/18/20 Visit Date: 09/20/2020 Reason for Endocrine Consult: DM mgmt Provider/Team Requesting Consult: Joann PCP: Jared Guzman MD Outpt Sweeper Operator Highways: yes, [facility] Lee/Kedar ASSESSMENT: T2DM uncontrolled with hyperglycemia Insulin [...] 60 gram limit no juice w/ trays Sweeper Operator Highways On-Call: AGAPITO Preferred Method of Communication/Reaching: Booker. The above physician should be paged w/ questions/concerns about items being managed by Endocrinology Team. If there are any questions or concerns related to the info in this CONSULTATION please page the communications designer managing consultant clinical professor directly. On-Call information can be found in the [facility] Online Directory. We can also be reached by Booker communication system. We appreciate the opportunity to [...] units TID AC meals 08/28/20 Carito Thacker, COMMUNITY SPORTS COORDINATOR - [employer] acetaminophen (TYLENOL) 325 MG tablet Take 650 [...] Ordering Physician DO HILL LISA Accession Number [id number] CPT4 Codes 64687 () Reason For Exam ileus Report Clinical [...] radiographic abnormality. Report Dictated on Workstation: [id number] --- Final --- Dictating Physician: MD BARRAGAN HARLAN Signed Date and Time: 09/18/20209:48 am Signed by: MD BARRAGAN HARLAN Transcribed Date and Time: 09/18/2020 10:25 Ct Abdomen Pelvis W Contrast Result Date: 09/17/2020 Patient Name: WILL JACINTO ---CT--- Exam Date/Time 09/17/202022:15:[address] Abdomen/Pelvis w/ IV Contrast (IV Onl Ordering Physician [id number] DURHAM Accession Number [id number] CPT4 Codes 18319 (CT Abdomen/Pelvis w/ IV Contrast (IV Onl), Q9967 (CT ISOVUE 370MG/ML&[id number]&ML&1) Reason For Exam abd pain/tenderness Report CT [...] flush 3 mL Intravenous Q8H Recent Labs 09/17/204 09/19/20 0431 WBC 11.0* 8.5 HGB 11.4* 10.6* [...] For additional Questions please call Endoscopy at [phone]. Thank You! * Asuncion Garibay, DO - 09/19/2020 8:42 AM EST Department of Internal Medicine Division of Endocrinology, Diabetes, & Metabolism Endocrinology Progress Note Patient Name: Will Jacinto : 1965 AGE: 54 y.o. Room/Bed: [facility] Admission Date: 09/17/2020 7:46 PM Consult Date: 09/18/20 Visit Date: 09/18/2020 Reason for Endocrine Consult: DM mgmt Provider/Team Requesting Consult: Joann PCP: Jared Guzman MD Outpt Sweeper Operator Highways: yes, JEROME Lee/Kedar ASSESSMENT: T2DM uncontrolled with [...] 60 gram limit no juice w/ trays Sweeper Operator Highways On-Call: AGAPITO Preferred Method of Communication/Reaching: CoreOSve. The above physician should be paged w/ questions/concerns about items being managed by Endocrinology Team. If there are any questions or concerns related to the info in this CONSULTATION please page the communications designer managing consultant clinical professor directly. On-Call information can be found in the [facility] Online Directory. We can also be reached by Booker communication system. We appreciate the opportunity to [...] Intake/Output Summary (Last 24 hours) at 09/18/2020 7684 Last data filed at 09/18/2020 1619 Gross [...] units TID AC meals 08/28/20 Carito Thacker, COMMUNITY SPORTS COORDINATOR - [employer] acetaminophen (TYLENOL) 325 MG tablet Take 650 [...] mLs by mouth as needed (constipation)Historical Provider, MD bisacodyl (DULCOLAX) [address] 10 [...] Ordering Physician DO HILL LISA Accession Number [id number] CPT4 Codes 89515 () Reason For Exam ileus Report Clinical [...] significant radiographic abnormality. Report Dictated on Workstation: [id number] --- Final --- Dictating Physician: MD BARRAGAN HARLAN Signed Date and Time: 09/18/20209:48 am Signed by: MD BARRAGAN HARLAN Transcribed Date and Time: 09/18/2020 10:25 Ct Abdomen Pelvis W Contrast Result Date: 09/17/2020 Patient Name: WILL JACINTO ---CT--- Exam Date/Time 09/17/202022:15:[address] Abdomen/Pelvis w/ IV Contrast (IV Onl Ordering Physician [id number] SHEIKH Accession Number [id number] CPT4 Codes 31841 (CT Abdomen/Pelvis w/ IV Contrast (IV Onl), Q9967 (CT ISOVUE 370MG/ML&[id number]&ML&1) Reason For Exam abd pain/tenderness Report CT [...] schizophrenia, female identifying as male. Admitted from [place] w/ abd pain/n/v concerning for ileus. Pt [...] loss Fluid Accumulation: 1 - Mild Extremities Camp Manager Strength: Not Performed Estimated Daily Nutrient Needs: Energy (kcal): 6484-7470; Weight Used for Energy Requirements: Adjusted(IBW) Protein (g): 53-64; Weight Used for Protein Requirements: Adjusted(IBW) Fluid (ml/day): per MD; Nutrition Related Findings: +BS; abd round, rotund. +1 pitting edema LLE, R AKA. Tamara 14. [id number], ALT and AST elevated Wounds: None Current Nutrition Therapies: DIET CLEAR LIQUID; Anthropometric Measures: Height: 5' 6" (167.6 cm) Current Body Weight: 360 lb (163.3 kg) Admission Body Weight: 360 lb (163.3 kg) Dodge Body Weight: 130 lbs; % Dodge Body Weight 276.9 % BMI: 58.1 Adjusted [...] Discharge Planning: Too soon to determine Contact: [phone] * Carito Ruelas, PT - 09/18/2020 10:15 AM EST Physical Therapy Facility/Department: [facility] TELEMETRY Initial Assessment NAME: Will Jacinto [...] independently to w/c. Pt can return to [facility] with PT pending progress PT Education: Goals;PT Role;Plan of Care;Precautions;General Safety REQUIRES PT FOLLOW UP: Yes Activity Tolerance Activity Tolerance: Patient limited by pain Patient Diagnosis(es): The primary encounter diagnosis was Ileus ([facility]). Diagnoses of Nausea and [...] (multiple drug resistant organisms) resistance, Morbidly obese ([facility]), Osteomyelitis ([facility]), Osteomyelitis ([facility]), Schizophrenia ([facility]), Sleep apnea, and Venous insufficiency. has a past surgical history that includes Abscess Drainage (Right, 09/09/2018); Saffell tooth extraction; Dilation and curettage of uterus [...] Lives With: Other (comment) Type of Home: Facility([facility]) Home Layout: One level Bathroom Shower/Tub: Shower chair with back, Walk-in shower Bathroom Toilet: Handicap height Bathroom Equipment: Grab bars in shower, Grab bars around toilet, Shower chair Bathroom Accessibility: Wheelchair accessible Home Equipment: Rolling walker, Wheelchair-manual Receives Help From: sewage plant attendant ADL Assistance: Needs assistance(assist for toileting and all ADLs (A x 1)) Homemaking Responsibilities: No Ambulation Assistance: Needs assistance(transfers only, wc mob) Transfer Assistance: Needs assistance(at [facility] to w/c) Active Bowling Or Skating Front Desk Clerk: No Patient's Bowling Or Skating Front Desk Clerk Info: facility, [facility] transport Additional Comments: pt states staff assist [...] climbing 3-5 steps with a railing?: Total AM-PAC Inpatient Mobility Raw Score : 10 AM-PAC [...] of right lowerextremity (HCC), Bipolar 1 disorder ([facility]), Blood circulation, collateral, Cellulitis, Depression, Diabetes mellitus (HCC), Disease of blood and blood forming organ, Endometrial hyperplasia, Hx of blood clots, Hyperlipidemia, Hypertension, Lymphedema, MDRO (multiple drug resistant organisms) resistance, Morbidly obese ([facility]), Osteomyelitis ([facility]), Osteomyelitis ([facility]), Schizophrenia ([facility]), Sleep apnea, and Venous insufficiency. has a past surgical history that includes Abscess Drainage (Right, 09/09/2018); Saffell tooth extraction; Dilation and curettage of uterus [...] Lives With: Other (comment) Type of Home: Facility([facility]) Home Layout: One level Bathroom Shower/Tub: Shower chair with back, Walk-in shower Bathroom Toilet: Handicap height Bathroom Equipment: Grab bars in shower, Grab bars around toilet, Shower chair Bathroom Accessibility: Wheelchair accessible Home Equipment: Rolling walker, Wheelchair-manual Receives Help From: sewage plant attendant ADL Assistance: Needs assistance(assist for toileting and all ADLs (A x 1)) Homemaking Responsibilities: No Ambulation Assistance: Needs assistance(transfers only, wc mob) Transfer Assistance: Needs assistance(at [facility] to w/c) Active Bowling Or Skating Front Desk Clerk: No Patient's Bowling Or Skating Front Desk Clerk Info: facility, [facility] transport Additional Comments: pt states staff assist with all ADLs. Pt transfers at [facility] to w/c then transfers at [facility] to commode with staff to assist with [...] sit: Stand by assistance Transfer Comments: at [facility] with bed height slightly elevated Vision - [...] : GIB No Renal : CKD No FINANCIAL OPERATIONS CLERK : CVA/TIA No Musculoskeletal system : DJD [...] Adj. bp meds Priyank Rios MD * Gregg Ema, COMMUNITY SPORTS COORDINATOR - FINANCIAL OPERATIONS CLERK - 11/28/2020 10:52 AM EST Department of Internal Medicine Division of Endocrinology, Diabetes, & Metabolism Endocrinology Progress Note Patient Name: Will Jacinto : 1965 AGE: 55 y.o. Room/Bed: [facility] Admission Date: 11/22/2020 5:55 PM Consult Date: 11/24/20 Visit Date: 11/28/2020 Reason for Endocrine Consult: "out of control diabetic" Provider/Team Requesting Consult: Joann PCP: Jared Guzman MD Outpt Sweeper Operator Highways: yes, [facility] ASSESSMENT: T2DM uncontrolled w/ hyperglycemia, on long-term [...] doses (160-110-150 units TID) Outpt Follow Up-- [facility] Dr. Lee Appointment request sent to Endo office Staff: No, has appt in January SUBJECTIVE/HPI: CHIEF COMPLAINT: Abdominal Pain Type of DM: 2 Onset of DM: unclear Home DM Medication Regimen: U500 pen 160/110/150 TID; given via SNF ([facility]) DM control (last A1c/glucose data): Lab Results [...] am. Plan for d/c to [facility] later today. ROS negative except for those [...] Radiology ACCESSION EXAM DATE/TIME PROCEDURE ORDERING PROVIDER [id number] 11/22/2020 18:30 EST CR Chest Portable [id number] NELSON CPT code 81623 Reason For Exam (CR Chest Portable) SOB [...] Result Date: 11/22/2020 [id number] Computed Tomography ACCESSION EXAM DATE/TIME PROCEDURE ORDERING PROVIDER [id number] 11/22/2020 19:[address] Abdomen/Pelvis w/ IV [id number] -JOEL NELSON Contrast (IV Onl CPT code 37108 Q9967 Reason For Exam (CT Abdomen/Pelvis w/ [...] radiology, and other reports. 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 Pt reports his wt fluctuates frequently, stating UBW 350#, and pt last weighed 353# in nursing facility within past month Malnutrition Assessment: Malnutrition Status: Insufficient data Estimated Daily Nutrient Needs: Energy (kcal): 9927-0839; Weight Used for Energy Requirements: Adjusted(IBW) Protein [...] however 330# per Epic 09/17, 340# 01/02) Dodge Body Weight: 130 lbs; % Dodge Body Weight 243.8 % BMI: 51.2 Adjusted [...] Discharge Planning: Too soon to determine Contact: [phone] * Ema Escobedo APRN - FINANCIAL OPERATIONS CLERK - 11/27/2020 1:41 PM EST Department of Internal Medicine Division of Endocrinology, Diabetes, & Metabolism Endocrinology Progress Note Patient Name: Will Jacinto : 1965 AGE: 55 y.o. Room/Bed: [facility] Admission Date: 11/22/2020 5:55 PM Consult Date: 11/24/20 Visit Date: 11/27/2020 Reason for Endocrine Consult: "out of control diabetic" Provider/Team Requesting Consult: Joann PCP: Jared Guzman MD Outpt Sweeper Operator Highways: yes, [facility] ASSESSMENT: T2DM uncontrolled w/ hyperglycemia, on long-term [...] doses (160-110-150 units TID) Outpt Follow Up-- [facility] Dr. Lee Appointment request sent to Endo office Staff: No, has appt in January SUBJECTIVE/HPI: CHIEF COMPLAINT: Abdominal Pain Type of DM: 2 Onset of DM: unclear Home DM Medication Regimen: U500 pen 160/110/150 TID; given via SNF ([facility]) DM control (last A1c/glucose data): Lab Results Component Value Date LABA1C 10.0 (A) 11/23/2020 Lab Results Component Value Date EAG 240 11/23/2020 Pt is now s/p D&C and IUD placement. C/o abd tenderness, nausea. No BM today. Had soup and milk this am. Denies CP/SOB. BG 205 this am. Pt continues to be on full liquid currently. Plan for d/c to [facility] once stable. ROS negative except for those [...] Radiology ACCESSION EXAM DATE/TIME PROCEDURE ORDERING PROVIDER [id number] 11/22/2020 18:30 EST CR Chest Portable [id number] NELSON CPT code 49054 Reason For Exam (CR Chest Portable) SOB [...] Tomography ACCESSION EXAM DATE/TIME PROCEDURE ORDERING PROVIDER [id number] 11/22/2020 19:[address] Abdomen/Pelvis w/ IV [id number] -JOEL NELSON Contrast (IV Onl CPT code 51024 Q9967 Reason For Exam (CT Abdomen/Pelvis w/ [...] radiology, and other reports. I reviewed the SHAKER REPAIRER/resident's note and agree with the documented findings [...] outpatient - plan to DC back to [facility] * Herberth Steelehanie LuisBenji, PT - 11/27/2020 9:48 AM EST Physical Therapy Facility/Department: [facility] ONCOLOGY Initial Assessment NAME: Will Jacinto [...] MDRO (multiple drugresistant organisms) resistance, Morbidly obese ([facility]), Osteomyelitis (HCC), Osteomyelitis (HCC), Schizophrenia ([facility]), Sleep apnea, and Venous insufficiency. has a past surgical history that includes Abscess Drainage (Right, 09/09/2018); Saffell tooth extraction; Dilation and curettage of uterus [...] Home Equipment: Wheelchair-electric Receives Help From: Family, sewage plant attendant ADL Assistance: Needs assistance Homemaking Assistance: Needs assistance Homemaking Responsibilities: No Active Bowling Or Skating Front Desk Clerk: No Patient's Bowling Or Skating Front Desk Clerk Info: facility, [facility] transport Additional Comments: from facility, assist with ADLs, uses electric wheelchair for mobility, stand pivot transfer with [facility] 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 SPECIALIST Cognition Cognition Arousal/Alertness: Appropriate responses to stimuli [...] Plan of Care supervision is transferred to [facility] Re[facility] Department Physical Therapist. Goals and/or treatment [...] 08/23/2020 No results found for: PHART, PO2ART, HOA3IOS No results for input(s): INR in the [...] had multiple BMs this morning. Seen by Marine Tower Operator and had hysteroscopy today with biopsy done KUB showing possible ileus. Pt asking for food. Cont liquid diet for now. Added miralax. Monitor serial KUBs. Seen by GI -started reglan Cont PPI Endocrinology following for hyperglycemia Pt denied any chest pain. Troponin negative. Seen by cardiology Added PT/OT Michael Martin MD Rounding Hospitalist * Denise Ramon OT - 11/27/2020 9:40 AM EST Occupational [...] of right lowerextremity (HCC), Bipolar 1 disorder ([facility]), Blood circulation, collateral, Cellulitis, Depression, Diabetes mellitus ([facility]), Disease of blood and blood forming organ, Endometrial carcinoma ([facility]), Endome trial hyperplasia, Hx of blood clots, Hyperlipidemia, Hypertension, Lymphedema, MDRO (multiple drugresistant organisms) resistance, Morbidly obese ([facility]), Osteomyelitis ([facility]), Osteomyelitis (HCC), Schizophrenia ([facility]), Sleep apnea, and Venous insufficiency. has a past surgical history that includes Abscess Drainage (Right, 09/09/2018); Saffell tooth extraction; Dilation and curettage of uterus [...] Home Equipment: Wheelchair-electric Receives Help From: Family, sewage plant attendant ADL Assistance: Needs assistance Homemaking Assistance: Needs assistance Homemaking Responsibilities: No Active Bowling Or Skating Front Desk Clerk: No Patient's Bowling Or Skating Front Desk Clerk Info: facility, [facility] transport Additional Comments: from facility, assist with ADLs, uses electric wheelchair for mobility, stand pivot transfer with [facility] 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 SPECIALIST Objective Vision: Within Functional Limits Hearing: Within [...] Equipment Evaluation, Education, & procurement OutComes Score AM-PAC Daily Activity Inpatient How [...] None AM-PAC Inpatient Daily Activity Raw Score: 15 AM-PAC Inpatient ADL T-Scale Score : 34.69 ADL [...] [facility]. Goals and/or treatment plan was established in collaboration with patient/family/other representatives. Denise Ramon OTR/L * Jagdeep Grace MD - 11/27/2020 8:14 AM EST Progress Note Date:11/27/2020 Room:[address] [place] [address] Patient Name:Will Jacinto Date of :1965 Age:55 [...] Radiology ACCESSION EXAM DATE/TIME PROCEDURE ORDERING PROVIDER [id number] 11/25/2020 15:08 EST CR Abdomen AP Lorenzo STAPLETON MICHAEL CPT code 97991 Reason For Exam (CR Abdomen AP) abd [...] pm Signed by: MD HANNA NICHOLAS T ranflrijeffry Date and Time: 11/25/2020 3:31 Us Non Ob Transvaginal Result Date: 11/25/2020 Patient Name: WILL JACINTO Ultrasound ACCESSION EXAM DATE/TIME PROCEDURE ORDERING PROVIDER [id number] 11/25/2020 10:38 EST US Transvaginal MD CRAMER DIANA CHRISTINE CPT code 47240 Reason For Exam (US Transvaginal) AUB Report [...] PATIENT NAME: Will Jacinto DATE: 11/27/2020 PAGER: [phone] * Ema Escobedo, COMMUNITY SPORTS COORDINATOR - FINANCIAL OPERATIONS CLERK - 11/26/2020 1:45 PM EST Department of Internal Medicine Division of Endocrinology, Diabetes, & Metabolism Endocrinology Progress Note Patient Name: Will Jacinto : 1965 AGE: 55 y.o. Room/Bed: [facility] Admission Date: 11/22/2020 5:55 PM Consult Date: 11/24/20 Visit Date: 11/26/2020 Reason for Endocrine Consult: "out of control diabetic" Provider/Team Requesting Consult: Joann PCP: Jared Guzman MD Outpt Sweeper Operator Highways: yes, [facility] ASSESSMENT: T2DM uncontrolled w/ hyperglycemia, on long-term [...] doses (160-110-150 units TID) Outpt Follow Up-- [facility] Dr. Lee Appointment request sent to Endo office Staff: No, has appt in January SUBJECTIVE/HPI: CHIEF COMPLAINT: Abdominal Pain Type of DM: 2 Onset of DM: unclear Home DM Medication Regimen: U500 pen 160/110/150 TID; given via [facility] ([facility]) DM control (last A1c/glucose data): Lab Results Component Value Date LABA1C 10.0 (A) 11/23/2020 Lab Results Component Value Date EAG 240 11/23/2020 Results for WILL JACINTO "MARIA LUISA" ( ) as of 11/26/2020 13:51 Ref. [...] currently. Plan for d/c to [facility] once stable. ROS negative except for those [...] Radiology ACCESSION EXAM DATE/TIME PROCEDURE ORDERING PROVIDER [id number] 11/22/2020 18:30 EST CR Chest Portable [id number] NOLASCOSHUA CPT code 55647 Reason For Exam (CR Chest Portable) SOB [...] Tomography ACCESSION EXAM DATE/TIME PROCEDURE ORDERING PROVIDER [id number] 11/22/2020 19:[address] Abdomen/Pelvis w/ IV [id number] FARMERSHUA Contrast (IV Onl CPT code 80875 Q9967 Reason For Exam (CT Abdomen/Pelvis w/ [...] lobe pulmonary nodule. Report Dictated on Workstation: ConnectToHome --- Final --- Dictating Physician: MD KELLEY [...] radiology, and other reports. I reviewed the SHAKER REPAIRER/resident's note and agree with the documented findings [...] outpatient - plan to DC back to [facility] Time spent with patient over 51% total time 15 minutes which includes review of records, counseling, management, and coordination of care as documented in note. * Jagdeep Grace MD - 11/26/2020 12:59 PM EST Progress Note Date:11/26/2020 Room:[facility]/505760 Patient Name:Will Jacinto Date of :1965 Age:55 [...] Radiology ACCESSION EXAM DATE/TIME PROCEDURE ORDERING PROVIDER [id number] 11/25/2020 15:08 EST CR Abdomen AP Lorenzo STAPLETON MICHAEL CPT code 48559 Reason For Exam (CR Abdomen AP) abd [...] Ultrasound ACCESSION EXAM DATE/TIME PROCEDURE ORDERING PROVIDER [id number] 11/25/2020 10:38 EST US Transvaginal MD CRAMER DIANA CHRISTINE CPT code 27557 Reason For Exam (US Transvaginal) AUB Report [...] PATIENT NAME: Will Jacinto DATE: 11/26/2020 PAGER: [phone] * Leonela Guerrero MD - 11/26/2020 12:35 PM EST Underwent uncomplicated PEUA, D&C, and IUD placement this morning. Megace discontinued as she is now being treated with levonorgestrel IUD. Will await pathology results and arrange outpatient follow up. CHECKER/STOCKER ONC will sign off at this time. Please re-consult with further questions or concerns. Discussed w/ Dr. Dejesus. * Michael Martin MD - 11/26/2020 10:24 AM EST Hospitalist Progress Note 11/26/2020 10:25 AM Subjective: Admit Date: 11/22/2020 PCP: Jared Guzman MD Interval History: No overnight issues. DIET FULL LIQUID; No intake/output data recorded. Date 11/26/20 - 11/26/209 Shift 5450-1725 0193-2639 24 Hour Total INTAKE P.O.(mL/kg/hr) 100 100 [...] 08/23/2020 No results found for: PHART, PO2ART, GWU2ROI No results for input(s): INR in the [...] 11. Debility Plan: Pt was transferred from [facility] Seen by Marine Tower Operator and had hysteroscopy today with biopsy done KUB showing possible ileus. Pt asking for food. Cont liquid diet for now. Add miralax. Monitor serial KUBs. Seen by GI -started reglan Cont PPI Endocrinology following for hyperglycemia Pt denied any chest pain. Troponin negative. Seen by cardiology Follow clinically. Michael Martin MD [facility] * Leonela Guerrero MD - 11/26/2020 6:17 AM EST Gynecologic Oncology Progress Note Date: 11/26/2020 Time: 6:17 AM Will Jacinto 55 y.o. transgender male admitted to [facility] for abdominal pain and uncontrolled T2DM, gynecology [...] injection 0-16 Units 0-16 Units Subcutaneous TID DASH Garibay DO 6 Units at 11/25/20 181 [...] Jacinto 55 y.o. transgender male admitted to [facility] for abdominal pain and uncontrolled T2DM, gynecology [...] determine long-term management Appreciate primary team and managing consultant clinical professor management of medical comorbidities. Most recent BGT [...] Jacinto : 1965 AGE: 55 y.o. Room/Bed: [facility] Admission Date: 11/22/2020 5:55 PM Consult Date: 11/24/20 Visit Date: 11/25/2020 Reason for Endocrine Consult: "out of control diabetic" Provider/Team Requesting Consult: Joann PCP: Jared Guzman MD Outpt Sweeper Operator Highways: yes, [facility] ASSESSMENT: T2DM uncontrolled w/ hyperglycemia, [...] doses (160-110-150 units TID) Outpt Follow Up-- [facility] Dr. Lee Appointment request sent to Endo office Staff: No, has appt in January SUBJECTIVE/HPI: CHIEF COMPLAINT: Abdominal Pain Type of DM: 2 Onset of DM: unclear Home DM Medication Regimen: U500 pen 160/110/150 TID; given via [facility]) DM control (last A1c/glucose data): Lab Results [...] Radiology ACCESSION EXAM DATE/TIME PROCEDURE ORDERING PROVIDER [id number] 11/22/2020 18:30 EST CR Chest Portable [id number] PHAM CPT code 86267 Reason For Exam (CR Chest Portable) SOB [...] Tomography ACCESSION EXAM DATE/TIME PROCEDURE ORDERING PROVIDER [id number] 11/22/2020 19:[address] Abdomen/Pelvis w/ IV [id number] JOEL PHAM Contrast (IV Onl CPT code 79621 Q9967 Reason For Exam (CT Abdomen/Pelvis w/ [...] lobe pulmonary nodule. Report Dictated on Workstation: ConnectToHome --- Final --- Dictating Physician: MD KELLEY [...] excessive vaginal clots, patient not seen by CHECKER/STOCKER ("due tohigh glucoses"). His glucose came down [...] in transgender male, hx of endometrial hyperplasia, CHECKER/STOCKER consulted 5. Morbid obesity, obstructive sleep apnea on no mask 6. S/p RLE AKA 7. HTN 8. HPL 9. Depression/schizophrenia/bipolar type 1 10. Hx of chronic LLE cellulitis/lymphedema 11. Debility Advance Directive: Full Code DVT prophylaxis lovenox 40 daily Discharge planning: SNF Active Problems: Hyperglycemia Diabetic hyperosmolar non-ketotic state (HCC) Resolved Problems: * No resolved hospital problems. * Kylah David MD * Covert, Neisha T, RN - 11/24/2020 11:43 AM EST Marquise Pocket Flap Creasing Machine Operator called me to patients bedside at 11:15am [...] on patient since it was called by licensing officer and Dr David will be at bedside [...] - 06/20/2019 10:09 AM EDT Progress Note [facility] Patient - Will Jacinto, Age - 53 y.o. - 1965 Room Number - [id number] [id number] Date of Admission - 06/14/2019 1:21 PM [...] the last 72 hours. BMP: Recent Labs 06/18/1941606/19/19 0344 06/20/19 0123 NA 135 135 139 K 4.2 5.7* 4.6 CL 100 101 105 CO2 26 24 26 BUN 29* 33* 30* CREATININE 1.53* 1.67* 1.18 GLUCOSE 108* 180* 85 Hepatic: Recent Labs 06/18/1941606/19/19 0344 06/20/19 0123 ALKPHOS 94 126 124 ALT [...] Specialists 06/20/2019 3:22 PM * Kyaw Waddell, DO - 06/20/2019 8:32 AM EDT ENDOCRINOLOGY PROGRESS NOTE Patient: Will Jacinto Unit/Bed:[id number] Date of : 1965 Admit date: 06/14/2019 [...] last 72 hours. Hepatic: Recent Labs 06/20/19 012 ALKPHOS 124 ALT 57 AST 62* PROT [...] Effort normal and breath sounds normal. Musculoskeletal: Boo at r AKA are intact Faint erythema [...] radiology, and other reports. I reviewed the SHAKER REPAIRER/resident's note and agree with the documented findings [...] per protocol. Noted likely DC back to [place]. Anticipated homegoing regimen: U-500 160-125-125 TID (given different diet at the [place]). FU with Endocrinology outpatient - pt prefers closer to [place]. Time spent with patient over 51% total time 25 minutes which includes review of records, counseling, management, and coordination of care as documented in note. * Davie Frankel MD - 06/19/2019 11:56 AM EDT Hospitalist Progress Note 06/19/2019 11:57 AM [phone]: Please page me for patient care issues. [phone]: Please page IMS night Hospitalist for any issues. Subjective: Admit Date: 06/14/2019 PCP: Jared Guzman MD Room#: [id number] Interval History: No new issues per pt [...] BMP: Recent Labs 06/17/19 0409 06/17/19 1310 06/18/1941606/19/19 0344 NA 134* -- 135 135 K [...] - 06/19/2019 9:46 AM EDT Progress Note [facility] Patient - Will Jacinto, Age - 53 y.o. - 1965 Room Number - [id number] N - [id number] Date of Admission - 06/14/2019 1:21 PM [...] Specialists 06/19/2019 2:08 PM * Elle Knutson, 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 SPECIALIST - 06/19/2019 9:24 AM EDT Physical Therapy Facility/Department: [facility] Daily Treatment Note NAME: Will Jacinto : 1965 Date of Service: 06/19/2019 Discharge Recommendations: Subacute/Intermediate Facility Assessment Body structures, Functions, Activity limitations: [...] history that includes Abscess Drainage (Right, 09/09/2018); Saffell tooth extraction; Dilation and curettage of uterus [...] 1965 Date of Service: 06/19/2019 Discharge Recommendations: Subacute/Intermediate Facility Assessment Performance deficits / Impairments: Decreased functional mobility ;Decreased ADL status;Decreased ROM;Decreased strength;Decreased safe awareness;Decreased cognition;Decreased endurance;Decreased balance;Decreased coordination Assessment: OT eval completed. Pt presents with above deficits limitng functional indep. Pt is a falls and safety risk. Recommend SNF upon discharge to maximize indep and safety with ADL and transfers. Prognosis: Fair Decision Making: Medium Complexity Exam: [facility] OT Education: OT Role;Plan of Care;Transfer Training;Orientation [...] history that includes Abscess Drainage (Right, 09/09/2018); Saffell tooth extraction; Dilation and curettage of uterus [...] Lives With: Other (comment) Type of Home: Facility([facility]) Home Layout: One level Home Access: Level entry Bathroom Shower/Tub: Walk-in shower, Shower chair with back Bathroom Toilet: Handicap height Bathroom Equipment: Grab bars in shower, Shower chair Bathroom Accessibility: Wheelchair accessible Home Equipment: 4 wheeled walker, Electric scooter, Wheelchair-manual Receives Help From: sewage plant attendant ADL Assistance: Needs assistance Homemaking Assistance: (provided by facility) Homemaking Responsibilities: No Ambulation Assistance: Independent(has been using wc 3-4 years) Transfer Assistance: Independent Active Bowling Or Skating Front Desk Clerk: No Patient's Bowling Or Skating Front Desk Clerk Info: facility, [facility] transport Mode of Transportation: Bus, Van Education: [...] Home Management Training, Cognitive/Perceptual Training OutComes Score [facility] Daily Activity Inpatient How much help for putting on and taking off regular lower body clothing?: Total How much help for Bathing?: A Lot How much help for Toileting?: Total How much help for putting on and taking off regular upper body clothing?: A Lot How much help for taking care of personal grooming?: A Little How much help for eating meals?: None [facility] Inpatient Daily Activity Raw Score: 13 [facility] Inpatient ADL T-Scale Score : 32.03 ADL [...] Plan of Care supervision is transferred to [facility] Occupational Therapist. Pt requires skill of 2 therapists for safety and positioning. Linda Cameron OTR/L * Kerri Morales MD - 06/19/2019 8:16 AM EDT Department of Internal Medicine Section of Endocrinology Resident Progress Note SUBJECTIVE: Admit date: 06/14/2019 Admitted w/: Right foot wound requiring AKA Original Endocrine Consult date: 06/15/19 OutPt Sweeper Operator Highways: None Lab Results Component Value Date LABA1C [...] Range: >60 mL/min 38.9 EGFR IF NonAfrican Tajik Latest Ref Range: >60 mL/min 32.1 Glucose [...] to be determined. Please page the on-call Sweeper Operator Highways if there arequestions regarding Endocrine DC recommendations. If there are any questions or concerns related to the info please page the communications designer managing consultant clinical professor directly. On-Call information can be found in the [facility] Directory. We appreciate the opportunity to participate [...] this progress note please page the oncall managing consultant clinical professor directly. On-Call information can be found in the [employer] Directory. We can also be reached by [employer] communication system. We appreciate the opportunity to [...] EDT Hospitalist Progress Note 06/18/2019 2:31 PM [phone]: Please page me for patient care issues. [phone]: Please page IMS night Hospitalist for any issues. Subjective: Admit Date: 06/14/2019 PCP: Jared Guzman MD Room#: [id number] Interval History: Patient seen and examined No [...] -- 10 LIVER PROFILE: Recent Labs 06/16/19 03506/16/19 1526 06/17/19 0409 06/18/19 041 AST 29 -- 34 48* ALT 28 [...] of Hospitalist Medicine Inpatient Medical Services PAGER: [phone] * Allison Coleman, KAYLA, LD - 06/18/2019 1:14 PM EDT Nutrition [...] he is still ordering & consuming meals. 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 SPECIALIST, he was a resident at [facility]. At [place], he reports receiving ProStat (protein modular) and [...] High Nutrient Needs: Estimated Daily Total Kcal: 8359-8278 (25-30 kcals/kg IBW) Estimated Daily Protein (g): [...] 380 lb (172.4 kg)(Per pt report ) Dodge Body Wt: 122 lb (55.3 kg)(Adjusted IBW based on R AKA ), % Dodge Body 309% Adjusted Body Wt: , body [...] - 06/18/2019 9:28 AM EDT Progress Note [facility] Patient - Will Jacinto, Age - 53 y.o. - 1965 Room Number - [id number] [facility] - [id number] Date of Admission - 06/14/2019 1:21 PM [...] Oral Nightly colistimethate (COLY-MYCIN) IVPB 1.69 mg/kg (Dodge) Intravenous Q8H insulin regular 0-16 Units Subcutaneous TID AC sodium chloride flush 10 mL Intravenous 2 times per day enoxaparin 40 mg Subcutaneous Daily vancomycin 2,000 mg Intravenous Q12H dextrose LABS: CBC: Recent Labs 06/16/198 06/16/19 0641 06/17/19 0409 WBC disregard* 6.7 [...] is being seen by wound care at [facility] already. Original Endocrine Consult date: 06/15/19 OutPt Sweeper Operator Highways: none Lab Results Component Value Date LABA1C [...] 5 % 100 mL IVPB, 1.69 mg/kg (Dodge), Intravenous, Q8H insulin regular (HUMULIN R;NOVOLIN R) [...] to be determined. Please page the on-call Sweeper Operator Highways if there arequestions regarding Endocrine DC recommendations. If there are any questions or concerns related to the info in this progress note please page the oncall managing consultant clinical professor directly. On-Call information can be found in the [facility] Directory. We appreciate the opportunity to participate [...] Clemons MD - 06/18/2019 6:13 AM EDT [place] [address] [place] [address] Dept: [phone] Loc: [phone] Orthopedic Progress Note Name: Will Jacinto Date:06/18/2019 [...] an outpatient in 2 weeks please call [phone] to make an appointment Will sign off-=call with questions * Jayson Hawthorne MD - 06/17/2019 2:43 PM EDT Progress Note [facility] Patient - Will Jacinto, Age - 53 y.o. - 1965 Room Number - [id number] N - [id number] Date of Admission - 06/14/2019 1:21 PM [...] Oral Nightly colistimethate (COLY-MYCIN) IVPB 1.69 mg/kg (Dodge) Intravenous Q8H insulin regular 0-16 Units Subcutaneous [...] midfoot with some midfoot Jayson Hawthorne MD [facility] 06/17/2019 2:44 PM * Crystal Mullins MD - 06/17/2019 1:15 PM EDT Hospitalist Progress Note 06/17/2019 1:16 PM [phone]: Please page me for patient care issues. [phone]: Please page IMS night Hospitalist for any issues. Subjective: Admit Date: 06/14/2019 PCP: Jared Guzman MD Room#: [id number] Interval History: Patient seen and examined No [...] Oral Nightly colistimethate (COLY-MYCIN) IVPB 1.69 mg/kg (Dodge) Intravenous Q8H insulin regular 0-16 Units Subcutaneous TID AC sodium chloride flush 10 mL Intravenous 2 times per day enoxaparin 40 mg Subcutaneous Daily vancomycin 2,000 mg Intravenous Q12H LABS: CBC: Recent Labs 06/15/1942206/16/19 0358 06/16/19 0641 06/17/19 0409 WBC 6.6 disregard* 6.7 13.3* RBC 3.64* disregard* 3.71* 3.26* HGB 8.8* disregard* 8.8* 7.6* HCT 27.2* disregard* 28.2* 24.8* MCV 74.8* disregard* 76.0* 76.1* RDW 22.9* disregard* 22.9* 22.4* PLT 353 -- 372 403 BMP: Recent Labs 06/15/19 04206/16/19 0358 06/17/19 0409 NA 135 131* 134* [...] of Hospitalist Medicine Inpatient Medical Services PAGER: [phone] * Sera Kraus, PT - 06/17/2019 10:32 AM EDT Physical Therapy Facility/Department: [facility] Initial Assessment NAME: Will Jacinto : 1965 Date of Service: 06/17/2019 Discharge Recommendations: Subacute/Intermediate Facility Assessment Body structures, Functions, Activity limitations: [...] history that includes Abscess Drainage (Right, 09/09/2018); Saffell tooth extraction; Dilation and curettage of uterus [...] Lives With: Other (comment) Type of Home: Facility([facility]) Home Layout: One level Home Access: Level entry Bathroom Shower/Tub: Walk-in shower, Shower chair with back Bathroom Toilet: Handicap height Bathroom Equipment: Grab bars in shower, Shower chair Bathroom Accessibility: Wheelchair accessible Home Equipment: 4 wheeled walker, Electric scooter, Wheelchair-manual Receives Help From: sewage plant attendant ADL Assistance: Needs assistance Homemaking Assistance: (provided by facility) Homemaking Responsibilities: No Ambulation Assistance: (non-ambulatory x3-4 years, uses wc) Transfer Assistance: Independent Active Bowling Or Skating Front Desk Clerk: No Patient's Bowling Or Skating Front Desk Clerk Info: [facility], [facility] transport Mode of Transportation: Bus, Van Education: [...] Inpatient Mobility Raw Score : 6 (06/17/191031) [facility] Inpatient T-Scale Score : 23.55 (06/17/191031) Mobility [...] Plan of Care supervision is transferred to [facility] Re[facility] Department Physical Therapist. Goals and/or treatment plan was established in collaboration with patient/family/other representatives. Sera Kraus PT * Asuncion Garibay DO - 06/17/2019 9:13 AM EDT Department of Internal Medicine Section of Endocrinology Attending Progress Note SUBJECTIVE: Admit date: 06/14/2019 Admitted w/: Chief Complaint Patient presents with Wound Check Patient sent over for evaluation for worsening leg infections, right lower leg is worse. he is being seen by wound care at [facility] already. Original Endocrine Consult date: 06/15/19 OutPt Sweeper Operator Highways: none Lab Results Component Value Date LABA1C [...] 5 % 100 mL IVPB, 1.69 mg/kg (Dodge), Intravenous, Q8H insulin regular (HUMULIN R;NOVOLIN R) [...] to be determined. Please page the on-call Sweeper Operator Highways if there arequestions regarding Endocrine DC recommendations. If there are any questions or concerns related to the info in this progress note please page the oncall managing consultant clinical professor directly. On-Call information can be found in the [facility] Directory. We appreciate the opportunity to participate [...] Clemons MD - 06/17/2019 5:29 AM EDT [facility] [facility] [address] [place] [address] Dept: [phone] Loc: [phone] Orthopedic Progress Note Name: Will Jacinto Date:06/17/2019 Attending:Jayesh Jordan MD Subjective JB. Dressing fell off during night. Unable to get back on. Objective Vitals: Vitals: 06/16/19 2330 06/16/19 2345 06/17/19 0000 06/17/19 0028 BP: (!) 123/90 (!) 90/57 (!) 118/54 109/84 Pulse: 81 82 81 90 Resp: 18 Temp: 98.1 F (36.7 C) 97.2 [...] an outpatient in 2 weeks please call [phone] to make an appointment * Crystal Mullins MD - 06/16/2019 4:12 PM EDT Hospitalist Progress Note 06/16/2019 4:12 PM [phone]: Please page me for patient care issues. [phone]: Please page IMS night Hospitalist for any issues. Subjective: Admit Date: 06/14/2019 PCP: Jared Guzman MD Room#: [id number] Interval History: Patient seen and examined No [...] Oral Nightly colistimethate (COLY-MYCIN) IVPB 1.69 mg/kg (Dodge) Intravenous Q8H insulin regular 0-16 Units Subcutaneous [...] of Hospitalist Medicine Inpatient Medical Services PAGER: [phone] * Asuncion Garibay, - 06/16/2019 3:23 PM EDT Department of Internal Medicine Section of Endocrinology Attending Progress Note SUBJECTIVE: Admit date: 06/14/2019 Admitted w/: Chief Complaint Patient presents with Wound Check Patient sent over for evaluation for worsening leg infections, right lower leg is worse. he is being seen by wound care at [facility] already. Original Endocrine Consult date: 06/15/19 OutPt Sweeper Operator Highways: none Lab Results Component Value Date LABA1C [...] 5 % 100 mL IVPB, 1.69 mg/kg (Dodge), Intravenous, Q8H insulin regular (HUMULIN R;NOVOLIN R) [...] his operating room procedure and returns to [place] is a lot of diet and we [...] to be determined. Please page the on-call Sweeper Operator Highways if there arequestions regarding Endocrine DC recommendations. If there are any questions or concerns related to the info in this progress note please page the oncall managing consultant clinical professor directly. On-Call information can be found in the [employer] Directory. We appreciate the opportunity to participate [...] - 06/16/2019 12:25 PM EDT Progress Note [facility] Patient - Will Jacinto, Age - 53 y.o. - 1965 Room Number - [id number] [facility] [id number] [id number] Date of Admission - 06/14/2019 1:21 PM [...] Oral Nightly colistimethate (COLY-MYCIN) IVPB 1.69 mg/kg (Dodge) Intravenous Q8H insulin regular 0-16 Units Subcutaneous [...] Asuncion Garibay DO 8:38 AM 06/16/19 * Srea Kraus, PT - 06/16/2019 7:52 AM EDT Physical Therapy R AKA surgery now scheduled for today. Will follow. * Sanjana Oden - 06/16/2019 7:10 AM EDT Occupational Therapy OT Hold Note Pt scheduled for R AKA today. Will hold at this time and re-attempt after surgery. Sanjana Oden, S/OT * Pawan Cartagena MD - 06/16/2019 5:47 AM EDT [facility] [address] [facility] [address] Dept: [phone] Loc: [phone] Orthopedic Progress Note Name: Will Jacinto Date:06/16/2019 Attending:MD Vonda Dumont JB. No events o/n. Patient prepared for [...] Carey MD - 06/15/2019 6:32 AM EDT [facility] [address] [place] [address] Dept: [phone] Loc: [phone] Orthopedic Progress Note Name: Will Jacinto Date:06/15/2019 [...] Physician Discharge Summary Patient ID: Will Jacinto [id number] 54 y.o. 1965 Admit date: 09/17/2020 Discharge date and time: 09/28/20 Admitting Physician: Nabil Hill, DO Discharge Physician: NABIL HILL MD Admission [...] feel he is stable to return to [place] on this current treatment regimen with smaller [...] transgender male, biologically female, [facility] after abdominal pain, out of control glucose readings and reported mental status change. However, EMS in the hospital reported that he was alert and oriented x3, however, he says that recently he has had increasing abdominal distention and distress and he noticed that his glucoses have been harder and harder to control. Pt was admitted to [facility]. Pt had dysfunctinal uterine bleeding and transferred to [facility] for Marine Tower Operator eval. Also had ab pain and found to have ileus. Seen by GI and recommended reglan. Pt had BMs. abd pain better. Advance diet to GI soft Seen by Marine Tower Operator and had hysteroscopy with biopsy done KUB [...] 08/23/2020 No results found for: PHART, PO2ART, LEF4QFY No results for input(s): INR in the [...] Radiology ACCESSION EXAM DATE/TIME PROCEDURE ORDERING PROVIDER [id number] 11/27/2020 08:28 EST CR Abdomen AP MD MARTIN KHALED CPT code 61686 Reason For Exam (CR Abdomen AP) ileus [...] Report Dictated on --- Final --- Dictated: :38 am Dictating Physician: MD HILL JASON Signed Date and Time: 11/27/2020 8:40 am Signed by:MD HILL JASON Transcribed Date and Time: 11/27/2020 8:38 Xr Abdomen (kub) (single Ap View) Result Date: 11/25/2020 Patient Name: WILL JACINTO Diagnostic Radiology ACCESSION EXAM DATE/TIME PROCEDURE ORDERING PROVIDER [id number] 11/25/2020 15:08 EST CR Abdomen AP Lorenzo STAPLETON MICHAEL CPT code 22978 Reason For Exam (CR Abdomen AP) abd [...] Radiology ACCESSION EXAM DATE/TIME PROCEDURE ORDERING PROVIDER [id number] 11/22/2020 18:30 EST CR Chest Portable [id number] PHAM CPT code 72562 Reason For Exam (CR Chest Portable) SOB [...] Tomography ACCESSION EXAM DATE/TIME PROCEDURE ORDERING PROVIDER [id number] 11/22/2020 19:[address] Abdomen/Pelvis w/ IV [id number] -JOEL NELSON Contrast (IV Onl CPT code 65920 Q9967 Reason For Exam (CT Abdomen/Pelvis w/ [...] Ultrasound ACCESSION EXAM DATE/TIME PROCEDURE ORDERING PROVIDER [id number] 11/25/2020 10:38 EST US Transvaginal MD CRAMER DIANA CHRISTINE CPT code 28778 Reason For Exam (US Transvaginal) AUB Report [...] Will Jacinto "Maria Luisa" Home Medication Instructions JORDYN:[id number] Printed on:11/28/20 0911 Medication Information acetaminophen (TYLENOL) [...] g by mouth daily Consults: GI, cardiology, Marine Tower Operator Disposition: Patient discharged in stable condition. Greater [...] TO GIIP CONSULT TO CARDIOLOGYIP CONSULT TO TUFTING SUPERVISOR Surgeries/procedures Performed: Treatments: Discharge Plan/Disposition: Home [...] U-500 KWIKPEN) 500 UNIT/ML SOPN concentrated injection inq064 units before breakfast, 110 units before lunch, [...] vaginal bleeding--pelvic US shows increased thickening of endometrium--CHECKER/STOCKER recommends further acute eval by CHECKER/STOCKER ONC--Dr Walsh has seen pt. Previously & recommended hysterectomy, which was postponed at that time due to other medical issues--blood sugar now controlled SIGNIFICANT DIAGNOSTIC STUDIES: Ct---pelvic US CONSULTANTS: CHECKER/STOCKER--cardio RECOMMENDED NEXT STEPS: To [facility]--IMS & Dr Walsh (CHECKER/STOCKER ONC) ---resume aspirin when bleeding issues resolved DISCHARGE MEDICATIONS: Will Jacinto "Maria Luisa" Home Medication Instructions JORDYN:[id number] Printed on:11/25/20 8069 Medication Information acetaminophen (TYLENOL) 325 MG tablet [...] Complexity: follow up within 7-14 calendar days (22733) [] Severe Complexity: follow up within 7 calendar days (85612) FOLLOW UP TESTING, PENDING RESULTS OR REFERRALS AT TRANSITIONAL CARE VISIT: [] Yes [] No PENDING STUDIES: No DISPOSITION: Transfer to Acute Care Hospital FACILITY/HOME CARE AGENCY NAME: Follow up with Jared Guzman MD [address] [facility] [address] INSTRUCTIONS TO MA/SW DISCHARGE TIME: SIGNED: ART STAPLETON MD 11/25/2020, 1:49 PM documented in this encounter Chief Complaint and Reason for Visit Chief Complaint [facility] WOR K Chief Complaint [facility] WOR K [facility] WORK [facility] Chief Complaint [facility] WOR K [facility] Chief Complaint [facility]WORK Chief Complaint [facility]WORK LABWORK Chief Complaint [facility] LABWORK LABWORK LABWORK Chief Complaint LABWORK [facility] LABWORK [facility] WORK Chief Complaint [facility] LABWORK [facility] WORK [facility]WORK Chief Complaint [facility] LABWORK LABWORK LABWORK LABWORK Chief Complaint LABWORK LABWORK [facility] LAB WORK LABWORK [facility] LABWORK Chief Complaint [facility] WOR K LABWORK [facility] LABWORK LABWORK [facility] LAB WORK Chief Complaint LABWORK [facility] LABWORK LABWORK [facility] LAB WORK [facility] LAB WORK Chief Complaint [facility] LABWORK LABWORK [facility] LAB WORK [facility] LABWORK [facility] LAB WORK Chief Complaint LABWORK [facility] LAB WORK [facility] LABWORK [facility] LAB WORK LABWORK Chief Complaint LABWORK [facility] LAB WORK [facility] LABWORK [facility] LAB WORK [facility] LAB WORK LABWORK LABWORK Chief Complaint [facility] LAB WOR K [facility] LABWORK [facility] LAB WORK [facility] WORK LABWORK LABWORK LABWORK LABWORK Chief Complaint [facility] LAB WOR K [facility]WORK [facility] WORK [facility] WORK LABWORK LABWORK LABWORK LABWORK LABWORK Chief Complaint Admit Date LABWORK September 22, 2024 5:00am LABWORK October 30, 2024 5:00am [facility] WORK November 10, 2024 9:46am [facility] WORK November 30, 2024 5:00am [facility] WORK December 05, 2024 4:00am [facility] WORK December 27 5:00am Chief Complaint Admit Date [facility] WORK November 10, 2024 9:46am [facility] WORK November 30, 2024 5:00am [facility] WORK December 05, 2024 4:00am [facility] WORK December 27 5:00am [facility] WORK February 07, 2025 5: 00am Chief Complaint Admit Date [facility] WORK December 27 5:00am [facility] WORK February 07, 2025 5: 00am [facility] WORK February 26, 2025 4 :00am Reason for Referral Specialty Diagnoses / Procedures Referred By Contac t Referred To Contact Oral Surgery Diagnoses Dental caries Jared Guzman [address] [place] [address] [facility] ORAL SURGERY 07 [place] [address] Referral ID Status Reason Start Date Expiration Date V isits Requested Visits Authorized [id number] Authorized 01/26/2023 01/27/2024 3 3 Scheduling Instructions Please call the gas golf [facility] at [facility] at to schedule an appointment if one was not made for you today. Comments EXT #9, 12 Specialty Diagnoses / Procedures Referred By Contac t Referred To Contact Caridad Evans MD [address] [place] [address] Referral ID Status Reason Start Date Expiration Date V isits Requested Visits Authorized [id number] Pending Review 1 1 Specialty Diagnoses / Procedures Referred By Contac t Referred To Contact Radiology Diagnoses Nausea with vomiting, unspecified Procedures NM gastric emptying solid Elda Reaves (Kelley) [address] [place] [address] Referral ID Status Reason Start Date Expiration Date V isits Requested Visits Authorized [id number] Authorized 11/24/2023 11/23/2024 3 3 Referral ID Status Reason Start Date Expiration Date V isits Requested Visits Authorized [id number] Pending Review 11/24/2023 11/23/2024 3 3 Specialty Diagnoses / Procedures Referred By Contac t Referred To Contact Radiology Diagnoses Lung nodule Procedures CT chest wo IV contrast Richard, Herber, COMMUNITY SPORTS COORDINATOR - [employer] [address] [place] [address] Referral ID Status Reason Start Date Expiration Date V isits Requested Visits Authorized [id number] Authorized 02/11/2024 02/10/2025 1 1 Specialty Diagnoses / Procedures Referred By Contac t Referred To Contact Radiology Diagnoses Solitary pulmonary nodule Procedures CT chest wo IV contrast Richard, Herber, COMMUNITY SPORTS COORDINATOR - [employer] [address] [place] [address] Referral ID Status Reason Start Date Expiration Date V isits Requested Visits Authorized [id number] Pending Review 02/11/2024 02/10/2025 1 1 Additional Source Comments INFORMATION SOURCE (unrecogn ized section and content) DATE CREATED AUTHOR 05/13/2018 [facility] DATE CREATED AUTHOR AUTHOR'S ORGANIZ ATION 05/18/2018 [facility] DATE CREATED AUTHOR AUTHOR'S ORGANIZ ATION 01/09/2019 [facility] DATE CREATED AUTHOR AUTHOR'S ORGANIZ ATION 11/29/2020 [facility] DATE CREATED AUTHOR AUTHOR'S ORGANIZ ATION 09/25/2021 [facility] DATE CREATED AUTHOR AUTHOR'S ORGANIZ ATION 02/04/2022 [facility] DATE CREATED AUTHOR AUTHOR'S ORGANIZ ATION 11/23/2023 [facility] DATE CREATED AUTHOR AUTHOR'S ORGANIZ ATION 07/31/2025 [facility] DATE CREATED AUTHOR AUTHOR'S ORGANIZ ATION 08/24/2025 [facility] (unrecognized sect ion and content) No Status Records Found Reason for Visit (unrecogniz ed section and content) Reason Comments Leg Pain patient had right AK A last week and has had pain in [facility] sent for eval d/t bloodwork results Reason Comments Abdominal Pain Reason Comments Abdominal Pain Vaginal Bleeding Nausea Reason Comments Wound Check Patient sent over fo r evaluation for worsening leg infections, right lower leg is worse. he is being seen by wound care at [facility] already. Reason Comments Follow-up DM2 [...] . Nabil Hill DO [address] [place] [address] [facility] 2e Telemetry [address] [place] [address] Referral ID Status Reason Start Date Expiration Date Visits Re quested Visits Authorized [id number] 1 1 Reason Comments Chest Pain Vomiting Specialty Diagnoses / Procedures Referred By Contac t Referred To Contact Diagnoses Chest pain Chest pain, unspecified type Procedures . Nabil Hill DO [address] [place] [address] [facility] 2e Telemetry [address] [place] [address] Reason Onset Date Comments Care Coordination 07/05/2023 ED Nuance Lung Nodule Reason Comments Nausea Pt brought in by EMS from [facility] with nausea/vomiting x1 day. +MALCOLM. States that [...] abdominal pain Procedures . Nabil Hill, [place] [address] [facility] Emergency Dept [address] [place] [address] Referral ID Status Reason Start Date Expiration Date Visits Re quested Visits Authorized [id number] 1 1 Reason Onset Date Comments Diabetes 08/30/2023 BGL Reason Onset Date Comments Diabetes 09/20/2023 BGL Specialty Diagnoses / Procedures Referred By Contac t Referred To Contact Diagnoses Hypoglycemia Procedures . Ricardo Spring MD [address] [address] [facility] [address] [place] [address] Referral ID Status Reason Start Date Expiration Date Visits Re quested Visits Authorized [id number] 1 1 Reason Comments Hypoglycemia Specialty Diagnoses / Procedures Referred By Contac t Referred To Contact Diagnoses Hypoglycemia Procedures . Ricardo Spring MD [address] [address] [facility] [address] [place] [address] Reason Onset Date Comments Advice Only 11/09/2023 Reason Onset Date Comments Diabetes 11/23/2023 BGL Reason Comments Flu Symptoms Specialty Diagnoses / Procedures Referred By Contac t Referred To Contact Radiology Diagnoses Nausea with vomiting, unspecified Procedures NM gastric emptying solid Elda Reaves (Kelley) [address] [facility] [place] [address] Referral ID Status Reason Start Date Expiration Date V isits Requested Visits Authorized [id number] Authorized 11/24/2023 11/23/2024 3 3 Reason Onset Date Comments Diabetes 12/28/2023 BGL Reason Comments Nausea Vomiting Pt arrived by EMS fr [facility] due to N/V for 1 month. Upon [...] Pain Vomiting Pt presents to er fr snf for nausea and abd pain. Pt presents aox4 speaking in full and complete sentences. Pt states he has been sick since 2 weeks prior. Pt has recent urinary catheter placed due t urinary retention per pt. Catheter placed 1 week ago. Reason Onset Date Comments Diabetes 12/06/2023 BGL Reason Comments Hypoglycemia Patient reports from [facility] for low blood sugar. Facility states that it was 48. Patient was fed and EMS sugar was 76. On arrival to room BGM was 102. Reason Comments Hyperglycemia Pt is sent from [facility] for low BGT. Pt reports [...] Abdominal Pain [facility] Pt presents with abd pain, diarrhea, chest pain. Pt presents aox4 speaking in full and complete sentences. Chest Pain Nausea Specialty Diagnoses / Procedures Referred By Contac t Referred To Contact Diagnoses Acute cholecystitis Procedures . Grace Ackerman MD [address] [place] [address] Phone: tel: fax: [facility] Cardiac Progressive Care Unit PCU [address] [place] [address] Phone: tel: Referral ID Status Reason Start Date Expiration Date Visits Re quested Visits Authorized [id number] 1 1 Reason Onset Date Comments Diabetes [...] of gallbladder without cholecystitis without obstruction Procedures [place] OFFICE/OUTPATIENT NEW HIGH MDM 60 MINUTES Rosy Ibarra, COMMUNITY SPORTS COORDINATOR - [employer] [address] [place] [address] Phone: tel:[phone] fax:[phone] [facility] - [address] [address] Phone: tel: fax: Referral ID Status Reason Start Date Expiration Date Visits Requested Visits Authorized [id number] Pending Review Specialty Services Required 12/01/2024 12/01/2025 [...] of right leg above knee (HCC) Procedures [place] OFFICE/OUTPATIENT NEW MODERATE MDM 45 MINUTES Jared Guzman [address] [place] [address] Phone: tel: fax: [facility] [place] [address] [place] [address] Phone: tel: fax: Referral ID Status Reason Start Date Expiration Date Visits Requested Visits Authorized [id number] Pending Review Eval and Treat 01/24/2025 01/24/2026 [...] Reason Onset Date Comments Diabetes 07/04/2025 BGL Reason Onset Date Comments Diabetes 07/18/2025 BGL Reason Onset Date Comments Diabetes 07/23/2025 BGL Reason Comments Diabetes Mellitus Follow up Reason Onset Date Comments Diabetes 07/27/2025 Ordered Prescriptions (unrec ognized section and content) [...] Inactive Member Role Status Dates Raj LEON, SHAKER REPAIRER-C Attending Provider Active Team Status: Inactive Member Role Status Dates Jared Guzman Attending Provider Active Health Worker Relationship Specialty Start Date End Date EsperanzalolaJared [address] [place] [phone] PCP - General 04/25/19 Health Worker Relationship Specialty Start Date End Date Jared Guzman [address] [place] [address] PCP - General 04/25/19 Health Worker Relationship Specialty Start Date End Date EsperanzalolaJared [address] [place] [phone] PCP - General 04/25/19 Health Worker Relationship Specialty Start Date End Date ThomasJared [address] [place] [address] PCP - General 04/25/19 Health Worker Relationship Specialty Start Date End Date Jared Guzman [facility] [place] [address] PCP - General 04/25/19 Health Worker Relationship Specialty Start Date End Date Jared Guzman [address] [place] [phone] PCP - General 04/25/19 Health Worker Relationship Specialty Start Date End Date Jared Guzman [address] [place] [phone] PCP - General 04/25/19 Health Worker Relationship Specialty Start Date End Date Jared Guzman [address] [place] [phone] PCP - General 04/25/19 Health Worker Relationship Specialty Start Date End Date Jared Guzman [address] [place] [phone] PCP - General 04/25/19 Health Worker Relationship Specialty Start Date End Date Jared Guzman [address] [place] [phone] PCP - General 04/25/19 Health Worker Relationship Specialty Start Date End Date Jared Guzman [address] [place] [phone] PCP - General 04/25/19 Health Worker Relationship Specialty Start Date End Date Jared Guzman [address] [place] [phone] PCP - General 04/25/19 Health Worker Relationship Specialty Start Date End Date Jared Guzman [address] [place] [address] PCP - General 04/25/19 Health Worker Relationship Specialty Start Date End Date Jared Guzman [address] [place] [address] PCP - General 04/25/19 Health Worker Relationship Specialty Start Date End Date Jared Guzman [address] [place] [address] PCP - General 04/25/19 Health Worker Relationship Specialty Start Date End Date Jared Guzman [address] [place] [address] PCP - General 04/25/19 Health Worker Relationship Specialty Start Date End Date Jared Guzman [address] [place] [address] PCP - General 04/25/19 Health Worker Relationship Specialty Start Date End Date Jared Guzman [address] [place] [address] PCP - General 04/25/19 Health Worker Relationship Specialty Start Date End Date Jared Guzman [address] [place] [address] PCP - General 04/25/19 Health Worker Relationship Specialty Start Date End Date Jared Guzman [address] [place] [address] PCP - General 04/25/19 Health Worker Relationship Specialty Start Date End Date Jared Guzman [address] [place] [phone] PCP - General 04/25/19 Health Worker Relationship Specialty Start Date End Date Jared Guzman [address] [place] [address] PCP - General 04/25/19 Health Worker Relationship Specialty Start Date End Date Jared Guzman [address] [place] [phone] PCP - General 04/25/19 Health Worker Relationship Specialty Start Date End Date Jared Guzman [address] [place] [phone] PCP - General 04/25/19 Health Worker Relationship Specialty Start Date End Date Jared Guzman [address] [place] [phone] PCP - General 04/25/19 Health Worker Relationship Specialty Start Date End Date Jared Guzman [address] [place] [phone] PCP - General 04/25/19 Health Worker Relationship Specialty Start Date End Date Jared Guzman [address] [place] [address] PCP - General 04/25/19 Health Worker Relationship Specialty Start Date End Date Jared Guzman [address] [place] [address] PCP - General 04/25/19 Health Worker Relationship Specialty Start Date End Date Jared Guzman [address] [place] [phone] PCP - General 04/25/19 Health Worker Relationship Specialty Start Date End Date Jared Guzman [address] [place] [address] PCP - General 04/25/19 Health Worker Relationship Specialty Start Date End Date Jared Guzman [address] [place] [address] PCP - General 04/25/19 Health Worker Relationship Specialty Start Date End Date Jared Guzman [address] [place] [phone] PCP - General 04/25/19 Health Worker Relationship Specialty Start Date End Date Jared Guzman [address] [place] [phone] PCP - General 04/25/19 Health Worker Relationship Specialty Start Date End Date Jared Guzman [address] [place] [phone] PCP - General 04/25/19 Health Worker Relationship Specialty Start Date End Date Jared Guzman [address] [place] [phone] PCP - General 04/25/19 Health Worker Relationship Specialty Start Date End Date Jared Guzman [address] [place] [phone] PCP - General 04/25/19 Health Worker Relationship Specialty Start Date End Date Jared Guzman [address] [place] [phone] PCP - General 04/25/19 Health Worker Relationship Specialty Start Date End Date Jared Guzman [address] [place] [address] PCP - General 04/25/19 Health Worker Relationship Specialty Start Date End Date Jared Guzman [address] PCP - General 04/25/19 Health Worker Relationship Specialty Start Date End Date Jared Guzman [address] [place], [place] [phone] PCP - General 04/25/19 Health Worker Relationship Specialty Start Date End Date Jared Guzman [address] [place] [phone] PCP - General 04/25/19 Health Worker Relationship Specialty Start Date End Date Jared Guzman [address] [place], [place] [phone] PCP - General 04/25/19 Health Worker Relationship Specialty Start Date End Date Jared Guzman [address] [place] [address] PCP - General 04/25/19 Health Worker Relationship Specialty Start Date End Date Jared Guzman [address] [place] [address] PCP - General 04/25/19 [facility] [employer] [facility] [employer] Other Attendant 01/30/25 Health Worker Relationship Specialty Start Date End Date Jared Guzman [address] [place] [address] PCP - General 04/25/19 Alejandro Mandel APRN - CNP [address] [place] [address] Nurse Practitioner Nurse Practitioner 02/01/25 [facility] [employer] Other Attendant 01/30/25 Team Status: Inactive Member [...] December 05, 2024 End: December 05, 2024 Health Worker Relationship Specialty Start Date End Date Jared Guzman [address] [place] [address] PCP - General 04/25/19 Alejandro Mandel APRN - [employer] [address] [place] [address] Nurse Practitioner Nurse Practitioner 02/01/25 [employer] Other Attendant 01/30/25 Health Worker Relationship Specialty Start Date End Date Jared Guzman [address] [place] [address] PCP - General 04/25/19 Alejandro Mandel APRN - [employer] [address] [place] [address] Nurse Practitioner Nurse Practitioner 02/01/25 [employer] Other Attendant 01/30/25 Health Worker Relationship Specialty Start Date End Date Jared Guzman [address] [place] [address] PCP - General 04/25/19 Alejandro Mandel APRN - [employer] [address] [place] [address] Nurse Practitioner Nurse Practitioner 02/01/25 [employer] Other Attendant 01/30/25 Team Status: Inactive Member Role Status Dates Jared LEON Attending Provider Active Sta rt: February 07, 2025 End: February 07, 2025 Team Status: Active Member Role Status Dates Jared LEON Attending Provider Active Sta rt: February 26, 2025 Health Worker Relationship Specialty Start Date End Date Jared Guzman [address] [place] [address] PCP - General 04/25/19 Alejandro Mandel APRN - [employer] [address] [place] [address] Nurse Practitioner Nurse Practitioner 02/01/25 [employer] Other Attendant 01/30/25 Team Status: Inactive Member Role Status Dates Jared LEON Attending Provider Active Sta rt: February 26, 2025 End: February 26, 2025 Jared LEON Referring Provider Active Sta rt: February 26, 2025 End: February 26, 2025 Health Worker Relationship Specialty Start Date End Date Jared Guzman [address] [place] [phone] PCP - General 04/25/19 Alejandro Mandel APRN - [employer] [address] [place] [address] Nurse Practitioner Nurse Practitioner 02/01/25 [facility] Other Attendant 01/30/25 Health Worker Relationship Specialty Start Date End Date Jared Guzman [address] [place] [phone] PCP - General 04/25/19 Alejandro Mandel COMMUNITY SPORTS COORDINATOR - [employer] [address] [place] [address] Nurse Practitioner Nurse Practitioner 02/01/25 [employer] Other Attendant 01/30/25 Health Worker Relationship Specialty Start Date End Date Jared Guzman [address] [place] [address] PCP - General 04/25/19 Alejandro Mandel APRN - [employer] [address] [place] [address] Nurse Practitioner Nurse Practitioner 02/01/25 [employer] Other Attendant 01/30/25 Health Worker Relationship Specialty Start Date End Date Jared Guzman [address] [place] [address] PCP - General 04/25/19 Alejandro Mandel APRN - [employer] [address] [place] [address] Nurse Practitioner Nurse Practitioner 02/01/25 [employer] Other Attendant 01/30/25 Health Worker Relationship Specialty Start Date End Date Jared Guzman [address] [place] [address] PCP - General 04/25/19 Alejandro Mandel APRN - [employer] [address] [place] [address] Nurse Practitioner Nurse Practitioner 02/01/25 [facility] [employer] Other Attendant 01/30/25 Health Worker Relationship Specialty Start Date End Date Jared Guzman [address] [place] [address] PCP - General 04/25/19 Alejandro Mandel APRN - [employer] [address] [place] [address] Nurse Practitioner Nurse Practitioner 02/01/25 [facility] [employer] Other Attendant 01/30/25 Health Worker Relationship Specialty Start Date End Date Jared Guzman [address] [place] [address] PCP - General 04/25/19 Alejandro Mandel COMMUNITY SPORTS COORDINATOR - [employer] [address] [place] [address] Nurse Practitioner Nurse Practitioner 02/01/25 [employer] Other Attendant 01/30/25 Health Worker Relationship Specialty Start Date End Date Jared Guzman [address] [place] [address] PCP - General 04/25/19 Alejandro Mandel, COMMUNITY SPORTS COORDINATOR - [employer] [address] [place] [address] Nurse Practitioner Nurse Practitioner 02/01/25 [employer] Other Attendant 01/30/25 Health Worker Relationship Specialty Start Date End Date Jared Guzman [address] [place] [address] PCP - General 04/25/19 Alejandro Mandel APRN - CNP [address] [place] [address] Nurse Practitioner Nurse Practitioner 02/01/25 [facility] [employer] Other Attendant 01/30/25 Health Worker Relationship Specialty Start Date End Date Jared Guzman [address] [place] [address] PCP - General 04/25/19 Alejandro Mandel APRN - [employer] [address] [place] [address] Nurse Practitioner Nurse Practitioner 02/01/25 [employer] Other Attendant 01/30/25 Health Worker Relationship Specialty Start Date End Date Jared Guzman [address] [place] [address] PCP - General 04/25/19 Alejandro Mandel APRN - [employer] [address] [place] [address] Nurse Practitioner Nurse Practitioner 02/01/25 [facility] [employer] Other Attendant 01/30/25 Health Worker Relationship Specialty Start Date End Date Jared Guzman [address] [place] [address] PCP - General 04/25/19 Alejandro Mandel APRN - [employer] [address] [place] [address] Nurse Practitioner Nurse Practitioner 02/01/25 [employer] s[facility] Other Attendant 01/30/25 Scheduled Active and Recently [...] Robertson RN) 0900 (Given - Provider: David Lui, PASTORA) ARIPiprazole (Abilify) tablet 10 mg 10 mg, Oral, Daily, First dose on Wed06/28/23 at 0900 0720 (Not Given - Provider: Suzanne Sen RN - Reason: NPO) 0900 (Given - Provider: Suzanne Sen RN) 0846 (Given - Provider: David Lui, PASTORA) aspirin EC tablet 81 mg 81 mg, Oral, Daily, First dose on Wed06/28/23 at 0900, Do not crush, chew, or split. 0720 (Not Given - Provider: Suzanne Sen RN - Reason: NPO) 0900 (Given - Provider: Suzanne Sen RN) 0846 (Given - Provider: David Lui, PATSORA) atorvastatin (Lipitor) tablet 10 mg 10 mg, [...] Suzanne Sen RN) 0846 (Given - Provider: Dvaid Lui RN) FLUoxetine (PROzac) capsule 40 mg [...] Nightly, First dose on Wed06/28/23 at 2100 2028 (Given - Provider: Margo Alexis RN) insulin [...] Suzanne Sen RN)2144 (Given - Provider: Shaneka Robertson RN) 0900 (Given - Provider: David Lui RN) pantoprazole (ProtoNix) EC tablet 40 mg 40 mg, Oral, Daily before breakfast, First dose on Wed06/28/23 at 0900, Do not crush, chew, or split. 0700 (Not Given - Provider: Jackson Lopez RN - Reason: NPO) 0510 (Given - Provider: Margo Alexis RN) 0628 (Given - Provider: Shaneka Robertson, RN) polyethylene glycol (PEG) 3350 (Miralax) packet [...] Alexis RN)2138 (New Bag - Provider: Shaneka Robertson, PASTORA) PRN Medication Order 06/29/2023 06/30/2023 07/01/2023 acetaminophen [...] Alexis, PASTORA) 0510 (Given - Provider: Margo Alexis, PASTORA) Linked Groups Order Group 1: acetaminophen (Tylenol) [...] than 100.4 F (38 C), Starting on 06/28/23 at 0846
Administer if [...] 0850 (New Bag - Prov ider: Karlos Garcia, PASTORA)0950 (Stopped - Provider: Varsha Diez RN) PRN [...] Comment: Automatically canceled at discontinue of medication order)212 (Given - Provider: Ioana Barahona LPN) 0947 (Given - Provider: Kota Luque, PASTORA)2100 (Canceled Entry - Provider: Automatic Discharge Provider - Comment: Automatically canceled at discontinue of medication order) dextrose 50 % solution 50 mL (COMPLETED) 50 mL, IntraVENous, Once, On Wed08/17/23 at 1755, For 1 dose 1758 (Given - Provider: Hebert Hill, PASTORA) dilTIAZem CD (Cardizem CD) 24 hr capsule [...] Figueroa RN) 1201 (Given - Provider: Flor Alonso, PASTORA)2001 (Given - Provider: Ioana aBrahona LPN) 0940 (Given - Provider: Kota uLque, PASTORA)2100 (Canceled Entry - Provider: Automatic Discharge Provider - Comment: Automatically canceled at discontinue of medication order) fluconazole (Diflucan) tablet 200 mg 200 mg, Oral, Daily, First dose on Wed08/18/23 at 0955, For 14 days, Coverage: Homa albicans, Infection Site: Vaginal, Skin 1159 (Given - Provider: Flor Alonso, RN) 0940 (Given - Provider: Kota Luque, [...] Wed08/18/23 at 0900 0828 (Given - Provider: Oilmpia Mustafa RN) 0940 (Given - Provider: Kota [...] 1342 (Given - Provider: Hebert Hill, PASTORA) metoclopramide (Reglan) tablet 10 mg 10 [...] Kota Luque, PASTORA)1225 (Given - Provider: Kota Luque RN)1641 (Given [...] gastric irritation. Do not crush or chew. 2329 (Given - Provider: Kaci Figueroa RN) 1956 [...] using Glucostabilizer, dose as instructed per system. 1809 (Given - Provider: Hebert Hill, PASTORA) glucagon (human recombinant) injection 1 mg 1 [...] Chinchilla RN) 913 (Given - Provider: Gricelda Harding, PASTORA)2007 (Given - Provider: Lashawn Chinchilla, PASTORA) dilTIAZem CD (Cardizem CD) 24 hr capsule 180 mg 180 mg, Oral, Daily, First dose on Wed10/07/23 at 1700, Do not crush, chew, or split. 0944 (Given - Provider: Joyce Moore LPN) 0915 (Given - Provider: Gricelda Harding RN) enoxaparin (Lovenox) syringe 30 mg 30 mg, SubCUTAneous, Every 12 hours scheduled (2 times per day), First dose on Wed10/07/23 at 2100, Indication of Use: Prophylaxis-DVT/PE 0944 (Given - Provider: Joyce Moore LPN)2044 (Given - Provider: Lashawn Chinchilla RN) 0914 (Given - Provider: Gricelda Harding RN)2007 (Given [...] LPN)2044 (Given - Provider: Lashawn Chinchilla RN) 0915 [...] (after last modification) on Wed10/14/23 at 2100 2045 (Given - Provider: Lashawn [...] Insulin pen 1217 (Given - Provider: Gricelda Harding, PASTORA) insulin regular (HumuLIN R U-500) CONCENTRATED [...] 0900 (Dose Auto Held - Provider: Marcio Moore MD) 0900 (Dose Auto Held - Provider: Marcio Moore MD) 212 (Unheld by provider - Provider: Automatic Discharge Provider) megestrol (Megace) tablet 20 mg 20 mg, Oral, 2 times daily, First dose on Gabi 10/07/23 at 2100, HAZARDOUS - Handle with care 943 (Given - Provider: Joyce Moore LPN)2045 (Given - Provider: Lashawn Chinchilla RN) 913 (Given - Provider: Gricelda Harding RN)2124 (Given - Provider: Lashawn Chinchilla RN) melatonin tablet 10 mg 10 mg, Oral, Nightly, First dose on Gabi 10/07/23 at 2100 2044 (Given - Provider: Lashawn Chinchilla RN) 2007 (Given - Provider: Lashawn Chinchilla RN) metoprolol tartrate (Lopressor) tablet 25 mg 25 mg, Oral, 2 times daily, First dose on Wed10/07/23 at 2100 0943 (Given - Provider: Joyce Moore LPN)2048 (Given - Provider: Lashawn Chinchilla RN) 0915 (Given - Provider: Gricelda Harding, PASTORA)2007 (Given - Provider: Lashawn Chinchilla RN) pantoprazole (ProtoNix) EC tablet 40 mg 40 mg, Oral, Daily before breakfast, First dose on Wed10/08/23 at 0700, Do not crush, chew, or split. 0619 (Given - Provider: Roz Su RN) 06 (Given - Provider: Lashawn Chinchilla RN) polyethylene glycol (PEG) 3350 (Miralax) packet 17 g 17 g, Oral, Daily, First dose on Wed10/07/23 at 1900 0943 (Given - Provider: Joyce Moore LPN) 0914 (Given - Provider: Gricelad Harding RN) sodium chloride 0.9% (NS) flush [...] 6 hours PRN, nausea, vomiting, Starting on 10/10/23 at 1729, 2nd-line if Zofran ineffective. sodium [...] Calderon Lopez RN)0616 (Stopped - Provider: Calderon Lopez, RN) ondansetron (Zofran) injection 4 mg (COMPLETED) [...] Daily, First dose on Gabi 10/19/24 at 0900, Do not crush, chew, or [...] daily with meals, First dose on Gabi 24 at 0800 0920 (Given - Provider: Morenita [...] Wed10/19/24 at 0900 0920 (Given - Provider: Moernita Hess RN) 1021 (Given - Provider: Ezio Dunlap RN) 0821 (Self Administered Via Pump - Provider: Ezio Dunlap RN) gabapentin (Neurontin) capsule 100 mg 100 mg, Oral, 2 times daily, First dose on Wed10/18/24 at 2115 0920 (Given - Provider: Morenita Hess RN)210 (Given - Provider: Gill Edmonds RN) 102 (Given - Provider: Ezio Dunlap RN)2010 (Given [...] RN) 1021 (Given - Provider: Ezio Dunlap RN)1458 (Given [...] 2100 0918 (Given - Provider: Morenita Hess RN)2109 (Given - Provider: Gill Edmonds, PASTORA) 1020 (Given - Provider: Ezio Dunlap RN)2009 (Given - Provider: Gill Edmonds, PASTORA) 0823 (Self Administered Via Pump - Provider: [...] of water. 2108 (Given - Provider: Gill Edmonds RN) 2010 (Given - Provider: Gill Edmonds RN) menthol-zinc oxide (Calmoseptine - Risamine) 0.44-20.625 % ointment 1 Application 1 Application, Topical, 2 times daily, First dose on Wed10/20/24 at 1500, Apply topically after hygiene to posterior upper thighs, ischial, bilateral buttock. 921 (Given - Provider: Morenita Hess RN)2122 (Given - Provider: Gill Edmonds RN) 1027 (Given - Provider: Ezio Dunlap, RN)2015 (Given - Provider: Gill Edmonds RN) [...] ph balanced skin wipe and pat dry. 0922 (Given - Provider: Morenita Hess RN)2109 (Given - Provider: Gill Edmonds RN) 1028 (Given - Provider: Ezio Dunlap, PASTORA)2015 (Given - Provider: Gill Edmonds, PASTORA) 0822 (Self Administered Via Pump - Provider: Ezio Dunlap RN) pantoprazole (ProtoNix) 40 mg in sodium chloride (PF) 0.9 % 10 mL injection 40 mg, IntraVENous, Administer over 2 Minutes, 2 times daily, First dose on Wed10/19/24 at 0600, Reconstitute with 10 ml NS. Vial expires 2 hrs after reconstitution. 0640 (Given - Provider: Araon Guzman RN)1426 (Given - Provider: Morenita Hess RN) 0611 (Given - Provider: Gill Edmonds, PASTORA)1640 (Given - Provider: Ezio Dunlap, PASTORA) 0553 (Given - Provider: Gill Edmonds RN)1500 [...] (2 times per day), First dose on 10/18/24 at 2115 0900 (Given - Provider: Morenita Hess RN)2099 (Not Given - Provider: Gill Edmonds RN - Reason: IV Fluids Infusing) 09 (Given - Provider: Ezio Dunlap RN)2015 (Given [...] ALERT or NPO., Starting on Wed10/18/24 at 2112, If patient does not respond within 5 [...] have IV access., Starting on Wed10/18/24 at 2112, After administration, attempt intravenous access and start D5W at 100 mL/hr. Repeat blood glucose in 15 minutes x2 and notify provider. glucose oral gel 15 g 15 g, Oral, As needed, low blood sugar, Starting on Wed10/18/24 at 2112, If blood glucose less than 50 mg/dL [...] mg, Oral, Nightly PRN, sleep, Starting on 10/18/24 at 2112 naloxone (Narcan) injection 0.4 mg 0.4 mg, IntraVENous, Every 5 min PRN, opioid reversal, respiratory depression, Starting on Gabi 10/19/24 at 1124, +++ For RR <10, pinpoint pupils, over sedation for opioid reversal - MUST notify communications designer provider immediately after first dose, may give IM or SQ if no IV access +++ ondansetron (Zofran) injection 4 mg(Linked Group 2) 4 mg, IntraVENous, Every 6 hours PRN, nausea, vomiting, Starting on 10/18/24 at 2112, 1st Line. Give IV if patient is unable to take orally. If inadequate response within 60 minutes, proceed to next-line agent or contact provider if no further options ordered. ondansetron ODT (Zofran-ODT) disintegrating tablet 4 mg(Linked Group 2) 4 mg, Oral, Every 8 hours PRN, nausea, vomiting, Starting on 10/18/24 at 2112, 1st Line. If inadequate response [...] PRN, line care, Starting on Wed10/18/24 at 2112, After every IV line use Linked Groups [...] Infection 2250 (Given - Provider: Nicolle Frazier, RN) ondansetron (Zofran) injection 4 mg (COMPLETED) 4 mg, IntraVENous, Once, On Wed07/10/25 at 1720, For 1 dose 183 (Given - Provider: Maria Luisa Palmer RN) sodium chloride 0.9 % bolus 1,000 mL (COMPLETED) 1,000 mL, IntraVENous, at 1,000 mL/hr, Administer over 1 Hours, Once, On Wed07/10/25 at 1720, For 1 dose 183 (New Bag - Provider: Eliza Palmer, RN)1955 (Stopped - Provider: Nicolle Frazier, PASTORA) [...] BE BASED ON THE PRIMARY CLINICAL RECORDS. [employer] provides no warranty or guarantee of the accuracy or completeness of information in this document.
[2025-08-28 08:51] LABS: Creatinine, Urine (random) 84.40 mg/dL (28.00-217.00); Microalbumin,Random Urine 57.5 mg/L (<20 mg/L)
[2025-08-28 08:59] LABS: Albumin, Serum 3.5 g/dL (3.5-5.0); Anion Gap 10 (5-15); BUN 16 mg/dL (4-19); BUN/Creat Ratio 23.8 RATIO (10-20); Calcium,Total 8.8 mg/dL (7.6-11.0); Carbon Dioxide 26.9 mmol/L (21.0-32.0); Chloride 99 mmol/L (98-108); Glucose 314 mg/dL (70-99); Potassium 4.3 mmol/L (3.3-5.1)
== END ==
LOC: OLS.SANC 05:00
PROVIDERS: Visit Provider Internal Medicine
DX: E11.9 Type 2 diabetes mellitus without complications (principal); E78.5 Hyperlipidemia, unspecified
CPT/HCPCS: 36415; 80069; 82043; 82570

== ENCOUNTER → 2025-09-24 05:00 | Outpatient (REF) | payer MEDICARE, MEDICAID, SELFPAY ==
--- OUTSIDE RECORDS SUMMARY | 2025-09-24 04:04 | XMS RPT_ITS | CCD ---
Author Organization [facility] Care Team Providers Care Reimbursement Representative Name Role Phone Kylah Luu Unavailable Unavailable [...] FUENTES Unavailable Unavailable SARBJIT GARNER Unavailable Unavailable RASKYLAH FUENTES Unavailable Unavailable RASKYLAH FUENTES Unavailable Unavailable JERRY DAVIS Unavailable Unavailable RASGINA, KYLAH Escobar Unavailable Unavailable MARINE, JAYSON Unavailable Unavailable GUERRERO, BRANDON Unavailable Unavailable MARINE, JAYSON Referring Unavailable RASKYLAH FUENTES Referring Unavailable Jared Guzman Primary Care Provider [phone] Jared Guzman Primary Care Provider [phone] Jared Guzman Primary Care Provider [phone] Unavailable Primary Care Provider UnavailJared Miller Primary Care Provider [phone] Jared Guzman Primary Care Provider [phone] Jared Guzman Primary Care Provider [phone] SARBJIT GARNER Primary Care Unavail able ELDA REAVES Attending Unavailable Alejandro Stephenson APRN, CNP Unavailable Jared Singh Attending Provider Unavailab le Katsaros OLS, Peter Referring Provider Unavailab le Katsaros OLS, Peter Attending Provider Unavailab le Katsaros OLS, Peter Referring Provider Unavailab le Katsaros OLS, Peter Attending Provider Unavailab le Katsaros OLS, Peter Referring Provider Unavailab le Mandel SECURITY CONTROLS ASSESSOR - KRANTHI, Alejandro Unavailable [phone] KATSAROS, PETER Primary Care Unavailable VICENTE MIXON Attending Unavailable KATSAROS, PETER Primary Care Unavailable SHAWNA, ÁLVARO Attending Unavailable SHAWNA, ÁLVARO Admitting Unavailable SHAWN FARIAS Consulting Unavailable BASAR, FARHAD Admitting Unavailable BASAR, FARHAD Attending Unavailable KATSAROS, PETER Primary Care Unavailable KATSAROS, PETER Primary Care Unavailable VIRGIL MEDEROS Attending Unavailable KATSAROS, PETER Primary Care Unavailable CHARLY, GRACE Admitting Unavailable CHARLY, GRACE Attending Unavailable MANDEL, ALEJANDRO Attending Unavailable MANDEL, ALEJANDRO Referring Unavailable KATSAROS, PETER Primary Care Unavailable LILO RIZO Attending Unavailable KATSAROS, PETER Primary Care Unavailable MARGO GUERRERO Attending Unavailable KATSAROS, PETER Primary Care Unavailable MINISTERIO, ALEJANDRO Attending Unavailable KATSAROS, PETER Referring Unavailable KATSAROS, PETER Primary Care Unavailable KAUSHAL SCHULTZ Attending Unavailable KATSAROS, PETER Primary Care Unavailable DANY WOODRUFF Attending Unavailable KATSAROS, PETER Primary Care Unavailable ASUNCION VALENCIA Attending Unavailable KATSAROS, PETER Primary Care Unavailable WANDA JOHNSON Attending Unavailable ROSY IBARRA Referring Unavailable KATSAROS, PETER Primary Care Unavailable ASUNCION VALENCIA Attending Unavailable KATSAROS, PETER Primary Care Unavailable KATSAROS, PETER Primary Care Unavailable HERMES [...] Attending Unavailable Katsaros OLS, Jared Attending Unavailable Medications Current Medications Medication Drug [...] inulin 200 mg / lactobacillus rhamnosus gg [id number] unt oral capsule (1 source) Start: 09-18-2020 [...] st dose on 08/18/23 at 0900 Start: 06-28-2023 End: 07-01-2023 take 40 mg by mouth every twenty-four hours 40 mg, Oral, Every 24 hours, First dose on Wed06/28/23 at 0900 Start: 11-23-2020 take 40 mg by mouth once daily 40 mg, Oral, DAILY, First dose on 11/23/20 at 0900 Start: 09-18-2020 take 40 mg by mouth once daily 40 mg, Oral, DAILY, First dose on 09/18/20 at 0900 Start: 06-15-2019 End: 06-19-2019 take [...] Inhibitor Star t: 09-09 20 End: 10-08 0 23 pantoprazole (ProtoNix) 40 MG EC tablet Take 40 mg by mouth. 11/26/2020 Active pantoprazole (PROTONIX) injection 40 mg (1 source) Star t: 09-08 2- 20 pantoprazole (PROTONIX) injection 40 mg phenol 14 mg/ml mouthwash (1 source) Star t: 06-08 0-20 19 phenol 1.4 % mouth spray 1 spray polyethylene glycol 3350 562221 mg / potassium chloride 2970 mg / sodium bicarbonate 6740 mg / sodium chloride 5860 mg / sodium sulfate 95226 mg powder for oral solution (1 source) Osmotic Laxative Star t: 12-09 End: 12-09 polyethylene glycol (GaviLyte-G) 236 g solution Indications: Fecal occult blood test positive , History of anemia Please take as directed by GI office for colonoscopy prep. 4000 mL 12/21/2024 12/22/2024 Active 1 ml promethazine hydrochloride 25 mg/ml injection (2 sources) Phenothiazine Star t: 09-08 promethazine (PHENERGAN) injection 25 mg Start: 09-23-2020 [...] ringers bolus castor oil 0.788 mg/mg / nigerian balsam 0.087 mg/mg topical ointment (4 sources) Standardized Chemical Allergen Start: 01-17-2019 End: 09-17-2020 Balsam Daven[place] Oil (VENELEX) OINT ointment Apply topically daily 1 Tube 0 01/17/2019 09/17/2020 Discontinued cefpodoxime 200 mg oral tablet (4 sources) Cephalosporin Antibacterial Start: 08-08-2023 End: 10-12-2023 take 1 tablet by mouth twice daily [...] does not have IV access., Starting on 10/07/23 at 1656, After administration, attempt intravenous [...] have IV access., Starting on Wed06/28/23 at 0848 After administration, attempt intravenous access [...] 15 g Start: 09-18-2020 15 g, Oral, [place] N, Low blood sugar, Starting Wed09/18/20 at [...] Start: 10-12-2023 End: 10-17-2023 250 Units, IntraCATHeter, [place] N, line care, after blood draws and [...] BEFORE MEALS & NIGHTLY, First dose on Wed11/23/20 at 0045 Medium Dose Corrective Algorithm Glucose: [...] tablet by mouth 0 Active lactobacillus acidophilus [id number] unt / pectin 100 mg oral tablet (20 sources) End: 01-11-2024 take 1 tablet by mouth in the morning Lactobacillus Acid-Pectin (Acidophilus/[place] Pectin) tablet Take 1 tablet by mouth [...] End: 10-19-2024 4 mg, IntraVENous, Once, On Wed10/19/24 at 0415, For 1 dose Start: 10-19-2024 End: 10-19-2024 4 mg, IntraVENous, Once, On Wed10/19/24 at 0415, For 1 dose Start: 10-18-2024 [...] that apply): Intra-Abdominal Infection polyethylene glycol 3350 65787 mg powder for oral solution (20 sources) [...] Oral, DAILY, First d ose on Gabi 8/8/19 at 1345 Do not crush or break. [...] hours, First dose on Wed10/11/23 at 0000, ADD-[place] bag, Suspected Indication (Select all that apply): [...] [Type 2 diabetes mellitus without complications] Onset: 09-13-2009-01-2018 Chronic Diabetes mellitus without complication (20 sources) Hyperglycemia; 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: [Hyperglycemia, unspecified] Onset: 05-16-2005-16-2019 Episodic Disorders of lipid metabolism (20 sources) Hyperlipidemia, [...] chronic osteomyelitis, unspecified ankle and foot] Onset: 03-25-20 18 09-01-2018 Chronic Menopausal disorders (20 sources) Postmenopausal bleeding; 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: [Postmenopausal bleeding] Onset: 05-16-2005-16-2019 Chronic Mood disorders (1 source) Major depressive disorder, single episode, unspecified; 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: [LIZZY DEPRESS D/O SINGLE EPIS UNS] Onset: 05-09-20 Nausea and vomiting (20 sources) Nausea and vomiting; 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: [Nausea] Onset: 09-22-2027 09-15-2020 Episodic Other aftercare (2 sources) Long-term current use of antibiotic; 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: [extermination inspector (current) use of antibiotics] 10-12-2023 Episodic Other aftercare (1 source) Other intermediate project manager (current) drug therapy; 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: [Other intermediate project manager (current) drug therapy] Onset: 09-13-20 Episodic Other bone disease and musculoskeletal deformities (2 sources) Acquired absence of right leg above knee; 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: [Acquired absence of right leg above knee (HCC)] Onset: 08-22-20 Chronic Other bone disease and musculoskeletal deformities (1 source) Acquired absence of other right toe(s); 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: [ACQUIRED ABSENCE OTHER RIGHT TOES] Onset: 05-09-20 Episodic Other diseases of veins and lymphatics (3 sources) Lymphedema, not elsewhere classified; 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: [LYMPHEDEMA [...] 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: [Body mass index (BMI) 50.0-59.9, adult ([facility])] Onset: 06-07-20 Chronic Other nutritional; endocrine; and metabolic disorders (2 sources) Body mass index (BMI) 45.0-49.9, adult; 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: [Body mass index (BMI) 45.0-49.9, adult ([facility])] Onset: 04-06-20 Chronic Other screening for suspected [...] 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: [Acute cholecystitis] Onset: 4 10-18-2024 Episodic Esophageal disorders (20 sources) Esophagitis; 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: [Esophagitis] Onset: 0 09-22-2020 Episodic Genitourinary symptoms and ill-defined conditions (9 sources) Endometrium thickened; 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: [Microalbuminuria] Onset: 5 11-26-2020 Episodic Intestinal obstruction without hernia (20 sources) Intestinal obstruction co-occurrent and due to decreased peristalsis; 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: [Ileus, unspecified] Onset: 0 09-27-2020 Episodic Nonspecific chest pain (20 sources) Chest pain; 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: [Chest pain, unspecified] Onset: 3 06-28-2023 Episodic Other aftercare (5 sources) extermination inspector (current) use of insulin; 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: [Other chcf (current) drug therapy] Onset: 8 Episodic Other [...] Unclassified (3 sources) PAD (peripheral artery disease) ([facility]) 02-01-2025 Unclassified (1 source) Obesity, class 3 ([facility]); 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: [Obesity, class 3 ([facility])] Onset: 5 Results Test Name Value Interpretation Reference Range Facility 36 09-11-2025 36 Spoke to nurse and advised to no longer send. Nurse voiced understanding [address] 09-06-2025 36 Diabetes managed by facility provider, no need to send [facility] BGL. Thank you [address] 09-05-2025 36 Patient's BGL Normal [facility] Microalb:Creat Ratio,Random URon 08-28-2025 Creatinine [Mass/Vol] 84.40 mg/dL Normal 28.00- 217.0 0 [facility] Comment on above: Performed By: #### L 502.0250 #### [facility] [address] [place], [address] MALB:CREAT 68.1 mg/g CRE High <30 mg/g CRE [facility] Comment on above: Performed By: #### L 502.0250 #### [facility] [address] [place], [address] MICROALBUMIN,UR 57.5 mg/L Normal <20 mg/L [facility] Comment on above: Performed By: #### L 502.0250 #### [facility] [address] [place], [address] Renal Profileon 08-28-2025 Albumin [Mass/Vol] 3.5 g/dL Normal 3.5-5.0 [facility] Comment on above: Order Comment: 103-1 Performed By: #### L 100.0500, L500.4050 #### [facility] [address] [place], [address] BUN/CRE 23.8 RATIO High - [facility] Comment on above: Order Comment: 103-1 Performed By: #### L 100.0500, L500.4050 #### [facility] [address] [place], [address] Calcium [Mass/Vol] 8.8 mg/dL Normal 7.6-11.0 [facility] Comment on above: Order Comment: 103-1 Performed By: #### L 100.0500, L500.4050 #### [facility] [address] [place], [address] Chloride [Moles/Vol] 99 mmol/L Normal 98-108 [facility] Comment on above: Order Comment: 103-1 Performed By: #### L 100.0500, [id number] #### [facility] [address] [place], [address] CO2 [Moles/Vol] 26.9 mmol/L Normal 21.0-32.0 [facility] Comment on above: Order Comment: 103-1 Performed By: #### L 100.0500, L500.4050 #### [facility] [address] [place], [address] Creatinine [Mass/Vol] 0.69 mg/dL Low 0.70-1.20 [facility] Comment on above: Order Comment: 103-1 Performed By: #### L 100.0500, L500.4050 #### [facility] [address] [place], [address] GAP 10 Normal 5-15 [facility] Comment on above: Order Comment: 103-1 Performed By: #### L 100.0500, L500.4050 #### [facility] [address] [place], [address] GFR/1.73 sq M.predicted among non-blacks MDRD (S/P/Bld) [Vol rate/Area] 101 mL/min/{1.73_m2} Normal >60 [facility] Comment on above: Order Comment: 103- Result Comment: mL/m in/1.73m2 CKD-EPI Creatinine Equation (2020) Performed By: #### L 100.0500, L500.4050 #### [facility] [address] [place], [address] Glucose [Mass/Vol] 314 mg/dL High 70-99 [facility] Comment on above: Order Comment: 103-1 Performed By: #### L 100.0500, [id number] #### [facility] [address] [place], [address] Potassium [Moles/Vol] 4.3 mmol/L Normal 3.3-5.1 [facility] Comment on above: Order Comment: 103-1 Result Comment: Hemo lysis present, Results??could be affected. ?? Performed By: #### L 100.0500, L500.4050 #### [facility] [address] [place], [address] Sodium [Moles/Vol] 136 mmol/L Normal 133-145 [facility] Comment on above: Order Comment: 103-1 Performed By: #### L 100.0500, L500.4050 #### [facility] [address] [place], [address] Urea nitrogen [Mass/Vol] 16 mg/dL Normal 4-19 [facility] Comment on above: Order Comment: 103-1 Performed By: #### L 100.0500, [id number] #### [facility] [address] [place], [address] Basic Metabolic Profile (BMP )on 08-23-2025 BUN/CRE 22.2 RATIO High 10- [facility] Comment on above: Order Comment: 103-1 Performed By: #### L 100.0500, [id number] #### [facility] [address] [place], [address] Calcium [Mass/Vol] 8.6 mg/dL Normal 7.6-11.0 [facility] Comment on above: Order Comment: 103-1 Performed By: #### L 100.0500, [id number] #### [facility] [address] [place], [address] Chloride [Moles/Vol] 102 mmol/L Normal 98-108 [facility] Comment on above: Order Comment: 103-1 Performed By: #### L 100.0500, [id number] #### [facility] [address] [place], [address] CO2 [Moles/Vol] 29.8 mmol/L Normal 21.0-32.0 [facility] Comment on above: Order Comment: 103-1 Performed By: #### L 100.0500, [id number] #### [facility] [address] [place], [address] Creatinine [Mass/Vol] 0.63 mg/dL Low 0.70-1.20 [facility] Comment on above: Order Comment: 103-1 Performed By: #### L 100.0500, [id number] #### [facility] [address] [place], [address] GAP 8 Normal 5-15 [facility] Comment on above: Order Comment: 103-1 Performed By: #### L 100.0500, [id number] #### [facility] [address] [place], [address] GFR/1.73 sq M.predicted among non-blacks MDRD (S/P/Bld) [Vol rate/Area] 103 mL/min/{1.73_m2} Normal >60 [facility] Comment on above: Order Comment: 103-1 Result Comment: mL/m in/1.73m2 CKD-EPI Creatinine Equation (2020) Performed By: #### L 100.0500, [id number] #### [facility] [address] [place], [address] Glucose [Mass/Vol] 122 mg/dL High 70-99 [facility] Comment on above: Order Comment: 103-1 Performed By: #### L 100.0500, [id number] #### [facility] [address] [place], [address] Potassium [Moles/Vol] 4.2 mmol/L Normal 3.3-5.1 [facility] Comment on above: Order Comment: 103-1 Performed By: #### L 100.0500, [id number] #### [facility] [address] [place], [address] Sodium [Moles/Vol] 140 mmol/L Normal 133-145 [facility] Comment on above: Order Comment: 103-1 Performed By: #### L 100.0500, [id number] #### [facility] [address] [place], [address] Urea nitrogen [Mass/Vol] 14 mg/dL Normal 4-19 [facility] Comment on above: Order Comment: 103-1 Performed By: #### L 100.0500, [id number] #### [facility] [address] [place], [address] CBC-Complete Blood Cnt No Di ffon 08-23-2025 Erythrocyte distribution width (RBC) [Ratio] 15.8 % High 11.6-14.6 [facility] Comment on above: Order Comment: 103-1 Performed By: #### L 100.0500, [id number] #### [facility] [address] [place], [address] Hematocrit (Bld) [Volume fraction] 35.7 % Low 37-47 [facility] Comment on above: Order Comment: 103-1 Performed By: #### L 100.0500, [id number] #### [facility] [address] [place], [address] Hemoglobin (Bld) [Mass/Vol] 10.8 g/dL Low 12.0-15.0 [facility] Comment on above: Order Comment: 103-1 Performed By: #### L 100.0500, [id number] #### [facility] [address] [place], [address] MCH (RBC) [Entitic mass] 26.3 pg Low 27.0-32.0 [facility] Comment on above: Order Comment: 103-1 Performed By: #### L 100.0500, [id number] #### [facility] [address] [place], [address] MCHC (RBC) [Mass/Vol] 30.3 g/dL Low 32-36 [facility] Comment on above: Order Comment: 103-1 Performed By: #### L 100.0500, [id number] #### [facility] [address] [place], [address] MCV (RBC) [Entitic vol] 87.1 fL Normal 81-99 [facility] Comment on above: Order Comment: 103-1 Performed By: #### L 100.0500, [id number] #### [facility] [address] [place], [address] Platelet mean volume (Bld) [Entitic vol] 10.0 fL Normal 6.2-12.0 [facility] Comment on above: Order Comment: 103-1 Performed By: #### L 100.0500, [id number] #### [facility] [address] [place], [address] Platelets (Bld) [#/Vol] 328 10*3/uL Normal 150-450 [facility] Comment on above: Order Comment: 103-1 Performed By: #### L 100.0500, [id number] #### [facility] [address] [place], [address] RBC (Bld) [#/Vol] 4.10 10*6/uL Low 4.2-5.[address] [facility] Comment on above: Order Comment: 103-1 Performed By: #### L 100.0500, [id number] #### [facility] [address] [place], [address] RDW SD 50.4 fl High 35.1-43.9 [facility] Comment on above: Order Comment: 103-1 Performed By: #### L 100.0500, [id number] #### [facility] [address] [place], [address] WBC (Bld) [#/Vol] 6.6 10*3/uL Normal 4.4-11.0 [facility] Comment on above: Order Comment: 103-1 Performed By: #### L 100.0500, [id number] #### [facility] [address] [place], [address] 36on 07-30-2025 36 Faxed Recent Chart n ote to [facility]Har[facility]Car[facility]EXANDER [facility] 36on 07-27-2025 36 Lease fax last OV to facility, Pump Back Altagracia [facility] Progress Noteon 07-26-2025 Progress Note [facility] 36on 07-24-2025 36 Spoke with nurse Johan clark at the facility. Confirmed the appointment date and time. Agrees to bring recommended documents. The PCP is Dr Jared Guzman [facility] 36 [facility] 36on 07-23-2025 36 Patient's BGL [facility] 36 Spoke with PASTORA Barrera. She verbalized and understand below TE. [facility] 36on 07-20-2025 36 [facility] 36on 07-19-2025 36 Scanned, see in the media tab. [facility] 36 Called to the facili ty, said they will fax it. [facility] Basic Metabolic Profile (BMP )on 07-19-2025 BUN/CRE 20.9 RATIO High 10-20 [facility] Comment on above: Order Comment: 103-1 Performed By: #### L 100.0500, [id number] #### [facility] [address] [place], [address] Calcium [Mass/Vol] 8.8 mg/dL Normal 7.6-11.0 [facility] Comment on above: Order Comment: 103-1 Performed By: #### L 100.0500, [id number] #### [facility] [address] [place], [address] Chloride [Moles/Vol] 103 mmol/L Normal 98-108 [facility] Comment on above: Order Comment: 103-1 Performed By: #### L 100.0500, [id number] #### [facility] [address] [place], [address] CO2 [Moles/Vol] 25.9 mmol/L Normal 21.0-32.0 [facility] Comment on above: Order Comment: 103-1 Performed By: #### L 100.0500, [id number] #### [facility] [address] [place], [address] Creatinine [Mass/Vol] 0.71 mg/dL Normal 0.70-1.20 [facility] Comment on above: Order Comment: 103-1 Performed By: #### L 100.0500, [id number] #### [facility] [address] [place], [address] GAP 10 Normal 5-15 [facility] Comment on above: Order Comment: 103-1 Performed By: #### L 100.0500, [id number] #### [facility] [address] [place], [address] GFR/1.73 sq M.predicted among non-blacks MDRD (S/P/Bld) [Vol rate/Area] 99 mL/min/{1.73_m2} Normal >60 [facility] Comment on above: Order Comment: 103-1 Result Comment: mL/m in/1.73m2 CKD-EPI Creatinine Equation (2020) Performed By: #### L 100.0500, [id number] #### [facility] [address] [place], [address] Glucose [Mass/Vol] 62 mg/dL Low 70-99 [facility] Comment on above: Order Comment: 103-1 Performed By: #### L 100.0500, [id number] #### [facility] [address] [place], [address] Potassium [Moles/Vol] 4.3 mmol/L Normal 3.3-5.1 [facility] Comment on above: Order Comment: 103-1 Performed By: #### L 100.0500, [id number] #### [facility] [address] [place], [address] Sodium [Moles/Vol] 139 mmol/L Normal 133-145 [facility] Comment on above: Order Comment: 103-1 Performed By: #### L 100.0500, [id number] #### [facility] [address] [place], [address] Urea nitrogen [Mass/Vol] 15 mg/dL Normal 4-19 [facility] Comment on above: Order Comment: 103-1 Performed By: #### L 100.0500, [id number] #### [facility] [address] [place], [address] CBC-Complete Blood Cnt No Di ffon 07-19-2025 Erythrocyte distribution width (RBC) [Ratio] 14.5 % Normal 11.6-14.6 [facility] Comment on above: Order Comment: 103-1 Performed By: #### L 100.0500, [id number] #### [facility] [address] [place], [address] Hematocrit (Bld) [Volume fraction] 38.0 % Normal 37-47 [facility] Comment on above: Order Comment: 103-1 Performed By: #### L 100.0500, [id number] #### [facility] Laboratory [address] [place], [address] Hemoglobin (Bld) [Mass/Vol] 11.8 g/dL Low 12.0-15.0 [facility] Comment on above: Order Comment: 103-1 Performed By: #### L 100.0500, L500.4050 #### [facility] Laboratory [address] [place], [address] MCH (RBC) [Entitic mass] 25.7 pg Low 27.0-32.0 [facility] Comment on above: Order Comment: 103-1 Performed By: #### L 100.0500, L500.4050 #### [facility] Laboratory [address] [place], [address] MCHC (RBC) [Mass/Vol] 31.1 g/dL Low 32-36 [facility] Comment on above: Order Comment: 103-1 Performed By: #### L 100.0500, L500.4050 #### [facility] Laboratory [address] [place], [address] MCV (RBC) [Entitic vol] 82.6 fL Normal 81-99 [facility] Comment on above: Order Comment: 103-1 Performed By: #### L 100.0500, L500.4050 #### [facility] Laboratory [address] [place], [address] Platelet mean volume (Bld) [Entitic vol] 9.5 fL Normal 6.2-12.0 [facility] Comment on above: Order Comment: 103-1 Performed By: #### L 100.0500, L500.4050 #### [facility] Laboratory [address] [place], [address] Platelets (Bld) [#/Vol] 411 10*3/uL Normal 150-450 [facility] Comment on above: Order Comment: 103-1 Performed By: #### L 100.0500, L500.4050 #### [facility] Laboratory [address] [place], [address] RBC (Bld) [#/Vol] 4.60 10*6/uL Normal 4.2-5.[address] [facility] Comment on above: Order Comment: 103-1 Performed By: #### L 100.0500, L500.4050 #### [facility] Laboratory [address] [place], [address] RDW SD 43.6 fl Normal 35.1-43.9 [facility] Comment on above: Order Comment: 103-1 Performed By: #### L 100.0500, L500.4050 #### [facility] Laboratory [address] [place], [place], [address] WBC (Bld) [#/Vol] 10.0 10*3/uL Normal 4.4-11.[address] [facility] Comment on above: Order Comment: 103-1 Performed By: #### L 100.0500, L500.4050 #### [facility] Laboratory [address] [place], [address] 36on 07-18-2025 36 Left a VM to faxed u s the MAR and med list. Normal [facility] 36 Patient's BGL Normal [facility] Urine Cultureon 07-13-2025 URC #4 Organism is too fastidious for routine susceptibility studies. Escherichia coli Lipscomb Count 80,000-100,000 Proteus mirabilis Proteus mirabilis SWAR Lipscomb Count 25,000-50,000 Staphylococcus warneri Lipscomb Count 25,000-50,000 Escherichia coli: REACTION Globicatella sanguinis Ampicillin+Sulbac Islt TULIO <=2 Cefepime Islt TULIO <=0.12 S cefTRIAXone Islt TULIO <=0.25 Ciprofloxacin Islt TULIO <=0.06 S B-Lactamase Extended Susc Islt NEG Gentamicin Islt TULIO <=1 S levoFLOXacin Islt TULIO <=0.12 S Meropenem Islt TULIO <=0.25 S Nitrofurantoin Islt TULIO <=16 S Pip+Tazo Islt TULIO <=4 S [...] Oxacillin Susc Islt <=0.25 S Tetracycline Islt TULIO <=1 S TMP SMX Islt TULIO <=10 S Vancomycin Islt TULIO 1 S Normal [facility] Comment on above: Performed By: #### L 100.0500, L500.4050 #### [facility] Laboratory [address] [place], [address] Basic Metabolic Profile (BMP )on 07-12-2025 BUN/CRE 28.4 RATIO High 10-20 [facility] Comment on above: Order Comment: UNKNO WN METHOD OF COLLECTION CLEAN CATCH Performed By: #### M 100.2200, L400.0001 #### [facility] Laboratory [address] [place], [address] Calcium [Mass/Vol] 8.5 mg/dL Normal 7.6-11.0 [facility] Comment on above: Order Comment: UNKNO WN METHOD OF COLLECTION CLEAN CATCH Performed By: #### M 100.2200, L400.0001 #### [facility] Laboratory [address] [place], [address] Chloride [Moles/Vol] 99 mmol/L Normal 98-108 [facility] Comment on above: Order Comment: UNKNO WN METHOD OF COLLECTION CLEAN CATCH Performed By: #### M 100.2200, L400.0001 #### [facility] Laboratory [address] [place], [address] CO2 [Moles/Vol] 27.3 mmol/L Normal 21.0-32.0 [facility] Comment on above: Order Comment: UNKNO WN METHOD OF COLLECTION CLEAN CATCH Performed By: #### M 100.2200, L400.0001 #### [facility] Laboratory [address] [place], [address] Creatinine [Mass/Vol] 0.65 mg/dL Low 0.70-1.20 [facility] Comment on above: Order Comment: UNKNO WN METHOD OF COLLECTION CLEAN CATCH Performed By: #### M 100.2200, L400.0001 #### [facility] Laboratory [address] [place], [address] GAP 10 Normal 5-15 [facility] Comment on above: Order Comment: UNKNO WN METHOD OF COLLECTION CLEAN CATCH Performed By: #### M 100.2200, L400.0001 #### [facility] Laboratory [address] [place], [address] GFR/1.73 sq M.predicted among non-blacks MDRD (S/P/Bld) [Vol rate/Area] 102 mL/min/{1.73_m2} Normal >60 [facility] Comment on above: Order Comment: UNKNO WN METHOD OF COLLECTION CLEAN CATCH Result Comment: mL/m in/1.73m2 CKD-EPI Creatinine Equation (2020) Performed By: #### M 100.2200, L400.0001 #### [facility] Laboratory [address] [place], [address] Glucose [Mass/Vol] 76 mg/dL Normal 70-99 [facility] Comment on above: Order Comment: UNKNO WN METHOD OF COLLECTION CLEAN CATCH Performed By: #### M 100.0, L400.0001 #### [facility] Laboratory [address] [place], [address] Potassium [Moles/Vol] 4.2 mmol/L Normal 3.3-5.1 [facility] Comment on above: Order Comment: UNKNO WN METHOD OF COLLECTION CLEAN CATCH Performed By: #### M 100.2200, L400.0001 #### [facility] Laboratory [address] [place], [address] Sodium [Moles/Vol] 137 mmol/L Normal 133-145 [facility] Comment on above: Order Comment: UNKNO WN METHOD OF COLLECTION CLEAN CATCH Performed By: #### M 100.2200, L400.0001 #### [facility] Laboratory [address] [place], [address] Urea nitrogen [Mass/Vol] 18 mg/dL Normal 4-19 [facility] Comment on above: Order Comment: UNKNO WN METHOD OF COLLECTION CLEAN CATCH Performed By: #### M 100.2200, L400.0001 #### [facility] Laboratory [address] [place], [address] CBC-Complete Blood Cnt No Di ffon 07-12-2025 Erythrocyte distribution width (RBC) [Ratio] 14.3 % Normal 11.6-14.6 [facility] Comment on above: Order Comment: UNKNO WN METHOD OF COLLECTION CLEAN CATCH Performed By: #### M 100.2200, L400.0001 #### [facility] Laboratory [address] [place], [address] Hematocrit (Bld) [Volume fraction] 34.8 % Low 37-47 [facility] Comment on above: Order Comment: UNKNO WN METHOD OF COLLECTION CLEAN CATCH Performed By: #### M 100.2200, L400.0001 #### [facility] Laboratory [address] [place], [address] Hemoglobin (Bld) [Mass/Vol] 10.8 g/dL Low 12.0-15.0 [facility] Comment on above: Order Comment: UNKNO WN METHOD OF COLLECTION CLEAN CATCH Performed By: #### M 100.2200, L400.0001 #### [facility] Laboratory [address] [place], [address] MCH (RBC) [Entitic mass] 26.2 pg Low 27.0-32.0 [facility] Comment on above: Order Comment: UNKNO WN METHOD OF COLLECTION CLEAN CATCH Performed By: #### M 100.2200, L400.0001 #### [facility] Laboratory [address] [place], [address] MCHC (RBC) [Mass/Vol] 31.0 g/dL Low 32-36 [facility] Comment on above: Order Comment: UNKNO WN METHOD OF COLLECTION CLEAN CATCH Performed By: #### M 100.2200, L400.0001 #### [facility] Laboratory [address] [place], [address] MCV (RBC) [Entitic vol] 84.5 fL Normal 81-99 [facility] Comment on above: Order Comment: UNKNO WN METHOD OF COLLECTION CLEAN CATCH Performed By: #### M 100.2200, L400.0001 #### [facility] Laboratory [address] [place], [address] Platelet mean volume (Bld) [Entitic vol] 10.8 fL Normal 6.2-12.0 [facility] Comment on above: Order Comment: UNKNO WN METHOD OF COLLECTION CLEAN CATCH Performed By: #### M 100.0, L400.0001 #### [facility] Laboratory [address] [place], [address] Platelets (Bld) [#/Vol] 316 10*3/uL Normal 150-450 [facility] Comment on above: Order Comment: UNKNO WN METHOD OF COLLECTION CLEAN CATCH Performed By: #### M 100.0, L400.0001 #### [facility] Laboratory [address] [place], [address] RBC (Bld) [#/Vol] 4.12 10*6/uL Low 4.2-5.[address] [facility] Comment on above: Order Comment: UNKNO WN METHOD OF COLLECTION CLEAN CATCH Performed By: #### M 100.2200, L400.0001 #### [facility] Laboratory [address] [place], [address] RDW SD 44.1 fl High 35.1-43.9 [facility] Comment on above: Order Comment: UNKNO WN METHOD OF COLLECTION CLEAN CATCH Performed By: #### M 100.2200, L400.0001 #### [facility] Laboratory [address] [place], [address] WBC (Bld) [#/Vol] 11.9 10*3/uL High 4.4-11.[address] [facility] Comment on above: Order Comment: UNKNO WN METHOD OF COLLECTION CLEAN CATCH Performed By: #### M 100.2200, L400.0001 #### [facility] Laboratory [address] [place], [address] No Panel InformationOrdered By: Shirley Graves on 07-11-2025 P [place] 68 degrees [employer] Work Phone: [place] Interval 182 ms [employer] Work Phone: QRS [place] -33 degrees [employer] Work Phone: QRSD Interval 113 ms [email or web address] Phone: QT Interval 420 ms [email or web address] Phone: QTC Interval 491 ms [employer] Work Phone: T Wave [place] 59 degrees [email or web address] Phone: [phone] [email or web address] Phone: No Panel Informationon 07-11 Shirley Graves D O - 07/11/2025 IMPRESSION: Sinus rhythm Abnormal R-wave progression, late transition Left ventricular hypertrophy Borderline prolonged QT interval Electronically Signed On 07-11-2025 00:56:44 EDT by Shirley Graves [facility] Vital signsOrdered By: Oscar Graves on 07-11-2025 Heart rate 82 /min bpm [email or web address] Phone: BETA HYDROXYBUTYRATEon 07-10 BETA HYDROXYBUTYRATE 7.3 mg/dL High <=2.8 [facility] [employer] [facility] Comment on above: Performed By: #### L AB17, LAB99, [id number], [id number] ####Release Manager: KEMAR ABEBE ([id number])[facility] ([facility])[address] [place] [address] BLOOD GAS, VENOUSon 07-10-20 25 AMOUNT OF OXYGEN 2L Normal [facility] [employer] Comment on above: Result Comment: MARIE Doshi COMMENTS:Assessment of oxygenation is best done with an arterial blood gas determination. Reference ranges for pO2, bicarbonate, and base excess are for mixed venous blood. Specimens drawn from a peripheral vein will often have higher values. Performed By: #### L AB79 ####Release Manager: KEMAR ABEBE ([id number])[facility] ([facility])[address] Base excess Calc (BldV) [Moles/Vol] 6.8 mmol/L High -3.0-3.0 [facility] Comment on above: Performed By: #### L AB79 ####Release Manager: KEMAR ABEBE ([id number])[facility] ([facility])[address] CO2 [Moles/Vol] 35.4 mmol/L High 23.0-30.0 [facility] Comment on above: Performed By: #### L AB79 ####Release Manager: KEMAR ABEBE ([id number])[facility] (SB[facility]AB)[address] [place] [address] [place] HCO3 (Bld) [Moles/Vol] 33.6 mmol/L High 21.0-30.0 [facility] Comment on above: Performed By: #### L AB79 ####Release Manager: KEMAR ABEBE ([id number])[facility] ([facility])[address] Hemoglobin (Bld) [Mass/Vol] 12.9 g/dL Normal Screen only [facility] Comment on above: Performed By: #### L AB79 ####Release Manager: KEMAR ABEBE ([id number])[facility] (SB[facility])[address] [place] [address] [place] OXYGEN (MM HG) IN VENOUS BLOOD 73.0 mm Hg Normal [facility] Comment on above: Performed By: #### L AB79 ####Release Manager: KEMAR ABEBE ([id number])[facility] (SB[facility])[address] OXYGEN SATURATION (%) IN VENOUS BLOOD 93.3 % Normal [facility] Comment on above: Performed By: #### L AB79 ####Release Manager: KEMAR ABEBE ([id number])[facility] ([facility])[address] PCO2, FARIBA 58.4 mm Hg High 40.0-55.0 [facility] Comment on above: Performed By: #### L AB79 ####Release Manager: KEMAR ABEBE ([phone])[facility] [place] ([facility])[address] PH VENOUS 7.378 Normal 7.320-7.420 [facility] Comment on above: Performed By: #### L AB79 ####Release Manager: KEMAR ABEBE ([id number])[facility] [place] ([facility])[address] SOURCE OF OXYGEN Nasal Cannula (LPM) Normal [facility] Comment on above: Performed By: #### L AB79 ####Release Manager: KEMAR ABEBE ([phone])[facility] [place] ([facility])[address] CBC W Auto Differential pane l (Bld)on 07-10-2025 Basophils (Bld) [#/Vol] 0 10*3/uL 0.0 - 0.2 10*3/uL [facility] Basophils/100 WBC (Bld) 0.2 % 0.0 - 2.0 % [facility] Eosinophils (Bld) [#/Vol] 0 10*3/uL 0.0 - 0.5 10*3/uL [facility] Eosinophils/100 WBC (Bld) 0.1 % 0.0 - 6.0 % [facility] Erythrocyte distribution width (RBC) [Ratio] 14.7 % 11.5 - 15.0 % [facility] Hematocrit (Bld) [Volume fraction] 36.8 % Male: 40.0-52.0 ; Female: 35.0-47.[address] [facility] Hemoglobin (Bld) [Mass/Vol] 11.6 g/dL Low 11.7 - 18.0 g/dL [facility] Immature granulocytes (Bld) [#/Vol] 0.1 10*3/uL High NINF - 0.1 10*3/uL [facility] Immature granulocytes/100 WBC (Bld) 0.6 % 0.0 - 2.0 % [facility] Interpretation and review of laboratory results Abnormal [facility] Lymphocytes (Bld) [#/Vol] 1 10*3/uL 1.0 - 4.3 10*3/uL [facility] Lymphocytes/100 WBC (Bld) 7.5 % Low 15.0 - 45.0 % [facility] MCH (RBC) [Entitic mass] 26.3 pg 26.0 - 34.[address] [facility] MCHC (RBC) [Mass/Vol] 31.5 % 30.5 - 36.0 % [facility] MCV (RBC) [Entitic vol] 83.4 fL 77.0 - 99.0 fL [facility] Monocytes (Bld) [#/Vol] 0.5 10*3/uL 0.0 - 0.9 10*3/uL [facility] Monocytes/100 WBC (Bld) 3.9 % Low 5.0 - 13.0 % [facility] Neutrophils (Bld) [#/Vol] 11.4 10*3/uL High 1.8 - 7.5 10*3/uL [facility] Neutrophils/100 WBC (Bld) 87.7 % High 38.0 - 82.0 % [facility] Nucleated RBC/100 WBC (Bld) [Ratio] 0 % [facility] Platelet mean volume (Bld) [Entitic vol] 9.7 fL 9.0 - 12.7 fL [facility] Platelets (Bld) [#/Vol] 317 10*3/uL 140 - 440 10*3/uL [facility] RBC (Bld) [#/Vol] 4.41 10*6/uL Male: 4.40-5.90; Female: 3.80-5.20 [facility] WBC (Bld) [#/Vol] 12.9 10*3/uL High 3.6 - 10.7 10*3/uL [facility] CBC WITH AUTO DIFFERENTIALon 07-10-2025 Basophils (Bld) [#/Vol] 0.0 10*3/uL Normal 0.0-0.2 [facility] Comment on above: Performed By: #### L [id number] ####Release Manager: KEMAR LUDWIGSAAD ([id number])[facility] (SB[facility])[address] Basophils/100 WBC (Bld) 0.2 % Normal 0.0-2.0 [facility] Comment on above: Performed By: #### L [id number] ####Release Manager: KEMAR LUDWIGSAAD ([id number])[facility] [place] ([facility])[address] Eosinophils (Bld) [#/Vol] 0.0 10*3/uL Normal 0.0-0.5 [facility] Comment on above: Performed By: #### L [id number] ####Release Manager: KEMAR ABEBE ([id number])[facility] ([facility])[address] Eosinophils/100 WBC (Bld) 0.1 % Normal 0.0-6.0 [facility] Comment on above: Performed By: #### L [id number] ####Release Manager: KEMAR LUDWIGSAAD ([id number])[facility] [place] ([facility])[address] [place] [address] Erythrocyte distribution width (RBC) [Ratio] 14.7 % Normal 11.5-15.0 [facility] Comment on above: Performed By: #### L [id number] ####Release Manager: KEMAR LUDWIGSAAD ([id number])[facility] [place] ([facility])[address] [place] [address] Hematocrit (Bld) [Volume fraction] 36.8 % Normal Male: 40.0-52.0 ; Female: 35.0-47.0 [facility] Comment on above: Performed By: #### L [id number] ####Release Manager: KEMAR ABEBE ([id number])[facility] ([facility])[address] Hemoglobin (Bld) [Mass/Vol] 11.6 g/dL Low 11.7-18.0 [facility] Comment on above: Performed By: #### L [id number] ####Release Manager: KEMAR ABEBE ([id number])[facility] ([facility])[address] IMMATURE GRANS % 0.6 % Normal 0.0-2.0 [facility] Comment on above: Performed By: #### L [id number] ####Release Manager: KEMAR ABEBE ([id number])[facility] [place] ([facility])[address] IMMATURE GRANS ABSOLUTE 0.1 10*3/uL High <0.1 [facility] Comment on above: Performed By: #### L [id number] ####Release Manager: KEMRA ABEBE ([id number])[facility] [place] ([facility])[address] Lymphocytes (Bld) [#/Vol] 1.0 10*3/uL Normal 1.0-4.3 [facility] Comment on above: Performed By: #### L [id number] ####Release Manager: KEMAR ABEBE ([id number])[facility] [place] ([facility])[address] Lymphocytes/100 WBC (Bld) 7.5 % Low 15.0-45.0 [facility] Comment on above: Performed By: #### L [id number] ####Release Manager: KEMAR ABEBE ([id number])[facility] [place] ([facility])[address] MCH (RBC) [Entitic mass] 26.3 pg Normal 26.0-34.0 [facility] Comment on above: Performed By: #### L [id number] ####Release Manager: KEMAR ABEBE ([id number])[facility] [place] ([facility])[address] MCHC 31.5 % Normal 30.5-36.0 [facility] Comment on above: Performed By: #### L [id number] ####Release Manager: KEMAR MOMINHiginioSAAD ([id number])[facility] ([facility])[address] MCV (RBC) [Entitic vol] 83.4 fL Normal 77.0-99.0 [facility] Comment on above: Performed By: #### L [id number] ####Release Manager: KEMAR ANDRAE ([id number])[facility] ([facility])[address] Monocytes (Bld) [#/Vol] 0.5 10*3/uL Normal 0.0-0.9 [facility] Comment on above: Performed By: #### L [id number] ####Release Manager: KEMAR LUDWIGSAAD ([id number])[facility] ([facility])[address] Monocytes/100 WBC (Bld) 3.9 % Low 5.0-13.0 [facility] Comment on above: Performed By: #### L [id number] ####Release Manager: KEMAR LUDWIGSAAD ([id number])[facility] ([facility])[address] NEUTROPHILS ABSOLUTE 11.4 10*3/uL High 1.8-7.5 [facility] Comment on above: Performed By: #### L [id number] ####Release Manager: KEMAR MOMINZOIESAAD ([id number])[facility] ([facility])[address] Neutrophils/100 WBC (Bld) 87.7 % High 38.0-82.0 [facility] Comment on above: Performed By: #### L [id number] ####Release Manager: KEMAR LUDWIGSAAD ([id number])[facility] ([facility])[address] NRBC 0.0 /100 WBCs Normal 0.0-2.0 [facility] Comment on above: Performed By: #### L [id number] ####Release Manager: KEMAR ABEBE ([id number])[facility] ([facility])[address] Platelet mean volume (Bld) [Entitic vol] 9.7 fL Normal 9.0-12.7 [facility] Comment on above: Performed By: #### L [id number] ####Release Manager: KEMAR ABEBE ([id number])[facility] (SBHL[facility])[address] [place] [address] Platelets (Bld) [#/Vol] 317 10*3/uL Normal 140-440 [facility] Comment on above: Performed By: #### L [id number] ####Release Manager: KEMAR ABEBE ([id number])[facility] (SBAB)[address] [place] [address] RBC (Bld) [#/Vol] 4.41 10*6/uL Normal Male: 4.40-5.90; Female: 3.80-5.20 [facility] Comment on above: Performed By: #### L [id number] ####Release Manager: KEMAR ABEBE ([id number])[facility] ([facility])[address] [place] [address] WBC (Bld) [#/Vol] 12.9 10*3/uL High 3.6-10.7 [facility] Comment on above: Performed By: #### L [id number] ####Release Manager: KEMAR ABEBE ([id number])[facility] [place] [address] COMPLETE URINALYSIS WITH REF KAYE TO CULTUREon 07-10-2025 BACTERIA (#/HPF) IN URINE Few Abnormal Negative [facility] Comment on above: Performed By: #### L [id number] ####Release Manager: MARCELA LUCERO ([id number])[facility] ([facility])[address] [place] [address]#### [id number] ####Release Manager: KEMAR ABEBE ([id number])[facility]ENTER[facility]ITALEmm[facility] (SBHLAB)[address] [place] [address] BILIRUBIN, TOTAL PRESENCE IN URINE Negative Normal Negative [facility] Comment on above: Performed By: #### L [id number] ####Release Manager: MARCELA LUCERO ([phone])[facility] ([facility])[address] [place] [address]#### [id number] ####Release Manager: KEMAR ABEBE ([id number])[facility] ([facility])[address] [place] [address] Clarity (U) Clear Normal Clear [facility] Comment on above: Performed By: #### L [id number] ####Release Manager: MARCELA LUCERO ([id number])[facility] ([facility])[address] [place] [address]#### [id number] ####Release Manager: KEMAR ABEBE ([id number])[facility] (SBAB)[address] [place] [address] Color (U) Light Yellow Normal Lt. Yellow [facility] Comment on above: Performed By: #### L [id number] ####Release Manager: MARCELA LUCERO ([id number])[facility] ([facility])[address] [place] [address]#### [id number] ####Release Manager: KEMAR ABEBE ([id number])[facility] (SBAB)[address] [place] [address] Glucose (U) [Mass/Vol] 300 mg/dL Abnormal Janey l (<70) [facility] Comment on above: Performed By: #### L [id number] ####Release Manager: MARCELA LUCERO ([id number])[facility] ([facility])[address] [place] [address]#### [id number] ####Release Manager: KEMAR ABEBE ([id number])[facility] [place] ([facility])[address] HEMOGLOBIN PRESENCE IN URINE Negative Normal Negative [facility] Comment on above: Performed By: #### L [id number] ####Release Manager: MARCELA LUCERO ([id number])[facility] (SACLAB)[address] [place] [address]#### [id number] ####Release Manager: KEMAR ABEBE ([id number])[facility] [place] ([facility])[address] [place] [address] Ketones Ql (U) 10 mg/dL Abnormal Negative [facility] Comment on above: Performed By: #### L [id number] ####Release Manager: MARCELA LUCERO ([phone])[facility] ([facility])[address] [place] [address]#### [id number] ####Release Manager: KEMAR ABEEB ([phone])[facility] ([facility])[address] [place] [address] LEUKOCYTE ESTERASE PRESENCE IN URINE BY TEST STRIP 75 Kat/uL Abnormal Negative [facility] Comment on above: Performed By: #### L AB239 ####Release Manager: MARCELA LUCERO ([phone])[facility] ([facility])[address] [place] [address]#### [id number] ####Release Manager: KEMAR ABEBE ([phone])[facility] ([facility])[address] [place] [address] MUCUS (#/LPF) IN URINE SEDIMENT Few Normal Negative [facility] Comment on above: Performed By: #### L AB239 ####Release Manager: MARCELA LUCERO ([phone])[facility] ([facility])[address] [place] [address]#### [id number] ####Release Manager: KEMAR ABEBE ([phone])[facility] ([facility])[address] [place] [address] NITRITE PRESENCE IN URINE Negative Normal Negative [facility] Comment on above: Performed By: #### L AB239 ####Release Manager: MARCELA LUCERO ([id number])[facility] ([facility])[address] [place] [address]#### [id number] ####Release Manager: KEMAR ABEBE ([phone])[facility] (SBHLAB)[address] [place] [address] pH (U) 5.0 [pH] Normal 5.0-8.0 [facility] Comment on above: Performed By: #### L AB239 ####Release Manager: MARCELA LUCERO ([id number])[facility] [place] [address]#### [id number] ####Release Manager: KEMAR ABEBE ([id number])[facility] (SBHLAB)[address] [place] [address] Protein (U) [Mass/Vol] 30 mg/dL Abnormal Negative [facility] Comment on above: Performed By: #### L AB239 ####Release Manager: MARCELA LUCERO ([id number])[facility] ([facility])[address] [place] [address]#### [id number] ####Release Manager: KEMAR ABEBE ([id number])[facility] (SBHLAB)[address] [place] [address] RBC (#/HPF) IN URINE SEDIMENT 0-2 Normal 0-2 [facility] Comment on above: Performed By: #### L AB239 ####Release Manager: MARCELA LUCERO ([id number])[facility] ([facility] [place] [address]#### [id number] ####Release Manager: KEMAR ABEBE ([id number])[facility] (SB[facility])[address] [place] [address] Specific gravity (U) [Rel density] 1.017 Normal 1.005-1.030 [facility] Comment on above: Result Comment: MARIE Doshi COMMENTS:This specimen has been reflexed to urine culture. Performed By: #### L AB239 ####Release Manager: MARCELA LUCERO ([phone])[facility] ([facility])[address] [place] [address]#### [id number] ####Release Manager: KEMAR ABEBE ([id number])[facility] (SB[facility])[address] [place] [address] SQUAMOUS EPITHELIAL CELLS (#/HPF) IN URINE SEDIMENT 0-2 Normal 3-5 [facility] Comment on above: Performed By: #### L AB239 ####Release Manager: MARCELA LUCERO ([id number])[facility] ([facility])[address] [place] [address]#### [id number] ####Release Manager: KEMAR ABEBE ([phone])[facility] (SB[facility])[address] [place] [address] UROBILINOGEN (MG/DL) IN URINE Normal Normal Normal (0-1) [facility] Comment on above: Performed By: #### L AB239 ####Release Manager: MARCELA LUCERO ([id number])[facility] ([facility])[address] [place] [address]#### [id number] ####Release Manager: KEMAR ABEBE ([id number])[facility] (SB[facility])[address] [place] [address] WBC (LEUKOCYTE) (#/HPF) IN URINE SEDIMENT 11-25 Abnormal 0-5 [facility] Comment on above: Performed By: #### L AB239 ####Release Manager: MARCELA LUCERO ([phone])[facility] ([facility])[address] [place] [address] [place]#### [id number] ####Release Manager: KEMAR ABEBE ([phone])[facility] (SBHLAB)[address] COMPREHENSIVE METABOLIC PANE Gigi 07-10-2025 Albumin [Mass/Vol] 3.3 g/dL Low 3.5-5.0 [facility] Comment on above: Performed By: #### L AB17, LAB99, [id number], [id number] ####Release Manager: KEMAR ABEBE ([id number])[facility] [place] ([facility])[address] ALP [Catalytic activity/Vol] 161 U/L Normal [facility] Comment on above: Performed By: #### L AB17, LAB99, [id number], [id number] ####Release Manager: KEMAR ABEBE ([id number])[facility] [place] ([facility])[address] ALT [Catalytic activity/Vol] 17 U/L Normal [facility] Comment on above: Performed By: #### Elijah AB17, LAB99, [id number], [id number] ####Release Manager: KEMAR ABEBE ([id number])[facility] ([facility])[address] Anion gap [Moles/Vol] 11 mmol/L Normal 3-13 [facility] Comment on above: Performed By: #### L AB17, LAB99, [id number], [id number] ####Release Manager: KEMAR ABEBE ([id number])[facility] ([facility])[address] AST [Catalytic activity/Vol] 16 U/L Normal <34 [facility] Comment on above: Performed By: #### L AB17, LAB99, [id number], [id number] ####Release Manager: KEMAR ABEBE ([id number])[facility] [place] ([facility])[address] Bilirubin [Mass/Vol] 0.6 mg/dL Normal <1.2 [facility] Comment on above: Performed By: #### Elijah AB17, LAB99, [id number], [id number] ####Release Manager: KEMAR ABEBE ([id number])[facility] (SB[facility])[address] Calcium [Mass/Vol] 8.7 mg/dL Normal 8.4-10.2 [facility] Comment on above: Performed By: #### Elijah AB17, LAB99, [id number], [id number] ####Release Manager: KEMAR ABEBE ([id number])[facility] ([facility])[address] Chloride [Moles/Vol] 99 mmol/L Normal 98-[address] [facility] Comment on above: Performed By: #### Elijah AB17, LAB99, [id number], [id number] ####Release Manager: KEMAR ABEBE ([id number])[facility] (SB[facility])[address] CO2 [Moles/Vol] 29 mmol/L Normal 22-29 [facility] Comment on above: Performed By: #### Elijah AB17, LAB99, [id number], [id number] ####Release Manager: KEMAR ABEBE ([id number])[facility] (SBHL[facility])[address] Creatinine [Mass/Vol] 0.76 mg/dL Normal [facility] Comment on above: Performed By: #### Elijah AB17, LAB99, [id number], [id number] ####Release Manager: KEMAR ABEBE ([id number])[facility] (SB[facility])[address] GLOMERULAR FILTRATION RATE ML/MIN/1.73 SQ M.PREDICTED >90.0 Normal >60.0 [facility] Comment on above: Result Comment: Calc ulation based on the Chronic Kidney Disease Epidemiology Collaboration (CKD-EPI) equation refit without adjustment for race Performed By: #### L AB17, LAB99, [id number], [id number] ####Release Manager: KEMAR ABEBE ([id number])[facility] (SB[facility])[address] Glucose [Mass/Vol] 322 mg/dL High 74-100 [facility] Comment on above: Performed By: #### L AB17, LAB99, [id number], [id number] ####Release Manager: KEMAR ABEBE ([id number])[facility] (SB[facility])[address] Potassium [Moles/Vol] 4.5 mmol/L Normal 3.5-5.1 [facility] Comment on above: Result Comment: [facility] potassium values may be up to 0.5 mmol/L lower than serum values. Performed By: #### L AB17, LAB99, [id number], [id number] ####Release Manager: KEMAR LUDWIGSAAD ([id number])[facility] (SB[facility])[address] Protein [Mass/Vol] 7.0 g/dL Normal 6.4-8.3 [facility] Comment on above: Performed By: #### L AB17, LAB99, [id number], [id number] ####Release Manager: KEMAR ABEBE ([id number])[facility] ([facility])[address] Sodium [Moles/Vol] 139 mmol/L Normal 136-145 [facility] Comment on above: Performed By: #### L AB17, LAB99, [id number], [id number] ####Release Manager: KEMAR LUDWIGSAAD ([id number])[facility] (SBHLAB)[address] [place] [address] [place] Urea nitrogen [Mass/Vol] 19 mg/dL Normal 9-23 [facility] Comment on above: Performed By: #### L AB17, LAB99, [id number], [id number] ####Release Manager: KEMAR ABEBE ([id number])[facility] (SBHLAB)[address] [place], [place] [id number] [facility] CT ABDOMEN PELVIS W CONTRAST on 07-10-2025 CT ABDOMEN PELVIS W CONTRAST Normal [facility] CT Abdomen and Pelvis W cont rast Erica 07-10-2025 1. No acute findings or significant interval change, including cholelithiasis. Please see above for further details. Report Dictated on Electronically Signed By: Joel Haddad MD Electronically Signed Date/Time: 07/10/2025 8:23 PM EDT [facility] Patient Name: WILL ALVARADO : 1965 [...] again noted suggesting diastatic-type ventral hernia, similar. [facility] Joel Haddad MD - 07/10/2025 Patient [...] Electronically Signed Date/Time: 07/10/2025 8:23 PM EDT [facility] Radiology Study observation (narrative) [facility] CT Abdomen and Pelvis W cont rast IVOrdered By: Joel Haddad on 07-10-2025 [facility] Work Phone: Comprehensive metabolic 1998 panelon 07-10-2025 Albumin [Mass/Vol] 3.3 g/dL Low 3.5 - 5.0 g/dL [facility] ALP [Catalytic activity/Vol] 161 U/L [facility] ALT [Catalytic activity/Vol] 17 U/L [facility] Anion gap [Moles/Vol] 11 mmol/L 3 - 13 mmol/L [facility] AST [Catalytic activity/Vol] 16 U/L NINF - 34 U/L [facility] Bilirubin [Mass/Vol] 0.6 mg/dL NINF - 1.2 mg/dL [facility] Calcium [Mass/Vol] 8.7 mg/dL 8.4 - 10. 2 mg/dL [facility] Chloride [Moles/Vol] 99 mmol/L 98 - 10 7 mmol/L [facility] CO2 [Moles/Vol] 29 mmol/L 22 - 29 mmol/L [facility] Creatinine [Mass/Vol] 0.76 mg/dL [facility] GFR/1.73 sq M.predicted (S/P/Bld) [Vol rate/Area] - PINF [facility] Comment on above: Calculation based on the Chronic Kidney Disease Epidemiology Collaboration (CKD-EPI) equation refit without adjustment for race Glucose [Mass/Vol] 322 mg/dL High 74 - 100 mg/dL [facility] Potassium [Moles/Vol] 4.5 mmol/L 3.5 - 5.1 mmol/L [facility] Comment on above: Plasma potassium helen ues may be up to 0.5 mmol/L lower than serum values. Protein [Mass/Vol] 7 g/dL 6.4 - 8.3 g/dL [facility] Sodium [Moles/Vol] 139 mmol/L 136 - 145 mmol/L [facility] Urea nitrogen [Mass/Vol] 19 mg/dL 9 - 23 mg/dL [facility] ED Nursing Noteon 07-10-2025 ED Nursing Note Pt here to the ER vi a EMS from SNF c/o headache and nausea for the last couple of days. Normal [facility] ED Provider Noteon ED Provider Note Normal [facility] HIGH SENSITIVITY TROPONIN, S ERIAL BASELINEon 07-10-2025 TROPONIN HS SERIAL BASELINE <3 Normal [facility] Comment on above: Result Comment: In i ndividuals presenting with symptoms > 2h, a baseline troponin <= 5 ng/L suggests acutecardiac injury is unlikely and further serial testing is generally not indicated. Performed By: #### L AB17, LAB99, [id number], [id number] ####Release Manager: KEMAR ABEBE ([phone])[facility] [place] (SBAB)[address] [place] [address] HIGH SENSITIVITY TROPONIN, S ERIAL, SECOND TESTon 07-10-2025 2H TROPONIN HS (SERIAL 2ND TROPONIN) <3 Normal [facility] Comment on above: Result Comment: Delt a value was unable to be calculated as both baseline and serial troponin tests were below the level of quantitation. As both baseline and 2h troponin values are below the level of quantitation, acute cardiac injury is unlikely. Performed By: #### L [id number] ####Release Manager: KEMAR ABEBE ([id number])[facility] ([facility])[address] LIPASEon 07-10-2025 Lipase [Catalytic activity/Vol] 8 U/L Normal <[address] [facility] Comment on above: Performed By: #### L AB17, LAB99, [id number], [id number] ####Release Manager: KEMAR ABEBE ([phone])[facility] ([facility])[address] Laboratory - Chemistry and C hemistry - challengeon 07-10-2025 Beta hydroxybutyrate [Mass/Vol] 7.3 mg/dL High NINF - 2.8 mg/dL [facility] Lipase [Catalytic activity/Vol] 8 U/L NINF - 55 U/L [facility] Laboratory - Chemistry and C hemistry - challengeOrdered By: Denia Dailey on 07-10-2025 Base excess Calc (BldV) [Moles/Vol] 6.8 mmol/L High -3.0 - 3.0 mmol/L [facility] CO2 (BldV) [Partial pressure] 58.4 mm[Hg] High [facility] CO2 [Moles/Vol] 35.4 mmol/L High 23.0 - 30.0 mmol/L [facility] HCO3 (Bld) [Moles/Vol] 33.6 mmol/L High 21.0 - 30.0 mmol/L [facility] Oxygen (BldV) [Partial pressure] 73 mm[Hg] mm Hg [facility] pH (BldV) 7.378 [pH] 7.320 - 7.[address] [facility] Laboratory - Hematology and Cell countsOrdered By: Denia Dailey on 07-10-2025 Hemoglobin (Bld) [Mass/Vol] 12.9 g/dL 7.0 g/dl [facility] Lipase [Catalytic activity/V ol]on 07-10-2025 Interpretation and review of laboratory results Normal [facility] No Panel Informationon 07-10 2h Troponin HS (Serial 2nd Troponin) ng/L ng/L [facility] Comment on above: Delta value was unab le to be calculated as both baseline and serial troponin tests were below the level of quantitation. As both baseline and 2h troponin values are below the level of quantitation, acute cardiac injury is unlikely. [facility] Troponin HS Serial Baseline ng/L ng/L [facility] Comment on above: In individuals prese nting with symptoms > 2h, a baseline troponin <= 5 ng/L suggests acute cardiac injury is unlikely and further serial testing is generally not indicated. [facility] Interpretation and review of laboratory results Abnormal [facility] No Panel InformationOrdered By: Denia Dailey on 07-10-2025 Amount Of Oxygen 2L [facility] Interpretation and review of laboratory results Abnormal [facility] Source Of Oxygen Nasal Cannula (LPM) [facility] Assessment of oxygenation is best done with an arterial blood gas determination. Reference ranges for pO2, bicarbonate, and base excess are for mixed venous blood. Specimens drawn from a peripheral vein will often have higher values. [facility] URINE CULTUREon 07-10-2025 Bacteria identified Cx Nom (U) Normal [facility] Comment on above: Performed By: #### L AB239 ####Release Manager: MARCELA LUCERO ([id number])[facility] ([facility])[address] [place] [address]#### [id number] ####Release Manager: KEMAR ABEBE ([phone])[facility] (SBHLAB)[address] [place] [address] Urinalysis complete panel (U )Ordered By: Erickson Olmedo on 07-10-2025 Bacteria LM.HPF (Urine sed) [#/Area] Few Abnormal Negative /HPF [facility] Bilirubin Ql (U) Negative Negative mg/dL [facility] Clarity (U) Clear Clear [facility] Color (U) Light Yellow Lt. Yellow [facility] Epithelial cells.squamous LM.HPF (Urine sed) [#/Area] 0-[address] [facility] Glucose Ql (U) 300 mg/dL Abnormal Normal (<70) [facility] Hemoglobin Ql (U) Negative Negative mg/dL [facility] Interpretation and review of laboratory results Abnormal [facility] Ketones (U) [Mass/Vol] 10 mg/dL Abnormal Negative [facility] Leukocyte esterase Test strip Ql (U) 75 Abnormal Negative Kat/uL [facility] Mucus LM.HPF (Urine sed) [#/Area] Few Negative /LPF [facility] Nitrite Ql (U) Negative Negative [facility] pH (U) 5.0 [pH] 5.0 - 8.[address] [facility] Protein (U) [Mass/Vol] 30 mg/dL Abnormal Negative [facility] RBC LM.HPF (Urine sed) [#/Area] 0-[address] [facility] Specific gravity (U) [Rel density] 1.017 1.005 - 1.[address] [facility] Urobilinogen (U) [Mass/Vol] Normal Normal (0-1) mg/dL [facility] WBC LM.HPF (Urine sed) [#/Area] 11-[address] [facility] This specimen has be en reflexed to urine culture. [facility] Urinalysis, Routine (Dipstic k)on 07-10-2025 BILIRUBIN URINE Negative Normal Negative [facility] Comment on above: Order Comment: 103-1 Performed By: #### L 100.0500, L500.4050 #### [facility] Laboratory [address] [place], [address] Clarity (U) Clear Normal Clear [facility] Comment on above: Order Comment: 103-1 Performed By: #### L 100.0500, L500.4050 #### [facility] [address] [place], [address] Color (U) Yellow Normal Yellow [facility] Comment on above: Order Comment: 103-1 Performed By: #### L 100.0500, L500.4050 #### [facility] [address] [place], [address] GLUCOSE, UR 50 mg/dl Abnormal Normal [facility] Comment on above: Order Comment: 103-1 Performed By: #### L 100.0500, L500.4050 #### [facility] [address] [place], [address] KETONE UR Negative Normal Negative [facility] Comment on above: Order Comment: 103-1 Performed By: #### L 100.0500, L500.4050 #### [facility] [address] [place], [address] LEUK ESTERASE 25 /ul Abnormal Negative [facility] Comment on above: Order Comment: 103-1 Performed By: #### L 100.0500, L500.4050 #### [facility] [address] [place], [address] Nitrite Ql (U) Negative Normal Negative [facility] Comment on above: Order Comment: 103-1 Performed By: #### L 100.0500, L500.4050 #### [facility] [address] [place], [address] OCCULT BLOOD-UR 10 /ul Abnormal Negative [facility] Comment on above: Order Comment: 103-1 Performed By: #### L 100.0500, L500.4050 #### [facility] [address] [place], [address] pH UR 6.0 Normal 5.0 - 8.0 [facility] Comment on above: Order Comment: 103-1 Performed By: #### L 100.0500, L500.4050 #### [facility] [address] [place], [address] PROT DIPSTX 100 mg/dl Abnormal Negative [facility] Comment on above: Order Comment: 103-1 Performed By: #### L 100.0500, L500.4050 #### [facility] [address] [place], [address] SP.GR. DIPSTX 1.020 Normal 1.002-1.030 [facility] Comment on above: Order Comment: 103-1 Performed By: #### L 100.0500, L500.4050 #### [facility] [address] [place], [address] UROBILI Normal Normal Normal [facility] Comment on above: Order Comment: 103-1 Performed By: #### L 100.0500, L500.4050 #### [facility] [address] [place], [address] Vital signsOrdered By: Trever Dailey on 07-10-2025 Oxygen saturation in Venous blood 93.3 % [facility] CBC-Complete Blood Cnt No Di ffon 07-06-2025 Erythrocyte distribution width (RBC) [Ratio] 14.4 % Normal 11.6-14.6 [facility] Comment on above: Order Comment: 103-1 Performed By: #### L 100.0500, L500.4050 #### [facility] [address] [place], [address] Hematocrit (Bld) [Volume fraction] 35.3 % Low 37-47 [facility] Comment on above: Order Comment: 103-1 Performed By: #### L 100.0500, L500.4050 #### [facility] [address] [place], [address] Hemoglobin (Bld) [Mass/Vol] 10.9 g/dL Low 12.0-15.0 [facility] Comment on above: Order Comment: 103-1 Performed By: #### L 100.0500, L500.4050 #### [facility] [address] [place], [address] MCH (RBC) [Entitic mass] 26.0 pg Low 27.0-32.0 [facility] Comment on above: Order Comment: 103-1 Performed By: #### L 100.0500, L500.4050 #### [facility] [address] [place], [address] MCHC (RBC) [Mass/Vol] 30.9 g/dL Low 32-36 [facility] Comment on above: Order Comment: 103-1 Performed By: #### L 100.0500, L500.4050 #### [facility] [address] [place], [address] MCV (RBC) [Entitic vol] 84.0 fL Normal 81-99 [facility] Comment on above: Order Comment: 103-1 Performed By: #### L 100.0500, L500.4050 #### [facility] [address] [place], [address] Platelet mean volume (Bld) [Entitic vol] 10.4 fL Normal 6.2-12.0 [facility] Comment on above: Order Comment: 103-1 Performed By: #### L 100.0500, L500.4050 #### [facility] [address] [place], [address] Platelets (Bld) [#/Vol] 317 10*3/uL Normal 150-450 [facility] Comment on above: Order Comment: 103-1 Performed By: #### L 100.0500, L500.4050 #### [facility] [address] [place], [address] RBC (Bld) [#/Vol] 4.20 10*6/uL Normal 4.2-5.[address] [facility] Comment on above: Order Comment: 103-1 Performed By: #### L 100.0500, L500.4050 #### [facility] [address] [place], [address] RDW SD 43.9 fl Normal 35.1-43.9 [facility] Comment on above: Order Comment: 103-1 Performed By: #### L 100.0500, L500.4050 #### [facility] [address] [place], [address] WBC (Bld) [#/Vol] 7.3 10*3/uL Normal 4.4-11.0 [facility] Comment on above: Order Comment: 103-1 Performed By: #### L 100.0500, L500.4050 #### [facility] [address] [place], [address] Comprehensive Metabolic Prof macho 07-06-2025 Albumin [Mass/Vol] 3.7 g/dL Normal 3.5-5.0 [facility] Comment on above: Order Comment: 103-1 Performed By: #### L 100.0500, L500.4050 #### [facility] [address] [place], [address] Albumin/Globulin [Mass ratio] 1.3 {ratio} Normal 0.9-2.4 [facility] Comment on above: Order Comment: 103-1 Performed By: #### L 100.0500, L500.4050 #### [facility] [address] [place], [address] ALK PHOS 196 U/L High 35-104 [facility] Comment on above: Order Comment: 103-1 Performed By: #### L 100.0500, L500.4050 #### [facility] [address] [place], [address] ALT [Catalytic activity/Vol] 17 U/L Normal <=34 [facility] Comment on above: Order Comment: 103-1 Performed By: #### L 100.0500, L500.4050 #### [facility] [address] [place], [address] AST [Catalytic activity/Vol] 16 U/L Normal <=31 [facility] Comment on above: Order Comment: 103-1 Performed By: #### L 100.0500, L500.4050 #### [facility] [address] [place], [address] Bilirubin [Mass/Vol] 0.35 mg/dL Normal 0.00-1.30 [facility] Comment on above: Order Comment: 103-1 Performed By: #### L 100.0500, L500.4050 #### [facility] [address] [place], [address] BUN/CRE 30.4 RATIO High 10-20 [facility] Comment on above: Order Comment: 103-1 Performed By: #### L 100.0500, L500.4050 #### [facility] [address] [place], [address] Calcium [Mass/Vol] 9.0 mg/dL Normal 7.6-11.0 [facility] Comment on above: Order Comment: 103-1 Performed By: #### L 100.0500, L500.4050 #### [facility] [address] [place], [address] Chloride [Moles/Vol] 100 mmol/L Normal 98-108 [facility] Comment on above: Order Comment: 103-1 Performed By: #### L 100.0500, L500.4050 #### [facility] [address] [place], [address] CO2 [Moles/Vol] 27.9 mmol/L Normal 21.0-32.0 [facility] Comment on above: Order Comment: 103-1 Performed By: #### L 100.0500, L500.4050 #### [facility] [address] [place], [address] Creatinine [Mass/Vol] 0.65 mg/dL Low 0.70-1.20 [facility] Comment on above: Order Comment: 103-1 Performed By: #### L 100.0500, L500.4050 #### [facility] [address] [place], [address] GAP 9 Normal 5-15 [facility] Comment on above: Order Comment: 103-1 Performed By: #### L 100.0500, L500.4050 #### [facility] [address] [place], [address] GFR/1.73 sq M.predicted among non-blacks MDRD (S/P/Bld) [Vol rate/Area] 102 mL/min/{1.73_m2} Normal >60 [facility] Comment on above: Order Comment: 103-1 Result Comment: mL/m in/1.73m2 CKD-EPI Creatinine Equation (2020) Performed By: #### L 100.0500, L500.4050 #### [facility] [address] [place], [address] Globulin (S) [Mass/Vol] 2.9 g/dL Normal 2.2-4.2 [facility] Comment on above: Order Comment: 103-1 Performed By: #### L 100.0500, L500.4050 #### [facility] [address] [place], [address] Glucose [Mass/Vol] 166 mg/dL High 70-99 [facility] Comment on above: Order Comment: 103-1 Performed By: #### L 100.0500, L500.4050 #### [facility] [address] [place], [address] Potassium [Moles/Vol] 4.0 mmol/L Normal 3.3-5.1 [facility] Comment on above: Order Comment: 103-1 Performed By: #### L 100.0500, L500.4050 #### [facility] [address] [place], [address] Sodium [Moles/Vol] 137 mmol/L Normal 133-145 [facility] Comment on above: Order Comment: 103-1 Performed By: #### L 100.0500, L500.4050 #### [facility] [address] [place], [address] T PROT 6.6 g/dL Normal 5.9-8.4 [facility] Comment on above: Order Comment: 103-1 Performed By: #### L 100.0500, L500.4050 #### [facility] [address] [place], [address] Urea nitrogen [Mass/Vol] 20 mg/dL High 4-19 [facility] Comment on above: Order Comment: 103-1 Performed By: #### L 100.0500, L500.4050 #### [facility] [address] [place], [address] Hemoglobin A1con 07-06-2025 HbA1c (Bld) [Mass fraction] 7.5 % High <=5.6 [facility] Comment on above: Order Comment: 103- Result Comment: Norm al < 5.7 % Prediabetic 5.7 - 6.4 % Diabetic >or= 6.5 % Please note range changes. Performed By: #### L 100.0500, L500.4050 #### [facility] [address] [place], [address] Lipid Profileon 07-06-2025 CHOL:HDL 3.49 Normal [facility] Comment on above: Order Comment: 103- Performed By: #### L 100.0500, L500.4050 #### [facility] [address] [place], [address] Cholesterol [Mass/Vol] 162 mg/dL Normal <=200 [facility] Comment on above: Order Comment: 1031 Result Comment: Chol esterol level, Desirable <200 mg/dL Borderline high cholesterol 200-239 mg/dL High cholesterol >=240 mg/dL Recommendations of the NCEP Adult Treatment Panel for the following risk-cutoff thresholds for the [place] population. Performed By: #### L 100.0500, L500.4050 #### [facility] [address] [place], [address] Cholesterol in HDL [Mass/Vol] 46 mg/dL Normal [facility] Comment on above: Order Comment: 103-1 Result Comment: Sophy onal Cholesterol Education Program (NCEP) guidelines: <40 mg/dL: Low HDL-cholesterol (major risk factor for CHD) >= 60 mg/dL: High HDL-cholesterol (negative risk factor for CHD) HDL-cholesterol is affected by a number of factors, e.g. smoking, exercise, hormones, sex and age. Performed By: #### L 100.0500, L500.4050 #### [facility] [address] [place], [address] Cholesterol in LDL [Mass/Vol] 88 mg/dL Normal [facility] Comment on above: Order Comment: 103-1 Result Comment: Bord oumurt=816-706 mg/dL Higher Muoq=734 mg/dL or greater Friedwald Equation for LDL-C Performed By: #### L 100.0500, L500.4050 #### [facility] [address] [place], [address] Cholesterol in VLDL [Mass/Vol] 28 mg/dL Normal 5-40 [facility] Comment on above: Order Comment: 103-1 Performed By: #### L 100.0500, L500.4050 #### [facility] [address] [place], [address] Triglyceride [Mass/Vol] 139 mg/dL Normal [facility] Comment on above: Order Comment: 103-1 Result Comment: The drugs N-Acetylcysteine and Metamizole may falsely depress this assay. Normal range: <150 mg/dL Borderline High: 150-199 mg/dL High: 200-499 mg/dL Very High: >500 mg/dL Performed By: #### L 100.0500, L500.4050 #### [facility] [address] [place], [address] Microalb:Creat Ratio,Random URon 07-06-2025 Creatinine [Mass/Vol] 45.20 mg/dL Normal 28.00- 217.0 0 [facility] Comment on above: Performed By: #### L 100.0500, L500.4050 #### [facility] [address] [place], [address] MALB:CREAT 63.9 mg/g CRE High <30 mg/g CRE [facility] Comment on above: Performed By: #### L 100.0500, L500.4050 #### [facility] [address] [place], [address] MICROALBUMIN,UR 28.9 mg/L Normal <20 mg/L [facility] Comment on above: Performed By: #### L 100.0500, L500.4050 #### [facility] [address] [place], [address] 3607-05-2025 36 Appointment schedule d on 07/26 at 11am [address] 07-04-2025 36 Patient's BGL 04/26-07/02/2025 [place] [address] I called the facilit y to request another copy. [place] 6351606-29-2025 36 Downloaded blood glu cose log and insulin administration MAR to media tab for the period of 06/08 through 06/29 for provider review. [place] [address] [facility] and requested a new BGL with accompanying insulin administration record for 06/08-06/29 for provider review. States she will send it herself. Will watch for information and upload into media tab. [place] 6351606-28-2025 36 The pages are cut of f I cannot see the doses completely [address] 06-27-2025 36 Patient's BGL [place] 6351606-26-2025 36 Spoke with Sheri kelley t the facility. She will re-fax the insulin administration records for 05/29-06/18 for comparison with the BG log sent previously. [address] 06-22-2025 36 Unfortunately half t he document is cut off I cannot see what the Humulin U-500 base dose is, its on 1 page On the second page I can see the sliding scale [place] [address] Scanned faxed MAR fr om facility into media tab for dates 06/08/25 - 06/22/25 [facility] 36on 06-21-2025 36 Spoke with Sheri kelley t the facility who says she will fax the MAR record for 05/29 through 06/18 for comparison with the BGL by provider. Fax number provided was [phone] [facility] 36on 06-20-2025 36 Spoke with RN caring for Maria Luisa at the facility regarding need for MAR for 05/29 through 06/18 to be faxed for provider review for use of SSI and any missed doses. She states she will fax the MAR records from 05/29 - 06/18 to [phone]. [facility] 36 Please ask for MAR a nd med list I need to know if SS is ever used. Thank you [place] [address]on 06-19-2025 36 Patient's BGL [address] 06-14-2025 36 Faxed detailed insul in instructions to Nabil at [facility] as requested. Confirmation received via email. See media tab. [facility] 36on 06-13-[address] 06-12-2025 36 Phoned [facility] and spoke with pt's nurse, Sheri. Released the message to her. Agrees to fax her BGL and pt's med rec in 2 weeks to our office [phone] [place], [place] [address] [facility] 36 [place] [address]on 06-11-2025 36 Patient's BGL [facility] Basic Metabolic Profile (BMP )on 06-11-2025 BUN/CRE 23.2 RATIO High 10-20 [facility] Comment on above: Order Comment: 103-1 Performed By: #### L 100.0500, L500.4050 #### [facility] [address] [place], [address] Calcium [Mass/Vol] 9.1 mg/dL Normal 7.6-11.0 [facility] Comment on above: Order Comment: 103-1 Performed By: #### L 100.0500, L500.4050 #### [facility] [address] [place], [address] Chloride [Moles/Vol] 104 mmol/L Normal 98-108 [facility] Comment on above: Order Comment: 103-1 Performed By: #### L 100.0500, L500.4050 #### [facility] [address] [place], [address] CO2 [Moles/Vol] 29.0 mmol/L Normal 21.0-32.0 [facility] Comment on above: Order Comment: 103-1 Performed By: #### L 100.0500, L500.4050 #### [facility] [address] [place], [address] Creatinine [Mass/Vol] 0.67 mg/dL Low 0.70-1.20 [facility] Comment on above: Order Comment: 103-1 Performed By: #### L 100.0500, L500.4050 #### [facility] [address] [place], [address] GAP 9 Normal 5-15 [facility] Comment on above: Order Comment: 103-1 Performed By: #### L 100.0500, L500.4050 #### [facility] [address] [place], [address] GFR/1.73 sq M.predicted among non-blacks MDRD (S/P/Bld) [Vol rate/Area] 101 mL/min/{1.73_m2} Normal >60 [facility] Comment on above: Order Comment: 103-1 Result Comment: mL/m in/1.73m2 CKD-EPI Creatinine Equation (2020) Performed By: #### L 100.0500, L500.4050 #### [facility] [address] [place], [address] Glucose [Mass/Vol] 136 mg/dL High 70-99 [facility] Comment on above: Order Comment: 103-1 Performed By: #### L 100.0500, L500.4050 #### [facility] [address] [place], [address] Potassium [Moles/Vol] 4.3 mmol/L Normal 3.3-5.1 [facility] Comment on above: Order Comment: 103-1 Performed By: #### L 100.0500, L500.4050 #### [facility] [address] [place], [address] Sodium [Moles/Vol] 142 mmol/L Normal 133-145 [facility] Comment on above: Order Comment: 103-1 Performed By: #### L 100.0500, L500.4050 #### [facility] [address] [place], [address] Urea nitrogen [Mass/Vol] 16 mg/dL Normal 4-19 [facility] Comment on above: Order Comment: 103-1 Performed By: #### L 100.0500, L500.4050 #### [facility] [address] [place], [address] CBC-Complete Blood Cnt No Di ffon 06-11-2025 Erythrocyte distribution width (RBC) [Ratio] 14.7 % High 11.6-14.6 [facility] Comment on above: Order Comment: 103.1 Performed By: #### L 500.2500, L100.0500 #### [facility] [address] [place], [address] Hematocrit (Bld) [Volume fraction] 34.7 % Low 37-47 [facility] Comment on above: Order Comment: 103.1 Performed By: #### L 500.2500, L100.0500 #### [facility] [address] [place], [address] Hemoglobin (Bld) [Mass/Vol] 10.5 g/dL Low 12.0-15.0 [facility] Comment on above: Order Comment: 103.1 Performed By: #### L 500.2500, L100.0500 #### [facility] [address] [place], [address] MCH (RBC) [Entitic mass] 26.5 pg Low 27.0-32.0 [facility] Comment on above: Order Comment: 103.1 Performed By: #### L 500.2500, L100.0500 #### [facility] [address] [place], [address] MCHC (RBC) [Mass/Vol] 30.3 g/dL Low 32-36 [facility] Comment on above: Order Comment: 103.1 Performed By: #### L 500.2500, L100.0500 #### [facility] [address] [place], [address] MCV (RBC) [Entitic vol] 87.6 fL Normal 81-99 [facility] Comment on above: Order Comment: 103.1 Performed By: #### L 500.2500, L100.0500 #### [facility] [address] [place], [address] Platelet mean volume (Bld) [Entitic vol] 10.3 fL Normal 6.2-12.0 [facility] Comment on above: Order Comment: 103.1 Performed By: #### L 500.2500, L100.0500 #### [facility] [address] [place], [address] Platelets (Bld) [#/Vol] 295 10*3/uL Normal 150-450 [facility] Comment on above: Order Comment: 103.1 Performed By: #### L 500.2500, L100.0500 #### [facility] [address] [place], [address] RBC (Bld) [#/Vol] 3.96 10*6/uL Low 4.2-5.[address] [facility] Comment on above: Order Comment: 103.1 Performed By: #### L 500.2500, L100.0500 #### [facility] [address] [place], [address] RDW SD 47.3 fl High 35.1-43.9 [facility] Comment on above: Order Comment: 103.1 Performed By: #### L 500.2500, L100.0500 #### [facility] [address] [place], [address] WBC (Bld) [#/Vol] 7.6 10*3/uL Normal 4.4-11.0 [facility] Comment on above: Order Comment: 103.1 Performed By: #### L 500.2500, L100.0500 #### [facility] [address] [place], [address] [id number] 06-07-2025 [id number] Normal [facility] 36on 06-07-2025 36 Patient's BGL Normal [facility] Anesthesia Noteon 06-07-2025 Anesthesia Note Normal [facility] Anesthesia Note Normal [facility] Nursing Noteon 06-07-2025 Nursing Note Normal [facility] Op Noteon 06-07-2025 Op Note [facility] 36on 06-04-2025 36 Normal [facility] 36on 06-01-2025 36 Normal [facility] 36on 05-31-2025 36 Patient's BGL Normal [facility] 36 Normal [facility] 36on 05-18-2025 36 Called [facility] and talk with nurse, she don't know and transfer to ergonomist, put me in hold for 25 min and never answer, if they call back please ask what they need . Thank you. [facility] 36 Not sure what is jayne ng asked. Did not order dietary restrictions, only recommendations. [facility] 36on 05-14-2025 36 Please advise! [facility] 36 Normal [facility] Basic Metabolic Profile (BMP )on 05-10-2025 BUN/CRE 25.7 RATIO High 10-20 [facility] Comment on above: Order Comment: 103-1 Performed By: #### L 100.0500, L500.4050 #### [facility] [address] [place], [address] Calcium [Mass/Vol] 8.8 mg/dL Normal 7.6-11.0 [facility] Comment on above: Order Comment: 103-1 Performed By: #### L 100.0500, L500.4050 #### [facility] [address] [place], [address] Chloride [Moles/Vol] 103 mmol/L Normal 98-108 [facility] Comment on above: Order Comment: 103-1 Performed By: #### L 100.0500, L500.4050 #### [facility] [address] [place], [address] CO2 [Moles/Vol] 26.2 mmol/L Normal 21.0-32.0 [facility] Comment on above: Order Comment: 103-1 Performed By: #### L 100.0500, L500.4050 #### [facility] [address] [place], [address] Creatinine [Mass/Vol] 0.64 mg/dL Low 0.70-1.20 [facility] Comment on above: Order Comment: 103-1 Performed By: #### L 100.0500, L500.4050 #### [facility] [address] [place], [address] GAP 10 Normal 5-15 [facility] Comment on above: Order Comment: 103-1 Performed By: #### L 100.0500, L500.4050 #### [facility] [address] [place], [address] GFR/1.73 sq M.predicted among non-blacks MDRD (S/P/Bld) [Vol rate/Area] 102 mL/min/{1.73_m2} Normal >60 [facility] Comment on above: Order Comment: 103-1 Result Comment: mL/m in/1.73m2 CKD-EPI Creatinine Equation (2020) Performed By: #### L 100.0500, L500.4050 #### [facility] [address] [place], [address] Glucose [Mass/Vol] 202 mg/dL High 70-99 [facility] Comment on above: Order Comment: 103-1 Performed By: #### L 100.0500, L500.4050 #### [facility] [address] [place], [address] Potassium [Moles/Vol] 4.5 mmol/L Normal 3.3-5.1 [facility] Comment on above: Order Comment: 103-1 Performed By: #### L 100.0500, L500.4050 #### [facility] [address] [place], [address] Sodium [Moles/Vol] 140 mmol/L Normal 133-145 [facility] Comment on above: Order Comment: 103-1 Performed By: #### L 100.0500, L500.4050 #### [facility] [address] [place], [address] Urea nitrogen [Mass/Vol] 16 mg/dL Normal 4-19 [facility] Comment on above: Order Comment: 103-1 Performed By: #### L 100.0500, L500.4050 #### [facility] [address] [place], [address] CBC-Complete Blood Cnt No Di ffon 05-10-2025 Erythrocyte distribution width (RBC) [Ratio] 14.9 % High 11.6-14.6 [facility] Comment on above: Order Comment: 103-1 Performed By: #### L 100.0500, L500.4050 #### [facility] [address] [place], [address] Hematocrit (Bld) [Volume fraction] 34.2 % Low 37-47 [facility] Comment on above: Order Comment: 103-1 Performed By: #### L 100.0500, L500.4050 #### [facility] [address] [place], [address] Hemoglobin (Bld) [Mass/Vol] 10.5 g/dL Low 12.0-15.0 [facility] Comment on above: Order Comment: 103-1 Performed By: #### L 100.0500, L500.4050 #### [facility] [address] [place], [address] MCH (RBC) [Entitic mass] 26.9 pg Low 27.0-32.0 [facility] Comment on above: Order Comment: 103-1 Performed By: #### L 100.0500, L500.4050 #### [facility] [address] [place], [address] MCHC (RBC) [Mass/Vol] 30.7 g/dL Low 32-36 [facility] Comment on above: Order Comment: 103-1 Performed By: #### L 100.0500, L500.4050 #### [facility] [address] [place], [address] MCV (RBC) [Entitic vol] 87.5 fL Normal 81-99 [facility] Comment on above: Order Comment: 103-1 Performed By: #### L 100.0500, L500.4050 #### [facility] [address] [place], [address] Platelet mean volume (Bld) [Entitic vol] 10.1 fL Normal 6.2-12.0 [facility] Comment on above: Order Comment: 103-1 Performed By: #### L 100.0500, L500.4050 #### [facility] [address] [place], [address] Platelets (Bld) [#/Vol] 318 10*3/uL Normal 150-450 [facility] Comment on above: Order Comment: 103-1 Performed By: #### L 100.0500, L500.4050 #### [facility] [address] [place], [address] RBC (Bld) [#/Vol] 3.91 10*6/uL Low 4.2-5.[address] [facility] Comment on above: Order Comment: 103-1 Performed By: #### L 100.0500, L500.4050 #### [facility] [facility] [address] [place], [address] RDW SD 47.7 fl High 35.1-43.9 [facility] Comment on above: Order Comment: 103-1 Performed By: #### L 100.0500, L500.4050 #### [facility] [address] [place], [address] WBC (Bld) [#/Vol] 6.5 10*3/uL Normal 4.4-11.0 [facility] Comment on above: Order Comment: 103-1 Performed By: #### L 100.0500, L500.4050 #### [facility] [address] [place], [address] 36on 05-07-2025 36 Called patient's [facility] and informed. Normal [facility] 36 Continue current dos es Recommend future BGLs be sent in 4 week intervals. Or sooner if experiencing hypoglycemia or persistent elevations. Normal [facility] 36 Patient's BGL Normal [facility] 36on 05-01-2025 36 Called patient nurse at [facility] and informed. Normal [facility] 36 Normal [facility] 36on 04-30-2025 36 Patient's BGL Normal [facility] 36on 04-24-2025 36 Called patient nurse Juliane at [facility] and informed! Normal [facility] 36on 04-23-2025 36 Patient's BGL Normal [facility] 36on 04-20-2025 36 Called and relayed t he TE below to the pt's nurse. [facility] 36on 04-19-2025 36 Continue current dos es. Future blood glucose log's requested to have 2 weeks of data. [facility] 3604-17-2025 36 BGL downloaded in or travis for your review. Thanks [facility] 36on 04-06-2025 36 Faxed BG recommendat ion to [facility] at fax #: [phone]. Normal [facility] AMB POC HEMOGLOBIN A1Con HbA1c (Bld) [Mass fraction] 6.8 % Abnormal - 5.7 % [facility] HbA1c (Bld) [Mass fraction]o n 04-06-2025 Interpretation and review of laboratory results Abnormal [facility] Progress Noteon 04-06-2025 Progress Note [facility] 36on 04-05-2025 36 Good Afternoon, I reviewed blood sugars for Maria Luisa, and they are mostly stable. There are no hypoglycemic events and blood sugars are not in the 300s on this log which is fantastic. No changes recommended at this time. Thanks! [facility] 36 Patient's BGL Normal [place] [address]on 03-27-2025 36 [place] [address]on 03-16-2025 36 Faxed recommendation s to [facility] fax #: [phone]. Normal [facility] 36on 03-15-2025 36 Reviewed BLG. Blood sugars are variable ranging between 117-359. No insulin dose changes. Blood sugars are improving. [facility] 3603-14-2025 36 We received recent B GL's regarding the pt, please advise. [place] [address]on 02-27-2025 36 Patient's BGL Normal [facility] Anion gap in Serum or Plasma Ordered By: Jared Guzman on 02-26-2025 Anion gap [Moles/Vol] 12 mmol/L 5-15 [facility] BUN/creatinine ratioOrdered By: Jared uGzman on 02-26-2025 Urea nitrogen/Creatinine [Mass ratio] 22.4 mg/mg High 10-20 [facility] Carbon dioxide, total [Moles /volume] in Central venous bloodOrdered By: Jared Guzman on 02-26-2025 CO2 [Moles/Vol] 25.7 mmol/L 21.0-32.0 [facility] Chloride assayOrdered By: Marcel Piper on 02-26-2025 Chloride [Moles/Vol] 101 mmol/L 98-108 [facility] GFR/1.73 sq M.predicted belinda g non-blacks MDRD (S/P/Bld) [Vol rate/Area]Ordered By: Jared Guzman on 02-26-2025 Estimated GFR (MDRD) Non-Af Amer 101 >60 [facility] Comment on above: mL/min/1.73m2 CKD-EP I Creatinine Equation (2020) Glomerular filtration rate ( GFR) estimation/1.73 sq m using serum, plasma, or whole bOrdered By: Jared Guzman on 02-26-2025 GFR/1.73 sq M.predicted among non-blacks MDRD (S/P/Bld) [Vol rate/Area] 101 mL/min/{1.73_m2} >60 [facility] Comment on above: mL/min/1.73m2 CKD-EP I Creatinine Equation (2020) Potassium (Unsp spec) [Mass/ Vol]Ordered By: Jared Guzman on 02-26-2025 Potassium [Moles/Vol] 4.0 mmol/L 3.3-5.1 [facility] Potassium measurement (mass/ volume)Ordered By: Jared Guzman on 02-26-2025 Potassium (Unsp spec) [Mass/Vol] 4.0 mmol/L 3.3-5.1 [facility] Renal Profileon 02-26-2025 Albumin [Mass/Vol] 3.7 g/dL Normal 3.5-5.0 [facility] Comment on above: Order Comment: UNKNO WN METHOD OF COLLECTION CLEAN CATCH Performed By: #### M 100.2200, L400.0001 #### [facility] [address] [place], [address] BUN/CRE 22.4 RATIO High 10-20 [facility] Comment on above: Order Comment: UNKNO WN METHOD OF COLLECTION CLEAN CATCH Performed By: #### M 100.2200, L400.0001 #### [facility] [address] [place], [address] Calcium [Mass/Vol] 9.1 mg/dL Normal 7.6-11.0 [facility] Comment on above: Order Comment: UNKNO WN METHOD OF COLLECTION CLEAN CATCH Performed By: #### M 100.2200, L400.0001 #### [facility] [address] [place], [address] Chloride [Moles/Vol] 101 mmol/L Normal 98-108 [facility] Comment on above: Order Comment: UNKNO WN METHOD OF COLLECTION CLEAN CATCH Performed By: #### M 100.2200, L400.0001 #### [facility] [address] [place], [address] CO2 [Moles/Vol] 25.7 mmol/L Normal 21.0-32.0 [facility] Comment on above: Order Comment: UNKNO WN METHOD OF COLLECTION CLEAN CATCH Performed By: #### M 100.2200, L400.0001 #### [facility] [address] [place], [address] Creatinine [Mass/Vol] 0.68 mg/dL Low 0.70-1.20 [facility] Comment on above: Order Comment: UNKNO WN METHOD OF COLLECTION CLEAN CATCH Performed By: #### M 100.2200, L400.0001 #### [facility] [address] [place], [address] GAP 12 Normal 5-15 [facility] Comment on above: Order Comment: UNKNO WN METHOD OF COLLECTION CLEAN CATCH Performed By: #### M 100.2200, L400.0001 #### [facility] [address] [place], [address] GFR/1.73 sq M.predicted among non-blacks MDRD (S/P/Bld) [Vol rate/Area] 101 mL/min/{1.73_m2} Normal >60 [facility] Comment on above: Order Comment: UNKNO WN METHOD OF COLLECTION CLEAN CATCH Result Comment: mL/m in/1.73m2 CKD-EPI Creatinine Equation (2020) Performed By: #### M 100.2200, L400.0001 #### [facility] [address] [place], [address] Glucose [Mass/Vol] 211 mg/dL High 70-99 [facility] Comment on above: Order Comment: UNKNO WN METHOD OF COLLECTION CLEAN CATCH Performed By: #### M 100.2200, L400.0001 #### [facility] [address] [place], [address] Phosphate [Mass/Vol] 4.2 mg/dL Normal 2.7-4.5 [facility] Comment on above: Order Comment: UNKNO WN METHOD OF COLLECTION CLEAN CATCH Performed By: #### M 100.2200, L400.0001 #### [facility] [address] [place], [address] Potassium [Moles/Vol] 4.0 mmol/L Normal 3.3-5.1 [facility] Comment on above: Order Comment: UNKNO WN METHOD OF COLLECTION CLEAN CATCH Performed By: #### M 100.2200, L400.0001 #### [facility] [address] [place], [address] Sodium [Moles/Vol] 139 mmol/L Normal 133-145 [facility] Comment on above: Order Comment: UNKNO WN METHOD OF COLLECTION CLEAN CATCH Performed By: #### M 100.2200, L400.0001 #### [facility] [address] [place], [address] Urea nitrogen [Mass/Vol] 15 mg/dL Normal 4- [facility] Comment on above: Order Comment: UNKNO WN METHOD OF COLLECTION CLEAN CATCH Performed By: #### M 100.4300, L400.0001 #### [facility] [address] [place], [address] Serum creatinine measurement (mass/volume)Ordered By: Jared Guzman on 02-26-2025 Creatinine [Mass/Vol] 0.68 mg/dL Low 0.70-1.20 [facility] Serum glucose measurement (m ass/volume)Ordered By: Jared Guzman on 02-26-2025 Glucose [Mass/Vol] 211 mg/dL High 70-99 [facility] Serum or plasma albumin mauricio urement (mass/volume)Ordered By: Jared Guzman on 02-26-2025 Albumin [Mass/Vol] 3.7 g/dL 3.5-5.0 [facility] Serum or plasma calcium mauricio urement (mass/volume)Ordered By: Jared Guzman on 02-26-2025 Calcium [Mass/Vol] 9.1 mg/dL 7.6-11.0 [facility] Serum or plasma urea nitroge n measurement (mass/volume)Ordered By: Jared Guzman on 02-26-2025 Urea nitrogen [Mass/Vol] 15 mg/dL - [facility] Serum phosphorus measurement Ordered By: Jared Guzman on 02-26-2025 Phosphorus Level 4.2 mg/dL 2.7-4.5 [facility] Sodium levelOrdered By: Main Guzman on 02-26-2025 Sodium [Moles/Vol] 139 mmol/L 133-145 [facility] 02-16-2025 36 Faxed letter to [facility] at fax #: [phone]. [facility] 02-15-2025 36 [facility] 36 Patient's BGL [facility] 02-13-2025 36 Called [facility] to offer cancel the [facility] visit per provider. Visit canceled. [facility] 02-12-2025 36 Nurse from [facility] called to schedule Annual follow up. Follow up scheduled for 03/02/2025. Patient is non weight bearing and uses a [facility]. Further question is whether they bring with [facility] or ambulance cot. Please advise. [facility] 36on 02-09-2025 36 [facility] at fax #: [phone]. Normal [facility] No Panel InformationOrdered By: Corin Man on 02-09-2025 Left arm BP 146 mmHg [email or web address] Phone: Left TBI 0.95 [email or web address] Phone: Left toe pressure 138 mmHg [email or web address] Phone: Right arm BP 145 mmHg [email or web address] Phone: [phone] No Panel Informationon 02-09 Left side findings: [...] cuff method used due to body habitus. Car Mover Details A spectral Doppler analysis ultrasound was performed. Pulsed volume recording (PVR) and photo plethysmography was performed. The exam was performed with the patient in the supine position. Overall the study quality was adequate. Study was technically difficult due to: body habitus. [facility] 36on 02-08-2025 36 Normal [facility] 36 [facility] Radiology called stating that CT chest wo IV contrast order will before its completion. Requested new order to be placed. Please advise. Normal [facility] 36on 02-07-2025 36 Patient's BGL Normal [facility] Anion gap in Serum or Plasma Ordered By: Jared Guzman on 02-07-2025 Anion gap [Moles/Vol] 10 mmol/L 5-15 [facility] BUN/creatinine ratioOrdered By: Jared Guzman on 02-07-2025 Urea nitrogen/Creatinine [Mass ratio] 21.4 mg/mg High 10-20 [facility] Basic Metabolic Profile (BMP )on 02-07-2025 BUN/CRE 21.4 RATIO High 10-20 [facility] Comment on above: Order Comment: 103.1 Performed By: #### L 100.0500, L500.2500 #### [facility] [address] [place], [address] Calcium [Mass/Vol] 9.0 mg/dL Normal 7.6-11.0 [facility] Comment on above: Order Comment: 103.1 Performed By: #### L 100.0500, L500.2500 #### [facility] [address] [place], [address] Chloride [Moles/Vol] 102 mmol/L Normal 98-108 [facility] Comment on above: Order Comment: 103.1 Performed By: #### L 100.0500, L500.2500 #### [facility] [address] [place], [address] CO2 [Moles/Vol] 27.2 mmol/L Normal 21.0-32.0 [facility] Comment on above: Order Comment: 103.1 Performed By: #### L 100.0500, L500.2500 #### [facility] [address] [place], [address] Creatinine [Mass/Vol] 0.56 mg/dL Low 0.70-1.20 [facility] Comment on above: Order Comment: 103.1 Performed By: #### L 100.0500, L500.2500 #### [facility] [address] [place], [address] GAP 10 Normal 5-15 [facility] Comment on above: Order Comment: 103.1 Performed By: #### L 100.0500, L500.2500 #### [facility] [address] [place], [address] GFR/1.73 sq M.predicted among non-blacks MDRD (S/P/Bld) [Vol rate/Area] 106 mL/min/{1.73_m2} Normal >60 [facility] Comment on above: Order Comment: 103.1 Result Comment: mL/m in/1.73m2 CKD-EPI Creatinine Equation (2020) Performed By: #### L 100.0500, L500.2500 #### [facility] [address] [place], [address] Glucose [Mass/Vol] 113 mg/dL High 70-99 [facility] Comment on above: Order Comment: 103.1 Performed By: #### L 100.0500, L500.2500 #### [facility] [address] [place], [address] Potassium [Moles/Vol] 4.2 mmol/L Normal 3.3-5.1 [facility] Comment on above: Order Comment: 103.1 Performed By: #### L 100.0500, L500.2500 #### [facility] [address] [place], [address] Sodium [Moles/Vol] 140 mmol/L Normal 133-145 [facility] Comment on above: Order Comment: 103.1 Performed By: #### L 100.0500, L500.2500 #### [facility] [address] [place], [address] Urea nitrogen [Mass/Vol] 12 mg/dL Normal 4-19 [facility] Comment on above: Order Comment: 103.1 Performed By: #### L 100.0500, L500.2500 #### [facility] [address] [place], [address] CBC-Complete Blood Cnt No Di ffon 02-07-2025 Erythrocyte distribution width (RBC) [Ratio] 14.5 % Normal 11.6-14.6 [facility] Comment on above: Order Comment: 103.1 Performed By: #### L 100.0500, L500.2500 #### [facility] [address] [place], [address] Hematocrit (Bld) [Volume fraction] 34.7 % Low 37-47 [facility] Comment on above: Order Comment: 103.1 Performed By: #### L 100.0500, L500.2500 #### [facility] [address] [place], [address] Hemoglobin (Bld) [Mass/Vol] 11.1 g/dL Low 12.0-15.0 [facility] Comment on above: Order Comment: 103.1 Performed By: #### L 100.0500, L500.2500 #### [facility] [address] [place], [address] MCH (RBC) [Entitic mass] 27.1 pg Normal 27.0-32.0 [facility] Comment on above: Order Comment: 103.1 Performed By: #### L 100.0500, L500.2500 #### [facility] [address] [place], [address] MCHC (RBC) [Mass/Vol] 32.0 g/dL Normal 32-36 [facility] Comment on above: Order Comment: 103.1 Performed By: #### L 100.0500, L500.2500 #### [facility] [address] [place], [address] MCV (RBC) [Entitic vol] 84.6 fL Normal 81-99 [facility] Comment on above: Order Comment: 103.1 Performed By: #### L 100.0500, L500.2500 #### [facility] [address] [place], [address] Platelet mean volume (Bld) [Entitic vol] 10.3 fL Normal 6.2-12.0 [facility] Comment on above: Order Comment: 103.1 Performed By: #### L 100.0500, L500.2500 #### [facility] [address] [place], [address] Platelets (Bld) [#/Vol] 353 10*3/uL Normal 150-450 [facility] Comment on above: Order Comment: 103.1 Performed By: #### L 100.0500, L500.2500 #### [facility] [address] [place], [address] RBC (Bld) [#/Vol] 4.10 10*6/uL Low 4.2-5.[address] [facility] Comment on above: Order Comment: 103.1 Performed By: #### L 100.0500, L500.2500 #### [facility] [address] [place], [address] RDW SD 44.6 fl High 35.1-43.9 [facility] Comment on above: Order Comment: 103.1 Performed By: #### L 100.0500, L500.2500 #### [facility] [address] [place], [address] WBC (Bld) [#/Vol] 8.1 10*3/uL Normal 4.4-11.0 [facility] Comment on above: Order Comment: 103.1 Performed By: #### L 100.0500, L500.2500 #### [facility] [address] [place], [address] Carbon dioxide, total [Moles /volume] in Central venous bloodOrdered By: Jared Guzman on 02-07-2025 CO2 [Moles/Vol] 27.2 mmol/L 21.0-32.0 [facility] Chloride assayOrdered By: Marcel Piper on 02-07-2025 Chloride [Moles/Vol] 102 mmol/L 98-108 [facility] Erythrocyte distribution wid th (RBC) [Ratio]Ordered By: Jared Guzman on 02-07-2025 Erythrocyte distribution width (RBC) [Entitic vol] 44.6 fL High 35.1-43.9 [facility] Erythrocyte distribution wid th ratioOrdered By: Jared Guzman on 02-07-2025 Erythrocyte distribution width (RBC) [Ratio] 14.5 % 11.6-14.6 [facility] Erythrocyte distribution wid th standard deviationOrdered By: Jared Guzman on 02-07-2025 Erythrocyte distribution width (RBC) [Ratio] 44.6 fl High 35.1-43.9 [facility] GFR/1.73 sq M.predicted belinda g non-blacks MDRD (S/P/Bld) [Vol rate/Area]Ordered By: Jared Guzman on 02-07-2025 Estimated GFR (MDRD) Non-Af Amer 106 >60 [facility] Comment on above: mL/min/1.73m2 CKD-EP I Creatinine Equation (2020) Glomerular filtration rate ( GFR) estimation/1.73 sq m using serum, plasma, or whole bOrdered By: Jared Guzman on 02-07-2025 GFR/1.73 sq M.predicted among non-blacks MDRD (S/P/Bld) [Vol rate/Area] 106 mL/min/{1.73_m2} >60 [facility] Comment on above: mL/min/1.73m2 CKD-EP I Creatinine Equation (2020) Hematocrit Auto (Bld) [Volum e fraction]Ordered By: Jared Guzman on 02-07-2025 Hematocrit (Bld) [Volume fraction] 34.7 % Low 37-47 [facility] Hemoglobin measurementOrdere d By: Jared Guzman on 02-07-2025 Hemoglobin (Bld) [Mass/Vol] 11.1 g/dL Low 12.0-15.0 [facility] MCV (mean corpuscular volume ) determinationOrdered By: Jared Guzman on 02-07-2025 MCV (RBC) [Entitic vol] 84.6 fL 81-99 [facility] Mean corpuscular hemoglobin (MCH) determinationOrdered By: Jared Guzman on 02-07-2025 MCH (RBC) [Entitic mass] 27.1 pg 27.0-32.0 [facility] Mean corpuscular hemoglobin concentration (MCHC) determinationOrdered By: Jared Guzman on 02-07-2025 MCHC (RBC) [Mass/Vol] 32.0 g/dL 32-36 [facility] Mean platelet volume determi nationOrdered By: Jared Guzman on 02-07-2025 Platelet mean volume (Bld) [Entitic vol] 10.3 fL 6.2-12.0 [facility] Platelet countOrdered By: Marcel Piper on 02-07-2025 Platelets (Bld) [#/Vol] 353 10*3/uL 150-450 [facility] Potassium (Unsp spec) [Mass/ Vol]Ordered By: Jared Guzman on 02-07-2025 Potassium [Moles/Vol] 4.2 mmol/L 3.3-5.1 [facility] Potassium measurement (mass/ volume)Ordered By: Jared Guzman on 02-07-2025 Potassium (Unsp spec) [Mass/Vol] 4.2 mmol/L 3.3-5.1 [facility] RBC Auto (Bld) [#/Vol]Ordere d By: Jared Guzman on 02-07-2025 RBC (Bld) [#/Vol] 4.10 10*6/uL Low 4.2-5.[address] [facility] Serum creatinine measurement (mass/volume)Ordered By: Jared Guzman on 02-07-2025 Creatinine [Mass/Vol] 0.56 mg/dL Low 0.70-1.20 [facility] Serum glucose measurement (m ass/volume)Ordered By: Jared Guzman on 02-07-2025 Glucose [Mass/Vol] 113 mg/dL High 70-99 [facility] Serum or plasma calcium mauricio urement (mass/volume)Ordered By: Jared Guzman on 02-07-2025 Calcium [Mass/Vol] 9.0 mg/dL 7.6-11.0 [facility] Serum or plasma urea nitroge n measurement (mass/volume)Ordered By: Jared Guzman on 02-07-2025 Urea nitrogen [Mass/Vol] 12 mg/dL 4-19 [facility] Sodium levelOrdered By: Main Guzman on 02-07-2025 Sodium [Moles/Vol] 140 mmol/L 133-145 [facility] White blood cell (WBC) count Ordered By: Jared Guzman on 02-07-2025 WBC (Bld) [#/Vol] 8.1 10*3/uL 4.4-11.0 [facility] Progress Noteon 02-01-2025 Progress Note [facility] 3601-31-2025 36 Called SNF s/w Suma released message as written, she stated that she understood. [facility] 01-30-2025 36 [facility] 3601-29-2025 36 Patient's BGL [facility] 3601-19-2025 36 Faxed orders to [facility] at fax #: [phone]. [facility] 01-17-2025 36 [place] 6351601-15-2025 36 Patients BGL [facility] 01-11-2025 36 Called SNF s/w Sanjana released message as written, she stated that she understood and had no questions. [facility] 01-10-2025 36 [facility] 3601-08-2025 36 Patient's BGL [facility] 01-02-2025 36 Labs Noted [facility] 01-01-2025 36 Requested BGLs and a recent CMP was received , please advise. [facility] 01-01-2025 37 Please send Ophthalmology Note once completed this year. Please note if any insulin doses are held on blood log. [facility] Progress Noteon 01-01-2025 Progress Note [facility] 3612-29-2024 36 Called SNF s/w Ninfa released message as written, no insulin has been held. [facility] 12-28-2024 36 Called the nursing facility to schedule an appointment and spoke with Nabil, who stated that the pt nurse is not in today and that she will have her call our office when she is in. TY [facility] 36 ----- Message from JEREMY Bloom CNP sent at 12/21/2024 4:00 PM EST ----- Please schedule patient for EGD and colonoscopy-[facility] endoscopy. Please call nursing facility to schedule appointment. Thank you. Normal [facility] 36on 12-27-2024 36 Normal [facility] Albumin to globulin ratioOrd ered By: Jared Guzman on 12-27-2024 Albumin/Globulin [Mass ratio] 0.8 {ratio} Low 0.9-2.4 [facility] Bilirubin, totalOrdered By: Jared Guzman on 12-27-2024 Bilirubin [Mass/Vol] 0.40 mg/dL 0.20-1.00 [facility] Comment on above: For patients on eltr ombopag therapy, use of [facility] [place] TBIL is not recommended. Blood urea nitrogen (BUN)/cr eatinine ratioOrdered By: Jared Guzman on 12-27-2024 Urea nitrogen/Creatinine [Mass ratio] 14.4 mg/mg 10-20 [facility] CBC-Complete Blood Cnt No Di ffon 12-27-2024 Erythrocyte distribution width (RBC) [Ratio] 14.6 % Normal 11.6-14.6 [facility] Comment on above: Order Comment: 103-1 Performed By: #### L 100.0500, L500.4050 #### [facility] [address] [place], [address] Hematocrit (Bld) [Volume fraction] 34.5 % Low 37-47 [facility] Comment on above: Order Comment: 103-1 Performed By: #### L 100.0500, L500.4050 #### [facility] [address] [place], [address] Hemoglobin (Bld) [Mass/Vol] 10.9 g/dL Low 12.0-15.0 [facility] Comment on above: Order Comment: 103-1 Performed By: #### L 100.0500, L500.4050 #### [facility] [address] [place], [address] MCH (RBC) [Entitic mass] 27.2 pg Normal 27.0-32.0 [facility] Comment on above: Order Comment: 103-1 Performed By: #### L 100.0500, L500.4050 #### [facility] [address] [place], [address] MCHC (RBC) [Mass/Vol] 31.6 g/dL Low 32-36 [facility] Comment on above: Order Comment: 103-1 Performed By: #### L 100.0500, L500.4050 #### [facility] [address] [place], [address] MCV (RBC) [Entitic vol] 86.0 fL Normal 81-99 [facility] Comment on above: Order Comment: 103-1 Performed By: #### L 100.0500, L500.4050 #### [facility] [address] [place], [address] Platelet mean volume (Bld) [Entitic vol] 10.3 fL Normal 6.2-12.0 [facility] Comment on above: Order Comment: 103-1 Performed By: #### L 100.0500, L500.4050 #### [facility] [address] [place], [address] Platelets (Bld) [#/Vol] 350 10*3/uL Normal 150-450 [facility] Comment on above: Order Comment: 103-1 Performed By: #### L 100.0500, L500.4050 #### [facility] [address] [place], [address] RBC (Bld) [#/Vol] 4.01 10*6/uL Low 4.2-5.[address] [facility] Comment on above: Order Comment: 103-1 Performed By: #### L 100.0500, L500.4050 #### [facility] [address] [place], [address] RDW SD 45.5 fl High 35.1-43.9 [facility] Comment on above: Order Comment: 103-1 Performed By: #### L 100.0500, L500.4050 #### [facility] [address] [place], [address] WBC (Bld) [#/Vol] 6.9 10*3/uL Normal 4.4-11.0 [facility] Comment on above: Order Comment: 103-1 Performed By: #### L 100.0500, L500.4050 #### [facility] [address] [place], [address] Carbon dioxide measurementOr dered By: Jared Guzmna on 12-27-2024 CO2 [Moles/Vol] 29.0 mmol/L 21.0-32.0 [facility] Chloride measurementOrdered By: Jared Guzman on 12-27-2024 Chloride [Moles/Vol] 104 mmol/L 98-107 [facility] Comprehensive Metabolic Prof ilon 12-27-2024 Albumin [Mass/Vol] 2.8 g/dL Low 3.2-5.0 [facility] Comment on above: Order Comment: 103-1 Performed By: #### L 100.0500, L500.4050 #### [facility] [address] [place], [address] Albumin/Globulin [Mass ratio] 0.8 {ratio} Low 0.9-2.4 [facility] Comment on above: Order Comment: 103-1 Performed By: #### L 100.0500, L500.4050 #### [facility] [address] [place], [address] ALK P 152 U/L High 45-117 [facility] Comment on above: Order Comment: 103-1 Performed By: #### L 100.0500, L500.4050 #### [facility] [address] [place], [address] ALT [Catalytic activity/Vol] 32 U/L Normal 13-56 [facility] Comment on above: Order Comment: 103-1 Performed By: #### L 100.0500, L500.4050 #### [facility] [address] [place], [address] AST [Catalytic activity/Vol] 19 U/L Normal 15-37 [facility] Comment on above: Order Comment: 103-1 Performed By: #### L 100.0500, L500.4050 #### [facility] [address] [place], [address] Bilirubin [Mass/Vol] 0.40 mg/dL Normal 0.20-1.00 [facility] Comment on above: Order Comment: 103-1 Result Comment: For patients on eltrombopag therapy, use of Dimension [place] TBIL is not recommended. Performed By: #### L 100.0500, L500.4050 #### [facility] [address] [place], [address] BUN/CRE 14.4 RATIO Normal 10-20 [facility] Comment on above: Order Comment: 103-1 Performed By: #### L 100.0500, L500.4050 #### [facility] [address] [place], [address] CA,Total 9.4 mg/dL Normal 8.5-10.1 [facility] Comment on above: Order Comment: 103-1 Performed By: #### L 100.0500, L500.4050 #### [facility] [address] [place], [address] Chloride [Moles/Vol] 104 mmol/L Normal 98-107 [facility] Comment on above: Order Comment: 103-1 Performed By: #### L 100.0500, L500.4050 #### [facility] [address] [place], [address] CO2 [Moles/Vol] 29.0 mmol/L Normal 21.0-32.0 [facility] Comment on above: Order Comment: 103- Performed By: #### L 100.0500, L500.4050 #### [facility] [address] [place], [address] Creatinine [Mass/Vol] 0.56 mg/dL Normal 0.55-1.02 [facility] Comment on above: Order Comment: 103- Result Comment: The validity of the calculated GFR GFRAA in patients over 70 years has not been determined. Clinical correlation is essential. Performed By: #### L 100.0500, L500.4050 #### [facility] [address] [place], [address] EST GFR - AA 144 mL/min Normal >60 [facility] Comment on above: Order Comment: 103- Result Comment: Afri can [facility] GFR Calc Performed By: #### L 100.0500, L500.4050 #### [facility] [address] [place], [address] GAP 6 Normal 5-15 [facility] Comment on above: Order Comment: - Performed By: #### L 100.0500, L500.4050 #### [facility] [address] [place], [address] GFR/1.73 sq M.predicted among non-blacks MDRD (S/P/Bld) [Vol rate/Area] 119 mL/min/{1.73_m2} Normal >60 [facility] Comment on above: Order Comment: 103- Result Comment: Non- GFR Calc Performed By: #### L 100.0500, L500.4050 #### [facility] [address] [place], [address] Globulin (S) [Mass/Vol] 3.4 g/dL Normal 2.2-4.2 [facility] Comment on above: Order Comment: 103-1 Performed By: #### L 100.0500, L500.4050 #### [facility] [address] [place], [address] Glucose [Mass/Vol] 149 mg/dL High 74-106 [facility] Comment on above: Order Comment: 103-1 Result Comment: Fast ing Glucose result greater than or equal to 126 mg/dL suggests DIABETES MELLITUS per A.D.A. criteria. Performed By: #### L 100.0500, L500.4050 #### [facility] [address] [place], [address] Potassium [Moles/Vol] 3.9 mmol/L Normal 3.5-5.1 [facility] Comment on above: Order Comment: 103-1 Performed By: #### L 100.0500, L500.4050 #### [facility] [address] [place], [address] Sodium [Moles/Vol] 139 mmol/L Normal 136-145 [facility] Comment on above: Order Comment: 103-1 Performed By: #### L 100.0500, L500.4050 #### [facility] [address] [place], [address] T PROT 6.2 g/dL Low 6.4-8.2 [facility] Comment on above: Order Comment: 103-1 Performed By: #### L 100.0500, L500.4050 #### [facility] [address] [place], [address] Urea nitrogen [Mass/Vol] 8 mg/dL Normal 7-18 [facility] Comment on above: Order Comment: 103-1 Performed By: #### L 100.0500, L500.4050 #### [facility] [address] [place], [address] Erythrocyte distribution wid th ratioOrdered By: Jared Guzman on 12-27-2024 Erythrocyte distribution width (RBC) [Ratio] 14.6 % 11.6-14.6 [facility] Erythrocyte distribution wid th standard deviationOrdered By: Jared Guzman on 12-27-2024 Erythrocyte distribution width (RBC) [Entitic vol] 45.5 fL High 35.1-43.9 [facility] Erythrocyte distribution width (RBC) [Ratio] 45.5 fl High 35.1-43.9 [facility] Estimated glomerular filtrat ion rate (GFR) AmericanOrdered By: Jared Guzman on 12-27-2024 Estimated GFR (MDRD) Amer 144 mL/min >60 [facility] Comment on above: GFR Calc Glomerular filtration rate ( GFR) estimationOrdered By: Jared Guzman on 12-27-2024 Estimated GFR (MDRD) Non-Af Amer 119 mL/min >60 [facility] Comment on above: Non- GFR Calc GFR/1.73 sq M.predicted among non-blacks MDRD (S/P/Bld) [Vol rate/Area] 119 mL/min/{1.73_m2} >60 [facility] Comment on above: Non- GFR Calc Glucose measurementOrdered B y: Jared Guzman on 12-27-2024 Glucose [Mass/Vol] 149 mg/dL High 74-106 [facility] Comment on above: Fasting Glucose resu lt greater than or equal to 126 mg/dL suggests DIABETES MELLITUS per A.D.A. criteria. Hematocrit Auto (Bld) [Volum e fraction]Ordered By: Jared Guzman on 12-27-2024 Hematocrit (Bld) [Volume fraction] 34.5 % Low 37-47 [facility] Hemoglobin measurementOrdere d By: Jared Guzman on 12-27-2024 Hemoglobin (Bld) [Mass/Vol] 10.9 g/dL Low 12.0-15.0 [facility] High density lipoprotein (HD L) measurementOrdered By: Jared Guzman on 12-27-2024 Cholesterol in HDL [Mass/Vol] 43 mg/dL >40 [facility] Comment on above: The drugs N-Acetylcy steine and Metamizole may falsely depress this assay. Reference Range HDL <40 mg/dL Low HDL Cholesterol HDL >or= 60 mg/dL High HDL Cholesterol Laboratory - Chemistry and C hemistry - challengeOrdered By: Jared Guzman on 12-27-2024 AST [Catalytic activity/Vol] 19 U/L 15-37 [facility] Lipid Profileon 12-27-2024 Cholesterol [Mass/Vol] 178 mg/dL Normal 200 [facility] Comment on above: Order Comment: 103- Result Comment: <200 mg/dL Desirable 200-240 mg/dL Borderline >240 mg/dL High Risk Performed By: #### L 100.0500, L500.4050 #### [facility] [address] [place], [address] Cholesterol in HDL [Mass/Vol] 43 mg/dL Normal [facility] Comment on above: Order Comment: 103 Result Comment: The drugs N-Acetylcysteine and Metamizole may falsely depress this assay. Reference Range HDL <40 mg/dL Low HDL Cholesterol HDL >or= 60 mg/dL High HDL Cholesterol Performed By: #### L 100.0500, L500.4050 #### [facility] [address] [place], [address] Cholesterol in LDL [Mass/Vol] 99 mg/dL Normal 0-130 [facility] Comment on above: Order Comment: Performed By: #### L 100.0500, L500.4050 #### [facility] [address] [place], [address] Cholesterol in VLDL [Mass/Vol] 36 mg/dL Normal 5-40 [facility] Comment on above: Order Comment: Performed By: #### L 100.0500, L500.4050 #### [facility] [address] [place], [address] Triglyceride [Mass/Vol] 181 mg/dL Normal [facility] Comment on above: Order Comment: 103 Result Comment: The drugs N-Acetylcysteine and Metamizole may falsely depress this assay. Serum Triglycerides Reference Interval Normal <150 mg/dL Borderline high 150 - 199 mg/dL High 200 - 499 mg/dL Very High > or = 500 mg/dL Performed By: #### L 100.0500, L500.4050 #### [facility] [place], [address] Low density lipoprotein (LDL ) cholesterol measurementOrdered By: Jared Guzman on 12-27-2024 Cholesterol in LDL [Mass/Vol] 99 mg/dL 0-130 [facility] MCV (mean corpuscular volume ) determinationOrdered By: Jared Guzman on 12-27-2024 MCV (RBC) [Entitic vol] 86.0 fL 81-99 [facility] Mean corpuscular hemoglobin (MCH) determinationOrdered By: Jared Guzman on 12-27-2024 MCH (RBC) [Entitic mass] 27.2 pg 27.0-32.0 [facility] Mean corpuscular hemoglobin concentration (MCHC) determinationOrdered By: Jared Guzman on 12-27-2024 MCHC (RBC) [Mass/Vol] 31.6 g/dL Low 32-36 [facility] Mean platelet volume determi nationOrdered By: Jared Guzman on 12-27-2024 Platelet mean volume (Bld) [Entitic vol] 10.3 fL 6.2-12.0 [facility] Platelet countOrdered By: Marcel Piper on 12-27-2024 Platelets (Bld) [#/Vol] 350 10*3/uL 150-450 [facility] Potassium measurementOrdered By: Jared Guzman on 12-27-2024 Potassium [Moles/Vol] 3.9 mmol/L 3.5-5.1 [facility] RBC Auto (Bld) [#/Vol]Ordere d By: Jared Guzman on 12-27-2024 RBC (Bld) [#/Vol] 4.01 10*6/uL Low 4.2-5.[address] [facility] Serum anion gap measurementO rdered By: Jared Guzman on 12-27-2024 Anion gap [Moles/Vol] 6 mmol/L 5-15 [facility] Serum globulin measurementOr dered By: Jared Guzman on 12-27-2024 Globulin (S) [Mass/Vol] 3.4 g/dL 2.2-4.2 [facility] Serum or plasma alanine jones otransferase (ALT) measurementOrdered By: Jared Guzman on 12-27-2024 ALT [Catalytic activity/Vol] 32 U/L 13-56 [facility] Serum or plasma albumin mauricio urement (mass/volume)Ordered By: Jared Guzman on 12-27-2024 Albumin [Mass/Vol] 2.8 g/dL Low 3.2-5.0 [facility] Serum or plasma alkaline abbey sphatase measurementOrdered By: Jared Guzman on 12-27-2024 ALP [Catalytic activity/Vol] 152 U/L High 45-117 [facility] Serum or plasma calcium mauricio urement (mass/volume)Ordered By: Jared Guzman on 12-27-2024 Calcium [Mass/Vol] 9.4 mg/dL 8.5-10.1 [facility] Serum or plasma cholesterol measurement (mass/volume)Ordered By: Jared Guzman on 12-27-2024 Cholesterol [Mass/Vol] 178 mg/dL <200 [facility] Comment on above: <200 mg/dL Desirable 200-240 mg/dL Borderline >240 mg/dL High Risk Serum or plasma creatinine m easurement (mass/volume)Ordered By: Jared Guzman on 12-27-2024 Creatinine [Mass/Vol] 0.56 mg/dL 0.55-1.02 [facility] Comment on above: The validity of the calculated GFR & GFRAA in patients over 70 years has not been determined. Clinical correlation is essential. Serum or plasma urea nitroge n measurement (mass/volume)Ordered By: Jared Guzman on 12-27-2024 Urea nitrogen [Mass/Vol] 8 mg/dL 7-18 [facility] Sodium levelOrdered By: Main Guzman on 12-27-2024 Sodium [Moles/Vol] 139 mmol/L 136-145 [facility] Total proteinOrdered By: Mike Guzman on 12-27-2024 Protein [Mass/Vol] 6.2 g/dL Low 6.4-8.2 [facility] Triglycerides measurementOrd ered By: Jared Guzman on 12-27-2024 Triglyceride [Mass/Vol] 181 mg/dL <199 [facility] Comment on above: The drugs N-Acetylcy steine and Metamizole may falsely depress this assay.Serum Triglycerides Reference Interval Normal <150 mg/dL Borderline high 150 - 199 mg/dL High 200 - 499 mg/dL Very High > or = 500 mg/dL Very low density lipoprotein (VLDL) cholesterol measurementOrdered By: Jared Guzman on 12-27-2024 Very low density lipoprotein (VLDL) cholesterol measurement 36 mg/dL -40 [facility] VLDL Cholesterol 36 mg/dL 5-40 [facility] White blood cell (WBC) count Ordered By: Jared Guzman on 12-27-2024 WBC (Bld) [#/Vol] 6.9 10*3/uL 4.4-11.0 [facility] 36on 12-22-2024 36 Please advise. [facility] 36 [facility] 36 [facility] 36 Faxed orders from ed dean to [facility] 36on 12-21-2024 36 Normal [facility] 37on 12-21-2024 37 [facility] Progress Noteon 12-21-2024 Progress Note Normal [facility] Progress Note Patient was verified by name and . [facility] 36on 12-20-2024 36 Patients BGL [facility] 36on 12-13-2024 36 Called SNF s/w Nabil released message as written, she stated that she understood and had no questions. 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 [facility] 3612-05-2024 36 Faxed recommendation s to [facility] at fax #: [phone]. [facility] 36 Normal [facility] 36 Patient's BGL Normal [facility] Albumin to globulin ratioOrd ered By: Jared Guzman on 12-05-2024 Albumin/Globulin [Mass ratio] 0.9 {ratio} 0.9-2.4 [facility] Bilirubin, totalOrdered By: Jared Guzman on 12-05-2024 Bilirubin [Mass/Vol] 0.50 mg/dL 0.20-1.00 [facility] Comment on above: For patients on eltr ombopag therapy, use of Dimension [place] TBIL is not recommended. Blood urea nitrogen (BUN)/cr eatinine ratioOrdered By: Jared Guzman on 12-05-2024 Urea nitrogen/Creatinine [Mass ratio] 20.1 mg/mg High 10-20 [facility] CBC-Complete Blood Cnt No Di ffon 12-05-2024 Erythrocyte distribution width (RBC) [Ratio] 14.7 % High 11.6-14.6 [facility] Comment on above: Order Comment: 103.1 Performed By: #### L 100.0500, L500.4050 #### [facility] [address] [place], [address] Hematocrit (Bld) [Volume fraction] 35.9 % Low 37-47 [facility] Comment on above: Order Comment: 103.1 Performed By: #### L 100.0500, L500.4050 #### [facility] [address] [place], [address] Hemoglobin (Bld) [Mass/Vol] 11.1 g/dL Low 12.0-15.0 [facility] Comment on above: Order Comment: 103.1 Performed By: #### L 100.0500, L500.4050 #### [facility] [address] [place], [address] MCH (RBC) [Entitic mass] 26.5 pg Low 27.0-32.0 [facility] Comment on above: Order Comment: 103.1 Performed By: #### L 100.0500, L500.4050 #### [facility] [address] [place], [address] MCHC (RBC) [Mass/Vol] 30.9 g/dL Low 32-36 [facility] Comment on above: Order Comment: 103.1 Performed By: #### L 100.0500, L500.4050 #### [facility] [address] [place], [address] MCV (RBC) [Entitic vol] 85.7 fL Normal 81-99 [facility] Comment on above: Order Comment: 103.1 Performed By: #### L 100.0500, L500.4050 #### [facility] [address] [place], [address] Platelet mean volume (Bld) [Entitic vol] 10.2 fL Normal 6.2-12.0 [facility] Comment on above: Order Comment: 103.1 Performed By: #### L 100.0500, L500.4050 #### [facility] [address] [place], [address] Platelets (Bld) [#/Vol] 355 10*3/uL Normal 150-450 [facility] Comment on above: Order Comment: 103.1 Performed By: #### L 100.0500, L500.4050 #### [facility] [address] [place], [address] RBC (Bld) [#/Vol] 4.19 10*6/uL Low 4.2-5.[address] [facility] Comment on above: Order Comment: 103.1 Performed By: #### L 100.0500, L500.4050 #### [facility] [address] [place], [address] RDW SD 46.5 fl High 35.1-43.9 [facility] Comment on above: Order Comment: 103.1 Performed By: #### L 100.0500, L500.4050 #### [facility] [address] [place], [address] WBC (Bld) [#/Vol] 8.2 10*3/uL Normal 4.4-11.0 [facility] Comment on above: Order Comment: 103.1 Performed By: #### L 100.0500, L500.4050 #### [facility] [address] [place], [address] Carbon dioxide measurementOr dered By: Jared Guzman on 12-05-2024 CO2 [Moles/Vol] 31.0 mmol/L 21.0-32.0 [facility] Chloride measurementOrdered By: Jared Guzman on 12-05-2024 Chloride [Moles/Vol] 99 mmol/L 98-107 [facility] Comprehensive Metabolic Prof ilon 12-05-2024 Albumin [Mass/Vol] 3.0 g/dL Low 3.2-5.0 [facility] Comment on above: Order Comment: 103.1 Performed By: #### L 100.0500, L500.4050 #### [facility] [address] [place], [address] Albumin/Globulin [Mass ratio] 0.9 {ratio} Normal 0.9-2.4 [facility] Comment on above: Order Comment: 103.1 Performed By: #### L 100.0500, L500.4050 #### [facility] [address] [place], [address] ALK P 137 U/L High 45-117 [facility] Comment on above: Order Comment: 103.1 Performed By: #### L 100.0500, L500.4050 #### [facility] [address] [place], [address] ALT [Catalytic activity/Vol] 23 U/L Normal 13-56 [facility] Comment on above: Order Comment: 103.1 Performed By: #### L 100.0500, L500.4050 #### [facility] [address] [place], [address] AST [Catalytic activity/Vol] 12 U/L Low 15-37 [facility] Comment on above: Order Comment: 103.1 Performed By: #### L 100.0500, L500.4050 #### [facility] [address] [place], [address] Bilirubin [Mass/Vol] 0.50 mg/dL Normal 0.20-1.00 [facility] Comment on above: Order Comment: 103.1 Result Comment: For patients on eltrombopag therapy, use of Dimension [place] TBIL is not recommended. Performed By: #### L 100.0500, L500.4050 #### [facility] [address] [place], [address] BUN/CRE 20.1 RATIO High 10-20 [facility] Comment on above: Order Comment: 103.1 Performed By: #### L 100.0500, L500.4050 #### [facility] [address] [place], [address] CA,Total 9.0 mg/dL Normal 8.5-10.1 [facility] Comment on above: Order Comment: 103.1 Performed By: #### L 100.0500, L500.4050 #### [facility] [address] [place], [address] Chloride [Moles/Vol] 99 mmol/L Normal 98-107 [facility] Comment on above: Order Comment: 103.1 Performed By: #### L 100.0500, L500.4050 #### [facility] [address] [place], [address] CO2 [Moles/Vol] 31.0 mmol/L Normal 21.0-32.0 [facility] Comment on above: Order Comment: 103.1 Performed By: #### L 100.0500, L500.4050 #### [facility] [address] [place], [address] Creatinine [Mass/Vol] 0.70 mg/dL Normal 0.55-1.02 [facility] Comment on above: Order Comment: 103.1 Result Comment: The validity of the calculated GFR GFRAA in patients over 70 years has not been determined. Clinical correlation is essential. Performed By: #### L 100.0500, L500.4050 #### [facility] [address] [place], [address] EST GFR - AA 111 mL/min Normal >60 [facility] Comment on above: Order Comment: 103.1 Result Comment: Afri can [facility] GFR Calc Performed By: #### L 100.0500, L500.4050 #### [facility] [address] [place], [address] GAP 6 Normal 5-15 [facility] Comment on above: Order Comment: 103.1 Performed By: #### L 100.0500, L500.4050 #### [facility] [address] [place], [address] GFR/1.73 sq M.predicted among non-blacks MDRD (S/P/Bld) [Vol rate/Area] 92 mL/min/{1.73_m2} Normal >60 [facility] Comment on above: Order Comment: 103.1 Result Comment: Non- GFR Calc Performed By: #### L 100.0500, L500.4050 #### [facility] [address] [place], [address] Globulin (S) [Mass/Vol] 3.3 g/dL Normal 2.2-4.2 [facility] Comment on above: Order Comment: 103.1 Performed By: #### L 100.0500, L500.4050 #### [facility] [address] [place], [address] Glucose [Mass/Vol] 86 mg/dL Normal 74-106 [facility] Comment on above: Order Comment: 103.1 Performed By: #### L 100.0500, L500.4050 #### [facility] [address] [place], [address] Potassium [Moles/Vol] 3.0 mmol/L Low 3.5-5.1 [facility] Comment on above: Order Comment: 103.1 Performed By: #### L 100.0500, L500.4050 #### [facility] [address] [place], [address] Sodium [Moles/Vol] 136 mmol/L Normal 136-145 [facility] Comment on above: Order Comment: 103.1 Performed By: #### L 100.0500, L500.4050 #### [facility] [address] [place], [address] T PROT 6.3 g/dL Low 6.4-8.2 [facility] Comment on above: Order Comment: 103.1 Performed By: #### L 100.0500, L500.4050 #### [facility] [address] [place], [address] Urea nitrogen [Mass/Vol] 14 mg/dL Normal 7-18 [facility] Comment on above: Order Comment: 103.1 Performed By: #### L 100.0500, L500.4050 #### [facility] [address] [place], [address] Erythrocyte distribution wid th ratioOrdered By: Jared Guzman on 12-05-2024 Erythrocyte distribution width (RBC) [Ratio] 14.7 % High 11.6-14.6 [facility] Erythrocyte distribution wid th standard deviationOrdered By: Jared Guzman on 12-05-2024 Erythrocyte distribution width (RBC) [Entitic vol] 46.5 fL High 35.1-43.9 [facility] Estimated glomerular filtrat ion rate (GFR) AmericanOrdered By: Jared Guzman on 12-05-2024 Estimated GFR (MDRD) Amer 111 mL/min >60 [facility] Comment on above: GFR Calc Glomerular filtration rate ( GFR) estimationOrdered By: Jared Guzman on 12-05-2024 Estimated GFR (MDRD) Non-Af Amer 92 mL/min >60 [facility] Comment on above: Non- GFR Calc Glucose measurementOrdered B y: Jared Guzman on 12-05-2024 Glucose [Mass/Vol] 86 mg/dL 74-106 [facility] Hematocrit Auto (Bld) [Volum e fraction]Ordered By: Jared Guzman on 12-05-2024 Hematocrit (Bld) [Volume fraction] 35.9 % Low 37-47 [facility] Hemoglobin measurementOrdere d By: Jared Guzamn on 12-05-2024 Hemoglobin (Bld) [Mass/Vol] 11.1 g/dL Low 12.0-15.0 [facility] - Chemistry and C hemistry - challengeOrdered By: Jared Guzman on 12-05-2024 AST [Catalytic activity/Vol] 12 U/L Low 15-37 [facility] MCV (mean corpuscular volume ) determinationOrdered By: Jared Guzman on 12-05-2024 MCV (RBC) [Entitic vol] 85.7 fL 81-99 [facility] Mean corpuscular hemoglobin (MCH) determinationOrdered By: Jared Guzman on 12-05-2024 MCH (RBC) [Entitic mass] 26.5 pg Low 27.0-32.0 [facility] Mean corpuscular hemoglobin concentration (MCHC) determinationOrdered By: Jared Guzman on 12-05-2024 MCHC (RBC) [Mass/Vol] 30.9 g/dL Low 32-36 [facility] Mean platelet volume determi nationOrdered By: Jared Guzman on 12-05-2024 Platelet mean volume (Bld) [Entitic vol] 10.2 fL 6.2-12.0 [facility] Platelet countOrdered By: Marcel Piper on 12-05-2024 Platelets (Bld) [#/Vol] 355 10*3/uL 150-450 [facility] Potassium measurementOrdered By: Jared Guzman on 12-05-2024 Potassium [Moles/Vol] 3.0 mmol/L Low 3.5-5.1 [facility] RBC Auto (Bld) [#/Vol]Ordere d By: Jared Guzman on 12-05-2024 RBC (Bld) [#/Vol] 4.19 10*6/uL Low 4.2-5.[address] [facility] Serum anion gap measurementO rdered By: Jared Guzman on 12-05-2024 Anion gap [Moles/Vol] 6 mmol/L 5-15 [facility] Serum globulin measurementOr dered By: Jared Guzman on 12-05-2024 Globulin (S) [Mass/Vol] 3.3 g/dL 2.2-4.2 [facility] Serum or plasma alanine jones otransferase (ALT) measurementOrdered By: Jared Guzman on 12-05-2024 ALT [Catalytic activity/Vol] 23 U/L 13-56 [facility] Serum or plasma albumin mauricio urement (mass/volume)Ordered By: Jared Guzman on 12-05-2024 Albumin [Mass/Vol] 3.0 g/dL Low 3.2-5.0 [facility] Serum or plasma alkaline abbey sphatase measurementOrdered By: Jared Guzman on 12-05-2024 ALP [Catalytic activity/Vol] 137 U/L High 45-117 [facility] Serum or plasma calcium mauricio urement (mass/volume)Ordered By: Jared Guzman on 12-05-2024 Calcium [Mass/Vol] 9.0 mg/dL 8.5-10.1 [facility] Serum or plasma creatinine m easurement (mass/volume)Ordered By: Jared Guzman on 12-05-2024 Creatinine [Mass/Vol] 0.70 mg/dL 0.55-1.02 [facility] Comment on above: The validity of the calculated GFR & GFRAA in patients over 70 years has not been determined. Clinical correlation is essential. Serum or plasma urea nitroge n measurement (mass/volume)Ordered By: Jared Guzman on 12-05-2024 Urea nitrogen [Mass/Vol] 14 mg/dL 7-18 [facility] Sodium levelOrdered By: Main Guzman on 12-05-2024 Sodium [Moles/Vol] 136 mmol/L 136-145 [facility] Total proteinOrdered By: Mike Guzman on 12-05-2024 Protein [Mass/Vol] 6.3 g/dL Low 6.4-8.2 [facility] White blood cell (WBC) count Ordered By: Jared Guzman on 12-05-2024 WBC (Bld) [#/Vol] 8.2 10*3/uL 4.4-11.0 [facility] 36on 12-01-2024 36 Faxed new insulin or cary to [facility] at fax #: [phone]. Normal [facility] BASIC METABOLIC PANELon 11-09 Anion gap [Moles/Vol] 10 mmol/L Normal 3-13 [facility] Comment on above: Performed By: #### L AB15 ####Release Manager: KEMAR ABEBE ([id number])[facility] ([facility])[address] [place] [address] Calcium [Mass/Vol] 9.0 mg/dL Normal 8.4-10.2 [facility] Comment on above: Performed By: #### L AB15 ####Release Manager: KEMAR ABEBE ([phone])[facility] ([facility])[address] Chloride [Moles/Vol] 102 mmol/L Normal 98-[address] [facility] Comment on above: Performed By: #### L AB15 ####Release Manager: KEMAR ABEBE ([id number])[facility] CO2 [Moles/Vol] 25 mmol/L Normal 22-29 [facility] Comment on above: Performed By: #### L AB15 ####Release Manager: KEMAR ABEBE ([id number])[facility] ([facility])[address] Creatinine [Mass/Vol] 0.67 mg/dL Normal [facility] Comment on above: Performed By: #### L AB15 ####Release Manager: KEMAR ABEBE ([id number])[facility] ([facility])[address] GLOMERULAR FILTRATION RATE ML/MIN/1.73 SQ M.PREDICTED >90.0 Normal >60.0 [facility] Comment on above: Result Comment: Calc ulation based on the Chronic Kidney Disease Epidemiology Collaboration (CKD-EPI) equation refit without adjustment for race Performed By: #### L AB15 ####Release Manager: KEMAR ABEBE ([id number])[facility] ([facility])[address] [place] [address] [place] Glucose [Mass/Vol] 215 mg/dL High 74-100 [facility] Comment on above: Performed By: #### L AB15 ####Release Manager: KEMAR ABEBE ([id number])[facility] ([facility])[address] Potassium [Moles/Vol] 3.4 mmol/L Low 3.5-5.1 [facility] Comment on above: Result Comment: [facility] potassium values may be up to 0.5 mmol/L lower than serum values. Performed By: #### L AB15 ####Release Manager: KEMAR ABEBE ([id number])[facility] ([facility])[address] [place] [address] [place] Sodium [Moles/Vol] 137 mmol/L Normal 136-145 [facility] Comment on above: Performed By: #### L AB15 ####Release Manager: KEMAR ABEBE ([id number])[facility] ([facility])[address] [place] [address] [place] Urea nitrogen [Mass/Vol] 10 mg/dL Normal 9-23 [facility] Comment on above: Performed By: #### L AB15 ####Release Manager: KEMAR ABEBE ([id number])[facility] ([facility])[address] [place] [address] [place] Consulton 12-01-2024 Consult Normal [facility] ED Nursing Noteon 12-01-2024 ED Nursing Note Normal [facility] Progress Noteon 12-01-2024 Progress Note Normal [facility] Progress Note Normal [facility] Albumin to globulin ratioOrd ered By: Jared Guzman on 11-30-2024 Albumin/Globulin [Mass ratio] 0.4 {ratio} Low 0.9-2.4 [facility] Bilirubin, totalOrdered By: Jared Guzman on 11-30-2024 Bilirubin [Mass/Vol] 0.40 mg/dL 0.20-1.00 [facility] Comment on above: For patients on eltr ombopag therapy, use of Dimension [place] TBIL is not recommended. Blood urea nitrogen (BUN)/cr eatinine ratioOrdered By: Jared Guzman on 11-30-2024 Urea nitrogen/Creatinine [Mass ratio] 10.5 mg/mg 10-20 [facility] CBC WITH AUTO DIFFERENTIALon 11-30-2024 Basophils (Bld) [#/Vol] 0.0 10*3/uL Normal 0.0-0.2 [facility] Comment on above: Performed By: #### L [id number] ####Release Manager: KEMAR ABEBE ([phone])[facility] ([facility])[address] [place] [address] Basophils/100 WBC (Bld) 0.2 % Normal 0.0-2.0 [facility] Comment on above: Performed By: #### L [id number] ####Release Manager: KEMAR ABEBE ([id number])[facility] [place] [address] Eosinophils (Bld) [#/Vol] 0.1 10*3/uL Normal 0.0-0.5 [facility] Comment on above: Performed By: #### L [id number] ####Release Manager: KEMAR ABEBE ([id number])[facility] [place] [address] Eosinophils/100 WBC (Bld) 1.2 % Normal 0.0-6.0 [facility] Comment on above: Performed By: #### L [id number] ####Release Manager: KEMAR LUDWIGSAAD ([phone])[facility] [place] [address] Erythrocyte distribution width (RBC) [Ratio] 14.7 % Normal 11.5-15.0 [facility] Comment on above: Performed By: #### L [id number] ####Release Manager: KEMAR LUDWIGSAAD ([id number])[facility] ([facility])[address] [place] [address] Hematocrit (Bld) [Volume fraction] 37.5 % Normal Male: 40.0-52.0 ; Female: 35.0-47.0 [facility] Comment on above: Performed By: #### L [id number] ####Release Manager: KEMAR ANDRAE ([id number])[facility] ([facility])[address] [place] [address] Hemoglobin (Bld) [Mass/Vol] 12.0 g/dL Normal 11.7-18.0 [facility] Comment on above: Performed By: #### L [id number] ####Release Manager: KEMAR ABEBE ([id number])[facility] ([facility])[address] [place] [address] IMMATURE GRANS % 0.6 % Normal 0.0-2.0 [facility] Comment on above: Performed By: #### L [id number] ####Release Manager: KEMAR LUDWIGSAAD ([id number])[facility] ([facility])[address] [place] [address] IMMATURE GRANS ABSOLUTE 0.1 10*3/uL High <0.1 [facility] Comment on above: Performed By: #### L [id number] ####Release Manager: KEMAR ABEBE ([id number])[facility] ([facility])[address] [place] [address] Lymphocytes (Bld) [#/Vol] 1.3 10*3/uL Normal 1.0-4.3 [facility] Comment on above: Performed By: #### L [id number] ####Release Manager: KEMAR LUDWIGSAAD ([id number])[facility] ([facility])[address] Lymphocytes/100 WBC (Bld) 15.0 % Normal 15.0-45.0 [facility] Comment on above: Performed By: #### L [id number] ####Release Manager: KEMAR LUDWIGSAAD ([id number])[facility] ([facility])[address] MCH (RBC) [Entitic mass] 26.8 pg Normal 26.0-34.0 [facility] Comment on above: Performed By: #### L [id number] ####Release Manager: KEMAR MOMINHiginioSAAD ([id number])[facility]ENTER[facility] KASPEREmmie ([facility])[address] MCHC 32.0 % Normal 30.5-36.0 [facility] Comment on above: Performed By: #### L [id number] ####Release Manager: KEMAR LUDWIGSAAD ([id number])[facility]ENTER[facility]ren WADEFORT [facility]FI[facility]OSPITALEmmie ([facility])[address] MCV (RBC) [Entitic vol] 83.9 fL Normal 77.0-99.0 [facility] Comment on above: Performed By: #### L [id number] ####Release Manager: KEMAR ABEBE ([phone])[facility]BF[facility] ([facility])[address] Monocytes (Bld) [#/Vol] 0.3 10*3/uL Normal 0.0-0.9 [facility] Comment on above: Performed By: #### L [id number] ####Release Manager: KEMAR ABEBE ([id number])[facility] ([facility])[address] Monocytes/100 WBC (Bld) 3.7 % Low 5.0-13.0 [facility] Comment on above: Performed By: #### L [id number] ####Release Manager: KEMAR MOMINHiginioSAAD ([phone])[facility] [place] ([facility])[address] NEUTROPHILS ABSOLUTE 7.0 10*3/uL Normal 1.8-7.5 [facility] Comment on above: Performed By: #### L [id number] ####Release Manager: KEMAR MOMINHARRISON ([id number])[facility] [place] ([facility])[address] Neutrophils/100 WBC (Bld) 79.3 % Normal 38.0-82.0 [facility] Comment on above: Performed By: #### L [id number] ####Release Manager: KEMAR MOMINHARRISON ([id number])[facility] ([facility])[address] [place] [address] NRBC 0.0 /100 WBCs Normal 0.0-2.0 [facility] Comment on above: Performed By: #### L [id number] ####Release Manager: KEMAR LUDWIGSAAD ([id number])[facility] ([facility])[address] Platelet mean volume (Bld) [Entitic vol] 9.5 fL Normal 9.0-12.7 [facility] Comment on above: Performed By: #### L [id number] ####Release Manager: KEMAR ABEBE ([id number])[facility] [place] ([facility])[address] Platelets (Bld) [#/Vol] 384 10*3/uL Normal 140-440 [facility] Comment on above: Performed By: #### L [id number] ####Release Manager: KEMAR LUDWIGSAAD ([id number])[facility] [place] ([facility])[address] RBC (Bld) [#/Vol] 4.47 10*6/uL Normal Male: 4.40-5.90; Female: 3.80-5.20 [facility] Comment on above: Performed By: #### L [id number] ####Release Manager: KEMARDU MOMINHiginioSAAD ([id number])[facility]ENTER[facility] ([facility])[address] [place] [address] WBC (Bld) [#/Vol] 8.8 10*3/uL Normal 3.6-10.7 [facility] Comment on above: Performed By: #### L [id number] ####Release Manager: KEMAR ABEBE ([id number])[facility]ENTER[facility] ([facility])[address] [place] [address] CBC-Complete Blood Cnt No Di ffon 11-30-2024 Erythrocyte distribution width (RBC) [Ratio] 15.1 % High 11.6-14.6 [facility] Comment on above: Order Comment: 103-1 Performed By: #### L 100.0500, L500.4050 #### [facility] [address] [place], [address] Hematocrit (Bld) [Volume fraction] 34.7 % Low 37-47 [facility] Comment on above: Order Comment: 103-1 Performed By: #### L 100.0500, L500.4050 #### [facility] [address] [place], [address] Hemoglobin (Bld) [Mass/Vol] 10.8 g/dL Low 12.0-15.0 [facility] Comment on above: Order Comment: 103-1 Performed By: #### L 100.0500, L500.4050 #### [facility] [address] [place], [address] MCH (RBC) [Entitic mass] 26.6 pg Low 27.0-32.0 [facility] Comment on above: Order Comment: 103-1 Performed By: #### L 100.0500, L500.4050 #### [facility] [address] [place], [address] MCHC (RBC) [Mass/Vol] 31.1 g/dL Low 32-36 [facility] Comment on above: Order Comment: 103-1 Performed By: #### L 100.0500, L500.4050 #### [facility] [address] [place], [address] MCV (RBC) [Entitic vol] 85.5 fL Normal 81-99 [facility] Comment on above: Order Comment: 103-1 Performed By: #### L 100.0500, L500.4050 #### [facility] [address] [place], [address] Platelet mean volume (Bld) [Entitic vol] 10.0 fL Normal 6.2-12.0 [facility] Comment on above: Order Comment: 103-1 Performed By: #### L 100.0500, L500.4050 #### [facility] [address] [place], [address] Platelets (Bld) [#/Vol] 375 10*3/uL Normal 150-450 [facility] Comment on above: Order Comment: 103-1 Performed By: #### L 100.0500, L500.4050 #### [facility] [address] [place], [address] RBC (Bld) [#/Vol] 4.06 10*6/uL Low 4.2-5.[address] [facility] Comment on above: Order Comment: 103-1 Performed By: #### L 100.0500, L500.4050 #### [facility] [address] [place], [address] RDW SD 46.6 fl High 35.1-43.9 [facility] Comment on above: Order Comment: 103-1 Performed By: #### L 100.0500, L500.4050 #### [facility] [address] [place], [address] WBC (Bld) [#/Vol] 8.4 10*3/uL Normal 4.4-11.0 [facility] Comment on above: Order Comment: 103-1 Performed By: #### L 100.0500, L500.4050 #### [facility] [address] [place], [address] COMPLETE URINALYSISon 2024 BACTERIA (#/HPF) IN URINE Negative Normal Negative [facility] Comment on above: Performed By: #### L [id number] ####Release Manager: KEMAR ABEBE ([phone])[facility]BF[facility]PITALEmmie ([facility])[address] BILIRUBIN, TOTAL PRESENCE IN URINE Negative Normal Negative [facility] Comment on above: Performed By: #### L [id number] ####Release Manager: KEMAR ABEBE ([id number])[facility] [place] ([facility])[address] Clarity (U) Clear Normal Clear [facility] Comment on above: Performed By: #### L [id number] ####Release Manager: KEMAR ABEBE ([id number])[facility] [place] ([facility])[address] Color (U) Light Yellow Normal Lt. Yellow [facility] Comment on above: Performed By: #### L [id number] ####Release Manager: KEMAR ABEBE ([id number])[facility] [place] ([facility])[address] Glucose (U) [Mass/Vol] 50 mg/dL Normal Janey l (<70) [facility] Comment on above: Performed By: #### L [id number] ####Release Manager: KEMAR ABEBE ([id number])[facility] ([facility])[address] HEMOGLOBIN PRESENCE IN URINE 1.0 mg/dL Abnormal Negative [facility] Comment on above: Performed By: #### L [id number] ####Release Manager: KEMAR ABEBE ([id number])[facility] [place] ([facility])[address] HYALINE CASTS (#/LPF) IN URINE SEDIMENT BY MICROSCOPY 0-2 Abnormal Negative [facility] Comment on above: Performed By: #### L [id number] ####Release Manager: KEMAR LUDWIGSAAD ([id number])[facility] ([facility])[address] Ketones Ql (U) Trace Abnormal Negative [facility] Comment on above: Performed By: #### L [id number] ####Release Manager: KEMAR ABEBE ([id number])[facility])[address] LEUKOCYTE ESTERASE PRESENCE IN URINE BY TEST STRIP Negative Normal Negative [facility] Comment on above: Performed By: #### L [id number] ####Release Manager: KEMAR ABEBE ([id number])[facility])[address] [place] [address] [place] MUCUS (#/LPF) IN URINE SEDIMENT Few Normal Negative [facility] Comment on above: Performed By: #### L [id number] ####Release Manager: KEMAR LUDWIGSAAD ([phone])[facility])[address] NITRITE PRESENCE IN URINE Negative Normal Negative [facility] Comment on above: Performed By: #### L [id number] ####Release Manager: KEMAR ABEBE ([id number])[facility] [place] ([facility])[address] pH (U) 6.0 [pH] Normal 5.0-8.0 [facility] Comment on above: Performed By: #### L [id number] ####Release Manager: KEMAR ABEBE ([id number])[facility] ([facility])[address] Protein (U) [Mass/Vol] 100 mg/dL Abnormal Negative [facility] Comment on above: Performed By: #### L AB347 ####Release Manager: KEMAR ABEBE ([id number])[facility] ([facility])[address] [place] [address] RBC (#/HPF) IN URINE SEDIMENT >100 Abnormal 0-2 [facility] Comment on above: Performed By: #### L AB347 ####Release Manager: KEMAR ABEBE ([id number])[facility] ([facility])[address] [place] [address] Specific gravity (U) [Rel density] 1.012 Normal 1.005-1.030 [facility] Comment on above: Performed By: #### L AB347 ####Release Manager: KEMAR ABEBE ([id number])[facility] ([facility])[address] [place] [address] SQUAMOUS EPITHELIAL CELLS (#/HPF) IN URINE SEDIMENT 3-5 Normal 3-5 [facility] Comment on above: Performed By: #### L AB347 ####Release Manager: KEMAR ABEBE ([id number])[facility] [place] [address] UROBILINOGEN (MG/DL) IN URINE Normal Normal Normal (0-1) [facility] Comment on above: Performed By: #### L AB347 ####Release Manager: KEMAR ABEBE ([id number])[facility] (SBHL[facility])[address] [place] [address] WBC (LEUKOCYTE) (#/HPF) IN URINE SEDIMENT 0-2 Normal 0-5 [facility] Comment on above: Performed By: #### L AB347 ####Release Manager: KEMAR ABEBE ([id number])[facility] (SBAB)[address] [place] [address] COMPREHENSIVE METABOLIC PANE Gigi 11-30-2024 Albumin [Mass/Vol] 3.4 g/dL Low 3.5-5.0 [facility] Comment on above: Performed By: #### Elijah [id number], LAB17, [id number], LAB99 ####Release Manager: KEMAR ABEBE ([id number])[facility] [place] ([facility])[address] ALP [Catalytic activity/Vol] 145 U/L Normal [facility] Comment on above: Performed By: #### Elijah [id number], LAB17, ASN245, LAB99 ####Release Manager: KEMAR ABEBE ([id number])[facility] [place] ([facility])[address] ALT [Catalytic activity/Vol] 21 U/L Normal [facility] Comment on above: Performed By: #### Elijah [id number], LAB17, [id number], LAB99 ####Release Manager: KEMAR ABEBE ([id number])[facility] [place] ([facility])[address] Anion gap [Moles/Vol] 11 mmol/L Normal 3-13 [facility] Comment on above: Performed By: #### Elijah [id number], LAB17, BUZ107, LAB99 ####Release Manager: KEMAR ABEBE ([id number])[facility] [place] ([facility])[address] AST [Catalytic activity/Vol] 21 U/L Normal <34 [facility] Comment on above: Performed By: #### Elijah [id number], LAB17, NON154, LAB99 ####Release Manager: KEMAR ABEBE ([id number])[facility] [place] ([facility])[address] [place] [address] [place] Bilirubin [Mass/Vol] 0.5 mg/dL Normal <1.2 [facility] Comment on above: Performed By: #### L [id number], LAB17, [id number], LAB99 ####Release Manager: KEMAR ABEBE ([id number])[facility] [place] ([facility])[address] [place] [address] [place] Calcium [Mass/Vol] 8.9 mg/dL Normal 8.4-10.2 [facility] Comment on above: Performed By: #### L [id number], LAB17, [id number], LAB99 ####Release Manager: KEMAR ABEBE ([id number])[facility] ([facility])[address] Chloride [Moles/Vol] 99 mmol/L Normal 98-[address] [facility] Comment on above: Performed By: #### L [id number], LAB17, USW186, LAB99 ####Release Manager: KEMAR ABEBE ([id number])[facility] (SBHL[facility])[address] CO2 [Moles/Vol] 28 mmol/L Normal 22-29 [facility] Comment on above: Performed By: #### Elijah [id number], LAB17, ZPV903, LAB99 ####Release Manager: KEMAR ABEBE ([id number])[facility] ([facility])[address] Creatinine [Mass/Vol] 0.73 mg/dL Normal [facility] Comment on above: Performed By: #### L [id number], LAB17, [id number], LAB99 ####Release Manager: KEMAR ABEBE ([id number])[facility] ([facility])[address] GLOMERULAR FILTRATION RATE ML/MIN/1.73 SQ M.PREDICTED >90.0 Normal >60.0 [facility] Comment on above: Result Comment: Calc ulation based on the Chronic Kidney Disease Epidemiology Collaboration (CKD-EPI) equation refit without adjustment for race Performed By: #### L [id number], LAB17, [id number], LAB99 ####Release Manager: KEMAR ABEBE ([id number])[facility] ([facility])[address] Glucose [Mass/Vol] 249 mg/dL High 74-100 [facility] Comment on above: Performed By: #### L [id number], LAB17, [id number], LAB99 ####Release Manager: KEMAR ABEBE ([id number])[facility] ([facility])[address] Potassium [Moles/Vol] 3.4 mmol/L Low 3.5-5.1 [facility] Comment on above: Result Comment: [facility] potassium values may be up to 0.5 mmol/L lower than serum values. Performed By: #### L [id number], LAB17, ABA320, LAB99 ####Release Manager: KEMAR ABEBE ([id number])[facility] ([facility])[address] Protein [Mass/Vol] 6.7 g/dL Normal 6.4-8.3 [facility] Comment on above: Performed By: #### L [id number], LAB17, [id number], LAB99 ####Release Manager: KEMAR ABEBE ([id number])[facility] ([facility])[address] [place] [address] Sodium [Moles/Vol] 138 mmol/L Normal 136-145 [facility] Comment on above: Performed By: #### L [id number], LAB17, [id number], LAB99 ####Release Manager: KEMAR ABEBE ([id number])[facility] ([facility])[address] [place] [address] Urea nitrogen [Mass/Vol] 10 mg/dL Normal 9-23 [facility] Comment on above: Performed By: #### L [id number], LAB17, QLT159, LAB99 ####Release Manager: KEMAR ABEBE ([id number])[facility] (SBAB)[address] Carbon dioxide measurementOr dered By: Jared Guzman on 11-30-2024 CO2 [Moles/Vol] 18.0 mmol/L Low 21.0-32.0 [facility] Chloride measurementOrdered By: Jared Guzman on 11-30-2024 Chloride [Moles/Vol] 104 mmol/L 98-107 [facility] Comprehensive Metabolic Prof ilon 11-30-2024 Albumin [Mass/Vol] 2.0 g/dL Low 3.2-5.0 [facility] Comment on above: Order Comment: UNKNO WN METHOD OF COLLECTION CLEAN CATCH Performed By: #### M 100.2200, L400.0001 #### [facility] [address] [place], [address] Albumin/Globulin [Mass ratio] 0.4 {ratio} Low 0.9-2.4 [facility] Comment on above: Order Comment: UNKNO WN METHOD OF COLLECTION CLEAN CATCH Performed By: #### M 100.2200, L400.0001 #### [facility] [address] [place], [address] ALK P 137 U/L High 45-117 [facility] Comment on above: Order Comment: UNKNO WN METHOD OF COLLECTION CLEAN CATCH Performed By: #### M 100.2200, L400.0001 #### [facility] [address] [place], [address] ALT [Catalytic activity/Vol] 26 U/L Normal 13-56 [facility] Comment on above: Order Comment: UNKNO WN METHOD OF COLLECTION CLEAN CATCH Performed By: #### M 100.2200, L400.0001 #### [facility] [address] [place], [address] AST [Catalytic activity/Vol] 15 U/L Normal 15-37 [facility] Comment on above: Order Comment: UNKNO WN METHOD OF COLLECTION CLEAN CATCH Performed By: #### M 100.2200, L400.0001 #### [facility] [address] [place], [address] Bilirubin [Mass/Vol] 0.40 mg/dL Normal 0.20-1.00 [facility] Comment on above: Order Comment: UNKNO WN METHOD OF COLLECTION CLEAN CATCH Result Comment: For patients on eltrombopag therapy, use of Dimension [place] TBIL is not recommended. Performed By: #### M 100.2200, L400.0001 #### [facility] [address] [place], [address] BUN/CRE 10.5 RATIO Normal 10-20 [facility] Comment on above: Order Comment: UNKNO WN METHOD OF COLLECTION CLEAN CATCH Performed By: #### M 100.2200, L400.0001 #### [facility] [address] [place], [address] CA,Total 5.9 mg/dL Invalid Interpretation Code 8.5-10.1 [facility] Comment on above: Order Comment: UNKNO WN METHOD OF COLLECTION CLEAN CATCH Performed By: #### M 100.2200, L400.0001 #### [facility] [address] [place], [address] Chloride [Moles/Vol] 104 mmol/L Normal 98-107 [facility] Comment on above: Order Comment: UNKNO WN METHOD OF COLLECTION CLEAN CATCH Performed By: #### M 100.2200, L400.0001 #### [facility] [address] [place], [address] CO2 [Moles/Vol] 18.0 mmol/L Low 21.0-32.0 [facility] Comment on above: Order Comment: UNKNO WN METHOD OF COLLECTION CLEAN CATCH Performed By: #### M 100.2200, L400.0001 #### [facility] [address] [place], [address] Creatinine [Mass/Vol] 0.57 mg/dL Normal 0.55-1.02 [facility] Comment on above: Order Comment: UNKNO WN METHOD OF COLLECTION CLEAN CATCH Result Comment: The validity of the calculated GFR GFRAA in patients over 70 years has not been determined. Clinical correlation is essential. Performed By: #### M 100.2200, L400.0001 #### [facility] [address] [place], [address] EST GFR - AA 140 mL/min Normal >60 [facility] Comment on above: Order Comment: UNKNO WN METHOD OF COLLECTION CLEAN CATCH Result Comment: Afri can [facility] GFR Calc Performed By: #### M 100.2200, L400.0001 #### [facility] [address] [place], [address] GAP 16 High 5-15 [facility] Comment on above: Order Comment: UNKNO WN METHOD OF COLLECTION CLEAN CATCH Performed By: #### M 100.2200, L400.0001 #### [facility] [address] [place], [address] GFR/1.73 sq M.predicted among non-blacks MDRD (S/P/Bld) [Vol rate/Area] 116 mL/min/{1.73_m2} Normal >60 [facility] Comment on above: Order Comment: UNKNO WN METHOD OF COLLECTION CLEAN CATCH Result Comment: Non- GFR Calc Performed By: #### M 100.2200, L400.0001 #### [facility] [address] [place], [address] Globulin (S) [Mass/Vol] 4.6 g/dL High 2.2-4.2 [facility] Comment on above: Order Comment: UNKNO WN METHOD OF COLLECTION CLEAN CATCH Performed By: #### M 100.2200, L400.0001 #### [facility] [address] [place], [address] Glucose [Mass/Vol] 72 mg/dL Low 74-106 [facility] Comment on above: Order Comment: UNKNO WN METHOD OF COLLECTION CLEAN CATCH Performed By: #### M 100.2200, L400.0001 #### [facility] [address] [place], [address] Potassium [Moles/Vol] 3.3 mmol/L Low 3.5-5.1 [facility] Comment on above: Order Comment: UNKNO WN METHOD OF COLLECTION CLEAN CATCH Performed By: #### M 100.2200, L400.0001 #### [facility] [address] [place], [address] Sodium [Moles/Vol] 138 mmol/L Normal 136-145 [facility] Comment on above: Order Comment: UNKNO WN METHOD OF COLLECTION CLEAN CATCH Performed By: #### M 100.2200, L400.0001 #### [facility] [address] [place], [address] T PROT 6.6 g/dL Normal 6.4-8.2 [facility] Comment on above: Order Comment: UNKNO WN METHOD OF COLLECTION CLEAN CATCH Performed By: #### M 100.2200, L400.0001 #### [facility] [address] [place], [address] Urea nitrogen [Mass/Vol] 6 mg/dL Low 7-18 [facility] Comment on above: Order Comment: UNKNO WN METHOD OF COLLECTION CLEAN CATCH Performed By: #### M 100.2200, L400.0001 #### [facility] [address] [place], [address] ED Nursing Noteon 11-30-2024 ED Nursing Note Patient has had some chest discomfort since this morning. Recently had a PICC line placed in upper right arm for fluids. Normal [facility] ED Provider Noteon ED Provider Note Normal [facility] Erythrocyte distribution wid th ratioOrdered By: Jared Guzman on 11-30-2024 Erythrocyte distribution width (RBC) [Ratio] 15.1 % High 11.6-14.6 [facility] Erythrocyte distribution wid th standard deviationOrdered By: Jared Guzman on 11-30-2024 Erythrocyte distribution width (RBC) [Entitic vol] 46.6 fL High 35.1-43.9 [facility] Estimated glomerular filtrat ion rate (GFR) AmericanOrdered By: Jared Guzman on 11-30-2024 Estimated GFR (MDRD) Amer 140 mL/min >60 [facility] Comment on above: GFR Calc Glomerular filtration rate ( GFR) estimationOrdered By: Jared Guzman on 11-30-2024 Estimated GFR (MDRD) Non-Af Amer 116 mL/min >60 [facility] Comment on above: Non- GFR Calc Glucose measurementOrdered B y: Jared Guzman on 11-30-2024 Glucose [Mass/Vol] 72 mg/dL Low 74-106 [facility] HIGH SENSITIVITY TROPONIN, S ERIAL BASELINEon 11-30-2024 TROPONIN HIGH SENSITIVITY BASELINE <3 Normal [facility] Comment on above: Performed By: #### L [id number] ####Release Manager: KEMAR ABEBE ([phone])[facility] TROPONIN HIGH SENSITIVITY BASELINE <3 Normal [facility] Comment on above: Performed By: #### L [id number], LAB17, [id number], LAB99 ####Release Manager: KEMAR ABEBE ([id number])[facility])[address] HIGH SENSITIVITY TROPONIN, S ERIAL, SECOND TESTon 11-30-2024 TROPONIN HS, SERIAL REFLEX, TEST TWO <3 Normal [facility] Comment on above: Performed By: #### L [id number] ####Release Manager: KEMAR ABEBE ([id number])[facility])[address] [place] [address] Hematocrit Auto (Bld) [Volum e fraction]Ordered By: Jared Guzman on 11-30-2024 Hematocrit (Bld) [Volume fraction] 34.7 % Low 37-47 [facility] Hemoglobin measurementOrdere d By: Jared Guzman on 11-30-2024 Hemoglobin (Bld) [Mass/Vol] 10.8 g/dL Low 12.0-15.0 [facility] LIPASEon 11-30-2024 Lipase [Catalytic activity/Vol] 7 U/L Normal <55 [facility] Comment on above: Performed By: #### L [id number], LAB17, [id number], LAB99 ####Release Manager: KEMAR ABEBE ([id number])[facility] [place] ([facility])[address] Laboratory - Chemistry and C hemistry - challengeOrdered By: Jared Guzman on 11-30-2024 AST [Catalytic activity/Vol] 15 U/L 15-37 [facility] MAGNESIUMon 11-30-2024 Magnesium [Mass/Vol] 1.5 mg/dL Low 1.6-2.[address] [facility] Comment on above: Result Comment: MARIE R COMMENTS:Higher values can be expected in females during menses. Performed By: #### L [id number], LAB17, [id number], LAB99 ####Release Manager: KEMAR ABEBE ([id number])[facility]ENTER[facility] WADEFORT [facility]FI[facility] INDI[facility] HOSPITALEmmie ([facility])[address] MCV (mean corpuscular volume ) determinationOrdered By: Jared Guzman on 11-30-2024 MCV (RBC) [Entitic vol] 85.5 fL 81-99 [facility] Mean corpuscular hemoglobin (MCH) determinationOrdered By: Jared Guzman on 11-30-2024 MCH (RBC) [Entitic mass] 26.6 pg Low 27.0-32.0 [facility] Mean corpuscular hemoglobin concentration (MCHC) determinationOrdered By: Jared Guzman on 11-30-2024 MCHC (RBC) [Mass/Vol] 31.1 g/dL Low 32-36 [facility] Mean platelet volume determi nationOrdered By: Jared Guzman on 11-30-2024 Platelet mean volume (Bld) [Entitic vol] 10.0 fL 6.2-12.0 [facility] Platelet countOrdered By: Marcel Piper on 11-30-2024 Platelets (Bld) [#/Vol] 375 10*3/uL 150-450 [facility] Potassium measurementOrdered By: Jared Guzman on 11-30-2024 Potassium [Moles/Vol] 3.3 mmol/L Low 3.5-5.1 [facility] RBC Auto (Bld) [#/Vol]Ordere d By: Jared Guzman on 11-30-2024 RBC (Bld) [#/Vol] 4.06 10*6/uL Low 4.2-5.[address] [facility] Serum anion gap measurementO rdered By: Jared Guzman on 11-30-2024 Anion gap [Moles/Vol] 16 mmol/L High 5-15 [facility] Serum globulin measurementOr dered By: Jared Guzman on 11-30-2024 Globulin (S) [Mass/Vol] 4.6 g/dL High 2.2-4.2 [facility] Serum or plasma alanine jones otransferase (ALT) measurementOrdered By: Jared Guzman on 11-30-2024 ALT [Catalytic activity/Vol] 26 U/L 13-56 [facility] Serum or plasma albumin mauricio urement (mass/volume)Ordered By: Jared Guzman on 11-30-2024 Albumin [Mass/Vol] 2.0 g/dL Low 3.2-5.0 [facility] Serum or plasma alkaline abbey sphatase measurementOrdered By: Jared Guzman on 11-30-2024 ALP [Catalytic activity/Vol] 137 U/L High 45-117 [facility] Serum or plasma calcium mauricio urement (mass/volume)Ordered By: Jraed Guzman on 11-30-2024 Calcium [Mass/Vol] 5.9 mg/dL Low 8.5-10.1 [facility] Serum or plasma creatinine m easurement (mass/volume)Ordered By: Jared Guzman on 11-30-2024 Creatinine [Mass/Vol] 0.57 mg/dL 0.55-1.02 [facility] Comment on above: The validity of the calculated GFR & GFRAA in patients over 70 years has not been determined. Clinical correlation is essential. Serum or plasma urea nitroge n measurement (mass/volume)Ordered By: Jared Guzman on 11-30-2024 Urea nitrogen [Mass/Vol] 6 mg/dL Low 7-18 [facility] Sodium levelOrdered By: Mian Guzman on 11-30-2024 Sodium [Moles/Vol] 138 mmol/L 136-145 [facility] Total proteinOrdered By: Mike Guzman on 11-30-2024 Protein [Mass/Vol] 6.6 g/dL 6.4-8.2 [facility] US ABDOMEN LIMITEDon 025 US ABDOMEN LIMITED Normal [facility] White blood cell (WBC) count Ordered By: Jared Guzman on 11-30-2024 WBC (Bld) [#/Vol] 8.4 10*3/uL 4.4-11.0 [facility] 36on 11-28-2024 36 I have reviewed the pt's glucose log. Based on interpretation of the FSBS data I recommend the following changes to the pt's antihyperglycemic regimen: Please increase Humulin u500 to 140 units three times daily before meals. Med rec updated: Yes [facility] 36 Patients BGL [facility] 36on 11-22-2024 36 [facility] 36 Unable to reach Nayan h at [facility] to reschedule appt with Makayla Guerrero on 11/27/2024. Called SNF again at [phone] and spoke to Quiana again. Rescheduled pt to 01/01/25 and per Nayan Arayah will call if there is a problem with this date/time. Normal [facility] 36on 11-21-2024 36 Normal [facility] 36 Patient's BGL Normal [place] [address]on 11-20-2024 36 Addendum completed. Sending message to provider as FYI, please indicate if/when patient needs fu with provider to review. Will forward to staff to schedule if indicated. Thank you. Normal [facility] 36on 11-19-2024 36 Normal [facility] CT CHEST ANGIOGRAM W AND/OR WO IV CONTRASTon 11-18-2024 CT CHEST ANGIOGRAM W AND/OR WO IV CONTRAST Normal [facility] 36on 11-15-2024 36 Patient's BGL Normal [facility] 36on 11-14-2024 36 Noted. Request email ed to radiology team. [facility] Progress Noteon 11-14-2024 Progress Note Normal [facility] 36on 11-13-2024 36 Normal [facility] BASIC METABOLIC PANELon Anion gap [Moles/Vol] 10 mmol/L Normal 3-13 [facility] Comment on above: Performed By: #### L AB15, LAB99, LAB20 ####Release Manager: KEMAR ABEBE ([id number])[facility] [place] ([facility])[address] Calcium [Mass/Vol] 8.7 mg/dL Normal 8.4-10.2 [facility] Comment on above: Performed By: #### L AB15, LAB99, LAB20 ####Release Manager: KEMAR ABEBE ([id number])[facility] [place] ([facility])[address] Chloride [Moles/Vol] 105 mmol/L Normal 98-[address] [facility] Comment on above: Performed By: #### L AB15, LAB99, LAB20 ####Release Manager: KEMAR ABEBE ([id number])[facility]ENTERA [facility]ITALKAT[facility] ([facility])[address] CO2 [Moles/Vol] 26 mmol/L Normal 22-29 [facility] Comment on above: Performed By: #### L AB15, LAB99, LAB20 ####Release Manager: KEMAR ABEBE ([id number])[facility]ITALMARYN ([facility])[address] Creatinine [Mass/Vol] 1.01 mg/dL Normal [facility] Comment on above: Performed By: #### L AB15, LAB99, LAB20 ####Release Manager: KEMAR ABEBE ([id number])[facility] [place] ([facility])[address] GLOMERULAR FILTRATION RATE ML/MIN/1.73 SQ M.PREDICTED 64.7 mL/min/1.73m*2 Normal >60.0 [facility] Comment on above: Result Comment: Calc ulation based on the Chronic Kidney Disease Epidemiology Collaboration (CKD-EPI) equation refit without adjustment for race Performed By: #### L AB15, LAB99, LAB20 ####Release Manager: KEMAR ABEBE ([id number])[facility]ENTER[facility] [place] ([facility])[address] Glucose [Mass/Vol] 87 mg/dL Normal 74-100 [facility] Comment on above: Performed By: #### L AB15, LAB99, LAB20 ####Release Manager: KEMAR ABEBE ([id number])[facility]ENTER[facility] ([facility])[address] Potassium [Moles/Vol] 3.9 mmol/L Normal 3.5-5.1 [facility] Comment on above: Result Comment: [facility] potassium values may be up to 0.5 mmol/L lower than serum values. Performed By: #### L AB15, LAB99, LAB20 ####Release Manager: KEMAR ABEBE ([id number])[facility]ENTER[facility] ([facility])[address] Sodium [Moles/Vol] 141 mmol/L Normal 136-145 [facility] Comment on above: Performed By: #### L AB15, LAB99, LAB20 ####Release Manager: KEMAR ABEBE ([id number])[facility] ([facility])[address] Urea nitrogen [Mass/Vol] 18 mg/dL Normal 9-23 [facility] Comment on above: Performed By: #### L AB15, LAB99, LAB20 ####Release Manager: KEMAR ABEBE ([id number])[facility] ([facility])[address] Basic metabolic 1998 panelon 11-12-2024 Anion gap [Moles/Vol] 10 mmol/L 3 - 13 mmol/L [facility] Calcium [Mass/Vol] 8.7 mg/dL 8.4 - 10. 2 mg/dL [facility] Chloride [Moles/Vol] 105 mmol/L 98 - 10 7 mmol/L [facility] CO2 [Moles/Vol] 26 mmol/L 22 - 29 mmol/L [facility] Creatinine [Mass/Vol] 1.01 mg/dL [facility] GFR/1.73 sq M.predicted (S/P/Bld) [Vol rate/Area] 64.7 mL/min - PINF [facility] Comment on above: Calculation based on the Chronic Kidney Disease Epidemiology Collaboration (CKD-EPI) equation refit without adjustment for race Glucose [Mass/Vol] 87 mg/dL 74 - 100 mg/dL [facility] Potassium [Moles/Vol] 3.9 mmol/L 3.5 - 5.1 mmol/L [facility] [facility] Comment on above: Plasma potassium helen ues may be up to 0.5 mmol/L lower than serum values. Sodium [Moles/Vol] 141 mmol/L 136 - 145 mmol/L [facility] Urea nitrogen [Mass/Vol] 18 mg/dL 9 - 23 mg/dL [facility] CBC (HEMOGRAM)on 11-12-2024 Erythrocyte distribution width (RBC) [Ratio] 14.8 % Normal 11.5-15.0 [facility] Comment on above: Performed By: #### L AB294 ####Release Manager: KEMAR ABEBE ([id number])[facility] ([facility])[address] [place] [address] Hematocrit (Bld) [Volume fraction] 37.7 % Normal Male: 40.0-52.0 ; Female: 35.0-47.0 [facility] Comment on above: Performed By: #### L AB294 ####Release Manager: KEMAR ABEBE ([id number])[facility] ([facility])[address] [place] [address] Hemoglobin (Bld) [Mass/Vol] 12.0 g/dL Normal 11.7-18.0 [facility] Comment on above: Performed By: #### L AB294 ####Release Manager: KEMAR ABEBE ([id number])[facility] ([facility])[address] [place] [address] MCH (RBC) [Entitic mass] 27.2 pg Normal 26.0-34.0 [facility] Comment on above: Performed By: #### L AB294 ####Release Manager: KEMAR ABEBE ([id number])[facility] ([facility])[address] MCHC 31.8 % Normal 30.5-36.0 [facility] Comment on above: Performed By: #### L AB294 ####Release Manager: KEMAR ABEBE ([id number])[facility] ([facility])[address] MCV (RBC) [Entitic vol] 85.5 fL Normal 77.0-99.0 [facility] Comment on above: Performed By: #### L AB294 ####Release Manager: KEMAR ABEBE ([id number])[facility] ([facility])[address] Platelet mean volume (Bld) [Entitic vol] 9.2 fL Normal 9.0-12.7 [facility] Comment on above: Performed By: #### L AB294 ####Release Manager: KEMAR ABEBE ([id number])[facility] ([facility])[address] Platelets (Bld) [#/Vol] 391 10*3/uL Normal 140-440 [facility] Comment on above: Performed By: #### L AB294 ####Release Manager: KEMAR ABEBE ([id number])[facility] ([facility])[address] RBC (Bld) [#/Vol] 4.41 10*6/uL Normal Male: 4.40-5.90; Female: 3.80-5.20 [facility] Comment on above: Performed By: #### L AB294 ####Release Manager: KEMAR ABEBE ([id number])[facility] ([facility])[address] WBC (Bld) [#/Vol] 8.6 10*3/uL Normal 3.6-10.7 [facility] Comment on above: Performed By: #### L AB294 ####Release Manager: KEMAR ABEBE ([id number])[facility] ([facility])[address] CBC panel Auto (Bld)on 11-12 Erythrocyte distribution width (RBC) [Ratio] 14.8 % 11.5 - 15.0 % [facility] Hematocrit (Bld) [Volume fraction] 37.7 % Male: 40.0-52.0 ; Female: 35.0-47.[address] [facility] Hemoglobin (Bld) [Mass/Vol] 12 g/dL 11.7 - 18.0 g/dL [facility] MCH (RBC) [Entitic mass] 27.2 pg 26.0 - 34.[address] [facility] MCHC (RBC) [Mass/Vol] 31.8 % 30.5 - 36.0 % [facility] MCV (RBC) [Entitic vol] 85.5 fL 77.0 - 99.[address] [facility] Platelet mean volume (Bld) [Entitic vol] 9.2 fL 9.0 - 12.[address] [facility] Platelets (Bld) [#/Vol] 391 10*3/uL 140 - 440 10*3/uL [facility] RBC (Bld) [#/Vol] 4.41 10*6/uL Male: 4.40-5.90; Female: 3.80-5.[address] [facility] WBC (Bld) [#/Vol] 8.6 10*3/uL 3.6 - 10.7 10*3/uL [facility] CT ABDOMEN PELVIS WO IV CONT RASTon 11-12-2024 CT ABDOMEN PELVIS WO IV CONTRAST Normal [facility] CT Abdomen and Pelvis WO con traston 11-12-2024 1. Decompressed gallbladder, with apparent cholelithiasis. 2. 9 mm nodular density right middle lobe not appreciably changed. 3. No other acute findings. Report Dictated on Electronically Signed By: Joel Haddad MD Electronically Signed Date/Time: 11/12/2024 11:13 PM [email or web address] [email or web address] Patient Name: WILL ALVARADO : 1965 [...] body habitus versus diastases-type ventral hernia, unchanged. [facility] Joel Haddad MD - 11/12/2024 [...] Electronically Signed Date/Time: 11/12/2024 11:13 PM EST [facility] Radiology Study observation (narrative) [facility] CT Abdomen and Pelvis WO con trastOrdered By: Joel Haddad on 11-12-[address] [facility] Work Phone: ED Provider Noteon ED Provider Note Normal [facility] HEPATIC FUNCTION PANELon Albumin [Mass/Vol] 3.3 g/dL Low 3.5-5.0 [facility] Comment on above: Performed By: #### L AB15, LAB99, LAB20 ####Release Manager: KEMAR ABEBE ([id number])[facility] ([facility])[address] [place] [address] ALP [Catalytic activity/Vol] 143 U/L Normal [facility] Comment on above: Performed By: #### L AB15, LAB99, LAB20 ####Release Manager: KEMAR ABEBE ([id number])[facility] ([facility])[address] [place] [address] ALT [Catalytic activity/Vol] 65 U/L Normal [facility] Comment on above: Performed By: #### L AB15, LAB99, LAB20 ####Release Manager: KEMAR ABEBE ([id number])[facility] ([facility])[address] AST [Catalytic activity/Vol] 42 U/L High <34 [facility] Comment on above: Performed By: #### L AB15, LAB99, LAB20 ####Release Manager: KEMAR MOMINHARRISON ([id number])[facility] ([facility])[address] Bilirubin [Mass/Vol] 0.4 mg/dL Normal <1.[address] [facility] Comment on above: Performed By: #### L AB15, LAB99, LAB20 ####Release Manager: KEMAR MOMINHARRISON ([id number])[facility] ([facility])[address] [place] [address] Bilirubin.indirect [Mass/Vol] 0.2 mg/dL Normal <0.5 [facility] Comment on above: Performed By: #### L AB15, LAB99, LAB20 ####Release Manager: KEMAR MOMINHARRISON ([id number])[facility] ([facility])[address] [place] [address] Protein [Mass/Vol] 6.8 g/dL Normal 6.4-8.3 [facility] Comment on above: Result Comment: Seru m protein values are higher than plasma values. Samples from recumbent persons are lower by up to 0.5 g/dL as compared to ambulatory persons. After 60 years values are lower by up to 0.2 g/dL. Performed By: #### L AB15, LAB99, LAB20 ####Release Manager: KEMAR MOMINHARRISON ([id number])[facility] [place] [address] Hepatic function 2000 panelo n 11-12-2024 Albumin [Mass/Vol] 3.3 g/dL Low 3.5 - 5.0 g/dL [facility] ALP [Catalytic activity/Vol] 143 U/L [facility] ALT [Catalytic activity/Vol] 65 U/L [facility] AST [Catalytic activity/Vol] 42 U/L High NINF - 34 U/L [facility] Bilirubin [Mass/Vol] 0.4 mg/dL NINF - 1.2 mg/dL [facility] Bilirubin.conjugated [Mass/Vol] 0[facility]2 mg/[facility] Interpretation and review of laboratory results Abnormal [facility] Protein [Mass/Vol] 6.8 g/dL 6.4 - 8.3 g/dL [facility] Comment on above: Serum protein values are higher than plasma values. Samples from recumbent persons are lower by up to 0.5 g/dL as compared to ambulatory persons. After 60 years values are lower by up to 0.2 g/dL. LIPASEon 11-12-2024 Lipase [Catalytic activity/Vol] 26 U/L Normal <55 [facility] Comment on above: Performed By: #### L AB15, LAB99, LAB20 ####Release Manager: KEMAR ABEBE ([id number])[facility] ([facility])[address] [place] [address] Laboratory - Chemistry and C hemistry - challengeon 11-12-2024 Lipase [Catalytic activity/Vol] 26 U/L NINF - 55 U/L [facility] Lipase [Catalytic activity/V ol]on 11-12-2024 Interpretation and review of laboratory results Normal [facility] No Panel Informationon 11-[address] [facility] Urine Cultureon 11-11-2024 URC UNKNOWN METHOD OF COLLECTION Mixed Gram Pos Gram Neg Org Lipscomb Count 11,000-25,000 MIXC Mixed contaminants. Submit a new specimen if indicated. Normal [facility] Comment on above: Performed By: #### M 100.2200, L400.0001 #### [facility] [address] [place], [address] Bilirubin Test strip Ql (U)O rdered By: Jared Guzman on 11-10-2024 Bilirubin Ql (U) Negative Negative [facility] Epithelial cells.squamous LM Ql (Urine sed)Ordered By: Jared Guzman on 11-10-2024 Epithelial cells.squamous LM.HPF (Urine sed) [#/Area] 0 /[HPF] 5-10 [facility] Glucose Ql (U)Ordered By: Marcel Piper on 11-10-2024 Urine Glucose (UA) Normal mg/dl Normal [facility] Ketones Test strip Ql (U)Ord ered By: Jared Guzman on 11-10-2024 Ketones Ql (U) Negative Negative [facility] Microscopic analysis of urin e for red blood cells (RBC)Ordered By: Jared Guzman on 11-10-2024 Urine RBC 10-25 SEEN /hpf 0-5 [facility] Mucus LM Ql (Urine sed)Order ed By: Jared Guzman on 11-10-2024 Mucus Ql (Urine sed) 0 SEEN /hpf [facility] Nitrite Test strip Ql (U)Ord ered By: Jared Guzman on 11-10-2024 Nitrite Ql (U) Negative Negative [facility] Progress Noteon 11-10-2024 Progress Note Normal [facility] Protein Test strip Ql (U)Ord ered By: Jared Guzman on 11-10-2024 Protein Ql (U) 500 mg/dl High Negative [facility] Urinalysis, Completeon 11-10 EPI,SQUAMOUS 0-5 SEEN Normal 5-10 [facility] Comment on above: Order Comment: UNKNO WN METHOD OF COLLECTION CLEAN CATCH Performed By: #### M 100.2200, L400.0001 #### [facility] [address] [place], [address] RBC 10-25 SEEN Normal 0-5 [facility] Comment on above: Order Comment: UNKNO WN METHOD OF COLLECTION CLEAN CATCH Performed By: #### M 100.2200, L400.0001 #### [facility] [address] [place], [address] BACTERIA 3+ /hpf Normal None Seen [facility] Comment on above: Order Comment: UNKNO WN METHOD OF COLLECTION CLEAN CATCH Performed By: #### M 100.2200, L400.0001 #### [facility] [address] [place], [address] WBC 10-25 SEEN Normal 0-5 [facility] Comment on above: Order Comment: UNKNO WN METHOD OF COLLECTION CLEAN CATCH Performed By: #### M 100.2200, L400.0001 #### [facility] [address] [place], [address] Mucus Ql (Urine sed) 0 SEEN Normal [facility] Comment on above: Order Comment: UNKNO WN METHOD OF COLLECTION CLEAN CATCH Performed By: #### M 100.2200, L400.0001 #### [facility] [address] [place], [address] Urine blood detectionOrdered By: Jared Guzman on 11-10-2024 Urine Occult Blood 250 /ul High Negative [facility] Urine clarityOrdered By: Mike Guzman on 11-10-2024 Clarity (U) Cloudy Clear [facility] Urine color determinationOrd ered By: Jared Guzman on 11-10-2024 Color (U) Yellow Yellow [facility] Urine cultureOrdered By: Mike Guzman on 11-10-2024 Bacteria identified Cx Nom (U) Mixed Gram Pos & Gram Neg Org Abnormal [facility] Bacteria identified Cx Nom (U) Mixed Gram Pos & Gram Neg Org Abnormal [facility] Urine leukocyte esterase det ection by dipstickOrdered By: Jared Guzman on 11-10-2024 Leukocyte esterase Test strip Ql (U) 100 /ul High Negative [facility] Urine pHOrdered By: Jared moreno on 11-10-2024 pH (U) 6.0 [pH] 5.0 - 8.0 [facility] Urine sediment bacteria coun t by microscopy (number/high power field)Ordered By: Jared Guzman on 11-10-2024 Bacteria LM.HPF (Urine sed) [#/Area] 3 /[HPF] None Seen [facility] Urine specific gravity measu rementOrdered By: Jared Guzman on 11-10-2024 Specific gravity (U) [Rel density] 1.025 1.002-1.030 [facility] Urobilinogen Ql (U)Ordered B y: Jared Guzman on 11-10-2024 Urine Urobilinogen Normal mg/dl Normal [facility] White blood cell countOrdere d By: Jared Guzman on 11-10-2024 Urine WBC 10-25 SEEN /hpf 0-5 [facility] 36on 11-07-2024 36 Released msg to pt's nurse Ninfa. She verbalized understanding Normal [facility] 36 Normal [facility] 36 Patient's BGL Normal [facility] 36on 10-30-2024 36 Released message to nurse [facility] 36 BG log reviewed. No changes to current meds. Send log as needed; otherwise, has appt 11/27 with Ana Maria. Please remind SNF to send BGL and MAR to visit. Thank you! Normal [facility] 36 Patient's BGL Normal [facility] Albumin to globulin ratioOrd ered By: Jared Guzman on 10-30-2024 Albumin/Globulin [Mass ratio] 0.8 {ratio} Low 0.9-2.4 [facility] Bilirubin, totalOrdered By: Jared Guzman on 10-30-2024 Bilirubin [Mass/Vol] 0.40 mg/dL 0.20-1.00 [facility] Comment on above: For patients on eltr ombopag therapy, use of Dimension [place] TBIL is not recommended. Blood urea nitrogen (BUN)/cr eatinine ratioOrdered By: Jared Guzman on 10-30-2024 Urea nitrogen/Creatinine [Mass ratio] 20.3 mg/mg High 10-20 [facility] CBC-Complete Blood Cnt No Di ffon 10-30-2024 Erythrocyte distribution width (RBC) [Ratio] 14.8 % High 11.6-14.6 [facility] Comment on above: Order Comment: 103-1 Performed By: #### L 100.0500, L500.4050 #### [facility] [address] [place], [address] Hematocrit (Bld) [Volume fraction] 32.9 % Low 37-47 [facility] Comment on above: Order Comment: 103-1 Performed By: #### L 100.0500, L500.4050 #### [facility] [address] [place], [address] Hemoglobin (Bld) [Mass/Vol] 10.2 g/dL Low 12.0-15.0 [facility] Comment on above: Order Comment: 103-1 Performed By: #### L 100.0500, L500.4050 #### [facility] [address] [place], [address] MCH (RBC) [Entitic mass] 27.1 pg Normal 27.0-32.0 [facility] Comment on above: Order Comment: 103-1 Performed By: #### L 100.0500, L500.4050 #### [facility] [address] [place], [address] MCHC (RBC) [Mass/Vol] 31.0 g/dL Low 32-36 [facility] Comment on above: Order Comment: 103-1 Performed By: #### L 100.0500, L500.4050 #### [facility] [address] [place], [address] MCV (RBC) [Entitic vol] 87.3 fL Normal 81-99 [facility] Comment on above: Order Comment: 103-1 Performed By: #### L 100.0500, L500.4050 #### [facility] [address] [place], [address] Platelet mean volume (Bld) [Entitic vol] 9.7 fL Normal 6.2-12.0 [facility] Comment on above: Order Comment: 103-1 Performed By: #### L 100.0500, L500.4050 #### [facility] [address] [place], [address] Platelets (Bld) [#/Vol] 387 10*3/uL Normal 150-450 [facility] Comment on above: Order Comment: 103-1 Performed By: #### L 100.0500, L500.4050 #### [facility] [address] [place], [address] RBC (Bld) [#/Vol] 3.77 10*6/uL Low 4.2-5.[address] [facility] Comment on above: Order Comment: 103-1 Performed By: #### L 100.0500, L500.4050 #### [facility] [address] [place], [address] RDW SD 46.8 fl High 35.1-43.9 [facility] Comment on above: Order Comment: 103-1 Performed By: #### L 100.0500, L500.4050 #### [facility] [address] [place], [address] WBC (Bld) [#/Vol] 9.0 10*3/uL Normal 4.4-11.0 [facility] Comment on above: Order Comment: 103-1 Performed By: #### L 100.0500, L500.4050 #### [facility] [address] [place], [address] Carbon dioxide measurementOr dered By: Jared Guzman on 10-30-2024 CO2 [Moles/Vol] 26.0 mmol/L 21.0-32.0 [facility] Chloride measurementOrdered By: Jared Guzman on 10-30-2024 Chloride [Moles/Vol] 108 mmol/L High 98-107 [facility] Comprehensive Metabolic Prof ilon 10-30-2024 Albumin [Mass/Vol] 2.8 g/dL Low 3.2-5.0 [facility] Comment on above: Order Comment: 103-1 Performed By: #### L 100.0500, L500.4050 #### [facility] [address] [place], [address] Albumin/Globulin [Mass ratio] 0.8 {ratio} Low 0.9-2.4 [facility] Comment on above: Order Comment: 103-1 Performed By: #### L 100.0500, L500.4050 #### [facility] [address] [place], [address] ALK P 113 U/L Normal 45-117 [facility] Comment on above: Order Comment: 103-1 Performed By: #### L 100.0500, L500.4050 #### [facility] [address] [place], [address] ALT [Catalytic activity/Vol] 25 U/L Normal 13-56 [facility] Comment on above: Order Comment: 103-1 Performed By: #### L 100.0500, L500.4050 #### [facility] [address] [place], [address] AST [Catalytic activity/Vol] 18 U/L Normal 15-37 [facility] Comment on above: Order Comment: 103-1 Performed By: #### L 100.0500, L500.4050 #### [facility] [address] [place], [address] Bilirubin [Mass/Vol] 0.40 mg/dL Normal 0.20-1.00 [facility] Comment on above: Order Comment: 103-1 Result Comment: For patients on eltrombopag therapy, use of Dimension [place] TBIL is not recommended. Performed By: #### L 100.0500, L500.4050 #### [facility] [address] [place], [address] BUN/CRE 20.3 RATIO High 10-20 [facility] Comment on above: Order Comment: 103-1 Performed By: #### L 100.0500, [id number] #### [facility] [address] [place], [address] CA,Total 8.8 mg/dL Normal 8.5-10.1 [facility] Comment on above: Order Comment: 103-1 Performed By: #### L 100.0500, [id number] #### [facility] [address] [place], [address] Chloride [Moles/Vol] 108 mmol/L High 98-107 [facility] Comment on above: Order Comment: 103- Performed By: #### L 100.0500, L500.4050 #### [facility] [address] [place], [address] CO2 [Moles/Vol] 26.0 mmol/L Normal 21.0-32.0 [facility] Comment on above: Order Comment: 103- Performed By: #### L 100.0500, L500.4050 #### [facility] [address] [place], [address] Creatinine [Mass/Vol] 0.69 mg/dL Normal 0.55-1.02 [facility] Comment on above: Order Comment: 103-1 Result Comment: The validity of the calculated GFR GFRAA in patients over 70 years has not been determined. Clinical correlation is essential. Performed By: #### L 100.0500, L500.4050 #### [facility] [address] [place], [address] EST GFR - AA 112 mL/min Normal >60 [facility] Comment on above: Order Comment: 103-1 Result Comment: Afri can [facility] GFR Calc Performed By: #### L 100.0500, L500.4050 #### [facility] [address] [place], [address] GAP 5 Normal 5-15 [facility] Comment on above: Order Comment: 103-1 Performed By: #### L 100.0500, L500.4050 #### [facility] [address] [place], [address] GFR/1.73 sq M.predicted among non-blacks MDRD (S/P/Bld) [Vol rate/Area] 93 mL/min/{1.73_m2} Normal >60 [facility] Comment on above: Order Comment: 103-1 Result Comment: Non- GFR Calc Performed By: #### L 100.0500, L500.4050 #### [facility] [address] [place], [address] Globulin (S) [Mass/Vol] 3.7 g/dL Normal 2.2-4.2 [facility] Comment on above: Order Comment: 103-1 Performed By: #### L 100.0500, L500.4050 #### [facility] [address] [place], [address] Glucose [Mass/Vol] 105 mg/dL Normal 74-106 [facility] Comment on above: Order Comment: - Result Comment: Fast ing Glucose result from 100 to 125 mg/dL suggests IMPAIRED HOMEOSTASIS per A.D.A. criteria. Performed By: #### L 100.0500, L500.4050 #### [facility] [address] [place], [address] Potassium [Moles/Vol] 4.4 mmol/L Normal 3.5-5.1 [facility] Comment on above: Order Comment: 103-1 Performed By: #### L 100.0500, L500.4050 #### [facility] [address] [place], [address] Sodium [Moles/Vol] 139 mmol/L Normal 136-145 [facility] Comment on above: Order Comment: 103-1 Performed By: #### L 100.0500, L500.4050 #### [facility] [address] [place], [address] T PROT 6.5 g/dL Normal 6.4-8.2 [facility] Comment on above: Order Comment: 103-1 Performed By: #### L 100.0500, L500.4050 #### [facility] [address] [place], [address] Urea nitrogen [Mass/Vol] 14 mg/dL Normal 7-18 [facility] Comment on above: Order Comment: 103-1 Performed By: #### L 100.0500, L500.4050 #### [facility] [address] [place], [address] Erythrocyte distribution wid th ratioOrdered By: Jared Guzman on 10-30-2024 Erythrocyte distribution width (RBC) [Ratio] 14.8 % High 11.6-14.6 [facility] Erythrocyte distribution wid th standard deviationOrdered By: Jared Guzman on 10-30-2024 Erythrocyte distribution width (RBC) [Entitic vol] 46.8 fL High 35.1-43.9 [facility] Estimated glomerular filtrat ion rate (GFR) AmericanOrdered By: Jared Guzman on 10-30-2024 Estimated GFR (MDRD) Amer 112 mL/min >60 [facility] Comment on above: GFR Calc Glomerular filtration rate ( GFR) estimationOrdered By: Jared Guzman on 10-30-2024 Estimated GFR (MDRD) Non-Af Amer 93 mL/min >60 [facility] Comment on above: Non- GFR Calc Glucose measurementOrdered B y: Jared Guzman on 10-30-2024 Glucose [Mass/Vol] 105 mg/dL 74-106 [facility] Comment on above: Fasting Glucose resu lt from 100 to 125 mg/dL suggests IMPAIRED HOMEOSTASIS per A.D.A. criteria. Hematocrit Auto (Bld) [Volum e fraction]Ordered By: Jared Guzman on 10-30-2024 Hematocrit (Bld) [Volume fraction] 32.9 % Low 37-47 [facility] Hemoglobin measurementOrdere d By: Jared Guzman on 10-30-2024 Hemoglobin (Bld) [Mass/Vol] 10.2 g/dL Low 12.0-15.0 [facility] Laboratory - Chemistry and C hemistry - challengeOrdered By: Jared Guzman on 10-30-2024 AST [Catalytic activity/Vol] 18 U/L 15-37 [facility] MCV (mean corpuscular volume ) determinationOrdered By: Jared Guzman on 10-30-2024 MCV (RBC) [Entitic vol] 87.3 fL 81-99 [facility] Mean corpuscular hemoglobin (MCH) determinationOrdered By: Jared Guzman on 10-30-2024 MCH (RBC) [Entitic mass] 27.1 pg 27.0-32.0 [facility] Mean corpuscular hemoglobin concentration (MCHC) determinationOrdered By: Jared Guzman on 10-30-2024 MCHC (RBC) [Mass/Vol] 31.0 g/dL Low 32-36 [facility] Mean platelet volume determi nationOrdered By: Jraed Guzman on 10-30-2024 Platelet mean volume (Bld) [Entitic vol] 9.7 fL 6.2-12.0 [facility] Platelet countOrdered By: Marcel Piper on 10-30-2024 Platelets (Bld) [#/Vol] 387 10*3/uL 150-450 [facility] Potassium measurementOrdered By: Jared Guzman on 10-30-2024 Potassium [Moles/Vol] 4.4 mmol/L 3.5-5.1 [facility] RBC Auto (Bld) [#/Vol]Ordere d By: Jared Guzman on 10-30-2024 RBC (Bld) [#/Vol] 3.77 10*6/uL Low 4.2-5.[address] [facility] Serum anion gap measurementO rdered By: Jared Guzman on 10-30-2024 Anion gap [Moles/Vol] 5 mmol/L 5-15 [facility] Serum globulin measurementOr dered By: Jared Guzman on 10-30-2024 Globulin (S) [Mass/Vol] 3.7 g/dL 2.2-4.2 [facility] Serum or plasma alanine jones otransferase (ALT) measurementOrdered By: Jared Guzman on 10-30-2024 ALT [Catalytic activity/Vol] 25 U/L 13-56 [facility] Serum or plasma albumin mauricio urement (mass/volume)Ordered By: Jared Guzmna on 10-30-2024 Albumin [Mass/Vol] 2.8 g/dL Low 3.2-5.0 [facility] Serum or plasma alkaline abbey sphatase measurementOrdered By: Jared Guzman on 10-30-2024 ALP [Catalytic activity/Vol] 113 U/L 45-117 [facility] Serum or plasma calcium mauricio urement (mass/volume)Ordered By: Jared Guzman on 10-30-2024 Calcium [Mass/Vol] 8.8 mg/dL 8.5-10.1 [facility] Serum or plasma creatinine m easurement (mass/volume)Ordered By: Jared Guzman on 10-30-2024 Creatinine [Mass/Vol] 0.69 mg/dL 0.55-1.02 [facility] Comment on above: The validity of the calculated GFR & GFRAA in patients over 70 years has not been determined. Clinical correlation is essential. Serum or plasma urea nitroge n measurement (mass/volume)Ordered By: Jared Guzman on 10-30-2024 Urea nitrogen [Mass/Vol] 14 mg/dL 7-18 [facility] Sodium levelOrdered By: Main Guzman on 10-30-2024 Sodium [Moles/Vol] 139 mmol/L 136-145 [facility] Total proteinOrdered By: Mike Guzman on 10-30-2024 Protein [Mass/Vol] 6.5 g/dL 6.4-8.2 [facility] White blood cell (WBC) count Ordered By: Jared Guzman on 10-30-2024 WBC (Bld) [#/Vol] 9.0 10*3/uL 4.4-11.0 [facility] ECG 12-LEADon 2024 ECG 12-LEAD IMPRESSION: Sinus rhythm Left bundle branch block Compared to ECG 10/18/24 No significant change Electronically Signed On 2024 00:25:40 EST by Fermin Melchor Normal [facility] 36on 10-24-2024 36 Shayy called back w josefina scheduled an appointment with Ana Maria on 11/27/24 and another one on 03/27/25 with Thalia. Normal [facility] 36 Normal [facility] CBC (HEMOGRAM)on 10-24-2024 Erythrocyte distribution width (RBC) [Ratio] 13.8 % Normal 11.5-15.0 [facility] Comment on above: Performed By: #### L [id number] ####Release Manager: KEMAR MOMINHiginioSAAD ([id number])[place]I [place] (SBHLAB)[address] [place] [address] Hematocrit (Bld) [Volume fraction] 39.3 % Normal Male: 40.0-52.0 ; Female: 35.0-47.0 [facility] Comment on above: Performed By: #### L [id number] ####Release Manager: KEMAR ANDRAE ([id number])[facility]ENTERWarren [facility]EF[facility]ITALEmmie (SBAB)[address] [place] [address] Hemoglobin (Bld) [Mass/Vol] 12.3 g/dL Normal 11.7-18.0 [facility] Comment on above: Performed By: #### L [id number] ####Release Manager: KEMAR ANDRAE ([id number])[facility]ENTERWar[facility] ([facility])[address] [place] [address] MCH (RBC) [Entitic mass] 27.0 pg Normal 26.0-34.0 [facility] Comment on above: Performed By: #### L [id number] ####Release Manager: KEMAR MOMINHiginioSAAD ([phone])[facility]ENTERWar[facility] ([facility])[address] [place] [address] MCHC 31.3 % Normal 30.5-36.0 [facility] Comment on above: Performed By: #### L [id number] ####Release Manager: KEMAR LUDWIGSAAD ([id number])[facility]ENTERWar[facility] ([facility])[address] [place] [address] MCV (RBC) [Entitic vol] 86.2 fL Normal 77.0-99.0 [facility] Comment on above: Performed By: #### L [id number] ####Release Manager: KEMAR LUDWIGSAAD ([id number])[facility]ENTERWar[facility] ([facility])[address] [place] [address] Platelet mean volume (Bld) [Entitic vol] 9.7 fL Normal 9.0-12.7 [facility] Comment on above: Performed By: #### L [id number] ####Release Manager: KEMAR ABEBE ([id number])[facility] (SBHLAB)[address] Platelets (Bld) [#/Vol] 465 10*3/uL High 140-440 [facility] Comment on above: Performed By: #### L [id number] ####Release Manager: KEMAR ABEBE ([id number])[facility] (SBAB)[address] RBC (Bld) [#/Vol] 4.56 10*6/uL Normal Male: 4.40-5.90; Female: 3.80-5.20 [facility] Comment on above: Performed By: #### L [id number] ####Release Manager: KEMAR ABEBE ([id number])[facility] ([facility])[address] [place] [address] WBC (Bld) [#/Vol] 9.8 10*3/uL Normal 3.6-10.7 [facility] Comment on above: Performed By: #### L [id number] ####Release Manager: KEMAR ABEBE ([id number])[facility] ([facility])[address] [place] [address] CBC panel Auto (Bld)Ordered By: Justin Mao on 10-24-2024 Erythrocyte distribution width (RBC) [Ratio] 13.8 % 11.5 - 15.0 % [facility] Hematocrit (Bld) [Volume fraction] 39.3 % Male: 40.0-52.0 ; Female: 35.0-47.[address] [facility] Hemoglobin (Bld) [Mass/Vol] 12.3 g/dL 11.7 - 18.0 g/dL [facility] Interpretation and review of laboratory results Abnormal [facility] MCH (RBC) [Entitic mass] 27 pg 26.0 - 34.[address] [facility] MCHC (RBC) [Mass/Vol] 31.3 % 30.5 - 36.0 % [facility] MCV (RBC) [Entitic vol] 86.2 fL 77.0 - 99.[address] [facility] Platelet mean volume (Bld) [Entitic vol] 9.7 fL 9.0 - 12.[address] [facility] Platelets (Bld) [#/Vol] 465 10*3/uL High 140 - 440 10*3/uL [facility] RBC (Bld) [#/Vol] 4.56 10*6/uL Male: 4.40-5.90; Female: 3.80-5.[address] [facility] WBC (Bld) [#/Vol] 9.8 10*3/uL 3.6 - 10.7 10*3/uL [facility] COMPLETE URINALYSISon 2023 BACTERIA (#/HPF) IN URINE Negative Normal Negative [facility] Comment on above: Performed By: #### L [id number] ####Release Manager: KEMAR ABEBE ([id number])[facility] ([facility])[address] [place] [address] BILIRUBIN, TOTAL PRESENCE IN URINE Negative Normal Negative [facility] Comment on above: Performed By: #### L [id number] ####Release Manager: KEMAR ABEBE ([id number])[facility] ([facility])[address] [place] [address] Clarity (U) Clear Normal Clear [facility] Comment on above: Performed By: #### L [id number] ####Release Manager: KEMAR ABEBE ([id number])[facility] ([facility])[address] [place] [address] Color (U) Light Yellow Normal Lt. Yellow [facility] Comment on above: Performed By: #### L [id number] ####Release Manager: KEMAR ABEBE ([id number])[facility] ([facility])[address] [place] [address] GLUCOSE (MG/DL) IN URINE Normal Normal Normal (<70) [facility] Comment on above: Performed By: #### L [id number] ####Release Manager: KEMAR ABEBE ([id number])[facility] (SBHLAB)[address] HEMOGLOBIN PRESENCE IN URINE Negative Normal Negative [facility] Comment on above: Performed By: #### L [id number] ####Release Manager: KEMAR ABEBE ([id number])[facility] ([facility])[address] Ketones Ql (U) Negative Normal Negative [facility] Comment on above: Performed By: #### L [id number] ####Release Manager: KEMAR ABEBE ([id number])[facility] ([facility])[address] LEUKOCYTE ESTERASE PRESENCE IN URINE BY TEST STRIP Negative Normal Negative [facility] Comment on above: Performed By: #### L [id number] ####Release Manager: KEMAR ABEBE ([id number])[facility] ([facility])[address] MUCUS (#/LPF) IN URINE SEDIMENT Few Normal Negative [facility] Comment on above: Performed By: #### L [id number] ####Release Manager: KEMAR ABEBE ([id number])[facility] (HLAB)[address] NITRITE PRESENCE IN URINE Negative Normal Negative [facility] Comment on above: Performed By: #### L [id number] ####Release Manager: KEMAR ABEBE ([phone])[facility] (HLAB)[address] NON-SQUAMOUS EPITHELIAL (#/HPF) IN URINE 3-5 Abnormal Negative [facility] Comment on above: Performed By: #### L [id number] ####Release Manager: KEMAR ABEBE ([id number])[facility] (HLAB)[address] pH (U) 7.0 [pH] Normal 5.0-8.0 [facility] Comment on above: Performed By: #### L [id number] ####Release Manager: KEMAR ABEBE ([id number])[facility] (SB[facility])[address] Protein (U) [Mass/Vol] 70 mg/dL Abnormal Negative [facility] Comment on above: Performed By: #### L [id number] ####Release Manager: KEMAR ABEBE ([id number])[facility] [place] ([facility])[address] [place] [address] [place] RBC (#/HPF) IN URINE SEDIMENT 3-5 Abnormal 0-2 [facility] Comment on above: Performed By: #### L [id number] ####Release Manager: KEMAR ABEBE ([id number])[facility] [place] ([facility])[address] Specific gravity (U) [Rel density] 1.011 Normal 1.005-1.030 [facility] Comment on above: Performed By: #### L [id number] ####Release Manager: KEMAR ABEBE ([id number])[facility] [place] ([facility])[address] SQUAMOUS EPITHELIAL CELLS (#/HPF) IN URINE SEDIMENT 0-2 Normal 3-5 [facility] Comment on above: Performed By: #### L [id number] ####Release Manager: KEMAR ABEBE ([id number])[facility] [place] ([facility])[address] UROBILINOGEN (MG/DL) IN URINE Normal Normal Normal (0-1) [facility] Comment on above: Performed By: #### L [id number] ####Release Manager: KEMAR ABEBE ([id number])[facility] [place] ([facility])[address] [place] [address] [place] WBC (LEUKOCYTE) (#/HPF) IN URINE SEDIMENT 6-10 Abnormal 0-5 [facility] Comment on above: Performed By: #### L [id number] ####Release Manager: KEMAR ABEBE ([id number])[facility] [place] ([facility])[address] COMPREHENSIVE METABOLIC PANE Gigi 10-24-2024 Albumin [Mass/Vol] 3.0 g/dL Low 3.5-5.0 [facility] Comment on above: Performed By: #### L [id number], LAB17 ####Release Manager: KEMAR ABEBE ([id number])[facility] [place] ([facility])[address] ALP [Catalytic activity/Vol] 117 U/L Normal [facility] Comment on above: Performed By: #### L [id number], LAB17 ####Release Manager: KEMAR ABEBE ([id number])[facility] [place] ([facility])[address] ALT [Catalytic activity/Vol] 22 U/L Normal [facility] Comment on above: Performed By: #### L [id number], LAB17 ####Release Manager: KEMAR ABEBE ([id number])[facility] [place] ([facility])[address] Anion gap [Moles/Vol] 10 mmol/L Normal 3-13 [facility] Comment on above: Performed By: #### L [id number], LAB17 ####Release Manager: KEMAR ABEBE ([id number])[facility] [place] ([facility])[address] AST [Catalytic activity/Vol] 28 U/L Normal <34 [facility] Comment on above: Performed By: #### L [id number], LAB17 ####Release Manager: KEMAR ABEBE ([id number])[facility] [place] ([facility])[address] Bilirubin [Mass/Vol] 0.4 mg/dL Normal <1.2 [facility] Comment on above: Performed By: #### L [id number], LAB17 ####Release Manager: KEMAR ABEBE ([id number])[facility] [place] ([facility])[address] [place] [address] [place] Calcium [Mass/Vol] 9.3 mg/dL Normal 8.4-10.2 [facility] Comment on above: Performed By: #### L [id number], LAB17 ####Release Manager: KEMAR ABEBE ([id number])[facility]ENTERWarren [facility] (SB[facility])[address] [place] [address] [place] Chloride [Moles/Vol] 100 mmol/L Normal 98-[address] [facility] Comment on above: Performed By: #### L [id number], LAB17 ####Release Manager: KEMAR ABEBE ([id number])[facility] (SB[facility]AB)[address] CO2 [Moles/Vol] 27 mmol/L Normal 22-29 [facility] Comment on above: Performed By: #### L [id number], LAB17 ####Release Manager: KEMAR ABEBE ([id number])[facility] ([facility])[address] Creatinine [Mass/Vol] 0.84 mg/dL Normal [facility] Comment on above: Performed By: #### L [id number], LAB17 ####Release Manager: KEMAR ABEBE ([id number])[facility] (SB[facility])[address] [place] [address] [place] GLOMERULAR FILTRATION RATE ML/MIN/1.73 SQ M.PREDICTED 81.2 mL/min/1.73m*2 Normal >60.0 [facility] Comment on above: Result Comment: Calc ulation based on the Chronic Kidney Disease Epidemiology Collaboration (CKD-EPI) equation refit without adjustment for race Performed By: #### L [id number], LAB17 ####Release Manager: KEMAR ABEBE ([id number])[facility] ([facility])[address] [place] [address] [place] Glucose [Mass/Vol] 207 mg/dL High 74-100 [facility] Comment on above: Performed By: #### L [id number], LAB17 ####Release Manager: KEMAR ABEBE ([id number])[facility] ([facility])[address] Potassium [Moles/Vol] 4.6 mmol/L Normal 3.5-5.1 [facility] Comment on above: Result Comment: [facility] potassium values may be up to 0.5 mmol/L lower than serum values. Performed By: #### L [id number], LAB17 ####Release Manager: KEMAR ABEBE ([id number])[facility] ([facility])[address] Protein [Mass/Vol] 7.0 g/dL Normal 6.4-8.3 [facility] Comment on above: Performed By: #### L [id number], LAB17 ####Release Manager: KEMAR ABEBE ([id number])[facility] ([facility])[address] Sodium [Moles/Vol] 137 mmol/L Normal 136-145 [facility] Comment on above: Performed By: #### L [id number], LAB17 ####Release Manager: KEMAR ABEBE ([id number])[facility] ([facility])[address] Urea nitrogen [Mass/Vol] 15 mg/dL Normal 9-23 [facility] Comment on above: Performed By: #### L [id number], LAB17 ####Release Manager: KEMAR ABEBE ([id number])[facility] ([facility])[address] Comprehensive metabolic 1998 panelOrdered By: Hans Watson on 10-24-2024 Albumin [Mass/Vol] 3 g/dL Low 3.5 - 5.0 g/dL [facility] ALP [Catalytic activity/Vol] 117 U/L [facility] ALT [Catalytic activity/Vol] 22 U/L [facility] Anion gap [Moles/Vol] 10 mmol/L 3 - 13 mmol/L [facility] AST [Catalytic activity/Vol] 28 U/L NINF - 34 U/L [facility] Bilirubin [Mass/Vol] 0.4 mg/dL NINF - 1.2 mg/dL [facility] Calcium [Mass/Vol] 9.3 mg/dL 8.4 - 10. 2 mg/dL [facility] Chloride [Moles/Vol] 100 mmol/L 98 - 10 7 mmol/L [facility] CO2 [Moles/Vol] 27 mmol/L 22 - 29 mmol/L [facility] Creatinine [Mass/Vol] 0.84 mg/dL [facility] GFR/1.73 sq M.predicted (S/P/Bld) [Vol rate/Area] 81.2 mL/min - PINF [facility] Comment on above: Calculation based on the Chronic Kidney Disease Epidemiology Collaboration (CKD-EPI) equation refit without adjustment for race Glucose [Mass/Vol] 207 mg/dL High 74 - 100 mg/dL [facility] Interpretation and review of laboratory results Abnormal [facility] Potassium [Moles/Vol] 4.6 mmol/L 3.5 - 5.1 mmol/L [facility] Comment on above: Plasma potassium helen ues may be up to 0.5 mmol/L lower than serum values. Protein [Mass/Vol] 7 g/dL 6.4 - 8.3 g/dL [facility] Sodium [Moles/Vol] 137 mmol/L 136 - 145 mmol/L [facility] Urea nitrogen [Mass/Vol] 15 mg/dL 9 - 23 mg/dL [facility] ED Nursing Noteon 10-24-2024 ED Nursing Note Pt placed on bedpan, urine sample collected and sent to lab. Normal [facility] ED Nursing Note Pt provided with sandwich and pop, ok per Dr Mixon Normal [facility] ED Nursing Note Normal [facility] ED Nursing Note Pt arrives by Roni Perez MS for blood in urine and change in mental status. Pt has chronic lewis and has blood present. BP elevated, BG 154 (low per SNF because pt is normally in 300 range). Pt is DNR-CCA. Normal [facility] ED Provider Noteon ED Provider Note Normal [facility] HIGH SENSITIVITY TROPONIN, S ERIAL BASELINEon 10-24-2024 TROPONIN HIGH SENSITIVITY BASELINE <3 Normal [facility] Comment on above: Performed By: #### L [id number], LAB17 ####Release Manager: KEMAR ABEBE ([id number])[facility]ENTER[facility] [place] (SB[facility])[address] [place] [address] LACTIC ACID WITH REFLEXon Lactate [Moles/Vol] 1.5 mmol/L Normal 0.5-2.[address] [facility] Comment on above: Performed By: #### L [id number] ####Release Manager: KEMAR ABEBE ([id number])[facility]ENTER[facility] [place] ([facility])[address] [place] [address] Laboratory - Chemistry and C hemistry - challengeon 10-24-2024 Lactate [Moles/Vol] 1.5 mmol/L 0.5 - 2. 2 mmol/L [facility] Glucose [Mass/Vol] 175 mg/dL High 70 - 100 mg/dL [facility] No Panel Informationon 10-24 Troponin HS, Serial Baseline ng/L ng/L [facility] Interpretation and review of laboratory results Normal [facility] Interpretation and review of laboratory results Abnormal [facility] Performed by: [facility], [address] [place] [address] CLIA ID: [id number] [facility] Urinalysis complete panel (U )on 10-24-2024 Bacteria LM.HPF (Urine sed) [#/Area] Negative Negative /HPF [facility] Bilirubin Ql (U) Negative Negative mg/dL [facility] Clarity (U) Clear Clear [facility] Color (U) Light Yellow Lt. Yellow [facility] Epithelial cells.squamous LM.HPF (Urine sed) [#/Area] 0-[address] [facility] Glucose Ql (U) Normal Normal (<70) mg/dL [facility] Hemoglobin Ql (U) Negative Negative mg/dL [facility] Interpretation and review of laboratory results Abnormal [facility] Ketones (U) [Mass/Vol] Negative Negat bernard mg/dL [facility] Leukocyte esterase Test strip Ql (U) Negative Negative Kat/uL [facility] Mucus LM.HPF (Urine sed) [#/Area] Few Negative /LPF [facility] Nitrite Ql (U) Negative Negative [facility] Non-Squamous Epithalial Cells, Urine 3-5 Abnormal Negative /HPF [facility] pH (U) 7.0 [pH] 5.0 - 8.[address] [facility] Protein (U) [Mass/Vol] 70 mg/dL Abnormal Negative [facility] RBC LM.HPF (Urine sed) [#/Area] 3-[address] [facility] Specific gravity (U) [Rel density] 1.011 1.005 - 1.[address] [facility] Urobilinogen (U) [Mass/Vol] Normal Normal (0-1) mg/dL [facility] WBC LM.HPF (Urine sed) [#/Area] 6-10 Abnormal [facility] [id number] 10-23-2024 [id number] Normal [facility] [id number] Discharge med list transmitted to return back to [facility] via [employer] per TCC request. Normal [facility] [id number] Normal [facility] [id number] DC orders in and sig nazario by Dr. Thomas. DISTRIBUTION SALES MANAGER set up transport. [employer] SUPERVISOR tasked in [employer] to send DC info [facility] . DC back [facility] in stable condition. . Normal [facility] CBC W Auto Differential pane l (Bld)on 10-23-2024 Basophils (Bld) [#/Vol] 0.1 10*3/uL 0.0 - 0.2 10*3/uL [facility] Basophils/100 WBC (Bld) 0.7 % 0.0 - 2.0 % [facility] Eosinophils (Bld) [#/Vol] 0.2 10*3/uL 0.0 - 0.5 10*3/uL [facility] Eosinophils/100 WBC (Bld) 2.4 % 0.0 - 6.0 % [facility] Erythrocyte distribution width (RBC) [Ratio] 13.5 % 11.5 - 15.0 % [facility] Hematocrit (Bld) [Volume fraction] 29.9 % Male: 40.0-52.0 ; Female: 35.0-47.[address] [facility] Hemoglobin (Bld) [Mass/Vol] 9.5 g/dL Low 11.7 - 18.0 g/dL [facility] Immature granulocytes (Bld) [#/Vol] 0.1 10*3/uL High NINF - 0.1 10*3/uL [facility] Immature granulocytes/100 WBC (Bld) 1.5 % 0.0 - 2.0 % [facility] Interpretation and review of laboratory results Abnormal [facility] Lymphocytes (Bld) [#/Vol] 1.8 10*3/uL 1.0 - 4.3 10*3/uL [facility] Lymphocytes/100 WBC (Bld) 24.6 % 15.0 - 45.0 % [facility] MCH (RBC) [Entitic mass] 27.1 pg 26.0 - 34.[address] [facility] MCHC (RBC) [Mass/Vol] 31.8 % 30.5 - 36.0 % [facility] MCV (RBC) [Entitic vol] 85.2 fL 77.0 - 99.[address] [facility] Monocytes (Bld) [#/Vol] 0.8 10*3/uL 0.0 - 0.9 10*3/uL [facility] Monocytes/100 WBC (Bld) 10.6 % 5.0 - 13.0 % [facility] Neutrophils (Bld) [#/Vol] 4.5 10*3/uL 1.8 - 7.5 10*3/uL [facility] Neutrophils/100 WBC (Bld) 60.2 % 38.0 - 82.0 % [facility] Nucleated RBC/100 WBC (Bld) [Ratio] 0 % [facility] Platelet mean volume (Bld) [Entitic vol] 9.6 fL 9.0 - 12.[address] [facility] Platelets (Bld) [#/Vol] 407 10*3/uL 140 - 440 10*3/uL [facility] RBC (Bld) [#/Vol] 3.51 10*6/uL Male: 4.40-5.90; Female: 3.80-5.[address] [facility] WBC (Bld) [#/Vol] 7.5 10*3/uL 3.6 - 10.7 10*3/uL [facility] CBC WITH AUTO DIFFERENTIALon 10-23-2024 Basophils (Bld) [#/Vol] 0.1 10*3/uL Normal 0.0-0.2 [facility] Comment on above: Performed By: #### L [id number] ####Release Manager: KEMAR ABEBE ([id number])[facility] (SBHLAB)[address] Basophils/100 WBC (Bld) 0.7 % Normal 0.0-2.0 [facility] Comment on above: Performed By: #### L [id number] ####Release Manager: KEMAR ABEBE ([id number])[facility] [place] ([facility])[address] Eosinophils (Bld) [#/Vol] 0.2 10*3/uL Normal 0.0-0.5 [facility] Comment on above: Performed By: #### L [id number] ####Release Manager: KEMAR ABEBE ([id number])[facility] [place] ([facility])[address] Eosinophils/100 WBC (Bld) 2.4 % Normal 0.0-6.0 [facility] Comment on above: Performed By: #### L [id number] ####Release Manager: KEMAR ABEBE ([id number])[facility] [place] ([facility])[address] Erythrocyte distribution width (RBC) [Ratio] 13.5 % Normal 11.5-15.0 [facility] Comment on above: Performed By: #### L [id number] ####Release Manager: KEMAR ABEBE ([id number])[facility] [place] ([facility])[address] Hematocrit (Bld) [Volume fraction] 29.9 % Normal Male: 40.0-52.0 ; Female: 35.0-47.0 [facility] Comment on above: Performed By: #### L [id number] ####Release Manager: KEMAR ABEBE ([id number])[facility] (SBHLAB)[address] Hemoglobin (Bld) [Mass/Vol] 9.5 g/dL Low 11.7-18.0 [facility] Comment on above: Performed By: #### L [id number] ####Release Manager: KEMAR ABEBE ([id number])[facility] (SBHLAB)[address] IMMATURE GRANS % 1.5 % Normal 0.0-2.0 [facility] Comment on above: Performed By: #### L [id number] ####Release Manager: KEMAR ABEBE ([id number])[facility] (SBHLAB)[address] IMMATURE GRANS ABSOLUTE 0.1 10*3/uL High <0.1 [facility] Comment on above: Performed By: #### L [id number] ####Release Manager: KEMAR ABEBE ([id number])[facility] (SBHLAB)[address] Lymphocytes (Bld) [#/Vol] 1.8 10*3/uL Normal 1.0-4.3 [facility] Comment on above: Performed By: #### L [id number] ####Release Manager: KEMAR ABEBE ([id number])[facility] (SB[facility])[address] Lymphocytes/100 WBC (Bld) 24.6 % Normal 15.0-45.0 [facility] Comment on above: Performed By: #### L [id number] ####Release Manager: KEMAR ABEBE ([id number])[facility] [place] ([facility])[address] MCH (RBC) [Entitic mass] 27.1 pg Normal 26.0-34.0 [facility] Comment on above: Performed By: #### L [id number] ####Release Manager: KEMAR ABEBE ([id number])[facility] [place] ([facility])[address] MCHC 31.8 % Normal 30.5-36.0 [facility] Comment on above: Performed By: #### L [id number] ####Release Manager: KEMAR LUDWIGSAAD ([id number])[facility] (SBHLAB)[address] MCV (RBC) [Entitic vol] 85.2 fL Normal 77.0-99.0 [facility] Comment on above: Performed By: #### L [id number] ####Release Manager: KEMAR ABEBE ([id number])[facility] (SBHLAB)[address] Monocytes (Bld) [#/Vol] 0.8 10*3/uL Normal 0.0-0.9 [facility] Comment on above: Performed By: #### L [id number] ####Release Manager: KEMAR ABEBE ([id number])[facility] (SBHLAB)[address] Monocytes/100 WBC (Bld) 10.6 % Normal 5.0-13.0 [facility] Comment on above: Performed By: #### L [id number] ####Release Manager: KEMAR LUDWIGSAAD ([id number])[facility] (SBHLAB)[address] NEUTROPHILS ABSOLUTE 4.5 10*3/uL Normal 1.8-7.5 [facility] Comment on above: Performed By: #### L [id number] ####Release Manager: KEMAR LUDWIGSAAD ([id number])[facility] (SBHLAB)[address] Neutrophils/100 WBC (Bld) 60.2 % Normal 38.0-82.0 [facility] Comment on above: Performed By: #### L [id number] ####Release Manager: KEMAR ABEBE ([id number])[facility] (SBHLAB)[address] NRBC 0.0 /100 WBCs Normal 0.0-2.0 [facility] Comment on above: Performed By: #### L [id number] ####Release Manager: KEMAR ABEBE ([id number])[facility]ENTERWarren WADEFORT [facility] H[facility]PITALEmmie (SBHLAB)[address] Platelet mean volume (Bld) [Entitic vol] 9.6 fL Normal 9.0-12.7 [facility] Comment on above: Performed By: #### L [id number] ####Release Manager: KEMAR ABEBE ([id number])[facility] (SBHLAB)[address] Platelets (Bld) [#/Vol] 407 10*3/uL Normal 140-440 [facility] Comment on above: Performed By: #### L [id number] ####Release Manager: KEMAR ABEBE ([id number])[facility] (SBHLAB)[address] [place] [address] RBC (Bld) [#/Vol] 3.51 10*6/uL Normal Male: 4.40-5.90; Female: 3.80-5.20 [facility] Comment on above: Performed By: #### L [id number] ####Release Manager: KEMAR ABEBE ([id number])[facility] (SBAB)[address] [place] [address] WBC (Bld) [#/Vol] 7.5 10*3/uL Normal 3.6-10.7 [facility] Comment on above: Performed By: #### L [id number] ####Release Manager: KEMAR ABEBE ([id number])[facility] (SBHLAB)[address] COMPREHENSIVE METABOLIC PANE Gigi 10-23-2024 Albumin [Mass/Vol] 2.6 g/dL Low 3.5-5.0 [facility] Comment on above: Performed By: #### L AB17, [id number] ####Release Manager: KEMAR ABEBE ([id number])[facility] (SBHLAB)[address] ALP [Catalytic activity/Vol] 115 U/L Normal [facility] Comment on above: Performed By: #### L AB17, [id number] ####Release Manager: KEMAR ABEBE ([id number])[facility] (SBHLAB)[address] ALT [Catalytic activity/Vol] 27 U/L Normal [facility] Comment on above: Performed By: #### L AB17, [id number] ####Release Manager: KEMAR ABEBE ([id number])[facility] (SBHLAB)[address] Anion gap [Moles/Vol] 7 mmol/L Normal 3-13 [facility] Comment on above: Performed By: #### L AB17, [id number] ####Release Manager: KEMAR ABEBE ([id number])[facility] [place] ([facility])[address] AST [Catalytic activity/Vol] 18 U/L Normal <34 [facility] Comment on above: Performed By: #### L AB17, [id number] ####Release Manager: KEMAR ABEBE ([id number])[facility] (SBHLAB)[address] Bilirubin [Mass/Vol] 0.3 mg/dL Normal <1.[address] [facility] Comment on above: Performed By: #### L AB17, [id number] ####Release Manager: KEMAR ABEBE ([id number])[facility] [place] ([facility])[address] [place] [address] [place] Calcium [Mass/Vol] 8.7 mg/dL Normal 8.4-10.2 [facility] Comment on above: Performed By: #### L AB17, [id number] ####Release Manager: KEMAR ABEBE ([id number])[facility] (SBHLAB)[address] Chloride [Moles/Vol] 101 mmol/L Normal 98-[address] [facility] Comment on above: Performed By: #### L AB17, [id number] ####Release Manager: KEMAR ABEBE ([id number])[facility]ENTER[facility] (SBHLAB)[address] CO2 [Moles/Vol] 29 mmol/L Normal 22-29 [facility] Comment on above: Performed By: #### L AB17, [id number] ####Release Manager: KEMAR ABEBE ([id number])[facility] (SBHLAB)[address] Creatinine [Mass/Vol] 0.84 mg/dL Normal [facility] Comment on above: Performed By: #### L AB17, [id number] ####Release Manager: KEMAR ABEBE ([id number])[facility] (SBHLAB)[address] GLOMERULAR FILTRATION RATE ML/MIN/1.73 SQ M.PREDICTED 81.2 mL/min/1.73m*2 Normal >60.0 [facility] Comment on above: Result Comment: Calc ulation based on the Chronic Kidney Disease Epidemiology Collaboration (CKD-EPI) equation refit without adjustment for race Performed By: #### L AB17, [id number] ####Release Manager: KEMAR ABEBE ([id number])[facility]ENTERWar[facility] (SBHLAB)[address] [place] [address] [place] Glucose [Mass/Vol] 214 mg/dL High 74-100 [facility] Comment on above: Performed By: #### L AB17, [id number] ####Release Manager: KEMAR ABEBE ([id number])[facility] (SBHLAB)[address] Potassium [Moles/Vol] 3.4 mmol/L Low 3.5-5.1 [facility] Comment on above: Result Comment: [facility] potassium values may be up to 0.5 mmol/L lower than serum values. Performed By: #### L AB17, [id number] ####Release Manager: KEMAR ANDRAE ([id number])[facility]ENTER[facility] (SBHLAB)[address] Protein [Mass/Vol] 6.1 g/dL Low 6.4-8.3 [facility] Comment on above: Performed By: #### L AB17, [id number] ####Release Manager: KEMAR MOMINHARRISON ([id number])[facility]ENTER[facility] (SBHLAB)[address] Sodium [Moles/Vol] 137 mmol/L Normal 136-145 [facility] Comment on above: Performed By: #### L AB17, [id number] ####Release Manager: KMEAR MOMINHARRISON ([id number])[facility]ENTER[facility] (SBHLAB)[address] Urea nitrogen [Mass/Vol] 21 mg/dL Normal 9-23 [facility] Comment on above: Performed By: #### L AB17, [id number] ####Release Manager: KEMAR ANDRAE ([id number])[facility] (SBHLAB)[address] Comprehensive metabolic 1998 panelon 10-23-2024 Albumin [Mass/Vol] 2.6 g/dL Low 3.5 - 5.0 g/dL [facility] ALP [Catalytic activity/Vol] 115 U/L [facility] ALT [Catalytic activity/Vol] 27 U/L [facility] Anion gap [Moles/Vol] 7 mmol/L 3 - 13 mmol/L [facility] AST [Catalytic activity/Vol] 18 U/L NINF - 34 U/L [facility] Bilirubin [Mass/Vol] 0.3 mg/dL NINF - 1.2 mg/dL [facility] Calcium [Mass/Vol] 8.7 mg/dL 8.4 - 10. 2 mg/dL [facility] Chloride [Moles/Vol] 101 mmol/L 98 - 10 7 mmol/L [facility] CO2 [Moles/Vol] 29 mmol/L 22 - 29 mmol/L [facility] Creatinine [Mass/Vol] 0.84 mg/dL [facility] GFR/1.73 sq M.predicted (S/P/Bld) [Vol rate/Area] 81.2 mL/min - PINF [facility] Comment on above: Calculation based on the Chronic Kidney Disease Epidemiology Collaboration (CKD-EPI) equation refit without adjustment for race Glucose [Mass/Vol] 214 mg/dL High 74 - 100 mg/dL [facility] Interpretation and review of laboratory results Abnormal [facility] Potassium [Moles/Vol] 3.4 mmol/L Low 3.5 - 5.1 mmol/L [facility] Comment on above: Plasma potassium helen ues may be up to 0.5 mmol/L lower than serum values. Protein [Mass/Vol] 6.1 g/dL Low 6.4 - 8.3 g/dL [facility] Sodium [Moles/Vol] 137 mmol/L 136 - 145 mmol/L [facility] Urea nitrogen [Mass/Vol] 21 mg/dL 9 - 23 mg/dL [facility] Laboratory - Chemistry and C hemistry - challengeon 10-23-2024 Glucose [Mass/Vol] 309 mg/dL High 70 - 100 mg/dL [facility] Glucose [Mass/Vol] 296 mg/dL High 70 - 100 mg/dL [facility] Glucose [Mass/Vol] 240 mg/dL High 70 - 100 mg/dL [facility] Magnesium [Mass/Vol] 1.9 mg/dL 1.6 - 2 .6 mg/dL [facility] MAGNESIUMon 10-23-2024 Magnesium [Mass/Vol] 1.9 mg/dL Normal 1.6-2.6 [facility] Comment on above: Result Comment: MARIE Doshi COMMENTS:Higher values can be expected in females during menses. Performed By: #### L AB17, [id number] ####Release Manager: KEMAR ABEBE ([id number])[facility] (SBHLAB)[address] [place] [address] Magnesium [Mass/Vol]on 10-23 Interpretation and review of laboratory results Normal [facility] Higher values can be expected in females during menses. [facility] No Panel Informationon 10-23 Interpretation and review of laboratory results Abnormal [facility] Performed by: [facility], [address] [facility] [address] CLIA ID: [id number] [facility] Interpretation and review of laboratory results Abnormal [facility] Performed by: [facility], [address] [facility], [facility] [address] CLIA ID: [id number] [facility] Interpretation and review of laboratory results Abnormal [facility] Performed by: [facility], [address] [facility], [facility] [address] CLIA ID: [id number] [facility] Nursing Noteon 10-23-2024 Nursing Note Report called to Cassy kelley RN at [facility]. Normal [facility] Progress Noteon 10-23-2024 Progress Note Normal [facility] Progress Note Normal [facility] Progress Note Normal [facility] 30on 10-22-2024 30 Normal [facility] 30 Normal [facility] Bacteria identified Aer cx N om (Unsp spec)Ordered By: Timi Ryder on 10-22-2024 Gram Stain Result Few Polymorphonuclea r leukocytes per low power field [facility] Gram Stain Result No organisms seen [facility] CBC W Auto Differential pane l (Bld)on 10-22-2024 Basophils (Bld) [#/Vol] 0.1 10*3/uL 0.0 - 0.2 10*3/uL [facility] Basophils/100 WBC (Bld) 0.5 % 0.0 - 2.0 % [facility] Eosinophils (Bld) [#/Vol] 0.2 10*3/uL 0.0 - 0.5 10*3/uL [facility] Eosinophils/100 WBC (Bld) 1.7 % 0.0 - 6.0 % [facility] Erythrocyte distribution width (RBC) [Ratio] 13.5 % 11.5 - 15.0 % [facility] Hematocrit (Bld) [Volume fraction] 30 % Male: 40.0-52.0 ; Female: 35.0-47.[address] [facility] Hemoglobin (Bld) [Mass/Vol] 9.7 g/dL Low 11.7 - 18.0 g/dL [facility] Immature granulocytes (Bld) [#/Vol] 0.1 10*3/uL High NINF - 0.1 10*3/uL [facility] Immature granulocytes/100 WBC (Bld) 1.1 % 0.0 - 2.0 % [facility] Interpretation and review of laboratory results Abnormal [facility] Lymphocytes (Bld) [#/Vol] 1.6 10*3/uL 1.0 - 4.3 10*3/uL [facility] Lymphocytes/100 WBC (Bld) 15.9 % 15.0 - 45.0 % [facility] MCH (RBC) [Entitic mass] 27.2 pg 26.0 - 34.[address] [facility] MCHC (RBC) [Mass/Vol] 32.3 % 30.5 - 36.0 % [facility] MCV (RBC) [Entitic vol] 84.3 fL 77.0 - 99.[address] [facility] Monocytes (Bld) [#/Vol] 0.8 10*3/uL 0.0 - 0.9 10*3/uL [facility] Monocytes/100 WBC (Bld) 8.2 % 5.0 - 13.0 % [facility] Neutrophils (Bld) [#/Vol] 7.1 10*3/uL 1.8 - 7.5 10*3/uL [facility] Neutrophils/100 WBC (Bld) 72.6 % 38.0 - 82.0 % [facility] Nucleated RBC/100 WBC (Bld) [Ratio] 0 % [facility] Platelet mean volume (Bld) [Entitic vol] 9.5 fL 9.0 - 12.[address] [facility] Platelets (Bld) [#/Vol] 419 10*3/uL 140 - 440 10*3/uL [facility] RBC (Bld) [#/Vol] 3.56 10*6/uL Male: 4.40-5.90; Female: 3.80-5.[address] [facility] WBC (Bld) [#/Vol] 9.7 10*3/uL 3.6 - 10.7 10*3/uL [facility] CBC WITH AUTO DIFFERENTIALon 10-22-2024 Basophils (Bld) [#/Vol] 0.1 10*3/uL Normal 0.0-0.[address] [facility] Comment on above: Performed By: #### L [id number] ####Release Manager: KEMAR BANUELOSCER ([id number])[facility] (SBHLAB)[address] Basophils/100 WBC (Bld) 0.5 % Normal 0.0-2.0 [facility] Comment on above: Performed By: #### L [id number] ####Release Manager: KEMAR LUDWIGSAAD ([id number])[facility] (SBHLAB)[address] Eosinophils (Bld) [#/Vol] 0.2 10*3/uL Normal 0.0-0.5 [facility] Comment on above: Performed By: #### L [id number] ####Release Manager: KEMAR MOMINHARRISON ([id number])[facility] (SBHLAB)[address] [place] [address] Eosinophils/100 WBC (Bld) 1.7 % Normal 0.0-6.0 [facility] Comment on above: Performed By: #### L [id number] ####Release Manager: KEMAR LUDWIGSAAD ([id number])[facility] [place] ([facility])[address] [place] [address] Erythrocyte distribution width (RBC) [Ratio] 13.5 % Normal 11.5-15.0 [facility] Comment on above: Performed By: #### L [id number] ####Release Manager: KEMAR LUDWIGSAAD ([id number])[facility] [place] ([facility])[address] [place] [address] Hematocrit (Bld) [Volume fraction] 30.0 % Normal Male: 40.0-52.0 ; Female: 35.0-47.0 [facility] Comment on above: Performed By: #### L [id number] ####Release Manager: KEMAR LUDWIGSAAD ([id number])[facility] [place] ([facility])[address] Hemoglobin (Bld) [Mass/Vol] 9.7 g/dL Low 11.7-18.0 [facility] Comment on above: Performed By: #### L [id number] ####Release Manager: KEMAR ABEBE ([id number])[facility] (SBHLAB)[address] IMMATURE GRANS % 1.1 % Normal 0.0-2.0 [facility] Comment on above: Performed By: #### L [id number] ####Release Manager: KEMAR ABEBE ([id number])[facility]A [facility] (SBHLAB)[address] IMMATURE GRANS ABSOLUTE 0.1 10*3/uL High <0.1 [facility] Comment on above: Performed By: #### L [id number] ####Release Manager: KEMAR ABEBE ([id number])[facility] (SBHLAB)[address] [place] [address] Lymphocytes (Bld) [#/Vol] 1.6 10*3/uL Normal 1.0-4.3 [facility] Comment on above: Performed By: #### L [id number] ####Release Manager: KEMAR ABEBE ([id number])[facility] (SBAB)[address] Lymphocytes/100 WBC (Bld) 15.9 % Normal 15.0-45.0 [facility] Comment on above: Performed By: #### L [id number] ####Release Manager: KEMAR ABEBE ([id number])[facility] ([facility])[address] MCH (RBC) [Entitic mass] 27.2 pg Normal 26.0-34.0 [facility] Comment on above: Performed By: #### L [id number] ####Release Manager: KEMAR ABEBE ([id number])[facility] ([facility])[address] [place] [address] MCHC 32.3 % Normal 30.5-36.0 [facility] Comment on above: Performed By: #### L [id number] ####Release Manager: KEMAR ABEBE ([id number])[facility] (SBHLAB)[address] MCV (RBC) [Entitic vol] 84.3 fL Normal 77.0-99.0 [facility] Comment on above: Performed By: #### L [id number] ####Release Manager: KEMAR ABEBE ([id number])[facility] (SBHLAB)[address] Monocytes (Bld) [#/Vol] 0.8 10*3/uL Normal 0.0-0.9 [facility] Comment on above: Performed By: #### L [id number] ####Release Manager: KEMAR ABEBE ([id number])[facility] [place] ([facility])[address] Monocytes/100 WBC (Bld) 8.2 % Normal 5.0-13.0 [facility] Comment on above: Performed By: #### L [id number] ####Release Manager: KEMAR LUDWIGSAAD ([id number])[facility] [place] ([facility])[address] NEUTROPHILS ABSOLUTE 7.1 10*3/uL Normal 1.8-7.5 [facility] Comment on above: Performed By: #### L [id number] ####Release Manager: KEMAR ABEBE ([phone])[facility] [place] ([facility])[address] Neutrophils/100 WBC (Bld) 72.6 % Normal 38.0-82.0 [facility] Comment on above: Performed By: #### L [id number] ####Release Manager: KEMAR ABEBE ([id number])[facility] [place] ([facility])[address] NRBC 0.0 /100 WBCs Normal 0.0-2.0 [facility] Comment on above: Performed By: #### L [id number] ####Release Manager: KEMAR ABEBE ([id number])[facility]ENTERWarren KASPEREmmie (SBHLAB)[address] Platelet mean volume (Bld) [Entitic vol] 9.5 fL Normal 9.0-12.7 [facility] Comment on above: Performed By: #### L [id number] ####Release Manager: KEMAR ABEBE ([id number])[facility]ENTERWarren [facility]EF[facility]mm[facility] (SBHLAB)[address] Platelets (Bld) [#/Vol] 419 10*3/uL Normal 140-440 [facility] Comment on above: Performed By: #### L [id number] ####Release Manager: KEMAR ABEBE ([id number])[facility]ENTERWar[facility] (SBHLAB)[address] RBC (Bld) [#/Vol] 3.56 10*6/uL Normal Male: 4.40-5.90; Female: 3.80-5.20 [facility] Comment on above: Performed By: #### L [id number] ####Release Manager: KEMAR ABEBE ([id number])[facility]ENTERWar[facility] (SBHLAB)[address] [place] [address] WBC (Bld) [#/Vol] 9.7 10*3/uL Normal 3.6-10.7 [facility] Comment on above: Performed By: #### L [id number] ####Release Manager: KEMAR ABEBE ([id number])[facility]ENTER[facility] (SBHLAB)[address] COMPREHENSIVE METABOLIC PANE Gigi 10-22-2024 Albumin [Mass/Vol] 2.7 g/dL Low 3.5-5.0 [facility] Comment on above: Performed By: #### L AB17, [id number] ####Release Manager: KEMAR ABEBE ([id number])[facility] CENTERWarren WADEFORT [facility] INDI[facility] HOSPITALEmmie (SBHLAB)[address] ALP [Catalytic activity/Vol] 127 U/L Normal [facility] Comment on above: Performed By: #### L AB17, [id number] ####Release Manager: KEMAR ABEBE ([id number])[facility]ENTERWarren KASPERN (SBHLAB)[address] ALT [Catalytic activity/Vol] 32 U/L Normal [facility] Comment on above: Performed By: #### L AB17, [id number] ####Release Manager: KEMAR ABEBE ([id number])[facility]ENTERA SHERIFORT [facility] INDI[facility] HOSPITALN (SBHLAB)[address] Anion gap [Moles/Vol] 11 mmol/L Normal 3-13 [facility] Comment on above: Performed By: #### L AB17, [id number] ####Release Manager: KEMAR ABEBE ([id number])[facility]ENTERWarren KASPERN (SBHLAB)[address] AST [Catalytic activity/Vol] 19 U/L Normal <34 [facility] [facility] Comment on above: Performed By: #### L AB17, [id number] ####Release Manager: KEMAR ABEBE ([id number])[facility] [place] (SB[facility]AB)[address] Bilirubin [Mass/Vol] 0.3 mg/dL Normal <1.2 [facility] Comment on above: Performed By: #### L AB17, [id number] ####Release Manager: KEMAR ABEBE ([id number])[facility] (SB[facility]AB)[address] Calcium [Mass/Vol] 8.7 mg/dL Normal 8.4-10.2 [facility] Comment on above: Performed By: #### L AB17, [id number] ####Release Manager: KEMAR ABEBE ([id number])[facility] (SBHLAB)[address] Chloride [Moles/Vol] 104 mmol/L Normal 98-107 [facility] Comment on above: Performed By: #### L AB17, [id number] ####Release Manager: KEMAR ABEBE ([id number])[facility] (SBHLAB)[address] CO2 [Moles/Vol] 24 mmol/L Normal 22-29 [facility] Comment on above: Performed By: #### L AB17, [id number] ####Release Manager: KEMAR ABEBE ([id number])[facility] (SBHLAB)[address] Creatinine [Mass/Vol] 1.05 mg/dL Normal [facility] Comment on above: Performed By: #### L AB17, [id number] ####Release Manager: KEMAR ABEBE ([phone])[facility] (HLAB)[address] GLOMERULAR FILTRATION RATE ML/MIN/1.73 SQ M.PREDICTED 62.1 mL/min/1.73m*2 Normal >60.0 [facility] Comment on above: Result Comment: Calc ulation based on the Chronic Kidney Disease Epidemiology Collaboration (CKD-EPI) equation refit without adjustment for race Performed By: #### L AB17, [id number] ####Release Manager: KEMAR ABEBE ([id number])[facility] (HLAB)[address] Glucose [Mass/Vol] 148 mg/dL High 74-100 [facility] Comment on above: Performed By: #### L AB17, [id number] ####Release Manager: KEMAR ABEBE ([id number])[facility] (SBHLAB)155 [place] [address] [place] Potassium [Moles/Vol] 3.3 mmol/L Low 3.5-5.1 [facility] Comment on above: Result Comment: [facility] potassium values may be up to 0.5 mmol/L lower than serum values. Performed By: #### L AB17, [id number] ####Release Manager: KEMAR ABEBE ([id number])[facility] (SBHLAB)[address] Protein [Mass/Vol] 6.4 g/dL Normal 6.4-8.3 [facility] Comment on above: Performed By: #### L AB17, [id number] ####Release Manager: KEMAR MOMINHARRISON ([id number])[facility] (SBHLAB)[address] Sodium [Moles/Vol] 139 mmol/L Normal 136-145 [facility] Comment on above: Performed By: #### L AB17, [id number] ####Release Manager: KEMAR MOMINHARRISON ([id number])[facility] (SBHLAB)[address] Urea nitrogen [Mass/Vol] 35 mg/dL High 9-23 [facility] Comment on above: Performed By: #### L AB17, [id number] ####Release Manager: KEMAR MOMINHARRISON ([id number])[facility] (SBHLAB)[address] Comprehensive metabolic 1998 panelon 10-22-2024 Albumin [Mass/Vol] 2.7 g/dL Low 3.5 - 5.0 g/dL [facility] ALP [Catalytic activity/Vol] 127 U/L [facility] ALT [Catalytic activity/Vol] 32 U/L [facility] Anion gap [Moles/Vol] 11 mmol/L 3 - 13 mmol/L [facility] AST [Catalytic activity/Vol] 19 U/L [facility] - 34 U/L [facility] Bilirubin [Mass/Vol] 0.3 mg/[facility]/dL [facility] Calcium [Mass/Vol] 8.7 mg/dL 8.4 - 10. 2 mg/dL [facility] Chloride [Moles/Vol] 104 mmol/L 98 - 10 7 mmol/L [facility] CO2 [Moles/Vol] 24 mmol/L 22 - 29 mmol/L [facility] Creatinine [Mass/Vol] 1.05 mg/dL [facility] GFR/1.73 sq M.predicted (S/P/Bld) [Vol rate/Area] 62.1 mL/min - PINF [facility] Comment on above: Calculation based on the Chronic Kidney Disease Epidemiology Collaboration (CKD-EPI) equation refit without adjustment for race Glucose [Mass/Vol] 148 mg/dL High 74 - 100 mg/dL [facility] Interpretation and review of laboratory results Abnormal [facility] Potassium [Moles/Vol] 3.3 mmol/L Low 3.5 - 5.1 mmol/L [facility] Comment on above: Plasma potassium helen ues may be up to 0.5 mmol/L lower than serum values. Protein [Mass/Vol] 6.4 g/dL 6.4 - 8.3 g/dL [facility] Sodium [Moles/Vol] 139 mmol/L 136 - 145 mmol/L [facility] Urea nitrogen [Mass/Vol] 35 mg/dL High 9 - 23 mg/dL [facility] Laboratory - Chemistry and C hemistry - challengeon 10-22-2024 Glucose [Mass/Vol] 312 mg/dL High 70 - 100 mg/dL [facility] Glucose [Mass/Vol] 283 mg/dL High 70 - 100 mg/dL [facility] Glucose [Mass/Vol] 295 mg/dL High 70 - 100 mg/dL [facility] Glucose [Mass/Vol] 258 mg/dL High 70 - 100 mg/dL [facility] Glucose [Mass/Vol] 210 mg/dL High 70 - 100 mg/dL [facility] Magnesium [Mass/Vol] 2 mg/dL 1.6 - 2 .6 mg/dL [facility] Laboratory - Microbiology an d Antimicrobial susceptibilityOrdered By: Timi Ryder on 10-22-2024 Bacteria identified Aer cx Nom (Unsp spec) No growth at [address] [facility] MAGNESIUMon 10-22-2024 Magnesium [Mass/Vol] 2.0 mg/dL Normal 1.6-2.6 [facility] Comment on above: Result Comment: MARIE Doshi COMMENTS:Higher values can be expected in females during menses. Performed By: #### L AB17, [id number] ####Release Manager: KEMAR ABEBE ([id number])[facility] ([facility] [place] [address] Magnesium [Mass/Vol]on 10-22 Interpretation and review of laboratory results Normal [facility] Higher values can be expected in females during menses. [facility] No Panel Informationon 10-22 Interpretation and review of laboratory results Abnormal [facility] Performed by: [facility], [address], [facility] [address] CLIA ID: [id number] [facility] Interpretation and review of laboratory results Abnormal [facility] Performed by: [facility], [address], [facility] [address] CLIA ID: [id number] [facility] Interpretation and review of laboratory results Abnormal [facility] Performed by: [facility], [address], [facility] [address] CLIA ID: [id number] [facility] Interpretation and review of laboratory results Abnormal [facility] Performed by: L[facility], [address], [facility] [address] CLIA ID: [id number] [facility] Progress Noteon 10-22-2024 Progress Note Normal [facility] Progress Note Normal [facility] [id number] 10-21-2024 [id number] Normal [facility] CBC W Auto Differential pane l (Bld)on 10-21-2024 Basophils (Bld) [#/Vol] 0.1 10*3/uL 0.0 - 0.2 10*3/uL [facility] Basophils/100 WBC (Bld) 0.6 % 0.0 - 2.0 % [facility] Eosinophils (Bld) [#/Vol] 0.2 10*3/uL 0.0 - 0.5 10*3/uL [facility] Eosinophils/100 WBC (Bld) 1.6 % 0.0 - 6.0 % [facility] Erythrocyte distribution width (RBC) [Ratio] 13.4 % 11.5 - 15.0 % [facility] Hematocrit (Bld) [Volume fraction] 31.6 % Male: 40.0-52.0 ; Female: 35.0-47.[address] [facility] Hemoglobin (Bld) [Mass/Vol] 10.2 g/dL Low 11.7 - 18.0 g/dL [facility] Immature granulocytes (Bld) [#/Vol] 0.1 10*3/uL High NINF - 0.1 10*3/uL [facility] Immature granulocytes/100 WBC (Bld) 0.8 % 0.0 - 2.0 % [facility] Interpretation and review of laboratory results Abnormal [facility] Lymphocytes (Bld) [#/Vol] 1.8 10*3/uL 1.0 - 4.3 10*3/uL [facility] Lymphocytes/100 WBC (Bld) 15.3 % 15.0 - 45.0 % [facility] MCH (RBC) [Entitic mass] 27.3 pg 26.0 - 34.[address] [facility] MCHC (RBC) [Mass/Vol] 32.3 % 30.5 - 36.0 % [facility] MCV (RBC) [Entitic vol] 84.7 fL 77.0 - 99.[address] [facility] Monocytes (Bld) [#/Vol] 0.8 10*3/uL 0.0 - 0.9 10*3/uL [facility] Monocytes/100 WBC (Bld) 6.8 % 5.0 - 13.0 % [facility] Neutrophils (Bld) [#/Vol] 8.9 10*3/uL High 1.8 - 7.5 10*3/uL [facility] Neutrophils/100 WBC (Bld) 74.9 % 38.0 - 82.0 % [facility] Nucleated RBC/100 WBC (Bld) [Ratio] 0 % [facility] Platelet mean volume (Bld) [Entitic vol] 9.7 fL 9.0 - 12.[address] [facility] Platelets (Bld) [#/Vol] 396 10*3/uL 140 - 440 10*3/uL [facility] RBC (Bld) [#/Vol] 3.73 10*6/uL Male: 4.40-5.90; Female: 3.80-5.[address] [facility] WBC (Bld) [#/Vol] 11.9 10*3/uL High 3.6 - 10.7 10*3/uL [facility] CBC WITH AUTO DIFFERENTIALon 10-21-2024 Basophils (Bld) [#/Vol] 0.1 10*3/uL Normal 0.0-0.[address] [facility] Comment on above: Performed By: #### L [id number] ####Release Manager: KEMAR ABEBE ([id number])[facility] (SBHLAB)[address] Basophils/100 WBC (Bld) 0.6 % Normal 0.0-2.0 [facility] Comment on above: Performed By: #### L [id number] ####Release Manager: KEMAR ABEBE ([id number])[facility] (SBHLAB)[address] Eosinophils (Bld) [#/Vol] 0.2 10*3/uL Normal 0.0-0.5 [facility] Comment on above: Performed By: #### L [id number] ####Release Manager: KEMAR ABEBE ([id number])[facility] [place] ([facility])[address] Eosinophils/100 WBC (Bld) 1.6 % Normal 0.0-6.0 [facility] Comment on above: Performed By: #### L [id number] ####Release Manager: KEMAR ABEBE ([id number])[facility] [place] (SB[facility]AB)[address] [place] [address] Erythrocyte distribution width (RBC) [Ratio] 13.4 % Normal 11.5-15.0 [facility] Comment on above: Performed By: #### L [id number] ####Release Manager: KEMAR ABEBE ([id number])[facility] (SBHLAB)[address] [place] [address] Hematocrit (Bld) [Volume fraction] 31.6 % Normal Male: 40.0-52.0 ; Female: 35.0-47.0 [facility] Comment on above: Performed By: #### L [id number] ####Release Manager: KEMAR ABEBE ([id number])[facility] [place] (SB[facility])[address] Hemoglobin (Bld) [Mass/Vol] 10.2 g/dL Low 11.7-18.0 [facility] Comment on above: Performed By: #### L [id number] ####Release Manager: KEMAR ABEBE ([id number])[facility] (SB[facility]AB)[address] IMMATURE GRANS % 0.8 % Normal 0.0-2.0 [facility] Comment on above: Performed By: #### L [id number] ####Release Manager: KEMAR ABEBE ([id number])[facility] [place] (SB[facility])[address] IMMATURE GRANS ABSOLUTE 0.1 10*3/uL High <0.1 [facility] Comment on above: Performed By: #### L [id number] ####Release Manager: KEMAR ABEBE ([id number])[facility] (SB[facility]AB)[address] Lymphocytes (Bld) [#/Vol] 1.8 10*3/uL Normal 1.0-4.3 [facility] Comment on above: Performed By: #### L [id number] ####Release Manager: KEMAR ABEBE ([id number])[facility] [place] (SB[facility])[address] Lymphocytes/100 WBC (Bld) 15.3 % Normal 15.0-45.0 [facility] Comment on above: Performed By: #### L [id number] ####Release Manager: KEMAR ABEBE ([id number])[facility] (SB[facility]AB)[address] MCH (RBC) [Entitic mass] 27.3 pg Normal 26.0-34.0 [facility] Comment on above: Performed By: #### L [id number] ####Release Manager: KEMAR ABEBE ([id number])[facility] [place] (SB[facility])[address] MCHC 32.3 % Normal 30.5-36.0 [facility] Comment on above: Performed By: #### L [id number] ####Release Manager: KEMAR ABEBE ([id number])[facility] (SBHLAB)[address] MCV (RBC) [Entitic vol] 84.7 fL Normal 77.0-99.0 [facility] Comment on above: Performed By: #### L [id number] ####Release Manager: KEMAR ABEBE ([id number])[facility] (SBHLAB)[address] Monocytes (Bld) [#/Vol] 0.8 10*3/uL Normal 0.0-0.9 [facility] Comment on above: Performed By: #### L [id number] ####Release Manager: KEMAR ABEBE ([id number])[facility] (SBHLAB)[address] Monocytes/100 WBC (Bld) 6.8 % Normal 5.0-13.0 [facility] Comment on above: Performed By: #### L [id number] ####Release Manager: KEMAR ABEBE ([id number])[facility] (SBHLAB)[address] NEUTROPHILS ABSOLUTE 8.9 10*3/uL High 1.8-7.5 [facility] Comment on above: Performed By: #### L [id number] ####Release Manager: KEMAR ABEBE ([id number])[facility] (SBHLAB)[address] Neutrophils/100 WBC (Bld) 74.9 % Normal 38.0-82.0 [facility] Comment on above: Performed By: #### L [id number] ####Release Manager: KEMAR ABEBE ([id number])[facility] (SBHLAB)[address] [place] [address] [place] NRBC 0.0 /100 WBCs Normal 0.0-2.0 [facility] Comment on above: Performed By: #### L [id number] ####Release Manager: KEMAR ABEBE ([id number])[facility] (SBHLAB)[address] Platelet mean volume (Bld) [Entitic vol] 9.7 fL Normal 9.0-12.7 [facility] Comment on above: Performed By: #### L [id number] ####Release Manager: KEMAR ABEBE ([id number])[facility] (SBHLAB)[address] Platelets (Bld) [#/Vol] 396 10*3/uL Normal 140-440 [facility] Comment on above: Performed By: #### L [id number] ####Release Manager: KEMAR ABEBE ([id number])[facility] (SBHLAB)[address] RBC (Bld) [#/Vol] 3.73 10*6/uL Normal Male: 4.40-5.90; Female: 3.80-5.20 [facility] Comment on above: Performed By: #### L [id number] ####Release Manager: KEMAR ABEBE ([id number])[facility] (SBHLAB)[address] [place] [address] WBC (Bld) [#/Vol] 11.9 10*3/uL High 3.6-10.7 [facility] Comment on above: Performed By: #### L [id number] ####Release Manager: KEMAR ABEBE ([id number])[facility] (SBHLAB)[address] COMPREHENSIVE METABOLIC PANE Gigi 10-21-2024 Albumin [Mass/Vol] 2.7 g/dL Low 3.5-5.0 [facility] Comment on above: Performed By: #### L AB17, [id number] ####Release Manager: KEMAR ABEBE ([id number])[facility] (SBHLAB)[address] ALP [Catalytic activity/Vol] 135 U/L Normal [facility] Comment on above: Performed By: #### L AB17, [id number] ####Release Manager: KEMAR ABEBE ([id number])[facility] (SB[facility]AB)[address] ALT [Catalytic activity/Vol] 42 U/L Normal [facility] Comment on above: Performed By: #### L AB17, [id number] ####Release Manager: KEMAR BAEBE ([id number])[facility] [place] (SB[facility])[address] Anion gap [Moles/Vol] 12 mmol/L Normal 3-13 [facility] Comment on above: Performed By: #### L AB17, [id number] ####Release Manager: KEMAR ABEBE ([id number])[facility] (SBHLAB)[address] AST [Catalytic activity/Vol] 20 U/L Normal <34 [facility] Comment on above: Performed By: #### L AB17, [id number] ####Release Manager: KEMAR ABEBE ([id number])[facility] [place] ([facility])[address] Bilirubin [Mass/Vol] 0.3 mg/dL Normal <1.[address] [facility] Comment on above: Performed By: #### L AB17, [id number] ####Release Manager: KEMAR ABEBE ([id number])[facility] [place] ([facility])[address] Calcium [Mass/Vol] 8.8 mg/dL Normal 8.4-10.2 [facility] Comment on above: Performed By: #### L AB17, [id number] ####Release Manager: KEMAR ABEBE ([id number])[facility] [place] ([facility])[address] [place] [address] [place] Chloride [Moles/Vol] 100 mmol/L Normal 98-[address] [facility] Comment on above: Performed By: #### L AB17, [id number] ####Release Manager: KEMAR ABEBE ([id number])[facility] [place] ([facility])[address] CO2 [Moles/Vol] 23 mmol/L Normal 22-29 [facility] Comment on above: Performed By: #### L AB17, [id number] ####Release Manager: KEMAR ABEBE ([id number])[facility] (SBHLAB)[address] Creatinine [Mass/Vol] 1.35 mg/dL Normal [facility] Comment on above: Performed By: #### L AB17, [id number] ####Release Manager: KEMAR ABEBE ([id number])[facility] BARBF[facility] (SBHLAB)[address] GLOMERULAR FILTRATION RATE ML/MIN/1.73 SQ M.PREDICTED 45.9 mL/min/1.73m*2 Low >60.0 [facility] Comment on above: Result Comment: Calc ulation based on the Chronic Kidney Disease Epidemiology Collaboration (CKD-EPI) equation refit without adjustment for race Performed By: #### L AB17, [id number] ####Release Manager: KEMAR ABEBE ([id number])[facility] (SBHLAB)[address] Glucose [Mass/Vol] 112 mg/dL High 74-100 [facility] Comment on above: Performed By: #### L AB17, [id number] ####Release Manager: KEMAR ABEBE ([id number])[facility]BF[facility] (SBHLAB)[address] [place] [address] [place] Potassium [Moles/Vol] 3.3 mmol/L Low 3.5-5.1 [facility] Comment on above: Result Comment: [facility] potassium values may be up to 0.5 mmol/L lower than serum values. Performed By: #### L AB17, [id number] ####Release Manager: KEMAR ABEBE ([id number])[facility] ([facility]AB)[address] Protein [Mass/Vol] 6.6 g/dL Normal 6.4-8.3 [facility] Comment on above: Performed By: #### L AB17, [id number] ####Release Manager: KEMAR BANUELOSCER ([id number])[facility] (SBHLAB)[address] Sodium [Moles/Vol] 135 mmol/L Low 136-145 [facility] Comment on above: Performed By: #### L AB17, [id number] ####Release Manager: KEMAR MOMINHARRISON ([id number])[facility] (SBHLAB)[address] Urea nitrogen [Mass/Vol] 48 mg/dL High 9-23 [facility] Comment on above: Performed By: #### L AB17, [id number] ####Release Manager: KEMAR MOMINHARRISON ([id number])[facility] (SBHLAB)[address] Comprehensive metabolic 1998 panelon 10-21-2024 Albumin [Mass/Vol] 2.7 g/dL Low 3.5 - 5.0 g/dL [facility] ALP [Catalytic activity/Vol] 135 U/L [facility] ALT [Catalytic activity/Vol] 42 U/L [facility] Anion gap [Moles/Vol] 12 mmol/L 3 - 13 mmol/L [facility] AST [Catalytic activity/Vol] 20 U/L [facility]L [facility] Bilirubin [Mass/Vol] 0.3 mg/dL [facility] - 1.2 mg/dL [facility] Calcium [Mass/Vol] 8.8 mg/dL 8.4 - 10. 2 mg/dL [facility] Chloride [Moles/Vol] 100 mmol/L 98 - 10 7 mmol/L [facility] CO2 [Moles/Vol] 23 mmol/L 22 - 29 mmol/L [facility] Creatinine [Mass/Vol] 1.35 mg/dL [facility] GFR/1.73 sq M.predicted (S/P/Bld) [Vol rate/Area] 45.9 mL/min Low - PINF [facility] Comment on above: Calculation based on the Chronic Kidney Disease Epidemiology Collaboration (CKD-EPI) equation refit without adjustment for race Glucose [Mass/Vol] 112 mg/dL High 74 - 100 mg/dL [facility] Interpretation and review of laboratory results Abnormal [facility] Potassium [Moles/Vol] 3.3 mmol/L Low 3.5 - 5.1 mmol/L [facility] Comment on above: Plasma potassium helen ues may be up to 0.5 mmol/L lower than serum values. Protein [Mass/Vol] 6.6 g/dL 6.4 - 8.3 g/dL [facility] Sodium [Moles/Vol] 135 mmol/L Low 136 - 145 mmol/L [facility] Urea nitrogen [Mass/Vol] 48 mg/dL High 9 - 23 mg/dL [facility] Laboratory - Chemistry and C hemistry - challengeon 10-21-2024 Glucose [Mass/Vol] 151 mg/dL High 70 - 100 mg/dL [facility] Glucose [Mass/Vol] 141 mg/dL High 70 - 100 mg/dL [facility] Glucose [Mass/Vol] 161 mg/dL High 70 - 100 mg/dL [facility] Glucose [Mass/Vol] 182 mg/dL High 70 - 100 mg/dL [facility] Glucose [Mass/Vol] 185 mg/dL High 70 - 100 mg/dL [facility] Magnesium [Mass/Vol] 2 mg/dL 1.6 - 2 .6 mg/dL [facility] MAGNESIUMon 10-21-2024 Magnesium [Mass/Vol] 2.0 mg/dL Normal 1.6-2.6 [facility] Comment on above: Result Comment: MARIE Doshi COMMENTS:Higher values can be expected in females during menses. Performed By: #### L AB17, [id number] ####Release Manager: KEMAR ABEBE ([id number])[facility] (SBHLAB)[address] Magnesium [Mass/Vol]on 10-21 Interpretation and review of laboratory results Normal [facility] Higher values can be expected in females during menses. [facility] No Panel Informationon 10-21 Interpretation and review of laboratory results Abnormal [facility] Performed by: [facility], [address] [facility] [address] CLIA ID: [id number] [facility] Interpretation and review of laboratory results Abnormal [facility] Performed by: L[facility] [place] [facility], [address] [facility] [address] CLIA ID: [id number] [facility] Interpretation and review of laboratory results Abnormal [facility] Performed by: [facility] [place] [facility], [address] [facility] [address] CLIA ID: [id number] [facility] Interpretation and review of laboratory results Abnormal [facility] Performed by: L[facility]warren [facility], [address] [facility] [address] CLIA ID: [id number] [facility] Interpretation and review of laboratory results Abnormal [facility] Performed by: [facility] [place] [facility], [address] [facility] [address] CLIA ID: [id number] [facility] Progress Noteon 10-21-2024 Progress Note Normal [facility] Progress Note Normal [facility] [id number] 10-20-2024 [id number] Normal [facility] [id number] Sent updated [facility] [facility] request. Await review and response regarding ability to accept. TCC notified. Normal [facility] Bacteria identified Cx Nom ( U)Ordered By: Sagrario Clark on 10-20-2024 Interpretation and review of laboratory results Normal [facility] C-REACTIVE PROTEINon 024 CRP [Mass/Vol] 261.6 mg/L High <5.0 [facility] Comment on above: Performed By: #### L [id number], LAB17, [id number] ####Release Manager: KEMAR ABEBE ([phone])[facility]ENTER[facility] (SBHLAB)[address] CBC W Auto Differential pane l (Bld)on 10-20-2024 Basophils (Bld) [#/Vol] 0 10*3/uL 0.0 - 0.2 10*3/uL [facility] Basophils/100 WBC (Bld) 0.1 % 0.0 - 2.0 % [facility] Eosinophils (Bld) [#/Vol] 0 10*3/uL 0.0 - 0.5 10*3/uL [facility] Eosinophils/100 WBC (Bld) 0.2 % 0.0 - 6.0 % [facility] Erythrocyte distribution width (RBC) [Ratio] 13.9 % 11.5 - 15.0 % [facility] Hematocrit (Bld) [Volume fraction] 33 % Male: 40.0-52.0 ; Female: 35.0-47.[address] [facility] Hemoglobin (Bld) [Mass/Vol] 10.5 g/dL Low 11.7 - 18.0 g/dL [facility] Immature granulocytes (Bld) [#/Vol] 0.2 10*3/uL High NINF - 0.1 10*3/uL [facility] Immature granulocytes/100 WBC (Bld) 1.3 % 0.0 - 2.0 % [facility] Interpretation and review of laboratory results Abnormal [facility] Lymphocytes (Bld) [#/Vol] 1.1 10*3/uL 1.0 - 4.3 10*3/uL [facility] Lymphocytes/100 WBC (Bld) 8 % Low 15.0 - 45.0 % [facility] MCH (RBC) [Entitic mass] 27.3 pg 26.0 - 34.[address] [facility] MCHC (RBC) [Mass/Vol] 31.8 % 30.5 - 36.0 % [facility] MCV (RBC) [Entitic vol] 85.7 fL 77.0 - 99.0 fL [facility] Monocytes (Bld) [#/Vol] 0.8 10*3/uL 0.0 - 0.9 10*3/uL [facility] Monocytes/100 WBC (Bld) 5.7 % 5.0 - 13.0 % [facility] Neutrophils (Bld) [#/Vol] 11.4 10*3/uL High 1.8 - 7.5 10*3/uL [facility] Neutrophils/100 WBC (Bld) 84.7 % High 38.0 - 82.0 % [facility] Nucleated RBC/100 WBC (Bld) [Ratio] 0 % [facility] [place] Platelet mean volume (Bld) [Entitic vol] 9.9 fL 9.0 - 12.7 fL [facility] Platelets (Bld) [#/Vol] 353 10*3/uL 140 - 440 10*3/uL [facility] RBC (Bld) [#/Vol] 3.85 10*6/uL Male: 4.40-5.90; Female: 3.80-5.[address] [facility] WBC (Bld) [#/Vol] 13.4 10*3/uL High 3.6 - 10.7 10*3/uL [facility] CBC WITH AUTO DIFFERENTIALon 10-20-2024 Basophils (Bld) [#/Vol] 0.0 10*3/uL Normal 0.0-0.2 [facility] Comment on above: Performed By: #### L [id number] ####Release Manager: KEMAR ABEBE ([phone])[facility] (SBAB)[address] [place] [address] Basophils/100 WBC (Bld) 0.1 % Normal 0.0-2.0 [facility] Comment on above: Performed By: #### L [id number] ####Release Manager: KEMAR ABEBE ([id number])[facility] (SBHLAB)[address] Eosinophils (Bld) [#/Vol] 0.0 10*3/uL Normal 0.0-0.5 [facility] Comment on above: Performed By: #### L [id number] ####Release Manager: KEMAR ABEBE ([id number])[facility]ENTERA BARBFORT [facility]ITALN (SBHLAB)[address] Eosinophils/100 WBC (Bld) 0.2 % Normal 0.0-6.0 [facility] Comment on above: Performed By: #### L [id number] ####Release Manager: KEMAR ABEBE ([id number])[facility] (SBHLAB)[address] Erythrocyte distribution width (RBC) [Ratio] 13.9 % Normal 11.5-15.0 [facility] Comment on above: Performed By: #### L [id number] ####Release Manager: KEMAR BANUELOSCER ([id number])[facility] BARBFORT [facility] (SBHLAB)[address] [place] [address] Hematocrit (Bld) [Volume fraction] 33.0 % Normal Male: 40.0-52.0 ; Female: 35.0-47.0 [facility] Comment on above: Performed By: #### L [id number] ####Release Manager: KEMAR ANDRAE ([phone])[facility]BFORT [facility] ([facility])[address] [place] [address] Hemoglobin (Bld) [Mass/Vol] 10.5 g/dL Low 11.7-18.0 [facility] Comment on above: Performed By: #### L [id number] ####Release Manager: KEMAR ABEBE ([id number])[facility] [place] [address] IMMATURE GRANS % 1.3 % Normal 0.0-2.0 [facility] Comment on above: Performed By: #### L [id number] ####Release Manager: KEMAR ABEBE ([id number])[facility] ([facility])[address] [place] [address] IMMATURE GRANS ABSOLUTE 0.2 10*3/uL High <0.1 [facility] Comment on above: Performed By: #### L [id number] ####Release Manager: KEMAR LUDWIGSAAD ([id number])[facility] (SBAB)[address] [place] [address] Lymphocytes (Bld) [#/Vol] 1.1 10*3/uL Normal 1.0-4.3 [facility] Comment on above: Performed By: #### L [id number] ####Release Manager: KEMAR ANDRAE ([id number])[facility])[address] [place] [address] Lymphocytes/100 WBC (Bld) 8.0 % Low 15.0-45.0 [facility] Comment on above: Performed By: #### L [id number] ####Release Manager: KEMAR MOMINHiginioSAAD ([id number])[facility] BAR[facility]N (SBHLAB)[address] MCH (RBC) [Entitic mass] 27.3 pg Normal 26.0-34.0 [facility] Comment on above: Performed By: #### L [id number] ####Release Manager: KEMAR ANDRAE ([id number])[facility]ENTERWarren WADEFORT [facility]OSPITALN (SBHLAB)[address] MCHC 31.8 % Normal 30.5-36.0 [facility] Comment on above: Performed By: #### L [id number] ####Release Manager: KEMAR ANDRAE ([id number])[facility]ENTERWar[facility] KASPERN (SBHLAB)[address] [place] [address] MCV (RBC) [Entitic vol] 85.7 fL Normal 77.0-99.0 [facility] Comment on above: Performed By: #### L [id number] ####Release Manager: KEMAR MOMINHiginioSAAD ([id number])[facility]ENTER[facility] BARBFORT [facility]ITALN (SBHLAB)[address] [place] [address] Monocytes (Bld) [#/Vol] 0.8 10*3/uL Normal 0.0-0.9 [facility] Comment on above: Performed By: #### L [id number] ####Release Manager: KEMAR ABEBE ([id number])[facility] [place] (SBHLAB)[address] Monocytes/100 WBC (Bld) 5.7 % Normal 5.0-13.0 [facility] Comment on above: Performed By: #### L [id number] ####Release Manager: KEMAR LUDWIGSAAD ([id number])[facility] BARBFORT [facility]ITALN (SBHLAB)[address] NEUTROPHILS ABSOLUTE 11.4 10*3/uL High 1.8-7.5 [facility] Comment on above: Performed By: #### L [id number] ####Release Manager: KEMAR ABEBE ([id number])[facility] BARBMARYN (SBHLAB)[address] Neutrophils/100 WBC (Bld) 84.7 % High 38.0-82.0 [facility] Comment on above: Performed By: #### L [id number] ####Release Manager: KEMAR LUDWIGSAAD ([id number])[facility] [place] (SBHLAB)[address] NRBC 0.0 /100 WBCs Normal 0.0-2.0 [facility] Comment on above: Performed By: #### L [id number] ####Release Manager: KEMAR LUDWIGSAAD ([id number])[facility]A [place] (SBHLAB)[address] Platelet mean volume (Bld) [Entitic vol] 9.9 fL Normal 9.0-12.7 [facility] Comment on above: Performed By: #### L [id number] ####Release Manager: KEMAR LUDWIGSAAD ([id number])[facility]ENTER[facility] [place] (SBHLAB)[address] Platelets (Bld) [#/Vol] 353 10*3/uL Normal 140-440 [facility] Comment on above: Performed By: #### L [id number] ####Release Manager: KEMAR LUDWIGSAAD ([id number])[facility] [place] (SBHLAB)[address] RBC (Bld) [#/Vol] 3.85 10*6/uL Normal Male: 4.40-5.90; Female: 3.80-5.20 [facility] Comment on above: Performed By: #### L [id number] ####Release Manager: KEMAR AEBBE ([id number])[facility] [place] (SBHLAB)[address] WBC (Bld) [#/Vol] 13.4 10*3/uL High 3.6-10.7 [facility] Comment on above: Performed By: #### L [id number] ####Release Manager: KEMAR ABEBE ([id number])[facility] [place] (SBHLAB)[address] COMPREHENSIVE METABOLIC PANE Gigi 10-20-2024 Albumin [Mass/Vol] 2.8 g/dL Low 3.5-5.0 [facility] Comment on above: Performed By: #### L [id number], LAB17, DCT884 ####Release Manager: KEMAR ABEBE ([id number])[facility] [place] (SBHLAB)[address] ALP [Catalytic activity/Vol] 155 U/L Normal [facility] Comment on above: Performed By: #### L [id number], LAB17, MNS632 ####Release Manager: KEMAR ABEBE ([id number])[facility] [place] (SBHLAB)[address] ALT [Catalytic activity/Vol] 53 U/L Normal [facility] Comment on above: Performed By: #### L [id number], LAB17, [id number] ####Release Manager: KEMAR ABEBE ([id number])[facility] [place] (SBHLAB)[address] Anion gap [Moles/Vol] 14 mmol/L High 3-13 [facility] Comment on above: Performed By: #### L [id number], LAB17, IJU854 ####Release Manager: KEMAR ABEBE ([id number])[facility] [place] (SBHLAB)[address] AST [Catalytic activity/Vol] 20 U/L Normal <34 [facility] Comment on above: Performed By: #### L [id number], LAB17, BIM333 ####Release Manager: KEMAR ABEBE ([id number])[facility] [place] (SBHLAB)[address] Bilirubin [Mass/Vol] 0.5 mg/dL Normal <1.[address] [facility] Comment on above: Performed By: #### L [id number], LAB17, GHN202 ####Release Manager: KEMAR ABEBE ([id number])[facility] (HLAB)[address] Calcium [Mass/Vol] 9.0 mg/dL Normal 8.4-10.2 [facility] Comment on above: Performed By: #### Elijah [address], LAB17, EVH675 ####Release Manager: KEMAR ABEBE ([id number])[facility] (SBHLAB)[address] Chloride [Moles/Vol] 98 mmol/L Normal 98-[address] [facility] Comment on above: Performed By: #### Elijah [address], LAB17, GTQ271 ####Release Manager: KEMAR ABEBE ([id number])[facility] (SBHLAB)[address] CO2 [Moles/Vol] 21 mmol/L Low 22-29 [facility] Comment on above: Performed By: #### Elijah RODRIGUEZ, LAB17, JAH331 ####Release Manager: KEMAR ABEBE ([id number])[facility] ([facility])[address] Creatinine [Mass/Vol] 1.50 mg/dL Normal [facility] Comment on above: Performed By: #### Elijah [address], LAB17, JPX310 ####Release Manager: KEMAR ABEBE ([id number])[facility] (HLAB)[address] GLOMERULAR FILTRATION RATE ML/MIN/1.73 SQ M.PREDICTED 40.5 mL/min/1.73m*2 Low >60.0 [facility] Comment on above: Result Comment: Calc ulation based on the Chronic Kidney Disease Epidemiology Collaboration (CKD-EPI) equation refit without adjustment for race Performed By: #### L [id number], LAB17, DZC871 ####Release Manager: KEMAR ABEBE ([id number])[facility] (SBHLAB)[address] [place] [address] [place] Glucose [Mass/Vol] 461 mg/dL Critically high 74-100 [facility] Comment on above: Performed By: #### L [id number], LAB17, LBE725 ####Release Manager: KEMAR ABEBE ([id number])[facility] (SBHLAB)[address] Potassium [Moles/Vol] 3.6 mmol/L Normal 3.5-5.1 [facility] Comment on above: Result Comment: [facility] potassium values may be up to 0.5 mmol/L lower than serum values. Performed By: #### L [id number], LAB17, EMT196 ####Release Manager: KEMAR ABEBE ([id number])[facility] (SBHLAB)[address] Protein [Mass/Vol] 6.8 g/dL Normal 6.4-8.3 [facility] Comment on above: Performed By: #### L [id number], LAB17, CDM040 ####Release Manager: KEMAR ABEBE ([id number])[facility] (SBHLAB)[address] [place] [address] [place] Sodium [Moles/Vol] 133 mmol/L Low 136-145 [facility] Comment on above: Performed By: #### L [id number], LAB17, VEY406 ####Release Manager: KEMAR ABEBE ([id number])[facility] (SBHLAB)[address] [place] [address] [place] Urea nitrogen [Mass/Vol] 48 mg/dL High 9-23 [facility] Comment on above: Performed By: #### L [id number], LAB17, QUC926 ####Release Manager: KEMAR ABEBE ([id number])[facility] (SBHLAB)[address] [place] [address] [place] CRP [Mass/Vol]on 10-20-2024 Interpretation and review of laboratory results Abnormal [facility] Comprehensive metabolic 1998 panelon 10-20-2024 Albumin [Mass/Vol] 2.8 g/dL Low 3.5 - 5.0 g/dL [facility] ALP [Catalytic activity/Vol] 155 U/L [facility] ALT [Catalytic activity/Vol] 53 U/L [facility] Anion gap [Moles/Vol] 14 mmol/L High 3 - 13 mmol/L [facility] AST [Catalytic activity/Vol] 20 U/L NINF - 34 U/L [facility] Bilirubin [Mass/Vol] 0.5 mg/dL NINF - 1.2 mg/dL [facility] Calcium [Mass/Vol] 9 mg/dL 8.4 - 10. 2 mg/dL [facility] Chloride [Moles/Vol] 98 mmol/L 98 - 10 7 mmol/L [facility] CO2 [Moles/Vol] 21 mmol/L Low 22 - 29 mmol/L [facility] Creatinine [Mass/Vol] 1.5 mg/dL [facility] GFR/1.73 sq M.predicted (S/P/Bld) [Vol rate/Area] 40.5 mL/min Low - PINF [facility] Comment on above: Calculation based on the Chronic Kidney Disease Epidemiology Collaboration (CKD-EPI) equation refit without adjustment for race Glucose [Mass/Vol] 461 mg/dL Critically high 74 - 1 00 mg/dL [facility] Interpretation and review of laboratory results Abnormal [facility] Potassium [Moles/Vol] 3.6 mmol/L 3.5 - 5.1 mmol/L [facility] Comment on above: Plasma potassium helen ues may be up to 0.5 mmol/L lower than serum values. Protein [Mass/Vol] 6.8 g/dL 6.4 - 8.3 g/dL [facility] Sodium [Moles/Vol] 133 mmol/L Low 136 - 145 mmol/L [facility] Urea nitrogen [Mass/Vol] 48 mg/dL High 9 - 23 mg/dL [facility] Consulton 10-20-2024 Consult Normal [facility] IRON AND TIBCon 10-20-2024 IRON BINDING CAPACITY 187 ug/dL Low 250-450 [facility] Comment on above: Performed By: #### L [id number] ####Release Manager: KEMAR ABEBE ([id number])[facility] (SBHLAB)[address] IRON SATURATION 25.7 % Normal 20.0-50.0 [facility] Comment on above: Performed By: #### L [id number] ####Release Manager: KEMAR ABEBE ([id number])[facility] (SBHLAB)[address] IRON, TOTAL 48 ug/dL Normal [facility] Comment on above: Performed By: #### L [id number] ####Release Manager: KEMAR ABEBE ([id number])[facility] (SBHLAB)[address] Iron and Iron binding capaci ty panelon 10-20-2024 Interpretation and review of laboratory results Abnormal [facility] Iron [Mass/Vol] 48 ug/dL [facility] Iron binding capacity [Mass/Vol] 187 ug/dL Low 250 - 450 ug/dL [facility] Iron saturation [Mass fraction] 25.7 % 20.0 - 50.0 % [facility] Laboratory - Chemistry and C hemistry - challengeon 10-20-2024 Glucose [Mass/Vol] 260 mg/dL High 70 - 100 mg/dL [facility] Glucose [Mass/Vol] 373 mg/dL High 70 - 100 mg/dL [facility] Glucose [Mass/Vol] 445 mg/dL High 70 - 100 mg/dL [facility] Glucose [Mass/Vol] 445 mg/dL High 70 - 100 mg/dL [facility] Procalcitonin [Mass/Vol] 2 ng/mL High NINF - 0.07 ng/mL [facility] CRP [Mass/Vol] 261.6 mg/L High NINF - 5.0 mg/L [facility] Laboratory - Microbiology an d Antimicrobial susceptibilityOrdered By: Sagrario Clark on 10-20-2024 Bacteria identified Cx Nom (U) Insignificant growth based on current clinical guidelines [facility] No Panel Informationon 10-20 Interpretation and review of laboratory results Abnormal [facility] Performed by: [facility], [address] [place] [address] CLIA ID: [id number] [facility] Interpretation and review of laboratory results Abnormal [facility] Performed by: [facility], [address] [facility] [address] CLIA ID: [id number] [facility] Interpretation and review of laboratory results Abnormal [facility] Performed by: [facility], [address] [facility] [address] CLIA ID: [id number] [facility] Interpretation and review of laboratory results Abnormal [facility] Performed by: [facility], [address] [facility] [address] CLIA ID: [id number] [facility] Nursing Noteon 10-20-2024 Nursing Note Report called to [address] [place] [address] for transfer. Normal [facility] Nursing Note Notified Lisa guerrero APRN and Dr. Thomas regarding patients BS. New orders placed. Normal [facility] PROCALCITONIN TESTon 024 PROCALCITONIN 2.00 ng/mL High <0.07 [facility] Comment on above: Result Comment: MARIE Doshi COMMENTS:PCT <0.50 = Low risk of severe sepsis and/or septic shock.PCT >2.00 = High risk of severe sepsis and/or septic shock. Performed By: #### L [id number], LAB17, [id number] ####Release Manager: KEMAR ABEBE ([id number])[facility] YARITZA (SBHLAB)[address] [place] [address] Procalcitonin [Mass/Vol]on 12-21-2023 Interpretation and review of laboratory results Abnormal [facility] PCT <0.50 = Low risk of severe sepsis and/or septic shock. PCT >2.00 = High risk of severe sepsis and/or septic shock. [facility] Progress Noteon 10-20-2024 Progress Note Normal [facility] Progress Note Normal [facility] Progress Note Normal [facility] Progress Note Normal [facility] Progress Note Nutrition rescreen completed. Patient is NPO/Clear liquid >3 days. Refer to Dietitian. Normal [facility] 30on 10-19-2024 30 Normal [facility] [id number] 10-19-2024 [id number] Normal [facility] 36on 10-19-2024 36 Needs to be seen for follow up with any provider, will need ECF to arrange transportation so that patient can be seen in office ans no longer available to manage over the phone Normal [facility] CBC W Auto Differential pane l (Bld)on 10-19-2024 Erythrocyte distribution width (RBC) [Ratio] 14.5 % 11.5 - 15.0 % [facility] Hematocrit (Bld) [Volume fraction] 34.4 % Male: 40.0-52.0 ; Female: 35.0-47.[address] [facility] Hemoglobin (Bld) [Mass/Vol] 10.9 g/dL Low 11.7 - 18.0 g/dL [facility] MCH (RBC) [Entitic mass] 27.7 pg 26.0 - 34.[address] [facility] MCHC (RBC) [Mass/Vol] 31.7 % 30.5 - 36.0 % [facility] MCV (RBC) [Entitic vol] 87.3 fL 77.0 - 99.[address] [facility] Platelet mean volume (Bld) [Entitic vol] 9.6 fL 9.0 - 12.[address] [facility] Platelets (Bld) [#/Vol] 339 10*3/uL 140 - 440 10*3/uL [facility] RBC (Bld) [#/Vol] 3.94 10*6/uL Male: 4.40-5.90; Female: 3.80-5.[address] [facility] WBC (Bld) [#/Vol] 21.8 10*3/uL High 3.6 - 10.7 10*3/uL [facility] CBC WITH AUTO DIFFERENTIALon 10-19-2024 Erythrocyte distribution width (RBC) [Ratio] 14.5 % Normal 11.5-15.0 [facility] Comment on above: Performed By: #### L [id number], [id number] ####Release Manager: KEMAR ABEBE ([id number])[facility] YARITZA (SBHLAB)[address] Hematocrit (Bld) [Volume fraction] 34.4 % Normal Male: 40.0-52.0 ; Female: 35.0-47.0 [facility] Comment on above: Performed By: #### L [id number], [id number] ####Release Manager: KEMAR ABEBE ([id number])[facility]ENTER[facility] [place] (SBHLAB)[address] Hemoglobin (Bld) [Mass/Vol] 10.9 g/dL Low 11.7-18.0 [facility] Comment on above: Performed By: #### L [id number], [id number] ####Release Manager: KEMAR ABEBE ([id number])[facility] (SBHLAB)[address] [place] [address] MCH (RBC) [Entitic mass] 27.7 pg Normal 26.0-34.0 [facility] Comment on above: Performed By: #### L [id number], [id number] ####Release Manager: KEMAR ABEBE ([id number])[facility] (SBHLAB)[address] [place] [address] MCHC 31.7 % Normal 30.5-36.0 [facility] Comment on above: Performed By: #### L [id number], [id number] ####Release Manager: KEMAR ABEBE ([id number])[facility] (SBHLAB)[address] [place] [address] MCV (RBC) [Entitic vol] 87.3 fL Normal 77.0-99.0 [facility] Comment on above: Performed By: #### L [id number], [id number] ####Release Manager: KEMAR ABEBE ([id number])[facility] (SBHLAB)[address] Platelet mean volume (Bld) [Entitic vol] 9.6 fL Normal 9.0-12.7 [facility] Comment on above: Performed By: #### L [id number], [id number] ####Release Manager: KEMAR ABEBE ([id number])[facility] (SBHLAB)[address] Platelets (Bld) [#/Vol] 339 10*3/uL Normal 140-440 [facility] Comment on above: Performed By: #### L [id number], [id number] ####Release Manager: KEMAR ABEBE ([id number])[facility] (SBHLAB)[address] RBC (Bld) [#/Vol] 3.94 10*6/uL Normal Male: 4.40-5.90; Female: 3.80-5.20 [facility] Comment on above: Performed By: #### L [id number], [id number] ####Release Manager: KEMAR ABEBE ([id number])[facility] (SBHLAB)[address] WBC (Bld) [#/Vol] 21.8 10*3/uL High 3.6-10.7 [facility] Comment on above: Performed By: #### L [id number], [id number] ####Release Manager: KEMAR ABEBE ([phone])[facility]ENTER[facility] (SBHLAB)[address] [place] [address] COMPREHENSIVE METABOLIC PANE Gigi 10-19-2024 Albumin [Mass/Vol] 2.8 g/dL Low 3.5-5.0 [facility] Comment on above: Performed By: #### L AB17 ####Release Manager: KEMAR ABEBE ([id number])[facility] (SBHLAB)[address] ALP [Catalytic activity/Vol] 151 U/L Normal [facility] Comment on above: Performed By: #### L AB17 ####Release Manager: KEMAR ABEBE ([id number])[facility] (SBHLAB)[address] ALT [Catalytic activity/Vol] 83 U/L Normal [facility] Comment on above: Performed By: #### L AB17 ####Release Manager: KEMAR ABEBE ([id number])[facility]ENTER[facility] (SBHLAB)[address] Anion gap [Moles/Vol] 11 mmol/L Normal 3-13 [facility] Comment on above: Performed By: #### L AB17 ####Release Manager: KEMAR ABEBE ([phone])[facility] (SB[facility])[address] AST [Catalytic activity/Vol] 50 U/L High <34 [facility] Comment on above: Performed By: #### L [id number] ####Release Manager: KEMAR ABEBE ([phone])[facility] Bilirubin [Mass/Vol] 0.8 mg/dL Normal <1.[address] [facility] Comment on above: Performed By: #### L [id number] ####Release Manager: KEMAR ABEBE ([phone])[facility] Calcium [Mass/Vol] 8.9 mg/dL Normal 8.4-10.2 [facility] Comment on above: Performed By: #### L [id number] ####Release Manager: KEMAR ABEBE ([phone])[facility] [place] [address] [place] Chloride [Moles/Vol] 102 mmol/L Normal 98-107 [facility] Comment on above: Performed By: #### L [id number] ####Release Manager: KEMAR ABEBE ([phone])[facility] (HLAB)[address] [place] [address] [place] CO2 [Moles/Vol] 22 mmol/L Normal 22-29 [facility] Comment on above: Performed By: #### L [id number] ####Release Manager: KEMAR ABEBE ([phone])[facility] [place] (SB[facility]AB)[address] Creatinine [Mass/Vol] 1.15 mg/dL Normal [facility] Comment on above: Performed By: #### L [id number] ####Release Manager: KEMAR ABEBE ([phone])[facility] ([facility])[address] [place] [address] [place] GLOMERULAR FILTRATION RATE ML/MIN/1.73 SQ M.PREDICTED 55.7 mL/min/1.73m*2 Low >60.0 [facility] Comment on above: Result Comment: Calc ulation based on the Chronic Kidney Disease Epidemiology Collaboration (CKD-EPI) equation refit without adjustment for race Performed By: #### L [id number] ####Release Manager: KEMAR ABEBE ([phone])[facility] ([facility])[address] Glucose [Mass/Vol] 223 mg/dL High 74-100 [facility] Comment on above: Performed By: #### L [id number] ####Release Manager: KEMAR ABEBE ([phone])[facility] ([facility])[address] Potassium [Moles/Vol] 3.6 mmol/L Normal 3.5-5.1 [facility] Comment on above: Result Comment: [facility] potassium values may be up to 0.5 mmol/L lower than serum values. Performed By: #### L AB17 ####Release Manager: KEMAR ABEBE ([phone])[facility] [place] ([facility])[address] [place] [address] [place] Protein [Mass/Vol] 6.5 g/dL Normal 6.4-8.3 [facility] Comment on above: Performed By: #### L [id number] ####Release Manager: KEMAR ABEBE ([phone])[facility] ([facility])[address] [place] [address] [place] Sodium [Moles/Vol] 135 mmol/L Low 136-145 [facility] Comment on above: Performed By: #### L [id number] ####Release Manager: KEMAR ABEBE ([phone])[facility] ([facility])[address] Urea nitrogen [Mass/Vol] 32 mg/dL High 9-23 [facility] Comment on above: Performed By: #### L [id number] ####Release Manager: KEMAR ABEBE ([phone])[facility] ([facility])[address] CULTURE ANAEROBICon 10-19-20 24 CULTURE ANAEROBIC Normal [facility] Comment on above: Performed By: #### L [id number] ####Release Manager: MARCELA LUCERO ([phone])[facility] ([facility])[address] [place] [address] CULTURE ANAEROBIC Normal [facility] Comment on above: Order Comment: Colle cted during drain placement Performed By: #### L [id number] ####Release Manager: MARCELA LUCERO ([phone])[facility] ([facility])[address] [place] [address] CULTURE, AEROBIC BACTERIA WI TH GRAM STAINon 10-19-2024 CULTURE, AEROBIC BACTERIA WITH GRAM STAIN Normal [facility] Comment on above: Performed By: #### L [id number] ####Release Manager: MARCELA LUCERO ([phone])[facility] [place] [address] CULTURE, AEROBIC BACTERIA WITH GRAM STAIN Normal [facility] Comment on above: Order Comment: Colle cted during drain placement Performed By: #### L [id number] ####Release Manager: MARCELA LUCERO ([phone])[facility] ([facility])[address] [place] [address] Comprehensive metabolic 1998 panelon 10-19-2024 Albumin [Mass/Vol] 2.8 g/dL Low 3.5 - 5.0 g/dL [facility] ALP [Catalytic activity/Vol] 151 U/L [facility] ALT [Catalytic activity/Vol] 83 U/L [facility] Anion gap [Moles/Vol] 11 mmol/L 3 - 13 mmol/L [facility] AST [Catalytic activity/Vol] 50 U/L High NINF - 34 U/L [facility] Bilirubin [Mass/Vol] 0.8 mg/dL NINF - 1.2 mg/dL [facility] Calcium [Mass/Vol] 8.9 mg/dL 8.4 - 10. 2 mg/dL [facility] Chloride [Moles/Vol] 102 mmol/L 98 - 10 7 mmol/L [facility] CO2 [Moles/Vol] 22 mmol/L 22 - 29 mmol/L [facility] Creatinine [Mass/Vol] 1.15 mg/dL [facility] GFR/1.73 sq M.predicted (S/P/Bld) [Vol rate/Area] 55.7 mL/min Low - PINF [facility] Comment on above: Calculation based on the Chronic Kidney Disease Epidemiology Collaboration (CKD-EPI) equation refit without adjustment for race Glucose [Mass/Vol] 223 mg/dL High 74 - 100 mg/dL [facility] Interpretation and review of laboratory results Abnormal [facility] Potassium [Moles/Vol] 3.6 mmol/L 3.5 - 5.1 mmol/L [facility] Comment on above: Plasma potassium helen ues may be up to 0.5 mmol/L lower than serum values. Protein [Mass/Vol] 6.5 g/dL 6.4 - 8.3 g/dL [facility] Sodium [Moles/Vol] 135 mmol/L Low 136 - 145 mmol/L [facility] Urea nitrogen [Mass/Vol] 32 mg/dL High 9 - 23 mg/dL [facility] Consulton 10-19-2024 Consult Normal [facility] Consult Normal [facility] Consult Normal [facility] Consult Normal [facility] HEMOGLOBIN A1Con 10-19-2024 Glucose [Mass/Vol] 151 mg/dL Normal [facility] Comment on above: Result Comment: MARIE R COMMENTS:HbA1c values of 5.7-6.4 percent indicate an increased risk for developing diabetes mellitus. HbA1c values greater than or equal to 6.5 percent are diagnostic of diabetes mellitus. For diagnosis of diabetes in individuals without unequivocal hyperglycemia, results should be confirmed by repeat testing. Performed By: #### L AB90 ####Release Manager: KEMAR ABEBE ([phone])[facility] (SBHLAB)[address] HEMOGLOBIN A1C 6.9 %HbA1C High <5.7 [facility] Comment on above: Result Comment: Norm al less than 5.7%Prediabetes 5.7% to 6.4%Diabetes 6.5% or higher--HgbA1C levels may not be accurate in patients who have renal disease, received recent blood transfusions, are anemic, or who have dyshemoglobinemia. Performed By: #### L AB90 ####Release Manager: KEMAR LUDWIGSAAD ([phone])[facility] (SBAB)[address] Laboratory - Chemistry and C hemistry - challengeon 10-19-2024 Glucose [Mass/Vol] 396 mg/dL High 70 - 100 mg/dL [facility] Glucose [Mass/Vol] 374 mg/dL High 70 - 100 mg/dL [facility] Average glucose Estimated from glycated hemoglobin (Bld) [Mass/Vol] 151 mg/dL [facility] Glucose [Mass/Vol] 336 mg/dL High 70 - 100 mg/dL [facility] Glucose [Mass/Vol] 299 mg/dL High 70 - 100 mg/dL [facility] Glucose [Mass/Vol] 207 mg/dL High 70 - 100 mg/dL [facility] Laboratory - Coagulationon 1 12-20-2023 PT Coag (Bld) [Time] 14 s High 9.0 - 1 2.[address] [facility] Laboratory - Hematology and Cell countson 10-19-2024 HbA1c (Bld) [Mass fraction] 6.9 % High NINF [facility] Comment on above: Normal less than 5.7 % Prediabetes 5.7% to 6.4% Diabetes 6.5% or higher --HgbA1C levels may not be accurate in patients who have renal disease, received recent blood transfusions, are anemic, or who have dyshemoglobinemia. Lymphocytes (Bld) [#/Vol] 2.2 10*3/uL 1.0 - 4.3 10*3/uL [facility] Lymphocytes/100 WBC (Bld) 10 % Low 15 - 45 % [facility] Monocytes (Bld) [#/Vol] 0.2 10*3/uL 0.0 - 0.9 10*3/uL [facility] Monocytes/100 WBC (Bld) 1 % Low 5 - 13 % [facility] Neutrophils (Bld) [#/Vol] 19.4 10*3/uL High 1.8 - 7.5 10*3/uL [facility] RBC morphology finding Nom (Bld) Normal [facility] Segmented neutrophils/100 WBC (Bld) 89 % High 38 - 82 % [facility] Lower GI hemoglobin spec 1 I A Ql (Stl)Ordered By: Debbie Kearns on 10-19-2024 Fecal occult blood Positive Abnormal Negative [facility] Interpretation and review of laboratory results Abnormal [facility] Methodology: Immunoassay [facility] MANUAL DIFFERENTIAL (CELLAVI DORIAN)on 10-19-2024 BAND NEUTROPHILS TOTAL PER COUNTED LEUKOCYTES BY MANUAL COUNT [facility] Comment on above: Performed By: #### L [id number], [id number] ####Release Manager: KEMAR ABEBE ([phone])[facility] [place] ([facility])[address] [place] [address] [place] BASOPHILS TOTAL PER COUNTED LEUKOCYTES BY MANUAL COUNT Normal [facility] Comment on above: Performed By: #### L [id number], [id number] ####Release Manager: KEMAR ABEBE ([id number])[facility] [place] ([facility])[address] [place] [address] [place] BLASTS TOTAL PER COUNTED LEUKOCYTES BY MANUAL COUNT Normal [facility] Comment on above: Performed By: #### L [id number], [id number] ####Release Manager: KEMAR ABEBE ([phone])[facility] [place] ([facility])[address] [place] [address] [place] EOSINOPHILS TOTAL PER COUNTED LEUKOCYTES BY MANUAL COUNT Normal [facility] Comment on above: Performed By: #### L [id number], [id number] ####Release Manager: KEMAR ABEBE ([id number])[facility] [place] ([facility])[address] [place] [address] [place] LYMPHOCYTES (10*3/UL) IN BLOOD-CELLAVISION 2.2 10*3/uL Normal 1.0-4.3 [facility] Comment on above: Performed By: #### L [id number], [id number] ####Release Manager: KEMAR ABEBE ([phone])[facility] [place] (SBHLAB)[address] LYMPHOCYTES TOTAL PER COUNTED LEUKOCYTES BY MANUAL COUNT 10 Normal [facility] Comment on above: Performed By: #### L [id number], [id number] ####Release Manager: KEMAR ABEBE ([id number])[facility] [place] ([facility])[address] [place] [address] [place] LYMPHOCYTES/100 LEUKOCYTES IN BLOOD-CELLAVISION 10 % Low 15-45 [facility] Comment on above: Performed By: #### L [id number], [id number] ####Release Manager: KEMAR ABEBE ([phone])[facility] [place] (SBHLAB)[address] METAMYELOCYTES TOTAL PER COUNTED LEUKOCYTES BY MANUAL COUNT [facility] Comment on above: Performed By: #### L [id number], [id number] ####Release Manager: KEMAR ABEBE ([phone])[facility] [place] ([facility])[address] [place] [address] [place] MONOCYTES (10*3/UL) IN BLOOD-CELLAVISION 0.2 10*3/uL Normal 0.0-0.9 [facility] Comment on above: Performed By: #### L [id number], [id number] ####Release Manager: KEMAR ABEBE ([phone])[facility] [place] ([facility])[address] [place] [address] [place] MONOCYTES TOTAL PER COUNTED LEUKOCYTES BY MANUAL COUNT 1 [facility] Comment on above: Performed By: #### L [id number], [id number] ####Release Manager: KEMAR ABEBE ([phone])[facility] [place] ([facility])[address] [place] [address] [place] MONOCYTES/100 LEUKOCYTES IN BLOOD-SOY 1 % Low 5-13 [facility] Comment on above: Performed By: #### L [id number], [id number] ####Release Manager: KEMAR ABEBE ([phone])[facility] [place] (SBHLAB)[address] [place] [address] [place] MYELOCYTES COUNTED BY MANUAL COUNT [facility] Comment on above: Performed By: #### L [id number], [id number] ####Release Manager: KEMAR ABEBE ([phone])[facility] [place] ([facility])[address] [place] [address] [place] NEUTROPHILS TOTAL PER COUNTED LEUKOCYTES BY MANUAL COUNT 89 Normal [facility] Comment on above: Performed By: #### L [id number], [id number] ####Release Manager: KEMAR ABEBE ([phone])[facility] [place] ([facility])[address] [place] [address] [place] PROMYELOCYTES TOTAL PER COUNTED LEUKOCYTES BY MANUAL COUNT [facility] Comment on above: Performed By: #### L [id number], [id number] ####Release Manager: KEMAR ABEBE ([phone])[facility] [place] ([facility])[address] [place] [address] [place] RBC MORPHOLOGY IN BLOOD Normal Normal [facility] Comment on above: Performed By: #### L [id number], [id number] ####Release Manager: KEMAR ABEBE ([phone])[facility] [place] ([facility])[address] [place] [address] [place] SEGMENTED NEUTROPHILS (10*3/UL) IN BLOOD-CELLAVISION 19.4 10*3/uL High 1.8-7.5 [facility] Comment on above: Performed By: #### L [id number], [id number] ####Release Manager: KEMAR ABEBE ([phone])[facility] [place] ([facility])[address] [place] [address] [place] SEGMENTED NEUTROPHILS/100 LEUKOCYTES-CE 89 % High 38-82 [facility] Comment on above: Performed By: #### L [id number], [id number] ####Release Manager: KEMAR ABEBE ([phone])[facility] (SBHLAB)[address] [place] [address] UNCLASSIFIED CELLS TOTAL PER COUNTED LEUKOCYTES BY MANUAL COUNT Normal [facility] Comment on above: Performed By: #### L [id number], [id number] ####Release Manager: KEMAR ABEBE ([id number])[facility] (SBHLAB)[address] [place] [address] VARIANT LYMPHOCYTES TOTAL PER COUNTED LEUKOCYTES BY MANUAL COUNT Normal [facility] Comment on above: Performed By: #### L [id number], [id number] ####Release Manager: KEMAR LUDWIGSAAD ([phone])[facility] (SBHLAB)[address] [place] [address] No Panel Informationon 10-19 Interpretation and review of laboratory results Abnormal [facility] Performed by: [facility], [address] [place] [address] CLIA ID: [id number] [facility] Interpretation and review of laboratory results Abnormal [facility] Performed by: [facility], [address] [place] [address] CLIA ID: [id number] [facility] Interpretation and review of laboratory results Abnormal [facility] HbA1c values of 5.7- 6.4 percent indicate an increased risk for developing diabetes mellitus. HbA1c values greater than or equal to 6.5 percent are diagnostic of diabetes mellitus. For diagnosis of diabetes in individuals without unequivocal hyperglycemia, results should be confirmed by repeat testing. [facility] Interpretation and review of laboratory results Abnormal [facility] Performed by: [facility], [address] [place] [address] CLIA ID: [id number] [facility] Interpretation and review of laboratory results Abnormal [facility] Performed by: [facility], [address] [place] [address] CLIA ID: [id number] [facility] Atypical Lymphocytes Manual [facility] Bands Manual [facility] Basophils Manual [facility] Blasts Manual [facility] Eosinophils Manual [facility] Interpretation and review of laboratory results Abnormal [facility] Lymphocytes Manual 10 [facility] Metamyelocytes Manual [facility] Monocytes Manual 1 [facility] Myelocytes Manual [facility] Neutrophils Manual 89 [facility] Promyelocytes Manual [facility] Unclassified Cells, Manual [facility] Interpretation and review of laboratory results Abnormal [facility] Performed by: [facility], [address] [address] CLIA ID: [id number] [facility] OCCULT BLOOD, STOOLon 2023 OCCULT BLOOD, STOOL FECAL OCCULT, STOOL (A) Reference Positive Negative ORDER COMMENTS: (A) Methodology: Immunoassay Normal [facility] Comment on above: Performed By: #### L [id number] ####Release Manager: KEMAR ABEBE ([phone])[facility] ([facility])[address] [place] [address] PROTHROMBIN TIMEon INR Coag (PPP) [Relative time] 1.3 {INR} High 0.9-1.1 [facility] Comment on above: Result Comment: Ubaldo [...] Myocardial Infarction Performed By: #### L [id number] ####Release Manager: KEMAR ABEBE ([phone])[facility] PT Coag (PPP) [Time] 14.0 s High 9.0-12.[address] [facility] Comment on above: Performed By: #### L [id number] ####Release Manager: KEMAR ABEBE ([phone])[facility] ([facility])[address] PT Coag (Bld) [Time]on 10-19 INR Coag (PPP) [Relative time] 1.3 {INR} High 0.9 - 1.[address] [facility] Comment on above: Recommended Anticoag ulant Therapy: [...] and review of laboratory results Abnormal [facility] Progress Noteon 10-19-2024 Progress Note Normal [facility] Progress Note Normal [facility] US GUIDED PERCUTANEOUS PERIT HARRY OR RETROPERITONEAL FLUID COLLECTION DRAINAGEon 10-19-2024 US GUIDED PERCUTANEOUS PERITONEAL OR RETROPERITONEAL FLUID COLLECTION DRAINAGE Normal [facility] US Guidance for biopsy of Un specified body regionon 10-19-2024 Successful placement of a drainage catheter into the gallbladder using ultrasound guidance. Report Dictated on Electronically Signed By: Alfredito Baumann MD Electronically Signed Date/Time: 10/19/2024 2:22 PM [facility] Patient Name: WILL ALVARADO : [...] advanced. Subcutaneous tract was dilated. An 8 Tunisian drainage catheter advanced over the wire. The catheter was attached to a bag. A dressing was applied. [facility] Alfredito Baumann MD - 10/19/2024 Patient Name: WILL JACINTO : 1965 [facility]#: [id number] Exam Date/Time: 10/19/2024 13:34 Procedure: US GUIDED [...] advanced. Subcutaneous tract was dilated. An 8 Tunisian drainage catheter advanced over the wire. The catheter was attached to a bag. A dressing was applied. IMPRESSION: Successful placement of a drainage catheter into the gallbladder using ultrasound guidance. Report Dictated on Electronically Signed By: Alfredito Baumann MD Electronically Signed Date/Time: 10/19/2024 2:22 PM EST [facility] Radiology Study observation (narrative) [facility] US Guidance for biopsy of Un specified body regionOrdered By: Alfredito Baumann on 10-19-2024 [facility] Work Phone: Urinalysis complete panel (U )Ordered By: Jyoti Cartwright on 10-19-2024 Amorphous Crystals, Urine Few Abnormal Negative /HPF [facility] Bacteria LM.HPF (Urine sed) [#/Area] Few Abnormal Negative /HPF [facility] Bilirubin Ql (U) Negative Negative mg/dL [facility] Clarity (U) Turbid Abnormal Clear [facility] Color (U) Yellow Lt. Yellow [facility] Epithelial cells.squamous LM.HPF (Urine sed) [#/Area] 0-[address] [facility] Glucose Ql (U) Normal Normal (<70) mg/dL [facility] Granular casts LM.HPF (Urine sed) [#/Area] 3-5 Abnormal Negative /LPF [facility] Hemoglobin Ql (U) 0.2 mg/dL Abnormal Negative [facility] Hyaline casts Auto (Urine sed) [#/Area] 3-5 Abnormal Negative /LPF [facility] Interpretation and review of laboratory results Abnormal [facility] Ketones (U) [Mass/Vol] Negative Negat bernard mg/dL [facility] Leukocyte clumps LM.HPF (Urine sed) [#/Area] Rare Abnormal Negative /HPF [facility] Leukocyte esterase Test strip Ql (U) 500 Abnormal Negative Kat/uL [facility] Mucus LM.HPF (Urine sed) [#/Area] Few Negative /LPF [facility] Nitrite Ql (U) Negative Negative [facility] Non-Squamous Epithalial Cells, Urine 0-2 Abnormal Negative /HPF [facility] pH (U) 5.5 [pH] 5.0 - 8.[address] [facility] Protein (U) [Mass/Vol] 50 mg/dL Abnormal Negative [facility] RBC LM.HPF (Urine sed) [#/Area] 11-[address] [facility] Specific gravity (U) [Rel density] High 1.005 - 1.[address] [facility] Urobilinogen (U) [Mass/Vol] Normal Normal (0-1) mg/dL [facility] WBC LM.HPF (Urine sed) [#/Area] 51-100 Abnormal [facility] CBC W Auto Differential pane l (Bld)Ordered By: Silvia Bone on 10-18-2024 Erythrocyte distribution width (RBC) [Ratio] 14.5 % 11.5 - 15.0 % [facility] Hematocrit (Bld) [Volume fraction] 36.8 % Male: 40.0-52.0 ; Female: 35.0-47.[address] [facility] Hemoglobin (Bld) [Mass/Vol] 11.6 g/dL Low 11.7 - 18.0 g/dL [facility] Interpretation and review of laboratory results Abnormal [facility] MCH (RBC) [Entitic mass] 27.1 pg 26.0 - 34.[address] [facility] MCHC (RBC) [Mass/Vol] 31.5 % 30.5 - 36.0 % [facility] MCV (RBC) [Entitic vol] 86 fL 77.0 - 99.[address] [facility] Platelet mean volume (Bld) [Entitic vol] 9.8 fL 9.0 - 12.[address] [facility] Platelets (Bld) [#/Vol] 373 10*3/uL 140 - 440 10*3/uL [facility] RBC (Bld) [#/Vol] 4.28 10*6/uL Male: 4.40-5.90; Female: 3.80-5.[address] [facility] WBC (Bld) [#/Vol] 25.9 10*3/uL High 3.6 - 10.7 10*3/uL [facility] CBC WITH AUTO DIFFERENTIALon 10-18-2024 Erythrocyte distribution width (RBC) [Ratio] 14.5 % Normal 11.5-15.0 [facility] Comment on above: Performed By: #### L [id number], [id number] ####Release Manager: KEMAR ABEBE ([phone])[facility] ([address] Hematocrit (Bld) [Volume fraction] 36.8 % Normal Male: 40.0-52.0 ; Female: 35.0-47.0 [facility] Comment on above: Performed By: #### L [id number], [id number] ####Release Manager: KEMAR ABEBE ([phone])[facility] ([facility])[address] [place] [address] Hemoglobin (Bld) [Mass/Vol] 11.6 g/dL Low 11.7-18.0 [facility] Comment on above: Performed By: #### L [id number], [id number] ####Release Manager: KEMAR [phone])[facility] (SBHLAB)[address] MCH (RBC) [Entitic mass] 27.1 pg Normal 26.0-34.0 [facility] Comment on above: Performed By: #### L [id number], [id number] ####Release Manager: KEMAR ANDRAE ([phone])[facility] (SBHLAB)[address] MCHC 31.5 % Normal 30.5-36.0 [facility] Comment on above: Performed By: #### L [id number], [id number] ####Release Manager: KEMAR ANDRAE ([phone])[facility] (SBHLAB)[address] MCV (RBC) [Entitic vol] 86.0 fL Normal 77.0-99.0 S [facility] Comment on above: Performed By: #### L [id number], [id number] ####Release Manager: KEMAR LUDWIGSAAD ([id number])[facility] (SBHLAB)[address] Platelet mean volume (Bld) [Entitic vol] 9.8 fL Normal 9.0-12.7 [facility] Comment on above: Performed By: #### L [id number], [id number] ####Release Manager: KEMAR ABEBE ([phone])[facility] (SBHLAB)[address] Platelets (Bld) [#/Vol] 373 10*3/uL Normal 140-440 [facility] Comment on above: Performed By: #### L [id number], [id number] ####Release Manager: KEMAR LUDWIGSAAD ([phone])[facility] (SBHLAB)[address] RBC (Bld) [#/Vol] 4.28 10*6/uL Normal Male: 4.40-5.90; Female: 3.80-5.20 [facility] Comment on above: Performed By: #### L [id number], [id number] ####Release Manager: KEMAR ABEBE ([phone])[facility] [place] ([facility])[address] [place] [address] WBC (Bld) [#/Vol] 25.9 10*3/uL High 3.6-10.7 [facility] Comment on above: Performed By: #### L [id number], [id number] ####Release Manager: KEMAR ABEBE ([phone])[facility] [place] ([facility])[address] COMPLETE URINALYSISon 2023 AMORPHOUS CRYSTALS (#/HPF) IN URINE Few Abnormal Negative [facility] Comment on above: Performed By: #### L [id number] ####Release Manager: MARCELA LUCERO ([id number])[facility] (SACLAB)[address] [place] [address]#### [id number] ####Release Manager: KEMAR ABEBE ([phone])[facility] [place] (SB[facility]AB)[address] [place] [address] BACTERIA (#/HPF) IN URINE Few Abnormal Negative [facility] Comment on above: Performed By: #### L [id number] ####Release Manager: MARCELA LUCERO ([id number])[facility] (SACLAB)[address] [place] [address]#### [id number] ####Release Manager: KEMAR ABEBE ([id number])[facility] [place] (SB[facility]AB)[address] [place] [address] BILIRUBIN, TOTAL PRESENCE IN URINE Negative Normal Negative [facility] Comment on above: Performed By: #### L [id number] ####Release Manager: MARCELA LUCERO ([id number])[facility] (SAC[facility])[address] [place] [address]#### [id number] ####Release Manager: KEMAR ABEBE ([id number])[facility] [place] ([facility])[address] Clarity (U) Turbid Abnormal Clear [facility] Comment on above: Performed By: #### L [id number] ####Release Manager: MARCELA LUCERO ([id number])[facility] (SAC[facility])[address] [place] [address]#### [id number] ####Release Manager: KEMAR ABEBE ([phone])[facility] (SB[facility]AB)[address] [place] [address] Color (U) Yellow Normal Lt. Yellow [facility] Comment on above: Performed By: #### L [id number] ####Release Manager: MARCELA LUCERO ([id number])[facility] ([facility]AC[facility])[address] [place] [address]#### [id number] ####Release Manager: KEMAR ABEBE ([phone])[facility] ([facility])[address] [place] [address] GLUCOSE (MG/DL) IN URINE Normal Normal Normal (<70) [facility] Comment on above: Performed By: #### L AB239 ####Release Manager: MARCELA LUCERO ([id number])[facility] (SAC[facility])[address] [place] [address]#### [id number] ####Release Manager: KEMAR ABEBE ([phone])[facility] ([facility]AB)[address] [place] [address] GRANULAR CASTS (#/LPF) IN URINE 3-5 Abnormal Negative [facility] Comment on above: Performed By: #### L AB239 ####Release Manager: MARCELA LUCERO ([id number])[facility] [place] [address]#### [id number] ####Release Manager: KEMAR ABEBE ([id number])[facility] (SBHLAB)[address] [place] [address] HEMOGLOBIN PRESENCE IN URINE 0.2 mg/dL Abnormal Negative [facility] Comment on above: Performed By: #### L AB239 ####Release Manager: MARCELA LUCERO ([phone])[facility] (SAC[facility])[address] [place] [address]#### [id number] ####Release Manager: KEMAR ABEBE ([id number])[facility] [place] ([facility])[address] [place] [address] HYALINE CASTS (#/LPF) IN URINE SEDIMENT BY MICROSCOPY 3-5 Abnormal Negative [facility] Comment on above: Performed By: #### L [id number] ####Release Manager: MARCELA LUCERO ([id number])[facility] ([facility])[address] [place] [address]#### [id number] ####Release Manager: KEMAR ABEBE ([id number])[facility] [place] (SB[facility])[address] [place] [address] Ketones Ql (U) Negative Normal Negative [facility] Comment on above: Performed By: #### L [id number] ####Release Manager: MARCELA LUCERO ([id number])[facility] (SACLAB)[address] [place] [address]#### [id number] ####Release Manager: KEMAR ABEBE ([phone])[facility] (SBHLAB)[address] [place] [address] LEUKOCYTE ESTERASE PRESENCE IN URINE BY TEST STRIP 500 Kat/uL Abnormal Negative [facility] Comment on above: Performed By: #### L [id number] ####Release Manager: MARCELA LUCERO ([id number])[facility] (SAC[facility])[address] [place] [address]#### [id number] ####Release Manager: KEMAR ABEBE ([phone])[facility] [place] ([facility])[address] [place] [address] MUCUS (#/LPF) IN URINE SEDIMENT Few Normal Negative [facility] Comment on above: Performed By: #### L AB239 ####Release Manager: MARCELA LUCERO ([id number])[facility] ([facility])[address] [place] [address]#### [id number] ####Release Manager: KEMAR ABEBE ([phone])[facility] [place] [address] NITRITE PRESENCE IN URINE Negative Normal Negative [facility] Comment on above: Performed By: #### L AB239 ####Release Manager: MARCELA LUCERO ([id number])[facility] ([facility])[address] [place] [address]#### [id number] ####Release Manager: KEMAR ABEBE ([phone])[facility] ([facility])[address] [place] [address] NON-SQUAMOUS EPITHELIAL (#/HPF) IN URINE 0-2 Abnormal Negative [facility] Comment on above: Performed By: #### L AB239 ####Release Manager: MARCELA LUCERO ([id number])[facility] (SAC[facility])[address] [place] [address]#### [id number] ####Release Manager: KEMAR ABEBE ([phone])[facility] ([facility])[address] [place] [address] pH (U) 5.5 [pH] Normal 5.0-8.0 [facility] Comment on above: Performed By: #### L [id number] ####Release Manager: MARCELA LUCERO ([id number])[facility] (S[facility])[address] [place] [address]#### [id number] ####Release Manager: KEMAR ABEBE ([phone])[facility] [place] [address] Protein (U) [Mass/Vol] 50 mg/dL Abnormal Negative [facility] Comment on above: Performed By: #### L AB239 ####Release Manager: MARCELA LUCERO ([id number])[facility] (SAC[facility])[address] [place] [address]#### [id number] ####Release Manager: KEMAR ABEBE ([phone])[facility] [place] [address] RBC (#/HPF) IN URINE SEDIMENT 11-25 Abnormal 0-2 [facility] Comment on above: Performed By: #### L AB239 ####Release Manager: MARCELA LUCERO ([phone])[facility] ([facility])[address] [place] [address]#### [id number] ####Release Manager: KEMAR ABEBE ([id number])[facility] [place] [address] Specific gravity (U) [Rel density] >1.030 High 1.005-1.030 [facility] Comment on above: Performed By: #### L [id number] ####Release Manager: MARCELA LUCERO ([id number])[facility] ([facility])[address] [place] [address]#### [id number] ####Release Manager: KEMAR ABEBE ([phone])[facility] [place] [address] SQUAMOUS EPITHELIAL CELLS (#/HPF) IN URINE SEDIMENT 0-2 Normal 3-5 [facility] Comment on above: Performed By: #### L [id number] ####Release Manager: MARCELA LUCERO ([id number])[facility] ([facility])[address] [place] [address]#### [id number] ####Release Manager: KEMAR ABEBE ([id number])[facility] [place] [address] UROBILINOGEN (MG/DL) IN URINE Normal Normal Normal (0-1) [facility] Comment on above: Performed By: #### L [id number] ####Release Manager: MARCELA LUCERO ([id number])[facility] (SACLAB)[address] [place] [address] [place]#### [id number] ####Release Manager: KEMAR ABEBE ([phone])[facility] [place] ([facility]AB)[address] WBC (LEUKOCYTE) (#/HPF) IN URINE SEDIMENT 51-100 Abnormal 0-5 [facility] Comment on above: Performed By: #### L [id number] ####Release Manager: MARCELA LUCERO ([id number])[facility] (SACLAB)[address]#### [id number] ####Release Manager: KEMAR ABEBE ([id number])[facility] [place] (SB[facility]AB)[address] WBC (LEUKOCYTE) CLUMPS (#/HPF) IN URINE SEDIMENT Rare Abnormal Negative [facility] Comment on above: Performed By: #### L [id number] ####Release Manager: MARCELA LUCERO ([id number])[facility] ([facility])[address] [place] [address]#### [id number] ####Release Manager: KEMAR ABEBE ([id number])[facility] [place] (SB[facility]AB)[address] COMPREHENSIVE METABOLIC PANE Gigi 10-18-2024 Albumin [Mass/Vol] 3.0 g/dL Low 3.5-5.0 [facility] Comment on above: Performed By: #### L AB17, LAB99, [id number] ####Release Manager: KEMAR ABEBE ([id number])[facility] [place] (SBHLAB)[address] ALP [Catalytic activity/Vol] 133 U/L Normal [facility] Comment on above: Performed By: #### L AB17, LAB99, [id number] ####Release Manager: KEMAR ABEBE ([phone])[facility] [place] (SB[facility]AB)[address] ALT [Catalytic activity/Vol] 67 U/L Normal [facility] Comment on above: Performed By: #### Elijah MENDOZA, LAB99, [id number] ####Release Manager: KEMAR ABEBE ([id number])[facility] [place] (SBHLAB)[address] Anion gap [Moles/Vol] 13 mmol/L Normal 3-13 [facility] Comment on above: Performed By: #### Elijah MENDOZA, LAB99, [id number] ####Release Manager: KEMAR ABEBE ([id number])[facility] (SBHLAB)[address] AST [Catalytic activity/Vol] 50 U/L High <34 [facility] Comment on above: Performed By: #### Elijah MENDOZA, LAB99, [id number] ####Release Manager: KEMAR ABEBE ([id number])[facility] [place] (SBHLAB)[address] Bilirubin [Mass/Vol] 0.7 mg/dL Normal <1.[address] [facility] Comment on above: Performed By: #### Elijah MENDOZA, LAB99, [id number] ####Release Manager: KEMAR ABEBE ([id number])[facility] (SBHLAB)[address] Calcium [Mass/Vol] 9.0 mg/dL Normal 8.4-10.2 [facility] Comment on above: Performed By: #### Elijah MENDOZA, LAB99, [id number] ####Release Manager: KEMAR ABEBE ([id number])[facility] [place] (SBHLAB)[address] Chloride [Moles/Vol] 103 mmol/L Normal 98-[address] [facility] Comment on above: Performed By: #### Elijah ABOsmin, LAB99, [id number] ####Release Manager: KEMAR ABEBE ([phone])[facility] (SBHLAB)[address] [place] [address] [place] CO2 [Moles/Vol] 21 mmol/L Low 22-29 [facility] Comment on above: Performed By: #### Elijah AB17, LAB99, [id number] ####Release Manager: KEMAR ABEBE ([phone])[facility] [place] (SBHLAB)[address] Creatinine [Mass/Vol] 1.16 mg/dL Normal [facility] Comment on above: Performed By: #### Elijah AB17, LAB99, [id number] ####Release Manager: KEMAR ABEBE ([phone])[facility] (SBHLAB)[address] GLOMERULAR FILTRATION RATE ML/MIN/1.73 SQ M.PREDICTED 55.1 mL/min/1.73m*2 Low >60.0 [facility] Comment on above: Result Comment: Calc ulation based on the Chronic Kidney Disease Epidemiology Collaboration (CKD-EPI) equation refit without adjustment for race Performed By: #### Elijah OJEDA17, LAB99, [id number] ####Release Manager: KEMAR ABEBE ([phone])[facility] (SBHLAB)[address] [place] [address] Glucose [Mass/Vol] 226 mg/dL High 74-100 [facility] Comment on above: Performed By: #### Elijah AB17, LAB99, [id number] ####Release Manager: KEMAR ABEBE ([phone])[facility] (SBHLAB)[address] Potassium [Moles/Vol] 4.1 mmol/L Normal 3.5-5.1 [facility] Comment on above: Result Comment: [facility] potassium values may be up to 0.5 mmol/L lower than serum values. Performed By: #### L AB17, LAB99, [id number] ####Release Manager: KEMAR ABEBE ([phone])[facility] (SBHLAB)[address] Protein [Mass/Vol] 6.7 g/dL Normal 6.4-8.3 [facility] Comment on above: Performed By: #### L AB17, LAB99, [id number] ####Release Manager: KEMAR ABEBE ([phone])[facility] (SBHLAB)[address] Sodium [Moles/Vol] 137 mmol/L Normal 136-145 [facility] Comment on above: Performed By: #### L AB17, LAB99, [id number] ####Release Manager: KEMAR ABEBE ([id number])[facility] (SBHLAB)[address] Urea nitrogen [Mass/Vol] 24 mg/dL High 9-23 [facility] Comment on above: Performed By: #### L AB17, LAB99, [id number] ####Release Manager: KEMAR ABEBE ([phone])[facility] (SBHLAB)[address] [place] [address] CT ABDOMEN PELVIS W CONTRAST on 10-18-2024 CT ABDOMEN PELVIS W CONTRAST Normal [facility] CT Abdomen and Pelvis W cont rast Erica 10-18-2024 Distended gallbladde r with suspected gallbladder wall edema concerning for acute cholecystitis. Distended stomach with air-fluid level may be related. Please correlate clinically. Follow-up recommended. [facility] Dr Woodall. Report Dictated on Electronically Signed By: Javy Urias MD Electronically Signed Date/Time: 10/18/2024 7:12 PM [facility] Patient Name: WILL ALVARADO : 1965 [...] adenopathy. No definite aneurysm. No spinal compression. [facility] Javy Urias MD - 10/18/2024 [facility] Name: [facility] 1965 [id number] Exam Date/Time: 10/18/2024 17:21 Procedure: CT ABDOMEN [...] Electronically Signed Date/Time: 10/18/2024 7:12 PM EST [employer] [facility] Radiology Study observation (narrative) [facility] CTA Chest vessels WO and W c ontrast Erica 10-18-2024 Impression:Very limi laura due to motion.. Consider repeat exam or VQ scan for persistent symptoms. Note made of distended stomach with air-fluid level. Report Dictated on Electronically Signed By: Javy Urias MD Electronically Signed Date/Time: 10/18/2024 7:05 PM [facility] Patient Name: WILL ALVARADO : 1965 [id number] Exam Date/Time: 10/18/2024 17:20 Procedure: CT CHEST [...] Distended stomach with air-fluid level. Significance uncertain.. [facility] Javy Urias MD - 10/18/2024 Patient [...] Electronically Signed Date/Time: 10/18/2024 7:05 PM EST [facility] Radiology Study observation (narrative) [facility] CTA Chest vessels WO and W c ontrast IVOrdered By: Javy Urias on 10-18-[address] [facility] Work Phone: Comprehensive metabolic 1998 panelon 10-18-2024 Albumin [Mass/Vol] 3 g/dL Low 3.5 - 5.0 g/dL [facility] ALP [Catalytic activity/Vol] 133 U/L [facility] ALT [Catalytic activity/Vol] 67 U/L [facility] Anion gap [Moles/Vol] 13 mmol/L 3 - 13 mmol/L [facility] AST [Catalytic activity/Vol] 50 U/L High NINF - 34 U/L [facility] Bilirubin [Mass/Vol] 0.7 mg[facility]/dL [facility] Calcium [Mass/Vol] 9 mg/dL 8.4 - 10. 2 mg/dL [facility] Chloride [Moles/Vol] 103 mmol/L 98 - 10 7 mmol/L [facility] CO2 [Moles/Vol] 21 mmol/L Low 22 - 29 mmol/L [facility] Creatinine [Mass/Vol] 1.16 mg/dL [facility] GFR/1.73 sq M.predicted (S/P/Bld) [Vol rate/Area] 55.1 mL/min Low - PINF [facility] Comment on above: Calculation based on the Chronic Kidney Disease Epidemiology Collaboration (CKD-EPI) equation refit without adjustment for race Glucose [Mass/Vol] 226 mg/dL High 74 - 100 mg/dL [facility] Interpretation and review of laboratory results Abnormal [facility] Potassium [Moles/Vol] 4.1 mmol/L 3.5 - 5.1 mmol/L [facility] Comment on above: Plasma potassium helen ues may be up to 0.5 mmol/L lower than serum values. Protein [Mass/Vol] 6.7 g/dL 6.4 - 8.3 g/dL [facility] Sodium [Moles/Vol] 137 mmol/L 136 - 145 mmol/L [facility] Urea nitrogen [Mass/Vol] 24 mg/dL High 9 - 23 mg/dL [facility] ECG 12-LEADon 10-18-2024 ECG 12-LEAD IMPRESSION: Sinus rhythm Left ventricular hypertrophy Anterior Q waves, possibly due to LVH Electronically Signed On 10-18-2024 23:06:53 EST by Sunitha Borja Normal [facility] ED Nursing Noteon 10-18-2024 ED Nursing Note EKG at bedside Normal [facility] ED Nursing Note EKG called Normal [facility] ED Nursing Note Pt presents to er [facility]. Pt presents with abd pain, diarrhea, chest pain. Pt presents aox4 speaking in full and complete sentences. Normal [facility] ED Provider Noteon ED Provider Note Normal [facility] HIGH SENSITIVITY TROPONIN, S ERIAL BASELINEon 10-18-2024 TROPONIN HIGH SENSITIVITY BASELINE <3 Normal [facility] Comment on above: Performed By: #### L AB17, LAB99, [id number] ####Release Manager: KEMAR ABEBE ([phone])[facility] ([facility])[address] [place] [address] HIGH SENSITIVITY TROPONIN, S ERIAL, SECOND TESTon 10-18-2024 TROPONIN HS DELTA, BASELINE TO SECOND Normal [facility] Comment on above: Result Comment: A [...] further clinical guidance. Performed By: #### L [id number] ####Release Manager: KEMAR ABEBE ([phone])[facility] TROPONIN HS, SERIAL REFLEX, TEST TWO <3 Normal [facility] Comment on above: Performed By: #### L [id number] ####Release Manager: KEMAR ABEBE ([phone])[facility] ([facility])[address] LACTIC ACID WITH REFLEXon Lactate [Moles/Vol] 0.8 mmol/L Normal 0.5-2.2 [facility] Comment on above: Performed By: #### L [id number] ####Release Manager: KEMAR ABEBE ([id number])[facility] ([facility])[address] [place] [address] Lactate [Moles/Vol] 2.2 mmol/L Normal 0.5-2.2 [facility] Comment on above: Performed By: #### L [id number] ####Release Manager: KEMAR ABEBE ([phone])[facility] ([facility])[address] LIPASEon 10-18-2024 Lipase [Catalytic activity/Vol] 6 U/L Normal <55 [facility] Comment on above: Performed By: #### L AB17, LAB99, [id number] ####Release Manager: KEMAR ABEBE ([phone])[facility] ([facility])[address] Laboratory - Chemistry and C hemistry - challengeon 10-18-2024 Lactate [Moles/Vol] 0.8 mmol/L 0.5 - 2. 2 mmol/L [facility] Glucose [Mass/Vol] 136 mg/dL High 70 - 100 mg/dL [facility] Lactate [Moles/Vol] 2.2 mmol/L 0.5 - 2. 2 mmol/L [facility] Lipase [Catalytic activity/Vol] 6 U/L NINF - 55 U/L [facility] Lipase [Catalytic activity/V ol]on 10-18-2024 Interpretation and review of laboratory results Normal [facility] MANUAL DIFFERENTIALon 2023 BAND NEUTROPHILS TOTAL PER COUNTED LEUKOCYTES BY MANUAL COUNT 7 Normal [facility] Comment on above: Performed By: #### L [id number], [id number] ####Release Manager: KEMAR ABEBE ([phone])[facility] [place] ([facility])[address] BANDS 0.9 10*3/uL High <=0.0 [facility] Comment on above: Performed By: #### L [id number], [id number] ####Release Manager: KEMAR ABEBE ([phone])[facility] [place] ([facility])[address] CELLS COUNTED TOTAL (#) IN BLOOD 200 Normal [facility] Comment on above: Performed By: #### L [id number], [id number] ####Release Manager: KEMAR ABEBE ([phone])[facility] [place] ([facility])[address] LEUKOCYTE MORPHOLOGY FINDING IN BLOOD Normal Normal [facility] Comment on above: Performed By: #### L [id number], [id number] ####Release Manager: KEMAR ABEBE ([phone])[facility] [place] ([facility])[address] LEUKOCYTES (10*3/UL) NUCLEATED ERYTHROCYTE ADJUST 25.9 10*3/uL High 3.6-10.7 [facility] Comment on above: Performed By: #### L [id number], [id number] ####Release Manager: KEMAR ABEBE ([phone])[facility] [place] ([facility])[address] [place] [address] [place] LYMPHOCYTES (10*3/UL) IN BLOOD BY MANUAL COUNT 0.4 10*3/uL Low 1.0-4.3 [facility] Comment on above: Performed By: #### L AS1869, [id number] ####Release Manager: KEMAR ABEBE ([phone])[facility] [place] (SBHLAB)[address] [place] [address] [place] LYMPHOCYTES TOTAL PER COUNTED LEUKOCYTES BY MANUAL COUNT 3 Normal [facility] Comment on above: Performed By: #### L VY0343, [id number] ####Release Manager: KEMAR ABEBE ([phone])[facility] [place] (SBHLAB)[address] [place] [address] [place] LYMPHOCYTES VARIANT/100 LEUKOCYTES IN BLOOD 3 % High <=0 [facility] Comment on above: Performed By: #### L [id number], [id number] ####Release Manager: KEMAR ABEBE ([id number])[facility] ([facility])[address] [place] [address] [place] LYMPHOCYTES/100 LEUKOCYTES IN BLOOD BY MANUAL COUNT 2 % Low 15-45 [facility] Comment on above: Performed By: #### L [id number], [id number] ####Release Manager: KEMAR ABEBE ([id number])[facility] ([facility])[address] [place] [address] [place] METAMYELOCYTES (10*3/UL) IN BLOOD BY MANUAL COUNT 0.1 10*3/uL High <=0.0 [facility] Comment on above: Performed By: #### L [id number], [id number] ####Release Manager: KEMAR ABEBE ([id number])[facility] ([facility])[address] [place], [place] [address] [place] METAMYELOCYTES TOTAL PER COUNTED LEUKOCYTES BY MANUAL COUNT 1 Normal [facility] Comment on above: Performed By: #### L [id number], [id number] ####Release Manager: KEMAR ABEBE ([phone])[facility] ([facility])[address] [place] [address] [place] METAMYELOCYTES/100 LEUKOCYTES IN BLOOD BY MANUAL COUNT 1 % High <=0 [facility] Comment on above: Performed By: #### L [id number], [id number] ####Release Manager: KEMAR ABEBE ([phone])[facility] ([facility])[address] [place] [address] [place] MONOCYTES (10*3/UL) IN BLOOD BY MANUAL COUNT 1.4 10*3/uL High 0.0-0.9 [facility] Comment on above: Performed By: #### L [id number], [id number] ####Release Manager: KEMAR ABEBE ([id number])[facility] ([facility])[address] [place] [address] [place] MONOCYTES TOTAL PER COUNTED LEUKOCYTES BY MANUAL COUNT 11 Normal [facility] Comment on above: Performed By: #### L [id number], [id number] ####Release Manager: KEMAR ABEBE ([id number])[facility] [place] [address] [place] MONOCYTES/100 LEUKOCYTES IN BLOOD BY MANUAL COUNT 6 % Normal 5-13 [facility] Comment on above: Performed By: #### L [id number], [id number] ####Release Manager: KEMAR ABEBE ([id number])[facility] [place] [address] [place] NEUTROPHILS (SEGS+BANDS) (10*3/UL) BY MANUAL COUNT 23.2 10*3/uL High 1.8-7.0 [facility] Comment on above: Performed By: #### L [id number], [id number] ####Release Manager: KEMAR ABEBE ([phone])[facility] [place] [address] [place] NEUTROPHILS BAND FORM/100 LEUKOCYTES IN BLOOD BY MANUAL COUNT 4 % High <=0 [facility] Comment on above: Performed By: #### L [id number], [id number] ####Release Manager: KEMAR ABEBE ([id number])[facility] ([facility])[address] [place] [address] [place] NEUTROPHILS TOTAL PER COUNTED LEUKOCYTES BY MANUAL COUNT 172 Normal [facility] Comment on above: Performed By: #### L [id number], [id number] ####Release Manager: KEMAR ABEBE ([id number])[facility] ([facility])[address] [place] [address] [place] PLATELET MORPHOLOGY IN BLOOD Normal Normal [facility] Comment on above: Performed By: #### L [id number], [id number] ####Release Manager: KEMAR ABEBE ([id number])[facility] ([facility])[address] [place] [address] [place] RBC MORPHOLOGY IN BLOOD Normal Normal S [facility] Comment on above: Performed By: #### L [id number], [id number] ####Release Manager: KEMAR ABEBE ([phone])[facility] ([facility])[address] [place] [address] [place] SEGEMENTED NEUTROPHILS/100 LEUKOCYTES BY MANUAL COUNT 86 % High 38-82 [facility] Comment on above: Performed By: #### L [id number], [id number] ####Release Manager: KEMAR ABEBE ([id number])[facility] ([facility])[address] [place] [address] [place] SEGMENTED NEUTROPHILS (10*3/UL)IN BLOOD BY MANUAL COUNT 23.2 10*3/uL High 1.8-7.5 [facility] Comment on above: Performed By: #### L [id number], [id number] ####Release Manager: KEMAR ABEBE ([id number])[facility] [place] [address] [place] VARIANT LYMPHOCYTES (10*3/UL) IN BLOOD BY MANUAL COUNT 0.8 10*3/uL High <=0.0 [facility] Comment on above: Performed By: #### L [id number], [id number] ####Release Manager: KEMAR ABEBE ([id number])[facility] [place] [address] [place] VARIANT LYMPHOCYTES TOTAL PER COUNTED LEUKOCYTES BY MANUAL COUNT 6 Normal [facility] Comment on above: Performed By: #### L [id number], [id number] ####Release Manager: KEMAR ABEBE ([phone])[facility] ([facility])[address] Manual differential performe d Ql (Bld)on 10-18-2024 Atypical Lymphocytes Manual 6 [facility] Band form neutrophils (Bld) [#/Vol] 0.9 10*3/uL High NINF - 0.0 10*3/uL [facility] Band form neutrophils/100 WBC (Bld) 4 % High NINF - 0 % [facility] Bands Manual 7 [facility] Cells Counted Total (Bld) [#] 200 {cells} [facility] Interpretation and review of laboratory results Abnormal [facility] Leukocyte morphology finding Nom (Bld) Normal [facility] Lymphocytes (Bld) [#/Vol] 0.4 10*3/uL Low 1.0 - 4.3 10*3/uL [facility] Lymphocytes Manual 3 [facility] Lymphocytes/100 WBC (Bld) 2 % Low 15 - 45 % [facility] Metamyelocytes (Bld) [#/Vol] 0.1 10*3/uL High NINF - 0.0 10*3/uL [facility] Metamyelocytes Manual 1 [facility] Metamyelocytes/100 WBC (Bld) 1 % High NINF - 0 % [facility] Monocytes (Bld) [#/Vol] 1.4 10*3/uL High 0.0 - 0.9 10*3/uL [facility] Monocytes Manual 11 [facility] Monocytes/100 WBC (Bld) 6 % 5 - 13 % [facility] Neutrophils (Bld) [#/Vol] 23.2 10*3/uL High 1.8 - 7.5 10*3/uL [facility] Neutrophils Manual 172 [facility] Platelet morphology finding Nom (Bld) Normal [facility] RBC morphology finding Nom (Bld) Normal [facility] Segmented neutrophils/100 WBC (Bld) 86 % High 38 - 82 % [facility] Variant lymphocytes (Bld) [#/Vol] 0.8 10*3/uL High NINF - 0.0 10*3/uL [facility] Variant lymphocytes/100 WBC (Bld) 3 % High NINF - 0 % [facility] WBC corrected for nucl RBC (Bld) [#/Vol] 25.9 10*3/uL High 3.6 - 10.7 10*3/uL [facility] No Panel Informationon 10-18 Interpretation and review of laboratory results Normal [facility] [employer] [place] Sinus rhythm Left ventricular hypertrophy Anterior Q waves, possibly due to LVH Electronically Signed On 10-18-2024 23:06:53 EST by Sunitha Borja CV Sunitha Patel MD - 10/18/2024 IMPRESSION: Sinus rhythm Left ventricular hypertrophy Anterior Q waves, possibly due to LVH Electronically Signed On 10-18-2024 23:06:53 EST by Sunitha Borja [facility] Interpretation and review of laboratory results Abnormal [facility] [place] Performed by: [facility], [address] [place] [address] CLIA ID: [id number] [facility] [employer] [place] Troponin HS Delta, Baseline to Second [facility] Comment on above: A troponin delta gre [...] guidance. Troponin HS, Serial Second ng/L ng/L [facility] [employer] Troponin HS, Serial Baseline ng/L ng/L [facility] [employer] [place] Interpretation and review of laboratory results Normal [facility] [employer] [place] No Panel InformationOrdered By: Sunitha Borja on 10-18-2024 P [place] 68 degrees [employer] [facility] Work Phone: [place] Interval 185 ms [email or web address] Phone: QRS [place] -37 degrees [employer] Work Phone: QRSD Interval 108 ms [email or web address] Phone: QT Interval 386 ms [employer] Work Phone: QTC Interval 489 ms [email or web address] Phone: T Wave [place] 47 degrees [email or web address] Phone: [phone] [email or web address] Phone: URINE CULTUREon 10-18-2024 Bacteria identified Cx Nom (U) Normal [facility] Comment on above: Performed By: #### L [id number] ####Release Manager: MARCELA LUCERO ([id number])[facility] (SACLAB)[address]#### [id number] ####Release Manager: KEMAR ABEBE ([phone])[facility] ([facility])[address] US ABDOMEN LIMITEDon 024 US ABDOMEN LIMITED Normal [facility] US Abdomen limitedon 024 1. Cholestasis, cholelithiasis, gallbladder wall thickening, with probable mural edema and trace pericholecystic fluid, as well as positive sonographic Caldwell's sign, suspicious for postinflammatory change, including acute cholecystitis. Clinical correlation and follow-up as indicated. Report Dictated on Electronically Signed By: Joel Haddad MD Electronically Signed Date/Time: 10/18/2024 8:21 PM [facility] [email or web address] Patient Name: WILL ALVARADO : 1965 [...] adequately visualized due to overlying bowel gas. [facility] Joel Haddad MD - 10/18/2024 Patient [...] Electronically Signed Date/Time: 10/18/2024 8:21 PM EST [facility] Radiology Study observation (narrative) [facility] US Abdomen limitedOrdered By : Joel Haddad on 10-18-2024 [employer] Work Phone: Vital signsOrdered By: Sunitha Borja on 10-18-2024 Heart rate 96 /min bpm [email or web address] Phone: 36on 10-17-2024 36 [facility] and spoke with nurse laney. I relayed the message below and she verbalized understanding. Normal [facility] 36 A lot of varibility. Many of results are adequate, many high. No clear trend to change doses thank you Normal [facility] 36on 10-16-2024 36 Patient's BGL Normal [facility] 36on 10-10-2024 36 Faxed recommendation to [facility]([phone]) Normal [facility] 36on 10-09-2024 36 Keep doses the same for now thank you Normal [facility] 36 Patient's BGL Normal [facility] 36on 10-04-2024 36 Patient's BGL Normal [facility] 36on 09-26-2024 36 Notified pt's nurse at his facilities. Normal [facility] 36on 09-25-2024 36 A lot of variability please keep doses the same thank you Normal [facility] 36 Patient's BGL Normal [facility] Hemoglobin A1con 09-22-2024 HbA1c (Bld) [Mass fraction] 7.6 % High 3.8-5.6 [facility] Comment on above: Order Comment: 103-1 Result Comment: Norm al < 5.7 % Prediabetic 5.7 - 6.4 % Diabetic >or= 6.5 % Please note range changes. Performed By: #### L 100.0500, [id number] #### [facility] [address] [place], [place], [id number] Hemoglobin A1c percentageOrd ered By: Jared Guzman on 09-22-2024 HbA1c (Bld) [Mass fraction] 7.6 % High 3.8-5.6 [facility] Comment on above: Normal < 5.7 % Predi abetic 5.7 - 6.4 % Diabetic >or= 6.5 % Please note range changes. 36on 09-20-2024 36 Faxed recommendation to [facility]. Thank you! Normal [facility] 36on 09-19-2024 36 Very high doses with variability and history severe hypoglycemia- would not change doses for now Normal [facility] 36 Patient's BGL Normal [facility] 36on 09-13-2024 36 [facility] [phone] Normal [facility] Laboratory - Chemistry and C hemistry - challengeon 01-27-2024 Glucose [Mass/Vol] 143 mg/dL High 70 - 100 mg/dL [facility] No Panel Informationon 01-26 Interpretation and review of laboratory results Abnormal [facility] Performed by: [facility], [address] [place] [id number] CLIA ID: [id number] [facility] Radiology Study observation (narrative) [facility] Laboratory - Chemistry and C hemistry - challengeon 01-26-2024 Glucose [Mass/Vol] 101 mg/dL High 70 - 100 mg/dL [facility] Glucose [Mass/Vol] 111 mg/dL High 70 - 100 mg/dL [facility] Glucose [Mass/Vol] 102 mg/dL High 70 - 100 mg/dL [facility] No Panel Informationon 01-25 Interpretation and review of laboratory results Abnormal [facility] Performed by: [facility], [address] [place] [address] CLIA ID: [id number] [facility] Interpretation and review of laboratory results Abnormal [facility] Performed by: [facility], [address] [place] [address] CLIA ID: [id number] [facility] Interpretation and review of laboratory results Abnormal [facility] Performed by: [facility], [address] [place] [address] CLIA ID: [id number] [facility] Radiology Study observation (narrative) [facility] Radiology Study observation (narrative) [facility] Radiology Study observation (narrative) [facility] CBC W Auto Differential pane l (Bld)on 01-22-2024 Basophils (Bld) [#/Vol] 0.1 10*3/uL 0.0 - 0.2 10*3/uL [facility] Basophils/100 WBC (Bld) 0.5 % 0.0 - 2.0 % [facility] Eosinophils (Bld) [#/Vol] 0.1 10*3/uL 0.0 - 0.5 10*3/uL [facility] Eosinophils/100 WBC (Bld) 0.8 % 0.0 - 6.0 % [facility] Erythrocyte distribution width (RBC) [Ratio] 14.3 % 11.5 - 15.0 % [facility] Hematocrit (Bld) [Volume fraction] 35.6 % Male: 40.0-52.0 ; Female: 35.0-47.0 [facility] Hemoglobin (Bld) [Mass/Vol] 11.3 g/dL Low 11.7 - 18.0 g/dL [facility] Immature granulocytes (Bld) [#/Vol] 0.1 10*3/uL High NINF - 0.1 10*3/uL [facility] Immature granulocytes/100 WBC (Bld) 0.7 % 0.0 - 2.0 % [facility] Interpretation and review of laboratory results Abnormal [facility] Lymphocytes (Bld) [#/Vol] 1.4 10*3/uL 1.0 - 4.3 10*3/uL [facility] [place] Lymphocytes/100 WBC (Bld) 14.3 % Low 15.0 - 45.0 % [facility] MCH (RBC) [Entitic mass] 27.5 pg 26.0 - 34.0 pg [facility] MCHC (RBC) [Mass/Vol] 31.7 % 30.5 - 36.0 % [facility] MCV (RBC) [Entitic vol] 86.6 fL 77.0 - 99.0 fL [facility] Monocytes (Bld) [#/Vol] 0.6 10*3/uL 0.0 - 0.9 10*3/uL [facility] Monocytes/100 WBC (Bld) 5.9 % 5.0 - 13.0 % [facility] Neutrophils (Bld) [#/Vol] 7.8 10*3/uL High 1.8 - 7.5 10*3/uL [facility] Neutrophils/100 WBC (Bld) 77.8 % 38.0 - 82.0 % [facility] Nucleated RBC/100 WBC (Bld) [Ratio] 0.0 % [facility] [place] Platelet mean volume (Bld) [Entitic vol] 10.3 fL 9.0 - 12.7 fL [facility] [place] Platelets (Bld) [#/Vol] 511 10*3/uL High 140 - 440 10*3/uL [facility] RBC (Bld) [#/Vol] 4.11 10*6/uL Male: 4.40-5.90; Female: 3.80-5.[address] [facility] WBC (Bld) [#/Vol] 10.0 10*3/uL 3.6 - 10.7 10*3/uL [facility] CT Abdomen and Pelvis W [...] MD Electronically Signed Date/Time: 01/22/2024 4:54 AM [facility] [employer] RADIOLOGY SYSTEM Patient Name: WILL ALVARADO : 1965 [facility]#: [id number] Exam Date/Time: 01/22/2024 04:15 Procedure: CT ABDOMEN [...] No evidence of acute fracture or dislocation. [facility] RADIOLOGY SYSTEM Brandon Morgan MD - 01/22/2024 [facility] Name: [facility]TO : 1965 [id number] Exam Date/Time: 01/22/2024 04:15 Procedure: CT ABDOMEN [...] Electronically Signed Date/Time: 01/22/2024 4:54 AM EDT [facility] Radiology Study observation (narrative) [facility] CT Abdomen and Pelvis W cont rast IVOrdered By: Brandon Morgan on 01-22-2024 [employer] Work Phone: Comprehensive metabolic 1998 panelon 01-22-2024 Albumin [Mass/Vol] 4.2 g/dL 3.5 - 5.0 g/dL [facility] ALP [Catalytic activity/Vol] 121 U/L 38 - 126 U/L [facility] ALT [Catalytic activity/Vol] 32 U/L Male: 0-49 U/L; Female: 0-34 U/L [facility] Anion gap [Moles/Vol] 11 mmol/L 3 - 13 mmol/L [facility] AST [Catalytic activity/Vol] 26 U/L 15 - 46 U/L [facility] Bilirubin [Mass/Vol] 0.5 mg/dL 0.2 - 1 .3 mg/dL [facility] Calcium [Mass/Vol] 9.6 mg/dL 8.4 - 10. 4 mg/dL [facility] Chloride [Moles/Vol] 100 mmol/L 98 - 10 7 mmol/L [facility] CO2 [Moles/Vol] 25 mmol/L 22 - 30 mmol/L [facility] Creatinine [Mass/Vol] 0.61 mg/dL Male: 0.66-1.25 mg/dL; Female: 0.52-1.04 mg/dL [facility] GFR/1.73 sq M.predicted MDRD (S/P/Bld) [Vol rate/Area] - PINF [facility] Comment on above: Calculation based on the Chronic Kidney Disease Epidemiology Collaboration (CKD-EPI) equation refit without adjustment for race Glucose [Mass/Vol] 81 mg/dL 70 - 100 mg/dL [facility] Potassium [Moles/Vol] 4.0 mmol/L 3.5 - 5.1 mmol/L [facility] Protein [Mass/Vol] 7.5 g/dL 6.3 - 8.2 g/dL [facility] Sodium [Moles/Vol] 136 mmol/L 135 - 145 mmol/L [facility] Urea nitrogen [Mass/Vol] 13 mg/dL Male: 9-20 mg/dL; Female: 7-17 mg/dL [facility] Laboratory - Chemistry and C hemistry - challengeon 01-22-2024 Lactate [Moles/Vol] 0.7 mmol/L 0.7 - 2. 0 mmol/L [facility] Lipase [Catalytic activity/Vol] 41 U/L 23 - 300 U/L [facility] Lipase [Catalytic activity/V ol]on 01-22-2024 Interpretation and review of laboratory results Normal [facility] No Panel Informationon 01-21 Interpretation and review of laboratory results Normal [facility] Urinalysis complete panel (U )Ordered By: Erickson Olmedo on 01-22-2024 Bacteria LM.HPF (Urine sed) [#/Area] Few Abnormal Negative /HPF [facility] Bilirubin Ql (U) Negative Negative mg/dL [facility] Clarity (U) Clear Clear [facility] Color (U) Light Yellow Lt. Yellow [facility] Epithelial cells.squamous LM.HPF (Urine sed) [#/Area] 0-[address] [facility] Glucose Ql (U) Normal Normal (<70) mg/dL [facility] Hemoglobin Ql (U) 1.0 mg/dL Abnormal Negative [facility] Interpretation and review of laboratory results Abnormal [facility] Ketones (U) [Mass/Vol] Negative Negat bernard mg/dL [facility] Leukocyte esterase Test strip Ql (U) 75 Abnormal Negative Kat/uL [facility] Mucus LM.HPF (Urine sed) [#/Area] Few Negative /LPF [facility] Nitrite Ql (U) Negative Negative [facility] pH (U) 8.0 [pH] 5.0 - 8.[address] [facility] Protein (U) [Mass/Vol] 100 mg/dL Abnormal Negative [facility] RBC LM.HPF (Urine sed) [#/Area] 26-[address] [facility] Specific gravity (U) [Rel density] 1.013 1.005 - 1.[address] [facility] Urobilinogen (U) [Mass/Vol] Normal Normal (0-1) mg/dL [facility] WBC LM.HPF (Urine sed) [#/Area] 6-10 Abnormal [facility] Basophil percentageOrdered B y: Jared Guzman on 01-20-2024 Chloride [Moles/Vol] 104 mmol/L 98-107 [facility] Glucose [Mass/Vol] 159 mg/dL 74-106 [facility] Comment on above: Fasting Glucose resu lt greater than or equal to 126 mg/dL suggests DIABETES MELLITUS per A.D.A. criteria. Hemoglobin (Bld) [Mass/Vol] 9.6 g/dL 12.0-15.0 [facility] Potassium [Moles/Vol] 4.2 mmol/L 3.5-5.1 [facility] Sodium [Moles/Vol] 137 mmol/L 136-145 [facility] WBC (Bld) [#/Vol] 7.7 10*3/uL 4.4-11.0 [facility] Determination of erythrocyte mean corpuscular volume (MCV)Ordered By: Jared Guzman on 01-20-2024 MCV (RBC) [Entitic vol] 88.3 fL 81-99 [facility] Erythrocyte distribution wid th ratioOrdered By: Jared Guzman on 01-20-2024 Erythrocyte distribution width (RBC) [Ratio] 14.5 % 11.6-14.6 [facility] Erythrocyte distribution wid th standard deviationOrdered By: Jared Guzman on 01-20-2024 Erythrocyte distribution width (RBC) [Entitic vol] 46.4 fL 35.1-43.9 [facility] Hematocrit Auto (Bld) [Volum e fraction]Ordered By: Jared Guzman on 01-20-2024 Hematocrit (Bld) [Volume fraction] 30.9 % 37-47 [facility] Laboratory - Chemistry and C hemistry - challengeOrdered By: Jared Guzman on 01-20-2024 CO2 [Moles/Vol] 26.0 mmol/L 21.0-32.0 [facility] Urea nitrogen/Creatinine [Mass ratio] 17.5 mg/mg 10-20 [facility] Laboratory - Hematology and Cell countsOrdered By: Jared Guzman on 01-20-2024 MCH (RBC) [Entitic mass] 27.4 pg 27.0-32.0 [facility] MCHC (RBC) [Mass/Vol] 31.1 g/dL 32-36 [facility] Platelet mean volume (Bld) [Entitic vol] 10.0 fL 6.2-12.0 [facility] Platelets (Bld) [#/Vol] 411 10*3/uL 150-450 [facility] No Panel InformationOrdered By: Jared Guzman on 01-20-2024 Estimated GFR (MDRD) Amer 95 mL/min >60 [facility] Comment on above: GFR Calc Estimated GFR (MDRD) Non-Af Amer 78 mL/min >60 [facility] Comment on above: Non- GFR Calc RBC Auto (Bld) [#/Vol]Ordere d By: Jared Guzman on 01-20-2024 RBC (Bld) [#/Vol] 3.50 10*6/uL 4.2-5.[address] [facility] Serum or plasma calcium mauricio urement (mass/volume)Ordered By: Jared Guzman on 01-20-2024 Calcium [Mass/Vol] 8.8 mg/dL 8.5-10.1 [facility] Serum or plasma creatinine m easurement (mass/volume)Ordered By: Jared Guzman on 01-20-2024 Creatinine [Mass/Vol] 0.80 mg/dL 0.55-1.02 [facility] Comment on above: The validity of the calculated GFR & GFRAA in patients over 70 years has not been determined. Clinical correlation is essential. Serum or plasma urea nitroge n measurement (mass/volume)Ordered By: Jared Guzman on 01-20-2024 Urea nitrogen [Mass/Vol] 14 mg/dL 7-18 [facility] Thin prep Papanicolaou smear with manual screeningOrdered By: Jared Guzman on 01-20-2024 Thin prep Papanicolaou smear with manual screening 7 5-15 [facility] Basophil percentageOrdered B y: Jared Guzman on 01-17-2024 Bilirubin [Mass/Vol] 0.50 mg/dL 0.20-1.00 [facility] Comment on above: For patients on eltr ombopag therapy, use of [employer] [place] TBIL is not recommended. Chloride [Moles/Vol] 102 mmol/L 98-107 [facility] Glucose [Mass/Vol] 325 mg/dL 74-106 [facility] Comment on above: Glucose result great er than or equal to 200 mg/dLsuggests DIABETES MELLITUS per A.D.A. criteria. Hemoglobin (Bld) [Mass/Vol] 9.7 g/dL 12.0-15.0 [facility] Potassium [Moles/Vol] 4.4 mmol/L 3.5-5.1 [facility] Protein [Mass/Vol] 6.2 g/dL 6.4-8.2 [facility] Sodium [Moles/Vol] 134 mmol/L 136-145 [facility] WBC (Bld) [#/Vol] 7.1 10*3/uL 4.4-11.0 [facility] Determination of erythrocyte mean corpuscular volume (MCV)Ordered By: Jared Guzman on 01-17-2024 MCV (RBC) [Entitic vol] 88.0 fL 81-99 [facility] Erythrocyte distribution wid th ratioOrdered By: Jared Guzman on 01-17-2024 Erythrocyte distribution width (RBC) [Ratio] 14.2 % 11.6-14.6 [facility] [facility] Erythrocyte distribution wid th standard deviationOrdered By: Jared Guzman on 01-17-2024 Erythrocyte distribution width (RBC) [Entitic vol] 45.7 fL 35.1-43.9 [facility] Hematocrit Auto (Bld) [Volum e fraction]Ordered By: Jared Guzman on 01-17-2024 Hematocrit (Bld) [Volume fraction] 31.5 % 37-47 [facility] Laboratory - Chemistry and C hemistry - challengeOrdered By: Jared Guzman on 01-17-2024 Albumin/Globulin [Mass ratio] 0.9 {ratio} 0.9-2.4 [facility] ALP [Catalytic activity/Vol] 142 U/L 45-117 [facility] ALT [Catalytic activity/Vol] 22 U/L 13-56 [facility] CO2 [Moles/Vol] 24.0 mmol/L 21.0-32.0 [facility] Globulin (S) [Mass/Vol] 3.3 g/dL 2.2-4.2 [facility] Urea nitrogen/Creatinine [Mass ratio] 19.2 mg/mg 10-20 [facility] Laboratory - Hematology and Cell countsOrdered By: Jared Guzman on 01-17-2024 MCH (RBC) [Entitic mass] 27.1 pg 27.0-32.0 [facility] MCHC (RBC) [Mass/Vol] 30.8 g/dL 32-36 [facility] Platelet mean volume (Bld) [Entitic vol] 10.5 fL 6.2-12.0 [facility] Platelets (Bld) [#/Vol] 372 10*3/uL 150-450 [facility] No Panel InformationOrdered By: Jared Guzman on 01-17-2024 Estimated GFR (MDRD) Amer 85 mL/min >60 [facility] Comment on above: GFR Calc Estimated GFR (MDRD) Non-Af Amer 70 mL/min >60 [facility] Comment on above: Non- GFR Calc RBC Auto (Bld) [#/Vol]Ordere d By: Jared Guzman on 01-17-2024 RBC (Bld) [#/Vol] 3.58 10*6/uL 4.2-5.[address] [facility] Serum or plasma calcium mauricio urement (mass/volume)Ordered By: Jared Guzman on 01-17-2024 Calcium [Mass/Vol] 8.6 mg/dL 8.5-10.1 [facility] Serum or plasma creatinine m easurement (mass/volume)Ordered By: Jared Guzman on 01-17-2024 Creatinine [Mass/Vol] 0.88 mg/dL 0.55-1.02 [facility] Comment on above: The validity of the calculated GFR & GFRAA in patients over 70 years has not been determined. Clinical correlation is essential. Serum or plasma urea nitroge n measurement (mass/volume)Ordered By: Jared Guzman on 01-17-2024 Urea nitrogen [Mass/Vol] 17 mg/dL 7-18 [facility] Thin prep Papanicolaou smear with manual screeningOrdered By: Jared Guzman on 01-17-2024 Thin prep Papanicolaou smear with manual screening 2.9 g/dL 3.2-5.0 [facility] Thin prep Papanicolaou smear with manual screening 13 U/L 15-37 [facility] Thin prep Papanicolaou smear with manual screening 8 5-15 [facility] Whole blood hemoglobin A1c/t otal hemoglobin ratio (mass fraction)Ordered By: Jared Guzman on 01-17-2024 HbA1c (Bld) [Mass fraction] 8.1 % 3.8-5.6 [facility] Comment on above: Normal < 5.7 % Predi abetic 5.7 - 6.4 % Diabetic >or= 6.5 % Please note range changes. Basophil percentageOrdered B y: Jared Guzman on 01-13-2024 Chloride [Moles/Vol] 107 mmol/L 98-107 [facility] Cholesterol [Mass/Vol] 147 mg/dL <200 [facility] Comment on above: <200 mg/dL Desirable 200-240 mg/dL Borderline >240 mg/dL High Risk Glucose [Mass/Vol] 72 mg/dL 74-106 [facility] Hemoglobin (Bld) [Mass/Vol] 9.4 g/dL 12.0-15.0 [facility] Potassium [Moles/Vol] 3.9 mmol/L 3.5-5.1 [facility] Sodium [Moles/Vol] 141 mmol/L 136-145 [facility] Triglyceride [Mass/Vol] 137 mg/dL <199 [facility] Comment on above: The drugs N-Acetylcy steine and Metamizole may falsely depress this assay.Serum Triglycerides Reference Interval Normal <150 mg/dL Borderline high 150 - 199 mg/dL High 200 - 499 mg/dL Very High > or = 500 mg/dL WBC (Bld) [#/Vol] 7.1 10*3/uL 4.4-11.0 [facility] Determination of erythrocyte mean corpuscular volume (MCV)Ordered By: Jared Guzman on 01-13-2024 MCV (RBC) [Entitic vol] 87.4 fL 81-99 [facility] Erythrocyte distribution wid th ratioOrdered By: Jared Guzman on 01-13-2024 Erythrocyte distribution width (RBC) [Ratio] 14.6 % 11.6-14.6 [facility] Erythrocyte distribution wid th standard deviationOrdered By: Jared Guzman on 01-13-2024 Erythrocyte distribution width (RBC) [Entitic vol] 46.7 fL 35.1-43.9 [facility] Hematocrit Auto (Bld) [Volum e fraction]Ordered By: Jared Guzman on 01-13-2024 Hematocrit (Bld) [Volume fraction] 29.9 % 37-47 [facility] Laboratory - Chemistry and C hemistry - challengeOrdered By: Jared Guzman on 01-13-2024 Cholesterol in HDL [Mass/Vol] 37 mg/dL >40 [facility] Comment on above: The drugs N-Acetylcy steine and Metamizole may falsely depress this assay. Reference Range HDL <40 mg/dL Low HDL Cholesterol HDL >or= 60 mg/dL High HDL Cholesterol Cholesterol in LDL [Mass/Vol] 83 mg/dL 0-130 [facility] CO2 [Moles/Vol] 26.0 mmol/L 21.0-32.0 [facility] Urea nitrogen/Creatinine [Mass ratio] 30.8 mg/mg 10-20 [facility] Laboratory - Hematology and Cell countsOrdered By: Jared Guzman on 01-13-2024 MCH (RBC) [Entitic mass] 27.5 pg 27.0-32.0 [facility] MCHC (RBC) [Mass/Vol] 31.4 g/dL 32-36 [facility] Platelet mean volume (Bld) [Entitic vol] 9.8 fL 6.2-12.0 [facility] Platelets (Bld) [#/Vol] 380 10*3/uL 150-450 [facility] No Panel InformationOrdered By: Jared Guzman on 01-13-2024 Estimated GFR (MDRD) Amer 129 mL/min >60 [facility] Comment on above: GFR Calc Estimated GFR (MDRD) Non-Af Amer 106 mL/min >60 [facility] Comment on above: Non- GFR Calc VLDL Cholesterol 27 mg/dL 5-40 [facility] RBC Auto (Bld) [#/Vol]Ordere d By: Jared Guzman on 01-13-2024 RBC (Bld) [#/Vol] 3.42 10*6/uL 4.2-5.[address] [facility] Serum or plasma calcium mauricio urement (mass/volume)Ordered By: Jared Guzman on 01-13-2024 Calcium [Mass/Vol] 8.7 mg/dL 8.5-10.1 [facility] Serum or plasma creatinine m easurement (mass/volume)Ordered By: Jared Guzman on 01-13-2024 Creatinine [Mass/Vol] 0.62 mg/dL 0.55-1.02 [facility] Comment on above: The validity of the calculated GFR & GFRAA in patients over 70 years has not been determined. Clinical correlation is essential. Serum or plasma urea nitroge n measurement (mass/volume)Ordered By: Jared Guzman on 01-13-2024 Urea nitrogen [Mass/Vol] 19 mg/dL 7-18 [facility] Thin prep Papanicolaou smear with manual screeningOrdered By: Jared Guzman on 01-13-2024 Thin prep Papanicolaou smear with manual screening 8 5-15 [facility] Basophil percentageOrdered B y: Jared Guzman on 12-31-2023 Chloride [Moles/Vol] 101 mmol/L 98-107 [facility] Glucose [Mass/Vol] 87 mg/dL 74-106 [facility] Hemoglobin (Bld) [Mass/Vol] 10.1 g/dL 12.0-15.0 [facility] Potassium [Moles/Vol] 4.8 mmol/L 3.5-5.1 [facility] Sodium [Moles/Vol] 133 mmol/L 136-145 [facility] WBC (Bld) [#/Vol] 11.6 10*3/uL 4.4-11.[address] [facility] Determination of erythrocyte mean corpuscular volume (MCV)Ordered By: Jared Guzman on 12-31-2023 MCV (RBC) [Entitic vol] 87.8 fL 81-99 [facility] Erythrocyte distribution wid th ratioOrdered By: Jared Guzman on 12-31-2023 Erythrocyte distribution width (RBC) [Ratio] 14.1 % 11.6-14.6 [facility] Erythrocyte distribution wid th standard deviationOrdered By: Jared Guzman on 12-31-2023 Erythrocyte distribution width (RBC) [Entitic vol] 45.6 fL 35.1-43.9 [facility] Hematocrit Auto (Bld) [Volum e fraction]Ordered By: Jared Guzman on 12-31-2023 Hematocrit (Bld) [Volume fraction] 32.5 % 37-47 [facility] Laboratory - Chemistry and C hemistry - challengeOrdered By: Jared Guzman on 12-31-2023 CO2 [Moles/Vol] 24.0 mmol/L 21.0-32.0 [facility] Urea nitrogen/Creatinine [Mass ratio] 12.1 mg/mg 10-20 [facility] Laboratory - Hematology and Cell countsOrdered By: Jared Guzman on 12-31-2023 MCH (RBC) [Entitic mass] 27.3 pg 27.0-32.0 [facility] MCHC (RBC) [Mass/Vol] 31.1 g/dL 32-36 [facility] Platelet mean volume (Bld) [Entitic vol] 10.1 fL 6.2-12.0 [facility] Platelets (Bld) [#/Vol] 413 10*3/uL 150-450 [facility] No Panel InformationOrdered By: Jared Guzman on 12-31-2023 Estimated GFR (MDRD) Amer 16 mL/min >60 [facility] Comment on above: GFR Calc Estimated GFR (MDRD) Non-Af Amer 13 mL/min >60 [facility] Comment on above: Non- GFR Calc RBC Auto (Bld) [#/Vol]Ordere d By: Jared Guzman on 12-31-2023 RBC (Bld) [#/Vol] 3.70 10*6/uL 4.2-5.[address] [facility] Serum or plasma calcium mauricio urement (mass/volume)Ordered By: Jared Guzman on 12-31-2023 Calcium [Mass/Vol] 8.9 mg/dL 8.5-10.1 [facility] Serum or plasma creatinine m easurement (mass/volume)Ordered By: Jared Guzman on 12-31-2023 Creatinine [Mass/Vol] 3.80 mg/dL 0.55-1.02 [facility] Comment on above: The validity of the calculated GFR & GFRAA in patients over 70 years has not been determined. Clinical correlation is essential. Serum or plasma urea nitroge n measurement (mass/volume)Ordered By: Jared Guzman on 12-31-2023 Urea nitrogen [Mass/Vol] 46 mg/dL 7-18 [facility] Thin prep Papanicolaou smear with manual screeningOrdered By: Jared Guzman on 12-31-2023 Thin prep Papanicolaou smear with manual screening 8 5-15 [facility] Basophil percentageOrdered B y: Jared Guzman on 12-30-2023 Chloride [Moles/Vol] 103 mmol/L 98-107 [facility] Glucose [Mass/Vol] 116 mg/dL 74-106 [facility] Comment on above: Fasting Glucose resu lt from 100 to 125 mg/dL suggests IMPAIRED HOMEOSTASIS per A.D.A. criteria. Hemoglobin (Bld) [Mass/Vol] 10.6 g/dL 12.0-15.0 [facility] Potassium [Moles/Vol] 4.4 mmol/L 3.5-5.1 [facility] Sodium [Moles/Vol] 133 mmol/L 136-145 [facility] WBC (Bld) [#/Vol] 13.1 10*3/uL 4.4-11.[address] [facility] Determination of erythrocyte mean corpuscular volume (MCV)Ordered By: Jared Guzman on 12-30-2023 MCV (RBC) [Entitic vol] 86.8 fL 81-99 [facility] Erythrocyte distribution wid th ratioOrdered By: Jared Guzman on 12-30-2023 Erythrocyte distribution width (RBC) [Ratio] 13.6 % 11.6-14.6 [facility] Erythrocyte distribution wid th standard deviationOrdered By: Jared Guzman on 12-30-2023 Erythrocyte distribution width (RBC) [Entitic vol] 43.0 fL 35.1-43.9 [facility] Hematocrit Auto (Bld) [Volum e fraction]Ordered By: Jared Guzman on 12-30-2023 Hematocrit (Bld) [Volume fraction] 34.2 % 37-47 [facility] Laboratory - Chemistry and C hemistry - challengeOrdered By: Jared Guzman on 12-30-2023 CO2 [Moles/Vol] 24.0 mmol/L 21.0-32.0 [facility] Urea nitrogen/Creatinine [Mass ratio] 19.3 mg/mg 10-20 [facility] Laboratory - Hematology and Cell countsOrdered By: Jared Guzman on 12-30-2023 MCH (RBC) [Entitic mass] 26.9 pg 27.0-32.0 [facility] MCHC (RBC) [Mass/Vol] 31.0 g/dL 32-36 [facility] Platelet mean volume (Bld) [Entitic vol] 10.3 fL 6.2-12.0 [facility] Platelets (Bld) [#/Vol] 434 10*3/uL 150-450 [facility] No Panel InformationOrdered By: Jared Guzman on 12-30-2023 Estimated GFR (MDRD) Amer 42 mL/min >60 [facility] Comment on above: GFR Calc Estimated GFR (MDRD) Non-Af Amer 35 mL/min >60 [facility] Comment on above: Non- GFR Calc RBC Auto (Bld) [#/Vol]Ordere d By: Jared Guzman on 12-30-2023 RBC (Bld) [#/Vol] 3.94 10*6/uL 4.2-5.[address] [facility] Serum or plasma calcium mauricio urement (mass/volume)Ordered By: Jared Guzman on 12-30-2023 Calcium [Mass/Vol] 9.4 mg/dL 8.5-10.1 [facility] Serum or plasma creatinine m easurement (mass/volume)Ordered By: Jared Guzman on 12-30-2023 Creatinine [Mass/Vol] 1.61 mg/dL 0.55-1.02 [facility] Comment on above: The validity of the calculated GFR & GFRAA in patients over 70 years has not been determined. Clinical correlation is essential. Serum or plasma urea nitroge n measurement (mass/volume)Ordered By: Jared Guzman on 12-30-2023 Urea nitrogen [Mass/Vol] 31 mg/dL 7-18 [facility] Thin prep Papanicolaou smear with manual screeningOrdered By: Jared Guzman on 12-30-2023 Thin prep Papanicolaou smear with manual screening 6 5-15 [facility] Basic metabolic 1998 panelon 12-29-2023 Anion gap [Moles/Vol] 8 mmol/L 3 - 13 mmol/L [facility] Calcium [Mass/Vol] 9.2 mg/dL 8.4 - 10. 4 mg/dL [facility] Chloride [Moles/Vol] 99 mmol/L 98 - 10 7 mmol/L [facility] CO2 [Moles/Vol] 21 mmol/L Low 22 - 30 mmol/L [facility] Creatinine [Mass/Vol] 0.70 mg/dL Male: 0.66-1.25 mg/dL; Female: 0.52-1.04 mg/dL [facility] GFR/1.73 sq M.predicted MDRD (S/P/Bld) [Vol rate/Area] [facility] Comment on above: Calculation based on the Chronic Kidney Disease Epidemiology Collaboration (CKD-EPI) equation refit without adjustment for race Glucose [Mass/Vol] 341 mg/dL High 70 - 100 mg/dL [facility] Interpretation and review of laboratory results Abnormal [facility] Potassium [Moles/Vol] 5.3 mmol/L High 3.5 - 5.1 mmol/L [facility] Sodium [Moles/Vol] 128 mmol/L Low 135 - 145 mmol/L [facility] Urea nitrogen [Mass/Vol] 28 mg/dL Male: 9-20 mg/dL; Female: 7-17 mg/dL [facility] Basic metabolic 1998 panelOr dered By: Abner Vieyra on 12-29-2023 Anion gap [Moles/Vol] 7 mmol/L 3 - 13 mmol/L [facility] Calcium [Mass/Vol] 9.2 mg/dL 8.4 - 10. 4 mg/dL [facility] Chloride [Moles/Vol] 99 mmol/L 98 - 10 7 mmol/L [facility] CO2 [Moles/Vol] 23 mmol/L 22 - 30 mmol/L [facility] Creatinine [Mass/Vol] 0.79 mg/dL Male: 0.66-1.25 mg/dL; Female: 0.52-1.04 mg/dL [facility] GFR/1.73 sq M.predicted MDRD (S/P/Bld) [Vol rate/Area] 87.4 mL/min/{1.73_m2} [facility] Comment on above: Calculation based on the Chronic Kidney Disease Epidemiology Collaboration (CKD-EPI) equation refit without adjustment for race Glucose [Mass/Vol] 284 mg/dL High 70 - 100 mg/dL [facility] Interpretation and review of laboratory results Abnormal [facility] Potassium [Moles/Vol] 5.7 mmol/L High 3.5 - 5.1 mmol/L [facility] Sodium [Moles/Vol] 129 mmol/L Low 135 - 145 mmol/L [facility] Urea nitrogen [Mass/Vol] 36 mg/dL Male: 9-20 mg/dL; Female: 7-17 mg/dL [facility] CBC W Auto Differential pane l (Bld)Ordered By: Laney Rader on 12-29-2023 Basophils (Bld) [#/Vol] 0.1 10*3/uL 0.0 - 0.2 10*3/uL [facility] Basophils/100 WBC (Bld) 0.8 % 0.0 - 2.0 % [facility] Eosinophils (Bld) [#/Vol] 0.1 10*3/uL 0.0 - 0.5 10*3/uL [facility] Eosinophils/100 WBC (Bld) 0.7 % Low 1.0 - 6.0 % [facility] Erythrocyte distribution width (RBC) [Ratio] 14.5 % 11.5 - 14.5 % [facility] Hematocrit (Bld) [Volume fraction] 35.9 % Male: 40.0-52.0 %; Female: 35.0-47.0 % [facility] Hemoglobin (Bld) [Mass/Vol] 11.8 g/dL 11.7 - 18.0 g/dL [facility] Interpretation and review of laboratory results Abnormal [facility] Lymphocytes (Bld) [#/Vol] 1.6 10*3/uL 1.0 - 4.3 10*3/uL [facility] Lymphocytes/100 WBC (Bld) 12.3 % Low 20.0 - 40.0 % [facility] MCH (RBC) [Entitic mass] 27.4 pg 26.0 - 34.[address] [facility] MCHC (RBC) [Mass/Vol] 32.9 % 32.0 - 36.0 % [facility] MCV (RBC) [Entitic vol] 83.3 fL 80.0 - 98.0 fL [facility] Monocytes (Bld) [#/Vol] 0.6 10*3/uL 0.0 - 0.8 10*3/uL [facility] Monocytes/100 WBC (Bld) 4.9 % 2.0 - 10.0 % [facility] Neutrophils (Bld) [#/Vol] 10.4 10*3/uL High 1.8 - 7.0 10*3/uL [facility] Neutrophils/100 WBC (Bld) 81.3 % High 40.0 - 80.0 % [facility] Nucleated RBC/100 WBC (Bld) [Ratio] 0.0 % [facility] Platelet mean volume (Bld) [Entitic vol] 7.9 fL 7.4 - 12.4 fL [facility] Platelets (Bld) [#/Vol] 388 10*3/uL 140 - 440 10*3/uL [facility] RBC (Bld) [#/Vol] 4.31 10*6/uL Male: 4.40-5.90; Female: 3.80-5.20 [facility] WBC (Bld) [#/Vol] 12.8 10*3/uL High 3.6 - 10.7 10*3/uL [facility] Laboratory - Chemistry and C hemistry - challengeon 12-29-2023 Glucose [Mass/Vol] 319 mg/dL High 70 - 100 mg/dL [facility] Glucose [Mass/Vol] 346 mg/dL High 70 - 100 mg/dL [facility] Glucose [Mass/Vol] 279 mg/dL High 70 - 100 mg/dL [facility] Beta hydroxybutyrate [Mass/Vol] 6.84 mg/dL High 0.20 - 2.81 mg/dL [facility] No Panel Informationon 12-29 P [place] 40 degrees [facility] [place] Interval 168 ms [facility] QRS [place] -37 degrees [facility] QRSD Interval 117 ms [facility] QT Interval 414 ms [facility] QTC Interval 479 ms [facility] T Wave [place] 23 degrees [facility] Sinus rhythm Nonspecific IVCD with LAD Left ventricular hypertrophy Electronically Signed On 12-29-2023 06:52:01 EST by Edwin Bustos CV Edwin Cook MD - 12/29/2023 IMPRESSION: Sinus rhythm Nonspecific IVCD with LAD Left ventricular hypertrophy Electronically Signed On 12-29-2023 06:52:01 EST by Edwin Bustos [facility] Interpretation and review of laboratory results Abnormal [facility] Performed by: [email or web address], [address] [place], [place] [id number] CLIA ID: [id number] [facility] Interpretation and review of laboratory results Abnormal [facility] Performed by: [email or web address], [address] [place] [id number] CLIA ID: [id number] [facility] Interpretation and review of laboratory results Abnormal [facility] Performed by: [facility], [address] [place] [address], [place] [address] CLIA ID: [id number] [facility] Interpretation and review of laboratory results Abnormal [facility] Radiology Study observation (narrative) [facility] Radiology Study observation (narrative) [facility] Radiology Study observation (narrative) [facility] Vital signson 12-29-2023 Heart rate 80 /min bpm [facility] Stomach Views for gastric emptying solid phase W radionuclide Jacob 12-23-2023 Abnormally delayed gastric emptying following solid meal. Report Dictated on Electronically Signed By: Edwin Paz MD Electronically Signed Date/Time: 12/23/2023 12:06 PM EST [facility] Patient Name: WILL ALVARADO : 1965 [...] ingestion is between 19 and 52 percent. [facility] Edwin Paz MD - 12/23/2023 Patient Name: [...] Electronically Signed Date/Time: 12/23/2023 12:06 PM EST [facility] Radiology Study observation (narrative) [facility] Stomach Views for gastric emptying solid phase W radionuclide POOrdered By: Edwin Paz on 12-23-[address] [facility] Basophil percentageOrdered B y: Jared Guzman on 12-22-2023 Chloride [Moles/Vol] 105 mmol/L 98-107 [facility] Glucose [Mass/Vol] 129 mg/dL 74-106 [facility] Comment on above: Fasting Glucose resu lt greater than or equal to 126 mg/dL suggests DIABETES MELLITUS per A.D.A. criteria. Hemoglobin (Bld) [Mass/Vol] 10.2 g/dL 12.0-15.0 [facility] Potassium [Moles/Vol] 4.8 mmol/L 3.5-5.1 [facility] Sodium [Moles/Vol] 136 mmol/L 136-145 [facility] WBC (Bld) [#/Vol] 9.4 10*3/uL 4.4-11.0 [facility] Determination of erythrocyte mean corpuscular volume (MCV)Ordered By: Jared Guzman on 12-22-2023 MCV (RBC) [Entitic vol] 85.8 fL 81-99 [facility] Erythrocyte distribution wid th ratioOrdered By: Jared Guzman on 12-22-2023 Erythrocyte distribution width (RBC) [Ratio] 13.6 % 11.6-14.6 [facility] Erythrocyte distribution wid th standard deviationOrdered By: Jared Guzman on 12-22-2023 Erythrocyte distribution width (RBC) [Entitic vol] 42.4 fL 35.1-43.9 [facility] Hematocrit Auto (Bld) [Volum e fraction]Ordered By: Jared Guzman on 12-22-2023 Hematocrit (Bld) [Volume fraction] 32.1 % 37-47 [facility] Laboratory - Chemistry and C hemistry - challengeOrdered By: Jared Guzman on 12-22-2023 CO2 [Moles/Vol] 25.0 mmol/L 21.0-32.0 [facility] Urea nitrogen/Creatinine [Mass ratio] 37.0 mg/mg 10-20 [facility] Laboratory - Hematology and Cell countsOrdered By: Jared Guzman on 12-22-2023 MCH (RBC) [Entitic mass] 27.3 pg 27.0-32.0 [facility] MCHC (RBC) [Mass/Vol] 31.8 g/dL 32-36 [facility] Platelet mean volume (Bld) [Entitic vol] 9.9 fL 6.2-12.0 [facility] Platelets (Bld) [#/Vol] 393 10*3/uL 150-450 [facility] No Panel InformationOrdered By: Jared Guzman on 12-22-2023 Estimated GFR (MDRD) Amer 78 mL/min >60 [facility] Comment on above: GFR Calc Estimated GFR (MDRD) Non-Af Amer 65 mL/min >60 [facility] Comment on above: Non- GFR Calc RBC Auto (Bld) [#/Vol]Ordere d By: Jared Guzman on 12-22-2023 RBC (Bld) [#/Vol] 3.74 10*6/uL 4.2-5.[address] [facility] Serum or plasma calcium mauricio urement (mass/volume)Ordered By: Jared Guzman on 12-22-2023 Calcium [Mass/Vol] 9.1 mg/dL 8.5-10.1 [facility] Serum or plasma creatinine m easurement (mass/volume)Ordered By: Jared Guzman on 12-22-2023 Creatinine [Mass/Vol] 0.95 mg/dL 0.55-1.02 [facility] Comment on above: The validity of the calculated GFR & GFRAA in patients over 70 years has not been determined. Clinical correlation is essential. Serum or plasma urea nitroge n measurement (mass/volume)Ordered By: Jared Guzman on 12-22-2023 Urea nitrogen [Mass/Vol] 35 mg/dL 7-18 [facility] Thin prep Papanicolaou smear with manual screeningOrdered By: Jared Guzman on 12-22-2023 Thin prep Papanicolaou smear with manual screening 6 5-15 [facility] CBC W Auto Differential pane l (Bld)Ordered By: Erickson Olmedo on 12-09-2023 Basophils (Bld) [#/Vol] 0.1 10*3/uL 0.0 - 0.2 10*3/uL [facility] Basophils/100 WBC (Bld) 0.6 % 0.0 - 2.0 % [facility] Eosinophils (Bld) [#/Vol] 0.0 10*3/uL 0.0 - 0.5 10*3/uL [facility] Eosinophils/100 WBC (Bld) 0.1 % Low 1.0 - 6.0 % [facility] Erythrocyte distribution width (RBC) [Ratio] 14.5 % 11.5 - 14.5 % [facility] Hematocrit (Bld) [Volume fraction] 36.0 % Male: 40.0-52.0 %; Female: 35.0-47.0 % [facility] Hemoglobin (Bld) [Mass/Vol] 12.1 g/dL 11.7 - 18.0 g/dL [facility] Interpretation and review of laboratory results Abnormal [facility] Lymphocytes (Bld) [#/Vol] 1.0 10*3/uL 1.0 - 4.3 10*3/uL [facility] Lymphocytes/100 WBC (Bld) 9.5 % Low 20.0 - 40.0 % [facility] MCH (RBC) [Entitic mass] 28.1 pg 26.0 - 34.[address] [facility] MCHC (RBC) [Mass/Vol] 33.5 % 32.0 - 36.0 % [facility] MCV (RBC) [Entitic vol] 83.9 fL 80.0 - 98.[address] [facility] Monocytes (Bld) [#/Vol] 0.5 10*3/uL 0.0 - 0.8 10*3/uL [facility] Monocytes/100 WBC (Bld) 4.8 % 2.0 - 10.0 % [facility] Neutrophils (Bld) [#/Vol] 9.1 10*3/uL High 1.8 - 7.0 10*3/uL [facility] Neutrophils/100 WBC (Bld) 85.0 % High 40.0 - 80.0 % [facility] Nucleated RBC/100 WBC (Bld) [Ratio] 0.0 % [facility] Platelet mean volume (Bld) [Entitic vol] 8.0 fL 7.4 - 12.[address] [facility] Platelets (Bld) [#/Vol] 485 10*3/uL High 140 - 440 10*3/uL [facility] RBC (Bld) [#/Vol] 4.29 10*6/uL Male: 4.40-5.90; Female: 3.80-5.[address] [facility] WBC (Bld) [#/Vol] 10.7 10*3/uL 3.6 - 10.7 10*3/uL [facility] Comprehensive metabolic 1998 panelon 12-09-2023 Albumin [Mass/Vol] 4.0 g/dL 3.5 - 5.0 g/dL [facility] ALP [Catalytic activity/Vol] 139 U/L High 38 - 126 U/L [facility] ALT [Catalytic activity/Vol] 29 U/L Male: 0-49 U/L; Female: 0-34 U/L [facility] Anion gap [Moles/Vol] 11 mmol/L 3 - 13 mmol/L [facility] AST [Catalytic activity/Vol] 25 U/L 15 - 46 U/L [facility] Bilirubin [Mass/Vol] 0.7 mg/dL 0.2 - 1 .3 mg/dL [facility] Calcium [Mass/Vol] 9.0 mg/dL 8.4 - 10. 4 mg/dL [facility] Chloride [Moles/Vol] 96 mmol/L Low 98 - 10 7 mmol/L [facility] CO2 [Moles/Vol] 24 mmol/L 22 - 30 mmol/L [facility] Creatinine [Mass/Vol] 0.76 mg/dL Male: 0.66-1.25 mg/dL; Female: 0.52-1.04 mg/dL [facility] GFR/1.73 sq M.predicted MDRD (S/P/Bld) [Vol rate/Area] - PINF [facility] Comment on above: Calculation based on the Chronic Kidney Disease Epidemiology Collaboration (CKD-EPI) equation refit without adjustment for race Glucose [Mass/Vol] 295 mg/dL High 70 - 100 mg/dL [facility] Interpretation and review of laboratory results Abnormal [facility] Potassium [Moles/Vol] 5.0 mmol/L 3.5 - 5.1 mmol/L [facility] Protein [Mass/Vol] 7.2 g/dL 6.3 - 8.2 g/dL [facility] Sodium [Moles/Vol] 132 mmol/L Low 135 - 145 mmol/L [facility] Urea nitrogen [Mass/Vol] 26 mg/dL Male: 9-20 mg/dL; Female: 7-17 mg/dL [facility] Laboratory - Chemistry and C hemistry - challengeon 12-09-2023 Troponin I.cardiac [Mass/Vol] ng/mL [facility] - 0.034 ng/mL [facility] Troponin I.cardiac [Mass/Vol] ng/mL [facility] - 0.034 ng/mL [facility] Beta hydroxybutyrate [Mass/Vol] 5.77 mg/dL High 0.20 - 2.81 mg/dL [facility] Lactate [Moles/Vol] 1.4 mmol/L 0.7 - 2. 0 mmol/L [facility] Lipase [Catalytic activity/Vol] 41 U/L 23 - 300 U/L [facility] Magnesium [Mass/Vol] 1.6 mg/dL 1.6 - 2 .3 mg/dL [facility] Base excess Calc (BldV) [Moles/Vol] -0.6000 mmol/L -3 - 3 mmol/L [facility] CO2 (BldV) [Partial pressure] 42.1 mm[Hg] [facility] HCO3 (Bld) [Moles/Vol] 24.7 mmol/L 23.0 - 27.0 mmol/L [facility] Oxygen (BldV) [Partial pressure] 34.1 mm[Hg] mm Hg [facility] pH (BldV) 7.377 [pH] 7.330 - 7.[address] [facility] Laboratory - Microbiology an d Antimicrobial susceptibilityon 12-09-2023 FLUAV RNA YASIR+probe Ql (Resp) Not detected Not Detected [facility] FLUBV RNA YASIR+probe Ql (Resp) Not detected Not Detected [facility] RSV RNA YASIR+probe Ql (Resp) Not detected Not Detected [facility] SARS-CoV-2 (COVID-19) RNA YASIR+probe Ql (Resp) Not detected Not Detected [facility] SARS-CoV-2 (COVID-19) RNA YASIR+probe Ql (Unsp spec) Methodology: real-time, RT-PCR The SARS-CoV-2, Flu A/B, and RSV Combo assay is intended for in vitro diagnostic use under the FDA Emergency Use Authorization (EUA). This test has not been FDA cleared or approved. In compliance with this authorization, please visit www.fda.gov/media/161378 /download or www.fda.gov/media/590550 /download to access the applicable information sheets. [facility] No Panel Informationon 12-09 Interpretation and review of laboratory results Abnormal [facility] P [place] [address] [facility] [place] Interval [address] [facility] QRS [place] -[address] [facility] QRSD Interval [address] [facility] QT Interval [address] [facility] QTC Interval [address] [facility] T Wave [place] [address] [facility] Caridad Evans MD - 12/09/2023 IMPRESSION: Sinus rhythm Abnormal R-wave progression, late transition Left ventricular hypertrophy No significant change compared to 08/17/2023 Electronically Signed On 12-09-2023 06:18:33 EST by Caridad Barnard [facility] Interpretation and review of laboratory results Normal [facility] Interpretation and review of laboratory results Normal [facility] FIO2 [facility] Performed by: Nati Vigil [facility], [address] [place] [id number] CLIA ID: [id number] [facility] Radiology Study observation (narrative) [facility] SARS-CoV-2, Flu A/B, and RSV Comboon 12-09-2023 Interpretation and review of laboratory results Normal [facility] Troponin I.cardiac [Mass/Vol ]on 12-09-2023 Interpretation and review of laboratory results Normal [facility] Specimen slightly hemolyzed, interpret results with caution Patients with high levels of Biotin oral intake (ie >5 mg/day) may have falsely decreased Troponin levels. [facility] Interpretation and review of laboratory results Normal [facility] Patients with high levels of Biotin oral intake (ie >5 mg/day) may have falsely decreased Troponin levels. [facility] Urinalysis complete panel (U )Ordered By: Jackson Her on 12-09-2023 Bacteria LM.HPF (Urine sed) [#/Area] Few Abnormal Negative /HPF [facility] Bilirubin Ql (U) Negative Negative mg/dL [facility] Clarity (U) Clear Clear [facility] Color (U) Light Yellow Lt. Yellow [facility] Epithelial cells.squamous LM.HPF (Urine sed) [#/Area] 0-[address] [facility] Glucose Ql (U) 500 mg/dL Abnormal Normal (<70) [facility] Hemoglobin Ql (U) 0.06 mg/dL Abnormal Negative [facility] Hyaline casts Auto (Urine sed) [#/Area] 0-2 Abnormal Negative /LPF [facility] Interpretation and review of laboratory results Abnormal [facility] Ketones (U) [Mass/Vol] 10 mg/dL Abnormal Negative [facility] Leukocyte esterase Test strip Ql (U) 25 Abnormal Negative Kat/uL [facility] Mucus LM.HPF (Urine sed) [#/Area] Few Negative /LPF [facility] Nitrite Ql (U) Negative Negative [facility] Non-Squamous Epithalial Cells, Urine 0-2 Abnormal Negative /HPF [facility] pH (U) 6.0 [pH] 5.0 - 8.[address] [facility] Protein (U) [Mass/Vol] 300 mg/dL Abnormal Negative [facility] RBC LM.HPF (Urine sed) [#/Area] 3-[address] [facility] Specific gravity (U) [Rel density] 1.021 1.005 - 1.[address] [facility] Urobilinogen (U) [Mass/Vol] Normal Normal (0-1) mg/dL [facility] WBC LM.HPF (Urine sed) [#/Area] 6-10 Abnormal [facility] Vital signson 12-09-2023 Heart rate 87 /min bpm [facility] Oxygen saturation in Venous blood 64.1 % [facility] Comment on above: Performed by CLIA ID : [id number] [place], [place] ?Device: [id number] Foxpro Developer ID: [id number] XR Chest Single viewon 12-09 Left basilar atelect asis Report Dictated on Electronically Signed By: Sergio Muniz MD Electronically Signed Date/Time: 12/09/2023 6:11 AM [facility] Patient Name: WILL ALVARADO : [...] likely diffuse idiopathic skeletal hyperostosis. [facility] Sergio Muniz MD - 12/09/2023 Patient [...] MD Electronically Signed Date/Time: 12/09/2023 6:[address] [facility] observation (narrative) [employer] [facility] XR Chest Single viewOrdered By: Sergio Muniz on 12-09-2023 [employer] [facility] Work Phone: Basophil percentageOrdered B y: Jared Guzman on 11-23-2023 Chloride [Moles/Vol] 106 mmol/L 98-107 [facility] Glucose [Mass/Vol] 212 mg/dL 74-106 [facility] Comment on above: Glucose result great er than or equal to 200 mg/dLsuggests DIABETES MELLITUS per A.D.A. criteria. Hemoglobin (Bld) [Mass/Vol] 10.5 g/dL 12.0-15.0 [facility] Potassium [Moles/Vol] 5.0 mmol/L 3.5-5.1 [facility] Sodium [Moles/Vol] 136 mmol/L 136-145 [facility] WBC (Bld) [#/Vol] 7.5 10*3/uL 4.4-11.0 [facility] Determination of erythrocyte mean corpuscular volume (MCV)Ordered By: Jared Guzman on 11-23-2023 MCV (RBC) [Entitic vol] 87.7 fL 81-99 [facility] Erythrocyte distribution wid th ratioOrdered By: Jared Guzman on 11-23-2023 Erythrocyte distribution width (RBC) [Ratio] 13.7 % 11.6-14.6 [facility] Erythrocyte distribution wid th standard deviationOrdered By: Jared Guzman on 11-23-2023 Erythrocyte distribution width (RBC) [Entitic vol] 43.8 fL 35.1-43.9 [facility] Hematocrit Auto (Bld) [Volum e fraction]Ordered By: Jared Guzman on 11-23-2023 Hematocrit (Bld) [Volume fraction] 33.4 % 37-47 [facility] Iron measurement (mass/mass) Ordered By: Jared Guzman on 11-23-2023 Iron (Unsp spec) [Mass/Mass] 53 ug/dL 50-170 [facility] Laboratory - Chemistry and C hemistry - challengeOrdered By: Jared Guzman on 11-23-2023 CO2 [Moles/Vol] 24.0 mmol/L 21.0-32.0 [facility] Cobalamin (Vitamin B12) [Mass/Vol] 298 pg/mL 211-911 [facility] Ferritin [Mass/Vol] 68 ng/mL 8-[address] [facility] Urea nitrogen/Creatinine [Mass ratio] 26.1 mg/mg 10-20 [facility] Laboratory - Hematology and Cell countsOrdered By: aJred Guzman on 11-23-2023 MCH (RBC) [Entitic mass] 27.6 pg 27.0-32.0 [facility] MCHC (RBC) [Mass/Vol] 31.4 g/dL 32-36 [facility] Platelets (Bld) [#/Vol] 347 10*3/uL 150-450 [facility] No Panel InformationOrdered By: Jared Guzman on 11-23-2023 Estimated GFR (MDRD) Amer 94 mL/min >60 [facility] Comment on above: GFR Calc Estimated GFR (MDRD) Non-Af Amer 78 mL/min >60 [facility] Comment on above: Non- GFR Calc Total Iron Binding Capacity 274 ug/dL 250-450 [facility] Platelet mean volume Miquel-Ec ker (Bld) [Entitic vol]Ordered By: Jared Guzman on 11-23-2023 Platelet mean volume (Bld) [Entitic vol] 10.4 fL 6.2-12.0 [facility] RBC Auto (Bld) [#/Vol]Ordere d By: Jared Guzman on 11-23-2023 RBC (Bld) [#/Vol] 3.81 10*6/uL 4.2-5.[address] [facility] Serum mitochondria antibody detectionOrdered By: Jared Guzman on 11-23-2023 Mitochondria Ab Ql (S) <20.0 Units 0.0-20.0 [facility] Comment on above: Negative 0.0 - 20.0 Equivocal 20.1 - 24.9 Positive >24.9Mitochondrial (M2) Antibodies are found in 90-96% ofpatients with primary biliary cirrhosis.Performed at: [employer] [facility] [address] [id number] Director: Kb Lopez PhD, Phone: [phone] Serum or plasma IgG measurem ent (mass/volume)Ordered By: Jared Guzman on 11-23-2023 IgG [Mass/Vol] 622 mg/dL [phone] [facility] Comment on above: Performed at: [facility] [address] [id number] Director: Kb Lopez PhD, Phone: [phone] Serum or plasma bone alkalin e phosphatase/total alkaline phosphatase ratio (catalyticOrdered By: Jared Guzman on 11-23-2023 ALP Bone [Catalytic fraction] 31 % 14-68 [facility] Serum or plasma calcium mauricio urement (mass/volume)Ordered By: Jared Guzman on 11-23-2023 Calcium [Mass/Vol] 9.0 mg/dL 8.5-10.1 [facility] Serum or plasma creatinine m easurement (mass/volume)Ordered By: Jared Guzman on 11-23-2023 Creatinine [Mass/Vol] 0.80 mg/dL 0.55-1.02 [facility] Comment on above: The validity of the calculated GFR & GFRAA in patients over 70 years has not been determined. Clinical correlation is essential. Serum or plasma intestinal a lkaline phosphatase/total alkaline phosphatase ratio (catOrdered By: Jared Guzman on 11-23-2023 ALP Intest [Catalytic fraction] 12 % 0-18 [facility] Serum or plasma liver alkali ne phosphatase/total alkaline phosphatase ratio (catalytiOrdered By: Jared Guzman on 11-23-2023 ALP Liver [Catalytic fraction] 57 % 18-85 [facility] Serum or plasma urea nitroge n measurement (mass/volume)Ordered By: Jared Guzman on 11-23-2023 Urea nitrogen [Mass/Vol] 21 mg/dL 7-18 [facility] Thin prep Papanicolaou smear with manual screeningOrdered By: Jared Guzman on 11-23-2023 Thin prep Papanicolaou smear with manual screening 6 5-15 [facility] Thin prep Papanicolaou smear with manual screening 127 IU/L 44-121 [facility] CNPNon 11-22-2023 CNPN Telephone (GSTNOR) -------- WILL JACINTO ([id number]) 1965 F Date Time Provider Department 11/22/23 ELDA REAVES GSTNOR During your visit today, we recorded the following information about you: Jony Belia Gomez 11/22/2023 11:20 AM Addendum I scanned lab results you ordered on patient today (chemistry, hematology AND miscellaneous.) Please review. Thanks. Belia Elda Ba PA-C 11/22/2023 3:09 PM Signed Please inform pt anemia is persistent but stable. Negative for Celiac. Alk phos is elevated but this is a nonspecific finding, could be due to fatty liver. Blood sugars elevated, recommend continued follow up with Endocrinology. I have ordered additional labs to eval persistent anemia/alk phos elevations. JONATHAN Syde Kristen, PA-C 11/22/2023 3:09 PM Signed Addended by: ELDA REAVES on: 11/22/2023 03:09 PM Modules accepted: Orders Kwasi Silva MA 11/22/2023 3:29 PM Signed Nurse Nabil advised lab orders faxed to [phone]. Allergies As of Date: 11/22/2023 (No Known Allergies) Date Reviewed: 11/17/2023 Reviewed by: Elda Reaves PA-C - Fully Assessed Reason for Visit: Results [95] Primary Visit Diagnosis:Anemia, unspecified type [D64.9] Other Visit Diagnosis:Elevated alkaline phosphatase level [R74.8] Order(s):ALK PHOS ISOENZYM BL [SQALKISO] Order #: [id number] FUTURE MITOCHONDRIAL M2 IGG SERUM [SQMITOS] Order #: [id number] FUTURE IRON + TIBC [SQIRON] Order #: [id number] FUTURE FERRITIN BLD [SQFERR] Order #: [id number] FUTURE VITAMIN B12 BLOOD [SQB12] Order #: [id number] FUTURE Prescriptions as of 11/22/2023 - atorvastatin [...] Date: 11/22/2023 (None) Encounter Status:Closed by BELIA CHACON on 11/22/23 Normal [facility] Absolute lymphocyte countOrd ered By: Jared Guzman on 11-18-2023 Lymphocytes Auto (Unsp spec) [#/Vol] 2.16 10*3/uL 0.83-4.51 [facility] Basophil percentageOrdered B y: Jared Guzman on 11-18-2023 Basophils/100 WBC (Bld) 0.8 % 0-1 [facility] Bilirubin [Mass/Vol] 0.40 mg/dL 0.20-1.00 [facility] Comment on above: For patients on eltr ombopag therapy, use of Dimension [place] TBIL is not recommended. Chloride [Moles/Vol] 104 mmol/L 98-107 [facility] Eosinophils/100 WBC (Bld) 2.3 % 0-5 [facility] Glucose [Mass/Vol] 211 mg/dL 74-106 [facility] Comment on above: Glucose result great er than or equal to 200 mg/dLsuggests DIABETES MELLITUS per A.D.A. criteria. Neutrophils (Bld) [#/Vol] 5.2 10*3/uL 2.0-7.7 [facility] Neutrophils/100 WBC (Bld) 62.4 % 47-70 [facility] Potassium [Moles/Vol] 4.9 mmol/L 3.5-5.1 [facility] Protein [Mass/Vol] 6.3 g/dL 6.4-8.2 [facility] Sodium [Moles/Vol] 136 mmol/L 136-145 [facility] WBC (Bld) [#/Vol] 8.4 10*3/uL 4.4-11.0 [facility] Blood erythrocytes count (nu mber/volume)Ordered By: Jared Guzman on 11-18-2023 RBC (Bld) [#/Vol] 3.93 10*6/uL 4.2-5.[address] [facility] Blood hemoglobin measurement (mass/volume)Ordered By: Jared Guzman on 11-18-2023 Hemoglobin (Bld) [Mass/Vol] 10.7 g/dL 12.0-15.0 [facility] Blood lymphocytes/100 leukoc ytesOrdered By: Jared Guzman on 11-18-2023 Lymphocytes/100 WBC (Bld) 25.7 % 19-41 [facility] Blood monocytes/100 leukocyt esOrdered By: Jared Guzman on 11-18-2023 Monocytes/100 WBC (Bld) 7.5 % 0-10 [facility] Blood platelet mean volumeOr dered By: Jared Guzman on 11-18-2023 Platelet mean volume (Bld) [Entitic vol] 10.1 fL 6.2-12.0 [facility] Determination of erythrocyte mean corpuscular volume (MCV)Ordered By: Jared Guzman on 11-18-2023 MCV (RBC) [Entitic vol] 88.5 fL 81-99 [facility] Hematocrit Auto (Bld) [Volum e fraction]Ordered By: Jared Guzman on 11-18-2023 Hematocrit (Bld) [Volume fraction] 34.8 % 37-47 [facility] Laboratory - Chemistry and C hemistry - challengeOrdered By: Jared Guzman on 11-18-2023 ALP [Catalytic activity/Vol] 155 U/L 45-117 [facility] ALT [Catalytic activity/Vol] 30 U/L 13-56 [facility] CO2 [Moles/Vol] 24.0 mmol/L 21.0-32.0 [facility] Globulin (S) [Mass/Vol] 3.5 g/dL 2.2-4.2 [facility] Lipase [Catalytic activity/Vol] 22 U/L 13-75 [facility] Comment on above: Please note:LIPASE r evised reference range effective 23. New Lipase methodology. Expected to produce lower values than the previous assay method. NEW Reference Range: 13 - 75 U/L Urea nitrogen/Creatinine [Mass ratio] 29.0 mg/mg 10-20 [facility] Laboratory - Hematology and Cell countsOrdered By: Jared Guzman on 11-18-2023 Erythrocyte distribution width (RBC) [Entitic vol] 44.7 fL 35.1-43.9 [facility] Erythrocyte distribution width (RBC) [Ratio] 13.8 % 11.6-14.6 [facility] Immature granulocytes/100 WBC (Bld) 1.300 % 0.0-0.9 [facility] Comment on above: IG% - Immature Granu locytes (promyelocytes, myelocytes and metamyelocytes) > 1% indicates that a LEFT SHIFT is Present. MCH (RBC) [Entitic mass] 27.2 pg 27.0-32.0 [facility] Nucleated RBC/100 W[facility] (Bld) [Ratio] 0 [facility] [Mass/Vol]Or dered By: Jared Guzman on 11-18-2023 MCHC (RBC) [Mass/Vol] 30.7 g/dL 32-36 [facility] No Panel InformationOrdered By: Jared Guzman on 11-18-2023 Endomysial IgA Antibody Negative Negative [facility] Estimated GFR (MDRD) Amer 87 mL/min >60 [facility] Comment on above: GFR Calc Estimated GFR (MDRD) Non-Af Amer 72 mL/min >60 [facility] Comment on above: Non- GFR Calc Platelets bldOrdered By: Mike Guzman on 11-18-2023 Platelets (Bld) [#/Vol] 340 10*3/uL 150-450 [facility] Serum IgA measurement (units /volume)Ordered By: Jared Guzman on 11-18-2023 IgA Qn (S) 224 mg/dL 87-352 [facility] Comment on above: Performed at: [employer] [place] [id number] Director: Kb Lopez PhD, Phone: [phone] Serum or plasma albumin mauricio urement (mass/volume)Ordered By: Jared Guzman on 11-18-2023 Albumin [Mass/Vol] 2.8 g/dL 3.2-5.0 [facility] Serum or plasma albumin/glob ulin mass ratioOrdered By: Jared Guzman on 11-18-2023 Albumin/Globulin [Mass ratio] 0.8 {ratio} 0.9-2.4 [facility] Serum or plasma calcium mauricio urement (mass/volume)Ordered By: Jared Guzman on 11-18-2023 Calcium [Mass/Vol] 9.2 mg/dL 8.5-10.1 [facility] Serum or plasma creatinine m easurement (mass/volume)Ordered By: Jared Guzman on 11-18-2023 Creatinine [Mass/Vol] 0.86 mg/dL 0.55-1.02 [facility] Comment on above: The validity of the calculated GFR & GFRAA in patients over 70 years has not been determined. Clinical correlation is essential. Serum or plasma urea nitroge n measurement (mass/volume)Ordered By: Jared Guzman on 11-18-2023 Urea nitrogen [Mass/Vol] 25 mg/dL 7-18 [facility] Serum tissue transglutaminas e IgA antibody assay (units/volume)Ordered By: Jared Guzman on 11-18-2023 tTG IgA Qn (S) <2 U/mL 0-3 [facility] Comment on above: Negative 0 - 3 Weak Positive 4 - 10 Positive >10 Tissue Transglutaminase (tTG) has been identified as the endomysial antigen. Studies have demonstr- ated that endomysial IgA antibodies have over 99% specificity for gluten sensitive enteropathy. Thin prep Papanicolaou smear with manual screeningOrdered By: Jared Guzman on 11-18-2023 Thin prep Papanicolaou smear with manual screening 11 U/L 15-37 [facility] Thin prep Papanicolaou smear with manual screening 8 5-15 [facility] CNOVon 11-17-2023 CNOV Office Visit ([facility] ) -------- WILL JACINTO ([id number]) 1965 F Date Time Provider Department 11/17/23 9:40 AM ELDA REAVES [facility] During your visit today, we recorded the following information about you: Pulse Blood pressure 77/minute 124/58 Elda Reaves PA-C 11/17/2023 10:00 AM Signed CHIEF COMPLAINT: Patient presents with: Nausea AND Vomiting HPI: Resident at [facility], [facility] and rehab. Will Jacinto is a 58 year old adult with PMHx positive for anxiety, bipolar, HTN, HLD, DM II who presents for Nausea AND Vomiting. On Protonix 40 mg daily. Recent [facility] admission 2/2 complications from DM, [...] bedtime. No (more content not included)... Normal [facility] Absolute lymphocyte countOrd ered By: Jared Guzman on 10-26-2023 Lymphocytes Auto (Unsp spec) [#/Vol] 1.95 10*3/uL 0.83-4.51 [facility] Basophil percentageOrdered B y: Jared Guzman on 10-26-2023 Basophils/100 WBC (Bld) 0.5 % 0-1 [facility] Chloride [Moles/Vol] 107 mmol/L 98-107 [facility] Eosinophils/100 WBC (Bld) 3.4 % 0-5 [facility] Glucose [Mass/Vol] 279 mg/dL 74-106 [facility] Comment on above: Glucose result great er than or equal to 200 mg/dLsuggests DIABETES MELLITUS per A.D.A. criteria. Neutrophils (Bld) [#/Vol] 3.6 10*3/uL 2.0-7.7 [facility] Neutrophils/100 WBC (Bld) 57.8 % 47-70 [facility] Potassium [Moles/Vol] 4.9 mmol/L 3.5-5.1 [facility] Sodium [Moles/Vol] 138 mmol/L 136-145 [facility] WBC (Bld) [#/Vol] 6.2 10*3/uL 4.4-11.0 [facility] Blood erythrocytes count (nu mber/volume)Ordered By: Jared Guzman on 10-26-2023 RBC (Bld) [#/Vol] 3.47 10*6/uL 4.2-5.[address] [facility] Blood hemoglobin measurement (mass/volume)Ordered By: Jared Guzman on 10-26-2023 Hemoglobin (Bld) [Mass/Vol] 9.6 g/dL 12.0-15.0 [facility] Blood lymphocytes/100 leukoc ytesOrdered By: Jared Guzman on 10-26-2023 Lymphocytes/100 WBC (Bld) 31.3 % 19-41 [facility] Blood monocytes/100 leukocyt esOrdered By: Jared Guzman on 10-26-2023 Monocytes/100 WBC (Bld) 6.4 % 0-10 [facility] Blood platelet mean volumeOr dered By: Jared Guzman on 10-26-2023 Platelet mean volume (Bld) [Entitic vol] 10.3 fL 6.2-12.0 [facility] Determination of erythrocyte mean corpuscular volume (MCV)Ordered By: Jared Guzman on 10-26-2023 MCV (RBC) [Entitic vol] 89.6 fL 81-99 [facility] Hematocrit Auto (Bld) [Volum e fraction]Ordered By: Jared Guzman on 10-26-2023 Hematocrit (Bld) [Volume fraction] 31.1 % 37-47 [facility] Laboratory - Chemistry and C hemistry - challengeOrdered By: Jared Guzman on 10-26-2023 CO2 [Moles/Vol] 25.0 mmol/L 21.0-32.0 [facility] Urea nitrogen/Creatinine [Mass ratio] 26.6 mg/mg 10-20 [facility] Laboratory - Hematology and Cell countsOrdered By: Jared Guzman on 10-26-2023 Erythrocyte distribution width (RBC) [Entitic vol] 47.2 fL 35.1-43.9 [facility] Erythrocyte distribution width (RBC) [Ratio] 14.6 % 11.6-14.6 [facility] Immature granulocytes/100 WBC (Bld) 0.600 % 0.0-0.9 [facility] Comment on above: IG% - Immature Granu locytes (promyelocytes, myelocytes and metamyelocytes) > 1% indicates that a LEFT SHIFT is Present. MCH (RBC) [Entitic mass] 27.7 pg 27.0-32.0 [facility] Nucleated RBC/100 WBC (Bld) [Ratio] 0 % 0-5 [facility] MCHC Auto (RBC) [Mass/Vol]Or dered By: Jared Guzman on 10-26-2023 MCHC (RBC) [Mass/Vol] 30.9 g/dL 32-36 [facility] No Panel InformationOrdered By: Jared Guzman on 10-26-2023 Estimated GFR (MDRD) Amer 87 mL/min >60 [facility] Comment on above: GFR Calc Estimated GFR (MDRD) Non-Af Amer 72 mL/min >60 [facility] Comment on above: Non- GFR Calc Platelets bldOrdered By: Mike Guzman on 10-26-2023 Platelets (Bld) [#/Vol] 355 10*3/uL 150-450 [facility] Serum or plasma calcium mauricio urement (mass/volume)Ordered By: Jared Guzman on 10-26-2023 Calcium [Mass/Vol] 9.0 mg/dL 8.5-10.1 [facility] Serum or plasma creatinine m easurement (mass/volume)Ordered By: Jared Guzman on 10-26-2023 Creatinine [Mass/Vol] 0.87 mg/dL 0.55-1.02 [facility] Comment on above: The validity of the calculated GFR & GFRAA in patients over 70 years has not been determined. Clinical correlation is essential. Serum or plasma urea nitroge n measurement (mass/volume)Ordered By: Jared Guzman on 10-26-2023 Urea nitrogen [Mass/Vol] 23 mg/dL 7-18 [facility] Thin prep Papanicolaou smear with manual screeningOrdered By: Jared Guzman on 10-26-2023 Thin prep Papanicolaou smear with manual screening 6 5-15 [facility] Laboratory - Chemistry and C hemistry - challengeon 10-16-2023 Glucose [Mass/Vol] 289 mg/dL High 70 - 100 mg/dL [facility] Glucose [Mass/Vol] 346 mg/dL High 70 - 100 mg/dL [facility] Glucose [Mass/Vol] 304 mg/dL High 70 - 100 mg/dL [facility] Glucose [Mass/Vol] 312 mg/dL High 70 - 100 mg/dL [facility] No Panel Informationon 10-16 Interpretation and review of laboratory results Abnormal [facility] Interpretation and review of laboratory results Abnormal [facility] Interpretation and review of laboratory results Abnormal [facility] Interpretation and review of laboratory results Abnormal [facility] Glucose (Bld) [Mass/Vol]Orde red By: Eva Dalal on 10-15-2023 Glucose [Mass/Vol] 473 mg/dL Critically high 70 - 1 00 mg/dL [facility] Interpretation and review of laboratory results Abnormal [facility] Glucose (Bld) [Mass/Vol]Orde red By: Diane Islas on 10-15-2023 Glucose [Mass/Vol] 528 mg/dL Critically high 70 - 1 00 mg/dL [facility] Interpretation and review of laboratory results Abnormal [facility] Laboratory - Chemistry and C hemistry - challengeon 10-15-2023 Glucose [Mass/Vol] 262 mg/dL High 70 - 100 mg/dL [facility] Glucose [Mass/Vol] 289 mg/dL High 70 - 100 mg/dL [facility] Glucose [Mass/Vol] mg/dL High 70 - 100 mg/dL [facility] Glucose [Mass/Vol] mg/dL High 70 - 100 mg/dL [facility] No Panel Informationon 10-15 Interpretation and review of laboratory results Abnormal [facility] Interpretation and review of laboratory results Abnormal [facility] Interpretation and review of laboratory results Abnormal [facility] Interpretation and review of laboratory results Abnormal [facility] Bacteria identified Cx Nom ( Bld)on 10-14-2023 Interpretation and review of laboratory results Normal [facility] Basic metabolic 1998 panelon 10-14-2023 Anion gap [Moles/Vol] 7 mmol/L 3 - 13 mmol/L [facility] Calcium [Mass/Vol] 8.8 mg/dL 8.4 - 10. 4 mg/dL [facility] Chloride [Moles/Vol] 102 mmol/L 98 - 10 7 mmol/L [facility] CO2 [Moles/Vol] 25 mmol/L 22 - 30 mmol/L [facility] Creatinine [Mass/Vol] 0.98 mg/dL Male: 0.66-1.25 mg/dL; Female: 0.52-1.04 mg/dL [facility] GFR/1.73 sq M.predicted MDRD (S/P/Bld) [Vol rate/Area] 67.9 mL/min/{1.73_m2} - PINF [facility] Glucose [Mass/Vol] 250 mg/dL High 70 - 100 mg/dL [facility] Interpretation and review of laboratory results Abnormal [facility] Potassium [Moles/Vol] 3.9 mmol/L 3.5 - 5.1 mmol/L [facility] Sodium [Moles/Vol] 134 mmol/L Low 135 - 145 mmol/L [facility] Urea nitrogen [Mass/Vol] 35 mg/dL Male: 9-20 mg/dL; Female: 7-17 mg/dL [facility] Laboratory - Chemistry and C hemistry - challengeon 10-14-2023 Glucose [Mass/Vol] 305 mg/dL High 70 - 100 mg/dL [facility] Glucose [Mass/Vol] 338 mg/dL High 70 - 100 mg/dL [facility] Glucose [Mass/Vol] 360 mg/dL High 70 - 100 mg/dL [facility] Glucose [Mass/Vol] 268 mg/dL High 70 - 100 mg/dL [facility] Glucose [Mass/Vol] 235 mg/dL High 70 - 100 mg/dL [facility] Laboratory - Microbiology an d Antimicrobial susceptibilityon 10-14-2023 Bacteria identified Cx Nom (Bld) No growth at [address] [facility] No Panel Informationon 10-14 Interpretation and review of laboratory results Abnormal [facility] Interpretation and review of laboratory results Abnormal [facility] Interpretation and review of laboratory results Abnormal [facility] Interpretation and review of laboratory results Abnormal [facility] Interpretation and review of laboratory results Abnormal [facility] Basic metabolic 1998 panelon 10-13-2023 Anion gap [Moles/Vol] 10 mmol/L 3 - 13 mmol/L [facility] Calcium [Mass/Vol] 8.5 mg/dL 8.4 - 10. 4 mg/dL [facility] Chloride [Moles/Vol] 95 mmol/L Low 98 - 10 7 mmol/L [facility] CO2 [Moles/Vol] 24 mmol/L 22 - 30 mmol/L [facility] Creatinine [Mass/Vol] 1.28 mg/dL Male: 0.66-1.25 mg/dL; Female: 0.52-1.04 mg/dL [facility] GFR/1.73 sq M.predicted MDRD (S/P/Bld) [Vol rate/Area] 49.3 mL/min/{1.73_m2} Low - PINF [facility] Glucose [Mass/Vol] 383 mg/dL High 70 - 100 mg/dL [facility] Interpretation and review of laboratory results Abnormal [facility] Potassium [Moles/Vol] 3.8 mmol/L 3.5 - 5.1 mmol/L [facility] Sodium [Moles/Vol] 129 mmol/L Low 135 - 145 mmol/L [facility] Urea nitrogen [Mass/Vol] 44 mg/dL Male: 9-20 mg/dL; Female: 7-17 mg/dL [facility] CBC panel Auto (Bld)on 10-13 Erythrocyte distribution width (RBC) [Ratio] 14.7 % High 11.5 - 14.5 % [facility] Hematocrit (Bld) [Volume fraction] 31.7 % Male: 40.0-52.0 %; Female: 35.0-47.0 % [facility] Hemoglobin (Bld) [Mass/Vol] 10.5 g/dL Low 11.7 - 18.0 g/dL [facility] Interpretation and review of laboratory results Abnormal [facility] MCH (RBC) [Entitic mass] 28.1 pg 26.0 - 34.[address] [facility] MCHC (RBC) [Mass/Vol] 33.1 % 32.0 - 36.0 % [facility] MCV (RBC) [Entitic vol] 84.9 fL 80.0 - 98.[address] [facility] Platelet mean volume (Bld) [Entitic vol] 7.4 fL 7.4 - 12.[address] [facility] Platelets (Bld) [#/Vol] 324 10*3/uL 140 - 440 10*3/uL [facility] RBC (Bld) [#/Vol] 3.73 10*6/uL Male: 4.40-5.90; Female: 3.80-5.[address] [facility] WBC (Bld) [#/Vol] 9.1 10*3/uL 3.6 - 10.7 10*3/uL [facility] Laboratory - Chemistry and C hemistry - challengeon 10-13-2023 Glucose [Mass/Vol] 232 mg/dL High 70 - 100 mg/dL [facility] Glucose [Mass/Vol] 243 mg/dL High 70 - 100 mg/dL [facility] Glucose [Mass/Vol] 241 mg/dL High 70 - 100 mg/dL [facility] Glucose [Mass/Vol] 311 mg/dL High 70 - 100 mg/dL [facility] Glucose [Mass/Vol] 446 mg/dL High 70 - 100 mg/dL [facility] Glucose [Mass/Vol] 435 mg/dL High 70 - 100 mg/dL [facility] Magnesium [Mass/Vol] 1.7 mg/dL 1.6 - 2 .3 mg/dL [facility] Magnesium [Mass/Vol]on 10-13 Interpretation and review of laboratory results Normal [facility] No Panel Informationon 10-13 Interpretation and review of laboratory results Abnormal [facility] Interpretation and review of laboratory results Abnormal [facility] Interpretation and review of laboratory results Abnormal [facility] Interpretation and review of laboratory results Abnormal [facility] Interpretation and review of laboratory results Abnormal [facility] Interpretation and review of laboratory results Abnormal [facility] Bacteria identified Cx Nom ( Bld)on 10-12-2023 Interpretation and review of laboratory results Normal [facility] Basic metabolic 1998 panelon 10-12-2023 Anion gap [Moles/Vol] 10 mmol/L 3 - 13 mmol/L [facility] Calcium [Mass/Vol] 9.4 mg/dL 8.4 - 10. 4 mg/dL [facility] Chloride [Moles/Vol] 97 mmol/L Low 98 - 10 7 mmol/L [facility] CO2 [Moles/Vol] 24 mmol/L 22 - 30 mmol/L [facility] Creatinine [Mass/Vol] 0.98 mg/dL Male: 0.66-1.25 mg/dL; Female: 0.52-1.04 mg/dL [facility] GFR/1.73 sq M.predicted MDRD (S/P/Bld) [Vol rate/Area] 67.9 mL/min/{1.73_m2} - PINF [facility] Glucose [Mass/Vol] 401 mg/dL High 70 - 100 mg/dL [facility] Interpretation and review of laboratory results Abnormal [facility] Potassium [Moles/Vol] 4.5 mmol/L 3.5 - 5.1 mmol/L [facility] Sodium [Moles/Vol] 131 mmol/L Low 135 - 145 mmol/L [facility] Urea nitrogen [Mass/Vol] 25 mg/dL Male: 9-20 mg/dL; Female: 7-17 mg/dL [facility] CBC panel Auto (Bld)Ordered By: Ioana Arriaga on 10-12-2023 Erythrocyte distribution width (RBC) [Ratio] 14.8 % High 11.5 - 14.5 % [facility] Hematocrit (Bld) [Volume fraction] 37.5 % Male: 40.0-52.0 %; Female: 35.0-47.0 % [facility] Hemoglobin (Bld) [Mass/Vol] 12.4 g/dL 11.7 - 18.0 g/dL [facility] Interpretation and review of laboratory results Abnormal [facility] MCH (RBC) [Entitic mass] 28.1 pg 26.0 - 34.[address] [facility] MCHC (RBC) [Mass/Vol] 33.0 % 32.0 - 36.0 % [facility] MCV (RBC) [Entitic vol] 85.1 fL 80.0 - 98.[address] [facility] Platelet mean volume (Bld) [Entitic vol] 7.5 fL 7.4 - 12.[address] [facility] Platelets (Bld) [#/Vol] 355 10*3/uL 140 - 440 10*3/uL [facility] RBC (Bld) [#/Vol] 4.40 10*6/uL Male: 4.40-5.90; Female: 3.80-5.[address] [facility] WBC (Bld) [#/Vol] 7.4 10*3/uL 3.6 - 10.7 10*3/uL [facility] Laboratory - Chemistry and C hemistry - challengeon 10-12-2023 Glucose [Mass/Vol] 359 mg/dL High 70 - 100 mg/dL [facility] Glucose [Mass/Vol] 327 mg/dL High 70 - 100 mg/dL [facility] Glucose [Mass/Vol] 364 mg/dL High 70 - 100 mg/dL [facility] Glucose [Mass/Vol] 304 mg/dL High 70 - 100 mg/dL [facility] Glucose [Mass/Vol] 411 mg/dL High 70 - 100 mg/dL [facility] Glucose [Mass/Vol] 387 mg/dL High 70 - 100 mg/dL [facility] Laboratory - Microbiology an d Antimicrobial susceptibilityon 10-12-2023 Bacteria identified Cx Nom (Bld) No growth at [address] [facility] No Panel Informationon 10-12 Interpretation and review of laboratory results Abnormal [facility] Interpretation and review of laboratory results Abnormal [facility] Interpretation and review of laboratory results Abnormal [facility] Interpretation and review of laboratory results Abnormal [facility] Interpretation and review of laboratory results Abnormal [facility] Interpretation and review of laboratory results Abnormal [facility] XR Chest Single viewon 10-12 [facility] Radiology Study observation (narrative) [facility] XR Chest Single viewOrdered By: Alejandro Mooney on 10-12-[address] [facility] Work Phone: Bacteria identified Cx Nom ( Bld)Ordered By: Nayeli Reyna on 10-11-2023 Interpretation and review of laboratory results Abnormal [facility] CBC panel Auto (Bld)Ordered By: Alonzo Lee on 10-11-2023 Erythrocyte distribution width (RBC) [Ratio] 14.8 % High 11.5 - 14.5 % [facility] Hematocrit (Bld) [Volume fraction] 32.1 % Male: 40.0-52.0 %; Female: 35.0-47.0 % [facility] Hemoglobin (Bld) [Mass/Vol] 10.9 g/dL Low 11.7 - 18.0 g/dL [facility] Interpretation and review of laboratory results Abnormal [facility] MCH (RBC) [Entitic mass] 28.5 pg 26.0 - 34.[address] [facility] MCHC (RBC) [Mass/Vol] 33.8 % 32.0 - 36.0 % [facility] MCV (RBC) [Entitic vol] 84.2 fL 80.0 - 98.[address] [facility] Platelet mean volume (Bld) [Entitic vol] 7.9 fL 7.4 - 12.[address] [facility] Platelets (Bld) [#/Vol] 347 10*3/uL 140 - 440 10*3/uL [facility] RBC (Bld) [#/Vol] 3.82 10*6/uL Male: 4.40-5.90; Female: 3.80-5.[address] [facility] WBC (Bld) [#/Vol] 9.4 10*3/uL 3.6 - 10.7 10*3/uL [facility] Comprehensive metabolic 1998 panelon 10-11-2023 Albumin [Mass/Vol] 3.8 g/dL 3.5 - 5.0 g/dL [facility] ALP [Catalytic activity/Vol] 143 U/L High 38 - 126 U/L [facility] ALT [Catalytic activity/Vol] 28 U/L Male: 0-49 U/L; Female: 0-34 U/L [facility] Anion gap [Moles/Vol] 12 mmol/L 3 - 13 mmol/L [facility] AST [Catalytic activity/Vol] 20 U/L 15 - 46 U/L [facility] Bilirubin [Mass/Vol] 0.7 mg/dL 0.2 - 1 .3 mg/dL [facility] Calcium [Mass/Vol] 8.7 mg/dL 8.4 - 10. 4 mg/dL [facility] Chloride [Moles/Vol] 95 mmol/L Low 98 - 10 7 mmol/L [facility] CO2 [Moles/Vol] 22 mmol/L 22 - 30 mmol/L [facility] Creatinine [Mass/Vol] 1.30 mg/dL Male: 0.66-1.25 mg/dL; Female: 0.52-1.04 mg/dL [facility] GFR/1.73 sq M.predicted MDRD (S/P/Bld) [Vol rate/Area] 48.4 mL/min/{1.73_m2} Low - PINF [facility] Glucose [Mass/Vol] 397 mg/dL High 70 - 100 mg/dL [facility] Potassium [Moles/Vol] 4.2 mmol/L 3.5 - 5.1 mmol/L [facility] Protein [Mass/Vol] 6.5 g/dL 6.3 - 8.2 g/dL [facility] Sodium [Moles/Vol] 128 mmol/L Low 135 - 145 mmol/L [facility] Urea nitrogen [Mass/Vol] 28 mg/dL Male: 9-20 mg/dL; Female: 7-17 mg/dL [facility] Creatinine (U) [Mass/Vol]on 10-11-2023 CREATININE, URINE 10.6 mg/dL No Range [facility] Glucose (Bld) [Mass/Vol]Orde red By: Anna Figueroa on 10-11-2023 Glucose [Mass/Vol] 522 mg/dL Critically high 70 - 1 00 mg/dL [facility] Interpretation and review of laboratory results Abnormal [facility] Laboratory - Chemistry and C hemistry - challengeon 10-11-2023 Glucose [Mass/Vol] 401 mg/dL High 70 - 100 mg/dL [facility] Sodium (24H U) [Mass/Vol] 71 mmol/L 30 - 90 mmol/L [facility] Glucose [Mass/Vol] mg/dL High 70 - 100 mg/dL [facility] Glucose [Mass/Vol] mg/dL High 70 - 100 mg/dL [facility] Glucose [Mass/Vol] 447 mg/dL High 70 - 100 mg/dL [facility] Glucose [Mass/Vol] 354 mg/dL High 70 - 100 mg/dL [facility] Magnesium [Mass/Vol] 1.3 mg/dL Low 1.6 - 2 .3 mg/dL [facility] Glucose [Mass/Vol] 386 mg/dL High 70 - 100 mg/dL [facility] Laboratory - Microbiology an d Antimicrobial susceptibilityOrdered By: Nayeli Reyna on 10-11-2023 Bacteria identified Cx Nom (Bld) Acinetobacter lwoffii Critically abnormal [facility] No Panel Informationon 10-11 Interpretation and review of laboratory results Abnormal [facility] Interpretation and review of laboratory results Normal [facility] OSMOLALITY, URINE 318 [facility] Interpretation and review of laboratory results Normal [facility] Interpretation and review of laboratory results Abnormal [facility] Interpretation and review of laboratory results Abnormal [facility] Interpretation and review of laboratory results Abnormal [facility] Interpretation and review of laboratory results Abnormal [facility] Interpretation and review of laboratory results Abnormal [facility] Interpretation and review of laboratory results Abnormal [facility] Glucose (Bld) [Mass/Vol]Orde red By: Abner Vieyra on 10-10-2023 Glucose [Mass/Vol] 45 mg/dL Critically low 70 - 10 0 mg/dL [facility] Interpretation and review of laboratory results Abnormal [facility] Laboratory - Chemistry and C hemistry - challengeon 10-10-2023 Glucose [Mass/Vol] 404 mg/dL High 70 - 100 mg/dL [facility] Glucose [Mass/Vol] 405 mg/dL High 70 - 100 mg/dL [facility] Glucose [Mass/Vol] 353 mg/dL High 70 - 100 mg/dL [facility] Glucose [Mass/Vol] 253 mg/dL High 70 - 100 mg/dL [facility] Glucose [Mass/Vol] 254 mg/dL High 70 - 100 mg/dL [facility] Glucose [Mass/Vol] 258 mg/dL High 70 - 100 mg/dL [facility] Glucose [Mass/Vol] 248 mg/dL High 70 - 100 mg/dL [facility] Glucose [Mass/Vol] 101 mg/dL High 70 - 100 mg/dL [facility] Glucose [Mass/Vol] 67 mg/dL Low 70 - 100 mg/dL [facility] Glucose [Mass/Vol] mg/dL Low 70 - 100 mg/dL [facility] Glucose [Mass/Vol] mg/dL Low 70 - 100 mg/dL [facility] No Panel Informationon 10-10 Interpretation and review of laboratory results Abnormal [facility] Interpretation and review of laboratory results Abnormal [facility] Interpretation and review of laboratory results Abnormal [facility] Interpretation and review of laboratory results Abnormal [facility] Interpretation and review of laboratory results Abnormal [facility] Interpretation and review of laboratory results Abnormal [facility] Interpretation and review of laboratory results Abnormal [facility] Interpretation and review of laboratory results Abnormal [facility] Interpretation and review of laboratory results Abnormal [facility] Interpretation and review of laboratory results Abnormal [facility] Interpretation and review of laboratory results Abnormal [facility] Bacteria identified Cx Nom ( U)Ordered By: Tessy Gonzalez on 10-09-2023 Interpretation and review of laboratory results Normal [facility] Basic metabolic 1998 panelon 10-09-2023 Anion gap [Moles/Vol] 9 mmol/L 3 - 13 mmol/L [facility] Calcium [Mass/Vol] 8.7 mg/dL 8.4 - 10. 4 mg/dL [facility] Chloride [Moles/Vol] 98 mmol/L 98 - 10 7 mmol/L [facility] CO2 [Moles/Vol] 23 mmol/L 22 - 30 mmol/L [facility] Creatinine [Mass/Vol] 0.76 mg/dL Male: 0.66-1.25 mg/dL; Female: 0.52-1.04 mg/dL [facility] GFR/1.73 sq M.predicted MDRD (S/P/Bld) [Vol rate/Area] - PINF [facility] Glucose [Mass/Vol] 344 mg/dL High 70 - 100 mg/dL [facility] Interpretation and review of laboratory results Abnormal [facility] Potassium [Moles/Vol] 4.5 mmol/L 3.5 - 5.1 mmol/L [facility] Sodium [Moles/Vol] 130 mmol/L Low 135 - 145 mmol/L [facility] Urea nitrogen [Mass/Vol] 23 mg/dL Male: 9-20 mg/dL; Female: 7-17 mg/dL [facility] Laboratory - Chemistry and C hemistry - challengeon 10-09-2023 Glucose [Mass/Vol] 117 mg/dL High 70 - 100 mg/dL [facility] Glucose [Mass/Vol] 82 mg/dL 70 - 100 mg/dL [facility] Glucose [Mass/Vol] 176 mg/dL High 70 - 100 mg/dL [facility] Glucose [Mass/Vol] 210 mg/dL High 70 - 100 mg/dL [facility] Glucose [Mass/Vol] 207 mg/dL High 70 - 100 mg/dL [facility] Glucose [Mass/Vol] 318 mg/dL High 70 - 100 mg/dL [facility] Glucose [Mass/Vol] 377 mg/dL High 70 - 100 mg/dL [facility] Glucose [Mass/Vol] 337 mg/dL High 70 - 100 mg/dL [facility] Average glucose Estimated from glycated hemoglobin (Bld) [Mass/Vol] 174 mg/dL [facility] Laboratory - Drug toxicology on 10-09-2023 Vancomycin [Mass/Vol] 11.5 ug/mL Low 15.0 - 20.0 ug/mL [facility] Laboratory - Hematology and Cell countson 10-09-2023 HbA1c (Bld) [Mass fraction] 7.7 % High NINF - 5.7 % [facility] Laboratory - Microbiology an d Antimicrobial susceptibilityOrdered By: Tessy Gonzalez on 10-09-2023 Bacteria identified Cx Nom (U) No growth (<1,000 CFU/mL) [facility] No Panel Informationon 10-09 Interpretation and review of laboratory results Abnormal [facility] Interpretation and review of laboratory results Normal [facility] Interpretation and review of laboratory results Abnormal [facility] Interpretation and review of laboratory results Abnormal [facility] Interpretation and review of laboratory results Abnormal [facility] Interpretation and review of laboratory results Abnormal [facility] Interpretation and review of laboratory results Abnormal [facility] Interpretation and review of laboratory results Abnormal [facility] Interpretation and review of laboratory results Abnormal [facility] Interpretation and review of laboratory results Abnormal [facility] Basic metabolic 1998 panelon 10-08-2023 Anion gap [Moles/Vol] 8 mmol/L 3 - 13 mmol/L [facility] Calcium [Mass/Vol] 8.1 mg/dL Low 8.4 - 10. 4 mg/dL [facility] Chloride [Moles/Vol] 100 mmol/L 98 - 10 7 mmol/L [facility] CO2 [Moles/Vol] 22 mmol/L 22 - 30 mmol/L [facility] Creatinine [Mass/Vol] 1.09 mg/dL Male: 0.66-1.25 mg/dL; Female: 0.52-1.04 mg/dL [facility] GFR/1.73 sq M.predicted MDRD (S/P/Bld) [Vol rate/Area] 59.7 mL/min/{1.73_m2} Low - PINF [facility] Glucose [Mass/Vol] 288 mg/dL High 70 - 100 mg/dL [facility] Potassium [Moles/Vol] 4.2 mmol/L 3.5 - 5.1 mmol/L [facility] Sodium [Moles/Vol] 130 mmol/L Low 135 - 145 mmol/L [facility] Urea nitrogen [Mass/Vol] 34 mg/dL Male: 9-20 mg/dL; Female: 7-17 mg/dL [facility] CBC W Auto Differential pane l (Bld)Ordered By: Sixto Yao on 10-08-2023 Basophils (Bld) [#/Vol] 0.1 10*3/uL 0.0 - 0.2 10*3/uL [facility] Basophils/100 WBC (Bld) 0.8 % 0.0 - 2.0 % [facility] Eosinophils (Bld) [#/Vol] 0.1 10*3/uL 0.0 - 0.5 10*3/uL [facility] Eosinophils/100 WBC (Bld) 0.9 % Low 1.0 - 6.0 % [facility] Erythrocyte distribution width (RBC) [Ratio] 15.7 % High 11.5 - 14.5 % [facility] Hematocrit (Bld) [Volume fraction] 31.6 % Male: 40.0-52.0 %; Female: 35.0-47.0 % [facility] Hemoglobin (Bld) [Mass/Vol] 10.6 g/dL Low 11.7 - 18.0 g/dL [facility] Interpretation and review of laboratory results Abnormal [facility] Lymphocytes (Bld) [#/Vol] 2.7 10*3/uL 1.0 - 4.3 10*3/uL [facility] Lymphocytes/100 WBC (Bld) 26.5 % 20.0 - 40.0 % [facility] MCH (RBC) [Entitic mass] 28.5 pg 26.0 - 34.[address] [facility] MCHC (RBC) [Mass/Vol] 33.5 % 32.0 - 36.0 % [facility] MCV (RBC) [Entitic vol] 84.9 fL 80.0 - 98.[address] [facility] Monocytes (Bld) [#/Vol] 0.7 10*3/uL 0.0 - 0.8 10*3/uL [facility] Monocytes/100 WBC (Bld) 7.3 % 2.0 - 10.0 % [facility] Neutrophils (Bld) [#/Vol] 6.5 10*3/uL 1.8 - 7.0 10*3/uL [facility] Neutrophils/100 WBC (Bld) 64.5 % 40.0 - 80.0 % [facility] Nucleated RBC/100 WBC (Bld) [Ratio] 0.1 % [facility] Platelet mean volume (Bld) [Entitic vol] 8.3 fL 7.4 - 12.[address] [facility] Platelets (Bld) [#/Vol] 339 10*3/uL 140 - 440 10*3/uL [facility] RBC (Bld) [#/Vol] 3.72 10*6/uL Male: 4.40-5.90; Female: 3.80-5.[address] [facility] WBC (Bld) [#/Vol] 10.1 10*3/uL 3.6 - 10.7 10*3/uL [facility] CT Abdomen and Pelvis W cont rast Erica 10-08-2023 [facility] Radiology Study observation (narrative) [facility] CT Abdomen and Pelvis W cont rast IVOrdered By: Bao Hill on 10-08-[address] [facility] Work Phone: Hepatic function 2000 panelo n 10-08-2023 Albumin [Mass/Vol] 3.2 g/dL Low 3.5 - 5.0 g/dL [facility] ALP [Catalytic activity/Vol] 143 U/L High 38 - 126 U/L [facility] ALT [Catalytic activity/Vol] 42 U/L Male: 0-49 U/L; Female: 0-34 U/L [facility] AST [Catalytic activity/Vol] 33 U/L 15 - 46 U/L [facility] Bilirubin [Mass/Vol] 0.9 mg/dL 0.2 - 1 .3 mg/dL [facility] Bilirubin.conjugated [Mass/Vol] 0.0 mg/dL 0.0 - 0.3 mg/dL [facility] Protein [Mass/Vol] 5.9 g/dL Low 6.3 - 8.2 g/dL [facility] Laboratory - Chemistry and C hemistry - challengeon 10-08-2023 Glucose [Mass/Vol] 373 mg/dL High 70 - 100 mg/dL [facility] Glucose [Mass/Vol] 348 mg/dL High 70 - 100 mg/dL [facility] Glucose [Mass/Vol] 386 mg/dL High 70 - 100 mg/dL [facility] Glucose [Mass/Vol] 271 mg/dL High 70 - 100 mg/dL [facility] Ammonia (P) [Moles/Vol] 29 umol/L 9 - 30 umol/L [facility] MRSA DNA YASIR+probe Ql (Nose) on 10-08-2023 Interpretation and review of laboratory results Abnormal [facility] mecA gene Detected Abnormal Not Detected [facility] Staphylococcus aureus Detected Abnormal Not Detected [facility] No Panel Informationon 10-08 Interpretation and review of laboratory results Abnormal [facility] Interpretation and review of laboratory results Abnormal [facility] Interpretation and review of laboratory results Abnormal [facility] Interpretation and review of laboratory results Abnormal [facility] Interpretation and review of laboratory results Abnormal [facility] Interpretation and review of laboratory results Normal [facility] No Panel InformationOrdered By: Memo Bergman on 10-08-2023 Targets Detected Not detected [facility] US Abdomen limitedon 023 [facility] Radiology Study observation (narrative) [facility] Abdomen limitedOrdered By : Javy Urias on 10-08-[address] [facility] Work Phone: CBC W Auto Differential pane l (Bld)Ordered By: Olamide Espino on 10-07-2023 Basophils (Bld) [#/Vol] 0.0 10*3/uL 0.0 - 0.2 10*3/uL [facility] Basophils/100 WBC (Bld) 0.2 % 0.0 - 2.0 % [facility] Eosinophils (Bld) [#/Vol] 0.0 10*3/uL 0.0 - 0.5 10*3/uL [facility] Eosinophils/100 WBC (Bld) 0.2 % Low 1.0 - 6.0 % [facility] Erythrocyte distribution width (RBC) [Ratio] 14.2 % 11.5 - 14.5 % [facility] Hematocrit (Bld) [Volume fraction] 41.5 % Male: 40.0-52.0 %; Female: 35.0-47.0 % [facility] Hemoglobin (Bld) [Mass/Vol] 13.2 g/dL 11.7 - 18.0 g/dL [facility] Immature granulocytes (Bld) [#/Vol] 0.1 10*3/uL High NINF - 0.0 10*3/uL [facility] Immature granulocytes/100 WBC (Bld) 0.8 % High NINF - 0.0 % [facility] Interpretation and review of laboratory results Abnormal [facility] Lymphocytes (Bld) [#/Vol] 1.0 10*3/uL 1.0 - 4.3 10*3/uL [facility] Lymphocytes/100 WBC (Bld) 7.5 % Low 20.0 - 40.0 % [facility] MCH (RBC) [Entitic mass] 27.8 pg 26.0 - 34.0 pg [facility] MCHC (RBC) [Mass/Vol] 31.8 % Low 32.0 - 36.0 % [facility] MCV (RBC) [Entitic vol] 87.4 fL 80.0 - 98.0 fL [facility] Monocytes (Bld) [#/Vol] 0.8 10*3/uL 0.0 - 0.8 10*3/uL [facility] Monocytes/100 WBC (Bld) 5.9 % 2.0 - 10.0 % [facility] Neutrophils (Bld) [#/Vol] 11.3 10*3/uL High 1.8 - 7.0 10*3/uL [facility] Neutrophils/100 WBC (Bld) 85.4 % High 40.0 - 80.0 % [facility] Platelet mean volume (Bld) [Entitic vol] 9.4 fL 7.4 - 12.4 fL [facility] Platelets (Bld) [#/Vol] 438 10*3/uL 140 - 440 10*3/uL [facility] RBC (Bld) [#/Vol] 4.75 10*6/uL Male: 4.40-5.90; Female: 3.80-5.20 [facility] WBC (Bld) [#/Vol] 13.3 10*3/uL High 3.6 - 10.7 10*3/uL [facility] CT Head WO contraston 2022 Mild parenchymal vol ume loss. No evidence of acute intracranial process. 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 Report Dictated on Electronically Signed By: Angel Randhawa MD Electronically Signed Date/Time: 10/07/2023 7:47 AM EST [facility] Patient Name: WILL ALVARADO : 1965 [...] are not adequately visualized for proper evaluation. [facility] Angel Randhawa MD - 10/07/2023 Patient Name: [...] Electronically Signed Date/Time: 10/07/2023 7:47 AM EST [facility] Radiology Study observation (narrative) [facility] CT Head WO contrastOrdered B y: Angel Randhawa on 10-07-[address] [facility] Work Phone: Comprehensive metabolic 1998 panelon 10-07-2023 Albumin [Mass/Vol] 4.1 g/dL 3.5 - 5.0 g/dL [facility] ALP [Catalytic activity/Vol] 133 U/L High 38 - 126 U/L [facility] ALT [Catalytic activity/Vol] 46 U/L Male: 0-49 U/L; Female: 0-34 U/L [facility] Anion gap [Moles/Vol] 11 mmol/L 3 - 13 mmol/L [facility] AST [Catalytic activity/Vol] 36 U/L 15 - 46 U/L [facility] Bilirubin [Mass/Vol] 0.4 mg/dL 0.2 - 1 .3 mg/dL [facility] Calcium [Mass/Vol] 8.8 mg/dL 8.4 - 10. 4 mg/dL [facility] Chloride [Moles/Vol] 100 mmol/L 98 - 10 7 mmol/L [facility] CO2 [Moles/Vol] 27 mmol/L 22 - 30 mmol/L [facility] Creatinine [Mass/Vol] 0.74 mg/dL Male: 0.66-1.25 mg/dL; Female: 0.52-1.04 mg/dL [facility] GFR/1.73 sq M.predicted MDRD (S/P/Bld) [Vol rate/Area] - PINF [facility] Glucose [Mass/Vol] 120 mg/dL High 70 - 100 mg/dL [facility] Interpretation and review of laboratory results Abnormal [facility] Potassium [Moles/Vol] 4.4 mmol/L 3.5 - 5.1 mmol/L [facility] Protein [Mass/Vol] 7.7 g/dL 6.3 - 8.2 g/dL [facility] Sodium [Moles/Vol] 138 mmol/L 135 - 145 mmol/L [facility] Urea nitrogen [Mass/Vol] 20 mg/dL Male: 9-20 mg/dL; Female: 7-17 mg/dL [facility] Ethanol (Bld) [Mass/Vol]on 12-07-2022 Ethanol [Mass/Vol] g/dL 0.000 - 0.010 g/dL [facility] Laboratory - Chemistry and C hemistry - challengeon 10-07-2023 Glucose [Mass/Vol] 267 mg/dL High 70 - 100 mg/dL [facility] Procalcitonin [Mass/Vol] 0.83 ng/mL High 0.00 - 0.09 ng/mL [facility] Lipase [Catalytic activity/Vol] 34 U/L 23 - 300 U/L [facility] Glucose [Mass/Vol] 176 mg/dL High 70 - 100 mg/dL [facility] Glucose [Mass/Vol] 111 mg/dL High 70 - 100 mg/dL [facility] Glucose [Mass/Vol] 81 mg/dL 70 - 100 mg/dL [facility] Glucose [Mass/Vol] 91 mg/dL 70 - 100 mg/dL [facility] Glucose [Mass/Vol] 100 mg/dL 70 - 100 mg/dL [facility] Glucose [Mass/Vol] 129 mg/dL High 70 - 100 mg/dL [facility] Glucose [Mass/Vol] 129 mg/dL [facility] Glucose [Mass/Vol] 129 mg/dL [facility] Glucose [Mass/Vol] 129 mg/dL High 70 - 100 mg/dL [facility] Glucose [Mass/Vol] 151 mg/dL [facility] Glucose [Mass/Vol] 151 mg/dL High 70 - 100 mg/dL [facility] Lactate [Moles/Vol] 1.2 mmol/L 0.7 - 2. 0 mmol/L [facility] Glucose [Mass/Vol] 100 mg/dL 70 - 100 mg/dL [facility] Glucose [Mass/Vol] 68 mg/dL Low 70 - 100 mg/dL [facility] Laboratory - Drug toxicology Ordered By: Annie Flynn on 10-07-2023 Amphetamines Screen method >1000 ng/mL Ql (U) Negative [facility] Barbiturates Screen method >200 ng/mL Ql (U) Negative [facility] Benzodiazepines Ql (U) Negative [facility] Methadone Screen Ql (U) Negative [facility] Opiates Screen Ql (U) Negative [facility] oxyCODONE Ql (U) Negative [facility] Phencyclidine Ql (U) Negative [facility] No Panel Informationon 10-07 Interpretation and review of laboratory results Abnormal [facility] Interpretation and review of laboratory results Normal [facility] Interpretation and review of laboratory results Abnormal [facility] Interpretation and review of laboratory results Abnormal [facility] Interpretation and review of laboratory results Normal [facility] Interpretation and review of laboratory results Normal [facility] Interpretation and review of laboratory results Normal [facility] Interpretation and review of laboratory results Abnormal [facility] Interpretation and review of laboratory results Normal [facility] Interpretation and review of laboratory results Normal [facility] Interpretation and review of laboratory results Abnormal [facility] Interpretation and review of laboratory results Normal [facility] Interpretation and review of laboratory results Abnormal [facility] Interpretation and review of laboratory results Normal [facility] Interpretation and review of laboratory results Normal [facility] Interpretation and review of laboratory results Abnormal [facility] No Panel InformationOrdered By: Annie Flynn on 10-07-2023 COCAINE METAB. SCREEN Negative [facility] Procalcitonin [Mass/Vol]on 12-07-2022 Interpretation and review of laboratory results Abnormal [facility] Respiratory pathogens DNA an d RNA panel YASIR+non-probe (Nph)on 10-07-2023 Adenovirus Not detected Not Detected [facility] B. pertussis DNA YASIR+probe Ql (Unsp spec) Not detected Not Detected [facility] Bordetella parapertussis Not detected Not Detected [facility] Chlamydia pneumoniae Not detected Not Detected [facility] Coronavirus 229E Not detected Not Detected [facility] Coronavirus HKU1 Not detected Not Detected [facility] Coronavirus NL63 Not detected Not Detected [facility] Coronavirus OC43 Not detected Not Detected [facility] FLUAV RNA YASIR+non-probe Ql (Nph) Not detected Not Detected [facility] FLUBV RNA YASIR+non-probe Ql (Nph) Not detected Not Detected [facility] Human Metapneumovirus Not detected Not Detected [facility] Human Rhinovirus/Enterovirus Not detected Not Detected [facility] Interpretation and review of laboratory results Normal [facility] Mycoplasma pneumoniae Not detected Not Detected [facility] Parainfluenza 1 Not detected Not Detected [facility] Parainfluenza 2 Not detected Not Detected [facility] Parainfluenza 3 Not detected Not Detected [facility] Parainfluenza 4 Not detected Not Detected [facility] Respiratory Syncytial Virus Not detected Not Detected [facility] SARS-CoV-2 (COVID-19) RNA YASIR+non-probe Ql (Nph) Not detected Not Detected [facility] Urinalysis complete panel (U )on 10-07-2023 Bacteria LM.HPF (Urine sed) [#/Area] Negative Negative /HPF [facility] Bilirubin Ql (U) Negative Negative mg/dL [facility] Clarity (U) Clear Clear [facility] Color (U) Yellow Lt. Yellow [facility] Epithelial cells.squamous LM.HPF (Urine sed) [#/Area] Negative [facility] Glucose Ql (U) 300 mg/dL Abnormal Normal (<70) [facility] Hemoglobin Ql (U) Negative Negative mg/dL [facility] Interpretation and review of laboratory results Abnormal [facility] Ketones (U) [Mass/Vol] Negative Negat bernard mg/dL [facility] Leukocyte esterase Test strip Ql (U) Negative Negative Kat/uL [facility] Mucus LM.HPF (Urine sed) [#/Area] Few Negative /LPF [facility] Nitrite Ql (U) Negative Negative [facility] pH (U) 6.0 [pH] 5.0 - 8.[address] [facility] Protein (U) [Mass/Vol] 300 mg/dL Abnormal Negative [facility] RBC LM.HPF (Urine sed) [#/Area] 0-[address] [facility] Specific gravity (U) [Rel density] 1.023 1.005 - 1.[address] [facility] Urobilinogen (U) [Mass/Vol] Normal Normal (0-1) mg/dL [facility] Volume, Urine [address] [facility] WBC LM.HPF (Urine sed) [#/Area] 3-5 [facility] XR Chest Single viewon 10-07 [facility] Radiology Study observation (narrative) [facility] Whole blood hemoglobin A1c/t otal hemoglobin ratio (mass fraction)Ordered By: Jared Guzman on 09-20-2023 HbA1c (Bld) [Mass fraction] 7.3 % 3.8-5.6 [facility] Comment on above: Normal < 5.7 % Predi abetic 5.7 - 6.4 % Diabetic >or= 6.5 % Please note range changes. Basic metabolic 1998 panelon 08-19-2023 Anion gap [Moles/Vol] 5 mmol/L 3 - 13 mmol/L [facility] Calcium [Mass/Vol] 8.4 mg/dL 8.4 - 10. 4 mg/dL [facility] Chloride [Moles/Vol] 99 mmol/L 98 - 10 7 mmol/L [facility] CO2 [Moles/Vol] 26 mmol/L 22 - 30 mmol/L [facility] Creatinine [Mass/Vol] 1.00 mg/dL Male: 0.66-1.25 mg/dL; Female: 0.52-1.04 mg/dL [facility] GFR/1.73 sq M.predicted MDRD (S/P/Bld) [Vol rate/Area] 66.3 mL/min/{1.73_m2} - PINF [facility] Comment on above: Calculation based on the Chronic Kidney Disease Epidemiology Collaboration (CKD-EPI) equation refit without adjustment for race Glucose [Mass/Vol] 223 mg/dL High 70 - 100 mg/dL [facility] Interpretation and review of laboratory results Abnormal [facility] Potassium [Moles/Vol] 4.4 mmol/L 3.5 - 5.1 mmol/L [facility] Sodium [Moles/Vol] 130 mmol/L Low 135 - 145 mmol/L [facility] Urea nitrogen [Mass/Vol] 23 mg/dL Male: 9-20 mg/dL; Female: 7-17 mg/dL [facility] CBC panel Auto (Bld)Ordered By: Joel Houston on 08-19-2023 Erythrocyte distribution width (RBC) [Ratio] 15.3 % High 11.5 - 14.5 % [facility] Hematocrit (Bld) [Volume fraction] 36.3 % Male: 40.0-52.0 %; Female: 35.0-47.0 % [facility] Hemoglobin (Bld) [Mass/Vol] 12.2 g/dL 11.7 - 18.0 g/dL [facility] Interpretation and review of laboratory results Abnormal [facility] MCH (RBC) [Entitic mass] 27.7 pg 26.0 - 34.[address] [facility] MCHC (RBC) [Mass/Vol] 33.7 % 32.0 - 36.0 % [facility] MCV (RBC) [Entitic vol] 82.2 fL 80.0 - 98.[address] [facility] Platelet mean volume (Bld) [Entitic vol] 7.8 fL 7.4 - 12.[address] [facility] Platelets (Bld) [#/Vol] 402 10*3/uL 140 - 440 10*3/uL [facility] RBC (Bld) [#/Vol] 4.41 10*6/uL Male: 4.40-5.90; Female: 3.80-5.[address] [facility] WBC (Bld) [#/Vol] 8.6 10*3/uL 3.6 - 10.7 10*3/uL [facility] Laboratory - Chemistry and C hemistry - challengeon 08-19-2023 Glucose [Mass/Vol] 196 mg/dL High 70 - 100 mg/dL [facility] Glucose [Mass/Vol] 255 mg/dL High 70 - 100 mg/dL [facility] Glucose [Mass/Vol] 236 mg/dL High 70 - 100 mg/dL [facility] No Panel Informationon 08-19 Interpretation and review of laboratory results Abnormal [facility] Performed [facility]: [facility], [address] [facility] [address] CLIA ID: [id number] [facility] Interpretation and review of laboratory results Abnormal [facility] Performed by: [facility], [address] [facility] [address] CLIA ID: [id number] [facility] Interpretation and review of laboratory results Abnormal [facility] Performed by: [facility], [address] [place] [id number] CLIA ID: [id number] [facility] Sinus bradycardia Left bundle branch block Prolonged QT interval Compared to ECG 08/08/2023 06:58:13 Left bundle-branch block now present Electronically Signed On 08-19-2023 7:37:13 EDT by Nicolas Byrne D O - 08/19/2023 IMPRESSION: Sinus bradycardia Left bundle branch block Prolonged QT interval Compared to ECG 08/08/2023 06:58:13 Left bundle-branch block now present Electronically Signed On 08-19-2023 7:37:13 EDT by Nicolas Rose [facility] No Panel InformationOrdered By: Nicolas Rose on 08-19-2023 P [place] 40 degrees [facility] Work Phone: [place] Interval 194 ms [employer] [facility] Work Phone: QRS [place] -30 degrees [employer] [facility] Work Phone: QRSD Interval 140 ms [facility] Work Phone: QT Interval 632 ms [employer] [facility] Work Phone: QTC Interval 563 ms [facility] Work Phone: T Wave [place] -4 degrees [facility] Work Phone: [employer] [facility] Work Phone: Vital signsOrdered By: Harman Rose on 08-19-2023 Heart rate 48 /min bpm [facility] Work Phone: Basic metabolic 1998 panelon 08-18-2023 Anion gap [Moles/Vol] 6 mmol/L 3 - 13 mmol/L [facility] Calcium [Mass/Vol] 8.0 mg/dL Low 8.4 - 10. 4 mg/dL [facility] Chloride [Moles/Vol] 100 mmol/L 98 - 10 7 mmol/L [facility] CO2 [Moles/Vol] 24 mmol/L 22 - 30 mmol/L [facility] Creatinine [Mass/Vol] 0.76 mg/dL Male: 0.66-1.25 mg/dL; Female: 0.52-1.04 mg/dL [facility] GFR/1.73 sq M.predicted MDRD (S/P/Bld) [Vol rate/Area] - PINF [facility] Comment on above: Calculation based on the Chronic Kidney Disease Epidemiology Collaboration (CKD-EPI) equation refit without adjustment for race Glucose [Mass/Vol] 311 mg/dL High 70 - 100 mg/dL [facility] Interpretation and review of laboratory results Abnormal [facility] Potassium [Moles/Vol] 4.2 mmol/L 3.5 - 5.1 mmol/L [facility] Sodium [Moles/Vol] 130 mmol/L Low 135 - 145 mmol/L [facility] Urea nitrogen [Mass/Vol] 24 mg/dL Male: 9-20 mg/dL; Female: 7-17 mg/dL [facility] CBC W Auto Differential pane l (Bld)Ordered By: Alex Kwok on 08-18-2023 Basophils (Bld) [#/Vol] 0.1 10*3/uL 0.0 - 0.2 10*3/uL [facility] Basophils/100 WBC (Bld) 0.7 % 0.0 - 2.0 % [facility] Eosinophils (Bld) [#/Vol] 0.2 10*3/uL 0.0 - 0.5 10*3/uL [facility] Eosinophils/100 WBC (Bld) 1.2 % 1.0 - 6.0 % [facility] Erythrocyte distribution width (RBC) [Ratio] 15.2 % High 11.5 - 14.5 % [facility] Hematocrit (Bld) [Volume fraction] 36.1 % Male: 40.0-52.0 %; Female: 35.0-47.0 % [facility] Hemoglobin (Bld) [Mass/Vol] 12.2 g/dL 11.7 - 18.0 g/dL [facility] Interpretation and review of laboratory results Abnormal [facility] Lymphocytes (Bld) [#/Vol] 2.3 10*3/uL 1.0 - 4.3 10*3/uL [facility] Lymphocytes/100 WBC (Bld) 17.5 % Low 20.0 - 40.0 % [facility] MCH (RBC) [Entitic mass] 28.2 pg 26.0 - 34.[address] [facility] MCHC (RBC) [Mass/Vol] 33.9 % 32.0 - 36.0 % [facility] MCV (RBC) [Entitic vol] 83.0 fL 80.0 - 98.[address] [facility] Monocytes (Bld) [#/Vol] 1.2 10*3/uL High 0.0 - 0.8 10*3/uL [facility] Monocytes/100 WBC (Bld) 8.8 % 2.0 - 10.0 % [facility] Neutrophils (Bld) [#/Vol] 9.5 10*3/uL High 1.8 - 7.0 10*3/uL [facility] Neutrophils/100 WBC (Bld) 71.8 % 40.0 - 80.0 % [facility] Nucleated RBC/100 WBC (Bld) [Ratio] 0.0 % [facility] Platelet mean volume (Bld) [Entitic vol] 7.7 fL 7.4 - 12.[address] [facility] Platelets (Bld) [#/Vol] 388 10*3/uL 140 - 440 10*3/uL [facility] RBC (Bld) [#/Vol] 4.35 10*6/uL Male: 4.40-5.90; Female: 3.80-5.[address] [facility] WBC (Bld) [#/Vol] 13.2 10*3/uL High 3.6 - 10.7 10*3/uL [facility] Laboratory - Chemistry and C hemistry - challengeon 08-18-2023 Glucose [Mass/Vol] 294 mg/dL High 70 - 100 mg/dL [facility] Glucose [Mass/Vol] 339 mg/dL High 70 - 100 mg/dL [facility] Glucose [Mass/Vol] 363 mg/dL High 70 - 100 mg/dL [facility] Glucose [Mass/Vol] 398 mg/dL High 70 - 100 mg/dL [facility] No Panel Informationon 08-18 Interpretation and review of laboratory results Abnormal [facility] Performed by: [facility], [address] [place] [address] [place] [address] CLIA ID: [id number] [facility] Interpretation and review of laboratory results Abnormal [facility] Performed by: [facility], [address], [facility] [address] CLIA ID: [id number] [facility] Interpretation and review of laboratory results Abnormal [facility] Performed by: [facility], [address], [facility] [address] CLIA ID: [id number] [facility] Interpretation and review of laboratory results Abnormal [facility] Performed by: [facility], [address], [facility] [address] CLIA ID: [id number] [facility] Basophil percentageon 2022 Sodium [Moles/Vol] 132 mmol/L 136-[address] [facility] Basophil percentageOrdered B y: Jared Guzman on 08-17-2023 Bilirubin [Mass/Vol] 0.60 mg/dL 0.20-1.00 [facility] Comment on above: For patients on eltr ombopag therapy, use of [employer] [place] TBIL is not recommended. Chloride [Moles/Vol] 100 mmol/L 98-107 [facility] Glucose [Mass/Vol] 240 mg/dL 74-106 [facility] Comment on above: Glucose result great er than or equal to 200 mg/dLsuggests DIABETES MELLITUS per A.D.A. criteria. Potassium [Moles/Vol] 4.3 mmol/L 3.5-5.1 [facility] Protein [Mass/Vol] 6.8 g/dL 6.4-8.2 [facility] WBC (Bld) [#/Vol] 9.3 10*3/uL 4.4-11.0 [facility] Blood erythrocytes count (nu mber/volume)Ordered By: Jared Guzman on 08-17-2023 RBC (Bld) [#/Vol] 4.64 10*6/uL 4.2-5.[address] [facility] Blood hemoglobin measurement (mass/volume)Ordered By: Jared Guzman on 08-17-2023 Hemoglobin (Bld) [Mass/Vol] 12.4 g/dL 12.0-15.0 [facility] Blood platelet mean volumeOr dered By: Jared Guzman on 08-17-2023 Platelet mean volume (Bld) [Entitic vol] 9.8 fL 6.2-12.0 [facility] CBC W Auto Differential pane l (Bld)Ordered By: Bisi Bloom on 08-17-2023 Basophils (Bld) [#/Vol] 0.1 10*3/uL 0.0 - 0.2 10*3/uL [facility] Basophils/100 WBC (Bld) 0.8 % 0.0 - 2.0 % [facility] Eosinophils (Bld) [#/Vol] 0.1 10*3/uL 0.0 - 0.5 10*3/uL [facility] Eosinophils/100 WBC (Bld) 0.4 % Low 1.0 - 6.0 % [facility] Erythrocyte distribution width (RBC) [Ratio] 15.3 % High 11.5 - 14.5 % [facility] Hematocrit (Bld) [Volume fraction] 37.7 % Male: 40.0-52.0 %; Female: 35.0-47.0 % [facility] Hemoglobin (Bld) [Mass/Vol] 12.5 g/dL 11.7 - 18.0 g/dL [facility] Interpretation and review of laboratory results Abnormal [facility] Lymphocytes (Bld) [#/Vol] 3.6 10*3/uL 1.0 - 4.3 10*3/uL [facility] Lymphocytes/100 WBC (Bld) 24.4 % 20.0 - 40.0 % [facility] MCH (RBC) [Entitic mass] 27.2 pg 26.0 - 34.0 pg [facility] MCHC (RBC) [Mass/Vol] 33.1 % 32.0 - [...] (Bld) 65.9 % 40.0 - 80.0 % [facility] Nucleated RBC/100 WBC (Bld) [Ratio] 0.0 % [facility] Platelet mean volume (Bld) [Entitic vol] 7.5 fL 7.4 - 12.4 fL [facility] Platelets (Bld) [#/Vol] 468 10*3/uL High 140 - 440 10*3/uL [facility] RBC (Bld) [#/Vol] 4.57 10*6/uL Male: 4.40-5.90; Female: 3.80-5.20 [facility] WBC (Bld) [#/Vol] 14.7 10*3/uL High 3.6 - 10.7 10*3/uL [facility] CT Abdomen and Pelvis W cont rast [...] MD Electronically Signed Date/Time: 08/17/2023 4:21 PM [facility] Patient Name: WILL ALVARADO : [...] in size since November 2020. [facility] Milton Guy MD - 08/17/2023 Patient [...] Electronically Signed Date/Time: 08/17/2023 4:21 PM EDT [facility] Radiology Study observation (narrative) [facility] CT Abdomen and Pelvis W cont rast IVOrdered By: Milton Guy on 08-17-2023 [facility] Work Phone: Comprehensive metabolic 1998 panelon 08-17-2023 Albumin [Mass/Vol] 4.0 g/dL 3.5 - 5.0 g/dL [facility] ALP [Catalytic activity/Vol] 136 U/L High 38 - 126 U/L [facility] ALT [Catalytic activity/Vol] 47 U/L Male: 0-49 U/L; Female: 0-34 U/L [facility] Anion gap [Moles/Vol] 4 mmol/L 3 - 13 mmol/L [facility] AST [Catalytic activity/Vol] 29 U/L 15 - 46 U/L [facility] Bilirubin [Mass/Vol] 0.5 mg/dL 0.2 - 1 .3 mg/dL [facility] Calcium [Mass/Vol] 8.8 mg/dL 8.4 - 10. 4 mg/dL [facility] Chloride [Moles/Vol] 99 mmol/L 98 - 10 7 mmol/L [facility] CO2 [Moles/Vol] 29 mmol/L 22 - 30 mmol/L [facility] Creatinine [Mass/Vol] 0.72 mg/dL Male: 0.66-1.25 mg/dL; Female: 0.52-1.04 mg/dL [facility] GFR/1.73 sq M.predicted MDRD (S/P/Bld) [Vol rate/Area] - PINF [facility] Comment on above: Calculation based on the Chronic Kidney Disease Epidemiology Collaboration (CKD-EPI) equation refit without adjustment for race Glucose [Mass/Vol] 71 mg/dL 70 - 100 mg/dL [facility] Interpretation and review of laboratory results Abnormal [facility] Potassium [Moles/Vol] 4.8 mmol/L 3.5 - 5.1 mmol/L [facility] Protein [Mass/Vol] 7.1 g/dL 6.3 - 8.2 g/dL [facility] Urea nitrogen [Mass/Vol] 17 mg/dL Male: 9-20 mg/dL; Female: 7-17 mg/dL [facility] Determination of erythrocyte mean corpuscular volume (MCV)Ordered By: Jared Guzman on 08-17-2023 MCV (RBC) [Entitic vol] 86.6 fL 81-99 [facility] Glucose (Bld) [Mass/Vol]Orde red By: Asuncion Buchanan on 08-17-2023 Glucose [Mass/Vol] 29 mg/dL Critically low 70 - 10 0 mg/dL [facility] Interpretation and review of laboratory results Abnormal [facility] Hematocrit Auto (Bld) [Volum e fraction]Ordered By: Jared Guzman on 08-17-2023 Hematocrit (Bld) [Volume fraction] 40.2 % 37-47 [facility] Laboratory - Chemistry and C hemistry - challengeon 08-17-2023 Glucose [Mass/Vol] 154 mg/dL High 70 - 100 mg/dL [facility] Glucose [Mass/Vol] 154 mg/dL [facility] Glucose [Mass/Vol] 154 mg/dL High 70 - 100 mg/dL [facility] Glucose [Mass/Vol] mg/dL Low 70 - 100 mg/dL [facility] Comment on above: Caregiver Notified; Confirmation Drawn; Lipase [Catalytic activity/Vol] 62 U/L 23 - 300 U/L [facility] Lactate [Moles/Vol] 1.1 mmol/L 0.7 - 2. 0 mmol/L [facility] Laboratory - Chemistry and C hemistry - challengeOrdered By: Jared Guzman on 08-17-2023 ALP [Catalytic activity/Vol] 156 U/L 45-117 [facility] ALT [Catalytic activity/Vol] 56 U/L 13-56 [facility] CO2 [Moles/Vol] 29.0 mmol/L 21.0-32.0 [facility] Globulin (S) [Mass/Vol] 3.7 g/dL 2.2-4.2 [facility] Urea nitrogen/Creatinine [Mass ratio] 20.6 mg/mg 10-20 [facility] Laboratory - Hematology and Cell countsOrdered By: Jared Guzman on 08-17-2023 Erythrocyte distribution width (RBC) [Entitic vol] 44.6 fL 35.1-43.9 [facility] Erythrocyte distribution width (RBC) [Ratio] 14.0 % 11.6-14.6 [facility] MCH (RBC) [Entitic mass] 26.7 pg 27.0-32.0 [facility] Lipase [Catalytic activity/V ol]on 08-17-2023 Interpretation and review of laboratory results Normal [facility] MCHC Auto (RBC) [Mass/Vol]Or dered By: Jared Guzman on 08-17-2023 MCHC (RBC) [Mass/Vol] 30.8 g/dL 32-36 [facility] No Panel Informationon 08-17 Interpretation and review of laboratory results Abnormal [facility] Performed by: [facility], [address] [place] [address] CLIA ID: [id number] [facility] Interpretation and review of laboratory results Normal [facility] Interpretation and review of laboratory results Abnormal [facility] Performed by: [facility], [address] [facility] [address] CLIA ID: [id number] [facility] Interpretation and review of laboratory results Abnormal [facility] Performed by: [facility], [address] [facility] [address] CLIA ID: [id number] [facility] Interpretation and review of laboratory results Normal [facility] No Panel InformationOrdered By: Jared Guzman on 08-17-2023 Estimated GFR (MDRD) Amer 99 mL/min >60 [facility] Comment on above: GFR Calc Estimated GFR (MDRD) Non-Af Amer 81 mL/min >60 [facility] Comment on above: Non- GFR Calc Platelets bldOrdered By: Mike Guzman on 08-17-2023 Platelets (Bld) [#/Vol] 410 10*3/uL 150-450 [facility] Serum or plasma albumin mauricio urement (mass/volume)Ordered By: Jared Guzman on 08-17-2023 Albumin [Mass/Vol] 3.1 g/dL 3.2-5.0 [facility] Serum or plasma albumin/glob ulin mass ratioOrdered By: Jared Guzman on 08-17-2023 Albumin/Globulin [Mass ratio] 0.8 {ratio} 0.9-2.4 [facility] Serum or plasma calcium mauricio urement (mass/volume)Ordered By: Jared Guzman on 08-17-2023 Calcium [Mass/Vol] 9.1 mg/dL 8.5-10.1 [facility] Serum or plasma creatinine m easurement (mass/volume)Ordered By: Jared Guzman on 08-17-2023 Creatinine [Mass/Vol] 0.78 mg/dL 0.55-1.02 [facility] Comment on above: The validity of the calculated GFR & GFRAA in patients over 70 years has not been determined. Clinical correlation is essential. Serum or plasma urea nitroge n measurement (mass/volume)Ordered By: Jared Guzman on 08-17-2023 Urea nitrogen [Mass/Vol] 16 mg/dL 7-18 [facility] Thin prep Papanicolaou smear with manual screeningOrdered By: Jared Guzman on 08-17-2023 Thin prep Papanicolaou smear with manual screening 16 U/L 15-37 [facility] Thin prep Papanicolaou smear with manual screening 3 5-15 [facility] Urinalysis complete panel (U )Ordered By: Silvia Bone on 08-17-2023 Bacteria LM.HPF (Urine sed) [#/Area] Negative Negative /HPF [facility] Bilirubin Ql (U) Negative Negative mg/dL [facility] Clarity (U) Clear Clear [facility] Color (U) Yellow Lt. Yellow [facility] Epithelial cells.squamous LM.HPF (Urine sed) [#/Area] 0-[address] [facility] Glucose Ql (U) 300 mg/dL Abnormal Normal (<70) [facility] Hemoglobin Ql (U) 0.06 mg/dL Abnormal Negative [facility] Hyaline casts Auto (Urine sed) [#/Area] 0-2 Abnormal Negative /LPF [facility] Interpretation and review of laboratory results Abnormal [facility] Ketones (U) [Mass/Vol] Negative Negat bernard mg/dL [facility] Leukocyte esterase Test strip Ql (U) Negative Negative Kat/uL [facility] Mucus LM.HPF (Urine sed) [#/Area] Few Negative /LPF [facility] Nitrite Ql (U) Negative Negative [facility] pH (U) 6.0 [pH] 5.0 - 8.[address] [facility] Protein (U) [Mass/Vol] 300 mg/dL Abnormal Negative Macdonald mma [facility] RBC LM.HPF (Urine sed) [#/Area] 3-[address] [facility] Specific gravity (U) [Rel density] 1.040 High 1.005 - 1.[address] [facility] Urobilinogen (U) [Mass/Vol] 2 mg/dL Abnormal Normal (0-1) [facility] WBC LM.HPF (Urine sed) [#/Area] 3-5 [facility] Basic metabolic 1998 panelon 08-08-2023 Anion gap [Moles/Vol] 5 mmol/L 3 - 13 mmol/L [facility] Calcium [Mass/Vol] 8.9 mg/dL 8.4 - 10. 4 mg/dL [facility] Chloride [Moles/Vol] 97 mmol/L Low 98 - 10 7 mmol/L [facility] CO2 [Moles/Vol] 27 mmol/L 22 - 30 mmol/L [facility] Creatinine [Mass/Vol] 0.49 mg/dL Male: 0.66-1.25 mg/dL; Female: 0.52-1.04 mg/dL [facility] GFR/1.73 sq M.predicted MDRD (S/P/Bld) [Vol rate/Area] - PINF [facility] Comment on above: Calculation based on the Chronic Kidney Disease Epidemiology Collaboration (CKD-EPI) equation refit without adjustment for race Glucose [Mass/Vol] 253 mg/dL High 70 - 100 mg/dL [facility] Potassium [Moles/Vol] 5.0 mmol/L 3.5 - 5.1 mmol/L [facility] Sodium [Moles/Vol] 130 mmol/L Low 135 - 145 mmol/L [facility] Urea nitrogen [Mass/Vol] 13 mg/dL Male: 9-20 mg/dL; Female: 7-17 mg/dL [facility] Beta Hydroxybutyrateon 08-08 Beta hydroxybutyrate [Mass/Vol] 8.44 mg/dL High 0.20 - 2.81 mg/dL [facility] Interpretation and review of laboratory results Abnormal [facility] CBC panel Auto (Bld)Ordered By: Alex Kwok on 08-08-2023 Erythrocyte distribution width (RBC) [Ratio] 15.3 % High 11.5 - 14.5 % [facility] Hematocrit (Bld) [Volume fraction] 36.2 % Male: 40.0-52.0 %; Female: 35.0-47.0 % [facility] Hemoglobin (Bld) [Mass/Vol] 12.0 g/dL 11.7 - 18.0 g/dL [facility] Interpretation and review of laboratory results Abnormal [facility] MCH (RBC) [Entitic mass] 27.3 pg 26.0 - 34.[address] [facility] MCHC (RBC) [Mass/Vol] 33.3 % 32.0 - 36.0 % [facility] MCV (RBC) [Entitic vol] 81.9 fL 80.0 - 98.[address] [facility] Platelet mean volume (Bld) [Entitic vol] 7.6 fL 7.4 - 12.[address] [facility] Platelets (Bld) [#/Vol] 364 10*3/uL 140 - 440 10*3/uL [facility] RBC (Bld) [#/Vol] 4.42 10*6/uL Male: 4.40-5.90; Female: 3.80-5.[address] [facility] WBC (Bld) [#/Vol] 9.7 10*3/uL 3.6 - 10.7 10*3/uL [facility] CT Abdomen and Pelvis W [...] Electronically Signed Date/Time: 08/08/2023 8:43 AM [facility] RADIOLOGY SYSTEM Patient Name: WILL ALVARADO : [...] No acute fracture. No suspicious osseous lesions. [facility] Yvette Stringer MD - 08/08/2023 [...] Signed Date/Time: 08/08/2023 8:43 AM EDT [facility] Radiology Study observation (narrative) [facility] ECG 12 leadon 08-08-2023 Heart rate 111 /min bpm [facility] P [place] [address] [facility] [place] Interval [address] [facility] QRS [place] -[address] [facility] QRSD Interval [address] [facility] QT Interval [address] [facility] QTC Interval [address] [facility] T Wave [place] [address] [facility] Sinus tachycardia Left anterior fascicular block Left ventricular hypertrophy Borderline prolonged QT interval Compared to ECG 06/29/2023 06:27:39 Electronically Signed On 08-08-2023 7:02:41 EDT by Gayle Trevizo CV Gayle Mercedes MD - 08/08/2023 IMPRESSION: Sinus tachycardia Left anterior fascicular block Left ventricular hypertrophy Borderline prolonged QT interval Compared to ECG 06/29/2023 06:27:39 Electronically Signed On 08-08-2023 7:02:41 EDT by Gayle Trevizo [facility] Hepatic function 2000 panelo n 08-08-2023 Albumin [Mass/Vol] 4.0 g/dL 3.5 - 5.0 g/dL [facility] ALP [Catalytic activity/Vol] 156 U/L High 38 - 126 U/L [facility] ALT [Catalytic activity/Vol] 39 U/L Male: 0-49 U/L; Female: 0-34 U/L [facility] AST [Catalytic activity/Vol] 30 U/L 15 - 46 U/L [facility] Bilirubin [Mass/Vol] 0.5 mg/dL 0.2 - 1 .3 mg/dL [facility] Bilirubin.conjugated [Mass/Vol] 0.0 mg/dL 0.0 - 0.3 mg/dL [facility] Protein [Mass/Vol] 7.3 g/dL 6.3 - 8.2 g/dL [facility] Lipaseon 08-08-2023 Lipase [Catalytic activity/Vol] 34 U/L 23 - 300 U/L [facility] Lipase [Catalytic activity/V ol]on 08-08-2023 Interpretation and review of laboratory results Normal [facility] No Panel Informationon 08-[address] [facility] Interpretation and review of laboratory results Abnormal [facility] POCT glucose meteron 023 Glucose [Mass/Vol] 251 mg/dL High 70 - 100 mg/dL [facility] Interpretation and review of laboratory results Abnormal [facility] Performed by: [employer] [facility], [address] [place] [id number] CLIA ID: [id number] [facility] POCT venous blood gason Base excess Calc (BldV) [Moles/Vol] 0.0 mmol/L -3 - 3 mmol/L [facility] CO2 (BldV) [Partial pressure] 35.7 mm[Hg] Low [facility] CO2 [Moles/Vol] 24.9 mmol/L 24.0 - 28.0 mmol/L [facility] Comment on above: Performed by CLIA ID : [id number] [place], [place] ?Device: [id number] Foxpro Developer ID: [id number] [facility] HCO3 (Bld) [Moles/Vol] 23.8 mmol/L 23.0 - 27.0 mmol/L [facility] Interpretation and review of laboratory results Abnormal [facility] Oxygen (BldV) [Partial pressure] 40.4 mm[Hg] [facility] Oxygen saturation in Venous blood 77.5 % 60.0 - 80.0 % [facility] pH (BldV) 7.432 [pH] High 7.330 - 7.[address] [facility] Performed by: [employer] [facility], [address] [place] [id number] CLIA ID: [id number] [facility] Troponin I.cardiac [Mass/Vol ]on 08-08-2023 Interpretation and review of laboratory results Normal [facility] Patients with high levels of Biotin oral intake (ie >5 mg/day) may have falsely decreased Troponin levels. [facility] Troponin, with Serial Reflex on 08-08-2023 Troponin I.cardiac [Mass/Vol] ng/mL NINF - 0.034 ng/mL [facility] Urinalysis complete panel (U )Ordered By: Jackson Her on 08-08-2023 Bacteria LM.HPF (Urine sed) [#/Area] Few Abnormal Negative /HPF [facility] Bilirubin Ql (U) Negative Negative mg/dL [facility] Clarity (U) Clear Clear [facility] Color (U) Light Yellow Lt. Yellow [facility] Epithelial cells.squamous LM.HPF (Urine sed) [#/Area] 0-[address] [facility] Glucose Ql (U) 150 mg/dL Abnormal Normal (<70) [facility] Hemoglobin Ql (U) 0.06 mg/dL Abnormal Negative [facility] Interpretation and review of laboratory results Abnormal [facility] Ketones (U) [Mass/Vol] 10 mg/dL Abnormal Negative [facility] Leukocyte clumps LM.HPF (Urine sed) [#/Area] Rare Abnormal Negative /HPF [facility] Leukocyte esterase Test strip Ql (U) 250 Abnormal Negative Kat/uL [facility] Nitrite Ql (U) Negative Negative [facility] Non-Squamous Epithalial Cells, Urine 0-2 Abnormal Negative /HPF [facility] pH (U) 6.0 [pH] 5.0 - 8.[address] [facility] Protein (U) [Mass/Vol] 200 mg/dL Abnormal Negative [facility] RBC LM.HPF (Urine sed) [#/Area] 3-[address] [facility] Specific gravity (U) [Rel density] High 1.005 - 1.[address] [facility] Urobilinogen (U) [Mass/Vol] Normal Normal (0-1) mg/dL [facility] WBC LM.HPF (Urine sed) [#/Area] 6-10 Abnormal [facility] XR Chest Single viewon 08-08 Lungs clear with no acute cardiopulmonary disease process Report Dictated on Electronically Signed By: Chucho Stringer MD Electronically Signed Date/Time: 08/08/2023 7:16 AM [facility] [employer] RADIOLOGY SYSTEM Patient Name: WILL ALVARADO : [...] are normal. VASCULARITY: Normal BONES:Unremarkable [facility] Yvette Stringer MD - 08/08/2023 [facility] Name: [facility]ACINTO [facility] 1965 [id number] Exam Date/Time: 08/08/2023 07:22 Procedure: XR CHEST [...] Electronically Signed Date/Time: 08/08/2023 7:16 AM EDT [facility] Radiology Study observation (narrative) [facility] XR Chest Single viewOrdered By: Yvette Stringer on 08-08-2023 [facility] Work Phone: Basophil percentageOrdered B y: Jared Guzman on 08-04-2023 Chloride [Moles/Vol] 107 mmol/L 98-107 [facility] Glucose [Mass/Vol] 140 mg/dL 74-106 [facility] Comment on above: Fasting Glucose resu lt greater than or equal to 126 mg/dL suggests DIABETES MELLITUS per A.D.A. criteria. Potassium [Moles/Vol] 4.7 mmol/L 3.5-5.1 [facility] Sodium [Moles/Vol] 137 mmol/L 136-145 [facility] Laboratory - Chemistry and C hemistry - challengeOrdered By: Jared Guzman on 08-04-2023 CO2 [Moles/Vol] 27.0 mmol/L 21.0-32.0 [facility] Urea nitrogen/Creatinine [Mass ratio] 29.5 mg/mg 10-20 [facility] No Panel InformationOrdered By: Jared Guzman on 08-04-2023 Estimated GFR (MDRD) Amer 85 mL/min >60 [facility] Comment on above: GFR Calc Estimated GFR (MDRD) Non-Af Amer 71 mL/min >60 [facility] Comment on above: Non- GFR Calc Serum or plasma calcium mauricio urement (mass/volume)Ordered By: Jared Guzman on 08-04-2023 Calcium [Mass/Vol] 8.6 mg/dL 8.5-10.1 [facility] Serum or plasma creatinine m easurement (mass/volume)Ordered By: Jared Guzman on 08-04-2023 Creatinine [Mass/Vol] 0.88 mg/dL 0.55-1.02 [facility] Comment on above: The validity of the calculated GFR & GFRAA in patients over 70 years has not been determined. Clinical correlation is essential. Serum or plasma urea nitroge n measurement (mass/volume)Ordered By: Jared Guzman on 08-04-2023 Urea nitrogen [Mass/Vol] 26 mg/dL 7-18 [facility] Thin prep Papanicolaou smear with manual screeningOrdered By: Jared Guzman on 08-04-2023 Thin prep Papanicolaou smear with manual screening 3 5-15 [facility] Basophil percentageOrdered B y: Jared Guzman on 08-02-2023 Chloride [Moles/Vol] 102 mmol/L 98-107 [facility] Glucose [Mass/Vol] 393 mg/dL 74-106 [facility] Comment on above: Glucose result great er than or equal to 200 mg/dLsuggests DIABETES MELLITUS per A.D.A. criteria. Potassium [Moles/Vol] 6.1 mmol/L 3.5-5.1 [facility] Sodium [Moles/Vol] 131 mmol/L 136-145 [facility] WBC (Bld) [#/Vol] 6.7 10*3/uL 4.4-11.0 [facility] Blood erythrocytes count (nu mber/volume)Ordered By: Jared Guzman on 08-02-2023 RBC (Bld) [#/Vol] 3.97 10*6/uL 4.2-5.[address] [facility] Blood hemoglobin measurement (mass/volume)Ordered By: Jared Guzman on 08-02-2023 Hemoglobin (Bld) [Mass/Vol] 10.9 g/dL 12.0-15.0 [facility] Blood platelet mean volumeOr dered By: Jared Guzman on 08-02-2023 Platelet mean volume (Bld) [Entitic vol] 10.3 fL 6.2-12.0 [facility] Determination of erythrocyte mean corpuscular volume (MCV)Ordered By: Jared Guzman on 08-02-2023 MCV (RBC) [Entitic vol] 88.9 fL 81-99 [facility] Hematocrit Auto (Bld) [Volum e fraction]Ordered By: Jared Guzman on 08-02-2023 Hematocrit (Bld) [Volume fraction] 35.3 % 37-47 [facility] Laboratory - Chemistry and C hemistry - challengeOrdered By: Jared Guzman on 08-02-2023 CO2 [Moles/Vol] 22.0 mmol/L 21.0-32.0 [facility] Urea nitrogen/Creatinine [Mass ratio] 26.2 mg/mg 10-20 [facility] Laboratory - Hematology and Cell countsOrdered By: Jared Guzman on 08-02-2023 Erythrocyte distribution width (RBC) [Entitic vol] 48.3 fL 35.1-43.9 [facility] Erythrocyte distribution width (RBC) [Ratio] 14.7 % 11.6-14.6 [facility] MCH (RBC) [Entitic mass] 27.5 pg 27.0-32.0 [facility] MCHC Auto (RBC) [Mass/Vol]Or dered By: Jared Guzman on 08-02-2023 MCHC (RBC) [Mass/Vol] 30.9 g/dL 32-36 [facility] No Panel InformationOrdered By: Jared Guzman on 08-02-2023 Estimated GFR (MDRD) Amer 86 mL/min >60 [facility] Comment on above: GFR Calc Estimated GFR (MDRD) Non-Af Amer 71 mL/min >60 [facility] Comment on above: Non- GFR Calc Platelets bldOrdered By: Mike Guzman on 08-02-2023 Platelets (Bld) [#/Vol] 342 10*3/uL 150-450 [facility] Serum or plasma calcium mauricio urement (mass/volume)Ordered By: Jared Guzman on 08-02-2023 Calcium [Mass/Vol] 8.8 mg/dL 8.5-10.1 [facility] Serum or plasma creatinine m easurement (mass/volume)Ordered By: Jared Guzman on 08-02-2023 Creatinine [Mass/Vol] 0.88 mg/dL 0.55-1.02 [facility] Comment on above: The validity of the calculated GFR & GFRAA in patients over 70 years has not been determined. Clinical correlation is essential. Serum or plasma urea nitroge n measurement (mass/volume)Ordered By: Jared Guzman on 08-02-2023 Urea nitrogen [Mass/Vol] 23 mg/dL 7-18 [facility] Thin prep Papanicolaou smear with manual screeningOrdered By: Jared Guzman on 08-02-2023 Thin prep Papanicolaou smear with manual screening 7 5-15 [facility] Basophil percentageOrdered B y: Jared Guzman on 07-05-2023 Bilirubin [Mass/Vol] 0.30 mg/dL 0.20-1.00 [facility] Comment on above: For patients on eltr ombopag therapy, use of [employer] [place] TBIL is not recommended..Previous reported result: 0.30 mg/dLEdited by: PAULINE on 07/06/23:0945 AMENDED REPORT 07/06/2345 T BILI previously reported as: 0.30 mg/dL For patients on eltrombopag therapy, use of [employer] [place] TBIL is not recommended. Chloride [Moles/Vol] 108 mmol/L 98-107 [facility] Comment on above: .Previous reported r esult: 108 mmol/LEdited by: PAULINE on 07/06/23:0945 AMENDED REPORT 07/06/23944 CL previously reported as: 108 H mmol/L Glucose [Mass/Vol] 149 mg/dL 74-106 [facility] Comment on above: Fasting Glucose resu lt greater than or equal to 126 mg/dL suggests DIABETES MELLITUS per A.D.A. criteria..Previous reported result: 149 mg/dLEdited by: PAULINE on 07/06/23:0943 AMENDED REPORT 07/06/23942 GLU previously reported as: 149 H mg/dL Fasting Glucose result greater than or equal to 126 mg/dL suggests DIABETES MELLITUS per A.D.A. criteria. Potassium [Moles/Vol] 4.4 mmol/L 3.5-5.1 [facility] Comment on above: .Previous reported r esult: 4.4 mmol/LEdited by: PAULINE on 07/06/23:0945 AMENDED REPORT 07/06/23944 K previously reported as: 4.4 mmol/L Protein [Mass/Vol] 6.3 g/dL 6.4-8.2 [facility] Comment on above: .Previous reported r esult: 6.3 g/dLEdited by: PAULINE on 07/06/23:0944 AMENDED REPORT 07/06/23943 T PROT previously reported as: 6.3 L g/dL Sodium [Moles/Vol] 138 mmol/L 136-145 [facility] Comment on above: .Previous reported r esult: 138 mmol/LEdited by: PAULINE on 07/06/23:0945 AMENDED REPORT 07/06/2345 NA previously reported as: 138 mmol/L WBC (Bld) [#/Vol] 7.0 10*3/uL 4.4-11.0 [facility] Comment on above: .Previous reported r esult: 7.0 K/br8Cbslgz by: PAULINE on 07/06/23:0941 AMENDED REPORT 07/06/23940 WBC previously reported as: 7.0 K/mm3 Blood erythrocytes count (nu mber/volume)Ordered By: Jared Guzman on 07-05-2023 RBC (Bld) [#/Vol] 4.01 10*6/uL 4.2-5.[address] [facility] Comment on above: .Previous reported r esult: 4.01 M/ig8Aoiuve by: PAULINE on 07/06/23:0941 AMENDED REPORT 07/06/23940 RBC previously reported as: 4.01 L M/mm3 Blood hemoglobin measurement (mass/volume)Ordered By: Jared Guzman on 07-05-2023 Hemoglobin (Bld) [Mass/Vol] 10.9 g/dL 12.0-15.0 [facility] Comment on above: .Previous reported r esult: 10.9 g/dLEdited by: PAULINE on 07/06/23:0941 AMENDED REPORT 07/06/23940 HGB previously reported as: 10.9 L g/dL Blood platelet mean volumeOr dered By: Jared Guzman on 07-05-2023 Platelet mean volume (Bld) [Entitic vol] 10.1 fL 6.2-12.0 [facility] Comment on above: .Previous reported r esult: 10.1 flEdited by: PAULINE on 07/06/23:0942 AMENDED REPORT 07/06/23941 MPV previously reported as: 10.1 fl Determination of erythrocyte mean corpuscular volume (MCV)Ordered By: Jared Guzman on 07-05-2023 MCV (RBC) [Entitic vol] 89.3 fL 81-99 [facility] Comment on above: .Previous reported r esult: 89.3 fLEdited by: PAULINE on 07/06/23:0942 AMENDED REPORT 07/06/23941 MCV previously reported as: 89.3 fL Hematocrit Auto (Bld) [Volum e fraction]Ordered By: Jared Guzman on 07-05-2023 Hematocrit (Bld) [Volume fraction] 35.8 % 37-47 [facility] Comment on above: .Previous reported r esult: 35.8 %Edited by: PAULINE on 07/06/23:0942 AMENDED REPORT 07/06/23941 HCT previously reported as: 35.8 L % Laboratory - Chemistry and C hemistry - challengeOrdered By: Jared Guzman on 07-05-2023 ALP [Catalytic activity/Vol] 155 U/L 45-117 [facility] Comment on above: ..Previous reported result: 155 U/LEdited by: PAULINE on 07/06/23:0945 AMENDED REPORT 07/06/2345 ALK P previously reported as: 155 H U/L ALT [Catalytic activity/Vol] 43 U/L 13-56 [facility] Comment on above: .Previous reported r esult: 43 U/LEdited by: PAULINE on 07/06/23:0945 AMENDED REPORT 07/06/2345 ALT previously reported as: 43 U/L CO2 [Moles/Vol] 26.0 mmol/L 21.0-32.0 [facility] Comment on above: .Previous reported r esult: 26.0 mmol/LEdited by: PAULINE on 07/06/23:0946 AMENDED REPORT 07/06/2346 CO2 previously reported as: 26.0 mmol/L Globulin (S) [Mass/Vol] 3.6 g/dL 2.2-4.2 [facility] Comment on above: .Previous reported r esult: 3.6 g/dLEdited by: PAULINE on 07/06/23:0944 AMENDED REPORT 07/06/2344 GLOB previously reported as: 3.6 g/dL Urea nitrogen/Creatinine [Mass ratio] 23.7 mg/mg 10-20 [facility] Comment on above: .Previous reported r esult: 23.5 RATIOEdited by: PAULINE on 07/06/23:0943 AMENDED REPORT 07/06/2343 BUN/CRE previously reported as: 23.5 H RATIO Laboratory - Hematology and Cell countsOrdered By: Jared Guzman on 07-05-2023 Erythrocyte distribution width (RBC) [Entitic vol] 47.5 fL 35.1-43.9 [facility] Comment on above: .Previous reported r esult: 47.5 flEdited by: PAULINE on 07/06/23:0942 AMENDED REPORT 07/06/2342 RDW SD previously reported as: 47.5 H fl Erythrocyte distribution width (RBC) [Ratio] 14.5 % 11.6-14.6 [facility] Comment on above: .Previous reported r esult: 14.5 %Edited by: PAULINE on 07/06/23:0942 AMENDED REPORT 07/06/23941 RDW CV previously reported as: 14.5 % MCH (RBC) [Entitic mass] 27.2 pg 27.0-32.0 [facility] Comment on above: .Previous reported r esult: 27.2 pgEdited by: PAULINE on 07/06/23:0942 AMENDED REPORT 07/06/23941 MCH previously reported as: 27.2 pg MCHC Auto (RBC) [Mass/Vol]Or dered By: Jared Guzman on 07-05-2023 MCHC (RBC) [Mass/Vol] 30.4 g/dL 32-36 [facility] Comment on above: .Previous reported r esult: 30.4 g/dLEdited by: PAULINE on 07/06/23:0942 AMENDED REPORT 07/06/23941 MCHC previously reported as: 30.4 L g/dL No Panel InformationOrdered By: Jared Guzman on 07-05-2023 Estimated GFR (MDRD) Amer 137 mL/min >60 [facility] Comment on above: GFR Calc.Previous reported result: 135 mL/minEdited by: PAULINE on 07/06/23:0943 AMENDED REPORT 07/06/23942 EST GFR - AA previously reported as: 135 mL/min GFR Calc Estimated GFR (MDRD) Non-Af Amer 113 mL/min >60 [facility] Comment on above: Non- GFR Calc.Previous reported result: 112 mL/minEdited by: PAULINE on 07/06/23:0943 AMENDED REPORT 07/06/23942 EST GFR previously reported as: 112 mL/min Non- GFR Calc Platelets bldOrdered By: Mike Guzman on 07-05-2023 Platelets (Bld) [#/Vol] 352 10*3/uL 150-450 [facility] Comment on above: .Previous reported r esult: 352 K/wx9Khifgh by: PAULINE on 07/06/23:0942 AMENDED REPORT 07/06/23941 PLT previously reported as: 352 K/mm3 Serum or plasma albumin mauricio urement (mass/volume)Ordered By: Jared Guzman on 07-05-2023 Albumin [Mass/Vol] 2.7 g/dL 3.2-5.0 [facility] Comment on above: .Previous reported r esult: 2.7 g/dLEdited by: PAULINE on 07/06/23:0944 AMENDED REPORT 07/06/23943 ALB previously reported as: 2.7 L g/dL Serum or plasma albumin/glob ulin mass ratioOrdered By: Jared Guzman on 07-05-2023 Albumin/Globulin [Mass ratio] 0.8 {ratio} 0.9-2.4 [facility] Comment on above: .Previous reported r esult: 0.8 RATIOEdited by: PAULINE on 07/06/23:0944 AMENDED REPORT 07/06/23943 A/G previously reported as: 0.8 L RATIO Serum or plasma calcium mauricio urement (mass/volume)Ordered By: Jared Guzman on 07-05-2023 Calcium [Mass/Vol] 8.8 mg/dL 8.5-10.1 [facility] Comment on above: .Previous reported r esult: 8.8 mg/dLEdited by: PAULINE on 07/06/23:0944 AMENDED REPORT 07/06/23943 CA previously reported as: 8.8 mg/dL Serum or plasma creatinine m easurement (mass/volume)Ordered By: Jared Guzman on 07-05-2023 Creatinine [Mass/Vol] 0.76 mg/dL 0.55-1.02 [facility] Comment on above: The validity of the calculated GFR & GFRAA in patients over 70 years has not been determined. Clinical correlation is essential..Previous reported result: 0.76 mg/dLEdited by: PAULINE on 07/06/23:0943 AMENDED REPORT 08/29/23 0943 CREAT,SERUM previously reported as: 0.76 mg/dL The validity of the calculated GFR & GFRAA in patients over 70 years has not been determined. Clinical correlation is essential. Serum or plasma urea nitroge n measurement (mass/volume)Ordered By: Jared Guzman on 07-05-2023 Urea nitrogen [Mass/Vol] 18 mg/dL 7-18 [facility] Comment on above: .Previous reported r esult: 18 mg/dLEdited by: PAULINE on 07/06/23:0943 AMENDED REPORT 07/06/2343 BUN previously reported as: 18 mg/dL Thin prep Papanicolaou smear with manual screeningOrdered By: Jared Guzman on 07-05-2023 Thin prep Papanicolaou smear with manual screening 15 U/L 15- [facility] Comment on above: .Previous reported r esult: 15 U/LEdited by: PAULINE on 07/06/23:0945 AMENDED REPORT 07/06/2345 AST previously reported as: 15 U/L Thin prep Papanicolaou smear with manual screening 4 03-22 [facility] Comment on above: .Previous reported r esult: 4 Edited by: PAULINE on 07/06/23:0946 AMENDED REPORT 07/06/2346 GAP previously reported as: 4 L Laboratory - Chemistry and C hemistry - challengeon 07-01-2023 Glucose [Mass/Vol] 391 mg/dL High 70 - 100 mg/dL [facility] Glucose [Mass/Vol] 242 mg/dL High 70 - 100 mg/dL [facility] No Panel Informationon 07-01 Interpretation and review of laboratory results Abnormal [facility] Performed by: [facility], [address] [facility] [address] CLIA ID: [id number] [facility] Interpretation and review of laboratory results Abnormal [facility] Performed by: [facility], [address] [facility] [address] CLIA ID: [id number] [facility] Laboratory - Chemistry and C hemistry - challengeon 06-30-2023 Glucose [Mass/Vol] 101 mg/dL High 70 - 100 mg/dL [facility] Glucose [Mass/Vol] 131 mg/dL High 70 - 100 mg/dL [facility] Glucose [Mass/Vol] 251 mg/dL High 70 - 100 mg/dL [facility] Glucose [Mass/Vol] 317 mg/dL High 70 - 100 mg/dL [facility] No Panel Informationon 06-30 Interpretation and review of laboratory results Abnormal [facility] Performed by: [facility], [address] [facility] [address] CLIA ID: [id number] [facility] Interpretation and review of laboratory results Abnormal [facility] Performed by: [facility], [address] [facility] [address] CLIA ID: [id number] [facility] Art Benavidez M D - 06/30/2023 IMPRESSION: Sinus rhythm Abnormal R-wave progression, late transition Left ventricular hypertrophy Electronically Signed On 06-30-2023 12:43:24 EDT by Art Benavidez [facility] Interpretation and review of laboratory results Abnormal [facility] Performed by: [facility] [place] [facility], [address] [place] [address] CLIA ID: [id number] [facility] Interpretation and review of laboratory results Abnormal [facility] Performed by: [facility], [address] [place] [address] CLIA ID: [id number] [facility] No Panel InformationOrdered By: Art Benavidez on 06-30-2023 P [place] 37 degrees [employer] Work Phone: [place] Interval 166 ms [employer] Work Phone: QRS [place] -31 degrees [employer] Work Phone: QRSD Interval 112 ms [employer] Work Phone: QT Interval 413 ms [employer] Work Phone: QTC Interval 466 ms [employer] Work Phone: T Wave [place] 22 degrees [employer] Work Phone: [employer] Work Phone: Vital signsOrdered By: Laron Benavidez on 06-30-2023 Heart rate 76 /min bpm [facility] Work Phone: CBC panel Auto (Bld)Ordered By: Alex Kwok on 06-29-2023 Erythrocyte distribution width (RBC) [Ratio] 15.3 % High 11.5 - 14.5 % [facility] Hematocrit (Bld) [Volume fraction] 32.6 % [facility] Hemoglobin (Bld) [Mass/Vol] 10.8 g/dL Low 11.7 - 18.0 g/dL [facility] Interpretation and review of laboratory results Abnormal [facility] MCH (RBC) [Entitic mass] 27.5 pg 26.0 - 34.[address] [facility] MCHC (RBC) [Mass/Vol] 33.2 % 32.0 - 36.0 % [facility] MCV (RBC) [Entitic vol] 82.9 fL 80.0 - 98.[address] [facility] Platelet mean volume (Bld) [Entitic vol] 7.7 fL 7.4 - 12.[address] [facility] Platelets (Bld) [#/Vol] 361 10*3/uL 140 - 440 10*3/uL [facility] RBC (Bld) [#/Vol] 3.94 10*6/uL [facility] WBC (Bld) [#/Vol] 9.2 10*3/uL 3.6 - 10.7 10*3/uL [facility] Comprehensive metabolic 1998 panelon 06-29-2023 Albumin [Mass/Vol] 3.4 g/dL Low 3.5 - 5.0 g/dL [facility] ALP [Catalytic activity/Vol] 121 U/L 38 - 126 U/L [facility] ALT [Catalytic activity/Vol] 41 U/L [facility] Anion gap [Moles/Vol] 6 mmol/L 3 - 13 mmol/L [facility] AST [Catalytic activity/Vol] 32 U/L 15 - 46 U/L [facility] Bilirubin [Mass/Vol] 0.3 mg/dL 0.2 - 1 .3 mg/dL [facility] Calcium [Mass/Vol] 8.3 mg/dL Low 8.4 - 10. 4 mg/dL [facility] Chloride [Moles/Vol] 103 mmol/L 98 - 10 7 mmol/L [facility] CO2 [Moles/Vol] 27 mmol/L 22 - 30 mmol/L [facility] Creatinine [Mass/Vol] 0.79 mg/dL [facility] GFR/1.73 sq M.predicted MDRD (S/P/Bld) [Vol rate/Area] 87.9 mL/min/{1.73_m2} - PINF [facility] Comment on above: Calculation based on the Chronic Kidney Disease Epidemiology Collaboration (CKD-EPI) equation refit without adjustment for race Glucose [Mass/Vol] 193 mg/dL High 70 - 100 mg/dL [facility] Interpretation and review of laboratory results Abnormal [facility] Potassium [Moles/Vol] 5.0 mmol/L 3.5 - 5.1 mmol/L [facility] Protein [Mass/Vol] 6.3 g/dL 6.3 - 8.2 g/dL [facility] Sodium [Moles/Vol] 136 mmol/L 135 - 145 mmol/L [facility] Urea nitrogen [Mass/Vol] 23 mg/dL [facility] Laboratory - Chemistry and C hemistry - challengeon 06-29-2023 Glucose [Mass/Vol] 180 mg/dL High 70 - 100 mg/dL [facility] Glucose [Mass/Vol] 338 mg/dL High 70 - 100 mg/dL [facility] Glucose [Mass/Vol] 244 mg/dL High 70 - 100 mg/dL [facility] Glucose [Mass/Vol] 234 mg/dL High 70 - 100 mg/dL [facility] No Panel Informationon 06-29 Interpretation and review of laboratory results Abnormal [facility] Performed by: [facility], [address] [place] [id number] CLIA ID: [id number] [facility] Interpretation and review of laboratory results Abnormal [facility] Performed by: [facility], [address] [place] [address] CLIA ID: [id number] [facility] Interpretation and review of laboratory results Abnormal [facility] Performed by: [facility], [address] [place] [address] CLIA ID: [id number] [facility] Interpretation and review of laboratory results Abnormal [facility] Performed by: [facility], [address] [place] [address] CLIA ID: [id number] [facility] Basic metabolic 1998 panelon 06-28-2023 Anion gap [Moles/Vol] 7 mmol/L 3 - 13 mmol/L [facility] Calcium [Mass/Vol] 9.1 mg/dL 8.4 - 10. 4 mg/dL [facility] Chloride [Moles/Vol] 102 mmol/L 98 - 10 7 mmol/L [facility] CO2 [Moles/Vol] 24 mmol/L 22 - 30 mmol/L [facility] Creatinine [Mass/Vol] 0.64 mg/dL [facility] GFR/1.73 sq M.predicted MDRD (S/P/Bld) [Vol rate/Area] - PINF [facility] Comment on above: Calculation based on the Chronic Kidney Disease Epidemiology Collaboration (CKD-EPI) equation refit without adjustment for race Glucose [Mass/Vol] 194 mg/dL High 70 - 100 mg/dL [facility] Interpretation and review of laboratory results Abnormal [facility] Potassium [Moles/Vol] 5.0 mmol/L 3.5 - 5.1 mmol/L [facility] Sodium [Moles/Vol] 133 mmol/L Low 135 - 145 mmol/L [facility] Urea nitrogen [Mass/Vol] 20 mg/dL [facility] CBC W Auto Differential pane l (Bld)Ordered By: Joel Houston on 06-28-2023 Basophils (Bld) [#/Vol] 0.1 10*3/uL 0.0 - 0.2 10*3/uL [facility] Basophils/100 WBC (Bld) 0.6 % 0.0 - 2.0 % [facility] Eosinophils (Bld) [#/Vol] 0.0 10*3/uL 0.0 - 0.5 10*3/uL [facility] Eosinophils/100 WBC (Bld) 0.1 % Low 1.0 - 6.0 % [facility] Erythrocyte distribution width (RBC) [Ratio] 15.4 % High 11.5 - 14.5 % [facility] Hematocrit (Bld) [Volume fraction] 35.1 % [facility] Hemoglobin (Bld) [Mass/Vol] 11.6 g/dL Low 11.7 - 18.0 g/dL [facility] Interpretation and review of laboratory results Abnormal [facility] Lymphocytes (Bld) [#/Vol] 0.6 10*3/uL Low 1.0 - 4.3 10*3/uL [facility] Lymphocytes/100 WBC (Bld) 5.4 % Low 20.0 - 40.0 % [facility] MCH (RBC) [Entitic mass] 27.3 pg 26.0 - 34.0 pg [facility] MCHC (RBC) [Mass/Vol] 33.2 % 32.0 - 36.0 % [facility] MCV (RBC) [Entitic vol] 82.3 fL 80.0 - 98.0 fL [facility] Monocytes (Bld) [#/Vol] 0.4 10*3/uL 0.0 - 0.8 10*3/uL [facility] Monocytes/100 WBC (Bld) 3.6 % 2.0 - 10.0 % [facility] Neutrophils (Bld) [#/Vol] 10.6 10*3/uL High 1.8 - 7.0 10*3/uL [facility] Neutrophils/100 WBC (Bld) 90.3 % High 40.0 - 80.0 % [facility] Nucleated RBC/100 WBC (Bld) [Ratio] 0.0 % [facility] Platelet mean volume (Bld) [Entitic vol] 7.9 fL 7.4 - 12.4 fL [facility] Platelets (Bld) [#/Vol] 384 10*3/uL 140 - 440 10*3/uL [facility] RBC (Bld) [#/Vol] 4.26 10*6/uL [facility] WBC (Bld) [#/Vol] 11.8 10*3/uL High 3.6 - 10.7 10*3/uL [facility] CTA Chest vessels WO and [...] Bones: Multilevel flowing osteophytes consistent with DISH. [facility] Yvette Stringer MD - 06/28/2023 [facility] 1965 [id number] Exam Date/Time: 06/28/2023 03:49 Procedure: CT CHEST [...] Electronically Signed Date/Time: 06/28/2023 4:37 AM EDT [facility] Radiology Study observation (narrative) [facility] Laboratory - Chemistry and C hemistry - challengeon 06-28-2023 Glucose [Mass/Vol] 223 mg/dL High 70 - 100 mg/dL [facility] Glucose [Mass/Vol] 270 mg/dL High 70 - 100 mg/dL [facility] Troponin I.cardiac [Mass/Vol] ng/mL 0.000 - 0.034 ng/mL [facility] Glucose [Mass/Vol] 253 mg/dL High 70 - 100 mg/dL [facility] Glucose [Mass/Vol] 247 mg/dL High 70 - 100 mg/dL [facility] Troponin I.cardiac [Mass/Vol] ng/mL 0.000 - 0.034 ng/mL [facility] Natriuretic peptide B [Mass/ Vol]on 06-28-2023 Interpretation and review of laboratory results Normal [facility] Natriuretic peptide B (Bld) [Mass/Vol] 150 pg/mL <20 - 300 [facility] No Panel Informationon 06-28 Interpretation and review of laboratory results Abnormal [facility] Performed by: [facility], [address] [place] [address] CLIA ID: [id number] [facility] Interpretation and review of laboratory results Abnormal [facility] Performed by: [facility], [address] [place] [address] CLIA ID: [id number] [facility] Interpretation and review of laboratory results Abnormal [facility] Performed by: [facility], [address] [place] [address] CLIA ID: [id number] [facility] Interpretation and review of laboratory results Abnormal [facility] Performed by: [facility], [address] [place] [address] CLIA ID: [id number] [facility] P [place] [address] [facility] [place] Interval [address] [facility] QRS [place] -[address] [facility] QRSD Interval [address] [facility] QT Interval [address] [facility] QTC Interval [address] [facility] T Wave [place] [address] [facility] Sinus tachycardia Nonspecific IVCD with LAD Left ventricular hypertrophy Minimal ST elevation, anterolateral leads Electronically Signed On 06-28-2023 5:20:13 EDT by Rosaura Rosa, DO - 06/28/2023 IMPRESSION: Sinus tachycardia Nonspecific IVCD with LAD Left ventricular hypertrophy Minimal ST elevation, anterolateral leads Electronically Signed On 06-28-2023 5:20:13 EDT by Rosaura Mustafa [facility] Troponin I.cardiac [Mass/Vol ]on 06-28-2023 Interpretation and review of laboratory results Normal [facility] Patients with high levels of Biotin oral intake (ie >5 mg/day) may have falsely decreased Troponin levels. [facility] Interpretation and review of laboratory results Normal [facility] Patients with high levels of Biotin oral intake (ie >5 mg/day) may have falsely decreased Troponin levels. [facility] Vital signson 06-28-2023 Heart rate 105 /min bpm [facility] XR Chest Single viewon 06-28 Low lung volumes. No acute infiltrate or effusion. Report Dictated on Electronically Signed By: Chucho Stringer MD Electronically Signed Date/Time: 06/28/2023 3:08 AM T [facility] Patient Name: WILL ALVARADO : [...] VASCULARITY: Normal BONES:Unremarkable SUPPORT LINES: None OTHER: [facility] Yvette Stringer MD - 06/28/2023 [facility] Name: [facility]TO : 1965 [id number] Exam Date/Time: 06/28/2023 03:08 Procedure: XR CHEST [...] Electronically Signed Date/Time: 06/28/2023 3:08 AM EDT [facility] Radiology Study observation (narrative) [facility] XR Chest Single viewOrdered By: Yvette Stringer on 06-28-2023 [facility] Work Phone: Basophil percentageOrdered B y: Jared Guzman on 05-31-2023 Chloride [Moles/Vol] 106 mmol/L 98-107 [facility] Glucose [Mass/Vol] 227 mg/dL 74-106 [facility] Comment on above: Glucose result great er than or equal to 200 mg/dLsuggests DIABETES MELLITUS per A.D.A. criteria. Potassium [Moles/Vol] 4.8 mmol/L 3.5-5.1 [facility] Sodium [Moles/Vol] 137 mmol/L 136-145 [facility] WBC (Bld) [#/Vol] 7.7 10*3/uL 4.4-11.0 [facility] Blood erythrocytes count (nu mber/volume)Ordered By: Jared Guzman on 05-31-2023 RBC (Bld) [#/Vol] 3.90 10*6/uL 4.6-6.[address] [facility] Blood hemoglobin measurement (mass/volume)Ordered By: Jared Guzman on 05-31-2023 Hemoglobin (Bld) [Mass/Vol] 10.4 g/dL 13.0-16.5 [facility] Blood platelet mean volumeOr dered By: Jared Guzman on 05-31-2023 Platelet mean volume (Bld) [Entitic vol] 9.9 fL 6.2-12.0 [facility] Determination of erythrocyte mean corpuscular volume (MCV)Ordered By: Jared Guzman on 05-31-2023 MCV (RBC) [Entitic vol] 89.7 fL 80-94 [facility] Hematocrit Auto (Bld) [Volum e fraction]Ordered By: Jared Guzman on 05-31-2023 Hematocrit (Bld) [Volume fraction] 35.0 % 40-54 [facility] Laboratory - Chemistry and C hemistry - challengeOrdered By: Jared Guzman on 05-31-2023 CO2 [Moles/Vol] 26.0 mmol/L 21.0-32.0 [facility] Urea nitrogen/Creatinine [Mass ratio] 31.0 mg/mg 10-20 [facility] - Hematology and Cell countsOrdered By: Jared Guzman on 05-31-2023 Erythrocyte distribution width (RBC) [Entitic vol] 46.2 fL 35.1-43.9 [facility] Erythrocyte distribution width (RBC) [Ratio] 14.3 % 11.6-14.6 [facility] MCH (RBC) [Entitic mass] 26.7 pg 27.0-32.0 [facility] MCHC Auto (RBC) [Mass/Vol]Or dered By: Jared Guzman on 05-31-2023 MCHC (RBC) [Mass/Vol] 29.7 g/dL 32-36 [facility] No Panel InformationOrdered By: Jared Guzman on 05-31-2023 Estimated GFR (MDRD) Amer 133 mL/min >60 [facility] Comment on above: GFR Calc Estimated GFR (MDRD) Non-Af Amer 110 mL/min >60 [facility] Comment on above: Non- GFR Calc Platelets bldOrdered By: Mike Guzman on 05-31-2023 Platelets (Bld) [#/Vol] 400 10*3/uL 150-450 [facility] Serum or plasma calcium mauricio urement (mass/volume)Ordered By: Jared Guzman on 05-31-2023 Calcium [Mass/Vol] 8.9 mg/dL 8.5-10.1 [facility] Serum or plasma creatinine m easurement (mass/volume)Ordered By: Jared Guzman on 05-31-2023 Creatinine [Mass/Vol] 0.78 mg/dL 0.70-1.30 [facility] Comment on above: The validity of the calculated GFR & GFRAA in patients over 70 years has not been determined. Clinical correlation is essential. Serum or plasma urea nitroge n measurement (mass/volume)Ordered By: Jared Guzman on 05-31-2023 Urea nitrogen [Mass/Vol] 24 mg/dL 7-18 [facility] Thin prep Papanicolaou smear with manual screeningOrdered By: Jared Guzman on 05-31-2023 Thin prep Papanicolaou smear with manual screening 5 5-15 [facility] Whole blood hemoglobin A1c/t otal hemoglobin ratio (mass fraction)Ordered By: Jared Guzman on 05-31-2023 HbA1c (Bld) [Mass fraction] 8.2 % 3.8-5.6 [facility] Comment on above: Normal < 5.7 % Predi abetic 5.7 - 6.4 % Diabetic >or= 6.5 % Please note range changes. Basophil percentageOrdered B y: Jared Guzman on 04-19-2023 Bilirubin [Mass/Vol] 0.20 mg/dL 0.20-1.00 [facility] Comment on above: For patients on eltr ombopag therapy, use of Dimension [place] TBIL is not recommended. Chloride [Moles/Vol] 104 mmol/L 98-107 [facility] Cholesterol [Mass/Vol] 136 mg/dL <200 [facility] Comment on above: <200 mg/dL Desirable 200-240 mg/dL Borderline >240 mg/dL High Risk Glucose [Mass/Vol] 252 mg/dL 74-106 [facility] Comment on above: Glucose result great er than or equal to 200 mg/dLsuggests DIABETES MELLITUS per A.D.A. criteria. Potassium [Moles/Vol] 4.9 mmol/L 3.5-5.1 [facility] Protein [Mass/Vol] 6.5 g/dL 6.4-8.2 [facility] Sodium [Moles/Vol] 136 mmol/L 136-145 [facility] Triglyceride [Mass/Vol] 173 mg/dL <199 [facility] Comment on above: The drugs N-Acetylcy steine and Metamizole may falsely depress this assay.Serum Triglycerides Reference Interval Normal <150 mg/dL Borderline high 150 - 199 mg/dL High 200 - 499 mg/dL Very High > or = 500 mg/dL WBC (Bld) [#/Vol] 7.4 10*3/uL 4.4-11.0 [facility] Blood erythrocytes count (nu mber/volume)Ordered By: Jared Guzman on 04-19-2023 RBC (Bld) [#/Vol] 4.12 10*6/uL 4.6-6.[address] [facility] Blood hemoglobin measurement (mass/volume)Ordered By: Jared Guzman on 04-19-2023 Hemoglobin (Bld) [Mass/Vol] 11.2 g/dL 13.0-16.5 [facility] Blood platelet mean volumeOr dered By: Jared Guzman on 04-19-2023 Platelet mean volume (Bld) [Entitic vol] 10.2 fL 6.2-12.0 [facility] Determination of erythrocyte mean corpuscular volume (MCV)Ordered By: Jared Guzman on 04-19-2023 MCV (RBC) [Entitic vol] 90.8 fL 80-94 [facility] Hematocrit Auto (Bld) [Volum e fraction]Ordered By: Jared Guzman on 04-19-2023 Hematocrit (Bld) [Volume fraction] 37.4 % 40-54 [facility] Laboratory - Chemistry and C hemistry - challengeOrdered By: Jared Guzman on 04-19-2023 ALP [Catalytic activity/Vol] 176 U/L 45-117 [facility] ALT [Catalytic activity/Vol] 39 U/L 16-61 [facility] CO2 [Moles/Vol] 26.0 mmol/L 21.0-32.0 [facility] Globulin (S) [Mass/Vol] 3.5 g/dL 2.2-4.2 [facility] Urea nitrogen/Creatinine [Mass ratio] 23.7 mg/mg 10-20 [facility] Laboratory - Hematology and Cell countsOrdered By: Jared Guzman on 04-19-2023 Erythrocyte distribution width (RBC) [Entitic vol] 46.9 fL 35.1-43.9 [facility] Erythrocyte distribution width (RBC) [Ratio] 14.1 % 11.6-14.6 [facility] MCH (RBC) [Entitic mass] 27.2 pg 27.0-32.0 [facility] MCHC Auto (RBC) [Mass/Vol]Or dered By: Jared Guzman on 04-19-2023 MCHC (RBC) [Mass/Vol] 29.9 g/dL 32-36 [facility] No Panel InformationOrdered By: Jared Guzman on 04-19-2023 Estimated GFR (MDRD) Amer 128 mL/min >60 [facility] Comment on above: GFR Calc Estimated GFR (MDRD) Non-Af Amer 106 mL/min >60 [facility] Comment on above: Non- GFR Calc Platelets bldOrdered By: Mike Guzman on 04-19-2023 Platelets (Bld) [#/Vol] 361 10*3/uL 150-450 [facility] Serum or plasma albumin mauricio urement (mass/volume)Ordered By: Jared Guzman on 04-19-2023 Albumin [Mass/Vol] 3.0 g/dL 3.2-5.0 [facility] Serum or plasma albumin/glob ulin mass ratioOrdered By: Jared Guzman on 04-19-2023 Albumin/Globulin [Mass ratio] 0.9 {ratio} 0.9-2.4 [facility] Serum or plasma calcium mauricio urement (mass/volume)Ordered By: Jared Guzman on 04-19-2023 Calcium [Mass/Vol] 8.8 mg/dL 8.5-10.1 [facility] Serum or plasma cholesterol in HDL measurement (mass/volume)Ordered By: Jared Guzman on 04-19-2023 Cholesterol in HDL [Mass/Vol] 33 mg/dL >40 [facility] Comment on above: The drugs N-Acetylcy steine and Metamizole may falsely depress this assay. Reference Range HDL <40 mg/dL Low HDL Cholesterol HDL >or= 60 mg/dL High HDL Cholesterol Serum or plasma cholesterol in VLDL measurement (mass/volume)Ordered By: Jared Guzman on 04-19-2023 Cholesterol in VLDL [Mass/Vol] 35 mg/dL 5-40 [facility] Serum or plasma creatinine m easurement (mass/volume)Ordered By: Jared Guzman on 04-19-2023 Creatinine [Mass/Vol] 0.80 mg/dL 0.70-1.30 [facility] Comment on above: The validity of the calculated GFR & GFRAA in patients over 70 years has not been determined. Clinical correlation is essential. Serum or plasma low density lipoprotein (LDL) cholesterol measurement (mass/volume)Ordered By: Jared Guzman on 04-19-2023 Cholesterol in LDL [Mass/Vol] 68 mg/dL 0-130 [facility] Serum or plasma urea nitroge n measurement (mass/volume)Ordered By: Jared Guzman on 04-19-2023 Urea nitrogen [Mass/Vol] 19 mg/dL 7-18 [facility] Thin prep Papanicolaou smear with manual screeningOrdered By: Jared Guzman on 04-19-2023 Thin prep Papanicolaou smear with manual screening 21 U/L 15-37 [facility] Thin prep Papanicolaou smear with manual screening 6 5-15 [facility] Whole blood hemoglobin A1c/t otal hemoglobin ratio (mass fraction)Ordered By: Jared Guzman on 04-19-2023 HbA1c (Bld) [Mass fraction] 9.0 % 3.8-5.6 [facility] Comment on above: Normal < 5.7 % Predi abetic 5.7 - 6.4 % Diabetic >or= 6.5 % Please note range changes. Whole blood hemoglobin A1c/t otal hemoglobin ratio (mass fraction)Ordered By: Jared Guzman on 03-30-2023 HbA1c (Bld) [Mass fraction] 9.4 % 3.8-5.6 [facility] Comment on above: Normal < 5.7 % Predi abetic 5.7 - 6.4 % Diabetic >or= 6.5 % Please note range changes. Basophil percentageOrdered B y: Jared Guzman on 03-15-2023 Cholesterol [Mass/Vol] 142 mg/dL <200 [facility] Comment on above: <200 mg/dL Desirable 200-240 mg/dL Borderline >240 mg/dL High Risk Triglyceride [Mass/Vol] 149 mg/dL <199 [facility] Comment on above: The drugs N-Acetylcy steine and Metamizole may falsely depress this assay.Serum Triglycerides Reference Interval Normal <150 mg/dL Borderline high 150 - 199 mg/dL High 200 - 499 mg/dL Very High > or = 500 mg/dL Serum or plasma cholesterol in HDL measurement (mass/volume)Ordered By: Jared Guzman on 03-15-2023 Cholesterol in HDL [Mass/Vol] 32 mg/dL >40 [facility] Comment on above: The drugs N-Acetylcy steine and Metamizole may falsely depress this assay. Reference Range HDL <40 mg/dL Low HDL Cholesterol HDL >or= 60 mg/dL High HDL Cholesterol Serum or plasma cholesterol in VLDL measurement (mass/volume)Ordered By: Jared Guzman on 03-15-2023 Cholesterol in VLDL [Mass/Vol] 30 mg/dL 5-40 [facility] Serum or plasma low density lipoprotein (LDL) cholesterol measurement (mass/volume)Ordered By: Jared Guzman on 03-15-2023 Cholesterol in LDL [Mass/Vol] 80 mg/dL 0-130 [facility] Beta Hydroxybutyrateon 03-08 Beta hydroxybutyrate [Mass/Vol] 1.94 mg/dL 0.20 - 2.81 mg/dL [facility] Interpretation and review of laboratory results Normal [facility] CBC W Auto Differential pane l (Bld)Ordered By: Hina Jaramillo on 03-08-2023 Basophils (Bld) [#/Vol] 0.1 10*3/uL 0.0 - 0.2 10*3/uL [facility] Basophils/100 WBC (Bld) 0.5 % 0.0 - 2.0 % [facility] Eosinophils (Bld) [#/Vol] 0.1 10*3/uL 0.0 - 0.5 10*3/uL [facility] Eosinophils/100 WBC (Bld) 0.4 % Low 1.0 - 6.0 % [facility] Erythrocyte distribution width (RBC) [Ratio] 14.6 % High 11.5 - 14.5 % [facility] Hematocrit (Bld) [Volume fraction] 37.8 % [facility] Hemoglobin (Bld) [Mass/Vol] 12.6 g/dL [facility] Interpretation and review of laboratory results Abnormal [facility] Lymphocytes (Bld) [#/Vol] 1.1 10*3/uL 1.0 - 4.3 10*3/uL [facility] Lymphocytes/100 WBC (Bld) 8.4 % Low 20.0 - 40.0 % [facility] MCH (RBC) [Entitic mass] 27.6 pg 26.0 - 34.[address] [facility] MCHC (RBC) [Mass/Vol] 33.3 % 32.0 - 36.0 % [facility] MCV (RBC) [Entitic vol] 82.8 fL 80.0 - 98.0 fL [facility] Monocytes (Bld) [#/Vol] 0.7 10*3/uL 0.0 - 0.8 10*3/uL [facility] Monocytes/100 WBC (Bld) 5.5 % 2.0 - 10.0 % [facility] Neutrophils (Bld) [#/Vol] 10.9 10*3/uL High 1.8 - 7.0 10*3/uL [facility] Neutrophils/100 WBC (Bld) 85.2 % High 40.0 - 80.0 % [facility] Nucleated RBC/100 WBC (Bld) [Ratio] 0.1 % [facility] Platelet mean volume (Bld) [Entitic vol] 8.2 fL 7.4 - 12.[address] [facility] Platelets (Bld) [#/Vol] 362 10*3/uL 140 - 440 10*3/uL [facility] RBC (Bld) [#/Vol] 4.56 10*6/uL [facility] WBC (Bld) [#/Vol] 12.8 10*3/uL High 3.6 - 10.7 10*3/uL [facility] CT Abdomen WO contraston 1. No acute abdominal or pelvic process to explain symptoms. Report Dictated on Electronically Signed By: Abner Palacio Electronically Signed Date/Time: 03/08/2023 2:14 PM EDT [facility] Patient Name: WILL ALVARADO : [...] evident. Osseous structures: Mild lumbar degenerative spondylosis. [facility] Abner Palacio, DO - 03/08/2023 Patient Name: WILL JACINTO [...] Electronically Signed Date/Time: 03/08/2023 2:14 PM EDT [facility] Study observation (narrative) [facility] Abdomen WO contrastOrdere d By: Abner Palacio on 03-08-2023 [facility] Work Phone: Comprehensive metabolic 1998 panelon 03-08-2023 Albumin [Mass/Vol] 4.1 g/dL 3.5 - 5.0 g/dL [facility] ALP [Catalytic activity/Vol] 158 U/L High 38 - 126 U/L [facility] ALT [Catalytic activity/Vol] 41 U/L [facility] Anion gap [Moles/Vol] 8 mmol/L 3 - 13 mmol/L [facility] AST [Catalytic activity/Vol] 29 U/L 15 - 46 U/L [facility] Bilirubin [Mass/Vol] 0.5 mg/dL 0.2 - 1 .3 mg/dL [facility] Calcium [Mass/Vol] 8.5 mg/dL 8.4 - 10. 4 mg/dL [facility] Chloride [Moles/Vol] 102 mmol/L 98 - 10 7 mmol/L [facility] CO2 [Moles/Vol] 23 mmol/L 22 - 30 mmol/L [facility] Creatinine [Mass/Vol] 0.56 mg/dL [facility] GFR/1.73 sq M.predicted MDRD (S/P/Bld) [Vol rate/Area] - PINF [facility] Comment on above: Calculation based on the Chronic Kidney Disease Epidemiology Collaboration (CKD-EPI) equation refit without adjustment for race Glucose [Mass/Vol] 197 mg/dL High 70 - 100 mg/dL [facility] Interpretation and review of laboratory results Abnormal [facility] Potassium [Moles/Vol] 4.7 mmol/L 3.5 - 5.1 mmol/L [facility] Protein [Mass/Vol] 7.4 g/dL 6.3 - 8.2 g/dL [facility] Sodium [Moles/Vol] 133 mmol/L Low 135 - 145 mmol/L [facility] Urea nitrogen [Mass/Vol] 20 mg/dL [facility] Lipaseon 03-08-2023 Lipase [Catalytic activity/Vol] 45 U/L 23 - 300 U/L [facility] Lipase [Catalytic activity/V ol]on 03-08-2023 Interpretation and review of laboratory results Normal [facility] No Panel Informationon 03-[address] [facility] POCT glucose meteron 023 Glucose [Mass/Vol] 167 mg/dL High 70 - 100 mg/dL [facility] Interpretation and review of laboratory results Abnormal [facility] Performed by: [facility], [address] [place] [id number] CLIA ID: [id number] [facility] Basophil percentageOrdered B y: Raj Caicedo on 01-13-2023 Cholesterol [Mass/Vol] 156 mg/dL <200 [facility] Comment on above: <200 mg/dL Desirable 200-240 mg/dL Borderline >240 mg/dL High Risk Triglyceride [Mass/Vol] 235 mg/dL <199 [facility] Comment on above: The drugs N-Acetylcy steine and Metamizole may falsely depress this assay.Serum Triglycerides Reference Interval Normal <150 mg/dL Borderline high 150 - 199 mg/dL High 200 - 499 mg/dL Very High > or = 500 mg/dL Serum or plasma cholesterol in HDL measurement (mass/volume)Ordered By: Raj Caicedo on 01-13-2023 Cholesterol in HDL [Mass/Vol] 37 mg/dL >40 [facility] Comment on above: The drugs N-Acetylcy steine and Metamizole may falsely depress this assay. Reference Range HDL <40 mg/dL Low HDL Cholesterol HDL >or= 60 mg/dL High HDL Cholesterol Serum or plasma cholesterol in VLDL measurement (mass/volume)Ordered By: Raj Caicedo on 01-13-2023 Cholesterol in VLDL [Mass/Vol] 47 mg/dL 5-40 [facility] Serum or plasma low density lipoprotein (LDL) cholesterol measurement (mass/volume)Ordered By: Raj Caicedo on 01-13-2023 Cholesterol in LDL [Mass/Vol] 72 mg/dL 0-130 [facility] Whole blood hemoglobin A1c/t otal hemoglobin ratio (mass fraction)Ordered By: Jared Guzman on 12-02-2022 HbA1c (Bld) [Mass fraction] 9.5 % 3.8-5.6 [facility] Comment on above: Normal < 5.7 % Predi abetic 5.7 - 6.4 % Diabetic >or= 6.5 % Please note range changes. Basophil percentageOrdered B y: Jared Guzman on 10-27-2022 Bilirubin [Mass/Vol] 0.30 mg/dL 0.20-1.00 [facility] Comment on above: For patients on eltr ombopag therapy, use of Dimension [place] TBIL is not recommended. Chloride [Moles/Vol] 104 mmol/L 98-107 [facility] Cholesterol [Mass/Vol] 150 mg/dL <200 [facility] Comment on above: <200 mg/dL Desirable 200-240 mg/dL Borderline >240 mg/dL High Risk Glucose [Mass/Vol] 217 mg/dL 74-106 [facility] Comment on above: Glucose result great er than or equal to 200 mg/dLsuggests DIABETES MELLITUS per A.D.A. criteria. Potassium [Moles/Vol] 4.9 mmol/L 3.5-5.1 [facility] Protein [Mass/Vol] 6.5 g/dL 6.4-8.2 [facility] Sodium [Moles/Vol] 136 mmol/L 136-145 [facility] Triglyceride [Mass/Vol] 197 mg/dL <199 [facility] Comment on above: The drugs N-Acetylcy steine and Metamizole may falsely depress this assay.Serum Triglycerides Reference Interval Normal <150 mg/dL Borderline high 150 - 199 mg/dL High 200 - 499 mg/dL Very High > or = 500 mg/dL WBC (Bld) [#/Vol] 7.5 10*3/uL 4.4-11.0 [facility] Blood erythrocytes count (nu mber/volume)Ordered By: Jared Guzman on 10-27-2022 RBC (Bld) [#/Vol] 4.03 10*6/uL 4.6-6.[address] [facility] Blood hemoglobin measurement (mass/volume)Ordered By: Jared Guzman on 10-27-2022 Hemoglobin (Bld) [Mass/Vol] 11.3 g/dL 13.0-16.5 [facility] Blood platelet mean volumeOr dered By: Jared Guzman on 10-27-2022 Platelet mean volume (Bld) [Entitic vol] 10.1 fL 6.2-12.0 [facility] Determination of erythrocyte mean corpuscular volume (MCV)Ordered By: Jared Guzman on 10-27-2022 MCV (RBC) [Entitic vol] 89.3 fL 80-94 [facility] Hematocrit Auto (Bld) [Volum e fraction]Ordered By: Jared Guzman on 10-27-2022 Hematocrit (Bld) [Volume fraction] 36.0 % 40-54 [facility] Laboratory - Chemistry and C hemistry - challengeOrdered By: Jared Guzman on 10-27-2022 ALP [Catalytic activity/Vol] 179 U/L 45-117 [facility] ALT [Catalytic activity/Vol] 41 U/L 16-61 [facility] CO2 [Moles/Vol] 26.0 mmol/L 21.0-32.0 [facility] Globulin (S) [Mass/Vol] 3.4 g/dL 2.2-4.2 [facility] Urea nitrogen/Creatinine [Mass ratio] 27.7 mg/mg 10-20 [facility] Laboratory - Hematology and Cell countsOrdered By: Jared Guzman on 10-27-2022 Erythrocyte distribution width (RBC) [Entitic vol] 45.3 fL 35.1-43.9 [facility] Erythrocyte distribution width (RBC) [Ratio] 13.8 % 11.6-14.6 [facility] MCH (RBC) [Entitic mass] 28.0 pg 27.0-32.0 [facility] MCHC Auto (RBC) [Mass/Vol]Or dered By: Jared Guzman on 10-27-2022 MCHC (RBC) [Mass/Vol] 31.4 g/dL 32-36 [facility] No Panel InformationOrdered By: Jared Guzman on 10-27-2022 Estimated GFR (MDRD) Amer 123 mL/min >60 [facility] Comment on above: GFR Calc Estimated GFR (MDRD) Non-Af Amer 102 mL/min >60 [facility] Comment on above: Non- GFR Calc Platelets bldOrdered By: Mike Guzman on 10-27-2022 Platelets (Bld) [#/Vol] 343 10*3/uL 150-450 [facility] Serum or plasma albumin mauricio urement (mass/volume)Ordered By: Jared Guzman on 10-27-2022 Albumin [Mass/Vol] 3.1 g/dL 3.2-5.0 [facility] Serum or plasma albumin/glob ulin mass ratioOrdered By: Jared Guzman on 10-27-2022 Albumin/Globulin [Mass ratio] 0.9 {ratio} 0.9-2.4 [facility] Serum or plasma calcium mauricio urement (mass/volume)Ordered By: Jared Guzman on 10-27-2022 Calcium [Mass/Vol] 9.0 mg/dL 8.5-10.1 [facility] Serum or plasma cholesterol in HDL measurement (mass/volume)Ordered By: Jared Guzman on 10-27-2022 Cholesterol in HDL [Mass/Vol] 34 mg/dL >40 [facility] Comment on above: The drugs N-Acetylcy steine and Metamizole may falsely depress this assay. Reference Range HDL <40 mg/dL Low HDL Cholesterol HDL >or= 60 mg/dL High HDL Cholesterol Serum or plasma cholesterol in VLDL measurement (mass/volume)Ordered By: Jared Guzman on 10-27-2022 Cholesterol in VLDL [Mass/Vol] 39 mg/dL 5-40 [facility] Serum or plasma creatinine m easurement (mass/volume)Ordered By: Jared Guzman on 10-27-2022 Creatinine [Mass/Vol] 0.83 mg/dL 0.70-1.30 [facility] Comment on above: The validity of the calculated GFR & GFRAA in patients over 70 years has not been determined. Clinical correlation is essential. Serum or plasma low density lipoprotein (LDL) cholesterol measurement (mass/volume)Ordered By: Jared Guzman on 10-27-2022 Cholesterol in LDL [Mass/Vol] 77 mg/dL 0-130 [facility] Serum or plasma urea nitroge n measurement (mass/volume)Ordered By: Jared Guzman on 10-27-2022 Urea nitrogen [Mass/Vol] 23 mg/dL 7-18 [facility] Thin prep Papanicolaou smear with manual screeningOrdered By: Jared Guzman on 10-27-2022 Thin prep Papanicolaou smear with manual screening 16 U/L 15-37 [facility] Thin prep Papanicolaou smear with manual screening 6 5-15 [facility] Basophil percentageon 2021 Chloride [Moles/Vol] 105 mmol/L 98-107 [facility] Work Phone: Glucose [Mass/Vol] 188 mg/dL 74-106 [facility] Work Phone: Comment on above: Fasting Glucose resu lt greater than or equal to 126 mg/dL suggests DIABETES MELLITUS per A.D.A. criteria. Potassium [Moles/Vol] 5.1 mmol/L 3.5-5.1 [facility] Work Phone: Sodium [Moles/Vol] 134 mmol/L 136-145 [facility] Work Phone: WBC (Bld) [#/Vol] 9.0 10*3/uL 4.4-11.0 [facility] Work Phone: Blood erythrocytes count (nu mber/volume)on 06-24-2022 RBC (Bld) [#/Vol] 4.12 10*6/uL 4.6-6.2 [facility] Work Phone: Blood hemoglobin measurement (mass/volume)on 06-24-2022 Hemoglobin (Bld) [Mass/Vol] 11.5 g/dL 13.0-16.5 [facility] Work Phone: Blood platelet mean volumeon 06-24-2022 Platelet mean volume (Bld) [Entitic vol] 10.7 fL 6.2-12.0 [facility] Work Phone: Determination of erythrocyte mean corpuscular volume (MCV)on 06-24-2022 MCV (RBC) [Entitic vol] 87.9 fL 80-94 [facility] Work Phone: Hematocrit Auto (Bld) [Volum e fraction]on 06-24-2022 Hematocrit (Bld) [Volume fraction] 36.2 % 40-54 [facility] Work Phone: Laboratory - Chemistry and C hemistry - challengeon 06-24-2022 CO2 [Moles/Vol] 22.0 mmol/L 21.0-32.0 [facility] Work Phone: Urea nitrogen/Creatinine [Mass ratio] 42.1 mg/mg 10-20 [facility] Work Phone: Laboratory - Hematology and Cell countson 06-24-2022 Erythrocyte distribution width (RBC) [Entitic vol] 45.2 fL 35.1-43.9 [facility] Work Phone: Erythrocyte distribution width (RBC) [Ratio] 14.1 % 11.6-14.6 [facility] Work Phone: MCH (RBC) [Entitic mass] 27.9 pg 27.0-32.0 [facility] Work Phone: MCHC Auto (RBC) [Mass/Vol]on 06-24-2022 MCHC (RBC) [Mass/Vol] 31.8 g/dL 32-36 [facility] Work Phone: No Panel Informationon 06-24 Estimated GFR (MDRD) Amer 119 mL/min >60 [facility] Work Phone: Comment on above: GFR Calc Estimated GFR (MDRD) Non-Af Amer 99 mL/min >60 [facility] Work Phone: Comment on above: Non- GFR Calc Platelets bldon 06-24-2022 Platelets (Bld) [#/Vol] 396 10*3/uL 150-450 [facility] Work Phone: Serum or plasma calcium mauricio urement (mass/volume)on 06-24-2022 Calcium [Mass/Vol] 9.1 mg/dL 8.5-10.1 [facility] Work Phone: Serum or plasma creatinine m easurement (mass/volume)on 06-24-2022 Creatinine [Mass/Vol] 0.86 mg/dL 0.70-1.30 [facility] Work Phone: Comment on above: The validity of the calculated GFR & GFRAA in patients over 70 years has not been determined. Clinical correlation is essential. Serum or plasma urea nitroge n measurement (mass/volume)on 06-24-2022 Urea nitrogen [Mass/Vol] 36 mg/dL 7-18 [facility] Work Phone: Thin prep Papanicolaou smear with manual screeningon 06-24-2022 Thin prep Papanicolaou smear with manual screening 7 5-15 [facility] Work Phone: Basophil percentageon 2021 Bilirubin [Mass/Vol] 0.20 mg/dL 0.20-1.00 [facility] Work Phone: Comment on above: For patients on eltr ombopag therapy, use of Dimension [place] TBIL is not recommended. Chloride [Moles/Vol] 104 mmol/L 98-107 [facility] Work Phone: Glucose [Mass/Vol] 299 mg/dL 74-106 [facility] Work Phone: Comment on above: Glucose result great er than or equal to 200 mg/dLsuggests DIABETES MELLITUS per A.D.A. criteria. Potassium [Moles/Vol] 5.0 mmol/L 3.5-5.1 [facility] Work Phone: Protein [Mass/Vol] 6.7 g/dL 6.4-8.2 [facility] Work Phone: Sodium [Moles/Vol] 135 mmol/L 136-145 [facility] Work Phone: WBC (Bld) [#/Vol] 7.9 10*3/uL 4.4-11.0 [facility] Work Phone: Blood erythrocytes count (nu mber/volume)on 05-25-2022 RBC (Bld) [#/Vol] 3.86 10*6/uL 4.6-6.[address] [facility] Work Phone: Blood hemoglobin measurement (mass/volume)on 05-25-2022 Hemoglobin (Bld) [Mass/Vol] 10.5 g/dL 13.0-16.5 [facility] Work Phone: Blood platelet mean volumeon 05-25-2022 Platelet mean volume (Bld) [Entitic vol] 10.5 fL 6.2-12.0 [facility] Work Phone: Determination of erythrocyte mean corpuscular volume (MCV)on 05-25-2022 MCV (RBC) [Entitic vol] 88.1 fL 80-94 [facility] Work Phone: Hematocrit Auto (Bld) [Volum e fraction]on 05-25-2022 Hematocrit (Bld) [Volume fraction] 34.0 % 40-54 [facility] Work Phone: Laboratory - Chemistry and C hemistry - challengeon 05-25-2022 ALP [Catalytic activity/Vol] 187 U/L 45-117 [facility] Work Phone: ALT [Catalytic activity/Vol] 37 U/L 16-61 [facility] Work Phone: CO2 [Moles/Vol] 25.0 mmol/L 21.0-32.0 [facility] Work Phone: Globulin (S) [Mass/Vol] 3.8 g/dL 2.2-4.2 [facility] Work Phone: Urea nitrogen/Creatinine [Mass ratio] 27.5 mg/mg 10-20 [facility] Work Phone: Laboratory - Hematology and Cell countson 05-25-2022 Erythrocyte distribution width (RBC) [Entitic vol] 45.1 fL 35.1-43.9 [facility] Work Phone: Erythrocyte distribution width (RBC) [Ratio] 14.1 % 11.6-14.6 [facility] Work Phone: MCH (RBC) [Entitic mass] 27.2 pg 27.0-32.0 [facility] Work Phone: MCHC Auto (RBC) [Mass/Vol]on 05-25-2022 MCHC (RBC) [Mass/Vol] 30.9 g/dL 32-36 [facility] Work [facility]: No Panel Informationon 05-25 Estimated GFR (MDRD) Amer 123 mL/min >60 [facility] Work Phone: Comment on above: GFR Calc Estimated GFR (MDRD) Non-Af Amer 101 mL/min >60 [facility] Work Phone: Comment on above: Non- GFR Calc Platelets bldon 05-25-2022 Platelets (Bld) [#/Vol] 320 10*3/uL 150-450 [facility] Work Phone: Serum or plasma albumin mauricio urement (mass/volume)on 05-25-2022 Albumin [Mass/Vol] 2.9 g/dL 3.2-5.0 [facility] Work Phone: Serum or plasma albumin/glob ulin mass ratioon 05-25-2022 Albumin/Globulin [Mass ratio] 0.8 {ratio} 0.9-2.4 [facility] Work Phone: Serum or plasma calcium mauricio urement (mass/volume)on 05-25-2022 Calcium [Mass/Vol] 9.0 mg/dL 8.5-10.1 [facility] Work Phone: Serum or plasma creatinine m easurement (mass/volume)on 05-25-2022 Creatinine [Mass/Vol] 0.84 mg/dL 0.70-1.30 [facility] Work Phone: Comment on above: The validity of the calculated GFR & GFRAA in patients over 70 years has not been determined. Clinical correlation is essential. Serum or plasma urea nitroge n measurement (mass/volume)on 05-25-2022 Urea nitrogen [Mass/Vol] 23 mg/dL 7-18 [facility] Work Phone: Thin prep Papanicolaou smear with manual screeningon 05-25-2022 Thin prep Papanicolaou smear with manual screening 14 U/L 15-37 [facility] Work Phone: Thin prep Papanicolaou smear with manual screening 6 5-15 [facility] Work Phone: Basophil percentageon 2021 Cholesterol [Mass/Vol] 135 mg/dL <200 [facility] Work Phone: Comment on above: <200 mg/dL Desirable 200-240 mg/dL Borderline >240 mg/dL High Risk Triglyceride [Mass/Vol] 183 mg/dL <199 [facility] Work Phone: Comment on above: The drugs N-Acetylcy steine and Metamizole may falsely depress this assay.Serum Triglycerides Reference Interval Normal <150 mg/dL Borderline high 150 - 199 mg/dL High 200 - 499 mg/dL Very High > or = 500 mg/dL Serum or plasma cholesterol in HDL measurement (mass/volume)on 04-27-2022 Cholesterol in HDL [Mass/Vol] 35 mg/dL >40 [facility] Work Phone: Comment on above: The drugs N-Acetylcy steine and Metamizole may falsely depress this assay. Reference Range HDL <40 mg/dL Low HDL Cholesterol HDL >or= 60 mg/dL High HDL Cholesterol Serum or plasma cholesterol in VLDL measurement (mass/volume)on 04-27-2022 Cholesterol in VLDL [Mass/Vol] 37 mg/dL 5-40 [facility] Work Phone: Serum or plasma low density lipoprotein (LDL) cholesterol measurement (mass/volume)on 04-27-2022 Cholesterol in LDL [Mass/Vol] 63 mg/dL 0-130 [facility] Work Phone: Basophil percentageon 2021 Bilirubin [Mass/Vol] 0.30 mg/dL 0.20-1.00 [facility] Work Phone: Comment on above: For patients on eltr ombopag therapy, use of Dimension [place] TBIL is not recommended. Chloride [Moles/Vol] 105 mmol/L 98-107 [facility] Work Phone: Glucose [Mass/Vol] 260 mg/dL 74-106 [facility] Work Phone: Comment on above: Glucose result great er than or equal to 200 mg/dLsuggests DIABETES MELLITUS per A.D.A. criteria. Potassium [Moles/Vol] 4.7 mmol/L 3.5-5.1 [facility] Work Phone: Protein [Mass/Vol] 6.8 g/dL 6.4-8.2 [facility] Work Phone: Sodium [Moles/Vol] 134 mmol/L 136-145 [facility] Work Phone: WBC (Bld) [#/Vol] 8.9 10*3/uL 4.4-11.0 [facility]: Blood erythrocytes count (nu mber/volume)on 04-13-2022 RBC (Bld) [#/Vol] 3.91 10*6/uL 4.6-6.[address] [facility] Work Phone: Blood hemoglobin measurement (mass/volume)on 04-13-2022 Hemoglobin (Bld) [Mass/Vol] 11.0 g/dL 13.0-16.5 [facility] Work Phone: Blood platelet mean volumeon 04-13-2022 Platelet mean volume (Bld) [Entitic vol] 10.3 fL 6.2-12.0 [facility] Work Phone: Determination of erythrocyte mean corpuscular volume (MCV)on 04-13-2022 MCV (RBC) [Entitic vol] 87.7 fL 80-94 [facility] Work Phone: Hematocrit Auto (Bld) [Volum e fraction]on 04-13-2022 Hematocrit (Bld) [Volume fraction] 34.3 % 40-54 [facility] Work Phone: Laboratory - Chemistry and C hemistry - challengeon 04-13-2022 ALP [Catalytic activity/Vol] 189 U/L 45-117 [facility] Work Phone: ALT [Catalytic activity/Vol] 43 U/L 16-61 [facility] Work Phone: CO2 [Moles/Vol] 23.0 mmol/L 21.0-32.0 [facility] Work Phone: Globulin (S) [Mass/Vol] 3.6 g/dL 2.2-4.2 [facility] Work Phone: Urea nitrogen/Creatinine [Mass ratio] 34.9 mg/mg 10-20 [facility] Work Phone: Laboratory - Hematology and Cell countson 04-13-2022 Erythrocyte distribution width (RBC) [Entitic vol] 42.3 fL 35.1-43.9 [facility] Work Phone: Erythrocyte distribution width (RBC) [Ratio] 13.2 % 11.6-14.6 [facility] Work Phone: MCH (RBC) [Entitic mass] 28.1 pg 27.0-32.0 [facility] Work Phone: MCHC Auto (RBC) [Mass/Vol]on 04-13-2022 MCHC (RBC) [Mass/Vol] 32.1 g/dL 32-36 [facility] Work Phone: No Panel Informationon 04-13 Estimated GFR (MDRD) Amer 134 mL/min >60 [facility] Work Phone: Comment on above: GFR Calc Estimated GFR (MDRD) Non-Af Amer 111 mL/min >60 [facility] Work Phone: Comment on above: Non- GFR Calc Platelets bldon 04-13-2022 Platelets (Bld) [#/Vol] 310 10*3/uL 150-450 [facility] Work Phone: Serum or plasma albumin mauricio urement (mass/volume)on 04-13-2022 Albumin [Mass/Vol] 3.2 g/dL 3.2-5.0 [facility] Work Phone: Serum or plasma albumin/glob ulin mass ratioon 04-13-2022 Albumin/Globulin [Mass ratio] 0.9 {ratio} 0.9-2.4 [facility] Work Phone: Serum or plasma calcium mauricio urement (mass/volume)on 04-13-2022 Calcium [Mass/Vol] 9.1 mg/dL 8.5-10.1 [facility] Work Phone: Serum or plasma creatinine m easurement (mass/volume)on 04-13-2022 Creatinine [Mass/Vol] 0.77 mg/dL 0.70-1.30 [facility] Work Phone: Comment on above: The validity of the calculated GFR & GFRAA in patients over 70 years has not been determined. Clinical correlation is essential. Serum or plasma urea nitroge n measurement (mass/volume)on 04-13-2022 Urea nitrogen [Mass/Vol] 27 mg/dL 7-18 [facility] Work Phone: Thin prep Papanicolaou smear with manual screeningon 04-13-2022 Thin prep Papanicolaou smear with manual screening 16 U/L 15-37 [facility] Work Phone: Thin prep Papanicolaou smear with manual screening 6 5-15 [facility] Work Phone: Basophil percentageon 2021 Chloride [Moles/Vol] 105 mmol/L 98-107 [facility] Work Phone: Glucose [Mass/Vol] 284 mg/dL 74-106 [facility] Work Phone: Comment on above: Glucose result great er than or equal to 200 mg/dLsuggests DIABETES MELLITUS per A.D.A. criteria. Potassium [Moles/Vol] 4.6 mmol/L 3.5-5.1 [facility] Work Phone: Sodium [Moles/Vol] 134 mmol/L 136-145 [facility] Work Phone: WBC (Bld) [#/Vol] 7.7 10*3/uL 4.4-11.0 [facility] Work Phone: Blood erythrocytes count (nu mber/volume)on 03-02-2022 RBC (Bld) [#/Vol] 3.83 10*6/uL 4.6-6.[address] [facility] Work Phone: Blood hemoglobin measurement (mass/volume)on 03-02-2022 Hemoglobin (Bld) [Mass/Vol] 10.7 g/dL 13.0-16.5 [facility] Work Phone: Blood platelet mean volumeon 03-02-2022 Platelet mean volume (Bld) [Entitic vol] 10.6 fL 6.2-12.0 [facility] Work Phone: Determination of erythrocyte mean corpuscular volume (MCV)on 03-02-2022 MCV (RBC) [Entitic vol] 90.1 fL 80-94 [facility] Work Phone: Hematocrit Auto (Bld) [Volum e fraction]on 03-02-2022 Hematocrit (Bld) [Volume fraction] 34.5 % 40-54 [facility] Work Phone: Laboratory - Chemistry and C hemistry - challengeon 03-02-2022 CO2 [Moles/Vol] 22.0 mmol/L 21.0-32.0 [facility] Work Phone: Urea nitrogen/Creatinine [Mass ratio] 31.8 mg/mg 10-20 [facility] Work Phone: Laboratory - Hematology and Cell countson 03-02-2022 Erythrocyte distribution width (RBC) [Entitic vol] 44.5 fL 35.1-43.9 [facility] Work Phone: Erythrocyte distribution width (RBC) [Ratio] 13.5 % 11.6-14.6 [facility] Work Phone: MCH (RBC) [Entitic mass] 27.9 pg 27.0-32.0 [facility] Work Phone: MCHC Auto (RBC) [Mass/Vol]on 03-02-2022 MCHC (RBC) [Mass/Vol] 31.0 g/dL 32-36 [facility] Work Phone: No Panel Informationon 03-02 Estimated GFR (MDRD) Amer 132 mL/min >60 [facility] Work Phone: Comment on above: GFR Calc Estimated GFR (MDRD) Non-Af Amer 109 mL/min >60 [facility] Work Phone: Comment on above: Non- GFR Calc Platelets bldon 03-02-2022 Platelets (Bld) [#/Vol] 310 10*3/uL 150-450 [facility] Work Phone: Serum or plasma calcium mauricio urement (mass/volume)on 03-02-2022 Calcium [Mass/Vol] 9.0 mg/dL 8.5-10.1 [facility] Work Phone: Serum or plasma creatinine m easurement (mass/volume)on 03-02-2022 Creatinine [Mass/Vol] 0.79 mg/dL 0.70-1.30 [facility] Work Phone: Comment on above: The validity of the calculated GFR & GFRAA in patients over 70 years has not been determined. Clinical correlation is essential. Serum or plasma urea nitroge n measurement (mass/volume)on 03-02-2022 Urea nitrogen [Mass/Vol] 25 mg/dL 7-18 [facility] Work Phone: Thin prep Papanicolaou smear with manual screeningon 03-02-2022 Thin prep Papanicolaou smear with manual screening 7 5-15 [facility] Work Phone: Basophil percentageon 2021 Bilirubin [Mass/Vol] 0.30 mg/dL 0.20-1.00 [facility] Work Phone: Comment on above: For patients on eltr ombopag therapy, use of Dimension [place] TBIL is not recommended. Chloride [Moles/Vol] 103 mmol/L 98-107 [facility] Work Phone: Glucose [Mass/Vol] 334 mg/dL 74-106 [facility] Work Phone: Comment on above: Glucose result great er than or equal to 200 mg/dLsuggests DIABETES MELLITUS per A.D.A. criteria. Potassium [Moles/Vol] 5.0 mmol/L 3.5-5.1 [facility] Work Phone: Protein [Mass/Vol] 6.8 g/dL 6.4-8.2 [facility] Work Phone: Sodium [Moles/Vol] 135 mmol/L 136-145 [facility] Work Phone: WBC (Bld) [#/Vol] 7.0 10*3/uL 4.4-11.0 [facility] Work Phone: Blood erythrocytes count (nu mber/volume)on 01-29-2022 RBC (Bld) [#/Vol] 3.91 10*6/uL 4.6-6.[address] [facility] Work Phone: Blood hemoglobin measurement (mass/volume)on 01-29-2022 Hemoglobin (Bld) [Mass/Vol] 10.9 g/dL 13.0-16.5 [facility] Work Phone: Blood platelet mean volumeon 01-29-2022 Platelet mean volume (Bld) [Entitic vol] 10.9 fL 6.2-12.0 [facility] Work Phone: Determination of erythrocyte mean corpuscular volume (MCV)on 01-29-2022 MCV (RBC) [Entitic vol] 89.8 fL 80-94 [facility] Work Phone: Hematocrit Auto (Bld) [Volum e fraction]on 01-29-2022 Hematocrit (Bld) [Volume fraction] 35.1 % 40-54 [facility] Work Phone: Laboratory - Chemistry and C hemistry - challengeon 01-29-2022 ALP [Catalytic activity/Vol] 194 U/L 45-117 [facility] Work Phone: ALT [Catalytic activity/Vol] 38 U/L 16-61 [facility] Work Phone: CO2 [Moles/Vol] 27.0 mmol/L 21.0-32.0 [facility] Work Phone: Globulin (S) [Mass/Vol] 3.5 g/dL 2.2-4.2 [facility] Work Phone: Urea nitrogen/Creatinine [Mass ratio] 20.6 mg/mg 10-20 [facility] Work Phone: Laboratory - Hematology and Cell countson 01-29-2022 Erythrocyte distribution width (RBC) [Entitic vol] 43.8 fL 35.1-43.9 [facility] Work Phone: Erythrocyte distribution width (RBC) [Ratio] 13.3 % 11.6-14.6 [facility] Work Phone: MCH (RBC) [Entitic mass] 27.9 pg 27.0-32.0 [facility] Work Phone: MCHC Auto (RBC) [Mass/Vol]on 01-29-2022 MCHC (RBC) [Mass/Vol] 31.1 g/dL 32-36 [facility] Work Phone: No Panel Informationon 01-29 Estimated GFR (MDRD) Amer 117 mL/min >60 [facility] Work Phone: Comment on above: GFR Calc Estimated GFR (MDRD) Non-Af Amer 97 mL/min >60 [facility] Work Phone: Comment on above: Non- GFR Calc Platelets bldon 01-29-2022 Platelets (Bld) [#/Vol] 306 10*3/uL 150-450 [facility] Work Phone: Serum or plasma albumin mauricio urement (mass/volume)on 01-29-2022 Albumin [Mass/Vol] 3.3 g/dL 3.2-5.0 [facility] Work Phone: Serum or plasma albumin/glob ulin mass ratioon 01-29-2022 Albumin/Globulin [Mass ratio] 0.9 {ratio} 0.9-2.4 [facility] Work Phone: Serum or plasma calcium mauricio urement (mass/volume)on 01-29-2022 Calcium [Mass/Vol] 8.8 mg/dL 8.5-10.1 [facility] Work Phone: Serum or plasma creatinine m easurement (mass/volume)on 01-29-2022 Creatinine [Mass/Vol] 0.87 mg/dL 0.70-1.30 [facility] Work Phone: Comment on above: The validity of the calculated GFR & GFRAA in patients over 70 years has not been determined. Clinical correlation is essential. Serum or plasma urea nitroge n measurement (mass/volume)on 01-29-2022 Urea nitrogen [Mass/Vol] 18 mg/dL 7-18 [facility] Work Phone: Thin prep Papanicolaou smear with manual screeningon 01-29-2022 Thin prep Papanicolaou smear with manual screening 11 U/L 15-37 [facility] Work Phone: Thin prep Papanicolaou smear with manual screening 5 5-15 [facility] Work Phone: Whole blood hemoglobin A1c/t otal hemoglobin ratio (mass fraction)on 01-29-2022 HbA1c (Bld) [Mass fraction] 8.8 % 3.8-5.6 [facility] Work Phone: Comment on above: Normal < 5.7 % Predi abetic 5.7 - 6.4 % Diabetic >or= 6.5 % Please note range changes. Basophil percentageon 2021 Cholesterol [Mass/Vol] 169 mg/dL <200 [facility] Work Phone: Comment on above: <200 mg/dL Desirable 200-240 mg/dL Borderline >240 mg/dL High Risk Triglyceride [Mass/Vol] 177 mg/dL <199 [facility] Work Phone: Comment on above: The drugs N-Acetylcy steine and Metamizole may falsely depress this assay.Serum Triglycerides Reference Interval Normal <150 mg/dL Borderline high 150 - 199 mg/dL High 200 - 499 mg/dL Very High > or = 500 mg/dL Serum or plasma cholesterol in HDL measurement (mass/volume)on 01-19-2022 Cholesterol in HDL [Mass/Vol] 35 mg/dL >40 [facility] Work Phone: Comment on above: The drugs N-Acetylcy steine and Metamizole may falsely depress this assay. Reference Range HDL <40 mg/dL Low HDL Cholesterol HDL >or= 60 mg/dL High HDL Cholesterol Serum or plasma cholesterol in VLDL measurement (mass/volume)on 01-19-2022 Cholesterol in VLDL [Mass/Vol] 35 mg/dL 5-40 [facility] Work Phone: Serum or plasma low density lipoprotein (LDL) cholesterol measurement (mass/volume)on 01-19-2022 Cholesterol in LDL [Mass/Vol] 99 mg/dL 0-130 [facility] Work Phone: Basic Metabolic Panelon 12-09 Calcium [Mass/Vol] 9.4 mg/dL Normal 8.4-10.4 [facility] Comment on above: Performed By: #### B MP3, HGHCT #### [facility] [address] [place] [address] Glucose [Mass/Vol] 119 mg/dL High 70-100 [facility] Comment on above: Performed By: #### B MP3, HGHCT #### [facility] [address] [place] [address] Urea nitrogen [Mass/Vol] 19 mg/dL Normal 9-20 [facility] Comment on above: Performed By: #### B MP3, HGHCT #### [facility] [address] [place] [address] Anion gap [Moles/Vol] 8 mmol/L Normal 3-13 [facility] Comment on above: Performed By: #### B MP3, HGHCT #### [facility] [address] [place] [address] CO2 [Moles/Vol] 25 mmol/L Normal 22-30 [facility] Comment on above: Performed By: #### B MP3, HGHCT #### [facility] [address] [place] [address] Creatinine [Mass/Vol] 0.73 mg/dL Normal 0.52-1.25 [facility] Comment on above: Performed By: #### B MP3, HGHCT #### [facility] [address] [place] [address] eGFR OTHER > 90.0 Normal >60 [facility] Comment on above: Result Comment: KDIG [...] Performed By: #### B MP3, HGHCT #### [facility] [address] [place] [address] GFR/1.73 sq M.predicted among blacks MDRD (S/P/Bld) [Vol rate/Area] mL/min/{1.73_m2} Normal >60 [facility] Comment on above: Performed By: #### B MP3, HGHCT #### [facility] [address] [place] [address] Potassium [Moles/Vol] 4.6 mmol/L Normal 3.5-5.1 [facility] Comment on above: Performed By: #### B MP3, HGHCT #### [facility] [address] [place] [address] Chloride [Moles/Vol] 105 mmol/L Normal 98-107 [facility] Comment on above: Performed By: #### B MP3, HGHCT #### [facility] [address] [place] [address] Sodium [Moles/Vol] 137 mmol/L Normal 135-145 [facility] Comment on above: Performed By: #### B MP3, HGHCT #### [facility] [address] [place] [address] Glucose,Bedsideon 12-23-2021 Glucose [Mass/Vol] 122 mg/dL High 70-100 [facility] Comment on above: Result Comment: Test performed by glucose meter. Results may be 10%-15% lower than serum/plasma values. (CLIA ID [id number]) Performed By: #### B GLU #### [facility] [address] [place] [address] Glucose [Mass/Vol] 107 mg/dL High 70-100 [facility] Comment on above: Result Comment: Test performed by glucose meter. Results may be 10%-15% lower than serum/plasma values. (CLIA ID [id number]) Performed By: #### B GLU #### [facility] [address] [place] [address] Hemoglobin AND Hematocriton 12-23-2021 Hematocrit (Bld) [Volume fraction] 35.7 % Normal 35.0-47.0 [facility] Comment on above: Performed By: #### B MP3, HGHCT #### [facility] [address] [place] [address] Hemoglobin (Bld) [Mass/Vol] 11.8 g/dL Normal 11.7-16.0 [facility] Comment on above: Performed By: #### B MP3, HGHCT #### [facility] [address] [place] [address] Op Noteon 12-23-2021 Op Note Operative Note Patient: Will Jacinto Date of : 1965 Date of Procedure: 12/23/21 Pre-Op Diagnosis: endometrial hyperplasia Post-Op Diagnosis: Same D&C/hysteroscopy Machine I Trimmer: * Surgery not found * Anesthesia: general [...] curetted and specimen sent. Procedure terminated. Normal [facility] Surgical Pathologyon 022 Surgical Pathology [id number] [facility] PATHOLOGY AND LABORATORY MEDICINE [address] [place] [address] Fax - FINAL SURGICAL PATHOLOGY REPORT NAME: WILL JACINTO N [id number] : 1965 56 [facility] [id number] LOCATION: [place] [address] PROCEDURE 12/23/2021 DATE: SURGEON: MICHAEL CUNNINGHAM M.D. [...] 0.4 cm. All submitted in one cassette. [facility]/LS[facility] Disclaimer: The following statement applies to all immunohistochemistry, in situ hybridization, molecular studies, and immunofluorescence testing. The use of one or more reagents in the above tests is regulated as an analyte specific reagent (ASR). These tests were developed and their performance characteristics determined by the clinical laboratories of [facility]. They have not been cleared by [...] negativity on decalcified specimens. Case reviewed at [place] [address] [place] [address]. DEPARTMENT OF PATHOLOGY AND LABORATORY MEDICINE [place], [place] [address] [email or web address] Normal [facility] Comprehensive Metabolic Pane gigi 12-08-2020 Albumin [Mass/Vol] 4.0 g/dL 3.5 - 5 g/dL [place], [place] ALP [Catalytic activity/Vol] 121 U/L 38 - 126 U/L [place] ALT [Catalytic activity/Vol] 47 U/L High 0 - 34 U/L [place] Comment on above: The ALT test is perf ormed by an updated assay method. Please note that the reference intervals have been changed and are now sex specific. Anion gap [Moles/Vol] 6 mmol/L [place], [place] AST [Catalytic activity/Vol] 25 U/L 15 - 46 U/L [place] Bilirubin Ql (U) 0.6 mg/dL 0.2 - 1.3 mg/dL [place] Calcium [Mass/Vol] 9.7 mg/dL 8.4 - 10. 4 mg/dL [place] Chloride [Moles/Vol] 95 mmol/L Low 98 - 10 7 mmol/L [place] CO2 [Moles/Vol] 30 mmol/L 22 - 30 mmol/L [place] Creatinine [Mass/Vol] 0.64 mg/dL 0.52 - 1.25 mg/dL [place] EGFR IF NonAfrican [place] >90.0 >60 mL/min [place] Comment on above: KDIGO guidelines pro [...] MDRD (S/P/Bld) [Vol rate/Area] mL/min/{1.73_m2} >60 mL/min [place] Glucose [Mass/Vol] 248 mg/dL High 70 - 100 mg/dL [place] Interpretation and review of laboratory results Abnormal [place] Potassium [Moles/Vol] 4.7 mmol/L 3.5 - 5.1 mmol/L [place] Protein [Mass/Vol] 6.8 g/dL 6.3 - 8.2 g/dL [place] Sodium [Moles/Vol] 132 mmol/L Low 135 - 145 mmol/L [place] Urea nitrogen [Mass/Vol] 12 mg/dL 7 - 20 mg/dL [place] Hemogram (CBC) w/Auto Diffon 12-08-2020 Absolute Baso # 0.1 10*3/uL 0 - 0.2 10*3/uL [place] Absolute Neut # 6.1 10*3/uL 1.8 - 7 10*3/uL [place] Basophils/100 WBC (Bld) 0.8 % 0 - 2 % [place], [place] Eosinophils (Bld) [#/Vol] 0.1 10*3/uL 0 - 0.5 10*3/uL [place] Eosinophils/100 WBC (Bld) 1.0 % 1 - 6 % [place] Erythrocyte distribution width (RBC) [Ratio] 15.7 % High 11.5 - 14.5 % [place] Granulocytes/100 WBC (Bld) 73.2 % 40 - 80 % [place] Hematocrit (Bld) [Volume fraction] 37.0 % 35 - 47 % [place] Hemoglobin (Bld) [Mass/Vol] 12.3 g/dL 11.7 - 16 g/dL [place] Interpretation and review of laboratory results Abnormal [place] Lymphocytes (Bld) [#/Vol] 1.5 10*3/uL 1 - 4.3 10*3/uL [place] Lymphocytes/100 WBC (Bld) 18.0 % Low 20 - 40 % [place] MCH (RBC) [Entitic mass] 28.6 pg 26 - 34 pg [place] MCHC (RBC) [Mass/Vol] 33.3 % 32 - 36 % [place] MCV (RBC) [Entitic vol] 85.8 fL 79 - 98 fL [place], [place] Monocytes (Bld) [#/Vol] 0.6 10*3/uL 0 - 0.8 10*3/uL [place] Monocytes/100 WBC (Bld) 7.0 % 2 - 10 % [place] Platelet mean volume (Bld) [Entitic vol] 7.9 fL 7.4 - 10.4 fL [place] Platelets (Bld) [#/Vol] 382 10*3/uL 140 - 440 10*3/uL [place] RBC (Bld) [#/Vol] 4.32 10*6/uL 3.8 - 5.2 10*6/uL [place] WBC (Bld) [#/Vol] 8.4 10*3/uL 3.6 - 10.7 10*3/uL [place] Test Performed by [facility], [address] [place] [address] Lipaseon 12-08-2020 Lipase [Catalytic activity/Vol] 45 U/L 23 - 300 U/L [place] Otheron 12-08-2020 Test Performed by [facility], [address] [place], [address] Troponinon 12-08-2020 Troponin I.cardiac [Mass/Vol] ng/mL 0 - 0.034 ng/mL [place] Comment on above: . Test Performed by [facility], [address] [place] [address] US ABDOMEN LIMITED Specify o rgan? GALLBLADDERon 12-08-2020 [facility] Incoming Radiology Results From [facility] - 12/08/2020 4:26 PM EST Patient Name: WILL JACINTO Ultrasound ACCESSION EXAM DATE/TIME PROCEDURE ORDERING PROVIDER [id number] 12/08/2020 16:22 EST US Abdomen Limited [id number] SHEIKH CPT code 62202 Reason For Exam (US Abdomen Limited) abd [...] MALAY Transcribed Date and Time: 12/08/2020 4:26 [place], [place] Patient Name: WILL ALVARADO Ultrasound ACCESSION EXAM DATE/TIME PROCEDURE ORDERING PROVIDER [id number] 12/08/2020 16:22 EST US Abdomen Limited [id number] DURHAM CPT code 92910 Reason For Exam (US Abdomen Limited) abd [...] MALAY Transcribed Date and Time: 12/08/2020 4:26 [place] Urinalysison 12-08-2020 Appearance (U) Turbid Abnormal Clear NA [place] Comment on above: . Bacteria, UA Moderate Abnormal Negative /[HPF] [place] Comment on above: . Bilirubin Urine Negative Negative mg/dL [place] Comment on above: . Color (U) Yellow Lt. Yellow NA [place] Comment on above: . Glucose, Ur 500 mg/dL Abnormal Normal (<70) [place] Comment on above: . Hyaline Casts, UA 3-5 Abnormal Negative /[LPF] [place] Comment on above: . Interpretation and review of laboratory results Abnormal [place] Ketones Ql (U) Negative Negative mg/dL [place] Comment on above: . LEUKOCYTES, UA 250 Abnormal Negative Kat/uL [place] Comment on above: . Mucous Threads Few Negative /[LPF] [place] Comment on above: . Nitrite, Urine Negative Negative NA [place] Comment on above: . Occult Blood,Urine 1.0 mg/dL Abnormal Negative [place] Comment on above: . pH (U) 7.0 [pH] [place] Comment on above: . Protein (U) [Mass/Vol] 50 mg/dL Abnormal Negative [place] Comment on above: . RBC (U) [#/Vol] /uL Abnormal 0 - 2 /[HPF] [place] Comment on above: . Specific [place], Urine 1.022 [place] Comment on above: . Squam Epithel, UA 3-5 3 - 5 /[HPF] [place] Comment on above: . Urobilinogen, Urine 4 mg/dL Abnormal Normal (0-1) [place] Comment on above: . WBC, UA 51-100 Abnormal 0 - 5 /[HPF] [place] Comment on above: . Test Performed by [facility], [address] [place], [place] [address] Urine microscopic confirmed via light microscopy. [place] XR CHEST PORTABLEon 12-08-19 Patient Name: WILL ALVARADO Diagnostic Radiology ACCESSION EXAM DATE/TIME PROCEDURE ORDERING PROVIDER [id number] 12/08/2020 16:00 EST CR Chest Portable [id number] ART BROOKS CPT code 86496 Reason For Exam (CR Chest Portable) chest [...] RACHEL Transcribed Date and Time: 12/08/2020 4:22 [facility], [place] Nati Jones Incoming Radiology Results From [facility] - 12/08/2020 4:22 PM EST Patient Name: WILL JACINTO Diagnostic Radiology ACCESSION EXAM DATE/TIME PROCEDURE ORDERING PROVIDER [id number] 12/08/2020 16:00 EST CR Chest Portable [id number] SHEIKH CPT code 87909 Reason For Exam (CR Chest Portable) chest [...] RACHEL Transcribed Date and Time: 12/08/2020 4:22 [facility], [place] CR Abdomen APon 11-28-2020 CR Abdomen AP Patient Name: WILL ALVARADO Diagnostic Radiology ACCESSION EXAM DATE/TIME PROCEDURE ORDERING PROVIDER [id number] 11/28/2020 09:00 EST CR Abdomen AP MD JD, CHAU CPT code 72755 Reason For Exam (CR Abdomen AP) ileus [...] Time: 11/28/2020 9:25 am Signed by: MD TIFFANY, JOEL Transcribed Date and Time: 11/28/2020 9:25 Normal [facility] Comp Metabolic Panelon 11-28 ALT [Catalytic activity/Vol] 30 U/L Normal 0-34 [facility] Comment on above: Result Comment: The ALT test is performed by an updated assay method. Please note that the reference intervals have been changed and are now sex specific. Performed By: #### C MP3 #### [facility] [address] [place], [place] Calcium [Mass/Vol] 8.7 mg/dL Normal 8.4-10.4 [facility] Comment on above: Performed By: #### C MP3 #### [facility] [address] [place], [place] Glucose [Mass/Vol] 100 mg/dL Normal 70-100 [facility] Comment on above: Performed By: #### C MP3 #### [facility] [address] [place], [place] ALP [Catalytic activity/Vol] 77 U/L Normal 38-126 [facility] Comment on above: Result Comment: Slig htly hemolysed, interpret with caution. Performed By: #### C MP3 #### [facility] [address], [place] Anion gap [Moles/Vol] 5 Normal [facility] Comment on above: Performed By: #### C MP3 #### [facility] [address] [place], [place] AST [Catalytic activity/Vol] 26 U/L Normal 15-46 [facility] Comment on above: Result Comment: Slig htly hemolysed, interpret with caution. Performed By: #### C MP3 #### [facility] [address], [place] Bilirubin [Mass/Vol] 0.6 mg/dL Normal 0.2-1.3 [facility] Comment on above: Performed By: #### C MP3 #### [facility] [address], [place] CO2 [Moles/Vol] 25 mmol/L Normal 22-30 [facility] Comment on above: Performed By: #### C MP3 #### [address] [address] [place], [place] Creatinine [Mass/Vol] 0.66 mg/dL Normal 0.52-1.25 [facility] Comment on above: Performed By: #### C MP3 #### [place] [address] [address], [place] GFR/1.73 sq M predicted among blacks MDRD (S/P/Bld) [Vol rate/Area] mL/min/{1.73_m2} Normal >60 [facility] Comment on above: Performed By: #### C MP3 #### [address] [address] [place], [place] GFR/1.73 sq M predicted among non-blacks MDRD (S/P/Bld) [Vol rate/Area] mL/min/{1.73_m2} Normal >60 [facility] Comment on above: Result Comment: KDIG [...] secretion. Performed By: #### C MP3 #### [place] [address] [place], [place] Protein [Mass/Vol] 6.0 g/dL Low 6.3-8.2 [facility] Comment on above: Performed By: #### C MP3 #### [place] [address] [address] [place], [place] Urea nitrogen [Mass/Vol] 10 mg/dL Normal 7-20 [facility] Comment on above: Performed By: #### C MP3 #### [facility] [address], [place] Potassium [Moles/Vol] 4.3 mmol/L Normal 3.5-5.1 [facility] Comment on above: Result Comment: Slig htly hemolysed, interpret with caution. Performed By: #### C MP3 #### [facility] [address], [place] Sodium [Moles/Vol] 134 mmol/L Low 135-145 [facility] Comment on above: Performed By: #### C MP3 #### [facility] [address], [place] Albumin [Mass/Vol] 3.3 g/dL Low 3.5-5.0 [facility] Comment on above: Performed By: #### C MP3 #### [facility] [address], [place] Chloride [Moles/Vol] 105 mmol/L Normal 98-107 [facility] Comment on above: Performed By: #### C MP3 #### [facility] [address], [place] Comprehensive Metabolic Pane gigi 11-28-2020 Albumin [Mass/Vol] 3.3 g/dL Low 3.5 - 5 g/dL [place], [place] ALP [Catalytic activity/Vol] 77 U/L 38 - 126 U/L [place] Comment on above: Slightly hemolysed, interpret with caution. ALT [Catalytic activity/Vol] 30 U/L 0 - 34 U/L [place], [place] Comment on above: The ALT test is perf ormed by an updated assay method. Please note that the reference intervals have been changed and are now sex specific. Anion gap [Moles/Vol] 5 mmol/L [place], [place] AST [Catalytic activity/Vol] 26 U/L 15 - 46 U/L [place], [place] Comment on above: Slightly hemolysed, interpret with caution. Bilirubin Ql (U) 0.6 mg/dL 0.2 - 1.3 mg/dL [place], [place] Calcium [Mass/Vol] 8.7 mg/dL 8.4 - 10. 4 mg/dL [place], [place] Chloride [Moles/Vol] 105 mmol/L 98 - 10 7 mmol/L [place] CO2 [Moles/Vol] 25 mmol/L 22 - 30 mmol/L [place] Creatinine [Mass/Vol] 0.66 mg/dL 0.52 - 1.25 mg/dL [place], [place] EGFR IF NonAfrican [place] >90.0 >60 mL/min [place], [place] Comment on above: KDIGO guidelines pro [...] MDRD (S/P/Bld) [Vol rate/Area] mL/min/{1.73_m2} >60 mL/min [place], [place] Glucose [Mass/Vol] 100 mg/dL 70 - 100 mg/dL [place] Interpretation and review of laboratory results Abnormal [place] Potassium [Moles/Vol] 4.3 mmol/L 3.5 - 5.1 mmol/L [place] Comment on above: Slightly hemolysed, interpret with caution. Protein [Mass/Vol] 6.0 g/dL Low 6.3 - 8.2 g/dL [place], [place] Sodium [Moles/Vol] 134 mmol/L Low 135 - 145 mmol/L [place] Urea nitrogen [Mass/Vol] 10 mg/dL 7 - 20 mg/dL [place] Test Performed by [facility], [address] [place] [address] [place], [place] Glucose,Bedsideon 11-28-2020 Glucose [Mass/Vol] 111 mg/dL High 70-100 [facility] Comment on above: Result Comment: Test performed by glucose meter. Results may be 10%-15% lower than serum/plasma values. (CLIA ID [id number]) Performed By: #### B GLU #### [facility] [address] [place] [address] Glucose [Mass/Vol] 166 mg/dL High 70-100 [facility] Comment on above: Result Comment: Test performed by glucose meter. Results may be 10%-15% lower than serum/plasma values. (CLIA ID [id number]) Performed By: #### B GLU #### [facility] [address] [place] [address] Glucose [Mass/Vol] 215 mg/dL High 70-100 [facility] Comment on above: Result Comment: Test performed by glucose meter. Results may be 10%-15% lower than serum/plasma values. (CLIA ID [id number]) Performed By: #### B GLU #### [facility] [address] [place] [address] POCT Glucoseon 11-28-2020 Glucose [Mass/Vol] 111 mg/dL High 70 - 100 mg/dL [place], [place] Comment on above: Test performed by gl ucose meter. Results may be 10%-15% lower than serum/plasma values. (CLIA ID [id number]) Interpretation and review of laboratory results Abnormal [place], [place] Test Performed by [facility], [address] [place] [address] [place], [place] Glucose [Mass/Vol] 166 mg/dL High 70 - 100 mg/dL [place] Comment on above: Test performed by gl ucose meter. Results may be 10%-15% lower than serum/plasma values. (CLIA ID [id number]) Interpretation and review of laboratory results Abnormal [facility] MARYAM Test Performed by [facility], [address] [place] [address] [place], [place] Glucose [Mass/Vol] 215 mg/dL High 70 - 100 mg/dL [place] Comment on above: Test performed by gl ucose meter. Results may be 10%-15% lower than serum/plasma values. (CLIA ID [id number]) Interpretation and review of laboratory results Abnormal [facility] Test Performed by [facility], [address] [place] [address] [place], [place] Surgical Pathologyon 021 Sodium [Moles/Vol] SEE BELOW [facility] MARY[facility] 1 [id number] [facility] PATHOLOGY AND LABORATORY MEDICINE [address] [place] [address] FINAL SURGICAL PATHOLOGY REPORT NAME: WILL JACINTO : 1965 55 Y F BILLING NO.: [id number] LOCATION: [address] [place] [address] PROCEDURE 11/26/2020 DATE: SURGEON: VIRGIL MARSHALL M.D. [...] residual atypical hyperplasia. Follow-up and rebiopsy recommended. [place] Signature> ALLEN JERRY M.D. CLINICAL INFORMATION: Not [...] characteristics determined by the clinical laboratories of [facility]. They have not been cleared by [...] negativity on decalcified specimens. Professional Performing Location: [address] [address]. DEPARTMENT OF PATHOLOGY AND LABORATORY MEDICINE [place], [place] [address] [place], [place] XR ABDOMEN (KUB) (SINGLE AP VIEW)on 11-28-2020 [facility] Incoming Radiology Results From [facility] - 11/28/2020 9:26 AM EST Patient Name: WILL JACINTO Diagnostic Radiology ACCESSION EXAM DATE/TIME PROCEDURE ORDERING PROVIDER [id number] 11/28/2020 09:00 EST CR Abdomen AP MD MARTIN KHALED CPT code 51412 Reason For Exam (CR Abdomen AP) ileus [...] RISA Transcribed Date and Time: 11/28/2020 9:25 [place], [place] Patient Name: WILL JACINTO Diagnostic Radiology ACCESSION EXAM DATE/TIME PROCEDURE ORDERING PROVIDER [id number] 11/28/2020 09:00 EST CR Abdomen AP MD MARTIN KHALED CPT code 01261 Reason For Exam (CR Abdomen AP) ileus [...] RISA Transcribed Date and Time: 11/28/2020 9:25 [facility], [place] CR Abdomen APon 11-27-2020 CR Abdomen AP Patient Name: WILL ALVARADO Diagnostic Radiology ACCESSION EXAM DATE/TIME PROCEDURE ORDERING PROVIDER [id number] 11/27/2020 08:28 EST CR Abdomen AP MD JD, CHAU CPT code 05125 Reason For Exam (CR Abdomen AP) ileus [...] Transcribed Date and Time: 11/27/2020 8:38 Normal [facility] Comp Metabolic Panelon 11-27 ALP [Catalytic activity/Vol] 97 U/L Normal 38-126 [facility] Comment on above: Performed By: #### C MP3 #### [facility] [address], [place] ALT [Catalytic activity/Vol] 34 U/L Normal 0-34 [facility] Comment on above: Result Comment: The ALT test is performed by an updated assay method. Please note that the reference intervals have been changed and are now sex specific. Performed By: #### C MP3 #### [facility] [address], [place] Anion gap [Moles/Vol] 6 Normal [facility] Comment on above: Performed By: #### C MP3 #### [facility] [address], [place] AST [Catalytic activity/Vol] 26 U/L Normal 15-46 [facility] Comment on above: Performed By: #### C MP3 #### [facility] [address] [facility], [place] Bilirubin [Mass/Vol] 0.6 mg/dL Normal 0.2-1.3 [facility] Comment on above: Performed By: #### C MP3 #### [facility] [address] [facility], [place] Calcium [Mass/Vol] 8.2 mg/dL Low 8.4-10.4 [facility] Comment on above: Performed By: #### C MP3 #### [facility] [address] [facility], [place] CO2 [Moles/Vol] 21 mmol/L Low 22-30 [facility] Comment on above: Performed By: #### C MP3 #### [facility] [address], [place] Glucose [Mass/Vol] 225 mg/dL High 70-100 [facility] Comment on above: Performed By: #### C MP3 #### [facility] [address] [facility], [place] Protein [Mass/Vol] 6.1 g/dL Low 6.3-8.2 [facility] Comment on above: Performed By: #### C MP3 #### [facility] [address], [place] Urea nitrogen [Mass/Vol] 13 mg/dL Normal 7-20 [facility] Comment on above: Performed By: #### C MP3 #### [facility] [address] [facility], [place] Creatinine [Mass/Vol] 0.57 mg/dL Normal 0.52-1.25 [facility] Comment on above: Performed By: #### C MP3 #### [facility] [address] [facility], [place] GFR/1.73 sq M predicted among blacks MDRD (S/P/Bld) [Vol rate/Area] mL/min/{1.73_m2} Normal >60 [facility] Comment on above: Performed By: #### C MP3 #### [address] [address] GFR/1.73 sq M predicted among non-blacks MDRD (S/P/Bld) [Vol rate/Area] mL/min/{1.73_m2} Normal >60 [facility] Comment on above: Result Comment: KDIG [...] secretion. Performed By: #### C MP3 #### [address] [address] [address] [place], [place] Albumin [Mass/Vol] 3.3 g/dL Low 3.5-5.0 [facility] Comment on above: Performed By: #### C MP3 #### [address] [address] Chloride [Moles/Vol] 104 mmol/L Normal 98-107 [facility] Comment on above: Performed By: #### C MP3 #### [address] [address] Potassium [Moles/Vol] 4.2 mmol/L Normal 3.5-5.1 [facility] Comment on above: Performed By: #### C MP3 #### [address] [address] Sodium [Moles/Vol] 132 mmol/L Low 135-145 [facility] Comment on above: Performed By: #### C MP3 #### [address] [address] Comprehensive Metabolic Pane gigi 11-27-2020 Albumin [Mass/Vol] 3.3 g/dL Low 3.5 - 5 g/dL [place] ALP [Catalytic activity/Vol] 97 U/L 38 - 126 U/L [place] ALT [Catalytic activity/Vol] 34 U/L 0 - 34 U/L [place] Comment on above: The ALT test is perf ormed by an updated assay method. Please note that the reference intervals have been changed and are now sex specific. Anion gap [Moles/Vol] 6 mmol/L [place], [place] AST [Catalytic activity/Vol] 26 U/L 15 - 46 U/L [place] Bilirubin Ql (U) 0.6 mg/dL 0.2 - 1.3 mg/dL [place], [place] Calcium [Mass/Vol] 8.2 mg/dL Low 8.4 - 10. 4 mg/dL [place] Chloride [Moles/Vol] 104 mmol/L 98 - 10 7 mmol/L [place] CO2 [Moles/Vol] 21 mmol/L Low 22 - 30 mmol/L [place] Creatinine [Mass/Vol] 0.57 mg/dL 0.52 - 1.25 mg/dL [place], [place] EGFR IF NonAfrican [place] >90.0 >60 mL/min [place], [place] Comment on above: KDIGO guidelines pro [...] MDRD (S/P/Bld) [Vol rate/Area] mL/min/{1.73_m2} >60 mL/min [facility], [place] Glucose [Mass/Vol] 225 mg/dL High 70 - 100 mg/dL [facility], [place] Interpretation and review of laboratory results Abnormal [place], [place] Potassium [Moles/Vol] 4.2 mmol/L 3.5 - 5.1 mmol/L [facility], [place] Protein [Mass/Vol] 6.1 g/dL Low 6.3 - 8.2 g/dL [place], [place] Sodium [Moles/Vol] 132 mmol/L Low 135 - 145 mmol/L [facility], [place] Urea nitrogen [Mass/Vol] 13 mg/dL 7 - 20 mg/dL [place], [place] Test Performed by [facility], [address] [place] [id number] [place] [address] EKG 12 Leadon 11-27-2020 [facility] Incoming Cardiology Results From [facility] - 11/27/2020 10:03 AM EST [facility] Test Date: 2020-11-26 Pat Name: Will Jacinto Department: 1A7E Room: 1714 Gender: F 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: SARAN : 1965 Requested By: GABO ESTRADA Order Number: [id number] Reading MD: Jelena Davidson Measurements Intervals [place] Rate: 85 P: 38 [place]: 159 QRS: -39 QRSD: 105 T: 29 QT: 382 QTc: 455 Interpretive Statements Sinus rhythm Left ventricular hypertrophy Anterior Q waves, possibly due to LVH Electronically Signed On 11-27-2020 10:02:38 EST by Jelena [facility] MARYAM [facility] Test Date: 2020-11-26 Pat Name: Will Jacinto Department: 1A7E Room: [facility] Gender: F 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: SARAN : 1965 Requested By: GABO ESTRADA Order Number: [id number] Reading SHARRON Davidson Measurements Intervals [place] Rate: 85 P: 38 [place]: 159 QRS: -39 QRSD: 105 T: 29 QT: 382 QTc: 455 Interpretive Statements Sinus rhythm Left ventricular hypertrophy Anterior Q waves, possibly due to LVH Electronically Signed On 11-27-2020 10:02:38 EST by Jelena Davidson [facility], [place] Glucose, Bedsideon 1 Confirmation see below Normal [facility] Comment on above: Result Comment: No c onfirmation received. Performed By: #### B GLU #### [facility] [address] [place] [address] Glucose [Mass/Vol] mg/dL High 70-100 [facility] Comment on above: Result Comment: Test performed by glucose meter. Results may be 10%-15% lower than serum/plasma values. (CLIA ID [id number]) Performed By: #### B GLU #### [facility] [address] [place] [address] Glucose,Bedsideon 11-27-2020 Glucose [Mass/Vol] 91 mg/dL Normal 70-[address] [facility] Comment on above: Result Comment: Test performed by glucose meter. Results may be 10%-15% lower than serum/plasma values. (CLIA ID [id number]) Performed By: #### B GLU #### [facility] [address] [place] [address] Glucose [Mass/Vol] 134 mg/dL High 70-[address] [facility] Comment on above: Result Comment: Test performed by glucose meter. Results may be 10%-15% lower than serum/plasma values. (CLIA ID [id number]) Performed By: #### B GLU #### [facility] [address] [place] [address] Glucose [Mass/Vol] 205 mg/dL High 70-[address] [facility] Comment on above: Result Comment: Test performed by glucose meter. Results may be 10%-15% lower than serum/plasma values. (CLIA ID [id number]) Performed By: #### B GLU #### [facility] [address] [place] [address] Glucose [Mass/Vol] 223 mg/dL High 70-100 [facility] Comment on above: Result Comment: Test performed by glucose meter. Results may be 10%-15% lower than serum/plasma values. (CLIA ID [id number]) Performed By: #### B GLU #### [address] [address] [place] [address] POC Glucose, Whole Bloodon 0 11-27-2020 Glucose [Mass/Vol] mg/dL High 70 - 100 mg/dL [place] Comment on above: Test performed by gl ucose meter. Results may be 10%-15% lower than serum/plasma values. (CLIA ID [id number]) Interpretation and review of laboratory results Abnormal [place] Sodium [Moles/Vol] see below [place], [place] Comment on above: No confirmation rece ived. Test Performed by [facility], [facility] [place] [address] [place], [place] POCT Glucoseon 11-27-2020 Glucose [Mass/Vol] 91 mg/dL 70 - 100 mg/dL [place] Comment on above: Test performed by gl ucose meter. Results may be 10%-15% lower than serum/plasma values. (CLIA ID [id number]) Test Performed by [facility], [facility] [place] [address] [place], [place] Glucose [Mass/Vol] 134 mg/dL High 70 - 100 mg/dL [place] Comment on above: Test performed by gl ucose meter. Results may be 10%-15% lower than serum/plasma values. (CLIA ID [id number]) Interpretation and review of laboratory results Abnormal [place] Test Performed by [facility], [facility] [place] [address] [place], [place] Glucose [Mass/Vol] 205 mg/dL High 70 - 100 mg/dL [place] Comment on above: Test performed by gl ucose meter. Results may be 10%-15% lower than serum/plasma values. (CLIA ID [id number]) Interpretation and review of laboratory results Abnormal [facility] [place] [place] Test Performed by [place] [address] [place] [address] [place], [place] Glucose [Mass/Vol] 223 mg/dL High 70 - 100 mg/dL [place], [place] Comment on above: Test performed by gl ucose meter. Results may be 10%-15% lower than serum/plasma values. (CLIA ID [id number]) Interpretation and review of laboratory results Abnormal [place] Test Performed by [facility], [facility] [place] [address] [place] XR ABDOMEN (KUB) (SINGLE AP VIEW)on 11-27-2020 Patient Name: WILL ALVARADO Diagnostic Radiology ACCESSION EXAM DATE/TIME PROCEDURE ORDERING PROVIDER [id number] 11/27/2020 08:28 EST CR Abdomen AP MD MARTIN KHALED CPT code 48400 Reason For Exam (CR Abdomen AP) ileus [...] JASON Transcribed Date and Time: 11/27/2020 8:38 [place], [place] Nati Jones Incoming Radiology Results From [facility] - 11/27/2020 8:41 AM EST Patient Name: WILL JACINTO Diagnostic Radiology ACCESSION EXAM DATE/TIME PROCEDURE ORDERING PROVIDER [id number] 11/27/2020 08:28 EST CR Abdomen AP MD MARTIN KHALED CPT code 08137 Reason For Exam (CR Abdomen AP) ileus [...] JASON Transcribed Date and Time: 11/27/2020 8:38 [facility] Metabolic Panelon 11-26 ALP [Catalytic activity/Vol] 88 U/L Normal 38-126 [facility] Comment on above: Performed By: #### B GLU #### [facility] [address] [place] [address] ALT [Catalytic activity/Vol] 33 U/L Normal 0-34 [facility] Comment on above: Result Comment: The ALT test is performed by an updated assay method. Please note that the reference intervals have been changed and are now sex specific. Performed By: #### B GLU #### [facility] [address] [place] [address] Calcium [Mass/Vol] 8.9 mg/dL Normal 8.4-10.4 [facility] Comment on above: Performed By: #### B GLU #### [facility] [address] [place] [address] Glucose [Mass/Vol] 188 mg/dL High 70-100 [facility] Comment on above: Performed By: #### B GLU #### [facility] [address] [place] [address] Urea nitrogen [Mass/Vol] 10 mg/dL Normal 7-20 [facility] Comment on above: Performed By: #### B GLU #### [facility] [address], [place] Anion gap [Moles/Vol] 7 Normal [facility] Comment on above: Performed By: #### B GLU #### [facility] [address], [place] AST [Catalytic activity/Vol] 29 U/L Normal 15-46 [facility] Comment on above: Performed By: #### B GLU #### [facility] [address], [place] Bilirubin [Mass/Vol] 0.5 mg/dL Normal 0.2-1.3 [facility] Comment on above: Performed By: #### B GLU #### [facility] [address], [place] CO2 [Moles/Vol] 25 mmol/L Normal 22-30 [facility] Comment on above: Performed By: #### B GLU #### [address] [address] [place], [place] Creatinine [Mass/Vol] 0.63 mg/dL Normal 0.52-1.25 [facility] Comment on above: Performed By: #### B GLU #### [facility] [address], [place] GFR/1.73 sq M predicted among blacks MDRD (S/P/Bld) [Vol rate/Area] mL/min/{1.73_m2} Normal >60 [facility] Comment on above: Performed By: #### B GLU #### [facility] [address], [place] GFR/1.73 sq M predicted among non-blacks MDRD (S/P/Bld) [Vol rate/Area] mL/min/{1.73_m2} Normal >60 [facility] Comment on above: Result Comment: KDIG [...] secretion. Performed By: #### B GLU #### [facility] [address], [place] Protein [Mass/Vol] 6.2 g/dL Low 6.3-8.2 [facility] Comment on above: Performed By: #### B GLU #### [address] [address] [place], [place] Albumin [Mass/Vol] 3.4 g/dL Low 3.5-5.0 [facility] Comment on above: Performed By: #### B GLU #### [address] [address] [place], [place] Chloride [Moles/Vol] 98 mmol/L Normal 98-107 [facility] Comment on above: Performed By: #### B GLU #### [place] [address] [place], [place] Potassium [Moles/Vol] 3.9 mmol/L Normal 3.5-5.1 [facility] Comment on above: Performed By: #### B GLU #### [address] [address] [place], [place] Sodium [Moles/Vol] 130 mmol/L Low 135-145 [facility] Comment on above: Performed By: #### B GLU #### [address] [address] [place], [place] Comprehensive Metabolic Pane gigi 11-26-2020 Albumin [Mass/Vol] 3.4 g/dL Low 3.5 - 5 g/dL [place] ALP [Catalytic activity/Vol] 88 U/L 38 - 126 U/L [place] ALT [Catalytic activity/Vol] 33 U/L 0 - 34 U/L [place] Comment on above: The ALT test is perf ormed by an updated assay method. Please note that the reference intervals have been changed and are now sex specific. Anion gap [Moles/Vol] 7 mmol/L [place], [place] AST [Catalytic activity/Vol] 29 U/L 15 - 46 U/L [place] Bilirubin Ql (U) 0.5 mg/dL 0.2 - 1.3 mg/dL [place] Calcium [Mass/Vol] 8.9 mg/dL 8.4 - 10. 4 mg/dL [place] Chloride [Moles/Vol] 98 mmol/L 98 - 10 7 mmol/L [place] CO2 [Moles/Vol] 25 mmol/L 22 - 30 mmol/L [place] Creatinine [Mass/Vol] 0.63 mg/dL 0.52 - 1.25 mg/dL [place], [place] EGFR IF NonAfrican [place] >90.0 >60 mL/min [place] Comment on above: KDIGO guidelines pro [...] MDRD (S/P/Bld) [Vol rate/Area] mL/min/{1.73_m2} >60 mL/min [place] Glucose [Mass/Vol] 188 mg/dL High 70 - 100 mg/dL [place] Interpretation and review of laboratory results Abnormal [place] Potassium [Moles/Vol] 3.9 mmol/L 3.5 - 5.1 mmol/L [place] Protein [Mass/Vol] 6.2 g/dL Low 6.3 - 8.2 g/dL [place] Sodium [Moles/Vol] 130 mmol/L Low 135 - 145 mmol/L [place] Urea nitrogen [Mass/Vol] 10 mg/dL 7 - 20 mg/dL [place] Test Performed by [facility], [address] [place] [address] [place], [place] Glucose,Bedsideon 11-26-2020 Glucose [Mass/Vol] 254 mg/dL High 70-100 [facility] Comment on above: Result Comment: Test performed by glucose meter. Results may be 10%-15% lower than serum/plasma values. (CLIA ID [id number]) Performed By: #### B GLU #### [address] [address] [place] [address] Glucose [Mass/Vol] 383 mg/dL High 70-100 [facility] Comment on above: Result Comment: Test performed by glucose meter. Results may be 10%-15% lower than serum/plasma values. (CLIA ID [id number]) Performed By: #### B GLU #### [address] [place] [address] Glucose [Mass/Vol] 206 mg/dL High 70-[address] [place] [address] Comment on above: Result Comment: Test performed by glucose meter. Results may be 10%-15% lower than serum/plasma values. (CLIA ID [id number]) Performed By: #### B GLU #### [address] [place] [address] Glucose [Mass/Vol] 169 mg/dL High 70-100 [facility] Comment on above: Result Comment: Test performed by glucose meter. Results may be 10%-15% lower than serum/plasma values. (CLIA ID [id number]) Performed By: #### B GLU #### [address] [address] [place] [address] Glucose [Mass/Vol] 168 mg/dL High 70-100 [facility] Comment on above: Result Comment: Test performed by glucose meter. Results may be 10%-15% lower than serum/plasma values. 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 Two dikubm-ia-cjsku stitches were used to obtain hemostasis with [...] devices during the surgery. [employer] Job ID: [id number] Virgil Marshall MD DOD:11/26/2020 10:39 A RLK/dsk DOT:11/26/2020 11: (more content not included)... Normal [facility] Otheron 11-26-2020 Test Performed by [facility], [address] [place] [address] [facility] POCT Glucoseon 11-26-2020 Glucose [Mass/Vol] 254 mg/dL High 70 - 100 mg/dL [facility] [place] Comment on above: Test performed by gl ucose meter. Results may be 10%-15% lower than serum/plasma values. (CLIA ID [id number]) Interpretation and review of laboratory results Abnormal [facility] [place] Glucose [Mass/Vol] 383 mg/dL High 70 - 100 mg/dL [facility] [place] Comment on above: Test performed by gl ucose meter. Results may be 10%-15% lower than serum/plasma values. (CLIA ID [id number]) Interpretation and review of laboratory results Abnormal [facility] [place] Test Performed by [employer] [facility], [facility] [address] [facility] [place] [address] [facility] Glucose [Mass/Vol] 206 mg/dL High 70 - 100 mg/dL [facility] [place] Comment on above: Test performed by gl ucose meter. Results may be 10%-15% lower than serum/plasma values. (CLIA ID [id number]) Interpretation and review of laboratory results Abnormal [facility] Test Performed by [employer] [facility], [address] [place] [address] [facility] Glucose [Mass/Vol] 169 mg/dL High 70 - 100 mg/dL [facility] [place] Comment on above: Test performed by gl ucose meter. Results may be 10%-15% lower than serum/plasma values. (CLIA ID [id number]) Interpretation and review of laboratory results Abnormal [facility] [place] Test Performed by [facility], [address] [place] [address] [place], [place] Surgical Pathologyon 021 Surgical Pathology [id number] [facility] PATHOLOGY AND LABORATORY MEDICINE [address] [place] [address] FINAL SURGICAL PATHOLOGY REPORT NAME: TABALEX WILL M : 1965 55 [facility] [id number] LOCATION: [facility] 171[facility] PROCEDURE 11/26/2020 DATE: SURGEON: VIRGIL MARSHALL M.D. [...] residual atypical hyperplasia. Follow-up and rebiopsy recommended. [place] Signature> ALLEN JERRY M.D. CLINICAL INFORMATION: Not [...] characteristics determined by the clinical laboratories of [facility]. They have not been cleared by [...] negativity on decalcified specimens. Professional Performing Location: [place] [address] [address] [place] [address]. DEPARTMENT OF PATHOLOGY AND LABORATORY MEDICINE [place], [place] [address] Normal [facility] TSH without Reflexon 021 TSH Qn 2.356 u[IU]/mL 0.465 - 4.68 u[IU]/mL [place], [place] Test Performed by [facility], [facility] [place], [place] [id number] [place] [address] Thyroid Stim. Hormoneon 11-08 Thyroid Stim. Hormone 2.356 u[IU]/mL Normal 0.465-4.68 0 [facility] Comment on above: Performed By: #### B GLU #### [facility] [address] [place] [address] Troponin Ion 11-26-2020 Troponin I.cardiac [Mass/Vol] ng/mL Normal 0.000-0.034 [place], [place] Comment on above: . Result Comment: . Performed By: #### T CHERELLEN #### [address] [place] [address] CBC Auto Differentialon 11-08 Absolute Baso # 0.1 10*3/uL 0 - 0.2 10*3/uL [place], [place] Absolute Neut # 4.9 10*3/uL 1.8 - 7 10*3/uL [place], [place] Basophils/100 WBC (Bld) 0.9 % 0 - 2 % [place], [place] Eosinophils (Bld) [#/Vol] 0.1 10*3/uL 0 - 0.5 10*3/uL [place], [place] Eosinophils/100 WBC (Bld) 1.8 % 1 - 6 % [place] Erythrocyte distribution width (RBC) [Ratio] 16.1 % High 11.5 - 14.5 % [place], [place] Granulocytes/100 WBC (Bld) 64.4 % 40 - 80 % [place], [place] Hematocrit (Bld) [Volume fraction] 29.4 % Low 35 - 47 % [place], [place] Hemoglobin (Bld) [Mass/Vol] 10.0 g/dL Low 11.7 - 16 g/dL [place] Interpretation and review of laboratory results Abnormal [place], [place] Lymphocytes (Bld) [#/Vol] 2.0 10*3/uL 1 - 4.3 10*3/uL [place], [place] Lymphocytes/100 WBC (Bld) 25.7 % 20 - 40 % [place] MCH (RBC) [Entitic mass] 29.8 pg 26 - 34 pg [place], [place] MCHC (RBC) [Mass/Vol] 33.9 % 32 - 36 % [place] MCV (RBC) [Entitic vol] 87.7 fL 79 - 98 fL [place], [place] Monocytes (Bld) [#/Vol] 0.5 10*3/uL 0 - 0.8 10*3/uL [place], [place] Monocytes/100 WBC (Bld) 7.2 % 2 - 10 % [place] Platelet mean volume (Bld) [Entitic vol] 7.6 fL 7.4 - 10.4 fL [place], [place] Platelets (Bld) [#/Vol] 352 10*3/uL 140 - 440 10*3/uL [place], [place] RBC (Bld) [#/Vol] 3.35 10*6/uL Low 3.8 - 5.2 10*6/uL [place] WBC (Bld) [#/Vol] 7.6 10*3/uL 3.6 - 10.7 10*3/uL [place] Test Performed by [facility], [address], [place], [place] [address] [place], [place] Comprehensive Metabolic Pane gigi 11-25-2020 Albumin [Mass/Vol] 3.1 g/dL Low 3.5 - 5 g/dL [place] ALP [Catalytic activity/Vol] 83 U/L 38 - 126 U/L [place] ALT [Catalytic activity/Vol] 31 U/L 0 - 34 U/L [place] Comment on above: The ALT test is perf ormed by an updated assay method. Please note that the reference intervals have been changed and are now sex specific. Anion gap [Moles/Vol] 5 mmol/L [place] AST [Catalytic activity/Vol] 26 U/L 15 - 46 U/L [place] Bilirubin Ql (U) 0.4 mg/dL 0.2 - 1.3 mg/dL [place] Calcium [Mass/Vol] 8.4 mg/dL 8.4 - 10. 4 mg/dL [place] Chloride [Moles/Vol] 103 mmol/L 98 - 10 7 mmol/L [place] CO2 [Moles/Vol] 28 mmol/L 22 - 30 mmol/L [place] Creatinine [Mass/Vol] 0.76 mg/dL 0.52 - 1.25 mg/dL [place], [place] EGFR IF NonAfrican [place] 88.9 mL/min >60 [place] Comment on above: KDIGO guidelines pro [...] MDRD (S/P/Bld) [Vol rate/Area] mL/min/{1.73_m2} >60 mL/min [place], [place] Glucose [Mass/Vol] 107 mg/dL High 70 - 100 mg/dL [place] Interpretation and review of laboratory results Abnormal [place], [place] Potassium [Moles/Vol] 3.8 mmol/L 3.5 - 5.1 mmol/L [facility] [place], [place] Protein [Mass/Vol] 5.8 g/dL Low 6.3 - 8.2 g/dL [place], [place] Sodium [Moles/Vol] 136 mmol/L 135 - 145 mmol/L [place], [place] Urea nitrogen [Mass/Vol] 11 mg/dL 7 - 20 mg/dL [place] Test Performed by [facility], [address], [place], [place] [address] [facility] [place] EKG 12 Leadon 11-25-2020 Robert [facility] Incoming Cardiology Results From [facility] - 11/25/2020 8:18 AM EST [facility] Test Date: 2020-11-24 Pat Name: Will IssaNarendracareyalex Department: [facility] Room: 158 Gender: F 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: : 1965 Requested By: KYLAH DAVID Order Number: [id number] Reading MD: Justin Ramirez Measurements Intervals [place] Rate: 75 P: 45 [place]: 160 QRS: -36 QRSD: 108 T: 18 QT: 392 QTc: 438 Interpretive Statements SINUS RHYTHM LATE PRECORDIAL R/S TRANSITION LEFT VENTRICULAR HYPERTROPHY LEFT ANTERIOR FASCICULAR BLOCK Compared to ECG 11/22/2020 18:01:34 Sinus tachycardia no longer present Electronically Signed On 11-25-2020 8:16:57 EST by Justin Ramirez [facility] Test Date: 2020-11-24 Pat Name: Will Jacinto Department: [facility] Room: 158 Gender: F 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: : 1965 Requested By: KYLAH DAVID Order Number: [id number] Reading MD: Justin Ramirez Measurements Intervals [place] Rate: 75 P: 45 [place]: 160 QRS: -36 QRSD: 108 T: 18 QT: 392 QTc: 438 Interpretive Statements SINUS RHYTHM LATE PRECORDIAL R/S TRANSITION LEFT VENTRICULAR HYPERTROPHY LEFT ANTERIOR FASCICULAR BLOCK Compared to ECG 11/22/2020 18:01:34 Sinus tachycardia no longer present Electronically Signed On 11-25-2020 8:16:57 EST by Justin aRmirez [place], [place] POC Glucose, Whole Bloodon 0 11-25-2020 Glucose [Mass/Vol] mg/dL High 70 - 100 mg/dL [place] Comment on above: Test performed by [employer] ([employer]) ucose meter. Results may be 10%-15% lower than serum/plasma values. (CLIA ID [id number]) Interpretation and review of laboratory results Abnormal [facility] [employer] [place] Sodium [Moles/Vol] see below [facility] [place] Comment on above: No confirmation rece ived. Test Performed by [facility], [address], [place], [place] [address] [facility] [place] POCT Glucoseon 11-25-2020 Glucose [Mass/Vol] 168 mg/dL High 70 - 100 mg/dL [place] Comment on above: Test performed by [employer]FIG) ucose meter. Results may be 10%-15% lower than serum/plasma values. (CLIA ID [id number]) Interpretation and review of laboratory results Abnormal [facility] [place] Test Performed by [employer] [facility], [address] [place] [address] [facility] [place] Glucose [Mass/Vol] 248 mg/dL High 70 - 100 mg/dL [facility] [place] Comment on above: Test performed by gl ucose meter. Results may be 10%-15% lower than serum/plasma values. (CLIA ID [id number]) Interpretation and review of laboratory results Abnormal [facility] [place] Test Performed by [employer] [facility], [address], [place], [place] [address] [facility] [place] Glucose [Mass/Vol] 202 mg/dL High 70 - 100 mg/dL [facility] [place] Comment on above: Test performed by gl ucose meter. Results may be 10%-15% lower than serum/plasma values. (CLIA ID [id number]) Interpretation and review of laboratory results Abnormal [facility] Test Performed by [employer], [address], [place], [place] [address] [facility] Glucose [Mass/Vol] 121 mg/dL High 70 - 100 mg/dL [facility] [place] Comment on above: Test performed by gl ucose meter. Results may be 10%-15% lower than serum/plasma values. (CLIA ID [id number]) Interpretation and review of laboratory results Abnormal [facility] Test Performed by [employer], [address], [place], [place] [address] [facility] Troponinon 11-25-2020 Troponin I.cardiac [Mass/Vol] ng/mL 0 - 0.034 ng/mL [facility] [place] Comment on above: . Test Performed by [employer], [address], [place], [place] [address] [facility] US NON OB TRANSVAGINALon [facility] - 11/25/2020 10:46 AM EST Patient Name: WILL JACINTO Ultrasound ACCESSION EXAM DATE/TIME PROCEDURE ORDERING PROVIDER [id number] 11/25/2020 10:38 EST US Transvaginal MD DANIELS DIANA CHRISTINE CPT code 46018 Reason For Exam (US Transvaginal) AUB Report [...] NICHOLAS Transcribed Date and Time: 11/25/2020 10:46 [place], [place] Patient Name: [id number] Ultrasound ACCESSION EXAM DATE/TIME PROCEDURE ORDERING PROVIDER [id number] 11/25/2020 10:38 EST US Transvaginal MD DANIELS DIANA CHRISTINE CPT code 47962 Reason For Exam (US Transvaginal) AUB Report [...] NICHOLAS Transcribed Date and Time: 11/25/2020 10:46 [place], [place] XR ABDOMEN (KUB) (SINGLE AP VIEW)on 11-25-2020 [facility] Incoming Radiology Results From [facility] - 11/25/2020 3:31 PM EST Patient Name: WILL JACINTO Diagnostic Radiology ACCESSION EXAM DATE/TIME PROCEDURE ORDERING PROVIDER [id number] 11/25/2020 15:08 EST CR Abdomen AP Lorenzo STAPLETON MICHAEL CPT code 47427 Reason For Exam (CR Abdomen AP) abd [...] NICHOLAS Transcribed Date and Time: 11/25/2020 3:31 [place] Patient Name: WILL JACINTO Diagnostic Radiology ACCESSION EXAM DATE/TIME PROCEDURE ORDERING PROVIDER [id number] 11/25/2020 15:08 EST CR Abdomen AP Lornezo STAPLETON MICHAEL CPT code 86158 Reason For Exam (CR Abdomen AP) abd [...] NICHOLAS Transcribed Date and Time: 11/25/2020 3:31 [place], [place] CBC Auto Differentialon 11-08 Absolute Baso # 0.0 10*3/uL 0 - 0.2 10*3/uL [place], [place] Absolute Neut # 5.4 10*3/uL 1.8 - 7 10*3/uL [place], [place] Basophils/100 WBC (Bld) 0.7 % 0 - 2 % [place] Eosinophils (Bld) [#/Vol] 0.1 10*3/uL 0 - 0.5 10*3/uL [place], [place] Eosinophils/100 WBC (Bld) 0.9 % Low 1 - 6 % [place] Erythrocyte distribution width (RBC) [Ratio] 16.3 % High 11.5 - 14.5 % [place], [place] Granulocytes/100 WBC (Bld) 77.5 % 40 - 80 % [place] Hematocrit (Bld) [Volume fraction] 32.6 % Low 35 - 47 % [place] Hemoglobin (Bld) [Mass/Vol] 11.0 g/dL Low 11.7 - 16 g/dL [place] Interpretation and review of laboratory results Abnormal [place] Lymphocytes (Bld) [#/Vol] 1.1 10*3/uL 1 - 4.3 10*3/uL [place], [place] Lymphocytes/100 WBC (Bld) 15.8 % Low 20 - 40 % [place] MCH (RBC) [Entitic mass] 29.4 pg 26 - 34 pg [place], [place] MCHC (RBC) [Mass/Vol] 33.7 % 32 - 36 % [place] MCV (RBC) [Entitic vol] 87.4 fL 79 - 98 fL [place], [place] Monocytes (Bld) [#/Vol] 0.4 10*3/uL 0 - 0.8 10*3/uL [place], [place] Monocytes/100 WBC (Bld) 5.1 % 2 - 10 % [place], [place] Platelet mean volume (Bld) [Entitic vol] 7.9 fL 7.4 - 10.4 fL [place], [place] Platelets (Bld) [#/Vol] 332 10*3/uL 140 - 440 10*3/uL [place] RBC (Bld) [#/Vol] 3.73 10*6/uL Low 3.8 - 5.2 10*6/uL [place], [place] WBC (Bld) [#/Vol] 6.9 10*3/uL 3.6 - 10.7 10*3/uL [place] Test Performed by [facility], [address], [place], [place] [address] [place], [place] Comprehensive Metabolic Pane gigi 11-24-2020 Albumin [Mass/Vol] 3.6 g/dL 3.5 - 5 g/dL [place] ALP [Catalytic activity/Vol] 110 U/L 38 - 126 U/L [place] ALT [Catalytic activity/Vol] 36 U/L High 0 - 34 U/L [place] Comment on above: The ALT test is perf ormed by an updated assay method. Please note that the reference intervals have been changed and are now sex specific. Anion gap [Moles/Vol] 7 mmol/L [place] AST [Catalytic activity/Vol] 31 U/L 15 - 46 U/L [place] Bilirubin Ql (U) 0.6 mg/dL 0.2 - 1.3 mg/dL [place] Calcium [Mass/Vol] 9.1 mg/dL 8.4 - 10. 4 mg/dL [place], [place] Chloride [Moles/Vol] 97 mmol/L Low 98 - 10 7 mmol/L [place] CO2 [Moles/Vol] 29 mmol/L 22 - 30 mmol/L [place] Creatinine [Mass/Vol] 0.74 mg/dL 0.52 - 1.25 mg/dL [place], [place] EGFR IF NonAfrican [place] >90.0 >60 mL/min [place], [place] Comment on above: KDIGO guidelines pro [...] MDRD (S/P/Bld) [Vol rate/Area] mL/min/{1.73_m2} >60 mL/min [place] Glucose [Mass/Vol] 304 mg/dL High 70 - 100 mg/dL [place] Interpretation and review of laboratory results Abnormal [place], [place] Potassium [Moles/Vol] 4.3 mmol/L 3.5 - 5.1 mmol/L [place], [place] Protein [Mass/Vol] 6.5 g/dL 6.3 - 8.2 g/dL [place], [place] Sodium [Moles/Vol] 133 mmol/L Low 135 - 145 mmol/L [place], [place] Urea nitrogen [Mass/Vol] 16 mg/dL 7 - 20 mg/dL [place], [place] Test Performed by [facility], [address], [place], [place] [address] [place] Albumin [Mass/Vol] 3.6 g/dL 3.5 - 5 g/dL [place] ALP [Catalytic activity/Vol] 115 U/L 38 - 126 U/L [place] ALT [Catalytic activity/Vol] 35 U/L High 0 - 34 U/L [place] Comment on above: The ALT test is perf ormed by an updated assay method. Please note that the reference intervals have been changed and are now sex specific. Anion gap [Moles/Vol] 6 mmol/L [place] AST [Catalytic activity/Vol] 25 U/L 15 - 46 U/L [place] Bilirubin Ql (U) 0.6 mg/dL 0.2 - 1.3 mg/dL [place] Calcium [Mass/Vol] 9.0 mg/dL 8.4 - 10. 4 mg/dL [place], [place] Chloride [Moles/Vol] 97 mmol/L Low 98 - 10 7 mmol/L [place] CO2 [Moles/Vol] 29 mmol/L 22 - 30 mmol/L [place] Creatinine [Mass/Vol] 0.78 mg/dL 0.52 - 1.25 mg/dL [place], [place] EGFR IF NonAfrican [place] 86.1 mL/min >60 [place], [place] Comment on above: KDIGO guidelines pro [...] MDRD (S/P/Bld) [Vol rate/Area] mL/min/{1.73_m2} >60 mL/min [place], [place] Glucose [Mass/Vol] 308 mg/dL High 70 - 100 mg/dL [place] Interpretation and review of laboratory results Abnormal [place], [place] Potassium [Moles/Vol] 4.8 mmol/L 3.5 - 5.1 mmol/L [place], [place] Protein [Mass/Vol] 6.6 g/dL 6.3 - 8.2 g/dL [place], [place] Sodium [Moles/Vol] 132 mmol/L Low 135 - 145 mmol/L [place], [place] Urea nitrogen [Mass/Vol] 18 mg/dL 7 - 20 mg/dL [place] Test Performed by [facility], [address] [place] [address] EKG 12 Leadon 11-24-2020 [facility] Incoming Cardiology Results From [facility]/Jeanne - 11/24/2020 6:48 PM EST [facility] Test Date: 2020-11-22 Pat Name: Will Jacinto Department: Room: 158 Gender: F 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 Results may be 10%-15% lower than serum/plasma values. (CLIA ID [id number]) Interpretation and review of laboratory results Abnormal [employer] [employer] Test Performed by [employer], [address] [place], [place] [address] [facility] Glucose [Mass/Vol] 235 mg/dL High 70 - 100 mg/dL [facility] Comment on above: Test performed by gl ucose meter. Results may be 10%-15% lower than serum/plasma values. (CLIA ID [id number]) Interpretation and review of laboratory results Abnormal [employer] [employer] Test Performed by [employer], [address], [place], [place] [address] [employer] Glucose [Mass/Vol] 298 mg/dL High 70 - 100 mg/dL [facility] Comment on above: Test performed by gl ucose meter. Results may be 10%-15% lower than serum/plasma values. (CLIA ID [id number]) Interpretation and review of laboratory results Abnormal [facility] Test Performed by [employer], [address], [place], [place] [address] [employer] [employer] Glucose [Mass/Vol] 358 mg/dL High 70 - 100 mg/dL [place], [place] Comment on above: Test performed by ucose meter. Results may be 10%-15% lower than serum/plasma values. (CLIA ID [id number]) Interpretation and review of laboratory results Abnormal [place] Test Performed by [facility], [address], [place], [place] [address] [place] Troponinon 11-24-2020 Troponin I.cardiac [Mass/Vol] ng/mL 0 - 0.034 ng/mL [place], [place] Comment on above: . Test Performed by [facility], [address], [place], [place] [address] [place] Troponin I.cardiac [Mass/Vol] ng/mL 0 - 0.034 ng/mL [place], [place] Comment on above: . Test Performed by [facility], [address], [place], [place] [address] [place], [place] CBC Auto Differentialon 11-08 Absolute Baso # 0.0 10*3/uL 0 - 0.2 10*3/uL [place], [place] Absolute Neut # 7.6 10*3/uL High 1.8 - 7 10*3/uL [place], [place] Basophils/100 WBC (Bld) 0.3 % 0 - 2 % [place] Eosinophils (Bld) [#/Vol] 0.0 10*3/uL 0 - 0.5 10*3/uL [place] Eosinophils/100 WBC (Bld) 0.1 % Low 1 - 6 % [place] Erythrocyte distribution width (RBC) [Ratio] 16.3 % High 11.5 - 14.5 % [place] Granulocytes/100 WBC (Bld) 85.6 % High 40 - 80 % [place] Hematocrit (Bld) [Volume fraction] 33.4 % Low 35 - 47 % [place] Hemoglobin (Bld) [Mass/Vol] 11.2 g/dL Low 11.7 - 16 g/dL [place] Interpretation and review of laboratory results Abnormal [place] Lymphocytes (Bld) [#/Vol] 0.7 10*3/uL Low 1 - 4.3 10*3/uL [place] Lymphocytes/100 WBC (Bld) 7.9 % Low 20 - 40 % [place] MCH (RBC) [Entitic mass] 29.5 pg 26 - 34 pg [place] MCHC (RBC) [Mass/Vol] 33.5 % 32 - 36 % [place] MCV (RBC) [Entitic vol] 88.0 fL 79 - 98 fL [place], [place] Monocytes (Bld) [#/Vol] 0.5 10*3/uL 0 - 0.8 10*3/uL [place], [place] Monocytes/100 WBC (Bld) 6.1 % 2 - 10 % [place] Platelet mean volume (Bld) [Entitic vol] 8.0 fL 7.4 - 10.4 fL [place] Platelets (Bld) [#/Vol] 343 10*3/uL 140 - 440 10*3/uL [place] RBC (Bld) [#/Vol] 3.80 10*6/uL 3.8 - 5.2 10*6/uL [place] WBC (Bld) [#/Vol] 8.9 10*3/uL 3.6 - 10.7 10*3/uL [place] Test Performed by [facility], [address], [place], [place] [address] [place] Comprehensive Metabolic Pane gigi 11-23-2020 Albumin [Mass/Vol] 3.9 g/dL 3.5 - 5 g/dL [place] ALP [Catalytic activity/Vol] 136 U/L High 38 - 126 U/L [place] ALT [Catalytic activity/Vol] 42 U/L High 0 - 34 U/L [place] Comment on above: The ALT test is perf ormed by an updated assay method. Please note that the reference intervals have been changed and are now sex specific. Anion gap [Moles/Vol] 11 mmol/L [place] AST [Catalytic activity/Vol] 31 U/L 15 - 46 U/L [place] Bilirubin Ql (U) 0.6 mg/dL 0.2 - 1.3 mg/dL [place] Calcium [Mass/Vol] 9.6 mg/dL 8.4 - 10. 4 mg/dL [place] Chloride [Moles/Vol] 94 mmol/L Low 98 - 10 7 mmol/L [place] CO2 [Moles/Vol] 28 mmol/L 22 - 30 mmol/L [place] Creatinine [Mass/Vol] 0.86 mg/dL 0.52 - 1.25 mg/dL [place] EGFR IF NonAfrican [place] 76.5 mL/min >60 [place] Comment on above: KDIGO guidelines pro [...] MDRD (S/P/Bld) [Vol rate/Area] 88.7 mL/min/{1.73_m2} >60 [place] Glucose [Mass/Vol] 481 mg/dL Critically high 70 - 1 00 mg/dL [place] Interpretation and review of laboratory results Abnormal [place] Potassium [Moles/Vol] 4.8 mmol/L 3.5 - 5.1 mmol/L [place] Protein [Mass/Vol] 6.9 g/dL 6.3 - 8.2 g/dL [place] Sodium [Moles/Vol] 133 mmol/L Low 135 - 145 mmol/L [place] Urea nitrogen [Mass/Vol] 20 mg/dL 7 - 20 mg/dL [place] Test Performed by [facility], [address] [place] [address] [place] GLUCOSEon 11-23-2020 Glucose [Mass/Vol] 521 mg/dL Critically high 70 - 1 00 mg/dL [place] Interpretation and review of laboratory results Abnormal [place] Test Performed by [facility], [address] [place] [address] [place] Hemoglobin A1Con 11-23-2020 eAG 240 mg/dL [place] HbA1c (Bld) [Mass fraction] 10.0 % Abnormal [place] Comment on above: Normal less than 5.7 % Prediabetes 5.7% to 6.4% Diabetes 6.5% or higher --HgbA1C levels may not be accurate in patients who have renal disease, received recent blood transfusions, are anemic, or who have dyshemoglobinemia. Interpretation and review of laboratory results Abnormal [facility] [employer] [facility] Test Performed by [facility], [address] [place] [address] [place] POCT Glucoseon 11-23-2020 Glucose [Mass/Vol] 305 mg/dL High 70 - 100 mg/dL [place], [place] Comment on above: Test performed by gl ucose meter. Results may be 10%-15% lower than serum/plasma values. (CLIA ID [id number]) Interpretation and review of laboratory results Abnormal [facility] [employer] [facility] [place] Test Performed by [facility], [address] [place], [place] [address] [place], [place] Glucose [Mass/Vol] 427 mg/dL High 70 - 100 mg/dL [place], [place] Comment on above: Test performed by gl ucose meter. Results may be 10%-15% lower than serum/plasma values. (CLIA ID [id number]) Interpretation and review of laboratory results Abnormal [facility] Test Performed by [facility], [address] [place], [place] [address] [facility] [place], [place] Glucose [Mass/Vol] 408 mg/dL High 70 - 100 mg/dL [facility] [place] Comment on above: Test performed by gl ucose meter. Results may be 10%-15% lower than serum/plasma values. (CLIA ID [id number]) Interpretation and review of laboratory results Abnormal [facility] [place] Test Performed by [facility], [address] [place], [place] [address] [facility] [place] Glucose [Mass/Vol] 432 mg/dL High 70 - 100 mg/dL [facility] [place] Comment on above: Test performed by gl ucose meter. Results may be 10%-15% lower than serum/plasma values. (CLIA ID [id number]) Interpretation and review of laboratory results Abnormal [facility] [place] Test Performed by [facility], [address] [place], [place] [address] [facility] [place], [place] Respiratory Panel, Molecular , with COVID-19 (Restricted: peds pts or suitable admitted adults)on 11-23-2020 Respiratory Panel Molecular, with COVID NEGATIVE: No targets were detected by the [employer] Upper Respiratory Pathogens PCR Panel. _ Expected Result: Not Detected The 8digitse Upper Respiratory Pathogens PCR Panel can detect [...] management decisions. This assay was developed by Robert Applebaum MD and distributed under an Emergency Use Authorization (EUA) granted by the FDA for the qualitative detection of SARS-CoV-2 nucleic acid. Provider and patient fact sheets can be found at https://www.fda.gov/medi a/211311/download and https://www.fda.gov/medi a/295986/download. [place], [place] Test Performed by [facility], [address] [place] [address] [place], [place] Basic Metabolic Panelon 11-08 Anion gap [Moles/Vol] 17 mmol/L [place], [place] Calcium [Mass/Vol] 9.8 mg/dL 8.4 - 10. 4 mg/dL [place], [place] Chloride [Moles/Vol] 94 mmol/L Low 98 - 10 7 mmol/L [place], [place] CO2 [Moles/Vol] 23 mmol/L 22 - 30 mmol/L [place], [place] Creatinine [Mass/Vol] 0.75 mg/dL 0.52 - 1.25 mg/dL [place], [place] EGFR IF NonAfrican [place] >90.0 >60 mL/min [place], [place] Comment on above: KDIGO guidelines pro [...] MDRD (S/P/Bld) [Vol rate/Area] mL/min/{1.73_m2} >60 mL/min [place], [place] Glucose [Mass/Vol] 522 mg/dL Critically high 70 - 1 00 mg/dL [place], [place] Potassium [Moles/Vol] 5.5 mmol/L High 3.5 - 5.1 mmol/L [place], [place] Sodium [Moles/Vol] 134 mmol/L Low 135 - 145 mmol/L [place], [place] Urea nitrogen [Mass/Vol] 20 mg/dL 7 - 20 mg/dL [place], [place] COVID-19, Rapidon 11-22-2020 Sodium [Moles/Vol] see below [place], [place] Comment on above: Not Detected Expected Result: Not Detected _ Isothermal nucleic acid amplification performed on the [employer] ID Now System by the [facility] Negative results do not preclude SARS-CoV-2 infection and should not be used as the sole basis for treatment or other patient management decisions. This assay was developed by [employer] and distributed under an Emergency Use Authorization (EUA) granted by the FDA for the qualitative detection of SARS-CoV-2 nucleic acid. Provider and patient fact sheets can be found at https://www.fda.gov/media/709703/download and https://www.fda.gov/media/929815/download. Test Performed by [facility], [address] [place] [address] ORDER WAS CANCELLED 11/22/20 20:20, wrong test code. [place] Abdomen Pelvis W Contrast on 11-22-2020 [facility] Incoming Radiology Results From [facility] - 11/22/2020 7:44 PM EST Patient Name: WILL JACINTO Computed Tomography ACCESSION EXAM DATE/TIME PROCEDURE ORDERING PROVIDER [id number] 11/22/2020 19:[address] Abdomen/Pelvis w/ [place] [id number] -JOEL NELSON Contrast (IV Onl CPT code 34312 Q9967 Reason For Exam (CT Abdomen/Pelvis w/ [...] KEVIN Transcribed Date and Time: 11/22/2020 7:44 [place], [place] Patient Name: WILL ALVARADO Computed Tomography ACCESSION EXAM DATE/TIME PROCEDURE ORDERING PROVIDER [id number] 11/22/2020 19:[address] Abdomen/Pelvis w/ IV [id number] -JOEL NELSON Contrast (IV Onl CPT code 06114 Q9967 Reason For Exam (CT Abdomen/Pelvis w/ [...] KEVIN Transcribed Date and Time: 11/22/2020 7:44 [place], [place] Hemogram (CBC) w/Auto Diffon 11-22-2020 Absolute Baso # 0.0 10*3/uL 0 - 0.2 10*3/uL [place], [place] Absolute Neut # 8.1 10*3/uL High 1.8 - 7 10*3/uL [place], [place] Basophils/100 WBC (Bld) 0.5 % 0 - 2 % [place], [place] Eosinophils (Bld) [#/Vol] 0.0 10*3/uL 0 - 0.5 10*3/uL [place], [place] Eosinophils/100 WBC (Bld) 0.3 % Low 1 - 6 % [place], [place] Erythrocyte distribution width (RBC) [Ratio] 16.1 % High 11.5 - 14.5 % [place], [place] Granulocytes/100 WBC (Bld) 84.9 % High 40 - 80 % [place], [place] Hematocrit (Bld) [Volume fraction] 36.1 % 35 - 47 % [place], [place] Hemoglobin (Bld) [Mass/Vol] 12.0 g/dL 11.7 - 16 g/dL [place], [place] Interpretation and review of laboratory results Abnormal [place], [place] Lymphocytes (Bld) [#/Vol] 0.9 10*3/uL Low 1 - 4.3 10*3/uL [place], [place] Lymphocytes/100 WBC (Bld) 9.4 % Low 20 - 40 % [place], [place] MCH (RBC) [Entitic mass] 29.0 pg 26 - 34 pg [place], [place] MCHC (RBC) [Mass/Vol] 33.3 % 32 - 36 % [place] MCV (RBC) [Entitic vol] 87.2 fL 79 - 98 fL [place], [place] Monocytes (Bld) [#/Vol] 0.5 10*3/uL 0 - 0.8 10*3/uL [place], [place] Monocytes/100 WBC (Bld) 4.9 % 2 - 10 % [place], [place] Platelet mean volume (Bld) [Entitic vol] 8.1 fL 7.4 - 10.4 fL [place], [place] Platelets (Bld) [#/Vol] 404 10*3/uL 140 - 440 10*3/uL [place] RBC (Bld) [#/Vol] 4.15 10*6/uL 3.8 - 5.2 10*6/uL [place] WBC (Bld) [#/Vol] 9.6 10*3/uL 3.6 - 10.7 10*3/uL [place] Test Performed by [facility], [address], [place], [place] [address] [place], [place] Hepatic Function Panelon Albumin [Mass/Vol] 4.2 g/dL 3.5 - 5 g/dL [place] ALP [Catalytic activity/Vol] 181 U/L High 38 - 126 U/L [place], [place] ALT [Catalytic activity/Vol] 44 U/L High 0 - 34 U/L [place], [place] Comment on above: The ALT test is perf ormed by an updated assay method. Please note that the reference intervals have been changed and are now sex specific. AST [Catalytic activity/Vol] 30 U/L 15 - 46 U/L [place], [place] Bilirubin Ql (U) 0.6 mg/dL 0.2 - 1.3 mg/dL [place] Bilirubin.direct [Mass/Vol] 0.0 mg/dL 0 - 0.3 mg/dL [place] Protein [Mass/Vol] 7.4 g/dL 6.3 - 8.2 g/dL [place], [place] Otheron 11-22-2020 Interpretation and review of laboratory results Abnormal [place] Test Performed by [facility], [address], [place], [place] [id number] [place] [address] POCT GLUCOSEon 11-22-2020 Glucose [Mass/Vol] 470 mg/dL [place], [place] Interpretation and review of laboratory results Normal [place], [place] QC OK? yes [place] Troponin x1on 11-22-2020 Troponin I.cardiac [Mass/Vol] ng/mL 0 - 0.034 ng/mL [place], [place] Comment on above: . Test Performed by [facility], [address], [place], [place] [id number] [place] [address] Urinalysison 11-22-2020 Appearance (U) Turbid Abnormal Clear NA [place], [place] Comment on above: . Bilirubin Urine Negative Negative mg/dL [place], [place] Comment on above: . Color (U) Light-Geary Abnormal Lt. Yellow NA [place], [place] Comment on above: . Glucose, Ur >1,000 Abnormal Normal (<70) mg/dL [place], [place] Comment on above: . Interpretation and review of laboratory results Abnormal [place] Ketones Ql (U) 40 mg/dL Abnormal Negative [place], [place] Comment on above: . LEUKOCYTES, UA 75 Abnormal Negative Kat/uL [place], [place] Comment on above: . Nitrite, Urine Negative Negative NA [place], [place] Comment on above: . Occult Blood,Urine >1.0 Abnormal Negative mg/dL [place], [place] Comment on above: . pH (U) 6.0 [pH] [place], [place] Comment on above: . Protein (U) [Mass/Vol] 10 mg/dL Abnormal Negative [place] Comment on above: . RBC (U) [#/Vol] /uL Abnormal 0 - 2 /[HPF] [place], [place] Comment on above: . Specific [place], Urine 1.025 [place] Comment on above: . Squam Epithel, UA 0-2 3 - 5 /[HPF] [place], [place] Comment on above: . Urobilinogen, Urine Normal Normal (0-1) mg/dL [place], [place] Comment on above: . WBC, UA 0-2 0 - 5 /[HPF] [place], [place] Comment on above: . Test Performed by [facility], [address] [place], [place], [place] [id number] [place] [address] XR CHEST PORTABLEon 11-22-19 21 Robert, [facility] In[facility] - 11/22/2020 6:33 PM EST Patient Name: WILL JACINTO Diagnostic Radiology ACCESSION EXAM DATE/TIME PROCEDURE ORDERING PROVIDER [id number] 11/22/2020 18:30 EST CR Chest Portable [id number] -OMARJOEL CPT code 84694 Reason For Exam (CR Chest Portable) SOB [...] B Transcribed Date and Time: 11/22/2020 6:33 [place] Patient Name: WILL ALVARADO Diagnostic Radiology ACCESSION EXAM DATE/TIME PROCEDURE ORDERING PROVIDER [id number] 11/22/2020 18:30 EST CR Chest Portable [id number] -JOEL NELSON CPT code 30538 Reason For Exam (CR Chest Portable) SOB [...] B Transcribed Date and Time: 11/22/2020 6:33 [facility] GASTRIC EMPTYINGon 2019 Robert, [facility] Incoming Radiology Results From [facility] - 09/30/2020 2:38 PM EST Patient Name: WILL JACINTO ---Nuc Med--- Exam Date/Time 09/30/2020 14:12:07 EST Exam NM Gastric Emptying Study Ordering Physician MD MUNIZ REYNALDO C. Accession Number [id number] CPT4 Codes 28164 () Reason For Exam nausea, diabetees Report [...] ANTHONY Transcribed Date and Time: 09/30/2020 2:38 [place] Patient Name: WILL ALVARADO ---Nuc Med--- Exam Date/Time 09/30/2020 14:12:07 EST Exam NM Gastric Emptying Study Ordering Physician MD FLAVIO, CHRIS Wallace Accession Number [id number] CPT4 Codes 85468 () Reason For Exam nausea, diabetees Report [...] ANTHONY Transcribed Date and Time: 09/30/2020 2:38 [place], [place] POC Glucose, Whole Bloodon 1 11-30-2019 Glucose [Mass/Vol] mg/dL High 70 - 100 mg/dL [place], [place] Comment on above: Test performed by gl ucose meter. Results may be 10%-15% lower than serum/plasma values. (CLIA ID [id number]) Interpretation and review of laboratory results Abnormal [place] Sodium [Moles/Vol] see below [place], [place] Comment on above: No confirmation rece ived. Test Performed by [facility], [address] [place], [place], [place] [address] [place], [place] POCT Glucoseon 09-30-2020 Glucose [Mass/Vol] 394 mg/dL High 70 - 100 mg/dL [place], [place] Comment on above: Test performed by gl ucose meter. Results may be 10%-15% lower than serum/plasma values. (CLIA ID [id number]) Interpretation and review of laboratory results Abnormal [facility] [place] Test Performed by [facility], [address] [place], [place] [address] [facility] [place] Glucose [Mass/Vol] 356 mg/dL High 70 - 100 mg/dL [facility] [place] Comment on above: Test performed by gl ucose meter. Results may be 10%-15% lower than serum/plasma values. (CLIA ID [id number]) Interpretation and review of laboratory results Abnormal [facility] [place] Test Performed by [facility], [address] [place], [place] [address] [facility] [place] Glucose [Mass/Vol] 257 mg/dL High 70 - 100 mg/dL [facility] [place] Comment on above: Test performed by gl ucose meter. Results may be 10%-15% lower than serum/plasma values. (CLIA ID [id number]) Interpretation and review of laboratory results Abnormal [facility] Test Performed by [facility], [address] [place]- [place] POCT Glucoseon 09-29-2020 Glucose [Mass/Vol] 209 mg/dL High 70 - 100 mg/dL [facility] Comment on above: Test performed by gl ucose meter. Results may be 10%-15% lower than serum/plasma values. (CLIA ID [id number]) Interpretation and review of laboratory results Abnormal [facility] [place] Test Performed by [facility], [address] [place], [place] [address] [place] [address] [place] Glucose [Mass/Vol] 301 mg/dL High 70 - 100 mg/dL [facility] Comment on above: Test performed by gl ucose meter. Results may be 10%-15% lower than serum/plasma values. (CLIA ID [id number]) Interpretation and review of laboratory results Abnormal [facility] [place] Test Performed by [facility], [address] [place], [place] [address] [place], [place] [address]y [facility]- [place] Glucose [Mass/Vol] 200 mg/dL High 70 - 100 mg/dL [facility] [place] Comment on above: Test performed by gl ucose meter. Results may be 10%-15% lower than serum/plasma values. (CLIA ID [id number]) Interpretation and review of laboratory results Abnormal [employer] Test Performed by [employer] [facility], [address] [place], [place] [address] [facility] [place] COVID-19on 09-28-2020 SARS-CoV-2 Not Detected Not Detected [facility] Comment on above: Not Detected Expected Result: Not Detected _ Real-time, RT-PCR performed on the [employer] System by the [facility] Microbiology Service Negative results do not preclude SARS-CoV-2 infection and should not be used as the sole basis for treatment or other patient management decisions. This assay was developed by [employer] and distributed under an Emergency Use Authorization (EUA) granted by the FDA for the qualitative detection of SARS-CoV-2 nucleic acid. Provider and patient fact sheets can be found at https://www.fda.gov/media/408149/download and https://www.fda.gov/media/572060/download. Test Performed by [facility], [address] [place] [address] Specimen Source Comment:Nasopharyngeal Swab [facility] [place] POCT Glucoseon 09-28-2020 Glucose [Mass/Vol] 346 mg/dL High 70 - 100 mg/dL [facility] [place] Comment on above: Test performed by gl ucose meter. Results may be 10%-15% lower than serum/plasma values. (CLIA ID [id number]) Interpretation and review of laboratory results Abnormal [employer] Test Performed by [employer] [facility], [address] [place], [place] [address] [facility] [place] Glucose [Mass/Vol] 385 mg/dL High 70 - 100 mg/dL [facility] [place] Comment on above: Test performed by gl ucose meter. Results may be 10%-15% lower than serum/plasma values. (CLIA ID [id number]) Interpretation and review of laboratory results Abnormal [employer] Test Performed by [employer] [facility], [address] [place], [place] [address] [facility] [place] Glucose [Mass/Vol] 393 mg/dL High 70 - 100 mg/dL [facility] [place] Comment on above: Test performed by gl ucose meter. Results may be 10%-15% lower than serum/plasma values. (CLIA ID [id number]) Interpretation and review of laboratory results Abnormal [facility] [place] Test Performed by [employer] [facility], [address] [place], [place] [address] [facility] [place] Glucose [Mass/Vol] 322 mg/dL High 70 - 100 mg/dL [facility] [place] Comment on above: Test performed by gl ucose meter. Results may be 10%-15% lower than serum/plasma values. (CLIA ID [id number]) Interpretation and review of laboratory results Abnormal [facility] [place] Test Performed by [employer] [facility], [address] [place], [place] [address] [facility] [place] Glucose [Mass/Vol] 325 mg/dL High 70 - 100 mg/dL [facility] [place] Comment on above: Test performed by gl ucose meter. Results may be 10%-15% lower than serum/plasma values. (CLIA ID [id number]) Interpretation and review of laboratory results Abnormal [facility] [place] Test Performed by [employer] [facility], [address] [place] [address] [facility] [place] Glucose [Mass/Vol] 230 mg/dL High 70 - 100 mg/dL [facility] [place] Comment on above: Test performed by gl ucose meter. Results may be 10%-15% lower than serum/plasma values. (CLIA ID [id number]) Interpretation and review of laboratory results Abnormal [facility] [place] Test Performed by [employer] [facility], [address] [place] [address] [facility] [place] Glucose [Mass/Vol] 233 mg/dL High 70 - 100 mg/dL [facility] [place] Comment on above: Test performed by gl ucose meter. Results may be 10%-15% lower than serum/plasma values. (CLIA ID [id number]) Interpretation and review of laboratory results Abnormal [facility] [place] Test Performed by [employer] [facility], [address] [place], [place] [address] [facility] [place] POCT Glucoseon 11-20-2020 Glucose [Mass/Vol] 248 mg/dL High 70 - 100 mg/dL [facility] [place] Comment on above: Test performed by gl ucose meter. Results may be 10%-15% lower than serum/plasma values. (CLIA ID [id number]) Interpretation and review of laboratory results Abnormal [facility] [place], [place] Test Performed by [facility], [address], [place], [place] [address] [place] [address] [place] Glucose [Mass/Vol] 275 mg/dL High 70 - 100 mg/dL [facility] [place] Comment on above: Test performed by gl ucose meter. Results may be 10%-15% lower than serum/plasma values. (CLIA ID [id number]) Interpretation and review of laboratory results Abnormal [facility], [place] Test Performed by [facility], [address], [address], [place] Glucose [Mass/Vol] 312 mg/dL High 70 - 100 mg/dL [facility], [place] Comment on above: Test performed by gl ucose meter. Results may be 10%-15% lower than serum/plasma values. (CLIA ID [id number]) Interpretation and review of laboratory results Abnormal [employer], [place] Test Performed by [facility], [address], [address] [facility], [place] Glucose [Mass/Vol] 151 mg/dL High 70 - 100 mg/dL [facility], [place] Comment on above: Test performed by gl ucose meter. Results may be 10%-15% lower than serum/plasma values. (CLIA ID [id number]) Interpretation and review of laboratory results Abnormal [place] Test Performed by [facility], [address] [place], [place] [address] [place] [address] [employer] [place], [place] CBC Auto Differentialon 09-08 Absolute Baso # 0.1 10*3/uL 0 - 0.2 10*3/uL [facility] [employer] [place] Absolute Neut # 7.0 10*3/uL 1.8 - 7 10*3/uL [facility] [employer] [place] Basophils/100 WBC (Bld) 1.0 % 0 - 2 % [place] Eosinophils (Bld) [#/Vol] 0.1 10*3/uL 0 - 0.5 10*3/uL [place], [place] Eosinophils/100 WBC (Bld) 1.2 % 1 - 6 % [place] Erythrocyte distribution width (RBC) [Ratio] 15.5 % High 11.5 - 14.5 % [place], [place] Granulocytes/100 WBC (Bld) 71.3 % 40 - 80 % [place] Hematocrit (Bld) [Volume fraction] 38.5 % 35 - 47 % [place] Hemoglobin (Bld) [Mass/Vol] 12.6 g/dL 11.7 - 16 g/dL [place] Interpretation and review of laboratory results Abnormal [place] Lymphocytes (Bld) [#/Vol] 1.6 10*3/uL 1 - 4.3 10*3/uL [place], [place] Lymphocytes/100 WBC (Bld) 16.1 % Low 20 - 40 % [place] MCH (RBC) [Entitic mass] 28.5 pg 26 - 34 pg [place] MCHC (RBC) [Mass/Vol] 32.7 % 32 - 36 % [place], [place] MCV (RBC) [Entitic vol] 87.2 fL 79 - 98 fL [place], [place] Monocytes (Bld) [#/Vol] 1.0 10*3/uL High 0 - 0.8 10*3/uL [place], [place] Monocytes/100 WBC (Bld) 10.4 % High 2 - 10 % [place], [place] Platelet mean volume (Bld) [Entitic vol] 8.1 fL 7.4 - 10.4 fL [place], [place] Platelets (Bld) [#/Vol] 508 10*3/uL High 140 - 440 10*3/uL [place] RBC (Bld) [#/Vol] 4.41 10*6/uL 3.8 - 5.2 10*6/uL [place], [place] WBC (Bld) [#/Vol] 9.8 10*3/uL 3.6 - 10.7 10*3/uL [place] Test Performed by [facility], [address], [place], [place] [address] [place] Comprehensive Metabolic Pane gigi 09-26-2020 Albumin [Mass/Vol] 4.0 g/dL 3.5 - 5 g/dL [place] ALP [Catalytic activity/Vol] 120 U/L 38 - 126 U/L [place] ALT [Catalytic activity/Vol] 127 U/L High 0 - 34 U/L [place] Comment on above: The ALT test is perf ormed by an updated assay method. Please note that the reference intervals have been changed and are now sex specific. Anion gap [Moles/Vol] 12 mmol/L [place] AST [Catalytic activity/Vol] 64 U/L High 15 - 46 U/L [place] Bilirubin Ql (U) 1.4 mg/dL High 0.2 - 1.3 mg/dL [place] Calcium [Mass/Vol] 8.9 mg/dL 8.4 - 10. 4 mg/dL [place] Chloride [Moles/Vol] 97 mmol/L Low 98 - 10 7 mmol/L [place] CO2 [Moles/Vol] 24 mmol/L 22 - 30 mmol/L [place] Creatinine [Mass/Vol] 1.13 mg/dL 0.52 - 1.25 mg/dL [place], [place] EGFR IF NonAfrican [place] 55.1 mL/min Abnormal >60 [place], [place] Comment on above: KDIGO guidelines pro [...] MDRD (S/P/Bld) [Vol rate/Area] 63.8 mL/min/{1.73_m2} >60 [facility] [place] Glucose [Mass/Vol] 207 mg/dL High 70 - 100 mg/dL [facility], [place] Interpretation and review of laboratory results Abnormal [facility], [place] Potassium [Moles/Vol] 4.8 mmol/L 3.5 - 5.1 mmol/L [facility] [employer] [place], [place] Protein [Mass/Vol] 7.7 g/dL 6.3 - 8.2 g/dL [place], [place] Sodium [Moles/Vol] 133 mmol/L Low 135 - 145 mmol/L [place] Urea nitrogen [Mass/Vol] 32 mg/dL High 7 - 20 mg/dL [facility] [place], [place] Test Performed by [facility], [address] [place], [place] [id number] [place] [address] POCT Glucoseon 09-26-2020 Glucose [Mass/Vol] 124 mg/dL High 70 - 100 mg/dL [place] Comment on above: Test performed by [employer] ucose meter. Results may be 10%-15% lower than serum/plasma values. (CLIA ID [id number]) Interpretation and review of laboratory results Abnormal [facility] [place] Test Performed by [employer] [facility], [address] [place], [place] [address] [place] Glucose [Mass/Vol] 225 mg/dL High 70 - 100 mg/dL [place] Comment on above: Test performed by gl ucose meter. Results may be 10%-15% lower than serum/plasma values. (CLIA ID [id number]) Interpretation and review of laboratory results Abnormal [place], [place] Test Performed by [employer] [facility], [address], [place], [place] [address] [facility], [employer] Glucose [Mass/Vol] 308 mg/dL High 70 - 100 mg/dL [facility] [place] Comment on above: Test performed by gl ucose meter. Results may be 10%-15% lower than serum/plasma values. (CLIA ID [id number]) Interpretation and review of laboratory results Abnormal [facility] Test Performed by [facility], [address], [place], [place] [address] [facility] Glucose [Mass/Vol] 259 mg/dL High 70 - 100 mg/dL [facility] [place] Comment on above: Test performed by gl ucose meter. Results may be 10%-15% lower than serum/plasma values. (CLIA ID [id number]) Interpretation and review of laboratory results Abnormal [facility] Test Performed by [facility], [address], [place] [address] [facility] [facility] Glucose [Mass/Vol] 223 mg/dL High 70 - 100 mg/dL [facility] [place] Comment on above: Test performed by gl ucose meter. Results may be 10%-15% lower than serum/plasma values. (CLIA ID [id number]) Interpretation and review of laboratory results Abnormal [facility] [place] Test Performed by [facility], [address] [place], [place], [place] [address] [facility] [place] ECHO Complete 2D W Doppler W Coloron 09-25-2020 [facility], [facility] Incoming Cardiology Results From [facility] - 09/25/2020 4:03 PM EST TRANSTHORACIC ECHOCARDIOGRAM PATIENT: Will Jacinto STUDY DATE: 09/25/2020 : 1965 AGE: 54 HT/WT: 167.6 cm (66 155.9 kg in) (343 lb) GENDER: F BP: 130 / 87 LOCATION: [facility] PATIENT Inpatient [facility] STATUS: *ORDERING PHYSICIAN: * Priyank Rios MD *READING PHYSICIAN: * Ga Davenport MD *FLOOR LAYER: * Jayda Richardson INDICATIONS: SVT. CONCLUSIONS SUMMARY: [...] Ga Davenport MD 09/25/2020 16:02 Prior Signatures: [facility]- [place] TRANSTHORACIC ECHOCARDIOGRAM PATIENT: Will Jacinto STUDY DATE: 09/25/2020 : 1965 AGE: 54 HT/WT: 167.6 cm (66 155.9 kg in) (343 lb) GENDER: F BP: 130 / 87 LOCATION: [facility] PATIENT Inpatient [facility] STATUS: *ORDERING PHYSICIAN: * Priyank Rios MD *READING PHYSICIAN: * Ga Davenport MD *FLOOR LAYER: * Jayda Richardson INDICATIONS: SVT. CONCLUSIONS SUMMARY: [...] Ga Davenport MD 09/25/2020 16:02 Prior Signatures: [facility] POCT Glucoseon 09-25-2020 Glucose [Mass/Vol] 126 mg/dL High 70 - 100 mg/dL [facility] Comment on above: Test performed by [employer] (FIG) ucose meter. Results may be 10%-15% lower than serum/plasma values. (CLIA ID [id number]) Interpretation and review of laboratory results Abnormal [facility] Test Performed by [facility], [address] [place] [address] [facility] Glucose [Mass/Vol] 124 mg/dL High 70 - 100 mg/dL [facility] Comment on above: Test performed by [employer] (FIG) ucose meter. Results may be 10%-15% lower than serum/plasma values. (CLIA ID [id number]) Interpretation and review of laboratory results Abnormal [facility] Test Performed by [facility], [address] [place], [place] [address] [facility] Glucose [Mass/Vol] 173 mg/dL High 70 - 100 mg/dL [facility] Comment on above: Test performed by [employer] (FIG) ucose meter. Results may be 10%-15% lower than serum/plasma values. (CLIA ID [id number]) Interpretation and review of laboratory results Abnormal [facility] Test Performed by [facility] [employer] [facility], [address], [place], [place] [id number] [place] [address] Glucose [Mass/Vol] 121 mg/dL High 70 - 100 mg/dL [place] Comment on above: Test performed by gl ucose meter. Results may be 10%-15% lower than serum/plasma values. (CLIA ID [id number]) Interpretation and review of laboratory results Abnormal [place] Test Performed by [facility], [address] [place], [place] [address] [place] [address] XR ABDOMEN (KUB) (SINGLE AP VIEW)on 09-25-2020 [facility] Incoming Radiology Results From [facility] - 09/25/2020 3:10 PM EST Patient Name: WILL JACINTO ---Diagnostic Radiology--- Exam Date/Time 09/25/2020 14:00:36 EST Exam CR Abdomen AP Ordering Physician DO HILL LISA Accession Number [id number] CPT4 Codes 24192 () Reason For Exam ileus Report CLINICAL [...] HARLAN Transcribed Date and Time: 09/25/2020 3:09 [place], [place] Patient Name: WILL ALVARADO ---Diagnostic Radiology--- Exam Date/Time 09/25/2020 14:00:36 EST Exam CR Abdomen AP Ordering Physician DO HILL LISA Accession Number [id number] CPT4 Codes 84823 () Reason For Exam ileus Report CLINICAL [...] HARLAN Transcribed Date and Time: 09/25/2020 3:09 [place], [place] CBC Auto Differentialon 09-08 Absolute Baso # 0.0 10*3/uL 0 - 0.2 10*3/uL [place] Absolute Neut # 5.3 10*3/uL 1.8 - 7 10*3/uL [place] Basophils/100 WBC (Bld) 0.4 % 0 - 2 % [place] Eosinophils (Bld) [#/Vol] 0.1 10*3/uL 0 - 0.5 10*3/uL [place], [place] Eosinophils/100 WBC (Bld) 1.6 % 1 - 6 % [place] Erythrocyte distribution width (RBC) [Ratio] 15.8 % High 11.5 - 14.5 % [place], [place] Granulocytes/100 WBC (Bld) 74.9 % 40 - 80 % [place] Hematocrit (Bld) [Volume fraction] 59.6 % High 35 - 47 % [place] Hemoglobin (Bld) [Mass/Vol] 19.3 g/dL High 11.7 - 16 g/dL [place] Interpretation and review of laboratory results Abnormal [place] Lymphocytes (Bld) [#/Vol] 1.0 10*3/uL 1 - 4.3 10*3/uL [place], [place] Lymphocytes/100 WBC (Bld) 14.1 % Low 20 - 40 % [place] MCH (RBC) [Entitic mass] 28.3 pg 26 - 34 pg [place] MCHC (RBC) [Mass/Vol] 32.4 % 32 - 36 % [place] MCV (RBC) [Entitic vol] 87.2 fL 79 - 98 fL [place], [place] Monocytes (Bld) [#/Vol] 0.6 10*3/uL 0 - 0.8 10*3/uL [place], [place] Monocytes/100 WBC (Bld) 9.0 % 2 - 10 % [place] Platelet mean volume (Bld) [Entitic vol] 7.5 fL 7.4 - 10.4 fL [place], [place] Platelets (Bld) [#/Vol] 215 10*3/uL 140 - 440 10*3/uL [place] RBC (Bld) [#/Vol] 6.83 10*6/uL High 3.8 - 5.2 10*6/uL [place] WBC (Bld) [#/Vol] 7.1 10*3/uL 3.6 - 10.7 10*3/uL [place] Test Performed by [facility], [address] [place], [place] [address] [place] Comprehensive Metabolic Pane gigi 09-24-2020 Albumin [Mass/Vol] 3.6 g/dL 3.5 - 5 g/dL [place] ALP [Catalytic activity/Vol] 116 U/L 38 - 126 U/L [place] ALT [Catalytic activity/Vol] 113 U/L High 0 - 34 U/L [place] Comment on above: The ALT test is perf ormed by an updated assay method. Please note that the reference intervals have been changed and are now sex specific. Anion gap [Moles/Vol] 8 mmol/L [place] AST [Catalytic activity/Vol] 53 U/L High 15 - 46 U/L [place] Bilirubin Ql (U) 0.9 mg/dL 0.2 - 1.3 mg/dL [place] Calcium [Mass/Vol] 8.7 mg/dL 8.4 - 10. 4 mg/dL [place] Chloride [Moles/Vol] 99 mmol/L 98 - 10 7 mmol/L [place] CO2 [Moles/Vol] 27 mmol/L 22 - 30 mmol/L [place] Creatinine [Mass/Vol] 1.97 mg/dL High 0.52 - 1.25 mg/dL [place], [place] EGFR IF NonAfrican [place] 28.1 mL/min Abnormal >60 [place], [place] Comment on above: KDIGO guidelines pro [...] (S/P/Bld) [Vol rate/Area] 32.6 mL/min/{1.73_m2} Abnormal >60 [place], [place] Glucose [Mass/Vol] 110 mg/dL High 70 - 100 mg/dL [place] Interpretation and review of laboratory results Abnormal [place] Potassium [Moles/Vol] 3.7 mmol/L 3.5 - 5.1 mmol/L [place] Protein [Mass/Vol] 6.7 g/dL 6.3 - 8.2 g/dL [place] Sodium [Moles/Vol] 133 mmol/L Low 135 - 145 mmol/L [place], [place] Urea nitrogen [Mass/Vol] 29 mg/dL High 7 - 20 mg/dL [place] Test Performed by [facility], [address] [place], [place] [id number] [place] [address] MAGNESIUMon 09-24-2020 Magnesium [Mass/Vol] 1.7 mg/dL 1.6 - 2 .3 mg/dL [place] Test Performed by [facility], [address] [place] POCT Glucoseon 09-24-2020 Glucose [Mass/Vol] 119 mg/dL High 70 - 100 mg/dL [place] Comment on above: Test performed by gl ucose meter. Results may be 10%-15% lower than serum/plasma values. (CLIA ID [id number]) Interpretation and review of laboratory results Abnormal [facility] [employer] [facility] [place] Test Performed by [facility], [address] [place] Glucose [Mass/Vol] 187 mg/dL High 70 - 100 mg/dL [place] Comment on above: Test performed by gl ucose meter. Results may be 10%-15% lower than serum/plasma values. (CLIA ID [id number]) Interpretation and review of laboratory results Abnormal [facility] [employer] [place], [place] Test Performed by [facility], [address] [place] Glucose [Mass/Vol] 237 mg/dL High 70 - 100 mg/dL [place] Comment on above: Test performed by gl ucose meter. Results may be 10%-15% lower than serum/plasma values. (CLIA ID [id number]) Interpretation and review of laboratory results Abnormal [facility] [employer] [place] Test Performed by [facility], [address] [place] Glucose [Mass/Vol] 119 mg/dL High 70 - 100 mg/dL [place], [place] Comment on above: Test performed by gl ucose meter. Results may be 10%-15% lower than serum/plasma values. (CLIA ID [id number]) Interpretation and review of laboratory results Abnormal [place] Test Performed by [facility], [address] [place], [place], [place] [address] [place], [place] Surgical Pathologyon 020 Sodium [Moles/Vol] SEE BELOW [place], [place] 1 [id number] [facility] DE[facility] PATHOLOGY AND LABORATORY MEDICINE [address] [place] [address] Fax - FINAL SURGICAL PATHOLOGY REPORT NAME: WILL JACINTO : 1965 54 [id number] LOCATION: [facility] 260 1 PROCEDURE 09/19/2020 DATE: SURGEON: [...] characteristics determined by the clinical laboratories of [facility]. They have not been cleared by [...] negativity on decalcified specimens. Case reviewed at [place] [address] [place] [address]. DEPARTMENT OF PATHOLOGY AND LABORATORY MEDICINE [place], [place] [address] [place], [place] Troponinon 09-24-2020 Troponin I.cardiac [Mass/Vol] ng/mL 0 - 0.034 ng/mL [place], [place] Comment on above: . Test Performed by [facility], [address] [place], [place] [address] Chemistry specimen is slightly hemolyzed. Interpret results with caution. [place] XR ABDOMEN (KUB) (SINGLE AP VIEW)on 09-24-2020 [facility] Incoming Radiology Results From [facility] - 09/24/2020 9:24 AM EST Patient Name: WILL JACINTO ---Diagnostic Radiology--- Exam Date/Time 09/24/2020 09:15:19 EST Exam CR Abdomen AP Ordering Physician DO HILL LISA Accession Number [id number] CPT4 Codes 47817 () Reason For Exam ileus Report Abdomen [...] lateral decubitus views. Report Dictated on Workstation: [employer] --- Final --- Dictating Physician: MD UNDERWOOD BRIAN Signed Date and Time: 09/24/2020 9:22 am Signed by: MD UNDERWOOD BRIAN Transcribed Date and Time: 09/24/2020 9:23 [place], [place] Patient Name: WILL ALVARADO ---Diagnostic Radiology--- Exam Date/Time 09/24/2020 09:15:19 EST Exam CR Abdomen AP Ordering Physician DO HILL LISA Accession Number [id number] CPT4 Codes 45737 () Reason For Exam ileus Report Abdomen [...] lateral decubitus views. Report Dictated on Workstation: [employer] --- Final --- Dictating Physician: MD UNDERWOOD BRIAN Signed Date and Time: 09/24/2020 9:22 am Signed by: MD UNDERWOOD BRIAN Transcribed Date and Time: 09/24/2020 9:23 [place], [place] CBC Auto Differentialon - Absolute Baso # 0.1 10*3/uL 0 - 0.2 10*3/uL [place], [place] Absolute Neut # 8.9 10*3/uL High 1.8 - 7 10*3/uL [place], [place] Basophils/100 WBC (Bld) 0.7 % 0 - 2 % [place], [place] Eosinophils (Bld) [#/Vol] 0.1 10*3/uL 0 - 0.5 10*3/uL [place], [place] Eosinophils/100 WBC (Bld) 1.1 % 1 - 6 % [place] Erythrocyte distribution width (RBC) [Ratio] 15.2 % High 11.5 - 14.5 % [place] Granulocytes/100 WBC (Bld) 73.0 % 40 - 80 % [place], [place] Hematocrit (Bld) [Volume fraction] 35.4 % 35 - 47 % [place], [place] Hemoglobin (Bld) [Mass/Vol] 11.8 g/dL 11.7 - 16 g/dL [place], [place] Interpretation and review of laboratory results Abnormal [place], [place] Lymphocytes (Bld) [#/Vol] 1.9 10*3/uL 1 - 4.3 10*3/uL [place], [place] Lymphocytes/100 WBC (Bld) 15.7 % Low 20 - 40 % [place] MCH (RBC) [Entitic mass] 29.0 pg 26 - 34 pg [place] MCHC (RBC) [Mass/Vol] 33.4 % 32 - 36 % [place], [place] MCV (RBC) [Entitic vol] 86.8 fL 79 - 98 fL [place], [place] Monocytes (Bld) [#/Vol] 1.2 10*3/uL High 0 - 0.8 10*3/uL [place], [place] Monocytes/100 WBC (Bld) 9.5 % 2 - 10 % [place], [place] Platelet mean volume (Bld) [Entitic vol] 7.3 fL Low 7.4 - 10.4 fL [place], [place] Platelets (Bld) [#/Vol] 454 10*3/uL High 140 - 440 10*3/uL [place] RBC (Bld) [#/Vol] 4.08 10*6/uL 3.8 - 5.2 10*6/uL [place] WBC (Bld) [#/Vol] 12.1 10*3/uL High 3.6 - 10.7 10*3/uL [place] Test Performed by [facility], [address], [place], [place] [address] [place], [place] Comprehensive Metabolic Pane gigi 09-23-2020 Albumin [Mass/Vol] 3.7 g/dL 3.5 - 5 g/dL [place] ALP [Catalytic activity/Vol] 150 U/L High 38 - 126 U/L [place] ALT [Catalytic activity/Vol] 126 U/L High 0 - 34 U/L [place] Comment on above: The ALT test is perf ormed by an updated assay method. Please note that the reference intervals have been changed and are now sex specific. Anion gap [Moles/Vol] 10 mmol/L [place], [place] AST [Catalytic activity/Vol] 42 U/L 15 - 46 U/L [place] Bilirubin Ql (U) 0.9 mg/dL 0.2 - 1.3 mg/dL [place] Calcium [Mass/Vol] 8.6 mg/dL 8.4 - 10. 4 mg/dL [place] Chloride [Moles/Vol] 93 mmol/L Low 98 - 10 7 mmol/L [place] CO2 [Moles/Vol] 24 mmol/L 22 - 30 mmol/L [place] Creatinine [Mass/Vol] 1.05 mg/dL 0.52 - 1.25 mg/dL [place], [place] EGFR IF NonAfrican [place] 60.2 mL/min >60 [place], [place] Comment on above: KDIGO guidelines pro [...] MDRD (S/P/Bld) [Vol rate/Area] 69.8 mL/min/{1.73_m2} >60 [place], [place] Glucose [Mass/Vol] 242 mg/dL High 70 - 100 mg/dL [place] Interpretation and review of laboratory results Abnormal [place], [place] Potassium [Moles/Vol] 3.9 mmol/L 3.5 - 5.1 mmol/L [place], [place] Protein [Mass/Vol] 7.2 g/dL 6.3 - 8.2 g/dL [place] Sodium [Moles/Vol] 127 mmol/L Low 135 - 145 mmol/L [place], [place] Urea nitrogen [Mass/Vol] 26 mg/dL High 7 - 20 mg/dL [place] Test Performed by [facility], [address] POC Glucose, Whole Bloodon 1 11-23-2019 Glucose [Mass/Vol] mg/dL High 70 - 100 mg/dL [place] Comment on above: Test performed by gl ucose meter. Results may be 10%-15% lower than serum/plasma values. (CLIA ID [id number]) Interpretation and review of laboratory results Abnormal [place], [place] Sodium [Moles/Vol] see below [place], [place] Comment on above: No confirmation rece ived. Test Performed by [facility], [address] [place], [place] [id number] [place] [address] POCT Glucoseon 09-23-2020 Glucose [Mass/Vol] 171 mg/dL High 70 - 100 mg/dL [place] Comment on above: Test performed by gl ucose meter. Results may be 10%-15% lower than serum/plasma values. (CLIA ID [id number]) Interpretation and review of laboratory results Abnormal [place] Test Performed by [facility], [address] [place], [place] [address] [facility] Glucose [Mass/Vol] 278 mg/dL High 70 - 100 mg/dL [facility] Comment on above: Test performed by gl ucose meter. Results may be 10%-15% lower than serum/plasma values. (CLIA ID [id number]) Interpretation and review of laboratory results Abnormal [facility] Test Performed by [facility], [address], [place], [place] [address] [facility] Glucose [Mass/Vol] 401 mg/dL High 70 - 100 mg/dL [facility] Comment on above: Test performed by gl ucose meter. Results may be 10%-15% lower than serum/plasma values. (CLIA ID [id number]) Interpretation and review of laboratory results Abnormal [facility] Test Performed by [facility], [address], [place], [place] [address] [facility] Glucose [Mass/Vol] 348 mg/dL High 70 - 100 mg/dL [facility] Comment on above: Test performed by gl ucose meter. Results may be 10%-15% lower than serum/plasma values. (CLIA ID [id number]) Interpretation and review of laboratory results Abnormal [facility] Test Performed by [facility], [address], [place], [place] [address] [facility] Glucose [Mass/Vol] 231 mg/dL High 70 - 100 mg/dL [facility] Comment on above: Test performed by gl ucose meter. Results may be 10%-15% lower than serum/plasma values. (CLIA ID [id number]) Interpretation and review of laboratory results Abnormal [facility] Test Performed by [facility], [address], [place], [place] [address] [facility] XR ABDOMEN (KUB) (SINGLE AP VIEW)on 09-23-2020 [facility] Incoming Radiology Results From [facility] - 09/23/2020 11:02 AM EST Patient Name: WILL JACINTO ---Diagnostic Radiology--- Exam Date/Time 09/23/2020 10:26:17 EST Exam CR Abdomen AP Ordering Physician MD DAVID RICHARD H Accession Number [id number] CPT4 Codes 86642 () Reason For Exam ileus, improving Report [...] RISA Transcribed Date and Time: 09/23/2020 11:01 [place] Patient Name: WILL ALVARADO ---Diagnostic Radiology--- Exam Date/Time 09/23/2020 10:26:17 EST Exam CR Abdomen AP Ordering Physician MD DAVID RICHARD H Accession Number [id number] CPT4 Codes 94973 () Reason For Exam ileus, improving Report [...] RISA Transcribed Date and Time: 09/23/2020 11:01 [place], [place] CBC Auto Differentialon 09-08 Absolute Baso # 0.1 10*3/uL 0 - 0.2 10*3/uL [place], [place] Absolute Neut # 6.8 10*3/uL 1.8 - 7 10*3/uL [place], [place] Basophils/100 WBC (Bld) 0.9 % 0 - 2 % [place] Eosinophils (Bld) [#/Vol] 0.2 10*3/uL 0 - 0.5 10*3/uL [place], [place] Eosinophils/100 WBC (Bld) 1.9 % 1 - 6 % [place] Erythrocyte distribution width (RBC) [Ratio] 14.9 % High 11.5 - 14.5 % [place], [place] Granulocytes/100 WBC (Bld) 69.3 % 40 - 80 % [place] Hematocrit (Bld) [Volume fraction] 35.1 % 35 - 47 % [place] Hemoglobin (Bld) [Mass/Vol] 11.8 g/dL 11.7 - 16 g/dL [place] Interpretation and review of laboratory results Abnormal [place], [place] Lymphocytes (Bld) [#/Vol] 1.8 10*3/uL 1 - 4.3 10*3/uL [place], [place] Lymphocytes/100 WBC (Bld) 18.3 % Low 20 - 40 % [place] MCH (RBC) [Entitic mass] 29.0 pg 26 - 34 pg [place] MCHC (RBC) [Mass/Vol] 33.5 % 32 - 36 % [place] MCV (RBC) [Entitic vol] 86.4 fL 79 - 98 fL [place], [place] Monocytes (Bld) [#/Vol] 0.9 10*3/uL High 0 - 0.8 10*3/uL [place], [place] Monocytes/100 WBC (Bld) 9.6 % 2 - 10 % [place] Platelet mean volume (Bld) [Entitic vol] 7.3 fL Low 7.4 - 10.4 fL [place], [place] Platelets (Bld) [#/Vol] 474 10*3/uL High 140 - 440 10*3/uL [place] RBC (Bld) [#/Vol] 4.07 10*6/uL 3.8 - 5.2 10*6/uL [place] WBC (Bld) [#/Vol] 9.7 10*3/uL 3.6 - 10.7 10*3/uL [place] Test Performed by [facility], [address], [place] [address] [place], [place] Comprehensive Metabolic Pane gigi 09-22-2020 Albumin [Mass/Vol] 3.7 g/dL 3.5 - 5 g/dL [place] ALP [Catalytic activity/Vol] 125 U/L 38 - 126 U/L [place] ALT [Catalytic activity/Vol] 137 U/L High 0 - 34 U/L [place] Comment on above: The ALT test is perf ormed by an updated assay method. Please note that the reference intervals have been changed and are now sex specific. Anion gap [Moles/Vol] 5 mmol/L [place], [place] AST [Catalytic activity/Vol] 51 U/L High 15 - 46 U/L [place] Bilirubin Ql (U) 0.7 mg/dL 0.2 - 1.3 mg/dL [place] Calcium [Mass/Vol] 9.0 mg/dL 8.4 - 10. 4 mg/dL [place] Chloride [Moles/Vol] 94 mmol/L Low 98 - 10 7 mmol/L [place] CO2 [Moles/Vol] 29 mmol/L 22 - 30 mmol/L [place] Creatinine [Mass/Vol] 0.88 mg/dL 0.52 - 1.25 mg/dL [place], [place] EGFR IF NonAfrican [place] 74.5 mL/min >60 [place], [place] Comment on above: KDIGO guidelines pro [...] MDRD (S/P/Bld) [Vol rate/Area] 86.4 mL/min/{1.73_m2} >60 [place] Glucose [Mass/Vol] 269 mg/dL High 70 - 100 mg/dL [place] Interpretation and review of laboratory results Abnormal [place] Potassium [Moles/Vol] 4.1 mmol/L 3.5 - 5.1 mmol/L [place] Protein [Mass/Vol] 6.9 g/dL 6.3 - 8.2 g/dL [place] Sodium [Moles/Vol] 129 mmol/L Low 135 - 145 mmol/L [place] Urea nitrogen [Mass/Vol] 21 mg/dL High 7 - 20 mg/dL [place] Test Performed by [facility], [address] [place], [place] [id number] [place] [address] POCT Glucoseon 09-22-2020 Glucose [Mass/Vol] 363 mg/dL High 70 - 100 mg/dL [place] Comment on above: Test performed by gl ucose meter. Results may be 10%-15% lower than serum/plasma values. (CLIA ID [id number]) Interpretation and review of laboratory results Abnormal [place] Test Performed by [facility], [address] [place], [place] [address] [place] Glucose [Mass/Vol] 355 mg/dL High 70 - 100 mg/dL [place], [place] Comment on above: Test performed by gl ucose meter. Results may be 10%-15% lower than serum/plasma values. (CLIA ID [id number]) Interpretation and review of laboratory results Abnormal [place] Test Performed by [facility], [address] [place], [place] [id number] [place] [address] Glucose [Mass/Vol] 328 mg/dL High 70 - 100 mg/dL [place] Comment on above: Test performed by gl ucose meter. Results may be 10%-15% lower than serum/plasma values. (CLIA ID [id number]) Interpretation and review of laboratory results Abnormal [facility] Test Performed by [facility], [address], [place], [place] [address] [facility] Glucose [Mass/Vol] 277 mg/dL High 70 - 100 mg/dL [facility] [place] Comment on above: Test performed by gl ucose meter. Results may be 10%-15% lower than serum/plasma values. (CLIA ID [id number]) Interpretation and review of laboratory results Abnormal [facility] Test Performed by [facility], [address], [place], [place] [address] [facility] ABDOMEN (KUB) (SINGLE AP VIEW)on 09-22-2020 Patient Name: WILL ALVARADO ---Diagnostic Radiology--- Exam Date/Time 09/22/2020 07:41:53 EST Exam CR Abdomen AP Ordering Physician MD JOANN, KYLAH Accession Number [id number] CPT4 Codes 68158 () Reason For Exam ileus Report ABDOMEN: [...] RACHEL Transcribed Date and Time: 09/22/2020 8:32 [facility] Nati Jones Incoming Radiology Results From [facility] - 09/22/2020 8:33 AM EST Patient Name: WILL JACINTO ---Diagnostic Radiology--- Exam Date/Time 09/22/2020 07:41:53 EST Exam CR Abdomen AP Ordering Physician MD JOANN, KYLAH Garcia Accession Number [id number] CPT4 Codes 68578 () Reason For Exam ileus Report ABDOMEN: [...] RACHEL Transcribed Date and Time: 09/22/2020 8:32 [facility] GLUCOSEon 09-21-2020 Glucose [Mass/Vol] 461 mg/dL Critically high 70 - 1 00 mg/dL [facility] Interpretation and review of laboratory results Abnormal [place] Test Performed by [facility], [address] [place], [place] [address] [place], [place] [address]ology POCT Glucoseon 09-21-2020 Glucose [Mass/Vol] 446 mg/dL High 70 - 100 mg/dL [facility] Comment on above: Test performed by gl ucose meter. Results may be 10%-15% lower than serum/plasma values. (CLIA ID [id number]) Interpretation and review of laboratory results Abnormal [place] Test Performed by [facility], [address] [place], [place] [address] [facility] Glucose [Mass/Vol] 440 mg/dL High 70 - 100 mg/dL [facility] Comment on above: Test performed by gl ucose meter. Results may be 10%-15% lower than serum/plasma values. (CLIA ID [id number]) Interpretation and review of laboratory results Abnormal [place] Test Performed by [facility], [address] [place] [address] [facility] Glucose [Mass/Vol] 138 mg/dL High 70 - 100 mg/dL [place] Comment on above: Test performed by gl ucose meter. Results may be 10%-15% lower than serum/plasma values. (CLIA ID [id number]) Interpretation and review of laboratory results Abnormal [place] Test Performed by [facility], [address], [place], [place] [address] [place] Basic Metabolic Panelon 11- Anion gap [Moles/Vol] 6 mmol/L [place] Calcium [Mass/Vol] 8.7 mg/dL 8.4 - 10. 4 mg/dL [place] Chloride [Moles/Vol] 101 mmol/L 98 - 10 7 mmol/L [place] CO2 [Moles/Vol] 27 mmol/L 22 - 30 mmol/L [place] Creatinine [Mass/Vol] 0.81 mg/dL 0.52 - 1.25 mg/dL [place] EGFR IF NonAfrican [place] 82.4 mL/min >60 [place] Comment on above: KDIGO guidelines pro [...] MDRD (S/P/Bld) [Vol rate/Area] mL/min/{1.73_m2} >60 mL/min [place], [place] Glucose [Mass/Vol] 259 mg/dL High 70 - 100 mg/dL [facility] [place] Interpretation and review of laboratory results Abnormal [facility], [place] Potassium [Moles/Vol] 4.5 mmol/L 3.5 - 5.1 mmol/L [facility], [place] Sodium [Moles/Vol] 134 mmol/L Low 135 - 145 mmol/L [place], [place] Urea nitrogen [Mass/Vol] 22 mg/dL High 7 - 20 mg/dL [facility], [place] Test Performed by [facility], [address], [place], [place] [address] [place], [place] POCT Glucoseon 09-20-2020 Glucose [Mass/Vol] 129 mg/dL High 70 - 100 mg/dL [place], [place] Comment on above: Test performed by gl ucose meter. Results may be 10%-15% lower than serum/plasma values. (CLIA ID [id number]) Interpretation and review of laboratory results Abnormal [facility], [place] Test Performed by [facility], [address], [place], [place] [id number] [place] [address] Glucose [Mass/Vol] 192 mg/dL High 70 - 100 mg/dL [place], [place] Comment on above: Test performed by gl ucose meter. Results may be 10%-15% lower than serum/plasma values. (CLIA ID [id number]) Interpretation and review of laboratory results Abnormal [facility], [place] Test Performed by [facility], [address], [place], [place] [id number] [place] [address] Glucose [Mass/Vol] 352 mg/dL High 70 - 100 mg/dL [place], [place] Comment on above: Test performed by gl ucose meter. Results may be 10%-15% lower than serum/plasma values. (CLIA ID [id number]) Interpretation and review of laboratory results Abnormal [facility], [place] Test Performed by [facility], [address], [place], [place] [address] [facility], [place] Glucose [Mass/Vol] 283 mg/dL High 70 - 100 mg/dL [facility], [place] Comment on above: Test performed by gl ucose meter. Results may be 10%-15% lower than serum/plasma values. (CLIA ID [id number]) Interpretation and review of laboratory results Abnormal [place] Test Performed by [facility], [address], [place], [place] [address] [place], [place] XR ABDOMEN (KUB) (SINGLE AP VIEW)on 09-20-2020 [facility] Incoming Radiology Results From [facility] - 09/20/2020 10:48 AM EST Patient Name: WILL JACINTO ---Diagnostic Radiology--- Exam Date/Time 09/20/2020 08:59:00 EST Exam CR Abdomen AP Ordering Physician DO HILL LISA Accession Number [id number] CPT4 Codes 09083 () Reason For Exam ileus Report EXAMINATION: [...] NELSON Transcribed Date and Time: 09/20/2020 10:48 [place], [place] Patient Name: WILL ALVARADO ---Diagnostic Radiology--- Exam Date/Time 09/20/2020 08:59:00 EST Exam CR Abdomen AP Ordering Physician DO HILL LISA Accession Number [id number] CPT4 Codes 51541 () Reason For Exam ileus Report EXAMINATION: [...] NELSON Transcribed Date and Time: 09/20/2020 10:48 [place], [place] CBC Auto Differentialon 09-08 Erythrocyte distribution width (RBC) [Ratio] 15.3 % High 11.5 - 14.5 % [place], [place] Hematocrit (Bld) [Volume fraction] 32.5 % Low 35 - 47 % [place] Hemoglobin (Bld) [Mass/Vol] 10.6 g/dL Low 11.7 - 16 g/dL [place] Interpretation and review of laboratory results Abnormal [place], [place] MCH (RBC) [Entitic mass] 29.0 pg 26 - 34 pg [place], [place] MCHC (RBC) [Mass/Vol] 32.7 % 32 - 36 % [place] MCV (RBC) [Entitic vol] 88.7 fL 79 - 98 fL [place], [place] Platelet mean volume (Bld) [Entitic vol] 7.3 fL Low 7.4 - 10.4 fL [place], [place] Platelets (Bld) [#/Vol] 519 10*3/uL High 140 - 440 10*3/uL [place], [place] RBC (Bld) [#/Vol] 3.67 10*6/uL Low 3.8 - 5.2 10*6/uL [place], [place] WBC (Bld) [#/Vol] 8.5 10*3/uL 3.6 - 10.7 10*3/uL [place] Test Performed by [facility], [address], [place], [place] [address] [place], [place] Comprehensive Metabolic Pane gigi 09-19-2020 Albumin [Mass/Vol] 3.6 g/dL 3.5 - 5 g/dL [place], [place] ALP [Catalytic activity/Vol] 128 U/L High 38 - 126 U/L [place] ALT [Catalytic activity/Vol] 125 U/L High 0 - 34 U/L [place] Comment on above: The ALT test is perf ormed by an updated assay method. Please note that the reference intervals have been changed and are now sex specific. Anion gap [Moles/Vol] 7 mmol/L [place], [place] AST [Catalytic activity/Vol] 68 U/L High 15 - 46 U/L [place] Bilirubin Ql (U) 0.6 mg/dL 0.2 - 1.3 mg/dL [place] Calcium [Mass/Vol] 8.9 mg/dL 8.4 - 10. 4 mg/dL [place], [place] Chloride [Moles/Vol] 99 mmol/L 98 - 10 7 mmol/L [place] CO2 [Moles/Vol] 25 mmol/L 22 - 30 mmol/L [place] Creatinine [Mass/Vol] 0.88 mg/dL 0.52 - 1.25 mg/dL [place], [place] EGFR IF NonAfrican [place] 74.5 mL/min >60 [place], [place] Comment on above: KDIGO guidelines pro [...] MDRD (S/P/Bld) [Vol rate/Area] 86.4 mL/min/{1.73_m2} >60 [place], [place] Glucose [Mass/Vol] 395 mg/dL High 70 - 100 mg/dL [place] Interpretation and review of laboratory results Abnormal [facility] Potassium [Moles/Vol] 5.8 mmol/L High 3.5 - 5.1 mmol/L [facility] [place] Protein [Mass/Vol] 7.2 g/dL 6.3 - 8.2 g/dL [facility] [place] Sodium [Moles/Vol] 131 mmol/L Low 135 - 145 mmol/L [facility] Urea nitrogen [Mass/Vol] 29 mg/dL High 7 - 20 mg/dL [facility] Test Performed by [facility], [address], [place], [place] [address] [facility] Manual Differentialon 2019 Absolute Baso # 0.0 10*3/uL 0 - 0.2 10*3/uL [facility] Absolute Eos # 0.1 10*3/uL 0 - 0.5 10*3/uL [facility] [place] Absolute Lymph # 0.9 10*3/uL Low 1.1 - 4.5 10*3/uL [facility] Absolute [place] # 0.6 10*3/uL 0.2 - 1.1 10*3/uL [facility] Absolute Neut # 6.5 10*3/uL 2.2 - 8.2 10*3/uL [facility] Anisocytosis Ql (Bld) Slight [facility] Bands 1 % 0 - 3 % [facility] [place] Basophils 0 % 0 - 2 % [facility] [place] Eosinophils 1 % 1 - 6 % [facility] [place] Hypochromia Slight [facility] Interpretation and review of laboratory results Abnormal [facility] Lymphocytes 11 % Low 20 - 40 % [facility] [place] Metamyelocytes 4 % Abnormal <1 [facility] [place] Monocytes 7 % 2 - 10 % [facility] [place] Polychromasia Slight [facility] [place] RBC morphology finding Nom (Bld) ABNORMAL [facility] Seg Neutrophils 76 % 40 - 80 % [facility] [place] TOTAL CELLS COUNTED 100 [facility] Test Performed by [facility], [address], [place], [place] [address] [facility] Otheron 09-19-2020 Interpretation and review of laboratory results Abnormal [employer] Test Performed by [facility], [address], [place] [address] [facility] [place] POCT Glucoseon 09-19-2020 Glucose [Mass/Vol] 286 mg/dL High 70 - 100 mg/dL [facility] Comment on above: Test performed by gl ucose meter. Results may be 10%-15% lower than serum/plasma values. (CLIA ID [id number]) Interpretation and review of laboratory results Abnormal [employer] Test Performed by [facility], [address], [place], [place] [address] [facility] Glucose [Mass/Vol] 395 mg/dL High 70 - 100 mg/dL [facility] Comment on above: Test performed by gl ucose meter. Results may be 10%-15% lower than serum/plasma values. (CLIA ID [id number]) Interpretation and review of laboratory results Abnormal [employer] Test Performed by [facility], [address], [place], [place] [address] [facility] [place] Glucose [Mass/Vol] 406 mg/dL High 70 - 100 mg/dL [facility] Comment on above: Test performed by gl ucose meter. Results may be 10%-15% lower than serum/plasma values. (CLIA ID [id number]) Glucose [Mass/Vol] 412 mg/dL High 70 - 100 mg/dL [facility] [place] Comment on above: Test performed by gl ucose meter. Results may be 10%-15% lower than serum/plasma values. (CLIA ID [id number]) XR ABDOMEN (KUB) (SINGLE AP VIEW)on 09-19-2020 [facility] Incoming Radiology Results From [facility] - 09/19/2020 1:20 PM EST Patient Name: WILL JACINTO ---Diagnostic Radiology--- Exam Date/Time 09/19/2020 12:13:39 EST Exam CR Abdomen AP Ordering Physician MD JOANN, [place]LAH Garcia Accession Number [id number] CPT4 Codes 43153 () Reason For Exam ileus fu Report [...] KRIKOR Transcribed Date and Time: 09/19/2020 1:20 [place], [place] Patient Name: WILL ALVARADO ---Diagnostic Radiology--- Exam Date/Time 09/19/2020 12:13:39 EST Exam CR Abdomen AP Ordering Physician MD DAVID RICHARD H Accession Number [id number] CPT4 Codes 31464 () Reason For Exam ileus fu Report [...] KRIKOR Transcribed Date and Time: 09/19/2020 1:20 [place], [place] Basic Metabolic Panelon 09-08 Anion gap [Moles/Vol] 10 mmol/L [place] Calcium [Mass/Vol] 9.0 mg/dL 8.4 - 10. 4 mg/dL [place] Chloride [Moles/Vol] 99 mmol/L 98 - 10 7 mmol/L [place] CO2 [Moles/Vol] 25 mmol/L 22 - 30 mmol/L [place] Creatinine [Mass/Vol] 0.99 mg/dL 0.52 - 1.25 mg/dL [place], [place] EGFR IF NonAfrican [place] 64.6 mL/min >60 [place] Comment on above: KDIGO guidelines pro [...] MDRD (S/P/Bld) [Vol rate/Area] 74.9 mL/min/{1.73_m2} >60 [place] Glucose [Mass/Vol] 310 mg/dL High 70 - 100 mg/dL [place] Interpretation and review of laboratory results Abnormal [place], [place] Potassium [Moles/Vol] 5.3 mmol/L High 3.5 - 5.1 mmol/L [place] Sodium [Moles/Vol] 134 mmol/L Low 135 - 145 mmol/L [place] Urea nitrogen [Mass/Vol] 35 mg/dL High 7 - 20 mg/dL [place] Test Performed by [facility], [address], [place], [place] [address] [place], [place] Comprehensive Metabolic Pane l w/ Reflex to MGon 09-18-2020 Albumin [Mass/Vol] 3.9 g/dL 3.5 - 5 g/dL [place] ALP [Catalytic activity/Vol] 133 U/L High 38 - 126 U/L [place] ALT [Catalytic activity/Vol] 104 U/L High 0 - 34 U/L [place] Comment on above: The ALT test is perf ormed by an updated assay method. Please note that the reference intervals have been changed and are now sex specific. Anion gap [Moles/Vol] 8 mmol/L [place] AST [Catalytic activity/Vol] 74 U/L High 15 - 46 U/L [place] Bilirubin Ql (U) 0.8 mg/dL 0.2 - 1.3 mg/dL [place] Calcium [Mass/Vol] 9.2 mg/dL 8.4 - 10. 4 mg/dL [place] Chloride [Moles/Vol] 104 mmol/L 98 - 10 7 mmol/L [place] CO2 [Moles/Vol] 26 mmol/L 22 - 30 mmol/L [place] Creatinine [Mass/Vol] 0.97 mg/dL 0.52 - 1.25 mg/dL [place], [place] EGFR IF NonAfrican [place] 66.3 mL/min >60 [place] Comment on above: KDIGO guidelines pro [...] MDRD (S/P/Bld) [Vol rate/Area] 76.8 mL/min/{1.73_m2} >60 [facility], [place] Glucose [Mass/Vol] 175 mg/dL High 70 - 100 mg/dL [facility] Interpretation and review of laboratory results Abnormal [place] Potassium [Moles/Vol] 5.5 mmol/L High 3.5 - 5.1 mmol/L [facility], [place] Protein [Mass/Vol] 7.8 g/dL 6.3 - 8.2 g/dL [facility], [place] Sodium [Moles/Vol] 138 mmol/L 135 - 145 mmol/L [place] Urea nitrogen [Mass/Vol] 40 mg/dL High 7 - 20 mg/dL [place] Test Performed by [facility], [address] [place] [address] EKG 12 Lead - Chest Painon 1 11-18-2019 [facility] Incoming Cardiology Results From [facility] - 09/18/2020 4:47 PM EST [facility] Test Date: 2020-09-17 Pat Name: Will Jacinto Department: 01 Room: 268 Gender: F 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 : 1965 Requested By: ART ZENG Order Number: [id number] Reading MD: Justin Ramirez Measurements Intervals [place] Rate: 82 P: 37 [place]: 172 QRS: -39 QRSD: 110 T: 26 QT: 376 QTc: 439 Interpretive Statements SINUS RHYTHM NONSPECIFIC IVCD WITH LAD LEFT VENTRICULAR HYPERTROPHY Compared to ECG 06/24/2018 21:26:56 Intraventricular conduction delay now present Electronically Signed On 09-18-2020 16:46:18 EST by Justin Ramirez [facility], [facility] Test Date: 2020-09-17 Pat Name: Will Jacinto Department: 01 Room: 268 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 Results may be 10%-15% lower than serum/plasma values. (CLIA ID [id number]) Interpretation and review of laboratory results Abnormal [place] Test Performed by [facility], [address] [place] [address] [place], [facility] Glucose [Mass/Vol] 349 mg/dL High 70 - 100 mg/dL [place], [employer] Comment on above: Test performed by gl ucose meter. Results may be 10%-15% lower than serum/plasma values. (CLIA ID [id number]) Interpretation and review of laboratory results Abnormal [place] Test Performed by [facility], [address] [place], [place] [address] [place] Glucose [Mass/Vol] 341 mg/dL High 70 - 100 mg/dL [place], [place] Comment on above: Test performed by gl ucose meter. Results may be 10%-15% lower than serum/plasma values. (CLIA ID [id number]) Interpretation and review of laboratory results Abnormal [place] Test Performed by [facility], [address], [place], [place] [address] [place] Glucose [Mass/Vol] 312 mg/dL High 70 - 100 mg/dL [place], [place] Comment on above: Test performed by gl ucose meter. Results may be 10%-15% lower than serum/plasma values. (CLIA ID [id number]) Interpretation and review of laboratory results Abnormal [facility] Test Performed by [facility], [address], [place], [place] [address] [facility] Glucose [Mass/Vol] 235 mg/dL High 70 - 100 mg/dL [facility] Comment on above: Test performed by gl ucose meter. Results may be 10%-15% lower than serum/plasma values. (CLIA ID [id number]) Interpretation and review of laboratory results Abnormal [facility] Test Performed by [facility], [address], [place], [place] [address] [facility] XR ABDOMEN (KUB) (SINGLE AP VIEW)on 09-18-2020 [facility] Incoming Radiology Results From [facility] - 09/18/2020 10:26 AM EST Patient Name: WILL JACINTO ---Diagnostic Radiology--- Exam Date/Time 09/18/2020 09:25:00 EST Exam CR Abdomen AP Ordering Physician DO HILL LISA Accession Number [id number] CPT4 Codes 13421 () Reason For Exam ileus Report Clinical [...] HARLAN Transcribed Date and Time: 09/18/2020 10:25 [place] Patient Name: WILL ALVARADO ---Diagnostic Radiology--- Exam Date/Time 09/18/2020 09:25:00 EST Exam CR Abdomen AP Ordering Physician DO HILL LISA Accession Number [id number] CPT4 Codes 74421 () Reason For Exam ileus Report Clinical [...] HARLAN Transcribed Date and Time: 09/18/2020 10:25 [place] Abdomen Pelvis W Contrast on 09-17-2020 Robert, [facility] Incoming Radiology Results From [facility] - 09/17/2020 10:32 PM EST Patient Name: WILL JACINTO ---CT--- Exam Date/Time 09/17/2020 22:15:[address] Abdomen/Pelvis w/ IV Contrast (IV Onl Ordering Physician ART OWEN Accession Number [id number] CPT4 Codes 28510 (CT Abdomen/Pelvis w/ IV Contrast (IV Onl), Q9967 (CT ISOVUE 370MG/ML&[id number]&ML& 1) Reason For Exam abd pain/tenderness Report [...] R Transcribed Date and Time: 09/17/2020 10:31 [place] Patient Name: WILL ALVARADO ---CT--- Exam Date/Time 09/17/2020 22:15:[address] Abdomen/Pelvis w/ IV Contrast (IV Onl Ordering Physician ART OWEN Accession Number [id number] CPT4 Codes 38717 (CT Abdomen/Pelvis w/ IV Contrast (IV Onl), Q9967 (CT ISOVUE 370MG/ML&[id number]&ML& 1) Reason For Exam abd pain/tenderness Report [...] R Transcribed Date and Time: 09/17/2020 10:31 [place] Comprehensive Metabolic [facility] 09-17-2020 Albumin [Mass/Vol] 4.2 g/dL 3.5 - 5 g/dL [place] ALP [Catalytic activity/Vol] 153 U/L High 38 - 126 U/L [place] ALT [Catalytic activity/Vol] 104 U/L High 0 - 34 U/L [place] Comment on above: The ALT test is perf ormed by an updated assay method. Please note that the reference intervals have been changed and are now sex specific. Anion gap [Moles/Vol] 6 mmol/L [place] AST [Catalytic activity/Vol] 69 U/L High 15 - 46 U/L [place] Bilirubin Ql (U) 0.5 mg/dL 0.2 - 1.3 mg/dL [place] Calcium [Mass/Vol] 10.3 mg/dL 8.4 - 10. 4 mg/dL [place] Chloride [Moles/Vol] 101 mmol/L 98 - 10 7 mmol/L [place] CO2 [Moles/Vol] 29 mmol/L 22 - 30 mmol/L [place] Creatinine [Mass/Vol] 1.09 mg/dL 0.52 - 1.25 mg/dL [place], [place] EGFR IF NonAfrican [place] 57.5 mL/min Abnormal >60 [place], [place] Comment on above: KDIGO guidelines pro [...] MDRD (S/P/Bld) [Vol rate/Area] 66.7 mL/min/{1.73_m2} >60 [place] Glucose [Mass/Vol] 122 mg/dL High 70 - 100 mg/dL [place] Interpretation and review of laboratory results Abnormal [place] Potassium [Moles/Vol] 5.7 mmol/L High 3.5 - 5.1 mmol/L [place] Protein [Mass/Vol] 7.9 g/dL 6.3 - 8.2 g/dL [place] Sodium [Moles/Vol] 137 mmol/L 135 - 145 mmol/L [place] Urea nitrogen [Mass/Vol] 48 mg/dL High 7 - 20 mg/dL [place] Hemogram (CBC) w/Auto Diffon 09-17-2020 Erythrocyte distribution width (RBC) [Ratio] 14.9 % High 11.5 - 14.5 % [place] Hematocrit (Bld) [Volume fraction] 33.9 % Low 35 - 47 % [place] Hemoglobin (Bld) [Mass/Vol] 11.4 g/dL Low 11.7 - 16 g/dL [place], [place] Interpretation and review of laboratory results Abnormal [place], [place] MCH (RBC) [Entitic mass] 29.6 pg 26 - 34 pg [place] MCHC (RBC) [Mass/Vol] 33.7 % 32 - 36 % [place], [place] MCV (RBC) [Entitic vol] 87.8 fL 79 - 98 fL [place], [place] Platelet mean volume (Bld) [Entitic vol] 7.5 fL 7.4 - 10.4 fL [place] Platelets (Bld) [#/Vol] 544 10*3/uL High 140 - 440 10*3/uL [place] RBC (Bld) [#/Vol] 3.87 10*6/uL 3.8 - 5.2 10*6/uL [place] WBC (Bld) [#/Vol] 11.0 10*3/uL High 3.6 - 10.7 10*3/uL [place] Test Performed by [facility], [address], [place], [place] [address] [place] [address] Lipaseon 09-17-2020 Lipase [Catalytic activity/Vol] 39 U/L 23 - 300 U/L [facility] Manual Differentialon 2019 Absolute Baso # 0.0 10*3/uL 0 - 0.2 10*3/uL [facility] Absolute Eos # 0.0 10*3/uL 0 - 0.5 10*3/uL [facility] Absolute Lymph # 0.8 10*3/uL Low 1.1 - 4.5 10*3/uL [facility] Absolute [place] # 0.8 10*3/uL 0.2 - 1.1 10*3/uL [facility] Absolute Neut # 9.4 10*3/uL High 2.2 - 8.2 10*3/uL [facility] Bands 1 % 0 - 3 % [facility] [place] Basophils 0 % 0 - 2 % [facility] [place] Eosinophils 0 % Low 1 - 6 % [facility] [place] Interpretation and review of laboratory results Abnormal [facility] Lymphocytes 7 % Low 20 - 40 % [facility] Monocytes 7 % 2 - 10 % [facility] [place] Myelocytes 1 % Abnormal <1 [facility] Polychromasia Slight [facility] RBC morphology finding Nom (Bld) ABNORMAL [facility] Seg Neutrophils 84 % High 40 - 80 % [facility] [place] TOTAL CELLS COUNTED 100 [facility] Test Performed by [facility], [address] [facility] Otheron 09-17-2020 Test Performed by [facility], [address] [place], [place] [address] [place] [address] [facility] POCT Glucoseon 09-17-2020 Glucose [Mass/Vol] 124 mg/dL High 70 - 100 mg/dL [facility] [place] Comment on above: Test performed by ucose meter. Results may be 10%-15% lower than serum/plasma values. (CLIA ID [id number]) Interpretation and review of laboratory results Abnormal [facility] Test Performed by [facility], [address] [place], [place] [address] [facility] [place] Troponin x1on 09-17-2020 Troponin I.cardiac [Mass/Vol] ng/mL 0 - 0.034 ng/mL [place] Comment on above: . Test Performed by [facility], [address] [place], [place] [address] [place] Urinalysison 09-17-2020 Appearance (U) Clear Clear NA [place] Comment on above: . Bilirubin Urine Negative Negative mg/dL [place] Comment on above: . Color (U) Yellow Lt. Yellow NA [place] Comment on above: . Glucose, Ur Normal Normal (<70) mg/dL [place], [place] Comment on above: . Interpretation and review of laboratory results Abnormal [place] Ketones Ql (U) Trace Abnormal Negative mg/dL [place], [place] Comment on above: . LEUKOCYTES, UA 25 Abnormal Negative Kat/uL [place] Comment on above: . Mucous Threads Few Negative /[LPF] [place] Comment on above: . Nitrite, Urine Negative Negative NA [place] Comment on above: . Occult Blood,Urine 1.0 mg/dL Abnormal Negative [place] Comment on above: . pH (U) 5.5 [pH] [place] Comment on above: . Protein (U) [Mass/Vol] 10 mg/dL Abnormal Negative [place], [place] Comment on above: . RBC (U) [#/Vol] 51-100 Abnormal 0 - 2 /[HPF] [place] Comment on above: . Specific [place], Urine 1.021 M [place], [place] Comment on above: . Squam Epithel, UA 0-2 3 - 5 /[HPF] [place] Comment on above: . Urobilinogen, Urine Normal Normal (0-1) mg/dL [place] Comment on above: . WBC, UA 0-2 0 - 5 /[HPF] [place] Comment on above: . Test Performed by [facility], [address] [place], [place] [address] [place] Basic Metabolic Panelon 12-10 Calcium [Mass/Vol] 9.9 mg/dL Normal 8.4-10.4 [facility] Comment on above: Performed By: #### B GLU #### [facility] [address], [place] Glucose [Mass/Vol] 404 mg/dL High 70-100 [facility] Comment on above: Performed By: #### B GLU #### [facility] [address], [place] Anion gap [Moles/Vol] 13 Normal [facility] Comment on above: Performed By: #### B GLU #### [place] [address] [address], [place] CO2 [Moles/Vol] 28 mmol/L Normal 22-30 [facility] Comment on above: Performed By: #### B GLU #### [place] [address] [address], [place] Creatinine [Mass/Vol] 0.95 mg/dL Normal 0.52-1.25 [facility] Comment on above: Performed By: #### B GLU #### [facility] [address], [place] GFR/1.73 sq M predicted among blacks MDRD (S/P/Bld) [Vol rate/Area] mL/min/{1.73_m2} Normal >60 [facility] Comment on above: Performed By: #### B GLU #### [facility] [address], [place] GFR/1.73 sq M predicted among non-blacks MDRD (S/P/Bld) [Vol rate/Area] mL/min/{1.73_m2} Normal >60 [facility] Comment on above: Result Comment: Sour ce- MDRD equation with creatinine calibration to IDMS(NKDEP) eGFR not recommended for drug dose adjustment Performed By: #### B GLU #### [facility] [facility] [address], [place] Urea nitrogen [Mass/Vol] 23 mg/dL High 7-20 [facility] Comment on above: Performed By: #### B GLU #### [place] [address], [place] Chloride [Moles/Vol] 94 mmol/L Low 98-107 [facility] Comment on above: Performed By: #### B GLU #### [facility] [address], [place] Potassium [Moles/Vol] 4.8 mmol/L Normal 3.5-5.1 [facility] Comment on above: Performed By: #### B GLU #### [facility] [address], [place] Sodium [Moles/Vol] 135 mmol/L Normal 135-145 [facility] Comment on above: Performed By: #### B GLU #### [facility] [address], [place] Basic Metabolic Panel w/ Ref kaye to MGon 01-02-2020 Anion gap [Moles/Vol] 13 mmol/L [place], [place] Calcium [Mass/Vol] 9.9 mg/dL 8.4 - 10. 4 mg/dL [place], [place] Chloride [Moles/Vol] 94 mmol/L Low 98 - 10 7 mmol/L [place] CO2 [Moles/Vol] 28 mmol/L 22 - 30 mmol/L [place] Creatinine [Mass/Vol] 0.95 mg/dL 0.52 - 1.25 mg/dL [place], [place] EGFR IF NonAfrican [place] >60.0 >60 mL/min [place], [place] Comment on above: Source- MDRD equatio n with creatinine calibration to IDMS(NKDEP) eGFR not recommended for drug dose adjustment GFR/1.73 sq M predicted among blacks MDRD (S/P/Bld) [Vol rate/Area] mL/min/{1.73_m2} >60 mL/min [place], [place] Glucose [Mass/Vol] 404 mg/dL High 70 - 100 mg/dL [place], [place] Interpretation and review of laboratory results Abnormal [place], [place] Potassium [Moles/Vol] 4.8 mmol/L 3.5 - 5.1 mmol/L [facility] [place], [place] Sodium [Moles/Vol] 135 mmol/L 135 - 145 mmol/L [facility], [place] Urea nitrogen [Mass/Vol] 23 mg/dL High 7 - 20 mg/dL [facility], [place] Test Performed by [facility], [address] [place] [address] [facility], [place] Hemoglobin AND Hematocriton 01-02-2020 Hematocrit (Bld) [Volume fraction] 40.5 % Normal 35.0-47.0 [facility] Comment on above: Performed By: #### B GLU #### [facility] [address] [place] [address] Hemoglobin (Bld) [Mass/Vol] 13.5 g/dL Normal 11.7-16.0 [facility] Comment on above: Performed By: #### B GLU #### [facility] [address] [place] [address] Hemoglobin and Hematocrit, B loodon 01-02-2020 Hematocrit (Bld) [Volume fraction] 40.5 % 35 - 47 % [facility] Hemoglobin (Bld) [Mass/Vol] 13.5 g/dL 11.7 - 16 g/dL [facility], [place] Test Performed by [facility], [address] [place] [address] [facility], [place] Add On Lab Teston 06-27-2019 Sodium [Moles/Vol] Accepted [facility], [place] Comment on above: Specimen available & acceptable for analysis. Test Performed by [facility], [address] [place] [address], [place] C-Reactive Proteinon 019 CRP [Mass/Vol] 45.5 mg/L High 0 - 6 mg/L [facility], [place] Comment on above: . Interpretation and review of laboratory results Abnormal [facility], [place] Test Performed by [facility], [address] [place], [address], [place] Sedimentation Rateon 019 Interpretation and review of laboratory results Abnormal [facility], [place] Sed Rate 130 mm/h High 0 - 20 mm/h [facility], [place] Test Performed by [facility], [address], [place], [place] [address] [place], [place] Comprehensive Metabolic Pane gigi 06-26-2019 Albumin [Mass/Vol] 3.6 g/dL 3.5 - 5 g/dL [place] ALP [Catalytic activity/Vol] 165 U/L High 38 - 126 U/L [place] ALT [Catalytic activity/Vol] 37 U/L 13 - 69 U/L [place] Anion gap [Moles/Vol] 9 mmol/L [place], [place] AST [Catalytic activity/Vol] 21 U/L 15 - 46 U/L [place], [place] Bilirubin Ql (U) 0.5 mg/dL 0.2 - 1.3 mg/dL [place] Calcium [Mass/Vol] 8.8 mg/dL 8.4 - 10. 4 mg/dL [place] Chloride [Moles/Vol] 102 mmol/L 98 - 10 7 mmol/L [place] CO2 [Moles/Vol] 26 mmol/L 22 - 30 mmol/L [place] Creatinine [Mass/Vol] 1.06 mg/dL 0.52 - 1.25 mg/dL [place], [place] EGFR IF NonAfrican [place] 54.3 mL/min >60 [place], [place] Comment on above: Source- MDRD equatio n with creatinine calibration to IDMS(NKDEP) eGFR not recommended for drug dose adjustment GFR/1.73 sq M predicted among blacks MDRD (S/P/Bld) [Vol rate/Area] mL/min/{1.73_m2} >60 mL/min [place] Glucose [Mass/Vol] 156 mg/dL High 70 - 100 mg/dL [place], [place] Interpretation and review of laboratory results Abnormal [place], [place] Potassium [Moles/Vol] 4.5 mmol/L 3.5 - 5.1 mmol/L [place] Protein [Mass/Vol] 6.9 g/dL 6.3 - 8.2 g/dL [place], [place] Sodium [Moles/Vol] 137 mmol/L 135 - 145 mmol/L [place], [place] Urea nitrogen [Mass/Vol] 28 mg/dL High 7 - 20 mg/dL [place] Test Performed by [facility], [address], [place], [place] [address] [place], [place] Hemogram (CBC) w/Auto Diffon 06-26-2019 Absolute Baso # 0.1 10*3/uL 0 - 0.2 10*3/uL [place], [place] Absolute Neut # 5.3 10*3/uL 1.8 - 7 10*3/uL [place], [place] Basophils/100 WBC (Bld) 0.7 % 0 - 2 % [place], [place] Eosinophils (Bld) [#/Vol] 0.2 10*3/uL 0 - 0.5 10*3/uL [place], [place] Eosinophils/100 WBC (Bld) 2.0 % 1 - 6 % [place] Erythrocyte distribution width (RBC) [Ratio] 21.5 % High 11.5 - 14.5 % [place], [place] Granulocytes/100 WBC (Bld) 65.6 % 40 - 80 % [place] Hematocrit (Bld) [Volume fraction] 22.8 % Low 35 - 47 % [place] Hemoglobin (Bld) [Mass/Vol] 7.3 g/dL Low 11.7 - 16 g/dL [place], [place] Interpretation and review of laboratory results Abnormal [place] Lymphocytes (Bld) [#/Vol] 1.8 10*3/uL 1 - 4.3 10*3/uL [place], [place] Lymphocytes/100 WBC (Bld) 21.6 % 20 - 40 % [place] MCH (RBC) [Entitic mass] 23.8 pg Low 26 - 34 pg [place], [place] MCHC (RBC) [Mass/Vol] 32.0 % 32 - 36 % [place], [place] MCV (RBC) [Entitic vol] 74.3 fL Low 79 - 98 fL [place], [place] Monocytes (Bld) [#/Vol] 0.8 10*3/uL 0 - 0.8 10*3/uL [place], [place] Monocytes/100 WBC (Bld) 10.1 % High 2 - 10 % [place], [place] Platelet mean volume (Bld) [Entitic vol] 6.7 fL Low 7.4 - 10.4 fL [place], [place] Platelets (Bld) [#/Vol] 540 10*3/uL High 140 - 440 10*3/uL [facility], [place] RBC (Bld) [#/Vol] 3.07 10*6/uL Low 3.8 - 5.2 10*6/uL [place] WBC (Bld) [#/Vol] 8.1 10*3/uL 3.6 - 10.7 10*3/uL [place] Test Performed by [facility], [address] [place], [place] [id number] [place] [address] Lactic Acid, Plasmaon 2018 Lactate [Moles/Vol] 1.7 mmol/L 0.7 - 2 mmol/L [place] Test Performed by [facility], [address] [place] [address] [place], [place] Metabolic Panelon 06-26-2019 Sodium [Moles/Vol] Slight [facility], [place] Otheron 06-26-2019 Test Performed by [facility], [address] [place] [address] [place] RBC MORPHOLOGYon 06-26-2019 Anisocytosis Ql (Bld) Slight [place], [place] Basophilic stippling LM Ql (Bld) Slight [facility], [place] RBC morphology finding Nom (Bld) ABNORMAL [place] Sodium [Moles/Vol] Moderate [facility], [place] TYPE AND SCREENon 06-26-2019 Sodium [Moles/Vol] Positive [place], [place] Comment on above: Test Performed by [facility], [address] [place] [address] Sodium [Moles/Vol] Negative [place], [place] Comment on above: Test Performed by [facility], [address] [place], [place] [address] Sodium [Moles/Vol] O [facility], [place] XR FEMUR RIGHT (MIN 2 VIEWS) on 06-26-2019 Patient Name: WILL ALVARADO ---Diagnostic Radiology--- Exam Date/Time 06/26/2019 22:31:46 EDT Exam CR Femur 2+ Views Right n Ordering Physician KELLEY ELLIOTT TAYLOR Accession Number [id number] CPT4 Codes 62266 () Reason For Exam right AKA wound drainage, swelling, erythema and warmth Report RIGHT FEMUR TWO VIEWS CLINICAL INDICATION: right AKA wound drainage, swelling, erythema and warmth TECHNIQUE: Two views of the right femur. COMPARISON: 06/14/2019 FINDINGS: Status post recent ifgjl-wme-[id number] amputation. Overlying soft tissue swelling and skin boo. No obvious acute bone destruction. IMPRESSION: 1. Soft tissue swelling and skin boo overlie the operative site. No obvious bone destruction. Report Dictated on --- Final --- Dictating Physician: MD UGALDE JOHN R Signed Date and Time: 06/26/2019 10:34 pm Signed by: MD UGALDE JOHN R Transcribed Date and Time: 06/26/2019 10:35 [place], [place] Robert, [facility] Incoming Radiology Results From [facility] - 06/26/2019 10:36 PM EDT Patient Name: WILL JACINTO ---Diagnostic Radiology--- Exam Date/Time 06/26/2019 22:31:46 EDT Exam CR Femur 2+ Views Right n Ordering Physician KELLEY ELLIOTT TAYLOR Accession Number [id number] CPT4 Codes 56658 () Reason For Exam right AKA wound drainage, swelling, erythema and warmth Report RIGHT FEMUR TWO VIEWS CLINICAL INDICATION: right AKA wound drainage, swelling, erythema and warmth TECHNIQUE: Two views of the right femur. COMPARISON: 06/14/2019 FINDINGS: Status post recent iyfba-[id number] amputation. Overlying soft tissue swelling and skin boo. No obvious acute bone destruction. IMPRESSION: 1. Soft tissue swelling and skin boo overlie the operative site. No obvious bone destruction. Report Dictated on --- Final --- Dictating Physician: MD TRAM, JAVY Doshi Signed Date and Time: 06/26/2019 10:34 pm Signed by: MD UGALDE JOHN R Transcribed Date and Time: 06/26/2019 10:35 [place] Comprehensive Metabolic Pane l w/ Reflex to MGon 06-20-2019 Albumin [Mass/Vol] 3.4 g/dL Low 3.5 - 5 g/dL [place] ALP [Catalytic activity/Vol] 124 U/L 38 - 126 U/L [place] ALT [Catalytic activity/Vol] 57 U/L 13 - 69 U/L [place] Anion gap [Moles/Vol] 7 mmol/L [place], [place] AST [Catalytic activity/Vol] 62 U/L High 15 - 46 U/L [place] Bilirubin Ql (U) 0.4 mg/dL 0.2 - 1.3 mg/dL [place], [place] Calcium [Mass/Vol] 8.9 mg/dL 8.4 - 10. 4 mg/dL [place] Chloride [Moles/Vol] 105 mmol/L 98 - 10 7 mmol/L [place] CO2 [Moles/Vol] 26 mmol/L 22 - 30 mmol/L [place] Creatinine [Mass/Vol] 1.18 mg/dL 0.52 - 1.25 mg/dL [place], [place] EGFR IF NonAfrican [place] 48.0 mL/min >60 [place], [place] Comment on above: Source- MDRD equatio n with creatinine calibration to IDVT(NKDEP) eGFR not recommended for drug dose adjustment GFR/1.73 sq M predicted among blacks MDRD (S/P/Bld) [Vol rate/Area] 58.1 mL/min/{1.73_m2} >60 [place], [place] Glucose [Mass/Vol] 85 mg/dL 70 - 100 mg/dL [place] Interpretation and review of laboratory results Abnormal [place], [place] Potassium [Moles/Vol] 4.6 mmol/L 3.5 - 5.1 mmol/L [place] Protein [Mass/Vol] 6.4 g/dL 6.3 - 8.2 g/dL [place], [place] Sodium [Moles/Vol] 139 mmol/L 135 - 145 mmol/L [place], [place] Urea nitrogen [Mass/Vol] 30 mg/dL High 7 - 20 mg/dL [place] Test Performed by [facility], [facility] [place] [address] [place], [place] Culture, Aerobic Bacteria wi th Gram Staion 06-20-2019 Aerobic Culture Many CARBAPENEMASE GENE DETECTION BY PCR VIM gene DETECTED IMP gene Not Detected NDM gene Not Detected KPC gene Not Detected OXA48 gene Not Detected The targets listed above are genes that may confer resistance to the carbapenems. Methodology: Real-time PCR (Cask) [place], [place] Aerobic Culture Pseudomonas aeruginosa Abnormal [place], [place] Aerobic Culture Mixed enteric dorinda present. Abnormal [place], [place] INR Coag (Bld) [Relative time] Moderate polymorphonuclear cells/lpf. Moderate gram positive cocci. Moderate gram negative bacilli. [place] Interpretation and review of laboratory results Abnormal [place] Test Performed by [facility], [facility] [place] [address] [place], [place] POCT Glucoseon 06-20-2019 Glucose [Mass/Vol] 206 mg/dL High 70 - 100 mg/dL [place], [place] Comment on above: Test performed by ucose meter. Results may be 10%-15% lower than serum/plasma values. (CLIA ID [id number]) Interpretation and review of laboratory results Abnormal [place] Test Performed by [facility], [address] [place] [address] [place], [place] Glucose [Mass/Vol] 200 mg/dL High 70 - 100 mg/dL [place], [place] Comment on above: Test performed by gl ucose meter. Results may be 10%-15% lower than serum/plasma values. (CLIA ID [id number]) Interpretation and review of laboratory results Abnormal [place] Test Performed by [facility], [address] [place] [address] [place], [place] Glucose [Mass/Vol] 189 mg/dL High 70 - 100 mg/dL [place], [place] Comment on above: Test performed by gl ucose meter. Results may be 10%-15% lower than serum/plasma values. (CLIA ID [id number]) Interpretation and review of laboratory results Abnormal [place] Test Performed by [facility], [address] [place] [address] [place], [place] Surgical Pathologyon 019 Sodium [Moles/Vol] SEE BELOW [place], [place] [phone] [id number] [facility] PATHOLOGY AND LABORATORY MEDICINE [address] [place] [address] FINAL SURGICAL PATHOLOGY REPORT NAME: WILL JACINTO : 1965 53 Y F [facility] NO.: [id number] LOCATION: I 6125 01 PROCEDURE 06/16/2019 DATE: SURGEON: SERGIO PISANO M.D. RECEIVED 06/17/2019 DATE: ATTENDING: JAYESH JORDAN MD REPORT DATE: 06/20/2019 COPIES TO: DIAGNOSIS: LEG, RIGHT ABOVE THE KNEE AMPUTATION - SKIN WITH ULCERATION AND NECROTIZING ACUTE INFLAMMATION OF SOFT TISSUE OF THE FOOT. 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 MILD CALCIFIC ATHEROSCLEROSIS. [place] Signature> ALLEN JERRY M.D. CLINICAL INFORMATION: Not [...] characteristics determined by the clinical laboratories of [facility]. They have not been cleared by [...] negativity on decalcified specimens. Professional Performing Location: [place] [address]. DEPARTMENT OF PATHOLOGY AND LABORATORY MEDICINE [place], [place] [address] [place], [place] Anaerobic Cultureon 06-19-20 19 Anaerobic Culture Many [place], [place] Anaerobic Culture Positive Abnormal [place] Interpretation and review of laboratory results Abnormal [place] Test Performed by [facility], [address] [place] [address], [place] [address] [place] Comprehensive Metabolic Pane l w/ Reflex to MGon 06-19-2019 Albumin [Mass/Vol] 3.6 g/dL 3.5 - 5 g/dL [place] ALP [Catalytic activity/Vol] 126 U/L 38 - 126 U/L [place] ALT [Catalytic activity/Vol] 54 U/L 13 - 69 U/L [place] Anion gap [Moles/Vol] 10 mmol/L [place], [place] AST [Catalytic activity/Vol] 71 U/L High 15 - 46 U/L [place], [place] Bilirubin Ql (U) 0.6 mg/dL 0.2 - 1.3 mg/dL [place] Calcium [Mass/Vol] 9.0 mg/dL 8.4 - 10. 4 mg/dL [place], [place] Chloride [Moles/Vol] 101 mmol/L 98 - 10 7 mmol/L [place] CO2 [Moles/Vol] 24 mmol/L 22 - 30 mmol/L [place] Creatinine [Mass/Vol] 1.67 mg/dL High 0.52 - 1.25 mg/dL [place], [place] EGFR IF NonAfrican [place] 32.1 mL/min >60 [place], [place] Comment on above: Source- MDRD equatio n with creatinine calibration to IDMS(NKDEP) eGFR not recommended for drug dose adjustment GFR/1.73 sq M predicted among blacks MDRD (S/P/Bld) [Vol rate/Area] 38.9 mL/min/{1.73_m2} >60 [place] Glucose [Mass/Vol] 180 mg/dL High 70 - 100 mg/dL [place] Interpretation and review of laboratory results Abnormal [place], [place] Potassium [Moles/Vol] 5.7 mmol/L High 3.5 - 5.1 mmol/L [place] Protein [Mass/Vol] 6.8 g/dL 6.3 - 8.2 g/dL [place], [place] Sodium [Moles/Vol] 135 mmol/L 135 - 145 mmol/L [place], [place] Urea nitrogen [Mass/Vol] 33 mg/dL High 7 - 20 mg/dL [facility] Test Performed by [facility], [facility] [place] [address] [place], [place] Otheron 06-19-2019 Blood Culture, Routine No growth at 5 days. [facility] Test Performed by [facility], [address] [place] [id number] Specimen Source Comment:Blood [facility] POCT Glucoseon 06-19-2019 Glucose [Mass/Vol] 135 mg/dL High 70 - 100 mg/dL [place], [place] Comment on above: Test performed by gl ucose meter. Results may be 10%-15% lower than serum/plasma values. (CLIA ID [id number]) Interpretation and review of laboratory results Abnormal [facility], [place] Test Performed by [facility], [facility] [place] [address] [place], [place] Glucose [Mass/Vol] 219 mg/dL High 70 - 100 mg/dL [place] Comment on above: Test performed by gl ucose meter. Results may be 10%-15% lower than serum/plasma values. (CLIA ID [id number]) Interpretation and review of laboratory results Abnormal [facility], [place] Test Performed by [facility], [facility] [place] [address] [place] Glucose [Mass/Vol] 222 mg/dL High 70 - 100 mg/dL [place] Comment on above: Test performed by gl ucose meter. Results may be 10%-15% lower than serum/plasma values. (CLIA ID [id number]) Interpretation and review of laboratory results Abnormal [facility], [place] Test Performed by [facility], [facility] [place] [address] [place] Procalcitoninon 06-19-2019 Interpretation and review of laboratory results Abnormal [place] Procalcitonin 0.32 ng/mL Abnormal <0.10 [place] Sodium [Moles/Vol] See Below [place], [place] Comment on above: PCT <0.50 = Low risk of severe sepsis and/or septic shock. PCT >2.00 = High risk of severe sepsis and/or septic shock. Test Performed by [facility], [address] [place] [address] [place] Comprehensive Metabolic Pane l w/ Reflex to MGon 06-18-2019 Albumin [Mass/Vol] 3.3 g/dL Low 3.5 - 5 g/dL [place] ALP [Catalytic activity/Vol] 94 U/L 38 - 126 U/L [place] ALT [Catalytic activity/Vol] 44 U/L 13 - 69 U/L [place] Anion gap [Moles/Vol] 10 mmol/L [place], [place] AST [Catalytic activity/Vol] 48 U/L High 15 - 46 U/L [place] Bilirubin Ql (U) 0.5 mg/dL 0.2 - 1.3 mg/dL [place] Calcium [Mass/Vol] 8.7 mg/dL 8.4 - 10. 4 mg/dL [place] Chloride [Moles/Vol] 100 mmol/L 98 - 10 7 mmol/L [place] CO2 [Moles/Vol] 26 mmol/L 22 - 30 mmol/L [place] Creatinine [Mass/Vol] 1.53 mg/dL High 0.52 - 1.25 mg/dL [place] EGFR IF NonAfrican [place] 35.6 mL/min >60 [place] Comment on above: Source- MDRD equatio n with creatinine calibration to IDMS(NKDEP) eGFR not recommended for drug dose adjustment GFR/1.73 sq M predicted among blacks MDRD (S/P/Bld) [Vol rate/Area] 43.1 mL/min/{1.73_m2} >60 [place] Glucose [Mass/Vol] 108 mg/dL High 70 - 100 mg/dL [place] Interpretation and review of laboratory results Abnormal [facility] Potassium [Moles/Vol] 4.2 mmol/L 3.5 - 5.1 mmol/L [place] Protein [Mass/Vol] 6.1 g/dL Low 6.3 - 8.2 g/dL [place] Sodium [Moles/Vol] 135 mmol/L 135 - 145 mmol/L [place] Urea nitrogen [Mass/Vol] 29 mg/dL High 7 - 20 mg/dL [place] Test Performed by [facility], [facility] [place] [address] [place], [place] POCT Glucoseon 06-18-2019 Glucose [Mass/Vol] 189 mg/dL High 70 - 100 mg/dL [place] Comment on above: Test performed by gl ucose meter. Results may be 10%-15% lower than serum/plasma values. (CLIA ID [id number]) Interpretation and review of laboratory results Abnormal [facility] Test Performed by [facility], [facility] [place] [address] [place] Glucose [Mass/Vol] 207 mg/dL High 70 - 100 mg/dL [place] Comment on above: Test performed by gl ucose meter. Results may be 10%-15% lower than serum/plasma values. (CLIA ID [id number]) Interpretation and review of laboratory results Abnormal [facility] Test Performed by [facility], [facility] [place] [address] [place] Glucose [Mass/Vol] 206 mg/dL High 70 - 100 mg/dL [place] Comment on above: Test performed by gl ucose meter. Results may be 10%-15% lower than serum/plasma values. (CLIA ID [id number]) Interpretation and review of laboratory results Abnormal [facility], [place] Test Performed by [facility], [address], [place] [address] [place] [address] Glucose [Mass/Vol] 156 mg/dL High 70 - 100 mg/dL [place] Comment on above: Test performed by gl ucose meter. Results may be 10%-15% lower than serum/plasma values. (CLIA ID [id number]) Interpretation and review of laboratory results Abnormal [place] Test Performed by [facility], [facility] [place], [place] [address] [place] [address] CBCon 06-17-2019 Erythrocyte distribution width (RBC) [Ratio] 22.4 % High 11.5 - 14.5 % [place] Hematocrit (Bld) [Volume fraction] 24.8 % Low 35 - 47 % [place] Hemoglobin (Bld) [Mass/Vol] 7.6 g/dL Low 11.7 - 16 g/dL [place] Interpretation and review of laboratory results Abnormal [place] MCH (RBC) [Entitic mass] 23.3 pg Low 26 - 34 pg [place] MCHC (RBC) [Mass/Vol] 30.7 % Low 32 - 36 % [place] MCV (RBC) [Entitic vol] 76.1 fL Low 79 - 98 fL [place], [place] Platelet mean volume (Bld) [Entitic vol] 7.8 fL 7.4 - 10.4 fL [place] Platelets (Bld) [#/Vol] 403 10*3/uL 140 - 440 10*3/uL [place] RBC (Bld) [#/Vol] 3.26 10*6/uL Low 3.8 - 5.2 10*6/uL [place] WBC (Bld) [#/Vol] 13.3 10*3/uL High 3.6 - 10.7 10*3/uL [place] Test Performed by [facility], [facility] [address] Comprehensive Metabolic Pane l w/ Reflex to MGon 06-17-2019 Albumin [Mass/Vol] 3.7 g/dL 3.5 - 5 g/dL [place] ALP [Catalytic activity/Vol] 121 U/L 38 - 126 U/L [place] ALT [Catalytic activity/Vol] 30 U/L 13 - 69 U/L [place] Anion gap [Moles/Vol] 14 mmol/L [place] AST [Catalytic activity/Vol] 34 U/L 15 - 46 U/L [place] Bilirubin Ql (U) 0.7 mg/dL 0.2 - 1.3 mg/dL [place] Calcium [Mass/Vol] 8.5 mg/dL 8.4 - 10. 4 mg/dL [place] Chloride [Moles/Vol] 98 mmol/L 98 - 10 7 mmol/L [place] CO2 [Moles/Vol] 21 mmol/L Low 22 - 30 mmol/L [place] Creatinine [Mass/Vol] 0.94 mg/dL 0.52 - 1.25 mg/dL [place] EGFR IF NonAfrican [place] >60.0 >60 mL/min [place] Comment on above: Source- MDRD equatio n with creatinine calibration to IDMS(NKDEP) eGFR not recommended for drug dose adjustment GFR/1.73 sq M predicted among blacks MDRD (S/P/Bld) [Vol rate/Area] mL/min/{1.73_m2} >60 mL/min [place] Glucose [Mass/Vol] 399 mg/dL High 70 - 100 mg/dL [place] Comment on above: repeated Interpretation and review of laboratory results Abnormal [place] Potassium [Moles/Vol] 5.3 mmol/L High 3.5 - 5.1 mmol/L [place] Protein [Mass/Vol] 6.6 g/dL 6.3 - 8.2 g/dL [place] Sodium [Moles/Vol] 134 mmol/L Low 135 - 145 mmol/L [place] Urea nitrogen [Mass/Vol] 25 mg/dL High 7 - 20 mg/dL [place] Test Performed by [facility] [address] [address] [place] Hematologyon 06-17-2019 ABO and Rh group Nom (Bld) 5100 [place] Metabolic Panelon 06-17-2019 Sodium [Moles/Vol] [id number] [place] Sodium [Moles/Vol] released [place] POCT Glucoseon 06-17-2019 Glucose [Mass/Vol] 305 mg/dL High 70 - 100 mg/dL [place] Comment on above: Test performed by gl ucose meter. Results may be 10%-15% lower than serum/plasma values. (CLIA ID [id number]) Interpretation and review of laboratory results Abnormal [place] Test Performed by [facility], [address] [place] [id number] [place] [address] Glucose [Mass/Vol] 373 mg/dL High 70 - 100 mg/dL [place] Comment on above: Test performed by gl ucose meter. Results may be 10%-15% lower than serum/plasma values. (CLIA ID [id number]) Interpretation and review of laboratory results Abnormal [place] Test Performed by [id number] [place] [address] Glucose [Mass/Vol] 477 mg/dL High 70 - 100 mg/dL [place] Comment on above: Test performed by gl ucose meter. Results may be 10%-15% lower than serum/plasma values. (CLIA ID [id number]) Interpretation and review of laboratory results Abnormal [place], [place] Test Performed by [facility], [facility] [place] [address] [place], [place] PREPARE RBC (CROSSMATCH)on 0 06-17-2019 Blood product unit ID (Dose) [#] [id number] [place], [place] Blood product unit ID (Dose) [#] [id number] [place], [place] Sodium [Moles/Vol] [id number] mmol/L [place], [place] Sodium [Moles/Vol] [id number] mmol/L [place], [place] Potassiumon 06-17-2019 Interpretation and review of laboratory results Abnormal [place], [place] Potassium [Moles/Vol] 5.4 mmol/L High 3.5 - 5.1 mmol/L [place] Test Performed by [facility], [address] [place] [address] [place], [place] Procalcitoninon 06-17-2019 Interpretation and review of laboratory results Abnormal [place], [place] Procalcitonin 0.11 ng/mL Abnormal <0.10 [place], [place] Sodium [Moles/Vol] See Below [place], [place] Comment on above: PCT <0.50 = Low risk of severe sepsis and/or septic shock. PCT >2.00 = High risk of severe sepsis and/or septic shock. Test Performed by [facility], [address] [place] [address] [place], [place] Albuminon 06-16-2019 Albumin [Mass/Vol] 3.9 g/dL 3.5 - 5 g/dL [place], [place] Test Performed by [facility], [facility] [place] [address] [place], [place] CBCon 06-16-2019 Erythrocyte distribution width (RBC) [Ratio] 22.9 % High 11.5 - 14.5 % [place], [place] Hematocrit (Bld) [Volume fraction] 28.2 % Low 35 - 47 % [place], [place] Hemoglobin (Bld) [Mass/Vol] 8.8 g/dL Low 11.7 - 16 g/dL [place], [place] Interpretation and review of laboratory results Abnormal [place], [place] MCH (RBC) [Entitic mass] 23.8 pg Low 26 - 34 pg [place], [place] MCHC (RBC) [Mass/Vol] 31.2 % Low 32 - 36 % [place], [place] MCV (RBC) [Entitic vol] 76.0 fL Low 79 - 98 fL [place], [place] Platelet mean volume (Bld) [Entitic vol] 7.7 fL 7.4 - 10.4 fL [place], [place] Platelets (Bld) [#/Vol] 372 10*3/uL 140 - 440 10*3/uL [place], [place] RBC (Bld) [#/Vol] 3.71 10*6/uL Low 3.8 - 5.2 10*6/uL [place], [place] WBC (Bld) [#/Vol] 6.7 10*3/uL 3.6 - 10.7 10*3/uL [place] Test Performed by [facility], [address] [place] [address] [place], [place] Erythrocyte distribution width (RBC) [Ratio] disregard Critically abnormal 11.5 - 14.5 % [place], [place] Comment on above: CORRECTED RESULT...P revious above value was 23.2, verified on 06/16/19 at 04:45 by LRB . Hematocrit (Bld) [Volume fraction] disregard Critically abnormal 35 - 47 % [place], [place] Comment on above: CORRECTED RESULT...P revious above value was 30.2, verified on 06/16/19 at 04:45 by LRB . Hemoglobin (Bld) [Mass/Vol] disregard Critically abnormal 11.7 - 16 g/dL [place], [place] Comment on above: CORRECTED RESULT...P revious above value was 9.3, verified on 06/16/19 at 04:45 by LRB . Interpretation and review of laboratory results Abnormal [place], [place] MCH (RBC) [Entitic mass] disregard Critically abnormal 26 - 34 pg [place], [place] Comment on above: CORRECTED RESULT...P revious above value was 23.4, verified on 06/16/19 at 04:45 by LRB . MCHC (RBC) [Mass/Vol] disregard Critically abnormal 32 - 36 % [place], [place] Comment on above: CORRECTED RESULT...P revious above value was 30.8, verified on 06/16/19 at 04:45 by LRB . MCV (RBC) [Entitic vol] disregard Critical ly abnormal 79 - 98 fL [place], [place] Comment on above: CORRECTED RESULT...P revious above value was 75.8, verified on 06/16/19 at 04:45 by LRB . RBC (Bld) [#/Vol] disregard Critically abnormal 3.8 - 5.2 10*6/uL [place], [place] Comment on above: CORRECTED RESULT...P revious above value was 3.98, verified on 06/16/19 at 04:45 by LRB . WBC (Bld) [#/Vol] disregard Critically abnormal 3.6 - 10.7 10*3/uL [place], [place] Comment on above: CORRECTED RESULT...P revious above value was 3.7, verified on 06/16/19 at 04:45 by LRB . Test Performed by [facility], [address] [place] [address] [place], [place] Comprehensive Metabolic Pane l w/ Reflex to MGon 06-16-2019 Albumin [Mass/Vol] 3.5 g/dL 3.5 - 5 g/dL [place], [place] ALP [Catalytic activity/Vol] 167 U/L High 38 - 126 U/L [place], [place] ALT [Catalytic activity/Vol] 28 U/L 13 - 69 U/L [place], [place] Anion gap [Moles/Vol] 11 mmol/L [place], [place] AST [Catalytic activity/Vol] 29 U/L 15 - 46 U/L [place], [place] Bilirubin Ql (U) 0.7 mg/dL 0.2 - 1.3 mg/dL [place], [place] Calcium [Mass/Vol] 8.6 mg/dL 8.4 - 10. 4 mg/dL [place], [place] Chloride [Moles/Vol] 98 mmol/L 98 - 10 7 mmol/L [place], [place] CO2 [Moles/Vol] 23 mmol/L 22 - 30 mmol/L [place], [place] Creatinine [Mass/Vol] 0.87 mg/dL 0.52 - 1.25 mg/dL [place], [place] EGFR IF NonAfrican [place] >60.0 >60 mL/min [place], [place] Comment on above: Source- MDRD equatio n with creatinine calibration to IDMS(NKDEP) eGFR not recommended for drug dose adjustment GFR/1.73 sq M predicted among blacks MDRD (S/P/Bld) [Vol rate/Area] mL/min/{1.73_m2} >60 mL/min [place], [place] Glucose [Mass/Vol] 385 mg/dL High 70 - 100 mg/dL [place], [place] Interpretation and review of laboratory results Abnormal [place], [place] Potassium [Moles/Vol] 4.9 mmol/L 3.5 - 5.1 mmol/L [place], [place] Protein [Mass/Vol] 6.5 g/dL 6.3 - 8.2 g/dL [place], [place] Sodium [Moles/Vol] 131 mmol/L Low 135 - 145 mmol/L [place], [place] Urea nitrogen [Mass/Vol] 31 mg/dL High 7 - 20 mg/dL [place], [place] Test Performed by [facility], [facility] [employer] [place] [place], [place] [id number] [place] [address] Hemoglobin A1Con 06-16-2019 eAG 240 mg/dL [place], [place] HbA1c (Bld) [Mass fraction] 10.0 % High 4 - 5.7 % [place], [place] Comment on above: --HgbA1C levels may not be accurate in patients who have renal disease, received recent blood transfusions, are anemic, or who have dyshemoglobinemia. Interpretation and review of laboratory results Abnormal [place], [place] Test Performed by [facility], [facility] [place] [address] [place], [place] POCT Glucoseon 06-16-2019 Glucose [Mass/Vol] 386 mg/dL High 70 - 100 mg/dL [place], [place] Comment on above: Test performed by gl ucose meter. Results may be 10%-15% lower than serum/plasma values. (CLIA ID [id number]) Interpretation and review of laboratory results Abnormal [place], [place] Test Performed by [facility], [facility] [place] [address] [place], [place] Glucose [Mass/Vol] 287 mg/dL High 70 - 100 mg/dL [place], [place] Comment on above: Test performed by gl ucose meter. Results may be 10%-15% lower than serum/plasma values. (CLIA ID [id number]) Interpretation and review of laboratory results Abnormal [facility], [place] Test Performed by [facility], [facility] [place] [address] [facility]- [place], [place] Glucose [Mass/Vol] 285 mg/dL High 70 - 100 mg/dL [facility]- [place], [place] Comment on above: Test performed by gl ucose meter. Results may be 10%-15% lower than serum/plasma values. (CLIA ID [id number]) Interpretation and review of laboratory results Abnormal [facility], [place] Test Performed by [facility], [facility] [place] [address] [facility] [place], [place] Glucose [Mass/Vol] 431 mg/dL High 70 - 100 mg/dL [facility] [place], [place] Comment on above: Test performed by gl ucose meter. Results may be 10%-15% lower than serum/plasma values. (CLIA ID [id number]) Interpretation and review of laboratory results Abnormal [employer] [facility]- [place] Test Performed by [facility] [facility], [facility] [place] [address] [facility], [place] Glucose [Mass/Vol] 431 mg/dL High 70 - 100 mg/dL [facility] [place], [place] Comment on above: Test performed by gl ucose meter. Results may be 10%-15% lower than serum/plasma values. (CLIA ID [id number]) Interpretation and review of laboratory results Abnormal [place], [place] Test Performed by [employer] [facility], [facility] [place] [address] [facility] [place], [place] Vancomycin, Troughon 019 Vancomycin Tr 17.1 ug/mL 15 - 20 ug/mL [facility], [place] Comment on above: . Test Performed by [facility] [facility], [facility] [place] [address] [facility], [place] CBCon 06-15-2019 Erythrocyte distribution width (RBC) [Ratio] 22.9 % High 11.5 - 14.5 % [facility] [place] Hematocrit (Bld) [Volume fraction] 27.2 % Low 35 - 47 % [place], [place] Hemoglobin (Bld) [Mass/Vol] 8.8 g/dL Low 11.7 - 16 g/dL [place], [place] Interpretation and review of laboratory results Abnormal [place], [place] MCH (RBC) [Entitic mass] 24.1 pg Low 26 - 34 pg [place], [place] MCHC (RBC) [Mass/Vol] 32.2 % 32 - 36 % [place] MCV (RBC) [Entitic vol] 74.8 fL Low 79 - 98 fL [place], [place] Platelet mean volume (Bld) [Entitic vol] 7.8 fL 7.4 - 10.4 fL [place], [place] Platelets (Bld) [#/Vol] 353 10*3/uL 140 - 440 10*3/uL [place], [place] RBC (Bld) [#/Vol] 3.64 10*6/uL Low 3.8 - 5.2 10*6/uL [place], [place] WBC (Bld) [#/Vol] 6.6 10*3/uL 3.6 - 10.7 10*3/uL [place], [place] Test Performed by [facility], [address] [place] [id number] [place] [address] Comprehensive Metabolic Pane l w/ Reflex to MGon 06-15-2019 Albumin [Mass/Vol] 3.4 g/dL Low 3.5 - 5 g/dL [place], [place] ALP [Catalytic activity/Vol] 168 U/L High 38 - 126 U/L [place] ALT [Catalytic activity/Vol] 27 U/L 13 - 69 U/L [place], [place] Anion gap [Moles/Vol] 10 mmol/L [place] AST [Catalytic activity/Vol] 30 U/L 15 - 46 U/L [place], [place] Bilirubin Ql (U) 0.5 mg/dL 0.2 - 1.3 mg/dL [place], [place] Calcium [Mass/Vol] 8.7 mg/dL 8.4 - 10. 4 mg/dL [place], [place] Chloride [Moles/Vol] 100 mmol/L 98 - 10 7 mmol/L [place] CO2 [Moles/Vol] 25 mmol/L 22 - 30 mmol/L [place], [place] Creatinine [Mass/Vol] 0.86 mg/dL 0.52 - 1.25 mg/dL [place], [place] EGFR IF NonAfrican [place] >60.0 >60 mL/min [place], [place] Comment on above: Source- MDRD equatio n with creatinine calibration to IDMS(NKDEP) eGFR not recommended for drug dose adjustment GFR/1.73 sq M predicted among blacks MDRD (S/P/Bld) [Vol rate/Area] mL/min/{1.73_m2} >60 mL/min [place], [place] Glucose [Mass/Vol] 281 mg/dL High 70 - 100 mg/dL [place], [place] Interpretation and review of laboratory results Abnormal [place], [place] Potassium [Moles/Vol] 4.7 mmol/L 3.5 - 5.1 mmol/L [place], [place] Protein [Mass/Vol] 6.4 g/dL 6.3 - 8.2 g/dL [place], [place] Sodium [Moles/Vol] 135 mmol/L 135 - 145 mmol/L [place], [place] Urea nitrogen [Mass/Vol] 31 mg/dL High 7 - 20 mg/dL [place], [place] Test Performed by [facility], [address] [place] [address] [place], [place] EKG 12 Leadon 06-15-2019 Robert, [facility] Incoming Cardiology Results From [facility] - 06/15/2019 5:33 PM EDT [facility] Test Date: 2019-06-14 Pat Name: Will Jacinto Department: 1A6 Room: 6125 Gender: F 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: DILLON : 1965 Requested By: Order Number: [id number] Reading MD: Ezio Schmitt Measurements Intervals [place] Rate: 97 P: 50 [place]: 169 QRS: -27 QRSD: 113 T: 50 QT: 363 QTc: 461 Interpretive Statements Sinus rhythm Low voltage, precordial leads Left ventricular hypertrophy ST elev, consider awmi Electronically Signed On 06-15-2019 17:32:44 EDT by Ezio Schmitt [employer] MARYAM [facility] Test Date: 2019-06-14 Pat Name: Will Jacinto Department: 1AH6 Room: [facility] Gender: F 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: DILLON : 1965 Requested By: Order Number: [id number] Reading MD: Ezio Schmitt Measurements Intervals [place] Rate: 97 P: 50 [place]: 169 QRS: -27 QRSD: 113 T: 50 QT: 363 QTc: 461 Interpretive Statements Sinus rhythm Low voltage, precordial leads Left ventricular hypertrophy ST elev, consider awmi Electronically Signed On 06-15-2019 17:32:44 EDT by Ezio Schmitt [employer] MARYAM POCT Glucoseon 06-15-2019 Glucose [Mass/Vol] 402 mg/dL High 70 - 100 mg/dL [facility] [place] Comment on above: Test performed by gl ucose meter. Results may be 10%-15% lower than serum/plasma values. (CLIA ID [id number]) Interpretation and review of laboratory results Abnormal [facility] Test Performed by [employer], [address] [facility] [place] [address] [place] Glucose [Mass/Vol] 315 mg/dL High 70 - 100 mg/dL [facility] [place] Comment on above: Test performed by gl ucose meter. Results may be 10%-15% lower than serum/plasma values. (CLIA ID [id number]) Interpretation and review of laboratory results Abnormal [facility] Test Performed by [employer], [address] [place] [address] [facility] Glucose [Mass/Vol] 290 mg/dL High 70 - 100 mg/dL [facility] [place] Comment on above: Test performed by gl ucose meter. Results may be 10%-15% lower than serum/plasma values. (CLIA ID [id number]) Interpretation and review of laboratory results Abnormal [facility] Test Performed by [employer], [address] [place] [address] [place], [employer] Glucose [Mass/Vol] 414 mg/dL High 70 - 100 mg/dL [place], [place] Comment on above: Test performed by gl ucose meter. Results may be 10%-15% lower than serum/plasma values. (CLIA ID [id number]) Interpretation and review of laboratory results Abnormal [facility] [place], [place] Test Performed by [facility], [facility] [place] [address] [place], [place] Glucose [Mass/Vol] 366 mg/dL High 70 - 100 mg/dL [place], [place] Comment on above: Test performed by gl ucose meter. Results may be 10%-15% lower than serum/plasma values. (CLIA ID [id number]) Interpretation and review of laboratory results Abnormal [facility], [place] Test Performed by [facility], [facility] [place] [address] [place], [place] Glucose [Mass/Vol] 357 mg/dL High 70 - 100 mg/dL [place], [place] Comment on above: Test performed by gl ucose meter. Results may be 10%-15% lower than serum/plasma values. (CLIA ID [id number]) Interpretation and review of laboratory results Abnormal [facility], [place] Test Performed by [facility], [facility] [place] [address] [place], [place] Add On Lab Teston 06-14-2019 Sodium [Moles/Vol] Accepted [place], [place] Comment on above: Specimen available & acceptable for analysis. Test Performed by [facility], [facility] [place] [address] [place], [place] Basic Metabolic Panelon Anion gap [Moles/Vol] 13 mmol/L [place], [place] Calcium [Mass/Vol] 9.6 mg/dL 8.4 - 10. 4 mg/dL [place], [place] Chloride [Moles/Vol] 96 mmol/L Low 98 - 10 7 mmol/L [place], [place] CO2 [Moles/Vol] 27 mmol/L 22 - 30 mmol/L [place], [place] Creatinine [Mass/Vol] 0.89 mg/dL 0.52 - 1.25 mg/dL [place], [place] EGFR IF NonAfrican [place] >60.0 >60 mL/min [place], [place] Comment on above: Source- MDRD equatio n with creatinine calibration to IDMS(NKDEP) eGFR not recommended for drug dose adjustment GFR/1.73 sq M predicted among blacks MDRD (S/P/Bld) [Vol rate/Area] mL/min/{1.73_m2} >60 mL/min [place], [place] Glucose [Mass/Vol] 325 mg/dL High 70 - 100 mg/dL [place], [place] Interpretation and review of laboratory results Abnormal [place], [place] Potassium [Moles/Vol] 4.8 mmol/L 3.5 - 5.1 mmol/L [place], [place] Sodium [Moles/Vol] 135 mmol/L 135 - 145 mmol/L [place], [place] Urea nitrogen [Mass/Vol] 30 mg/dL High 7 - 20 mg/dL [place], [place] Beta-Hydroxybutyrateon 06-14 Beta-Hydroxybutyrate 1.24 mg/dL 0.2 - 2 .81 mg/dL [place], [place] C-Reactive Proteinon 019 CRP [Mass/Vol] 30.7 mg/L High 0 - 6 mg/L [place], [place] Comment on above: . Interpretation and review of laboratory results Abnormal [place], [place] Test Performed by [facility], [address] [place] [id number] [place] [address] Hemogram (CBC) w/Auto Diffon 06-14-2019 Absolute Baso # 0.0 10*3/uL 0 - 0.2 10*3/uL [place], [place] Absolute Neut # 4.8 10*3/uL 1.8 - 7 10*3/uL [place], [place] Basophils/100 WBC (Bld) 0.5 % 0 - 2 % [place] Eosinophils (Bld) [#/Vol] 0.1 10*3/uL 0 - 0.5 10*3/uL [place], [place] Eosinophils/100 WBC (Bld) 1.1 % 1 - 6 % [place], [place] Erythrocyte distribution width (RBC) [Ratio] 22.6 % High 11.5 - 14.5 % [place], [place] Granulocytes/100 WBC (Bld) 69.0 % 40 - 80 % [place], [place] Hematocrit (Bld) [Volume fraction] 30.2 % Low 35 - 47 % [place], [place] Hemoglobin (Bld) [Mass/Vol] 9.6 g/dL Low 11.7 - 16 g/dL [place], [place] Interpretation and review of laboratory results Abnormal [place], [place] Lymphocytes (Bld) [#/Vol] 1.5 10*3/uL 1 - 4.3 10*3/uL [place], [place] Lymphocytes/100 WBC (Bld) 20.9 % 20 - 40 % [place], [place] MCH (RBC) [Entitic mass] 23.8 pg Low 26 - 34 pg [place], [place] MCHC (RBC) [Mass/Vol] 31.7 % Low 32 - 36 % [place], [place] MCV (RBC) [Entitic vol] 75.1 fL Low 79 - 98 fL [place], [place] Monocytes (Bld) [#/Vol] 0.6 10*3/uL 0 - 0.8 10*3/uL [place], [place] Monocytes/100 WBC (Bld) 8.5 % 2 - 10 % [place], [place] Platelet mean volume (Bld) [Entitic vol] 7.8 fL 7.4 - 10.4 fL [place], [place] Platelets (Bld) [#/Vol] 396 10*3/uL 140 - 440 10*3/uL [place], [place] RBC (Bld) [#/Vol] 4.03 10*6/uL 3.8 - 5.2 10*6/uL [place], [place] WBC (Bld) [#/Vol] 7.0 10*3/uL 3.6 - 10.7 10*3/uL [place], [place] Test Performed by [facility], [address] [place] [address] [place], [place] Lactic Acid, Plasmaon 2018 Interpretation and review of laboratory results Abnormal [place], [place] Lactate [Moles/Vol] 3.7 mmol/L Critically high 0.7 - 2 mmol/L [place], [place] Comment on above: Repeated Test Performed by [facility], [facility] [place], [place] [id number] [place] [address] Otheron 06-14-2019 Test Performed by [facility], [facility] [place], [place] [id number] [place] [address] POCT Glucoseon 06-14-2019 Glucose [Mass/Vol] 325 mg/dL High 70 - 100 mg/dL [place], [place] Comment on above: Test performed by ucose meter. Results may be 10%-15% lower than serum/plasma values. (CLIA ID [id number]) Interpretation and review of laboratory results Abnormal [place], [place] Test Performed by [facility], [facility] [place] [place] [place] [id number] [place] [address] Procalcitoninon 06-14-2019 Procalcitonin <0.10 <0.10 ng/mL [place], [place] Sodium [Moles/Vol] See Below [place], [place] Comment on above: PCT <0.50 = Low risk of severe sepsis and/or septic shock. PCT >2.00 = High risk of severe sepsis and/or septic shock. Test Performed by [facility], [facility] [place], [place] [id number] [place] [address] Protime-INRon 06-14-2019 INR Coag (PPP) [Relative time] 1.0 {INR} [place], [place] Comment on above: Recommended Anticoag ulant [...] [Time] 10.9 s 9 - 12 s [place], [place] Comment on above: . Test Performed by [facility], [address] [place] [address] [facility], [place] Sedimentation Rateon 019 Interpretation and review of laboratory results Abnormal [facility], MARYAM Sed Rate 65 mm/h High 0 - 20 mm/h [facility] [place], [place] Test Performed by [facility], [address] [place] [address] [facility], [place] TYPE AND SCREENon 06-14-2019 Sodium [Moles/Vol] O [facility] [place], [place]ARY[place] Sodium [Moles/Vol] Positive [facility] [place], [place] Comment on above: Test Performed by [facility], [address] [place] [address] Sodium [Moles/Vol] Negative [facility] [place], [place]ARYAM Comment on above: Test Performed by [facility], [address] [place] [address] Test Performed by [facility], [address] [place] [address] [facility], MARYAM XR CHEST 1 VWon 06-14-2019 [facility], [facility] Incoming Radiology Results From [facility] - 06/14/2019 8:45 PM EDT Patient Name: WILL JACINTO ---Diagnostic Radiology--- Exam Date/Time 06/14/2019 20:33:50 EDT Exam CR Chest 1 View Frontal Ordering Physician [id number] GAUTAM Accession Number [id number] CPT4 Codes 08856 () Reason For Exam preop Report Portable [...] Dictated: 06/14/2019 8:44 pm Dictating Physician: MD TIFFANY, JOEL Signed Date and Time: 06/14/2019 8:44 pm Signed by: MD ALLEN RISA Transcribed Date and Time: 06/14/2019 8:44 [place], [place] Patient Name: WILL ALVARADO ---Diagnostic Radiology--- Exam Date/Time 06/14/2019 20:33:50 EDT Exam CR Chest 1 View Frontal Ordering Physician [id number] MCDOWELL Accession Number [id number] CPT4 Codes 17214 () Reason For Exam preop Report Portable [...] RISA Transcribed Date and Time: 06/14/2019 8:44 [place], [place] XR FEMUR RIGHT (MIN 2 VIEWS) on 06-14-2019 [facility], [facility] Incoming Radiology Results From [facility] - 06/14/2019 11:58 PM EDT Patient Name: WILL JACINTO ---Diagnostic Radiology--- Exam Date/Time 06/14/2019 23:38:07 EDT Exam CR Femur 2+ Views Right n Ordering Physician SCOOTER MCCOLLUM Accession Number [id number] CPT4 Codes 28772 () Reason For Exam pain Report CLINICAL [...] JEFFREY Transcribed Date and Time: 06/14/2019 11:55 [place], [place] Patient Name: WLIL ALVARADO ---Diagnostic Radiology--- Exam Date/Time 06/14/2019 23:38:07 EDT Exam CR Femur 2+ Views Right n Ordering Physician SCOOTER MCCOLLUM Accession Number [id number] CPT4 Codes 87988 () Reason For Exam pain Report CLINICAL [...] JEFFREY Transcribed Date and Time: 06/14/2019 11:55 [place], [place] XR FOOT RIGHT (MIN 3 VIEWS)o n 06-14-2019 Patient Name: WILL ALVARADO ---Diagnostic Radiology--- Exam Date/Time 06/14/2019 16:26:30 EDT Exam CR Foot Complete 3+ Views Right Ordering Physician MD ORTIZ DOUGALAS R. Accession Number [id number] CPT4 Codes 78883 () Reason For Exam R foot xray [...] midfoot neuropathic changes. Report Dictated on Workstation: Pro[employer]imal Data --- Final --- Dictated: 06/14/2019 4:40 pm Dictating Physician: MD GREGORY ANTHONY J Signed Date and Time: 06/14/2019 4:51 pm Signed by: MD GREGORY ANTHONY J Transcribed Date and Time: 06/14/2019 4:40 [facility] [place], [place] Robert, [facility] Incoming Radiology Results From [facility] - 06/14/2019 4:52 PM EDT Patient Name: WILL JACINTO ---Diagnostic Radiology--- Exam Date/Time 06/14/2019 16:26:30 EDT Exam CR Foot Complete 3+ Views Right Ordering Physician MD ANGEL, RENE Fontaine Accession Number [id number] CPT4 Codes 41441 () Reason For Exam R foot xray [...] midfoot neuropathic changes. Report Dictated on Workstation: SHALOM --- Final --- Dictated: 06/14/2019 4:40 pm Dictating Physician: MD GREGORY ANTHONY J Signed Date and Time: 06/14/2019 4:51 pm Signed by: MD GREGORY ANTHONY J Transcribed Date and Time: 06/14/2019 4:40 [facility] 01-03-2019 CNOV Office Visit (PLWDMR ) -------- WILL JACINTO ([id number]) 1965 M Date Time Provider Department 01/03/19 [...] put on Avycaz. Prescription orders written on [facility] paperwork Discussed with patient in detail Modify [...] capsules by mouth every 6 hours. Acidophilus-Pectin, [place] 25 million cell -100 mg tab Take [...] reviewed Imaging data: reviewed Jayson Hawthorne MD [phone] 01/03/2019 2:22 PM Roselia Sandoval, RN, RN [...] lower leg Continue current wound care from [place] Compression: ? Cast cover may be purchased [...] following changes to the Wound Center at [phone] or go to the Emergency Department: ? [...] Allergies) Date Reviewed: 01/03/2019 Reviewed by: Priscila (Zina) ZINA Vazquez - Fully Assessed Reason for Visit: Wound Check [133] Cmt: right lateral leg Primary Visit Diagnosis:History of wound infection [Z86.19] Order(s):WOUND CULTURE AND GRAM STAIN [SQWCUL] Order #: [id number]. #:[id number] WOUND CULTURE AND GRAM STAIN [SQWCUL] Order #: [id number]. #:[id number] Prescriptions as of 01/03/2019 Sig: DOXYCYCLINE MONOHYDRATE [...] lower leg Continue current wound care from [place]: ? Cast cover may be [...] following changes to the Wound Center at [phone] or go to the Emergency Department: ? [...] Encounter Status:Closed by DEBBIE CASEY on 01/04[facility]19 [facility] 01-03-2019 Protein mass conc HNO ID: [id number] Author: aJyson Hawthorne MD Service: (none) Author Type: Physician [...] put on Avycaz. Prescription orders written on [facility] paperwork Discussed with patient in detail Modify [...] capsules by mouth every 6 hours. Acidophilus-Pectin, [place] 25 million cell -100 mg tab Take [...] reviewed Imaging data: reviewed Jayson Hawthorne MD [phone] 01/03/2019 2:22 PM [facility] Wound Culture/Stainon 2018 Wound Culture/Stain Sp. [...] SUSCEPTIBLE <=0.5 F Critically abnormal [facility] Comment on above: Performed By: #### W CUL ####[facility] [place], [place] [phone] Wound Culture/Stain Sp. Request/Comment: - Eswab Smear [...] on --> ABNORMAL ALERT 01/03/2019 AT 1500 ([id number]) --> ABNORMAL ALERT Many --> ABNORMAL ALERT Providencia stuartii --> ABNORMAL ALERT Refer to specimen collected on --> ABNORMAL ALERT 01/03/2019 AT 1500 ([id number]) --> ABNORMAL ALERT Many --> ABNORMAL ALERT Enterococcus faecalis --> ABNORMAL ALERT Cephalosporins, clindamycin, and TMP-SMX are not effective for the treatment of enterococcal infections. --> ABNORMAL ALERT Rare skin dorinda ORGANISM: Enterococcus faecalis METHOD: Minimum inhibitory concentration(Vitek) Antibiotic Interp TULIO Status Ampicillin SUSCEPTIBLE <=2 F Vancomycin SUSCEPTIBLE 1 F Critically [facility] Comment on above: Performed By: #### W CUL ####[facility] [place], [place] [phone] CNOVon 12-27-2018 CNOV Office Visit (PLWDMR ) -------- WILL JACINTO ([id number]) 1965 M Date Time Provider Department 12/27/18 1:50 PM [facility] PLWDMR During your visit today, we recorded the following information about you: Temperature Pulse Respiration Blood pressure 98.6 degrees 79/minute 18/minute 141/82 Jayson Hawthorne MD, 12/27/2018 4:03 PM Signed INFECTIOUS DISEASE WOUND [...] doing debridement periodically. He was admitted to [facility] both in September as well as October 2018. He is not currently on any antibiotics. MEDICATIONS: ARIPiprazole (ABILIFY) 10 mg tablet Take 10 mg by mouth once daily. acetaminophen 325 mg cap Take 2 capsules by mouth every 6 hours. Acidophilus-Pectin, [place] 25 million cell -100 mg tab Take [...] reviewed Imaging data: reviewed Jayson Hawthorne MD [phone] 12/27/2018 2:07 PM Debbie Casey, RN, RN [...] toes to 1' below the knee. MARY WRAP/Tubi-conference planner: Foot is warm and pink before and [...] dressing twice daily Apply a size G tubi-conference planner from behind the toes to 1" below [...] - Drink a protein shake daily - glucbakari or cata herndon Report any of the following changes to the Wound Center at [phone] or go to the Emergency Department: ? [...] the wound center. Referring Provider: KYLAH LUU [[id number]] Allergies As of Date: 12/27/2018 (No Known Allergies) Date Reviewed: 12/27/2018 Reviewed by: Priscila (Zina) ZINA Vazquez - Fully Assessed Reason for Visit: Wound Check [133] Cmt: right leg Primary Visit Diagnosis:Chronic osteomyelitis with draining sinus, right ankle and foot (HCC) [M86.471] Other Visit Diagnoses:Lymphedema [I89.0] Pseudomonas aeruginosa infection [A49.8] Type 2 diabetes mellitus with diabetic peripheral angiopathy without gangrene, unspecified whether chcf insulin use (HCC) [E11.51] Order(s):WOUND CULTURE AND GRAM STAIN [SQWCUL] Order #: [id number] doxycycline monohydrate (MONODOX) 100 mg capsuleTake 1 [...] dressing twice daily Apply a size G tubi-conference planner from behind the toes to 1" below [...] following changes to the Wound Center at [phone] or go to the Emergency Department: ? [...] Dr. Marine MD/mjl Visit Notes: >> Debbie Casey RN josefina [...] toes to 1' below the knee. MARY WRAP/Tubi-conference planner: Foot is warm and pink before and [...] Encounter Status:Closed by DEBBIE CASEY on 12/27/18 [facility] PROGRESSon 12-27-2018 Protein mass conc HNO ID: [id number] Author: Jayson Hawthorne MD Service: (none) Author [...] doing debridement periodically. He was admitted to [facility] both in September as well as October 2018. He is not currently on any antibiotics. MEDICATIONS: ARIPiprazole (ABILIFY) 10 mg tablet Take 10 mg by mouth once daily. acetaminophen 325 mg cap Take 2 capsules by mouth every 6 hours. Acidophilus-Pectin, [place] 25 million cell -100 mg tab Take [...] reviewed Imaging data: reviewed Jayson Hawthorne MD [phone] [facility]/27[facility]2018 [facility] Office Visit (PLWDMR ) -------- WILL JACINTO ([id number]) 1965 M Date Time Provider Department 07/12/18 [...] capsules by mouth every 6 hours. Acidophilus-Pectin, [place] 25 million cell -100 mg tab Take [...] reviewed Imaging data: reviewed Jayson Hawthorne MD [phone] 07/12/2018 2:03 PM Priscila Vazquez MA, MA [...] and kerlix. Size G Tubigrip applied. MARY WRAP/Tubi-conference planner: Foot is warm and pink before and [...] following changes to the Wound Center at [phone] or go to the Emergency Department: ? [...] diabetic peripheral angiopathy without gangrene, unspecified whether chcf insulin use ([facility]) [E11.51] Prescriptions as of 07/12/2018 Sig: DOXYCYCLINE [...] following changes to the Wound Center at [phone] or go to the Emergency Department: ? Fever or chills ? Increased drainage ? Green or yellow drainage ? Foul odor ? Increased pain ? Hardness around the wound ? Redness, warmth or swelling of the surrounding tissue ? Color change to the wound PLAN: Return to the wound center in [address] Glenn Hawthorne MD/[facility] Visit Notes: >> ZINA Berman Ma Jul [...] and kerlix. Size G Tubigrip applied. MARY WRAP/Tubi-conference planner: Foot is warm and pink before and [...] Status:Closed by JAYSON HAWTHORNE MD on 07/15/18 [facility] PROGRESSon 07-12-2018 Protein mass conc HNO ID: [id number] Author: Jayson Hawthorne MD Service: (none) Author [...] capsules by mouth every 6 hours. Acidophilus-Pectin, [place] 25 million cell -100 mg tab Take [...] reviewed Imaging data: reviewed Jayson Hawthorne MD [phone] 07/12/2018 2:03 PM [facility] 06-28-2018 [facility] Office Visit (PLWDMR ) -------- WILL JACINTO ([id number]) 1965 M Date Time Provider Department 06/28/18 [...] capsules by mouth every 6 hours. Acidophilus-Pectin, [place] 25 million cell -100 mg tab Take [...] following changes to the Wound Center at [phone] or go to the Emergency Department: ? [...] following changes to the Wound Center at [phone] or go to the Emergency Department: ? [...] Visit Notes: >> Roselia (Rn) PASTORA Sandoval Jun 28, 2018 2:33 PM Status: [...] Status:Closed by TERRIE KWAN MD on 06/30/18 [facility] PROGRESSon 06-28-2018 Protein mass conc HNO ID: [id number] Author: Terrie Kwan Service: (none) Author Type: [...] capsules by mouth every 6 hours. Acidophilus-Pectin, [place] 25 million cell -100 mg tab Take [...] Imaging data: reviewed Terrie Kwan MD [facility] (PLWDMR ) -------- WILL JACINTO ([id number]) 1965 M Date Time Provider Department 06/14/18 [...] PICC line to be removed by the [facility] Continue compression for edema and lymphedema management Continue aggressive wound care [facility] is at a [facility] for [facility] and will go home [...] reviewed Imaging data: reviewed Jayson Hawthorne MD [phone] 06/14/2018 1:56 PM Debbie Casey RN, RN [...] weeks PICC is to be removed per [facility] EDUCATION: The patient/family was instructed how to [...] following changes to the Wound Center at [phone] or go to the Emergency Department: ? Fever or chills ? Increased drainage ? Green or yellow drainage ? Foul odor ? Increased pain ? Hardness around the wound ? Redness, warmth or swelling of the surrounding tissue ? Color change to the wound PLAN: Return to the wound center to see ID in 2 weeks PICC is to be removed per mcc Dr. 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 Fever or chills ? Increased drainage ? Green or yellow drainage ? Foul odor ? Increased pain ? Hardness around the wound ? Redness, warmth or swelling of the surrounding tissue ? Color change to the wound PLAN: Return to the wound center to see ID in 2 weeks PICC is to be removed per mcc Dr. Marine DUMONT/thiago Visit Notes: >> Debbie (Rn) PASTORA Casey [...] weeks PICC is to be removed per [facility] EDUCATION: The patient/family was instructed how to [...] Encounter Status:Closed by LURDES CARMONA on 06/16/18 [facility] PROGRESSon 06-14-2018 Protein mass conc HNO ID: [id number] Author: Jayson Hawthorne MD Service: (none) Author Type: Physician Type: Progress Notes Filed: 06/16/2018 11:23 AM Note Text: INFECTIOUS DISEASE WOUND CENTER NOTE Patient Name: Will Jacinto Date: 06/14/2018 ASSESSMENT: R 5th toe OM PsAG and diphtheroids infection Leg lymphedema Obesity DM2 PLAN: Stop meropenem She has completed 6 weeks of treatment PICC line to be removed by the [facility] Continue compression for edema and lymphedema management Continue aggressive wound care He is at a [facility] for wound healing and will go home [...] reviewed Imaging data: reviewed Jayson Hawthorne MD [phone] 06/14/2018 1:56 PM Normal [facility] Culture Anaerobeon 06-27-201 8 Culture Anaerobe Specimen Comments: RIGHT FIFTH METATARSALCulture Observations: No anaerobes isolatedSusceptibility Data: --- [facility] Comment on above: Order Comment: CONTR AST PER RADIOLOGIST DISCRETION. R/o abscess, OM Performed By: #### C HARLAN ####[facility] [place] [address] Culture Wound Aerobic w/ Gra chika Rosales 05-04-2018 Culture Wound Aerobic w/ Gram St Specimen Comments: RIGHT FIFTH METATARSALCulture Exam: ---------1. Corynebacterium striatum Small numbers ofSusceptibility Data: --- [facility] Comment on above: Order Comment: CONTR AST PER RADIOLOGIST DISCRETION. R/o abscess, OM Result Comment: [facility] eptibility testing not routinely performed on this isolate. Performed By: #### C XWND ####[facility] [place] [address] Surgical Pathology Depar tmenton 05-04-2018 [facility] Surgical Pathology Department Name WILL JACINTO Pathologist: VIRGIL JIMENEZ, MDDate of Procedure: 05/04/2018Date Received: 05/04/2018Date Reported 05/12/2018Submitting Physician: IWONA NEWSOMEocation: APMISC Copy To/Referring/Attending:Gina GARNER MD Other External # [id number] FINAL DIAGNOSISFIFTH METATARSAL, RIGHT, AMPUTATION: --MARROW WITH CHRONIC OSTEOMYELITIS AND FOCAL HEMATOPOIESIS--BONE AND CARTILAGE WITH DEGENERATIVE CHANGES Electronically Signed Out By VIRGIL JIMENEZ MD/Johnnie the signature on this report, the individual or group listed as making theFinal Interpretation/Diagnosis certifies that they have reviewed this case. Clinical History:Osteomyelitits 5th metatarsal right footSpecimens Submitted As:A: RIGHT FIFTH METATARSAL Other Case Numbers [id number] Description:A. Received in formalin, labeled with the patient's name and hospital numberand right fifth metatarsal is a single fragment of bone measuring 4.3 x 3.1 x2.2 cm. Pediatric Clinical Nurse Specialist sections of the specimen are submitted followingdecalcification .HXRhxr/05/06/2018 Normal [facility] Comment on above: Performed By: #### U HCS ####[facility] Surgical Pathology [address] [place] [address] Ferritinon 04-30-2018 Ferritin 138 ng/mL Normal 8-252 [facility] Comment on above: Performed By: #### B 12, FERRTN ####[place] [address] Iron with TIBCon 04-30-2018 % Saturation 19 % Normal 16-46 [facility] Comment on above: Performed By: #### I RONIBC ####[place] [address] Iron 43 ug/dL Low 50-170 [facility] Comment on above: Performed By: #### I RONIBC ####[place] [address] TIBC 222 ug/dL Low 250-450 [facility] Comment on above: Performed By: #### I RONIBC ####[place] [id number] Occult Blood Stool 1-3on [facility] Occult Blood Normal NEGATIVE [facility] Comment on above: Order Comment: CONTR AST PER RADIOLOGIST DISCRETION. R/o abscess, OM Performed By: #### O CBLDST ####[place] [address] Occult Blood Negative Normal NEGATIVE [facility] Comment on above: Order Comment: CONTR AST PER RADIOLOGIST DISCRETION. R/o abscess, OM Performed By: #### O CBLDST ####[place] [address] Vitamin B12on 04-30-2018 Cobalamins (Vitamin B12) 365.0 pg/mL Normal 193.0-986.0 [facility] Comment on above: Performed By: #### B 12, FERRTN ####[place] [id number] MRI Low Ext RT Non-JT w/wo c ontraston 04-29-2018 MRI Low Ext RT Non-JT w/wo contrast Examination:MRI right footClinical Indication:Pain, swelling and drainage, multiple ulcersComparison:NoneFin dings:Multiplanar multisequence high field strength MRI images were obtained throughthe right foot prior to and after 15 mL Gadavist intravenous gadolinium.Examination is moderately limited by motion artifact and slightly evglrrmyegbrvbzm-rs-lkny e. Unable to utilize the dedicated foot [...] of the fifth metatarsal.Report Dictated on Workstation: [id number] ed by: Shayy Gregory: 04/29/2018 14:18Read by: Sofia RAY: 04/29/2018 14:18 [facility] Comment on above: Order Comment: CONTR AST [...] assess given therecent surgeryReport Dictated on Workstation: [id number] by: Garima Love: 04/28/2018 17:30Read by: Sofia PATEL: 04/28/2018 17:30 [facility] Culture Anaerobeon 8 Culture Anaerobe Culture Observations: No anaerobes isolatedSusceptibility Data: --- [facility] Comment on above: Performed By: #### C HARLAN ####[facility] [place] [address] Culture Wound Aerobic w/ Gra m Bobby 03-18-2018 Culture Wound Aerobic w/ Gram St Specimen Comments: BoneCulture Observations: Rare colonies of normal skin dorinda (diphtheroids)Direct Exam: ---------No WBCs seenNo organisms seenSusceptibility Data: --- [facility] Comment on above: Order Comment: TULIO p erformed at additional charge whenindicated Performed By: #### C XWND ####Nati [facility] [place], [place] [id number] [facility] Surgical Pathology Depar tmenton 03-18-2018 [facility] Surgical Pathology Department Name WILL JACINTO Pathologist: EVELYNE NUNEZate of Procedure: 03/18/2018Date Received: 03/18/2018Date Reported 03/29/2018Submitting Physician: DILLON NEWSOMEMLocation: APMISC Copy To/Referring/Attending:Gina GARNER MD Other External # [id number] FINAL DIAGNOSISBONE, RIGHT FOOT, EXCISION: --CHRONIC OSTEOMYELITIS Electronically Signed Out By VIRGLI JIMENEZ MD/Johnnie the signature on this report, the individual or group listed as making theFinal Interpretation/Diagnosis certifies that they have reviewed this case. Clinical History:OsteomylitisSpec imens Submitted As:A: BONE RIGHT FOOT Other Case Numbers [id number] Description:Received in formalin, labeled with the patient's name and hospital number and"bone right foot", is a bone measuring 2.7 x 0.7 x 0.7 cm. Representativesections are submitted in 2 cassettes following decalcification.DJOSumma ry of Cassettes:Specimen Label SiteA 1 resection margin 2 representatived/ 018 Normal [facility] Comment on above: Performed By: #### U [facility] ####[facility] Surgical Pathology [address] [place] [address] XR Chest Mobile 1 viewon XR Chest [...] mildcongestive heart failure/fluid overload.Report Dictated on Workstation: [id number] ated by: Nay Ovalles: 03/18/2018 14:29Read by: SERGIO OVALLES, MDDate: 03/18/2018 14:29 Normal [facility] Iron with TIBCon 03-16-2018 % Saturation 25 % Normal 16-46 [facility] Comment on above: Performed By: #### I RONIBC ####[facility] [place] [address] Iron 65 ug/dL Normal 50-170 [facility] Comment on above: Performed By: #### I RONIBC ####[facility] [place] [address] TIBC 258 ug/dL Normal 250-450 [facility] Comment on above: Performed By: #### I RONIBC ####[address] [address] MRI Low Ext RT Non-Jt wo con [...] 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.Report Dictated on Workstation: [id number] ated by: Alonzo GregoryOn: 03/16/2018 10:41Read by: Sofia RAY: 03/16/2018 10:41 Normal [facility] Comment on above: Order Comment: CONTR AST PER RADIOLOGIST DISCRETION Occult Blood Stool 1-3on Occult Blood Normal NEGATIVE [facility] Comment on above: Order Comment: x1 Performed By: #### O CBLDST ####[place] [address] Occult Blood Negative Normal NEGATIVE [facility] Comment on above: Order Comment: x1 Performed By: #### O CBLDST ####[address] [address] XR Foot Right complete 3 plu s [...] soft tissue gas collection.Report Dictated on Workstation: [id number] laura by: Nay Muinz: 03/15/2018 23:44Read by: SERGIO MUNIZ, EVELYNEate: 03/15/2018 23:44 [facility] Comment on above: Order Comment: R/o O M Culture Anaerobeon 8 Culture Anaerobe Specimen Comments: RIGHT FOOT SOFT TISSCulture Exam: ---------1. anaerobic gram positive cocci Small numbers ofSusceptibility Data: --- [facility] Comment on above: Order Comment: AEROB IC/ANAEROBIC CULTURES OF RIGHT FOOT SOFT TISS Result Comment: (TULIO s not performed on anaerobes) Performed By: #### C HARLAN ####Nati [facility], [place] [address] Culture Wound Aerobic w/ Gra m Ston 02-04-2018 Culture Wound Aerobic w/ Gram St Specimen Comments: RIGHT FOOT SOFT TISSCulture Observations: Small numbers of mixed enteric dorinda and mixed skin dorinda- more than 3 organisms with none predominant.No Staphylococcus aureus, Pseudomonas aeruginosa or beta Streptococcus isolatedDirect Exam: ---------No WBCs seenNo organisms seenSusceptibility Data: --- [facility] Comment on above: Order Comment: AEROB IC/ANAEROBIC CULTURES OF RIGHT FOOT SOFT TISS Performed By: #### C MANJU ####[place] [facility] [place], [place] [address] MRI Low Ext RT Non-JT w/wo [facility] 02-02-2018 MRI Low Ext RT Non-JT w/wo [...] clinical concern of osteomyelitis.Report Dictated on Workstation: [id number] ated by: Irma Barragan: 02/03/2018 12:13Read by: IFTIKHAR BARRAGAN, EVELYNEate: 02/03/2018 12:13 [facility] Comment on above: Order Comment: CONTR AST [...] d soft tissue swelling.Report Dictated on Workstation: [id number] ated by: Nay Muniz: 02/02/2018 15:32Read by: SERGIO MUNIZ, MDDate: 02/02/2018 15:32 [facility] Comment on above: Order Comment: R/o O M Vital Signs Date Time Vital Sign Value Performing Clinician Facility 07-11-2025 00:48-0400 Diastolic blood pressure 86 mm[Hg] Hermes Issa MD Work Phone: [facility] 07-11-2025 00:48-0400 Heart rate 72 /min Hermes Issa MD Work Phone: [facility] 07-11-2025 00:48-0400 Respiratory rate 18 /min Hermes Issa MD Work Phone: [facility] 07-11-2025 00:48-0400 SaO2% (BldA) [Mass fraction] 93 % Hermes Issa MD Work Phone: [facility] 07-11-2025 00:48-0400 Systolic blood pressure 147 mm[Hg] Hermes Issa MD Work Phone: [facility] 07-10-2025 15:56-0400 Body height 167.6 cm Hermes Issa MD Work Phone: [facility] 07-10-2025 15:56-0400 Body mass index (BMI) [Ratio] 53.42 kg/m2 Hermes Issa MD Work Phone: [facility] 07-10-2025 15:56-0400 Body temperature 98.4 [degF] Hermes Issa MD Work Phone: [facility] 07-10-2025 15:56-0400 Body weight 150.14 kg Hermes Issa MD Work Phone: [facility] 06-07-2025 13:25-0400 Diastolic blood pressure 71 mm[Hg] Farhad Chavez MD Work Phone: [facility] 06-07-2025 13:25-0400 Heart rate 77 /min Farhad Chavez MD Work Phone: [facility] 06-07-2025 13:25-0400 Respiratory rate 18 /min Farhad Chavez MD Work Phone: [facility] 06-07-2025 13:25-0400 SaO2% (BldA) [Mass fraction] 95 % Farhad Chavez MD Work Phone: [facility] 06-07-2025 13:25-0400 Systolic blood pressure 143 mm[Hg] Farhad Chavze MD Work Phone: [facility] 06-07-2025 11:35-0400 Body temperature 97 [degF] Farhad Chavez MD Work Phone: [facility] 04-06-2025 08:50-0400 Body height 167.6 cm Kaushal Schultz PA-C Work Phone: [facility] 04-06-2025 08:50-0400 Body mass index (BMI) [Ratio] 48.1 kg/m2 Gunner Stall PA-C Work Phone: [employer] 04-06-2025 08:50-0400 Body weight 135.17 kg Gunner Stall PA-C Work Phone: [employer] 04-06-2025 08:50-0400 Diastolic blood pressure 72 mm[Hg] Gunner Stall PA-C Work Phone: [employer] 04-06-2025 08:50-0400 Heart rate 86 /min Gunner Stall PA-C Work Phone: [employer] 04-06-2025 08:50-0400 Systolic blood pressure 114 mm[Hg] Gunner Stall PA-C Work Phone: [employer] [facility] 02-01-2025 09:50-0400 Body height 167.6 cm Soapbox SECURITY CONTROLS ASSESSOR - CLINICAL TRIALS SPECIALIST Work Phone: [employer] 02-01-2025 09:50-0400 Body mass index (BMI) [Ratio] 48.1 kg/m2 [employer] SECURITY CONTROLS ASSESSOR - CLINICAL TRIALS SPECIALIST Work Phone: [employer] 02-01-2025 09:50-0400 Body temperature 97 [degF] [employer] SECURITY CONTROLS ASSESSOR - CLINICAL TRIALS SPECIALIST Work Phone: [employer] 02-01-2025 09:50-0400 Body weight 135.17 kg [employer] SECURITY CONTROLS ASSESSOR - CLINICAL TRIALS SPECIALIST Work Phone: [employer] 02-01-2025 09:50-0400 Diastolic blood pressure 82 mm[Hg] [employer] SECURITY CONTROLS ASSESSOR - CLINICAL TRIALS SPECIALIST Work Phone: [employer] 02-01-2025 09:50-0400 Heart rate 76 /min [employer] SECURITY CONTROLS ASSESSOR - CLINICAL TRIALS SPECIALIST Work Phone: [employer] 02-01-2025 09:50-0400 Respiratory rate 18 /min [employer] SECURITY CONTROLS ASSESSOR - CLINICAL TRIALS SPECIALIST Work Phone: [employer] 02-01-2025 09:50-0400 SaO2% (BldA) [Mass fraction] 97 % [employer] SECURITY CONTROLS ASSESSOR - CLINICAL TRIALS SPECIALIST Work Phone: [employer] 02-01-2025 09:50-0400 Systolic blood pressure 124 mm[Hg] Alejandro Mandel APRN - CLINICAL TRIALS SPECIALIST Work Phone: [facility] 01-01-2025 11:26-0500 Body height 167.6 cm Margo Guerrero SECURITY CONTROLS ASSESSOR - CLINICAL TRIALS SPECIALIST Work Phone: [facility] 01-01-2025 11:26-0500 Body mass index (BMI) [Ratio] 48.1 kg/m2 Margo Guerrero SECURITY CONTROLS ASSESSOR - CLINICAL TRIALS SPECIALIST Work Phone: [facility] 01-01-2025 11:26-0500 Body weight 135.17 kg Margo Guerrero SECURITY CONTROLS ASSESSOR - CLINICAL TRIALS SPECIALIST Work Phone: [facility] 01-01-2025 11:26-0500 Diastolic blood pressure 62 mm[Hg] Margo Guerrero SECURITY CONTROLS ASSESSOR - CLINICAL TRIALS SPECIALIST Work Phone: [facility] 01-01-2025 11:26-0500 Heart rate 72 /min Margo Guerrero SECURITY CONTROLS ASSESSOR - CLINICAL TRIALS SPECIALIST Work Phone: [facility] 01-01-2025 11:26-0500 Systolic blood pressure 128 mm[Hg] Margo Guerrero SECURITY CONTROLS ASSESSOR - CLINICAL TRIALS SPECIALIST Work Phone: [facility] 12-21-2024 08:04-0500 Body height 167.6 cm Wanda Johnson SECURITY CONTROLS ASSESSOR - CLINICAL TRIALS SPECIALIST Work Phone: [facility] 12-21-2024 08:04-0500 Body mass index (BMI) [Ratio] 51.65 kg/m2 Wanda Johnson SECURITY CONTROLS ASSESSOR - CLINICAL TRIALS SPECIALIST Work Phone: [facility] 12-21-2024 08:04-0500 Body weight 145.15 kg Wanda Cmer SECURITY CONTROLS ASSESSOR - CLINICAL TRIALS SPECIALIST Work Phone: [facility] 12-21-2024 08:04-0500 Diastolic blood pressure 69 mm[Hg] Wanda Cmer SECURITY CONTROLS ASSESSOR - CLINICAL TRIALS SPECIALIST Work Phone: [facility] 12-21-2024 08:04-0500 Heart rate 78 /min Wanda Cmer SECURITY CONTROLS ASSESSOR - CLINICAL TRIALS SPECIALIST Work Phone: [facility] 12-21-2024 08:04-0500 Systolic blood pressure 137 mm[Hg] Wanda Johnson SECURITY CONTROLS ASSESSOR - CLINICAL TRIALS SPECIALIST Work Phone: [facility] 12-07-2024 12:53-0500 Body temperature 97.59 [degF] Lilo Rizo MD Work Phone: [facility] [place] 12-07-2024 12:53-0500 Diastolic blood pressure 80 mm[Hg] Lilo Rizo MD Work Phone: [facility] [place] 12-07-2024 12:53-0500 Heart rate 82 /min Lilo Rizo MD Work Phone: [facility] [place] 12-07-2024 12:53-0500 Systolic blood pressure 139 mm[Hg] Lilo Rizo MD Work Phone: [facility] [place] 11-14-2024 10:09-0500 Body height 167.6 cm Asuncion Black SECURITY CONTROLS ASSESSOR - CLINICAL TRIALS SPECIALIST Work Phone: [facility] 11-14-2024 10:09-0500 Body temperature 97.2 [degF] Asuncion Black SECURITY CONTROLS ASSESSOR - CLINICAL TRIALS SPECIALIST Work Phone: [facility] [place] 11-14-2024 10:09-0500 Diastolic blood pressure 79 mm[Hg] Asuncion Black SECURITY CONTROLS ASSESSOR - CLINICAL TRIALS SPECIALIST Work Phone: [facility] [place] 11-14-2024 10:09-0500 Heart rate 83 /min Asuncion Black SECURITY CONTROLS ASSESSOR - CLINICAL TRIALS SPECIALIST Work Phone: [facility] 11-14-2024 10:09-0500 Systolic blood pressure 140 mm[Hg] Asuncion Black SECURITY CONTROLS ASSESSOR - CLINICAL TRIALS SPECIALIST Work Phone: [facility] [place] 11-12-2024 22:42-0500 Body temperature 98.6 [degF] Virgil Mederos MD Work Phone: [facility] [place] 11-12-2024 22:42-0500 Diastolic blood pressure 68 mm[Hg] Virgil Mederos MD Work Phone: [facility] [place] 11-12-2024 22:42-0500 Heart rate 86 /min Virgil Mederos MD Work Phone: [facility] [place] 11-12-2024 22:42-0500 Respiratory rate 16 /min Virgil Mederos MD Work Phone: [facility] [place] 11-12-2024 22:42-0500 SaO2% (BldA) [Mass fraction] 96 % Virgil Mederos MD Work Phone: [facility] [place] 11-12-2024 22:42-0500 Systolic blood pressure 144 mm[Hg] Virgil Mederos MD Work Phone: [facility] [place] 11-10-2024 11:07-0500 Body height 167.6 cm Asuncion Valencia SECURITY CONTROLS ASSESSOR - CLINICAL TRIALS SPECIALIST Work Phone: [facility] [place] 11-10-2024 11:07-0500 Body temperature 97.3 [degF] Asuncion Erik SECURITY CONTROLS ASSESSOR - CLINICAL TRIALS SPECIALIST Work Phone: [facility] [place] 11-10-2024 11:07-0500 Diastolic blood pressure 81 mm[Hg] Asuncion Valencia SECURITY CONTROLS ASSESSOR - CLINICAL TRIALS SPECIALIST Work Phone: [facility] [place] 11-10-2024 11:07-0500 Heart rate 83 /min Asuncion Valencia SECURITY CONTROLS ASSESSOR - CLINICAL TRIALS SPECIALIST Work Phone: [facility] [place] 11-10-2024 11:07-0500 Systolic blood pressure 142 mm[Hg] Asuncion Valencia SECURITY CONTROLS ASSESSOR - CLINICAL TRIALS SPECIALIST Work Phone: [facility] [place] 10-24-2024 14:17-0500 Body temperature 96.91 [degF] Vicente Mixon MD Work Phone: [facility] [place] 10-24-2024 13:39-0500 Diastolic blood pressure 83 mm[Hg] Vicente Mixon MD Work Phone: [facility] [place] 10-24-2024 13:39-0500 Heart rate 64 /min Vicente Mixon MD Work Phone: [facility] [place] 10-24-2024 13:39-0500 Respiratory rate 16 /min Vicente Mixon MD Work Phone: [facility] [place] 10-24-2024 13:39-0500 SaO2% (BldA) [Mass fraction] 98 % Vicente Mixon MD Work Phone: [facility] [place] 10-24-2024 13:39-0500 Systolic blood pressure 123 mm[Hg] Vicente Mixon MD Work Phone: [facility] 10-23-2024 13:55-0500 SaO2% (BldA) [Mass fraction] 93 % Dontrell Glozman DO Work Phone: [facility] 10-23-2024 08:14-0500 Body temperature 97.7 [degF] Dontrell Glozman DO Work Phone: [facility] [place] 10-23-2024 08:14-0500 Diastolic blood pressure 54 mm[Hg] Dontrell Glozman DO Work Phone: [facility] 10-23-2024 08:14-0500 Heart rate 85 /min Dontrell Glozman DO Work Phone: [facility] 10-23-2024 08:14-0500 Respiratory rate 20 /min Dontrell Glozman DO Work Phone: [facility] [place] 10-23-2024 08:14-0500 Systolic blood pressure 127 mm[Hg] Dontrell Glozman DO Work Phone: [facility] 10-22-2024 13:16-0500 Body height 167.6 cm Dontrell Glozman DO Work Phone: [facility] 10-18-2024 21:04-0500 Body mass index (BMI) [Ratio] 51.65 kg/m2 Dontrell Glozman DO Work Phone: [facility] [place] 10-18-2024 21:04-0500 Body weight 145.15 kg Dontrell Glozman DO Work Phone: [facility] 02-11-2024 09:55-0400 Body height 167.6 cm Herber Palmerson SECURITY CONTROLS ASSESSOR - CLINICAL TRIALS SPECIALIST Work Phone: [facility] [place] 02-11-2024 09:55-0400 Body mass index (BMI) [Ratio] 46.83 kg/m2 Herber Ramos APRN - CLINICAL TRIALS SPECIALIST Work Phone: [facility] 02-11-2024 09:55-0400 Body weight 131.54 kg Herber Ramos APRN - CLINICAL TRIALS SPECIALIST Work Phone: [facility] 02-11-2024 09:55-0400 Diastolic blood pressure 78 mm[Hg] Herber Ramos APRN - CLINICAL TRIALS SPECIALIST Work Phone: [facility] 02-11-2024 09:55-0400 Heart rate 79 /min Herber Ramos APRN - CLINICAL TRIALS SPECIALIST Work Phone: [facility] 02-11-2024 09:55-0400 Respiratory rate 14 /min Herber Ramos APRN - CLINICAL TRIALS SPECIALIST Work Phone: [facility] 02-11-2024 09:55-0400 SaO2% (BldA) [Mass fraction] 99 % Herber Ramos APRN - CLINICAL TRIALS SPECIALIST Work Phone: [facility] Comment on above: 02-11-2024 09:55-0400 Systolic blood pressure 131 mm[Hg] Herber Ramos APRN - CLINICAL TRIALS SPECIALIST Work Phone: [facility] 01-27-2024 18:55-0400 Body height 167.6 cm Fermin Nesheim DO Work Phone: [facility] 01-27-2024 18:55-0400 Body mass index (BMI) [Ratio] 46.81 kg/m2 Fermin Nesheim DO Work Phone: [facility] 01-27-2024 18:55-0400 Body temperature 97.59 [degF] Fermin Nesheim DO Work Phone: [employer] 01-27-2024 18:55-0400 Body weight 131.54 kg Fermin Nesheim DO Work Phone: [facility] 01-27-2024 18:55-0400 Diastolic blood pressure 63 mm[Hg] Fermin [facility]esheim DO [facility] 01-27-2024 18:55-0400 Heart rate 78 /min Fermin Nesheim DO Work Phone: [employer] 01-27-2024 18:55-0400 Respiratory rate 18 /min Fermin Nesheim DO Work Phone: [employer] 01-27-2024 18:55-0400 SaO2% (BldA) [Mass fraction] 99 % Fermin Nesheim DO Work Phone: [employer] 01-27-2024 18:55-0400 Systolic blood pressure 155 mm[Hg] Fermin Nesheim DO Work Phone: [employer] 01-26-2024 21:29-0400 Body height 167.6 cm Art Zeng DO Work Phone: [facility] [place] 01-26-2024 21:29-0400 Body mass index (BMI) [Ratio] 46.81 kg/m2 Art Peraltaaci DO Work Phone: [employer] 01-26-2024 21:29-0400 Body weight 131.54 kg Art Peraltaaci DO Work Phone: [employer] 01-26-2024 21:28-0400 Body temperature 97.9 [degF] Art Kathrynaci DO Work Phone: [employer] 01-26-2024 21:28-0400 Diastolic blood pressure 63 mm[Hg] Art Kathrynaci DO Work Phone: [employer] 01-26-2024 21:28-0400 Heart rate 83 /min Art Peraltaaci DO Work Phone: [employer] 01-26-2024 21:28-0400 Respiratory rate 16 /min Art Peraltaaci DO Work Phone: [employer] 01-26-2024 21:28-0400 SaO2% (BldA) [Mass fraction] 100 % Art Kathrynaci DO Work Phone: [employer] 01-26-2024 21:28-0400 Systolic blood pressure 124 mm[Hg] Art Kathrynaci DO Work Phone: [facility] [place] 01-22-2024 07:15-0400 Body temperature 97.59 [degF] Jaquan Huschke DO Work Phone: [facility] [place] 01-22-2024 07:15-0400 Diastolic blood pressure 51 mm[Hg] Jaquan Morris DO Work Phone: [facility] [place] 01-22-2024 07:15-0400 Heart rate 94 /min Jaquan Morris DO Work Phone: [facility] [place] 01-22-2024 07:15-0400 Respiratory rate 20 /min Jaquan Morris DO Work Phone: [facility] [place] 01-22-2024 07:15-0400 SaO2% (BldA) [Mass fraction] 97 % Jaquan Morris DO Work Phone: [facility] [place] 01-22-2024 07:15-0400 Systolic blood pressure 160 mm[Hg] Jaquan Morris DO Work Phone: [facility] [place] 12-29-2023 08:04-0500 Diastolic blood pressure 53 mm[Hg] Edwin Bustos MD Work Phone: [facility] [place] 12-29-2023 08:04-0500 Heart rate 83 /min Edwin Bustos MD Work Phone: [facility] [place] 12-29-2023 08:04-0500 Respiratory rate 17 /min Edwin Bustos MD Work Phone: [facility] [place] 12-29-2023 08:04-0500 SaO2% (BldA) [Mass fraction] 100 % Edwin Bustos MD Work Phone: [facility] [place] 12-29-2023 08:04-0500 Systolic blood pressure 132 mm[Hg] Edwin Bustos MD Work Phone: [facility] [place] 12-28-2023 23:14-0500 Body height 167.6 cm Edwin Bustos MD Work Phone: [employer] 12-28-2023 23:14-0500 Body mass index (BMI) [Ratio] 52.29 kg/m2 Edwin Bustos MD Work Phone: [facility] 12-28-2023 23:14-0500 Body temperature 97.59 [degF] Edwin Bustos MD Work Phone: [facility] 12-28-2023 23:14-0500 Body weight 146.97 kg Edwin Bustos MD Work Phone: [facility] 12-09-2023 10:05-0500 Diastolic blood pressure 63 mm[Hg] Caridad Evans MD Work Phone: [facility] 12-09-2023 10:05-0500 Heart rate 78 /min Caridad Evans MD Work Phone: [facility] 12-09-2023 10:05-0500 Respiratory rate 23 /min Caridad Evans MD Work Phone: [facility] 12-09-2023 10:05-0500 SaO2% (BldA) [Mass fraction] 97 % Caridad Evans MD Work Phone: [facility] 12-09-2023 10:05-0500 Systolic blood pressure 159 mm[Hg] Caridad Evans MD Work Phone: [facility] 12-09-2023 05:22-0500 Body mass index (BMI) [Ratio] 51.7 kg/m2 Caridad Evans MD Work Phone: [facility] 12-09-2023 05:22-0500 Body temperature 98.4 [degF] Caridad Evans MD Work Phone: [facility] 12-09-2023 05:22-0500 Body weight 145.29 kg Caridad Evans MD Work Phone: [facility] 10-16-2023 21:27-0500 Body temperature 96.91 [degF] Rosaura Mustafa DO Work Phone: [employer] 10-16-2023 21:27-0500 Diastolic blood pressure 59 mm[Hg] Rosaura Mustafa DO Work Phone: [employer] 10-16-2023 21:27-0500 Heart rate 76 /min Rosaura Mustafa DO Work Phone: [facility] [place] 10-16-2023 21:27-0500 Respiratory rate 20 /min Rosaura Mustafa DO Work Phone: [employer] 10-16-2023 21:27-0500 SaO2% (BldA) [Mass fraction] 94 % Rosaura Mustafa DO Work Phone: [employer] 10-16-2023 21:27-0500 Systolic blood pressure 100 mm[Hg] Rosaura Mustafa DO Work Phone: [facility] 10-11-2023 11:21-0500 Body height 167.6 cm Rosaura Mustafa DO [facility] 10-07-2023 16:06-0500 Body mass index (BMI) [Ratio] 51 kg/m2 Rosaura Mustafa DO Work Phone: [employer] 10-07-2023 16:06-0500 Body weight 143.34 kg Rosaura Mustafa DO Work Phone: [facility] 08-19-2023 19:25-0400 Body temperature 97.3 [degF] Aaron Gombash DO [facility] 08-19-2023 19:25-0400 Diastolic blood pressure 60 mm[Hg] Aaron Gombash DO Work Phone: [employer] 08-19-2023 19:25-0400 Heart rate 86 /min Aaron Gombash DO Work Phone: [facility] [place] 08-19-2023 19:25-0400 Respiratory rate 18 /min Aaron Gombash DO Work Phone: [employer] 08-19-2023 19:25-0400 SaO2% (BldA) [Mass fraction] 95 % Aaron Gombash DO Work Phone: [employer] 08-19-2023 19:25-0400 Systolic blood pressure 120 mm[Hg] Aaron Gombash DO Work Phone: [employer] 08-17-2023 12:17-0400 Body height 167.6 cm Aaron Gombash DO Work Phone: [employer] 08-17-2023 12:17-0400 Body mass index (BMI) [Ratio] 54.72 kg/m2 Aaron Gombash DO Work Phone: [facility] [employer] 08-17-2023 12:17-0400 Body weight 153.77 kg Aaron Gombash DO Work Phone: [employer] 08-08-2023 13:35-0400 Diastolic blood pressure 63 mm[Hg] Gayle Trevizo MD Work Phone: [employer] 08-08-2023 13:35-0400 Heart rate 100 /min Gayle Trevizo MD Work Phone: [facility] [employer] 08-08-2023 13:35-0400 Respiratory rate 20 /min Gayle Trevizo MD Work Phone: [facility] [employer] [facility] 08-08-2023 13:35-0400 SaO2% (BldA) [Mass fraction] 93 % Gayle Trevizo MD Work Phone: [facility] [employer] [facility] 08-08-2023 13:35-0400 Systolic blood pressure 122 mm[Hg] Gayle Trevizo MD Work Phone: [employer] 08-08-2023 06:36-0400 Body height 167.6 cm Gayle Trevizo MD Work Phone: [facility] [employer] [facility] 08-08-2023 06:36-0400 Body mass index (BMI) [Ratio] 54.72 kg/m2 Gayle Trevizo MD Work Phone: [facility] 08-08-2023 06:36-0400 Body temperature 98.29 [degF] Gayle Trevizo MD Work Phone: [facility] [employer] 08-08-2023 06:36-0400 Body weight 153.77 kg Gayle Trevizo MD Work Phone: [facility] [employer] [facility] 07-01-2023 11:21-0400 Body temperature 97.59 [degF] Rosaura Mustafa DO Work Phone: [facility] [employer] 07-01-2023 11:21-0400 Diastolic blood pressure 79 mm[Hg] Rosaura Mustafa DO Work Phone: [facility] [employer] [facility] 07-01-2023 11:21-0400 Heart rate 83 /min Rosaura Mustafa DO Work Phone: [facility] [employer] [facility] 07-01-2023 11:21-0400 Respiratory rate 20 /min Rosaura Mustafa DO Work Phone: [facility] [employer] [facility] 07-01-2023 11:21-0400 SaO2% (BldA) [Mass fraction] 94 % Rosaura Mustafa DO Work Phone: [facility] [employer] [facility] 07-01-2023 11:21-0400 Systolic blood pressure 133 mm[Hg] Rosaura Mustafa DO Work Phone: [facility] [employer] 07-01-2023 03:09-0400 Body mass index (BMI) [Ratio] 53.2 kg/m2 Rosaura Mustafa DO Work Phone: [employer] 07-01-2023 03:09-0400 Body weight 149.51 kg Rosaura Mustafa DO Work Phone: [facility] [employer] 03-08-2023 19:30-0400 Body temperature 98.49 [degF] Karlos Osborn DO Work Phone: [employer] 03-08-2023 19:30-0400 Diastolic blood pressure 62 mm[Hg] Karlos Plasencial DO Work Phone: [employer] 03-08-2023 19:30-0400 Heart rate 82 /min Karlos Voll DO Work Phone: [employer] 03-08-2023 19:30-0400 Respiratory rate 18 /min Karlos Plasencial DO Work Phone: [employer] 03-08-2023 19:30-0400 SaO2% (BldA) [Mass fraction] 98 % Karlos Osborn DO Work Phone: [facility] 03-08-2023 19:30-0400 Systolic blood pressure 140 mm[Hg] Karlos Plasencial DO Work Phone: [facility] [place] 03-08-2023 12:54-0400 Body mass index (BMI) [Ratio] 54.07 kg/m2 Karlos Voll DO Work Phone: [facility] 03-08-2023 12:54-0400 Body weight 151.96 kg Karlos Plasencial DO Work Phone: [facility] 02-09-2023 10:39-0400 Diastolic blood pressure 75 mm[Hg] Geronimo Lee MD Work Phone: [facility] 02-09-2023 10:39-0400 Systolic blood pressure 137 mm[Hg] Geronimo Lee MD Work Phone: [facility] 12-08-2020 19:11-0500 BP Diastolic 74 mm[Hg] [facility] [place] 12-08-2020 19:11-0500 BP Systolic 151 mm[Hg] [facility] [place] 12-08-2020 19:11-0500 Pulse (Heart Rate) 70 /min [facility] [place] 12-08-2020 19:11-0500 Pulse Oximetry 98 % [facility] [place] 12-08-2020 19:11-0500 Respiratory Rate 15 /min [facility] [place] 12-08-2020 15:12-0500 Body Temperature 98.71 [degF] [facility] [place] 12-08-2020 15:12-0500 Height 167.6 cm [facility] [place] 11-28-2020 14:37-0500 Body Temperature 97.81 [degF] [facility] [place] 11-28-2020 14:37-0500 BP Diastolic 79 mm[Hg] [facility] [place] 11-28-2020 14:37-0500 BP Systolic 128 mm[Hg] Joel Nelson [facility], [place] 11-28-2020 14:37-0500 Pulse (Heart Rate) 75 /min Joel Nelson [facility] 11-28-2020 14:37-0500 Pulse Oximetry 95 % Joel Nelson [facility] 11-28-2020 14:37-0500 Respiratory Rate 18 /min Joel Nelson [facility] 11-27-2020 15:57-0500 Height 167.6 cm Joel Nelson [facility] 11-27-2020 06:28-0500 BMI (Body Mass Index) 51.21 kg/m2 Joel Nelson [facility] 11-27-2020 06:28-0500 Body weight 143.93 kg Joeljaci Nelson [facility], [place] 09-30-2020 14:21-0500 Body Temperature 98.71 [degF] Art Zeng [facility], [place] 09-30-2020 14:21-0500 BP Diastolic 61 mm[Hg] Art Zeng [facility] 09-30-2020 14:21-0500 BP Systolic 115 mm[Hg] Art Zeng [facility] 09-30-2020 14:21-0500 Pulse (Heart Rate) 107 /min Art Zeng [facility] 09-30-2020 14:21-0500 Pulse Oximetry 97 % [facility] [place] 09-30-2020 14:21-0500 Respiratory Rate 18 /min Art Zeng [facility] 09-30-2020 05:45-0500 BMI (Body Mass Index) 53.34 kg/m2 Art Zeng [facility] 09-30-2020 05:45-0500 Body weight 149.91 kg Art Zeng [facility] 09-26-2020 13:28-0500 Height 167.6 cm Art Zeng [facility] 01-02-2020 12:22-0500 Body Temperature 96.3 [degF] Justin Walsh [facility], [place] 01-02-2020 12:22-0500 BP Diastolic 80 mm[Hg] Justin Walsh [facility] 01-02-2020 12:22-0500 BP Systolic 142 mm[Hg] [facility] [place] 01-02-2020 12:22-0500 Pulse (Heart Rate) 115 /min [facility] [place] 01-02-2020 12:22-0500 Pulse Oximetry 95 % [facility] [place] 01-02-2020 12:22-0500 Respiratory Rate 16 /min Justin Walsh [place], [place] 01-02-2020 12:15-0500 BMI (Body Mass Index) 54.88 kg/m2 Justin Walsh [place], [place] 01-02-2020 12:15-0500 Body weight 154.22 kg Justincarolyn Walsh [place], [place] Comment on above: verbal, arrived in own WC, did not know exact weight of 01-02-2020 12:15-0500 Height 167.6 cm Justin Walsh [place], [place] 06-27-2019 14:00-0400 BP Diastolic 74 mm[Hg] [place] 06-27-2019 14:00-0400 BP Systolic 123 mm[Hg] [place] 06-27-2019 02:01-0400 Pulse (Heart Rate) 90 /min [place] 06-27-2019 02:01-0400 Pulse Oximetry 100 % [place] 06-27-2019 02:01-0400 Respiratory Rate 17 /min [place] 06-26-2019 21:32-0400 BMI (Body Mass Index) 62.46 kg/m2 [place] 06-26-2019 21:32-0400 Body Temperature 98.01 [degF] [place] 06-26-2019 21:32-0400 Body weight 175.54 kg [place] 06-26-2019 21:32-0400 Height 167.6 cm [place] 06-20-2019 15:37-0400 Body Temperature 100.09 [degF] [place] 06-20-2019 15:37-0400 BP Diastolic 76 mm[Hg] [place] 06-20-2019 15:37-0400 BP Systolic 117 mm[Hg] [place] 06-20-2019 15:37-0400 Pulse (Heart Rate) 107 /min [place] 06-20-2019 15:37-0400 Pulse Oximetry 94 % [place] 06-20-2019 15:37-0400 Respiratory Rate 22 /min [place] 06-19-2019 06:11-0400 BMI (Body Mass Index) 56.31 kg/m2 [place] 06-19-2019 06:11-0400 Body weight 158.26 kg [place] 06-14-2019 13:43-0400 Height 167.6 cm [place] Encounters Encounter Date Encounter Type Care Provider Facility Start: 09-05-2025 End: 09-06-2025 Telephone encounter Dany Woodruff APRN - ETL APPLICATION DEVELOPER Work Phone: [facility] Comment on above: Diabetes (BGL) Start: 08-28-2025 ambulatory Jared LEON Faci lity:[facility] Start: 08-23-2025 ambulatory Jared LEON Faci lity:[facility] Start: 07-27-2025 End: 08-01-2025 Telephone encounter Dany Woodruff APRN - ETL APPLICATION DEVELOPER Work Phone: [facility] Comment on above: Diabetes Start: 07-26-2025 End: 07-26-2025 ambulatory DANY WOODRUFF [facility] Start: 07-26-2025 End: 07-26-2025 Office outpatient visit 40 minutes Dany Woodruff APRN - ETL APPLICATION DEVELOPER Work Phone: 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 Comment on above: Diabetes (BGL) Start: 07-19-2025 End: 07-19-2025 ambulatory Jared LEON Facility:[facility] Start: 07-18-2025 End: 07-18-2025 Telephone encounter Dany Woodruff SECURITY CONTROLS ASSESSOR - ETL APPLICATION DEVELOPER Work Phone: [facility] Comment on above: Diabetes (BGL) Start: 07-12-2025 ambulatory Jared LEON Faci lity:[facility] Start: 07-10-2025 End: 07-11-2025 Emergency department patient visit Hermes Issa MD Work Phone: [facility] Comment on above: Acute nonintractable headache, unspecified headache type (Primary Dx); Nausea; Acute cystitis without hematuria; Hyperglycemia Start: 07-10-2025 End: 07-10-2025 ambulatory Jared LEON Facility:[facility] Start: 07-06-2025 End: 07-06-2025 ambulatory Jared LEON Facility:[facility] Start: 07-04-2025 End: 07-11-2025 Telephone encounter Dany Woodruff SECURITY CONTROLS ASSESSOR - ETL APPLICATION DEVELOPER Work Phone: [facility] Comment on above: Diabetes (BGL) Start: 06-27-2025 End: 07-04-2025 Telephone encounter Dany Woodruff SECURITY CONTROLS ASSESSOR - ETL APPLICATION DEVELOPER Work Phone: [facility] Comment on above: Diabetes (BGL) Start: 06-19-2025 End: 06-26-2025 Telephone encounter Dany Woodruff SECURITY CONTROLS ASSESSOR - ETL APPLICATION DEVELOPER Work Phone: [facility] Comment on above: Diabetes (BGL) Start: 06-11-2025 ambulatory Jared Chung lity:[facility] Start: 06-07-2025 End: 06-11-2025 Telephone encounter Gunner Stall PA-C Work Phone: [facility] Comment on above: Diabetes (BGL) Start: 06-07-2025 End: 06-07-2025 ambulatory FARHAD CHAVEZ [facility] Start: 06-07-2025 End: 06-07-2025 Subsequent hospital visit by physician Farhad Chavez MD [facility] [facility] Start: 05-31-2025 End: 06-01-2025 Telephone encounter Gunner Stall PA-C Work Phone: [facility] Comment on above: Diabetes (BGL) Care Coordination (E GD Colon reminder call) Start: 05-14-2025 End: 05-18-2025 Telephone encounter Gunner Stall PA-C Work Phone: [facility] Comment on above: Advice Only (/) Start: 05-10-2025 ambulatory Jared Chung lity:[facility] Start: 05-07-2025 End: 05-07-2025 Telephone encounter Gunner Stall PA-C Work Phone: [facility] Comment on above: Diabetes (BGL) Start: 04-30-2025 End: 05-01-2025 Telephone encounter Gunner Stall PA-C Work Phone: [facility] Comment on above: Diabetes (BGL) Start: 04-17-2025 End: 04-17-2025 Telephone encounter Gunner Stall PA-C Work Phone: [facility] Comment on above: Diabetes Start: 04-06-2025 End: 04-06-2025 ambulatory MITANER STALL [facility] Start: 04-06-2025 End: 04-06-2025 Office outpatient visit 25 minutes Gunner Stall PA-C Work Phone: [facility] Comment on above: Type 2 [...] 03-27-2025 End: 05-23-2025 Telephone encounter Lisa Lopes SECURITY CONTROLS ASSESSOR - CLINICAL TRIALS SPECIALIST Work Phone: [facility] Comment on above: Missed Appointment ( Reschedule ); Diabetes (BGL) Start: 02-27-2025 End: 02-28-2025 Telephone encounter Lisa Lopes SECURITY CONTROLS ASSESSOR - CLINICAL TRIALS SPECIALIST Work Phone: [facility] Comment on above: Diabetes (BGL) Start: 02-26-2025 End: 02-26-2025 ambulatory Jared Linnchad LEON [facility] Work Phone: Start: 02-26-2025 End: 02-26-2025 Departed Referred Jared Guzman [facility] [employer] [facility] Start: 02-26-2025 Registered Referred Jared Guzman [facility] [employer] Start: 02-26-2025 End: 02-26-2025 ambulatory Jared Linnchad LEON Facility:[facility] Start: 02-15-2025 End: 02-16-2025 Telephone encounter Margo Guerrero SECURITY CONTROLS ASSESSOR - CLINICAL TRIALS SPECIALIST Work Phone: [facility] Comment on above: Diabetes (BGL) Start: 02-09-2025 End: 02-09-2025 Subsequent hospital visit by physician Alejandro Mandel APRN - CLINICAL TRIALS SPECIALIST Work Phone: [facility] V[facility] Lab Comment on above: PAD (peripheral oh ry disease) (HCC) Start: 02-09-2025 End: 02-09-2025 ambulatory ALEJANDRO MANDEL [facility] Start: 02-08-2025 End: 02-08-2025 Telephone encounter Herber Ramos SECURITY CONTROLS ASSESSOR - CLINICAL TRIALS SPECIALIST Work Phone: [facility] [place] Comment on above: Results (CT chest wo IV contrast ) Start: 02-07-2025 End: 02-08-2025 Telephone encounter Margo Guerrero SECURITY CONTROLS ASSESSOR - CLINICAL TRIALS SPECIALIST Work Phone: [facility] Comment on above: Diabetes (BGL) Start: 02-07-2025 End: 02-07-2025 ambulatory Jared Esteveschad LEON [facility] Work Phone: Start: 02-07-2025 End: 02-07-2025 Departed Referred Jared Linnchad [facility] Start: 02-07-2025 End: 02-07-2025 ambulatory Jared LEON Facility:[facility] Start: 02-01-2025 End: 02-01-2025 ambulatory ALEJANDRO MANDEL [facility] Start: 02-01-2025 End: 02-01-2025 Office outpatient new 30 minutes Alejandro Mandel SECURITY CONTROLS ASSESSOR - CLINICAL TRIALS SPECIALIST Work Phone: [facility] Vascular Surgery [facility] Comment on above: PAD (peripheral oh ry disease) (HCC) (Primary Dx); Hx of AKA (above knee amputation), right (HCC); Lymphedema of left leg; Morbid obesity (HCC) Start: 01-29-2025 End: 01-31-2025 Telephone encounter Margo Guerrero SECURITY CONTROLS ASSESSOR - CLINICAL TRIALS SPECIALIST Work Phone: [facility] Comment on above: Diabetes (BGL) Start: 01-15-2025 End: 01-22-2025 Telephone encounter Margo Guerrero SECURITY CONTROLS ASSESSOR - CLINICAL TRIALS SPECIALIST Work Phone: [facility] Comment on above: Diabetes (BGL) Start: 01-01-2025 End: 01-02-2025 Telephone encounter Margo Guerrero SECURITY CONTROLS ASSESSOR - CLINICAL TRIALS SPECIALIST Work Phone: [facility] Comment on above: Other (Lab results/B GL) Start: 01-01-2025 End: 01-01-2025 ambulatory MARGO GUERRERO [facility] Start: 01-01-2025 End: 01-01-2025 Office outpatient visit 25 minutes Margo Guerrero APRN - CLINICAL TRIALS SPECIALIST Work Phone: [facility] Comment on above: Type 2 diabetes lee itus with hyperglycemia, with long-term current use of insulin (HCC) (Primary Dx); Type 2 diabetes mellitus with diabetic autonomic neuropathy, with long-term current use of insulin (HCC); Microalbuminuria; Essential hypertension; Mixed hyperlipidemia; Class 3 severe obesity due to excess calories with serious comorbidity and body mass index (BMI) of 45.0 to 49.9 in adult ([facility]) Start: 12-27-2024 End: 12-27-2024 ambulatory Jared Linnchad LEON [facility] Work Phone: Start: 12-27-2024 End: 12-27-2024 Departed Referred Jared Guzman [facility] Start: 12-27-2024 End: 12-27-2024 ambulatory Jared LEON Facility:[facility] Start: 12-21-2024 End: 12-21-2024 Office outpatient new 45 minutes Wanda Livingstonsantiago Sylvester CNP Work Phone: [facility] Gastroenterology [facility] Comment on above: Fecal occult blood t est positive (Primary Dx); History of anemia; Calculus of gallbladder without cholecystitis without obstruction; BMI 50.0-59.9, adult ([facility]) Start: 12-21-2024 End: 12-21-2024 ambulatory [facility] Start: 12-20-2024 End: 12-26-2024 Telephone encounter Margo Guerrero APRN - KRANTHI Work Phone: [facility] Endocrinology [facility] Comment on above: Diabetes (BGL) Start: 12-07-2024 End: 12-07-2024 Office outpatient visit 25 minutes Lilo Rizo MD Work Phone: [facility] General Surgery [facility] Comment on above: Cholecystitis (Prima ry Dx); Morbid obesity (HCC); Class 3 severe obesity with serious comorbidity and body mass index (BMI) of 50.0 to 59.9 in adult, unspecified obesity type (HCC) Start: 12-07-2024 End: 12-07-2024 ambulatory LILO RIZO [facility] Start: 12-05-2024 End: 12-05-2024 ambulatory Jared LEON [facility] Work Phone: Start: 12-05-2024 End: 12-05-2024 Departed Referred Jared Esteveschad [facility] Start: 12-05-2024 Registered Referred Jared Estevesdomo - [employer] [facility] Start: 12-05-2024 End: 12-05-2024 ambulatory Jared LEON Facility:[facility] Start: 11-30-2024 End: 12-01-2024 ambulatory JARED GUZMAN [facility] Start: 11-30-2024 Registered Referred Jared Guzman [facility] [employer] [facility] Start: 11-22-2024 End: 11-22-2024 Telephone encounter Margo Guerrero APRN - CLINICAL TRIALS SPECIALIST Work Phone: [facility] Start: 11-21-2024 End: 11-29-2024 Telephone encounter Margo Guerrero APRN - CLINICAL TRIALS SPECIALIST Work Phone: [facility] Comment on above: Diabetes (BGL) Start: 11-15-2024 End: 11-20-2024 Telephone encounter Margo Guerrero APRN - CLINICAL TRIALS SPECIALIST Work Phone: [facility] Comment on above: Diabetes (BGL) Start: 11-14-2024 End: 11-14-2024 Office outpatient visit 10 minutes Asuncion Valencia APRN - CLINICAL TRIALS SPECIALIST Work Phone: [facility] Surgery [facility] Comment on above: Cholecystitis (Prima ry Dx) Start: 11-14-2024 End: 11-14-2024 ambulatory ASUNCION VALENCIA [facility] Start: 11-13-2024 End: 11-14-2024 Telephone encounter Josie Powell RN [facility] Lung No [facility] Comment on above: Care Coordination (E D Nuance Lung Nodule ) Start: 11-12-2024 End: 11-13-2024 Emergency department patient visit Virgil Mederos MD Work Phone: [facility] ED Comment on above: History of cholecyst itis (Primary Dx) Start: 11-10-2024 End: 11-10-2024 ambulatory ASUNCION VALENCIA [facility] Start: 11-10-2024 End: 11-10-2024 Office outpatient visit 15 minutes Asuncion Valencia SECURITY CONTROLS ASSESSOR - CLINICAL TRIALS SPECIALIST Work Phone: [facility] Comment on above: Cholecystitis (Prima ry Dx) Start: 11-10-2024 End: 11-10-2024 Departed Referred Jared MUNOZ Start: 11-10-2024 End: 11-10-2024 ambulatory Jared LEON Facility:[facility] Start: 10-30-2024 End: 10-30-2024 Telephone encounter Анна Mcmahon SECURITY CONTROLS ASSESSOR - CLINICAL TRIALS SPECIALIST Work Phone: [facility] Comment on above: Diabetes (BGL) Start: 10-30-2024 End: 10-30-2024 Departed Referred Jared MUNOZ Start: 10-30-2024 End: 10-30-2024 ambulatory Jared LEON Facility:[facility] Start: 10-24-2024 End: 10-24-2024 Emergency department patient visit Vicente Mixon MD Work Phone: [facility] ED Comment on above: Hypoglycemic episode in patient with diabetes mellitus (HCC) (Primary Dx) Start: 10-19-2024 End: 10-20-2024 Telephone encounter Lisa Lopes SECURITY CONTROLS ASSESSOR - CLINICAL TRIALS SPECIALIST Work Phone: [facility] Start: 10-18-2024 End: 10-23-2024 Evaluation and management of inpatient Dontrell Woodall Work Phone: [facility] Medical Surgical Unit MSU 4S Comment on above: Acute cholecystitis (Primary Dx) Start: 09-22-2024 End: 09-22-2024 Departed Referred Jared Guzman [facility] Start: 09-22-2024 End: 09-22-2024 ambulatory Jared LEON Facility:[facility] Start: 09-19-2024 End: 09-20-2024 Telephone encounter Geronimo Lee MD Work Phone: [facility] Comment on above: Diabetes (BGL) Start: 09-11-2024 End: 09-12-2024 Telephone encounter Geronimo Lee MD Work Phone: [facility] Comment on above: Diabetes (BGL) Start: 08-08-2024 End: 08-09-2024 Telephone encounter Geronimo Lee MD Work Phone: [facility] Comment on above: Diabetes (BGL) Start: 08-03-2024 End: 08-08-2024 Telephone encounter Geronimo Lee MD Work Phone: [facility] Comment on above: Diabetes (BGL) Start: 07-17-2024 End: 07-18-2024 Telephone encounter Geronimo Lee MD Work Phone: [facility] Comment on above: Diabetes (BGL) Start: 05-02-2024 End: 05-02-2024 Telephone encounter Ryan Wyatt MA [facility] Endocrinology Start: 02-22-2024 Telephone encounter Geronimo ryan MD Work Phone: [facility] Endocrinology Comment on above: Diabetes (BGL) Start: 02-11-2024 End: 05-12-2024 Transcribe Orders Herber Ramos SECURITY CONTROLS ASSESSOR - CLINICAL TRIALS SPECIALIST Work Phone: [facility] Central Scheduling Comment on above: Solitary pulmonary n odule (Primary Dx) Start: 02-11-2024 End: 02-11-2024 Office outpatient visit 15 minutes Herber Ramos SECURITY CONTROLS ASSESSOR - CLINICAL TRIALS SPECIALIST Work Phone: [facility] Pulmonary Care Comment on above: Lung nodule (Primary Dx); JOHN (obstructive sleep apnea); Morbid obesity with BMI of 45.0-49.9, adult (HCC) Start: 01-27-2024 End: 01-28-2024 Emergency department patient visit Fermin Melchor DO Work Phone: [facility] EMERGENCY DEPT Comment on above: Hypoglycemia (Primar y Dx) Start: 01-26-2024 End: 01-27-2024 Emergency department patient visit Art Zeng DO Work Phone: [facility] EMERGENCY DEPT Comment on above: Hypoglycemia (Primar y Dx) Start: 01-22-2024 End: 01-22-2024 Emergency department patient visit Jaquan Morris DO Work Phone: [facility] ED Comment on above: Nausea and vomiting, unspecified vomiting type (Primary Dx); Cystitis Start: 01-20-2024 Telephone encounter Geronimo ryan MD Work Phone: [facility] Clinical Communication Comment on above: Appointment Start: 01-20-2024 End: 01-20-2024 ambulatory [facility] Work Phone: Start: 01-20-2024 End: 01-20-2024 Departed Referred [facility] Start: 01-20-2024 Registered Referred [facility] [employer] Start: 01-19-2024 Telephone encounter Geronimo ryan MD Work Phone: [facility] Medical [facility] Endocrinology Comment on above: Diabetes (BGL) Start: 01-17-2024 End: 01-17-2024 ambulatory [facility] Work Phone: Start: 01-17-2024 End: 01-17-2024 Departed Referred [facility] Start: 01-17-2024 Registered Referred [facility] [employer] Start: 01-13-2024 End: 01-13-2024 ambulatory [facility] Work Phone: Start: 01-13-2024 End: 01-13-2024 Departed Referred [facility] Start: 01-13-2024 Registered Referred [facility] [employer] Start: 01-03-2024 Telephone encounter Josie Dean [facility] Pulmonary and Sleep Medicine Comment on above: Care Coordination (E D Kiaraance Lung Nodule ) Start: 12-31-2023 End: 12-31-2023 ambulatory [facility] Work Phone: Start: 12-31-2023 End: 12-31-2023 Departed Referred [facility] Start: 12-30-2023 End: 12-30-2023 ambulatory [facility] Work Phone: Start: 12-30-2023 End: 12-30-2023 Departed Referred [facility] Start: 12-30-2023 Registered Referred [facility] Start: 12-28-2023 End: 12-29-2023 Emergency department patient visit Edwin Bustos MD Work Phone: [facility] EMERGENCY DEPT Comment on above: Nausea and vomiting, unspecified vomiting type (Primary Dx) Start: 12-28-2023 Telephone encounter Geronimo ryan MD Work Phone: [facility] Endocrinology Comment on above: Diabetes (BGL) Start: 12-23-2023 End: 12-23-2023 Subsequent hospital visit by physician Elda Reaves (Pa) Work Phone: [facility] Nuclear Medicine Comment on above: Nausea with vomiting , unspecified Start: 12-22-2023 End: 12-22-2023 ambulatory [facility] Work Phone: Start: 12-22-2023 End: 12-22-2023 [facility] Start: 12-22-2023 [facility] Start: 12-13-2023 ambulatory Leonela Calix RN [facility] Clinical Communication Start: 12-13-2023 Patient encounter procedure Leonela Calix RN [facility] Clinical Communication Start: 12-09-2023 End: 12-09-2023 Emergency department patient visit Caridad Evans MD Work Phone: [facility] ED Comment on above: Nausea vomiting and diarrhea (Primary Dx); Dehydration Start: 12-06-2023 Telephone encounter Geronimo ryan MD Work Phone: [facility] Endocrinology Comment on above: Diabetes (BGL) Start: 11-24-2023 Transcribe Monique Reaves (Pa) Work Phone: [facility] Central Scheduling Comment on above: Nausea with vomiting , unspecified (Primary Dx) Start: 11-23-2023 Telephone encounter Geronimo ryan MD Work Phone: [facility] Endocrinology Comment on above: Diabetes (BGL) Start: 11-23-2023 End: 11-23-2023 ambulatory [facility] Work Phone: Start: 11-23-2023 End: 11-23-2023 Departed Referred [facility] Start: 11-18-2023 End: 11-18-2023 [facility] Work Phone: Start: 11-18-2023 End: 11-18-2023 Departed Referred [facility] Start: 11-18-2023 Registered Referred [facility] Start: 11-17-2023 End: 11-17-2023 ambulatory [facility] Facility:[facility] Start: 11-09-2023 Telephone encounter Geronimo ryan MD Work Phone: [facility] Endocrinology Comment on above: Advice Only Start: 10-27-2023 End: 10-27-2023 Office outpatient visit 25 minutes Geronimo Lee MD Work Phone: [facility] Endocrinology Comment on above: Type 2 diabetes lee itus with hyperglycemia, with long-term current use of insulin (HCC) (Primary Dx); Mixed hyperlipidemia; Primary hypertension Start: 10-26-2023 End: 10-26-2023 [facility] Work Phone: Start: 10-26-2023 End: 10-26-2023 Departed Referred [facility] Start: 10-07-2023 End: 10-07-2023 Subsequent hospital visit by physician [facility] Exam Room [address] [facility] [address] Comment on above: Arrived Start: 10-07-2023 End: 10-17-2023 Evaluation and management of inpatient Rosaura Mustafa DO Work Phone: [facility] Cardiac Post Intervention Progressive Care Unit CPI PCU 4W Start: 09-20-2023 Telephone encounter Geronimo ryan MD Work Phone: [facility] Endocrinology Comment on above: Diabetes (BGL) Start: 09-20-2023 End: 09-20-2023 Departed Referred [facility] Start: 08-30-2023 Telephone encounter Geronimo ryan MD Work Phone: [facility] Endocrinology Comment on above: Diabetes (BGL) Start: 08-17-2023 End: 08-19-2023 Emergency department patient visit Aaron Burgos DO Work Phone: [facility] Medical Surgical Unit MSU 1E Comment on above: Upper abdominal pain (Primary Dx); Hypoglycemia Start: 08-17-2023 End: 08-17-2023 ambulatory [facility] Work Phone: Start: 08-17-2023 End: 08-17-2023 Departed Referred [facility] Start: 08-11-2023 Telephone encounter Geronimo ryan MD Work Phone: [facility] Endocrinology Comment on above: Diabetes (BGL) Start: 08-08-2023 End: 08-08-2023 Emergency department patient visit Gayle Trevizo MD Work Phone: [facility] ED Comment on above: Pyelonephritis (Prim valeria Dx); Upper abdominal pain; Nausea Start: 08-04-2023 End: 08-04-2023 ambulatory [facility] Work Phone: Start: 08-04-2023 End: 08-04-2023 Departed Referred [facility] Start: 08-02-2023 End: 08-02-2023 Departed Referred [facility] Start: 08-02-2023 Registered Referred [facility] Start: 07-05-2023 Telephone encounter Geronimo ryan MD Work Phone: [facility] Endocrinology Comment on above: Care Coordination (E D Nuance Lung Nodule ) Care Coordination (E D Nuance Lung Nodule/Resp consult for lung nodule) Start: 07-05-2023 End: 07-05-2023 ambulatory [facility] Work Phone: Start: 07-05-2023 End: 07-05-2023 Departed Referred [facility] Start: 06-29-2023 End: 06-29-2023 Evaluation and management of inpatient Art Palmer MD Work Phone: [facility] Start: 06-28-2023 End: 07-01-2023 Emergency department patient visit Rosaura Mustafa DO Work Phone: [facility] 2E TELEMETRY Comment on above: Chest pain, unspecif ied type (Primary Dx) Start: 06-22-2023 Telephone encounter Geronimo ryan MD Work Phone: [facility] Endocrinology Comment on above: Diabetes (BGL) Start: 05-31-2023 End: 05-31-2023 Departed Referred [facility] Start: 05-31-2023 Registered Referred [facility] Start: 05-17-2023 Telephone encounter Geronimo ryan MD Work Phone: [facility] Endocrinology Comment on above: Diabetes (BGL) Start: 05-05-2023 Telephone encounter Geronimo ryan MD Work Phone: [facility] Endocrinology Comment on above: Diabetes (BGL) Start: 04-19-2023 End: 04-19-2023 ambulatory [facility] Work Phone: Start: 04-19-2023 End: 04-19-2023 Departed Referred [facility] Start: 03-30-2023 End: 03-30-2023 ambulatory [facility] Work Phone: Start: 03-30-2023 End: 03-30-2023 Departed Referred [facility] [facility] Start: 03-15-2023 End: 03-15-2023 Departed Referred [facility] Start: 03-08-2023 End: 03-08-2023 Emergency department patient visit Karlos Osborn DO Work Phone: [facility] ED Comment on above: Abdominal pain, gene ralized (Primary Dx); Gastroparesis Start: 02-25-2023 Telephone encounter Geronimo ryan MD Work Phone: [facility] Endocrinology Comment on above: Diabetes (BGL) Start: 02-09-2023 End: 02-09-2023 Office outpatient visit 25 minutes Geronimo Lee MD Work Phone: [facility] Endocrinology Comment on above: Type 2 diabetes lee itus with hyperglycemia, with long-term current use of insulin (CMS/HCC) (HCC) (Primary Dx); Mixed hyperlipidemia; Primary hypertension Start: 01-26-2023 Transcribe Orders Jared moyer Work Phone: [facility] Physician Referral Service Start: 01-13-2023 End: 01-13-2023 ambulatory [facility] Work Phone: Start: 01-13-2023 End: 01-13-2023 Departed Referred [facility] Start: 12-02-2022 End: 12-02-2022 ambulatory [facility] Work Phone: Start: 12-02-2022 End: 12-02-2022 Departed Referred [facility] [facility] Start: 10-27-2022 End: 10-27-2022 ambulatory [facility] Work Phone: Start: 10-27-2022 End: 10-27-2022 Departed Referred [facility] [employer] Start: 06-24-2022 End: 06-24-2022 ambulatory [facility] Work Phone: Start: 06-24-2022 End: 06-24-2022 Departed Referred [facility] [employer] Start: 05-25-2022 End: 05-25-2022 Departed Referred [facility] Start: 04-27-2022 End: 04-27-2022 Departed Referred [facility] Start: 04-13-2022 End: 04-13-2022 Departed Referred [facility] [employer] Start: 04-13-2022 Registered Referred [facility] [employer] Start: 03-02-2022 End: 03-02-2022 Departed Referred [facility] Start: 01-29-2022 End: 01-29-2022 Departed Referred [facility] Start: 01-29-2022 Registered Referred [facility] [employer] [facility] Start: 01-19-2022 End: 01-19-2022 Departed Referred [facility] [employer] Start: 01-19-2022 Registered Referred [facility] [employer] Start: 12-08-2020 End: 12-08-2020 Emergency department patient visit Art Zeng Work Phone: [facility] Comment on above: Bacterial urinary in fection (Primary Dx); Non-intractable vomiting with nausea, unspecified vomiting type; Abdominal pain, unspecified abdominal location Start: 11-22-2020 End: 11-28-2020 Evaluation and management of inpatient Joel Olvin Nelson Work Phone: [facility] 7E Oncology Comment on above: Hypoglycemia (Primar y Dx); Nausea Start: 09-17-2020 End: 09-30-2020 Evaluation and management of inpatient Art Zeng Work Phone: [facility] 2E TELEMETRY Comment on above: Ileus (HCC) (Primary Dx); Nausea and vomiting, intractability of vomiting not specified, unspecified vomiting type; Generalized abdominal pain Start: 01-02-2020 End: 01-02-2020 Subsequent hospital visit by physician Justin Walsh Work Phone: [facility] Comment on above: Arrived Start: 06-26-2019 End: 06-27-2019 Emergency department patient visit Davie Blank Work Phone: [facility] Comment on above: Amputation stump inf ection (HCC) (Primary Dx) Start: 06-14-2019 End: 06-20-2019 Evaluation and management of inpatient Dom Ortiz Work Phone: [facility] Comment on above: Diabetic foot infect ion ([facility]) (Primary Dx); Lactic acidosis; Morbid obesity ([facility]) Start: 01-03-2019 End: 01-03-2019 Patient encounter procedure [facility] Start: 12-27-2018 End: 12-27-2018 Patient encounter procedure [facility] Start: 07-12-2018 End: 07-12-2018 Patient encounter procedure [facility] Start: 06-28-2018 End: 06-28-2018 Patient encounter procedure [facility] Start: 06-14-2018 End: 06-14-2018 Patient encounter procedure [facility] Start: 05-04-2018 Ambulatory [facility] ty:[facility] Start: 04-28-2018 End: 05-06-2018 Evaluation and management of inpatient [facility] Start: 03-18-2018 Ambulatory [facility] ty:[facility] Start: 03-15-2018 End: 03-21-2018 Evaluation and management of inpatient [facility] Start: 02-02-2018 End: 02-08-2018 Evaluation and management of inpatient [facility] Procedures Date Procedure Procedure Detail Performing Clinician Start: 07-10-2025 Assay of troponin quantitative Toi townsend PA-C Work Phone: Start: 07-10-2025 Urnls dip stick/tablet reagent auto microscopy Toi Cole PA-C Work Phone: Start: 07-10-2025 Ct abdomen & pelvis w/contrast material Toi Douglas PA-C Work Phone: Start: 07-10-2025 Blood gases any combination ph pco2 po2 co2 hco3 Toi Douglas PA-C Work Phone: Start: 07-10-2025 Comprehensive metabolic panel ToiWebcollage er PA-C Work Phone: Start: 07-10-2025 Ecg routine ecg w/least 12 lds trcg only w/o i&r Toi Douglas PA-C Work Phone: Start: 06-07-2025 Colonoscopy Farhad Chavez MD Work Phone: Start: 04-06-2025 Hemoglobin glycosylated a1c Kaushal Pluralsight PA-inContact Work Phone: Start: 04-06-2025 Follow-up visit JARED GUZMNA Start: 02-26-2025 Serum inorganic phosphate measurement Jared LEON Start: 02-09-2025 Non-invasive physiologic study extremity 3 niki Mandel SECURITY CONTROLS ASSESSOR - CLINICAL TRIALS SPECIALIST Work Phone: Start: 02-01-2025 Follow-up visit JARED GUZMAN Start: 01-01-2025 Follow-up visit JARED GUZMAN Start: 12-27-2024 Measurement of renal function Jared LEON Comment on above: GFR Calc Start: 12-21-2024 Follow-up visit JARED GUZMAN Start: 12-07-2024 Follow-up visit JARED GUZMAN Start: 11-14-2024 Follow-up visit JARED GUZMAN Start: 11-12-2024 Basic metabolic panel calcium total Ramsey Apodaca SECURITY CONTROLS ASSESSOR - CLINICAL TRIALS SPECIALIST Work Phone: Start: 11-12-2024 Ct abdomen & pelvis w/o contrast material Ramsey Apodaca SECURITY CONTROLS ASSESSOR - CLINICAL TRIALS SPECIALIST Work Phone: Start: 11-10-2024 Urine culture Jared [...] fluid collxn drainag cath periton perq Deborah Gent PA Work Phone: Start: 10-19-2024 Culture bacterial any source anaerobic iso&id Deborah Gent PA Work Phone: Start: 10-19-2024 Prothrombin time Alfredito Baumann MD Work Phone: Start: 10-19-2024 Glucose quantitative blood xcpt reagent strip Álvaro Thomas MD Work Phone: Start: 10-19-2024 Glucose quantitative blood xcpt reagent strip Álvaro Thomas MD Work Phone: Start: 10-19-2024 End: 10-19-2024 Comprehensive metabolic panel Grace Charly DUMONT Work Phone: Start: 10-19-2024 Manual Differential panel - Blood Grace Ra tree DUMONT Work Phone: Start: 10-19-2024 Blood occult peroxidase actv qual feces 1-3 spec Grace Charly DUMONT Work Phone: Start: 10-18-2024 Culture bacterial quanttative colony count urine Dontrell Glojames DO Work Phone: Start: 10-18-2024 Urinalysis complete panel - Urine Grace Ra tree DUMONT Work Phone: Start: 10-18-2024 End: 10-18-2024 Assay of lactate Grace Charly DUMONT Work Phone: Start: 10-18-2024 Us abdominal real time w/image limited Dontrell Jose C DO Work Phone: Start: 10-18-2024 Assay of troponin quantitative Dontrell Anais zman DO Work Phone: Start: 10-18-2024 Ct abdomen & pelvis w/contrast material Dontrell Glokvngman DO Work Phone: Start: 10-18-2024 Ct angiography chest w/contrast/noncontrast Dontrell Nileshman DO Work Phone: Start: 10-18-2024 Comprehensive metabolic panel Dontrelldanis Galloway man DO Work Phone: Start: 10-18-2024 Manual differential performed [Presence] in Blood Dontrell Glozman DO Work Phone: Start: 10-18-2024 Ecg routine ecg w/least 12 lds trcg only w/o i&r Dontrell Glokvngman DO Work Phone: Start: 01-27-2024 Glucose quantitative [...] w/least 12 lds trcg only w/o i&r Ramseyaditya Zavaleta DO Work Phone: Start: 12-23-2023 Gastric [...] 10-09-2023 Drug screen quantitative vancomycin Rachael Robertson SECURITY CONTROLS ASSESSOR - CLINICAL TRIALS SPECIALIST Work Phone: Start: 10-09-2023 End: 10-09-2023 Hemoglobin [...] abdomen & pelvis w/contrast material Rachael Robertson SECURITY CONTROLS ASSESSOR - CLINICAL TRIALS SPECIALIST Work Phone: Start: 10-08-2023 Glucose quantitative blood xcpt reagent strip Mayda Olmstead MD Work Phone: Start: 10-08-2023 Basic metabolic panel calcium total Rachael Robertson SECURITY CONTROLS ASSESSOR - [facility] Work Phone: Start: 10-07-2023 Glucose quantitative blood xcpt reagent strip Ricardo Spring MD Work Phone: Start: 10-07-2023 Procalcitonin (pct) Rachael Robertson SECURITY CONTROLS ASSESSOR - [facility] Work Phone: Start: 10-07-2023 Glucose quantitative blood xcpt reagent strip Ricardo Spring MD Work Phone: Start: 10-07-2023 End: 10-07-2023 Glucose quantitative blood xcpt reagent strip Rosaura Mustafa DO Work Phone: Start: 10-07-2023 Culture bacterial quanttative colony count urine Rosaura Mustafa DO Work Phone: Start: 10-07-2023 Drug tst prsmv instrmnt chem analyzers pr date Rachael Robertson SECURITY CONTROLS ASSESSOR - [facility] Work Phone: Start: 10-07-2023 Urinalysis complete panel [...] 10-07-2023 Drug test def 1-7 classes Rachael Virgil son SECURITY CONTROLS ASSESSOR - CLINICAL TRIALS SPECIALIST Work Phone: Start: 08-19-2023 Glucose quantitative blood [...] Glucose quantitative blood xcpt reagent strip Nabil Gilliam Esterkeisha DO Work Phone: Start: 08-18-2023 Glucose quantitative blood xcpt reagent strip Nabil Gilliam Esterkeisha DO Work Phone: Start: 08-18-2023 Glucose quantitative blood xcpt reagent strip Aaron Burgos DO Work Phone: Start: 08-18-2023 Glucose quantitative blood xcpt reagent strip Aaron Modoymbash DO Work Phone: Start: 08-18-2023 Basic metabolic panel calcium total Nabil Hill DO Work Phone: Start: 08-17-2023 Glucose quantitative blood xcpt reagent strip Aaron Burgos DO Work Phone: Start: 08-17-2023 Urinalysis complete [...] Aaron Pazash DO Work Phone: Start: 08-17-2023 POCT GLUCOSE METER UNSOLICITED RESULTS Aaron Kelley Gombash DO Work Phone: Start: 08-17-2023 Ct abdomen & pelvis w/contrast material Aaron Kelley Gombash DO Work Phone: Start: 08-17-2023 Comprehensive metabolic panel Aaron Kelley Go mbash DO Work Phone: Start: 08-08-2023 Urinalysis complete [...] Glucose quantitative blood xcpt reagent strip Nabil Gilliam Esterle DO Work Phone: Start: 06-29-2023 Ecg routine ecg w/least 12 lds trcg only w/o i&r Nabil Gilliam Esterle DO Work Phone: Start: 06-29-2023 Comprehensive metabolic panel Nabil Gilliam Est erle DO Work Phone: Start: 06-28-2023 Glucose quantitative blood xcpt reagent strip Nabil M Esterle DO Work Phone: Start: 06-28-2023 Glucose quantitative blood xcpt reagent strip Nabil M Esterle DO Work Phone: Start: 06-28-2023 End: 06-28-2023 Assay of troponin quantitative Nabil Gilliam Es terle DO Work Phone: Start: 06-28-2023 [...] Start: 12-08-2020 Radiologic exam chest single view Michfausto Zeng Work Phone: Start: 12-08-2020 Assay of [...] Radiologic exam abdomen 1 view Mhd Teddy Martin Work Phone: Start: 11-28-2020 Gluc bld [...] dev cleared fda spec home use Gabo Penningtono Work Phone: Start: 11-27-2020 Radiologic exam abdomen 1 view Mhd Teddy Martin Work Phone: Start: 11-27-2020 Gluc bld gluc mntr dev cleared fda spec home use Gabo Penningtono Work Phone: Start: 11-27-2020 Comprehensive metabolic panel Leoneal Guerrero Work Phone: Start: 11-26-2020 Gluc bld gluc mntr dev cleared fda spec home use Gabo Penningtono Work Phone: Start: 11-26-2020 Assay of troponin quantitative Gabo wellington Work Phone: Start: 11-26-2020 Ecg routine ecg w/least 12 lds w/i&r Gabo Estrada Work Phone: Start: 11-26-2020 Gluc bld gluc mntr dev cleared fda spec home use Gabo Penningtono Work Phone: Start: 11-26-2020 Glucose quantitative blood xcpt reagent strip Gabo Estrada Work Phone: Start: 11-26-2020 OPERATIVE REPORT 3m Scanning Start: 11-26-2020 Gluc bld gluc mntr dev cleared fda spec home use Gabo Penningtono Work Phone: Start: 11-26-2020 Level iv surg pathology gross&microscopic exam Virgil Marshall Work Phone: Start: 11-26-2020 Gluc bld gluc mntr dev cleared fda spec home use Gabo Penningtono Work Phone: Start: 11-26-2020 Assay of thyroid stimulating hormone tsh Анна Villela Work Phone: Start: 11-25-2020 Gluc bld gluc mntr dev cleared fda spec home use Gabo Penningtono Work Phone: Start: 01-18-2021 Gluc bld gluc mntr dev cleared fda spec home use Art Stapleton Work Phone: Start: 11-25-2020 Radiologic exam abdomen 1 view Art Stapleton Work Phone: Start: 11-25-2020 Gluc bld gluc mntr dev cleared fda spec home use Art Stapleton Work Phone: Start: 11-25-2020 Us transvaginal Reynainga Daniels Work Phone: Start: 11-25-2020 Gluc bld gluc [...] use Art Stapleton Work Phone: Start: 11-24-2020 Assay of troponin quantitative Kylah robles Work Phone: Start: 11-24-2020 Gluc bld gluc mntr dev cleared fda spec home use Art Stapleton Work Phone: Start: 11-24-2020 Assay of troponin quantitative Kylah robles Work Phone: Start: 11-24-2020 Comprehensive metabolic panel Kylah Reed nnarline Work Phone: Start: 11-24-2020 Ecg routine ecg [...] mntr dev cleared fda spec home use Naibl M Esterle Work Phone: Start: 09-28-2020 Gluc [...] Esterle Work Phone: Start: 09-27-2020 COVID-19 Art Rosado Pieter Work Phone: Start: 09-27-2020 Gluc bld gluc [...] Phone: Start: 09-26-2020 Comprehensive metabolic panel Nabil Gilliam Est erle Work Phone: Start: 09-26-2020 Blood count complete auto&auto difrntl wbc Kylah David Work Phone: Start: 09-25-2020 Gluc bld gluc mntr dev cleared fda spec home use Nabil Gilliam Esterle Work Phone: Start: 09-25-2020 Gluc bld gluc mntr dev cleared fda spec home use Nabil Gilliam Esterkeisha Work Phone: Start: 09-25-2020 Echo tthrc r-t 2d w/wom-mode compl spec&colr d Priyank Gabriel Work Phone: Start: 09-25-2020 Radiologic exam abdomen 1 view Nabil Gilliam Es terle Work Phone: Start: 09-25-2020 Gluc bld gluc mntr dev cleared fda spec home use Nabil Gilliam Esterkeisha Work Phone: Start: 09-25-2020 Gluc bld gluc mntr dev cleared fda spec home use Nabil Gilliam Esterkeisha Work Phone: Start: 09-24-2020 Gluc bld gluc mntr dev cleared fda spec home use Nabil Hill Work Phone: Start: 09-24-2020 Gluc bld gluc mntr dev cleared fda spec home use Art Zeng Work Phone: Start: 09-24-2020 Assay of magnesium Priyank Gabriel Work Phone: Start: 09-24-2020 Assay of troponin quantitative Priyank Francesco eem Work Phone: Start: 09-24-2020 Gluc bld gluc mntr dev cleared fda spec home use Nabil Chika Esterle Work Phone: Start: 09-24-2020 Radiologic exam [...] Radiologic exam abdomen 1 view Kylah Marshall unning Work Phone: Start: 09-23-2020 Gluc bld gluc [...] 09-22-2020 Radiologic exam abdomen 1 view Kylah Marshall unning Work Phone: Start: 09-22-2020 Comprehensive metabolic panel [...] dev cleared fda spec home use Art PeraltaJobOn Work Phone: Start: 09-20-2020 Radiologic exam abdomen 1 view Nabil M Es terle Work Phone: Start: 09-20-2020 Gluc bld gluc mntr dev cleared fda spec home use Art Peraltaaci Work Phone: Start: 09-20-2020 Basic metabolic panel calcium total Nabil M Esterle Work Phone: Start: 09-19-2020 Gluc bld gluc mntr dev cleared fda spec home use Art Peraltaaci Work Phone: Start: 09-19-2020 Gluc bld gluc mntr dev cleared fda spec home use Art Escobar [employer] Work Phone: Start: 09-19-2020 [facility] ENDOSCOPY REPORT 3m Scanning Start: 09-19-2020 Level iv surg pathology gross&microscopic exam Sergio Sibley Work Phone: Start: 09-19-2020 Gluc bld gluc mntr dev cleared fda spec home use Art Escobar Azucena Work Phone: Start: 09-19-2020 Radiologic exam abdomen 1 view Kylah robles Work Phone: Start: 09-19-2020 Gluc bld gluc mntr dev cleared fda spec home use Art Escobar Azucena Work Phone: Start: 09-19-2020 Blood count complete auto&auto difrntl wbc Kylah David Work Phone: Start: 09-19-2020 Comprehensive metabolic panel Kylah marks Work Phone: Start: 09-19-2020 MANUAL DIFFERENTIAL Kylah David Work Phone: Start: 09-18-2020 Gluc bld gluc mntr dev cleared fda spec home use Art Escobar Azucena Work Phone: Start: 09-18-2020 End: 09-18-2020 Gluc bld gluc mntr dev cleared fda spec home use Art Escobar Azucena Work Phone: Start: 09-18-2020 Basic metabolic panel calcium total Kylah Daivd Work Phone: Start: 09-18-2020 Gluc bld gluc mntr dev cleared fda spec home use Art Peraltakemi Work Phone: Start: 09-18-2020 Radiologic exam abdomen 1 view Nabil lewis Work Phone: Start: 09-18-2020 Gluc bld gluc mntr dev cleared fda spec home use Art Peraltakemi Work Phone: Start: 09-18-2020 Blood count complete auto&auto difrntl wbc Nabil Gilliam Esterle Work Phone: Start: 09-17-2020 Gluc bld gluc [...] W/ REFLEX TO MG FOR LOW K Marcellakati Dodd Work Phone: Start: 01-02-2020 Blood count hemoglobin Marcella Dodd Work Phone: Start: 06-27-2019 ADD ON LAB TEST Davie Blank Work Phone: Start: 06-26-2019 Assay of lactate Kaci Elliott Work Phone: Start: 06-26-2019 Blood count complete auto&auto difrntl wbc Kaci Elliott Work Phone: Start: 06-26-2019 Blood typing serologic abo Kaci sprague Work Phone: Start: 06-26-2019 C-reactive protein Kaci Rica Elliott Work Phone: Start: 06-26-2019 Comprehensive metabolic [...] Blood count complete auto&auto difrntl wbc Jarek SprainGo Work Phone: Start: 06-19-2019 Gluc bld gluc mntr dev cleared fda spec home use Jayesh Jordan Work Phone: Start: 06-19-2019 Gluc bld gluc mntr dev cleared fda spec home use Jayesh Jordan Work Phone: Start: 06-19-2019 Gluc bld gluc mntr dev cleared fda spec home use Jayesh Jordan Work Phone: Start: 06-19-2019 Blood count complete auto&auto difrntl wbc Jarek SprainGo Work Phone: Start: 06-19-2019 Procalcitonin (pct) Jarek SprainGo Work Phone: Start: 06-18-2019 Gluc bld gluc mntr dev cleared fda spec home use Jayesh Jordan Work Phone: Start: 06-18-2019 Gluc bld gluc mntr dev cleared fda spec home use Dom R Angel Work Phone: Start: 06-18-2019 Gluc bld gluc [...] Start: 06-17-2019 Blood count complete automated Jarek Mainjosefina santos Work Phone: Start: 06-17-2019 Procalcitonin (pct) [...] Blood count complete auto&auto difrntl wbc Jarek Ayouben Work Phone: Start: 06-16-2019 Blood count complete automated Jarek Main rsen Work Phone: Start: 06-16-2019 Drug screen quantitative vancomycin Keily Aruajo Work Phone: Start: 06-15-2019 Gluc bld gluc mntr dev cleared fda spec home use Dom R Ortiz Work Phone: Start: 06-15-2019 Gluc bld gluc mntr dev cleared fda spec home use Dom R Ortiz Work Phone: Start: 06-15-2019 Gluc bld gluc mntr dev cleared fda spec home use Jayesh Chika Jordan Work Phone: Start: 06-15-2019 End: 06-15-2019 Gluc bld gluc mntr dev cleared fda spec home use Jayesh Jordan Work Phone: Start: 06-15-2019 Gluc bld gluc mntr dev cleared fda spec home use Jayesh Chika Jordan Work Phone: Start: 06-15-2019 Blood count complete auto&auto difrntl wbc Jarek Katz Work Phone: Start: 06-15-2019 Blood count complete automated Jarek Main rsen Work Phone: Start: 06-14-2019 Radiologic examination femur minimum 2 views Scooter Deal Work Phone: Start: 06-14-2019 Gluc bld gluc mntr dev cleared fda spec home use Jayesh Gilliam Titi Work Phone: Start: 06-14-2019 Chest x-ray 1 [...] Work Phone: Start: 06-14-2019 Assay of lactate Mariannanicolette Jon Work Phone: Start: 06-14-2019 Basic metabolic panel calcium total Marianna Jon Work Phone: Start: 06-14-2019 Blood count complete auto&auto difrntl wbc Marianna Jon Work Phone: Start: 06-14-2019 C-reactive protein Marianna Emmie Dontrell Work Phone: Start: 06-14-2019 Ketone bodies serum quantitative Marquise Dean Dontrell Work Phone: Start: 06-14-2019 Sedimentation rate rbc automated Marquise Dean Dontrell Work Phone: Start: 06-14-2019 Culture bacterial any [...] for Adults (1 - 1-dose 75+ series) [facility] Start: 06-07-2035 Screening for malignant neoplasm of colon [facility] Start: 2026 RSV Immunization aged 60 or older (1 - 1-dose 60+ series) RSV Immunization aged 60 or older (1 - 1-dose 60+ series) [facility] Start: [address] [facility] Start: 07-10-2026 Diabetes: Estimated Glomerular Filtration Rate for [facility] Diabetes: [facility] Start: 04-19-2026 Glaucoma screening Diabetes: Retinopathy Screening [facility] Start: 04-06-2026 Hemoglobin A1c measurement Diabetes: Hemoglobin A1C [facility] Start: 03-27-2026 Diabetic foot examination Diabetes: Foot Exam [facility] Start: 01-01-2026 Diabetic foot examination Diabetes: Foot Exam [facility] Start: 12-01-2025 Diabetes: Estimated Glomerular Filtration Rate for [facility] Diabetes: Estimated Glomerular Filtration [facility] Start: 11-12-2025 Diabetes: Estimated Glomerular Filtration Rate for [facility] Diabetes: Estimated Glomerular Filtration Rate for [facility] Start: 10-24-2025 Diabetes: Estimated Glomerular Filtration Rate for [facility] Diabetes: Estimated Glomerular Filtration Rate for [facility] Start: 10-23-2025 Diabetes: Estimated Glomerular Filtration Rate for [facility] Diabetes: Estimated Glomerular Filtration Rate for [facility] Start: 10-20-2025 Diabetes: Estimated Glomerular Filtration Rate for [facility] Diabetes: Estimated Glomerular Filtration Rate for [facility] Start: 10-19-2025 Hemoglobin A1c measurement Diabetes: Hemoglobin A1C [facility] Start: 10-19-2025 Screening for malignant neoplasm of colon [facility] Start: 08-31-2025 Glaucoma screening Diabetes: Retinopathy Screening [facility] Start: 08-16-2025 End: 08-16-2025 Patient encounter procedure 08/16/2025 3:30 PM EDT Office Visit [facility] [address] [place] [address] Dany Woodruff APRN - ETL APPLICATION DEVELOPER [address] [facility] [address] [place] [address] [facility] Start: 08-07-2025 End: 08-07-2025 Patient encounter procedure 08/07/2025 3:30 PM EDT Office Visit [facility] [address] [place] [id number] Kaushal Schultz PA-C [address] [place] [address] [facility] Start: 07-26-2025 End: 07-26-2025 Patient encounter procedure 07/26/2025 11:00 AM EDT Office Visit [facility] [address] [place] [address] Dany Woodruff APRN - ETL APPLICATION DEVELOPER [address] [facility] Start: 07-09-2025 COVID-19 Vaccine ( season) COVID-19 Vaccine ( season) [facility] Start: 07-09-2025 Influenza vaccination [facility] Start: 07-07-2025 End: 04-06-2026 Comprehensive metabolic 1998 panel - Serum or Plasma Comprehensive metabolic panel Lab Routine Type 2 diabetes mellitus with hyperglycemia, with long-term current use of insulin (HCC) Microalbuminuria Expected: 07/07/2025 (Approximate), Expires: 04/06/[address] [facility] Work Phone: Comment on above: Expected: 07/07/2025 (Approximate), Expi res: 04/06/2026 Start: 07-07-2025 End: 04-06-2026 Lipid 1996 panel - Serum or Plasma Lipid panel Lab Routine Mixed diabetic hyperlipidemia associated with type 2 diabetes mellitus (HCC) Expected: 07/07/2025 (Approximate), Expires: 04/06/2026 [facility] Comment on above: Expected: 07/07/2025 (Approximate), Expi res: 04/06/2026 Start: 07-07-2025 End: 04-06-2026 Microalbumin/Creatinine panel in random Urine Microalbumin / creatinine urine ratio Lab Routine Type 2 diabetes mellitus with hyperglycemia, with long-term current use of insulin (HCC) Microalbuminuria Expected: 07/07/2025 (Approximate), Expires: 04/06/[address] [facility] Comment on above: Expected: 07/07/2025 (Approximate), Expi res: 04/06/2026 Start: 06-22-2025 Glaucoma screening [facility] Start: 06-07-2025 End: 06-07-2025 Admission to same day surgery center 06/07/2025 11:00 AM EDT - 06/07/2025 12:00 PM EDT [facility] [address] [place] [address] Farhad Chavez MD [address] [place], [place] [id number] COLONOSCOPY [76257 (CPT )] [facility] Endoscopy Comment on above: COLONOSCOPY [49803 (CPT )] Start: 06-07-2025 End: 06-07-2025 Colonoscopy flx dx w/collj spec when pfrmd [facility] Gastroenter[facility] Start: 06-07-2025 End: 06-07-2025 Esophagogastroduodenoscopy transoral diagnostic [facility] Start: 06-07-2025 Subsequent hospital visit by physician 06/07/2025 11:00 AM EDT Hospital Encounter [facility] [address] [place] [address] Farhad Chavez MD [address] [place], [place] [id number] [facility] Start: 03-27-2025 End: 03-27-2025 Patient encounter procedure 03/27/2025 9:00 AM EDT Office Visit [facility] [address] [facility] [address] [place] [phone] Lisa Lopes SECURITY CONTROLS ASSESSOR - CLINICAL TRIALS SPECIALIST [address] [place] [address] [facility] Start: 03-02-2025 End: 03-02-2025 Patient encounter procedure 03/02/2025 11:20 AM EDT Office Visit [facility] Lung Nodule [facility] [address] [place] [address] Herber Ramos APRN - CLINICAL TRIALS SPECIALIST [address] [place] [address] [facility] Lung Nodule [facility] Start: 02-14-2025 Glaucoma screening Diabetes: Retinopathy Screening [facility] Start: 02-09-2025 End: 02-09-2025 Patient encounter procedure 02/09/2025 2:20 PM EDT Appointment [facility] [address] [place] [address] Alejandro Mandel SECURITY CONTROLS ASSESSOR - CLINICAL TRIALS SPECIALIST [address] [facility] [address] [place] [phone] [facility] Start: 02-06-2025 End: 02-10-2025 CT Chest WO contrast CT chest wo IV contrast Imaging Routine Lung nodule Expected: 02/06/2025, Expires: 02/10/2025 [facility] Work Phone: Comment on above: Expected: 02/06/2025, Expires: Start: 02-06-2025 End: 02-06-2025 Patient encounter procedure [facility] Start: 02-06-2025 End: 02-06-2025 Patient encounter procedure 02/06/2025 7:30 AM EDT Appointment [facility] [address] [place] [phone] Herber Ramos, SECURITY CONTROLS ASSESSOR - CLINICAL TRIALS SPECIALIST [address] [place] [address] [facility] [address] [facility] Start: 02-01-2025 End: 02-01-2025 Patient encounter procedure 02/01/2025 9:30 AM EDT Office Visit [facility] Vascular Surgery [facility] [address] [place] [phone] Alejandro Mandel SECURITY CONTROLS ASSESSOR - CLINICAL TRIALS SPECIALIST [address] [place] [phone] [facility] Vascular Surgery [facility] Start: 01-21-2025 Diabetes: Estimated Glomerular Filtration Rate for Kidney [facility] Diabetes: Estimated Glomerular Filtration Rate for Kidney Health [facility] Start: 01-01-2025 End: 01-01-2026 Lipid 1996 panel - Serum or Plasma Lipid panel Lab Routine Mixed hyperlipidemia Expected: 01/01/2025 (Approximate), Expires: 01/01/[address] [facility] Work Phone: Comment on above: Expected: 01/01/2025 (Approximate), Expi res: 01/01/2026 Start: 01-01-2025 End: 01-01-2026 Microalbumin/Creatinine panel in random Urine Microalbumin / creatinine urine ratio Lab Routine Type 2 diabetes mellitus with hyperglycemia, with long-term current use of insulin (HCC) Expected: 01/01/2025 (Approximate), Expires: 01/01/[address] [facility] Comment on above: Expected: 01/01/2025 (Approximate), Expi res: 01/01/2026 Start: 01-01-2025 End: 01-01-2025 Patient encounter procedure 01/01/2025 11:00 AM EST Office Visit [facility] [address] [facility] [address] [place] [phone] Margo Guerrero, SECURITY CONTROLS ASSESSOR - CLINICAL TRIALS SPECIALIST [address] [place] [address] [facility] Start: 12-31-2024 Hemoglobin A1c measurement Diabetes: Hemoglobin A1C [facility] Start: 12-21-2024 End: 12-21-2024 Patient encounter procedure 12/21/2024 8:30 AM EST Office Visit [facility] Gastroenterology - [place] [address] [place] [phone] Wanda Johnson APRN - CLINICAL TRIALS SPECIALIST [address] [place] [address] [facility] Gastroenterology [facility] Start: 12-10-2024 Glaucoma screening Diabetes: Retinopathy Screening [facility] Start: 12-07-2024 End: 12-07-2024 Patient encounter procedure 12/07/2024 1:00 PM EST Office Visit [facility] [address] [facility] [address] [place] [phone] Lilo Rizo MD [address] [place] [address] 10 [place], [place] [phone] [facility] Start: 11-27-2024 End: 11-27-2024 Patient encounter procedure [facility] Start: 11-24-2024 End: 11-10-2025 RF Guidance for percutaneous drainage and placement of drainage catheter of Biliary ducts IR biliary drain check Imaging Routine Cholecystitis Expected: 11/24/2024, Expires: 11/10/[address] [facility] Work Phone: Comment on above: Expected: 11/24/2024, Expires: Start: 11-14-2024 End: 11-14-2024 Patient encounter procedure 11/14/2024 10:15 AM EST Office Visit [facility] [address] [facility] [address] [place] [address] Asuncion Valencia APRN - CLINICAL TRIALS SPECIALIST [address] [facility] [address] [place] [address] [facility] Start: 11-08-2024 Medicare Advantage Annual Wellness Visit Medicare Advantage Annual Wellness Visit [facility] Start: 10-09-2024 Hemoglobin A1c measurement [facility] Start: 07-09-2024 COVID-19 Vaccine ( season) COVID-19 Vaccine () [facility] Start: 07-09-2024 COVID-19 Vaccine () COVID-19 Vaccine () [facility] Start: 07-09-2024 Influenza vaccination [facility] Start: 06-22-2024 Glaucoma screening Diabetes: Retinopathy Screening [facility] Start: 03-14-2024 End: 03-14-2024 Patient encounter procedure 03/14/2024 2:30 PM EDT Office Visit [facility] Endocrinology [address] [place] [address] Carito Thacker SECURITY CONTROLS ASSESSOR - CLINICAL TRIALS SPECIALIST [address] [place] [address] [facility] Start: 02-11-2024 End: 02-10-2025 CT Chest WO contrast CT chest wo IV contrast Imaging Routine Solitary pulmonary nodule Expected: 02/11/2024, Expires: 02/10/2025 [facility] Work Phone: Comment on above: Expected: 02/11/2024, Expires: Start: 02-11-2024 End: 02-11-2024 Patient encounter procedure [facility] Start: 02-10-2024 Hemoglobin A1c measurement Diabetes: Hemoglobin A1C [facility] Start: 02-10-2024 Lipid panel [facility] Start: 01-06-2024 End: 01-06-2024 Patient encounter procedure 01/06/2024 11:30 AM EST Appointment [facility] Imaging [address] [place] [facility] [address] Herber Ramos SECURITY CONTROLS ASSESSOR - CLINICAL TRIALS SPECIALIST [address] [address] [facility] [address] Imaging Start: 12-31-2023 End: 12-31-2023 ambulatory [facility] Start: 12-31-2023 End: 12-31-2023 Patient encounter procedure 12/31/2023 9:40 AM EST Office Visit [facility] [address] [place] [phone] Herber Ramos APRN - CLINICAL TRIALS SPECIALIST [address] [place] [address] [facility] Start: 12-23-2023 End: 12-23-2023 Patient encounter procedure 12/23/2023 9:00 AM EST Appointment [facility] Nuclear Medicine [address] [place] [address] [facility] Nuclear Medicine Start: 12-20-2023 End: 12-20-[address] [facility] [address] Imaging Start: 12-20-2023 End: 12-20-2023 Patient encounter procedure 12/20/2023 10:30 AM EST Appointment [facility] [address] [place] [address] Herber Ramos, JEREMY - CLINICAL TRIALS SPECIALIST [address] [place] [address] [facility] [address] [facility] Start: 11-08-2023 Medicare Advantage Annual Wellness Visit Medicare Advantage Annual Wellness Visit [facility] Start: 10-27-2023 End: 10-27-2023 ambulatory [facility] Start: 10-27-2023 End: 10-27-2023 Patient encounter procedure 10/27/2023 2:00 PM EST Office Visit [facility] [address] [place] [address] Geronimo Lee MD [address] [place] [address] [facility] Start: 10-27-2023 End: 10-27-2023 Telemedicine consultation with patient 10/27/2023 2:00 PM EST Telemedicine [facility] [address] [place] [address] Geronimo Lee MD [address] [place] [address] [facility] Start: 09-17-2023 End: 09-17-2023 Patient encounter procedure 09/17/2023 Office Visit Endocrinology Geronimo Lee MD [address] [facility] [facility] [place] [address] [facility] Start: 09-17-2023 End: 09-17-2023 Patient encounter procedure 09/17/2023 9:10 AM EST Office Visit [facility] [address] [place] [address] Herber Ramos, SECURITY CONTROLS ASSESSOR - CLINICAL TRIALS SPECIALIST [address] [place] [address] [facility] Start: 08-13-2023 End: 08-13-2023 Patient encounter procedure 08/13/2023 11:40 AM EDT Office Visit [facility] [address] [place] [address] Herber Ramos, SECURITY CONTROLS ASSESSOR - CLINICAL TRIALS SPECIALIST [address] [place] [address] [facility] Start: 07-30-2023 End: 07-30-2023 Patient encounter procedure 07/30/2023 9:10 AM EDT Office Visit [facility] [address] [place] [address] Herber Ramos, SECURITY CONTROLS ASSESSOR - CLINICAL TRIALS SPECIALIST [address] [place] [address] [facility] Start: 07-09-2023 COVID-19 Vaccine ( season) COVID-19 Vaccine ( season) [facility] Start: 07-09-2023 Influenza vaccination [facility] Start: 07-09-[address] [facility] Start: 06-29-2023 End: 06-29-2023 Esophagogastroduodenoscopy transoral diagnostic EGD DIAGNOSTIC Nausea and vomiting, unspecified vomiting type 06/29/2023 9:54 AM EDT [facility] Start: 05-11-2023 Hemoglobin A1c measurement Diabetes: Hemoglobin A1C [facility] Start: 10-19-2022 Hemoglobin A1c measurement Diabetes: Hemoglobin A1C [facility] Start: 08-08-2022 Influenza vaccination Influenza Vaccine (#1) [facility] Start: 04-23-2022 COVID-19 Vaccine (4 - Booster for Pfizer series) COVID-19 Vaccine (4 - Booster for Pfizer series) [facility] Start: 04-23-2022 COVID-19 Vaccine (4 - Pfizer series) COVID-19 Vaccine (4 - Pfizer series) [facility] Start: 12-08-2021 Creatinine measurement Creatinine monitoring [place], [place] Start: 12-08-2021 Potassium monitoring Potassium monitoring [place], [place] Start: 11-28-2021 Creatinine measurement Creatinine monitoring [place], [place] Start: 11-28-2021 Potassium monitoring Potassium [place] Start: 09-26-2021 Creatinine measurement Creatinine monitoring [place], [place] Start: 09-26-2021 Potassium monitoring Potassium [place] Start: 08-29-2021 Lipid panel Lipid Panel [facility] Start: 08-23-2021 Lipid panel Lipid screen [place], [place] Start: 02-21-2021 HbA1c (Bld) [Mass fraction] A1C test (Diabetic or Prediabetic) [place], [place] Start: 01-24-2021 End: 01-24-2021 Office Visit 01/24/2021 Office Visit Endocrinology Geronimo Lee MD [address] [place], [place] [phone] [facility] Start: 11-23-2020 End: 11-23-2020 HbA1c (Bld) [Mass fraction] [place], [place] Comment on above: One Time for 1 Occurrences starting 11/08 until 11/23/2020 Start: 07-09-2020 Influenza vaccination Flu vaccine (#1) [place] Start: 06-26-2020 Creatinine monitoring Creatinine monitoring [facility] [place] Start: 06-26-2020 Potassium monitoring Potassium monitoring [facility] Start: 06-20-2020 Creatinine monitoring Creatinine monitoring [facility] Start: 06-20-2020 Potassium monitoring Potassium monitoring [facility] Start: 01-22-2020 End: 01-22-2020 Office Visit 01/22/2020 Office Visit Gynecologic Oncology Justin Walsh MD [address] [facility] [place] [address] [phone] [facility] [place] SALES ADMINISTRATOR Oncology Start: 01-09-2020 End: 01-09-2020 Appointment 01/09/2020 Appointment General Surgery Justin Walsh MD [address] [address] [place] [address] [phone] [facility] General Surgery Start: 09-16-2019 A1C test (Diabetic or Prediabetic) A1C test (Diabetic or Prediabetic) [facility] Start: 07-17-2019 End: 07-17-2019 Office Visit 07/17/2019 Office Visit Gynecologic Oncology Justin Walsh MD [address] [facility] [place] [address] [phone] [facility] [place] SALES ADMINISTRATOR Oncology Start: 07-13-2019 End: 07-13-2019 Office Visit 07/13/2019 Office Visit Gynecologic Oncology Mignon Bynum PA [address] [facility] [address] [place] [phone] [facility] [place] SALES ADMINISTRATOR Oncology Start: 07-09-2019 Influenza vaccination Flu vaccine (#1) [place], [place] Start: 06-28-2019 End: 06-28-2019 Office Visit 06/28/2019 Office Visit Orthopedic Surgery Sergio Pisano MD [address] [facility] [address] [place] [address] [phone] [facility] [place] Start: 06-27-2019 End: 06-27-2019 Hospital Encounter [facility] Dept Comment on above: Canceled (Other) Start: 04-26-2019 Annual Wellness Visit (AWV) Annual Wellness Visit (AWV) [place], [place] Start: 2016 Breast cancer screen Breast cancer screen [place], [place] Start: 2016 Colon cancer screen colonoscopy Colon cancer screen colonoscopy [place], [place] Start: 2016 Screening for malignant neoplasm of breast Breast cancer screen [place], [place] Start: 2016 Screening for malignant neoplasm of colon Colon cancer screen colonoscopy [place] Start: 2016 Shingles (RZV) Vaccine (1 of 2) Shingles (RZV) Vaccine (1 of 2) [facility] Start: 2016 Shingles Vaccine (1 of 2) Shingles Vaccine (1 of 2) [place] Start: 2016 Zoster Vaccines (1 of 2) Zoster Vaccines (1 of 2) [facility] Start: [address] [facility] Start: 2011 Cholesterol [Mass/volume] in Serum or Plasma Cholesterol [facility] Start: 2011 Screening for malignant neoplasm of colon [facility] Start: 2006 Screening for malignant neoplasm of breast [facility] Start: 1996 Screening for malignant neoplasm of cervix [facility] Start: 1987 Cervical cancer screen Cervical cancer screen [place], [place] Start: 1987 Screening for malignant neoplasm of cervix [facility] Start: 1985 DTaP/Tdap/Td vaccine (1 - Tdap) DTaP/Tdap/Td vaccine (1 - Tdap) [place] Start: 1985 DTaP/Tdap/Td Vaccines (1 - Tdap) DTaP/Tdap/Td Vaccines (1 - Tdap) [facility] Start: 1985 Hepatitis B Vaccine (1 of 3 - Risk 3-dose series) Hepatitis B Vaccine (1 of 3 - Risk 3-dose series) [place] Start: 1985 Hepatitis B Vaccines (1 of 3 - 19+ 3-dose series) Hepatitis B Vaccines (1 of 3 - 19+ 3-dose series) [facility] Start: 1985 Pneumococcal Vaccine: 50+ Years (1 of 2 - PCV) Pneumococcal Vaccine: 50+ Years (1 of 2 - PCV) [facility] Start: 1985 Tetanus vaccination Tetanus (Td or Tdap) Booster [facility] Start: 1985 Urine screening for protein Diabetes: Urine Protein Screening [facility] Start: [address] [facility] Start: 1984 Diabetes: Urine Albumin-Creatinine Ratio for Kidney Health Diabetes: Urine Albumin-Creatinine Ratio for Kidney Health [facility] Start: 1984 Diabetic microalbuminuria test Diabetic microalbuminuria test [place], [place] Start: 1984 Hepatitis C screening [facility] Start: 1984 Tetanus + diphtheria + acellular pertussis vaccine (product) Tdap Booster [facility] Start: 1981 HIV screen HIV screen [place], [place] Start: 1981 HIV screening [facility] Start: 1978 Depression Monitoring Depression Monitoring [facility] Start: 1978 Depression Screening Depression Screening [facility] Start: [address] [facility] Start: 1977 DTaP/Tdap/Td vaccine (1 - Tdap) DTaP/Tdap/Td vaccine (1 - Tdap) [place] Start: 1976 [object Object] Diabetic foot exam [place], [place] Start: 1976 Diabetic foot examination [facility] Start: 1976 Diabetic retinal exam Diabetic retinal exam [place], [place] Start: 1976 Glaucoma screening Diabetes: Retinopathy Screening [facility] Start: 1976 Lipid screen Lipid screen [place], [place] Start: 1976 Preventive dental service [facility] Start: 1972 Pneumococcal 0-64 years Vaccine (1 of 1 - PPSV23) Pneumococcal 0-64 years Vaccine (1 of 1 - PPSV23) [place], [place] Start: 1972 Pneumococcal Vaccine: Pediatrics (0 to 5 Years) and At-Risk Patients (6 to 64 Years) (1 - PCV) Pneumococcal Vaccine: Pediatrics (0 to 5 Years) and At-Risk Patients (6 to 64 Years) (1 - PCV) [facility] Start: 1972 Pneumococcal Vaccine: Pediatrics (0 to 5 Years) and At-Risk Patients (6 to 64 Years) (1 of 2 - PCV) Pneumococcal Vaccine: Pediatrics (0 to 5 Years) and At-Risk Patients (6 to 64 Years) (1 of 2 - PCV) [facility] Start: [address] [facility] Start: 1967 MMR Vaccines (1 of 1 - Standard series) MMR Vaccines (1 of 1 - Standard series) [facility] Start: [address] [facility] Start: 04-25-1967 COVID-19 Vaccine (#1) COVID-19 Vaccine (#1) [facility] Start: 1966 Hepatitis B Vaccines (1 of 3 - 3-dose series) Hepatitis B Vaccines (1 of 3 - 3-dose series) [facility] Start: 1966 Hepatitis C screening Hepatitis C screen [place], [place] Start: 1966 HIV screening [facility] Start: 1966 Medicare Advantage Annual Wellness Visit (AWV) Medicare Advantage Annual Wellness Visit (AWV) [facility] Start: 1966 Screening for malignant neoplasm of colon [facility] Start: [address] [facility] End: 10-19-2024 Aerobic and Anaerobic Culture with Stain [facility] Work Phone: Comment on above: Release Upon Ordering for 1 Occurrences starting 10/19/2024 Once (Lab) for 1 Occ urrences starting 10/19/2024 until 10/19/2024 Aerobic and Anaerobi c Culture with Stain Aerobic and Anaerobic Culture with Stain Microbiology Routine 10/19/2024 3:08 PM EST [facility] End: 06-14-2019 Anaerobic Culture Anaerobic Culture Microbiology Routine One Time for 1 Occurrences starting 06/14/2019 until 06/14/2019 [place], [place] Comment on above: One Time for 1 Occurrences starting 05/2019 until 06/14/2019 Bacteria identified in Unspecified specimen by Aerobe culture Culture, Aerobic Bacteria with Gram Stain Microbiology Routine 10/19/2024 3:08 PM EST [facility] Bacteria identified in Unspecified specimen by Anaerobe culture Anaerobic culture Microbiology Routine Acute cholecystitis 10/19/2024 1:52 PM EST [facility] Bacteria identified in Unspecified specimen by Anaerobe culture Anaerobic culture Microbiology Routine 10/19/2024 3:08 PM EST [employer] End: 08-08-2023 Bacteria identified in Urine by Culture [employer] Work Phone: Comment on above: STAT (Lab) for 1 Occurrences starting until 08/08/2023 End: 07-10-2025 Bacteria identified in Urine by Culture [employer] Work Phone: Comment on above: Once (Lab) for 1 Occurrences starting until 07/10/2025 End: 10-13-2023 Blood gases, arterial measurement [employer] Work Phone: End: 08-08-2023 Blood gases, venous measurement Blood gas, venous (ACH and SBH) Lab STAT Once (Lab) for 1 Occurrences starting 08/08/2023 until 08/08/2023 [employer] Work Phone: Comment on above: Once (Lab) for 1 Occurrences starting until 08/08/2023 End: 12-09-2023 Blood gases, venous measurement Blood gas, venous (ACH and SBH) Lab STAT Once (Lab) for 1 Occurrences starting 12/09/2023 until 12/09/2023 [employer] Work Phone: Comment on above: Once (Lab) for 1 Occurrences starting until 12/09/2023 End: 09-18-2020 CBC CBC Lab Routine Tomorrow AM for 1 Occurrences starting 09/18/2020 until 09/18/2020 [facility] Comment on above: Tomorrow AM for 1 Occurrences starting 11/18/2019 until 09/18/2020 End: 09-19-2020 CBC Auto Differential CBC Auto Differential Lab Timed Tomorrow AM for 1 Occurrences starting 09/19/2020 until 09/19/2020 [facility] Comment on above: Tomorrow AM for 1 Occurrences starting 1 11/19/2019 until 09/19/2020 End: 11-25-2020 CBC Auto Differential CBC Auto Differential Lab Timed Tomorrow AM for 1 Occurrences starting 11/25/2020 until 11/25/2020 [facility] Comment on above: Tomorrow AM for 1 Occurrences starting 0 11/25/2020 until 11/25/2020 End: 09-19-2020 Comprehensive metabolic 2000 panel Comprehensive Metabolic Panel Lab Timed Tomorrow AM for 1 Occurrences starting 09/19/2020 until 09/19/2020 [facility] Comment on above: Tomorrow AM for 1 Occurrences starting 1 11/19/2019 until 09/19/2020 Comprehensive metabo lic 2000 panel Comprehensive Metabolic Panel Lab Routine Daily until discontinued starting 11/23/2020, 6 completed [facility] Comment on above: Daily until discontinued starting 2020, 6 completed End: 11-25-2020 Comprehensive metabolic 2000 panel Comprehensive Metabolic Panel Lab Timed Tomorrow AM for 1 Occurrences starting 11/25/2020 until 11/25/2020 [facility] Comment on above: Tomorrow AM for 1 Occurrences starting 0 11/25/2020 until 11/25/2020 Comprehensive Metabo lic Panel w/ Reflex to MG Comprehensive Metabolic Panel w/ Reflex to MG Lab Routine Daily until discontinued starting 06/15/2019, 6 completed [facility] Comment on above: Daily until discontinued starting 2018, 6 completed End: 06-26-2019 Culture Blood #1 Culture Blood #1 Microbiology STAT One Time for 1 Occurrences starting 06/26/2019 until 06/26/2019 [facility] Comment on above: One Time for 1 Occurrences starting 06/08 until 06/26/2019 Culture Blood #1 Culture Blood # 1 Microbiology STAT 06/26/2019 10:05 PM EDT [facility] End: 06-26-2019 Culture Blood #2 Culture Blood #2 Microbiology STAT One Time for 1 Occurrences starting 06/26/2019 until 06/26/2019 [facility] [place] Comment on above: One Time for 1 Occurrences starting 06/08 until 06/26/2019 Culture Blood #2 Culture Blood # 2 Microbiology STAT 06/26/2019 10:05 PM EDT [facility] End: 06-14-2019 Culture, Aerobic Bacteria with Gram Stai Culture, Aerobic Bacteria with Gram Stai Microbiology Routine One Time for 1 Occurrences starting 06/14/2019 until 06/14/2019 [facility] Comment on above: One Time for 1 Occurrences starting 05/2019 until 06/14/2019 End: 12-08-2020 Culture, Urine [facility] [employer] [place] Comment on above: One Time for 1 Occurrences starting 11/10 until 12/08/2020 Once for 1 Occurrenc es starting 12/08/2020 until 12/08/2020 Culture, Urine Culture, Urine Microbiology STAT 12/08/2020 5:14 PM EST [facility] ECG 12 lead ECG 12 lead CV E CG STAT 10/24/2024 11:04 AM [facility] [employer] Work Phone: EKG 12 [facility] Garcia End: 09-18-2020 HbA1c (Bld) [Mass fraction] Hemoglobin A1C Lab Routine One Time for 1 Occurrences starting 09/18/2020 until 09/18/2020 [facility] Comment on above: One Time for 1 Occurrences starting 09/08 until 09/18/2020 Initiate Oxygen Ther apy Protocol Initiate Oxygen Therapy Protocol Respiratory Care Routine Daily until discontinued starting 06/14/2019 [facility] Comment on above: Daily until discontinued starting 2018 End: 06-18-2019 Occult blood x 3, stool Occult blood x 3, stool Lab Routine One Time for 1 Occurrences starting 06/18/2019 until 06/18/2019 [facility] Comment on above: One Time for 1 Occurrences starting 06/08 until 06/18/2019 Oxygen therapy [Mini [facility] Data Set] Initiate Oxygen Therapy Protocol Respiratory Care Routine Daily until discontinued starting 09/18/2020 [facility] Comment on above: Daily until discontinued starting 2019 End: 09-17-2020 POCT Glucose POCT Glucose Point of Care Testing Routine Every 30 Min for 4 Occurrences starting 09/17/2020 until 09/17/2020 [facility] [employer] [place] Comment on above: Every 30 Min for 4 Occurrences starting 09/17/2020 until 09/17/2020 POCT Glucose [facility] Comment on above: As Needed until [...] for 1 Occurrences starting 06/15/2019 until 06/15/2019 [facility] [facility] Comment on above: One Time for 1 Occurrences starting 06/2019 until 06/15/2019 End: 06-16-2019 POCT Glucose POCT Glucose Point of Care Testing Routine One Time for 1 Occurrences starting 06/16/2019 until 06/16/2019 [facility] Comment on above: One Time for 1 Occurrences starting 07/2019 until 06/16/2019 Procalcitonin Procalcitonin La b Routine Q48H until discontinued starting 06/14/2019, 3 completed [facility] [place] Comment on above: Q48H until discontinued starting 019, 3 completed End: 11-26-2020 Troponin I.cardiac [Mass/Vol] Troponin Lab Timed One Time for 1 Occurrences starting 11/26/2020 until 11/26/2020 [facility] Comment on above: One Time for 1 Occurrences starting 11/08 until 11/26/2020 Immunizations Immunization Date Immunization Notes Care Provider Argenis lopez 10-19-2024 influenza vaccine tiss-cult subunt (Flucelvax) STANDARD-DOSE injection 0.5 mL Dontrell Glozman DO Work Phone: [facility] 08-18-2023 influenza vac subuni t quadrivalent (Flucelvax) injection 0.5 mL Aaron Burgos DO Work Phone: [facility] 02-26-2022 Covid-19, Pfizer Gra y Top, Do Not Dilute, (Age 12 Y+), Im L Geronimo Lee MD Work Phone: [facility] 08-12-2021 influenza, injectabl e, quadrivalent, preservative free Geronimo Lee MD Work Phone: [facility] 08-12-2021 Rosaura Woodson Work Phone: [facility] 08-12-2021 influenza virus vacc ine, unspecified formulation Geronimo Lee MD Work Phone: [facility] 12-04-2020 Pfizer SARS-CoV-2 Vaccination Geronimo Lee MD Work Phone: [facility] 11-13-2020 Pfizer SARS-CoV-2 Vaccination Geronimo Lee MD Work Phone: [facility] 01-14-2019 influenza, injectabl e, quadrivalent, preservative free Dom Ortiz [facility] [place] 01-14-2019 Influenza, Quadv, 6 mo and older, IM, PF (Flulaval, Fluarix) Justin Walsh [facility], [place] 01-14-2019 Rosaura Vuong O Work Phone: [facility] NEGATED: Highlighted row has not occurred!10-09-2023 Influenza, injectable, [facility]in [place] Canine Kidney, preservative free, quadrivalent Rosaura Mustafa DO Work Phone: [facility] Comment on above: Deferred: Contraindi cation - patient received at facility Payers Date Payer Category Payer Medicaid HMO [id number] 2024 Medicare [id number] 2024 Self-pay [id number] 2024 Unknown [id number] 2022 Medicare [id number] 2022 Medicare HMO [id number] 2022 Private Health Insurance [facility] [id number] 20[place] [address] [address] [address] [place] [address] Medicare HMO [id number] 2022 [place] [id number] 2022-Present [address] [place] [address] Medicaid [id number] 2017 Private Health Insurance [facility] DUAL xxxxxxxxx 2017-Present [address] [place] [address] xxxxxxxxx [id number] 1959 Private Health Insurance [id number] Unknown [id number]. 462 Unknown [id number] [id number]. 462 Unknown [id number] 2.16.840.1.955510.3.579.2. 462 Unknown [id number] 2.16.840.1.492548.3.579.2. 462 Unknown [id number] 2.16.840.1.700900.3.579.2. 462 Unknown [id number] 2.16.840.1.880325.3.579.2. 462 Unknown [id number] 2.16.840.1.378948.3.579.2. 462 Unknown [id number] 2.16.840.1.731340.3.579.2. 462 Unknown [id number] 2.16.840.1.591541.3.579.2. 462 Unknown [id number] 2.16.840.1.569961.3.579.2. 462 Unknown [id number] 2.16.840.1.675018.3.579.2. 462 Unknown [id number] 2.16840.1.088280.3.579.2. 462 Unknown [id number] 2.16840.1.591097.3.579.2. 462 Unknown [id number] [id number]. 462 Unknown [id number] [id number]. 462 Unknown [id number]. 462 Social History Date Type Detail Facility Start: 06-26-2019 End: 02-01-2025 Tobacco smoking status NHIS Never smoker [place], [place] Start: 06-26-2019 End: 10-19-2024 Alcohol intake No [facility] Start: 1965 Sex Assigned At Not on file [place] Start: 01-02-2020 End: 07-26-2025 Alcohol intake Current non-drinker of alcohol (finding) [place], [place] Start: 09-20-2020 End: 02-01-2025 Tobacco use and exposure Never used [place], [place] Start: 01-30-2023 End: 03-08-2023 Exposure to SARS-CoV-2 (event) Not sure [place], [place] Start: 1965 Sex Assigned At Male [facility] Tobacco smoking status [facility] Tobacco [facility] consumption [facility] Work Phone: Start: 03-08-2023 History SDOH Alcohol Frequency 1 [facility] Start: 03-08-2023 History SDOH Alcohol Std Drinks 0 [facility] Start: 03-08-2023 End: 10-19-2024 History of Social function [facility] How often to you hav e a drink containing alcohol? Never [facility] How many standard drinks containing alcohol do you have on a typical day? Patient does not drink [facility] Start: 08-27-2022 Gender identity Identifies as male gender (finding) [facility] Within the last year , have you been afraid of your partner or ex-partner? No [facility] Start: 1965 Sex Assigned At Female [facility] How often to you hav e a drink containing alcohol? Monthly or less [facility] How many standard drinks containing alcohol do you have on a typical day? 1 or 2 [facility] Start: 06-08-2022 End: 02-28-2025 Sex Female (finding) [facility] Do you feel stress - tense, restless, nervous, or anxious, or unable to sleep at night because your mind is troubled all the time - these days [OSQ] Only a little [facility] (I/We) worried whether (my/our) food would run out before (I/we) got money to buy more. Never true [facility] How often do you nee d to have someone help you when you read instructions, pamphlets, or other written material from your doctor or pharmacy [SILS] Sometimes [facility] NEGATED: Highlighted rowStart: NINF History of tobacco use Passive smoker [facility] Clinical Notes 11-28-2020 to 09-11-2025 Telephone Encounter - Alma Delia Trimble RN - 09/11/2025 2:48 PM ESTTelephone Encounter - Alma Delia Trimble RN - 09/11/2025 2:48 PM ESTTelephone Encounter - JEREMY Neal - 09/06/2025 9:25 AM EDT Note Date & Type Note Facility 09-11-2025 Telephone encounter Note Spoke to nurse and advised to no longer send. Nurse voiced understanding [facility] 09-11-2025 Miscellaneous Notes Spoke to nurse and advised to no longer send. Nurse voiced understanding Diabetes managed by facility provider, no need to send [facility] BGL. Thank you Images from the original note were not included. Patient's BGL documented in this encounter [facility] 09-06-2025 Telephone encounter Note Diabetes managed by facility provider, no need to send [facility] BGL. Thank you [facility] 09-06-2025 Miscellaneous Notes Diabetes managed by facility provider, no need to send [facility] BGL. Thank you Images from the original note were not included. Patient's BGL documented in this encounter [facility] 09-05-2025 Telephone encounter Note Images from the original note were not included. Patient's BGL [facility] 07-30-2025 Telephone encounter Note Faxed Recent Chart note to [employer] [facility] 07-30-2025 Miscellaneous Notes Faxed Recent Chart note to [employer] [facility] documented in this encounter [facility] 07-27-2025 Telephone encounter Note Lease fax last OV to [facility], [facility] 07-26-2025 History of Presen t illness Narrative Images from the original note were not included. [facility] [address] [place] [address] Dept: [phone] Dept Loc: [phone] Visit type: Reason for Visit: Diabetes Mellitus (Follow up) Assessment and Plan 1. Type 2 diabetes mellitus with hyperglycemia, with long-term current use of insulin ([facility]) 2. Insulin resistance 3. Type 2 diabetes mellitus with peripheral neuropathy ([facility]) 4. Hypertension associated with type 2 diabetes mellitus ([facility]) 5. Type 2 diabetes mellitus with hyperlipidemia ([facility]) ([facility]) Goal A1C = 7% Lab Results Component [...] HPI PCP = Jared Guzman [facility] Initial [facility] Endo Office visit: 01/24/2022 RAN: 04/06/25 Kemal [...] stated that they are currently in the [facility]. If the patient is a minor, [...] crackers, fruit Dinner: meat, veg, carbs Salad, citizen of [place] or ranch dressing Beverages: Crystal light, Diet [...] found for: CHOLHDLRATIO No results found for: [id number] No results found for: "THYROID" Imaging/Testing: I [...] directly. Electronically signed by Celina Woodruff MSN, SECURITY CONTROLS ASSESSOR, ACNS-, [facility] Clinical Nurse Specialist and Certified Diabetes Care and Inspector [employer] on 07/27/2025 6:44 PM Dany Woodruff APRN - ETL APPLICATION DEVELOPER [1] No Known Allergies [2] Current Outpatient [...] side (HCC) Anxiety disorder Bipolar 1 disorder ([facility]) Blood circulation, collateral Cellulitis chronic L lower leg COVID 12/08/2021 Depression Diabetes mellitus ([facility]) Type II, on insulin Disease of blood and blood forming organ Endometrial carcinoma ([facility]) 11/25/2020 Endometrial hyperplasia Foot ulcer (HCC) Hx of blood clots RLE prior to amputation Hyperlipidemia Hypertension Lymphedema 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, RLE Morbidly obese ([facility]) Muscle weakness Osteomyelitis (HCC) Osteomyelitis (HCC) 2019 RLE Other lack of coordination Other specified soft tissue disorders Other symbolic dysfunctions Schizophrenia ([facility]) Sleep apnea no CPAP Venous insufficiency [4] Past Surgical History: Procedure Laterality Date ABCESS DRAINAGE Right 09/09/2018 FOOT; [facility] COLONOSCOPY 09/19/[address] Hyde COLONOSCOPY N/A 06/07/2025 Performed by Farhad Chavez MD at [facility] ENDOSCOPY DILATION AND CURETTAGE OF UTERUS 05/18/2019 ESOPHAGOGASTRODUODENOSCOPY 06/07/2025 Dr. Chavez @ [facility], no specimens HYSTEROSCOPY 12/23/2021 LEG AMPUTATION THROUGH KNEE Right 06/16/2019 UPPER GASTROINTESTINAL ENDOSCOPY N/A 06/29/2023 Dr Sergio Sibley at [facility]; no specimens WISDOM TOOTH EXTRACTION [5] Family History Problem Relation Name Age of Onset No Known Problems Mother No Known Problems Father documented in this encounter [facility] 07-24-2025 Telephone encounter Note Spoke with nurse Bales at the facility. Confirmed the appointment date and time. Agrees to bring recommended documents. The PCP is Dr Jared Guzman [facility] 07-24-2025 Miscellaneous Notes Spoke with nurse Bales [...] included. Patient's BGL documented in this encounter [facility] 07-24-2025 Telephone encounter Note Patient has appointmnet [...] may be managing insulin doses. Thank you [facility] Work Phone: 07-23-2025 Telephone encounter Note Images from the original note were not included. Patient's BGL [facility] 07-23-2025 Telephone encounter Note Spoke with PASTORA Barrera. She verbalized and understand below TE. [facility] 07-23-2025 Miscellaneous Notes Spoke with PASTORA Barrera. [...] included. Patient's BGL documented in this encounter [facility] 07-20-2025 Telephone encounter Note I reviewed blood [...] recommend decreasing doses at this time. Thanks [facility] 07-20-2025 Miscellaneous Notes I reviewed blood sugar [...] included. Patient's BGL documented in this encounter [facility] 07-19-2025 Telephone encounter Note Scanned, see in the media tab. [facility] 07-19-2025 Miscellaneous Notes Scanned, see in the media tab. Called to the facility, said they will fax it. Left a VM to faxed us the MAR and med list. Images from the original note were not included. Patient's BGL documented in this encounter [facility] 07-19-2025 Telephone encounter Note Called to the facility, said they will fax it. [facility] 07-18-2025 Telephone encounter Note Left a VM to faxed us the MAR and med list. [facility] 07-18-2025 Telephone encounter Note Images from the original note were not included. Patient's BGL [facility] 07-11-2025 Note Sinus rhythm Abnormal R-wave progression, late transition Left ventricular hypertrophy Borderline prolonged QT interval Electronically Signed On 07-11-2025 00:56:[address] [facility] 07-11-2025 Note Sinus rhythm Abnormal R-wave progression, late transition Left ventricular hypertrophy Borderline prolonged QT interval Electronically Signed On 07-11-2025 00:56:[address] [facility] 07-11-2025 Note IMPRESSION: Sinus rhythm Abnormal R-wave progression, late transition Left ventricular hypertrophy Borderline prolonged QT interval Electronically Signed On 07-11-2025 00:56:44 EDT by [facility] 07-10-2025 Hospital Discharg e tayla Cole PA-C [...] other concerning symptoms. documented in this encounter [facility] 07-10-2025 Emergency department Note Pt here to the ER via EMS from [facility] c/o headache and nausea for the last couple of days. documented in this encounter [facility] 07-10-2025 Emergency department Triage note Pt here to the ER via EMS from [facility] c/o headache and nausea for the last couple of days. [facility] 07-05-2025 Telephone encounter Note Appointment scheduled on 07/26 at 11am [facility] 07-05-2025 Miscellaneous Notes Appointment scheduled on 07/26 at 11am Images from the original note were not included. Patient's BGL 04/26-07/02/2025 documented in this encounter [facility] 07-04-2025 Telephone encounter Note Images from the original note were not included. Patient's BGL 04/26-07/02/[address] [facility] 07-04-2025 Telephone encounter Note I called the facility to request another copy. [facility] 07-04-2025 Miscellaneous Notes I called the facility to request another copy. The pages are cut off I cannot see the doses completely Images from the original note were not included. Patient's BGL documented in this encounter [facility] 06-29-2025 Telephone encounter Note Downloaded blood glucose log and insulin administration MAR to media tab for the period of 06/08 through 06/29 for provider review. [facility] 06-29-2025 Miscellaneous Notes Downloaded blood glucose log and insulin administration MAR to media tab for the period of 06/08 through 06/29 for provider review. Spoke with Susan KIM at the [facility] and requested a new BGL with accompanying [...] BGL by provider. Fax number provided was [phone] Spoke with RN caring for Maria Luisa at the facility regarding need for MAR for 05/29 through 06/18 to be faxed for provider review for use of SSI and any missed doses. She states she will fax the MAR records from 05/29 - 06/18 to [phone]. Please ask for MAR and med list I need to know if SS is ever used. Thank you Images from the original note were not included. Patient's BGL documented in this encounter [facility] 06-29-2025 Telephone encounter Note Spoke with Susan KIM at the [facility] and requested a new BGL with accompanying insulin administration record for 06/08-06/29 for provider review. States she will send it herself. Will watch for information and upload into media tab. [facility]28[facility]25 Telephone encounter Note The pages are cut off I cannot see the doses completely [facility] Phone: 06-27-2025 Telephone encounter Note Images from the original note were not included. [facility] 06-26-2025 Telephone encounter Note Spoke with Sheri GUILLORY at the facility. She will re-fax the insulin administration records for 05/29-06/18 for comparison with the BG log sent previously. [facility] 06-22-2025 Telephone encounter Note Unfortunately half the document is cut off I cannot see what the Humulin U-500 base dose is, its on 1 page On the second page I can see the sliding scale [facility] Phone: 06-22-2025 Telephone encounter Note Scanned faxed MAR from facility into media tab for dates 06/08/25 - 06/22/25 [facility] 06-21-2025 Telephone encounter Note Spoke with Sheri GUILLORY at the facility who says she will fax the MAR record for 05/29 through 06/18 for comparison with the BGL by provider. Fax number provided was [phone] [facility] 06-20-2025 Telephone encounter Note Spoke with RN caring for Maria Luisa at the facility regarding need for MAR for 05/29 through 06/18 to be faxed for provider review for use of SSI and any missed doses. She states she will fax the MAR records from 05/29 - 06/18 to [phone]. [facility] 06-20-2025 Telephone encounter Note Please ask for MAR and med list I need to know if SS is ever used. Thank you [facility] 06-19-2025 Telephone encounter Note Images from the original note were not included. Patient's BGL [facility] 06-07-2025 Telephone encounter Note Images from the original note were not included. Patient's BGL [facility] 06-07-2025 Miscellaneous Notes Images from the original note were not included. Patient's BGL documented in this encounter [facility] 06-07-2025 Nurse Note Spoke with Ninfa at [facility] and updated her about of the patient's procedures being cancelled due to low oxygen levels after the start of the EGD. Advised that per Dr. Chavez patient will need cardiac and pulmonary clearance prior to any future endoscopy procedures. See MD report. Skilled transport to arrive at 12:30 to take patient back to [facility]. At 12:55 spoke with transport company [phone] who said it would be another 30 minutes before they would arrive. Patient given shannon crackers and roselia enriqueta for complaints of hunger. [facility] 06-07-2025 Miscellaneous Notes Spoke with Ninfa at [facility] and updated her about of the patient's procedures being cancelled due to low oxygen levels after the start of the EGD. Advised that per Dr. Chavez patient will need cardiac and pulmonary clearance prior to any future endoscopy procedures. See MD report. Skilled transport to arrive at 12:30 to take patient back to [facility]. At 12:55 spoke with transport company [phone] who said it would be another 30 minutes before they would arrive. Patient given shannon crackers and roselia enriqueta for complaints of hunger. [facility] Name: Will Jacinto Procedure Date: 06/07/2025 10:37 AM Gender: Female Date of : 1965 Age: 59 Admit Type: Outpatient Note Status: Finalized Endoscopist: Farhad Chavez MD, [id number] Procedure: Upper GI endoscopy Indications: h/o anemia, [...] This was discussed with Anesthesia doctor and TOILET AND LAUNDRY SOAP SUPERVISOR who were in the procedure room and [...] by the physician, the nurse and the shell trim tool setter in the pre-procedure area in the procedure [...] 06/07/2025 10:37 AM documented in this encounter [facility] 06-07-2025 Note Pt saturation starte d falling dropped and procedure was stopped. Procedure aborted for safety. [facility] 06-07-2025 Nurse Note Pt saturation started falling dropped and procedure was stopped. Procedure aborted for safety. [facility] 06-07-2025 Nurse Note Pt saturation started falling dropped and procedure was stopped. Procedure aborted for safety. Spoke with patient's niece Jovana Quesada regarding consent for procedure. She states that patient is able to sign his own consents. documented in this encounter [facility] 06-07-2025 Procedure note [facility] Name: Will Jacinto Procedure Date: 06/07/2025 10:37 AM Gender: Female Date of : 1965 Age: 59 Admit Type: Outpatient Note Status: Finalized Endoscopist: Farhad Chavez MD, [id number] Procedure: Upper GI endoscopy Indications: h/o anemia, [...] This was discussed with Anesthesia doctor and TOILET AND LAUNDRY SOAP SUPERVISOR who were in the procedure room and [...] by the physician, the nurse and the shell trim tool setter in the pre-procedure area in the procedure [...] 0 Note Initiated On: 06/07/2025 10:[address] [facility] 06-07-2025 Note Spoke with patient's nidarrell Quesada regarding consent for procedure. She states that patient is able to sign his own consents. [facility] 06-07-2025 Nurse Note Spoke with patient's niece Jovana Quesada regarding consent for procedure. She states that patient is able to sign his own consents. [facility] 06-07-2025 History and physical note GASTROENTEROLOGY PHYSICIAN [...] (HCC) Sleep apnea no CPAP Venous insufficiency [employer] Work Phone: 06-07-2025 Note [facility] 06-07-2025 History and physical [...] blood and blood forming organ Endometrial carcinoma ([facility]) 11/25/2020 Endometrial hyperplasia Foot ulcer ([facility]) Hx of blood clots RLE prior to amputation Hyperlipidemia Hypertension Lymphedema MDRO (multiple drug resistant organisms) resistance hx CRE and MRSA in 2018, RLE Morbidly obese (HCC) Muscle weakness Osteomyelitis (HCC) Osteomyelitis (HCC) 2019 RLE Other lack of coordination Other specified soft tissue disorders Other symbolic dysfunctions Schizophrenia (HCC) Sleep apnea no CPAP Venous insufficiency documented in this encounter [facility] 06-04-[address] Farhad Chavez EGD/Colonoscopy Date: 06/07/25 Arrival time: 10:00 am Please report to: [place] [id number] Spoke with Nabil at [facility] , confirmed patient will attend scheduled procedure. All questions or concerns addressed. Pt has prep medication on hand. Prep instructions sent via [employer] if active. [facility] 06-04-[address] Farhad Chavez EGD/Colonoscopy Date: 06/07/25 Arrival time: 10:00 am Please report to: [facility] [address] [place] [address] Spoke with Nabil at [facility] , confirmed patient will attend scheduled procedure. All questions or concerns addressed. Pt has prep medication on hand. Prep instructions sent via [employer] if active. Dr. Farhad Chavez EGD/Colonoscopy Date: 06/07/25 Arrival time: 10:00 am Please report to: [facility] [address] [place] [address] Spoke with Jose Raul at [facility] , confirmed patient will attend scheduled procedure. All questions or concerns addressed. Pt has prep medication on hand. Prep instructions sent via [employer] if active. Prep instructions faxed to [facility] Attn: Jose Raul. [phone] documented in this encounter [facility] 06-01-2025 Telephone encounter Note I have reviewed [...] [] Other () Med rec updated: NA [facility] 06-01-2025 Miscellaneous Notes I have reviewed the [...] included. Patient's BGL documented in this encounter [facility] 05-31-2025 Telephone encounter Note Images from the original note were not included. Patient's BGL [facility] 05-31-[address] Farhad Chavez EGD/Colonoscopy Date: . 06/07/25 Arrival time: 10:00 am Please report to: [place] [address] Spoke with Jose Raul at [facility] , confirmed patient will attend scheduled procedure. All questions or concerns addressed. Pt has prep medication on hand. Prep instructions sent via [employer] if active. Prep instructions faxed to [facility] Attn: Jose Raul. [phone] [facility] 05-18-2025 Telephone encounter Note Called [facility] and talk with nurse, she don't know and transfer to ergonomist, put me in hold for 25 min and never answer, if they call back please ask what they need . Thank you. [facility] 05-18-2025 Miscellaneous Notes Called [facility] and talk with nurse, she don't know and transfer to ergonomist, put me in hold for 25 min and never answer, if they call back please ask what they need . Thank you. Not sure what is being asked. Did not order dietary restrictions, only recommendations. Please advise! Name of caller: Lisa Contact phone number: [phone] Relationship to Patient: Nurse at [facility] Provider: KELLEY Schultz Practice: Endo Chief Complaint/Reason for Call: Patient is being non compliant with no low carb diet restrictions. They are asking for an order to go back to unrestricted diet. Please advise. Best time of day caller can be reached: Any Patient advised that office/PCP has 24-48 business hours to return their call: Yes documented in this encounter [facility] 05-18-2025 Telephone encounter Note Not sure what is being asked. Did not order dietary restrictions, only recommendations. [facility] 05-14-2025 Telephone encounter Note Please advise! [facility] 05-14-2025 Telephone encounter Note Name of caller: Lisa Contact phone number: [phone] Relationship to Patient: Nurse at [facility] Provider: KELLEY Schultz Practice: Endo Chief Complaint/Reason for Call: Patient is being non compliant with no low carb diet restrictions. They are asking for an order to go back to unrestricted diet. Please advise. Best time of day caller can be reached: Any Patient advised that office/PCP has 24-48 business hours to return their call: Yes [facility] 05-07-2025 Telephone encounter Note Called patient's [facility] and informed. [facility] 05-07-2025 Miscellaneous Notes Called patient's [facility] and informed. Continue current doses Recommend future BGLs be sent in 4 week intervals. Or sooner if experiencing hypoglycemia or persistent elevations. Images from the original note were not included. Patient's BGL documented in this encounter [facility] 05-07-2025 Telephone encounter Note Continue current doses Recommend future BGLs be sent in 4 week intervals. Or sooner if experiencing hypoglycemia or persistent elevations. [facility] 05-07-2025 Telephone encounter Note Images from the original note were not included. Patient's BGL [facility] 05-01-2025 Telephone encounter Note Called patient nurse at [facility] and informed. [facility] 05-01-2025 Miscellaneous Notes Called patient nurse at [facility] and informed. Blood glucose log variable. 6/18-6/19 elevated. 6/20-6/23 at goal except for one check. Continue current doses and limit carbs/improve diet. Recommend future BGLs be sent in 4 week intervals. Or sooner if experiencing hypoglycemia or persistent elevations. Images from the original note were not included. Patient's BGL documented in this encounter [facility] 05-01-2025 Telephone encounter Note Blood glucose log variable. 6/18-6/19 elevated. 6/20-6/23 at goal except for one check. Continue current doses and limit carbs/improve diet. Recommend future BGLs be sent in 4 week intervals. Or sooner if experiencing hypoglycemia or persistent elevations. [facility] 04-30-2025 Telephone encounter Note Images from the original note were not included. Patient's BGL [facility] 04-20-2025 Telephone encounter Note Called and relayed the TE below to the pt's nurse. [facility] 04-20-2025 Miscellaneous Notes Called and relayed the TE below to the pt's nurse. Continue current doses. Future blood glucose log's requested to have 2 weeks of data. BGL downloaded in media for your review. Thanks documented in this encounter [facility] 04-19-2025 Miscellaneous Notes Continue current doses. Future blood glucose log's requested to have 2 weeks of data. BGL downloaded in media for your review. Thanks documented in this encounter [facility] 04-19-2025 Telephone encounter Note Continue current doses. Future blood glucose log's requested to have 2 weeks of data. [facility] 04-17-2025 Telephone encounter Note BGL downloaded in media for your review. Thanks [facility] 04-06-2025 Telephone encounter Note Images from the original note were not included. Faxed BG recommendation to [facility] at fax #: [phone]. [facility] 04-06-2025 Miscellaneous Notes Images from the original note were not included. Faxed BG recommendation to [facility] at fax #: [phone]. Good Afternoon, I reviewed blood sugars for Maria Luisa, and they are mostly stable. There are no hypoglycemic events and blood sugars are not in the 300s on this log which is fantastic. No changes recommended at this time. Thanks! Images from the original note were not included. Patient's BGL Name of caller: Jose Raul Contact phone number: [phone] Relationship to Patient: [facility] Provider: JEREMY Stephens CNP Practice: [facility] Chief Complaint/Reason for Call: Jose Raul states transportation did not arrive to [facility] patient for his 03/27/25 9:00 AM follow up today and Jose Raul rescheduled patient for 04/06/25 8:30 AM with Kaushal Schultz PA-C at the [facility] office. Please be advised. Best time of day caller can be reached: Any Patient advised that office/PCP has 24-48 business hours to return their call: Yes documented in this encounter [facility] 04-06-2025 History of Presen t illness Narrative Images from the original note were not included. [facility] [place] [address] [place] [address] Dept: [phone] Dept Loc: [phone] Visit type: Established patient Reason for Visit: Follow-up and Diabetes Mellitus Assessment and Plan 1. Type 2 diabetes mellitus with hyperglycemia, with long-term current use of insulin ([facility]) - AMB POC HEMOGLOBIN A1C - Comprehensive metabolic panel - Microalbumin / creatinine urine ratio 2. Type 2 diabetes mellitus with diabetic autonomic neuropathy, with long-term current use of insulin ([facility]) 3. Hypertension associated with type 2 diabetes mellitus ([facility]) 4. 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: [employer] [facility] visit: Inpatient [...] fingers, couple slices of pizza Meats, Salad, citizen of [place] or ranch dressing Beverages: Crystal light, Diet [...] Acquired absence of other toe(s), unspecified side ([facility]) Anxiety disorder Bipolar 1 disorder ([facility]) Blood circulation, collateral Cellulitis chronic L lower leg COVID 12/08/2021 Depression Diabetes mellitus ([facility]) Type II, on insulin Disease of blood and blood forming organ Endometrial carcinoma ([facility]) 11/25/2020 Endometrial hyperplasia Foot ulcer ([facility]) Hx of blood clots RLE prior to amputation Hyperlipidemia Hypertension Lymphedema MDRO (multiple drug resistant organisms) resistance hx CRE and MRSA in 2018, RLE Morbidly obese ([facility]) Muscle weakness Osteomyelitis ([facility]) Osteomyelitis ([facility]) 2019 RLE Other lack of coordination Other specified soft tissue disorders Other symbolic dysfunctions Schizophrenia ([facility]) Sleep apnea no CPAP Venous insufficiency Social [...] ENDOSCOPY N/A 06/29/2023 Dr Sergio Sibley at [facility]; no specimens WISDOM TOOTH EXTRACTION Family History [...] found for: [id number] No results found for: [id number] Imaging/Testing: Portions of the information within this encounter were entered using an electronic dictation system. Best attempts were made to edit/proofread the information prior to note completion. Despite the review of information, some errors may remain. If there are questions related to the information contained within the note please contact the signing physician directly. documented in this encounter [facility] 04-05-2025 Telephone encounter Note Good Afternoon, I reviewed blood sugars for Maria Luisa, and they are mostly stable. There are no hypoglycemic events and blood sugars are not in the 300s on this log which is fantastic. No changes recommended at this time. Thanks! [facility] 04-05-2025 Telephone encounter Note Images from the original note were not included. Patient's BGL [facility] 03-27-2025 Telephone encounter Note Name of caller: Jose Raul Contact phone number: [phone] Relationship to Patient: [facility] Provider: JEREMY Stephens CNP Practice: [facility]ology Chief Complaint/Reason for Call: Jose Raul states transportation did not arrive to [facility] patient for his 03/27/25 9:00 AM follow up today and Jose Raul rescheduled patient for 04/06/25 8:30 AM with Kaushal Schultz PA-C at the [place] office. Please be advised. Best time of day caller can be reached: Any Patient advised that office/PCP has 24-48 business hours to return their call: Yes [facility] 02-27-2025 Telephone encounter Note Images from the original note were not included. Patient's BGL [facility] 02-27-2025 Miscellaneous Notes Images from the original note were not included. Patient's BGL documented in this encounter [facility] 02-16-2025 Telephone encounter Note [facility] at fax #: [phone]. [facility] 02-16-2025 Miscellaneous Notes Faxed letter to [facility] at fax #: [phone]. I reviewed the blood glucose log. Blood [...] included. Patient's BGL documented in this encounter [facility] 02-15-2025 Telephone encounter Note I reviewed the blood glucose log. Blood sugars remain variable. Please increase U500 insulin to 150 before breakfast, 130 before lunch and 150 before dinner. If blood sugar before meal is 90-120, give half dose If less than 90 and patient eating little carbohydrates for meal, hold u500 dose. Thank you, JEREMY Schuster CNP [facility] 02-15-2025 Telephone encounter Note Images from the original note were not included. Patient's BGL [facility] 02-13-2025 Telephone encounter Note Called [facility] at [place] to offer cancel the [facility] visit per provider. Visit canceled. [facility] 02-13-2025 Miscellaneous Notes Called [facility] to offer cancel the [facility] visit per provider. Visit canceled. Lung nodule [...] with [facility] or ambulance cot. Please advise. [facility] Radiology called stating that CT chest wo IV contrast order will before its completion. Requested new order to be placed. Please advise. documented in this encounter [facility] 02-12-2025 Note Lung nodule stable-d oes not need f/up CT reviewed-from Oct. He declined sleep med referral. I do not have to see him. I would recommend that they cancel f/up. Nodule unchanged for 2 yrs.. [facility] 02-12-2025 Telephone encounter Note Lung nodule stable-does not need f/up CT reviewed-from Oct. He declined sleep med referral. I do not have to see him. I would recommend that they cancel f/up. Nodule unchanged for 2 yrs.. [facility] Work Phone: 02-12-2025 Miscellaneous Notes Lung nodule [...] with [facility] or ambulance cot. Please advise. [facility] Radiology called stating that CT chest wo IV contrast order will before its completion. Requested new order to be placed. Please advise. documented in this encounter [facility] 02-12-2025 Telephone encounter Note Nurse from [facility] called to schedule Annual follow up. Follow up scheduled for 03/02/2025. Patient is non weight bearing and uses a [facility]. Further question is whether they bring with [facility] or ambulance cot. Please advise. [facility] 02-09-2025 Telephone encounter Note Faxed new orders to [facility] at fax #: [phone]. [facility] 02-09-2025 Miscellaneous Notes Faxed new orders to [facility] at fax #: [phone]. I reviewed blood sugars. Blood sugars are [...] included. Patient's BGL documented in this encounter [facility] 02-08-2025 Telephone encounter Note I reviewed blood [...] 102 Bedtime Blood sugars: 302, 108, [address] [facility] 02-08-2025 Miscellaneous Notes I reviewed blood sugars. [...] included. Patient's BGL documented in this encounter [facility] 02-08-2025 Telephone encounter Note [facility] Radiology called stating that CT chest wo IV contrast order will before its completion. Requested new order to be placed. Please advise. [facility] 02-08-2025 Miscellaneous Notes [facility] Radiology called stating that CT chest wo IV contrast order will before its completion. Requested new order to be placed. Please advise. documented in this encounter [facility] 02-07-2025 Telephone encounter Note Images from the original note were not included. Patient's BGL [facility] 02-01-2025 History of Presen t illness Narrative Vascular Surgery Outpatient Consultation Chief Complaint Patient presents with New Patient Dr. Guzman/ venous insufficiency, arterial occlusion? Reason for Consult: PVD Requesting Physician: Dr. Guzman HISTORY OF PRESENTILLNESS: The patient is a 59 y.o. adult with significant medical hx listed below, who is here for evaluation of PAD. Pt is from [facility] [place]. He is in a wheelchair. He states [...] Acquired absence of other toe(s), unspecified side ([facility]) Anxiety disorder Bipolar 1 disorder ([facility]) Blood circulation, collateral Cellulitis chronic L lower leg COVID 12/08/2021 Depression Diabetes mellitus ([facility]) Type II, on insulin Disease of blood and blood forming organ Endometrial carcinoma ([facility]) 11/25/2020 Endometrial hyperplasia Foot ulcer ([facility]) Hx of blood clots RLE prior to amputation Hyperlipidemia Hypertension Lymphedema MDRO (multiple drug resistant organisms) resistance hx CRE and MRSA in 2018, RLE Morbidly obese ([facility]) Muscle weakness Osteomyelitis ([facility]) Osteomyelitis ([facility]) 2019 RLE Other lack of coordination Other specified soft tissue disorders Other symbolic dysfunctions Schizophrenia ([facility]) Sleep apnea no CPAP Venous insufficiency Past Surgical History: Past Surgical History: Procedure Laterality Date ABCESS DRAINAGE Right 09/09/2018 FOOT; [facility] COLONOSCOPY 09/19/[address] Hyde DILATION AND CURETTAGE OF UTERUS 05/18/2019 HYSTEROSCOPY 12/23/2021 LEG AMPUTATION THROUGH KNEE Right 06/16/2019 UPPER GASTROINTESTINAL ENDOSCOPY N/A 06/29/2023 Dr Sergio Sibley at [facility]; no specimens WISDOM TOOTH EXTRACTION Current Medications: [...] meal, hold u500 dose. 01/01/25 Margo Guerrero, SECURITY CONTROLS ASSESSOR - CLINICAL TRIALS SPECIALIST lactulose (Kristalose) 20 g packet Take 20 [...] file Stress: No Stress Concern Present (10/19/2024) [employer] [place] [employer] - Occupational Stress Questionnaire Feeling of Stress : Only a little Social Connections: Unknown (10/19/2024) Social Connection and Isolation Panel [NHANES] Frequency of Communication with Friends and Family: Three times a week Frequency of Social Gatherings with Friends and Family: Once a week Attends [employer] Services: 1 to 4 times per year [...] This Visit Circulatory PAD (peripheral artery disease) ([facility]) - Primary Relevant Orders Vascular US lower extremity arterial PVR Other Visit Diagnoses Hx of AKA (above knee amputation), right ([facility]) Lymphedema of left leg Morbid obesity ([facility]) Pt with hx of right AKA and [...] results of PVR documented in this encounter [facility] 01-31-2025 Telephone encounter Note Called [facility] rica/jesus Moise released message as written, she stated that she understood. [facility] 01-31-2025 Miscellaneous Notes Called [facility] rica/jesus Moise released message as written, she stated [...] included. Patient's BGL documented in this encounter [facility] 01-30-2025 Telephone encounter Note Blood sugars are extremely variable. Breakfast blood sugars can vary between 101-304 Lunch blood sugars between 135-308 Dinner variations between 93-336 Insulin doses can not be modified for riskof hypoglyamcia or hyperglycemia. Limit oral intake to 60 grams of carbs per meal and 15 grams of carbs/snack. [facility] 01-29-2025 Telephone encounter Note Images from the original note were not included. Patient's BGL [facility] 01-19-2025 Telephone encounter Note Faxed orders to [facility] at fax #: [phone]. [facility] 01-19-2025 Miscellaneous Notes Faxed orders to [facility] at fax #: [phone]. I reviewed blood sugar logs. Blood sugars [...] included. Patients BGL documented in this encounter [facility] 01-17-2025 Telephone encounter Note I reviewed blood [...] in addition to the current medication doses. [facility] 01-15-2025 Telephone encounter Note Images from the original note were not included. Patients BGL [facility] 01-02-2025 Telephone encounter Note Labs Noted [facility] 01-02-2025 Miscellaneous Notes Labs Noted Images from the original note were not included. Requested BGLs and a recent CMP was received , please advise. documented in this encounter [facility] 01-01-2025 Telephone encounter Note Images from the original note were not included. Requested BGLs and a recent CMP was received , please advise. [facility] 01-01-2025 History of Presen t illness Narrative Images from the original note were not included. [facility] - [place] [address] [address] [facility] [address] [facility] [address] Dept: [phone] Dept Loc: [phone] Visit type: Established patient Reason for Visit: Hospital Follow-up, Diabetes Mellitus, and Hyperglycemia Assessment and Plan 1. Type 2 diabetes mellitus with hyperglycemia, with long-term current use of insulin ([facility]) - Microalbumin / creatinine urine ratio 2. Type 2 diabetes mellitus with diabetic autonomic neuropathy, with long-term current use of insulin ([facility]) 3. S/P AKA (above knee amputation) unilateral, right ([facility]) 4. Mixed hyperlipidemia - Lipid panel 5. Microalbuminuria 6. Essential hypertension 7. Class 3 severe obesity due to excess calories with serious comorbidity and body mass index (BMI) of 45.0 to 49.9 in adult ([facility]) A1c 6.9 as of 10/19/2024. 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[employer] [facility] visit: Inpatient [...] fingers, couple slices of pizza Meats, Salad, citizen of [place] or ranch dressing Beverages: Crystal light, Diet [...] Acquired absence of other toe(s), unspecified side ([facility]) Anxiety disorder Bipolar 1 disorder ([facility]) Blood circulation, collateral Cellulitis chronic L lower leg COVID 12/08/2021 Depression Diabetes mellitus ([facility]) Type II, on insulin Disease of blood and blood forming organ Endometrial carcinoma ([facility]) 11/25/2020 Endometrial hyperplasia Foot ulcer ([facility]) Hx of blood clots RLE prior to amputation Hyperlipidemia Hypertension Lymphedema MDRO (multiple drug resistant organisms) resistance hx CRE and MRSA in 2018, RLE Morbidly obese ([facility]) Muscle weakness Osteomyelitis ([facility]) Osteomyelitis ([facility]) 2019 RLE Other lack of coordination Other specified soft tissue disorders Other symbolic dysfunctions Schizophrenia ([facility]) Sleep apnea no CPAP Venous insufficiency Social History Tobacco Use Smoking status: Never Smokeless tobacco: Never Substance Use Topics Alcohol use: No Past Surgical History: Procedure Laterality Date ABCESS DRAINAGE Right 09/09/2018 FOOT; [facility] COLONOSCOPY 09/19/[address] Hyde DILATION AND CURETTAGE OF UTERUS 05/18/2019 HYSTEROSCOPY 12/23/2021 LEG AMPUTATION THROUGH KNEE Right 06/16/2019 UPPER GASTROINTESTINAL ENDOSCOPY N/A 06/29/2023 Dr Sergio Sibley at [facility]; no specimens WISDOM TOOTH EXTRACTION Family History [...] found for: CHOLHDLRATIO No results found for: [id number] Imaging/Testing: Portions of the information within this encounter were entered using an electronic dictation system. Best attempts were made to edit/proofread the information prior to note completion. Despite the review of information, some errors may remain. If there are questions related to the information contained within the note please contact the signing physician directly. documented in this encounter [facility] 01-01-2025 Instructions JEREMY Vincent CNP - 01/01/2025 11:00 AM EST Please send Ophthalmology Note once completed this year. Please note if any insulin doses are held on blood log. documented in this encounter [facility] 12-29-2024 Telephone encounter Note Called VAN mckeon/jesus Ocasio released message as written, no insulin has been held. [facility] 12-29-2024 Miscellaneous Notes Called VAN s/w Ninfa [...] Name of caller: Ninfa Contact phone number: [phone] Relationship to Patient: Pump Back [place] Provider: KRANTHI Guerrero [place] [facility] [place] Chief Complaint/Reason for Call: Ninfa states [...] included. Faxed orders from ana maria to [facility] I have reviewed the pt's [...] included. Patients BGL documented in this encounter [facility] 12-27-2024 Telephone encounter Note Roberto Ninfa, I received the BGL Log from [...] and management of the insulin doses. Thanks! [facility] 12-27-2024 Miscellaneous Notes Hi Ninfa, I received [...] Name of caller: Ninfa Contact phone number: [phone] Relationship to Patient: Preethi Frias Provider: KRANTHI Guerrero Practice[place] [facility] [place] Chief Complaint/Reason for Call: Ninfa states [...] included. Faxed orders from ana maria to [facility] I have reviewed the pt's [...] included. Patients BGL documented in this encounter [facility] 12-22-2024 Telephone encounter Note Please advise. [facility] 12-22-2024 Miscellaneous Notes Please advise. Name of caller: Ninfa Contact phone number: [phone] Relationship to Patient: [facility] Provider: KRANTHI Guerrero Practice: [facility] [place] Chief Complaint/Reason for Call: Ninfa states [...] note were not included. Faxed orders from [facility] to [facility] I have reviewed the pt's [...] included. Patients BGL documented in this encounter [facility] 12-22-2024 Telephone encounter Note Name of caller: Ninfa Contact phone number: [phone] Relationship to Patient: [facility] Provider: KRANTHI Guerrero Practice: [facility] [place] Chief Complaint/Reason for Call: Ninfa states she would like to know at what point should they hold the insulin regular (HumuLIN R) 500 UNIT/ML CONCENTRATED injection for the patient. Please review. Best time of day caller can be reached: any Patient advised that office/PCP has 24-48 business hours to return their call: Yes [facility] 12-22-2024 Telephone encounter Note Images from the original note were not included. Faxed orders from [facility] to [facility] 12-21-2024 History of Presen t illness Narrative Patient was verified by name and . Images from the original note were not included. [facility] [address] [address] Dept: [phone] Dept Loc: [phone] Visit type: New Reason for Visit: New [...] without cholecystitis without obstruction BMI 50.0-59.9, adult ([facility]) 59 year old male referred by Rosy Ibarra CNP, re: calculus of gallbladder without cholecystitis without obstruction. Patient hospitalized 10/18/2024-10/23/2024 @ [facility] 2/2 acute cholecystitis. Blood sugars uncontrolled and [...] first colonoscopy --referral previously placed to [facility] Advised patient to call office with [...] cholecystitis without obstruction. He presents from facility, [facility] (residing since 2018). He has pmh DM2, morbid obesity, bipolar, schizophrenia, JOHN, lymphedema, HTN, diabetic neuropathy, and hx osteomyelitis of RLE with right AKA. Patient was hospitalized 10/18/2024-10/23/2024 at [facility] related to acute cholecystitis. Due to medical [...] surgical intervention. He was referred to [facility]. Presently denies nausea and vomiting. Having [...] Priority: Medium Sepsis without acute organ dysfunction ([facility]) 10/07/2023 Priority: Medium Abdominal pain 08/19/2023 Priority: Medium Upper abdominal pain 08/17/2023 Priority: Medium Chest pain 06/28/2023 Priority: Medium Chest pain, unspecified type 06/28/2023 Priority: Medium Hypertension 11/25/2020 Priority: Medium Hyperlipidemia 10/07/2021 Thickened endometrium 11/26/2020 Complex endometrial hyperplasia with atypia 11/26/2020 Diabetic gastroparesis associated with type 2 diabetes mellitus ([facility]) ([facility]) 11/26/2020 Endometrial carcinoma ([facility]) 11/25/2020 Endometrial hyperplasia 11/25/2020 Diabetic hyperosmolar non-ketotic state ([facility]) ([facility]) 11/25/2020 Chronic acquired lymphedema 11/25/2020 Chronic osteomyelitis ([facility]) ([facility]) 11/25/2020 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 ([facility]) 11/25/2020 Type 2 diabetes mellitus with hyperglycemia, with long-term current use of insulin ([facility]) 11/25/2020 Hyperglycemia 11/25/2020 S/P AKA (above knee amputation) unilateral, right ([facility]) 11/25/2020 Ileus ([facility]) ([facility]) 09/27/2020 Esophagitis 09/22/2020 Nausea and vomiting 09/22/2020 Diabetic foot infection ([facility]) 06/14/2019 Post-menopausal bleeding 05/16/2019 Cellulitis 01/17/2019 Class 3 severe obesity due to excess calories with serious comorbidity and body mass index (BMI) of 60.0 to 69.9 in adult ([facility]) 01/13/2019 Left leg cellulitis 01/11/2019 Cellulitis and [...] negative sonographic Caldwell's sign reported by the biomedical engineering technologist. Pancreas: Largely obscured by bowel gas. [...] Physician MD MUNIZ REYNALDO C. Accession Number [id number] CPT4 Codes 44796 () Reason For Exam nausea, diabetees Report [...] 4:03 PM 12/21/24 documented in this encounter [facility] 12-21-2024 Instructions JEREMY Kinsey CNP - 12/21/2024 8:30 AM EST --Please call office with any questions or concerns! [phone] --Schedule EGD (upper endoscopy) and colonoscopy for [...] be sent through Care Everywhere.Upper GI Endoscopy (Israeli)Colonoscopy (Israeli)documented in this encounter [facility] 12-21-2024 Telephone encounter Note I have reviewed [...] will assist with stabilizing blood sugars. Thanks! [facility] 12-20-2024 Telephone encounter Note Images from the original note were not included. Patients BGL [facility] 12-07-2024 History of Presen t illness Narrative Images from the original note were not included. Lilo Rizo MD General Surgery Outpatient Post-Operative/Follow Up Office Note Patient ID: Will Jacinto [id number] 59 y.o. 1965 Interval History 12/07/24: Patient [...] ENDOSCOPY N/A 06/29/2023 Dr Sergio Sibley at [facility]; no specimens WISDOM TOOTH EXTRACTION Medications Prior [...] 3 times daily. 11/28/24 Yes Margo Guerrero SECURITY CONTROLS ASSESSOR - CLINICAL TRIALS SPECIALIST lisinopril 40 MG tablet Take 0.5 tablets [...] 12/01/24 12/08/24 Yes Rosy Ibarra APRN - CLINICAL TRIALS SPECIALIST pantoprazole (ProtoNix) 40 MG EC tablet Take [...] No Stress: No Stress Concern Present (10/19/2024) [employer] - Occupational Stress Questionnaire Feeling of Stress : Only a little Social Connections: Unknown (10/19/2024) Social Connection and Isolation Panel [NHANES] Frequency of Communication with Friends and Family: Three times a week Frequency of Social Gatherings with Friends and Family: Once a week Attends Roman Catholic Services: 1 to 4 times per year [...] Behavior normal. Orders Placed This Encounter Procedures [facility] Program ASSESSMENT AND PLAN: [...] education and counseling. documented in this encounter [facility] 12-06-2024 Telephone encounter Note LVM with [facility](primary number in account) for flight crew scheduler to call back to schedule follow up appointment with Herber. [facility] 12-06-2024 Miscellaneous Notes LVM with [facility](primary number in account) for flight crew scheduler to call back to schedule follow [...] sooner with provider. documented in this encounter [facility] 12-01-[address] [facility] 12-01-2024 Telephone encounter Note Images from the original note were not included. Faxed new insulin order to [facility] at fax #: [phone]. [facility] 12-01-2024 Miscellaneous Notes Images from the original note were not included. Faxed new insulin order to [facility] at fax #: [phone]. I have reviewed the pt's glucose log. [...] included. Patient's BGL documented in this encounter [facility] 12-01-2024 Note IMPRESSION: Sinus rhythm Abnormal R-wave progression, late transition Left ventricular hypertrophy Borderline prolonged QT interval Electronically Signed On 12-01-2024 00:32:34 EST by Aaron Burgos [facility] 11-30-2024 Note [facility] 11-28-2024 Telephone encounter Note I have reviewed the pt's glucose log. Based on interpretation of the FSBS data I recommend the following changes to the pt's antihyperglycemic regimen: Please increase Humulin u500 to 140 units three times daily before meals. Med rec updated: Yes [facility] 11-28-2024 Miscellaneous Notes I have reviewed the [...] included. Patient's BGL documented in this encounter [facility] 11-28-2024 Telephone encounter Note Images from the original note were not included. Patients BGL [facility] 11-22-2024 Telephone encounter Note I have reviewed [...] until we ensure blood sugars remain stable. [facility] 11-22-2024 Telephone encounter Note Unable to reach Suri at [facility] to reschedule appt with Makayla Guerrero on 11/27/2024. Called [facility] again at [phone] and spoke to Quiana again. Rescheduled pt to 01/01/25 and per Quiana [facility] will call if there is a problem with this date/time. [facility] 11-22-2024 Miscellaneous Notes Unable to reach Suri at [facility] to reschedule appt with Makayla Guerrero on 11/27/2024. Called [facility] again at [phone] and spoke to Quiana again. Rescheduled pt to 01/01/25 and per Quiana [facility] will call if there is a problem with this date/time. documented in this encounter [facility] 11-21-2024 Telephone encounter Note Called the [facility] and spoke with the pts nurse nabil, [...] new logs in two weeks, she understood. [facility] 11-21-2024 Miscellaneous Notes Called the [facility] and spoke with the pts nurse nabil, [...] included. Patient's BGL documented in this encounter [facility] 11-21-2024 Telephone encounter Note Images from the original note were not included. Patient's BGL [facility] 11-20-2024 Telephone encounter Note Addendum completed. Sending message to provider as FYI, please indicate if/when patient needs fu with provider to review. Will forward to staff to schedule if indicated. Thank you. [facility] 11-20-2024 Miscellaneous Notes Addendum completed. Sending message [...] sooner with provider. documented in this encounter [facility] 11-19-2024 Telephone encounter Note I have reviewed the pt's glucose log. Based on interpretation of the FSBS data I recommend the following changes to the pt's antihyperglycemic regimen: Blood sugars are variable with 5 doses recently held. Can we clarify if patient has been sick or had decreased appetite that caused recent change in insulin needs? [facility] Work Phone: 11-19-2024 Miscellaneous Notes I have [...] included. Patient's BGL documented in this encounter [facility] 11-15-2024 Telephone encounter Note Images from the original note were not included. Patient's BGL [facility] 11-14-2024 Telephone encounter Note Noted. Request emailed to radiology team. [facility] 11-14-2024 Miscellaneous Notes Noted. Request emailed to [...] sooner with provider. documented in this encounter [facility] 11-14-2024 History of Presen t illness Narrative Images from the original note were not included. Asuncion Valencia APRN-[facility] General Surgery Outpatient Post-Operative/Follow Up Office Note Patient ID: Will Jacinto [id number] 59 y.o. 1965 This is a 59 [...] ENDOSCOPY N/A 06/29/2023 Dr Sergio Sibley at [facility]; no specimens WISDOM TOOTH EXTRACTION Medications Prior [...] No Stress: No Stress Concern Present (10/19/2024) [employer] [employer] - Occupational Stress Questionnaire Feeling of Stress : Only a little Social Connections: Unknown (10/19/2024) Social Connection and Isolation Panel [NHANES] Frequency of Communication with Friends and Family: Three times a week Frequency of Social Gatherings with Friends and Family: Once a week Attends Roman [employer] Services: 1 to 4 times per year [...] 11/14/2024 12:47 PM documented in this encounter [facility] 11-13-2024 Telephone encounter Note Patient appeared on [...] and/or have scheduled follow-up sooner with provider. [facility] 11-12-2024 Hospital Discharg e instructions JEREMY Hilliard CNP - 11/12/2024 11:44 PM EST The drain coming out after 3+ weeks is okay at this time CT and labs are unremarkable patient can follow-up in the surgery office as an outpatient. The following attachments cannot be sent through Care Everywhere.Gallstones Discharge Instructions (Israeli)documented in this encounter [facility] 11-12-2024 Emergency department Note Emergency Department Encounter [facility] ED Patient: Will Jacinto : 1965 Date [...] dictating provider for clarification.) Virgil Mederos MD [facility] Virgil Mederos MD 11/12/242219 documented in this encounter [facility] 11-12-2024 Physician Emergency department Note Emergency Department Encounter [facility] ED Patient: Will Jacinto : 1965 Date [...] of this encounter. In brief, Maria Luisa Jcainto is a 59 y.o. that presents to [...] for clarification.) Virgil Mederos MD Acute Care [facility] Virgil Mederos MD 11/12/242219 [email or web address] Phone: 11-10-2024 History of Presen t illness Narrative Images from the original note were not included. Asuncion Valencia APRN-[facility] General Surgery Outpatient Post-Operative/Follow Up Office Note Patient ID: Will Jacinto [id number] 59 y.o. 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, RLE Morbidly obese ([facility]) Muscle weakness Osteomyelitis ([facility]) Osteomyelitis (HCC) 2018 RLE Other lack of [...] ENDOSCOPY N/A 06/29/2023 Dr Sergio Sibley at [facility]; no specimens WISDOM TOOTH EXTRACTION Medications Prior [...] No Stress: No Stress Concern Present (10/19/2024) [employer] - Occupational Stress Questionnaire Feeling of Stress : Only a little Social Connections: Unknown (10/19/2024) Social Connection and Isolation Panel [NHANES] Frequency of Communication with Friends and Family: Three times a week Frequency of Social Gatherings with Friends and Family: Once a week Attends Roman [employer] Services: 1 to 4 times per year [...] 11/10/2024 11:32 AM documented in this encounter [facility] 10-30-2024 Telephone encounter Note Released message to nurse [facility] 10-30-2024 Miscellaneous Notes Released message to nurse BG log reviewed. No changes to current meds. Send log as needed; otherwise, has appt 11/27 with Ana Maria. Please remind SNF to send BGL and MAR to visit. Thank you! Images from the original note were not included. Patient's BGL documented in this encounter [facility] 10-30-2024 Telephone encounter Note BG log reviewed. No changes to current meds. Send log as needed; otherwise, has appt 11/27 with Ana Maria. Please remind SNF to send BGL and MAR to visit. Thank you! [facility] Work Phone: 10-30-2024 Telephone encounter Note Images from the original note were not included. Patient's BGL [facility] 10-24-2024 Telephone encounter Note Shayy called back we scheduled an appointment with Ana Maria on 11/27/24 and another one on 03/27/25 with Thalia. [facility] 10-24-2024 Miscellaneous Notes Shayy called back we scheduled an appointment with Ana Maria on 11/27/24 and another one on 03/27/25 with Thalia. Called Pump Backgómez Frias at [phone] and spoke to Quiana who states that I need to to speak to Suri, and she is currently out of the office. Per Quiana, she will have [facility] call back to schedule. Direct phone number to the [place] office was given. Needs to be seen for follow up with any provider, will need [facility] to arrange transportation so that patient can be seen in office ans no longer available to manage over the phone documented in this encounter [facility] 10-24-2024 Hospital Discharg e instructions Baldev Ortiz MD - 10/24/2024 12:53 PM EST Please return to the Emergency Room if you have dizziness, shortness of breath, falls, new or worsening symptoms. documented in this encounter [facility] 10-24-2024 Emergency department Note Pt placed on bedpan, urine sample collected and sent to lab. [facility] 10-24-2024 Emergency department Note Pt placed on [...] Pt is DNR-CCA. documented in this encounter [facility] 10-24-2024 Emergency department Note Pt provided with sandwich and pop, ok per Dr Mixon [facility] 10-24-2024 Emergency department Note Per pt he is not having any blood in his urine, his gallbladder drain is newly placed (3 days ago), pt states the drainage has been the same in color since it was placed, denies pain, denies drainage to site. Pt states has no complaints other than concern for low BG and feeling cold. [facility] 10-24-2024 Emergency department Note Pt arrives by [facility] for blood in urine and change in mental status. Pt has chronic lewis and has blood present. BP elevated, BG 154 (low per SNF because pt is normally in 300 range). Pt is DNR-CCA. [facility] 10-24-2024 Telephone encounter Note Called [facility] Back Altagracia at [phone] and spoke to Quiana who states that I need to to speak to Suri, and she is currently out of the office. Per Quiana, she will have [facility] call back to schedule. Direct phone number to the [place] office was given. [facility] 10-23-2024 Nurse Note Report called to Nabil GUILLORY at [facility]. [facility] 10-23-2024 Nurse Note Report called to Nabil GUILLORY at [facility]. Report called to [address] [place] [address] for transfer. Notified Lisa Lopes APRN and Dr. Thomas regarding patients BS. New orders placed. documented in this encounter [facility] 10-23-2024 Note Formatting of this n ote might be different from the original. Discharge med list transmitted to return back to [facility] via [facility] per [facility] request. [facility] 10-23-2024 Note Formatting of this n ote might be different from the original. Discharge med list transmitted to return back to [facility] via [facility] per [facility] request. [facility] 10-23-2024 Miscellaneous Notes Discharge med list transmitted to return back to [facility] via [facility] per [facility] request. Asked by [facility] to set transport to [facility]. The BLS Vehicle you requested for Will Batista in unit/room [facility] [id number] on 10/23/2024 is scheduled to arrive at 2:30pm EST! [facility] is handling this ride and you can contact them at . Pt, nurse, unit sec, TCC, and facility informed of time. DC orders in and signed by Dr. Thomas. DISTRIBUTION SALES MANAGER set up transport. [facility] tasked in [facility] to send DC info [facility] . DC back to F in [...] Maintained or Improved Outcome: Progressing Did update [facility] that attending would like patient to return [...] stool positive. Discharge plan is back to [facility] when medically ready. He is a bedhold and will not need auth to return unless he goes back as skilled. consumer marketing manager to follow and assist as needed. Length of Stay (Days): 2 GMLOS: 3.5 Problem: Potential for Compromised Skin Integrity Goal: Skin Integrity is Maintained or Improved Outcome: Progressing Problem: Urinary Incontinence Goal: Perineal skin integrity is maintained or improved Outcome: Progressing Sent updated notes to return back to [facility] per [facility] request. Await review and response regarding ability to accept. TCC notified. Referral placed to return back to [facility] via [facility] per [facility] request. Await review and response regarding ability to accept. TCC notified. Care Managment Initial Assessment Date: 10/19/2024 Patient Name: Will Jacinto : 1965 Patient Information Source of Information: Patient Cognition/Language: WFL - Within Functional Limits Permission given to speak with patient patient access representative/caregiver as indicated: Confirmation of Payer with patient/family: Payer Name: [place]: Confirmation of Primary Care Physician: Primary Caregiver: Other (Comment) (Facility staff) If assistance needed, confirmed caregiver ready, willing and able to care for patient at discharge: Confirmed with: Living Arrangements Current Residence: Number of Floors Number of Entry Steps: Bed/Bath Levels: Facility: [facility] Facility Name: [facility] Plan to Return: Yes Lives with: Other [...] Plan Patient expects to be discharged to: [facility] Discharge Planning Actions: Continue to follow Patient's Choice Rights and [employer] and Collaborative Relationships Disclosed as Indicated for Post-Acute Care: Interdisciplinary Team Engagement: Social Work Referral for: Additional Information: Pt admitted to for gall bladder inflammation. Met with pt at bedside, introduced self and explained role. Pt has insurance with RX coverage, active with PCP. He is a LTC resident at [facility] and would like to return to facility. Pt requires assistance with all ADLS. Requires a deedee for transfers. Tasked [employer] SUPERVISOR to send return referral to [facility]. Gen surg and ID following. Endocrinology consulted. Receiving IV ATB and fluids. NPO at this time. Pt to have biliary drain placed today. Fecal occult stool positive. Discharge plan will be to return to [facility] once medically ready. consumer marketing manager to follow and assist as needed. [...] improved Outcome: Progressing documented in this encounter [facility] 10-23-2024 Note Formatting of this n ote might be different from the original. Asked by [facility] to set transport to [facility]. The [employer] Vehicle you requested for Will M. in unit/room [place] [address] on 10/23/2024 is scheduled to arrive at 2:30pm EST! [facility] is handling this ride and you can contact them at . Pt, nurse, unit sec, TCC, and facility informed of time. [facility] 10-23-2024 Note Formatting of this n ote might be different from the original. Asked by [facility] to set transport to [facility]. The [employer] Vehicle you requested for Will M. in unit/room [place] [address] on 10/23/2024 is scheduled to arrive at 2:30pm EST! [facility] is handling this ride and you can contact them at . Pt, nurse, unit sec, TCC, and facility informed of time. [facility] 10-23-2024 History of Presen t illness Narrative Patient discharged before I was able to round on patient. Patient admitted to [facility] with acute cholecystitis and treated medically. Patient uses U500 130 units tidac and Lantus 47 units bid at home. Insulin doses are reduced due to hospitalization. Blood sugars reviewed and remain elevated. Recommendations: Discharge patient on home doses of: u500 130 units tidac, Lantus 47 units bid Images from the original note were not included. [facility] - Infectious Diseases Attending Progress [...] and Affect: Mood normal. Labs: Recent Labs 10/21/2413610/22/244 10/23/24 0127 NA 135* 139 137 K 3.3* 3.3* 3.4* CL 100 104 101 CO2 23 24 29 BUN 48* 35* 21 CREATININE 1.35 1.05 0.84 GLUCOSE 112* 148* 214* CALCIUM 8.8 8.7 8.7 PROT 6.6 6.4 6.1* BILITOT 0.3 0.3 0.3 ALKPHOS 135 127 115 AST 20 19 18 ALT 42 32 27 Recent Labs 10/21/2413610/22/24 0054 10/23/24 0127 WBC 11.9* 9.7 7.5 HGB 10.2* 9.7* 9.5* HCT 31.6 30.0 29.9 PLT 396 419 407 LYMPHOPCT 15.3 15.9 24.6 MONOPCT 6.8 8.2 10.6 BASOPCT 0.6 0.5 0.7 NEUTROABS 8.9* 7.1 4.5 Crp 261.6 Micro: No results for input(s): "COVID19" in the last 72 hours. 10/19/2024 1508 10/19/2024 1511 Aerobic and Anaerobic Culture with Stain [[id number]] Bile In process Component Value No component results 10/19/2024 1508 10/19/2024 2159 Culture, Aerobic Bacteria with Gram Stain [[id number]] Bile Preliminary result Component Value Culture Culture in progress P Gram Stain Result Few Polymorphonuclear leukocytes per low power field P No organisms seen P 10/19/2024 1508 10/19/2024 1511 Anaerobic culture [[id number]] Bile In process Component Value No component results 10/19/2024 1352 10/20/2024 1147 Culture, Aerobic Bacteria with Gram Stain [[id number]] Bile from Gallbladder Preliminary result Component Value Culture No growth at 18-24 hours P Gram Stain Result Few Polymorphonuclear leukocytes per low power field P No organisms seen P 10/19/2024 1352 10/19/2024 1415 Aerobic and Anaerobic Culture with Stain [[id number]] Bile from Gallbladder In process Component Value No component results 10/19/2024 1352 10/19/2024 1415 Anaerobic culture [[id number]] Bile from Gallbladder In process Component Value No component results 10/19/2024 0155 10/19/2024 0207 Occult blood, stool [[id number]] (Abnormal) Stool from Per Rectum Final result Component Value Fecal occult blood Positive Abnormal 10/18/2024 2343 10/20/2024 0735 Urine culture [[id number]] Urine, Clean Catch Final result Component Value Urine Culture Insignificant growth based on current clinical guidelines Lines: PIV site ok Radiography/Echo/Other: US guided percutaneous peritoneal or retroperitoneal fluid collection drainage [[id number]] Collected: 10/19/24 1421 Order Status: Completed Updated: 10/19/24 1423 Narrative: Patient Name: WILL JACINTO : 1965 [...] advanced. Subcutaneous tract was dilated. An 8 Tunisian drainage catheter advanced over the wire. The catheter was attached to a bag. A dressing was applied. Impression: Successful placement of a drainage catheter into the gallbladder using ultrasound guidance. Report Dictated on Electronically Signed By: Alfredito Baumann MD Electronically Signed Date/Time: 10/19/2024 2:22 PM EST US abdomen limited [[id number]] Collected: 10/18/242011 Order Status: Completed Updated: 10/18/242021 [...] PM EST CT abdomen pelvis w contrast [[id number]] Collected: 10/18/241904 Order Status: Completed Updated: 10/18/241913 [...] chest angiogram w and/or wo IV contrast [[id number]] Collected: 10/18/241856 Order Status: Completed Updated: 10/18/241912 [...] from the original note were not included. [facility] Progress Note Will Jacinto AGE: [...] ENDOSCOPY N/A 06/29/2023 Dr Sergio Sibley at [facility]; no specimens WISDOM TOOTH EXTRACTION FAMILY HISTORY [...] loss Fluid Accumulation: Moderate to Severe Extremities Perfume Maker Strength: Not Performed Nutrition Assessment: Pt is [...] most recently 6.9% (10/19/24). Pt resides at [facility]. It seems that pt has [...] (kg): 53 kg Total Energy Requirements (kcals/day): 5318-4463 kcals (28-32 kcals/kg) Weight Used for Protein [...] lb) (02/11/24) % Weight Change (Calculated): 15.2 Booker Body Weight (lbs) (Calculated): 130 lbs Booker Body Weight (Kg) (Calculated): 59 kg % Booker Body Weight (Calculated): 256.9 % BMI (kg/m2) (Calculated): 53.9 Weight Adjustment For: Amputation % Weight Adjustment: 10.1 - AKA Total Adjusted Percentage (Calculated): 10.1 Adjusted Booker Body Weight (lbs) (Calculated): 116.9 lbs Adjusted Booker Body Weight (kg) (Calculated): 53.14 kg Adjusted [...] Continue current diet Fernanda Chappell RD Contact: *[phone] or via Secure Chat Hospitalist Progress Note 10/22/2024 Subjective: Admit Date: 10/18/2024 PCP: Jared Guzman Room#: [id number] A BRIEF HOSPITAL COURSE: Admitted for abdominal [...] side (HCC) Anxiety disorder Bipolar 1 disorder ([facility]) Blood circulation, collateral Cellulitis chronic L lower leg COVID 12/08/2021 Depression Diabetes mellitus ([facility]) Type II, on insulin Disease of blood and blood forming organ Endometrial carcinoma ([facility]) 11/25/2020 Endometrial hyperplasia Foot ulcer ([facility]) Hx of blood clots RLE prior to amputation Hyperlipidemia Hypertension Lymphedema 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, RLE Morbidly obese ([facility]) Muscle weakness Osteomyelitis (HCC) Osteomyelitis ([facility]) 2019 RLE Other lack of coordination Other specified soft tissue disorders Other symbolic dysfunctions Schizophrenia ([facility]) Sleep apnea no CPAP Venous insufficiency LABS: CBC: Recent Labs 10/20/24 0642 10/21/247 10/22/24 0054 WBC 13.4* 11.9* 9.7 RBC 3.85 3.73 3.56 HGB 10.5* 10.2* 9.7* HCT 33.0 31.6 30.0 MCV 85.7 84.7 84.3 RDW 13.9 13.4 13.5 PLT 353 396 419 BMP: Recent Labs 10/20/24 0642 10/21/2413610/22/24 0054 NA 133* 135* 139 K 3.6 3.3* [...] Division of Hospitalist Medicine [employer] Hospitalist Progress Note 10/21/2024 Subjective: Admit Date: 10/18/2024 PCP: Jared Guzman Room#: [id number] A BRIEF HOSPITAL COURSE: Admitted for abdominal [...] course - wok on DC with case management associate - am labs, replace lytes prn - PT/OT/CM/SW - delirium precautions: increase activity - DVT prophylaxis: enoxaparin and encourage ambulation Advance Directive: DNR-CCA Anticipated Discharge Extended Emergency Contact Information Primary Emergency Contact: Jovana Quesada (POA) Relation: Niece Secondary Emergency Contact: Carola Lubin Mobile Relation: Other Álvaro Thomas MD Division of Hospitalist Medicine [facility] Images from the original note were not included. Attending Attestation [facility] - General Surgery Patient Name: Will [...] from the original note were not included. [facility] - Infectious Diseases Attending Progress Note [...] 1511 Aerobic and Anaerobic Culture with Stain [[id number]] Bile In process Component Value No component results 10/19/2024 1508 10/19/2024 2159 Culture, Aerobic Bacteria with Gram Stain [[id number]] Bile Preliminary result Component Value Culture Culture in progress P Gram Stain Result Few Polymorphonuclear leukocytes per low power field P No organisms seen P 10/19/2024 1508 10/19/2024 1511 Anaerobic culture [[id number]] Bile In process Component Value No component results 10/19/2024 1352 10/20/2024 1147 Culture, Aerobic Bacteria with Gram Stain [[id number]] Bile from Gallbladder Preliminary result Component Value Culture No growth at 18-24 hours P Gram Stain Result Few Polymorphonuclear leukocytes per low power field P No organisms seen P 10/19/2024 1352 10/19/2024 1415 Aerobic and Anaerobic Culture with Stain [[id number]] Bile from Gallbladder In process Component Value No component results 10/19/2024 1352 10/19/2024 1415 Anaerobic culture [[id number]] Bile from Gallbladder In process Component Value No component results 10/19/2024 0155 10/19/2024 0207 Occult blood, stool [[id number]] (Abnormal) Stool from Per Rectum Final result Component Value Fecal occult blood Positive Abnormal 10/18/2024 2343 10/20/2024 0735 Urine culture [[id number]] Urine, Clean Catch Final result Component Value Urine Culture Insignificant growth based on current clinical guidelines Lines: PIV site ok Radiography/Echo/Other: US guided percutaneous peritoneal or retroperitoneal fluid collection drainage [[id number]] Collected: 10/19/241420 Order Status: Completed Updated: 10/19/241422 [...] advanced. Subcutaneous tract was dilated. An 8 Tunisian drainage catheter advanced over the wire. The catheter was attached to a bag. A dressing was applied. Impression: Successful placement of a drainage catheter into the gallbladder using ultrasound guidance. Report Dictated on Electronically Signed By: Alfredito Baumann MD Electronically Signed Date/Time: 10/19/2024 2:22 PM EST US abdomen limited [[id number]] Collected: 10/18/242011 Order Status: Completed Updated: 10/18/242021 [...] PM EST CT abdomen pelvis w contrast [[id number]] Collected: 10/18/241904 Order Status: Completed Updated: 10/18/241913 [...] chest angiogram w and/or wo IV contrast [[id number]] Collected: 10/18/241856 Order Status: Completed Updated: 10/18/241912 [...] Acquired absence of other toe(s), unspecified side ([facility]) Anxiety disorder Bipolar 1 disorder ([facility]) Blood circulation, collateral Cellulitis chronic L lower leg COVID 12/08/2021 Depression Diabetes mellitus ([facility]) Type II, on insulin Disease of blood and blood forming organ Endometrial carcinoma ([facility]) 11/25/2020 Endometrial hyperplasia Foot ulcer ([facility]) Hx of blood clots RLE prior to amputation Hyperlipidemia Hypertension Lymphedema 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 Room[facility]Bed: [facility] A Admission Date: 10/18/2024 Visit Date: 10/20/2024 Reason for Endocrine Consult: IDDM on u500 Provider/Team Requesting Consult: Shawna Estrada PCP: Jared Guzman Outpt Sales And Marketing Assistant: Yes - Dr Lee- VV 10/27/2023 ASSESSMENT: [...] bid Outpt Follow Up-- Dr Lee or RESEARCH ASSOCIATE PROFESSOR as available - message sent SUBJECTIVE/HPI: CHIEF COMPLAINT: Chief Complaint Patient presents with Abdominal Pain [facility]. Pt presents with abd pain, diarrhea, chest [...] Lying Pulse: 103 101 99 100 Resp: 16 Temp: 37.2 C (98.9 F) 37.1 C [...] found for: CHOLHDLRATIO No results found for: [id number] Lab Results Component Value Date TSH 1.037 12/31/2023 Radiology reportsas per the Radiologist Radiology: POCT glucose meter Result Date: 10/19/2024 Performed by: [facility], [address] [place] [id number] CLIA ID: [id number] POCT glucose meter Result Date: 10/19/2024 Performed by: [facility], [address] [place] [id number] CLIA ID: [id number] POCT glucose meter Result Date: 10/19/2024 Performed by: [facility], [address] [place] [address] CLIA ID: [id number] ECG 12 lead Sinus rhythm Left ventricular hypertrophy Anterior Q waves, possibly due to LVH Electronically Signed On 10-18-2024 23:06:53 EST by Sunitha Borja POCT glucose meter Result Date: 10/18/2024 Performed by: [facility], [address] [place] [id number] CLIA ID: [id number] US abdomen limited Result Date: 10/18/2024 Patient [...] 10/18/2024 Patient Name: WILL JACINTO : 1965 [facility]#: [id number] Exam Date/Time: 10/18/2024 17:20 Procedure: CT CHEST [...] ENDOSCOPY N/A 06/29/2023 Dr Sergio Sibley at [facility]; no specimens WISDOM TOOTH EXTRACTION Allergy(ies): No [...] original note were not included. Attending Attestation [facility] - Surgery [facility] Physicians Surgery Patient Name: Will Jacinto [...] answered. Lilo Rizo MD General Surgery Pager #[phone] 10:55 AM 10/23/2024 GENERAL SURGERY Progress Note [...] lower leg COVID 12/08/2021 Depression Diabetes mellitus ([facility]) Type II, on insulin Disease of blood [...] MD Division of Hospitalist Medicine Acute care [facility] Images from the original note were not included. PHYSICAL THERAPY [facility] Name/MRN: Maria Luisa Jacinto ([id number]) Date: 10/19/2024 PT evaluation orders received and chart review completed. Pt is a [facility]care resident at [facility]. Per documentation this admission and on previous admissions, this patient is non-ambulatory, requires a deedee lift for transfers to a w/c at baseline and does not complete bed mobility. No acute PT needs identified. Rec return to ECF at discharge. Sandra De Guzman, PT documented in this encounter [facility] 10-23-2024 Note Formatting of this n ote might be different from the original. DC orders in and signed by Dr. Thomas. [facility] set up transport. [facility] DC back to ECF in stable condition. . [facility] 10-23-2024 Note Formatting of this n ote might be different from the original. DC orders in and signed by Dr. Thomas. [facility] set up transport. [facility] DC back to [facility]CF in stable condition. . [facility] 10-23-[address] [facility] 10-23-2024 Hospital course Narrative Discharge Summary Will [...] advanced. Subcutaneous tract was dilated. An 8 Tunisian drainage catheter advanced over the wire. The [...] Your Medications These medications were sent to [facility] [address] [place] [address] Hours: Wednesday to Wednesday 10 am to 6 pm amoxicillin-clavulanate 875-125 MG tablet DIET: Adult diet Regular; 4 carb choices (60 gm/meal); Low Fat (less than or equal to 50 gm/day); Low Fiber ACTIVITY: No restriction. COMPLEXITY OF FOLLOW UP: [x] Moderate Complexity: follow up within 7-14 calendar days ([id number]) [] Severe Complexity: follow up within 7 calendar days (67775) FOLLOW UP TESTING, PENDING RESULTS OR REFERRALS AT TRANSITIONAL CARE VISIT: [x] Yes [] No PENDING STUDIES: DISPOSITION: Skilled Facility FACILITY/HOME CARE AGENCY NAME: [facility] [address] [facility] [phone] Schedule an appointment as soon as possible for a visit in 1 month(s) Drain follow up Jared Guzman [address] [facility] [address] Follow up in 1 week(s) [facility] Gastroenterology - [place] [address] [address] [facility] [address] Follow up for positive occult [...] 10/23/2024, 11:26 AM documented in this encounter [facility] 10-23-2024 Hospital Discharg e instructions Álvaro Thomas [...] Nurse: Ezio Dunlap RN Discharging Hospital Unit/Room#: [id number]/[id number] A Discharging Unit Emergency Contact: Extended Emergency [...] ENDOSCOPY N/A 06/29/2023 Dr Sergio Sibley at [facility]; no specimens WISDOM TOOTH EXTRACTION Immunization History: [...] assistance Toileting Total assistance Feeding Total assistance Lighting Director Total assistance Med Delivery yes Wound Care [...] Status Date: Discharging to Facility/ Agency Name: [facility] Address:[address] [place] [address] Dialysis Facility (if applicable) Name: Address: Dialysis Schedule: Phone: Fax: Car Servicer/Cut Off Machine Unloader signature: ICIAN SECTION Name: Will Jacinto Prognosis: fair Condition at Discharge: stable Rehab Potential (if transferring to Rehab): fair Recommended Labs or Other Treatments After Discharge: CBC/CMP in 3 days and in 1 week Follow up with surgery as scheduled. The individual is being admitted to a nursing facility directly from an [facility] or a unit of a [facility] system that is not operated by or licensed by [facility] under section 5119.14 or 5160-3-15.1 5 The individual requires the level of services provided by a nursing facility for the condition for which he or she was treated in the hospital and, Physician Certification: I certify the above information and transfer of Will Jacinto is necessary for the continuing treatment of the diagnosis listed and that he requires group home facility for less than 30 days. Update Admission H&P: No change in H&P PHYSICIAN SIGNATURE: documented in this encounter [facility] 10-22-2024 Plan of care note Problem: Knowledge Deficit Goal: Patient/family/caregiver demonstrates understanding of disease process, treatment plan, medications, and discharge instructions Outcome: Progressing Problem: Potential for Compromised Skin Integrity Goal: Skin Integrity is Maintained or Improved Outcome: Progressing [facility] 10-22-2024 Plan of care note Problem: Knowledge Deficit Goal: Patient/family/caregiver demonstrates understanding of disease process, treatment plan, medications, and discharge instructions Outcome: Progressing Problem: Potential for Compromised Skin Integrity Goal: Skin Integrity is Maintained or Improved Outcome: Progressing [facility] 10-21-2024 Note Formatting of this n ote might be different from the original. Did update [facility] that attending would like patient to return to their facility tomorrow on po antibiotics. Will have TCC coverage for tomorrow follow for reply. Patient is senior living at the facility and does not need auth to return. [facility] 10-21-2024 Note Formatting of this n ote might be different from the original. Did update [facility] that attending would like patient to return to their facility tomorrow on po antibiotics. Will have TCC coverage for tomorrow follow for reply. Patient is senior living at the facility and does not need auth to return. [facility] 10-20-2024 Nurse Note Report called to [address] [place] [address] for transfer. [facility] 10-20-2024 Consult note Associated Order (s): IP WOUND CARE NURSE CONSULT TO EVAL [facility] Prevention CONSULT Note Will Jacinto [...] Acquired absence of other toe(s), unspecified side ([facility]) Anxiety disorder Bipolar 1 disorder ([facility]) Blood circulation, collateral Cellulitis chronic L lower leg COVID 12/08/2021 Depression Diabetes mellitus ([facility]) Type II, on insulin Disease of blood and blood forming organ Endometrial carcinoma ([facility]) 11/25/2020 Endometrial hyperplasia Foot ulcer ([facility]) Hx of blood clots RLE prior to amputation Hyperlipidemia Hypertension Lymphedema 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, RLE Morbidly obese ([facility]) Muscle weakness Osteomyelitis ([facility]) Osteomyelitis ([facility]) 2019 RLE Other lack of coordination Other specified soft tissue disorders Other symbolic dysfunctions Schizophrenia ([facility]) Sleep apnea no CPAP Venous insufficiency PAST SURGICAL HISTORY Past Surgical History: Procedure Laterality Date ABCESS DRAINAGE Right 09/09/2018 FOOT; [facility] COLONOSCOPY 09/19/[address] Hyde DILATION AND CURETTAGE OF UTERUS 05/18/2019 HYSTEROSCOPY 12/23/2021 LEG AMPUTATION THROUGH KNEE Right 06/16/2019 UPPER GASTROINTESTINAL ENDOSCOPY N/A 06/29/2023 Dr Sergio Sibley at [facility]; no specimens WISDOM TOOTH EXTRACTION FAMILY HISTORY [...] Geronimo DO at 10/23/2024 1:39 PM EST [facility] [employer] Phone: 10-20-2024 Consult note Associated Order (s): IP WOUND CARE NURSE CONSULT TO EVAL [facility] Prevention CONSULT Note Will M Corrine AGE: 58 y.o. GENDER: adult : 1965 [...] Acquired absence of other toe(s), unspecified side ([facility]) Anxiety disorder Bipolar 1 disorder ([facility]) Blood circulation, collateral Cellulitis chronic L lower leg COVID 12/08/2021 Depression Diabetes mellitus ([facility]) Type II, on insulin Disease of blood and blood forming organ Endometrial carcinoma ([facility]) 11/25/2020 Endometrial hyperplasia Foot ulcer ([facility]) Hx of blood clots RLE prior to amputation Hyperlipidemia Hypertension Lymphedema 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, RLE Morbidly obese ([facility]) Muscle weakness Osteomyelitis ([facility]) Osteomyelitis ([facility]) 2019 RLE Other lack of coordination Other specified soft tissue disorders Other symbolic dysfunctions Schizophrenia ([facility]) Sleep apnea no CPAP Venous insufficiency PAST SURGICAL HISTORY Past Surgical History: Procedure Laterality Date ABCESS DRAINAGE Right 09/09/2018 FOOT; ACH COLONOSCOPY 09/19/[address] Hyde DILATION AND CURETTAGE OF UTERUS 05/18/2019 HYSTEROSCOPY 12/23/2021 LEG AMPUTATION THROUGH KNEE Right 06/16/2019 UPPER GASTROINTESTINAL ENDOSCOPY N/A 06/29/2023 Dr Sergio Sibley at [facility]; no specimens WISDOM TOOTH EXTRACTION FAMILY HISTORY [...] Jacinto : 1965 AGE: 58 y.o. Room/Bed: B2-254/[facility]254 A Admission Date: 10/18/2024 Visit Date: 10/19/2024 Reason for Endocrine Consult: IDDM on u500 Provider/Team Requesting Consult: Shawna Estrada PCP: Jared Guzman Outpt Sales And Marketing Assistant: Yes - Dr Lee- VV 10/27/2023 ASSESSMENT: [...] bid Outpt Follow Up-- Dr lee or RESEARCH ASSOCIATE PROFESSOR as available - message sent SUBJECTIVE/HPI: CHIEF COMPLAINT: Chief Complaint Patient presents with Abdominal Pain [facility]. Pt presents with abd pain, diarrhea, chest [...] 10/19/2024 1402 Last data filed at 10/18/2024 2103 Gross per 24 hour Intake 75 ml [...] found for: CHOLHDLRATIO No results found for: [id number] Lab Results Component Value Date TSH 1.037 12/31/2023 Radiology reportsas per the Radiologist Radiology: POCT glucose meter Result Date: 10/19/2024 Performed by: Nati Bustos, [address] [facility] [address] CLIA ID: [id number] POCT glucose meter Result Date: 10/19/2024 Performed by: [facility], [address] [facility] [address] CLIA ID: [id number] POCT glucose meter Result Date: 10/19/2024 Performed by: [facility], [address] [facility] [address] CLIA ID: [id number] ECG 12 lead Sinus rhythm Left ventricular hypertrophy Anterior Q waves, possibly due to LVH Electronically Signed On 10-18-2024 23:06:53 EST by Sunitha Borja POCT glucose meter Result Date: 10/18/2024 Performed by: [facility], [address] [facility] [address] CLIA ID: [id number] US abdomen limited Result Date: 10/18/2024 Patient [...] Acquired absence of other toe(s), unspecified side ([facility]) Anxiety disorder Bipolar 1 disorder ([facility]) Blood circulation, collateral Cellulitis chronic L lower leg COVID 12/08/2021 Depression Diabetes mellitus ([facility]) Type II, on insulin Disease of blood and blood forming organ Endometrial carcinoma ([facility]) 11/25/2020 Endometrial hyperplasia Foot ulcer ([facility]) Hx of blood clots RLE prior to amputation Hyperlipidemia Hypertension Lymphedema MDRO (multiple drug resistant organisms) resistance hx CRE and MRSA in 2018, RLE Morbidly obese ([facility]) Muscle weakness Osteomyelitis ([facility]) Osteomyelitis ([facility]) 2019 RLE Other lack of coordination Other specified soft tissue disorders Other symbolic dysfunctions Schizophrenia ([facility]) Sleep apnea no CPAP Venous insufficiency Past Surgical History: Past Surgical History: Procedure Laterality Date ABCESS DRAINAGE Right 09/09/2018 FOOT; ACH COLONOSCOPY 09/19/[address] Hyde DILATION AND CURETTAGE OF UTERUS 05/18/2019 HYSTEROSCOPY 12/23/2021 LEG AMPUTATION THROUGH KNEE Right 06/16/2019 UPPER GASTROINTESTINAL ENDOSCOPY N/A 06/29/2023 Dr Sergio Sibley at [facility]; no specimens WISDOM TOOTH EXTRACTION Allergy(ies): No [...] from the original note were not included. [facility] - Infectious Diseases Attending Consult [...] side (HCC) Anxiety disorder Bipolar 1 disorder ([facility]) Blood circulation, collateral Cellulitis chronic L lower leg COVID 12/08/2021 Depression Diabetes mellitus ([facility]) Type II, on insulin Disease of blood and blood forming organ Endometrial carcinoma ([facility]) 11/25/2020 Endometrial hyperplasia Foot ulcer ([facility]) Hx of blood clots RLE prior to amputation Hyperlipidemia Hypertension Lymphedema MDRO (multiple drug resistant organisms) resistance hx CRE and MRSA in 2018, RLE Morbidly obese ([facility]) Muscle weakness Osteomyelitis ([facility]) Osteomyelitis ([facility]) 2019 RLE Other lack of coordination Other specified soft tissue disorders Other symbolic dysfunctions Schizophrenia ([facility]) Sleep apnea no CPAP Venous insufficiency Past Surgical History: Past Surgical History: Procedure Laterality Date ABCESS DRAINAGE Right 09/09/2018 FOOT; ACH COLONOSCOPY 09/19/[address] Hyde DILATION AND CURETTAGE OF UTERUS 05/18/2019 HYSTEROSCOPY 12/23/2021 LEG AMPUTATION THROUGH KNEE Right 06/16/2019 UPPER GASTROINTESTINAL ENDOSCOPY N/A 06/29/2023 Dr Sergio Sibley at [facility]; no specimens WISDOM TOOTH EXTRACTION Current Medications: [...] 10 mg 10 mg Oral Daily Grace Ackermna MD 10 mg at 10/19/24 0947 bisacodyl [...] file Stress: No Stress Concern Present (10/19/2024) [employer] [place] [employer] - Occupational Stress Questionnaire Feeling of Stress : Only a little Social Connections: Unknown (10/19/2024) Social Connection and Isolation Panel [NHANES] Frequency of Communication with Friends and Family: Three times a week Frequency of Social Gatherings with Friends and Family: Once a week Attends Roman [employer] Services: 1 to 4 times per year [...] "COVID19" in the last 72 hours. 10/19/2024 [id number] 1415 Culture, Aerobic Bacteria with Gram Stain [[id number]] Bile from Gallbladder In process Component Value No component results 10/19/2024 31164212/20/2023 1415 Aerobic and Anaerobic Culture with Stain [[id number]] Bile from Gallbladder In process Component Value No component results 10/19/2024 02435312/20/2023 1415 Anaerobic culture [[id number]] Bile from Gallbladder In process Component Value No component results 10/19/2024 20352412/20/2023 0207 Occult blood, stool [[id number]] (Abnormal) Stool from Per Rectum Final result Component Value Fecal occult blood Positive Abnormal 10/18/2024 58078812/20/2023 0022 Urine culture [[id number]] Urine, Clean Catch In process Component Value No component results Lines: PIV site looked ok Radiography/Echo/Other: US guided percutaneous peritoneal or retroperitoneal fluid collection drainage [[id number]] Resulted: 10/19/24 1334 Order Status: Sent Updated: 10/19/24 1405 US abdomen limited [[id number]] Collected: 10/18/242011 Order Status: Completed Updated: 10/18/242021 [...] PM EST CT abdomen pelvis w contrast [[id number]] Collected: 10/18/241904 Order Status: Completed Updated: 10/18/241913 Narrative: [facility] 1965 [id number] Exam Date/Time: 10/18/2024 17:21 Procedure: CT ABDOMEN [...] chest angiogram w and/or wo IV contrast [[id number]] Collected: 10/18/241856 Order Status: Completed Updated: 10/18/241912 Narrative: Patient Name: WILL JACINTO : 1965 [facility]#: [id number] Exam Date/Time: 10/18/2024 17:20 Procedure: CT CHEST [...] original note were not included. Attending Attestation [facility] - Surgery [facility] Physicians Surgery Patient Name: Will Jacinto [...] answered. Lilo Rizo MD General Surgery Pager #[phone] 1:56 PM 10/19/2024 Department of General Surgery [...] denies fever/chills or nausea/vomiting. He resides at [facility] and notes that while oxygen has been [...] side (HCC) Anxiety disorder Bipolar 1 disorder ([facility]) Blood circulation, collateral Cellulitis chronic L lower [...] soft tissue disorders Other symbolic dysfunctions Schizophrenia ([facility]) Sleep apnea no CPAP Venous insufficiency Past Surgical History: Past Surgical History: Procedure Laterality Date ABCESS DRAINAGE Right 09/09/2018 FOOT; ACH COLONOSCOPY 09/19/[address] Hyde DILATION AND CURETTAGE OF UTERUS 05/18/2019 HYSTEROSCOPY 12/23/2021 LEG AMPUTATION THROUGH KNEE Right 06/16/2019 UPPER GASTROINTESTINAL ENDOSCOPY N/A 06/29/2023 Dr Sergio Sibley at [facility]; no specimens WISDOM TOOTH EXTRACTION Current Medications: [...] file Stress: No Stress Concern Present (10/19/2024) [employer] [place] [employer] - Occupational Stress Questionnaire Feeling of Stress : Only a little Social Connections: Unknown (10/19/2024) Social Connection and Isolation Panel [NHANES] Frequency of Communication with Friends and Family: Three times a week Frequency of Social Gatherings with Friends and Family: Once a week Attends [employer] Services: 1 to 4 times per year [...] EST Result History US abdomen limited (Order #[id number]) on 10/18/2024 - Order Result History Report [...] data. No Anne risk assessment data. No ACID POLYMERIZATION OPERATOR Request ID assessment data. No [facility] time study observer ID assessment data. Breast Cancer Risk Navigation Events None Signed by Signed Time Phone Pager Joel Haddad MD 10/18/2024 20:21 Exam Information Status Exam Begun Exam Ended Final 10/18/2024 19:36 10/18/2024 20:00 External Results Report Open External Results Report Encounter View Encounter Study Details Open Study Details Order Transmittal Tracking US abdomen limited (Order #[id number]) on 10/18/24 Order Report US abdomen limited (Order #[id number]) on 10/18/24 CT abdomen pelvis w contrast Status: Final result Link to Procedure Log Procedure Log Orders Requiring a Screening Form Procedure Order Status Order ID Accession Number Form Status CT abdomen pelvis w contrast Completed [id number] Created PACS Images Show images for CT [...] History CT abdomen pelvis w contrast (Order #[id number]) on 10/18/2024 - Order Result History Report CT abdomen pelvis w contrast: Patient Communication Add Comments Not seen Breast Imaging Recommendations Luis ManuelMaria Luisa Mendoza No recommendations exist for this order. Risk Scores No Tyrer-Cuzick assessment data. No Risk Considerations assessment data. No NCC HBOC Guidelines assessment data. No NCCN Caro assessment data. No Risk Explanation Tyrer-Cuzick 8 assessment data. No BRCAPRO assessment data. No Myriad risk assessment data. No Arian risk assessment data. No Anne risk assessment data. No ACID POLYMERIZATION OPERATOR Request ID assessment data. No ACID POLYMERIZATION OPERATOR time study observer ID assessment data. Breast Cancer Risk Navigation [...] Tracking CT abdomen pelvis w contrast (Order #[id number]) on 10/18/[address] abdomen pelvis w contrast (Order #[id number]) on 10/18/24 CBC: Recent Labs 10/18/24 1640 [...] 7:30a-4:30p Wednesday-Wednesday After hours, please contact physician director of undergraduate admissions. Associated Order(s): Inpatient consult to Gastroenterology Images [...] ENDOSCOPY N/A 06/29/2023 Dr Sergio Sibley at [facility]; no specimens WISDOM TOOTH EXTRACTION FAMILY HISTORY: [...] day, Grace Ackerman MD, 10 mL at 10/18/242226 sodium chloride 0.9% (NS) flush 10 mL, [...] @IMAGES@ @RISRSLT@ POCT glucose meter Performed by: [facility], [address] [place] [address] CLIA ID: [id number] @[facility]@ @[facility]@ abdomen limited Final Result 1. Cholestasis, cholelithiasis, [...] provider for clarification.) documented in this encounter [facility] 10-20-2024 Note Formatting of this n ote might be different from the original. Care Management Progress Note Pt remains on 2E. Endo, ID, gen surg, and gastro following. Biliary drain in place, culture in process. Receiving IV ATB. Fecal occult stool positive. Discharge plan is back to [facility] when medically ready. He is a bedhold and will not need auth to return unless he goes back as skilled. consumer marketing manager to follow and assist as needed. Length of Stay (Days): 2 GMLOS: 3.5 [facility] 10-20-2024 Note Formatting of this n ote might be different from the original. Care Management Progress Note Pt remains on 2E. Endo, ID, gen surg, and gastro following. Biliary drain in place, culture in process. Receiving IV ATB. Fecal occult stool positive. Discharge plan is back to [facility] when medically ready. He is a bedhold and will not need auth to return unless he goes back as skilled. consumer marketing manager to follow and assist as needed. Length of Stay (Days): 2 GMLOS: 3.5 [facility] 10-20-2024 Note Problem: Potential f or Compromised Skin Integrity Goal: Skin Integrity is Maintained or Improved Outcome: Progressing Problem: Urinary Incontinence Goal: Perineal skin integrity is maintained or improved Outcome: Progressing [facility] 10-20-2024 Plan of care note Problem: Potential for Compromised Skin Integrity Goal: Skin Integrity is Maintained or Improved Outcome: Progressing Problem: Urinary Incontinence Goal: Perineal skin integrity is maintained or improved Outcome: Progressing [facility] 10-20-2024 Nurse Note Notified Lisa Lopes APRN and Dr. Thomas regarding patients BS. New orders placed. [facility] 10-20-2024 Note Formatting of this n ote might be different from the original. Sent updated notes to return back to [facility] via [facility] per TCC request. Await review and response regarding ability to accept. TCC notified. [facility] 10-20-2024 Note Formatting of this n ote might be different from the original. Sent updated notes to return back to [facility] via [facility] per TCC request. Await review and response regarding ability to accept. TCC notified. [facility] 10-19-2024 Telephone encounter Note Needs to be seen for follow up with any provider, will need ECF to arrange transportation so that patient can be seen in office ans no longer available to manage over the phone [facility] 10-19-2024 Miscellaneous Notes Needs to be seen for follow up with any provider, will need ECF to arrange transportation so that patient can be seen in office ans no longer available to manage over the phone documented in this encounter [facility] 10-19-2024 Note Formatting of this n ote might be different from the original. Referral placed to return back to [facility] via [facility] per TCC request. Await review and response regarding ability to accept. TCC notified. [facility] 10-19-2024 Note Formatting of this n ote might be different from the original. Referral placed to return back to [facility] via [facility] per TCC request. Await review and response regarding ability to accept. TCC notified. [facility] 10-19-2024 Note Referral placed to r marilynurn back to [facility] via [facility] per TCC request. Await review and response regarding ability to accept. TCC notified. [facility] 10-19-2024 Note Formatting of this n ote might be different from the original. Care Managment Initial Assessment Date: 10/19/2024 Patient Name: Will Jacinto : 1965 Patient Information Source of Information: Patient Cognition/Language: WFL - Within Functional Limits Permission given to speak with patient patient access representative/caregiver as indicated: Confirmation of Payer with patient/family: Payer Name: : Confirmation of Primary Care Physician: Primary Caregiver: Other (Comment) (Facility staff) If assistance needed, confirmed caregiver ready, willing and able to care for patient at discharge: Confirmed with: Living Arrangements Current Residence: Number of Floors Number of Entry Steps: Bed/Bath Levels: Facility: [facility] Facility Name: [facility] Plan to Return: Yes Lives with: Other [...] Plan Patient expects to be discharged to: [facility] Discharge Planning Actions: Continue to follow Patient's Choice Rights and [employer] and Collaborative Relationships Disclosed as Indicated for Post-Acute Care: Interdisciplinary Team Engagement: Social Work Referral for: Additional Information: Pt admitted to for gall bladder inflammation. Met with pt at bedside, introduced self and explained role. Pt has insurance with RX coverage, active with PCP. He is a LTC resident at [facility] and would like to return to facility. Pt requires assistance with all ADLS. Requires a deedee for transfers. Tasked LIQUOR STORES AND AGENCIES SUPERVISOR to send return referral to [facility]. Gen surg and ID following. Endocrinology consulted. Receiving IV ATB and fluids. NPO at this time. Pt to have biliary drain placed today. Fecal occult stool positive. Discharge plan will be to return to [facility] once medically ready. consumer marketing manager to follow and assist as needed. Gill Brown RN [facility] 10-19-2024 Note Formatting of this n ote might be different from the original. Care Managment Initial Assessment Date: 10/19/2024 Patient Name: Will Jacinto : 1965 Patient Information Source of Information: Patient Cognition/Language: WFL - Within Functional Limits Permission given to speak with patient patient access representative/caregiver as indicated: Confirmation of Payer with patient/family: Payer Name: [place]: Confirmation of Primary Care Physician: Primary Caregiver: Other (Comment) (Facility staff) If assistance needed, confirmed caregiver ready, willing and able to care for patient at discharge: Confirmed with: Living Arrangements Current Residence: Number of Floors Number of Entry Steps: Bed/Bath Levels: Facility: [facility] Facility Name: [facility] Plan to Return: Yes Lives with: Other [...] Plan Patient expects to be discharged to: [facility] Discharge Planning Actions: Continue to follow Patient's Choice Rights and [employer] and Collaborative Relationships Disclosed as Indicated for Post-Acute Care: Interdisciplinary Team Engagement: Social Work Referral for: Additional Information: Pt admitted to for gall bladder inflammation. Met with pt at bedside, introduced self and explained role. Pt has insurance with RX coverage, active with PCP. He is a LTC resident at [facility] and would like to return to facility. Pt requires assistance with all ADLS. Requires a deedee for transfers. Tasked LIQUOR STORES AND AGENCIES SUPERVISOR to send return referral to [facility]. Gen surg and ID following. Endocrinology consulted. Receiving IV ATB and fluids. NPO at this time. Pt to have biliary drain placed today. Fecal occult stool positive. Discharge plan will be to return to [facility] once medically ready. consumer marketing manager to follow and assist as needed. Gill Brown RN [facility] 10-19-2024 Consult note Associated Order (s): IP CONSULT TO ENDOCRINOLOGY Department of Internal Medicine Division of Endocrinology, Diabetes, & Metabolism Endocrinology Note Patient Name: Will Jacinto : 1965 AGE: 58 y.o. Room/Bed: [facility]254/[facility]254 A Admission Date: 10/18/2024 Visit Date: 10/19/2024 Reason for Endocrine Consult: IDDM on u500 Provider/Team Requesting Consult: Shawna Estrada PCP: Jared Guzman Outpt Sales And Marketing Assistant: Yes - Dr Lee- VV 10/27/2023 ASSESSMENT: [...] bid Outpt Follow Up-- Dr lee or RESEARCH ASSOCIATE PROFESSOR as available - message sent SUBJECTIVE/HPI: CHIEF COMPLAINT: Chief Complaint Patient presents with Abdominal Pain Pt presents to er from [facility]. Pt presents with abd pain, diarrhea, chest [...] found for: CHOLHDLRATIO No results found for: [id number] Lab Results Component Value Date TSH 1.037 12/31/2023 Radiology reportsas per the Radiologist Radiology: POCT glucose meter Result Date: 10/19/2024 Performed by: Nati Bustos, [address] [place] [address] CLIA ID: [id number] POCT glucose meter Result Date: 10/19/2024 Performed by: Nati Bustos, [address] [place] [id number] CLIA ID: [id number] POCT glucose meter Result Date: 10/19/2024 Performed by: Nati Bustos, [address] [facility] [address] CLIA ID: [id number] ECG 12 lead Sinus rhythm Left ventricular hypertrophy Anterior Q waves, possibly due to LVH Electronically Signed On 10-18-2024 23:06:53 EST by Sunitha Borja POCT glucose meter Result Date: 10/18/2024 Performed by: [facility], [address] [facility] [address] CLIA ID: [id number] US abdomen limited Result Date: 10/18/2024 Patient [...] side (HCC) Anxiety disorder Bipolar 1 disorder ([facility]) Blood circulation, collateral Cellulitis chronic L lower leg COVID 12/08/2021 Depression Diabetes mellitus ([facility]) Type II, on insulin Disease of blood and blood forming organ Endometrial carcinoma ([facility]) 11/25/2020 Endometrial hyperplasia Foot ulcer ([facility]) Hx of blood clots RLE prior to amputation Hyperlipidemia Hypertension Lymphedema 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, RLE Morbidly obese ([facility]) Muscle weakness Osteomyelitis (HCC) Osteomyelitis (HCC) 2019 RLE Other lack of coordination Other specified soft tissue disorders Other symbolic dysfunctions Schizophrenia ([facility]) Sleep apnea no CPAP Venous insufficiency Past Surgical History: Past Surgical History: Procedure Laterality Date ABCESS DRAINAGE Right 09/09/2018 FOOT; ACH COLONOSCOPY 09/19/[address] Hyde DILATION AND CURETTAGE OF UTERUS 05/18/2019 HYSTEROSCOPY 12/23/2021 LEG AMPUTATION THROUGH KNEE Right 06/16/2019 UPPER GASTROINTESTINAL ENDOSCOPY N/A 06/29/2023 Dr Sergio Sibley at [facility]; no specimens WISDOM TOOTH EXTRACTION Allergy(ies): No [...] Lee MD at 10/20/2024 1:24 PM EST [facility] 10-19-2024 Consult note Associated Order (s): IP CONSULT TO INFECTIOUS DISEASES Images from the original note were not included. [facility] - Infectious Diseases Attending Consult [...] ENDOSCOPY N/A 06/29/2023 Dr Sergio Sibley at [facility]; no specimens WISDOM TOOTH EXTRACTION Current Medications: [...] file Stress: No Stress Concern Present (10/19/2024) [employer] [place] [employer] - Occupational Stress Questionnaire Feeling of Stress : Only a little Social Connections: Unknown (10/19/2024) Social Connection and Isolation Panel [NHANES] Frequency of Communication with Friends and Family: Three times a week Frequency of Social Gatherings with Friends and Family: Once a week Attends [employer] Services: 1 to 4 times per year [...] 98 -- 93 % -- -- 10/18/24 210 114/66 36.7 C (98 F) Temporal 94 [...] "COVID19" in the last 72 hours. 10/19/2024 90731012/20/2023 1415 Culture, Aerobic Bacteria with Gram Stain [[id number]] Bile from Gallbladder In process Component Value No component results 10/19/2024 27020012/20/2023 1415 Aerobic and Anaerobic Culture with Stain [[id number]] Bile from Gallbladder In process Component Value No component results 10/19/2024 10810612/20/2023 1415 Anaerobic culture [[id number]] Bile from Gallbladder In process Component Value No component results 10/19/2024 63467712/20/2023 0207 Occult blood, stool [[id number]] (Abnormal) Stool from Per Rectum Final result Component Value Fecal occult blood Positive Abnormal 10/18/2024 26545112/20/2023 0022 Urine culture [[id number]] Urine, Clean Catch In process Component Value No component results Lines: PIV site looked ok Radiography/Echo/Other: US guided percutaneous peritoneal or retroperitoneal fluid collection drainage [[id number]] Resulted: 10/19/24 1334 Order Status: Sent Updated: 10/19/24 1405 US abdomen limited [[id number]] Collected: 10/18/242011 Order Status: Completed Updated: 10/18/242021 [...] PM EST CT abdomen pelvis w contrast [[id number]] Collected: 10/18/241904 Order Status: Completed Updated: 10/18/241913 [...] chest angiogram w and/or wo IV contrast [[id number]] Collected: 10/18/241856 Order Status: Completed Updated: 10/18/241912 Narrative: Patient Name: WILL JACINTO : 1965 [facility]#: [id number] Exam Date/Time: 10/18/2024 17:20 Procedure: CT CHEST [...] benefits, and consideration of use of antimicrobials. [facility] 10-19-2024 Plan of care note [...] integrity is maintained or improved Outcome: Progressing [facility] 10-19-2024 Consult note Associated Order (s): IP CONSULT TO GENERAL SURGERY Images from the original note were not included. Attending Attestation [facility] - Surgery [facility] Physicians Surgery Patient Name: Will Jacinto [...] answered. Lilo Rizo MD General Surgery Pager #[phone] 1:56 PM 10/19/2024 Department of General Surgery [...] denies fever/chills or nausea/vomiting. He resides at [facility] and notes that while oxygen has been [...] Acquired absence of other toe(s), unspecified side ([facility]) Anxiety disorder Bipolar 1 disorder ([facility]) Blood circulation, collateral Cellulitis chronic L lower leg COVID 12/08/2021 Depression Diabetes mellitus ([facility]) Type II, on insulin Disease of blood and blood forming organ Endometrial carcinoma ([facility]) 11/25/2020 Endometrial hyperplasia Foot ulcer ([facility]) Hx of blood clots RLE prior to amputation Hyperlipidemia Hypertension Lymphedema MDRO (multiple drug resistant organisms) resistance hx CRE and MRSA in 2018, RLE Morbidly obese ([facility]) Muscle weakness Osteomyelitis (HCC) Osteomyelitis ([facility]) 2019 RLE Other lack of coordination Other specified soft tissue disorders Other symbolic dysfunctions Schizophrenia ([facility]) Sleep apnea no CPAP Venous insufficiency Past Surgical History: Past Surgical History: Procedure Laterality Date ABCESS DRAINAGE Right 09/09/2018 FOOT; [facility] COLONOSCOPY 09/19/[address] Hyde DILATION AND CURETTAGE OF UTERUS 05/18/2019 HYSTEROSCOPY 12/23/2021 LEG AMPUTATION THROUGH KNEE Right 06/16/2019 UPPER GASTROINTESTINAL ENDOSCOPY N/A 06/29/2023 Dr Sergio Sibley at [facility]; no specimens WISDOM TOOTH EXTRACTION Current Medications: [...] file Stress: No Stress Concern Present (10/19/2024) [employer] [place] [employer] - Occupational Stress Questionnaire Feeling of Stress : Only a little Social Connections: Unknown (10/19/2024) Social Connection and Isolation Panel [NHANES] Frequency of Communication with Friends and Family: Three times a week Frequency of Social Gatherings with Friends and Family: Once a week Attends [employer] Services: 1 to 4 times per year [...] Impression Patient Name: WILL JACINTO : 1965 [facility]#: [id number] Exam Date/Time: 10/18/2024 19:36 Procedure: US ABDOMEN [...] EST Result History US abdomen limited (Order #[id number]) on 10/18/2024 - Order Result History Report [...] data. No Anne risk assessment data. No [facility] Request ID assessment data. No [facility] time study observer ID assessment data. Breast Cancer Risk Navigation Events None Signed by Signed Time Phone Pager Joel Haddad MD 10/18/2024 20:21 Exam Information Status Exam Begun Exam Ended Final 10/18/2024 19:36 10/18/2024 20:00 External Results Report Open External Results Report Encounter View Encounter Study Details Open Study Details Order Transmittal Tracking US abdomen limited (Order #[id number]) on 10/18/24 Order Report US abdomen limited (Order #[id number]) on 10/18/24 CT abdomen pelvis w contrast Status: Final result Link to Procedure Log Procedure Log Orders Requiring a Screening Form Procedure Order Status Order ID Accession Number Form Status CT abdomen pelvis w contrast Completed [id number] Created PACS Images Show images for CT [...] History CT abdomen pelvis w contrast (Order #[id number]) on 10/18/2024 - Order Result History Report [...] data. No Anne risk assessment data. No ACID POLYMERIZATION OPERATOR Request ID assessment data. No ACID POLYMERIZATION OPERATOR time study observer ID assessment data. Breast Cancer Risk Navigation [...] Tracking CT abdomen pelvis w contrast (Order #[id number]) on 10/18/[address] abdomen pelvis w contrast (Order #[id number]) on 10/18/24 CBC: Recent Labs 10/18/24 1640 [...] 7:30a-4:30p Wednesday-Wednesday After hours, please contact physician director of undergraduate admissions. [facility] 10-19-2024 Consult note Associated Order (s): Inpatient [...] Acquired absence of other toe(s), unspecified side ([facility]) Anxiety disorder Bipolar 1 disorder ([facility]) Blood circulation, collateral Cellulitis chronic L lower leg COVID 12/08/2021 Depression Diabetes mellitus ([facility]) Type II, on insulin Disease of blood and blood forming organ Endometrial carcinoma (HCC) 11/25/2020 Endometrial hyperplasia Foot ulcer ([facility]) Hx of blood clots RLE prior to amputation Hyperlipidemia Hypertension Lymphedema 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, RLE Morbidly obese ([facility]) Muscle weakness Osteomyelitis (HCC) Osteomyelitis (HCC) 2019 RLE Other lack of coordination Other specified soft tissue disorders Other symbolic dysfunctions Schizophrenia ([facility]) Sleep apnea no CPAP Venous insufficiency PAST SURGICAL HISTORY: Past Surgical History: Procedure Laterality Date ABCESS DRAINAGE Right 09/09/2018 FOOT; [facility] COLONOSCOPY 09/19/[address] Hyde DILATION AND CURETTAGE OF UTERUS 05/18/2019 HYSTEROSCOPY 12/23/2021 LEG AMPUTATION THROUGH KNEE Right 06/16/2019 UPPER GASTROINTESTINAL ENDOSCOPY N/A 06/29/2023 Dr Sergio Sibley at [facility]; no specimens WISDOM TOOTH EXTRACTION FAMILY HISTORY: [...] POCT glucose meter Performed by: Nati Vigil [facility], [address] [place] [id number] CLIA ID: [id number] [facility]@ @[facility]@ abdomen limited Final Result 1. Cholestasis, cholelithiasis, [...] to contact the dictating provider for clarification.) [employer] Work Phone: 10-18-2024 History and physical note Attending [...] ENDOSCOPY N/A 06/29/2023 Dr Sergio Sibley at [facility]; no specimens WISDOM TOOTH EXTRACTION Social History: [...] - Date - 10/20/24 - [facility] - Pending the following [...] - DO NOT do CPR, intubation] [_] [DNR-LIVESTOCK HAULIER - Comfort care only] [_] DNR form [...] Grace Ackerman MD Division of Hospitalist Medicine [facility] [employer] Work Phone: 10-18-2024 Note [facility] 10-18-2024 History and physical note Attending [...] side (HCC) Anxiety disorder Bipolar 1 disorder ([facility]) Blood circulation, collateral Cellulitis chronic L lower leg COVID 12/08/2021 Depression Diabetes mellitus (HCC) Type II, on insulin Disease of blood and blood forming organ Endometrial carcinoma (HCC) 11/25/2020 Endometrial hyperplasia Foot ulcer ([facility]) Hx of blood clots RLE prior to [...] ENDOSCOPY N/A 06/29/2023 Dr Sergio Sibley at [facility]; no specimens WISDOM TOOTH EXTRACTION Social History: [...] - Date - 10/20/24 - [facility] (Non-Skilled) - Pending the following [...] Mobile Relation: Other [employer] Will M Corrine : 1965 Primary Care Physician: Jared Guzman The patient and/or family/surrogate voluntarily agreed to participate in ACP services. Patient s cognitive capacity: AOx3 Code Status: [x_] [FULL CODE - Continue all advanced life support: CPR,intubation,invasive procedures] [_] [DNR-CCA - DO NOT do CPR, intubation] [_] [DNR-LIVESTOCK HAULIER - Comfort care only] [_] DNR form [...] Grace Ackerman MD Division of Hospitalist Medicine [facility] documented in this encounter [facility] 10-18-2024 Emergency department Note EKG at bedside [facility] 10-18-2024 Emergency department Note EKG at bedside EKG called EMERGENCY DEPARTMENT ENCOUNTER Pt Name: Maria Luisa Jacinto Birthdate 1965 Date of evaluation: 10/18/2024 ED Provider: Dontrell Woodall DO CHIEF COMPLAINT Chief Complaint Patient presents with Abdominal Pain [facility]. Pt presents with abd pain, diarrhea, chest [...] Acquired absence of other toe(s), unspecified side ([facility]) Anxiety disorder Bipolar 1 disorder ([facility]) Blood circulation, collateral Cellulitis chronic L lower leg COVID 12/08/2021 Depression Diabetes mellitus ([facility]) Type II, on insulin Disease of blood and blood forming organ Endometrial carcinoma ([facility]) 11/25/2020 Endometrial hyperplasia Foot ulcer ([facility]) Hx of blood clots RLE prior to amputation Hyperlipidemia Hypertension Lymphedema 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, RLE Morbidly obese ([facility]) Muscle weakness Osteomyelitis ([facility]) Osteomyelitis ([facility]) 2019 RLE Other lack of coordination Other specified soft tissue disorders Other symbolic dysfunctions Schizophrenia ([facility]) Sleep apnea no CPAP Venous insufficiency SURGICAL HISTORY Past Surgical History: Procedure Laterality Date ABCESS DRAINAGE Right 09/09/2018 FOOT; [facility] COLONOSCOPY 09/19/[address] Hyde DILATION AND CURETTAGE OF UTERUS 05/18/2019 HYSTEROSCOPY 12/23/2021 LEG AMPUTATION THROUGH KNEE Right 06/16/2019 UPPER GASTROINTESTINAL ENDOSCOPY N/A 06/29/2023 Dr Sergio Sibley at [facility]; no specimens WISDOM TOOTH EXTRACTION CURRENT MEDICATIONS [...] Culture. Procedure Abnormality Status --------- ------ Complete Urinalysis[[id number]] Please view results for these tests on [...] Response: Oriented Best Motor Response: Follows commands [place] Coma Scale Score: 15 This is a [...] DO 10/18/241935 Pt presents to er from [facility]. Pt presents with abd pain, diarrhea, chest pain. Pt presents aox4 speaking in full and complete sentences. documented in this encounter [facility] 10-18-2024 Emergency department Note EKG called [facility] 10-18-2024 Emergency department Triage note Pt presents to er from [facility]. Pt presents with abd pain, diarrhea, chest pain. Pt presents aox4 speaking in full and complete sentences. [facility] 10-18-2024 Physician Emergency department Note EMERGENCY DEPARTMENT ENCOUNTER Pt Name: Maria Luisa Jacinto Birthdate 1965 Date of evaluation: 10/18/2024 ED Provider: Dontrell Woodall DO CHIEF COMPLAINT Chief Complaint Patient presents with Abdominal Pain Pt presents to er from [facility]. Pt presents with abd pain, diarrhea, chest [...] Acquired absence of other toe(s), unspecified side ([facility]) Anxiety disorder Bipolar 1 disorder ([facility]) Blood circulation, collateral Cellulitis chronic L lower leg COVID 12/08/2021 Depression Diabetes mellitus ([facility]) Type II, on insulin Disease of blood and blood forming organ Endometrial carcinoma ([facility]) 11/25/2020 Endometrial hyperplasia Foot ulcer ([facility]) Hx of blood clots RLE prior to amputation Hyperlipidemia Hypertension Lymphedema 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, RLE Morbidly obese ([facility]) Muscle weakness Osteomyelitis (HCC) Osteomyelitis ([facility]) 2019 RLE Other lack of coordination Other specified soft tissue disorders Other symbolic dysfunctions Schizophrenia ([facility]) Sleep apnea no CPAP Venous insufficiency SURGICAL HISTORY Past Surgical History: Procedure Laterality Date ABCESS DRAINAGE Right 09/09/2018 FOOT; [facility] COLONOSCOPY 09/19/[address] Hyde DILATION AND CURETTAGE OF UTERUS 05/18/2019 HYSTEROSCOPY 12/23/2021 LEG AMPUTATION THROUGH KNEE Right 06/16/2019 UPPER GASTROINTESTINAL ENDOSCOPY N/A 06/29/2023 Dr Sergio Sibley at [facility]; no specimens WISDOM TOOTH EXTRACTION CURRENT MEDICATIONS [...] Culture. Procedure Abnormality Status --------- ------ Complete Urinalysis[[id number]] Please view results for these tests on [...] mL (100 mL IntraVENous Given 10/18/24 1806) [place] Coma Scale Best Eye Response: Spontaneous Best Verbal Response: Oriented Best Motor Response: Follows commands [place] Coma Scale Score: 15 This is a [...] Emergency Medicine Provider Dontrell Woodall DO 10/18/241935 [facility] 09-20-2024 Telephone encounter Note Faxed recommendation to [facility]. Thank you! [facility] 09-20-2024 Miscellaneous Notes Faxed recommendation to [facility]. Thank you! Very high doses with variability and history severe hypoglycemia- would not change doses for now Images from the original note were not included. Patient's BGL documented in this encounter [facility] 09-19-2024 Telephone encounter Note Very high doses with variability and history severe hypoglycemia- would not change doses for now [email or web address] Phone: 09-19-2024 Telephone encounter Note Images from the original note were not included. Patient's BGL [facility] 09-13-2024 Telephone encounter Note Faxed info. To [facility]. [phone] [facility] 09-13-2024 Miscellaneous Notes Faxed info. To [facility]. [phone] Keep doses the same for now thank you Images from the original note were not included. Patient's BGL documented in this encounter [facility] 09-11-2024 Telephone encounter Note Keep doses the same for now thank you [email or web address] Phone: 09-11-2024 Miscellaneous Notes Keep doses the same for now thank you Images from the original note were not included. Patient's BGL documented in this encounter [facility] 09-11-2024 Telephone encounter Note Images from the original note were not included. Patient's BGL [facility] 08-09-2024 Miscellaneous Notes There's a more recent BGL that you also advised no changes. I faxed over recommendation to [facility]. Thank you! Please keep doses the same thank you Images from the original note were not included. Patient's BGL documented in this encounter [facility] 08-09-2024 Telephone encounter Note There's a more recent BGL that you also advised no changes. I faxed over recommendation to [facility]. Thank you! [facility] 08-09-2024 Telephone encounter Note Faxed recommendation to [facility]. Thank you! [facility] 08-09-2024 Miscellaneous Notes Faxed recommendation to [facility]. Thank you! Somewhat improved; would not make any changes at this point thank you Images from the original note were not included. Patient's BGL documented in this encounter [facility] 08-08-2024 Telephone encounter Note Somewhat improved; would not make any changes at this point thank you [email or web address] Phone: 08-08-2024 Miscellaneous Notes Somewhat improved; would not make any changes at this point thank you Images from the original note were not included. Patient's BGL documented in this encounter [facility] 08-08-2024 Telephone encounter Note Images from the original note were not included. Patient's BGL [facility] 08-04-2024 Telephone encounter Note Please keep doses the same thank you [email or web address] Phone: 08-04-2024 Miscellaneous Notes Please keep doses the same thank you Images from the original note were not included. Patient's BGL documented in this encounter [facility] 08-03-2024 Telephone encounter Note Images from the original note were not included. Patient's BGL [facility] 07-18-2024 Note Addended by: RADHA BUSBY on: 07/18/2024 02:17 PM Modules accepted: Orders [facility] 07-18-2024 Note Addended by: RADHA BUSBY on: 07/18/2024 02:17 PM Modules accepted: Orders [facility] 07-18-2024 Note Addended by: RADHA BUSBY on: 07/18/2024 02:17 PM Modules accepted: Orders [facility] 07-18-2024 Telephone encounter Note Called [facility] and spoke with nurse. I relayed the message below and she verbalized understanding. [facility] 07-18-2024 Miscellaneous Notes Addended by: RADHA BUSBY on: 07/18/2024 02:17 PM Modules accepted: Orders Called [facility] and spoke with nurse. I relayed the message below and she verbalized understanding. Increase lantus to 45 twice daily thank you Patient is currently taking Humulin R U500(130 units TID) and lantus(30 units BID). Please confirm current u500 doses thank you Images from the original note were not included. Patient's BGL documented in this encounter [facility] 07-18-2024 Telephone encounter Note Increase lantus to 45 twice daily thank you [facility] Work Phone: 07-18-2024 Telephone encounter Note Patient is currently taking Humulin R U500(130 units TID) and lantus(30 units BID). [facility] 07-17-2024 Telephone encounter Note Please confirm current u500 doses thank you [facility] 07-17-2024 Telephone encounter Note Images from the original note were not included. Patient's BGL [facility] 05-02-2024 Telephone encounter Note Faxed recommendation to [facility]([phone]) Thank you! [facility] 05-02-2024 Miscellaneous Notes Faxed recommendation to [facility]([phone]) Thank you! A lot of fluctuation and patient is prone to severe hypoglycemia so would not change dose thank you BS Log for 04/25/24 - 05/01/24 scanned into media for review. Please advise. Thank you. documented in this encounter [facility] 05-02-2024 Telephone encounter Note A lot of fluctuation and patient is prone to severe hypoglycemia so would not change dose thank you [email or web address] Phone: 05-02-2024 Telephone encounter Note BS Log for 04/25/24 - 05/01/24 scanned into media for review. Please advise. Thank you. [facility] 02-24-2024 Telephone encounter Note Please ask to increase u500 insulin with meals to 85 units with meals thank you [email or web address] Phone: 02-24-2024 Miscellaneous Notes Please ask to increase u500 insulin with meals to 85 units with meals thank you Nabil returned call. Nabil Message released to patient as written. Radha Busby MA Quantitative Manager Signed 2:13 PM [facility] [...] included. Patient's BGL documented in this encounter [facility] 02-23-2024 Telephone encounter Note Nabil returned call. Nabil Message released to patient as written. Radha Bubsy MA Quantitative Manager Signed 2:13 PM [facility] [...] relayed to the patient from encounter: N/A [facility] 02-23-2024 Miscellaneous Notes Nabil returned call. Nabil Message released to patient as written. Radha Busby MA Quantitative Manager Signed 2:13 PM [facility] to confirm current DM insulin regimen. Nurse [...] to the patient from encounter: N/A [facility] to confirm current DM insulin regimen. Nurse [...] included. Patient's BGL documented in this encounter [facility] 02-23-2024 Telephone encounter Note Called [facility] to confirm current DM insulin regimen. Nurse was unavailable and will call back. We have on file that patient is taking lantus 30 units two times daily and humulin R U500 70 units with meals. [facility] can release message to confirm the doses. Please also inform them for future blood sugar logs to also send current med. List. Thank you! [facility] 02-22-2024 Telephone encounter Note Please see if we can get a the patient's current dm meds with the next fax so we can adjust. Thank you [facility] Work Phone: 02-22-2024 Miscellaneous Notes Please see if we can get a the patient's current dm meds with the next fax so we can adjust. Thank you Images from the original note were not included. Patient's BGL documented in this encounter [facility] 02-22-2024 Telephone encounter Note Images from the original note were not included. 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), unspecified side (HCC) Anxiety disorder Bipolar 1 disorder ([facility]) Blood circulation, collateral Cellulitis chronic L lower leg COVID 12/08/2021 Depression Diabetes mellitus ([facility]) Type II, on insulin Disease of blood and blood forming organ Endometrial carcinoma ([facility]) 11/25/2020 Endometrial hyperplasia Foot ulcer ([facility]) Hx of blood clots RLE prior to amputation Hyperlipidemia Hypertension Lymphedema 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 documented in this encounter [facility] 02-11-2024 Instructions Urszula Herring MA - 02/11/2024 10:10 AM EDT YOUR APPOINTMENT TODAY WAS WITH THE [facility] LUNG NODULE [facility], COPD CLINIC, PULMONARY AND SLEEP MEDICINE OFFICE. PLEASE CALL OUR OFFICE AT [phone] IF YOU HAVE NOT RECEIVED YOUR TEST [...] to make improvements. COVID-19 VACCINATION INFORMATION: PH. [phone] [email or web address] [facility] Central Scheduling [phone] [facility] Sleep Scheduling [phone] documented in this encounter [facility] 01-28-2024 Emergency department Note Report called to Preethi Frias RN. Sonya Hill RN 01/28/[address] [facility] 01-28-2024 Emergency department Note Report called to [...] Nolan RN 01/27/241923 documented in this encounter [facility] 01-27-2024 Emergency department Note Report to PASTORA Almendarez. Maylin Nolan RN 01/27/24[address] [facility] 01-27-2024 Emergency department Note DM transport arranged. ETA 3-4 hours. Maylin Nolan RN 01/27/24[address] [facility] 01-27-2024 Hospital Discharg e tayla Low II, [...] 200 units once daily. Follow-up with your music promoter in the office within the next week. documented in this encounter [facility] 01-27-2024 Emergency department Note Patient quickly ate his sack lunch and two diet cokes. Shortly after patient complains of stomach pain. Provider notified. Maylin Nolan RN 01/27/24[address] [facility] 01-27-2024 Emergency department Note Sack lunch provided. Maylin Nolan RN 01/27/241923 [facility] 01-26-2024 Emergency department Note Patient provided sack lunch per his request. Denise Terry RN 01/26/242229 [facility] 01-26-2024 Emergency department Note Patient provided sack lunch per his request. Denise Terry RN 01/26/242229 I did not see or evaluate this patient in the ED. Mark Couch PA-C 01/26/242127 EMERGENCY DEPARTMENT ENCOUNTER Pt Name: Will Jacinto Birthdate 1965 Date of evaluation: 01/26/2024 ED Provider: Art Zeng DO CHIEF COMPLAINT Chief Complaint Patient presents with Hypoglycemia Patient reports from [facility] for low blood sugar. Facility states [...] hypoglycemia. Blood sugar was 48 at his [facility], he says they gave him some pudding, [...] side (HCC) Anxiety disorder Bipolar 1 disorder ([facility]) Blood circulation, collateral Cellulitis chronic L lower [...] soft tissue disorders Other symbolic dysfunctions Schizophrenia ([facility]) Sleep apnea no CPAP Venous insufficiency SURGICAL HISTORY Past Surgical History: Procedure Laterality Date ABCESS DRAINAGE Right 09/09/2018 FOOT; ACH COLONOSCOPY 09/19/[address] Hyde DILATION AND CURETTAGE OF UTERUS 05/18/2019 HYSTEROSCOPY 12/23/2021 LEG AMPUTATION THROUGH KNEE Right 06/16/2019 UPPER GASTROINTESTINAL ENDOSCOPY N/A 06/29/2023 Dr Sergio Sibley at [facility]; no specimens WISDOM TOOTH EXTRACTION CURRENT MEDICATIONS [...] Value Glucose 102 (*) Narrative: Performed by: [facility] [email or web address] [facility], [address] [place] [id number] CLIA ID: [id number] POCT GLUCOSE METER UNSOLICITED RESULTS - Abnormal Glucose 111 (*) Narrative: Performed by: [facility] [email or web address] [facility], [address] [place] [id number] CLIA ID: [id number] POCT GLUCOSE METER UNSOLICITED RESULTS - Abnormal Glucose 101 (*) Narrative: Performed by: [facility], [address] [place] [id number] CLIA ID: [id number] All other labs were within normal range [...] Hypoglycemia PATIENT REFERRED TO: Jared Guzman [address] [facility] [address] Schedule an appointment as soon [...] Zeng DO 01/26/242215 documented in this encounter [facility] 01-26-2024 Hospital Discharg e instructions Art Zeng DO - 01/26/2024 10:15 PM EDT Call your doctor in the morning to schedule follow up. Eat regular meals and snacks. Return to the ED for recurrent symptoms or if any other problems arise. The following attachments cannot be sent through Care Everywhere.Low Blood Sugar Discharge Instructions, Adult (Israeli)documented in this encounter [facility] 01-26-2024 Physician Emergency department Note I did not see or evaluate this patient in the ED. Mark Couch PA-C 01/26/242127 [facility] Work Phone: 01-26-2024 Physician Emergency department Note EMERGENCY DEPARTMENT ENCOUNTER Pt Name: Will Jacinto Birthdate 1965 Date of evaluation: 01/26/2024 ED Provider: Art Zeng DO CHIEF COMPLAINT Chief Complaint Patient presents with Hypoglycemia Patient reports from [facility] for low blood sugar. Facility states that it was 48. Patient was fed and EMS sugar was 76. On arrival to room BGM was 102. HISTORY OF PRESENT ILLNESS (Location/Symptom, Timing/Onset, Context/Setting, Quality, Duration, Modifying Factors, Severity) Note limiting factors. HPI Will Jacinto is a 58 y.o. adult who presents to the emergency department due to hypoglycemia. Blood sugar was 48 at his [facility], he says they gave him some pudding, [...] Acquired absence of other toe(s), unspecified side ([facility]) Anxiety disorder Bipolar 1 disorder ([facility]) Blood circulation, collateral Cellulitis chronic L lower leg COVID 12/08/2021 Depression Diabetes mellitus ([facility]) Type II, on insulin Disease of blood and blood forming organ Endometrial carcinoma ([facility]) 11/25/2020 Endometrial hyperplasia Foot ulcer ([facility]) Hx of blood clots RLE prior to amputation Hyperlipidemia Hypertension Lymphedema 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, RLE Morbidly obese ([facility]) Muscle weakness Osteomyelitis ([facility]) Osteomyelitis ([facility]) 2019 RLE Other lack of coordination Other specified soft tissue disorders Other symbolic dysfunctions Schizophrenia ([facility]) Sleep apnea no CPAP Venous insufficiency SURGICAL HISTORY Past Surgical History: Procedure Laterality Date ABCESS DRAINAGE Right 09/09/2018 FOOT; ACH COLONOSCOPY 09/19/[address] Hyde DILATION AND CURETTAGE OF UTERUS 05/18/2019 HYSTEROSCOPY 12/23/2021 LEG AMPUTATION THROUGH KNEE Right 06/16/2019 UPPER GASTROINTESTINAL ENDOSCOPY N/A 06/29/2023 Dr Sergio Sibley at [facility]; no specimens WISDOM TOOTH EXTRACTION CURRENT MEDICATIONS [...] Value Glucose 102 (*) Narrative: Performed by: [facility], [address] [place] [id number] CLIA ID: [id number] POCT GLUCOSE METER UNSOLICITED RESULTS - Abnormal Glucose 111 (*) Narrative: Performed by: [facility], [address] [place] [address], Counts include 234 beds at the [facility] [address] CLIA ID: [id number] POCT GLUCOSE METER UNSOLICITED RESULTS - Abnormal Glucose 101 (*) Narrative: Performed by: [facility], [address] [place] [address], Counts include 234 beds at the [facility] [address] CLIA ID: [id number] All other labs were within normal range [...] Hypoglycemia PATIENT REFERRED TO: Jared Guzman [address] [facility] [id number] Schedule an appointment as soon as possible [...] Medicine Provider Art Zeng DO 01/26/[address] [facility] 01-24-2024 Telephone encounter Note Pt again appeared on ED Nuance for CT AP 01/22/24; noting stable 8mm nodule; unchanged from 08/2023 report. Pt to keep appt for fu with Herber Ramos 02/11/24. Navigators to follow. [facility] 01-24-2024 Miscellaneous Notes Pt again appeared on [...] is unchanged since 08/08/2023. Referral: known to [facility]; [facility] imaging n/a Pt is documented as never smoker Additional Risk Factors: na Planning CT low dose fu 01/06/24 will send to provider to confirm plan for fu. Pt has scheduled appt with Herber Ramos 02/11/24. documented in this encounter [facility] 01-22-2024 Emergency department Note EMERGENCY DEPARTMENT ENCOUNTER [...] side (HCC) Anxiety disorder Bipolar 1 disorder ([facility]) Blood circulation, collateral Cellulitis chronic L lower leg COVID 12/08/2021 Depression Diabetes mellitus ([facility]) Type II, on insulin Disease of blood and blood forming organ Endometrial carcinoma ([facility]) 11/25/2020 Endometrial hyperplasia Foot ulcer ([facility]) Hx of blood clots RLE prior to [...] ENDOSCOPY N/A 06/29/2023 Dr Sergio Sibley at [facility]; no specimens WISDOM TOOTH EXTRACTION CURRENT MEDICATIONS [...] Culture. Procedure Abnormality Status --------- ------ Complete Urinalysis[[id number]] Abnormal Final result Please view results for [...] 01/22/2024 05:54:09 AM PATIENT REFERRED TO: Jared Matadomo [address] [facility] [phone] Schedule an appointment as soon [...] for abd pain. documented in this encounter [facility] 01-22-2024 Emergency department Triage note Pt presents to er from snf for abd pain. [facility] 01-22-2024 Physician Emergency department Note EMERGENCY DEPARTMENT [...] side (HCC) Anxiety disorder Bipolar 1 disorder ([facility]) Blood circulation, collateral Cellulitis chronic L lower leg COVID 12/08/2021 Depression Diabetes mellitus ([facility]) Type II, on insulin Disease of blood and blood forming organ Endometrial carcinoma ([facility]) 11/25/2020 Endometrial hyperplasia Foot ulcer ([facility]) Hx of blood clots RLE prior to amputation Hyperlipidemia Hypertension Lymphedema MDRO (multiple drug resistant organisms) resistance hx CRE and MRSA in 2018, RLE Morbidly obese ([facility]) Muscle weakness Osteomyelitis (HCC) Osteomyelitis ([facility]) 2019 RLE Other lack of coordination Other specified soft tissue disorders Other symbolic dysfunctions Schizophrenia ([facility]) Sleep apnea no CPAP Venous insufficiency SURGICAL HISTORY Past Surgical History: Procedure Laterality Date ABCESS DRAINAGE Right 09/09/2018 FOOT; ACH COLONOSCOPY 09/19/[address] Hyde DILATION AND CURETTAGE OF UTERUS 05/18/2019 HYSTEROSCOPY 12/23/2021 LEG AMPUTATION THROUGH KNEE Right 06/16/2019 UPPER GASTROINTESTINAL ENDOSCOPY N/A 06/29/2023 Dr Sergio Sibley at [facility]; no specimens WISDOM TOOTH EXTRACTION CURRENT MEDICATIONS [...] followup in 3 months Report Dictated on Workstation: Quigo Electronically Signed By: Brandon Morgan MD Electronically [...] Culture. Procedure Abnormality Status --------- ------ Complete Urinalysis[[id number]] Abnormal Final result Please view results for [...] bolus 1,000 mL (0 mL IntraVENous Stopped 01/22/24 0410) ondansetron (Zofran) injection 4 mg (4 mg IntraVENous Given 01/22/24 0310) iopamidol (Isovue-370) 76 % injection 75 mL (75 mL IntraVENous Given 01/22/24 4172) cefTRIAXone (Rocephin) 1,000 mg in sodium chloride 0.9 % 50 mL IVPB Mini-Bag Plus (1,000 mg IntraVENous New Bag 01/22/24 8484) REVAL: CRITICAL CARE TIME None CONSULTS: None [...] 05:54:09 AM PATIENT REFERRED TO: Jared Guzman [address] [facility] [phone] Schedule an appointment as soon [...] Emergency Medicine Provider Jaquan Morris DO 01/22/246[address] [facility] 01-21-2024 Telephone encounter Note Called SNF and spoke to Marques who will leave a message for [facility]. Notified them the the pts care can be moved to the [place] office, and to just let the office know after her upcoming appt. [facility] 01-21-2024 Miscellaneous Notes Called SNF and spoke to Marques who will leave a message for Suri. Notified them the the pts care can be moved to the [place] office, and to just let the office know after her upcoming appt. Called SNF and spoke to Quiana who stated that the person that I need to talk to has left for the day and requested that I called tomorrow. Name of caller: Suri Contact phone number: [phone] Relationship to Patient: [facility] Provider: MD Jesus Practice: [facility] Endocrinology Chief Complaint/Reason for Call: Suri called in to see if Pt's F/U appt could be moved to the [place] location. Scheduling is into Jul. [facility] and she stated she will keep the scheduled appt at [facility] location, but would like to know if Pt can be scheduled at the [place] location for his next f/u appt. Please advise Best time of day caller can be reached: Any Patient advised that office/PCP has 24-48 business hours to return their call: N/A documented in this encounter [facility] 01-20-2024 Telephone encounter Note Called SNF and spoke to Quiana who stated that the person that I need to talk to has left for the day and requested that I called tomorrow. [facility] 01-20-2024 Telephone encounter Note Name of caller: Suri Contact phone number: [phone] Relationship to Patient: [facility] Provider: MD Jesus Practice: [facility] Endocrinology Chief Complaint/Reason for Call: Suri called in to see if Pt's F/U appt could be moved to the [place] location. Scheduling is into Jul. [facility] did advise Suri and she stated she will keep the scheduled appt at [facility] location, but would like to know if Pt can be scheduled at the [place] location for his next f/u appt. Please advise Best time of day caller can be reached: Any Patient advised that office/PCP has 24-48 business hours to return their call: N/A [facility] 01-20-2024 Telephone encounter Note Faxed recommendation to [facility]([phone]). [facility] 01-20-2024 Miscellaneous Notes Faxed recommendation to [facility]([phone]). Please keep doses the same thank you Images from the original note were not included. Patient's BGL documented in this encounter [facility] 01-19-2024 Telephone encounter Note Please keep doses the same thank you [facility] Work Phone: 01-19-2024 Telephone encounter Note Images from the original note were not included. Patient's BGL [facility] 01-04-2024 Telephone encounter Note Defer CT chest (imaging has been cancelled) Keep appt schedule 02/11/24 to review next steps. [facility] 01-04-[address] chest (imaging has been cancelled) Keep appt schedule 02/11/24 to review next steps. Pt appeared on ED nuance search for lung nodules after CT AP 12/31/23 revealed the following: LOWER CHEST: An 8 mm nodule is present within the right middle lobe. This is unchanged since 08/08/2023. [facility]; [facility] n/a Pt is documented as never smoker Additional Risk Factors: na Planning CT low dose fu 01/06/24 will send to provider to confirm plan for fu. Pt has scheduled appt with Herberchava Ramos 02/11/24. documented in this encounter [facility] 01-03-2024 Telephone encounter Note Pt appeared on ED nuance search for lung nodules after CT AP 12/31/23 revealed the following: LOWER CHEST: An 8 mm nodule is present within the right middle lobe. This is unchanged since 08/08/2023. [facility]; Herberchava Ramos [facility] imaging n/a Pt is documented as never smoker Additional Risk Factors: na Planning CT low dose fu 01/06/24 will send to provider to confirm plan for fu. Pt has scheduled appt with Herber Richard 02/11/24. [facility] 12-29-2023 Emergency department Note Hans Larkin here for transfer back to facility. Sera Nogurea RN 12/29/[address] [facility] 12-29-2023 Emergency department Note Hans Larkin here for transfer back to facility. Sera Noguera RN 12/29/23 1009 Report from offload medic, pt assisted using using bedpan at this time. 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 Todd Damon 12/29/23 0143 EMERGENCY DEPARTMENT ENCOUNTER Pt Name: Maria Luisa Jacinto Birthdate 1965 Date of evaluation: 12/28/2023 ED Provider: Ramsey Zavaleta DO CHIEF COMPLAINT Chief Complaint Patient presents with Nausea Vomiting Pt arrived by EMS from [facility] due to N/V for 1 month. Upon [...] this timeframe. He is a resident at [facility] where his sugars are monitored regularly [...] Acquired absence of other toe(s), unspecified side ([facility]) Anxiety disorder Bipolar 1 disorder ([facility]) Blood circulation, collateral Cellulitis chronic L lower leg COVID 12/08/2021 Depression Diabetes mellitus ([facility]) Type II, on insulin Disease of blood and blood forming organ Endometrial carcinoma ([facility]) 11/25/2020 Endometrial hyperplasia Foot ulcer ([facility]) Hx of blood clots RLE prior to amputation Hyperlipidemia Hypertension Lymphedema 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, RLE Morbidly obese ([facility]) Muscle weakness Osteomyelitis ([facility]) Osteomyelitis ([facility]) 2019 RLE Other lack of coordination Other specified soft tissue disorders Other symbolic dysfunctions Schizophrenia ([facility]) Sleep apnea no CPAP Venous insufficiency SURGICAL HISTORY Past Surgical History: Procedure Laterality Date ABCESS DRAINAGE Right 09/09/2018 FOOT; ACH COLONOSCOPY 09/19/[address] Hyde DILATION AND CURETTAGE OF UTERUS 05/18/2019 HYSTEROSCOPY 12/23/2021 LEG AMPUTATION THROUGH KNEE Right 06/16/2019 UPPER GASTROINTESTINAL ENDOSCOPY N/A 06/29/2023 Dr Sergio Sibley at [facility]; no specimens WISDOM TOOTH EXTRACTION CURRENT MEDICATIONS [...] Culture. Procedure Abnormality Status --------- ------ Complete Urinalysis[[id number]] Please view results for these tests on [...] Resident 12/29/23 0416 documented in this encounter [facility] 12-29-2023 Emergency department Note Report from offload medic, pt assisted using using bedpan at this time. Awaiting squad DC back to [facility] Denise Sutherland RN 12/29/[address] 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 12-29-2023 Hospital Discharg e instructions Ramsey Zavaleta DO - 12/29/2023 3:34 AM EST Return to the ED with worsening vomiting, abdominal pain, or any other concerns. Follow-up with your PCP for reassessment. documented in this encounter [facility] 12-29-2023 Emergency department Note Pt passed PO challenge w/o difficulty. Todd Damon 12/29/[address] [facility] 12-28-2023 Miscellaneous Notes Emergency Department Encounter [facility] EMERGENCY DEPT Patient: Will Jacinto [...] for clarification.) Edwin Bustos MD Acute Care [facility] Edwin Bustos MD 12/29/23 0614 documented in this encounter [facility] 12-28-2023 Note Formatting of this n ote is different from the original. Emergency Department Encounter [facility] EMERGENCY DEPT Patient: Will Jacinto [...] for clarification.) Edwin Bustos MD Acute Care [facility] Edwin Bustos MD 12/29/23 0614 [employer] Phone: 12-28-2023 Note Formatting of this n ote is different from the original. Emergency Department Encounter [facility] EMERGENCY DEPT Patient: Will Jacinto [...] [employer] Edwin Bustos MD 12/29/23 0614 [employer] Phone: 12-28-2023 Physician Emergency department Note EMERGENCY DEPARTMENT ENCOUNTER Pt Name: Maria Luisa Jacinto Birthdate 1965 Date of evaluation: 12/28/2023 ED Provider: Ramsey Zavaleta DO CHIEF COMPLAINT Chief Complaint Patient presents with Nausea Vomiting Pt arrived by EMS from [facility] due to N/V for 1 month. Upon [...] this timeframe. He is a resident at [facility] where his sugars are monitored regularly [...] ENDOSCOPY N/A 06/29/2023 Dr Sergio Sibley at [facility]; no specimens WISDOM TOOTH EXTRACTION CURRENT MEDICATIONS [...] Culture. Procedure Abnormality Status --------- ------ Complete Urinalysis[[id number]] Please view results for these tests on [...] 0413 Ramsey Zavaleta DO Resident 12/29/[address] [facility] 12-28-2023 Telephone encounter Note Faxed recommendation to [facility]. Thank you! [facility] 12-28-2023 Miscellaneous Notes Faxed recommendation to [facility]. Thank you! Please keep doses the same thank you Images from the original note were not included. Patient's BGL documented in this encounter [facility] 12-28-2023 Telephone encounter Note Please keep doses the same thank you [facility] 12-28-2023 Telephone encounter Note Images from the original note were not included. Patient's BGL [facility] 12-23-2023 Procedure note Pt refused to finish last 2 hours of GES, only obtained intial 2 hrs of test. [facility] 12-23-2023 Procedure note Pt refused to finish last 2 hours of GES, only obtained intial 2 hrs of test. documented in this encounter [facility] 12-14-2023 Telephone encounter Note Called [facility] and was on an extended hold. I faxed over recommendation and noted for someone to give us a call to ensure they received the recommendation. Thank you! [facility] 12-14-2023 Miscellaneous Notes Called [facility] and was on an extended [...] same symptoms. Since patient is back to [facility], patient continues to have some emesis and [...] to Dr Lee. Please, advise Ninfa at [facility] of any medication changes and care advise. Phone number is [phone], ask for BEE Ocasio. Ninfa states she did fax over patient glucometer's for a week. Reason for Disposition Blood glucose > 300 mg/dL (16.7 mmol/L) AND two or more times in a row Protocols used: Diabetes - High Blood Cmoqd-MASTJ-LP documented in this encounter [facility] 12-13-2023 Telephone encounter Note Please tell staff that they can give 1/2 the usual dose of u500 insulin if the patient is not eating thank you [facility] 12-13-2023 Telephone encounter Note Images from the original note were not included. Patient's BGL is below for your review. Thank you! [facility] 12-13-2023 Telephone encounter Note S: Patient spoke with CAC nurse regarding high glucometer's and insulin dose questions B: Onset of symptoms/concern about a week A: Patient seen in ER on 12/09/2023 for same symptoms. Since patient is back to [facility], patient continues to have some [...] to Dr Lee. Please, advise Ninfa at [facility] of any medication changes and care advise. Phone number is [phone], ask for BEE Ocasio. Ninfa states she did fax over patient glucometer's for a week. Reason for Disposition Blood glucose > 300 mg/dL (16.7 mmol/L) AND two or more times in a row Protocols used: Diabetes - High Blood Sovcj-AATQN-VY [facility] 12-09-2023 Emergency department Note This nurse received report from Margaret Coleman RN 12/09/23 0728 [facility] 12-09-2023 Emergency department Note This nurse received report from Margaret Coleman RN 12/09/23 0728 ED RT Marques called for VBG. Marques states he will be down Dalila Mendes RN 12/09/23 0559 Pt presents to ED c/o nausea and vomiting and headache. EMS states several residents have COVID at facility. Pt states she vomiting 3x today. documented in this encounter [facility] 12-09-2023 Hospital Discharg e instructions Caridad Evans [...] sent through Care Everywhere.Dehydration Discharge Instructions, Adult (Israeli)Nausea and Vomiting, Adult ED (Israeli)documented in this encounter [facility] 12-09-2023 Note Sinus rhythm Abnormal R-wave progression, late transition Left ventricular hypertrophy No significant change compared to 08/17/2023 Electronically Signed On 12-09-2023 06:18:33 EST by Caridad LAZARO [employer] 12-09-2023 Note Sinus rhythm Abnormal R-wave progression, late transition Left ventricular hypertrophy No significant change compared to 08/17/2023 Electronically Signed On 12-09-2023 06:18:33 EST by Caridad LAZARO [employer] 12-09-2023 Emergency department Note ED RT Marques called for VBG. Marques states he will be down Dalila Mendes RN 12/09/[address] [facility] 12-09-2023 Emergency department Triage note Pt presents to ED c/o nausea and vomiting and headache. EMS states several residents have COVID at facility. Pt states she vomiting 3x today. [facility] 12-06-2023 Telephone encounter Note Images from the original note were not included. Patient's BGL [facility] 12-06-2023 Miscellaneous Notes Images from the original note were not included. Patient's BGL documented in this encounter [facility] 11-25-2023 Note Addended by: GERONIMO LEE on: 11/25/2023 12:06 PM Modules accepted: Orders [facility] 11-25-2023 Note Addended by: GERONIMO LEE on: 11/25/2023 12:06 PM Modules accepted: Orders [facility] 11-25-2023 Miscellaneous Notes Addended by: GERONIMO LEE [...] [facility]-25-[facility]23 Note Addended by: RADHA BUSBY on: 11/25/2023 11:59 AM Modules accepted: Orders [facility] 11-25-2023 Note Addended by: RADHA BUSBY on: 11/25/2023 11:59 AM Modules accepted: Orders [facility] 11-25-2023 Telephone encounter Note Called nursing facility and spoke with nurse Ocasio. I relayed the message and she verbalized understanding. Updated RX is pending. Thank you! [facility] 11-24-2023 Telephone encounter Note Please increase doses to 200 units with each meal thank you [facility] Work Phone: 01-17-2024 Miscellaneous Notes Please increase doses to 200 [...] included. Patient's BGL documented in this encounter [facility] 11-24-2023 Telephone encounter Note Called [facility] and spoke with nurse ochoa. She verified that patient is taking humulin R U500(250 units with breakfast/175 units with lunch and dinner [facility] 11-23-2023 Telephone encounter Note Please check on insulin doses; will need to increase thank you [facility] 11-23-2023 Telephone encounter Note Images from the original note were not included. Patient's BGL [facility] 11-17-2023 Note HNO ID: [id number] Author: ELDA REAVES PA-C Service: ? Author Type: Physician Machine I Trimmer Type: Progress Notes Filed: 11/17/2023 10:00 Note Text: CHIEF COMPLAINT: Patient presents with: Nausea AND Vomiting HPI: Resident at [facility], SNF and rehab. Will Jacinto is a [...] Never Substance Us (more content not included)... [facility] 11-09-2023 Telephone encounter Note BGL under media for review. [facility] 11-09-2023 Miscellaneous Notes BGL under media for review. Nabil is faxing over patient's bgl right now. Name of caller: Nabil Contact phone number: [phone] Relationship to Patient: [facility] Provider: Dr Lee Practice: Endocrinology Chief Complaint/Reason [...] their call: Yes documented in this encounter [facility] 11-09-2023 Telephone encounter Note Nabil is faxing over patient's bgl right now. [facility] 11-09-2023 Telephone encounter Note Name of caller: Nabil Contact phone number: [phone] Relationship to Patient: [facility] [place] Provider: Dr Lee Practice: Endocrinology Chief Complaint/Reason [...] business hours to return their call: Yes [facility] 10-27-2023 History of Presen t illness Narrative . ENDOCRINOLOGY [address] [place] [id number] Dept: [phone] Dept Visit type: Established patient Patient was [...] stated that they are currently in the [facility]. If the patient is a minor, [...] the skin daily (before lunch). 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, RLE Morbidly obese ([facility]) Muscle weakness Osteomyelitis (HCC) Osteomyelitis ([facility]) 2019 RLE Other lack of coordination Other specified soft tissue disorders Other symbolic dysfunctions Schizophrenia ([facility]) Sleep apnea no CPAP Venous insufficiency Social History Tobacco Use Smoking status: Never Smokeless tobacco: Never Substance Use Topics Alcohol use: No Past Surgical History: Procedure Laterality Date ABCESS DRAINAGE Right 09/09/2018 FOOT; [facility] COLONOSCOPY 09/19/[address] Hyde DILATION AND CURETTAGE OF UTERUS 05/18/2019 HYSTEROSCOPY 12/23/2021 LEG AMPUTATION THROUGH KNEE Right 06/16/2019 UPPER GASTROINTESTINAL ENDOSCOPY N/A 06/29/2023 Dr Sergio Sibley at [facility]; no specimens WISDOM TOOTH EXTRACTION Family History [...] Geronimo Lee MD documented in this encounter [facility] 10-16-2023 History of Presen t illness Narrative [facility] called and notified this nurse that they won't be able to pick patient up until 0200 d/t bariatric patient and requires 2 crews. Spoke with staff and [facility] and per staff will still be able to accept patient at that time. [facility] aware ok to transport patient at 0200 to [facility]. Patient updated on delay in transportation. Department of Internal Medicine Division of Endocrinology, Diabetes, & Metabolism Endocrinology Note Patient Name: Will Jacinto : 1965 AGE: 57 y.o. Room/Bed: [facility]/[address] Admission Date: 10/07/2023 Visit Date: 10/16/2023 Reason for Endocrine Consult: U-500 dosing, hypoglycemia Provider/Team Requesting Consult: [facility] PCP: Jared Guzman Outpt Sales And Marketing Assistant: Dr. Lee ASSESSMENT: Type 2 diabetes, uncontrolled, [...] and he [facility]/unresponsiveness due to poor PO intake. Type of DM: 2 Onset of DM: 1991 Home DM Medication Regimen: U-500 insulin - 285 units before breakfast/260 units before lunch/285 units before dinner , Trulicity 4.5 mg weekly DM control (last A1c/glucose data): 7.7% on current admission Resides at the [facility] Interim history: Patient was seen at bedside Good PO intake Has intermittent nausea; no vomiting or AP Drinks juice occasionally ID following - on IV Abx; has PICC No SOB or CP Plan for DC to [facility] Date/Time Value Ref Range Status 10/16/2023 11:40 [...] Units, SubCUTAneous, Daily before lunch Lactobacillus Acid-Pectin (Acidophilus/Madera Pectin) tablet 1 tablet, Oral, 2 times [...] found for: CHOLHDLRATIO No results found for: [id number] Lab Results Component Value Date TSH 2.356 [...] side (HCC) Anxiety disorder Bipolar 1 disorder ([facility]) Blood circulation, collateral Cellulitis chronic L lower leg COVID 12/08/2021 Depression Diabetes mellitus ([facility]) Type II, on insulin Disease of blood and blood forming organ Endometrial carcinoma ([facility]) 11/25/2020 Endometrial hyperplasia Foot ulcer ([facility]) Hx of blood clots RLE prior to [...] ENDOSCOPY N/A 06/29/2023 Dr Sergio Sibley at [facility]; no specimens WISDOM TOOTH EXTRACTION Allergy(ies): No [...] were not included. Hospitalist Progress Note 10/16/2023 [id number]: Please page [facility] night Hospitalist for any issues. Admit Date: 10/07/2023 PCP: Jared Guzman Room#: W4-429/[id number] A Brief hospital course: Patient admitted 10/07/2023 for hypoglycemia 2/2 insulin use with poor PO intake, hypothermia, ?sepsis. 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 Initially presented from [facility] with hypoglycemia and unresponsiveness, POC glucose 36. [...] Acquired absence of other toe(s), unspecified side ([facility]) Anxiety disorder Bipolar 1 disorder ([facility]) Blood circulation, collateral Cellulitis chronic L lower leg COVID 12/08/2021 Depression Diabetes mellitus ([facility]) Type II, on insulin Disease of blood and blood forming organ Endometrial carcinoma ([facility]) 11/25/2020 Endometrial hyperplasia Foot ulcer ([facility]) Hx of blood clots RLE prior to amputation Hyperlipidemia Hypertension Lymphedema 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, RLE Morbidly obese ([facility]) Muscle weakness Osteomyelitis (HCC) Osteomyelitis ([facility]) 2019 RLE Other lack of coordination Other specified soft tissue disorders Other symbolic dysfunctions Schizophrenia ([facility]) Sleep apnea no CPAP Venous insufficiency Objective: [...] found for: "DDIMER", "PROCAL", "COVID19", "HGBA1C", "TSH", "OSIUMTZA06", "FOLATE", "VITD25", "CHOL", "TRIG", "HDL", LDLCALC Urine [...] Nightly, JEREMY Liao CNP, 10 mg at 10/15/23 204 clotrimazole (Lotrimin) 1 % cream, , Topical, [...] 0-18 Units, 0-18 Units, SubCUTAneous, TID WC, Amriat Garcia MD, 18 Units at 10/15/23 1209 [...] mg, Oral, BID, Rachael Robertson APRN - RKANTHI, 20 mg at 10/15/232045 melatonin tablet 10 mg, 10 mg, Oral, Nightly, Rachael Robertson APRN - CLINICAL TRIALS SPECIALIST, 10 mg at 10/15/232044 metoprolol tartrate (Lopressor) [...] Oral, qAM AC, Rachael Robertson APRN - CLINICAL TRIALS SPECIALIST, 40 mg at 10/16/23 0619 polyethylene glycol (PEG) 3350 (Miralax) packet 17 g, 17 g, Oral, Daily PRN, Rachael Robertson APRN - CLINICAL TRIALS SPECIALIST polyethylene glycol (PEG) 3350 (Miralax) packet 17 g, 17 g, Oral, Daily, Rachael Robertson APRN - KRANTHI, 17 g at 10/15/23 0943 prochlorperazine (Compazine) [...] or tomorrow - [facility] - Pending the following - monitor glucose levels through dinner, bed hold no auth req'd and OPAT already sent to facility Marcio Armando MD Division of Hospitalist Medicine Inpatient Medical Services/[facility] Data: Moderate (3x CAT1 -OR- 1x CAT2 -OR- 1x CAT3) Complexity: Acute illness or injury posing a threat to life or body function (HIGH). Risk: Prescription drug/IVF/colloid was initiated, discontinued, adjusted; or reviewed with decision to maintain current orders (MOD). Estimated MDM: Medium (09325/08817) or higher Note: the above MDM determinations [...] y.o. Room/Bed: [facility]/[address] Admission Date: 10/07/2023 Visit Date: 10/15/2023 Reason for Endocrine Consult: U-500 dosing, hypoglycemia Provider/Team Requesting Consult: [facility] PCP: Jared Guzman Outpt Sales And Marketing Assistant: Dr. Lee ASSESSMENT: Type 2 diabetes, uncontrolled, [...] BF for BG 498) -- discussed with BACK DIGGER OPERATOR/RN Continue Humalog high dose scale with meals [...] and he [facility]/unresponsiveness due to poor PO intake. Type of DM: 2 Onset of DM: 1991 Home DM Medication Regimen: U-500 insulin - 285 units before breakfast/260 units before lunch/285 units before dinner , Trulicity 4.5 mg weekly DM control (last A1c/glucose data): 7.7% on current admission Resides at the [facility] Interim history: Patient was seen at bedside [...] SOB or CP Plan for DC to [facility] Date/Time Value Ref Range Status 10/15/2023 [...] before lunch/285 units before dinner Lactobacillus Acid-Pectin (Acidophilus/Madera Pectin) tablet 1 tablet, Oral, 2 times [...] found for: CHOLHDLRATIO No results found for: [id number] Lab Results Component Value Date TSH 2.356 11/26/2020 Radiology reportsas per the Radiologist Radiology: CT abdomen pelvis w contrast Result Date: 10/08/2023 [facility] 1965 [id number] Exam Date/Time: 10/08/2023 09:36 Procedure: CT ABDOMEN [...] side (HCC) Anxiety disorder Bipolar 1 disorder ([facility]) Blood circulation, collateral Cellulitis chronic L lower leg COVID 12/08/2021 Depression Diabetes mellitus ([facility]) Type II, on insulin Disease of blood and blood forming organ Endometrial carcinoma ([facility]) 11/25/2020 Endometrial hyperplasia Foot ulcer ([facility]) Hx of blood clots RLE prior to amputation Hyperlipidemia Hypertension Lymphedema MDRO (multiple drug resistant organisms) resistance hx CRE and MRSA in 2018, RLE Morbidly obese ([facility]) Muscle weakness Osteomyelitis ([facility]) Osteomyelitis ([facility]) 2019 RLE Other lack of coordination Other specified soft tissue disorders Other symbolic dysfunctions Schizophrenia ([facility]) Sleep apnea no CPAP Venous insufficiency Past Surgical History: Past Surgical History: Procedure Laterality Date ABCESS DRAINAGE Right 09/09/2018 FOOT; ACH COLONOSCOPY 09/19/[address] Hyde DILATION AND CURETTAGE OF UTERUS 05/18/2019 HYSTEROSCOPY 12/23/2021 LEG AMPUTATION THROUGH KNEE Right 06/16/2019 UPPER GASTROINTESTINAL ENDOSCOPY N/A 06/29/2023 Dr Sergio Sibley at [facility]; no specimens WISDOM TOOTH EXTRACTION Allergy(ies): No [...] were not included. Hospitalist Progress Note 10/15/[phone]: Please page [facility] Hospitalist for any issues. Admit Date: [...] bipolar type, transgender (F2M). Initially presented from [facility] with hypoglycemia and unresponsiveness, POC glucose 36. [...] side (HCC) Anxiety disorder Bipolar 1 disorder ([facility]) Blood circulation, collateral Cellulitis chronic L lower leg COVID 12/08/2021 Depression Diabetes mellitus ([facility]) Type II, on insulin Disease of blood and blood forming organ Endometrial carcinoma ([facility]) 11/25/2020 Endometrial hyperplasia Foot ulcer ([facility]) Hx of blood clots RLE prior to amputation Hyperlipidemia Hypertension Lymphedema MDRO (multiple drug resistant organisms) resistance hx CRE and MRSA in 2018, RLE Morbidly obese ([facility]) Muscle weakness Osteomyelitis (HCC) Osteomyelitis (HCC) 2019 [...] found for: "DDIMER", "PROCAL", "COVID19", "HGBA1C", "TSH", "[id number]", "FOLATE", "VITD25", "CHOL", "TRIG", "HDL", LDLCALC Urine [...] Robertson APRN - KRANTHI, 81 mg at 10/14/23 0919 atorvastatin (Lipitor) [...] Oral, qAM AC, Rachael Robertson APRN - CLINICAL TRIALS SPECIALIST, 40 mg at 10/15/23 0619 polyethylene glycol [...] - 10/16 - [facility] - Pending the following - final endo recs, bed hold no auth req'd and OPAT already sent to facility Marcio Armando MD Division of Hospitalist Medicine Inpatient Medical Services/[facility] Data: Moderate (3x CAT1 -OR- 1x CAT2 -OR- 1x CAT3) Complexity: Acute illness or injury posing a threat to life or body function (HIGH). Risk: Prescription drug/IVF/colloid was initiated, discontinued, adjusted; or reviewed with decision to maintain current orders (MOD). Estimated MDM: Medium (64644/62914) or higher Note: the above MDM determinations are made by me for my own use to estimate my end-of-day billing codes. However, documentation is reviewed by professional coders; following their review of documentation, and in accordance with current AMA CPT, CMS, and ACDIS guidelines, the actual billing code(s) may differ from my estimate. Images from the original note were not included. [facility] - Infectious Diseases Attending Progress Note [...] 26 (H) 02/09/2023 1022 CREATININE 0.98 10/14/2023 0315 CREATININE 0.86 02/09/2023 1022 GLUCOSE 250 (H) [...] be of low complexity. Mukul Coreas DO [facility] Infectious Diseases Office Tel. [phone] Nutrition Assessment Type and Reason for Visit: [...] eating 1 meal yesterday, today had 2 lithuanian yogurt parfairts and had just eaten small personal kelley pizza, ordered a grilled chicken sandwich as well, not drinking ONS frequently, PO intakes DIRECTOR OF UNDERGRADUATE ADMISSIONS poor for 4 days) Weight Loss: Unable to assess (no new/acute weight to assess) Body Fat Loss: No significant body fat loss Muscle Mass Loss: No significant muscle mass loss Fluid Accumulation: Mild Extremities, Generalized Perfume Maker Strength: Not Performed Nutrition Assessment: Pt with previously noted PMH including DM w/ gastroparesis (documented as 'brittle') & polyneuropathy, HTN, HLD, s/p R AKWarren presented initially from nursing facility due to hypoglycemia and unresponsiveness; pt was noted to have poor PO intake for at least 4 days DIRECTOR OF UNDERGRADUATE ADMISSIONS in addition to N/V, when pt was [...] limited documentation in chart to review, per consultative sales associate appears pt had 2 small yogurts this [...] is likely r/t uncontrolled DM; at facility ([facility]) pt enjoys/tolerates some meals, others do 'not [...] 152 kg (335 lb) (03/08/23 Deedee scale) Booker Body Weight (lbs) (Calculated): 130 lbs Booker Body Weight (Kg) (Calculated): 59 kg Weight Adjustment For: Amputation % Weight Adjustment: 10.1 - AKA Total Adjusted Percentage (Calculated): 10.1 Adjusted Booker Body Weight (lbs) (Calculated): 116.9 lbs Adjusted Booker Body Weight (kg) (Calculated): 53.14 kg BMI [...] Ana Reyes RD Contact: Secure chat or *[phone] Department of Internal Medicine Division of Endocrinology, Diabetes, & Metabolism Endocrinology Note Patient Name: Will Jacinto : 1965 AGE: 57 y.o. Room/Bed: [facility] A Admission Date: 10/07/2023 Visit Date: 10/14/2023 Reason for Endocrine Consult: U-500 dosing, hypoglycemia Provider/Team Requesting Consult: [facility] PCP: Jared Guzman Outpt Sales And Marketing Assistant: Dr. Lee ASSESSMENT: Type 2 diabetes with [...] and [facility]/unresponsiveness due to poor PO intake. Type of DM: 2 Onset of DM: 1991 Home DM Medication Regimen: U-500 insulin - 285 units before breakfast/260 units before lunch/285 units before dinner , Trulicity 4.5 mg weekly DM control (last A1c/glucose data): 7.7% on current admission Resides at the [facility] Interim history: Patient was seen at bedside Poor PO intake yesterday due to nausea No vomiting or AP Nausea better today Ate BF -- 2 yogurts Not drinking Ensure, mostly diet Coke Pt was off his Pure wick - urinated on the bed pad ID following - on IV Abx Plan for DC to [facility] Glucose Date/Time Value Ref Range Status 10/14/2023 [...] before lunch/285 units before dinner Lactobacillus Acid-Pectin (Acidophilus/Madera Pectin) tablet 1 tablet, Oral, 2 times [...] found for: CHOLHDLRATIO No results found for: [id number] Lab Results Component Value Date TSH 2.356 11/26/2020 Radiology reportsas per the Radiologist Radiology: CT abdomen pelvis w contrast Result Date: 10/08/2023 Patient Name: WILL JACINTO : 1965 [facility]#: [id number] Exam Date/Time: 10/08/2023 09:36 Procedure: CT ABDOMEN [...] side (HCC) Anxiety disorder Bipolar 1 disorder ([facility]) Blood circulation, collateral Cellulitis chronic L lower leg COVID 12/08/2021 Depression Diabetes mellitus ([facility]) Type II, on insulin Disease of blood and blood forming organ Endometrial carcinoma ([facility]) 11/25/2020 Endometrial hyperplasia Foot ulcer ([facility]) Hx of blood clots RLE prior to amputation Hyperlipidemia Hypertension Lymphedema MDRO (multiple drug resistant organisms) resistance hx CRE and MRSA in 2018, RLE Morbidly obese ([facility]) Muscle weakness Osteomyelitis ([facility]) Osteomyelitis ([facility]) 2019 RLE Other lack of coordination Other specified soft tissue disorders Other symbolic dysfunctions Schizophrenia ([facility]) Sleep apnea no CPAP Venous insufficiency Past Surgical History: Past Surgical History: Procedure Laterality Date ABCESS DRAINAGE Right 09/09/2018 FOOT; ACH COLONOSCOPY 09/19/[address] Hyde DILATION AND CURETTAGE OF UTERUS 05/18/2019 HYSTEROSCOPY 12/23/2021 LEG AMPUTATION THROUGH KNEE Right 06/16/2019 UPPER GASTROINTESTINAL ENDOSCOPY N/A 06/29/2023 Dr Sergio Sibley at [facility]; no specimens WISDOM TOOTH EXTRACTION Allergy(ies): No [...] were not included. Hospitalist Progress Note 10/14/2023 [phone]: Please page IMS night Hospitalist for any [...] bipolar type, transgender (F2M). Initially presented from [facility] with hypoglycemia and unresponsiveness, POC glucose 36. [...] side (HCC) Anxiety disorder Bipolar 1 disorder ([facility]) Blood circulation, collateral Cellulitis chronic L lower [...] found for: "DDIMER", "PROCAL", "COVID19", "HGBA1C", "TSH", "GLDUGRYN89", "FOLATE", "VITD25", "CHOL", "TRIG", "HDL", LDLCALC Urine [...] mg, Oral, q24h, Rachael Robertson APRN - CLINICAL TRIALS SPECIALIST, 10 mg at 10/13/23 1745 aspirin EC tablet 81 mg, 81 mg, Oral, Daily, Rachael Robertson APRN - CLINICAL TRIALS SPECIALIST, 81 mg at 10/13/23 0809 atorvastatin (Lipitor) tablet 10 mg, 10 mg, Oral, Nightly, Rachael Robertson APRN - CLINICAL TRIALS SPECIALIST, 10 mg at 10/13/23 214 clotrimazole (Lotrimin) 1 % cream, , Topical, BID, JEREMY Liao CNP, Given at 10/13/23 214 dextrose 5 % infusion, 100 mL/hr, IntraVENous, PRN, JEREMY Liao CNP, Stopped at 10/10/23 0552 dextrose 50 % solution 12.5 g, 12.5 g, IntraVENous, PRN, Rachael Robertson APRN - CLINICAL TRIALS SPECIALIST dilTIAZem CD (Cardizem CD) 24 hr capsule [...] mg, Oral, Daily, Rachael Robertson APRN - CLINICAL TRIALS SPECIALIST, 40 mg at 10/13/23 0809 gabapentin (Neurontin) capsule 100 mg, 100 mg, Oral, BID, Rachael Robertson APRN - CLINICAL TRIALS SPECIALIST, 100 mg at 10/13/23 214 glucagon (human [...] 40 mg, Oral, qAM AC, Rachael Robertson SECURITY CONTROLS ASSESSOR - CLINICAL TRIALS SPECIALIST, 40 mg at 10/14/23 0611 polyethylene glycol (PEG) 3350 (Miralax) packet 17 g, 17 g, Oral, Daily PRN, Rachael Robertson SECURITY CONTROLS ASSESSOR - CLINICAL TRIALS SPECIALIST polyethylene glycol (PEG) 3350 (Miralax) packet 17 g, 17 g, Oral, Daily, Rachael Robertson SECURITY CONTROLS ASSESSOR - CLINICAL TRIALS SPECIALIST, 17 g at 10/13/23 0809 prochlorperazine (Compazine) [...] - 10/15 - [facility] the [facility] - bed hold no auth req'd Marcio Armando MD [facility] Medical Services/[facility] Data: Moderate (3x CAT1 -OR- 1x CAT2 -OR- 1x CAT3) Complexity: Acute illness or injury posing a threat to life or body function (HIGH). Risk: Prescription drug/IVF/colloid was initiated, discontinued, adjusted; or reviewed with decision to maintain current orders (MOD). Estimated MDM: Medium (15057/92069) or higher Note: the above MDM determinations [...] SpO2 on RA, 75 HR, BG 232. ANALYSIS SPECIALIST called. 2118 vitals: 152/75, HR 75, [id number]% on RA Department of Internal Medicine Division of Endocrinology, Diabetes, & Metabolism Endocrinology Note Patient Name: Will Jacinto : 1965 AGE: 57 y.o. Room/Bed: [facility]/W4-429 A Admission Date: 10/07/2023 Visit Date: 10/13/2023 Reason for Endocrine Consult: U-500 dosing, hypoglycemia Provider/Team Requesting Consult: YUNIER PCP: Jared Guzman Outpt Sales And Marketing Assistant: Dr. Lee ASSESSMENT: Type 2 diabetes with [...] and [facility]/unresponsiveness due to poor PO intake. Type of DM: 2 Onset of DM: 1991 Home DM Medication Regimen: U-500 insulin - 285 units before breakfast/260 units before lunch/285 units before dinner , Trulicity 4.5 mg weekly DM control (last A1c/glucose data): 7.7% on current admission Resides at [facility] Interim history: Patient was seen at bedside [...] before lunch/285 units before dinner Lactobacillus Acid-Pectin (Acidophilus/Madera Pectin) tablet 1 tablet, Oral, 2 times [...] found for: CHOLHDLRATIO No results found for: [id number] Lab Results Component Value Date TSH 2.356 [...] ENDOSCOPY N/A 06/29/2023 Dr Sergio Sibley at [facility]; no specimens WISDOM TOOTH EXTRACTION Allergy(ies): No [...] were not included. Hospitalist Progress Note 10/13/2023 [phone]: Please page IMS night Hospitalist for any [...] bipolar type, transgender (F2M). Initially presented from [facility] with hypoglycemia and unresponsiveness, POC glucose 36. [...] found for: "DDIMER", "PROCAL", "COVID19", "HGBA1C", "TSH", "VUAOWAVJ90", "FOLATE", "VITD25", "CHOL", "TRIG", "HDL", LDLCALC Urine [...] Oral, q4h PRN, Rachael Robertson APRN - CLINICAL TRIALS SPECIALIST, 650 mg at 10/13/23 0117 ARIPiprazole (Abilify) tablet 10 mg, 10 mg, Oral, q24h, Rachael Robertson APRN - CLINICAL TRIALS SPECIALIST, 10 mg at 10/12/23 1726 aspirin EC tablet 81 mg, 81 mg, Oral, Daily, Rachael Robertson APRN - KRANTHI, 81 mg at 10/13/23 0809 atorvastatin (Lipitor) tablet 10 mg, 10 mg, Oral, Nightly, JEREMY Liao CNP, 10 mg at 10/12/232007 clotrimazole (Lotrimin) 1 % cream, , Topical, BID, JEREMY Liao CNP, Given at 10/13/23 0810 dextrose 5 % [...] MD Division of Hospitalist Medicine Inpatient Medical Services/[facility] Data: Moderate (3x CAT1 -OR- 1x CAT2 [...] of recurrent hypoglycemia (HIGH). Estimated MDM: High (86739/08045) Note: the above MDM determinations are made [...] y.o. Room/Bed: [facility]/[address] Admission Date: 10/07/2023 Visit Date: 10/12/2023 Reason for Endocrine Consult: U-500 dosing, hypoglycemia Provider/Team Requesting Consult: [facility] PCP: Jared Guzman Outpt Sales And Marketing Assistant: Dr. Lee ASSESSMENT: Type 2 diabetes with [...] and he [facility]/unresponsiveness due to poor PO intake. Type of DM: 2 Onset of DM: 1991 Home DM Medication Regimen: U-500 insulin - 285 units before breakfast/260 units before lunch/285 units before dinner , Trulicity 4.5 mg weekly DM control (last A1c/glucose data): 7.7% on current admission [facility] Interim history: Patient was seen at bedside [...] dulaglutide (TRULICITY) 4.5 mg, SubCUTAneous, Weekly, Every Thursday FLUoxetine (PROZAC) 40 mg, Oral, Daily gabapentin (NEURONTIN) 100 mg, Oral, 2 times daily insulin regular (HumuLIN R U-500 KWIKPEN) 500 UNIT/ML CONCENTRATED injection SubCUTAneous, 3 times daily, 285 units before breakfast/260 units before lunch/285 units before dinner Lactobacillus Acid-Pectin (Acidophilus/Madera Pectin) tablet 1 tablet, Oral, 2 times [...] found for: CHOLHDLRATIO No results found for: [id number] Lab Results Component Value Date TSH 2.356 11/26/2020 Radiology reportsas per the Radiologist Radiology: CT abdomen pelvis w contrast Result Date: 10/08/2023 [facility] 1965 [id number] Exam Date/Time: 10/08/2023 09:36 Procedure: CT ABDOMEN [...] 10/07/2023 Patient Name: [facility]ACINTO : 1965 [id number] Exam Date/Time: 10/07/2023 07:31 Procedure: XR CHEST [...] 10/07/2023 Patient Name: WILL JACINTO : 1965 [facility]#: [id number] Exam Date/Time: 10/07/2023 07:29 Procedure: CT HEAD [...] side (HCC) Anxiety disorder Bipolar 1 disorder ([facility]) Blood circulation, collateral Cellulitis chronic L lower leg COVID 12/08/2021 Depression Diabetes mellitus ([facility]) Type II, on insulin Disease of blood and blood forming organ Endometrial carcinoma ([facility]) 11/25/2020 Endometrial hyperplasia Foot ulcer ([facility]) Hx of blood clots RLE prior to amputation Hyperlipidemia Hypertension Lymphedema MDRO (multiple drug resistant organisms) resistance hx CRE and MRSA in 2018, RLE Morbidly obese ([facility]) Muscle weakness Osteomyelitis ([facility]) Osteomyelitis (HCC) 2018 RLE Other lack of [...] ENDOSCOPY N/A 06/29/2023 Dr Sergio Sibley at [facility]; no specimens WISDOM TOOTH EXTRACTION Allergy(ies): No [...] from the original note were not included. [facility] - Infectious Diseases Attending Progress Note Subjective- Following for BSI d/t Acinetobacter lwoffii. Pt resting comfortably in bed. States that abdominal pain has improved. Tolerating regular diet. Denies F/C. PICC line has been placed. Interval Events- Pt is afebrile. WBC WNL at 7.4. Hyperglycemic today at 401. Planning to complete IV course w/ ertapenem via PICC. Plan is to return to [facility] when medically stable. Objective- Vitals- Patient [...] be of moderate complexity. Mukul Coreas DO [facility] Infectious Diseases Office Tel. [phone] Images from the original note were not included. Hospitalist Progress Note 10/12/2023 [phone]: Please page IMS night Hospitalist for any [...] bipolar type, transgender (F2M). Initially presented from [facility] with hypoglycemia and unresponsiveness, POC glucose 36. [...] Acquired absence of other toe(s), unspecified side ([facility]) Anxiety disorder Bipolar 1 disorder ([facility]) Blood circulation, collateral Cellulitis chronic L lower leg COVID 12/08/2021 Depression Diabetes mellitus ([facility]) Type II, on insulin Disease of blood and blood forming organ Endometrial carcinoma ([facility]) 11/25/2020 Endometrial hyperplasia Foot ulcer ([facility]) Hx of blood clots RLE prior to amputation Hyperlipidemia Hypertension Lymphedema MDRO (multiple drug resistant organisms) resistance hx CRE and MRSA in 2018, RLE Morbidly obese ([facility]) Muscle weakness Osteomyelitis ([facility]) Osteomyelitis ([facility]) 2019 RLE Other lack of coordination Other specified soft tissue disorders Other symbolic dysfunctions Schizophrenia ([facility]) Sleep apnea no CPAP Venous insufficiency Objective: [...] found for: "DDIMER", "PROCAL", "COVID19", "HGBA1C", "TSH", "IYPSYNVM16", "FOLATE", "VITD25", "CHOL", "TRIG", "HDL", LDLCALC Urine [...] sodium chloride 0.9 % 100 mL IVPB (Add-Athens), 3,000 mg, IntraVENous, q6h, Skylar Larkin PA-C, [...] BID, JEREMY Liao CNP, 25 mg at 10/11/23 2019 ondansetron (Zofran) tablet 4 mg, 4 mg, Oral, q6h PRN, Rachael Robertson APRN - CLINICAL TRIALS SPECIALIST, 4 mg at 10/11/23 204 pantoprazole (ProtoNix) EC tablet 40 mg, 40 mg, Oral, qAM AC, Rachael Robertson SECURITY CONTROLS ASSESSOR - CLINICAL TRIALS SPECIALIST, 40 mg at 10/12/23 0550 polyethylene glycol (PEG) 3350 (Miralax) packet 17 g, 17 g, Oral, Daily PRN, Rachael Robertson SECURITY CONTROLS ASSESSOR - CLINICAL TRIALS SPECIALIST polyethylene glycol (PEG) 3350 (Miralax) packet 17 g, 17 g, Oral, Daily, Rachael Robertson SECURITY CONTROLS ASSESSOR - CLINICAL TRIALS SPECIALIST, 17 g at 10/08/23 1042 prochlorperazine (Compazine) [...] endocrine recs Marcio Armando MD [facility] Medicine Inpatient Medical Services/[facility] Data: Extensive (Two out of three: 3x CAT1, 1x CAT2, 1x CAT3) Complexity: Acute illness or injury posing a threat to life or body function (HIGH). Risk: Prescription drug/IVF/colloid was initiated, discontinued, adjusted; or reviewed with decision to maintain current orders (MOD). Use/consideration of a therapy requiring intensive monitoring (HIGH). Estimated MDM: High (07622/15358) Note: the above MDM determinations are made [...] loss Fluid Accumulation: No significant fluid accumulation Perfume Maker Strength: Not Performed Nutrition Assessment: Patient is a 57-year-old transgender male with history of type 2 diabetes, hypertension, hyperlipidemia, diabetic polyneuropathy, s/p right AKA and he [facility] the [facility] for [facility]/unresponsiveness. Per notes patient has had poor p.o. intake for the last 4 days in addition to nausea and vomiting. However it appears that he was noted to be unresponsive and was found to have a blood glucose of 36 in the [facility]. Patient had received 260 units of U-500 [...] Stated he was drinking "health shakes" at [facility] DIRECTOR OF UNDERGRADUATE ADMISSIONS. Patient requesting to have Ensure HP 3x/day. [...] (kg): 53 kg Total Energy Requirements (kcals/day): 9217-0543 (30-35) Weight Used for Protein Requirements: Adjusted [...] 152 kg (335 lb) (03/08/23 Deedee scale) Booker Body Weight (lbs) (Calculated): 130 lbs Booker Body Weight (Kg) (Calculated): 59 kg Weight Adjustment For: Amputation % Weight Adjustment: 10.1 - AKA Total Adjusted Percentage (Calculated): 10.1 Adjusted Booker Body Weight (lbs) (Calculated): 116.9 lbs Adjusted Booker Body Weight (kg) (Calculated): 53.14 kg BMI [...] Planning: Continue current diet Marcela Escamilla, MS RD LD Contact: epic chat or [phone] Images from the original note were not included. [facility] - Infectious Diseases Attending Progress Note [...] IV ampicillin/sulbactam. Plan is to return to [facility] when medically stable. Objective- Vitals- [...] be of moderate complexity. Mukul Coreas DO [facility] Infectious Diseases Office Tel. [phone] Department of Internal Medicine Division of Endocrinology, Diabetes, & Metabolism Endocrinology Note Patient Name: Will Jacinto : 1965 AGE: 57 y.o. Room/Bed: [facility] A Admission Date: 10/07/2023 Visit Date: 10/11/2023 Reason for Endocrine Consult: U-500 dosing, hypoglycemia Provider/Team Requesting Consult: YUNIER PCP: Jared Guzman Outpt Sales And Marketing Assistant: Dr. Lee ASSESSMENT: Type 2 diabetes with [...] and he presented [facility] the hospital [facility] for [facility]/unresponsiveness. Patient had received 260 units [...] before lunch/285 units before dinner Lactobacillus Acid-Pectin (Acidophilus/Madera Pectin) tablet 1 tablet, Oral, 2 times [...] found for: CHOLHDLRATIO No results found for: [id number] Lab Results Component Value Date TSH 2.356 [...] 10/07/2023 [facility] 1965 [id number] Exam Date/Time: 10/07/2023 07:29 Procedure: CT HEAD [...] and MRSA in 2018, RLE Morbidly obese ([facility]) Muscle weakness Osteomyelitis (HCC) Osteomyelitis (HCC) 2019 RLE Other lack of coordination Other specified soft tissue disorders Other symbolic dysfunctions Schizophrenia ([facility]) Sleep apnea no CPAP Venous insufficiency Past Surgical History: Past Surgical History: Procedure Laterality Date ABCESS DRAINAGE Right 09/09/2018 FOOT; [facility]CH COLONOSCOPY 09/19/[address] Hyde DILATION AND CURETTAGE OF UTERUS 05/18/2019 HYSTEROSCOPY 12/23/2021 LEG AMPUTATION THROUGH KNEE Right 06/16/2019 UPPER GASTROINTESTINAL ENDOSCOPY N/A 06/29/2023 Dr Sergio Sibley at [facility]; no specimens WISDOM TOOTH EXTRACTION Allergy(ies): No [...] were not included. Hospitalist Progress Note 10/11/2023 [phone]: Please page IMS night Hospitalist for any [...] bipolar type, transgender (F2M). Initially presented from [facility] with hypoglycemia and unresponsiveness, POC glucose 36. [...] sodium chloride 0.9 % 100 mL IVPB (Add-Athens), 3,000 mg, IntraVENous, q6h, Skylar Larkin PA-C, [...] injection 25 Units, 25 Units, SubCUTAneous, TID WC, Amrita Garcia MD insulin NPH (Isophane) (HumuLIN [...] APRN - KRANTHI, 10 mg at 10/10/232042 metoprolol tartrate (Lopressor) tablet 25 mg, 25 mg, Oral, BID, Rachael Robertson APRN - KRANTHI, 25 mg at 10/10/232042 ondansetron (Zofran) tablet 4 mg, 4 mg, Oral, q6h PRN, Rachael Robertson APRN - CLINICAL TRIALS SPECIALIST, 4 mg at 10/10/23 204 pantoprazole (ProtoNix) EC tablet 40 mg, 40 mg, Oral, qAM AC, Rachael Robertson APRN - CLINICAL TRIALS SPECIALIST, 40 mg at 10/11/23 0614 polyethylene glycol (PEG) 3350 (Miralax) packet 17 g, 17 g, Oral, Daily PRN, Rachael Robertson APRN - KRANTHI polyethylene glycol (PEG) 3350 (Miralax) packet 17 g, 17 g, Oral, Daily, Rachael Robertson APRN - CLINICAL TRIALS SPECIALIST, 17 g at 10/08/23 1042 prochlorperazine (Compazine) [...] MD Division of Hospitalist Medicine Inpatient Medical Services/[facility] Data: Moderate (3x CAT1 -OR- 1x CAT2 -OR- 1x CAT3) Complexity: Acute illness or injury posing a threat to life or body function (HIGH). Risk: Use/consideration of therapy requiring intensive monitoring: parenteral cardioactive electrolyte repletion, ex: calcium gluconate, magnesium, potassium (rapid hypotension, arrhythmias or arrest); telemetry, BMP (HIGH). Estimated MDM: High (98283/97457) Note: the above MDM determinations are made by me for my own use to estimate my end-of-day billing codes. However, documentation is reviewed by professional coders; following their review of documentation, and in accordance with current AMA CPT, CMS, and ACDIS guidelines, the actual billing code(s) may differ from my estimate. [facility] Respiratory Care Department Progress Note Comment [...] from the original note were not included. [facility] - Infectious Diseases Advanced Practice [...] Tray (Disposables); 5 carb choices (75 gm/meal) @[id number]@ 24HR INTAKE/OUTPUT: Intake/Output Summary (Last 24 hours) [...] 10/10/2023 Division of Hospitalist Medicine Inpatient Medical Services/[facility] PAGER: [phone] Department of Internal Medicine Division of Endocrinology, Diabetes, & Metabolism Endocrinology Note Patient Name: Will Jacinto : 1965 AGE: 57 y.o. Room/Bed: [facility] A Admission Date: 10/07/2023 Visit Date: 10/10/2023 Reason for Endocrine Consult: U-500 dosing, hypoglycemia Provider/Team Requesting Consult: IMS PCP: Jared Guzman Outpt Sales And Marketing Assistant: Dr. Lee ASSESSMENT: Type 2 diabetes with [...] and he [facility] for [facility]/unresponsiveness. Patient had received 260 units [...] before lunch/285 units before dinner Lactobacillus Acid-Pectin (Acidophilus/Madera Pectin) tablet 1 tablet, Oral, 2 times [...] found for: CHOLHDLRATIO No results found for: [id number] Lab Results Component Value Date TSH 2.356 [...] soft tissue disorders Other symbolic dysfunctions Schizophrenia ([facility]) Sleep apnea no CPAP Venous insufficiency Past Surgical History: Past Surgical History: Procedure Laterality Date ABCESS DRAINAGE Right 09/09/2018 FOOT; ACH COLONOSCOPY 09/19/[address] Hyde DILATION AND CURETTAGE OF UTERUS 05/18/2019 HYSTEROSCOPY 12/23/2021 LEG AMPUTATION THROUGH KNEE Right 06/16/2019 UPPER GASTROINTESTINAL ENDOSCOPY N/A 06/29/2023 Dr Sergio Sibley at [facility]; no specimens WISDOM TOOTH EXTRACTION Allergy(ies): No [...] on the date of this note. [facility] Respiratory Care Department Progress Note Comment [...] 10/07/2023 PCP: Jared Guzman Room#: [id number] A Interval History: PT reports nausea, vomiting improved, no diarrhea, abd pain improved since admission, LLE erythema has been present for many years, no pain in his LLE. Pt appears more sleepy today, but answering questions appropriately, no other complaints. Adult diet Full liquid; Isolation Tray (Disposables); 5 carb choices (75 gm/meal) @[id number]@ 24HR INTAKE/OUTPUT: Intake/Output Summary (Last 24 hours) [...] side (HCC) Anxiety disorder Bipolar 1 disorder ([facility]) Blood circulation, collateral Cellulitis chronic L lower leg COVID 12/08/2021 Depression Diabetes mellitus ([facility]) Type II, on insulin Disease of blood and blood forming organ Endometrial carcinoma ([facility]) 11/25/2020 Endometrial hyperplasia Foot ulcer ([facility]) Hx of blood clots RLE prior to amputation Hyperlipidemia Hypertension Lymphedema MDRO (multiple drug resistant organisms) resistance hx CRE and MRSA in 2018, RLE Morbidly obese ([facility]) Muscle weakness Osteomyelitis (HCC) Osteomyelitis (HCC) 2019 RLE Other lack of coordination Other specified soft tissue disorders Other symbolic dysfunctions Schizophrenia ([facility]) Sleep apnea no CPAP Venous insufficiency LABS: [...] : Mayda Olmstead MD 10/09/2023 [facility] Medical Services/[facility] PAGER: [phone] Vancomycin therapy has been discontinued by Skylar Larkin PA-C on 10/09/23. Thank you for the consult. Pharmacy signing off for vancomycin dosing. Thais Esqueda RPh, PharmD Date: 10/09/23 Time: 11:39 AM Department of Internal Medicine Division of Endocrinology, Diabetes, & Metabolism Endocrinology Note Patient Name: Will Jacinto : 1965 AGE: 57 y.o. Room/Bed: [facility] A Admission Date: 10/07/2023 Visit Date: 10/09/2023 Reason for Endocrine Consult: U-500 dosing, hypoglycemia Provider/Team Requesting Consult: [facility] PCP: Jared Guzman Outpt Sales And Marketing Assistant: Dr. Lee ASSESSMENT: Type 2 diabetes with [...] and he presented [facility] the [facility] for [facility]/unresponsiveness. Patient had received 260 units [...] before lunch/285 units before dinner Lactobacillus Acid-Pectin (Acidophilus/Madera Pectin) tablet 1 tablet, Oral, 2 times [...] found for: CHOLHDLRATIO No results found for: [id number] Lab Results Component Value Date TSH 2.356 [...] Report Dictated on Electronically Signed By: Angel Ranhdawa MD Electronically Signed Date/Time: 10/07/2023 7:51 AM [...] ENDOSCOPY N/A 06/29/2023 Dr Sergio Sibley at [facility]; no specimens WISDOM TOOTH EXTRACTION Allergy(ies): No [...] Date: 10/09/23 Room:[facility] A Patient Name: Will Jacinto Allergies: [...] Entered doses and random Vancomycin level into [facility]. Current dosing regimen is Vancomycin 1500 milligrams Q 12 hours has predicted AUC of 526 mg/L*hr. Continue current dosing regimen. Will obtain random Vancomycin level with morning labs on or before 10/16/23. Will continue to follow renal function closely. Please page/call with questions. Date: 10/09/23 Time: 7:20 AM Name: Thais Esqueda RPh, PharmD Phone: [phone] Images from the original note were not included. Hospitalist Progress Note Subjective: Admit Date: 10/07/2023 PCP: Jared Guzman Room#: [id number] A Interval History: PT reports nausea, vomiting improved, no diarrhea, abd pain improved since admission, LLE erythema has been present for many years, no pain in his LLE. no other complaints. Adult diet Full liquid; 5 carb choices (75 gm/meal) @[id number]@ 24HR INTAKE/OUTPUT: Intake/Output Summary (Last 24 hours) [...] soft tissue disorders Other symbolic dysfunctions Schizophrenia ([facility]) Sleep apnea no CPAP Venous insufficiency LABS: [...] 10/08/2023 Division of Hospitalist Medicine Inpatient Medical Services/[facility] PAGER: [phone] Pharmacy Managed Vancomycin Dosing Service Consult Note [...] AM Ezio Orr PharmD Available via Secure Chat/Explorys documented in this encounter [facility] 10-16-2023 Nurse Note Report called to [facility]. Nursing aware of transport time [...] for admit orders. documented in this encounter [facility] 10-16-2023 Hospital course Narrative Images from the [...] Gram-negative bacteria Sepsis without acute organ dysfunction ([facility]) Diabetic gastroparesis associated with type 2 diabetes mellitus ([facility]) ([facility]) Type 2 diabetes mellitus with hyperglycemia, with long-term current use of insulin ([facility]) Class 3 severe obesity due to excess calories with serious comorbidity and body mass index (BMI) of 60.0 to 69.9 in adult ([facility]) HOSPITAL COURSE: Patient admitted 10/07/2023 for hypoglycemia 2/2 insulin use with poor PO intake, hypothermia, ?sepsis. 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 Initially presented from [facility] with hypoglycemia and unresponsiveness, POC glucose 36. [...] 325 MG tablet Commonly known as: Tylenol Acidophilus/Madera Pectin tablet ARIPiprazole 10 MG tablet Commonly [...] DISPOSITION: Skilled Facility FACILITY/HOME CARE AGENCY NAME: [facility] DISCHARGE TIME: 40 minutes SIGNED: Marcio Armando MD 10/16/2023, 5:31 PM See today's progress note for physical exam. documented in this encounter [facility] 10-16-2023 Miscellaneous Notes Discharge med list transmitted to [facility] via [facility] per TCC request. Discharge order is in place, but contingent upon what pt's blood sugar will be at dinner. Tasked LIQUOR STORES AND AGENCIES SUPERVISOR to send discharge paperwork to [facility]. Spoke with BEE Herron at the facility to inform her of probable discharge at 6:30. TCC made BACK DIGGER OPERATOR aware the DC may be cancelled depending on his blood sugars tonight with dinner. BACK DIGGER OPERATOR verbalized understanding. Pt also made aware of probable dc back to facility tonight. TCC to follow and assist as needed. MAR and updated notes placed to [facility] via [facility] per TCC request. Await review and response regarding ability to accept. TCC notified. TCC informed that pt can go back to [facility] as long as blood sugar is acceptable after dinner. Was asked to arrange transportation, under the assumption that pt will be discharged. Transportation set for 6:30 with [employer]. Transportation form on chart. Pt is LTC LOC and does not need 7000 or auth. Tasked LIQUOR STORES AND AGENCIES SUPERVISOR to send MAR to facility. Once the [...] Glucose 528. Endocrine continues to follow. DCP: [facility] when clinically stable. TCC to [...] 8 GMLOS: 5.1 [facility] TCC request. Images from the original note were not included. Care Management Progress Note Pt remains on 4W. Positive blood cultures. PICC. Invanz Q24h until 10/21. Order in Media. Endocrine following, adjusting insulin improved to 250 this morning. DCP: [facility] when clinically stable. TCC to follow. [...] with further issues IV ABX/COPAT placed to [facility] - [facility] via [facility] per TCC request. Images from the original note were not included. Care Management Progress Note Pt remains on 4W. Positive blood cultures. PICC. Invanz Q24h until 10/21. Order in Media. Na 129. Endocrine following, adjusting insulin. DCP: [facility]. TCC to follow. Discharge Milestones [...] Endo, ID following. DC plan: return to [facility] when clinically stable. Bed hold, [...] Infectious Disease following. Plan is return to [facility] when medically stable. Bed hold [...] placed to [facility] via [facility] per TCC request. Await review and response regarding ability to accept. TCC notified. Care Managment Initial Assessment Date: 10/08/2023 Patient Name: Will Jacinto : 1965 Patient Information Source of Information: Patient Cognition/Language: Impaired Permission given to speak with patient patient access representative/caregiver as indicated: Confirmation of Payer with patient/family: Payer Name: [facility] Brogue: No Confirmation of Primary Care Physician: Primary Caregiver: If assistance needed, confirmed caregiver ready, willing and able to care for patient at discharge: Yes Confirmed with: Living Arrangements Current Residence: Number of Floors Number of Entry Steps: Bed/Bath Levels: Facility: [facility] Facility Name: [facility] Plan to Return: Yes Lives [...] Plan Patient expects to be discharged to: [facility]. Discharge Planning Actions: Patient's Choice Rights and [employer] and Collaborative Relationships Disclosed as Indicated for Post-Acute Care: Interdisciplinary Team Engagement: Social Work Referral for: Additional Information: [place] per patient. Lives at [facility]. Plan is return at discharge. Referral in [facility]. Demetria Robertson RN Problem: Safety - [...] include monitor bglucose. documented in this encounter [facility] 10-13-2023 Hospital Discharg e instructions Gricelda Harding [...] Contact Information Primary Emergency Contact: Jovana Quesada (KARINA) Relation: Relative Secondary Emergency Contact: Carola Lubin Mobile Relation: Other Past Surgical History: Past Surgical History: Procedure Laterality Date ABCESS DRAINAGE Right 09/09/2018 FOOT; [facility] COLONOSCOPY 09/19/[address] Hyde DILATION AND CURETTAGE OF UTERUS 05/18/2019 HYSTEROSCOPY 12/23/2021 LEG AMPUTATION THROUGH KNEE Right 06/16/2019 UPPER GASTROINTESTINAL ENDOSCOPY N/A 06/29/2023 Dr Sergio Sibley at [facility]; no specimens WISDOM TOOTH EXTRACTION Immunization History: Immunization History Administered Date(s) Administered Covid-19, Pfizer [facility], Do Not Dilute, (Age 12 Y+), Im, L 02/26/2022 Influenza, injectable, quadrivalent, preservative free 01/14/2019, 08/12/2021 [place] SARS-CoV-2 Vaccination 11/13/2020, 12/04/2020, 08/28/2021 Active Problems: Medical Problems Problem List * (Principal) Hypoglycemia Hypertension Chest pain Chest pain, unspecified type Upper abdominal pain Abdominal pain Endometrial carcinoma (HCC) Endometrial hyperplasia Diabetic hyperosmolar non-ketotic state (CMS/HCC) ([facility]) Thickened endometrium Ileus (CMS/HCC) (HCC) Complex endometrial hyperplasia with atypia Diabetic gastroparesis associated with type 2 diabetes mellitus ([facility]/H[facility]) ([facility]) Esophagitis Nausea and vomiting Hyperlipidemia Cellulitis and abscess of lower extremity Chronic acquired lymphedema Cellulitis Hyperandrogenism Uncontrolled type 2 diabetes mellitus with complication Chronic osteomyelitis ([facility]) ([facility]) 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 ([facility]) Class 3 severe obesity due to excess calories with serious comorbidity and body mass index (BMI) of 50.0 to 59.9 in adult ([facility]) Type 2 diabetes mellitus with hyperglycemia, with long-term current use of insulin ([facility]) Hyperglycemia Post-menopausal bleeding Morbid obesity ([facility]) Left leg cellulitis Diabetic foot infection S/P AKA (above knee amputation) unilateral, right ([facility]) Class 3 severe obesity due to excess calories with serious comorbidity and body mass index (BMI) of 60.0 to 69.9 in adult ([facility]) Isolation/Infection: Contact MRSA, MDRO Nurse Assessment: Last [...] assistance Toileting Total assistance Feeding Minimal assistance Lighting Director Minimal assistance Med Delivery yes Wound Care [...] Score: @READMISSIONRISKDETAILS@ Discharging to Facility/ Agency Name: [facility] Address: [address] [place] [address] Dialysis Facility (if applicable) Name: Address: Dialysis Schedule: Phone: Fax: Car Servicer/Cut Off Machine Unloader signature: ICIAN SECTION Prognosis: good Condition at [...] the diagnosis listed and that he requires group home facility for greater than 30 days. Update Admission H&P: No change in H&P PHYSICIAN SIGNATURE: documented in this encounter [facility] 10-12-2023 Procedure note Associated Ord er(s): PICC [...] lumen Catheter size: 5 Fr Lot #: [id number] Trimmed at (cm): 41 Inserted at (cm): 41 Ultrasound guidance: Yes Post-procedure: Post-procedure: Antimicrobial dressing applied and securement device Description/Findings: Flushes easily and blood returned Estimated blood loss: < 5 mL Specify complication(s): No apparent complications Follow-up chest x-ray: Ordered General Comments: Infiltrated PIV site right AC, tender red IV right wrist documented in this encounter [facility] 10-09-2023 Consult note Associated Order (s): IP CONSULT TO INFECTIOUS DISEASES Images from the original note were not included. [facility] Medical [facility] - Infectious Diseases Advanced Practice [...] was found unresponsive and diaphoretic in the radiologic technologist chief; POC glucose 36. He was given 2 [...] lower leg COVID 12/08/2021 Depression Diabetes mellitus ([facility]) Type II, on insulin Disease of blood [...] ENDOSCOPY N/A 06/29/2023 Dr Sergio Sibley at [facility]; no specimens WISDOM TOOTH EXTRACTION Current Medications: Current Facility-Administered Medications Medication Dose Route Frequency Provider Last Rate Last Admin acetaminophen (Tylenol) tablet 650 mg 650 mg Oral q4h PRN JEREMY Liao CNP 650 mg at 10/08/23 0554 ARIPiprazole (Abilify) tablet 10 mg 10 mg Oral q24h JEREMY Liao CNP 10 mg at 10/08/23 1639 aspirin EC tablet 81 mg 81 mg Oral Daily JEREMY Liao CNP 81 mg at 10/09/23 0855 atorvastatin (Lipitor) tablet 10 mg 10 mg Oral Nightly JEREMY Liao CNP 10 mg at 10/08/23 2308 clotrimazole (Lotrimin) [...] mg Oral BID Rachael Robertson APRN - CLINICAL TRIALS SPECIALIST 25 mg at 10/09/23 0855 ondansetron (Zofran) tablet 4 mg 4 mg Oral q6h PRN Rachael Robertson APRN - KRANTHI 4 mg at 10/08/23 2044 pantoprazole (ProtoNix) EC tablet 40 mg 40 mg Oral qAM AC Rachael Robertson APRN - CLINICAL TRIALS SPECIALIST 40 mg at 10/09/23 0654 piperacillin-tazobactam (Zosyn) IVPB 3,375 mg 3,375 mg IntraVENous q8h Rachael Robertson APRN - KRANTHI Stopped at 10/09/23 0645 polyethylene glycol (PEG) 3350 (Miralax) packet 17 g 17 g Oral Daily PRN Rachaeljenny Robertson, SECURITY CONTROLS ASSESSOR - CLINICAL TRIALS SPECIALIST polyethylene glycol (PEG) 3350 (Miralax) packet 17 g 17 g Oral Daily Rachael Robertson, SECURITY CONTROLS ASSESSOR - CLINICAL TRIALS SPECIALIST 17 g at 10/08/23 1042 vancomycin (Vancocin) 1500 mg in NS 250 mL IVPB (compounded premix) 1,500 mg IntraVENous q12h Rachael Robertson, SECURITY CONTROLS ASSESSOR - CLINICAL TRIALS SPECIALIST 125 mL/hr at 10/09/23 0656 1,500 mg [...] y.o. Room/Bed: [facility] A Admission Date: 10/07/2023 Visit Date: 10/08/2023 Reason for Endocrine Consult: U-500 dosing, hypoglycemia Provider/Team Requesting Consult: [facility] PCP: Jared Guzman Outpt Sales And Marketing Assistant: Dr. Lee ASSESSMENT: Type 2 diabetes with [...] and he [facility] for hypogly[facility]/unresponsiveness. Per notes patient has had [...] a blood glucose of 36 in the [facility]. Patient had received 260 units of U-500 [...] before lunch/285 units before dinner Lactobacillus Acid-Pectin (Acidophilus/Madera Pectin) tablet 1 tablet, Oral, 2 times [...] found for: CHOLHDLRATIO No results found for: [id number] Lab Results Component Value Date TSH 2.356 [...] 10/07/2023 Patient Name: WILL JACINTO : 1965 [facility]#: [id number] Exam Date/Time: 10/07/2023 07:31 Procedure: XR CHEST [...] 10/07/2023 [facility] Name: [facility] : 1965 [id number] Exam Date/Time: 10/07/2023 07:29 Procedure: CT HEAD [...] ENDOSCOPY N/A 06/29/2023 Dr Sergio Sibley at [facility]; no specimens WISDOM TOOTH EXTRACTION Allergy(ies): No [...] Robertson CNP Room:[facility] A Patient Name: Will Jacinto Allergies: Patient [...] via Secure Chat documented in this encounter [facility] 10-07-2023 History and physical note Images from [...] who presents to the emergency department from [facility] for hypoglycemia/unresponsiveness. Staff nurse at facility provided [...] intake for dinner at 5p (?some soup). Tempi-fd-qsxr glucose last night was 116 and he was given 3 glasses of apple juice prior to bed. Found unresponsive and diaphoretic at 0445 this a.m. Wtlxh-me-whgt glucose 36 at that time. Given 2 doses of glucagon which improved his qhcax-qx-utnw glucose to 61. 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, RLE Morbidly obese ([facility]) Muscle weakness Osteomyelitis (HCC) Osteomyelitis ([facility]) 2019 RLE Other lack of coordination Other specified soft tissue disorders Other symbolic dysfunctions Schizophrenia ([facility]) Sleep apnea no CPAP Venous insufficiency Past Surgical History: Past Surgical History: Procedure Laterality Date ABCESS DRAINAGE Right 09/09/2018 FOOT; [facility] COLONOSCOPY 09/19/[address] Hyde DILATION AND CURETTAGE OF UTERUS 05/18/2019 HYSTEROSCOPY 12/23/2021 LEG AMPUTATION THROUGH KNEE Right 06/16/2019 UPPER GASTROINTESTINAL ENDOSCOPY N/A 06/29/2023 Dr Sergio Sibley at [facility]; no specimens WISDOM TOOTH EXTRACTION Social History: [...] before lunch/285 units before dinner Lactobacillus Acid-Pectin (Acidophilus/Madera Pectin) tablet Take 1 tablet by mouth [...] Mobile Relation: Other Rachael Robertson APRN - [facility] Division of Hospitalist Medicine Inpatient Medical Services/[facility] Associated attestation - Carly Nino MD - 10/08/2023 6:08 PM EST I have reviewed the case with the PA/RESEARCH ASSOCIATE PROFESSOR. I agree with the current plan of [...] performed. Rounding Hospitalist documented in this encounter [facility] 10-07-2023 Emergency department Note [facility] arrived for transport. Hand off report given to medics. Breonna Palmer RN 10/07/23 2874 Phoned [facility] 4W. Hand off report given to PASTORA Martínez. Breonna Palmer RN 10/07/23 1444 Patient given orange juice. Breonna Palmer RN 10/07/23 1423 Phoned PASTORA Ochoa at [facility] and gave update that patient is to be admitted to [facility] and is currently in stable [...] this time. Breonna Palmer RN 10/07/23 0952 Jeanerette warmer removed from patient. Oral temp 97.5 F. Physician informed. Breonna Palmer RN 10/07/23 0923 Return call from ICU, Dr Tinajero. Diane [...] who presents to the emergency department from [facility] for hypoglycemia/unresponsiveness. Spoke to Juliane, nurse taking care of him overnight, who reports he was last seen well at 0400 this morning when he asked director of nursing to turn on fan [...] intake for dinner at 5p (?some soup). Xzuww-nh-rnjd glucose last night was 116 and he was given 3 glasses of apple juice prior to bed. Found unresponsive and diaphoretic at 0445. Xpizo-ak-yajd glucose 36 at that time. Given 2 doses of glucagon which improved his zjcpr-zi-tstf glucose to 61. Glucose was 90 upon EMS arrival. EMS gave nothing in transport. Repeat avqou-kq-hjtj glucose 68 here. Juliane reports that mentation [...] side (HCC) Anxiety disorder Bipolar 1 disorder ([facility]) Blood circulation, collateral Cellulitis chronic L lower leg COVID 12/08/2021 Depression Diabetes mellitus ([facility]) Type II, on insulin Disease of blood [...] soft tissue disorders Other symbolic dysfunctions Schizophrenia ([facility]) Sleep apnea no CPAP Venous insufficiency SURGICAL HISTORY Past Surgical History: Procedure Laterality Date ABCESS DRAINAGE Right 09/09/2018 FOOT; [facility] COLONOSCOPY 09/19/[address] Hyde DILATION AND CURETTAGE OF UTERUS 05/18/2019 HYSTEROSCOPY 12/23/2021 LEG AMPUTATION THROUGH KNEE Right 06/16/2019 UPPER GASTROINTESTINAL ENDOSCOPY N/A 06/29/2023 Dr Sergio Sibley at [facility]; no specimens WISDOM TOOTH EXTRACTION CURRENT MEDICATIONS [...] Abnormal Glucose 68 (*) Narrative: Performed by: [facility], [address] [place] [address] CLIA ID: [id number] LACTIC ACID WITH REFLEX - Normal LACTIC ACID 1.2 POCT GLUCOSE METER UNSOLICITED RESULTS - Normal Glucose 100 Narrative: Performed by: [facility], [address] [place] [address] CLIA ID: [id number] BLOOD CULTURE URINE CULTURE RESPIRATORY PATHOGENS PANEL BY PCR BLOOD CULTURE COMPLETE URINALYSIS WITH REFLEX TO CULTURE Narrative: The following orders were created for panel order Urinalysis Complete with reflex to Culture. Procedure Abnormality Status --------- ------ Complete Urinalysis[[id number]] Please view results for these tests on [...] who presents to the emergency department from [facility] for hypoglycemia/unresponsiveness. Spoke to Juliane, nurse taking care of him overnight, who reports he was last seen well at 0400 this morning when he asked director of nursing to turn on fan because he felt warm. Entirety of HPI obtained from transporting EMS staff and [facility] staff due to patient unresponsiveness. Juliane reports [...] intake for dinner at 5p (?some soup). Aicah-nw-tkuj glucose last night was 116 and he was given 3 glasses of apple juice prior to bed. Found unresponsive and diaphoretic at 0445. Nnvrk-wv-ogsu glucose 36 at that time. Given 2 doses of glucagon which improved his ufwss-bv-wped glucose to 61. Glucose was 90 upon EMS arrival. EMS gave nothing in transport. Repeat uqsij-qi-taqd glucose 68 here. Juliane reports that mentation [...] necessitating ultrasound-guided IV line by myself. Repeat pmkxh-by-xiiq glucose upon obtaining IV line 100. Amp [...] nontender on repeat evaluation. Disposition changed to [facility] telemetry. Accepted by Dr. Spring as [...] Jacinto, age 57, came to ED6 by [facility] for a chief complaint of hypoglycemia. [facility] stated [facility] last seen him Aox3 at around 0400. ed educational aide went in to check on pt and pt was unresponsive with a blood sugar of 36. Nurses at [facility] gave him 2 glucagon IM injections and pt's blood sugar came up to 60. EMS reported a blood sugar of 90. On assessment, pt's rectal temp was 91.4F. Blood sugar was 63. Bear hugger applied. Physician put in 20G IV using the ultrasound. Amp of Dextrose given and liter of NS warmed infusing. groundwater monitoring technician applied. Vitals obtained. documented in this encounter [facility] 09-20-2023 Telephone encounter Note Please keep doses the same thank you [facility] Work Phone: 09-20-2023 Miscellaneous Notes Please keep doses the same thank you Images from the original note were not included. Patient BGL documented in this encounter [facility] 09-20-2023 Telephone encounter Note Images from the original note were not included. Patient BGL [facility] 08-31-2023 Telephone encounter Note Faxed response to [facility]. Thank you! [facility] 08-31-2023 Miscellaneous Notes Faxed response to [facility]. Thank you! Please keep doses the same thank you Images from the original note were not included. Patient's BGL documented in this encounter [facility] 08-30-2023 Telephone encounter Note Please keep doses the same thank you [facility] Work Phone: 08-30-2023 Telephone encounter Note Images from the original note were not included. Patient's BGL [facility] 08-19-2023 Note Formatting of this n ote might be different from the original. RN called asking me to sign the med rec so the patient can be transported to [facility]< Signed the med reconciliation form [facility] Work Phone: 08-19-2023 Note Formatting of this n ote might be different from the original. RN called asking me to sign the med rec so the patient can be transported to [facility]< [facility] the med reconciliation [facility] Work Phone: 08-19-2023 Miscellaneous Notes RN called asking me to sign the med rec so the patient can be transported to SNF< Signed the med reconciliation form Spoke with patient. Agreeable to returning back to [facility]. Updated facility via careport of discharge today and transport time of 430pm. LIQUOR STORES AND AGENCIES SUPERVISOR tasked to send discharge packet to facility. . Plan for patient to discharge today. Discharge order has been placed. Transportation arranged through [facility] by cot set for 4:30 pm. Notified RN and covering TCC of this. Will update patient at bedside. SW remains available if any other needs or concerns arise. Discharge med list transmitted to return back [facility] per TCC request. Referral placed to return back to [facility] per TCC request. Await review and response regarding ability to accept. TCC notified. Inpatient status from [facility] with abdominal pain. Admitted to F. ID [...] iv x 1 throughout the night.Did task LIQUOR STORES AND AGENCIES SUPERVISOR to send referral to [facility]. Discharge plan is to return to [facility] when medically stable... Problem: Pain Goal: My pain/discomfort is manageable Outcome: Progressing met Ice therapy offer/repositioning Problem: Safety Goal: Patient will be injury free during hospitalization Outcome: Progressing met Educate on using call light/ frequent rounding documented in this encounter [facility] 08-19-2023 History of Presen t illness Narrative Report called to Ana at [facility]. Department of Internal Medicine Division of Endocrinology, Diabetes, & Metabolism Endocrinology Note Patient Name: Will Jacinto : 1965 AGE: 57 y.o. Room/Bed: [facility] [place] A Admission Date: 08/17/2023 Visit Date: 08/19/2023 Reason for Endocrine Consult: DM2 Uncontrolled Provider/Team Requesting Consult: Dr. Hill PCP: Jared Guzman Outpt Sales And Marketing Assistant: Yes [facility] [place] Last seen 02/09/2023, Next appointment 10/27/2023 ASSESSMENT: Type 2 diabetes mellitus with hyperglycemia with intermediate project manager insulin use Leukocytosis Bipolar disorder Dm2 severe [...] units 3 times daily with meals Follow-up: [facility] endocrinology SUBJECTIVE/HPI: CHIEF COMPLAINT: Chief Complaint Patient [...] before lunch/285 units before dinner Lactobacillus Acid-Pectin (Acidophilus/Madera Pectin) tablet 1 tablet, Oral, 2 times [...] found for: CHOLHDLRATIO No results found for: [id number] Lab Results Component Value Date TSH 2.356 [...] ENDOSCOPY N/A 06/29/2023 Dr Sergio Sibley at [facility]; no specimens WISDOM TOOTH EXTRACTION Allergy(ies): No [...] from the original note were not included. [facility] - Infectious Diseases Attending Progress [...] 29 -- 24 26 BUN 17 -- CREATININE 0.72 -- 0.76 1.00 GLUCOSE 71 [...] be of moderate complexity. Art Reddy MD, [facility] Nutrition rescreen complete. Pt assigned a level one for nutrition care. Images from the original note were not included. PHYSICAL THERAPY [facility] Name/MRN: Maria Luisa Jacinto ([id number]) Date: 08/18/2023 PT evaluation orders received and chart review completed. 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 No acute PT needs identified. Rec return to [facility] with no PT. Mai Argueta PT Images from the original note were not included. Occupational Therapy OCCUPATIONAL THERAPY [facility] Name/MRN: Maria Luisa Jacinto ([id number]) Date: 08/18/2023 Therapy eval and treat orders [...] Scooter Wyatt OT documented in this encounter [facility] 08-19-2023 Note Formatting of this n ote might be different from the original. Spoke with patient. Agreeable to returning back to [facility]. Updated facility via careport of discharge today and transport time of 430pm. [facility] tasked to send discharge packet to facility. . [facility] 08-19-2023 Note Formatting of this n ote might be different from the original. Spoke with patient. Agreeable to returning back to [facility]. Updated facility via careport of discharge today and transport time of 430pm. [facility] tasked to send discharge packet to facility. . [facility] 08-19-2023 Note Formatting of this n ote might be different from the original. Plan for patient to discharge today. Discharge order has been placed. Transportation arranged through [facility] by cot set for 4:30 pm. Notified RN and covering TCC of this. Will update patient at bedside. SW remains available if any other needs or concerns arise. [facility] 08-19-2023 Note Formatting of this n ote might be different from the original. Plan for patient to discharge today. Discharge order has been placed. Transportation arranged through [facility] by cot set for 4:30 pm. Notified RN and covering TCC of this. Will update patient at bedside. SW remains available if any other needs or concerns arise. T [facility] 08-19-2023 Note Formatting of this n ote might be different from the original. Discharge med list transmitted to return back to [facility] via [facility] per TCC request. T [facility] 08-19-2023 Note Formatting of this n ote might be different from the original. Discharge med list transmitted to return back to [facility] via [facility] per TCC request. [facility] 08-19-2023 Hospital course Narrative Discharge Summary Will [...] August 20, 2023 CONTINUE taking these medications Acidophilus/Madera Pectin tablet ARIPiprazole 10 MG tablet Commonly [...] Complexity: follow up within 7-14 calendar days (42180) [] Severe Complexity: follow up within 7 calendar days (92218) FOLLOW UP TESTING, PENDING RESULTS OR REFERRALS [...] 08/19/2023, 10:09 AM documented in this encounter [facility] 08-19-2023 Note Formatting of this n ote might be different from the original. Referral placed to return back to [facility] via [facility] per TCC request. Await review and response regarding ability to accept. TCC notified. [facility] 08-19-2023 Note Formatting of this n ote might be different from the original. Referral placed to return back to [facility] via [facility] per TCC request. Await review and response regarding ability to accept. TCC notified. [facility] 08-19-2023 Hospital Discharg e instructions Kota Luque [...] ENDOSCOPY N/A 06/29/2023 Dr Sergio Sibley at [facility]; no specimens WISDOM TOOTH EXTRACTION Immunization History: [...] associated with type 2 diabetes mellitus (CMS/HCC) ([facility]) Esophagitis Nausea and vomiting Hyperlipidemia Cellulitis and abscess of lower extremity Chronic acquired lymphedema Cellulitis Hyperandrogenism Uncontrolled type 2 diabetes mellitus with complication Chronic osteomyelitis (CMS/HCC) ([facility]) 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 ([facility]) Class 3 severe obesity due to excess calories with serious comorbidity and body mass index (BMI) of 50.0 to 59.9 in adult ([facility]) Type 2 diabetes mellitus with hyperglycemia, with long-term current use of insulin ([facility]) Hyperglycemia Post-menopausal bleeding Morbid obesity ([facility]) Left leg cellulitis Diabetic foot infection S/P AKA (above knee amputation) unilateral, right ([facility]) Class 3 severe obesity due to excess calories with serious comorbidity and body mass index (BMI) of 60.0 to 69.9 in adult ([facility]) Isolation/Infection: No active isolations No active infections [...] Total assistance Toileting Total assistance Feeding Independent Lighting Director Independent Med Delivery yes Wound Care Documentation [...] select all that are sent with patient): {[facility] Patient Belongings:78017} RN SIGNATURE: MANAGEMENT/SOCIAL WORK SECTION Inpatient Status Date: Readmission Risk Assessment Score: @READMISSIONRISKDETAILS@ Discharging to Facility/ Agency Name: [facility] Address:[address] [place] [address] Dialysis Facility (if applicable) Name: Address: Dialysis Schedule: Phone: Fax: Car Servicer/Cut Off Machine Unloader signature: ICIAN SECTION Prognosis: fair Condition at Discharge: stable Rehab Potential (if transferring to Rehab): fair Recommended Labs or Other Treatments After Discharge: Physician Certification: I certify the above information and transfer of Will Jacinto is necessary for the continuing treatment of the diagnosis listed and that he requires group home facility for greater than 30 days. Update Admission H&P: No change in H&P PHYSICIAN SIGNATURE: documented in this encounter [facility] 08-19-2023 Note Formatting of this n ote might be different from the original. Inpatient status from [facility] with abdominal pain. Admitted to [facility]. ID consulted as patient was in [...] iv x 1 throughout the night.Did task LIQUOR STORES AND AGENCIES SUPERVISOR to send referral to [facility]. Discharge plan is to return to [facility] when medically stable... [facility] 08-19-2023 Note Formatting of this n ote might be different from the original. Inpatient status from [facility] with abdominal pain. Admitted to [facility]. ID consulted as patient was in [...] iv x 1 throughout the night.Did task LIQUOR STORES AND AGENCIES SUPERVISOR to send referral to [facility]. Discharge plan is to return to [facility] when medically stable... [facility] 10-11-2023 Plan of care note Problem: Pain Goal: My pain/discomfort is manageable Outcome: Progressing met Ice therapy offer/repositioning Problem: Safety Goal: Patient will be injury free during hospitalization Outcome: Progressing met Educate on using call light/ frequent rounding [facility] 08-18-2023 Emergency department Note Endocrinology pagekristina, have tried to contact multiple times in regards to Insulin order w/o response. Flor Alonso RN 08/18/[address] [facility] 08-18-2023 Emergency department Note Endocrinology melodie, have [...] otherwise acutely negative except as in the HYDABURG. PAST MEDICAL HISTORY Past Medical History: Diagnosis [...] soft tissue disorders Other symbolic dysfunctions Schizophrenia ([facility]) Sleep apnea no CPAP Venous insufficiency SURGICAL HISTORY Past Surgical History: Procedure Laterality Date ABCESS DRAINAGE Right 09/09/2018 FOOT; ACH COLONOSCOPY 09/19/[address] Hyde DILATION AND CURETTAGE OF UTERUS 05/18/2019 HYSTEROSCOPY 12/23/2021 LEG AMPUTATION THROUGH KNEE Right 06/16/2019 UPPER GASTROINTESTINAL ENDOSCOPY N/A 06/29/2023 Dr Sergio Sibley at [facility]; no specimens WISDOM TOOTH EXTRACTION CURRENT MEDICATIONS [...] Physician EKG interpretation can be found in [facility] RADIOLOGY (Per Emergency Physician): Interpretation per the [...] Culture. Procedure Abnormality Status --------- ------ Complete Urinalysis[[id number]] Please view results for these tests on [...] the abdomen pelvis. ED Course as of 08/17/232248 Aug 17, 20232248 CT abdomen pelvis w contrast [JAYLENE] ED Course User Index [JAYLENE] Brandon Leblanc, Diagnoses as of 08/17/232248 Upper abdominal pain [...] medicine further management Brandon Leblanc DO 08/17/23 1883 Arrived via ems from [facility], [facility] ABD pain /10 x 1 week, [...] Mendes RN 08/17/232045 documented in this encounter [facility] 08-18-2023 Consult note Associated Order (s): IP CONSULT TO ENDOCRINOLOGY Department of Internal Medicine Division of Endocrinology, Diabetes, & Metabolism Endocrinology Note Patient Name: Will Jacinto : 1965 AGE: 57 y.o. Room/Bed: 06/15 Admission Date: 08/17/2023 Visit Date: 08/18/2023 Reason for Endocrine Consult: DM2 Uncontrolled Provider/Team Requesting Consult: Dr. Hill PCP: Jared Guzman Outpt Sales And Marketing Assistant: Yes [facility] [place] Last seen 02/09/2023, Next appointment 10/27/2023 ASSESSMENT: Type 2 diabetes mellitus with hyperglycemia with chcf insulin use Leukocytosis Bipolar disorder Dm2 severe [...] times daily with meals Outpt Follow Up-- [facility] end[facility]ology SUBJECTIVE/HPI: CHIEF COMPLAINT: Chief Complaint Patient [...] before lunch/285 units before dinner Lactobacillus Acid-Pectin (Acidophilus/Madera Pectin) tablet 1 tablet, Oral, 2 times [...] found for: CHOLHDLRATIO No results found for: [id number] Lab Results Component Value Date TSH 2.356 [...] 08/17/2023 Patient Name: WILL JACINTO : 1965 [facility]#: [id number] Exam Date/Time: 08/17/2023 15:08 Procedure: CT ABDOMEN [...] side (HCC) Anxiety disorder Bipolar 1 disorder ([facility]) Blood circulation, collateral Cellulitis chronic L lower leg COVID 12/08/2021 Depression Diabetes mellitus ([facility]) Type II, on insulin Disease of blood and blood forming organ Endometrial carcinoma ([facility]) 11/25/2020 Endometrial hyperplasia Foot ulcer ([facility]) Hx of blood clots RLE prior to amputation Hyperlipidemia Hypertension Lymphedema 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 [facility] 08-18-2023 Consult note Associated Order (s): IP CONSULT TO ENDOCRINOLOGY Department of Internal Medicine Division of Endocrinology, Diabetes, & Metabolism Endocrinology Note Patient Name: Will Jacinto : 1965 AGE: 57 y.o. Room/Bed: 06/15 Admission Date: 08/17/2023 Visit Date: 08/18/2023 Reason for Endocrine Consult: DM2 Uncontrolled Provider/Team Requesting Consult: Dr. Hill PCP: Jared Guzman Outpt Sales And Marketing Assistant: Yes [facility] [place] Last seen 02/09/2023, Next appointment 10/27/2023 ASSESSMENT: Type 2 diabetes mellitus with hyperglycemia with chcf insulin use Leukocytosis Bipolar disorder Dm2 severe [...] times daily with meals Outpt Follow Up-- [facility] endocrinology SUBJECTIVE/HPI: CHIEF COMPLAINT: Chief [...] before lunch/285 units before dinner Lactobacillus Acid-Pectin (Acidophilus/Madera Pectin) tablet 1 tablet, Oral, 2 times [...] found for: CHOLHDLRATIO No results found for: [id number] Lab Results Component Value Date TSH 2.356 [...] side (HCC) Anxiety disorder Bipolar 1 disorder ([facility]) Blood circulation, collateral Cellulitis chronic L lower leg COVID 12/08/2021 Depression Diabetes mellitus ([facility]) Type II, on insulin Disease of blood and blood forming organ Endometrial carcinoma ([facility]) 11/25/2020 Endometrial hyperplasia Foot ulcer ([facility]) Hx of blood clots RLE prior to amputation Hyperlipidemia Hypertension Lymphedema MDRO (multiple drug resistant organisms) resistance hx CRE and MRSA in 2018, RLE Morbidly obese ([facility]) Muscle weakness Osteomyelitis (HCC) Osteomyelitis ([facility]) 2019 RLE Other lack of coordination Other [...] ENDOSCOPY N/A 06/29/2023 Dr Sergio Sibley at [facility]; no specimens WISDOM TOOTH EXTRACTION Allergy(ies): No [...] from the original note were not included. [facility] - Infectious Diseases Attending Consult Note Reason for Consult: Complicated UTI History of Present Illness: Patient is 57 year old admitted to [facility] with abdominal discomfort N/V. Patient was in [...] Acquired absence of other toe(s), unspecified side ([facility]) Anxiety disorder Bipolar 1 disorder ([facility]) Blood circulation, collateral Cellulitis chronic L lower leg COVID 12/08/2021 Depression Diabetes mellitus ([facility]) Type II, on insulin Disease of blood and blood forming organ Endometrial carcinoma ([facility]) 11/25/2020 Endometrial hyperplasia Foot ulcer ([facility]) Hx of blood clots RLE prior to amputation Hyperlipidemia Hypertension Lymphedema MDRO (multiple drug resistant organisms) resistance hx CRE and MRSA in 2018, RLE Morbidly obese ([facility]) Muscle weakness Osteomyelitis (HCC) Osteomyelitis ([facility]) 2019 RLE Other lack of coordination Other specified soft tissue disorders Other symbolic dysfunctions Schizophrenia ([facility]) Sleep apnea no CPAP Venous insufficiency Past Surgical History: Past Surgical History: Procedure Laterality Date ABCESS DRAINAGE Right 09/09/2018 FOOT; ACH COLONOSCOPY 09/19/[address] Hyde DILATION AND CURETTAGE OF UTERUS 05/18/2019 HYSTEROSCOPY 12/23/2021 LEG AMPUTATION THROUGH KNEE Right 06/16/2019 UPPER GASTROINTESTINAL ENDOSCOPY N/A 06/29/2023 Dr Sergio Sibley at [facility]; no specimens WISDOM TOOTH EXTRACTION Current Medications: [...] % infusion 100 mL/hr IntraVENous PRN Negritan Deana, DO dextrose 50 % solution 12.5 g [...] 15 g 15 g Oral PRN Brandon Marinoworth, DO influenza vac subunit quadrivalent (Flucelvax) injection [...] before lunch/285 units before dinner Lactobacillus Acid-Pectin (Acidophilus/Madera Pectin) tablet Take 1 tablet by mouth [...] MD, MACP, FIDSA documented in this encounter [facility] 08-18-2023 History and physical note Department of [...] ENDOSCOPY N/A 06/29/2023 Dr Sergio Sibley at [facility]; no specimens WISDOM TOOTH EXTRACTION Medications Prior [...] 2 diabetes mellitus with complication Chronic osteomyelitis (CMS/[facility]) ([facility]) 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 ([facility]) Class 3 severe obesity due to excess calories with serious comorbidity and body mass index (BMI) of 50.0 to 59.9 in adult ([facility]) Type 2 diabetes mellitus with hyperglycemia, with long-term current use of insulin ([facility]) Hyperglycemia Post-menopausal bleeding Morbid obesity ([facility]) Left leg cellulitis Diabetic foot infection S/P AKA (above knee amputation) unilateral, right ([facility]) Class 3 severe obesity due to excess calories with serious comorbidity and body mass index (BMI) of 60.0 to 69.9 in adult ([facility]) Chest pain Chest pain, unspecified type Upper abdominal pain Intertriginous homa Abd pain DM 2 HTN HPL Plan Obs admit Hopefully back to [facility] tomorrow NABIL HILL DO 08/18/23 10:[address] [facility] 08-18-2023 History and physical note Department of [...] Above knee amputation of right lower extremity ([facility]) Acquired absence of other toe(s), unspecified side [...] ENDOSCOPY N/A 06/29/2023 Dr Sergio Sibley at [facility]; no specimens WISDOM TOOTH EXTRACTION Medications Prior [...] 08/18/23 10:00 AM documented in this encounter [facility] 08-18-2023 Consult note Associated Order (s): IP CONSULT TO INFECTIOUS DISEASES Images from the original note were not included. [facility] - Infectious Diseases Attending Consult Note Reason for Consult: Complicated UTI History of Present Illness: Patient is 57 year old admitted to [facility] with abdominal discomfort N/V. Patient was in [...] ENDOSCOPY N/A 06/29/2023 Dr Sergio Sibley at [facility]; no specimens WISDOM TOOTH EXTRACTION Current Medications: [...] solution 12.5 g 12.5 g IntraVENous PRN Jaklyn Wich[place], DO 12.5 g at 08/17/23 1809 [id number] [...] M Esterle, DO 40 mg at 08/18/23 08 megestrol (Megace) tablet 20 mg 20 mg [...] 40 mg 40 mg Oral qAM AC Naibl M Esterle, DO 40 mg at 08/18/23 [...] before lunch/285 units before dinner Lactobacillus Acid-Pectin (Acidophilus/Madera Pectin) tablet Take 1 tablet by mouth [...] accounting for open encounter. Art Reddy MD, [facility] [place] [facility] 08-17-2023 Emergency department Note Bed: 27 Expected date: Expected time: Means of arrival: Comments: PHYSICIANS Lisa Curtis RN 08/17/[address] [facility] 08-17-2023 Emergency department Note Bed: 08 Expected date: Expected time: Means of arrival: Comments: Main 2 Dalila Mendes RN 08/17/232045 [facility] 08-17-2023 Emergency department Triage note Arrived via [...] within reach, continue with plan of care [facility] 08-17-2023 Physician Emergency department Note EMERGENCY DEPARTMENT [...] otherwise acutely negative except as in the HYDABURG. PAST MEDICAL HISTORY Past Medical History: Diagnosis [...] ENDOSCOPY N/A 06/29/2023 Dr Sergio Sibley at [facility]; no specimens WISDOM TOOTH EXTRACTION CURRENT MEDICATIONS [...] Culture. Procedure Abnormality Status --------- ------ Complete Urinalysis[[id number]] Please view results for these tests on [...] the abdomen pelvis. ED Course as of 08/17/232248 Aug 17, 20232248 CT abdomen pelvis w [...] Medicine Provider Aaron Burgos DO 08/17/[address] [facility] 08-17-2023 Physician Emergency department Note Pt signed [...] further management Brandon Leblanc DO 08/17/[address] [facility] 08-12-2023 Telephone encounter Note Faxed over recommendation. Thank you! [facility] 08-12-2023 Miscellaneous Notes Faxed over recommendation. Thank you! Please keep doses the same thank you Images from the original note were not included. Patient BGL documented in this encounter [facility] 08-12-2023 Telephone encounter Note Please keep doses the same thank you [employer] Work Phone: 08-11-2023 Telephone encounter Note Images from the original note were not included. Patient BGL [employer] 08-09-2023 Telephone encounter Note Pt rescheduled appt with herber Ramos to 08/13/23; respiratory consult for lung nodule was placed on 08/07/[address] AP confirmed 7mm lung nodule. Navigator will continue to follow and assist with follow up as needed after appt 08/13. [employer] 08-09-2023 Miscellaneous Notes Pt rescheduled appt with [...] Guzman office. Received call from someone at [phone] stating they got a call to this [...] finding.Await comparison report. documented in this encounter [facility] 08-08-2023 Emergency department Note Physicians [facility]arrived and report given. Patient returned to SNF. SNF was informed. Karlos Garcia RN 08/08/23 1448 Karlos Garcia RN 08/08/[address] [facility] 08-08-2023 Emergency department Note [facility]arrived and report given. Patient returned to SNF. SNF was informed. Karlos Garcia RN 08/08/23 1448 Karlos Garcia RN 08/08/23 1449 Karlos Garcia RN 08/08/23 1123 Karlos Garcia RN 08/08/23 1123 Bed: 17 Expected date: Expected time: Means of arrival: Comments: Nalini Mendes RN 08/08/23 0632 documented in this encounter [facility] 08-08-2023 Emergency department Note Karlos Garcia RN 08/08/231122 Karlos Garcia RN 08/08/231122 [facility] 08-08-2023 Emergency department Note Bed: 17 Expected date: Expected time: Means of arrival: Comments: Nalini Mendes RN 08/08/[address] [facility] 07-23-2023 Telephone encounter Note Pt to see Herber Ramos in [facility] 07/30/[address] [facility] 07-23-2023 Miscellaneous Notes Pt to see Herber Ramos in [facility] 07/30/[address] Guzman office, pt does not have any scheduled fu. Provided new phone number for patient. Added to chart. Faxed report and contact info for navigator to Jared Guzman office. Received call from someone at [phone] stating they got a call to this [...] finding.Await comparison report. documented in this encounter [facility] 07-20-2023 Telephone encounter Note Contacted Dr. Guzman office, pt does not have any scheduled fu. Provided new phone number for patient. Added to chart. [facility] 07-20-2023 Telephone encounter Note Faxed report and contact info for navigator to Jared Guzman office. [facility] 07-20-2023 Telephone encounter Note Received call from someone at [phone] stating they got a call to this number and this is a work phone. Patient and person identified via phone do not match. Will not attempt phone number again. EC contact attempted but no answer. [facility] 07-15-2023 Telephone encounter Note Lm requesting a return phone call to discuss finding [facility] 07-05-2023 Telephone encounter Note Patient appeared on ED Nuance search after CTA chest 06-28-2023 noted a 7 mm right middle lobe lung nodule. Imaging was completed for chest pain and history of DVT. Outside facility imaging on 11-22-2020 noted a right middle lobe 3 mm nodule. Requested outside facility imaging for comparison to determine whether this is an enlarging finding.Await comparison report. [facility] 07-01-2023 Note Formatting of this n ote might be different from the original. Return to [facility] this afternoon at 1:00. [facility] messaged the facility with the dc time. [facility] to [facility]. Ambulance transport form completed. [facility] 07-01-2023 Note Formatting of this n ote might be different from the original. Return to [facility] this afternoon at 1:00. [facility] messaged the facility with the dc time. [facility] to transport. Ambulance transport form completed. [facility] 07-01-2023 Miscellaneous Notes Return to [facility] this afternoon at 1:00. [facility] messaged the facility with the dc time. [facility] to transport. Ambulance transport form completed. Discharge med list transmitted to [facility] via [facility] per [facility] request. Patient Choice Patient Name: WILL JACINTO Date of : 1965 All Providers Sent Referral Name: [facility] Phone: [phone] Address: [address] [place] [address] Images from the original note were not included. Care Management Progress Note Pt has discharge order placed. Tasked LIQUOR STORES AND AGENCIES SUPERVISOR to send discharge paperwork to [facility]. Notified DISTRIBUTION SALES MANAGER to arrange transportation. Facility notified pt to return today. Discharge Milestones and Delays Expected Date/Time: 07/01/2023 Midday Disposition: Care Home Facility Transport status: No current request Discharge Milestones Completed Place discharge order Complete med reconciliation Case mgmt discharge readiness Expected Discharge History Expected Date/Time Set By Reviewed At 07/01/2023 Midday Nabil Hill, 06/30/2023 7:25 PM 06/30/2023 Nabil Hill DO [...] ACS. Endocrine following. Pt to return to [facility] at discharge. Discharge Milestones and Delays Expected [...] for EGD today. Wheelchair bound. DC plan: [facility], bed hold. No authorization needed. Discharge Milestones [...] obtained: None Medications administered: 200mg Propofol per TOILET AND LAUNDRY SOAP SUPERVISOR Additional Info: Adult diet regular; 3 carb choices (45gm/meal); see Dr Sibley' orders For additional Questions please call Endoscopy at [phone]. Thank You! Dr Sibley in [facility] talking to [facility] Name: Will Jacinto Procedure Date: 06/29/2023 8:19 AM Gender: Female Date of : 1965 Age: 57 Admit Type: Inpatient Note Status: Finalized Endoscopist: Sergio Sibley DO, [id number] Procedure: Upper GI endoscopy Indications: Chest pain [...] immediate complications. Procedure Code(s): --- Professional --- 03175, Esophagogastroduodenoscopy, flexible, transoral; diagnostic, including collection of specimen(s) by brushing or washing, when performed (separate procedure) --- Technical --- 22215, Esophagogastroduodenoscopy, flexible, transoral; diagnostic, including collection of specimen(s) by brushing or washing, when performed (separate procedure) Diagnosis Code(s): --- Professional --- R07.89, Other chest pain R11.2, Nausea with vomiting, unspecified --- Technical --- R07.89, Other chest pain R11.2, Nausea with vomiting, unspecified CPT copyright 2021 [employer]. All rights reserved. The codes documented in this report are preliminary and upon financial assistance advisor review may be revised to meet current [...] Limits Permission given to speak with patient patient access representative/caregiver as indicated: Yes (Jovana Quesada ([facility]) [phone]) Confirmation of Payer with patient/family: Yes Payer Name: [facility] Dual Brogue: No Confirmation of Primary Care Physician: Confirmed [...] Number of Entry Steps: Bed/Bath Levels: Facility: [facility] Facility Name: [facility] Plan to Return: Yes Lives [...] expects to be discharged to: Back to [facility]. Discharge Planning Actions: Continue to [...] R bka, is wheelchair bound. Lives at [facility] and plans to return. Cardiology consulted. Task sent to [facility] to [facility] return referral to [facility]. TCC will continue to follow. Herber Armando RN Patient was referred to the [facility] service for admission but his primary care physician is covered by Dr. Hill. Dr. Hill will see and admit. Attending changed to Dr. Hill. documented in this encounter [facility] 07-01-2023 Note Formatting of this n ote might be different from the original. Discharge med list transmitted to [facility] per [facility] request. [facility] 07-01-2023 Note Formatting of this n ote might be different from the original. Discharge med list transmitted to [facility] request. [facility] 07-01-2023 Hospital course Narrative Discharge Summary Will [...] MEDICATIONS: Medication List CONTINUE taking these medications Acidophilus/Madera Pectin tablet ARIPiprazole 10 MG tablet Commonly [...] Complexity: follow up within 7-14 calendar days (55280) [] Severe Complexity: follow up within 7 calendar days (19165) FOLLOW UP TESTING, PENDING RESULTS OR REFERRALS AT TRANSITIONAL CARE VISIT: [] Yes [] No PENDING STUDIES: none DISPOSITION: Skilled Facility FACILITY/HOME CARE AGENCY NAME: [facility] Follow up with Sergio Sibley DO [address] Counts include 234 beds at the [facility] [phone] Follow up As needed INSTRUCTIONS TO MA/SW: [...] 07/01/2023, 8:48 AM documented in this encounter [facility] 07-01-2023 Note Formatting of this n ote might be different from the original. Patient Choice Patient Name: WILL JACINTO Date of : 1965 All Providers Sent Referral Name: [facility] Phone: [phone] Address: [address] [place] [id number] [facility] 07-01-2023 Note Formatting of this n ote might be different from the original. Patient Choice Patient Name: WILL JACINTO Date of : 1965 All Providers Sent Referral Name: [facility] Phone: [phone] Address: [address] [place] [id number] [facility] 07-01-2023 Note Formatting of this n ote is different from the original. Images from the original note were not included. Care Management Progress Note Pt has discharge order placed. Tasked LIQUOR STORES AND AGENCIES SUPERVISOR to send discharge paperwork to [facility]. Notified DISTRIBUTION SALES MANAGER to arrange transportation. Facility notified pt to return today. Discharge Milestones and Delays Expected Date/Time: 07/01/2023 Midday Disposition: Care Home Facility Transport status: No current request Discharge [...] Length of Stay (Days): 3 GMLOS: 1.7 [facility] 07-01-2023 Note Formatting of this n ote is different from the original. Images from the original note were not included. Care Management Progress Note Pt has discharge order placed. Tasked LIQUOR STORES AND AGENCIES SUPERVISOR to send discharge paperwork to [facility]. Notified DISTRIBUTION SALES MANAGER to arrange transportation. Facility notified pt to return today. Discharge Milestones and Delays Expected Date/Time: 07/01/2023 Midday Disposition: Care Home Facility Transport status: No current request Discharge Milestones Completed Place discharge order Complete med reconciliation Case mgmt discharge readiness Expected Discharge History Expected Date/Time Set By Reviewed At 07/01/2023 Midday Nabil Hill 06/30/2023 7:25 PM 06/30/2023 Nabil Hill DO 06/28/2023 8:48 AM 06/29/2023 Herber Armando RN 06/28/2023 7:51 AM 06/29/2023 Rosaura Mustafa DO 06/28/2023 6:19 AM 06/29/2023 Rosaura Mustafa DO 06/28/2023 5:11 AM Length of Stay (Days): 3 GMLOS: 1.[address] [facility] 06-30-2023 Hospital Discharg e instructions David Lui RN - 06/30/2023 7:25 PM EDT Continuity of Care Form Patient Name: Will Jacinto : 1965 Admit date: 06/28/2023 Discharge date: 07/01/23 Code Status Order: Full Code Advance Directives: N Admitting Physician: Nabil Hill DO PCP: Jared Guzman Discharging Nurse: Janina Discharging Hospital Unit/Room#: B2-257/B2-257 A Discharging Unit Phone Number: [phone] Emergency Contact: Extended Emergency Contact Information Primary [...] ENDOSCOPY N/A 06/29/2023 Dr Sergio Sibley at [facility]; no specimens WISDOM TOOTH EXTRACTION Immunization History: Immunization History Administered Date(s) Administered Covid-19, Pfizer Cazares Top, Do Not Dilute, (Age 12 Y+), Im, L 02/26/2022 Influenza, injectable, quadrivalent, preservative free 01/14/2019, 08/12/2021 Pfizer SARS-CoV-2 Vaccination 11/13/2020, 12/04/2020, 08/28/2021 Active Problems: Medical Problems Problem List * (Principal) Chest pain Hypertension Chest pain, unspecified type Endometrial carcinoma (HCC) Endometrial hyperplasia Diabetic hyperosmolar non-ketotic state ([facility]/HCC) ([facility]) Thickened endometrium Ileus ([facility]/H[facility]) ([facility]) Complex endometrial hyperplasia with atypia Diabetic gastroparesis associated with type 2 diabetes mellitus ([facility]) ([facility]) Esophagitis Nausea and vomiting Hyperlipidemia Cellulitis and abscess of lower extremity Chronic acquired lymphedema Cellulitis Hyperandrogenism Uncontrolled type 2 diabetes mellitus with complication Chronic osteomyelitis ([facility]) ([facility]) 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 ([facility]) Class 3 severe obesity due to excess calories with serious comorbidity and body mass index (BMI) of 50.0 to 59.9 in adult ([facility]) Type 2 diabetes mellitus with hyperglycemia, with long-term current use of insulin ([facility]) ([facility]) Hyperglycemia Post-menopausal bleeding Morbid obesity ([facility]) Left leg cellulitis Diabetic foot infection ([facility]) S/P AKA (above knee amputation) unilateral, right ([facility]) Class 3 severe obesity due to excess calories with serious comorbidity and body mass index (BMI) of 60.0 to 69.9 in adult ([facility]) Isolation/Infection: Contact CRE Nurse Assessment: Last Vital [...] Total assistance Toileting Total assistance Feeding Independent Lighting Director Independent Med Delivery yes Wound Care Documentation [...] Score: @READMISSIONRISKDETAILS@ Discharging to Facility/ Agency Name: [facility] Address: [address] [place] [address] Fax: Dialysis Facility (if applicable) Name: Address: Dialysis Schedule: Phone: Fax: Car Servicer/Cut Off Machine Unloader signature: ICIAN SECTION Prognosis: fair Condition at Discharge: stable Rehab Potential (if transferring to Rehab): fair Recommended Labs or Other Treatments After Discharge: none Physician Certification: I certify the above information and transfer of Will Jacinto is necessary for the continuing treatment of the diagnosis listed and that he requires group home facility for greater than 30 days. Update Admission H&P: No change in H&P PHYSICIAN SIGNATURE: documented in this encounter [facility] 06-30-2023 Note Formatting of this n ote is different from the original. Images from the original note were not included. Care Management Progress Note Pt remains on 2E due to chest pain. S/P EGD 06/29-GI following.Cardiology- no evidence of ACS. Endocrine following. Pt to return to [facility] at discharge. Discharge Milestones and Delays Expected [...] Length of Stay (Days): 2 GMLOS: 1.[address] [facility] 06-30-2023 Note Formatting of this n ote is different from the original. Images from the original note were not included. Care Management Progress Note Pt remains on 2E due to chest pain. S/P EGD 06/29-GI following.Cardiology- no evidence of ACS. Endocrine following. Pt to return to [facility] at discharge. Discharge Milestones and Delays Expected [...] Length of Stay (Days): 2 GMLOS: 1.7 [facility] 06-30-2023 History of Presen t illness Narrative [...] reviewed with the patient. CBC: Recent Labs 06/28/2324906/29/23 0230 WBC 11.8* 9.2 HGB 11.6* 10.8* HCT 35.1 32.6 PLT 384 361 HEPATIC: Recent Labs 06/29/23 0230 AST 32 ALT 41 BILITOT 0.3 ALKPHOS 121 LIPASE/AMYLASE: No results for input(s): AMYLASE, LIPASE in the last 72 hours. LACTATE: No lab exists for component: LACTA BNP: Recent Labs 06/28/23 025 BNP 150 INR: No results for input(s): [...] Jacinto : 1965 AGE: 57 y.o. Room/Bed: Banner/Banner A Admission Date: 06/28/2023 Visit Date: 06/30/2023 Reason for Endocrine Consult: dm2 Provider/Team Requesting Consult: Dr. Hill PCP: Jared Guzman Outpt Sales And Marketing Assistant: Dr. [place] [facility] [place] ASSESSMENT: DM 2 poor control Cheat [...] doses to be determined Outpt Follow Up-- [facility] [facility] [place] SUBJECTIVE/HPI: CHIEF COMPLAINT: Chief Complaint Patient [...] before lunch/285 units before dinner Lactobacillus Acid-Pectin (Acidophilus/Madera Pectin) tablet 1 tablet, Oral, 2 times [...] found for: CHOLHDLRATIO No results found for: [id number] Lab Results Component Value Date TSH 2.356 11/26/2020 Radiology reportsas per the Radiologist Radiology: ECG 12 lead Result Date: 06/28/2023 Sinus tachycardia Nonspecific IVCD with LAD Left ventricular hypertrophy Minimal ST elevation, anterolateral leads Electronically Signed On 06-28-2023 5:20:13 EDT by Rosaura Mustafa CT chest angiogram w and/or wo IV contrast Result Date: 06/28/2023 [facility] Name: [facility]INTO : 1965 [id number] Exam Date/Time: 06/28/2023 03:49 Procedure: CT CHEST [...] 06/28/2023 Patient Name: WILL JACINTO : 1965 [id number] Exam Date/Time: 06/28/2023 03:08 Procedure: XR CHEST [...] ENDOSCOPY N/A 06/29/2023 Dr Sergio Sibley at [facility]; no specimens WISDOM TOOTH EXTRACTION Allergy(ies): No [...] Jacinto : 1965 AGE: 57 y.o. Room/Bed: Banner/[address] Admission Date: 06/28/2023 Visit Date: 06/29/2023 Reason for Endocrine Consult: dm2 Provider/Team Requesting Consult: Dr. Hill PCP: Jared Guzman Outpt Sales And Marketing Assistant: Dr. Jesus spear endo ASSESSMENT: DM 2 [...] scheduled doses resume tonight Type of DM: Onset of DM: 1991 Home DM Medication [...] Lying Pulse: 92 95 93 92 Resp: 19 20 18 Temp: 36.3 C (97.4 [...] before lunch/285 units before dinner Lactobacillus Acid-Pectin (Acidophilus/Madera Pectin) tablet 1 tablet, Oral, 2 times [...] found for: CHOLHDLRATIO No results found for: [id number] Lab Results Component Value Date TSH 2.356 [...] 06/28/2023 Patient Name: WILL JACINTO : 1965 [facility]#: [id number] Exam Date/Time: 06/28/2023 03:08 Procedure: XR CHEST [...] side (HCC) Anxiety disorder Bipolar 1 disorder ([facility]) Blood circulation, collateral Cellulitis chronic L lower leg COVID 12/08/2021 Depression Diabetes mellitus ([facility]) Type II, on insulin Disease of blood and blood forming organ Endometrial carcinoma (HCC) 11/25/2020 Endometrial hyperplasia Foot ulcer ([facility]) Hx of blood clots RLE prior to amputation Hyperlipidemia Hypertension Lymphedema 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, RLE Morbidly obese (HCC) Muscle weakness Osteomyelitis (HCC) Osteomyelitis (HCC) 2019 RLE Other lack of coordination Other specified soft tissue disorders Other symbolic dysfunctions Schizophrenia ([facility]) Sleep apnea no CPAP Venous insufficiency Past Surgical History: Past Surgical History: Procedure Laterality Date ABCESS DRAINAGE Right 09/09/2018 FOOT; ACH COLONOSCOPY 09/19/[address] Hyde DILATION AND CURETTAGE OF UTERUS 05/18/2019 HYSTEROSCOPY 12/23/2021 LEG AMPUTATION THROUGH KNEE Right 06/16/2019 UPPER GASTROINTESTINAL ENDOSCOPY N/A 06/29/2023 Dr Sergio Sibley at [facility]; no specimens WISDOM TOOTH EXTRACTION Allergy(ies): No [...] 06/29/23 9:10 AM documented in this encounter [facility] 06-30-2023 Note Sinus rhythm Abnormal R-wave progression, late transition Left ventricular hypertrophy Electronically Signed On 06-30-2023 12:43:24 EDT by Art LAZARO EPIPHDEEPTI 06-30-2023 Note Sinus rhythm Abnormal R-wave progression, [...] include implement nonpharmacological interventions to manage anxiety. [facility] 06-29-2023 Note Formatting of this n ote is different from the original. Images from the original note were not included. Care Management Progress Note Chart reviewed. Patient remains on with chest pain. HX transgender F-M, Schizophrenia, Bipolar. R BKA, is wheelchair bound. Cardiology and GI following. Plan for EGD today. Wheelchair bound. DC plan: [facility], bed hold. No authorization needed. Discharge Milestones [...] Length of Stay (Days): 1 GMLOS: 1.[address] [facility] 06-29-2023 Note Formatting of this n ote is different from the original. Images from the original note were not included. Care Management Progress Note Chart reviewed. Patient remains on with chest pain. HX transgender F-M, Schizophrenia, Bipolar. R BKA, is wheelchair bound. Cardiology and GI following. Plan for EGD today. Wheelchair bound. DC plan: [facility], bed hold. No authorization needed. Discharge Milestones [...] Length of Stay (Days): 1 GMLOS: 1.7 [facility] 06-29-2023 Procedure anesthe ben Narrative Procedure Name [...] Melissa Sosa RN documented in this encounter [facility] [id number] Note* Perioperative Nursing Note - Usman Ulrich RN - 06/29/2023 10:54 AM EDT Report called to [place] [id number] Note* Perioperative Nursing Note - Usman Ulrich RN - 06/29/2023 10:54 AM EDT Report called to Herber Hawk [place] [id number] Note* Perioperative Nursing Note - Usman Ulrich RN - 06/29/2023 10:40 AM EDT POST ENDOSCOPY PROCEDURE TRANSFER REPORT Procedure completed: EGD Findings: WDL Specimens obtained: None Medications administered: 200mg Propofol per TOILET AND LAUNDRY SOAP SUPERVISOR Additional Info: Adult diet regular; 3 carb choices (45gm/meal); see Dr Sibley' orders For additional Questions please call Endoscopy at [phone]. Thank You! [facility] [id number] Note* Perioperative Nursing Note - Usman Ulrich RN - 06/29/2023 10:40 AM EDT POST ENDOSCOPY PROCEDURE TRANSFER REPORT Procedure completed: EGD Findings: WDL Specimens obtained: None Medications administered: 200mg Propofol per TOILET AND LAUNDRY SOAP SUPERVISOR Additional Info: Adult diet regular; 3 carb choices (45gm/meal); see Dr Sibley' orders For additional Questions please call Endoscopy at [phone]. Thank You! [place] [id number] Note* Perioperative Nursing Note - Usman Ulrich RN - 06/29/2023 10:[address] Sibley in room talking to patient [id number] Note* Perioperative Nursing Note - Usman Ulrich RN - 06/29/2023 10:[address] Sibley in room talking to patient [place] [id number] Note* Addendum Note - JEREMY Naranjo CRNA - 06/29/2023 10:21 AM EDT Addendum created 06/29/23 1021 by JEREMY Naranjo CRNA Attestation recorded in Intraprocedure, Intraprocedure Attestations filed [place] [id number] Miscellaneous Notes* Addendum Note - JEREMY Naranjo CRNA - 06/29/2023 10:21 AM EDT Addendum created 06/29/23 1021 by JEREMY Naranjo CRNA Attestation recorded in Intraprocedure, Intraprocedure Attestations filed * Anesthesia Discharge Note - JEREMY Naranjo CRNA - 06/29/2023 10:20 AM EDT Patient: Maria Luisa Jacinto Procedure Summary Date: 06/29/23 Room / Location: [place] [address] / [facility] Gastroenterology Anesthesia Start: 953 Anesthesia Stop: 1018 [...] criteria has been met. documented in this encounterSVeterans Health [id number] Note* Anesthesia Discharge Note - JEREMY Naranjo CRNA - 06/29/2023 10:20 AM EDT Patient: Maria Luisa Jacinto Procedure Summary Date: 06/29/23 Room / Location: [place] [address] / [facility] Gastroenterology Anesthesia Start: 953 Anesthesia Stop: 1018 [...] once all PACU criteria has been met. [facility] [id number] Anesthesiology Postoperative evaluation and management note* Anesthesia Postprocedure Evaluation - JEREMY Naranjo CRNA - 06/29/2023 10:20 AM EDT Patient: Maria Luisa Jacinto Procedure Summary Date: 06/29/23 Room / Location: [place] [address] / [facility] Gastroenterology Anesthesia Start: 953 Anesthesia Stop: 1019 [...] opportunity for questions and acknowledgement of understanding. [facility]08-22-2023 Surgical operation note* Anesthesia Postprocedure Evaluation - JEREMY Naranjo CRNA - 06/29/2023 10:20 AM EDT Patient: Maria Luisa Jacinto Procedure Summary Date: 06/29/23 Room / Location: [address] Gastroenterology Anesthesia Start: 953 Anesthesia Stop: [...] Date/Time: 06/29/23 0900 Procedure: EGD DIAGNOSTIC Location: [place] [address] / [facility] Gastroenterology Providers: Sergio Sibley DO Relevant Problems Cardio (+) Hyperlipidemia (+) Hypertension (+) 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 ([facility]) Endo (+) Type 2 diabetes mellitus with hyperglycemia, with long-term current use of insulin ([facility]) ([facility]) (+) Uncontrolled type 2 diabetes mellitus with complication Other (+) Chronic osteomyelitis ([facility]) ([facility]) (+) Endometrial carcinoma ([facility]) Past Medical History: Past Medical History: No date: Abnormal uterine bleeding (AUB) Comment: SCHEDULED FOR THE SURGERY ON 05/16/2019 No date: Above knee amputation of right lower extremity ([facility]) No date: Acquired absence of other toe(s), unspecified side ([facility]) No date: Anxiety disorder No date: Bipolar 1 disorder ([facility]) No date: Blood circulation, collateral No date: Cellulitis Comment: chronic L lower leg 12/08/2021: COVID No date: Depression No date: Diabetes mellitus ([facility]) Comment: Type II, on insulin No date: Disease of blood and blood forming organ 11/25/2020: Endometrial carcinoma ([facility]) No date: Endometrial hyperplasia No date: Foot ulcer ([facility]) No date: Hx of blood clots Comment: RLE prior to amputation No date: Hyperlipidemia No date: Hypertension No date: Lymphedema No date: 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, RLE No date: Morbidly obese ([facility]) No date: Muscle weakness No date: Osteomyelitis ([facility]) 2019: Osteomyelitis ([facility]) Comment: RLE No date: Other lack of coordination No date: Other specified soft tissue disorders No date: Other symbolic dysfunctions No date: Schizophrenia ([facility]) No date: Sleep apnea Comment: no CPAP [...] deviation no longer present documented in this [facility]08-22-2023 Nurse Note* Usman Ulrich RN - 06/29/2023 10:18 AM EDT [id number] Nurse Note* Usman Ulrich RN - 06/29/2023 10:18 AM EDT No specimens documented in this [facility]08-22-2023 Anesthesiology Preoperative evaluation and management note* Anesthesia Preprocedure Evaluation - Ezio Lr APRN - TOILET AND LAUNDRY SOAP SUPERVISOR - 06/29/2023 9:41 AM EDT Patient: Maria Luisa Jacinto Procedure Information Date/Time: 06/29/23 0900 Procedure: EGD DIAGNOSTIC Location: [place] [address] / [facility] Gastroenterology Providers: Sergio Sibley, DO Relevant Problems Cardio (+) Hyperlipidemia (+) Hypertension (+) 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 (HCC) Endo (+) Type 2 diabetes mellitus with hyperglycemia, with long-term current use of insulin (CMS/HCC) ([facility]) (+) Uncontrolled type 2 diabetes mellitus with complication Other (+) Chronic osteomyelitis ([facility]/HCC) ([facility]) (+) Endometrial carcinoma ([facility]) Past Medical History: Past Medical History: No date: Abnormal uterine bleeding (AUB) Comment: SCHEDULED FOR THE SURGERY ON 05/16/2019 No date: Above knee amputation of right lower extremity ([facility]) No date: Acquired absence of other toe(s), unspecified side ([facility]) No date: Anxiety disorder No date: Bipolar 1 disorder ([facility]) No date: Blood circulation, collateral No date: Cellulitis Comment: chronic L lower leg 12/08/2021: COVID No date: Depression No date: Diabetes mellitus ([facility]) Comment: Type II, on insulin No date: Disease of blood and blood forming organ 11/25/2020: Endometrial carcinoma ([facility]) No date: Endometrial hyperplasia No date: Foot ulcer ([facility]) No date: Hx of blood clots Comment: RLE prior to amputation No date: Hyperlipidemia No date: Hypertension No date: Lymphedema No date: 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, RLE No date: Morbidly obese ([facility]) No date: Muscle weakness No date: Osteomyelitis ([facility]) 2019: Osteomyelitis ([facility]) Comment: RLE No date: Other lack of coordination No date: Other specified soft tissue disorders No date: Other symbolic dysfunctions No date: Schizophrenia ([facility]) No date: Sleep apnea Comment: no CPAP [...] ST (T wave) deviation no longer present [facility] [id number] Note* Op Note - Sergio Sibley DO - 06/29/2023 8:19 AM EDT [facility] Name: Will Jacinto Procedure Date: 06/29/2023 8:19 AM Gender: Female Date of : 1965 Age: 57 Admit Type: Inpatient Note Status: Finalized Endoscopist: Sergio Sibley DO, [id number] Procedure: Upper GI endoscopy Indications: Chest pain [...] immediate complications. Procedure Code(s): --- Professional --- 46539, Esophagogastroduodenoscopy, flexible, transoral; diagnostic, including collection of specimen(s) by brushing or washing, when performed (separate procedure) --- Technical --- 05714, Esophagogastroduodenoscopy, flexible, transoral; diagnostic, including collection of specimen(s) by brushing or washing, when performed (separate procedure) Diagnosis Code(s): --- Professional --- R07.89, Other chest pain R11.2, Nausea with vomiting, unspecified --- Technical --- R07.89, Other chest pain R11.2, Nausea with vomiting, unspecified CPT copyright 2021 [employer]. All rights reserved. The codes documented in this report are preliminary and upon financial assistance advisor review may be revised to meet current compliance requirements. Attending Participation: I personally performed the entire procedure. Sergio Sibley DO 06/29/2023 10:29:14 AM This report has been signed electronically. Number of Addenda: 0 Note Initiated On: 06/29/2023 8:19 AM [address] [facility] [id number] Note* Op Note - Sergio Sibley DO - 06/29/2023 8:19 AM EDT [facility] Patient Name: Will Jacinto Procedure Date: 06/29/2023 8:19 AM Gender: Female Date of : 1965 Age: 57 Admit Type: Inpatient Note Status: Finalized Endoscopist: Sergio Sibley DO, [id number] Procedure: Upper GI endoscopy Indications: Chest pain [...] immediate complications. Procedure Code(s): --- Professional --- 67709, Esophagogastroduodenoscopy, flexible, transoral; diagnostic, including collection of specimen(s) by brushing or washing, when performed (separate procedure) --- Technical --- 39654, Esophagogastroduodenoscopy, flexible, transoral; diagnostic, including collection of specimen(s) by brushing or washing, when performed (separate procedure) Diagnosis Code(s): --- Professional --- R07.89, Other chest pain R11.2, Nausea with vomiting, unspecified --- Technical --- R07.89, Other chest pain R11.2, Nausea with vomiting, unspecified CPT copyright 2021 [employer]. All rights reserved. The codes documented in this report are preliminary and upon financial assistance advisor review may be revised to meet current compliance requirements. Attending Participation: I personally performed the entire procedure. Sergio Sibley DO 06/29/2023 10:29:14 AM This report has been signed electronically. Number of Addenda: 0 Note Initiated On: 06/29/2023 8:19 AM [facility] [id number] Consult note* Sergio Sibley DO - 06/28/2023 [...] side (HCC) Anxiety disorder Bipolar 1 disorder ([facility]) Blood circulation, collateral Cellulitis chronic L lower leg COVID 12/08/2021 Depression Diabetes mellitus ([facility]) Type II, on insulin Disease of blood [...] before lunch/285 units before dinner Lactobacillus Acid-Pectin (Acidophilus/Madera Pectin) tablet 1 tablet, Oral, 2 times [...] tablet 40 mg, 40 mg, Oral, q24h, Nabli M Esterle, DO, 40 mg at 06/28/23 [...] % infusion, 75 mL/hr, IntraVENous, Continuous, Nabil Gilliam Esterle, DO, Last Rate: 75 mL/hr at [...] by Sergio Sibley DO 06/28/2023 11:59 AM [email or web address] Phone: [phone]) 784-199408-21-2023 Consult note* Sergio Sibley DO - 06/28/2023 [...] lower leg COVID 12/08/2021 Depression Diabetes mellitus ([facility]) Type II, on insulin Disease of blood [...] before lunch/285 units before dinner Lactobacillus Acid-Pectin (Acidophilus/Madera Pectin) tablet 1 tablet, Oral, 2 times [...] Consult: Dr. Hill PCP: Jared Guzman Outpt Sales And Marketing Assistant: Dr. Jesus spear endo ASSESSMENT: DM 2 [...] 10%-15% lower than serum/plasma values. (CLIA ID [id number]) 12/23/2021 07:28 AM 107 (H) 70 - 100 mg/dL Final Comment: Test performed by glucose meter. Results may be 10%-15% lower than serum/plasma values. (CLIA ID [id number]) 11/28/2020 04:54 PM 111 (H) 70 - 100 mg/dL Final Comment: Test performed by glucose meter. Results may be 10%-15% lower than serum/plasma values. (CLIA ID [id number]) 11/28/2020 10:18 AM 166 (H) 70 - 100 mg/dL Final Comment: Test performed by glucose meter. Results may be 10%-15% lower than serum/plasma values. (CLIA ID [id number]) 11/28/2020 07:57 AM 215 (H) 70 - 100 mg/dL Final Comment: Test performed by glucose meter. Results may be 10%-15% lower than serum/plasma values. (CLIA ID [id number]) 11/27/2020 09:08 PM 91 70 - 100 mg/dL Final Comment: Test performed by glucose meter. Results may be 10%-15% lower than serum/plasma values. (CLIA ID [id number]) Review of Systems Constitutional: Positive for appetite [...] before lunch/285 units before dinner Lactobacillus Acid-Pectin (Acidophilus/Madera Pectin) tablet 1 tablet, Oral, 2 times [...] found for: CHOLHDLRATIO No results found for: [id number] Lab Results Component Value Date TSH 2.356 11/26/2020 Radiology reportsas per the Radiologist Radiology: ECG 12 lead Result Date: 06/28/2023 Sinus tachycardia Nonspecific IVCD with LAD Left ventricular hypertrophy Minimal ST elevation, anterolateral leads Electronically Signed On 06-28-2023 5:20:13 [address]T [address] Rosaura Must[address] CT chest angiogram w and/or wo IV contrast Result Date: 06/28/2023 [facility] 1965 [id number] Exam Date/Time: 06/28/2023 03:49 Procedure: CT CHEST [...] 06/28/2023 Patient Name: WILL JACINTO : 1965 [facility]#: [id number] Exam Date/Time: 06/28/2023 03:08 Procedure: XR CHEST [...] AM EDTAssociated Order(s): IP CONSULT TO CARDIOLOGY [facility] CARDIOLOGY CONS[facility]ATION Patient Name: Will Jacinto [...] (AUB), Above knee amputation of right lowerextremity ([facility]), Acquired absence of other toe(s), unspecified side ([facility]), Anxiety disorder, Bipolar 1 disorder ([facility]), Blood circulation, collateral, Cellulitis, COVID (12/08/2021), Depression, Diabetes mellitus ([facility]), Disease of blood and blood forming organ, Endometrial carcinoma ([facility]) (11/25/2020), Endometrial hyperplasia, Foot ulcer ([facility]), blood clots, Hyperlipidemia, Hypertension, Lymphedema,MDRO (multiple drug resistant organisms) resistance, Morbidly obese ([facility]), Muscle weakness, Osteomyelitis ([facility]), Osteomyelitis ([facility]) (2018), Other lack of coordination, Other specified soft tissue disorders, Other symbolic dysfunctions, Schizophrenia ([facility]), Sleep apnea, and Venous insufficiency. He has no past medical history of Arthritis, Asthma, CAD (coronary artery disease), Cerebral arteryocclusion with cerebral infarction ([facility]), CHF (congestive heart failure) ([facility]) ([facility]), Chronic kidney disease, COPD (chronic obstructive pulmonary disease) ([facility]), GERD (gastroesophageal reflux disease), Hemodialysis patient ([facility]) ([facility]), History of blood transfusion, Liver disease, Movement disorder, Neuromuscular disorder ([facility]), Other disorders of kidney and ureter in diseases classified elsewhere, Pneumonia, Seizures ([facility]), or Thyroid disease. SurgicalHistory: has a past surgical history that includes [place] tooth extraction; Dilation and curettage of uterus(05/18/2019); [...] units before dinner Historical Provider, Lactobacillus Acid-Pectin (Acidophilus/Madera Pectin) tablet Take 1 tablet by mouth [...] acute infiltrate or effusion. documented in this [facility]08-21-2023 Consult note* Geronimo Lee MD - [...] Consult: Dr. Hill PCP: Jared Guzman Outpt Sales And Marketing Assistant: Dr. [place] [facility] [place] ASSESSMENT: DM 2 poor control Cheat [...] 10%-15% lower than serum/plasma values. (CLIA ID [id number]) 12/23/2021 07:28 AM 107 (H) 70 - 100 mg/dL Final Comment: Test performed by glucose meter. Results may be 10%-15% lower than serum/plasma values. (CLIA ID [id number]) 11/28/2020 04:54 PM 111 (H) 70 - 100 mg/dL Final Comment: Test performed by glucose meter. Results may be 10%-15% lower than serum/plasma values. (CLIA ID [id number]) 11/28/2020 10:18 AM 166 (H) 70 - 100 mg/dL Final Comment: Test performed by glucose meter. Results may be 10%-15% lower than serum/plasma values. (CLIA ID [id number]) 11/28/2020 07:57 AM 215 (H) 70 - 100 mg/dL Final Comment: Test performed by glucose meter. Results may be 10%-15% lower than serum/plasma values. (CLIA ID [id number]) 11/27/2020 09:08 PM 91 70 - 100 mg/dL Final Comment: Test performed by glucose meter. Results may be 10%-15% lower than serum/plasma values. (CLIA ID [id number]) Review of Systems Constitutional: Positive for appetite [...] before lunch/285 units before dinner Lactobacillus Acid-Pectin (Acidophilus/Madera Pectin) tablet 1 tablet, Oral, 2 times [...] found for: CHOLHDLRATIO No results found for: [id number] Lab Results Component Value Date TSH 2.356 11/26/2020 Radiology reportsas per the Radiologist Radiology: ECG 12 lead Result Date: 06/28/2023 Sinus tachycardia Nonspecific IVCD with LAD Left ventricular hypertrophy Minimal ST elevation, anterolateral leads Electronically Signed On 06-28-2023 5:20:13 EDT by Rosaura Mustafa CT chest angiogram w and/or wo IV contrast Result Date: 06/28/2023 Patient Name: WILL JACINTO : 1965 [facility]#: [id number] Exam Date/Time: 06/28/2023 03:49 Procedure: CT CHEST [...] side (HCC) Anxiety disorder Bipolar 1 disorder ([facility]) Blood circulation, collateral Cellulitis chronic L lower leg COVID 12/08/2021 Depression Diabetes mellitus ([facility]) Type II, on insulin Disease of blood and blood forming organ Endometrial carcinoma ([facility]) 11/25/2020 Endometrial hyperplasia Foot ulcer ([facility]) Hx of blood clots RLE prior to amputation Hyperlipidemia Hypertension Lymphedema MDRO (multiple drug resistant organisms) resistance hx CRE and MRSA in 2018, RLE Morbidly obese ([facility]) Muscle weakness Osteomyelitis ([facility]) Osteomyelitis ([facility]) 2019 RLE Other lack of coordination Other specified soft tissue disorders Other symbolic dysfunctions Schizophrenia ([facility]) Sleep apnea no CPAP Venous insufficiency Past [...] state/prognosis on the date of this note. [employer] Phone: 1(700) 935-515808-21-2023 Note* Care Coordination - Herber Armando RN - 06/28/2023 10:12 AM EDT Care Managment Initial Assessment Date: 06/28/2023 Patient Name: Will Jacinto : 1965 Patient Information Source of Information: Patient Cognition/Language: WFL - Within Functional Limits Permission given to speak with patient patient access representative/caregiver as indicated: Yes (Jovana Quesada ([facility]) [phone]) Confirmation of Payer with patient/family: Yes Payer Name: [facility] [place] : No Confirmation of Primary Care Physician: [...] Number of Entry Steps: Bed/Bath Levels: Facility: [facility] Facility Name: [facility] Plan to Return: Yes Lives [...] expects to be discharged to: Back to [facility]. Discharge Planning Actions: Continue to [...] R bka, is wheelchair bound. Lives at [facility] and plans to return. Cardiology consulted. Task sent to [facility] return referral to [facility]. TCC will continue to follow. Herber Armando RN [id number] Note* Care Coordination - Herber Armando RN - 06/28/2023 10:12 AM EDT Care Managment Initial Assessment Date: 06/28/2023 Patient Name: Will Jacinto : 1965 Patient Information Source of Information: Patient Cognition/Language: WFL - Within Functional Limits Permission given to speak with patient patient access representative/caregiver as indicated: Yes (Jovana Quesada ([facility]) [phone]) Confirmation of Payer with patient/family: Yes Payer Name: [facility] [place]: No Confirmation of Primary Care Physician: Confirmed [...] Number of Entry Steps: Bed/Bath Levels: Facility: [facility] Facility Name: [facility] Plan to Return: Yes Lives [...] expects to be discharged to: Back to [facility]. Discharge Planning Actions: Continue to [...] R bka, is wheelchair bound. Lives at [facility] and plans to return. Cardiology consulted. Task sent to [facility] via [facility] to [facility] return referral to [facility]. TCC will continue to follow. Herber Armando RN [facility] [id number] Consult note* Supriya Baeza MD - 06/28/2023 9:16 AM EDT Associated Order(s): IP CONSULT TO CARDIOLOGY [facility] CARDIOLOGY CONSULTATION Patient Name: Will Jacinto [...] (AUB), Above knee amputation of right lowerextremity ([facility]), Acquired absence of other toe(s), unspecified side ([facility]), Anxiety disorder, Bipolar 1 disorder ([facility]), Blood circulation, collateral, Cellulitis, COVID (12/08/2021), Depression, Diabetes mellitus ([facility]), Disease of blood and blood forming organ, Endometrial carcinoma ([facility]) (11/25/2020), Endometrial hyperplasia, Foot ulcer ([facility]), blood clots, Hyperlipidemia, Hypertension, Lymphedema,MDRO (multiple drug resistant organisms) resistance, Morbidly obese ([facility]), Muscle weakness, Osteomyelitis ([facility]), Osteomyelitis (HCC) (2018), Other lack of coordination, Other specified soft tissue disorders, Other symbolic dysfunctions, Schizophrenia ([facility]), Sleep apnea, and Venous insufficiency. He has no past medical history of Arthritis, Asthma, CAD (coronary artery disease), Cerebral arteryocclusion with cerebral infarction ([facility]), CHF (congestive heart failure) ([facility]) ([facility]), Chronic kidney disease, COPD (chronic obstructive pulmonary disease) ([facility]), GERD (gastroesophageal reflux disease), Hemodialysis patient ([facility]) ([facility]), History of blood transfusion, Liver disease, Movement disorder, Neuromuscular disorder ([facility]), Other disorders of kidney and ureter in diseases classified elsewhere, Pneumonia, Seizures ([facility]), or Thyroid disease. SurgicalHistory: has a past surgical history that includes [place] tooth extraction; Dilation and curettage of uterus(05/18/2019); [...] units before dinner Historical Provider, Lactobacillus Acid-Pectin (Acidophilus/Madera Pectin) tablet Take 1 tablet by mouth [...] lung volumes. No acute infiltrate or effusion. [employer] Phone: 1([phone]) 294-704508-21-2023 History and physical note* Nabil Hill, - [...] Acquired absence of other toe(s), unspecified side ([facility]) Anxiety disorder Bipolar 1 disorder ([facility]) Blood circulation, collateral Cellulitis chronic L lower leg COVID 12/08/2021 Depression Diabetes mellitus ([facility]) Type II, on insulin Disease of blood and blood forming organ Endometrial carcinoma ([facility]) 11/25/2020 Endometrial hyperplasia Foot ulcer ([facility]) Hx of blood clots RLE prior to amputation Hyperlipidemia Hypertension Lymphedema MDRO (multiple drug resistant organisms) resistance hx CRE and MRSA in 2018, RLE Morbidly obese ([facility]) Muscle weakness Osteomyelitis ([facility]) Osteomyelitis ([facility]) 2019 RLE Other lack of coordination Other specified soft tissue disorders Other symbolic dysfunctions Schizophrenia ([facility]) Sleep apnea no CPAP Venous insufficiency Past [...] before lunch/285 units before dinner Lactobacillus Acid-Pectin (Acidophilus/[place]era Pectin) tablet Take 1 tablet by mouth [...] trops NABIL HILL DO 06/28/23 8:[address] [facility] [id number] History and physical note* Nabil Hill DO [...] side (HCC) Anxiety disorder Bipolar 1 disorder ([facility]) Blood circulation, collateral Cellulitis chronic L lower leg COVID 12/08/2021 Depression Diabetes mellitus ([facility]) Type II, on insulin Disease of blood and blood forming organ Endometrial carcinoma ([facility]) 11/25/2020 Endometrial hyperplasia Foot ulcer ([facility]) Hx of blood clots RLE prior to amputation Hyperlipidemia Hypertension Lymphedema MDRO (multiple drug resistant organisms) resistance hx CRE and MRSA in 2018, RLE Morbidly obese ([facility]) Muscle weakness Osteomyelitis (HCC) Osteomyelitis ([facility]) 2019 RLE Other lack of coordination Other specified soft tissue disorders Other symbolic dysfunctions Schizophrenia ([facility]) Sleep apnea no CPAP Venous insufficiency Past [...] before lunch/285 units before dinner Lactobacillus Acid-Pectin (Acidophilus/Madera Pectin) tablet Take 1 tablet by mouth [...] hyperglycemia, with long-term current use of insulin ([facility]/HCC) (HCC) Hyperglycemia Post-menopausal bleeding Morbid obesity (HCC) Left leg cellulitis Diabetic foot infection ([facility]) S/P AKA (above knee amputation) unilateral, right ([facility]) Class 3 severe obesity due to excess calories with serious comorbidity and body mass index (BMI) of60.0 to 69.9 in adult ([facility]) Chest pain Chest pain Nausea and vomiting DM 2 Morbid obesity HPL HTN Plan Admit to tele Consult cardio Consult endo Consult gi Clears and ivf for now Serial trops NABIL HILL DO 06/28/23 8:[address] in this [facility]08-21-2023 Note* Significant Event - Ramsey Mc MD - 06/28/2023 7:59 AM EDT Patient was referred to the [facility] service for admission but his primary care physician is covered by Dr. Hill. Dr. Hill will see and admit. Attending changed to Dr. Hill. [email or web address] Phone: 1(730) 967-300208-21-2023 Note* Significant Event - Ramsey Mc MD - 06/28/2023 7:59 AM EDT Patient was referred to the [facility] service for admission but his primary care physician is covered by Dr. Hill. Dr. Hill will see and admit. Attending changed to Dr. Hill. [email or web address] Phone: 1(384) 726-439308-21-2023 NoteSuboptimal opacification of the pulmonary arteries. This [...] Electronically Signed Date/Time: 06/28/2023 4:37 AM [facility] RADIOLOGY [id number] Emergency department Note* Dalila Mendes RN - 06/28/2023 2:14 AM EDT Bed: 33 Expected date: Expected time: Means of arrival: Comments: EMS Dalila Mendes RN 06/28/[address] [address] [id number] Emergency department Note* Rosaura Mustafa DO - [...] Response: Oriented Best Motor Response: Follows commands [place] Coma Scale Score: 15 HEART Score History: [...] Pt presents to ED via EMS from [facility]. Pt is experiencing chest pain that started before midnight. Pt has also been vomiting today. Pt denies hx of VT. * Dalila Mendes RN - 06/28/2023 2:14 AM EDT Bed: 33 Expected date: Expected time: Means of arrival: Comments: EMS Dalila Meneds RN 06/28/[address] [facility]08-21-2023 Emergency department Triage note* Melissa Sosa RN - 06/28/2023 2:14 AM EDT Pt presents to ED via EMS from [facility]. Pt is experiencing chest pain that started before midnight. Pt has also been vomiting today. Pt denies hx of VT. [facility] [id number] Physician Emergency department Note* Rosaura Mustafa DO [...] Alcohol use: No Drug use: Never SCREENINGS [place] Coma Scale Best Eye Response: Spontaneous Best [...] Medicine Provider Rosaura Mustafa DO 06/28/23 0523 [place] [id number] Telephone encounter Note* Telephone Encounter - Radha Busby MA - 06/23/2023 8:22 AM EDT [facility] and spoke with nurse minesh. I relayed the message below and she verbalized understanding. [id number] Miscellaneous Notes* Telephone Encounter - Radha Busby MA - 06/23/2023 8:22 AM EDT [facility] and spoke with nurse minesh. I relayed the message below and she verbalized understanding. * Telephone Encounter - Geronimo Lee MD - 06/22/2023 4:43 PM EDT Keep doses the same for now thank you * Telephone Encounter - Jackson Pratt - 06/22/2023 3:35 PM EDT Images from the original note were not included. Patient BGL documented in this encounterSVeterans Health [id number] Telephone encounter Note* Telephone Encounter - Geronimo Lee MD - 06/22/2023 4:43 PM EDT Keep doses the same for now thank you [facility] [employer] Phone: 1(292) 503-989108-15-2023 Telephone encounter Note* Telephone Encounter - Jackson Pratt - 06/22/2023 3:35 PM EDT Images from the original note were not included. Patient BGL [facility] [id number] Telephone encounter Note* Telephone Encounter - Idalmis Rodriguez MA - 05/18/2023 11:32 AM EDT Called patient and left message stating there is no changes at this time. [id number] Miscellaneous Notes* Telephone Encounter - Idalmis Rodriguez [...] not included. Patient BGL documented in this encounterSVeterans Health [id number] Telephone encounter Note* Telephone Encounter - Geronimo Lee MD - 05/17/2023 4:48 PM EDT Keep doses the same increased trulicity already [facility] Phone: [phone]) 438-249807-10-2023 Telephone encounter Note* Telephone Encounter - Jackson Pratt - 05/17/2023 3:35 PM EDT Images from the original note were not included. Patient BGL [facility] [id number] Note* Addendum Note - Radha Busby MA - 05/07/2023 10:05 AM EDTAddended by: RADHA BUSBY on: 05/07/2023 10:05 AM Modules accepted: Orders [facility] [id number] Miscellaneous Notes* Addendum Note - Radha Busby MA - 05/07/2023 10:05 AM EDTAddended by: RADHA BUSBY on: 05/07/2023 10:05 AM Modules accepted: Orders * Telephone Encounter - Radha Busby MA - 05/07/2023 10:04 AM EDT Called [facility] and spoke with nurse don. I relayed [...] not included. Patient BGL documented in this encounterSVeterans Health Ad[id number] Telephone encounter Note* Telephone Encounter - Radha Busby MA - 05/07/2023 10:04 AM EDT Called [facility] and spoke with nurse don. I relayed the message below and she verbalized understanding. Med req updated. [facility] [id number] Telephone encounter Note* Telephone Encounter - Geronimo Lee MD - 05/06/2023 11:19 AM EDT Please increase trulicity to 4.5 mg weekly thank you [facility] Work Phone: [phone]) 870-679506-29-2023 Miscellaneous Notes* Telephone Encounter - Geronimo Lee [...] not included. Patient BGL documented in this [facility]06-29-2023 Telephone encounter Note* Telephone Encounter - Radha Busby MA - 05/06/2023 10:18 AM EDT Patient is currently taking Humulin R u500 (285 units before breakfast/260 units before lunch/285 units before dinner) Trulicity 3mg weekly [facility] [id number] Telephone encounter Note* Telephone Encounter - Geronimo Lee MD - 05/05/2023 4:27 PM EDT Please confirm current insulin doses thank you [facility] [id number] Telephone encounter Note* Telephone Encounter - Jackson Pratt - 05/05/2023 3:27 PM EDT Images from the original note were not included. Patient BGL [facility] [id number] Hospital Discharge instructions* Discharge Instructions* Jocelyn Santos MD - 03/08/2023 3:59 PM EDT Return to the ED if you cannot tolerate fluids with the Reglan. * Attachments The following attachments cannot be sent through Care Everywhere. * Gastroparesis (Delayed Gastric Emptying) (Israeli) documented in this [facility]05-01-2023 Emergency department Note* Joellen Palmer RN - 03/08/2023 12:50 PM EDT Bed: 18 Expected date: Expected time: Means of arrival: Comments: Physicians Joellen Palmer RN 03/08/[address] [facility] [id number] Emergency department Note* Karlos Osborn DO - 03/08/2023 12:50 PM EDT Emergency Department Encounter [facility] ED Patient: Will Jacinto : 1965 Date [...] of a CMP which was relatively unremarkable, ddqvi-wm-hkzi glucose was 167, CBC was relatively unremarkable. [...] Palmer RN 03/08/[address] [facility]05-01-2023 Physician Emergency department Note* Karlos Osborn DO - 03/08/2023 12:50 PM EDT Emergency Department Encounter [facility] ED Patient: Will Jacitno : 1965 Date of Evaluation: 03/08/2023 ED [...] of a CMP which was relatively unremarkable, ruprp-io-jayw glucose was 167, CBC was relatively unremarkable. [...] [employer] Karlos Osborn DO 03/08/23 1623 [email or web address] Phone: 1([phone]) 476-236104-24-2023 Telephone encounter Note* Telephone Encounter - Radha Busby MA - 03/01/2023 9:01 AM EDT Patient received message. [id number] Miscellaneous Notes* Telephone Encounter - Radha Busby [...] not included. Patient BGL documented in this encounterSVeterans Health [id number] Telephone encounter Note* Telephone Encounter - Radha Busby MA - 02/26/2023 1:39 PM EDT Called patient and left message to contact office. [id number] Miscellaneous Notes* Telephone Encounter - Radha Busby [...] not included. Patient BGL documented in this encounterSVeterans Health AdministrationRqorrr09-08-0894 Telephone encounter Note* Telephone Encounter - Geronimo Lee MD - 02/26/2023 11:18 AM EDT Increase morning u500 insulin dose by 25 units please thank you [facility] [id number] Telephone encounter Note* Telephone Encounter - Jackson Pratt - 02/25/2023 3:35 PM EDT Images from the original note were not included. Patient BGL [place] [id number] History of Present illness Narrative* Geronimo Lee MD - 02/09/2023 9:20 AM EDT . [facility]CRINOLOGY [facility] [address] [place] [address] Dept: [phone] Dept Visit type: Established patient Reason for Visit: Follow-up (DM2) Assessment and Plan 1. Type 2 diabetes mellitus with hyperglycemia, with long-term current use of insulin ([facility]) ([facility]) 2. Mixed hyperlipidemia 3. Primary hypertension No [...] underthe skin 3 times daily. Lactobacillus Acid-Pectin (Acidophilus/[place] Pectin) tablet Take 1 tablet by mouth [...] side (HCC) Anxiety disorder Bipolar 1 disorder ([facility]) Blood circulation, collateral Cellulitis chronic L lower leg COVID 12/08/2021 Depression Diabetes mellitus ([facility]) Type II, on insulin Disease of blood and blood forming organ Endometrial carcinoma (HCC) 11/25/2020 Endometrial hyperplasia Foot ulcer ([facility]) Hx of blood clots RLE prior to amputation Hyperlipidemia Hypertension Lymphedema MDRO (multiple drug resistant organisms) resistance hx CRE and MRSA in 2018, RLE Morbidly obese ([facility]) Muscle weakness Osteomyelitis (HCC) Osteomyelitis (HCC) 2019 RLE Other lack of coordination Other specified soft tissue disorders Other symbolic dysfunctions Schizophrenia ([facility]) Sleep apnea no CPAP Venous insufficiency Social [...] 1.25 mg/dL 0.73 EGFR >60 mL/min >90.0 [facility] EGFR IF NONAFRICAN HONG KONGER >60 mL/min >90.0 GLUCOSE 70 - 100 mg/dL 119 (H) CALCIUM 8.4 - 10.4 mg/dL 9.4 (H): Data is abnormally high Latest Reference Range & Units 08/29/20 00:00 11/23/20 03:51 07/20/22 00:00 HEMOGLOBIN A1C 5.7 % 9.9 10.0 ! 10.1 ! (E) !: Data is abnormal (E): External lab result Imaging/Testing: Geronimo Lee MD documented in this [facility]01-21-2021 NoteHospitalist Discharge Summary Will Jacinto : [...] transgender male, biologically female, presented from his [facility] after abdominal pain, out of control glucose readings and reported mental status change. However, EMS in the hospital reported that he was alert and oriented x3, however, he says that recently he has had increasing abdominal distention and distress and he noticed that his glucoses have been harder and harder to control. Pt was admitted to [facility]. Pt had dysfunctinal uterine bleeding and transferred to [facility] for [facility] eval. Also had ab pain and found to have ileus. Seen by GI and recommended reglan. Pt had BMs. abd pain better. Advance diet to GI soft Seen by [facility] and had hysteroscopy with biopsy done KUB [...] 08/23/2020 No results found for: PHART, PO2ART, [id number] No results for input(s): INR in the [...] Radiology ACCESSION EXAM DATE/TIME PROCEDURE ORDERING PROVIDER [id number] 11/27/2020 08:28 EST CR Abdomen AP MD MARTIN KHALED CPT code 10981 Reason For Exam (CR Abdomen AP) ileus Report ABDOMEN -1 VIEW: CLINICAL INDICATION: Ileus TECHNIQUE: 1 view of abdomen and pelvis COMPARISON: November 25, 2020 FINDINGS: Overall interval decrease in the amount of large and small bowel gas, which is in a nonobstructed pattern. No abnormal soft tissue calcifications are identified. Multilevel thoracolumbar degenerative change. IMP (more content not included)...[facility] SystemEvaluation noteNo assessment information availableWWilson Memorial Hospital Work Phone: Evaluation note* Diagnosis Dental caries- Primary Unspecified dental caries [facility] Diagnosis Type 2 diabetes mellitus with hyperglycemia, with long-term current use of insulin ([facility]) ([facility])- Primary Mixed hyperlipidemia Primary hypertension Unspecified essential hypertension [facility]* Diagnosis Abdominal pain, generalized- Primary Gastroparesis documented in this encounter [facility]* Diagnosis Chest pain, unspecified type Chest pain, unspecified type documented in this encounter [facility]* Diagnosis Pyelonephritis- Primary Unspecified pyelonephritis Upper abdominal pain Nausea Nausea alone [facility]* Diagnosis Upper abdominal pain- Primary Upper abdominal pain Hypoglycemia Hypoglycemia, unspecified Abdominal pain Abdominal pain, unspecified site documented in this encounter [facility]* Diagnosis Hypoglycemia due to insulin- Primary Hypoglycemia Hypoglycemia, unspecified Hypothermia, initial encounter Altered mental status, unspecified altered mental status type MCC (current) use of antibiotics Hypothermia, not associated with low environmental temperature Diabetic gastroparesis associated with type 2 diabetes mellitus ([facility]) ([facility]) Type II or unspecified type diabetes mellitus with neurological manifestations, not stated as uncontrolled Type 2 diabetes mellitus with hyperglycemia, with long-term current use of insulin ([facility]) Class 3 severe obesity due to excess calories with serious comorbidity and body mass index (BMI) of 60.0 to 69.9 in adult ([facility]) Acinetobacter lwoffi infection Infection due to other gram-negative organisms in conditions classified elsewhere and of unspecified site Bacteremia due to Gram-negative bacteria Sepsis without acute organ dysfunction ([facility]) documented in this encounter [facility]* Diagnosis Type 2 diabetes mellitus with hyperglycemia, with long-term current use of insulin ([facility])- Primary Mixed hyperlipidemia Primary hypertension Unspecified essential hypertension documented in this encounter [facility]* Diagnosis Nausea vomiting and diarrhea- Primary Dehydration documented in this encounter [facility]* Diagnosis Nausea with vomiting, unspecified documented in this [facility]* Diagnosis Nausea and vomiting, unspecified vomiting type- Primary documented in this encounter [facility]* Diagnosis Nausea and vomiting, unspecified vomiting type- Primary Cystitis Unspecified cystitis documented in this encounter [facility]* Diagnosis Hypoglycemia- Primary Hypoglycemia, unspecified documented [facility] this [facility]* Diagnosis Nausea with vomiting, unspecified- Primary Nausea with vomiting, unspecified documented in this encounter [facility] HealthEvaluation note* Diagnosis Lung nodule- Primary Other diseases of lung, not elsewhere classified JOHN (obstructive sleep apnea) Obstructive sleep apnea (adult) (pediatric) Morbid obesity with BMI of 45.0-49.9, adult ([facility]) documented in this encounter [facility]* Diagnosis Solitary pulmonary nodule- Primary documented in this encounter [facility]* Diagnosis Acute cholecystitis- Primary Acute cholecystitis documented in this encounter [facility]* Diagnosis Hypoglycemic episode in patient with diabetes mellitus (HCC)- Primary documented in this encounter [facility]* Diagnosis Cholecystitis- Primary Cholecystitis, unspecified documented in this [facility]* Diagnosis History of cholecystitis- Primary documented [facility] this [facility]* Diagnosis Cholecystitis- Primary Cholecystitis, unspecified documented [facility]* Diagnosis Cholecystitis- Primary Cholecystitis, unspecified Morbid obesity ([facility]) Morbid obesity Class 3 severe obesity with serious comorbidity and body mass index (BMI) of 50.0 to 59.9 in adult, unspecified obesity type (HCC) documented in this encounter [facility] note* Diagnosis Fecal occult blood test positive- Primary History of anemia Personal history of diseases of blood and blood-forming organs Calculus of gallbladder without cholecystitis without obstruction BMI 50.0-59.9, adult ([facility]) [facility]* Diagnosis Type 2 diabetes mellitus with hyperglycemia, with long-term current use of insulin ([facility])- Primary Type 2 diabetes mellitus with diabetic autonomic neuropathy, with long-term current use of insulin ([facility]) Microalbuminuria Proteinuria Essential hypertension Unspecified essential hypertension Mixed hyperlipidemia Class 3 severe obesity due to excess calories with serious comorbidity and body mass index (BMI) of 45.0 to 49.9 in adult ([facility]) Other fecal abnormalities Personal history of diseases of the blood and blood-forming organs and certain disorders involving the immune mechanism Calculus of gallbladder without cholecystitis without obstruction Body mass index (BMI) 50.0-59.9, adult ([facility]) documented in this encounter [facility] note* Diagnosis PAD (peripheral artery disease) ([facility])- Primary Unspecified peripheral vascular disease Hx of AKA (above knee amputation), right ([facility]) Lymphedema of left leg Morbid obesity ([facility]) Morbid obesity Other fecal abnormalities Personal history of diseases of the blood and blood-forming organs and certain disorders involving the immune mechanism Calculus of gallbladder without cholecystitis without obstruction Body mass index (BMI) 50.0-59.9, adult ([facility]) documented in this encounter [facility] note* Diagnosis PAD (peripheral artery disease) ([facility]) Unspecified peripheral vascular disease Other fecal abnormalities Personal history of diseases of the blood and blood-forming organs and certain disorders involving the immune mechanism Calculus of gallbladder without cholecystitis without obstruction Body mass index (BMI) 50.0-59.9, adult ([facility]) documented in this encounter [facility] note* Diagnosis Type 2 diabetes mellitus with hyperglycemia, with long-term current use of insulin ([facility])- Primary Type 2 diabetes mellitus with diabetic autonomic neuropathy, with long-term current use of insulin ([facility]) Hypertension associated with type 2 diabetes mellitus ([facility]) Mixed diabetic hyperlipidemia associated with type 2 diabetes mellitus ([facility]) Class 3 severe obesity due to excess calories with serious comorbidity and body mass index (BMI) of 45.0 to 49.9 in adult Microalbuminuria Proteinuria Other fecal abnormalities Personal history of diseases of the blood and blood-forming organs and certain disorders involving the immune mechanism Calculus of gallbladder without cholecystitis without obstruction Body mass index (BMI) 50.0-59.9, adult ([facility]) documented in this encounter [facility] note* Diagnosis Acute nonintractable headache, unspecified headache type- Primary Nausea Nausea alone Acute cystitis without hematuria Hyperglycemia Other abnormal glucose documented in this encounter [facility] note* Diagnosis Type 2 diabetes mellitus with hyperglycemia, with long-term current use of insulin ([facility])- Primary Insulin resistance Other abnormal glucose Type 2 diabetes mellitus with peripheral neuropathy ([facility]) Type 2 diabetes mellitus with albuminuria ([facility]) ([facility]) (HCC) Hypertension associated with type 2 diabetes mellitus ([facility]) Type 2 diabetes mellitus with hyperlipidemia ([facility]) ([facility]) documented in this encounter [facility] Discharge instructions* Attachments The following attachments cannot be sent through Care Everywhere. * Kidney Infection Discharge Instructions (Israeli) documented in this [facility] Discharge instructions* Attachments The following attachments cannot be sent through Care Everywhere. * Acute Cystitis Discharge Instructions (Israeli) * Nausea and Vomiting, Adult ED (Israeli) documented in this [facility] Discharge instructions* Attachments The following attachments cannot be sent through Care Everywhere. * Upper GI Endoscopy Discharge Instructions (Israeli) documented in this [facility] for referral (narrative)No reason for referral information availableWWilson Memorial Hospital Work Phone: Reason for visit Narrative* Imaging (Routine) - Closed Specialty Diagnoses / Procedures [facility] To Contact Cardiology Diagnoses PAD (peripheral artery disease) ([facility]) Procedures Vascular US lower extremity arterial PVR Alejandro Mandel, JEREMY - CLINICAL TRIALS SPECIALIST [address] [facility] [address] [place] [id number] Phone: tel: fax: Referral ID Status Reason Start Date Expiration Date Visits Re quested Visits Authorized [id number] Closed 02/01/2025 02/01/2026 1 1 [facility] for visit Narrative* Auth/Cert (Routine) Specialty Diagnoses / Procedures Referred By [facility] Referred To Contact Diagnoses Other fecal abnormalities Personal history of diseases of the blood and blood-forming organs and certain disorders involving the immune mechanism Calculus of gallbladder without cholecystitis without obstruction Body mass index (BMI) 50.0-59.9, adult (HCC) Procedures [place] COLONOSCOPY FLX DX W/COLLJ SPEC WHEN PFRMD [place] ESOPHAGOGASTRODUODENOSCOPY TRANSORAL DIAGNOSTIC COLONOSCOPY ESOPHAGOGASTRODUODENOSCOPY, DIAGNOSTIC Farhad Chavez MD [address] [place] [address] Phone: tel: fax: [facility] [address] [place] [address] Phone: tel: Referral ID Status Reason Start Date Expiration Date Visits Re quested Visits Authorized 1 1 [facility] Health Summary Purpose Family History No Family History Records FoundNo Family History Records FoundNo Family History Records FoundNo Family History Records FoundNo Family History Records FoundNo Family History Records FoundNo Family History Records FoundNo Family History Records FoundNo Family History Records Found Advance Directives No Advanced Directives Records FoundDocuments on File Type Date Recorded Patient Pediatric Clinical Nurse Specialist Expl anation DNR (Do Not Resuscitate) 09/17/2020 Date Activated Date Inactivated Comments 12/31/2023 8:33 PM 01/11/2024 8:41 PM Date Activated Date Inactivated Comments 10/07/2023 4:58 PM 10/17/2023 2:13 AM Date Activated Date Inactivated Comments 08/17/2023 10:49 PM 08/19/2023 10:57 PM Date Activated Date Inactivated Comments 06/28/2023 8:48 AM 07/01/2023 4:24 PM Healthcare Agents on File Name Relationship Healthcare Agent [facility] Communication [facility] Care Agent Documents on File Type Date Recorded Patient Pediatric Clinical Nurse Specialist Expl anation Advance Directives and Living Will Power of School Aide Latest Code Status on File Code Status Date Activated Date Inactivated Comments Full Code 06/14/2019 6:51 PM 06/20/2019 9:23 PM Full Code 05/16/2019 6:59 PM 05/20/2019 11:51 PM Full Code 05/16/2019 8:10 AM 05/16/2019 9:40 AM Full Code 05/16/2019 6:16 AM 05/16/2019 8:09 AM Full Code 01/11/2019 10:40 PM 01/17/2019 5:31 PM Documents on File Type Date Recorded Patient Pediatric Clinical Nurse Specialist Expl anation ACP-Advance Directive ACP-Power of School Aide Latest Code Status on File Code Status Date Activated Date Inactivated Comments Full Code 09/18/2020 1:15 AM Full Code 06/14/2019 6:51 PM 06/20/2019 9:23 PM Documents on File Type Date Recorded Patient Pediatric Clinical Nurse Specialist Expl anation ACP-Advance Directive ACP-Power of School Aide DNR Documentation 10/01/2020 12:28 PM Latest Code [...] Documents on File Type Date Recorded Patient Pediatric Clinical Nurse Specialist Expl anation DNR (Do Not Resuscitate) 09/17/2020 [...] Agent Relationshi p Communication Jovana Quesada (POA) [facility] Documents on File Type Date Recorded Patient Pediatric Clinical Nurse Specialist Expl anation DNR (Do Not Resuscitate) 10/24/2024 12:44 PM DNR (Do Not Resuscitate) 09/17/2020 Healthcare Agents on File Name Relationship Healthcare Agent Jchi p Communication Jovana Quesada (POA) [facility] Agent Documents on File Type Date Recorded Patient Pediatric Clinical Nurse Specialist Expl anation DNR (Do Not Resuscitate) 2024 1:55 PM DNR (Do Not Resuscitate) 10/24/2024 12:44 PM DNR (Do Not Resuscitate) 09/17/2020 Documents on File Type Date Recorded Patient Pediatric Clinical Nurse Specialist Expl anation DNR (Do Not Resuscitate) 2024 [...] Documents on File Type Date Recorded Patient Pediatric Clinical Nurse Specialist Expl anation DNR (Do Not Resuscitate) 12/04/2024 [...] Documents on File Type Date Recorded Patient Pediatric Clinical Nurse Specialist Expl anation DNR (Do Not Resuscitate) 12/04/2024 [...] Agent Relationshi p Communication Jovana Quesada (POA) [facility] Agent Healthcare Agents on File Name Relationship Healthcare Agent Relationshi p Communication Jovana Quesada (POA) [facility] Health Care Agent Discharge Instructions * Attachments The following attachments cannot be sent through Care Everywhere. * Post-op Infection (Israeli) documented in this encounter* Instructions* Eva Awan RN - 01/02/2020 U500 Insulin: The physician managing your U500 insulin should give specific recommendations before your surgery. Please call the managing physician's office if you do not already have instructionsin regards to your insulin. Please bring your [employer] [facility] Information folder on the day of [...] sent through Care Everywhere. * Hysteroscopy: Pre-op (Israeli) * levonorgestrel intrauterine system (Israeli) documented in this encounter* Discharge Instr - [...] Hospital Unit/Room#: 268/2681 Discharging Unit Phone Number: [phone] Emergency Contact: Extended Emergency Contact Information Primary Emergency Contact: [facility] Mobile Relation: Other Secondary Emergency Contact: [...] index (BMI) of50.0 to 59.9 in adult ([facility]) E66.01, Z68.43 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 ([facility]) E11.51 Cellulitis and abscess of lower extremity L03.119, L02.419 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 Chronic acquired lymphedema I89.0 Left leg cellulitis L03.116 Class 3 severe obesity due to excess calories with serious comorbidity and body mass index (BMI) of60.0 to 69.9 in adult ([facility]) E66.01, Z68.44 Post-menopausal bleeding N95.0 Hyperglycemia R73.9 Diabetic foot infection ([facility]) E11.628, L08.9 S/P AKA (above knee amputation) unilateral, right ([facility]) Z89.611 Morbid obesity ([facility]) E66.01 Ileus ([facility]) K56.7 Isolation/Infection: Isolation Contact Patient Infection Status [...] Dependent Dressing Dependent Toileting Dependent Feeding Assisted Lighting Director Assisted Med Delivery none Wound Care Documentation [...] Discharging to Facility/ Agency Name: [facility] Address: [address] [place] [address] Dialysis Facility (if applicable) Name: Address: Dialysis Schedule: Phone: Fax: Car Servicer/Cut Off Machine Unloader signature: at11:40 AM EST PHYSICIAN SECTION Prognosis: Fair Condition at Discharge: Stable Rehab Potential (if transferring to Rehab): Fair Recommended Labs or Other Treatments After Discharge: none Physician Certification: I certify the above information and transfer of Will Jacinto is necessary for the continuing treatment of the diagnosis listed and that he requires Care Home Facility for greater 30 days. Update Admission H&P: No change in H&P PHYSICIAN SIGNATURE: * Additional Instructions* Анна Villela MD - 09/30/2020 Please fax BG logs to Dr. Lee at [phone] in 2 weeks. documented in this encounter* [...] Agent's Name Healthcare Agent's Phone Number 11/22/20 2307 No, patient does not have an advance directive for healthcare treatment -- -- -- -- -- Admitting Physician: Art Stapleton MD PCP: Jared Guzman MD Discharging Nurse: Bishnu [facility] Hospital Unit/Room#: 158/1581 Discharging Unit Emergency Contact: Extended Emergency Contact Information Primary Emergency Contact: [facility] Mobile Relation: Other Secondary Emergency Contact: QuesadaJovana [...] hyperglycemia, with long-term current use of insulin ([facility]) E11.65, Z79.4 Class 3 severe obesity due to excess calories with serious comorbidity and body mass index (BMI) of50.0 to 59.9 in adult ([facility]) E66.01, Z68.43 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 ([facility]) E11.51 Cellulitis and abscess of lower extremity L03.119, L02.419 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 Chronic acquired lymphedema I89.0 Left leg cellulitis L03.116 Class 3 severe obesity due to excess calories with serious comorbidity and body mass index (BMI) of60.0 to 69.9 in adult ([facility]) E66.01, Z68.44 Post-menopausal bleeding N95.0 Hyperglycemia R73.9 Diabetic foot infection ([facility]) E11.628, L08.9 S/P AKA (above knee amputation) unilateral, right ([facility]) Z89.611 Morbid obesity ([facility]) E66.01 Ileus ([facility]) K56.7 Nausea and vomiting R11.2 Esophagitis K20.90 Hypertension I10 Diabetic hyperosmolar non-ketotic state ([facility]) E11.00 Isolation/Infection: Isolation Contact Patient Infection Status [...] Assisted Dressing Assisted Toileting Assisted Feeding Assisted Lighting Director Assisted Med Delivery whole Wound Care Documentation [...] Discharging to Facility/ Agency Name: [facility] ([facility]) Address: [address] [place] [address] Dialysis Facility (if applicable) Name: Address: Dialysis Schedule: Phone: Fax: Car Servicer/Cut Off Machine Unloader signature: PHYSICIAN SECTION Prognosis: Good Condition at Discharge: Stable Rehab Potential (if transferring to Rehab): Good Recommended Labs or Other Treatments After Discharge: Physician Certification: I certify the above information and transfer of Will Jacinto is necessary for the continuing treatment of the diagnosis listed and that he requires Care Home Facility for less 30 days. Update Admission [...] MD Discharging Nurse: Nicolle Dischsue Hospital Unit/Room#: [id number] Discharging Unit Emergency Contact: Extended Emergency Contact Information Primary Emergency Contact: [facility] Mobile Relation: Other Secondary Emergency Contact: [...] List Diagnosis Code Cellulitis L03.90 Chronic osteomyelitis ([facility]) M86.60 Uncontrolled type 2 diabetes mellitus with complication ([facility]) E11.8, E11.65 Type 2 diabetes mellitus with hyperglycemia, with long-term current use of insulin ([facility]) E11.65, Z79.4 Class 3 severe obesity due to excess calories with serious comorbidity and body mass index (BMI) of50.0 to 59.9 in adult ([facility]) E66.01, Z68.43 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] (171.5 kg) Mental Status: {IP PT MENTAL STATUS:45412} IV Access: {[facility] [place]:[id number]} Nursing Mobility/ADLs: Walking Assisted Transfer Assisted Bathing Assisted Dressing Assisted Toileting Assisted Feeding Assisted Lighting Director Independent Med Delivery whole Wound Care Documentation [...] (for information only, NOT a DME order): {EQUIPMENT:[id number]} Other Treatments: Patient's personal belongings (please select all that are sent with patient): None RN SIGNATURE: MANAGEMENT/SOCIAL WORK SECTION Inpatient Status Date: 06/14/19 Readmission Risk Assessment Score: Readmission Risk Risk of Unplanned Readmission: 28 Discharging to Facility/ Agency Name: [facility] Address:[place] [address] Dialysis Facility (if applicable) Name: Address: Dialysis Schedule: Phone: Fax: Car Servicer/Cut Off Machine Unloader signature: {Esignature:[id number]} ICIAN SECTION Prognosis: Good Condition at Discharge: Stable Rehab Potential (if transferring to Rehab): Good Recommended Labs or Other Treatments After Discharge: Physician Certification: I certify the above information and transfer of Will Jacinto is necessary for the continuing treatment of the diagnosis listed and that he requires Care Home Facility for greater 30 days. Update Admission H&P: No change in H&P PHYSICIAN SIGNATURE: * Additional Instructions* Jarek Katz MD - 06/16/2019 Hzjmm-bbm-Dakn Leg Amputation: What to Expect at Home Your Recovery An fxinq-hrd-spkw amputation is surgery to remove your leg above the knee. Your doctor removed the leg while keeping as much healthy bone, skin, blood vessel, and nerve tissue as possible. After an cqqvp-nab-vdbm leg amputation, you will probably have bandages, [...] your doctor if you can take an vvyq-ojc-upguauk medicine. If you think your pain medicine [...] Where can you learn more? Go to [email or web address] and sign in to your [employer] account. Enter K761 in the Search Health Information box to learn more about Bvpwj-bgm-Cwen Leg Amputation: What to Expect at Home. If you do not have an account, please click on the "Sign Up Now" link. Current as of: July 28, 2018 Content Version: [id number] [employer]. Care instructions adapted under license by [employer]. If youhave questions about a medical condition or this instruction, always ask your healthcare professional. [employer] disclaims any warranty or liability for your [...] 1st attempt with 22 gauge needle at [facility]. Patient tolerated well, site benign. documented in this encounter* Valeria Calzada RN - 09/30/2020 6:43 PM EST Called report to Ninfa GUILLORY at [place] [place]. supply chain procurement manager is scheduled for 7:30PM Valeria Calzada * [...] Consult: Joann PCP: Jared Guzman MD Outpt Sales And Marketing Assistant: yes, JEROME Lee/Kedar ASSESSMENT: T2DM uncontrolled with [...] standpoint: Yes Home Going Endocrine Rx Recommendations-- L086spp 160-110-150 units TID before meals Outpt Follow [...] mouth every morning (before breakfast) 09/28/20 Yes Nabilwarren Hill, DO cyclobenzaprine (FLEXERIL) 10 MG tablet [...] units TID AC meals 08/28/20 Carito Thacker, SECURITY CONTROLS ASSESSOR - CLINICAL TRIALS SPECIALIST acetaminophen (TYLENOL) 325 MG tablet Take 650 [...] 10:07 AM EST Physical Therapy Facility/Department: [facility] 2E TELEMETRY Daily Treatment Note NAME: Will Jacinto : 1965 Date of Service: 09/30/2020 Chart review completed. Pt declined therapy this day. Pt stated that he wasn't felling up it and wanted to rest. This DIRECTOR OF UNDERGRADUATE ADMISSIONS encouraged pt to participate, pt still declined. I will re-attempt as schedule permits. Juwan Canales PTA * Valeria Calzada RN - 09/30/2020 9:39 AM EST 09/30/20 9:30 AM [phone] From: Valeria Calzada RE: WLIL ISSAELVIA 1965 Location: [facility] RM: [id number] is NPO for a procedure today. BS is 257, he is supposed to get 145u of the U-500. Would you likeme to still give? or hold with NPO status? Thank you Callback Required: NO CALLBACK REQ 2 [facility] ROUTINE Read 9:36 AM 09/30/20 9:37 [...] index (BMI) of50.0 to 59.9 in adult ([facility]) 09/27/2020 Yes Small vessel arterial disease due [...] index (BMI) of50.0 to 59.9 in adult ([facility]) Resolved Problems: Ileus (HCC)). Plan: Start/continue incentive [...] findings and my assessment and plan. SIGNATURE: Jgadeep Grace MD; FACC; FHRS; FASNC; CCDS. PATIENT NAME: Will Jacinto DATE: 09/30/2020 PAGER: [phone] * Jagdeep Grace MD - 09/29/2020 1:00 PM EST Progress Note Date:09/29/2020 Room:[address] [place] [address] Patient Name:Will Jacinto Date of :1965 Age:54 [...] PATIENT NAME: Will Jacinto DATE: 09/29/2020 PAGER: [phone] * Deborah Jha OTA - 09/29/2020 12:33 PM EST Occupational Therapy Facility/Department: [facility] 2E TELEMETRY Daily Treatment Note NAME: [...] Diagnosis(es): The primary encounter diagnosis was Ileus ([facility]). Diagnoses of Nausea and vomiting, intractability of vomiting not specified, unspecified vomiting type and Generalized abdominalpain were also pertinent to this visit. has a past medical history of Abnormal uterine bleeding (AUB), Above knee amputation of right lowerextremity ([facility]), Bipolar 1 disorder ([facility]), Blood circulation, collateral, Cellulitis, Depression, Diabetes mellitus ([facility]), Disease of blood and blood forming organ, Endometrial hyperplasia, Hx of blood clots, Hyperlipidemia, Hypertension, Lymphedema, MDRO (multiple drug resistant organisms) resistance, Morbidly obese ([facility]), Osteomyelitis ([facility]), Osteomyelitis ([facility]), Schizophrenia ([facility]), Sleep apnea, and Venous insufficiency. has a past surgical history that includes Abscess Drainage (Right, 09/09/2018); [place] tooth extraction; Dilation and curettage of uterus (05/18/2019); above knee amputation (Right, 06/16/2019); and Endoscopy, colon, diagnostic (09/19/2020). Restrictions Restrictions/Precautions Restrictions/Precautions: General Precautions, Fall Risk(Jamilah AVINASH, identifies as MALE "MARIA LUISA", tele, obese) [...] 2: Pt will complete BSC transfer at W with MIN A. Not attempted today Short [...] pen 145 Units 145 Units Subcutaneous QAM TANIA Garibay DO 145 Units at 09/29/20 0924 [...] BID Sergio Sibley, DO 40 mg at 09/29/20 0924 And sodium chloride (PF) 0.9 % injection 10 mL 10 mL Intravenous BID Sergio Sibley DO 10 mL at 09/28/20 2137 lactobacillus (CULTURELLE) capsule 1 capsule 1 capsule Oral Daily Nabil M Esterle, DO 1 capsule at 09/28/20 0957 ARIPiprazole (ABILIFY) tablet 10 mg 10 mg Oral Daily Nabil M Esterle, DO 10 mg at 09/29/20 0925 aspirin chewable tablet 81 mg 81 mg Oral Daily Nabil M Esterle, DO 81 mg at 09/29/20 0925 benzonatate (TESSALON) capsule 200 mg 200 mg [...] M Esterle, DO 40 mg at 09/29/20 0926 glucose (GLUTOSE) 40 % oral gel 15 [...] Jacinto : 1965 AGE: 54 y.o. Room/Bed: [address] [place] [address] Admission Date: 09/17/2020 7:46 PM Consult Date: 09/18/20 Visit Date: 09/29/2020 Reason for Endocrine Consult: DM mgmt Provider/Team Requesting Consult: Joann PCP: Jared Guzman MD Outpt Sales And Marketing Assistant: yes, SHMG Lee/Kedar ASSESSMENT: T2DM uncontrolled with [...] 60 gram limit no juice w/ trays Sales And Marketing Assistant On-Call: AGAPITO Preferred Method of Communication/Reaching: Momail. The above physician should be paged w/ questions/concerns about items being managed by Endocrinology Team. If there are any questions or concerns related to the info in this progress note please page the oncall accounting policy consultant directly. On-Call information can be found in the [facility] Online Directory. We can also be reached by Momail communication system. We appreciate the opportunity to participate in this pt's ongoing medical care. ANTICIPATED ENDOCRINE HOME GOING RECOMMENDATIONS: Optimized for Discharge from Endocrine standpoint: Yes Home Going Endocrine Rx Recommendations-- Current hosp [id number] insulin doses. Outpt Follow Up-- As scheduled. [...] 1 capsule by mouth daily 09/29/20 Yes Nabilwarren Hill, DO metoclopramide (REGLAN) 5 MG/ML injection Infuse 2 mLs intravenously every 6 hours 09/28/20 10/28/20 Yes Nabil Chika Hill, DO pantoprazole (PROTONIX) 40 MG tablet [...] units TID AC meals 08/28/20 Carito Thacker SECURITY CONTROLS ASSESSOR - CLINICAL TRIALS SPECIALIST acetaminophen (TYLENOL) 325 MG tablet Take 650 [...] Ordering Physician DO HILL LISA Accession Number [id number] CPT4 Codes 33243 () Reason For Exam ileus Report Clinical [...] w/ IV Contrast (IV Onl Ordering Physician [id number] SHEIKH Accession Number [id number] CPT4 Codes 91311 (CT Abdomen/Pelvis w/ IV Contrast (IV Onl), Q9967 (CT ISOVUE 370MG/ML&[id number]&ML&1) Reason For Exam abd pain/tenderness Report CT [...] hyperglycemia, with long-term current use of insulin ([facility]) 09/27/2020Yes Class 3 severe obesity due to excess calories with serious comorbidity and body mass index (BMI) of50.0 to 59.9 in adult ([facility]) 09/27/2020 Yes 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 ([facility]) 09/27/2020 Yes Chronic acquired lymphedema 09/27/2020 Yes [...] index (BMI) of50.0 to 59.9 in adult ([facility]) Resolved Problem: Ileus (HCC)). Plan: Start/continue incentive [...] PATIENT NAME: Will Jacinto DATE: 09/28/2020 PAGER: [phone] * Chris Muniz MD - 09/28/2020 9:18 [...] 4 mg 4 mg Intravenous Q6H PRN Klyah David MD 4 mg at 09/27/202002 metoprolol [...] M Esterle, DO 325 mg at 09/27/20 172 FLUoxetine (PROZAC) capsule 40 mg 40 mg [...] 650 mg 650 mg Oral Q6H PRN Anbil M Esterle, DO 650 mg at 09/21/20 [...] kg/m Physical Exam Not indistress Lungs clear [id number] abodmen obese non tender CBC: Recent Labs [...] Consult: Joann PCP: Jared Guzman MD Outpt Sales And Marketing Assistant: yes, JEROME Lee/Kedar ASSESSMENT: T2DM uncontrolled with [...] 60 gram limit no juice w/ trays Sales And Marketing Assistant On-Call: AGAPITO Preferred Method of Communication/Reaching: [employer]metoo[employer]erve. The above physician should be paged w/ questions/concerns about items being managed by Endocrinology Team. If there are any questions or concerns related to the info in this progress note please page the oncall accounting policy consultant directly. On-Call information can be found in the [facility] Online Directory. We can also be reached by Momail communication system. We appreciate the opportunity to participate in this pt's ongoing medical care. ANTICIPATED ENDOCRINE HOME GOING RECOMMENDATIONS: Optimized for Discharge from Endocrine standpoint: Yes Home Going Endocrine Rx Recommendations-- Current hosp [id number] insulin doses. Outpt Follow Up-- As scheduled. [...] AC meals 08/28/20 Carito Thacker APRN - CLINICAL TRIALS SPECIALIST acetaminophen (TYLENOL) 325 MG tablet Take 650 [...] Ordering Physician DO HILL LISA Accession Number [id number] CPT4 Codes 01746 () Reason For Exam ileus Report Clinical [...] Onl Ordering Physician ART OWEN Accession Number [id number] CPT4 Codes 26282 (CT Abdomen/Pelvis w/ IV Contrast (IV Onl), Q9967 (CT ISOVUE 370MG/ML&[id number]&ML&1) Reason For Exam abd pain/tenderness Report CT [...] ENDOSCOPY, COLON, DIAGNOSTIC 09/19/[address] Esber WISDOM TOOTH EXTRACTION Allergy(ies): No Known Allergies [...] date of this note. * Lucia Michelle, DIRECTOR OF UNDERGRADUATE ADMISSIONS - 09/27/2020 3:13 PM EST Physical Therapy Facility/Department: [facility] TELE[facility] Daily Treatment Note NAME: Will [...] history that includes Abscess Drainage (Right, 09/09/2018); [place] tooth extraction; Dilation and curettage of uterus [...] problems. * ART STAPLETON, MDProgress Note Date:09/27/2020 Room:[address] [place] [address] Patient Name:Will Jacinto Date of :1965 Age:54 [...] Consult: Joann PCP: Jared Guzman MD Outpt Sales And Marketing Assistant: yes, JEROME Lee/Kedar ASSESSMENT: T2DM uncontrolled with [...] Home Going Endocrine Rx Recommendations-- Current hosp [id number] insulin doses Outpt Follow Up-- As scheduled [...] data in the 24 hours ending 09/27/20 3000 Diet: Dietary Nutrition Supplements: Low Calorie High [...] AC meals 08/28/20 Carito Thacker APRN - CLINICAL TRIALS SPECIALIST acetaminophen (TYLENOL) 325 MG tablet Take 650 [...] 325 mg by mouth 2 times daily 7/14/19 Nabil Hill DO miconazole (MICOTIN) 2 % [...] : GIB No Renal : CKD No ETL APPLICATION DEVELOPER : CVA/TIA No Musculoskeletal system : DJD [...] 6:20 PM Subjective: Admit Date: 09/17/2020 PCP: Jaerd Guzman MD Interval History: pt doing ok [...] Accumulation: 7 - Moderate to Severe Extremities Perfume Maker Strength: Not Performed Estimated Daily Nutrient Needs: Energy (kcal): 0506-7540; Weight Used for Energy Requirements: Adjusted(IBW) Protein [...] Usual Body Weight: 340 lb (154.2 kg)(01/02/20) Booker Body Weight: 130 lbs; % Booker Body Weight 263.8 % BMI: 55.4 Adjusted [...] Discharge Planning: Too soon to determine Contact: *[phone] * Chris Muniz MD - 09/26/2020 11:24 [...] Asuncion Garibay, DO 135 Units at 09/24/20 182 promethazine (PHENERGAN) injection 25 mg 25 mg Intramuscular Q6H PRN Art Stapleton MD 25 mg at 09/25/202011 morphine (PF) injection 4 mg 4 mg Intravenous Q6H PRN Kylah David MD 4 mg at 09/22/20 005 metoprolol (LOPRESSOR) injection 5 mg 5 mg Intravenous Q6H PRN rPiyank Rios MD 5 mg at 09/21/201819 pantoprazole (PROTONIX) injection 40 mg 40 mg Intravenous BID Sergio Sibley, DO 40 mg at 09/26/20 0938 And sodium chloride (PF) 0.9 % injection 10 mL 10 mL Intravenous BID Sergio Sibley, DO 10 mL at 09/26/20 0938 lactobacillus (CULTURELLE) capsule 1 capsule 1 capsule Oral Daily Naibl M Esterle, DO 1 capsule at 09/26/20 [...] : GIB No Renal : CKD No ETL APPLICATION DEVELOPER : CVA/TIA No Musculoskeletal system : DJD [...] Consult: Joann PCP: Jared Guzman MD Outpt Sales And Marketing Assistant: yes, JEROME Lee/Kedar ASSESSMENT: T2DM uncontrolled with [...] Home Going Endocrine Rx Recommendations-- Current hosp [id number] insulin doses Outpt Follow Up-- As scheduled [...] units TID AC meals 08/28/20 Carito Thacker, SECURITY CONTROLS ASSESSOR - CLINICAL TRIALS SPECIALIST acetaminophen (TYLENOL) 325 MG tablet Take 650 [...] 11.8 19.3* PLT 454* 215 Recent Labs 09/23/200 09/24/20 0843 NA 127* 133* K 3.9 [...] 343 lb 1.6 oz (155.6 kg) SpO2 92% BMI [...] : GIB No Renal : CKD No ETL APPLICATION DEVELOPER : CVA/TIA No Musculoskeletal system : DJD [...] Consult: Joann PCP: Jared Guzman MD Outpt Sales And Marketing Assistant: yes, JEROME Lee/Kedar ASSESSMENT: T2DM uncontrolled with [...] Home Going Endocrine Rx Recommendations-- Current hosp [id number] insulin doses Outpt Follow Up-- As scheduled [...] units TID AC meals 08/28/20 Carito Thacker, SECURITY CONTROLS ASSESSOR - CLINICAL TRIALS SPECIALIST acetaminophen (TYLENOL) 325 MG tablet Take 650 [...] AC Asuncion Garibay DO 140 Units at 09/24/20 0817 insulin [...] Nabil M Esterle, DO 50 mg at 09/19/204 vitamin C (ASCORBIC ACID) tablet 500 mg [...] 1 mg 1 mg Intramuscular PRN Nabilwarren Hill, DO dextrose 5 % solution 100 mL/hr Intravenous PRN Nabil Chika Hill, DO OBJECTIVE VITALS: BP (!) 145/84 Pulse [...] problems. * ART STAPLETON, MDProgress Note Date:09/23/2020 Room:[address] [place] [address] Patient Name:Will Jacinto Date of :1965 Age:54 [...] 72 hours. LIVER PROFILE: Recent Labs 09/22/20 0609/23/20 0120 AST 51* 42 ALT 137* 126* BILITOT 0.7 0.9 ALKPHOS 125 150* Imaging Last 24 Hours: Xr Abdomen (kub) (single Ap View) Result Date: 09/23/2020 Patient Name: WILL JACINTO ---Diagnostic Radiology--- Exam Date/Time 09/23/2020 10:26:17 EST Exam CR Abdomen AP Ordering Physician MD DAVID RICHARD H Accession Number [id number] CPT4 Codes 55789 () Reason For Exam ileus, improving Report [...] Physician MD DAVID RICHARD H Accession Number [id number] CPT4 Codes 50895 () Reason For Exam ileus Report ABDOMEN: [...] Accumulation: 7 - Moderate to Severe Extremities Perfume Maker Strength: Not Performed Estimated Daily Nutrient Needs: Energy (kcal): 0554-9062; Weight Used for Energy Requirements: Adjusted(IBW) Protein [...] Usual Body Weight: 340 lb (154.2 kg)(01/02/20) Booker Body Weight: 130 lbs; % Booker Body Weight 263.8 % BMI: 55.4 Adjusted [...] Discharge Planning: Too soon to determine Contact: *[id number] * Gayle Hanna MD - 09/23/2020 11:12 [...] 09/23/2020 11:12 AM EST Physical Therapy Facility/Department: [facility] 2E TELEMETRY Daily Treatment Note NAME: [...] obese (HCC), Osteomyelitis (HCC), Osteomyelitis (HCC), Schizophrenia ([facility]), Sleep apnea, and Venous insufficiency. has a past surgical history that includes Abscess Drainage (Right, 09/09/2018); [place] tooth extraction; Dilation and curettage of uterus [...] 09/23/2020 10:00 AM EST Occupational Therapy Facility/Department: [facility] 2E TELEMETRY Daily Treatment Note NAME: [...] deficits and progress toward safe dc back [facility] facility. Prognosis: Fair Decision Making: [...] (multiple drug resistant organisms) resistance, Morbidly obese ([facility]), Osteomyelitis ([facility]), Osteomyelitis (HCC), Schizophrenia ([facility]), Sleep apnea, and Venous insufficiency. has a past surgical history that includes Abscess Drainage (Right, 09/09/2018); [place] tooth extraction; Dilation and curettage of uterus [...] 10 Minutes(ADL) Althea Hancock OT * Asuncion Garibay DO - 09/23/2020 8:16 AM EST Department of Internal Medicine Division of Endocrinology, Diabetes, & Metabolism Endocrinology Progress Note Patient Name: Will Jacinto : 1965 AGE: 54 y.o. Room/Bed: 260/2601 Admission Date: 09/17/2020 7:46 PM Consult Date: 09/18/20 Visit Date: 09/23/2020 Reason for Endocrine Consult: DM mgmt Provider/Team Requesting Consult: Joann PCP: Jared Guzman MD Outpt Sales And Marketing Assistant: yes, JEROME Lee/Kedar ASSESSMENT: T2DM uncontrolled with [...] 60 gram limit no juice w/ trays Sales And Marketing Assistant On-Call: AGAPITO Preferred Method of Communication/Reaching: Momail. The above physician should be paged w/ questions/concerns about items being managed by Endocrinology Team. If there are any questions or concerns related to the info in this progress note please page the oncall accounting policy consultant directly. On-Call information can be found in the [facility] Online Directory. We can also be reached by Momail communication system. We appreciate the opportunity to participate in this pt's ongoing medical care. ANTICIPATED ENDOCRINE HOME GOING RECOMMENDATIONS: Optimized for Discharge from Endocrine standpoint: No Home Going Endocrine Rx Recommendations-- Current hosp [id number] insulin doses. Outpt Follow Up-- As scheduled. [...] Pulse: 111 104 97 103 Resp: 18 18 19 Temp: 98.2 F (36.8 C) [...] AC meals 08/28/20 Carito Thacker APRN - CLINICAL TRIALS SPECIALIST acetaminophen (TYLENOL) 325 MG tablet Take 650 [...] Ordering Physician DO HILL LISA Accession Number [id number] CPT4 Codes 38797 () Reason For Exam ileus Report Clinical [...] w/ IV Contrast (IV Onl Ordering Physician [id number] SHEIKH Accession Number [id number] CPT4 Codes 11417 (CT Abdomen/Pelvis w/ IV Contrast (IV Onl), Q9967 (CT ISOVUE 370MG/ML&[id number]&ML&1) Reason For Exam abd pain/tenderness Report CT [...] to discontinue it. I spoke with the music promoter and re-invited him to continue to care [...] Consult: Joann PCP: Jared Guzman MD Outpt Sales And Marketing Assistant: yes, JEROME Lee/Kedar ASSESSMENT: T2DM uncontrolled with [...] 60 gram limit no juice w/ trays Sales And Marketing Assistant On-Call: AGAPITO Preferred Method of Communication/Reaching: Momail. The above physician should be paged w/ questions/concerns about items being managed by Endocrinology Team. If there are any questions or concerns related to the info in this CONSULTATION please page the director of undergraduate admissions accounting policy consultant directly. On-Call information can be found in the [facility] Online Directory. We can also be reached by Momail communication system. We appreciate the opportunity to participate in this pt's ongoing medical care. ANTICIPATED ENDOCRINE HOME GOING RECOMMENDATIONS: Optimized for Discharge from Endocrine standpoint: No Home Going Endocrine Rx Recommendations-- Current hosp [id number] insulin doses. Outpt Follow Up-- As scheduled. [...] units TID AC meals 08/28/20 Carito Thacker, SECURITY CONTROLS ASSESSOR - CLINICAL TRIALS SPECIALIST acetaminophen (TYLENOL) 325 MG tablet Take 650 [...] Ordering Physician DO HILL LISA Accession Number [id number] CPT4 Codes 67905 () Reason For Exam ileus Report Clinical [...] Onl Ordering Physician ART OWEN Accession Number [id number] CPT4 Codes 30236 (CT Abdomen/Pelvis w/ IV Contrast (IV Onl), Q9967 (CT ISOVUE 370MG/ML&[id number]&ML&1) Reason For Exam abd pain/tenderness Report CT [...] this note. * Asuncion Valencia, JEREMY - CLINICAL TRIALS SPECIALIST - 09/22/2020 8:31 AM EST GENERAL SURGERY [...] willingness to proceed with plan. Asuncion Valencia [facility] Personal Pager [phone] [facility] Surgery Pager [phone] during hours 7:30a-4:30p Wednesday-Wednesday After hours, please contact physician director of undergraduate admissions. Associated attestation - Trae Pike MD - 09/22/2020 5:39 PM EST [facility] - Surgery [facility] Physicians Surgery Patient Name: Will Jacinto [...] : 1965 AGE: 54 y.o. Room/Bed: [address] [place] [address] Admission Date: 09/17/2020 7:46 PM Consult Date: 09/18/20 Visit Date: 09/21/2020 Reason for Endocrine Consult: DM mgmt Provider/Team Requesting Consult: Joann PCP: Jared Guzman MD Outpt Sales And Marketing Assistant: yes, JEROME Lee/Kedar ASSESSMENT: T2DM uncontrolled with [...] 60 gram limit no juice w/ trays Sales And Marketing Assistant On-Call: AGAPITO Preferred Method of Communication/Reaching: PerfectServe. The above physician should be paged w/ questions/concerns about items being managed by Endocrinology Team. If there are any questions or concerns related to the info in this CONSULTATION please page the director of undergraduate admissions accounting policy consultant directly. On-Call information can be found in the [facility] Online Directory. We can also be reached by Aleth system. We appreciate the opportunity to participate [...] units TID AC meals 08/28/20 Carito Thacker SECURITY CONTROLS ASSESSOR - CLINICAL TRIALS SPECIALIST acetaminophen (TYLENOL) 325 MG tablet Take 650 [...] Ordering Physician DO HILL LISA Accession Number [id number] CPT4 Codes 60599 () Reason For Exam ileus Report Clinical [...] Onl Ordering Physician ART OWEN Accession Number [id number] CPT4 Codes 96281 (CT Abdomen/Pelvis w/ IV Contrast (IV Onl), Q9967 (CT ISOVUE 370MG/ML&[id number]&ML&1) Reason For Exam abd pain/tenderness Report CT [...] * ART STAPLETON, MDProgress Note Date:09/20/2020 Room:[address] [place] [address] Patient Name:Will Jacinto Date of :1965 Age:54 [...] 1413 Objective Labs/Imaging/Diagnostics Labs: CBC: Recent Labs 09/17/20205309/19/20 0431 WBC 11.0* 8.5 RBC 3.87 3.67* HGB [...] Ordering Physician DO HILL LISA Accession Number [id number] CPT4 Codes 18780 () Reason For Exam ileus Report EXAMINATION: [...] Physician MD JOANN, KYLAH Garcia Accession Number [id number] CPT4 Codes 83563 () Reason For Exam ileus fu Report [...] 09/20/2020 2:09 PM EST Occupational Therapy Facility/Department: [facility] 2E TELEMETRY Daily Treatment Note NAME: Will Jacinto : 1965 Date of Service: 09/20/2020 Assessment REQUIRES OT FOLLOW UP: Yes Subjective General Chart Reviewed: Yes Subjective Subjective: Eyes half closed and minimal eye contact. States "My stomach just doesn't feel good today". Pt rubbing stomach in the bed. General Comment Comments: Declines therapy this date. Will attempt to see again. Marcela Negron CUSTOMER SECURITY CLERK * Juwan Canales PTA - 09/20/2020 10:57 AM EST Physical Therapy Facility/Department: [facility] 2E TELEMETRY Daily Treatment Note NAME: Will Jacinto : 1965 Chart review completed. Pt declined therapy this date due to nausea. I will re- attempt as schedule permits. Juwan Canales PTA * Asuncion Garibay, DO - 09/20/2020 8:29 AM EST Department of Internal Medicine Division of Endocrinology, Diabetes, & Metabolism Endocrinology Progress Note Patient Name: Will Jacinto : 1965 AGE: 54 y.o. Room/Bed: 268/2681 Admission Date: 09/17/2020 7:46 PM Consult Date: 09/18/20 Visit Date: 09/20/2020 Reason for Endocrine Consult: DM mgmt Provider/Team Requesting Consult: Joann PCP: Jared Guzman MD Outpt Sales And Marketing Assistant: yes, [facility] Jesus/Kedar ASSESSMENT: T2DM uncontrolled with hyperglycemia Insulin [...] 60 gram limit no juice w/ trays Sales And Marketing Assistant On-Call: AGAPITO Preferred Method of Communication/Reaching: Momail. The above physician should be paged w/ questions/concerns about items being managed by Endocrinology Team. If there are any questions or concerns related to the info in this CONSULTATION please page the director of undergraduate admissions accounting policy consultant directly. On-Call information can be found in the [facility] Online Directory. We can also be reached by Momail communication system. We appreciate the opportunity to [...] units TID AC meals 08/28/20 Carito Thacker SECURITY CONTROLS ASSESSOR - CLINICAL TRIALS SPECIALIST acetaminophen (TYLENOL) 325 MG tablet Take 650 [...] Ordering Physician DO HILL LISA Accession Number [id number] CPT4 Codes 46561 () Reason For Exam ileus Report Clinical [...] radiographic abnormality. Report Dictated on Workstation: [id number] --- Final --- Dictating Physician: MD BARRAGAN HARLAN Signed Date and Time: 09/18/20209:48 am Signed by: MD BARRAGAN HARLAN Transcribed Date and Time: 09/18/2020 10:25 Ct Abdomen Pelvis W Contrast Result Date: 09/17/2020 Patient Name: WILL JACINTO ---CT--- Exam Date/Time 09/17/202022:15:[address] Abdomen/Pelvis w/ IV Contrast (IV Onl Ordering Physician ART OWEN Accession Number [id number] CPT4 Codes 91189 (CT Abdomen/Pelvis w/ IV Contrast (IV Onl), Q9967 (CT ISOVUE 370MG/ML&[id number]&ML&1) Reason For Exam abd pain/tenderness Report CT [...] 544* 519* Recent Labs 09/18/2043 09/18/20 1402 09/19/20430 NA 138 134* 131* K 5.5* 5.3* 5.8* CL 104 99 99 CO2 26 25 25 BUN 40* 35* 29* CREATININE 0.97 0.99 0.88 GLUCOSE 175* 310* 395* Recent Labs 09/17/20205309/18/2054209/19/20430 AST 69* 74* 68* ALT 104* 104* [...] For additional Questions please call Endoscopy at 2931. Thank You! * Asuncion Garibay DO - 09/19/2020 8:42 AM EST Department of Internal Medicine Division of Endocrinology, Diabetes, & Metabolism Endocrinology Progress Note Patient Name: Will Jacinto : 1965 AGE: 54 y.o. Room/Bed: 268/2681 Admission Date: 09/17/2020 7:46 PM Consult Date: 09/18/20 Visit Date: 09/18/2020 Reason for Endocrine Consult: DM mgmt Provider/Team Requesting Consult: Joann PCP: Jared Guzman MD Outpt Sales And Marketing Assistant: yes, JEROME Lee/Kedar ASSESSMENT: T2DM uncontrolled with [...] 60 gram limit no juice w/ trays Sales And Marketing Assistant On-Call: AGAPITO Preferred Method of Communication/Reaching: Momail. The above physician should be paged w/ questions/concerns about items being managed by Endocrinology Team. If there are any questions or concerns related to the info in this CONSULTATION please page the director of undergraduate admissions accounting policy consultant directly. On-Call information can be found in the [facility] Online Directory. We can also be reached by Momail communication system. We appreciate the opportunity to [...] units TID AC meals 08/28/20 Carito Thacker, SECURITY CONTROLS ASSESSOR - CLINICAL TRIALS SPECIALIST acetaminophen (TYLENOL) 325 MG tablet Take 650 [...] Ordering Physician DO HILL LISA Accession Number [id number] CPT4 Codes 84161 () Reason For Exam ileus Report Clinical [...] radiographic abnormality. Report Dictated on Workstation: [id number] --- Final --- Dictating Physician: MD BARRAGAN HARLAN Signed Date and Time: 09/18/20209:48 am Signed by: MD BARRAGAN HARLAN Transcribed Date and Time: 09/18/2020 10:25 Ct Abdomen Pelvis W Contrast Result Date: 09/17/2020 Patient Name: WILL JACINTO ---CT--- Exam Date/Time 09/17/202022:15:[address] Abdomen/Pelvis w/ IV Contrast (IV Onl Ordering Physician ART OWEN Accession Number [id number] CPT4 Codes 15332 (CT Abdomen/Pelvis w/ IV Contrast (IV Onl), Q9967 (CT ISOVUE 370MG/ML&[id number]&ML&1) Reason For Exam abd pain/tenderness Report CT [...] schizophrenia, female identifying as male. Admitted from [place] w/ abd pain/n/v concerning for ileus. Pt [...] loss Fluid Accumulation: 1 - Mild Extremities Perfume Maker Strength: Not Performed Estimated Daily Nutrient Needs: Energy (kcal): 8831-6217; Weight Used for Energy Requirements: Adjusted(IBW) Protein (g): 53-64; Weight Used for Protein Requirements: Adjusted(IBW) Fluid (ml/day): per MD; Nutrition Related Findings: +BS; abd round, rotund. +1 pitting edema LLE, R AKA. Tamara 14. [id number], ALT and AST elevated Wounds: None Current Nutrition Therapies: DIET CLEAR LIQUID; Anthropometric Measures: Height: 5' 6" (167.6 cm) Current Body Weight: 360 lb (163.3 kg) Admission Body Weight: 360 lb (163.3 kg) Booker Body Weight: 130 lbs; % Booker Body Weight 276.9 % BMI: 58.1 Adjusted [...] Discharge Planning: Too soon to determine Contact: [id number] * Carito Ruelas, PT - 09/18/2020 10:15 AM EST Physical Therapy Facility/Department: [facility] TELEMETRY Initial Assessment NAME: Will Jacinto [...] history that includes Abscess Drainage (Right, 09/09/2018); [place] tooth extraction; Dilation and curettage of uterus (05/18/2019); and above knee amputation (Right, 06/16/2019). Restrictions Restrictions/Precautions Restrictions/Precautions: General Precautions, Fall Risk(R AVINASH, identifies as MALE "MARIA LUISA", tele, obese) [...] Lives With: Other (comment) Type of Home: Facility([facility]) Home Layout: One level Bathroom Shower/Tub: Shower chair with back, Walk-in shower Bathroom Toilet: Handicap height Bathroom Equipment: Grab bars in shower, Grab bars around toilet, Shower chair Bathroom Accessibility: Wheelchair accessible Home Equipment: Rolling walker, Wheelchair-manual Receives Help From: attendant children's institution ADL Assistance: Needs assistance(assist for toileting and all ADLs (A x 1)) Homemaking Responsibilities: No Ambulation Assistance: Needs assistance(transfers only, wc mob) Transfer Assistance: Needs assistance(at [facility] to w/c) Active Handbag Designer: No Patient's Handbag Designer Info: facility, [facility] transport Additional Comments: pt states staff [...] climbing 3-5 steps with a railing?: Total AM-[facility] Inpatient Mobility Raw Score : 10 AM-[facility] Inpatient T-Scale Score : 32.29 Mobility Inpatient [...] balance;Decreased posture Assessment: Pt was previously at [facility] and assisted x 1 for ADL routine. 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 Restrictions Restrictions/Precautions Restrictions/Precautions: General Precautions, Fall Risk(R AVINASH, identifies as MALE "MARIA LUISA", tele, obese) [...] Lives With: Other (comment) Type of Home: Facility([facility]) Home Layout: One level Bathroom Shower/Tub: Shower chair with back, Walk-in shower Bathroom Toilet: Handicap height Bathroom Equipment: Grab bars in shower, Grab bars around toilet, Shower chair Bathroom Accessibility: Wheelchair accessible Home Equipment: Rolling walker, Wheelchair-manual Receives Help From: attendant children[facility] institution ADL Assistance: Needs assistance(assist for toileting and all ADLs (A x 1)) Homemaking Responsibilities: No Ambulation Assistance: Needs assistance(transfers only, wc mob) Transfer Assistance: Needs assistance(at [facility] to w/c) Active Handbag Designer: No Patient's Handbag Designer Info: facility, [facility] transport Additional Comments: pt states staff assist with all ADLs. Pt transfers at [facility] to w/c then [facility] with staff to assist with [...] sit: Stand by assistance Transfer Comments: at [facility] with bed height slightly elevated Vision [...] CMS 0-100% Score: 53.32 (09/18/20952) ADL Inpatient [facility] G-Code Modifier : CK (09/18/20952) Goals Short [...] : GIB No Renal : CKD No ETL APPLICATION DEVELOPER : CVA/TIA No Musculoskeletal system : DJD [...] meds Priyank Rios MD * Ema Escobedo, SECURITY CONTROLS ASSESSOR - ETL APPLICATION DEVELOPER - 11/28/2020 10:52 AM EST Department of Internal Medicine Division of Endocrinology, Diabetes, & Metabolism Endocrinology Progress Note Patient Name: Will Jacinto : 1965 AGE: 55 y.o. Room/Bed: 171/604266 Admission Date: 11/22/2020 5:55 PM Consult Date: 11/24/20 Visit Date: 11/28/2020 Reason for Endocrine Consult: "out of control diabetic" Provider/Team Requesting Consult: Joann PCP: Jared Guzman MD Outpt Sales And Marketing Assistant: yes, [facility] ASSESSMENT: T2DM uncontrolled w/ hyperglycemia, on long-term [...] doses (160-110-150 units TID) Outpt Follow Up-- [facility] Dr. Lee Appointment request sent to Endo office Staff: No, has appt in January SUBJECTIVE/HPI: CHIEF COMPLAINT: Abdominal Pain Type of DM: 2 Onset of DM: unclear Home DM Medication Regimen: U500 pen 160/110/150 TID; given via [facility] ([facility]) DM control (last A1c/glucose data): [...] am. Plan for d/c to [facility] later today. ROS negative except for those [...] data in the 24 hours ending 11/28/20 4183 Diet: Dietary Nutrition Supplements: Diabetic Oral Supplement [...] Radiology ACCESSION EXAM DATE/TIME PROCEDURE ORDERING PROVIDER [id number] 11/22/2020 18:30 EST CR Chest Portable [id number] NOLASCO CPT code 08465 Reason For Exam (CR Chest Portable) SOB [...] Tomography ACCESSION EXAM DATE/TIME PROCEDURE ORDERING PROVIDER [id number] 11/22/2020 19:[address] Abdomen/Pelvis w/ IV [id number] -JOEL NLESON Contrast (IV Onl CPT code 74938 Q9967 Reason For Exam (CT Abdomen/Pelvis w/ [...] radiology, and other reports. 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 Pt reports his wt fluctuates frequently, stating UBW 350#, and pt last weighed 353# in nursing facility within past month Malnutrition Assessment: Malnutrition Status: Insufficient data Estimated Daily Nutrient Needs: Energy (kcal): 9182-7815; Weight Used for Energy Requirements: Adjusted(IBW) Protein [...] however 330# per Epic 09/17, 340# 01/02) Booker Body Weight: 130 lbs; % Booker Body Weight 243.8 % BMI: 51.2 Adjusted [...] Discharge Planning: Too soon to determine Contact: [id number] * Ema Escobedo, SECURITY CONTROLS ASSESSOR - ETL APPLICATION DEVELOPER - 11/27/2020 1:41 PM EST Department of Internal Medicine Division of Endocrinology, Diabetes, & Metabolism Endocrinology Progress Note Patient Name: Will Jacinto : 1965 AGE: 55 y.o. Room/Bed: [facility]/666782 Admission Date: 11/22/2020 5:55 PM Consult Date: 11/24/20 Visit Date: 11/27/2020 Reason for Endocrine Consult: "out of control diabetic" Provider/Team Requesting Consult: Joann PCP: Jared Guzman MD Outpt Sales And Marketing Assistant: yes, [facility] ASSESSMENT: T2DM uncontrolled w/ hyperglycemia, on long-term [...] doses (160-110-150 units TID) Outpt Follow Up-- [facility] Dr. Lee Appointment request sent to Endo office Staff: No, has appt in January SUBJECTIVE/HPI: CHIEF COMPLAINT: Abdominal Pain Type of DM: 2 Onset of DM: unclear Home DM Medication Regimen: U500 pen 160/110/150 TID; given via [facility] ([facility]) DM control (last A1c/glucose data): [...] currently. Plan for d/c to [facility] once stable. ROS negative except for those [...] Radiology ACCESSION EXAM DATE/TIME PROCEDURE ORDERING PROVIDER [id number] 11/22/2020 18:30 EST CR Chest Portable [id number] NOLASCO CPT code 67011 Reason For Exam (CR Chest Portable) SOB [...] Tomography ACCESSION EXAM DATE/TIME PROCEDURE ORDERING PROVIDER [id number] 11/22/2020 19:[address] Abdomen/Pelvis w/ IV [id number] FARMER Contrast (IV Onl CPT code 13274 Q9967 Reason For Exam (CT Abdomen/Pelvis w/ [...] radiology, and other reports. I reviewed the RESEARCH ASSOCIATE PROFESSOR/resident's note and agree with the documented findings [...] outpatient - plan to DC back [facility] [place] * Morenita Steele V., PT - 11/27/2020 [...] history that includes Abscess Drainage (Right, 09/09/2018); [place] tooth extraction; Dilation and curettage of uterus [...] Home Equipment: Wheelchair-electric Receives Help From: Family, attendant children's institution ADL Assistance: Needs assistance Homemaking Assistance: Needs assistance Homemaking Responsibilities: No Active Handbag Designer: No Patient's Handbag Designer Info: facility, [facility] transport Additional Comments: from facility, assist with ADLs, uses electric wheelchair for mobility, stand pivot transfer with FWW DIRECTOR OF UNDERGRADUATE ADMISSIONS Cognition Cognition Arousal/Alertness: Appropriate responses to stimuli [...] Plan of Care supervision is transferred to [facility] Rehab Department Physical Therapist. Goals and/or [...] 08/23/2020 No results found for: PHART, PO2ART, VQU1KZY No results for input(s): INR in the [...] had multiple BMs this morning. Seen by [facility] and had hysteroscopy today with biopsy done [...] history that includes Abscess Drainage (Right, 09/09/2018); [place] tooth extraction; Dilation and curettage of uterus [...] Home Equipment: Wheelchair-electric Receives Help From: Family, attendant children's institution ADL Assistance: Needs assistance Homemaking Assistance: Needs assistance Homemaking Responsibilities: No Active Handbag Designer: No Patient's Handbag Designer Info: facility, [facility] transport Additional Comments: from facility, assist with ADLs, uses electric wheelchair for mobility, stand pivot transfer with FWW DIRECTOR OF UNDERGRADUATE ADMISSIONS Objective Vision: Within Functional Limits Hearing: Within [...] Equipment Evaluation, Education, & procurement OutComes Score [facility] Daily Activity Inpatient How much help for putting on and taking off regular lower body clothing?: Total How much help for Bathing?: A Lot How much help for Toileting?: Total How much help for putting on and taking off regular upper body clothing?: A Little How much help for taking care of personal grooming?: None How much help for eating meals?: None [facility] Inpatient Daily Activity Raw Score: 15 [facility] Inpatient ADL T-Scale Score : 34.69 ADL [...] Plan of Care supervision is transferred to [facility] Occupational Therapist. Goals and/or treatment plan was established in collaboration with patient/family/other representatives. Denise Ramon OTR/L * Jagdeep Grace MD - 11/27/2020 8:14 AM EST Progress Note Date:11/27/2020 Room:[address] [place] [address] Patient Name:Will Jacinto Date of :1965 Age:55 [...] RDW 16.1* PLT 352 CHEMISTRIES: Recent Labs 11/25/204 11/26/20 0000 11/27/20 0316 NA 136 130* 132* K 3.8 3.9 4.2 CL 103 98 104 CO2 28 25 21* BUN 11 10 13 CREATININE 0.76 0.63 0.57 GLUCOSE 107* 188* 225* PT/INR:No results for input(s): PROTIME, INR in the last 72 hours. APTT:No results for input(s): APTT in the last 72 hours. LIVER PROFILE: Recent Labs 11/25/204 11/26/20 0000 11/27/20 0316 AST 26 29 26 ALT 31 33 34 BILITOT 0.4 0.5 0.6 ALKPHOS 83 88 97 Imaging Last 24 Hours: Xr Abdomen (kub) (single Ap View) Result Date: 11/25/2020 Patient Name: WILL JACINTO Diagnostic Radiology ACCESSION EXAM DATE/TIME PROCEDURE ORDERING PROVIDER [id number] 11/25/2020 15:08 EST CR Abdomen AP Lorenzo STAPLETON MICHAEL CPT code 18299 Reason For Exam (CR Abdomen AP) abd [...] Ultrasound ACCESSION EXAM DATE/TIME PROCEDURE ORDERING PROVIDER [id number] 11/25/2020 10:38 EST US Transvaginal MD DANIELS DIANA CHRISTINE CPT code 43411 Reason For Exam (US Transvaginal) AUB Report [...] PATIENT NAME: Will Jacinto DATE: 11/27/2020 PAGER: [phone] * Ema Escobedo APRN - ETL APPLICATION DEVELOPER - 11/26/2020 1:45 PM EST Department of Internal Medicine Division of Endocrinology, Diabetes, & Metabolism Endocrinology Progress Note Patient Name: Will Jacinto : 1965 AGE: 55 y.o. Room/Bed: 1714/373896 Admission Date: 11/22/2020 5:55 PM Consult Date: 11/24/20 Visit Date: 11/26/2020 Reason for Endocrine Consult: "out of control diabetic" Provider/Team Requesting Consult: Joann PCP: Jared Guzman MD Outpt Sales And Marketing Assistant: yes, [facility] ASSESSMENT: T2DM uncontrolled w/ hyperglycemia, on long-term [...] doses (160-110-150 units TID) Outpt Follow Up-- [facility]. Lee Appointment request sent to Endo office Staff: No, has appt in January SUBJECTIVE/HPI: CHIEF COMPLAINT: Abdominal Pain Type of DM: 2 Onset of DM: unclear Home DM Medication Regimen: U500 pen 160/110/150 TID; given via SNF ([facility] [place]) DM control (last A1c/glucose data): Lab Results [...] currently. Plan for d/c to [facility] once stable. ROS negative except for those [...] Radiology ACCESSION EXAM DATE/TIME PROCEDURE ORDERING PROVIDER [id number] 11/22/2020 18:30 EST CR Chest Portable [id number] NELSON CPT code 09548 Reason For Exam (CR Chest Portable) SOB [...] Tomography ACCESSION EXAM DATE/TIME PROCEDURE ORDERING PROVIDER [id number] 11/22/2020 19:[address] Abdomen/Pelvis w/ IV [id number] -JOEL NELSON Contrast (IV Onl CPT code 09343 Q9967 Reason For Exam (CT Abdomen/Pelvis w/ [...] radiology, and other reports. I reviewed the RESEARCH ASSOCIATE PROFESSOR/resident's note and agree with the documented findings [...] outpatient - plan to DC back to [facility] Time spent with patient over 51% total time 15 minutes which includes review of records, counseling, management, and coordination of care as documented in note. * Jagdeep Grace MD - 11/26/2020 12:59 PM EST Progress Note Date:11/26/2020 Room:[address] [place] [address] Patient Name:Will Jacinto Date of :1965 Age:55 [...] Radiology ACCESSION EXAM DATE/TIME PROCEDURE ORDERING PROVIDER [id number] 11/25/2020 15:08 EST CR Abdomen AP Lorenzo STAPLETON MICHAEL CPT code 02618 Reason For Exam (CR Abdomen AP) abd [...] Ultrasound ACCESSION EXAM DATE/TIME PROCEDURE ORDERING PROVIDER [id number] 11/25/2020 10:38 EST US Transvaginal MD DANIELS DIANA CHRISTINE CPT code 36184 Reason For Exam (US Transvaginal) AUB Report [...] PATIENT NAME: Will Jacinto DATE: 11/26/2020 PAGER: [phone] * Leonela Guerrero MD - 11/26/2020 12:35 PM EST Underwent uncomplicated PEUA, D&C, and IUD placement this morning. Megace discontinued as she is now being treated with levonorgestrel IUD. Will await pathology results and arrange outpatient follow up. SALES ADMINISTRATOR ONC will sign off at this time. Please re-consult with further questions or concerns. Discussed w/ Dr. Dejesus. * Michael Martin MD - 11/26/2020 10:24 AM EST Hospitalist Progress Note 11/26/2020 10:25 AM Subjective: Admit Date: 11/22/2020 PCP: Jared Guzman MD Interval History: No overnight issues. DIET FULL LIQUID; No intake/output data recorded. Date 11/26/20 0000 - 11/26/20 2359 Shift [id number] 8088-2081 7500-0824 24 Hour Total INTAKE P.O.(mL/kg/hr) 100 100 [...] 08/23/2020 No results found for: PHART, PO2ART, ESA2DDC No results for input(s): INR in the [...] 11. Debility Plan: Pt was transferred from [facility] Seen by [facility] and had hysteroscopy today with biopsy done [...] Jacinto 55 y.o. transgender male admitted to [facility] for abdominal pain and uncontrolled T2DM, [...] AC Asuncion Garibay DO 6 Units at 11/25/20 181 [...] Jacinto 55 y.o. transgender male admitted to [facility] for abdominal pain and uncontrolled T2DM, [...] determine long-term management Appreciate primary team and accounting policy consultant management of medical comorbidities. Most recent [...] Jacinto : 1965 AGE: 55 y.o. Room/Bed: [facility] Admission Date: 11/22/2020 5:55 PM Consult Date: 11/24/20 Visit Date: 11/25/2020 Reason for Endocrine Consult: "out of control diabetic" Provider/Team Requesting Consult: Joann PCP: Jared Guzman MD Outpt Sales And Marketing Assistant: yes, [facility] ASSESSMENT: T2DM uncontrolled w/ hyperglycemia, on long-term [...] doses (160-110-150 units TID) Outpt Follow Up-- [facility] Dr. Lee Appointment request sent to Endo office Staff: No, has appt in January SUBJECTIVE/HPI: CHIEF COMPLAINT: Abdominal Pain Type of DM: 2 Onset of DM: unclear Home DM Medication Regimen: U500 pen 160/110/150 TID; given via [facility] ([facility]) DM control (last A1c/glucose data): [...] Radiology ACCESSION EXAM DATE/TIME PROCEDURE ORDERING PROVIDER [id number] 11/22/2020 18:30 EST CR Chest Portable [id number] NELSON CPT code 76235 Reason For Exam (CR Chest Portable) SOB [...] Tomography ACCESSION EXAM DATE/TIME PROCEDURE ORDERING PROVIDER [id number] 11/22/2020 19:[address] Abdomen/Pelvis w/ IV [id number] -JOEL NELSON Contrast (IV Onl CPT code 25397 Q9967 Reason For Exam (CT Abdomen/Pelvis w/ [...] excessive vaginal clots, patient not seen by SALES ADMINISTRATOR ("due tohigh glucoses"). His glucose came down [...] TID AC Recent Labs 11/22/20 1827 11/23/20 03511/24/20 0319 WBC 9.6 8.9 6.9 HGB 12.0 [...] in transgender male, hx of endometrial hyperplasia, SALES ADMINISTRATOR consulted 5. Morbid obesity, obstructive sleep apnea [...] * Kylah David MD * Covert, Neisha Villafuerte RN - 11/24/2020 11:43 AM [place] Piano Assembler called me to patients bedside at 11:15am [...] on patient since it was called by pathology secretary/transcriptionist and Dr David will be at bedside [...] - 06/20/2019 10:09 AM EDT Progress Note [facility] Patient - Will Jacinto, Age - 53 y.o. - 1965 Room Number - [id number] [facility] - [id number] Date of Admission - 06/14/2019 1:21 PM [...] EDT ENDOCRINOLOGY PROGRESS NOTE Patient: Will Jacinto Unit/Bed:6125/754637 Date of : 1965 Admit date: 06/14/2019 [...] radiology, and other reports. I reviewed the RESEARCH ASSOCIATE PROFESSOR/resident's note and agree with the documented findings [...] per protocol. Noted likely DC back to [facility]. Anticipated homegoing regimen: U-500 160-125-125 TID (given different diet at the [facility]). FU with Endocrinology outpatient - pt prefers closer to [place]. Time spent with patient over 51% total time 25 minutes which includes review of records, counseling, management, and coordination of care as documented in note. * Davie Frankel MD - 06/19/2019 11:56 AM EDT Hospitalist Progress Note 06/19/2019 11:57 AM [phone]: Please page me for patient care issues. [phone]: Please page [facility] night Hospitalist for any issues. Subjective: Admit Date: 06/14/2019 PCP: Jared Guzman MD Room#: 6180/[id number] Interval History: No new issues per pt [...] Advance Directive: Full Code Discharge planning: to [facility] soon Davie Frankel MD Division of Hospitalist Medicine Inpatient Medical Services * Theo Billingsley MD - 06/19/2019 9:46 AM EDT Progress Note [facility] Patient - Will Jacinto, Age - 53 y.o. - 1965 Room Number - [id number] [facility] - [id number] Date of Admission - 06/14/2019 1:21 PM [...] 06/18/19 1545 dextrose LABS: CBC: Recent Labs 06/17/19408 WBC 13.3* HGB 7.6* PLT 403 BMP: [...] Specialists 06/19/2019 2:08 PM * Elle Knutson, DIRECTOR OF UNDERGRADUATE ADMISSIONS - 06/19/2019 9:24 AM EDT Physical Therapy Facility/Department: [facility] TELEMETRY Daily Treatment Note NAME: Will Jacinto : 1965 Date of Service: 06/19/2019 Discharge Recommendations: Subacute/Care Home Facility Assessment Body structures, Functions, Activity limitations: [...] history that includes Abscess Drainage (Right, 09/09/2018); [place] tooth extraction; Dilation and curettage of uterus [...] 1965 Date of Service: 06/19/2019 Discharge Recommendations: Subacute/Care Home Facility Assessment Performance deficits / Impairments: Decreased functional mobility ;Decreased ADL status;Decreased ROM;Decreased strength;Decreased safe awareness;Decreased cognition;Decreased endurance;Decreased balance;Decreased coordination Assessment: OT eval completed. Pt presents with above deficits limitng functional indep. Pt is a falls and safety risk. Recommend SNF upon discharge to maximize indep and safety with ADL and transfers. Prognosis: Fair Decision Making: Medium Complexity Exam: [facility] OT Education: OT Role;Plan of Care;Transfer [...] history that includes Abscess Drainage (Right, 09/09/2018); [place] tooth extraction; Dilation and curettage of uterus [...] With: Other (comment) Type of Home: Facility([facility]) Home Layout: One level Home Access: Level entry Bathroom Shower/Tub: Walk-in shower, Shower chair with back Bathroom Toilet: Handicap height Bathroom Equipment: Grab bars in shower, Shower chair Bathroom Accessibility: Wheelchair accessible Home Equipment: 4 wheeled walker, Electric scooter, Wheelchair-manual Receives Help From: attendant children's institution ADL Assistance: Needs assistance Homemaking Assistance: (provided by facility) Homemaking Responsibilities: No Ambulation Assistance: Independent(has been using wc 3-4 years) Transfer Assistance: Independent Active Handbag Designer: No Patient's Handbag Designer Info: facility, [facility] transport Mode of Transportation: Bus, Van [...] How much help for eating meals?: None [facility] Inpatient Daily Activity Raw Score: 13 AM-PAC [...] Group Co-treatment Time In 824 Time Out 09 Minutes 38 Timed Code Treatment Minutes: 25 Minutes(FA 2) Goals and/or treatment plan was established in collaboration with patient/family/other representatives. Patient's Occupational Therapy Plan of Care [facility]. Pt requires skill of 2 therapists for safety and positioning. Linda Cameron OTR/L * Kerri Morales MD - 06/19/2019 8:16 AM EDT Department of Internal Medicine Section of Endocrinology Resident Progress Note SUBJECTIVE: Admit date: 06/14/2019 Admitted w/: Right foot wound requiring AKA Original Endocrine Consult date: 06/15/19 OutPt Sales And Marketing Assistant: None Lab Results Component Value Date LABA1C [...] Range: >60 mL/min 38.[address] [facility] Latest Ref Range: >60 mL/min 32.1 Glucose [...] to be determined. Please page the on-call Sales And Marketing Assistant if there arequestions regarding Endocrine DC recommendations. If there are any questions or concerns related to the info please page the director of undergraduate admissions accounting policy consultant directly. On-Call information can be found in the [facility]. We appreciate the opportunity to participate [...] this progress note please page the oncall accounting policy consultant directly. On-Call information can be found in the [facility] Online Directory. We can also be reached by [employer] system. We appreciate the opportunity to participate [...] EDT Hospitalist Progress Note 06/18/2019 2:31 PM [phone]: Please page me for patient care issues. [phone]: Please page [facility] night Hospitalist for any issues. Subjective: Admit Date: 06/14/2019 PCP: Jared Guzman MD Room#: 6125/[id number] Interval History: Patient seen and examined No [...] of Hospitalist Medicine Inpatient Medical Services PAGER: [phone] * Allison Coleman RD, LD - 06/18/2019 [...] he is still ordering & consuming meals. DIRECTOR OF UNDERGRADUATE ADMISSIONS, he was a resident at [facility]. At [facility], he reports receiving ProStat (protein modular) and [...] High Nutrient Needs: Estimated Daily Total Kcal: 7158-0128 (25-30 kcals/kg IBW) Estimated Daily Protein (g): [...] 380 lb (172.4 kg)(Per pt report ) Booker Body Wt: 122 lb (55.3 kg)(Adjusted IBW based on R AKA ), % Booker Body 309% Adjusted Body Wt: , body [...] - 06/18/2019 9:28 AM EDT Progress Note [facility] Patient - Will Jacinto, Age - 53 y.o. - 1965 Room Number - [id number] [facility] [id number] [id number] Date of Admission - 06/14/2019 1:21 PM [...] Oral Nightly colistimethate (COLY-MYCIN) IVPB 1.69 mg/kg (Booker) Intravenous Q8H insulin regular 0-16 Units Subcutaneous [...] already. Original Endocrine Consult date: 06/15/19 OutPt Sales And Marketing Assistant: none Lab Results Component Value Date LABA1C [...] 5 % 100 mL IVPB, 1.69 mg/kg (Booker), Intravenous, Q8H insulin regular (HUMULIN R;NOVOLIN R) [...] to be determined. Please page the on-call Sales And Marketing Assistant if there arequestions regarding Endocrine DC recommendations. If there are any questions or concerns related to the info in this progress note please page the oncall accounting policy consultant directly. On-Call information can be found in the [facility] Directory. We appreciate the opportunity to [...] Clemons MD - 06/18/2019 6:13 AM EDT [facility] TELEMETRY [address] [place] [address] Dept: [phone] Loc: [phone] Orthopedic Progress Note Name: Will Jacinto Date:06/18/2019 [...] an outpatient in 2 weeks please call [phone] to make an appointment Will sign off-=call with questions * Jayson Hawthorne MD - 06/17/2019 2:43 PM EDT Progress Note [facility] Patient - Will Jacinto, Age - 53 y.o. - 1965 Room Number - [id number] N - [id number] Date of Admission - 06/14/2019 1:21 PM [...] Oral Nightly colistimethate (COLY-MYCIN) IVPB 1.69 mg/kg (Booker) Intravenous Q8H insulin regular 0-16 Units Subcutaneous [...] midfoot with some midfoot Jayson Hawthorne MD [facility] 06/17/2019 2:44 PM * Crystal Mullins MD - 06/17/2019 1:15 PM EDT Hospitalist Progress Note 06/17/2019 1:16 PM [phone]: Please page me for patient care issues. [phone]: Please page [facility] night Hospitalist for any issues. Subjective: Admit Date: 06/14/2019 PCP: Jared Guzman MD Room#: [id number] Interval History: Patient seen and examined No [...] Oral Nightly colistimethate (COLY-MYCIN) IVPB 1.69 mg/kg (Booker) Intravenous Q8H insulin regular 0-16 Units Subcutaneous [...] of Hospitalist Medicine Inpatient Medical Services PAGER: [phone] * Sera Kraus, PT - 06/17/2019 10:32 AM EDT Physical Therapy Facility/Department: [facility] TELEMETRY Initial Assessment NAME: Will Jacinto : 1965 Date of Service: 06/17/2019 Discharge Recommendations: Subacute/Care Home Facility Assessment Body structures, Functions, Activity limitations: [...] history that includes Abscess Drainage (Right, 09/09/2018); [place] tooth extraction; Dilation and curettage of uterus [...] With: Other (comment) Type of Home: Facility([facility]) Home Layout: One level Home Access: Level entry Bathroom Shower/Tub: Walk-in shower, Shower chair with back Bathroom Toilet: Handicap height Bathroom Equipment: Grab bars in shower, Shower chair Bathroom Accessibility: Wheelchair accessible Home Equipment: 4 wheeled walker, Electric scooter, Wheelchair-manual Receives Help From: attendant children's institution ADL Assistance: Needs assistance Homemaking Assistance: (provided by facility) Homemaking Responsibilities: No Ambulation Assistance: (non-ambulatory x3-4 years, uses wc) Transfer Assistance: Independent Active Handbag Designer: No Patient's Handbag Designer Info: facility, [facility] transport Mode of Transportation: Bus, Van [...] Safety Education & Training Plan Comment: AVINASH simpson RLE NWB Safety Devices Type of devices: All fall risk precautions in place, Call light within reach, Patient at risk for falls, Left in bed, Nurse notified AM-PAC Score AM-PAC Inpatient Mobility Raw Score : 6 (06/17/19 103) AM-PAC Inpatient T-Scale Score : 23.55 (06/17/19 103) Mobility Inpatient CMS 0-100% Score: 100 (06/17/191031) [...] Time Individual Concurrent Group Co-treatment Time In 54 Time Out 1019 Minutes 25 Timed Code Treatment Minutes: 10 Minutes(TP) Patient s Physical Therapy Plan of Care supervision is transferred to [facility] Rehab Department Physical Therapist. Goals and/or [...] already. Original Endocrine Consult date: 06/15/19 OutPt Sales And Marketing Assistant: none Lab Results Component Value Date LABA1C [...] 5 % 100 mL IVPB, 1.69 mg/kg (Booker), Intravenous, Q8H insulin regular (HUMULIN R;NOVOLIN R) [...] to be determined. Please page the on-call Sales And Marketing Assistant if there arequestions regarding Endocrine DC recommendations. If there are any questions or concerns related to the info in this progress note please page the oncall accounting policy consultant directly. On-Call information can be found in the [facility] Directory. We appreciate the opportunity to [...] Clemons MD - 06/17/2019 5:29 AM EDT [place] [address] [address] [place] [address] Dept: [phone] Loc: [phone] Orthopedic Progress Note Name: Will Jacinto Date:06/17/2019 [...] HCG in the last 72 hours. Assessment Wlil is a 53 y.o.adult RIGHT foot ulceration [...] an outpatient in 2 weeks please call [phone] to make an appointment * Crystal Mullins MD - 06/16/2019 4:12 PM EDT Hospitalist Progress Note 06/16/2019 4:12 PM [phone]: Please page me for patient care issues. [phone]: Please page [facility] night Hospitalist for any issues. Subjective: Admit Date: 06/14/2019 PCP: Jared Guzman MD Room#: [id number] Interval History: Patient seen and examined No [...] Oral Nightly colistimethate (COLY-MYCIN) IVPB 1.69 mg/kg (Booker) Intravenous Q8H insulin regular 0-16 Units Subcutaneous [...] of Hospitalist Medicine Inpatient Medical Services PAGER: [phone] * Asuncion Garibay DO - 06/16/2019 3:23 [...] already. Original Endocrine Consult date: 06/15/19 OutPt Sales And Marketing Assistant: none Lab Results Component Value Date LABA1C [...] 5 % 100 mL IVPB, 1.69 mg/kg (Booker), Intravenous, Q8H insulin regular (HUMULIN R;NOVOLIN R) [...] his operating room procedure and returns to [place] is a lot of diet and we [...] to be determined. Please page the on-call Sales And Marketing Assistant if there arequestions regarding Endocrine DC recommendations. If there are any questions or concerns related to the info in this progress note please page the oncall accounting policy consultant directly. On-Call information can be found in the [facility] Directory. We appreciate the opportunity to [...] - 06/16/2019 12:25 PM EDT Progress Note [facility] Patient - Will Jacinto, Age - 53 y.o. 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 Will follow. * Sanjana Oden - 06/16/2019 7:10 AM EDT Occupational Therapy OT Hold Note Pt scheduled for R AKA today. Will hold at this time and re-attempt after surgery. Sanjana Oden, S/OT * Pawan Cartagena MD - 06/16/2019 5:47 AM EDT [facility] H[address] TELEMETRY [address] [place] [address] Dept: [phone] Loc: [phone] Orthopedic Progress Note Name: Will Jacinto Date:06/16/2019 [...] Consult endocrine. Obesity: counseled. Debility: Resides at [facility]- will need SNF. Depression: on meds. DVT and GI prophylaxis ANAND LEE MD * Juan Carey MD - 06/15/2019 6:32 AM EDT [facility] H[facility] TELEMETRY [address] [facility] [address] Dept: [phone] Loc: [phone] Orthopedic Progress Note Name: Will Jacinto Date:06/15/2019 [...] go deep. LABS: Recent Labs 06/14/19 1456 06/15/19422 WBC 7.0 6.6 HGB 9.6* 8.8* HCT 30.2* 27.2* PLT 396 353 Recent Labs 06/14/19 1456 06/15/19 042 NA 135 135 K 4.8 4.7 CL 96* 100 CO2 27 25 BUN 30* 31* CREATININE 0.89 0.86 CALCIUM 9.6 8.7 Recent Labs 06/14/19 1940 INR 1.0 Recent Labs 06/14/191455 SEDRATE 65* CRP 30.7* No results for [...] Physician Discharge Summary Patient ID: Will Jacinto [id number] y.o. 1965 Admit date: 09/17/2020 Discharge [...] feel he is stable to return to [place] on this current treatment regimen with smaller [...] Normal strength, sensation and reflexes throughout Disposition: [facility] Patient Instructions: @MEDDISCHARGE@ Activity: activity as tolerated [...] transgender male, biologically female, presented from his [facility] after abdominal pain, out of control glucose readings and reported mental status change. However, EMS in the hospital reported that he was alert and oriented x3, however, he says that recently he has had increasing abdominal distention and distress and he noticed that his glucoses have been harder and harder to control. Pt was admitted to [facility]. Pt had dysfunctinal uterine bleeding and transferred to [facility] for [facility] eval. Also had ab pain and found to have ileus. Seen by GI and recommended reglan. Pt had BMs. abd pain better. Advance diet to GI soft Seen by [facility] and had hysteroscopy with biopsy done KUB [...] 08/23/2020 No results found for: PHART, PO2ART, CCV7HMX No results for input(s): INR in the [...] Radiology ACCESSION EXAM DATE/TIME PROCEDURE ORDERING PROVIDER [id number] 11/27/2020 08:28 EST CR Abdomen AP MD MARTIN KHALED CPT code 61944 Reason For Exam (CR Abdomen AP) ileus [...] Radiology ACCESSION EXAM DATE/TIME PROCEDURE ORDERING PROVIDER [id number] 11/25/2020 15:08 EST CR Abdomen AP Lorenzo STAPLETON MICHAEL CPT code 66426 Reason For Exam (CR Abdomen AP) abd [...] Radiology ACCESSION EXAM DATE/TIME PROCEDURE ORDERING PROVIDER [id number] 11/22/2020 18:30 EST CR Chest Portable JOEL ZHONG CPT code 68292 Reason For Exam (CR Chest Portable) SOB [...] Tomography ACCESSION EXAM DATE/TIME PROCEDURE ORDERING PROVIDER [id number] 11/22/2020 19:[address] Abdomen/Pelvis w/ IV [id number] -JOEL NELSON Contrast (IV Onl CPT code 40019 Q9967 Reason For Exam (CT Abdomen/Pelvis w/ [...] Ultrasound ACCESSION EXAM DATE/TIME PROCEDURE ORDERING PROVIDER [id number] 11/25/2020 10:38 EST US Transvaginal MD DANIELS DIANA CHRISTINE CPT code 42169 Reason For Exam (US Transvaginal) AUB Report [...] Will Jacinto "Maria Luisa" Home Medication Instructions JORDYN:[id number] Printed on:11/28/20 0911 Medication Information acetaminophen (TYLENOL) [...] g by mouth daily Consults: GI, cardiology, [facility] Disposition: Patient discharged in stable condition. Greater [...] TO GIIP CONSULT TO CARDIOLOGYIP CONSULT TO TETRYL NITRATOR OPERATOR Surgeries/procedures Performed: Treatments: Discharge Plan/Disposition: Home Hospital/Incidental [...] U-500 KWIKPEN) 500 UNIT/ML SOPN concentrated injection tqu509 units before breakfast, 110 units before lunch, [...] vaginal bleeding--pelvic US shows increased thickening of endometrium--SALES ADMINISTRATOR recommends further acute eval by SALES ADMINISTRATOR ONC--Dr Walsh has seen pt. Previously & recommended hysterectomy, which was postponed at that time due to other medical issues--blood sugar now controlled SIGNIFICANT DIAGNOSTIC STUDIES: Ct---pelvic US CONSULTANTS: SALES ADMINISTRATOR--cardio RECOMMENDED NEXT STEPS: To [facility]--[facility] & Dr Walsh (SALES ADMINISTRATOR ONC) ---resume aspirin when bleeding issues resolved DISCHARGE MEDICATIONS: Will Jacinto "Maria Luisa" Home Medication Instructions JORDYN:[id number] Printed on:11/25/20 1934 Medication Information acetaminophen (TYLENOL) 325 MG tablet [...] Complexity: follow up within 7-14 calendar days (50715) [] Severe Complexity: follow up within 7 calendar days (71216) FOLLOW UP TESTING, PENDING RESULTS OR REFERRALS AT TRANSITIONAL CARE VISIT: [] Yes [] No PENDING STUDIES: No DISPOSITION: Transfer to Acute Care Hospital FACILITY/HOME CARE AGENCY NAME: Follow up with Jared Guzman MD [address] [address] INSTRUCTIONS TO MA/SW DISCHARGE TIME: SIGNED: ART STAPLETON MD 11/25/2020, 1:49 PM documented in this encounter Chief Complaint and Reason for Visit Chief Complaint [facility] Chief Complaint [facility] Chief Complaint [facility] Chief Complaint [facility] Chief Complaint [facility]WORK Chief Complaint [facility] LABWORK LABWORK Chief Complaint LABWORK [facility] Chief Complaint [facility] Chief Complaint [facility] LABWORK LAB[facility] LABWORK Chief Complaint LABWORK LABWORK [facility] LABWORK [facility] Chief Complaint [facility] K LABWORK [facility] LABWORK [facility] Chief Complaint LABWORK [facility] LABWORK [facility] Chief Complaint [facility] LABWORK [facility] Chief Complaint LABWORK [facility] LABWORK Chief Complaint LABWORK [facility] LABWORK LABWORK Chief Complaint [facility] K [facility] LABWORK LABWORK LABWORK LABWORK Chief Complaint [facility] K [facility] WORK [facility] WORK LABWORK LABWORK LABWORK LABWORK LABWORK Chief Complaint Admit Date LABWORK September 22, 2024 5:00am LABWORK October 30, 2024 5:00am [facility] November 10, 2024 9:46am [facility] November 30, 2024 5:00am [facility] December 05, 2024 4:00am [facility] December 27 5:00am Chief Complaint Admit Date [facility] November 10, 2024 9:46am [facility] November 30, 2024 5:00am [facility] December 05, 2024 4:00am [facility] December 27 5:00am [facility] February 07, 2025 5: 00am Chief Complaint Admit Date [facility] December 27 5:00am [facility] February 07, 2025 5: 00am [facility] February 26, 2025 4 :00am Reason for Referral Specialty Diagnoses / Procedures Referred By Contac t Referred To Contact Oral Surgery Diagnoses Dental caries Jared Guzman [address] [place] [address] [facility] ORAL SURGERY [address] [place] [address] Referral ID Status Reason Start Date Expiration Date V isits Requested Visits Authorized [id number] Authorized 01/26/2023 01/27/2024 3 3 Scheduling Instructions Please call the pickup driver Clinic at [facility] at to schedule an appointment if one was not made for you today. Comments EXT #9, 12 Specialty Diagnoses / Procedures Referred By Contac t Referred To Contact Caridad Evans MD [address] [place] [address] Referral ID Status Reason Start Date Expiration Date V isits Requested Visits Authorized [id number] Pending Review 1 1 Specialty Diagnoses / Procedures Referred By Contac t Referred To Contact Radiology Diagnoses Nausea with vomiting, unspecified Procedures NM gastric emptying solid Elda Reaves (Kelley) [address] [place] [address] Referral ID Status Reason Start Date Expiration Date V isits Requested Visits Authorized [id number] Authorized 11/24/2023 11/23/2024 3 3 Referral ID Status Reason Start Date Expiration Date V isits Requested Visits Authorized [id number] Pending Review 11/24/2023 11/23/2024 3 3 Specialty Diagnoses / Procedures Referred By Contac t Referred To Contact Radiology Diagnoses Lung nodule Procedures CT chest wo IV contrast Herber Ramos APRN - CLINICAL TRIALS SPECIALIST [address] [place] [address] Referral ID Status Reason Start Date Expiration Date V isits Requested Visits Authorized [id number] Authorized 02/11/2024 02/10/2025 1 1 Specialty Diagnoses / Procedures Referred By Joe t Referred To Contact Radiology Diagnoses Solitary pulmonary nodule Procedures CT chest wo IV contrast Herber Ramos, SECURITY CONTROLS ASSESSOR - CLINICAL TRIALS SPECIALIST [address] [place] [address] Referral ID Status Reason Start Date Expiration Date V isits Requested Visits Authorized [id number] Pending Review 02/11/2024 02/10/2025 1 1 Additional Source Comments INFORMATION SOURCE (unrecogn ized section and content) DATE CREATED AUTHOR 05/13/2018 [facility] DATE CREATED AUTHOR AUTHOR'S ORGANIZ ATION 05/18/2018 [facility] DATE CREATED AUTHOR AUTHOR'S ORGANIZ ATION 01/09/2019 [facility] DATE CREATED AUTHOR AUTHOR'S ORGANIZ ATION 11/29/2020 [facility] DATE CREATED AUTHOR AUTHOR'S ORGANIZ ATION 09/25/2021 [facility] DATE CREATED AUTHOR AUTHOR'S ORGANIZ ATION 02/04/2022 [facility] DATE CREATED AUTHOR AUTHOR'S ORGANIZ ATION 11/23/2023 [facility] DATE CREATED AUTHOR AUTHOR'S ORGANIZ ATION 09/13/2025 [facility] DATE CREATED AUTHOR AUTHOR'S ORGANIZ ATION 09/19/2025 [facility] (unrecognized sect ion and content) No Status Records Found Reason for Visit (unrecogniz ed section and content) Reason Comments Leg Pain patient had right AK A last week and has had pain in RLE - mcc sent for eval d/t bloodwork results Reason [...] . Nabil Hill, DO [address] [place] [address] [facility] 2e Telemetry [address] [phone] Referral ID Status Reason Start Date Expiration Date Visits Re quested Visits Authorized [id number] 1 1 Reason Comments Chest Pain Vomiting Specialty Diagnoses / Procedures Referred By Contac t Referred To Contact Diagnoses Chest pain Chest pain, unspecified type Procedures . Nabil Hill, DO [address] [place] [address] [facility] 2e Telemetry [address] [place] [address] Reason Onset Date Comments Care Coordination 07/05/2023 ED Nuance Lung Nodule Reason Comments Nausea Pt brought in by EMS from [facility] with nausea/vomiting x1 day. +MALCOLM. States [...] . Nabil Hill, DO [address] [place] [address] [facility] Emergency Dept [address] [place] [address] Referral ID Status Reason Start Date Expiration Date Visits Re quested Visits Authorized [id number] 1 1 Reason Onset Date Comments Diabetes 08/30/2023 BGL Reason Onset Date Comments Diabetes 09/20/2023 BGL Specialty Diagnoses / Procedures Referred By Contac t Referred To Contact Diagnoses Hypoglycemia Procedures . Ricardo Spring MD [address] [place] [address] [facility] Emergency Dept [address] [place] [address] Referral ID Status Reason Start Date Expiration Date Visits Re quested Visits Authorized [id number] 1 1 Reason Comments Hypoglycemia Specialty Diagnoses / Procedures Referred By Contac t Referred To Contact Diagnoses Hypoglycemia Procedures . Ricardo Spring MD [address] [facility] [address] [place] [address] [facility] Emergency Dept [address] [place] [address] Reason Onset Date Comments Advice Only 11/09/2023 Reason Onset Date Comments Diabetes 11/23/2023 BGL Reason Comments Flu Symptoms Specialty Diagnoses / Procedures Referred By Contac t Referred To Contact Radiology Diagnoses Nausea with vomiting, unspecified Procedures NM gastric emptying solid Elda Reaves (Kelley) [address] [place] [address] Referral ID Status Reason Start Date Expiration Date V isits Requested Visits Authorized [id number] Authorized 11/24/2023 11/23/2024 3 3 Reason Onset Date Comments Diabetes 12/28/2023 BGL Reason Comments Nausea Vomiting Pt arrived by EMS fr [facility] due to N/V for 1 month. Upon [...] BGL Reason Comments Hypoglycemia Patient reports from [facility] for low blood sugar. Facility states that it was 48. Patient was fed and EMS sugar was 76. On arrival to room BGM was 102. Reason Comments Hyperglycemia Pt is sent from [facility] for low BGT. Pt reports he has [...] Abdominal Pain Pt presents to er [facility]. Pt presents with abd pain, diarrhea, chest pain. Pt presents aox4 speaking in full and complete sentences. Chest Pain Nausea Specialty Diagnoses / Procedures Referred By Contac t Referred To Contact Diagnoses Acute cholecystitis Procedures . Grace Ackerman MD [address] [place] [address] Phone: tel: fax: [facility] PCU [address] [place] [address] Phone: tel: Referral ID Status Reason Start Date Expiration Date Visits Re quested Visits Authorized [id number] 1 1 Reason Onset Date Comments Diabetes [...] of gallbladder without cholecystitis without obstruction Procedures [place] OFFICE/OUTPATIENT NEW HIGH MDM 60 MINUTES Rosy Ibarra, SECURITY CONTROLS ASSESSOR - CLINICAL TRIALS SPECIALIST [address] [place] [address] Phone: tel:[phone] fax:[phone] [facility] - [place] [address] [place] [address] Phone: tel: fax: Referral ID Status Reason Start Date Expiration Date Visits Requested Visits Authorized [id number] Pending Review Specialty Services Required 12/01/2024 12/01/2025 [...] of right leg above knee (HCC) Procedures [place] OFFICE/OUTPATIENT NEW MODERATE MDM 45 MINUTES Jared Guzman [address] [place] [address] Phone: tel: fax: [facility] - [place] [address] [facility] [address] [place] [address] Phone: tel: fax: Referral ID Status Reason Start Date Expiration Date Visits Requested Visits Authorized [id number] Pending Review Eval and Treat 01/24/2025 01/24/2026 [...] up Reason Onset Date Comments Diabetes 07/27/2025 Reason Onset Date Comments Diabetes 09/05/2025 BGL Ordered Prescriptions (unrec ognized section and [...] Status: Inactive Member Role Status Dates Raj LEON RESEARCH ASSOCIATE PROFESSOR-C Attending Provider Active Team Status: Inactive Member Role Status Dates Jared Guzman Attending Provider Active Reimbursement Representative Relationship Specialty Start Date End Date Jared Guzman [address] [place] [phone] PCP - General 04/25/19 Reimbursement Representative Relationship Specialty Start Date End Date Jared Guzman [address] [place] [phone] PCP - General 04/25/19 Reimbursement Representative Relationship Specialty Start Date End Date Jared Guzman [address] [place] [phone] PCP - General 04/25/19 Reimbursement Representative Relationship Specialty Start Date End Date Jared Guzman [address] [place] [address] PCP - General 04/25/19 Reimbursement Representative Relationship Specialty Start Date End Date Jared Guzman [address] [place] [address] PCP - General 04/25/19 Reimbursement Representative Relationship Specialty Start Date End Date Jared Guzman [address] [place] [address] PCP - General 04/25/19 Reimbursement Representative Relationship Specialty Start Date End Date Jared Guzman [address] [place] [address] PCP - General 04/25/19 Reimbursement Representative Relationship Specialty Start Date End Date Jared Guzman [address] [place] [phone] PCP - General 04/25/19 Reimbursement Representative Relationship Specialty Start Date End Date Jared Guzman [address] [place] [phone] PCP - General 04/25/19 Reimbursement Representative Relationship Specialty Start Date End Date Jared Guzman [address] [place] [address] PCP - General 04/25/19 Reimbursement Representative Relationship Specialty Start Date End Date Jared Guzman [address] PCP - General 04/25/19 Reimbursement Representative Relationship Specialty Start Date End Date Jared Guzman [address] PCP - General 04/25/19 Reimbursement Representative Relationship Specialty Start Date End Date Jared Guzman [address] [place] [address] PCP - General 04/25/19 Reimbursement Representative Relationship Specialty Start Date End Date Jared Guzman [address] [place] [address] PCP - General 04/25/19 Reimbursement Representative Relationship Specialty Start Date End Date Jared Guzman [address] [place] [address] PCP - General 04/25/19 Reimbursement Representative Relationship Specialty Start Date End Date Jared Guzman [address] [place] [phone] PCP - General 04/25/19 Reimbursement Representative Relationship Specialty Start Date End Date Jared Guzman [address] [place] [phone] PCP - General 04/25/19 Reimbursement Representative Relationship Specialty Start Date End Date Jared Guzman [address] [place] [phone] PCP - General 04/25/19 Reimbursement Representative Relationship Specialty Start Date End Date Jared Guzman [address] [place] [phone] PCP - General 04/25/19 Reimbursement Representative Relationship Specialty Start Date End Date Jared Guzman [address] [place] [phone] PCP - General 04/25/19 Reimbursement Representative Relationship Specialty Start Date End Date Jared Guzman [address] [place] [phone] PCP - General 04/25/19 Reimbursement Representative Relationship Specialty Start Date End Date Jared Guzman [address] [place] [phone] PCP - General 04/25/19 Reimbursement Representative Relationship Specialty Start Date End Date Jared Guzman [address] [place] [address] PCP - General 04/25/19 Reimbursement Representative Relationship Specialty Start Date End Date Jared Guzman [address] [place] [address] PCP - General 04/25/19 Reimbursement Representative Relationship Specialty Start Date End Date Jared Guzman [address] [place] [address] PCP - General 04/25/19 Reimbursement Representative Relationship Specialty Start Date End Date Jared Guzman [address] [place] [address] PCP - General 04/25/19 Reimbursement Representative Relationship Specialty Start Date End Date Jared Guzman [address] [place] [address] PCP - General 04/25/19 Reimbursement Representative Relationship Specialty Start Date End Date Jared Guzman [address] [place] [address] PCP - General 04/25/19 Reimbursement Representative Relationship Specialty Start Date End Date Jared Guzman [address] [place] [address] PCP - General 04/25/19 Reimbursement Representative Relationship Specialty Start Date End Date Jared Guzman [address] [place] [address] PCP - General 04/25/19 Reimbursement Representative Relationship Specialty Start Date End Date Jared Guzman [address] [place] [phone] PCP - General 04/25/19 Reimbursement Representative Relationship Specialty Start Date End Date Jared Guzman [address] [place] [phone] PCP - General 04/25/19 Reimbursement Representative Relationship Specialty Start Date End Date Jared Guzman [address] [place] [phone] PCP - General 04/25/19 Reimbursement Representative Relationship Specialty Start Date End Date Jared Guzman [address] [place] [phone] PCP - General 04/25/19 Reimbursement Representative Relationship Specialty Start Date End Date Jared Guzman [address] [place] [phone] PCP - General 04/25/19 Reimbursement Representative Relationship Specialty Start Date End Date Jared Guzman [address] [place] [phone] PCP - General 04/25/19 Reimbursement Representative Relationship Specialty Start Date End Date Jared Guzman [address] [place] [phone] PCP - General 04/25/19 Reimbursement Representative Relationship Specialty Start Date End Date Jared Guzman [address] [place] [phone] PCP - General 04/25/19 Reimbursement Representative Relationship Specialty Start Date End Date Jared Guzman [address] [place] [phone] PCP - General 04/25/19 Reimbursement Representative Relationship Specialty Start Date End Date Jared Guzman [address] [place] [address] PCP - General 04/25/19 Reimbursement Representative Relationship Specialty Start Date End Date Jared Guzman [address] [place] [address] PCP - General 04/25/19 Reimbursement Representative Relationship Specialty Start Date End Date Jared Guzman [address] [place] [address] PCP - General 04/25/19 Reimbursement Representative Relationship Specialty Start Date End Date Jared Guzman [address] [place] [address] PCP - General 04/25/19 Reimbursement Representative Relationship Specialty Start Date End Date Jared Guzman [address] [place] [address] PCP - General 04/25/19 [facility] Other Attendant 01/30/25 Reimbursement Representative Relationship Specialty Start Date End Date Jared Guzman [address] [place] [phone] PCP - General 04/25/19 Alejandro Mandel APRN - CNP [address] [place] [address] Nurse Practitioner Nurse Practitioner 02/01/25 [facility] Other Attendant 01/30/25 Team Status: Inactive [...] December 05, 2024 End: December 05, 2024 Reimbursement Representative Relationship Specialty Start Date End Date Jared Guzman [address] [place] [phone] PCP - General 04/25/19 Alejandro Mandel APRN - CNP [address] [place] [address] Nurse Practitioner Nurse Practitioner 02/01/25 [facility] Other Attendant 01/30/25 Reimbursement Representative Relationship Specialty Start Date End Date Jared Guzman [address] [place] [phone] PCP - General 04/25/19 Alejandro Mandel APRN - CLINICAL TRIALS SPECIALIST [address] [place] [address] Nurse Practitioner Nurse Practitioner 02/01/25 [facility] [facility] [place] Other Attendant 01/30/25 Reimbursement Representative Relationship Specialty Start Date End Date Jared Guzman [address] [place] [address] PCP - General 04/25/19 Alejandro Mandel APRN - CLINICAL TRIALS SPECIALIST [address] [place] [phone] Nurse Practitioner Nurse Practitioner 02/01/25 [facility] [place] Other Attendant 01/30/25 Team Status: Inactive Member Role Status Dates Jared LEON Attending Provider Active Sta rt: February 07, 2025 End: February 07, 2025 Team Status: Active Member Role Status Dates Jared LEON Attending Provider Active Sta rt: February 26, 2025 Reimbursement Representative Relationship Specialty Start Date End Date Jared Guzman [address] [place] [address] PCP - General 04/25/19 Alejandro Mandel APRN - CLINICAL TRIALS SPECIALIST [address] [place] [address] Nurse Practitioner Nurse Practitioner 02/01/25 [facility] [place] Other Attendant 01/30/25 Team Status: Inactive Member Role Status Dates Jared LEON Attending Provider Active Sta rt: February 26, 2025 End: February 26, 2025 Jared LEON Referring Provider Active Sta rt: February 26, 2025 End: February 26, 2025 Reimbursement Representative Relationship Specialty Start Date End Date Jared Guzman [address] [place] [address] PCP - General 04/25/19 Alejandro Mandel APRN - CLINICAL TRIALS SPECIALIST [address] [place] [address] Nurse Practitioner Nurse Practitioner 02/01/25 [facility] [place] Other Attendant 01/30/25 Reimbursement Representative Relationship Specialty Start Date End Date Jared Guzman [address] [place] [address] PCP - General 04/25/19 Alejandro Mandel APRN - CLINICAL TRIALS SPECIALIST [address] [place] [address] Nurse Practitioner Nurse Practitioner 02/01/25 [facility] [place] Other Attendant 01/30/25 Reimbursement Representative Relationship Specialty Start Date End Date Jared Guzman [address] [place] [address] PCP - General 04/25/19 Alejandro Mandel APRN - CLINICAL TRIALS SPECIALIST [address] [place] [address] Nurse Practitioner Nurse Practitioner 02/01/25 [facility] [place] Other Attendant 01/30/25 Reimbursement Representative Relationship Specialty Start Date End Date Jared Guzman [address] [place] [address] PCP - General 04/25/19 Alejandro Mandel SECURITY CONTROLS ASSESSOR - CLINICAL TRIALS SPECIALIST [address] [place] [address] Nurse Practitioner Nurse Practitioner 02/01/25 [facility] [place] Other Attendant 01/30/25 Reimbursement Representative Relationship Specialty Start Date End Date Jared Guzman [address] [place] [address] PCP - General 04/25/19 Alejandro Mandel SECURITY CONTROLS ASSESSOR - CLINICAL TRIALS SPECIALIST [address] [place] [phone] Nurse Practitioner Nurse Practitioner 02/01/25 [facility] [place] Other Attendant 01/30/25 Reimbursement Representative Relationship Specialty Start Date End Date Jared Guzman [address] [place] [address] PCP - General 04/25/19 Alejandro Mandel SECURITY CONTROLS ASSESSOR - CLINICAL TRIALS SPECIALIST [address] [place] [address] Nurse Practitioner Nurse Practitioner 02/01/25 [facility] [place] Other Attendant 01/30/25 Reimbursement Representative Relationship Specialty Start Date End Date Jared Guzman [address] [place] [address] PCP - General 04/25/19 Alejandro Mandel APRN - CLINICAL TRIALS SPECIALIST [address] [place] [address] Nurse Practitioner Nurse Practitioner 02/01/25 [facility] [place] Other Attendant 01/30/25 Reimbursement Representative Relationship Specialty Start Date End Date Jared Guzman [address] [place] [address] PCP - General 04/25/19 Alejandro Mandel APRN - CLINICAL TRIALS SPECIALIST [address] [place] [address] Nurse Practitioner Nurse Practitioner 02/01/25 [facility] [place] Other Attendant 01/30/25 Reimbursement Representative Relationship Specialty Start Date End Date Jared Guzman [address] [place] [address] PCP - General 04/25/19 Alejandro Mandel SECURITY CONTROLS ASSESSOR - CLINICAL TRIALS SPECIALIST [address] [place] [address] Nurse Practitioner Nurse Practitioner 02/01/25 [facility] [place] Other Attendant 01/30/25 Reimbursement Representative Relationship Specialty Start Date End Date Jared Guzman [address] [place] [address] PCP - General 04/25/19 Alejandro Mandel APRN - CNP [address] [place] [address] Nurse Practitioner Nurse Practitioner 02/01/25 [facility] Other Attendant 01/30/25 Reimbursement Representative Relationship Specialty Start Date End Date Jared Guzman [address] [place] [address] PCP - General 04/25/19 Alejandro Mandel APRN - CNP [address] [place] [address] [address] [place] [phone] Nurse Practitioner Nurse Practitioner 02/01/25 [facility] 01/30/25 Reimbursement Representative Relationship Specialty Start Date End Date Jared Guzman [address] [place] [address] PCP - General 04/25/19 Alejandro Mandel APRN - CNP [address] [place] [address] [address] [place] [phone] Nurse Practitioner Nurse Practitioner 02/01/25 [facility] Other Attendant 01/30/25 Scheduled Active and Recently Administ ered Medications (unrecognized section and content) Medication Order 03/06/2023 03/07/2023 03/08/2023 metoclopramide (Reglan) injection 10 mg (COMPLETED) 10 mg, IntraVENous, Once, On 03/08/23 at 1340, For 1 dose 1553 (Given - Provid er: Marimar Brown RN) Scheduled Medication Order 06/29/2023 06/30/2023 07/01/2023 acidophilus lactobacillus 1 capsule 1 capsule, Oral, 2 times daily, First dose on Wed06/28/23 at 0900 0719 (Not Given - Provider: Suzanne Sen RN - Reason: NPO)2019 (Given - Provider: Margo Alexis RN) 0900 (Given - Provider: Suzanne Sen RN)2099 (Given - Provider: Shaneka Robertson, PASTORA) 0900 (Given - Provider: David Lui RN) [...] 0846 (Given - Provider: David Lui, PASTORA) enoxaparin (Lovenox) syringe 40 mg 40 mg, [...] - Reason: NPO) 0857 (Given - Provider: Suaznne Sen RN) insulin NPH (Isophane) (HumuLIN N,NovoLIN [...] Suzanne Sen RN)2143 (Given - Provider: Shaneka Robertson, PASTORA) 0852 (Given - Provider: David Lui RN) [...] RN)2143 (Given - Provider: Shaneka Robertson RN) 0900 [...] used. 2018 (See Alternative - Provider: Margo Alexis, PASTORA) ondansetron ODT (Zofran-ODT) disintegrating tablet 4 mg (CANCELED) 4 mg, Oral, Every 8 hours PRN, nausea, vomiting, Starting on Wed06/28/23 at 0846, Patient should allow tablet to dissolve on tongue. Do not remove from blister pack until just before administering. 2017 (Given - Provider: Margo Alexis, RN) polyethylene glycol (PEG) 3350 (Miralax) packet [...] 0653 (New Bag - Prov ider: Tanya Conterras RN)0753 (Stopped - Provider: Karlos Garcia RN) [...] IntraVENous, IMG once PRN, contrast, Starting on 08/08/23 at 0819, For 1 dose 0819 (Given [...] Ioana Barahona LPN) 0940 (Given - Provider: oKta Luque, PASTORA)2100 (Canceled Entry - Provider: Automatic [...] Kota Luque RN)1641 (Given - Provider: Kota Luque, PASTORA) Insulin [...] Barahona LPN) 0948 (Given - Provider: Kota Luqeu RN)1228 (Given - Provider: Kota Luque RN) [...] 2330 (Given - Provider: Kaci Figueroa RN) 1957 (Given - Provider: Ioana Barahona LPN) 2250 (Canceled Entry - Provider: Automatic Discharge Provider - Comment: Automatically canceled at discontinue of medication order) sodium chloride 0.9 % bolus 500 mL (COMPLETED) 500 mL, IntraVENous, at 500 mL/hr, Administer over 1 Hours, Once, On Wed08/17/23 at 1255, For 1 dose 1342 (New Bag - Provider: Hebert Hill RN)1521 (Stopped - Provider: Hebert Hill RN) PRN [...] per system. 1808 (Given - Provider: Hebert Hill, PASTORA) glucagon [...] For 1 dose 1506 (Given - Provider: KARIN HernandezT) ondansetron (Zofran) injection 4 mg(Linked Group 2) [...] LPN)2050 (Given - Provider: Lashawn Chinchilla RN) 0914 [...] - Comment: give 90u scheduled per endocrinology) 09 (Given - Provider: Gricelda Harding RN) Insulin [...] at 2100 2045 (Given - Provider: Lashawn Cihnchilla RN) insulin NPH (Isophane) (HumuLIN N,NovoLIN N) injection 160 Units (CANCELED) 160 Units, SubCUTAneous, Every morning, First dose (after last modification) on Wed10/15/23 at 0900 0932 (Given - Provider: Joyce Moore LPN) 0921 (Given - Provider: Gricelda Harding RN) insulin regular (HumuLIN R U-500) CONCENTRATED injection 150 Units 150 Units, SubCUTAneous, Daily before lunch, First dose on Wed10/16/23 at 1100, Note High CONCENTRATION: 500 units/mL, Did you verify the patient is taking U-500 insulin? With whom? Yes, Patient, How does the patient measure their dose of U-500 insulin at home? Insulin pen 1217 (Given - Provider: Gricelda Harding RN) insulin regular (HumuLIN R U-500) CONCENTRATED injection 150 Units 150 Units, SubCUTAneous, Daily With Dinner, First dose on Wed10/16/23 at 1700, Note High CONCENTRATION: 500 units/mL, [...] daily, First dose on Gabi 10/07/23 at 2100 0943 (Given - Provider: Joyce Moore LPN)2047 (Given - Provider: Lashawn Chinchilla RN) 914 (Given - Provider: Gricelda Harding RN)2007 (Given - Provider: Lashawn Chinchilla RN) pantoprazole (ProtoNix) EC tablet 40 mg 40 mg, Oral, Daily before breakfast, First dose on Wed10/08/23 at 0700, Do not crush, chew, or split. 618 (Given - Provider: Roz Su RN) 0619 (Given - Provider: Lashawn Chinchilla, RN) polyethylene glycol (PEG) 3350 (Miralax) packet 17 g 17 g, Oral, Daily, First dose on Wed10/07/23 at 1900 0943 (Given - Provider: Joyce Moore LPN) 0914 (Given - Provider: Gricelda Harding, RN) sodium chloride 0.9% (NS) flush 10 mL 10 mL, IntraCATHeter, Every 12 hours, First dose on Wed10/12/23 at 1515, Administer to each lumen, regardless of whether or not fluids are infusing. Line Care. Use 10 mL or larger syringe. 0332 (Given - Provider: Roz Su RN)1512 (Given - Provider: Tanya Walker, PASTORA) 0405 (Given - Provider: Lashawn Chinchilla, PASTORA)1719 (Given - Provider: Gricelda Harding, RN) PRN Medication Order 10/15/2023 10/16/2023 10/17/2023 [...] As needed, low blood sugar, Starting on Wed10/07/23 at 1656, If blood glucose less than [...] after infusion or medication administration, Starting on Tu10/12/23 at 1501, Use 10 mL or larger [...] Daily with breakfast, First dose on Gabi 24 at 0800 0918 (Given - Provider: Morenita Hess RN) 1026 (Given - Provider: Ezio Dunlap RN) 0821 (Self Administered Via Pump - Provider: Ezio Dunlap RN) FLUoxetine (PROzac) capsule 40 mg 40 mg, Oral, Daily, First dose on Wed10/19/24 at 0900 0920 (Given - Provider: Morenita Hess RN) 102 (Given - Provider: Ezio Dunlap RN) 08 (Self Administered Via Pump - [...] 0900 0920 (Given - Provider: Morenita Hess RN)142 (Given - Provider: Morenita Hess RN)2108 (Given [...] call office 0917 (Given - Provider: Morenita Hess, PASTORA)1426 (Given - Provider: Morenita Hess RN)1700 (Not Given - Provider: Morenita Hess RN - Reason: Order parameters not met) magnesium hydroxide (Milk of Magnesia) 400 MG/5ML suspension 30 mL 30 mL, Oral, Nightly, First dose on Wed10/18/24 at 2115, Follow dose with 8 oz of water. 2108 (Given - Provider: Gill Edmonds, RN) 2010 (Given - Provider: Gill Edmonds, RN) menthol-zinc oxide (Calmoseptine - Risamine) 0.44-20.625 % ointment 1 Application 1 Application, Topical, 2 times daily, First dose on Wed10/20/24 at 1500, Apply topically after hygiene to posterior upper thighs, ischial, bilateral buttock. 0922 (Given - Provider: Morenita Hess RN)2122 (Given - Provider: Gill Edmonds, PASTORA) 102 (Given - Provider: Ezio Dunlap, RN)2015 (Given - Provider: Gill Edmonds, PASTORA) 0822 (Self Administered Via Pump - Provider: Ezio Dunlap RN) metoclopramide (Reglan) tablet 10 mg 10 mg, Oral, 4 times daily before meals & nightly, First dose on Wed10/18/24 at 2115, On hold since Gabi 10/19/2024 at 1120 until manually unheld 0700 (Dose [...] dry. 0922 (Given - Provider: Morenita Hess RN)211 (Given - Provider: Gill Edmonds RN) 1028 [...] Morenita Hess RN)1318 (Stopped - Provider: Morenita Hses RN)1806 (New Bag - Provider: Morenita Hess [...] mg from all sources in 24 hours. 820 (See Alternativ e - Provider: Ezio Dunlap RN) acetaminophen (Tylenol) tablet 650 mg(Linked Group 1) 650 mg, Oral, Every 6 hours PRN, mild pain (1-3), fever, For temp greater than 100.4 F (38 C), Starting on Wed10/18/24 at 2111, Maximum dose of acetaminophen is 4000 mg from all sources in 24 hours. 820 (Self Administe red Via Pump - Provider: [...] sedation for opioid reversal - MUST notify director of undergraduate admissions provider immediately after first dose, may give [...] BE BASED ON THE PRIMARY CLINICAL RECORDS. [employer] provides no warranty or guarantee of the accuracy or completeness of information in this document.
[2025-09-24 08:57] LABS: Hematocrit 36.6 % (37-47); Hemoglobin 10.9 g/dL (12.0-15.0); Mean Corp Hgb Conc 29.8 g/dL (32-36); Mean Corpuscular Volume 88.6 fL (81-99); Mean Platelet Vol. 10.7 fl (6.2-12.0); Platelet Count 303 K/mm3 (150-450); RBC Distribution Width CV 15.7 % (11.6-14.6); RBC Distribution Width SD 50.4 fl (35.1-43.9); Red Blood Count 4.13 M/mm3 (4.2-5.4); White Blood Count 7.3 K/mm3 (4.4-11.0)
[2025-09-24 09:28] LABS: Anion Gap 11 (5-15); BUN 20 mg/dL (4-19); BUN/Creat Ratio 29.5 RATIO (10-20); Calcium,Total 8.6 mg/dL (7.6-11.0); Carbon Dioxide 27.1 mmol/L (21.0-32.0); Chloride 102 mmol/L (98-108); Glucose 84 mg/dL (70-99); Potassium 4.3 mmol/L (3.3-5.1)
== END ==
LOC: OLS.SANC 05:00
PROVIDERS: Visit Provider Internal Medicine
DX: E11.9 Type 2 diabetes mellitus without complications (principal); E78.5 Hyperlipidemia, unspecified; I10 Essential (primary) hypertension
CPT/HCPCS: 36415; 80048; 85027

== ENCOUNTER → 2025-10-08 | Outpatient (REF) | payer MEDICARE, MEDICAID, SELFPAY ==
--- OUTSIDE RECORDS SUMMARY | 2025-10-08 04:15 | XMS RPT_ITS | CCD ---
Author Organization [facility] Care Team Providers Care Resin Coater Name Role Phone Kylah Luu Unavailable Unavailable [...] Referring Unavailable Jared Guzman Primary Care Provider [phone] Jared Guzman Primary Care Provider [phone] Jared Guzman Primary Care Provider [phone] Unavailable Primary Care Provider UnavailJared Miller Primary Care Provider [phone] Jared Guzman Primary Care Provider Jared Guzman [...] OLS, Peter Referring Provider Unavailab le Mandel FLEET ADMINISTRATIVE ASSISTANT - KRANTHI, Alejandro Unavailable [phone] KATSAROS, PETER Primary Care Unavailable VICENTE MIXON Attending Unavailable KATSAROS, PETER Primary Care Unavailable SHAWNA, ÁLVARO Attending Unavailable SHAWNA, ÁLVARO Admitting Unavailable SHAWN FARIAS Consulting Unavailable BASAR, FRAHAD Admitting Unavailable BASAR, FARHAD Attending Unavailable KATSAROS, [...] Active docusate sodium 50 mg / sennosides, fci 8.6 mg oral tablet (20 sources) take [...] inulin 200 mg / lactobacillus rhamnosus gg [id number] unt oral capsule (1 source) Start: 09-18-2020 [...] mouth spray 1 spray polyethylene glycol 3350 [id number] mg / potassium chloride 2970 mg / sodium bicarbonate 6740 mg / sodium chloride 5860 mg / sodium sulfate 00144 mg powder for oral solution (1 source) [...] Taking at Discharge) 20 ml albumin human, fci 250 mg/ml injection (2 sources) Human Serum [...] split. Active take 10 mg rectal ro [place] once daily as needed for constipation bisacodyl [...] ringers bolus castor oil 0.788 mg/mg / latvian balsam 0.087 mg/mg topical ointment (4 sources) Standardized Chemical Allergen Start: 01-17-2019 End: 09-17-2020 Balsam Emilia-[place] Oil (VENELEX) OINT ointment Apply topically daily [...] 15 g Start: 09-18-2020 15 g, Oral, HI N, Low blood sugar, Starting Wed09/18/20 at [...] Start: 10-12-2023 End: 10-17-2023 250 Units, IntraCATHeter, HI N, line care, after blood draws and [...] tablet by mouth 0 Active lactobacillus acidophilus [id number] unt / pectin 100 mg oral tablet (20 sources) End: 01-11-2024 take 1 tablet by mouth in the morning Lactobacillus Acid-Pectin (Acidophilus/Nyack Pectin) tablet Take 1 tablet by mouth [...] that apply): Intra-Abdominal Infection polyethylene glycol 3350 75201 mg powder for oral solution (20 sources) [...] suspension 15 g technetium Tc-99m sulfur colloid (Nycomed-IA) radio-isotope solution 1.1 millicurie (2 sources) Start: [...] hours, First dose on Wed10/11/23 at 0000, ADD-Gardiner bag, Suspected Indication (Select all that apply): [...] sources) Long-term current use of antibiotic; 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] 10-12-2023 Episodic Other aftercare (1 source) 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; 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: [Other senior care (current) drug therapy] Onset: 09-13-20 Episodic Other [...] 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: [Body mass index (BMI) 50.0-59.9, adult (FORMERLY [facility])] Onset: 06-07-20 Chronic Other nutritional; endocrine; and metabolic disorders (2 sources) Body mass index (BMI) 45.0-49.9, adult; 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: [Body mass index (BMI) 45.0-49.9, adult ([facility])] Onset: 04-06-20 Chronic Other screening for suspected [...] 3 06-28-2023 Episodic Other aftercare (5 sources) [facility] (current) use of insulin; 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: [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 Nurse voiced understanding [address] 09-06-2025 36 Diabetes managed by facility provider, no need to send [facility] BGL. Thank you [address] 09-05-2025 36 Patient's BGL Normal [facility] Microalb:Creat Ratio,Random URon 08-28-2025 Creatinine [Mass/Vol] 84.40 mg/dL Normal 28.00- 217.0 0 [facility] Comment on above: Performed By: #### L 502.0250 #### [facility] [address] [place], [address] MALB:CREAT 68.1 mg/g CRE High <30 mg/g CRE [facility] Comment on above: Performed By: #### L 502.0250 #### [facility] [address] [place], [address] MICROALBUMIN,UR 57.5 mg/L Normal <20 mg/L [facility] Comment on above: Performed By: #### L 502.0250 #### [facility] [address] [place], [address] Renal Profileon 08-28-2025 Albumin [Mass/Vol] 3.5 g/dL Normal 3.5-5.0 [facility] Comment on above: Order Comment: 103-1 Performed By: #### L 100.0500, L500.4050 #### [facility] [address] [place], [address] BUN/CRE 23.8 RATIO High - [facility] Comment on above: Order Comment: 103-1 Performed By: #### L 100.0500, L500.4050 #### [facility] [address] [place], [address] Calcium [Mass/Vol] 8.8 mg/dL Normal 7.6-11.0 [facility] Comment on above: Order Comment: 103-1 Performed By: #### L 100.0500, L500.4050 #### [facility] [address] [place], [address] Chloride [Moles/Vol] 99 mmol/L Normal 98-108 [facility] Comment on above: Order Comment: 103-1 Performed By: #### L 100.0500, L500.4050 #### [facility] [address] [place], [address] CO2 [Moles/Vol] 26.9 mmol/L Normal 21.0-32.0 [facility] Comment on above: Order Comment: 103-1 Performed By: #### L 100.0500, L500.4050 #### [facility] [address] [place], [address] Creatinine [Mass/Vol] 0.69 mg/dL Low 0.70-1.20 [facility] Comment on above: Order Comment: 103-1 Performed By: #### L 100.0500, L500.4050 #### [facility] [address] [place], [address] GAP 10 Normal 5-15 [facility] Comment on above: Order Comment: 103-1 Performed By: #### L 100.0500, L500.4050 #### [facility] [address] [place], [address] GFR/1.73 sq M.predicted among non-blacks MDRD (S/P/Bld) [Vol rate/Area] 101 mL/min/{1.73_m2} Normal >60 [facility] Comment on above: Order Comment: 103- Result Comment: mL/m in/1.73m2 CKD-EPI Creatinine Equation (2020) Performed By: #### L 100.0500, L500.4050 #### [facility] [address] [place], [address] Glucose [Mass/Vol] 314 mg/dL High 70-99 [facility] Comment on above: Order Comment: 103-1 Performed By: #### L 100.0500, L500.4050 #### [facility] [address] [place], [address] Potassium [Moles/Vol] 4.3 mmol/L Normal 3.3-5.1 [facility] Comment on above: Order Comment: 103-1 Result Comment: Hemo lysis present, Results??could be affected. ?? Performed By: #### L 100.0500, L500.4050 #### [facility] [address] [place], [address] Sodium [Moles/Vol] 136 mmol/L Normal 133-145 [facility] Comment on above: Order Comment: 103-1 Performed By: #### L 100.0500, L500.4050 #### [facility] [address] [place], [address] Urea nitrogen [Mass/Vol] 16 mg/dL Normal 4-19 [facility] Comment on above: Order Comment: 103-1 Performed By: #### L 100.0500, L500.4050 #### [facility] [address] [place], [address] Basic Metabolic Profile (BMP )on 08-23-2025 BUN/CRE 22.2 RATIO High 10- [facility] Comment on above: Order Comment: 103-1 Performed By: #### L 100.0500, L500.4050 #### [facility] [address] [place], [address] Calcium [Mass/Vol] 8.6 mg/dL Normal 7.6-11.0 [facility] Comment on above: Order Comment: 103-1 Performed By: #### L 100.0500, L500.4050 #### [facility] [address] [place], [address] Chloride [Moles/Vol] 102 mmol/L Normal 98-108 [facility] Comment on above: Order Comment: 103-1 Performed By: #### L 100.0500, L500.4050 #### [facility] [address] [place], [address] CO2 [Moles/Vol] 29.8 mmol/L Normal 21.0-32.0 [facility] Comment on above: Order Comment: 103-1 Performed By: #### L 100.0500, L500.4050 #### [facility] [address] [place], [address] Creatinine [Mass/Vol] 0.63 mg/dL Low 0.70-1.20 [facility] Comment on above: Order Comment: 103-1 Performed By: #### L 100.0500, L500.4050 #### [facility] [address] [place], [address] GAP 8 Normal 5-15 [facility] Comment on above: Order Comment: 103-1 Performed By: #### L 100.0500, L500.4050 #### [facility] [address] [place], [address] GFR/1.73 sq M.predicted among non-blacks MDRD (S/P/Bld) [Vol rate/Area] 103 mL/min/{1.73_m2} Normal >60 [facility] Comment on above: Order Comment: 103-1 Result Comment: mL/m in/1.73m2 CKD-EPI Creatinine Equation (2020) Performed By: #### L 100.0500, L500.4050 #### [facility] [address] [place], [address] Glucose [Mass/Vol] 122 mg/dL High 70-99 [facility] Comment on above: Order Comment: 103-1 Performed By: #### L 100.0500, L500.4050 #### [facility] [address] [place], [address] Potassium [Moles/Vol] 4.2 mmol/L Normal 3.3-5.1 [facility] Comment on above: Order Comment: 103-1 Performed By: #### L 100.0500, L500.4050 #### [facility] [address] [place], [address] Sodium [Moles/Vol] 140 mmol/L Normal 133-145 [facility] Comment on above: Order Comment: 103-1 Performed By: #### L 100.0500, L500.4050 #### [facility] [address] [place], [address] Urea nitrogen [Mass/Vol] 14 mg/dL Normal 4-19 [facility] Comment on above: Order Comment: 103-1 Performed By: #### L 100.0500, L500.4050 #### [facility] [address] [place], [address] CBC-Complete Blood Cnt No Di ffon 08-23-2025 Erythrocyte distribution width (RBC) [Ratio] 15.8 % High 11.6-14.6 [facility] Comment on above: Order Comment: 103-1 Performed By: #### L 100.0500, L500.4050 #### [facility] [address] [place], [address] Hematocrit (Bld) [Volume fraction] 35.7 % Low 37-47 [facility] Comment on above: Order Comment: 103-1 Performed By: #### L 100.0500, L500.4050 #### [facility] [address] [place], [address] Hemoglobin (Bld) [Mass/Vol] 10.8 g/dL Low 12.0-15.0 [facility] Comment on above: Order Comment: 103-1 Performed By: #### L 100.0500, L500.4050 #### [facility] [address] [place], [address] MCH (RBC) [Entitic mass] 26.3 pg Low 27.0-32.0 [facility] Comment on above: Order Comment: 103-1 Performed By: #### L 100.0500, L500.4050 #### [facility] [address] [place], [address] MCHC (RBC) [Mass/Vol] 30.3 g/dL Low 32-36 [facility] Comment on above: Order Comment: 103-1 Performed By: #### L 100.0500, L500.4050 #### [facility] [address] [place], [address] MCV (RBC) [Entitic vol] 87.1 fL Normal 81-99 [facility] Comment on above: Order Comment: 103-1 Performed By: #### L 100.0500, L500.4050 #### [facility] [address] [place], [address] Platelet mean volume (Bld) [Entitic vol] 10.0 fL Normal 6.2-12.0 [facility] Comment on above: Order Comment: 103-1 Performed By: #### L 100.0500, L500.4050 #### [facility] [address] [place], [address] Platelets (Bld) [#/Vol] 328 10*3/uL Normal 150-450 [facility] Comment on above: Order Comment: 103-1 Performed By: #### L 100.0500, L500.4050 #### [facility] [address] [place], [address] RBC (Bld) [#/Vol] 4.10 10*6/uL Low 4.2-5.4 [facility] Comment on above: Order Comment: 103-1 Performed By: #### L 100.0500, L500.4050 #### [facility] [address] [place], [address] RDW SD 50.4 fl High 35.1-43.9 [facility] Comment on above: Order Comment: 103-1 Performed By: #### L 100.0500, L500.4050 #### [facility] [address] [place], [address] WBC (Bld) [#/Vol] 6.6 10*3/uL Normal 4.4-11.0 [facility] Comment on above: Order Comment: 103-1 Performed By: #### L 100.0500, L500.4050 #### [facility] [address] [place], [address] 36on 07-30-2025 36 Faxed Recent Chart n ote to [employer] 36on 07-27-2025 36 Lease fax last OV to facility, [facility] Progress Noteon 07-26-2025 Progress Note 36on 07-24-2025 36 Spoke with nurse Johan clark at the facility. Confirmed the appointment date and time. Agrees to bring recommended documents. The PCP is Dr Jared Guzman 36 36on 07-23-2025 36 Patient's BGL 36 Spoke with PASTORA Barrera. She verbalized and understand below TE. 36on 07-20-2025 36 36on 07-19-2025 36 Scanned, see in the media tab. 36 Called to the facili ty, said they will fax it. Basic Metabolic Profile (BMP )on 07-19-2025 BUN/CRE 20.9 RATIO High 10-20 [facility] Comment on above: Order Comment: 103-1 Performed By: #### L 100.0500, L500.4050 #### [facility] [address] [place], [address] Calcium [Mass/Vol] 8.8 mg/dL Normal 7.6-11.0 [facility] Comment on above: Order Comment: 103-1 Performed By: #### L 100.0500, L500.4050 #### [facility] [address] [place], [address] Chloride [Moles/Vol] 103 mmol/L Normal 98-108 [facility] Comment on above: Order Comment: 103-1 Performed By: #### L 100.0500, L500.4050 #### [facility] [address] [place], [address] CO2 [Moles/Vol] 25.9 mmol/L Normal 21.0-32.0 [facility] Comment on above: Order Comment: 103-1 Performed By: #### L 100.0500, L500.4050 #### [facility] [address] [place], [address] Creatinine [Mass/Vol] 0.71 mg/dL Normal 0.70-1.20 [facility] Comment on above: Order Comment: 103-1 Performed By: #### L 100.0500, L500.4050 #### [facility] [address] [place], [address] GAP 10 Normal 5-15 [facility] Comment on above: Order Comment: 103-1 Performed By: #### L 100.0500, L500.4050 #### [facility] [address] [place], [address] GFR/1.73 sq M.predicted among non-blacks MDRD (S/P/Bld) [Vol rate/Area] 99 mL/min/{1.73_m2} Normal >60 [facility] Comment on above: Order Comment: 103-1 Result Comment: mL/m in/1.73m2 CKD-EPI Creatinine Equation (2020) Performed By: #### L 100.0500, L500.4050 #### [facility] [address] [place], [address] Glucose [Mass/Vol] 62 mg/dL Low 70-99 [facility] Comment on above: Order Comment: 103-1 Performed By: #### L 100.0500, L500.4050 #### [facility] [address] [place], [address] Potassium [Moles/Vol] 4.3 mmol/L Normal 3.3-5.1 [facility] Comment on above: Order Comment: 103-1 Performed By: #### L 100.0500, L500.4050 #### [facility] [address] [place], [address] Sodium [Moles/Vol] 139 mmol/L Normal 133-145 [facility] Comment on above: Order Comment: 103-1 Performed By: #### L 100.0500, L500.4050 #### [facility] [address] [place], [address] Urea nitrogen [Mass/Vol] 15 mg/dL Normal 4-19 [facility] Comment on above: Order Comment: 103-1 Performed By: #### L 100.0500, L500.4050 #### [facility] [address] [place], [address] CBC-Complete Blood Cnt No Di ffon 07-19-2025 Erythrocyte distribution width (RBC) [Ratio] 14.5 % Normal 11.6-14.6 [facility] Comment on above: Order Comment: 103-1 Performed By: #### L 100.0500, L500.4050 #### [facility] [address] [place], [address] Hematocrit (Bld) [Volume fraction] 38.0 % Normal 37-47 [facility] Comment on above: Order Comment: 103-1 Performed By: #### L 100.0500, L500.4050 #### [facility] [address] [place], [address] Hemoglobin (Bld) [Mass/Vol] 11.8 g/dL Low 12.0-15.0 [facility] Comment on above: Order Comment: 103-1 Performed By: #### L 100.0500, L500.4050 #### [facility] [address] [place], [address] MCH (RBC) [Entitic mass] 25.7 pg Low 27.0-32.0 [facility] Comment on above: Order Comment: 103-1 Performed By: #### L 100.0500, L500.4050 #### [facility] [address] [place], [address] MCHC (RBC) [Mass/Vol] 31.1 g/dL Low 32-36 [facility] Comment on above: Order Comment: 103-1 Performed By: #### L 100.0500, L500.4050 #### [facility] [address] [place], [address] MCV (RBC) [Entitic vol] 82.6 fL Normal 81-99 [facility] Comment on above: Order Comment: 103-1 Performed By: #### L 100.0500, L500.4050 #### [facility] [address] [place], [address] Platelet mean volume (Bld) [Entitic vol] 9.5 fL Normal 6.2-12.0 [facility] Comment on above: Order Comment: 103-1 Performed By: #### L 100.0500, L500.4050 #### [facility] [address] [place], [address] Platelets (Bld) [#/Vol] 411 10*3/uL Normal 150-450 [facility] Comment on above: Order Comment: 103-1 Performed By: #### L 100.0500, L500.4050 #### [facility] [address] [place], [address] RBC (Bld) [#/Vol] 4.60 10*6/uL Normal 4.2-5.4 [facility] Comment on above: Order Comment: 103-1 Performed By: #### L 100.0500, L500.4050 #### [facility] [address] [place], [address] RDW SD 43.6 fl Normal 35.1-43.9 [facility] Comment on above: Order Comment: 103-1 Performed By: #### L 100.0500, L500.4050 #### [facility] [address] [place], [place], [address] WBC (Bld) [#/Vol] 10.0 10*3/uL Normal 4.4-11.0 [facility] Comment on above: Order Comment: 103-1 Performed By: #### L 100.0500, L500.4050 #### [facility] [address] [place], [address] 36on 07-18-2025 36 Left a VM to faxed u s the MAR and med list. Normal [facility] 36 Patient's BGL Normal [facility] Urine Cultureon 07-13-2025 [facility] #4 Organism is too fastidious for routine susceptibility studies. Escherichia coli [place] Count 80,000-100,000 Proteus mirabilis Proteus mirabilis SWAR [place] Count 25,000-50,000 Staphylococcus warneri [place] Count 25,000-50,000 Escherichia coli: REACTION Globicatella sanguinis [...] S Vancomycin Islt TULIO 1 S Normal [facility] Comment on above: Performed By: #### L 100.0500, L500.4050 #### [facility] [address] [place], [address] Basic Metabolic Profile (BMP )on 07-12-2025 BUN/CRE 28.4 RATIO High 10-20 [facility] Comment on above: Order Comment: UNKNO WN METHOD OF COLLECTION CLEAN CATCH Performed By: #### M 100.2200, L400.0001 #### [facility] [address] [place], [address] Calcium [Mass/Vol] 8.5 mg/dL Normal 7.6-11.0 [facility] Comment on above: Order Comment: UNKNO WN METHOD OF COLLECTION CLEAN CATCH Performed By: #### M 100.2200, L400.0001 #### [facility] [address] [place], [address] Chloride [Moles/Vol] 99 mmol/L Normal 98-108 [facility] Comment on above: Order Comment: UNKNO WN METHOD OF COLLECTION CLEAN CATCH Performed By: #### M 100.2200, L400.0001 #### [facility] [address] [place], [address] CO2 [Moles/Vol] 27.3 mmol/L Normal 21.0-32.0 [facility] Comment on above: Order Comment: UNKNO WN METHOD OF COLLECTION CLEAN CATCH Performed By: #### M 100.2200, L400.0001 #### [facility] [address] [place], [address] Creatinine [Mass/Vol] 0.65 mg/dL Low 0.70-1.20 [facility] Comment on above: Order Comment: UNKNO WN METHOD OF COLLECTION CLEAN CATCH Performed By: #### M 100.2200, L400.0001 #### [facility] [address] [place], [address] GAP 10 Normal 5-15 [facility] Comment on above: Order Comment: UNKNO WN METHOD OF COLLECTION CLEAN CATCH Performed By: #### M 100.2200, L400.0001 #### [facility] [address] [place], [address] GFR/1.73 sq M.predicted among non-blacks MDRD (S/P/Bld) [Vol rate/Area] 102 mL/min/{1.73_m2} Normal >60 [facility] Comment on above: Order Comment: UNKNO WN METHOD OF COLLECTION CLEAN CATCH Result Comment: mL/m in/1.73m2 CKD-EPI Creatinine Equation (2020) Performed By: #### M 100.2200, L400.0001 #### [facility] [address] [place], [address] Glucose [Mass/Vol] 76 mg/dL Normal 70-99 [facility] Comment on above: Order Comment: UNKNO WN METHOD OF COLLECTION CLEAN CATCH Performed By: #### M 100.0, L400.0001 #### [facility] [address] [place], [address] Potassium [Moles/Vol] 4.2 mmol/L Normal 3.3-5.1 [facility] Comment on above: Order Comment: UNKNO WN METHOD OF COLLECTION CLEAN CATCH Performed By: #### M 100.2200, L400.0001 #### [facility] [address] [place], [address] Sodium [Moles/Vol] 137 mmol/L Normal 133-145 [facility] Comment on above: Order Comment: UNKNO WN METHOD OF COLLECTION CLEAN CATCH Performed By: #### M 100.2200, L400.0001 #### [facility] [address] [place], [address] Urea nitrogen [Mass/Vol] 18 mg/dL Normal 4-19 [facility] Comment on above: Order Comment: UNKNO WN METHOD OF COLLECTION CLEAN CATCH Performed By: #### M 100.2200, L400.0001 #### [facility] [address] [place], [address] CBC-Complete Blood Cnt No Di ffon 07-12-2025 Erythrocyte distribution width (RBC) [Ratio] 14.3 % Normal 11.6-14.6 [facility] Comment on above: Order Comment: UNKNO WN METHOD OF COLLECTION CLEAN CATCH Performed By: #### M 100.2200, L400.0001 #### [facility] [address] [place], [address] Hematocrit (Bld) [Volume fraction] 34.8 % Low 37-47 [facility] Comment on above: Order Comment: UNKNO WN METHOD OF COLLECTION CLEAN CATCH Performed By: #### M 100.2200, L400.0001 #### [facility] [address] [place], [address] Hemoglobin (Bld) [Mass/Vol] 10.8 g/dL Low 12.0-15.0 [facility] Comment on above: Order Comment: UNKNO WN METHOD OF COLLECTION CLEAN CATCH Performed By: #### M 100.2200, L400.0001 #### [facility] [address] [place], [address] MCH (RBC) [Entitic mass] 26.2 pg Low 27.0-32.0 [facility] Comment on above: Order Comment: UNKNO WN METHOD OF COLLECTION CLEAN CATCH Performed By: #### M 100.2200, L400.0001 #### [facility] [address] [place], [address] MCHC (RBC) [Mass/Vol] 31.0 g/dL Low 32-36 [facility] Comment on above: Order Comment: UNKNO WN METHOD OF COLLECTION CLEAN CATCH Performed By: #### M 100.2200, L400.0001 #### [facility] [address] [place], [address] MCV (RBC) [Entitic vol] 84.5 fL Normal 81-99 [facility] Comment on above: Order Comment: UNKNO WN METHOD OF COLLECTION CLEAN CATCH Performed By: #### M 100.2200, L400.0001 #### [facility] [address] [place], [address] Platelet mean volume (Bld) [Entitic vol] 10.8 fL Normal 6.2-12.0 [facility] Comment on above: Order Comment: UNKNO WN METHOD OF COLLECTION CLEAN CATCH Performed By: #### M 100.0, L400.0001 #### [facility] [address] [place], [address] Platelets (Bld) [#/Vol] 316 10*3/uL Normal 150-450 [facility] Comment on above: Order Comment: UNKNO WN METHOD OF COLLECTION CLEAN CATCH Performed By: #### M 100.0, L400.0001 #### [facility] [address] [place], [address] RBC (Bld) [#/Vol] 4.12 10*6/uL Low 4.2-5.4 [facility] Comment on above: Order Comment: UNKNO WN METHOD OF COLLECTION CLEAN CATCH Performed By: #### M 100.2200, L400.0001 #### [facility] [address] [place], [address] RDW SD 44.1 fl High 35.1-43.9 [facility] Comment on above: Order Comment: UNKNO WN METHOD OF COLLECTION CLEAN CATCH Performed By: #### M 100.2200, L400.0001 #### [facility] [address] [place], [address] WBC (Bld) [#/Vol] 11.9 10*3/uL High 4.4-11.0 [facility] Comment on above: Order Comment: UNKNO WN METHOD OF COLLECTION CLEAN CATCH Performed By: #### M 100.2200, L400.0001 #### [facility] [address] [place], [address] No Panel InformationOrdered By: Shirley Graves on 07-11-2025 P [place] 68 degrees [employer] Phone: HI Interval 182 ms [employer] Phone: [phone] QRS [place] -33 degrees [employer] Work Phone: QRSD Interval 113 ms [employer] Phone: QT Interval 420 ms [employer] Phone: QTC Interval 491 ms [employer] Work Phone: T Wave [place] 59 degrees [employer] Phone: [employer] Phone: No Panel Informationon 07-11 Shirley Graves D O - 07/11/2025 IMPRESSION: Sinus rhythm Abnormal R-wave progression, late transition Left ventricular hypertrophy Borderline prolonged QT interval Electronically Signed On 07-11-2025 00:56:44 EDT by Shirley Graves [facility] Vital signsOrdered By: Oscar Graves on 07-11-2025 Heart rate 82 /min bpm [employer] Phone: BETA HYDROXYBUTYRATEon 07-10 BETA HYDROXYBUTYRATE 7.3 mg/dL High <=2.8 [facility] [employer] [facility] Comment on above: Performed By: #### L AB17, LAB99, [id number], [id number] ####Composite Assembler: KEMAR ABEBE ([id number])[facility] (SBHLAB)[address] [place] [address] BLOOD GAS, VENOUSon 07-10-20 25 AMOUNT OF OXYGEN 2L Normal [facility] [employer] [facility] Comment on above: Result Comment: MARIE Doshi COMMENTS:Assessment of oxygenation is best done with an arterial blood gas determination. Reference ranges for pO2, bicarbonate, and base excess are for mixed venous blood. Specimens drawn from a peripheral vein will often have higher values. Performed By: #### L AB79 ####Composite Assembler: KEMAR ABEBE ([id number])[facility]ITAL[facility] (SBHLAB)[address] Base excess Calc (BldV) [Moles/Vol] 6.8 mmol/L High -3.0-3.0 [facility] Comment on above: Performed By: #### L AB79 ####Composite Assembler: KEMAR ABEBE ([id number])[facility]ITALA [facility]PITALEmmie (SBHLAB)[address] CO2 [Moles/Vol] 35.4 mmol/L High 23.0-30.0 [facility] Comment on above: Performed By: #### L AB79 ####Composite Assembler: KEMAR ABEBE ([id number])[facility]ITALA [facility] (SBHLAB)[address] [place] [address] [place] HCO3 (Bld) [Moles/Vol] 33.6 mmol/L High 21.0-30.0 [facility] Comment on above: Performed By: #### L AB79 ####Composite Assembler: KEMAR ABEBE ([id number])[facility]IT[facility] (SBHLAB)[address] Hemoglobin (Bld) [Mass/Vol] 12.9 g/dL Normal Screen only [facility] Comment on above: Performed By: #### L AB79 ####Composite Assembler: KEMAR ABEBE ([id number])[facility] (SBHLAB)[address] [place] [address] [place] OXYGEN (MM HG) IN VENOUS BLOOD 73.0 mm Hg Normal [facility] Comment on above: Performed By: #### L AB79 ####Composite Assembler: KEMAR ABEBE ([id number])[facility] (SBHLAB)[address] OXYGEN SATURATION (%) IN VENOUS BLOOD 93.3 % Normal [facility] Comment on above: Performed By: #### L AB79 ####Composite Assembler: KEMAR ABEBE ([id number])[facility] (SBHLAB)[address] PCO2, FARIBA 58.4 mm Hg High 40.0-55.0 [facility] Comment on above: Performed By: #### L AB79 ####Composite Assembler: KEMAR ABEBE ([id number])[facility]ITALA [place] (SBHLAB)[address] PH VENOUS 7.378 Normal 7.320-7.420 [facility] Comment on above: Performed By: #### L AB79 ####Composite Assembler: KEMAR ABEBE ([id number])[facility]ITALA [place] (SBHLAB)[address] SOURCE OF OXYGEN Nasal Cannula (LPM) Normal [facility] Comment on above: Performed By: #### L AB79 ####Composite Assembler: KEMAR ABEBE ([id number])[facility]ITAL[facility] [place] (SBHLAB)[address] CBC W Auto Differential pane l (Bld)on 07-10-2025 Basophils (Bld) [#/Vol] 0 10*3/uL 0.0 - 0.2 10*3/uL [facility] Basophils/100 WBC (Bld) 0.2 % 0.0 - 2.0 % [facility] Eosinophils (Bld) [#/Vol] 0 10*3/uL 0.0 - 0.5 10*3/uL [facility] Eosinophils/100 WBC (Bld) 0.1 % 0.0 - 6.0 % [facility] Erythrocyte distribution width (RBC) [Ratio] 14.7 % 11.5 - 15.0 % [facility] [employer] Hematocrit (Bld) [Volume fraction] 36.8 % Male: 40.0-52.0 ; Female: 35.0-47.0 [facility] Hemoglobin (Bld) [Mass/Vol] 11.6 g/dL Low 11.7 - 18.0 g/dL [facility] [employer] Immature granulocytes (Bld) [#/Vol] 0.1 10*3/uL High NINF - 0.1 10*3/uL [facility] Immature granulocytes/100 WBC (Bld) 0.6 % 0.0 - 2.0 % [facility] [employer] Interpretation and review of laboratory results Abnormal [facility] [employer] Lymphocytes (Bld) [#/Vol] 1 10*3/uL 1.0 - 4.3 10*3/uL [facility] Lymphocytes/100 WBC (Bld) 7.5 % Low 15.0 - 45.0 % [facility] MCH (RBC) [Entitic mass] 26.3 pg 26.0 - 34.0 pg [facility] MCHC (RBC) [Mass/Vol] 31.5 % 30.5 - 36.0 % [facility] MCV (RBC) [Entitic vol] 83.4 fL 77.0 - 99.0 fL [facility] [employer] Monocytes (Bld) [#/Vol] 0.5 10*3/uL 0.0 - 0.9 10*3/uL [facility] Monocytes/100 WBC (Bld) 3.9 % Low 5.0 - 13.0 % [facility] Neutrophils (Bld) [#/Vol] 11.4 10*3/uL High 1.8 - 7.5 10*3/uL [facility] Neutrophils/100 WBC (Bld) 87.7 % High 38.0 - 82.0 % [facility] Nucleated RBC/100 WBC (Bld) [Ratio] 0 % [facility] [employer] Platelet mean volume (Bld) [Entitic vol] 9.7 fL 9.0 - 12.7 fL [facility] [employer] Platelets (Bld) [#/Vol] 317 10*3/uL 140 - 440 10*3/uL [facility] [employer] RBC (Bld) [#/Vol] 4.41 10*6/uL Male: 4.40-5.90; Female: 3.80-5.20 [facility] [employer] WBC (Bld) [#/Vol] 12.9 10*3/uL High 3.6 - 10.7 10*3/uL [facility] CBC WITH AUTO DIFFERENTIALon 07-10-2025 Basophils (Bld) [#/Vol] 0.0 10*3/uL Normal 0.0-0.2 [facility] Comment on above: Performed By: #### L [id number] ####Composite Assembler: KEMAR LUDWIGSAAD ([id number])[facility] [place] (SBHLAB)[address] Basophils/100 WBC (Bld) 0.2 % Normal 0.0-2.0 [facility] Comment on above: Performed By: #### L [id number] ####Composite Assembler: KEMAR LUDWIGSAAD ([id number])[facility] [place] (SBHLAB)[address] Eosinophils (Bld) [#/Vol] 0.0 10*3/uL Normal 0.0-0.5 [facility] Comment on above: Performed By: #### L [id number] ####Composite Assembler: KEMAR ABEBE ([id number])[facility] [place] (SBHLAB)[address] Eosinophils/100 WBC (Bld) 0.1 % Normal 0.0-6.0 [facility] Comment on above: Performed By: #### L [id number] ####Composite Assembler: KEMAR LUDWIGSAAD ([id number])[facility]ITALA [place] (SBHLAB)[address] [place] [address] Erythrocyte distribution width (RBC) [Ratio] 14.7 % Normal 11.5-15.0 [facility] Comment on above: Performed By: #### L [id number] ####Composite Assembler: KEMAR LUDWIGSAAD ([id number])[facility] [place] (SBHLAB)[address] [place] [address] Hematocrit (Bld) [Volume fraction] 36.8 % Normal Male: 40.0-52.0 ; Female: 35.0-47.0 [facility] Comment on above: Performed By: #### L [id number] ####Composite Assembler: KEMAR ABEBE ([id number])[facility] [place] (SBHLAB)[address] Hemoglobin (Bld) [Mass/Vol] 11.6 g/dL Low 11.7-18.0 [facility] Comment on above: Performed By: #### L [id number] ####Composite Assembler: KEMAR ABEBE ([id number])[facility] [place] (SBHLAB)[address] IMMATURE GRANS % 0.6 % Normal 0.0-2.0 [facility] Comment on above: Performed By: #### L [id number] ####Composite Assembler: KEMAR ABEBE ([id number])[facility] [place] (SBHLAB)[address] IMMATURE GRANS ABSOLUTE 0.1 10*3/uL High <0.1 [facility] Comment on above: Performed By: #### L [id number] ####Composite Assembler: KEMAR ABEBE ([id number])[facility] [place] (SBHLAB)[address] Lymphocytes (Bld) [#/Vol] 1.0 10*3/uL Normal 1.0-4.3 [facility] Comment on above: Performed By: #### L [id number] ####Composite Assembler: KEMAR ABEBE ([id number])[facility] [place] (SBHLAB)[address] Lymphocytes/100 WBC (Bld) 7.5 % Low 15.0-45.0 [facility] Comment on above: Performed By: #### L [id number] ####Composite Assembler: KEMAR ABEBE ([id number])[facility] [place] (SBHLAB)[address] MCH (RBC) [Entitic mass] 26.3 pg Normal 26.0-34.0 [facility] Comment on above: Performed By: #### L [id number] ####Composite Assembler: KEMAR ABEBE ([id number])[facility] [place] (SBHLAB)[address] MCHC 31.5 % Normal 30.5-36.0 [facility] Comment on above: Performed By: #### L [id number] ####Composite Assembler: KEMAR MOMINHiginioSAAD ([id number])[facility] [place] (SBHLAB)[address] MCV (RBC) [Entitic vol] 83.4 fL Normal 77.0-99.0 S [facility] Comment on above: Performed By: #### L [id number] ####Composite Assembler: KEMAR ANDRAE ([id number])[facility] [place] (SBHLAB)[address] Monocytes (Bld) [#/Vol] 0.5 10*3/uL Normal 0.0-0.9 [facility] Comment on above: Performed By: #### L [id number] ####Composite Assembler: KEMAR LUDWIGSAAD ([id number])[facility] (SBHLAB)[address] Monocytes/100 WBC (Bld) 3.9 % Low 5.0-13.0 S [facility] Comment on above: Performed By: #### L [id number] ####Composite Assembler: KEMAR LUDWIGSAAD ([id number])[facility] [place] (SBHLAB)[address] NEUTROPHILS ABSOLUTE 11.4 10*3/uL High 1.8-7.5 [facility] Comment on above: Performed By: #### L [id number] ####Composite Assembler: KEMAR MOMINZOIESAAD ([id number])[facility] [place] (SBHLAB)[address] Neutrophils/100 WBC (Bld) 87.7 % High 38.0-82.0 [facility] Comment on above: Performed By: #### L [id number] ####Composite Assembler: KEMAR LUDWIGSAAD ([id number])[facility] (SBHLAB)[address] NRBC 0.0 /100 WBCs Normal 0.0-2.0 [facility] Comment on above: Performed By: #### L [id number] ####Composite Assembler: KEMAR ABEBE ([id number])[facility]ITALWarren DAW[facility] (SBHLAB)[address] Platelet mean volume (Bld) [Entitic vol] 9.7 fL Normal 9.0-12.7 [facility] Comment on above: Performed By: #### L [id number] ####Composite Assembler: KEMAR ABEBE ([id number])[facility] (SBHLAB)[address] [place] [address] Platelets (Bld) [#/Vol] 317 10*3/uL Normal 140-440 [facility] Comment on above: Performed By: #### L [id number] ####Composite Assembler: KEMAR ABEBE ([id number])[facility] (SBAB)[address] [place] [address] RBC (Bld) [#/Vol] 4.41 10*6/uL Normal Male: 4.40-5.90; Female: 3.80-5.20 [facility] Comment on above: Performed By: #### L [id number] ####Composite Assembler: KEMAR ABEBE ([id number])[facility] ([facility])[address] [place] [address] WBC (Bld) [#/Vol] 12.9 10*3/uL High 3.6-10.7 [facility] Comment on above: Performed By: #### L [id number] ####Composite Assembler: KEMAR ABEBE ([id number])[facility] ([facility])[address] [place] [address] COMPLETE URINALYSIS WITH REF KAYE TO CULTUREon 07-10-2025 BACTERIA (#/HPF) IN URINE Few Abnormal Negative [facility] Comment on above: Performed By: #### L [id number] ####Composite Assembler: MARCELA LUCERO ([id number])[facility] (S[facility])[address] [place] [address]#### [id number] ####Composite Assembler: KEMAR ABEBE ([id number])[facility]OS[facility]ITALWarren [facility]CLOV[facility]ITALEmmie (SBHLAB)[address] [place] [address] BILIRUBIN, TOTAL PRESENCE IN URINE Negative Normal Negative [facility] Comment on above: Performed By: #### L [id number] ####Composite Assembler: MARCELA LUCERO ([id number])[facility] ([facility])[address] [place] [address]#### [id number] ####Composite Assembler: KEMAR ABEBE ([id number])[facility] (SBAB)[address] [place] [address] Clarity (U) Clear Normal Clear [facility] Comment on above: Performed By: #### L [id number] ####Composite Assembler: MARCELA LUCERO ([id number])[facility] ([facility])[address] [place] [address]#### [id number] ####Composite Assembler: KEMAR ABEBE ([id number])[facility] (SBAB)[address] [place] [address] Color (U) Light Yellow Normal Lt. Yellow [facility] Comment on above: Performed By: #### L [id number] ####Composite Assembler: MARCELA LUCERO ([id number])[facility] ([facility])[address] [place] [address]#### [id number] ####Composite Assembler: KEMAR ABEBE ([id number])[facility] (SBAB)[address] [place] [address] Glucose (U) [Mass/Vol] 300 mg/dL Abnormal Janey l (<70) [facility] Comment on above: Performed By: #### L [id number] ####Composite Assembler: MARCELA LUCERO ([id number])[facility] ([facility])[address] [place] [address]#### [id number] ####Composite Assembler: KEMAR ABEBE ([id number])[facility] [place] (SBHLAB)[address] HEMOGLOBIN PRESENCE IN URINE Negative Normal Negative [facility] Comment on above: Performed By: #### L [id number] ####Composite Assembler: MARCELA LUCERO ([id number])[facility] ([facility])[address] [place] [address]#### [id number] ####Composite Assembler: KEMAR ABEBE ([id number])[facility] [place] (SBHLAB)[address] [place] [address] Ketones Ql (U) 10 mg/dL Abnormal Negative [facility] Comment on above: Performed By: #### L [id number] ####Composite Assembler: MARCELA LUCERO ([id number])[facility] ([facility])[address] [place] [address]#### [id number] ####Composite Assembler: KEMAR ABEBE ([id number])[facility]ITALA [facility]BCLOV[facility]PITALN (SBHLAB)[address] [place] [address] LEUKOCYTE ESTERASE PRESENCE IN URINE BY TEST STRIP 75 Kat/uL Abnormal Negative [facility] Comment on above: Performed By: #### L [id number] ####Composite Assembler: MARCELA LUCERO ([id number])[facility] ([facility])[address] [place] [address]#### [id number] ####Composite Assembler: KEMAR ABEBE ([id number])[facility] (SBHLAB)[address] [place] [address] MUCUS (#/LPF) IN URINE SEDIMENT Few Normal Negative [facility] Comment on above: Performed By: #### L [id number] ####Composite Assembler: MARCELA LUCERO ([id number])[facility] ([facility])[address] [place] [address]#### [id number] ####Composite Assembler: KEMAR ABEBE ([id number])[facility]ITALA [facility] (SBHLAB)[address] [place] [address] NITRITE PRESENCE IN URINE Negative Normal Negative [facility] Comment on above: Performed By: #### L [id number] ####Composite Assembler: MARCELA LUCERO ([id number])[facility] ([facility])[address] [place] [address]#### [id number] ####Composite Assembler: KEMAR BAEBE ([id number])[facility] SHERICLOVIS BAPTIST HOSPITALEmmie (SBHLAB)[address] [place] [address] pH (U) 5.0 [pH] Normal 5.0-8.0 [facility] Comment on above: Performed By: #### L [id number] ####Composite Assembler: MARCELA LUCERO ([id number])[facility] ([facility])[address] [place] [address]#### [id number] ####Composite Assembler: KEMAR ABEBE ([id number])[facility] (SBHLAB)[address] [place] [address] Protein (U) [Mass/Vol] 30 mg/dL Abnormal Negative [facility] Comment on above: Performed By: #### L [id number] ####Composite Assembler: MARCELA LUCERO ([id number])[facility] ([facility])[address] [place] [address]#### [id number] ####Composite Assembler: KEMAR ABEBE ([id number])[facility] (SBHLAB)[address] [place] [address] RBC (#/HPF) IN URINE SEDIMENT 0-2 Normal 0-2 [facility] Comment on above: Performed By: #### L [id number] ####Composite Assembler: MARCELA LUCERO ([id number])[facility] ([facility])[address] [place] [address]#### [id number] ####Composite Assembler: KEMAR ABEBE ([id number])[facility] (SBHLAB)[address] [place] [address] Specific gravity (U) [Rel density] 1.017 Normal 1.005-1.030 [facility] Comment on above: Result Comment: MARIE Doshi COMMENTS:This specimen has been reflexed to urine culture. Performed By: #### L [id number] ####Composite Assembler: MARCELA LUCERO ([id number])[facility] ([facility])[address] [place] [address]#### [id number] ####Composite Assembler: KEMAR ABEBE ([id number])[facility] (SBHLAB)[address] [place] [address] SQUAMOUS EPITHELIAL CELLS (#/HPF) IN URINE SEDIMENT 0-2 Normal 3-5 [facility] Comment on above: Performed By: #### L [id number] ####Composite Assembler: MARCELA LUCERO ([id number])[facility] ([facility])[address] [place] [address]#### [id number] ####Composite Assembler: KEMAR ABEBE ([id number])[facility] (SBHLAB)[address] [place] [address] UROBILINOGEN (MG/DL) IN URINE Normal Normal Normal (0-1) [facility] Comment on above: Performed By: #### L [id number] ####Composite Assembler: MARCELA LUCERO ([id number])[facility] ([facility])[address] [place] [address]#### [id number] ####Composite Assembler: KEMAR ABEBE ([id number])[facility] (SBHLAB)[address] [place] [address] WBC (LEUKOCYTE) (#/HPF) IN URINE SEDIMENT 11-25 Abnormal 0-5 [facility] Comment on above: Performed By: #### L [id number] ####Composite Assembler: MARCELA LUCERO ([id number])[facility] ([facility])[address] [place] [address] [place]#### [id number] ####Composite Assembler: KEMAR ABEBE ([id number])[facility] (SBHLAB)[address] COMPREHENSIVE METABOLIC PANE Gigi 07-10-2025 Albumin [Mass/Vol] 3.3 g/dL Low 3.5-5.0 [facility] Comment on above: Performed By: #### L AB17, LAB99, [id number], [id number] ####Composite Assembler: KEMAR ABEBE ([id number])[facility] [place] (SBHLAB)[address] ALP [Catalytic activity/Vol] 161 U/L Normal [facility] Comment on above: Performed By: #### L AB17, LAB99, [id number], [id number] ####Composite Assembler: KEMAR ABEBE ([id number])[facility] [place] (SBHLAB)[address] ALT [Catalytic activity/Vol] 17 U/L Normal [facility] Comment on above: Performed By: #### Elijah AB17, LAB99, [id number], [id number] ####Composite Assembler: KEMAR ABEBE ([id number])[facility] ([facility] Anion gap [Moles/Vol] 11 mmol/L Normal 3-13 [facility] Comment on above: Performed By: #### L AB17, LAB99, [id number], [id number] ####Composite Assembler: KEMAR ABEBE ([id number])[facility] ([facility])[address] AST [Catalytic activity/Vol] 16 U/L Normal <34 [facility] Comment on above: Performed By: #### L AB17, LAB99, [id number], [id number] ####Composite Assembler: KEMAR ABEBE ([id number])[facility] [place] (SB[facility]AB)[address] Bilirubin [Mass/Vol] 0.6 mg/dL Normal <1.2 [facility] Comment on above: Performed By: #### Elijah AB17, LAB99, [id number], [id number] ####Composite Assembler: KEMAR ABEBE ([id number])[facility] (SB[facility])[address] Calcium [Mass/Vol] 8.7 mg/dL Normal 8.4-10.2 [facility] Comment on above: Performed By: #### Elijah AB17, LAB99, [id number], [id number] ####Composite Assembler: KEMAR ABEBE ([id number])[facility] (SB[facility])[address] Chloride [Moles/Vol] 99 mmol/L Normal 98-107 [facility] Comment on above: Performed By: #### Elijah AB17, LAB99, [id number], [id number] ####Composite Assembler: KEMAR ABEBE ([id number])[facility] (SBHLAB)[address] [address] CO2 [Moles/Vol] 29 mmol/L Normal 22-29 [facility] Comment on above: Performed By: #### Elijah AB17, LAB99, [id number], [id number] ####Composite Assembler: KEMAR ABEBE ([id number])[facility] (SBHLAB)[address] Creatinine [Mass/Vol] 0.76 mg/dL Normal [facility] Comment on above: Performed By: #### Elijah AB17, LAB99, [id number], [id number] ####Composite Assembler: KEMAR ABEBE ([id number])[facility] ([facility])[address] GLOMERULAR FILTRATION RATE ML/MIN/1.73 SQ M.PREDICTED >90.0 Normal >60.0 [facility] Comment on above: Result Comment: Calc ulation based on the Chronic Kidney Disease Epidemiology Collaboration (CKD-EPI) equation refit without adjustment for race Performed By: #### L AB17, LAB99, [id number], [id number] ####Composite Assembler: KEMAR ABEBE ([id number])[facility] ([facility])[address] Glucose [Mass/Vol] 322 mg/dL High 74-100 [facility] Comment on above: Performed By: #### L AB17, LAB99, [id number], [id number] ####Composite Assembler: KEMAR ABEBE ([id number])[facility] ([facility])[address] Potassium [Moles/Vol] 4.5 mmol/L Normal 3.5-5.1 [facility] Comment on above: Result Comment: [facility] potassium values may be up to 0.5 mmol/L lower than serum values. Performed By: #### L AB17, LAB99, [id number], [id number] ####Composite Assembler: KEMAR LUDWIGSAAD ([id number])[facility] ([facility])[address] Protein [Mass/Vol] 7.0 g/dL Normal 6.4-8.3 [facility] Comment on above: Performed By: #### L AB17, LAB99, [id number], [id number] ####Composite Assembler: KEMAR ABEBE ([id number])[facility] ([facility])[address] Sodium [Moles/Vol] 139 mmol/L Normal 136-145 [facility] Comment on above: Performed By: #### L AB17, LAB99, [id number], [id number] ####Composite Assembler: KEMAR LUDWIGSAAD ([id number])[facility] ([facility])[address] [place] [address] [place] Urea nitrogen [Mass/Vol] 19 mg/dL Normal 9-23 [facility] Comment on above: Performed By: #### L AB17, LAB99, [id number], [id number] ####Composite Assembler: KEMAR ABEBE ([id number])[facility] (SB[facility])[address] [place], [place] [id number] [facility] CT ABDOMEN PELVIS W CONTRAST on 07-10-2025 CT ABDOMEN PELVIS W CONTRAST Normal [facility] CT Abdomen and Pelvis W cont rast Erica 07-10-2025 1. No acute findings or significant interval change, including cholelithiasis. Please see above for further details. Report Dictated on Electronically Signed By: Joel Haddad MD Electronically Signed Date/Time: 07/10/2025 8:23 PM EDT [facility] Patient Name: WILL ALVARADO : 1965 [...] again noted suggesting diastatic-type ventral hernia, similar. [facility] Joel Haddad MD - 07/10/2025 Patient [...] Electronically Signed Date/Time: 07/10/2025 8:23 PM EDT [facility] Radiology Study observation (narrative) [facility] CT Abdomen and Pelvis W cont rast IVOrdered By: Joel Haddad on 07-10-2025 [facility] Work Phone: Comprehensive metabolic 1998 panelon 07-10-2025 Albumin [Mass/Vol] 3.3 g/dL Low 3.5 - 5.0 g/dL [facility] ALP [Catalytic activity/Vol] 161 U/L [facility] ALT [Catalytic activity/Vol] 17 U/L [facility] Anion gap [Moles/Vol] 11 mmol/L 3 - 13 mmol/L [facility] AST [Catalytic activity/Vol] 16 U/L NINF - 34 U/L [facility] Bilirubin [Mass/Vol] 0.6 mg/dL NINF - 1.2 mg/dL [facility] Calcium [Mass/Vol] 8.7 mg/dL 8.4 - 10. 2 mg/dL [facility] Chloride [Moles/Vol] 99 mmol/L 98 - 10 7 mmol/L [facility] CO2 [Moles/Vol] 29 mmol/L 22 - 29 mmol/L [facility] Creatinine [Mass/Vol] 0.76 mg/dL [facility] GFR/1.73 sq M.predicted (S/P/Bld) [Vol rate/Area] - PINF [facility] Comment on above: Calculation based on the Chronic Kidney Disease Epidemiology Collaboration (CKD-EPI) equation refit without adjustment for race Glucose [Mass/Vol] 322 mg/dL High 74 - 100 mg/dL [facility] Potassium [Moles/Vol] 4.5 mmol/L 3.5 - 5.1 mmol/L [facility] Comment on above: Plasma potassium helen ues may be up to 0.5 mmol/L lower than serum values. Protein [Mass/Vol] 7 g/dL 6.4 - 8.3 g/dL [facility] Sodium [Moles/Vol] 139 mmol/L 136 - 145 mmol/L [facility] Urea nitrogen [Mass/Vol] 19 mg/dL 9 - 23 mg/dL [facility] ED Nursing Noteon 07-10-2025 ED Nursing Note Pt here to the ER vi a EMS from SNF c/o headache and nausea for the last couple of days. Normal [facility] ED Provider Noteon ED Provider Note Normal [facility] HIGH SENSITIVITY TROPONIN, S ERIAL BASELINEon 07-10-2025 TROPONIN HS SERIAL BASELINE <3 Normal [facility] Comment on above: Result Comment: In i ndividuals presenting with symptoms > 2h, a baseline troponin <= 5 ng/L suggests acutecardiac injury is unlikely and further serial testing is generally not indicated. Performed By: #### L AB17, LAB99, [id number], [id number] ####Composite Assembler: KEMAR ABEBE ([id number])[facility] (SBAB)[address] [place] [address] HIGH SENSITIVITY TROPONIN, S ERIAL, SECOND TESTon 07-10-2025 2H TROPONIN HS (SERIAL 2ND TROPONIN) <3 Normal [facility] Comment on above: Result Comment: Delt a value was unable to be calculated as both baseline and serial troponin tests were below the level of quantitation. As both baseline and 2h troponin values are below the level of quantitation, acute cardiac injury is unlikely. Performed By: #### L [id number] ####Composite Assembler: KEMAR ABEBE ([id number])[facility] (SB[facility])[address] LIPASEon 07-10-2025 Lipase [Catalytic activity/Vol] 8 U/L Normal <55 [facility] Comment on above: Performed By: #### L AB17, LAB99, [id number], [id number] ####Composite Assembler: KEMAR ABEBE ([id number])[facility] (SB[facility])[address] Laboratory - Chemistry and C hemistry - challengeon 07-10-2025 Beta hydroxybutyrate [Mass/Vol] 7.3 mg/dL High NINF - 2.8 mg/dL [facility] Lipase [Catalytic activity/Vol] 8 U/L NINF - 55 U/L [facility] Laboratory - Chemistry and C hemistry - challengeOrdered By: Denia Dailey on 07-10-2025 Base excess Calc (BldV) [Moles/Vol] 6.8 mmol/L High -3.0 - 3.0 mmol/L [facility] CO2 (BldV) [Partial pressure] 58.4 mm[Hg] High [facility] CO2 [Moles/Vol] 35.4 mmol/L High 23.0 - 30.0 mmol/L [facility] HCO3 (Bld) [Moles/Vol] 33.6 mmol/L High 21.0 - 30.0 mmol/L [facility] Oxygen (BldV) [Partial pressure] 73 mm[Hg] mm Hg [facility] pH (BldV) 7.378 [pH] 7.320 - 7.420 [facility] Laboratory - Hematology and Cell countsOrdered By: Denia Dailey on 07-10-2025 Hemoglobin (Bld) [Mass/Vol] 12.9 g/dL 7.0 g/dl [facility] Lipase [Catalytic activity/V ol]on 07-10-2025 Interpretation and review of laboratory results Normal [facility] No Panel Informationon 07-10 2h Troponin HS (Serial 2nd Troponin) ng/L ng/L [facility] Comment on above: Delta value was unab le to be calculated as both baseline and serial troponin tests were below the level of quantitation. As both baseline and 2h troponin values are below the level of quantitation, acute cardiac injury is unlikely. [facility] Troponin HS Serial Baseline ng/L ng/L [facility] Comment on above: In individuals prese nting with symptoms > 2h, a baseline troponin <= 5 ng/L suggests acute cardiac injury is unlikely and further serial testing is generally not indicated. [facility] Interpretation and review of laboratory results Abnormal [facility] No Panel InformationOrdered By: Denia Dailey on 07-10-2025 Amount Of Oxygen 2L [facility] Interpretation and review of laboratory results Abnormal [facility] Source Of Oxygen Nasal Cannula (LPM) [facility] Assessment of oxygenation is best done with an arterial blood gas determination. Reference ranges for pO2, bicarbonate, and base excess are for mixed venous blood. Specimens drawn from a peripheral vein will often have higher values. [facility] URINE CULTUREon 07-10-2025 Bacteria identified Cx Nom (U) Normal [facility] Comment on above: Performed By: #### L [id number] ####Composite Assembler: MARCELA LUCERO ([id number])[facility] (SAC[facility])[address] [place] [address]#### [id number] ####Composite Assembler: KEMAR ABEBE ([id number])[facility] (SBHLAB)[address] [place] [address] Urinalysis complete panel (U )Ordered By: Erickson Olmedo on 07-10-2025 Bacteria LM.HPF (Urine sed) [#/Area] Few Abnormal Negative /HPF [facility] Bilirubin Ql (U) Negative Negative mg/dL [facility] Clarity (U) Clear Clear [facility] Color (U) Light Yellow Lt. Yellow [facility] Epithelial cells.squamous LM.HPF (Urine sed) [#/Area] 0-2 [facility] Glucose Ql (U) 300 mg/dL Abnormal Normal (<70) [facility] Hemoglobin Ql (U) Negative Negative mg/dL [facility] Interpretation and review of laboratory results Abnormal [facility] Ketones (U) [Mass/Vol] 10 mg/dL Abnormal Negative [facility] Leukocyte esterase Test strip Ql (U) 75 Abnormal Negative Kat/uL [facility] Mucus LM.HPF (Urine sed) [#/Area] Few Negative /LPF [facility] Nitrite Ql (U) Negative Negative [facility] pH (U) 5.0 [pH] 5.0 - 8.0 pH [facility] Protein (U) [Mass/Vol] 30 mg/dL Abnormal Negative [facility] RBC LM.HPF (Urine sed) [#/Area] 0-2 [facility] Specific gravity (U) [Rel density] 1.017 1.005 - 1.030 [facility] Urobilinogen (U) [Mass/Vol] Normal Normal (0-1) mg/dL [facility] WBC LM.HPF (Urine sed) [#/Area] 11-25 Abnormal [facility] This specimen has be en reflexed to urine culture. [facility] Urinalysis, Routine (Dipstic k)on 07-10-2025 BILIRUBIN URINE Negative Normal Negative [facility] Comment on above: Order Comment: 103-1 Performed By: #### L 100.0500, L500.4050 #### [facility] [address] [place], [address] Clarity (U) Clear Normal Clear [facility] Comment on above: Order Comment: 103-1 Performed By: #### L 100.0500, L500.4050 #### [facility] [address] [place], [address] Color (U) Yellow Normal Yellow [facility] Comment on above: Order Comment: 103-1 Performed By: #### L 100.0500, L500.4050 #### [facility] [address] [place], [address] GLUCOSE, UR 50 mg/dl Abnormal Normal [facility] Comment on above: Order Comment: 103-1 Performed By: #### L 100.0500, L500.4050 #### [facility] [address] [place], [address] KETONE UR Negative Normal Negative [facility] Comment on above: Order Comment: 103-1 Performed By: #### L 100.0500, L500.4050 #### [facility] [address] [place], [address] LEUK ESTERASE 25 /ul Abnormal Negative [facility] Comment on above: Order Comment: 103-1 Performed By: #### L 100.0500, L500.4050 #### [facility] [address] [place], [address] Nitrite Ql (U) Negative Normal Negative [facility] Comment on above: Order Comment: 103-1 Performed By: #### L 100.0500, L500.4050 #### [facility] [address] [place], [address] OCCULT BLOOD-UR 10 /ul Abnormal Negative [facility] Comment on above: Order Comment: 103-1 Performed By: #### L 100.0500, L500.4050 #### [facility] [address] [place], [address] pH UR 6.0 Normal 5.0 - 8.0 [facility] Comment on above: Order Comment: 103-1 Performed By: #### L 100.0500, L500.4050 #### [facility] [address] [place], [address] PROT DIPSTX 100 mg/dl Abnormal Negative [facility] Comment on above: Order Comment: 103-1 Performed By: #### L 100.0500, L500.4050 #### [facility] [address] [place], [address] SP.GR. DIPSTX 1.020 Normal 1.002-1.030 [facility] Comment on above: Order Comment: 103-1 Performed By: #### L 100.0500, L500.4050 #### [facility] [address] [place], [address] UROBILI Normal Normal Normal [facility] Comment on above: Order Comment: 103-1 Performed By: #### L 100.0500, L500.4050 #### [facility] [address] [place], [address] Vital signsOrdered By: Trever Dailey on 07-10-2025 Oxygen saturation in Venous blood 93.3 % [facility] CBC-Complete Blood Cnt No Di ffon 07-06-2025 Erythrocyte distribution width (RBC) [Ratio] 14.4 % Normal 11.6-14.6 [facility] Comment on above: Order Comment: 103-1 Performed By: #### L 100.0500, L500.4050 #### [facility] [address] [place], [address] Hematocrit (Bld) [Volume fraction] 35.3 % Low 37-47 [facility] Comment on above: Order Comment: 103-1 Performed By: #### L 100.0500, L500.4050 #### [facility] [address] [place], [address] Hemoglobin (Bld) [Mass/Vol] 10.9 g/dL Low 12.0-15.0 [facility] Comment on above: Order Comment: 103-1 Performed By: #### L 100.0500, L500.4050 #### [facility] [address] [place], [address] MCH (RBC) [Entitic mass] 26.0 pg Low 27.0-32.0 [facility] Comment on above: Order Comment: 103-1 Performed By: #### L 100.0500, L500.4050 #### [facility] [address] [place], [address] MCHC (RBC) [Mass/Vol] 30.9 g/dL Low 32-36 [facility] Comment on above: Order Comment: 103-1 Performed By: #### L 100.0500, L500.4050 #### [facility] [address] [place], [address] MCV (RBC) [Entitic vol] 84.0 fL Normal 81-99 [facility] Comment on above: Order Comment: 103-1 Performed By: #### L 100.0500, L500.4050 #### [facility] [address] [place], [address] Platelet mean volume (Bld) [Entitic vol] 10.4 fL Normal 6.2-12.0 [facility] Comment on above: Order Comment: 103-1 Performed By: #### L 100.0500, L500.4050 #### [facility] [address] [place], [address] Platelets (Bld) [#/Vol] 317 10*3/uL Normal 150-450 [facility] Comment on above: Order Comment: 103-1 Performed By: #### L 100.0500, L500.4050 #### [facility] [address] [place], [address] RBC (Bld) [#/Vol] 4.20 10*6/uL Normal 4.2-5.4 [facility] Comment on above: Order Comment: 103-1 Performed By: #### L 100.0500, L500.4050 #### [facility] [address] [place], [address] RDW SD 43.9 fl Normal 35.1-43.9 [facility] Comment on above: Order Comment: 103-1 Performed By: #### L 100.0500, L500.4050 #### [facility] [address] [place], [address] WBC (Bld) [#/Vol] 7.3 10*3/uL Normal 4.4-11.0 [facility] Comment on above: Order Comment: 103-1 Performed By: #### L 100.0500, L500.4050 #### [facility] [address] [place], [address] Comprehensive Metabolic Prof macho 07-06-2025 Albumin [Mass/Vol] 3.7 g/dL Normal 3.5-5.0 [facility] Comment on above: Order Comment: 103-1 Performed By: #### L 100.0500, L500.4050 #### [facility] [address] [place], [address] Albumin/Globulin [Mass ratio] 1.3 {ratio} Normal 0.9-2.4 [facility] Comment on above: Order Comment: 103-1 Performed By: #### L 100.0500, L500.4050 #### [facility] [address] [place], [address] ALK PHOS 196 U/L High 35-104 [facility] Comment on above: Order Comment: 103-1 Performed By: #### L 100.0500, L500.4050 #### [facility] [address] [place], [address] ALT [Catalytic activity/Vol] 17 U/L Normal <=34 [facility] Comment on above: Order Comment: 103-1 Performed By: #### L 100.0500, L500.4050 #### [facility] [address] [place], [address] AST [Catalytic activity/Vol] 16 U/L Normal <=31 [facility] Comment on above: Order Comment: 103-1 Performed By: #### L 100.0500, L500.4050 #### [facility] [address] [place], [address] Bilirubin [Mass/Vol] 0.35 mg/dL Normal 0.00-1.30 [facility] Comment on above: Order Comment: 103-1 Performed By: #### L 100.0500, L500.4050 #### [facility] [address] [place], [address] BUN/CRE 30.4 RATIO High 10-20 [facility] Comment on above: Order Comment: 103-1 Performed By: #### L 100.0500, L500.4050 #### [facility] [address] [place], [address] Calcium [Mass/Vol] 9.0 mg/dL Normal 7.6-11.0 [facility] Comment on above: Order Comment: 103-1 Performed By: #### L 100.0500, L500.4050 #### [facility] [address] [place], [address] Chloride [Moles/Vol] 100 mmol/L Normal 98-108 [facility] Comment on above: Order Comment: 103-1 Performed By: #### L 100.0500, L500.4050 #### [facility] [address] [place], [address] CO2 [Moles/Vol] 27.9 mmol/L Normal 21.0-32.0 [facility] Comment on above: Order Comment: 103-1 Performed By: #### L 100.0500, L500.4050 #### [facility] [address] [place], [address] Creatinine [Mass/Vol] 0.65 mg/dL Low 0.70-1.20 [facility] Comment on above: Order Comment: 103-1 Performed By: #### L 100.0500, L500.4050 #### [facility] [address] [place], [address] GAP 9 Normal 5-15 [facility] Comment on above: Order Comment: 103-1 Performed By: #### L 100.0500, L500.4050 #### [facility] [address] [place], [address] GFR/1.73 sq M.predicted among non-blacks MDRD (S/P/Bld) [Vol rate/Area] 102 mL/min/{1.73_m2} Normal >60 [facility] Comment on above: Order Comment: 103-1 Result Comment: mL/m in/1.73m2 CKD-EPI Creatinine Equation (2020) Performed By: #### L 100.0500, L500.4050 #### [facility] [address] [place], [address] Globulin (S) [Mass/Vol] 2.9 g/dL Normal 2.2-4.2 [facility] Comment on above: Order Comment: 103-1 Performed By: #### L 100.0500, L500.4050 #### [facility] [address] [place], [address] Glucose [Mass/Vol] 166 mg/dL High 70-99 [facility] Comment on above: Order Comment: 103-1 Performed By: #### L 100.0500, L500.4050 #### [facility] [address] [place], [address] Potassium [Moles/Vol] 4.0 mmol/L Normal 3.3-5.1 [facility] Comment on above: Order Comment: 103-1 Performed By: #### L 100.0500, L500.4050 #### [facility] [address] [place], [address] Sodium [Moles/Vol] 137 mmol/L Normal 133-145 [facility] Comment on above: Order Comment: 103-1 Performed By: #### L 100.0500, L500.4050 #### [facility] [address] [place], [address] T PROT 6.6 g/dL Normal 5.9-8.4 [facility] Comment on above: Order Comment: 103-1 Performed By: #### L 100.0500, L500.4050 #### [facility] [address] [place], [address] Urea nitrogen [Mass/Vol] 20 mg/dL High 4-19 [facility] Comment on above: Order Comment: 103-1 Performed By: #### L 100.0500, L500.4050 #### [facility] [address] [place], [address] Hemoglobin A1con 07-06-2025 HbA1c (Bld) [Mass fraction] 7.5 % High <=5.6 [facility] Comment on above: Order Comment: 103- Result Comment: Norm al < 5.7 % Prediabetic 5.7 - 6.4 % Diabetic >or= 6.5 % Please note range changes. Performed By: #### L 100.0500, L500.4050 #### [facility] [address] [place], [address] Lipid Profileon 07-06-2025 CHOL:HDL 3.49 Normal [facility] Comment on above: Order Comment: 103- Performed By: #### L 100.0500, L500.4050 #### [facility] [address] [place], [address] Cholesterol [Mass/Vol] 162 mg/dL Normal <=200 [facility] Comment on above: Order Comment: 1031 Result Comment: Chol esterol level, Desirable <200 mg/dL Borderline high cholesterol 200-239 mg/dL High cholesterol >=240 mg/dL Recommendations of the NCEP Adult Treatment Panel for the following risk-cutoff thresholds for the [place] population. Performed By: #### L 100.0500, L500.4050 #### [facility] [address] [place], [address] Cholesterol in HDL [Mass/Vol] 46 mg/dL Normal [facility] Comment on above: Order Comment: 103-1 Result Comment: Sophy onal Cholesterol Education Program (NCEP) guidelines: <40 mg/dL: Low HDL-cholesterol (major risk factor for CHD) >= 60 mg/dL: High HDL-cholesterol (negative risk factor for CHD) HDL-cholesterol is affected by a number of factors, e.g. smoking, exercise, hormones, sex and age. Performed By: #### L 100.0500, L500.4050 #### [facility] [address] [place], [address] Cholesterol in LDL [Mass/Vol] 88 mg/dL Normal [facility] Comment on above: Order Comment: 103-1 Result Comment: [facility] gaezwl=330-479 mg/dL Higher Yarp=121 mg/dL or greater Friedwald Equation for LDL-C Performed By: #### L 100.0500, L500.4050 #### [facility] [address] [place], [address] Cholesterol in VLDL [Mass/Vol] 28 mg/dL Normal 5-40 [facility] Comment on above: Order Comment: 103-1 Performed By: #### L 100.0500, L500.4050 #### [facility] [address] [place], [address] Triglyceride [Mass/Vol] 139 mg/dL Normal [facility] Comment on above: Order Comment: 103-1 Result Comment: The drugs N-Acetylcysteine and Metamizole may falsely depress this assay. Normal range: <150 mg/dL Borderline High: 150-199 mg/dL High: 200-499 mg/dL Very High: >500 mg/dL Performed By: #### L 100.0500, L500.4050 #### [facility] [address] [place], [address] Microalb:Creat Ratio,Random URon 07-06-2025 Creatinine [Mass/Vol] 45.20 mg/dL Normal 28.00- 217.0 0 [facility] Comment on above: Performed By: #### L 100.0500, L500.4050 #### [facility] [address] [place], [address] MALB:CREAT 63.9 mg/g CRE High <30 mg/g CRE [facility] Comment on above: Performed By: #### L 100.0500, L500.4050 #### [facility] [address] [place], [address] MICROALBUMIN,UR 28.9 mg/L Normal <20 mg/L [facility] Comment on above: Performed By: #### L 100.0500, L500.4050 #### [facility] [address] [place], [address] 3607-05-2025 36 Appointment schedule d on 07/26 at 11am [address] 07-04-2025 36 Patient's BGL 04/26-07/02/2025 [place] [address] I called the facilit y to request another copy. [place] 9021306-29-2025 36 Downloaded blood glu cose log and insulin administration MAR to media tab for the period of 06/08 through 06/29 for provider review. [place] [address] Spoke with Susan KIM at the [facility] and requested a new BGL with accompanying insulin administration record for 06/08-06/29 for provider review. States she will send it herself. Will watch for information and upload into media tab. [place] 9021306-28-2025 36 The pages are cut of f I cannot see the doses completely [address] 06-27-2025 36 Patient's BGL [place] 9021306-26-2025 36 Spoke with Sheri kelley t the facility. She will re-fax the insulin administration records for 05/29-06/18 for comparison with the BG log sent previously. [address] 06-22-2025 36 Unfortunately half t he document is cut off I cannot see what the Humulin U-500 base dose is, its on 1 page On the second page I can see the sliding scale [place] [address] Scanned faxed MAR fr om facility into media tab for dates 06/08/25 - 06/22/25 36on 06-21-2025 36 Spoke with Sheri kelley t the facility who says she will fax the MAR record for 05/29 through 06/18 for comparison with the BGL by provider. Fax number provided was [phone] 36on 06-20-2025 36 Spoke with RN caring for Maria Luisa at the facility regarding need for MAR for 05/29 through 06/18 to be faxed for provider review for use of SSI and any missed doses. She states she will fax the MAR records from 05/29 - 06/18 to [phone]. 36 Please ask for MAR a nd med list I need to know if SS is ever used. Thank you [place] [address]on 06-19-2025 36 Patient's BGL [address] 06-14-2025 36 Faxed detailed insul in instructions to Nabil at the [facility] as requested. Confirmation received via email. See media tab. 36on 06-13-[address] 06-12-2025 36 Phoned [facility] and spoke with pt's nurse, Sheri. Released the message to her. Agrees to fax her BGL and pt's med rec in 2 weeks to our office [phone] [place], [place] [address] 36 [place] [address]on 06-11-2025 36 Patient's BGL Basic Metabolic Profile (BMP )on 06-11-2025 BUN/CRE 23.2 RATIO High 10-20 [facility] Comment on above: Order Comment: 103-1 Performed By: #### L 100.0500, L500.4050 #### [facility] [address] [place], [address] Calcium [Mass/Vol] 9.1 mg/dL Normal 7.6-11.0 [facility] Comment on above: Order Comment: 103-1 Performed By: #### L 100.0500, L500.4050 #### [facility] [address] [place], [address] Chloride [Moles/Vol] 104 mmol/L Normal 98-108 [facility] Comment on above: Order Comment: 103-1 Performed By: #### L 100.0500, L500.4050 #### [facility] [address] [place], [address] CO2 [Moles/Vol] 29.0 mmol/L Normal 21.0-32.0 [facility] Comment on above: Order Comment: 103-1 Performed By: #### L 100.0500, L500.4050 #### [facility] [address] [place], [address] Creatinine [Mass/Vol] 0.67 mg/dL Low 0.70-1.20 [facility] Comment on above: Order Comment: 103-1 Performed By: #### L 100.0500, L500.4050 #### [facility] [address] [place], [address] GAP 9 Normal 5-15 [facility] Comment on above: Order Comment: 103-1 Performed By: #### L 100.0500, L500.4050 #### [facility] [address] [place], [address] GFR/1.73 sq M.predicted among non-blacks MDRD (S/P/Bld) [Vol rate/Area] 101 mL/min/{1.73_m2} Normal >60 [facility] Comment on above: Order Comment: 103-1 Result Comment: mL/m in/1.73m2 CKD-EPI Creatinine Equation (2020) Performed By: #### L 100.0500, L500.4050 #### [facility] [address] [place], [address] Glucose [Mass/Vol] 136 mg/dL High 70-99 [facility] Comment on above: Order Comment: 103-1 Performed By: #### L 100.0500, L500.4050 #### [facility] [address] [place], [address] Potassium [Moles/Vol] 4.3 mmol/L Normal 3.3-5.1 [facility] Comment on above: Order Comment: 103-1 Performed By: #### L 100.0500, L500.4050 #### [facility] [address] [place], [address] Sodium [Moles/Vol] 142 mmol/L Normal 133-145 [facility] Comment on above: Order Comment: 103-1 Performed By: #### L 100.0500, L500.4050 #### [facility] [address] [place], [address] Urea nitrogen [Mass/Vol] 16 mg/dL Normal 4-19 [facility] Comment on above: Order Comment: 103-1 Performed By: #### L 100.0500, L500.4050 #### [facility] [address] [place], [address] CBC-Complete Blood Cnt No Di ffon 06-11-2025 Erythrocyte distribution width (RBC) [Ratio] 14.7 % High 11.6-14.6 [facility] Comment on above: Order Comment: 103.1 Performed By: #### L 500.2500, L100.0500 #### [facility] [address] [place], [address] Hematocrit (Bld) [Volume fraction] 34.7 % Low 37-47 [facility] Comment on above: Order Comment: 103.1 Performed By: #### L 500.2500, L100.0500 #### [facility] [address] [place], [address] Hemoglobin (Bld) [Mass/Vol] 10.5 g/dL Low 12.0-15.0 [facility] Comment on above: Order Comment: 103.1 Performed By: #### L 500.2500, L100.0500 #### [facility] [address] [place], [address] MCH (RBC) [Entitic mass] 26.5 pg Low 27.0-32.0 [facility] Comment on above: Order Comment: 103.1 Performed By: #### L 500.2500, L100.0500 #### [facility] [address] [place], [address] MCHC (RBC) [Mass/Vol] 30.3 g/dL Low 32-36 [facility] Comment on above: Order Comment: 103.1 Performed By: #### L 500.2500, L100.0500 #### [facility] [address] [place], [address] MCV (RBC) [Entitic vol] 87.6 fL Normal 81-99 [facility] Comment on above: Order Comment: 103.1 Performed By: #### L 500.2500, L100.0500 #### [facility] [address] [place], [address] Platelet mean volume (Bld) [Entitic vol] 10.3 fL Normal 6.2-12.0 [facility] Comment on above: Order Comment: 103.1 Performed By: #### L 500.2500, L100.0500 #### [facility] [address] [place], [address] Platelets (Bld) [#/Vol] 295 10*3/uL Normal 150-450 [facility] Comment on above: Order Comment: 103.1 Performed By: #### L 500.2500, L100.0500 #### [facility] [address] [place], [address] RBC (Bld) [#/Vol] 3.96 10*6/uL Low 4.2-5.4 [facility] Comment on above: Order Comment: 103.1 Performed By: #### L 500.2500, L100.0500 #### [facility] [address] [place], [address] RDW SD 47.3 fl High 35.1-43.9 [facility] Comment on above: Order Comment: 103.1 Performed By: #### L 500.2500, L100.0500 #### [facility] [address] [place], [address] WBC (Bld) [#/Vol] 7.6 10*3/uL Normal 4.4-11.0 [facility] Comment on above: Order Comment: 103.1 Performed By: #### L 500.2500, L100.0500 #### [facility] [address] [place], [address] [id number] 06-07-2025 [id number] Normal [facility] 36on 06-07-2025 36 Patient's BGL Normal [facility] Anesthesia Noteon 06-07-2025 Anesthesia Note Normal [facility] Anesthesia Note Normal [facility] Nursing Noteon 06-07-2025 Nursing Note Normal [facility] Op Noteon 06-07-2025 Op Note 36on 06-04-2025 36 Normal [facility] 36on 06-01-2025 36 Normal [facility] 36on 05-31-2025 36 Patient's BGL Normal [facility] 36 Normal [facility] 36on 05-18-2025 36 Called [facility] and talk with nurse, she don't know and transfer to hand [employer] sewer, put me in hold for 25 min and never answer, if they call back please ask what they need . Thank you. 36 Not sure what is jayne ng asked. Did not order dietary restrictions, only recommendations. 36on 05-14-2025 36 Please advise! 36 Normal [facility] Basic Metabolic Profile (BMP )on 05-10-2025 BUN/CRE 25.7 RATIO High 10-20 [facility] Comment on above: Order Comment: 103-1 Performed By: #### L 100.0500, L500.4050 #### [facility] [address] [place], [address] Calcium [Mass/Vol] 8.8 mg/dL Normal 7.6-11.0 [facility] Comment on above: Order Comment: 103-1 Performed By: #### L 100.0500, L500.4050 #### [facility] [address] [place], [address] Chloride [Moles/Vol] 103 mmol/L Normal 98-108 [facility] Comment on above: Order Comment: 103-1 Performed By: #### L 100.0500, L500.4050 #### [facility] [address] [place], [address] CO2 [Moles/Vol] 26.2 mmol/L Normal 21.0-32.0 [facility] Comment on above: Order Comment: 103-1 Performed By: #### L 100.0500, L500.4050 #### [facility] [address] [place], [address] Creatinine [Mass/Vol] 0.64 mg/dL Low 0.70-1.20 [facility] Comment on above: Order Comment: 103-1 Performed By: #### L 100.0500, L500.4050 #### [facility] [address] [place], [address] GAP 10 Normal 5-15 [facility] Comment on above: Order Comment: 103-1 Performed By: #### L 100.0500, L500.4050 #### [facility] [address] [place], [address] GFR/1.73 sq M.predicted among non-blacks MDRD (S/P/Bld) [Vol rate/Area] 102 mL/min/{1.73_m2} Normal >60 [facility] Comment on above: Order Comment: 103-1 Result Comment: mL/m in/1.73m2 CKD-EPI Creatinine Equation (2020) Performed By: #### L 100.0500, L500.4050 #### [facility] [address] [place], [address] Glucose [Mass/Vol] 202 mg/dL High 70-99 [facility] Comment on above: Order Comment: 103-1 Performed By: #### L 100.0500, L500.4050 #### [facility] [address] [place], [address] Potassium [Moles/Vol] 4.5 mmol/L Normal 3.3-5.1 [facility] Comment on above: Order Comment: 103-1 Performed By: #### L 100.0500, L500.4050 #### [facility] [address] [place], [address] Sodium [Moles/Vol] 140 mmol/L Normal 133-145 [facility] Comment on above: Order Comment: 103-1 Performed By: #### L 100.0500, L500.4050 #### [facility] [address] [place], [address] Urea nitrogen [Mass/Vol] 16 mg/dL Normal 4-19 [facility] Comment on above: Order Comment: 103-1 Performed By: #### L 100.0500, L500.4050 #### [facility] [address] [place], [address] CBC-Complete Blood Cnt No Di ffon 05-10-2025 Erythrocyte distribution width (RBC) [Ratio] 14.9 % High 11.6-14.6 [facility] Comment on above: Order Comment: 103-1 Performed By: #### L 100.0500, L500.4050 #### [facility] [address] [place], [address] Hematocrit (Bld) [Volume fraction] 34.2 % Low 37-47 [facility] Comment on above: Order Comment: 103-1 Performed By: #### L 100.0500, L500.4050 #### [facility] [address] [place], [address] Hemoglobin (Bld) [Mass/Vol] 10.5 g/dL Low 12.0-15.0 [facility] Comment on above: Order Comment: 103-1 Performed By: #### L 100.0500, L500.4050 #### [facility] [address] [place], [address] MCH (RBC) [Entitic mass] 26.9 pg Low 27.0-32.0 [facility] Comment on above: Order Comment: 103-1 Performed By: #### L 100.0500, L500.4050 #### [facility] [address] [place], [address] MCHC (RBC) [Mass/Vol] 30.7 g/dL Low 32-36 [facility] Comment on above: Order Comment: 103-1 Performed By: #### L 100.0500, L500.4050 #### [facility] [address] [place], [address] MCV (RBC) [Entitic vol] 87.5 fL Normal 81-99 [facility] Comment on above: Order Comment: 103-1 Performed By: #### L 100.0500, L500.4050 #### [facility] [address] [place], [address] Platelet mean volume (Bld) [Entitic vol] 10.1 fL Normal 6.2-12.0 [facility] Comment on above: Order Comment: 103-1 Performed By: #### L 100.0500, L500.4050 #### [facility] [address] [place], [address] Platelets (Bld) [#/Vol] 318 10*3/uL Normal 150-450 [facility] Comment on above: Order Comment: 103-1 Performed By: #### L 100.0500, L500.4050 #### [facility] [address] [place], [address] RBC (Bld) [#/Vol] 3.91 10*6/uL Low 4.2-5.4 [facility] Comment on above: Order Comment: 103-1 Performed By: #### L 100.0500, L500.4050 #### [facility] [address] [place], [address] RDW SD 47.7 fl High 35.1-43.9 [facility] Comment on above: Order Comment: 103-1 Performed By: #### L 100.0500, L500.4050 #### [facility] [address] [place], [address] WBC (Bld) [#/Vol] 6.5 10*3/uL Normal 4.4-11.0 [facility] Comment on above: Order Comment: 103-1 Performed By: #### L 100.0500, L500.4050 #### [facility] [address] [place], [address] 36on 05-07-2025 36 Called patient's [facility] and informed. Normal [facility] 36 Continue current dos es Recommend future BGLs be sent in 4 week intervals. Or sooner if experiencing hypoglycemia or persistent elevations. Normal [facility] 36 Patient's BGL Normal [facility] 36on 05-01-2025 36 Called patient nurse at [facility] and informed. Normal [facility] 36 Normal [facility] 36on 04-30-2025 36 Patient's BGL Normal [facility] 36on 04-24-2025 36 Called patient nurse Juliane at [facility] and informed! Normal [facility] 36on 04-23-2025 36 Patient's BGL Normal [facility] 36on 04-20-2025 36 Called and relayed t he TE below to the pt's nurse. 36on 04-19-2025 36 Continue current dos es. Future blood glucose log's requested to have 2 weeks of data. 3604-17-2025 36 BGL downloaded in dc travis for your review. Thanks 36on 04-06-2025 36 Faxed BG recommendat ion to [facility] at fax #: [phone]. Normal [facility] AMB POC HEMOGLOBIN A1Con HbA1c (Bld) [Mass fraction] 6.8 % Abnormal - 5.7 % [facility] HbA1c (Bld) [Mass fraction]o n 04-06-2025 Interpretation and review of laboratory results Abnormal [facility] Progress Noteon 04-06-2025 Progress Note 36on 04-05-2025 36 Good Afternoon, I reviewed blood sugars for Maria Luisa, and they are mostly stable. There are no hypoglycemic events and blood sugars are not in the 300s on this log which is fantastic. No changes recommended at this time. Thanks! 36 Patient's BGL Normal [place] [address]on 03-27-2025 36 [place] [address]on 03-16-2025 36 Faxed recommendation s to [facility] fax #: [phone]. Normal [facility] 36on 03-15-2025 36 Reviewed BLG. Blood sugars are variable ranging between 117-359. No insulin dose changes. Blood sugars are improving. 3603-14-2025 36 We received recent B GL's regarding the pt, please advise. [place] [address]on 02-27-2025 36 Patient's BGL Normal [facility] Anion gap in Serum or Plasma Ordered By: Jared Guzman on 02-26-2025 Anion gap [Moles/Vol] 12 mmol/L 5-15 [facility] BUN/creatinine ratioOrdered By: Jared Guzman on 02-26-2025 Urea nitrogen/Creatinine [Mass ratio] 22.4 mg/mg High 10-20 [facility] Carbon dioxide, total [Moles /volume] in Central venous bloodOrdered By: Jared Guzman on 02-26-2025 CO2 [Moles/Vol] 25.7 mmol/L 21.0-32.0 [facility] Chloride assayOrdered By: Marcel Piper on 02-26-2025 Chloride [Moles/Vol] 101 mmol/L 98-108 [facility] GFR/1.73 sq M.predicted belinda g non-blacks MDRD (S/P/Bld) [Vol rate/Area]Ordered By: Jared Guzman on 02-26-2025 Estimated GFR (MDRD) Non-Af Amer 101 >60 [facility] Comment on above: mL/min/1.73m2 CKD-EP I Creatinine Equation (2020) Glomerular filtration rate ( GFR) estimation/1.73 sq m using serum, plasma, or whole bOrdered By: Jared Guzman on 02-26-2025 GFR/1.73 sq M.predicted among non-blacks MDRD (S/P/Bld) [Vol rate/Area] 101 mL/min/{1.73_m2} >60 [facility] Comment on above: mL/min/1.73m2 CKD-EP I Creatinine Equation (2020) Potassium (Unsp spec) [Mass/ Vol]Ordered By: Jared Guzman on 02-26-2025 Potassium [Moles/Vol] 4.0 mmol/L 3.3-5.1 [facility] Potassium measurement (mass/ volume)Ordered By: Jared Guzman on 02-26-2025 Potassium (Unsp spec) [Mass/Vol] 4.0 mmol/L 3.3-5.1 [facility] Renal Profileon 02-26-2025 Albumin [Mass/Vol] 3.7 g/dL Normal 3.5-5.0 [facility] Comment on above: Order Comment: UNKNO WN METHOD OF COLLECTION CLEAN CATCH Performed By: #### M 100.2200, L400.0001 #### [facility] [address] [place], [address] BUN/CRE 22.4 RATIO High 10-20 [facility] Comment on above: Order Comment: UNKNO WN METHOD OF COLLECTION CLEAN CATCH Performed By: #### M 100.2200, L400.0001 #### [facility] [address] [place], [address] Calcium [Mass/Vol] 9.1 mg/dL Normal 7.6-11.0 [facility] Comment on above: Order Comment: UNKNO WN METHOD OF COLLECTION CLEAN CATCH Performed By: #### M 100.2200, L400.0001 #### [facility] [address] [place], [address] Chloride [Moles/Vol] 101 mmol/L Normal 98-108 [facility] Comment on above: Order Comment: UNKNO WN METHOD OF COLLECTION CLEAN CATCH Performed By: #### M 100.2200, L400.0001 #### [facility] [address] [place], [address] CO2 [Moles/Vol] 25.7 mmol/L Normal 21.0-32.0 [facility] Comment on above: Order Comment: UNKNO WN METHOD OF COLLECTION CLEAN CATCH Performed By: #### M 100.2200, L400.0001 #### [facility] [address] [place], [address] Creatinine [Mass/Vol] 0.68 mg/dL Low 0.70-1.20 [facility] Comment on above: Order Comment: UNKNO WN METHOD OF COLLECTION CLEAN CATCH Performed By: #### M 100.2200, L400.0001 #### [facility] [address] [place], [address] GAP 12 Normal 5-15 [facility] Comment on above: Order Comment: UNKNO WN METHOD OF COLLECTION CLEAN CATCH Performed By: #### M 100.2200, L400.0001 #### [facility] [address] [place], [address] GFR/1.73 sq M.predicted among non-blacks MDRD (S/P/Bld) [Vol rate/Area] 101 mL/min/{1.73_m2} Normal >60 [facility] Comment on above: Order Comment: UNKNO WN METHOD OF COLLECTION CLEAN CATCH Result Comment: mL/m in/1.73m2 CKD-EPI Creatinine Equation (2020) Performed By: #### M 100.2200, L400.0001 #### [facility] [address] [place], [address] Glucose [Mass/Vol] 211 mg/dL High 70-99 [facility] Comment on above: Order Comment: UNKNO WN METHOD OF COLLECTION CLEAN CATCH Performed By: #### M 100.2200, L400.0001 #### [facility] [address] [place], [address] Phosphate [Mass/Vol] 4.2 mg/dL Normal 2.7-4.5 [facility] Comment on above: Order Comment: UNKNO WN METHOD OF COLLECTION CLEAN CATCH Performed By: #### M 100.2200, L400.0001 #### [facility] [address] [place], [address] Potassium [Moles/Vol] 4.0 mmol/L Normal 3.3-5.1 [facility] Comment on above: Order Comment: UNKNO WN METHOD OF COLLECTION CLEAN CATCH Performed By: #### M 100.2200, L400.0001 #### [facility] [address] [place], [address] Sodium [Moles/Vol] 139 mmol/L Normal 133-145 [facility] Comment on above: Order Comment: UNKNO WN METHOD OF COLLECTION CLEAN CATCH Performed By: #### M 100.2200, L400.0001 #### [facility] [address] [place], [address] Urea nitrogen [Mass/Vol] 15 mg/dL Normal 4- [facility] Comment on above: Order Comment: UNKNO WN METHOD OF COLLECTION CLEAN CATCH Performed By: #### M 100.1840, L400.0001 #### [facility] [address] [place], [address] Serum creatinine measurement (mass/volume)Ordered By: Jared Guzman on 02-26-2025 Creatinine [Mass/Vol] 0.68 mg/dL Low 0.70-1.20 [facility] Serum glucose measurement (m ass/volume)Ordered By: Jared Guzman on 02-26-2025 Glucose [Mass/Vol] 211 mg/dL High 70-99 [facility] Serum or plasma albumin mauricio urement (mass/volume)Ordered By: Jared Guzman on 02-26-2025 Albumin [Mass/Vol] 3.7 g/dL 3.5-5.0 [facility] Serum or plasma calcium mauricio urement (mass/volume)Ordered By: Jared Guzman on 02-26-2025 Calcium [Mass/Vol] 9.1 mg/dL 7.6-11.0 [facility] Serum or plasma urea nitroge n measurement (mass/volume)Ordered By: Jared Guzman on 02-26-2025 Urea nitrogen [Mass/Vol] 15 mg/dL - [facility] Serum phosphorus measurement Ordered By: Jared Guzman on 02-26-2025 Phosphorus Level 4.2 mg/dL 2.7-4.5 [facility] Sodium levelOrdered By: Main Guzman on 02-26-2025 Sodium [Moles/Vol] 139 mmol/L 133-145 [facility] 02-16-2025 36 Faxed letter to [facility] at fax #: [phone]. 02-15-2025 36 36 Patient's BGL 02-13-2025 36 Called [facility] to offer cancel the [facility] visit per provider. Visit canceled. 02-12-2025 36 Nurse from [facility] called to schedule Annual follow up. Follow up scheduled for 03/02/2025. Patient is non weight bearing and uses a [facility]ee. Further question is whether they bring with [facility] or ambulance cot. Please advise. 36on 02-09-2025 36 Faxed new orders to [facility] at fax #: [phone]. Normal [facility] No Panel InformationOrdered By: Corin Man on 02-09-2025 Left arm BP 146 mmHg [employer] Phone: Left TBI 0.95 [employer] Phone: Left toe pressure 138 mmHg [employer] Phone: Right arm BP 145 mmHg [employer] Phone: No Panel Informationon 02-09 Left side [...] cuff method used due to body habitus. [employer] Details A spectral Doppler analysis ultrasound was performed. Pulsed volume recording (PVR) and photo plethysmography was performed. The exam was performed with the patient in the supine position. Overall the study quality was adequate. Study was technically difficult due to: body habitus. CV CPACS 36on 02-08-2025 36 Normal [facility] 36 [facility] Rad[facility] called stating that CT chest wo IV contrast order will before its completion. Requested new order to be placed. Please advise. Normal [facility] 36on 02-07-2025 36 Patient's BGL Normal [facility] Anion gap in Serum or Plasma Ordered By: Jared Guzman on 02-07-2025 Anion gap [Moles/Vol] 10 mmol/L 5-15 [facility] BUN/creatinine ratioOrdered By: Jared Guzman on 02-07-2025 Urea nitrogen/Creatinine [Mass ratio] 21.4 mg/mg High 10-20 [facility] Basic Metabolic Profile (BMP )on 02-07-2025 BUN/CRE 21.4 RATIO High 10-20 [facility] Comment on above: Order Comment: 103.1 Performed By: #### L 100.0500, L500.2500 #### [facility] [address] [place], [address] Calcium [Mass/Vol] 9.0 mg/dL Normal 7.6-11.0 [facility] Comment on above: Order Comment: 103.1 Performed By: #### L 100.0500, L500.2500 #### [facility] [address] [place], [address] Chloride [Moles/Vol] 102 mmol/L Normal 98-108 [facility] Comment on above: Order Comment: 103.1 Performed By: #### L 100.0500, L500.2500 #### [facility] [address] [place], [address] CO2 [Moles/Vol] 27.2 mmol/L Normal 21.0-32.0 [facility] Comment on above: Order Comment: 103.1 Performed By: #### L 100.0500, L500.2500 #### [facility] [address] [place], [address] Creatinine [Mass/Vol] 0.56 mg/dL Low 0.70-1.20 [facility] Comment on above: Order Comment: 103.1 Performed By: #### L 100.0500, L500.2500 #### [facility] [address] [place], [address] GAP 10 Normal 5-15 [facility] Comment on above: Order Comment: 103.1 Performed By: #### L 100.0500, L500.2500 #### [facility] [address] [place], [address] GFR/1.73 sq M.predicted among non-blacks MDRD (S/P/Bld) [Vol rate/Area] 106 mL/min/{1.73_m2} Normal >60 [facility] Comment on above: Order Comment: 103.1 Result Comment: mL/m in/1.73m2 CKD-EPI Creatinine Equation (2020) Performed By: #### L 100.0500, L500.2500 #### [facility] [address] [place], [address] Glucose [Mass/Vol] 113 mg/dL High 70-99 [facility] Comment on above: Order Comment: 103.1 Performed By: #### L 100.0500, L500.2500 #### [facility] [address] [place], [address] Potassium [Moles/Vol] 4.2 mmol/L Normal 3.3-5.1 [facility] Comment on above: Order Comment: 103.1 Performed By: #### L 100.0500, L500.2500 #### [facility] [address] [place], [address] Sodium [Moles/Vol] 140 mmol/L Normal 133-145 [facility] Comment on above: Order Comment: 103.1 Performed By: #### L 100.0500, L500.2500 #### [facility] [address] [place], [address] Urea nitrogen [Mass/Vol] 12 mg/dL Normal 4-19 [facility] Comment on above: Order Comment: 103.1 Performed By: #### L 100.0500, L500.2500 #### [facility] [address] [place], [address] CBC-Complete Blood Cnt No Di ffon 02-07-2025 Erythrocyte distribution width (RBC) [Ratio] 14.5 % Normal 11.6-14.6 [facility] Comment on above: Order Comment: 103.1 Performed By: #### L 100.0500, L500.2500 #### [facility] [address] [place], [address] Hematocrit (Bld) [Volume fraction] 34.7 % Low 37-47 [facility] Comment on above: Order Comment: 103.1 Performed By: #### L 100.0500, L500.2500 #### [facility] [address] [place], [address] Hemoglobin (Bld) [Mass/Vol] 11.1 g/dL Low 12.0-15.0 [facility] Comment on above: Order Comment: 103.1 Performed By: #### L 100.0500, L500.2500 #### [facility] [address] [place], [address] MCH (RBC) [Entitic mass] 27.1 pg Normal 27.0-32.0 [facility] Comment on above: Order Comment: 103.1 Performed By: #### L 100.0500, L500.2500 #### [facility] [address] [place], [address] MCHC (RBC) [Mass/Vol] 32.0 g/dL Normal 32-36 [facility] Comment on above: Order Comment: 103.1 Performed By: #### L 100.0500, L500.2500 #### [facility] [address] [place], [address] MCV (RBC) [Entitic vol] 84.6 fL Normal 81-99 [facility] Comment on above: Order Comment: 103.1 Performed By: #### L 100.0500, L500.2500 #### [facility] [address] [place], [address] Platelet mean volume (Bld) [Entitic vol] 10.3 fL Normal 6.2-12.0 [facility] Comment on above: Order Comment: 103.1 Performed By: #### L 100.0500, L500.2500 #### [facility] [address] [place], [address] Platelets (Bld) [#/Vol] 353 10*3/uL Normal 150-450 [facility] Comment on above: Order Comment: 103.1 Performed By: #### L 100.0500, L500.2500 #### [facility] [address] [place], [address] RBC (Bld) [#/Vol] 4.10 10*6/uL Low 4.2-5.4 [facility] Comment on above: Order Comment: 103.1 Performed By: #### L 100.0500, L500.2500 #### [facility] [address] [place], [address] RDW SD 44.6 fl High 35.1-43.9 [facility] Comment on above: Order Comment: 103.1 Performed By: #### L 100.0500, L500.2500 #### [facility] [address] [place], [address] WBC (Bld) [#/Vol] 8.1 10*3/uL Normal 4.4-11.0 [facility] Comment on above: Order Comment: 103.1 Performed By: #### L 100.0500, L500.2500 #### [facility] [address] [place], [address] Carbon dioxide, total [Moles /volume] in Central venous bloodOrdered By: Jared Guzman on 02-07-2025 CO2 [Moles/Vol] 27.2 mmol/L 21.0-32.0 [facility] Chloride assayOrdered By: Marcel Piper on 02-07-2025 Chloride [Moles/Vol] 102 mmol/L 98-108 [facility] Erythrocyte distribution wid th (RBC) [Ratio]Ordered By: Jared Guzman on 02-07-2025 Erythrocyte distribution width (RBC) [Entitic vol] 44.6 fL High 35.1-43.9 [facility] Erythrocyte distribution wid th ratioOrdered By: Jared Guzman on 02-07-2025 Erythrocyte distribution width (RBC) [Ratio] 14.5 % 11.6-14.6 [facility] Erythrocyte distribution wid th standard deviationOrdered By: Jared Guzman on 02-07-2025 Erythrocyte distribution width (RBC) [Ratio] 44.6 fl High 35.1-43.9 [facility] GFR/1.73 sq M.predicted belinda g non-blacks MDRD (S/P/Bld) [Vol rate/Area]Ordered By: Jared Guzman on 02-07-2025 Estimated GFR (MDRD) Non-Af Amer 106 >60 [facility] Comment on above: mL/min/1.73m2 CKD-EP I Creatinine Equation (2020) Glomerular filtration rate ( GFR) estimation/1.73 sq m using serum, plasma, or whole bOrdered By: Jared Guzman on 02-07-2025 GFR/1.73 sq M.predicted among non-blacks MDRD (S/P/Bld) [Vol rate/Area] 106 mL/min/{1.73_m2} >60 [facility] Comment on above: mL/min/1.73m2 CKD-EP I Creatinine Equation (2020) Hematocrit Auto (Bld) [Volum e fraction]Ordered By: Jared Guzman on 02-07-2025 Hematocrit (Bld) [Volume fraction] 34.7 % Low 37-47 [facility] Hemoglobin measurementOrdere d By: Jared Guzman on 02-07-2025 Hemoglobin (Bld) [Mass/Vol] 11.1 g/dL Low 12.0-15.0 [facility] MCV (mean corpuscular volume ) determinationOrdered By: Jared Guzman on 02-07-2025 MCV (RBC) [Entitic vol] 84.6 fL 81-99 [facility] Mean corpuscular hemoglobin (MCH) determinationOrdered By: Jared Guzman on 02-07-2025 MCH (RBC) [Entitic mass] 27.1 pg 27.0-32.0 [facility] Mean corpuscular hemoglobin concentration (MCHC) determinationOrdered By: Jared Guzman on 02-07-2025 MCHC (RBC) [Mass/Vol] 32.0 g/dL 32-36 [facility] Mean platelet volume determi nationOrdered By: Jared Guzman on 02-07-2025 Platelet mean volume (Bld) [Entitic vol] 10.3 fL 6.2-12.0 [facility] Platelet countOrdered By: Marcel Piper on 02-07-2025 Platelets (Bld) [#/Vol] 353 10*3/uL 150-450 [facility] Potassium (Unsp spec) [Mass/ Vol]Ordered By: Jared Guzman on 02-07-2025 Potassium [Moles/Vol] 4.2 mmol/L 3.3-5.1 [facility] Potassium measurement (mass/ volume)Ordered By: Jared Guzman on 02-07-2025 Potassium (Unsp spec) [Mass/Vol] 4.2 mmol/L 3.3-5.1 [facility] RBC Auto (Bld) [#/Vol]Ordere d By: Jared Guzman on 02-07-2025 RBC (Bld) [#/Vol] 4.10 10*6/uL Low 4.2-5.4 [facility] Serum creatinine measurement (mass/volume)Ordered By: Jared Guzman on 02-07-2025 Creatinine [Mass/Vol] 0.56 mg/dL Low 0.70-1.20 [facility] Serum glucose measurement (m ass/volume)Ordered By: Jared Guzman on 02-07-2025 Glucose [Mass/Vol] 113 mg/dL High 70-99 [facility] Serum or plasma calcium mauricio urement (mass/volume)Ordered By: Jared Guzman on 02-07-2025 Calcium [Mass/Vol] 9.0 mg/dL 7.6-11.0 [facility] Serum or plasma urea nitroge n measurement (mass/volume)Ordered By: Jared Guzman on 02-07-2025 Urea nitrogen [Mass/Vol] 12 mg/dL 4-19 [facility] Sodium levelOrdered By: Main Guzman on 02-07-2025 Sodium [Moles/Vol] 140 mmol/L 133-145 [facility] White blood cell (WBC) count Ordered By: Jared Guzman on 02-07-2025 WBC (Bld) [#/Vol] 8.1 10*3/uL 4.4-11.0 Delmar doshi [facility] Progress Noteon 02-01-2025 Progress Note 3601-31-2025 36 Called SNF s/w Suma released message as written, she stated that she understood. 01-30-2025 36 3601-29-2025 36 Patient's BGL 3601-19-2025 36 Faxed orders to [facility] at fax #: [phone]. 01-17-2025 36 [place] 9021301-15-2025 36 Patients BGL 01-11-2025 36 Called SNF s/w Sanjana released message as written, she stated that she understood and had no questions. 01-10-2025 36 3601-08-2025 36 Patient's BGL 01-02-2025 36 Labs Noted 01-01-2025 36 Requested BGLs and a recent CMP was received , please advise. 01-01-2025 37 Please send Ophthalmology Note once completed this year. Please note if any insulin doses are held on blood log. Progress Noteon 01-01-2025 Progress Note 3612-29-2024 36 Called SNF s/w Ninfa released message as written, no insulin has been held. 12-28-2024 36 Called the nursing facility to schedule an appointment and spoke with Nabil, who stated that the pt nurse is not in today and that she will have her call our office when she is in. TY 36 ----- Message from JEREMY Bloom CNP sent at 12/21/2024 4:00 PM EST ----- Please schedule patient for EGD and colonoscopy-[facility]. Please call nursing facility to schedule appointment. Thank you. Normal [facility] 36on 12-27-2024 36 Normal [facility] Albumin to globulin ratioOrd ered By: Jared Guzman on 12-27-2024 Albumin/Globulin [Mass ratio] 0.8 {ratio} Low 0.9-2.4 [facility] Bilirubin, totalOrdered By: Jared Guzman on 12-27-2024 Bilirubin [Mass/Vol] 0.40 mg/dL 0.20-1.00 [facility] Comment on above: For patients on eltr ombopag therapy, use of Dimension Ovid TBIL is not recommended. Blood urea nitrogen (BUN)/cr eatinine ratioOrdered By: Jared Guzman on 12-27-2024 Urea nitrogen/Creatinine [Mass ratio] 14.4 mg/mg 10-20 [facility] CBC-Complete Blood Cnt No Di ffon 12-27-2024 Erythrocyte distribution width (RBC) [Ratio] 14.6 % Normal 11.6-14.6 [facility] Comment on above: Order Comment: 103-1 Performed By: #### L 100.0500, L500.4050 #### [facility] [address] [place], [address] Hematocrit (Bld) [Volume fraction] 34.5 % Low 37-47 [facility] Comment on above: Order Comment: 103-1 Performed By: #### L 100.0500, L500.4050 #### [facility] [address] [place], [address] Hemoglobin (Bld) [Mass/Vol] 10.9 g/dL Low 12.0-15.0 [facility] Comment on above: Order Comment: 103-1 Performed By: #### L 100.0500, L500.4050 #### [facility] [address] [place], [address] MCH (RBC) [Entitic mass] 27.2 pg Normal 27.0-32.0 [facility] Comment on above: Order Comment: 103-1 Performed By: #### L 100.0500, L500.4050 #### [facility] [address] [place], [address] MCHC (RBC) [Mass/Vol] 31.6 g/dL Low 32-36 [facility] Comment on above: Order Comment: 103-1 Performed By: #### L 100.0500, L500.4050 #### [facility] [address] [place], [address] MCV (RBC) [Entitic vol] 86.0 fL Normal 81-99 [facility] Comment on above: Order Comment: 103-1 Performed By: #### L 100.0500, L500.4050 #### [facility] [address] [place], [address] Platelet mean volume (Bld) [Entitic vol] 10.3 fL Normal 6.2-12.0 [facility] Comment on above: Order Comment: 103-1 Performed By: #### L 100.0500, L500.4050 #### [facility] [address] [place], [address] Platelets (Bld) [#/Vol] 350 10*3/uL Normal 150-450 [facility] Comment on above: Order Comment: 103-1 Performed By: #### L 100.0500, L500.4050 #### [facility] [address] [place], [address] RBC (Bld) [#/Vol] 4.01 10*6/uL Low 4.2-5.4 [facility] Comment on above: Order Comment: 103-1 Performed By: #### L 100.0500, L500.4050 #### [facility] [address] [place], [address] RDW SD 45.5 fl High 35.1-43.9 [facility] Comment on above: Order Comment: 103-1 Performed By: #### L 100.0500, L500.4050 #### [facility] [address] [place], [address] WBC (Bld) [#/Vol] 6.9 10*3/uL Normal 4.4-11.0 [facility] Comment on above: Order Comment: 103-1 Performed By: #### L 100.0500, L500.4050 #### [facility] [address] [place], [address] Carbon dioxide measurementOr dered By: Jared Guzman on 12-27-2024 CO2 [Moles/Vol] 29.0 mmol/L 21.0-32.0 [facility] Chloride measurementOrdered By: Jared Guzman on 12-27-2024 Chloride [Moles/Vol] 104 mmol/L 98-107 [facility] Comprehensive Metabolic Prof ilon 12-27-2024 Albumin [Mass/Vol] 2.8 g/dL Low 3.2-5.0 [facility] Comment on above: Order Comment: 103-1 Performed By: #### L 100.0500, L500.4050 #### [facility] [address] [place], [address] Albumin/Globulin [Mass ratio] 0.8 {ratio} Low 0.9-2.4 [facility] Comment on above: Order Comment: 103-1 Performed By: #### L 100.0500, L500.4050 #### [facility] [address] [place], [address] ALK P 152 U/L High 45-117 [facility] Comment on above: Order Comment: 103-1 Performed By: #### L 100.0500, L500.4050 #### [facility] [address] [place], [address] ALT [Catalytic activity/Vol] 32 U/L Normal 13-56 [facility] Comment on above: Order Comment: 103-1 Performed By: #### L 100.0500, L500.4050 #### [facility] [address] [place], [address] AST [Catalytic activity/Vol] 19 U/L Normal 15-37 [facility] Comment on above: Order Comment: 103-1 Performed By: #### L 100.0500, L500.4050 #### [facility] [address] [place], [address] Bilirubin [Mass/Vol] 0.40 mg/dL Normal 0.20-1.00 [facility] Comment on above: Order Comment: 103-1 Result Comment: For patients on eltrombopag therapy, use of Dimension Ovid TBIL is not recommended. Performed By: #### L 100.0500, L500.4050 #### [facility] [address] [place], [address] BUN/CRE 14.4 RATIO Normal 10-20 [facility] Comment on above: Order Comment: 103-1 Performed By: #### L 100.0500, L500.4050 #### [facility] [address] [place], [address] CA,Total 9.4 mg/dL Normal 8.5-10.1 [facility] Comment on above: Order Comment: 103-1 Performed By: #### L 100.0500, L500.4050 #### [facility] [address] [place], [address] Chloride [Moles/Vol] 104 mmol/L Normal 98-107 [facility] Comment on above: Order Comment: 103-1 Performed By: #### L 100.0500, L500.4050 #### [facility] [address] [place], [address] CO2 [Moles/Vol] 29.0 mmol/L Normal 21.0-32.0 [facility] Comment on above: Order Comment: 103- Performed By: #### L 100.0500, L500.4050 #### [facility] [address] [place], [address] Creatinine [Mass/Vol] 0.56 mg/dL Normal 0.55-1.02 [facility] Comment on above: Order Comment: 103- Result Comment: The validity of the calculated GFR GFRAA in patients over 70 years has not been determined. Clinical correlation is essential. Performed By: #### L 100.0500, L500.4050 #### [facility] [address] [place], [address] EST GFR - AA 144 mL/min Normal >60 [facility] Comment on above: Order Comment: 103- Result Comment: Afri can [place] GFR Calc Performed By: #### L 100.0500, L500.4050 #### [facility] [address] [place], [address] GAP 6 Normal 5-15 [facility] Comment on above: Order Comment: - Performed By: #### L 100.0500, L500.4050 #### [facility] [address] [place], [address] GFR/1.73 sq M.predicted among non-blacks MDRD (S/P/Bld) [Vol rate/Area] 119 mL/min/{1.73_m2} Normal >60 [facility] Comment on above: Order Comment: 103- Result Comment: Non- GFR Calc Performed By: #### L 100.0500, L500.4050 #### [facility] [address] [place], [address] Globulin (S) [Mass/Vol] 3.4 g/dL Normal 2.2-4.2 [facility] Comment on above: Order Comment: 103-1 Performed By: #### L 100.0500, L500.4050 #### [facility] [address] [place], [address] Glucose [Mass/Vol] 149 mg/dL High 74-106 [facility] Comment on above: Order Comment: 103-1 Result Comment: Fast ing Glucose result greater than or equal to 126 mg/dL suggests DIABETES MELLITUS per A.D.A. criteria. Performed By: #### L 100.0500, L500.4050 #### [facility] [address] [place], [address] Potassium [Moles/Vol] 3.9 mmol/L Normal 3.5-5.1 [facility] Comment on above: Order Comment: 103-1 Performed By: #### L 100.0500, L500.4050 #### [facility] [address] [place], [address] Sodium [Moles/Vol] 139 mmol/L Normal 136-145 [facility] Comment on above: Order Comment: 103-1 Performed By: #### L 100.0500, L500.4050 #### [facility] [address] [place], [address] T PROT 6.2 g/dL Low 6.4-8.2 [facility] Comment on above: Order Comment: 103-1 Performed By: #### L 100.0500, L500.4050 #### [facility] [address] [place], [address] Urea nitrogen [Mass/Vol] 8 mg/dL Normal 7-18 [facility] Comment on above: Order Comment: 103-1 Performed By: #### L 100.0500, L500.4050 #### [facility] [address] [place], [address] Erythrocyte distribution wid th ratioOrdered By: Jared Guzman on 12-27-2024 Erythrocyte distribution width (RBC) [Ratio] 14.6 % 11.6-14.6 [facility] Erythrocyte distribution wid th standard deviationOrdered By: Jared Guzman on 12-27-2024 Erythrocyte distribution width (RBC) [Entitic vol] 45.5 fL High 35.1-43.9 [facility] Erythrocyte distribution width (RBC) [Ratio] 45.5 fl High 35.1-43.9 [facility] Estimated glomerular filtrat ion rate (GFR) AmericanOrdered By: Jared Guzman on 12-27-2024 Estimated GFR (MDRD) Amer 144 mL/min >60 [facility] Comment on above: GFR Calc Glomerular filtration rate ( GFR) estimationOrdered By: Jared Guzman on 12-27-2024 Estimated GFR (MDRD) Non-Af Amer 119 mL/min >60 [facility] Comment on above: Non- GFR Calc GFR/1.73 sq M.predicted among non-blacks MDRD (S/P/Bld) [Vol rate/Area] 119 mL/min/{1.73_m2} >60 [facility] Comment on above: Non- GFR Calc Glucose measurementOrdered B y: Jared Guzman on 12-27-2024 Glucose [Mass/Vol] 149 mg/dL High 74-106 [facility] Comment on above: Fasting Glucose resu lt greater than or equal to 126 mg/dL suggests DIABETES MELLITUS per A.D.A. criteria. Hematocrit Auto (Bld) [Volum e fraction]Ordered By: Jared Guzman on 12-27-2024 Hematocrit (Bld) [Volume fraction] 34.5 % Low 37-47 [facility] Hemoglobin measurementOrdere d By: Jared Guzman on 12-27-2024 Hemoglobin (Bld) [Mass/Vol] 10.9 g/dL Low 12.0-15.0 [facility] High density lipoprotein (HD L) measurementOrdered By: Jared Guzman on 12-27-2024 Cholesterol in HDL [Mass/Vol] 43 mg/dL >40 [facility] Comment on above: The drugs N-Acetylcy steine and Metamizole may falsely depress this assay. Reference Range HDL <40 mg/dL Low HDL Cholesterol HDL >or= 60 mg/dL High HDL Cholesterol Laboratory - Chemistry and C hemistry - challengeOrdered By: Jared Guzman on 12-27-2024 AST [Catalytic activity/Vol] 19 U/L 15-37 [facility] Lipid Profileon 12-27-2024 Cholesterol [Mass/Vol] 178 mg/dL Normal 200 [facility] Comment on above: Order Comment: 103- Result Comment: <200 mg/dL Desirable 200-240 mg/dL Borderline >240 mg/dL High Risk Performed By: #### L 100.0500, L500.4050 #### [facility] [address] [place], [address] Cholesterol in HDL [Mass/Vol] 43 mg/dL Normal [facility] Comment on above: Order Comment: 103 Result Comment: The drugs N-Acetylcysteine and Metamizole may falsely depress this assay. Reference Range HDL <40 mg/dL Low HDL Cholesterol HDL >or= 60 mg/dL High HDL Cholesterol Performed By: #### L 100.0500, L500.4050 #### [facility] [address] [place], [address] Cholesterol in LDL [Mass/Vol] 99 mg/dL Normal 0-130 [facility] Comment on above: Order Comment: Performed By: #### L 100.0500, L500.4050 #### [facility] [address] [place], [address] Cholesterol in VLDL [Mass/Vol] 36 mg/dL Normal 5-40 [facility] Comment on above: Order Comment: Performed By: #### L 100.0500, L500.4050 #### [facility] [address] [place], [address] Triglyceride [Mass/Vol] 181 mg/dL Normal [facility] Comment on above: Order Comment: 103 Result Comment: The drugs N-Acetylcysteine and Metamizole may falsely depress this assay. Serum Triglycerides Reference Interval Normal <150 mg/dL Borderline high 150 - 199 mg/dL High 200 - 499 mg/dL Very High > or = 500 mg/dL Performed By: #### L 100.0500, L500.4050 #### [facility] [place], [address] Low density lipoprotein (LDL ) cholesterol measurementOrdered By: Jared Guzman on 12-27-2024 Cholesterol in LDL [Mass/Vol] 99 mg/dL 0-130 [facility] MCV (mean corpuscular volume ) determinationOrdered By: Jared Guzman on 12-27-2024 MCV (RBC) [Entitic vol] 86.0 fL 81-99 [facility] Mean corpuscular hemoglobin (MCH) determinationOrdered By: Jared Guzman on 12-27-2024 MCH (RBC) [Entitic mass] 27.2 pg 27.0-32.0 [facility] Mean corpuscular hemoglobin concentration (MCHC) determinationOrdered By: Jared Guzman on 12-27-2024 MCHC (RBC) [Mass/Vol] 31.6 g/dL Low 32-36 [facility] Mean platelet volume determi nationOrdered By: Jared Guzman on 12-27-2024 Platelet mean volume (Bld) [Entitic vol] 10.3 fL 6.2-12.0 [facility] Platelet countOrdered By: Marcel Piper on 12-27-2024 Platelets (Bld) [#/Vol] 350 10*3/uL 150-450 [facility] Potassium measurementOrdered By: Jared Guzman on 12-27-2024 Potassium [Moles/Vol] 3.9 mmol/L 3.5-5.1 [facility] RBC Auto (Bld) [#/Vol]Ordere d By: Jared Guzman on 12-27-2024 RBC (Bld) [#/Vol] 4.01 10*6/uL Low 4.2-5.4 [facility] Serum anion gap measurementO rdered By: Jared Guzman on 12-27-2024 Anion gap [Moles/Vol] 6 mmol/L 5-15 [facility] Serum globulin measurementOr dered By: Jared Guzman on 12-27-2024 Globulin (S) [Mass/Vol] 3.4 g/dL 2.2-4.2 [facility] Serum or plasma alanine jones otransferase (ALT) measurementOrdered By: Jared Guzman on 12-27-2024 ALT [Catalytic activity/Vol] 32 U/L 13-56 [facility] Serum or plasma albumin mauricio urement (mass/volume)Ordered By: Jared Guzman on 12-27-2024 Albumin [Mass/Vol] 2.8 g/dL Low 3.2-5.0 [facility] Serum or plasma alkaline abbey sphatase measurementOrdered By: Jared Guzman on 12-27-2024 ALP [Catalytic activity/Vol] 152 U/L High 45-117 [facility] Serum or plasma calcium mauricio urement (mass/volume)Ordered By: Jared Guzman on 12-27-2024 Calcium [Mass/Vol] 9.4 mg/dL 8.5-10.1 [facility] Serum or plasma cholesterol measurement (mass/volume)Ordered By: Jared Guzman on 12-27-2024 Cholesterol [Mass/Vol] 178 mg/dL <200 [facility] Comment on above: <200 mg/dL Desirable 200-240 mg/dL Borderline >240 mg/dL High Risk Serum or plasma creatinine m easurement (mass/volume)Ordered By: Jared Guzman on 12-27-2024 Creatinine [Mass/Vol] 0.56 mg/dL 0.55-1.02 [facility] Comment on above: The validity of the calculated GFR & GFRAA in patients over 70 years has not been determined. Clinical correlation is essential. Serum or plasma urea nitroge n measurement (mass/volume)Ordered By: Jared Guzman on 12-27-2024 Urea nitrogen [Mass/Vol] 8 mg/dL 7-18 [facility] Sodium levelOrdered By: Main Guzman on 12-27-2024 Sodium [Moles/Vol] 139 mmol/L 136-145 [facility] Total proteinOrdered By: Mike Guzman on 12-27-2024 Protein [Mass/Vol] 6.2 g/dL Low 6.4-8.2 [facility] Triglycerides measurementOrd ered By: Jared Guzman on 12-27-2024 Triglyceride [Mass/Vol] 181 mg/dL <199 [facility] Comment on above: The drugs N-Acetylcy steine and Metamizole may falsely depress this assay.Serum Triglycerides Reference Interval Normal <150 mg/dL Borderline high 150 - 199 mg/dL High 200 - 499 mg/dL Very High > or = 500 mg/dL Very low density lipoprotein (VLDL) cholesterol measurementOrdered By: Jared Guzman on 12-27-2024 Very low density lipoprotein (VLDL) cholesterol measurement 36 mg/dL -40 [facility] VLDL Cholesterol 36 mg/dL 5-40 [facility] White blood cell (WBC) count Ordered By: Jared Guzman on 12-27-2024 WBC (Bld) [#/Vol] 6.9 10*3/uL 4.4-11.0 [facility] 36on 12-22-2024 36 Please advise. 36 36 36 Faxed orders from ed dean to [facility] 36on 12-21-2024 36 Normal [facility] 37on 12-21-2024 37 Progress Noteon 12-21-2024 Progress Note Normal [facility] Progress Note Patient was verified by name and . 36on 12-20-2024 36 Patients BGL 36on 12-13-2024 36 Called SNF s/w Nabil released message as written, she stated that she understood and had no questions. 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 3612-05-2024 36 [facility] at fax #: [phone]. 36 Normal [facility] 36 Patient's BGL Normal [facility] Albumin to globulin ratioOrd ered By: Jared Guzman on 12-05-2024 Albumin/Globulin [Mass ratio] 0.9 {ratio} 0.9-2.4 [facility] Bilirubin, totalOrdered By: Jared Gzuman on 12-05-2024 Bilirubin [Mass/Vol] 0.50 mg/dL 0.20-1.00 [facility] Comment on above: For patients on eltr ombopag therapy, use of Dimension Ovid TBIL is not recommended. Blood urea nitrogen (BUN)/cr eatinine ratioOrdered By: Jared Guzman on 12-05-2024 Urea nitrogen/Creatinine [Mass ratio] 20.1 mg/mg High 10-20 [facility] CBC-Complete Blood Cnt No Di ffon 12-05-2024 Erythrocyte distribution width (RBC) [Ratio] 14.7 % High 11.6-14.6 [facility] Comment on above: Order Comment: 103.1 Performed By: #### L 100.0500, L500.4050 #### [facility] [address] [place], [address] Hematocrit (Bld) [Volume fraction] 35.9 % Low 37-47 [facility] Comment on above: Order Comment: 103.1 Performed By: #### L 100.0500, L500.4050 #### [facility] [address] [place], [address] Hemoglobin (Bld) [Mass/Vol] 11.1 g/dL Low 12.0-15.0 [facility] Comment on above: Order Comment: 103.1 Performed By: #### L 100.0500, L500.4050 #### [facility] [address] [place], [address] MCH (RBC) [Entitic mass] 26.5 pg Low 27.0-32.0 [facility] Comment on above: Order Comment: 103.1 Performed By: #### L 100.0500, L500.4050 #### [facility] [address] [place], [address] MCHC (RBC) [Mass/Vol] 30.9 g/dL Low 32-36 [facility] Comment on above: Order Comment: 103.1 Performed By: #### L 100.0500, L500.4050 #### [facility] [address] [place], [address] MCV (RBC) [Entitic vol] 85.7 fL Normal 81-99 [facility] Comment on above: Order Comment: 103.1 Performed By: #### L 100.0500, L500.4050 #### [facility] [address] [place], [address] Platelet mean volume (Bld) [Entitic vol] 10.2 fL Normal 6.2-12.0 [facility] Comment on above: Order Comment: 103.1 Performed By: #### L 100.0500, L500.4050 #### [facility] [address] [place], [address] Platelets (Bld) [#/Vol] 355 10*3/uL Normal 150-450 [facility] Comment on above: Order Comment: 103.1 Performed By: #### L 100.0500, L500.4050 #### [facility] [address] [place], [address] RBC (Bld) [#/Vol] 4.19 10*6/uL Low 4.2-5.4 [facility] Comment on above: Order Comment: 103.1 Performed By: #### L 100.0500, L500.4050 #### [facility] [address] [place], [address] RDW SD 46.5 fl High 35.1-43.9 [facility] Comment on above: Order Comment: 103.1 Performed By: #### L 100.0500, L500.4050 #### [facility] [address] [place], [address] WBC (Bld) [#/Vol] 8.2 10*3/uL Normal 4.4-11.0 [facility] Comment on above: Order Comment: 103.1 Performed By: #### L 100.0500, L500.4050 #### [facility] [address] [place], [address] Carbon dioxide measurementOr dered By: Jared Guzman on 12-05-2024 CO2 [Moles/Vol] 31.0 mmol/L 21.0-32.0 [facility] Chloride measurementOrdered By: Jared Guzman on 12-05-2024 Chloride [Moles/Vol] 99 mmol/L 98-107 [facility] Comprehensive Metabolic Prof ilon 12-05-2024 Albumin [Mass/Vol] 3.0 g/dL Low 3.2-5.0 [facility] Comment on above: Order Comment: 103.1 Performed By: #### L 100.0500, L500.4050 #### [facility] [address] [place], [address] Albumin/Globulin [Mass ratio] 0.9 {ratio} Normal 0.9-2.4 [facility] Comment on above: Order Comment: 103.1 Performed By: #### L 100.0500, L500.4050 #### [facility] [address] [place], [address] ALK P 137 U/L High 45-117 [facility] Comment on above: Order Comment: 103.1 Performed By: #### L 100.0500, L500.4050 #### [facility] [address] [place], [address] ALT [Catalytic activity/Vol] 23 U/L Normal 13-56 [facility] Comment on above: Order Comment: 103.1 Performed By: #### L 100.0500, L500.4050 #### [facility] [address] [place], [address] AST [Catalytic activity/Vol] 12 U/L Low 15-37 [facility] Comment on above: Order Comment: 103.1 Performed By: #### L 100.0500, L500.4050 #### [facility] [address] [place], [address] Bilirubin [Mass/Vol] 0.50 mg/dL Normal 0.20-1.00 [facility] Comment on above: Order Comment: 103.1 Result Comment: For patients on eltrombopag therapy, use of Dimension Ovid TBIL is not recommended. Performed By: #### L 100.0500, L500.4050 #### [facility] [address] [place], [address] BUN/CRE 20.1 RATIO High 10-20 [facility] Comment on above: Order Comment: 103.1 Performed By: #### L 100.0500, L500.4050 #### [facility] [address] [place], [address] CA,Total 9.0 mg/dL Normal 8.5-10.1 [facility] Comment on above: Order Comment: 103.1 Performed By: #### L 100.0500, L500.4050 #### [facility] [address] [place], [address] Chloride [Moles/Vol] 99 mmol/L Normal 98-107 [facility] Comment on above: Order Comment: 103.1 Performed By: #### L 100.0500, L500.4050 #### [facility] [address] [place], [address] CO2 [Moles/Vol] 31.0 mmol/L Normal 21.0-32.0 [facility] Comment on above: Order Comment: 103.1 Performed By: #### L 100.0500, L500.4050 #### [facility] [address] [place], [address] Creatinine [Mass/Vol] 0.70 mg/dL Normal 0.55-1.02 [facility] Comment on above: Order Comment: 103.1 Result Comment: The validity of the calculated GFR GFRAA in patients over 70 years has not been determined. Clinical correlation is essential. Performed By: #### L 100.0500, L500.4050 #### [facility] [address] [place], [address] EST GFR - AA 111 mL/min Normal >60 [facility] Comment on above: Order Comment: 103.1 Result Comment: Afri can [place] GFR Calc Performed By: #### L 100.0500, L500.4050 #### [facility] [address] [place], [address] GAP 6 Normal 5-15 [facility] Comment on above: Order Comment: 103.1 Performed By: #### L 100.0500, L500.4050 #### [facility] [address] [place], [address] GFR/1.73 sq M.predicted among non-blacks MDRD (S/P/Bld) [Vol rate/Area] 92 mL/min/{1.73_m2} Normal >60 [facility] Comment on above: Order Comment: 103.1 Result Comment: Non- GFR Calc Performed By: #### L 100.0500, L500.4050 #### [facility] [address] [place], [address] Globulin (S) [Mass/Vol] 3.3 g/dL Normal 2.2-4.2 [facility] Comment on above: Order Comment: 103.1 Performed By: #### L 100.0500, L500.4050 #### [facility] [address] [place], [address] Glucose [Mass/Vol] 86 mg/dL Normal 74-106 [facility] Comment on above: Order Comment: 103.1 Performed By: #### L 100.0500, L500.4050 #### [facility] [address] [place], [address] Potassium [Moles/Vol] 3.0 mmol/L Low 3.5-5.1 [facility] Comment on above: Order Comment: 103.1 Performed By: #### L 100.0500, L500.4050 #### [facility] [address] [place], [address] Sodium [Moles/Vol] 136 mmol/L Normal 136-145 [facility] Comment on above: Order Comment: 103.1 Performed By: #### L 100.0500, L500.4050 #### [facility] [address] [place], [address] T PROT 6.3 g/dL Low 6.4-8.2 [facility] Comment on above: Order Comment: 103.1 Performed By: #### L 100.0500, L500.4050 #### [facility] [address] [place], [address] Urea nitrogen [Mass/Vol] 14 mg/dL Normal 7-18 [facility] Comment on above: Order Comment: 103.1 Performed By: #### L 100.0500, L500.4050 #### [facility] [address] [place], [address] Erythrocyte distribution wid th ratioOrdered By: Jared Guzman on 12-05-2024 Erythrocyte distribution width (RBC) [Ratio] 14.7 % High 11.6-14.6 [facility] Erythrocyte distribution wid th standard deviationOrdered By: Jared Guzman on 12-05-2024 Erythrocyte distribution width (RBC) [Entitic vol] 46.5 fL High 35.1-43.9 [facility] Estimated glomerular filtrat ion rate (GFR) AmericanOrdered By: Jared Guzman on 12-05-2024 Estimated GFR (MDRD) Amer 111 mL/min >60 [facility] Comment on above: GFR Calc Glomerular filtration rate ( GFR) estimationOrdered By: Jared Guzman on 12-05-2024 Estimated GFR (MDRD) Non-Af Amer 92 mL/min >60 [facility] Comment on above: Non- GFR Calc Glucose measurementOrdered B y: Jared Guzman on 12-05-2024 Glucose [Mass/Vol] 86 mg/dL 74-106 [facility] Hematocrit Auto (Bld) [Volum e fraction]Ordered By: Jared Guzman on 12-05-2024 Hematocrit (Bld) [Volume fraction] 35.9 % Low 37-47 [facility] Hemoglobin measurementOrdere d By: Jared Guzman on 12-05-2024 Hemoglobin (Bld) [Mass/Vol] 11.1 g/dL Low 12.0-15.0 [facility] - Chemistry and C hemistry - challengeOrdered By: Jared Guzman on 12-05-2024 AST [Catalytic activity/Vol] 12 U/L Low 15-37 [facility] MCV (mean corpuscular volume ) determinationOrdered By: Jared Guzman on 12-05-2024 MCV (RBC) [Entitic vol] 85.7 fL 81-99 [facility] Mean corpuscular hemoglobin (MCH) determinationOrdered By: Jared Guzman on 12-05-2024 MCH (RBC) [Entitic mass] 26.5 pg Low 27.0-32.0 [facility] Mean corpuscular hemoglobin concentration (MCHC) determinationOrdered By: Jared Guzman on 12-05-2024 MCHC (RBC) [Mass/Vol] 30.9 g/dL Low 32-36 [facility] Mean platelet volume determi nationOrdered By: Jared Guzman on 12-05-2024 Platelet mean volume (Bld) [Entitic vol] 10.2 fL 6.2-12.0 [facility] Platelet countOrdered By: Marcel Piper on 12-05-2024 Platelets (Bld) [#/Vol] 355 10*3/uL 150-450 [facility] Potassium measurementOrdered By: Jared Guzman on 12-05-2024 Potassium [Moles/Vol] 3.0 mmol/L Low 3.5-5.1 [facility] RBC Auto (Bld) [#/Vol]Ordere d By: Jared Guzman on 12-05-2024 RBC (Bld) [#/Vol] 4.19 10*6/uL Low 4.2-5.4 [facility] Serum anion gap measurementO rdered By: Jared Guzman on 12-05-2024 Anion gap [Moles/Vol] 6 mmol/L 5-15 [facility] Serum globulin measurementOr dered By: Jared Guzman on 12-05-2024 Globulin (S) [Mass/Vol] 3.3 g/dL 2.2-4.2 [facility] Serum or plasma alanine jones otransferase (ALT) measurementOrdered By: Jared Guzman on 12-05-2024 ALT [Catalytic activity/Vol] 23 U/L 13-56 [facility] Serum or plasma albumin mauricio urement (mass/volume)Ordered By: Jared Guzman on 12-05-2024 Albumin [Mass/Vol] 3.0 g/dL Low 3.2-5.0 [facility] Serum or plasma alkaline abbey sphatase measurementOrdered By: Jared Guzman on 12-05-2024 ALP [Catalytic activity/Vol] 137 U/L High 45-117 [facility] Serum or plasma calcium mauricio urement (mass/volume)Ordered By: Jared Guzman on 12-05-2024 Calcium [Mass/Vol] 9.0 mg/dL 8.5-10.1 [facility] Serum or plasma creatinine m easurement (mass/volume)Ordered By: Jared Guzman on 12-05-2024 Creatinine [Mass/Vol] 0.70 mg/dL 0.55-1.02 [facility] Comment on above: The validity of the calculated GFR & GFRAA in patients over 70 years has not been determined. Clinical correlation is essential. Serum or plasma urea nitroge n measurement (mass/volume)Ordered By: Jared Guzman on 12-05-2024 Urea nitrogen [Mass/Vol] 14 mg/dL 7-18 [facility] Sodium levelOrdered By: Main Guzman on 12-05-2024 Sodium [Moles/Vol] 136 mmol/L 136-145 [facility] Total proteinOrdered By: Mike Guzman on 12-05-2024 Protein [Mass/Vol] 6.3 g/dL Low 6.4-8.2 [facility] White blood cell (WBC) count Ordered By: Jared Guzman on 12-05-2024 WBC (Bld) [#/Vol] 8.2 10*3/uL 4.4-11.0 [facility] 36on 12-01-2024 36 Faxed new [facility] cary to [facility] at fax #: [phone]. Normal [facility] BASIC METABOLIC PANELon 11-09 Anion gap [Moles/Vol] 10 mmol/L Normal 3-13 [facility] Comment on above: Performed By: #### L [id number] ####Composite Assembler: KEMAR ABEBE ([id number])[facility] ([facility])[address] [place] [address] Calcium [Mass/Vol] 9.0 mg/dL Normal 8.4-10.2 [facility] Comment on above: Performed By: #### L [id number] ####Composite Assembler: KEMAR ABEBE ([id number])[facility] ([facility])[address] Chloride [Moles/Vol] 102 mmol/L Normal 98-107 [facility] Comment on above: Performed By: #### L AB15 ####Composite Assembler: KEMAR ABEBE ([id number])[facility] CO2 [Moles/Vol] 25 mmol/L Normal 22-29 [facility] Comment on above: Performed By: #### L AB15 ####Composite Assembler: KEMAR ABEBE ([id number])[facility] ([facility])[address] Creatinine [Mass/Vol] 0.67 mg/dL Normal [facility] Comment on above: Performed By: #### L AB15 ####Composite Assembler: KEMAR ABEBE ([id number])[facility] ([facility])[address] GLOMERULAR FILTRATION RATE ML/MIN/1.73 SQ M.PREDICTED >90.0 Normal >60.0 [facility] Comment on above: Result Comment: Calc ulation based on the Chronic Kidney Disease Epidemiology Collaboration (CKD-EPI) equation refit without adjustment for race Performed By: #### L AB15 ####Composite Assembler: KEMAR ABEBE ([id number])[facility] ([facility])[address] [place] [address] [place] Glucose [Mass/Vol] 215 mg/dL High 74-100 [facility] Comment on above: Performed By: #### L AB15 ####Composite Assembler: KEMAR ABEBE ([id number])[facility] ([facility])[address] Potassium [Moles/Vol] 3.4 mmol/L Low 3.5-5.1 [facility] Comment on above: Result Comment: [facility] potassium values may be up to 0.5 mmol/L lower than serum values. Performed By: #### L AB15 ####Composite Assembler: KEMAR ABEBE ([id number])[facility] ([facility])[address] [place] [address] [place] Sodium [Moles/Vol] 137 mmol/L Normal 136-145 [facility] Comment on above: Performed By: #### L AB15 ####Composite Assembler: KEMAR ABEBE ([id number])[facility] ([facility])[address] [place] [address] [place] Urea nitrogen [Mass/Vol] 10 mg/dL Normal 9-23 [facility] Comment on above: Performed By: #### L AB15 ####Composite Assembler: KEMAR ABEBE ([id number])[facility] ([facility])[address] [place] [address] [place] Consulton 12-01-2024 Consult Normal [facility] ED Nursing Noteon 12-01-2024 ED Nursing Note Normal [facility] Progress Noteon 12-01-2024 Progress Note Normal [facility] Progress Note Normal [facility] Albumin to globulin ratioOrd ered By: Jared Guzman on 11-30-2024 Albumin/Globulin [Mass ratio] 0.4 {ratio} Low 0.9-2.4 [facility] Bilirubin, totalOrdered By: Jared Guzman on 11-30-2024 Bilirubin [Mass/Vol] 0.40 mg/dL 0.20-1.00 [facility] Comment on above: For patients on eltr ombopag therapy, use of Dimension Ovid TBIL is not recommended. Blood urea nitrogen (BUN)/cr eatinine ratioOrdered By: Jared Guzman on 11-30-2024 Urea nitrogen/Creatinine [Mass ratio] 10.5 mg/mg 10-20 [facility] CBC WITH AUTO DIFFERENTIALon 11-30-2024 Basophils (Bld) [#/Vol] 0.0 10*3/uL Normal 0.0-0.2 [facility] Comment on above: Performed By: #### L [id number] ####Composite Assembler: KEMAR ABEBE ([id number])[facility] ([facility])[address] [place] [address] Basophils/100 WBC (Bld) 0.2 % Normal 0.0-2.0 [facility] Comment on above: Performed By: #### L [id number] ####Composite Assembler: KEMAR ABEBE ([id number])[facility] [place] [address] Eosinophils (Bld) [#/Vol] 0.1 10*3/uL Normal 0.0-0.5 [facility] Comment on above: Performed By: #### L [id number] ####Composite Assembler: KEMAR ABEBE ([id number])[facility] [place] [address] Eosinophils/100 WBC (Bld) 1.2 % Normal 0.0-6.0 [facility] Comment on above: Performed By: #### L [id number] ####Composite Assembler: KEMAR LUDWIGSAAD ([id number])[facility] NETWORK[facility])[address] [place] [address] Erythrocyte distribution width (RBC) [Ratio] 14.7 % Normal 11.5-15.0 [facility] Comment on above: Performed By: #### L [id number] ####Composite Assembler: KEMAR LUDWIGSAAD ([id number])[facility] ([facility])[address] [place] [address] Hematocrit (Bld) [Volume fraction] 37.5 % Normal Male: 40.0-52.0 ; Female: 35.0-47.0 [facility] Comment on above: Performed By: #### L [id number] ####Composite Assembler: KEMAR ANDRAE ([id number])[facility] ([facility])[address] [place] [address] Hemoglobin (Bld) [Mass/Vol] 12.0 g/dL Normal 11.7-18.0 [facility] Comment on above: Performed By: #### L [id number] ####Composite Assembler: KEMAR ABEBE ([id number])[facility] ([facility])[address] [place] [address] IMMATURE GRANS % 0.6 % Normal 0.0-2.0 [facility] Comment on above: Performed By: #### L [id number] ####Composite Assembler: KEMAR LUDWIGSAAD ([id number])[facility] ([facility])[address] [place] [address] IMMATURE GRANS ABSOLUTE 0.1 10*3/uL High <0.1 [facility] Comment on above: Performed By: #### L [id number] ####Composite Assembler: KEMAR ABEBE ([id number])[facility] ([facility])[address] [place] [address] Lymphocytes (Bld) [#/Vol] 1.3 10*3/uL Normal 1.0-4.3 [facility] Comment on above: Performed By: #### L [id number] ####Composite Assembler: KEMAR LUDWIGSAAD ([id number])[facility] ([facility])[address] Lymphocytes/100 WBC (Bld) 15.0 % Normal 15.0-45.0 [facility] Comment on above: Performed By: #### L [id number] ####Composite Assembler: KEMAR LUDWIGSAAD ([id number])[facility] ([facility])[address] MCH (RBC) [Entitic mass] 26.8 pg Normal 26.0-34.0 [facility] Comment on above: Performed By: #### L [id number] ####Composite Assembler: KEMAR MOMINHiginioSAAD ([id number])[facility]PITALWarren KASPEREmmie (SBHLAB)[address] MCHC 32.0 % Normal 30.5-36.0 [facility] Comment on above: Performed By: #### L [id number] ####Composite Assembler: KEMAR LUDWIGSAAD ([id number])[facility]PITALWarren WADECLOVIS BAP[facility] HOSPITALEmmie (SBHLAB)[address] MCV (RBC) [Entitic vol] 83.9 fL Normal 77.0-99.0 [facility] Comment on above: Performed By: #### L [id number] ####Composite Assembler: KEMAR ABEBE ([id number])[facility]ITALWarren [facility]BCLOV[facility]OSPITALN (SB[facility])[address] Monocytes (Bld) [#/Vol] 0.3 10*3/uL Normal 0.0-0.9 [facility] Comment on above: Performed By: #### L [id number] ####Composite Assembler: KEMAR ABEBE ([id number])[facility]ITALWarren [facility]BCLOV[facility]ITALN (SB[facility])[address] Monocytes/100 WBC (Bld) 3.7 % Low 5.0-13.0 [facility] Comment on above: Performed By: #### L [id number] ####Composite Assembler: KEMAR MOMINHiginioSAAD ([id number])[facility]ITALA [place] (SB[facility])[address] NEUTROPHILS ABSOLUTE 7.0 10*3/uL Normal 1.8-7.5 [facility] Comment on above: Performed By: #### L [id number] ####Composite Assembler: KEMAR MOMINHARRISON ([id number])[facility] [place] (SB[facility])[address] Neutrophils/100 WBC (Bld) 79.3 % Normal 38.0-82.0 [facility] Comment on above: Performed By: #### L [id number] ####Composite Assembler: KEMAR MOMINHARRISON ([id number])[facility]A [facility]BCLOV[facility]OSPITALN ([facility])[address] [place] [address] NRBC 0.0 /100 WBCs Normal 0.0-2.0 [facility] Comment on above: Performed By: #### L [id number] ####Composite Assembler: KEMAR LUDWIGSAAD ([id number])[facility]A BARBCLOV[facility] BAP[facility] HOSPITALN ([facility])[address] Platelet mean volume (Bld) [Entitic vol] 9.5 fL Normal 9.0-12.7 [facility] Comment on above: Performed By: #### L [id number] ####Composite Assembler: KEMAR ABEBE ([id number])[facility] [place] ([facility])[address] Platelets (Bld) [#/Vol] 384 10*3/uL Normal 140-440 [facility] Comment on above: Performed By: #### L [id number] ####Composite Assembler: KEMAR LUDWIGSAAD ([id number])[facility] [place] ([facility])[address] RBC (Bld) [#/Vol] 4.47 10*6/uL Normal Male: 4.40-5.90; Female: 3.80-5.20 [facility] Comment on above: Performed By: #### L [id number] ####Composite Assembler: KEMARDU MOMINHiginioSAAD ([id number])[facility]ITALWarren [place] (SB[facility])[address] [place] [address] WBC (Bld) [#/Vol] 8.8 10*3/uL Normal 3.6-10.7 [facility] Comment on above: Performed By: #### L [id number] ####Composite Assembler: KEMAR ABEBE ([id number])[facility]ITALWarren [facility] ([facility])[address] [place] [address] CBC-Complete Blood Cnt No Di ffon 11-30-2024 Erythrocyte distribution width (RBC) [Ratio] 15.1 % High 11.6-14.6 [facility] Comment on above: Order Comment: 103-1 Performed By: #### L 100.0500, L500.4050 #### [facility] [address] [place], [address] Hematocrit (Bld) [Volume fraction] 34.7 % Low 37-47 [facility] Comment on above: Order Comment: 103-1 Performed By: #### L 100.0500, L500.4050 #### [facility] [address] [place], [address] Hemoglobin (Bld) [Mass/Vol] 10.8 g/dL Low 12.0-15.0 [facility] Comment on above: Order Comment: 103-1 Performed By: #### L 100.0500, L500.4050 #### [facility] [address] [place], [address] MCH (RBC) [Entitic mass] 26.6 pg Low 27.0-32.0 [facility] Comment on above: Order Comment: 103-1 Performed By: #### L 100.0500, L500.4050 #### [facility] [address] [place], [address] MCHC (RBC) [Mass/Vol] 31.1 g/dL Low 32-36 [facility] Comment on above: Order Comment: 103-1 Performed By: #### L 100.0500, L500.4050 #### [facility] [address] [place], [address] MCV (RBC) [Entitic vol] 85.5 fL Normal 81-99 [facility] Comment on above: Order Comment: 103-1 Performed By: #### L 100.0500, L500.4050 #### [facility] [address] [place], [address] Platelet mean volume (Bld) [Entitic vol] 10.0 fL Normal 6.2-12.0 [facility] Comment on above: Order Comment: 103-1 Performed By: #### L 100.0500, L500.4050 #### [facility] [address] [place], [address] Platelets (Bld) [#/Vol] 375 10*3/uL Normal 150-450 [facility] Comment on above: Order Comment: 103-1 Performed By: #### L 100.0500, L500.4050 #### [facility] [address] [place], [address] RBC (Bld) [#/Vol] 4.06 10*6/uL Low 4.2-5.4 [facility] Comment on above: Order Comment: 103-1 Performed By: #### L 100.0500, L500.4050 #### [facility] [address] [place], [address] RDW SD 46.6 fl High 35.1-43.9 [facility] Comment on above: Order Comment: 103-1 Performed By: #### L 100.0500, L500.4050 #### [facility] [address] [place], [address] WBC (Bld) [#/Vol] 8.4 10*3/uL Normal 4.4-11.0 [facility] Comment on above: Order Comment: 103-1 Performed By: #### L 100.0500, L500.4050 #### [facility] [address] [place], [address] COMPLETE URINALYSISon 2024 BACTERIA (#/HPF) IN URINE Negative Normal Negative [facility] Comment on above: Performed By: #### L [id number] ####Composite Assembler: KEMAR ABEBE ([id number])[facility]ITALA BARBCLOVIS BAPTIST HOSPITALEmmie (SBHLAB)[address] BILIRUBIN, TOTAL PRESENCE IN URINE Negative Normal Negative [facility] Comment on above: Performed By: #### L [id number] ####Composite Assembler: KEMAR ABEBE ([id number])[facility]A [place] (SB[facility])[address] Clarity (U) Clear Normal Clear [facility] Comment on above: Performed By: #### L [id number] ####Composite Assembler: KEMAR ABEBE ([id number])[facility] [place] (SB[facility])[address] Color (U) Light Yellow Normal Lt. Yellow [facility] Comment on above: Performed By: #### L [id number] ####Composite Assembler: KEMAR ABEBE ([id number])[facility] [place] ([facility])[address] Glucose (U) [Mass/Vol] 50 mg/dL Normal Janey l (<70) [facility] Comment on above: Performed By: #### L [id number] ####Composite Assembler: KEMAR ABEBE ([id number])[facility] (SB[facility])[address] HEMOGLOBIN PRESENCE IN URINE 1.0 mg/dL Abnormal Negative [facility] Comment on above: Performed By: #### L [id number] ####Composite Assembler: KEMAR ABEBE ([id number])[facility] [place] ([facility])[address] HYALINE CASTS (#/LPF) IN URINE SEDIMENT BY MICROSCOPY 0-2 Abnormal Negative [facility] Comment on above: Performed By: #### L [id number] ####Composite Assembler: KEMAR LUDWIGSAAD ([id number])[facility]A [facility]BCLOV[facility]N (SB[facility])[address] Ketones Ql (U) Trace Abnormal Negative [facility] Comment on above: Performed By: #### L [id number] ####Composite Assembler: KEMAR ABEBE ([id number])[facility]A [facility]BCLOV[facility]N [facility] LEUKOCYTE ESTERASE PRESENCE IN URINE BY TEST STRIP Negative Normal Negative [facility] Comment on above: Performed By: #### L [id number] ####Composite Assembler: KEMAR ABEBE ([id number])[facility]A [facility]BCL[facility]N ([facility])[address] [place] [address] [place] MUCUS (#/LPF) IN URINE SEDIMENT Few Normal Negative [facility] Comment on above: Performed By: #### L [id number] ####Composite Assembler: KEMAR LUDWIGSAAD ([id number])[facility]A [facility] ([facility])[address] NITRITE PRESENCE IN URINE Negative Normal Negative [facility] Comment on above: Performed By: #### L [id number] ####Composite Assembler: KEMAR ABEBE ([id number])[facility] [place] ([facility])[address] pH (U) 6.0 [pH] Normal 5.0-8.0 [facility] Comment on above: Performed By: #### L [id number] ####Composite Assembler: KEMAR ABEBE ([id number])[facility]A [facility]BCL[facility]N ([facility])[address] Protein (U) [Mass/Vol] 100 mg/dL Abnormal Negative [facility] Comment on above: Performed By: #### L [id number] ####Composite Assembler: KEMAR ABEBE ([id number])[facility]A [place] (SBHLAB)[address] [place] [address] RBC (#/HPF) IN URINE SEDIMENT >100 Abnormal 0-2 [facility] Comment on above: Performed By: #### L [id number] ####Composite Assembler: KEMAR ABEBE ([id number])[facility]ITALA [facility] (SB[facility])[address] [place] [address] Specific gravity (U) [Rel density] 1.012 Normal 1.005-1.030 [facility] Comment on above: Performed By: #### L [id number] ####Composite Assembler: KEMAR ABEBE ([id number])[facility] ([facility])[address] [place] [address] SQUAMOUS EPITHELIAL CELLS (#/HPF) IN URINE SEDIMENT 3-5 Normal 3-5 [facility] Comment on above: Performed By: #### L [id number] ####Composite Assembler: KEMAR ABEBE ([id number])[facility])[address] [place] [address] UROBILINOGEN (MG/DL) IN URINE Normal Normal Normal (0-1) [facility] Comment on above: Performed By: #### L [id number] ####Composite Assembler: KEMAR ABEBE ([id number])[facility] ([facility])[address] [place] [address] WBC (LEUKOCYTE) (#/HPF) IN URINE SEDIMENT 0-2 Normal 0-5 [facility] Comment on above: Performed By: #### L [id number] ####Composite Assembler: KEMAR ABEBE ([id number])[facility] ([facility])[address] [place] [address] COMPREHENSIVE METABOLIC PANE Gigi 11-30-2024 Albumin [Mass/Vol] 3.4 g/dL Low 3.5-5.0 [facility] Comment on above: Performed By: #### Elijah [id number], LAB17, RGE392, LAB99 ####Composite Assembler: KEMAR ABEBE ([id number])[facility] [place] ([facility])[address] ALP [Catalytic activity/Vol] 145 U/L Normal [facility] Comment on above: Performed By: #### Elijah [id number], LAB17, YWA802, LAB99 ####Composite Assembler: KEMAR ABEBE ([id number])[facility] [place] ([facility])[address] ALT [Catalytic activity/Vol] 21 U/L Normal [facility] Comment on above: Performed By: #### Elijah [id number], LAB17, POU524, LAB99 ####Composite Assembler: KEMAR ABEBE ([id number])[facility] [place] ([facility])[address] Anion gap [Moles/Vol] 11 mmol/L Normal 3-13 [facility] Comment on above: Performed By: #### Elijah [id number], LAB17, SDS794, LAB99 ####Composite Assembler: KEMAR ABEBE ([id number])[facility] [place] (SB[facility])[address] AST [Catalytic activity/Vol] 21 U/L Normal <34 [facility] Comment on above: Performed By: #### Elijah [id number], LAB17, KUM711, LAB99 ####Composite Assembler: KEMAR ABEBE ([id number])[facility] [place] ([facility])[address] [place] [address] [place] Bilirubin [Mass/Vol] 0.5 mg/dL Normal <1.2 [facility] Comment on above: Performed By: #### L [id number], LAB17, MIC890, LAB99 ####Composite Assembler: KEMAR ABEBE ([id number])[facility] [place] ([facility])[address] [place] [address] [place] Calcium [Mass/Vol] 8.9 mg/dL Normal 8.4-10.2 [facility] Comment on above: Performed By: #### L [id number], LAB17, BOX644, LAB99 ####Composite Assembler: KEMAR ABEBE ([id number])[facility]ITALWarren [facility] (SB[facility])[address] Chloride [Moles/Vol] 99 mmol/L Normal 98-107 [facility] Comment on above: Performed By: #### L [id number], LAB17, PGW999, LAB99 ####Composite Assembler: KEMAR ABEBE ([id number])[facility] ([facility])[address] CO2 [Moles/Vol] 28 mmol/L Normal 22-29 [facility] Comment on above: Performed By: #### Elijah [id number], LAB17, BQU147, LAB99 ####Composite Assembler: KEMAR ABEBE ([id number])[facility] ([facility])[address] Creatinine [Mass/Vol] 0.73 mg/dL Normal [facility] Comment on above: Performed By: #### L [id number], LAB17, AGB616, LAB99 ####Composite Assembler: KEMAR ABEBE ([id number])[facility] ([facility])[address] GLOMERULAR FILTRATION RATE ML/MIN/1.73 SQ M.PREDICTED >90.0 Normal >60.0 [facility] Comment on above: Result Comment: Calc ulation based on the Chronic Kidney Disease Epidemiology Collaboration (CKD-EPI) equation refit without adjustment for race Performed By: #### L [id number], LAB17, AKV057, LAB99 ####Composite Assembler: KEMAR ABEBE ([id number])[facility] ([facility])[address] Glucose [Mass/Vol] 249 mg/dL High 74-100 [facility] Comment on above: Performed By: #### L [id number], LAB17, GCL735, LAB99 ####Composite Assembler: KEMAR ABEBE ([id number])[facility] ([facility])[address] Potassium [Moles/Vol] 3.4 mmol/L Low 3.5-5.1 [facility] Comment on above: Result Comment: [facility] potassium values may be up to 0.5 mmol/L lower than serum values. Performed By: #### L [id number], LAB17, CRB962, LAB99 ####Composite Assembler: KEMAR ABEBE ([id number])[facility] ([facility])[address] Protein [Mass/Vol] 6.7 g/dL Normal 6.4-8.3 [facility] Comment on above: Performed By: #### L [id number], LAB17, PJP587, LAB99 ####Composite Assembler: KEMAR ABEBE ([id number])[facility] ([facility])[address] [place] [address] Sodium [Moles/Vol] 138 mmol/L Normal 136-145 [facility] Comment on above: Performed By: #### L [id number], LAB17, VPV206, LAB99 ####Composite Assembler: KEMAR ABEBE ([id number])[facility] ([facility])[address] [place] [address] Urea nitrogen [Mass/Vol] 10 mg/dL Normal 9-23 [facility] Comment on above: Performed By: #### L [id number], LAB17, QPC819, LAB99 ####Composite Assembler: KEMAR ABEBE ([id number])[facility] ([facility])[address] Carbon dioxide measurementOr dered By: Jared Guzman on 11-30-2024 CO2 [Moles/Vol] 18.0 mmol/L Low 21.0-32.0 [facility] Chloride measurementOrdered By: Jared Guzman on 11-30-2024 Chloride [Moles/Vol] 104 mmol/L 98-107 [facility] Comprehensive Metabolic Prof ilon 11-30-2024 Albumin [Mass/Vol] 2.0 g/dL Low 3.2-5.0 [facility] Comment on above: Order Comment: UNKNO WN METHOD OF COLLECTION CLEAN CATCH Performed By: #### M 100.2200, L400.0001 #### [facility] [address] [place], [address] Albumin/Globulin [Mass ratio] 0.4 {ratio} Low 0.9-2.4 [facility] Comment on above: Order Comment: UNKNO WN METHOD OF COLLECTION CLEAN CATCH Performed By: #### M 100.2200, L400.0001 #### [facility] [address] [place], [address] ALK P 137 U/L High 45-117 [facility] Comment on above: Order Comment: UNKNO WN METHOD OF COLLECTION CLEAN CATCH Performed By: #### M 100.2200, L400.0001 #### [facility] [address] [place], [address] ALT [Catalytic activity/Vol] 26 U/L Normal 13-56 [facility] Comment on above: Order Comment: UNKNO WN METHOD OF COLLECTION CLEAN CATCH Performed By: #### M 100.2200, L400.0001 #### [facility] [address] [place], [address] AST [Catalytic activity/Vol] 15 U/L Normal 15-37 [facility] Comment on above: Order Comment: UNKNO WN METHOD OF COLLECTION CLEAN CATCH Performed By: #### M 100.2200, L400.0001 #### [facility] [address] [place], [address] Bilirubin [Mass/Vol] 0.40 mg/dL Normal 0.20-1.00 [facility] Comment on above: Order Comment: UNKNO WN METHOD OF COLLECTION CLEAN CATCH Result Comment: For patients on eltrombopag therapy, use of Dimension Ovid TBIL is not recommended. Performed By: #### M 100.2200, L400.0001 #### [facility] [address] [place], [address] BUN/CRE 10.5 RATIO Normal 10-20 [facility] Comment on above: Order Comment: UNKNO WN METHOD OF COLLECTION CLEAN CATCH Performed By: #### M 100.2200, L400.0001 #### [facility] [address] [place], [address] CA,Total 5.9 mg/dL Invalid Interpretation Code 8.5-10.1 [facility] Comment on above: Order Comment: UNKNO WN METHOD OF COLLECTION CLEAN CATCH Performed By: #### M 100.2200, L400.0001 #### [facility] [address] [place], [address] Chloride [Moles/Vol] 104 mmol/L Normal 98-107 [facility] Comment on above: Order Comment: UNKNO WN METHOD OF COLLECTION CLEAN CATCH Performed By: #### M 100.2200, L400.0001 #### [facility] [address] [place], [address] CO2 [Moles/Vol] 18.0 mmol/L Low 21.0-32.0 [facility] Comment on above: Order Comment: UNKNO WN METHOD OF COLLECTION CLEAN CATCH Performed By: #### M 100.2200, L400.0001 #### [facility] [address] [place], [address] Creatinine [Mass/Vol] 0.57 mg/dL Normal 0.55-1.02 [facility] Comment on above: Order Comment: UNKNO WN METHOD OF COLLECTION CLEAN CATCH Result Comment: The validity of the calculated GFR GFRAA in patients over 70 years has not been determined. Clinical correlation is essential. Performed By: #### M 100.2200, L400.0001 #### [facility] [address] [place], [address] EST GFR - AA 140 mL/min Normal >60 [facility] Comment on above: Order Comment: UNKNO WN METHOD OF COLLECTION CLEAN CATCH Result Comment: Afri can [place] GFR Calc Performed By: #### M 100.2200, L400.0001 #### [facility] [address] [place], [address] GAP 16 High 5-15 [facility] Comment on above: Order Comment: UNKNO WN METHOD OF COLLECTION CLEAN CATCH Performed By: #### M 100.2200, L400.0001 #### [facility] [address] [place], [address] GFR/1.73 sq M.predicted among non-blacks MDRD (S/P/Bld) [Vol rate/Area] 116 mL/min/{1.73_m2} Normal >60 [facility] Comment on above: Order Comment: UNKNO WN METHOD OF COLLECTION CLEAN CATCH Result Comment: Non- GFR Calc Performed By: #### M 100.2200, L400.0001 #### [facility] [address] [place], [address] Globulin (S) [Mass/Vol] 4.6 g/dL High 2.2-4.2 [facility] Comment on above: Order Comment: UNKNO WN METHOD OF COLLECTION CLEAN CATCH Performed By: #### M 100.2200, L400.0001 #### [facility] [address] [place], [address] Glucose [Mass/Vol] 72 mg/dL Low 74-106 [facility] Comment on above: Order Comment: UNKNO WN METHOD OF COLLECTION CLEAN CATCH Performed By: #### M 100.2200, L400.0001 #### [facility] [address] [place], [address] Potassium [Moles/Vol] 3.3 mmol/L Low 3.5-5.1 [facility] Comment on above: Order Comment: UNKNO WN METHOD OF COLLECTION CLEAN CATCH Performed By: #### M 100.2200, L400.0001 #### [facility] [address] [place], [address] Sodium [Moles/Vol] 138 mmol/L Normal 136-145 [facility] Comment on above: Order Comment: UNKNO WN METHOD OF COLLECTION CLEAN CATCH Performed By: #### M 100.2200, L400.0001 #### [facility] [address] [place], [address] T PROT 6.6 g/dL Normal 6.4-8.2 [facility] Comment on above: Order Comment: UNKNO WN METHOD OF COLLECTION CLEAN CATCH Performed By: #### M 100.2200, L400.0001 #### [facility] [address] [place], [address] Urea nitrogen [Mass/Vol] 6 mg/dL Low 7-18 [facility] Comment on above: Order Comment: UNKNO WN METHOD OF COLLECTION CLEAN CATCH Performed By: #### M 100.2200, L400.0001 #### [facility] [address] [place], [address] ED Nursing Noteon 11-30-2024 ED Nursing Note Patient has had some chest discomfort since this morning. Recently had a PICC line placed in upper right arm for fluids. Normal [facility] ED Provider Noteon ED Provider Note Normal [facility] Erythrocyte distribution wid th ratioOrdered By: Jared Guzman on 11-30-2024 Erythrocyte distribution width (RBC) [Ratio] 15.1 % High 11.6-14.6 [facility] Erythrocyte distribution wid th standard deviationOrdered By: Jared Guzman on 11-30-2024 Erythrocyte distribution width (RBC) [Entitic vol] 46.6 fL High 35.1-43.9 [facility] Estimated glomerular filtrat ion rate (GFR) AmericanOrdered By: Jared Guzman on 11-30-2024 Estimated GFR (MDRD) Amer 140 mL/min >60 [facility] Comment on above: GFR Calc Glomerular filtration rate ( GFR) estimationOrdered By: Jared Guzman on 11-30-2024 Estimated GFR (MDRD) Non-Af Amer 116 mL/min >60 [facility] Comment on above: Non- GFR Calc Glucose measurementOrdered B y: Jared Guzman on 11-30-2024 Glucose [Mass/Vol] 72 mg/dL Low 74-106 [facility] HIGH SENSITIVITY TROPONIN, S ERIAL BASELINEon 11-30-2024 TROPONIN HIGH SENSITIVITY BASELINE <3 Normal [facility] Comment on above: Performed By: #### L [id number] ####Composite Assembler: KEMAR ABEBE ([id number])[facility] TROPONIN HIGH SENSITIVITY BASELINE <3 Normal [facility] Comment on above: Performed By: #### L [id number], LAB17, [id number], LAB99 ####Composite Assembler: KEMAR ABEBE ([id number])[facility] HIGH SENSITIVITY TROPONIN, S ERIAL, SECOND TESTon 11-30-2024 TROPONIN HS, SERIAL REFLEX, TEST TWO <3 Normal [facility] Comment on above: Performed By: #### L [id number] ####Composite Assembler: KEMAR ABEBE ([id number])[facility])[address] [place] [address] Hematocrit Auto (Bld) [Volum e fraction]Ordered By: Jared Guzman on 11-30-2024 Hematocrit (Bld) [Volume fraction] 34.7 % Low 37-47 [facility] Hemoglobin measurementOrdere d By: Jared Guzman on 11-30-2024 Hemoglobin (Bld) [Mass/Vol] 10.8 g/dL Low 12.0-15.0 [facility] LIPASEon 11-30-2024 Lipase [Catalytic activity/Vol] 7 U/L Normal <55 [facility] Comment on above: Performed By: #### L [id number], LAB17, [id number], LAB99 ####Composite Assembler: KEMAR ABEBE ([id number])[facility]ITAL[facility] DAWES ([facility])[address] Laboratory - Chemistry and C hemistry - challengeOrdered By: Jared Guzman on 11-30-2024 AST [Catalytic activity/Vol] 15 U/L 15-37 [facility] MAGNESIUMon 11-30-2024 Magnesium [Mass/Vol] 1.5 mg/dL Low 1.6-2.6 [facility] Comment on above: Result Comment: MARIE R COMMENTS:Higher values can be expected in females during menses. Performed By: #### L [id number], LAB17, [id number], LAB99 ####Composite Assembler: KEMAR ABEBE ([id number])[facility]ITALWarren [facility] ([facility])[address] MCV (mean corpuscular volume ) determinationOrdered By: Jared Guzman on 11-30-2024 MCV (RBC) [Entitic vol] 85.5 fL 81-99 [facility] Mean corpuscular hemoglobin (MCH) determinationOrdered By: Jared Guzman on 11-30-2024 MCH (RBC) [Entitic mass] 26.6 pg Low 27.0-32.0 [facility] Mean corpuscular hemoglobin concentration (MCHC) determinationOrdered By: Jared Guzman on 11-30-2024 MCHC (RBC) [Mass/Vol] 31.1 g/dL Low 32-36 [facility] Mean platelet volume determi nationOrdered By: Jared Guzman on 11-30-2024 Platelet mean volume (Bld) [Entitic vol] 10.0 fL 6.2-12.0 [facility] Platelet countOrdered By: Marcel Piper on 11-30-2024 Platelets (Bld) [#/Vol] 375 10*3/uL 150-450 [facility] Potassium measurementOrdered By: Jared Guzman on 11-30-2024 Potassium [Moles/Vol] 3.3 mmol/L Low 3.5-5.1 [facility] RBC Auto (Bld) [#/Vol]Ordere d By: Jared Guzman on 11-30-2024 RBC (Bld) [#/Vol] 4.06 10*6/uL Low 4.2-5.4 [facility] Serum anion gap measurementO rdered By: Jared Guzman on 11-30-2024 Anion gap [Moles/Vol] 16 mmol/L High 5-15 [facility] Serum globulin measurementOr dered By: Jared Guzman on 11-30-2024 Globulin (S) [Mass/Vol] 4.6 g/dL High 2.2-4.2 [facility] Serum or plasma alanine jones otransferase (ALT) measurementOrdered By: Jared Guzman on 11-30-2024 ALT [Catalytic activity/Vol] 26 U/L 13-56 [facility] Serum or plasma albumin mauricio urement (mass/volume)Ordered By: Jared Guzman on 11-30-2024 Albumin [Mass/Vol] 2.0 g/dL Low 3.2-5.0 [facility] Serum or plasma alkaline abbey sphatase measurementOrdered By: Jared Guzman on 11-30-2024 ALP [Catalytic activity/Vol] 137 U/L High 45-117 [facility] Serum or plasma calcium mauricio urement (mass/volume)Ordered By: Jared Guzman on 11-30-2024 Calcium [Mass/Vol] 5.9 mg/dL Low 8.5-10.1 [facility] Serum or plasma creatinine m easurement (mass/volume)Ordered By: Jared Guzman on 11-30-2024 Creatinine [Mass/Vol] 0.57 mg/dL 0.55-1.02 [facility] Comment on above: The validity of the calculated GFR & GFRAA in patients over 70 years has not been determined. Clinical correlation is essential. Serum or plasma urea nitroge n measurement (mass/volume)Ordered By: Jared Guzman on 11-30-2024 Urea nitrogen [Mass/Vol] 6 mg/dL Low 7-18 [facility] Sodium levelOrdered By: Main Guzman on 11-30-2024 Sodium [Moles/Vol] 138 mmol/L 136-145 [facility] Total proteinOrdered By: Mike Guzman on 11-30-2024 Protein [Mass/Vol] 6.6 g/dL 6.4-8.2 [facility] US ABDOMEN LIMITEDon 025 US ABDOMEN LIMITED Normal [facility] White blood cell (WBC) count Ordered By: Jared Guzman on 11-30-2024 WBC (Bld) [#/Vol] 8.4 10*3/uL 4.4-11.0 [facility] 36on 11-28-2024 36 I have reviewed the pt's glucose log. Based on interpretation of the FSBS data I recommend the following changes to the pt's antihyperglycemic regimen: Please increase Humulin u500 to 140 units three times daily before meals. Med rec updated: Yes 36 Patients BGL 36on 11-22-2024 36 36 Unable to reach Nayan h at [facility] to reschedule appt with Makayla Guerrero on 11/27/2024. Called SNF again at [phone] and spoke to Quiana again. Rescheduled pt to 01/01/25 and per Nayan Arayah will call if there is a problem with this date/time. Normal [facility] 36on 11-21-2024 36 Normal [facility] 36 Patient's BGL Normal [place] [address]on 11-20-2024 36 Addendum completed. Sending message to provider as FYI, please indicate if/when patient needs fu with provider to review. Will forward to staff to schedule if indicated. Thank you. Normal [facility] 36on 11-19-2024 36 Normal [facility] CT CHEST ANGIOGRAM W AND/OR WO IV CONTRASTon 11-18-2024 CT CHEST ANGIOGRAM W AND/OR WO IV CONTRAST Normal [facility] 36on 11-15-2024 36 Patient's BGL Normal [facility] 36on 11-14-2024 36 Noted. Request email ed to radiology team. Progress Noteon 11-14-2024 Progress Note Normal [facility] 36on 11-13-2024 36 Normal [facility] BASIC METABOLIC PANELon Anion gap [Moles/Vol] 10 mmol/L Normal 3-13 [facility] Comment on above: Performed By: #### L AB15, LAB99, LAB20 ####Composite Assembler: KEMAR ABEBE ([id number])[facility]ITALWar[facility] SHERIKATIA ([facility])[address] Calcium [Mass/Vol] 8.7 mg/dL Normal 8.4-10.2 [facility] Comment on above: Performed By: #### L AB15, LAB99, LAB20 ####Composite Assembler: KEMAR ABEBE ([id number])[facility]ITALA [place] ([facility])[address] Chloride [Moles/Vol] 105 mmol/L Normal 98-107 [facility] Comment on above: Performed By: #### L AB15, LAB99, LAB20 ####Composite Assembler: KEMAR ABEBE ([id number])[facility]ITALA [facility]KATIA ([facility])[address] CO2 [Moles/Vol] 26 mmol/L Normal 22-29 [facility] Comment on above: Performed By: #### L AB15, LAB99, LAB20 ####Composite Assembler: KEMAR ABEBE ([id number])[facility]ITALA [facility]MARYN ([facility])[address] Creatinine [Mass/Vol] 1.01 mg/dL Normal [facility] Comment on above: Performed By: #### L AB15, LAB99, LAB20 ####Composite Assembler: KEMAR ABEBE ([id number])[facility]ITALA [place]N ([facility])[address] GLOMERULAR FILTRATION RATE ML/MIN/1.73 SQ M.PREDICTED 64.7 mL/min/1.73m*2 Normal >60.0 [facility] Comment on above: Result Comment: Calc ulation based on the Chronic Kidney Disease Epidemiology Collaboration (CKD-EPI) equation refit without adjustment for race Performed By: #### L AB15, LAB99, LAB20 ####Composite Assembler: KEMAR ABEBE ([id number])[facility]OSPITALWarren [place]ADEKAT[place] ([facility])[address] Glucose [Mass/Vol] 87 mg/dL Normal 74-100 [facility] Comment on above: Performed By: #### L AB15, LAB99, LAB20 ####Composite Assembler: KEMAR ABEBE ([id number])[facility]PITALWarren [facility] ([facility])[address] Potassium [Moles/Vol] 3.9 mmol/L Normal 3.5-5.1 [facility] Comment on above: Result Comment: [facility] potassium values may be up to 0.5 mmol/L lower than serum values. Performed By: #### L AB15, LAB99, LAB20 ####Composite Assembler: KEMAR ABEBE ([id number])[facility]ITALWar[facility] ([facility])[address] Sodium [Moles/Vol] 141 mmol/L Normal 136-145 [facility] Comment on above: Performed By: #### L AB15, LAB99, LAB20 ####Composite Assembler: KEMAR ABEBE ([id number])[facility] ([facility])[address] Urea nitrogen [Mass/Vol] 18 mg/dL Normal 9-23 [facility] Comment on above: Performed By: #### L AB15, LAB99, LAB20 ####Composite Assembler: KEMAR ABEBE ([id number])[facility] ([facility])[address] Basic metabolic 1998 panelon 11-12-2024 Anion gap [Moles/Vol] 10 mmol/L 3 - 13 mmol/L [facility] Calcium [Mass/Vol] 8.7 mg/dL 8.4 - 10. 2 mg/dL [facility] Chloride [Moles/Vol] 105 mmol/L 98 - 10 7 mmol/L [facility] CO2 [Moles/Vol] 26 mmol/L 22 - 29 mmol/L [facility] Creatinine [Mass/Vol] 1.01 mg/dL [facility] GFR/1.73 sq M.predicted (S/P/Bld) [Vol rate/Area] 64.7 mL/min - PINF [facility] Comment on above: Calculation based on the Chronic Kidney Disease Epidemiology Collaboration (CKD-EPI) equation refit without adjustment for race Glucose [Mass/Vol] 87 mg/dL 74 - 100 mg/dL [facility] Potassium [Moles/Vol] 3.9 mmol/L 3.5 - 5.1 mmol/L [facility] Comment on above: Plasma potassium ehlen ues may be up to 0.5 mmol/L lower than serum values. Sodium [Moles/Vol] 141 mmol/L 136 - 145 mmol/L [facility] Urea nitrogen [Mass/Vol] 18 mg/dL 9 - 23 mg/dL [facility] CBC (HEMOGRAM)on 11-12-2024 Erythrocyte distribution width (RBC) [Ratio] 14.8 % Normal 11.5-15.0 [facility] Comment on above: Performed By: #### L AB294 ####Composite Assembler: KEMAR ABEBE ([id number])[facility] ([facility])[address] [place] [address] Hematocrit (Bld) [Volume fraction] 37.7 % Normal Male: 40.0-52.0 ; Female: 35.0-47.0 [facility] Comment on above: Performed By: #### L AB294 ####Composite Assembler: KEMAR ABEBE ([id number])[facility] ([facility])[address] [place] [address] Hemoglobin (Bld) [Mass/Vol] 12.0 g/dL Normal 11.7-18.0 [facility] Comment on above: Performed By: #### L AB294 ####Composite Assembler: KEMAR ABEBE ([id number])[facility] ([facility])[address] [place] [address] MCH (RBC) [Entitic mass] 27.2 pg Normal 26.0-34.0 [facility] Comment on above: Performed By: #### L AB294 ####Composite Assembler: KEMAR ABEBE ([id number])[facility] ([facility])[address] MCHC 31.8 % Normal 30.5-36.0 [facility] Comment on above: Performed By: #### L AB294 ####Composite Assembler: KEMAR ABEBE ([id number])NATI KASPERN ([facility])[address] MCV (RBC) [Entitic vol] 85.5 fL Normal 77.0-99.0 S [facility] Comment on above: Performed By: #### L AB294 ####Composite Assembler: KEMAR ABEBE ([id number])[facility]ITALWarren [facility] ([facility])[address] Platelet mean volume (Bld) [Entitic vol] 9.2 fL Normal 9.0-12.7 [facility] Comment on above: Performed By: #### L AB294 ####Composite Assembler: KEMAR ABEBE ([id number])[facility]ITALWarren [facility] ([facility])[address] Platelets (Bld) [#/Vol] 391 10*3/uL Normal 140-440 [facility] Comment on above: Performed By: #### L AB294 ####Composite Assembler: KEMAR ABEBE ([id number])[facility]ITALWarren [facility] ([facility])[address] RBC (Bld) [#/Vol] 4.41 10*6/uL Normal Male: 4.40-5.90; Female: 3.80-5.20 [facility] Comment on above: Performed By: #### L AB294 ####Composite Assembler: KEMAR ABEBE ([id number])[facility]ITALWarren [facility] ([facility])[address] WBC (Bld) [#/Vol] 8.6 10*3/uL Normal 3.6-10.7 [facility] Comment on above: Performed By: #### L AB294 ####Composite Assembler: KEMAR ABEBE ([id number])[facility] ([facility])[address] CBC panel Auto (Bld)on 11-12 Erythrocyte distribution width (RBC) [Ratio] 14.8 % 11.5 - 15.0 % [facility] Hematocrit (Bld) [Volume fraction] 37.7 % Male: 40.0-52.0 ; Female: 35.0-47.0 [facility] Hemoglobin (Bld) [Mass/Vol] 12 g/dL 11.7 - 18.0 g/dL [facility] MCH (RBC) [Entitic mass] 27.2 pg 26.0 - 34.0 pg [facility] MCHC (RBC) [Mass/Vol] 31.8 % 30.5 - 36.0 % [facility] MCV (RBC) [Entitic vol] 85.5 fL 77.0 - 99.0 fL [facility] Platelet mean volume (Bld) [Entitic vol] 9.2 fL 9.0 - 12.7 fL [facility] Platelets (Bld) [#/Vol] 391 10*3/uL 140 - 440 10*3/uL [facility] RBC (Bld) [#/Vol] 4.41 10*6/uL Male: 4.40-5.90; Female: 3.80-5.20 [facility] WBC (Bld) [#/Vol] 8.6 10*3/uL 3.6 - 10.7 10*3/uL [facility] CT ABDOMEN PELVIS WO IV CONT RASTon 11-12-2024 CT ABDOMEN PELVIS WO IV CONTRAST Normal [facility] CT Abdomen and Pelvis WO con traston 11-12-2024 1. Decompressed gallbladder, with apparent cholelithiasis. 2. 9 mm nodular density right middle lobe not appreciably changed. 3. No other acute findings. Report Dictated on Electronically Signed By: Joel Haddad MD Electronically Signed Date/Time: 11/12/2024 11:13 PM [facility] [employer] Patient Name: WILL ALVARADO : 1965 [...] body habitus versus diastases-type ventral hernia, unchanged. [facility] RADIOLOGY SYSTEM Joel Haddad MD - 11/12/2024 [...] Electronically Signed Date/Time: 11/12/2024 11:13 PM EST [facility] Radiology Study observation (narrative) [facility] CT Abdomen and Pelvis WO con trastOrdered By: Joel Haddad on 11-12-2024 [facility] Work Phone: ED Provider Noteon ED Provider Note Normal [facility] HEPATIC FUNCTION PANELon Albumin [Mass/Vol] 3.3 g/dL Low 3.5-5.0 [facility] Comment on above: Performed By: #### L AB15, LAB99, LAB20 ####Composite Assembler: KEMAR ABEBE ([id number])[facility] ([facility])[address] [place] [address] ALP [Catalytic activity/Vol] 143 U/L Normal [facility] Comment on above: Performed By: #### L AB15, LAB99, LAB20 ####Composite Assembler: KEMAR ABEBE ([id number])[facility] ([facility])[address] [place] [address] ALT [Catalytic activity/Vol] 65 U/L Normal [facility] Comment on above: Performed By: #### L AB15, LAB99, LAB20 ####Composite Assembler: KEMAR ABEBE ([id number])[facility] ([facility])[address] AST [Catalytic activity/Vol] 42 U/L High <34 [facility] Comment on above: Performed By: #### L AB15, LAB99, LAB20 ####Composite Assembler: KEMAR MOMINHARRISON ([id number])[facility] ([facility])[address] Bilirubin [Mass/Vol] 0.4 mg/dL Normal <1.2 [facility] Comment on above: Performed By: #### L AB15, LAB99, LAB20 ####Composite Assembler: KEMAR MOMINHARRISON ([id number])[facility] ([facility])[address] [place] [address] Bilirubin.indirect [Mass/Vol] 0.2 mg/dL Normal <0.5 [facility] Comment on above: Performed By: #### L AB15, LAB99, LAB20 ####Composite Assembler: KEMAR MMOINHARRISON ([id number])[facility] ([facility])[address] [place] [address] Protein [Mass/Vol] 6.8 g/dL Normal 6.4-8.3 [facility] Comment on above: Result Comment: Seru m protein values are higher than plasma values. Samples from recumbent persons are lower by up to 0.5 g/dL as compared to ambulatory persons. After 60 years values are lower by up to 0.2 g/dL. Performed By: #### L AB15, LAB99, LAB20 ####Composite Assembler: KEMAR MOMINHARRISON ([id number])[facility] ([facility])[address] [place] [address] Hepatic function 2000 panelo n 11-12-2024 Albumin [Mass/Vol] 3.3 g/dL Low 3.5 - 5.0 g/dL [facility] ALP [Catalytic activity/Vol] 143 U/L [facility] ALT [Catalytic activity/Vol] 65 U/L [facility] AST [Catalytic activity/Vol] 42 U/L High NINF - 34 U/L [facility] Bilirubin [Mass/Vol] 0.4 mg/dL NINF - 1.2 mg/dL [facility] Bilirubin.conjugated [Mass/Vol] 0.2 mg/dL [facility] 0.[facility] mg/dL [facility] Interpretation and review of laboratory results Abnormal [facility] Protein [Mass/Vol] 6.8 g/dL 6.4 - 8.3 g/dL [facility] Comment on above: Serum protein values are higher than plasma values. Samples from recumbent persons are lower by up to 0.5 g/dL as compared to ambulatory persons. After 60 years values are lower by up to 0.2 g/dL. LIPASEon 11-12-2024 Lipase [Catalytic activity/Vol] 26 U/L Normal <55 [facility] Comment on above: Performed By: #### L AB15, LAB99, LAB20 ####Composite Assembler: KEMAR ABEBE ([id number])[facility] ([facility])[address] [place] [address] Laboratory - Chemistry and C hemistry - challengeon 11-12-2024 Lipase [Catalytic activity/Vol] 26 U/L NINF - 55 U/L [facility] Lipase [Catalytic activity/V ol]on 11-12-2024 Interpretation and review of laboratory results Normal [facility] No Panel Informationon 11-12 [facility] Urine Cultureon 11-11-2024 URC UNKNOWN METHOD OF COLLECTION Mixed Gram Pos Gram Neg Org [place] Count 11,000-25,000 MIXC Mixed contaminants. Submit a new specimen if indicated. Normal [facility] Comment on above: Performed By: #### M 100.2200, L400.0001 #### [facility] [address] [place], [address] Bilirubin Test strip Ql (U)O rdered By: Jared Guzman on 11-10-2024 Bilirubin Ql (U) Negative Negative [facility] Epithelial cells.squamous LM Ql (Urine sed)Ordered By: Jared Guzman on 11-10-2024 Epithelial cells.squamous LM.HPF (Urine sed) [#/Area] 0 /[HPF] 5-10 [facility] Glucose Ql (U)Ordered By: Marcel Piper on 11-10-2024 Urine Glucose (UA) Normal mg/dl Normal [facility] Ketones Test strip Ql (U)Ord ered By: Jared Guzman on 11-10-2024 Ketones Ql (U) Negative Negative [facility] Microscopic analysis of urin e for red blood cells (RBC)Ordered By: Jared Guzman on 11-10-2024 Urine RBC 10-25 SEEN /hpf 0-5 [facility] Mucus LM Ql (Urine sed)Order ed By: Jared Guzman on 11-10-2024 Mucus Ql (Urine sed) 0 SEEN /hpf [facility] Nitrite Test strip Ql (U)Ord ered By: Jared Guzman on 11-10-2024 Nitrite Ql (U) Negative Negative [facility] Progress Noteon 11-10-2024 Progress Note Normal [facility] Protein Test strip Ql (U)Ord ered By: Jared Guzman on 11-10-2024 Protein Ql (U) 500 mg/dl High Negative [facility] Urinalysis, Completeon 11-10 EPI,SQUAMOUS 0-5 SEEN Normal 5-10 [facility] Comment on above: Order Comment: UNKNO WN METHOD OF COLLECTION CLEAN CATCH Performed By: #### M 100.2200, L400.0001 #### [facility] [address] [place], [address] RBC 10-25 SEEN Normal 0-5 [facility] Comment on above: Order Comment: UNKNO WN METHOD OF COLLECTION CLEAN CATCH Performed By: #### M 100.2200, L400.0001 #### [facility] [address] [place], [address] BACTERIA 3+ /hpf Normal None Seen [facility] Comment on above: Order Comment: UNKNO WN METHOD OF COLLECTION CLEAN CATCH Performed By: #### M 100.2200, L400.0001 #### [facility] [address] [place], [address] WBC 10-25 SEEN Normal 0-5 [facility] Comment on above: Order Comment: UNKNO WN METHOD OF COLLECTION CLEAN CATCH Performed By: #### M 100.2200, L400.0001 #### [facility] [address] [place], [address] Mucus Ql (Urine sed) 0 SEEN Normal [facility] Comment on above: Order Comment: UNKNO WN METHOD OF COLLECTION CLEAN CATCH Performed By: #### M 100.2200, L400.0001 #### [facility] [address] [place], [address] Urine blood detectionOrdered By: Jared Guzman on 11-10-2024 Urine Occult Blood 250 /ul High Negative [facility] Urine clarityOrdered By: Mike Guzman on 11-10-2024 Clarity (U) Cloudy Clear [facility] Urine color determinationOrd ered By: Jared Guzman on 11-10-2024 Color (U) Yellow Yellow [facility] Urine cultureOrdered By: Mike Guzman on 11-10-2024 Bacteria identified Cx Nom (U) Mixed Gram Pos & Gram Neg Org Abnormal [facility] Bacteria identified Cx Nom (U) Mixed Gram Pos & Gram Neg Org Abnormal [facility] Urine leukocyte esterase det ection by dipstickOrdered By: Jared Guzman on 11-10-2024 Leukocyte esterase Test strip Ql (U) 100 /ul High Negative [facility] Urine pHOrdered By: Jared moreno on 11-10-2024 pH (U) 6.0 [pH] 5.0 - 8.0 [facility] Urine sediment bacteria coun t by microscopy (number/high power field)Ordered By: Jared Guzman on 11-10-2024 Bacteria LM.HPF (Urine sed) [#/Area] 3 /[HPF] None Seen [facility] Urine specific gravity measu rementOrdered By: Jared Guzman on 11-10-2024 Specific gravity (U) [Rel density] 1.025 1.002-1.030 [facility] Urobilinogen Ql (U)Ordered B y: Jared Guzman on 11-10-2024 Urine Urobilinogen Normal mg/dl Normal [facility] White blood cell countOrdere d By: Jared Guzman on 11-10-2024 Urine WBC 10-25 SEEN /hpf 0-5 [facility] 36on 11-07-2024 36 Released msg to pt's nurse Ninfa. She verbalized understanding Normal [facility] 36 Normal [facility] 36 Patient's BGL Normal [facility] 36on 10-30-2024 36 Released message to nurse 36 BG log reviewed. No changes to current meds. Send log as needed; otherwise, has appt 11/27 with Ana Maria. Please remind SNF to send BGL and MAR to visit. Thank you! Normal [facility] 36 Patient's BGL Normal [facility] Albumin to globulin ratioOrd ered By: Jared Guzman on 10-30-2024 Albumin/Globulin [Mass ratio] 0.8 {ratio} Low 0.9-2.4 [facility] Bilirubin, totalOrdered By: Jared Guzman on 10-30-2024 Bilirubin [Mass/Vol] 0.40 mg/dL 0.20-1.00 [facility] Comment on above: For patients on eltr ombopag therapy, use of Dimension Ovid TBIL is not recommended. Blood urea nitrogen (BUN)/cr eatinine ratioOrdered By: Jared Guzman on 10-30-2024 Urea nitrogen/Creatinine [Mass ratio] 20.3 mg/mg High 10-20 [facility] CBC-Complete Blood Cnt No Di ffon 10-30-2024 Erythrocyte distribution width (RBC) [Ratio] 14.8 % High 11.6-14.6 [facility] Comment on above: Order Comment: 103-1 Performed By: #### L 100.0500, L500.4050 #### [facility] [address] [place], [address] Hematocrit (Bld) [Volume fraction] 32.9 % Low 37-47 [facility] Comment on above: Order Comment: 103-1 Performed By: #### L 100.0500, L500.4050 #### [facility] [address] [place], [address] Hemoglobin (Bld) [Mass/Vol] 10.2 g/dL Low 12.0-15.0 [facility] Comment on above: Order Comment: 103-1 Performed By: #### L 100.0500, L500.4050 #### [facility] [address] [place], [address] MCH (RBC) [Entitic mass] 27.1 pg Normal 27.0-32.0 [facility] Comment on above: Order Comment: 103-1 Performed By: #### L 100.0500, L500.4050 #### [facility] [address] [place], [address] MCHC (RBC) [Mass/Vol] 31.0 g/dL Low 32-36 [facility] Comment on above: Order Comment: 103-1 Performed By: #### L 100.0500, L500.4050 #### [facility] [address] [place], [address] MCV (RBC) [Entitic vol] 87.3 fL Normal 81-99 [facility] Comment on above: Order Comment: 103-1 Performed By: #### L 100.0500, L500.4050 #### [facility] [address] [place], [address] Platelet mean volume (Bld) [Entitic vol] 9.7 fL Normal 6.2-12.0 [facility] Comment on above: Order Comment: 103-1 Performed By: #### L 100.0500, L500.4050 #### [facility] [address] [place], [address] Platelets (Bld) [#/Vol] 387 10*3/uL Normal 150-450 [facility] Comment on above: Order Comment: 103-1 Performed By: #### L 100.0500, L500.4050 #### [facility] [address] [place], [address] RBC (Bld) [#/Vol] 3.77 10*6/uL Low 4.2-5.4 [facility] Comment on above: Order Comment: 103-1 Performed By: #### L 100.0500, L500.4050 #### [facility] [address] [place], [address] RDW SD 46.8 fl High 35.1-43.9 [facility] Comment on above: Order Comment: 103-1 Performed By: #### L 100.0500, L500.4050 #### [facility] [address] [place], [address] WBC (Bld) [#/Vol] 9.0 10*3/uL Normal 4.4-11.0 [facility] Comment on above: Order Comment: 103-1 Performed By: #### L 100.0500, L500.4050 #### [facility] [address] [place], [address] Carbon dioxide measurementOr dered By: Jared Guzman on 10-30-2024 CO2 [Moles/Vol] 26.0 mmol/L 21.0-32.0 [facility] Chloride measurementOrdered By: Jared Guzman on 10-30-2024 Chloride [Moles/Vol] 108 mmol/L High 98-107 [facility] Comprehensive Metabolic Prof ilon 10-30-2024 Albumin [Mass/Vol] 2.8 g/dL Low 3.2-5.0 [facility] Comment on above: Order Comment: 103-1 Performed By: #### L 100.0500, L500.4050 #### [facility] [address] [place], [address] Albumin/Globulin [Mass ratio] 0.8 {ratio} Low 0.9-2.4 [facility] Comment on above: Order Comment: 103-1 Performed By: #### L 100.0500, L500.4050 #### [facility] [address] [place], [address] ALK P 113 U/L Normal 45-117 [facility] Comment on above: Order Comment: 103-1 Performed By: #### L 100.0500, L500.4050 #### [facility] [address] [place], [address] ALT [Catalytic activity/Vol] 25 U/L Normal 13-56 [facility] Comment on above: Order Comment: 103-1 Performed By: #### L 100.0500, L500.4050 #### [facility] [address] [place], [address] AST [Catalytic activity/Vol] 18 U/L Normal 15-37 [facility] Comment on above: Order Comment: 103-1 Performed By: #### L 100.0500, L500.4050 #### [facility] [address] [place], [address] Bilirubin [Mass/Vol] 0.40 mg/dL Normal 0.20-1.00 [facility] Comment on above: Order Comment: 103-1 Result Comment: For patients on eltrombopag therapy, use of Dimension Ovid TBIL is not recommended. Performed By: #### L 100.0500, L500.4050 #### [facility] [address] [place], [address] BUN/CRE 20.3 RATIO High 10-20 [facility] Comment on above: Order Comment: 103-1 Performed By: #### L 100.0500, L500.4050 #### [facility] [address] [place], [address] CA,Total 8.8 mg/dL Normal 8.5-10.1 [facility] Comment on above: Order Comment: 103-1 Performed By: #### L 100.0500, L500.4050 #### [facility] [address] [place], [address] Chloride [Moles/Vol] 108 mmol/L High 98-107 [facility] Comment on above: Order Comment: 103- Performed By: #### L 100.0500, L500.4050 #### [facility] [address] [place], [address] CO2 [Moles/Vol] 26.0 mmol/L Normal 21.0-32.0 [facility] Comment on above: Order Comment: 103- Performed By: #### L 100.0500, L500.4050 #### [facility] [address] [place], [address] Creatinine [Mass/Vol] 0.69 mg/dL Normal 0.55-1.02 [facility] Comment on above: Order Comment: 103-1 Result Comment: The validity of the calculated GFR GFRAA in patients over 70 years has not been determined. Clinical correlation is essential. Performed By: #### L 100.0500, L500.4050 #### [facility] [address] [place], [address] EST GFR - AA 112 mL/min Normal >60 [facility] Comment on above: Order Comment: 103-1 Result Comment: Afri can [place] GFR Calc Performed By: #### L 100.0500, L500.4050 #### [facility] [address] [place], [address] GAP 5 Normal 5-15 [facility] Comment on above: Order Comment: 103-1 Performed By: #### L 100.0500, L500.4050 #### [facility] [address] [place], [address] GFR/1.73 sq M.predicted among non-blacks MDRD (S/P/Bld) [Vol rate/Area] 93 mL/min/{1.73_m2} Normal >60 [facility] Comment on above: Order Comment: 103-1 Result Comment: Non- GFR Calc Performed By: #### L 100.0500, L500.4050 #### [facility] [address] [place], [address] Globulin (S) [Mass/Vol] 3.7 g/dL Normal 2.2-4.2 [facility] Comment on above: Order Comment: 103-1 Performed By: #### L 100.0500, L500.4050 #### [facility] [address] [place], [address] Glucose [Mass/Vol] 105 mg/dL Normal 74-106 [facility] Comment on above: Order Comment: - Result Comment: Fast ing Glucose result from 100 to 125 mg/dL suggests IMPAIRED HOMEOSTASIS per A.D.A. criteria. Performed By: #### L 100.0500, L500.4050 #### [facility] [address] [place], [address] Potassium [Moles/Vol] 4.4 mmol/L Normal 3.5-5.1 [facility] Comment on above: Order Comment: 103-1 Performed By: #### L 100.0500, L500.4050 #### [facility] [address] [place], [address] Sodium [Moles/Vol] 139 mmol/L Normal 136-145 [facility] Comment on above: Order Comment: 103-1 Performed By: #### L 100.0500, L500.4050 #### [facility] [address] [place], [address] T PROT 6.5 g/dL Normal 6.4-8.2 [facility] Comment on above: Order Comment: 103-1 Performed By: #### L 100.0500, L500.4050 #### [facility] [address] [place], [address] Urea nitrogen [Mass/Vol] 14 mg/dL Normal 7-18 [facility] Comment on above: Order Comment: 103-1 Performed By: #### L 100.0500, L500.4050 #### [facility] [address] [place], [address] Erythrocyte distribution wid th ratioOrdered By: Jared Guzman on 10-30-2024 Erythrocyte distribution width (RBC) [Ratio] 14.8 % High 11.6-14.6 [facility] Erythrocyte distribution wid th standard deviationOrdered By: Jared Guzman on 10-30-2024 Erythrocyte distribution width (RBC) [Entitic vol] 46.8 fL High 35.1-43.9 [facility] Estimated glomerular filtrat ion rate (GFR) AmericanOrdered By: Jared Guzman on 10-30-2024 Estimated GFR (MDRD) Amer 112 mL/min >60 [facility] Comment on above: GFR Calc Glomerular filtration rate ( GFR) estimationOrdered By: Jared Guzman on 10-30-2024 Estimated GFR (MDRD) Non-Af Amer 93 mL/min >60 [facility] Comment on above: Non- GFR Calc Glucose measurementOrdered B y: Jared Guzman on 10-30-2024 Glucose [Mass/Vol] 105 mg/dL 74-106 [facility] Comment on above: Fasting Glucose resu lt from 100 to 125 mg/dL suggests IMPAIRED HOMEOSTASIS per A.D.A. criteria. Hematocrit Auto (Bld) [Volum e fraction]Ordered By: Jared Guzman on 10-30-2024 Hematocrit (Bld) [Volume fraction] 32.9 % Low 37-47 [facility] Hemoglobin measurementOrdere d By: Jared Guzman on 10-30-2024 Hemoglobin (Bld) [Mass/Vol] 10.2 g/dL Low 12.0-15.0 [facility] - Chemistry and C hemistry - challengeOrdered By: Jared Guzman on 10-30-2024 AST [Catalytic activity/Vol] 18 U/L 15-37 [facility] MCV (mean corpuscular volume ) determinationOrdered By: Jared Guzman on 10-30-2024 MCV (RBC) [Entitic vol] 87.3 fL 81-99 [facility] Mean corpuscular hemoglobin (MCH) determinationOrdered By: Jared Guzman on 10-30-2024 MCH (RBC) [Entitic mass] 27.1 pg 27.0-32.0 [facility] Mean corpuscular hemoglobin concentration (MCHC) determinationOrdered By: Jared Guzman on 10-30-2024 MCHC (RBC) [Mass/Vol] 31.0 g/dL Low 32-36 [facility] Mean platelet volume determi nationOrdered By: Jared Guzman on 10-30-2024 Platelet mean volume (Bld) [Entitic vol] 9.7 fL 6.2-12.0 [facility] Platelet countOrdered By: Marcel Piper on 10-30-2024 Platelets (Bld) [#/Vol] 387 10*3/uL 150-450 [facility] Potassium measurementOrdered By: Jared Guzman on 10-30-2024 Potassium [Moles/Vol] 4.4 mmol/L 3.5-5.1 [facility] RBC Auto (Bld) [#/Vol]Ordere d By: Jared Guzman on 10-30-2024 RBC (Bld) [#/Vol] 3.77 10*6/uL Low 4.2-5.4 [facility] Serum anion gap measurementO rdered By: Jared Guzman on 10-30-2024 Anion gap [Moles/Vol] 5 mmol/L 5-15 [facility] Serum globulin measurementOr dered By: Jared Guzman on 10-30-2024 Globulin (S) [Mass/Vol] 3.7 g/dL 2.2-4.2 [facility] Serum or plasma alanine jones otransferase (ALT) measurementOrdered By: Jared Guzman on 10-30-2024 ALT [Catalytic activity/Vol] 25 U/L 13-56 [facility] Serum or plasma albumin mauricio urement (mass/volume)Ordered By: Jared Guzman on 10-30-2024 Albumin [Mass/Vol] 2.8 g/dL Low 3.2-5.0 [facility] Serum or plasma alkaline abbey sphatase measurementOrdered By: Jared Guzman on 10-30-2024 ALP [Catalytic activity/Vol] 113 U/L 45-117 [facility] Serum or plasma calcium mauricio urement (mass/volume)Ordered By: Jared Guzman on 10-30-2024 Calcium [Mass/Vol] 8.8 mg/dL 8.5-10.1 [facility] Serum or plasma creatinine m easurement (mass/volume)Ordered By: Jared Guzman on 10-30-2024 Creatinine [Mass/Vol] 0.69 mg/dL 0.55-1.02 [facility] Comment on above: The validity of the calculated GFR & GFRAA in patients over 70 years has not been determined. Clinical correlation is essential. Serum or plasma urea nitroge n measurement (mass/volume)Ordered By: Jared Guzman on 10-30-2024 Urea nitrogen [Mass/Vol] 14 mg/dL 7-18 [facility] Sodium levelOrdered By: Main Guzman on 10-30-2024 Sodium [Moles/Vol] 139 mmol/L 136-145 [facility] Total proteinOrdered By: Mike Guzman on 10-30-2024 Protein [Mass/Vol] 6.5 g/dL 6.4-8.2 [facility] White blood cell (WBC) count Ordered By: Jared Guzman on 10-30-2024 WBC (Bld) [#/Vol] 9.0 10*3/uL 4.4-11.0 [facility] ECG 12-LEADon 2024 ECG 12-LEAD IMPRESSION: Sinus rhythm Left bundle branch block Compared to ECG 10/18/24 No significant change Electronically Signed On 2024 00:25:40 EST by Fermin Melchor Normal [facility] 36on 10-24-2024 36 Shayy called back w josefina scheduled an appointment with Ana Maria on 11/27/24 and another one on 03/27/25 with Thalia. Normal [facility] 36 Normal [facility] CBC (HEMOGRAM)on 10-24-2024 Erythrocyte distribution width (RBC) [Ratio] 13.8 % Normal 11.5-15.0 [facility] Comment on above: Performed By: #### L [id number] ####Composite Assembler: KEMAR MOMINHiginioSAAD ([id number])NATI WADEKATIA (SBHLAB)[address] [place] [address] Hematocrit (Bld) [Volume fraction] 39.3 % Normal Male: 40.0-52.0 ; Female: 35.0-47.0 [facility] Comment on above: Performed By: #### L [id number] ####Composite Assembler: KEMAR ANDRAE ([id number])[facility] HOSPITALWarren WADECLOV[facility]OSPITALEmmie (SBAB)[address] [place] [address] Hemoglobin (Bld) [Mass/Vol] 12.3 g/dL Normal 11.7-18.0 [facility] Comment on above: Performed By: #### L [id number] ####Composite Assembler: KEMAR ANDRAE ([id number])[facility] HOSPITALWarren [facility] ([facility])[address] [place] [address] MCH (RBC) [Entitic mass] 27.0 pg Normal 26.0-34.0 [facility] Comment on above: Performed By: #### L [id number] ####Composite Assembler: KEMAR MOMINHiginioSAAD ([id number])[facility] HOSPITALWarren WADECLOV[facility]OSPITALEmmie ([facility])[address] [place] [address] MCHC 31.3 % Normal 30.5-36.0 [facility] Comment on above: Performed By: #### L [id number] ####Composite Assembler: KEMAR LUDWIGSAAD ([id number])[facility] HOSPITALWarren [facility]ADECL[facility]ITALEmmie ([facility])[address] [place] [address] MCV (RBC) [Entitic vol] 86.2 fL Normal 77.0-99.0 S [facility] Comment on above: Performed By: #### L [id number] ####Composite Assembler: KEMAR LUDWIGSAAD ([id number])[facility]OSPITALWarren [facility]ADECL[facility]ITALEmmie ([facility])[address] [place] [address] Platelet mean volume (Bld) [Entitic vol] 9.7 fL Normal 9.0-12.7 [facility] Comment on above: Performed By: #### L [id number] ####Composite Assembler: KEMAR ABEBE ([id number])[facility] (SBHLAB)[address] Platelets (Bld) [#/Vol] 465 10*3/uL High 140-440 [facility] Comment on above: Performed By: #### L [id number] ####Composite Assembler: KEMAR ABEBE ([id number])[facility] (SBAB)[address] RBC (Bld) [#/Vol] 4.56 10*6/uL Normal Male: 4.40-5.90; Female: 3.80-5.20 [facility] Comment on above: Performed By: #### L [id number] ####Composite Assembler: KEMAR ABEBE ([id number])[facility] ([facility])[address] [place] [address] WBC (Bld) [#/Vol] 9.8 10*3/uL Normal 3.6-10.7 [facility] Comment on above: Performed By: #### L [id number] ####Composite Assembler: KEMAR ABEBE ([id number])[facility] ([facility])[address] [place] [address] CBC panel Auto (Bld)Ordered By: Justin Mao on 10-24-2024 Erythrocyte distribution width (RBC) [Ratio] 13.8 % 11.5 - 15.0 % [facility] Hematocrit (Bld) [Volume fraction] 39.3 % Male: 40.0-52.0 ; Female: 35.0-47.0 [facility] Hemoglobin (Bld) [Mass/Vol] 12.3 g/dL 11.7 - 18.0 g/dL [facility] Interpretation and review of laboratory results Abnormal [facility] MCH (RBC) [Entitic mass] 27 pg 26.0 - 34.0 pg [facility] MCHC (RBC) [Mass/Vol] 31.3 % 30.5 - 36.0 % [facility] MCV (RBC) [Entitic vol] 86.2 fL 77.0 - 99.0 fL [facility] Platelet mean volume (Bld) [Entitic vol] 9.7 fL 9.0 - 12.7 fL [facility] Platelets (Bld) [#/Vol] 465 10*3/uL High 140 - 440 10*3/uL [facility] RBC (Bld) [#/Vol] 4.56 10*6/uL Male: 4.40-5.90; Female: 3.80-5.20 [facility] WBC (Bld) [#/Vol] 9.8 10*3/uL 3.6 - 10.7 10*3/uL [facility] COMPLETE URINALYSISon 2023 BACTERIA (#/HPF) IN URINE Negative Normal Negative [facility] Comment on above: Performed By: #### L [id number] ####Composite Assembler: KEMAR ABEBE ([id number])[facility] ([facility])[address] [place] [address] BILIRUBIN, TOTAL PRESENCE IN URINE Negative Normal Negative [facility] Comment on above: Performed By: #### L [id number] ####Composite Assembler: KEMAR ABEBE ([id number])[facility] ([facility])[address] [place] [address] Clarity (U) Clear Normal Clear [facility] Comment on above: Performed By: #### L [id number] ####Composite Assembler: KEMAR ABEBE ([id number])[facility] ([facility])[address] [place] [address] Color (U) Light Yellow Normal Lt. Yellow [facility] Comment on above: Performed By: #### L [id number] ####Composite Assembler: KEMAR ABEBE ([id number])[facility] ([facility])[address] [place] [address] GLUCOSE (MG/DL) IN URINE Normal Normal Normal (<70) [facility] Comment on above: Performed By: #### L [id number] ####Composite Assembler: KEMAR ABEBE ([id number])[facility] ([facility])[address] HEMOGLOBIN PRESENCE IN URINE Negative Normal Negative [facility] Comment on above: Performed By: #### L [id number] ####Composite Assembler: KEMAR ABEBE ([id number])[facility] ([facility])[address] Ketones Ql (U) Negative Normal Negative [facility] Comment on above: Performed By: #### L [id number] ####Composite Assembler: KEMAR ABEBE ([id number])[facility] ([facility])[address] LEUKOCYTE ESTERASE PRESENCE IN URINE BY TEST STRIP Negative Normal Negative [facility] Comment on above: Performed By: #### L [id number] ####Composite Assembler: KEMAR ABEBE ([id number])[facility] ([facility])[address] MUCUS (#/LPF) IN URINE SEDIMENT Few Normal Negative [facility] Comment on above: Performed By: #### L [id number] ####Composite Assembler: KEMAR ABEBE ([id number])[facility] (HLAB)[address] NITRITE PRESENCE IN URINE Negative Normal Negative [facility] Comment on above: Performed By: #### L [id number] ####Composite Assembler: KEMAR ABEBE ([id number])[facility] (HLAB)[address] NON-SQUAMOUS EPITHELIAL (#/HPF) IN URINE 3-5 Abnormal Negative [facility] Comment on above: Performed By: #### L [id number] ####Composite Assembler: KEMAR ABEBE ([id number])[facility] (HLAB)[address] pH (U) 7.0 [pH] Normal 5.0-8.0 [facility] Comment on above: Performed By: #### L [id number] ####Composite Assembler: KEMAR ABEBE ([id number])[facility] (SB[facility])[address] Protein (U) [Mass/Vol] 70 mg/dL Abnormal Negative [facility] Comment on above: Performed By: #### L [id number] ####Composite Assembler: KEMAR ABEBE ([id number])[facility] [place] ([facility])[address] [place] [address] [place] RBC (#/HPF) IN URINE SEDIMENT 3-5 Abnormal 0-2 [facility] Comment on above: Performed By: #### L [id number] ####Composite Assembler: KEMAR ABEBE ([id number])[facility] [place] ([facility])[address] Specific gravity (U) [Rel density] 1.011 Normal 1.005-1.030 [facility] Comment on above: Performed By: #### L [id number] ####Composite Assembler: KEMAR ABEBE ([id number])[facility] [place] ([facility])[address] SQUAMOUS EPITHELIAL CELLS (#/HPF) IN URINE SEDIMENT 0-2 Normal 3-5 [facility] Comment on above: Performed By: #### L [id number] ####Composite Assembler: KEMAR ABEBE ([id number])[facility] [place] ([facility])[address] UROBILINOGEN (MG/DL) IN URINE Normal Normal Normal (0-1) [facility] Comment on above: Performed By: #### L [id number] ####Composite Assembler: KEMAR ABEBE ([id number])[facility] [place] ([facility])[address] [place] [address] [place] WBC (LEUKOCYTE) (#/HPF) IN URINE SEDIMENT 6-10 Abnormal 0-5 [facility] Comment on above: Performed By: #### L [id number] ####Composite Assembler: KEMAR ABEBE ([id number])[facility] [place] ([facility])[address] COMPREHENSIVE METABOLIC PANE Gigi 10-24-2024 Albumin [Mass/Vol] 3.0 g/dL Low 3.5-5.0 [facility] Comment on above: Performed By: #### L [id number], [id number] ####Composite Assembler: KEMAR ABEBE ([id number])[facility] [place] ([facility])[address] ALP [Catalytic activity/Vol] 117 U/L Normal [facility] Comment on above: Performed By: #### L [id number], LAB17 ####Composite Assembler: KEMAR ABEBE ([id number])[facility] [place] ([facility])[address] ALT [Catalytic activity/Vol] 22 U/L Normal [facility] Comment on above: Performed By: #### L [id number], LAB17 ####Composite Assembler: KEMAR ABEBE ([id number])[facility] [place] ([facility])[address] Anion gap [Moles/Vol] 10 mmol/L Normal 3-13 [facility] Comment on above: Performed By: #### L [id number], LAB17 ####Composite Assembler: KEMAR ABEBE ([id number])[facility] [place] ([facility])[address] AST [Catalytic activity/Vol] 28 U/L Normal <34 [facility] Comment on above: Performed By: #### L [id number], LAB17 ####Composite Assembler: KEMAR ABEBE ([id number])[facility] [place] ([facility])[address] Bilirubin [Mass/Vol] 0.4 mg/dL Normal <1.2 [facility] Comment on above: Performed By: #### L [id number], LAB17 ####Composite Assembler: KEMAR ABEBE ([id number])[facility] [place] ([facility])[address] [place] [address] [place] Calcium [Mass/Vol] 9.3 mg/dL Normal 8.4-10.2 [facility] [facility] Comment on above: Performed By: #### L [id number], [id number] ####Composite Assembler: KEMAR ABEBE ([id number])[facility]ITAL[facility] (SB[facility])[address] [place] [address] [place] Chloride [Moles/Vol] 100 mmol/L Normal 98-107 [facility] Comment on above: Performed By: #### L [id number], [id number] ####Composite Assembler: KEMAR ABEBE ([id number])[facility] (SBHLAB)[address] CO2 [Moles/Vol] 27 mmol/L Normal 22-29 [facility] Comment on above: Performed By: #### L [id number], [id number] ####Composite Assembler: KEMAR ABEBE ([id number])[facility] (SBHLAB)[address] Creatinine [Mass/Vol] 0.84 mg/dL Normal [facility] Comment on above: Performed By: #### L [id number], [id number] ####Composite Assembler: KEMAR ABEBE ([id number])[facility] (SBHLAB)[address] [place] [address] [place] GLOMERULAR FILTRATION RATE ML/MIN/1.73 SQ M.PREDICTED 81.2 mL/min/1.73m*2 Normal >60.0 [facility] Comment on above: Result Comment: Calc ulation based on the Chronic Kidney Disease Epidemiology Collaboration (CKD-EPI) equation refit without adjustment for race Performed By: #### L [id number], [id number] ####Composite Assembler: KEMAR ABEBE ([id number])[facility] (SBHLAB)[address] [place] [address] [place] Glucose [Mass/Vol] 207 mg/dL High 74-100 [facility] Comment on above: Performed By: #### L [id number], [id number] ####Composite Assembler: KEMAR ABEBE ([id number])[facility] (SBHLAB)[address] Potassium [Moles/Vol] 4.6 mmol/L Normal 3.5-5.1 [facility] Comment on above: Result Comment: [facility] potassium values may be up to 0.5 mmol/L lower than serum values. Performed By: #### L [id number], [id number] ####Composite Assembler: KEMAR ABEBE ([id number])[facility] (SBHLAB)[address] Protein [Mass/Vol] 7.0 g/dL Normal 6.4-8.3 [facility] Comment on above: Performed By: #### L [id number], [id number] ####Composite Assembler: KEMAR ABEBE ([id number])[facility] (SBHLAB)[address] Sodium [Moles/Vol] 137 mmol/L Normal 136-145 [facility] Comment on above: Performed By: #### L [id number], [id number] ####Composite Assembler: KEMAR ABEBE ([id number])[facility] (SBHLAB)[address] Urea nitrogen [Mass/Vol] 15 mg/dL Normal 9-23 [facility] Comment on above: Performed By: #### L [id number], [id number] ####Composite Assembler: KEMAR ABEBE ([id number])[facility] (SBHLAB)[address] Comprehensive metabolic 1998 panelOrdered By: Hans Watson on 10-24-2024 Albumin [Mass/Vol] 3 g/dL Low 3.5 - 5.0 g/dL [facility] ALP [Catalytic activity/Vol] 117 U/L [facility] ALT [Catalytic activity/Vol] 22 U/L [facility] Anion gap [Moles/Vol] 10 mmol/L 3 - 13 mmol/L [facility] AST [Catalytic activity/Vol] 28 U/L NINF - 34 U/L [facility] Bilirubin [Mass/Vol] 0.4 mg/dL NINF - 1.2 mg/dL [facility] Calcium [Mass/Vol] 9.3 mg/dL 8.4 - 10. 2 mg/dL [facility] Chloride [Moles/Vol] 100 mmol/L 98 - 10 7 mmol/L [facility] CO2 [Moles/Vol] 27 mmol/L 22 - 29 mmol/L [facility] Creatinine [Mass/Vol] 0.84 mg/dL [facility] GFR/1.73 sq M.predicted (S/P/Bld) [Vol rate/Area] 81.2 mL/min - PINF [facility] Comment on above: Calculation based on the Chronic Kidney Disease Epidemiology Collaboration (CKD-EPI) equation refit without adjustment for race Glucose [Mass/Vol] 207 mg/dL High 74 - 100 mg/dL [facility] Interpretation and review of laboratory results Abnormal [facility] Potassium [Moles/Vol] 4.6 mmol/L 3.5 - 5.1 mmol/L [facility] Comment on above: Plasma potassium helen ues may be up to 0.5 mmol/L lower than serum values. Protein [Mass/Vol] 7 g/dL 6.4 - 8.3 g/dL [facility] Sodium [Moles/Vol] 137 mmol/L 136 - 145 mmol/L [facility] Urea nitrogen [Mass/Vol] 15 mg/dL 9 - 23 mg/dL [facility] ED Nursing Noteon 10-24-2024 ED Nursing Note Pt placed on bedpan, urine sample collected and sent to lab. Normal [facility] ED Nursing Note Pt provided with sandwich and pop, ok per Dr Mixon Normal [facility] ED Nursing Note Normal [facility] ED Nursing Note Pt arrives by Roni Perez MS for blood in urine and change in mental status. Pt has chronic lewis and has blood present. BP elevated, BG 154 (low per SNF because pt is normally in 300 range). Pt is DNR-CCA. Normal [facility] ED Provider Noteon ED Provider Note Normal [facility] HIGH SENSITIVITY TROPONIN, S ERIAL BASELINEon 10-24-2024 TROPONIN HIGH SENSITIVITY BASELINE <3 Normal [facility] Comment on above: Performed By: #### L [id number], [id number] ####Composite Assembler: KEMAR ABEBE ([id number])[facility]ITALWar[facility] [place] (SBHLAB)[address] [place] [address] LACTIC ACID WITH REFLEXon Lactate [Moles/Vol] 1.5 mmol/L Normal 0.5-2.2 [facility] Comment on above: Performed By: #### L [id number] ####Composite Assembler: KEMAR ABEBE ([id number])[facility]ITALWar[facility] [place] (SBHLAB)[address] [place] [address] Laboratory - Chemistry and C hemistry - challengeon 10-24-2024 Lactate [Moles/Vol] 1.5 mmol/L 0.5 - 2. 2 mmol/L [facility] Glucose [Mass/Vol] 175 mg/dL High 70 - 100 mg/dL [facility] No Panel Informationon 10-24 Troponin HS, Serial Baseline ng/L ng/L [facility] Interpretation and review of laboratory results Normal [facility] Interpretation and review of laboratory results Abnormal [facility] Performed by: [facility], [address] [place] [address] CLIA ID: [id number] [facility] Urinalysis complete panel (U )on 10-24-2024 Bacteria LM.HPF (Urine sed) [#/Area] Negative Negative /HPF [facility] Bilirubin Ql (U) Negative Negative mg/dL [facility] Clarity (U) Clear Clear [facility] Color (U) Light Yellow Lt. Yellow [facility] Epithelial cells.squamous LM.HPF (Urine sed) [#/Area] 0-2 [facility] Glucose Ql (U) Normal Normal (<70) mg/dL [facility] Hemoglobin Ql (U) Negative Negative mg/dL [facility] Interpretation and review of laboratory results Abnormal [facility] Ketones (U) [Mass/Vol] Negative Negat bernard mg/dL [facility] Leukocyte esterase Test strip Ql (U) Negative Negative Kat/uL [facility] Mucus LM.HPF (Urine sed) [#/Area] Few Negative /LPF [facility] Nitrite Ql (U) Negative Negative [facility] Non-Squamous Epithalial Cells, Urine 3-5 Abnormal Negative /HPF [facility] pH (U) 7.0 [pH] 5.0 - 8.0 pH [facility] Protein (U) [Mass/Vol] 70 mg/dL Abnormal Negative [facility] RBC LM.HPF (Urine sed) [#/Area] 3-5 Abnormal [facility] Specific gravity (U) [Rel density] 1.011 1.005 - 1.030 [facility] Urobilinogen (U) [Mass/Vol] Normal Normal (0-1) mg/dL [facility] WBC LM.HPF (Urine sed) [#/Area] 6-10 Abnormal [facility] [id number] 10-23-2024 [id number] Normal [facility] [id number] Discharge med list transmitted to return back to [facility] via [facility] per TCC request. Normal [facility] [id number] Normal [facility] [id number] DC orders in and sig nazario by Dr. Thomas. CORPORATE BANKING OFFICER set up transport. PRINTED CIRCUIT DESIGNER tasked in [employer] to send DC info [facility] . DC back to [facility] in stable condition. . Normal [facility] CBC W Auto Differential pane l (Bld)on 10-23-2024 Basophils (Bld) [#/Vol] 0.1 10*3/uL 0.0 - 0.2 10*3/uL [facility] Basophils/100 WBC (Bld) 0.7 % 0.0 - 2.0 % [facility] Eosinophils (Bld) [#/Vol] 0.2 10*3/uL 0.0 - 0.5 10*3/uL [facility] Eosinophils/100 WBC (Bld) 2.4 % 0.0 - 6.0 % [facility] Erythrocyte distribution width (RBC) [Ratio] 13.5 % 11.5 - 15.0 % [facility] Hematocrit (Bld) [Volume fraction] 29.9 % Male: 40.0-52.0 ; Female: 35.0-47.0 [facility] Hemoglobin (Bld) [Mass/Vol] 9.5 g/dL Low 11.7 - 18.0 g/dL [facility] Immature granulocytes (Bld) [#/Vol] 0.1 10*3/uL High NINF - 0.1 10*3/uL [facility] Immature granulocytes/100 WBC (Bld) 1.5 % 0.0 - 2.0 % [facility] Interpretation and review of laboratory results Abnormal [facility] Lymphocytes (Bld) [#/Vol] 1.8 10*3/uL 1.0 - 4.3 10*3/uL [facility] Lymphocytes/100 WBC (Bld) 24.6 % 15.0 - 45.0 % [facility] MCH (RBC) [Entitic mass] 27.1 pg 26.0 - 34.0 pg [facility] MCHC (RBC) [Mass/Vol] 31.8 % 30.5 - 36.0 % [facility] MCV (RBC) [Entitic vol] 85.2 fL 77.0 - 99.0 fL [facility] Monocytes (Bld) [#/Vol] 0.8 10*3/uL 0.0 - 0.9 10*3/uL [facility] Monocytes/100 WBC (Bld) 10.6 % 5.0 - 13.0 % [facility] Neutrophils (Bld) [#/Vol] 4.5 10*3/uL 1.8 - 7.5 10*3/uL [facility] Neutrophils/100 WBC (Bld) 60.2 % 38.0 - 82.0 % [facility] Nucleated RBC/100 WBC (Bld) [Ratio] 0 % [facility] Platelet mean volume (Bld) [Entitic vol] 9.6 fL 9.0 - 12.7 fL [facility] Platelets (Bld) [#/Vol] 407 10*3/uL 140 - 440 10*3/uL [facility] RBC (Bld) [#/Vol] 3.51 10*6/uL Male: 4.40-5.90; Female: 3.80-5.20 [facility] WBC (Bld) [#/Vol] 7.5 10*3/uL 3.6 - 10.7 10*3/uL [facility] CBC WITH AUTO DIFFERENTIALon 10-23-2024 Basophils (Bld) [#/Vol] 0.1 10*3/uL Normal 0.0-0.2 [facility] Comment on above: Performed By: #### L [id number] ####Composite Assembler: KEMAR ABEBE ([id number])[facility] (SBHLAB)[address] Basophils/100 WBC (Bld) 0.7 % Normal 0.0-2.0 [facility] Comment on above: Performed By: #### L [id number] ####Composite Assembler: KEMAR ABEBE ([id number])[facility] [place] (SBHLAB)[address] Eosinophils (Bld) [#/Vol] 0.2 10*3/uL Normal 0.0-0.5 [facility] Comment on above: Performed By: #### L [id number] ####Composite Assembler: KEMAR ABEBE ([id number])[facility]A [place] (SBHLAB)[address] Eosinophils/100 WBC (Bld) 2.4 % Normal 0.0-6.0 [facility] Comment on above: Performed By: #### L [id number] ####Composite Assembler: KEMAR ABEBE ([id number])[facility] [place] (SBHLAB)[address] Erythrocyte distribution width (RBC) [Ratio] 13.5 % Normal 11.5-15.0 [facility] Comment on above: Performed By: #### L [id number] ####Composite Assembler: KEMAR ABEBE ([id number])[facility] [place] (SBHLAB)[address] Hematocrit (Bld) [Volume fraction] 29.9 % Normal Male: 40.0-52.0 ; Female: 35.0-47.0 [facility] Comment on above: Performed By: #### L [id number] ####Composite Assembler: KEMAR ABEBE ([id number])[facility] (SBHLAB)[address] Hemoglobin (Bld) [Mass/Vol] 9.5 g/dL Low 11.7-18.0 [facility] Comment on above: Performed By: #### L [id number] ####Composite Assembler: KEMAR ABEBE ([id number])[facility] (SBHLAB)[address] IMMATURE GRANS % 1.5 % Normal 0.0-2.0 [facility] Comment on above: Performed By: #### L [id number] ####Composite Assembler: KEMAR ABEBE ([id number])[facility] (SBHLAB)[address] IMMATURE GRANS ABSOLUTE 0.1 10*3/uL High <0.1 [facility] Comment on above: Performed By: #### L [id number] ####Composite Assembler: KEMAR ABEBE ([id number])[facility] (SBHLAB)[address] Lymphocytes (Bld) [#/Vol] 1.8 10*3/uL Normal 1.0-4.3 [facility] Comment on above: Performed By: #### L [id number] ####Composite Assembler: KEMAR ABEBE ([id number])[facility]ITALA [facility] (SBHLAB)[address] Lymphocytes/100 WBC (Bld) 24.6 % Normal 15.0-45.0 [facility] Comment on above: Performed By: #### L [id number] ####Composite Assembler: KEMAR ABEBE ([id number])[facility] [place] (SBHLAB)[address] MCH (RBC) [Entitic mass] 27.1 pg Normal 26.0-34.0 [facility] Comment on above: Performed By: #### L [id number] ####Composite Assembler: KEMAR ABEBE ([id number])[facility] [place] (SBHLAB)[address] MCHC 31.8 % Normal 30.5-36.0 [facility] Comment on above: Performed By: #### L [id number] ####Composite Assembler: KEMAR LUDWIGSAAD ([id number])[facility] (SBHLAB)[address] MCV (RBC) [Entitic vol] 85.2 fL Normal 77.0-99.0 S [facility] Comment on above: Performed By: #### L [id number] ####Composite Assembler: KEMAR ABEBE ([id number])[facility] (SBHLAB)[address] Monocytes (Bld) [#/Vol] 0.8 10*3/uL Normal 0.0-0.9 [facility] Comment on above: Performed By: #### L [id number] ####Composite Assembler: KEMAR ABEBE ([id number])[facility] (SBHLAB)[address] Monocytes/100 WBC (Bld) 10.6 % Normal 5.0-13.0 S [facility] Comment on above: Performed By: #### L [id number] ####Composite Assembler: KEMAR LUDWIGSAAD ([id number])[facility] (SBHLAB)[address] NEUTROPHILS ABSOLUTE 4.5 10*3/uL Normal 1.8-7.5 [facility] Comment on above: Performed By: #### L [id number] ####Composite Assembler: KEMAR LUDWIGSAAD ([id number])[facility] (SBHLAB)[address] Neutrophils/100 WBC (Bld) 60.2 % Normal 38.0-82.0 [facility] Comment on above: Performed By: #### L [id number] ####Composite Assembler: KEMAR ABEBE ([id number])[facility] (SBHLAB)[address] NRBC 0.0 /100 WBCs Normal 0.0-2.0 [facility] Comment on above: Performed By: #### L [id number] ####Composite Assembler: KEMAR ABEBE ([id number])[facility]ITALWarren [facility]CL[facility]ITALEmmie (SBHLAB)[address] Platelet mean volume (Bld) [Entitic vol] 9.6 fL Normal 9.0-12.7 [facility] Comment on above: Performed By: #### L [id number] ####Composite Assembler: KEMAR ABEBE ([id number])[facility] (SBHLAB)[address] Platelets (Bld) [#/Vol] 407 10*3/uL Normal 140-440 [facility] Comment on above: Performed By: #### L [id number] ####Composite Assembler: KEMAR ABEBE ([id number])[facility] (SBHLAB)[address] [place] [address] RBC (Bld) [#/Vol] 3.51 10*6/uL Normal Male: 4.40-5.90; Female: 3.80-5.20 [facility] Comment on above: Performed By: #### L [id number] ####Composite Assembler: KEMAR ABEBE ([id number])[facility] (SBAB)[address] [place] [address] WBC (Bld) [#/Vol] 7.5 10*3/uL Normal 3.6-10.7 [facility] Comment on above: Performed By: #### L [id number] ####Composite Assembler: KEMAR ABEBE ([id number])[facility] (SBHLAB)[address] COMPREHENSIVE METABOLIC PANE Gigi 10-23-2024 Albumin [Mass/Vol] 2.6 g/dL Low 3.5-5.0 [facility] Comment on above: Performed By: #### L AB17, [id number] ####Composite Assembler: KEMAR ABEBE ([id number])[facility] (SBHLAB)[address] ALP [Catalytic activity/Vol] 115 U/L Normal [facility] Comment on above: Performed By: #### L AB17, [id number] ####Composite Assembler: KEMAR ABEBE ([id number])[facility] (SBHLAB)[address] ALT [Catalytic activity/Vol] 27 U/L Normal [facility] Comment on above: Performed By: #### L AB17, [id number] ####Composite Assembler: KEMAR ABEBE ([id number])[facility] (SBHLAB)[address] Anion gap [Moles/Vol] 7 mmol/L Normal 3-13 [facility] Comment on above: Performed By: #### L AB17, [id number] ####Composite Assembler: KEMAR ABEBE ([id number])[facility] [place] (SBHLAB)[address] AST [Catalytic activity/Vol] 18 U/L Normal <34 [facility] Comment on above: Performed By: #### L AB17, [id number] ####Composite Assembler: KEMAR ABEBE ([id number])[facility] (SBHLAB)[address] Bilirubin [Mass/Vol] 0.3 mg/dL Normal <1.2 [facility] Comment on above: Performed By: #### L AB17, [id number] ####Composite Assembler: KEMAR ABEBE ([id number])[facility] [place] (SBHLAB)[address] [place] [address] [place] Calcium [Mass/Vol] 8.7 mg/dL Normal 8.4-10.2 [facility] Comment on above: Performed By: #### L AB17, [id number] ####Composite Assembler: KEMAR ABEBE ([id number])[facility] (SBHLAB)[address] Chloride [Moles/Vol] 101 mmol/L Normal 98-107 [facility] Comment on above: Performed By: #### L AB17, [id number] ####Composite Assembler: KEMAR ABEBE ([id number])[facility]PITALWarren [facility] (SBHLAB)[address] CO2 [Moles/Vol] 29 mmol/L Normal 22-29 [facility] Comment on above: Performed By: #### L AB17, [id number] ####Composite Assembler: KEMAR ABEBE ([id number])[facility] (SBHLAB)[address] Creatinine [Mass/Vol] 0.84 mg/dL Normal [facility] Comment on above: Performed By: #### L AB17, [id number] ####Composite Assembler: KEMAR ABEBE ([id number])[facility] (SBHLAB)[address] GLOMERULAR FILTRATION RATE ML/MIN/1.73 SQ M.PREDICTED 81.2 mL/min/1.73m*2 Normal >60.0 [facility] Comment on above: Result Comment: Calc ulation based on the Chronic Kidney Disease Epidemiology Collaboration (CKD-EPI) equation refit without adjustment for race Performed By: #### L AB17, [id number] ####Composite Assembler: KEMAR ABEBE ([id number])[facility]ITALWar[facility] (SBHLAB)[address] [place] [address] [place] Glucose [Mass/Vol] 214 mg/dL High 74-100 [facility] Comment on above: Performed By: #### L AB17, [id number] ####Composite Assembler: KEMAR ABEBE ([id number])[facility] (SBHLAB)[address] Potassium [Moles/Vol] 3.4 mmol/L Low 3.5-5.1 [facility] Comment on above: Result Comment: [facility] potassium values may be up to 0.5 mmol/L lower than serum values. Performed By: #### L AB17, [id number] ####Composite Assembler: KEMAR ANDRAE ([id number])[facility]ITALWar[facility] (SBHLAB)[address] Protein [Mass/Vol] 6.1 g/dL Low 6.4-8.3 [facility] Comment on above: Performed By: #### L AB17, [id number] ####Composite Assembler: KEMAR MOMINHARRISON ([id number])[facility]ITALWar[facility] [place] (SBHLAB)[address] Sodium [Moles/Vol] 137 mmol/L Normal 136-145 [facility] Comment on above: Performed By: #### L AB17, [id number] ####Composite Assembler: KEMAR MOMINHARRISON ([id number])[facility]ITALWar[facility] (SBHLAB)[address] Urea nitrogen [Mass/Vol] 21 mg/dL Normal 9-23 [facility] Comment on above: Performed By: #### L AB17, [id number] ####Composite Assembler: KEMAR ANDRAE ([id number])[facility]ITALWar[facility] [place] (SBHLAB)[address] Comprehensive metabolic 1998 panelon 10-23-2024 Albumin [Mass/Vol] 2.6 g/dL Low 3.5 - 5.0 g/dL [facility] ALP [Catalytic activity/Vol] 115 U/L [facility] ALT [Catalytic activity/Vol] 27 U/L [facility] Anion gap [Moles/Vol] 7 mmol/L 3 - 13 mmol/L [facility] AST [Catalytic activity/Vol] 18 U/L NINF - 34 U/L [facility] Bilirubin [Mass/Vol] 0.3 mg/dL NINF - 1.2 mg/dL [facility] Calcium [Mass/Vol] 8.7 mg/dL 8.4 - 10. 2 mg/dL [facility] Chloride [Moles/Vol] 101 mmol/L 98 - 10 7 mmol/L [facility] CO2 [Moles/Vol] 29 mmol/L 22 - 29 mmol/L [facility] Creatinine [Mass/Vol] 0.84 mg/dL [facility] GFR/1.73 sq M.predicted (S/P/Bld) [Vol rate/Area] 81.2 mL/min - PINF [facility] Comment on above: Calculation based on the Chronic Kidney Disease Epidemiology Collaboration (CKD-EPI) equation refit without adjustment for race Glucose [Mass/Vol] 214 mg/dL High 74 - 100 mg/dL [facility] Interpretation and review of laboratory results Abnormal [facility] Potassium [Moles/Vol] 3.4 mmol/L Low 3.5 - 5.1 mmol/L [facility] Comment on above: Plasma potassium helen ues may be up to 0.5 mmol/L lower than serum values. Protein [Mass/Vol] 6.1 g/dL Low 6.4 - 8.3 g/dL [facility] Sodium [Moles/Vol] 137 mmol/L 136 - 145 mmol/L [facility] Urea nitrogen [Mass/Vol] 21 mg/dL 9 - 23 mg/dL [facility] Laboratory - Chemistry and C hemistry - challengeon 10-23-2024 Glucose [Mass/Vol] 309 mg/dL High 70 - 100 mg/dL [facility] Glucose [Mass/Vol] 296 mg/dL High 70 - 100 mg/dL [facility] Glucose [Mass/Vol] 240 mg/dL High 70 - 100 mg/dL [facility] Magnesium [Mass/Vol] 1.9 mg/dL 1.6 - 2 .6 mg/dL [facility] MAGNESIUMon 10-23-2024 Magnesium [Mass/Vol] 1.9 mg/dL Normal 1.6-2.6 [facility] Comment on above: Result Comment: MARIE Doshi COMMENTS:Higher values can be expected in females during menses. Performed By: #### L AB17, [id number] ####Composite Assembler: KEMAR ABEBE ([id number])[facility] (SBHLAB)[address] [place] [address] Magnesium [Mass/Vol]on 10-23 Interpretation and review of laboratory results Normal [facility] Higher values can be expected in females during menses. [facility] No Panel Informationon 10-23 Interpretation and review of laboratory results Abnormal [facility] Performed by: [facility], [address] [facility] [address] CLIA ID: [id number] [facility] Interpretation and review of laboratory results Abnormal [facility]: [facility], [address] [facility], [facility] [address] CLIA ID: [id number] [facility] Interpretation and review of laboratory results Abnormal [facility] Performed by: [facility], [address] [facility], [facility] [address] CLIA ID: [id number] [facility] Nursing Noteon 10-23-2024 Nursing Note Report called to Cassy kelley RN at [facility]. Normal [facility] Progress Noteon 10-23-2024 Progress Note Normal [facility] System [facility] Progress Note Normal [facility] Progress Note Normal [facility] 30on 10-22-2024 30 Normal [facility] 30 Normal [facility] Bacteria identified Aer cx N om (Unsp spec)Ordered By: Timi Ryder on 10-22-2024 Gram Stain Result Few Polymorphonuclea r leukocytes per low power field [facility] Gram Stain Result No organisms seen [facility] CBC W Auto Differential pane l (Bld)on 10-22-2024 Basophils (Bld) [#/Vol] 0.1 10*3/uL 0.0 - 0.2 10*3/uL [facility] Basophils/100 WBC (Bld) 0.5 % 0.0 - 2.0 % [facility] Eosinophils (Bld) [#/Vol] 0.2 10*3/uL 0.0 - 0.5 10*3/uL [facility] Eosinophils/100 WBC (Bld) 1.7 % 0.0 - 6.0 % [facility] Erythrocyte distribution width (RBC) [Ratio] 13.5 % 11.5 - 15.0 % [facility] Hematocrit (Bld) [Volume fraction] 30 % Male: 40.0-52.0 ; Female: 35.0-47.0 [facility] Hemoglobin (Bld) [Mass/Vol] 9.7 g/dL Low 11.7 - 18.0 g/dL [facility] Immature granulocytes (Bld) [#/Vol] 0.1 10*3/uL High NINF - 0.1 10*3/uL [facility] Immature granulocytes/100 WBC (Bld) 1.1 % 0.0 - 2.0 % [facility] Interpretation and review of laboratory results Abnormal [facility] Lymphocytes (Bld) [#/Vol] 1.6 10*3/uL 1.0 - 4.3 10*3/uL [facility] Lymphocytes/100 WBC (Bld) 15.9 % 15.0 - 45.0 % [facility] MCH (RBC) [Entitic mass] 27.2 pg 26.0 - 34.0 pg [facility] MCHC (RBC) [Mass/Vol] 32.3 % 30.5 - 36.0 % [facility] MCV (RBC) [Entitic vol] 84.3 fL 77.0 - 99.0 fL [facility] Monocytes (Bld) [#/Vol] 0.8 10*3/uL 0.0 - 0.9 10*3/uL [facility] Monocytes/100 WBC (Bld) 8.2 % 5.0 - 13.0 % [facility] Neutrophils (Bld) [#/Vol] 7.1 10*3/uL 1.8 - 7.5 10*3/uL [facility] Neutrophils/100 WBC (Bld) 72.6 % 38.0 - 82.0 % [facility] Nucleated RBC/100 WBC (Bld) [Ratio] 0 % [facility] Platelet mean volume (Bld) [Entitic vol] 9.5 fL 9.0 - 12.7 fL [facility] Platelets (Bld) [#/Vol] 419 10*3/uL 140 - 440 10*3/uL [facility] RBC (Bld) [#/Vol] 3.56 10*6/uL Male: 4.40-5.90; Female: 3.80-5.20 [facility] WBC (Bld) [#/Vol] 9.7 10*3/uL 3.6 - 10.7 10*3/uL [facility] CBC WITH AUTO DIFFERENTIALon 10-22-2024 Basophils (Bld) [#/Vol] 0.1 10*3/uL Normal 0.0-0.2 [facility] Comment on above: Performed By: #### L [id number] ####Composite Assembler: KEMAR BANUELOSCER ([id number])[facility] (SBHLAB)[address] Basophils/100 WBC (Bld) 0.5 % Normal 0.0-2.0 [facility] Comment on above: Performed By: #### L [id number] ####Composite Assembler: KEMAR LUDWIGSAAD ([id number])[facility] (SBHLAB)[address] Eosinophils (Bld) [#/Vol] 0.2 10*3/uL Normal 0.0-0.5 [facility] Comment on above: Performed By: #### L [id number] ####Composite Assembler: KEMAR MOMINHARRISON ([id number])[facility] (SBHLAB)[address] [place] [address] Eosinophils/100 WBC (Bld) 1.7 % Normal 0.0-6.0 [facility] Comment on above: Performed By: #### L [id number] ####Composite Assembler: KEMAR LUDWIGSAAD ([id number])[facility] [place] (SB[facility])[address] [place] [address] Erythrocyte distribution width (RBC) [Ratio] 13.5 % Normal 11.5-15.0 [facility] Comment on above: Performed By: #### L [id number] ####Composite Assembler: KEMAR LUDWIGSAAD ([id number])[facility] [place] (SB[facility])[address] [place] [address] Hematocrit (Bld) [Volume fraction] 30.0 % Normal Male: 40.0-52.0 ; Female: 35.0-47.0 [facility] Comment on above: Performed By: #### L [id number] ####Composite Assembler: KEMAR LUDWIGSAAD ([id number])[facility] [place] (SB[facility]AB)[address] Hemoglobin (Bld) [Mass/Vol] 9.7 g/dL Low 11.7-18.0 [facility] Comment on above: Performed By: #### L [id number] ####Composite Assembler: KEMAR ABEBE ([id number])[facility] [place] (SBHLAB)[address] IMMATURE GRANS % 1.1 % Normal 0.0-2.0 [facility] Comment on above: Performed By: #### L [id number] ####Composite Assembler: KEMAR ABEBE ([id number])[facility] (SBHLAB)[address] IMMATURE GRANS ABSOLUTE 0.1 10*3/uL High <0.1 [facility] Comment on above: Performed By: #### L [id number] ####Composite Assembler: KEMAR ABEBE ([id number])[facility] (SBHLAB)[address] [place] [address] Lymphocytes (Bld) [#/Vol] 1.6 10*3/uL Normal 1.0-4.3 [facility] Comment on above: Performed By: #### L [id number] ####Composite Assembler: KEMAR ABEBE ([id number])[facility] (SBAB)[address] Lymphocytes/100 WBC (Bld) 15.9 % Normal 15.0-45.0 [facility] Comment on above: Performed By: #### L [id number] ####Composite Assembler: KEMAR ABEBE ([id number])[facility]IT[facility] (SBHLAB)[address] MCH (RBC) [Entitic mass] 27.2 pg Normal 26.0-34.0 [facility] Comment on above: Performed By: #### L [id number] ####Composite Assembler: KEMAR ABEBE ([id number])[facility]IT[facility] (SBHLAB)[address] [place] [address] MCHC 32.3 % Normal 30.5-36.0 [facility] Comment on above: Performed By: #### L [id number] ####Composite Assembler: KEMAR ABEBE ([id number])[facility] (SBHLAB)[address] MCV (RBC) [Entitic vol] 84.3 fL Normal 77.0-99.0 S [facility] Comment on above: Performed By: #### L [id number] ####Composite Assembler: KEMAR ABEBE ([id number])[facility] (SBHLAB)[address] Monocytes (Bld) [#/Vol] 0.8 10*3/uL Normal 0.0-0.9 [facility] Comment on above: Performed By: #### L [id number] ####Composite Assembler: KEMAR ABEBE ([id number])[facility] [place] (SBHLAB)[address] Monocytes/100 WBC (Bld) 8.2 % Normal 5.0-13.0 S [facility] Comment on above: Performed By: #### L [id number] ####Composite Assembler: KEMAR LUDWIGSAAD ([id number])[facility] [place] (SB[facility]AB)[address] NEUTROPHILS ABSOLUTE 7.1 10*3/uL Normal 1.8-7.5 [facility] Comment on above: Performed By: #### L [id number] ####Composite Assembler: KEMAR ABEBE ([id number])[facility] [place] (SB[facility]AB)[address] Neutrophils/100 WBC (Bld) 72.6 % Normal 38.0-82.0 [facility] Comment on above: Performed By: #### L [id number] ####Composite Assembler: KEMAR ABEBE ([id number])[facility] [place] (SB[facility]AB)[address] NRBC 0.0 /100 WBCs Normal 0.0-2.0 [facility] Comment on above: Performed By: #### L [id number] ####Composite Assembler: KEMAR ABEBE ([id number])[facility]PITALWarren KASPEREmmie (SBHLAB)[address] Platelet mean volume (Bld) [Entitic vol] 9.5 fL Normal 9.0-12.7 [facility] Comment on above: Performed By: #### L [id number] ####Composite Assembler: KEMAR ABEBE ([id number])[facility]OSPITALWarren [facility]ITALEmmie (SBHLAB)[address] Platelets (Bld) [#/Vol] 419 10*3/uL Normal 140-440 [facility] Comment on above: Performed By: #### L [id number] ####Composite Assembler: KEMAR ABEBE ([id number])[facility]ITALWarren [facility]ITALEmmie (SBHLAB)[address] RBC (Bld) [#/Vol] 3.56 10*6/uL Normal Male: 4.40-5.90; Female: 3.80-5.20 [facility] Comment on above: Performed By: #### L [id number] ####Composite Assembler: KEMAR ABEBE ([id number])[facility]ITALWarren DAWES (SBHLAB)[address] [place] [address] WBC (Bld) [#/Vol] 9.7 10*3/uL Normal 3.6-10.7 [facility] Comment on above: Performed By: #### L [id number] ####Composite Assembler: KEMAR ABEBE ([id number])[facility]ITALWarren [facility]IT[facility]mmie (SBHLAB)[address] COMPREHENSIVE METABOLIC PANE Gigi 10-22-2024 Albumin [Mass/Vol] 2.7 g/dL Low 3.5-5.0 [facility] Comment on above: Performed By: #### L AB17, [id number] ####Composite Assembler: KEMAR ABEBE ([id number])[facility]ITALWarren [facility]mm[facility] (SBHLAB)[address] ALP [Catalytic activity/Vol] 127 U/L Normal [facility] Comment on above: Performed By: #### L AB17, [id number] ####Composite Assembler: KEMAR ABEBE ([id number])[facility]ITALWarren KASPERN (SBHLAB)[address] ALT [Catalytic activity/Vol] 32 U/L Normal [facility] Comment on above: Performed By: #### L AB17, [id number] ####Composite Assembler: KEMAR ABEBE ([id number])[facility]ITALA SHERICLOVIS [facility] HOSPITALN (SBHLAB)[address] Anion gap [Moles/Vol] 11 mmol/L Normal 3-13 [facility] Comment on above: Performed By: #### L AB17, [id number] ####Composite Assembler: KEMAR ABEBE ([id number])[facility]ITALWarren KASPERN (SBHLAB)[address] AST [Catalytic activity/Vol] 19 U/L Normal <34 [facility] Comment on above: Performed By: #### L AB17, [id number] ####Composite Assembler: KEMAR ABEBE ([id number])[facility] [place] (SBHLAB)[address] Bilirubin [Mass/Vol] 0.3 mg/dL Normal <1.2 [facility] Comment on above: Performed By: #### L AB17, [id number] ####Composite Assembler: KEMAR ABEBE ([id number])[facility]ITAL[facility] (SBHLAB)[address] Calcium [Mass/Vol] 8.7 mg/dL Normal 8.4-10.2 [facility] Comment on above: Performed By: #### L AB17, [id number] ####Composite Assembler: KEMAR ABEBE ([id number])[facility] SHERICLOVIS BAPTIST HOSPITALN (SBHLAB)[address] Chloride [Moles/Vol] 104 mmol/L Normal 98-107 [facility] Comment on above: Performed By: #### L AB17, [id number] ####Composite Assembler: KEMAR ABEBE ([id number])[facility]OSPITALWarren [facility]N (SBHLAB)[address] CO2 [Moles/Vol] 24 mmol/L Normal 22-29 [facility] Comment on above: Performed By: #### L AB17, [id number] ####Composite Assembler: KEMAR ABEBE ([id number])[facility] (SBHLAB)[address] Creatinine [Mass/Vol] 1.05 mg/dL Normal [facility] Comment on above: Performed By: #### L AB17, [id number] ####Composite Assembler: KEMAR ABEBE ([id number])[facility] (HLAB)[address] GLOMERULAR FILTRATION RATE ML/MIN/1.73 SQ M.PREDICTED 62.1 mL/min/1.73m*2 Normal >60.0 [facility] Comment on above: Result Comment: Calc ulation based on the Chronic Kidney Disease Epidemiology Collaboration (CKD-EPI) equation refit without adjustment for race Performed By: #### L AB17, [id number] ####Composite Assembler: KEMAR ABEBE ([id number])[facility] (HLAB)[address] Glucose [Mass/Vol] 148 mg/dL High 74-100 [facility] Comment on above: Performed By: #### L AB17, [id number] ####Composite Assembler: KEMAR ABEBE ([id number])[facility] (SBHLAB)[address] [place] [address] [place] Potassium [Moles/Vol] 3.3 mmol/L Low 3.5-5.1 [facility] Comment on above: Result Comment: [facility] potassium values may be up to 0.5 mmol/L lower than serum values. Performed By: #### L AB17, [id number] ####Composite Assembler: KEMAR ABEBE ([id number])[facility] (SBHLAB)[address] Protein [Mass/Vol] 6.4 g/dL Normal 6.4-8.3 [facility] Comment on above: Performed By: #### L AB17, [id number] ####Composite Assembler: KEMAR MOMINHARRISON ([id number])[facility]ITALWarren VIGIL (SBHLAB)[address] Sodium [Moles/Vol] 139 mmol/L Normal 136-145 [facility] Comment on above: Performed By: #### L AB17, [id number] ####Composite Assembler: KEMAR MOMINHARRISON ([id number])[facility] (SBHLAB)[address] Urea nitrogen [Mass/Vol] 35 mg/dL High 9-23 [facility] Comment on above: Performed By: #### L AB17, [id number] ####Composite Assembler: KEMAR MOMINHARRISON ([id number])[facility] (SBHLAB)[address] Comprehensive metabolic 1998 panelon 10-22-2024 Albumin [Mass/Vol] 2.7 g/dL Low 3.5 - 5.0 g/dL [facility] ALP [Catalytic activity/Vol] 127 U/L [facility] ALT [Catalytic activity/Vol] 32 U/L [facility] Anion gap [Moles/Vol] 11 mmol/L 3 - 13 mmol/L [facility] AST [Catalytic activity/Vol] 19 U/L [facility] - 34 U/L [facility] Bilirubin [Mass/Vol] 0.3 mg/dL [facility] - 1.2 mg/dL [facility] Calcium [Mass/Vol] 8.7 mg/dL 8.4 - 10. 2 mg/dL [facility] Chloride [Moles/Vol] 104 mmol/L 98 - 10 7 mmol/L [facility] CO2 [Moles/Vol] 24 mmol/L 22 - 29 mmol/L [facility] Creatinine [Mass/Vol] 1.05 mg/dL [facility] GFR/1.73 sq M.predicted (S/P/Bld) [Vol rate/Area] 62.1 mL/min - PINF [facility] Comment on above: Calculation based on the Chronic Kidney Disease Epidemiology Collaboration (CKD-EPI) equation refit without adjustment for race Glucose [Mass/Vol] 148 mg/dL High 74 - 100 mg/dL [facility] Interpretation and review of laboratory results Abnormal [facility] Potassium [Moles/Vol] 3.3 mmol/L Low 3.5 - 5.1 mmol/L [facility] Comment on above: Plasma potassium helen ues may be up to 0.5 mmol/L lower than serum values. Protein [Mass/Vol] 6.4 g/dL 6.4 - 8.3 g/dL [facility] Sodium [Moles/Vol] 139 mmol/L 136 - 145 mmol/L [facility] Urea nitrogen [Mass/Vol] 35 mg/dL High 9 - 23 mg/dL [facility] Laboratory - Chemistry and C hemistry - challengeon 10-22-2024 Glucose [Mass/Vol] 312 mg/dL High 70 - 100 mg/dL [facility] Glucose [Mass/Vol] 283 mg/dL High 70 - 100 mg/dL [facility] Glucose [Mass/Vol] 295 mg/dL High 70 - 100 mg/dL [facility] Glucose [Mass/Vol] 258 mg/dL High 70 - 100 mg/dL [facility] Glucose [Mass/Vol] 210 mg/dL High 70 - 100 mg/dL [facility] Magnesium [Mass/Vol] 2 mg/dL 1.6 - 2 .6 mg/dL [facility] Laboratory - Microbiology an d Antimicrobial susceptibilityOrdered By: Timi Ryder on 10-22-2024 Bacteria identified Aer cx Nom (Unsp spec) No growth at 72 hours [facility] MAGNESIUMon 10-22-2024 Magnesium [Mass/Vol] 2.0 mg/dL Normal 1.6-2.6 [facility] Comment on above: Result Comment: MARIE Doshi COMMENTS:Higher values can be expected in females during menses. Performed By: #### L AB17, [id number] ####Composite Assembler: KEMAR ABEBE ([id number])[facility] ([facility])[address] [place] [address] Magnesium [Mass/Vol]on 10-22 Interpretation and review of laboratory results Normal [facility] Higher values can be expected in females during menses. [facility] No Panel Informationon 10-22 Interpretation and review of laboratory results Abnormal [facility] Performed by: [facility], [address], [facility] [address] CLIA ID: [id number] [facility] Interpretation and review of laboratory results Abnormal [facility] Performed by: [facility], [address], [facility] [address] CLIA ID: [id number] [facility] Interpretation and review of laboratory results Abnormal [facility] Performed by: [facility], [address], [facility] [address] CLIA ID: [id number] [facility] Interpretation and review of laboratory results Abnormal [facility] Performed by: Lakiawarren [facility], [address], [facility] [address] CLIA ID: [id number] [facility] Progress Noteon 10-22-2024 Progress Note Normal [facility] Progress Note Normal [facility] [id number] 10-21-2024 [id number] Normal [facility] CBC W Auto Differential pane l (Bld)on 10-21-2024 Basophils (Bld) [#/Vol] 0.1 10*3/uL 0.0 - 0.2 10*3/uL [facility] Basophils/100 WBC (Bld) 0.6 % 0.0 - 2.0 % [facility] Eosinophils (Bld) [#/Vol] 0.2 10*3/uL 0.0 - 0.5 10*3/uL [facility] Eosinophils/100 WBC (Bld) 1.6 % 0.0 - 6.0 % [facility] Erythrocyte distribution width (RBC) [Ratio] 13.4 % 11.5 - 15.0 % [facility] Hematocrit (Bld) [Volume fraction] 31.6 % Male: 40.0-52.0 ; Female: 35.0-47.0 [facility] Hemoglobin (Bld) [Mass/Vol] 10.2 g/dL Low 11.7 - 18.0 g/dL [facility] Immature granulocytes (Bld) [#/Vol] 0.1 10*3/uL High NINF - 0.1 10*3/uL [facility] Immature granulocytes/100 WBC (Bld) 0.8 % 0.0 - 2.0 % [facility] Interpretation and review of laboratory results Abnormal [facility] Lymphocytes (Bld) [#/Vol] 1.8 10*3/uL 1.0 - 4.3 10*3/uL [facility] Lymphocytes/100 WBC (Bld) 15.3 % 15.0 - 45.0 % [facility] MCH (RBC) [Entitic mass] 27.3 pg 26.0 - 34.0 pg [facility] MCHC (RBC) [Mass/Vol] 32.3 % 30.5 - 36.0 % [facility] MCV (RBC) [Entitic vol] 84.7 fL 77.0 - 99.0 fL [facility] Monocytes (Bld) [#/Vol] 0.8 10*3/uL 0.0 - 0.9 10*3/uL [facility] Monocytes/100 WBC (Bld) 6.8 % 5.0 - 13.0 % [facility] Neutrophils (Bld) [#/Vol] 8.9 10*3/uL High 1.8 - 7.5 10*3/uL [facility] Neutrophils/100 WBC (Bld) 74.9 % 38.0 - 82.0 % [facility] Nucleated RBC/100 WBC (Bld) [Ratio] 0 % [facility] Platelet mean volume (Bld) [Entitic vol] 9.7 fL 9.0 - 12.7 fL [facility] Platelets (Bld) [#/Vol] 396 10*3/uL 140 - 440 10*3/uL [facility] RBC (Bld) [#/Vol] 3.73 10*6/uL Male: 4.40-5.90; Female: 3.80-5.20 [facility] WBC (Bld) [#/Vol] 11.9 10*3/uL High 3.6 - 10.7 10*3/uL [facility] CBC WITH AUTO DIFFERENTIALon 10-21-2024 Basophils (Bld) [#/Vol] 0.1 10*3/uL Normal 0.0-0.2 [facility] Comment on above: Performed By: #### L [id number] ####Composite Assembler: KEMAR ABEBE ([id number])[facility] (SBHLAB)[address] Basophils/100 WBC (Bld) 0.6 % Normal 0.0-2.0 [facility] Comment on above: Performed By: #### L [id number] ####Composite Assembler: KEMAR ABEBE ([id number])[facility] (SBHLAB)[address] Eosinophils (Bld) [#/Vol] 0.2 10*3/uL Normal 0.0-0.5 [facility] Comment on above: Performed By: #### L [id number] ####Composite Assembler: KEMAR ABEBE ([id number])[facility] [place] (SB[facility]AB)[address] Eosinophils/100 WBC (Bld) 1.6 % Normal 0.0-6.0 [facility] Comment on above: Performed By: #### L [id number] ####Composite Assembler: KEMAR ABEBE ([id number])[facility] [place] (SBHLAB)[address] [place] [address] Erythrocyte distribution width (RBC) [Ratio] 13.4 % Normal 11.5-15.0 [facility] Comment on above: Performed By: #### L [id number] ####Composite Assembler: KEMAR ABEBE ([id number])[facility]A BARBCLOV[facility]ITALN (SBHLAB)[address] [place] [address] Hematocrit (Bld) [Volume fraction] 31.6 % Normal Male: 40.0-52.0 ; Female: 35.0-47.0 [facility] Comment on above: Performed By: #### L [id number] ####Composite Assembler: KEMAR ABEBE ([id number])[facility] [place] (SBHLAB)[address] Hemoglobin (Bld) [Mass/Vol] 10.2 g/dL Low 11.7-18.0 [facility] Comment on above: Performed By: #### L [id number] ####Composite Assembler: KEMAR ABEBE ([id number])[facility] (SBHLAB)[address] IMMATURE GRANS % 0.8 % Normal 0.0-2.0 [facility] Comment on above: Performed By: #### L [id number] ####Composite Assembler: KEMAR ABEBE ([id number])[facility] [place] (SBHLAB)[address] IMMATURE GRANS ABSOLUTE 0.1 10*3/uL High <0.1 [facility] Comment on above: Performed By: #### L [id number] ####Composite Assembler: KEMAR ABEBE ([id number])[facility] BARBMARYN (SBHLAB)[address] Lymphocytes (Bld) [#/Vol] 1.8 10*3/uL Normal 1.0-4.3 [facility] Comment on above: Performed By: #### L [id number] ####Composite Assembler: KEMAR ABEBE ([id number])[facility] [place] (SBHLAB)[address] Lymphocytes/100 WBC (Bld) 15.3 % Normal 15.0-45.0 [facility] Comment on above: Performed By: #### L [id number] ####Composite Assembler: KEMAR ABEBE ([id number])[facility]A BARBMARYN (SBHLAB)[address] MCH (RBC) [Entitic mass] 27.3 pg Normal 26.0-34.0 [facility] Comment on above: Performed By: #### L [id number] ####Composite Assembler: KEMAR ABEBE ([id number])[facility] [place] (SBHLAB)[address] MCHC 32.3 % Normal 30.5-36.0 [facility] Comment on above: Performed By: #### L [id number] ####Composite Assembler: KEMAR ABEBE ([id number])[facility] [place] (SBHLAB)[address] MCV (RBC) [Entitic vol] 84.7 fL Normal 77.0-99.0 S [facility] Comment on above: Performed By: #### L [id number] ####Composite Assembler: KEMAR ABEBE ([id number])[facility] [place] (SBHLAB)[address] Monocytes (Bld) [#/Vol] 0.8 10*3/uL Normal 0.0-0.9 [facility] Comment on above: Performed By: #### L [id number] ####Composite Assembler: KEMAR ABEBE ([id number])[facility] [place] (SBHLAB)[address] Monocytes/100 WBC (Bld) 6.8 % Normal 5.0-13.0 S [facility] Comment on above: Performed By: #### L [id number] ####Composite Assembler: KEMAR ABEBE ([id number])[facility] [place] (SBHLAB)[address] NEUTROPHILS ABSOLUTE 8.9 10*3/uL High 1.8-7.5 [facility] Comment on above: Performed By: #### L [id number] ####Composite Assembler: KEMAR ABEBE ([id number])[facility] [place] (SBHLAB)[address] Neutrophils/100 WBC (Bld) 74.9 % Normal 38.0-82.0 [facility] Comment on above: Performed By: #### L [id number] ####Composite Assembler: KEMAR ABEBE ([id number])[facility] [place] (SBHLAB)[address] [place] [address] [place] NRBC 0.0 /100 WBCs Normal 0.0-2.0 [facility] Comment on above: Performed By: #### L [id number] ####Composite Assembler: KEMAR ABEBE ([id number])[facility] [place] (SBHLAB)[address] Platelet mean volume (Bld) [Entitic vol] 9.7 fL Normal 9.0-12.7 [facility] Comment on above: Performed By: #### L [id number] ####Composite Assembler: KEMAR ABEBE ([id number])[facility] [place] (SBHLAB)[address] Platelets (Bld) [#/Vol] 396 10*3/uL Normal 140-440 [facility] Comment on above: Performed By: #### L [id number] ####Composite Assembler: KEMAR ABEBE ([id number])[facility] [place] (SBHLAB)[address] RBC (Bld) [#/Vol] 3.73 10*6/uL Normal Male: 4.40-5.90; Female: 3.80-5.20 [facility] Comment on above: Performed By: #### L [id number] ####Composite Assembler: KEMAR ABEBE ([id number])[facility]ITAL[facility] (SBHLAB)[address] [place] [address] WBC (Bld) [#/Vol] 11.9 10*3/uL High 3.6-10.7 [facility] Comment on above: Performed By: #### L [id number] ####Composite Assembler: KEMAR ABEBE ([id number])[facility]ITAL[facility] [place] (SBHLAB)[address] COMPREHENSIVE METABOLIC PANE Gigi 10-21-2024 Albumin [Mass/Vol] 2.7 g/dL Low 3.5-5.0 [facility] Comment on above: Performed By: #### L AB17, [id number] ####Composite Assembler: KEMAR ABEBE ([id number])[facility] [place] (SBHLAB)[address] ALP [Catalytic activity/Vol] 135 U/L Normal [facility] Comment on above: Performed By: #### L AB17, [id number] ####Composite Assembler: KEMAR ABEEB ([id number])[facility] [place] (SBHLAB)[address] ALT [Catalytic activity/Vol] 42 U/L Normal [facility] Comment on above: Performed By: #### L AB17, [id number] ####Composite Assembler: KEMAR ABEBE ([id number])[facility] [place] (SBHLAB)[address] Anion gap [Moles/Vol] 12 mmol/L Normal 3-13 [facility] Comment on above: Performed By: #### L AB17, [id number] ####Composite Assembler: KEMAR ABEBE ([id number])[facility] (SBHLAB)[address] AST [Catalytic activity/Vol] 20 U/L Normal <34 [facility] Comment on above: Performed By: #### L AB17, [id number] ####Composite Assembler: KEMAR ABEBE ([id number])[facility] [place] (SBHLAB)[address] Bilirubin [Mass/Vol] 0.3 mg/dL Normal <1.2 [facility] Comment on above: Performed By: #### L AB17, LPS472 ####Composite Assembler: KEMAR ABEBE ([id number])[facility] [place] (SBHLAB)[address] Calcium [Mass/Vol] 8.8 mg/dL Normal 8.4-10.2 [facility] Comment on above: Performed By: #### L AB17, [id number] ####Composite Assembler: KEMAR ABEBE ([id number])[facility] [place] (SBHLAB)[address] [place] [address] [place] Chloride [Moles/Vol] 100 mmol/L Normal 98-107 [facility] Comment on above: Performed By: #### L AB17, UIR113 ####Composite Assembler: KEMAR ABEBE ([id number])[facility] [place] (SBHLAB)[address] CO2 [Moles/Vol] 23 mmol/L Normal 22-29 [facility] Comment on above: Performed By: #### L AB17, [id number] ####Composite Assembler: KEMAR ABEBE ([id number])[facility] (SBHLAB)[address] Creatinine [Mass/Vol] 1.35 mg/dL Normal [facility] Comment on above: Performed By: #### L AB17, [id number] ####Composite Assembler: KEMAR ABEBE ([id number])[facility] (SBHLAB)[address] GLOMERULAR FILTRATION RATE ML/MIN/1.73 SQ M.PREDICTED 45.9 mL/min/1.73m*2 Low >60.0 [facility] Comment on above: Result Comment: Calc ulation based on the Chronic Kidney Disease Epidemiology Collaboration (CKD-EPI) equation refit without adjustment for race Performed By: #### L AB17, [id number] ####Composite Assembler: KEMAR ABEBE ([id number])[facility] (SBHLAB)[address] Glucose [Mass/Vol] 112 mg/dL High 74-100 [facility] Comment on above: Performed By: #### L AB17, [id number] ####Composite Assembler: KEMAR ABEBE ([id number])[facility] (SBHLAB)[address] [place] [address] [place] Potassium [Moles/Vol] 3.3 mmol/L Low 3.5-5.1 [facility] Comment on above: Result Comment: [facility] potassium values may be up to 0.5 mmol/L lower than serum values. Performed By: #### L AB17, [id number] ####Composite Assembler: KEMAR ABEBE ([id number])[facility] (SBHLAB)[address] Protein [Mass/Vol] 6.6 g/dL Normal 6.4-8.3 [facility] Comment on above: Performed By: #### L AB17, [id number] ####Composite Assembler: KEMAR BANUELOSCER ([id number])[facility] (SBHLAB)[address] Sodium [Moles/Vol] 135 mmol/L Low 136-145 [facility] Comment on above: Performed By: #### L AB17, [id number] ####Composite Assembler: KEMAR MOMINHARRISON ([id number])[facility] (SBHLAB)[address] Urea nitrogen [Mass/Vol] 48 mg/dL High 9-23 [facility] Comment on above: Performed By: #### L AB17, [id number] ####Composite Assembler: KEMAR MOMINHARRISON ([id number])[facility] (SBHLAB)[address] Comprehensive metabolic 1998 panelon 10-21-2024 Albumin [Mass/Vol] 2.7 g/dL Low 3.5 - 5.0 g/dL [facility] ALP [Catalytic activity/Vol] 135 U/L [facility] ALT [Catalytic activity/Vol] 42 U/L [facility] Anion gap [Moles/Vol] 12 mmol/L 3 - 13 mmol/L [facility] AST [Catalytic activity/Vol] 20 U/L [facility]/L [facility] Bilirubin [Mass/Vol] 0.3 mg/dL [facility] - 1.2 mg/dL [facility] Calcium [Mass/Vol] 8.8 mg/dL 8.4 - 10. 2 mg/dL [facility] Chloride [Moles/Vol] 100 mmol/L 98 - 10 7 mmol/L [facility] CO2 [Moles/Vol] 23 mmol/L 22 - 29 mmol/L [facility] Creatinine [Mass/Vol] 1.35 mg/dL [facility] GFR/1.73 sq M.predicted (S/P/Bld) [Vol rate/Area] 45.9 mL/min Low - PINF [facility] Comment on above: Calculation based on the Chronic Kidney Disease Epidemiology Collaboration (CKD-EPI) equation refit without adjustment for race Glucose [Mass/Vol] 112 mg/dL High 74 - 100 mg/dL [facility] Interpretation and review of laboratory results Abnormal [facility] Potassium [Moles/Vol] 3.3 mmol/L Low 3.5 - 5.1 mmol/L [facility] Comment on above: Plasma potassium helen ues may be up to 0.5 mmol/L lower than serum values. Protein [Mass/Vol] 6.6 g/dL 6.4 - 8.3 g/dL [facility] Sodium [Moles/Vol] 135 mmol/L Low 136 - 145 mmol/L [facility] Urea nitrogen [Mass/Vol] 48 mg/dL High 9 - 23 mg/dL [facility] Laboratory - Chemistry and C hemistry - challengeon 10-21-2024 Glucose [Mass/Vol] 151 mg/dL High 70 - 100 mg/dL [facility] Glucose [Mass/Vol] 141 mg/dL High 70 - 100 mg/dL [facility] Glucose [Mass/Vol] 161 mg/dL High 70 - 100 mg/dL [facility] Glucose [Mass/Vol] 182 mg/dL High 70 - 100 mg/dL [facility] Glucose [Mass/Vol] 185 mg/dL High 70 - 100 mg/dL [facility] Magnesium [Mass/Vol] 2 mg/dL 1.6 - 2 .6 mg/dL [facility] MAGNESIUMon 10-21-2024 Magnesium [Mass/Vol] 2.0 mg/dL Normal 1.6-2.6 [facility] Comment on above: Result Comment: MARIE Doshi COMMENTS:Higher values can be expected in females during menses. Performed By: #### L AB17, [id number] ####Composite Assembler: KEMAR ABEBE ([id number])[facility]ITAL[facility] [place] (SBHLAB)[address] Magnesium [Mass/Vol]on 10-21 Interpretation and review of laboratory results Normal [facility] Higher values can be expected in females during menses. [facility] No Panel Informationon 10-21 Interpretation and review of laboratory results Abnormal [facility] Performed by: Nati [facility], [address] [facility] [address] CLIA ID: [id number] [facility] Interpretation and review of laboratory results Abnormal [facility] Performed by: Lakiawarren [place] [facility], [address] [facility] [address] CLIA ID: [id number] [facility] Interpretation and review of laboratory results Abnormal [facility] Performed by: Nati [place] [facility], [address] [facility] [address] CLIA ID: [id number] [facility] Interpretation and review of laboratory results Abnormal [facility] Performed by: Lakiawarren [facility], [address] [facility] [address] CLIA ID: [id number] [facility] Interpretation and review of laboratory results Abnormal [facility] Performed by: Lakiawarren [place] [facility], [address] [facility] [address] CLIA ID: [id number] [facility] Progress Noteon 10-21-2024 Progress Note Normal [facility] Progress Note Normal [facility] [id number] 10-20-2024 [id number] Normal [facility] [id number] [facility] t [facility] TCC request. Await review and response regarding ability to accept. TCC notified. Normal [facility] Bacteria identified Cx Nom ( U)Ordered By: Sagrario Clark on 10-20-2024 Interpretation and review of laboratory results Normal [facility] C-REACTIVE PROTEINon 024 CRP [Mass/Vol] 261.6 mg/L High <5.0 [facility] Comment on above: Performed By: #### L [id number], LAB17, [id number] ####Composite Assembler: KEMAR ABEBE ([id number])[facility]ITAL[facility] [place] (SBHLAB)[address] CBC W Auto Differential pane l (Bld)on 10-20-2024 Basophils (Bld) [#/Vol] 0 10*3/uL 0.0 - 0.2 10*3/uL [facility] Basophils/100 WBC (Bld) 0.1 % 0.0 - 2.0 % [facility] Eosinophils (Bld) [#/Vol] 0 10*3/uL 0.0 - 0.5 10*3/uL [facility] Eosinophils/100 WBC (Bld) 0.2 % 0.0 - 6.0 % [facility] Erythrocyte distribution width (RBC) [Ratio] 13.9 % 11.5 - 15.0 % [facility] Hematocrit (Bld) [Volume fraction] 33 % Male: 40.0-52.0 ; Female: 35.0-47.0 [facility] Hemoglobin (Bld) [Mass/Vol] 10.5 g/dL Low 11.7 - 18.0 g/dL [facility] Immature granulocytes (Bld) [#/Vol] 0.2 10*3/uL High NINF - 0.1 10*3/uL [facility] Immature granulocytes/100 WBC (Bld) 1.3 % 0.0 - 2.0 % [facility] Interpretation and review of laboratory results Abnormal [facility] Lymphocytes (Bld) [#/Vol] 1.1 10*3/uL 1.0 - 4.3 10*3/uL [facility] Lymphocytes/100 WBC (Bld) 8 % Low 15.0 - 45.0 % [facility] MCH (RBC) [Entitic mass] 27.3 pg 26.0 - 34.0 pg [facility] MCHC (RBC) [Mass/Vol] 31.8 % 30.5 - 36.0 % [facility] MCV (RBC) [Entitic vol] 85.7 fL 77.0 - 99.0 fL [facility] Monocytes (Bld) [#/Vol] 0.8 10*3/uL 0.0 - 0.9 10*3/uL [facility] Monocytes/100 WBC (Bld) 5.7 % 5.0 - 13.0 % [facility] Neutrophils (Bld) [#/Vol] 11.4 10*3/uL High 1.8 - 7.5 10*3/uL [facility] Neutrophils/100 WBC (Bld) 84.7 % High 38.0 - 82.0 % [facility] Nucleated RBC/100 WBC (Bld) [Ratio] 0 % [facility] [employer] Platelet mean volume (Bld) [Entitic vol] 9.9 fL 9.0 - 12.7 fL [facility] Platelets (Bld) [#/Vol] 353 10*3/uL 140 - 440 10*3/uL [facility] RBC (Bld) [#/Vol] 3.85 10*6/uL Male: 4.40-5.90; Female: 3.80-5.20 [facility] WBC (Bld) [#/Vol] 13.4 10*3/uL High 3.6 - 10.7 10*3/uL [facility] CBC WITH AUTO DIFFERENTIALon 10-20-2024 Basophils (Bld) [#/Vol] 0.0 10*3/uL Normal 0.0-0.2 [facility] Comment on above: Performed By: #### L [id number] ####Composite Assembler: KEMAR ABEBE ([id number])[facility] (SBAB)[address] [place] [address] Basophils/100 WBC (Bld) 0.1 % Normal 0.0-2.0 [facility] Comment on above: Performed By: #### L [id number] ####Composite Assembler: KEMAR ABEBE ([id number])[facility] (SBHLAB)[address] Eosinophils (Bld) [#/Vol] 0.0 10*3/uL Normal 0.0-0.5 [facility] Comment on above: Performed By: #### L [id number] ####Composite Assembler: KEMAR ABEBE ([id number])[facility] (SBHLAB)[address] Eosinophils/100 WBC (Bld) 0.2 % Normal 0.0-6.0 [facility] Comment on above: Performed By: #### L [id number] ####Composite Assembler: KEMAR ABEBE ([id number])[facility] (SBHLAB)[address] Erythrocyte distribution width (RBC) [Ratio] 13.9 % Normal 11.5-15.0 [facility] Comment on above: Performed By: #### L [id number] ####Composite Assembler: KEMAR BANUELOSCER ([id number])[facility] (SBHLAB)[address] [place] [address] Hematocrit (Bld) [Volume fraction] 33.0 % Normal Male: 40.0-52.0 ; Female: 35.0-47.0 [facility] Comment on above: Performed By: #### L [id number] ####Composite Assembler: KEMAR ANDRAE ([id number])[facility] [place] [address] Hemoglobin (Bld) [Mass/Vol] 10.5 g/dL Low 11.7-18.0 [facility] Comment on above: Performed By: #### L [id number] ####Composite Assembler: KEMAR ABEBE ([id number])[facility] ([facility])[address] [place] [address] IMMATURE GRANS % 1.3 % Normal 0.0-2.0 [facility] Comment on above: Performed By: #### L [id number] ####Composite Assembler: KEMAR ABEBE ([id number])[facility] ([facility])[address] [place] [address] IMMATURE GRANS ABSOLUTE 0.2 10*3/uL High <0.1 [facility] Comment on above: Performed By: #### L [id number] ####Composite Assembler: KEMAR LUDWIGSAAD ([id number])[facility] (SBAB)[address] [place] [address] Lymphocytes (Bld) [#/Vol] 1.1 10*3/uL Normal 1.0-4.3 [facility] Comment on above: Performed By: #### L [id number] ####Composite Assembler: KEMAR ANDRAE ([id number])[facility] ([facility])[address] [place] [address] Lymphocytes/100 WBC (Bld) 8.0 % Low 15.0-45.0 [facility] Comment on above: Performed By: #### L [id number] ####Composite Assembler: KEMAR MOMINHiginioSAAD ([id number])[facility] [place] (SBHLAB)[address] MCH (RBC) [Entitic mass] 27.3 pg Normal 26.0-34.0 [facility] Comment on above: Performed By: #### L [id number] ####Composite Assembler: KEMAR ANDRAE ([id number])[facility]ITAL[facility] (SBHLAB)[address] MCHC 31.8 % Normal 30.5-36.0 [facility] Comment on above: Performed By: #### L [id number] ####Composite Assembler: KEMAR ANDRAE ([id number])[facility]ITALWarren K[facility]PERN (SBHLAB)[address] [place] [address] MCV (RBC) [Entitic vol] 85.7 fL Normal 77.0-99.0 [facility] Comment on above: Performed By: #### L [id number] ####Composite Assembler: KEMAR MOMINHiginioSAAD ([id number])[facility]ITAL[facility] (SBHLAB)[address] [place] [address] Monocytes (Bld) [#/Vol] 0.8 10*3/uL Normal 0.0-0.9 [facility] Comment on above: Performed By: #### L [id number] ####Composite Assembler: KEMAR ABEBE ([id number])[facility]ITALWar[facility] [place] (SBHLAB)[address] Monocytes/100 WBC (Bld) 5.7 % Normal 5.0-13.0 [facility] Comment on above: Performed By: #### L [id number] ####Composite Assembler: KEMAR LUDWIGSAAD ([id number])[facility] (SBHLAB)[address] NEUTROPHILS ABSOLUTE 11.4 10*3/uL High 1.8-7.5 [facility] Comment on above: Performed By: #### L [id number] ####Composite Assembler: KEMAR ABEBE ([id number])[facility] (SBHLAB)[address] Neutrophils/100 WBC (Bld) 84.7 % High 38.0-82.0 [facility] Comment on above: Performed By: #### L [id number] ####Composite Assembler: KEMAR LUDWIGSAAD ([id number])[facility] [place] (SBHLAB)[address] NRBC 0.0 /100 WBCs Normal 0.0-2.0 [facility] Comment on above: Performed By: #### L [id number] ####Composite Assembler: KEMAR LUDWIGSAAD ([id number])[facility] [place] (SBHLAB)[address] Platelet mean volume (Bld) [Entitic vol] 9.9 fL Normal 9.0-12.7 [facility] Comment on above: Performed By: #### L [id number] ####Composite Assembler: KEMAR LUDWIGSAAD ([id number])[facility]ITALWar[facility] [place] (SBHLAB)[address] Platelets (Bld) [#/Vol] 353 10*3/uL Normal 140-440 [facility] Comment on above: Performed By: #### L [id number] ####Composite Assembler: KEMAR LUDWIGSAAD ([id number])[facility]ITALWar[facility] [place] (SBHLAB)[address] RBC (Bld) [#/Vol] 3.85 10*6/uL Normal Male: 4.40-5.90; Female: 3.80-5.20 [facility] Comment on above: Performed By: #### L [id number] ####Composite Assembler: KEMAR ABEBE ([id number])[facility] [place] (SBHLAB)[address] WBC (Bld) [#/Vol] 13.4 10*3/uL High 3.6-10.7 [facility] Comment on above: Performed By: #### L [id number] ####Composite Assembler: KEMAR ABEBE ([id number])[facility] [place] (SBHLAB)[address] COMPREHENSIVE METABOLIC PANE Gigi 10-20-2024 Albumin [Mass/Vol] 2.8 g/dL Low 3.5-5.0 [facility] Comment on above: Performed By: #### L [id number], LAB17, [id number] ####Composite Assembler: KEMAR ABEBE ([id number])[facility] [place] (SBHLAB)[address] ALP [Catalytic activity/Vol] 155 U/L Normal [facility] Comment on above: Performed By: #### L [id number], LAB17, HCN430 ####Composite Assembler: KEMAR ABEBE ([id number])[facility] [place] (SBHLAB)[address] ALT [Catalytic activity/Vol] 53 U/L Normal [facility] Comment on above: Performed By: #### L [id number], LAB17, UHB101 ####Composite Assembler: EKMAR ABEBE ([id number])[facility] [place] (SBHLAB)[address] Anion gap [Moles/Vol] 14 mmol/L High 3-13 [facility] Comment on above: Performed By: #### L [id number], LAB17, EOJ528 ####Composite Assembler: KEMAR ABEBE ([id number])[facility] [place] (SBHLAB)[address] AST [Catalytic activity/Vol] 20 U/L Normal <34 [facility] Comment on above: Performed By: #### L [id number], LAB17, VNZ010 ####Composite Assembler: KEMAR ABEBE ([id number])[facility] [place] (SBHLAB)[address] Bilirubin [Mass/Vol] 0.5 mg/dL Normal <1.2 [facility] Comment on above: Performed By: #### L [id number], LAB17, RQE948 ####Composite Assembler: KEMAR ABEBE ([id number])[facility] (HLAB)[address] Calcium [Mass/Vol] 9.0 mg/dL Normal 8.4-10.2 [facility] Comment on above: Performed By: #### Elijah [address], LAB17, NHK082 ####Composite Assembler: KEMAR ABEBE ([id number])[facility] (SBHLAB)[address] Chloride [Moles/Vol] 98 mmol/L Normal 98-107 [facility] Comment on above: Performed By: #### Elijah [address], LAB17, OBN705 ####Composite Assembler: KEMAR ABEBE ([id number])[facility] (SBHLAB)[address] CO2 [Moles/Vol] 21 mmol/L Low 22-29 [facility] Comment on above: Performed By: #### Elijah RODRIGUEZ, LAB17, MUA943 ####Composite Assembler: KEMAR ABEBE ([id number])[facility] ([facility] Creatinine [Mass/Vol] 1.50 mg/dL Normal [facility] Comment on above: Performed By: #### Elijah [address], LAB17, SUM737 ####Composite Assembler: KEMAR BAEBE ([id number])[facility] ([facility])[address] GLOMERULAR FILTRATION RATE ML/MIN/1.73 SQ M.PREDICTED 40.5 mL/min/1.73m*2 Low >60.0 [facility] Comment on above: Result Comment: Calc ulation based on the Chronic Kidney Disease Epidemiology Collaboration (CKD-EPI) equation refit without adjustment for race Performed By: #### L [id number], LAB17, [id number] ####Composite Assembler: KEAMR ABEBE ([id number])[facility] ([facility])[address] [place] [address] [place] Glucose [Mass/Vol] 461 mg/dL Critically high 74-100 [address] [facility] Comment on above: Performed By: #### L [id number], LAB17, [id number] ####Composite Assembler: KEMAR ABEBE ([id number])[facility] ([facility])[address] Potassium [Moles/Vol] 3.6 mmol/L Normal 3.5-5.1 [facility] Comment on above: Result Comment: [facility] [facility] potassium values may be up to 0.5 mmol/L lower than serum values. Performed By: #### L [id number], [id number], [id number] ####Composite Assembler: KEMAR ABEBE ([id number])[facility] (SBHLAB)[address] Protein [Mass/Vol] 6.8 g/dL Normal 6.4-8.3 [facility] Comment on above: Performed By: #### L [id number], [id number], [id number] ####Composite Assembler: KEMAR ABEBE ([id number])[facility] (SBHLAB)[address] [place] [address] [place] Sodium [Moles/Vol] 133 mmol/L Low 136-145 [facility] Comment on above: Performed By: #### L [id number], [id number], [id number] ####Composite Assembler: KEMAR ABEBE ([id number])[facility] (SBHLAB)[address] [place] [address] [place] Urea nitrogen [Mass/Vol] 48 mg/dL High 9-23 [facility] Comment on above: Performed By: #### L [id number], [id number], [id number] ####Composite Assembler: KEMAR ABEBE ([id number])[facility] (SBHLAB)[address] [place] [address] [place] CRP [Mass/Vol]on 10-20-2024 Interpretation and review of laboratory results Abnormal [facility] Comprehensive metabolic 1998 panelon 10-20-2024 Albumin [Mass/Vol] 2.8 g/dL Low 3.5 - 5.0 g/dL [facility] ALP [Catalytic activity/Vol] 155 U/L [facility] ALT [Catalytic activity/Vol] 53 U/L [facility] Anion gap [Moles/Vol] 14 mmol/L High 3 - 13 mmol/L [facility] AST [Catalytic activity/Vol] 20 U/L NINF - 34 U/L [facility] Bilirubin [Mass/Vol] 0.5 mg/dL NINF - 1.2 mg/dL [facility] Calcium [Mass/Vol] 9 mg/dL 8.4 - 10. 2 mg/dL [facility] Chloride [Moles/Vol] 98 mmol/L 98 - 10 7 mmol/L [facility] CO2 [Moles/Vol] 21 mmol/L Low 22 - 29 mmol/L [facility] Creatinine [Mass/Vol] 1.5 mg/dL [facility] GFR/1.73 sq M.predicted (S/P/Bld) [Vol rate/Area] 40.5 mL/min Low - PINF [facility] Comment on above: Calculation based on the Chronic Kidney Disease Epidemiology Collaboration (CKD-EPI) equation refit without adjustment for race Glucose [Mass/Vol] 461 mg/dL Critically high 74 - 1 00 mg/dL [facility] Interpretation and review of laboratory results Abnormal [facility] Potassium [Moles/Vol] 3.6 mmol/L 3.5 - 5.1 mmol/L [facility] Comment on above: Plasma potassium helen ues may be up to 0.5 mmol/L lower than serum values. Protein [Mass/Vol] 6.8 g/dL 6.4 - 8.3 g/dL [facility] Sodium [Moles/Vol] 133 mmol/L Low 136 - 145 mmol/L [facility] Urea nitrogen [Mass/Vol] 48 mg/dL High 9 - 23 mg/dL [facility] Consulton 10-20-2024 Consult Normal [facility] IRON AND TIBCon 10-20-2024 IRON BINDING CAPACITY 187 ug/dL Low 250-450 [facility] Comment on above: Performed By: #### L [id number] ####Composite Assembler: KEMAR ABEBE ([id number])[facility] (SBHLAB)[address] IRON SATURATION 25.7 % Normal 20.0-50.0 [facility] Comment on above: Performed By: #### L [id number] ####Composite Assembler: KEMAR ABEBE ([id number])[facility] (SBHLAB)[address] IRON, TOTAL 48 ug/dL Normal [facility] Comment on above: Performed By: #### L [id number] ####Composite Assembler: KEMAR ABEBE ([id number])[facility] (SBHLAB)[address] Iron and Iron binding capaci ty panelon 10-20-2024 Interpretation and review of laboratory results Abnormal [facility] Iron [Mass/Vol] 48 ug/dL [facility] Iron binding capacity [Mass/Vol] 187 ug/dL Low 250 - 450 ug/dL [facility] Iron saturation [Mass fraction] 25.7 % 20.0 - 50.0 % [facility] Laboratory - Chemistry and C hemistry - challengeon 10-20-2024 Glucose [Mass/Vol] 260 mg/dL High 70 - 100 mg/dL [facility] Glucose [Mass/Vol] 373 mg/dL High 70 - 100 mg/dL [facility] Glucose [Mass/Vol] 445 mg/dL High 70 - 100 mg/dL [facility] Glucose [Mass/Vol] 445 mg/dL High 70 - 100 mg/dL [facility] Procalcitonin [Mass/Vol] 2 ng/mL High NINF - 0.07 ng/mL [facility] CRP [Mass/Vol] 261.6 mg/L High NINF - 5.0 mg/L [facility] Laboratory - Microbiology an d Antimicrobial susceptibilityOrdered By: Sagrario Clark on 10-20-2024 Bacteria identified Cx Nom (U) Insignificant growth based on current clinical guidelines [facility] No Panel Informationon 10-20 Interpretation and review of laboratory results Abnormal [facility] Performed by: [facility], [address] [place] [address] CLIA ID: [id number] [facility] Interpretation and review of laboratory results Abnormal [facility]: [facility], [address] [facility] [address] CLIA ID: [id number] [facility] Interpretation and review of laboratory results Abnormal [facility] Performed by: [facility], [address] [facility] [address] CLIA ID: [id number] [facility] Interpretation and review of laboratory results Abnormal [facility] Performed by: [facility], [address] [facility] [address] CLIA ID: [id number] [facility] Nursing Noteon 10-20-2024 Nursing Note Report called to [address] [place] [address] for transfer. Normal [facility] Nursing Note Notified Lisa guerrero APRN and Dr. Thomas regarding patients BS. New orders placed. Normal [facility] PROCALCITONIN TESTon 024 PROCALCITONIN 2.00 ng/mL High <0.07 [facility] Comment on above: Result Comment: MARIE Doshi COMMENTS:PCT <0.50 = Low risk of severe sepsis and/or septic shock.PCT >2.00 = High risk of severe sepsis and/or septic shock. Performed By: #### L [id number], LAB17, [id number] ####Composite Assembler: KEMAR ABEBE ([id number])[facility] (SBHLAB)[address] [place] [address] Procalcitonin [Mass/Vol]on 12-21-2023 Interpretation and review of laboratory results Abnormal [facility] PCT <0.50 = Low risk of severe sepsis and/or septic shock. PCT >2.00 = High risk of severe sepsis and/or septic shock. [facility] Progress Noteon 10-20-2024 Progress Note Normal [facility] Progress Note Normal [facility] Progress Note Normal [facility] Progress Note Normal [facility] Progress Note Nutrition rescreen completed. Patient is NPO/Clear liquid >3 days. Refer to Dietitian. Normal [facility] 30on 10-19-2024 30 Normal [facility] [id number] 10-19-2024 [id number] Normal [facility] 36on 10-19-2024 36 Needs to be seen for follow up with any provider, will need ECF to arrange transportation so that patient can be seen in office ans no longer available to manage over the phone Normal [facility] CBC W Auto Differential pane l (Bld)on 10-19-2024 Erythrocyte distribution width (RBC) [Ratio] 14.5 % 11.5 - 15.0 % [facility] Hematocrit (Bld) [Volume fraction] 34.4 % Male: 40.0-52.0 ; Female: 35.0-47.0 [facility] Hemoglobin (Bld) [Mass/Vol] 10.9 g/dL Low 11.7 - 18.0 g/dL [facility] MCH (RBC) [Entitic mass] 27.7 pg 26.0 - 34.0 pg [facility] MCHC (RBC) [Mass/Vol] 31.7 % 30.5 - 36.0 % [facility] MCV (RBC) [Entitic vol] 87.3 fL 77.0 - 99.0 fL [facility] Platelet mean volume (Bld) [Entitic vol] 9.6 fL 9.0 - 12.7 fL [facility] Platelets (Bld) [#/Vol] 339 10*3/uL 140 - 440 10*3/uL [facility] RBC (Bld) [#/Vol] 3.94 10*6/uL Male: 4.40-5.90; Female: 3.80-5.20 [facility] WBC (Bld) [#/Vol] 21.8 10*3/uL High 3.6 - 10.7 10*3/uL [facility] CBC WITH AUTO DIFFERENTIALon 10-19-2024 Erythrocyte distribution width (RBC) [Ratio] 14.5 % Normal 11.5-15.0 [facility] Comment on above: Performed By: #### L [id number], [id number] ####Composite Assembler: KEMAR ABEBE ([id number])[facility] (SBHLAB)[address] Hematocrit (Bld) [Volume fraction] 34.4 % Normal Male: 40.0-52.0 ; Female: 35.0-47.0 [facility] Comment on above: Performed By: #### L [id number], [id number] ####Composite Assembler: KEMAR AEBBE ([id number])[facility] (SBHLAB)[address] Hemoglobin (Bld) [Mass/Vol] 10.9 g/dL Low 11.7-18.0 [facility] Comment on above: Performed By: #### L [id number], [id number] ####Composite Assembler: KEMAR ABEBE ([id number])[facility] (SBHLAB)[address] [place] [address] MCH (RBC) [Entitic mass] 27.7 pg Normal 26.0-34.0 [facility] Comment on above: Performed By: #### L [id number], [id number] ####Composite Assembler: KEMAR ABEBE ([id number])[facility] (SBHLAB)[address] [place] [address] MCHC 31.7 % Normal 30.5-36.0 [facility] Comment on above: Performed By: #### L [id number], [id number] ####Composite Assembler: KEMAR ABEBE ([id number])[facility] (SBHLAB)[address] [place] [address] MCV (RBC) [Entitic vol] 87.3 fL Normal 77.0-99.0 S [facility] Comment on above: Performed By: #### L [id number], [id number] ####Composite Assembler: KEMAR ABEBE ([id number])[facility] (SBHLAB)[address] Platelet mean volume (Bld) [Entitic vol] 9.6 fL Normal 9.0-12.7 [facility] Comment on above: Performed By: #### L [id number], [id number] ####Composite Assembler: KEMAR ABEBE ([id number])[facility] (SBHLAB)[address] Platelets (Bld) [#/Vol] 339 10*3/uL Normal 140-440 [facility] Comment on above: Performed By: #### L [id number], [id number] ####Composite Assembler: KEMAR ABEBE ([id number])[facility] (SBHLAB)[address] RBC (Bld) [#/Vol] 3.94 10*6/uL Normal Male: 4.40-5.90; Female: 3.80-5.20 [facility] Comment on above: Performed By: #### L [id number], [id number] ####Composite Assembler: KEMAR ABEBE ([id number])[facility] (SBHLAB)[address] WBC (Bld) [#/Vol] 21.8 10*3/uL High 3.6-10.7 [facility] Comment on above: Performed By: #### L [id number], [id number] ####Composite Assembler: KEMAR ABEBE ([id number])[facility]ITAL[facility]ITALE[facility] (SBHLAB)[address] [place] [address] COMPREHENSIVE METABOLIC PANE Gigi 10-19-2024 Albumin [Mass/Vol] 2.8 g/dL Low 3.5-5.0 [facility] Comment on above: Performed By: #### L AB17 ####Composite Assembler: KEMAR ABEBE ([id number])[facility] (SBHLAB)[address] ALP [Catalytic activity/Vol] 151 U/L Normal [facility] Comment on above: Performed By: #### L AB17 ####Composite Assembler: KEMAR ABEBE ([id number])[facility] (SBHLAB)[address] ALT [Catalytic activity/Vol] 83 U/L Normal [facility] Comment on above: Performed By: #### L AB17 ####Composite Assembler: KEMAR ABEBE ([id number])[facility] (SBHLAB)[address] Anion gap [Moles/Vol] 11 mmol/L Normal 3-13 [facility] Comment on above: Performed By: #### L AB17 ####Composite Assembler: KEMAR ABEBE ([id number])[facility] (SBHLAB)[address] AST [Catalytic activity/Vol] 50 U/L High <34 [facility] Comment on above: Performed By: #### L AB17 ####Composite Assembler: KEMAR ABEBE ([id number])[facility] ([facility] Bilirubin [Mass/Vol] 0.8 mg/dL Normal <1.2 [facility] Comment on above: Performed By: #### L AB17 ####Composite Assembler: KEMAR ABEBE ([id number])[facility] ([facility])[address] Calcium [Mass/Vol] 8.9 mg/dL Normal 8.4-10.2 [facility] Comment on above: Performed By: #### L AB17 ####Composite Assembler: KEMAR ABEBE ([id number])[facility] ([facility])[address] [place] [address] [place] Chloride [Moles/Vol] 102 mmol/L Normal 98-107 [facility] Comment on above: Performed By: #### L AB17 ####Composite Assembler: KEMAR ABEBE ([id number])[facility] (HLAB)[address] [place] [address] [place] CO2 [Moles/Vol] 22 mmol/L Normal 22-29 [facility] Comment on above: Performed By: #### L AB17 ####Composite Assembler: KEMAR ABEBE ([id number])[facility] (SBHLAB)[address] Creatinine [Mass/Vol] 1.15 mg/dL Normal [facility] Comment on above: Performed By: #### L AB17 ####Composite Assembler: KEMAR ABEBE ([id number])[facility]ITALA [facility] (SBHLAB)[address] [place] [address] [place] GLOMERULAR FILTRATION RATE ML/MIN/1.73 SQ M.PREDICTED 55.7 mL/min/1.73m*2 Low >60.0 [facility] Comment on above: Result Comment: Calc ulation based on the Chronic Kidney Disease Epidemiology Collaboration (CKD-EPI) equation refit without adjustment for race Performed By: #### L AB17 ####Composite Assembler: KEMAR ABEBE ([id number])[facility] (SBHLAB)[address] Glucose [Mass/Vol] 223 mg/dL High 74-100 [facility] Comment on above: Performed By: #### L AB17 ####Composite Assembler: KEMAR ABEBE ([id number])[facility] (SBHLAB)[address] Potassium [Moles/Vol] 3.6 mmol/L Normal 3.5-5.1 [facility] Comment on above: Result Comment: [facility] potassium values may be up to 0.5 mmol/L lower than serum values. Performed By: #### L AB17 ####Composite Assembler: KEMAR ABEBE ([id number])[facility] [place] (SBHLAB)[address] [place] [address] [place] Protein [Mass/Vol] 6.5 g/dL Normal 6.4-8.3 [facility] Comment on above: Performed By: #### L AB17 ####Composite Assembler: KEMAR ABEBE ([id number])[facility] (SBHLAB)[address] [place] [address] [place] Sodium [Moles/Vol] 135 mmol/L Low 136-145 [facility] Comment on above: Performed By: #### L AB17 ####Composite Assembler: KEMAR ABEBE ([id number])[facility]ITAL[facility] (SBHLAB)[address] Urea nitrogen [Mass/Vol] 32 mg/dL High 9-23 [facility] Comment on above: Performed By: #### L AB17 ####Composite Assembler: KEMAR ABEBE ([id number])[facility] (SBHLAB)[address] CULTURE ANAEROBICon 10-19-20 24 CULTURE ANAEROBIC Normal [facility] Comment on above: Performed By: #### L [id number] ####Composite Assembler: MARCELA LUCERO ([id number])[facility] ([facility])[address] [place] [address] CULTURE ANAEROBIC Normal [facility] Comment on above: Order Comment: Colle cted during drain placement Performed By: #### L [id number] ####Composite Assembler: MARCELA LUCERO ([id number])[facility] ([facility])[address] [place] [address] CULTURE, AEROBIC BACTERIA WI TH GRAM STAINon 10-19-2024 CULTURE, AEROBIC BACTERIA WITH GRAM STAIN Normal [facility] Comment on above: Performed By: #### L [id number] ####Composite Assembler: MARCELA LUCERO ([id number])[facility] ([facility])[address] [place] [address] CULTURE, AEROBIC BACTERIA WITH GRAM STAIN Normal [facility] Comment on above: Order Comment: Colle cted during drain placement Performed By: #### L [id number] ####Composite Assembler: MARCELA LUCERO ([id number])[facility] ([facility])[address] [place] [address] Comprehensive metabolic 1998 panelon 10-19-2024 Albumin [Mass/Vol] 2.8 g/dL Low 3.5 - 5.0 g/dL [facility] ALP [Catalytic activity/Vol] 151 U/L [facility] ALT [Catalytic activity/Vol] 83 U/L [facility] Anion gap [Moles/Vol] 11 mmol/L 3 - 13 mmol/L [facility] AST [Catalytic activity/Vol] 50 U/L High NINF - 34 U/L [facility] Bilirubin [Mass/Vol] 0.8 mg/dL NINF - 1.2 mg/dL [facility] Calcium [Mass/Vol] 8.9 mg/dL 8.4 - 10. 2 mg/dL [facility] Chloride [Moles/Vol] 102 mmol/L 98 - 10 7 mmol/L [facility] CO2 [Moles/Vol] 22 mmol/L 22 - 29 mmol/L [facility] Creatinine [Mass/Vol] 1.15 mg/dL [facility] GFR/1.73 sq M.predicted (S/P/Bld) [Vol rate/Area] 55.7 mL/min Low - PINF [facility] Comment on above: Calculation based on the Chronic Kidney Disease Epidemiology Collaboration (CKD-EPI) equation refit without adjustment for race Glucose [Mass/Vol] 223 mg/dL High 74 - 100 mg/dL [facility] Interpretation and review of laboratory results Abnormal [facility] Potassium [Moles/Vol] 3.6 mmol/L 3.5 - 5.1 mmol/L [facility] Comment on above: Plasma potassium helen ues may be up to 0.5 mmol/L lower than serum values. Protein [Mass/Vol] 6.5 g/dL 6.4 - 8.3 g/dL [facility] Sodium [Moles/Vol] 135 mmol/L Low 136 - 145 mmol/L [facility] Urea nitrogen [Mass/Vol] 32 mg/dL High 9 - 23 mg/dL [facility] Consulton 10-19-2024 Consult Normal [facility] Consult Normal [facility] Consult Normal [facility] Consult Normal [facility] HEMOGLOBIN A1Con 10-19-2024 Glucose [Mass/Vol] 151 mg/dL Normal [facility] Comment on above: Result Comment: MARIE R COMMENTS:HbA1c values of 5.7-6.4 percent indicate an increased risk for developing diabetes mellitus. HbA1c values greater than or equal to 6.5 percent are diagnostic of diabetes mellitus. For diagnosis of diabetes in individuals without unequivocal hyperglycemia, results should be confirmed by repeat testing. Performed By: #### L AB90 ####Composite Assembler: KEMAR ABEBE ([id number])[facility] (SBHLAB)[address] HEMOGLOBIN A1C 6.9 %HbA1C High <5.7 [facility] Comment on above: Result Comment: Norm al less than 5.7%Prediabetes 5.7% to 6.4%Diabetes 6.5% or higher--HgbA1C levels may not be accurate in patients who have renal disease, received recent blood transfusions, are anemic, or who have dyshemoglobinemia. Performed By: #### L AB90 ####Composite Assembler: KEMAR LUDWIGSAAD ([id number])[facility] (SBAB)[address] Laboratory - Chemistry and C hemistry - challengeon 10-19-2024 Glucose [Mass/Vol] 396 mg/dL High 70 - 100 mg/dL [facility] Glucose [Mass/Vol] 374 mg/dL High 70 - 100 mg/dL [facility] Average glucose Estimated from glycated hemoglobin (Bld) [Mass/Vol] 151 mg/dL [facility] Glucose [Mass/Vol] 336 mg/dL High 70 - 100 mg/dL [facility] Glucose [Mass/Vol] 299 mg/dL High 70 - 100 mg/dL [facility] Glucose [Mass/Vol] 207 mg/dL High 70 - 100 mg/dL [facility] Laboratory - Coagulationon 1 12-20-2023 PT Coag (Bld) [Time] 14 s High 9.0 - 1 2.0 s [facility] Laboratory - Hematology and Cell countson 10-19-2024 HbA1c (Bld) [Mass fraction] 6.9 % High NINF [facility] Comment on above: Normal less than 5.7 % Prediabetes 5.7% to 6.4% Diabetes 6.5% or higher --HgbA1C levels may not be accurate in patients who have renal disease, received recent blood transfusions, are anemic, or who have dyshemoglobinemia. Lymphocytes (Bld) [#/Vol] 2.2 10*3/uL 1.0 - 4.3 10*3/uL [facility] Lymphocytes/100 WBC (Bld) 10 % Low 15 - 45 % [facility] Monocytes (Bld) [#/Vol] 0.2 10*3/uL 0.0 - 0.9 10*3/uL [facility] Monocytes/100 WBC (Bld) 1 % Low 5 - 13 % S [facility] Neutrophils (Bld) [#/Vol] 19.4 10*3/uL High 1.8 - 7.5 10*3/uL [facility] RBC morphology finding Nom (Bld) Normal [facility] Segmented neutrophils/100 WBC (Bld) 89 % High 38 - 82 % [facility] Lower GI hemoglobin spec 1 I A Ql (Stl)Ordered By: Debbie Kearns on 10-19-2024 Fecal occult blood Positive Abnormal Negative [facility] Interpretation and review of laboratory results Abnormal [facility] Methodology: Immunoassay [facility] MANUAL DIFFERENTIAL (CELLAVI DORIAN)on 10-19-2024 BAND NEUTROPHILS TOTAL PER COUNTED LEUKOCYTES BY MANUAL COUNT Comment on above: Performed By: #### L [id number], [id number] ####Composite Assembler: KEMAR ABEBE ([id number])[facility] [place] (SBHLAB)[address] [place] [address] [place] BASOPHILS TOTAL PER COUNTED LEUKOCYTES BY MANUAL COUNT Normal [facility] Comment on above: Performed By: #### L [id number], [id number] ####Composite Assembler: KEMAR ABEBE ([id number])[facility] [place] (SBHLAB)[address] [place] [address] [place] BLASTS TOTAL PER COUNTED LEUKOCYTES BY MANUAL COUNT Normal [facility] Comment on above: Performed By: #### L [id number], [id number] ####Composite Assembler: KEMAR ABEBE ([id number])[facility] [place] (SBHLAB)[address] [place] [address] [place] EOSINOPHILS TOTAL PER COUNTED LEUKOCYTES BY MANUAL COUNT Normal [facility] Comment on above: Performed By: #### L [id number], [id number] ####Composite Assembler: KEMAR ABEBE ([id number])[facility] [place] (SBHLAB)[address] [place] [address] [place] LYMPHOCYTES (10*3/UL) IN BLOOD-CELLAVISION 2.2 10*3/uL Normal 1.0-4.3 [facility] Comment on above: Performed By: #### L [id number], [id number] ####Composite Assembler: KEMAR ABEBE ([id number])[facility] [place] (SBHLAB)[address] LYMPHOCYTES TOTAL PER COUNTED LEUKOCYTES BY MANUAL COUNT 10 Normal [facility] Comment on above: Performed By: #### L [id number], [id number] ####Composite Assembler: KEMAR ABEBE ([id number])[facility] [place] (SB[facility])[address] [place] [address] [place] LYMPHOCYTES/100 LEUKOCYTES IN BLOOD-CELLAVISION 10 % Low 15-45 [facility] Comment on above: Performed By: #### L [id number], [id number] ####Composite Assembler: KEMAR ABEBE ([id number])[facility] [place] (SBHLAB)[address] METAMYELOCYTES TOTAL PER COUNTED LEUKOCYTES BY MANUAL COUNT Comment on above: Performed By: #### L [id number], [id number] ####Composite Assembler: KEMAR ABEBE ([id number])[facility] [place] ([facility])[address] [place] [address] [place] MONOCYTES (10*3/UL) IN BLOOD-CELLAVISION 0.2 10*3/uL Normal 0.0-0.9 [facility] Comment on above: Performed By: #### L [id number], [id number] ####Composite Assembler: KEMAR ABEBE ([id number])[facility] [place] ([facility])[address] [place] [address] [place] MONOCYTES TOTAL PER COUNTED LEUKOCYTES BY MANUAL COUNT 1 Comment on above: Performed By: #### L [id number], [id number] ####Composite Assembler: KEMAR ABEBE ([id number])[facility] [place] ([facility])[address] [place] [address] [place] MONOCYTES/100 LEUKOCYTES IN BLOOD-SOY 1 % Low 5-13 [facility] Comment on above: Performed By: #### L [id number], [id number] ####Composite Assembler: KEMAR ABEBE ([id number])[facility] [place] (SBHLAB)[address] [place] [address] [place] MYELOCYTES COUNTED BY MANUAL COUNT Comment on above: Performed By: #### L [id number], [id number] ####Composite Assembler: KEMAR ABEBE ([id number])[facility] [place] ([facility])[address] [place] [address] [place] NEUTROPHILS TOTAL PER COUNTED LEUKOCYTES BY MANUAL COUNT 89 Normal [facility] Comment on above: Performed By: #### L [id number], [id number] ####Composite Assembler: KEMAR ABEBE ([id number])[facility] [place] ([facility])[address] [place] [address] [place] PROMYELOCYTES TOTAL PER COUNTED LEUKOCYTES BY MANUAL COUNT Comment on above: Performed By: #### L [id number], [id number] ####Composite Assembler: KEMAR ABEBE ([id number])[facility] [place] ([facility])[address] [place] [address] [place] RBC MORPHOLOGY IN BLOOD Normal Normal [facility] Comment on above: Performed By: #### L [id number], [id number] ####Composite Assembler: KEMAR ABEBE ([id number])[facility] [place] ([facility])[address] [place] [address] [place] SEGMENTED NEUTROPHILS (10*3/UL) IN BLOOD-CELLAVISION 19.4 10*3/uL High 1.8-7.5 [facility] Comment on above: Performed By: #### L [id number], [id number] ####Composite Assembler: KEMAR ABEBE ([id number])[facility] [place] ([facility])[address] [place] [address] [place] SEGMENTED NEUTROPHILS/100 LEUKOCYTES-CE 89 % High 38-82 [facility] Comment on above: Performed By: #### L [id number], [id number] ####Composite Assembler: KEMAR ABEBE ([id number])[facility] (SBHLAB)[address] [place] [address] UNCLASSIFIED CELLS TOTAL PER COUNTED LEUKOCYTES BY MANUAL COUNT Normal [facility] Comment on above: Performed By: #### L [id number], [id number] ####Composite Assembler: KEMAR ABEBE ([id number])[facility] (SBHLAB)[address] [place] [address] VARIANT LYMPHOCYTES TOTAL PER COUNTED LEUKOCYTES BY MANUAL COUNT Normal [facility] Comment on above: Performed By: #### L [id number], [id number] ####Composite Assembler: KEMAR LUDWIGSAAD ([id number])[facility] (SBHLAB)[address] [place] [address] No Panel Informationon 10-19 Interpretation and review of laboratory results Abnormal [facility] Performed by: [facility], [address] [place] [address] CLIA ID: [id number] [facility] Interpretation and review of laboratory results Abnormal [facility] Performed by: [facility], [address] [place] [address] CLIA ID: [id number] [facility] Interpretation and review of laboratory results Abnormal [facility] HbA1c values of 5.7- 6.4 percent indicate an increased risk for developing diabetes mellitus. HbA1c values greater than or equal to 6.5 percent are diagnostic of diabetes mellitus. For diagnosis of diabetes in individuals without unequivocal hyperglycemia, results should be confirmed by repeat testing. [facility] [employer] [facility] Interpretation and review of laboratory results Abnormal [facility] Performed by: [facility], [address] [place] [address] CLIA ID: [id number] [facility] Interpretation and review of laboratory results Abnormal [facility] Performed by: [facility], [address] [place] [address] CLIA ID: [id number] [facility] Atypical Lymphocytes Manual [facility] Bands Manual [facility] Basophils Manual [facility] Blasts Manual [facility] Eosinophils Manual [facility] Interpretation and review of laboratory results Abnormal [facility] Lymphocytes Manual 10 [facility] Metamyelocytes Manual [facility] Monocytes Manual 1 [facility] Myelocytes Manual [facility] Neutrophils Manual 89 [facility] Promyelocytes Manual [facility] Unclassified Cells, Manual [facility] Interpretation and review of laboratory results Abnormal [facility] Performed by: [facility], [address] [address] CLIA ID: [id number] [facility] OCCULT BLOOD, STOOLon 2023 OCCULT BLOOD, STOOL FECAL OCCULT, STOOL (A) Reference Positive Negative ORDER COMMENTS: (A) Methodology: Immunoassay Normal [facility] Comment on above: Performed By: #### L [id number] ####Composite Assembler: KEMAR ABEBE ([id number])[facility] ([facility])[address] [place] [address] PROTHROMBIN TIMEon INR Coag (PPP) [Relative time] 1.3 {INR} High 0.9-1.1 [facility] Comment on above: Result Comment: Ubaldo [...] Myocardial Infarction Performed By: #### L [id number] ####Composite Assembler: KEMAR ABEBE ([id number])[facility] [facility] PT Coag (PPP) [Time] 14.0 s High 9.0-12.0 [facility] Comment on above: Performed By: #### L [id number] ####Composite Assembler: KEMAR ABEBE ([id number])[facility] (SBAB)[address] PT Coag (Bld) [Time]on 10-19 INR Coag (PPP) [Relative time] 1.3 {INR} High 0.9 - 1.1 [facility] Comment on above: Recommended Anticoag ulant Therapy: [...] Interpretation and review of laboratory results Abnormal [facility] Progress Noteon 10-19-2024 Progress Note Normal [facility] Progress Note Normal [facility] US GUIDED PERCUTANEOUS PERIT HARRY OR RETROPERITONEAL FLUID COLLECTION DRAINAGEon 10-19-2024 US GUIDED PERCUTANEOUS PERITONEAL OR RETROPERITONEAL FLUID COLLECTION DRAINAGE Normal [facility] US Guidance for biopsy of Un specified body regionon 10-19-2024 Successful placement of a drainage catheter into the gallbladder using ultrasound guidance. Report Dictated on Electronically Signed By: Alfredito Baumann MD Electronically Signed Date/Time: 10/19/2024 2:22 PM [facility] Patient [...] advanced. Subcutaneous tract was dilated. An 8 Malagasy drainage catheter advanced over the wire. The catheter was attached to a bag. A dressing was applied. [facility] Alfredito Baumann MD - 10/19/2024 Patient Name: WILL JACINTO : 1965 [facility]#: [id number] Exam Date/Time: 10/19/2024 13:34 Procedure: US GUIDED [...] advanced. Subcutaneous tract was dilated. An 8 Malagasy drainage catheter advanced over the wire. The catheter was attached to a bag. A dressing was applied. IMPRESSION: Successful placement of a drainage catheter into the gallbladder using ultrasound guidance. Report Dictated on Electronically Signed By: Alfredito Baumann MD Electronically Signed Date/Time: 10/19/2024 2:22 PM EST [facility] Radiology Study observation (narrative) [facility] US Guidance for biopsy of Un specified body regionOrdered By: Alfredito Baumann on 10-19-2024 [facility] [employer] Work Phone: Urinalysis complete panel (U )Ordered By: Jyoti Cartwright on 10-19-2024 Amorphous Crystals, Urine Few Abnormal Negative /HPF [facility] Bacteria LM.HPF (Urine sed) [#/Area] Few Abnormal Negative /HPF [facility] Bilirubin Ql (U) Negative Negative mg/dL [facility] Clarity (U) Turbid Abnormal Clear [facility] Color (U) Yellow Lt. Yellow [facility] Epithelial cells.squamous LM.HPF (Urine sed) [#/Area] 0-2 [facility] Glucose Ql (U) Normal Normal (<70) mg/dL [facility] Granular casts LM.HPF (Urine sed) [#/Area] 3-5 Abnormal Negative /LPF [facility] Hemoglobin Ql (U) 0.2 mg/dL Abnormal Negative [facility] Hyaline casts Auto (Urine sed) [#/Area] 3-5 Abnormal Negative /LPF [facility] Interpretation and review of laboratory results Abnormal [facility] Ketones (U) [Mass/Vol] Negative Negat bernard mg/dL [facility] Leukocyte clumps LM.HPF (Urine sed) [#/Area] Rare Abnormal Negative /HPF [facility] Leukocyte esterase Test strip Ql (U) 500 Abnormal Negative Kat/uL [facility] Mucus LM.HPF (Urine sed) [#/Area] Few Negative /LPF [facility] Nitrite Ql (U) Negative Negative [facility] Non-Squamous Epithalial Cells, Urine 0-2 Abnormal Negative /HPF [facility] pH (U) 5.5 [pH] 5.0 - 8.0 pH [facility] Protein (U) [Mass/Vol] 50 mg/dL Abnormal Negative [facility] RBC LM.HPF (Urine sed) [#/Area] 11-25 Abnormal [facility] Specific gravity (U) [Rel density] High 1.005 - 1.030 [facility] Urobilinogen (U) [Mass/Vol] Normal Normal (0-1) mg/dL [facility] WBC LM.HPF (Urine sed) [#/Area] 51-100 Abnormal [facility] CBC W Auto Differential pane l (Bld)Ordered By: Silvia Bone on 10-18-2024 Erythrocyte distribution width (RBC) [Ratio] 14.5 % 11.5 - 15.0 % [facility] Hematocrit (Bld) [Volume fraction] 36.8 % Male: 40.0-52.0 ; Female: 35.0-47.0 [facility] Hemoglobin (Bld) [Mass/Vol] 11.6 g/dL Low 11.7 - 18.0 g/dL [facility] Interpretation and review of laboratory results Abnormal [facility] MCH (RBC) [Entitic mass] 27.1 pg 26.0 - 34.0 pg [facility] MCHC (RBC) [Mass/Vol] 31.5 % 30.5 - 36.0 % [facility] MCV (RBC) [Entitic vol] 86 fL 77.0 - 99.0 fL [facility] Platelet mean volume (Bld) [Entitic vol] 9.8 fL 9.0 - 12.7 fL [facility] Platelets (Bld) [#/Vol] 373 10*3/uL 140 - 440 10*3/uL [facility] RBC (Bld) [#/Vol] 4.28 10*6/uL Male: 4.40-5.90; Female: 3.80-5.20 [facility] WBC (Bld) [#/Vol] 25.9 10*3/uL High 3.6 - 10.7 10*3/uL [facility] CBC WITH AUTO DIFFERENTIALon 10-18-2024 Erythrocyte distribution width (RBC) [Ratio] 14.5 % Normal 11.5-15.0 [facility] Comment on above: Performed By: #### L [id number], [id number] ####Composite Assembler: KEMAR ABEBE ([id number])[facility] ([address] Hematocrit (Bld) [Volume fraction] 36.8 % Normal Male: 40.0-52.0 ; Female: 35.0-47.0 [facility] Comment on above: Performed By: #### L [id number], [id number] ####Composite Assembler: KEMAR ABEBE ([id number])[facility] ([facility])[address] [place] [address] Hemoglobin (Bld) [Mass/Vol] 11.6 g/dL Low 11.7-18.0 [facility] Comment on above: Performed By: #### L [id number], [id number] ####Composite Assembler: KEMAR [id number])[facility]ITAL[facility] (SBHLAB)[address] MCH (RBC) [Entitic mass] 27.1 pg Normal 26.0-34.0 [facility] Comment on above: Performed By: #### L [id number], [id number] ####Composite Assembler: KEMAR ANDRAE ([id number])[facility] (SBHLAB)[address] MCHC 31.5 % Normal 30.5-36.0 [facility] Comment on above: Performed By: #### L [id number], [id number] ####Composite Assembler: KEMAR ANDRAE ([id number])[facility] (SBHLAB)[address] MCV (RBC) [Entitic vol] 86.0 fL Normal 77.0-99.0 S [facility] Comment on above: Performed By: #### L [id number], [id number] ####Composite Assembler: KEMAR LUDWIGSAAD ([id number])[facility] (SBHLAB)[address] Platelet mean volume (Bld) [Entitic vol] 9.8 fL Normal 9.0-12.7 [facility] Comment on above: Performed By: #### L [id number], [id number] ####Composite Assembler: KEMAR ABEBE ([id number])[facility] (SBHLAB)[address] Platelets (Bld) [#/Vol] 373 10*3/uL Normal 140-440 [facility] Comment on above: Performed By: #### L [id number], [id number] ####Composite Assembler: KEMAR LUDWIGSAAD ([id number])[facility] (SBHLAB)[address] RBC (Bld) [#/Vol] 4.28 10*6/uL Normal Male: 4.40-5.90; Female: 3.80-5.20 [facility] Comment on above: Performed By: #### L [id number], [id number] ####Composite Assembler: KEMAR ABEBE ([id number])[facility] [place] (SB[facility])[address] [place] [address] WBC (Bld) [#/Vol] 25.9 10*3/uL High 3.6-10.7 [facility] Comment on above: Performed By: #### L [id number], [id number] ####Composite Assembler: KEMAR ABEBE ([id number])[facility] [place] ([facility])[address] COMPLETE URINALYSISon 2023 AMORPHOUS CRYSTALS (#/HPF) IN URINE Few Abnormal Negative [facility] Comment on above: Performed By: #### L [id number] ####Composite Assembler: MARCELA LUCERO ([id number])[facility] ([facility])[address] [place] [address]#### [id number] ####Composite Assembler: KEMAR ABEBE ([id number])[facility] [place] ([facility])[address] [place] [address] BACTERIA (#/HPF) IN URINE Few Abnormal Negative [facility] Comment on above: Performed By: #### L AB239 ####Composite Assembler: MARCELA LUCERO ([id number])[facility] ([facility])[address] [place] [address]#### [id number] ####Composite Assembler: KEMAR ABEBE ([id number])[facility] [place] (SB[facility])[address] [place] [address] BILIRUBIN, TOTAL PRESENCE IN URINE Negative Normal Negative [facility] Comment on above: Performed By: #### L AB239 ####Composite Assembler: MARCELA LUCERO ([id number])[facility] ([facility])[address] [place] [address]#### [id number] ####Composite Assembler: KEMAR ABEBE ([id number])[facility] [place] (SB[facility])[address] Clarity (U) Turbid Abnormal Clear [facility] Comment on above: Performed By: #### L [id number] ####Composite Assembler: MARCELA LUCERO ([id number])[facility] ([facility])[address] [place] [address]#### [id number] ####Composite Assembler: KEMAR ABEBE ([id number])[facility] (SB[facility])[address] [place] [address] Color (U) Yellow Normal Lt. Yellow [facility] Comment on above: Performed By: #### L [id number] ####Composite Assembler: MARCELA LUCERO ([id number])[facility] ([facility])[address] [place] [address]#### [id number] ####Composite Assembler: KEMAR ABEBE ([id number])[facility] (SBHLAB)[address] [place] [address] GLUCOSE (MG/DL) IN URINE Normal Normal Normal (<70) [facility] Comment on above: Performed By: #### L [id number] ####Composite Assembler: MARCELA LUCERO ([id number])[facility] ([facility])[address] [place] [address]#### [id number] ####Composite Assembler: KEMAR ABEBE ([id number])[facility] (SB[facility])[address] [place] [address] GRANULAR CASTS (#/LPF) IN URINE 3-5 Abnormal Negative [facility] Comment on above: Performed By: #### L AB239 ####Composite Assembler: MARCELA LUCERO ([id number])[facility] ([facility])[address] [place] [address]#### [id number] ####Composite Assembler: KEMAR ABEBE ([id number])[facility] (SBHLAB)[address] [place] [address] HEMOGLOBIN PRESENCE IN URINE 0.2 mg/dL Abnormal Negative [facility] Comment on above: Performed By: #### L AB239 ####Composite Assembler: MARCELA LUCERO ([id number])[facility] ([facility])[address] [place] [address]#### [id number] ####Composite Assembler: KEMAR ABEBE ([id number])[facility] [place] (SB[facility])[address] [place] [address] HYALINE CASTS (#/LPF) IN URINE SEDIMENT BY MICROSCOPY 3-5 Abnormal Negative [facility] Comment on above: Performed By: #### L [id number] ####Composite Assembler: MARCELA LUCERO ([id number])[facility] ([facility])[address] [place] [address]#### [id number] ####Composite Assembler: KEMAR ABEBE ([id number])[facility] (SB[facility])[address] [place] [address] Ketones Ql (U) Negative Normal Negative [facility] Comment on above: Performed By: #### L AB239 ####Composite Assembler: MARCELA LUCERO ([id number])[facility] ([facility])[address] [place] [address]#### [id number] ####Composite Assembler: KEMAR ABEBE ([id number])[facility] (SBHLAB)[address] [place] [address] LEUKOCYTE ESTERASE PRESENCE IN URINE BY TEST STRIP 500 Kat/uL Abnormal Negative [facility] Comment on above: Performed By: #### L [id number] ####Composite Assembler: MARCELA LUCERO ([id number])[facility] ([facility])[address] [place] [address]#### [id number] ####Composite Assembler: KEMAR ABEBE ([id number])[facility] [place] (SBHLAB)[address] [place] [address] MUCUS (#/LPF) IN URINE SEDIMENT Few Normal Negative [facility] Comment on above: Performed By: #### L [id number] ####Composite Assembler: MARCELA LUCERO ([id number])[facility] ([facility])[address] [place] [address]#### [id number] ####Composite Assembler: KEMAR ABEBE ([id number])[facility] ([facility])[address] [place] [address] NITRITE PRESENCE IN URINE Negative Normal Negative [facility] Comment on above: Performed By: #### L [id number] ####Composite Assembler: MARCELA LUCERO ([id number])[facility] ([facility])[address] [place] [address]#### [id number] ####Composite Assembler: KEMAR ABEBE ([id number])[facility] ([facility])[address] [place] [address] NON-SQUAMOUS EPITHELIAL (#/HPF) IN URINE 0-2 Abnormal Negative [facility] Comment on above: Performed By: #### L [id number] ####Composite Assembler: MARCELA LUCERO ([id number])[facility] ([facility])[address] [place] [address]#### [id number] ####Composite Assembler: KEMAR ABEBE ([id number])[facility] ([facility])[address] [place] [address] pH (U) 5.5 [pH] Normal 5.0-8.0 [facility] Comment on above: Performed By: #### L AB239 ####Composite Assembler: MARCELA LUCERO ([id number])[facility] ([facility])[address] [place] [address]#### [id number] ####Composite Assembler: KEMAR ABEBE ([id number])[facility] ([facility])[address] [place] [address] Protein (U) [Mass/Vol] 50 mg/dL Abnormal Negative [facility] Comment on above: Performed By: #### L [id number] ####Composite Assembler: MARCELA LUCERO ([id number])[facility] ([facility])[address] [place] [address]#### [id number] ####Composite Assembler: KEMAR ABEBE ([id number])[facility] ([facility])[address] [place] [address] RBC (#/HPF) IN URINE SEDIMENT 11-25 Abnormal 0-2 [facility] Comment on above: Performed By: #### L AB239 ####Composite Assembler: MARCELA LUCERO ([id number])[facility] ([facility])[address] [place] [address]#### [id number] ####Composite Assembler: KEMAR ABEBE ([id number])[facility] ([facility])[address] [place] [address] Specific gravity (U) [Rel density] >1.030 High 1.005-1.030 [facility] Comment on above: Performed By: #### L AB239 ####Composite Assembler: MARCELA LUCERO ([id number])[facility] ([facility])[address] [place] [address]#### [id number] ####Composite Assembler: KEMAR ABEBE ([id number])[facility] ([facility])[address] [place] [address] SQUAMOUS EPITHELIAL CELLS (#/HPF) IN URINE SEDIMENT 0-2 Normal 3-5 [facility] Comment on above: Performed By: #### L AB239 ####Composite Assembler: MARCELA LUCERO ([id number])[facility] ([facility])[address] [place] [address]#### [id number] ####Composite Assembler: KEMAR ABEBE ([id number])[facility] ([facility])[address] [place] [address] UROBILINOGEN (MG/DL) IN URINE Normal Normal Normal (0-1) [facility] Comment on above: Performed By: #### L AB239 ####Composite Assembler: MARCELA LUCERO ([id number])[facility] ([facility])[address] [place] [address] [place]#### [id number] ####Composite Assembler: KEMAR ABEBE ([id number])[facility] [place] (SB[facility])[address] WBC (LEUKOCYTE) (#/HPF) IN URINE SEDIMENT 51-100 Abnormal 0-5 [facility] [facility] Comment on above: Performed By: #### L [id number] ####Composite Assembler: MARCELA LUCERO ([id number])[facility] (SACLAB)[address]#### [id number] ####Composite Assembler: KEMAR ABEBE ([id number])[facility] [place] (SBHLAB)[address] WBC (LEUKOCYTE) CLUMPS (#/HPF) IN URINE SEDIMENT Rare Abnormal Negative [facility] Comment on above: Performed By: #### L [id number] ####Composite Assembler: MARCELA LUCERO ([id number])[facility] (SACLAB)[address] [place] [address]#### [id number] ####Composite Assembler: KEMAR ABEBE ([id number])[facility] [place] (SBHLAB)[address] COMPREHENSIVE METABOLIC PANE Gigi 10-18-2024 Albumin [Mass/Vol] 3.0 g/dL Low 3.5-5.0 [facility] Comment on above: Performed By: #### L AB17, LAB99, [id number] ####Composite Assembler: KEMAR ABEBE ([id number])[facility] [place] (SBHLAB)[address] ALP [Catalytic activity/Vol] 133 U/L Normal [facility] Comment on above: Performed By: #### L AB17, LAB99, [id number] ####Composite Assembler: KEMAR ABEBE ([id number])[facility] [place] (SBHLAB)[address] ALT [Catalytic activity/Vol] 67 U/L Normal [facility] Comment on above: Performed By: #### Elijah MENDOZA, LAB99, [id number] ####Composite Assembler: KEMAR ABEBE ([id number])[facility] [place] (SBHLAB)[address] Anion gap [Moles/Vol] 13 mmol/L Normal 3-13 [facility] Comment on above: Performed By: #### Elijah MENDOZA, LAB99, [id number] ####Composite Assembler: KEMAR ABEBE ([id number])[facility] (SBHLAB)[address] AST [Catalytic activity/Vol] 50 U/L High <34 [facility] Comment on above: Performed By: #### Elijah MENDOZA, LAB99, [id number] ####Composite Assembler: KEMAR ABEBE ([id number])[facility] [place] (SBHLAB)[address] Bilirubin [Mass/Vol] 0.7 mg/dL Normal <1.2 [facility] Comment on above: Performed By: #### Elijah MENDOZA, LAB99, [id number] ####Composite Assembler: KEMAR ABEBE ([id number])[facility] (SBHL[facility])[address] Calcium [Mass/Vol] 9.0 mg/dL Normal 8.4-10.2 [facility] Comment on above: Performed By: #### Elijah MENDOZA, LAB99, [id number] ####Composite Assembler: KEMAR ABEBE ([id number])[facility] [place] (SBHLAB)[address] Chloride [Moles/Vol] 103 mmol/L Normal 98-107 [facility] Comment on above: Performed By: #### Elijah ABOsmin, LAB99, [id number] ####Composite Assembler: KEMAR ABEBE ([id number])[facility] (SBHLAB)[address] [place] [address] [place] CO2 [Moles/Vol] 21 mmol/L Low 22-29 [facility] Comment on above: Performed By: #### Elijah AB17, LAB99, [id number] ####Composite Assembler: KEMAR ABEBE ([id number])[facility] [place] (SBHLAB)[address] Creatinine [Mass/Vol] 1.16 mg/dL Normal [facility] Comment on above: Performed By: #### Elijah AB17, LAB99, [id number] ####Composite Assembler: KEMAR ABEBE ([id number])[facility] (SBHLAB)[address] GLOMERULAR FILTRATION RATE ML/MIN/1.73 SQ M.PREDICTED 55.1 mL/min/1.73m*2 Low >60.0 [facility] Comment on above: Result Comment: Calc ulation based on the Chronic Kidney Disease Epidemiology Collaboration (CKD-EPI) equation refit without adjustment for race Performed By: #### Elijah OJEDA17, LAB99, [id number] ####Composite Assembler: KEMAR ABEBE ([id number])[facility] (SBHLAB)[address] [place] [address] Glucose [Mass/Vol] 226 mg/dL High 74-100 [facility] Comment on above: Performed By: #### Elijah AB17, LAB99, [id number] ####Composite Assembler: KEMAR ABEBE ([id number])[facility] (SBHLAB)[address] Potassium [Moles/Vol] 4.1 mmol/L Normal 3.5-5.1 [facility] Comment on above: Result Comment: [facility] potassium values may be up to 0.5 mmol/L lower than serum values. Performed By: #### L AB17, LAB99, [id number] ####Composite Assembler: KEMAR ABEBE ([id number])[facility] (SBHLAB)[address] Protein [Mass/Vol] 6.7 g/dL Normal 6.4-8.3 [facility] Comment on above: Performed By: #### L AB17, LAB99, [id number] ####Composite Assembler: KEMAR ABEBE ([id number])[facility] (SBHLAB)[address] Sodium [Moles/Vol] 137 mmol/L Normal 136-145 [facility] Comment on above: Performed By: #### L AB17, LAB99, [id number] ####Composite Assembler: KEMAR ABEBE ([id number])[facility] (SBHLAB)[address] Urea nitrogen [Mass/Vol] 24 mg/dL High 9-23 [facility] Comment on above: Performed By: #### L AB17, LAB99, [id number] ####Composite Assembler: KEMAR ABEBE ([id number])[facility] (SBHLAB)[address] [place] [address] CT ABDOMEN PELVIS W CONTRAST on 10-18-2024 CT ABDOMEN PELVIS W CONTRAST Normal [facility] CT Abdomen and Pelvis W cont rast Erica 10-18-2024 Distended gallbladde r with suspected gallbladder wall edema concerning for acute cholecystitis. Distended stomach with air-fluid level may be related. Please correlate clinically. Follow-up recommended. CTR Dr Woodall. Report Dictated on Electronically Signed By: Javy Urias MD Electronically Signed Date/Time: 10/18/2024 7:12 PM [facility] Patient Name: WILL ALVARADO : 1965 [...] No spinal compression. [facility] Javy Urias MD - 10/18/2024 [facility] Name: [facility] : 1965 [id number] Exam Date/Time: 10/18/2024 17:21 Procedure: CT ABDOMEN [...] Electronically Signed Date/Time: 10/18/2024 7:12 PM EST [employer] [facility] Radiology Study observation (narrative) [facility] [employer] CTA Chest vessels WO and W c ontrast Erica 10-18-2024 Impression:Very limi laura due to motion.. Consider repeat exam or VQ scan for persistent symptoms. Note made of distended stomach with air-fluid level. Report Dictated on Electronically Signed By: Javy Urias MD Electronically Signed Date/Time: 10/18/2024 7:05 PM [facility] Patient Name: WILL ALVARADO : 1965 [id number] Exam Date/Time: 10/18/2024 17:20 Procedure: CT CHEST [...] Distended stomach with air-fluid level. Significance uncertain.. [facility] Javy Urias MD - 10/18/2024 [...] Electronically Signed Date/Time: 10/18/2024 7:05 PM EST [facility] Radiology Study observation (narrative) [facility] CTA Chest vessels WO and W c ontrast IVOrdered By: Javy Urias on 10-18-2024 [facility] Work Phone: Comprehensive metabolic 1998 panelon 10-18-2024 Albumin [Mass/Vol] 3 g/dL Low 3.5 - 5.0 g/dL [facility] ALP [Catalytic activity/Vol] 133 U/L [facility] ALT [Catalytic activity/Vol] 67 U/L [facility] Anion gap [Moles/Vol] 13 mmol/L 3 - 13 mmol/L [facility] AST [Catalytic activity/Vol] 50 U/L High NINF - 34 U/L [facility] Bilirubin [Mass/Vol] 0.7 mg/dL [facility] mg/dL [facility] Calcium [Mass/Vol] 9 mg/dL 8.4 - 10. 2 mg/dL [facility] Chloride [Moles/Vol] 103 mmol/L 98 - 10 7 mmol/L [facility] CO2 [Moles/Vol] 21 mmol/L Low 22 - 29 mmol/L [facility] Creatinine [Mass/Vol] 1.16 mg/dL [facility] GFR/1.73 sq M.predicted (S/P/Bld) [Vol rate/Area] 55.1 mL/min Low - PINF [facility] Comment on above: Calculation based on the Chronic Kidney Disease Epidemiology Collaboration (CKD-EPI) equation refit without adjustment for race Glucose [Mass/Vol] 226 mg/dL High 74 - 100 mg/dL [facility] Interpretation and review of laboratory results Abnormal [facility] Potassium [Moles/Vol] 4.1 mmol/L 3.5 - 5.1 mmol/L [facility] Comment on above: Plasma potassium helen ues may be up to 0.5 mmol/L lower than serum values. Protein [Mass/Vol] 6.7 g/dL 6.4 - 8.3 g/dL [facility] Sodium [Moles/Vol] 137 mmol/L 136 - 145 mmol/L [facility] Urea nitrogen [Mass/Vol] 24 mg/dL High 9 - 23 mg/dL [facility] ECG 12-LEADon 10-18-2024 ECG 12-LEAD IMPRESSION: Sinus rhythm Left ventricular hypertrophy Anterior Q waves, possibly due to LVH Electronically Signed On 10-18-2024 23:06:53 EST by Sunitha Borja Normal [facility] ED Nursing Noteon 10-18-2024 ED Nursing Note EKG at bedside Normal [facility] ED Nursing Note EKG called Normal [facility] ED Nursing Note [facility]. Pt presents with abd pain, diarrhea, chest pain. Pt presents aox4 speaking in full and complete sentences. Normal [facility] ED Provider Noteon ED Provider Note Normal [facility] HIGH SENSITIVITY TROPONIN, S ERIAL BASELINEon 10-18-2024 TROPONIN HIGH SENSITIVITY BASELINE <3 Normal [facility] Comment on above: Performed By: #### L AB17, LAB99, [id number] ####Composite Assembler: KEMAR ABEBE ([id number])[facility] ([facility])[address] [place] [address] HIGH SENSITIVITY TROPONIN, S ERIAL, SECOND TESTon 10-18-2024 TROPONIN HS DELTA, BASELINE TO SECOND Normal [facility] Comment on above: Result Comment: A [...] further clinical guidance. Performed By: #### L [id number] ####Composite Assembler: KEMAR ABEBE ([id number])[facility] TROPONIN HS, SERIAL REFLEX, TEST TWO <3 Normal [facility] Comment on above: Performed By: #### L [id number] ####Composite Assembler: KEMAR ABEBE ([id number])[facility] ([facility])[address] LACTIC ACID WITH REFLEXon Lactate [Moles/Vol] 0.8 mmol/L Normal 0.5-2.2 [facility] Comment on above: Performed By: #### L [id number] ####Composite Assembler: KEMAR ABEBE ([id number])[facility] ([facility])[address] [place] [address] Lactate [Moles/Vol] 2.2 mmol/L Normal 0.5-2.2 [facility] Comment on above: Performed By: #### L [id number] ####Composite Assembler: KEMAR ABEBE ([id number])[facility] ([facility])[address] LIPASEon 10-18-2024 Lipase [Catalytic activity/Vol] 6 U/L Normal <55 [facility] Comment on above: Performed By: #### L AB17, LAB99, [id number] ####Composite Assembler: KEMAR ABEBE ([id number])[facility] ([facility])[address] Laboratory - Chemistry and C hemistry - challengeon 10-18-2024 Lactate [Moles/Vol] 0.8 mmol/L 0.5 - 2. 2 mmol/L [facility] Glucose [Mass/Vol] 136 mg/dL High 70 - 100 mg/dL [facility] Lactate [Moles/Vol] 2.2 mmol/L 0.5 - 2. 2 mmol/L [facility] Lipase [Catalytic activity/Vol] 6 U/L NINF - 55 U/L [facility] Lipase [Catalytic activity/V ol]on 10-18-2024 Interpretation and review of laboratory results Normal [facility] MANUAL DIFFERENTIALon 2023 BAND NEUTROPHILS TOTAL PER COUNTED LEUKOCYTES BY MANUAL COUNT 7 Normal [facility] Comment on above: Performed By: #### L [id number], [id number] ####Composite Assembler: KEMAR ABEBE ([id number])[facility] [place] (SBHLAB)[address] BANDS 0.9 10*3/uL High <=0.0 [facility] Comment on above: Performed By: #### L [id number], [id number] ####Composite Assembler: KEMAR ABEBE ([id number])[facility] [place] (SBHLAB)[address] CELLS COUNTED TOTAL (#) IN BLOOD 200 Normal [facility] Comment on above: Performed By: #### L [id number], [id number] ####Composite Assembler: KEMAR ABEBE ([id number])[facility] [place] (SBHLAB)[address] LEUKOCYTE MORPHOLOGY FINDING IN BLOOD Normal Normal [facility] Comment on above: Performed By: #### L [id number], [id number] ####Composite Assembler: KEMAR ABEBE ([id number])[facility] [place] (SBHLAB)[address] LEUKOCYTES (10*3/UL) NUCLEATED ERYTHROCYTE ADJUST 25.9 10*3/uL High 3.6-10.7 [facility] Comment on above: Performed By: #### L [id number], [id number] ####Composite Assembler: KEMAR ABEBE ([id number])[facility] [place] (SBHLAB)[address] [place] [address] [place] LYMPHOCYTES (10*3/UL) IN BLOOD BY MANUAL COUNT 0.4 10*3/uL Low 1.0-4.3 [facility] Comment on above: Performed By: #### L [id number], [id number] ####Composite Assembler: KEMAR ABEBE ([id number])[facility] [place] (SBHLAB)[address] [place] [address] [place] LYMPHOCYTES TOTAL PER COUNTED LEUKOCYTES BY MANUAL COUNT 3 Normal [facility] Comment on above: Performed By: #### L OH8934, [id number] ####Composite Assembler: KEMAR ABEBE ([id number])[facility] [place] (SBHLAB)[address] [place] [address] [place] LYMPHOCYTES VARIANT/100 LEUKOCYTES IN BLOOD 3 % High <=0 [facility] Comment on above: Performed By: #### L [id number], [id number] ####Composite Assembler: KEMAR ABEBE ([id number])[facility] [place] (SBHLAB)[address] [place] [address] [place] LYMPHOCYTES/100 LEUKOCYTES IN BLOOD BY MANUAL COUNT 2 % Low 15-45 [facility] Comment on above: Performed By: #### L UT6699, [id number] ####Composite Assembler: KEMAR ABEBE ([id number])[facility] [place] (SBHLAB)[address] [place] [address] [place] METAMYELOCYTES (10*3/UL) IN BLOOD BY MANUAL COUNT 0.1 10*3/uL High <=0.0 [facility] Comment on above: Performed By: #### L [id number], [id number] ####Composite Assembler: KEMAR ABEBE ([id number])[facility] [place] (SBHLAB)[address] [place] [address] [place] METAMYELOCYTES TOTAL PER COUNTED LEUKOCYTES BY MANUAL COUNT 1 Normal [facility] Comment on above: Performed By: #### L PG5460, [id number] ####Composite Assembler: KEMAR ABEBE ([id number])[facility] [place] (SBHLAB)[address] [place] [address] [place] METAMYELOCYTES/100 LEUKOCYTES IN BLOOD BY MANUAL COUNT 1 % High <=0 [facility] Comment on above: Performed By: #### L GO9642, [id number] ####Composite Assembler: KEMAR ABEBE ([id number])[facility] [place] (SBHLAB)[address] [place] [address] [place] MONOCYTES (10*3/UL) IN BLOOD BY MANUAL COUNT 1.4 10*3/uL High 0.0-0.9 [facility] Comment on above: Performed By: #### L [id number], [id number] ####Composite Assembler: KEMAR ABEBE ([id number])[facility] [place] (SBHLAB)[address] [place] [address] [place] MONOCYTES TOTAL PER COUNTED LEUKOCYTES BY MANUAL COUNT 11 Normal [facility] Comment on above: Performed By: #### L RC5433, [id number] ####Composite Assembler: KEMAR ABEBE ([id number])[facility] [place] (SBHLAB)[address] [place] [address] [place] MONOCYTES/100 LEUKOCYTES IN BLOOD BY MANUAL COUNT 6 % Normal 5-13 [facility] Comment on above: Performed By: #### L [id number], [id number] ####Composite Assembler: KEMAR ABEBE ([id number])[facility] [place] (SBHLAB)[address] [place] [address] [place] NEUTROPHILS (SEGS+BANDS) (10*3/UL) BY MANUAL COUNT 23.2 10*3/uL High 1.8-7.0 [facility] Comment on above: Performed By: #### L [id number], [id number] ####Composite Assembler: KEMAR ABEBE ([id number])[facility] [place] (SBHLAB)[address] [place] [address] [place] NEUTROPHILS BAND FORM/100 LEUKOCYTES IN BLOOD BY MANUAL COUNT 4 % High <=0 [facility] Comment on above: Performed By: #### L [id number], [id number] ####Composite Assembler: KEMAR ABEBE ([id number])[facility] [place] (SBHLAB)[address] [place] [address] [place] NEUTROPHILS TOTAL PER COUNTED LEUKOCYTES BY MANUAL COUNT 172 Normal [facility] Comment on above: Performed By: #### L NH0598, [id number] ####Composite Assembler: KEMAR ABEBE ([id number])[facility] [place] (SBHLAB)[address] [place] [address] [place] PLATELET MORPHOLOGY IN BLOOD Normal Normal [facility] Comment on above: Performed By: #### L MA9269, [id number] ####Composite Assembler: KEMAR ABEBE ([id number])[facility] [place] (SBHLAB)[address] [place] [address] [place] RBC MORPHOLOGY IN BLOOD Normal Normal S [facility] Comment on above: Performed By: #### L [id number], [id number] ####Composite Assembler: KEMAR ABEBE ([id number])[facility] [place] (SBHLAB)[address] [place] [address] [place] SEGEMENTED NEUTROPHILS/100 LEUKOCYTES BY MANUAL COUNT 86 % High 38-82 [facility] Comment on above: Performed By: #### L HX9891, [id number] ####Composite Assembler: KEMAR ABEBE ([id number])[facility] [place] (SBHLAB)[address] [place] [address] [place] SEGMENTED NEUTROPHILS (10*3/UL)IN BLOOD BY MANUAL COUNT 23.2 10*3/uL High 1.8-7.5 [facility] Comment on above: Performed By: #### L ZT0881, [id number] ####Composite Assembler: KEMAR ABEBE ([id number])[facility] [place] (SB[facility]AB)[address] [place] [address] [place] VARIANT LYMPHOCYTES (10*3/UL) IN BLOOD BY MANUAL COUNT 0.8 10*3/uL High <=0.0 [facility] Comment on above: Performed By: #### L [id number], [id number] ####Composite Assembler: KEMAR ABEBE ([id number])[facility] [place] (SBHLAB)[address] [place] [address] [place] VARIANT LYMPHOCYTES TOTAL PER COUNTED LEUKOCYTES BY MANUAL COUNT 6 Normal [facility] Comment on above: Performed By: #### L [id number], [id number] ####Composite Assembler: KEMAR ABEBE ([id number])[facility] [place] (SBHLAB)[address] Manual differential performe d Ql (Bld)on 10-18-2024 Atypical Lymphocytes Manual 6 [facility] Band form neutrophils (Bld) [#/Vol] 0.9 10*3/uL High NINF - 0.0 10*3/uL [facility] Band form neutrophils/100 WBC (Bld) 4 % High NINF - 0 % [facility] Bands Manual 7 [facility] Cells Counted Total (Bld) [#] 200 {cells} [facility] Interpretation and review of laboratory results Abnormal [facility] Leukocyte morphology finding Nom (Bld) Normal [facility] Lymphocytes (Bld) [#/Vol] 0.4 10*3/uL Low 1.0 - 4.3 10*3/uL [facility] Lymphocytes Manual 3 [facility] Lymphocytes/100 WBC (Bld) 2 % Low 15 - 45 % [facility] Metamyelocytes (Bld) [#/Vol] 0.1 10*3/uL High NINF - 0.0 10*3/uL [facility] Metamyelocytes Manual 1 [facility] Metamyelocytes/100 WBC (Bld) 1 % High NINF - 0 % [facility] Monocytes (Bld) [#/Vol] 1.4 10*3/uL High 0.0 - 0.9 10*3/uL [facility] Monocytes Manual 11 [facility] Monocytes/100 WBC (Bld) 6 % 5 - 13 % [facility] Neutrophils (Bld) [#/Vol] 23.2 10*3/uL High 1.8 - 7.5 10*3/uL [facility] Neutrophils Manual 172 [facility] Platelet morphology finding Nom (Bld) Normal [facility] RBC morphology finding Nom (Bld) Normal [facility] Segmented neutrophils/100 WBC (Bld) 86 % High 38 - 82 % [facility] Variant lymphocytes (Bld) [#/Vol] 0.8 10*3/uL High NINF - 0.0 10*3/uL [facility] Variant lymphocytes/100 WBC (Bld) 3 % High NINF - 0 % [facility] WBC corrected for nucl RBC (Bld) [#/Vol] 25.9 10*3/uL High 3.6 - 10.7 10*3/uL [facility] No Panel Informationon 10-18 Interpretation and review of laboratory results Normal [facility] [employer] Sinus rhythm Left ventricular hypertrophy Anterior Q waves, possibly due to LVH Electronically Signed On 10-18-2024 23:06:53 EST by Sunitha Borja CV Sunitha Patel MD - 10/18/2024 IMPRESSION: Sinus rhythm Left ventricular hypertrophy Anterior Q waves, possibly due to LVH Electronically Signed On 10-18-2024 23:06:53 EST by Sunitha Borja [facility] Interpretation and review of laboratory results Abnormal [facility] [employer] Performed by: [facility], [address] [place] [address] CLIA ID: [id number] [facility] [employer] Troponin HS Delta, Baseline to Second [facility] Comment on above: A troponin delta gre [...] guidance. Troponin HS, Serial Second ng/L ng/L [facility] [employer] Troponin HS, Serial Baseline ng/L ng/L [facility] [employer] Interpretation and review of laboratory results Normal [facility] [employer] No Panel InformationOrdered By: Sunitha Borja on 10-18-2024 P [place] 68 degrees [employer] Work Phone: HI Interval 185 ms [employer] Phone: QRS [place] -37 degrees [employer] Work Phone: QRSD Interval 108 ms [employer] Phone: QT Interval 386 ms [employer] Work Phone: QTC Interval 489 ms [employer] Phone: T Wave [place] 47 degrees [employer] Phone: [phone] [employer] Phone: URINE CULTUREon 10-18-2024 Bacteria identified Cx Nom (U) Normal [facility] Comment on above: Performed By: #### L [id number] ####Composite Assembler: MARCELA LUCERO ([id number])[facility] (SACLAB)[address]#### [id number] ####Composite Assembler: KEMAR ABEBE ([id number])[facility] (SBHLAB)[address] US ABDOMEN LIMITEDon 024 US ABDOMEN LIMITED Normal [facility] US Abdomen limitedon 024 1. Cholestasis, cholelithiasis, gallbladder wall thickening, with probable mural edema and trace pericholecystic fluid, as well as positive sonographic Caldwell's sign, suspicious for postinflammatory change, including acute cholecystitis. Clinical correlation and follow-up as indicated. Report Dictated on Electronically Signed By: Joel Haddad MD Electronically Signed Date/Time: 10/18/2024 8:21 PM [facility] [employer] Patient Name: WILL ALVARADO : 1965 [...] adequately visualized due to overlying bowel gas. [facility] Joel Haddad MD - 10/18/2024 [...] Electronically Signed Date/Time: 10/18/2024 8:21 PM EST [facility] [employer] Radiology Study observation (narrative) [facility] US Abdomen limitedOrdered By : Joel Haddad on 10-18-2024 [employer] Work Phone: Vital signsOrdered By: Sunitha Borja on 10-18-2024 Heart rate 96 /min bpm [employer] Phone: 36on 10-17-2024 36 Called [facility] and spoke with nurse laney. I relayed the message below and she verbalized understanding. Normal [facility] [facility] A lot of varibility. Many of results are adequate, many high. No clear trend to change doses thank you Normal [facility] 36on 10-16-2024 36 Patient's BGL Normal [facility] 36on 10-10-2024 36 Faxed recommendation to [facility]([phone]) Normal [facility] 36on 10-09-2024 36 Keep doses the same for now thank you Normal [facility] 36 Patient's BGL Normal [facility] 36on 10-04-2024 36 Patient's BGL Normal [facility] 36on 09-26-2024 36 Notified pt's nurse at his facilities. Normal [facility] 36on 09-25-2024 36 A lot of variability please keep doses the same thank you Normal [facility] 36 Patient's BGL Normal [facility] Hemoglobin A1con 09-22-2024 HbA1c (Bld) [Mass fraction] 7.6 % High 3.8-5.6 [facility] Comment on above: Order Comment: 103-1 Result Comment: Norm al < 5.7 % Prediabetic 5.7 - 6.4 % Diabetic >or= 6.5 % Please note range changes. Performed By: #### L 100.0500, L500.4050 #### [facility] [address] [place], [place], [id number] Hemoglobin A1c percentageOrd ered By: Jared Guzman on 09-22-2024 HbA1c (Bld) [Mass fraction] 7.6 % High 3.8-5.6 [facility] Comment on above: Normal < 5.7 % Predi abetic 5.7 - 6.4 % Diabetic >or= 6.5 % Please note range changes. 36on 09-20-2024 36 Faxed recommendation to [facility]. Thank you! Normal [facility] 36on 09-19-2024 36 Very high doses with variability and history severe hypoglycemia- would not change doses for now Normal [facility] 36 Patient's BGL Normal [facility] 36on 09-13-2024 36 Faxed info. To [facility]. [phone] Normal [facility] Laboratory - Chemistry and C hemistry - challengeon 01-27-2024 Glucose [Mass/Vol] 143 mg/dL High 70 - 100 mg/dL [facility] No Panel Informationon 01-26 Interpretation and review of laboratory results Abnormal [facility] Performed by: [facility], [address] [place] [id number] CLIA ID: [id number] [facility] Radiology Study observation (narrative) [facility] Laboratory - Chemistry and C hemistry - challengeon 01-26-2024 Glucose [Mass/Vol] 101 mg/dL High 70 - 100 mg/dL [facility] Glucose [Mass/Vol] 111 mg/dL High 70 - 100 mg/dL [facility] Glucose [Mass/Vol] 102 mg/dL High 70 - 100 mg/dL [facility] No Panel Informationon 01-25 Interpretation and review of laboratory results Abnormal [facility] Performed by: [facility], [address] [place] [address] CLIA ID: [id number] [facility] Interpretation and review of laboratory results Abnormal [facility] Performed by: [facility], [address] [place] [address] CLIA ID: [id number] [facility] Interpretation and review of laboratory results Abnormal [facility] Performed by: [facility], [address] [place] [address] CLIA ID: [id number] [facility] Radiology Study observation (narrative) [facility] Radiology Study observation (narrative) [facility] Radiology Study observation (narrative) [facility] CBC W Auto Differential pane l (Bld)on 01-22-2024 Basophils (Bld) [#/Vol] 0.1 10*3/uL 0.0 - 0.2 10*3/uL [facility] Basophils/100 WBC (Bld) 0.5 % 0.0 - 2.0 % [facility] Eosinophils (Bld) [#/Vol] 0.1 10*3/uL 0.0 - 0.5 10*3/uL [facility] Eosinophils/100 WBC (Bld) 0.8 % 0.0 - 6.0 % [facility] Erythrocyte distribution width (RBC) [Ratio] 14.3 % 11.5 - 15.0 % [facility] Hematocrit (Bld) [Volume fraction] 35.6 % Male: 40.0-52.0 ; Female: 35.0-47.0 [facility] [employer] Hemoglobin (Bld) [Mass/Vol] 11.3 g/dL Low 11.7 - 18.0 g/dL [facility] [employer] Immature granulocytes (Bld) [#/Vol] 0.1 10*3/uL High NINF - 0.1 10*3/uL [facility] Immature granulocytes/100 WBC (Bld) 0.7 % 0.0 - 2.0 % [facility] Interpretation and review of laboratory results Abnormal [facility] Lymphocytes (Bld) [#/Vol] 1.4 10*3/uL 1.0 - 4.3 10*3/uL [facility] [employer] Lymphocytes/100 WBC (Bld) 14.3 % Low 15.0 - 45.0 % [facility] MCH (RBC) [Entitic mass] 27.5 pg 26.0 - 34.0 pg [facility] [employer] MCHC (RBC) [Mass/Vol] 31.7 % 30.5 - 36.0 % [facility] [employer] MCV (RBC) [Entitic vol] 86.6 fL 77.0 - 99.0 fL [facility] [employer] Monocytes (Bld) [#/Vol] 0.6 10*3/uL 0.0 - 0.9 10*3/uL [facility] [employer] Monocytes/100 WBC (Bld) 5.9 % 5.0 - 13.0 % [facility] [employer] Neutrophils (Bld) [#/Vol] 7.8 10*3/uL High 1.8 - 7.5 10*3/uL [facility] [employer] Neutrophils/100 WBC (Bld) 77.8 % 38.0 - 82.0 % [facility] [employer] Nucleated RBC/100 WBC (Bld) [Ratio] 0.0 % [facility] [employer] Platelet mean volume (Bld) [Entitic vol] 10.3 fL 9.0 - 12.7 fL [facility] [employer] Platelets (Bld) [#/Vol] 511 10*3/uL High 140 - 440 10*3/uL [facility] RBC (Bld) [#/Vol] 4.11 10*6/uL Male: 4.40-5.90; Female: 3.80-5.20 [facility] WBC (Bld) [#/Vol] 10.0 10*3/uL 3.6 - 10.7 10*3/uL [facility] CT Abdomen and Pelvis W cont [...] MD Electronically Signed Date/Time: 01/22/2024 4:54 AM [facility] [employer] RADIOLOGY SYSTEM Patient Name: WILL ALVARADO : 1965 [facility]#: [id number] Exam Date/Time: 01/22/2024 04:15 Procedure: CT ABDOMEN [...] dislocation. [facility] RADIOLOGY SYSTEM Brandon Morgan MD - 01/22/2024 [facility] Name: [facility] : 1965 [id number] Exam Date/Time: 01/22/2024 04:15 Procedure: CT ABDOMEN [...] Electronically Signed Date/Time: 01/22/2024 4:54 AM EDT [facility] Rad[facility] Study observation (narrative) [facility] CT Abdomen and Pelvis W cont rast IVOrdered By: Brandon Morgan on 01-22-2024 [employer] Work Phone: Comprehensive metabolic 1998 panelon 01-22-2024 Albumin [Mass/Vol] 4.2 g/dL 3.5 - 5.0 g/dL [facility] ALP [Catalytic activity/Vol] 121 U/L 38 - 126 U/L [facility] ALT [Catalytic activity/Vol] 32 U/L Male: 0-49 U/L; Female: 0-34 U/L [facility] Anion gap [Moles/Vol] 11 mmol/L 3 - 13 mmol/L [facility] AST [Catalytic activity/Vol] 26 U/L 15 - 46 U/L [facility] Bilirubin [Mass/Vol] 0.5 mg/dL 0.2 - 1 .3 mg/dL [facility] Calcium [Mass/Vol] 9.6 mg/dL 8.4 - 10. 4 mg/dL [facility] Chloride [Moles/Vol] 100 mmol/L 98 - 10 7 mmol/L [facility] CO2 [Moles/Vol] 25 mmol/L 22 - 30 mmol/L [facility] Creatinine [Mass/Vol] 0.61 mg/dL Male: 0.66-1.25 mg/dL; Female: 0.52-1.04 mg/dL [facility] GFR/1.73 sq M.predicted MDRD (S/P/Bld) [Vol rate/Area] - PINF [facility] Comment on above: Calculation based on the Chronic Kidney Disease Epidemiology Collaboration (CKD-EPI) equation refit without adjustment for race Glucose [Mass/Vol] 81 mg/dL 70 - 100 mg/dL [facility] Potassium [Moles/Vol] 4.0 mmol/L 3.5 - 5.1 mmol/L [facility] Protein [Mass/Vol] 7.5 g/dL 6.3 - 8.2 g/dL [facility] Sodium [Moles/Vol] 136 mmol/L 135 - 145 mmol/L [facility] Urea nitrogen [Mass/Vol] 13 mg/dL Male: 9-20 mg/dL; Female: 7-17 mg/dL [facility] Laboratory - Chemistry and C hemistry - challengeon 01-22-2024 Lactate [Moles/Vol] 0.7 mmol/L 0.7 - 2. 0 mmol/L [facility] Lipase [Catalytic activity/Vol] 41 U/L 23 - 300 U/L [facility] Lipase [Catalytic activity/V ol]on 01-22-2024 Interpretation and review of laboratory results Normal [facility] No Panel Informationon 01-21 Interpretation and review of laboratory results Normal [facility] Urinalysis complete panel (U )Ordered By: Erickson Olmedo on 01-22-2024 Bacteria LM.HPF (Urine sed) [#/Area] Few Abnormal Negative /HPF [facility] Bilirubin Ql (U) Negative Negative mg/dL [facility] Clarity (U) Clear Clear [facility] Color (U) Light Yellow Lt. Yellow [facility] Epithelial cells.squamous LM.HPF (Urine sed) [#/Area] 0-2 [facility] Glucose Ql (U) Normal Normal (<70) mg/dL [facility] Hemoglobin Ql (U) 1.0 mg/dL Abnormal Negative [facility] Interpretation and review of laboratory results Abnormal [facility] Ketones (U) [Mass/Vol] Negative Negat bernard mg/dL [facility] Leukocyte esterase Test strip Ql (U) 75 Abnormal Negative Kat/uL [facility] Mucus LM.HPF (Urine sed) [#/Area] Few Negative /LPF [facility] Nitrite Ql (U) Negative Negative [facility] pH (U) 8.0 [pH] 5.0 - 8.0 pH [facility] Protein (U) [Mass/Vol] 100 mg/dL Abnormal Negative [facility] RBC LM.HPF (Urine sed) [#/Area] 26-50 Abnormal [facility] Specific gravity (U) [Rel density] 1.013 1.005 - 1.030 [facility] Urobilinogen (U) [Mass/Vol] Normal Normal (0-1) mg/dL [facility] WBC LM.HPF (Urine sed) [#/Area] 6-10 Abnormal [facility] Basophil percentageOrdered B y: Jared Guzman on 01-20-2024 Chloride [Moles/Vol] 104 mmol/L 98-107 [facility] Glucose [Mass/Vol] 159 mg/dL 74-106 [facility] Comment on above: Fasting Glucose resu lt greater than or equal to 126 mg/dL suggests DIABETES MELLITUS per A.D.A. criteria. Hemoglobin (Bld) [Mass/Vol] 9.6 g/dL 12.0-15.0 [facility] Potassium [Moles/Vol] 4.2 mmol/L 3.5-5.1 [facility] Sodium [Moles/Vol] 137 mmol/L 136-145 [facility] WBC (Bld) [#/Vol] 7.7 10*3/uL 4.4-11.0 [facility] Determination of erythrocyte mean corpuscular volume (MCV)Ordered By: Jared Gumzan on 01-20-2024 MCV (RBC) [Entitic vol] 88.3 fL 81-99 [facility] Erythrocyte distribution wid th ratioOrdered By: Jared Guzman on 01-20-2024 Erythrocyte distribution width (RBC) [Ratio] 14.5 % 11.6-14.6 [facility] Erythrocyte distribution wid th standard deviationOrdered By: Jared Guzman on 01-20-2024 Erythrocyte distribution width (RBC) [Entitic vol] 46.4 fL 35.1-43.9 [facility] Hematocrit Auto (Bld) [Volum e fraction]Ordered By: Jared Guzman on 01-20-2024 Hematocrit (Bld) [Volume fraction] 30.9 % 37-47 [facility] Laboratory - Chemistry and C hemistry - challengeOrdered By: Jared Guzman on 01-20-2024 CO2 [Moles/Vol] 26.0 mmol/L 21.0-32.0 [facility] Urea nitrogen/Creatinine [Mass ratio] 17.5 mg/mg 10-20 [facility] - Hematology and Cell countsOrdered By: Jared Guzman on 01-20-2024 MCH (RBC) [Entitic mass] 27.4 pg 27.0-32.0 [facility] MCHC (RBC) [Mass/Vol] 31.1 g/dL 32-36 [facility] Platelet mean volume (Bld) [Entitic vol] 10.0 fL 6.2-12.0 [facility] Platelets (Bld) [#/Vol] 411 10*3/uL 150-450 [facility] No Panel InformationOrdered By: Jared Guzman on 01-20-2024 Estimated GFR (MDRD) Amer 95 mL/min >60 [facility] Comment on above: GFR Calc Estimated GFR (MDRD) Non-Af Amer 78 mL/min >60 [facility] Comment on above: Non- GFR Calc RBC Auto (Bld) [#/Vol]Ordere d By: Jared Guzman on 01-20-2024 RBC (Bld) [#/Vol] 3.50 10*6/uL 4.2-5.4 [facility] Serum or plasma calcium mauricio urement (mass/volume)Ordered By: Jared Guzman on 01-20-2024 Calcium [Mass/Vol] 8.8 mg/dL 8.5-10.1 [facility] Serum or plasma creatinine m easurement (mass/volume)Ordered By: Jared Guzman on 01-20-2024 Creatinine [Mass/Vol] 0.80 mg/dL 0.55-1.02 [facility] Comment on above: The validity of the calculated GFR & GFRAA in patients over 70 years has not been determined. Clinical correlation is essential. Serum or plasma urea nitroge n measurement (mass/volume)Ordered By: Jared Guzman on 01-20-2024 Urea nitrogen [Mass/Vol] 14 mg/dL 7-18 [facility] Thin prep Papanicolaou smear with manual screeningOrdered By: Jared Guzman on 01-20-2024 Thin prep Papanicolaou smear with manual screening 7 5-15 [facility] Basophil percentageOrdered B y: Jared Guzman on 01-17-2024 Bilirubin [Mass/Vol] 0.50 mg/dL 0.20-1.00 [facility] Comment on above: For patients on eltr ombopag therapy, use of Dimension Ovid TBIL is not recommended. Chloride [Moles/Vol] 102 mmol/L 98-107 [facility] Glucose [Mass/Vol] 325 mg/dL 74-106 [facility] Comment on above: Glucose result great er than or equal to 200 mg/dLsuggests DIABETES MELLITUS per A.D.A. criteria. Hemoglobin (Bld) [Mass/Vol] 9.7 g/dL 12.0-15.0 [facility] Potassium [Moles/Vol] 4.4 mmol/L 3.5-5.1 [facility] Protein [Mass/Vol] 6.2 g/dL 6.4-8.2 [facility] Sodium [Moles/Vol] 134 mmol/L 136-145 [facility] WBC (Bld) [#/Vol] 7.1 10*3/uL 4.4-11.0 [facility] Determination of erythrocyte mean corpuscular volume (MCV)Ordered By: Jared Guzman on 01-17-2024 MCV (RBC) [Entitic vol] 88.0 fL 81-99 [facility] Erythrocyte distribution wid th ratioOrdered By: Jared Guzman on 01-17-2024 Erythrocyte distribution width (RBC) [Ratio] 14.2 % 11.6-14.6 [facility] Erythrocyte distribution wid th standard deviationOrdered By: Jared Guzman on 01-17-2024 Erythrocyte distribution width (RBC) [Entitic vol] 45.7 fL 35.1-43.9 [facility] Hematocrit Auto (Bld) [Volum e fraction]Ordered By: Jared Guzman on 01-17-2024 Hematocrit (Bld) [Volume fraction] 31.5 % 37-47 [facility] - Chemistry and C hemistry - challengeOrdered By: Jared Guzman on 01-17-2024 Albumin/Globulin [Mass ratio] 0.9 {ratio} 0.9-2.4 [facility] ALP [Catalytic activity/Vol] 142 U/L 45-117 [facility] ALT [Catalytic activity/Vol] 22 U/L 13-56 [facility] CO2 [Moles/Vol] 24.0 mmol/L 21.0-32.0 [facility] Globulin (S) [Mass/Vol] 3.3 g/dL 2.2-4.2 [facility] Urea nitrogen/Creatinine [Mass ratio] 19.2 mg/mg 10-20 [facility] - Hematology and Cell countsOrdered By: Jared Guzman on 01-17-2024 MCH (RBC) [Entitic mass] 27.1 pg 27.0-32.0 [facility] MCHC (RBC) [Mass/Vol] 30.8 g/dL 32-36 [facility] Platelet mean volume (Bld) [Entitic vol] 10.5 fL 6.2-12.0 [facility] Platelets (Bld) [#/Vol] 372 10*3/uL 150-450 [facility] No Panel InformationOrdered By: Jared Guzman on 01-17-2024 Estimated GFR (MDRD) Amer 85 mL/min >60 [facility] Comment on above: GFR Calc Estimated GFR (MDRD) Non-Af Amer 70 mL/min >60 [facility] Comment on above: Non- GFR Calc RBC Auto (Bld) [#/Vol]Ordere d By: Jared Guzman on 01-17-2024 RBC (Bld) [#/Vol] 3.58 10*6/uL 4.2-5.4 [facility] Serum or plasma calcium mauricio urement (mass/volume)Ordered By: Jared Guzman on 01-17-2024 Calcium [Mass/Vol] 8.6 mg/dL 8.5-10.1 [facility] Serum or plasma creatinine m easurement (mass/volume)Ordered By: Jared Guzman on 01-17-2024 Creatinine [Mass/Vol] 0.88 mg/dL 0.55-1.02 [facility] Comment on above: The validity of the calculated GFR & GFRAA in patients over 70 years has not been determined. Clinical correlation is essential. Serum or plasma urea nitroge n measurement (mass/volume)Ordered By: Jared Guzman on 01-17-2024 Urea nitrogen [Mass/Vol] 17 mg/dL 7-18 [facility] Thin prep Papanicolaou smear with manual screeningOrdered By: Jared Guzman on 01-17-2024 Thin prep Papanicolaou smear with manual screening 2.9 g/dL 3.2-5.0 [facility] Thin prep Papanicolaou smear with manual screening 13 U/L 15-37 [facility] Thin prep Papanicolaou smear with manual screening 8 5-15 [facility] Whole blood hemoglobin A1c/t otal hemoglobin ratio (mass fraction)Ordered By: Jared Guzman on 01-17-2024 HbA1c (Bld) [Mass fraction] 8.1 % 3.8-5.6 [facility] Comment on above: Normal < 5.7 % Predi abetic 5.7 - 6.4 % Diabetic >or= 6.5 % Please note range changes. Basophil percentageOrdered B y: Jared Guzman on 01-13-2024 Chloride [Moles/Vol] 107 mmol/L 98-107 [facility] Cholesterol [Mass/Vol] 147 mg/dL <200 [facility] Comment on above: <200 mg/dL Desirable 200-240 mg/dL Borderline >240 mg/dL High Risk Glucose [Mass/Vol] 72 mg/dL 74-106 [facility] Hemoglobin (Bld) [Mass/Vol] 9.4 g/dL 12.0-15.0 [facility] Potassium [Moles/Vol] 3.9 mmol/L 3.5-5.1 [facility] Sodium [Moles/Vol] 141 mmol/L 136-145 [facility] Triglyceride [Mass/Vol] 137 mg/dL <199 [facility] Comment on above: The drugs N-Acetylcy steine and Metamizole may falsely depress this assay.Serum Triglycerides Reference Interval Normal <150 mg/dL Borderline high 150 - 199 mg/dL High 200 - 499 mg/dL Very High > or = 500 mg/dL WBC (Bld) [#/Vol] 7.1 10*3/uL 4.4-11.0 [facility] Determination of erythrocyte mean corpuscular volume (MCV)Ordered By: Jared Guzman on 01-13-2024 MCV (RBC) [Entitic vol] 87.4 fL 81-99 [facility] Erythrocyte distribution wid th ratioOrdered By: Jared Guzman on 01-13-2024 Erythrocyte distribution width (RBC) [Ratio] 14.6 % 11.6-14.6 [facility] Erythrocyte distribution wid th standard deviationOrdered By: Jared Guzman on 01-13-2024 Erythrocyte distribution width (RBC) [Entitic vol] 46.7 fL 35.1-43.9 [facility] Hematocrit Auto (Bld) [Volum e fraction]Ordered By: Jared Guzman on 01-13-2024 Hematocrit (Bld) [Volume fraction] 29.9 % 37-47 [facility] - Chemistry and C hemistry - challengeOrdered By: Jared Guzman on 01-13-2024 Cholesterol in HDL [Mass/Vol] 37 mg/dL >40 [facility] Comment on above: The drugs N-Acetylcy steine and Metamizole may falsely depress this assay. Reference Range HDL <40 mg/dL Low HDL Cholesterol HDL >or= 60 mg/dL High HDL Cholesterol Cholesterol in LDL [Mass/Vol] 83 mg/dL 0-130 [facility] CO2 [Moles/Vol] 26.0 mmol/L 21.0-32.0 [facility] Urea nitrogen/Creatinine [Mass ratio] 30.8 mg/mg 10-20 [facility] - Hematology and Cell countsOrdered By: Jared Guzman on 01-13-2024 MCH (RBC) [Entitic mass] 27.5 pg 27.0-32.0 [facility] MCHC (RBC) [Mass/Vol] 31.4 g/dL 32-36 [facility] Platelet mean volume (Bld) [Entitic vol] 9.8 fL 6.2-12.0 [facility] Platelets (Bld) [#/Vol] 380 10*3/uL 150-450 [facility] No Panel InformationOrdered By: Jared Guzman on 01-13-2024 Estimated GFR (MDRD) Amer 129 mL/min >60 [facility] Comment on above: GFR Calc Estimated GFR (MDRD) Non-Af Amer 106 mL/min >60 [facility] Comment on above: Non- GFR Calc VLDL Cholesterol 27 mg/dL 5-40 [facility] RBC Auto (Bld) [#/Vol]Ordere d By: Jared Guzman on 01-13-2024 RBC (Bld) [#/Vol] 3.42 10*6/uL 4.2-5.4 [facility] Serum or plasma calcium mauricio urement (mass/volume)Ordered By: Jared Guzman on 01-13-2024 Calcium [Mass/Vol] 8.7 mg/dL 8.5-10.1 [facility] Serum or plasma creatinine m easurement (mass/volume)Ordered By: Jared Guzman on 01-13-2024 Creatinine [Mass/Vol] 0.62 mg/dL 0.55-1.02 [facility] Comment on above: The validity of the calculated GFR & GFRAA in patients over 70 years has not been determined. Clinical correlation is essential. Serum or plasma urea nitroge n measurement (mass/volume)Ordered By: Jared Guzman on 01-13-2024 Urea nitrogen [Mass/Vol] 19 mg/dL 7-18 [facility] Thin prep Papanicolaou smear with manual screeningOrdered By: Jared Guzman on 01-13-2024 Thin prep Papanicolaou smear with manual screening 8 5-15 [facility] Basophil percentageOrdered B y: Jared Guzman on 12-31-2023 Chloride [Moles/Vol] 101 mmol/L 98-107 [facility] Glucose [Mass/Vol] 87 mg/dL 74-106 [facility] Hemoglobin (Bld) [Mass/Vol] 10.1 g/dL 12.0-15.0 [facility] Potassium [Moles/Vol] 4.8 mmol/L 3.5-5.1 [facility] Sodium [Moles/Vol] 133 mmol/L 136-145 [facility] WBC (Bld) [#/Vol] 11.6 10*3/uL 4.4-11.0 [facility] Determination of erythrocyte mean corpuscular volume (MCV)Ordered By: Jared Guzman on 12-31-2023 MCV (RBC) [Entitic vol] 87.8 fL 81-99 [facility] Erythrocyte distribution wid th ratioOrdered By: Jared Guzman on 12-31-2023 Erythrocyte distribution width (RBC) [Ratio] 14.1 % 11.6-14.6 [facility] Erythrocyte distribution wid th standard deviationOrdered By: Jared Guzman on 12-31-2023 Erythrocyte distribution width (RBC) [Entitic vol] 45.6 fL 35.1-43.9 [facility] Hematocrit Auto (Bld) [Volum e fraction]Ordered By: Jared Guzman on 12-31-2023 Hematocrit (Bld) [Volume fraction] 32.5 % 37-47 [facility] - Chemistry and C hemistry - challengeOrdered By: Jared Guzman on 12-31-2023 CO2 [Moles/Vol] 24.0 mmol/L 21.0-32.0 [facility] Urea nitrogen/Creatinine [Mass ratio] 12.1 mg/mg 10-20 [facility] Laboratory - Hematology and Cell countsOrdered By: Jared Guzman on 12-31-2023 MCH (RBC) [Entitic mass] 27.3 pg 27.0-32.0 [facility] MCHC (RBC) [Mass/Vol] 31.1 g/dL 32-36 [facility] Platelet mean volume (Bld) [Entitic vol] 10.1 fL 6.2-12.0 [facility] Platelets (Bld) [#/Vol] 413 10*3/uL 150-450 [facility] No Panel InformationOrdered By: Jared Guzman on 12-31-2023 Estimated GFR (MDRD) Amer 16 mL/min >60 [facility] Comment on above: GFR Calc Estimated GFR (MDRD) Non-Af Amer 13 mL/min >60 [facility] Comment on above: Non- GFR Calc RBC Auto (Bld) [#/Vol]Ordere d By: Jared Guzman on 12-31-2023 RBC (Bld) [#/Vol] 3.70 10*6/uL 4.2-5.4 [facility] Serum or plasma calcium mauricio urement (mass/volume)Ordered By: Jared Guzman on 12-31-2023 Calcium [Mass/Vol] 8.9 mg/dL 8.5-10.1 [facility] Serum or plasma creatinine m easurement (mass/volume)Ordered By: Jared Guzman on 12-31-2023 Creatinine [Mass/Vol] 3.80 mg/dL 0.55-1.02 [facility] Comment on above: The validity of the calculated GFR & GFRAA in patients over 70 years has not been determined. Clinical correlation is essential. Serum or plasma urea nitroge n measurement (mass/volume)Ordered By: Jared Guzman on 12-31-2023 Urea nitrogen [Mass/Vol] 46 mg/dL 7-18 [facility] Thin prep Papanicolaou smear with manual screeningOrdered By: Jared Guzman on 12-31-2023 Thin prep Papanicolaou smear with manual screening 8 5-15 [facility] Basophil percentageOrdered B y: Jared Guzman on 12-30-2023 Chloride [Moles/Vol] 103 mmol/L 98-107 [facility] Glucose [Mass/Vol] 116 mg/dL 74-106 [facility] Comment on above: Fasting Glucose resu lt from 100 to 125 mg/dL suggests IMPAIRED HOMEOSTASIS per A.D.A. criteria. Hemoglobin (Bld) [Mass/Vol] 10.6 g/dL 12.0-15.0 [facility] Potassium [Moles/Vol] 4.4 mmol/L 3.5-5.1 [facility] Sodium [Moles/Vol] 133 mmol/L 136-145 [facility] WBC (Bld) [#/Vol] 13.1 10*3/uL 4.4-11.0 [facility] Determination of erythrocyte mean corpuscular volume (MCV)Ordered By: Jared Guzman on 12-30-2023 MCV (RBC) [Entitic vol] 86.8 fL 81-99 [facility] Erythrocyte distribution wid th ratioOrdered By: Jared Guzman on 12-30-2023 Erythrocyte distribution width (RBC) [Ratio] 13.6 % 11.6-14.6 [facility] Erythrocyte distribution wid th standard deviationOrdered By: Jared Guzman on 12-30-2023 Erythrocyte distribution width (RBC) [Entitic vol] 43.0 fL 35.1-43.9 [facility] Hematocrit Auto (Bld) [Volum e fraction]Ordered By: Jared Guzman on 12-30-2023 Hematocrit (Bld) [Volume fraction] 34.2 % 37-47 [facility] Laboratory - Chemistry and C hemistry - challengeOrdered By: Jared Guzman on 12-30-2023 CO2 [Moles/Vol] 24.0 mmol/L 21.0-32.0 [facility] Urea nitrogen/Creatinine [Mass ratio] 19.3 mg/mg 10-20 [facility] Laboratory - Hematology and Cell countsOrdered By: Jared Guzman on 12-30-2023 MCH (RBC) [Entitic mass] 26.9 pg 27.0-32.0 [facility] MCHC (RBC) [Mass/Vol] 31.0 g/dL 32-36 [facility] Platelet mean volume (Bld) [Entitic vol] 10.3 fL 6.2-12.0 [facility] Platelets (Bld) [#/Vol] 434 10*3/uL 150-450 [facility] No Panel InformationOrdered By: Jared Guzman on 12-30-2023 Estimated GFR (MDRD) Amer 42 mL/min >60 [facility] Comment on above: GFR Calc Estimated GFR (MDRD) Non-Af Amer 35 mL/min >60 [facility] Comment on above: Non- GFR Calc RBC Auto (Bld) [#/Vol]Ordere d By: Jared Guzman on 12-30-2023 RBC (Bld) [#/Vol] 3.94 10*6/uL 4.2-5.4 [facility] Serum or plasma calcium mauricio urement (mass/volume)Ordered By: Jared Guzman on 12-30-2023 Calcium [Mass/Vol] 9.4 mg/dL 8.5-10.1 [facility] Serum or plasma creatinine m easurement (mass/volume)Ordered By: Jared Guzman on 12-30-2023 Creatinine [Mass/Vol] 1.61 mg/dL 0.55-1.02 [facility] Comment on above: The validity of the calculated GFR & GFRAA in patients over 70 years has not been determined. Clinical correlation is essential. Serum or plasma urea nitroge n measurement (mass/volume)Ordered By: Jared Guzman on 12-30-2023 Urea nitrogen [Mass/Vol] 31 mg/dL 7-18 [facility] Thin prep Papanicolaou smear with manual screeningOrdered By: Jared Guzman on 12-30-2023 Thin prep Papanicolaou smear with manual screening 6 5-15 [facility] Basic metabolic 1998 panelon 12-29-2023 Anion gap [Moles/Vol] 8 mmol/L 3 - 13 mmol/L [facility] Calcium [Mass/Vol] 9.2 mg/dL 8.4 - 10. 4 mg/dL [facility] Chloride [Moles/Vol] 99 mmol/L 98 - 10 7 mmol/L [facility] CO2 [Moles/Vol] 21 mmol/L Low 22 - 30 mmol/L [facility] Creatinine [Mass/Vol] 0.70 mg/dL Male: 0.66-1.25 mg/dL; Female: 0.52-1.04 mg/dL [facility] GFR/1.73 sq M.predicted MDRD (S/P/Bld) [Vol rate/Area] - [facility] Comment on above: Calculation based on the Chronic Kidney Disease Epidemiology Collaboration (CKD-EPI) equation refit without adjustment for race Glucose [Mass/Vol] 341 mg/dL High 70 - 100 mg/dL [facility] Interpretation and review of laboratory results Abnormal [facility] Potassium [Moles/Vol] 5.3 mmol/L High 3.5 - 5.1 mmol/L [facility] Sodium [Moles/Vol] 128 mmol/L Low 135 - 145 mmol/L [facility] Urea nitrogen [Mass/Vol] 28 mg/dL Male: 9-20 mg/dL; Female: 7-17 mg/dL [facility] Basic metabolic 1998 panelOr dered By: Abner Vieyra on 12-29-2023 Anion gap [Moles/Vol] 7 mmol/L 3 - 13 mmol/L [facility] Calcium [Mass/Vol] 9.2 mg/dL 8.4 - 10. 4 mg/dL [facility] Chloride [Moles/Vol] 99 mmol/L 98 - 10 7 mmol/L [facility] CO2 [Moles/Vol] 23 mmol/L 22 - 30 mmol/L [facility] Creatinine [Mass/Vol] 0.79 mg/dL Male: 0.66-1.25 mg/dL; Female: 0.52-1.04 mg/dL [facility] GFR/1.73 sq M.predicted MDRD (S/P/Bld) [Vol rate/Area] 87.4 mL/min/{1.73_m2} - [facility] Comment on above: Calculation based on the Chronic Kidney Disease Epidemiology Collaboration (CKD-EPI) equation refit without adjustment for race Glucose [Mass/Vol] 284 mg/dL High 70 - 100 mg/dL [facility] Interpretation and review of laboratory results Abnormal [facility] Potassium [Moles/Vol] 5.7 mmol/L High 3.5 - 5.1 mmol/L [facility] Sodium [Moles/Vol] 129 mmol/L Low 135 - 145 mmol/L [facility] Urea nitrogen [Mass/Vol] 36 mg/dL Male: 9-20 mg/dL; Female: 7-17 mg/dL [facility] CBC W Auto Differential pane l (Bld)Ordered By: Laney Rader on 12-29-2023 Basophils (Bld) [#/Vol] 0.1 10*3/uL 0.0 - 0.2 10*3/uL [facility] Basophils/100 WBC (Bld) 0.8 % 0.0 - 2.0 % [facility] Eosinophils (Bld) [#/Vol] 0.1 10*3/uL 0.0 - 0.5 10*3/uL [facility] Eosinophils/100 WBC (Bld) 0.7 % Low 1.0 - 6.0 % [facility] Erythrocyte distribution width (RBC) [Ratio] 14.5 % 11.5 - 14.5 % [facility] Hematocrit (Bld) [Volume fraction] 35.9 % Male: 40.0-52.0 %; Female: 35.0-47.0 % [facility] Hemoglobin (Bld) [Mass/Vol] 11.8 g/dL 11.7 - 18.0 g/dL [facility] Interpretation and review of laboratory results Abnormal [facility] Lymphocytes (Bld) [#/Vol] 1.6 10*3/uL 1.0 - 4.3 10*3/uL [facility] Lymphocytes/100 WBC (Bld) 12.3 % Low 20.0 - 40.0 % [facility] MCH (RBC) [Entitic mass] 27.4 pg 26.0 - 34.0 pg [facility] MCHC (RBC) [Mass/Vol] 32.9 % 32.0 - 36.0 % [facility] MCV (RBC) [Entitic vol] 83.3 fL 80.0 - 98.0 fL [facility] Monocytes (Bld) [#/Vol] 0.6 10*3/uL 0.0 - 0.8 10*3/uL [facility] Monocytes/100 WBC (Bld) 4.9 % 2.0 - 10.0 % [facility] Neutrophils (Bld) [#/Vol] 10.4 10*3/uL High 1.8 - 7.0 10*3/uL [facility] Neutrophils/100 WBC (Bld) 81.3 % High 40.0 - 80.0 % [facility] Nucleated RBC/100 WBC (Bld) [Ratio] 0.0 % [facility] Platelet mean volume (Bld) [Entitic vol] 7.9 fL 7.4 - 12.4 fL [facility] Platelets (Bld) [#/Vol] 388 10*3/uL 140 - 440 10*3/uL [facility] RBC (Bld) [#/Vol] 4.31 10*6/uL Male: 4.40-5.90; Female: 3.80-5.20 [facility] WBC (Bld) [#/Vol] 12.8 10*3/uL High 3.6 - 10.7 10*3/uL [facility] Laboratory - Chemistry and C hemistry - challengeon 12-29-2023 Glucose [Mass/Vol] 319 mg/dL High 70 - 100 mg/dL [facility] Glucose [Mass/Vol] 346 mg/dL High 70 - 100 mg/dL [facility] Glucose [Mass/Vol] 279 mg/dL High 70 - 100 mg/dL [facility] Beta hydroxybutyrate [Mass/Vol] 6.84 mg/dL High 0.20 - 2.81 mg/dL [facility] No Panel Informationon 12-29 P [place] 40 degrees [facility] HI Interval 168 ms [facility] QRS [place] -37 degrees [facility] QRSD Interval 117 ms [facility] QT Interval 414 ms [facility] QTC Interval 479 ms [facility] T Wave [place] 23 degrees [facility] Sinus rhythm Nonspecific IVCD with LAD Left ventricular hypertrophy Electronically Signed On 12-29-2023 06:52:01 EST by Edwin Bustos CV Edwin Cook MD - 12/29/2023 IMPRESSION: Sinus rhythm Nonspecific IVCD with LAD Left ventricular hypertrophy Electronically Signed On 12-29-2023 06:52:01 EST by Edwin Bustos [facility] Interpretation and review of laboratory results Abnormal [facility] Performed by: [facility], [address] [place], [place] [id number] CLIA ID: [id number] [facility] Interpretation and review of laboratory results Abnormal [facility] Performed by: [facility], [address] [place] [id number] CLIA ID: [id number] [facility] Interpretation and review of laboratory results Abnormal [facility] Performed by: [facility], [address] [place] [address], [place] [address] CLIA ID: [id number] [facility] Interpretation and review of laboratory results Abnormal [facility] Radiology Study observation (narrative) [facility] Radiology Study observation (narrative) [facility] Radiology Study observation (narrative) [facility] Vital signson 12-29-2023 Heart rate 80 /min bpm [facility] Stomach Views for gastric emptying solid phase W radionuclide Jacob 12-23-2023 Abnormally delayed gastric emptying following solid meal. Report Dictated on Electronically Signed By: Edwin Paz MD Electronically Signed Date/Time: 12/23/2023 12:06 PM EST [facility] Patient Name: WILL ALVARADO : 1965 [...] ingestion is between 19 and 52 percent. [facility] Edwin Paz MD - 12/23/2023 [...] PM EST [facility] Radiology Study observation (narrative) [facility] Stomach Views for gastric emptying solid phase W radionuclide POOrdered By: Edwin Paz on 12-23-2023 [facility] Basophil percentageOrdered B y: Jared Guzman on 12-22-2023 Chloride [Moles/Vol] 105 mmol/L 98-107 [facility] Glucose [Mass/Vol] 129 mg/dL 74-106 [facility] Comment on above: Fasting Glucose resu lt greater than or equal to 126 mg/dL suggests DIABETES MELLITUS per A.D.A. criteria. Hemoglobin (Bld) [Mass/Vol] 10.2 g/dL 12.0-15.0 [facility] Potassium [Moles/Vol] 4.8 mmol/L 3.5-5.1 [facility] Sodium [Moles/Vol] 136 mmol/L 136-145 [facility] WBC (Bld) [#/Vol] 9.4 10*3/uL 4.4-11.0 [facility] Determination of erythrocyte mean corpuscular volume (MCV)Ordered By: Jared Guzman on 12-22-2023 MCV (RBC) [Entitic vol] 85.8 fL 81-99 [facility] Erythrocyte distribution wid th ratioOrdered By: Jared Guzman on 12-22-2023 Erythrocyte distribution width (RBC) [Ratio] 13.6 % 11.6-14.6 [facility] Erythrocyte distribution wid th standard deviationOrdered By: Jared Guzman on 12-22-2023 Erythrocyte distribution width (RBC) [Entitic vol] 42.4 fL 35.1-43.9 [facility] Hematocrit Auto (Bld) [Volum e fraction]Ordered By: Jared Guzman on 12-22-2023 Hematocrit (Bld) [Volume fraction] 32.1 % 37-47 [facility] Laboratory - Chemistry and C hemistry - challengeOrdered By: Jared Guzman on 12-22-2023 CO2 [Moles/Vol] 25.0 mmol/L 21.0-32.0 [facility] Urea nitrogen/Creatinine [Mass ratio] 37.0 mg/mg 10-20 [facility] Laboratory - Hematology and Cell countsOrdered By: Jared Guzman on 12-22-2023 MCH (RBC) [Entitic mass] 27.3 pg 27.0-32.0 [facility] MCHC (RBC) [Mass/Vol] 31.8 g/dL 32-36 [facility] Platelet mean volume (Bld) [Entitic vol] 9.9 fL 6.2-12.0 [facility] Platelets (Bld) [#/Vol] 393 10*3/uL 150-450 [facility] No Panel InformationOrdered By: Jared Guzman on 12-22-2023 Estimated GFR (MDRD) Amer 78 mL/min >60 [facility] Comment on above: GFR Calc Estimated GFR (MDRD) Non-Af Amer 65 mL/min >60 [facility] Comment on above: Non- GFR Calc RBC Auto (Bld) [#/Vol]Ordere d By: Jared Guzman on 12-22-2023 RBC (Bld) [#/Vol] 3.74 10*6/uL 4.2-5.4 [facility] Serum or plasma calcium mauricio urement (mass/volume)Ordered By: Jared Guzman on 12-22-2023 Calcium [Mass/Vol] 9.1 mg/dL 8.5-10.1 [facility] Serum or plasma creatinine m easurement (mass/volume)Ordered By: Jared Guzman on 12-22-2023 Creatinine [Mass/Vol] 0.95 mg/dL 0.55-1.02 [facility] Comment on above: The validity of the calculated GFR & GFRAA in patients over 70 years has not been determined. Clinical correlation is essential. Serum or plasma urea nitroge n measurement (mass/volume)Ordered By: Jared Guzman on 12-22-2023 Urea nitrogen [Mass/Vol] 35 mg/dL 7-18 [facility] Thin prep Papanicolaou smear with manual screeningOrdered By: Jared Guzman on 12-22-2023 Thin prep Papanicolaou smear with manual screening 6 5-15 [facility] CBC W Auto Differential pane l (Bld)Ordered By: Erickson Olmedo on 12-09-2023 Basophils (Bld) [#/Vol] 0.1 10*3/uL 0.0 - 0.2 10*3/uL [facility] Basophils/100 WBC (Bld) 0.6 % 0.0 - 2.0 % [facility] Eosinophils (Bld) [#/Vol] 0.0 10*3/uL 0.0 - 0.5 10*3/uL [facility] Eosinophils/100 WBC (Bld) 0.1 % Low 1.0 - 6.0 % [facility] Erythrocyte distribution width (RBC) [Ratio] 14.5 % 11.5 - 14.5 % [facility] Hematocrit (Bld) [Volume fraction] 36.0 % Male: 40.0-52.0 %; Female: 35.0-47.0 % [facility] Hemoglobin (Bld) [Mass/Vol] 12.1 g/dL 11.7 - 18.0 g/dL [facility] Interpretation and review of laboratory results Abnormal [facility] Lymphocytes (Bld) [#/Vol] 1.0 10*3/uL 1.0 - 4.3 10*3/uL [facility] Lymphocytes/100 WBC (Bld) 9.5 % Low 20.0 - 40.0 % [facility] MCH (RBC) [Entitic mass] 28.1 pg 26.0 - 34.0 pg [facility] MCHC (RBC) [Mass/Vol] 33.5 % 32.0 - 36.0 % [facility] MCV (RBC) [Entitic vol] 83.9 fL 80.0 - 98.0 fL [facility] Monocytes (Bld) [#/Vol] 0.5 10*3/uL 0.0 - 0.8 10*3/uL [facility] Monocytes/100 WBC (Bld) 4.8 % 2.0 - 10.0 % [facility] Neutrophils (Bld) [#/Vol] 9.1 10*3/uL High 1.8 - 7.0 10*3/uL [facility] Neutrophils/100 WBC (Bld) 85.0 % High 40.0 - 80.0 % [facility] Nucleated RBC/100 WBC (Bld) [Ratio] 0.0 % [facility] Platelet mean volume (Bld) [Entitic vol] 8.0 fL 7.4 - 12.4 fL [facility] Platelets (Bld) [#/Vol] 485 10*3/uL High 140 - 440 10*3/uL [facility] RBC (Bld) [#/Vol] 4.29 10*6/uL Male: 4.40-5.90; Female: 3.80-5.20 [facility] WBC (Bld) [#/Vol] 10.7 10*3/uL 3.6 - 10.7 10*3/uL [facility] Comprehensive metabolic 1998 panelon 12-09-2023 Albumin [Mass/Vol] 4.0 g/dL 3.5 - 5.0 g/dL [facility] ALP [Catalytic activity/Vol] 139 U/L High 38 - 126 U/L [facility] ALT [Catalytic activity/Vol] 29 U/L Male: 0-49 U/L; Female: 0-34 U/L [facility] Anion gap [Moles/Vol] 11 mmol/L 3 - 13 mmol/L [facility] AST [Catalytic activity/Vol] 25 U/L 15 - 46 U/L [facility] Bilirubin [Mass/Vol] 0.7 mg/dL 0.2 - 1 .3 mg/dL [facility] Calcium [Mass/Vol] 9.0 mg/dL 8.4 - 10. 4 mg/dL [facility] Chloride [Moles/Vol] 96 mmol/L Low 98 - 10 7 mmol/L [facility] CO2 [Moles/Vol] 24 mmol/L 22 - 30 mmol/L [facility] Creatinine [Mass/Vol] 0.76 mg/dL Male: 0.66-1.25 mg/dL; Female: 0.52-1.04 mg/dL [facility] GFR/1.73 sq M.predicted MDRD (S/P/Bld) [Vol rate/Area] - PIN[facility] Comment on above: Calculation based on the Chronic Kidney Disease Epidemiology Collaboration (CKD-EPI) equation refit without adjustment for race Glucose [Mass/Vol] 295 mg/dL High 70 - 100 mg/dL [facility] Interpretation and review of laboratory results Abnormal [facility] Potassium [Moles/Vol] 5.0 mmol/L 3.5 - 5.1 mmol/L [facility] Protein [Mass/Vol] 7.2 g/dL 6.3 - 8.2 g/dL [facility] Sodium [Moles/Vol] 132 mmol/L Low 135 - 145 mmol/L [facility] Urea nitrogen [Mass/Vol] 26 mg/dL Male: 9-20 mg/dL; Female: 7-17 mg/dL [facility] Laboratory - Chemistry and C hemistry - challengeon 12-09-2023 Troponin I.cardiac [Mass/Vol] ng/mL [facility] - 0.034 ng/mL [facility] Troponin I.cardiac [Mass/Vol] ng/mL [facility] - 0.034 ng/mL [facility] Beta hydroxybutyrate [Mass/Vol] 5.77 mg/dL High 0.20 - 2.81 mg/dL [facility] Lactate [Moles/Vol] 1.4 mmol/L 0.7 - 2. 0 mmol/L [facility] Lipase [Catalytic activity/Vol] 41 U/L 23 - 300 U/L [facility] Magnesium [Mass/Vol] 1.6 mg/dL 1.6 - 2 .3 mg/dL [facility] Base excess Calc (BldV) [Moles/Vol] -0.6000 mmol/L -3 - 3 mmol/L [facility] CO2 (BldV) [Partial pressure] 42.1 mm[Hg] [facility] HCO3 (Bld) [Moles/Vol] 24.7 mmol/L 23.0 - 27.0 mmol/L [facility] Oxygen (BldV) [Partial pressure] 34.1 mm[Hg] mm Hg [facility] pH (BldV) 7.377 [pH] 7.330 - 7.430 pH [facility] Laboratory - Microbiology an d Antimicrobial susceptibilityon 12-09-2023 FLUAV RNA YASIR+probe Ql (Resp) Not detected Not Detected [facility] FLUBV RNA YASIR+probe Ql (Resp) Not detected Not Detected [facility] RSV RNA YASIR+probe Ql (Resp) Not detected Not Detected [facility] SARS-CoV-2 (COVID-19) RNA YASIR+probe Ql (Resp) Not detected Not Detected [facility] SARS-CoV-2 (COVID-19) RNA YASIR+probe Ql (Unsp spec) Methodology: real-time, RT-PCR The SARS-CoV-2, Flu A/B, and RSV Combo assay is intended for in vitro diagnostic use under the FDA Emergency Use Authorization (EUA). This test has not been FDA cleared or approved. In compliance with this authorization, please visit www.fda.gov/media/544754 /download or www.fda.gov/media/095715 /download to access the applicable information sheets. [facility] No Panel Informationon 12-09 Interpretation and review of laboratory results Abnormal [facility] P [place] 35 degrees [facility] HI Interval 158 ms [facility] QRS [place] -33 degrees [facility] QRSD Interval 114 ms [facility] QT Interval 388 ms [facility] QTC Interval 468 ms [facility] T Wave [place] 27 degrees [facility] Caridad Evans MD - 12/09/2023 IMPRESSION: Sinus rhythm Abnormal R-wave progression, late transition Left ventricular hypertrophy No significant change compared to 08/17/2023 Electronically Signed On 12-09-2023 06:18:33 EST by Caridad Barnard [facility] Interpretation and review of laboratory results Normal [facility] Interpretation and review of laboratory results Normal [facility] FIO2 [facility] Performed by: Nati Vigil [facility], [address] [place] [id number] CLIA ID: [id number] [facility] Radiology Study observation (narrative) [facility] SARS-CoV-2, Flu A/B, and RSV Comboon 12-09-2023 Interpretation and review of laboratory results Normal [facility] Troponin I.cardiac [Mass/Vol ]on 12-09-2023 Interpretation and review of laboratory results Normal [facility] Specimen slightly hemolyzed, interpret results with caution Patients with high levels of Biotin oral intake (ie >5 mg/day) may have falsely decreased Troponin levels. [facility] Interpretation and review of laboratory results Normal [facility] Patients with high levels of Biotin oral intake (ie >5 mg/day) may have falsely decreased Troponin levels. [facility] Urinalysis complete panel (U )Ordered By: Jackson Her on 12-09-2023 Bacteria LM.HPF (Urine sed) [#/Area] Few Abnormal Negative /HPF [facility] Bilirubin Ql (U) Negative Negative mg/dL [facility] Clarity (U) Clear Clear [facility] Color (U) Light Yellow Lt. Yellow [facility] Epithelial cells.squamous LM.HPF (Urine sed) [#/Area] 0-2 [facility] Glucose Ql (U) 500 mg/dL Abnormal Normal (<70) [facility] Hemoglobin Ql (U) 0.06 mg/dL Abnormal Negative [facility] Hyaline casts Auto (Urine sed) [#/Area] 0-2 Abnormal Negative /LPF [facility] Interpretation and review of laboratory results Abnormal [facility] Ketones (U) [Mass/Vol] 10 mg/dL Abnormal Negative [facility] Leukocyte esterase Test strip Ql (U) 25 Abnormal Negative Kat/uL [facility] Mucus LM.HPF (Urine sed) [#/Area] Few Negative /LPF [facility] Nitrite Ql (U) Negative Negative [facility] Non-Squamous Epithalial Cells, Urine 0-2 Abnormal Negative /HPF [facility] pH (U) 6.0 [pH] 5.0 - 8.0 pH [facility] Protein (U) [Mass/Vol] 300 mg/dL Abnormal Negative [facility] RBC LM.HPF (Urine sed) [#/Area] 3-5 Abnormal [facility] Specific gravity (U) [Rel density] 1.021 1.005 - 1.030 [facility] Urobilinogen (U) [Mass/Vol] Normal Normal (0-1) mg/dL [facility] WBC LM.HPF (Urine sed) [#/Area] 6-10 Abnormal [facility] Vital signson 12-09-2023 Heart rate 87 /min bpm [facility] Oxygen saturation in Venous blood 64.1 % [facility] Comment on above: Performed by CLIA ID : [id number] [place], [place] ?Device: [id number] Chief Deputy Coroner ID: [id number] XR Chest Single viewon 12-09 Left basilar atelect asis Report Dictated on Electronically Signed By: Sergio Muniz MD Electronically Signed Date/Time: 12/09/2023 6:11 AM [facility] Patient [...] thoracic spine, likely diffuse idiopathic skeletal hyperostosis. [facility] Sergio Muniz MD - 12/09/2023 Patient [...] MD Electronically Signed Date/Time: 12/09/2023 6:11 AM [facility] [employer] Radiology Study observation (narrative) [employer] XR Chest Single viewOrdered By: Sergio Muniz on 12-09-2023 [employer] Work Phone: Basophil percentageOrdered B y: Jared Guzman on 11-23-2023 Chloride [Moles/Vol] 106 mmol/L 98-107 [facility] Glucose [Mass/Vol] 212 mg/dL 74-106 [facility] Comment on above: Glucose result great er than or equal to 200 mg/dLsuggests DIABETES MELLITUS per A.D.A. criteria. Hemoglobin (Bld) [Mass/Vol] 10.5 g/dL 12.0-15.0 [facility] Potassium [Moles/Vol] 5.0 mmol/L 3.5-5.1 [facility] Sodium [Moles/Vol] 136 mmol/L 136-145 [facility] WBC (Bld) [#/Vol] 7.5 10*3/uL 4.4-11.0 [facility] Determination of erythrocyte mean corpuscular volume (MCV)Ordered By: Jared Guzman on 11-23-2023 MCV (RBC) [Entitic vol] 87.7 fL 81-99 [facility] Erythrocyte distribution wid th ratioOrdered By: Jared Guzman on 11-23-2023 Erythrocyte distribution width (RBC) [Ratio] 13.7 % 11.6-14.6 [facility] Erythrocyte distribution wid th standard deviationOrdered By: Jared Guzman on 11-23-2023 Erythrocyte distribution width (RBC) [Entitic vol] 43.8 fL 35.1-43.9 [facility] Hematocrit Auto (Bld) [Volum e fraction]Ordered By: Jared Guzman on 11-23-2023 Hematocrit (Bld) [Volume fraction] 33.4 % 37-47 [facility] Iron measurement (mass/mass) Ordered By: Jared Guzman on 11-23-2023 Iron (Unsp spec) [Mass/Mass] 53 ug/dL 50-170 [facility] Laboratory - Chemistry and C hemistry - challengeOrdered By: Jared Guzman on 11-23-2023 CO2 [Moles/Vol] 24.0 mmol/L 21.0-32.0 [facility] Cobalamin (Vitamin B12) [Mass/Vol] 298 pg/mL 211-911 [facility] Ferritin [Mass/Vol] 68 ng/mL 8-252 [facility] Urea nitrogen/Creatinine [Mass ratio] 26.1 mg/mg 10-20 [facility] Laboratory - Hematology and Cell countsOrdered By: Jared Guzman on 11-23-2023 MCH (RBC) [Entitic mass] 27.6 pg 27.0-32.0 [facility] MCHC (RBC) [Mass/Vol] 31.4 g/dL 32-36 [facility] Platelets (Bld) [#/Vol] 347 10*3/uL 150-450 [facility] No Panel InformationOrdered By: Jared Guzman on 11-23-2023 Estimated GFR (MDRD) Amer 94 mL/min >60 [facility] Comment on above: GFR Calc Estimated GFR (MDRD) Non-Af Amer 78 mL/min >60 [facility] Comment on above: Non- GFR Calc Total Iron Binding Capacity 274 ug/dL 250-450 [facility] Platelet mean volume Miquel-Ec ker (Bld) [Entitic vol]Ordered By: Jared Guzman on 11-23-2023 Platelet mean volume (Bld) [Entitic vol] 10.4 fL 6.2-12.0 [facility] RBC Auto (Bld) [#/Vol]Ordere d By: Jared Guzman on 11-23-2023 RBC (Bld) [#/Vol] 3.81 10*6/uL 4.2-5.4 [facility] Serum mitochondria antibody detectionOrdered By: Jared Guzman on 11-23-2023 Mitochondria Ab Ql (S) <20.0 Units 0.0-20.0 [facility] Comment on above: Negative 0.0 - 20.0 Equivocal 20.1 - 24.9 Positive >24.9Mitochondrial (M2) Antibodies are found in 90-96% ofpatients with primary biliary cirrhosis.Performed at: [email or web address] [address] [id number] Director: Kb Lopez PhD, Phone: [phone] Serum or plasma IgG measurem ent (mass/volume)Ordered By: Jared Guzman on 11-23-2023 IgG [Mass/Vol] 622 mg/dL [phone] [facility] Comment on above: Performed at: [facility] [address] [id number] Director: Kb Lopez PhD, Phone: [phone] Serum or plasma bone alkalin e phosphatase/total alkaline phosphatase ratio (catalyticOrdered By: Jared Guzman on 11-23-2023 ALP Bone [Catalytic fraction] 31 % 14-68 [facility] Serum or plasma calcium mauricio urement (mass/volume)Ordered By: Jared Guzman on 11-23-2023 Calcium [Mass/Vol] 9.0 mg/dL 8.5-10.1 [facility] Serum or plasma creatinine m easurement (mass/volume)Ordered By: Jared Guzman on 11-23-2023 Creatinine [Mass/Vol] 0.80 mg/dL 0.55-1.02 [facility] Comment on above: The validity of the calculated GFR & GFRAA in patients over 70 years has not been determined. Clinical correlation is essential. Serum or plasma intestinal a lkaline phosphatase/total alkaline phosphatase ratio (catOrdered By: Jared Guzman on 11-23-2023 ALP Intest [Catalytic fraction] 12 % 0-18 [facility] Serum or plasma liver alkali ne phosphatase/total alkaline phosphatase ratio (catalytiOrdered By: Jared Guzman on 11-23-2023 ALP Liver [Catalytic fraction] 57 % 18-85 [facility] Serum or plasma urea nitroge n measurement (mass/volume)Ordered By: Jared Guzman on 11-23-2023 Urea nitrogen [Mass/Vol] 21 mg/dL 7-18 [facility] Thin prep Papanicolaou smear with manual screeningOrdered By: Jared Guzman on 11-23-2023 Thin prep Papanicolaou smear with manual screening 6 5-15 [facility] Thin prep Papanicolaou smear with manual screening 127 IU/L 44-121 [facility] CNPNon 11-22-2023 CNPN Telephone (GSTNOR) -------- WILL JACINTO ([id number]) 1965 F Date Time Provider Department 11/22/23 [...] Nurse Nabil advised lab orders faxed to [phone]. Allergies As of Date: 11/22/2023 (No Known Allergies) Date Reviewed: 11/17/2023 Reviewed by: Elda Reaves PA-C - Fully Assessed Reason for Visit: Results [95] Primary Visit Diagnosis:Anemia, unspecified type [D64.9] Other Visit Diagnosis:Elevated alkaline phosphatase level [R74.8] Order(s):ALK PHOS ISOENZYM BL [SQALKISO] Order #: [id number] FUTURE MITOCHONDRIAL M2 IGG SERUM [SQMITOS] Order #: [id number] FUTURE IRON + TIBC [SQIRON] Order #: [id number] FUTURE FERRITIN BLD [SQFERR] Order #: [id number] FUTURE VITAMIN B12 BLOOD [SQB12] Order #: [id number] FUTURE Prescriptions as of 11/22/2023 - atorvastatin [...] Status:Closed by BELIA CHACON on 11/22/23 Normal [facility] Absolute lymphocyte countOrd ered By: Jared Guzman on 11-18-2023 Lymphocytes Auto (Unsp spec) [#/Vol] 2.16 10*3/uL 0.83-4.51 [facility] Basophil percentageOrdered B y: Jared Guzman on 11-18-2023 Basophils/100 WBC (Bld) 0.8 % 0-1 [facility] Bilirubin [Mass/Vol] 0.40 mg/dL 0.20-1.00 [facility] Comment on above: For patients on eltr ombopag therapy, use of Dimension Ovid TBIL is not recommended. Chloride [Moles/Vol] 104 mmol/L 98-107 [facility] Eosinophils/100 WBC (Bld) 2.3 % 0-5 [facility] Glucose [Mass/Vol] 211 mg/dL 74-106 [facility] Comment on above: Glucose result great er than or equal to 200 mg/dLsuggests DIABETES MELLITUS per A.D.A. criteria. Neutrophils (Bld) [#/Vol] 5.2 10*3/uL 2.0-7.7 [facility] Neutrophils/100 WBC (Bld) 62.4 % 47-70 [facility] Potassium [Moles/Vol] 4.9 mmol/L 3.5-5.1 [facility] Protein [Mass/Vol] 6.3 g/dL 6.4-8.2 [facility] Sodium [Moles/Vol] 136 mmol/L 136-145 [facility] WBC (Bld) [#/Vol] 8.4 10*3/uL 4.4-11.0 [facility] Blood erythrocytes count (nu mber/volume)Ordered By: Jared Guzman on 11-18-2023 RBC (Bld) [#/Vol] 3.93 10*6/uL 4.2-5.4 [facility] Blood hemoglobin measurement (mass/volume)Ordered By: Jared Guzman on 11-18-2023 Hemoglobin (Bld) [Mass/Vol] 10.7 g/dL 12.0-15.0 [facility] Blood lymphocytes/100 leukoc ytesOrdered By: Jared Guzman on 11-18-2023 Lymphocytes/100 WBC (Bld) 25.7 % 19-41 [facility] Blood monocytes/100 leukocyt esOrdered By: Jared Guzman on 11-18-2023 Monocytes/100 WBC (Bld) 7.5 % 0-10 [facility] Blood platelet mean volumeOr dered By: Jared Guzman on 11-18-2023 Platelet mean volume (Bld) [Entitic vol] 10.1 fL 6.2-12.0 [facility] Determination of erythrocyte mean corpuscular volume (MCV)Ordered By: Jared Guzman on 11-18-2023 MCV (RBC) [Entitic vol] 88.5 fL 81-99 [facility] Hematocrit Auto (Bld) [Volum e fraction]Ordered By: Jared Guzman on 11-18-2023 Hematocrit (Bld) [Volume fraction] 34.8 % 37-47 [facility] Laboratory - Chemistry and C hemistry - challengeOrdered By: Jared Guzman on 11-18-2023 ALP [Catalytic activity/Vol] 155 U/L 45-117 [facility] ALT [Catalytic activity/Vol] 30 U/L 13-56 [facility] CO2 [Moles/Vol] 24.0 mmol/L 21.0-32.0 [facility] Globulin (S) [Mass/Vol] 3.5 g/dL 2.2-4.2 [facility] Lipase [Catalytic activity/Vol] 22 U/L 13-75 [facility] Comment on above: Please note:LIPASE r evised reference range effective 23. New Lipase methodology. Expected to produce lower values than the previous assay method. NEW Reference Range: 13 - 75 U/L Urea nitrogen/Creatinine [Mass ratio] 29.0 mg/mg 10-20 [facility] Laboratory - Hematology and Cell countsOrdered By: Jared Guzman on 11-18-2023 Erythrocyte distribution width (RBC) [Entitic vol] 44.7 fL 35.1-43.9 [facility] Erythrocyte distribution width (RBC) [Ratio] 13.8 % 11.6-14.6 [facility] Immature granulocytes/100 WBC (Bld) 1.300 % 0.0-0.9 [facility] Comment on above: IG% - Immature Granu locytes (promyelocytes, myelocytes and metamyelocytes) > 1% indicates that a LEFT SHIFT is Present. MCH (RBC) [Entitic mass] 27.2 pg 27.0-32.0 [facility] Nucleated RBC/100 WBC (Bld) [Ratio] 0 % 0-5 [facility] ([facility]) [Mass/Vol]Or dered By: Jared Guzman on 11-18-2023 MCHC (RBC) [Mass/Vol] 30.7 g/dL 32-36 [facility] No Panel InformationOrdered By: Jared Guzman on 11-18-2023 Endomysial IgA Antibody Negative Negative [facility] Estimated GFR (MDRD) Amer 87 mL/min >60 [facility] Comment on above: GFR Calc Estimated GFR (MDRD) Non-Af Amer 72 mL/min >60 [facility] Comment on above: Non- GFR Calc Platelets bldOrdered By: Mike Guzman on 11-18-2023 Platelets (Bld) [#/Vol] 340 10*3/uL 150-450 [facility] Serum IgA measurement (units /volume)Ordered By: Jared Guzman on 11-18-2023 IgA Qn (S) 224 mg/dL 87-352 [facility] Comment on above: Performed at: [facility] [place] [id number] Director: Kb Lopez PhD, Phone: [phone] Serum or plasma albumin mauricio urement (mass/volume)Ordered By: Jared Guzman on 11-18-2023 Albumin [Mass/Vol] 2.8 g/dL 3.2-5.0 [facility] Serum or plasma albumin/glob ulin mass ratioOrdered By: Jared Guzman on 11-18-2023 Albumin/Globulin [Mass ratio] 0.8 {ratio} 0.9-2.4 [facility] Serum or plasma calcium mauricio urement (mass/volume)Ordered By: Jared Guzman on 11-18-2023 Calcium [Mass/Vol] 9.2 mg/dL 8.5-10.1 [facility] Serum or plasma creatinine m easurement (mass/volume)Ordered By: Jared Guzman on 11-18-2023 Creatinine [Mass/Vol] 0.86 mg/dL 0.55-1.02 [facility] Comment on above: The validity of the calculated GFR & GFRAA in patients over 70 years has not been determined. Clinical correlation is essential. Serum or plasma urea nitroge n measurement (mass/volume)Ordered By: Jared Guzman on 11-18-2023 Urea nitrogen [Mass/Vol] 25 mg/dL 7-18 [facility] Serum tissue transglutaminas e IgA antibody assay (units/volume)Ordered By: Jared Guzman on 11-18-2023 tTG IgA Qn (S) <2 U/mL 0-3 [facility] Comment on above: Negative 0 - 3 Weak Positive 4 - 10 Positive >10 Tissue Transglutaminase (tTG) has been identified as the endomysial antigen. Studies have demonstr- ated that endomysial IgA antibodies have over 99% specificity for gluten sensitive enteropathy. Thin prep Papanicolaou smear with manual screeningOrdered By: Jared Guzman on 11-18-2023 Thin prep Papanicolaou smear with manual screening 11 U/L 15-37 [facility] Thin prep Papanicolaou smear with manual screening 8 5-15 [facility] CNOVon 11-17-2023 CNOV Office Visit ([facility]STNOR ) -------- WILL JACINTO ([id number]) 1965 F Date Time Provider Department 11/17/23 9:40 AM ELDA REAVES GSTNOR During your visit today, we recorded the following information about you: Pulse Blood pressure 77/minute 124/58 Elda Reaves PA-C 11/17/2023 10:00 AM Signed CHIEF COMPLAINT: Patient presents with: Nausea AND Vomiting HPI: Resident at [facility] and rehab. Will Jacinto is a 58 year old adult with PMHx positive for anxiety, bipolar, HTN, HLD, DM II who presents for Nausea AND Vomiting. On Protonix 40 mg daily. Recent [facility] admission 2/2 complications from DM, [...] bedtime. No (more content not included)... Normal [facility] Absolute lymphocyte countOrd ered By: Jared Guzman on 10-26-2023 Lymphocytes Auto (Unsp spec) [#/Vol] 1.95 10*3/uL 0.83-4.51 [facility] Basophil percentageOrdered B y: Jared Guzman on 10-26-2023 Basophils/100 WBC (Bld) 0.5 % 0-1 [facility] Chloride [Moles/Vol] 107 mmol/L 98-107 [facility] Eosinophils/100 WBC (Bld) 3.4 % 0-5 [facility] Glucose [Mass/Vol] 279 mg/dL 74-106 [facility] Comment on above: Glucose result great er than or equal to 200 mg/dLsuggests DIABETES MELLITUS per A.D.A. criteria. Neutrophils (Bld) [#/Vol] 3.6 10*3/uL 2.0-7.7 [facility] Neutrophils/100 WBC (Bld) 57.8 % 47-70 [facility] Potassium [Moles/Vol] 4.9 mmol/L 3.5-5.1 [facility] Sodium [Moles/Vol] 138 mmol/L 136-145 [facility] WBC (Bld) [#/Vol] 6.2 10*3/uL 4.4-11.0 [facility] Blood erythrocytes count (nu mber/volume)Ordered By: Jared Guzman on 10-26-2023 RBC (Bld) [#/Vol] 3.47 10*6/uL 4.2-5.4 [facility] Blood hemoglobin measurement (mass/volume)Ordered By: Jared Guzman on 10-26-2023 Hemoglobin (Bld) [Mass/Vol] 9.6 g/dL 12.0-15.0 [facility] Blood lymphocytes/100 leukoc ytesOrdered By: Jared Guzman on 10-26-2023 Lymphocytes/100 WBC (Bld) 31.3 % 19-41 [facility] Blood monocytes/100 leukocyt esOrdered By: Jared Guzman on 10-26-2023 Monocytes/100 WBC (Bld) 6.4 % 0-10 [facility] Blood platelet mean volumeOr dered By: Jared Guzman on 10-26-2023 Platelet mean volume (Bld) [Entitic vol] 10.3 fL 6.2-12.0 [facility] Determination of erythrocyte mean corpuscular volume (MCV)Ordered By: Jared Guzman on 10-26-2023 MCV (RBC) [Entitic vol] 89.6 fL 81-99 [facility] Hematocrit Auto (Bld) [Volum e fraction]Ordered By: Jared Guzman on 10-26-2023 Hematocrit (Bld) [Volume fraction] 31.1 % 37-47 [facility] Laboratory - Chemistry and C hemistry - challengeOrdered By: Jared Guzman on 10-26-2023 CO2 [Moles/Vol] 25.0 mmol/L 21.0-32.0 [facility] Urea nitrogen/Creatinine [Mass ratio] 26.6 mg/mg 10-20 [facility] Laboratory - Hematology and Cell countsOrdered By: Jared Guzman on 10-26-2023 Erythrocyte distribution width (RBC) [Entitic vol] 47.2 fL 35.1-43.9 [facility] Erythrocyte distribution width (RBC) [Ratio] 14.6 % 11.6-14.6 [facility] Immature granulocytes/100 WBC (Bld) 0.600 % 0.0-0.9 [facility] Comment on above: IG% - Immature Granu locytes (promyelocytes, myelocytes and metamyelocytes) > 1% indicates that a LEFT SHIFT is Present. MCH (RBC) [Entitic mass] 27.7 pg 27.0-32.0 [facility] Nucleated RBC/100 WBC (Bld) [Ratio] 0 % 0-5 [facility] MCHC Auto (RBC) [Mass/Vol]Or dered By: Jared Guzman on 10-26-2023 MCHC (RBC) [Mass/Vol] 30.9 g/dL 32-36 [facility] No Panel InformationOrdered By: Jared Guzman on 10-26-2023 Estimated GFR (MDRD) Amer 87 mL/min >60 [facility] Comment on above: GFR Calc Estimated GFR (MDRD) Non-Af Amer 72 mL/min >60 [facility] Comment on above: Non- GFR Calc Platelets bldOrdered By: Mike Guzman on 10-26-2023 Platelets (Bld) [#/Vol] 355 10*3/uL 150-450 [facility] Serum or plasma calcium mauricio urement (mass/volume)Ordered By: Jared Guzman on 10-26-2023 Calcium [Mass/Vol] 9.0 mg/dL 8.5-10.1 [facility] Serum or plasma creatinine m easurement (mass/volume)Ordered By: Jared Guzman on 10-26-2023 Creatinine [Mass/Vol] 0.87 mg/dL 0.55-1.02 [facility] Comment on above: The validity of the calculated GFR & GFRAA in patients over 70 years has not been determined. Clinical correlation is essential. Serum or plasma urea nitroge n measurement (mass/volume)Ordered By: Jared Guzman on 10-26-2023 Urea nitrogen [Mass/Vol] 23 mg/dL 7-18 [facility] Thin prep Papanicolaou smear with manual screeningOrdered By: Jared Guzman on 10-26-2023 Thin prep Papanicolaou smear with manual screening 6 5-15 [facility] Laboratory - Chemistry and C hemistry - challengeon 10-16-2023 Glucose [Mass/Vol] 289 mg/dL High 70 - 100 mg/dL [facility] Glucose [Mass/Vol] 346 mg/dL High 70 - 100 mg/dL [facility] Glucose [Mass/Vol] 304 mg/dL High 70 - 100 mg/dL [facility] Glucose [Mass/Vol] 312 mg/dL High 70 - 100 mg/dL [facility] No Panel Informationon 10-16 Interpretation and review of laboratory results Abnormal [facility] Interpretation and review of laboratory results Abnormal [facility] Interpretation and review of laboratory results Abnormal [facility] Interpretation and review of laboratory results Abnormal [facility] Glucose (Bld) [Mass/Vol]Orde red By: Eva Dalal on 10-15-2023 Glucose [Mass/Vol] 473 mg/dL Critically high 70 - 1 00 mg/dL [facility] Interpretation and review of laboratory results Abnormal [facility] Glucose (Bld) [Mass/Vol]Orde red By: Diane Islas on 10-15-2023 Glucose [Mass/Vol] 528 mg/dL Critically high 70 - 1 00 mg/dL [facility] Interpretation and review of laboratory results Abnormal [facility] Laboratory - Chemistry and C hemistry - challengeon 10-15-2023 Glucose [Mass/Vol] 262 mg/dL High 70 - 100 mg/dL [facility] Glucose [Mass/Vol] 289 mg/dL High 70 - 100 mg/dL [facility] Glucose [Mass/Vol] mg/dL High 70 - 100 mg/dL [facility] Glucose [Mass/Vol] mg/dL High 70 - 100 mg/dL [facility] No Panel Informationon 10-15 Interpretation and review of laboratory results Abnormal [facility] Interpretation and review of laboratory results Abnormal [facility] Interpretation and review of laboratory results Abnormal [facility] Interpretation and review of laboratory results Abnormal [facility] Bacteria identified Cx Nom ( Bld)on 10-14-2023 Interpretation and review of laboratory results Normal [facility] Basic metabolic 1998 panelon 10-14-2023 Anion gap [Moles/Vol] 7 mmol/L 3 - 13 mmol/L [facility] Calcium [Mass/Vol] 8.8 mg/dL 8.4 - 10. 4 mg/dL [facility] Chloride [Moles/Vol] 102 mmol/L 98 - 10 7 mmol/L [facility] CO2 [Moles/Vol] 25 mmol/L 22 - 30 mmol/L [facility] Creatinine [Mass/Vol] 0.98 mg/dL Male: 0.66-1.25 mg/dL; Female: 0.52-1.04 mg/dL [facility] GFR/1.73 sq M.predicted MDRD (S/P/Bld) [Vol rate/Area] 67.9 mL/min/{1.73_m2} - PINF [facility] Glucose [Mass/Vol] 250 mg/dL High 70 - 100 mg/dL [facility] Interpretation and review of laboratory results Abnormal [facility] [facility] Potassium [Moles/Vol] 3.9 mmol/L 3.5 - 5.1 mmol/L [facility] Sodium [Moles/Vol] 134 mmol/L Low 135 - 145 mmol/L [facility] Urea nitrogen [Mass/Vol] 35 mg/dL Male: 9-20 mg/dL; Female: 7-17 mg/dL [facility] Laboratory - Chemistry and C hemistry - challengeon 10-14-2023 Glucose [Mass/Vol] 305 mg/dL High 70 - 100 mg/dL [facility] Glucose [Mass/Vol] 338 mg/dL High 70 - 100 mg/dL [facility] Glucose [Mass/Vol] 360 mg/dL High 70 - 100 mg/dL [facility] Glucose [Mass/Vol] 268 mg/dL High 70 - 100 mg/dL [facility] Glucose [Mass/Vol] 235 mg/dL High 70 - 100 mg/dL [facility] Laboratory - Microbiology an d Antimicrobial susceptibilityon 10-14-2023 Bacteria identified Cx Nom (Bld) No growth at 5 days [facility] No Panel Informationon 10-14 Interpretation and review of laboratory results Abnormal [facility] Interpretation and review of laboratory results Abnormal [facility] Interpretation and review of laboratory results Abnormal [facility] Interpretation and review of laboratory results Abnormal [facility] Interpretation and review of laboratory results Abnormal [facility] Basic metabolic 1998 panelon 10-13-2023 Anion gap [Moles/Vol] 10 mmol/L 3 - 13 mmol/L [facility] Calcium [Mass/Vol] 8.5 mg/dL 8.4 - 10. 4 mg/dL [facility] Chloride [Moles/Vol] 95 mmol/L Low 98 - 10 7 mmol/L [facility] CO2 [Moles/Vol] 24 mmol/L 22 - 30 mmol/L [facility] Creatinine [Mass/Vol] 1.28 mg/dL Male: 0.66-1.25 mg/dL; Female: 0.52-1.04 mg/dL [facility] GFR/1.73 sq M.predicted MDRD (S/P/Bld) [Vol rate/Area] 49.3 mL/min/{1.73_m2} Low - PINF [facility] Glucose [Mass/Vol] 383 mg/dL High 70 - 100 mg/dL [facility] Interpretation and review of laboratory results Abnormal [facility] Potassium [Moles/Vol] 3.8 mmol/L 3.5 - 5.1 mmol/L [facility] Sodium [Moles/Vol] 129 mmol/L Low 135 - 145 mmol/L [facility] Urea nitrogen [Mass/Vol] 44 mg/dL Male: 9-20 mg/dL; Female: 7-17 mg/dL [facility] CBC panel Auto (Bld)on 10-13 Erythrocyte distribution width (RBC) [Ratio] 14.7 % High 11.5 - 14.5 % [facility] Hematocrit (Bld) [Volume fraction] 31.7 % Male: 40.0-52.0 %; Female: 35.0-47.0 % [facility] Hemoglobin (Bld) [Mass/Vol] 10.5 g/dL Low 11.7 - 18.0 g/dL [facility] Interpretation and review of laboratory results Abnormal [facility] MCH (RBC) [Entitic mass] 28.1 pg 26.0 - 34.0 pg [facility] MCHC (RBC) [Mass/Vol] 33.1 % 32.0 - 36.0 % [facility] MCV (RBC) [Entitic vol] 84.9 fL 80.0 - 98.0 fL [facility] Platelet mean volume (Bld) [Entitic vol] 7.4 fL 7.4 - 12.4 fL [facility] Platelets (Bld) [#/Vol] 324 10*3/uL 140 - 440 10*3/uL [facility] RBC (Bld) [#/Vol] 3.73 10*6/uL Male: 4.40-5.90; Female: 3.80-5.20 [facility] WBC (Bld) [#/Vol] 9.1 10*3/uL 3.6 - 10.7 10*3/uL [facility] Laboratory - Chemistry and C hemistry - challengeon 10-13-2023 Glucose [Mass/Vol] 232 mg/dL High 70 - 100 mg/dL [facility] Glucose [Mass/Vol] 243 mg/dL High 70 - 100 mg/dL [facility] Glucose [Mass/Vol] 241 mg/dL High 70 - 100 mg/dL [facility] Glucose [Mass/Vol] 311 mg/dL High 70 - 100 mg/dL [facility] Glucose [Mass/Vol] 446 mg/dL High 70 - 100 mg/dL [facility] Glucose [Mass/Vol] 435 mg/dL High 70 - 100 mg/dL [facility] Magnesium [Mass/Vol] 1.7 mg/dL 1.6 - 2 .3 mg/dL [facility] Magnesium [Mass/Vol]on 10-13 Interpretation and review of laboratory results Normal [facility] No Panel Informationon 10-13 Interpretation and review of laboratory results Abnormal [facility] Interpretation and review of laboratory results Abnormal [facility] Interpretation and review of laboratory results Abnormal [facility] Interpretation and review of laboratory results Abnormal [facility] Interpretation and review of laboratory results Abnormal [facility] Interpretation and review of laboratory results Abnormal [facility] Bacteria identified Cx Nom ( Bld)on 10-12-2023 Interpretation and review of laboratory results Normal [facility] Basic metabolic 1998 panelon 10-12-2023 Anion gap [Moles/Vol] 10 mmol/L 3 - 13 mmol/L [facility] Calcium [Mass/Vol] 9.4 mg/dL 8.4 - 10. 4 mg/dL [facility] Chloride [Moles/Vol] 97 mmol/L Low 98 - 10 7 mmol/L [facility] CO2 [Moles/Vol] 24 mmol/L 22 - 30 mmol/L [facility] Creatinine [Mass/Vol] 0.98 mg/dL Male: 0.66-1.25 mg/dL; Female: 0.52-1.04 mg/dL [facility] GFR/1.73 sq M.predicted MDRD (S/P/Bld) [Vol rate/Area] 67.9 mL/min/{1.73_m2} - PINF [facility] Glucose [Mass/Vol] 401 mg/dL High 70 - 100 mg/dL [facility] Interpretation and review of laboratory results Abnormal [facility] Potassium [Moles/Vol] 4.5 mmol/L 3.5 - 5.1 mmol/L [facility] Sodium [Moles/Vol] 131 mmol/L Low 135 - 145 mmol/L [facility] Urea nitrogen [Mass/Vol] 25 mg/dL Male: 9-20 mg/dL; Female: 7-17 mg/dL [facility] CBC panel Auto (Bld)Ordered By: Ioana Arriaga on 10-12-2023 Erythrocyte distribution width (RBC) [Ratio] 14.8 % High 11.5 - 14.5 % [facility] Hematocrit (Bld) [Volume fraction] 37.5 % Male: 40.0-52.0 %; Female: 35.0-47.0 % [facility] Hemoglobin (Bld) [Mass/Vol] 12.4 g/dL 11.7 - 18.0 g/dL [facility] Interpretation and review of laboratory results Abnormal [facility] MCH (RBC) [Entitic mass] 28.1 pg 26.0 - 34.0 pg [facility] MCHC (RBC) [Mass/Vol] 33.0 % 32.0 - 36.0 % [facility] MCV (RBC) [Entitic vol] 85.1 fL 80.0 - 98.0 fL [facility] Platelet mean volume (Bld) [Entitic vol] 7.5 fL 7.4 - 12.4 fL [facility] Platelets (Bld) [#/Vol] 355 10*3/uL 140 - 440 10*3/uL [facility] RBC (Bld) [#/Vol] 4.40 10*6/uL Male: 4.40-5.90; Female: 3.80-5.20 [facility] WBC (Bld) [#/Vol] 7.4 10*3/uL 3.6 - 10.7 10*3/uL [facility] Laboratory - Chemistry and C hemistry - challengeon 10-12-2023 Glucose [Mass/Vol] 359 mg/dL High 70 - 100 mg/dL [facility] Glucose [Mass/Vol] 327 mg/dL High 70 - 100 mg/dL [facility] Glucose [Mass/Vol] 364 mg/dL High 70 - 100 mg/dL [facility] Glucose [Mass/Vol] 304 mg/dL High 70 - 100 mg/dL [facility] Glucose [Mass/Vol] 411 mg/dL High 70 - 100 mg/dL [facility] Glucose [Mass/Vol] 387 mg/dL High 70 - 100 mg/dL [facility] Laboratory - Microbiology an d Antimicrobial susceptibilityon 10-12-2023 Bacteria identified Cx Nom (Bld) No growth at 5 days [facility] No Panel Informationon 10-12 Interpretation and review of laboratory results Abnormal [facility] Interpretation and review of laboratory results Abnormal [facility] Interpretation and review of laboratory results Abnormal [facility] Interpretation and review of laboratory results Abnormal [facility] Interpretation and review of laboratory results Abnormal [facility] Interpretation and review of laboratory results Abnormal [facility] XR Chest Single viewon 10-12 [facility] Radiology Study observation (narrative) [facility] XR Chest Single viewOrdered By: Alejandro Mooney on 10-12-2023 [facility] Work Phone: Bacteria identified Cx Nom ( Bld)Ordered By: Nayeli Reyna on 10-11-2023 Interpretation and review of laboratory results Abnormal [facility] CBC panel Auto (Bld)Ordered By: Alonzo Lee on 10-11-2023 Erythrocyte distribution width (RBC) [Ratio] 14.8 % High 11.5 - 14.5 % [facility] Hematocrit (Bld) [Volume fraction] 32.1 % Male: 40.0-52.0 %; Female: 35.0-47.0 % [facility] Hemoglobin (Bld) [Mass/Vol] 10.9 g/dL Low 11.7 - 18.0 g/dL [facility] Interpretation and review of laboratory results Abnormal [facility] MCH (RBC) [Entitic mass] 28.5 pg 26.0 - 34.0 pg [facility] MCHC (RBC) [Mass/Vol] 33.8 % 32.0 - 36.0 % [facility] MCV (RBC) [Entitic vol] 84.2 fL 80.0 - 98.0 fL [facility] Platelet mean volume (Bld) [Entitic vol] 7.9 fL 7.4 - 12.4 fL [facility] Platelets (Bld) [#/Vol] 347 10*3/uL 140 - 440 10*3/uL [facility] RBC (Bld) [#/Vol] 3.82 10*6/uL Male: 4.40-5.90; Female: 3.80-5.20 [facility] WBC (Bld) [#/Vol] 9.4 10*3/uL 3.6 - 10.7 10*3/uL [facility] Comprehensive metabolic 1998 panelon 10-11-2023 Albumin [Mass/Vol] 3.8 g/dL 3.5 - 5.0 g/dL [facility] ALP [Catalytic activity/Vol] 143 U/L High 38 - 126 U/L [facility] ALT [Catalytic activity/Vol] 28 U/L Male: 0-49 U/L; Female: 0-34 U/L [facility] Anion gap [Moles/Vol] 12 mmol/L 3 - 13 mmol/L [facility] AST [Catalytic activity/Vol] 20 U/L 15 - 46 U/L [facility] Bilirubin [Mass/Vol] 0.7 mg/dL 0.2 - 1 .3 mg/dL [facility] Calcium [Mass/Vol] 8.7 mg/dL 8.4 - 10. 4 mg/dL [facility] Chloride [Moles/Vol] 95 mmol/L Low 98 - 10 7 mmol/L [facility] CO2 [Moles/Vol] 22 mmol/L 22 - 30 mmol/L [facility] Creatinine [Mass/Vol] 1.30 mg/dL Male: 0.66-1.25 mg/dL; Female: 0.52-1.04 mg/dL [facility] GFR/1.73 sq M.predicted MDRD (S/P/Bld) [Vol rate/Area] 48.4 mL/min/{1.73_m2} Low - PINF [facility] Glucose [Mass/Vol] 397 mg/dL High 70 - 100 mg/dL [facility] Potassium [Moles/Vol] 4.2 mmol/L 3.5 - 5.1 mmol/L [facility] Protein [Mass/Vol] 6.5 g/dL 6.3 - 8.2 g/dL [facility] Sodium [Moles/Vol] 128 mmol/L Low 135 - 145 mmol/L [facility] Urea nitrogen [Mass/Vol] 28 mg/dL Male: 9-20 mg/dL; Female: 7-17 mg/dL [facility] Creatinine (U) [Mass/Vol]on 10-11-2023 CREATININE, URINE 10.6 mg/dL No Range [facility] Glucose (Bld) [Mass/Vol]Orde red By: Anna Figueroa on 10-11-2023 Glucose [Mass/Vol] 522 mg/dL Critically high 70 - 1 00 mg/dL [facility] Interpretation and review of laboratory results Abnormal [facility] Laboratory - Chemistry and C hemistry - challengeon 10-11-2023 Glucose [Mass/Vol] 401 mg/dL High 70 - 100 mg/dL [facility] Sodium (24H U) [Mass/Vol] 71 mmol/L 30 - 90 mmol/L [facility] Glucose [Mass/Vol] mg/dL High 70 - 100 mg/dL [facility] Glucose [Mass/Vol] mg/dL High 70 - 100 mg/dL [facility] Glucose [Mass/Vol] 447 mg/dL High 70 - 100 mg/dL [facility] Glucose [Mass/Vol] 354 mg/dL High 70 - 100 mg/dL [facility] Magnesium [Mass/Vol] 1.3 mg/dL Low 1.6 - 2 .3 mg/dL [facility] Glucose [Mass/Vol] 386 mg/dL High 70 - 100 mg/dL [facility] Laboratory - Microbiology an d Antimicrobial susceptibilityOrdered By: Nayeli Reyna on 10-11-2023 Bacteria identified Cx Nom (Bld) Acinetobacter lwoffii Critically abnormal [facility] No Panel Informationon 10-11 Interpretation and review of laboratory results Abnormal [facility] Interpretation and review of laboratory results Normal [facility] OSMOLALITY, URINE 318 [facility] Interpretation and review of laboratory results Normal [facility] Interpretation and review of laboratory results Abnormal [facility] Interpretation and review of laboratory results Abnormal [facility] Interpretation and review of laboratory results Abnormal [facility] Interpretation and review of laboratory results Abnormal [facility] Interpretation and review of laboratory results Abnormal [facility] Interpretation and review of laboratory results Abnormal [facility] Glucose (Bld) [Mass/Vol]Orde red By: Abner Vieyra on 10-10-2023 Glucose [Mass/Vol] 45 mg/dL Critically low 70 - 10 0 mg/dL [facility] Interpretation and review of laboratory results Abnormal [facility] Laboratory - Chemistry and C hemistry - challengeon 10-10-2023 Glucose [Mass/Vol] 404 mg/dL High 70 - 100 mg/dL [facility] Glucose [Mass/Vol] 405 mg/dL High 70 - 100 mg/dL [facility] Glucose [Mass/Vol] 353 mg/dL High 70 - 100 mg/dL [facility] Glucose [Mass/Vol] 253 mg/dL High 70 - 100 mg/dL [facility] Glucose [Mass/Vol] 254 mg/dL High 70 - 100 mg/dL [facility] Glucose [Mass/Vol] 258 mg/dL High 70 - 100 mg/dL [facility] Glucose [Mass/Vol] 248 mg/dL High 70 - 100 mg/dL [facility] Glucose [Mass/Vol] 101 mg/dL High 70 - 100 mg/dL [facility] Glucose [Mass/Vol] 67 mg/dL Low 70 - 100 mg/dL [facility] Glucose [Mass/Vol] mg/dL Low 70 - 100 mg/dL [facility] Glucose [Mass/Vol] mg/dL Low 70 - 100 mg/dL [facility] No Panel Informationon 10-10 Interpretation and review of laboratory results Abnormal [facility] Interpretation and review of laboratory results Abnormal [facility] Interpretation and review of laboratory results Abnormal [facility] Interpretation and review of laboratory results Abnormal [facility] Interpretation and review of laboratory results Abnormal [facility] Interpretation and review of laboratory results Abnormal [facility] Interpretation and review of laboratory results Abnormal [facility] Interpretation and review of laboratory results Abnormal [facility] Interpretation and review of laboratory results Abnormal [facility] Interpretation and review of laboratory results Abnormal [facility] Interpretation and review of laboratory results Abnormal [facility] Bacteria identified Cx Nom ( U)Ordered By: Tessy Gonzalez on 10-09-2023 Interpretation and review of laboratory results Normal [facility] Basic metabolic 1998 panelon 10-09-2023 Anion gap [Moles/Vol] 9 mmol/L 3 - 13 mmol/L [facility] Calcium [Mass/Vol] 8.7 mg/dL 8.4 - 10. 4 mg/dL [facility] Chloride [Moles/Vol] 98 mmol/L 98 - 10 7 mmol/L [facility] CO2 [Moles/Vol] 23 mmol/L 22 - 30 mmol/L [facility] Creatinine [Mass/Vol] 0.76 mg/dL Male: 0.66-1.25 mg/dL; Female: 0.52-1.04 mg/dL [facility] GFR/1.73 sq M.predicted MDRD (S/P/Bld) [Vol rate/Area] - PINF [facility] Glucose [Mass/Vol] 344 mg/dL High 70 - 100 mg/dL [facility] Interpretation and review of laboratory results Abnormal [facility] Potassium [Moles/Vol] 4.5 mmol/L 3.5 - 5.1 mmol/L [facility] Sodium [Moles/Vol] 130 mmol/L Low 135 - 145 mmol/L [facility] Urea nitrogen [Mass/Vol] 23 mg/dL Male: 9-20 mg/dL; Female: 7-17 mg/dL [facility] Laboratory - Chemistry and C hemistry - challengeon 10-09-2023 Glucose [Mass/Vol] 117 mg/dL High 70 - 100 mg/dL [facility] Glucose [Mass/Vol] 82 mg/dL 70 - 100 mg/dL [facility] Glucose [Mass/Vol] 176 mg/dL High 70 - 100 mg/dL [facility] Glucose [Mass/Vol] 210 mg/dL High 70 - 100 mg/dL [facility] Glucose [Mass/Vol] 207 mg/dL High 70 - 100 mg/dL [facility] Glucose [Mass/Vol] 318 mg/dL High 70 - 100 mg/dL [facility] Glucose [Mass/Vol] 377 mg/dL High 70 - 100 mg/dL [facility] Glucose [Mass/Vol] 337 mg/dL High 70 - 100 mg/dL [facility] Average glucose Estimated from glycated hemoglobin (Bld) [Mass/Vol] 174 mg/dL [facility] Laboratory - Drug toxicology on 10-09-2023 Vancomycin [Mass/Vol] 11.5 ug/mL Low 15.0 - 20.0 ug/mL [facility] Laboratory - Hematology and Cell countson 10-09-2023 HbA1c (Bld) [Mass fraction] 7.7 % High NINF - 5.7 % [facility] Laboratory - Microbiology an d Antimicrobial susceptibilityOrdered By: Tessy Gonzalez on 10-09-2023 Bacteria identified Cx Nom (U) No growth (<1,000 CFU/mL) [facility] No Panel Informationon 10-09 Interpretation and review of laboratory results Abnormal [facility] Interpretation and review of laboratory results Normal [facility] Interpretation and review of laboratory results Abnormal [facility] Interpretation and review of laboratory results Abnormal [facility] Interpretation and review of laboratory results Abnormal [facility] Interpretation and review of laboratory results Abnormal [facility] Interpretation and review of laboratory results Abnormal [facility] Interpretation and review of laboratory results Abnormal [facility] Interpretation and review of laboratory results Abnormal [facility] Interpretation and review of laboratory results Abnormal [facility] Basic metabolic 1998 panelon 10-08-2023 Anion gap [Moles/Vol] 8 mmol/L 3 - 13 mmol/L [facility] Calcium [Mass/Vol] 8.1 mg/dL Low 8.4 - 10. 4 mg/dL [facility] Chloride [Moles/Vol] 100 mmol/L 98 - 10 7 mmol/L [facility] CO2 [Moles/Vol] 22 mmol/L 22 - 30 mmol/L [facility] Creatinine [Mass/Vol] 1.09 mg/dL Male: 0.66-1.25 mg/dL; Female: 0.52-1.04 mg/dL [facility] GFR/1.73 sq M.predicted MDRD (S/P/Bld) [Vol rate/Area] 59.7 mL/min/{1.73_m2} Low - PINF [facility] Glucose [Mass/Vol] 288 mg/dL High 70 - 100 mg/dL [facility] Potassium [Moles/Vol] 4.2 mmol/L 3.5 - 5.1 mmol/L [facility] Sodium [Moles/Vol] 130 mmol/L Low 135 - 145 mmol/L [facility] Urea nitrogen [Mass/Vol] 34 mg/dL Male: 9-20 mg/dL; Female: 7-17 mg/dL [facility] CBC W Auto Differential pane l (Bld)Ordered By: Sixto Yao on 10-08-2023 Basophils (Bld) [#/Vol] 0.1 10*3/uL 0.0 - 0.2 10*3/uL [facility] Basophils/100 WBC (Bld) 0.8 % 0.0 - 2.0 % [facility] Eosinophils (Bld) [#/Vol] 0.1 10*3/uL 0.0 - 0.5 10*3/uL [facility] Eosinophils/100 WBC (Bld) 0.9 % Low 1.0 - 6.0 % [facility] Erythrocyte distribution width (RBC) [Ratio] 15.7 % High 11.5 - 14.5 % [facility] [employer] Hematocrit (Bld) [Volume fraction] 31.6 % Male: 40.0-52.0 %; Female: 35.0-47.0 % [facility] Hemoglobin (Bld) [Mass/Vol] 10.6 g/dL Low 11.7 - 18.0 g/dL [facility] Interpretation and review of laboratory results Abnormal [facility] Lymphocytes (Bld) [#/Vol] 2.7 10*3/uL 1.0 - 4.3 10*3/uL [facility] [facility] Lymphocytes/100 WBC (Bld) 26.5 % 20.0 - 40.0 % [facility] MCH (RBC) [Entitic mass] 28.5 pg 26.0 - 34.0 pg [facility] MCHC (RBC) [Mass/Vol] 33.5 % 32.0 - 36.0 % [facility] MCV (RBC) [Entitic vol] 84.9 fL 80.0 - 98.0 fL [facility] Monocytes (Bld) [#/Vol] 0.7 10*3/uL 0.0 - 0.8 10*3/uL [facility] Monocytes/100 WBC (Bld) 7.3 % 2.0 - 10.0 % [facility] Neutrophils (Bld) [#/Vol] 6.5 10*3/uL 1.8 - 7.0 10*3/uL [facility] Neutrophils/100 WBC (Bld) 64.5 % 40.0 - 80.0 % [facility] Nucleated RBC/100 WBC (Bld) [Ratio] 0.1 % [facility] Platelet mean volume (Bld) [Entitic vol] 8.3 fL 7.4 - 12.4 fL [facility] Platelets (Bld) [#/Vol] 339 10*3/uL 140 - 440 10*3/uL [facility] RBC (Bld) [#/Vol] 3.72 10*6/uL Male: 4.40-5.90; Female: 3.80-5.20 [facility] WBC (Bld) [#/Vol] 10.1 10*3/uL 3.6 - 10.7 10*3/uL [facility] CT Abdomen and Pelvis W cont rast Erica 10-08-2023 [facility] RADIOLOG[facility] SYSTEM [facility] Radiology Study observation (narrative) [facility] CT Abdomen and Pelvis W cont rast IVOrdered By: Bao Hill on 10-08-2023 [facility] Work Phone: Hepatic function 2000 panelo n 10-08-2023 Albumin [Mass/Vol] 3.2 g/dL Low 3.5 - 5.0 g/dL [facility] ALP [Catalytic activity/Vol] 143 U/L High 38 - 126 U/L [facility] ALT [Catalytic activity/Vol] 42 U/L Male: 0-49 U/L; Female: 0-34 U/L [facility] AST [Catalytic activity/Vol] 33 U/L 15 - 46 U/L [facility] Bilirubin [Mass/Vol] 0.9 mg/dL 0.2 - 1 .3 mg/dL [facility] Bilirubin.conjugated [Mass/Vol] 0.0 mg/dL 0.0 - 0.3 mg/dL [facility] Protein [Mass/Vol] 5.9 g/dL Low 6.3 - 8.2 g/dL [facility] Laboratory - Chemistry and C hemistry - challengeon 10-08-2023 Glucose [Mass/Vol] 373 mg/dL High 70 - 100 mg/dL [facility] Glucose [Mass/Vol] 348 mg/dL High 70 - 100 mg/dL [facility] Glucose [Mass/Vol] 386 mg/dL High 70 - 100 mg/dL [facility] Glucose [Mass/Vol] 271 mg/dL High 70 - 100 mg/dL [facility] Ammonia (P) [Moles/Vol] 29 umol/L 9 - 30 umol/L [facility] MRSA DNA YASIR+probe Ql (Nose) on 10-08-2023 Interpretation and review of laboratory results Abnormal [facility] mecA gene Detected Abnormal Not Detected [facility] Staphylococcus aureus Detected Abnormal Not Detected [facility] No Panel Informationon 10-08 Interpretation and review of laboratory results Abnormal [facility] Interpretation and review of laboratory results Abnormal [facility] Interpretation and review of laboratory results Abnormal [facility] Interpretation and review of laboratory results Abnormal [facility] Interpretation and review of laboratory results Abnormal [facility] Interpretation and review of laboratory results Normal [facility] No Panel InformationOrdered By: Memo Bergman on 10-08-2023 Targets Detected Not detected [facility] US Abdomen limitedon 023 [facility] RADI[facility] Radiology Study observation (narrative) [facility] Abdomen limitedOrdered By : Javy Urias on 10-08-2023 [facility] Work Phone: CBC W Auto Differential pane l (Bld)Ordered By: Olamide Espino on 10-07-2023 Basophils (Bld) [#/Vol] 0.0 10*3/uL 0.0 - 0.2 10*3/uL [facility] Basophils/100 WBC (Bld) 0.2 % 0.0 - 2.0 % [facility] Eosinophils (Bld) [#/Vol] 0.0 10*3/uL 0.0 - 0.5 10*3/uL [facility] Eosinophils/100 WBC (Bld) 0.2 % Low 1.0 - 6.0 % [facility] Erythrocyte distribution width (RBC) [Ratio] 14.2 % 11.5 - 14.5 % [facility] Hematocrit (Bld) [Volume fraction] 41.5 % Male: 40.0-52.0 %; Female: 35.0-47.0 % [facility] Hemoglobin (Bld) [Mass/Vol] 13.2 g/dL 11.7 - 18.0 g/dL [facility] Immature granulocytes (Bld) [#/Vol] 0.1 10*3/uL High NINF - 0.0 10*3/uL [facility] Immature granulocytes/100 WBC (Bld) 0.8 % High NINF - 0.0 % [facility] Interpretation and review of laboratory results Abnormal [facility] Lymphocytes (Bld) [#/Vol] 1.0 10*3/uL 1.0 - 4.3 10*3/uL [facility] Lymphocytes/100 WBC (Bld) 7.5 % Low 20.0 - 40.0 % [facility] MCH (RBC) [Entitic mass] 27.8 pg 26.0 - 34.0 pg [facility] MCHC (RBC) [Mass/Vol] 31.8 % Low 32.0 - 36.0 % [facility] MCV (RBC) [Entitic vol] 87.4 fL 80.0 - 98.0 fL [facility] Monocytes (Bld) [#/Vol] 0.8 10*3/uL 0.0 - 0.8 10*3/uL [facility] Monocytes/100 WBC (Bld) 5.9 % 2.0 - 10.0 % [facility] Neutrophils (Bld) [#/Vol] 11.3 10*3/uL High 1.8 - 7.0 10*3/uL [facility] Neutrophils/100 WBC (Bld) 85.4 % High 40.0 - 80.0 % [facility] Platelet mean volume (Bld) [Entitic vol] 9.4 fL 7.4 - 12.4 fL [facility] Platelets (Bld) [#/Vol] 438 10*3/uL 140 - 440 10*3/uL [facility] RBC (Bld) [#/Vol] 4.75 10*6/uL Male: 4.40-5.90; Female: 3.80-5.20 [facility] WBC (Bld) [#/Vol] 13.3 10*3/uL High 3.6 - 10.7 10*3/uL [facility] CT Head WO contraston 2022 Mild parenchymal vol ume loss. No evidence of acute intracranial process. 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 Report Dictated on Electronically Signed By: Angel Randhawa MD Electronically Signed Date/Time: 10/07/2023 7:47 AM EST [facility] Patient Name: WILL ALVARADO : 1965 [...] are not adequately visualized for proper evaluation. [facility] Angel Randhawa MD - 10/07/2023 [...] Electronically Signed Date/Time: 10/07/2023 7:47 AM EST [facility] RADIOLOGY SYSTEM [facility] RADIOLOG[facility] Radiology Study observation (narrative) [facility] CT Head WO contrastOrdered B y: Angel Randhawa on 10-07-2023 [facility] Work Phone: Comprehensive metabolic 1998 panelon 10-07-2023 Albumin [Mass/Vol] 4.1 g/dL 3.5 - 5.0 g/dL [facility] ALP [Catalytic activity/Vol] 133 U/L High 38 - 126 U/L [facility] ALT [Catalytic activity/Vol] 46 U/L Male: 0-49 U/L; Female: 0-34 U/L [facility] Anion gap [Moles/Vol] 11 mmol/L 3 - 13 mmol/L [facility] AST [Catalytic activity/Vol] 36 U/L 15 - 46 U/L [facility] Bilirubin [Mass/Vol] 0.4 mg/dL 0.2 - 1 .3 mg/dL [facility] Calcium [Mass/Vol] 8.8 mg/dL 8.4 - 10. 4 mg/dL [facility] Chloride [Moles/Vol] 100 mmol/L 98 - 10 7 mmol/L [facility] CO2 [Moles/Vol] 27 mmol/L 22 - 30 mmol/L [facility] Creatinine [Mass/Vol] 0.74 mg/dL Male: 0.66-1.25 mg/dL; Female: 0.52-1.04 mg/dL [facility] GFR/1.73 sq M.predicted MDRD (S/P/Bld) [Vol rate/Area] - PINF [facility] Glucose [Mass/Vol] 120 mg/dL High 70 - 100 mg/dL [facility] Interpretation and review of laboratory results Abnormal [facility] Potassium [Moles/Vol] 4.4 mmol/L 3.5 - 5.1 mmol/L [facility] Protein [Mass/Vol] 7.7 g/dL 6.3 - 8.2 g/dL [facility] Sodium [Moles/Vol] 138 mmol/L 135 - 145 mmol/L [facility] Urea nitrogen [Mass/Vol] 20 mg/dL Male: 9-20 mg/dL; Female: 7-17 mg/dL [facility] Ethanol (Bld) [Mass/Vol]on 12-07-2022 Ethanol [Mass/Vol] g/dL 0.000 - 0.010 g/dL [facility] Laboratory - Chemistry and C hemistry - challengeon 10-07-2023 Glucose [Mass/Vol] 267 mg/dL High 70 - 100 mg/dL [facility] Procalcitonin [Mass/Vol] 0.83 ng/mL High 0.00 - 0.09 ng/mL [facility] Lipase [Catalytic activity/Vol] 34 U/L 23 - 300 U/L [facility] Glucose [Mass/Vol] 176 mg/dL High 70 - 100 mg/dL [facility] Glucose [Mass/Vol] 111 mg/dL High 70 - 100 mg/dL [facility] Glucose [Mass/Vol] 81 mg/dL 70 - 100 mg/dL [facility] Glucose [Mass/Vol] 91 mg/dL 70 - 100 mg/dL [facility] Glucose [Mass/Vol] 100 mg/dL 70 - 100 mg/dL [facility] Glucose [Mass/Vol] 129 mg/dL High 70 - 100 mg/dL [facility] Glucose [Mass/Vol] 129 mg/dL [facility] Glucose [Mass/Vol] 129 mg/dL [facility] Glucose [Mass/Vol] 129 mg/dL High 70 - 100 mg/dL [facility] Glucose [Mass/Vol] 151 mg/dL [facility] Glucose [Mass/Vol] 151 mg/dL High 70 - 100 mg/dL [facility] Lactate [Moles/Vol] 1.2 mmol/L 0.7 - 2. 0 mmol/L [facility] Glucose [Mass/Vol] 100 mg/dL 70 - 100 mg/dL [facility] Glucose [Mass/Vol] 68 mg/dL Low 70 - 100 mg/dL [facility] Laboratory - Drug toxicology Ordered By: Annie Flynn on 10-07-2023 Amphetamines Screen method >1000 ng/mL Ql (U) Negative [facility] Barbiturates Screen method >200 ng/mL Ql (U) Negative [facility] Benzodiazepines Ql (U) Negative [facility] Methadone Screen Ql (U) Negative [facility] Opiates Screen Ql (U) Negative [facility] oxyCODONE Ql (U) Negative [facility] Phencyclidine Ql (U) Negative [facility] No Panel Informationon 10-07 Interpretation and review of laboratory results Abnormal [facility] Interpretation and review of laboratory results Normal [facility] Interpretation and review of laboratory results Abnormal [facility] Interpretation and review of laboratory results Abnormal [facility] Interpretation and review of laboratory results Normal [facility] Interpretation and review of laboratory results Normal [facility] Interpretation and review of laboratory results Normal [facility] Interpretation and review of laboratory results Abnormal [facility] Interpretation and review of laboratory results Normal [facility] Interpretation and review of laboratory results Normal [facility] Interpretation and review of laboratory results Abnormal [facility] Interpretation and review of laboratory results Normal [facility] Interpretation and review of laboratory results Abnormal [facility] Interpretation and review of laboratory results Normal [facility] Interpretation and review of laboratory results Normal [facility] Interpretation and review of laboratory results Abnormal [facility] No Panel InformationOrdered By: Annie Flynn on 10-07-2023 COCAINE METAB. SCREEN Negative [facility] Procalcitonin [Mass/Vol]on 12-07-2022 Interpretation and review of laboratory results Abnormal [facility] Respiratory pathogens DNA an d RNA panel YASIR+non-probe (Nph)on 10-07-2023 Adenovirus Not detected Not Detected [facility] B. pertussis DNA YASIR+probe Ql (Unsp spec) Not detected Not Detected [facility] Bordetella parapertussis Not detected Not Detected [facility] Chlamydia pneumoniae Not detected Not Detected [facility] Coronavirus 229E Not detected Not Detected [facility] Coronavirus HKU1 Not detected Not Detected [facility] Coronavirus NL63 Not detected Not Detected [facility] Coronavirus OC43 Not detected Not Detected [facility] FLUAV RNA YASIR+non-probe Ql (Nph) Not detected Not Detected [facility] FLUBV RNA YASIR+non-probe Ql (Nph) Not detected Not Detected [facility] Human Metapneumovirus Not detected Not Detected [facility] Human Rhinovirus/Enterovirus Not detected Not Detected [facility] Interpretation and review of laboratory results Normal [facility] Mycoplasma pneumoniae Not detected Not Detected [facility] Parainfluenza 1 Not detected Not Detected [facility] Parainfluenza 2 Not detected Not Detected [facility] Parainfluenza 3 Not detected Not Detected [facility] Parainfluenza 4 Not detected Not Detected [facility] Respiratory Syncytial Virus Not detected Not Detected [facility] SARS-CoV-2 (COVID-19) RNA YASIR+non-probe Ql (Nph) Not detected Not Detected [facility] Urinalysis complete panel (U )on 10-07-2023 Bacteria LM.HPF (Urine sed) [#/Area] Negative Negative /HPF [facility] Bilirubin Ql (U) Negative Negative mg/dL [facility] Clarity (U) Clear Clear [facility] Color (U) Yellow Lt. Yellow [facility] Epithelial cells.squamous LM.HPF (Urine sed) [#/Area] Negative [facility] Glucose Ql (U) 300 mg/dL Abnormal Normal (<70) [facility] Hemoglobin Ql (U) Negative Negative mg/dL [facility] Interpretation and review of laboratory results Abnormal [facility] Ketones (U) [Mass/Vol] Negative Negat bernard mg/dL [facility] Leukocyte esterase Test strip Ql (U) Negative Negative Kat/uL [facility] Mucus LM.HPF (Urine sed) [#/Area] Few Negative /LPF [facility] Nitrite Ql (U) Negative Negative [facility] pH (U) 6.0 [pH] 5.0 - 8.0 pH [facility] Protein (U) [Mass/Vol] 300 mg/dL Abnormal Negative [facility] RBC LM.HPF (Urine sed) [#/Area] 0-2 [facility] Specific gravity (U) [Rel density] 1.023 1.005 - 1.030 [facility] Urobilinogen (U) [Mass/Vol] Normal Normal (0-1) mg/dL [facility] Volume, Urine 12 mL [facility] WBC LM.HPF (Urine sed) [#/Area] 3-5 [facility] XR Chest Single viewon 10-07 [facility] RADI[facility] RADI[facility] Radiology Study observation (narrative) [facility] Whole blood hemoglobin A1c/t otal hemoglobin ratio (mass fraction)Ordered By: Jared Guzman on 09-20-2023 HbA1c (Bld) [Mass fraction] 7.3 % 3.8-5.6 [facility] Comment on above: Normal < 5.7 % Predi abetic 5.7 - 6.4 % Diabetic >or= 6.5 % Please note range changes. Basic metabolic 1998 panelon 08-19-2023 Anion gap [Moles/Vol] 5 mmol/L 3 - 13 mmol/L [facility] Calcium [Mass/Vol] 8.4 mg/dL 8.4 - 10. 4 mg/dL [facility] Chloride [Moles/Vol] 99 mmol/L 98 - 10 7 mmol/L [facility] CO2 [Moles/Vol] 26 mmol/L 22 - 30 mmol/L [facility] Creatinine [Mass/Vol] 1.00 mg/dL Male: 0.66-1.25 mg/dL; Female: 0.52-1.04 mg/dL [facility] GFR/1.73 sq M.predicted MDRD (S/P/Bld) [Vol rate/Area] 66.3 mL/min/{1.73_m2} - PINF [facility] Comment on above: Calculation based on the Chronic Kidney Disease Epidemiology Collaboration (CKD-EPI) equation refit without adjustment for race Glucose [Mass/Vol] 223 mg/dL High 70 - 100 mg/dL [facility] Interpretation and review of laboratory results Abnormal [facility] Potassium [Moles/Vol] 4.4 mmol/L 3.5 - 5.1 mmol/L [facility] Sodium [Moles/Vol] 130 mmol/L Low 135 - 145 mmol/L [facility] Urea nitrogen [Mass/Vol] 23 mg/dL Male: 9-20 mg/dL; Female: 7-17 mg/dL [facility] CBC panel Auto (Bld)Ordered By: Joel [place] on 08-19-2023 Erythrocyte distribution width (RBC) [Ratio] 15.3 % High 11.5 - 14.5 % [facility] Hematocrit (Bld) [Volume fraction] 36.3 % Male: 40.0-52.0 %; Female: 35.0-47.0 % [facility] Hemoglobin (Bld) [Mass/Vol] 12.2 g/dL 11.7 - 18.0 g/dL [facility] Interpretation and review of laboratory results Abnormal [facility] MCH (RBC) [Entitic mass] 27.7 pg 26.0 - 34.0 pg [facility] MCHC (RBC) [Mass/Vol] 33.7 % 32.0 - 36.0 % [facility] MCV (RBC) [Entitic vol] 82.2 fL 80.0 - 98.0 fL [facility] Platelet mean volume (Bld) [Entitic vol] 7.8 fL 7.4 - 12.4 fL [facility] Platelets (Bld) [#/Vol] 402 10*3/uL 140 - 440 10*3/uL [facility] RBC (Bld) [#/Vol] 4.41 10*6/uL Male: 4.40-5.90; Female: 3.80-5.20 [facility] WBC (Bld) [#/Vol] 8.6 10*3/uL 3.6 - 10.7 10*3/uL [facility] Laboratory - Chemistry and C hemistry - challengeon 08-19-2023 Glucose [Mass/Vol] 196 mg/dL High 70 - 100 mg/dL [facility] Glucose [Mass/Vol] 255 mg/dL High 70 - 100 mg/dL [facility] Glucose [Mass/Vol] 236 mg/dL High 70 - 100 mg/dL [facility] No Panel Informationon 08-19 Interpretation and review of laboratory results Abnormal [facility], [address] [facility] [address] CLIA ID: [id number] [facility] Interpretation and review of laboratory results Abnormal [facility]formed by: [facility], [address] [facility] [address] CLIA ID: [id number] [facility] Interpretation and review of laboratory results Abnormal [place] Performed by: [facility], [address] [place] [id number] CLIA ID: [id number] [facility] Sinus bradycardia Left bundle branch block Prolonged QT interval Compared to ECG 08/08/2023 06:58:13 Left bundle-branch block now present Electronically Signed On 08-19-2023 7:37:13 EDT by Nicolas Byrne D O - 08/19/2023 IMPRESSION: Sinus bradycardia Left bundle branch block Prolonged QT interval Compared to ECG 08/08/2023 06:58:13 Left bundle-branch block now present Electronically Signed On 08-19-2023 7:37:13 EDT by Nicolas Rose [facility] No Panel InformationOrdered By: Nicolas Rose on 08-19-2023 P [place] 40 degrees [facility] Work Phone: HI Interval 194 ms [facility] Work Phone: QRS [place] -30 degrees [facility] Work Phone: QRSD Interval 140 ms [facility] Work Phone: [phone] QT Interval 632 ms [facility] Work Phone: QTC Interval 563 ms [facility] Work Phone: T Wave [place] -4 degrees [facility] Work Phone: [facility] Work Phone: Vital signsOrdered By: Harman Rose on 08-19-2023 Heart rate 48 /min bpm [facility] Work Phone: Basic metabolic 1998 panelon 08-18-2023 Anion gap [Moles/Vol] 6 mmol/L 3 - 13 mmol/L [facility] Calcium [Mass/Vol] 8.0 mg/dL Low 8.4 - 10. 4 mg/dL [facility] Chloride [Moles/Vol] 100 mmol/L 98 - 10 7 mmol/L [facility] CO2 [Moles/Vol] 24 mmol/L 22 - 30 mmol/L [facility] Creatinine [Mass/Vol] 0.76 mg/dL Male: 0.66-1.25 mg/dL; Female: 0.52-1.04 mg/dL [facility] GFR/1.73 sq M.predicted MDRD (S/P/Bld) [Vol rate/Area] - PINF [facility] Comment on above: Calculation based on the Chronic Kidney Disease Epidemiology Collaboration (CKD-EPI) equation refit without adjustment for race Glucose [Mass/Vol] 311 mg/dL High 70 - 100 mg/dL [facility] Interpretation and review of laboratory results Abnormal [facility] Potassium [Moles/Vol] 4.2 mmol/L 3.5 - 5.1 mmol/L [facility] Sodium [Moles/Vol] 130 mmol/L Low 135 - 145 mmol/L [facility] Urea nitrogen [Mass/Vol] 24 mg/dL Male: 9-20 mg/dL; Female: 7-17 mg/dL [facility] CBC W Auto Differential pane l (Bld)Ordered By: Alex Kwok on 08-18-2023 Basophils (Bld) [#/Vol] 0.1 10*3/uL 0.0 - 0.2 10*3/uL [facility] Basophils/100 WBC (Bld) 0.7 % 0.0 - 2.0 % [facility] Eosinophils (Bld) [#/Vol] 0.2 10*3/uL 0.0 - 0.5 10*3/uL [facility] Eosinophils/100 WBC (Bld) 1.2 % 1.0 - 6.0 % [facility] Erythrocyte distribution width (RBC) [Ratio] 15.2 % High 11.5 - 14.5 % [facility] Hematocrit (Bld) [Volume fraction] 36.1 % Male: 40.0-52.0 %; Female: 35.0-47.0 % [facility] Hemoglobin (Bld) [Mass/Vol] 12.2 g/dL 11.7 - 18.0 g/dL [facility] Interpretation and review of laboratory results Abnormal [facility] Lymphocytes (Bld) [#/Vol] 2.3 10*3/uL 1.0 - 4.3 10*3/uL [facility] Lymphocytes/100 WBC (Bld) 17.5 % Low 20.0 - 40.0 % [facility] MCH (RBC) [Entitic mass] 28.2 pg 26.0 - 34.0 pg [facility] MCHC (RBC) [Mass/Vol] 33.9 % 32.0 - 36.0 % [facility] MCV (RBC) [Entitic vol] 83.0 fL 80.0 - 98.0 fL [facility] Monocytes (Bld) [#/Vol] 1.2 10*3/uL High 0.0 - 0.8 10*3/uL [facility] Monocytes/100 WBC (Bld) 8.8 % 2.0 - 10.0 % [facility] Neutrophils (Bld) [#/Vol] 9.5 10*3/uL High 1.8 - 7.0 10*3/uL [facility] Neutrophils/100 WBC (Bld) 71.8 % 40.0 - 80.0 % [facility] Nucleated RBC/100 WBC (Bld) [Ratio] 0.0 % [facility] Platelet mean volume (Bld) [Entitic vol] 7.7 fL 7.4 - 12.4 fL [facility] Platelets (Bld) [#/Vol] 388 10*3/uL 140 - 440 10*3/uL [facility] RBC (Bld) [#/Vol] 4.35 10*6/uL Male: 4.40-5.90; Female: 3.80-5.20 [facility] WBC (Bld) [#/Vol] 13.2 10*3/uL High 3.6 - 10.7 10*3/uL [facility] Laboratory - Chemistry and C hemistry - challengeon 08-18-2023 Glucose [Mass/Vol] 294 mg/dL High 70 - 100 mg/dL [facility] Glucose [Mass/Vol] 339 mg/dL High 70 - 100 mg/dL [facility] Glucose [Mass/Vol] 363 mg/dL High 70 - 100 mg/dL [facility] Glucose [Mass/Vol] 398 mg/dL High 70 - 100 mg/dL [facility] No Panel Informationon 08-18 Interpretation and review of laboratory results Abnormal [facility] Performed by: [facility], [address] [place] [address] [place] [address] CLIA ID: [id number] [facility] Interpretation and review of laboratory results Abnormal [facility] Performed by: [facility], [address], [facility] [address] CLIA ID: [id number] [facility] Interpretation and review of laboratory results Abnormal [facility] Performed by: [facility], [address], [facility] [address] CLIA ID: [id number] [facility] Interpretation and review of laboratory results Abnormal [facility] Performed by: [facility], [address], [facility] [address] CLIA ID: [id number] [facility] Basophil percentageon 2022 Sodium [Moles/Vol] 132 mmol/L 136-145 [facility] Basophil percentageOrdered B y: Jared Guzman on 08-17-2023 Bilirubin [Mass/Vol] 0.60 mg/dL 0.20-1.00 [facility] Comment on above: For patients on eltr ombopag therapy, use of Dimension Ovid TBIL is not recommended. Chloride [Moles/Vol] 100 mmol/L 98-107 [facility] Glucose [Mass/Vol] 240 mg/dL 74-106 [facility] Comment on above: Glucose result great er than or equal to 200 mg/dLsuggests DIABETES MELLITUS per A.D.A. criteria. Potassium [Moles/Vol] 4.3 mmol/L 3.5-5.1 [facility] Protein [Mass/Vol] 6.8 g/dL 6.4-8.2 [facility] WBC (Bld) [#/Vol] 9.3 10*3/uL 4.4-11.0 [facility] Blood erythrocytes count (nu mber/volume)Ordered By: Jared Guzman on 08-17-2023 RBC (Bld) [#/Vol] 4.64 10*6/uL 4.2-5.4 [facility] Blood hemoglobin measurement (mass/volume)Ordered By: Jared Guzman on 08-17-2023 Hemoglobin (Bld) [Mass/Vol] 12.4 g/dL 12.0-15.0 [facility] Blood platelet mean volumeOr dered By: Jared Guzman on 08-17-2023 Platelet mean volume (Bld) [Entitic vol] 9.8 fL 6.2-12.0 [facility] CBC W Auto Differential pane l (Bld)Ordered By: Bisi Bloom on 08-17-2023 Basophils (Bld) [#/Vol] 0.1 10*3/uL 0.0 - 0.2 10*3/uL [facility] Basophils/100 WBC (Bld) 0.8 % 0.0 - 2.0 % [facility] Eosinophils (Bld) [#/Vol] 0.1 10*3/uL 0.0 - 0.5 10*3/uL [facility] Eosinophils/100 WBC (Bld) 0.4 % Low 1.0 - 6.0 % [facility] Erythrocyte distribution width (RBC) [Ratio] 15.3 % High 11.5 - 14.5 % [facility] Hematocrit (Bld) [Volume fraction] 37.7 % Male: 40.0-52.0 %; Female: 35.0-47.0 % [facility] Hemoglobin (Bld) [Mass/Vol] 12.5 g/dL 11.7 - 18.0 g/dL [facility] Interpretation and review of laboratory results Abnormal [facility] Lymphocytes (Bld) [#/Vol] 3.6 10*3/uL 1.0 - 4.3 10*3/uL [facility] Lymphocytes/100 WBC (Bld) 24.4 % 20.0 - 40.0 % [facility] MCH (RBC) [Entitic mass] 27.2 pg 26.0 - 34.0 pg [facility] MCHC (RBC) [Mass/Vol] 33.1 % 32.0 [...] (Bld) 65.9 % 40.0 - 80.0 % [facility] Nucleated RBC/100 WBC (Bld) [Ratio] 0.0 % [facility] Platelet mean volume (Bld) [Entitic vol] 7.5 fL 7.4 - 12.4 fL [facility] Platelets (Bld) [#/Vol] 468 10*3/uL High 140 - 440 10*3/uL [facility] RBC (Bld) [#/Vol] 4.57 10*6/uL Male: 4.40-5.90; Female: 3.80-5.20 [facility] WBC (Bld) [#/Vol] 14.7 10*3/uL High 3.6 - 10.7 10*3/uL [facility] Abdomen and Pelvis W cont rast [...] MD Electronically Signed Date/Time: 08/17/2023 4:21 PM [facility] Patient [...] and increased in size since November 2020. [facility] Milton Guy MD - 08/17/2023 Patient [...] Electronically Signed Date/Time: 08/17/2023 4:21 PM EDT [facility] Radiology Study observation (narrative) [facility] CT Abdomen and Pelvis W cont rast IVOrdered By: Milton Guy on 08-17-2023 [facility] Work Phone: Comprehensive metabolic 1998 panelon 08-17-2023 Albumin [Mass/Vol] 4.0 g/dL 3.5 - 5.0 g/dL [facility] ALP [Catalytic activity/Vol] 136 U/L High 38 - 126 U/L [facility] ALT [Catalytic activity/Vol] 47 U/L Male: 0-49 U/L; Female: 0-34 U/L [facility] Anion gap [Moles/Vol] 4 mmol/L 3 - 13 mmol/L [facility] AST [Catalytic activity/Vol] 29 U/L 15 - 46 U/L [facility] Bilirubin [Mass/Vol] 0.5 mg/dL 0.2 - 1 .3 mg/dL [facility] Calcium [Mass/Vol] 8.8 mg/dL 8.4 - 10. 4 mg/dL [facility] Chloride [Moles/Vol] 99 mmol/L 98 - 10 7 mmol/L [facility] CO2 [Moles/Vol] 29 mmol/L 22 - 30 mmol/L [facility] Creatinine [Mass/Vol] 0.72 mg/dL Male: 0.66-1.25 mg/dL; Female: 0.52-1.04 mg/dL [facility] GFR/1.73 sq M.predicted MDRD (S/P/Bld) [Vol rate/Area] - PINF [facility] Comment on above: Calculation based on the Chronic Kidney Disease Epidemiology Collaboration (CKD-EPI) equation refit without adjustment for race Glucose [Mass/Vol] 71 mg/dL 70 - 100 mg/dL [facility] Interpretation and review of laboratory results Abnormal [facility] Potassium [Moles/Vol] 4.8 mmol/L 3.5 - 5.1 mmol/L [facility] Protein [Mass/Vol] 7.1 g/dL 6.3 - 8.2 g/dL [facility] Urea nitrogen [Mass/Vol] 17 mg/dL Male: 9-20 mg/dL; Female: 7-17 mg/dL [facility] Determination of erythrocyte mean corpuscular volume (MCV)Ordered By: Jared Guzman on 08-17-2023 MCV (RBC) [Entitic vol] 86.6 fL 81-99 [facility] Glucose (Bld) [Mass/Vol]Orde red By: Asuncion Buchanan on 08-17-2023 Glucose [Mass/Vol] 29 mg/dL Critically low 70 - 10 0 mg/dL [facility] Interpretation and review of laboratory results Abnormal [facility] Hematocrit Auto (Bld) [Volum e fraction]Ordered By: Jared Guzman on 08-17-2023 Hematocrit (Bld) [Volume fraction] 40.2 % 37-47 [facility] Laboratory - Chemistry and C hemistry - challengeon 08-17-2023 Glucose [Mass/Vol] 154 mg/dL High 70 - 100 mg/dL [facility] Glucose [Mass/Vol] 154 mg/dL [facility] Glucose [Mass/Vol] 154 mg/dL High 70 - 100 mg/dL [facility] Glucose [Mass/Vol] mg/dL Low 70 - 100 mg/dL [facility] Comment on above: Caregiver Notified; Confirmation Drawn; Lipase [Catalytic activity/Vol] 62 U/L 23 - 300 U/L [facility] Lactate [Moles/Vol] 1.1 mmol/L 0.7 - 2. 0 mmol/L [facility] Laboratory - Chemistry and C hemistry - challengeOrdered By: Jared Guzman on 08-17-2023 ALP [Catalytic activity/Vol] 156 U/L 45-117 [facility] ALT [Catalytic activity/Vol] 56 U/L 13-56 [facility] CO2 [Moles/Vol] 29.0 mmol/L 21.0-32.0 [facility] Globulin (S) [Mass/Vol] 3.7 g/dL 2.2-4.2 [facility] Urea nitrogen/Creatinine [Mass ratio] 20.6 mg/mg 10-20 [facility] Laboratory - Hematology and Cell countsOrdered By: Jared Guzman on 08-17-2023 Erythrocyte distribution width (RBC) [Entitic vol] 44.6 fL 35.1-43.9 [facility] Erythrocyte distribution width (RBC) [Ratio] 14.0 % 11.6-14.6 [facility] MCH (RBC) [Entitic mass] 26.7 pg 27.0-32.0 [facility] Lipase [Catalytic activity/V ol]on 08-17-2023 Interpretation and review of laboratory results Normal [facility] MCHC Auto (RBC) [Mass/Vol]Or dered By: Jared Guzman on 08-17-2023 MCHC (RBC) [Mass/Vol] 30.8 g/dL 32-36 [facility] No Panel Informationon 08-17 Interpretation and review of laboratory results Abnormal [facility] Performed by: [facility], [address] [place] [id number] CLIA ID: [id number] [facility] Interpretation and review of laboratory results Normal [facility] Interpretation and review of laboratory results Abnormal [facility] Performed by: [facility], [address] [facility] [address] CLIA ID: [id number] [facility] Interpretation and review of laboratory results Abnormal [facility] Performed by: [facility], [address] [facility] [address] CLIA ID: [id number] [facility] Interpretation and review of laboratory results Normal [facility] No Panel InformationOrdered By: Jared Guzman on 08-17-2023 Estimated GFR (MDRD) Amer 99 mL/min >60 [facility] Comment on above: GFR Calc Estimated GFR (MDRD) Non-Af Amer 81 mL/min >60 [facility] Comment on above: Non- GFR Calc Platelets bldOrdered By: Mike Guzman on 08-17-2023 Platelets (Bld) [#/Vol] 410 10*3/uL 150-450 [facility] Serum or plasma albumin mauricio urement (mass/volume)Ordered By: Jared Guzman on 08-17-2023 Albumin [Mass/Vol] 3.1 g/dL 3.2-5.0 [facility] Serum or plasma albumin/glob ulin mass ratioOrdered By: Jared Guzman on 08-17-2023 Albumin/Globulin [Mass ratio] 0.8 {ratio} 0.9-2.4 [facility] Serum or plasma calcium mauricio urement (mass/volume)Ordered By: Jared Guzman on 08-17-2023 Calcium [Mass/Vol] 9.1 mg/dL 8.5-10.1 [facility] Serum or plasma creatinine m easurement (mass/volume)Ordered By: Jared Guzman on 08-17-2023 Creatinine [Mass/Vol] 0.78 mg/dL 0.55-1.02 [facility] Comment on above: The validity of the calculated GFR & GFRAA in patients over 70 years has not been determined. Clinical correlation is essential. Serum or plasma urea nitroge n measurement (mass/volume)Ordered By: Jared Guzman on 08-17-2023 Urea nitrogen [Mass/Vol] 16 mg/dL 7-18 [facility] Thin prep Papanicolaou smear with manual screeningOrdered By: Jared Guzman on 08-17-2023 Thin prep Papanicolaou smear with manual screening 16 U/L 15-37 [facility] Thin prep Papanicolaou smear with manual screening 3 5-15 [facility] Urinalysis complete panel (U )Ordered By: Silvia Bone on 08-17-2023 Bacteria LM.HPF (Urine sed) [#/Area] Negative Negative /HPF [facility] Bilirubin Ql (U) Negative Negative mg/dL [facility] Clarity (U) Clear Clear [facility] Color (U) Yellow Lt. Yellow [facility] Epithelial cells.squamous LM.HPF (Urine sed) [#/Area] 0-2 [facility] Glucose Ql (U) 300 mg/dL Abnormal Normal (<70) [facility] Hemoglobin Ql (U) 0.06 mg/dL Abnormal Negative [facility] Hyaline casts Auto (Urine sed) [#/Area] 0-2 Abnormal Negative /LPF [facility] Interpretation and review of laboratory results Abnormal [facility] Ketones (U) [Mass/Vol] Negative Negat bernard mg/dL [facility] Leukocyte esterase Test strip Ql (U) Negative Negative Kat/uL [facility] Mucus LM.HPF (Urine sed) [#/Area] Few Negative /LPF [facility] Nitrite Ql (U) Negative Negative [facility] pH (U) 6.0 [pH] 5.0 - 8.0 pH [facility] Protein (U) [Mass/Vol] 300 mg/dL Abnormal Negative [facility] RBC LM.HPF (Urine sed) [#/Area] 3-5 Abnormal [facility] Specific gravity (U) [Rel density] 1.040 High 1.005 - 1.030 [facility] Urobilinogen (U) [Mass/Vol] 2 mg/dL Abnormal Normal (0-1) [facility] WBC LM.HPF (Urine sed) [#/Area] 3-5 [facility] Basic metabolic 1998 panelon 08-08-2023 Anion gap [Moles/Vol] 5 mmol/L 3 - 13 mmol/L [facility] Calcium [Mass/Vol] 8.9 mg/dL 8.4 - 10. 4 mg/dL [facility] Chloride [Moles/Vol] 97 mmol/L Low 98 - 10 7 mmol/L [facility] CO2 [Moles/Vol] 27 mmol/L 22 - 30 mmol/L [facility] Creatinine [Mass/Vol] 0.49 mg/dL Male: 0.66-1.25 mg/dL; Female: 0.52-1.04 mg/dL [facility] GFR/1.73 sq M.predicted MDRD (S/P/Bld) [Vol rate/Area] - PINF [facility] Comment on above: Calculation based on the Chronic Kidney Disease Epidemiology Collaboration (CKD-EPI) equation refit without adjustment for race Glucose [Mass/Vol] 253 mg/dL High 70 - 100 mg/dL [facility] Potassium [Moles/Vol] 5.0 mmol/L 3.5 - 5.1 mmol/L [facility] Sodium [Moles/Vol] 130 mmol/L Low 135 - 145 mmol/L [facility] Urea nitrogen [Mass/Vol] 13 mg/dL Male: 9-20 mg/dL; Female: 7-17 mg/dL [facility] Beta Hydroxybutyrateon 08-08 Beta hydroxybutyrate [Mass/Vol] 8.44 mg/dL High 0.20 - 2.81 mg/dL [facility] Interpretation and review of laboratory results Abnormal [facility] CBC panel Auto (Bld)Ordered By: Alex Kwok on 08-08-2023 Erythrocyte distribution width (RBC) [Ratio] 15.3 % High 11.5 - 14.5 % [facility] Hematocrit (Bld) [Volume fraction] 36.2 % Male: 40.0-52.0 %; Female: 35.0-47.0 % [facility] Hemoglobin (Bld) [Mass/Vol] 12.0 g/dL 11.7 - 18.0 g/dL [facility] Interpretation and review of laboratory results Abnormal [facility] MCH (RBC) [Entitic mass] 27.3 pg 26.0 - 34.0 pg [facility] MCHC (RBC) [Mass/Vol] 33.3 % 32.0 - 36.0 % [facility] MCV (RBC) [Entitic vol] 81.9 fL 80.0 - 98.0 fL [facility] Platelet mean volume (Bld) [Entitic vol] 7.6 fL 7.4 - 12.4 fL [facility] Platelets (Bld) [#/Vol] 364 10*3/uL 140 - 440 10*3/uL [facility] RBC (Bld) [#/Vol] 4.42 10*6/uL Male: 4.40-5.90; Female: 3.80-5.20 [facility] WBC (Bld) [#/Vol] 9.7 10*3/uL 3.6 - 10.7 10*3/uL [facility] CT Abdomen and Pelvis W cont [...] Electronically Signed Date/Time: 08/08/2023 8:43 AM EDT [facility] Radiology Study observation (narrative) [facility] ECG 12 leadon 08-08-2023 Heart rate 111 /min bpm [facility] P [place] 48 degrees [facility] HI Interval 164 ms [facility] QRS [place] -40 degrees [facility] QRSD Interval 116 ms [facility] QT Interval 363 ms [facility] QTC Interval 494 ms [facility] T Wave [place] 54 degrees [facility] Sinus tachycardia Left anterior fascicular block Left ventricular hypertrophy Borderline prolonged QT interval Compared to ECG 06/29/2023 06:27:39 Electronically Signed On 08-08-2023 7:02:41 EDT by Gayle Trevizo CV Gayle Mercedes MD - 08/08/2023 IMPRESSION: Sinus tachycardia Left anterior fascicular block Left ventricular hypertrophy Borderline prolonged QT interval Compared to ECG 06/29/2023 06:27:39 Electronically Signed On 08-08-2023 7:02:41 EDT by Gayle Trevizo [facility] Hepatic function 2000 panelo n 08-08-2023 Albumin [Mass/Vol] 4.0 g/dL 3.5 - 5.0 g/dL [facility] ALP [Catalytic activity/Vol] 156 U/L High 38 - 126 U/L [facility] ALT [Catalytic activity/Vol] 39 U/L Male: 0-49 U/L; Female: 0-34 U/L [facility] AST [Catalytic activity/Vol] 30 U/L 15 - 46 U/L [facility] Bilirubin [Mass/Vol] 0.5 mg/dL 0.2 - 1 .3 mg/dL [facility] Bilirubin.conjugated [Mass/Vol] 0.0 mg/dL 0.0 - 0.3 mg/dL [facility] Protein [Mass/Vol] 7.3 g/dL 6.3 - 8.2 g/dL [facility] Lipaseon 08-08-2023 Lipase [Catalytic activity/Vol] 34 U/L 23 - 300 U/L [facility] Lipase [Catalytic activity/V ol]on 08-08-2023 Interpretation and review of laboratory results Normal [facility] No Panel Informationon 08-08 [facility] Interpretation and review of laboratory results Abnormal [facility] POCT glucose meteron 023 Glucose [Mass/Vol] 251 mg/dL High 70 - 100 mg/dL [facility] Interpretation and review of laboratory results Abnormal [facility] Performed by: [facility], [address] [place] [id number] CLIA ID: [id number] [facility] POCT venous blood gason Base excess Calc (BldV) [Moles/Vol] 0.0 mmol/L -3 - 3 mmol/L [facility] CO2 (BldV) [Partial pressure] 35.7 mm[Hg] Low [facility] CO2 [Moles/Vol] 24.9 mmol/L 24.0 - 28.0 mmol/L [facility] Comment on above: Performed by CLIA ID : [id number] [place], [place] ?Device: [id number] Chief Deputy Coroner ID: [id number] [facility] HCO3 (Bld) [Moles/Vol] 23.8 mmol/L 23.0 - 27.0 mmol/L [facility] Interpretation and review of laboratory results Abnormal [facility] Oxygen (BldV) [Partial pressure] 40.4 mm[Hg] [facility] Oxygen saturation in Venous blood 77.5 % 60.0 - 80.0 % [facility] pH (BldV) 7.432 [pH] High 7.330 - 7.430 pH [facility] Performed by: [facility], [address] [place] [id number] CLIA ID: [id number] [facility] Troponin I.cardiac [Mass/Vol ]on 08-08-2023 Interpretation and review of laboratory results Normal [facility] Patients with high levels of Biotin oral intake (ie >5 mg/day) may have falsely decreased Troponin levels. [facility] Troponin, with Serial Reflex on 08-08-2023 Troponin I.cardiac [Mass/Vol] ng/mL NINF - 0.034 ng/mL [facility] Urinalysis complete panel (U )Ordered By: Jackson Her on 08-08-2023 Bacteria LM.HPF (Urine sed) [#/Area] Few Abnormal Negative /HPF [facility] Bilirubin Ql (U) Negative Negative mg/dL [facility] Clarity (U) Clear Clear [facility] [employer] Color (U) Light Yellow Lt. Yellow [facility] Epithelial cells.squamous LM.HPF (Urine sed) [#/Area] 0-2 [facility] Glucose Ql (U) 150 mg/dL Abnormal Normal (<70) [facility] Hemoglobin Ql (U) 0.06 mg/dL Abnormal Negative [facility] Interpretation and review of laboratory results Abnormal [facility] Ketones (U) [Mass/Vol] 10 mg/dL Abnormal Negative [facility] Leukocyte clumps LM.HPF (Urine sed) [#/Area] Rare Abnormal Negative /HPF [facility] Leukocyte esterase Test strip Ql (U) 250 Abnormal Negative Kat/uL [facility] Nitrite Ql (U) Negative Negative [facility] Non-Squamous Epithalial Cells, Urine 0-2 Abnormal Negative /HPF [facility] pH (U) 6.0 [pH] 5.0 - 8.0 pH [facility] Protein (U) [Mass/Vol] 200 mg/dL Abnormal Negative [facility] RBC LM.HPF (Urine sed) [#/Area] 3-5 Abnormal [facility] Specific gravity (U) [Rel density] High 1.005 - 1.030 [facility] Urobilinogen (U) [Mass/Vol] Normal Normal (0-1) mg/dL [facility] WBC LM.HPF (Urine sed) [#/Area] 6-10 Abnormal [facility] XR Chest Single viewon 08-08 Lungs clear with no acute cardiopulmonary disease process Report Dictated on Electronically Signed By: Chucho Stringer MD Electronically Signed Date/Time: 08/08/2023 7:16 AM [facility] [employer] RADIOLOGY SYSTEM Patient Name: WILL ALVARADO : [...] mediastinal contours are normal. VASCULARITY: Normal BONES:Unremarkable [facility] Yvette Stringer MD - 08/08/2023 [facility] Name: [facility] : 1965 [id number] Exam Date/Time: 08/08/2023 07:22 Procedure: XR CHEST [...] AM EDT [facility] Radiology Study observation (narrative) [facility] XR Chest Single viewOrdered By: Yvette Stringer on 08-08-2023 [facility] [employer] Work Phone: Basophil percentageOrdered B y: Jared Guzman on 08-04-2023 Chloride [Moles/Vol] 107 mmol/L 98-107 [facility] Glucose [Mass/Vol] 140 mg/dL 74-106 [facility] Comment on above: Fasting Glucose resu lt greater than or equal to 126 mg/dL suggests DIABETES MELLITUS per A.D.A. criteria. Potassium [Moles/Vol] 4.7 mmol/L 3.5-5.1 [facility] Sodium [Moles/Vol] 137 mmol/L 136-145 [facility] Laboratory - Chemistry and C hemistry - challengeOrdered By: Jared Guzman on 08-04-2023 CO2 [Moles/Vol] 27.0 mmol/L 21.0-32.0 [facility] Urea nitrogen/Creatinine [Mass ratio] 29.5 mg/mg 10-20 [facility] No Panel InformationOrdered By: Jared Guzman on 08-04-2023 Estimated GFR (MDRD) Amer 85 mL/min >60 [facility] Comment on above: GFR Calc Estimated GFR (MDRD) Non-Af Amer 71 mL/min >60 [facility] Comment on above: Non- GFR Calc Serum or plasma calcium muaricio urement (mass/volume)Ordered By: Jared Guzman on 08-04-2023 Calcium [Mass/Vol] 8.6 mg/dL 8.5-10.1 [facility] Serum or plasma creatinine m easurement (mass/volume)Ordered By: Jared Guzman on 08-04-2023 Creatinine [Mass/Vol] 0.88 mg/dL 0.55-1.02 [facility] Comment on above: The validity of the calculated GFR & GFRAA in patients over 70 years has not been determined. Clinical correlation is essential. Serum or plasma urea nitroge n measurement (mass/volume)Ordered By: Jared Guzman on 08-04-2023 Urea nitrogen [Mass/Vol] 26 mg/dL 7-18 [facility] Thin prep Papanicolaou smear with manual screeningOrdered By: Jared Guzman on 08-04-2023 Thin prep Papanicolaou smear with manual screening 3 5-15 [facility] Basophil percentageOrdered B y: Jared Guzman on 08-02-2023 Chloride [Moles/Vol] 102 mmol/L 98-107 [facility] Glucose [Mass/Vol] 393 mg/dL 74-106 [facility] Comment on above: Glucose result great er than or equal to 200 mg/dLsuggests DIABETES MELLITUS per A.D.A. criteria. Potassium [Moles/Vol] 6.1 mmol/L 3.5-5.1 [facility] Sodium [Moles/Vol] 131 mmol/L 136-145 [facility] WBC (Bld) [#/Vol] 6.7 10*3/uL 4.4-11.0 [facility] Blood erythrocytes count (nu mber/volume)Ordered By: Jared Guzman on 08-02-2023 RBC (Bld) [#/Vol] 3.97 10*6/uL 4.2-5.4 [facility] Blood hemoglobin measurement (mass/volume)Ordered By: Jared Guzman on 08-02-2023 Hemoglobin (Bld) [Mass/Vol] 10.9 g/dL 12.0-15.0 [facility] Blood platelet mean volumeOr dered By: Jared Guzman on 08-02-2023 Platelet mean volume (Bld) [Entitic vol] 10.3 fL 6.2-12.0 [facility] Determination of erythrocyte mean corpuscular volume (MCV)Ordered By: Jared Guzman on 08-02-2023 MCV (RBC) [Entitic vol] 88.9 fL 81-99 [facility] Hematocrit Auto (Bld) [Volum e fraction]Ordered By: Jared Guzman on 08-02-2023 Hematocrit (Bld) [Volume fraction] 35.3 % 37-47 [facility] Laboratory - Chemistry and C hemistry - challengeOrdered By: Jared Guzman on 08-02-2023 CO2 [Moles/Vol] 22.0 mmol/L 21.0-32.0 [facility] Urea nitrogen/Creatinine [Mass ratio] 26.2 mg/mg 10-20 [facility] Laboratory - Hematology and Cell countsOrdered By: Jared Guzman on 08-02-2023 Erythrocyte distribution width (RBC) [Entitic vol] 48.3 fL 35.1-43.9 [facility] Erythrocyte distribution width (RBC) [Ratio] 14.7 % 11.6-14.6 [facility] MCH (RBC) [Entitic mass] 27.5 pg 27.0-32.0 [facility] MCHC Auto (RBC) [Mass/Vol]Or dered By: Jared Guzman on 08-02-2023 MCHC (RBC) [Mass/Vol] 30.9 g/dL 32-36 [facility] No Panel InformationOrdered By: Jared Guzman on 08-02-2023 Estimated GFR (MDRD) Amer 86 mL/min >60 [facility] Comment on above: GFR Calc Estimated GFR (MDRD) Non-Af Amer 71 mL/min >60 [facility] Comment on above: Non- GFR Calc Platelets bldOrdered By: Mike Guzman on 08-02-2023 Platelets (Bld) [#/Vol] 342 10*3/uL 150-450 [facility] Serum or plasma calcium mauricio urement (mass/volume)Ordered By: Jared Guzman on 08-02-2023 Calcium [Mass/Vol] 8.8 mg/dL 8.5-10.1 [facility] Serum or plasma creatinine m easurement (mass/volume)Ordered By: Jared Guzman on 08-02-2023 Creatinine [Mass/Vol] 0.88 mg/dL 0.55-1.02 [facility] Comment on above: The validity of the calculated GFR & GFRAA in patients over 70 years has not been determined. Clinical correlation is essential. Serum or plasma urea nitroge n measurement (mass/volume)Ordered By: Jared Guzman on 08-02-2023 Urea nitrogen [Mass/Vol] 23 mg/dL 7-18 [facility] Thin prep Papanicolaou smear with manual screeningOrdered By: Jared Guzman on 08-02-2023 Thin prep Papanicolaou smear with manual screening 7 5-15 [facility] Basophil percentageOrdered B y: Jared Guzman on 07-05-2023 Bilirubin [Mass/Vol] 0.30 mg/dL 0.20-1.00 [facility] Comment on above: For patients on eltr ombopag therapy, use of Dimension Ovid TBIL is not recommended..Previous reported result: 0.30 mg/dLEdited by: PAULINE on 07/06/23:0945 AMENDED REPORT 07/06/2345 T BILI previously reported as: 0.30 mg/dL For patients on eltrombopag therapy, use of Dimension Ovid TBIL is not recommended. Chloride [Moles/Vol] 108 mmol/L 98-107 [facility] Comment on above: .Previous reported r esult: 108 mmol/LEdited by: PAULINE on 07/06/23:0945 AMENDED REPORT 07/06/23944 CL previously reported as: 108 H mmol/L Glucose [Mass/Vol] 149 mg/dL 74-106 [facility] Comment on above: Fasting Glucose resu lt greater than or equal to 126 mg/dL suggests DIABETES MELLITUS per A.D.A. criteria..Previous reported result: 149 mg/dLEdited by: PAULINE on 07/06/23:0943 AMENDED REPORT 07/06/23942 GLU previously reported as: 149 H mg/dL Fasting Glucose result greater than or equal to 126 mg/dL suggests DIABETES MELLITUS per A.D.A. criteria. Potassium [Moles/Vol] 4.4 mmol/L 3.5-5.1 [facility] Comment on above: .Previous reported r esult: 4.4 mmol/LEdited by: PAULINE on 07/06/23:0945 AMENDED REPORT 07/06/23944 K previously reported as: 4.4 mmol/L Protein [Mass/Vol] 6.3 g/dL 6.4-8.2 [facility] Comment on above: .Previous reported r esult: 6.3 g/dLEdited by: PAULINE on 07/06/23:0944 AMENDED REPORT 07/06/23943 T PROT previously reported as: 6.3 L g/dL Sodium [Moles/Vol] 138 mmol/L 136-145 [facility] Comment on above: .Previous reported r esult: 138 mmol/LEdited by: PAULINE on 07/06/23:0945 AMENDED REPORT 07/06/2345 NA previously reported as: 138 mmol/L WBC (Bld) [#/Vol] 7.0 10*3/uL 4.4-11.0 [facility] Comment on above: .Previous reported r esult: 7.0 K/wi0Ubsxjb by: PAULINE on 07/06/23:0941 AMENDED REPORT 07/06/23940 WBC previously reported as: 7.0 K/mm3 Blood erythrocytes count (nu mber/volume)Ordered By: Jared Guzman on 07-05-2023 RBC (Bld) [#/Vol] 4.01 10*6/uL 4.2-5.4 [facility] Comment on above: .Previous reported r esult: 4.01 M/pc2Ozfvhm by: PAULINE on 07/06/23:0941 AMENDED REPORT 07/06/23940 RBC previously reported as: 4.01 L M/mm3 Blood hemoglobin measurement (mass/volume)Ordered By: Jared Guzman on 07-05-2023 Hemoglobin (Bld) [Mass/Vol] 10.9 g/dL 12.0-15.0 [facility] Comment on above: .Previous reported r esult: 10.9 g/dLEdited by: PAULINE on 07/06/23:0941 AMENDED REPORT 07/06/23940 HGB previously reported as: 10.9 L g/dL Blood platelet mean volumeOr dered By: Jared Guzman on 07-05-2023 Platelet mean volume (Bld) [Entitic vol] 10.1 fL 6.2-12.0 [facility] Comment on above: .Previous reported r esult: 10.1 flEdited by: PAULINE on 07/06/23:0942 AMENDED REPORT 07/06/23941 MPV previously reported as: 10.1 fl Determination of erythrocyte mean corpuscular volume (MCV)Ordered By: Jared Guzman on 07-05-2023 MCV (RBC) [Entitic vol] 89.3 fL 81-99 [facility] Comment on above: .Previous reported r esult: 89.3 fLEdited by: PAULINE on 07/06/23:0942 AMENDED REPORT 07/06/23941 MCV previously reported as: 89.3 fL Hematocrit Auto (Bld) [Volum e fraction]Ordered By: Jared Guzman on 07-05-2023 Hematocrit (Bld) [Volume fraction] 35.8 % 37-47 [facility] Comment on above: .Previous reported r esult: 35.8 %Edited by: PAULINE on 07/06/23:0942 AMENDED REPORT 07/06/23941 HCT previously reported as: 35.8 L % Laboratory - Chemistry and C hemistry - challengeOrdered By: Jared Guzman on 07-05-2023 ALP [Catalytic activity/Vol] 155 U/L 45-117 [facility] Comment on above: ..Previous reported result: 155 U/LEdited by: PAULINE on 07/06/23:0945 AMENDED REPORT 07/06/2345 ALK P previously reported as: 155 H U/L ALT [Catalytic activity/Vol] 43 U/L 13-56 [facility] Comment on above: .Previous reported r esult: 43 U/LEdited by: PAULINE on 07/06/23:0945 AMENDED REPORT 07/06/2345 ALT previously reported as: 43 U/L CO2 [Moles/Vol] 26.0 mmol/L 21.0-32.0 [facility] Comment on above: .Previous reported r esult: 26.0 mmol/LEdited by: PAULINE on 07/06/23:0946 AMENDED REPORT 07/06/2346 CO2 previously reported as: 26.0 mmol/L Globulin (S) [Mass/Vol] 3.6 g/dL 2.2-4.2 [facility] Comment on above: .Previous reported r esult: 3.6 g/dLEdited by: PAULINE on 07/06/23:0944 AMENDED REPORT 07/06/2344 GLOB previously reported as: 3.6 g/dL Urea nitrogen/Creatinine [Mass ratio] 23.7 mg/mg 10-20 [facility] Comment on above: .Previous reported r esult: 23.5 RATIOEdited by: PAULINE on 07/06/23:0943 AMENDED REPORT 07/06/2343 BUN/CRE previously reported as: 23.5 H RATIO Laboratory - Hematology and Cell countsOrdered By: Jared Guzman on 07-05-2023 Erythrocyte distribution width (RBC) [Entitic vol] 47.5 fL 35.1-43.9 [facility] Comment on above: .Previous reported r esult: 47.5 flEdited by: PAULINE on 07/06/23:0942 AMENDED REPORT 07/06/2342 RDW SD previously reported as: 47.5 H fl Erythrocyte distribution width (RBC) [Ratio] 14.5 % 11.6-14.6 [facility] Comment on above: .Previous reported r esult: 14.5 %Edited by: PAULINE on 07/06/23:0942 AMENDED REPORT 07/06/23941 RDW CV previously reported as: 14.5 % MCH (RBC) [Entitic mass] 27.2 pg 27.0-32.0 [facility] Comment on above: .Previous reported r esult: 27.2 pgEdited by: PAULINE on 07/06/23:0942 AMENDED REPORT 07/06/23941 MCH previously reported as: 27.2 pg MCHC Auto (RBC) [Mass/Vol]Or dered By: Jared Guzman on 07-05-2023 MCHC (RBC) [Mass/Vol] 30.4 g/dL 32-36 [facility] Comment on above: .Previous reported r esult: 30.4 g/dLEdited by: PAULINE on 07/06/23:0942 AMENDED REPORT 07/06/23941 MCHC previously reported as: 30.4 L g/dL No Panel InformationOrdered By: Jared Guzman on 07-05-2023 Estimated GFR (MDRD) Amer 137 mL/min >60 [facility] Comment on above: GFR Calc.Previous reported result: 135 mL/minEdited by: PAULINE on 07/06/23:0943 AMENDED REPORT 07/06/23942 EST GFR - AA previously reported as: 135 mL/min GFR Calc Estimated GFR (MDRD) Non-Af Amer 113 mL/min >60 [facility] Comment on above: Non- GFR Calc.Previous reported result: 112 mL/minEdited by: PAULINE on 07/06/23:0943 AMENDED REPORT 07/06/23942 EST GFR previously reported as: 112 mL/min Non- GFR Calc Platelets bldOrdered By: Mkie Guzman on 07-05-2023 Platelets (Bld) [#/Vol] 352 10*3/uL 150-450 [facility] Comment on above: .Previous reported r esult: 352 K/db8Prbauk by: PAULINE on 07/06/23:0942 AMENDED REPORT 07/06/23941 PLT previously reported as: 352 K/mm3 Serum or plasma albumin mauricio urement (mass/volume)Ordered By: Jared Guzman on 07-05-2023 Albumin [Mass/Vol] 2.7 g/dL 3.2-5.0 [facility] Comment on above: .Previous reported r esult: 2.7 g/dLEdited by: PAULINE on 07/06/23:0944 AMENDED REPORT 07/06/23943 ALB previously reported as: 2.7 L g/dL Serum or plasma albumin/glob ulin mass ratioOrdered By: Jared Guzman on 07-05-2023 Albumin/Globulin [Mass ratio] 0.8 {ratio} 0.9-2.4 [facility] Comment on above: .Previous reported r esult: 0.8 RATIOEdited by: PAULINE on 07/06/23:0944 AMENDED REPORT 07/06/23943 A/G previously reported as: 0.8 L RATIO Serum or plasma calcium mauricio urement (mass/volume)Ordered By: Jared Guzman on 07-05-2023 Calcium [Mass/Vol] 8.8 mg/dL 8.5-10.1 [facility] Comment on above: .Previous reported r esult: 8.8 mg/dLEdited by: PAULINE on 07/06/23:0944 AMENDED REPORT 07/06/23943 CA previously reported as: 8.8 mg/dL Serum or plasma creatinine m easurement (mass/volume)Ordered By: Jared Guzman on 07-05-2023 Creatinine [Mass/Vol] 0.76 mg/dL 0.55-1.02 [facility] Comment on above: The validity [...] 07-05-2023 Urea nitrogen [Mass/Vol] 18 mg/dL 7-18 [facility] Comment on above: .Previous reported r esult: 18 mg/dLEdited by: PAULINE on 07/06/23:0943 AMENDED REPORT 07/06/2343 BUN previously reported as: 18 mg/dL Thin prep Papanicolaou smear with manual screeningOrdered By: Jared Guzman on 07-05-2023 Thin prep Papanicolaou smear with manual screening 15 U/L 15- [facility] Comment on above: .Previous reported r esult: 15 U/LEdited by: PAULINE on 07/06/23:0945 AMENDED REPORT 07/06/2345 AST previously reported as: 15 U/L Thin prep Papanicolaou smear with manual screening 4 03-22 [facility] Comment on above: .Previous reported r esult: 4 Edited by: PAULINE on 07/06/23:0946 AMENDED REPORT 07/06/2346 GAP previously reported as: 4 L Laboratory - Chemistry and C hemistry - challengeon 07-01-2023 Glucose [Mass/Vol] 391 mg/dL High 70 - 100 mg/dL [facility] [employer] Glucose [Mass/Vol] 242 mg/dL High 70 - 100 mg/dL [facility] [employer] No Panel Informationon 07-01 Interpretation and review of laboratory results Abnormal [facility] [employer] Performed by: [facility], [address] [facility] [address] CLIA ID: [id number] [facility] [employer] [facility] Interpretation and review of laboratory results Abnormal [facility] [employer] Performed by: [facility], [address] [facility] [address] CLIA ID: [id number] [facility] Laboratory - Chemistry and C hemistry - challengeon 06-30-2023 Glucose [Mass/Vol] 101 mg/dL High 70 - 100 mg/dL [facility] Glucose [Mass/Vol] 131 mg/dL High 70 - 100 mg/dL [facility] Glucose [Mass/Vol] 251 mg/dL High 70 - 100 mg/dL [facility] Glucose [Mass/Vol] 317 mg/dL High 70 - 100 mg/dL [facility] [employer] No Panel Informationon 06-30 Interpretation and review of laboratory results Abnormal [facility]formed by: [facility], [address] [facility] [address] CLIA ID: [id number] [facility] Interpretation and review of laboratory results Abnormal [facility] Performed by: [facility] [place], [address] [facility] [address] CLIA ID: [id number] [facility] [employer] [facility] Art Benavidez M D - 06/30/2023 IMPRESSION: Sinus rhythm Abnormal R-wave progression, late transition Left ventricular hypertrophy Electronically Signed On 06-30-2023 12:43:24 EDT by Art Benavidez [facility] [employer] Interpretation and review of laboratory results Abnormal [facility] [employer] Performed by: [facility] [place] [facility], [address] [place] [id number] CLIA ID: [id number] [facility] [employer] [facility] Interpretation and review of laboratory results Abnormal [facility] Performed by: [facility], [address] [place] [id number] CLIA ID: [id number] [facility] [employer] [facility] [employer] No Panel InformationOrdered By: Art Benavidez on 06-30-2023 P [place] 37 degrees [employer] Work Phone: HI Interval 166 ms [employer] Work Phone: QRS [place] -31 degrees [employer] Work Phone: QRSD Interval 112 ms [employer] Work Phone: QT Interval 413 ms [employer] Work Phone: QTC Interval 466 ms [employer] Work Phone: T Wave [place] 22 degrees [employer] Work Phone: [employer] Work Phone: Vital signsOrdered By: Laron Benavidez on 06-30-2023 Heart rate 76 /min bpm [facility] [employer] Work Phone: CBC panel Auto (Bld)Ordered By: Alex Kwok on 06-29-2023 Erythrocyte distribution width (RBC) [Ratio] 15.3 % High 11.5 - 14.5 % [facility] Hematocrit (Bld) [Volume fraction] 32.6 % [facility] Hemoglobin (Bld) [Mass/Vol] 10.8 g/dL Low 11.7 - 18.0 g/dL [facility] Interpretation and review of laboratory results Abnormal [facility] MCH (RBC) [Entitic mass] 27.5 pg 26.0 - 34.0 pg [facility] MCHC (RBC) [Mass/Vol] 33.2 % 32.0 - 36.0 % [facility] MCV (RBC) [Entitic vol] 82.9 fL 80.0 - 98.0 fL [facility] Platelet mean volume (Bld) [Entitic vol] 7.7 fL 7.4 - 12.4 fL [facility] Platelets (Bld) [#/Vol] 361 10*3/uL 140 - 440 10*3/uL [facility] RBC (Bld) [#/Vol] 3.94 10*6/uL [facility] WBC (Bld) [#/Vol] 9.2 10*3/uL 3.6 - 10.7 10*3/uL [facility] Comprehensive metabolic 1998 panelon 06-29-2023 Albumin [Mass/Vol] 3.4 g/dL Low 3.5 - 5.0 g/dL [facility] ALP [Catalytic activity/Vol] 121 U/L 38 - 126 U/L [facility] ALT [Catalytic activity/Vol] 41 U/L [facility] Anion gap [Moles/Vol] 6 mmol/L 3 - 13 mmol/L [facility] AST [Catalytic activity/Vol] 32 U/L 15 - 46 U/L [facility] Bilirubin [Mass/Vol] 0.3 mg/dL 0.2 - 1 .3 mg/dL [facility] Calcium [Mass/Vol] 8.3 mg/dL Low 8.4 - 10. 4 mg/dL [facility] Chloride [Moles/Vol] 103 mmol/L 98 - 10 7 mmol/L [facility] CO2 [Moles/Vol] 27 mmol/L 22 - 30 mmol/L [facility] Creatinine [Mass/Vol] 0.79 mg/dL [facility] GFR/1.73 sq M.predicted MDRD (S/P/Bld) [Vol rate/Area] 87.9 mL/min/{1.73_m2} - PINF [facility] Comment on above: Calculation based on the Chronic Kidney Disease Epidemiology Collaboration (CKD-EPI) equation refit without adjustment for race Glucose [Mass/Vol] 193 mg/dL High 70 - 100 mg/dL [facility] Interpretation and review of laboratory results Abnormal [facility] Potassium [Moles/Vol] 5.0 mmol/L 3.5 - 5.1 mmol/L [facility] Protein [Mass/Vol] 6.3 g/dL 6.3 - 8.2 g/dL [facility] Sodium [Moles/Vol] 136 mmol/L 135 - 145 mmol/L [facility] Urea nitrogen [Mass/Vol] 23 mg/dL [facility] Laboratory - Chemistry and C hemistry - challengeon 06-29-2023 Glucose [Mass/Vol] 180 mg/dL High 70 - 100 mg/dL [facility] Glucose [Mass/Vol] 338 mg/dL High 70 - 100 mg/dL [facility] Glucose [Mass/Vol] 244 mg/dL High 70 - 100 mg/dL [facility] Glucose [Mass/Vol] 234 mg/dL High 70 - 100 mg/dL [facility] No Panel Informationon 06-29 Interpretation and review of laboratory results Abnormal [facility]: [facility], [address] [place] [id number] CLIA ID: [id number] [facility] Interpretation and review of laboratory results Abnormal [facility] Performed by: [facility], [address] [place] [id number] CLIA ID: [id number] [facility] Interpretation and review of laboratory results Abnormal [facility] Performed by: [facility], [address] [place] [id number] CLIA ID: [id number] [facility] Interpretation and review of laboratory results Abnormal [facility] Performed by: [facility] [facility], [address] [place] [id number] CLIA ID: [id number] [facility] Basic metabolic 1998 panelon 06-28-2023 Anion gap [Moles/Vol] 7 mmol/L 3 - 13 mmol/L [facility] Calcium [Mass/Vol] 9.1 mg/dL 8.4 - 10. 4 mg/dL [facility] Chloride [Moles/Vol] 102 mmol/L 98 - 10 7 mmol/L [facility] CO2 [Moles/Vol] 24 mmol/L 22 - 30 mmol/L [facility] Creatinine [Mass/Vol] 0.64 mg/dL [facility] GFR/1.73 sq M.predicted MDRD (S/P/Bld) [Vol rate/Area] - PINF [facility] Comment on above: Calculation based on the Chronic Kidney Disease Epidemiology Collaboration (CKD-EPI) equation refit without adjustment for race Glucose [Mass/Vol] 194 mg/dL High 70 - 100 mg/dL [facility] Interpretation and review of laboratory results Abnormal [facility] Potassium [Moles/Vol] 5.0 mmol/L 3.5 - 5.1 mmol/L [facility] Sodium [Moles/Vol] 133 mmol/L Low 135 - 145 mmol/L [facility] Urea nitrogen [Mass/Vol] 20 mg/dL [facility] CBC W Auto Differential pane l (Bld)Ordered By: Joel [place] on 06-28-2023 Basophils (Bld) [#/Vol] 0.1 10*3/uL 0.0 - 0.2 10*3/uL [facility] Basophils/100 WBC (Bld) 0.6 % 0.0 - 2.0 % [facility] Eosinophils (Bld) [#/Vol] 0.0 10*3/uL 0.0 - 0.5 10*3/uL [facility] Eosinophils/100 WBC (Bld) 0.1 % Low 1.0 - 6.0 % [facility] Erythrocyte distribution width (RBC) [Ratio] 15.4 % High 11.5 - 14.5 % [facility] Hematocrit (Bld) [Volume fraction] 35.1 % [facility] Hemoglobin (Bld) [Mass/Vol] 11.6 g/dL Low 11.7 - 18.0 g/dL [facility] Interpretation and review of laboratory results Abnormal [facility] Lymphocytes (Bld) [#/Vol] 0.6 10*3/uL Low 1.0 [...] 10.6 10*3/uL High 1.8 - 7.0 10*3/uL [facility] Neutrophils/100 WBC (Bld) 90.3 % High 40.0 - 80.0 % [facility] Nucleated RBC/100 WBC (Bld) [Ratio] 0.0 % [facility] Platelet mean volume (Bld) [Entitic vol] 7.9 fL 7.4 - 12.4 fL [facility] Platelets (Bld) [#/Vol] 384 10*3/uL 140 - 440 10*3/uL [facility] RBC (Bld) [#/Vol] 4.26 10*6/uL [facility] WBC (Bld) [#/Vol] 11.8 10*3/uL High 3.6 - 10.7 10*3/uL [facility] CTA Chest vessels WO and W [...] Stringer MD - 06/28/2023 [facility] Name: [facility]ITO [facility] 1965 [id number] Exam Date/Time: 06/28/2023 03:49 Procedure: CT CHEST [...] Electronically Signed Date/Time: 06/28/2023 4:37 AM EDT [facility] Radiology Study observation (narrative) [facility] Laboratory - Chemistry and C hemistry - challengeon 06-28-2023 Glucose [Mass/Vol] 223 mg/dL High 70 - 100 mg/dL [facility] Glucose [Mass/Vol] 270 mg/dL High 70 - 100 mg/dL [facility] Troponin I.cardiac [Mass/Vol] ng/mL 0.000 - 0.034 ng/mL [facility] Glucose [Mass/Vol] 253 mg/dL High 70 - 100 mg/dL [facility] Glucose [Mass/Vol] 247 mg/dL High 70 - 100 mg/dL [facility] Troponin I.cardiac [Mass/Vol] ng/mL 0.000 - 0.034 ng/mL [facility] Natriuretic peptide B [Mass/ Vol]on 06-28-2023 Interpretation and review of laboratory results Normal [facility] Natriuretic peptide B (Bld) [Mass/Vol] 150 pg/mL <20 - 300 [facility] No Panel Informationon 06-28 Interpretation and review of laboratory results Abnormal [facility] Performed by: [facility], [address] [place] [id number] CLIA ID: [id number] [facility] Interpretation and review of laboratory results Abnormal [facility] Performed by: [facility], [address] [place] [id number] CLIA ID: [id number] [facility] Interpretation and review of laboratory results Abnormal [facility] Performed by: [facility], [address] [place] [id number] CLIA ID: [id number] [facility] Interpretation and review of laboratory results Abnormal [facility] Performed by: [facility], [address] [place] [address] CLIA ID: [id number] [facility] P [place] 44 degrees [facility] HI Interval 180 ms [facility] QRS [place] -37 degrees [facility] QRSD Interval 115 ms [facility] QT Interval 364 ms [facility] QTC Interval 481 ms [facility] T Wave [place] 53 degrees [facility] Sinus tachycardia Nonspecific IVCD with LAD Left ventricular hypertrophy Minimal ST elevation, anterolateral leads Electronically Signed On 06-28-2023 5:20:13 EDT by Rosaura Rosa, DO - 06/28/2023 IMPRESSION: Sinus tachycardia Nonspecific IVCD with LAD Left ventricular hypertrophy Minimal ST elevation, anterolateral leads Electronically Signed On 06-28-2023 5:20:13 EDT by Rosaura Mustafa [facility] Troponin I.cardiac [Mass/Vol ]on 06-28-2023 Interpretation and review of laboratory results Normal [facility] Patients with high levels of Biotin oral intake (ie >5 mg/day) may have falsely decreased Troponin levels. [facility] Interpretation and review of laboratory results Normal [facility] Patients with high levels of Biotin oral intake (ie >5 mg/day) may have falsely decreased Troponin levels. [facility] Vital signson 06-28-2023 Heart rate 105 /min bpm [facility] XR Chest Single viewon 06-28 Low lung volumes. No acute infiltrate or effusion. Report Dictated on Electronically Signed By: Chucho Stringer MD Electronically Signed Date/Time: 06/28/2023 3:08 AM T [facility] Patient [...] VASCULARITY: Normal BONES:Unremarkable SUPPORT LINES: None OTHER: [facility] Yvette Stringer MD - 06/28/2023 Patient Name: WILL [facility]ACINTO : 1965 [id number] Exam Date/Time: 06/28/2023 03:08 Procedure: XR CHEST [...] Electronically Signed Date/Time: 06/28/2023 3:08 AM EDT [facility] Radiology Study observation (narrative) [facility] XR Chest Single viewOrdered By: Yvette Stringer on 06-28-2023 [facility] Work Phone: Basophil percentageOrdered B y: Jared Guzman on 05-31-2023 Chloride [Moles/Vol] 106 mmol/L 98-107 [facility] Glucose [Mass/Vol] 227 mg/dL 74-106 [facility] Comment on above: Glucose result great er than or equal to 200 mg/dLsuggests DIABETES MELLITUS per A.D.A. criteria. Potassium [Moles/Vol] 4.8 mmol/L 3.5-5.1 [facility] Sodium [Moles/Vol] 137 mmol/L 136-145 [facility] WBC (Bld) [#/Vol] 7.7 10*3/uL 4.4-11.0 [facility] Blood erythrocytes count (nu mber/volume)Ordered By: Jared Guzman on 05-31-2023 RBC (Bld) [#/Vol] 3.90 10*6/uL 4.6-6.2 [facility] Blood hemoglobin measurement (mass/volume)Ordered By: Jared Guzman on 05-31-2023 Hemoglobin (Bld) [Mass/Vol] 10.4 g/dL 13.0-16.5 [facility] Blood platelet mean volumeOr dered By: Jared Guzman on 05-31-2023 Platelet mean volume (Bld) [Entitic vol] 9.9 fL 6.2-12.0 [facility] Determination of erythrocyte mean corpuscular volume (MCV)Ordered By: Jared Guzman on 05-31-2023 MCV (RBC) [Entitic vol] 89.7 fL 80-94 [facility] Hematocrit Auto (Bld) [Volum e fraction]Ordered By: Jared Guzman on 05-31-2023 Hematocrit (Bld) [Volume fraction] 35.0 % 40-54 [facility] Laboratory - Chemistry and C hemistry - challengeOrdered By: Jared Guzman on 05-31-2023 CO2 [Moles/Vol] 26.0 mmol/L 21.0-32.0 [facility] Urea nitrogen/Creatinine [Mass ratio] 31.0 mg/mg 10-20 [facility] - Hematology and Cell countsOrdered By: Jared Guzman on 05-31-2023 Erythrocyte distribution width (RBC) [Entitic vol] 46.2 fL 35.1-43.9 [facility] Erythrocyte distribution width (RBC) [Ratio] 14.3 % 11.6-14.6 [facility] MCH (RBC) [Entitic mass] 26.7 pg 27.0-32.0 [facility] MCHC Auto (RBC) [Mass/Vol]Or dered By: Jared Guzman on 05-31-2023 MCHC (RBC) [Mass/Vol] 29.7 g/dL 32-36 [facility] No Panel InformationOrdered By: Jared Guzman on 05-31-2023 Estimated GFR (MDRD) Amer 133 mL/min >60 [facility] Comment on above: GFR Calc Estimated GFR (MDRD) Non-Af Amer 110 mL/min >60 [facility] Comment on above: Non- GFR Calc Platelets bldOrdered By: Mike Guzman on 05-31-2023 Platelets (Bld) [#/Vol] 400 10*3/uL 150-450 [facility] Serum or plasma calcium mauricio urement (mass/volume)Ordered By: Jared Guzman on 05-31-2023 Calcium [Mass/Vol] 8.9 mg/dL 8.5-10.1 [facility] Serum or plasma creatinine m easurement (mass/volume)Ordered By: Jared Guzman on 05-31-2023 Creatinine [Mass/Vol] 0.78 mg/dL 0.70-1.30 [facility] Comment on above: The validity of the calculated GFR & GFRAA in patients over 70 years has not been determined. Clinical correlation is essential. Serum or plasma urea nitroge n measurement (mass/volume)Ordered By: Jared Guzman on 05-31-2023 Urea nitrogen [Mass/Vol] 24 mg/dL 7-18 [facility] Thin prep Papanicolaou smear with manual screeningOrdered By: Jared Guzman on 05-31-2023 Thin prep Papanicolaou smear with manual screening 5 5-15 [facility] Whole blood hemoglobin A1c/t otal hemoglobin ratio (mass fraction)Ordered By: Jared Guzman on 05-31-2023 HbA1c (Bld) [Mass fraction] 8.2 % 3.8-5.6 [facility] Comment on above: Normal < 5.7 % Predi abetic 5.7 - 6.4 % Diabetic >or= 6.5 % Please note range changes. Basophil percentageOrdered B y: Jared Guzman on 04-19-2023 Bilirubin [Mass/Vol] 0.20 mg/dL 0.20-1.00 [facility] Comment on above: For patients on eltr ombopag therapy, use of Dimension Ovid TBIL is not recommended. Chloride [Moles/Vol] 104 mmol/L 98-107 [facility] Cholesterol [Mass/Vol] 136 mg/dL <200 [facility] Comment on above: <200 mg/dL Desirable 200-240 mg/dL Borderline >240 mg/dL High Risk Glucose [Mass/Vol] 252 mg/dL 74-106 [facility] Comment on above: Glucose result great er than or equal to 200 mg/dLsuggests DIABETES MELLITUS per A.D.A. criteria. Potassium [Moles/Vol] 4.9 mmol/L 3.5-5.1 [facility] Protein [Mass/Vol] 6.5 g/dL 6.4-8.2 [facility] Sodium [Moles/Vol] 136 mmol/L 136-145 [facility] Triglyceride [Mass/Vol] 173 mg/dL <199 [facility] Comment on above: The drugs N-Acetylcy steine and Metamizole may falsely depress this assay.Serum Triglycerides Reference Interval Normal <150 mg/dL Borderline high 150 - 199 mg/dL High 200 - 499 mg/dL Very High > or = 500 mg/dL WBC (Bld) [#/Vol] 7.4 10*3/uL 4.4-11.0 [facility] Blood erythrocytes count (nu mber/volume)Ordered By: Jared Guzman on 04-19-2023 RBC (Bld) [#/Vol] 4.12 10*6/uL 4.6-6.2 [facility] Blood hemoglobin measurement (mass/volume)Ordered By: Jared Guzman on 04-19-2023 Hemoglobin (Bld) [Mass/Vol] 11.2 g/dL 13.0-16.5 [facility] Blood platelet mean volumeOr dered By: Jared Guzman on 04-19-2023 Platelet mean volume (Bld) [Entitic vol] 10.2 fL 6.2-12.0 [facility] Determination of erythrocyte mean corpuscular volume (MCV)Ordered By: Jared Guzman on 04-19-2023 MCV (RBC) [Entitic vol] 90.8 fL 80-94 [facility] Hematocrit Auto (Bld) [Volum e fraction]Ordered By: Jared Guzman on 04-19-2023 Hematocrit (Bld) [Volume fraction] 37.4 % 40-54 [facility] - Chemistry and C hemistry - challengeOrdered By: Jared Guzman on 04-19-2023 ALP [Catalytic activity/Vol] 176 U/L 45-117 [facility] ALT [Catalytic activity/Vol] 39 U/L 16-61 [facility] CO2 [Moles/Vol] 26.0 mmol/L 21.0-32.0 [facility] Globulin (S) [Mass/Vol] 3.5 g/dL 2.2-4.2 [facility] Urea nitrogen/Creatinine [Mass ratio] 23.7 mg/mg 10-20 [facility] - Hematology and Cell countsOrdered By: Jared Guzman on 04-19-2023 Erythrocyte distribution width (RBC) [Entitic vol] 46.9 fL 35.1-43.9 [facility] Erythrocyte distribution width (RBC) [Ratio] 14.1 % 11.6-14.6 [facility] MCH (RBC) [Entitic mass] 27.2 pg 27.0-32.0 [facility] MCHC Auto (RBC) [Mass/Vol]Or dered By: Jared Guzman on 04-19-2023 MCHC (RBC) [Mass/Vol] 29.9 g/dL 32-36 [facility] No Panel InformationOrdered By: Jared Guzman on 04-19-2023 Estimated GFR (MDRD) Amer 128 mL/min >60 [facility] Comment on above: GFR Calc Estimated GFR (MDRD) Non-Af Amer 106 mL/min >60 [facility] Comment on above: Non- GFR Calc Platelets bldOrdered By: Mike Guzman on 04-19-2023 Platelets (Bld) [#/Vol] 361 10*3/uL 150-450 [facility] Serum or plasma albumin mauricio urement (mass/volume)Ordered By: Jared Guzman on 04-19-2023 Albumin [Mass/Vol] 3.0 g/dL 3.2-5.0 [facility] Serum or plasma albumin/glob ulin mass ratioOrdered By: Jared Guzman on 04-19-2023 Albumin/Globulin [Mass ratio] 0.9 {ratio} 0.9-2.4 [facility] Serum or plasma calcium mauricio urement (mass/volume)Ordered By: Jared Guzman on 04-19-2023 Calcium [Mass/Vol] 8.8 mg/dL 8.5-10.1 [facility] Serum or plasma cholesterol in HDL measurement (mass/volume)Ordered By: Jared Guzman on 04-19-2023 Cholesterol in HDL [Mass/Vol] 33 mg/dL >40 [facility] Comment on above: The drugs N-Acetylcy steine and Metamizole may falsely depress this assay. Reference Range HDL <40 mg/dL Low HDL Cholesterol HDL >or= 60 mg/dL High HDL Cholesterol Serum or plasma cholesterol in VLDL measurement (mass/volume)Ordered By: Jared Guzman on 04-19-2023 Cholesterol in VLDL [Mass/Vol] 35 mg/dL 5-40 [facility] Serum or plasma creatinine m easurement (mass/volume)Ordered By: Jared Guzman on 04-19-2023 Creatinine [Mass/Vol] 0.80 mg/dL 0.70-1.30 [facility] Comment on above: The validity of the calculated GFR & GFRAA in patients over 70 years has not been determined. Clinical correlation is essential. Serum or plasma low density lipoprotein (LDL) cholesterol measurement (mass/volume)Ordered By: Jared Guzman on 04-19-2023 Cholesterol in LDL [Mass/Vol] 68 mg/dL 0-130 [facility] Serum or plasma urea nitroge n measurement (mass/volume)Ordered By: Jared Guzman on 04-19-2023 Urea nitrogen [Mass/Vol] 19 mg/dL 7-18 [facility] Thin prep Papanicolaou smear with manual screeningOrdered By: Jared Guzman on 04-19-2023 Thin prep Papanicolaou smear with manual screening 21 U/L 15-37 [facility] Thin prep Papanicolaou smear with manual screening 6 5-15 [facility] Whole blood hemoglobin A1c/t otal hemoglobin ratio (mass fraction)Ordered By: Jared Guzman on 04-19-2023 HbA1c (Bld) [Mass fraction] 9.0 % 3.8-5.6 [facility] Comment on above: Normal < 5.7 % Predi abetic 5.7 - 6.4 % Diabetic >or= 6.5 % Please note range changes. Whole blood hemoglobin A1c/t otal hemoglobin ratio (mass fraction)Ordered By: Jared Guzman on 03-30-2023 HbA1c (Bld) [Mass fraction] 9.4 % 3.8-5.6 [facility] Comment on above: Normal < 5.7 % Predi abetic 5.7 - 6.4 % Diabetic >or= 6.5 % Please note range changes. Basophil percentageOrdered B y: Jared Guzman on 03-15-2023 Cholesterol [Mass/Vol] 142 mg/dL <200 [facility] Comment on above: <200 mg/dL Desirable 200-240 mg/dL Borderline >240 mg/dL High Risk Triglyceride [Mass/Vol] 149 mg/dL <199 [facility] Comment on above: The drugs N-Acetylcy steine and Metamizole may falsely depress this assay.Serum Triglycerides Reference Interval Normal <150 mg/dL Borderline high 150 - 199 mg/dL High 200 - 499 mg/dL Very High > or = 500 mg/dL Serum or plasma cholesterol in HDL measurement (mass/volume)Ordered By: Jared Guzman on 03-15-2023 Cholesterol in HDL [Mass/Vol] 32 mg/dL >40 [facility] Comment on above: The drugs N-Acetylcy steine and Metamizole may falsely depress this assay. Reference Range HDL <40 mg/dL Low HDL Cholesterol HDL >or= 60 mg/dL High HDL Cholesterol Serum or plasma cholesterol in VLDL measurement (mass/volume)Ordered By: Jared Guzman on 03-15-2023 Cholesterol in VLDL [Mass/Vol] 30 mg/dL 5-40 [facility] Serum or plasma low density lipoprotein (LDL) cholesterol measurement (mass/volume)Ordered By: Jared Guzman on 03-15-2023 Cholesterol in LDL [Mass/Vol] 80 mg/dL 0-130 [facility] Beta Hydroxybutyrateon 03-08 Beta hydroxybutyrate [Mass/Vol] 1.94 mg/dL 0.20 - 2.81 mg/dL [facility] Interpretation and review of laboratory results Normal [facility] CBC W Auto Differential pane l (Bld)Ordered By: Hina Jaramillo on 03-08-2023 Basophils (Bld) [#/Vol] 0.1 10*3/uL 0.0 - 0.2 10*3/uL [facility] Basophils/100 WBC (Bld) 0.5 % 0.0 - 2.0 % [facility] Eosinophils (Bld) [#/Vol] 0.1 10*3/uL 0.0 - 0.5 10*3/uL [facility] Eosinophils/100 WBC (Bld) 0.4 % Low 1.0 - 6.0 % [facility] Erythrocyte distribution width (RBC) [Ratio] 14.6 % High 11.5 - 14.5 % [facility] Hematocrit (Bld) [Volume fraction] 37.8 % [facility] Hemoglobin (Bld) [Mass/Vol] 12.6 g/dL [facility] Interpretation and review of laboratory results Abnormal [facility] Lymphocytes (Bld) [#/Vol] 1.1 10*3/uL 1.0 - 4.3 10*3/uL [facility] Lymphocytes/100 WBC (Bld) 8.4 % Low 20.0 - 40.0 % [facility] MCH (RBC) [Entitic mass] 27.6 pg 26.0 - 34.0 pg [facility] MCHC (RBC) [Mass/Vol] 33.3 % 32.0 - 36.0 % [facility] MCV (RBC) [Entitic vol] 82.8 fL 80.0 - 98.0 fL [facility] Monocytes (Bld) [#/Vol] 0.7 10*3/uL 0.0 - 0.8 10*3/uL [facility] Monocytes/100 WBC (Bld) 5.5 % 2.0 - 10.0 % [facility] Neutrophils (Bld) [#/Vol] 10.9 10*3/uL High 1.8 - 7.0 10*3/uL [facility] Neutrophils/100 WBC (Bld) 85.2 % High 40.0 - 80.0 % [facility] Nucleated RBC/100 WBC (Bld) [Ratio] 0.1 % [facility] Platelet mean volume (Bld) [Entitic vol] 8.2 fL 7.4 - 12.4 fL [facility] Platelets (Bld) [#/Vol] 362 10*3/uL 140 - 440 10*3/uL [facility] RBC (Bld) [#/Vol] 4.56 10*6/uL [facility] WBC (Bld) [#/Vol] 12.8 10*3/uL High 3.6 - 10.7 10*3/uL [facility] CT Abdomen WO contraston 1. No acute abdominal or pelvic process to explain symptoms. Report Dictated on Electronically Signed By: Abner Palacio Electronically Signed Date/Time: 03/08/2023 2:14 PM EDT [facility] [...] evident. Osseous structures: Mild lumbar degenerative spondylosis. [facility] Abner Palacio, DO - 03/08/2023 Patient [...] Electronically Signed Date/Time: 03/08/2023 2:14 PM EDT [facility] Study observation (narrative) [facility] Abdomen WO contrastOrdere d By: Abner Palacio on 03-08-2023 [facility] Work Phone: Comprehensive metabolic 1998 panelon 03-08-2023 Albumin [Mass/Vol] 4.1 g/dL 3.5 - 5.0 g/dL [facility] ALP [Catalytic activity/Vol] 158 U/L High 38 - 126 U/L [facility] ALT [Catalytic activity/Vol] 41 U/L [facility] Anion gap [Moles/Vol] 8 mmol/L 3 - 13 mmol/L [facility] AST [Catalytic activity/Vol] 29 U/L 15 - 46 U/L [facility] Bilirubin [Mass/Vol] 0.5 mg/dL 0.2 - 1 .3 mg/dL [facility] Calcium [Mass/Vol] 8.5 mg/dL 8.4 - 10. 4 mg/dL [facility] Chloride [Moles/Vol] 102 mmol/L 98 - 10 7 mmol/L [facility] CO2 [Moles/Vol] 23 mmol/L 22 - 30 mmol/L [facility] Creatinine [Mass/Vol] 0.56 mg/dL [facility] GFR/1.73 sq M.predicted MDRD (S/P/Bld) [Vol rate/Area] - PINF [facility] Comment on above: Calculation based on the Chronic Kidney Disease Epidemiology Collaboration (CKD-EPI) equation refit without adjustment for race Glucose [Mass/Vol] 197 mg/dL High 70 - 100 mg/dL [facility] Interpretation and review of laboratory results Abnormal [facility] Potassium [Moles/Vol] 4.7 mmol/L 3.5 - 5.1 mmol/L [facility] Protein [Mass/Vol] 7.4 g/dL 6.3 - 8.2 g/dL [facility] Sodium [Moles/Vol] 133 mmol/L Low 135 - 145 mmol/L [facility] Urea nitrogen [Mass/Vol] 20 mg/dL [facility] Lipaseon 03-08-2023 Lipase [Catalytic activity/Vol] 45 U/L 23 - 300 U/L [facility] Lipase [Catalytic activity/V ol]on 03-08-2023 Interpretation and review of laboratory results Normal [facility] No Panel Informationon 03-08 [facility] POCT glucose meteron 023 Glucose [Mass/Vol] 167 mg/dL High 70 - 100 mg/dL [facility] Interpretation and review of laboratory results Abnormal [facility] Performed by: [facility], [address] [place] [id number] CLIA ID: [id number] [facility] Basophil percentageOrdered B y: Raj Caicedo on 01-13-2023 Cholesterol [Mass/Vol] 156 mg/dL <200 [facility] Comment on above: <200 mg/dL Desirable 200-240 mg/dL Borderline >240 mg/dL High Risk Triglyceride [Mass/Vol] 235 mg/dL <199 [facility] [facility] Comment on above: The drugs N-Acetylcy steine and Metamizole may falsely depress this assay.Serum Triglycerides Reference Interval Normal <150 mg/dL Borderline high 150 - 199 mg/dL High 200 - 499 mg/dL Very High > or = 500 mg/dL Serum or plasma cholesterol in HDL measurement (mass/volume)Ordered By: Raj Caicedo on 01-13-2023 Cholesterol in HDL [Mass/Vol] 37 mg/dL >40 [facility] Comment on above: The drugs N-Acetylcy steine and Metamizole may falsely depress this assay. Reference Range HDL <40 mg/dL Low HDL Cholesterol HDL >or= 60 mg/dL High HDL Cholesterol Serum or plasma cholesterol in VLDL measurement (mass/volume)Ordered By: Raj Caicedo on 01-13-2023 Cholesterol in VLDL [Mass/Vol] 47 mg/dL 5-40 [facility] Serum or plasma low density lipoprotein (LDL) cholesterol measurement (mass/volume)Ordered By: Raj Caicedo on 01-13-2023 Cholesterol in LDL [Mass/Vol] 72 mg/dL 0-130 [facility] Whole blood hemoglobin A1c/t otal hemoglobin ratio (mass fraction)Ordered By: Jared Guzman on 12-02-2022 HbA1c (Bld) [Mass fraction] 9.5 % 3.8-5.6 [facility] Comment on above: Normal < 5.7 % Predi abetic 5.7 - 6.4 % Diabetic >or= 6.5 % Please note range changes. Basophil percentageOrdered B y: Jared Guzman on 10-27-2022 Bilirubin [Mass/Vol] 0.30 mg/dL 0.20-1.00 [facility] Comment on above: For patients on eltr ombopag therapy, use of Dimension Ovid TBIL is not recommended. Chloride [Moles/Vol] 104 mmol/L 98-107 [facility] Cholesterol [Mass/Vol] 150 mg/dL <200 [facility] Comment on above: <200 mg/dL Desirable 200-240 mg/dL Borderline >240 mg/dL High Risk Glucose [Mass/Vol] 217 mg/dL 74-106 [facility] Comment on above: Glucose result great er than or equal to 200 mg/dLsuggests DIABETES MELLITUS per A.D.A. criteria. Potassium [Moles/Vol] 4.9 mmol/L 3.5-5.1 [facility] Protein [Mass/Vol] 6.5 g/dL 6.4-8.2 [facility] Sodium [Moles/Vol] 136 mmol/L 136-145 [facility] Triglyceride [Mass/Vol] 197 mg/dL <199 [facility] Comment on above: The drugs N-Acetylcy steine and Metamizole may falsely depress this assay.Serum Triglycerides Reference Interval Normal <150 mg/dL Borderline high 150 - 199 mg/dL High 200 - 499 mg/dL Very High > or = 500 mg/dL WBC (Bld) [#/Vol] 7.5 10*3/uL 4.4-11.0 [facility] Blood erythrocytes count (nu mber/volume)Ordered By: Jared Guzman on 10-27-2022 RBC (Bld) [#/Vol] 4.03 10*6/uL 4.6-6.2 [facility] Blood hemoglobin measurement (mass/volume)Ordered By: Jared Guzman on 10-27-2022 Hemoglobin (Bld) [Mass/Vol] 11.3 g/dL 13.0-16.5 [facility] Blood platelet mean volumeOr dered By: Jared Guzman on 10-27-2022 Platelet mean volume (Bld) [Entitic vol] 10.1 fL 6.2-12.0 [facility] Determination of erythrocyte mean corpuscular volume (MCV)Ordered By: Jared Guzman on 10-27-2022 MCV (RBC) [Entitic vol] 89.3 fL 80-94 [facility] Hematocrit Auto (Bld) [Volum e fraction]Ordered By: Jared Guzman on 10-27-2022 Hematocrit (Bld) [Volume fraction] 36.0 % 40-54 [facility] Laboratory - Chemistry and C hemistry - challengeOrdered By: Jared Guzman on 10-27-2022 ALP [Catalytic activity/Vol] 179 U/L 45-117 [facility] ALT [Catalytic activity/Vol] 41 U/L 16-61 [facility] CO2 [Moles/Vol] 26.0 mmol/L 21.0-32.0 [facility] Globulin (S) [Mass/Vol] 3.4 g/dL 2.2-4.2 [facility] Urea nitrogen/Creatinine [Mass ratio] 27.7 mg/mg 10-20 [facility] Laboratory - Hematology and Cell countsOrdered By: Jared Guzman on 10-27-2022 Erythrocyte distribution width (RBC) [Entitic vol] 45.3 fL 35.1-43.9 [facility] Erythrocyte distribution width (RBC) [Ratio] 13.8 % 11.6-14.6 [facility] MCH (RBC) [Entitic mass] 28.0 pg 27.0-32.0 [facility] MCHC Auto (RBC) [Mass/Vol]Or dered By: Jared Guzman on 10-27-2022 MCHC (RBC) [Mass/Vol] 31.4 g/dL 32-36 [facility] No Panel InformationOrdered By: Jared Guzman on 10-27-2022 Estimated GFR (MDRD) Amer 123 mL/min >60 [facility] Comment on above: GFR Calc Estimated GFR (MDRD) Non-Af Amer 102 mL/min >60 [facility] Comment on above: Non- GFR Calc Platelets bldOrdered By: Mike Guzman on 10-27-2022 Platelets (Bld) [#/Vol] 343 10*3/uL 150-450 [facility] Serum or plasma albumin mauricio urement (mass/volume)Ordered By: Jared Guzman on 10-27-2022 Albumin [Mass/Vol] 3.1 g/dL 3.2-5.0 [facility] Serum or plasma albumin/glob ulin mass ratioOrdered By: Jared Guzman on 10-27-2022 Albumin/Globulin [Mass ratio] 0.9 {ratio} 0.9-2.4 [facility] Serum or plasma calcium mauricio urement (mass/volume)Ordered By: Jared Guzman on 10-27-2022 Calcium [Mass/Vol] 9.0 mg/dL 8.5-10.1 [facility] Serum or plasma cholesterol in HDL measurement (mass/volume)Ordered By: Jared Guzman on 10-27-2022 Cholesterol in HDL [Mass/Vol] 34 mg/dL >40 [facility] Comment on above: The drugs N-Acetylcy steine and Metamizole may falsely depress this assay. Reference Range HDL <40 mg/dL Low HDL Cholesterol HDL >or= 60 mg/dL High HDL Cholesterol Serum or plasma cholesterol in VLDL measurement (mass/volume)Ordered By: Jared Guzman on 10-27-2022 Cholesterol in VLDL [Mass/Vol] 39 mg/dL 5-40 [facility] Serum or plasma creatinine m easurement (mass/volume)Ordered By: Jared Guzman on 10-27-2022 Creatinine [Mass/Vol] 0.83 mg/dL 0.70-1.30 [facility] Comment on above: The validity of the calculated GFR & GFRAA in patients over 70 years has not been determined. Clinical correlation is essential. Serum or plasma low density lipoprotein (LDL) cholesterol measurement (mass/volume)Ordered By: Jared Guzman on 10-27-2022 Cholesterol in LDL [Mass/Vol] 77 mg/dL 0-130 [facility] Serum or plasma urea nitroge n measurement (mass/volume)Ordered By: Jared Guzman on 10-27-2022 Urea nitrogen [Mass/Vol] 23 mg/dL 7-18 [facility] Thin prep Papanicolaou smear with manual screeningOrdered By: Jared Guzman on 10-27-2022 Thin prep Papanicolaou smear with manual screening 16 U/L 15-37 [facility] Thin prep Papanicolaou smear with manual screening 6 5-15 [facility] Basophil percentageon 2021 Chloride [Moles/Vol] 105 mmol/L 98-107 [facility] Work Phone: Glucose [Mass/Vol] 188 mg/dL 74-106 [facility] Work Phone: Comment on above: Fasting Glucose resu lt greater than or equal to 126 mg/dL suggests DIABETES MELLITUS per A.D.A. criteria. Potassium [Moles/Vol] 5.1 mmol/L 3.5-5.1 [facility] Work Phone: Sodium [Moles/Vol] 134 mmol/L 136-145 [facility] Work Phone: WBC (Bld) [#/Vol] 9.0 10*3/uL 4.4-11.0 [facility] Work Phone: Blood erythrocytes count (nu mber/volume)on 06-24-2022 RBC (Bld) [#/Vol] 4.12 10*6/uL 4.6-6.2 [facility]: Blood hemoglobin measurement (mass/volume)on 06-24-2022 Hemoglobin (Bld) [Mass/Vol] 11.5 g/dL 13.0-16.5 [facility] Work Phone: Blood platelet mean volumeon 06-24-2022 Platelet mean volume (Bld) [Entitic vol] 10.7 fL 6.2-12.0 [facility] Work Phone: Determination of erythrocyte mean corpuscular volume (MCV)on 06-24-2022 MCV (RBC) [Entitic vol] 87.9 fL 80-94 [facility] Work Phone: Hematocrit Auto (Bld) [Volum e fraction]on 06-24-2022 Hematocrit (Bld) [Volume fraction] 36.2 % 40-54 [facility] Work Phone: Laboratory - Chemistry and C hemistry - challengeon 06-24-2022 CO2 [Moles/Vol] 22.0 mmol/L 21.0-32.0 [facility] Work Phone: Urea nitrogen/Creatinine [Mass ratio] 42.1 mg/mg 10-20 [facility] Work Phone: Laboratory - Hematology and Cell countson 06-24-2022 Erythrocyte distribution width (RBC) [Entitic vol] 45.2 fL 35.1-43.9 [facility] Work Phone: Erythrocyte distribution width (RBC) [Ratio] 14.1 % 11.6-14.6 [facility] Work Phone: MCH (RBC) [Entitic mass] 27.9 pg 27.0-32.0 [facility] Work Phone: MCHC Auto (RBC) [Mass/Vol]on 06-24-2022 MCHC (RBC) [Mass/Vol] 31.8 g/dL 32-36 [facility] Work Phone: No Panel Informationon 06-24 Estimated GFR (MDRD) Amer 119 mL/min >60 [facility] Work Phone: Comment on above: GFR Calc Estimated GFR (MDRD) Non-Af Amer 99 mL/min >60 [facility] Work Phone: Comment on above: Non- GFR Calc Platelets bldon 06-24-2022 Platelets (Bld) [#/Vol] 396 10*3/uL 150-450 [facility] Work Phone: Serum or plasma calcium mauricio urement (mass/volume)on 06-24-2022 Calcium [Mass/Vol] 9.1 mg/dL 8.5-10.1 [facility] Work Phone: Serum or plasma creatinine m easurement (mass/volume)on 06-24-2022 Creatinine [Mass/Vol] 0.86 mg/dL 0.70-1.30 [facility] Work Phone: Comment on above: The validity of the calculated GFR & GFRAA in patients over 70 years has not been determined. Clinical correlation is essential. Serum or plasma urea nitroge n measurement (mass/volume)on 06-24-2022 Urea nitrogen [Mass/Vol] 36 mg/dL 7-18 [facility] Work Phone: Thin prep Papanicolaou smear with manual screeningon 06-24-2022 Thin prep Papanicolaou smear with manual screening 7 5-15 [facility] Work Phone: Basophil percentageon 2021 Bilirubin [Mass/Vol] 0.20 mg/dL 0.20-1.00 [facility] Work Phone: Comment on above: For patients on eltr ombopag therapy, use of Dimension Ovid TBIL is not recommended. Chloride [Moles/Vol] 104 mmol/L 98-107 [facility] Work Phone: Glucose [Mass/Vol] 299 mg/dL 74-106 [facility] Work Phone: Comment on above: Glucose result great er than or equal to 200 mg/dLsuggests DIABETES MELLITUS per A.D.A. criteria. Potassium [Moles/Vol] 5.0 mmol/L 3.5-5.1 [facility] Work Phone: Protein [Mass/Vol] 6.7 g/dL 6.4-8.2 [facility] Work Phone: Sodium [Moles/Vol] 135 mmol/L 136-145 [facility] Work Phone: WBC (Bld) [#/Vol] 7.9 10*3/uL 4.4-11.0 [facility] Work Phone: Blood erythrocytes count (nu mber/volume)on 05-25-2022 RBC (Bld) [#/Vol] 3.86 10*6/uL 4.6-6.2 [facility] Work Phone: Blood hemoglobin measurement (mass/volume)on 05-25-2022 Hemoglobin (Bld) [Mass/Vol] 10.5 g/dL 13.0-16.5 [facility] Work Phone: Blood platelet mean volumeon 05-25-2022 Platelet mean volume (Bld) [Entitic vol] 10.5 fL 6.2-12.0 [facility] Work Phone: Determination of erythrocyte mean corpuscular volume (MCV)on 05-25-2022 MCV (RBC) [Entitic vol] 88.1 fL 80-94 [facility] Work Phone: Hematocrit Auto (Bld) [Volum e fraction]on 05-25-2022 Hematocrit (Bld) [Volume fraction] 34.0 % 40-54 [facility] Work Phone: Laboratory - Chemistry and C hemistry - challengeon 05-25-2022 ALP [Catalytic activity/Vol] 187 U/L 45-117 [facility] Work Phone: ALT [Catalytic activity/Vol] 37 U/L 16-61 [facility] Work Phone: [phone] CO2 [Moles/Vol] 25.0 mmol/L 21.0-32.0 [facility] Work Phone: Globulin (S) [Mass/Vol] 3.8 g/dL 2.2-4.2 [facility] Work Phone: Urea nitrogen/Creatinine [Mass ratio] 27.5 mg/mg 10-20 [facility] Work Phone: Laboratory - Hematology and Cell countson 05-25-2022 Erythrocyte distribution width (RBC) [Entitic vol] 45.1 fL 35.1-43.9 [facility] Work Phone: Erythrocyte distribution width (RBC) [Ratio] 14.1 % 11.6-14.6 [facility] Work Phone: MCH (RBC) [Entitic mass] 27.2 pg 27.0-32.0 [facility] Work Phone: MCHC Auto (RBC) [Mass/Vol]on 05-25-2022 MCHC (RBC) [Mass/Vol] 30.9 g/dL 32-36 [facility] No Panel Informationon 05-25 Estimated GFR (MDRD) Amer 123 mL/min >60 [facility] Work Phone: Comment on above: GFR Calc Estimated GFR (MDRD) Non-Af Amer 101 mL/min >60 [facility] Work Phone: Comment on above: Non- GFR Calc Platelets bldon 05-25-2022 Platelets (Bld) [#/Vol] 320 10*3/uL 150-450 [facility] Work Phone: Serum or plasma albumin mauricio urement (mass/volume)on 05-25-2022 Albumin [Mass/Vol] 2.9 g/dL 3.2-5.0 [facility] Work Phone: Serum or plasma albumin/glob ulin mass ratioon 05-25-2022 Albumin/Globulin [Mass ratio] 0.8 {ratio} 0.9-2.4 [facility] Work Phone: Serum or plasma calcium mauricio urement (mass/volume)on 05-25-2022 Calcium [Mass/Vol] 9.0 mg/dL 8.5-10.1 [facility] Work Phone: Serum or plasma creatinine m easurement (mass/volume)on 05-25-2022 Creatinine [Mass/Vol] 0.84 mg/dL 0.70-1.30 [facility] Work Phone: Comment on above: The validity of the calculated GFR & GFRAA in patients over 70 years has not been determined. Clinical correlation is essential. Serum or plasma urea nitroge n measurement (mass/volume)on 05-25-2022 Urea nitrogen [Mass/Vol] 23 mg/dL 7-18 [facility] Work Phone: Thin prep Papanicolaou smear with manual screeningon 05-25-2022 Thin prep Papanicolaou smear with manual screening 14 U/L 15-37 [facility] Work Phone: Thin prep Papanicolaou smear with manual screening 6 5-15 [facility] Work Phone: Basophil percentageon 2021 Cholesterol [Mass/Vol] 135 mg/dL <200 [facility] Work Phone: Comment on above: <200 mg/dL Desirable 200-240 mg/dL Borderline >240 mg/dL High Risk Triglyceride [Mass/Vol] 183 mg/dL <199 [facility] Work Phone: Comment on above: The drugs N-Acetylcy steine and Metamizole may falsely depress this assay.Serum Triglycerides Reference Interval Normal <150 mg/dL Borderline high 150 - 199 mg/dL High 200 - 499 mg/dL Very High > or = 500 mg/dL Serum or plasma cholesterol in HDL measurement (mass/volume)on 04-27-2022 Cholesterol in HDL [Mass/Vol] 35 mg/dL >40 [facility] Work Phone: Comment on above: The drugs N-Acetylcy steine and Metamizole may falsely depress this assay. Reference Range HDL <40 mg/dL Low HDL Cholesterol HDL >or= 60 mg/dL High HDL Cholesterol Serum or plasma cholesterol in VLDL measurement (mass/volume)on 04-27-2022 Cholesterol in VLDL [Mass/Vol] 37 mg/dL 5-40 [facility] Work Phone: Serum or plasma low density lipoprotein (LDL) cholesterol measurement (mass/volume)on 04-27-2022 Cholesterol in LDL [Mass/Vol] 63 mg/dL 0-130 [facility] Work Phone: Basophil percentageon 2021 Bilirubin [Mass/Vol] 0.30 mg/dL 0.20-1.00 [facility] Work Phone: Comment on above: For patients on eltr ombopag therapy, use of Dimension Ovid TBIL is not recommended. Chloride [Moles/Vol] 105 mmol/L 98-107 [facility] Work Phone: Glucose [Mass/Vol] 260 mg/dL 74-106 [facility] Work Phone: Comment on above: Glucose result great er than or equal to 200 mg/dLsuggests DIABETES MELLITUS per A.D.A. criteria. Potassium [Moles/Vol] 4.7 mmol/L 3.5-5.1 [facility] Work Phone: Protein [Mass/Vol] 6.8 g/dL 6.4-8.2 [facility] Work Phone: Sodium [Moles/Vol] 134 mmol/L 136-145 [facility] Work Phone: WBC (Bld) [#/Vol] 8.9 10*3/uL 4.4-11.0 [facility]: Blood erythrocytes count (nu mber/volume)on 04-13-2022 RBC (Bld) [#/Vol] 3.91 10*6/uL 4.6-6.2 [facility] Work Phone: Blood hemoglobin measurement (mass/volume)on 04-13-2022 Hemoglobin (Bld) [Mass/Vol] 11.0 g/dL 13.0-16.5 [facility] Work Phone: Blood platelet mean volumeon 04-13-2022 Platelet mean volume (Bld) [Entitic vol] 10.3 fL 6.2-12.0 [facility] Work Phone: Determination of erythrocyte mean corpuscular volume (MCV)on 04-13-2022 MCV (RBC) [Entitic vol] 87.7 fL 80-94 [facility] Work Phone: Hematocrit Auto (Bld) [Volum e fraction]on 04-13-2022 Hematocrit (Bld) [Volume fraction] 34.3 % 40-54 [facility] Work Phone: Laboratory - Chemistry and C hemistry - challengeon 04-13-2022 ALP [Catalytic activity/Vol] 189 U/L 45-117 [facility] Work Phone: ALT [Catalytic activity/Vol] 43 U/L 16-61 [facility] Work Phone: CO2 [Moles/Vol] 23.0 mmol/L 21.0-32.0 [facility] Work Phone: Globulin (S) [Mass/Vol] 3.6 g/dL 2.2-4.2 [facility] Work Phone: Urea nitrogen/Creatinine [Mass ratio] 34.9 mg/mg 10-20 [facility] Work Phone: Laboratory - Hematology and Cell countson 04-13-2022 Erythrocyte distribution width (RBC) [Entitic vol] 42.3 fL 35.1-43.9 [facility] Work Phone: Erythrocyte distribution width (RBC) [Ratio] 13.2 % 11.6-14.6 [facility] Work Phone: MCH (RBC) [Entitic mass] 28.1 pg 27.0-32.0 [facility] Work Phone: MCHC Auto (RBC) [Mass/Vol]on 04-13-2022 MCHC (RBC) [Mass/Vol] 32.1 g/dL 32-36 [facility] Work Phone: No Panel Informationon 04-13 Estimated GFR (MDRD) Amer 134 mL/min >60 [facility] Work Phone: Comment on above: GFR Calc Estimated GFR (MDRD) Non-Af Amer 111 mL/min >60 [facility] Work Phone: Comment on above: Non- GFR Calc Platelets bldon 04-13-2022 Platelets (Bld) [#/Vol] 310 10*3/uL 150-450 [facility] Work Phone: Serum or plasma albumin mauricio urement (mass/volume)on 04-13-2022 Albumin [Mass/Vol] 3.2 g/dL 3.2-5.0 [facility] Work Phone: Serum or plasma albumin/glob ulin mass ratioon 04-13-2022 Albumin/Globulin [Mass ratio] 0.9 {ratio} 0.9-2.4 [facility] Work Phone: Serum or plasma calcium mauricio urement (mass/volume)on 04-13-2022 Calcium [Mass/Vol] 9.1 mg/dL 8.5-10.1 [facility] Work Phone: Serum or plasma creatinine m easurement (mass/volume)on 04-13-2022 Creatinine [Mass/Vol] 0.77 mg/dL 0.70-1.30 [facility] Work Phone: Comment on above: The validity of the calculated GFR & GFRAA in patients over 70 years has not been determined. Clinical correlation is essential. Serum or plasma urea nitroge n measurement (mass/volume)on 04-13-2022 Urea nitrogen [Mass/Vol] 27 mg/dL 7-18 [facility] Work Phone: Thin prep Papanicolaou smear with manual screeningon 04-13-2022 Thin prep Papanicolaou smear with manual screening 16 U/L 15-37 [facility] Work Phone: Thin prep Papanicolaou smear with manual screening 6 5-15 [facility] Work Phone: Basophil percentageon 2021 Chloride [Moles/Vol] 105 mmol/L 98-107 [facility] Work Phone: Glucose [Mass/Vol] 284 mg/dL 74-106 [facility] Work Phone: Comment on above: Glucose result great er than or equal to 200 mg/dLsuggests DIABETES MELLITUS per A.D.A. criteria. Potassium [Moles/Vol] 4.6 mmol/L 3.5-5.1 [facility] Work Phone: Sodium [Moles/Vol] 134 mmol/L 136-145 [facility] Work Phone: WBC (Bld) [#/Vol] 7.7 10*3/uL 4.4-11.0 [facility] Work Phone: Blood erythrocytes count (nu mber/volume)on 03-02-2022 RBC (Bld) [#/Vol] 3.83 10*6/uL 4.6-6.2 [facility] Work Phone: Blood hemoglobin measurement (mass/volume)on 03-02-2022 Hemoglobin (Bld) [Mass/Vol] 10.7 g/dL 13.0-16.5 [facility] Work Phone: Blood platelet mean volumeon 03-02-2022 Platelet mean volume (Bld) [Entitic vol] 10.6 fL 6.2-12.0 [facility] Work Phone: Determination of erythrocyte mean corpuscular volume (MCV)on 03-02-2022 MCV (RBC) [Entitic vol] 90.1 fL 80-94 [facility] Work Phone: Hematocrit Auto (Bld) [Volum e fraction]on 03-02-2022 Hematocrit (Bld) [Volume fraction] 34.5 % 40-54 [facility] Work Phone: Laboratory - Chemistry and C hemistry - challengeon 03-02-2022 CO2 [Moles/Vol] 22.0 mmol/L 21.0-32.0 [facility] Work Phone: Urea nitrogen/Creatinine [Mass ratio] 31.8 mg/mg 10-20 [facility] Work Phone: Laboratory - Hematology and Cell countson 03-02-2022 Erythrocyte distribution width (RBC) [Entitic vol] 44.5 fL 35.1-43.9 [facility] Work Phone: Erythrocyte distribution width (RBC) [Ratio] 13.5 % 11.6-14.6 [facility] Work Phone: MCH (RBC) [Entitic mass] 27.9 pg 27.0-32.0 [facility] Work Phone: MCHC Auto (RBC) [Mass/Vol]on 03-02-2022 MCHC (RBC) [Mass/Vol] 31.0 g/dL 32-36 [facility] Work Phone: No Panel Informationon 03-02 Estimated GFR (MDRD) Amer 132 mL/min >60 [facility] Work Phone: Comment on above: GFR Calc Estimated GFR (MDRD) Non-Af Amer 109 mL/min >60 [facility] Work Phone: Comment on above: Non- GFR Calc Platelets bldon 03-02-2022 Platelets (Bld) [#/Vol] 310 10*3/uL 150-450 [facility] Work Phone: Serum or plasma calcium mauricio urement (mass/volume)on 03-02-2022 Calcium [Mass/Vol] 9.0 mg/dL 8.5-10.1 [facility] Work Phone: Serum or plasma creatinine m easurement (mass/volume)on 03-02-2022 Creatinine [Mass/Vol] 0.79 mg/dL 0.70-1.30 [facility] Work Phone: Comment on above: The validity of the calculated GFR & GFRAA in patients over 70 years has not been determined. Clinical correlation is essential. Serum or plasma urea nitroge n measurement (mass/volume)on 03-02-2022 Urea nitrogen [Mass/Vol] 25 mg/dL 7-18 [facility] Work Phone: Thin prep Papanicolaou smear with manual screeningon 03-02-2022 Thin prep Papanicolaou smear with manual screening 7 5-15 [facility] Work Phone: Basophil percentageon 2021 Bilirubin [Mass/Vol] 0.30 mg/dL 0.20-1.00 [facility] Work Phone: Comment on above: For patients on eltr ombopag therapy, use of Dimension Ovid TBIL is not recommended. Chloride [Moles/Vol] 103 mmol/L 98-107 [facility] Work Phone: Glucose [Mass/Vol] 334 mg/dL 74-106 [facility] Work Phone: Comment on above: Glucose result great er than or equal to 200 mg/dLsuggests DIABETES MELLITUS per A.D.A. criteria. Potassium [Moles/Vol] 5.0 mmol/L 3.5-5.1 [facility] Work Phone: Protein [Mass/Vol] 6.8 g/dL 6.4-8.2 [facility] Work Phone: Sodium [Moles/Vol] 135 mmol/L 136-145 [facility] Work Phone: WBC (Bld) [#/Vol] 7.0 10*3/uL 4.4-11.0 [facility] Work Phone: Blood erythrocytes count (nu mber/volume)on 01-29-2022 RBC (Bld) [#/Vol] 3.91 10*6/uL 4.6-6.2 [facility] Work Phone: Blood hemoglobin measurement (mass/volume)on 01-29-2022 Hemoglobin (Bld) [Mass/Vol] 10.9 g/dL 13.0-16.5 [facility] Work Phone: Blood platelet mean volumeon 01-29-2022 Platelet mean volume (Bld) [Entitic vol] 10.9 fL 6.2-12.0 [facility] Work Phone: Determination of erythrocyte mean corpuscular volume (MCV)on 01-29-2022 MCV (RBC) [Entitic vol] 89.8 fL 80-94 [facility] Work Phone: Hematocrit Auto (Bld) [Volum e fraction]on 01-29-2022 Hematocrit (Bld) [Volume fraction] 35.1 % 40-54 [facility] Work Phone: Laboratory - Chemistry and C hemistry - challengeon 01-29-2022 ALP [Catalytic activity/Vol] 194 U/L 45-117 [facility] Work Phone: ALT [Catalytic activity/Vol] 38 U/L 16-61 [facility] Work Phone: CO2 [Moles/Vol] 27.0 mmol/L 21.0-32.0 [facility] Work Phone: Globulin (S) [Mass/Vol] 3.5 g/dL 2.2-4.2 [facility] Work Phone: Urea nitrogen/Creatinine [Mass ratio] 20.6 mg/mg 10-20 [facility] Work Phone: Laboratory - Hematology and Cell countson 01-29-2022 Erythrocyte distribution width (RBC) [Entitic vol] 43.8 fL 35.1-43.9 [facility] Work Phone: Erythrocyte distribution width (RBC) [Ratio] 13.3 % 11.6-14.6 [facility] Work Phone: MCH (RBC) [Entitic mass] 27.9 pg 27.0-32.0 [facility] Work Phone: MCHC Auto (RBC) [Mass/Vol]on 01-29-2022 MCHC (RBC) [Mass/Vol] 31.1 g/dL 32-36 [facility] Work Phone: No Panel Informationon 01-29 Estimated GFR (MDRD) Amer 117 mL/min >60 [facility] Work Phone: Comment on above: GFR Calc Estimated GFR (MDRD) Non-Af Amer 97 mL/min >60 [facility] Work Phone: Comment on above: Non- GFR Calc Platelets bldon 01-29-2022 Platelets (Bld) [#/Vol] 306 10*3/uL 150-450 [facility] Work Phone: Serum or plasma albumin mauricio urement (mass/volume)on 01-29-2022 Albumin [Mass/Vol] 3.3 g/dL 3.2-5.0 [facility] Work Phone: Serum or plasma albumin/glob ulin mass ratioon 01-29-2022 Albumin/Globulin [Mass ratio] 0.9 {ratio} 0.9-2.4 [facility] Work Phone: Serum or plasma calcium mauricio urement (mass/volume)on 01-29-2022 Calcium [Mass/Vol] 8.8 mg/dL 8.5-10.1 [facility] Work Phone: Serum or plasma creatinine m easurement (mass/volume)on 01-29-2022 Creatinine [Mass/Vol] 0.87 mg/dL 0.70-1.30 [facility] Work Phone: Comment on above: The validity of the calculated GFR & GFRAA in patients over 70 years has not been determined. Clinical correlation is essential. Serum or plasma urea nitroge n measurement (mass/volume)on 01-29-2022 Urea nitrogen [Mass/Vol] 18 mg/dL 7-18 [facility] Work Phone: Thin prep Papanicolaou smear with manual screeningon 01-29-2022 Thin prep Papanicolaou smear with manual screening 11 U/L 15-37 [facility] Work Phone: Thin prep Papanicolaou smear with manual screening 5 5-15 [facility] Work Phone: Whole blood hemoglobin A1c/t otal hemoglobin ratio (mass fraction)on 01-29-2022 HbA1c (Bld) [Mass fraction] 8.8 % 3.8-5.6 [facility] Work Phone: Comment on above: Normal < 5.7 % Predi abetic 5.7 - 6.4 % Diabetic >or= 6.5 % Please note range changes. Basophil percentageon 2021 Cholesterol [Mass/Vol] 169 mg/dL <200 [facility] Work Phone: Comment on above: <200 mg/dL Desirable 200-240 mg/dL Borderline >240 mg/dL High Risk Triglyceride [Mass/Vol] 177 mg/dL <199 [facility] Work Phone: Comment on above: The drugs N-Acetylcy steine and Metamizole may falsely depress this assay.Serum Triglycerides Reference Interval Normal <150 mg/dL Borderline high 150 - 199 mg/dL High 200 - 499 mg/dL Very High > or = 500 mg/dL Serum or plasma cholesterol in HDL measurement (mass/volume)on 01-19-2022 Cholesterol in HDL [Mass/Vol] 35 mg/dL >40 [facility] Work Phone: Comment on above: The drugs N-Acetylcy steine and Metamizole may falsely depress this assay. Reference Range HDL <40 mg/dL Low HDL Cholesterol HDL >or= 60 mg/dL High HDL Cholesterol Serum or plasma cholesterol in VLDL measurement (mass/volume)on 01-19-2022 Cholesterol in VLDL [Mass/Vol] 35 mg/dL 5-40 [facility] Work Phone: Serum or plasma low density lipoprotein (LDL) cholesterol measurement (mass/volume)on 01-19-2022 Cholesterol in LDL [Mass/Vol] 99 mg/dL 0-130 [facility] Work Phone: Basic Metabolic Panelon 12-09 Calcium [Mass/Vol] 9.4 mg/dL Normal 8.4-10.4 [facility] Comment on above: Performed By: #### B MP3, HGHCT #### [facility] [address] [place] [address] Glucose [Mass/Vol] 119 mg/dL High 70-100 [facility] Comment on above: Performed By: #### B MP3, HGHCT #### [facility] [address] [place] [address] Urea nitrogen [Mass/Vol] 19 mg/dL Normal 9-20 [facility] Comment on above: Performed By: #### B MP3, HGHCT #### [facility] [address] [place] [address] Anion gap [Moles/Vol] 8 mmol/L Normal 3-13 [facility] Comment on above: Performed By: #### B MP3, HGHCT #### [facility] [address] [place] [address] CO2 [Moles/Vol] 25 mmol/L Normal 22-30 [facility] Comment on above: Performed By: #### B MP3, HGHCT #### [facility] [address] [place] [address] Creatinine [Mass/Vol] 0.73 mg/dL Normal 0.52-1.25 [facility] Comment on above: Performed By: #### B MP3, HGHCT #### [facility] [address] [place] [address] eGFR OTHER > 90.0 Normal >60 [facility] Comment on above: Result Comment: KDIG [...] Performed By: #### B MP3, HGHCT #### [facility] [address] [place] [address] GFR/1.73 sq M.predicted among blacks MDRD (S/P/Bld) [Vol rate/Area] mL/min/{1.73_m2} Normal >60 [facility] Comment on above: Performed By: #### B MP3, HGHCT #### [facility] [address] [place] [address] Potassium [Moles/Vol] 4.6 mmol/L Normal 3.5-5.1 [facility] Comment on above: Performed By: #### B MP3, HGHCT #### [facility] [address] [place] [address] Chloride [Moles/Vol] 105 mmol/L Normal 98-107 [facility] Comment on above: Performed By: #### B MP3, HGHCT #### [facility] [address] [place] [address] Sodium [Moles/Vol] 137 mmol/L Normal 135-145 [facility] Comment on above: Performed By: #### B MP3, HGHCT #### [facility] [address] [place] [address] Glucose,Bedsideon 12-23-2021 Glucose [Mass/Vol] 122 mg/dL High 70-100 [facility] Comment on above: Result Comment: Test performed by glucose meter. Results may be 10%-15% lower than serum/plasma values. (CLIA ID [id number]) Performed By: #### B GLU #### [facility] [address] [place] [address] Glucose [Mass/Vol] 107 mg/dL High 70-100 [facility] Comment on above: Result Comment: Test performed by glucose meter. Results may be 10%-15% lower than serum/plasma values. (CLIA ID [id number]) Performed By: #### B GLU #### [facility] [address] [place] [address] Hemoglobin AND Hematocriton 12-23-2021 Hematocrit (Bld) [Volume fraction] 35.7 % Normal 35.0-47.0 [facility] Comment on above: Performed By: #### B MP3, HGHCT #### [facility] [address] [place] [address] Hemoglobin (Bld) [Mass/Vol] 11.8 g/dL Normal 11.7-16.0 [facility] Comment on above: Performed By: #### B MP3, HGHCT #### [facility] [address] [place] [address] Op Noteon 12-23-2021 Op Note Operative Note Patient: Will Jacinto Date of : 1965 Date of Procedure: 12/23/21 Pre-Op Diagnosis: endometrial hyperplasia Post-Op Diagnosis: Same D&C/hysteroscopy Forcer Maker: * Surgery not found * Anesthesia: general [...] curetted and specimen sent. Procedure terminated. Normal [facility] Surgical Pathologyon 022 Surgical Pathology [id number] [facility] PATHOLOGY AND LABORATORY MEDICINE [address] [place] [address] Fax - FINAL SURGICAL PATHOLOGY REPORT NAME: WILL JACINTO N [id number] : 1965 56 Y F [facility] [id number] LOCATION: [place] [address] PROCEDURE 12/23/2021 DATE: SURGEON: MICHAEL CUNNINGHAM M.D. [...] 0.4 cm. All submitted in one cassette. [facility] Disclaimer: The following statement applies to all immunohistochemistry, in situ hybridization, molecular studies, and immunofluorescence testing. The use of one or more reagents in the above tests is regulated as an analyte specific reagent (ASR). These tests were developed and their performance characteristics determined by the clinical laboratories of [facility]. They have not been cleared by [...] negativity on decalcified specimens. Case reviewed at [place] [address] [place] [address]. DEPARTMENT OF PATHOLOGY AND LABORATORY MEDICINE [place], [place] [address] [email or web address] Normal [facility] Comprehensive Metabolic Pane gigi 12-08-2020 Albumin [Mass/Vol] 4.0 g/dL 3.5 - 5 g/dL [place] ALP [Catalytic activity/Vol] 121 U/L 38 - 126 U/L [place] ALT [Catalytic activity/Vol] 47 U/L High 0 - 34 U/L [place] Comment on above: The ALT test is perf ormed by an updated assay method. Please note that the reference intervals have been changed and are now sex specific. Anion gap [Moles/Vol] 6 mmol/L [place], [place] AST [Catalytic activity/Vol] 25 U/L 15 - 46 U/L [place] Bilirubin Ql (U) 0.6 mg/dL 0.2 - 1.3 mg/dL [place] Calcium [Mass/Vol] 9.7 mg/dL 8.4 - 10. 4 mg/dL [place] Chloride [Moles/Vol] 95 mmol/L Low 98 - 10 7 mmol/L [place] CO2 [Moles/Vol] 30 mmol/L 22 - 30 mmol/L [place] Creatinine [Mass/Vol] 0.64 mg/dL 0.52 - 1.25 mg/dL [place] EGFR IF NonAfrican [place] Verdean >90.0 >60 mL/min [place] Comment on above: KDIGO guidelines pro [...] MDRD (S/P/Bld) [Vol rate/Area] mL/min/{1.73_m2} >60 mL/min [place] Glucose [Mass/Vol] 248 mg/dL High 70 - 100 mg/dL [place] Interpretation and review of laboratory results Abnormal [place] Potassium [Moles/Vol] 4.7 mmol/L 3.5 - 5.1 mmol/L [place] Protein [Mass/Vol] 6.8 g/dL 6.3 - 8.2 g/dL [place] Sodium [Moles/Vol] 132 mmol/L Low 135 - 145 mmol/L [place] Urea nitrogen [Mass/Vol] 12 mg/dL 7 - 20 mg/dL [place] Hemogram (CBC) w/Auto Diffon 12-08-2020 Absolute Baso # 0.1 10*3/uL 0 - 0.2 10*3/uL [place] Absolute Neut # 6.1 10*3/uL 1.8 - 7 10*3/uL [place] Basophils/100 WBC (Bld) 0.8 % 0 - 2 % [place], [place] Eosinophils (Bld) [#/Vol] 0.1 10*3/uL 0 - 0.5 10*3/uL [place] Eosinophils/100 WBC (Bld) 1.0 % 1 - 6 % [place] Erythrocyte distribution width (RBC) [Ratio] 15.7 % High 11.5 - 14.5 % [place] Granulocytes/100 WBC (Bld) 73.2 % 40 - 80 % [place] Hematocrit (Bld) [Volume fraction] 37.0 % 35 - 47 % [place] Hemoglobin (Bld) [Mass/Vol] 12.3 g/dL 11.7 - 16 g/dL [place] Interpretation and review of laboratory results Abnormal [place] Lymphocytes (Bld) [#/Vol] 1.5 10*3/uL 1 - 4.3 10*3/uL [place], [place] Lymphocytes/100 WBC (Bld) 18.0 % Low 20 - 40 % [place] MCH (RBC) [Entitic mass] 28.6 pg 26 - 34 pg [place] MCHC (RBC) [Mass/Vol] 33.3 % 32 - 36 % [place] MCV (RBC) [Entitic vol] 85.8 fL 79 - 98 fL [place], [place] Monocytes (Bld) [#/Vol] 0.6 10*3/uL 0 - 0.8 10*3/uL [place], [place] Monocytes/100 WBC (Bld) 7.0 % 2 - 10 % M [place] Platelet mean volume (Bld) [Entitic vol] 7.9 fL 7.4 - 10.4 fL [place], [place] Platelets (Bld) [#/Vol] 382 10*3/uL 140 - 440 10*3/uL [place] RBC (Bld) [#/Vol] 4.32 10*6/uL 3.8 - 5.2 10*6/uL [place] WBC (Bld) [#/Vol] 8.4 10*3/uL 3.6 - 10.7 10*3/uL [place] Test Performed by [facility], [address] [place] [address] Lipaseon 12-08-2020 Lipase [Catalytic activity/Vol] 45 U/L 23 - 300 U/L [place], [place] Otheron 12-08-2020 Test Performed by [facility], [address] [place], [address] Troponinon 12-08-2020 Troponin I.cardiac [Mass/Vol] ng/mL 0 - 0.034 ng/mL [place], [place] Comment on above: . Test Performed by [facility], [address] [place] [address] US ABDOMEN LIMITED Specify o rgan? GALLBLADDERon 12-08-2020 [facility] Incoming Radiology Results From [facility] - 12/08/2020 4:26 PM EST Patient Name: WILL JACINTO Ultrasound ACCESSION EXAM DATE/TIME PROCEDURE ORDERING PROVIDER [id number] 12/08/2020 16:22 EST US Abdomen Limited [id number] SHEIKH CPT code 21517 Reason For Exam (US Abdomen Limited) abd [...] MALAY Transcribed Date and Time: 12/08/2020 4:26 [place], [place] Patient Name: WILL ALVARADO Ultrasound ACCESSION EXAM DATE/TIME PROCEDURE ORDERING PROVIDER [id number] 12/08/2020 16:22 EST US Abdomen Limited [id number] DURHAM CPT code 76496 Reason For Exam (US Abdomen Limited) abd [...] MALAY Transcribed Date and Time: 12/08/2020 4:26 [place], [place] Urinalysison 12-08-2020 Appearance (U) Turbid Abnormal Clear NA [place] Comment on above: . Bacteria, UA Moderate Abnormal Negative /[HPF] [place] Comment on above: . Bilirubin Urine Negative Negative mg/dL [place] Comment on above: . Color (U) Yellow Lt. Yellow NA [place] Comment on above: . Glucose, Ur 500 mg/dL Abnormal Normal (<70) [place] Comment on above: . Hyaline Casts, UA 3-5 Abnormal Negative /[LPF] [place] Comment on above: . Interpretation and review of laboratory results Abnormal [place] Ketones Ql (U) Negative Negative mg/dL [place] Comment on above: . LEUKOCYTES, UA 250 Abnormal Negative Kat/uL [place] Comment on above: . Mucous Threads Few Negative /[LPF] [place] Comment on above: . Nitrite, Urine Negative Negative NA [place] Comment on above: . Occult Blood,Urine 1.0 mg/dL Abnormal Negative [place] Comment on above: . pH (U) 7.0 [pH] [place] Comment on above: . Protein (U) [Mass/Vol] 50 mg/dL Abnormal Negative Me [place], [place] Comment on above: . RBC (U) [#/Vol] /uL Abnormal 0 - 2 /[HPF] [place], [place] Comment on above: . Specific [place], Urine 1.022 M [place] Comment on above: . Squam Epithel, UA 3-5 3 - 5 /[HPF] [place] Comment on above: . Urobilinogen, Urine 4 mg/dL Abnormal Normal (0-1) [place] Comment on above: . WBC, UA 51-100 Abnormal 0 - 5 /[HPF] [place], [place] Comment on above: . Test Performed by [facility], [address] [place], [place] [address] Urine microscopic confirmed via light microscopy. [place], [place] XR CHEST PORTABLEon 12-08-19 Patient Name: WILL ALVARADO Diagnostic Radiology ACCESSION EXAM DATE/TIME PROCEDURE ORDERING PROVIDER [id number] 12/08/2020 16:00 EST CR Chest Portable [id number] ART BROOKS CPT code 66431 Reason For Exam (CR Chest Portable) chest [...] RACHEL Transcribed Date and Time: 12/08/2020 4:22 [facility], [place] Nati Jones Incoming Radiology Results From [facility] - 12/08/2020 4:22 PM EST Patient Name: WILL JACINTO Diagnostic Radiology ACCESSION EXAM DATE/TIME PROCEDURE ORDERING PROVIDER [id number] 12/08/2020 16:00 EST CR Chest Portable [id number] SHEIKH CPT code 96955 Reason For Exam (CR Chest Portable) chest [...] RACHEL Transcribed Date and Time: 12/08/2020 4:22 [facility], [place] CR Abdomen APon 11-28-2020 CR Abdomen AP Patient Name: WILL ALVARADO Diagnostic Radiology ACCESSION EXAM DATE/TIME PROCEDURE ORDERING PROVIDER [id number] 11/28/2020 09:00 EST CR Abdomen AP MD JD, CHAU CPT code 67803 Reason For Exam (CR Abdomen AP) ileus [...] Transcribed Date and Time: 11/28/2020 9:25 Normal [facility] Comp Metabolic Panelon 11-28 ALT [Catalytic activity/Vol] 30 U/L Normal 0-34 [facility] Comment on above: Result Comment: The ALT test is performed by an updated assay method. Please note that the reference intervals have been changed and are now sex specific. Performed By: #### C MP3 #### [facility] [address] [place], [place] Calcium [Mass/Vol] 8.7 mg/dL Normal 8.4-10.4 [facility] Comment on above: Performed By: #### C MP3 #### [facility] [address] [place], [place] Glucose [Mass/Vol] 100 mg/dL Normal 70-100 [facility] Comment on above: Performed By: #### C MP3 #### [facility] [address] [place], [place] ALP [Catalytic activity/Vol] 77 U/L Normal 38-126 [facility] Comment on above: Result Comment: Slig htly hemolysed, interpret with caution. Performed By: #### C MP3 #### [facility] [address] [place], [place] Anion gap [Moles/Vol] 5 Normal [facility] Comment on above: Performed By: #### C MP3 #### [facility] [address] [place], [place] AST [Catalytic activity/Vol] 26 U/L Normal 15-46 [facility] Comment on above: Result Comment: Slig htly hemolysed, interpret with caution. Performed By: #### C MP3 #### [facility] [address] [place], [place] Bilirubin [Mass/Vol] 0.6 mg/dL Normal 0.2-1.3 [facility] Comment on above: Performed By: #### C MP3 #### [facility] [address] [place], [place] CO2 [Moles/Vol] 25 mmol/L Normal 22-30 [facility] Comment on above: Performed By: #### C MP3 #### [place] [address] [place], [place] Creatinine [Mass/Vol] 0.66 mg/dL Normal 0.52-1.25 [facility] Comment on above: Performed By: #### C MP3 #### [place] [address] [address] [place], [place] GFR/1.73 sq M predicted among blacks MDRD (S/P/Bld) [Vol rate/Area] mL/min/{1.73_m2} Normal >60 [facility] Comment on above: Performed By: #### C MP3 #### [place] [address] [place], [place] GFR/1.73 sq M predicted among non-blacks MDRD (S/P/Bld) [Vol rate/Area] mL/min/{1.73_m2} Normal >60 [facility] Comment on above: Result Comment: KDIG [...] secretion. Performed By: #### C MP3 #### [place] [address] [address] [place], [place] Protein [Mass/Vol] 6.0 g/dL Low 6.3-8.2 [facility] Comment on above: Performed By: #### C MP3 #### [place] [address] [address] [place], [place] Urea nitrogen [Mass/Vol] 10 mg/dL Normal 7-20 [facility] Comment on above: Performed By: #### C MP3 #### [facility] [address] [place], [place] Potassium [Moles/Vol] 4.3 mmol/L Normal 3.5-5.1 [facility] Comment on above: Result Comment: Slig htly hemolysed, interpret with caution. Performed By: #### C MP3 #### [facility] [address] [place], [place] Sodium [Moles/Vol] 134 mmol/L Low 135-145 [facility] Comment on above: Performed By: #### C MP3 #### [facility] [address] [place], [place] Albumin [Mass/Vol] 3.3 g/dL Low 3.5-5.0 [facility] Comment on above: Performed By: #### C MP3 #### [facility] [address] [place], [place] Chloride [Moles/Vol] 105 mmol/L Normal 98-107 [facility] Comment on above: Performed By: #### C MP3 #### [facility] [address] [place], [place] Comprehensive Metabolic Pane gigi 11-28-2020 Albumin [Mass/Vol] 3.3 g/dL Low 3.5 - 5 g/dL [place], [place] ALP [Catalytic activity/Vol] 77 U/L 38 - 126 U/L [place], [place] Comment on above: Slightly hemolysed, interpret with caution. ALT [Catalytic activity/Vol] 30 U/L 0 - 34 U/L [place] Comment on above: The ALT test is perf ormed by an updated assay method. Please note that the reference intervals have been changed and are now sex specific. Anion gap [Moles/Vol] 5 mmol/L [place], [place] AST [Catalytic activity/Vol] 26 U/L 15 - 46 U/L [place], [place] Comment on above: Slightly hemolysed, interpret with caution. Bilirubin Ql (U) 0.6 mg/dL 0.2 - 1.3 mg/dL [place], [place] Calcium [Mass/Vol] 8.7 mg/dL 8.4 - 10. 4 mg/dL [place], [place] Chloride [Moles/Vol] 105 mmol/L 98 - 10 7 mmol/L [place] CO2 [Moles/Vol] 25 mmol/L 22 - 30 mmol/L [place] Creatinine [Mass/Vol] 0.66 mg/dL 0.52 - 1.25 mg/dL [place], [place] EGFR IF NonAfrican [place]an >90.0 >60 mL/min [place], [place] Comment on above: KDIGO guidelines pro [...] MDRD (S/P/Bld) [Vol rate/Area] mL/min/{1.73_m2} >60 mL/min [place], [place] Glucose [Mass/Vol] 100 mg/dL 70 - 100 mg/dL [place], [place] Interpretation and review of laboratory results Abnormal [place] Potassium [Moles/Vol] 4.3 mmol/L 3.5 - 5.1 mmol/L [place], [place] Comment on above: Slightly hemolysed, interpret with caution. Protein [Mass/Vol] 6.0 g/dL Low 6.3 - 8.2 g/dL [place], [place] Sodium [Moles/Vol] 134 mmol/L Low 135 - 145 mmol/L [place], [place] Urea nitrogen [Mass/Vol] 10 mg/dL 7 - 20 mg/dL [place] Test Performed by [facility], [address] [place] [address] [place], [place] Glucose,Bedsideon 11-28-2020 Glucose [Mass/Vol] 111 mg/dL High 70-100 [facility] Comment on above: Result Comment: Test performed by glucose meter. Results may be 10%-15% lower than serum/plasma values. (CLIA ID [id number]) Performed By: #### B GLU #### [facility] [address] [place] [address] Glucose [Mass/Vol] 166 mg/dL High 70-100 [facility] Comment on above: Result Comment: Test performed by glucose meter. Results may be 10%-15% lower than serum/plasma values. (CLIA ID [id number]) Performed By: #### B GLU #### [facility] [address] [place] [address] Glucose [Mass/Vol] 215 mg/dL High 70-100 [facility] Comment on above: Result Comment: Test performed by glucose meter. Results may be 10%-15% lower than serum/plasma values. (CLIA ID [id number]) Performed By: #### B GLU #### [facility] [address] [place] [address] POCT Glucoseon 11-28-2020 Glucose [Mass/Vol] 111 mg/dL High 70 - 100 mg/dL [place] Comment on above: Test performed by gl ucose meter. Results may be 10%-15% lower than serum/plasma values. (CLIA ID [id number]) Interpretation and review of laboratory results Abnormal [place] Test Performed by [facility], [address] [place] [address] [place] Glucose [Mass/Vol] 166 mg/dL High 70 - 100 mg/dL [place] Comment on above: Test performed by gl ucose meter. Results may be 10%-15% lower than serum/plasma values. (CLIA ID [id number]) Interpretation and review of laboratory results Abnormal [facility] MARYAM Test Performed by [facility], [address] [place] [address] [place] Glucose [Mass/Vol] 215 mg/dL High 70 - 100 mg/dL [place] Comment on above: Test performed by gl ucose meter. Results may be 10%-15% lower than serum/plasma values. (CLIA ID [id number]) Interpretation and review of laboratory results Abnormal [facility] MARYAM Test Performed by [facility], [address] [place] [address] [place], [place] Surgical Pathologyon 021 Sodium [Moles/Vol] SEE BELOW [facility] 1 [id number] [facility] OF [facility] PATHOLOGY AND LABORATORY MEDICINE [address] [place] [address] FINAL SURGICAL PATHOLOGY REPORT NAME: WILL JACINTO : 1965 55 Y F BILLING NO.: [id number] LOCATION: [address] [place] [address] PROCEDURE 11/26/2020 DATE: SURGEON: VIRGIL MARSHALL M.D. [...] residual atypical hyperplasia. Follow-up and rebiopsy recommended. HI/HI Signature> ALLEN JERRY M.D. CLINICAL INFORMATION: Not [...] characteristics determined by the clinical laboratories of [facility]. They have not been cleared by [...] negativity on decalcified specimens. Professional Performing Location: [address] [address]. DEPARTMENT OF PATHOLOGY AND LABORATORY MEDICINE [place], [place] [address] [place] XR ABDOMEN (KUB) (SINGLE AP VIEW)on 11-28-2020 [facility] Incoming Radiology Results From [facility] - 11/28/2020 9:26 AM EST Patient Name: WILL JACINTO Diagnostic Radiology ACCESSION EXAM DATE/TIME PROCEDURE ORDERING PROVIDER [id number] 11/28/2020 09:00 EST CR Abdomen AP MD MARTIN KHALED CPT code 58640 Reason For Exam (CR Abdomen AP) ileus [...] RISA Transcribed Date and Time: 11/28/2020 9:25 [place] Patient Name: WILL JACINTO Diagnostic Radiology ACCESSION EXAM DATE/TIME PROCEDURE ORDERING PROVIDER [id number] 11/28/2020 09:00 EST CR Abdomen AP MD MARTIN KHALED CPT code 36136 Reason For Exam (CR Abdomen AP) ileus [...] RISA Transcribed Date and Time: 11/28/2020 9:25 [facility], [place] CR Abdomen APon 11-27-2020 CR Abdomen AP Patient Name: WILL ALVARADO Diagnostic Radiology ACCESSION EXAM DATE/TIME PROCEDURE ORDERING PROVIDER [id number] 11/27/2020 08:28 EST CR Abdomen AP MD JD, CHAU CPT code 48029 Reason For Exam (CR Abdomen AP) ileus [...] Transcribed Date and Time: 11/27/2020 8:38 Normal [facility] Comp Metabolic Panelon 11-27 ALP [Catalytic activity/Vol] 97 U/L Normal 38-126 [facility] Comment on above: Performed By: #### C MP3 #### [facility] [address] [place], [place] ALT [Catalytic activity/Vol] 34 U/L Normal 0-34 [facility] Comment on above: Result Comment: The ALT test is performed by an updated assay method. Please note that the reference intervals have been changed and are now sex specific. Performed By: #### C MP3 #### [facility] [address] [place], [place] Anion gap [Moles/Vol] 6 Normal [facility] Comment on above: Performed By: #### C MP3 #### [facility] [address], [place] AST [Catalytic activity/Vol] 26 U/L Normal 15-46 [facility] Comment on above: Performed By: #### C MP3 #### [facility] [address] [facility], [place] Bilirubin [Mass/Vol] 0.6 mg/dL Normal 0.2-1.3 [facility] Comment on above: Performed By: #### C MP3 #### [facility] [address] [facility], [place] Calcium [Mass/Vol] 8.2 mg/dL Low 8.4-10.4 [facility] Comment on above: Performed By: #### C MP3 #### [facility] [address] [facility], [place] CO2 [Moles/Vol] 21 mmol/L Low 22-30 [facility] Comment on above: Performed By: #### C MP3 #### [facility] [address] [place], [place] Glucose [Mass/Vol] 225 mg/dL High 70-100 [facility] Comment on above: Performed By: #### C MP3 #### [facility] [address] [facility], [place] Protein [Mass/Vol] 6.1 g/dL Low 6.3-8.2 [facility] Comment on above: Performed By: #### C MP3 #### [facility] [address] [place], [place] Urea nitrogen [Mass/Vol] 13 mg/dL Normal 7-20 [facility] Comment on above: Performed By: #### C MP3 #### [facility] [address] [facility], [place] Creatinine [Mass/Vol] 0.57 mg/dL Normal 0.52-1.25 [facility] Comment on above: Performed By: #### C MP3 #### [facility] [address] [facility], [place] GFR/1.73 sq M predicted among blacks MDRD (S/P/Bld) [Vol rate/Area] mL/min/{1.73_m2} Normal >60 [facility] Comment on above: Performed By: #### C MP3 #### [address] [address] GFR/1.73 sq M predicted among non-blacks MDRD (S/P/Bld) [Vol rate/Area] mL/min/{1.73_m2} Normal >60 [facility] Comment on above: Result Comment: KDIG [...] secretion. Performed By: #### C MP3 #### [place] [address] [place], [place] Albumin [Mass/Vol] 3.3 g/dL Low 3.5-5.0 [facility] Comment on above: Performed By: #### C MP3 #### [address] [address] Chloride [Moles/Vol] 104 mmol/L Normal 98-107 [facility] Comment on above: Performed By: #### C MP3 #### [address] [address] Potassium [Moles/Vol] 4.2 mmol/L Normal 3.5-5.1 [facility] Comment on above: Performed By: #### C MP3 #### [address] [address] Sodium [Moles/Vol] 132 mmol/L Low 135-145 [facility] Comment on above: Performed By: #### C MP3 #### [address] [address] Comprehensive Metabolic Pane gigi 11-27-2020 Albumin [Mass/Vol] 3.3 g/dL Low 3.5 - 5 g/dL [place], [place] ALP [Catalytic activity/Vol] 97 U/L 38 - 126 U/L [place], [place] ALT [Catalytic activity/Vol] 34 U/L 0 - 34 U/L [place] Comment on above: The ALT test is perf ormed by an updated assay method. Please note that the reference intervals have been changed and are now sex specific. Anion gap [Moles/Vol] 6 mmol/L [place], [place] AST [Catalytic activity/Vol] 26 U/L 15 - 46 U/L [place], [place] Bilirubin Ql (U) 0.6 mg/dL 0.2 - 1.3 mg/dL [place], [place] Calcium [Mass/Vol] 8.2 mg/dL Low 8.4 - 10. 4 mg/dL [place] Chloride [Moles/Vol] 104 mmol/L 98 - 10 7 mmol/L [place] CO2 [Moles/Vol] 21 mmol/L Low 22 - 30 mmol/L [place] Creatinine [Mass/Vol] 0.57 mg/dL 0.52 - 1.25 mg/dL [place], [place] EGFR IF NonAfrican [place]dean >90.0 >60 mL/min [place], [place] Comment on above: KDIGO guidelines pro [...] MDRD (S/P/Bld) [Vol rate/Area] mL/min/{1.73_m2} >60 mL/min [facility], [place] Glucose [Mass/Vol] 225 mg/dL High 70 - 100 mg/dL [facility], [place] Interpretation and review of laboratory results Abnormal [place], [place] Potassium [Moles/Vol] 4.2 mmol/L 3.5 - 5.1 mmol/L [facility], [place] Protein [Mass/Vol] 6.1 g/dL Low 6.3 - 8.2 g/dL [place], [place] Sodium [Moles/Vol] 132 mmol/L Low 135 - 145 mmol/L [facility], [place] Urea nitrogen [Mass/Vol] 13 mg/dL 7 - 20 mg/dL [place], [place] Test Performed by [facility], [address] [place] [id number] [place] [address] EKG 12 Leadon 11-27-2020 [facility] Incoming Cardiology Results From [facility] - 11/27/2020 10:03 AM EST [facility] Test Date: 2020-11-26 Pat Name: Will Jacinto Department: 1A7E Room: 1714 Gender: F 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: SARAN : 1965 Requested By: GABO ESTRADA Order Number: [id number] Reading MD: Jelena Davidson Measurements Intervals [place] Rate: 85 P: 38 HI: 159 QRS: -39 QRSD: 105 T: 29 QT: 382 QTc: 455 Interpretive Statements Sinus rhythm Left ventricular hypertrophy Anterior Q waves, possibly due to LVH Electronically Signed On 11-27-2020 10:02:38 EST by Jelena Davidson [facility] MARYAM [facility] Test Date: 2020-11-26 Pat Name: Will Jacinto Department: 1A7E Room: [facility] 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 Performed By: #### B GLU #### [facility] [address] [place] [address] Glucose [Mass/Vol] mg/dL High 70-100 [facility] Comment on above: Result Comment: Test performed by glucose meter. Results may be 10%-15% lower than serum/plasma values. (CLIA ID [id number]) Performed By: #### B GLU #### [facility] [address] [place] [address] Glucose,Bedsideon 11-27-2020 Glucose [Mass/Vol] 91 mg/dL Normal 70-100 [facility] Comment on above: Result Comment: Test performed by glucose meter. Results may be 10%-15% lower than serum/plasma values. (CLIA ID [id number]) Performed By: #### B GLU #### [facility] [address] [place] [address] Glucose [Mass/Vol] 134 mg/dL High 70-100 [facility] Comment on above: Result Comment: Test performed by glucose meter. Results may be 10%-15% lower than serum/plasma values. (CLIA ID [id number]) Performed By: #### B GLU #### [facility] [address] [place] [address] Glucose [Mass/Vol] 205 mg/dL High 70-100 [facility] Comment on above: Result Comment: Test performed by glucose meter. Results may be 10%-15% lower than serum/plasma values. (CLIA ID [id number]) Performed By: #### B GLU #### [facility] [address] [place] [address] Glucose [Mass/Vol] 223 mg/dL High 70-100 [facility] Comment on above: Result Comment: Test performed by glucose meter. Results may be 10%-15% lower than serum/plasma values. (CLIA ID [id number]) Performed By: #### B GLU #### [place] [address] [place] [address] POC Glucose, Whole Bloodon 0 11-27-2020 Glucose [Mass/Vol] mg/dL High 70 - 100 mg/dL [place], [place] Comment on above: Test performed by gl ucose meter. Results may be 10%-15% lower than serum/plasma values. (CLIA ID [id number]) Interpretation and review of laboratory results Abnormal [place], [place] Sodium [Moles/Vol] see below [place], [place] Comment on above: No confirmation rece ived. Test Performed by [facility], [facility] [place] [address] [place], [place] POCT Glucoseon 11-27-2020 Glucose [Mass/Vol] 91 mg/dL 70 - 100 mg/dL [place], [place] Comment on above: Test performed by gl ucose meter. Results may be 10%-15% lower than serum/plasma values. (CLIA ID [id number]) Test Performed by [facility], [facility] [place] [address] [place], [place] Glucose [Mass/Vol] 134 mg/dL High 70 - 100 mg/dL [place], [place] Comment on above: Test performed by gl ucose meter. Results may be 10%-15% lower than serum/plasma values. (CLIA ID [id number]) Interpretation and review of laboratory results Abnormal [place] Test Performed by [facility], [place] [address] [place], [place] Glucose [Mass/Vol] 205 mg/dL High 70 - 100 mg/dL [place] Comment on above: Test performed by gl ucose meter. Results may be 10%-15% lower than serum/plasma values. (CLIA ID [id number]) Interpretation and review of laboratory results Abnormal [facility] [place], [place] Test Performed by [place] [address] [place] [address] [place], [place] Glucose [Mass/Vol] 223 mg/dL High 70 - 100 mg/dL [place], [place] Comment on above: Test performed by gl ucose meter. Results may be 10%-15% lower than serum/plasma values. (CLIA ID [id number]) Interpretation and review of laboratory results Abnormal [place] Test Performed by [facility], [place] [address] [place] XR ABDOMEN (KUB) (SINGLE AP VIEW)on 11-27-2020 Patient Name: WILL ALVARADO Diagnostic Radiology ACCESSION EXAM DATE/TIME PROCEDURE ORDERING PROVIDER [id number] 11/27/2020 08:28 EST CR Abdomen AP MD MARTIN KHALED CPT code 27857 Reason For Exam (CR Abdomen AP) ileus [...] JASON Transcribed Date and Time: 11/27/2020 8:38 [place], [place] Nati Jones Incoming Radiology Results From [facility] - 11/27/2020 8:41 AM EST Patient Name: WILL JACINTO Diagnostic Radiology ACCESSION EXAM DATE/TIME PROCEDURE ORDERING PROVIDER [id number] 11/27/2020 08:28 EST CR Abdomen AP MD MARTIN KHALED CPT code 64199 Reason For Exam (CR Abdomen AP) ileus [...] JASON Transcribed Date and Time: 11/27/2020 8:38 [facility] Metabolic Panelon 11-26 ALP [Catalytic activity/Vol] 88 U/L Normal 38-126 [facility] Comment on above: Performed By: #### B GLU #### [facility] [address] [place] [address] ALT [Catalytic activity/Vol] 33 U/L Normal 0-34 [facility] Comment on above: Result Comment: The ALT test is performed by an updated assay method. Please note that the reference intervals have been changed and are now sex specific. Performed By: #### B GLU #### [facility] [address] [place] [address] Calcium [Mass/Vol] 8.9 mg/dL Normal 8.4-10.4 [facility] Comment on above: Performed By: #### B GLU #### [facility] [address] [place] [address] Glucose [Mass/Vol] 188 mg/dL High 70-100 [facility] Comment on above: Performed By: #### B GLU #### [facility] [address] [place] [address] Urea nitrogen [Mass/Vol] 10 mg/dL Normal 7-20 [facility] Comment on above: Performed By: #### B GLU #### [facility] [address] [place], [place] Anion gap [Moles/Vol] 7 Normal [facility] Comment on above: Performed By: #### B GLU #### [facility] [address] [place], [place] AST [Catalytic activity/Vol] 29 U/L Normal 15-46 [facility] Comment on above: Performed By: #### B GLU #### [facility] [address] [place], [place] Bilirubin [Mass/Vol] 0.5 mg/dL Normal 0.2-1.3 [facility] Comment on above: Performed By: #### B GLU #### [facility] [address] [place], [place] CO2 [Moles/Vol] 25 mmol/L Normal 22-30 [facility] Comment on above: Performed By: #### B GLU #### [place] [address] [address] [place], [place] Creatinine [Mass/Vol] 0.63 mg/dL Normal 0.52-1.25 [facility] Comment on above: Performed By: #### B GLU #### [facility] [address] [place], [place] GFR/1.73 sq M predicted among blacks MDRD (S/P/Bld) [Vol rate/Area] mL/min/{1.73_m2} Normal >60 [facility] Comment on above: Performed By: #### B GLU #### [facility] [address] [place], [place] GFR/1.73 sq M predicted among non-blacks MDRD (S/P/Bld) [Vol rate/Area] mL/min/{1.73_m2} Normal >60 [facility] Comment on above: Result Comment: KDIG [...] secretion. Performed By: #### B GLU #### [facility] [address] [place], [place] Protein [Mass/Vol] 6.2 g/dL Low 6.3-8.2 [facility] Comment on above: Performed By: #### B GLU #### [place] [address] [address] [place], [place] Albumin [Mass/Vol] 3.4 g/dL Low 3.5-5.0 [facility] Comment on above: Performed By: #### B GLU #### [place] [address] [address] [place], [place] Chloride [Moles/Vol] 98 mmol/L Normal 98-107 [facility] Comment on above: Performed By: #### B GLU #### [place] [address] [address] [place], [place] Potassium [Moles/Vol] 3.9 mmol/L Normal 3.5-5.1 [facility] Comment on above: Performed By: #### B GLU #### [place] [address] [address] [place], [place] Sodium [Moles/Vol] 130 mmol/L Low 135-145 [facility] Comment on above: Performed By: #### B GLU #### [place] [address] [address] [place], [place] Comprehensive Metabolic Pane gigi 11-26-2020 Albumin [Mass/Vol] 3.4 g/dL Low 3.5 - 5 g/dL [place] ALP [Catalytic activity/Vol] 88 U/L 38 - 126 U/L [place] ALT [Catalytic activity/Vol] 33 U/L 0 - 34 U/L [place] Comment on above: The ALT test is perf ormed by an updated assay method. Please note that the reference intervals have been changed and are now sex specific. Anion gap [Moles/Vol] 7 mmol/L [place], [place] AST [Catalytic activity/Vol] 29 U/L 15 - 46 U/L [place], [place] Bilirubin Ql (U) 0.5 mg/dL 0.2 - 1.3 mg/dL [place] Calcium [Mass/Vol] 8.9 mg/dL 8.4 - 10. 4 mg/dL [place] Chloride [Moles/Vol] 98 mmol/L 98 - 10 7 mmol/L [place] CO2 [Moles/Vol] 25 mmol/L 22 - 30 mmol/L [place] Creatinine [Mass/Vol] 0.63 mg/dL 0.52 - 1.25 mg/dL [place], [place] EGFR IF NonAfrican [place] >90.0 >60 mL/min [place], [place] Comment on above: KDIGO guidelines pro [...] MDRD (S/P/Bld) [Vol rate/Area] mL/min/{1.73_m2} >60 mL/min [place], [place] Glucose [Mass/Vol] 188 mg/dL High 70 - 100 mg/dL [place] Interpretation and review of laboratory results Abnormal [place], [place] Potassium [Moles/Vol] 3.9 mmol/L 3.5 - 5.1 mmol/L [place] Protein [Mass/Vol] 6.2 g/dL Low 6.3 - 8.2 g/dL [place], [place] Sodium [Moles/Vol] 130 mmol/L Low 135 - 145 mmol/L [place], [place] Urea nitrogen [Mass/Vol] 10 mg/dL 7 - 20 mg/dL [place] Test Performed by [facility], [address] [place] [address] [place], [place] Glucose,Bedsideon 11-26-2020 Glucose [Mass/Vol] 254 mg/dL High 70-100 [facility] Comment on above: Result Comment: Test performed by glucose meter. Results may be 10%-15% lower than serum/plasma values. (CLIA ID [id number]) Performed By: #### B GLU #### [address] [place] [address] [place] [address] Glucose [Mass/Vol] 383 mg/dL High 70-100 [facility] Comment on above: Result Comment: Test performed by glucose meter. Results may be 10%-15% lower than serum/plasma values. (CLIA ID [id number]) Performed By: #### B GLU #### [place] [address] [place] [address] Glucose [Mass/Vol] 206 mg/dL High 70-[address] [place] [address] Comment on above: Result Comment: Test performed by glucose meter. Results may be 10%-15% lower than serum/plasma values. (CLIA ID [id number]) Performed By: #### B GLU #### [place] [address] [place] [address] Glucose [Mass/Vol] 169 mg/dL High 70-100 [facility] Comment on above: Result Comment: Test performed by glucose meter. Results may be 10%-15% lower than serum/plasma values. (CLIA ID [id number]) Performed By: #### B GLU #### [place] [address] [place] [address] Glucose [Mass/Vol] 168 mg/dL High 70-100 [facility] Comment on above: Result Comment: Test performed by glucose meter. Results may be 10%-15% lower than serum/plasma values. 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 Two ghkmon-uc-uslig stitches were used to obtain hemostasis with [...] devices during the surgery. Diskriter Job ID: [id number] Virgil Marshall MD DOD:11/26/2020 10:39 A RLK/dsk DOT:11/26/2020 11: (more content not included)... Normal [facility] Otheron 11-26-2020 Test Performed by [facility], [address] [place] [address] [facility] POCT Glucoseon 11-26-2020 Glucose [Mass/Vol] 254 mg/dL High 70 - 100 mg/dL [facility] [place] Comment on above: Test performed by gl ucose meter. Results may be 10%-15% lower than serum/plasma values. (CLIA ID [id number]) Interpretation and review of laboratory results Abnormal [facility] [place] Glucose [Mass/Vol] 383 mg/dL High 70 - 100 mg/dL [facility] [place] Comment on above: Test performed by gl ucose meter. Results may be 10%-15% lower than serum/plasma values. (CLIA ID [id number]) Interpretation and review of laboratory results Abnormal [facility] [place] Test Performed by [employer] [facility] [address] [facility] [place] [address] [facility] Glucose [Mass/Vol] 206 mg/dL High 70 - 100 mg/dL [facility] [place] Comment on above: Test performed by gl ucose meter. Results may be 10%-15% lower than serum/plasma values. (CLIA ID [id number]) Interpretation and review of laboratory results Abnormal [facility] [place] Test Performed by [facility], [address] [place] [address] [facility] [place] Glucose [Mass/Vol] 169 mg/dL High 70 - 100 mg/dL [facility] [place] Comment on above: Test performed by gl ucose meter. Results may be 10%-15% lower than serum/plasma values. (CLIA ID [id number]) Interpretation and review of laboratory results Abnormal [facility] [place] Test Performed by [facility], [address] [place] [address] [place], [place] Surgical Pathologyon 021 Surgical Pathology [id number] [facility] PATHOLOGY AND LABORATORY MEDICINE [address] [place] [address] FINAL SURGICAL PATHOLOGY REPORT NAME: TABALEX WILL M : 1965 55 Y F [facility] NO[facility] [id number] [facility]: [facility] [address] [place] PROCEDURE 11/26/2020 DATE: SURGEON: VIRGIL MARSHALL M.D. [...] residual atypical hyperplasia. Follow-up and rebiopsy recommended. HI/HI Signature> ALLEN JERRY M.D. CLINICAL INFORMATION: Not [...] characteristics determined by the clinical laboratories of [facility]. They have not been cleared by [...] negativity on decalcified specimens. Professional Performing Location: [place] [address] [place] [address]. DEPARTMENT OF PATHOLOGY AND LABORATORY MEDICINE [place], [place] [address] Normal [facility] TSH without Reflexon 021 TSH Qn 2.356 u[IU]/mL 0.465 - 4.68 u[IU]/mL [place], [place] Test Performed by [facility], [facility] [place], [place] [address] [place] [address] Thyroid Stim. Hormoneon 11-08 Thyroid Stim. Hormone 2.356 u[IU]/mL Normal 0.465-4.68 0 [facility] Comment on above: Performed By: #### B GLU #### [facility] [address] [place] [address] Troponin Ion 11-26-2020 Troponin I.cardiac [Mass/Vol] ng/mL Normal 0.000-0.034 [place], [place] Comment on above: . Result Comment: . Performed By: #### T CHERELLEN #### [address] [place] [address] CBC Auto Differentialon 11-08 Absolute Baso # 0.1 10*3/uL 0 - 0.2 10*3/uL [place], [place] Absolute Neut # 4.9 10*3/uL 1.8 - 7 10*3/uL [place] Basophils/100 WBC (Bld) 0.9 % 0 - 2 % [place], [place] Eosinophils (Bld) [#/Vol] 0.1 10*3/uL 0 - 0.5 10*3/uL [place] Eosinophils/100 WBC (Bld) 1.8 % 1 - 6 % [place] Erythrocyte distribution width (RBC) [Ratio] 16.1 % High 11.5 - 14.5 % [place] Granulocytes/100 WBC (Bld) 64.4 % 40 - 80 % [place] Hematocrit (Bld) [Volume fraction] 29.4 % Low 35 - 47 % [place] Hemoglobin (Bld) [Mass/Vol] 10.0 g/dL Low 11.7 - 16 g/dL [place] Interpretation and review of laboratory results Abnormal [place] Lymphocytes (Bld) [#/Vol] 2.0 10*3/uL 1 - 4.3 10*3/uL [place] Lymphocytes/100 WBC (Bld) 25.7 % 20 - 40 % [place] MCH (RBC) [Entitic mass] 29.8 pg 26 - 34 pg [place] MCHC (RBC) [Mass/Vol] 33.9 % 32 - 36 % [place] MCV (RBC) [Entitic vol] 87.7 fL 79 - 98 fL [place], [place] Monocytes (Bld) [#/Vol] 0.5 10*3/uL 0 - 0.8 10*3/uL [place], [place] Monocytes/100 WBC (Bld) 7.2 % 2 - 10 % [place] Platelet mean volume (Bld) [Entitic vol] 7.6 fL 7.4 - 10.4 fL [place] Platelets (Bld) [#/Vol] 352 10*3/uL 140 - 440 10*3/uL [place] RBC (Bld) [#/Vol] 3.35 10*6/uL Low 3.8 - 5.2 10*6/uL [place] WBC (Bld) [#/Vol] 7.6 10*3/uL 3.6 - 10.7 10*3/uL [place] Test Performed by [facility], [address], [place], [place] [address] [place] Comprehensive Metabolic Pane gigi 11-25-2020 Albumin [Mass/Vol] 3.1 g/dL Low 3.5 - 5 g/dL [place] ALP [Catalytic activity/Vol] 83 U/L 38 - 126 U/L [place] ALT [Catalytic activity/Vol] 31 U/L 0 - 34 U/L [place] Comment on above: The ALT test is perf ormed by an updated assay method. Please note that the reference intervals have been changed and are now sex specific. Anion gap [Moles/Vol] 5 mmol/L [place] AST [Catalytic activity/Vol] 26 U/L 15 - 46 U/L [place] Bilirubin Ql (U) 0.4 mg/dL 0.2 - 1.3 mg/dL [place] Calcium [Mass/Vol] 8.4 mg/dL 8.4 - 10. 4 mg/dL [place] Chloride [Moles/Vol] 103 mmol/L 98 - 10 7 mmol/L [place] CO2 [Moles/Vol] 28 mmol/L 22 - 30 mmol/L [place] Creatinine [Mass/Vol] 0.76 mg/dL 0.52 - 1.25 mg/dL [place] EGFR IF NonAfrican [place] 88.9 mL/min >60 [place] Comment on above: KDIGO guidelines pro [...] MDRD (S/P/Bld) [Vol rate/Area] mL/min/{1.73_m2} >60 mL/min [place], [place] Glucose [Mass/Vol] 107 mg/dL High 70 - 100 mg/dL [place] Interpretation and review of laboratory results Abnormal [place] Potassium [Moles/Vol] 3.8 mmol/L 3.5 - 5.1 mmol/L [facility], [place] Protein [Mass/Vol] 5.8 g/dL Low 6.3 - 8.2 g/dL [place] Sodium [Moles/Vol] 136 mmol/L 135 - 145 mmol/L [place], [place] Urea nitrogen [Mass/Vol] 11 mg/dL 7 - 20 mg/dL [place] Test Performed by [facility], 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: : 1965 Requested By: KYLAH DAVID Order Number: [id number] Reading MD: Justin Ramirez Measurements Intervals [place] Rate: 75 P: 45 HI: 160 QRS: -36 QRSD: 108 T: 18 QT: 392 QTc: 438 Interpretive Statements SINUS RHYTHM LATE PRECORDIAL R/S TRANSITION LEFT VENTRICULAR HYPERTROPHY LEFT ANTERIOR FASCICULAR BLOCK Compared to ECG 11/22/2020 18:01:34 Sinus tachycardia no longer present Electronically Signed On 11-25-2020 8:16:57 EST by Justin Ramirez [facility] Test Date: 2020-11-24 Pat Name: Will Jacinto Department: [facility] Room: 158 Gender: F 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: : 1965 Requested By: KYLAH DAVID Order Number: [id number] Reading MD: Justin Ramirez Measurements Intervals [place] Rate: 75 P: 45 HI: 160 QRS: -36 QRSD: 108 T: 18 QT: 392 QTc: 438 Interpretive Statements SINUS RHYTHM LATE PRECORDIAL R/S TRANSITION LEFT VENTRICULAR HYPERTROPHY LEFT ANTERIOR FASCICULAR BLOCK Compared to ECG 11/22/2020 18:01:34 Sinus tachycardia no longer present Electronically Signed On 11-25-2020 8:16:57 EST by Justin Ramirez [place], [place] POC Glucose, Whole Bloodon 0 11-25-2020 Glucose [Mass/Vol] mg/dL High 70 - 100 mg/dL [place], [place] Comment on above: Test performed by [employer] ucose meter. Results may be 10%-15% lower than serum/plasma values. (CLIA ID [id number]) Interpretation and review of laboratory results Abnormal [facility] [employer] [place] Sodium [Moles/Vol] see below [facility] [place] Comment on above: No confirmation rece ived. Test Performed by [facility], [address], [place], [place] [address] [facility] [place] POCT Glucoseon 11-25-2020 Glucose [Mass/Vol] 168 mg/dL High 70 - 100 mg/dL [place], [place] Comment on above: Test performed by [employer] ucose meter. Results may be 10%-15% lower than serum/plasma values. (CLIA ID [id number]) Interpretation and review of laboratory results Abnormal [facility] [place] Test Performed by [facility], [address] [place] [address] [facility] [place] Glucose [Mass/Vol] 248 mg/dL High 70 - 100 mg/dL [facility] [place] Comment on above: Test performed by gl ucose meter. Results may be 10%-15% lower than serum/plasma values. (CLIA ID [id number]) Interpretation and review of laboratory results Abnormal [facility] [place] Test Performed by [facility], [address], [place], [place] [address] [facility] Glucose [Mass/Vol] 202 mg/dL High 70 - 100 mg/dL [facility] [place] Comment on above: Test performed by gl ucose meter. Results may be 10%-15% lower than serum/plasma values. (CLIA ID [id number]) Interpretation and review of laboratory results Abnormal [facility] Test Performed by [facility] [employer], [address], [place], [place] [address] [facility] Glucose [Mass/Vol] 121 mg/dL High 70 - 100 mg/dL [facility] [place] Comment on above: Test performed by gl ucose meter. Results may be 10%-15% lower than serum/plasma values. (CLIA ID [id number]) Interpretation and review of laboratory results Abnormal [facility] Test Performed by [facility] [employer] [employer], [address], [place], [place] [address] [facility] Troponinon 11-25-2020 Troponin I.cardiac [Mass/Vol] ng/mL 0 - 0.034 ng/mL [facility] [place] Comment on above: . Test Performed by [facility] [employer] [employer], [address], [place], [place] [address] [facility] US NON OB TRANSVAGINALon [facility] 11/25/2020 10:46 AM EST Patient Name: WILL JACINTO Ultrasound ACCESSION EXAM DATE/TIME PROCEDURE ORDERING PROVIDER [id number] 11/25/2020 10:38 EST US Transvaginal MD DANIELS DIANA CHRISTINE CPT code 23535 Reason For Exam (US Transvaginal) AUB Report [...] NICHOLAS Transcribed Date and Time: 11/25/2020 10:46 [place], [place] Patient Name: [id number] Ultrasound ACCESSION EXAM DATE/TIME PROCEDURE ORDERING PROVIDER [id number] 11/25/2020 10:38 EST US Transvaginal MD DANIELS DIANA CHRISTINE CPT code 40747 Reason For Exam (US Transvaginal) AUB Report [...] NICHOLAS Transcribed Date and Time: 11/25/2020 10:46 [place], [place] XR ABDOMEN (KUB) (SINGLE AP VIEW)on 11-25-2020 [facility] Incoming Radiology Results From [facility] - 11/25/2020 3:31 PM EST Patient Name: WILL JACINTO Diagnostic Radiology ACCESSION EXAM DATE/TIME PROCEDURE ORDERING PROVIDER [id number] 11/25/2020 15:08 EST CR Abdomen AP Lorenzo STAPLETON MICHAEL CPT code 98976 Reason For Exam (CR Abdomen AP) abd [...] NICHOLAS Transcribed Date and Time: 11/25/2020 3:31 [place], [place] Patient Name: WILL JACINTO Diagnostic Radiology ACCESSION EXAM DATE/TIME PROCEDURE ORDERING PROVIDER [id number] 11/25/2020 15:08 EST CR Abdomen AP Lorenzo STAPLETON MICHAEL CPT code 31717 Reason For Exam (CR Abdomen AP) abd [...] NICHOLAS Transcribed Date and Time: 11/25/2020 3:31 [place], [place] CBC Auto Differentialon 11-08 Absolute Baso # 0.0 10*3/uL 0 - 0.2 10*3/uL [place], [place] Absolute Neut # 5.4 10*3/uL 1.8 - 7 10*3/uL [place], [place] Basophils/100 WBC (Bld) 0.7 % 0 - 2 % [place] Eosinophils (Bld) [#/Vol] 0.1 10*3/uL 0 - 0.5 10*3/uL [place], [place] Eosinophils/100 WBC (Bld) 0.9 % Low 1 - 6 % [place] Erythrocyte distribution width (RBC) [Ratio] 16.3 % High 11.5 - 14.5 % [place] Granulocytes/100 WBC (Bld) 77.5 % 40 - 80 % [place] Hematocrit (Bld) [Volume fraction] 32.6 % Low 35 - 47 % [place] Hemoglobin (Bld) [Mass/Vol] 11.0 g/dL Low 11.7 - 16 g/dL [place] Interpretation and review of laboratory results Abnormal [place], [place] Lymphocytes (Bld) [#/Vol] 1.1 10*3/uL 1 - 4.3 10*3/uL [place], [place] Lymphocytes/100 WBC (Bld) 15.8 % Low 20 - 40 % [place] MCH (RBC) [Entitic mass] 29.4 pg 26 - 34 pg [place] MCHC (RBC) [Mass/Vol] 33.7 % 32 - 36 % [place] MCV (RBC) [Entitic vol] 87.4 fL 79 - 98 fL [place], [place] Monocytes (Bld) [#/Vol] 0.4 10*3/uL 0 - 0.8 10*3/uL [place], [place] Monocytes/100 WBC (Bld) 5.1 % 2 - 10 % [place], [place] Platelet mean volume (Bld) [Entitic vol] 7.9 fL 7.4 - 10.4 fL [place], [place] Platelets (Bld) [#/Vol] 332 10*3/uL 140 - 440 10*3/uL [place], [place] RBC (Bld) [#/Vol] 3.73 10*6/uL Low 3.8 - 5.2 10*6/uL [place], [place] WBC (Bld) [#/Vol] 6.9 10*3/uL 3.6 - 10.7 10*3/uL [place] Test Performed by [facility], [address], [place], [place] [address] [place], [place] Comprehensive Metabolic Pane gigi 11-24-2020 Albumin [Mass/Vol] 3.6 g/dL 3.5 - 5 g/dL [place], [place] ALP [Catalytic activity/Vol] 110 U/L 38 - 126 U/L [place] ALT [Catalytic activity/Vol] 36 U/L High 0 - 34 U/L [place], [place] Comment on above: The ALT test is perf ormed by an updated assay method. Please note that the reference intervals have been changed and are now sex specific. Anion gap [Moles/Vol] 7 mmol/L [place] AST [Catalytic activity/Vol] 31 U/L 15 - 46 U/L [place] Bilirubin Ql (U) 0.6 mg/dL 0.2 - 1.3 mg/dL [place] Calcium [Mass/Vol] 9.1 mg/dL 8.4 - 10. 4 mg/dL [place], [place] Chloride [Moles/Vol] 97 mmol/L Low 98 - 10 7 mmol/L [place] CO2 [Moles/Vol] 29 mmol/L 22 - 30 mmol/L [place] Creatinine [Mass/Vol] 0.74 mg/dL 0.52 - 1.25 mg/dL [place], [place] EGFR IF NonAfrican [place]dean >90.0 >60 mL/min [place], [place] Comment on above: KDIGO guidelines pro [...] MDRD (S/P/Bld) [Vol rate/Area] mL/min/{1.73_m2} >60 mL/min [place] Glucose [Mass/Vol] 304 mg/dL High 70 - 100 mg/dL [place], [place] Interpretation and review of laboratory results Abnormal [place], [place] Potassium [Moles/Vol] 4.3 mmol/L 3.5 - 5.1 mmol/L [place] Protein [Mass/Vol] 6.5 g/dL 6.3 - 8.2 g/dL [place], [place] Sodium [Moles/Vol] 133 mmol/L Low 135 - 145 mmol/L [place], [place] Urea nitrogen [Mass/Vol] 16 mg/dL 7 - 20 mg/dL [place] Test Performed by [facility], [address], [place], [place] [address] [place] Albumin [Mass/Vol] 3.6 g/dL 3.5 - 5 g/dL [place] ALP [Catalytic activity/Vol] 115 U/L 38 - 126 U/L [place] ALT [Catalytic activity/Vol] 35 U/L High 0 - 34 U/L [place] Comment on above: The ALT test is perf ormed by an updated assay method. Please note that the reference intervals have been changed and are now sex specific. Anion gap [Moles/Vol] 6 mmol/L [place] AST [Catalytic activity/Vol] 25 U/L 15 - 46 U/L [place] Bilirubin Ql (U) 0.6 mg/dL 0.2 - 1.3 mg/dL [place] Calcium [Mass/Vol] 9.0 mg/dL 8.4 - 10. 4 mg/dL [place] Chloride [Moles/Vol] 97 mmol/L Low 98 - 10 7 mmol/L [place] CO2 [Moles/Vol] 29 mmol/L 22 - 30 mmol/L [place] Creatinine [Mass/Vol] 0.78 mg/dL 0.52 - 1.25 mg/dL [place] EGFR IF NonAfrican [place] 86.1 mL/min >60 [place], [place] Comment on above: KDIGO guidelines pro [...] MDRD (S/P/Bld) [Vol rate/Area] mL/min/{1.73_m2} >60 mL/min [place] Glucose [Mass/Vol] 308 mg/dL High 70 - 100 mg/dL [place] Interpretation and review of laboratory results Abnormal [place] Potassium [Moles/Vol] 4.8 mmol/L 3.5 - 5.1 mmol/L [place] Protein [Mass/Vol] 6.6 g/dL 6.3 - 8.2 g/dL [place] Sodium [Moles/Vol] 132 mmol/L Low 135 - 145 mmol/L [place] Urea nitrogen [Mass/Vol] 18 mg/dL 7 - 20 mg/dL [place] Test Performed by [facility], [address] [place] [address] EKG 12 Leadon 11-24-2020 [facility] Incoming Cardiology Results From [facility] - 11/24/2020 6:48 PM EST [facility] Test Date: 2020-11-22 Pat Name: Will Jacinto Department: Room: 158 Gender: F 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: MALINDA : 1965 Requested By: JOEL NELSON Order Number: [id number] Reading MD: Brock Ortiz Measurements Intervals [place] Rate: 101 P: 58 HI: 176 QRS: -43 QRSD: 108 T: 47 QT: 380 QTc: 493 Interpretive Statements SINUS TACHYCARDIA LEFT ANTERIOR FASCICULAR BLOCK LATE PRECORDIAL R/S TRANSITION LEFT VENTRICULAR HYPERTROPHY Electronically Signed On 11-24-2020 18:47:09 EST by Brock Ortiz [facility] Test Date: 2020-11-22 Pat Name: Will Jacinto Department: Room: 158 Gender: F 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: MALINDA : 1965 Requested By: JOEL NELSON Order Number: [id number] Reading MD: Brock Ortiz Measurements Intervals [place] Rate: 101 P: 58 HI: 176 QRS: -43 QRSD: 108 T: 47 QT: 380 QTc: 493 Interpretive Statements SINUS TACHYCARDIA LEFT ANTERIOR FASCICULAR BLOCK LATE PRECORDIAL R/S TRANSITION LEFT VENTRICULAR HYPERTROPHY Electronically Signed On 11-24-2020 18:47:09 EST by Brock GraciaCD Diagnosticskristina [facility] POCT Glucoseon 11-24-2020 Glucose [Mass/Vol] 159 mg/dL High 70 - 100 mg/dL [facility] Comment on above: Test performed by gl ucose meter. Results may be 10%-15% lower than serum/plasma values. (CLIA ID [id number]) Interpretation and review of laboratory results Abnormal [facility] Test Performed by [facility], [address] [place], [place] [address] [facility] Glucose [Mass/Vol] 235 mg/dL High 70 - 100 mg/dL [facility] Comment on above: Test performed by gl ucose meter. Results may be 10%-15% lower than serum/plasma values. (CLIA ID [id number]) Interpretation and review of laboratory results Abnormal [facility] Test Performed by [facility], [address], [place], [place] [address] [facility] Glucose [Mass/Vol] 298 mg/dL High 70 - 100 mg/dL [facility] Comment on above: Test performed by gl ucose meter. Results may be 10%-15% lower than serum/plasma values. (CLIA ID [id number]) Interpretation and review of laboratory results Abnormal [place] Test Performed by [facility], [address], [place], [place] [address] [facility] Glucose [Mass/Vol] 358 mg/dL High 70 - 100 mg/dL [place], [place] Comment on above: Test performed by ucose meter. Results may be 10%-15% lower than serum/plasma values. (CLIA ID [id number]) Interpretation and review of laboratory results Abnormal [place] Test Performed by [facility], [address], [place], [place] [address] [place] Troponinon 11-24-2020 Troponin I.cardiac [Mass/Vol] ng/mL 0 - 0.034 ng/mL [place], [place] Comment on above: . Test Performed by [facility], [address], [place], [place] [address] [place] Troponin I.cardiac [Mass/Vol] ng/mL 0 - 0.034 ng/mL [place], [place] Comment on above: . Test Performed by [facility], [address], [place], [place] [address] [place] CBC Auto Differentialon 11-08 Absolute Baso # 0.0 10*3/uL 0 - 0.2 10*3/uL [place], [place] Absolute Neut # 7.6 10*3/uL High 1.8 - 7 10*3/uL [place], [place] Basophils/100 WBC (Bld) 0.3 % 0 - 2 % [place] Eosinophils (Bld) [#/Vol] 0.0 10*3/uL 0 - 0.5 10*3/uL [place], [place] Eosinophils/100 WBC (Bld) 0.1 % Low 1 - 6 % [place] Erythrocyte distribution width (RBC) [Ratio] 16.3 % High 11.5 - 14.5 % [place], [place] Granulocytes/100 WBC (Bld) 85.6 % High 40 - 80 % [place] Hematocrit (Bld) [Volume fraction] 33.4 % Low 35 - 47 % [place] Hemoglobin (Bld) [Mass/Vol] 11.2 g/dL Low 11.7 - 16 g/dL [place] Interpretation and review of laboratory results Abnormal [place] Lymphocytes (Bld) [#/Vol] 0.7 10*3/uL Low 1 - 4.3 10*3/uL [place], [place] Lymphocytes/100 WBC (Bld) 7.9 % Low 20 - 40 % [place] MCH (RBC) [Entitic mass] 29.5 pg 26 - 34 pg [place] MCHC (RBC) [Mass/Vol] 33.5 % 32 - 36 % [place] MCV (RBC) [Entitic vol] 88.0 fL 79 - 98 fL [place], [place] Monocytes (Bld) [#/Vol] 0.5 10*3/uL 0 - 0.8 10*3/uL [place], [place] Monocytes/100 WBC (Bld) 6.1 % 2 - 10 % [place] Platelet mean volume (Bld) [Entitic vol] 8.0 fL 7.4 - 10.4 fL [place], [place] Platelets (Bld) [#/Vol] 343 10*3/uL 140 - 440 10*3/uL [place] RBC (Bld) [#/Vol] 3.80 10*6/uL 3.8 - 5.2 10*6/uL [place], [place] WBC (Bld) [#/Vol] 8.9 10*3/uL 3.6 - 10.7 10*3/uL [place] Test Performed by [facility], [address], [place], [place] [address] [place] Comprehensive Metabolic Pane gigi 11-23-2020 Albumin [Mass/Vol] 3.9 g/dL 3.5 - 5 g/dL [place] ALP [Catalytic activity/Vol] 136 U/L High 38 - 126 U/L [place] ALT [Catalytic activity/Vol] 42 U/L High 0 - 34 U/L [place], [place] Comment on above: The ALT test is perf ormed by an updated assay method. Please note that the reference intervals have been changed and are now sex specific. Anion gap [Moles/Vol] 11 mmol/L [place] AST [Catalytic activity/Vol] 31 U/L 15 - 46 U/L [place] Bilirubin Ql (U) 0.6 mg/dL 0.2 - 1.3 mg/dL [place], [place] Calcium [Mass/Vol] 9.6 mg/dL 8.4 - 10. 4 mg/dL [place], [place] Chloride [Moles/Vol] 94 mmol/L Low 98 - 10 7 mmol/L [place] CO2 [Moles/Vol] 28 mmol/L 22 - 30 mmol/L [place] Creatinine [Mass/Vol] 0.86 mg/dL 0.52 - 1.25 mg/dL [place], [place] EGFR IF NonAfrican [place]an 76.5 mL/min >60 [place], [place] Comment on above: KDIGO guidelines pro [...] MDRD (S/P/Bld) [Vol rate/Area] 88.7 mL/min/{1.73_m2} >60 [place], [place] Glucose [Mass/Vol] 481 mg/dL Critically high 70 - 1 00 mg/dL [place] Interpretation and review of laboratory results Abnormal [place] Potassium [Moles/Vol] 4.8 mmol/L 3.5 - 5.1 mmol/L [place] Protein [Mass/Vol] 6.9 g/dL 6.3 - 8.2 g/dL [place], [place] Sodium [Moles/Vol] 133 mmol/L Low 135 - 145 mmol/L [place], [place] Urea nitrogen [Mass/Vol] 20 mg/dL 7 - 20 mg/dL [place] Test Performed by [facility], [address] [place] [address] [place] GLUCOSEon 11-23-2020 Glucose [Mass/Vol] 521 mg/dL Critically high 70 - 1 00 mg/dL [place] Interpretation and review of laboratory results Abnormal [place] Test Performed by [facility], [address] [place] [address] [place] Hemoglobin A1Con 11-23-2020 eAG 240 mg/dL [place] HbA1c (Bld) [Mass fraction] 10.0 % Abnormal [place], [place] Comment on above: Normal less than 5.7 % Prediabetes 5.7% to 6.4% Diabetes 6.5% or higher --HgbA1C levels may not be accurate in patients who have renal disease, received recent blood transfusions, are anemic, or who have dyshemoglobinemia. Interpretation and review of laboratory results Abnormal [facility] [employer] [facility] Test Performed by [facility], [address] [place] [address] [place], [place] POCT Glucoseon 11-23-2020 Glucose [Mass/Vol] 305 mg/dL High 70 - 100 mg/dL [place] Comment on above: Test performed by gl ucose meter. Results may be 10%-15% lower than serum/plasma values. (CLIA ID [id number]) Interpretation and review of laboratory results Abnormal [facility] [employer] [facility] Test Performed by [facility], [address] [place] [address] [place] Glucose [Mass/Vol] 427 mg/dL High 70 - 100 mg/dL [place], [place] Comment on above: Test performed by gl ucose meter. Results may be 10%-15% lower than serum/plasma values. (CLIA ID [id number]) Interpretation and review of laboratory results Abnormal [facility] [place] Test Performed by [facility], [address] [place] [address] [facility] [place], [place] Glucose [Mass/Vol] 408 mg/dL High 70 - 100 mg/dL [facility] [place] Comment on above: Test performed by gl ucose meter. Results may be 10%-15% lower than serum/plasma values. (CLIA ID [id number]) Interpretation and review of laboratory results Abnormal [facility] [place] Test Performed by [facility], [address] [place], [place] [address] [facility] [place] Glucose [Mass/Vol] 432 mg/dL High 70 - 100 mg/dL [facility] [place] Comment on above: Test performed by gl ucose meter. Results may be 10%-15% lower than serum/plasma values. (CLIA ID [id number]) Interpretation and review of laboratory results Abnormal [facility] [place] Test Performed by [facility], [address] [place], [place] [address] [facility], [place] Respiratory Panel, Molecular , with COVID-19 (Restricted: peds pts or suitable admitted adults)on 11-23-2020 Respiratory Panel Molecular, with COVID NEGATIVE: No targets were detected by the [employer] Upper Respiratory Pathogens PCR Panel. _ Expected Result: Not Detected [employer] Upper Respiratory Pathogens PCR Panel can detect [...] management decisions. This assay was developed by [employer] and distributed under an Emergency Use Authorization (EUA) granted by the FDA for the qualitative detection of SARS-CoV-2 nucleic acid. Provider and patient fact sheets can be found at https://www.fda.gov/medi a/434100/download and https://www.fda.gov/medi a/758230/download. [place] Test Performed by [facility], [address] [place] [address] [place] Basic Metabolic Panelon 11-08 Anion gap [Moles/Vol] 17 mmol/L [place] Calcium [Mass/Vol] 9.8 mg/dL 8.4 - 10. 4 mg/dL [place] Chloride [Moles/Vol] 94 mmol/L Low 98 - 10 7 mmol/L [place] CO2 [Moles/Vol] 23 mmol/L 22 - 30 mmol/L [place] Creatinine [Mass/Vol] 0.75 mg/dL 0.52 - 1.25 mg/dL [place] EGFR IF NonAfrican [place]an >90.0 >60 mL/min [place] Comment on above: KDIGO guidelines pro [...] MDRD (S/P/Bld) [Vol rate/Area] mL/min/{1.73_m2} >60 mL/min [place] Glucose [Mass/Vol] 522 mg/dL Critically high 70 - 1 00 mg/dL [place] Potassium [Moles/Vol] 5.5 mmol/L High 3.5 - 5.1 mmol/L [place] Sodium [Moles/Vol] 134 mmol/L Low 135 - 145 mmol/L [place], [place] Urea nitrogen [Mass/Vol] 20 mg/dL 7 - 20 mg/dL [place] COVID-19, Rapidon 11-22-2020 Sodium [Moles/Vol] see below [place], [place] Comment on above: Not Detected Expected Result: Not Detected _ Isothermal nucleic acid amplification performed on the [employer] ID Now System by the [facility] Negative results do not preclude SARS-CoV-2 infection and should not be used as the sole basis for treatment or other patient management decisions. This assay was developed by [employer] and distributed under an Emergency Use Authorization (EUA) granted by the FDA for the qualitative detection of SARS-CoV-2 nucleic acid. Provider and patient fact sheets can be found at https://www.fda.gov/media/323364/download and https://www.fda.gov/media/363973/download. Test Performed by [facility], [address] [place] [address] ORDER WAS CANCELLED 11/22/20 20:20, wrong test code. [place] Abdomen Pelvis W Contrast on 11-22-2020 [facility] Incoming Radiology Results From [facility] - 11/22/2020 7:44 PM EST Patient Name: WILL JACINTO Computed Tomography ACCESSION EXAM DATE/TIME PROCEDURE ORDERING PROVIDER [id number] 11/22/2020 19:[address] Abdomen/Pelvis w/ [place] [id number] -JOEL NELSON Contrast (IV Onl CPT code 50275 Q9967 Reason For Exam (CT Abdomen/Pelvis w/ [...] KEVIN Transcribed Date and Time: 11/22/2020 7:44 [place] Patient Name: WILL ALVARADO Computed Tomography ACCESSION EXAM DATE/TIME PROCEDURE ORDERING PROVIDER [id number] 11/22/2020 19:[address] Abdomen/Pelvis w/ IV [id number] -JOEL NELSON Contrast (IV Onl CPT code 09689 Q9967 Reason For Exam (CT Abdomen/Pelvis w/ [...] KEVIN Transcribed Date and Time: 11/22/2020 7:44 [place], [place] Hemogram (CBC) w/Auto Diffon 11-22-2020 Absolute Baso # 0.0 10*3/uL 0 - 0.2 10*3/uL [place] Absolute Neut # 8.1 10*3/uL High 1.8 - 7 10*3/uL [place] Basophils/100 WBC (Bld) 0.5 % 0 - 2 % [place] Eosinophils (Bld) [#/Vol] 0.0 10*3/uL 0 - 0.5 10*3/uL [place], [place] Eosinophils/100 WBC (Bld) 0.3 % Low 1 - 6 % [place] Erythrocyte distribution width (RBC) [Ratio] 16.1 % High 11.5 - 14.5 % [place] Granulocytes/100 WBC (Bld) 84.9 % High 40 - 80 % [place] Hematocrit (Bld) [Volume fraction] 36.1 % 35 - 47 % [place] Hemoglobin (Bld) [Mass/Vol] 12.0 g/dL 11.7 - 16 g/dL [place] Interpretation and review of laboratory results Abnormal [place] Lymphocytes (Bld) [#/Vol] 0.9 10*3/uL Low 1 - 4.3 10*3/uL [place], [place] Lymphocytes/100 WBC (Bld) 9.4 % Low 20 - 40 % [place] MCH (RBC) [Entitic mass] 29.0 pg 26 - 34 pg [place] MCHC (RBC) [Mass/Vol] 33.3 % 32 - 36 % [place] MCV (RBC) [Entitic vol] 87.2 fL 79 - 98 fL [place], [place] Monocytes (Bld) [#/Vol] 0.5 10*3/uL 0 - 0.8 10*3/uL [place], [place] Monocytes/100 WBC (Bld) 4.9 % 2 - 10 % [place] Platelet mean volume (Bld) [Entitic vol] 8.1 fL 7.4 - 10.4 fL [place] Platelets (Bld) [#/Vol] 404 10*3/uL 140 - 440 10*3/uL [place] RBC (Bld) [#/Vol] 4.15 10*6/uL 3.8 - 5.2 10*6/uL [place] WBC (Bld) [#/Vol] 9.6 10*3/uL 3.6 - 10.7 10*3/uL [place] Test Performed by [facility], [address], [place], [place] [address] [place] Hepatic Function Panelon Albumin [Mass/Vol] 4.2 g/dL 3.5 - 5 g/dL [place] ALP [Catalytic activity/Vol] 181 U/L High 38 - 126 U/L [place], [place] ALT [Catalytic activity/Vol] 44 U/L High 0 - 34 U/L [place], [place] Comment on above: The ALT test is perf ormed by an updated assay method. Please note that the reference intervals have been changed and are now sex specific. AST [Catalytic activity/Vol] 30 U/L 15 - 46 U/L [place], [place] Bilirubin Ql (U) 0.6 mg/dL 0.2 - 1.3 mg/dL [place] Bilirubin.direct [Mass/Vol] 0.0 mg/dL 0 - 0.3 mg/dL [place], [place] Protein [Mass/Vol] 7.4 g/dL 6.3 - 8.2 g/dL [place], [place] Otheron 11-22-2020 Interpretation and review of laboratory results Abnormal [place] Test Performed by [facility], [address], [place], [place] [id number] [place] [address] POCT GLUCOSEon 11-22-2020 Glucose [Mass/Vol] 470 mg/dL [place], [place] Interpretation and review of laboratory results Normal [place], [place] QC OK? yes [place] Troponin x1on 11-22-2020 Troponin I.cardiac [Mass/Vol] ng/mL 0 - 0.034 ng/mL [place], [place] Comment on above: . Test Performed by [facility], [address], [place], [place] [id number] [place] [address] Urinalysison 11-22-2020 Appearance (U) Turbid Abnormal Clear NA [place], [place] Comment on above: . Bilirubin Urine Negative Negative mg/dL [place] Comment on above: . Color (U) Light-[place] Abnormal Lt. Yellow NA [place], [place] Comment on above: . Glucose, Ur >1,000 Abnormal Normal (<70) mg/dL [place], [place] Comment on above: . Interpretation and review of laboratory results Abnormal [place] Ketones Ql (U) 40 mg/dL Abnormal Negative [place], [place] Comment on above: . LEUKOCYTES, UA 75 Abnormal Negative Kat/uL [place], [place] Comment on above: . Nitrite, Urine Negative Negative NA [place] Comment on above: . Occult Blood,Urine >1.0 Abnormal Negative mg/dL [place], [place] Comment on above: . pH (U) 6.0 [pH] [place], [place] Comment on above: . Protein (U) [Mass/Vol] 10 mg/dL Abnormal Negative Me [place], [place] Comment on above: . RBC (U) [#/Vol] /uL Abnormal 0 - 2 /[HPF] [place], [place] Comment on above: . Specific [place], Urine 1.025 M [place] Comment on above: . Squam Epithel, UA 0-2 3 - 5 /[HPF] [place] Comment on above: . Urobilinogen, Urine Normal Normal (0-1) mg/dL [place], [place] Comment on above: . WBC, UA 0-2 0 - 5 /[HPF] [place] Comment on above: . Test Performed by [facility], [address] [place], [place], [place] [id number] [place] [address] XR CHEST PORTABLEon 11-22-19 21 [facility], [facility] Incoming Radiology Results From [facility] - 11/22/2020 6:33 PM EST Patient Name: WILL JACINTO Diagnostic Radiology ACCESSION EXAM DATE/TIME PROCEDURE ORDERING PROVIDER [id number] 11/22/2020 18:30 EST CR Chest Portable [id number] -OMARJOEL CPT code 49455 Reason For Exam (CR Chest Portable) SOB [...] B Transcribed Date and Time: 11/22/2020 6:33 [place] Patient Name: WILL ALVARADO Diagnostic Radiology ACCESSION EXAM DATE/TIME PROCEDURE ORDERING PROVIDER [id number] 11/22/2020 18:30 EST CR Chest Portable [id number] -JOEL NELSON CPT code 46858 Reason For Exam (CR Chest Portable) SOB [...] B Transcribed Date and Time: 11/22/2020 6:33 [facility] GASTRIC EMPTYINGon 2019 Robert, [facility] Incoming Radiology Results From [facility] - 09/30/2020 2:38 PM EST Patient Name: WILL JACINTO ---Nuc Med--- Exam Date/Time 09/30/2020 14:12:07 EST Exam NM Gastric Emptying Study Ordering Physician MD MUNIZ REYNALDO C. Accession Number [id number] CPT4 Codes 90854 () Reason For Exam nausea, diabetees Report [...] ANTHONY Transcribed Date and Time: 09/30/2020 2:38 [place] Patient Name: WILL ALVARADO ---Nuc Med--- Exam Date/Time 09/30/2020 14:12:07 EST Exam NM Gastric Emptying Study Ordering Physician MD FLAVIO, CHRIS Wallace Accession Number [id number] CPT4 Codes 65201 () Reason For Exam nausea, diabetees Report [...] ANTHONY Transcribed Date and Time: 09/30/2020 2:38 [place], [place] POC Glucose, Whole Bloodon 1 11-30-2019 Glucose [Mass/Vol] mg/dL High 70 - 100 mg/dL [place], [place] Comment on above: Test performed by gl ucose meter. Results may be 10%-15% lower than serum/plasma values. (CLIA ID [id number]) Interpretation and review of laboratory results Abnormal [place] Sodium [Moles/Vol] see below [place], [place] Comment on above: No confirmation rece ived. Test Performed by [facility], [address] [place], [place], [place] [address] [place], [place] POCT Glucoseon 09-30-2020 Glucose [Mass/Vol] 394 mg/dL High 70 - 100 mg/dL [place], [place] Comment on above: Test performed by gl ucose meter. Results may be 10%-15% lower than serum/plasma values. (CLIA ID [id number]) Interpretation and review of laboratory results Abnormal [facility] Test Performed by [facility], [address] [place], [place] [address] [facility] Glucose [Mass/Vol] 356 mg/dL High 70 - 100 mg/dL [facility] Comment on above: Test performed by gl ucose meter. Results may be 10%-15% lower than serum/plasma values. (CLIA ID [id number]) Interpretation and review of laboratory results Abnormal [facility] Test Performed by [facility], [address] [place], [place] [address] [facility] [place] Glucose [Mass/Vol] 257 mg/dL High 70 - 100 mg/dL [facility] [place] Comment on above: Test performed by gl ucose meter. Results may be 10%-15% lower than serum/plasma values. (CLIA ID [id number]) Interpretation and review of laboratory results Abnormal [facility] Test Performed by [facility], [address] [place] [facility] POCT Glucoseon 09-29-2020 Glucose [Mass/Vol] 209 mg/dL High 70 - 100 mg/dL [facility] Comment on above: Test performed by gl ucose meter. Results may be 10%-15% lower than serum/plasma values. (CLIA ID [id number]) Interpretation and review of laboratory results Abnormal [facility] Test Performed by [facility], [address] [place], [place] [address] [place] [address] [place] Glucose [Mass/Vol] 301 mg/dL High 70 - 100 mg/dL [facility] Comment on above: Test performed by gl ucose meter. Results may be 10%-15% lower than serum/plasma values. (CLIA ID [id number]) Interpretation and review of laboratory results Abnormal [facility] [place] Test Performed by [facility], [address] [place], [place] [address] [place], [place] [address] Glucose [Mass/Vol] 200 mg/dL High 70 - 100 mg/dL [facility] [place] Comment on above: Test performed by gl ucose meter. Results may be 10%-15% lower than serum/plasma values. (CLIA ID [id number]) Interpretation and review of laboratory results Abnormal [employer] Test Performed by [facility], [address] [place], [place] [address] [facility] [place] COVID-19on 09-28-2020 SARS-CoV-2 Not Detected Not Detected [facility] Comment on above: Not Detected Expected Result: Not Detected _ Real-time, RT-PCR performed on the [employer] System by the [facility] Microbiology Service Negative results do not preclude SARS-CoV-2 infection and should not be used as the sole basis for treatment or other patient management decisions. This assay was developed by [employer] and distributed under an Emergency Use Authorization (EUA) granted by the FDA for the qualitative detection of SARS-CoV-2 nucleic acid. Provider and patient fact sheets can be found at https://www.fda.gov/media/231687/download and https://www.fda.gov/media/790645/download. [facility] by [facility], [address] [place] [address] Specimen Source Comment:Nasopharyngeal Swab [facility] [place] POCT Glucoseon 09-28-2020 Glucose [Mass/Vol] 346 mg/dL High 70 - 100 mg/dL [facility] Comment on above: Test performed by gl ucose meter. Results may be 10%-15% lower than serum/plasma values. (CLIA ID [id number]) Interpretation and review of laboratory results Abnormal [employer] Test Performed by [facility], [address] [place], [place] [address] [facility] [place] Glucose [Mass/Vol] 385 mg/dL High 70 - 100 mg/dL [facility] Comment on above: Test performed by gl ucose meter. Results may be 10%-15% lower than serum/plasma values. (CLIA ID [id number]) Interpretation and review of laboratory results Abnormal [employer] Test Performed by [facility], [address] [place], [place] [address] [facility] [place] Glucose [Mass/Vol] 393 mg/dL High 70 - 100 mg/dL [facility] [place] Comment on above: Test performed by gl ucose meter. Results may be 10%-15% lower than serum/plasma values. (CLIA ID [id number]) Interpretation and review of laboratory results Abnormal [facility] [place] Test Performed by [facility], [address] [place], [place] [address] [facility] Glucose [Mass/Vol] 322 mg/dL High 70 - 100 mg/dL [facility] [place] Comment on above: Test performed by gl ucose meter. Results may be 10%-15% lower than serum/plasma values. (CLIA ID [id number]) Interpretation and review of laboratory results Abnormal [facility] Test Performed by [facility], [address] [place], [place] [address] [facility] Glucose [Mass/Vol] 325 mg/dL High 70 - 100 mg/dL [facility] [place] Comment on above: Test performed by gl ucose meter. Results may be 10%-15% lower than serum/plasma values. (CLIA ID [id number]) Interpretation and review of laboratory results Abnormal [facility] [place] Test Performed by [facility], [address] [place] [address] [facility] [place] Glucose [Mass/Vol] 230 mg/dL High 70 - 100 mg/dL [facility] [place] Comment on above: Test performed by gl ucose meter. Results may be 10%-15% lower than serum/plasma values. (CLIA ID [id number]) Interpretation and review of laboratory results Abnormal [facility] Test Performed by [facility], [address] [place], [place] [address] [facility] Glucose [Mass/Vol] 233 mg/dL High 70 - 100 mg/dL [facility] [place] Comment on above: Test performed by gl ucose meter. Results may be 10%-15% lower than serum/plasma values. (CLIA ID [id number]) Interpretation and review of laboratory results Abnormal [facility] [place] Test Performed by [facility], [address] [place], [place] [address] [facility] [place] POCT Glucoseon 11-20-2020 Glucose [Mass/Vol] 248 mg/dL High 70 - 100 mg/dL [facility] Comment on above: Test performed by gl ucose meter. Results may be 10%-15% lower than serum/plasma values. (CLIA ID [id number]) Interpretation and review of laboratory results Abnormal [facility] [place] Test Performed by [facility], [address], [place], [place] [id number] [place] [address] [facility] Glucose [Mass/Vol] 275 mg/dL High 70 - 100 mg/dL [facility] [place] Comment on above: Test performed by gl ucose meter. Results may be 10%-15% lower than serum/plasma values. (CLIA ID [id number]) Interpretation and review of laboratory results Abnormal [facility] [place] Test Performed by [facility], [address], [address], [place] Glucose [Mass/Vol] 312 mg/dL High 70 - 100 mg/dL [facility], [place] Comment on above: Test performed by gl ucose meter. Results may be 10%-15% lower than serum/plasma values. (CLIA ID [id number]) Interpretation and review of laboratory results Abnormal [place], [place] Test Performed by [facility], [address], [address] [facility], [place] Glucose [Mass/Vol] 151 mg/dL High 70 - 100 mg/dL [facility], [place] Comment on above: Test performed by gl ucose meter. Results may be 10%-15% lower than serum/plasma values. (CLIA ID [id number]) Interpretation and review of laboratory results Abnormal [place] Test Performed by [facility], [address] [place], [place] [id number] [place] [address] [employer] [place], [place] CBC Auto Differentialon 09-08 Absolute Baso # 0.1 10*3/uL 0 - 0.2 10*3/uL [facility] [employer] [place] Absolute Neut # 7.0 10*3/uL 1.8 - 7 10*3/uL [facility] [employer] [place] Basophils/100 WBC (Bld) 1.0 % 0 - 2 % [place], [place] Eosinophils (Bld) [#/Vol] 0.1 10*3/uL 0 - 0.5 10*3/uL [place], [place] Eosinophils/100 WBC (Bld) 1.2 % 1 - 6 % [place] Erythrocyte distribution width (RBC) [Ratio] 15.5 % High 11.5 - 14.5 % [place], [place] Granulocytes/100 WBC (Bld) 71.3 % 40 - 80 % [place] Hematocrit (Bld) [Volume fraction] 38.5 % 35 - 47 % [place] Hemoglobin (Bld) [Mass/Vol] 12.6 g/dL 11.7 - 16 g/dL [place], [place] Interpretation and review of laboratory results Abnormal [place], [place] Lymphocytes (Bld) [#/Vol] 1.6 10*3/uL 1 - 4.3 10*3/uL [place], [place] Lymphocytes/100 WBC (Bld) 16.1 % Low 20 - 40 % [place] MCH (RBC) [Entitic mass] 28.5 pg 26 - 34 pg [place] MCHC (RBC) [Mass/Vol] 32.7 % 32 - 36 % [place] MCV (RBC) [Entitic vol] 87.2 fL 79 - 98 fL [place], [place] Monocytes (Bld) [#/Vol] 1.0 10*3/uL High 0 - 0.8 10*3/uL [place], [place] Monocytes/100 WBC (Bld) 10.4 % High 2 - 10 % [place] Platelet mean volume (Bld) [Entitic vol] 8.1 fL 7.4 - 10.4 fL [place], [place] Platelets (Bld) [#/Vol] 508 10*3/uL High 140 - 440 10*3/uL [place], [place] RBC (Bld) [#/Vol] 4.41 10*6/uL 3.8 - 5.2 10*6/uL [place] WBC (Bld) [#/Vol] 9.8 10*3/uL 3.6 - 10.7 10*3/uL [place], [place] Test Performed by [facility], [address], [place], [place] [address] [place], [place] Comprehensive Metabolic Pane gigi 09-26-2020 Albumin [Mass/Vol] 4.0 g/dL 3.5 - 5 g/dL [place] ALP [Catalytic activity/Vol] 120 U/L 38 - 126 U/L [place] ALT [Catalytic activity/Vol] 127 U/L High 0 - 34 U/L [place], [place] Comment on above: The ALT test is perf ormed by an updated assay method. Please note that the reference intervals have been changed and are now sex specific. Anion gap [Moles/Vol] 12 mmol/L [place] AST [Catalytic activity/Vol] 64 U/L High 15 - 46 U/L [place] Bilirubin Ql (U) 1.4 mg/dL High 0.2 - 1.3 mg/dL [place] Calcium [Mass/Vol] 8.9 mg/dL 8.4 - 10. 4 mg/dL [place], [place] Chloride [Moles/Vol] 97 mmol/L Low 98 - 10 7 mmol/L [place] CO2 [Moles/Vol] 24 mmol/L 22 - 30 mmol/L [place] Creatinine [Mass/Vol] 1.13 mg/dL 0.52 - 1.25 mg/dL [place], [place] EGFR IF NonAfrican [place] 55.1 mL/min Abnormal >60 [place] Comment on above: KDIGO guidelines pro [...] MDRD (S/P/Bld) [Vol rate/Area] 63.8 mL/min/{1.73_m2} >60 [facility] Glucose [Mass/Vol] 207 mg/dL High 70 - 100 mg/dL [facility], [place] Interpretation and review of laboratory results Abnormal [facility], [place] Potassium [Moles/Vol] 4.8 mmol/L 3.5 - 5.1 mmol/L [facility] [employer] [place] Protein [Mass/Vol] 7.7 g/dL 6.3 - 8.2 g/dL [place], [place] Sodium [Moles/Vol] 133 mmol/L Low 135 - 145 mmol/L [place] Urea nitrogen [Mass/Vol] 32 mg/dL High 7 - 20 mg/dL [facility] [place] Test Performed by [facility], [address] [place], [place] [address] [place] [address] POCT Glucoseon 09-26-2020 Glucose [Mass/Vol] 124 mg/dL High 70 - 100 mg/dL [place], [place] Comment on above: Test performed by [employer] ucose meter. Results may be 10%-15% lower than serum/plasma values. (CLIA ID [id number]) Interpretation and review of laboratory results Abnormal [facility] [employer] Test Performed by [employer] [facility], [address] [place], [place] [address] [place] Glucose [Mass/Vol] 225 mg/dL High 70 - 100 mg/dL [place] Comment on above: Test performed by gl ucose meter. Results may be 10%-15% lower than serum/plasma values. (CLIA ID [id number]) Interpretation and review of laboratory results Abnormal [place] Test Performed by [employer] [facility], [address], [place], [place] [address] [facility], [employer] Glucose [Mass/Vol] 308 mg/dL High 70 - 100 mg/dL [facility] Comment on above: Test performed by gl ucose meter. Results may be 10%-15% lower than serum/plasma values. (CLIA ID [id number]) Interpretation and review of laboratory results Abnormal [facility] Test Performed by [facility], [address], [place], [place] [address] [facility] Glucose [Mass/Vol] 259 mg/dL High 70 - 100 mg/dL [facility] [place] Comment on above: Test performed by gl ucose meter. Results may be 10%-15% lower than serum/plasma values. (CLIA ID [id number]) Interpretation and review of laboratory results Abnormal [facility] Test Performed by [facility], [address], [place] [address] [facility] [place] Glucose [Mass/Vol] 223 mg/dL High 70 - 100 mg/dL [facility] [place] Comment on above: Test performed by gl ucose meter. Results may be 10%-15% lower than serum/plasma values. (CLIA ID [id number]) Interpretation and review of laboratory results Abnormal [facility] Test Performed by [facility], [address] [place], [place], [place] [address] [facility] ECHO Complete 2D W Doppler W Coloron 09-25-2020 [facility], [facility] Incoming Cardiology Results From [facility] - 09/25/2020 4:03 PM EST TRANSTHORACIC ECHOCARDIOGRAM PATIENT: Will Jacinto STUDY DATE: 09/25/2020 : 1965 AGE: 54 HT/WT: 167.6 cm (66 155.9 kg in) (343 lb) GENDER: F BP: 130 / 87 LOCATION: [facility] PATIENT Inpatient [facility] STATUS: *ORDERING PHYSICIAN: * Priyank Rios MD *READING PHYSICIAN: * Ga Davenport MD *BARN HAND: * Jayda Richardson INDICATIONS: SVT. CONCLUSIONS SUMMARY: [...] Ga Davenport MD 09/25/2020 16:02 Prior Signatures: [facility] TRANSTHORACIC ECHOCARDIOGRAM PATIENT: Will Jacinto STUDY DATE: 09/25/2020 : 1965 AGE: 54 HT/WT: 167.6 cm (66 155.9 kg in) (343 lb) GENDER: F BP: 130 / 87 LOCATION: [facility] PATIENT Inpatient [facility] STATUS: *ORDERING PHYSICIAN: * Priyank Rios MD *READING PHYSICIAN: * Ga Davenport MD *BARN HAND: * Jayda Richardson INDICATIONS: SVT. CONCLUSIONS SUMMARY: [...] Ga Davenport MD 09/25/2020 16:02 Prior Signatures: [facility] POCT Glucoseon 09-25-2020 Glucose [Mass/Vol] 126 mg/dL High 70 - 100 mg/dL [facility] Comment on above: Test performed by [employer] ucose meter. Results may be 10%-15% lower than serum/plasma values. (CLIA ID [id number]) Interpretation and review of laboratory results Abnormal [facility] Test Performed by [employer], [address] [place] [address] [facility] Glucose [Mass/Vol] 124 mg/dL High 70 - 100 mg/dL [facility] Comment on above: Test performed by [employer] ucose meter. Results may be 10%-15% lower than serum/plasma values. (CLIA ID [id number]) Interpretation and review of laboratory results Abnormal [facility] Test Performed by [employer], [address] [place] [address] [facility] Glucose [Mass/Vol] 173 mg/dL High 70 - 100 mg/dL [facility] Comment on above: Test performed by [employer] ucose meter. Results may be 10%-15% lower than serum/plasma values. (CLIA ID [id number]) Interpretation and review of laboratory results Abnormal [facility] Test Performed by [employer], [address], [place], [place] [address] [place] [address] Glucose [Mass/Vol] 121 mg/dL High 70 - 100 mg/dL [place], [place] Comment on above: Test performed by gl ucose meter. Results may be 10%-15% lower than serum/plasma values. (CLIA ID [id number]) Interpretation and review of laboratory results Abnormal [place] Test Performed by [facility], [address] [place], [place] [id number] [place] [address] XR ABDOMEN (KUB) (SINGLE AP VIEW)on 09-25-2020 [facility] Incoming Radiology Results From [facility] - 09/25/2020 3:10 PM EST Patient Name: WILL JACINTO ---Diagnostic Radiology--- Exam Date/Time 09/25/2020 14:00:36 EST Exam CR Abdomen AP Ordering Physician DO HILL LISA Accession Number [id number] CPT4 Codes 75647 () Reason For Exam ileus Report CLINICAL [...] HARLAN Transcribed Date and Time: 09/25/2020 3:09 [place] Patient Name: WILL ALVARADO ---Diagnostic Radiology--- Exam Date/Time 09/25/2020 14:00:36 EST Exam CR Abdomen AP Ordering Physician DO HILL LISA Accession Number [id number] CPT4 Codes 91054 () Reason For Exam ileus Report CLINICAL [...] HARLAN Transcribed Date and Time: 09/25/2020 3:09 [place], [place] CBC Auto Differentialon 09-08 Absolute Baso # 0.0 10*3/uL 0 - 0.2 10*3/uL [place], [place] Absolute Neut # 5.3 10*3/uL 1.8 - 7 10*3/uL [place], [place] Basophils/100 WBC (Bld) 0.4 % 0 - 2 % [place] Eosinophils (Bld) [#/Vol] 0.1 10*3/uL 0 - 0.5 10*3/uL [place], [place] Eosinophils/100 WBC (Bld) 1.6 % 1 - 6 % [place] Erythrocyte distribution width (RBC) [Ratio] 15.8 % High 11.5 - 14.5 % [place], [place] Granulocytes/100 WBC (Bld) 74.9 % 40 - 80 % [place] Hematocrit (Bld) [Volume fraction] 59.6 % High 35 - 47 % [place] Hemoglobin (Bld) [Mass/Vol] 19.3 g/dL High 11.7 - 16 g/dL [place], [place] Interpretation and review of laboratory results Abnormal [place], [place] Lymphocytes (Bld) [#/Vol] 1.0 10*3/uL 1 - 4.3 10*3/uL [place], [place] Lymphocytes/100 WBC (Bld) 14.1 % Low 20 - 40 % [place] MCH (RBC) [Entitic mass] 28.3 pg 26 - 34 pg [place] MCHC (RBC) [Mass/Vol] 32.4 % 32 - 36 % [place] MCV (RBC) [Entitic vol] 87.2 fL 79 - 98 fL [place], [place] Monocytes (Bld) [#/Vol] 0.6 10*3/uL 0 - 0.8 10*3/uL [place], [place] Monocytes/100 WBC (Bld) 9.0 % 2 - 10 % [place], [place] Platelet mean volume (Bld) [Entitic vol] 7.5 fL 7.4 - 10.4 fL [place], [place] Platelets (Bld) [#/Vol] 215 10*3/uL 140 - 440 10*3/uL [place] RBC (Bld) [#/Vol] 6.83 10*6/uL High 3.8 - 5.2 10*6/uL [place], [place] WBC (Bld) [#/Vol] 7.1 10*3/uL 3.6 - 10.7 10*3/uL [place] Test Performed by [facility], [address] [place], [place] [address] [place] Comprehensive Metabolic Pane gigi 09-24-2020 Albumin [Mass/Vol] 3.6 g/dL 3.5 - 5 g/dL [place] ALP [Catalytic activity/Vol] 116 U/L 38 - 126 U/L [place] ALT [Catalytic activity/Vol] 113 U/L High 0 - 34 U/L [place] Comment on above: The ALT test is perf ormed by an updated assay method. Please note that the reference intervals have been changed and are now sex specific. Anion gap [Moles/Vol] 8 mmol/L [place] AST [Catalytic activity/Vol] 53 U/L High 15 - 46 U/L [place], [place] Bilirubin Ql (U) 0.9 mg/dL 0.2 - 1.3 mg/dL [place] Calcium [Mass/Vol] 8.7 mg/dL 8.4 - 10. 4 mg/dL [place] Chloride [Moles/Vol] 99 mmol/L 98 - 10 7 mmol/L [place] CO2 [Moles/Vol] 27 mmol/L 22 - 30 mmol/L [place] Creatinine [Mass/Vol] 1.97 mg/dL High 0.52 - 1.25 mg/dL [place], [place] EGFR IF NonAfrican [place] 28.1 mL/min Abnormal >60 [place], [place] Comment on above: KDIGO guidelines pro [...] (S/P/Bld) [Vol rate/Area] 32.6 mL/min/{1.73_m2} Abnormal >60 [place], [place] Glucose [Mass/Vol] 110 mg/dL High 70 - 100 mg/dL [place] Interpretation and review of laboratory results Abnormal [place] Potassium [Moles/Vol] 3.7 mmol/L 3.5 - 5.1 mmol/L [place] Protein [Mass/Vol] 6.7 g/dL 6.3 - 8.2 g/dL [place], [place] Sodium [Moles/Vol] 133 mmol/L Low 135 - 145 mmol/L [place], [place] Urea nitrogen [Mass/Vol] 29 mg/dL High 7 - 20 mg/dL [place] Test Performed by [facility], [address] [place], [place] [id number] [place] [address] MAGNESIUMon 09-24-2020 Magnesium [Mass/Vol] 1.7 mg/dL 1.6 - 2 .3 mg/dL [place] Test Performed by [facility], [address] [place] POCT Glucoseon 09-24-2020 Glucose [Mass/Vol] 119 mg/dL High 70 - 100 mg/dL [place], [place] Comment on above: Test performed by gl ucose meter. Results may be 10%-15% lower than serum/plasma values. (CLIA ID [id number]) Interpretation and review of laboratory results Abnormal [facility] [employer] [facility] [place] Test Performed by [facility], [address] [place] [place] Glucose [Mass/Vol] 187 mg/dL High 70 - 100 mg/dL [place], [place] Comment on above: Test performed by gl ucose meter. Results may be 10%-15% lower than serum/plasma values. (CLIA ID [id number]) Interpretation and review of laboratory results Abnormal [facility] [employer] [place], [place] Test Performed by [facility], [address] [place] Glucose [Mass/Vol] 237 mg/dL High 70 - 100 mg/dL [place], [place] Comment on above: Test performed by gl ucose meter. Results may be 10%-15% lower than serum/plasma values. (CLIA ID [id number]) Interpretation and review of laboratory results Abnormal [facility] [employer] [place], [place] Test Performed by [facility], [address] [place] Glucose [Mass/Vol] 119 mg/dL High 70 - 100 mg/dL [place], [place] Comment on above: Test performed by gl ucose meter. Results may be 10%-15% lower than serum/plasma values. (CLIA ID [id number]) Interpretation and review of laboratory results Abnormal [place] Test Performed by [facility], [address] [place], [place], [place] [address] [place], [place] Surgical Pathologyon 020 Sodium [Moles/Vol] SEE BELOW [place], [place] 1 [id number] [facility] PATHOLOGY AND LABORATORY MEDICINE [address] [place] [address] Fax - FINAL SURGICAL PATHOLOGY REPORT NAME: WILL JACINTO : 1965 54 Y F [facility] [id number] LOCATION: [facility] 260 1 PROCEDURE 09/19/2020 DATE: [...] characteristics determined by the clinical laboratories of [facility]. They have not been cleared by [...] negativity on decalcified specimens. Case reviewed at [place] [address] [place] [address]. DEPARTMENT OF PATHOLOGY AND LABORATORY MEDICINE [place], [place] [address] [place], [place] Troponinon 09-24-2020 Troponin I.cardiac [Mass/Vol] ng/mL 0 - 0.034 ng/mL [place], [place] Comment on above: . Test Performed by [facility], [address] [place], [place] [address] Chemistry specimen is slightly hemolyzed. Interpret results with caution. [place] XR ABDOMEN (KUB) (SINGLE AP VIEW)on 09-24-2020 [facility] Incoming Radiology Results From [facility] - 09/24/2020 9:24 AM EST Patient Name: WILL JACINTO ---Diagnostic Radiology--- Exam Date/Time 09/24/2020 09:15:19 EST Exam CR Abdomen AP Ordering Physician DO HILL LISA Accession Number [id number] CPT4 Codes 74329 () Reason For Exam ileus Report Abdomen [...] lateral decubitus views. Report Dictated on Workstation: [facility] --- Final --- Dictating Physician: MD UNDERWOOD BRIAN Signed Date and Time: 09/24/2020 9:22 am Signed by: MD UNDERWOOD BRIAN Transcribed Date and Time: 09/24/2020 9:23 [place], [place] Patient Name: WILL ALVARADO ---Diagnostic Radiology--- Exam Date/Time 09/24/2020 09:15:19 EST Exam CR Abdomen AP Ordering Physician DO HILL LISA Accession Number [id number] CPT4 Codes 37725 () Reason For Exam ileus Report Abdomen [...] lateral decubitus views. Report Dictated on Workstation: [facility] --- Final --- Dictating Physician: MD UNDERWOOD BRIAN Signed Date and Time: 09/24/2020 9:22 am Signed by: MD UNDERWOOD BRIAN Transcribed Date and Time: 09/24/2020 9:23 [place], [place] CBC Auto Differentialon - Absolute Baso # 0.1 10*3/uL 0 - 0.2 10*3/uL [place], [place] Absolute Neut # 8.9 10*3/uL High 1.8 - 7 10*3/uL [place], [place] Basophils/100 WBC (Bld) 0.7 % 0 - 2 % [place], [place] Eosinophils (Bld) [#/Vol] 0.1 10*3/uL 0 - 0.5 10*3/uL [place], [place] Eosinophils/100 WBC (Bld) 1.1 % 1 - 6 % [place] Erythrocyte distribution width (RBC) [Ratio] 15.2 % High 11.5 - 14.5 % [place] Granulocytes/100 WBC (Bld) 73.0 % 40 - 80 % [place] Hematocrit (Bld) [Volume fraction] 35.4 % 35 - 47 % [place] Hemoglobin (Bld) [Mass/Vol] 11.8 g/dL 11.7 - 16 g/dL [place], [place] Interpretation and review of laboratory results Abnormal [place], [place] Lymphocytes (Bld) [#/Vol] 1.9 10*3/uL 1 - 4.3 10*3/uL [place], [place] Lymphocytes/100 WBC (Bld) 15.7 % Low 20 - 40 % [place] MCH (RBC) [Entitic mass] 29.0 pg 26 - 34 pg [place] MCHC (RBC) [Mass/Vol] 33.4 % 32 - 36 % [place] MCV (RBC) [Entitic vol] 86.8 fL 79 - 98 fL [place], [place] Monocytes (Bld) [#/Vol] 1.2 10*3/uL High 0 - 0.8 10*3/uL [place], [place] Monocytes/100 WBC (Bld) 9.5 % 2 - 10 % [place] Platelet mean volume (Bld) [Entitic vol] 7.3 fL Low 7.4 - 10.4 fL [place], [place] Platelets (Bld) [#/Vol] 454 10*3/uL High 140 - 440 10*3/uL [place] RBC (Bld) [#/Vol] 4.08 10*6/uL 3.8 - 5.2 10*6/uL [place] WBC (Bld) [#/Vol] 12.1 10*3/uL High 3.6 - 10.7 10*3/uL [place] Test Performed by [facility], [address], [place] [address] [place], [place] Comprehensive Metabolic Pane gigi 09-23-2020 Albumin [Mass/Vol] 3.7 g/dL 3.5 - 5 g/dL [place], [place] ALP [Catalytic activity/Vol] 150 U/L High 38 - 126 U/L [place] ALT [Catalytic activity/Vol] 126 U/L High 0 - 34 U/L [place], [place] Comment on above: The ALT test is perf ormed by an updated assay method. Please note that the reference intervals have been changed and are now sex specific. Anion gap [Moles/Vol] 10 mmol/L [place] AST [Catalytic activity/Vol] 42 U/L 15 - 46 U/L [place] Bilirubin Ql (U) 0.9 mg/dL 0.2 - 1.3 mg/dL [place] Calcium [Mass/Vol] 8.6 mg/dL 8.4 - 10. 4 mg/dL [place], [place] Chloride [Moles/Vol] 93 mmol/L Low 98 - 10 7 mmol/L [place] CO2 [Moles/Vol] 24 mmol/L 22 - 30 mmol/L [place] Creatinine [Mass/Vol] 1.05 mg/dL 0.52 - 1.25 mg/dL [place], [place] EGFR IF NonAfrican [place] 60.2 mL/min >60 [place] Comment on above: KDIGO guidelines pro [...] MDRD (S/P/Bld) [Vol rate/Area] 69.8 mL/min/{1.73_m2} >60 [place], [place] Glucose [Mass/Vol] 242 mg/dL High 70 - 100 mg/dL [place] Interpretation and review of laboratory results Abnormal [place], [place] Potassium [Moles/Vol] 3.9 mmol/L 3.5 - 5.1 mmol/L [place] Protein [Mass/Vol] 7.2 g/dL 6.3 - 8.2 g/dL [place], [place] Sodium [Moles/Vol] 127 mmol/L Low 135 - 145 mmol/L [place], [place] Urea nitrogen [Mass/Vol] 26 mg/dL High 7 - 20 mg/dL [place] Test Performed by [facility], [address] POC Glucose, Whole Bloodon 1 11-23-2019 Glucose [Mass/Vol] mg/dL High 70 - 100 mg/dL [place], [place] Comment on above: Test performed by gl ucose meter. Results may be 10%-15% lower than serum/plasma values. (CLIA ID [id number]) Interpretation and review of laboratory results Abnormal [place], [place] Sodium [Moles/Vol] see below [place], [place] Comment on above: No confirmation rece ived. Test Performed by [facility], [address] [place], [place] [id number] [place] [address] POCT Glucoseon 09-23-2020 Glucose [Mass/Vol] 171 mg/dL High 70 - 100 mg/dL [place], [place] Comment on above: Test performed by gl ucose meter. Results may be 10%-15% lower than serum/plasma values. (CLIA ID [id number]) Interpretation and review of laboratory results Abnormal [place] Test Performed by [facility], [address] [place] [address] [facility] [place] Glucose [Mass/Vol] 278 mg/dL High 70 - 100 mg/dL [facility] [place] Comment on above: Test performed by gl ucose meter. Results may be 10%-15% lower than serum/plasma values. (CLIA ID [id number]) Interpretation and review of laboratory results Abnormal [facility] [place] Test Performed by [facility], [address], [place], [place] [address] [facility] [place] Glucose [Mass/Vol] 401 mg/dL High 70 - 100 mg/dL [facility] [place] Comment on above: Test performed by gl ucose meter. Results may be 10%-15% lower than serum/plasma values. (CLIA ID [id number]) Interpretation and review of laboratory results Abnormal [facility] [place] Test Performed by [facility], [address], [place], [place] [address] [facility] Glucose [Mass/Vol] 348 mg/dL High 70 - 100 mg/dL [facility] [place] Comment on above: Test performed by gl ucose meter. Results may be 10%-15% lower than serum/plasma values. (CLIA ID [id number]) Interpretation and review of laboratory results Abnormal [facility] [place] Test Performed by [employer], [address], [place], [place] [address] [facility] [place] Glucose [Mass/Vol] 231 mg/dL High 70 - 100 mg/dL [facility] [place] Comment on above: Test performed by gl ucose meter. Results may be 10%-15% lower than serum/plasma values. (CLIA ID [id number]) Interpretation and review of laboratory results Abnormal [facility] [place] Test Performed by [facility], [address], [place], [place] [address] [facility] XR ABDOMEN (KUB) (SINGLE AP VIEW)on 09-23-2020 [facility] Incoming Radiology Results From [facility] - 09/23/2020 11:02 AM EST Patient Name: WILL JACINTO ---Diagnostic Radiology--- Exam Date/Time 09/23/2020 10:26:17 EST Exam CR Abdomen AP Ordering Physician MD DAVID RICHARD H Accession Number [id number] CPT4 Codes 88850 () Reason For Exam ileus, improving Report [...] RISA Transcribed Date and Time: 09/23/2020 11:01 [place] Patient Name: WILL ALVARADO ---Diagnostic Radiology--- Exam Date/Time 09/23/2020 10:26:17 EST Exam CR Abdomen AP Ordering Physician MD DAVID RICHARD H Accession Number [id number] CPT4 Codes 70879 () Reason For Exam ileus, improving Report [...] RISA Transcribed Date and Time: 09/23/2020 11:01 [place] CBC Auto Differentialon 09-08 Absolute Baso # 0.1 10*3/uL 0 - 0.2 10*3/uL [place], [place] Absolute Neut # 6.8 10*3/uL 1.8 - 7 10*3/uL [place], [place] Basophils/100 WBC (Bld) 0.9 % 0 - 2 % [place] Eosinophils (Bld) [#/Vol] 0.2 10*3/uL 0 - 0.5 10*3/uL [place] Eosinophils/100 WBC (Bld) 1.9 % 1 - 6 % [place] Erythrocyte distribution width (RBC) [Ratio] 14.9 % High 11.5 - 14.5 % [place] Granulocytes/100 WBC (Bld) 69.3 % 40 - 80 % [place] Hematocrit (Bld) [Volume fraction] 35.1 % 35 - 47 % [place] Hemoglobin (Bld) [Mass/Vol] 11.8 g/dL 11.7 - 16 g/dL [place], [place] Interpretation and review of laboratory results Abnormal [place], [place] Lymphocytes (Bld) [#/Vol] 1.8 10*3/uL 1 - 4.3 10*3/uL [place], [place] Lymphocytes/100 WBC (Bld) 18.3 % Low 20 - 40 % [place] MCH (RBC) [Entitic mass] 29.0 pg 26 - 34 pg [place] MCHC (RBC) [Mass/Vol] 33.5 % 32 - 36 % [place] MCV (RBC) [Entitic vol] 86.4 fL 79 - 98 fL [place], [place] Monocytes (Bld) [#/Vol] 0.9 10*3/uL High 0 - 0.8 10*3/uL [place], [place] Monocytes/100 WBC (Bld) 9.6 % 2 - 10 % [place] Platelet mean volume (Bld) [Entitic vol] 7.3 fL Low 7.4 - 10.4 fL [place], [place] Platelets (Bld) [#/Vol] 474 10*3/uL High 140 - 440 10*3/uL [place] RBC (Bld) [#/Vol] 4.07 10*6/uL 3.8 - 5.2 10*6/uL [place] WBC (Bld) [#/Vol] 9.7 10*3/uL 3.6 - 10.7 10*3/uL [place] Test Performed by [facility], [address], [place] [address] [place], [place] Comprehensive Metabolic Pane gigi 09-22-2020 Albumin [Mass/Vol] 3.7 g/dL 3.5 - 5 g/dL [place] ALP [Catalytic activity/Vol] 125 U/L 38 - 126 U/L [place] ALT [Catalytic activity/Vol] 137 U/L High 0 - 34 U/L [place] Comment on above: The ALT test is perf ormed by an updated assay method. Please note that the reference intervals have been changed and are now sex specific. Anion gap [Moles/Vol] 5 mmol/L [place] AST [Catalytic activity/Vol] 51 U/L High 15 - 46 U/L [place] Bilirubin Ql (U) 0.7 mg/dL 0.2 - 1.3 mg/dL [place] Calcium [Mass/Vol] 9.0 mg/dL 8.4 - 10. 4 mg/dL [place] Chloride [Moles/Vol] 94 mmol/L Low 98 - 10 7 mmol/L [place] CO2 [Moles/Vol] 29 mmol/L 22 - 30 mmol/L [place] Creatinine [Mass/Vol] 0.88 mg/dL 0.52 - 1.25 mg/dL [place] EGFR IF NonAfrican [place] 74.5 mL/min >60 [place], [place] Comment on above: KDIGO guidelines pro [...] MDRD (S/P/Bld) [Vol rate/Area] 86.4 mL/min/{1.73_m2} >60 [place] Glucose [Mass/Vol] 269 mg/dL High 70 - 100 mg/dL [place] Interpretation and review of laboratory results Abnormal [place] Potassium [Moles/Vol] 4.1 mmol/L 3.5 - 5.1 mmol/L [place] Protein [Mass/Vol] 6.9 g/dL 6.3 - 8.2 g/dL [place] Sodium [Moles/Vol] 129 mmol/L Low 135 - 145 mmol/L [place], [place] Urea nitrogen [Mass/Vol] 21 mg/dL High 7 - 20 mg/dL [place] Test Performed by [facility], [address] [place], [place] [id number] [place] [address] POCT Glucoseon 09-22-2020 Glucose [Mass/Vol] 363 mg/dL High 70 - 100 mg/dL [place], [place] Comment on above: Test performed by gl ucose meter. Results may be 10%-15% lower than serum/plasma values. (CLIA ID [id number]) Interpretation and review of laboratory results Abnormal [place] Test Performed by [facility], [address] [place] [address] [place] Glucose [Mass/Vol] 355 mg/dL High 70 - 100 mg/dL [place], [place] Comment on above: Test performed by gl ucose meter. Results may be 10%-15% lower than serum/plasma values. (CLIA ID [id number]) Interpretation and review of laboratory results Abnormal [place] Test Performed by [facility], [address] [place], [place] [id number] [place] [address] Glucose [Mass/Vol] 328 mg/dL High 70 - 100 mg/dL [place] Comment on above: Test performed by gl ucose meter. Results may be 10%-15% lower than serum/plasma values. (CLIA ID [id number]) Interpretation and review of laboratory results Abnormal [facility] Test Performed by [facility], [address], [place], [place] [address] [facility] [place] Glucose [Mass/Vol] 277 mg/dL High 70 - 100 mg/dL [facility] [place] Comment on above: Test performed by gl ucose meter. Results may be 10%-15% lower than serum/plasma values. (CLIA ID [id number]) Interpretation and review of laboratory results Abnormal [facility] Test Performed by [employer], [address], [place], [place] [address] [facility] XR ABDOMEN (KUB) (SINGLE AP VIEW)on 09-22-2020 Patient Name: WILL ALVARADO ---Diagnostic Radiology--- Exam Date/Time 09/22/2020 07:41:53 EST Exam CR Abdomen AP Ordering Physician MD JOANN, KYLAH Accession Number [id number] CPT4 Codes 35254 () Reason For Exam ileus Report ABDOMEN: [...] RACHEL Transcribed Date and Time: 09/22/2020 8:32 [facility] Nati Jones Incoming Radiology Results From [facility] - 09/22/2020 8:33 AM EST Patient Name: WILL JACINTO ---Diagnostic Radiology--- Exam Date/Time 09/22/2020 07:41:53 EST Exam CR Abdomen AP Ordering Physician MD JOANN, KYLAH Garcia Accession Number [id number] CPT4 Codes 34364 () Reason For Exam ileus Report ABDOMEN: [...] RACHEL Transcribed Date and Time: 09/22/2020 8:32 [facility] GLUCOSEon 09-21-2020 Glucose [Mass/Vol] 461 mg/dL Critically high 70 - 1 00 mg/dL [facility] [employer] Interpretation and review of laboratory results Abnormal [place] Test Performed by [facility], [address] [place], [place] [address] [place], [place] [address] POCT Glucoseon 09-21-2020 Glucose [Mass/Vol] 446 mg/dL High 70 - 100 mg/dL [facility] [employer] Comment on above: Test performed by gl ucose meter. Results may be 10%-15% lower than serum/plasma values. (CLIA ID [id number]) Interpretation and review of laboratory results Abnormal [place] Test Performed by [facility], [address] [place], [place] [address] [employer] Glucose [Mass/Vol] 440 mg/dL High 70 - 100 mg/dL [facility] Comment on above: Test performed by gl ucose meter. Results may be 10%-15% lower than serum/plasma values. (CLIA ID [id number]) Interpretation and review of laboratory results Abnormal [place] Test Performed by [facility], [address] [place] [address] [facility] [employer] Glucose [Mass/Vol] 138 mg/dL High 70 - 100 mg/dL [place], [place] Comment on above: Test performed by gl ucose meter. Results may be 10%-15% lower than serum/plasma values. (CLIA ID [id number]) Interpretation and review of laboratory results Abnormal [place] Test Performed by [facility], [address], [place], [place] [address] [place] Basic Metabolic Panelon 11- Anion gap [Moles/Vol] 6 mmol/L [place] Calcium [Mass/Vol] 8.7 mg/dL 8.4 - 10. 4 mg/dL [place] Chloride [Moles/Vol] 101 mmol/L 98 - 10 7 mmol/L [place] CO2 [Moles/Vol] 27 mmol/L 22 - 30 mmol/L [place] Creatinine [Mass/Vol] 0.81 mg/dL 0.52 - 1.25 mg/dL [place] EGFR IF NonAfrican [place] 82.4 mL/min >60 [place] Comment on above: KDIGO guidelines pro [...] MDRD (S/P/Bld) [Vol rate/Area] mL/min/{1.73_m2} >60 mL/min [place] Glucose [Mass/Vol] 259 mg/dL High 70 - 100 mg/dL [facility] [place] [facility] [place] Interpretation and review of laboratory results Abnormal [facility], [place] Potassium [Moles/Vol] 4.5 mmol/L 3.5 - 5.1 mmol/L [facility], [place] Sodium [Moles/Vol] 134 mmol/L Low 135 - 145 mmol/L [place] Urea nitrogen [Mass/Vol] 22 mg/dL High 7 - 20 mg/dL [facility], [place] Test Performed by [facility], [address], [place], [place] [address] [place] POCT Glucoseon 09-20-2020 Glucose [Mass/Vol] 129 mg/dL High 70 - 100 mg/dL [place], [place] Comment on above: Test performed by gl ucose meter. Results may be 10%-15% lower than serum/plasma values. (CLIA ID [id number]) Interpretation and review of laboratory results Abnormal [facility], [place] Test Performed by [facility], [address], [place], [place] [id number] [place] [address] Glucose [Mass/Vol] 192 mg/dL High 70 - 100 mg/dL [place], [place] Comment on above: Test performed by gl ucose meter. Results may be 10%-15% lower than serum/plasma values. (CLIA ID [id number]) Interpretation and review of laboratory results Abnormal [facility], [place] Test Performed by [facility], [address], [place], [place] [id number] [place] [address] Glucose [Mass/Vol] 352 mg/dL High 70 - 100 mg/dL [place], [place] Comment on above: Test performed by gl ucose meter. Results may be 10%-15% lower than serum/plasma values. (CLIA ID [id number]) Interpretation and review of laboratory results Abnormal [facility], [place] Test Performed by [employer] [facility], [address], [place], [place] [address] [facility], [place] Glucose [Mass/Vol] 283 mg/dL High 70 - 100 mg/dL [facility], [place] Comment on above: Test performed by gl ucose meter. Results may be 10%-15% lower than serum/plasma values. (CLIA ID [id number]) Interpretation and review of laboratory results Abnormal [place] Test Performed by [facility], [address], [place], [place] [address] [place] XR ABDOMEN (KUB) (SINGLE AP VIEW)on 09-20-2020 [facility] Incoming Radiology Results From [facility] - 09/20/2020 10:48 AM EST Patient Name: WILL JACINTO ---Diagnostic Radiology--- Exam Date/Time 09/20/2020 08:59:00 EST Exam CR Abdomen AP Ordering Physician DO HILL LISA Accession Number [id number] CPT4 Codes 44324 () Reason For Exam ileus Report EXAMINATION: [...] NELSON Transcribed Date and Time: 09/20/2020 10:48 [place] Patient Name: WILL ALVARADO ---Diagnostic Radiology--- Exam Date/Time 09/20/2020 08:59:00 EST Exam CR Abdomen AP Ordering Physician DO HILL LISA Accession Number [id number] CPT4 Codes 58942 () Reason For Exam ileus Report EXAMINATION: [...] NELSON Transcribed Date and Time: 09/20/2020 10:48 [place] CBC Auto Differentialon 09-08 Erythrocyte distribution width (RBC) [Ratio] 15.3 % High 11.5 - 14.5 % [place] Hematocrit (Bld) [Volume fraction] 32.5 % Low 35 - 47 % [place] Hemoglobin (Bld) [Mass/Vol] 10.6 g/dL Low 11.7 - 16 g/dL [place] Interpretation and review of laboratory results Abnormal [place] MCH (RBC) [Entitic mass] 29.0 pg 26 - 34 pg [place] MCHC (RBC) [Mass/Vol] 32.7 % 32 - 36 % [place] MCV (RBC) [Entitic vol] 88.7 fL 79 - 98 fL [place] Platelet mean volume (Bld) [Entitic vol] 7.3 fL Low 7.4 - 10.4 fL [place] Platelets (Bld) [#/Vol] 519 10*3/uL High 140 - 440 10*3/uL [place] RBC (Bld) [#/Vol] 3.67 10*6/uL Low 3.8 - 5.2 10*6/uL [place] WBC (Bld) [#/Vol] 8.5 10*3/uL 3.6 - 10.7 10*3/uL [place] Test Performed by [facility], [address], [place], [place] [address] [place] Comprehensive Metabolic Pane gigi 09-19-2020 Albumin [Mass/Vol] 3.6 g/dL 3.5 - 5 g/dL [place] ALP [Catalytic activity/Vol] 128 U/L High 38 - 126 U/L [place] ALT [Catalytic activity/Vol] 125 U/L High 0 - 34 U/L [place] Comment on above: The ALT test is perf ormed by an updated assay method. Please note that the reference intervals have been changed and are now sex specific. Anion gap [Moles/Vol] 7 mmol/L [place] AST [Catalytic activity/Vol] 68 U/L High 15 - 46 U/L [place] Bilirubin Ql (U) 0.6 mg/dL 0.2 - 1.3 mg/dL [place] Calcium [Mass/Vol] 8.9 mg/dL 8.4 - 10. 4 mg/dL [place] Chloride [Moles/Vol] 99 mmol/L 98 - 10 7 mmol/L [place] CO2 [Moles/Vol] 25 mmol/L 22 - 30 mmol/L [place] Creatinine [Mass/Vol] 0.88 mg/dL 0.52 - 1.25 mg/dL [place] EGFR IF NonAfrican [place] 74.5 mL/min >60 [place] Comment on above: KDIGO guidelines pro [...] MDRD (S/P/Bld) [Vol rate/Area] 86.4 mL/min/{1.73_m2} >60 [place] Glucose [Mass/Vol] 395 mg/dL High 70 - 100 mg/dL [place] Interpretation and review of laboratory results Abnormal [facility] [place] Potassium [Moles/Vol] 5.8 mmol/L High 3.5 - 5.1 mmol/L [facility] [place] Protein [Mass/Vol] 7.2 g/dL 6.3 - 8.2 g/dL [facility] [place] Sodium [Moles/Vol] 131 mmol/L Low 135 - 145 mmol/L [facility] Urea nitrogen [Mass/Vol] 29 mg/dL High 7 - 20 mg/dL [facility] Test Performed by [facility], [address], [place], [place] [address] [facility] [place] Manual Differentialon 2019 Absolute Baso # 0.0 10*3/uL 0 - 0.2 10*3/uL [facility] [place] Absolute Eos # 0.1 10*3/uL 0 - 0.5 10*3/uL [facility] [place] Absolute Lymph # 0.9 10*3/uL Low 1.1 - 4.5 10*3/uL [facility] Absolute Metcalfe # 0.6 10*3/uL 0.2 - 1.1 10*3/uL [facility] Absolute Neut # 6.5 10*3/uL 2.2 - 8.2 10*3/uL [facility] Anisocytosis Ql (Bld) Slight [facility] Bands 1 % 0 - 3 % [facility] [place] Basophils 0 % 0 - 2 % [facility] [place] Eosinophils 1 % 1 - 6 % [facility] [place] Hypochromia Slight [facility] Interpretation and review of laboratory results Abnormal [facility] Lymphocytes 11 % Low 20 - 40 % [facility] [place] Metamyelocytes 4 % Abnormal <1 [facility] [place] Monocytes 7 % 2 - 10 % [facility] [place] Polychromasia Slight [facility] [place] RBC morphology finding Nom (Bld) ABNORMAL [facility] Seg Neutrophils 76 % 40 - 80 % [facility] TOTAL CELLS COUNTED 100 [facility] Test Performed by [facility], [address], [place], [place] [address] [facility] Otheron 09-19-2020 Interpretation and review of laboratory results Abnormal [employer] Test Performed by [facility], [address], [place] [address] [facility] [place] POCT Glucoseon 09-19-2020 Glucose [Mass/Vol] 286 mg/dL High 70 - 100 mg/dL [facility] Comment on above: Test performed by gl ucose meter. Results may be 10%-15% lower than serum/plasma values. (CLIA ID [id number]) Interpretation and review of laboratory results Abnormal [employer] Test Performed by [facility], [address], [place], [place] [address] [facility] Glucose [Mass/Vol] 395 mg/dL High 70 - 100 mg/dL [facility] Comment on above: Test performed by gl ucose meter. Results may be 10%-15% lower than serum/plasma values. (CLIA ID [id number]) Interpretation and review of laboratory results Abnormal [employer] Test Performed by [facility], [address], [place], [place] [address] [facility] [place] Glucose [Mass/Vol] 406 mg/dL High 70 - 100 mg/dL [facility] Comment on above: Test performed by gl ucose meter. Results may be 10%-15% lower than serum/plasma values. (CLIA ID [id number]) Glucose [Mass/Vol] 412 mg/dL High 70 - 100 mg/dL [facility] Comment on above: Test performed by gl ucose meter. Results may be 10%-15% lower than serum/plasma values. (CLIA ID [id number]) XR ABDOMEN (KUB) (SINGLE AP VIEW)on 09-19-2020 [facility] Incoming Radiology Results From [facility] - 09/19/2020 1:20 PM EST Patient Name: WILL JACINTO ---Diagnostic Radiology--- Exam Date/Time 09/19/2020 12:13:39 EST Exam CR Abdomen AP Ordering Physician MD JOANN, KYLAH Garcia Accession Number [id number] CPT4 Codes 75639 () Reason For Exam ileus fu Report [...] KRIKOR Transcribed Date and Time: 09/19/2020 1:20 [place], [place] Patient Name: WILL ALVARADO ---Diagnostic Radiology--- Exam Date/Time 09/19/2020 12:13:39 EST Exam CR Abdomen AP Ordering Physician MD DAVID RICHARD H Accession Number [id number] CPT4 Codes 38494 () Reason For Exam ileus fu Report [...] KRIKOR Transcribed Date and Time: 09/19/2020 1:20 [place], [place] Basic Metabolic Panelon 09-08 Anion gap [Moles/Vol] 10 mmol/L [place] Calcium [Mass/Vol] 9.0 mg/dL 8.4 - 10. 4 mg/dL [place], [place] Chloride [Moles/Vol] 99 mmol/L 98 - 10 7 mmol/L [place] CO2 [Moles/Vol] 25 mmol/L 22 - 30 mmol/L [place] Creatinine [Mass/Vol] 0.99 mg/dL 0.52 - 1.25 mg/dL [place] EGFR IF NonAfrican [place] 64.6 mL/min >60 [place], [place] Comment on above: KDIGO guidelines pro [...] MDRD (S/P/Bld) [Vol rate/Area] 74.9 mL/min/{1.73_m2} >60 [place], [place] Glucose [Mass/Vol] 310 mg/dL High 70 - 100 mg/dL [place] Interpretation and review of laboratory results Abnormal [place] Potassium [Moles/Vol] 5.3 mmol/L High 3.5 - 5.1 mmol/L [place], [place] Sodium [Moles/Vol] 134 mmol/L Low 135 - 145 mmol/L [place] Urea nitrogen [Mass/Vol] 35 mg/dL High 7 - 20 mg/dL [place] Test Performed by [facility], [address], [place], [place] [address] [place] Comprehensive Metabolic Pane l w/ Reflex to MGon 09-18-2020 Albumin [Mass/Vol] 3.9 g/dL 3.5 - 5 g/dL [place] ALP [Catalytic activity/Vol] 133 U/L High 38 - 126 U/L [place] ALT [Catalytic activity/Vol] 104 U/L High 0 - 34 U/L [place] Comment on above: The ALT test is perf ormed by an updated assay method. Please note that the reference intervals have been changed and are now sex specific. Anion gap [Moles/Vol] 8 mmol/L [place] AST [Catalytic activity/Vol] 74 U/L High 15 - 46 U/L [place] Bilirubin Ql (U) 0.8 mg/dL 0.2 - 1.3 mg/dL [place] Calcium [Mass/Vol] 9.2 mg/dL 8.4 - 10. 4 mg/dL [place] Chloride [Moles/Vol] 104 mmol/L 98 - 10 7 mmol/L [place] CO2 [Moles/Vol] 26 mmol/L 22 - 30 mmol/L [place] Creatinine [Mass/Vol] 0.97 mg/dL 0.52 - 1.25 mg/dL [place] EGFR IF NonAfrican [place] 66.3 mL/min >60 [place] Comment on above: KDIGO guidelines pro [...] MDRD (S/P/Bld) [Vol rate/Area] 76.8 mL/min/{1.73_m2} >60 [facility], [place] Glucose [Mass/Vol] 175 mg/dL High 70 - 100 mg/dL [facility], [place] Interpretation and review of laboratory results Abnormal [place] Potassium [Moles/Vol] 5.5 mmol/L High 3.5 - 5.1 mmol/L [facility], [place] Protein [Mass/Vol] 7.8 g/dL 6.3 - 8.2 g/dL [facility], [place] Sodium [Moles/Vol] 138 mmol/L 135 - 145 mmol/L [place] Urea nitrogen [Mass/Vol] 40 mg/dL High 7 - 20 mg/dL [place] Test Performed by [facility], [address] [place] [address] EKG 12 Lead - Chest Painon 1 11-18-2019 [facility] Incoming Cardiology Results From [facility] - 09/18/2020 4:47 PM EST [facility] Test Date: 2020-09-17 Pat Name: Will Jacinto Department: 01 Room: 268 Gender: F 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1965 Requested By: ART ZENG Order Number: [id number] Reading MD: Justin Ramirez Measurements Intervals [place] Rate: 82 P: 37 HI: 172 QRS: -39 QRSD: 110 T: 26 QT: 376 QTc: 439 Interpretive Statements SINUS RHYTHM NONSPECIFIC IVCD WITH LAD LEFT VENTRICULAR HYPERTROPHY Compared to ECG 06/24/2018 21:26:56 Intraventricular conduction delay now present Electronically Signed On 09-18-2020 16:46:18 EST by Justin Ramirez [facility], [facility] Test Date: 2020-09-17 Pat Name: Will Jacinto Department: 01 Room: 268 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: F 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 Results may be 10%-15% lower than serum/plasma values. (CLIA ID [id number]) Interpretation and review of laboratory results Abnormal [place] Test Performed by [facility] [employer], [address] [place] [address] [place], [employer] Glucose [Mass/Vol] 349 mg/dL High 70 - 100 mg/dL [place], [employer] Comment on above: Test performed by gl ucose meter. Results may be 10%-15% lower than serum/plasma values. (CLIA ID [id number]) Interpretation and review of laboratory results Abnormal [place] Test Performed by [facility] [employer], [address] [place], [place] [address] [place] Glucose [Mass/Vol] 341 mg/dL High 70 - 100 mg/dL [place] Comment on above: Test performed by gl ucose meter. Results may be 10%-15% lower than serum/plasma values. (CLIA ID [id number]) Interpretation and review of laboratory results Abnormal [place] Test Performed by [facility] [employer], [address], [place], [place] [address] [place] Glucose [Mass/Vol] 312 mg/dL High 70 - 100 mg/dL [employer] [place], [place] Comment on above: Test performed by gl ucose meter. Results may be 10%-15% lower than serum/plasma values. (CLIA ID [id number]) Interpretation and review of laboratory results Abnormal [employer] Test Performed by [facility], [address], [place], [place] [address] [facility] Glucose [Mass/Vol] 235 mg/dL High 70 - 100 mg/dL [facility] Comment on above: Test performed by gl ucose meter. Results may be 10%-15% lower than serum/plasma values. (CLIA ID [id number]) Interpretation and review of laboratory results Abnormal [employer] Test Performed by [facility], [address], [place] [address] [employer] XR ABDOMEN (KUB) (SINGLE AP VIEW)on 09-18-2020 [facility] Incoming Radiology Results From [facility] - 09/18/2020 10:26 AM EST Patient Name: WILL JACINTO ---Diagnostic Radiology--- Exam Date/Time 09/18/2020 09:25:00 EST Exam CR Abdomen AP Ordering Physician DO HILL LISA Accession Number [id number] CPT4 Codes 13037 () Reason For Exam ileus Report Clinical [...] HARLAN Transcribed Date and Time: 09/18/2020 10:25 [place] Patient Name: WILL ALVARADO ---Diagnostic Radiology--- Exam Date/Time 09/18/2020 09:25:00 EST Exam CR Abdomen AP Ordering Physician DO HILL LISA Accession Number [id number] CPT4 Codes 84063 () Reason For Exam ileus Report Clinical [...] HARLAN Transcribed Date and Time: 09/18/2020 10:25 [place] Abdomen Pelvis W Contrast on 09-17-2020 [facility] Results From [facility] - 09/17/2020 10:32 PM EST Patient Name: WILL JACINTO ---CT--- Exam Date/Time 09/17/2020 22:15:[address] Abdomen/Pelvis w/ IV Contrast (IV Onl Ordering Physician ART OWEN Accession Number [id number] CPT4 Codes 64890 (CT Abdomen/Pelvis w/ IV Contrast (IV Onl), Q9967 (CT ISOVUE 370MG/ML&[id number]&ML& 1) Reason For Exam abd pain/tenderness Report [...] R Transcribed Date and Time: 09/17/2020 10:31 [place], [place] Patient Name: WILL ALVARADO ---CT--- Exam Date/Time 09/17/2020 22:15:[address] Abdomen/Pelvis w/ IV Contrast (IV Onl Ordering Physician ART OWEN Accession Number [id number] CPT4 Codes 60672 (CT Abdomen/Pelvis w/ IV Contrast (IV Onl), Q9967 (CT ISOVUE 370MG/ML&[id number]&ML& 1) Reason For Exam abd pain/tenderness Report [...] R Transcribed Date and Time: 09/17/2020 10:31 [place], [place] Comprehensive Metabolic Pane [facility] 09-17-2020 Albumin [Mass/Vol] 4.2 g/dL 3.5 - 5 g/dL [place], [place] ALP [Catalytic activity/Vol] 153 U/L High 38 - 126 U/L [place], [place] ALT [Catalytic activity/Vol] 104 U/L High 0 - 34 U/L [place], [place] Comment on above: The ALT test is perf ormed by an updated assay method. Please note that the reference intervals have been changed and are now sex specific. Anion gap [Moles/Vol] 6 mmol/L [place], [place] AST [Catalytic activity/Vol] 69 U/L High 15 - 46 U/L [place], [place] Bilirubin Ql (U) 0.5 mg/dL 0.2 - 1.3 mg/dL [place], [place] Calcium [Mass/Vol] 10.3 mg/dL 8.4 - 10. 4 mg/dL [place], [place] Chloride [Moles/Vol] 101 mmol/L 98 - 10 7 mmol/L [place], [place] CO2 [Moles/Vol] 29 mmol/L 22 - 30 mmol/L [place], [place] Creatinine [Mass/Vol] 1.09 mg/dL 0.52 - 1.25 mg/dL [place], [place] EGFR IF NonAfrican [place] 57.5 mL/min Abnormal >60 [place], [place] Comment on above: KDIGO guidelines pro [...] MDRD (S/P/Bld) [Vol rate/Area] 66.7 mL/min/{1.73_m2} >60 [place], [place] Glucose [Mass/Vol] 122 mg/dL High 70 - 100 mg/dL [place], [place] Interpretation and review of laboratory results Abnormal [place], [place] Potassium [Moles/Vol] 5.7 mmol/L High 3.5 - 5.1 mmol/L [place], [place] Protein [Mass/Vol] 7.9 g/dL 6.3 - 8.2 g/dL [place], [place] Sodium [Moles/Vol] 137 mmol/L 135 - 145 mmol/L [place], [place] Urea nitrogen [Mass/Vol] 48 mg/dL High 7 - 20 mg/dL [place], [place] Hemogram (CBC) w/Auto Diffon 09-17-2020 Erythrocyte distribution width (RBC) [Ratio] 14.9 % High 11.5 - 14.5 % [place] Hematocrit (Bld) [Volume fraction] 33.9 % Low 35 - 47 % [place], [place] Hemoglobin (Bld) [Mass/Vol] 11.4 g/dL Low 11.7 - 16 g/dL [place], [place] Interpretation and review of laboratory results Abnormal [place], [place] MCH (RBC) [Entitic mass] 29.6 pg 26 - 34 pg [place], [place] MCHC (RBC) [Mass/Vol] 33.7 % 32 - 36 % [place] MCV (RBC) [Entitic vol] 87.8 fL 79 - 98 fL [place], [place] Platelet mean volume (Bld) [Entitic vol] 7.5 fL 7.4 - 10.4 fL [place], [place] Platelets (Bld) [#/Vol] 544 10*3/uL High 140 - 440 10*3/uL [place], [place] RBC (Bld) [#/Vol] 3.87 10*6/uL 3.8 - 5.2 10*6/uL [place], [place] WBC (Bld) [#/Vol] 11.0 10*3/uL High 3.6 - 10.7 10*3/uL [place] Test Performed by [facility], [address], [place], [place] [id number] [place] [address] Lipaseon 09-17-2020 Lipase [Catalytic activity/Vol] 39 U/L 23 - 300 U/L [facility]- [place] Manual Differentialon 2019 Absolute Baso # 0.0 10*3/uL 0 - 0.2 10*3/uL [facility] Absolute Eos # 0.0 10*3/uL 0 - 0.5 10*3/uL [facility] Absolute Lymph # 0.8 10*3/uL Low 1.1 - 4.5 10*3/uL [facility] Absolute Metcalfe # 0.8 10*3/uL 0.2 - 1.1 10*3/uL [facility] Absolute Neut # 9.4 10*3/uL High 2.2 - 8.2 10*3/uL [facility] Bands 1 % 0 - 3 % [facility] Basophils 0 % 0 - 2 % [facility] Eosinophils 0 % Low 1 - 6 % [facility] [place] Interpretation and review of laboratory results Abnormal [facility] Lymphocytes 7 % Low 20 - 40 % [facility] Monocytes 7 % 2 - 10 % [facility] [place] Myelocytes 1 % Abnormal <1 [facility] Polychromasia Slight [facility] RBC morphology finding Nom (Bld) ABNORMAL [facility] Seg Neutrophils 84 % High 40 - 80 % [facility] [place] TOTAL CELLS COUNTED 100 [facility] Test Performed by [facility], [address] [facility]- [place] Otheron 09-17-2020 Test Performed by [facility], [address] [place], [place] [address] [place] [address] [facility] POCT Glucoseon 09-17-2020 Glucose [Mass/Vol] 124 mg/dL High 70 - 100 mg/dL [facility] Comment on above: Test performed by ucose meter. Results may be 10%-15% lower than serum/plasma values. (CLIA ID [id number]) Interpretation and review of laboratory results Abnormal [facility] Test Performed by [facility], [address] [place], [place] [address] [facility] Troponin x1on 09-17-2020 Troponin I.cardiac [Mass/Vol] ng/mL 0 - 0.034 ng/mL [place], [place] Comment on above: . Test Performed by [facility], [address] [place], [place] [address] [place], [place] Urinalysison 09-17-2020 Appearance (U) Clear Clear NA [place], [place] Comment on above: . Bilirubin Urine Negative Negative mg/dL [place], [place] Comment on above: . Color (U) Yellow Lt. Yellow NA [place], [place] Comment on above: . Glucose, Ur Normal Normal (<70) mg/dL [place], [place] Comment on above: . Interpretation and review of laboratory results Abnormal [place], [place] Ketones Ql (U) Trace Abnormal Negative mg/dL [place], [place] Comment on above: . LEUKOCYTES, UA 25 Abnormal Negative Kat/uL [place], [place] Comment on above: . Mucous Threads Few Negative /[LPF] [place], [place] Comment on above: . Nitrite, Urine Negative Negative NA [place], [place] Comment on above: . Occult Blood,Urine 1.0 mg/dL Abnormal Negative [place], [place] Comment on above: . pH (U) 5.5 [pH] [place], [place] Comment on above: . Protein (U) [Mass/Vol] 10 mg/dL Abnormal Negative [place], [place] Comment on above: . RBC (U) [#/Vol] 51-100 Abnormal 0 - 2 /[HPF] [place], [place] Comment on above: . Specific [place], Urine 1.021 M [place], [place] Comment on above: . Squam Epithel, UA 0-2 3 - 5 /[HPF] [place], [place] Comment on above: . Urobilinogen, Urine Normal Normal (0-1) mg/dL [place], [place] Comment on above: . WBC, UA 0-2 0 - 5 /[HPF] [place], [place] Comment on above: . Test Performed by [facility], [address] [place], [place] [address] [place], [place] Basic Metabolic Panelon 12-10 Calcium [Mass/Vol] 9.9 mg/dL Normal 8.4-10.4 [facility] Comment on above: Performed By: #### B GLU #### [facility] [address], [place] Glucose [Mass/Vol] 404 mg/dL High 70-100 [facility] Comment on above: Performed By: #### B GLU #### [facility] [address], [place] Anion gap [Moles/Vol] 13 Normal [facility] Comment on above: Performed By: #### B GLU #### [place] [address] [address], [place] CO2 [Moles/Vol] 28 mmol/L Normal 22-30 [facility] Comment on above: Performed By: #### B GLU #### [place] [address] [address], [place] Creatinine [Mass/Vol] 0.95 mg/dL Normal 0.52-1.25 [facility] Comment on above: Performed By: #### B GLU #### [facility] [address], [place] GFR/1.73 sq M predicted among blacks MDRD (S/P/Bld) [Vol rate/Area] mL/min/{1.73_m2} Normal >60 [facility] Comment on above: Performed By: #### B GLU #### [facility] [address], [place] GFR/1.73 sq M predicted among non-blacks MDRD (S/P/Bld) [Vol rate/Area] mL/min/{1.73_m2} Normal >60 [facility] Comment on above: Result Comment: Sour ce- MDRD equation with creatinine calibration to IDMS(NKDEP) eGFR not recommended for drug dose adjustment Performed By: #### B GLU #### [facility] [address], [place] Urea nitrogen [Mass/Vol] 23 mg/dL High 7-20 [facility] Comment on above: Performed By: #### B GLU #### [place] [address] [address], [place] Chloride [Moles/Vol] 94 mmol/L Low 98-107 [facility] Comment on above: Performed By: #### B GLU #### [facility] [address], [place] Potassium [Moles/Vol] 4.8 mmol/L Normal 3.5-5.1 [facility] Comment on above: Performed By: #### B GLU #### [facility] [address], [place] Sodium [Moles/Vol] 135 mmol/L Normal 135-145 [facility] Comment on above: Performed By: #### B GLU #### [facility] [address], [place] Basic Metabolic Panel w/ Ref kaye to MGon 01-02-2020 Anion gap [Moles/Vol] 13 mmol/L [place], [place] Calcium [Mass/Vol] 9.9 mg/dL 8.4 - 10. 4 mg/dL [place], [place] Chloride [Moles/Vol] 94 mmol/L Low 98 - 10 7 mmol/L [place], [place] CO2 [Moles/Vol] 28 mmol/L 22 - 30 mmol/L [place], [place] Creatinine [Mass/Vol] 0.95 mg/dL 0.52 - 1.25 mg/dL [place], [place] EGFR IF NonAfrican [place] >60.0 >60 mL/min [place], [place] Comment on above: Source- MDRD equatio n with creatinine calibration to IDMS(NKDEP) eGFR not recommended for drug dose adjustment GFR/1.73 sq M predicted among blacks MDRD (S/P/Bld) [Vol rate/Area] mL/min/{1.73_m2} >60 mL/min [place], [place] Glucose [Mass/Vol] 404 mg/dL High 70 - 100 mg/dL [place], [place] Interpretation and review of laboratory results Abnormal [place], [place] Potassium [Moles/Vol] 4.8 mmol/L 3.5 - 5.1 mmol/L [facility] [place] Sodium [Moles/Vol] 135 mmol/L 135 - 145 mmol/L [facility], [place] Urea nitrogen [Mass/Vol] 23 mg/dL High 7 - 20 mg/dL [facility], [place] Test Performed by [facility], [address] [place] [address] [facility], [place] Hemoglobin AND Hematocriton 01-02-2020 Hematocrit (Bld) [Volume fraction] 40.5 % Normal 35.0-47.0 [facility] Comment on above: Performed By: #### B GLU #### [facility] [address] [place] [address] Hemoglobin (Bld) [Mass/Vol] 13.5 g/dL Normal 11.7-16.0 [facility] Comment on above: Performed By: #### B GLU #### [facility] [address] [place] [address] Hemoglobin and Hematocrit, B loodon 01-02-2020 Hematocrit (Bld) [Volume fraction] 40.5 % 35 - 47 % [facility] [place] [facility] Hemoglobin (Bld) [Mass/Vol] 13.5 g/dL 11.7 - 16 g/dL [facility], [place] Test Performed by [facility], [address] [place] [address] [facility], [place] Add On Lab Teston 06-27-2019 Sodium [Moles/Vol] Accepted [facility], [place] Comment on above: Specimen available & acceptable for analysis. Test Performed by [facility], [address] [place] [address], [place] C-Reactive Proteinon 019 CRP [Mass/Vol] 45.5 mg/L High 0 - 6 mg/L [facility], [place] Comment on above: . Interpretation and review of laboratory results Abnormal [facility], [place] Test Performed by [facility], [address] [place], [address], [place] Sedimentation Rateon 019 Interpretation and review of laboratory results Abnormal [facility], [place] Sed Rate 130 mm/h High 0 - 20 mm/h [facility], [place] Test Performed by [facility], [address], [place], [place] [address] [place], [place] Comprehensive Metabolic Pane gigi 06-26-2019 Albumin [Mass/Vol] 3.6 g/dL 3.5 - 5 g/dL [place], [place] ALP [Catalytic activity/Vol] 165 U/L High 38 - 126 U/L [place] ALT [Catalytic activity/Vol] 37 U/L 13 - 69 U/L [place], [place] Anion gap [Moles/Vol] 9 mmol/L [place] AST [Catalytic activity/Vol] 21 U/L 15 - 46 U/L [place], [place] Bilirubin Ql (U) 0.5 mg/dL 0.2 - 1.3 mg/dL [place], [place] Calcium [Mass/Vol] 8.8 mg/dL 8.4 - 10. 4 mg/dL [place], [place] Chloride [Moles/Vol] 102 mmol/L 98 - 10 7 mmol/L [place] CO2 [Moles/Vol] 26 mmol/L 22 - 30 mmol/L [place], [place] Creatinine [Mass/Vol] 1.06 mg/dL 0.52 - 1.25 mg/dL [place], [place] EGFR IF NonAfrican [place] 54.3 mL/min >60 [place], [place] Comment on above: Source- MDRD equatio n with creatinine calibration to IDMS(NKDEP) eGFR not recommended for drug dose adjustment GFR/1.73 sq M predicted among blacks MDRD (S/P/Bld) [Vol rate/Area] mL/min/{1.73_m2} >60 mL/min [place], [place] Glucose [Mass/Vol] 156 mg/dL High 70 - 100 mg/dL [place], [place] Interpretation and review of laboratory results Abnormal [place] Potassium [Moles/Vol] 4.5 mmol/L 3.5 - 5.1 mmol/L [place] Protein [Mass/Vol] 6.9 g/dL 6.3 - 8.2 g/dL [place], [place] Sodium [Moles/Vol] 137 mmol/L 135 - 145 mmol/L [place], [place] Urea nitrogen [Mass/Vol] 28 mg/dL High 7 - 20 mg/dL [place] Test Performed by [facility], [address], [place], [place] [address] [place] Hemogram (CBC) w/Auto Diffon 06-26-2019 Absolute Baso # 0.1 10*3/uL 0 - 0.2 10*3/uL [place], [place] Absolute Neut # 5.3 10*3/uL 1.8 - 7 10*3/uL [place], [place] Basophils/100 WBC (Bld) 0.7 % 0 - 2 % [place], [place] Eosinophils (Bld) [#/Vol] 0.2 10*3/uL 0 - 0.5 10*3/uL [place], [place] Eosinophils/100 WBC (Bld) 2.0 % 1 - 6 % [place] Erythrocyte distribution width (RBC) [Ratio] 21.5 % High 11.5 - 14.5 % [place], [place] Granulocytes/100 WBC (Bld) 65.6 % 40 - 80 % [place] Hematocrit (Bld) [Volume fraction] 22.8 % Low 35 - 47 % [place] Hemoglobin (Bld) [Mass/Vol] 7.3 g/dL Low 11.7 - 16 g/dL [place], [place] Interpretation and review of laboratory results Abnormal [place] Lymphocytes (Bld) [#/Vol] 1.8 10*3/uL 1 - 4.3 10*3/uL [place], [place] Lymphocytes/100 WBC (Bld) 21.6 % 20 - 40 % [place], [place] MCH (RBC) [Entitic mass] 23.8 pg Low 26 - 34 pg [place], [place] MCHC (RBC) [Mass/Vol] 32.0 % 32 - 36 % [place] MCV (RBC) [Entitic vol] 74.3 fL Low 79 - 98 fL [place], [place] Monocytes (Bld) [#/Vol] 0.8 10*3/uL 0 - 0.8 10*3/uL [place], [place] Monocytes/100 WBC (Bld) 10.1 % High 2 - 10 % [place], [place] Platelet mean volume (Bld) [Entitic vol] 6.7 fL Low 7.4 - 10.4 fL [place], [place] Platelets (Bld) [#/Vol] 540 10*3/uL High 140 - 440 10*3/uL [facility], [place] RBC (Bld) [#/Vol] 3.07 10*6/uL Low 3.8 - 5.2 10*6/uL [place], [place] WBC (Bld) [#/Vol] 8.1 10*3/uL 3.6 - 10.7 10*3/uL [place] Test Performed by [facility], [address] [place], [place] [id number] [place] [address] Lactic Acid, Plasmaon 2018 Lactate [Moles/Vol] 1.7 mmol/L 0.7 - 2 mmol/L [place] Test Performed by [facility], [address] [place], [place] [address] [place], [place] Metabolic Panelon 06-26-2019 Sodium [Moles/Vol] Slight [facility], [place] Otheron 06-26-2019 Test Performed by [facility], [address] [place], [place] [address] [place] RBC MORPHOLOGYon 06-26-2019 Anisocytosis Ql (Bld) Slight [place] Basophilic stippling LM Ql (Bld) Slight [facility], [place] RBC morphology finding Nom (Bld) ABNORMAL [place], [place] Sodium [Moles/Vol] Moderate [facility], [place] TYPE AND SCREENon 06-26-2019 Sodium [Moles/Vol] Positive [place], [place] Comment on above: Test Performed by [facility], [address] [place], [place] [address] Sodium [Moles/Vol] Negative [place], [place] Comment on above: Test Performed by [facility], [address] [place] [address] Sodium [Moles/Vol] O [facility], [place] XR FEMUR RIGHT (MIN 2 VIEWS) on 06-26-2019 Patient Name: WILL ALVARADO ---Diagnostic Radiology--- Exam Date/Time 06/26/2019 22:31:46 EDT Exam CR Femur 2+ Views Right n Ordering Physician KELLEY ELLIOTT TAYLOR Accession Number [id number] CPT4 Codes 91930 () Reason For Exam right AKA wound drainage, swelling, erythema and warmth Report RIGHT FEMUR TWO VIEWS CLINICAL INDICATION: right AKA wound drainage, swelling, erythema and warmth TECHNIQUE: Two views of the right femur. COMPARISON: 06/14/2019 FINDINGS: Status post recent dorfe-rwx-yfeq amputation. Overlying soft tissue swelling and skin boo. No obvious acute bone destruction. IMPRESSION: 1. Soft tissue swelling and skin boo overlie the operative site. No obvious bone destruction. Report Dictated on --- Final --- Dictating Physician: MD UGALDE JOHN R Signed Date and Time: 06/26/2019 10:34 pm Signed by: MD UGALDE JOHN R Transcribed Date and Time: 06/26/2019 10:35 [place], [place] [facility] - 06/26/2019 10:36 PM EDT Patient Name: WILL JACINTO ---Diagnostic Radiology--- Exam Date/Time 06/26/2019 22:31:46 EDT Exam CR Femur 2+ Views Right n Ordering Physician KELLEY ELLIOTT TAYLOR Accession Number [id number] CPT4 Codes 85349 () Reason For Exam right AKA wound drainage, swelling, erythema and warmth Report RIGHT FEMUR TWO VIEWS CLINICAL INDICATION: right AKA wound drainage, swelling, erythema and warmth TECHNIQUE: Two views of the right femur. COMPARISON: 06/14/2019 FINDINGS: Status post recent dejub-gxp-khkq amputation. Overlying soft tissue swelling and skin boo. No obvious acute bone destruction. IMPRESSION: 1. Soft tissue swelling and skin boo overlie the operative site. No obvious bone destruction. Report Dictated on --- Final --- Dictating Physician: MD TRAM, JAVY Doshi Signed Date and Time: 06/26/2019 10:34 pm Signed by: MD UGALDE JOHN R Transcribed Date and Time: 06/26/2019 10:35 [place], [place] Comprehensive Metabolic Pane l w/ Reflex to MGon 06-20-2019 Albumin [Mass/Vol] 3.4 g/dL Low 3.5 - 5 g/dL [place], [place] ALP [Catalytic activity/Vol] 124 U/L 38 - 126 U/L [place] ALT [Catalytic activity/Vol] 57 U/L 13 - 69 U/L [place], [place] Anion gap [Moles/Vol] 7 mmol/L [place] AST [Catalytic activity/Vol] 62 U/L High 15 - 46 U/L [place], [place] Bilirubin Ql (U) 0.4 mg/dL 0.2 - 1.3 mg/dL [place], [place] Calcium [Mass/Vol] 8.9 mg/dL 8.4 - 10. 4 mg/dL [place], [place] Chloride [Moles/Vol] 105 mmol/L 98 - 10 7 mmol/L [place] CO2 [Moles/Vol] 26 mmol/L 22 - 30 mmol/L [place] Creatinine [Mass/Vol] 1.18 mg/dL 0.52 - 1.25 mg/dL [place], [place] EGFR IF NonAfrican [place] 48.0 mL/min >60 [place], [place] Comment on above: Source- MDRD equatio n with creatinine calibration to IDNY(NKDEP) eGFR not recommended for drug dose adjustment GFR/1.73 sq M predicted among blacks MDRD (S/P/Bld) [Vol rate/Area] 58.1 mL/min/{1.73_m2} >60 [place], [place] Glucose [Mass/Vol] 85 mg/dL 70 - 100 mg/dL [place], [place] Interpretation and review of laboratory results Abnormal [place], [place] Potassium [Moles/Vol] 4.6 mmol/L 3.5 - 5.1 mmol/L [place], [place] Protein [Mass/Vol] 6.4 g/dL 6.3 - 8.2 g/dL [place], [place] Sodium [Moles/Vol] 139 mmol/L 135 - 145 mmol/L [place], [place] Urea nitrogen [Mass/Vol] 30 mg/dL High 7 - 20 mg/dL [place] Test Performed by [facility], [facility] [place] [address] [place], [place] Culture, Aerobic Bacteria wi th Gram Staion 06-20-2019 Aerobic Culture Many CARBAPENEMASE GENE DETECTION BY PCR VIM gene DETECTED IMP gene Not Detected NDM gene Not Detected KPC gene Not Detected OXA48 gene Not Detected The targets listed above are genes that may confer resistance to the carbapenems. Methodology: Real-time PCR ([email or web address] [place], [place] Aerobic Culture Pseudomonas aeruginosa Abnormal [place], [place] Aerobic Culture Mixed enteric dorinda present. Abnormal [place], [place] INR Coag (Bld) [Relative time] Moderate polymorphonuclear cells/lpf. Moderate gram positive cocci. Moderate gram negative bacilli. [place] Interpretation and review of laboratory results Abnormal [place] Test Performed by [facility], [facility] [place] [address] [place], [place] POCT Glucoseon 06-20-2019 Glucose [Mass/Vol] 206 mg/dL High 70 - 100 mg/dL [place], [place] Comment on above: Test performed by ucose meter. Results may be 10%-15% lower than serum/plasma values. (CLIA ID [id number]) Interpretation and review of laboratory results Abnormal [place] Test Performed by [facility], [address] [place] [address] [place], [place] Glucose [Mass/Vol] 200 mg/dL High 70 - 100 mg/dL [place], [place] Comment on above: Test performed by gl ucose meter. Results may be 10%-15% lower than serum/plasma values. (CLIA ID [id number]) Interpretation and review of laboratory results Abnormal [place], [place] Test Performed by [facility], [address] [place] [address] [place], [place] Glucose [Mass/Vol] 189 mg/dL High 70 - 100 mg/dL [place], [place] Comment on above: Test performed by gl ucose meter. Results may be 10%-15% lower than serum/plasma values. (CLIA ID [id number]) Interpretation and review of laboratory results Abnormal [place], [place] Test Performed by [facility], [address] [place] [address] [place], [place] Surgical Pathologyon 019 Sodium [Moles/Vol] SEE BELOW [place], [place] 1 [id number] [facility] PATHOLOGY AND LABORATORY MEDICINE [address] [place] [address] FINAL SURGICAL PATHOLOGY REPORT NAME: WILL JACINTO : 1965 53 Y F [facility] NO.: [id number] LOCATION: I 6125 01 PROCEDURE 06/16/2019 DATE: SURGEON: SERGIO PISANO M.D. RECEIVED 06/17/2019 DATE: ATTENDING: JAYESH JORDAN MD REPORT DATE: 06/20/2019 COPIES TO: DIAGNOSIS: LEG, RIGHT ABOVE THE KNEE AMPUTATION - SKIN WITH ULCERATION AND NECROTIZING ACUTE INFLAMMATION OF SOFT TISSUE OF THE FOOT. 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 MILD CALCIFIC ATHEROSCLEROSIS. HI/HI Signature> ALLEN JERRY M.D. CLINICAL INFORMATION: Not [...] characteristics determined by the clinical laboratories of [facility]. They have not been cleared by [...] negativity on decalcified specimens. Professional Performing Location: [place] [address]. DEPARTMENT OF PATHOLOGY AND LABORATORY MEDICINE [place], [place] [address] [place], [place] Anaerobic Cultureon 06-19-20 19 Anaerobic Culture Many [place], [place] Anaerobic Culture Positive Abnormal [place] Interpretation and review of laboratory results Abnormal [place] Test Performed by [facility], [address] [place] [address], [place] [address] [place] Comprehensive Metabolic Pane l w/ Reflex to MGon 06-19-2019 Albumin [Mass/Vol] 3.6 g/dL 3.5 - 5 g/dL [place] ALP [Catalytic activity/Vol] 126 U/L 38 - 126 U/L [place] ALT [Catalytic activity/Vol] 54 U/L 13 - 69 U/L [place], [place] Anion gap [Moles/Vol] 10 mmol/L [place] AST [Catalytic activity/Vol] 71 U/L High 15 - 46 U/L [place] Bilirubin Ql (U) 0.6 mg/dL 0.2 - 1.3 mg/dL [place], [place] Calcium [Mass/Vol] 9.0 mg/dL 8.4 - 10. 4 mg/dL [place], [place] Chloride [Moles/Vol] 101 mmol/L 98 - 10 7 mmol/L [place] CO2 [Moles/Vol] 24 mmol/L 22 - 30 mmol/L [place] Creatinine [Mass/Vol] 1.67 mg/dL High 0.52 - 1.25 mg/dL [place], [place] EGFR IF NonAfrican [place] 32.1 mL/min >60 [place], [place] Comment on above: Source- MDRD equatio n with creatinine calibration to IDMS(NKDEP) eGFR not recommended for drug dose adjustment GFR/1.73 sq M predicted among blacks MDRD (S/P/Bld) [Vol rate/Area] 38.9 mL/min/{1.73_m2} >60 [place], [place] Glucose [Mass/Vol] 180 mg/dL High 70 - 100 mg/dL [place] Interpretation and review of laboratory results Abnormal [place], [place] Potassium [Moles/Vol] 5.7 mmol/L High 3.5 - 5.1 mmol/L [place] Protein [Mass/Vol] 6.8 g/dL 6.3 - 8.2 g/dL [place], [place] Sodium [Moles/Vol] 135 mmol/L 135 - 145 mmol/L [place], [place] Urea nitrogen [Mass/Vol] 33 mg/dL High 7 - 20 mg/dL [facility] [place] [facility] MARYAM Test Performed by [facility], [facility] [place] [address] [place], [place] Otheron 06-19-2019 Blood Culture, Routine No growth at 5 days. [facility] [place] [facility] MARYAM Test Performed by [facility], [address] [place] [id number] Specimen Source Comment:Blood [facility]ARY[facility] POCT Glucoseon 06-19-2019 Glucose [Mass/Vol] 135 mg/dL High 70 - 100 mg/dL [place], [place] Comment on above: Test performed by gl ucose meter. Results may be 10%-15% lower than serum/plasma values. (CLIA ID [id number]) Interpretation and review of laboratory results Abnormal [facility], [place]ARYAM Test Performed by [facility], [facility] [place] [address] [place] Glucose [Mass/Vol] 219 mg/dL High 70 - 100 mg/dL [place], [place] Comment on above: Test performed by gl ucose meter. Results may be 10%-15% lower than serum/plasma values. (CLIA ID [id number]) Interpretation and review of laboratory results Abnormal [facility], [place]ARYAM Test Performed by [facility], [place] [address] [place], [place] Glucose [Mass/Vol] 222 mg/dL High 70 - 100 mg/dL [place], [place] Comment on above: Test performed by gl ucose meter. Results may be 10%-15% lower than serum/plasma values. (CLIA ID [id number]) Interpretation and review of laboratory results Abnormal [facility], [place]ARYAM Test Performed by [facility], [facility] [place] [address] [place] Procalcitoninon 06-19-2019 Interpretation and review of laboratory results Abnormal [place] Procalcitonin 0.32 ng/mL Abnormal <0.10 [place], [place] Sodium [Moles/Vol] See Below [place], [place] Comment on above: PCT <0.50 = Low risk of severe sepsis and/or septic shock. PCT >2.00 = High risk of severe sepsis and/or septic shock. Test Performed by [facility], [address] [place] [address] [place] Comprehensive Metabolic Pane l w/ Reflex to MGon 06-18-2019 Albumin [Mass/Vol] 3.3 g/dL Low 3.5 - 5 g/dL [place] ALP [Catalytic activity/Vol] 94 U/L 38 - 126 U/L [place] ALT [Catalytic activity/Vol] 44 U/L 13 - 69 U/L [place], [place] Anion gap [Moles/Vol] 10 mmol/L [place] AST [Catalytic activity/Vol] 48 U/L High 15 - 46 U/L [place], [place] Bilirubin Ql (U) 0.5 mg/dL 0.2 - 1.3 mg/dL [place] Calcium [Mass/Vol] 8.7 mg/dL 8.4 - 10. 4 mg/dL [place], [place] Chloride [Moles/Vol] 100 mmol/L 98 - 10 7 mmol/L [place] CO2 [Moles/Vol] 26 mmol/L 22 - 30 mmol/L [place] Creatinine [Mass/Vol] 1.53 mg/dL High 0.52 - 1.25 mg/dL [place], [place] EGFR IF NonAfrican [place] 35.6 mL/min >60 [place], [place] Comment on above: Source- MDRD equatio n with creatinine calibration to IDMS(NKDEP) eGFR not recommended for drug dose adjustment GFR/1.73 sq M predicted among blacks MDRD (S/P/Bld) [Vol rate/Area] 43.1 mL/min/{1.73_m2} >60 [place] Glucose [Mass/Vol] 108 mg/dL High 70 - 100 mg/dL [place] Interpretation and review of laboratory results Abnormal [facility]ARYAM Potassium [Moles/Vol] 4.2 mmol/L 3.5 - 5.1 mmol/L [place] Protein [Mass/Vol] 6.1 g/dL Low 6.3 - 8.2 g/dL [place], [place] Sodium [Moles/Vol] 135 mmol/L 135 - 145 mmol/L [place] Urea nitrogen [Mass/Vol] 29 mg/dL High 7 - 20 mg/dL [place] Test Performed by [facility], [facility] [place] [address] [place], [place] POCT Glucoseon 06-18-2019 Glucose [Mass/Vol] 189 mg/dL High 70 - 100 mg/dL [place], [place] Comment on above: Test performed by gl ucose meter. Results may be 10%-15% lower than serum/plasma values. (CLIA ID [id number]) Interpretation and review of laboratory results [facility], [facility] [place] [address] [place], [place] Glucose [Mass/Vol] 207 mg/dL High 70 - 100 mg/dL [place], [place] Comment on above: Test performed by gl ucose meter. Results may be 10%-15% lower than serum/plasma values. (CLIA ID [id number]) Interpretation and review of laboratory results Abnormal [facility] [place] [facility]ARY[facility] Test Performed by [facility], [place] [address] [place] Glucose [Mass/Vol] 206 mg/dL High 70 - 100 mg/dL [place], [place] Comment on above: Test performed by gl ucose meter. Results may be 10%-15% lower than serum/plasma values. (CLIA ID [id number]) Interpretation and review of laboratory results Abnormal [facility], [place]ARYAM Test Performed by [facility], [address] [place], [place] [address] [place] [address] Glucose [Mass/Vol] 156 mg/dL High 70 - 100 mg/dL [place], [place] Comment on above: Test performed by gl ucose meter. Results may be 10%-15% lower than serum/plasma values. (CLIA ID [id number]) Interpretation and review of laboratory results Abnormal [place] Test Performed by [facility], [facility] [place], [place] [address] [place] [address] CBCon 06-17-2019 Erythrocyte distribution width (RBC) [Ratio] 22.4 % High 11.5 - 14.5 % [place] Hematocrit (Bld) [Volume fraction] 24.8 % Low 35 - 47 % [place] Hemoglobin (Bld) [Mass/Vol] 7.6 g/dL Low 11.7 - 16 g/dL [place], [place] Interpretation and review of laboratory results Abnormal [place], [place] MCH (RBC) [Entitic mass] 23.3 pg Low 26 - 34 pg [place] MCHC (RBC) [Mass/Vol] 30.7 % Low 32 - 36 % [place] MCV (RBC) [Entitic vol] 76.1 fL Low 79 - 98 fL [place], [place] Platelet mean volume (Bld) [Entitic vol] 7.8 fL 7.4 - 10.4 fL [place], [place] Platelets (Bld) [#/Vol] 403 10*3/uL 140 - 440 10*3/uL [place], [place] RBC (Bld) [#/Vol] 3.26 10*6/uL Low 3.8 - 5.2 10*6/uL [place], [place] WBC (Bld) [#/Vol] 13.3 10*3/uL High 3.6 - 10.7 10*3/uL [place] Test Performed by [facility], [facility] [address] Comprehensive Metabolic Pane l w/ Reflex to MGon 06-17-2019 Albumin [Mass/Vol] 3.7 g/dL 3.5 - 5 g/dL [place] ALP [Catalytic activity/Vol] 121 U/L 38 - 126 U/L [place] ALT [Catalytic activity/Vol] 30 U/L 13 - 69 U/L [place], [place] Anion gap [Moles/Vol] 14 mmol/L [place] AST [Catalytic activity/Vol] 34 U/L 15 - 46 U/L [place] Bilirubin Ql (U) 0.7 mg/dL 0.2 - 1.3 mg/dL [place] Calcium [Mass/Vol] 8.5 mg/dL 8.4 - 10. 4 mg/dL [place] Chloride [Moles/Vol] 98 mmol/L 98 - 10 7 mmol/L [place] CO2 [Moles/Vol] 21 mmol/L Low 22 - 30 mmol/L [place] Creatinine [Mass/Vol] 0.94 mg/dL 0.52 - 1.25 mg/dL [place] EGFR IF NonAfrican [place] >60.0 >60 mL/min [place], [place] Comment on above: Source- MDRD equatio n with creatinine calibration to IDMS(NKDEP) eGFR not recommended for drug dose adjustment GFR/1.73 sq M predicted among blacks MDRD (S/P/Bld) [Vol rate/Area] mL/min/{1.73_m2} >60 mL/min [place] Glucose [Mass/Vol] 399 mg/dL High 70 - 100 mg/dL [place], [place] Comment on above: repeated Interpretation and review of laboratory results Abnormal [place], [place] Potassium [Moles/Vol] 5.3 mmol/L High 3.5 - 5.1 mmol/L [place] Protein [Mass/Vol] 6.6 g/dL 6.3 - 8.2 g/dL [place], [place] Sodium [Moles/Vol] 134 mmol/L Low 135 - 145 mmol/L [place] Urea nitrogen [Mass/Vol] 25 mg/dL High 7 - 20 mg/dL [place] Test Performed by [facility] [address] [address] [place] Hematologyon 06-17-2019 ABO and Rh group Nom (Bld) 5100 [place] Metabolic Panelon 06-17-2019 Sodium [Moles/Vol] [id number] [place], [place] Sodium [Moles/Vol] released [place], [place] POCT Glucoseon 06-17-2019 Glucose [Mass/Vol] 305 mg/dL High 70 - 100 mg/dL [place], [place] Comment on above: Test performed by gl ucose meter. Results may be 10%-15% lower than serum/plasma values. (CLIA ID [id number]) Interpretation and review of laboratory results Abnormal [place] Test Performed by [facility], [address] [place] [id number] [place] [address] Glucose [Mass/Vol] 373 mg/dL High 70 - 100 mg/dL [place], [place] Comment on above: Test performed by gl ucose meter. Results may be 10%-15% lower than serum/plasma values. (CLIA ID [id number]) Interpretation and review of laboratory results Abnormal [place] Test Performed by [id number] [place] [address] Glucose [Mass/Vol] 477 mg/dL High 70 - 100 mg/dL [place], [place] Comment on above: Test performed by gl ucose meter. Results may be 10%-15% lower than serum/plasma values. (CLIA ID [id number]) Interpretation and review of laboratory results Abnormal [place] Test Performed by [facility], [facility] [place] [address] [place] PREPARE RBC (CROSSMATCH)on 0 06-17-2019 Blood product unit ID (Dose) [#] [id number] [place], [place] Blood product unit ID (Dose) [#] [id number] [place] Sodium [Moles/Vol] [id number] mmol/L [place] Sodium [Moles/Vol] [id number] mmol/L [place], [place] Potassiumon 06-17-2019 Interpretation and review of laboratory results Abnormal [place] Potassium [Moles/Vol] 5.4 mmol/L High 3.5 - 5.1 mmol/L [place] Test Performed by [facility], [address] [place] [address] [place] Procalcitoninon 06-17-2019 Interpretation and review of laboratory results Abnormal [place] Procalcitonin 0.11 ng/mL Abnormal <0.10 [place], [place] Sodium [Moles/Vol] See Below [place], [place] Comment on above: PCT <0.50 = Low risk of severe sepsis and/or septic shock. PCT >2.00 = High risk of severe sepsis and/or septic shock. Test Performed by [facility], [address] [place] [address] [place] Albuminon 06-16-2019 Albumin [Mass/Vol] 3.9 g/dL 3.5 - 5 g/dL [place] Test Performed by [facility], [facility] [address] [place], [place] CBCon 06-16-2019 Erythrocyte distribution width (RBC) [Ratio] 22.9 % High 11.5 - 14.5 % [place] Hematocrit (Bld) [Volume fraction] 28.2 % Low 35 - 47 % [place] Hemoglobin (Bld) [Mass/Vol] 8.8 g/dL Low 11.7 - 16 g/dL [place] Interpretation and review of laboratory results Abnormal [place] MCH (RBC) [Entitic mass] 23.8 pg Low 26 - 34 pg [place] MCHC (RBC) [Mass/Vol] 31.2 % Low 32 - 36 % [place] MCV (RBC) [Entitic vol] 76.0 fL Low 79 - 98 fL [place], [place] Platelet mean volume (Bld) [Entitic vol] 7.7 fL 7.4 - 10.4 fL [place], [place] Platelets (Bld) [#/Vol] 372 10*3/uL 140 - 440 10*3/uL [place] RBC (Bld) [#/Vol] 3.71 10*6/uL Low 3.8 - 5.2 10*6/uL [place] WBC (Bld) [#/Vol] 6.7 10*3/uL 3.6 - 10.7 10*3/uL [place] Test Performed by [facility], [address] [place] [address] [place] Erythrocyte distribution width (RBC) [Ratio] disregard Critically abnormal 11.5 - 14.5 % [place] Comment on above: CORRECTED RESULT...P revious above value was 23.2, verified on 06/16/19 at 04:45 by LRB . Hematocrit (Bld) [Volume fraction] disregard Critically abnormal 35 - 47 % [place] Comment on above: CORRECTED RESULT...P revious above value was 30.2, verified on 06/16/19 at 04:45 by LRB . Hemoglobin (Bld) [Mass/Vol] disregard Critically abnormal 11.7 - 16 g/dL [place] Comment on above: CORRECTED RESULT...P revious above value was 9.3, verified on 06/16/19 at 04:45 by LRB . Interpretation and review of laboratory results Abnormal [place] MCH (RBC) [Entitic mass] disregard Critically abnormal 26 - 34 pg [place], [place] Comment on above: CORRECTED RESULT...P revious above value was 23.4, verified on 06/16/19 at 04:45 by LRB . MCHC (RBC) [Mass/Vol] disregard Critically abnormal 32 - 36 % [place], [place] Comment on above: CORRECTED RESULT...P revious above value was 30.8, verified on 06/16/19 at 04:45 by LRB . MCV (RBC) [Entitic vol] disregard Critical ly abnormal 79 - 98 fL [place], [place] Comment on above: CORRECTED RESULT...P revious above value was 75.8, verified on 06/16/19 at 04:45 by LRB . RBC (Bld) [#/Vol] disregard Critically abnormal 3.8 - 5.2 10*6/uL [place] Comment on above: CORRECTED RESULT...P revious above value was 3.98, verified on 06/16/19 at 04:45 by LRB . WBC (Bld) [#/Vol] disregard Critically abnormal 3.6 - 10.7 10*3/uL [place] Comment on above: CORRECTED RESULT...P revious above value was 3.7, verified on 06/16/19 at 04:45 by LRB . Test Performed by [facility], [address] [place] [address] [place] Comprehensive Metabolic Pane l w/ Reflex to MGon 06-16-2019 Albumin [Mass/Vol] 3.5 g/dL 3.5 - 5 g/dL [place] ALP [Catalytic activity/Vol] 167 U/L High 38 - 126 U/L [place] ALT [Catalytic activity/Vol] 28 U/L 13 - 69 U/L [place] Anion gap [Moles/Vol] 11 mmol/L [place] AST [Catalytic activity/Vol] 29 U/L 15 - 46 U/L [place] Bilirubin Ql (U) 0.7 mg/dL 0.2 - 1.3 mg/dL [place] Calcium [Mass/Vol] 8.6 mg/dL 8.4 - 10. 4 mg/dL [place] Chloride [Moles/Vol] 98 mmol/L 98 - 10 7 mmol/L [place] CO2 [Moles/Vol] 23 mmol/L 22 - 30 mmol/L [place] Creatinine [Mass/Vol] 0.87 mg/dL 0.52 - 1.25 mg/dL [place] EGFR IF NonAfrican [place] >60.0 >60 mL/min [place] Comment on above: Source- MDRD equatio n with creatinine calibration to IDMS(NKDEP) eGFR not recommended for drug dose adjustment GFR/1.73 sq M predicted among blacks MDRD (S/P/Bld) [Vol rate/Area] mL/min/{1.73_m2} >60 mL/min [place], [place] Glucose [Mass/Vol] 385 mg/dL High 70 - 100 mg/dL [place], [place] Interpretation and review of laboratory results Abnormal [place], [place] Potassium [Moles/Vol] 4.9 mmol/L 3.5 - 5.1 mmol/L [place] Protein [Mass/Vol] 6.5 g/dL 6.3 - 8.2 g/dL [place], [place] Sodium [Moles/Vol] 131 mmol/L Low 135 - 145 mmol/L [place], [place] Urea nitrogen [Mass/Vol] 31 mg/dL High 7 - 20 mg/dL [place] Test Performed by [facility], [facility] [place], [place] [id number] [place] [address] Hemoglobin A1Con 06-16-2019 eAG 240 mg/dL [place], [place] HbA1c (Bld) [Mass fraction] 10.0 % High 4 - 5.7 % [place], [place] Comment on above: --HgbA1C levels may not be accurate in patients who have renal disease, received recent blood transfusions, are anemic, or who have dyshemoglobinemia. Interpretation and review of laboratory results Abnormal [place] Test Performed by [facility], [facility] [address] [place], [place] POCT Glucoseon 06-16-2019 Glucose [Mass/Vol] 386 mg/dL High 70 - 100 mg/dL [place], [place] Comment on above: Test performed by gl ucose meter. Results may be 10%-15% lower than serum/plasma values. (CLIA ID [id number]) Interpretation and review of laboratory results Abnormal [place] Test Performed by [facility], [place] [address] [place], [place] Glucose [Mass/Vol] 287 mg/dL High 70 - 100 mg/dL [place], [place] Comment on above: Test performed by gl ucose meter. Results may be 10%-15% lower than serum/plasma values. (CLIA ID [id number]) Interpretation and review of laboratory results Abnormal [facility] Test Performed by [facility], [facility] [place] [address] [facility]- [place], [place] Glucose [Mass/Vol] 285 mg/dL High 70 - 100 mg/dL [facility]- [place], [place] Comment on above: Test performed by gl ucose meter. Results may be 10%-15% lower than serum/plasma values. (CLIA ID [id number]) Interpretation and review of laboratory results Abnormal [facility] Test Performed by [facility], [facility] [place] [address] [facility], [place] Glucose [Mass/Vol] 431 mg/dL High 70 - 100 mg/dL [facility], [place] Comment on above: Test performed by gl ucose meter. Results may be 10%-15% lower than serum/plasma values. (CLIA ID [id number]) Interpretation and review of laboratory results Abnormal [employer] Test Performed by [employer] [facility], [facility] [place] [address] [facility], [place] Glucose [Mass/Vol] 431 mg/dL High 70 - 100 mg/dL [facility], [place] Comment on above: Test performed by gl ucose meter. Results may be 10%-15% lower than serum/plasma values. (CLIA ID [id number]) Interpretation and review of laboratory results Abnormal [employer] [place], [place] Test Performed by [employer] [facility], [facility] [place] [address] [facility], [place] Vancomycin, Troughon 019 Vancomycin Tr 17.1 ug/mL 15 - 20 ug/mL [facility], [place] Comment on above: . Test Performed by [employer] [facility], [place] [address] [facility], [place] CBCon 06-15-2019 Erythrocyte distribution width (RBC) [Ratio] 22.9 % High 11.5 - 14.5 % [facility], [place] Hematocrit (Bld) [Volume fraction] 27.2 % Low 35 - 47 % [place], [place] Hemoglobin (Bld) [Mass/Vol] 8.8 g/dL Low 11.7 - 16 g/dL [place], [place] Interpretation and review of laboratory results Abnormal [place], [place] MCH (RBC) [Entitic mass] 24.1 pg Low 26 - 34 pg [place], [place] MCHC (RBC) [Mass/Vol] 32.2 % 32 - 36 % [place] MCV (RBC) [Entitic vol] 74.8 fL Low 79 - 98 fL [place], [place] Platelet mean volume (Bld) [Entitic vol] 7.8 fL 7.4 - 10.4 fL [place], [place] Platelets (Bld) [#/Vol] 353 10*3/uL 140 - 440 10*3/uL [place] RBC (Bld) [#/Vol] 3.64 10*6/uL Low 3.8 - 5.2 10*6/uL [place] WBC (Bld) [#/Vol] 6.6 10*3/uL 3.6 - 10.7 10*3/uL [place] Test Performed by [facility], [address] [place] [id number] [place] [address] Comprehensive Metabolic Pane l w/ Reflex to MGon 06-15-2019 Albumin [Mass/Vol] 3.4 g/dL Low 3.5 - 5 g/dL [place], [place] ALP [Catalytic activity/Vol] 168 U/L High 38 - 126 U/L [place] ALT [Catalytic activity/Vol] 27 U/L 13 - 69 U/L [place], [place] Anion gap [Moles/Vol] 10 mmol/L [place], [place] AST [Catalytic activity/Vol] 30 U/L 15 - 46 U/L [place], [place] Bilirubin Ql (U) 0.5 mg/dL 0.2 - 1.3 mg/dL [place], [place] Calcium [Mass/Vol] 8.7 mg/dL 8.4 - 10. 4 mg/dL [place], [place] Chloride [Moles/Vol] 100 mmol/L 98 - 10 7 mmol/L [place] CO2 [Moles/Vol] 25 mmol/L 22 - 30 mmol/L [place] Creatinine [Mass/Vol] 0.86 mg/dL 0.52 - 1.25 mg/dL [place], [place] EGFR IF NonAfrican [place] Verdean >60.0 >60 mL/min [place], [place] Comment on above: Source- MDRD equatio n with creatinine calibration to IDMS(NKDEP) eGFR not recommended for drug dose adjustment GFR/1.73 sq M predicted among blacks MDRD (S/P/Bld) [Vol rate/Area] mL/min/{1.73_m2} >60 mL/min [place], [place] Glucose [Mass/Vol] 281 mg/dL High 70 - 100 mg/dL [place], [place] Interpretation and review of laboratory results Abnormal [place], [place] Potassium [Moles/Vol] 4.7 mmol/L 3.5 - 5.1 mmol/L [place] Protein [Mass/Vol] 6.4 g/dL 6.3 - 8.2 g/dL [place], [place] Sodium [Moles/Vol] 135 mmol/L 135 - 145 mmol/L [place], [place] Urea nitrogen [Mass/Vol] 31 mg/dL High 7 - 20 mg/dL [place] Test Performed by [facility], [address] [place] [address] [place], [place] EKG 12 Leadon 06-15-2019 Robert, [facility] Incoming Cardiology Results From [facility] - 06/15/2019 5:33 PM EDT [facility] Test Date: 2019-06-14 Pat Name: Will Jacinto Department: 1A6 Room: 6125 Gender: F 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: 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 : 1965 Requested By: Order Number: [id number] Reading MD: Ezio Schmitt Measurements Intervals [place] Rate: 97 P: 50 HI: 169 QRS: -27 QRSD: 113 T: 50 QT: 363 QTc: 461 Interpretive Statements Sinus rhythm Low voltage, precordial leads Left ventricular hypertrophy ST elev, consider awmi Electronically Signed On 06-15-2019 17:32:44 EDT by Ezio Schmitt [employer] MARYAM [facility] Test Date: 2019-06-14 Pat Name: Will Jacinto Department: 1AH6 Room: [facility] Gender: F 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 Results may be 10%-15% lower than serum/plasma values. (CLIA ID [id number]) Interpretation and review of laboratory results Abnormal [employer] Test Performed by [employer], [address] [facility] [place] [address] [employer] [place] Glucose [Mass/Vol] 315 mg/dL High 70 - 100 mg/dL [facility] [place] Comment on above: Test performed by gl ucose meter. Results may be 10%-15% lower than serum/plasma values. (CLIA ID [id number]) Interpretation and review of laboratory results Abnormal [employer] Test Performed by [employer], [address] [place] [address] [facility] Glucose [Mass/Vol] 290 mg/dL High 70 - 100 mg/dL [facility] [place] Comment on above: Test performed by gl ucose meter. Results may be 10%-15% lower than serum/plasma values. (CLIA ID [id number]) Interpretation and review of laboratory results Abnormal [employer] Test Performed by [employer], [address] [place] [address] [employer] [place], [employer] Glucose [Mass/Vol] 414 mg/dL High 70 - 100 mg/dL [place], [place] Comment on above: Test performed by gl ucose meter. Results may be 10%-15% lower than serum/plasma values. (CLIA ID [id number]) Interpretation and review of laboratory results Abnormal [facility], [place] Test Performed by [facility], [place] [address] [place], [place] Glucose [Mass/Vol] 366 mg/dL High 70 - 100 mg/dL [place], [place] Comment on above: Test performed by gl ucose meter. Results may be 10%-15% lower than serum/plasma values. (CLIA ID [id number]) Interpretation and review of laboratory results Abnormal [facility], [place] Test Performed by [facility], [place] [address] [place], [place] Glucose [Mass/Vol] 357 mg/dL High 70 - 100 mg/dL [place], [place] Comment on above: Test performed by gl ucose meter. Results may be 10%-15% lower than serum/plasma values. (CLIA ID [id number]) Interpretation and review of laboratory results Abnormal [facility], [place] Test Performed by [facility], [facility] [place] [address] [place], [place] Add On Lab Teston 06-14-2019 Sodium [Moles/Vol] Accepted [place], [place] Comment on above: Specimen available & acceptable for analysis. Test Performed by [facility], [place] [address] [place], [place] Basic Metabolic Panelon Anion gap [Moles/Vol] 13 mmol/L [place] Calcium [Mass/Vol] 9.6 mg/dL 8.4 - 10. 4 mg/dL [place], [place] Chloride [Moles/Vol] 96 mmol/L Low 98 - 10 7 mmol/L [place], [place] CO2 [Moles/Vol] 27 mmol/L 22 - 30 mmol/L [place] Creatinine [Mass/Vol] 0.89 mg/dL 0.52 - 1.25 mg/dL [place], [place] EGFR IF NonAfrican [place] Verdean >60.0 >60 mL/min [place], [place] Comment on above: Source- MDRD equatio n with creatinine calibration to IDMS(NKDEP) eGFR not recommended for drug dose adjustment GFR/1.73 sq M predicted among blacks MDRD (S/P/Bld) [Vol rate/Area] mL/min/{1.73_m2} >60 mL/min [place] Glucose [Mass/Vol] 325 mg/dL High 70 - 100 mg/dL [place], [place] Interpretation and review of laboratory results Abnormal [place], [place] Potassium [Moles/Vol] 4.8 mmol/L 3.5 - 5.1 mmol/L [place], [place] Sodium [Moles/Vol] 135 mmol/L 135 - 145 mmol/L [place], [place] Urea nitrogen [Mass/Vol] 30 mg/dL High 7 - 20 mg/dL [place] Beta-Hydroxybutyrateon 06-14 Beta-Hydroxybutyrate 1.24 mg/dL 0.2 - 2 .81 mg/dL [place], [place] C-Reactive Proteinon 019 CRP [Mass/Vol] 30.7 mg/L High 0 - 6 mg/L [place], [place] Comment on above: . Interpretation and review of laboratory results Abnormal [place], [place] Test Performed by [facility], [address] [place] [id number] [place] [address] Hemogram (CBC) w/Auto Diffon 06-14-2019 Absolute Baso # 0.0 10*3/uL 0 - 0.2 10*3/uL [place], [place] Absolute Neut # 4.8 10*3/uL 1.8 - 7 10*3/uL [place], [place] Basophils/100 WBC (Bld) 0.5 % 0 - 2 % [place], [place] Eosinophils (Bld) [#/Vol] 0.1 10*3/uL 0 - 0.5 10*3/uL [place], [place] Eosinophils/100 WBC (Bld) 1.1 % 1 - 6 % [place], [place] Erythrocyte distribution width (RBC) [Ratio] 22.6 % High 11.5 - 14.5 % [place], [place] Granulocytes/100 WBC (Bld) 69.0 % 40 - 80 % [place], [place] Hematocrit (Bld) [Volume fraction] 30.2 % Low 35 - 47 % [place], [place] Hemoglobin (Bld) [Mass/Vol] 9.6 g/dL Low 11.7 - 16 g/dL [place], [place] Interpretation and review of laboratory results Abnormal [place], [place] Lymphocytes (Bld) [#/Vol] 1.5 10*3/uL 1 - 4.3 10*3/uL [place], [place] Lymphocytes/100 WBC (Bld) 20.9 % 20 - 40 % [place], [place] MCH (RBC) [Entitic mass] 23.8 pg Low 26 - 34 pg [place], [place] MCHC (RBC) [Mass/Vol] 31.7 % Low 32 - 36 % [place], [place] MCV (RBC) [Entitic vol] 75.1 fL Low 79 - 98 fL [place], [place] Monocytes (Bld) [#/Vol] 0.6 10*3/uL 0 - 0.8 10*3/uL [place], [place] Monocytes/100 WBC (Bld) 8.5 % 2 - 10 % [place], [place] Platelet mean volume (Bld) [Entitic vol] 7.8 fL 7.4 - 10.4 fL [place], [place] Platelets (Bld) [#/Vol] 396 10*3/uL 140 - 440 10*3/uL [place], [place] RBC (Bld) [#/Vol] 4.03 10*6/uL 3.8 - 5.2 10*6/uL [place], [place] WBC (Bld) [#/Vol] 7.0 10*3/uL 3.6 - 10.7 10*3/uL [place], [place] Test Performed by [facility], [address] [place] [address] [place], [place] Lactic Acid, Plasmaon 2018 Interpretation and review of laboratory results Abnormal [place], [place] Lactate [Moles/Vol] 3.7 mmol/L Critically high 0.7 - 2 mmol/L [place], [place] Comment on above: Repeated Test Performed by [facility], [facility] [place] [place] [id number] [place] [address] Otheron 06-14-2019 Test Performed by [facility], [facility] [place], [place] [id number] [place] [address] POCT Glucoseon 06-14-2019 Glucose [Mass/Vol] 325 mg/dL High 70 - 100 mg/dL [place], [place] Comment on above: Test performed by ucose meter. Results may be 10%-15% lower than serum/plasma values. (CLIA ID [id number]) Interpretation and review of laboratory results Abnormal [place], [place] Test Performed by [facility], [facility] [place] [place] [id number] [place] [address] Procalcitoninon 06-14-2019 Procalcitonin <0.10 <0.10 ng/mL [place], [place] Sodium [Moles/Vol] See Below [place], [place] Comment on above: PCT <0.50 = Low risk of severe sepsis and/or septic shock. PCT >2.00 = High risk of severe sepsis and/or septic shock. Test Performed by [facility], [facility] [place], [place] [id number] [place] [address] Protime-INRon 06-14-2019 INR Coag (PPP) [Relative time] 1.0 {INR} [place], [place] Comment on above: Recommended Anticoag ulant [...] [Time] 10.9 s 9 - 12 s [place], [place] Comment on above: . Test Performed by [facility], [address] [place] [address] [facility], [place] Sedimentation Rateon 019 Interpretation and review of laboratory results Abnormal [facility], MARYAM Sed Rate 65 mm/h High 0 - 20 mm/h [facility] [place], [place] Test Performed by [facility], [address] [place] [address] [facility], [place] TYPE AND SCREENon 06-14-2019 Sodium [Moles/Vol] O [facility] [place], [place] Sodium [Moles/Vol] Positive [facility] [place], [place] Comment on above: Test Performed by [facility], [address] [place] [address] Sodium [Moles/Vol] Negative [facility] [place], [place] Comment on above: Test Performed by [facility], [address] [place] [address] Test Performed by [facility], [address] [place] [address] [facility], [place]ARY[place] XR CHEST 1 VWon 06-14-2019 Robert, [facility] Incoming Radiology Results From [facility] - 06/14/2019 8:45 PM EDT Patient Name: WILL JACINTO ---Diagnostic Radiology--- Exam Date/Time 06/14/2019 20:33:50 EDT Exam CR Chest 1 View Frontal Ordering Physician [id number] GAUTAM Accession Number [id number] CPT4 Codes 57844 () Reason For Exam preop Report Portable [...] RISA Transcribed Date and Time: 06/14/2019 8:44 [place], [place] Patient Name: WILL ALVARADO ---Diagnostic Radiology--- Exam Date/Time 06/14/2019 20:33:50 EDT Exam CR Chest 1 View Frontal Ordering Physician [id number] MCDOWELL Accession Number [id number] CPT4 Codes 74136 () Reason For Exam preop Report Portable [...] RISA Transcribed Date and Time: 06/14/2019 8:44 [place], [place] XR FEMUR RIGHT (MIN 2 VIEWS) on 06-14-2019 [facility], [facility] Incoming Radiology Results From [facility] - 06/14/2019 11:58 PM EDT Patient Name: WILL JACINTO ---Diagnostic Radiology--- Exam Date/Time 06/14/2019 23:38:07 EDT Exam CR Femur 2+ Views Right n Ordering Physician SCOOTER MCCOLLUM Accession Number [id number] CPT4 Codes 10169 () Reason For Exam pain Report CLINICAL [...] JEFFREY Transcribed Date and Time: 06/14/2019 11:55 [place] Patient Name: WILL ALVARADO ---Diagnostic Radiology--- Exam Date/Time 06/14/2019 23:38:07 EDT Exam CR Femur 2+ Views Right n Ordering Physician SCOOTER MCCOLLUM Accession Number [id number] CPT4 Codes 78232 () Reason For Exam pain Report CLINICAL [...] JEFFREY Transcribed Date and Time: 06/14/2019 11:55 [place] XR FOOT RIGHT (MIN 3 VIEWS)o n 06-14-2019 Patient Name: WILL ALVARADO ---Diagnostic Radiology--- Exam Date/Time 06/14/2019 16:26:30 EDT Exam CR Foot Complete 3+ Views Right Ordering Physician MD ORTIZ DOUGALAS R. Accession Number [id number] CPT4 Codes 95034 () Reason For Exam R foot xray [...] midfoot neuropathic changes. Report Dictated on Workstation: [employer] --- Final --- Dictated: 06/14/2019 4:40 pm Dictating Physician: MD GREGORY ANTHONY J Signed Date and Time: 06/14/2019 4:51 pm Signed by: MD GREGORY ANTHONY J Transcribed Date and Time: 06/14/2019 4:40 [facility], [place] Robert, [facility] Incoming Radiology Results From [facility] - 06/14/2019 4:52 PM EDT Patient Name: WILL JACINTO ---Diagnostic Radiology--- Exam Date/Time 06/14/2019 16:26:30 EDT Exam CR Foot Complete 3+ Views Right Ordering Physician MD ANGEL, RENE Fontaine Accession Number [id number] CPT4 Codes 19980 () Reason For Exam R foot xray [...] J Transcribed Date and Time: 06/14/2019 4:40 [facility] 01-03-2019 CNOV Office Visit (PLWDMR ) -------- WILL JACINTO ([id number]) 1965 M Date Time Provider Department 01/03/19 [...] put on Avycaz. Prescription orders written on halfway paperwork Discussed with patient in detail Modify [...] capsules by mouth every 6 hours. Acidophilus-Pectin, [place] 25 million cell -100 mg tab Take [...] reviewed Imaging data: reviewed Jayson Hawthorne MD [phone] 01/03/2019 2:22 PM Roselia Sandoval, RN, RN [...] lower leg Continue current wound care from [place] Compression: ? Cast cover may be purchased [...] following changes to the Wound Center at [phone] or go to the Emergency Department: ? [...] CULTURE AND GRAM STAIN [SQWCUL] Order #: [id number]. #:[id number] WOUND CULTURE AND GRAM STAIN [SQWCUL] Order #: [id number]. #:[id number] Prescriptions as of 01/03/2019 Sig: DOXYCYCLINE MONOHYDRATE [...] lower leg Continue current wound care from [place] Compression: ? Cast cover may be [...] following changes to the Wound Center at [phone] or go to the Emergency Department: ? [...] Status:Closed by DEBBIE CASEY on 01/04/19 [facility] PROGRESSon 01-03-2019 Protein mass conc HNO ID: [id number] Author: Jayson Hawthorne MD Service: (none) Author [...] put on Avycaz. Prescription orders written on halfway paperwork Discussed with patient in detail Modify [...] capsules by mouth every 6 hours. Acidophilus-Pectin, [place] 25 million cell -100 mg tab Take [...] reviewed Imaging data: reviewed Jayson Hawthorne MD [phone] 01/03/2019 2:22 PM [facility] Wound Culture/Stainon 2018 Wound Culture/Stain Sp. [...] F Ertapenem SUSCEPTIBLE <=0.5 F Critically abnormal [facility] Comment on above: Performed By: #### W CUL ####[facility] [place], [place] [phone] Wound Culture/Stain Sp. Request/Comment: - Eswab Smear [...] on --> ABNORMAL ALERT 01/03/2019 AT 1500 ([id number]) --> ABNORMAL ALERT Many --> ABNORMAL ALERT Providencia stuartii --> ABNORMAL ALERT Refer to specimen collected on --> ABNORMAL ALERT 01/03/2019 AT 1500 ([id number]) --> ABNORMAL ALERT Many --> ABNORMAL ALERT Enterococcus faecalis --> ABNORMAL ALERT Cephalosporins, clindamycin, and TMP-SMX are not effective for the treatment of enterococcal infections. --> ABNORMAL ALERT Rare skin dorinda ORGANISM: Enterococcus faecalis METHOD: Minimum inhibitory concentration(Vitek) Antibiotic Interp TULIO Status Ampicillin SUSCEPTIBLE <=2 F Vancomycin SUSCEPTIBLE 1 F Critically [facility] Comment on above: Performed By: #### W CUL ####[facility] [place], [place] [phone] CNOVon 12-27-2018 CNOV Office Visit (PLWDMR ) -------- WILL JACINTO ([id number]) 1965 M Date Time Provider Department 12/27/18 [...] doing debridement periodically. He was admitted to [facility] both in September as well as October 2018. He is not currently on any antibiotics. MEDICATIONS: ARIPiprazole (ABILIFY) 10 mg tablet Take 10 mg by mouth once daily. acetaminophen 325 mg cap Take 2 capsules by mouth every 6 hours. Acidophilus-Pectin, [place] 25 million cell -100 mg tab Take [...] reviewed Imaging data: reviewed Jayson Hawthorne MD [phone] 12/27/2018 2:07 PM Debbie Casey, RN, RN [...] toes to 1' below the knee. MARY WRAP/Tubi-office machine inspector: Foot is warm and pink before and [...] dressing twice daily Apply a size G tubi-office machine inspector from behind the toes to 1" below [...] following changes to the Wound Center at [phone] or go to the Emergency Department: ? [...] the wound center. 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 [...] toes to 1' below the knee. MARY WRAP/Tubi-office machine inspector: Foot is warm and pink before and [...] Status:Closed by DEBBIE CASEY on 12/27/18 [facility] PROGRESSon 12-27-2018 Protein mass conc HNO ID: [id number] Author: Jayson Hawthorne MD Service: (none) Author [...] doing debridement periodically. He was admitted to [facility] both in September as well as October 2018. He is not currently on any antibiotics. MEDICATIONS: ARIPiprazole (ABILIFY) 10 mg tablet Take 10 mg by mouth once daily. acetaminophen 325 mg cap Take 2 capsules by mouth every 6 hours. Acidophilus-Pectin, [place] 25 million cell -100 mg tab Take [...] reviewed Imaging data: reviewed Jayson Hawthorne MD [phone] 12/27/2018 2:07 [facility] Office Visit (PLWDMR ) -------- WILL JACINTO ([id number]) 1965 M Date Time Provider Department 07/12/18 [...] capsules by mouth every 6 hours. Acidophilus-Pectin, [place] 25 million cell -100 mg tab Take [...] reviewed Imaging data: reviewed Jayson Hawthorne MD [phone] 07/12/2018 2:03 PM Priscila Vazquez [place], [place] [...] and kerlix. Size G Tubigrip applied. MARY WRAP/Tubi-office machine inspector: Foot is warm and pink before and [...] following changes to the Wound Center at [phone] or go to the Emergency Department: ? 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 Fever or chills ? Increased drainage ? Green or yellow drainage ? Foul odor ? Increased pain ? Hardness around the wound ? Redness, warmth or swelling of the surrounding tissue ? Color change to the wound PLAN: Return to the wound center in [address] Gelnn Hawthorne MD/[facility] Visit Notes: >> ZINA Berman Ma Jul [...] and kerlix. Size G Tubigrip applied. MARY WRAP/Tubi-office machine inspector: Foot is warm and pink before and [...] by JAYSON HAWTHORNE MD on 07/15/18 [facility] PROGRESSon 07-12-2018 Protein mass conc HNO ID: [id number] Author: Jayson Hawthorne MD Service: (none) Author [...] capsules by mouth every 6 hours. Acidophilus-Pectin, [place] 25 million cell -100 mg tab Take [...] reviewed Imaging data: reviewed Jayson Hawthorne MD [phone] 07/12/2018 2:03 PM [facility] 06-28-2018 [facility] Office Visit (PLWDMR ) -------- WILL JACINTO ([id number]) 1965 M Date Time Provider Department 06/28/18 [...] capsules by mouth every 6 hours. Acidophilus-Pectin, [place] 25 million cell -100 mg tab Take [...] following changes to the Wound Center at [phone] or go to the Emergency Department: ? [...] following changes to the Wound Center at [phone] or go to the Emergency Department: ? [...] by TERRIE KWAN MD on 06/30/18 [facility] PROGRESSon 06-28-2018 Protein mass conc HNO ID: [id number] Author: Terrie Kwan Service: (none) Author Type: [...] capsules by mouth every 6 hours. Acidophilus-Pectin, [place] 25 million cell -100 mg tab Take [...] Imaging data: reviewed Terrie Kwan [facility] ([facility] ) -------- WILL JACINTO ([id number]) 1965 M Date Time Provider Department 06/14/18 [...] PICC line to be removed by the halfway Continue compression for edema and lymphedema management Continue aggressive wound care He is at a halfway for wound healing and will go home [...] reviewed Imaging data: reviewed Jayson Hawthorne MD [phone] 06/14/2018 1:56 PM Debbie Casey RN, RN [...] weeks PICC is to be removed per halfway EDUCATION: The patient/family was instructed how to [...] following changes to the Wound Center at [phone] or go to the Emergency Department: ? Fever or chills ? Increased drainage ? Green or yellow drainage ? Foul odor ? Increased pain ? Hardness around the wound ? Redness, warmth or swelling of the surrounding tissue ? Color change to the wound PLAN: Return to the wound center to see ID in 2 weeks PICC is to be removed per halfway Dr. 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 Fever or chills ? Increased drainage ? Green or yellow drainage ? Foul odor ? Increased pain ? Hardness around the wound ? Redness, warmth or swelling of the surrounding tissue ? Color change to the wound PLAN: Return to the wound center to see ID in 2 weeks PICC is to be removed per halfway Dr. Marine DUMONT/thiago Visit Notes: >> Debbie [...] weeks PICC is to be removed per halfway EDUCATION: The patient/family was instructed how to [...] Status:Closed by LURDES CARMONA on 06/16/18 [facility] PROGRESSon 06-14-2018 Protein mass conc HNO ID: [id number] Author: Jayson Hawthorne MD Service: (none) Author Type: Physician Type: Progress Notes Filed: 06/16/2018 11:23 AM Note Text: INFECTIOUS DISEASE WOUND CENTER NOTE Patient Name: Will Jacinto Date: 06/14/2018 ASSESSMENT: R 5th toe OM PsAG and diphtheroids infection Leg lymphedema Obesity DM2 PLAN: Stop meropenem She has completed 6 weeks of treatment PICC line to be removed by the halfway Continue compression for edema and lymphedema management Continue aggressive wound care He is at a halfway for wound healing and will go home [...] reviewed Imaging data: reviewed Jayson Hawthorne MD [phone] 06/14/2018 1:56 PM Normal [facility] Culture Anaerobeon 06-27-201 8 Culture Anaerobe Specimen Comments: RIGHT FIFTH METATARSALCulture Observations: No anaerobes isolatedSusceptibility Data: --- [facility] Comment on above: Order Comment: CONTR AST PER RADIOLOGIST DISCRETION. R/o abscess, OM Performed By: #### C HARLAN ####[facility] [place] [address] Culture Wound Aerobic w/ Gra chika Rosales 05-04-2018 Culture Wound Aerobic w/ Gram St Specimen Comments: RIGHT FIFTH METATARSALCulture Exam: ---------1. Corynebacterium striatum Small numbers ofSusceptibility Data: --- [facility] Comment on above: Order Comment: CONTR AST PER RADIOLOGIST DISCRETION. R/o abscess, OM Result Comment: [facility] eptibility testing not routinely performed on this isolate. Performed By: #### C XWND ####[facility] [place] [address] Surgical Pathology Depar tmenton 05-04-2018 [facility] Surgical Pathology Department Name WILL JACINTO Pathologist: VIRGIL JIMENEZ, MDDate of Procedure: 05/04/2018Date Received: 05/04/2018Date Reported 05/12/2018Submitting Physician: IWONA NEWSOMEocation: APMISC Copy To/Referring/Attending:Gina GARNER MD Other External # [id number] FINAL DIAGNOSISFIFTH METATARSAL, RIGHT, AMPUTATION: --MARROW WITH CHRONIC OSTEOMYELITIS AND FOCAL HEMATOPOIESIS--BONE AND CARTILAGE WITH DEGENERATIVE CHANGES Electronically Signed Out By VIRGIL JIMENEZ MD/Johnnie the signature on this report, the individual or group listed as making theFinal Interpretation/Diagnosis certifies that they have reviewed this case. Clinical History:Osteomyelitits 5th metatarsal right footSpecimens Submitted As:A: RIGHT FIFTH METATARSAL Other Case Numbers [id number] Description:A. Received in formalin, labeled with the patient's name and hospital numberand right fifth metatarsal is a single fragment of bone measuring 4.3 x 3.1 x2.2 cm. Airline Captain sections of the specimen are submitted followingdecalcification .HXRhxr/05/06/2018 Normal [facility] Comment on above: Performed By: #### U HCS ####[facility] Surgical Pathology [id number] [place] [address] Ferritinon 04-30-2018 Ferritin 138 ng/mL Normal 8-252 [facility] Comment on above: Performed By: #### B 12, FERRTN ####[place] [address] Iron with TIBCon 04-30-2018 % Saturation 19 % Normal 16-46 [facility] Comment on above: Performed By: #### I RONIBC ####[place] [address] Iron 43 ug/dL Low 50-170 [facility] Comment on above: Performed By: #### I RONIBC ####[place] [address] TIBC 222 ug/dL Low 250-450 [facility] Comment on above: Performed By: #### I RONIBC ####[place] [id number] Occult Blood Stool 1-3on [facility] Occult Blood Normal NEGATIVE [facility] Comment on above: Order Comment: CONTR AST PER RADIOLOGIST DISCRETION. R/o abscess, OM Performed By: #### O CBLDST ####[place] [address] Occult Blood Negative Normal NEGATIVE [facility] Comment on above: Order Comment: CONTR AST PER RADIOLOGIST DISCRETION. R/o abscess, OM Performed By: #### O CBLDST ####[place] [address] Vitamin B12on 04-30-2018 Cobalamins (Vitamin B12) 365.0 pg/mL Normal 193.0-986.0 [facility] Comment on above: Performed By: #### B 12, FERRTN ####[place] [id number] MRI Low Ext RT Non-JT w/wo c ontraston 04-29-2018 MRI Low Ext RT Non-JT w/wo contrast Examination:MRI right footClinical Indication:Pain, swelling and drainage, multiple ulcersComparison:NoneFin dings:Multiplanar multisequence high field strength MRI images were obtained throughthe right foot prior to and after 15 mL Gadavist intravenous gadolinium.Examination is moderately limited by motion artifact and slightly gcjrdsumnvtpxzza-rc-sdsq e. Unable to utilize the dedicated foot [...] of the fifth metatarsal.Report Dictated on Workstation: [id number] ed by: Shayy Gregory: 04/29/2018 14:18Read by: Sofia RAY: 04/29/2018 14:18 [facility] Comment on above: Order Comment: CONTR [...] assess given therecent surgeryReport Dictated on Workstation: [id number] by: Garima Love: 04/28/2018 17:30Read by: Sofia PATEL: 04/28/2018 17:30 [facility] Culture Anaerobeon 8 Culture Anaerobe Culture Observations: No anaerobes isolatedSusceptibility Data: --- [facility] Comment on above: Performed By: #### C HARLAN ####[facility] [place] [address] Culture Wound Aerobic w/ Gra m Bobby 03-18-2018 Culture Wound Aerobic w/ Gram St Specimen Comments: BoneCulture Observations: Rare colonies of normal skin dorinda (diphtheroids)Direct Exam: ---------No WBCs seenNo organisms seenSusceptibility Data: --- [facility] Comment on above: Order Comment: TULIO p erformed at additional charge whenindicated Performed By: #### C XWND ####Nati [facility] [place], [place] [id number] [facility] Surgical Pathology Depar tmenton 03-18-2018 [facility] Surgical Pathology Department Name WILL JACINTO Pathologist: EVELYNE NUNEZate of Procedure: 03/18/2018Date Received: 03/18/2018Date Reported 03/29/2018Submitting Physician: DILLON NEWSOMEMLocation: APMISC Copy To/Referring/Attending:Gina GARNER MD Other External # [id number] FINAL DIAGNOSISBONE, RIGHT FOOT, EXCISION: --CHRONIC OSTEOMYELITIS Electronically Signed Out By VIRGIL JIMENEZ MD/Johnnie the signature on this report, the individual or group listed as making theFinal Interpretation/Diagnosis certifies that they have reviewed this case. Clinical History:OsteomylitisSpec imens Submitted As:A: BONE RIGHT FOOT Other Case Numbers [id number] Description:Received in formalin, labeled with the patient's name and hospital number and"bone right foot", is a bone measuring 2.7 x 0.7 x 0.7 cm. Representativesections are submitted in 2 cassettes following decalcification.DJOSumma ry of Cassettes:Specimen Label SiteA 1 resection margin 2 representatived/ 018 Normal [facility] Comment on above: Performed By: #### U [facility] ####[facility] Surgical Pathology [id number] [place] [address] [place] [address] XR Chest Mobile 1 viewon XR Chest [...] mildcongestive heart failure/fluid overload.Report Dictated on Workstation: [id number] ated by: Nay Ovalles: 03/18/2018 14:29Read by: SERGIO OVALLES, MDDate: 03/18/2018 14:29 Normal [facility] Iron with TIBCon 03-16-2018 % Saturation 25 % Normal 16-46 [facility] Comment on above: Performed By: #### I RONIBC ####[facility] [place] [address] Iron 65 ug/dL Normal 50-170 [facility] Comment on above: Performed By: #### I RONIBC ####[facility] [place] [address] TIBC 258 ug/dL Normal 250-450 [facility] Comment on above: Performed By: #### I RONIBC ####[address] [address] MRI Low Ext RT Non-Jt wo con [...] 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.Report Dictated on Workstation: [id number] ated by: Alonzo GregoryOn: 03/16/2018 10:41Read by: Sofia RAY: 03/16/2018 10:41 Normal [facility] Comment on above: Order Comment: CONTR AST PER RADIOLOGIST DISCRETION Occult Blood Stool 1-3on Occult Blood Normal NEGATIVE [facility] Comment on above: Order Comment: x1 Performed By: #### O CBLDST ####[place] [address] Occult Blood Negative Normal NEGATIVE [facility] Comment on above: Order Comment: x1 Performed By: #### O CBLDST ####[address] [address] XR Foot Right complete 3 plu s [...] soft tissue gas collection.Report Dictated on Workstation: [id number] laura by: Nay Muniz: 03/15/2018 23:44Read by: SERGIO MUNIZ, EVELYNEate: 03/15/2018 23:44 [facility] Comment on above: Order Comment: R/o O M Culture Anaerobeon 8 Culture Anaerobe Specimen Comments: RIGHT FOOT SOFT TISSCulture Exam: ---------1. anaerobic gram positive cocci Small numbers ofSusceptibility Data: --- [facility] Comment on above: Order Comment: AEROB IC/ANAEROBIC CULTURES OF RIGHT FOOT SOFT TISS Result Comment: (TULIO s not performed on anaerobes) Performed By: #### C HARLAN ####Nati [facility], [place] [address] Culture Wound Aerobic w/ Gra m Ston 02-04-2018 Culture Wound Aerobic w/ Gram St Specimen Comments: RIGHT FOOT SOFT TISSCulture Observations: Small numbers of mixed enteric dorinda and mixed skin dorinda- more than 3 organisms with none predominant.No Staphylococcus aureus, Pseudomonas aeruginosa or beta Streptococcus isolatedDirect Exam: ---------No WBCs seenNo organisms seenSusceptibility Data: --- [facility] Comment on above: Order Comment: AEROB IC/ANAEROBIC CULTURES OF RIGHT FOOT SOFT TISS Performed By: #### C MANJU ####Nati [facility] [place], [place] [address] MRI Low Ext RT Non-JT w/wo javier [facility] 02-02-2018 MRI Low Ext RT [...] clinical concern of osteomyelitis.Report Dictated on Workstation: [id number] ated by: Irma Barragan: 02/03/2018 12:13Read by: IFTIKHAR BARRAGAN, EVELYNEate: 02/03/2018 12:13 [facility] Comment on above: Order Comment: CONTR [...] d soft tissue swelling.Report Dictated on Workstation: [id number] ated by: Nay Muniz: 02/02/2018 15:32Read by: SERGIO MUNIZ, MDDate: 02/02/2018 15:32 [facility] Comment on above: Order Comment: R/o O M Vital Signs Date Time Vital Sign Value Performing Clinician Facility 07-11-2025 00:48-0400 Diastolic blood pressure 86 mm[Hg] Hermes Issa MD Work Phone: [facility] 07-11-2025 00:48-0400 Heart rate 72 /min Hermes Issa MD Work Phone: [facility] 07-11-2025 00:48-0400 Respiratory rate 18 /min Hermes Issa MD Work Phone: [facility] 07-11-2025 00:48-0400 SaO2% (BldA) [Mass fraction] 93 % Hermes Issa MD Work Phone: [facility] 07-11-2025 00:48-0400 Systolic blood pressure 147 mm[Hg] Hermes Issa MD Work Phone: [facility] 07-10-2025 15:56-0400 Body height 167.6 cm Hermes Issa MD Work Phone: [facility] 07-10-2025 15:56-0400 Body mass index (BMI) [Ratio] 53.42 kg/m2 Hermes Issa MD Work Phone: [facility] 07-10-2025 15:56-0400 Body temperature 98.4 [degF] Hermes Issa MD Work Phone: [facility] 07-10-2025 15:56-0400 Body weight 150.14 kg Hermes Issa MD Work Phone: [facility] 06-07-2025 13:25-0400 Diastolic blood pressure 71 mm[Hg] Farhad Chavez MD Work Phone: [facility] 06-07-2025 13:25-0400 Heart rate 77 /min Farhad Chavez MD Work Phone: [facility] 06-07-2025 13:25-0400 Respiratory rate 18 /min Farhad Chavez MD Work Phone: [facility] 06-07-2025 13:25-0400 SaO2% (BldA) [Mass fraction] 95 % Farhad Chavez MD Work Phone: [facility] 06-07-2025 13:25-0400 Systolic blood pressure 143 mm[Hg] Farhad Chavez MD Work Phone: [facility] 06-07-2025 11:35-0400 Body temperature 97 [degF] Farhad Chavez MD Work Phone: [facility] 04-06-2025 08:50-0400 Body height 167.6 cm Kaushal Schultz PA-C Work Phone: [facility] 04-06-2025 08:50-0400 Body mass index (BMI) [Ratio] 48.1 kg/m2 Gunner Stall PA-C Work Phone: [employer] 04-06-2025 08:50-0400 Body weight 135.17 kg Gunner Stall PA-C Work Phone: [facility] 04-06-2025 08:50-0400 Diastolic blood pressure 72 mm[Hg] Gunner Stall PA-C Work Phone: [facility] 04-06-2025 08:50-0400 Heart rate 86 /min Gunner Stall PA-C Work Phone: [facility] 04-06-2025 08:50-0400 Systolic blood pressure 114 mm[Hg] Gunner Stall PA-C Work Phone: [employer] 02-01-2025 09:50-0400 Body height 167.6 cm [employer] FLEET ADMINISTRATIVE ASSISTANT - PROSTHODONTIST/EDUCATOR Work Phone: [facility] 02-01-2025 09:50-0400 Body mass index (BMI) [Ratio] 48.1 kg/m2 [employer] FLEET ADMINISTRATIVE ASSISTANT - PROSTHODONTIST/EDUCATOR Work Phone: [facility] 02-01-2025 09:50-0400 Body temperature 97 [degF] [employer] FLEET ADMINISTRATIVE ASSISTANT - PROSTHODONTIST/EDUCATOR Work Phone: [facility] 02-01-2025 09:50-0400 Body weight 135.17 kg [employer] FLEET ADMINISTRATIVE ASSISTANT - PROSTHODONTIST/EDUCATOR Work Phone: [facility] 02-01-2025 09:50-0400 Diastolic blood pressure 82 mm[Hg] [employer] FLEET ADMINISTRATIVE ASSISTANT - PROSTHODONTIST/EDUCATOR Work Phone: [facility] 02-01-2025 09:50-0400 Heart rate 76 /min [employer] FLEET ADMINISTRATIVE ASSISTANT - PROSTHODONTIST/EDUCATOR Work Phone: [facility] 02-01-2025 09:50-0400 Respiratory rate 18 /min [employer] FLEET ADMINISTRATIVE ASSISTANT - PROSTHODONTIST/EDUCATOR Work Phone: [facility] 02-01-2025 09:50-0400 SaO2% (BldA) [Mass fraction] 97 % [employer] FLEET ADMINISTRATIVE ASSISTANT - PROSTHODONTIST/EDUCATOR Work Phone: [facility] 02-01-2025 09:50-0400 Systolic blood pressure 124 mm[Hg] Alejandro Mandel APRN - PROSTHODONTIST/EDUCATOR Work Phone: [facility] 01-01-2025 11:26-0500 Body height 167.6 cm Margo Guerrero FLEET ADMINISTRATIVE ASSISTANT - PROSTHODONTIST/EDUCATOR Work Phone: [facility] 01-01-2025 11:26-0500 Body mass index (BMI) [Ratio] 48.1 kg/m2 Margo Guerrero FLEET ADMINISTRATIVE ASSISTANT - PROSTHODONTIST/EDUCATOR Work Phone: [facility] 01-01-2025 11:26-0500 Body weight 135.17 kg Margo Guerrero FLEET ADMINISTRATIVE ASSISTANT - PROSTHODONTIST/EDUCATOR Work Phone: [facility] 01-01-2025 11:26-0500 Diastolic blood pressure 62 mm[Hg] Margo Guerrero FLEET ADMINISTRATIVE ASSISTANT - PROSTHODONTIST/EDUCATOR Work Phone: [facility] 01-01-2025 11:26-0500 Heart rate 72 /min Margo Guerrero FLEET ADMINISTRATIVE ASSISTANT - PROSTHODONTIST/EDUCATOR Work Phone: [facility] 01-01-2025 11:26-0500 Systolic blood pressure 128 mm[Hg] Margo Guerrero FLEET ADMINISTRATIVE ASSISTANT - PROSTHODONTIST/EDUCATOR Work Phone: [facility] 12-21-2024 08:04-0500 Body height 167.6 cm Wanda Johnson FLEET ADMINISTRATIVE ASSISTANT - PROSTHODONTIST/EDUCATOR Work Phone: [facility] 12-21-2024 08:04-0500 Body mass index (BMI) [Ratio] 51.65 kg/m2 Wanda Johnson FLEET ADMINISTRATIVE ASSISTANT - PROSTHODONTIST/EDUCATOR Work Phone: [facility] 12-21-2024 08:04-0500 Body weight 145.15 kg Wanda Cmer FLEET ADMINISTRATIVE ASSISTANT - PROSTHODONTIST/EDUCATOR Work Phone: [facility] 12-21-2024 08:04-0500 Diastolic blood pressure 69 mm[Hg] Wanda Cmer FLEET ADMINISTRATIVE ASSISTANT - PROSTHODONTIST/EDUCATOR Work Phone: [facility] 12-21-2024 08:04-0500 Heart rate 78 /min Wanda Cmer FLEET ADMINISTRATIVE ASSISTANT - PROSTHODONTIST/EDUCATOR Work Phone: [facility] 12-21-2024 08:04-0500 Systolic blood pressure 137 mm[Hg] Wanda Johnson FLEET ADMINISTRATIVE ASSISTANT - PROSTHODONTIST/EDUCATOR Work Phone: [facility] 12-07-2024 12:53-0500 Body temperature 97.59 [degF] Lilo Rizo MD Work Phone: [facility] 12-07-2024 12:53-0500 Diastolic blood pressure 80 mm[Hg] Lilo Rizo MD Work Phone: [facility] 12-07-2024 12:53-0500 Heart rate 82 /min Lilo Rizo MD Work Phone: [facility] 12-07-2024 12:53-0500 Systolic blood pressure 139 mm[Hg] Lilo Rizo MD Work Phone: [facility] 11-14-2024 10:09-0500 Body height 167.6 cm Asuncion Black FLEET ADMINISTRATIVE ASSISTANT - PROSTHODONTIST/EDUCATOR Work Phone: [facility] 11-14-2024 10:09-0500 Body temperature 97.2 [degF] Asuncion Black FLEET ADMINISTRATIVE ASSISTANT - PROSTHODONTIST/EDUCATOR Work Phone: [facility] 11-14-2024 10:09-0500 Diastolic blood pressure 79 mm[Hg] Asuncion Black FLEET ADMINISTRATIVE ASSISTANT - PROSTHODONTIST/EDUCATOR Work Phone: [facility] 11-14-2024 10:09-0500 Heart rate 83 /min Asuncion Black FLEET ADMINISTRATIVE ASSISTANT - PROSTHODONTIST/EDUCATOR Work Phone: [facility] 11-14-2024 10:09-0500 Systolic blood pressure 140 mm[Hg] Asuncion Black FLEET ADMINISTRATIVE ASSISTANT - PROSTHODONTIST/EDUCATOR Work Phone: [facility] 11-12-2024 22:42-0500 Body temperature 98.6 [degF] Virgil Mederos MD Work Phone: [facility] 11-12-2024 22:42-0500 Diastolic blood pressure 68 mm[Hg] Virgil Mederos MD Work Phone: [facility] 11-12-2024 22:42-0500 Heart rate 86 /min Virgil Mederos MD Work Phone: [facility] 11-12-2024 22:42-0500 Respiratory rate 16 /min Virgil Mederos MD Work Phone: [facility] 11-12-2024 22:42-0500 SaO2% (BldA) [Mass fraction] 96 % Virgil Mederos MD Work Phone: [facility] 11-12-2024 22:42-0500 Systolic blood pressure 144 mm[Hg] Virgil Mederos MD Work Phone: [facility] 11-10-2024 11:07-0500 Body height 167.6 cm Asuncion Valencia FLEET ADMINISTRATIVE ASSISTANT - PROSTHODONTIST/EDUCATOR Work Phone: [facility] 11-10-2024 11:07-0500 Body temperature 97.3 [degF] Asuncion Erik FLEET ADMINISTRATIVE ASSISTANT - PROSTHODONTIST/EDUCATOR Work Phone: [facility] 11-10-2024 11:07-0500 Diastolic blood pressure 81 mm[Hg] Asuncion Valencia FLEET ADMINISTRATIVE ASSISTANT - PROSTHODONTIST/EDUCATOR Work Phone: [facility] 11-10-2024 11:07-0500 Heart rate 83 /min Asuncion Valencia FLEET ADMINISTRATIVE ASSISTANT - PROSTHODONTIST/EDUCATOR Work Phone: [facility] 11-10-2024 11:07-0500 Systolic blood pressure 142 mm[Hg] Asuncion Valencia FLEET ADMINISTRATIVE ASSISTANT - PROSTHODONTIST/EDUCATOR Work Phone: [facility] 10-24-2024 14:17-0500 Body temperature 96.91 [degF] Vicente Mixon MD Work Phone: [facility] 10-24-2024 13:39-0500 Diastolic blood pressure 83 mm[Hg] Vicente Mixon MD Work Phone: [facility] 10-24-2024 13:39-0500 Heart rate 64 /min Vicente Mixon MD Work Phone: [employer] [facility] 10-24-2024 13:39-0500 Respiratory rate 16 /min Vicente Mixon MD Work Phone: [employer] [facility] 10-24-2024 13:39-0500 SaO2% (BldA) [Mass fraction] 98 % Vicente Mixon MD Work Phone: [employer] [facility] 10-24-2024 13:39-0500 Systolic blood pressure 123 mm[Hg] Vicente Mixon MD Work Phone: [facility] 10-23-2024 13:55-0500 SaO2% (BldA) [Mass fraction] 93 % Dontrell Glozman DO Work Phone: [facility] 10-23-2024 08:14-0500 Body temperature 97.7 [degF] Dontrell Glozman DO Work Phone: [employer] [facility] 10-23-2024 08:14-0500 Diastolic blood pressure 54 mm[Hg] Dontrell Glozman DO Work Phone: [facility] 10-23-2024 08:14-0500 Heart rate 85 /min Dontrell Glozman DO Work Phone: [facility] 10-23-2024 08:14-0500 Respiratory rate 20 /min Dontrell Glozman DO Work Phone: [employer] 10-23-2024 08:14-0500 Systolic blood pressure 127 mm[Hg] Dontrell Glozman DO Work Phone: [facility] 10-22-2024 13:16-0500 Body height 167.6 cm Dontrell Glozman DO Work Phone: [facility] 10-18-2024 21:04-0500 Body mass index (BMI) [Ratio] 51.65 kg/m2 Dontrell Glozman DO Work Phone: [employer] 10-18-2024 21:04-0500 Body weight 145.15 kg Dontrell Glozman DO Work Phone: [facility] 02-11-2024 09:55-0400 Body height 167.6 cm Herber Palmerson FLEET ADMINISTRATIVE ASSISTANT - PROSTHODONTIST/EDUCATOR Work Phone: [facility] 02-11-2024 09:55-0400 Body mass index (BMI) [Ratio] 46.83 kg/m2 Herber Ramos APRN - PROSTHODONTIST/EDUCATOR Work Phone: [facility] 02-11-2024 09:55-0400 Body weight 131.54 kg Herber Ramos APRN - PROSTHODONTIST/EDUCATOR Work Phone: [facility] 02-11-2024 09:55-0400 Diastolic blood pressure 78 mm[Hg] Herber Ramos APRN - PROSTHODONTIST/EDUCATOR Work Phone: [facility] 02-11-2024 09:55-0400 Heart rate 79 /min Herber Ramos APRN - PROSTHODONTIST/EDUCATOR Work Phone: [facility] 02-11-2024 09:55-0400 Respiratory rate 14 /min Herber Ramos APRN - PROSTHODONTIST/EDUCATOR Work Phone: [facility] 02-11-2024 09:55-0400 SaO2% (BldA) [Mass fraction] 99 % Herber Ramos APRN - PROSTHODONTIST/EDUCATOR Work Phone: [facility] Comment on above: 02-11-2024 09:55-0400 Systolic blood pressure 131 mm[Hg] Herber Ramos APRN - PROSTHODONTIST/EDUCATOR Work Phone: [facility] 01-27-2024 18:55-0400 Body height 167.6 cm Fermin Nesheim DO Work Phone: [facility] 01-27-2024 18:55-0400 Body mass index (BMI) [Ratio] 46.81 kg/m2 Fermin Nesheim DO Work Phone: [facility] 01-27-2024 18:55-0400 Body temperature 97.59 [degF] Fermin Nesheim DO Work Phone: [facility] 01-27-2024 18:55-0400 Body weight 131.54 kg Fermin Nesheim DO Work Phone: [facility] 01-27-2024 18:55-0400 Diastolic blood pressure 63 mm[Hg] Ferm[facility] 01-27-2024 18:55-0400 Heart rate 78 /min Fermin Nesheim DO Work Phone: [facility] 01-27-2024 18:55-0400 Respiratory rate 18 /min Fermin Nesheim DO Work Phone: [facility] 01-27-2024 18:55-0400 SaO2% (BldA) [Mass fraction] 99 % Fermin Nesheim DO Work Phone: [facility] 01-27-2024 18:55-0400 Systolic blood pressure 155 mm[Hg] Fermin Nesheim DO Work Phone: [facility] 01-26-2024 21:29-0400 Body height 167.6 cm Art Zeng DO Work Phone: [facility] 01-26-2024 21:29-0400 Body mass index (BMI) [Ratio] 46.81 kg/m2 Art Peraltaaci DO Work Phone: [facility] 01-26-2024 21:29-0400 Body weight 131.54 kg Art Peraltaaci DO Work Phone: [facility] 01-26-2024 21:28-0400 Body temperature 97.9 [degF] Art Kathrynaci DO Work Phone: [facility] 01-26-2024 21:28-0400 Diastolic blood pressure 63 mm[Hg] Art Kathrynaci DO Work Phone: [facility] 01-26-2024 21:28-0400 Heart rate 83 /min Art Peraltaaci DO Work Phone: [facility] 01-26-2024 21:28-0400 Respiratory rate 16 /min Art Peraltaaci DO Work Phone: [facility] 01-26-2024 21:28-0400 SaO2% (BldA) [Mass fraction] 100 % Art Kathrynaci DO Work Phone: [facility] 01-26-2024 21:28-0400 Systolic blood pressure 124 mm[Hg] Art Kathrynaci DO Work Phone: [facility] 01-22-2024 07:15-0400 Body temperature 97.59 [degF] Jaquan Huschke DO Work Phone: [facility] 01-22-2024 07:15-0400 Diastolic blood pressure 51 mm[Hg] Jaquan Morris DO Work Phone: [facility] 01-22-2024 07:15-0400 Heart rate 94 /min Jaquan Morris DO Work Phone: [facility] 01-22-2024 07:15-0400 Respiratory rate 20 /min Jaquan Morris DO Work Phone: [facility] 01-22-2024 07:15-0400 SaO2% (BldA) [Mass fraction] 97 % Jaquan Morris DO Work Phone: [facility] 01-22-2024 07:15-0400 Systolic blood pressure 160 mm[Hg] Jaquan Morris DO Work Phone: [facility] 12-29-2023 08:04-0500 Diastolic blood pressure 53 mm[Hg] Edwin Bustos MD Work Phone: [facility] 12-29-2023 08:04-0500 Heart rate 83 /min Edwin Bustos MD Work Phone: [facility] 12-29-2023 08:04-0500 Respiratory rate 17 /min Edwin Bustos MD Work Phone: [facility] 12-29-2023 08:04-0500 SaO2% (BldA) [Mass fraction] 100 % Edwin Bustos MD Work Phone: [facility] 12-29-2023 08:04-0500 Systolic blood pressure 132 mm[Hg] Edwin Bustos MD Work Phone: [employer] [facility] 12-28-2023 23:14-0500 Body height 167.6 cm Edwin Bustos MD Work Phone: [facility] 12-28-2023 23:14-0500 Body mass index (BMI) [Ratio] 52.29 kg/m2 Edwin Bustos MD Work Phone: [facility] 12-28-2023 23:14-0500 Body temperature 97.59 [degF] Edwin Bustos MD Work Phone: [facility] 12-28-2023 23:14-0500 Body weight 146.97 kg Edwin Bustos MD Work Phone: [facility] 12-09-2023 10:05-0500 Diastolic blood pressure 63 mm[Hg] Caridad Evans MD Work Phone: [facility] 12-09-2023 10:05-0500 Heart rate 78 /min Caridad Evans MD Work Phone: [facility] 12-09-2023 10:05-0500 Respiratory rate 23 /min Caridad Evans MD Work Phone: [facility] 12-09-2023 10:05-0500 SaO2% (BldA) [Mass fraction] 97 % Caridad Evans MD Work Phone: [facility] 12-09-2023 10:05-0500 Systolic blood pressure 159 mm[Hg] Caridad Evans MD Work Phone: [facility] 12-09-2023 05:22-0500 Body mass index (BMI) [Ratio] 51.7 kg/m2 Caridad Evans MD Work Phone: [facility] 12-09-2023 05:22-0500 Body temperature 98.4 [degF] Caridad Evans MD Work Phone: [facility] 12-09-2023 05:22-0500 Body weight 145.29 kg Caridad Evans MD Work Phone: [facility] 10-16-2023 21:27-0500 Body temperature 96.91 [degF] Rosaura Mustafa DO Work Phone: [facility] 10-16-2023 21:27-0500 Diastolic blood pressure 59 mm[Hg] Rosaura Mustafa DO Work Phone: [facility] 10-16-2023 21:27-0500 Heart rate 76 /min Rosaura Mustafa DO Work Phone: [employer] 10-16-2023 21:27-0500 Respiratory rate 20 /min Rosaura Mustafa DO Work Phone: [facility] 10-16-2023 21:27-0500 SaO2% (BldA) [Mass fraction] 94 % Rosaura Mustafa DO Work Phone: [facility] 10-16-2023 21:27-0500 Systolic blood pressure 100 mm[Hg] Rosaura Mustafa DO Work Phone: [facility] 10-11-2023 11:21-0500 Body height 167.6 cm Rosaura [facility]afa DO [facility] 10-07-2023 16:06-0500 Body mass index (BMI) [Ratio] 51 kg/m2 Rosaura Mustafa DO Work Phone: [facility] 10-07-2023 16:06-0500 Body weight 143.34 kg Rosaura Mustafa DO Work Phone: [facility] 08-19-2023 19:25-0400 Body temperature 97.3 [degF] Aaron [facility]ombash DO [facility] 08-19-2023 19:25-0400 Diastolic blood pressure 60 mm[Hg] Aaron Gombash DO Work Phone: [facility] 08-19-2023 19:25-0400 Heart rate 86 /min Aaron Gombash DO Work Phone: [employer] 08-19-2023 19:25-0400 Respiratory rate 18 /min Aaron Gombash DO Work Phone: [facility] 08-19-2023 19:25-0400 SaO2% (BldA) [Mass fraction] 95 % Aaron Gombash DO Work Phone: [facility] 08-19-2023 19:25-0400 Systolic blood pressure 120 mm[Hg] Aaron Gombash DO Work Phone: [facility] 08-17-2023 12:17-0400 Body height 167.6 cm Aaron Gombash DO Work Phone: [facility] 08-17-2023 12:17-0400 Body mass index (BMI) [Ratio] 54.72 kg/m2 Aaron Gombash DO Work Phone: [facility] 08-17-2023 12:17-0400 Body weight 153.77 kg Aaron Gombash DO Work Phone: [facility] 08-08-2023 13:35-0400 Diastolic blood pressure 63 mm[Hg] Gayle Trevizo MD Work Phone: [facility] 08-08-2023 13:35-0400 Heart rate 100 /min Gayle Trevizo MD Work Phone: [facility] 08-08-2023 13:35-0400 Respiratory rate 20 /min Gayle Trevizo MD Work Phone: [facility] 08-08-2023 13:35-0400 SaO2% (BldA) [Mass fraction] 93 % Gayle Trevizo MD Work Phone: [facility] 08-08-2023 13:35-0400 Systolic blood pressure 122 mm[Hg] Gayle Trevizo MD Work Phone: [facility] 08-08-2023 06:36-0400 Body height 167.6 cm Gayle Trevizo MD Work Phone: [facility] 08-08-2023 06:36-0400 Body mass index (BMI) [Ratio] 54.72 kg/m2 Gayle Trevizo MD Work Phone: [facility] 08-08-2023 06:36-0400 Body temperature 98.29 [degF] Gayle Trevizo MD Work Phone: [facility] 08-08-2023 06:36-0400 Body weight 153.77 kg Gayle Trevizo MD Work Phone: [facility] 07-01-2023 11:21-0400 Body temperature 97.59 [degF] Rosaura Mustafa DO Work Phone: [facility] 07-01-2023 11:21-0400 Diastolic blood pressure 79 mm[Hg] Rosaura Mustafa DO Work Phone: [facility] 07-01-2023 11:21-0400 Heart rate 83 /min Rosaura Mustafa DO Work Phone: [facility] 07-01-2023 11:21-0400 Respiratory rate 20 /min Rosaura Mustafa DO Work Phone: [facility] 07-01-2023 11:21-0400 SaO2% (BldA) [Mass fraction] 94 % Rosaura Mustafa DO Work Phone: [facility] 07-01-2023 11:21-0400 Systolic blood pressure 133 mm[Hg] Rosaura Mustafa DO Work Phone: [facility] 07-01-2023 03:09-0400 Body mass index (BMI) [Ratio] 53.2 kg/m2 Rosaura Mustafa DO Work Phone: [facility] 07-01-2023 03:09-0400 Body weight 149.51 kg Rosaura Mustafa DO Work Phone: [facility] 03-08-2023 19:30-0400 Body temperature 98.49 [degF] Karlos Osborn DO Work Phone: [facility] 03-08-2023 19:30-0400 Diastolic blood pressure 62 mm[Hg] Karlos Plasencial DO Work Phone: [facility] 03-08-2023 19:30-0400 Heart rate 82 /min Karlos Voll DO Work Phone: [facility] 03-08-2023 19:30-0400 Respiratory rate 18 /min Karlos Plasencial DO Work Phone: [facility] 03-08-2023 19:30-0400 SaO2% (BldA) [Mass fraction] 98 % Karlos Osborn DO Work Phone: [facility] 03-08-2023 19:30-0400 Systolic blood pressure 140 mm[Hg] Karlos Plasencial DO Work Phone: [facility] 03-08-2023 12:54-0400 Body mass index (BMI) [Ratio] 54.07 kg/m2 Karlos Voll DO Work Phone: [facility] 03-08-2023 12:54-0400 Body weight 151.96 kg Karlos Plasencial DO Work Phone: [facility] 02-09-2023 10:39-0400 Diastolic blood pressure 75 mm[Hg] Geronimo Lee MD Work Phone: [facility] 02-09-2023 10:39-0400 Systolic blood pressure 137 mm[Hg] Geronimo Lee MD Work Phone: [facility] 12-08-2020 19:11-0500 BP Diastolic 74 mm[Hg] [facility] [place] 12-08-2020 19:11-0500 BP Systolic 151 mm[Hg] [facility] [place] 12-08-2020 19:11-0500 Pulse (Heart Rate) 70 /min [facility] [place] 12-08-2020 19:11-0500 Pulse Oximetry 98 % [facility] [place] 12-08-2020 19:11-0500 Respiratory Rate 15 /min [facility] [place] 12-08-2020 15:12-0500 Body Temperature 98.71 [degF] [facility] [place] 12-08-2020 15:12-0500 Height 167.6 cm [facility] [place] 11-28-2020 14:37-0500 Body Temperature 97.81 [degF] [facility] [place] [place] 11-28-2020 14:37-0500 BP Diastolic 79 mm[Hg] [facility] [place] 11-28-2020 14:37-0500 BP Systolic 128 mm[Hg] Joel Nelson [facility] 11-28-2020 14:37-0500 Pulse (Heart Rate) 75 /min Joel Nelson [facility] 11-28-2020 14:37-0500 Pulse Oximetry 95 % Joel Nelson [facility] 11-28-2020 14:37-0500 Respiratory Rate 18 /min Joel Nelson [facility] 11-27-2020 15:57-0500 Height 167.6 cm Joel Nelson [facility] 11-27-2020 06:28-0500 BMI (Body Mass Index) 51.21 kg/m2 Joel Nelson [facility] 11-27-2020 06:28-0500 Body weight 143.93 kg Joeljaci Nelson [facility] 09-30-2020 14:21-0500 Body Temperature 98.71 [degF] Art Zeng [facility] 09-30-2020 14:21-0500 BP Diastolic 61 mm[Hg] Art Zeng [facility] 09-30-2020 14:21-0500 BP Systolic 115 mm[Hg] Art Zeng [facility] 09-30-2020 14:21-0500 Pulse (Heart Rate) 107 /min Art Zeng [facility] 09-30-2020 14:21-0500 Pulse Oximetry 97 % [facility] [place] 09-30-2020 14:21-0500 Respiratory Rate 18 /min Art Zeng [facility] 09-30-2020 05:45-0500 BMI (Body Mass Index) 53.34 kg/m2 Art Zeng [facility] 09-30-2020 05:45-0500 Body weight 149.91 kg Art Zeng [facility] 09-26-2020 13:28-0500 Height 167.6 cm Art Zeng [facility] 01-02-2020 12:22-0500 Body Temperature 96.3 [degF] Justin Walsh [facility] 01-02-2020 12:22-0500 BP Diastolic 80 mm[Hg] Justin Walsh [facility] 01-02-2020 12:22-0500 BP Systolic 142 mm[Hg] [facility] [place] 01-02-2020 12:22-0500 Pulse (Heart Rate) 115 /min [facility] [place] 01-02-2020 12:22-0500 Pulse Oximetry 95 % [facility] [place] [place] 01-02-2020 12:22-0500 Respiratory Rate 16 /min Justin Walsh [place], [place] 01-02-2020 12:15-0500 BMI (Body Mass Index) 54.88 kg/m2 Justin Walsh [place], [place] 01-02-2020 12:15-0500 Body weight 154.22 kg Jsutincarolyn Walsh [place], [place] Comment on above: verbal, arrived in own WC, did not know exact weight of 01-02-2020 12:15-0500 Height 167.6 cm Justin Walsh [place], [place] 06-27-2019 14:00-0400 BP Diastolic 74 mm[Hg] [place], [place] 06-27-2019 14:00-0400 BP Systolic 123 mm[Hg] [place] 06-27-2019 02:01-0400 Pulse (Heart Rate) 90 /min [place] 06-27-2019 02:01-0400 Pulse Oximetry 100 % [place] 06-27-2019 02:01-0400 Respiratory Rate 17 /min [place] 06-26-2019 21:32-0400 BMI (Body Mass Index) 62.46 kg/m2 [place] 06-26-2019 21:32-0400 Body Temperature 98.01 [degF] [place] 06-26-2019 21:32-0400 Body weight 175.54 kg [place] 06-26-2019 21:32-0400 Height 167.6 cm [place] 06-20-2019 15:37-0400 Body Temperature 100.09 [degF] [place] 06-20-2019 15:37-0400 BP Diastolic 76 mm[Hg] [place] 06-20-2019 15:37-0400 BP Systolic 117 mm[Hg] [place] 06-20-2019 15:37-0400 Pulse (Heart Rate) 107 /min [place] 06-20-2019 15:37-0400 Pulse Oximetry 94 % [place] 06-20-2019 15:37-0400 Respiratory Rate 22 /min [place] 06-19-2019 06:11-0400 BMI (Body Mass Index) 56.31 kg/m2 [place] 06-19-2019 06:11-0400 Body weight 158.26 kg [place] 06-14-2019 13:43-0400 Height 167.6 cm [place] Encounters Encounter Date Encounter Type Care Provider Facility Start: 09-05-2025 End: 09-06-2025 Telephone encounter Dany Woodruff APRN - PATIENT SERVICES SPECIALIST Work Phone: [facility] Comment on above: Diabetes (BGL) Start: 08-28-2025 ambulatory Jared LEON Faci lity:[facility] Start: 08-23-2025 ambulatory Jared LEON Faci lity:[facility] Start: 07-27-2025 End: 08-01-2025 Telephone encounter Dany Woodruff APRN - PATIENT SERVICES SPECIALIST Work Phone: [facility] Comment on above: Diabetes Start: 07-26-2025 End: 07-26-2025 ambulatory DNAY WOODRUFF [facility] Start: 07-26-2025 End: 07-26-2025 Office outpatient visit 40 minutes Dany Woodruff APRN - PATIENT SERVICES SPECIALIST Work Phone: [facility] Comment on above: Type 2 diabetes lee itus with hyperglycemia, with long-term current use of insulin (HCC) (Primary Dx); Insulin resistance; Type 2 diabetes mellitus with peripheral neuropathy (HCC); 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); Hypertension associated with type 2 diabetes mellitus (HCC); Type 2 diabetes mellitus with hyperlipidemia (HCC) (HCC) Start: 07-23-2025 End: 07-24-2025 Telephone encounter Dany Woodruff FLEET ADMINISTRATIVE ASSISTANT - PATIENT SERVICES SPECIALIST Work Phone: [facility] Comment on above: Diabetes (BGL) Start: 07-19-2025 End: 07-19-2025 ambulatory Jared LEON Facility:[facility] Start: 07-18-2025 End: 07-18-2025 Telephone encounter Dany Woodruff FLEET ADMINISTRATIVE ASSISTANT - PATIENT SERVICES SPECIALIST Work Phone: [facility] Comment on above: Diabetes (BGL) Start: 07-12-2025 ambulatory Jared LEON Faci lity:[facility] Start: 07-10-2025 End: 07-11-2025 Emergency department patient visit Hermes Issa MD Work Phone: [facility] Comment on above: Acute nonintractable headache, unspecified headache type (Primary Dx); Nausea; Acute cystitis without hematuria; Hyperglycemia Start: 07-10-2025 End: 07-10-2025 ambulatory Jared LEON Facility:[facility] Start: 07-06-2025 End: 07-06-2025 ambulatory Jared LEON Facility:[facility] Start: 07-04-2025 End: 07-11-2025 Telephone encounter Dany Woodruff FLEET ADMINISTRATIVE ASSISTANT - PATIENT SERVICES SPECIALIST Work Phone: [facility] Comment on above: Diabetes (BGL) Start: 06-27-2025 End: 07-04-2025 Telephone encounter Dany Woodruff FLEET ADMINISTRATIVE ASSISTANT - PATIENT SERVICES SPECIALIST Work Phone: [facility] Comment on above: Diabetes (BGL) Start: 06-19-2025 End: 06-26-2025 Telephone encounter Dany Woodruff FLEET ADMINISTRATIVE ASSISTANT - PATIENT SERVICES SPECIALIST Work Phone: [facility] Comment on above: Diabetes (BGL) Start: 06-11-2025 ambulatory Jared Chung lity:[facility] Start: 06-07-2025 End: 06-11-2025 Telephone encounter Gunner Stall PA-C Work Phone: [facility] Comment on above: Diabetes (BGL) Start: 06-07-2025 End: 06-07-2025 ambulatory FARHAD CHAVEZ [facility] Start: 06-07-2025 End: 06-07-2025 Subsequent hospital visit by physician Farhad Chavez MD Work Phone: [facility] Start: 05-31-2025 End: 06-01-2025 Telephone encounter Gunner Stall PA-C Work Phone: [facility] Comment on above: Diabetes (BGL) Care Coordination (E GD Colon reminder call) Start: 05-14-2025 End: 05-18-2025 Telephone encounter Gunner Stall PA-C Work Phone: [facility] Comment on above: Advice Only (/) Start: 05-10-2025 ambulatory Jared Chung lity:[facility] Start: 05-07-2025 End: 05-07-2025 Telephone encounter Gunner Stall PA-C Work Phone: [facility] Comment on above: Diabetes (BGL) Start: 04-30-2025 End: 05-01-2025 Telephone encounter Gunner Stall PA-C Work Phone: [facility] Comment on above: Diabetes (BGL) Start: 04-17-2025 End: 04-17-2025 Telephone encounter Gunner Stall PA-C Work Phone: [facility] Comment on above: Diabetes Start: 04-06-2025 End: 04-06-2025 ambulatory MITANER STALL [facility] Start: 04-06-2025 End: 04-06-2025 Office outpatient visit 25 minutes Gunner Stall PA-C Work Phone: [facility] Comment on above: Type 2 diabetes [...] 03-27-2025 End: 05-23-2025 Telephone encounter Lisa Lopes FLEET ADMINISTRATIVE ASSISTANT - PROSTHODONTIST/EDUCATOR Work Phone: [facility] Comment on above: Missed Appointment ( Reschedule ); Diabetes (BGL) Start: 02-27-2025 End: 02-28-2025 Telephone encounter Lisa Lopes FLEET ADMINISTRATIVE ASSISTANT - PROSTHODONTIST/EDUCATOR Work Phone: [facility] Comment on above: Diabetes (BGL) Start: 02-26-2025 End: 02-26-2025 ambulatory Jared Linnchad LEON [facility] Work Phone: Start: 02-26-2025 End: 02-26-2025 Departed Referred Jared Guzman [facility] Start: 02-26-2025 Registered Referred Jared Guzman [facility] Start: 02-26-2025 End: 02-26-2025 ambulatory Jared Linnchad LEON Facility:[facility] Start: 02-15-2025 End: 02-16-2025 Telephone encounter Margo Guerrero FLEET ADMINISTRATIVE ASSISTANT - PROSTHODONTIST/EDUCATOR Work Phone: [facility] Comment on above: Diabetes (BGL) Start: 02-09-2025 End: 02-09-2025 Subsequent hospital visit by physician Alejandro Mandel APRN - PROSTHODONTIST/EDUCATOR Work Phone: [facility] Comment on above: PAD (peripheral oh ry disease) (HCC) Start: 02-09-2025 End: 02-09-2025 ambulatory ALEJANDRO MANDEL [facility] Start: 02-08-2025 End: 02-08-2025 Telephone encounter Herber Ramos FLEET ADMINISTRATIVE ASSISTANT - PROSTHODONTIST/EDUCATOR Work Phone: [facility] [place] Comment on above: Results (CT chest wo IV contrast ) Start: 02-07-2025 End: 02-08-2025 Telephone encounter Margo Guerrero FLEET ADMINISTRATIVE ASSISTANT - PROSTHODONTIST/EDUCATOR Work Phone: [facility] Comment on above: Diabetes (BGL) Start: 02-07-2025 End: 02-07-2025 ambulatory Jared Esteveschad LEON [facility] Work Phone: Start: 02-07-2025 End: 02-07-2025 Departed Referred Jared Linnchad [facility] Start: 02-07-2025 End: 02-07-2025 ambulatory Jared LEON Facility:[facility] Start: 02-01-2025 End: 02-01-2025 ambulatory ALEJANDRO MANDEL [facility] Start: 02-01-2025 End: 02-01-2025 Office outpatient new 30 minutes Alejandro Mandel FLEET ADMINISTRATIVE ASSISTANT - PROSTHODONTIST/EDUCATOR Work Phone: [facility] V[facility] Surgery [facility] Comment on above: PAD (peripheral oh ry disease) (HCC) (Primary Dx); Hx of AKA (above knee amputation), right (HCC); Lymphedema of left leg; Morbid obesity (HCC) Start: 01-29-2025 End: 01-31-2025 Telephone encounter Margo Guerrero FLEET ADMINISTRATIVE ASSISTANT - PROSTHODONTIST/EDUCATOR Work Phone: [facility] Comment on above: Diabetes (BGL) Start: 01-15-2025 End: 01-22-2025 Telephone encounter Margo Guerrero FLEET ADMINISTRATIVE ASSISTANT - PROSTHODONTIST/EDUCATOR Work Phone: [facility] Comment on above: Diabetes (BGL) Start: 01-01-2025 End: 01-02-2025 Telephone encounter Margo Guerrero FLEET ADMINISTRATIVE ASSISTANT - PROSTHODONTIST/EDUCATOR Work Phone: [facility] Comment on above: Other (Lab results/B GL) Start: 01-01-2025 End: 01-01-2025 ambulatory MARGO GUERRERO [facility] Start: 01-01-2025 End: 01-01-2025 Office outpatient visit 25 minutes Margo Guerrero APRN - PROSTHODONTIST/EDUCATOR Work Phone: [facility] Comment on above: Type 2 diabetes lee itus with hyperglycemia, with long-term current use of insulin (HCC) (Primary Dx); Type 2 diabetes mellitus with diabetic autonomic neuropathy, with long-term current use of insulin (HCC); Microalbuminuria; Essential hypertension; Mixed hyperlipidemia; Class 3 severe obesity due to excess calories with serious comorbidity and body mass index (BMI) of 45.0 to 49.9 in adult ([facility] Start: 12-27-2024 End: 12-27-2024 ambulatory Jared Linnchad LEON [facility] Work Phone: Start: 12-27-2024 End: 12-27-2024 Departed Referred Jared Guzman [facility] Start: 12-27-2024 End: 12-27-2024 ambulatory Jared LEON Facility:[facility] Start: 12-21-2024 End: 12-21-2024 Office outpatient new 45 minutes Wanda Orovillesantiago Sylvester CNP Work Phone: [facility] Gastroenterology [facility] Comment on above: Fecal occult blood t est positive (Primary Dx); History of anemia; Calculus of gallbladder without cholecystitis without obstruction; BMI 50.0-59.9, adult ([facility]) Start: 12-21-2024 End: 12-21-2024 ambulatory [facility] Start: 12-20-2024 End: 12-26-2024 Telephone encounter Margo Guerrero APRN - KRANTHI Work Phone: [facility] Endocrinology [facility] Comment on above: Diabetes (BGL) Start: 12-07-2024 End: 12-07-2024 Office outpatient visit 25 minutes Lilo Rizo MD Work Phone: [facility] General Surgery [facility] Comment on above: Cholecystitis (Prima ry Dx); Morbid obesity (HCC); Class 3 severe obesity with serious comorbidity and body mass index (BMI) of 50.0 to 59.9 in adult, unspecified obesity type (HCC) Start: 12-07-2024 End: 12-07-2024 ambulatory LILO RIZO [facility] Start: 12-05-2024 End: 12-05-2024 ambulatory Jared LEON [facility] Work Phone: Start: 12-05-2024 End: 12-05-2024 Departed Referred Jared Esteveschad [facility] [employer] Start: 12-05-2024 Registered Referred Jared Estevesdomo - [facility] [place] [facility] Start: 12-05-2024 End: 12-05-2024 ambulatory Jared LEON Facility:[facility] Start: 11-30-2024 End: 12-01-2024 ambulatory JARED GUZMAN [facility] Start: 11-30-2024 Registered Referred Jared Guzman - [employer] [facility] Start: 11-22-2024 End: 11-22-2024 Telephone encounter Margo Guerrero APRN - PROSTHODONTIST/EDUCATOR Work Phone: [facility] Start: 11-21-2024 End: 11-29-2024 Telephone encounter Margo Guerrero APRN - PROSTHODONTIST/EDUCATOR Work Phone: [facility] Comment on above: Diabetes (BGL) Start: 11-15-2024 End: 11-20-2024 Telephone encounter Margo Guerrero APRN - PROSTHODONTIST/EDUCATOR Work Phone: [facility] Comment on above: Diabetes (BGL) Start: 11-14-2024 End: 11-14-2024 Office outpatient visit 10 minutes Asuncion Valencia APRN - PROSTHODONTIST/EDUCATOR Work Phone: [facility] Comment on above: Cholecystitis (Prima ry Dx) Start: 11-14-2024 End: 11-14-2024 ambulatory ASUNCION VALENCIA [facility] Start: 11-13-2024 End: 11-14-2024 Telephone encounter Josie Powell RN [facility] Lung No jeremias Camara [facility] Comment on above: Care Coordination (E D Nuance Lung Nodule ) Start: 11-12-2024 End: 11-13-2024 Emergency department patient visit Virgil Mederos MD Work Phone: [facility] ED Comment on above: History of cholecyst itis (Primary Dx) Start: 11-10-2024 End: 11-10-2024 ambulatory ASUNCION VALENCIA [facility] Start: 11-10-2024 End: 11-10-2024 Office outpatient visit 15 minutes Asuncion Valencia FLEET ADMINISTRATIVE ASSISTANT - PROSTHODONTIST/EDUCATOR Work Phone: [facility] Comment on above: Cholecystitis (Prima ry Dx) Start: 11-10-2024 End: 11-10-2024 Departed Referred Jared MUNOZ Start: 11-10-2024 End: 11-10-2024 ambulatory Jared LEON Facility:[facility] Start: 10-30-2024 End: 10-30-2024 Telephone encounter Анна Mcmahon FLEET ADMINISTRATIVE ASSISTANT - PROSTHODONTIST/EDUCATOR Work Phone: [facility] Comment on above: Diabetes (BGL) Start: 10-30-2024 End: 10-30-2024 Departed Referred Jared MUNOZ Start: 10-30-2024 End: 10-30-2024 ambulatory Jared LEON Facility:[facility] Start: 10-24-2024 End: 10-24-2024 Emergency department patient visit Vicente Mixon MD Work Phone: [facility] ED Comment on above: Hypoglycemic episode in patient with diabetes mellitus (HCC) (Primary Dx) Start: 10-19-2024 End: 10-20-2024 Telephone encounter Lisa Lopes FLEET ADMINISTRATIVE ASSISTANT - PROSTHODONTIST/EDUCATOR Work Phone: [facility] Start: 10-18-2024 End: 10-23-2024 Evaluation and management of inpatient Dontrell Woodall Work Phone: [facility] Medical Surgical Unit MSU 4S Comment on above: Acute cholecystitis (Primary Dx) Start: 09-22-2024 End: 09-22-2024 Departed Referred Jared Guzman -[facility] Start: 09-22-2024 End: 09-22-2024 ambulatory Jared LEON Facility:[facility] Start: 09-19-2024 End: 09-20-2024 Telephone encounter Geronimo Lee MD Work Phone: [facility] Comment on above: Diabetes (BGL) Start: 09-11-2024 End: 09-12-2024 Telephone encounter Geronimo Lee MD Work Phone: [facility] Comment on above: Diabetes (BGL) Start: 08-08-2024 End: 08-09-2024 Telephone encounter Geronimo Lee MD Work Phone: [facility] Comment on above: Diabetes (BGL) Start: 08-03-2024 End: 08-08-2024 Telephone encounter Geronimo Lee MD Work Phone: [facility] Comment on above: Diabetes (BGL) Start: 07-17-2024 End: 07-18-2024 Telephone encounter Geronimo Lee MD Work Phone: [facility] Comment on above: Diabetes (BGL) Start: 05-02-2024 End: 05-02-2024 Telephone encounter Ryan Wyatt MA [facility] Endocrinology Start: 02-22-2024 Telephone encounter Geronimo ryan MD Work Phone: [facility] Endocrinology Comment on above: Diabetes (BGL) Start: 02-11-2024 End: 05-12-2024 Transcribe Orders Herber Ramos FLEET ADMINISTRATIVE ASSISTANT - PROSTHODONTIST/EDUCATOR Work Phone: [facility] Central Scheduling Comment on above: Solitary pulmonary n odule (Primary Dx) Start: 02-11-2024 End: 02-11-2024 Office outpatient visit 15 minutes Herber Ramos FLEET ADMINISTRATIVE ASSISTANT - PROSTHODONTIST/EDUCATOR Work Phone: [facility] Pulmonary Care Comment on above: Lung nodule (Primary Dx); JOHN (obstructive sleep apnea); Morbid obesity with BMI of 45.0-49.9, adult (HCC) Start: 01-27-2024 End: 01-28-2024 Emergency department patient visit Fermin Melchor DO Work Phone: [facility] EMERGENCY DEPT Comment on above: Hypoglycemia (Primar y Dx) Start: 01-26-2024 End: 01-27-2024 Emergency department patient visit Art Zeng DO Work Phone: [facility] EMERGENCY DEPT Comment on above: Hypoglycemia (Primar y Dx) Start: 01-22-2024 End: 01-22-2024 Emergency department patient visit Jaquan Morris DO Work Phone: [facility] ED Comment on above: Nausea and vomiting, unspecified vomiting type (Primary Dx); Cystitis Start: 01-20-2024 Telephone encounter Geronimo ryan MD Work Phone: [facility] Clinical Communication Comment on above: Appointment Start: 01-20-2024 End: 01-20-2024 ambulatory [facility] Work Phone: Start: 01-20-2024 End: 01-20-2024 Departed Referred [facility] Start: 01-20-2024 Registered Referred [facility] Start: 01-19-2024 Telephone encounter Geronimo ryan MD Work Phone: [facility] Medical [facility] Endocrinology Comment on above: Diabetes (BGL) Start: 01-17-2024 End: 01-17-2024 ambulatory [facility] Work Phone: Start: 01-17-2024 End: 01-17-2024 Departed Referred [facility] Start: 01-17-2024 Registered Referred [facility] Start: 01-13-2024 End: 01-13-2024 ambulatory [facility] Work Phone: Start: 01-13-2024 End: 01-13-2024 Departed Referred [facility] Start: 01-13-2024 Registered Referred [facility] Start: 01-03-2024 Telephone encounter Josie Dean [facility] Pulmonary and Sleep Medicine Comment on above: Care Coordination (E D Kiaraance Lung Nodule ) Start: 12-31-2023 End: 12-31-2023 ambulatory [facility] Work Phone: Start: 12-31-2023 End: 12-31-2023 Departed Referred [facility] Start: 12-30-2023 End: 12-30-2023 ambulatory [facility] Work Phone: Start: 12-30-2023 End: 12-30-2023 Departed Referred [facility] Start: 12-30-2023 Registered Referred [facility] Start: 12-28-2023 End: 12-29-2023 Emergency department patient visit Edwin Bustos MD Work Phone: [facility] EMERGENCY DEPT Comment on above: Nausea and vomiting, unspecified vomiting type (Primary Dx) Start: 12-28-2023 Telephone encounter Geronimo ryan MD Work Phone: [facility] Endocrinology Comment on above: Diabetes (BGL) Start: 12-23-2023 End: 12-23-2023 Subsequent hospital visit by physician Elda Reaves ([place]) Work Phone: [facility] Nuclear Medicine Comment on above: Nausea with vomiting , unspecified Start: 12-22-2023 End: 12-22-2023 ambulatory [facility] Work Phone: Start: 12-22-2023 End: 12-22-2023 [facility] Start: 12-22-2023 [facility] Start: 12-13-2023 ambulatory Leonela Calix RN [facility] Clinical Communication Start: 12-13-2023 Patient encounter procedure Leonela Calix RN [facility] Clinical Communication Start: 12-09-2023 End: 12-09-2023 Emergency department patient visit Caridad Evans MD Work Phone: [facility] ED Comment on above: Nausea vomiting and diarrhea (Primary Dx); Dehydration Start: 12-06-2023 Telephone encounter Geronimo ryan MD Work Phone: [facility] Endocrinology Comment on above: Diabetes (BGL) Start: 11-24-2023 Transcribe Monique Reaves ([place]) Work Phone: [facility] Central Scheduling Comment on above: Nausea with vomiting , unspecified (Primary Dx) Start: 11-23-2023 Telephone encounter Geronimo ryan MD Work Phone: [facility] Endocrinology Comment on above: Diabetes (BGL) Start: 11-23-2023 End: 11-23-2023 ambulatory [facility] Work Phone: Start: 11-23-2023 End: 11-23-2023 Departed Referred [facility] Start: 11-18-2023 End: 11-18-2023 [facility] Work Phone: Start: 11-18-2023 End: 11-18-2023 Departed Referred [facility] Start: 11-18-2023 Registered Referred [facility] Start: 11-17-2023 End: 11-17-2023 ambulatory [facility] Facility:[facility] Start: 11-09-2023 Telephone encounter Geronimo ryan MD Work Phone: [facility] Endocrinology Comment on above: Advice Only Start: 10-27-2023 End: 10-27-2023 Office outpatient visit 25 minutes Geronimo Lee MD Work Phone: [facility] Endocrinology Comment on above: Type 2 diabetes lee itus with hyperglycemia, with long-term current use of insulin (HCC) (Primary Dx); Mixed hyperlipidemia; Primary hypertension Start: 10-26-2023 End: 10-26-2023 [facility] Work Phone: Start: 10-26-2023 End: 10-26-2023 Departed Referred [facility] Start: 10-07-2023 End: 10-07-2023 Subsequent hospital visit by physician [facility] [address] [facility] [address] Comment on above: Arrived Start: 10-07-2023 End: 10-17-2023 Evaluation and management of inpatient Rosaura Mustafa DO Work Phone: [facility] Cardiac Post Intervention Progressive Care Unit CPI PCU 4W Start: 09-20-2023 Telephone encounter Geronimo ryan MD Work Phone: [facility] Endocrinology Comment on above: Diabetes (BGL) Start: 09-20-2023 End: 09-20-2023 Departed Referred [facility] Start: 08-30-2023 Telephone encounter Geronimo ryan MD Work Phone: [facility] Endocrinology Comment on above: Diabetes (BGL) Start: 08-17-2023 End: 08-19-2023 Emergency department patient visit Aaron Burgos DO Work Phone: [facility] Medical Surgical Unit MSU 1E Comment on above: Upper abdominal pain (Primary Dx); Hypoglycemia Start: 08-17-2023 End: 08-17-2023 ambulatory [facility] Work Phone: Start: 08-17-2023 End: 08-17-2023 Departed Referred [facility] Start: 08-11-2023 Telephone encounter Geronimo ryan MD Work Phone: [facility] Endocrinology Comment on above: Diabetes (BGL) Start: 08-08-2023 End: 08-08-2023 Emergency department patient visit Gayle Trevizo MD Work Phone: [facility] ED Comment on above: Pyelonephritis (Prim valeria Dx); Upper abdominal pain; Nausea Start: 08-04-2023 End: 08-04-2023 ambulatory [facility] Work Phone: Start: 08-04-2023 End: 08-04-2023 Departed Referred [facility] Start: 08-02-2023 End: 08-02-2023 Departed Referred [facility] Start: 08-02-2023 Registered Referred [facility] Start: 07-05-2023 Telephone encounter Geronimo ryan MD Work Phone: [facility] Endocrinology Comment on above: Care Coordination (E D Nuance Lung Nodule ) Care Coordination (E D Nuance Lung Nodule/Resp consult for lung nodule) Start: 07-05-2023 End: 07-05-2023 ambulatory [facility] Work Phone: Start: 07-05-2023 End: 07-05-2023 Departed Referred [facility] Start: 06-29-2023 End: 06-29-2023 Evaluation and management of inpatient Art Palmer MD Work Phone: [facility] Start: 06-28-2023 End: 07-01-2023 Emergency department patient visit Rosaura Mustafa DO Work Phone: [facility] 2E TELEMETRY Comment on above: Chest pain, unspecif ied type (Primary Dx) Start: 06-22-2023 Telephone encounter Geronimo ryan MD Work Phone: [facility] Endocrinology Comment on above: Diabetes (BGL) Start: 05-31-2023 End: 05-31-2023 Departed Referred [facility] Start: 05-31-2023 Registered Referred [facility] Start: 05-17-2023 Telephone encounter Geronimo ryan MD Work Phone: [facility] Endocrinology Comment on above: Diabetes (BGL) Start: 05-05-2023 Telephone encounter Geronimo ryan MD Work Phone: [facility] Endocrinology Comment on above: Diabetes (BGL) Start: 04-19-2023 End: 04-19-2023 ambulatory [facility] Work Phone: Start: 04-19-2023 End: 04-19-2023 Departed Referred [facility] Start: 03-30-2023 End: 03-30-2023 ambulatory [facility] Work Phone: Start: 03-30-2023 End: 03-30-2023 Departed Referred [facility] [employer] [facility] Start: 03-15-2023 End: 03-15-2023 Departed Referred [facility] [employer] [facility] Start: 03-08-2023 End: 03-08-2023 Emergency department patient visit Karlos Osborn DO Work Phone: [facility] ED Comment on above: Abdominal pain, gene ralized (Primary Dx); Gastroparesis Start: 02-25-2023 Telephone encounter Geronimo ryan MD Work Phone: [facility] Endocrinology Comment on above: Diabetes (BGL) Start: 02-09-2023 End: 02-09-2023 Office outpatient visit 25 minutes Geronimo Lee MD Work Phone: [facility] Endocrinology Comment on above: Type 2 diabetes lee itus with hyperglycemia, with long-term current use of insulin (CMS/HCC) (HCC) (Primary Dx); Mixed hyperlipidemia; Primary hypertension Start: 01-26-2023 Transcribe Orders Jared moyer Work Phone: [facility] Physician Referral Service Start: 01-13-2023 End: 01-13-2023 ambulatory [facility] Work Phone: Start: 01-13-2023 End: 01-13-2023 Departed Referred [facility] [employer] [facility] Start: 12-02-2022 End: 12-02-2022 ambulatory [facility] Work Phone: Start: 12-02-2022 End: 12-02-2022 Departed Referred [facility] [place] [facility] Start: 10-27-2022 End: 10-27-2022 ambulatory [facility] Work Phone: Start: 10-27-2022 End: 10-27-2022 Departed Referred [facility] [employer] Start: 06-24-2022 End: 06-24-2022 ambulatory [facility] Work Phone: Start: 06-24-2022 End: 06-24-2022 Departed Referred [facility] [employer] Start: 05-25-2022 End: 05-25-2022 Departed Referred [facility] [employer] Start: 04-27-2022 End: 04-27-2022 Departed Referred [facility] [employer] Start: 04-13-2022 End: 04-13-2022 Departed Referred [facility] [employer] Start: 04-13-2022 Registered Referred [facility] [employer] Start: 03-02-2022 End: 03-02-2022 Departed Referred [facility] [employer] Start: 01-29-2022 End: 01-29-2022 Departed Referred [facility] [employer] Start: 01-29-2022 Registered Referred [facility] [employer] [facility] Start: 01-19-2022 End: 01-19-2022 Departed Referred [facility] [employer] Start: 01-19-2022 Registered Referred [facility] [employer] [facility] Start: 12-08-2020 End: 12-08-2020 Emergency department patient visit Art Zeng Work Phone: [facility] Comment on above: Bacterial urinary in fection (Primary Dx); Non-intractable vomiting with nausea, unspecified vomiting type; Abdominal pain, unspecified abdominal location Start: 11-22-2020 End: 11-28-2020 Evaluation and management of inpatient Joel Olvin Nelson Work Phone: [facility] 7E Oncology Comment on above: Hypoglycemia (Primar y Dx); Nausea Start: 09-17-2020 End: 09-30-2020 Evaluation and management of inpatient Art Zeng Work Phone: [facility] 2E TELEMETRY Comment on above: Ileus (HCC) (Primary Dx); Nausea and vomiting, intractability of vomiting not specified, unspecified vomiting type; Generalized abdominal pain Start: 01-02-2020 End: 01-02-2020 Subsequent hospital visit by physician Justin Walsh Work Phone: [facility] Pre-Admit Testing Comment on above: Arrived Start: 06-26-2019 End: 06-27-2019 Emergency department patient visit Davie Blank Work Phone: [facility] Comment on above: Amputation stump inf ection (HCC) (Primary Dx) Start: 06-14-2019 End: 06-20-2019 Evaluation and management of inpatient Dom Ortiz Work Phone: [facility] H6 TELEMETRY Comment on above: Diabetic foot infect ion ([facility]) (Primary Dx); Lactic acidosis; Morbid obesity ([facility]) Start: 01-03-2019 End: 01-03-2019 Patient encounter procedure [facility] Start: 12-27-2018 End: 12-27-2018 Patient encounter procedure [facility] Start: 07-12-2018 End: 07-12-2018 Patient encounter procedure [facility] Start: 06-28-2018 End: 06-28-2018 Patient encounter procedure [facility] Start: 06-14-2018 End: 06-14-2018 Patient encounter procedure [facility] Start: 05-04-2018 Ambulatory [facility] ty:[facility] Start: 04-28-2018 End: 05-06-2018 Evaluation and management of inpatient [facility] Start: 03-18-2018 Ambulatory [facility] ty:[facility] Start: 03-15-2018 End: 03-21-2018 Evaluation and management of inpatient [facility] Start: 02-02-2018 End: 02-08-2018 Evaluation and management of inpatient [facility] Procedures Date Procedure Procedure Detail Performing [...] Work Phone: Start: 07-10-2025 Comprehensive metabolic panel ToiWiki[employer] er PA-C Work Phone: Start: 07-10-2025 Ecg routine ecg w/least 12 lds trcg only w/o i&r Toi Douglas PA-C Work Phone: Start: 06-07-2025 Colonoscopy Farhad Chavez MD Work Phone: Start: 04-06-2025 Hemoglobin glycosylated a1c Kaushal [employer] Work Phone: Start: 04-06-2025 Follow-up visit JARED GUZMAN Start: 02-26-2025 Serum inorganic phosphate measurement Jared LEON Start: 02-09-2025 Non-invasive physiologic study extremity 3 niki Mandel FLEET ADMINISTRATIVE ASSISTANT - PROSTHODONTIST/EDUCATOR Work Phone: Start: 02-01-2025 Follow-up visit JARED GUZMAN Start: 01-01-2025 Follow-up visit JARED GUZMAN Start: 12-27-2024 Measurement of renal function Jared LEON Comment on above: GFR Calc Start: 12-21-2024 Follow-up visit JARED GUZMAN Start: 12-07-2024 Follow-up visit JARED GUZMAN Start: 11-14-2024 Follow-up visit JARED GUZMAN Start: 11-12-2024 Basic metabolic panel calcium total Ramsey Apodaca FLEET ADMINISTRATIVE ASSISTANT - PROSTHODONTIST/EDUCATOR Work Phone: Start: 11-12-2024 Ct abdomen & pelvis w/o contrast material Ramsey Apodaca FLEET ADMINISTRATIVE ASSISTANT - PROSTHODONTIST/EDUCATOR Work Phone: Start: 11-10-2024 Urine culture Jared [...] 10-09-2023 Drug screen quantitative vancomycin Rachael Robertson FLEET ADMINISTRATIVE ASSISTANT - PROSTHODONTIST/EDUCATOR Work Phone: Start: 10-09-2023 End: 10-09-2023 Hemoglobin [...] abdomen & pelvis w/contrast material Rachael Robertson FLEET ADMINISTRATIVE ASSISTANT - PROSTHODONTIST/EDUCATOR Work Phone: Start: 10-08-2023 Glucose quantitative blood xcpt reagent strip Mayda Olmstead MD Work Phone: Start: 10-08-2023 Basic metabolic panel calcium total Rachael Robertson FLEET ADMINISTRATIVE ASSISTANT - [facility] Work Phone: Start: 10-07-2023 Glucose quantitative blood xcpt reagent strip Ricardo Spring MD Work Phone: Start: 10-07-2023 Procalcitonin (pct) Rachael Robertson FLEET ADMINISTRATIVE ASSISTANT - [facility] Work Phone: Start: 10-07-2023 Glucose quantitative blood xcpt reagent strip Ricardo Spring MD Work Phone: Start: 10-07-2023 End: 10-07-2023 Glucose quantitative blood xcpt reagent strip Rosaura Mustafa DO Work Phone: Start: 10-07-2023 Culture bacterial quanttative colony count urine Rosaura Mustafa DO Work Phone: Start: 10-07-2023 Drug tst prsmv instrmnt chem analyzers pr date Rachael Robertson FLEET ADMINISTRATIVE ASSISTANT - [facility] Work Phone: Start: 10-07-2023 Urinalysis complete [...] test def 1-7 classes Rachael Virgil son FLEET ADMINISTRATIVE ASSISTANT - PROSTHODONTIST/EDUCATOR Work Phone: Start: 08-19-2023 Glucose quantitative blood [...] Glucose quantitative blood xcpt reagent strip Aaron Moodymbash DO Work Phone: Start: 08-18-2023 Basic metabolic [...] cleared fda spec home use Gabo A Setrada Work Phone: Start: 11-28-2020 Comprehensive metabolic panel [...] 11-26-2020 Assay of thyroid stimulating hormone tsh нАна Villela Work Phone: Start: 11-25-2020 Gluc bld [...] use Naibl M Esterle Work Phone: Start: 09-30-2020 Gastric [...] dev cleared fda spec home use Art PeraltaPheedo Work Phone: Start: 09-20-2020 Radiologic exam abdomen [...] cleared fda spec home use Art Escobar [employer] Work Phone: Start: 09-19-2020 [facility] ENDOSCOPY REPORT [...] Blood count complete auto&auto difrntl wbc [employer] Work Phone: Start: 06-19-2019 Gluc bld gluc mntr dev cleared fda spec home use Jayesh Jordan Work Phone: Start: 06-19-2019 Gluc bld gluc mntr dev cleared fda spec home use Jayesh Jordan Work Phone: Start: 06-19-2019 Gluc bld gluc mntr dev cleared fda spec home use Jayesh Jordan Work Phone: Start: 06-19-2019 Blood count complete auto&auto difrntl wbc [employer] Work Phone: Start: 06-19-2019 Procalcitonin (pct) [employer] Work Phone: Start: 06-18-2019 Gluc bld gluc [...] Work Phone: Start: 06-16-2019 Hemoglobin glycosylated a1c Jarke dean Work Phone: Start: 06-16-2019 Gluc bld [...] Start: 06-16-2019 Drug screen quantitative vancomycin Keily Araujo Work Phone: Start: 06-15-2019 Gluc bld [...] 75+ series) [facility] Start: 06-07-2035 Screening for malignant neoplasm of colon [facility] Start: 2026 RSV Immunization aged 60 or older (1 - 1-dose 60+ series) RSV Immunization aged 60 or older (1 - 1-dose 60+ series) [facility] Start: 2026 [facility] Start: 07-10-2026 Diabetes: Estimated Glomerular Filtration Rate for Kidney Health Diabetes: Estimated Glomerular Filtration Rate for YeHive Health [facility] Start: 04-19-2026 Glaucoma screening Diabetes: Retinopathy Screening [facility] Start: 04-06-2026 Hemoglobin A1c measurement Diabetes: Hemoglobin A1C [facility] Start: 03-27-2026 Diabetic foot examination Diabetes: Foot Exam [facility] Start: 01-01-2026 Diabetic foot examination Diabetes: Foot Exam [facility] Start: 12-01-2025 Diabetes: Estimated Glomerular Filtration Rate for Kidney Health Diabetes: Estimated Glomerular Filtration Rate for YeHive Health [facility] Start: 11-12-2025 Diabetes: Estimated Glomerular Filtration Rate for Kidney Health Diabetes: Estimated Glomerular Filtration Rate for Kidney Health [facility] Start: 10-24-2025 Diabetes: Estimated Glomerular Filtration Rate for Kidney Health Diabetes: Estimated Glomerular Filtration Rate for Kidney Health [facility] Start: 10-23-2025 Diabetes: Estimated Glomerular Filtration Rate for Kidney Health Diabetes: Estimated Glomerular Filtration Rate for Kidney Health [facility] Start: 10-20-2025 Diabetes: Estimated Glomerular Filtration Rate for Kidney Health Diabetes: Estimated Glomerular Filtration Rate for Kidney Health [facility] Start: 10-19-2025 Hemoglobin A1c measurement Diabetes: Hemoglobin A1C [facility] Start: 10-19-2025 Screening for malignant neoplasm of colon [facility] Start: 08-31-2025 Glaucoma screening Diabetes: Retinopathy Screening [facility] Start: 08-16-2025 End: 08-16-2025 Patient encounter procedure 08/16/2025 3:30 PM EDT Office Visit [facility] [address] [place] [address] Dany Woodruff APRN - PATIENT SERVICES SPECIALIST [address] [facility] [address] [place] [address] [facility] Start: 08-07-2025 End: 08-07-2025 Patient encounter procedure 08/07/2025 3:30 PM EDT Office Visit [facility] [address] [place] [phone] Kaushal Schultz PA-C [address] [place] [address] [facility] Start: 07-26-2025 End: 07-26-2025 Patient encounter procedure 07/26/2025 11:00 AM EDT Office Visit [facility] [address] [place] [address] Dany Woodruff APRN - PATIENT SERVICES SPECIALIST [address] [address] [facility] Start: 07-09-2025 COVID-19 Vaccine ( season) COVID-19 Vaccine ( season) [facility] Start: 07-09-2025 Influenza vaccination [facility] Start: 07-07-2025 End: 04-06-2026 Comprehensive metabolic 1998 panel - Serum or Plasma Comprehensive metabolic panel Lab Routine Type 2 diabetes mellitus with hyperglycemia, with long-term current use of insulin (HCC) Microalbuminuria Expected: 07/07/2025 (Approximate), Expires: 04/06/2026 [facility] System Work Phone: Comment on above: Expected: 07/07/2025 (Approximate), Expi res: 04/06/2026 Start: 07-07-2025 End: 04-06-2026 Lipid 1996 panel - Serum or Plasma Lipid panel Lab Routine Mixed diabetic hyperlipidemia associated with type 2 diabetes mellitus (HCC) Expected: 07/07/2025 (Approximate), Expires: 04/06/2026 [facility] Comment on above: Expected: 07/07/2025 (Approximate), Expi res: 04/06/2026 Start: 07-07-2025 End: 04-06-2026 Microalbumin/Creatinine panel in random Urine Microalbumin / creatinine urine ratio Lab Routine Type 2 diabetes mellitus with hyperglycemia, with long-term current use of insulin (HCC) Microalbuminuria Expected: 07/07/2025 (Approximate), Expires: 04/06/2026 [facility] Comment on above: Expected: 07/07/2025 (Approximate), Expi res: 04/06/2026 Start: 06-22-2025 Glaucoma screening [facility] Start: 06-07-2025 End: 06-07-2025 Admission to same day surgery center 06/07/2025 11:00 AM EDT - 06/07/2025 12:00 PM EDT Surgery [facility] [address] [place] [address] Fahrad Chavez MD [address] [place], [place] [id number] COLONOSCOPY [24385 (CPT )] [facility] Endoscopy Comment on above: COLONOSCOPY [51767 (CPT )] Start: 06-07-2025 End: 06-07-2025 Colonoscopy flx dx w/collj spec when pfrmd [facility] Gastroenterology Start: 06-07-2025 End: 06-07-2025 Esophagogastroduodenoscopy transoral diagnostic [facility] Gastroenterology Start: 06-07-2025 Subsequent hospital visit by physician 06/07/2025 11:00 AM EDT Hospital Encounter [facility] [address] [place] [address] Farhad Chavez MD [address] [place], [place] [id number] [facility] Start: 03-27-2025 End: 03-27-2025 Patient encounter procedure 03/27/2025 9:00 AM EDT Office Visit [facility] [address] [facility] [address] [place] [phone] Lisa Lopes FLEET ADMINISTRATIVE ASSISTANT - PROSTHODONTIST/EDUCATOR [address] [place] [address] [facility] Start: 03-02-2025 End: 03-02-2025 Patient encounter procedure 03/02/2025 11:20 AM EDT Office Visit [facility] Lung Nodule [facility] [address] [place] [address] Herber Ramos APRN - PROSTHODONTIST/EDUCATOR [address] [place] [address] [facility] Lung Nodule [facility] Start: 02-14-2025 Glaucoma screening Diabetes: Retinopathy Screening [facility] Start: 02-09-2025 End: 02-09-2025 Patient encounter procedure 02/09/2025 2:20 PM EDT Appointment [facility] Vascular Lab [address] [place] [address] Alejandro Mandel FLEET ADMINISTRATIVE ASSISTANT - PROSTHODONTIST/EDUCATOR [address] [facility] [address] [place] [phone] [facility] Vascular Lab Start: 02-06-2025 End: 02-10-2025 CT Chest WO contrast CT chest wo IV contrast Imaging Routine Lung nodule Expected: 02/06/2025, Expires: 02/10/2025 [facility] Work Phone: Comment on above: Expected: 02/06/2025, Expires: Start: 02-06-2025 End: 02-06-2025 [facility] Start: 02-06-2025 End: 02-06-2025 Patient encounter procedure 02/06/2025 7:30 AM EDT Appointment [facility] [address] [place] [address] Herber Ramos, FLEET ADMINISTRATIVE ASSISTANT - PROSTHODONTIST/EDUCATOR [address] [place] [address] [facility] [address] Imaging Start: 02-01-2025 End: 02-01-2025 Patient encounter procedure 02/01/2025 9:30 AM EDT Office Visit [facility] Vascular Surgery [facility] [address] [place] [phone] Alejandro Mandel FLEET ADMINISTRATIVE ASSISTANT - PROSTHODONTIST/EDUCATOR [address] [place] [phone] [facility] Vascular Surgery [facility] Start: 01-21-2025 Diabetes: Estimated Glomerular Filtration Rate for Kidney [facility] Diabetes: Estimated Glomerular Filtration Rate for Kidney Health [facility] Start: 01-01-2025 End: 01-01-2026 Lipid 1996 panel - Serum or Plasma Lipid panel Lab Routine Mixed hyperlipidemia Expected: 01/01/2025 (Approximate), Expires: 01/01/2026 [facility] System Work Phone: Comment on above: Expected: 01/01/2025 (Approximate), Expi res: 01/01/2026 Start: 01-01-2025 End: 01-01-2026 Microalbumin/Creatinine panel in random Urine Microalbumin / creatinine urine ratio Lab Routine Type 2 diabetes mellitus with hyperglycemia, with long-term current use of insulin (HCC) Expected: 01/01/2025 (Approximate), Expires: 01/01/2026 [facility] Comment on above: Expected: 01/01/2025 (Approximate), Expi res: 01/01/2026 Start: 01-01-2025 End: 01-01-2025 Patient encounter procedure 01/01/2025 11:00 AM EST Office Visit [facility] [address] [facility] [address] [place] [phone] Margo Guerrero, FLEET ADMINISTRATIVE ASSISTANT - PROSTHODONTIST/EDUCATOR [address] [place] [address] [facility] Start: 12-31-2024 Hemoglobin A1c measurement Diabetes: Hemoglobin A1C [facility] Start: 12-21-2024 End: 12-21-2024 Patient encounter procedure 12/21/2024 8:30 AM EST Office Visit [facility] Gastroenterology - [place] [address] [place] [phone] Wanda Johnson APRN - PROSTHODONTIST/EDUCATOR [address] [facility] [address] [place] [address] [facility] Gastroenterology [facility] Start: 12-10-2024 Glaucoma screening Diabetes: Retinopathy Screening [facility] Start: 12-07-2024 End: 12-07-2024 Patient encounter procedure 12/07/2024 1:00 PM EST Office Visit [facility] [address] [facility] [address] [place] [phone] Lilo Rizo MD [address] [place] [address] [address] [place], [place] [phone] [facility] Start: 11-27-2024 End: 11-27-2024 Patient encounter procedure [facility] Start: 11-24-2024 End: 11-10-2025 RF Guidance for percutaneous drainage and placement of drainage catheter of Biliary ducts IR biliary drain check Imaging Routine Cholecystitis Expected: 11/24/2024, Expires: 11/10/2025 [facility] System Work Phone: Comment on above: Expected: 11/24/2024, Expires: Start: 11-14-2024 End: 11-14-2024 Patient encounter procedure 11/14/2024 10:15 AM EST Office Visit [facility] [address] [facility] [address] [place] [address] Asuncion Valencia APRN - PROSTHODONTIST/EDUCATOR [address] [facility] [address] [place] [address] [facility] Start: 11-08-2024 Medicare Advantage Annual Wellness Visit Medicare Advantage Annual Wellness Visit [facility] Start: 10-09-2024 Hemoglobin A1c measurement [facility] Start: 07-09-2024 COVID-19 Vaccine ( season) COVID-19 Vaccine () [facility] Start: 07-09-2024 COVID-19 Vaccine () COVID-19 Vaccine () [facility] Start: 07-09-2024 Influenza vaccination [facility] Start: 06-22-2024 Glaucoma screening Diabetes: Retinopathy Screening [facility] Start: 03-14-2024 End: 03-14-2024 Patient encounter procedure 03/14/2024 2:30 PM EDT Office Visit [facility] Endocrinology [address] [place] [address] Carito Thacker FLEET ADMINISTRATIVE ASSISTANT - PROSTHODONTIST/EDUCATOR [address] [place] [address] [facility] Endocr[facility]ology Start: 02-11-2024 End: 02-10-2025 CT Chest WO contrast CT chest wo IV contrast Imaging Routine Solitary pulmonary nodule Expected: 02/11/2024, Expires: 02/10/2025 [facility] Work Phone: Comment on above: Expected: 02/11/2024, Expires: Start: 02-11-2024 End: 02-11-2024 Patient encounter procedure [facility] Start: 02-10-2024 Hemoglobin A1c measurement Diabetes: Hemoglobin A1C [facility] Start: 02-10-2024 Lipid panel [facility] Start: 01-06-2024 End: 01-06-2024 Patient encounter procedure 01/06/2024 11:30 AM EST Appointment [facility] CT Imaging [address] [place] [facility] [address] Herber Ramos FLEET ADMINISTRATIVE ASSISTANT - PROSTHODONTIST/EDUCATOR [address] [facility] [address] Imaging Start: 12-31-2023 End: 12-31-2023 ambulatory [facility] Start: 12-31-2023 End: 12-31-2023 Patient encounter procedure 12/31/2023 9:40 AM EST Office Visit [facility] [address] [place] [phone] Herber Ramos APRN - PROSTHODONTIST/EDUCATOR [address] [place] [address] [facility] Start: 12-23-2023 End: 12-23-2023 Patient encounter procedure 12/23/2023 9:00 AM EST Appointment [facility] Nuclear Medicine [address] [place] [address] [facility] Nuclear Medicine Start: 12-20-2023 End: 12-20-[address] [facility] [address] Imaging Start: 12-20-2023 End: 12-20-2023 Patient encounter procedure 12/20/2023 10:30 AM EST Appointment [facility] Imaging [address] [place] [address] Herber Ramos, JEREMY - PROSTHODONTIST/EDUCATOR [address] [place] [address] [facility] [address] Imaging Start: 11-08-2023 Medicare Advantage Annual Wellness Visit Medicare Advantage Annual Wellness Visit [facility] Start: 10-27-2023 End: 10-27-2023 ambulatory [facility] Endocrinology Start: 10-27-2023 End: 10-27-2023 Patient encounter procedure 10/27/2023 2:00 PM EST Office Visit [facility] Endocrinology [address] [place] [address] Geronimo Lee MD [address] [place] [address] [facility] Start: 10-27-2023 End: 10-27-2023 Telemedicine consultation with patient 10/27/2023 2:00 PM EST Telemedicine [facility] Endocrinology [address] [place] [address] Geronimo Lee MD [address] [place] [address] [facility]ocr[facility]ology Start: 09-17-2023 End: 09-17-2023 Patient encounter procedure 09/17/2023 Office Visit Endocrinology Geronimo Lee MD [address] [place] [address] [facility] Start: 09-17-2023 End: 09-17-2023 Patient encounter procedure 09/17/2023 9:10 AM EST Office Visit [facility] [address] [place] [address] Herber Ramos, FLEET ADMINISTRATIVE ASSISTANT - PROSTHODONTIST/EDUCATOR [address] [place] [address] [facility] Start: 08-13-2023 End: 08-13-2023 Patient encounter procedure 08/13/2023 11:40 AM EDT Office Visit [facility] [address] [place] [address] Herber Ramos, FLEET ADMINISTRATIVE ASSISTANT - PROSTHODONTIST/EDUCATOR [address] [place] [address] [facility] Start: 07-30-2023 End: 07-30-2023 Patient encounter procedure 07/30/2023 9:10 AM EDT Office Visit [facility] [address] [place] [address] Herber Ramos, FLEET ADMINISTRATIVE ASSISTANT - PROSTHODONTIST/EDUCATOR [address] [place] [address] [facility] Start: 07-09-2023 COVID-19 Vaccine ( season) COVID-19 Vaccine ( season) [facility] Start: 07-09-2023 Influenza vaccination [facility] Start: 07-09-2023 [facility] Start: 06-29-2023 End: 06-29-2023 Esophagogastroduodenoscopy transoral diagnostic EGD DIAGNOSTIC Nausea and vomiting, unspecified vomiting type 06/29/2023 9:54 AM EDT [facility] Gastroenterology Start: 05-11-2023 Hemoglobin A1c measurement Diabetes: Hemoglobin A1C [facility] Start: 10-19-2022 Hemoglobin A1c measurement Diabetes: Hemoglobin A1C [facility] Start: 08-08-2022 Influenza vaccination Influenza Vaccine (#1) [facility] Start: 04-23-2022 COVID-19 Vaccine (4 - Booster for Pfizer series) COVID-19 Vaccine (4 - Booster for Pfizer series) [facility] Start: 04-23-2022 COVID-19 Vaccine (4 - Pfizer series) COVID-19 Vaccine (4 - Pfizer series) [facility] Start: 12-08-2021 Creatinine measurement Creatinine monitoring [place], [place] Start: 12-08-2021 Potassium monitoring Potassium monitoring [place], [place] Start: 11-28-2021 Creatinine measurement Creatinine monitoring [place] Start: 11-28-2021 Potassium monitoring Potassium monitoring [place] Start: 09-26-2021 Creatinine measurement Creatinine monitoring [place] Start: 09-26-2021 Potassium monitoring Potassium monitoring [place] Start: 08-29-2021 Lipid panel Lipid Panel [facility] Start: 08-23-2021 Lipid panel Lipid screen [place], [place] Start: 02-21-2021 HbA1c (Bld) [Mass fraction] A1C test (Diabetic or Prediabetic) [place], [place] Start: 01-24-2021 End: 01-24-2021 Office Visit 01/24/2021 Office Visit Endocrinology Geronimo Lee MD [address] [place], [place] [phone] [facility] [place] Start: 11-23-2020 End: 11-23-2020 HbA1c (Bld) [Mass fraction] [place], [place] Comment on above: One Time for 1 Occurrences starting 11/08 until 11/23/2020 Start: 07-09-2020 Influenza vaccination Flu vaccine (#1) [place] Start: 06-26-2020 Creatinine monitoring Creatinine monitoring [facility] Start: 06-26-2020 [facility] Start: 06-20-2020 Creatinine monitoring Creatinine monitoring [facility] Start: 06-20-2020 Potassium monitoring Potassium monitoring [facility] Start: 01-22-2020 End: 01-22-2020 Office Visit 01/22/2020 Office Visit Gynecologic Oncology Justin Walsh MD [address] [facility] [place] [address] [phone] [facility] Oncology Start: 01-09-2020 End: 01-09-2020 Appointment 01/09/2020 Appointment General Surgery Justin Walsh MD [address] [facility] [place] [address] [phone] [facility] General Surgery Start: 09-16-2019 A1C test (Diabetic or Prediabetic) A1C test (Diabetic or Prediabetic) [facility] Start: 07-17-2019 End: 07-17-2019 Office Visit 07/17/2019 Office Visit Gynecologic Oncology Justin Walsh MD [address] [facility] [place] [address] [phone] [facility] Oncology Start: 07-13-2019 End: 07-13-2019 Office Visit 07/13/2019 Office Visit Gynecologic Oncology Mignon Bynum PA [address] [facility] [address] [place] [phone] [facility] Oncology Start: 07-09-2019 Influenza vaccination Flu vaccine (#1) [place] Start: 06-28-2019 End: 06-28-2019 Office Visit 06/28/2019 Office Visit Orthopedic Surgery Sergio Pisano MD [address] [facility] [address] [place] [address] [phone] [facility] [place] Start: 06-27-2019 End: 06-27-2019 Hospital Encounter [facility] Dept Comment on above: Canceled (Other) Start: 04-26-2019 Annual Wellness Visit (AWV) Annual Wellness Visit (AWV) [place], [place] Start: 2016 Breast cancer screen Breast cancer screen [place], [place] Start: 2016 Colon cancer screen colonoscopy Colon cancer screen colonoscopy [place], [place] Start: 2016 Screening for malignant neoplasm of breast Breast cancer screen [place], [place] Start: 2016 Screening for malignant neoplasm of colon Colon cancer screen colonoscopy [place] Start: 2016 Shingles (RZV) Vaccine (1 of 2) Shingles (RZV) Vaccine (1 of 2) [facility] Start: 2016 Shingles Vaccine (1 of 2) Shingles Vaccine (1 of 2) [place] Start: 2016 Zoster Vaccines (1 of 2) Zoster Vaccines (1 of 2) [facility] Start: 2016 [facility] Start: 2011 Cholesterol [Mass/volume] in Serum or Plasma Cholesterol [facility] Start: 2011 Screening for malignant neoplasm of colon [facility] Start: 2006 Screening for malignant neoplasm of breast [facility] Start: 1996 Screening for malignant neoplasm of cervix [facility] Start: 1987 Cervical cancer screen Cervical cancer screen [place], [place] Start: 1987 Screening for malignant neoplasm of cervix [facility] Start: 1985 DTaP/Tdap/Td vaccine (1 - Tdap) DTaP/Tdap/Td vaccine (1 - Tdap) [place] Start: 1985 DTaP/Tdap/Td Vaccines (1 - Tdap) DTaP/Tdap/Td Vaccines (1 - Tdap) [facility] Start: 1985 Hepatitis B Vaccine (1 of 3 - Risk 3-dose series) Hepatitis B Vaccine (1 of 3 - Risk 3-dose series) [place] Start: 1985 Hepatitis B Vaccines (1 of 3 - 19+ 3-dose series) Hepatitis B Vaccines (1 of 3 - 19+ 3-dose series) [facility] Start: 1985 Pneumococcal Vaccine: 50+ Years (1 of 2 - PCV) Pneumococcal Vaccine: 50+ Years (1 of 2 - PCV) [facility] Start: 1985 Tetanus vaccination Tetanus (Td or Tdap) Booster [facility] Start: 1985 Urine screening for protein Diabetes: Urine Protein Screening [facility] Start: 1985 [facility] Start: 1984 Diabetes: Urine Albumin-Creatinine Ratio for Kidney Health Diabetes: Urine Albumin-Creatinine Ratio for Kidney Health [facility] Start: 1984 Diabetic microalbuminuria test Diabetic microalbuminuria test [place], [place] Start: 1984 Hepatitis C screening [facility] Start: 1984 Tetanus + diphtheria + acellular pertussis vaccine (product) Tdap Booster [facility] Start: 1981 HIV screen HIV screen [place], [place] Start: 1981 HIV screening [facility] Start: 1978 Depression Monitoring Depression Monitoring [facility] Start: 1978 Depression Screening Depression Screening [facility] Start: 1978 [facility] [facility] Start: 1977 DTaP/Tdap/Td vaccine (1 - Tdap) DTaP/Tdap/Td vaccine (1 - Tdap) [place], [place] Start: 1976 [object Object] Diabetic foot exam [place], [place] Start: 1976 Diabetic foot examination [facility] Start: 1976 Diabetic retinal exam Diabetic retinal exam [place], [place] Start: 1976 Glaucoma screening Diabetes: Retinopathy Screening [facility] Start: 1976 Lipid screen Lipid screen [place], [place] Start: 1976 Preventive dental service [facility] Start: 1972 Pneumococcal 0-64 years Vaccine (1 of 1 - PPSV23) Pneumococcal 0-64 years Vaccine (1 of 1 - PPSV23) [place], [place] Start: 1972 Pneumococcal Vaccine: Pediatrics (0 to 5 Years) and At-Risk Patients (6 to 64 Years) (1 - PCV) Pneumococcal Vaccine: Pediatrics (0 to 5 Years) and At-Risk Patients (6 to 64 Years) (1 - PCV) [facility] Start: 1972 Pneumococcal Vaccine: Pediatrics (0 to 5 Years) and At-Risk Patients (6 to 64 Years) (1 of 2 - PCV) Pneumococcal Vaccine: Pediatrics (0 to 5 Years) and At-Risk Patients (6 to 64 Years) (1 of 2 - PCV) [facility] Start: 1972 [facility] Start: 1967 MMR Vaccines (1 of 1 - Standard series) MMR Vaccines (1 of 1 - Standard series) [facility] Start: 1967 [facility] Start: 04-25-1967 COVID-19 Vaccine (#1) COVID-19 Vaccine (#1) [facility] Start: 1966 Hepatitis B Vaccines (1 of 3 - 3-dose series) Hepatitis B Vaccines (1 of 3 - 3-dose series) [facility] Start: 1966 Hepatitis C screening Hepatitis C screen [place], [place] Start: 1966 HIV screening [facility] Start: 1966 Medicare Advantage Annual Wellness Visit (AWV) Medicare Advantage Annual Wellness Visit (AWV) [facility] Start: 1966 Screening for malignant neoplasm of colon [facility] Start: 1966 [facility] End: 10-19-2024 Aerobic and Anaerobic Culture with Stain [facility] Work Phone: Comment on above: Release Upon Ordering for 1 Occurrences starting 10/19/2024 Once (Lab) for 1 Occ urrences starting 10/19/2024 until 10/19/2024 Aerobic and Anaerobi c Culture with Stain Aerobic and Anaerobic Culture with Stain Microbiology Routine 10/19/2024 3:08 PM EST [facility] End: 06-14-2019 Anaerobic Culture Anaerobic Culture Microbiology Routine One Time for 1 Occurrences starting 06/14/2019 until 06/14/2019 [place] Comment on above: One Time for 1 Occurrences starting 05/2019 until 06/14/2019 Bacteria identified in Unspecified specimen by Aerobe culture Culture, Aerobic Bacteria with Gram Stain Microbiology Routine 10/19/2024 3:08 PM EST [facility] Bacteria identified in Unspecified specimen by Anaerobe culture Anaerobic culture Microbiology Routine Acute cholecystitis 10/19/2024 1:52 PM EST [facility] Bacteria identified in Unspecified specimen by Anaerobe culture Anaerobic culture Microbiology Routine 10/19/2024 3:08 PM EST [facility] End: 08-08-2023 Bacteria identified in Urine by Culture [facility] Work Phone: Comment on above: STAT (Lab) for 1 Occurrences starting until 08/08/2023 End: 07-10-2025 Bacteria identified in Urine by Culture [facility] Work Phone: Comment on above: Once (Lab) for 1 Occurrences starting until 07/10/2025 End: 10-13-2023 Blood gases, arterial measurement [facility] Work Phone: End: 08-08-2023 Blood gases, venous measurement Blood gas, venous (ACH and SBH) Lab STAT Once (Lab) for 1 Occurrences starting 08/08/2023 until 08/08/2023 [facility] Work Phone: Comment on above: Once (Lab) for 1 Occurrences starting until 08/08/2023 End: 12-09-2023 Blood gases, venous measurement Blood gas, venous (ACH and SBH) Lab STAT Once (Lab) for 1 Occurrences starting 12/09/2023 until 12/09/2023 [facility] Work Phone: Comment on above: Once (Lab) for 1 Occurrences starting until 12/09/2023 End: 09-18-2020 CBC CBC Lab Routine Tomorrow AM for 1 Occurrences starting 09/18/2020 until 09/18/2020 [facility] Comment on above: Tomorrow AM for 1 Occurrences starting 11/18/2019 until 09/18/2020 End: 09-19-2020 CBC Auto Differential CBC Auto Differential Lab Timed Tomorrow AM for 1 Occurrences starting 09/19/2020 until 09/19/2020 [facility] Comment on above: Tomorrow AM for 1 Occurrences starting 1 11/19/2019 until 09/19/2020 End: 11-25-2020 CBC Auto Differential CBC Auto Differential Lab Timed Tomorrow AM for 1 Occurrences starting 11/25/2020 until 11/25/2020 [facility] Comment on above: Tomorrow AM for 1 Occurrences starting 0 11/25/2020 until 11/25/2020 End: 09-19-2020 Comprehensive metabolic 2000 panel Comprehensive Metabolic Panel Lab Timed Tomorrow AM for 1 Occurrences starting 09/19/2020 until 09/19/2020 [facility] Comment on above: Tomorrow AM for 1 Occurrences starting 1 11/19/2019 until 09/19/2020 Comprehensive metabo lic 2000 panel Comprehensive Metabolic Panel Lab Routine Daily until discontinued starting 11/23/2020, 6 completed [facility] Comment on above: Daily until discontinued starting 2020, 6 completed End: 11-25-2020 Comprehensive metabolic 2000 panel Comprehensive Metabolic Panel Lab Timed Tomorrow AM for 1 Occurrences starting 11/25/2020 until 11/25/2020 [facility] Comment on above: Tomorrow AM for 1 Occurrences starting 0 11/25/2020 until 11/25/2020 Comprehensive Metabo lic Panel w/ Reflex to MG Comprehensive Metabolic Panel w/ Reflex to MG Lab Routine Daily until discontinued starting 06/15/2019, 6 completed [facility] Comment on above: Daily until discontinued starting 2018, 6 completed End: 06-26-2019 Culture Blood #1 Culture Blood #1 Microbiology STAT One Time for 1 Occurrences starting 06/26/2019 until 06/26/2019 [facility] Comment on above: One Time for 1 Occurrences starting 06/08 until 06/26/2019 Culture Blood #1 Culture Blood # 1 Microbiology STAT 06/26/2019 10:05 PM EDT [facility] End: 06-26-2019 Culture Blood #2 Culture Blood #2 Microbiology STAT One Time for 1 Occurrences starting 06/26/2019 until 06/26/2019 [facility] [place] Comment on above: One Time for 1 Occurrences starting 06/08 until 06/26/2019 Culture Blood #2 Culture Blood # 2 Microbiology STAT 06/26/2019 10:05 PM EDT [facility] End: 06-14-2019 Culture, Aerobic Bacteria with Gram Stai Culture, Aerobic Bacteria with Gram Stai Microbiology Routine One Time for 1 Occurrences starting 06/14/2019 until 06/14/2019 [facility] Comment on above: One Time for 1 Occurrences starting 05/2019 until 06/14/2019 End: 12-08-2020 Culture, Urine [facility] [employer] MAMARYAM Comment on above: One Time for 1 Occurrences starting 11/10 until 12/08/2020 Once for 1 Occurrenc es starting 12/08/2020 until 12/08/2020 Culture, Urine Culture, Urine Microbiology STAT 12/08/2020 5:14 PM [facility] ECG 12 lead ECG 12 lead CV E CG STAT 10/24/2024 11:04 AM [facility] Work Phone: EKG 12 [facility] Garcia End: 09-18-2020 HbA1c (Bld) [Mass fraction] Hemoglobin A1C Lab Routine One Time for 1 Occurrences starting 09/18/2020 until 09/18/2020 [facility] Comment on above: One Time for 1 Occurrences starting 09/08 until 09/18/2020 Initiate Oxygen Ther apy Protocol Initiate Oxygen Therapy Protocol Respiratory Care Routine Daily until discontinued starting 06/14/2019 [facility] Comment on above: Daily until discontinued starting 2018 End: 06-18-2019 Occult blood x 3, stool Occult blood x 3, stool Lab Routine One Time for 1 Occurrences starting 06/18/2019 until 06/18/2019 [facility] Comment on above: One Time for 1 Occurrences starting 06/08 until 06/18/2019 Oxygen therapy [[facility] Data Set] Initiate Oxygen Therapy Protocol Respiratory Care Routine Daily until discontinued starting 09/18/2020 [facility] Comment on above: Daily until discontinued starting 2019 End: 09-17-2020 POCT Glucose POCT Glucose Point of Care Testing Routine Every 30 Min for 4 Occurrences starting 09/17/2020 until 09/17/2020 [facility] [employer] MAMARYAM Comment on above: Every 30 Min for 4 Occurrences starting 09/17/2020 until 09/17/2020 POCT Glucose [facility] Comment on above: As Needed until [...] for 1 Occurrences starting 06/15/2019 until 06/15/2019 [facility] Comment on above: One Time for 1 Occurrences starting 06/2019 until 06/15/2019 End: 06-16-2019 POCT Glucose POCT Glucose Point of Care Testing Routine One Time for 1 Occurrences starting 06/16/2019 until 06/16/2019 [facility] Comment on above: One Time for 1 Occurrences starting 07/2019 until 06/16/2019 Procalcitonin Procalcitonin La b Routine Q48H until discontinued starting 06/14/2019, 3 completed [facility] [place] Comment on above: Q48H until discontinued starting 019, 3 completed End: 11-26-2020 Troponin I.cardiac [Mass/Vol] Troponin Lab Timed One Time for 1 Occurrences starting 11/26/2020 until 11/26/2020 [facility] Comment on above: One Time for 1 Occurrences starting 11/08 until 11/26/2020 Immunizations Immunization Date Immunization Notes Care Provider Argenis lopez 10-19-2024 influenza vaccine tiss-cult subunt (Flucelvax) STANDARD-DOSE injection 0.5 mL Dontrell Glozman DO Work Phone: [facility] 08-18-2023 influenza vac subuni t quadrivalent (Flucelvax) injection 0.5 mL Aaron Burgos DO Work Phone: [facility] 02-26-2022 Covid-19, Pfizer Gra y Top, Do Not Dilute, (Age 12 Y+), Im L Geronimo Lee MD Work Phone: [facility] 08-12-2021 influenza, injectabl e, quadrivalent, preservative free Geronimo Lee MD Work Phone: [facility] 08-12-2021 Rosaura Woodson Work Phone: [facility] 08-12-2021 influenza virus vacc ine, unspecified formulation Geronimo Lee MD Work Phone: [facility] 12-04-2020 Pfizer SARS-CoV-2 Vaccination Geronimo Lee MD Work Phone: [facility] 11-13-2020 Pfizer SARS-CoV-2 Vaccination Geronimo Lee MD Work Phone: [facility] 01-14-2019 influenza, injectabl e, quadrivalent, preservative free Dom Ortiz [facility], [place] 01-14-2019 Influenza, Quadv, 6 mo and older, IM, PF (Flulaval, Fluarix) Justin Walsh [facility] [place] 01-14-2019 Rosaura Vuong O Work Phone: [facility] NEGATED: Highlighted row has not occurred!10-09-2023 Influenza, injectable, Madin Tran Canine Kidney, preservative free, quadrivalent Rosaura Mustafa DO Work Phone: [facility] Comment on above: Deferred: Contraindi cation - patient received at facility Payers Date Payer Category Payer Medicaid HMO [id number] 2024 Medicare [id number] 2024 Self-pay [id number] 2024 Unknown [id number] 2022 Medicare [id number] 2022 Medicare HMO [id number] 2022 Private Health Insurance [facility] DUAL [facility] DUAL [id number] 2022-[place] [address] [address] [address] [place] [address] Medicare HMO [id number] 2022 [place] [id number] 2022-Present [address] [place] [address] Medicaid [id number] 2017 Private Health Insurance [facility] DUAL xxxxxxxxx 2017-Present [address] [place] [address] xxxxxxxxx [id number] 1959 Private Health Insurance [id number] Unknown [id number]. 462 Unknown [id number]. 462 Unknown [id number] [id number]. 462 Unknown [id number] [id number]. 462 Unknown [id number] [id number]. 462 Unknown [id number] [id number]. 462 Unknown [id number] [id number]. 462 Unknown [id number] [id number]. 462 Unknown [id number] [id number]. 462 Unknown [id number] [id number]. 462 Unknown [id number] [id number]. 462 Unknown [id number] [id number]. 462 Unknown [id number] [id number]. 462 Unknown [id number] [id number]. 462 Unknown [id number] [id number]. 462 Unknown [id number]. 462 Social History Date Type Detail Facility Start: 06-26-2019 End: 02-01-2025 Tobacco smoking status NHIS Never smoker [place], [place] Start: 06-26-2019 End: 10-19-2024 Alcohol intake No [facility] Start: 1965 Sex Assigned At Not on file M [place], [place] Start: 01-02-2020 End: 07-26-2025 Alcohol intake Current non-drinker of alcohol (finding) [place], [place] Start: 09-20-2020 End: 02-01-2025 Tobacco use and exposure Never used [place] Start: 01-30-2023 End: 03-08-2023 Exposure to SARS-CoV-2 (event) Not sure [place] Start: 1965 Sex Assigned At Male [facility] Tobacco smoking status [facility] Work Phone: Start: 03-08-2023 History SDOH Alcohol Frequency 1 [facility] Start: 03-08-2023 History SDOH Alcohol Std Drinks 0 [facility] Start: 03-08-2023 End: 10-19-2024 History of Social function [facility] How often to you hav e a drink containing alcohol? Never [facility] How many standard drinks containing alcohol do you have on a typical day? Patient does not drink [facility] Start: 08-27-2022 Gender identity Identifies as male gender (finding) [facility] Within the last year , have you been afraid of your partner or ex-partner? No [facility] Start: 1965 Sex Assigned At Female [facility] How often to you hav e a drink containing alcohol? Monthly or less [facility] How many standard drinks containing alcohol do you have on a typical day? 1 or 2 [facility] Start: 06-08-2022 End: 02-28-2025 Sex Female (finding) [facility] Do you feel stress - tense, restless, nervous, or anxious, or unable to sleep at night because your mind is troubled all the time - these days [OSQ] Only a little [facility] (I/We) worried whether (my/our) food would run out before (I/we) got money to buy more. Never true [facility] How often do you nee d to have someone help you when you read instructions, pamphlets, or other written material from your doctor or pharmacy [SILS] Sometimes [facility] NEGATED: Highlighted rowStart: NINF History of tobacco use Passive smoker [facility] Clinical Notes 11-28-2020 to 09-11-2025 Telephone Encounter - Alma Delia Trimble RN - 09/11/2025 2:48 PM ESTTelephone Encounter - Alma Delia Trimble RN - 09/11/2025 2:48 PM ESTTelephone Encounter - JEREMY Neal - 09/06/2025 9:25 AM EDT Note Date & Type Note Facility 09-11-2025 Telephone encounter Note Spoke to nurse and advised to no longer send. Nurse voiced understanding [facility] 09-11-2025 Miscellaneous Notes Spoke to nurse and advised to no longer send. Nurse voiced understanding Diabetes managed by facility provider, no need to send [facility] BGL. Thank you Images from the original note were not included. Patient's BGL documented in this encounter [facility] 09-06-2025 Telephone encounter Note Diabetes managed by facility provider, no need to send [facility] BGL. Thank you [facility] 09-06-2025 Miscellaneous Notes Diabetes managed by facility provider, no need to send [facility] BGL. Thank you Images from the original note were not included. Patient's BGL documented in this encounter [facility] 09-05-2025 Telephone encounter Note Images from the original note were not included. Patient's BGL [facility] 07-30-2025 Telephone encounter Note Faxed Recent Chart note to [employer] 07-30-2025 Miscellaneous Notes Faxed Recent Chart note to [employer] [facility] documented in this encounter [facility] 07-27-2025 Telephone encounter Note Lease fax last OV to [facility], [facility] 07-26-2025 History of Presen t illness Narrative Images from the original note were not included. [facility] ENDOCRINOLOGY [facility] [address] [place] [address] Dept: [phone] Dept Loc: [phone] Visit type: Reason for Visit: Diabetes Mellitus (Follow up) Assessment and Plan 1. Type 2 diabetes mellitus with hyperglycemia, with long-term current use of insulin ([facility] 2. Insulin resistance 3. Type 2 diabetes mellitus with peripheral neuropathy ([facility]) 4. Hypertension associated with type 2 diabetes mellitus ([facility]) 5. Type 2 diabetes mellitus with hyperlipidemia ([facility]) ([facility]) Goal A1C = 7% Lab Results Component [...] HPI PCP = Jared Guzman Referring provider: [facility] follow up 11/25/2020 Initial Nati Endo [...] stated that they are currently in the [facility]. If the patient is a minor, [...] crackers, fruit Dinner: meat, veg, carbs Salad, greek or ranch dressing Beverages: Crystal light, Diet [...] found for: CHOLHDLRATIO No results found for: [id number] No results found for: "THYROID" Imaging/Testing: I [...] directly. Electronically signed by Celina Woodruff MSN, FLEET ADMINISTRATIVE ASSISTANT, ACNS-, [facility] Clinical Nurse Specialist and Certified Diabetes Care and Shipping And Receiving Weigher on 07/27/2025 6:44 PM Dany Woodruff APRN - PATIENT SERVICES SPECIALIST [1] No Known Allergies [2] Current Outpatient [...] (HCC) Anxiety disorder Bipolar 1 disorder ([facility]) Blood circulation, collateral Cellulitis chronic L lower leg COVID 12/08/2021 Depression Diabetes mellitus ([facility]) Type II, on insulin Disease of blood and blood forming organ Endometrial carcinoma ([facility]) 11/25/2020 Endometrial hyperplasia Foot ulcer (HCC) Hx of blood clots RLE prior to amputation Hyperlipidemia Hypertension Lymphedema 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, RLE Morbidly obese ([facility]) Muscle weakness Osteomyelitis (HCC) Osteomyelitis (HCC) 2019 RLE Other lack of coordination Other specified soft tissue disorders Other symbolic dysfunctions Schizophrenia ([facility]) Sleep apnea no CPAP Venous insufficiency [4] Past Surgical History: Procedure Laterality Date ABCESS DRAINAGE Right 09/09/2018 FOOT; [facility] COLONOSCOPY 09/19/[address] Hyde COLONOSCOPY N/A 06/07/2025 Performed by Farhad Chavez MD at [facility] ENDOSCOPY DILATION AND CURETTAGE OF UTERUS 05/18/2019 ESOPHAGOGASTRODUODENOSCOPY 06/07/2025 Dr. Chavez @ [facility], no specimens HYSTEROSCOPY 12/23/2021 LEG AMPUTATION THROUGH KNEE Right 06/16/2019 UPPER GASTROINTESTINAL ENDOSCOPY N/A 06/29/2023 Dr Sergio Sibley at [facility]; no specimens WISDOM TOOTH EXTRACTION [5] Family History Problem Relation Name Age of Onset No Known Problems Mother No Known Problems Father documented in this encounter [facility] 07-24-2025 Telephone encounter Note Spoke with nurse Bales at the facility. Confirmed the appointment date and time. Agrees to bring recommended documents. The PCP is Dr Jared Guzman [facility] 07-24-2025 Miscellaneous Notes Spoke with nurse Bales [...] this encounter [facility] 07-24-2025 Telephone encounter Note Patient has appointmnet [...] may be managing insulin doses. Thank you [facility] Work Phone: 07-23-2025 Telephone encounter Note Images from the original note were not included. Patient's BGL [facility] 07-23-2025 Telephone encounter Note Spoke with PASTORA Barrera. She verbalized and understand below TE. [facility] 07-23-2025 Miscellaneous Notes Spoke with PASTORA Barrera. [...] this encounter [facility] 07-20-2025 Telephone encounter Note I reviewed blood [...] recommend decreasing doses at this time. Thanks [facility] 07-20-2025 Miscellaneous Notes I reviewed blood sugar [...] this encounter [facility] 07-19-2025 Telephone encounter Note Scanned, see in the media tab. [facility] 07-19-2025 Miscellaneous Notes Scanned, see in the media tab. Called to the facility, said they will fax it. Left a VM to faxed us the MAR and med list. Images from the original note were not included. Patient's BGL documented in this encounter [facility] 07-19-2025 Telephone encounter Note Called to the facility, said they will fax it. [facility] 07-18-2025 Telephone encounter Note Left a VM to faxed us the MAR and med list. [facility] 07-18-2025 Telephone encounter Note Images from the original note were not included. Patient's BGL [facility] 07-11-2025 Note Sinus rhythm Abnormal R-wave progression, late transition Left ventricular hypertrophy Borderline prolonged QT interval Electronically Signed On 07-11-2025 00:56:44 EDT by [facility] 07-11-2025 Note Sinus rhythm Abnormal R-wave progression, late transition Left ventricular hypertrophy Borderline prolonged QT interval Electronically Signed On 07-11-2025 00:56:44 EDT by [facility] 07-11-2025 Note IMPRESSION: Sinus rhythm Abnormal R-wave progression, late transition Left ventricular hypertrophy Borderline prolonged QT interval Electronically Signed On 07-11-2025 00:56:44 EDT by [facility] 07-10-2025 Hospital Discharg e tayla [...] this encounter [facility] 07-10-2025 Emergency department Note Pt here to the ER via EMS from [facility] c/o headache and nausea for the last couple of days. documented in this encounter [facility] 07-10-2025 Emergency department Triage note Pt here to the ER via EMS from [facility] c/o headache and nausea for the last couple of days. [facility] 07-05-2025 Telephone encounter Note Appointment scheduled on 07/26 at 11am [facility] 07-05-2025 Miscellaneous Notes Appointment scheduled on 07/26 at 11am Images from the original note were not included. Patient's BGL 04/26-07/02/2025 documented in this encounter [facility] 07-04-2025 Telephone encounter Note Images from the original note were not included. Patient's BGL 04/26-07/02/2025 [facility] 07-04-2025 Telephone encounter Note I called the facility to request another copy. [facility] 07-04-2025 Miscellaneous Notes I called the facility to request another copy. The pages are cut off I cannot see the doses completely Images from the original note were not included. Patient's BGL documented in this encounter [facility] 06-29-2025 Telephone encounter Note Downloaded blood glucose log and insulin administration MAR to media tab for the period of 06/08 through 06/29 for provider review. [facility] 06-29-2025 Miscellaneous Notes Downloaded blood glucose log and insulin administration MAR to media tab for the period of 06/08 through 06/29 for provider review. Spoke with Susan KIM at the [facility] and requested a new BGL with accompanying [...] BGL by provider. Fax number provided was [phone] Spoke with RN caring for Maria Luisa at the facility regarding need for MAR for 05/29 through 06/18 to be faxed for provider review for use of SSI and any missed doses. She states she will fax the MAR records from 05/29 - 06/18 to [phone]. Please ask for MAR and med list I need to know if SS is ever used. Thank you Images from the original note were not included. Patient's BGL documented in this encounter [facility] 06-29-2025 Telephone encounter Note Spoke with Susan KIM at the [facility] and requested a new BGL with accompanying insulin administration record for 06/08-06/29 for provider review. States she will send it herself. Will watch for information and upload into media tab. [facility] Telephone encounter Note The pages are cut off I cannot see the doses completely [employer] Phone: 06-27-2025 Telephone encounter Note Images from the original note were not included. Patient's BGL [facility] 06-26-2025 Telephone encounter Note Spoke with Sheri GUILLORY at the facility. She will re-fax the insulin administration records for 05/29-06/18 for comparison with the BG log sent previously. [facility] Telephone encounter Note Unfortunately half the document is cut off I cannot see what the Humulin U-500 base dose is, its on 1 page On the second page I can see the sliding scale [employer] [facility]: 06-22-2025 Telephone encounter Note Scanned faxed MAR from facility into media tab for dates 06/08/25 - 06/22/25 [facility] 06-21-2025 Telephone encounter Note Spoke with Sheri GUILLORY at the facility who says she will fax the MAR record for 05/29 through 06/18 for comparison with the BGL by provider. Fax number provided was [phone] [facility] 06-20-2025 Telephone encounter Note Spoke with RN caring for Maria Luisa at the facility regarding need for MAR for 05/29 through 06/18 to be faxed for provider review for use of SSI and any missed doses. She states she will fax the MAR records from 05/29 - 06/18 to [phone]. [facility] 06-20-2025 Telephone encounter Note Please ask for MAR and med list I need to know if SS is ever used. Thank you [facility] 06-19-2025 Telephone encounter Note Images from the original note were not included. Patient's BGL [facility] 06-07-2025 Telephone encounter Note Images from the original note were not included. Patient's BGL [facility] 06-07-2025 Miscellaneous Notes Images from the original note were not included. Patient's BGL documented in this encounter [facility] 06-07-2025 Nurse Note Spoke with Ninfa at [facility] and updated her about of the patient's procedures being cancelled due to low oxygen levels after the start of the EGD. Advised that per Dr. Chavez patient will need cardiac and pulmonary clearance prior to any future endoscopy procedures. See MD report. Skilled transport to arrive at 12:30 to take patient back to [facility]. At 12:55 spoke with transport company [phone] who said it would be another 30 minutes before they would arrive. Patient given shannon crackers and roselia enriqueta for complaints of hunger. [facility] 06-07-2025 Miscellaneous Notes Spoke with Ninfa at [facility] and updated her about of the patient's procedures being cancelled due to low oxygen levels after the start of the EGD. Advised that per Dr. Chavez patient will need cardiac and pulmonary clearance prior to any future endoscopy procedures. See MD report. Skilled transport to arrive at 12:30 to take patient back to [facility]. At 12:55 spoke with transport company [phone] who said it would be another 30 minutes before they would arrive. Patient given shannon crackers and roselia enriqueta for complaints of hunger. [facility] Name: Will Jacinto Procedure Date: 06/07/2025 10:37 AM Gender: Female Date of : 1965 Age: 59 Admit Type: Outpatient Note Status: Finalized Endoscopist: Farhad Chavez MD, [id number] Procedure: Upper GI endoscopy Indications: h/o anemia, [...] This was discussed with Anesthesia doctor and RESEARCH PROGRAM ASSISTANT who were in the procedure room and [...] by the physician, the nurse and the loom technician in the pre-procedure area in the procedure [...] this encounter [facility] 06-07-2025 Note Pt saturation starte d falling dropped and procedure was stopped. Procedure aborted for safety. [facility] 06-07-2025 Nurse Note Pt saturation started falling dropped and procedure was stopped. Procedure aborted for safety. [facility] 06-07-2025 Nurse Note Pt saturation started falling dropped and procedure was stopped. Procedure aborted for safety. Spoke with patient's niece Jovana Quesada regarding consent for procedure. She states that patient is able to sign his own consents. documented in this encounter [facility] 06-07-2025 Procedure note [facility] Patient Name: Will Jacinto Procedure Date: 06/07/2025 10:37 AM Gender: Female Date of : 1965 Age: 59 Admit Type: Outpatient Note Status: Finalized Endoscopist: Farhad Chavez MD, [id number] Procedure: Upper GI endoscopy Indications: h/o anemia, [...] This was discussed with Anesthesia doctor and RESEARCH PROGRAM ASSISTANT who were in the procedure room and [...] by the physician, the nurse and the loom technician in the pre-procedure area in the procedure [...] 10:37 AM [facility] 06-07-2025 Note Spoke with patient's nidarrell Quesada regarding consent for procedure. She states that patient is able to sign his own consents. [facility] 06-07-2025 Nurse Note Spoke with patient's niece Jovana Quesada regarding consent for procedure. She states that patient is able to sign his own consents. [facility] 06-07-2025 History and physical note GASTROENTEROLOGY PHYSICIAN [...] (HCC) Sleep apnea no CPAP Venous insufficiency [facility] Work Phone: 06-07-2025 Note [facility] 06-07-2025 History and physical [...] and blood forming organ Endometrial carcinoma ([facility]) 11/25/2020 Endometrial hyperplasia Foot ulcer ([facility]) Hx of blood clots RLE prior to [...] this encounter [facility] 06-04-[address] Farhad Chavez EGD/Colonoscopy Date: 06/07/25 Arrival time: 10:00 am Please report to: [place] [address] Spoke with Nabil at [facility] [place] , confirmed patient will attend scheduled procedure. All questions or concerns addressed. Pt has prep medication on hand. Prep instructions sent via [employer] if active. [facility] 06-04-[address] Farhad Chavez EGD/Colonoscopy Date: 06/07/25 Arrival time: 10:00 am Please report to: [facility] [address] [place] [address] Spoke with Nabil at [facility] , confirmed patient will attend scheduled procedure. All questions or concerns addressed. Pt has prep medication on hand. Prep instructions sent via [employer] if active. Dr. Farhad Chavez EGD/Colonoscopy Date: 06/07/25 Arrival time: 10:00 am Please report to: [facility] [address] [place] [address] Spoke with Jose Raul at [facility] , confirmed patient will attend scheduled procedure. All questions or concerns addressed. Pt has prep medication on hand. Prep instructions sent via [employer] if active. Prep instructions faxed to [facility] Attn: Jose Raul. [phone] documented in this encounter [facility] 06-01-2025 Telephone encounter Note I have reviewed [...] updated: NA [facility] 06-01-2025 Miscellaneous Notes I have reviewed the [...] this encounter [facility] 05-31-2025 Telephone encounter Note Images from the original note were not included. Patient's BGL [facility] 05-31-[address] Farhad Chavez EGD/Colonoscopy Date: . 06/07/25 Arrival time: 10:00 am Please report to: [place] [address] Spoke with Jose Raul at [facility] , confirmed patient will attend scheduled procedure. All questions or concerns addressed. Pt has prep medication on hand. Prep instructions sent via [employer] if active. Prep instructions faxed to [facility] Attn: Jose Raul. [phone] [facility] 05-18-2025 Telephone encounter Note Called halfway and talk with nurse, she don't know and transfer to hand baseball sewer, put me in hold for 25 min and never answer, if they call back please ask what they need . Thank you. [facility] 05-18-2025 Miscellaneous Notes Called halfway and talk with nurse, she don't know and transfer to hand baseball sewer, put me in hold for 25 min and never answer, if they call back please ask what they need . Thank you. Not sure what is being asked. Did not order dietary restrictions, only recommendations. Please advise! Name of caller: Lisa Contact phone number: [phone] Relationship to Patient: Nurse at Health system Provider: KELLEY Schultz Practice: Endo Chief Complaint/Reason [...] this encounter [facility] 05-18-2025 Telephone encounter Note Not sure what is being asked. Did not order dietary restrictions, only recommendations. [facility] 05-14-2025 Telephone encounter Note Please advise! [facility] 05-14-2025 Telephone encounter Note Name of caller: Lisa Contact phone number: [phone] Relationship to Patient: Nurse at Health system Provider: KELLEY Schultz Practice: Endo Chief Complaint/Reason for Call: Patient is being non compliant with no low carb diet restrictions. They are asking for an order to go back to unrestricted diet. Please advise. Best time of day caller can be reached: Any Patient advised that office/PCP has 24-48 business hours to return their call: Yes [facility] 05-07-2025 Telephone encounter Note Called patient's halfway and informed. [facility] 05-07-2025 Miscellaneous Notes Called patient's halfway and informed. Continue current doses Recommend future BGLs be sent in 4 week intervals. Or sooner if experiencing hypoglycemia or persistent elevations. Images from the original note were not included. Patient's BGL documented in this encounter [facility] 05-07-2025 Telephone encounter Note Continue current doses Recommend future BGLs be sent in 4 week intervals. Or sooner if experiencing hypoglycemia or persistent elevations. [facility] 05-07-2025 Telephone encounter Note Images from the original note were not included. Patient's BGL [facility] 05-01-2025 Telephone encounter Note Called patient nurse at halfway and informed. [facility] 05-01-2025 Miscellaneous Notes Called patient nurse at halfway and informed. Blood glucose log variable. 6/18-6/19 elevated. 6/20-6/23 at goal except for one check. Continue current doses and limit carbs/improve diet. Recommend future BGLs be sent in 4 week intervals. Or sooner if experiencing hypoglycemia or persistent elevations. Images from the original note were not included. Patient's BGL documented in this encounter [facility] 05-01-2025 Telephone encounter Note Blood glucose log variable. 6/18-6/19 elevated. 6/20-6/23 at goal except for one check. Continue current doses and limit carbs/improve diet. Recommend future BGLs be sent in 4 week intervals. Or sooner if experiencing hypoglycemia or persistent elevations. [facility] 04-30-2025 Telephone encounter Note Images from the original note were not included. Patient's BGL [facility] 04-20-2025 Telephone encounter Note Called and relayed the TE below to the pt's nurse. [facility] 04-20-2025 Miscellaneous Notes Called and relayed the TE below to the pt's nurse. Continue current doses. Future blood glucose log's requested to have 2 weeks of data. BGL downloaded in media for your review. Thanks documented in this encounter [facility] 04-19-2025 Miscellaneous Notes Continue current doses. Future blood glucose log's requested to have 2 weeks of data. BGL downloaded in media for your review. Thanks documented in this encounter [facility] 04-19-2025 Telephone encounter Note Continue current doses. Future blood glucose log's requested to have 2 weeks of data. [facility] 04-17-2025 Telephone encounter Note BGL downloaded in media for your review. Thanks [facility] 04-06-2025 Telephone encounter Note Images from the original note were not included. Faxed BG recommendation to [facility] at fax #: [phone]. [facility] 04-06-2025 Miscellaneous Notes Images from the original note were not included. Faxed BG recommendation to [facility] at fax #: [phone]. Good Afternoon, I reviewed blood sugars for Maria Luisa, and they are mostly stable. There are no hypoglycemic events and blood sugars are not in the 300s on this log which is fantastic. No changes recommended at this time. Thanks! Images from the original note were not included. 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 Please be advised. Best time of day caller can be reached: Any Patient advised that office/PCP has 24-48 business hours to return their call: Yes documented in this encounter [facility] 04-06-2025 History of Presen t illness Narrative Images from the original note were not included. [facility] [place] [address] [place] [address] Dept: [phone] Dept Loc: [phone] Visit type: Established patient Reason for Visit: Follow-up and Diabetes Mellitus Assessment and Plan 1. Type 2 diabetes mellitus with hyperglycemia, with long-term current use of insulin ([facility]) - AMB POC HEMOGLOBIN A1C - Comprehensive metabolic panel - Microalbumin / creatinine urine ratio 2. Type 2 diabetes mellitus with diabetic autonomic neuropathy, with long-term current use of insulin ([facility]) 3. Hypertension associated with type 2 diabetes mellitus ([facility]) 4. Mixed diabetic hyperlipidemia associated with type [...] sugar control may prevent worsening of neuropathy. aJmilah DA SILVA 06/2019. Microalbuminuria: Counseled patient on [...] is Jared Guzman Referring is PCP Previous Physician'S Assistant: INGA Initial [facility] visit: [...] fingers, couple slices of pizza Meats, Salad, greek or ranch dressing Beverages: Crystal light, Diet [...] absence of other toe(s), unspecified side ([facility]) Anxiety disorder Bipolar 1 disorder ([facility]) Blood circulation, collateral Cellulitis chronic L lower leg COVID 12/08/2021 Depression Diabetes mellitus ([facility]) Type II, on insulin Disease of blood and blood forming organ Endometrial carcinoma ([facility]) 11/25/2020 Endometrial hyperplasia Foot ulcer ([facility]) Hx of blood clots RLE prior to amputation Hyperlipidemia Hypertension Lymphedema 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, RLE Morbidly obese ([facility]) Muscle weakness Osteomyelitis ([facility]) Osteomyelitis ([facility]) 2019 RLE Other lack of coordination Other specified soft tissue disorders Other symbolic dysfunctions Schizophrenia ([facility]) Sleep apnea no CPAP Venous insufficiency Social [...] ENDOSCOPY N/A 06/29/2023 Dr Sergio Sibley at [facility]; no specimens WISDOM TOOTH EXTRACTION Family [...] found for: CHOLHDLRATIO No results found for: [id number] Imaging/Testing: Portions of the information within this encounter were entered using an electronic dictation system. Best attempts were made to edit/proofread the information prior to note completion. Despite the review of information, some errors may remain. If there are questions related to the information contained within the note please contact the signing physician directly. documented in this encounter [facility] 04-05-2025 Telephone encounter Note Good Afternoon, I reviewed blood sugars for Maria Luisa, and they are mostly stable. There are no hypoglycemic events and blood sugars are not in the 300s on this log which is fantastic. No changes recommended at this time. Thanks! [facility] 04-05-2025 Telephone encounter Note Images from the original note were not included. 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 Please be advised. Best time of day caller can be reached: Any Patient advised that office/PCP has 24-48 business hours to return their call: Yes [facility] 02-27-2025 Telephone encounter Note Images from the original note were not included. Patient's BGL [facility] 02-27-2025 Miscellaneous Notes Images from the original note were not included. Patient's BGL documented in this encounter [facility] 02-16-2025 Telephone encounter Note [facility] fax [facility]: [phone]. [facility] 02-16-2025 Miscellaneous Notes Faxed letter to [facility] at fax #: [phone]. I reviewed the blood glucose log. Blood [...] included. Patient's BGL documented in this encounter [facility] 02-15-2025 Telephone encounter Note I reviewed the blood glucose log. Blood sugars remain variable. Please increase U500 insulin to 150 before breakfast, 130 before lunch and 150 before dinner. If blood sugar before meal is 90-120, give half dose If less than 90 and patient eating little carbohydrates for meal, hold u500 dose. Thank you, JEREMY Schuster CNP [facility] 02-15-2025 Telephone encounter Note Images from the original note were not included. Patient's BGL [facility] 02-13-2025 Telephone encounter Note Called [facility] at [place] to offer cancel the [facility] visit per provider. Visit canceled. [facility] 02-13-2025 Miscellaneous Notes Called [facility] to offer cancel the [facility] visit per provider. Visit canceled. Lung nodule stable-does not need f/up CT reviewed-from Oct. He declined sleep med referral. I do not have to see him. I would recommend that they cancel f/up. Nodule unchanged for 2 yrs.. Nurse from [facility] called to schedule Annual follow up. Follow up scheduled for 03/02/2025. Patient is non weight bearing and uses a [facility]. Further question is whether they bring with [facility] or ambulance cot. Please advise. [facility] Radiology called stating that CT chest wo IV contrast order will before its completion. Requested new order to be placed. Please advise. documented in this encounter [facility] 02-12-2025 Note Lung nodule stable-d oes not need f/up CT reviewed-from Oct. He declined sleep med referral. I do not have to see him. I would recommend that they cancel f/up. Nodule unchanged for 2 yrs.. [facility] 02-12-2025 Telephone encounter Note Lung nodule stable-does not need f/up CT reviewed-from Oct. He declined sleep med referral. I do not have to see him. I would recommend that they cancel f/up. Nodule unchanged for 2 yrs.. [facility] [employer] Work Phone: 02-12-2025 Miscellaneous Notes Lung nodule stable-does not need f/up CT reviewed-from Oct. He declined sleep med referral. I do not have to see him. I would recommend that they cancel f/up. Nodule unchanged for 2 yrs.. Nurse from [facility] called to schedule Annual follow up. Follow up scheduled for 03/02/2025. Patient is non weight bearing and uses a deedee. Further question is whether they bring with deedee or ambulance cot. Please advise. [facility] Radiology called stating that CT chest wo IV contrast order will before its completion. Requested new order to be placed. Please advise. documented in this encounter [facility] 02-12-2025 Telephone encounter Note Nurse from [facility] called to schedule Annual follow up. Follow up scheduled for 03/02/2025. Patient is non weight bearing and uses a deedee. Further question is whether they bring with deedee or ambulance cot. Please advise. [facility] 02-09-2025 Telephone encounter Note Faxed new orders to [facility] at fax #: [phone]. [facility] 02-09-2025 Miscellaneous Notes Faxed new orders to [facility] at fax #: [phone]. I reviewed blood sugars. Blood sugars are [...] this encounter [facility] 02-08-2025 Telephone encounter Note I reviewed blood [...] 108, 194 [facility] 02-08-2025 Miscellaneous Notes I reviewed blood sugars. [...] this encounter [facility] 02-08-2025 Telephone encounter Note [facility] Radiology called stating that CT chest wo IV contrast order will before its completion. Requested new order to be placed. Please advise. [facility] 02-08-2025 Miscellaneous Notes [facility] Radiology called stating that CT chest wo IV contrast order will before its completion. Requested new order to be placed. Please advise. documented in this encounter [facility] 02-07-2025 Telephone encounter Note Images from the original note were not included. Patient's BGL [facility] 02-01-2025 History of Presen t illness Narrative Vascular Surgery Outpatient Consultation Chief Complaint Patient presents with New Patient Dr. Guzman/ venous insufficiency, arterial occlusion? Reason for Consult: PVD Requesting Physician: Dr. Guzman HISTORY OF PRESENTILLNESS: The patient is a 59 y.o. adult with significant medical hx listed below, who is here for evaluation of PAD. Pt is from [facility]. He is in a wheelchair. He states [...] absence of other toe(s), unspecified side ([facility]) Anxiety disorder Bipolar 1 disorder ([facility]) Blood circulation, collateral Cellulitis chronic L lower leg COVID 12/08/2021 Depression Diabetes mellitus ([facility]) Type II, on insulin Disease of blood and blood forming organ Endometrial carcinoma ([facility]) 11/25/2020 Endometrial hyperplasia Foot ulcer ([facility]) Hx of blood clots RLE prior to amputation Hyperlipidemia Hypertension Lymphedema 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, RLE Morbidly obese ([facility]) Muscle weakness Osteomyelitis ([facility]) Osteomyelitis ([facility]) 2019 RLE Other lack of coordination Other specified soft tissue disorders Other symbolic dysfunctions Schizophrenia ([facility]) Sleep apnea no CPAP Venous insufficiency Past Surgical History: Past Surgical History: Procedure Laterality Date ABCESS DRAINAGE Right 09/09/2018 FOOT; ACH COLONOSCOPY 09/19/[address] Hyde DILATION AND CURETTAGE OF UTERUS 05/18/2019 HYSTEROSCOPY 12/23/2021 LEG AMPUTATION THROUGH KNEE Right 06/16/2019 UPPER GASTROINTESTINAL ENDOSCOPY N/A 06/29/2023 Dr Sergio Sibley at [facility]; no specimens WISDOM TOOTH EXTRACTION Current [...] meal, hold u500 dose. 01/01/25 Margo Guerrero, FLEET ADMINISTRATIVE ASSISTANT - PROSTHODONTIST/EDUCATOR lactulose (Kristalose) 20 g packet Take 20 [...] file Stress: No Stress Concern Present (10/19/2024) [employer] - Occupational Stress Questionnaire Feeling of Stress : Only a little Social Connections: Unknown (10/19/2024) Social Connection and Isolation Panel [NHANES] Frequency of Communication with Friends and Family: Three times a week Frequency of Social Gatherings with Friends and Family: Once a week Attends Scientology Services: 1 to 4 times per year [...] This Visit Circulatory PAD (peripheral artery disease) ([facility]) - Primary Relevant Orders Vascular US lower extremity arterial PVR Other Visit Diagnoses Hx of AKA (above knee amputation), right ([facility]) Lymphedema of left leg Morbid obesity ([facility]) Pt with hx of right AKA and [...] this encounter [facility] 01-31-2025 Telephone encounter Note Called [facility] rica/jesus Moise released message as written, she stated that she understood. [facility] 01-31-2025 Miscellaneous Notes Called [facility] rica/jesus Moise released message as written, she [...] this encounter [facility] 01-30-2025 Telephone encounter Note Blood sugars are extremely variable. Breakfast blood sugars can vary between 101-304 Lunch blood sugars between 135-308 Dinner variations between 93-336 Insulin doses can not be modified for riskof hypoglyamcia or hyperglycemia. Limit oral intake to 60 grams of carbs per meal and 15 grams of carbs/snack. [facility] 01-29-2025 Telephone encounter Note Images from the original note were not included. Patient's BGL [facility] 01-19-2025 Telephone encounter Note Faxed orders to [facility] at fax #: [phone]. [facility] 01-19-2025 Miscellaneous Notes Faxed orders to [facility] at fax #: [phone]. I reviewed blood sugar logs. Blood sugars [...] this encounter [facility] 01-17-2025 Telephone encounter Note I reviewed blood [...] medication doses. [facility] 01-15-2025 Telephone encounter Note Images from the original note were not included. Patients BGL [facility] 01-02-2025 Telephone encounter Note Labs Noted [facility] 01-02-2025 Miscellaneous Notes Labs Noted Images from the original note were not included. Requested BGLs and a recent CMP was received , please advise. documented in this encounter [facility] 01-01-2025 Telephone encounter Note Images from the original note were not included. Requested BGLs and a recent CMP was received , please advise. [facility] 01-01-2025 History of Presen t illness Narrative Images from the original note were not included. [facility] ENDOCRINOLOG[facility] - [place] [address] [facility] [address] [facility] [address] Dept: [phone] Dept Loc: [phone] Visit type: Established patient Reason for Visit: Hospital Follow-up, Diabetes Mellitus, and Hyperglycemia Assessment and Plan 1. Type 2 diabetes mellitus with hyperglycemia, with long-term current use of insulin ([facility]) - Microalbumin / creatinine urine ratio 2. Type 2 diabetes mellitus with diabetic autonomic neuropathy, with long-term current use of insulin ([facility]) 3. S/P AKA (above knee amputation) unilateral, right ([facility]) 4. Mixed hyperlipidemia - Lipid panel 5. Microalbuminuria 6. Essential hypertension 7. Class 3 severe obesity due to excess calories with serious comorbidity and body mass index (BMI) of 45.0 to 49.9 in adult ([facility]) A1c 6.9 as of 10/19/2024. Patient hospitalized [...] is Jared Guzman Referring is PCP Previous Physician'S Assistant: INGA Initial [facility] office visit: [...] fingers, couple slices of pizza Meats, Salad, greek or ranch dressing Beverages: Crystal light, Diet [...] absence of other toe(s), unspecified side ([facility]) Anxiety disorder Bipolar 1 disorder ([facility]) Blood circulation, collateral Cellulitis chronic L lower leg COVID 12/08/2021 Depression Diabetes mellitus ([facility]) Type II, on insulin Disease of blood and blood forming organ Endometrial carcinoma ([facility]) 11/25/2020 Endometrial hyperplasia Foot ulcer ([facility]) Hx of blood clots RLE prior to amputation Hyperlipidemia Hypertension Lymphedema 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, RLE Morbidly obese ([facility]) Muscle weakness Osteomyelitis ([facility]) Osteomyelitis ([facility]) 2019 RLE Other lack of coordination Other specified soft tissue disorders Other symbolic dysfunctions Schizophrenia ([facility]) Sleep apnea no CPAP Venous insufficiency Social History Tobacco Use Smoking status: Never Smokeless tobacco: Never Substance Use Topics Alcohol use: No Past Surgical History: Procedure Laterality Date ABCESS DRAINAGE Right 09/09/2018 FOOT; ACH COLONOSCOPY 09/19/[address] Hyde DILATION AND CURETTAGE OF UTERUS 05/18/2019 HYSTEROSCOPY 12/23/2021 LEG AMPUTATION THROUGH KNEE Right 06/16/2019 UPPER GASTROINTESTINAL ENDOSCOPY N/A 06/29/2023 Dr Sergio Sibley at [facility]; no specimens WISDOM TOOTH EXTRACTION Family [...] found for: CHOLHDLRATIO No results found for: [id number] Imaging/Testing: Portions of the information within this encounter were entered using an electronic dictation system. Best attempts were made to edit/proofread the information prior to note completion. Despite the review of information, some errors may remain. If there are questions related to the information contained within the note please contact the signing physician directly. documented in this encounter [facility] 01-01-2025 Instructions JEREMY Vincent CNP - 01/01/2025 11:00 AM EST Please send Ophthalmology Note once completed this year. Please note if any insulin doses are held on blood log. documented in this encounter [facility] 12-29-2024 Telephone encounter Note Called [facility] mckeon/jesus Ocasio released message as written, no insulin has been held. [facility] 12-29-2024 Miscellaneous Notes Called [facility] s/w Ninfa [...] Name of caller: Ninfa Contact phone number: [phone] Relationship to Patient: [facility] Provider: KRANTHI Guerrero Practice: [facility] Endocrinology Chief Complaint/Reason for Call: Ninfa states [...] included. Faxed orders from [facility] I have reviewed the pt's glucose [...] this encounter [facility] 12-27-2024 Telephone encounter Note Roberto Ninfa, I [...] doses. Thanks! [facility] 12-27-2024 Miscellaneous Notes Hi Ninfa, I received [...] Name of caller: Ninfa Contact phone number: [phone] Relationship to Patient: Preethi Frias Provider: KRANTHI Guerrero Practice: [facility] Endocrinology Chief Complaint/Reason for Call: Ninfa states [...] included. Faxed orders from [facility] I have reviewed the pt's glucose [...] included. Patients BGL documented in this encounter [facility] 12-22-2024 Telephone encounter Note Please advise. [facility] 12-22-2024 Miscellaneous Notes Please advise. Name of caller: Ninfa Contact phone number: [phone] Relationship to Patient: [facility] Provider: KRANTHI Guerrero Practice: [facility] Endocrinology Chief Complaint/Reason for Call: Ninfa states [...] note were not included. Faxed orders from [facility] to [facility] I have reviewed the pt's glucose [...] included. Patients BGL documented in this encounter [facility] 12-22-2024 Telephone encounter Note Name of caller: Ninfa Contact phone number: [phone] Relationship to Patient: [facility] Provider: KRANTHI Guerrero Practice: [facility] Endocrinology Chief Complaint/Reason for Call: Ninfa states she would like to know at what point should they hold the insulin regular (HumuLIN R) 500 UNIT/ML CONCENTRATED injection for the patient. Please review. Best time of day caller can be reached: any Patient advised that office/PCP has 24-48 business hours to return their call: Yes [facility] 12-22-2024 Telephone encounter Note Images from the original note were not included. Faxed orders from [facility] to [facility] 12-21-2024 History of Presen t illness Narrative Patient was verified by name and . Images from the original note were not included. [facility] GASTROENTEROLOGY - [address] [address] Dept: [phone] Dept Loc: [phone] Visit type: New Reason for Visit: New [...] cholecystitis without obstruction BMI 50.0-59.9, adult ([facility]) 59 year old male referred by Rosy Ibarra CNP, re: calculus of gallbladder without cholecystitis without obstruction. Patient hospitalized 10/18/2024-10/23/2024 @ [facility] 2/2 acute cholecystitis. Blood sugars uncontrolled [...] patient's first colonoscopy --referral previously placed to [facility] Advised patient to call office [...] cholecystitis without obstruction. He presents from facility, [facility] (residing since 2018). He has pmh DM2, morbid obesity, bipolar, schizophrenia, JOHN, lymphedema, HTN, diabetic neuropathy, and hx osteomyelitis of RLE with right AKA. Patient was hospitalized 10/18/2024-10/23/2024 at [facility] related to acute cholecystitis. Due to [...] to surgical intervention. He was referred to [facility]. Presently denies nausea and vomiting. [...] Medium Sepsis without acute organ dysfunction ([facility]) 10/07/2023 Priority: Medium Abdominal pain 08/19/2023 Priority: Medium Upper abdominal pain 08/17/2023 Priority: Medium Chest pain 06/28/2023 Priority: Medium Chest pain, unspecified type 06/28/2023 Priority: Medium Hypertension 11/25/2020 Priority: Medium Hyperlipidemia 10/07/2021 Thickened endometrium 11/26/2020 Complex endometrial hyperplasia with atypia 11/26/2020 Diabetic gastroparesis associated with type 2 diabetes mellitus ([facility] ([facility]) 11/26/2020 Endometrial carcinoma ([facility]) 11/25/2020 Endometrial hyperplasia 11/25/2020 Diabetic hyperosmolar non-ketotic state ([facility]) ([facility]) 11/25/2020 Chronic acquired lymphedema 11/25/2020 Chronic osteomyelitis ([facility]) ([facility]) 11/25/2020 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 ([facility]) 11/25/2020 Type 2 diabetes mellitus with hyperglycemia, with long-term current use of insulin ([facility]) 11/25/2020 Hyperglycemia 11/25/2020 S/P AKA (above knee amputation) unilateral, right ([facility]) 11/25/2020 Ileus ([facility]) ([facility]) 09/27/2020 Esophagitis 09/22/2020 Nausea and vomiting 09/22/2020 Diabetic foot infection ([facility]) 06/14/2019 Post-menopausal bleeding 05/16/2019 Cellulitis 01/17/2019 Class 3 severe obesity due to excess calories with serious comorbidity and body mass index (BMI) of 60.0 to 69.9 in adult ([facility]) 01/13/2019 Left leg cellulitis 01/11/2019 Cellulitis and [...] negative sonographic Caldwell's sign reported by the radiological technologist. Pancreas: Largely obscured by bowel gas. [...] Physician MD MUNIZ REYNALDO C. Accession Number [id number] CPT4 Codes 00372 () Reason For Exam nausea, diabetees Report [...] 4:03 PM 12/21/24 documented in this encounter [facility] 12-21-2024 Instructions JEREMY Kinsey CNP - 12/21/2024 8:30 AM EST --Please call office with any questions or concerns! [phone] --Schedule EGD (upper endoscopy) and colonoscopy for [...] be sent through Care Everywhere.Upper GI Endoscopy ([place])Colonoscopy ([place])documented in this encounter [facility] 12-21-2024 Telephone encounter Note I have reviewed [...] will assist with stabilizing blood sugars. Thanks! [facility] 12-20-2024 Telephone encounter Note Images from the original note were not included. Patients BGL [facility] 12-07-2024 History of Presen t illness Narrative Images from the original note were not included. Lilo Rizo MD General Surgery Outpatient Post-Operative/Follow Up Office Note Patient ID: Will Jacinto [id number] 59 y.o. 1965 Interval History 12/07/24: Patient [...] ENDOSCOPY N/A 06/29/2023 Dr Sergio Sibley at [facility]; no specimens WISDOM TOOTH EXTRACTION Medications [...] 3 times daily. 11/28/24 Yes Margo Guerrero FLEET ADMINISTRATIVE ASSISTANT - PROSTHODONTIST/EDUCATOR lisinopril 40 MG tablet Take 0.5 tablets [...] 12/01/24 12/08/24 Yes Rosy Ibarra APRN - PROSTHODONTIST/EDUCATOR pantoprazole (ProtoNix) 40 MG EC tablet Take [...] No Stress: No Stress Concern Present (10/19/2024) [employer] - Occupational Stress Questionnaire Feeling of Stress : Only a little Social Connections: Unknown (10/19/2024) Social Connection and Isolation Panel [NHANES] Frequency of Communication with Friends and Family: Three times a week Frequency of Social Gatherings with Friends and Family: Once a week Attends Scientology Services: 1 to 4 times per year [...] Behavior normal. Orders Placed This Encounter Procedures [facility] ASSESSMENT AND PLAN: [...] this encounter [facility] 12-06-2024 Telephone encounter Note LVM with halfway(primary number in account) for television producer to call back to schedule follow up appointment with Herber. [facility] 12-06-2024 Miscellaneous Notes LVM with halfway(primary number in account) for television producer to call back to schedule follow up [...] this encounter [facility] 12-01-2024 Note [facility] Sys tem [facility] 12-01-2024 Telephone encounter Note Images from the original note were not included. Faxed new insulin order to [facility] at fax #: [phone]. [facility] 12-01-2024 Miscellaneous Notes Images from the original note were not included. Faxed new insulin order to [facility] at fax #: [phone]. I have reviewed the pt's glucose log. [...] this encounter [facility] 12-01-2024 Note IMPRESSION: Sinus rhythm Abnormal R-wave progression, late transition Left ventricular hypertrophy Borderline prolonged QT interval Electronically Signed On 12-01-2024 00:32:34 EST by Aaron Burgos [facility] 11-30-2024 Note [facility] 11-28-2024 Telephone encounter Note I have reviewed the pt's glucose log. Based on interpretation of the FSBS data I recommend the following changes to the pt's antihyperglycemic regimen: Please increase Humulin u500 to 140 units three times daily before meals. Med rec updated: Yes [facility] 11-28-2024 Miscellaneous Notes I have reviewed the [...] included. Patient's BGL documented in this encounter [facility] 11-28-2024 Telephone encounter Note Images from the original note were not included. Patients BGL [facility] 11-22-2024 Telephone encounter Note I have reviewed [...] remain stable. [facility] 11-22-2024 Telephone encounter Note Unable to reach Suri at [facility] to reschedule appt with Makayla Guerrero on 11/27/2024. Called [facility] again at [phone] and spoke to Quiana again. Rescheduled pt to 01/01/25 and per Quiana [facility] will call if there is a problem with this date/time. [facility] 11-22-2024 Miscellaneous Notes Unable to reach Suri at [facility] to reschedule appt with Makayla Guerrero on 11/27/2024. Called [facility] again at [phone] and spoke to Quiana again. Rescheduled pt to 01/01/25 and per Quiana [facility] will call if there is a problem with this date/time. documented in this encounter [facility] 11-21-2024 Telephone encounter Note Called the halfway and spoke with the pts nurse nabil, [...] she understood. [facility] 11-21-2024 Miscellaneous Notes Called the halfway and spoke with the pts nurse nabil, [...] this encounter [facility] 11-21-2024 Telephone encounter Note Images from the original note were not included. Patient's BGL [facility] 11-20-2024 Telephone encounter Note Addendum completed. Sending message to provider as FYI, please indicate if/when patient needs fu with provider to review. Will forward to staff to schedule if indicated. Thank you. [facility] 11-20-2024 Miscellaneous Notes Addendum completed. Sending message [...] this encounter [facility] 11-19-2024 Telephone encounter Note I have reviewed the pt's glucose log. Based on interpretation of the FSBS data I recommend the following changes to the pt's antihyperglycemic regimen: Blood sugars are variable with 5 doses recently held. Can we clarify if patient has been sick or had decreased appetite that caused recent change in insulin needs? [facility] Work Phone: 11-19-2024 Miscellaneous Notes I have [...] included. Patient's BGL documented in this encounter [facility] 11-15-2024 Telephone encounter Note Images from the original note were not included. Patient's BGL [facility] 11-14-2024 Telephone encounter Note Noted. Request emailed to radiology team. [employer] 11-14-2024 Miscellaneous Notes Noted. Request emailed to [...] this encounter [facility] 11-14-2024 History of Presen t illness Narrative Images from the original note were not included. Asuncion Valencia APRN-[facility] General Surgery Outpatient Post-Operative/Follow Up Office Note Patient ID: Will Jacinto [id number] 59 y.o. 1965 This is a 59 [...] 06/16/2019 UPPER GASTROINTESTINAL ENDOSCOPY N/A 06/29/2023 Dr Sregio Sibley at [facility]; no specimens WISDOM TOOTH EXTRACTION Medications [...] No Stress: No Stress Concern Present (10/19/2024) [employer] - Occupational Stress Questionnaire Feeling of Stress : Only a little Social Connections: Unknown (10/19/2024) Social Connection and Isolation Panel [NHANES] Frequency of Communication with Friends and Family: Three times a week Frequency of Social Gatherings with Friends and Family: Once a week Attends Scientology Services: 1 to 4 times per year [...] this encounter [facility] 11-13-2024 Telephone encounter Note Patient appeared on [...] with provider. [facility] 11-12-2024 Hospital Discharg e instructions JEREMY Hilliard CNP - 11/12/2024 11:44 PM EST The drain coming out after 3+ weeks is okay at this time CT and labs are unremarkable patient can follow-up in the surgery office as an outpatient. The following attachments cannot be sent through Care Everywhere.Gallstones Discharge Instructions ([place] Islander)documented in this encounter [facility] 11-12-2024 Emergency department Note Emergency Department Encounter [facility] ED Patient: Will Jacinto : 1965 [...] dictating provider for clarification.) Virgil Mederos MD [facility] Virgil Mederos MD 11/12/242219 documented in this encounter [facility] 11-12-2024 Physician Emergency department Note Emergency Department Encounter [facility] ED Patient: Will Jacinto : 1965 [...] for clarification.) Virgil Mederos MD Acute Care [facility] Virgil Mederos MD 11/12/242219 -[facility] [employer] Phone: 11-10-2024 History of Presen t illness Narrative Images from the original note were not included. Asuncion Valencia APRN-[facility] General Surgery Outpatient Post-Operative/Follow Up Office Note Patient ID: Will Jacinto [id number] 59 y.o. 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 01/11/24 Mateo Espitai MD FLUoxetine (PROzac) 40 MG capsule Take [...] Patient not taking: Reported on 02/11/2024 10/16/23 Macrio Armando MD magnesium hydroxide (Milk of Magnesia) [...] No Stress: No Stress Concern Present (10/19/2024) [employer] - Occupational Stress Questionnaire Feeling of Stress : Only a little Social Connections: Unknown (10/19/2024) Social Connection and Isolation Panel [NHANES] Frequency of Communication with Friends and Family: Three times a week Frequency of Social Gatherings with Friends and Family: Once a week Attends Scientology Services: 1 to 4 times per year [...] this encounter [facility] 10-30-2024 Telephone encounter Note Released message to nurse [facility] [employer] 10-30-2024 Miscellaneous Notes Released message to nurse BG log reviewed. No changes to current meds. Send log as needed; otherwise, has appt 11/27 with Ana Maria. Please remind SNF to send BGL and MAR to visit. Thank you! Images from the original note were not included. Patient's BGL documented in this encounter [facility] 10-30-2024 Telephone encounter Note BG log reviewed. No changes to current meds. Send log as needed; otherwise, has appt 11/27 with Ana Maria. Please remind SNF to send BGL and MAR to visit. Thank you! [employer] Work Phone: 10-30-2024 Telephone encounter Note Images from the original note were not included. Patient's BGL [facility] 10-24-2024 Telephone encounter Note Shayy called back we scheduled an appointment with Ana Maria on 11/27/24 and another one on 03/27/25 with Thalia. [facility] 10-24-2024 Miscellaneous Notes Shayy called back we scheduled an appointment with Ana Maria on 11/27/24 and another one on 03/27/25 with Thalia. Called Forbesgómez Frias at [phone] and spoke to Quiana who states that I need to to speak to Suri, and she is currently out of the office. Per Quiana, she will have [facility] call back to schedule. Direct phone number to the [place] office was given. Needs to be seen for follow up with any provider, will need ECF to arrange transportation so that patient can be seen in office ans no longer available to manage over the phone documented in this encounter [facility] 10-24-2024 Hospital Discharg e instructions Baldev Ortiz MD - 10/24/2024 12:53 PM EST Please return to the Emergency Room if you have dizziness, shortness of breath, falls, new or worsening symptoms. documented in this encounter [facility] 10-24-2024 Emergency department Note Pt placed on bedpan, urine sample collected and sent to lab. [facility] 10-24-2024 Emergency department Note Pt placed on [...] this encounter [facility] 10-24-2024 Emergency department Note Pt provided with sandwich and pop, ok per Dr Mixon [facility] 10-24-2024 Emergency department Note Per pt [...] feeling cold. [facility] 10-24-2024 Emergency department Note Pt arrives by [facility] for blood in urine and change in mental status. Pt has chronic lewis and has blood present. BP elevated, BG 154 (low per SNF because pt is normally in 300 range). Pt is DNR-CCA. [facility] 10-24-2024 Telephone encounter Note Called Forbes Altagracia at [phone] and spoke to Quiana who states that I need to to speak to Suri, and she is currently out of the office. Per Quiana, she will have [facility] call back to schedule. Direct phone number to the [place] office was given. [facility] 10-23-2024 Nurse Note Report called to Nabil GUILLORY at [facility]. [facility] 10-23-2024 Nurse Note Report called to Nabil GUILLORY at [facility]. Report called to [address] [place] [address] for transfer. Notified Lisa Lopes APRN and Dr. Thomas regarding patients BS. New orders placed. documented in this encounter [facility] 10-23-2024 Note Formatting of this n ote might be different from the original. Discharge med list transmitted to return back to [facility] via [facility] per TCC request. [facility] 10-23-2024 Note Formatting of this n ote might be different from the original. Discharge med list transmitted to return back to [facility] via [facility] per [facility] request. [facility] 10-23-2024 Miscellaneous Notes Discharge med list transmitted to return back to [facility] via [facility] per TCC request. Asked by [facility] to set transport to [facility]. The BLS Vehicle you requested for Will Batista in unit/room [facility] [id number] on 10/23/2024 is scheduled to arrive at 2:30pm EST! [facility] is handling this ride and you can contact them at . Pt, nurse, unit sec, TCC, and facility informed of time. DC orders in and signed by Dr. Thomas. CORPORATE BANKING OFFICER set up transport. [facility] tasked [facility] to [facility] info [facility] [...] Maintained or Improved Outcome: Progressing Did update [facility] via [facility] that attending would like patient to return to their facility tomorrow on po antibiotics. Will have TCC coverage for tomorrow follow for reply. Patient is long-term at the facility and does not need auth to return. Care Management Progress Note Pt remains on 2E. Endo, ID, gen surg, and gastro following. Biliary drain in place, culture in process. Receiving IV ATB. Fecal occult stool positive. Discharge plan is back to [facility] when medically ready. He is a bedhold and will not need auth to return unless he goes back as skilled. lean manager to follow and assist as needed. Length of Stay (Days): 2 GMLOS: 3.5 Problem: Potential for Compromised Skin Integrity Goal: Skin Integrity is Maintained or Improved Outcome: Progressing Problem: Urinary Incontinence Goal: Perineal skin integrity is maintained or improved Outcome: Progressing Sent updated notes to return back to [facility] per [facility] request. Await review and response regarding ability to accept. TCC notified. Referral placed to return back to [facility] via [facility] per TCC request. Await review and response regarding ability to accept. TCC notified. Care Managment Initial Assessment Date: 10/19/2024 Patient Name: Will Jacinto : 1965 Patient Information Source of Information: Patient Cognition/Language: WFL - Within Functional Limits Permission given to speak with patient ambulatory service representative/caregiver as indicated: Confirmation of Payer with patient/family: Payer Name: : Confirmation of Primary Care Physician: Primary Caregiver: Other (Comment) (Facility staff) If assistance needed, confirmed caregiver ready, willing and able to care for patient at discharge: Confirmed with: Living Arrangements Current Residence: Number of Floors Number of Entry Steps: Bed/Bath Levels: Facility: [facility] Facility Name: [facility] Plan to Return: Yes Lives [...] Plan Patient expects to be discharged to: [facility] Discharge Planning Actions: Continue to follow Patient's Choice Rights and [employer] and Collaborative Relationships Disclosed as Indicated for Post-Acute Care: Interdisciplinary Team Engagement: Social Work Referral for: Additional Information: Pt admitted to for gall bladder inflammation. Met with pt at bedside, introduced self and explained role. Pt has insurance with RX coverage, active with PCP. He is a LTC resident at [facility] and would like to return to facility. Pt requires assistance with all ADLS. Requires a deedee for transfers. Tasked PRINTED CIRCUIT DESIGNER to send return referral to [facility]. Gen surg and ID following. Endocrinology consulted. Receiving IV ATB and fluids. NPO at this time. Pt to have biliary drain placed today. Fecal occult stool positive. Discharge plan will be to return to [facility] once medically ready. lean manager to follow and assist as needed. [...] this encounter [facility] 10-23-2024 Note Formatting of this n ote might be different from the original. Asked by [facility] to set transport to [facility]. The [employer] Vehicle you requested for Will M. in unit/room [place] [id number] on 10/23/2024 is scheduled to arrive at 2:30pm EST! [facility] is handling this ride and you can contact them at . Pt, nurse, unit sec, TCC, and facility informed of time. [facility] 10-23-2024 Note Formatting of this n ote might be different from the original. Asked by [facility] to set transport to [facility]. The [employer] Vehicle you requested for Will M. in unit/room [place] [address] on 10/23/2024 is scheduled to arrive at 2:30pm EST! [facility] is handling this ride and you can contact them at . Pt, nurse, unit sec, TCC, and facility informed of time. [facility] 10-23-2024 History of Presen t illness Narrative Patient discharged before I was able to round on patient. Patient admitted to [facility] with acute cholecystitis and treated medically. Patient uses U500 130 units tidac and Lantus 47 units bid at home. Insulin doses are reduced due to hospitalization. Blood sugars reviewed and remain elevated. Recommendations: Discharge patient on home doses of: u500 130 units tidac, Lantus 47 units bid Images from the original note were not included. [facility] Medical Group - Infectious Diseases Attending Progress [...] 1511 Aerobic and Anaerobic Culture with Stain [[id number]] Bile In process Component Value No component results 10/19/2024 1508 10/19/2024 2159 Culture, Aerobic Bacteria with Gram Stain [[id number]] Bile Preliminary result Component Value Culture Culture in progress P Gram Stain Result Few Polymorphonuclear leukocytes per low power field P No organisms seen P 10/19/2024 1508 10/19/2024 1511 Anaerobic culture [[id number]] Bile In process Component Value No component results 10/19/2024 1352 10/20/2024 1147 Culture, Aerobic Bacteria with Gram Stain [[id number]] Bile from Gallbladder Preliminary result Component Value Culture No growth at 18-24 hours P Gram Stain Result Few Polymorphonuclear leukocytes per low power field P No organisms seen P 10/19/2024 1352 10/19/2024 1415 Aerobic and Anaerobic Culture with Stain [[id number]] Bile from Gallbladder In process Component Value No component results 10/19/2024 1352 10/19/2024 1415 Anaerobic culture [[id number]] Bile from Gallbladder In process Component Value No component results 10/19/2024 0155 10/19/2024 0207 Occult blood, stool [[id number]] (Abnormal) Stool from Per Rectum Final result Component Value Fecal occult blood Positive Abnormal 10/18/2024 2343 10/20/2024 0735 Urine culture [[id number]] Urine, Clean Catch Final result Component Value Urine Culture Insignificant growth based on current clinical guidelines Lines: PIV site ok Radiography/Echo/Other: US guided percutaneous peritoneal or retroperitoneal fluid collection drainage [[id number]] Collected: 10/19/24 1421 Order Status: Completed Updated: [...] advanced. Subcutaneous tract was dilated. An 8 Malagasy drainage catheter advanced over the wire. The catheter was attached to a bag. A dressing was applied. Impression: Successful placement of a drainage catheter into the gallbladder using ultrasound guidance. Report Dictated on Electronically Signed By: Alfredito Baumann MD Electronically Signed Date/Time: 10/19/2024 2:22 PM EST US abdomen limited [[id number]] Collected: 10/18/242011 Order Status: Completed Updated: 10/18/242021 [...] PM EST CT abdomen pelvis w contrast [[id number]] Collected: 10/18/241904 Order Status: Completed Updated: 10/18/241913 [...] chest angiogram w and/or wo IV contrast [[id number]] Collected: 10/18/241856 Order Status: Completed Updated: 10/18/241912 [...] from the original note were not included. [facility] Progress Note Will Jacinto AGE: [...] ENDOSCOPY N/A 06/29/2023 Dr Sergio Sibley at [facility]; no specimens WISDOM TOOTH EXTRACTION FAMILY [...] loss Fluid Accumulation: Moderate to Severe Extremities Bean Snapper Strength: Not Performed Nutrition Assessment: Pt is [...] most recently 6.9% (10/19/24). Pt resides at [facility]. It seems that pt has little [...] (kg): 53 kg Total Energy Requirements (kcals/day): 3704-7762 kcals (28-32 kcals/kg) Weight Used for Protein [...] lb) (02/11/24) % Weight Change (Calculated): 15.2 [place] Body Weight (lbs) (Calculated): 130 lbs [place] Body Weight (Kg) (Calculated): 59 kg % [place] Body Weight (Calculated): 256.9 % BMI (kg/m2) (Calculated): 53.9 Weight Adjustment For: Amputation % Weight Adjustment: 10.1 - AKA Total Adjusted Percentage (Calculated): 10.1 Adjusted [place] Body Weight (lbs) (Calculated): 116.9 lbs Adjusted [place] Body Weight (kg) (Calculated): 53.14 kg Adjusted [...] Continue current diet Fernanda Chappell RD Contact: *[phone] or via Secure Chat Hospitalist Progress Note 10/22/2024 Subjective: Admit Date: 10/18/2024 PCP: Jared Guzman Room#: [id number] A BRIEF HOSPITAL COURSE: Admitted for abdominal [...] (HCC) Anxiety disorder Bipolar 1 disorder ([facility]) Blood circulation, collateral Cellulitis chronic L lower leg COVID 12/08/2021 Depression Diabetes mellitus ([facility]) Type II, on insulin Disease of blood and blood forming organ Endometrial carcinoma ([facility]) 11/25/2020 Endometrial hyperplasia Foot ulcer ([facility]) Hx of blood clots RLE prior to amputation Hyperlipidemia Hypertension Lymphedema 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, RLE Morbidly obese ([facility]) Muscle weakness Osteomyelitis (HCC) Osteomyelitis ([facility]) 2019 RLE Other lack of coordination Other specified soft tissue disorders Other symbolic dysfunctions Schizophrenia ([facility]) Sleep apnea no CPAP Venous insufficiency LABS: [...] Admit Date: 10/18/2024 PCP: Jared Guzman Room#: [id number] A BRIEF HOSPITAL COURSE: Admitted for abdominal [...] course - wok on DC with case loader operator - am labs, replace lytes prn - [...] original note were not included. Attending Attestation [facility] - General Surgery Patient Name: Will [...] from the original note were not included. [facility] - Infectious Diseases Attending Progress Note [...] 1511 Aerobic and Anaerobic Culture with Stain [[id number]] Bile In process Component Value No component results 10/19/2024 1508 10/19/2024 2159 Culture, Aerobic Bacteria with Gram Stain [[id number]] Bile Preliminary result Component Value Culture Culture in progress P Gram Stain Result Few Polymorphonuclear leukocytes per low power field P No organisms seen P 10/19/2024 1508 10/19/2024 1511 Anaerobic culture [[id number]] Bile In process Component Value No component results 10/19/2024 1352 10/20/2024 1147 Culture, Aerobic Bacteria with Gram Stain [[id number]] Bile from Gallbladder Preliminary result Component Value Culture No growth at 18-24 hours P Gram Stain Result Few Polymorphonuclear leukocytes per low power field P No organisms seen P 10/19/2024 1352 10/19/2024 1415 Aerobic and Anaerobic Culture with Stain [[id number]] Bile from Gallbladder In process Component Value No component results 10/19/2024 1352 10/19/2024 1415 Anaerobic culture [[id number]] Bile from Gallbladder In process Component Value No component results 10/19/2024 0155 10/19/2024 0207 Occult blood, stool [[id number]] (Abnormal) Stool from Per Rectum Final result Component Value Fecal occult blood Positive Abnormal 10/18/2024 2343 10/20/2024 0735 Urine culture [[id number]] Urine, Clean Catch Final result Component Value Urine Culture Insignificant growth based on current clinical guidelines Lines: PIV site ok Radiography/Echo/Other: US guided percutaneous peritoneal or retroperitoneal fluid collection drainage [[id number]] Collected: 10/19/241420 Order Status: Completed Updated: 10/19/241422 [...] advanced. Subcutaneous tract was dilated. An 8 Malagasy drainage catheter advanced over the wire. The catheter was attached to a bag. A dressing was applied. Impression: Successful placement of a drainage catheter into the gallbladder using ultrasound guidance. Report Dictated on Electronically Signed By: Alfredito Baumann MD Electronically Signed Date/Time: 10/19/2024 2:22 PM EST US abdomen limited [[id number]] Collected: 10/18/242011 Order Status: Completed Updated: 10/18/242021 [...] PM EST CT abdomen pelvis w contrast [[id number]] Collected: 10/18/241904 Order Status: Completed Updated: 10/18/241913 [...] chest angiogram w and/or wo IV contrast [[id number]] Collected: 10/18/241856 Order Status: Completed Updated: 10/18/241912 [...] absence of other toe(s), unspecified side ([facility]) Anxiety disorder Bipolar 1 disorder ([facility]) Blood circulation, collateral Cellulitis chronic L lower leg COVID 12/08/2021 Depression Diabetes mellitus ([facility]) Type II, on insulin Disease of blood and blood forming organ Endometrial carcinoma ([facility]) 11/25/2020 Endometrial hyperplasia Foot ulcer ([facility]) Hx of blood clots RLE prior to amputation Hyperlipidemia Hypertension Lymphedema 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 Room/Bed: [facility] A Admission Date: 10/18/2024 Visit Date: 10/20/2024 Reason for Endocrine Consult: IDDM on u500 Provider/Team Requesting Consult: Shawna Estrada PCP: Jared Guzman Outpt Physician'S Assistant: Yes - Dr Lee- VV 10/27/2023 [...] bid Outpt Follow Up-- Dr Lee or CASE LOADER OPERATOR as available - message sent SUBJECTIVE/HPI: CHIEF COMPLAINT: Chief Complaint Patient presents with Abdominal Pain [facility]. Pt presents with abd pain, diarrhea, chest pain. Pt presents aox4 speaking in full and complete sentences. Chest Pain Nausea Presented to ED after abdominal pain that started on Wednesday evening (10/17/2024) Found to have Acute Cholecyctitis that needs to be managed medically, patient is on u500 units at [facility] Type of DM: 2 Onset of DM: [...] found for: CHOLHDLRATIO No results found for: [id number] Lab Results Component Value Date TSH 1.037 12/31/2023 Radiology reportsas per the Radiologist Radiology: POCT glucose meter Result Date: 10/19/2024 Performed by: [facility], [address] [place] [id number] CLIA ID: [id number] POCT glucose meter Result Date: 10/19/2024 [facility]: [facility], [address] [place] [id number] CLIA ID: [id number] POCT glucose meter Result Date: 10/19/2024 Performed by: [facility], [address] [place] [id number] CLIA ID: [id number] ECG 12 lead Sinus rhythm Left ventricular hypertrophy Anterior Q waves, possibly due to LVH Electronically Signed On 10-18-2024 23:06:53 EST by Sunitha Borja POCT glucose meter Result Date: 10/18/2024 [facility]formed by: [facility], [address] [place] [id number] CLIA ID: [id number] US abdomen limited Result Date: 10/18/2024 Patient [...] 10/18/2024 Patient Name: WILL JACINTO : 1965 [facility]#: [id number] Exam Date/Time: 10/18/2024 17:20 Procedure: CT CHEST [...] ENDOSCOPY N/A 06/29/2023 Dr Sergio Sibley at [facility]; no specimens WISDOM TOOTH EXTRACTION Allergy(ies): [...] original note were not included. Attending Attestation [facility] - Surgery [facility] Physicians Surgery Patient Name: Will Jacinto [...] answered. Lilo Rizo MD General Surgery Pager #[phone] 10:55 AM 10/23/2024 GENERAL SURGERY Progress Note [...] leg COVID 12/08/2021 Depression Diabetes mellitus ([facility]) Type II, on insulin Disease of blood [...] MD Division of Hospitalist Medicine Acute care [facility] Images from the original note were not included. PHYSICAL THERAPY [facility] Name/MRN: Maria Luisa Jacinto ([id number]) Date: 10/19/2024 PT evaluation orders received and chart review completed. Pt is a senior care-care resident at [facility]. Per documentation this admission and on previous admissions, this patient is non-ambulatory, requires a deedee lift for transfers to a w/c at baseline and does not complete bed mobility. No acute PT needs identified. Rec return to ECF at discharge. Sandra De Guzman, PT documented in this encounter [facility] 10-23-2024 Note Formatting of this n ote might be different from the original. DC orders in and signed by Dr. Thomas. [facility] set up transport. [facility] in stable condition. . [facility] 10-23-2024 Note Formatting of this n ote might be different from the original. DC orders in and signed by Dr. Thomas. [facility] set up transport. [facility] in stable condition. . [facility] 10-23-2024 Note [facility] Sys tem [facility] 10-23-2024 Hospital course Narrative Discharge Summary Will [...] advanced. Subcutaneous tract was dilated. An 8 Malagasy drainage catheter advanced over the wire. The [...] Your Medications These medications were sent to [facility] [address] [place] [id number] Hours: Wednesday to Wednesday 10 am to 6 pm amoxicillin-clavulanate 875-125 MG tablet DIET: Adult diet Regular; 4 carb choices (60 gm/meal); Low Fat (less than or equal to 50 gm/day); Low Fiber ACTIVITY: No restriction. COMPLEXITY OF FOLLOW UP: [x] Moderate Complexity: follow up within 7-14 calendar days (02789) [] Severe Complexity: follow up within 7 calendar days (66010) FOLLOW UP TESTING, PENDING RESULTS OR REFERRALS AT TRANSITIONAL CARE VISIT: [x] Yes [] No PENDING STUDIES: DISPOSITION: Skilled Facility FACILITY/HOME CARE AGENCY NAME: [facility] [address] [facility] [id number] Schedule an appointment as soon as possible for a visit in 1 month(s) Drain follow up Jared Guzman [address] [facility] [address] Follow up in 1 week(s) [facility] Gastroenterology - [place] [address] [address] [facility] [address] Follow up for positive occult blood [...] this encounter [facility] 10-23-2024 Hospital Discharg e instructions Álvaro Thomas [...] Nurse: Ezio Dunlap RN Discharging Hospital Unit/Room#: B4-104/B4-314 A Discharging Unit Emergency Contact: Extended Emergency [...] ENDOSCOPY N/A 06/29/2023 Dr Sergio Sibley at [facility]; no specimens WISDOM TOOTH EXTRACTION Immunization [...] assistance Toileting Total assistance Feeding Total assistance Senior Technologist Total assistance Med Delivery yes Wound Care [...] Status Date: Discharging to Facility/ Agency Name: [facility] Address:[address] [place] [address] Dialysis Facility (if applicable) Name: Address: Dialysis Schedule: Phone: Fax: Um Nurse/Restaurant Team Member signature: ICIAN SECTION Name: Will Jacinto Prognosis: fair Condition at Discharge: stable Rehab Potential (if transferring to Rehab): fair Recommended Labs or Other Treatments After Discharge: CBC/CMP in 3 days and in 1 week Follow up with surgery as scheduled. The individual is being admitted to a nursing facility directly from an [facility] or a unit of a [facility] that is not operated by or licensed by [facility] under section 5119.14 or 5160-3-15.1 5 The individual requires the level of services provided by a nursing facility for the condition for which he or she was treated in the hospital and, Physician Certification: I certify the above information and transfer of Will Jacinto is necessary for the continuing treatment of the diagnosis listed and that he requires chcf facility for less than 30 days. Update Admission H&P: No change in H&P PHYSICIAN SIGNATURE: documented in this encounter [facility] 10-22-2024 Plan of care note Problem: Knowledge Deficit Goal: Patient/family/caregiver demonstrates understanding of disease process, treatment plan, medications, and discharge instructions Outcome: Progressing Problem: Potential for Compromised Skin Integrity Goal: Skin Integrity is Maintained or Improved Outcome: Progressing [facility] 10-22-2024 Plan of care note Problem: Knowledge Deficit Goal: Patient/family/caregiver demonstrates understanding of disease process, treatment plan, medications, and discharge instructions Outcome: Progressing Problem: Potential for Compromised Skin Integrity Goal: Skin Integrity is Maintained or Improved Outcome: Progressing [facility] 10-21-2024 Note Formatting of this n ote might be different from the original. Did update [facility] that attending would like patient to return to their facility tomorrow on po antibiotics. Will have TCC coverage for tomorrow follow for reply. Patient is long-term at the facility and does not need auth to return. [facility] 10-21-2024 Note Formatting of this n ote might be different from the original. Did update [facility] that attending would like patient to return to their facility tomorrow on po antibiotics. Will have TCC coverage for tomorrow follow for reply. Patient is long-term at the facility and does not need auth to return. [facility] 10-20-2024 Nurse Note Report called to [address] [place] [address] for transfer. [facility] 10-20-2024 Consult note Associated Order (s): IP WOUND CARE NURSE CONSULT TO [facility] Prevention CONSULT Note Will Jacinto [...] absence of other toe(s), unspecified side ([facility]) Anxiety disorder Bipolar 1 disorder ([facility]) Blood circulation, collateral Cellulitis chronic L lower leg COVID 12/08/2021 Depression Diabetes mellitus ([facility]) Type II, on insulin Disease of blood and blood forming organ Endometrial carcinoma ([facility]) 11/25/2020 Endometrial hyperplasia Foot ulcer ([facility]) Hx of blood clots RLE prior to amputation Hyperlipidemia Hypertension Lymphedema 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, RLE Morbidly obese ([facility]) Muscle weakness Osteomyelitis ([facility]) Osteomyelitis ([facility]) 2019 RLE Other lack of coordination Other specified soft tissue disorders Other symbolic dysfunctions Schizophrenia ([facility]) Sleep apnea no CPAP Venous insufficiency PAST SURGICAL HISTORY Past Surgical History: Procedure Laterality Date ABCESS DRAINAGE Right 09/09/2018 FOOT; ACH COLONOSCOPY 09/19/[address] Hyde DILATION AND CURETTAGE OF UTERUS 05/18/2019 HYSTEROSCOPY 12/23/2021 LEG AMPUTATION THROUGH KNEE Right 06/16/2019 UPPER GASTROINTESTINAL ENDOSCOPY N/A 06/29/2023 Dr Sergio Sibley at [facility]; no specimens WISDOM TOOTH EXTRACTION FAMILY [...] Geronimo DO at 10/23/2024 1:39 PM EST [facility] [employer] Phone: 10-20-2024 Consult note Associated Order (s): IP WOUND CARE NURSE CONSULT TO [facility] Prevention CONSULT Note Will M [...] absence of other toe(s), unspecified side ([facility]) Anxiety disorder Bipolar 1 disorder ([facility]) Blood circulation, collateral Cellulitis chronic L lower leg COVID 12/08/2021 Depression Diabetes mellitus ([facility]) Type II, on insulin Disease of blood and blood forming organ Endometrial carcinoma ([facility]) 11/25/2020 Endometrial hyperplasia Foot ulcer ([facility]) Hx of blood clots RLE prior to amputation Hyperlipidemia Hypertension Lymphedema 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, RLE Morbidly obese ([facility]) Muscle weakness Osteomyelitis ([facility]) Osteomyelitis ([facility]) 2019 RLE Other lack of coordination Other specified soft tissue disorders Other symbolic dysfunctions Schizophrenia ([facility]) Sleep apnea no CPAP Venous insufficiency PAST SURGICAL HISTORY Past Surgical History: Procedure Laterality Date ABCESS DRAINAGE Right 09/09/2018 FOOT; ACH COLONOSCOPY 09/19/[address] Hyde DILATION AND CURETTAGE OF UTERUS 05/18/2019 HYSTEROSCOPY 12/23/2021 LEG AMPUTATION THROUGH KNEE Right 06/16/2019 UPPER GASTROINTESTINAL ENDOSCOPY N/A 06/29/2023 Dr Sergio Sibley at [facility]; no specimens WISDOM TOOTH EXTRACTION FAMILY [...] Consult: Shawna Estrada PCP: Jared Guzman Outpt Physician'S Assistant: Yes - Dr Lee- VV 10/27/2023 [...] bid Outpt Follow Up-- Dr lee or CASE LOADER OPERATOR as available - message sent SUBJECTIVE/HPI: CHIEF COMPLAINT: Chief Complaint Patient presents with Abdominal Pain [facility] Pt presents with abd pain, diarrhea, chest [...] found for: CHOLHDLRATIO No results found for: [id number] Lab Results Component Value Date TSH 1.037 12/31/2023 Radiology reportsas per the Radiologist Radiology: POCT glucose meter Result Date: 10/19/2024 Performed by: Nati Bustos, [address] [facility] [address] CLIA ID: [id number] POCT glucose meter Result Date: 10/19/2024 Performed by: [facility], [address] [facility] [address] CLIA ID: [id number] POCT glucose meter Result Date: 10/19/2024 Performed by: [facility], [address] [facility] [address] CLIA ID: [id number] ECG 12 lead Sinus rhythm Left ventricular hypertrophy Anterior Q waves, possibly due to LVH Electronically Signed On 10-18-2024 23:06:53 EST by Sunitha Borja POCT glucose meter Result Date: 10/18/2024 Performed by: [facility], [address] [facility] [address] CLIA ID: [id number] US abdomen limited Result Date: 10/18/2024 Patient [...] absence of other toe(s), unspecified side ([facility]) Anxiety disorder Bipolar 1 disorder ([facility]) Blood circulation, collateral Cellulitis chronic L lower leg COVID 12/08/2021 Depression Diabetes mellitus ([facility]) Type II, on insulin Disease of blood and blood forming organ Endometrial carcinoma ([facility]) 11/25/2020 Endometrial hyperplasia Foot ulcer ([facility]) Hx of blood clots RLE prior to amputation Hyperlipidemia Hypertension Lymphedema 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, RLE Morbidly obese ([facility]) Muscle weakness Osteomyelitis ([facility]) Osteomyelitis ([facility]) 2019 RLE Other lack of coordination Other specified soft tissue disorders Other symbolic dysfunctions Schizophrenia ([facility]) Sleep apnea no CPAP Venous insufficiency Past Surgical History: Past Surgical History: Procedure Laterality Date ABCESS DRAINAGE Right 09/09/2018 FOOT; ACH COLONOSCOPY 09/19/[address] Hyde DILATION AND CURETTAGE OF UTERUS 05/18/2019 HYSTEROSCOPY 12/23/2021 LEG AMPUTATION THROUGH KNEE Right 06/16/2019 UPPER GASTROINTESTINAL ENDOSCOPY N/A 06/29/2023 Dr Sergio Sibley at [facility]; no specimens WISDOM TOOTH EXTRACTION Allergy(ies): [...] not included. [facility] Medical Group - Infectious Diseases Attending Consult [...] (HCC) Anxiety disorder Bipolar 1 disorder ([facility]) Blood circulation, collateral Cellulitis chronic L lower leg COVID 12/08/2021 Depression Diabetes mellitus ([facility]) Type II, on insulin Disease of blood and blood forming organ Endometrial carcinoma ([facility]) 11/25/2020 Endometrial hyperplasia Foot ulcer ([facility]) Hx of blood clots RLE prior to amputation Hyperlipidemia Hypertension Lymphedema MDRO (multiple drug resistant organisms) resistance hx CRE and MRSA in 2018, RLE Morbidly obese ([facility]) Muscle weakness Osteomyelitis ([facility]) Osteomyelitis ([facility]) 2019 RLE Other lack of coordination Other specified soft tissue disorders Other symbolic dysfunctions Schizophrenia ([facility]) Sleep apnea no CPAP Venous insufficiency Past Surgical History: Past Surgical History: Procedure Laterality Date ABCESS DRAINAGE Right 09/09/2018 FOOT; ACH COLONOSCOPY 09/19/[address] Hyde DILATION AND CURETTAGE OF UTERUS 05/18/2019 HYSTEROSCOPY 12/23/2021 LEG AMPUTATION THROUGH KNEE Right 06/16/2019 UPPER GASTROINTESTINAL ENDOSCOPY N/A 06/29/2023 Dr Sergio Sibley at [facility]; no specimens WISDOM TOOTH EXTRACTION Current [...] file Stress: No Stress Concern Present (10/19/2024) [employer] - Occupational Stress Questionnaire Feeling of Stress : Only a little Social Connections: Unknown (10/19/2024) Social Connection and Isolation Panel [NHANES] Frequency of Communication with Friends and Family: Three times a week Frequency of Social Gatherings with Friends and Family: Once a week Attends Scientology Services: 1 to 4 times per year [...] "COVID19" in the last 72 hours. 10/19/2024 559506 1415 Culture, Aerobic Bacteria with Gram Stain [[id number]] Bile from Gallbladder In process Component Value No component results 10/19/2024 40684612/20/2023 1415 Aerobic and Anaerobic Culture with Stain [[id number]] Bile from Gallbladder In process Component Value No component results 10/19/2024 11819212/20/2023 1415 Anaerobic culture [[id number]] Bile from Gallbladder In process Component Value No component results 10/19/2024 81461212/20/2023 0207 Occult blood, stool [[id number]] (Abnormal) Stool from Per Rectum Final result Component Value Fecal occult blood Positive Abnormal 10/18/2024 61188512/20/2023 0022 Urine culture [[id number]] Urine, Clean Catch In process Component Value No component results Lines: PIV site looked ok Radiography/Echo/Other: US guided percutaneous peritoneal or retroperitoneal fluid collection drainage [[id number]] Resulted: 10/19/24 1334 Order Status: Sent Updated: 10/19/24 1405 US abdomen limited [[id number]] Collected: 10/18/242011 Order Status: Completed Updated: 10/18/242021 [...] PM EST CT abdomen pelvis w contrast [[id number]] Collected: 10/18/241904 Order Status: Completed Updated: 10/18/241913 Narrative: [facility] Name: [facility]TO [facility] 1965 [id number] Exam Date/Time: 10/18/2024 17:21 Procedure: CT ABDOMEN [...] chest angiogram w and/or wo IV contrast [[id number]] Collected: 10/18/241856 Order Status: Completed Updated: 10/18/241912 Narrative: Patient Name: WILL JACINTO : 1965 [facility]#: [id number] Exam Date/Time: 10/18/2024 17:20 Procedure: CT CHEST [...] Attestation [facility] - Surgery [facility] Physicians Surgery Patient Name: Will Jacinto [...] answered. Lilo Rizo MD General Surgery Pager #[phone] 1:56 PM 10/19/2024 Department of General Surgery [...] denies fever/chills or nausea/vomiting. He resides at [facility] and notes that while oxygen [...] (HCC) Anxiety disorder Bipolar 1 disorder ([facility]) Blood circulation, collateral Cellulitis chronic L lower [...] tissue disorders Other symbolic dysfunctions Schizophrenia ([facility]) Sleep apnea no CPAP Venous insufficiency Past Surgical History: Past Surgical History: Procedure Laterality Date ABCESS DRAINAGE Right 09/09/2018 FOOT; ACH COLONOSCOPY 09/19/[address] Hyde DILATION AND CURETTAGE OF UTERUS 05/18/2019 HYSTEROSCOPY 12/23/2021 LEG AMPUTATION THROUGH KNEE Right 06/16/2019 UPPER GASTROINTESTINAL ENDOSCOPY N/A 06/29/2023 Dr Sergio Sibley at [facility]; no specimens WISDOM TOOTH EXTRACTION Current [...] file Stress: No Stress Concern Present (10/19/2024) [employer] - Occupational Stress Questionnaire Feeling of Stress : Only a little Social Connections: Unknown (10/19/2024) Social Connection and Isolation Panel [NHANES] Frequency of Communication with Friends and Family: Three times a week Frequency of Social Gatherings with Friends and Family: Once a week Attends Scientology Services: 1 to 4 times per year [...] EST Result History US abdomen limited (Order #[id number]) on 10/18/2024 - Order Result History Report [...] data. No Anne risk assessment data. No BROKERAGE PURCHASE AND SALE CLERK Request ID assessment data. No [facility] service observer ID assessment data. Breast Cancer Risk Navigation Events None Signed by Signed Time Phone Pager Joel Haddad MD 10/18/2024 20:21 Exam Information Status Exam Begun Exam Ended Final 10/18/2024 19:36 10/18/2024 20:00 External Results Report Open External Results Report Encounter View Encounter Study Details Open Study Details Order Transmittal Tracking US abdomen limited (Order #[id number]) on 10/18/24 Order Report US abdomen limited (Order #[id number]) on 10/18/24 CT abdomen pelvis w contrast Status: Final result Link to Procedure Log Procedure Log Orders Requiring a Screening Form Procedure Order Status Order ID Accession Number Form Status CT abdomen pelvis w contrast Completed [id number] Created PACS Images Show images for CT [...] History CT abdomen pelvis w contrast (Order #[id number]) on 10/18/2024 - Order Result History Report [...] data. No Anne risk assessment data. No BROKERAGE PURCHASE AND SALE CLERK Request ID assessment data. No BROKERAGE PURCHASE AND SALE CLERK service observer ID assessment data. Breast Cancer Risk [...] Tracking CT abdomen pelvis w contrast (Order #[id number]) on 10/18/[address] abdomen pelvis w contrast (Order #[id number]) on 10/18/24 CBC: Recent Labs 10/18/24 1640 [...] 7:30a-4:30p Wednesday-Wednesday After hours, please contact physician operations scheduler. Associated Order(s): Inpatient consult to Gastroenterology Images [...] ENDOSCOPY N/A 06/29/2023 Dr Sergio Sibley at [facility]; no specimens WISDOM TOOTH EXTRACTION FAMILY [...] @IMAGES@ @RISRSLT@ POCT glucose meter Performed by: [facility], [address] [place] [address] CLIA ID: [id number] @[facility]@ @[facility]@ abdomen limited Final Result 1. Cholestasis, [...] this encounter [facility] 10-20-2024 Note Formatting of this n ote might be different from the original. Care Management Progress Note Pt remains on 2E. Endo, ID, gen surg, and gastro following. Biliary drain in place, culture in process. Receiving IV ATB. Fecal occult stool positive. Discharge plan is back to [facility] when medically ready. He is a bedhold and will not need auth to return unless he goes back as skilled. lean manager to follow and assist as needed. Length of Stay (Days): 2 GMLOS: 3.5 [facility] 10-20-2024 Note Formatting of this n ote might be different from the original. Care Management Progress Note Pt remains on 2E. Endo, ID, gen surg, and gastro following. Biliary drain in place, culture in process. Receiving IV ATB. Fecal occult stool positive. Discharge plan is back to [facility] when medically ready. He is a bedhold and will not need auth to return unless he goes back as skilled. lean manager to follow and assist as needed. Length of Stay (Days): 2 GMLOS: 3.5 [facility] 10-20-2024 Note Problem: Potential f or Compromised Skin Integrity Goal: Skin Integrity is Maintained or Improved Outcome: Progressing Problem: Urinary Incontinence Goal: Perineal skin integrity is maintained or improved Outcome: Progressing [facility] 10-20-2024 Plan of care note Problem: Potential for Compromised Skin Integrity Goal: Skin Integrity is Maintained or Improved Outcome: Progressing Problem: Urinary Incontinence Goal: Perineal skin integrity is maintained or improved Outcome: Progressing [facility] 10-20-2024 Nurse Note Notified Lisa Lopes APRN and Dr. Thomas regarding patients BS. New orders placed. [facility] 10-20-2024 Note Formatting of this n ote might be different from the original. Sent updated notes to return back to [facility] via [facility] per TCC request. Await review and response regarding ability to accept. TCC notified. [facility] 10-20-2024 Note Formatting of this n ote might be different from the original. Sent updated notes to return back to [facility] via [facility] per TCC request. Await review and response regarding ability to accept. TCC notified. [facility] 10-19-2024 Telephone encounter Note Needs to be seen for follow up with any provider, will need ECF to arrange transportation so that patient can be seen in office ans no longer available to manage over the phone [facility] 10-19-2024 Miscellaneous Notes Needs to be seen for follow up with any provider, will need ECF to arrange transportation so that patient can be seen in office ans no longer available to manage over the phone documented in this encounter [facility] 10-19-2024 Note Formatting of this n ote might be different from the original. Referral placed to return back to [facility] via [facility] per TCC request. Await review and response regarding ability to accept. TCC notified. [facility] 10-19-2024 Note Formatting of this n ote might be different from the original. Referral placed to return back to [facility] via [facility] per TCC request. Await review and response regarding ability to accept. TCC notified. [facility] 10-19-2024 Note Referral placed to r marilynurn back to [facility] via [facility] per TCC request. Await review and response regarding ability to accept. TCC notified. [facility] 10-19-2024 Note Formatting of this n ote might be different from the original. Care Managment Initial Assessment Date: 10/19/2024 Patient Name: Will Jacinto : 1965 Patient Information Source of Information: Patient Cognition/Language: WFL - Within Functional Limits Permission given to speak with patient ambulatory service representative/caregiver as indicated: Confirmation of Payer with patient/family: Payer Name: [place]: Confirmation of Primary Care Physician: Primary Caregiver: Other (Comment) (Facility staff) If assistance needed, confirmed caregiver ready, willing and able to care for patient at discharge: Confirmed with: Living Arrangements Current Residence: Number of Floors Number of Entry Steps: Bed/Bath Levels: Facility: [facility] Facility Name: [facility] Plan to Return: Yes Lives [...] Plan Patient expects to be discharged to: [facility] Discharge Planning Actions: Continue to follow Patient's Choice Rights and [employer] and Collaborative Relationships Disclosed as Indicated for Post-Acute Care: Interdisciplinary Team Engagement: Social Work Referral for: Additional Information: Pt admitted to for gall bladder inflammation. Met with pt at bedside, introduced self and explained role. Pt has insurance with RX coverage, active with PCP. He is a LTC resident at [facility] and would like to return to facility. Pt requires assistance with all ADLS. Requires a deedee for transfers. Tasked PRINTED CIRCUIT DESIGNER to send return referral to [facility]. Gen surg and ID following. Endocrinology consulted. Receiving IV ATB and fluids. NPO at this time. Pt to have biliary drain placed today. Fecal occult stool positive. Discharge plan will be to return to [facility] once medically ready. lean manager to follow and assist as needed. Gill Brown RN [facility] 10-19-2024 Note Formatting of this n ote might be different from the original. Care Managment Initial Assessment Date: 10/19/2024 Patient Name: Will Jacinto : 1965 Patient Information Source of Information: Patient Cognition/Language: WFL - Within Functional Limits Permission given to speak with patient ambulatory service representative/caregiver as indicated: Confirmation of Payer with patient/family: Payer Name: [place]: Confirmation of Primary Care Physician: Primary Caregiver: Other (Comment) (Facility staff) If assistance needed, confirmed caregiver ready, willing and able to care for patient at discharge: Confirmed with: Living Arrangements Current Residence: Number of Floors Number of Entry Steps: Bed/Bath Levels: Facility: [facility] Facility Name: [facility] Plan to Return: Yes Lives [...] Plan Patient expects to be discharged to: [facility] Discharge Planning Actions: Continue to follow Patient's Choice Rights and [employer] and Collaborative Relationships Disclosed as Indicated for Post-Acute Care: Interdisciplinary Team Engagement: Social Work Referral for: Additional Information: Pt admitted to for gall bladder inflammation. Met with pt at bedside, introduced self and explained role. Pt has insurance with RX coverage, active with PCP. He is a LTC resident at [facility] and would like to return to facility. Pt requires assistance with all ADLS. Requires a deedee for transfers. Tasked PRINTED CIRCUIT DESIGNER to send return referral to [facility]. Gen surg and ID following. Endocrinology consulted. Receiving IV ATB and fluids. NPO at this time. Pt to have biliary drain placed today. Fecal occult stool positive. Discharge plan will be to return to [facility] once medically ready. lean manager to follow and assist as needed. Gill Brown RN [facility] 10-19-2024 Consult note Associated Order [...] Consult: Shawna Estrada PCP: Jared Guzman Outpt Physician'S Assistant: Yes - Dr Lee- VV 10/27/2023 [...] bid Outpt Follow Up-- Dr lee or CASE LOADER OPERATOR as available - message sent SUBJECTIVE/HPI: CHIEF COMPLAINT: Chief Complaint Patient presents with Abdominal Pain Pt presents to er from [facility]. Pt presents with abd pain, diarrhea, chest pain. Pt presents aox4 speaking in full and complete sentences. Chest Pain Nausea Presented to ED after abdominal pain that started on Wednesday evening (10/17/2024) Found to have Acute Cholecyctitis that needs to be managed medically, patient is on u500 units at [facility] Type of DM: 2 Onset of DM: [...] found for: CHOLHDLRATIO No results found for: [id number] Lab Results Component Value Date TSH 1.037 12/31/2023 Radiology reportsas per the Radiologist Radiology: POCT glucose meter Result Date: 10/19/2024 Performed by: Nati Bustos, [address] [place] [id number] CLIA ID: [id number] POCT glucose meter Result Date: 10/19/2024 Performed by: Nati Bustos, [address] [place] [id number] CLIA ID: [id number] POCT glucose meter Result Date: 10/19/2024 Performed by: Nati Bustos, [address] [facility] [address] CLIA ID: [id number] ECG 12 lead Sinus rhythm Left ventricular hypertrophy Anterior Q waves, possibly due to LVH Electronically Signed On 10-18-2024 23:06:53 EST by Sunitha Borja POCT glucose meter Result Date: 10/18/2024 Performed by: Nati Yaritza Lab, [address] [facility] [address] CLIA ID: [id number] US abdomen limited Result Date: 10/18/2024 Patient [...] (HCC) Anxiety disorder Bipolar 1 disorder ([facility]) Blood circulation, collateral Cellulitis chronic L lower leg COVID 12/08/2021 Depression Diabetes mellitus ([facility]) Type II, on insulin Disease of blood and blood forming organ Endometrial carcinoma ([facility]) 11/25/2020 Endometrial hyperplasia Foot ulcer ([facility]) Hx of blood clots RLE prior to amputation Hyperlipidemia Hypertension Lymphedema MDRO (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, RLE Morbidly obese ([facility]) Muscle weakness Osteomyelitis (HCC) Osteomyelitis (HCC) 2019 RLE Other lack of coordination Other specified soft tissue disorders Other symbolic dysfunctions Schizophrenia ([facility]) Sleep apnea no CPAP Venous insufficiency Past Surgical History: Past Surgical History: Procedure Laterality Date ABCESS DRAINAGE Right 09/09/2018 FOOT; ACH COLONOSCOPY 09/19/[address] Hyde DILATION AND CURETTAGE OF UTERUS 05/18/2019 HYSTEROSCOPY 12/23/2021 LEG AMPUTATION THROUGH KNEE Right 06/16/2019 UPPER GASTROINTESTINAL ENDOSCOPY N/A 06/29/2023 Dr Sergio Sibley at [facility]; no specimens WISDOM TOOTH EXTRACTION Allergy(ies): [...] PM EST [facility] 10-19-2024 Consult note Associated Order (s): IP CONSULT TO INFECTIOUS DISEASES Images from the original note were not included. [facility] Medical Group - Infectious Diseases Attending Consult [...] ENDOSCOPY N/A 06/29/2023 Dr Sergio Sibley at [facility]; no specimens WISDOM TOOTH EXTRACTION Current [...] file Stress: No Stress Concern Present (10/19/2024) [employer] - Occupational Stress Questionnaire Feeling of Stress : Only a little Social Connections: Unknown (10/19/2024) Social Connection and Isolation Panel [NHANES] Frequency of Communication with Friends and Family: Three times a week Frequency of Social Gatherings with Friends and Family: Once a week Attends Scientology Services: 1 to 4 times per year [...] "COVID19" in the last 72 hours. 10/19/2024 88105612/20/2023 1415 Culture, Aerobic Bacteria with Gram Stain [[id number]] Bile from Gallbladder In process Component Value No component results 10/19/2024 22227912/20/2023 1415 Aerobic and Anaerobic Culture with Stain [[id number]] Bile from Gallbladder In process Component Value No component results 10/19/2024 37363512/20/2023 1415 Anaerobic culture [[id number]] Bile from Gallbladder In process Component Value No component results 10/19/2024 80083612/20/2023 0207 Occult blood, stool [[id number]] (Abnormal) Stool from Per Rectum Final result Component Value Fecal occult blood Positive Abnormal 10/18/2024 73224412/20/2023 0022 Urine culture [[id number]] Urine, Clean Catch In process Component Value No component results Lines: PIV site looked ok Radiography/Echo/Other: US guided percutaneous peritoneal or retroperitoneal fluid collection drainage [[id number]] Resulted: 10/19/24 1334 Order Status: Sent Updated: 10/19/24 1405 US abdomen limited [[id number]] Collected: 10/18/242011 Order Status: Completed Updated: 10/18/242021 [...] PM EST CT abdomen pelvis w contrast [[id number]] Collected: 10/18/241904 Order Status: Completed Updated: 10/18/241913 [...] chest angiogram w and/or wo IV contrast [[id number]] Collected: 10/18/241856 Order Status: Completed Updated: 10/18/241912 Narrative: Patient Name: WILL JACINTO : 1965 [facility]#: [id number] Exam Date/Time: 10/18/2024 17:20 Procedure: CT CHEST [...] benefits, and consideration of use of antimicrobials. [facility] 10-19-2024 Plan of care note [...] integrity is maintained or improved Outcome: Progressing [facility] 10-19-2024 Consult note Associated Order (s): IP CONSULT TO GENERAL SURGERY Images from the original note were not included. Attending Attestation [facility] - Surgery [facility] Physicians Surgery Patient Name: Will Jacinto [...] answered. Lilo Rizo MD General Surgery Pager #[phone] 1:56 PM 10/19/2024 Department of General Surgery [...] denies fever/chills or nausea/vomiting. He resides at [facility] and notes that while oxygen [...] absence of other toe(s), unspecified side ([facility]) Anxiety disorder Bipolar 1 disorder ([facility]) Blood circulation, collateral Cellulitis chronic L lower leg COVID 12/08/2021 Depression Diabetes mellitus ([facility]) Type II, on insulin Disease of blood and blood forming organ Endometrial carcinoma ([facility]) 11/25/2020 Endometrial hyperplasia Foot ulcer ([facility]) Hx of blood clots RLE prior to amputation Hyperlipidemia Hypertension Lymphedema MDRO (multiple drug resistant organisms) resistance hx CRE and MRSA in 2018, RLE Morbidly obese ([facility]) Muscle weakness Osteomyelitis (HCC) Osteomyelitis ([facility]) 2019 RLE Other lack of coordination Other specified soft tissue disorders Other symbolic dysfunctions Schizophrenia ([facility]) Sleep apnea no CPAP Venous insufficiency Past Surgical History: Past Surgical History: Procedure Laterality Date ABCESS DRAINAGE Right 09/09/2018 FOOT; ACH COLONOSCOPY 09/19/[address] Hyde DILATION AND CURETTAGE OF UTERUS 05/18/2019 HYSTEROSCOPY 12/23/2021 LEG AMPUTATION THROUGH KNEE Right 06/16/2019 UPPER GASTROINTESTINAL ENDOSCOPY N/A 06/29/2023 Dr Sergio Sibley at [facility]; no specimens WISDOM TOOTH EXTRACTION Current [...] file Stress: No Stress Concern Present (10/19/2024) [employer] - Occupational Stress Questionnaire Feeling of Stress : Only a little Social Connections: Unknown (10/19/2024) Social Connection and Isolation Panel [NHANES] Frequency of Communication with Friends and Family: Three times a week Frequency of Social Gatherings with Friends and Family: Once a week Attends Scientology Services: 1 to 4 times per year [...] Impression Patient Name: WILL JACINTO : 1965 [facility]#: [id number] Exam Date/Time: 10/18/2024 19:36 Procedure: US ABDOMEN [...] EST Result History US abdomen limited (Order #[id number]) on 10/18/2024 - Order Result History Report [...] data. No Anne risk assessment data. No [facility] Request ID assessment data. No [facility] service observer ID assessment data. Breast Cancer Risk Navigation Events None Signed by Signed Time Phone Pager Joel Haddad MD 10/18/2024 20:21 Exam Information Status Exam Begun Exam Ended Final 10/18/2024 19:36 10/18/2024 20:00 External Results Report Open External Results Report Encounter View Encounter Study Details Open Study Details Order Transmittal Tracking US abdomen limited (Order #[id number]) on 10/18/24 Order Report US abdomen limited (Order #[id number]) on 10/18/24 CT abdomen pelvis w contrast Status: Final result Link to Procedure Log Procedure Log Orders Requiring a Screening Form Procedure Order Status Order ID Accession Number Form Status CT abdomen pelvis w contrast Completed [id number] Created PACS Images Show images for CT [...] History CT abdomen pelvis w contrast (Order #[id number]) on 10/18/2024 - Order Result History Report [...] data. No Anne risk assessment data. No BROKERAGE PURCHASE AND SALE CLERK Request ID assessment data. No BROKERAGE PURCHASE AND SALE CLERK service observer ID assessment data. Breast Cancer Risk [...] Tracking CT abdomen pelvis w contrast (Order #[id number]) on 10/18/[address] abdomen pelvis w contrast (Order #[id number]) on 10/18/24 CBC: Recent Labs 10/18/24 1640 [...] 7:30a-4:30p Wednesday-Wednesday After hours, please contact physician operations scheduler. [facility] 10-19-2024 Consult note Associated Order (s): Inpatient [...] absence of other toe(s), unspecified side ([facility]) Anxiety disorder Bipolar 1 disorder ([facility]) Blood circulation, collateral Cellulitis chronic L lower leg COVID 12/08/2021 Depression Diabetes mellitus ([facility]) Type II, on insulin Disease of blood and blood forming organ Endometrial carcinoma (HCC) 11/25/2020 Endometrial hyperplasia Foot ulcer ([facility]) Hx of blood clots RLE prior to amputation Hyperlipidemia Hypertension Lymphedema 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, RLE Morbidly obese ([facility]) Muscle weakness Osteomyelitis (HCC) Osteomyelitis (HCC) 2019 RLE Other lack of coordination Other specified soft tissue disorders Other symbolic dysfunctions Schizophrenia ([facility]) Sleep apnea no CPAP Venous insufficiency PAST SURGICAL HISTORY: Past Surgical History: Procedure Laterality Date ABCESS DRAINAGE Right 09/09/2018 FOOT; ACH COLONOSCOPY 09/19/[address] Hyde DILATION AND CURETTAGE OF UTERUS 05/18/2019 HYSTEROSCOPY 12/23/2021 LEG AMPUTATION THROUGH KNEE Right 06/16/2019 UPPER GASTROINTESTINAL ENDOSCOPY N/A 06/29/2023 Dr Sergio Sibley at [facility]; no specimens WISDOM TOOTH EXTRACTION FAMILY [...] POCT glucose meter Performed by: Nati Vigil [facility], [address] [place] [id number] CLIA ID: [id number] [facility]@ abdomen limited Final Result 1. Cholestasis, [...] to contact the dictating provider for clarification.) [employer] Work Phone: 10-18-2024 History and physical note [...] ENDOSCOPY N/A 06/29/2023 Dr Sergio Sibley at [facility]; no specimens WISDOM TOOTH EXTRACTION Social [...] - Date - 10/20/24 - Location - [facility] (Non-Skilled) - Pending the following [...] - DO NOT do CPR, intubation] [_] [DNR-RECEIVING WORKER - Comfort care only] [_] DNR form [...] Hospitalist Medicine [facility] [employer] Work Phone: 10-18-2024 Note [facility] 10-18-2024 History and physical note Attending [...] (HCC) Anxiety disorder Bipolar 1 disorder ([facility]) Blood circulation, collateral Cellulitis chronic L lower leg COVID 12/08/2021 Depression Diabetes mellitus (HCC) Type II, on insulin Disease of blood and blood forming organ Endometrial carcinoma (HCC) 11/25/2020 Endometrial hyperplasia Foot ulcer ([facility]) Hx of blood clots RLE prior to [...] - Date - 10/20/24 - Location - Intermediate Care Facility (Non-Skilled) - Pending the following [...] - DO NOT do CPR, intubation] [_] [DNR-RECEIVING WORKER - Comfort care only] [_] DNR form [...] [facility] documented in this encounter [facility] 10-18-2024 Emergency department Note EKG at bedside [facility] 10-18-2024 Emergency department Note EKG at bedside EKG called EMERGENCY DEPARTMENT ENCOUNTER Pt Name: Maria Luisa Jacinto Birthdate 1965 Date of evaluation: 10/18/2024 ED Provider: Dontrell Woodall DO CHIEF COMPLAINT Chief Complaint Patient presents with Abdominal Pain [facility]. Pt presents with abd pain, diarrhea, chest [...] absence of other toe(s), unspecified side ([facility]) Anxiety disorder Bipolar 1 disorder ([facility]) Blood circulation, collateral Cellulitis chronic L lower leg COVID 12/08/2021 Depression Diabetes mellitus ([facility]) Type II, on insulin Disease of blood and blood forming organ Endometrial carcinoma ([facility]) 11/25/2020 Endometrial hyperplasia Foot ulcer ([facility]) Hx of blood clots RLE prior to amputation Hyperlipidemia Hypertension Lymphedema 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, RLE Morbidly obese ([facility]) Muscle weakness Osteomyelitis ([facility]) Osteomyelitis ([facility]) 2019 RLE Other lack of coordination Other specified soft tissue disorders Other symbolic dysfunctions Schizophrenia ([facility]) Sleep apnea no CPAP Venous insufficiency SURGICAL HISTORY Past Surgical History: Procedure Laterality Date ABCESS DRAINAGE Right 09/09/2018 FOOT; ACH COLONOSCOPY 09/19/[address] Hyde DILATION AND CURETTAGE OF UTERUS 05/18/2019 HYSTEROSCOPY 12/23/2021 LEG AMPUTATION THROUGH KNEE Right 06/16/2019 UPPER GASTROINTESTINAL ENDOSCOPY N/A 06/29/2023 Dr Sergio Sibley at [facility]; no specimens WISDOM TOOTH EXTRACTION CURRENT [...] Culture. Procedure Abnormality Status --------- ------ Complete Urinalysis[[id number]] Please view results for these tests on [...] mL (100 mL IntraVENous Given 10/18/24 180) [place] Coma Scale Best Eye Response: Spontaneous Best [...] DO 10/18/241935 Pt presents to er from [facility]. Pt presents with abd pain, diarrhea, chest pain. Pt presents aox4 speaking in full and complete sentences. documented in this encounter [facility] 10-18-2024 Emergency department Note EKG called [facility] 10-18-2024 Emergency department Triage note Pt presents to er from [facility]. Pt presents with abd pain, diarrhea, chest pain. Pt presents aox4 speaking in full and complete sentences. [facility] 10-18-2024 Physician Emergency department Note EMERGENCY DEPARTMENT ENCOUNTER Pt Name: Maria Luisa Jacinto Birthdate 1965 Date of evaluation: 10/18/2024 ED Provider: Dontrell Woodall DO CHIEF COMPLAINT Chief Complaint Patient presents with Abdominal Pain Pt presents to er from [facility]. Pt presents with abd pain, diarrhea, chest [...] absence of other toe(s), unspecified side ([facility]) Anxiety disorder Bipolar 1 disorder ([facility]) Blood circulation, collateral Cellulitis chronic L lower leg COVID 12/08/2021 Depression Diabetes mellitus ([facility]) Type II, on insulin Disease of blood and blood forming organ Endometrial carcinoma ([facility]) 11/25/2020 Endometrial hyperplasia Foot ulcer ([facility]) Hx of blood clots RLE prior to amputation Hyperlipidemia Hypertension Lymphedema 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, RLE Morbidly obese ([facility]) Muscle weakness Osteomyelitis (HCC) Osteomyelitis ([facility]) 2019 RLE Other lack of coordination Other specified soft tissue disorders Other symbolic dysfunctions Schizophrenia ([facility]) Sleep apnea no CPAP Venous insufficiency SURGICAL HISTORY Past Surgical History: Procedure Laterality Date ABCESS DRAINAGE Right 09/09/2018 FOOT; ACH COLONOSCOPY 09/19/[address] Hyde DILATION AND CURETTAGE OF UTERUS 05/18/2019 HYSTEROSCOPY 12/23/2021 LEG AMPUTATION THROUGH KNEE Right 06/16/2019 UPPER GASTROINTESTINAL ENDOSCOPY N/A 06/29/2023 Dr Sergio Sibley at [facility]; no specimens WISDOM TOOTH EXTRACTION CURRENT [...] Culture. Procedure Abnormality Status --------- ------ Complete Urinalysis[[id number]] Please view results for these tests on [...] Emergency Medicine Provider Dontrell Woodall DO 10/18/241935 [employer] 09-20-2024 Telephone encounter Note Faxed recommendation to [facility]. Thank you! [employer] 09-20-2024 Miscellaneous Notes Faxed recommendation to [facility]. Thank you! Very high doses with variability and history severe hypoglycemia- would not change doses for now Images from the original note were not included. Patient's BGL documented in this encounter [facility] [employer] 09-19-2024 Telephone encounter Note Very high doses with variability and history severe hypoglycemia- would not change doses for now [employer] Phone: 09-19-2024 Telephone encounter Note Images from the original note were not included. Patient's BGL [facility] 09-13-2024 Telephone encounter Note Faxed info. To [facility]. [phone] [facility] 09-13-2024 Miscellaneous Notes Faxed info. To [facility]. [phone] Keep doses the same for now thank you Images from the original note were not included. Patient's BGL documented in this encounter [facility] 09-11-2024 Telephone encounter Note Keep doses the same for now thank you [employer] Phone: 09-11-2024 Miscellaneous Notes Keep doses the same for now thank you Images from the original note were not included. Patient's BGL documented in this encounter [facility] 09-11-2024 Telephone encounter Note Images from the original note were not included. Patient's BGL [facility] 08-09-2024 Miscellaneous Notes There's a more recent BGL that you also advised no changes. I faxed over recommendation to [facility]. Thank you! Please keep doses the same thank you Images from the original note were not included. Patient's BGL documented in this encounter [facility] 08-09-2024 Telephone encounter Note There's a more recent BGL that you also advised no changes. I faxed over recommendation to [facility]. Thank you! [facility] 08-09-2024 Telephone encounter Note Faxed recommendation to [facility]. Thank you! [facility] 08-09-2024 Miscellaneous Notes Faxed recommendation to [facility]. Thank you! Somewhat improved; would not make any changes at this point thank you Images from the original note were not included. Patient's BGL documented in this encounter [facility] 08-08-2024 Telephone encounter Note Somewhat improved; would not make any changes at this point thank you [employer] Phone: 08-08-2024 Miscellaneous Notes Somewhat improved; would not make any changes at this point thank you Images from the original note were not included. Patient's BGL documented in this encounter [facility] 08-08-2024 Telephone encounter Note Images from the original note were not included. Patient's BGL [facility] 08-04-2024 Telephone encounter Note Please keep doses the same thank you [employer] Phone: 08-04-2024 Miscellaneous Notes Please keep doses the same thank you Images from the original note were not included. Patient's BGL documented in this encounter [facility] 08-03-2024 Telephone encounter Note Images from the original note were not included. Patient's BGL [facility] 07-18-2024 Note Addended by: RADHA BUSBY on: 07/18/2024 02:17 PM Modules accepted: Orders [facility] 07-18-2024 Note Addended by: RADHA BUSBY on: 07/18/2024 02:17 PM Modules accepted: Orders [facility] 07-18-2024 Note Addended by: RADHA BUSBY on: 07/18/2024 02:17 PM Modules accepted: Orders [facility] 07-18-2024 Telephone encounter Note Called [facility] and spoke with nurse. I relayed the message below and she verbalized understanding. [facility] 07-18-2024 Miscellaneous Notes Addended by: RADHA BUSBY [...] this encounter [facility] 07-18-2024 Telephone encounter Note Increase lantus to 45 twice daily thank you [facility] [employer] Phone: 07-18-2024 Telephone encounter Note Patient is currently taking Humulin R U500(130 units TID) and lantus(30 units BID). [facility] 07-17-2024 Telephone encounter Note Please confirm current u500 doses thank you [facility] 07-17-2024 Telephone encounter Note Images from the original note were not included. Patient's BGL [facility] 05-02-2024 Telephone encounter Note Faxed recommendation to [facility]([phone]) Thank you! [facility] 05-02-2024 Miscellaneous Notes Faxed recommendation to [facility]([phone]) Thank you! A lot of fluctuation and patient is prone to severe hypoglycemia so would not change dose thank you BS Log for 04/25/24 - 05/01/24 scanned into media for review. Please advise. Thank you. documented in this encounter [facility] 05-02-2024 Telephone encounter Note A lot of fluctuation and patient is prone to severe hypoglycemia so would not change dose thank you [employer] Phone: 05-02-2024 Telephone encounter Note BS Log for 04/25/24 - 05/01/24 scanned into media for review. Please advise. Thank you. [facility] 02-24-2024 Telephone encounter Note Please ask to increase u500 insulin with meals to 85 units with meals thank you [employer] Phone: 02-24-2024 Miscellaneous Notes Please ask to increase u500 insulin with meals to 85 units with meals thank you Nabil returned call. Nabil Message released to patient as written. Radha Busby MA Planner Intern Signed 2:13 PM Called [facility] [...] to the patient from encounter: N/A Called [facility] to confirm current [...] this encounter [facility] 02-23-2024 Telephone encounter Note Nabil returned call. Nabil Message released to patient as written. Radha Busby MA Planner Intern Signed 2:13 PM Called [facility] [...] encounter: N/A [facility] 02-23-2024 Miscellaneous Notes Nabil returned call. Nabil Message released to patient as written. Radha Busby MA Planner Intern Signed 2:13 PM Called [facility] to confirm current DM insulin [...] to the patient from encounter: N/A Called [facility] to confirm current DM insulin [...] included. Patient's BGL documented in this encounter [facility] [employer] 02-23-2024 Telephone encounter Note Called [facility] to confirm current DM insulin regimen. Nurse was unavailable and will call back. We have on file that patient is taking lantus 30 units two times daily and humulin R U500 70 units with meals. CAC can release message to confirm the doses. Please also inform them for future blood sugar logs to also send current med. List. Thank you! [facility] 02-22-2024 Telephone encounter Note Please see if we can get a the patient's current dm meds with the next fax so we can adjust. Thank you [facility] Work Phone: 02-22-2024 Miscellaneous Notes Please see if we can get a the patient's current dm meds with the next fax so we can adjust. Thank you Images from the original note were not included. Patient's BGL documented in this encounter [facility] 02-22-2024 Telephone encounter Note Images from the original note were not included. 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), unspecified side (HCC) Anxiety disorder Bipolar 1 disorder ([facility]) Blood circulation, collateral Cellulitis chronic L lower leg COVID 12/08/2021 Depression Diabetes mellitus ([facility]) Type II, on insulin Disease of blood and blood forming organ Endometrial carcinoma ([facility]) 11/25/2020 Endometrial hyperplasia Foot ulcer ([facility]) Hx of blood clots RLE prior to amputation Hyperlipidemia Hypertension Lymphedema 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, RLE Morbidly obese ([facility]) Muscle weakness Osteomyelitis (HCC) Osteomyelitis ([facility]) 2019 RLE Other lack of coordination Other specified soft tissue disorders Other symbolic dysfunctions Schizophrenia ([facility]) Sleep apnea no CPAP Venous insufficiency Social [...] we should be able to see it-asked video production assistant to inform us if patient would [...] this encounter [facility] 02-11-2024 Instructions Urszula Herring MA - 02/11/2024 10:10 AM EDT YOUR APPOINTMENT TODAY WAS WITH [facility], COPD CLINIC, PULMONARY AND SLEEP MEDICINE OFFICE. PLEASE CALL OUR OFFICE AT [phone] IF YOU HAVE NOT RECEIVED YOUR TEST [...] to make improvements. COVID-19 VACCINATION INFORMATION: PH. [phone] [email or web address] [facility] Central Scheduling [phone] [facility] Sleep Scheduling [phone] documented in this encounter [facility] 01-28-2024 Emergency department Note Report called to Preethi Frias RN. Sonya Hill RN 01/28/2412 [facility] 01-28-2024 Emergency department Note Report called to [...] this encounter [facility] 01-27-2024 Emergency department Note Report to PASTORA Almendarez. Maylin Nolan RN 01/27/242020 [facility] 01-27-2024 Emergency department Note DM transport arranged. ETA 3-4 hours. Maylin Nolan RN 01/27/242018 [facility] 01-27-2024 Hospital Discharg e tayla Low II, [...] 200 units once daily. Follow-up with your molecular geneticist in the office within the next week. documented in this encounter [facility] 01-27-2024 Emergency department Note Patient quickly ate his sack lunch and two diet cokes. Shortly after patient complains of stomach pain. Provider notified. Maylin Nolan RN 01/27/242005 [facility] 01-27-2024 Emergency department Note Sack lunch provided. Maylin Nolan RN 01/27/241923 [facility] 01-26-2024 Emergency department Note Patient provided sack lunch per his request. Denise Terry RN 01/26/242229 [facility] 01-26-2024 Emergency department Note Patient provided sack lunch per his request. Denise Terry RN 01/26/242229 I did not see or evaluate this patient in the ED. Mark Couch PA-C 01/26/242127 EMERGENCY DEPARTMENT ENCOUNTER Pt Name: Will Jacinto Birthdate 1965 Date of evaluation: 01/26/2024 ED Provider: Art Zeng DO CHIEF COMPLAINT Chief Complaint Patient presents with Hypoglycemia Patient reports from [facility] for low blood sugar. Facility states [...] hypoglycemia. Blood sugar was 48 at his halfway, he says they gave him some pudding, [...] (HCC) Anxiety disorder Bipolar 1 disorder ([facility]) Blood circulation, collateral Cellulitis chronic L lower [...] tissue disorders Other symbolic dysfunctions Schizophrenia ([facility]) Sleep apnea no CPAP Venous insufficiency SURGICAL HISTORY Past Surgical History: Procedure Laterality Date ABCESS DRAINAGE Right 09/09/2018 FOOT; [facility] COLONOSCOPY 09/19/[address] Hyde DILATION AND CURETTAGE OF UTERUS 05/18/2019 HYSTEROSCOPY 12/23/2021 LEG AMPUTATION THROUGH KNEE Right 06/16/2019 UPPER GASTROINTESTINAL ENDOSCOPY N/A 06/29/2023 Dr Sergio Sibley at [facility]; no specimens WISDOM TOOTH EXTRACTION CURRENT [...] 102 (*) Narrative: Performed by: [facility] [place] [facility], [address] [place] [address] CLIA ID: [id number] POCT GLUCOSE METER UNSOLICITED RESULTS - Abnormal Glucose 111 (*) Narrative: Performed by: [facility] [facility], [address] [place] [address] CLIA ID: [id number] POCT GLUCOSE METER UNSOLICITED RESULTS - Abnormal Glucose 101 (*) Narrative: Performed by: [facility], [address] [place] [address] CLIA ID: [id number] All other labs were within normal range [...] Hypoglycemia PATIENT REFERRED TO: Jared Guzman [address] [facility] [address] Schedule an appointment as soon as [...] this encounter [facility] 01-26-2024 Hospital Discharg e instructions Art Zeng DO - 01/26/2024 10:15 PM EDT Call your doctor in the morning to schedule follow up. Eat regular meals and snacks. Return to the ED for recurrent symptoms or if any other problems arise. The following attachments cannot be sent through Care Everywhere.Low Blood Sugar Discharge Instructions, Adult ([place])documented in this encounter [facility] 01-26-2024 Physician Emergency department Note I did not see or evaluate this patient in the ED. Mark Couch PA-C 01/26/242127 [facility] Work Phone: 01-26-2024 Physician Emergency department Note EMERGENCY DEPARTMENT ENCOUNTER Pt Name: Will Jacinto Birthdate 1965 Date of evaluation: 01/26/2024 ED Provider: Art Zeng DO CHIEF COMPLAINT Chief Complaint Patient presents with Hypoglycemia Patient reports from [facility] for low blood sugar. Facility states [...] hypoglycemia. Blood sugar was 48 at his halfway, he says they gave him some pudding, [...] absence of other toe(s), unspecified side ([facility]) Anxiety disorder Bipolar 1 disorder ([facility]) Blood circulation, collateral Cellulitis chronic L lower leg COVID 12/08/2021 Depression Diabetes mellitus ([facility]) Type II, on insulin Disease of blood and blood forming organ Endometrial carcinoma ([facility]) 11/25/2020 Endometrial hyperplasia Foot ulcer ([facility]) Hx of blood clots RLE prior to amputation Hyperlipidemia Hypertension Lymphedema 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, RLE Morbidly obese ([facility]) Muscle weakness Osteomyelitis ([facility]) Osteomyelitis ([facility]) 2019 RLE Other lack of coordination Other specified soft tissue disorders Other symbolic dysfunctions Schizophrenia ([facility]) Sleep apnea no CPAP Venous insufficiency SURGICAL HISTORY Past Surgical History: Procedure Laterality Date ABCESS DRAINAGE Right 09/09/2018 FOOT; [facility] COLONOSCOPY 09/19/[address] Hyde DILATION AND CURETTAGE OF UTERUS 05/18/2019 HYSTEROSCOPY 12/23/2021 LEG AMPUTATION THROUGH KNEE Right 06/16/2019 UPPER GASTROINTESTINAL ENDOSCOPY N/A 06/29/2023 Dr Sergio Sibley at [facility]; no specimens WISDOM TOOTH EXTRACTION CURRENT [...] Value Glucose 102 (*) Narrative: Performed by: [facility], [address] [place] [address] CLIA ID: [id number] POCT GLUCOSE METER UNSOLICITED RESULTS - Abnormal Glucose 111 (*) Narrative: Performed by: [facility], [address] [place] [address], [facility] [address] CLIA ID: [id number] POCT GLUCOSE METER UNSOLICITED RESULTS - Abnormal Glucose 101 (*) Narrative: Performed by: [facility], [address] [place] [address], [facility] [address] CLIA ID: [id number] All other labs were within normal range [...] Hypoglycemia PATIENT REFERRED TO: Jared Guzman [address] [facility] [id number] Schedule an appointment as soon as possible [...] Medicine Provider Art Zeng DO 01/26/24 2216 [facility] 01-24-2024 Telephone encounter Note Pt again appeared on ED Nuance for CT AP 01/22/24; noting stable 8mm nodule; unchanged from 08/2023 report. Pt to keep appt for fu with Herber Ramos 02/11/24. Navigators to follow. [facility] 01-24-2024 Miscellaneous Notes Pt again appeared on [...] is unchanged since 08/08/2023. Referral: known to [facility]; Herber Ramos [facility] imaging n/a Pt is documented as never smoker Additional Risk Factors: na Planning CT low dose fu 01/06/24 will send to provider to confirm plan for fu. Pt has scheduled appt with Herber Ramos 02/11/24. documented in this encounter [facility] 01-22-2024 Emergency department Note EMERGENCY DEPARTMENT ENCOUNTER [...] (HCC) Anxiety disorder Bipolar 1 disorder ([facility]) Blood circulation, collateral Cellulitis chronic L lower leg COVID 12/08/2021 Depression Diabetes mellitus ([facility]) Type II, on insulin Disease of blood and blood forming organ Endometrial carcinoma ([facility]) 11/25/2020 Endometrial hyperplasia Foot ulcer ([facility]) Hx of blood clots RLE prior to [...] ENDOSCOPY N/A 06/29/2023 Dr Sergio Sibley at [facility]; no specimens WISDOM TOOTH EXTRACTION CURRENT [...] Culture. Procedure Abnormality Status --------- ------ Complete Urinalysis[[id number]] Abnormal Final result Please view results for [...] AM PATIENT REFERRED TO: Jared Matadomo [address] [facility] [phone] Schedule an appointment as soon as [...] this encounter [facility] 01-22-2024 Emergency department Triage note Pt presents to er from snf for abd pain. [facility] 01-22-2024 Physician Emergency department Note EMERGENCY DEPARTMENT ENCOUNTER Pt Name: Mraia Luisa Jacinto Birthdate 1965 Date of evaluation: [...] (HCC) Anxiety disorder Bipolar 1 disorder ([facility]) Blood circulation, collateral Cellulitis chronic L lower leg COVID 12/08/2021 Depression Diabetes mellitus ([facility]) Type II, on insulin Disease of blood and blood forming organ Endometrial carcinoma ([facility]) 11/25/2020 Endometrial hyperplasia Foot ulcer ([facility]) Hx of blood clots RLE prior to amputation Hyperlipidemia Hypertension Lymphedema 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, RLE Morbidly obese ([facility]) Muscle weakness Osteomyelitis (HCC) Osteomyelitis ([facility]) 2019 RLE Other lack of coordination Other specified soft tissue disorders Other symbolic dysfunctions Schizophrenia ([facility]) Sleep apnea no CPAP Venous insufficiency SURGICAL HISTORY Past Surgical History: Procedure Laterality Date ABCESS DRAINAGE Right 09/09/2018 FOOT; ACH COLONOSCOPY 09/19/[address] Hyde DILATION AND CURETTAGE OF UTERUS 05/18/2019 HYSTEROSCOPY 12/23/2021 LEG AMPUTATION THROUGH KNEE Right 06/16/2019 UPPER GASTROINTESTINAL ENDOSCOPY N/A 06/29/2023 Dr Sergio Sibley at [facility]; no specimens WISDOM TOOTH EXTRACTION CURRENT [...] in 3 months Report Dictated on Workstation: [employer] Electronically Signed By: Brandon Morgan MD Electronically [...] Culture. Procedure Abnormality Status --------- ------ Complete Urinalysis[[id number]] Abnormal Final result Please view results for [...] 75 mL (75 mL IntraVENous Given 01/22/24 5446) cefTRIAXone (Rocephin) 1,000 mg in sodium chloride 0.9 % 50 mL IVPB Mini-Bag Plus (1,000 mg IntraVENous New Bag 01/22/24 5569) REVAL: CRITICAL CARE TIME None CONSULTS: None [...] 05:54:09 AM PATIENT REFERRED TO: Jared Guzman [address] [facility] [phone] Schedule an appointment as soon as [...] DO 01/22/24632 [facility] 01-21-2024 Telephone encounter Note Called SNF and spoke to Marques who will leave a message for [facility]. Notified them the the pts care can be moved to the [place] office, and to just let the office know after her upcoming appt. [facility] 01-21-2024 Miscellaneous Notes Called SNF and spoke to Marques who will leave a message for Suri. Notified them the the pts care can be moved to the [place] office, and to just let the office know after her upcoming appt. Called SNF and spoke to Quiana who stated that the person that I need to talk to has left for the day and requested that I called tomorrow. Name of caller: Suri Contact phone number: [phone] Relationship to Patient: [facility] Provider: MD Jesus Practice: [facility] Endocrinology Chief Complaint/Reason for Call: Suri called in to see if Pt's F/U appt could be moved to the [place] location. Scheduling is into Jul. [facility] did advise Suri and she stated she will keep the scheduled appt at [facility] location, but would like to know if Pt can be scheduled at the [place] location for his next f/u appt. Please advise Best time of day caller can be reached: Any Patient advised that office/PCP has 24-48 business hours to return their call: N/A documented in this encounter [facility] 01-20-2024 Telephone encounter Note Called SNF and spoke to Quiana who stated that the person that I need to talk to has left for the day and requested that I called tomorrow. [facility] 01-20-2024 Telephone encounter Note Name of caller: Suri Contact phone number: [phone] Relationship to Patient: [facility] Provider: MD Jesus Practice: [facility] Endocrinology Chief Complaint/Reason for Call: Suri called in to see if Pt's F/U appt could be moved to the [place] location. Scheduling is into Jul. [facility] did advise Suri and she stated she will keep the scheduled appt at [facility] location, but would like to know if Pt can be scheduled at the [place] location for his next f/u appt. Please advise Best time of day caller can be reached: Any Patient advised that office/PCP has 24-48 business hours to return their call: N/A [facility] 01-20-2024 Telephone encounter Note Faxed recommendation to [facility]([phone]). [facility] 01-20-2024 Miscellaneous Notes Faxed recommendation to [facility]([phone]). Please keep doses the same thank you Images from the original note were not included. Patient's BGL documented in this encounter [facility] 01-19-2024 Telephone encounter Note Please keep doses the same thank you [facility] Work Phone: 01-19-2024 Telephone encounter Note Images from the original note were not included. Patient's BGL [facility] 01-04-2024 Telephone encounter Note Defer CT chest (imaging has been cancelled) Keep appt schedule 02/11/24 to review next steps. [facility] 01-04-[address] chest (imaging has been cancelled) Keep appt schedule 02/11/24 to review next steps. Pt appeared on ED nuance search for lung nodules after CT AP 12/31/23 revealed the following: LOWER CHEST: An 8 mm nodule is present within the right middle lobe. This is unchanged since 08/08/2023. Referral: known to [facility]; Herber Ramos [facility] imaging n/a Pt is documented as never smoker Additional Risk Factors: na Planning CT low dose fu 01/06/24 will send to provider to confirm plan for fu. Pt has scheduled appt with Herberchava Ramos 02/11/24. documented in this encounter [facility] 01-03-2024 Telephone encounter Note Pt appeared on ED nuance search for lung nodules after CT AP 12/31/23 revealed the following: LOWER CHEST: An 8 mm nodule is present within the right middle lobe. This is unchanged since 08/08/2023. Referral: known to [facility]; Herberchava Ramos [facility] imaging n/a Pt is documented as never smoker Additional Risk Factors: na Planning CT low dose fu 01/06/24 will send to provider to confirm plan for fu. Pt has scheduled appt with Herber Richard 02/11/24. [facility] 12-29-2023 Emergency department Note Hans Larkin here for transfer back to facility. Sera Noguera RN 12/29/23 1009 [facility] 12-29-2023 Emergency department Note Hans Larkin here for transfer back to facility. Sera Noguera RN 12/29/23 1009 Report from offload medic, pt assisted using using bedpan at this time. Awaiting squad DC back to [facility] Denise Sutherland RN 12/29/23 0748 DM approx clam picker 830a AFTAB Hernandez 12/29/23 0634 Pt passed PO challenge w/o difficulty. Todd Damon 12/29/23 0143 EMERGENCY DEPARTMENT ENCOUNTER Pt Name: Maria Luisa Jacinto Birthdate 1965 Date of evaluation: 12/28/2023 ED Provider: Ramsey Zavaleta DO CHIEF COMPLAINT Chief Complaint Patient presents with Nausea Vomiting Pt arrived by EMS from [facility] due to N/V for 1 month. Upon [...] this timeframe. He is a resident at [facility] where his sugars are monitored [...] absence of other toe(s), unspecified side ([facility]) Anxiety disorder Bipolar 1 disorder ([facility]) Blood circulation, collateral Cellulitis chronic L lower leg COVID 12/08/2021 Depression Diabetes mellitus ([facility]) Type II, on insulin Disease of blood and blood forming organ Endometrial carcinoma ([facility]) 11/25/2020 Endometrial hyperplasia Foot ulcer ([facility]) Hx of blood clots RLE prior to amputation Hyperlipidemia Hypertension Lymphedema 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, RLE Morbidly obese ([facility]) Muscle weakness Osteomyelitis ([facility]) Osteomyelitis ([facility]) 2019 RLE Other lack of coordination Other specified soft tissue disorders Other symbolic dysfunctions Schizophrenia ([facility]) Sleep apnea no CPAP Venous insufficiency SURGICAL HISTORY Past Surgical History: Procedure Laterality Date ABCESS DRAINAGE Right 09/09/2018 FOOT; ACH COLONOSCOPY 09/19/[address] Hyde DILATION AND CURETTAGE OF UTERUS 05/18/2019 HYSTEROSCOPY 12/23/2021 LEG AMPUTATION THROUGH KNEE Right 06/16/2019 UPPER GASTROINTESTINAL ENDOSCOPY N/A 06/29/2023 Dr Sergio Sibley at [facility]; no specimens WISDOM TOOTH EXTRACTION CURRENT [...] Culture. Procedure Abnormality Status --------- ------ Complete Urinalysis[[id number]] Please view results for these tests on [...] this encounter [facility] 12-29-2023 Emergency department Note Report from offload medic, pt assisted using using bedpan at this time. Awaiting squad DC back to [facility] Denise Sutherland RN 12/29/23 0748 [facility] 12-29-2023 Emergency department Note DM approx clam picker 830a AFTAB Hernandez 12/29/23 0634 [facility] 12-29-2023 Hospital Discharg e instructions Ramsey Zavaleta DO - 12/29/2023 3:34 AM EST Return to the ED with worsening vomiting, abdominal pain, or any other concerns. Follow-up with your PCP for reassessment. documented in this encounter [facility] 12-29-2023 Emergency department Note Pt passed PO challenge w/o difficulty. Todd Damon 12/29/23 0143 [facility] 12-28-2023 Miscellaneous Notes Emergency Department Encounter [facility] EMERGENCY DEPT Patient: Will Jacinto [...] for clarification.) Edwin Bustos MD Acute Care [facility] Edwin Bustos MD 12/29/23 0614 documented in this encounter [facility] 12-28-2023 Note Formatting of this n ote is different from the original. Emergency Department Encounter [facility] EMERGENCY DEPT Patient: Will Jacinto [...] for clarification.) Edwin Bustos MD Acute Care [facility] Edwin Bustos MD 12/29/23 0614 [employer] Phone: 12-28-2023 Note Formatting of this n ote is different from the original. Emergency Department Encounter [facility] EMERGENCY DEPT Patient: Will Jcainto : 1965 Date of Evaluation: 12/28/2023 ED [...] [employer] Edwin Bustos MD 12/29/23 0614 [employer] Phone: 12-28-2023 Physician Emergency department Note EMERGENCY DEPARTMENT ENCOUNTER Pt Name: Maria Luisa Jacinto Birthdate 1965 Date of evaluation: 12/28/2023 ED Provider: Ramsey Zavaleta DO CHIEF COMPLAINT Chief Complaint Patient presents with Nausea Vomiting Pt arrived by EMS from [place] due to N/V for 1 month. Upon [...] this timeframe. He is a resident at [facility] where his sugars are monitored [...] ENDOSCOPY N/A 06/29/2023 Dr Sergio Sibley at [facility]; no specimens WISDOM TOOTH EXTRACTION CURRENT [...] Culture. Procedure Abnormality Status --------- ------ Complete Urinalysis[[id number]] Please view results for these tests on [...] 0413 Ramsey Zavaleta DO Resident 12/29/23 0416 [facility] 12-28-2023 Telephone encounter Note Faxed recommendation to [facility]. Thank you! [facility] 12-28-2023 Miscellaneous Notes Faxed recommendation to [facility]. Thank you! Please keep doses the same thank you Images from the original note were not included. Patient's BGL documented in this encounter [facility] 12-28-2023 Telephone encounter Note Please keep doses the same thank you [facility] 12-28-2023 Telephone encounter Note Images from the original note were not included. Patient's BGL [facility] 12-23-2023 Procedure note Pt refused to finish last 2 hours of GES, only obtained intial 2 hrs of test. [facility] 12-23-2023 Procedure note Pt refused to finish last 2 hours of GES, only obtained intial 2 hrs of test. documented in this encounter [facility] 12-14-2023 Telephone encounter Note Called [facility] and was on an extended hold. I faxed over recommendation and noted for someone to give us a call to ensure they received the recommendation. Thank you! [facility] 12-14-2023 Miscellaneous Notes Called [facility] and was on an extended hold. [...] same symptoms. Since patient is back to [facility], patient continues to have some emesis and [...] to Dr Lee. Please, advise Ninfa at [facility] of any medication changes and care advise. Phone number is [phone], ask for BEE Ocasio. Ninfa states she did fax over patient glucometer's for a week. Reason for Disposition Blood glucose > 300 mg/dL (16.7 mmol/L) AND two or more times in a row Protocols used: Diabetes - High Blood Ryyfg-UDRHX-JI documented in this encounter [facility] 12-13-2023 Telephone encounter Note Please tell staff that they can give 1/2 the usual dose of u500 insulin if the patient is not eating thank you [facility] 12-13-2023 Telephone encounter Note Images from the original note were not included. Patient's BGL is below for your review. Thank you! [facility] 12-13-2023 Telephone encounter Note S: Patient spoke with CAC nurse regarding high glucometer's and insulin dose questions B: Onset of symptoms/concern about a week A: Patient seen in ER on 12/09/2023 for same symptoms. Since patient is back to [facility], patient continues to have some emesis [...] to Dr Lee. Please, advise Ninfa at [facility] of any medication changes and care advise. Phone number is [phone], ask for BEE Ocasio. Ninfa states she did fax over patient glucometer's for a week. Reason for Disposition Blood glucose > 300 mg/dL (16.7 mmol/L) AND two or more times in a row Protocols used: Diabetes - High Blood Auflj-QHWJF-CD [facility] 12-09-2023 Emergency department Note This nurse received report from Margaret Coleman RN 12/09/23 0728 -[facility] 12-09-2023 Emergency department Note This nurse received [...] this encounter [facility] 12-09-2023 Hospital Discharg e instructions Caridad Evans [...] sent through Care Everywhere.Dehydration Discharge Instructions, Adult ([place])Nausea and Vomiting, Adult ED ([place])documented in this encounter [facility] 12-09-2023 Note Sinus rhythm Abnormal R-wave progression, late transition Left ventricular hypertrophy No significant change compared to 08/17/2023 Electronically Signed On 12-09-2023 06:18:33 EST by Caridad LAZARO [employer] 12-09-2023 Note Sinus rhythm Abnormal R-wave progression, late transition Left ventricular hypertrophy No significant change compared to 08/17/2023 Electronically Signed On 12-09-2023 06:18:33 EST by Caridad LAZARO [facility] 12-09-2023 Emergency department Note ED RT Marques called for VBG. Marques states he will be down Dalila Mendes RN 12/09/23 0559 [facility] 12-09-2023 Emergency department Triage note Pt presents to ED c/o nausea and vomiting and headache. EMS states several residents have COVID at facility. Pt states she vomiting 3x today. [facility] 12-06-2023 Telephone encounter Note Images from the original note were not included. Patient's BGL [facility] 12-06-2023 Miscellaneous Notes Images from the original note were not included. Patient's BGL documented in this encounter [facility] 11-25-2023 Note Addended by: GERONIMO LEE on: 11/25/2023 12:06 PM Modules accepted: Orders [facility] 11-25-2023 Note Addended by: GERONIMO LEE on: 11/25/2023 12:06 PM Modules accepted: Orders [facility] 11-25-2023 Miscellaneous Notes Addended by: GERONIMO LEE [...] [facility] ochoa. She verified that patient is taking humulin R U500(250 units with breakfast/175 units with lunch and dinner Please check on insulin doses; will need to increase thank you Images from the original note were not included. [facility]'s BGL [facility] Note Addended by: RADHA BUSBY on: 11/25/2023 11:59 AM Modules accepted: Orders [facility] 11-25-2023 Note Addended by: RADHA BUSBY on: 11/25/2023 11:59 AM Modules accepted: Orders [facility] 11-25-2023 Telephone encounter Note Called nursing facility and spoke with nurse Ocasio. I relayed the message and she verbalized understanding. Updated RX is pending. Thank you! [facility] 11-24-2023 Telephone encounter Note Please increase doses to 200 units with each meal thank you [facility] Work Phone: 01-17-2024 Miscellaneous Notes Please increase doses to 200 units with each meal thank you Called [facility] and spoke with nurse ochoa. She verified that patient is taking humulin R U500(250 units with breakfast/175 units with lunch and dinner Please check on insulin doses; will need to increase thank you Images from the original note were not included. Patient's BGL documented in this encounter [facility] 11-24-2023 Telephone encounter Note Called [facility] and spoke with nurse ochoa. She verified that patient is taking humulin R U500(250 units with breakfast/175 units with lunch and dinner [facility] 11-23-2023 Telephone encounter Note Please check on insulin doses; will need to increase thank you [facility] 11-23-2023 Telephone encounter Note Images from the original note were not included. Patient's BGL [facility] 11-17-2023 Note HNO ID: [id number] Author: ELDA REAVES PA-C Service: ? Author Type: Physician Forcer Maker Type: Progress Notes Filed: 11/17/2023 10:00 Note Text: CHIEF COMPLAINT: Patient presents with: Nausea AND Vomiting HPI: Resident at [facility], SNF and rehab. Will Jacinto is [...] Never Substance Us (more content not included)... [facility] 11-09-2023 Telephone encounter Note BGL under media for review. [facility] 11-09-2023 Miscellaneous Notes BGL under media for review. Nabil is faxing over patient's bgl right now. Name of caller: Nabil Contact phone number: [phone] Relationship to Patient: [facility] Provider: Dr Lee Practice: Endocrinology Chief Complaint/Reason [...] this encounter [facility] 11-09-2023 Telephone encounter Note Nabil is faxing over patient's bgl right now. [facility] 11-09-2023 Telephone encounter Note Name of caller: Nabil Contact phone number: [phone] Relationship to Patient: [facility] Provider: Dr Lee Practice: Endocrinology Chief Complaint/Reason [...] business hours to return their call: Yes [facility] 10-27-2023 History of Presen t illness Narrative . ENDOCRINOLOGY [address] [place] [id number] Dept: [phone] Dept Visit type: Established patient Patient was [...] stated that they are currently in the [facility]. If the patient is a minor, [...] the skin daily (before lunch). Lactobacillus Acid-Pectin (Acidophilus/Nyack Pectin) tablet Take 1 tablet by mouth [...] leg COVID 12/08/2021 Depression Diabetes mellitus ([facility]) Type II, on insulin Disease of blood and blood forming organ Endometrial carcinoma (HCC) 11/25/2020 Endometrial hyperplasia Foot ulcer (HCC) Hx of blood clots RLE prior to amputation Hyperlipidemia Hypertension Lymphedema MDRO (multiple drug resistant organisms) resistance hx CRE and MRSA in 2018, RLE Morbidly obese ([facility]) Muscle weakness Osteomyelitis (HCC) Osteomyelitis ([facility]) 2019 RLE Other lack of coordination Other specified soft tissue disorders Other symbolic dysfunctions Schizophrenia ([facility]) Sleep apnea no CPAP Venous insufficiency Social History Tobacco Use Smoking status: Never Smokeless tobacco: Never Substance Use Topics Alcohol use: No Past Surgical History: Procedure Laterality Date ABCESS DRAINAGE Right 09/09/2018 FOOT; ACH COLONOSCOPY 09/19/[address] Hyde DILATION AND CURETTAGE OF UTERUS 05/18/2019 HYSTEROSCOPY 12/23/2021 LEG AMPUTATION THROUGH KNEE Right 06/16/2019 UPPER GASTROINTESTINAL ENDOSCOPY N/A 06/29/2023 Dr Sergio Sibley at [facility]; no specimens WISDOM TOOTH EXTRACTION Family [...] this encounter [facility] 10-16-2023 History of Presen t illness Narrative [facility] called and notified this nurse that they won't be able to pick patient up until 0200 d/t bariatric patient and requires 2 crews. Spoke with staff and [facility] and per staff will still be able to accept patient at that time. [facility] aware ok to transport patient at 0200 to [facility]. Patient updated on delay in transportation. Department of Internal Medicine Division of Endocrinology, Diabetes, & Metabolism Endocrinology Note Patient Name: Will Jacinto : 1965 AGE: 57 y.o. Room/Bed: [facility]/[address] Admission Date: 10/07/2023 Visit Date: 10/16/2023 Reason for Endocrine Consult: U-500 dosing, hypoglycemia Provider/Team Requesting Consult: [facility] PCP: Jared Guzman Outpt Physician'S Assistant: Dr. Lee ASSESSMENT: Type 2 diabetes, [...] and he [facility] [place] hypoglycemia/unresponsiveness due to poor PO intake. Type of DM: 2 Onset of DM: 1991 Home DM Medication Regimen: U-500 insulin - 285 units before breakfast/260 units before lunch/285 units before dinner , Trulicity 4.5 mg weekly DM control (last A1c/glucose data): 7.7% on current admission Resides at the [facility] Interim history: Patient was seen at bedside Good PO intake Has intermittent nausea; no vomiting or AP Drinks juice occasionally ID following - on IV Abx; has PICC No SOB or CP Plan for DC to [facility] Date/Time Value Ref Range Status 10/16/2023 [...] Units, SubCUTAneous, Daily before lunch Lactobacillus Acid-Pectin (Acidophilus/Nyack Pectin) tablet 1 tablet, Oral, 2 times [...] found for: CHOLHDLRATIO No results found for: [id number] Lab Results Component Value Date TSH 2.356 [...] (HCC) Anxiety disorder Bipolar 1 disorder ([facility]) Blood circulation, collateral Cellulitis chronic L lower leg COVID 12/08/2021 Depression Diabetes mellitus ([facility]) Type II, on insulin Disease of blood and blood forming organ Endometrial carcinoma ([facility]) 11/25/2020 Endometrial hyperplasia Foot ulcer ([facility]) Hx of blood clots RLE prior to [...] ENDOSCOPY N/A 06/29/2023 Dr Serigo Sibley at [facility]; no specimens WISDOM TOOTH EXTRACTION Allergy(ies): [...] were not included. Hospitalist Progress Note 10/16/2023 [id number]: Please page [facility] night Hospitalist for any issues. Admit Date: 10/07/2023 PCP: Jared Guzman Room#: [id number] A Brief hospital course: Patient admitted 10/07/2023 for hypoglycemia 2/2 insulin use with poor PO intake, hypothermia, ?sepsis. 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 Initially presented from [facility] with hypoglycemia and unresponsiveness, POC glucose [...] absence of other toe(s), unspecified side ([facility]) Anxiety disorder Bipolar 1 disorder ([facility]) Blood circulation, collateral Cellulitis chronic L lower leg COVID 12/08/2021 Depression Diabetes mellitus ([facility]) Type II, on insulin Disease of blood and blood forming organ Endometrial carcinoma ([facility]) 11/25/2020 Endometrial hyperplasia Foot ulcer ([facility]) Hx of blood clots RLE prior to amputation Hyperlipidemia Hypertension Lymphedema MDRO (multiple drug resistant organisms) resistance hx CRE and MRSA in 2018, RLE Morbidly obese ([facility]) Muscle weakness Osteomyelitis (HCC) Osteomyelitis ([facility]) 2019 RLE Other lack of coordination Other specified soft tissue disorders Other symbolic dysfunctions Schizophrenia ([facility]) Sleep apnea no CPAP Venous insufficiency Objective: [...] found for: "DDIMER", "PROCAL", "COVID19", "HGBA1C", "TSH", "NQVCDDAB15", "FOLATE", "VITD25", "CHOL", "TRIG", "HDL", LDLCALC Urine [...] mg, Oral, Nightly, Rachael Robertson APRN - PROSTHODONTIST/EDUCATOR, 10 mg at 10/15/232044 metoprolol tartrate (Lopressor) [...] Oral, qAM AC, Rachael Robertson APRN - PROSTHODONTIST/EDUCATOR, 40 mg at 10/16/23 0619 polyethylene glycol [...] 10 mL, 10 mL, IntraCATHeter, q12h, Funmi Askwe MD, 10 mL at 10/16/23 0405 sodium [...] or tomorrow - Location - Sk[facility] - Pending the following - monitor glucose levels through dinner, bed hold no auth req'd and OPAT already sent to facility Marcio Armando MD Division of Hospitalist Medicine Inpatient Medical Services/[facility] Data: Moderate (3x CAT1 -OR- 1x CAT2 -OR- 1x CAT3) Complexity: Acute illness or injury posing a threat to life or body function (HIGH). Risk: Prescription drug/IVF/colloid was initiated, discontinued, adjusted; or reviewed with decision to maintain current orders (MOD). Estimated MDM: Medium (60730/33905) or higher Note: the above MDM determinations [...] Jacinto : 1965 AGE: 57 y.o. Room/Bed: [facility]/[address] Admission Date: 10/07/2023 Visit Date: 10/15/2023 Reason for Endocrine Consult: U-500 dosing, hypoglycemia Provider/Team Requesting Consult: [facility] PCP: Jared Guzman Outpt Physician'S Assistant: Dr. 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 Type of DM: 2 Onset of DM: 1991 Home DM Medication Regimen: U-500 insulin - 285 units before breakfast/260 units before lunch/285 units before dinner , Trulicity 4.5 mg weekly DM control (last A1c/glucose data): 7.7% on current admission Resides at the [facility] Interim history: Patient was seen at bedside [...] SOB or CP Plan for DC to [facility] Date/Time Value Ref Range Status 10/15/2023 [...] before lunch/285 units before dinner Lactobacillus Acid-Pectin (Acidophilus/Nyack Pectin) tablet 1 tablet, Oral, 2 times [...] found for: CHOLHDLRATIO No results found for: [id number] Lab Results Component Value Date TSH 2.356 11/26/2020 Radiology reportsas per the Radiologist Radiology: CT abdomen pelvis w contrast Result Date: 10/08/2023 [facility] 1965 [id number] Exam Date/Time: 10/08/2023 09:36 Procedure: CT ABDOMEN [...] (HCC) Anxiety disorder Bipolar 1 disorder ([facility]) Blood circulation, collateral Cellulitis chronic L lower leg COVID 12/08/2021 Depression Diabetes mellitus ([facility]) Type II, on insulin Disease of blood and blood forming organ Endometrial carcinoma ([facility]) 11/25/2020 Endometrial hyperplasia Foot ulcer ([facility]) Hx of blood clots RLE prior to amputation Hyperlipidemia Hypertension Lymphedema MDRO (multiple drug resistant organisms) resistance hx CRE and MRSA in 2018, RLE Morbidly obese ([facility]) Muscle weakness Osteomyelitis ([facility]) Osteomyelitis ([facility]) 2019 RLE Other lack of coordination Other specified soft tissue disorders Other symbolic dysfunctions Schizophrenia ([facility]) Sleep apnea no CPAP Venous insufficiency Past Surgical History: Past Surgical History: Procedure Laterality Date ABCESS DRAINAGE Right 09/09/2018 FOOT; ACH COLONOSCOPY 09/19/[address] Hyde DILATION AND CURETTAGE OF UTERUS 05/18/2019 HYSTEROSCOPY 12/23/2021 LEG AMPUTATION THROUGH KNEE Right 06/16/2019 UPPER GASTROINTESTINAL ENDOSCOPY N/A 06/29/2023 Dr Sergio Sibley at [facility]; no specimens WISDOM TOOTH EXTRACTION Allergy(ies): [...] were not included. Hospitalist Progress Note 10/15/[phone]: Please page [facility] Hospitalist for any [...] bipolar type, transgender (F2M). Initially presented from [facility] with hypoglycemia and unresponsiveness, POC glucose [...] (HCC) Anxiety disorder Bipolar 1 disorder ([facility]) Blood circulation, collateral Cellulitis chronic L lower leg COVID 12/08/2021 Depression Diabetes mellitus ([facility]) Type II, on insulin Disease of blood and blood forming organ Endometrial carcinoma ([facility]) 11/25/2020 Endometrial hyperplasia Foot ulcer ([facility]) Hx of blood clots RLE prior to amputation Hyperlipidemia Hypertension Lymphedema MDRO (multiple drug resistant organisms) resistance hx CRE and MRSA in 2018, RLE Morbidly obese ([facility]) Muscle weakness Osteomyelitis (HCC) Osteomyelitis (HCC) 2019 [...] found for: "DDIMER", "PROCAL", "COVID19", "HGBA1C", "TSH", "[id number]", "FOLATE", "VITD25", "CHOL", "TRIG", "HDL", LDLCALC Urine [...] capsule 180 mg, 180 mg, Oral, Daily, JEREYM Liao CNP, 180 mg at 10/14/23 0920 [...] Oral, qAM AC, Rachael Robertson APRN - PROSTHODONTIST/EDUCATOR, 40 mg at 10/15/23 0619 polyethylene glycol [...] - 10/16 - Location - Skilled Facility, [facility] - Pending the following - final endo recs, bed hold no auth req'd and OPAT already sent to facility Marcio Armando MD Division of Hospitalist Medicine Inpatient Medical Services/[facility] Data: Moderate (3x CAT1 -OR- 1x CAT2 -OR- 1x CAT3) Complexity: Acute illness or injury posing a threat to life or body function (HIGH). Risk: Prescription drug/IVF/colloid was initiated, discontinued, adjusted; or reviewed with decision to maintain current orders (MOD). Estimated MDM: Medium (14296/19965) or higher Note: the above MDM determinations are made by me for my own use to estimate my end-of-day billing codes. However, documentation is reviewed by professional coders; following their review of documentation, and in accordance with current AMA CPT, CMS, and ACDIS guidelines, the actual billing code(s) may differ from my estimate. Images from the original note were not included. [facility] - Infectious Diseases Attending Progress Note [...] be of low complexity. Mukul Coreas DO [facility] Infectious Diseases Office Tel. 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) Weight Loss: Unable to assess (no new/acute weight to assess) Body Fat Loss: No significant body fat loss Muscle Mass Loss: No significant muscle mass loss Fluid Accumulation: Mild Extremities, Generalized Bean Snapper Strength: Not Performed Nutrition Assessment: Pt with previously noted PMH including DM w/ gastroparesis (documented as 'brittle') & polyneuropathy, HTN, HLD, s/p R AKWarren presented initially from nursing facility due to hypoglycemia and unresponsiveness; pt was noted to have poor PO intake for at least 4 days FIELD PARTY MANAGER in addition to N/V, when pt was [...] limited documentation in chart to review, per jet wiper appears pt had 2 small yogurts this [...] is likely r/t uncontrolled DM; at facility ([facility]) pt enjoys/tolerates some meals, others do 'not [...] 152 kg (335 lb) (03/08/23 Deedee scale) [place] Body Weight (lbs) (Calculated): 130 lbs [place] Body Weight (Kg) (Calculated): 59 kg Weight Adjustment For: Amputation % Weight Adjustment: 10.1 - AKA Total Adjusted Percentage (Calculated): 10.1 Adjusted [place] Body Weight (lbs) (Calculated): 116.9 lbs Adjusted [place] Body Weight (kg) (Calculated): 53.14 kg BMI [...] Ana Reyes RD Contact: Secure chat or *[phone] Department of Internal Medicine Division of Endocrinology, Diabetes, & Metabolism Endocrinology Note Patient Name: Will Jacinto : 1965 AGE: 57 y.o. [facility]: [facility] Admission Date: 10/07/2023 Visit Date: 10/14/2023 Reason for Endocrine Consult: U-500 dosing, hypoglycemia Provider/Team Requesting Consult: YUNIER PCP: Jared Guzman Outpt Physician'S Assistant: Dr. Lee ASSESSMENT: Type 2 diabetes [...] and he presented to the hospital from halfway for hypoglycemia/unresponsiveness due to poor PO intake. Type of DM: 2 Onset of DM: 1991 Home DM Medication Regimen: U-500 insulin - 285 units before breakfast/260 units before lunch/285 units before dinner , Trulicity 4.5 mg weekly DM control (last A1c/glucose data): 7.7% on current admission Resides at the [facility] Interim history: Patient was seen at bedside Poor PO intake yesterday due to nausea No vomiting or AP Nausea better today Ate BF -- 2 yogurts Not drinking Ensure, mostly diet Coke Pt was off his Pure wick - urinated on the bed pad ID following - on IV Abx Plan for DC to [facility] Glucose Date/Time Value Ref Range Status [...] before lunch/285 units before dinner Lactobacillus Acid-Pectin (Acidophilus/Nyack Pectin) tablet 1 tablet, Oral, 2 times [...] found for: CHOLHDLRATIO No results found for: [id number] Lab Results Component Value Date TSH 2.356 11/26/2020 Radiology reportsas per the Radiologist Radiology: CT abdomen pelvis w contrast Result Date: 10/08/2023 Patient Name: WILL JACINTO : 1965 [facility]#: [id number] Exam Date/Time: 10/08/2023 09:36 Procedure: CT ABDOMEN [...] (HCC) Anxiety disorder Bipolar 1 disorder ([facility]) Blood circulation, collateral Cellulitis chronic L lower leg COVID 12/08/2021 Depression Diabetes mellitus ([facility]) Type II, on insulin Disease of blood and blood forming organ Endometrial carcinoma ([facility]) 11/25/2020 Endometrial hyperplasia Foot ulcer ([facility]) Hx of blood clots RLE prior to amputation Hyperlipidemia Hypertension Lymphedema MDRO (multiple drug resistant organisms) resistance hx CRE and MRSA in 2018, RLE Morbidly obese ([facility]) Muscle weakness Osteomyelitis ([facility]) Osteomyelitis ([facility]) 2019 RLE Other lack of coordination Other specified soft tissue disorders Other symbolic dysfunctions Schizophrenia ([facility]) Sleep apnea no CPAP Venous insufficiency Past Surgical History: Past Surgical History: Procedure Laterality Date ABCESS DRAINAGE Right 09/09/2018 FOOT; ACH COLONOSCOPY 09/19/[address] Hyde DILATION AND CURETTAGE OF UTERUS 05/18/2019 HYSTEROSCOPY 12/23/2021 LEG AMPUTATION THROUGH KNEE Right 06/16/2019 UPPER GASTROINTESTINAL ENDOSCOPY N/A 06/29/2023 Dr Sergio Sibley at [facility]; no specimens WISDOM TOOTH EXTRACTION Allergy(ies): [...] were not included. Hospitalist Progress Note 10/14/[phone]: Please page [facility] night Hospitalist for any [...] bipolar type, transgender (F2M). Initially presented from [facility] with hypoglycemia and unresponsiveness, POC glucose [...] (HCC) Anxiety disorder Bipolar 1 disorder ([facility]) Blood circulation, collateral Cellulitis chronic L lower [...] found for: "DDIMER", "PROCAL", "COVID19", "HGBA1C", "TSH", "[id number]", "FOLATE", "VITD25", "CHOL", "TRIG", "HDL", LDLCALC Urine [...] mg, Oral, q24h, Rachael Robertson APRN - PROSTHODONTIST/EDUCATOR, 10 mg at 10/13/23 1745 aspirin EC tablet 81 mg, 81 mg, Oral, Daily, Rachael Robertson APRN - PROSTHODONTIST/EDUCATOR, 81 mg at 10/13/23 0809 atorvastatin (Lipitor) tablet 10 mg, 10 mg, Oral, Nightly, Rachael Robertson APRN - PROSTHODONTIST/EDUCATOR, 10 mg at 10/13/23 214 clotrimazole (Lotrimin) 1 % cream, , Topical, BID, JEREMY Liao CNP, Given at 10/13/23 214 dextrose 5 % infusion, 100 mL/hr, IntraVENous, PRN, JEREMY Liao CNP, Stopped at 10/10/23 0552 dextrose 50 % solution 12.5 g, 12.5 g, IntraVENous, PRN, Rachael Robertson APRN - PROSTHODONTIST/EDUCATOR dilTIAZem CD (Cardizem CD) 24 hr capsule 180 mg, 180 mg, Oral, Daily, Rachael Robertson APRN - KRANTHI, 180 mg at 10/13/23 0809 enoxaparin (Lovenox) syringe 30 mg, 30 mg, SubCUTAneous, 2 times per day, Rachael Robertson APRN - KRANTHI, 30 mg at 10/13/23 214 ertapenem (INVanz) 1,000 mg in sodium chloride 0.9 % 50 mL IVPB Mini-Bag Plus, 1,000 mg, IntraVENous, q24h, Mkuul Coreas DO, Stopped at 10/13/23 1508 FLUoxetine (PROzac) capsule 40 mg, 40 mg, Oral, Daily, Rachael Robertson APRN - PROSTHODONTIST/EDUCATOR, 40 mg at 10/13/23 0809 gabapentin (Neurontin) capsule 100 mg, 100 mg, Oral, BID, Rachael Robertson APRN - PROSTHODONTIST/EDUCATOR, 100 mg at 10/13/23 214 glucagon (human [...] 40 mg, Oral, qAM AC, Rachael Robertson FLEET ADMINISTRATIVE ASSISTANT - PROSTHODONTIST/EDUCATOR, 40 mg at 10/14/23 0611 polyethylene glycol (PEG) 3350 (Miralax) packet 17 g, 17 g, Oral, Daily PRN, Rachael Robertson FLEET ADMINISTRATIVE ASSISTANT - PROSTHODONTIST/EDUCATOR polyethylene glycol (PEG) 3350 (Miralax) packet 17 g, 17 g, Oral, Daily, Rachael Robertson FLEET ADMINISTRATIVE ASSISTANT - PROSTHODONTIST/EDUCATOR, 17 g at 10/13/23 0809 prochlorperazine (Compazine) [...] - 10/15 - Location - Skilled Facility, [facility] - Pending the following - bed hold no auth req'd Marcio Armando MD Division of Hospitalrust Medicine Inpatient Medical Services/[facility] Data: Moderate (3x CAT1 -OR- 1x CAT2 -OR- 1x CAT3) Complexity: Acute illness or injury posing a threat to life or body function (HIGH). Risk: Prescription drug/IVF/colloid was initiated, discontinued, adjusted; or reviewed with decision to maintain current orders (MOD). Estimated MDM: Medium (24821/37244) or higher Note: the above MDM determinations [...] SpO2 on RA, 75 HR, BG 232. 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 2118 vitals: 152/75, HR 75, QmB259% on RA Department of Internal Medicine Division of Endocrinology, Diabetes, & Metabolism Endocrinology Note Patient Name: Will Jacinto : 1965 AGE: 57 y.o. Room/Bed: [facility]/W4-429 A Admission Date: 10/07/2023 Visit Date: 10/13/2023 Reason for Endocrine Consult: U-500 dosing, hypoglycemia Provider/Team Requesting Consult: YUNIER PCP: Jared Guzman Outpt Physician'S Assistant: Dr. Lee ASSESSMENT: Type 2 diabetes [...] and he presented [facility] the hospital from [facility] for hypoglycemia/unresponsiveness due to poor PO intake. Type of DM: 2 Onset of DM: 1991 Home DM Medication Regimen: U-500 insulin - 285 units before breakfast/260 units before lunch/285 units before dinner , Trulicity 4.5 mg weekly DM control (last A1c/glucose data): 7.7% on current admission Resides at the [facility] Interim history: Patient was seen at bedside [...] before lunch/285 units before dinner Lactobacillus Acid-Pectin (Acidophilus/Nyack Pectin) tablet 1 tablet, Oral, 2 times [...] found for: CHOLHDLRATIO No results found for: [id number] Lab Results Component Value Date TSH 2.356 [...] ENDOSCOPY N/A 06/29/2023 Dr Sergio Sibley at [facility]; no specimens WISDOM TOOTH EXTRACTION Allergy(ies): [...] were not included. Hospitalist Progress Note 10/13/2023 [phone]: Please page [facility] night Hospitalist for any [...] bipolar type, transgender (F2M). Initially presented from [facility] with hypoglycemia and unresponsiveness, POC glucose [...] found for: "DDIMER", "PROCAL", "COVID19", "HGBA1C", "TSH", "[id number]", "FOLATE", "VITD25", "CHOL", "TRIG", "HDL", LDLCALC Urine [...] Oral, q4h PRN, Rachael Robertson APRN - PROSTHODONTIST/EDUCATOR, 650 mg at 10/13/23 0117 ARIPiprazole (Abilify) tablet 10 mg, 10 mg, Oral, q24h, Rachael Robertson APRN - PROSTHODONTIST/EDUCATOR, 10 mg at 10/12/23 1726 aspirin EC [...] MD Division of Hospitalist Medicine Inpatient Medical Services/[facility] Data: Moderate (3x CAT1 -OR- 1x CAT2 [...] of recurrent hypoglycemia (HIGH). Estimated MDM: High (12936/16986) Note: the above MDM determinations are made [...] Jacinto : 1965 AGE: 57 y.o. Room/Bed: [facility]/[address] Admission Date: 10/07/2023 Visit Date: 10/12/2023 Reason for Endocrine Consult: U-500 dosing, hypoglycemia Provider/Team Requesting Consult: [facility] PCP: Jared Guzman Outpt Physician'S Assistant: Dr. Lee ASSESSMENT: Type 2 diabetes [...] and he presented [facility] the hospital from [facility] for hypoglycemia/unresponsiveness due to poor PO intake. Type of DM: 2 Onset of DM: 1991 Home DM Medication Regimen: U-500 insulin - 285 units before breakfast/260 units before lunch/285 units before dinner , Trulicity 4.5 mg weekly DM control (last A1c/glucose data): 7.7% on current admission Resides at the [facility] Interim history: Patient was seen at bedside [...] before lunch/285 units before dinner Lactobacillus Acid-Pectin (Acidophilus/Nyack Pectin) tablet 1 tablet, Oral, 2 times [...] found for: CHOLHDLRATIO No results found for: [id number] Lab Results Component Value Date TSH 2.356 11/26/2020 Radiology reportsas per the Radiologist Radiology: CT abdomen pelvis w contrast Result Date: 10/08/2023 [facility] 1965 [id number] Exam Date/Time: 10/08/2023 09:36 Procedure: CT ABDOMEN [...] 10/07/2023 [facility] Name: [facility] 1965 [id number] Exam Date/Time: 10/07/2023 07:31 Procedure: XR CHEST [...] 10/07/2023 Patient Name: WILL JACINTO : 1965 [facility]#: [id number] Exam Date/Time: 10/07/2023 07:29 Procedure: CT HEAD [...] (HCC) Anxiety disorder Bipolar 1 disorder ([facility]) Blood circulation, collateral Cellulitis chronic L lower leg COVID 12/08/2021 Depression Diabetes mellitus ([facility]) Type II, on insulin Disease of blood and blood forming organ Endometrial carcinoma ([facility]) 11/25/2020 Endometrial hyperplasia Foot ulcer ([facility]) Hx of blood clots RLE prior to amputation Hyperlipidemia Hypertension Lymphedema MDRO (multiple drug resistant organisms) resistance hx CRE and MRSA in 2018, RLE Morbidly obese ([facility]) Muscle weakness Osteomyelitis ([facility]) Osteomyelitis (HCC) 2018 RLE Other lack of [...] ENDOSCOPY N/A 06/29/2023 Dr Sergio Sibley at [facility]; no specimens WISDOM TOOTH EXTRACTION Allergy(ies): [...] not included. [facility] - Infectious Diseases Attending Progress Note Subjective- Following for BSI d/t Acinetobacter lwoffii. Pt resting comfortably in bed. States that abdominal pain has improved. Tolerating regular diet. Denies F/C. PICC line has been placed. Interval Events- Pt is afebrile. WBC WNL at 7.4. Hyperglycemic today at 401. Planning to complete IV course w/ ertapenem via PICC. Plan is to return to [facility] when medically stable. Objective- Vitals- [...] be of moderate complexity. Mukul Coreas DO [facility] Infectious Diseases Office Tel. [phone] Images from the original note were not included. Hospitalist Progress Note 10/12/2023 [phone]: Please page [facility] night Hospitalist for any [...] bipolar type, transgender (F2M). Initially presented from [facility] with hypoglycemia and unresponsiveness, POC glucose [...] absence of other toe(s), unspecified side ([facility]) Anxiety disorder Bipolar 1 disorder ([facility]) Blood circulation, collateral Cellulitis chronic L lower leg COVID 12/08/2021 Depression Diabetes mellitus ([facility]) Type II, on insulin Disease of blood and blood forming organ Endometrial carcinoma ([facility]) 11/25/2020 Endometrial hyperplasia Foot ulcer ([facility]) Hx of blood clots RLE prior to amputation Hyperlipidemia Hypertension Lymphedema MDRO (multiple drug resistant organisms) resistance hx CRE and MRSA in 2018, RLE Morbidly obese ([facility]) Muscle weakness Osteomyelitis ([facility]) Osteomyelitis ([facility]) 2019 RLE Other lack of coordination Other specified soft tissue disorders Other symbolic dysfunctions Schizophrenia ([facility]) Sleep apnea no CPAP Venous insufficiency Objective: [...] found for: "DDIMER", "PROCAL", "COVID19", "HGBA1C", "TSH", "[id number]", "FOLATE", "VITD25", "CHOL", "TRIG", "HDL", LDLCALC Urine [...] sodium chloride 0.9 % 100 mL IVPB (Add-Gardiner), 3,000 mg, IntraVENous, q6h, Skylar Larkin PA-C, [...] Oral, q6h PRN, Rachael Robertson APRN - PROSTHODONTIST/EDUCATOR, 4 mg at 10/11/23 204 pantoprazole (ProtoNix) EC tablet 40 mg, 40 mg, Oral, qAM AC, Rachael Robertson FLEET ADMINISTRATIVE ASSISTANT - PROSTHODONTIST/EDUCATOR, 40 mg at 10/12/23 0550 polyethylene glycol (PEG) 3350 (Miralax) packet 17 g, 17 g, Oral, Daily PRN, Rachael Robertson FLEET ADMINISTRATIVE ASSISTANT - PROSTHODONTIST/EDUCATOR polyethylene glycol (PEG) 3350 (Miralax) packet 17 g, 17 g, Oral, Daily, Rachael Robertson FLEET ADMINISTRATIVE ASSISTANT - PROSTHODONTIST/EDUCATOR, 17 g at 10/08/23 1042 prochlorperazine (Compazine) [...] endocrine recs Marcio Armando MD Division of Hospitalrust Medicine Inpatient Medical Services/[facility] Data: Extensive (Two out of three: 3x CAT1, 1x CAT2, 1x CAT3) Complexity: Acute illness or injury posing a threat to life or body function (HIGH). Risk: Prescription drug/IVF/colloid was initiated, discontinued, adjusted; or reviewed with decision to maintain current orders (MOD). Use/consideration of a therapy requiring intensive monitoring (HIGH). Estimated MDM: High (54385/21315) Note: the above MDM determinations are made [...] loss Fluid Accumulation: No significant fluid accumulation Bean Snapper Strength: Not Performed Nutrition Assessment: Patient is a 57-year-old transgender male with history of type 2 diabetes, hypertension, hyperlipidemia, diabetic polyneuropathy, s/p right AKA and he presented [facility] the hospital from [facility] for hypoglycemia/unresponsiveness. Per notes patient has had poor p.o. intake for the last 4 days in addition to nausea and vomiting. However it appears that he was noted to be unresponsive and was found to have a blood glucose of 36 in the halfway. 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 Patient requesting to have Ensure HP 3x/day. [...] (kg): 53 kg Total Energy Requirements (kcals/day): 2667-6587 (30-35) Weight Used for Protein Requirements: Adjusted [...] 152 kg (335 lb) (03/08/23 Deedee scale) [place] Body Weight (lbs) (Calculated): 130 lbs [place] Body Weight (Kg) (Calculated): 59 kg Weight Adjustment For: Amputation % Weight Adjustment: 10.1 - AKA Total Adjusted Percentage (Calculated): 10.1 Adjusted [place] Body Weight (lbs) (Calculated): 116.9 lbs Adjusted [place] Body Weight (kg) (Calculated): 53.14 kg BMI [...] MS RD LD Contact: epic chat or *[phone] Images from the original note were not included. [facility] - Infectious Diseases Attending Progress [...] IV ampicillin/sulbactam. Plan is to return to [facility] when medically stable. Objective- Vitals- Patient [...] be of moderate complexity. Mukul Coreas DO [facility] Infectious Diseases Office Tel. [phone] Department of Internal Medicine Division of Endocrinology, Diabetes, & Metabolism Endocrinology Note Patient Name: Will Jacinto : 1965 AGE: 57 y.o. Room[facility]: [facility] A Admission Date: 10/07/2023 Visit Date: 10/11/2023 Reason for Endocrine Consult: U-500 dosing, hypoglycemia Provider/Team Requesting Consult: YUNIER PCP: Jared Guzman Outpt Physician'S Assistant: Dr. Lee ASSESSMENT: Type 2 diabetes [...] and he presented to the hospital from [facility] for hypoglycemia/unresponsiveness. Patient had received 260 units [...] before lunch/285 units before dinner Lactobacillus Acid-Pectin (Acidophilus/Nyack Pectin) tablet 1 tablet, Oral, 2 times [...] found for: CHOLHDLRATIO No results found for: [id number] Lab Results Component Value Date TSH 2.356 [...] 10/07/2023 [facility] Name: [facility] 1965 [id number] Exam Date/Time: 10/07/2023 07:29 Procedure: CT HEAD [...] MRSA in 2018, RLE Morbidly obese ([facility]) Muscle weakness Osteomyelitis (HCC) Osteomyelitis (HCC) 2019 RLE Other lack of coordination Other specified soft tissue disorders Other symbolic dysfunctions Schizophrenia ([facility]) Sleep apnea no CPAP Venous insufficiency Past Surgical History: Past Surgical History: Procedure Laterality Date ABCESS DRAINAGE Right 09/09/2018 FOOT; ACH COLONOSCOPY 09/19/[address] Hyde DILATION AND CURETTAGE OF UTERUS 05/18/2019 HYSTEROSCOPY 12/23/2021 LEG AMPUTATION THROUGH KNEE Right 06/16/2019 UPPER GASTROINTESTINAL ENDOSCOPY N/A 06/29/2023 Dr Sergio Sibley at [facility]; no specimens WISDOM TOOTH EXTRACTION Allergy(ies): [...] were not included. Hospitalist Progress Note 10/11/2023 [phone]: Please page [facility] night Hospitalist for any [...] bipolar type, transgender (F2M). Initially presented from [facility] with hypoglycemia and unresponsiveness, POC glucose [...] sodium chloride 0.9 % 100 mL IVPB (Add-Gardiner), 3,000 mg, IntraVENous, q6h, Skylar Larkin PA-C, [...] Oral, q6h PRN, Rachael Robertson APRN - PROSTHODONTIST/EDUCATOR, 4 mg at 10/10/23 204 pantoprazole (ProtoNix) EC tablet 40 mg, 40 mg, Oral, qAM AC, Rachael Robertson APRN - PROSTHODONTIST/EDUCATOR, 40 mg at 10/11/23 0614 polyethylene glycol (PEG) 3350 (Miralax) packet 17 g, 17 g, Oral, Daily PRN, Rachael Robertson APRN - KRANTHI polyethylene glycol (PEG) 3350 (Miralax) packet 17 g, 17 g, Oral, Daily, Rachael Robertson APRN - PROSTHODONTIST/EDUCATOR, 17 g at 10/08/23 1042 prochlorperazine (Compazine) [...] MD Division of Hospitalist Medicine Inpatient Medical Services/[facility] Data: Moderate (3x CAT1 -OR- 1x CAT2 -OR- 1x CAT3) Complexity: Acute illness or injury posing a threat to life or body function (HIGH). Risk: Use/consideration of therapy requiring intensive monitoring: parenteral cardioactive electrolyte repletion, ex: calcium gluconate, magnesium, potassium (rapid hypotension, arrhythmias or arrest); telemetry, BMP (HIGH). Estimated MDM: High (81499/73126) Note: the above MDM determinations are made by me for my own use to estimate my end-of-day billing codes. However, documentation is reviewed by professional coders; following their review of documentation, and in accordance with current AMA CPT, CMS, and ACDIS guidelines, the actual billing code(s) may differ from my estimate. [facility] Respiratory Care Department Progress Note Comment [...] not included. [facility] - Infectious Diseases Advanced Practice [...] Tray (Disposables); 5 carb choices (75 gm/meal) @[id number]@ 24HR INTAKE/OUTPUT: Intake/Output Summary (Last 24 hours) [...] 10/10/2023 Division of Hospitalist Medicine Inpatient Medical Services/[facility] PAGER: [phone] Department of Internal Medicine Division of Endocrinology, Diabetes, & Metabolism Endocrinology Note Patient Name: Will Jacinto : 1965 AGE: 57 y.o. Room[facility]Bed: [facility] Admission Date: 10/07/2023 Visit Date: 10/10/2023 Reason for Endocrine Consult: U-500 dosing, hypoglycemia Provider/Team Requesting Consult: IMS PCP: Jared Guzman Outpt Physician'S Assistant: Dr. Lee ASSESSMENT: Type 2 diabetes [...] and he presented to the hospital from halfway for hypoglycemia/unresponsiveness. Patient had received 260 units [...] before lunch/285 units before dinner Lactobacillus Acid-Pectin (Acidophilus/Nyack Pectin) tablet 1 tablet, Oral, 2 times [...] found for: CHOLHDLRATIO No results found for: [id number] Lab Results Component Value Date TSH 2.356 [...] tissue disorders Other symbolic dysfunctions Schizophrenia ([facility]) Sleep apnea no CPAP Venous insufficiency Past Surgical History: Past Surgical History: Procedure Laterality Date ABCESS DRAINAGE Right 09/09/2018 FOOT; ACH COLONOSCOPY 09/19/[address] Hyde DILATION AND CURETTAGE OF UTERUS 05/18/2019 HYSTEROSCOPY 12/23/2021 LEG AMPUTATION THROUGH KNEE Right 06/16/2019 UPPER GASTROINTESTINAL ENDOSCOPY N/A 06/29/2023 Dr Sergio Sibley at [facility]; no specimens WISDOM TOOTH EXTRACTION Allergy(ies): [...] state/prognosis on the date of this note. [facility] Respiratory Care Department Progress Note Comment [...] Tray (Disposables); 5 carb choices (75 gm/meal) @[id number]@ 24HR INTAKE/OUTPUT: Intake/Output Summary (Last 24 hours) [...] (HCC) Anxiety disorder Bipolar 1 disorder ([facility]) Blood circulation, collateral Cellulitis chronic L lower leg COVID 12/08/2021 Depression Diabetes mellitus ([facility]) Type II, on insulin Disease of blood and blood forming organ Endometrial carcinoma ([facility]) 11/25/2020 Endometrial hyperplasia Foot ulcer ([facility]) Hx of blood clots RLE prior to amputation Hyperlipidemia Hypertension Lymphedema MDRO (multiple drug resistant organisms) resistance hx CRE and MRSA in 2018, RLE Morbidly obese ([facility]) Muscle weakness Osteomyelitis (HCC) Osteomyelitis (HCC) 2019 RLE Other lack of coordination Other specified soft tissue disorders Other symbolic dysfunctions Schizophrenia ([facility]) Sleep apnea no CPAP Venous insufficiency LABS: [...] : Mayda Olmstead MD 10/09/2023 Division of Hospitalrust Medicine Inpatient Medical Services/[facility] PAGER: [phone] Vancomycin therapy has been discontinued by Skylar Larkin PA-C on 10/09/23. Thank you for the consult. Pharmacy signing off for vancomycin dosing. Thais Esqueda RPh, PharmD Date: 10/09/23 Time: 11:39 AM Department of Internal Medicine Division of Endocrinology, Diabetes, & Metabolism Endocrinology Note Patient Name: Will Jacinto : 1965 AGE: 57 y.o. [facility] Admission Date: 10/07/2023 Visit Date: 10/09/2023 Reason for Endocrine Consult: U-500 dosing, hypoglycemia Provider/Team Requesting Consult: [facility] PCP: Jared Guzman Outpt Physician'S Assistant: Dr. Lee ASSESSMENT: Type 2 diabetes [...] and he presented to the hospital from halfway for hypoglycemia/unresponsiveness. Patient had received 260 units [...] before lunch/285 units before dinner Lactobacillus Acid-Pectin (Acidophilus/Nyack Pectin) tablet 1 tablet, Oral, 2 times [...] found for: CHOLHDLRATIO No results found for: [id number] Lab Results Component Value Date TSH 2.356 [...] ENDOSCOPY N/A 06/29/2023 Dr Sergio Sibley at [facility]; no specimens WISDOM TOOTH EXTRACTION Allergy(ies): [...] Vancomycin Dosing Service Progress Note Date: 10/09/23 [facility] Patient Name: Will Jacinto Allergies: [...] Entered doses and random Vancomycin level into [employer] Program. Current dosing regimen is Vancomycin 1500 milligrams Q 12 hours has predicted AUC of 526 mg/L*hr. Continue current dosing regimen. Will obtain random Vancomycin level with morning labs on or before 10/16/23. Will continue to follow renal function closely. Please page/call with questions. Date: 10/09/23 Time: 7:20 AM Name: Thais Esqueda RPh, PharmD Phone: [phone] Images from the original note were not included. Hospitalist Progress Note Subjective: Admit Date: 10/07/2023 PCP: Jared Guzman Room#: W4-429/W4-429 A Interval History: PT reports nausea, vomiting improved, no diarrhea, abd pain improved since admission, LLE erythema has been present for many years, no pain in his LLE. no other complaints. Adult diet Full liquid; 5 carb choices (75 gm/meal) @[id number]@ 24HR INTAKE/OUTPUT: Intake/Output Summary (Last 24 hours) [...] tissue disorders Other symbolic dysfunctions Schizophrenia ([facility]) Sleep apnea no CPAP Venous insufficiency LABS: [...] 10/08/2023 Division of Hospitalist Medicine Inpatient Medical Services/[facility] PAGER: [phone] Pharmacy Managed Vancomycin Dosing Service Consult Note [...] AM Ezio Orr PharmD Available via Secure Chat/Infinia documented in this encounter [facility] 10-16-2023 Nurse Note Report called to [facility]. Nursing aware of transport time scheduled [...] this encounter [facility] 10-16-2023 Hospital course Narrative Images from the [...] bacteria Sepsis without acute organ dysfunction ([facility]) Diabetic gastroparesis associated with type 2 diabetes mellitus ([facility]) ([facility]) Type 2 diabetes mellitus with hyperglycemia, with long-term current use of insulin ([facility]) Class 3 severe obesity due to excess calories with serious comorbidity and body mass index (BMI) of 60.0 to 69.9 in adult ([facility]) HOSPITAL COURSE: Patient admitted 10/07/2023 for hypoglycemia 2/2 insulin use with poor PO intake, hypothermia, ?sepsis. 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 Initially presented from [facility] with hypoglycemia and unresponsiveness, POC glucose [...] 325 MG tablet Commonly known as: Tylenol Acidophilus/Nyack Pectin tablet ARIPiprazole 10 MG tablet Commonly [...] DISPOSITION: Skilled Facility FACILITY/HOME CARE AGENCY NAME: [facility] DISCHARGE TIME: 40 minutes SIGNED: Marcio Armando MD 10/16/2023, 5:31 PM See today's progress note for physical exam. documented in this encounter [facility] 10-16-2023 Miscellaneous Notes Discharge med list transmitted to [facility] via Careport per TCC request. Discharge order is in place, but contingent upon what pt's blood sugar will be at dinner. Tasked PRINTED CIRCUIT DESIGNER to send discharge paperwork to [facility]. Spoke with BEE Herron at the facility to inform her of probable discharge at 6:30. TCC made EMISSIONS TESTING AND REPAIR TECHNICIAN aware the DC may be cancelled depending on his blood sugars tonight with dinner. EMISSIONS TESTING AND REPAIR TECHNICIAN verbalized understanding. Pt also made aware of probable dc back to facility tonight. TCC to follow and assist as needed. MAR and updated notes placed to [facility] via Careport per TCC request. Await review and response regarding ability to accept. TCC notified. TCC informed that pt can go back to [facility] as long as blood sugar is acceptable after dinner. Was asked to arrange transportation, under the assumption that pt will be discharged. Transportation set for 6:30 with [employer]. Transportation form on chart. Pt is LTC LOC and does not need 7000 or auth. Tasked PRINTED CIRCUIT DESIGNER to send MAR to facility. Once the [...] Glucose 528. Endocrine continues to follow. DCP: [facility] when clinically stable. TCC to follow. [...] 8 GMLOS: 5.1 Endocrine note placed to [facility] via [facility] per TCC request. Images from the original note were not included. Care Management Progress Note Pt remains on 4W. Positive blood cultures. PICC. Invanz Q24h until 10/21. Order in Media. Endocrine following, adjusting insulin improved to 250 this morning. DCP: [facility] when clinically stable. TCC to [...] with further issues IV ABX/COPAT placed to [facility] via Careport per TCC request. Images from the original note were not included. Care Management Progress Note Pt remains on 4W. Positive blood cultures. PICC. Invanz Q24h until 10/21. Order in Media. Na 129. Endocrine following, adjusting insulin. DCP: [facility]. TCC to follow. Discharge Milestones and [...] Endo, ID following. DC plan: return to [facility] when clinically stable. Bed hold, no [...] Infectious Disease following. Plan is return to [facility] when medically stable. Bed hold No [...] 4.1 Return referral placed to [facility] via Careport per TCC request. Await review and response regarding ability to accept. TCC notified. Care Managment Initial Assessment Date: 10/08/2023 Patient Name: Will Jacinto : 1965 Patient Information Source of Information: Patient Cognition/Language: Impaired Permission given to speak with patient ambulatory service representative/caregiver as indicated: Confirmation of Payer with patient/family: Payer Name: [facility] : No Confirmation of Primary Care Physician: Primary Caregiver: If assistance needed, confirmed caregiver ready, willing and able to care for patient at discharge: Yes Confirmed with: Living Arrangements Current Residence: Number of Floors Number of Entry Steps: Bed/Bath Levels: Facility: [facility] Facility Name: [facility] Plan to Return: Yes Lives with: [...] Plan Patient expects to be discharged to: [facility]. Discharge Planning Actions: Patient's Choice Rights and [employer] and Collaborative Relationships Disclosed as Indicated for Post-Acute Care: Interdisciplinary Team Engagement: Social Work Referral for: Additional Information: IA per patient. Lives at [facility]. Plan is return at discharge. Referral in [facility]. Demetria Robertson RN Problem: Safety - [...] this encounter [facility] 10-13-2023 Hospital Discharg e instructions Gricelda Harding [...] ENDOSCOPY N/A 06/29/2023 Dr Sergio Sibley at [facility]; no specimens WISDOM TOOTH EXTRACTION Immunization History: Immunization History Administered Date(s) Administered Covid-19, Pfizer [facility], Do Not Dilute, (Age 12 Y+), Im, L 02/26/2022 Influenza, injectable, quadrivalent, preservative free 01/14/2019, 08/12/2021 [employer] SARS-CoV-2 Vaccination 11/13/2020, 12/04/2020, 08/28/2021 Active Problems: Medical Problems Problem List * (Principal) Hypoglycemia Hypertension Chest pain Chest pain, unspecified type Upper abdominal pain Abdominal pain Endometrial carcinoma (HCC) Endometrial hyperplasia Diabetic hyperosmolar non-ketotic state (CMS/HCC) ([facility]) Thickened endometrium Ileus (CMS/HCC) (HCC) Complex endometrial hyperplasia with atypia Diabetic gastroparesis associated with type 2 diabetes mellitus ([facility]/HCC) ([facility]) Esophagitis Nausea and vomiting Hyperlipidemia Cellulitis and abscess of lower extremity Chronic acquired lymphedema Cellulitis Hyperandrogenism Uncontrolled type 2 diabetes mellitus with complication Chronic osteomyelitis ([facility]) ([facility]) 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 ([facility]) Class 3 severe obesity due to excess calories with serious comorbidity and body mass index (BMI) of 50.0 to 59.9 in adult ([facility]) Type 2 diabetes mellitus with hyperglycemia, with long-term current use of insulin ([facility]) Hyperglycemia Post-menopausal bleeding Morbid obesity ([facility]) Left leg cellulitis Diabetic foot infection S/P AKA (above knee amputation) unilateral, right ([facility]) Class 3 severe obesity due to excess calories with serious comorbidity and body mass index (BMI) of 60.0 to 69.9 in adult ([facility]) Isolation/Infection: Contact MRSA, MDRO Nurse Assessment: Last [...] assistance Toileting Total assistance Feeding Minimal assistance Senior Technologist Minimal assistance Med Delivery yes Wound Care [...] Score: @[email or web address]@ Discharging to Facility/ Agency Name: [facility] Address: [address] [place] [address] Dialysis Facility (if applicable) Name: Address: Dialysis Schedule: Phone: Fax: Um Nurse/Restaurant Team Member signature: ICIAN SECTION Prognosis: good Condition at [...] the diagnosis listed and that he requires chcf facility for greater than 30 days. Update Admission H&P: No change in H&P PHYSICIAN SIGNATURE: documented in this encounter [facility] 10-12-2023 Procedure note Associated Ord er(s): PICC [...] lumen Catheter size: 5 Fr Lot #: [id number] Trimmed at (cm): 41 Inserted at (cm): 41 Ultrasound guidance: Yes Post-procedure: Post-procedure: Antimicrobial dressing applied and securement device Description/Findings: Flushes easily and blood returned Estimated blood loss: < 5 mL Specify complication(s): No apparent complications Follow-up chest x-ray: Ordered General Comments: Infiltrated PIV site right AC, tender red IV right wrist documented in this encounter [facility] 10-09-2023 Consult note Associated Order (s): IP CONSULT TO INFECTIOUS DISEASES Images from the original note were not included. [facility] Medical [facility] - Infectious Diseases Advanced Practice Provider Consult [...] was found unresponsive and diaphoretic in the medical assembly; POC glucose 36. He was given 2 [...] leg COVID 12/08/2021 Depression Diabetes mellitus ([facility]) Type II, on insulin Disease of blood [...] ENDOSCOPY N/A 06/29/2023 Dr Sergio Sibley at [facility]; no specimens WISDOM TOOTH EXTRACTION Current [...] mg Oral BID Rachael Robertson APRN - PROSTHODONTIST/EDUCATOR 25 mg at 10/09/23 0855 ondansetron (Zofran) tablet 4 mg 4 mg Oral q6h PRN Rachael Robertson APRN - KRANTHI 4 mg at 10/08/23 2044 pantoprazole (ProtoNix) EC tablet 40 mg 40 mg Oral qAM AC Rachael Robertson APRN - PROSTHODONTIST/EDUCATOR 40 mg at 10/09/23 0654 piperacillin-tazobactam (Zosyn) IVPB 3,375 mg 3,375 mg IntraVENous q8h Rachael Robertson APRN - KRANTHI Stopped at 10/09/23 0645 polyethylene glycol (PEG) 3350 (Miralax) packet 17 g 17 g Oral Daily PRN Rachaeljenny Robertson, FLEET ADMINISTRATIVE ASSISTANT - PROSTHODONTIST/EDUCATOR polyethylene glycol (PEG) 3350 (Miralax) packet 17 g 17 g Oral Daily Rachael Robertson, FLEET ADMINISTRATIVE ASSISTANT - PROSTHODONTIST/EDUCATOR 17 g at 10/08/23 1042 vancomycin (Vancocin) 1500 mg in NS 250 mL IVPB (compounded premix) 1,500 mg IntraVENous q12h Rachael Robertson, FLEET ADMINISTRATIVE ASSISTANT - PROSTHODONTIST/EDUCATOR 125 mL/hr at 10/09/23 0656 1,500 mg [...] Jacinto : 1965 AGE: 57 y.o. [facility] Admission Date: 10/07/2023 Visit Date: 10/08/2023 Reason for Endocrine Consult: U-500 dosing, hypoglycemia Provider/Team Requesting Consult: [facility] PCP: Jared Guzman Outpt Physician'S Assistant: Dr. Lee ASSESSMENT: Type 2 diabetes [...] and he presented to the hospital from halfway for hypoglycemia/unresponsiveness. Per notes patient has had [...] a blood glucose of 36 in the halfway. Patient had received 260 units of U-500 [...] before lunch/285 units before dinner Lactobacillus Acid-Pectin (Acidophilus/Nyack Pectin) tablet 1 tablet, Oral, 2 times [...] found for: CHOLHDLRATIO No results found for: [id number] Lab Results Component Value Date TSH 2.356 [...] 10/07/2023 Patient Name: WILL JACINTO : 1965 [facility]#: [id number] Exam Date/Time: 10/07/2023 07:31 Procedure: XR CHEST [...] 10/07/2023 [facility]: [facility] 1965 [id number] Exam Date/Time: 10/07/2023 07:29 Procedure: CT HEAD [...] ENDOSCOPY N/A 06/29/2023 Dr Sergio Sibley at [facility]; no specimens WISDOM TOOTH EXTRACTION Allergy(ies): [...] Date: 10/07/23 Consulted By: Rachael Robertson CNP Room:[facility] A Patient Name: Will Jacinto Allergies: [...] this encounter [facility] 10-07-2023 History and physical note Images from [...] who presents to the emergency department from [facility] for hypoglycemia/unresponsiveness. Staff nurse at facility [...] intake for dinner at 5p (?some soup). Ywalj-sv-wnaw glucose last night was 116 and he was given 3 glasses of apple juice prior to bed. Found unresponsive and diaphoretic at 0445 this a.m. Crexk-wc-rkdp glucose 36 at that time. Given 2 doses of glucagon which improved his dhumy-mo-fgvs glucose to 61. 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, RLE Morbidly obese ([facility]) Muscle weakness Osteomyelitis (HCC) Osteomyelitis ([facility]) 2019 RLE Other lack of coordination Other specified soft tissue disorders Other symbolic dysfunctions Schizophrenia ([facility]) Sleep apnea no CPAP Venous insufficiency Past Surgical History: Past Surgical History: Procedure Laterality Date ABCESS DRAINAGE Right 09/09/2018 FOOT; [facility] COLONOSCOPY 09/19/[address] Hyde DILATION AND CURETTAGE OF UTERUS 05/18/2019 HYSTEROSCOPY 12/23/2021 LEG AMPUTATION THROUGH KNEE Right 06/16/2019 UPPER GASTROINTESTINAL ENDOSCOPY N/A 06/29/2023 Dr Sergio Sibley at [facility]; no specimens WISDOM TOOTH EXTRACTION Social [...] before lunch/285 units before dinner Lactobacillus Acid-Pectin (Acidophilus/Nyack Pectin) tablet Take 1 tablet by mouth [...] Mobile Relation: Other Rachael Robertson APRN - [facility] Division of Hospitalist Medicine Inpatient Medical Services/[facility] Associated attestation - Carly Nino MD - 10/08/2023 6:08 PM EST I have reviewed the case with the PA/CASE LOADER OPERATOR. I agree with the current plan of [...] this encounter [facility] 10-07-2023 Emergency department Note Physician's ambulance arrived for transport. Hand off report given to medics. Broenna Palmer RN 10/07/23 3179 Phoned [facility] 4W. Hand off report given to PASTORA Martínez. Breonna Palmer RN 10/07/23 1444 Patient given orange juice. Breonna Palmer RN 10/07/23 1423 Phoned PASTORA Ochoa at [facility] and gave update that patient is to be admitted to [facility] and is currently in stable [...] this time. Breonna Palmer RN 10/07/23 0952 Carson warmer removed from patient. Oral temp 97.5 [...] who presents to the emergency department from [facility] for hypoglycemia/unresponsiveness. Spoke to Juliane, nurse [...] intake for dinner at 5p (?some soup). Pmubf-cr-ftkc glucose last night was 116 and he was given 3 glasses of apple juice prior to bed. Found unresponsive and diaphoretic at 0445. Zhyqu-jg-ksvh glucose 36 at that time. Given 2 doses of glucagon which improved his aelds-ll-tvpn glucose to 61. Glucose was 90 upon EMS arrival. EMS gave nothing in transport. Repeat uhgda-zy-leau glucose 68 here. Juliane reports that mentation [...] (HCC) Anxiety disorder Bipolar 1 disorder ([facility]) Blood circulation, collateral Cellulitis chronic L lower leg COVID 12/08/2021 Depression Diabetes mellitus ([facility]) Type II, on insulin Disease of blood [...] tissue disorders Other symbolic dysfunctions Schizophrenia ([facility]) Sleep apnea no CPAP Venous insufficiency SURGICAL HISTORY Past Surgical History: Procedure Laterality Date ABCESS DRAINAGE Right 09/09/2018 FOOT; [facility]CH COLONOSCOPY 09/19/[address] Hyde DILATION AND CURETTAGE OF UTERUS 05/18/2019 HYSTEROSCOPY 12/23/2021 LEG AMPUTATION THROUGH KNEE Right 06/16/2019 UPPER GASTROINTESTINAL ENDOSCOPY N/A 06/29/2023 Dr Sergio Sibley at [facility]; no specimens WISDOM TOOTH EXTRACTION CURRENT [...] Abnormal Glucose 68 (*) Narrative: Performed by: [email or web address], [address] [place] [address] CLIA ID: [id number] LACTIC ACID WITH REFLEX - Normal LACTIC ACID 1.2 POCT GLUCOSE METER UNSOLICITED RESULTS - Normal Glucose 100 Narrative: Performed by: [email or web address], [address] [place] [address] CLIA ID: [id number] BLOOD CULTURE URINE CULTURE RESPIRATORY PATHOGENS PANEL BY PCR BLOOD CULTURE COMPLETE URINALYSIS WITH REFLEX TO CULTURE Narrative: The following orders were created for panel order Urinalysis Complete with reflex to Culture. Procedure Abnormality Status --------- ------ Complete Urinalysis[[id number]] Please view results for these tests on [...] who presents to the emergency department from [facility] for hypoglycemia/unresponsiveness. Spoke to Juliane, nurse taking care of him overnight, who reports he was last seen well at 0400 this morning when he asked patient care nursing assistant to turn on fan because he felt warm. Entirety of HPI obtained from transporting EMS staff and [place] staff due to patient unresponsiveness. Juliane reports [...] intake for dinner at 5p (?some soup). Mmups-uh-afav glucose last night was 116 and he was given 3 glasses of apple juice prior to bed. Found unresponsive and diaphoretic at 0445. Hcpbl-hg-bnam glucose 36 at that time. Given 2 doses of glucagon which improved his phdnb-ll-lowe glucose to 61. Glucose was 90 upon EMS arrival. EMS gave nothing in transport. Repeat mvhlc-hd-xgww glucose 68 here. Juliane reports that mentation [...] necessitating ultrasound-guided IV line by myself. Repeat bduyj-rc-ldsg glucose upon obtaining IV line 100. Amp [...] on repeat evaluation. Disposition changed to [facility] telemetry. Accepted by Dr. Spring [...] Jacinto, age 57, came to ED6 by [facility] for a chief complaint of hypoglycemia. [facility] stated halfway last seen him Aox3 at around 0400. teaching aide went in to check on pt and pt was unresponsive with a blood sugar of 36. Nurses at halfway gave him 2 glucagon IM injections and pt's blood sugar came up to 60. EMS reported a blood sugar of 90. On assessment, pt's rectal temp was 91.4F. Blood sugar was 63. Bear hugger applied. Physician put in 20G IV using the ultrasound. Amp of Dextrose given and liter of NS warmed infusing. panel monitor applied. Vitals obtained. documented in this encounter [facility] 09-20-2023 Telephone encounter Note Please keep doses the same thank you [facility] [employer] Work Phone: 09-20-2023 Miscellaneous Notes Please keep doses the same thank you Images from the original note were not included. Patient BGL documented in this encounter [facility] 09-20-2023 Telephone encounter Note Images from the original note were not included. Patient BGL [facility] 08-31-2023 Telephone encounter Note Faxed response to [facility]. Thank you! [facility] 08-31-2023 Miscellaneous Notes Faxed response to [facility]. Thank you! Please keep doses the same thank you Images from the original note were not included. Patient's BGL documented in this encounter [facility] [employer] 08-30-2023 Telephone encounter Note Please keep doses the same thank you [facility] [employer] Work Phone: 08-30-2023 Telephone encounter Note Images from the original note were not included. Patient's BGL [facility] 08-19-2023 Note Formatting of this n ote might be different from the original. RN called asking me to sign the med rec so the patient can be transported to [facility]< Signed the med reconciliation form [facility] [employer] Work Phone: 08-19-2023 Note Formatting of this n ote might be different from the original. RN called asking me to sign the med rec so the patient can be transported to [facility]< [facility] 08-19-2023 Miscellaneous Notes RN called asking me to sign the med rec so the patient can be transported to SNF< Signed the med reconciliation form Spoke with patient. Agreeable to returning back to [facility]. Updated facility via [facility] of discharge today and transport time of 430pm. PRINTED CIRCUIT DESIGNER tasked to send discharge packet to facility. . Plan for patient to discharge today. Discharge order has been placed. Transportation arranged through [facility] by cot set for 4:30 pm. Notified RN and covering TCC of this. Will update patient at bedside. SW remains available if any other needs or concerns arise. Discharge med list transmitted to return back to [facility] per TCC request. Referral placed to return back to [facility] per TCC request. Await review and response regarding ability to accept. TCC notified. Inpatient status from [facility] with abdominal pain. Admitted to [facility]. [...] iv x 1 throughout the night.Did task PRINTED CIRCUIT DESIGNER to send referral to [facility]. Discharge plan is to return to [facility] when medically stable... Problem: Pain Goal: My pain/discomfort is manageable Outcome: Progressing met Ice therapy offer/repositioning Problem: Safety Goal: Patient will be injury free during hospitalization Outcome: Progressing met Educate on using call light/ frequent rounding documented in this encounter [facility] 08-19-2023 History of Presen t illness Narrative Report called to Ana at [facility]. Department of Internal Medicine Division of Endocrinology, Diabetes, & Metabolism Endocrinology Note Patient Name: Will Jacinto : 1965 AGE: 57 y.o. Room/Bed: [facility] Admission Date: 08/17/2023 Visit Date: 08/19/2023 Reason for Endocrine Consult: DM2 Uncontrolled Provider/Team Requesting Consult: Dr. Hill PCP: Jared Guzman Outpt Physician'S Assistant: Yes [facility] endocrinology Last seen 02/09/2023, Next appointment 10/27/2023 ASSESSMENT: Type 2 diabetes mellitus with hyperglycemia with senior care insulin use Leukocytosis Bipolar disorder Dm2 severe [...] before lunch/285 units before dinner Lactobacillus Acid-Pectin (Acidophilus/Nyack Pectin) tablet 1 tablet, Oral, 2 times [...] found for: CHOLHDLRATIO No results found for: [id number] Lab Results Component Value Date TSH 2.356 [...] ENDOSCOPY N/A 06/29/2023 Dr Sergio Sibley at [facility]; no specimens WISDOM TOOTH EXTRACTION Allergy(ies): [...] not included. [facility] Group - Infectious Diseases Attending Progress [...] be of moderate complexity. Art Reddy MD, [facility] Nutrition rescreen complete. Pt assigned a level one for nutrition care. Images from the original note were not included. PHYSICAL THERAPY [facility] Name/MRN: Maria Luisa Jacinto ([id number]) Date: 08/18/2023 PT evaluation orders received and chart review completed. Pt from nursing facility and lives there senior care. 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 No acute PT needs identified. Rec return to [facility] with no PT. Mai Argueta PT Images from the original note were not included. Occupational Therapy OCCUPATIONAL THERAPY [facility] Name/MRN: Maria Luisa Jacinto ([id number]) Date: 08/18/2023 Therapy eval and treat orders [...] this encounter [facility] 08-19-2023 Note Formatting of this n ote might be different from the original. Spoke with patient. Agreeable to returning back to [facility]. Updated facility via [facility] of discharge today and transport time of 430pm. [facility] tasked to send discharge packet to facility. . [facility] 08-19-2023 Note Formatting of this n ote might be different from the original. Spoke with patient. Agreeable to returning back to [facility]. Updated facility via [facility] of discharge today and transport time of 430pm. [facility] tasked to send discharge packet to facility. . [facility] 08-19-2023 Note Formatting of this n ote might be different from the original. Plan for patient to discharge today. Discharge order has been placed. Transportation arranged through [facility] by cot set for 4:30 pm. Notified RN and covering TCC of this. Will update patient at bedside. SW remains available if any other needs or concerns arise. [facility] 08-19-2023 Note Formatting of this n ote might be different from the original. Plan for patient to discharge today. Discharge order has been placed. Transportation arranged through [facility] by cot set for 4:30 pm. Notified RN and covering TCC of this. Will update patient at bedside. SW remains available if any other needs or concerns arise. T [facility] 08-19-2023 Note Formatting of this n ote might be different from the original. Discharge med list transmitted to return back to [facility] per TCC request. T [facility] 08-19-2023 Note Formatting of this n ote might be different from the original. Discharge med list transmitted to return back to [facility] per TCC request. [facility] 08-19-2023 Hospital course Narrative Discharge Summary Will [...] August 20, 2023 CONTINUE taking these medications Acidophilus/Nyack Pectin tablet ARIPiprazole 10 MG tablet Commonly [...] Complexity: follow up within 7-14 calendar days (91638) [] Severe Complexity: follow up within 7 calendar days (18651) FOLLOW UP TESTING, PENDING RESULTS OR REFERRALS [...] this encounter [facility] 08-19-2023 Note Formatting of this n ote might be different from the original. Referral placed to return back to [facility] via [facility] per TCC request. Await review and response regarding ability to accept. TCC notified. [facility] 08-19-2023 Note Formatting of this n ote might be different from the original. Referral placed to return back to [facility] via [facility] per TCC request. Await review and response regarding ability to accept. TCC notified. [facility] 08-19-2023 Hospital Discharg e instructions Kota Luque [...] ENDOSCOPY N/A 06/29/2023 Dr Sergio Sibley at [facility]; no specimens WISDOM TOOTH EXTRACTION Immunization [...] with type 2 diabetes mellitus (CMS/HCC) ([facility]) Esophagitis Nausea and vomiting Hyperlipidemia Cellulitis and abscess of lower extremity Chronic acquired lymphedema Cellulitis Hyperandrogenism Uncontrolled type 2 diabetes mellitus with complication Chronic osteomyelitis (CMS/HCC) ([facility]) 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 ([facility]) Class 3 severe obesity due to excess calories with serious comorbidity and body mass index (BMI) of 50.0 to 59.9 in adult ([facility]) Type 2 diabetes mellitus with hyperglycemia, with long-term current use of insulin ([facility]) Hyperglycemia Post-menopausal bleeding Morbid obesity ([facility]) Left leg cellulitis Diabetic foot infection S/P AKA (above knee amputation) unilateral, right ([facility]) Class 3 severe obesity due to excess calories with serious comorbidity and body mass index (BMI) of 60.0 to 69.9 in adult ([facility]) Isolation/Infection: No active isolations No active infections [...] Total assistance Toileting Total assistance Feeding Independent Senior Technologist Independent Med Delivery yes Wound Care Documentation [...] select all that are sent with patient): {[facility] Patient Belongings:[id number]} RN SIGNATURE: MANAGEMENT/SOCIAL WORK SECTION Inpatient Status Date: Readmission Risk Assessment Score: @READMISSIONRISKDETAILS@ Discharging to Facility/ Agency Name: [facility] Address:[address] [place] [address] Dialysis Facility (if applicable) Name: Address: Dialysis Schedule: Phone: Fax: Um Nurse/Restaurant Team Member signature: ICIAN SECTION Prognosis: fair Condition at Discharge: stable Rehab Potential (if transferring to Rehab): fair Recommended Labs or Other Treatments After Discharge: Physician Certification: I certify the above information and transfer of Will Jacinto is necessary for the continuing treatment of the diagnosis listed and that he requires [facility] facility for greater than 30 days. Update Admission H&P: No change in H&P PHYSICIAN SIGNATURE: documented in this encounter [facility] 08-19-2023 Note Formatting of this n ote might be different from the original. Inpatient status from [facility] with abdominal pain. Admitted to [facility]. ID consulted as patient was in ER 10 days ago with diagnosis of pyelonephritis. Started on po diflucan. Endocrinology consulted. BS ac and hs with ss coverage. BS was 29 on 08/17. BS 223 this am. Urine cultures on 08/08 positive for klebsiella(per ID note adequately treated with antimicrobial for last 10 days). Did require apresoline iv x 1 throughout the night.Did task PRINTED CIRCUIT DESIGNER to send referral to [facility]. Discharge plan is to return to [facility] when medically stable... [facility] 08-19-2023 Note Formatting of this n ote might be different from the original. Inpatient status from [facility] with abdominal pain. Admitted to [facility]. ID consulted as patient was in ER 10 days ago with diagnosis of pyelonephritis. Started on po diflucan. Endocrinology consulted. BS ac and hs with ss coverage. BS was 29 on 08/17. BS 223 this am. Urine cultures on 08/08 positive for klebsiella(per ID note adequately treated with antimicrobial for last 10 days). Did require apresoline iv x 1 throughout the night.Did task PRINTED CIRCUIT DESIGNER to send referral to [facility]. Discharge plan is to return to [facility] when medically stable... [facility] 10-11-2023 Plan of care note Problem: Pain Goal: My pain/discomfort is manageable Outcome: Progressing met Ice therapy offer/repositioning Problem: Safety Goal: Patient will be injury free during hospitalization Outcome: Progressing met Educate on using call light/ frequent rounding [facility] 08-18-2023 Emergency department Note Endocrinology pagekristina, have tried to contact multiple times in regards to Insulin order w/o response. Flor Alonso RN 08/18/23 1214 [facility] 08-18-2023 Emergency department Note Endocrinology melodie, have [...] otherwise acutely negative except as in the [place]. PAST MEDICAL HISTORY Past Medical History: Diagnosis [...] tissue disorders Other symbolic dysfunctions Schizophrenia ([facility]) Sleep apnea no CPAP Venous insufficiency SURGICAL HISTORY Past Surgical History: Procedure Laterality Date ABCESS DRAINAGE Right 09/09/2018 FOOT; [facility] COLONOSCOPY 09/19/[address] Hyde DILATION AND CURETTAGE OF UTERUS 05/18/2019 HYSTEROSCOPY 12/23/2021 LEG AMPUTATION THROUGH KNEE Right 06/16/2019 UPPER GASTROINTESTINAL ENDOSCOPY N/A 06/29/2023 Dr Sergio Sibley at [facility]; no specimens WISDOM TOOTH EXTRACTION CURRENT [...] Physician EKG interpretation can be found in [facility] RADIOLOGY (Per Emergency Physician): Interpretation per [...] Culture. Procedure Abnormality Status --------- ------ Complete Urinalysis[[id number]] Please view results for these tests on [...] medicine further management Brandon Leblanc DO 08/17/23 2978 Arrived [facility] ABD pain /10 x [...] this encounter [facility] 08-18-2023 Consult note Associated Order (s): IP CONSULT TO ENDOCRINOLOGY Department of Internal Medicine Division of Endocrinology, Diabetes, & Metabolism Endocrinology Note Patient Name: Will Jacinto : 1965 AGE: 57 y.o. Room/Bed: 06/15 Admission Date: 08/17/2023 Visit Date: 08/18/2023 Reason for Endocrine Consult: DM2 Uncontrolled Provider/Team Requesting Consult: Dr. 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 Leukocytosis Bipolar [...] times daily with meals Outpt Follow Up-- [facility] endocrinology SUBJECTIVE/HPI: CHIEF COMPLAINT: Chief Complaint Patient [...] before lunch/285 units before dinner Lactobacillus Acid-Pectin (Acidophilus/Nyack Pectin) tablet 1 tablet, Oral, 2 times [...] found for: CHOLHDLRATIO No results found for: [id number] Lab Results Component Value Date TSH 2.356 [...] 08/17/2023 Patient Name: WILL JACINTO : 1965 [facility]#: [id number] Exam Date/Time: 08/17/2023 15:08 Procedure: CT ABDOMEN [...] (HCC) Anxiety disorder Bipolar 1 disorder ([facility]) Blood circulation, collateral Cellulitis chronic L lower leg COVID 12/08/2021 Depression Diabetes mellitus ([facility]) Type II, on insulin Disease of blood and blood forming organ Endometrial carcinoma ([facility]) 11/25/2020 Endometrial hyperplasia Foot ulcer ([facility]) Hx of blood clots RLE prior to amputation Hyperlipidemia Hypertension Lymphedema 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 [facility] 08-18-2023 Consult note Associated Order (s): IP CONSULT TO ENDOCRINOLOGY Department of Internal Medicine Division of Endocrinology, Diabetes, & Metabolism Endocrinology Note Patient Name: Will Jacinto : 1965 AGE: 57 y.o. Room/Bed: 06/15 Admission Date: 08/17/2023 Visit Date: 08/18/2023 Reason for Endocrine Consult: DM2 Uncontrolled Provider/Team Requesting Consult: Dr. Hill PCP: Jared Guzman Outpt Physician'S Assistant: Yes [facility] endocrinology Last seen 02/09/2023, Next appointment 10/27/2023 ASSESSMENT: Type 2 diabetes mellitus with hyperglycemia with senior care insulin use Leukocytosis Bipolar disorder Dm2 severe [...] times daily with meals Outpt Follow Up-- [facility] endocrinology SUBJECTIVE/HPI: CHIEF COMPLAINT: Chief [...] before lunch/285 units before dinner Lactobacillus Acid-Pectin (Acidophilus/Nyack Pectin) tablet 1 tablet, Oral, 2 times [...] found for: CHOLHDLRATIO No results found for: [id number] Lab Results Component Value Date TSH 2.356 [...] (HCC) Anxiety disorder Bipolar 1 disorder ([facility]) Blood circulation, collateral Cellulitis chronic L lower leg COVID 12/08/2021 Depression Diabetes mellitus ([facility]) Type II, on insulin Disease of blood and blood forming organ Endometrial carcinoma ([facility]) 11/25/2020 Endometrial hyperplasia Foot ulcer ([facility]) Hx of blood clots RLE prior to amputation Hyperlipidemia Hypertension Lymphedema MDRO (multiple drug resistant organisms) resistance hx CRE and MRSA in 2018, RLE Morbidly obese ([facility]) Muscle weakness Osteomyelitis (HCC) Osteomyelitis ([facility]) 2019 RLE Other lack of coordination Other [...] ENDOSCOPY N/A 06/29/2023 Dr Sergio Sibley at [facility]; no specimens WISDOM TOOTH EXTRACTION Allergy(ies): [...] from the original note were not included. [facility] - Infectious Diseases Attending Consult Note Reason for Consult: Complicated UTI History of Present Illness: Patient is 57 year old admitted to [facility] with abdominal discomfort N/V. Patient was [...] absence of other toe(s), unspecified side ([facility]) Anxiety disorder Bipolar 1 disorder ([facility]) Blood circulation, collateral Cellulitis chronic L lower leg COVID 12/08/2021 Depression Diabetes mellitus ([facility]) Type II, on insulin Disease of blood and blood forming organ Endometrial carcinoma ([facility]) 11/25/2020 Endometrial hyperplasia Foot ulcer ([facility]) Hx of blood clots RLE prior to amputation Hyperlipidemia Hypertension Lymphedema MDRO (multiple drug resistant organisms) resistance hx CRE and MRSA in 2018, RLE Morbidly obese ([facility]) Muscle weakness Osteomyelitis (HCC) Osteomyelitis ([facility]) 2019 RLE Other lack of coordination Other specified soft tissue disorders Other symbolic dysfunctions Schizophrenia ([facility]) Sleep apnea no CPAP Venous insufficiency Past Surgical History: Past Surgical History: Procedure Laterality Date ABCESS DRAINAGE Right 09/09/2018 FOOT; ACH COLONOSCOPY 09/19/[address] Hyde DILATION AND CURETTAGE OF UTERUS 05/18/2019 HYSTEROSCOPY 12/23/2021 LEG AMPUTATION THROUGH KNEE Right 06/16/2019 UPPER GASTROINTESTINAL ENDOSCOPY N/A 06/29/2023 Dr Sergio Sibley at [facility]; no specimens WISDOM TOOTH EXTRACTION Current [...] % infusion 100 mL/hr IntraVENous PRN Negritan Toledo, DO dextrose 50 % solution 12.5 g [...] before lunch/285 units before dinner Lactobacillus Acid-Pectin (Acidophilus/Nyack Pectin) tablet Take 1 tablet by mouth [...] this encounter [facility] 08-18-2023 History and physical note Department of [...] ENDOSCOPY N/A 06/29/2023 Dr Sergio Sibley at [facility]; no specimens WISDOM TOOTH EXTRACTION Medications [...] 2 diabetes mellitus with complication Chronic osteomyelitis (CMS/[facility]) ([facility]) 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 ([facility]) Class 3 severe obesity due to excess calories with serious comorbidity and body mass index (BMI) of 50.0 to 59.9 in adult ([facility]) Type 2 diabetes mellitus with hyperglycemia, with long-term current use of insulin ([facility]) Hyperglycemia Post-menopausal bleeding Morbid obesity ([facility]) Left leg cellulitis Diabetic foot infection S/P AKA (above knee amputation) unilateral, right ([facility]) Class 3 severe obesity due to excess calories with serious comorbidity and body mass index (BMI) of 60.0 to 69.9 in adult ([facility]) Chest pain Chest pain, unspecified type Upper abdominal pain Intertriginous homa Abd pain DM 2 HTN HPL Plan Obs admit Hopefully back to [facility] tomorrow NABIL HILL DO 08/18/23 10:00 AM [facility] 08-18-2023 History and physical note Department of [...] knee amputation of right lower extremity ([facility]) Acquired absence of other toe(s), unspecified side [...] ENDOSCOPY N/A 06/29/2023 Dr Sergio Sibley at [facility]; no specimens WISDOM TOOTH EXTRACTION Medications [...] this encounter [facility] 08-18-2023 Consult note Associated Order (s): IP CONSULT TO INFECTIOUS DISEASES Images from the original note were not included. [facility] Medical Group - Infectious Diseases Attending Consult Note Reason for Consult: Complicated UTI History of Present Illness: Patient is 57 year old admitted to [facility] with abdominal discomfort N/V. Patient was [...] 06/16/2019 UPPER GASTROINTESTINAL ENDOSCOPY N/A 06/29/2023 Dr eSrgio Sibley at [facility]; no specimens WISDOM TOOTH EXTRACTION Current [...] 12.5 g 12.5 g IntraVENous PRN Jaklyn Deana, DO 12.5 g at 08/17/23 1809 [...] before lunch/285 units before dinner Lactobacillus Acid-Pectin (Acidophilus/Nyack Pectin) tablet Take 1 tablet by mouth [...] accounting for open encounter. Art Reddy MD, [facility] [place] [facility] 08-17-2023 Emergency department Note Bed: 27 Expected date: Expected time: Means of arrival: Comments: PHYSICIANS Lisa Curtis RN 08/17/23 1215 [facility] 08-17-2023 Emergency department Note Bed: 08 Expected date: Expected time: Means of arrival: Comments: Main 2 Dalila Mendes RN 08/17/232045 [facility] 08-17-2023 Emergency department Triage note Arrived via [...] of care [facility] 08-17-2023 Physician Emergency department Note EMERGENCY DEPARTMENT [...] otherwise acutely negative except as in the [facility]. PAST MEDICAL HISTORY Past Medical History: Diagnosis [...] ENDOSCOPY N/A 06/29/2023 Dr Sergio Sibley at [facility]; no specimens WISDOM TOOTH EXTRACTION CURRENT [...] Culture. Procedure Abnormality Status --------- ------ Complete Urinalysis[[id number]] Please view results for these tests on [...] 08/17/23 1528 [facility] 08-17-2023 Physician Emergency department Note Pt signed [...] 08/17/23 2249 [facility] 08-12-2023 Telephone encounter Note Faxed over recommendation. Thank you! [facility] 08-12-2023 Miscellaneous Notes Faxed over recommendation. Thank you! Please keep doses the same thank you Images from the original note were not included. Patient BGL documented in this encounter [facility] 08-12-2023 Telephone encounter Note Please keep doses the same thank you [facility] Work Phone: 08-11-2023 Telephone encounter Note Images from the original note were not included. Patient BGL [facility] 08-09-2023 Telephone encounter Note Pt rescheduled appt with herber Ramos to 08/13/23; respiratory consult for lung nodule was placed on 08/07/[address] AP confirmed 7mm lung nodule. Navigator will continue to follow and assist with follow up as needed after appt 08/13. [facility] 08-09-2023 Miscellaneous Notes Pt rescheduled appt with [...] Guzman office. Received call from someone at [phone] stating they got a call to this [...] this encounter [facility] 08-08-2023 Emergency department Note Physicians A.S.arrived and report given. Patient returned to SNF. SNF was informed. Karlos Garcia RN 08/08/23 1448 Karlos Garcia RN 08/08/23 1449 [facility] 08-08-2023 Emergency department Note Physicians A.S.arrived and report given. Patient returned to SNF. SNF was informed. Karlos Garcia RN 08/08/23 1448 Karlos Garcia RN 08/08/23 1449 Karlos Garcia RN 08/08/23 1123 Karlos Garcia RN 08/08/23 1123 Bed: 17 Expected date: Expected time: Means of arrival: Comments: Nalini Mendes RN 08/08/23 0632 documented in this encounter [facility] 08-08-2023 Emergency department Note Karlos Garcia RN 08/08/231122 Karlos Garcia RN 08/08/231122 [facility] 08-08-2023 Emergency department Note Bed: 17 Expected date: Expected time: Means of arrival: Comments: Nalini Mendes RN 08/08/23 0632 [facility] 07-23-2023 Telephone encounter Note Pt to see Herber Ramos in [facility] 07/30/23 [facility] 07-23-2023 Miscellaneous Notes Pt to see Herber Ramos in [facility] 07/30/[address] Guzman office, pt does not have any scheduled fu. Provided new phone number for patient. Added to chart. Faxed report and contact info for navigator to Jared Guzman office. Received call from someone at [phone] stating they got a call to this [...] this encounter [facility] 07-20-2023 Telephone encounter Note Contacted Dr. Guzman office, pt does not have any scheduled fu. Provided new phone number for patient. Added to chart. [facility] 07-20-2023 Telephone encounter Note Faxed report and contact info for navigator to Jared Guzman office. [facility] 07-20-2023 Telephone encounter Note Received call from someone at [phone] stating they got a call to this number and this is a work phone. Patient and person identified via phone do not match. Will not attempt phone number again. EC contact attempted but no answer. [facility] 07-15-2023 Telephone encounter Note Lm requesting a return phone call to discuss finding [facility] 07-05-2023 Telephone encounter Note Patient appeared on ED Nuance search after CTA chest 06-28-2023 noted a 7 mm right middle lobe lung nodule. Imaging was completed for chest pain and history of DVT. Outside facility imaging on 11-22-2020 noted a right middle lobe 3 mm nodule. Requested outside facility imaging for comparison to determine whether this is an enlarging finding.Await comparison report. [facility] 07-01-2023 Note Formatting of this n ote might be different from the original. Return to [facility] this afternoon at 1:00. [facility] messaged the facility with the dc time. Physicians ambulance to transport. Ambulance transport form completed. [facility] 07-01-2023 Note Formatting of this n ote might be different from the original. Return to [facility] this afternoon at 1:00. [facility] messaged the facility with the dc time. [facility] ambulance to transport. Ambulance transport form completed. [facility] 07-01-2023 Miscellaneous Notes Return to [facility] this afternoon at 1:00. [facility] messaged the facility with the dc time. [facility] ambulance to transport. Ambulance transport form completed. Discharge med list transmitted to [facility] via [facility] per [facility] request. Patient Choice Patient Name: WILL JACINTO Date of : 1965 All Providers Sent Referral Name: [facility] Phone: [phone] Address: [address] [place] [address] Images from the original note were not included. Care Management Progress Note Pt has discharge order placed. Tasked PRINTED CIRCUIT DESIGNER to send discharge paperwork to [facility]. Notified CORPORATE BANKING OFFICER to arrange transportation. Facility notified pt to return today. Discharge Milestones and Delays Expected Date/Time: 07/01/2023 Midday Disposition: Halfway Facility Transport status: No current request Discharge [...] ACS. Endocrine following. Pt to return to [facility] at discharge. Discharge Milestones and Delays Expected [...] for EGD today. Wheelchair bound. DC plan: [facility], bed hold. No authorization needed. Discharge Milestones [...] obtained: None Medications administered: 200mg Propofol per RESEARCH PROGRAM ASSISTANT Additional Info: Adult diet regular; 3 carb choices (45gm/meal); see Dr Sibley' orders For additional Questions please call Endoscopy at [phone]. Thank You! Dr [facility]ible[facility] in [facility] Name[facility] Will Jacinto Procedure Date: 06/29/2023 8:19 AM Gender: Female Date of : 1965 Age: 57 Admit Type: Inpatient Note Status: Finalized Endoscopist: Sergio Sibley DO, [id number] Procedure: Upper GI endoscopy Indications: Chest pain [...] immediate complications. Procedure Code(s): --- Professional --- 88777, Esophagogastroduodenoscopy, flexible, transoral; diagnostic, including collection of specimen(s) by brushing or washing, when performed (separate procedure) --- Technical --- 05115, Esophagogastroduodenoscopy, flexible, transoral; diagnostic, including collection of specimen(s) by brushing or washing, when performed (separate procedure) Diagnosis Code(s): --- Professional --- R07.89, Other chest pain R11.2, Nausea with vomiting, unspecified --- Technical --- R07.89, Other chest pain R11.2, Nausea with vomiting, unspecified CPT copyright 2021 [employer]. All rights reserved. The codes documented in this report are preliminary and upon braille coder review may be revised to meet current [...] Limits Permission given to speak with patient ambulatory service representative/caregiver as indicated: Yes (Jovana Quesada ([facility]) [phone]) Confirmation of Payer with patient/family: Yes Payer Name: [facility] Dual [place]: No Confirmation of Primary Care Physician: Confirmed PCP Name: Jared Guzman Seen in last 2 years?: Yes Primary Caregiver: Other (Comment) ([facility] staff) If assistance needed, confirmed caregiver ready, willing and able to care for patient at discharge: Yes Confirmed with: Patient states staff from [facility] Living Arrangements Current Residence: ([facility]) Number of Floors Number of Entry Steps: Bed/Bath Levels: Facility: Halfway/[facility] Facility Name: [facility] Plan to Return: Yes Lives with: Support Systems: Family members Activities of Daily Living Ambulation: Total Care (wheelchair) Bathing/Dressing: Total Care Elimination/Continence/Toileting : Assistance Feeding: Independent Who Assists with Activities of Daily Living: Staff from [facility] Instrumental Activities of Daily Living Prescription Coverage: Yes Pharmacy Used: Pharmacy through [facility] Medication Management: Assistance Type: Dose packaging system Who assists with medication securing and setup?: [facility] staff Transportation/Shopping: Assistance Provider Transportation Mode: Needs Assistance with Transportation at Discharge: No Meal Preparation: Assistance Provider Meal Prep Assistance Provider Name: [facility] staff Laundry/Cleaning: Assistance Provider Laundry/Cleaning Assistance Provider Name: [facility] staff Finances/Bill Paying: Assistance Provider Finances/Bill Payer Assistance Provider Name: Family Communication: Independent Types of Care Services/Equipment Utilized Care Services: Dialysis Type: NA Durable Medical Equipment: Wheelchair (standard or power) Patient's Goal/Discharge Plan Patient expects to be discharged to: Back to [facility]. Discharge Planning Actions: Continue to follow [...] R bka, is wheelchair bound. Lives at [facility] and plans to return. Cardiology consulted. Task sent to [facility] to [facility] return referral to [facility]. TCC will continue to follow. Herber Armando RN Patient was referred to the [facility] service for admission but his primary care physician is covered by Dr. Hill. Dr. Hill will see and admit. Attending changed to Dr. Hill. documented in this encounter [facility] 07-01-2023 Note Formatting of this n ote might be different from the original. Discharge med list [facility] to [facility] per [facility] request. [facility] 07-01-2023 Note Formatting of this n ote might be different from the original. Discharge med list transmitted to [facility] request. [facility] 07-01-2023 Hospital course Narrative Discharge Summary Will [...] MEDICATIONS: Medication List CONTINUE taking these medications Acidophilus/Nyack Pectin tablet ARIPiprazole 10 MG tablet Commonly [...] Complexity: follow up within 7-14 calendar days (82636) [] Severe Complexity: follow up within 7 calendar days (24362) FOLLOW UP TESTING, PENDING RESULTS OR REFERRALS AT TRANSITIONAL CARE VISIT: [] Yes [] No PENDING STUDIES: none DISPOSITION: Skilled Facility FACILITY/HOME CARE AGENCY NAME: [facility] Follow up with Sergio Sibley DO [address] [facility] [id number] Follow up As needed INSTRUCTIONS TO MA/SW: [...] this encounter [facility] 07-01-2023 Note Formatting of this n ote might be different from the original. Patient Choice Patient Name: WILL JACINTO Date of : 1965 All Providers Sent Referral Name: [employer] Phone: [phone] Address: [address] [place] [address] [facility] 07-01-2023 Note Formatting of this n ote might be different from the original. Patient Choice Patient Name: WILL JACINTO Date of : 1965 All Providers Sent Referral Name: [employer] Phone: [phone] Address: [address] [place] [address] [facility] 07-01-2023 Note Formatting of this n ote is different from the original. Images from the original note were not included. Care Management Progress Note Pt has discharge order placed. Tasked PRINTED CIRCUIT DESIGNER to send discharge paperwork to [facility]. Notified CORPORATE BANKING OFFICER to arrange transportation. Facility notified pt to return today. Discharge Milestones and Delays Expected Date/Time: 07/01/2023 Midday Disposition: Halfway Facility Transport status: No current request Discharge [...] GMLOS: 1.7 [facility] 07-01-2023 Note Formatting of this n ote is different from the original. Images from the original note were not included. Care Management Progress Note Pt has discharge order placed. Tasked PRINTED CIRCUIT DESIGNER to send discharge paperwork to [facility]. Notified CORPORATE BANKING OFFICER to arrange transportation. Facility notified pt to return today. Discharge Milestones and Delays Expected Date/Time: 07/01/2023 Midday Disposition: Halfway Facility Transport status: No current request Discharge [...] GMLOS: 1.7 [facility] 06-30-2023 Hospital Discharg e instructions David Lui RN - 06/30/2023 7:25 PM EDT Continuity of Care Form Patient Name: Will Jacinto : 1965 Admit date: 06/28/2023 Discharge date: 07/01/23 Code Status Order: Full Code Advance Directives: N Admitting Physician: Nabil Hill DO PCP: Jared Guzman Discharging Nurse: Janina Discharging Hospital Unit/Room#: B2-257/B2-257 A Discharging Unit Phone Number: [phone] Emergency Contact: Extended Emergency Contact Information Primary [...] ENDOSCOPY N/A 06/29/2023 Dr Sergio Sibley at [facility]; no specimens WISDOM TOOTH EXTRACTION Immunization History: Immunization History Administered Date(s) Administered Covid-19, Pfizer Cazares Top, Do Not Dilute, (Age 12 Y+), Im, L 02/26/2022 Influenza, injectable, quadrivalent, preservative free 01/14/2019, 08/12/2021 Pfizer SARS-CoV-2 Vaccination 11/13/2020, 12/04/2020, 08/28/2021 Active Problems: Medical Problems Problem List * (Principal) Chest pain Hypertension Chest pain, unspecified type Endometrial carcinoma (HCC) Endometrial hyperplasia Diabetic hyperosmolar non-ketotic state ([facility]/HCC) ([facility]) Thickened endometrium Ileus ([facility]/HCC) ([facility]) Complex endometrial hyperplasia with atypia Diabetic gastroparesis associated with type 2 diabetes mellitus ([facility]) ([facility]) Esophagitis Nausea and vomiting Hyperlipidemia Cellulitis and abscess of lower extremity Chronic acquired lymphedema Cellulitis Hyperandrogenism Uncontrolled type 2 diabetes mellitus with complication Chronic osteomyelitis ([facility]) ([facility]) 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 ([facility]) Class 3 severe obesity due to excess calories with serious comorbidity and body mass index (BMI) of 50.0 to 59.9 in adult ([facility]) Type 2 diabetes mellitus with hyperglycemia, with long-term current use of insulin ([facility]) ([facility]) Hyperglycemia Post-menopausal bleeding Morbid obesity ([facility]) Left leg cellulitis Diabetic foot infection ([facility]) S/P AKA (above knee amputation) unilateral, right ([facility]) Class 3 severe obesity due to excess calories with serious comorbidity and body mass index (BMI) of 60.0 to 69.9 in adult ([facility]) Isolation/Infection: Contact CRE Nurse Assessment: Last Vital [...] Total assistance Toileting Total assistance Feeding Independent Senior Technologist Independent Med Delivery yes Wound Care Documentation [...] Score: @READMISSIONRISKDETAILS@ Discharging to Facility/ Agency Name: [facility] Address: [address] [place] [address] Fax: Dialysis Facility (if applicable) Name: Address: Dialysis Schedule: Phone: Fax: Um Nurse/Restaurant Team Member signature: ICIAN SECTION Prognosis: fair Condition at Discharge: stable Rehab Potential (if transferring to Rehab): fair Recommended Labs or Other Treatments After Discharge: none Physician Certification: I certify the above information and transfer of Will Jacinto is necessary for the continuing treatment of the diagnosis listed and that he requires [facility] facility for greater than 30 days. Update Admission H&P: No change in H&P PHYSICIAN SIGNATURE: documented in this encounter [facility] 06-30-2023 Note Formatting of this n ote is different from the original. Images from the original note were not included. Care Management Progress Note Pt remains on 2E due to chest pain. S/P EGD 06/29-GI following.Cardiology- no evidence of ACS. Endocrine following. Pt to return to [facility] at discharge. Discharge Milestones and Delays Expected [...] GMLOS: 1.7 [facility] 06-30-2023 Note Formatting of this n ote is different from the original. Images from the original note were not included. Care Management Progress Note Pt remains on 2E due to chest pain. S/P EGD 06/29-GI following.Cardiology- no evidence of ACS. Endocrine following. Pt to return to [facility] at discharge. Discharge Milestones and Delays Expected [...] Length of Stay (Days): 2 GMLOS: 1.7 [facility] 06-30-2023 History of Presen t illness Narrative [...] : 1965 AGE: 57 y.o. Room[facility]Bed: [facility] Admission Date: 06/28/2023 Visit Date: 06/30/2023 Reason for Endocrine Consult: dm2 Provider/Team Requesting Consult: Dr. Hill PCP: Jared Guzman Outpt Physician'S Assistant: Dr. Lee [facility] endo ASSESSMENT: DM 2 poor control Cheat [...] doses to be determined Outpt Follow Up-- [facility] Lee SUBJECTIVE/HPI: CHIEF COMPLAINT: Chief Complaint [...] before lunch/285 units before dinner Lactobacillus Acid-Pectin (Acidophilus/Nyack Pectin) tablet 1 tablet, Oral, 2 times [...] found for: CHOLHDLRATIO No results found for: [id number] Lab Results Component Value Date TSH 2.356 11/26/2020 Radiology reportsas per the Radiologist Radiology: ECG 12 lead Result Date: 06/28/2023 Sinus tachycardia Nonspecific IVCD with LAD Left ventricular hypertrophy Minimal ST elevation, anterolateral leads Electronically Signed On 06-28-2023 5:20:13 EDT by Rosaura Mustafa CT chest angiogram w and/or wo IV contrast Result Date: 06/28/2023 [facility]: [facility] 1965 [id number] Exam Date/Time: 06/28/2023 03:49 Procedure: CT CHEST [...] 06/28/2023 Patient Name: WILL [facility]ACINTO : 1965 [id number] Exam Date/Time: 06/28/2023 03:08 Procedure: XR CHEST [...] ENDOSCOPY N/A 06/29/2023 Dr Sergio Sibley at [facility]; no specimens WISDOM TOOTH EXTRACTION Allergy(ies): [...] : 1965 AGE: 57 y.o. Room/Bed: [facility]/[address] Admission Date: 06/28/2023 Visit Date: 06/29/2023 Reason for Endocrine Consult: dm2 Provider/Team Requesting Consult: Dr. Hill PCP: Jared Guzman Outpt Physician'S Assistant: Dr. Jesus spear endo ASSESSMENT: DM [...] before lunch/285 units before dinner Lactobacillus Acid-Pectin (Acidophilus/Nyack Pectin) tablet 1 tablet, Oral, 2 times [...] found for: CHOLHDLRATIO No results found for: [id number] Lab Results Component Value Date TSH 2.356 [...] 06/28/2023 Patient Name: WILL JACINTO : 1965 [facility]#: [id number] Exam Date/Time: 06/28/2023 03:08 Procedure: XR CHEST [...] (HCC) Anxiety disorder Bipolar 1 disorder ([facility]) Blood circulation, collateral Cellulitis chronic L lower leg COVID 12/08/2021 Depression Diabetes mellitus ([facility]) Type II, on insulin Disease of blood and blood forming organ Endometrial carcinoma (HCC) 11/25/2020 Endometrial hyperplasia Foot ulcer ([facility]) Hx of blood clots RLE prior to amputation Hyperlipidemia Hypertension Lymphedema 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, RLE Morbidly obese (HCC) Muscle weakness Osteomyelitis (HCC) Osteomyelitis (HCC) 2019 RLE Other lack of coordination Other specified soft tissue disorders Other symbolic dysfunctions Schizophrenia ([facility]) Sleep apnea no CPAP Venous insufficiency Past Surgical History: Past Surgical History: Procedure Laterality Date ABCESS DRAINAGE Right 09/09/2018 FOOT; ACH COLONOSCOPY 09/19/[address] Hyde DILATION AND CURETTAGE OF UTERUS 05/18/2019 HYSTEROSCOPY 12/23/2021 LEG AMPUTATION THROUGH KNEE Right 06/16/2019 UPPER GASTROINTESTINAL ENDOSCOPY N/A 06/29/2023 Dr Sergio Silbey at [facility]; no specimens WISDOM TOOTH EXTRACTION Allergy(ies): [...] this encounter [facility] 06-30-2023 Note Sinus rhythm Abnormal R-wave progression, [...] manage anxiety. [facility] 06-29-2023 Note Formatting of this n ote is different from the original. Images from the original note were not included. Care Management Progress Note Chart reviewed. Patient remains on with chest pain. HX transgender F-M, Schizophrenia, Bipolar. R BKA, is wheelchair bound. Cardiology and GI following. Plan for EGD today. Wheelchair bound. DC plan: [facility], bed hold. No authorization needed. Discharge Milestones [...] GMLOS: 1.7 [facility] 06-29-2023 Note Formatting of this n ote is different from the original. Images from the original note were not included. Care Management Progress Note Chart reviewed. Patient remains on with chest pain. HX transgender F-M, Schizophrenia, Bipolar. R BKA, is wheelchair bound. Cardiology and GI following. Plan for EGD today. Wheelchair bound. DC plan: [facility], bed hold. No authorization needed. Discharge Milestones [...] Length of Stay (Days): 1 GMLOS: 1.7 [facility] 06-29-2023 Procedure anesthe ben Narrative Procedure Name [...] Melissa Sosa RN documented in this encounter [facility] [id number] Note* Perioperative Nursing Note - Usman Ulrich RN - 06/29/2023 10:54 AM EDT Report called to [place]ber [place] [id number] Note* Perioperative Nursing Note - Usman Ulrich RN - 06/29/2023 10:54 AM EDT Report called to Herber [place] [id number] Note* Perioperative Nursing Note - Usman Ulrich RN - 06/29/2023 10:40 AM EDT POST ENDOSCOPY PROCEDURE TRANSFER REPORT Procedure completed: EGD Findings: WDL Specimens obtained: None Medications administered: 200mg Propofol per RESEARCH PROGRAM ASSISTANT Additional Info: Adult diet regular; 3 carb choices (45gm/meal); see Dr Sibley' orders For additional Questions please call Endoscopy at [phone]. Thank You! [facility] [id number] Note* Perioperative Nursing Note - Usman Ulrich RN - 06/29/2023 10:40 AM EDT POST ENDOSCOPY PROCEDURE TRANSFER REPORT Procedure completed: EGD Findings: WDL Specimens obtained: None Medications administered: 200mg Propofol per RESEARCH PROGRAM ASSISTANT Additional Info: Adult diet regular; 3 carb choices (45gm/meal); see Dr Sibley' orders For additional Questions please call Endoscopy at [phone]. Thank You! [place] [id number] Note* Perioperative Nursing Note - Usman Ulrich RN - 06/29/2023 10:[address] Sibley in room talking to patient [id number] Note* Perioperative Nursing Note - Usman Ulrich RN - 06/29/2023 10:[address] Sibley in room talking to patient [place] [id number] Note* Addendum Note - JEREMY Naranjo CRNA - 06/29/2023 10:21 AM EDT Addendum created 06/29/23 1021 by JEREMY Naranjo CRNA Attestation recorded in Intraprocedure, Intraprocedure Attestations filed [place] [id number] Miscellaneous Notes* Addendum Note - JEREMY Naranjo CRNA - 06/29/2023 10:21 AM EDT Addendum created 06/29/23 1021 by JEREMY Naranjo CRNA Attestation recorded in Intraprocedure, Intraprocedure Attestations filed * Anesthesia Discharge Note - JEREMY Naranjo CRNA - 06/29/2023 10:20 AM EDT Patient: Maria Luisa Jacinto Procedure Summary Date: 06/29/23 Room / Location: [place] [address] / [facility] Gastroenterology Anesthesia Start: 953 Anesthesia Stop: [...] criteria has been met. [id number] Note* Anesthesia Discharge Note - JEREMY Naranjo CRNA - 06/29/2023 10:20 AM EDT Patient: Maria Luisa Jacinto Procedure Summary Date: 06/29/23 Room / Location: [place] [address] / [facility] Gastroenterology Anesthesia Start: 953 Anesthesia Stop: [...] once all PACU criteria has been met. [facility] [id number] Anesthesiology Postoperative evaluation and management note* Anesthesia Postprocedure Evaluation - JEREMY Naranjo CRNA - 06/29/2023 10:20 AM EDT Patient: Maria Luisa Jacinto Procedure Summary Date: 06/29/23 Room / Location: [place] [address] / [facility] Gastroenterology Anesthesia Start: 953 Anesthesia Stop: 1019 [...] opportunity for questions and acknowledgement of understanding. [facility]08-22-2023 Surgical operation note* Anesthesia Postprocedure Evaluation - JEREMY Naranjo CRNA - 06/29/2023 10:20 AM EDT Patient: Maria Luisa Jacinto Procedure Summary Date: 06/29/23 Room / Location: [address] Gastroenterology Anesthesia Start: 953 Anesthesia Stop: [...] 0900 Procedure: EGD DIAGNOSTIC Location: [place] [address] / [facility] Gastroenterology Providers: Sergio Sibley DO Relevant Problems Cardio (+) Hyperlipidemia (+) Hypertension (+) 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 ([facility]) Endo (+) Type 2 diabetes mellitus with hyperglycemia, with long-term current use of insulin ([facility]) ([facility]) (+) Uncontrolled type 2 diabetes mellitus with complication Other (+) Chronic osteomyelitis ([facility]) ([facility]) (+) Endometrial carcinoma ([facility]) Past Medical History: Past Medical History: No date: Abnormal uterine bleeding (AUB) Comment: SCHEDULED FOR THE SURGERY ON 05/16/2019 No date: Above knee amputation of right lower extremity ([facility]) No date: Acquired absence of other toe(s), unspecified side ([facility]) No date: Anxiety disorder No date: Bipolar 1 disorder ([facility]) No date: Blood circulation, collateral No date: Cellulitis Comment: chronic L lower leg 12/08/2021: COVID No date: Depression No date: Diabetes mellitus ([facility]) Comment: Type II, on insulin No date: Disease of blood and blood forming organ 11/25/2020: Endometrial carcinoma ([facility]) No date: Endometrial hyperplasia No date: Foot ulcer ([facility]) No date: Hx of blood clots Comment: RLE prior to amputation No date: Hyperlipidemia No date: Hypertension No date: Lymphedema No date: 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, RLE No date: Morbidly obese ([facility]) No date: Muscle weakness No date: Osteomyelitis ([facility]) 2019: Osteomyelitis ([facility]) Comment: RLE No date: Other lack of coordination No date: Other specified soft tissue disorders No date: Other symbolic dysfunctions No date: Schizophrenia ([facility]) No date: Sleep apnea Comment: no CPAP [...] deviation no longer present documented in this [facility]08-22-2023 Nurse Note* Usman Ulrich RN - 06/29/2023 10:18 AM EDT No specimens [facility], [id number] Nurse Note* Usman Ulrich RN - 06/29/2023 10:18 AM EDT No specimens documented in this [facility]08-22-2023 Anesthesiology Preoperative evaluation and management note* Anesthesia Preprocedure Evaluation - Ezio Lr APRN - RESEARCH PROGRAM ASSISTANT - 06/29/2023 9:41 AM EDT Patient: Maria Luisa Jacinto Procedure Information Date/Time: 06/29/23 0900 Procedure: EGD DIAGNOSTIC Location: [place] [address] / [facility] Gastroenterology Providers: Sergio Sibley, DO Relevant Problems Cardio (+) Hyperlipidemia (+) Hypertension (+) 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 (HCC) Endo (+) Type 2 diabetes mellitus with hyperglycemia, with long-term current use of insulin (CMS/HCC) ([facility]) (+) Uncontrolled type 2 diabetes mellitus with complication Other (+) Chronic osteomyelitis ([facility]/HCC) ([facility]) (+) Endometrial carcinoma ([facility]) Past Medical History: Past Medical History: No date: Abnormal uterine bleeding (AUB) Comment: SCHEDULED FOR THE SURGERY ON 05/16/2019 No date: Above knee amputation of right lower extremity ([facility]) No date: Acquired absence of other toe(s), unspecified side ([facility]) No date: Anxiety disorder No date: Bipolar 1 disorder ([facility]) No date: Blood circulation, collateral No date: Cellulitis Comment: chronic L lower leg 12/08/2021: COVID No date: Depression No date: Diabetes mellitus ([facility]) Comment: Type II, on insulin No date: Disease of blood and blood forming organ 11/25/2020: Endometrial carcinoma ([facility]) No date: Endometrial hyperplasia No date: Foot ulcer ([facility]) No date: Hx of blood clots Comment: RLE prior to amputation No date: Hyperlipidemia No date: Hypertension No date: Lymphedema No date: 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, RLE No date: Morbidly obese ([facility]) No date: Muscle weakness No date: Osteomyelitis ([facility]) 2019: Osteomyelitis ([facility]) Comment: RLE No date: Other lack of coordination No date: Other specified soft tissue disorders No date: Other symbolic dysfunctions No date: Schizophrenia ([facility]) No date: Sleep apnea Comment: no CPAP [...] longer present [facility], [id number] Note* Op Note - Sergio Sibley DO - 06/29/2023 8:19 AM EDT [facility]: Will Jacinto Procedure Date: 06/29/2023 8:19 AM Gender: Female Date of : 1965 Age: 57 Admit Type: Inpatient Note Status: Finalized Endoscopist: Sergio Sibley DO, [id number] Procedure: Upper GI endoscopy Indications: Chest pain [...] immediate complications. Procedure Code(s): --- Professional --- 12659, Esophagogastroduodenoscopy, flexible, transoral; diagnostic, including collection of specimen(s) by brushing or washing, when performed (separate procedure) --- Technical --- 02614, Esophagogastroduodenoscopy, flexible, transoral; diagnostic, including collection of specimen(s) by brushing or washing, when performed (separate procedure) Diagnosis Code(s): --- Professional --- R07.89, Other chest pain R11.2, Nausea with vomiting, unspecified --- Technical --- R07.89, Other chest pain R11.2, Nausea with vomiting, unspecified CPT copyright 2021 [employer]. All rights reserved. The codes documented in this report are preliminary and upon braille coder review may be revised to meet current compliance requirements. Attending Participation: I personally performed the entire procedure. Sergio Sibley DO 06/29/2023 10:29:14 AM This report has been signed electronically. Number of Addenda: 0 Note Initiated On: 06/29/2023 8:19 AM T [facility], [id number] Note* Op Note - Sergio Sibley DO - 06/29/2023 8:19 AM EDT [facility] Name: Will Jacinto Procedure Date: 06/29/2023 8:19 AM Gender: Female Date of : 1965 Age: 57 Admit Type: Inpatient Note Status: Finalized Endoscopist: Sergio Sibley DO, [id number] Procedure: Upper GI endoscopy Indications: Chest pain [...] immediate complications. Procedure Code(s): --- Professional --- 10394, Esophagogastroduodenoscopy, flexible, transoral; diagnostic, including collection of specimen(s) by brushing or washing, when performed (separate procedure) --- Technical --- 17675, Esophagogastroduodenoscopy, flexible, transoral; diagnostic, including collection of specimen(s) by brushing or washing, when performed (separate procedure) Diagnosis Code(s): --- Professional --- R07.89, Other chest pain R11.2, Nausea with vomiting, unspecified --- Technical --- R07.89, Other chest pain R11.2, Nausea with vomiting, unspecified CPT copyright 2021 [employer]. All rights reserved. The codes documented in this report are preliminary and upon braille coder review may be revised to meet current compliance requirements. Attending Participation: I personally performed the entire procedure. Sergio Sibley DO 06/29/2023 10:29:14 AM This report has been signed electronically. Number of Addenda: 0 Note Initiated On: 06/29/2023 8:19 AM [facility] [id number] Consult note* Sergio Sibley DO - 06/28/2023 [...] (HCC) Anxiety disorder Bipolar 1 disorder ([facility]) Blood circulation, collateral Cellulitis chronic L lower leg COVID 12/08/2021 Depression Diabetes mellitus ([facility]) Type II, on insulin Disease of blood [...] before lunch/285 units before dinner Lactobacillus Acid-Pectin (Acidophilus/Nyack Pectin) tablet 1 tablet, Oral, 2 times [...] by Sergio Sibley DO 06/28/2023 11:59 AM [employer] Phone: 1(716) 285-465608-21-2023 Consult note* Sergio Sibley DO - 06/28/2023 [...] leg COVID 12/08/2021 Depression Diabetes mellitus ([facility]) Type II, on insulin Disease of blood [...] before lunch/285 units before dinner Lactobacillus Acid-Pectin (Acidophilus/Nyack Pectin) tablet 1 tablet, Oral, 2 times [...] : 1965 AGE: 57 y.o. [facility]: [facility] Admission Date: 06/28/2023 Visit Date: 06/28/2023 Reason for Endocrine Consult: dm2 Provider/Team Requesting Consult: Dr. Hill PCP: Jared Guzman Outpt Physician'S Assistant: Dr. Jesus spear endo ASSESSMENT: DM [...] 10%-15% lower than serum/plasma values. (CLIA ID [id number]) 12/23/2021 07:28 AM 107 (H) 70 - 100 mg/dL Final Comment: Test performed by glucose meter. Results may be 10%-15% lower than serum/plasma values. (CLIA ID [id number]) 11/28/2020 04:54 PM 111 (H) 70 - 100 mg/dL Final Comment: Test performed by glucose meter. Results may be 10%-15% lower than serum/plasma values. (CLIA ID [id number]) 11/28/2020 10:18 AM 166 (H) 70 - 100 mg/dL Final Comment: Test performed by glucose meter. Results may be 10%-15% lower than serum/plasma values. (CLIA ID [id number]) 11/28/2020 07:57 AM 215 (H) 70 - 100 mg/dL Final Comment: Test performed by glucose meter. Results may be 10%-15% lower than serum/plasma values. (CLIA ID [id number]) 11/27/2020 09:08 PM 91 70 - 100 mg/dL Final Comment: Test performed by glucose meter. Results may be 10%-15% lower than serum/plasma values. (CLIA ID [id number]) Review of Systems Constitutional: Positive for appetite [...] before lunch/285 units before dinner Lactobacillus Acid-Pectin (Acidophilus/Nyack Pectin) tablet 1 tablet, Oral, 2 times [...] found for: CHOLHDLRATIO No results found for: [id number] Lab Results Component Value Date TSH 2.356 11/26/2020 Radiology reportsas per the Radiologist Radiology: ECG 12 lead Result Date: 06/28/2023 Sinus tachycardia Nonspecific IVCD with LAD Left ventricular hypertrophy Minimal ST elevation, anterolateral leads Electronically Signed On 06-28-2023 5:20:13 [address]T [address] Rosaura Must[address] CT chest angiogram w and/or wo IV contrast Result Date: 06/28/2023 [facility] 1965 [id number] Exam Date/Time: 06/28/2023 03:49 Procedure: CT CHEST [...] 06/28/2023 Patient Name: WILL JACINTO : 1965 [facility]#: [id number] Exam Date/Time: 06/28/2023 03:08 Procedure: XR CHEST [...] AM EDTAssociated Order(s): IP CONSULT TO CARDIOLOGY [facility] CARDIOLOGY CONSULTATION Patient Name: Will Jacinto [...] Above knee amputation of right lowerextremity ([facility]), Acquired absence of other toe(s), unspecified side ([facility]), Anxiety disorder, Bipolar 1 disorder ([facility]), Blood circulation, collateral, Cellulitis, COVID (12/08/2021), Depression, Diabetes mellitus ([facility]), Disease of blood and blood forming organ, Endometrial carcinoma ([facility]) (11/25/2020), Endometrial hyperplasia, Foot ulcer ([facility]), blood clots, Hyperlipidemia, Hypertension, Lymphedema,MDRO (multiple drug resistant organisms) resistance, Morbidly obese ([facility]), Muscle weakness, Osteomyelitis ([facility]), Osteomyelitis ([facility]) (2018), Other lack of coordination, Other specified soft tissue disorders, Other symbolic dysfunctions, Schizophrenia ([facility]), Sleep apnea, and Venous insufficiency. He has no past medical history of Arthritis, Asthma, CAD (coronary artery disease), Cerebral arteryocclusion with cerebral infarction ([facility]), CHF (congestive heart failure) ([facility]) ([facility]), Chronic kidney disease, COPD (chronic obstructive pulmonary disease) ([facility]), GERD (gastroesophageal reflux disease), Hemodialysis patient ([facility]) ([facility]), History of blood transfusion, Liver disease, Movement disorder, Neuromuscular disorder ([facility]), Other disorders of kidney and ureter in diseases classified elsewhere, Pneumonia, Seizures ([facility]), or Thyroid disease. SurgicalHistory: has a past surgical history that includes [place] tooth extraction; Dilation and curettage of uterus(05/18/2019); [...] units before dinner Historical Provider, Lactobacillus Acid-Pectin (Acidophilus/Nyack Pectin) tablet Take 1 tablet by mouth [...] acute infiltrate or effusion. documented in this [facility]08-21-2023 Consult note* Geronimo Lee MD - 06/28/2023 10:45 AM EDTAssociated Order(s): IP CONSULT TO ENDOCRINOLOGY Department of Internal Medicine Division of Endocrinology, Diabetes, & Metabolism Endocrinology Note Patient Name: Will Jacinto : 1965 AGE: 57 y.o. [facility] Admission Date: 06/28/2023 Visit Date: 06/28/2023 Reason for Endocrine Consult: dm2 Provider/Team Requesting Consult: Dr. Hill PCP: Jared Guzman Outpt Physician'S Assistant: Dr. Lee [facility] endo ASSESSMENT: DM 2 poor control Cheat [...] 10%-15% lower than serum/plasma values. (CLIA ID [id number]) 12/23/2021 07:28 AM 107 (H) 70 - 100 mg/dL Final Comment: Test performed by glucose meter. Results may be 10%-15% lower than serum/plasma values. (CLIA ID [id number]) 11/28/2020 04:54 PM 111 (H) 70 - 100 mg/dL Final Comment: Test performed by glucose meter. Results may be 10%-15% lower than serum/plasma values. (CLIA ID [id number]) 11/28/2020 10:18 AM 166 (H) 70 - 100 mg/dL Final Comment: Test performed by glucose meter. Results may be 10%-15% lower than serum/plasma values. (CLIA ID [id number]) 11/28/2020 07:57 AM 215 (H) 70 - 100 mg/dL Final Comment: Test performed by glucose meter. Results may be 10%-15% lower than serum/plasma values. (CLIA ID [id number]) 11/27/2020 09:08 PM 91 70 - 100 mg/dL Final Comment: Test performed by glucose meter. Results may be 10%-15% lower than serum/plasma values. (CLIA ID [id number]) Review of Systems Constitutional: Positive for appetite [...] before lunch/285 units before dinner Lactobacillus Acid-Pectin (Acidophilus/Nyack Pectin) tablet 1 tablet, Oral, 2 times [...] found for: CHOLHDLRATIO No results found for: [id number] Lab Results Component Value Date TSH 2.356 11/26/2020 Radiology reportsas per the Radiologist Radiology: ECG 12 lead Result Date: 06/28/2023 Sinus tachycardia Nonspecific IVCD with LAD Left ventricular hypertrophy Minimal ST elevation, anterolateral leads Electronically Signed On 06-28-2023 5:20:13 EDT by Rosaura Mustafa CT chest angiogram w and/or wo IV contrast Result Date: 06/28/2023 Patient Name: WILL JACINTO : 1965 [facility]#: [id number] Exam Date/Time: 06/28/2023 03:49 Procedure: CT CHEST [...] (HCC) Anxiety disorder Bipolar 1 disorder ([facility]) Blood circulation, collateral Cellulitis chronic L lower leg COVID 12/08/2021 Depression Diabetes mellitus ([facility]) Type II, on insulin Disease of blood and blood forming organ Endometrial carcinoma ([facility]) 11/25/2020 Endometrial hyperplasia Foot ulcer ([facility]) Hx of blood clots RLE prior to amputation Hyperlipidemia Hypertension Lymphedema MDRO (multiple drug resistant organisms) resistance hx CRE and MRSA in 2018, RLE Morbidly obese ([facility]) Muscle weakness Osteomyelitis ([facility]) Osteomyelitis ([facility]) 2019 RLE Other lack of coordination Other specified soft tissue disorders Other symbolic dysfunctions Schizophrenia ([facility]) Sleep apnea no CPAP Venous insufficiency Past [...] state/prognosis on the date of this note. [employer] Phone: 1(459) 698-529208-21-2023 Note* Care Coordination - Herber Armando RN - 06/28/2023 10:12 AM EDT Care Managment Initial Assessment Date: 06/28/2023 Patient Name: Will Jacinto : 1965 Patient Information Source of Information: Patient Cognition/Language: WFL - Within Functional Limits Permission given to speak with patient ambulatory service representative/caregiver as indicated: Yes (Jovana Quesada ([facility]) [phone]) Confirmation of Payer with patient/family: Yes Payer Name: [facility] Z[employer]ply [place]: No Confirmation of Primary Care Physician: Confirmed PCP Name: Jared Guzman Seen in last 2 years?: Yes Primary Caregiver: Other (Comment) ([facility] staff) If assistance needed, confirmed caregiver ready, willing and able to care for patient at discharge:Yes Confirmed with: Patient states staff from [facility] Living Arrangements Current Residence: ([facility]) Number of Floors Number of Entry Steps: Bed/Bath Levels: Facility: [facility] Facility Name: [facility] Plan to Return: Yes Lives with: Support Systems: Family members Activities of Daily Living Ambulation: Total Care (wheelchair) Bathing/Dressing: Total Care Elimination/Continence/Toileting: Assistance Feeding: Independent Who Assists with Activities of Daily Living: Staff from [facility] Instrumental Activities of Daily Living Prescription Coverage: Yes Pharmacy Used: Pharmacy through [facility] Medication Management: Assistance Type: Dose packaging system Who assists with medication securing and setup?: [facility] staff Transportation/Shopping: Assistance Provider Transportation Mode: Needs Assistance with Transportation at Discharge: No Meal Preparation: Assistance Provider Meal Prep Assistance Provider Name: [facility] staff Laundry/Cleaning: Assistance Provider Laundry/Cleaning Assistance Provider Name: [facility] staff Finances/Bill Paying: Assistance Provider Finances/Bill Payer Assistance Provider Name: Family Communication: Independent Types of Care Services/Equipment Utilized Care Services: Dialysis Type: NA Durable Medical Equipment: Wheelchair (standard or power) Patient's Goal/Discharge Plan Patient expects to be discharged to: Back to [facility]. Discharge Planning Actions: Continue to follow [...] R bka, is wheelchair bound. Lives at [facility] and plans to return. Cardiology consulted. Task sent to [facility] return referral to [facility]. TCC will continue to follow. Herber Armando RN [id number] Note* Care Coordination - Herber Armando RN - 06/28/2023 10:12 AM EDT Care Managment Initial Assessment Date: 06/28/2023 Patient Name: Will Jacinto : 1965 Patient Information Source of Information: Patient Cognition/Language: WFL - Within Functional Limits Permission given to speak with patient ambulatory service representative/caregiver as indicated: Yes (Jovana Quesada ([facility]) [phone]) Confirmation of Payer with patient/family: Yes Payer Name: [facility] Dual [place]: No Confirmation of Primary Care Physician: Confirmed PCP Name: Jared Guzman Seen in last 2 years?: Yes Primary Caregiver: Other (Comment) ([facility] staff) If assistance needed, confirmed caregiver ready, willing and able to care for patient at discharge:Yes Confirmed with: Patient states staff from [facility] Living Arrangements Current Residence: ([facility]) Number of Floors Number of Entry Steps: Bed/Bath Levels: Facility: [facility]way[facility] Care Facility Name: [facility] Plan to Return: Yes Lives with: Support Systems: Family members Activities of Daily Living Ambulation: Total Care (wheelchair) Bathing/Dressing: Total Care Elimination/Continence/Toileting: Assistance Feeding: Independent Who Assists with Activities of Daily Living: Staff from [facility] Instrumental Activities of Daily Living Prescription Coverage: Yes Pharmacy Used: Pharmacy through [facility] Medication Management: Assistance Type: Dose packaging system Who assists with medication securing and setup?: ECF staff Transportation/Shopping: Assistance Provider Transportation Mode: Needs Assistance with Transportation at Discharge: No Meal Preparation: Assistance Provider Meal Prep Assistance Provider Name: [facility] staff Laundry/Cleaning: Assistance Provider Laundry/Cleaning Assistance Provider Name: [facility] staff Finances/Bill Paying: Assistance Provider Finances/Bill Payer Assistance Provider Name: Family Communication: Independent Types of Care Services/Equipment Utilized Care Services: Dialysis Type: NA Durable Medical Equipment: Wheelchair (standard or power) Patient's Goal/Discharge Plan Patient expects to be discharged to: Back to [facility]. Discharge Planning Actions: Continue to follow [...] R bka, is wheelchair bound. Lives at [facility] and plans to return. Cardiology consulted. Task sent to [facility] via Careport to place return referral to [facility]. TCC will continue to follow. Herber Armando RN [facility], [id number] Consult note* Supriya Baeza MD - 06/28/2023 9:16 AM EDT Associated Order(s): IP CONSULT TO CARDIOLOGY [facility] CARDIOLOGY CONSULTATION Patient Name: Will Jacinto [...] Above knee amputation of right lowerextremity ([facility]), Acquired absence of other toe(s), unspecified side ([facility]), Anxiety disorder, Bipolar 1 disorder ([facility]), Blood circulation, collateral, Cellulitis, COVID (12/08/2021), Depression, Diabetes mellitus ([facility]), Disease of blood and blood forming organ, Endometrial carcinoma ([facility]) (11/25/2020), Endometrial hyperplasia, Foot ulcer ([facility]), blood clots, Hyperlipidemia, Hypertension, Lymphedema,MDRO (multiple drug resistant organisms) resistance, Morbidly obese ([facility]), Muscle weakness, Osteomyelitis ([facility]), Osteomyelitis (HCC) (2018), Other lack of coordination, Other specified soft tissue disorders, Other symbolic dysfunctions, Schizophrenia ([facility]), Sleep apnea, and Venous insufficiency. He has no past medical history of Arthritis, Asthma, CAD (coronary artery disease), Cerebral arteryocclusion with cerebral infarction ([facility]), CHF (congestive heart failure) ([facility]) ([facility]), Chronic kidney disease, COPD (chronic obstructive pulmonary disease) ([facility]), GERD (gastroesophageal reflux disease), Hemodialysis patient ([facility]) ([facility]), History of blood transfusion, Liver disease, Movement disorder, Neuromuscular disorder ([facility]), Other disorders of kidney and ureter in diseases classified elsewhere, Pneumonia, Seizures ([facility]), or Thyroid disease. SurgicalHistory: has a past surgical history that includes [place] tooth extraction; Dilation and curettage of uterus(05/18/2019); [...] units before dinner Historical Provider, Lactobacillus Acid-Pectin (Acidophilus/Nyack Pectin) tablet Take 1 tablet by mouth [...] lung volumes. No acute infiltrate or effusion. [employer] Phone: 1([phone]) 550-951108-21-2023 History and physical note* Nabil Hill, - [...] absence of other toe(s), unspecified side ([facility]) Anxiety disorder Bipolar 1 disorder ([facility]) Blood circulation, collateral Cellulitis chronic L lower leg COVID 12/08/2021 Depression Diabetes mellitus ([facility]) Type II, on insulin Disease of blood and blood forming organ Endometrial carcinoma ([facility]) 11/25/2020 Endometrial hyperplasia Foot ulcer ([facility]) Hx of blood clots RLE prior to amputation Hyperlipidemia Hypertension Lymphedema MDRO (multiple drug resistant organisms) resistance hx CRE and MRSA in 2018, RLE Morbidly obese ([facility]) Muscle weakness Osteomyelitis ([facility]) Osteomyelitis ([facility]) 2019 RLE Other lack of coordination Other specified soft tissue disorders Other symbolic dysfunctions Schizophrenia ([facility]) Sleep apnea no CPAP Venous insufficiency Past [...] before lunch/285 units before dinner Lactobacillus Acid-Pectin (Acidophilus/Nyack Pectin) tablet Take 1 tablet by mouth [...] 8:42 AM [facility], [id number] History and physical note* Nabil Hill DO [...] (HCC) Anxiety disorder Bipolar 1 disorder ([facility]) Blood circulation, collateral Cellulitis chronic L lower leg COVID 12/08/2021 Depression Diabetes mellitus ([facility]) Type II, on insulin Disease of blood and blood forming organ Endometrial carcinoma ([facility]) 11/25/2020 Endometrial hyperplasia Foot ulcer ([facility]) Hx of blood clots RLE prior to amputation Hyperlipidemia Hypertension Lymphedema MDRO (multiple drug resistant organisms) resistance hx CRE and MRSA in 2018, RLE Morbidly obese ([facility]) Muscle weakness Osteomyelitis (HCC) Osteomyelitis ([facility]) 2019 RLE Other lack of coordination Other specified soft tissue disorders Other symbolic dysfunctions Schizophrenia ([facility]) Sleep apnea no CPAP Venous insufficiency Past [...] before lunch/285 units before dinner Lactobacillus Acid-Pectin (Acidophilus/Nyack Pectin) tablet Take 1 tablet by mouth [...] Left leg cellulitis Diabetic foot infection ([facility]) S/P AKA (above knee amputation) unilateral, right ([facility]) Class 3 severe obesity due to excess calories with serious comorbidity and body mass index (BMI) of60.0 to 69.9 in adult ([facility]) Chest pain Chest pain Nausea and vomiting DM 2 Morbid obesity HPL HTN Plan Admit to tele Consult cardio Consult endo Consult gi Clears and ivf for now Serial trops NABIL HILL DO 06/28/23 8:42 AM documented in this [facility]08-21-2023 Note* Significant Event - Ramsey Mc MD - 06/28/2023 7:59 AM EDT [facility] but his primary care physician is covered by Dr. Hill. Dr. Hill will see and admit. Attending changed to Dr. Hill. [employer] Phone: 1([phone]) 937-681908-21-2023 Note* Significant Event - Ramsey Mc MD - 06/28/2023 7:59 AM EDT [facility] for admission but his primary care physician is covered by Dr. Hill. Dr. Hill will see and admit. Attending changed to Dr. Hill. [employer] Phone: 1([phone]) 882-774408-21-2023 NoteSuboptimal opacification of the pulmonary arteries. This [...] 06/28/2023 4:37 AM [facility] RADIOLOGY [id number] Emergency department Note* Dalila Mendes RN - 06/28/2023 2:14 AM EDT Bed: 33 Expected date: Expected time: Means of arrival: Comments: EMS Dalila Mendes RN 06/28/23 0214 [facility], [id number] Emergency department Note* Rosaura Mustafa DO - [...] Alcohol use: No Drug use: Never SCREENINGS [place] Coma Scale Best Eye Response: Spontaneous Best Verbal Response: Oriented Best Motor Response: Follows commands [place] Coma Scale Score: 15 HEART Score History: [...] Pt presents to ED via EMS from [facility]. Pt is experiencing chest pain that started before midnight. Pt has also been vomiting today. Pt denies hx of MA. * Dalila Mendes RN - 06/28/2023 2:14 AM EDT Bed: 33 Expected date: Expected time: Means of arrival: Comments: EMS Dalila Mendes RN 06/28/23 0214 documented in this [facility]08-21-2023 Emergency department Triage note* Melissa Sosa RN - 06/28/2023 2:14 AM EDT Pt presents to ED via EMS from [facility]. Pt is experiencing chest pain that started before midnight. Pt has also been vomiting today. Pt denies hx of MA. [facility], [id number] Physician Emergency department Note* Rosaura Mustafa DO [...] Medicine Provider Rosaura Mustafa DO 06/28/23 0523 [place] [id number] Telephone encounter Note* Telephone Encounter - Radha Busby MA - 06/23/2023 8:22 AM EDT [facility] and spoke with nurse minesh. I relayed the message below and she verbalized understanding. [id number] Miscellaneous Notes* Telephone Encounter - Radha Busby MA - 06/23/2023 8:22 AM EDT [facility] and spoke with nurse minesh. I relayed the message below and she verbalized understanding. * Telephone Encounter - Geronimo Lee MD - 06/22/2023 4:43 PM EDT Keep doses the same for now thank you * Telephone Encounter - Jackson Pratt - 06/22/2023 3:35 PM EDT Images from the original note were not included. Patient BGL documented in this encounterSOhio[facility] HospitalPbxhag10-75-4421 Telephone encounter Note* Telephone Encounter - Geronimo Lee MD - 06/22/2023 4:43 PM EDT Keep doses the same for now thank you [facility] [employer] Phone: [phone]) [phone] Telephone encounter Note* Telephone Encounter - Jackson Pratt - 06/22/2023 3:35 PM EDT Images from the original note were not included. Patient BGL [facility], [id number] Telephone encounter Note* Telephone Encounter - Idalmis Rodriguez MA - 05/18/2023 11:32 AM EDT Called patient and left message stating there is no changes at this time. [id number] Miscellaneous Notes* Telephone Encounter - Idalmis Rodriguez [...] not included. Patient BGL documented in this encounterSOhioHealth [facility] Methodist [id number] Telephone encounter Note* Telephone Encounter - Geronimo Lee MD - 05/17/2023 4:48 PM EDT Keep doses the same increased trulicity already [facility] [employer] [facility] Phone: [phone] Telephone encounter Note* Telephone Encounter - Jackson Pratt - 05/17/2023 3:35 PM EDT Images from the original note were not included. Patient BGL [facility], [id number] Note* Addendum Note - Radha Busby MA - 05/07/2023 10:05 AM EDTAddended by: RADHA BUSBY on: 05/07/2023 10:05 AM Modules accepted: Orders [facility], [id number] Miscellaneous Notes* Addendum Note - Radha Busby [...] not included. Patient BGL documented in this encounterSOhioHealth [facility] [id number] Telephone encounter Note* Telephone Encounter - aRdha Busby MA - 05/07/2023 10:04 AM EDT Called [facility] and spoke with nurse don. I relayed the message below and she verbalized understanding. Med req updated. [facility], [id number] Telephone encounter Note* Telephone Encounter - Geronimo Lee MD - 05/06/2023 11:19 AM EDT Please increase trulicity to 4.5 mg weekly thank you [facility] [employer] Work Phone: [phone] Miscellaneous Notes* Telephone Encounter - Geronimo Lee [...] not included. Patient BGL documented in this [facility]06-29-2023 Telephone encounter Note* Telephone Encounter - Radha Busby MA - 05/06/2023 10:18 AM EDT Patient is currently taking Humulin R u500 (285 units before breakfast/260 units before lunch/285 units before dinner) Trulicity 3mg weekly [facility], [id number] Telephone encounter Note* Telephone Encounter - Geronimo Lee MD - 05/05/2023 4:27 PM EDT Please confirm current insulin doses thank you [facility], [id number] Telephone encounter Note* Telephone Encounter - Jackson Pratt - 05/05/2023 3:27 PM EDT Images from the original note were not included. Patient BGL [facility], [id number] Hospital Discharge instructions* Discharge Instructions* Jocelyn Santos MD - 03/08/2023 3:59 PM EDT Return to the ED if you cannot tolerate fluids with the Reglan. * Attachments The following attachments cannot be sent through Care Everywhere. * Gastroparesis (Delayed Gastric Emptying) ([place]) documented in this [facility]05-01-2023 Emergency department Note* Joellen Palmer RN - 03/08/2023 12:50 PM EDT Bed: 18 Expected date: Expected time: Means of arrival: Comments: Physicians Joellen Palmer RN 03/08/23 1250 [facility], [id number] Emergency department Note* Karlos Osborn DO - 03/08/2023 12:50 PM EDT Emergency Department Encounter [facility] ED Patient: Will Jacinto : 1965 [...] of a CMP which was relatively unremarkable, mplxa-mh-tybt glucose was 167, CBC was relatively unremarkable. [...] Palmer RN 03/08/23 1250 documented in this [facility]05-01-2023 Physician Emergency department Note* Karlos Osborn DO - 03/08/2023 12:50 PM EDT Emergency Department Encounter [facility] ED Patient: Will Jacinto : 1965 [...] of a CMP which was relatively unremarkable, gguci-mk-rdkl glucose was 167, CBC was relatively unremarkable. [...] [employer] Karlos Osborn DO 03/08/23 1623 [employer] Phone: [phone]) [phone] Telephone encounter Note* Telephone Encounter - Radha Busby MA - 03/01/2023 9:01 AM EDT Patient received message. [id number] Miscellaneous Notes* Telephone Encounter - Radha Busby [...] not included. Patient BGL documented in this encounterSOhioHealth Pickering[facility] Methodist HospitalWwiitl42-68-7449 Telephone encounter Note* Telephone Encounter - Radha Busby MA - 02/26/2023 1:39 PM EDT Called patient and left message to contact office. [id number] Miscellaneous Notes* Telephone Encounter - Radha Busby [...] not included. Patient BGL documented in this encounterSOhioHealth Pickering[facility] HospitalQnzgyj68-61-6956 Telephone encounter Note* Telephone Encounter - Geronimo Lee MD - 02/26/2023 11:18 AM EDT Increase morning u500 insulin dose by 25 units please thank you [facility], [id number] Telephone encounter Note* Telephone Encounter - Jackson Pratt - 02/25/2023 3:35 PM EDT Images from the original note were not included. Patient BGL [place] [id number] History of Present illness Narrative* Geronimo eLe MD - 02/09/2023 9:20 AM EDT . [facility] [place] [address] [place] [address] Dept: [phone] Dept Visit type: Established patient Reason for Visit: Follow-up (DM2) Assessment and Plan 1. Type 2 diabetes mellitus with hyperglycemia, with long-term current use of insulin ([facility] ([facility]) 2. Mixed hyperlipidemia 3. Primary hypertension No [...] underthe skin 3 times daily. Lactobacillus Acid-Pectin (Acidophilus/Nyack Pectin) tablet Take 1 tablet by mouth [...] (HCC) Anxiety disorder Bipolar 1 disorder ([facility]) Blood circulation, collateral Cellulitis chronic L lower leg COVID 12/08/2021 Depression Diabetes mellitus ([facility]) Type II, on insulin Disease of blood and blood forming organ Endometrial carcinoma (HCC) 11/25/2020 Endometrial hyperplasia Foot ulcer ([facility]) Hx of blood clots RLE prior to amputation Hyperlipidemia Hypertension Lymphedema MDRO (multiple drug resistant organisms) resistance hx CRE and MRSA in 2018, RLE Morbidly obese ([facility]) Muscle weakness Osteomyelitis (HCC) Osteomyelitis (HCC) 2019 RLE Other lack of coordination Other specified soft tissue disorders Other symbolic dysfunctions Schizophrenia ([facility]) Sleep apnea no CPAP Venous insufficiency Social [...] 0.73 EGFR >60 mL/min >90.0 [facility] EGFR IF NONAFRICAN [place]OREAN >60 mL/min >90.0 GLUCOSE 70 - 100 mg/dL 119 (H) CALCIUM 8.4 - 10.4 mg/dL 9.4 (H): Data is abnormally high Latest Reference Range & Units 08/29/20 00:00 11/23/20 03:51 07/20/22 00:00 HEMOGLOBIN A1C 5.7 % 9.9 10.0 ! 10.1 ! (E) !: Data is abnormal (E): External lab result Imaging/Testing: Geronimo Lee MD documented in this [facility]01-21-2021 NoteHospitalist Discharge Summary Will Jacinto : [...] transgender male, biologically female, presented from his halfway after abdominal pain, out of control glucose readings and reported mental status change. However, EMS in the hospital reported that he was alert and oriented x3, however, he says that recently he has had increasing abdominal distention and distress and he noticed that his glucoses have been harder and harder to control. Pt was admitted to [facility]. Pt had dysfunctinal uterine bleeding and transferred to [facility] for [employer] eval. Also had ab pain and found to have ileus. Seen by GI and recommended reglan. Pt had BMs. abd pain better. Advance diet to GI soft Seen by [employer] and had hysteroscopy with biopsy done KUB [...] 08/23/2020 No results found for: PHART, PO2ART, ACT8TGE No results for input(s): INR in the [...] Radiology ACCESSION EXAM DATE/TIME PROCEDURE ORDERING PROVIDER [id number] 11/27/2020 08:28 EST CR Abdomen AP MD MARTIN KHALED CPT code 35808 Reason For Exam (CR Abdomen AP) ileus [...] content not included)...[facility] SystemEvaluation noteNo assessment information availableWMount Carmel Health System Work Phone: Evaluation note* Diagnosis Dental caries- Primary Unspecified dental caries [facility] Diagnosis Type 2 diabetes mellitus with hyperglycemia, with long-term current use of insulin ([facility] ([facility])- Primary Mixed hyperlipidemia Primary hypertension Unspecified essential hypertension [facility] Diagnosis Abdominal pain, generalized- Primary Gastroparesis documented in this encounter [facility]Evaluchristianacare note* Diagnosis Chest pain, unspecified type Chest pain, unspecified type documented in this encounter [facility] IncEvaluchristianac[facility] note* Diagnosis Pyelonephritis- Primary Unspecified pyelonephritis Upper abdominal pain Nausea Nausea alone [facility]* Diagnosis Upper abdominal pain- Primary Upper abdominal pain Hypoglycemia Hypoglycemia, unspecified Abdominal pain Abdominal pain, unspecified site documented in this encounter [facility]Eval[facility] note* Diagnosis Hypoglycemia due to insulin- Primary Hypoglycemia Hypoglycemia, unspecified Hypothermia, initial encounter Altered mental status, unspecified altered mental status type 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 Hypothermia, not associated with low environmental temperature Diabetic gastroparesis associated with type 2 diabetes mellitus ([facility] ([facility]) Type II or unspecified type diabetes mellitus with neurological manifestations, not stated as uncontrolled Type 2 diabetes mellitus with hyperglycemia, with long-term current use of insulin ([facility]) Class 3 severe obesity due to excess calories with serious comorbidity and body mass index (BMI) of 60.0 to 69.9 in adult ([facility]) Acinetobacter lwoffi infection Infection due to other gram-negative organisms in conditions classified elsewhere and of unspecified site Bacteremia due to Gram-negative bacteria Sepsis without acute organ dysfunction ([facility]) documented in this encounter [facility]Eval[facility] note* Diagnosis Type 2 diabetes mellitus with hyperglycemia, with long-term current use of insulin ([facility])- Primary Mixed hyperlipidemia Primary hypertension Unspecified essential hypertension documented in this encounter [facility]* Diagnosis Nausea vomiting and diarrhea- Primary Dehydration documented in this encounter [facility]* Diagnosis Nausea with vomiting, unspecified documented in this encounter [facility]* Diagnosis Nausea and vomiting, unspecified vomiting type- Primary documented in this encounter [facility]* Diagnosis Nausea and vomiting, unspecified vomiting type- Primary Cystitis Unspecified cystitis documented in this encounter [facility]Evaluation note* Diagnosis Hypoglycemia- Primary Hypoglycemia, unspecified documented in this encounter [facility]Evaluation note* Diagnosis Nausea with vomiting, unspecified- Primary Nausea with vomiting, unspecified documented in this encounter [facility] HealthEvaluation note* Diagnosis Lung nodule- Primary Other diseases of lung, not elsewhere classified JOHN (obstructive sleep apnea) Obstructive sleep apnea (adult) (pediatric) Morbid obesity with BMI of 45.0-49.9, adult ([facility]) documented in this encounter [facility] note* Diagnosis Solitary pulmonary nodule- Primary documented in this encounter [facility]* Diagnosis Acute cholecystitis- Primary Acute cholecystitis documented in this encounter [facility] note* Diagnosis Hypoglycemic episode in patient with diabetes mellitus (HCC)- Primary documented in this encounter [facility]* Diagnosis Cholecystitis- Primary Cholecystitis, unspecified documented in this encounter [facility]* Diagnosis History of cholecystitis- Primary [facility] [facility] Diagnosis Cholecystitis- Primary Cholecystitis, unspecified documented in this encounter [facility] Diagnosis Cholecystitis- Primary Cholecystitis, unspecified Morbid obesity ([facility]) Morbid obesity Class 3 severe obesity with serious comorbidity and body mass index (BMI) of 50.0 to 59.9 in adult, unspecified obesity type (HCC) documented in this encounter [facility] note* Diagnosis Fecal occult blood test positive- Primary History of anemia Personal history of diseases of blood and blood-forming organs Calculus of gallbladder without cholecystitis without obstruction BMI 50.0-59.9, adult ([facility]) [facility]* Diagnosis Type 2 diabetes mellitus with hyperglycemia, with long-term current use of insulin ([facility])- Primary Type 2 diabetes mellitus with diabetic autonomic neuropathy, with long-term current use of insulin ([facility]) Microalbuminuria Proteinuria Essential hypertension Unspecified essential hypertension Mixed hyperlipidemia Class 3 severe obesity due to excess calories with serious comorbidity and body mass index (BMI) of 45.0 to 49.9 in adult ([facility]) Other fecal abnormalities Personal history of diseases of the blood and blood-forming organs and certain disorders involving the immune mechanism Calculus of gallbladder without cholecystitis without obstruction Body mass index (BMI) 50.0-59.9, adult ([facility]) documented in this encounter [facility] note* Diagnosis PAD (peripheral artery disease) ([facility])- Primary Unspecified peripheral vascular disease Hx of AKA (above knee amputation), right ([facility]) Lymphedema of left leg Morbid obesity ([facility]) Morbid obesity Other fecal abnormalities Personal history of diseases of the blood and blood-forming organs and certain disorders involving the immune mechanism Calculus of gallbladder without cholecystitis without obstruction Body mass index (BMI) 50.0-59.9, adult ([facility]) documented in this encounter [facility] note* Diagnosis PAD (peripheral artery disease) ([facility]) Unspecified peripheral vascular disease Other fecal abnormalities Personal history of diseases of the blood and blood-forming organs and certain disorders involving the immune mechanism Calculus of gallbladder without cholecystitis without obstruction Body mass index (BMI) 50.0-59.9, adult ([facility]) documented in this encounter [facility] note* Diagnosis Type 2 diabetes mellitus with hyperglycemia, with long-term current use of insulin ([facility])- Primary Type 2 diabetes mellitus with diabetic autonomic neuropathy, with long-term current use of insulin ([facility]) Hypertension associated with type 2 diabetes mellitus ([facility]) Mixed diabetic hyperlipidemia associated with type 2 diabetes mellitus ([facility]) Class 3 severe obesity due to excess calories with serious comorbidity and body mass index (BMI) of 45.0 to 49.9 in adult Microalbuminuria Proteinuria Other fecal abnormalities Personal history of diseases of the blood and blood-forming organs and certain disorders involving the immune mechanism Calculus of gallbladder without cholecystitis without obstruction Body mass index (BMI) 50.0-59.9, adult ([facility]) documented in this encounter [facility] note* Diagnosis Acute nonintractable headache, unspecified headache type- Primary Nausea Nausea alone Acute cystitis without hematuria Hyperglycemia Other abnormal glucose documented in this encounter [facility] note* Diagnosis Type 2 diabetes mellitus with hyperglycemia, with long-term current use of insulin ([facility])- Primary Insulin resistance Other abnormal glucose Type 2 diabetes mellitus with peripheral neuropathy ([facility]) Type 2 diabetes mellitus with albuminuria ([facility]) ([facility]) (HCC) Hypertension associated with type 2 diabetes mellitus ([facility]) Type 2 diabetes mellitus with hyperlipidemia ([facility]) ([facility]) documented in this encounter [facility] Discharge instructions* Attachments The following attachments cannot be sent through Care Everywhere. * Kidney Infection Discharge Instructions ([place]) documented in this [facility] Discharge instructions* Attachments The following attachments cannot be sent through Care Everywhere. * Acute Cystitis Discharge Instructions ([place]) * Nausea and Vomiting, Adult ED ([place]) documented in this [facility] Discharge instructions* Attachments The following attachments cannot be sent through Care Everywhere. * Upper GI Endoscopy Discharge Instructions ([place]) documented in this [facility] for referral (narrative)No reason for referral information [facility]WM[facility] Work Phone: Reason for visit Narrative* Imaging (Routine) - Closed Specialty Diagnoses / Procedures [facility] To Contact Cardiology Diagnoses PAD (peripheral artery disease) ([facility]) Procedures Vascular US lower extremity arterial PVR Alejandro Mandel, JEREMY - PROSTHODONTIST/EDUCATOR [address] [facility] [address] [place] [id number] Phone: tel: fax: Referral ID Status Reason Start Date Expiration Date Visits Re quested Visits Authorized [id number] Closed 02/01/2025 02/01/2026 1 1 [facility] for visit Narrative* Auth/Cert (Routine) Specialty Diagnoses / Procedures Referred By [facility] Referred To Contact Diagnoses Other fecal abnormalities Personal history of diseases of the blood and blood-forming organs and certain disorders involving the immune mechanism Calculus of gallbladder without cholecystitis without obstruction Body mass index (BMI) 50.0-59.9, adult (HCC) Procedures HI COLONOSCOPY FLX DX W/COLLJ SPEC WHEN PFRMD HI ESOPHAGOGASTRODUODENOSCOPY TRANSORAL DIAGNOSTIC COLONOSCOPY ESOPHAGOGASTRODUODENOSCOPY, DIAGNOSTIC Farhad Chavez MD [address] [place] [address] Phone: tel: fax: [facility] End[facility] [address] [place] [address] Phone: tel: Referral ID Status Reason Start Date Expiration Date Visits Re quested Visits Authorized 1 1 [facility] Health Summary Purpose Family History No Family History Records FoundNo Family History Records FoundNo Family History Records FoundNo Family History Records FoundNo Family History Records FoundNo Family History Records FoundNo Family History Records FoundNo Family History Records FoundNo Family History Records Found Advance Directives No Advanced Directives Records FoundDocuments on File Type Date Recorded Patient Airline Captain Expl anation DNR (Do Not Resuscitate) 09/17/2020 Date Activated Date Inactivated Comments 12/31/2023 8:33 PM 01/11/2024 8:41 PM Date Activated Date Inactivated Comments 10/07/2023 4:58 PM 10/17/2023 2:13 AM Date Activated Date Inactivated Comments 08/17/2023 10:49 PM 08/19/2023 10:57 PM Date Activated Date Inactivated Comments 06/28/2023 8:48 AM 07/01/2023 4:24 PM Healthcare Agents on File Name Relationship Healthcare Agent [facility] Communication [facility] (A) [facility] Health Care Agent Documents on File Type Date Recorded Patient Airline Captain Expl anation Advance Directives and Living Will Power of Assistant Elementary Teacher Latest Code Status on File Code Status Date Activated Date Inactivated Comments Full Code 06/14/2019 6:51 PM 06/20/2019 9:23 PM Full Code 05/16/2019 6:59 PM 05/20/2019 11:51 PM Full Code 05/16/2019 8:10 AM 05/16/2019 9:40 AM Full Code 05/16/2019 6:16 AM 05/16/2019 8:09 AM Full Code 01/11/2019 10:40 PM 01/17/2019 5:31 PM Documents on File Type Date Recorded Patient Airline Captain Expl anation ACP-Advance Directive ACP-Power of Assistant Elementary Teacher Latest Code Status on File Code Status Date Activated Date Inactivated Comments Full Code 09/18/2020 1:15 AM Full Code 06/14/2019 6:51 PM 06/20/2019 9:23 PM Documents on File Type Date Recorded Patient Airline Captain Expl anation ACP-Advance Directive ACP-Power of Assistant Elementary Teacher DNR Documentation 10/01/2020 12:28 PM Latest Code [...] Documents on File Type Date Recorded Patient Airline Captain Expl anation DNR (Do Not Resuscitate) 09/17/2020 [...] Agent Relationshi p Communication Jovana Quesada (POA) [facility] Health Care Agent Documents on File Type Date Recorded Patient Airline Captain Expl anation DNR (Do Not Resuscitate) 10/24/2024 12:44 PM DNR (Do Not Resuscitate) 09/17/2020 Healthcare Agents on File Name Relationship Healthcare Agent Jchi p Communication Jovana Quesada (POA) [facility] Health Care Agent Documents on File Type Date Recorded Patient Airline Captain Expl anation DNR (Do Not Resuscitate) 2024 1:55 PM DNR (Do Not Resuscitate) 10/24/2024 12:44 PM DNR (Do Not Resuscitate) 09/17/2020 Documents on File Type Date Recorded Patient Airline Captain Expl anation DNR (Do Not Resuscitate) 2024 [...] Documents on File Type Date Recorded Patient Airline Captain Expl anation DNR (Do Not Resuscitate) 12/04/2024 [...] Documents on File Type Date Recorded Patient Airline Captain Expl anation DNR (Do Not Resuscitate) 12/04/2024 [...] Agent Relationshi p Communication Jovana Quesada (POA) [facility] Health Care Agent Healthcare Agents on File Name Relationship Healthcare Agent Relationshi p Communication Jovana Quesada (POA) [facility] Health Care Agent Discharge Instructions * Attachments The following attachments cannot be sent through Care Everywhere. * Post-op Infection ([place]) documented in this encounter* Instructions* Eva Awan RN - 01/02/2020 U500 Insulin: The physician managing your U500 insulin should give specific recommendations before your surgery. Please call the managing physician's office if you do not already have instructionsin regards to your insulin. Please bring your [facility] Information folder on the day of [...] sent through Care Everywhere. * Hysteroscopy: Pre-op ([place]) * levonorgestrel intrauterine system ([place]) documented in this encounter* Discharge Instr - [...] Hospital Unit/Room#: 268/2681 Discharging Unit Phone Number: [phone] Emergency Contact: Extended Emergency Contact Information Primary Emergency Contact: Apoorva Lubin [facility] Mobile Relation: Other Secondary Emergency Contact: [...] (BMI) of50.0 to 59.9 in adult ([facility]) E66.01, Z68.43 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 ([facility]) E11.51 Cellulitis and abscess of lower extremity L03.119, L02.419 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 Chronic acquired lymphedema I89.0 Left leg cellulitis L03.116 Class 3 severe obesity due to excess calories with serious comorbidity and body mass index (BMI) of60.0 to 69.9 in adult ([facility]) E66.01, Z68.44 Post-menopausal bleeding N95.0 Hyperglycemia R73.9 Diabetic foot infection ([facility]) E11.628, L08.9 S/P AKA (above knee amputation) unilateral, right ([facility]) Z89.611 Morbid obesity ([facility]) E66.01 Ileus ([facility]) K56.7 Isolation/Infection: Isolation Contact Patient Infection Status [...] Dependent Dressing Dependent Toileting Dependent Feeding Assisted Senior Technologist Assisted Med Delivery none Wound Care Documentation [...] Discharging to Facility/ Agency Name: [facility] Address: [address] [place] [address] Dialysis Facility (if applicable) Name: Address: Dialysis Schedule: Phone: Fax: Um Nurse/Restaurant Team Member signature: at11:40 AM EST PHYSICIAN SECTION Prognosis: Fair Condition at Discharge: Stable Rehab Potential (if transferring to Rehab): Fair Recommended Labs or Other Treatments After Discharge: none Physician Certification: I certify the above information and transfer of Will Jacinto is necessary for the continuing treatment of the diagnosis listed and that he requires [facility] for greater 30 days. Update Admission H&P: No change in H&P PHYSICIAN SIGNATURE: * Additional Instructions* Анна Villela MD - 09/30/2020 Please fax BG logs to Dr. Lee at [phone] in 2 weeks. documented in this encounter* [...] Agent's Name Healthcare Agent's Phone Number 11/22/20 2301 No, patient does not have an advance directive for healthcare treatment -- -- -- -- -- Admitting Physician: Art Stapleton MD PCP: Jared Guzman MD Discharging Nurse: [facility] Hospital Unit/Room#: 158/1581 Discharging Unit Emergency Contact: Extended Emergency Contact Information Primary Emergency Contact: Apoorva Lubin [facility] Mobile Relation: Other Secondary Emergency Contact: [...] with long-term current use of insulin ([facility]) E11.65, Z79.4 Class 3 severe obesity due to excess calories with serious comorbidity and body mass index (BMI) of50.0 to 59.9 in adult ([facility]) E66.01, Z68.43 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 ([facility]) E11.51 Cellulitis and abscess of lower extremity L03.119, L02.419 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 Chronic acquired lymphedema I89.0 Left leg cellulitis L03.116 Class 3 severe obesity due to excess calories with serious comorbidity and body mass index (BMI) of60.0 to 69.9 in adult ([facility]) E66.01, Z68.44 Post-menopausal bleeding N95.0 Hyperglycemia R73.9 Diabetic foot infection ([facility]) E11.628, L08.9 S/P AKA (above knee amputation) unilateral, right ([facility]) Z89.611 Morbid obesity ([facility]) E66.01 Ileus ([facility]) K56.7 Nausea and vomiting R11.2 Esophagitis K20.90 Hypertension I10 Diabetic hyperosmolar non-ketotic state ([facility]) E11.00 Isolation/Infection: Isolation Contact Patient Infection Status [...] Assisted Dressing Assisted Toileting Assisted Feeding Assisted Senior Technologist Assisted Med Delivery whole Wound Care Documentation [...] Discharging to Facility/ Agency Name: [facility] ([facility] [place]) Address: [place] [address] Dialysis Facility (if applicable) Name: Address: Dialysis Schedule: Phone: Fax: Um Nurse/Restaurant Team Member signature: PHYSICIAN SECTION Prognosis: Good Condition at Discharge: Stable Rehab Potential (if transferring to Rehab): Good Recommended Labs or Other Treatments After Discharge: Physician Certification: I certify the above information and transfer of Will Jacinto is necessary for the continuing treatment of the diagnosis listed and that he requires [facility] for less 30 days. Update Admission [...] MD Discharging Nurse: Nicolle Dischsue Hospital Unit/Room#: [id number] Discharging Unit Emergency Contact: Extended Emergency Contact Information Primary Emergency Contact: Apoorva Lubin [facility] Mobile Relation: Other Secondary Emergency Contact: [...] Diagnosis Code Cellulitis L03.90 Chronic osteomyelitis ([facility]) M86.60 Uncontrolled type 2 diabetes mellitus with complication ([facility]) E11.8, E11.65 Type 2 diabetes mellitus with hyperglycemia, with long-term current use of insulin ([facility]) E11.65, Z79.4 Class 3 severe obesity due to excess calories with serious comorbidity and body mass index (BMI) of50.0 to 59.9 in adult ([facility]) E66.01, Z68.43 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 ([facility]) E11.51 Cellulitis and abscess of lower extremity L03.119, L02.419 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 Chronic acquired lymphedema I89.0 Left leg cellulitis L03.116 Class 3 severe obesity due to excess calories with serious comorbidity and body mass index (BMI) of60.0 to 69.9 in adult ([facility]) E66.01, Z68.44 Post-menopausal bleeding N95.0 Hyperglycemia R73.9 Diabetic foot infection ([facility]) E11.628, L08.9 Isolation/Infection: Isolation Contact Patient Infection [...] (171.5 kg) Mental Status: {IP PT MENTAL STATUS:14846} IV Access: {[facility] IV ACCESS:[id number]} Nursing Mobility/ADLs: Walking Assisted Transfer Assisted Bathing Assisted Dressing Assisted Toileting Assisted Feeding Assisted Senior Technologist Independent Med Delivery whole Wound Care Documentation [...] (for information only, NOT a DME order): {EQUIPMENT:[id number]} Other Treatments: Patient's personal belongings (please select all that are sent with patient): None RN SIGNATURE: MANAGEMENT/SOCIAL WORK SECTION Inpatient Status Date: 06/14/19 Readmission Risk Assessment Score: Readmission Risk Risk of Unplanned Readmission: 28 Discharging to Facility/ Agency Name: [facility] Address:[place] [address] Dialysis Facility (if applicable) Name: Address: Dialysis Schedule: Phone: Fax: Um Nurse/Restaurant Team Member signature: {Esignature:[id number]} ICIAN SECTION Prognosis: Good Condition at Discharge: Stable Rehab Potential (if transferring to Rehab): Good Recommended Labs or Other Treatments After Discharge: Physician Certification: I certify the above information and transfer of Will Jacinto is necessary for the continuing treatment of the diagnosis listed and that he requires [facility] for greater 30 days. Update Admission H&P: No change in H&P PHYSICIAN SIGNATURE: * Additional Instructions* Jarek Katz MD - 06/16/2019 Mkxed-mwv-Wpqs Leg Amputation: What to Expect at Home Your Recovery An jjjif-pix-dwtv amputation is surgery to remove your leg above the knee. Your doctor removed the leg while keeping as much healthy bone, skin, blood vessel, and nerve tissue as possible. After an xanwh-mcq-vqfj leg amputation, you will probably have bandages, [...] your doctor if you can take an pyzl-uwy-odjtyjj medicine. If you think your pain medicine [...] Where can you learn more? Go to [email or web address] and sign in to your [employer] account. Enter K761 in the Search Health Information box to learn more about Imynw-zbr-Hfyw Leg Amputation: What to Expect at Home. If you do not have an account, please click on the "Sign Up Now" link. Current as of: July 28, 2018 Content Version: [id number] [employer]. Care instructions adapted under license by [employer]. If youhave questions about a medical condition or this instruction, always ask your healthcare professional. [employer] disclaims any warranty or liability for your [...] 1st attempt with 22 gauge needle at [facility]. Patient tolerated well, site benign. documented in this encounter* Valeria Calzada RN - 09/30/2020 6:43 PM EST Called report to Ninfa GUILLORY at [place]. truck shop supervisor is scheduled for 7:30PM Valeria Calzada [...] Consult: Joann PCP: Jared Guzman MD Outpt Physician'S Assistant: yes, JEROME Lee/Kedar ASSESSMENT: T2DM uncontrolled [...] standpoint: Yes Home Going Endocrine Rx Recommendations-- M478aer 160-110-150 units TID before meals Outpt Follow [...] units TID AC meals 08/28/20 Carito Thacker, FLEET ADMINISTRATIVE ASSISTANT - PROSTHODONTIST/EDUCATOR acetaminophen (TYLENOL) 325 MG tablet Take 650 [...] 09/30/2020 10:07 AM EST Physical Therapy Facility/Department: [facility] TELEMETRY Daily Treatment Note NAME: Will Jacinto : 1965 Date of Service: 09/30/2020 Chart review completed. Pt declined therapy this day. Pt stated that he wasn't felling up it and wanted to rest. This FIELD PARTY MANAGER encouraged pt to participate, pt still declined. I will re-attempt as schedule permits. Juwan Canales PTA * Valeria Calzada RN - 09/30/2020 9:39 AM EST 09/30/20 9:30 AM [phone] From: Valeria Calzada RE: WILL ISSAELVIA 1965 Location: [facility] RM: [id number] is NPO for a procedure today. BS is 257, he is supposed to get 145u of the U-500. Would you likeme to still give? or hold with NPO status? Thank you Callback Required: NO CALLBACK REQ 2 [facility] ROUTINE Read 9:36 AM 09/30/20 9:37 AM Can give half dose. I will order 75 units. Thanks Valeria Calazda * Jagdeep Grace MD - 09/30/2020 8:40 [...] (BMI) of50.0 to 59.9 in adult ([facility]) 09/27/2020 Yes Small vessel arterial disease due [...] (BMI) of50.0 to 59.9 in adult ([facility]) Resolved Problems: Ileus (HCC)). Plan: Start/continue incentive [...] PATIENT NAME: Will Jacinto DATE: 09/30/2020 PAGER: [phone] * Jagdeep Grace MD - 09/29/2020 1:00 PM EST Progress Note Date:09/29/2020 Room:[address] [place] [address] Patient Name:Will Jacinto Date of :1965 Age:54 [...] PATIENT NAME: Will Jacinto DATE: 09/29/2020 PAGER: [phone] * Deborah Jha OTA - 09/29/2020 12:33 PM EST Occupational Therapy Facility/Department: [facility] TELEMETRY Daily Treatment Note NAME: [...] The primary encounter diagnosis was Ileus ([facility]). Diagnoses of Nausea and vomiting, intractability of vomiting not specified, unspecified vomiting type and Generalized abdominalpain were also pertinent to this visit. has a past medical history of Abnormal uterine bleeding (AUB), Above knee amputation of right lowerextremity ([facility]), Bipolar 1 disorder ([facility]), Blood circulation, collateral, Cellulitis, Depression, Diabetes mellitus ([facility]), Disease of blood and blood forming organ, Endometrial hyperplasia, Hx of blood clots, Hyperlipidemia, Hypertension, Lymphedema, MDRO (multiple drug resistant organisms) resistance, Morbidly obese ([facility]), Osteomyelitis ([facility]), Osteomyelitis ([facility]), Schizophrenia ([facility]), Sleep apnea, and Venous insufficiency. has a past surgical history that includes Abscess Drainage (Right, 09/09/2018); [place] tooth extraction; Dilation and curettage of uterus [...] Treatment Minutes: 20 Minutes(TH) FLETCHER Lamar/Elijah * Nbail Hill DO - 09/29/2020 12:23 PM EST [...] Jacinto : 1965 AGE: 54 y.o. Room/Bed: [address] [place] [address] Admission Date: 09/17/2020 7:46 PM Consult Date: 09/18/20 Visit Date: 09/29/2020 Reason for Endocrine Consult: DM mgmt Provider/Team Requesting Consult: Joann PCP: Jared Guzman MD Outpt Physician'S Assistant: yes, [facility] Lee/Kedar ASSESSMENT: T2DM uncontrolled [...] 60 gram limit no juice w/ trays Physician'S Assistant On-Call: AGAPITO Preferred Method of Communication/Reaching: LendYour. The above physician should be paged w/ questions/concerns about items being managed by Endocrinology Team. If there are any questions or concerns related to the info in this progress note please page the oncall clinical practice consultant directly. On-Call information can be found in the [facility] Online Directory. We can also be reached by LendYour communication system. We appreciate the opportunity to participate in this pt's ongoing medical care. ANTICIPATED ENDOCRINE HOME GOING RECOMMENDATIONS: Optimized for Discharge from Endocrine standpoint: Yes Home Going Endocrine Rx Recommendations-- Current hosp [id number] insulin doses. Outpt Follow Up-- As scheduled. [...] units TID AC meals 08/28/20 Carito Thacker FLEET ADMINISTRATIVE ASSISTANT - PROSTHODONTIST/EDUCATOR acetaminophen (TYLENOL) 325 MG tablet Take 650 [...] Ordering Physician DO HILL LISA Accession Number [id number] CPT4 Codes 23801 () Reason For Exam ileus Report Clinical [...] w/ IV Contrast (IV Onl Ordering Physician [id number] SHEIKH Accession Number [id number] CPT4 Codes 98136 (CT Abdomen/Pelvis w/ IV Contrast (IV Onl), Q9967 (CT ISOVUE 370MG/ML&[id number]&ML&1) Reason For Exam abd pain/tenderness Report CT [...] with long-term current use of insulin ([facility]) 09/27/2020Yes Class 3 severe obesity due to excess calories with serious comorbidity and body mass index (BMI) of50.0 to 59.9 in adult ([facility]) 09/27/2020 Yes 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 ([facility]) 09/27/2020 Yes Chronic acquired lymphedema 09/27/2020 Yes [...] (BMI) of50.0 to 59.9 in adult ([facility]) Resolved Problem: Ileus (HCC)). Plan: Start/continue incentive [...] PATIENT NAME: Will Jacinto DATE: 09/28/2020 PAGER: [phone] * Chris Muniz MD - 09/28/2020 9:18 [...] kg/m Physical Exam Not indistress Lungs clear [id number] abodmen obese non tender CBC: Recent Labs [...] Consult: Joann PCP: Jared Guzman MD Outpt Physician'S Assistant: yes, JEROME Lee/Kedar ASSESSMENT: T2DM uncontrolled [...] 60 gram limit no juice w/ trays Physician'S Assistant On-Call: AGAPITO Preferred Method of Communication/Reaching: [employer] Home[employer]. The above physician should be paged w/ questions/concerns about items being managed by Endocrinology Team. If there are any questions or concerns related to the info in this progress note please page the oncall clinical practice consultant directly. On-Call information can be found in the [facility] Online Directory. We can also be reached by L[employer]Your communication system. We appreciate the opportunity to participate in this pt's ongoing medical care. ANTICIPATED ENDOCRINE HOME GOING RECOMMENDATIONS: Optimized for Discharge from Endocrine standpoint: Yes Home Going Endocrine Rx Recommendations-- Current hosp [id number] insulin doses. Outpt Follow Up-- As scheduled. [...] AC meals 08/28/20 Carito Thacker APRN - PROSTHODONTIST/EDUCATOR acetaminophen (TYLENOL) 325 MG tablet Take 650 [...] ointment Apply topically as needed. 01/17/19 Dom Beltarn MD FLUoxetine (PROZAC) 20 MG capsule Take [...] Ordering Physician DO HILL LISA Accession Number [id number] CPT4 Codes 66546 () Reason For Exam ileus Report Clinical [...] Onl Ordering Physician ART OWEN Accession Number [id number] CPT4 Codes 35221 (CT Abdomen/Pelvis w/ IV Contrast (IV Onl), Q9967 (CT ISOVUE 370MG/ML&[id number]&ML&1) Reason For Exam abd pain/tenderness Report CT [...] date of this note. * Lucia Michelle, FIELD PARTY MANAGER - 09/27/2020 3:13 PM EST Physical Therapy Facility/Department: [facility] Daily Treatment Note NAME: Will [...] history that includes Abscess Drainage (Right, 09/09/2018); [place] tooth extraction; Dilation and curettage of uterus [...] problems. * ART STAPLETON, MDProgress Note Date:09/27/2020 Room:[address] [place] [address] Patient Name:Will Jacinto Date of :1965 Age:54 [...] Consult: Joann PCP: Jared Guzman MD Outpt Physician'S Assistant: yes, JEROME Lee/Kedar ASSESSMENT: T2DM uncontrolled [...] Home Going Endocrine Rx Recommendations-- Current hosp V006kcr insulin doses Outpt Follow Up-- As scheduled [...] data in the 24 hours ending 09/27/20 9678 Diet: Dietary Nutrition Supplements: Low Calorie High [...] AC meals 08/28/20 Carito Thacker APRN - PROSTHODONTIST/EDUCATOR acetaminophen (TYLENOL) 325 MG tablet Take 650 [...] : GIB No Renal : CKD No PATIENT SERVICES SPECIALIST : CVA/TIA No Musculoskeletal system : DJD [...] Accumulation: 7 - Moderate to Severe Extremities Bean Snapper Strength: Not Performed Estimated Daily Nutrient Needs: Energy (kcal): 5378-3367; Weight Used for Energy Requirements: Adjusted(IBW) Protein [...] Usual Body Weight: 340 lb (154.2 kg)(01/02/20) [place] Body Weight: 130 lbs; % [place] Body Weight 263.8 % BMI: 55.4 Adjusted [...] Discharge Planning: Too soon to determine Contact: *[id number] * Chris Muniz MD - 09/26/2020 11:24 [...] : GIB No Renal : CKD No PATIENT SERVICES SPECIALIST : CVA/TIA No Musculoskeletal system : DJD [...] Consult: Joann PCP: Jared Guzman MD Outpt Physician'S Assistant: yes, JEROME Lee/Kedar ASSESSMENT: T2DM uncontrolled [...] Home Going Endocrine Rx Recommendations-- Current hosp [id number] insulin doses Outpt Follow Up-- As scheduled [...] units TID AC meals 08/28/20 Carito Thacker, FLEET ADMINISTRATIVE ASSISTANT - PROSTHODONTIST/EDUCATOR acetaminophen (TYLENOL) 325 MG tablet Take 650 [...] : GIB No Renal : CKD No PATIENT SERVICES SPECIALIST : CVA/TIA No Musculoskeletal system : DJD [...] Consult: Joann PCP: Jared Guzman MD Outpt Physician'S Assistant: yes, JEROME Lee/Kedar ASSESSMENT: T2DM uncontrolled [...] Home Going Endocrine Rx Recommendations-- Current hosp E079zac insulin doses Outpt Follow Up-- As scheduled [...] units TID AC meals 08/28/20 Carito Thacker, FLEET ADMINISTRATIVE ASSISTANT - PROSTHODONTIST/EDUCATOR acetaminophen (TYLENOL) 325 MG tablet Take 650 [...] problems. * ART STAPLETON, MDProgress Note Date:09/23/2020 Room:[address] [place] [address] Patient Name:Will Jacinto Date of :1965 Age:54 [...] Physician MD DAVID RICHARD H Accession Number [id number] CPT4 Codes 31962 () Reason For Exam ileus, improving Report [...] Physician MD DAVID RICHARD H Accession Number [id number] CPT4 Codes 44214 () Reason For Exam ileus Report ABDOMEN: [...] Accumulation: 7 - Moderate to Severe Extremities Bean Snapper Strength: Not Performed Estimated Daily Nutrient Needs: Energy (kcal): 3573-6991; Weight Used for Energy Requirements: Adjusted(IBW) Protein [...] Usual Body Weight: 340 lb (154.2 kg)(01/02/20) [place] Body Weight: 130 lbs; % [place] Body Weight 263.8 % BMI: 55.4 Adjusted [...] Discharge Planning: Too soon to determine Contact: *[id number] * Gayle Hanna MD - 09/23/2020 11:12 [...] 09/23/2020 11:12 AM EST Physical Therapy Facility/Department: [facility] Daily Treatment Note NAME: [...] (HCC), Osteomyelitis (HCC), Osteomyelitis (HCC), Schizophrenia ([facility]), Sleep apnea, and Venous insufficiency. has a past surgical history that includes Abscess Drainage (Right, 09/09/2018); [place] tooth extraction; Dilation and curettage of uterus [...] 09/23/2020 10:00 AM EST Occupational Therapy Facility/Department: [facility] Daily Treatment Note NAME: [...] deficits and progress toward safe dc back [facility] facility. Prognosis: Fair Decision Making: Medium Complexity [...] drug resistant organisms) resistance, Morbidly obese ([facility]), Osteomyelitis ([facility]), Osteomyelitis (HCC), Schizophrenia ([facility]), Sleep apnea, and Venous insufficiency. has a past surgical history that includes Abscess Drainage (Right, 09/09/2018); [place] tooth extraction; Dilation and curettage of uterus [...] Consult: Joann PCP: Jared Guzman MD Outpt Physician'S Assistant: yes, JEROME Lee/Kedar ASSESSMENT: T2DM uncontrolled [...] 60 gram limit no juice w/ trays Physician'S Assistant On-Call: AGAPITO Preferred Method of Communication/Reaching: LendYour. The above physician should be paged w/ questions/concerns about items being managed by Endocrinology Team. If there are any questions or concerns related to the info in this progress note please page the oncall clinical practice consultant directly. On-Call information can be found in the [facility] Online Directory. We can also be reached by [employer]Your communication system. We appreciate the opportunity to participate in this pt's ongoing medical care. ANTICIPATED ENDOCRINE HOME GOING RECOMMENDATIONS: Optimized for Discharge from Endocrine standpoint: No Home Going Endocrine Rx Recommendations-- Current hosp P512qbs insulin doses. Outpt Follow Up-- As scheduled. [...] AC meals 08/28/20 Carito Thacker APRN - PROSTHODONTIST/EDUCATOR acetaminophen (TYLENOL) 325 MG tablet Take 650 [...] Ordering Physician DO HILL LISA Accession Number [id number] CPT4 Codes 70392 () Reason For Exam ileus Report Clinical [...] w/ IV Contrast (IV Onl Ordering Physician [id number] SHEIKH Accession Number [id number] CPT4 Codes 38148 (CT Abdomen/Pelvis w/ IV Contrast (IV Onl), Q9967 (CT ISOVUE 370MG/ML&[id number]&ML&1) Reason For Exam abd pain/tenderness Report CT [...] to discontinue it. I spoke with the molecular geneticist and re-invited him to continue to care [...] Consult: Joann PCP: Jared Guzman MD Outpt Physician'S Assistant: yes, JEROME Lee/Kedar ASSESSMENT: T2DM uncontrolled [...] 60 gram limit no juice w/ trays Physician'S Assistant On-Call: AGAPITO Preferred Method of Communication/Reaching: L[employer]Your. The above physician should be paged w/ questions/concerns about items being managed by Endocrinology Team. If there are any questions or concerns related to the info in this CONSULTATION please page the operations scheduler clinical practice consultant directly. On-Call information can be found in the [facility] Online Directory. We can also be reached by L[employer]Your communication system. We appreciate the opportunity to participate in this pt's ongoing medical care. ANTICIPATED ENDOCRINE HOME GOING RECOMMENDATIONS: Optimized for Discharge from Endocrine standpoint: No Home Going Endocrine Rx Recommendations-- Current hosp X045zee insulin doses. Outpt Follow Up-- As scheduled. [...] units TID AC meals 08/28/20 Carito Thacker, FLEET ADMINISTRATIVE ASSISTANT - PROSTHODONTIST/EDUCATOR acetaminophen (TYLENOL) 325 MG tablet Take 650 [...] Ordering Physician DO HILL LISA Accession Number [id number] CPT4 Codes 36800 () Reason For Exam ileus Report Clinical [...] Onl Ordering Physician ART OWEN Accession Number [id number] CPT4 Codes 71380 (CT Abdomen/Pelvis w/ IV Contrast (IV Onl), Q9967 (CT ISOVUE 370MG/ML&[id number]&ML&1) Reason For Exam abd pain/tenderness Report CT [...] this note. * Asuncion Valencia, JEREMY - PROSTHODONTIST/EDUCATOR - 09/22/2020 8:31 AM EST GENERAL SURGERY [...] willingness to proceed with plan. Asuncion Valencia [facility] Personal Pager [phone] [facility] Surgery Pager [phone] during hours 7:30a-4:30p Wednesday-Wednesday After hours, please contact physician operations scheduler. Associated attestation - Trae Pike MD - 09/22/2020 5:39 PM EST [facility] - Surgery [facility] Physicians Surgery Patient Name: Will Jacinto [...] Jacinto : 1965 AGE: 54 y.o. Room/Bed: [address] [place] [address] Admission Date: 09/17/2020 7:46 PM Consult Date: 09/18/20 Visit Date: 09/21/2020 Reason for Endocrine Consult: DM mgmt Provider/Team Requesting Consult: Joann PCP: Jared Guzman MD Outpt Physician'S Assistant: yes, JEROME Lee/Kedar ASSESSMENT: T2DM uncontrolled [...] 60 gram limit no juice w/ trays Physician'S Assistant On-Call: AGAPITO Preferred Method of Communication/Reaching: PerfectServe. The above physician should be paged w/ questions/concerns about items being managed by Endocrinology Team. If there are any questions or concerns related to the info in this CONSULTATION please page the operations scheduler clinical practice consultant directly. On-Call information can be found in the [facility] Online Directory. We can also be reached by [employer] system. We appreciate the opportunity to participate [...] units TID AC meals 08/28/20 Carito Thacker FLEET ADMINISTRATIVE ASSISTANT - PROSTHODONTIST/EDUCATOR acetaminophen (TYLENOL) 325 MG tablet Take 650 [...] Ordering Physician DO HILL LISA Accession Number [id number] CPT4 Codes 49641 () Reason For Exam ileus Report Clinical [...] Onl Ordering Physician ART OWEN Accession Number [id number] CPT4 Codes 92896 (CT Abdomen/Pelvis w/ IV Contrast (IV Onl), Q9967 (CT ISOVUE 370MG/ML&[id number]&ML&1) Reason For Exam abd pain/tenderness Report CT [...] problems. * ART STAPLETON, MDProgress Note Date:09/20/2020 Room:[address] [place] [address] Patient Name:Will Jacinto Date of :1965 Age:54 [...] Ordering Physician DO HILL LISA Accession Number [id number] CPT4 Codes 64796 () Reason For Exam ileus Report EXAMINATION: [...] Physician MD JOANN, KYLAH Garcia Accession Number [id number] CPT4 Codes 35587 () Reason For Exam ileus fu Report [...] 09/20/2020 2:09 PM EST Occupational Therapy Facility/Department: [facility] Daily Treatment Note NAME: Will Jacinto : 1965 Date of Service: 09/20/2020 Assessment REQUIRES OT FOLLOW UP: Yes Subjective General Chart Reviewed: Yes Subjective Subjective: Eyes half closed and minimal eye contact. States "My stomach just doesn't feel good today". Pt rubbing stomach in the bed. General Comment Comments: Declines therapy this date. Will attempt to see again. Marcela Negron RESTAURANT CASHIER * Juwan Canales PTA - 09/20/2020 10:57 AM EST Physical Therapy Facility/Department: [facility] Daily Treatment Note NAME: [...] Consult: Joann PCP: Jared Guzman MD Outpt Physician'S Assistant: yes, [facility] Jesus/Kedar ASSESSMENT: T2DM uncontrolled with hyperglycemia Insulin [...] 60 gram limit no juice w/ trays Physician'S Assistant On-Call: AGAPITO Preferred Method of Communication/Reaching: L[employer]Your. The above physician should be paged w/ questions/concerns about items being managed by Endocrinology Team. If there are any questions or concerns related to the info in this CONSULTATION please page the operations scheduler clinical practice consultant directly. On-Call information can be found in the [facility] Online Directory. We can also be reached by [employer]Your communication system. We appreciate the opportunity to [...] units TID AC meals 08/28/20 Carito Thacker FLEET ADMINISTRATIVE ASSISTANT - PROSTHODONTIST/EDUCATOR acetaminophen (TYLENOL) 325 MG tablet Take 650 [...] Ordering Physician DO HILL LISA Accession Number [id number] CPT4 Codes 19852 () Reason For Exam ileus Report Clinical [...] radiographic abnormality. Report Dictated on Workstation: [id number] --- Final --- Dictating Physician: MD BARRAGAN HARLAN Signed Date and Time: 09/18/20209:48 am Signed by: MD BARRAGAN HARLAN Transcribed Date and Time: 09/18/2020 10:25 Ct Abdomen Pelvis W Contrast Result Date: 09/17/2020 Patient Name: WILL JACINTO ---CT--- Exam Date/Time 09/17/202022:15:[address] Abdomen/Pelvis w/ IV Contrast (IV Onl Ordering Physician ART OWEN Accession Number [id number] CPT4 Codes 84355 (CT Abdomen/Pelvis w/ IV Contrast (IV Onl), Q9967 (CT ISOVUE 370MG/ML&[id number]&ML&1) Reason For Exam abd pain/tenderness Report CT [...] For additional Questions please call Endoscopy at [phone]. Thank You! * Asuncion Garibay DO - 09/19/2020 8:42 AM EST Department of Internal Medicine Division of Endocrinology, Diabetes, & Metabolism Endocrinology Progress Note Patient Name: Will Jacinto : 1965 AGE: 54 y.o. Room/Bed: 268/2681 Admission Date: 09/17/2020 7:46 PM Consult Date: 09/18/20 Visit Date: 09/18/2020 Reason for Endocrine Consult: DM mgmt Provider/Team Requesting Consult: Joann PCP: Jared Guzman MD Outpt Physician'S Assistant: yes, JEROME Lee/Kedar ASSESSMENT: T2DM uncontrolled [...] 60 gram limit no juice w/ trays Physician'S Assistant On-Call: AGAPITO Preferred Method of Communication/Reaching: L[employer]Your. The above physician should be paged w/ questions/concerns about items being managed by Endocrinology Team. If there are any questions or concerns related to the info in this CONSULTATION please page the operations scheduler clinical practice consultant directly. On-Call information can be found in the [facility] Online Directory. We can also be reached by [employer]Your communication system. We appreciate the opportunity to [...] units TID AC meals 08/28/20 Carito Thacker, FLEET ADMINISTRATIVE ASSISTANT - PROSTHODONTIST/EDUCATOR acetaminophen (TYLENOL) 325 MG tablet Take 650 [...] Ordering Physician DO HILL LISA Accession Number [id number] CPT4 Codes 86398 () Reason For Exam ileus Report Clinical [...] radiographic abnormality. Report Dictated on Workstation: [id number] --- Final --- Dictating Physician: MD BARRAGAN HARLAN Signed Date and Time: 09/18/20209:48 am Signed by: MD BARRAGAN HARLAN Transcribed Date and Time: 09/18/2020 10:25 Ct Abdomen Pelvis W Contrast Result Date: 09/17/2020 Patient Name: WILL JACINTO ---CT--- Exam Date/Time 09/17/202022:15:[address] Abdomen/Pelvis w/ IV Contrast (IV Onl Ordering Physician ART OWEN Accession Number [id number] CPT4 Codes 59228 (CT Abdomen/Pelvis w/ IV Contrast (IV Onl), Q9967 (CT ISOVUE 370MG/ML&[id number]&ML&1) Reason For Exam abd pain/tenderness Report CT [...] schizophrenia, female identifying as male. Admitted from [place] w/ abd pain/n/v concerning for ileus. Pt [...] loss Fluid Accumulation: 1 - Mild Extremities Bean Snapper Strength: Not Performed Estimated Daily Nutrient Needs: Energy (kcal): 8960-8117; Weight Used for Energy Requirements: Adjusted(IBW) Protein (g): 53-64; Weight Used for Protein Requirements: Adjusted(IBW) Fluid (ml/day): per MD; Nutrition Related Findings: +BS; abd round, rotund. +1 pitting edema LLE, R AKA. Tamara 14. [id number], ALT and AST elevated Wounds: None Current Nutrition Therapies: DIET CLEAR LIQUID; Anthropometric Measures: Height: 5' 6" (167.6 cm) Current Body Weight: 360 lb (163.3 kg) Admission Body Weight: 360 lb (163.3 kg) [place] Body Weight: 130 lbs; % [place] Body Weight 276.9 % BMI: 58.1 Adjusted [...] Discharge Planning: Too soon to determine Contact: [phone] * Carito Ruelas, PT - 09/18/2020 10:15 AM EST Physical Therapy Facility/Department: [facility] Initial Assessment NAME: Will Jacinto [...] history that includes Abscess Drainage (Right, 09/09/2018); [place] tooth extraction; Dilation and curettage of uterus [...] Lives With: Other (comment) Type of Home: [facility] Home Layout: One level Bathroom Shower/Tub: Shower chair with back, Walk-in shower Bathroom Toilet: Handicap height Bathroom Equipment: Grab bars in shower, Grab bars around toilet, Shower chair Bathroom Accessibility: Wheelchair accessible Home Equipment: Rolling walker, Wheelchair-manual Receives Help From: pick up attendant ADL Assistance: Needs assistance(assist for toileting and all ADLs (A x 1)) Homemaking Responsibilities: No Ambulation Assistance: Needs assistance(transfers only, wc mob) Transfer Assistance: Needs assistance(at [facility] to w/c) Active Hadoop Software Engineer: No Patient's Hadoop Software Engineer Info: facility, [facility] transport Additional Comments: pt states [...] climbing 3-5 steps with a railing?: Total AM-[facility] Inpatient Mobility Raw Score : 10 AM-[facility] Inpatient T-Scale Score : 32.29 Mobility [...] history that includes Abscess Drainage (Right, 09/09/2018); [place] tooth extraction; Dilation and curettage of uterus [...] Lives With: Other (comment) Type of Home: Facility[facility] Home Layout: One level Bathroom Shower/Tub: Shower chair with back, Walk-in shower Bathroom Toilet: Handicap height Bathroom Equipment: Grab bars in shower, Grab bars around toilet, Shower chair Bathroom Accessibility: Wheelchair accessible Home Equipment: Rolling walker, Wheelchair-manual Receives Help From: pick up attendant ADL Assistance: Needs assistance(assist for toileting and all ADLs (A x 1)) Homemaking Responsibilities: No Ambulation Assistance: Needs assistance(transfers only, wc mob) Transfer Assistance: Needs assistance(at [facility] to w/c) Active Hadoop Software Engineer: No Patient's Hadoop Software Engineer Info: facility, [facility] transport Additional Comments: pt states staff assist with all ADLs. Pt transfers at [facility] to w/c then transfers at [facility] to commode with staff to assist with [...] sit: Stand by assistance Transfer Comments: at [facility] with bed height slightly elevated Vision - [...] CMS 0-100% Score: 53.32 (09/18/20952) ADL Inpatient [facility] G-Code Modifier : CK (09/18/20952) Goals [...] : GIB No Renal : CKD No PATIENT SERVICES SPECIALIST : CVA/TIA No Musculoskeletal system : DJD [...] meds Priyank Rios MD * Ema Escobedo, FLEET ADMINISTRATIVE ASSISTANT - PATIENT SERVICES SPECIALIST - 11/28/2020 10:52 AM EST Department of Internal Medicine Division of Endocrinology, Diabetes, & Metabolism Endocrinology Progress Note Patient Name: Will Jacinto : 1965 AGE: 55 y.o. Room/Bed: 171/698875 Admission Date: 11/22/2020 5:55 PM Consult Date: 11/24/20 Visit Date: 11/28/2020 Reason for Endocrine Consult: "out of control diabetic" Provider/Team Requesting Consult: Joann PCP: Jared Guzman MD Outpt Physician'S Assistant: yes, [facility] ASSESSMENT: T2DM uncontrolled w/ hyperglycemia, on long-term [...] doses (160-110-150 units TID) Outpt Follow Up-- [facility] Dr. Lee Appointment request sent to Endo office Staff: No, has appt in January SUBJECTIVE/HPI: CHIEF COMPLAINT: Abdominal Pain Type of DM: 2 Onset of DM: unclear Home DM Medication Regimen: U500 pen 160/110/150 TID; given via [facility] ([facility]) DM control (last A1c/glucose data): Lab [...] am. Plan for d/c to [facility] later today. ROS negative except for those [...] data in the 24 hours ending 11/28/20 0753 Diet: Dietary Nutrition Supplements: Diabetic Oral Supplement [...] Radiology ACCESSION EXAM DATE/TIME PROCEDURE ORDERING PROVIDER [id number] 11/22/2020 18:30 EST CR Chest Portable [id number] NOLASCO CPT code 72213 Reason For Exam (CR Chest Portable) SOB [...] Tomography ACCESSION EXAM DATE/TIME PROCEDURE ORDERING PROVIDER [id number] 11/22/2020 19:[address] Abdomen/Pelvis w/ IV 636203 -JOEL NELSON Contrast (IV Onl CPT code 27798 Q9967 Reason For Exam (CT Abdomen/Pelvis w/ [...] radiology, and other reports. 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 Pt reports his wt fluctuates frequently, stating UBW 350#, and pt last weighed 353# in nursing facility within past month Malnutrition Assessment: Malnutrition Status: Insufficient data Estimated Daily Nutrient Needs: Energy (kcal): 9723-5356; Weight Used for Energy Requirements: Adjusted(IBW) Protein [...] however 330# per Epic 09/17, 340# 01/02) [place] Body Weight: 130 lbs; % [place] Body Weight 243.8 % BMI: 51.2 Adjusted [...] Discharge Planning: Too soon to determine Contact: [phone] * Ema Escobedo, FLEET ADMINISTRATIVE ASSISTANT - PATIENT SERVICES SPECIALIST - 11/27/2020 1:41 PM EST Department of Internal Medicine Division of Endocrinology, Diabetes, & Metabolism Endocrinology Progress Note Patient Name: Will Jacinto : 1965 AGE: 55 y.o. Room/Bed: [facility]/002829 Admission Date: 11/22/2020 5:55 PM Consult Date: 11/24/20 Visit Date: 11/27/2020 Reason for Endocrine Consult: "out of control diabetic" Provider/Team Requesting Consult: Joann PCP: Jared Guzman MD Outpt Physician'S Assistant: yes, [facility] ASSESSMENT: T2DM uncontrolled w/ hyperglycemia, on long-term [...] doses (160-110-150 units TID) Outpt Follow Up-- [facility] Dr. Lee Appointment request sent to Endo office Staff: No, has appt in January SUBJECTIVE/HPI: CHIEF COMPLAINT: Abdominal Pain Type of DM: 2 Onset of DM: unclear Home DM Medication Regimen: U500 pen 160/110/150 TID; given via [facility] ([facility]) DM control (last A1c/glucose data): Lab [...] currently. Plan for d/c to [facility] once stable. ROS negative except for those [...] Radiology ACCESSION EXAM DATE/TIME PROCEDURE ORDERING PROVIDER [id number] 11/22/2020 18:30 EST CR Chest Portable [id number] NOLASCO CPT code 91185 Reason For Exam (CR Chest Portable) SOB [...] Tomography ACCESSION EXAM DATE/TIME PROCEDURE ORDERING PROVIDER [id number] 11/22/2020 19:[address] Abdomen/Pelvis w/ IV [id number] FARMER Contrast (IV Onl CPT code 33060 Q9967 Reason For Exam (CT Abdomen/Pelvis w/ [...] radiology, and other reports. I reviewed the CASE LOADER OPERATOR/resident's note and agree with the documented findings [...] outpatient - plan to DC back to [facility] * Morenita Steele V., PT - 11/27/2020 9:48 AM EST Physical Therapy Facility/Department: [facility] ONCOLOGY Initial Assessment NAME: Will [...] history that includes Abscess Drainage (Right, 09/09/2018); [place] tooth extraction; Dilation and curettage of uterus [...] Home Equipment: Wheelchair-electric Receives Help From: Family, pick up attendant ADL Assistance: Needs assistance Homemaking Assistance: Needs assistance Homemaking Responsibilities: No Active Hadoop Software Engineer: No Patient's Hadoop Software Engineer Info: facility, [facility] transport Additional Comments: from facility, assist with ADLs, uses electric wheelchair for mobility, stand pivot transfer with FWW 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 Goals [...] 08/23/2020 No results found for: PHART, PO2ART, [id number] No results for input(s): INR in the [...] had multiple BMs this morning. Seen by Fur Dry Cleaner Hand and had hysteroscopy today with biopsy done [...] history that includes Abscess Drainage (Right, 09/09/2018); [place] tooth extraction; Dilation and curettage of uterus [...] Home Equipment: Wheelchair-electric Receives Help From: Family, pick up attendant ADL Assistance: Needs assistance Homemaking Assistance: Needs assistance Homemaking Responsibilities: No Active Hadoop Software Engineer: No Patient's Hadoop Software Engineer Info: facility, [facility] transport Additional Comments: from facility, assist with ADLs, uses electric wheelchair for mobility, stand pivot transfer with FWW FIELD PARTY MANAGER Objective Vision: Within Functional Limits Hearing: Within [...] Equipment Evaluation, Education, & procurement OutComes Score [facility] Daily Activity Inpatient How much help for putting on and taking off regular lower body clothing?: Total How much help for Bathing?: A Lot How much help for Toileting?: Total How much help for putting on and taking off regular upper body clothing?: A Little How much help for taking care of personal grooming?: None How much help for eating meals?: None [facility] Daily Activity Raw Score: 15 [facility] Inpatient ADL T-Scale Score : 34.69 [...] Plan of Care supervision is transferred to [facility] Occupational Therapist. Goals and/or treatment plan was established in collaboration with patient/family/other representatives. Denise Ramon OTR/L * Jagdeep Grace MD - 11/27/2020 8:14 AM EST Progress Note Date:11/27/2020 Room:[address] [place] [address] Patient Name:Will Jacinto Date of :1965 Age:55 [...] Radiology ACCESSION EXAM DATE/TIME PROCEDURE ORDERING PROVIDER [id number] 11/25/2020 15:08 EST CR Abdomen AP Lorenzo STAPLETON MICHAEL CPT code 09059 Reason For Exam (CR Abdomen AP) abd [...] Ultrasound ACCESSION EXAM DATE/TIME PROCEDURE ORDERING PROVIDER [id number] 11/25/2020 10:38 EST US Transvaginal MD DANIELS DIANA CHRISTINE CPT code 67025 Reason For Exam (US Transvaginal) AUB Report [...] PATIENT NAME: Will Jacinto DATE: 11/27/2020 PAGER: [phone] * Ema Escobedo APRN - PATIENT SERVICES SPECIALIST - 11/26/2020 1:45 PM EST Department of Internal Medicine Division of Endocrinology, Diabetes, & Metabolism Endocrinology Progress Note Patient Name: Will Jacinto : 1965 AGE: 55 y.o. Room/Bed: 1714/477182 Admission Date: 11/22/2020 5:55 PM Consult Date: 11/24/20 Visit Date: 11/26/2020 Reason for Endocrine Consult: "out of control diabetic" Provider/Team Requesting Consult: Joann PCP: Jared Guzman MD Outpt Physician'S Assistant: yes, [facility] ASSESSMENT: T2DM uncontrolled w/ hyperglycemia, on long-term [...] doses (160-110-150 units TID) Outpt Follow Up-- [facility] Dr. Lee Appointment request sent to Endo office Staff: No, has appt in January SUBJECTIVE/HPI: CHIEF COMPLAINT: Abdominal Pain Type of DM: 2 Onset of DM: unclear Home DM Medication Regimen: U500 pen 160/110/150 TID; given via SNF ([facility]) DM control (last A1c/glucose data): Lab Results [...] currently. Plan for d/c to [facility] once stable. ROS negative except for those [...] Radiology ACCESSION EXAM DATE/TIME PROCEDURE ORDERING PROVIDER [id number] 11/22/2020 18:30 EST CR Chest Portable [id number] NELSON CPT code 95914 Reason For Exam (CR Chest Portable) SOB [...] Tomography ACCESSION EXAM DATE/TIME PROCEDURE ORDERING PROVIDER [id number] 11/22/2020 19:[address] Abdomen/Pelvis w/ IV [id number] -JOEL NELSON Contrast (IV Onl CPT code 98213 Q9967 Reason For Exam (CT Abdomen/Pelvis w/ [...] radiology, and other reports. I reviewed the CASE LOADER OPERATOR/resident's note and agree with the documented findings [...] outpatient - plan to DC back to [facility] Time spent with patient over 51% total time 15 minutes which includes review of records, counseling, management, and coordination of care as documented in note. * Jagdeep Grace MD - 11/26/2020 12:59 PM EST Progress Note Date:11/26/2020 Room:[address] [place] [address] Patient Name:Will Jacinto Date of :1965 Age:55 [...] Radiology ACCESSION EXAM DATE/TIME PROCEDURE ORDERING PROVIDER [id number] 11/25/2020 15:08 EST CR Abdomen AP Lorenzo STAPLETON MICHAEL CPT code 77290 Reason For Exam (CR Abdomen AP) abd [...] Ultrasound ACCESSION EXAM DATE/TIME PROCEDURE ORDERING PROVIDER [id number] 11/25/2020 10:38 EST US Transvaginal MD DANIELS DIANA CHRISTINE CPT code 08378 Reason For Exam (US Transvaginal) AUB Report [...] FACC; FHRS; FASNC; CCDS. PATIENT NAME: Will Jaicnto DATE: 11/26/2020 PAGER: [phone] * Leonela Guerrero MD - 11/26/2020 12:35 PM EST Underwent uncomplicated PEUA, D&C, and IUD placement this morning. Megace discontinued as she is now being treated with levonorgestrel IUD. Will await pathology results and arrange outpatient follow up. COMMODITY LEAD ONC will sign off at this time. Please re-consult with further questions or concerns. Discussed w/ Dr. Dejesus. * Michael Martin MD - 11/26/2020 10:24 AM EST Hospitalist Progress Note 11/26/2020 10:25 AM Subjective: Admit Date: 11/22/2020 PCP: Jared Guzman MD Interval History: No overnight issues. DIET FULL LIQUID; No intake/output data recorded. Date 11/26/20 0000 - 11/26/20 2359 Shift [id number] 3934-8228 8199-1198 24 Hour Total INTAKE P.O.(mL/kg/hr) 100 100 [...] 08/23/2020 No results found for: PHART, PO2ART, [id number] No results for input(s): INR in the [...] Pt was transferred from [facility] Seen by Fur Dry Cleaner Hand and had hysteroscopy today with biopsy done [...] 55 y.o. transgender male admitted to [facility] for abdominal pain and uncontrolled [...] 55 y.o. transgender male admitted to [facility] for abdominal pain and uncontrolled [...] determine long-term management Appreciate primary team and clinical practice consultant management of medical comorbidities. Most recent [...] Jacinto : 1965 AGE: 55 y.o. Room/Bed: [facility] Admission Date: 11/22/2020 5:55 PM Consult Date: 11/24/20 Visit Date: 11/25/2020 Reason for Endocrine Consult: "out of control diabetic" Provider/Team Requesting Consult: Joann PCP: Jared Guzman MD Outpt Physician'S Assistant: yes, [facility] ASSESSMENT: T2DM uncontrolled w/ hyperglycemia, on long-term [...] doses (160-110-150 units TID) Outpt Follow Up-- [facility] Dr. Lee Appointment request sent to Endo office Staff: No, has appt in January SUBJECTIVE/HPI: CHIEF COMPLAINT: Abdominal Pain Type of DM: 2 Onset of DM: unclear Home DM Medication Regimen: U500 pen 160/110/150 TID; given via [facility] ([facility]) DM control (last A1c/glucose data): Lab [...] Radiology ACCESSION EXAM DATE/TIME PROCEDURE ORDERING PROVIDER [id number] 11/22/2020 18:30 EST CR Chest Portable [id number] NELSON CPT code 76731 Reason For Exam (CR Chest Portable) SOB [...] Tomography ACCESSION EXAM DATE/TIME PROCEDURE ORDERING PROVIDER [id number] 11/22/2020 19:[address] Abdomen/Pelvis w/ IV [id number] -JOEL NELSON Contrast (IV Onl CPT code 48092 Q9967 Reason For Exam (CT Abdomen/Pelvis w/ [...] excessive vaginal clots, patient not seen by COMMODITY LEAD ("due tohigh glucoses"). His glucose came down [...] in transgender male, hx of endometrial hyperplasia, COMMODITY LEAD consulted 5. Morbid obesity, obstructive sleep apnea [...] RN - 11/24/2020 11:43 AM ROSE [place] Veneer Drier Feeder called me to patients bedside at 11:15am [...] on patient since it was called by executive secretary and Dr David will be at [...] - 06/20/2019 10:09 AM EDT Progress Note [facility] Patient - Will Jacinto, Age - 53 y.o. - 1965 Room Number - [id number] [facility] - [id number] Date of Admission - 06/14/2019 1:21 PM [...] EDT ENDOCRINOLOGY PROGRESS NOTE Patient: Will Jacinto Unit/Bed:6125/607782 Date of : 1965 Admit date: 06/14/2019 [...] Effort normal and breath sounds normal. Musculoskeletal: [place] at r AKA are intact Faint erythema [...] radiology, and other reports. I reviewed the CASE LOADER OPERATOR/resident's note and agree with the documented findings [...] per protocol. Noted likely DC back to [place]. Anticipated homegoing regimen: U-500 160-125-125 TID (given different diet at the [place]). FU with Endocrinology outpatient - pt prefers closer to [place]. Time spent with patient over 51% total time 25 minutes which includes review of records, counseling, management, and coordination of care as documented in note. * Davie Frankel MD - 06/19/2019 11:56 AM EDT Hospitalist Progress Note 06/19/2019 11:57 AM [phone]: Please page me for patient care issues. [phone]: Please page [facility] night Hospitalist for any issues. Subjective: Admit Date: 06/14/2019 PCP: Jared Guzman MD Room#: 6173/[id number] Interval History: No new issues per pt [...] Directive: Full Code Discharge planning: to [facility] soon Davie Frankel MD Division of Hospitalist Medicine Inpatient Medical Services * Theo Billingsley MD - 06/19/2019 9:46 AM EDT Progress Note [facility] Patient - Will Jacinto, Age - 53 y.o. - 1965 Room Number - [id number] [facility] - [id number] Date of Admission - 06/14/2019 1:21 PM [...] Specialists 06/19/2019 2:08 PM * Elle Knutson, FIELD PARTY MANAGER - 06/19/2019 9:24 AM EDT Physical Therapy Facility/Department: [facility] TELEMETRY Daily Treatment Note NAME: Will Jacinto : 1965 Date of Service: 06/19/2019 Discharge Recommendations: Subacute/Halfway Facility Assessment Body structures, Functions, Activity limitations: [...] history that includes Abscess Drainage (Right, 09/09/2018); [place] tooth extraction; Dilation and curettage of uterus [...] 1965 Date of Service: 06/19/2019 Discharge Recommendations: Subacute/Halfway Facility Assessment Performance deficits / Impairments: Decreased functional mobility ;Decreased ADL status;Decreased ROM;Decreased strength;Decreased safe awareness;Decreased cognition;Decreased endurance;Decreased balance;Decreased coordination Assessment: OT eval completed. Pt presents with above deficits limitng functional indep. Pt is a falls and safety risk. Recommend SNF upon discharge to maximize indep and safety with ADL and transfers. Prognosis: Fair Decision Making: Medium Complexity Exam: [facility] OT Education: OT Role;Plan of Care;Transfer [...] history that includes Abscess Drainage (Right, 09/09/2018); [place] tooth extraction; Dilation and curettage of uterus [...] Other (comment) Type of Home: Facility([facility]) Home Layout: One level Home Access: Level entry Bathroom Shower/Tub: Walk-in shower, Shower chair with back Bathroom Toilet: Handicap height Bathroom Equipment: Grab bars in shower, Shower chair Bathroom Accessibility: Wheelchair accessible Home Equipment: 4 wheeled walker, Electric scooter, Wheelchair-manual Receives Help From: pick up attendant ADL Assistance: Needs assistance Homemaking Assistance: (provided by facility) Homemaking Responsibilities: No Ambulation Assistance: Independent(has been using wc 3-4 years) Transfer Assistance: Independent Active Hadoop Software Engineer: No Patient's Hadoop Software Engineer Info: facility, [facility] transport Mode of Transportation: Bus, [...] How much help for eating meals?: None [facility] Inpatient Daily Activity Raw Score: 13 AM-PAC [...] Plan of [facility]. Pt requires skill of 2 therapists for safety and positioning. Linda Cameron OTR/L * Kerri Morales MD - 06/19/2019 8:16 AM EDT Department of Internal Medicine Section of Endocrinology Resident Progress Note SUBJECTIVE: Admit date: 06/14/2019 Admitted w/: Right foot wound requiring AKA Original Endocrine Consult date: 06/15/19 OutPt Physician'S Assistant: None Lab Results Component Value Date [...] Range: >60 mL/min 38.9 EGFR IF NonAfrican [place] Latest Ref Range: >60 mL/min 32.1 Glucose [...] to be determined. Please page the on-call Physician'S Assistant if there arequestions regarding Endocrine DC recommendations. If there are any questions or concerns related to the info please page the operations scheduler clinical practice consultant directly. On-Call information can be found in the [facility]. We appreciate the opportunity to [...] this progress note please page the oncall clinical practice consultant directly. On-Call information can be found in the [facility] Directory. We can also be reached by [employer] system. We appreciate the opportunity to participate [...] EDT Hospitalist Progress Note 06/18/2019 2:31 PM [phone]: Please page me for patient care issues. [phone]: Please page [facility] night Hospitalist for any issues. Subjective: Admit Date: 06/14/2019 PCP: Jared Guzman MD Room#: [id number] Interval History: Patient seen and examined No [...] of Hospitalist Medicine Inpatient Medical Services PAGER: [phone] * Allison Coleman RD, LD - 06/18/2019 [...] he is still ordering & consuming meals. FIELD PARTY MANAGER, he was a resident at [facility]. At [place], he reports receiving ProStat (protein modular) and [...] High Nutrient Needs: Estimated Daily Total Kcal: 3076-6856 (25-30 kcals/kg IBW) Estimated Daily Protein (g): [...] 380 lb (172.4 kg)(Per pt report ) [place] Body Wt: 122 lb (55.3 kg)(Adjusted IBW based on R AKA ), % [place] Body 309% Adjusted Body Wt: , body [...] - 06/18/2019 9:28 AM EDT Progress Note [facility] Patient - Will Jacinto, Age - 53 y.o. - 1965 Room Number - [id number] [id number] Date of Admission - 06/14/2019 1:21 PM [...] Oral Nightly colistimethate (COLY-MYCIN) IVPB 1.69 mg/kg ([place]) Intravenous Q8H insulin regular 0-16 Units Subcutaneous [...] is being seen by wound care at [facility] already. Original Endocrine Consult date: 06/15/19 OutPt Physician'S Assistant: none Lab Results Component Value Date [...] 5 % 100 mL IVPB, 1.69 mg/kg ([place]), Intravenous, Q8H insulin regular (HUMULIN R;NOVOLIN R) [...] reviewed and are negative. Inpt ROS: [] MALOCLM [] diaphoresis [] tremor [] CP [] [...] to be determined. Please page the on-call Physician'S Assistant if there arequestions regarding Endocrine DC recommendations. If there are any questions or concerns related to the info in this progress note please page the oncall clinical practice consultant directly. On-Call information can be found in the [facility] Directory. We appreciate the opportunity [...] Clemons MD - 06/18/2019 6:13 AM EDT [facility] TE[address]METRY [address] [place] [address] Dept: [phone] Loc: [phone] Orthopedic Progress Note Name: Will Jacinto Date:06/18/2019 [...] an outpatient in 2 weeks please call [phone] to make an appointment Will sign off-=call with questions * Jayson Hawthorne MD - 06/17/2019 2:43 PM EDT Progress Note [facility] Patient - Will Jacinto, Age - 53 y.o. - 1965 Room Number - [id number] N - [id number] Date of Admission - 06/14/2019 1:21 PM [...] Oral Nightly colistimethate (COLY-MYCIN) IVPB 1.69 mg/kg ([place]) Intravenous Q8H insulin regular 0-16 Units Subcutaneous [...] midfoot with some midfoot Jayson Hawthorne MD [facility] 06/17/2019 2:44 PM * Crystal Mullins MD - 06/17/2019 1:15 PM EDT Hospitalist Progress Note 06/17/2019 1:16 PM [phone]: Please page me for patient care issues. [phone]: Please page [facility] night Hospitalist for any issues. Subjective: Admit Date: 06/14/2019 PCP: Jared Guzman MD Room#: [id number] Interval History: Patient seen and examined No [...] Oral Nightly colistimethate (COLY-MYCIN) IVPB 1.69 mg/kg ([place]) Intravenous Q8H insulin regular 0-16 Units Subcutaneous [...] of Hospitalist Medicine Inpatient Medical Services PAGER: [phone] * Sera Kraus, PT - 06/17/2019 10:32 AM EDT Physical Therapy Facility/Department: [facility] TELEMETRY Initial Assessment NAME: Will Jacinto : 1965 Date of Service: 06/17/2019 Discharge Recommendations: Subacute/Halfway Facility Assessment Body structures, Functions, Activity limitations: [...] history that includes Abscess Drainage (Right, 09/09/2018); [place] tooth extraction; Dilation and curettage of uterus [...] Other (comment) Type of Home: Facility([facility]) Home Layout: One level Home Access: Level entry Bathroom Shower/Tub: Walk-in shower, Shower chair with back Bathroom Toilet: Handicap height Bathroom Equipment: Grab bars in shower, Shower chair Bathroom Accessibility: Wheelchair accessible Home Equipment: 4 wheeled walker, Electric scooter, Wheelchair-manual Receives Help From: pick up attendant ADL Assistance: Needs assistance Homemaking Assistance: (provided by facility) Homemaking Responsibilities: No Ambulation Assistance: (non-ambulatory x3-4 years, uses wc) Transfer Assistance: Independent Active Hadoop Software Engineer: No Patient's Hadoop Software Engineer Info: facility, [facility] transport Mode of Transportation: Bus, [...] Plan of Care supervision is transferred to [facility] Rehab Department Physical Therapist. Goals [...] is being seen by wound care at [facility] already. Original Endocrine Consult date: 06/15/19 OutPt Physician'S Assistant: none Lab Results Component Value Date [...] 5 % 100 mL IVPB, 1.69 mg/kg ([place]), Intravenous, Q8H insulin regular (HUMULIN R;NOVOLIN R) [...] to be determined. Please page the on-call Physician'S Assistant if there arequestions regarding Endocrine DC recommendations. If there are any questions or concerns related to the info in this progress note please page the oncall clinical practice consultant directly. On-Call information can be found in the [facility] Directory. We appreciate the opportunity [...] Clemons MD - 06/17/2019 5:29 AM EDT [place] [address] [place] [address] Dept: [phone] Loc: [phone] Orthopedic Progress Note Name: Will Jacinto Date:06/17/2019 [...] an outpatient in 2 weeks please call [phone] to make an appointment * Crystal Mullins MD - 06/16/2019 4:12 PM EDT Hospitalist Progress Note 06/16/2019 4:12 PM [phone]: Please page me for patient care issues. [phone]: Please page [facility] night Hospitalist for any issues. Subjective: Admit Date: 06/14/2019 PCP: Jared Guzman MD Room#: 5425/462222 Interval History: Patient seen and examined No [...] Oral Nightly colistimethate (COLY-MYCIN) IVPB 1.69 mg/kg ([place]) Intravenous Q8H insulin regular 0-16 Units Subcutaneous [...] of Hospitalist Medicine Inpatient Medical Services PAGER: [phone] * Asuncion Garibay DO - 06/16/2019 3:23 PM EDT Department of Internal Medicine Section of Endocrinology Attending Progress Note SUBJECTIVE: Admit date: 06/14/2019 Admitted w/: Chief Complaint Patient presents with Wound Check Patient sent over for evaluation for worsening leg infections, right lower leg is worse. he is being seen by wound care at [facility] already. Original Endocrine Consult date: 06/15/19 OutPt Physician'S Assistant: none Lab Results Component Value Date [...] 5 % 100 mL IVPB, 1.69 mg/kg ([place]), Intravenous, Q8H insulin regular (HUMULIN R;NOVOLIN R) [...] his operating room procedure and returns to [place] is a lot of diet and we [...] to be determined. Please page the on-call Physician'S Assistant if there arequestions regarding Endocrine DC recommendations. If there are any questions or concerns related to the info in this progress note please page the oncall clinical practice consultant directly. On-Call information can be found in the [facility] Directory. We appreciate the opportunity [...] - 06/16/2019 12:25 PM EDT Progress Note [facility] Patient - Will Jacinto, Age - 53 y.o. - 1965 Room Number - [id number] N - [id number] [id number] Date of Admission - 06/14/2019 1:21 PM [...] Oral Nightly colistimethate (COLY-MYCIN) IVPB 1.69 mg/kg ([place]) Intravenous Q8H insulin regular 0-16 Units Subcutaneous [...] Cartagena MD - 06/16/2019 5:47 AM EDT [facility] H6 TELEMETRY [address] [place] [address] Dept: [phone] Loc: [phone] Orthopedic Progress Note Name: Will Jacinto Date:06/16/2019 [...] Consult endocrine. Obesity: counseled. Debility: Resides at [facility]- will need SNF. Depression: on meds. DVT and GI prophylaxis ANAND LEE MD * Juan Carey MD - 06/15/2019 6:32 AM EDT [facility] H6 TELEMETRY [address] [facility] [address] Dept: [phone] Loc: [phone] Orthopedic Progress Note Name: Will Jacinto Date:06/15/2019 [...] Physician Discharge Summary Patient ID: Will Jacinto [id number] y.o. 1965 Admit date: 09/17/2020 Discharge [...] feel he is stable to return to [place] on this current treatment regimen with smaller [...] Normal strength, sensation and reflexes throughout Disposition: [facility] Patient Instructions: @MEDDISCHARGE@ Activity: activity as tolerated [...] transgender male, biologically female, presented from his halfway after abdominal pain, out of control glucose readings and reported mental status change. However, EMS in the hospital reported that he was alert and oriented x3, however, he says that recently he has had increasing abdominal distention and distress and he noticed that his glucoses have been harder and harder to control. Pt was admitted to [facility]. Pt had dysfunctinal uterine bleeding and transferred to [facility] for Fur Dry Cleaner Hand eval. Also had ab pain and found to have ileus. Seen by GI and recommended reglan. Pt had BMs. abd pain better. Advance diet to GI soft Seen by [facility] [employer] [employer] and had hysteroscopy with biopsy done KUB [...] 08/23/2020 No results found for: PHART, PO2ART, EUI3IXH No results for input(s): INR in the [...] Radiology ACCESSION EXAM DATE/TIME PROCEDURE ORDERING PROVIDER [id number] 11/27/2020 08:28 EST CR Abdomen AP MD MARTIN KHALED CPT code 60087 Reason For Exam (CR Abdomen AP) ileus [...] Radiology ACCESSION EXAM DATE/TIME PROCEDURE ORDERING PROVIDER [id number] 11/25/2020 15:08 EST CR Abdomen AP Lorenzo STAPLETON MICHAEL CPT code 74834 Reason For Exam (CR Abdomen AP) abd [...] Radiology ACCESSION EXAM DATE/TIME PROCEDURE ORDERING PROVIDER [id number] 11/22/2020 18:30 EST CR Chest Portable JOEL ZHONG CPT code 29935 Reason For Exam (CR Chest Portable) SOB [...] Tomography ACCESSION EXAM DATE/TIME PROCEDURE ORDERING PROVIDER [id number] 11/22/2020 19:[address] Abdomen/Pelvis w/ IV [id number] -JOEL NELSON Contrast (IV Onl CPT code 93689 Q9967 Reason For Exam (CT Abdomen/Pelvis w/ [...] Ultrasound ACCESSION EXAM DATE/TIME PROCEDURE ORDERING PROVIDER [id number] 11/25/2020 10:38 EST US Transvaginal MD DANIELS DIANA CHRISTINE CPT code 58875 Reason For Exam (US Transvaginal) AUB Report [...] Will Jacinto "Maria Luisa" Home Medication Instructions JORDYN:[id number] Printed on:11/28/20 0911 Medication Information acetaminophen (TYLENOL) [...] g by mouth daily Consults: GI, cardiology, [employer] Disposition: Patient discharged in stable condition. Greater [...] TO GIIP CONSULT TO CARDIOLOGYIP CONSULT TO COUNSELING CENTER DIRECTOR Surgeries/procedures Performed: Treatments: Discharge Plan/Disposition: Home Hospital/Incidental [...] U-500 KWIKPEN) 500 UNIT/ML SOPN concentrated injection [id number] units before breakfast, 110 units before lunch, [...] vaginal bleeding--pelvic US shows increased thickening of endometrium--COMMODITY LEAD recommends further acute eval by COMMODITY LEAD ONC--Dr Walsh has seen pt. Previously & recommended hysterectomy, which was postponed at that time due to other medical issues--blood sugar now controlled SIGNIFICANT DIAGNOSTIC STUDIES: Ct---pelvic US CONSULTANTS: COMMODITY LEAD--cardio RECOMMENDED NEXT STEPS: [facility] & Dr Walsh (COMMODITY LEAD ONC) ---resume aspirin when bleeding issues resolved DISCHARGE MEDICATIONS: Will Jacinto "Maria Luisa" Home Medication Instructions JORDYN:[id number] Printed on:11/25/20 2650 Medication Information acetaminophen (TYLENOL) 325 MG tablet [...] Complexity: follow up within 7-14 calendar days (04223) [] Severe Complexity: follow up within 7 calendar days (03796) FOLLOW UP TESTING, PENDING RESULTS OR REFERRALS AT TRANSITIONAL CARE VISIT: [] Yes [] No PENDING STUDIES: No DISPOSITION: Transfer to Acute Care Hospital FACILITY/HOME CARE AGENCY NAME: Follow up with Jared Guzman MD [address] [address] INSTRUCTIONS TO MA/SW DISCHARGE TIME: SIGNED: ART STAPLETON MD 11/25/2020, 1:49 PM documented in this encounter Chief Complaint and Reason for Visit Chief Complaint SENIOR CARE LAB WOR K Chief Complaint SENIOR CARE LAB WOR K SENIOR CARE LAB WORK SENIOR CARE LAB WORK Chief Complaint SENIOR CARE LAB WOR K SENIOR CARE LAB WORK SENIOR CARE LAB WORK SENIOR CARE LAB WORK Chief Complaint SENIOR CARE LABWORK Chief Complaint SENIOR CARE LABWORK LABWORK Chief Complaint SENIOR CARE LABWORK LABWORK LABWORK Chief Complaint LABWORK SENIOR CARE LABWORK SENIOR CARE LAB WORK Chief Complaint SENIOR CARE LABWORK SENIOR CARE LAB WORK SENIOR CARE LABWORK Chief Complaint SENIOR CARE LABWORK LABWORK LABWORK LABWORK Chief Complaint LABWORK LABWORK SENIOR CARE LAB WORK LABWORK SENIOR CARE LABWORK Chief Complaint SENIOR CARE LAB WOR K LABWORK SENIOR CARE LABWORK LABWORK SENIOR CARE LAB WORK Chief Complaint LABWORK SENIOR CARE LABWORK LABWORK SENIOR CARE LAB WORK SENIOR CARE LAB WORK Chief Complaint SENIOR CARE LABWORK LABWORK SENIOR CARE LAB WORK SENIOR CARE LABWORK SENIOR CARE LAB WORK Chief Complaint LABWORK SENIOR CARE LAB WORK SENIOR CARE LABWORK SENIOR CARE LAB WORK LABWORK Chief Complaint LABWORK SENIOR CARE LAB WORK SENIOR CARE LABWORK SENIOR CARE LAB WORK SENIOR CARE LAB WORK LABWORK LABWORK Chief Complaint SENIOR CARE LAB WOR K SENIOR CARE LABWORK SENIOR CARE LAB WORK SENIOR CARE LAB WORK LABWORK LABWORK LABWORK LABWORK Chief Complaint SENIOR CARE LAB WOR K SENIOR CARE LABWORK SENIOR CARE LAB WORK SENIOR CARE LAB WORK LABWORK LABWORK LABWORK LABWORK LABWORK Chief Complaint Admit Date LABWORK September 22, 2024 5:00am LABWORK October 30, 2024 5:00am SENIOR CARE LAB WORK November 10, 2024 9:46am SENIOR CARE LAB WORK November 30, 2024 5:00am SENIOR CARE LAB WORK December 05, 2024 4:00am SENIOR CARE LAB WORK December 27 5:00am Chief Complaint Admit Date SENIOR CARE LAB WORK November 10, 2024 9:46am SENIOR CARE LAB WORK November 30, 2024 5:00am SENIOR CARE LAB WORK December 05, 2024 4:00am SENIOR CARE LAB WORK December 27 5:00am SENIOR CARE LAB WORK February 07, 2025 5: 00am Chief Complaint Admit Date SENIOR CARE LAB WORK December 27 5:00am SENIOR CARE LAB WORK February 07, 2025 5: 00am SENIOR CARE LAB WORK February 26, 2025 4 :00am Reason for Referral Specialty Diagnoses / Procedures Referred By Contac t Referred To Contact Oral Surgery Diagnoses Dental caries Jared Guzman [address] [place] [address] [facility] ORAL SURGERY [address] [place] [address] Referral ID Status Reason Start Date Expiration Date V isits Requested Visits Authorized [id number] Authorized 01/26/2023 01/27/2024 3 3 Scheduling Instructions Please call the server administrator [facility] at [facility] at to schedule an appointment if one was not made for you today. Comments EXT #9, 12 Specialty Diagnoses / Procedures Referred By Contac t Referred To Contact Caridad Evans MD [address] [place] [address] Referral ID Status Reason Start Date Expiration Date V isits Requested Visits Authorized [id number] Pending Review 1 1 Specialty Diagnoses / Procedures Referred By Contac t Referred To Contact Radiology Diagnoses Nausea with vomiting, unspecified Procedures NM gastric emptying solid Elda Reaves (Kelley) [address] [place] [address] Referral ID Status Reason Start Date Expiration Date V isits Requested Visits Authorized [id number] Authorized 11/24/2023 11/23/2024 3 3 Referral ID Status Reason Start Date Expiration Date V isits Requested Visits Authorized [id number] Pending Review 11/24/2023 11/23/2024 3 3 Specialty Diagnoses / Procedures Referred By Contac t Referred To Contact Radiology Diagnoses Lung nodule Procedures CT chest wo IV contrast Herber Ramos APRN - PROSTHODONTIST/EDUCATOR [address] [place] [address] Referral ID Status Reason Start Date Expiration Date V isits Requested Visits Authorized [id number] Authorized 02/11/2024 02/10/2025 1 1 Specialty Diagnoses / Procedures Referred By Joe t Referred To Contact Radiology Diagnoses Solitary pulmonary nodule Procedures CT chest wo IV contrast Herber Ramos, FLEET ADMINISTRATIVE ASSISTANT - PROSTHODONTIST/EDUCATOR [address] [place] [address] Referral ID Status Reason Start Date Expiration Date V isits Requested Visits Authorized [id number] Pending Review 02/11/2024 02/10/2025 1 1 Additional Source Comments INFORMATION SOURCE (unrecogn ized section and content) DATE CREATED AUTHOR 05/13/2018 [facility] DATE CREATED AUTHOR AUTHOR'S ORGANIZ ATION 05/18/2018 [facility] DATE CREATED AUTHOR AUTHOR'S ORGANIZ ATION 01/09/2019 [facility] DATE CREATED AUTHOR AUTHOR'S ORGANIZ ATION 11/29/2020 [facility] DATE CREATED AUTHOR AUTHOR'S ORGANIZ ATION 09/25/2021 [facility] DATE CREATED AUTHOR AUTHOR'S ORGANIZ ATION 02/04/2022 [facility] DATE CREATED AUTHOR AUTHOR'S ORGANIZ ATION 11/23/2023 [facility] DATE CREATED AUTHOR AUTHOR'S ORGANIZ ATION 09/13/2025 [facility] DATE CREATED AUTHOR AUTHOR'S ORGANIZ ATION 09/19/2025 [facility] (unrecognized sect ion and content) No Status Records Found Reason for Visit (unrecogniz ed section and content) Reason Comments Leg Pain patient had right AK A last week and has had pain in RLE - halfway sent for eval d/t bloodwork results Reason Comments Abdominal Pain Reason Comments Abdominal Pain Vaginal Bleeding Nausea Reason Comments Wound Check Patient sent over fo r evaluation for worsening leg infections, right lower leg is worse. he is being seen by wound care at [facility] already. Reason Comments Follow-up DM2 Reason Onset [...] . Nabil Hill, DO [address] [place] [address] [facility] 2e Telemetry [address] [phone] Referral ID Status Reason Start Date Expiration Date Visits Re quested Visits Authorized [id number] 1 1 Reason Comments Chest Pain Vomiting Specialty Diagnoses / Procedures Referred By Contac t Referred To Contact Diagnoses Chest pain Chest pain, unspecified type Procedures . Nabil Hill, DO [address] [place] [address] [facility] 2e Telemetry [address] [place] [address] Reason Onset Date Comments Care Coordination 07/05/2023 ED Nuance Lung Nodule Reason Comments Nausea Pt brought in by EMS from [facility] with nausea/vomiting x1 day. +MALCOLM. [...] . Nabil Hill, DO [address] [place] [address] [facility] Emergency Dept [address] [place] [address] Referral ID Status Reason Start Date Expiration Date Visits Re quested Visits Authorized [id number] 1 1 Reason Onset Date Comments Diabetes 08/30/2023 BGL Reason Onset Date Comments Diabetes 09/20/2023 BGL Specialty Diagnoses / Procedures Referred By Contac t Referred To Contact Diagnoses Hypoglycemia Procedures . Ricardo Spring MD [address] [facility] [address] [place] [address] [facility] Emergency Dept [address] [place] [address] Referral ID Status Reason Start Date Expiration Date Visits Re quested Visits Authorized [id number] 1 1 Reason Comments Hypoglycemia Specialty Diagnoses / Procedures Referred By Contac t Referred To Contact Diagnoses Hypoglycemia Procedures . Ricardo Spring MD [address] [facility] [address] [place] [address] [facility] Emergency Dept [address] [place] [address] Reason Onset Date Comments Advice Only 11/09/2023 Reason Onset Date Comments Diabetes 11/23/2023 BGL Reason Comments Flu Symptoms Specialty Diagnoses / Procedures Referred By Contac t Referred To Contact Radiology Diagnoses Nausea with vomiting, unspecified Procedures NM gastric emptying solid Elda Reaves (Kelley) [address] [facility] [place] [place] [address] Referral ID Status Reason Start Date Expiration Date V isits Requested Visits Authorized [id number] Authorized 11/24/2023 11/23/2024 3 3 Reason Onset Date Comments Diabetes 12/28/2023 BGL Reason Comments Nausea Vomiting Pt arrived by EMS fr [facility] due to N/V for 1 month. Upon [...] BGL Reason Comments Hypoglycemia Patient reports from [facility] for low blood sugar. Facility states that [...] Abdominal Pain Pt [facility]. Pt presents with abd pain, diarrhea, chest pain. Pt presents aox4 speaking in full and complete sentences. Chest Pain Nausea Specialty Diagnoses / Procedures Referred By Contac t Referred To Contact Diagnoses Acute cholecystitis Procedures . Grace Ackerman MD [address] [place] [address] Phone: tel: fax: [facility] Cardiac Progressive Care Unit PCU [address]E [address] [place] [address] Phone: tel: Referral ID Status Reason Start Date Expiration Date Visits Re quested Visits Authorized [id number] 1 1 Reason Onset Date Comments Diabetes [...] of gallbladder without cholecystitis without obstruction Procedures HI OFFICE/OUTPATIENT NEW HIGH MDM 60 MINUTES Rosy Ibarra, FLEET ADMINISTRATIVE ASSISTANT - PROSTHODONTIST/EDUCATOR [address] [place] [address] Phone: tel:[phone] fax:[phone] [facility] Gastroenterology - [place] [address] [place] [address] Phone: tel: fax: Referral ID Status Reason Start Date Expiration Date Visits Requested Visits Authorized [id number] Pending Review Specialty Services Required 12/01/2024 12/01/2025 [...] of right leg above knee (HCC) Procedures HI OFFICE/OUTPATIENT NEW MODERATE MDM 45 MINUTES Jared Guzman [address] [place] [address] Phone: tel: fax: [facility] Vascular - [place] [address] [facility] [address] [place] [address] Phone: tel: fax: Referral ID Status Reason Start Date Expiration Date Visits Requested Visits Authorized [id number] Pending Review Eval and Treat 01/24/2025 01/24/2026 [...] Inactive Member Role Status Dates Raj LEON CASE LOADER OPERATOR-C Attending Provider Active Team Status: Inactive Member Role Status Dates Jared Guzman Attending Provider Active Resin Coater Relationship Specialty Start Date End Date Jared Guzman [address] [place] [phone] PCP - General 04/25/19 Resin Coater Relationship Specialty Start Date End Date Jared Guzman [address] [place] [phone] PCP - General 04/25/19 Resin Coater Relationship Specialty Start Date End Date Jared Guzman [address] [place] [phone] PCP - General 04/25/19 Resin Coater Relationship Specialty Start Date End Date Jared Guzman [address] [place] [address] PCP - General 04/25/19 Resin Coater Relationship Specialty Start Date End Date Jared Guzman [address] [place] [address] PCP - General 04/25/19 Resin Coater Relationship Specialty Start Date End Date Jared Guzman [address] [place] [address] PCP - General 04/25/19 Resin Coater Relationship Specialty Start Date End Date Jared Guzman [address] [place] [address] PCP - General 04/25/19 Resin Coater Relationship Specialty Start Date End Date Jared Guzman [address] [place] [phone] PCP - General 04/25/19 Resin Coater Relationship Specialty Start Date End Date Jared Guzman [address] [place] [phone] PCP - General 04/25/19 Resin Coater Relationship Specialty Start Date End Date Jared Guzman [address] [place] [address] PCP - General 04/25/19 Resin Coater Relationship Specialty Start Date End Date Jared Guzman [address] PCP - General 04/25/19 Resin Coater Relationship Specialty Start Date End Date Jared Guzman [address] PCP - General 04/25/19 Resin Coater Relationship Specialty Start Date End Date Jared Guzman [address] [place] [address] PCP - General 04/25/19 Resin Coater Relationship Specialty Start Date End Date Jared Guzman [address] [place] [address] PCP - General 04/25/19 Resin Coater Relationship Specialty Start Date End Date Jared Guzman [address] [place] [address] PCP - General 04/25/19 Resin Coater Relationship Specialty Start Date End Date Jared Guzman [address] [place] [phone] PCP - General 04/25/19 Resin Coater Relationship Specialty Start Date End Date Jared Guzman [address] [place] [phone] PCP - General 04/25/19 Resin Coater Relationship Specialty Start Date End Date Jared Guzman [address] [place] [phone] PCP - General 04/25/19 Resin Coater Relationship Specialty Start Date End Date Jared Guzman [address] [place] [phone] PCP - General 04/25/19 Resin Coater Relationship Specialty Start Date End Date Jared Guzman [address] [place] [phone] PCP - General 04/25/19 Resin Coater Relationship Specialty Start Date End Date Jared Guzman [address] [place] [phone] PCP - General 04/25/19 Resin Coater Relationship Specialty Start Date End Date Jared Guzman [address] [place] [phone] PCP - General 04/25/19 Resin Coater Relationship Specialty Start Date End Date Jared Guzman [address] [place] [address] PCP - General 04/25/19 Resin Coater Relationship Specialty Start Date End Date Jared Guzman [address] [place] [address] PCP - General 04/25/19 Resin Coater Relationship Specialty Start Date End Date Jared Guzman [address] [place] [address] PCP - General 04/25/19 Resin Coater Relationship Specialty Start Date End Date Jared Guzman [address] [place] [address] PCP - General 04/25/19 Resin Coater Relationship Specialty Start Date End Date Jared Guzman [address] [place] [address] PCP - General 04/25/19 Resin Coater Relationship Specialty Start Date End Date Jared Guzman [address] [place] [address] PCP - General 04/25/19 Resin Coater Relationship Specialty Start Date End Date Jared Guzman [address] [place] [address] PCP - General 04/25/19 Resin Coater Relationship Specialty Start Date End Date Jared Guzman [address] [place] [address] PCP - General 04/25/19 Resin Coater Relationship Specialty Start Date End Date Jared Guzman [address] [place] [phone] PCP - General 04/25/19 Resin Coater Relationship Specialty Start Date End Date Jared Guzman [address] [place] [phone] PCP - General 04/25/19 Resin Coater Relationship Specialty Start Date End Date Jared Guzman [address] [place] [phone] PCP - General 04/25/19 Resin Coater Relationship Specialty Start Date End Date Jared Guzman [address] [place] [phone] PCP - General 04/25/19 Resin Coater Relationship Specialty Start Date End Date Jared Guzman [address] [place] [phone] PCP - General 04/25/19 Resin Coater Relationship Specialty Start Date End Date Jared Guzman [address] [place] [phone] PCP - General 04/25/19 Resin Coater Relationship Specialty Start Date End Date Jared Guzman [address] [place] [address] PCP - General 04/25/19 Resin Coater Relationship Specialty Start Date End Date Jared Guzman [address] [place] [phone] PCP - General 04/25/19 Resin Coater Relationship Specialty Start Date End Date Jared Guzman [address] [place] [phone] PCP - General 04/25/19 Resin Coater Relationship Specialty Start Date End Date Jared Guzman [address] [place] [address] PCP - General 04/25/19 Resin Coater Relationship Specialty Start Date End Date Jared Guzman [address] [place] [address] PCP - General 04/25/19 Resin Coater Relationship Specialty Start Date End Date Jared Guzman [address] [place] [address] PCP - General 04/25/19 Resin Coater Relationship Specialty Start Date End Date Jared Guzman [address] [place] [address] PCP - General 04/25/19 Resin Coater Relationship Specialty Start Date End Date Jaerd Guzman [address] [place] [address] PCP - General 04/25/19 [facility] Other Attendant 01/30/25 Resin Coater Relationship Specialty Start Date End Date Jared Guzman [address] [place] [address] PCP - General 04/25/19 Alejandro Mandel APRN - CNP [address] [place] [address] Nurse Practitioner Nurse Practitioner 02/01/25 [facility] Other Attendant 01/30/25 Team Status: Inactive [...] December 05, 2024 End: December 05, 2024 Resin Coater Relationship Specialty Start Date End Date Jared Guzman [address] [place] [phone] PCP - General 04/25/19 Alejandro Mandel APRN - CNP [address] [place] [address] Nurse Practitioner Nurse Practitioner 02/01/25 [facility] Other Attendant 01/30/25 Resin Coater Relationship Specialty Start Date End Date Jared Guzman [address] [place] [phone] PCP - General 04/25/19 Alejandro Mandel APRN - PROSTHODONTIST/EDUCATOR [address] [place] [address] Nurse Practitioner Nurse Practitioner 02/01/25 [facility] Other Attendant 01/30/25 Resin Coater Relationship Specialty Start Date End Date Jared Guzman [address] [place] [address] PCP - General 04/25/19 Alejandro Mandel APRN - PROSTHODONTIST/EDUCATOR [address] [place] [address] Nurse Practitioner Nurse Practitioner 02/01/25 [facility] Other Attendant 01/30/25 Team Status: Inactive Member Role Status Dates Jared LEON Attending Provider Active Sta rt: February 07, 2025 End: February 07, 2025 Team Status: Active Member Role Status Dates Jared LEON Attending Provider Active Sta rt: February 26, 2025 Resin Coater Relationship Specialty Start Date End Date Jared Guzman [address] [place] [address] PCP - General 04/25/19 Alejandro Mandel APRN - PROSTHODONTIST/EDUCATOR [address] [place] [address] Nurse Practitioner Nurse Practitioner 02/01/25 [facility] Other Attendant 01/30/25 Team Status: Inactive Member Role Status Dates Jared LEON Attending Provider Active Sta rt: February 26, 2025 End: February 26, 2025 Jared LEON Referring Provider Active Sta rt: February 26, 2025 End: February 26, 2025 Resin Coater Relationship Specialty Start Date End Date Jared Guzman [address] [place] [address] PCP - General 04/25/19 Alejandro Mandel APRN - PROSTHODONTIST/EDUCATOR [address] [place] [address] Nurse Practitioner Nurse Practitioner 02/01/25 [facility] Other Attendant 01/30/25 Resin Coater Relationship Specialty Start Date End Date Jared Guzman [address] [place] [address] PCP - General 04/25/19 Alejandro Mandel APRN - PROSTHODONTIST/EDUCATOR [address] [place] [id number] Nurse Practitioner Nurse Practitioner 02/01/25 [facility] Other Attendant 01/30/25 Resin Coater Relationship Specialty Start Date End Date Jared Guzman [address] [place] [address] PCP - General 04/25/19 Alejandro Mandel APRN - PROSTHODONTIST/EDUCATOR [address] [place] [address] Nurse Practitioner Nurse Practitioner 02/01/25 [facility] Other Attendant 01/30/25 Resin Coater Relationship Specialty Start Date End Date Jared Guzman [address] [place] [address] PCP - General 04/25/19 Alejandro Mandel FLEET ADMINISTRATIVE ASSISTANT - PROSTHODONTIST/EDUCATOR [address] [place] [address] Nurse Practitioner Nurse Practitioner 02/01/25 [facility] Other Attendant 01/30/25 Resin Coater Relationship Specialty Start Date End Date Jared Guzman [address] [place] [address] PCP - General 04/25/19 Alejandro Mandel FLEET ADMINISTRATIVE ASSISTANT - PROSTHODONTIST/EDUCATOR [address] [place] [id number] Nurse Practitioner Nurse Practitioner 02/01/25 [facility] Other Attendant 01/30/25 Resin Coater Relationship Specialty Start Date End Date Jared Guzman [address] [place] [address] PCP - General 04/25/19 Alejandro Mandel FLEET ADMINISTRATIVE ASSISTANT - PROSTHODONTIST/EDUCATOR [address] [place] [address] Nurse Practitioner Nurse Practitioner 02/01/25 [facility] Other Attendant 01/30/25 Resin Coater Relationship Specialty Start Date End Date Jared Guzman [address] [place] [address] PCP - General 04/25/19 Alejandro Mandel APRN - PROSTHODONTIST/EDUCATOR [address] [place] [address] Nurse Practitioner Nurse Practitioner 02/01/25 [facility] Other Attendant 01/30/25 Resin Coater Relationship Specialty Start Date End Date Jared Guzman [address] [place] [address] PCP - General 04/25/19 Alejandro Mandel APRN - PROSTHODONTIST/EDUCATOR [address] [place] [address] Nurse Practitioner Nurse Practitioner 02/01/25 [facility] Other Attendant 01/30/25 Resin Coater Relationship Specialty Start Date End Date Jared Guzman [address] [place] [address] PCP - General 04/25/19 Alejandro Mandel FLEET ADMINISTRATIVE ASSISTANT - PROSTHODONTIST/EDUCATOR [address] [place] [address] Nurse Practitioner Nurse Practitioner 02/01/25 [facility] Other Attendant 01/30/25 Resin Coater Relationship Specialty Start Date End Date Jared Guzman [address] [place] [address] PCP - General 04/25/19 Alejandro Mandel APRN - CNP [address] [place] [address] Nurse Practitioner Nurse Practitioner 02/01/25 [facility] Other Attendant 01/30/25 Resin Coater Relationship Specialty Start Date End Date Jared Guzman [address] [place] [address] PCP - General 04/25/19 Alejandro Mandel APRN - CNP [address] [place] [address] [address] [place] [phone] Nurse Practitioner Nurse Practitioner 02/01/25 [facility] Other Attendant 01/30/25 Resin Coater Relationship Specialty Start Date End Date Jared Guzman [address] [place] [address] PCP - General 04/25/19 Alejandro Mandel APRN - CNP [address] [place] [address] [address] [place] [phone] Nurse Practitioner Nurse Practitioner 02/01/25 [facility] Other Attendant 01/30/25 Scheduled Active and Recently [...] at 0900 0720 (Not Given - Provider: Suzanen Sen RN - Reason: NPO) 0900 (Given [...] used. 2018 (See Alternative - Provider: Margo Alxeis, PASTORA) ondansetron ODT (Zofran-ODT) disintegrating tablet 4 [...] RN) 0940 (Given - Provider: Kota Luque, PATSORA) atorvastatin (Lipitor) tablet 10 mg 10 [...] LPN) 0940 (Given - Provider: Kota Luque, PASTORA)2100 (Canceled [...] pain (7-10), moderate pain (4-6), Starting on Gaib 10/19/24 at 1124, If oral and IV [...] sedation for opioid reversal - MUST notify operations scheduler provider immediately after first dose, may give [...] BE BASED ON THE PRIMARY CLINICAL RECORDS. [employer] provides no warranty or guarantee of the accuracy or completeness of information in this document.
[2025-10-08 08:43] LABS: Albumin, Serum 3.6 g/dL (3.5-5.0); Anion Gap 9 (5-15); BUN 20 mg/dL (4-19); BUN/Creat Ratio 27.2 RATIO (10-20); Calcium,Total 8.7 mg/dL (7.6-11.0); Carbon Dioxide 28.1 mmol/L (21.0-32.0); Chloride 102 mmol/L (98-108); Glucose 236 mg/dL (70-99); Potassium 4.5 mmol/L (3.3-5.1)
== END ==
LOC: OLS.SANC 04:00
PROVIDERS: Referring Provider Internal Medicine; Visit Provider Internal Medicine
DX: E11.9 Type 2 diabetes mellitus without complications (principal); E78.5 Hyperlipidemia, unspecified; I10 Essential (primary) hypertension
CPT/HCPCS: 36415; 80069

== ENCOUNTER → 2025-10-17 05:00 | Outpatient (REF) | payer MEDICARE, MEDICAID, SELFPAY ==
--- OUTSIDE RECORDS SUMMARY | 2025-10-17 04:21 | XMS RPT_ITS | CCD ---
Author Organization [facility] Care Team Providers Care Data Warehouse Administrator Name Role Phone Kylah Luu Unavailable Unavailable RasKylah fuentes Unavailable Unavailable RASKYLAH FUENTES Unavailable Unavailable RASKYLAH FUENTES Unavailable Unavailable RASKYLAH FUENTES Unavailable Unavailable SARBJIT GARNER Unavailable Unavailable AARON, THEO Unavailable Unavailable MARINE, JAYSON Unavailable Unavailable BICAKODAK, VERA Unavailable Unavailable RASKYLAH FUENTES Unavailable Unavailable RASKYLAH FUENTES Unavailable Unavailable SARBJIT GARNER Unavailable Unavailable GATITO, TERRIE Unavailable Unavailable AMRINE, JAYSON Unavailable Unavailable GUERRERO, BRANDON Unavailable Unavailable RASKYLAH FUENTES Unavailable Unavailable SARBJIT GARNER Unavailable Unavailable RASKYLAH FUENTES Unavailable Unavailable RASKYLAH FUENTES Unavailable Unavailable JERRY DAVIS Unavailable Unavailable RASGINA, KYLAH Escobar Unavailable Unavailable MARINE, JAYSON Unavailable Unavailable GUERRERO, BRANDON Unavailable Unavailable MARINE, JAYSON Referring Unavailable RASKYLAH FUENTES Referring Unavailable Jarde Guzman Primary Care Provider [phone] Jared Guzman Primary Care Provider [phone] Jared Guzman Primary Care Provider [phone] Unavailable Primary Care Provider UnavailJared Miller Primary Care Provider Jared Guzman Primary Care Provider [phone] Jared Guzman Primary Care Provider ASRBJIT GARNER Primary Care Unavail able ELDA REAVES Attending Unavailable Alejandro Stephenson APRN, CNP Unavailable Jared Singh Attending Provider Unavailab le Katsaros OLS, Peter Referring Provider Unavailab le Katsaros OLS, Peter Attending Provider Unavailab le Katsaros OLS, Peter Referring Provider Unavailab le Katsaros OLS, Peter Attending Provider Unavailab le Katsaros OLS, Peter Referring Provider Unavailab le Mandel PRODUCT DISTRIBUTION SPECIALIST - KRANTHI, Alejandro Unavailable [phone] KATSAROS, PETER Primary Care Unavailable VICENTE MIXON [...] oral tablet (20 sources) Dihydropyridine Calcium Channel Anno Start: 01-12-2024 End: 10-23-2024 take 1 tablet [...] Active docusate sodium 50 mg / sennosides, prison 8.6 mg oral tablet (20 sources) take [...] mg, Oral, DAILY, Fir st dose on Gbai 06/15/19 at 1345 End: 11-25-2020 take 1 [...] inulin 200 mg / lactobacillus rhamnosus gg [id number] unt oral capsule (1 source) Start: 09-18-2020 [...] mouth spray 1 spray polyethylene glycol 3350 645110 mg / potassium chloride 2970 mg / sodium bicarbonate 6740 mg / sodium chloride 5860 mg / sodium sulfate 34030 mg powder for oral solution (1 source) [...] Taking at Discharge) 20 ml albumin human, prison 250 mg/ml injection (2 sources) Human Serum [...] ringers bolus castor oil 0.788 mg/mg / martiniquais balsam 0.087 mg/mg topical ointment (4 sources) Standardized Chemical Allergen Start: 01-17-2019 End: 09-17-2020 Balsam [place] Oil (VENELEX) OINT ointment Apply topically daily [...] 15 g Start: 09-18-2020 15 g, Oral, NE N, Low blood sugar, Starting Wed09/18/20 at [...] Start: 10-12-2023 End: 10-17-2023 250 Units, IntraCATHeter, NE N, line care, after blood draws and [...] tablet by mouth 0 Active lactobacillus acidophilus [id number] unt / pectin 100 mg oral tablet (20 sources) End: 01-11-2024 take 1 tablet by mouth in the morning Lactobacillus Acid-Pectin (Acidophilus/[place] Pectin) tablet Take 1 tablet by mouth [...] that apply): Intra-Abdominal Infection polyethylene glycol 3350 10539 mg powder for oral solution (20 sources) [...] suspension 15 g technetium Tc-99m sulfur colloid (Nycomed-VT) radio-isotope solution 1.1 millicurie (2 sources) Start: [...] hours, First dose on Wed10/11/23 at 0000, ADD-[place] bag, Suspected Indication (Select all that apply): [...] sources) Long-term current use of antibiotic; 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: [emt intermediate (current) use of antibiotics] 10-12-2023 Episodic Other aftercare (1 source) Other intermodal dispatcher (current) drug therapy; 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: [Other intermodal dispatcher (current) drug therapy] Onset: 09-13-20 Episodic Other [...] [Body mass index (BMI) 50.0-59.9, adult (FORM[facility]LY [facility])] Onset: 06-07-20 Chronic Other nutritional; endocrine; and metabolic disorders (2 sources) Body mass index (BMI) 45.0-49.9, adult; 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: [Body mass index (BMI) 45.0-49.9, adult ([facility])] Onset: 04-06-20 Chronic Other screening for suspected [...] 3 06-28-2023 Episodic Other aftercare (5 sources) emt intermediate (current) use of insulin; 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: [Other group home (current) drug therapy] Onset: 8 Episodic Other [...] (3 sources) PAD (peripheral artery disease) ([facility]) 02-01-2025 Unclassified (1 source) Obesity, class 3 ([facility]); 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: [Obesity, class 3 ([facility])] Onset: 5 Results Test Name Value Interpretation Reference Range Facility 36 09-11-2025 36 Spoke to nurse and advised to no longer send. Nurse voiced understanding [address] 09-06-2025 36 Diabetes managed by facility provider, no need to send [facility] BGL. Thank you [address] 09-05-2025 36 Patient's BGL Normal [facility] Microalb:Creat Ratio,Random URon 08-28-2025 Creatinine [Mass/Vol] 84.40 mg/dL Normal 28.00- 217.0 0 [facility] Comment on above: Performed By: #### L 502.0250 #### [facility] [address] [place], [address] MALB:CREAT 68.1 mg/g CRE High <30 mg/g CRE [facility] Comment on above: Performed By: #### L 502.0250 #### [facility] [address] [place], [address] MICROALBUMIN,UR 57.5 mg/L Normal <20 mg/L [facility] Comment on above: Performed By: #### L 502.0250 #### [facility] [address] [place], [address] Renal Profileon 08-28-2025 Albumin [Mass/Vol] 3.5 g/dL Normal 3.5-5.0 [facility] Comment on above: Order Comment: 103-1 Performed By: #### L 100.0500, L500.4050 #### [facility] [address] [place], [address] BUN/CRE 23.8 RATIO High - [facility] Comment on above: Order Comment: 103-1 Performed By: #### L 100.0500, L500.4050 #### [facility] [address] [place], [address] Calcium [Mass/Vol] 8.8 mg/dL Normal 7.6-11.0 [facility] Comment on above: Order Comment: 103-1 Performed By: #### L 100.0500, L500.4050 #### [facility] [address] [place], [address] Chloride [Moles/Vol] 99 mmol/L Normal 98-108 [facility] Comment on above: Order Comment: 103-1 Performed By: #### L 100.0500, L500.4050 #### [facility] [address] [place], [address] CO2 [Moles/Vol] 26.9 mmol/L Normal 21.0-32.0 [facility] Comment on above: Order Comment: 103-1 Performed By: #### L 100.0500, L500.4050 #### [facility] [address] [place], [address] Creatinine [Mass/Vol] 0.69 mg/dL Low 0.70-1.20 [facility] Comment on above: Order Comment: 103-1 Performed By: #### L 100.0500, L500.4050 #### [facility] [address] [place], [address] GAP 10 Normal 5-15 [facility] Comment on above: Order Comment: 103-1 Performed By: #### L 100.0500, L500.4050 #### [facility] [address] [place], [address] GFR/1.73 sq M.predicted among non-blacks MDRD (S/P/Bld) [Vol rate/Area] 101 mL/min/{1.73_m2} Normal >60 [facility] Comment on above: Order Comment: 103- Result Comment: mL/m in/1.73m2 CKD-EPI Creatinine Equation (2020) Performed By: #### L 100.0500, L500.4050 #### [facility] [address] [place], [address] Glucose [Mass/Vol] 314 mg/dL High 70-99 [facility] Comment on above: Order Comment: 103-1 Performed By: #### L 100.0500, L500.4050 #### [facility] [address] [place], [address] Potassium [Moles/Vol] 4.3 mmol/L Normal 3.3-5.1 [facility] Comment on above: Order Comment: 103-1 Result Comment: Hemo lysis present, Results??could be affected. ?? Performed By: #### L 100.0500, L500.4050 #### [facility] [address] [place], [address] Sodium [Moles/Vol] 136 mmol/L Normal 133-145 [facility] Comment on above: Order Comment: 103-1 Performed By: #### L 100.0500, L500.4050 #### [facility] [address] [place], [address] Urea nitrogen [Mass/Vol] 16 mg/dL Normal 4-19 [facility] Comment on above: Order Comment: 103-1 Performed By: #### L 100.0500, L500.4050 #### [facility] [address] [place], [address] Basic Metabolic Profile (BMP )on 08-23-2025 BUN/CRE 22.2 RATIO High 10- [facility] Comment on above: Order Comment: 103-1 Performed By: #### L 100.0500, L500.4050 #### [facility] [address] [place], [address] Calcium [Mass/Vol] 8.6 mg/dL Normal 7.6-11.0 [facility] Comment on above: Order Comment: 103-1 Performed By: #### L 100.0500, L500.4050 #### [facility] [address] [place], [address] Chloride [Moles/Vol] 102 mmol/L Normal 98-108 [facility] Comment on above: Order Comment: 103-1 Performed By: #### L 100.0500, L500.4050 #### [facility] [address] [place], [address] CO2 [Moles/Vol] 29.8 mmol/L Normal 21.0-32.0 [facility] Comment on above: Order Comment: 103-1 Performed By: #### L 100.0500, L500.4050 #### [facility] [address] [place], [address] Creatinine [Mass/Vol] 0.63 mg/dL Low 0.70-1.20 [facility] Comment on above: Order Comment: 103-1 Performed By: #### L 100.0500, L500.4050 #### [facility] [address] [place], [address] GAP 8 Normal 5-15 [facility] Comment on above: Order Comment: 103-1 Performed By: #### L 100.0500, L500.4050 #### [facility] [address] [place], [address] GFR/1.73 sq M.predicted among non-blacks MDRD (S/P/Bld) [Vol rate/Area] 103 mL/min/{1.73_m2} Normal >60 [facility] Comment on above: Order Comment: 103-1 Result Comment: mL/m in/1.73m2 CKD-EPI Creatinine Equation (2020) Performed By: #### L 100.0500, L500.4050 #### [facility] [address] [place], [address] Glucose [Mass/Vol] 122 mg/dL High 70-99 [facility] Comment on above: Order Comment: 103-1 Performed By: #### L 100.0500, L500.4050 #### [facility] [address] [place], [address] Potassium [Moles/Vol] 4.2 mmol/L Normal 3.3-5.1 [facility] Comment on above: Order Comment: 103-1 Performed By: #### L 100.0500, L500.4050 #### [facility] [address] [place], [address] Sodium [Moles/Vol] 140 mmol/L Normal 133-145 [facility] Comment on above: Order Comment: 103-1 Performed By: #### L 100.0500, L500.4050 #### [facility] [address] [place], [address] Urea nitrogen [Mass/Vol] 14 mg/dL Normal 4-19 [facility] Comment on above: Order Comment: 103-1 Performed By: #### L 100.0500, L500.4050 #### [facility] [address] [place], [address] CBC-Complete Blood Cnt No Di ffon 08-23-2025 Erythrocyte distribution width (RBC) [Ratio] 15.8 % High 11.6-14.6 [facility] Comment on above: Order Comment: 103-1 Performed By: #### L 100.0500, L500.4050 #### [facility] [address] [place], [address] Hematocrit (Bld) [Volume fraction] 35.7 % Low 37-47 [facility] Comment on above: Order Comment: 103-1 Performed By: #### L 100.0500, L500.4050 #### [facility] [address] [place], [address] Hemoglobin (Bld) [Mass/Vol] 10.8 g/dL Low 12.0-15.0 [facility] Comment on above: Order Comment: 103-1 Performed By: #### L 100.0500, L500.4050 #### [facility] [address] [place], [address] MCH (RBC) [Entitic mass] 26.3 pg Low 27.0-32.0 [facility] Comment on above: Order Comment: 103-1 Performed By: #### L 100.0500, L500.4050 #### [facility] [address] [place], [address] MCHC (RBC) [Mass/Vol] 30.3 g/dL Low 32-36 [facility] Comment on above: Order Comment: 103-1 Performed By: #### L 100.0500, L500.4050 #### [facility] [address] [place], [address] MCV (RBC) [Entitic vol] 87.1 fL Normal 81-99 [facility] Comment on above: Order Comment: 103-1 Performed By: #### L 100.0500, L500.4050 #### [facility] [address] [place], [address] Platelet mean volume (Bld) [Entitic vol] 10.0 fL Normal 6.2-12.0 [facility] Comment on above: Order Comment: 103-1 Performed By: #### L 100.0500, L500.4050 #### [facility] [address] [place], [address] Platelets (Bld) [#/Vol] 328 10*3/uL Normal 150-450 [facility] Comment on above: Order Comment: 103-1 Performed By: #### L 100.0500, L500.4050 #### [facility] [address] [place], [address] RBC (Bld) [#/Vol] 4.10 10*6/uL Low 4.2-5.4 [facility] Comment on above: Order Comment: 103-1 Performed By: #### L 100.0500, L500.4050 #### [facility] [address] [place], [address] RDW SD 50.4 fl High 35.1-43.9 [facility] Comment on above: Order Comment: 103-1 Performed By: #### L 100.0500, L500.4050 #### [facility] [address] [place], [address] WBC (Bld) [#/Vol] 6.6 10*3/uL Normal 4.4-11.0 [facility] Comment on above: Order Comment: 103-1 Performed By: #### L 100.0500, L500.4050 #### [facility] [address] [place], [address] 36on 07-30-2025 36 Faxed Recent Chart n ote to [employer] [facility] 36on 07-27-2025 36 Lease fax last OV to facility, [place] [facility] Progress Noteon 07-26-[address] [facility] 36on 07-24-2025 36 Spoke with nurse Johan clark at the facility. Confirmed the appointment date and time. Agrees to bring recommended documents. The PCP is Dr Jared Guzman [facility] [address] [facility] 36on 07-23-2025 [address] [facility] 36 Spoke with PASTORA Barrera. She verbalized and understand below TE. [facility] 36on 07-20-[address] [facility] 36on 07-19-2025 36 Scanned, see in the media tab. [facility] 36 Called to the facili ty, said they will fax it. [facility] Basic Metabolic Profile (BMP )on 07-19-2025 BUN/CRE 20.9 RATIO High 10-20 [facility] Comment on above: Order Comment: 103-1 Performed By: #### L 100.0500, L500.4050 #### [facility] [address] [place], [address] Calcium [Mass/Vol] 8.8 mg/dL Normal 7.6-11.0 [facility] Comment on above: Order Comment: 103-1 Performed By: #### L 100.0500, [id number] #### [facility] [address] [place], [address] Chloride [Moles/Vol] 103 mmol/L Normal 98-108 [facility] Comment on above: Order Comment: 103-1 Performed By: #### L 100.0500, L500.4050 #### [facility] [address] [place], [address] CO2 [Moles/Vol] 25.9 mmol/L Normal 21.0-32.0 [facility] Comment on above: Order Comment: 103-1 Performed By: #### L 100.0500, L500.4050 #### [facility] [address] [place], [address] Creatinine [Mass/Vol] 0.71 mg/dL Normal 0.70-1.20 [facility] Comment on above: Order Comment: 103-1 Performed By: #### L 100.0500, L500.4050 #### [facility] [address] [place], [address] GAP 10 Normal 5-15 [facility] Comment on above: Order Comment: 103-1 Performed By: #### L 100.0500, [id number] #### [facility] [address] [place], [address] GFR/1.73 sq M.predicted among non-blacks MDRD (S/P/Bld) [Vol rate/Area] 99 mL/min/{1.73_m2} Normal >60 [facility] Comment on above: Order Comment: 103-1 Result Comment: mL/m in/1.73m2 CKD-EPI Creatinine Equation (2020) Performed By: #### L 100.0500, L500.4050 #### [facility] [address] [place], [address] Glucose [Mass/Vol] 62 mg/dL Low 70-99 [facility] Comment on above: Order Comment: 103-1 Performed By: #### L 100.0500, L500.4050 #### [facility] [address] [place], [address] Potassium [Moles/Vol] 4.3 mmol/L Normal 3.3-5.1 [facility] Comment on above: Order Comment: 103-1 Performed By: #### L 100.0500, L500.4050 #### [facility] [address] [place], [address] Sodium [Moles/Vol] 139 mmol/L Normal 133-145 [facility] Comment on above: Order Comment: 103-1 Performed By: #### L 100.0500, L500.4050 #### [facility] [address] [place], [address] Urea nitrogen [Mass/Vol] 15 mg/dL Normal 4-19 [facility] Comment on above: Order Comment: 103-1 Performed By: #### L 100.0500, L500.4050 #### [facility] [address] [place], [address] CBC-Complete Blood Cnt No Di ffon 07-19-2025 Erythrocyte distribution width (RBC) [Ratio] 14.5 % Normal 11.6-14.6 [facility] Comment on above: Order Comment: 103-1 Performed By: #### L 100.0500, L500.4050 #### [facility] [address] [place], [address] Hematocrit (Bld) [Volume fraction] 38.0 % Normal 37-47 [facility] Comment on above: Order Comment: 103-1 Performed By: #### L 100.0500, L500.4050 #### [facility] [address] [place], [address] Hemoglobin (Bld) [Mass/Vol] 11.8 g/dL Low 12.0-15.0 [facility] Comment on above: Order Comment: 103-1 Performed By: #### L 100.0500, L500.4050 #### [facility] [address] [place], [address] MCH (RBC) [Entitic mass] 25.7 pg Low 27.0-32.0 [facility] Comment on above: Order Comment: 103-1 Performed By: #### L 100.0500, L500.4050 #### [facility] [address] [place], [address] MCHC (RBC) [Mass/Vol] 31.1 g/dL Low 32-36 [facility] Comment on above: Order Comment: 103-1 Performed By: #### L 100.0500, L500.4050 #### [facility] [address] [place], [address] MCV (RBC) [Entitic vol] 82.6 fL Normal 81-99 [facility] Comment on above: Order Comment: 103-1 Performed By: #### L 100.0500, L500.4050 #### [facility] [address] [place], [address] Platelet mean volume (Bld) [Entitic vol] 9.5 fL Normal 6.2-12.0 [facility] Comment on above: Order Comment: 103-1 Performed By: #### L 100.0500, L500.4050 #### [facility] [address] [place], [address] Platelets (Bld) [#/Vol] 411 10*3/uL Normal 150-450 [facility] Comment on above: Order Comment: 103-1 Performed By: #### L 100.0500, L500.4050 #### [facility] [address] [place], [address] RBC (Bld) [#/Vol] 4.60 10*6/uL Normal 4.2-5.4 [facility] Comment on above: Order Comment: 103-1 Performed By: #### L 100.0500, L500.4050 #### [facility] [address] [place], [address] RDW SD 43.6 fl Normal 35.1-43.9 [facility] Comment on above: Order Comment: 103-1 Performed By: #### L 100.0500, L500.4050 #### [facility] [address] [place], [place], [address] WBC (Bld) [#/Vol] 10.0 10*3/uL Normal 4.4-11.0 [facility] Comment on above: Order Comment: 103-1 Performed By: #### L 100.0500, L500.4050 #### [facility] [address] [place], [address] 36on 07-18-2025 36 Left a VM to faxed u s the MAR and med list. Normal [facility] 36 Patient's BGL Normal [facility] Urine Cultureon 07-13-2025 [facility] #4 Organism is too fastidious for routine susceptibility studies. Escherichia coli [place] Count 80,000-100,000 Proteus mirabilis Proteus mirabilis SWAR [place] Count 25,000-50,000 Staphylococcus warneri [place] Count 25,000-50,000 Escherichia coli: REACTION Globicatella sanguinis [...] S Vancomycin Islt TULIO 1 S Normal [facility] Comment on above: Performed By: #### L 100.0500, L500.4050 #### [facility] [address] [place], [address] Basic Metabolic Profile (BMP )on 07-12-2025 BUN/CRE 28.4 RATIO High 10-20 [facility] Comment on above: Order Comment: UNKNO WN METHOD OF COLLECTION CLEAN CATCH Performed By: #### M 100.2200, L400.0001 #### [facility] [address] [place], [address] Calcium [Mass/Vol] 8.5 mg/dL Normal 7.6-11.0 [facility] Comment on above: Order Comment: UNKNO WN METHOD OF COLLECTION CLEAN CATCH Performed By: #### M 100.2200, L400.0001 #### [facility] [address] [place], [address] Chloride [Moles/Vol] 99 mmol/L Normal 98-108 [facility] Comment on above: Order Comment: UNKNO WN METHOD OF COLLECTION CLEAN CATCH Performed By: #### M 100.2200, L400.0001 #### [facility] [address] [place], [address] CO2 [Moles/Vol] 27.3 mmol/L Normal 21.0-32.0 [facility] Comment on above: Order Comment: UNKNO WN METHOD OF COLLECTION CLEAN CATCH Performed By: #### M 100.2200, L400.0001 #### [facility] [address] [place], [address] Creatinine [Mass/Vol] 0.65 mg/dL Low 0.70-1.20 [facility] Comment on above: Order Comment: UNKNO WN METHOD OF COLLECTION CLEAN CATCH Performed By: #### M 100.2200, L400.0001 #### [facility] [address] [place], [address] GAP 10 Normal 5-15 [facility] Comment on above: Order Comment: UNKNO WN METHOD OF COLLECTION CLEAN CATCH Performed By: #### M 100.2200, [id number] #### [facility] [address] [place], [address] GFR/1.73 sq M.predicted among non-blacks MDRD (S/P/Bld) [Vol rate/Area] 102 mL/min/{1.73_m2} Normal >60 [facility] Comment on above: Order Comment: UNKNO WN METHOD OF COLLECTION CLEAN CATCH Result Comment: mL/m in/1.73m2 CKD-EPI Creatinine Equation (2020) Performed By: #### M 100.2200, L400.0001 #### [facility] [address] [place], [address] Glucose [Mass/Vol] 76 mg/dL Normal 70-99 [facility] Comment on above: Order Comment: UNKNO WN METHOD OF COLLECTION CLEAN CATCH Performed By: #### M 100.0, L400.0001 #### [facility] [address] [place], [address] Potassium [Moles/Vol] 4.2 mmol/L Normal 3.3-5.1 [facility] Comment on above: Order Comment: UNKNO WN METHOD OF COLLECTION CLEAN CATCH Performed By: #### M 100.2200, [id number] #### [facility] [address] [place], [address] Sodium [Moles/Vol] 137 mmol/L Normal 133-145 [facility] Comment on above: Order Comment: UNKNO WN METHOD OF COLLECTION CLEAN CATCH Performed By: #### M 100.2200, L400.0001 #### [facility] [address] [place] [place], [address] Urea nitrogen [Mass/Vol] 18 mg/dL Normal 4-19 [facility] Comment on above: Order Comment: UNKNO WN METHOD OF COLLECTION CLEAN CATCH Performed By: #### M 100.2200, L400.0001 #### [facility] [address] [place], [address] CBC-Complete Blood Cnt No Di ffon 07-12-2025 Erythrocyte distribution width (RBC) [Ratio] 14.3 % Normal 11.6-14.6 [facility] Comment on above: Order Comment: UNKNO WN METHOD OF COLLECTION CLEAN CATCH Performed By: #### M 100.2200, L400.0001 #### [facility] [address] [place], [address] Hematocrit (Bld) [Volume fraction] 34.8 % Low 37-47 [facility] Comment on above: Order Comment: UNKNO WN METHOD OF COLLECTION CLEAN CATCH Performed By: #### M 100.2200, L400.0001 #### [facility] [address] [place], [address] Hemoglobin (Bld) [Mass/Vol] 10.8 g/dL Low 12.0-15.0 [facility] Comment on above: Order Comment: UNKNO WN METHOD OF COLLECTION CLEAN CATCH Performed By: #### M 100.2200, L400.0001 #### [facility] [address] [place], [address] MCH (RBC) [Entitic mass] 26.2 pg Low 27.0-32.0 [facility] Comment on above: Order Comment: UNKNO WN METHOD OF COLLECTION CLEAN CATCH Performed By: #### M 100.2200, L400.0001 #### [facility] [address] [place], [address] MCHC (RBC) [Mass/Vol] 31.0 g/dL Low 32-36 [facility] Comment on above: Order Comment: UNKNO WN METHOD OF COLLECTION CLEAN CATCH Performed By: #### M 100.2200, L400.0001 #### [facility] [address] [place], [address] MCV (RBC) [Entitic vol] 84.5 fL Normal 81-99 [facility] Comment on above: Order Comment: UNKNO WN METHOD OF COLLECTION CLEAN CATCH Performed By: #### M 100.2200, L400.0001 #### [facility] [address] [place], [address] Platelet mean volume (Bld) [Entitic vol] 10.8 fL Normal 6.2-12.0 [facility] Comment on above: Order Comment: UNKNO WN METHOD OF COLLECTION CLEAN CATCH Performed By: #### M 100.0, L400.0001 #### [facility] [address] [place], [address] Platelets (Bld) [#/Vol] 316 10*3/uL Normal 150-450 [facility] Comment on above: Order Comment: UNKNO WN METHOD OF COLLECTION CLEAN CATCH Performed By: #### M 100.0, L400.0001 #### [facility] [address] [place], [address] RBC (Bld) [#/Vol] 4.12 10*6/uL Low 4.2-5.4 [facility] Comment on above: Order Comment: UNKNO WN METHOD OF COLLECTION CLEAN CATCH Performed By: #### M 100.2200, L400.0001 #### [facility] [address] [place], [address] RDW SD 44.1 fl High 35.1-43.9 [facility] Comment on above: Order Comment: UNKNO WN METHOD OF COLLECTION CLEAN CATCH Performed By: #### M 100.2200, L400.0001 #### [facility] [address] [place], [address] WBC (Bld) [#/Vol] 11.9 10*3/uL High 4.4-11.0 [facility] Comment on above: Order Comment: UNKNO WN METHOD OF COLLECTION CLEAN CATCH Performed By: #### M 100.2200, L400.0001 #### [facility] [address] [place], [address] No Panel InformationOrdered By: Shirley Graves on 07-11-2025 P Lynn 68 degrees [employer] Work Phone: NE Interval 182 ms [employer] Work Phone: QRS Lynn -33 degrees [employer] Work Phone: QRSD Interval 113 ms [employer] Phone: [phone] QT Interval 420 ms [employer] Phone: QTC Interval 491 ms [employer] Work Phone: T Wave Lynn 59 degrees [employer] Phone: [phone] [employer] Phone: No Panel Informationon 07-11 Shirley Graves D O - 07/11/2025 IMPRESSION: Sinus rhythm Abnormal R-wave progression, late transition Left ventricular hypertrophy Borderline prolonged QT interval Electronically Signed On 07-11-2025 00:56:44 EDT by Shirley Graves [facility] Vital signsOrdered By: Oscar Graves on 07-11-2025 Heart rate 82 /min bpm [employer] Phone: [phone] BETA HYDROXYBUTYRATEon 07-10 BETA HYDROXYBUTYRATE 7.3 mg/dL High <=2.8 [facility] [employer] [facility] Comment on above: Performed By: #### L AB17, LAB99, [id number], [id number] ####Shellfish Weigher: KEMAR ABEBE ([id number])[facility] (SBHLAB)[address] [place] [address] BLOOD GAS, VENOUSon 07-10-20 25 AMOUNT OF OXYGEN 2L Normal [facility] [employer] [facility] Comment on above: Result Comment: MARIE Doshi COMMENTS:Assessment of oxygenation is best done with an arterial blood gas determination. Reference ranges for pO2, bicarbonate, and base excess are for mixed venous blood. Specimens drawn from a peripheral vein will often have higher values. Performed By: #### L AB79 ####Shellfish Weigher: KEMAR ABEBE ([id number])[facility] (SBHLAB)[address] Base excess Calc (BldV) [Moles/Vol] 6.8 mmol/L High -3.0-3.0 [facility] Comment on above: Performed By: #### L AB79 ####Shellfish Weigher: KEMAR ABEBE ([id number])[facility]ITALA [facility] (SBHLAB)[address] CO2 [Moles/Vol] 35.4 mmol/L High 23.0-30.0 [facility] Comment on above: Performed By: #### L AB79 ####Shellfish Weigher: KEMAR ABEBE ([id number])[facility] (SBHLAB)[address] [place] [address] [place] HCO3 (Bld) [Moles/Vol] 33.6 mmol/L High 21.0-30.0 [facility] Comment on above: Performed By: #### L AB79 ####Shellfish Weigher: KEMAR ABEBE ([id number])[facility] (SB[facility])[address] Hemoglobin (Bld) [Mass/Vol] 12.9 g/dL Normal Screen only [facility] Comment on above: Performed By: #### L AB79 ####Shellfish Weigher: KEMAR ABEBE ([id number])[facility] (SBHLAB)[address] [place] [address] [place] OXYGEN (MM HG) IN VENOUS BLOOD 73.0 mm Hg Normal [facility] Comment on above: Performed By: #### L AB79 ####Shellfish Weigher: KEMAR ABEBE ([id number])[facility] (SBHLAB)[address] OXYGEN SATURATION (%) IN VENOUS BLOOD 93.3 % Normal [facility] Comment on above: Performed By: #### L AB79 ####Shellfish Weigher: KEMAR ABEBE ([id number])[facility] (SBHLAB)[address] PCO2, FARIBA 58.4 mm Hg High 40.0-55.0 [facility] Comment on above: Performed By: #### L AB79 ####Shellfish Weigher: KEMAR ABEBE ([id number])[facility] [place] (SBHLAB)[address] PH VENOUS 7.378 Normal 7.320-7.420 [facility] Comment on above: Performed By: #### L AB79 ####Shellfish Weigher: KEMAR ABEBE ([id number])[facility] [place] (SBHLAB)[address] SOURCE OF OXYGEN Nasal Cannula (LPM) Normal [facility] Comment on above: Performed By: #### L AB79 ####Shellfish Weigher: KEMAR ABEBE ([id number])[facility] [place] (SBHLAB)[address] CBC W Auto Differential pane l (Bld)on 07-10-2025 Basophils (Bld) [#/Vol] 0 10*3/uL 0.0 - 0.2 10*3/uL [facility] Basophils/100 WBC (Bld) 0.2 % 0.0 - 2.0 % [facility] Eosinophils (Bld) [#/Vol] 0 10*3/uL 0.0 - 0.5 10*3/uL [facility] Eosinophils/100 WBC (Bld) 0.1 % 0.0 - 6.0 % [facility] Erythrocyte distribution width (RBC) [Ratio] 14.7 % 11.5 - 15.0 % [facility] [employer] Hematocrit (Bld) [Volume fraction] 36.8 % Male: 40.0-52.0 ; Female: 35.0-47.0 [facility] Hemoglobin (Bld) [Mass/Vol] 11.6 g/dL Low 11.7 - 18.0 g/dL [facility] Immature granulocytes (Bld) [#/Vol] 0.1 10*3/uL High NINF - 0.1 10*3/uL [facility] Immature granulocytes/100 WBC (Bld) 0.6 % 0.0 - 2.0 % [facility] Interpretation and review of laboratory results Abnormal [facility] Lymphocytes (Bld) [#/Vol] 1 10*3/uL 1.0 - 4.3 10*3/uL [facility] Lymphocytes/100 WBC (Bld) 7.5 % Low 15.0 - 45.0 % [facility] MCH (RBC) [Entitic mass] 26.3 pg 26.0 - 34.0 pg [facility] MCHC (RBC) [Mass/Vol] 31.5 % 30.5 - 36.0 % [facility] MCV (RBC) [Entitic vol] 83.4 fL 77.0 - 99.0 fL [facility] Monocytes (Bld) [#/Vol] 0.5 10*3/uL 0.0 - 0.9 10*3/uL [facility] Monocytes/100 WBC (Bld) 3.9 % Low 5.0 - 13.0 % [facility] Neutrophils (Bld) [#/Vol] 11.4 10*3/uL High 1.8 - 7.5 10*3/uL [facility] Neutrophils/100 WBC (Bld) 87.7 % High 38.0 - 82.0 % [facility] Nucleated RBC/100 WBC (Bld) [Ratio] 0 % [facility] Platelet mean volume (Bld) [Entitic vol] 9.7 fL 9.0 - 12.7 fL [facility] Platelets (Bld) [#/Vol] 317 10*3/uL 140 - 440 10*3/uL [facility] RBC (Bld) [#/Vol] 4.41 10*6/uL Male: 4.40-5.90; Female: 3.80-5.20 [facility] WBC (Bld) [#/Vol] 12.9 10*3/uL High 3.6 - 10.7 10*3/uL [facility] CBC WITH AUTO DIFFERENTIALon 07-10-2025 Basophils (Bld) [#/Vol] 0.0 10*3/uL Normal 0.0-0.2 [facility] Comment on above: Performed By: #### L [id number] ####Shellfish Weigher: KEMAR LUDWIGSAAD ([id number])[facility] (SBHLAB)[address] Basophils/100 WBC (Bld) 0.2 % Normal 0.0-2.0 [facility] Comment on above: Performed By: #### L [id number] ####Shellfish Weigher: KEMAR LUDWIGSAAD ([id number])[facility] [place] (SB[facility]AB)[address] Eosinophils (Bld) [#/Vol] 0.0 10*3/uL Normal 0.0-0.5 [facility] Comment on above: Performed By: #### L [id number] ####Shellfish Weigher: KEMAR ABEBE ([id number])[facility] (SBHLAB)[address] Eosinophils/100 WBC (Bld) 0.1 % Normal 0.0-6.0 [facility] Comment on above: Performed By: #### L [id number] ####Shellfish Weigher: KEMAR LUDWIGSAAD ([id number])[facility] [place] (SBHLAB)[address] [place] [address] Erythrocyte distribution width (RBC) [Ratio] 14.7 % Normal 11.5-15.0 [facility] Comment on above: Performed By: #### L [id number] ####Shellfish Weigher: KEMAR LUDWIGSAAD ([id number])[facility] [place] (SBHLAB)[address] [place] [address] Hematocrit (Bld) [Volume fraction] 36.8 % Normal Male: 40.0-52.0 ; Female: 35.0-47.0 [facility] Comment on above: Performed By: #### L [id number] ####Shellfish Weigher: KEMAR ABEBE ([id number])[facility] (SBHLAB)[address] Hemoglobin (Bld) [Mass/Vol] 11.6 g/dL Low 11.7-18.0 [facility] Comment on above: Performed By: #### L [id number] ####Shellfish Weigher: KEMAR ABEBE ([id number])[facility] (SBHLAB)[address] IMMATURE GRANS % 0.6 % Normal 0.0-2.0 [facility] Comment on above: Performed By: #### L [id number] ####Shellfish Weigher: KEMAR ABEBE ([id number])[facility] [place] (SB[facility])[address] IMMATURE GRANS ABSOLUTE 0.1 10*3/uL High <0.1 [facility] Comment on above: Performed By: #### L [id number] ####Shellfish Weigher: KEMAR ABEBE ([id number])[facility] [place] (SB[facility])[address] Lymphocytes (Bld) [#/Vol] 1.0 10*3/uL Normal 1.0-4.3 [facility] Comment on above: Performed By: #### L [id number] ####Shellfish Weigher: KEMAR ABEBE ([id number])[facility] [place] ([facility])[address] Lymphocytes/100 WBC (Bld) 7.5 % Low 15.0-45.0 [facility] Comment on above: Performed By: #### L [id number] ####Shellfish Weigher: KEMAR ABEBE ([id number])[facility] [place] ([facility])[address] MCH (RBC) [Entitic mass] 26.3 pg Normal 26.0-34.0 [facility] Comment on above: Performed By: #### L [id number] ####Shellfish Weigher: KEMAR ABEBE ([id number])[facility] [place] (SB[facility])[address] MCHC 31.5 % Normal 30.5-36.0 [facility] Comment on above: Performed By: #### L [id number] ####Shellfish Weigher: KEMAR MOMINHiginioSAAD ([id number])[facility] (SBHLAB)[address] MCV (RBC) [Entitic vol] 83.4 fL Normal 77.0-99.0 [facility] Comment on above: Performed By: #### L [id number] ####Shellfish Weigher: KEMAR ANDRAE ([id number])[facility] (SBHLAB)[address] Monocytes (Bld) [#/Vol] 0.5 10*3/uL Normal 0.0-0.9 [facility] Comment on above: Performed By: #### L [id number] ####Shellfish Weigher: KEMAR LUDWIGSAAD ([id number])[facility] (SBHLAB)[address] Monocytes/100 WBC (Bld) 3.9 % Low 5.0-13.0 [facility] Comment on above: Performed By: #### L [id number] ####Shellfish Weigher: KEMAR LUDWIGSAAD ([id number])[facility] (SBHLAB)[address] NEUTROPHILS ABSOLUTE 11.4 10*3/uL High 1.8-7.[address] [facility] Comment on above: Performed By: #### L [id number] ####Shellfish Weigher: KEMAR MOMINZOIESAAD ([id number])[facility] (SBHLAB)[address] Neutrophils/100 WBC (Bld) 87.7 % High 38.0-82.0 [facility] Comment on above: Performed By: #### L [id number] ####Shellfish Weigher: KEMAR LUDWIGSAAD ([id number])[facility] (SBHLAB)[address] NRBC 0.0 /100 WBCs Normal 0.0-2.0 [facility] Comment on above: Performed By: #### L [id number] ####Shellfish Weigher: KEMAR ABEBE ([id number])[facility] [place] (SBHLAB)[address] Platelet mean volume (Bld) [Entitic vol] 9.7 fL Normal 9.0-12.7 [facility] Comment on above: Performed By: #### L [id number] ####Shellfish Weigher: KEMAR ABEBE ([id number])[facility] (SBHLAB)[address] [place] [address] Platelets (Bld) [#/Vol] 317 10*3/uL Normal 140-440 [facility] Comment on above: Performed By: #### L [id number] ####Shellfish Weigher: KEMAR ABEBE ([id number])[facility] (SBAB)[address] [place] [address] RBC (Bld) [#/Vol] 4.41 10*6/uL Normal Male: 4.40-5.90; Female: 3.80-5.20 [facility] Comment on above: Performed By: #### L [id number] ####Shellfish Weigher: KEMAR ABEBE ([id number])[facility] ([facility])[address] [place] [address] WBC (Bld) [#/Vol] 12.9 10*3/uL High 3.6-10.7 [facility] Comment on above: Performed By: #### L [id number] ####Shellfish Weigher: KEMAR ABEBE ([id number])[facility] ([facility] [place] [address] COMPLETE URINALYSIS WITH REF KAYE TO CULTUREon 07-10-2025 BACTERIA (#/HPF) IN URINE Few Abnormal Negative [facility] Comment on above: Performed By: #### L [id number] ####Shellfish Weigher: MARCELA LUCERO ([id number])[facility] ([facility])[address] [place] [address]#### [id number] ####Shellfish Weigher: KEMAR ABEBE ([id number])[facility]ITALWar[facility] WADECHRISTUS [facility]INC[facility]IC[facility]ANS MEDICAL CENTEREmmie (SBHLAB)[address] [place] [address] BILIRUBIN, TOTAL PRESENCE IN URINE Negative Normal Negative [facility] Comment on above: Performed By: #### L [id number] ####Shellfish Weigher: MARCELA LUCERO ([id number])[facility] ([facility])[address] [place] [address]#### [id number] ####Shellfish Weigher: KEMAR ABEBE ([id number])[facility] (SBAB)[address] [place] [address] Clarity (U) Clear Normal Clear [facility] Comment on above: Performed By: #### L [id number] ####Shellfish Weigher: MARCELA LUCERO ([id number])[facility] ([facility])[address] [place] [address]#### [id number] ####Shellfish Weigher: KEMAR ABEBE ([id number])[facility] (SBAB)[address] [place] [address] Color (U) Light Yellow Normal Lt. Yellow [facility] Comment on above: Performed By: #### L [id number] ####Shellfish Weigher: MARCELA LUCERO ([id number])[facility] ([facility])[address] [place] [address]#### [id number] ####Shellfish Weigher: KEMAR ABEBE ([id number])[facility] (SBAB)[address] [place] [address] Glucose (U) [Mass/Vol] 300 mg/dL Abnormal Janey l (<70) [facility] Comment on above: Performed By: #### L [id number] ####Shellfish Weigher: MARCELA LUCERO ([id number])[facility] ([facility])[address] [place] [address]#### [id number] ####Shellfish Weigher: KEMAR ABEBE ([id number])[facility] [place] (SBHLAB)[address] HEMOGLOBIN PRESENCE IN URINE Negative Normal Negative [facility] Comment on above: Performed By: #### L [id number] ####Shellfish Weigher: MARCELA LUCERO ([id number])[facility] ([facility])[address] [place] [address]#### [id number] ####Shellfish Weigher: KEMAR ABEBE ([id number])[facility] [place] (SB[facility])[address] [place] [address] Ketones Ql (U) 10 mg/dL Abnormal Negative [facility] Comment on above: Performed By: #### L [id number] ####Shellfish Weigher: MARCELA LUCERO ([id number])[facility] ([facility])[address] [place] [address]#### [id number] ####Shellfish Weigher: KEMAR ABEBE ([id number])[facility] BARBCHRI[address] [facility] (SBHLAB)[address] [place] [address] LEUKOCYTE ESTERASE PRESENCE IN URINE BY TEST STRIP 75 Kat/uL Abnormal Negative [facility] Comment on above: Performed By: #### L [id number] ####Shellfish Weigher: MARCELA LUCERO ([id number])[facility] ([facility])[address] [place] [address]#### [id number] ####Shellfish Weigher: KEMAR ABEBE ([id number])[facility] (SBHLAB)[address] [place] [address] MUCUS (#/LPF) IN URINE SEDIMENT Few Normal Negative [facility] Comment on above: Performed By: #### L [id number] ####Shellfish Weigher: MARCELA LUCERO ([id number])[facility] ([facility])[address] [place] [address]#### [id number] ####Shellfish Weigher: KEMAR ABEBE ([id number])[facility] (SBHLAB)[address] [place] [address] NITRITE PRESENCE IN URINE Negative Normal Negative [facility] Comment on above: Performed By: #### L [id number] ####Shellfish Weigher: MARCELA LUCERO ([id number])[facility] ([facility])[address] [place] [address]#### [id number] ####Shellfish Weigher: KEMAR ABEBE ([id number])[facility] SHERICHRISTUS ST. VINC[facility] PHYSICIANS MEDICAL CENTEREmmie (SBHLAB)[address] [place] [address] pH (U) 5.0 [pH] Normal 5.0-8.0 [facility] Comment on above: Performed By: #### L [id number] ####Shellfish Weigher: MARCELA LUCERO ([id number])[facility] ([facility])[address] [place] [address]#### [id number] ####Shellfish Weigher: KEMAR ABEBE ([id number])[facility] (SBHLAB)[address] [place] [address] Protein (U) [Mass/Vol] 30 mg/dL Abnormal Negative [facility] Comment on above: Performed By: #### L [id number] ####Shellfish Weigher: MARCELA LUCERO ([id number])[facility] ([facility])[address] [place] [address]#### [id number] ####Shellfish Weigher: KEMAR ABEBE ([id number])[facility] (SBHLAB)[address] [place] [address] RBC (#/HPF) IN URINE SEDIMENT 0-2 Normal 0-2 [facility] Comment on above: Performed By: #### L [id number] ####Shellfish Weigher: MARCELA LUCERO ([id number])[facility] ([facility])[address] [place] [address]#### [id number] ####Shellfish Weigher: KEMAR ABEBE ([id number])[facility] (SBHLAB)[address] [place] [address] Specific gravity (U) [Rel density] 1.017 Normal 1.005-1.030 [facility] Comment on above: Result Comment: MARIE Doshi COMMENTS:This specimen has been reflexed to urine culture. Performed By: #### L [id number] ####Shellfish Weigher: MARCELA LUCERO ([id number])[facility] ([facility])[address] [place] [address]#### [id number] ####Shellfish Weigher: KEMAR ABEBE ([id number])[facility] (SBHLAB)[address] [place] [address] SQUAMOUS EPITHELIAL CELLS (#/HPF) IN URINE SEDIMENT 0-2 Normal 3-5 [facility] Comment on above: Performed By: #### L [id number] ####Shellfish Weigher: MARCELA LUCERO ([id number])[facility] ([facility])[address] [place] [address]#### [id number] ####Shellfish Weigher: KEMAR ABEBE ([id number])[facility] (SBHL[facility])[address] [place] [address] UROBILINOGEN (MG/DL) IN URINE Normal Normal Normal (0-1) [facility] Comment on above: Performed By: #### L [id number] ####Shellfish Weigher: MARCELA LUCERO ([id number])[facility] ([facility])[address] [place] [address]#### [id number] ####Shellfish Weigher: KEMAR ABEBE ([id number])[facility] (SBHLAB)[address] [place] [address] WBC (LEUKOCYTE) (#/HPF) IN URINE SEDIMENT 11-25 Abnormal 0-5 [facility] Comment on above: Performed By: #### L [id number] ####Shellfish Weigher: MARCELA LUCERO ([id number])[facility] ([facility])[address] [place] [address] [place]#### [id number] ####Shellfish Weigher: KEMAR ABEBE ([id number])[facility] (SBHLAB)[address] COMPREHENSIVE METABOLIC PANE Gigi 07-10-2025 Albumin [Mass/Vol] 3.3 g/dL Low 3.5-5.0 [facility] Comment on above: Performed By: #### L AB17, LAB99, [id number], [id number] ####Shellfish Weigher: KEMAR ABEBE ([id number])[facility] [place] (SB[facility]AB)[address] ALP [Catalytic activity/Vol] 161 U/L Normal [facility] Comment on above: Performed By: #### L AB17, LAB99, [id number], [id number] ####Shellfish Weigher: KEMAR ABEBE ([id number])[facility] [place] (SB[facility]AB)[address] ALT [Catalytic activity/Vol] 17 U/L Normal [facility] Comment on above: Performed By: #### Elijah AB17, LAB99, [id number], [id number] ####Shellfish Weigher: KEMAR ABEBE ([id number])[facility] ([facility])[address] Anion gap [Moles/Vol] 11 mmol/L Normal 3-13 [facility] Comment on above: Performed By: #### L AB17, LAB99, [id number], [id number] ####Shellfish Weigher: KEMAR ABEBE ([id number])[facility] ([facility])[address] AST [Catalytic activity/Vol] 16 U/L Normal <34 [facility] Comment on above: Performed By: #### L AB17, LAB99, [id number], [id number] ####Shellfish Weigher: KEMAR ABEBE ([id number])[facility] [place] ([facility])[address] Bilirubin [Mass/Vol] 0.6 mg/dL Normal <1.2 [facility] Comment on above: Performed By: #### Elijah AB17, LAB99, [id number], [id number] ####Shellfish Weigher: KEMAR ABEBE ([id number])[facility] ([facility])[address] Calcium [Mass/Vol] 8.7 mg/dL Normal 8.4-10.2 [facility] Comment on above: Performed By: #### Elijah AB17, LAB99, [id number], [id number] ####Shellfish Weigher: KEMAR ABEBE ([id number])[facility] ([facility])[address] Chloride [Moles/Vol] 99 mmol/L Normal 98-107 [facility] Comment on above: Performed By: #### Elijah AB17, LAB99, [id number], [id number] ####Shellfish Weigher: KEMAR ABEBE ([id number])[facility] ([facility])[address] CO2 [Moles/Vol] 29 mmol/L Normal 22-29 [facility] Comment on above: Performed By: #### Elijah AB17, LAB99, [id number], [id number] ####Shellfish Weigher: KEMAR ABEBE ([id number])[facility] ([facility])[address] Creatinine [Mass/Vol] 0.76 mg/dL Normal [facility] Comment on above: Performed By: #### Elijah AB17, LAB99, [id number], [id number] ####Shellfish Weigher: KEMAR ABEBE ([phone])[facility] ([facility])[address] GLOMERULAR FILTRATION RATE ML/MIN/1.73 SQ M.PREDICTED >90.0 Normal >60.0 [facility] Comment on above: Result Comment: Calc ulation based on the Chronic Kidney Disease Epidemiology Collaboration (CKD-EPI) equation refit without adjustment for race Performed By: #### L AB17, LAB99, [id number], [id number] ####Shellfish Weigher: KEMAR ABEBE ([id number])[facility] ([facility])[address] Glucose [Mass/Vol] 322 mg/dL High 74-100 [facility] Comment on above: Performed By: #### L AB17, LAB99, [id number], [id number] ####Shellfish Weigher: KEMAR ABEBE ([id number])[facility] ([facility])[address] Potassium [Moles/Vol] 4.5 mmol/L Normal 3.5-5.1 [facility] Comment on above: Result Comment: [facility] potassium values may be up to 0.5 mmol/L lower than serum values. Performed By: #### L AB17, LAB99, [id number], [id number] ####Shellfish Weigher: KEMAR LUDWIGSAAD ([phone])[facility] ([facility])[address] Protein [Mass/Vol] 7.0 g/dL Normal 6.4-8.3 [facility] Comment on above: Performed By: #### L AB17, LAB99, [id number], [id number] ####Shellfish Weigher: KEMAR ABEBE ([id number])[facility] ([facility])[address] Sodium [Moles/Vol] 139 mmol/L Normal 136-145 [facility] Comment on above: Performed By: #### L AB17, LAB99, [id number], [id number] ####Shellfish Weigher: KEMAR LUDWIGSAAD ([phone])[facility] ([facility])[address] [place] [address] [place] Urea nitrogen [Mass/Vol] 19 mg/dL Normal 9-23 [facility] Comment on above: Performed By: #### L AB17, LAB99, [id number], [id number] ####Shellfish Weigher: KEMAR ABEBE ([id number])[facility] ([facility])[address] [place], [place] [id number] [facility] CT ABDOMEN PELVIS W CONTRAST on 07-10-2025 CT ABDOMEN PELVIS W CONTRAST Normal [facility] CT Abdomen and Pelvis W cont rast Erica 07-10-2025 1. No acute findings or significant interval change, including cholelithiasis. Please see above for further details. Report Dictated on Electronically Signed By: Joel Haddad MD Electronically Signed Date/Time: 07/10/2025 8:23 PM EDT [facility] Patient Name: WILL ALVARADO : [...] again noted suggesting diastatic-type ventral hernia, similar. [facility] Joel Haddad MD - 07/10/2025 [...] Electronically Signed Date/Time: 07/10/2025 8:23 PM EDT [facility] Radiology Study observation (narrative) [facility] Abdomen and Pelvis W cont rast IVOrdered By: Joel Haddad on 07-10-2025 [facility] Work Phone: Comprehensive metabolic 1998 panelon 07-10-2025 Albumin [Mass/Vol] 3.3 g/dL Low 3.5 - 5.0 g/dL [facility] ALP [Catalytic activity/Vol] 161 U/L [facility] ALT [Catalytic activity/Vol] 17 U/L [facility] Anion gap [Moles/Vol] 11 mmol/L 3 - 13 mmol/L [facility] AST [Catalytic activity/Vol] 16 U/L NINF - 34 U/L [facility] Bilirubin [Mass/Vol] 0.6 mg/dL NINF - 1.2 mg/dL [facility] Calcium [Mass/Vol] 8.7 mg/dL 8.4 - 10. 2 mg/dL [facility] Chloride [Moles/Vol] 99 mmol/L 98 - 10 7 mmol/L [facility] CO2 [Moles/Vol] 29 mmol/L 22 - 29 mmol/L [facility] Creatinine [Mass/Vol] 0.76 mg/dL [facility] GFR/1.73 sq M.predicted (S/P/Bld) [Vol rate/Area] - PINF [facility] Comment on above: Calculation based on the Chronic Kidney Disease Epidemiology Collaboration (CKD-EPI) equation refit without adjustment for race Glucose [Mass/Vol] 322 mg/dL High 74 - 100 mg/dL [facility] Potassium [Moles/Vol] 4.5 mmol/L 3.5 - 5.1 mmol/L [facility] Comment on above: Plasma potassium helen ues may be up to 0.5 mmol/L lower than serum values. Protein [Mass/Vol] 7 g/dL 6.4 - 8.3 g/dL [facility] Sodium [Moles/Vol] 139 mmol/L 136 - 145 mmol/L [facility] Urea nitrogen [Mass/Vol] 19 mg/dL 9 - 23 mg/dL [facility] ED Nursing Noteon 07-10-2025 ED Nursing Note Pt here to the ER vi a EMS from SNF c/o headache and nausea for the last couple of days. Normal [facility] ED Provider Noteon ED Provider Note Normal [facility] HIGH SENSITIVITY TROPONIN, S ERIAL BASELINEon 07-10-2025 TROPONIN HS SERIAL BASELINE <3 Normal [facility] Comment on above: Result Comment: In i ndividuals presenting with symptoms > 2h, a baseline troponin <= 5 ng/L suggests acutecardiac injury is unlikely and further serial testing is generally not indicated. Performed By: #### L AB17, LAB99, [id number], [id number] ####Shellfish Weigher: KEMAR ABEBE ([id number])[facility] ([facility])[address] [place] [address] HIGH SENSITIVITY TROPONIN, S ERIAL, SECOND TESTon 07-10-2025 2H TROPONIN HS (SERIAL 2ND TROPONIN) <3 Normal [facility] Comment on above: Result Comment: Delt a value was unable to be calculated as both baseline and serial troponin tests were below the level of quantitation. As both baseline and 2h troponin values are below the level of quantitation, acute cardiac injury is unlikely. Performed By: #### L [id number] ####Shellfish Weigher: KEMAR ABEBE ([phone])[facility] ([facility])[address] LIPASEon 07-10-2025 Lipase [Catalytic activity/Vol] 8 U/L Normal <55 [facility] Comment on above: Performed By: #### L AB17, LAB99, [id number], [id number] ####Shellfish Weigher: KEMAR ABEBE ([id number])[facility] ([facility])[address] Laboratory - Chemistry and C hemistry - challengeon 07-10-2025 Beta hydroxybutyrate [Mass/Vol] 7.3 mg/dL High NINF - 2.8 mg/dL [facility] Lipase [Catalytic activity/Vol] 8 U/L NINF - 55 U/L [facility] Laboratory - Chemistry and C hemistry - challengeOrdered By: Denia Dailey on 07-10-2025 Base excess Calc (BldV) [Moles/Vol] 6.8 mmol/L High -3.0 - 3.0 mmol/L [facility] CO2 (BldV) [Partial pressure] 58.4 mm[Hg] High [facility] CO2 [Moles/Vol] 35.4 mmol/L High 23.0 - 30.0 mmol/L [facility] HCO3 (Bld) [Moles/Vol] 33.6 mmol/L High 21.0 - 30.0 mmol/L [facility] Oxygen (BldV) [Partial pressure] 73 mm[Hg] mm Hg [facility] pH (BldV) 7.378 [pH] 7.320 - 7.420 [facility] Laboratory - Hematology and Cell countsOrdered By: Denia Dailey on 07-10-2025 Hemoglobin (Bld) [Mass/Vol] 12.9 g/dL 7.0 g/dl [facility] Lipase [Catalytic activity/V ol]on 07-10-2025 Interpretation and review of laboratory results Normal [facility] No Panel Informationon 07-10 2h Troponin HS (Serial 2nd Troponin) ng/L ng/L [facility] Comment on above: Delta value was unab le to be calculated as both baseline and serial troponin tests were below the level of quantitation. As both baseline and 2h troponin values are below the level of quantitation, acute cardiac injury is unlikely. [facility] Troponin HS Serial Baseline ng/L ng/L [facility] Comment on above: In individuals prese nting with symptoms > 2h, a baseline troponin <= 5 ng/L suggests acute cardiac injury is unlikely and further serial testing is generally not indicated. [facility] Interpretation and review of laboratory results Abnormal [facility] No Panel InformationOrdered By: Denia Dailey on 07-10-2025 Amount Of Oxygen 2L [facility] Interpretation and review of laboratory results Abnormal [facility] Source Of Oxygen Nasal Cannula (LPM) [facility] Assessment of oxygenation is best done with an arterial blood gas determination. Reference ranges for pO2, bicarbonate, and base excess are for mixed venous blood. Specimens drawn from a peripheral vein will often have higher values. [facility] URINE CULTUREon 07-10-2025 Bacteria identified Cx Nom (U) Normal [facility] Comment on above: Performed By: #### L [id number] ####Shellfish Weigher: MARCELA LUCERO ([id number])[facility] ([facility]AC[facility])[address] [place] [address]#### [id number] ####Shellfish Weigher: KEMAR ABEBE ([id number])[facility] ([facility])[address] [place] [address] Urinalysis complete panel (U )Ordered By: Erickson Olmedo on 07-10-2025 Bacteria LM.HPF (Urine sed) [#/Area] Few Abnormal Negative /HPF [facility] Bilirubin Ql (U) Negative Negative mg/dL [facility] Clarity (U) Clear Clear [facility] Color (U) Light Yellow Lt. Yellow [facility] Epithelial cells.squamous LM.HPF (Urine sed) [#/Area] 0-2 [facility] Glucose Ql (U) 300 mg/dL Abnormal Normal (<70) [facility] Hemoglobin Ql (U) Negative Negative mg/dL [facility] Interpretation and review of laboratory results Abnormal [facility] Ketones (U) [Mass/Vol] 10 mg/dL Abnormal Negative [facility] Leukocyte esterase Test strip Ql (U) 75 Abnormal Negative Kat/uL [facility] Mucus LM.HPF (Urine sed) [#/Area] Few Negative /LPF [facility] Nitrite Ql (U) Negative Negative [facility] pH (U) 5.0 [pH] 5.0 - 8.0 pH [facility] Protein (U) [Mass/Vol] 30 mg/dL Abnormal Negative [facility] RBC LM.HPF (Urine sed) [#/Area] 0-2 [facility] Specific gravity (U) [Rel density] 1.017 1.005 - 1.030 [facility] Urobilinogen (U) [Mass/Vol] Normal Normal (0-1) mg/dL [facility] WBC LM.HPF (Urine sed) [#/Area] 11-25 Abnormal [facility] This specimen has be en reflexed to urine culture. [facility] Urinalysis, Routine (Dipstic k)on 07-10-2025 BILIRUBIN URINE Negative Normal Negative [facility] Comment on above: Order Comment: 103-1 Performed By: #### L 100.0500, L500.4050 #### [facility] [address] [place], [address] Clarity (U) Clear Normal Clear [facility] Comment on above: Order Comment: 103-1 Performed By: #### L 100.0500, L500.4050 #### [facility] [address] [place], [address] Color (U) Yellow Normal Yellow [facility] Comment on above: Order Comment: 103-1 Performed By: #### L 100.0500, L500.4050 #### [facility] [address] [place], [address] GLUCOSE, UR 50 mg/dl Abnormal Normal [facility] Comment on above: Order Comment: 103-1 Performed By: #### L 100.0500, L500.4050 #### [facility] [address] [place], [address] KETONE UR Negative Normal Negative [facility] Comment on above: Order Comment: 103-1 Performed By: #### L 100.0500, L500.4050 #### [facility] [address] [place], [address] LEUK ESTERASE 25 /ul Abnormal Negative [facility] Comment on above: Order Comment: 103-1 Performed By: #### L 100.0500, L500.4050 #### [facility] [address] [place], [address] Nitrite Ql (U) Negative Normal Negative [facility] Comment on above: Order Comment: 103-1 Performed By: #### L 100.0500, L500.4050 #### [facility] [address] [place], [address] OCCULT BLOOD-UR 10 /ul Abnormal Negative [facility] Comment on above: Order Comment: 103-1 Performed By: #### L 100.0500, L500.4050 #### [facility] [address] [place], [address] pH UR 6.0 Normal 5.0 - 8.0 [facility] Comment on above: Order Comment: 103-1 Performed By: #### L 100.0500, L500.4050 #### [facility] [address] [place], [address] PROT DIPSTX 100 mg/dl Abnormal Negative [facility] Comment on above: Order Comment: 103-1 Performed By: #### L 100.0500, L500.4050 #### [facility] [address] [place], [address] SP.GR. DIPSTX 1.020 Normal 1.002-1.030 [facility] Comment on above: Order Comment: 103-1 Performed By: #### L 100.0500, L500.4050 #### [facility] [address] [place], [address] UROBILI Normal Normal Normal [facility] Comment on above: Order Comment: 103-1 Performed By: #### L 100.0500, L500.4050 #### [facility] [address] [place], [address] Vital signsOrdered By: Trever Dailey on 07-10-2025 Oxygen saturation in Venous blood 93.3 % [facility] CBC-Complete Blood Cnt No Di ffon 07-06-2025 Erythrocyte distribution width (RBC) [Ratio] 14.4 % Normal 11.6-14.6 [facility] Comment on above: Order Comment: 103-1 Performed By: #### L 100.0500, L500.4050 #### [facility] [address] [place], [address] Hematocrit (Bld) [Volume fraction] 35.3 % Low 37-47 [facility] Comment on above: Order Comment: 103-1 Performed By: #### L 100.0500, L500.4050 #### [facility] [address] [place], [address] Hemoglobin (Bld) [Mass/Vol] 10.9 g/dL Low 12.0-15.0 [facility] Comment on above: Order Comment: 103-1 Performed By: #### L 100.0500, L500.4050 #### [facility] [address] [place], [address] MCH (RBC) [Entitic mass] 26.0 pg Low 27.0-32.0 [facility] Comment on above: Order Comment: 103-1 Performed By: #### L 100.0500, L500.4050 #### [facility] [address] [place], [address] MCHC (RBC) [Mass/Vol] 30.9 g/dL Low 32-36 [facility] Comment on above: Order Comment: 103-1 Performed By: #### L 100.0500, L500.4050 #### [facility] [address] [place], [address] MCV (RBC) [Entitic vol] 84.0 fL Normal 81-99 [facility] Comment on above: Order Comment: 103-1 Performed By: #### L 100.0500, L500.4050 #### [facility] [address] [place], [address] Platelet mean volume (Bld) [Entitic vol] 10.4 fL Normal 6.2-12.0 [facility] Comment on above: Order Comment: 103-1 Performed By: #### L 100.0500, L500.4050 #### [facility] [address] [place], [address] Platelets (Bld) [#/Vol] 317 10*3/uL Normal 150-450 [facility] Comment on above: Order Comment: 103-1 Performed By: #### L 100.0500, L500.4050 #### [facility] [address] [place], [address] RBC (Bld) [#/Vol] 4.20 10*6/uL Normal 4.2-5.4 [facility] Comment on above: Order Comment: 103-1 Performed By: #### L 100.0500, L500.4050 #### [facility] [address] [place], [address] RDW SD 43.9 fl Normal 35.1-43.9 [facility] Comment on above: Order Comment: 103-1 Performed By: #### L 100.0500, L500.4050 #### [facility] [address] [place], [address] WBC (Bld) [#/Vol] 7.3 10*3/uL Normal 4.4-11.0 [facility] Comment on above: Order Comment: 103-1 Performed By: #### L 100.0500, L500.4050 #### [facility] [address] [place], [address] Comprehensive Metabolic Prof macho 07-06-2025 Albumin [Mass/Vol] 3.7 g/dL Normal 3.5-5.0 [facility] Comment on above: Order Comment: 103-1 Performed By: #### L 100.0500, L500.4050 #### [facility] [address] [place], [address] Albumin/Globulin [Mass ratio] 1.3 {ratio} Normal 0.9-2.4 [facility] Comment on above: Order Comment: 103-1 Performed By: #### L 100.0500, L500.4050 #### [facility] [address] [place], [address] ALK PHOS 196 U/L High 35-104 [facility] Comment on above: Order Comment: 103-1 Performed By: #### L 100.0500, L500.4050 #### [facility] [address] [place], [address] ALT [Catalytic activity/Vol] 17 U/L Normal <=34 [facility] Comment on above: Order Comment: 103-1 Performed By: #### L 100.0500, L500.4050 #### [facility] [address] [place], [address] AST [Catalytic activity/Vol] 16 U/L Normal <=31 [facility] Comment on above: Order Comment: 103-1 Performed By: #### L 100.0500, L500.4050 #### [facility] [address] [place], [address] Bilirubin [Mass/Vol] 0.35 mg/dL Normal 0.00-1.30 [facility] Comment on above: Order Comment: 103-1 Performed By: #### L 100.0500, L500.4050 #### [facility] [address] [place], [address] BUN/CRE 30.4 RATIO High 10-20 [facility] Comment on above: Order Comment: 103-1 Performed By: #### L 100.0500, L500.4050 #### [facility] [address] [place], [address] Calcium [Mass/Vol] 9.0 mg/dL Normal 7.6-11.0 [facility] Comment on above: Order Comment: 103-1 Performed By: #### L 100.0500, L500.4050 #### [facility] [address] [place], [address] Chloride [Moles/Vol] 100 mmol/L Normal 98-108 [facility] Comment on above: Order Comment: 103-1 Performed By: #### L 100.0500, L500.4050 #### [facility] [address] [place], [address] CO2 [Moles/Vol] 27.9 mmol/L Normal 21.0-32.0 [facility] Comment on above: Order Comment: 103-1 Performed By: #### L 100.0500, L500.4050 #### [facility] [address] [place], [address] Creatinine [Mass/Vol] 0.65 mg/dL Low 0.70-1.20 [facility] Comment on above: Order Comment: 103-1 Performed By: #### L 100.0500, L500.4050 #### [facility] [address] [place], [address] GAP 9 Normal 5-15 [facility] Comment on above: Order Comment: 103-1 Performed By: #### L 100.0500, L500.4050 #### [facility] [address] [place], [address] GFR/1.73 sq M.predicted among non-blacks MDRD (S/P/Bld) [Vol rate/Area] 102 mL/min/{1.73_m2} Normal >60 [facility] Comment on above: Order Comment: 103-1 Result Comment: mL/m in/1.73m2 CKD-EPI Creatinine Equation (2020) Performed By: #### L 100.0500, L500.4050 #### [facility] [address] [place], [address] Globulin (S) [Mass/Vol] 2.9 g/dL Normal 2.2-4.2 [facility] Comment on above: Order Comment: 103-1 Performed By: #### L 100.0500, L500.4050 #### [facility] [address] [place], [address] Glucose [Mass/Vol] 166 mg/dL High 70-99 [facility] Comment on above: Order Comment: 103-1 Performed By: #### L 100.0500, L500.4050 #### [facility] [address] [place], [address] Potassium [Moles/Vol] 4.0 mmol/L Normal 3.3-5.1 [facility] Comment on above: Order Comment: 103-1 Performed By: #### L 100.0500, L500.4050 #### [facility] [address] [place], [address] Sodium [Moles/Vol] 137 mmol/L Normal 133-145 [facility] Comment on above: Order Comment: 103-1 Performed By: #### L 100.0500, L500.4050 #### [facility] [address] [place], [address] T PROT 6.6 g/dL Normal 5.9-8.4 [facility] Comment on above: Order Comment: 103-1 Performed By: #### L 100.0500, L500.4050 #### [facility] [address] [place], [address] Urea nitrogen [Mass/Vol] 20 mg/dL High 4-19 [facility] Comment on above: Order Comment: 103-1 Performed By: #### L 100.0500, L500.4050 #### [facility] [address] [place], [address] Hemoglobin A1con 07-06-2025 HbA1c (Bld) [Mass fraction] 7.5 % High <=5.6 [facility] Comment on above: Order Comment: 103- Result Comment: Norm al < 5.7 % Prediabetic 5.7 - 6.4 % Diabetic >or= 6.5 % Please note range changes. Performed By: #### L 100.0500, L500.4050 #### [facility] [address] [place], [address] Lipid Profileon 07-06-2025 CHOL:HDL 3.49 Normal [facility] Comment on above: Order Comment: 103- Performed By: #### L 100.0500, L500.4050 #### [facility] [address], [address] Cholesterol [Mass/Vol] 162 mg/dL Normal <=200 [facility] Comment on above: Order Comment: 1031 Result Comment: Chol esterol level, Desirable <200 mg/dL Borderline high cholesterol 200-239 mg/dL High cholesterol >=240 mg/dL Recommendations of the NCEP Adult Treatment Panel for the following risk-cutoff thresholds for the [place] population. Performed By: #### L 100.0500, L500.4050 #### [facility] [address] [place], [address] Cholesterol in HDL [Mass/Vol] 46 mg/dL Normal [facility] Comment on above: Order Comment: 103-1 Result Comment: Sophy onal Cholesterol Education Program (NCEP) guidelines: <40 mg/dL: Low HDL-cholesterol (major risk factor for CHD) >= 60 mg/dL: High HDL-cholesterol (negative risk factor for CHD) HDL-cholesterol is affected by a number of factors, e.g. smoking, exercise, hormones, sex and age. Performed By: #### L 100.0500, L500.4050 #### [facility] [address] [place], [address] Cholesterol in LDL [Mass/Vol] 88 mg/dL Normal [facility] Comment on above: Order Comment: 103-1 Result Comment: Bord hkoqbw=659-448 mg/dL Higher Cdkn=851 mg/dL or greater Friedwald Equation for LDL-C Performed By: #### L 100.0500, L500.4050 #### [facility] [address] [place], [address] Cholesterol in VLDL [Mass/Vol] 28 mg/dL Normal 5-40 [facility] Comment on above: Order Comment: 103-1 Performed By: #### L 100.0500, L500.4050 #### [facility] [address] [place], [address] Triglyceride [Mass/Vol] 139 mg/dL Normal [facility] Comment on above: Order Comment: 103-1 Result Comment: The drugs N-Acetylcysteine and Metamizole may falsely depress this assay. Normal range: <150 mg/dL Borderline High: 150-199 mg/dL High: 200-499 mg/dL Very High: >500 mg/dL Performed By: #### L 100.0500, L500.4050 #### [facility] [address] [place], [address] Microalb:Creat Ratio,Random URon 07-06-2025 Creatinine [Mass/Vol] 45.20 mg/dL Normal 28.00- 217.0 0 [facility] Comment on above: Performed By: #### L 100.0500, L500.4050 #### [facility] [address] [place], [address] MALB:CREAT 63.9 mg/g CRE High <30 mg/g CRE [facility] Comment on above: Performed By: #### L 100.0500, L500.4050 #### [facility] [address] [place], [address] MICROALBUMIN,UR 28.9 mg/L Normal <20 mg/L [facility] Comment on above: Performed By: #### L 100.0500, L500.4050 #### [facility] [address] [place], [address] 3607-05-2025 36 Appointment schedule d on 07/26 at 11am [address] 07-04-2025 36 Patient's BGL 04/26-07/02/2025 [place] [id number] I called the facilit y to request another copy. [place] [id number] 36 Downloaded blood glu cose log and insulin administration MAR to media tab for the period of 06/08 through 06/29 for provider review. [place] [address] Spoke with Susan [facility] at the [facility] and requested a new BGL with accompanying insulin administration record for 06/08-06/29 for provider review. States she will send it herself. Will watch for information and upload into media tab. [place] 7722206-28-2025 36 The pages are cut of f I cannot see the doses completely [address] 06-27-2025 36 Patient's BGL [place] 7722206-26-2025 36 Spoke with Sheri kelley t the facility. She will re-fax the insulin administration records for 05/29-06/18 for comparison with the BG log sent previously. [address] 06-22-2025 36 Unfortunately half t he document is cut off I cannot see what the Humulin U-500 base dose is, its on 1 page On the second page I can see the sliding scale [place] [address] Scanned faxed MAR fr om facility into media tab for dates 06/08/25 - 06/22/[address] [facility] 36on 06-21-2025 36 Spoke with Sheri kelley t the facility who says she will fax the MAR record for 05/29 through 06/18 for comparison with the BGL by provider. Fax number provided was [phone] [facility] 36on 06-20-2025 36 Spoke with RN caring for Maria Luisa at the facility regarding need for MAR for 05/29 through 06/18 to be faxed for provider review for use of SSI and any missed doses. She states she will fax the MAR records from 05/29 - 06/18 to [phone]. [facility] 36 Please ask for MAR a nd med list I need to know if SS is ever used. Thank you [place] [address] 06-19-2025 36 Patient's BGL [address] 06-14-2025 36 Faxed detailed insul in instructions to Nabil at the [facility] as requested. Confirmation received via email. See media tab. [facility] 36on 06-13-[address] 06-12-2025 36 Phoned [facility] and spoke with pt's nurse, Sheri. Released the message to her. Agrees to fax her BGL and pt's med rec in 2 weeks to our office [phone] [place], [place] [address] [facility] 36 [place] [address] 06-11-2025 [address] [facility] Basic Metabolic Profile (BMP )on 06-11-2025 BUN/CRE 23.2 RATIO High 10-20 [facility] Comment on above: Order Comment: 103-1 Performed By: #### L 100.0500, L500.4050 #### [facility] [address] [place], [address] Calcium [Mass/Vol] 9.1 mg/dL Normal 7.6-11.0 [facility] Comment on above: Order Comment: 103-1 Performed By: #### L 100.0500, L500.4050 #### [facility] [address] [place], [address] Chloride [Moles/Vol] 104 mmol/L Normal 98-108 [facility] Comment on above: Order Comment: 103-1 Performed By: #### L 100.0500, L500.4050 #### [facility] [address] [place], [address] CO2 [Moles/Vol] 29.0 mmol/L Normal 21.0-32.0 [facility] Comment on above: Order Comment: 103-1 Performed By: #### L 100.0500, L500.4050 #### [facility] [address] [place], [address] Creatinine [Mass/Vol] 0.67 mg/dL Low 0.70-1.20 [facility] Comment on above: Order Comment: 103-1 Performed By: #### L 100.0500, L500.4050 #### [facility] [address] [place], [address] GAP 9 Normal 5-15 [facility] Comment on above: Order Comment: 103-1 Performed By: #### L 100.0500, L500.4050 #### [facility] [address] [place], [address] GFR/1.73 sq M.predicted among non-blacks MDRD (S/P/Bld) [Vol rate/Area] 101 mL/min/{1.73_m2} Normal >60 [facility] Comment on above: Order Comment: 103-1 Result Comment: mL/m in/1.73m2 CKD-EPI Creatinine Equation (2020) Performed By: #### L 100.0500, L500.4050 #### [facility] [address] [place], [address] Glucose [Mass/Vol] 136 mg/dL High 70-99 [facility] Comment on above: Order Comment: 103-1 Performed By: #### L 100.0500, L500.4050 #### [facility] [address] [place], [address] Potassium [Moles/Vol] 4.3 mmol/L Normal 3.3-5.1 [facility] Comment on above: Order Comment: 103-1 Performed By: #### L 100.0500, L500.4050 #### [facility] [address] [place], [address] Sodium [Moles/Vol] 142 mmol/L Normal 133-145 [facility] Comment on above: Order Comment: 103-1 Performed By: #### L 100.0500, L500.4050 #### [facility] [address] [place], [address] Urea nitrogen [Mass/Vol] 16 mg/dL Normal 4-19 [facility] Comment on above: Order Comment: 103-1 Performed By: #### L 100.0500, L500.4050 #### [facility] [address] [place], [address] CBC-Complete Blood Cnt No Di ffon 06-11-2025 Erythrocyte distribution width (RBC) [Ratio] 14.7 % High 11.6-14.6 [facility] Comment on above: Order Comment: 103.1 Performed By: #### L 500.2500, L100.0500 #### [facility] [address] [place], [address] Hematocrit (Bld) [Volume fraction] 34.7 % Low 37-47 [facility] Comment on above: Order Comment: 103.1 Performed By: #### L 500.2500, L100.0500 #### [facility] [address] [place], [address] Hemoglobin (Bld) [Mass/Vol] 10.5 g/dL Low 12.0-15.0 [facility] Comment on above: Order Comment: 103.1 Performed By: #### L 500.2500, L100.0500 #### [facility] [address] [place], [address] MCH (RBC) [Entitic mass] 26.5 pg Low 27.0-32.0 [facility] Comment on above: Order Comment: 103.1 Performed By: #### L 500.2500, L100.0500 #### [facility] [address] [place], [address] MCHC (RBC) [Mass/Vol] 30.3 g/dL Low 32-36 [facility] Comment on above: Order Comment: 103.1 Performed By: #### L 500.2500, L100.0500 #### [facility] [address] [place], [address] MCV (RBC) [Entitic vol] 87.6 fL Normal 81-99 [facility] Comment on above: Order Comment: 103.1 Performed By: #### L 500.2500, L100.0500 #### [facility] [address] [place], [address] Platelet mean volume (Bld) [Entitic vol] 10.3 fL Normal 6.2-12.0 [facility] Comment on above: Order Comment: 103.1 Performed By: #### L 500.2500, L100.0500 #### [facility] [address] [place], [address] Platelets (Bld) [#/Vol] 295 10*3/uL Normal 150-450 [facility] Comment on above: Order Comment: 103.1 Performed By: #### L 500.2500, L100.0500 #### [facility] [address] [place], [address] RBC (Bld) [#/Vol] 3.96 10*6/uL Low 4.2-5.4 [facility] Comment on above: Order Comment: 103.1 Performed By: #### L 500.2500, L100.0500 #### [facility] [address] [place], [address] RDW SD 47.3 fl High 35.1-43.9 [facility] Comment on above: Order Comment: 103.1 Performed By: #### L 500.2500, L100.0500 #### [facility] [address] [place], [address] WBC (Bld) [#/Vol] 7.6 10*3/uL Normal 4.4-11.0 [facility] Comment on above: Order Comment: 103.1 Performed By: #### L 500.2500, L100.0500 #### [facility] [address] [place], [address] 322018ba 06-07-2025 [id number] Normal [facility] 36on 06-07-2025 36 Patient's BGL Normal [facility] Anesthesia Noteon 06-07-2025 Anesthesia Note Normal [facility] Anesthesia Note Normal [facility] Nursing Noteon 06-07-2025 Nursing Note Normal [facility] Op Noteon 06-07-[address] [facility] 36on 06-04-2025 36 Normal [facility] 36on 06-01-2025 36 Normal [facility] 36on 05-31-2025 36 Patient's BGL Normal [facility] 36 Normal [facility] 36on 05-18-2025 36 Called skilled nursing and talk with nurse, she don't know and transfer to digital program manager, put me in hold for 25 min and never answer, if they call back please ask what they need . Thank you. [facility] 36 Not sure what is jayne ng asked. Did not order dietary restrictions, only recommendations. [facility] 36on 05-14-2025 36 Please advise! [facility] 36 Normal [facility] Basic Metabolic Profile (BMP )on 05-10-2025 BUN/CRE 25.7 RATIO High 10-20 [facility] Comment on above: Order Comment: 103-1 Performed By: #### L 100.0500, L500.4050 #### [facility] [address] [place], [address] Calcium [Mass/Vol] 8.8 mg/dL Normal 7.6-11.0 [facility] Comment on above: Order Comment: 103-1 Performed By: #### L 100.0500, L500.4050 #### [facility] [address] [place], [address] Chloride [Moles/Vol] 103 mmol/L Normal 98-108 [facility] Comment on above: Order Comment: 103-1 Performed By: #### L 100.0500, L500.4050 #### [facility] [address] [place], [address] CO2 [Moles/Vol] 26.2 mmol/L Normal 21.0-32.0 [facility] Comment on above: Order Comment: 103-1 Performed By: #### L 100.0500, L500.4050 #### [facility] [address] [place], [address] Creatinine [Mass/Vol] 0.64 mg/dL Low 0.70-1.20 [facility] Comment on above: Order Comment: 103-1 Performed By: #### L 100.0500, L500.4050 #### [facility] [address] [place], [address] GAP 10 Normal 5-15 [facility] Comment on above: Order Comment: 103-1 Performed By: #### L 100.0500, L500.4050 #### [facility] [address] [place], [address] GFR/1.73 sq M.predicted among non-blacks MDRD (S/P/Bld) [Vol rate/Area] 102 mL/min/{1.73_m2} Normal >60 [facility] Comment on above: Order Comment: 103-1 Result Comment: mL/m in/1.73m2 CKD-EPI Creatinine Equation (2020) Performed By: #### L 100.0500, L500.4050 #### [facility] [address] [place], [address] Glucose [Mass/Vol] 202 mg/dL High 70-99 [facility] Comment on above: Order Comment: 103-1 Performed By: #### L 100.0500, L500.4050 #### [facility] [address] [place], [address] Potassium [Moles/Vol] 4.5 mmol/L Normal 3.3-5.1 [facility] Comment on above: Order Comment: 103-1 Performed By: #### L 100.0500, L500.4050 #### [facility] [address] [place], [address] Sodium [Moles/Vol] 140 mmol/L Normal 133-145 [facility] Comment on above: Order Comment: 103-1 Performed By: #### L 100.0500, L500.4050 #### [facility] [address] [place], [address] Urea nitrogen [Mass/Vol] 16 mg/dL Normal 4-19 [facility] Comment on above: Order Comment: 103-1 Performed By: #### L 100.0500, L500.4050 #### [facility] [address] [place], [address] CBC-Complete Blood Cnt No Di ffon 05-10-2025 Erythrocyte distribution width (RBC) [Ratio] 14.9 % High 11.6-14.6 [facility] Comment on above: Order Comment: 103-1 Performed By: #### L 100.0500, L500.4050 #### [facility] [address] [place], [address] Hematocrit (Bld) [Volume fraction] 34.2 % Low 37-47 [facility] Comment on above: Order Comment: 103-1 Performed By: #### L 100.0500, L500.4050 #### [facility] [address] [place], [address] Hemoglobin (Bld) [Mass/Vol] 10.5 g/dL Low 12.0-15.0 [facility] Comment on above: Order Comment: 103-1 Performed By: #### L 100.0500, L500.4050 #### [facility] [address] [place], [address] MCH (RBC) [Entitic mass] 26.9 pg Low 27.0-32.0 [facility] Comment on above: Order Comment: 103-1 Performed By: #### L 100.0500, L500.4050 #### [facility] [address] [place], [address] MCHC (RBC) [Mass/Vol] 30.7 g/dL Low 32-36 [facility] Comment on above: Order Comment: 103-1 Performed By: #### L 100.0500, L500.4050 #### [facility] [address] [place], [address] MCV (RBC) [Entitic vol] 87.5 fL Normal 81-99 [facility] Comment on above: Order Comment: 103-1 Performed By: #### L 100.0500, L500.4050 #### [facility] [address] [place], [address] Platelet mean volume (Bld) [Entitic vol] 10.1 fL Normal 6.2-12.0 [facility] Comment on above: Order Comment: 103-1 Performed By: #### L 100.0500, L500.4050 #### [facility] [address] [place], [address] Platelets (Bld) [#/Vol] 318 10*3/uL Normal 150-450 [facility] Comment on above: Order Comment: 103-1 Performed By: #### L 100.0500, L500.4050 #### [facility] [address] [place], [address] RBC (Bld) [#/Vol] 3.91 10*6/uL Low 4.2-5.4 [facility] Comment on above: Order Comment: 103-1 Performed By: #### L 100.0500, L500.4050 #### [facility] [address] [place], [address] RDW SD 47.7 fl High 35.1-43.9 [facility] Comment on above: Order Comment: 103-1 Performed By: #### L 100.0500, L500.4050 #### [facility] [address] [place], [address] WBC (Bld) [#/Vol] 6.5 10*3/uL Normal 4.4-11.0 [facility] Comment on above: Order Comment: 103-1 Performed By: #### L 100.0500, L500.4050 #### [facility] [address] [place], [address] 36on 05-07-2025 36 [facility]'s [facility] and informed. Normal [facility] 36 Continue current dos es Recommend future BGLs be sent in 4 week intervals. Or sooner if experiencing hypoglycemia or persistent elevations. Normal [facility] 36 Patient's BGL Normal [facility] 36on 05-01-2025 36 Called patient nurse at skilled nursing and informed. Normal [facility] 36 Normal [facility] 36on 04-30-2025 36 Patient's BGL Normal [facility] 36on 04-24-2025 36 Called patient nurse Juliane at skilled nursing and informed! Normal [facility] 36on 04-23-2025 36 Patient's BGL Normal [facility] 36on 04-20-2025 36 Called and relayed t he TE below to the pt's nurse. [facility] 36on 04-19-2025 36 Continue current dos es. Future blood glucose log's requested to have [address] weeks of data[address] [facility] 3604-17-2025 36 BGL downloaded in ms travis for your review. Thanks [facility] 36on 04-06-2025 36 Faxed BG recommendat ion to [facility] at fax #: [phone]. Normal [facility] AMB POC HEMOGLOBIN A1Con HbA1c (Bld) [Mass fraction] 6.8 % Abnormal - 5.7 % [facility] HbA1c (Bld) [Mass fraction]o n 04-06-2025 Interpretation and review of laboratory results Abnormal [facility] Progress Noteon 04-06-[address] [facility] 36on 04-05-2025 36 Good Afternoon, I reviewed blood sugars for Maria Luisa, and they are mostly stable. There are no hypoglycemic events and blood sugars are not in the 300s on this log which is fantastic. No changes recommended at this time. Thanks! [facility] 36 Patient's BGL Normal [place] [address]on 03-27-2025 36 [place] [address] 03-16-2025 36 Faxed recommendation s to [facility] fax #: [phone]. Normal [facility] 36on 03-15-2025 36 Reviewed BLG. Blood sugars are variable ranging between 117-359. No insulin dose changes. Blood sugars are improving. [facility] 3603-14-2025 36 We received recent B GL's regarding the pt, please advise. [place] [address] 02-27-2025 36 Patient's BGL Normal [facility] Anion gap in Serum or Plasma Ordered By: Jared Guzman on 02-26-2025 Anion gap [Moles/Vol] 12 mmol/L 5-15 [facility] BUN/creatinine ratioOrdered By: Jared Guzman on 02-26-2025 Urea nitrogen/Creatinine [Mass ratio] 22.4 mg/mg High 10-20 [facility] Carbon dioxide, total [Moles /volume] in Central venous bloodOrdered By: Jared Guzman on 02-26-2025 CO2 [Moles/Vol] 25.7 mmol/L 21.0-32.0 [facility] Chloride assayOrdered By: Marcel Piper on 02-26-2025 Chloride [Moles/Vol] 101 mmol/L 98-108 [facility] GFR/1.73 sq M.predicted belinda g non-blacks MDRD (S/P/Bld) [Vol rate/Area]Ordered By: Jared Guzman on 02-26-2025 Estimated GFR (MDRD) Non-Af Amer 101 >60 [facility] Comment on above: mL/min/1.73m2 CKD-EP I Creatinine Equation (2020) Glomerular filtration rate ( GFR) estimation/1.73 sq m using serum, plasma, or whole bOrdered By: Jared Guzman on 02-26-2025 GFR/1.73 sq M.predicted among non-blacks MDRD (S/P/Bld) [Vol rate/Area] 101 mL/min/{1.73_m2} >60 [facility] Comment on above: mL/min/1.73m2 CKD-EP I Creatinine Equation (2020) Potassium (Unsp spec) [Mass/ Vol]Ordered By: Jared Guzman on 02-26-2025 Potassium [Moles/Vol] 4.0 mmol/L 3.3-5.1 [facility] Potassium measurement (mass/ volume)Ordered By: Jared Guzman on 02-26-2025 Potassium (Unsp spec) [Mass/Vol] 4.0 mmol/L 3.3-5.1 [facility] Renal Profileon 02-26-2025 Albumin [Mass/Vol] 3.7 g/dL Normal 3.5-5.0 [facility] Comment on above: Order Comment: UNKNO WN METHOD OF COLLECTION CLEAN CATCH Performed By: #### M 100.2200, L400.0001 #### [facility] [address] [place], [address] BUN/CRE 22.4 RATIO High 10-20 [facility] Comment on above: Order Comment: UNKNO WN METHOD OF COLLECTION CLEAN CATCH Performed By: #### M 100.2200, L400.0001 #### [facility] [address] [place], [address] Calcium [Mass/Vol] 9.1 mg/dL Normal 7.6-11.0 [facility] Comment on above: Order Comment: UNKNO WN METHOD OF COLLECTION CLEAN CATCH Performed By: #### M 100.2200, L400.0001 #### [facility] [address] [place], [address] Chloride [Moles/Vol] 101 mmol/L Normal 98-108 [facility] Comment on above: Order Comment: UNKNO WN METHOD OF COLLECTION CLEAN CATCH Performed By: #### M 100.2200, L400.0001 #### [facility] [address] [place], [address] CO2 [Moles/Vol] 25.7 mmol/L Normal 21.0-32.0 [facility] Comment on above: Order Comment: UNKNO WN METHOD OF COLLECTION CLEAN CATCH Performed By: #### M 100.2200, L400.0001 #### [facility] [address] [place], [address] Creatinine [Mass/Vol] 0.68 mg/dL Low 0.70-1.20 [facility] Comment on above: Order Comment: UNKNO WN METHOD OF COLLECTION CLEAN CATCH Performed By: #### M 100.2200, L400.0001 #### [facility] [address] [place], [address] GAP 12 Normal 5-15 [facility] Comment on above: Order Comment: UNKNO WN METHOD OF COLLECTION CLEAN CATCH Performed By: #### M 100.2200, L400.0001 #### [facility] [address] [place], [address] GFR/1.73 sq M.predicted among non-blacks MDRD (S/P/Bld) [Vol rate/Area] 101 mL/min/{1.73_m2} Normal >60 [facility] Comment on above: Order Comment: UNKNO WN METHOD OF COLLECTION CLEAN CATCH Result Comment: mL/m in/1.73m2 CKD-EPI Creatinine Equation (2020) Performed By: #### M 100.2200, L400.0001 #### [facility] [address] [place], [address] Glucose [Mass/Vol] 211 mg/dL High 70-99 [facility] Comment on above: Order Comment: UNKNO WN METHOD OF COLLECTION CLEAN CATCH Performed By: #### M 100.2200, L400.0001 #### [facility] [address] [place], [address] Phosphate [Mass/Vol] 4.2 mg/dL Normal 2.7-4.5 [facility] Comment on above: Order Comment: UNKNO WN METHOD OF COLLECTION CLEAN CATCH Performed By: #### M 100.2200, L400.0001 #### [facility] [address] [place], [address] Potassium [Moles/Vol] 4.0 mmol/L Normal 3.3-5.1 [facility] Comment on above: Order Comment: UNKNO WN METHOD OF COLLECTION CLEAN CATCH Performed By: #### M 100.2200, L400.0001 #### [facility] [address] [place], [address] Sodium [Moles/Vol] 139 mmol/L Normal 133-145 [facility] Comment on above: Order Comment: UNKNO WN METHOD OF COLLECTION CLEAN CATCH Performed By: #### M 100.2200, L400.0001 #### [facility] [address] [place], [address] Urea nitrogen [Mass/Vol] 15 mg/dL Normal 4- [facility] Comment on above: Order Comment: UNKNO WN METHOD OF COLLECTION CLEAN CATCH Performed By: #### M 100.4920, L400.0001 #### [facility] [address] [place], [address] Serum creatinine measurement (mass/volume)Ordered By: Jared Guzman on 02-26-2025 Creatinine [Mass/Vol] 0.68 mg/dL Low 0.70-1.20 [facility] Serum glucose measurement (m ass/volume)Ordered By: Jared Guzman on 02-26-2025 Glucose [Mass/Vol] 211 mg/dL High 70-99 [facility] Serum or plasma albumin mauricio urement (mass/volume)Ordered By: Jared Guzman on 02-26-2025 Albumin [Mass/Vol] 3.7 g/dL 3.5-5.0 [facility] Serum or plasma calcium mauricio urement (mass/volume)Ordered By: Jared Guzman on 02-26-2025 Calcium [Mass/Vol] 9.1 mg/dL 7.6-11.0 [facility] Serum or plasma urea nitroge n measurement (mass/volume)Ordered By: Jared Guzman on 02-26-2025 Urea nitrogen [Mass/Vol] 15 mg/dL - [facility] Serum phosphorus measurement Ordered By: Jared Guzman on 02-26-2025 Phosphorus Level 4.2 mg/dL 2.7-4.5 [facility] Sodium levelOrdered By: Main Guzman on 02-26-2025 Sodium [Moles/Vol] 139 mmol/L 133-145 [facility] 02-16-2025 36 Faxed letter to [facility] at fax #: [phone]. [facility] 02-15-[address] [facility] [address] [facility] 02-13-2025 36 Called [facility] to offer cancel the [facility] visit per provider. Visit canceled. [facility] 02-12-2025 36 Nurse from [facility] called to schedule Annual follow up. Follow up scheduled for 03/02/2025. Patient is non weight bearing and uses a [facility]. Further question is whether they bring with [facility] or ambulance cot. Please advise. [facility] 36on 02-09-2025 36 [facility] fax #: [phone]. Normal [facility] No Panel InformationOrdered By: Corin Man on 02-09-2025 Left arm BP 146 mmHg [employer] Phone: Left TBI 0.95 [employer] Phone: Left toe pressure 138 mmHg [employer] Phone: Right arm BP 145 mmHg [employer] Phone: No Panel Informationon 02-09 Left side [...] cuff method used due to body habitus. 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 Pulsed volume recording (PVR) and photo plethysmography was performed. The exam was performed with the patient in the supine position. Overall the study quality was adequate. Study was technically difficult due to: body habitus. CV CPACS 36on 02-08-2025 36 Normal [facility] 36 [facility] Radiology called stating that CT chest wo IV contrast order will before its completion. Requested new order to be placed. Please advise. Normal [facility] 36on 02-07-2025 36 Patient's BGL Normal [facility] Anion gap in Serum or Plasma Ordered By: Jared Guzman on 02-07-2025 Anion gap [Moles/Vol] 10 mmol/L 5-15 [facility] BUN/creatinine ratioOrdered By: Jared Guzman on 02-07-2025 Urea nitrogen/Creatinine [Mass ratio] 21.4 mg/mg High 10-20 [facility] Basic Metabolic Profile (BMP )on 02-07-2025 BUN/CRE 21.4 RATIO High 10-20 [facility] Comment on above: Order Comment: 103.1 Performed By: #### L 100.0500, L500.2500 #### [facility] [address] [place], [address] Calcium [Mass/Vol] 9.0 mg/dL Normal 7.6-11.0 [facility] Comment on above: Order Comment: 103.1 Performed By: #### L 100.0500, L500.2500 #### [facility] [address] [place], [address] Chloride [Moles/Vol] 102 mmol/L Normal 98-108 [facility] Comment on above: Order Comment: 103.1 Performed By: #### L 100.0500, L500.2500 #### [facility] [address] [place], [address] CO2 [Moles/Vol] 27.2 mmol/L Normal 21.0-32.0 [facility] Comment on above: Order Comment: 103.1 Performed By: #### L 100.0500, L500.2500 #### [facility] [address] [place], [address] Creatinine [Mass/Vol] 0.56 mg/dL Low 0.70-1.20 [facility] Comment on above: Order Comment: 103.1 Performed By: #### L 100.0500, L500.2500 #### [facility] [address] [place], [address] GAP 10 Normal 5-15 [facility] Comment on above: Order Comment: 103.1 Performed By: #### L 100.0500, L500.2500 #### [facility] [address] [place], [address] GFR/1.73 sq M.predicted among non-blacks MDRD (S/P/Bld) [Vol rate/Area] 106 mL/min/{1.73_m2} Normal >60 [facility] Comment on above: Order Comment: 103.1 Result Comment: mL/m in/1.73m2 CKD-EPI Creatinine Equation (2020) Performed By: #### L 100.0500, L500.2500 #### [facility] [address] [place], [address] Glucose [Mass/Vol] 113 mg/dL High 70-99 [facility] Comment on above: Order Comment: 103.1 Performed By: #### L 100.0500, L500.2500 #### [facility] [address] [place], [address] Potassium [Moles/Vol] 4.2 mmol/L Normal 3.3-5.1 [facility] Comment on above: Order Comment: 103.1 Performed By: #### L 100.0500, L500.2500 #### [facility] [address] [place], [address] Sodium [Moles/Vol] 140 mmol/L Normal 133-145 [facility] Comment on above: Order Comment: 103.1 Performed By: #### L 100.0500, L500.2500 #### [facility] [address] [place], [address] Urea nitrogen [Mass/Vol] 12 mg/dL Normal 4-19 [facility] Comment on above: Order Comment: 103.1 Performed By: #### L 100.0500, L500.2500 #### [facility] [address] [place], [address] CBC-Complete Blood Cnt No Di ffon 02-07-2025 Erythrocyte distribution width (RBC) [Ratio] 14.5 % Normal 11.6-14.6 [facility] Comment on above: Order Comment: 103.1 Performed By: #### L 100.0500, L500.2500 #### [facility] [address] [place], [address] Hematocrit (Bld) [Volume fraction] 34.7 % Low 37-47 [facility] Comment on above: Order Comment: 103.1 Performed By: #### L 100.0500, L500.2500 #### [facility] [address] [place], [address] Hemoglobin (Bld) [Mass/Vol] 11.1 g/dL Low 12.0-15.0 [facility] Comment on above: Order Comment: 103.1 Performed By: #### L 100.0500, L500.2500 #### [facility] [address] [place], [address] MCH (RBC) [Entitic mass] 27.1 pg Normal 27.0-32.0 [facility] Comment on above: Order Comment: 103.1 Performed By: #### L 100.0500, L500.2500 #### [facility] [address] [place], [address] MCHC (RBC) [Mass/Vol] 32.0 g/dL Normal 32-36 [facility] Comment on above: Order Comment: 103.1 Performed By: #### L 100.0500, L500.2500 #### [facility] [address] [place], [address] MCV (RBC) [Entitic vol] 84.6 fL Normal 81-99 [facility] Comment on above: Order Comment: 103.1 Performed By: #### L 100.0500, L500.2500 #### [facility] [address] [place], [address] Platelet mean volume (Bld) [Entitic vol] 10.3 fL Normal 6.2-12.0 [facility] Comment on above: Order Comment: 103.1 Performed By: #### L 100.0500, L500.2500 #### [facility] [address] [place], [address] Platelets (Bld) [#/Vol] 353 10*3/uL Normal 150-450 [facility] Comment on above: Order Comment: 103.1 Performed By: #### L 100.0500, L500.2500 #### [facility] [address] [place], [address] RBC (Bld) [#/Vol] 4.10 10*6/uL Low 4.2-5.4 [facility] Comment on above: Order Comment: 103.1 Performed By: #### L 100.0500, L500.2500 #### [facility] [address] [place], [address] RDW SD 44.6 fl High 35.1-43.9 [facility] Comment on above: Order Comment: 103.1 Performed By: #### L 100.0500, L500.2500 #### [facility] [address] [place], [address] WBC (Bld) [#/Vol] 8.1 10*3/uL Normal 4.4-11.0 [facility] Comment on above: Order Comment: 103.1 Performed By: #### L 100.0500, L500.2500 #### [facility] [address] [place], [address] Carbon dioxide, total [Moles /volume] in Central venous bloodOrdered By: Jared Guzman on 02-07-2025 CO2 [Moles/Vol] 27.2 mmol/L 21.0-32.0 [facility] Chloride assayOrdered By: Marcel Piper on 02-07-2025 Chloride [Moles/Vol] 102 mmol/L 98-108 [facility] Erythrocyte distribution wid th (RBC) [Ratio]Ordered By: Jared Guzman on 02-07-2025 Erythrocyte distribution width (RBC) [Entitic vol] 44.6 fL High 35.1-43.9 [facility] Erythrocyte distribution wid th ratioOrdered By: Jared Guzman on 02-07-2025 Erythrocyte distribution width (RBC) [Ratio] 14.5 % 11.6-14.6 [facility] Erythrocyte distribution wid th standard deviationOrdered By: Jared Guzman on 02-07-2025 Erythrocyte distribution width (RBC) [Ratio] 44.6 fl High 35.1-43.9 [facility] GFR/1.73 sq M.predicted belinda g non-blacks MDRD (S/P/Bld) [Vol rate/Area]Ordered By: Jared Guzman on 02-07-2025 Estimated GFR (MDRD) Non-Af Amer 106 >60 [facility] Comment on above: mL/min/1.73m2 CKD-EP I Creatinine Equation (2020) Glomerular filtration rate ( GFR) estimation/1.73 sq m using serum, plasma, or whole bOrdered By: Jared Guzman on 02-07-2025 GFR/1.73 sq M.predicted among non-blacks MDRD (S/P/Bld) [Vol rate/Area] 106 mL/min/{1.73_m2} >60 [facility] Comment on above: mL/min/1.73m2 CKD-EP I Creatinine Equation (2020) Hematocrit Auto (Bld) [Volum e fraction]Ordered By: Jared Guzman on 02-07-2025 Hematocrit (Bld) [Volume fraction] 34.7 % Low 37-47 [facility] Hemoglobin measurementOrdere d By: Jared Guzman on 02-07-2025 Hemoglobin (Bld) [Mass/Vol] 11.1 g/dL Low 12.0-15.0 [facility] MCV (mean corpuscular volume ) determinationOrdered By: Jared Guzman on 02-07-2025 MCV (RBC) [Entitic vol] 84.6 fL 81-99 [facility] Mean corpuscular hemoglobin (MCH) determinationOrdered By: Jared Guzman on 02-07-2025 MCH (RBC) [Entitic mass] 27.1 pg 27.0-32.0 [facility] Mean corpuscular hemoglobin concentration (MCHC) determinationOrdered By: Jared Guzman on 02-07-2025 MCHC (RBC) [Mass/Vol] 32.0 g/dL 32-36 [facility] Mean platelet volume determi nationOrdered By: Jared Guzman on 02-07-2025 Platelet mean volume (Bld) [Entitic vol] 10.3 fL 6.2-12.0 [facility] Platelet countOrdered By: Marcel Piper on 02-07-2025 Platelets (Bld) [#/Vol] 353 10*3/uL 150-450 [facility] Potassium (Unsp spec) [Mass/ Vol]Ordered By: Jared Guzman on 02-07-2025 Potassium [Moles/Vol] 4.2 mmol/L 3.3-5.1 [facility] Potassium measurement (mass/ volume)Ordered By: Jared Guzman on 02-07-2025 Potassium (Unsp spec) [Mass/Vol] 4.2 mmol/L 3.3-5.1 [facility] RBC Auto (Bld) [#/Vol]Ordere d By: Jared Guzman on 02-07-2025 RBC (Bld) [#/Vol] 4.10 10*6/uL Low 4.2-5.4 [facility] Serum creatinine measurement (mass/volume)Ordered By: Jared Guzman on 02-07-2025 Creatinine [Mass/Vol] 0.56 mg/dL Low 0.70-1.20 [facility] Serum glucose measurement (m ass/volume)Ordered By: Jared Guzman on 02-07-2025 Glucose [Mass/Vol] 113 mg/dL High 70-99 [facility] Serum or plasma calcium mauricio urement (mass/volume)Ordered By: Jared Guzman on 02-07-2025 Calcium [Mass/Vol] 9.0 mg/dL 7.6-11.0 [facility] Serum or plasma urea nitroge n measurement (mass/volume)Ordered By: Jared Guzman on 02-07-2025 Urea nitrogen [Mass/Vol] 12 mg/dL 4-19 [facility] Sodium levelOrdered By: Main Guzman on 02-07-2025 Sodium [Moles/Vol] 140 mmol/L 133-145 [facility] White blood cell (WBC) count Ordered By: Jared Guzman on 02-07-2025 WBC (Bld) [#/Vol] 8.1 10*3/uL 4.4-11.0 Delmar doshi [facility] Progress Noteon 02-01-[address] [facility] 3601-31-2025 36 Called SNF s/w Suma released message as written, she stated that she understood. [facility] 01-30-[address] [facility] 3601-29-2025 [address] [facility] 3601-19-2025 36 Faxed orders to ryder frias at fax #: [phone]. [facility] 01-17-2025 36 [place] 7722201-15-2025 [address] [facility] 01-11-2025 36 Called SNF s/w Sanjana released message as written, she stated that she understood and had no questions. [facility] 01-10-[address] [facility] 3601-08-2025 [address] [facility] 01-02-2025 [address] [facility] 01-01-2025 36 Requested BGLs and a recent CMP was received , please advise. [facility] 01-01-2025 37 Please send Ophthalmology Note once completed this year. Please note if any insulin doses are held on blood log. [facility] Progress Noteon 01-01-[address] [facility] 3612-29-2024 36 Called SNF s/w Ninfa released message as written, no insulin has been held. [facility] 12-28-2024 36 Called the nursing facility to schedule an appointment and spoke with Nabil, who stated that the pt nurse is not in today and that she will have her call our office when she is in. TY [facility] 36 ----- Message from JEREMY Bloom CNP sent at 12/21/2024 4:00 PM EST ----- Please schedule patient for EGD and colonoscopy-[facility] endoscopy. Please call nursing facility to schedule appointment. Thank you. Normal [facility] 36on 12-27-2024 36 Normal [facility] Albumin to globulin ratioOrd ered By: Jared Guzman on 12-27-2024 Albumin/Globulin [Mass ratio] 0.8 {ratio} Low 0.9-2.4 [facility] Bilirubin, totalOrdered By: Jared Guzman on 12-27-2024 Bilirubin [Mass/Vol] 0.40 mg/dL 0.20-1.00 [facility] Comment on above: For patients on eltr ombopag therapy, use of Dimension [place] TBIL is not recommended. Blood urea nitrogen (BUN)/cr eatinine ratioOrdered By: Jared Guzman on 12-27-2024 Urea nitrogen/Creatinine [Mass ratio] 14.4 mg/mg 10-20 [facility] CBC-Complete Blood Cnt No Di ffon 12-27-2024 Erythrocyte distribution width (RBC) [Ratio] 14.6 % Normal 11.6-14.6 [facility] Comment on above: Order Comment: 103-1 Performed By: #### L 100.0500, L500.4050 #### [facility] [address] [place], [address] Hematocrit (Bld) [Volume fraction] 34.5 % Low 37-47 [facility] Comment on above: Order Comment: 103-1 Performed By: #### L 100.0500, L500.4050 #### [facility] [address] [place], [address] Hemoglobin (Bld) [Mass/Vol] 10.9 g/dL Low 12.0-15.0 [facility] Comment on above: Order Comment: 103-1 Performed By: #### L 100.0500, L500.4050 #### [facility] [address] [place], [address] MCH (RBC) [Entitic mass] 27.2 pg Normal 27.0-32.0 [facility] Comment on above: Order Comment: 103-1 Performed By: #### L 100.0500, L500.4050 #### [facility] [address] [place], [address] MCHC (RBC) [Mass/Vol] 31.6 g/dL Low 32-36 [facility] Comment on above: Order Comment: 103-1 Performed By: #### L 100.0500, L500.4050 #### [facility] [address] [place], [address] MCV (RBC) [Entitic vol] 86.0 fL Normal 81-99 [facility] Comment on above: Order Comment: 103-1 Performed By: #### L 100.0500, L500.4050 #### [facility] [address] [place], [address] Platelet mean volume (Bld) [Entitic vol] 10.3 fL Normal 6.2-12.0 [facility] Comment on above: Order Comment: 103-1 Performed By: #### L 100.0500, L500.4050 #### [facility] [address] [place], [address] Platelets (Bld) [#/Vol] 350 10*3/uL Normal 150-450 [facility] Comment on above: Order Comment: 103-1 Performed By: #### L 100.0500, L500.4050 #### [facility] [address] [place], [address] RBC (Bld) [#/Vol] 4.01 10*6/uL Low 4.2-5.4 [facility] Comment on above: Order Comment: 103-1 Performed By: #### L 100.0500, L500.4050 #### [facility] [address] [place], [address] RDW SD 45.5 fl High 35.1-43.9 [facility] Comment on above: Order Comment: 103-1 Performed By: #### L 100.0500, L500.4050 #### [facility] [address] [place], [address] WBC (Bld) [#/Vol] 6.9 10*3/uL Normal 4.4-11.0 [facility] Comment on above: Order Comment: 103-1 Performed By: #### L 100.0500, L500.4050 #### [facility] [address] [place], [address] Carbon dioxide measurementOr dered By: Jared Guzman on 12-27-2024 CO2 [Moles/Vol] 29.0 mmol/L 21.0-32.0 [facility] Chloride measurementOrdered By: Jared Guzman on 12-27-2024 Chloride [Moles/Vol] 104 mmol/L 98-107 [facility] Comprehensive Metabolic Prof ilon 12-27-2024 Albumin [Mass/Vol] 2.8 g/dL Low 3.2-5.0 [facility] Comment on above: Order Comment: 103-1 Performed By: #### L 100.0500, L500.4050 #### [facility] [address] [place], [address] Albumin/Globulin [Mass ratio] 0.8 {ratio} Low 0.9-2.4 [facility] Comment on above: Order Comment: 103-1 Performed By: #### L 100.0500, L500.4050 #### [facility] [address] [place], [address] ALK P 152 U/L High 45-117 [facility] Comment on above: Order Comment: 103-1 Performed By: #### L 100.0500, L500.4050 #### [facility] [address] [place], [address] ALT [Catalytic activity/Vol] 32 U/L Normal 13-56 [facility] Comment on above: Order Comment: 103-1 Performed By: #### L 100.0500, L500.4050 #### [facility] [address] [place], [address] AST [Catalytic activity/Vol] 19 U/L Normal 15-37 [facility] Comment on above: Order Comment: 103-1 Performed By: #### L 100.0500, L500.4050 #### [facility] [address] [place], [address] Bilirubin [Mass/Vol] 0.40 mg/dL Normal 0.20-1.00 [facility] Comment on above: Order Comment: 103-1 Result Comment: For patients on eltrombopag therapy, use of Dimension [place] TBIL is not recommended. Performed By: #### L 100.0500, L500.4050 #### [facility] [address] [place], [address] BUN/CRE 14.4 RATIO Normal 10-20 [facility] Comment on above: Order Comment: 103-1 Performed By: #### L 100.0500, L500.4050 #### [facility] [address] [place], [address] CA,Total 9.4 mg/dL Normal 8.5-10.1 [facility] Comment on above: Order Comment: 103-1 Performed By: #### L 100.0500, L500.4050 #### [facility] [address] [place], [address] Chloride [Moles/Vol] 104 mmol/L Normal 98-107 [facility] Comment on above: Order Comment: 103-1 Performed By: #### L 100.0500, L500.4050 #### [facility] [address] [place], [address] CO2 [Moles/Vol] 29.0 mmol/L Normal 21.0-32.0 [facility] Comment on above: Order Comment: 103- Performed By: #### L 100.0500, L500.4050 #### [facility] [address] [place], [address] Creatinine [Mass/Vol] 0.56 mg/dL Normal 0.55-1.02 [facility] Comment on above: Order Comment: 103- Result Comment: The validity of the calculated GFR GFRAA in patients over 70 years has not been determined. Clinical correlation is essential. Performed By: #### L 100.0500, L500.4050 #### [facility] [address] [place], [address] EST GFR - AA 144 mL/min Normal >60 [facility] Comment on above: Order Comment: 103- Result Comment: Afri can [place] GFR Calc Performed By: #### L 100.0500, L500.4050 #### [facility] [address] [place], [address] GAP 6 Normal 5-15 [facility] Comment on above: Order Comment: - Performed By: #### L 100.0500, L500.4050 #### [facility] [address] [place], [address] GFR/1.73 sq M.predicted among non-blacks MDRD (S/P/Bld) [Vol rate/Area] 119 mL/min/{1.73_m2} Normal >60 [facility] Comment on above: Order Comment: 103- Result Comment: Non- GFR Calc Performed By: #### L 100.0500, L500.4050 #### [facility] [address] [place], [address] Globulin (S) [Mass/Vol] 3.4 g/dL Normal 2.2-4.2 [facility] Comment on above: Order Comment: 103-1 Performed By: #### L 100.0500, L500.4050 #### [facility] [address] [place], [address] Glucose [Mass/Vol] 149 mg/dL High 74-106 [facility] Comment on above: Order Comment: 103-1 Result Comment: Fast ing Glucose result greater than or equal to 126 mg/dL suggests DIABETES MELLITUS per A.D.A. criteria. Performed By: #### L 100.0500, L500.4050 #### [facility] [address] [place], [address] Potassium [Moles/Vol] 3.9 mmol/L Normal 3.5-5.1 [facility] Comment on above: Order Comment: 103-1 Performed By: #### L 100.0500, L500.4050 #### [facility] [address] [place], [address] Sodium [Moles/Vol] 139 mmol/L Normal 136-145 [facility] Comment on above: Order Comment: 103-1 Performed By: #### L 100.0500, L500.4050 #### [facility] [address] [place], [address] T PROT 6.2 g/dL Low 6.4-8.2 [facility] Comment on above: Order Comment: 103-1 Performed By: #### L 100.0500, L500.4050 #### [facility] [address] [place], [address] Urea nitrogen [Mass/Vol] 8 mg/dL Normal 7-18 [facility] Comment on above: Order Comment: 103-1 Performed By: #### L 100.0500, L500.4050 #### [facility] [address] [place], [address] Erythrocyte distribution wid th ratioOrdered By: Jared Guzman on 12-27-2024 Erythrocyte distribution width (RBC) [Ratio] 14.6 % 11.6-14.6 [facility] Erythrocyte distribution wid th standard deviationOrdered By: Jared Guzman on 12-27-2024 Erythrocyte distribution width (RBC) [Entitic vol] 45.5 fL High 35.1-43.9 [facility] Erythrocyte distribution width (RBC) [Ratio] 45.5 fl High 35.1-43.9 [facility] Estimated glomerular filtrat ion rate (GFR) AmericanOrdered By: Jared Guzman on 12-27-2024 Estimated GFR (MDRD) Amer 144 mL/min >60 [facility] Comment on above: GFR Calc Glomerular filtration rate ( GFR) estimationOrdered By: Jared Guzman on 12-27-2024 Estimated GFR (MDRD) Non-Af Amer 119 mL/min >60 [facility] Comment on above: Non- GFR Calc GFR/1.73 sq M.predicted among non-blacks MDRD (S/P/Bld) [Vol rate/Area] 119 mL/min/{1.73_m2} >60 [facility] Comment on above: Non- GFR Calc Glucose measurementOrdered B y: Jared Guzman on 12-27-2024 Glucose [Mass/Vol] 149 mg/dL High 74-106 [facility] Comment on above: Fasting Glucose resu lt greater than or equal to 126 mg/dL suggests DIABETES MELLITUS per A.D.A. criteria. Hematocrit Auto (Bld) [Volum e fraction]Ordered By: Jared Guzman on 12-27-2024 Hematocrit (Bld) [Volume fraction] 34.5 % Low 37-47 [facility] Hemoglobin measurementOrdere d By: Jared Guzman on 12-27-2024 Hemoglobin (Bld) [Mass/Vol] 10.9 g/dL Low 12.0-15.0 [facility] High density lipoprotein (HD L) measurementOrdered By: Jared Guzman on 12-27-2024 Cholesterol in HDL [Mass/Vol] 43 mg/dL >40 [facility] Comment on above: The drugs N-Acetylcy steine and Metamizole may falsely depress this assay. Reference Range HDL <40 mg/dL Low HDL Cholesterol HDL >or= 60 mg/dL High HDL Cholesterol Laboratory - Chemistry and C hemistry - challengeOrdered By: Jared Guzman on 12-27-2024 AST [Catalytic activity/Vol] 19 U/L 15-37 [facility] Lipid Profileon 12-27-2024 Cholesterol [Mass/Vol] 178 mg/dL Normal 200 [facility] Comment on above: Order Comment: 103- Result Comment: <200 mg/dL Desirable 200-240 mg/dL Borderline >240 mg/dL High Risk Performed By: #### L 100.0500, L500.4050 #### [facility] [address] [place], [address] Cholesterol in HDL [Mass/Vol] 43 mg/dL Normal [facility] Comment on above: Order Comment: 103 Result Comment: The drugs N-Acetylcysteine and Metamizole may falsely depress this assay. Reference Range HDL <40 mg/dL Low HDL Cholesterol HDL >or= 60 mg/dL High HDL Cholesterol Performed By: #### L 100.0500, L500.4050 #### [facility] [address] [place], [address] Cholesterol in LDL [Mass/Vol] 99 mg/dL Normal 0-130 [facility] Comment on above: Order Comment: Performed By: #### L 100.0500, L500.4050 #### [facility] [address] [place], [address] Cholesterol in VLDL [Mass/Vol] 36 mg/dL Normal 5-40 [facility] Comment on above: Order Comment: Performed By: #### L 100.0500, L500.4050 #### [facility] [address] [place], [address] Triglyceride [Mass/Vol] 181 mg/dL Normal [facility] Comment on above: Order Comment: 103 Result Comment: The drugs N-Acetylcysteine and Metamizole may falsely depress this assay. Serum Triglycerides Reference Interval Normal <150 mg/dL Borderline high 150 - 199 mg/dL High 200 - 499 mg/dL Very High > or = 500 mg/dL Performed By: #### L 100.0500, L500.4050 #### [facility] [place], [address] Low density lipoprotein (LDL ) cholesterol measurementOrdered By: Jared Guzman on 12-27-2024 Cholesterol in LDL [Mass/Vol] 99 mg/dL 0-130 [facility] MCV (mean corpuscular volume ) determinationOrdered By: Jared Guzman on 12-27-2024 MCV (RBC) [Entitic vol] 86.0 fL 81-99 [facility] Mean corpuscular hemoglobin (MCH) determinationOrdered By: Jared Guzman on 12-27-2024 MCH (RBC) [Entitic mass] 27.2 pg 27.0-32.0 [facility] Mean corpuscular hemoglobin concentration (MCHC) determinationOrdered By: Jared Guzman on 12-27-2024 MCHC (RBC) [Mass/Vol] 31.6 g/dL Low 32-36 [facility] Mean platelet volume determi nationOrdered By: Jared Guzman on 12-27-2024 Platelet mean volume (Bld) [Entitic vol] 10.3 fL 6.2-12.0 [facility] Platelet countOrdered By: Marcel Piper on 12-27-2024 Platelets (Bld) [#/Vol] 350 10*3/uL 150-450 [facility] Potassium measurementOrdered By: Jared Guzman on 12-27-2024 Potassium [Moles/Vol] 3.9 mmol/L 3.5-5.1 [facility] RBC Auto (Bld) [#/Vol]Ordere d By: Jared Guzman on 12-27-2024 RBC (Bld) [#/Vol] 4.01 10*6/uL Low 4.2-5.4 [facility] Serum anion gap measurementO rdered By: Jared Guzman on 12-27-2024 Anion gap [Moles/Vol] 6 mmol/L 5-15 [facility] Serum globulin measurementOr dered By: Jared Guzman on 12-27-2024 Globulin (S) [Mass/Vol] 3.4 g/dL 2.2-4.2 [facility] Serum or plasma alanine jones otransferase (ALT) measurementOrdered By: Jared Guzman on 12-27-2024 ALT [Catalytic activity/Vol] 32 U/L 13-56 [facility] Serum or plasma albumin mauricio urement (mass/volume)Ordered By: Jared Guzman on 12-27-2024 Albumin [Mass/Vol] 2.8 g/dL Low 3.2-5.0 [facility] Serum or plasma alkaline abbey sphatase measurementOrdered By: Jared Guzman on 12-27-2024 ALP [Catalytic activity/Vol] 152 U/L High 45-117 [facility] Serum or plasma calcium mauricio urement (mass/volume)Ordered By: Jared Guzman on 12-27-2024 Calcium [Mass/Vol] 9.4 mg/dL 8.5-10.1 [facility] Serum or plasma cholesterol measurement (mass/volume)Ordered By: Jared Guzman on 12-27-2024 Cholesterol [Mass/Vol] 178 mg/dL <200 [facility] Comment on above: <200 mg/dL Desirable 200-240 mg/dL Borderline >240 mg/dL High Risk Serum or plasma creatinine m easurement (mass/volume)Ordered By: Jared Guzman on 12-27-2024 Creatinine [Mass/Vol] 0.56 mg/dL 0.55-1.02 [facility] Comment on above: The validity of the calculated GFR & GFRAA in patients over 70 years has not been determined. Clinical correlation is essential. Serum or plasma urea nitroge n measurement (mass/volume)Ordered By: Jared Guzman on 12-27-2024 Urea nitrogen [Mass/Vol] 8 mg/dL 7-18 [facility] Sodium levelOrdered By: Main Guzman on 12-27-2024 Sodium [Moles/Vol] 139 mmol/L 136-145 [facility] Total proteinOrdered By: Mike Guzman on 12-27-2024 Protein [Mass/Vol] 6.2 g/dL Low 6.4-8.2 [facility] Triglycerides measurementOrd ered By: Jared Guzman on 12-27-2024 Triglyceride [Mass/Vol] 181 mg/dL <199 [facility] Comment on above: The drugs N-Acetylcy steine and Metamizole may falsely depress this assay.Serum Triglycerides Reference Interval Normal <150 mg/dL Borderline high 150 - 199 mg/dL High 200 - 499 mg/dL Very High > or = 500 mg/dL Very low density lipoprotein (VLDL) cholesterol measurementOrdered By: Jared Guzman on 12-27-2024 Very low density lipoprotein (VLDL) cholesterol measurement 36 mg/dL -40 [facility] VLDL Cholesterol 36 mg/dL 5-40 [facility] White blood cell (WBC) count Ordered By: Jared Guzman on 12-27-2024 WBC (Bld) [#/Vol] 6.9 10*3/uL 4.4-11.0 [facility] 36on 12-22-2024 [address] [facility] [address] [facility] [address] [facility] 36 Faxed orders from ed dean to [facility] 36on 12-21-2024 36 Normal [facility] 37on 12-21-[address] [facility] Progress Noteon 12-21-2024 Progress Note Normal [facility] Progress Note Patient was verified by name and . [facility] 36on 12-20-2024 [address] [facility] 36on 12-13-2024 36 Called SNF s/w Nabil released message as written, she stated that she understood and had no questions. [facility] 36on 12-12-2024 36 Normal [facility] 36on 12-11-2024 36 Patient's BGL Normal [facility] Progress Noteon 12-07-[address] [facility] 36on 12-06-2024 36 LVM with skilled nursing(primary number in account) for adjustment clerk to call back to schedule follow up appointment with Herber. [facility] 3612-05-2024 36 Faxed recommendation s to [facility] at fax #: [phone]. [facility] 36 Normal [facility] 36 Patient's BGL Normal [facility] Albumin to globulin ratioOrd ered By: Jared Guzman on 12-05-2024 Albumin/Globulin [Mass ratio] 0.9 {ratio} 0.9-2.4 [facility] Bilirubin, totalOrdered By: Jared Guzman on 12-05-2024 Bilirubin [Mass/Vol] 0.50 mg/dL 0.20-1.00 [facility] Comment on above: For patients on eltr ombopag therapy, use of Dimension [place] TBIL is not recommended. Blood urea nitrogen (BUN)/cr eatinine ratioOrdered By: Jared Guzman on 12-05-2024 Urea nitrogen/Creatinine [Mass ratio] 20.1 mg/mg High 10-20 [facility] CBC-Complete Blood Cnt No Di ffon 12-05-2024 Erythrocyte distribution width (RBC) [Ratio] 14.7 % High 11.6-14.6 [facility] Comment on above: Order Comment: 103.1 Performed By: #### L 100.0500, L500.4050 #### [facility] [address] [place], [address] Hematocrit (Bld) [Volume fraction] 35.9 % Low 37-47 [facility] Comment on above: Order Comment: 103.1 Performed By: #### L 100.0500, L500.4050 #### [facility] [address] [place], [address] Hemoglobin (Bld) [Mass/Vol] 11.1 g/dL Low 12.0-15.0 [facility] Comment on above: Order Comment: 103.1 Performed By: #### L 100.0500, L500.4050 #### [facility] [address] [place], [address] MCH (RBC) [Entitic mass] 26.5 pg Low 27.0-32.0 [facility] Comment on above: Order Comment: 103.1 Performed By: #### L 100.0500, L500.4050 #### [facility] [address] [place], [address] MCHC (RBC) [Mass/Vol] 30.9 g/dL Low 32-36 [facility] Comment on above: Order Comment: 103.1 Performed By: #### L 100.0500, L500.4050 #### [facility] [address] [place], [address] MCV (RBC) [Entitic vol] 85.7 fL Normal 81-99 [facility] Comment on above: Order Comment: 103.1 Performed By: #### L 100.0500, L500.4050 #### [facility] [address] [place], [address] Platelet mean volume (Bld) [Entitic vol] 10.2 fL Normal 6.2-12.0 [facility] Comment on above: Order Comment: 103.1 Performed By: #### L 100.0500, L500.4050 #### [facility] [address] [place], [address] Platelets (Bld) [#/Vol] 355 10*3/uL Normal 150-450 [facility] Comment on above: Order Comment: 103.1 Performed By: #### L 100.0500, L500.4050 #### [facility] [address] [place], [address] RBC (Bld) [#/Vol] 4.19 10*6/uL Low 4.2-5.4 [facility] Comment on above: Order Comment: 103.1 Performed By: #### L 100.0500, L500.4050 #### [facility] [address] [place], [address] RDW SD 46.5 fl High 35.1-43.9 [facility] Comment on above: Order Comment: 103.1 Performed By: #### L 100.0500, L500.4050 #### [facility] [address] [place], [address] WBC (Bld) [#/Vol] 8.2 10*3/uL Normal 4.4-11.0 [facility] Comment on above: Order Comment: 103.1 Performed By: #### L 100.0500, L500.4050 #### [facility] [address] [place], [address] Carbon dioxide measurementOr dered By: Jared Guzman on 12-05-2024 CO2 [Moles/Vol] 31.0 mmol/L 21.0-32.0 [facility] Chloride measurementOrdered By: Jared Guzman on 12-05-2024 Chloride [Moles/Vol] 99 mmol/L 98-107 [facility] Comprehensive Metabolic Prof ilon 12-05-2024 Albumin [Mass/Vol] 3.0 g/dL Low 3.2-5.0 [facility] Comment on above: Order Comment: 103.1 Performed By: #### L 100.0500, L500.4050 #### [facility] [address] [place], [address] Albumin/Globulin [Mass ratio] 0.9 {ratio} Normal 0.9-2.4 [facility] Comment on above: Order Comment: 103.1 Performed By: #### L 100.0500, L500.4050 #### [facility] [address] [place], [address] ALK P 137 U/L High 45-117 [facility] Comment on above: Order Comment: 103.1 Performed By: #### L 100.0500, L500.4050 #### [facility] [address] [place], [address] ALT [Catalytic activity/Vol] 23 U/L Normal 13-56 [facility] Comment on above: Order Comment: 103.1 Performed By: #### L 100.0500, L500.4050 #### [facility] [address] [place], [address] AST [Catalytic activity/Vol] 12 U/L Low 15-37 [facility] Comment on above: Order Comment: 103.1 Performed By: #### L 100.0500, L500.4050 #### [facility] [address] [place], [address] Bilirubin [Mass/Vol] 0.50 mg/dL Normal 0.20-1.00 [facility] Comment on above: Order Comment: 103.1 Result Comment: For patients on eltrombopag therapy, use of Dimension [place] TBIL is not recommended. Performed By: #### L 100.0500, L500.4050 #### [facility] [address] [place], [address] BUN/CRE 20.1 RATIO High 10-20 [facility] Comment on above: Order Comment: 103.1 Performed By: #### L 100.0500, L500.4050 #### [facility] [address] [place], [address] CA,Total 9.0 mg/dL Normal 8.5-10.1 [facility] Comment on above: Order Comment: 103.1 Performed By: #### L 100.0500, L500.4050 #### [facility] [address] [place], [address] Chloride [Moles/Vol] 99 mmol/L Normal 98-107 [facility] Comment on above: Order Comment: 103.1 Performed By: #### L 100.0500, L500.4050 #### [facility] [address] [place], [address] CO2 [Moles/Vol] 31.0 mmol/L Normal 21.0-32.0 [facility] Comment on above: Order Comment: 103.1 Performed By: #### L 100.0500, L500.4050 #### [facility] [address] [place], [address] Creatinine [Mass/Vol] 0.70 mg/dL Normal 0.55-1.02 [facility] Comment on above: Order Comment: 103.1 Result Comment: The validity of the calculated GFR GFRAA in patients over 70 years has not been determined. Clinical correlation is essential. Performed By: #### L 100.0500, L500.4050 #### [facility] [address] [place], [address] EST GFR - AA 111 mL/min Normal >60 [facility] Comment on above: Order Comment: 103.1 Result Comment: Afri can [place] GFR Calc Performed By: #### L 100.0500, L500.4050 #### [facility] [address] [place], [address] GAP 6 Normal 5-15 [facility] Comment on above: Order Comment: 103.1 Performed By: #### L 100.0500, L500.4050 #### [facility] [address] [place], [address] GFR/1.73 sq M.predicted among non-blacks MDRD (S/P/Bld) [Vol rate/Area] 92 mL/min/{1.73_m2} Normal >60 [facility] Comment on above: Order Comment: 103.1 Result Comment: Non- GFR Calc Performed By: #### L 100.0500, L500.4050 #### [facility] [address] [place], [address] Globulin (S) [Mass/Vol] 3.3 g/dL Normal 2.2-4.2 [facility] Comment on above: Order Comment: 103.1 Performed By: #### L 100.0500, L500.4050 #### [facility] [address] [place], [address] Glucose [Mass/Vol] 86 mg/dL Normal 74-106 [facility] Comment on above: Order Comment: 103.1 Performed By: #### L 100.0500, L500.4050 #### [facility] [address] [place], [address] Potassium [Moles/Vol] 3.0 mmol/L Low 3.5-5.1 [facility] Comment on above: Order Comment: 103.1 Performed By: #### L 100.0500, L500.4050 #### [facility] [address] [place], [address] Sodium [Moles/Vol] 136 mmol/L Normal 136-145 [facility] Comment on above: Order Comment: 103.1 Performed By: #### L 100.0500, L500.4050 #### [facility] [address] [place], [address] T PROT 6.3 g/dL Low 6.4-8.2 [facility] Comment on above: Order Comment: 103.1 Performed By: #### L 100.0500, L500.4050 #### [facility] [address] [place], [address] Urea nitrogen [Mass/Vol] 14 mg/dL Normal 7-18 [facility] Comment on above: Order Comment: 103.1 Performed By: #### L 100.0500, L500.4050 #### [facility] [address] [place], [address] Erythrocyte distribution wid th ratioOrdered By: Jared Guzman on 12-05-2024 Erythrocyte distribution width (RBC) [Ratio] 14.7 % High 11.6-14.6 [facility] Erythrocyte distribution wid th standard deviationOrdered By: Jared Guzman on 12-05-2024 Erythrocyte distribution width (RBC) [Entitic vol] 46.5 fL High 35.1-43.9 [facility] Estimated glomerular filtrat ion rate (GFR) AmericanOrdered By: Jared Guzman on 12-05-2024 Estimated GFR (MDRD) Amer 111 mL/min >60 [facility] Comment on above: GFR Calc Glomerular filtration rate ( GFR) estimationOrdered By: Jared Guzman on 12-05-2024 Estimated GFR (MDRD) Non-Af Amer 92 mL/min >60 [facility] Comment on above: Non- GFR Calc Glucose measurementOrdered B y: Jared Guzman on 12-05-2024 Glucose [Mass/Vol] 86 mg/dL 74-106 [facility] Hematocrit Auto (Bld) [Volum e fraction]Ordered By: Jared Guzman on 12-05-2024 Hematocrit (Bld) [Volume fraction] 35.9 % Low 37-47 [facility] Hemoglobin measurementOrdere d By: Jared Guzman on 12-05-2024 Hemoglobin (Bld) [Mass/Vol] 11.1 g/dL Low 12.0-15.0 [facility] - Chemistry and C hemistry - challengeOrdered By: Jared Guzman on 12-05-2024 AST [Catalytic activity/Vol] 12 U/L Low 15-37 [facility] MCV (mean corpuscular volume ) determinationOrdered By: Jared Guzman on 12-05-2024 MCV (RBC) [Entitic vol] 85.7 fL 81-99 [facility] Mean corpuscular hemoglobin (MCH) determinationOrdered By: Jared Guzman on 12-05-2024 MCH (RBC) [Entitic mass] 26.5 pg Low 27.0-32.0 [facility] Mean corpuscular hemoglobin concentration (MCHC) determinationOrdered By: Jared Guzman on 12-05-2024 MCHC (RBC) [Mass/Vol] 30.9 g/dL Low 32-36 [facility] Mean platelet volume determi nationOrdered By: Jared Guzman on 12-05-2024 Platelet mean volume (Bld) [Entitic vol] 10.2 fL 6.2-12.0 [facility] Platelet countOrdered By: Marcel Piper on 12-05-2024 Platelets (Bld) [#/Vol] 355 10*3/uL 150-450 [facility] Potassium measurementOrdered By: Jared Guzman on 12-05-2024 Potassium [Moles/Vol] 3.0 mmol/L Low 3.5-5.1 [facility] RBC Auto (Bld) [#/Vol]Ordere d By: Jared Guzman on 12-05-2024 RBC (Bld) [#/Vol] 4.19 10*6/uL Low 4.2-5.4 [facility] Serum anion gap measurementO rdered By: Jared Guzman on 12-05-2024 Anion gap [Moles/Vol] 6 mmol/L 5-15 [facility] Serum globulin measurementOr dered By: Jared Guzman on 12-05-2024 Globulin (S) [Mass/Vol] 3.3 g/dL 2.2-4.2 [facility] Serum or plasma alanine jones otransferase (ALT) measurementOrdered By: Jared Guzman on 12-05-2024 ALT [Catalytic activity/Vol] 23 U/L 13-56 [facility] Serum or plasma albumin mauricio urement (mass/volume)Ordered By: Jared Guzman on 12-05-2024 Albumin [Mass/Vol] 3.0 g/dL Low 3.2-5.0 [facility] Serum or plasma alkaline abbey sphatase measurementOrdered By: Jared Guzman on 12-05-2024 ALP [Catalytic activity/Vol] 137 U/L High 45-117 [facility] Serum or plasma calcium mauricio urement (mass/volume)Ordered By: Jared Guzman on 12-05-2024 Calcium [Mass/Vol] 9.0 mg/dL 8.5-10.1 [facility] Serum or plasma creatinine m easurement (mass/volume)Ordered By: Jared Guzman on 12-05-2024 Creatinine [Mass/Vol] 0.70 mg/dL 0.55-1.02 [facility] Comment on above: The validity of the calculated GFR & GFRAA in patients over 70 years has not been determined. Clinical correlation is essential. Serum or plasma urea nitroge n measurement (mass/volume)Ordered By: Jared Guzman on 12-05-2024 Urea nitrogen [Mass/Vol] 14 mg/dL 7-18 [facility] Sodium levelOrdered By: Main Guzman on 12-05-2024 Sodium [Moles/Vol] 136 mmol/L 136-145 [facility] Total proteinOrdered By: Mike Guzman on 12-05-2024 Protein [Mass/Vol] 6.3 g/dL Low 6.4-8.2 [facility] White blood cell (WBC) count Ordered By: Jared Guzman on 12-05-2024 WBC (Bld) [#/Vol] 8.2 10*3/uL 4.4-11.0 [facility] 36on 12-01-2024 36 Faxed new insulin or cary to [facility] at fax #: [phone]. Normal [facility] BASIC METABOLIC PANELon 11-09 Anion gap [Moles/Vol] 10 mmol/L Normal 3-13 [facility] Comment on above: Performed By: #### L [id number] ####Shellfish Weigher: KEMAR ABEBE ([id number])[facility])[address] [place] [address] Calcium [Mass/Vol] 9.0 mg/dL Normal 8.4-10.2 [facility] Comment on above: Performed By: #### L [id number] ####Shellfish Weigher: KEMAR ABEBE ([id number])[facility])[address] Chloride [Moles/Vol] 102 mmol/L Normal 98-107 [facility] Comment on above: Performed By: #### L AB15 ####Shellfish Weigher: KEMAR ABEBE ([id number])[facility] CO2 [Moles/Vol] 25 mmol/L Normal 22-29 [facility] Comment on above: Performed By: #### L AB15 ####Shellfish Weigher: KEMAR ABEBE ([id number])[facility])[address] Creatinine [Mass/Vol] 0.67 mg/dL Normal [facility] Comment on above: Performed By: #### L [id number] ####Shellfish Weigher: KEMAR ABEBE ([id number])[facility])[address] GLOMERULAR FILTRATION RATE ML/MIN/1.73 SQ M.PREDICTED >90.0 Normal >60.0 [facility] Comment on above: Result Comment: Calc ulation based on the Chronic Kidney Disease Epidemiology Collaboration (CKD-EPI) equation refit without adjustment for race Performed By: #### L [id number] ####Shellfish Weigher: KEMAR ABEBE ([id number])[facility])[address] [place] [address] [place] Glucose [Mass/Vol] 215 mg/dL High 74-100 [facility] Comment on above: Performed By: #### L [id number] ####Shellfish Weigher: KEMAR ABEBE ([id number])[facility] ([facility])[address] Potassium [Moles/Vol] 3.4 mmol/L Low 3.5-5.1 [facility] Comment on above: Result Comment: [facility] potassium values may be up to 0.5 mmol/L lower than serum values. Performed By: #### L [id number] ####Shellfish Weigher: KEMAR ABEBE ([id number])[facility] ([facility])[address] [place] [address] [place] Sodium [Moles/Vol] 137 mmol/L Normal 136-145 [facility] Comment on above: Performed By: #### L [id number] ####Shellfish Weigher: KEMAR ABEBE ([id number])[facility] ([facility])[address] [place] [address] [place] Urea nitrogen [Mass/Vol] 10 mg/dL Normal 9-23 [facility] Comment on above: Performed By: #### L [id number] ####Shellfish Weigher: KEMAR ABEBE ([id number])[facility] ([facility])[address] [place] [address] [place] Consulton 12-01-2024 Consult Normal [facility] ED Nursing Noteon 12-01-2024 ED Nursing Note Normal [facility] Progress Noteon 12-01-2024 Progress Note Normal [facility] Progress Note Normal [facility] Albumin to globulin ratioOrd ered By: Jared Guzman on 11-30-2024 Albumin/Globulin [Mass ratio] 0.4 {ratio} Low 0.9-2.4 [facility] Bilirubin, totalOrdered By: Jared Guzman on 11-30-2024 Bilirubin [Mass/Vol] 0.40 mg/dL 0.20-1.00 [facility] Comment on above: For patients on eltr ombopag therapy, use of Dimension [place] TBIL is not recommended. Blood urea nitrogen (BUN)/cr eatinine ratioOrdered By: Jared Guzman on 11-30-2024 Urea nitrogen/Creatinine [Mass ratio] 10.5 mg/mg 10-20 [facility] CBC WITH AUTO DIFFERENTIALon 11-30-2024 Basophils (Bld) [#/Vol] 0.0 10*3/uL Normal 0.0-0.2 [facility] Comment on above: Performed By: #### L [id number] ####Shellfish Weigher: KEMAR ABEBE ([id number])[facility])[address] [place] [address] Basophils/100 WBC (Bld) 0.2 % Normal 0.0-2.0 [facility] Comment on above: Performed By: #### L [id number] ####Shellfish Weigher: KEMAR ABEBE ([id number])[facility] [place] [address] Eosinophils (Bld) [#/Vol] 0.1 10*3/uL Normal 0.0-0.5 [facility] Comment on above: Performed By: #### L [id number] ####Shellfish Weigher: KEMAR ABEBE ([id number])[facility] [place] [address] Eosinophils/100 WBC (Bld) 1.2 % Normal 0.0-6.0 [facility] Comment on above: Performed By: #### L [id number] ####Shellfish Weigher: KEMAR LUDWIGSAAD ([id number])[facility] [place] [address] Erythrocyte distribution width (RBC) [Ratio] 14.7 % Normal 11.5-15.0 [facility] Comment on above: Performed By: #### L [id number] ####Shellfish Weigher: KEMAR LUDWIGSAAD ([id number])[facility])[address] [place] [address] Hematocrit (Bld) [Volume fraction] 37.5 % Normal Male: 40.0-52.0 ; Female: 35.0-47.0 [facility] Comment on above: Performed By: #### L [id number] ####Shellfish Weigher: KEMAR ANDRAE ([id number])[facility])[address] [place] [address] Hemoglobin (Bld) [Mass/Vol] 12.0 g/dL Normal 11.7-18.0 [facility] Comment on above: Performed By: #### L [id number] ####Shellfish Weigher: KEMAR ABEBE ([id number])[facility])[address] [place] [address] IMMATURE GRANS % 0.6 % Normal 0.0-2.0 [facility] Comment on above: Performed By: #### L [id number] ####Shellfish Weigher: KEMAR LUDWIGSAAD ([id number])[facility])[address] [place] [address] IMMATURE GRANS ABSOLUTE 0.1 10*3/uL High <0.1 [facility] Comment on above: Performed By: #### L [id number] ####Shellfish Weigher: KMEAR ABEBE ([id number])[facility])[address] [place] [address] Lymphocytes (Bld) [#/Vol] 1.3 10*3/uL Normal 1.0-4.3 [facility] Comment on above: Performed By: #### L [id number] ####Shellfish Weigher: KEMAR LUDWIGSAAD ([id number])[facility])[address] Lymphocytes/100 WBC (Bld) 15.0 % Normal 15.0-45.0 [facility] Comment on above: Performed By: #### L [id number] ####Shellfish Weigher: KEMAR LUDWIGSAAD ([id number])[facility] (SBHLAB)[address] MCH (RBC) [Entitic mass] 26.8 pg Normal 26.0-34.0 [facility] Comment on above: Performed By: #### L [id number] ####Shellfish Weigher: KEMAR MOMINHiginioSAAD ([phone])[facility]ITALWarren KASPEREmmie (SBHLAB)[address] MCHC 32.0 % Normal 30.5-36.0 [facility] Comment on above: Performed By: #### L [id number] ####Shellfish Weigher: KEMAR LUDWIGSAAD ([phone])[facility]ITALWarren WADECHRISTUS ST[facility] MED[facility] CENTEREmmie (SBHLAB)[address] MCV (RBC) [Entitic vol] 83.9 fL Normal 77.0-99.0 [facility] Comment on above: Performed By: #### L [id number] ####Shellfish Weigher: KEMAR ABEBE ([phone])[facility]ITALWarren [facility]BCH[address] [facility] (SBHLAB)[address] Monocytes (Bld) [#/Vol] 0.3 10*3/uL Normal 0.0-0.9 [facility] Comment on above: Performed By: #### L [id number] ####Shellfish Weigher: KEMAR ABEBE ([phone])[facility] (SBHLAB)[address] Monocytes/100 WBC (Bld) 3.7 % Low 5.0-13.0 [facility] Comment on above: Performed By: #### L [id number] ####Shellfish Weigher: KEMAR MOMINHiginioSAAD ([id number])[facility] [place] (SBHLAB)[address] NEUTROPHILS ABSOLUTE 7.0 10*3/uL Normal 1.8-7.5 [facility] Comment on above: Performed By: #### L [id number] ####Shellfish Weigher: KEMAR MOMINHARRISON ([id number])[facility] [place] (SBHLAB)[address] Neutrophils/100 WBC (Bld) 79.3 % Normal 38.0-82.0 [facility] Comment on above: Performed By: #### L [id number] ####Shellfish Weigher: KEMAR MOMINHARRISON ([phone])[facility] (SBHLAB)[address] [place] [address] NRBC 0.0 /100 WBCs Normal 0.0-2.0 [facility] Comment on above: Performed By: #### L [id number] ####Shellfish Weigher: KEMAR LUDWIGSAAD ([id number])[facility] (SBHLAB)[address] Platelet mean volume (Bld) [Entitic vol] 9.5 fL Normal 9.0-12.7 [facility] Comment on above: Performed By: #### L [id number] ####Shellfish Weigher: KEMAR ABEBE ([id number])[facility] [place] (SBHLAB)[address] Platelets (Bld) [#/Vol] 384 10*3/uL Normal 140-440 [facility] Comment on above: Performed By: #### L [id number] ####Shellfish Weigher: KEMAR LUDWIGSAAD ([id number])[facility] [place] (SBHLAB)[address] RBC (Bld) [#/Vol] 4.47 10*6/uL Normal Male: 4.40-5.90; Female: 3.80-5.20 [facility] Comment on above: Performed By: #### L [id number] ####Shellfish Weigher: KEMARDU MOMINHiginioSAAD ([id number])[facility] [place] (SBHLAB)[address] [place] [address] WBC (Bld) [#/Vol] 8.8 10*3/uL Normal 3.6-10.7 [facility] Comment on above: Performed By: #### L [id number] ####Shellfish Weigher: KEMAR ABEBE ([id number])[facility]ITALWarren [facility] (SBHLAB)[address] [place] [address] CBC-Complete Blood Cnt No Di ffon 11-30-2024 Erythrocyte distribution width (RBC) [Ratio] 15.1 % High 11.6-14.6 [facility] Comment on above: Order Comment: 103-1 Performed By: #### L 100.0500, L500.4050 #### [facility] [address] [place], [address] Hematocrit (Bld) [Volume fraction] 34.7 % Low 37-47 [facility] Comment on above: Order Comment: 103-1 Performed By: #### L 100.0500, L500.4050 #### [facility] [address] [place], [address] Hemoglobin (Bld) [Mass/Vol] 10.8 g/dL Low 12.0-15.0 [facility] Comment on above: Order Comment: 103-1 Performed By: #### L 100.0500, L500.4050 #### [facility] [address] [place], [address] MCH (RBC) [Entitic mass] 26.6 pg Low 27.0-32.0 [facility] Comment on above: Order Comment: 103-1 Performed By: #### L 100.0500, L500.4050 #### [facility] [address] [place], [address] MCHC (RBC) [Mass/Vol] 31.1 g/dL Low 32-36 [facility] Comment on above: Order Comment: 103-1 Performed By: #### L 100.0500, L500.4050 #### [facility] [address] [place], [address] MCV (RBC) [Entitic vol] 85.5 fL Normal 81-99 [facility] Comment on above: Order Comment: 103-1 Performed By: #### L 100.0500, L500.4050 #### [facility] [address] [place], [address] Platelet mean volume (Bld) [Entitic vol] 10.0 fL Normal 6.2-12.0 [facility] Comment on above: Order Comment: 103-1 Performed By: #### L 100.0500, L500.4050 #### [facility] [address] [place], [address] Platelets (Bld) [#/Vol] 375 10*3/uL Normal 150-450 [facility] Comment on above: Order Comment: 103-1 Performed By: #### L 100.0500, L500.4050 #### [facility] [address] [place], [address] RBC (Bld) [#/Vol] 4.06 10*6/uL Low 4.2-5.4 [facility] Comment on above: Order Comment: 103-1 Performed By: #### L 100.0500, L500.4050 #### [facility] [address] [place], [address] RDW SD 46.6 fl High 35.1-43.9 [facility] Comment on above: Order Comment: 103-1 Performed By: #### L 100.0500, L500.4050 #### [facility] [address] [place], [address] WBC (Bld) [#/Vol] 8.4 10*3/uL Normal 4.4-11.0 [facility] Comment on above: Order Comment: 103-1 Performed By: #### L 100.0500, L500.4050 #### [facility] [address] [place], [address] COMPLETE URINALYSISon 2024 BACTERIA (#/HPF) IN URINE Negative Normal Negative [facility] Comment on above: Performed By: #### L [id number] ####Shellfish Weigher: KEMAR ABEBE ([phone])[facility] MEDICAL CENTEREmmie (SBHLAB)[address] BILIRUBIN, TOTAL PRESENCE IN URINE Negative Normal Negative [facility] Comment on above: Performed By: #### L [id number] ####Shellfish Weigher: KEMAR ABEBE ([id number])[facility] [place] (SBHLAB)[address] Clarity (U) Clear Normal Clear [facility] Comment on above: Performed By: #### L [id number] ####Shellfish Weigher: KEMAR ABEBE ([id number])[facility] [place] (SBHLAB)[address] Color (U) Light Yellow Normal Lt. Yellow [facility] Comment on above: Performed By: #### L [id number] ####Shellfish Weigher: KEMAR ABEBE ([phone])[facility] [place] (SBHLAB)[address] Glucose (U) [Mass/Vol] 50 mg/dL Normal Janey l (<70) [facility] Comment on above: Performed By: #### L [id number] ####Shellfish Weigher: KEMAR ABEBE ([id number])[facility] (SBHLAB)[address] HEMOGLOBIN PRESENCE IN URINE 1.0 mg/dL Abnormal Negative [facility] Comment on above: Performed By: #### L [id number] ####Shellfish Weigher: KEAMR ABEBE ([phone])[facility] [place] (SBHLAB)[address] HYALINE CASTS (#/LPF) IN URINE SEDIMENT BY MICROSCOPY 0-2 Abnormal Negative [facility] Comment on above: Performed By: #### L [id number] ####Shellfish Weigher: KEMAR LUDWIGSAAD ([id number])[facility] (SBHLAB)[address] Ketones Ql (U) Trace Abnormal Negative [facility] Comment on above: Performed By: #### L [id number] ####Shellfish Weigher: KEMAR ABEBE ([id number])[facility] ([facility])[address] LEUKOCYTE ESTERASE PRESENCE IN URINE BY TEST STRIP Negative Normal Negative [facility] Comment on above: Performed By: #### L [id number] ####Shellfish Weigher: KEMAR ABEBE ([phone])[facility] ([facility])[address] [place] [address] [place] MUCUS (#/LPF) IN URINE SEDIMENT Few Normal Negative [facility] Comment on above: Performed By: #### L [id number] ####Shellfish Weigher: KEMAR LUDWIGSAAD ([id number])[facility]BK[facility] ([facility])[address] NITRITE PRESENCE IN URINE Negative Normal Negative [facility] Comment on above: Performed By: #### L [id number] ####Shellfish Weigher: KEMAR ABEBE ([phone])[facility] [place] (SBHLAB)[address] pH (U) 6.0 [pH] Normal 5.0-8.0 [facility] Comment on above: Performed By: #### L [id number] ####Shellfish Weigher: KEMAR ABEBE ([id number])[facility] (SBHLAB)[address] Protein (U) [Mass/Vol] 100 mg/dL Abnormal Negative [facility] Comment on above: Performed By: #### L [id number] ####Shellfish Weigher: KEMAR ABEBE ([phone])[facility] [place] (SBHLAB)[address] [place] [address] RBC (#/HPF) IN URINE SEDIMENT >100 Abnormal 0-2 [facility] Comment on above: Performed By: #### L [id number] ####Shellfish Weigher: KEMAR ABEBE ([id number])[facility] (SBHLAB)[address] [place] [address] Specific gravity (U) [Rel density] 1.012 Normal 1.005-1.030 [facility] Comment on above: Performed By: #### L [id number] ####Shellfish Weigher: KEMAR ABEBE ([phone])[facility])[address] [place] [address] SQUAMOUS EPITHELIAL CELLS (#/HPF) IN URINE SEDIMENT 3-5 Normal 3-5 [facility] Comment on above: Performed By: #### L [id number] ####Shellfish Weigher: KEMAR ABEBE ([phone])[facility])[address] [place] [address] UROBILINOGEN (MG/DL) IN URINE Normal Normal Normal (0-1) [facility] Comment on above: Performed By: #### L [id number] ####Shellfish Weigher: KEMAR ABEBE ([phone])[facility] (SBHLAB)[address] [place] [address] WBC (LEUKOCYTE) (#/HPF) IN URINE SEDIMENT 0-2 Normal 0-5 [facility] Comment on above: Performed By: #### L [id number] ####Shellfish Weigher: KEMAR ABEBE ([phone])[facility] (SBAB)[address] [place] [address] COMPREHENSIVE METABOLIC PANE Gigi 11-30-2024 Albumin [Mass/Vol] 3.4 g/dL Low 3.5-5.0 [facility] Comment on above: Performed By: #### Elijah [id number], LAB17, [id number], LAB99 ####Shellfish Weigher: KEMAR ABEBE ([id number])[facility] [place] (SBHLAB)[address] ALP [Catalytic activity/Vol] 145 U/L Normal [facility] Comment on above: Performed By: #### Elijah [id number], LAB17, AOF756, LAB99 ####Shellfish Weigher: KEMAR ABEBE ([id number])[facility] [place] (SBHLAB)[address] ALT [Catalytic activity/Vol] 21 U/L Normal [facility] Comment on above: Performed By: #### Elijah [id number], LAB17, QNF084, LAB99 ####Shellfish Weigher: KEMAR ABEBE ([phone])[facility] [place] (SBHLAB)[address] Anion gap [Moles/Vol] 11 mmol/L Normal 3-13 [facility] Comment on above: Performed By: #### Elijah [id number], LAB17, AUR407, LAB99 ####Shellfish Weigher: KEMAR ABEBE ([id number])[facility] [place] (SBHLAB)[address] AST [Catalytic activity/Vol] 21 U/L Normal <34 [facility] Comment on above: Performed By: #### Elijah [id number], LAB17, NAX741, LAB99 ####Shellfish Weigher: KEMAR ABEBE ([id number])[facility] [place] (SBHLAB)[address] [place] [address] [place] Bilirubin [Mass/Vol] 0.5 mg/dL Normal <1.2 [facility] Comment on above: Performed By: #### L [id number], LAB17, CVX910, LAB99 ####Shellfish Weigher: KEMAR ABEBE ([id number])[facility] [place] (SBHLAB)[address] [place] [address] [place] Calcium [Mass/Vol] 8.9 mg/dL Normal 8.4-10.2 [facility] Comment on above: Performed By: #### L [id number], LAB17, ELO154, LAB99 ####Shellfish Weigher: KEMAR ABEBE ([id number])[facility]ITALWarren [facility] (SBHLAB)[address] Chloride [Moles/Vol] 99 mmol/L Normal 98-107 [facility] Comment on above: Performed By: #### L [id number], LAB17, CLH856, LAB99 ####Shellfish Weigher: KEMAR ABEBE ([id number])[facility] (SBHLAB)[address] CO2 [Moles/Vol] 28 mmol/L Normal 22-29 [facility] Comment on above: Performed By: #### Elijah [id number], LAB17, RAL533, LAB99 ####Shellfish Weigher: KEMAR ABEBE ([id number])[facility] (SBHLAB)[address] Creatinine [Mass/Vol] 0.73 mg/dL Normal [facility] Comment on above: Performed By: #### L [id number], LAB17, [id number], LAB99 ####Shellfish Weigher: KEMAR ABEBE ([id number])[facility] (SBHLAB)[address] GLOMERULAR FILTRATION RATE ML/MIN/1.73 SQ M.PREDICTED >90.0 Normal >60.0 [facility] Comment on above: Result Comment: Calc ulation based on the Chronic Kidney Disease Epidemiology Collaboration (CKD-EPI) equation refit without adjustment for race Performed By: #### L [id number], LAB17, [id number], LAB99 ####Shellfish Weigher: KEMAR ABEBE ([id number])[facility] (SBHLAB)[address] Glucose [Mass/Vol] 249 mg/dL High 74-100 [facility] Comment on above: Performed By: #### L [id number], LAB17, ZDX568, LAB99 ####Shellfish Weigher: KEMAR ABEBE ([id number])[facility] (SBHLAB)[address] Potassium [Moles/Vol] 3.4 mmol/L Low 3.5-5.1 [facility] Comment on above: Result Comment: [facility] potassium values may be up to 0.5 mmol/L lower than serum values. Performed By: #### L [id number], LAB17, [id number], LAB99 ####Shellfish Weigher: KEMAR ABEBE ([id number])[facility] (SBHLAB)[address] Protein [Mass/Vol] 6.7 g/dL Normal 6.4-8.3 [facility] Comment on above: Performed By: #### L [id number], LAB17, NAN075, LAB99 ####Shellfish Weigher: KEMAR ABEBE ([id number])[facility] (SBHLAB)[address] [place] [address] Sodium [Moles/Vol] 138 mmol/L Normal 136-145 [facility] Comment on above: Performed By: #### L [id number], LAB17, GGU411, LAB99 ####Shellfish Weigher: KEMAR ABEBE ([id number])[facility] (SBHLAB)[address] [place] [address] Urea nitrogen [Mass/Vol] 10 mg/dL Normal 9-23 [facility] Comment on above: Performed By: #### L [id number], LAB17, CJO638, LAB99 ####Shellfish Weigher: KEMAR ABEBE ([id number])[facility] (SBAB)[address] Carbon dioxide measurementOr dered By: Jared Guzman on 11-30-2024 CO2 [Moles/Vol] 18.0 mmol/L Low 21.0-32.0 [facility] Chloride measurementOrdered By: Jared Guzman on 11-30-2024 Chloride [Moles/Vol] 104 mmol/L 98-107 [facility] Comprehensive Metabolic Prof ilon 11-30-2024 Albumin [Mass/Vol] 2.0 g/dL Low 3.2-5.0 [facility] Comment on above: Order Comment: UNKNO WN METHOD OF COLLECTION CLEAN CATCH Performed By: #### M 100.2200, L400.0001 #### [facility] [address] [place], [address] Albumin/Globulin [Mass ratio] 0.4 {ratio} Low 0.9-2.4 [facility] Comment on above: Order Comment: UNKNO WN METHOD OF COLLECTION CLEAN CATCH Performed By: #### M 100.2200, L400.0001 #### [facility] [address] [place], [address] ALK P 137 U/L High 45-117 [facility] Comment on above: Order Comment: UNKNO WN METHOD OF COLLECTION CLEAN CATCH Performed By: #### M 100.2200, L400.0001 #### [facility] [address] [place], [address] ALT [Catalytic activity/Vol] 26 U/L Normal 13-56 [facility] Comment on above: Order Comment: UNKNO WN METHOD OF COLLECTION CLEAN CATCH Performed By: #### M 100.2200, L400.0001 #### [facility] [address] [place], [address] AST [Catalytic activity/Vol] 15 U/L Normal 15-37 [facility] Comment on above: Order Comment: UNKNO WN METHOD OF COLLECTION CLEAN CATCH Performed By: #### M 100.2200, L400.0001 #### [facility] [address] [place], [address] Bilirubin [Mass/Vol] 0.40 mg/dL Normal 0.20-1.00 [facility] Comment on above: Order Comment: UNKNO WN METHOD OF COLLECTION CLEAN CATCH Result Comment: For patients on eltrombopag therapy, use of [employer] [place] TBIL is not recommended. Performed By: #### M 100.2200, L400.0001 #### [facility] [address] [place], [address] BUN/CRE 10.5 RATIO Normal 10-20 [facility] Comment on above: Order Comment: UNKNO WN METHOD OF COLLECTION CLEAN CATCH Performed By: #### M 100.2200, L400.0001 #### [facility] [address] [place], [address] CA,Total 5.9 mg/dL Invalid Interpretation Code 8.5-10.1 [facility] Comment on above: Order Comment: UNKNO WN METHOD OF COLLECTION CLEAN CATCH Performed By: #### M 100.2200, L400.0001 #### [facility] [address] [place], [address] Chloride [Moles/Vol] 104 mmol/L Normal 98-107 [facility] Comment on above: Order Comment: UNKNO WN METHOD OF COLLECTION CLEAN CATCH Performed By: #### M 100.2200, L400.0001 #### [facility] [address] [place], [address] CO2 [Moles/Vol] 18.0 mmol/L Low 21.0-32.0 [facility] Comment on above: Order Comment: UNKNO WN METHOD OF COLLECTION CLEAN CATCH Performed By: #### M 100.2200, L400.0001 #### [facility] [address] [place], [address] Creatinine [Mass/Vol] 0.57 mg/dL Normal 0.55-1.02 [facility] Comment on above: Order Comment: UNKNO WN METHOD OF COLLECTION CLEAN CATCH Result Comment: The validity of the calculated GFR GFRAA in patients over 70 years has not been determined. Clinical correlation is essential. Performed By: #### M 100.2200, L400.0001 #### [facility] [address] [place], [address] EST GFR - AA 140 mL/min Normal >60 [facility] Comment on above: Order Comment: UNKNO WN METHOD OF COLLECTION CLEAN CATCH Result Comment: Afri can [place] GFR Calc Performed By: #### M 100.2200, L400.0001 #### [facility] [address] [place], [address] GAP 16 High 5-15 [facility] Comment on above: Order Comment: UNKNO WN METHOD OF COLLECTION CLEAN CATCH Performed By: #### M 100.2200, L400.0001 #### [facility] [address] [place], [address] GFR/1.73 sq M.predicted among non-blacks MDRD (S/P/Bld) [Vol rate/Area] 116 mL/min/{1.73_m2} Normal >60 [facility] Comment on above: Order Comment: UNKNO WN METHOD OF COLLECTION CLEAN CATCH Result Comment: Non- GFR Calc Performed By: #### M 100.2200, L400.0001 #### [facility] [address] [place], [address] Globulin (S) [Mass/Vol] 4.6 g/dL High 2.2-4.2 [facility] Comment on above: Order Comment: UNKNO WN METHOD OF COLLECTION CLEAN CATCH Performed By: #### M 100.2200, L400.0001 #### [facility] [address] [place], [address] Glucose [Mass/Vol] 72 mg/dL Low 74-106 [facility] Comment on above: Order Comment: UNKNO WN METHOD OF COLLECTION CLEAN CATCH Performed By: #### M 100.2200, L400.0001 #### [facility] [address] [place], [address] Potassium [Moles/Vol] 3.3 mmol/L Low 3.5-5.1 [facility] Comment on above: Order Comment: UNKNO WN METHOD OF COLLECTION CLEAN CATCH Performed By: #### M 100.2200, L400.0001 #### [facility] [address] [place], [address] Sodium [Moles/Vol] 138 mmol/L Normal 136-145 [facility] Comment on above: Order Comment: UNKNO WN METHOD OF COLLECTION CLEAN CATCH Performed By: #### M 100.2200, L400.0001 #### [facility] [address] [place], [address] T PROT 6.6 g/dL Normal 6.4-8.2 [facility] Comment on above: Order Comment: UNKNO WN METHOD OF COLLECTION CLEAN CATCH Performed By: #### M 100.2200, L400.0001 #### [facility] [address] [place], [address] Urea nitrogen [Mass/Vol] 6 mg/dL Low 7-18 [facility] Comment on above: Order Comment: UNKNO WN METHOD OF COLLECTION CLEAN CATCH Performed By: #### M 100.2200, L400.0001 #### [facility] [address] [place], [address] ED Nursing Noteon 11-30-2024 ED Nursing Note Patient has had some chest discomfort since this morning. Recently had a PICC line placed in upper right arm for fluids. Normal [facility] ED Provider Noteon ED Provider Note Normal [facility] Erythrocyte distribution wid th ratioOrdered By: Jared Guzman on 11-30-2024 Erythrocyte distribution width (RBC) [Ratio] 15.1 % High 11.6-14.6 [facility] Erythrocyte distribution wid th standard deviationOrdered By: Jared Guzman on 11-30-2024 Erythrocyte distribution width (RBC) [Entitic vol] 46.6 fL High 35.1-43.9 [facility] Estimated glomerular filtrat ion rate (GFR) AmericanOrdered By: Jared Guzman on 11-30-2024 Estimated GFR (MDRD) Amer 140 mL/min >60 [facility] Comment on above: GFR Calc Glomerular filtration rate ( GFR) estimationOrdered By: Jared Guzman on 11-30-2024 Estimated GFR (MDRD) Non-Af Amer 116 mL/min >60 [facility] Comment on above: Non- GFR Calc Glucose measurementOrdered B y: Jared Guzman on 11-30-2024 Glucose [Mass/Vol] 72 mg/dL Low 74-106 [facility] HIGH SENSITIVITY TROPONIN, S ERIAL BASELINEon 11-30-2024 TROPONIN HIGH SENSITIVITY BASELINE <3 Normal [facility] Comment on above: Performed By: #### L [id number] ####Shellfish Weigher: KEMAR ABEBE ([phone])[facility] TROPONIN HIGH SENSITIVITY BASELINE <3 Normal [facility] Comment on above: Performed By: #### L [id number], LAB17, [id number], LAB99 ####Shellfish Weigher: KEMAR ABEBE ([phone])[facility] HIGH SENSITIVITY TROPONIN, S ERIAL, SECOND TESTon 11-30-2024 TROPONIN HS, SERIAL REFLEX, TEST TWO <3 Normal [facility] Comment on above: Performed By: #### L [id number] ####Shellfish Weigher: KEMAR ABEBE ([phone])[facility])[address] [place] [address] Hematocrit Auto (Bld) [Volum e fraction]Ordered By: Jared Guzman on 11-30-2024 Hematocrit (Bld) [Volume fraction] 34.7 % Low 37-47 [facility] Hemoglobin measurementOrdere d By: Jared Guzman on 11-30-2024 Hemoglobin (Bld) [Mass/Vol] 10.8 g/dL Low 12.0-15.0 [facility] LIPASEon 11-30-2024 Lipase [Catalytic activity/Vol] 7 U/L Normal <55 [facility] Comment on above: Performed By: #### L [id number], LAB17, [id number], LAB99 ####Shellfish Weigher: KEMAR ABEBE ([id number])[facility] [place] (SBHLAB)[address] Laboratory - Chemistry and C hemistry - challengeOrdered By: Jared Guzman on 11-30-2024 AST [Catalytic activity/Vol] 15 U/L 15-37 [facility] MAGNESIUMon 11-30-2024 Magnesium [Mass/Vol] 1.5 mg/dL Low 1.6-2.6 [facility] Comment on above: Result Comment: MARIE R COMMENTS:Higher values can be expected in females during menses. Performed By: #### L [id number], LAB17, FND833, LAB99 ####Shellfish Weigher: KEMAR ABEBE ([id number])[facility]OUNT HOSPITALWarren WADECHRISTUS ST. VINCENT PHYSICIANS MEDICAL CENTEREmmie ([facility])[address] MCV (mean corpuscular volume ) determinationOrdered By: Jared Guzman on 11-30-2024 MCV (RBC) [Entitic vol] 85.5 fL 81-99 [facility] Mean corpuscular hemoglobin (MCH) determinationOrdered By: Jared Guzman on 11-30-2024 MCH (RBC) [Entitic mass] 26.6 pg Low 27.0-32.0 [facility] Mean corpuscular hemoglobin concentration (MCHC) determinationOrdered By: Jared Guzman on 11-30-2024 MCHC (RBC) [Mass/Vol] 31.1 g/dL Low 32-36 [facility] Mean platelet volume determi nationOrdered By: Jared Guzman on 11-30-2024 Platelet mean volume (Bld) [Entitic vol] 10.0 fL 6.2-12.0 [facility] Platelet countOrdered By: Marcel Piper on 11-30-2024 Platelets (Bld) [#/Vol] 375 10*3/uL 150-450 [facility] Potassium measurementOrdered By: Jared Guzman on 11-30-2024 Potassium [Moles/Vol] 3.3 mmol/L Low 3.5-5.1 [facility] RBC Auto (Bld) [#/Vol]Ordere d By: Jared Guzman on 11-30-2024 RBC (Bld) [#/Vol] 4.06 10*6/uL Low 4.2-5.4 [facility] Serum anion gap measurementO rdered By: Jared Guzman on 11-30-2024 Anion gap [Moles/Vol] 16 mmol/L High 5-15 [facility] Serum globulin measurementOr dered By: Jared Guzman on 11-30-2024 Globulin (S) [Mass/Vol] 4.6 g/dL High 2.2-4.2 [facility] Serum or plasma alanine jones otransferase (ALT) measurementOrdered By: Jared Guzman on 11-30-2024 ALT [Catalytic activity/Vol] 26 U/L 13-56 [facility] Serum or plasma albumin mauricio urement (mass/volume)Ordered By: Jared Guzman on 11-30-2024 Albumin [Mass/Vol] 2.0 g/dL Low 3.2-5.0 [facility] Serum or plasma alkaline abbey sphatase measurementOrdered By: Jared Guzman on 11-30-2024 ALP [Catalytic activity/Vol] 137 U/L High 45-117 [facility] Serum or plasma calcium mauricio urement (mass/volume)Ordered By: Jared Guzman on 11-30-2024 Calcium [Mass/Vol] 5.9 mg/dL Low 8.5-10.1 [facility] Serum or plasma creatinine m easurement (mass/volume)Ordered By: Jared Guzman on 11-30-2024 Creatinine [Mass/Vol] 0.57 mg/dL 0.55-1.02 [facility] Comment on above: The validity of the calculated GFR & GFRAA in patients over 70 years has not been determined. Clinical correlation is essential. Serum or plasma urea nitroge n measurement (mass/volume)Ordered By: Jared Guzman on 11-30-2024 Urea nitrogen [Mass/Vol] 6 mg/dL Low 7-18 [facility] Sodium levelOrdered By: Main Guzman on 11-30-2024 Sodium [Moles/Vol] 138 mmol/L 136-145 [facility] Total proteinOrdered By: Mike Guzman on 11-30-2024 Protein [Mass/Vol] 6.6 g/dL 6.4-8.2 [facility] US ABDOMEN LIMITEDon 025 US ABDOMEN LIMITED Normal [facility] White blood cell (WBC) count Ordered By: Jared Guzman on 11-30-2024 WBC (Bld) [#/Vol] 8.4 10*3/uL 4.4-11.0 [facility] 36on 11-28-2024 36 I have reviewed the pt's glucose log. Based on interpretation of the FSBS data I recommend the following changes to the pt's antihyperglycemic regimen: Please increase Humulin u500 to 140 units three times daily before meals. Med rec updated: Yes [facility] [address] [facility] 36on 11-22-[address] [facility] 36 Unable to reach Nayan h at to reschedule appt with Makayla Guerrero on 11/27/2024. Called SNF again at [phone] and spoke to Quiana again. Rescheduled pt to 01/01/25 and per Nayan Arayah will call if there is a problem with this date/time. Normal [facility] 36on 11-21-2024 36 Normal [facility] 36 Patient's BGL Normal [place] [address] 11-20-2024 36 Addendum completed. Sending message to provider as FYI, please indicate if/when patient needs fu with provider to review. Will forward to staff to schedule if indicated. Thank you. Normal [facility] 36on 11-19-2024 [address] [facility] [address] CHEST ANGIOGRAM W AND/OR WO IV CONTRASTon 11-18-2024 CT CHEST ANGIOGRAM W AND/OR WO IV CONTRAST Normal [facility] 36on 11-15-2024 36 Patient's BGL Normal [facility] 36on 11-14-2024 36 Noted. Request email ed to radiology team. [facility] Progress Noteon 11-14-2024 Progress Note Normal [facility] 36on 11-13-2024 36 Normal [facility] BASIC METABOLIC PANELon Anion gap [Moles/Vol] 10 mmol/L Normal 3-13 [facility] Comment on above: Performed By: #### L AB15, LAB99, LAB20 ####Shellfish Weigher: KEMAR ABEBE ([id number])[facility] HOSPITALWarren SHERIKATIA (SBHLAB)[address] Calcium [Mass/Vol] 8.7 mg/dL Normal 8.4-10.2 [facility] Comment on above: Performed By: #### L AB15, LAB99, LAB20 ####Shellfish Weigher: KEMAR ABEBE ([id number])[facility] HOSPITALA [place] ([facility])[address] Chloride [Moles/Vol] 105 mmol/L Normal 98-107 [facility] Comment on above: Performed By: #### L AB15, LAB99, LAB20 ####Shellfish Weigher: KEMAR ABEBE ([id number])[facility] HOSPITALA [facility] CENTERKATIA ([facility])[address] CO2 [Moles/Vol] 26 mmol/L Normal 22-29 [facility] Comment on above: Performed By: #### L AB15, LAB99, LAB20 ####Shellfish Weigher: KEMAR ABEBE ([id number])[facility] HOSPITALA [facility] CENTERMARYN ([facility])[address] Creatinine [Mass/Vol] 1.01 mg/dL Normal [facility] Comment on above: Performed By: #### L AB15, LAB99, LAB20 ####Shellfish Weigher: KEMAR ABEBE ([id number])[facility]OSPITALA [place] ([facility])[address] GLOMERULAR FILTRATION RATE ML/MIN/1.73 SQ M.PREDICTED 64.7 mL/min/1.73m*2 Normal >60.0 [facility] Comment on above: Result Comment: Calc ulation based on the Chronic Kidney Disease Epidemiology Collaboration (CKD-EPI) equation refit without adjustment for race Performed By: #### L AB15, LAB99, LAB20 ####Shellfish Weigher: KEMAR ABEBE ([id number])[facility] HOSPITALWarren WADEKATIA (SBHLAB)[address] Glucose [Mass/Vol] 87 mg/dL Normal 74-100 [facility] Comment on above: Performed By: #### L AB15, LAB99, LAB20 ####Shellfish Weigher: KEMAR ABEBE ([id number])[facility]OSPITALWarren WADEKING[facility] ([facility])[address] Potassium [Moles/Vol] 3.9 mmol/L Normal 3.5-5.1 [facility] Comment on above: Result Comment: [facility] potassium values may be up to 0.5 mmol/L lower than serum values. Performed By: #### L AB15, LAB99, LAB20 ####Shellfish Weigher: KEMAR ABEBE ([id number])[facility]OSPITALWarren WADEKING[facility] ([facility])[address] Sodium [Moles/Vol] 141 mmol/L Normal 136-145 [facility] Comment on above: Performed By: #### L AB15, LAB99, LAB20 ####Shellfish Weigher: KEMAR ABEBE ([id number])[facility] ([facility])[address] Urea nitrogen [Mass/Vol] 18 mg/dL Normal 9-23 [facility] Comment on above: Performed By: #### L AB15, LAB99, LAB20 ####Shellfish Weigher: KEMAR ABEBE ([id number])[facility] ([facility])[address] Basic metabolic 1998 panelon 11-12-2024 Anion gap [Moles/Vol] 10 mmol/L 3 - 13 mmol/L [facility] Calcium [Mass/Vol] 8.7 mg/dL 8.4 - 10. 2 mg/dL [facility] Chloride [Moles/Vol] 105 mmol/L 98 - 10 7 mmol/L [facility] CO2 [Moles/Vol] 26 mmol/L 22 - 29 mmol/L [facility] Creatinine [Mass/Vol] 1.01 mg/dL [facility] GFR/1.73 sq M.predicted (S/P/Bld) [Vol rate/Area] 64.7 mL/min - PINF [facility] Comment on above: Calculation based on the Chronic Kidney Disease Epidemiology Collaboration (CKD-EPI) equation refit without adjustment for race Glucose [Mass/Vol] 87 mg/dL 74 - 100 mg/dL [facility] Potassium [Moles/Vol] 3.9 mmol/L 3.5 - 5.1 mmol/L [facility] Comment on above: Plasma potassium helen ues may be up to 0.5 mmol/L lower than serum values. Sodium [Moles/Vol] 141 mmol/L 136 - 145 mmol/L [facility] Urea nitrogen [Mass/Vol] 18 mg/dL 9 - 23 mg/dL [facility] CBC (HEMOGRAM)on 11-12-2024 Erythrocyte distribution width (RBC) [Ratio] 14.8 % Normal 11.5-15.0 [facility] Comment on above: Performed By: #### L AB294 ####Shellfish Weigher: KEMAR ABEBE ([id number])[facility] ([facility])[address] [place] [address] Hematocrit (Bld) [Volume fraction] 37.7 % Normal Male: 40.0-52.0 ; Female: 35.0-47.0 [facility] Comment on above: Performed By: #### L AB294 ####Shellfish Weigher: KEMAR ABEBE ([id number])[facility] ([facility])[address] [place] [address] Hemoglobin (Bld) [Mass/Vol] 12.0 g/dL Normal 11.7-18.0 [facility] Comment on above: Performed By: #### L AB294 ####Shellfish Weigher: KEMAR ABEBE ([id number])[facility] ([facility])[address] [place] [address] MCH (RBC) [Entitic mass] 27.2 pg Normal 26.0-34.0 [facility] Comment on above: Performed By: #### L AB294 ####Shellfish Weigher: KEMAR ABEBE ([id number])[facility] ([facility])[address] MCHC 31.8 % Normal 30.5-36.0 [facility] Comment on above: Performed By: #### L AB294 ####Shellfish Weigher: KEMAR ABEBE ([id number])NATI KASPERN ([facility])[address] MCV (RBC) [Entitic vol] 85.5 fL Normal 77.0-99.0 [facility] Comment on above: Performed By: #### L AB294 ####Shellfish Weigher: KEMAR ABEBE ([id number])[facility]OSPITALWarren WADECHRIST[address]ENTERN (SB[facility]AB)[address] Platelet mean volume (Bld) [Entitic vol] 9.2 fL Normal 9.0-12.7 [facility] Comment on above: Performed By: #### L AB294 ####Shellfish Weigher: KEMAR ABEBE ([id number])[facility]OSPITALWarren [facility]ADE[facility] ([facility])[address] Platelets (Bld) [#/Vol] 391 10*3/uL Normal 140-440 [facility] Comment on above: Performed By: #### L AB294 ####Shellfish Weigher: KEMAR ABEBE ([id number])[facility]OSPITALWarren [facility]ADE[facility] ([facility])[address] RBC (Bld) [#/Vol] 4.41 10*6/uL Normal Male: 4.40-5.90; Female: 3.80-5.20 [facility] Comment on above: Performed By: #### L AB294 ####Shellfish Weigher: KEMAR ABEBE ([id number])[facility]PITALWarren WADECH[address]ERN ([facility])[address] WBC (Bld) [#/Vol] 8.6 10*3/uL Normal 3.6-10.7 [facility] Comment on above: Performed By: #### L AB294 ####Shellfish Weigher: KEMAR ABEBE ([id number])[facility] (SB[facility])[address] CBC panel Auto (Bld)on 11-12 Erythrocyte distribution width (RBC) [Ratio] 14.8 % 11.5 - 15.0 % [facility] Hematocrit (Bld) [Volume fraction] 37.7 % Male: 40.0-52.0 ; Female: 35.0-47.0 [facility] Hemoglobin (Bld) [Mass/Vol] 12 g/dL 11.7 - 18.0 g/dL [facility] MCH (RBC) [Entitic mass] 27.2 pg 26.0 - 34.0 pg [facility] MCHC (RBC) [Mass/Vol] 31.8 % 30.5 - 36.0 % [facility] MCV (RBC) [Entitic vol] 85.5 fL 77.0 - 99.0 fL [facility] Platelet mean volume (Bld) [Entitic vol] 9.2 fL 9.0 - 12.7 fL [facility] Platelets (Bld) [#/Vol] 391 10*3/uL 140 - 440 10*3/uL [facility] RBC (Bld) [#/Vol] 4.41 10*6/uL Male: 4.40-5.90; Female: 3.80-5.20 [facility] WBC (Bld) [#/Vol] 8.6 10*3/uL 3.6 - 10.7 10*3/uL [facility] CT ABDOMEN PELVIS WO IV CONT RASTon 11-12-2024 CT ABDOMEN PELVIS WO IV CONTRAST Normal [facility] CT Abdomen and Pelvis WO con traston 11-12-2024 1. Decompressed gallbladder, with apparent cholelithiasis. 2. 9 mm nodular density right middle lobe not appreciably changed. 3. No other acute findings. Report Dictated on Electronically Signed By: Joel Haddad MD Electronically Signed Date/Time: 11/12/2024 11:13 PM [facility] GuidePal SYSTEM Patient Name: WILL ALVARADO : 1965 [...] habitus versus diastases-type ventral hernia, unchanged. [facility] RADIOLOGY SYSTEM Joel Haddad MD - 11/12/2024 [...] Electronically Signed Date/Time: 11/12/2024 11:13 PM EST [facility] Radiology Study observation (narrative) [facility] CT Abdomen and Pelvis WO con trastOrdered By: Joel Haddad on 11-12-2024 [facility] Work Phone: ED Provider Noteon ED Provider Note Normal [facility] HEPATIC FUNCTION PANELon Albumin [Mass/Vol] 3.3 g/dL Low 3.5-5.0 [facility] Comment on above: Performed By: #### L AB15, LAB99, LAB20 ####Shellfish Weigher: KEMAR ABEBE ([id number])[facility] ([facility])[address] [place] [address] ALP [Catalytic activity/Vol] 143 U/L Normal [facility] Comment on above: Performed By: #### L AB15, LAB99, LAB20 ####Shellfish Weigher: KEMAR ABEBE ([id number])[facility] ([facility])[address] [place] [address] ALT [Catalytic activity/Vol] 65 U/L Normal [facility] Comment on above: Performed By: #### L AB15, LAB99, LAB20 ####Shellfish Weigher: KEMAR ABEBE ([id number])[facility] ([facility])[address] AST [Catalytic activity/Vol] 42 U/L High <34 [facility] Comment on above: Performed By: #### L AB15, LAB99, LAB20 ####Shellfish Weigher: KEMAR MOMINHARRISON ([id number])[facility] ([facility])[address] Bilirubin [Mass/Vol] 0.4 mg/dL Normal <1.2 [facility] Comment on above: Performed By: #### L AB15, LAB99, LAB20 ####Shellfish Weigher: KEMAR MOMINHARRISON ([id number])[facility] ([facility])[address] [place] [address] Bilirubin.indirect [Mass/Vol] 0.2 mg/dL Normal <0.5 [facility] Comment on above: Performed By: #### L AB15, LAB99, LAB20 ####Shellfish Weigher: KEMAR MOMINHARRISON ([id number])[facility] ([facility])[address] [place] [address] Protein [Mass/Vol] 6.8 g/dL Normal 6.4-8.3 [facility] Comment on above: Result Comment: Seru m protein values are higher than plasma values. Samples from recumbent persons are lower by up to 0.5 g/dL as compared to ambulatory persons. After 60 years values are lower by up to 0.2 g/dL. Performed By: #### L AB15, LAB99, LAB20 ####Shellfish Weigher: KEMAR MOMINHARRISON ([id number])[facility] [place] [address] Hepatic function 2000 panelo n 11-12-2024 Albumin [Mass/Vol] 3.3 g/dL Low 3.5 - 5.0 g/dL [facility] ALP [Catalytic activity/Vol] 143 U/L [facility] ALT [Catalytic activity/Vol] 65 U/L [facility] AST [Catalytic activity/Vol] 42 U/L High NINF - 34 U/L [facility] Bilirubin [Mass/Vol] 0.4 mg/dL NINF - 1.2 mg/dL [facility] Bilirubin.conjugated [Mass/Vol] 0.2 mg/dL [facility] - 0.5 mg/dL [facility] Interpretation and review of laboratory results Abnormal [facility] Protein [Mass/Vol] 6.8 g/dL 6.4 - 8.3 g/dL [facility] Comment on above: Serum protein values are higher than plasma values. Samples from recumbent persons are lower by up to 0.5 g/dL as compared to ambulatory persons. After 60 years values are lower by up to 0.2 g/dL. LIPASEon 11-12-2024 Lipase [Catalytic activity/Vol] 26 U/L Normal <55 [facility] Comment on above: Performed By: #### L AB15, LAB99, LAB20 ####Shellfish Weigher: KEMAR ABEBE ([id number])[facility] ([facility])[address] [place] [address] Laboratory - Chemistry and C hemistry - challengeon 11-12-2024 Lipase [Catalytic activity/Vol] 26 U/L NINF - 55 U/L [facility] Lipase [Catalytic activity/V ol]on 11-12-2024 Interpretation and review of laboratory results Normal [facility] No Panel Informationon 11-12 [facility] Urine Cultureon 11-11-2024 [facility] UNKNOWN METHOD OF COLLECTION Mixed Gram Pos Gram Neg Org [place] Count 11,000-25,000 MIXC Mixed contaminants. Submit a new specimen if indicated. Normal [facility] Comment on above: Performed By: #### M 100.2200, L400.0001 #### [facility] [address] [place], [address] Bilirubin Test strip Ql (U)O rdered By: Jared Guzman on 11-10-2024 Bilirubin Ql (U) Negative Negative [facility] Epithelial cells.squamous LM Ql (Urine sed)Ordered By: Jared Guzman on 11-10-2024 Epithelial cells.squamous LM.HPF (Urine sed) [#/Area] 0 /[HPF] 5-10 [facility] Glucose Ql (U)Ordered By: Marcel Piper on 11-10-2024 Urine Glucose (UA) Normal mg/dl Normal [facility] Ketones Test strip Ql (U)Ord ered By: Jared Guzman on 11-10-2024 Ketones Ql (U) Negative Negative [facility] Microscopic analysis of urin e for red blood cells (RBC)Ordered By: Jared Guzman on 11-10-2024 Urine RBC 10-25 SEEN /hpf 0-5 [facility] Mucus LM Ql (Urine sed)Order ed By: Jared Guzman on 11-10-2024 Mucus Ql (Urine sed) 0 SEEN /hpf [facility] Nitrite Test strip Ql (U)Ord ered By: Jared Guzman on 11-10-2024 Nitrite Ql (U) Negative Negative [facility] Progress Noteon 11-10-2024 Progress Note Normal [facility] Protein Test strip Ql (U)Ord ered By: Jared Guzman on 11-10-2024 Protein Ql (U) 500 mg/dl High Negative [facility] Urinalysis, Completeon 11-10 EPI,SQUAMOUS 0-5 SEEN Normal 5-10 [facility] Comment on above: Order Comment: UNKNO WN METHOD OF COLLECTION CLEAN CATCH Performed By: #### M 100.2200, L400.0001 #### [facility] [address] [place], [address] RBC 10-25 SEEN Normal 0-5 [facility] Comment on above: Order Comment: UNKNO WN METHOD OF COLLECTION CLEAN CATCH Performed By: #### M 100.2200, L400.0001 #### [facility] [address] [place], [address] BACTERIA 3+ /hpf Normal None Seen [facility] Comment on above: Order Comment: UNKNO WN METHOD OF COLLECTION CLEAN CATCH Performed By: #### M 100.2200, L400.0001 #### [facility] [address] [place], [address] WBC 10-25 SEEN Normal 0-5 [facility] Comment on above: Order Comment: UNKNO WN METHOD OF COLLECTION CLEAN CATCH Performed By: #### M 100.2200, L400.0001 #### [facility] [address] [place], [address] Mucus Ql (Urine sed) 0 SEEN Normal [facility] Comment on above: Order Comment: UNKNO WN METHOD OF COLLECTION CLEAN CATCH Performed By: #### M 100.2200, L400.0001 #### [facility] [address] [place], [address] Urine blood detectionOrdered By: Jared Guzman on 11-10-2024 Urine Occult Blood 250 /ul High Negative [facility] Urine clarityOrdered By: Mike Guzman on 11-10-2024 Clarity (U) Cloudy Clear [facility] Urine color determinationOrd ered By: Jared Guzman on 11-10-2024 Color (U) Yellow Yellow [facility] Urine cultureOrdered By: Mike Guzman on 11-10-2024 Bacteria identified Cx Nom (U) Mixed Gram Pos & Gram Neg Org Abnormal [facility] Bacteria identified Cx Nom (U) Mixed Gram Pos & Gram Neg Org Abnormal [facility] Urine leukocyte esterase det ection by dipstickOrdered By: Jared Guzman on 11-10-2024 Leukocyte esterase Test strip Ql (U) 100 /ul High Negative [facility] Urine pHOrdered By: Jared moreno on 11-10-2024 pH (U) 6.0 [pH] 5.0 - 8.0 [facility] Urine sediment bacteria coun t by microscopy (number/high power field)Ordered By: Jared Guzman on 11-10-2024 Bacteria LM.HPF (Urine sed) [#/Area] 3 /[HPF] None Seen [facility] Urine specific gravity measu rementOrdered By: Jared Guzman on 11-10-2024 Specific gravity (U) [Rel density] 1.025 1.002-1.030 [facility] Urobilinogen Ql (U)Ordered B y: Jared Guzman on 11-10-2024 Urine Urobilinogen Normal mg/dl Normal [facility] White blood cell countOrdere d By: Jared Guzman on 11-10-2024 Urine WBC 10-25 SEEN /hpf 0-5 [facility] 36on 11-07-2024 36 Released msg to pt's nurse Ninfa. She verbalized understanding Normal [facility] 36 Normal [facility] 36 Patient's BGL Normal [facility] 36on 10-30-2024 36 Released message to nurse [facility] 36 BG log reviewed. No changes to current meds. Send log as needed; otherwise, has appt 11/27 with Ana Maria. Please remind SNF to send BGL and MAR to visit. Thank you! Normal [facility] 36 Patient's BGL Normal [facility] Albumin to globulin ratioOrd ered By: Jared Guzman on 10-30-2024 Albumin/Globulin [Mass ratio] 0.8 {ratio} Low 0.9-2.4 [facility] Bilirubin, totalOrdered By: Jared Guzman on 10-30-2024 Bilirubin [Mass/Vol] 0.40 mg/dL 0.20-1.00 [facility] Comment on above: For patients on eltr ombopag therapy, use of Dimension [place] TBIL is not recommended. Blood urea nitrogen (BUN)/cr eatinine ratioOrdered By: Jared Guzman on 10-30-2024 Urea nitrogen/Creatinine [Mass ratio] 20.3 mg/mg High 10-20 [facility] CBC-Complete Blood Cnt No Di ffon 10-30-2024 Erythrocyte distribution width (RBC) [Ratio] 14.8 % High 11.6-14.6 [facility] Comment on above: Order Comment: 103-1 Performed By: #### L 100.0500, L500.4050 #### [facility] [address] [place], [address] Hematocrit (Bld) [Volume fraction] 32.9 % Low 37-47 [facility] Comment on above: Order Comment: 103-1 Performed By: #### L 100.0500, L500.4050 #### [facility] [address] [place], [address] Hemoglobin (Bld) [Mass/Vol] 10.2 g/dL Low 12.0-15.0 [facility] Comment on above: Order Comment: 103-1 Performed By: #### L 100.0500, L500.4050 #### [facility] [address] [place], [address] MCH (RBC) [Entitic mass] 27.1 pg Normal 27.0-32.0 [facility] Comment on above: Order Comment: 103-1 Performed By: #### L 100.0500, L500.4050 #### [facility] [address] [place], [address] MCHC (RBC) [Mass/Vol] 31.0 g/dL Low 32-36 [facility] Comment on above: Order Comment: 103-1 Performed By: #### L 100.0500, L500.4050 #### [facility] [address] [place], [address] MCV (RBC) [Entitic vol] 87.3 fL Normal 81-99 [facility] Comment on above: Order Comment: 103-1 Performed By: #### L 100.0500, L500.4050 #### [facility] [address] [place], [address] Platelet mean volume (Bld) [Entitic vol] 9.7 fL Normal 6.2-12.0 [facility] Comment on above: Order Comment: 103-1 Performed By: #### L 100.0500, L500.4050 #### [facility] [address] [place], [address] Platelets (Bld) [#/Vol] 387 10*3/uL Normal 150-450 [facility] Comment on above: Order Comment: 103-1 Performed By: #### L 100.0500, L500.4050 #### [facility] [address] [place], [address] RBC (Bld) [#/Vol] 3.77 10*6/uL Low 4.2-5.4 [facility] Comment on above: Order Comment: 103-1 Performed By: #### L 100.0500, L500.4050 #### [facility] [address] [place], [address] RDW SD 46.8 fl High 35.1-43.9 [facility] Comment on above: Order Comment: 103-1 Performed By: #### L 100.0500, L500.4050 #### [facility] [address] [place], [address] WBC (Bld) [#/Vol] 9.0 10*3/uL Normal 4.4-11.0 [facility] Comment on above: Order Comment: 103-1 Performed By: #### L 100.0500, L500.4050 #### [facility] [address] [place], [address] Carbon dioxide measurementOr dered By: Jared Guzman on 10-30-2024 CO2 [Moles/Vol] 26.0 mmol/L 21.0-32.0 [facility] Chloride measurementOrdered By: Jared Guzman on 10-30-2024 Chloride [Moles/Vol] 108 mmol/L High 98-107 [facility] Comprehensive Metabolic Prof ilon 10-30-2024 Albumin [Mass/Vol] 2.8 g/dL Low 3.2-5.0 [facility] Comment on above: Order Comment: 103-1 Performed By: #### L 100.0500, L500.4050 #### [facility] [address] [place], [address] Albumin/Globulin [Mass ratio] 0.8 {ratio} Low 0.9-2.4 [facility] Comment on above: Order Comment: 103-1 Performed By: #### L 100.0500, L500.4050 #### [facility] [address] [place], [address] ALK P 113 U/L Normal 45-117 [facility] Comment on above: Order Comment: 103-1 Performed By: #### L 100.0500, L500.4050 #### [facility] [address] [place], [address] ALT [Catalytic activity/Vol] 25 U/L Normal 13-56 [facility] Comment on above: Order Comment: 103-1 Performed By: #### L 100.0500, L500.4050 #### [facility] [address] [place], [address] AST [Catalytic activity/Vol] 18 U/L Normal 15-37 [facility] Comment on above: Order Comment: 103-1 Performed By: #### L 100.0500, L500.4050 #### [facility] [address] [place], [address] Bilirubin [Mass/Vol] 0.40 mg/dL Normal 0.20-1.00 [facility] Comment on above: Order Comment: 103-1 Result Comment: For patients on eltrombopag therapy, use of Dimension [place] TBIL is not recommended. Performed By: #### L 100.0500, L500.4050 #### [facility] [address] [place], [address] BUN/CRE 20.3 RATIO High 10-20 [facility] Comment on above: Order Comment: 103-1 Performed By: #### L 100.0500, L500.4050 #### [facility] [address] [place], [address] CA,Total 8.8 mg/dL Normal 8.5-10.1 [facility] Comment on above: Order Comment: 103-1 Performed By: #### L 100.0500, L500.4050 #### [facility] [address] [place], [address] Chloride [Moles/Vol] 108 mmol/L High 98-107 [facility] Comment on above: Order Comment: 103- Performed By: #### L 100.0500, L500.4050 #### [facility] [address] [place], [address] CO2 [Moles/Vol] 26.0 mmol/L Normal 21.0-32.0 [facility] Comment on above: Order Comment: 103- Performed By: #### L 100.0500, L500.4050 #### [facility] [address] [place], [address] Creatinine [Mass/Vol] 0.69 mg/dL Normal 0.55-1.02 [facility] Comment on above: Order Comment: 103-1 Result Comment: The validity of the calculated GFR GFRAA in patients over 70 years has not been determined. Clinical correlation is essential. Performed By: #### L 100.0500, L500.4050 #### [facility] [address] [place], [address] EST GFR - AA 112 mL/min Normal >60 [facility] Comment on above: Order Comment: 103-1 Result Comment: Afri can [place] GFR Calc Performed By: #### L 100.0500, L500.4050 #### [facility] [address] [place], [address] GAP 5 Normal 5-15 [facility] Comment on above: Order Comment: 103-1 Performed By: #### L 100.0500, L500.4050 #### [facility] [address] [place], [address] GFR/1.73 sq M.predicted among non-blacks MDRD (S/P/Bld) [Vol rate/Area] 93 mL/min/{1.73_m2} Normal >60 [facility] Comment on above: Order Comment: 103-1 Result Comment: Non- GFR Calc Performed By: #### L 100.0500, L500.4050 #### [facility] [address] [place], [address] Globulin (S) [Mass/Vol] 3.7 g/dL Normal 2.2-4.2 [facility] Comment on above: Order Comment: 103-1 Performed By: #### L 100.0500, L500.4050 #### [facility] [address] [place], [address] Glucose [Mass/Vol] 105 mg/dL Normal 74-106 [facility] Comment on above: Order Comment: - Result Comment: Fast ing Glucose result from 100 to 125 mg/dL suggests IMPAIRED HOMEOSTASIS per A.D.A. criteria. Performed By: #### L 100.0500, L500.4050 #### [facility] [address] [place], [address] Potassium [Moles/Vol] 4.4 mmol/L Normal 3.5-5.1 [facility] Comment on above: Order Comment: 103-1 Performed By: #### L 100.0500, L500.4050 #### [facility] [address] [place], [address] Sodium [Moles/Vol] 139 mmol/L Normal 136-145 [facility] Comment on above: Order Comment: 103-1 Performed By: #### L 100.0500, L500.4050 #### [facility] [address] [place], [address] T PROT 6.5 g/dL Normal 6.4-8.2 [facility] Comment on above: Order Comment: 103-1 Performed By: #### L 100.0500, L500.4050 #### [facility] [address] [place], [address] Urea nitrogen [Mass/Vol] 14 mg/dL Normal 7-18 [facility] Comment on above: Order Comment: 103-1 Performed By: #### L 100.0500, L500.4050 #### [facility] [address] [place], [address] Erythrocyte distribution wid th ratioOrdered By: Jared Guzman on 10-30-2024 Erythrocyte distribution width (RBC) [Ratio] 14.8 % High 11.6-14.6 [facility] Erythrocyte distribution wid th standard deviationOrdered By: Jared Guzman on 10-30-2024 Erythrocyte distribution width (RBC) [Entitic vol] 46.8 fL High 35.1-43.9 [facility] Estimated glomerular filtrat ion rate (GFR) AmericanOrdered By: Jared Guzman on 10-30-2024 Estimated GFR (MDRD) Amer 112 mL/min >60 [facility] Comment on above: GFR Calc Glomerular filtration rate ( GFR) estimationOrdered By: Jared Guzman on 10-30-2024 Estimated GFR (MDRD) Non-Af Amer 93 mL/min >60 [facility] Comment on above: Non- GFR Calc Glucose measurementOrdered B y: Jared Guzman on 10-30-2024 Glucose [Mass/Vol] 105 mg/dL 74-106 [facility] Comment on above: Fasting Glucose resu lt from 100 to 125 mg/dL suggests IMPAIRED HOMEOSTASIS per A.D.A. criteria. Hematocrit Auto (Bld) [Volum e fraction]Ordered By: Jared Guzman on 10-30-2024 Hematocrit (Bld) [Volume fraction] 32.9 % Low 37-47 [facility] Hemoglobin measurementOrdere d By: Jared Guzman on 10-30-2024 Hemoglobin (Bld) [Mass/Vol] 10.2 g/dL Low 12.0-15.0 [facility] - Chemistry and C hemistry - challengeOrdered By: Jared Guzman on 10-30-2024 AST [Catalytic activity/Vol] 18 U/L 15-37 [facility] MCV (mean corpuscular volume ) determinationOrdered By: Jared Guzman on 10-30-2024 MCV (RBC) [Entitic vol] 87.3 fL 81-99 [facility] Mean corpuscular hemoglobin (MCH) determinationOrdered By: Jared Guzman on 10-30-2024 MCH (RBC) [Entitic mass] 27.1 pg 27.0-32.0 [facility] Mean corpuscular hemoglobin concentration (MCHC) determinationOrdered By: Jared Guzman on 10-30-2024 MCHC (RBC) [Mass/Vol] 31.0 g/dL Low 32-36 [facility] Mean platelet volume determi nationOrdered By: Jared Guzman on 10-30-2024 Platelet mean volume (Bld) [Entitic vol] 9.7 fL 6.2-12.0 [facility] Platelet countOrdered By: Marcel Piper on 10-30-2024 Platelets (Bld) [#/Vol] 387 10*3/uL 150-450 [facility] Potassium measurementOrdered By: Jared Guzman on 10-30-2024 Potassium [Moles/Vol] 4.4 mmol/L 3.5-5.1 [facility] RBC Auto (Bld) [#/Vol]Ordere d By: Jared Guzman on 10-30-2024 RBC (Bld) [#/Vol] 3.77 10*6/uL Low 4.2-5.4 [facility] Serum anion gap measurementO rdered By: Jared Guzman on 10-30-2024 Anion gap [Moles/Vol] 5 mmol/L 5-15 [facility] Serum globulin measurementOr dered By: Jared Guzman on 10-30-2024 Globulin (S) [Mass/Vol] 3.7 g/dL 2.2-4.2 [facility] Serum or plasma alanine jones otransferase (ALT) measurementOrdered By: Jared Guzman on 10-30-2024 ALT [Catalytic activity/Vol] 25 U/L 13-56 [facility] Serum or plasma albumin mauricio urement (mass/volume)Ordered By: Jared Guzman on 10-30-2024 Albumin [Mass/Vol] 2.8 g/dL Low 3.2-5.0 [facility] Serum or plasma alkaline abbey sphatase measurementOrdered By: Jared Guzman on 10-30-2024 ALP [Catalytic activity/Vol] 113 U/L 45-117 [facility] Serum or plasma calcium mauricio urement (mass/volume)Ordered By: Jared Guzman on 10-30-2024 Calcium [Mass/Vol] 8.8 mg/dL 8.5-10.1 [facility] Serum or plasma creatinine m easurement (mass/volume)Ordered By: Jared Guzman on 10-30-2024 Creatinine [Mass/Vol] 0.69 mg/dL 0.55-1.02 [facility] Comment on above: The validity of the calculated GFR & GFRAA in patients over 70 years has not been determined. Clinical correlation is essential. Serum or plasma urea nitroge n measurement (mass/volume)Ordered By: Jared Guzman on 10-30-2024 Urea nitrogen [Mass/Vol] 14 mg/dL 7-18 [facility] Sodium levelOrdered By: Main Guzman on 10-30-2024 Sodium [Moles/Vol] 139 mmol/L 136-145 [facility] Total proteinOrdered By: Mike Guzman on 10-30-2024 Protein [Mass/Vol] 6.5 g/dL 6.4-8.2 [facility] White blood cell (WBC) count Ordered By: Jared Guzman on 10-30-2024 WBC (Bld) [#/Vol] 9.0 10*3/uL 4.4-11.0 [facility] ECG 12-LEADon 2024 ECG 12-LEAD IMPRESSION: Sinus rhythm Left bundle branch block Compared to ECG 10/18/24 No significant change Electronically Signed On 2024 00:25:40 EST by Fermin Melchor Normal [facility] 36on 10-24-2024 36 Shayy called back w josefina scheduled an appointment with Ana Maria on 11/27/24 and another one on 03/27/25 with Thalia. Normal [facility] 36 Normal [facility] CBC (HEMOGRAM)on 10-24-2024 Erythrocyte distribution width (RBC) [Ratio] 13.8 % Normal 11.5-15.0 [facility] Comment on above: Performed By: #### L [id number] ####Shellfish Weigher: KEMAR MOMINHiginioSAAD ([id number])NATI WADEKATIA (SBHLAB)[address] [place] [address] Hematocrit (Bld) [Volume fraction] 39.3 % Normal Male: 40.0-52.0 ; Female: 35.0-47.0 [facility] Comment on above: Performed By: #### L [id number] ####Shellfish Weigher: KEMAR ANDRAE ([id number])[facility]OSPITALWarren [facility]ADECH[facility] MEDICAL CENTEREmmie (SB[facility])[address] [place] [address] Hemoglobin (Bld) [Mass/Vol] 12.3 g/dL Normal 11.7-18.0 [facility] Comment on above: Performed By: #### L [id number] ####Shellfish Weigher: KEMAR ANDRAE ([id number])[facility]PITALWarren [facility] ([facility])[address] [place] [address] MCH (RBC) [Entitic mass] 27.0 pg Normal 26.0-34.0 [facility] Comment on above: Performed By: #### L [id number] ####Shellfish Weigher: KEMAR MOMINHiginioSAAD ([id number])[facility]ITALWarren [facility] MEDICAL CENTEREmmie ([facility])[address] [place] [address] MCHC 31.3 % Normal 30.5-36.0 [facility] Comment on above: Performed By: #### L [id number] ####Shellfish Weigher: KEMAR LUDWIGSAAD ([id number])[facility]ITALWarren WADE[address] [facility]IC[facility] MEDICAL CENTEREmmie ([facility])[address] [place] [address] MCV (RBC) [Entitic vol] 86.2 fL Normal 77.0-99.0 [facility] Comment on above: Performed By: #### L [id number] ####Shellfish Weigher: KEMAR LUDWIGSAAD ([id number])[facility]ITALWarren WADECH[address] [facility] CENTEREmmie ([facility])[address] [place] [address] Platelet mean volume (Bld) [Entitic vol] 9.7 fL Normal 9.0-12.7 [facility] Comment on above: Performed By: #### L [id number] ####Shellfish Weigher: KEMAR ABEBE ([id number])[facility] ([facility])[address] Platelets (Bld) [#/Vol] 465 10*3/uL High 140-440 [facility] Comment on above: Performed By: #### L [id number] ####Shellfish Weigher: KEMAR ABEBE ([id number])[facility] ([facility])[address] RBC (Bld) [#/Vol] 4.56 10*6/uL Normal Male: 4.40-5.90; Female: 3.80-5.20 [facility] Comment on above: Performed By: #### L [id number] ####Shellfish Weigher: KEMAR ABEBE ([id number])[facility] ([facility])[address] [place] [address] WBC (Bld) [#/Vol] 9.8 10*3/uL Normal 3.6-10.7 [facility] Comment on above: Performed By: #### L [id number] ####Shellfish Weigher: KEMAR ABEBE ([id number])[facility] ([facility])[address] [place] [address] CBC panel Auto (Bld)Ordered By: Justin Mao on 10-24-2024 Erythrocyte distribution width (RBC) [Ratio] 13.8 % 11.5 - 15.0 % [facility] Hematocrit (Bld) [Volume fraction] 39.3 % Male: 40.0-52.0 ; Female: 35.0-47.0 [facility] Hemoglobin (Bld) [Mass/Vol] 12.3 g/dL 11.7 - 18.0 g/dL [facility] Interpretation and review of laboratory results Abnormal [facility] MCH (RBC) [Entitic mass] 27 pg 26.0 - 34.0 pg [facility] MCHC (RBC) [Mass/Vol] 31.3 % 30.5 - 36.0 % [facility] MCV (RBC) [Entitic vol] 86.2 fL 77.0 - 99.0 fL [facility] Platelet mean volume (Bld) [Entitic vol] 9.7 fL 9.0 - 12.7 fL [facility] Platelets (Bld) [#/Vol] 465 10*3/uL High 140 - 440 10*3/uL [facility] RBC (Bld) [#/Vol] 4.56 10*6/uL Male: 4.40-5.90; Female: 3.80-5.20 [facility] WBC (Bld) [#/Vol] 9.8 10*3/uL 3.6 - 10.7 10*3/uL [facility] COMPLETE URINALYSISon 2023 BACTERIA (#/HPF) IN URINE Negative Normal Negative [facility] Comment on above: Performed By: #### L [id number] ####Shellfish Weigher: KEMAR ABEBE ([id number])[facility] ([facility])[address] [place] [address] BILIRUBIN, TOTAL PRESENCE IN URINE Negative Normal Negative [facility] Comment on above: Performed By: #### L [id number] ####Shellfish Weigher: KEMAR ABEBE ([id number])[facility] ([facility])[address] [place] [address] Clarity (U) Clear Normal Clear [facility] Comment on above: Performed By: #### L [id number] ####Shellfish Weigher: KEMAR ABEBE ([id number])[facility] ([facility])[address] [place] [address] Color (U) Light Yellow Normal Lt. Yellow [facility] Comment on above: Performed By: #### L [id number] ####Shellfish Weigher: KEMAR ABEBE ([id number])[facility] ([facility])[address] [place] [address] GLUCOSE (MG/DL) IN URINE Normal Normal Normal (<70) [facility] Comment on above: Performed By: #### L [id number] ####Shellfish Weigher: KEMAR ABEBE ([id number])[facility] ([facility])[address] HEMOGLOBIN PRESENCE IN URINE Negative Normal Negative [facility] Comment on above: Performed By: #### L [id number] ####Shellfish Weigher: KEMAR ABEBE ([id number])[facility] ([facility])[address] Ketones Ql (U) Negative Normal Negative [facility] Comment on above: Performed By: #### L [id number] ####Shellfish Weigher: KEMAR ABEBE ([id number])[facility] ([facility])[address] LEUKOCYTE ESTERASE PRESENCE IN URINE BY TEST STRIP Negative Normal Negative [facility] Comment on above: Performed By: #### L [id number] ####Shellfish Weigher: KEMAR ABEBE ([id number])[facility] ([facility])[address] MUCUS (#/LPF) IN URINE SEDIMENT Few Normal Negative [facility] Comment on above: Performed By: #### L [id number] ####Shellfish Weigher: KEMAR ABEBE ([id number])[facility] ([facility])[address] NITRITE PRESENCE IN URINE Negative Normal Negative [facility] Comment on above: Performed By: #### L [id number] ####Shellfish Weigher: KEMAR ABEBE ([id number])[facility] ([facility])[address] NON-SQUAMOUS EPITHELIAL (#/HPF) IN URINE 3-5 Abnormal Negative [facility] Comment on above: Performed By: #### L [id number] ####Shellfish Weigher: KEMAR ABEBE ([id number])[facility] ([facility])[address] pH (U) 7.0 [pH] Normal 5.0-8.0 [facility] Comment on above: Performed By: #### L [id number] ####Shellfish Weigher: KEMAR ABEBE ([id number])[facility] ([facility])[address] Protein (U) [Mass/Vol] 70 mg/dL Abnormal Negative [facility] Comment on above: Performed By: #### L [id number] ####Shellfish Weigher: KEMAR ABEBE ([id number])[facility] [place] ([facility])[address] [place] [address] [place] RBC (#/HPF) IN URINE SEDIMENT 3-5 Abnormal 0-2 [facility] Comment on above: Performed By: #### L [id number] ####Shellfish Weigher: KEMAR ABEBE ([id number])[facility] [place] ([facility])[address] Specific gravity (U) [Rel density] 1.011 Normal 1.005-1.030 [facility] Comment on above: Performed By: #### L [id number] ####Shellfish Weigher: KEMAR ABEBE ([id number])[facility] [place] ([facility])[address] SQUAMOUS EPITHELIAL CELLS (#/HPF) IN URINE SEDIMENT 0-2 Normal 3-5 [facility] Comment on above: Performed By: #### L [id number] ####Shellfish Weigher: KEMAR ABEBE ([id number])[facility] [place] ([facility])[address] UROBILINOGEN (MG/DL) IN URINE Normal Normal Normal (0-1) [facility] Comment on above: Performed By: #### L [id number] ####Shellfish Weigher: KEMAR ABEBE ([id number])[facility] [place] ([facility])[address] [place] [address] [place] WBC (LEUKOCYTE) (#/HPF) IN URINE SEDIMENT 6-10 Abnormal 0-5 [facility] Comment on above: Performed By: #### L [id number] ####Shellfish Weigher: KEMAR ABEBE ([id number])[facility] [place] ([facility])[address] COMPREHENSIVE METABOLIC PANE Gigi 10-24-2024 Albumin [Mass/Vol] 3.0 g/dL Low 3.5-5.0 [facility] Comment on above: Performed By: #### L [id number], [id number] ####Shellfish Weigher: KEMAR ABEBE ([id number])[facility] [place] ([facility])[address] ALP [Catalytic activity/Vol] 117 U/L Normal [facility] Comment on above: Performed By: #### L [id number], LAB17 ####Shellfish Weigher: KEMAR ABEBE ([id number])[facility] [place] ([facility])[address] ALT [Catalytic activity/Vol] 22 U/L Normal [facility] Comment on above: Performed By: #### L [id number], LAB17 ####Shellfish Weigher: KEMAR ABEBE ([id number])[facility] [place] ([facility])[address] Anion gap [Moles/Vol] 10 mmol/L Normal 3-13 [facility] Comment on above: Performed By: #### L [id number], [id number] ####Shellfish Weigher: KEMAR ABEBE ([id number])[facility] [place] ([facility])[address] AST [Catalytic activity/Vol] 28 U/L Normal <34 [facility] Comment on above: Performed By: #### L [id number], LAB17 ####Shellfish Weigher: KEMAR ABEBE ([id number])[facility] [place] ([facility])[address] Bilirubin [Mass/Vol] 0.4 mg/dL Normal <1.2 [facility] Comment on above: Performed By: #### L [id number], LAB17 ####Shellfish Weigher: KEMAR ABEBE ([id number])[facility] [place] ([facility])[address] [place] [address] [place] Calcium [Mass/Vol] 9.3 mg/dL Normal 8.4-10.2 [facility] Comment on above: Performed By: #### L [id number], LAB17 ####Shellfish Weigher: KEMAR ABEBE ([id number])[facility]ITAL[facility] ([facility])[address] [place] [address] [place] Chloride [Moles/Vol] 100 mmol/L Normal 98-107 [facility] Comment on above: Performed By: #### L [id number], LAB17 ####Shellfish Weigher: KEMAR ABEBE ([id number])[facility] ([facility])[address] CO2 [Moles/Vol] 27 mmol/L Normal 22-29 [facility] Comment on above: Performed By: #### L [id number], LAB17 ####Shellfish Weigher: KEMAR ABEBE ([id number])[facility] ([facility])[address] Creatinine [Mass/Vol] 0.84 mg/dL Normal [facility] Comment on above: Performed By: #### L [id number], [id number] ####Shellfish Weigher: KEMAR ABEBE ([id number])[facility] ([facility])[address] [place] [address] [place] GLOMERULAR FILTRATION RATE ML/MIN/1.73 SQ M.PREDICTED 81.2 mL/min/1.73m*2 Normal >60.0 [facility] Comment on above: Result Comment: Calc ulation based on the Chronic Kidney Disease Epidemiology Collaboration (CKD-EPI) equation refit without adjustment for race Performed By: #### L [id number], [id number] ####Shellfish Weigher: KEMAR ABEBE ([id number])[facility] ([facility])[address] [place] [address] [place] Glucose [Mass/Vol] 207 mg/dL High 74-100 [facility] Comment on above: Performed By: #### L [id number], LAB17 ####Shellfish Weigher: KEMAR ABEBE ([id number])[facility] ([facility])[address] Potassium [Moles/Vol] 4.6 mmol/L Normal 3.5-5.1 [facility] Comment on above: Result Comment: [facility] potassium values may be up to 0.5 mmol/L lower than serum values. Performed By: #### L [id number], LAB17 ####Shellfish Weigher: KEMAR ABEBE ([id number])[facility] ([facility])[address] Protein [Mass/Vol] 7.0 g/dL Normal 6.4-8.3 [facility] Comment on above: Performed By: #### L [id number], LAB17 ####Shellfish Weigher: KEMAR ABEBE ([id number])[facility] ([facility])[address] Sodium [Moles/Vol] 137 mmol/L Normal 136-145 [facility] Comment on above: Performed By: #### L [id number], LAB17 ####Shellfish Weigher: KEMAR ABEBE ([id number])[facility] ([facility])[address] Urea nitrogen [Mass/Vol] 15 mg/dL Normal 9-23 [facility] Comment on above: Performed By: #### L [id number], [id number] ####Shellfish Weigher: KEMAR ABEBE ([id number])[facility] ([facility])[address] Comprehensive metabolic 1998 panelOrdered By: Hans Watson on 10-24-2024 Albumin [Mass/Vol] 3 g/dL Low 3.5 - 5.0 g/dL [facility] ALP [Catalytic activity/Vol] 117 U/L [facility] ALT [Catalytic activity/Vol] 22 U/L [facility] Anion gap [Moles/Vol] 10 mmol/L 3 - 13 mmol/L [facility] AST [Catalytic activity/Vol] 28 U/L NINF - 34 U/L [facility] Bilirubin [Mass/Vol] 0.4 mg/dL NINF - 1.2 mg/dL [facility] Calcium [Mass/Vol] 9.3 mg/dL 8.4 - 10. 2 mg/dL [facility] Chloride [Moles/Vol] 100 mmol/L 98 - 10 7 mmol/L [facility] CO2 [Moles/Vol] 27 mmol/L 22 - 29 mmol/L [facility] Creatinine [Mass/Vol] 0.84 mg/dL [facility] GFR/1.73 sq M.predicted (S/P/Bld) [Vol rate/Area] 81.2 mL/min - PINF [facility] Comment on above: Calculation based on the Chronic Kidney Disease Epidemiology Collaboration (CKD-EPI) equation refit without adjustment for race Glucose [Mass/Vol] 207 mg/dL High 74 - 100 mg/dL [facility] Interpretation and review of laboratory results Abnormal [facility] Potassium [Moles/Vol] 4.6 mmol/L 3.5 - 5.1 mmol/L [facility] Comment on above: Plasma potassium helen ues may be up to 0.5 mmol/L lower than serum values. Protein [Mass/Vol] 7 g/dL 6.4 - 8.3 g/dL [facility] Sodium [Moles/Vol] 137 mmol/L 136 - 145 mmol/L [facility] Urea nitrogen [Mass/Vol] 15 mg/dL 9 - 23 mg/dL [facility] ED Nursing Noteon 10-24-2024 ED Nursing Note Pt placed on bedpan, urine sample collected and sent to lab. Normal [facility] ED Nursing Note Pt provided with sandwich and pop, ok per Dr Mixon Normal [facility] ED Nursing Note Normal [facility] ED Nursing Note Pt arrives by Roni Perez MS for blood in urine and change in mental status. Pt has chronic lewis and has blood present. BP elevated, BG 154 (low per SNF because pt is normally in 300 range). Pt is DNR-CCA. Normal [facility] ED Provider Noteon ED Provider Note Normal [facility] HIGH SENSITIVITY TROPONIN, S ERIAL BASELINEon 10-24-2024 TROPONIN HIGH SENSITIVITY BASELINE <3 Normal [facility] Comment on above: Performed By: #### L [id number], [id number] ####Shellfish Weigher: KEMAR ABEBE ([id number])[facility]ITAL[facility] SHERIKATIA (SBHLAB)[address] [place] [address] LACTIC ACID WITH REFLEXon Lactate [Moles/Vol] 1.5 mmol/L Normal 0.5-2.2 [facility] Comment on above: Performed By: #### L [id number] ####Shellfish Weigher: KEMAR ABEBE ([id number])[facility]ITAL[facility] WADEKATIA (SBHLAB)[address] [place] [address] Laboratory - Chemistry and C hemistry - challengeon 10-24-2024 Lactate [Moles/Vol] 1.5 mmol/L 0.5 - 2. 2 mmol/L [facility] Glucose [Mass/Vol] 175 mg/dL High 70 - 100 mg/dL [facility] No Panel Informationon 10-24 Troponin HS, Serial Baseline ng/L ng/L [facility] Interpretation and review of laboratory results Normal [facility] Interpretation and review of laboratory results Abnormal [facility] Performed by: [facility], [address] [place] [address] CLIA ID: [id number] [facility] Urinalysis complete panel (U )on 10-24-2024 Bacteria LM.HPF (Urine sed) [#/Area] Negative Negative /HPF [facility] Bilirubin Ql (U) Negative Negative mg/dL [facility] Clarity (U) Clear Clear [facility] Color (U) Light Yellow Lt. Yellow [facility] Epithelial cells.squamous LM.HPF (Urine sed) [#/Area] 0-2 [facility] Glucose Ql (U) Normal Normal (<70) mg/dL [facility] Hemoglobin Ql (U) Negative Negative mg/dL [facility] Interpretation and review of laboratory results Abnormal [facility] Ketones (U) [Mass/Vol] Negative Negat bernard mg/dL [facility] Leukocyte esterase Test strip Ql (U) Negative Negative Kat/uL [facility] Mucus LM.HPF (Urine sed) [#/Area] Few Negative /LPF [facility] Nitrite Ql (U) Negative Negative [facility] Non-Squamous Epithalial Cells, Urine 3-5 Abnormal Negative /HPF [facility] pH (U) 7.0 [pH] 5.0 - 8.0 pH [facility] Protein (U) [Mass/Vol] 70 mg/dL Abnormal Negative [facility] RBC LM.HPF (Urine sed) [#/Area] 3-5 Abnormal [facility] Specific gravity (U) [Rel density] 1.011 1.005 - 1.030 [facility] Urobilinogen (U) [Mass/Vol] Normal Normal (0-1) mg/dL [facility] WBC LM.HPF (Urine sed) [#/Area] 6-10 Abnormal [facility] [id number] 10-23-2024 [id number] Normal [facility] [id number] Discharge med list transmitted to return back to [facility] via [facility] per TCC request. Normal [facility] [id number] Normal [facility] [id number] DC orders in and sig nazario by Dr. Thomas. HOOP RIVETING MACHINE OPERATOR set up transport. METAL WIRE COATING OPERATOR tasked in [facility] to send DC info [facility] . DC back to [facility] in stable condition. . Normal [facility] CBC W Auto Differential pane l (Bld)on 10-23-2024 Basophils (Bld) [#/Vol] 0.1 10*3/uL 0.0 - 0.2 10*3/uL [facility] Basophils/100 WBC (Bld) 0.7 % 0.0 - 2.0 % [facility] Eosinophils (Bld) [#/Vol] 0.2 10*3/uL 0.0 - 0.5 10*3/uL [facility] Eosinophils/100 WBC (Bld) 2.4 % 0.0 - 6.0 % [facility] Erythrocyte distribution width (RBC) [Ratio] 13.5 % 11.5 - 15.0 % [facility] Hematocrit (Bld) [Volume fraction] 29.9 % Male: 40.0-52.0 ; Female: 35.0-47.0 [facility] Hemoglobin (Bld) [Mass/Vol] 9.5 g/dL Low 11.7 - 18.0 g/dL [facility] Immature granulocytes (Bld) [#/Vol] 0.1 10*3/uL High NINF - 0.1 10*3/uL [facility] Immature granulocytes/100 WBC (Bld) 1.5 % 0.0 - 2.0 % [facility] Interpretation and review of laboratory results Abnormal [facility] Lymphocytes (Bld) [#/Vol] 1.8 10*3/uL 1.0 - 4.3 10*3/uL [facility] Lymphocytes/100 WBC (Bld) 24.6 % 15.0 - 45.0 % [facility] MCH (RBC) [Entitic mass] 27.1 pg 26.0 - 34.0 pg [facility] MCHC (RBC) [Mass/Vol] 31.8 % 30.5 - 36.0 % [facility] MCV (RBC) [Entitic vol] 85.2 fL 77.0 - 99.0 fL [facility] Monocytes (Bld) [#/Vol] 0.8 10*3/uL 0.0 - 0.9 10*3/uL [facility] Monocytes/100 WBC (Bld) 10.6 % 5.0 - 13.0 % [facility] Neutrophils (Bld) [#/Vol] 4.5 10*3/uL 1.8 - 7.5 10*3/uL [facility] Neutrophils/100 WBC (Bld) 60.2 % 38.0 - 82.0 % [facility] Nucleated RBC/100 WBC (Bld) [Ratio] 0 % [facility] Platelet mean volume (Bld) [Entitic vol] 9.6 fL 9.0 - 12.7 fL [facility] Platelets (Bld) [#/Vol] 407 10*3/uL 140 - 440 10*3/uL [facility] RBC (Bld) [#/Vol] 3.51 10*6/uL Male: 4.40-5.90; Female: 3.80-5.20 [facility] WBC (Bld) [#/Vol] 7.5 10*3/uL 3.6 - 10.7 10*3/uL [facility] CBC WITH AUTO DIFFERENTIALon 10-23-2024 Basophils (Bld) [#/Vol] 0.1 10*3/uL Normal 0.0-0.2 [facility] Comment on above: Performed By: #### L [id number] ####Shellfish Weigher: KEMAR ABEBE ([id number])[facility] (SBHLAB)[address] Basophils/100 WBC (Bld) 0.7 % Normal 0.0-2.0 [facility] Comment on above: Performed By: #### L [id number] ####Shellfish Weigher: KEMAR ABEBE ([id number])[facility] [place] (SBHLAB)[address] Eosinophils (Bld) [#/Vol] 0.2 10*3/uL Normal 0.0-0.5 [facility] Comment on above: Performed By: #### L [id number] ####Shellfish Weigher: KEMAR ABEBE ([id number])[facility] [place] (SBHLAB)[address] Eosinophils/100 WBC (Bld) 2.4 % Normal 0.0-6.0 [facility] Comment on above: Performed By: #### L [id number] ####Shellfish Weigher: KEMAR ABEBE ([id number])[facility] [place] (SBHLAB)[address] Erythrocyte distribution width (RBC) [Ratio] 13.5 % Normal 11.5-15.0 [facility] Comment on above: Performed By: #### L [id number] ####Shellfish Weigher: KEMAR ABEBE ([id number])[facility] [place] (SBHLAB)[address] Hematocrit (Bld) [Volume fraction] 29.9 % Normal Male: 40.0-52.0 ; Female: 35.0-47.0 [facility] Comment on above: Performed By: #### L [id number] ####Shellfish Weigher: KEMAR ABEBE ([id number])[facility] (SBHLAB)[address] Hemoglobin (Bld) [Mass/Vol] 9.5 g/dL Low 11.7-18.0 [facility] Comment on above: Performed By: #### L [id number] ####Shellfish Weigher: KEMAR ABEBE ([id number])[facility] (SBHLAB)[address] IMMATURE GRANS % 1.5 % Normal 0.0-2.0 [facility] Comment on above: Performed By: #### L [id number] ####Shellfish Weigher: KEMAR ABEBE ([id number])[facility]A [facility] (SBHLAB)[address] IMMATURE GRANS ABSOLUTE 0.1 10*3/uL High <0.1 [facility] Comment on above: Performed By: #### L [id number] ####Shellfish Weigher: KEMAR ABEBE ([id number])[facility] (SBHLAB)[address] Lymphocytes (Bld) [#/Vol] 1.8 10*3/uL Normal 1.0-4.3 [facility] Comment on above: Performed By: #### L [id number] ####Shellfish Weigher: KEMAR ABEBE ([id number])[facility]ITALA [facility] (SBHLAB)[address] Lymphocytes/100 WBC (Bld) 24.6 % Normal 15.0-45.0 [facility] Comment on above: Performed By: #### L [id number] ####Shellfish Weigher: KEMAR ABEBE ([id number])[facility] [place] (SBHLAB)[address] MCH (RBC) [Entitic mass] 27.1 pg Normal 26.0-34.0 [facility] Comment on above: Performed By: #### L [id number] ####Shellfish Weigher: KEMAR BAEBE ([id number])[facility] [place] (SBHLAB)[address] MCHC 31.8 % Normal 30.5-36.0 [facility] Comment on above: Performed By: #### L [id number] ####Shellfish Weigher: KEMAR LUDWIGSAAD ([id number])[facility] (SBHLAB)[address] MCV (RBC) [Entitic vol] 85.2 fL Normal 77.0-99.0 [facility] Comment on above: Performed By: #### L [id number] ####Shellfish Weigher: KEMAR ABEBE ([id number])[facility] (SBHLAB)[address] Monocytes (Bld) [#/Vol] 0.8 10*3/uL Normal 0.0-0.9 [facility] Comment on above: Performed By: #### L [id number] ####Shellfish Weigher: KEMAR ABEBE ([id number])[facility] (SBHLAB)[address] Monocytes/100 WBC (Bld) 10.6 % Normal 5.0-13.0 [facility] Comment on above: Performed By: #### L [id number] ####Shellfish Weigher: KEMAR LUDWIGSAAD ([id number])[facility] (SBHLAB)[address] NEUTROPHILS ABSOLUTE 4.5 10*3/uL Normal 1.8-7.5 [facility] Comment on above: Performed By: #### L [id number] ####Shellfish Weigher: KEMAR LUDWIGSAAD ([id number])[facility] (SBHLAB)[address] Neutrophils/100 WBC (Bld) 60.2 % Normal 38.0-82.0 [facility] Comment on above: Performed By: #### L [id number] ####Shellfish Weigher: KEMAR ABEBE ([id number])[facility] (SBHLAB)[address] NRBC 0.0 /100 WBCs Normal 0.0-2.0 [facility] Comment on above: Performed By: #### L [id number] ####Shellfish Weigher: KEMAR ABEBE ([id number])[facility]ITALWarren WADECHRISTUS ST[facility] VINCENT PHYSICIANS MEDICAL CENTEREmmie (SBHLAB)[address] Platelet mean volume (Bld) [Entitic vol] 9.6 fL Normal 9.0-12.7 [facility] Comment on above: Performed By: #### L [id number] ####Shellfish Weigher: KEMAR ABEBE ([id number])[facility] (SBHLAB)[address] Platelets (Bld) [#/Vol] 407 10*3/uL Normal 140-440 [facility] Comment on above: Performed By: #### L [id number] ####Shellfish Weigher: KEMAR ABEBE ([id number])[facility] (SBHLAB)[address] [place] [address] RBC (Bld) [#/Vol] 3.51 10*6/uL Normal Male: 4.40-5.90; Female: 3.80-5.20 [facility] Comment on above: Performed By: #### L [id number] ####Shellfish Weigher: KEMAR ABEBE ([id number])[facility] (SBAB)[address] [place] [address] WBC (Bld) [#/Vol] 7.5 10*3/uL Normal 3.6-10.7 [facility] Comment on above: Performed By: #### L [id number] ####Shellfish Weigher: KEMAR ABEBE ([id number])[facility] (SBHLAB)[address] COMPREHENSIVE METABOLIC PANE Gigi 10-23-2024 Albumin [Mass/Vol] 2.6 g/dL Low 3.5-5.0 [facility] Comment on above: Performed By: #### L AB17, [id number] ####Shellfish Weigher: KEMAR ABEBE ([id number])[facility] (SBHLAB)[address] ALP [Catalytic activity/Vol] 115 U/L Normal [facility] Comment on above: Performed By: #### L AB17, [id number] ####Shellfish Weigher: KEMAR ABEBE ([id number])[facility] (SBHLAB)[address] ALT [Catalytic activity/Vol] 27 U/L Normal [facility] Comment on above: Performed By: #### L AB17, [id number] ####Shellfish Weigher: KEMAR ABEBE ([id number])[facility] (SBHLAB)[address] Anion gap [Moles/Vol] 7 mmol/L Normal 3-13 [facility] Comment on above: Performed By: #### L AB17, [id number] ####Shellfish Weigher: KEMAR ABEBE ([id number])[facility] [place] (SBHLAB)[address] AST [Catalytic activity/Vol] 18 U/L Normal <34 [facility] Comment on above: Performed By: #### L AB17, [id number] ####Shellfish Weigher: KEMAR ABEBE ([id number])[facility] (SBHLAB)[address] Bilirubin [Mass/Vol] 0.3 mg/dL Normal <1.2 [facility] Comment on above: Performed By: #### L AB17, [id number] ####Shellfish Weigher: KEMAR ABEBE ([id number])[facility] [place] (SBHLAB)[address] [place] [address] [place] Calcium [Mass/Vol] 8.7 mg/dL Normal 8.4-10.2 [facility] Comment on above: Performed By: #### L AB17, [id number] ####Shellfish Weigher: KEMAR ABEBE ([id number])[facility] (SBHLAB)[address] Chloride [Moles/Vol] 101 mmol/L Normal 98-107 [facility] Comment on above: Performed By: #### L AB17, [id number] ####Shellfish Weigher: KEMAR ABEBE ([id number])[facility]ITAL[facility] (SBHLAB)[address] CO2 [Moles/Vol] 29 mmol/L Normal 22-29 [facility] Comment on above: Performed By: #### L AB17, [id number] ####Shellfish Weigher: KEMAR ABEBE ([id number])[facility] (SBHLAB)[address] Creatinine [Mass/Vol] 0.84 mg/dL Normal [facility] Comment on above: Performed By: #### L AB17, [id number] ####Shellfish Weigher: KEMAR ABEBE ([id number])[facility] (SBHLAB)[address] GLOMERULAR FILTRATION RATE ML/MIN/1.73 SQ M.PREDICTED 81.2 mL/min/1.73m*2 Normal >60.0 [facility] Comment on above: Result Comment: Calc ulation based on the Chronic Kidney Disease Epidemiology Collaboration (CKD-EPI) equation refit without adjustment for race Performed By: #### L AB17, [id number] ####Shellfish Weigher: KEMAR ABEBE ([id number])[facility]ITALWar[facility] (SBHLAB)[address] [place] [address] [place] Glucose [Mass/Vol] 214 mg/dL High 74-100 [facility] Comment on above: Performed By: #### L AB17, [id number] ####Shellfish Weigher: KEMAR ABEBE ([id number])[facility] (SBHLAB)[address] Potassium [Moles/Vol] 3.4 mmol/L Low 3.5-5.1 [facility] Comment on above: Result Comment: [facility] potassium values may be up to 0.5 mmol/L lower than serum values. Performed By: #### L AB17, [id number] ####Shellfish Weigher: KEMAR ANDRAE ([id number])[facility]ITAL[facility] (SBHLAB)[address] Protein [Mass/Vol] 6.1 g/dL Low 6.4-8.3 [facility] Comment on above: Performed By: #### L AB17, [id number] ####Shellfish Weigher: KEMAR MOMINHARRISON ([id number])[facility]ITAL[facility] [place] (SBHLAB)[address] Sodium [Moles/Vol] 137 mmol/L Normal 136-145 [facility] Comment on above: Performed By: #### L AB17, [id number] ####Shellfish Weigher: KEMAR MOMINHARRISON ([id number])[facility]ITAL[facility] (SBHLAB)[address] Urea nitrogen [Mass/Vol] 21 mg/dL Normal 9-23 [facility] Comment on above: Performed By: #### L AB17, [id number] ####Shellfish Weigher: KEMAR ANDRAE ([id number])[facility] [place] (SBHLAB)[address] Comprehensive metabolic 1998 panelon 10-23-2024 Albumin [Mass/Vol] 2.6 g/dL Low 3.5 - 5.0 g/dL [facility] ALP [Catalytic activity/Vol] 115 U/L [facility] ALT [Catalytic activity/Vol] 27 U/L [facility] Anion gap [Moles/Vol] 7 mmol/L 3 - 13 mmol/L [facility] AST [Catalytic activity/Vol] 18 U/L NINF - 34 U/L [facility] Bilirubin [Mass/Vol] 0.3 mg/dL NINF - 1.2 mg/dL [facility] Calcium [Mass/Vol] 8.7 mg/dL 8.4 - 10. 2 mg/dL [facility] Chloride [Moles/Vol] 101 mmol/L 98 - 10 7 mmol/L [facility] CO2 [Moles/Vol] 29 mmol/L 22 - 29 mmol/L [facility] Creatinine [Mass/Vol] 0.84 mg/dL [facility] GFR/1.73 sq M.predicted (S/P/Bld) [Vol rate/Area] 81.2 mL/min - PINF [facility] Comment on above: Calculation based on the Chronic Kidney Disease Epidemiology Collaboration (CKD-EPI) equation refit without adjustment for race Glucose [Mass/Vol] 214 mg/dL High 74 - 100 mg/dL [facility] Interpretation and review of laboratory results Abnormal [facility] Potassium [Moles/Vol] 3.4 mmol/L Low 3.5 - 5.1 mmol/L [facility] Comment on above: Plasma potassium helen ues may be up to 0.5 mmol/L lower than serum values. Protein [Mass/Vol] 6.1 g/dL Low 6.4 - 8.3 g/dL [facility] Sodium [Moles/Vol] 137 mmol/L 136 - 145 mmol/L [facility] Urea nitrogen [Mass/Vol] 21 mg/dL 9 - 23 mg/dL [facility] - Chemistry and C hemistry - challengeon 10-23-2024 Glucose [Mass/Vol] 309 mg/dL High 70 - 100 mg/dL [facility] Glucose [Mass/Vol] 296 mg/dL High 70 - 100 mg/dL [facility] Glucose [Mass/Vol] 240 mg/dL High 70 - 100 mg/dL [facility] Magnesium [Mass/Vol] 1.9 mg/dL 1.6 - 2 .6 mg/dL [facility] MAGNESIUMon 10-23-2024 Magnesium [Mass/Vol] 1.9 mg/dL Normal 1.6-2.6 [facility] Comment on above: Result Comment: MARIE Doshi COMMENTS:Higher values can be expected in females during menses. Performed By: #### L AB17, [id number] ####Shellfish Weigher: KEMAR ABEBE ([id number])[facility] (SBHLAB)[address] [place] [address] Magnesium [Mass/Vol]on 10-23 Interpretation and review of laboratory results Normal [facility] Higher values can be expected in females during menses. [facility] No Panel Informationon 10-23 Interpretation and review of laboratory results Abnormal [facility] Performed by: [facility], [address] [facility] [address] CLIA ID: [id number] [facility] Interpretation and review of laboratory results Abnormal [facility] Performed by: [facility], [address] [facility], [facility] [address] CLIA ID: [id number] [facility] Interpretation and review of laboratory results Abnormal [facility] Performed by: [facility], [address] [facility], [facility] [address] CLIA ID: [id number] [facility] Nursing Noteon 10-23-2024 Nursing Note Report called to Cassy kelley RN at [facility]. Normal [facility] Progress Noteon 10-23-2024 Progress Note Normal [facility] Progress Note Normal [facility] Progress Note Normal [facility] 30on 10-22-2024 30 Normal [facility] 30 Normal [facility] Bacteria identified Aer cx N om (Unsp spec)Ordered By: Timi Ryder on 10-22-2024 Gram Stain Result Few Polymorphonuclea r leukocytes per low power field [facility] Gram Stain Result No organisms seen [facility] CBC W Auto Differential pane l (Bld)on 10-22-2024 Basophils (Bld) [#/Vol] 0.1 10*3/uL 0.0 - 0.2 10*3/uL [facility] Basophils/100 WBC (Bld) 0.5 % 0.0 - 2.0 % [facility] Eosinophils (Bld) [#/Vol] 0.2 10*3/uL 0.0 - 0.5 10*3/uL [facility] Eosinophils/100 WBC (Bld) 1.7 % 0.0 - 6.0 % [facility] Erythrocyte distribution width (RBC) [Ratio] 13.5 % 11.5 - 15.0 % [facility] Hematocrit (Bld) [Volume fraction] 30 % Male: 40.0-52.0 ; Female: 35.0-47.0 [facility] Hemoglobin (Bld) [Mass/Vol] 9.7 g/dL Low 11.7 - 18.0 g/dL [facility] Immature granulocytes (Bld) [#/Vol] 0.1 10*3/uL High NINF - 0.1 10*3/uL [facility] Immature granulocytes/100 WBC (Bld) 1.1 % 0.0 - 2.0 % [facility] Interpretation and review of laboratory results Abnormal [facility] Lymphocytes (Bld) [#/Vol] 1.6 10*3/uL 1.0 - 4.3 10*3/uL [facility] Lymphocytes/100 WBC (Bld) 15.9 % 15.0 - 45.0 % [facility] MCH (RBC) [Entitic mass] 27.2 pg 26.0 - 34.0 pg [facility] MCHC (RBC) [Mass/Vol] 32.3 % 30.5 - 36.0 % [facility] MCV (RBC) [Entitic vol] 84.3 fL 77.0 - 99.0 fL [facility] Monocytes (Bld) [#/Vol] 0.8 10*3/uL 0.0 - 0.9 10*3/uL [facility] Monocytes/100 WBC (Bld) 8.2 % 5.0 - 13.0 % [facility] Neutrophils (Bld) [#/Vol] 7.1 10*3/uL 1.8 - 7.5 10*3/uL [facility] Neutrophils/100 WBC (Bld) 72.6 % 38.0 - 82.0 % [facility] Nucleated RBC/100 WBC (Bld) [Ratio] 0 % [facility] Platelet mean volume (Bld) [Entitic vol] 9.5 fL 9.0 - 12.7 fL [facility] Platelets (Bld) [#/Vol] 419 10*3/uL 140 - 440 10*3/uL [facility] RBC (Bld) [#/Vol] 3.56 10*6/uL Male: 4.40-5.90; Female: 3.80-5.20 [facility] WBC (Bld) [#/Vol] 9.7 10*3/uL 3.6 - 10.7 10*3/uL [facility] CBC WITH AUTO DIFFERENTIALon 10-22-2024 Basophils (Bld) [#/Vol] 0.1 10*3/uL Normal 0.0-0.2 [facility] Comment on above: Performed By: #### L [id number] ####Shellfish Weigher: KEMAR BANUELOSCER ([id number])[facility] (SBHLAB)[address] Basophils/100 WBC (Bld) 0.5 % Normal 0.0-2.0 [facility] Comment on above: Performed By: #### L [id number] ####Shellfish Weigher: KEMAR LUDWIGSAAD ([id number])[facility] (SBHLAB)[address] Eosinophils (Bld) [#/Vol] 0.2 10*3/uL Normal 0.0-0.5 [facility] Comment on above: Performed By: #### L [id number] ####Shellfish Weigher: KEMAR MOMINHARRISON ([id number])[facility] (SBHLAB)[address] [place] [address] Eosinophils/100 WBC (Bld) 1.7 % Normal 0.0-6.0 [facility] Comment on above: Performed By: #### L [id number] ####Shellfish Weigher: KEMAR LUDWIGSAAD ([id number])[facility] [place] (SBHLAB)[address] [place] [address] Erythrocyte distribution width (RBC) [Ratio] 13.5 % Normal 11.5-15.0 [facility] Comment on above: Performed By: #### L [id number] ####Shellfish Weigher: KEMAR LUDWIGSAAD ([id number])[facility] [place] (SBHLAB)[address] [place] [address] Hematocrit (Bld) [Volume fraction] 30.0 % Normal Male: 40.0-52.0 ; Female: 35.0-47.0 [facility] Comment on above: Performed By: #### L [id number] ####Shellfish Weigher: KEMAR LUDWIGSAAD ([id number])[facility] [place] (SBHLAB)[address] Hemoglobin (Bld) [Mass/Vol] 9.7 g/dL Low 11.7-18.0 [facility] Comment on above: Performed By: #### L [id number] ####Shellfish Weigher: KEMAR ABEBE ([id number])[facility] (SBHLAB)[address] IMMATURE GRANS % 1.1 % Normal 0.0-2.0 [facility] Comment on above: Performed By: #### L [id number] ####Shellfish Weigher: KEMAR ABEBE ([id number])[facility] (SBHLAB)[address] IMMATURE GRANS ABSOLUTE 0.1 10*3/uL High <0.1 [facility] Comment on above: Performed By: #### L [id number] ####Shellfish Weigher: KEMAR ABEBE ([id number])[facility] (SBHLAB)[address] [place] [address] Lymphocytes (Bld) [#/Vol] 1.6 10*3/uL Normal 1.0-4.3 [facility] Comment on above: Performed By: #### L [id number] ####Shellfish Weigher: KEMAR ABEBE ([id number])[facility] (SBAB)[address] Lymphocytes/100 WBC (Bld) 15.9 % Normal 15.0-45.0 [facility] Comment on above: Performed By: #### L [id number] ####Shellfish Weigher: KEMAR ABEBE ([id number])[facility] (SBHLAB)[address] MCH (RBC) [Entitic mass] 27.2 pg Normal 26.0-34.0 [facility] Comment on above: Performed By: #### L [id number] ####Shellfish Weigher: KEMAR ABEBE ([id number])[facility] [place] [address] MCHC 32.3 % Normal 30.5-36.0 [facility] Comment on above: Performed By: #### L [id number] ####Shellfish Weigher: KEMAR ABEBE ([id number])[facility] (SBHLAB)[address] MCV (RBC) [Entitic vol] 84.3 fL Normal 77.0-99.0 [facility] Comment on above: Performed By: #### L [id number] ####Shellfish Weigher: KEAMR ABEBE ([id number])[facility] (SBHLAB)[address] Monocytes (Bld) [#/Vol] 0.8 10*3/uL Normal 0.0-0.9 [facility] Comment on above: Performed By: #### L [id number] ####Shellfish Weigher: KEMAR ABEBE ([id number])[facility] ([facility])[address] Monocytes/100 WBC (Bld) 8.2 % Normal 5.0-13.0 [facility] Comment on above: Performed By: #### L [id number] ####Shellfish Weigher: KEMAR LUDWIGSAAD ([id number])[facility] [place] ([facility])[address] NEUTROPHILS ABSOLUTE 7.1 10*3/uL Normal 1.8-7.5 [facility] Comment on above: Performed By: #### L [id number] ####Shellfish Weigher: KEMAR ABEBE ([id number])[facility] [place] (SB[facility])[address] Neutrophils/100 WBC (Bld) 72.6 % Normal 38.0-82.0 [facility] Comment on above: Performed By: #### L [id number] ####Shellfish Weigher: KEMAR ABEBE ([id number])[facility] [place] (SB[facility])[address] NRBC 0.0 /100 WBCs Normal 0.0-2.0 [facility] Comment on above: Performed By: #### L [id number] ####Shellfish Weigher: KEMAR ABEBE ([id number])[facility] KASPEREmmie (SBHLAB)[address] Platelet mean volume (Bld) [Entitic vol] 9.5 fL Normal 9.0-12.7 [facility] Comment on above: Performed By: #### L [id number] ####Shellfish Weigher: KEMAR ABEBE ([id number])[facility] CENTEREmm[facility] (SBHLAB)[address] Platelets (Bld) [#/Vol] 419 10*3/uL Normal 140-440 [facility] Comment on above: Performed By: #### L [id number] ####Shellfish Weigher: KEMAR ABEBE ([id number])[facility] CENTEREmmie (SBHLAB)[address] RBC (Bld) [#/Vol] 3.56 10*6/uL Normal Male: 4.40-5.90; Female: 3.80-5.20 [facility] Comment on above: Performed By: #### L [id number] ####Shellfish Weigher: KEMRA ABEBE ([phone])[facility] [place] (SBHLAB)[address] [place] [address] WBC (Bld) [#/Vol] 9.7 10*3/uL Normal 3.6-10.7 [facility] Comment on above: Performed By: #### L [id number] ####Shellfish Weigher: KEMAR ABEBE ([id number])[facility]ENTEREmm[facility] (SBHLAB)[address] COMPREHENSIVE METABOLIC PANE Gigi 10-22-2024 Albumin [Mass/Vol] 2.7 g/dL Low 3.5-5.0 [facility] Comment on above: Performed By: #### L AB17, [id number] ####Shellfish Weigher: KEMAR ABEBE ([id number])[facility] CENTERE[facility] (SBHLAB)[address] ALP [Catalytic activity/Vol] 127 U/L Normal [facility] Comment on above: Performed By: #### L AB17, [id number] ####Shellfish Weigher: KEMAR ABEBE ([id number])[facility] [place] (SBHLAB)[address] ALT [Catalytic activity/Vol] 32 U/L Normal [facility] Comment on above: Performed By: #### L AB17, [id number] ####Shellfish Weigher: KEMAR ABEBE ([id number])[facility]A [facility]ER[facility]ENTERN (SBHLAB)[address] Anion gap [Moles/Vol] 11 mmol/L Normal 3-13 [facility] Comment on above: Performed By: #### L AB17, [id number] ####Shellfish Weigher: KEMAR ABEBE ([id number])[facility] [place] (SBHLAB)[address] AST [Catalytic activity/Vol] 19 U/L Normal <34 [facility] Comment on above: Performed By: #### L AB17, [id number] ####Shellfish Weigher: KEMAR ABEBE ([id number])[facility] [place] ([facility])[address] Bilirubin [Mass/Vol] 0.3 mg/dL Normal <1.2 [facility] Comment on above: Performed By: #### L AB17, [id number] ####Shellfish Weigher: KEMAR ABEBE ([id number])[facility] (SB[facility])[address] Calcium [Mass/Vol] 8.7 mg/dL Normal 8.4-10.2 [facility] Comment on above: Performed By: #### L AB17, [id number] ####Shellfish Weigher: KEMAR ABEBE ([id number])[facility]ER[facility] (SBHLAB)[address] Chloride [Moles/Vol] 104 mmol/L Normal 98-107 [facility] Comment on above: Performed By: #### L AB17, [id number] ####Shellfish Weigher: KEMAR ABEBE ([id number])[facility]ITAL[facility] (SBHLAB)[address] CO2 [Moles/Vol] 24 mmol/L Normal 22-29 [facility] Comment on above: Performed By: #### L AB17, [id number] ####Shellfish Weigher: KEMAR ABEBE ([id number])[facility] (SBHLAB)[address] Creatinine [Mass/Vol] 1.05 mg/dL Normal [facility] Comment on above: Performed By: #### L AB17, [id number] ####Shellfish Weigher: KEMAR ABEBE ([id number])[facility] (HLAB)[address] GLOMERULAR FILTRATION RATE ML/MIN/1.73 SQ M.PREDICTED 62.1 mL/min/1.73m*2 Normal >60.0 [facility] Comment on above: Result Comment: Calc ulation based on the Chronic Kidney Disease Epidemiology Collaboration (CKD-EPI) equation refit without adjustment for race Performed By: #### L AB17, [id number] ####Shellfish Weigher: KEMAR ABEBE ([id number])[facility] (HLAB)[address] Glucose [Mass/Vol] 148 mg/dL High 74-100 [facility] Comment on above: Performed By: #### L AB17, [id number] ####Shellfish Weigher: KEMAR ABEBE ([id number])[facility] (SBHLAB)[address] [place] [address] [place] Potassium [Moles/Vol] 3.3 mmol/L Low 3.5-5.1 [facility] Comment on above: Result Comment: [facility] potassium values may be up to 0.5 mmol/L lower than serum values. Performed By: #### L AB17, [id number] ####Shellfish Weigher: KEMAR ABEBE ([id number])[facility] (SBHLAB)[address] Protein [Mass/Vol] 6.4 g/dL Normal 6.4-8.3 [facility] Comment on above: Performed By: #### L AB17, [id number] ####Shellfish Weigher: KEMAR MOMINHARRISON ([id number])[facility]ITAL[facility] [place] (SBHLAB)[address] Sodium [Moles/Vol] 139 mmol/L Normal 136-145 [facility] Comment on above: Performed By: #### L AB17, [id number] ####Shellfish Weigher: KEMAR MOMINHARRISON ([id number])[facility] (SBHLAB)[address] Urea nitrogen [Mass/Vol] 35 mg/dL High 9-23 [facility] Comment on above: Performed By: #### L AB17, [id number] ####Shellfish Weigher: KEMAR MOMINHARRISON ([id number])[facility] (SBHLAB)[address] Comprehensive metabolic 1998 panelon 10-22-2024 Albumin [Mass/Vol] 2.7 g/dL Low 3.5 - 5.0 g/dL [facility] ALP [Catalytic activity/Vol] 127 U/L [facility] ALT [Catalytic activity/Vol] 32 U/L [facility] Anion gap [Moles/Vol] 11 mmol/L 3 - 13 mmol/L [facility] AST [Catalytic activity/Vol] 19 U/L [facility] - 34 U/L [facility] Bilirubin [Mass/Vol] 0.3 mg/dL [facility] - 1.2 mg/dL [facility] Calcium [Mass/Vol] 8.7 mg/dL 8.4 - 10. 2 mg/dL [facility] Chloride [Moles/Vol] 104 mmol/L 98 - 10 7 mmol/L [facility] CO2 [Moles/Vol] 24 mmol/L 22 - 29 mmol/L [facility] Creatinine [Mass/Vol] 1.05 mg/dL [facility] GFR/1.73 sq M.predicted (S/P/Bld) [Vol rate/Area] 62.1 mL/min - PINF [facility] Comment on above: Calculation based on the Chronic Kidney Disease Epidemiology Collaboration (CKD-EPI) equation refit without adjustment for race Glucose [Mass/Vol] 148 mg/dL High 74 - 100 mg/dL [facility] Interpretation and review of laboratory results Abnormal [facility] Potassium [Moles/Vol] 3.3 mmol/L Low 3.5 - 5.1 mmol/L [facility] Comment on above: Plasma potassium helen ues may be up to 0.5 mmol/L lower than serum values. Protein [Mass/Vol] 6.4 g/dL 6.4 - 8.3 g/dL [facility] Sodium [Moles/Vol] 139 mmol/L 136 - 145 mmol/L [facility] Urea nitrogen [Mass/Vol] 35 mg/dL High 9 - 23 mg/dL [facility] - Chemistry and C hemistry - challengeon 10-22-2024 Glucose [Mass/Vol] 312 mg/dL High 70 - 100 mg/dL [facility] Glucose [Mass/Vol] 283 mg/dL High 70 - 100 mg/dL [facility] Glucose [Mass/Vol] 295 mg/dL High 70 - 100 mg/dL [facility] Glucose [Mass/Vol] 258 mg/dL High 70 - 100 mg/dL [facility] Glucose [Mass/Vol] 210 mg/dL High 70 - 100 mg/dL [facility] Magnesium [Mass/Vol] 2 mg/dL 1.6 - 2 .6 mg/dL [facility] - Microbiology an d Antimicrobial susceptibilityOrdered By: Timi Ryder on 10-22-2024 Bacteria identified Aer cx Nom (Unsp spec) No growth at 72 hours [facility] MAGNESIUMon 10-22-2024 Magnesium [Mass/Vol] 2.0 mg/dL Normal 1.6-2.6 [facility] Comment on above: Result Comment: MARIE Doshi COMMENTS:Higher values can be expected in females during menses. Performed By: #### L AB17, [id number] ####Shellfish Weigher: KEMAR ABEBE ([phone])[facility] [place] [address] Magnesium [Mass/Vol]on 10-22 Interpretation and review of laboratory results Normal [facility] Higher values can be expected in females during menses. [facility] No Panel Informationon 10-22 Interpretation and review of laboratory results Abnormal [facility] Performed by: [facility], [address], [facility] [address] CLIA ID: [id number] [facility] Interpretation and review of laboratory results Abnormal [facility] Performed by: [facility], [address], [facility] [address] CLIA ID: [id number] [facility] Interpretation and review of laboratory results Abnormal [facility] Performed by: [facility], [address], [facility] [address] CLIA ID: [id number] [facility] Interpretation and review of laboratory results Abnormal [facility] Performed by: [facility], [address], [facility] [address] CLIA ID: [id number] [facility] Progress Noteon 10-22-2024 Progress Note Normal [facility] Progress Note Normal [facility] [id number] 10-21-2024 [id number] Normal [facility] CBC W Auto Differential pane l (Bld)on 10-21-2024 Basophils (Bld) [#/Vol] 0.1 10*3/uL 0.0 - 0.2 10*3/uL [facility] Basophils/100 WBC (Bld) 0.6 % 0.0 - 2.0 % [facility] Eosinophils (Bld) [#/Vol] 0.2 10*3/uL 0.0 - 0.5 10*3/uL [facility] Eosinophils/100 WBC (Bld) 1.6 % 0.0 - 6.0 % [facility] Erythrocyte distribution width (RBC) [Ratio] 13.4 % 11.5 - 15.0 % [facility] Hematocrit (Bld) [Volume fraction] 31.6 % Male: 40.0-52.0 ; Female: 35.0-47.0 [facility] Hemoglobin (Bld) [Mass/Vol] 10.2 g/dL Low 11.7 - 18.0 g/dL [facility] Immature granulocytes (Bld) [#/Vol] 0.1 10*3/uL High NINF - 0.1 10*3/uL [facility] Immature granulocytes/100 WBC (Bld) 0.8 % 0.0 - 2.0 % [facility] Interpretation and review of laboratory results Abnormal [facility] Lymphocytes (Bld) [#/Vol] 1.8 10*3/uL 1.0 - 4.3 10*3/uL [facility] Lymphocytes/100 WBC (Bld) 15.3 % 15.0 - 45.0 % [facility] MCH (RBC) [Entitic mass] 27.3 pg 26.0 - 34.0 pg [facility] MCHC (RBC) [Mass/Vol] 32.3 % 30.5 - 36.0 % [facility] MCV (RBC) [Entitic vol] 84.7 fL 77.0 - 99.0 fL [facility] Monocytes (Bld) [#/Vol] 0.8 10*3/uL 0.0 - 0.9 10*3/uL [facility] Monocytes/100 WBC (Bld) 6.8 % 5.0 - 13.0 % [facility] Neutrophils (Bld) [#/Vol] 8.9 10*3/uL High 1.8 - 7.5 10*3/uL [facility] Neutrophils/100 WBC (Bld) 74.9 % 38.0 - 82.0 % [facility] Nucleated RBC/100 WBC (Bld) [Ratio] 0 % [facility] Platelet mean volume (Bld) [Entitic vol] 9.7 fL 9.0 - 12.7 fL [facility] Platelets (Bld) [#/Vol] 396 10*3/uL 140 - 440 10*3/uL [facility] RBC (Bld) [#/Vol] 3.73 10*6/uL Male: 4.40-5.90; Female: 3.80-5.20 [facility] WBC (Bld) [#/Vol] 11.9 10*3/uL High 3.6 - 10.7 10*3/uL [facility] CBC WITH AUTO DIFFERENTIALon 10-21-2024 Basophils (Bld) [#/Vol] 0.1 10*3/uL Normal 0.0-0.2 [facility] Comment on above: Performed By: #### L [id number] ####Shellfish Weigher: KEMAR ABEBE ([id number])[facility] [place] (SBHLAB)[address] Basophils/100 WBC (Bld) 0.6 % Normal 0.0-2.0 [facility] Comment on above: Performed By: #### L [id number] ####Shellfish Weigher: KEMAR ABEBE ([id number])[facility] [place] (SBHLAB)[address] Eosinophils (Bld) [#/Vol] 0.2 10*3/uL Normal 0.0-0.5 [facility] Comment on above: Performed By: #### L [id number] ####Shellfish Weigher: KEMAR ABEBE ([id number])[facility] [place] ([facility])[address] Eosinophils/100 WBC (Bld) 1.6 % Normal 0.0-6.0 [facility] Comment on above: Performed By: #### L [id number] ####Shellfish Weigher: KEMAR ABEBE ([id number])[facility] [place] (SBHLAB)[address] [place] [address] Erythrocyte distribution width (RBC) [Ratio] 13.4 % Normal 11.5-15.0 [facility] Comment on above: Performed By: #### L [id number] ####Shellfish Weigher: KEMAR ABEBE ([id number])[facility] (SBHLAB)[address] [place] [address] Hematocrit (Bld) [Volume fraction] 31.6 % Normal Male: 40.0-52.0 ; Female: 35.0-47.0 [facility] Comment on above: Performed By: #### L [id number] ####Shellfish Weigher: KEMAR ABEBE ([id number])[facility] [place] (SB[facility])[address] Hemoglobin (Bld) [Mass/Vol] 10.2 g/dL Low 11.7-18.0 [facility] Comment on above: Performed By: #### L [id number] ####Shellfish Weigher: KEMAR ABEBE ([id number])[facility] (SB[facility]AB)[address] IMMATURE GRANS % 0.8 % Normal 0.0-2.0 [facility] Comment on above: Performed By: #### L [id number] ####Shellfish Weigher: KEMAR ABEBE ([id number])[facility] [place] ([facility])[address] IMMATURE GRANS ABSOLUTE 0.1 10*3/uL High <0.1 [facility] Comment on above: Performed By: #### L [id number] ####Shellfish Weigher: KEMAR ABEBE ([id number])[facility] [place] (SB[facility]AB)[address] Lymphocytes (Bld) [#/Vol] 1.8 10*3/uL Normal 1.0-4.3 [facility] Comment on above: Performed By: #### L [id number] ####Shellfish Weigher: KEMAR ABEBE ([id number])[facility] [place] ([facility])[address] Lymphocytes/100 WBC (Bld) 15.3 % Normal 15.0-45.0 [facility] Comment on above: Performed By: #### L [id number] ####Shellfish Weigher: KEMAR ABEBE ([id number])[facility] [place] (SB[facility])[address] MCH (RBC) [Entitic mass] 27.3 pg Normal 26.0-34.0 [facility] Comment on above: Performed By: #### L [id number] ####Shellfish Weigher: KEMAR ABEBE ([id number])[facility] [place] ([facility])[address] MCHC 32.3 % Normal 30.5-36.0 [facility] Comment on above: Performed By: #### L [id number] ####Shellfish Weigher: KEMAR ABEBE ([id number])[facility] [place] (SBHLAB)[address] MCV (RBC) [Entitic vol] 84.7 fL Normal 77.0-99.0 [facility] Comment on above: Performed By: #### L [id number] ####Shellfish Weigher: KEMAR ABEBE ([id number])[facility] [place] (SBHLAB)[address] Monocytes (Bld) [#/Vol] 0.8 10*3/uL Normal 0.0-0.9 [facility] Comment on above: Performed By: #### L [id number] ####Shellfish Weigher: KEMAR ABEBE ([id number])[facility] [place] (SBHLAB)[address] Monocytes/100 WBC (Bld) 6.8 % Normal 5.0-13.0 [facility] Comment on above: Performed By: #### L [id number] ####Shellfish Weigher: KEMAR ABEBE ([id number])[facility] [place] (SBHLAB)[address] NEUTROPHILS ABSOLUTE 8.9 10*3/uL High 1.8-7.5 [facility] Comment on above: Performed By: #### L [id number] ####Shellfish Weigher: KEMAR ABEBE ([id number])[facility] [place] (SBHLAB)[address] Neutrophils/100 WBC (Bld) 74.9 % Normal 38.0-82.0 [facility] Comment on above: Performed By: #### L [id number] ####Shellfish Weigher: KEMAR ABEBE ([id number])[facility] [place] (SBHLAB)[address] [place] [address] [place] NRBC 0.0 /100 WBCs Normal 0.0-2.0 [facility] Comment on above: Performed By: #### L [id number] ####Shellfish Weigher: KEMAR ABEBE ([id number])[facility] [place] (SBHLAB)[address] Platelet mean volume (Bld) [Entitic vol] 9.7 fL Normal 9.0-12.7 [facility] Comment on above: Performed By: #### L [id number] ####Shellfish Weigher: KEMAR ABEBE ([phone])[facility] (SBHLAB)[address] Platelets (Bld) [#/Vol] 396 10*3/uL Normal 140-440 [facility] Comment on above: Performed By: #### L [id number] ####Shellfish Weigher: KEMAR ABEBE ([id number])[facility] (SBHLAB)[address] RBC (Bld) [#/Vol] 3.73 10*6/uL Normal Male: 4.40-5.90; Female: 3.80-5.20 [facility] Comment on above: Performed By: #### L [id number] ####Shellfish Weigher: KEMAR ABEBE ([phone])[facility] (SBHLAB)[address] [place] [address] WBC (Bld) [#/Vol] 11.9 10*3/uL High 3.6-10.7 [facility] Comment on above: Performed By: #### L [id number] ####Shellfish Weigher: KEMAR ABEBE ([id number])[facility] [place] (SBHLAB)[address] COMPREHENSIVE METABOLIC PANE Gigi 10-21-2024 Albumin [Mass/Vol] 2.7 g/dL Low 3.5-5.0 [facility] Comment on above: Performed By: #### L AB17, [id number] ####Shellfish Weigher: KEMAR ABEBE ([id number])[facility] [place] (SBHLAB)[address] ALP [Catalytic activity/Vol] 135 U/L Normal [facility] Comment on above: Performed By: #### L AB17, [id number] ####Shellfish Weigher: KEMAR ABEBE ([id number])[facility] [place] (SB[facility])[address] ALT [Catalytic activity/Vol] 42 U/L Normal [facility] Comment on above: Performed By: #### L AB17, [id number] ####Shellfish Weigher: KEMAR ABEBE ([id number])[facility] [place] ([facility])[address] Anion gap [Moles/Vol] 12 mmol/L Normal 3-13 [facility] Comment on above: Performed By: #### L AB17, [id number] ####Shellfish Weigher: KEMAR ABEBE ([id number])[facility] (SBHLAB)[address] AST [Catalytic activity/Vol] 20 U/L Normal <34 [facility] Comment on above: Performed By: #### L AB17, [id number] ####Shellfish Weigher: KEMAR ABEBE ([id number])[facility] [place] ([facility])[address] Bilirubin [Mass/Vol] 0.3 mg/dL Normal <1.2 [facility] Comment on above: Performed By: #### L AB17, [id number] ####Shellfish Weigher: KEMAR ABEBE ([id number])[facility] [place] ([facility])[address] Calcium [Mass/Vol] 8.8 mg/dL Normal 8.4-10.2 [facility] Comment on above: Performed By: #### L AB17, [id number] ####Shellfish Weigher: KEMAR ABEBE ([phone])[facility] [place] (SB[facility])[address] [place] [address] [place] Chloride [Moles/Vol] 100 mmol/L Normal 98-107 [facility] Comment on above: Performed By: #### L AB17, [id number] ####Shellfish Weigher: KEMAR ABEBE ([id number])[facility] [place] ([facility])[address] CO2 [Moles/Vol] 23 mmol/L Normal 22-29 [facility] Comment on above: Performed By: #### L AB17, [id number] ####Shellfish Weigher: KEMAR ABEBE ([id number])[facility] (SBHLAB)[address] Creatinine [Mass/Vol] 1.35 mg/dL Normal [facility] Comment on above: Performed By: #### L AB17, [id number] ####Shellfish Weigher: KEMAR ABEBE ([id number])[facility] (SBHLAB)[address] GLOMERULAR FILTRATION RATE ML/MIN/1.73 SQ M.PREDICTED 45.9 mL/min/1.73m*2 Low >60.0 [facility] Comment on above: Result Comment: Calc ulation based on the Chronic Kidney Disease Epidemiology Collaboration (CKD-EPI) equation refit without adjustment for race Performed By: #### L AB17, [id number] ####Shellfish Weigher: KEMAR ABEBE ([id number])[facility] (SB[facility])[address] Glucose [Mass/Vol] 112 mg/dL High 74-100 [facility] Comment on above: Performed By: #### L AB17, [id number] ####Shellfish Weigher: KEMAR ABEBE ([id number])[facility] (SBHLAB)[address] [place] [address] [place] Potassium [Moles/Vol] 3.3 mmol/L Low 3.5-5.1 [facility] Comment on above: Result Comment: [facility] potassium values may be up to 0.5 mmol/L lower than serum values. Performed By: #### L AB17, [id number] ####Shellfish Weigher: KEMAR ABEBE ([id number])[facility] ([facility])[address] Protein [Mass/Vol] 6.6 g/dL Normal 6.4-8.3 [facility] Comment on above: Performed By: #### L AB17, [id number] ####Shellfish Weigher: KEMAR BANUELOSCER ([id number])[facility] (SBHLAB)[address] Sodium [Moles/Vol] 135 mmol/L Low 136-145 [facility] Comment on above: Performed By: #### L AB17, [id number] ####Shellfish Weigher: KEMAR MOMINHARRISON ([phone])[facility] (SBHLAB)[address] Urea nitrogen [Mass/Vol] 48 mg/dL High 9-23 [facility] Comment on above: Performed By: #### L AB17, [id number] ####Shellfish Weigher: KEMAR MOMINHARRISON ([id number])[facility] (SBHLAB)[address] Comprehensive metabolic 1998 panelon 10-21-2024 Albumin [Mass/Vol] 2.7 g/dL Low 3.5 - 5.0 g/dL [facility] ALP [Catalytic activity/Vol] 135 U/L [facility] ALT [Catalytic activity/Vol] 42 U/L [facility] Anion gap [Moles/Vol] 12 mmol/L 3 - 13 mmol/L [facility] AST [Catalytic activity/Vol] 20 U/L [facility] - 34 U/L [facility] Bilirubin [Mass/Vol] 0.3 mg/dL [facility] - 1.2 mg/dL [facility] Calcium [Mass/Vol] 8.8 mg/dL 8.4 - 10. 2 mg/dL [facility] Chloride [Moles/Vol] 100 mmol/L 98 - 10 7 mmol/L [facility] CO2 [Moles/Vol] 23 mmol/L 22 - 29 mmol/L [facility] Creatinine [Mass/Vol] 1.35 mg/dL [facility] GFR/1.73 sq M.predicted (S/P/Bld) [Vol rate/Area] 45.9 mL/min Low - PINF [facility] Comment on above: Calculation based on the Chronic Kidney Disease Epidemiology Collaboration (CKD-EPI) equation refit without adjustment for race Glucose [Mass/Vol] 112 mg/dL High 74 - 100 mg/dL [facility] Interpretation and review of laboratory results Abnormal [facility] Potassium [Moles/Vol] 3.3 mmol/L Low 3.5 - 5.1 mmol/L [facility] Comment on above: Plasma potassium helen ues may be up to 0.5 mmol/L lower than serum values. Protein [Mass/Vol] 6.6 g/dL 6.4 - 8.3 g/dL [facility] Sodium [Moles/Vol] 135 mmol/L Low 136 - 145 mmol/L [facility] Urea nitrogen [Mass/Vol] 48 mg/dL High 9 - 23 mg/dL [facility] - Chemistry and C hemistry - challengeon 10-21-2024 Glucose [Mass/Vol] 151 mg/dL High 70 - 100 mg/dL [facility] Glucose [Mass/Vol] 141 mg/dL High 70 - 100 mg/dL [facility] Glucose [Mass/Vol] 161 mg/dL High 70 - 100 mg/dL [facility] Glucose [Mass/Vol] 182 mg/dL High 70 - 100 mg/dL [facility] Glucose [Mass/Vol] 185 mg/dL High 70 - 100 mg/dL [facility] Magnesium [Mass/Vol] 2 mg/dL 1.6 - 2 .6 mg/dL [facility] MAGNESIUMon 10-21-2024 Magnesium [Mass/Vol] 2.0 mg/dL Normal 1.6-2.6 [facility] Comment on above: Result Comment: MARIE Doshi COMMENTS:Higher values can be expected in females during menses. Performed By: #### L [id number], [id number] ####Shellfish Weigher: KEMAR ABEBE ([phone])[facility]OSPITALWarren VIGIL (SBHLAB)[address] Magnesium [Mass/Vol]on 10-21 Interpretation and review of laboratory results Normal [facility] Higher values can be expected in females during menses. [facility] No Panel Informationon 10-21 Interpretation and review of laboratory results Abnormal [facility] Performed by: [facility], [address] [facility] [address] CLIA ID: [id number] [facility] Interpretation and review of laboratory results Abnormal [facility] Performed by: [facility], [address] [facility] [address] CLIA ID: [id number] [facility] Interpretation and review of laboratory results Abnormal [facility] Performed by: Nati [facility], [address] [facility] [address] CLIA ID: [id number] [facility] Interpretation and review of laboratory results Abnormal [facility] Performed by: [facility], [address] [facility] [address] CLIA ID: [id number] [facility] Interpretation and review of laboratory results Abnormal [facility] Performed by: [facility], [address] [facility] [address] CLIA ID: [id number] [facility] Progress Noteon 10-21-2024 Progress Note Normal [facility] Progress Note Normal [facility] [id number] 10-20-2024 [id number] Normal [facility] [id number] Sent updated [facility] TCC request. Await review and response regarding ability to accept. TCC notified. Normal [facility] Bacteria identified Cx Nom ( U)Ordered By: Sagrario Clark on 10-20-2024 Interpretation and review of laboratory results Normal [facility] C-REACTIVE PROTEINon 024 CRP [Mass/Vol] 261.6 mg/L High <5.0 [facility] Comment on above: Performed By: #### L [id number], LAB17, [id number] ####Shellfish Weigher: KEMAR ABEBE ([id number])[facility] (SBHLAB)[address] CBC W Auto Differential pane l (Bld)on 10-20-2024 Basophils (Bld) [#/Vol] 0 10*3/uL 0.0 - 0.2 10*3/uL [facility] Basophils/100 WBC (Bld) 0.1 % 0.0 - 2.0 % [facility] Eosinophils (Bld) [#/Vol] 0 10*3/uL 0.0 - 0.5 10*3/uL [facility] Eosinophils/100 WBC (Bld) 0.2 % 0.0 - 6.0 % [facility] Erythrocyte distribution width (RBC) [Ratio] 13.9 % 11.5 - 15.0 % [facility] Hematocrit (Bld) [Volume fraction] 33 % Male: 40.0-52.0 ; Female: 35.0-47.0 [facility] Hemoglobin (Bld) [Mass/Vol] 10.5 g/dL Low 11.7 - 18.0 g/dL [facility] Immature granulocytes (Bld) [#/Vol] 0.2 10*3/uL High NINF - 0.1 10*3/uL [facility] Immature granulocytes/100 WBC (Bld) 1.3 % 0.0 - 2.0 % [facility] Interpretation and review of laboratory results Abnormal [facility] Lymphocytes (Bld) [#/Vol] 1.1 10*3/uL 1.0 - 4.3 10*3/uL [facility] Lymphocytes/100 WBC (Bld) 8 % Low 15.0 - 45.0 % [facility] MCH (RBC) [Entitic mass] 27.3 pg 26.0 - 34.0 pg [facility] MCHC (RBC) [Mass/Vol] 31.8 % 30.5 - 36.0 % [facility] MCV (RBC) [Entitic vol] 85.7 fL 77.0 - 99.0 fL [facility] Monocytes (Bld) [#/Vol] 0.8 10*3/uL 0.0 - 0.9 10*3/uL [facility] Monocytes/100 WBC (Bld) 5.7 % 5.0 - 13.0 % [facility] Neutrophils (Bld) [#/Vol] 11.4 10*3/uL High 1.8 - 7.5 10*3/uL [facility] Neutrophils/100 WBC (Bld) 84.7 % High 38.0 - 82.0 % [facility] Nucleated RBC/100 WBC (Bld) [Ratio] 0 % [facility] Platelet mean volume (Bld) [Entitic vol] 9.9 fL 9.0 - 12.7 fL [facility] Platelets (Bld) [#/Vol] 353 10*3/uL 140 - 440 10*3/uL [facility] RBC (Bld) [#/Vol] 3.85 10*6/uL Male: 4.40-5.90; Female: 3.80-5.20 [facility] WBC (Bld) [#/Vol] 13.4 10*3/uL High 3.6 - 10.7 10*3/uL [facility] CBC WITH AUTO DIFFERENTIALon 10-20-2024 Basophils (Bld) [#/Vol] 0.0 10*3/uL Normal 0.0-0.2 [facility] Comment on above: Performed By: #### L [id number] ####Shellfish Weigher: KEMAR ABEBE ([id number])[facility] ([facility])[address] [place] [address] Basophils/100 WBC (Bld) 0.1 % Normal 0.0-2.0 [facility] Comment on above: Performed By: #### L [id number] ####Shellfish Weigher: KEMAR ABEBE ([id number])[facility] (SBHLAB)[address] Eosinophils (Bld) [#/Vol] 0.0 10*3/uL Normal 0.0-0.5 [facility] Comment on above: Performed By: #### L [id number] ####Shellfish Weigher: KEMAR ABEBE ([id number])[facility] [facility] (SBHLAB)[address] Eosinophils/100 WBC (Bld) 0.2 % Normal 0.0-6.0 [facility] Comment on above: Performed By: #### L [id number] ####Shellfish Weigher: KEMAR ABEBE ([id number])[facility] (SBHLAB)[address] Erythrocyte distribution width (RBC) [Ratio] 13.9 % Normal 11.5-15.0 [facility] Comment on above: Performed By: #### L [id number] ####Shellfish Weigher: KEMAR BANUELOSCER ([id number])[facility] (SBHLAB)[address] [place] [address] Hematocrit (Bld) [Volume fraction] 33.0 % Normal Male: 40.0-52.0 ; Female: 35.0-47.0 [facility] Comment on above: Performed By: #### L [id number] ####Shellfish Weigher: KEMAR ANDRAE ([id number])[facility] ([facility])[address] [place] [address] Hemoglobin (Bld) [Mass/Vol] 10.5 g/dL Low 11.7-18.0 [facility] Comment on above: Performed By: #### L [id number] ####Shellfish Weigher: KEMAR ABEBE ([id number])[facility] ([facility])[address] [place] [address] IMMATURE GRANS % 1.3 % Normal 0.0-2.0 [facility] Comment on above: Performed By: #### L [id number] ####Shellfish Weigher: KEMAR ABEBE ([id number])[facility] ([facility])[address] [place] [address] IMMATURE GRANS ABSOLUTE 0.2 10*3/uL High <0.1 [facility] Comment on above: Performed By: #### L [id number] ####Shellfish Weigher: KEMAR LUDWIGSAAD ([id number])[facility] ([facility])[address] [place] [address] Lymphocytes (Bld) [#/Vol] 1.1 10*3/uL Normal 1.0-4.3 [facility] Comment on above: Performed By: #### L [id number] ####Shellfish Weigher: KEMAR ANDRAE ([id number])[facility] ([facility])[address] [place] [address] Lymphocytes/100 WBC (Bld) 8.0 % Low 15.0-45.0 [facility] Comment on above: Performed By: #### L [id number] ####Shellfish Weigher: KEMAR MOMINHiginioSAAD ([id number])[facility] BAR[facility]N (SBHLAB)[address] MCH (RBC) [Entitic mass] 27.3 pg Normal 26.0-34.0 [facility] Comment on above: Performed By: #### L [id number] ####Shellfish Weigher: KEMAR ANDRAE ([id number])[facility]ITALWarren WADECHRISTUS [facility] (SBHLAB)[address] MCHC 31.8 % Normal 30.5-36.0 [facility] Comment on above: Performed By: #### L [id number] ####Shellfish Weigher: KEMAR ANDRAE ([id number])[facility]ITALWarren K[place]N (SBHLAB)[address] [place] [address] MCV (RBC) [Entitic vol] 85.7 fL Normal 77.0-99.0 [facility] Comment on above: Performed By: #### L [id number] ####Shellfish Weigher: KEMAR MOMINHiginioSAAD ([id number])[facility]ITAL[facility]ren [facility] (SBHLAB)[address] [place] [address] Monocytes (Bld) [#/Vol] 0.8 10*3/uL Normal 0.0-0.9 [facility] Comment on above: Performed By: #### L [id number] ####Shellfish Weigher: KEMAR ABEBE ([id number])[facility]ITAL[facility] [place] (SBHLAB)[address] Monocytes/100 WBC (Bld) 5.7 % Normal 5.0-13.0 [facility] Comment on above: Performed By: #### L [id number] ####Shellfish Weigher: KEMAR LUDWIGSAAD ([id number])[facility] (SBHLAB)[address] NEUTROPHILS ABSOLUTE 11.4 10*3/uL High 1.8-7.[address] [facility] Comment on above: Performed By: #### L [id number] ####Shellfish Weigher: KEMAR ABEBE ([id number])LAKIAA BARBMARYN (SBHLAB)[address] Neutrophils/100 WBC (Bld) 84.7 % High 38.0-82.0 [facility] Comment on above: Performed By: #### L [id number] ####Shellfish Weigher: KEMAR LUDWIGSAAD ([id number])[facility] [place] (SBHLAB)[address] NRBC 0.0 /100 WBCs Normal 0.0-2.0 [facility] Comment on above: Performed By: #### L [id number] ####Shellfish Weigher: KEMAR LUDWIGSAAD ([id number])[facility] [place] (SBHLAB)[address] Platelet mean volume (Bld) [Entitic vol] 9.9 fL Normal 9.0-12.7 [facility] Comment on above: Performed By: #### L [id number] ####Shellfish Weigher: KEMAR LUDWIGSAAD ([id number])[facility]ITAL[facility] [place] (SBHLAB)[address] Platelets (Bld) [#/Vol] 353 10*3/uL Normal 140-440 [facility] Comment on above: Performed By: #### L [id number] ####Shellfish Weigher: KEMAR LUDWIGSAAD ([id number])[facility]ITAL[facility] [place] (SBHLAB)[address] RBC (Bld) [#/Vol] 3.85 10*6/uL Normal Male: 4.40-5.90; Female: 3.80-5.20 [facility] Comment on above: Performed By: #### L [id number] ####Shellfish Weigher: KEMAR ABEBE ([id number])[facility] [place] (SBHLAB)[address] WBC (Bld) [#/Vol] 13.4 10*3/uL High 3.6-10.7 [facility] Comment on above: Performed By: #### L [id number] ####Shellfish Weigher: KEMAR ABEBE ([id number])[facility] [place] (SBHLAB)[address] COMPREHENSIVE METABOLIC PANE Gigi 10-20-2024 Albumin [Mass/Vol] 2.8 g/dL Low 3.5-5.0 [facility] Comment on above: Performed By: #### L [id number], LAB17, [id number] ####Shellfish Weigher: KEMAR ABEBE ([id number])[facility] [place] (SBHLAB)[address] ALP [Catalytic activity/Vol] 155 U/L Normal [facility] Comment on above: Performed By: #### L [id number], LAB17, CAN805 ####Shellfish Weigher: KEMAR ABEBE ([id number])[facility] [place] (SBHLAB)[address] ALT [Catalytic activity/Vol] 53 U/L Normal [facility] Comment on above: Performed By: #### L [id number], LAB17, QUN694 ####Shellfish Weigher: KEMAR ABEBE ([id number])[facility] [place] (SBHLAB)[address] Anion gap [Moles/Vol] 14 mmol/L High 3-13 [facility] Comment on above: Performed By: #### L [id number], LAB17, GLP045 ####Shellfish Weigher: KEMAR ABEBE ([id number])[facility] [place] (SBHLAB)[address] AST [Catalytic activity/Vol] 20 U/L Normal <34 [facility] Comment on above: Performed By: #### L [id number], LAB17, SNN975 ####Shellfish Weigher: KEMAR ABEBE ([id number])[facility] [place] (SBHLAB)[address] Bilirubin [Mass/Vol] 0.5 mg/dL Normal <1.2 [facility] Comment on above: Performed By: #### L [id number], LAB17, FFZ638 ####Shellfish Weigher: KEMAR ABEBE ([id number])[facility] (HLAB)[address] Calcium [Mass/Vol] 9.0 mg/dL Normal 8.4-10.2 [facility] Comment on above: Performed By: #### Elijah [address], LAB17, EOR979 ####Shellfish Weigher: KEMAR ABEBE ([id number])[facility] (SBHLAB)[address] Chloride [Moles/Vol] 98 mmol/L Normal 98-107 [facility] Comment on above: Performed By: #### Elijah [address], LAB17, ETU095 ####Shellfish Weigher: KEMAR ABEBE ([id number])[facility] (SBHLAB)[address] CO2 [Moles/Vol] 21 mmol/L Low 22-29 [facility] Comment on above: Performed By: #### Elijah RODRIGUEZ, LAB17, WBB024 ####Shellfish Weigher: KEMAR ABEBE ([id number])[facility] ([facility])[address] Creatinine [Mass/Vol] 1.50 mg/dL Normal [facility] Comment on above: Performed By: #### Elijah [address], LAB17, CHH429 ####Shellfish Weigher: KEMAR ABEBE ([id number])[facility] (HLAB)[address] GLOMERULAR FILTRATION RATE ML/MIN/1.73 SQ M.PREDICTED 40.5 mL/min/1.73m*2 Low >60.0 [facility] Comment on above: Result Comment: Calc ulation based on the Chronic Kidney Disease Epidemiology Collaboration (CKD-EPI) equation refit without adjustment for race Performed By: #### L [id number], LAB17, RGT344 ####Shellfish Weigher: KEMAR ABEBE ([id number])[facility] (SBHLAB)[address] [place] [address] [place] Glucose [Mass/Vol] 461 mg/dL Critically high 74-100 [facility] Comment on above: Performed By: #### L [id number], LAB17, RNG455 ####Shellfish Weigher: KEMAR ABEBE ([id number])[facility] (SBHLAB)[address] Potassium [Moles/Vol] 3.6 mmol/L Normal 3.5-5.1 [facility] Comment on above: Result Comment: [facility] potassium values may be up to 0.5 mmol/L lower than serum values. Performed By: #### L [id number], LAB17, EML172 ####Shellfish Weigher: KEMAR ABEBE ([id number])[facility] (SBHLAB)[address] Protein [Mass/Vol] 6.8 g/dL Normal 6.4-8.3 [facility] Comment on above: Performed By: #### L [id number], LAB17, LAW659 ####Shellfish Weigher: KEMAR ABEBE ([id number])[facility] (SBHLAB)[address] [place] [address] [place] Sodium [Moles/Vol] 133 mmol/L Low 136-145 [facility] Comment on above: Performed By: #### L [id number], LAB17, QTT231 ####Shellfish Weigher: KEMAR ABEBE ([id number])[facility] (SBHLAB)[address] [place] [address] [place] Urea nitrogen [Mass/Vol] 48 mg/dL High 9-23 [facility] Comment on above: Performed By: #### L [id number], LAB17, WNJ553 ####Shellfish Weigher: KEMAR ABEBE ([id number])[facility] (SBHLAB)[address] [place] [address] [place] CRP [Mass/Vol]on 10-20-2024 Interpretation and review of laboratory results Abnormal [facility] Comprehensive metabolic 1998 panelon 10-20-2024 Albumin [Mass/Vol] 2.8 g/dL Low 3.5 - 5.0 g/dL [facility] ALP [Catalytic activity/Vol] 155 U/L [facility] ALT [Catalytic activity/Vol] 53 U/L [facility] Anion gap [Moles/Vol] 14 mmol/L High 3 - 13 mmol/L [facility] AST [Catalytic activity/Vol] 20 U/L NINF - 34 U/L [facility] Bilirubin [Mass/Vol] 0.5 mg/dL NINF - 1.2 mg/dL [facility] Calcium [Mass/Vol] 9 mg/dL 8.4 - 10. 2 mg/dL [facility] Chloride [Moles/Vol] 98 mmol/L 98 - 10 7 mmol/L [facility] CO2 [Moles/Vol] 21 mmol/L Low 22 - 29 mmol/L [facility] Creatinine [Mass/Vol] 1.5 mg/dL [facility] GFR/1.73 sq M.predicted (S/P/Bld) [Vol rate/Area] 40.5 mL/min Low - PINF [facility] Comment on above: Calculation based on the Chronic Kidney Disease Epidemiology Collaboration (CKD-EPI) equation refit without adjustment for race Glucose [Mass/Vol] 461 mg/dL Critically high 74 - 1 00 mg/dL [facility] Interpretation and review of laboratory results Abnormal [facility] Potassium [Moles/Vol] 3.6 mmol/L 3.5 - 5.1 mmol/L [facility] Comment on above: Plasma potassium helen ues may be up to 0.5 mmol/L lower than serum values. Protein [Mass/Vol] 6.8 g/dL 6.4 - 8.3 g/dL [facility] Sodium [Moles/Vol] 133 mmol/L Low 136 - 145 mmol/L [facility] Urea nitrogen [Mass/Vol] 48 mg/dL High 9 - 23 mg/dL [facility] Consulton 10-20-2024 Consult Normal [facility] IRON AND TIBCon 10-20-2024 IRON BINDING CAPACITY 187 ug/dL Low 250-450 [facility] Comment on above: Performed By: #### L [id number] ####Shellfish Weigher: KEMAR ABEBE ([id number])[facility] (SBHLAB)[address] IRON SATURATION 25.7 % Normal 20.0-50.0 [facility] Comment on above: Performed By: #### L [id number] ####Shellfish Weigher: KEMAR ABEBE ([id number])[facility] (SBHLAB)[address] IRON, TOTAL 48 ug/dL Normal [facility] Comment on above: Performed By: #### L [id number] ####Shellfish Weigher: KEMAR ABEBE ([id number])[facility] (SBHLAB)[address] Iron and Iron binding capaci ty panelon 10-20-2024 Interpretation and review of laboratory results Abnormal [facility] Iron [Mass/Vol] 48 ug/dL [facility] Iron binding capacity [Mass/Vol] 187 ug/dL Low 250 - 450 ug/dL [facility] Iron saturation [Mass fraction] 25.7 % 20.0 - 50.0 % [facility] Laboratory - Chemistry and C hemistry - challengeon 10-20-2024 Glucose [Mass/Vol] 260 mg/dL High 70 - 100 mg/dL [facility] Glucose [Mass/Vol] 373 mg/dL High 70 - 100 mg/dL [facility] Glucose [Mass/Vol] 445 mg/dL High 70 - 100 mg/dL [facility] Glucose [Mass/Vol] 445 mg/dL High 70 - 100 mg/dL [facility] Procalcitonin [Mass/Vol] 2 ng/mL High NINF - 0.07 ng/mL [facility] CRP [Mass/Vol] 261.6 mg/L High NINF - 5.0 mg/L [facility] Laboratory - Microbiology an d Antimicrobial susceptibilityOrdered By: Sagrario Clark on 10-20-2024 Bacteria identified Cx Nom (U) Insignificant growth based on current clinical guidelines [facility] No Panel Informationon 10-20 Interpretation and review of laboratory results Abnormal [facility]: [facility], [address] [place] [address] CLIA ID: [id number] [facility] Interpretation and review of laboratory results Abnormal [facility] Performed by: [facility], [address] [facility] [address] CLIA ID: [id number] [facility] Interpretation and review of laboratory results Abnormal [facility] Performed by: [facility], [address] [facility] [address] CLIA ID: [id number] [facility] Interpretation and review of laboratory results Abnormal [facility] Performed by: [facility], [address] [facility] [address] CLIA ID: [id number] [facility] Nursing Noteon 10-20-2024 Nursing Note Report called to [address] [place] [address] for transfer. Normal [facility] Nursing Note Notified Lisa guerrero APRN and Dr. Thomas regarding patients BS. New orders placed. Normal [facility] PROCALCITONIN TESTon 024 PROCALCITONIN 2.00 ng/mL High <0.07 [facility] Comment on above: Result Comment: MARIE Doshi COMMENTS:PCT <0.50 = Low risk of severe sepsis and/or septic shock.PCT >2.00 = High risk of severe sepsis and/or septic shock. Performed By: #### L [id number], LAB17, [id number] ####Shellfish Weigher: KEMAR ABEBE ([id number])[facility] (SBHLAB)[address] [place] [address] Procalcitonin [Mass/Vol]on 12-21-2023 Interpretation and review of laboratory results Abnormal [facility] PCT <0.50 = Low risk of severe sepsis and/or septic shock. PCT >2.00 = High risk of severe sepsis and/or septic shock. [facility] Progress Noteon 10-20-2024 Progress Note Normal [facility] Progress Note Normal [facility] Progress Note Normal [facility] Progress Note Normal [facility] Progress Note Nutrition rescreen completed. Patient is NPO/Clear liquid >3 days. Refer to Dietitian. Normal [facility] 30on 10-19-2024 30 Normal [facility] [id number] 10-19-2024 [id number] Normal [facility] 36on 10-19-2024 36 Needs to be seen for follow up with any provider, will need ECF to arrange transportation so that patient can be seen in office ans no longer available to manage over the phone Normal [facility] CBC W Auto Differential pane l (Bld)on 10-19-2024 Erythrocyte distribution width (RBC) [Ratio] 14.5 % 11.5 - 15.0 % [facility] Hematocrit (Bld) [Volume fraction] 34.4 % Male: 40.0-52.0 ; Female: 35.0-47.0 [facility] Hemoglobin (Bld) [Mass/Vol] 10.9 g/dL Low 11.7 - 18.0 g/dL [facility] MCH (RBC) [Entitic mass] 27.7 pg 26.0 - 34.0 pg [facility] MCHC (RBC) [Mass/Vol] 31.7 % 30.5 - 36.0 % [facility] MCV (RBC) [Entitic vol] 87.3 fL 77.0 - 99.0 fL [facility] Platelet mean volume (Bld) [Entitic vol] 9.6 fL 9.0 - 12.7 fL [facility] Platelets (Bld) [#/Vol] 339 10*3/uL 140 - 440 10*3/uL [facility] RBC (Bld) [#/Vol] 3.94 10*6/uL Male: 4.40-5.90; Female: 3.80-5.20 [facility] WBC (Bld) [#/Vol] 21.8 10*3/uL High 3.6 - 10.7 10*3/uL [facility] CBC WITH AUTO DIFFERENTIALon 10-19-2024 Erythrocyte distribution width (RBC) [Ratio] 14.5 % Normal 11.5-15.0 [facility] Comment on above: Performed By: #### L [id number], [id number] ####Shellfish Weigher: KEMAR ABEBE ([id number])[facility] (SBHLAB)[address] Hematocrit (Bld) [Volume fraction] 34.4 % Normal Male: 40.0-52.0 ; Female: 35.0-47.0 [facility] Comment on above: Performed By: #### L [id number], [id number] ####Shellfish Weigher: KEMAR ABEBE ([id number])[facility] [place] (SBHLAB)[address] Hemoglobin (Bld) [Mass/Vol] 10.9 g/dL Low 11.7-18.0 [facility] Comment on above: Performed By: #### L [id number], [id number] ####Shellfish Weigher: KEMAR ABEBE ([id number])[facility] (SBHLAB)[address] [place] [address] MCH (RBC) [Entitic mass] 27.7 pg Normal 26.0-34.0 [facility] Comment on above: Performed By: #### L [id number], [id number] ####Shellfish Weigher: KEMAR ABEBE ([id number])[facility] (SBHLAB)[address] [place] [address] MCHC 31.7 % Normal 30.5-36.0 [facility] Comment on above: Performed By: #### L [id number], [id number] ####Shellfish Weigher: KEMAR ABEBE ([id number])[facility] (SBHLAB)[address] [place] [address] MCV (RBC) [Entitic vol] 87.3 fL Normal 77.0-99.0 [facility] Comment on above: Performed By: #### L [id number], [id number] ####Shellfish Weigher: KEMAR ABEBE ([id number])[facility] (SBHLAB)[address] Platelet mean volume (Bld) [Entitic vol] 9.6 fL Normal 9.0-12.7 [facility] Comment on above: Performed By: #### L [id number], [id number] ####Shellfish Weigher: KEMAR ABEBE ([id number])[facility]ITALWar[facility] (SBHLAB)[address] Platelets (Bld) [#/Vol] 339 10*3/uL Normal 140-440 [facility] Comment on above: Performed By: #### L [id number], [id number] ####Shellfish Weigher: KEMAR ABEBE ([id number])[facility] (SBHLAB)[address] RBC (Bld) [#/Vol] 3.94 10*6/uL Normal Male: 4.40-5.90; Female: 3.80-5.20 [facility] Comment on above: Performed By: #### L [id number], [id number] ####Shellfish Weigher: KEMAR ABEBE ([id number])[facility] (SBHLAB)[address] WBC (Bld) [#/Vol] 21.8 10*3/uL High 3.6-10.7 [facility] Comment on above: Performed By: #### L [id number], [id number] ####Shellfish Weigher: KEMAR ABEBE ([id number])[facility]ITALWar[facility]IT[facility] (SBHLAB)[address] [place] [address] COMPREHENSIVE METABOLIC PANE Gigi 10-19-2024 Albumin [Mass/Vol] 2.8 g/dL Low 3.5-5.0 [facility] Comment on above: Performed By: #### L [id number] ####Shellfish Weigher: KEMAR ABEBE ([id number])[facility] ([facility])[address] ALP [Catalytic activity/Vol] 151 U/L Normal [facility] Comment on above: Performed By: #### L [id number] ####Shellfish Weigher: KEMAR ABEBE ([id number])[facility] ([facility])[address] ALT [Catalytic activity/Vol] 83 U/L Normal [facility] Comment on above: Performed By: #### L [id number] ####Shellfish Weigher: KEMAR ABEBE ([id number])[facility] (SBHLAB)[address] Anion gap [Moles/Vol] 11 mmol/L Normal 3-13 [facility] Comment on above: Performed By: #### L [id number] ####Shellfish Weigher: KEMAR ABEBE ([id number])[facility] [place] [facility] ([facility])[address] AST [Catalytic activity/Vol] 50 U/L High <34 [facility] Comment on above: Performed By: #### L [id number] ####Shellfish Weigher: KEMAR ABEBE ([phone])[facility] Bilirubin [Mass/Vol] 0.8 mg/dL Normal <1.2 [facility] Comment on above: Performed By: #### L [id number] ####Shellfish Weigher: KEMAR ABEBE ([id number])[facility] Calcium [Mass/Vol] 8.9 mg/dL Normal 8.4-10.2 [facility] Comment on above: Performed By: #### L [id number] ####Shellfish Weigher: KEMAR ABEBE ([id number])[facility] [place] [address] [place] Chloride [Moles/Vol] 102 mmol/L Normal 98-107 [facility] Comment on above: Performed By: #### L [id number] ####Shellfish Weigher: KEMAR ABEBE ([id number])[facility] (HLAB)[address] [place] [address] [place] CO2 [Moles/Vol] 22 mmol/L Normal 22-29 [facility] Comment on above: Performed By: #### L [id number] ####Shellfish Weigher: KEMAR ABEBE ([id number])[facility] (SBHLAB)[address] Creatinine [Mass/Vol] 1.15 mg/dL Normal [facility] Comment on above: Performed By: #### L [id number] ####Shellfish Weigher: KEMAR ABEBE ([id number])[facility] ([facility])[address] [place] [address] [place] GLOMERULAR FILTRATION RATE ML/MIN/1.73 SQ M.PREDICTED 55.7 mL/min/1.73m*2 Low >60.0 [facility] Comment on above: Result Comment: Calc ulation based on the Chronic Kidney Disease Epidemiology Collaboration (CKD-EPI) equation refit without adjustment for race Performed By: #### L [id number] ####Shellfish Weigher: KEMAR ABEBE ([phone])[facility] ([facility])[address] Glucose [Mass/Vol] 223 mg/dL High 74-100 [facility] Comment on above: Performed By: #### L [id number] ####Shellfish Weigher: KEMAR ABEBE ([phone])[facility] (SB[facility])[address] Potassium [Moles/Vol] 3.6 mmol/L Normal 3.5-5.1 [facility] Comment on above: Result Comment: [facility] potassium values may be up to 0.5 mmol/L lower than serum values. Performed By: #### L [id number] ####Shellfish Weigher: KEMAR ABEBE ([id number])[facility] [place] ([facility])[address] [place] [address] [place] Protein [Mass/Vol] 6.5 g/dL Normal 6.4-8.3 [facility] Comment on above: Performed By: #### L [id number] ####Shellfish Weigher: KEMAR ABEBE ([id number])[facility] ([facility])[address] [place] [address] [place] Sodium [Moles/Vol] 135 mmol/L Low 136-145 [facility] Comment on above: Performed By: #### L [id number] ####Shellfish Weigher: KEMAR ABEBE ([id number])[facility] (SBHLAB)[address] Urea nitrogen [Mass/Vol] 32 mg/dL High 9-23 [facility] Comment on above: Performed By: #### L [id number] ####Shellfish Weigher: KEMAR ABEBE ([phone])[facility] (SBHLAB)[address] CULTURE ANAEROBICon 10-19-20 24 CULTURE ANAEROBIC Normal [facility] Comment on above: Performed By: #### L [id number] ####Shellfish Weigher: MARCELA LUCERO ([id number])[facility] [place] [address] CULTURE ANAEROBIC Normal [facility] Comment on above: Order Comment: Colle cted during drain placement Performed By: #### L [id number] ####Shellfish Weigher: MARCELA LUCERO ([id number])[facility] [place] [address] CULTURE, AEROBIC BACTERIA WI TH GRAM STAINon 10-19-2024 CULTURE, AEROBIC BACTERIA WITH GRAM STAIN Normal [facility] Comment on above: Performed By: #### L [id number] ####Shellfish Weigher: MARCELA LUCERO ([phone])[facility] [place] [address] CULTURE, AEROBIC BACTERIA WITH GRAM STAIN Normal [facility] Comment on above: Order Comment: Colle cted during drain placement Performed By: #### L [id number] ####Shellfish Weigher: MARCELA LUCERO ([phone])[facility] ([facility])[address] [place] [address] Comprehensive metabolic 1998 panelon 10-19-2024 Albumin [Mass/Vol] 2.8 g/dL Low 3.5 - 5.0 g/dL [facility] ALP [Catalytic activity/Vol] 151 U/L [facility] ALT [Catalytic activity/Vol] 83 U/L [facility] Anion gap [Moles/Vol] 11 mmol/L 3 - 13 mmol/L [facility] AST [Catalytic activity/Vol] 50 U/L High NINF - 34 U/L [facility] Bilirubin [Mass/Vol] 0.8 mg/dL NINF - 1.2 mg/dL [facility] Calcium [Mass/Vol] 8.9 mg/dL 8.4 - 10. 2 mg/dL [facility] Chloride [Moles/Vol] 102 mmol/L 98 - 10 7 mmol/L [facility] CO2 [Moles/Vol] 22 mmol/L 22 - 29 mmol/L [facility] Creatinine [Mass/Vol] 1.15 mg/dL [facility] GFR/1.73 sq M.predicted (S/P/Bld) [Vol rate/Area] 55.7 mL/min Low - PINF [facility] Comment on above: Calculation based on the Chronic Kidney Disease Epidemiology Collaboration (CKD-EPI) equation refit without adjustment for race Glucose [Mass/Vol] 223 mg/dL High 74 - 100 mg/dL [facility] Interpretation and review of laboratory results Abnormal [facility] Potassium [Moles/Vol] 3.6 mmol/L 3.5 - 5.1 mmol/L [facility] Comment on above: Plasma potassium helen ues may be up to 0.5 mmol/L lower than serum values. Protein [Mass/Vol] 6.5 g/dL 6.4 - 8.3 g/dL [facility] Sodium [Moles/Vol] 135 mmol/L Low 136 - 145 mmol/L [facility] Urea nitrogen [Mass/Vol] 32 mg/dL High 9 - 23 mg/dL [facility] Consulton 10-19-2024 Consult Normal [facility] Consult Normal [facility] Consult Normal [facility] Consult Normal [facility] HEMOGLOBIN A1Con 10-19-2024 Glucose [Mass/Vol] 151 mg/dL Normal [facility] Comment on above: Result Comment: MARIE R COMMENTS:HbA1c values of 5.7-6.4 percent indicate an increased risk for developing diabetes mellitus. HbA1c values greater than or equal to 6.5 percent are diagnostic of diabetes mellitus. For diagnosis of diabetes in individuals without unequivocal hyperglycemia, results should be confirmed by repeat testing. Performed By: #### L AB90 ####Shellfish Weigher: KEMAR ABEBE ([phone])[facility] ([facility])[address] HEMOGLOBIN A1C 6.9 %HbA1C High <5.7 [facility] Comment on above: Result Comment: Norm al less than 5.7%Prediabetes 5.7% to 6.4%Diabetes 6.5% or higher--HgbA1C levels may not be accurate in patients who have renal disease, received recent blood transfusions, are anemic, or who have dyshemoglobinemia. Performed By: #### L AB90 ####Shellfish Weigher: EKMAR LUDWIGSAAD ([phone])[facility] (SBAB)[address] Laboratory - Chemistry and C hemistry - challengeon 10-19-2024 Glucose [Mass/Vol] 396 mg/dL High 70 - 100 mg/dL [facility] Glucose [Mass/Vol] 374 mg/dL High 70 - 100 mg/dL [facility] Average glucose Estimated from glycated hemoglobin (Bld) [Mass/Vol] 151 mg/dL [facility] Glucose [Mass/Vol] 336 mg/dL High 70 - 100 mg/dL [facility] Glucose [Mass/Vol] 299 mg/dL High 70 - 100 mg/dL [facility] Glucose [Mass/Vol] 207 mg/dL High 70 - 100 mg/dL [facility] Laboratory - Coagulationon 1 12-20-2023 PT Coag (Bld) [Time] 14 s High 9.0 - 1 2.0 s [facility] Laboratory - Hematology and Cell countson 10-19-2024 HbA1c (Bld) [Mass fraction] 6.9 % High NINF [facility] Comment on above: Normal less than 5.7 % Prediabetes 5.7% to 6.4% Diabetes 6.5% or higher --HgbA1C levels may not be accurate in patients who have renal disease, received recent blood transfusions, are anemic, or who have dyshemoglobinemia. Lymphocytes (Bld) [#/Vol] 2.2 10*3/uL 1.0 - 4.3 10*3/uL [facility] Lymphocytes/100 WBC (Bld) 10 % Low 15 - 45 % [facility] Monocytes (Bld) [#/Vol] 0.2 10*3/uL 0.0 - 0.9 10*3/uL [facility] Monocytes/100 WBC (Bld) 1 % Low 5 - 13 % [facility] Neutrophils (Bld) [#/Vol] 19.4 10*3/uL High 1.8 - 7.5 10*3/uL [facility] RBC morphology finding Nom (Bld) Normal [facility] Segmented neutrophils/100 WBC (Bld) 89 % High 38 - 82 % [facility] Lower GI hemoglobin spec 1 I A Ql (Stl)Ordered By: Debbie Kearns on 10-19-2024 Fecal occult blood Positive Abnormal Negative [facility] Interpretation and review of laboratory results Abnormal [facility] Methodology: Immunoassay [facility] MANUAL DIFFERENTIAL (CELLAVI DORIAN)on 10-19-2024 BAND NEUTROPHILS TOTAL PER COUNTED LEUKOCYTES BY MANUAL COUNT [facility] Comment on above: Performed By: #### L [id number], [id number] ####Shellfish Weigher: KEMAR ABEBE ([id number])[facility] [place] ([facility])[address] [place] [address] [place] BASOPHILS TOTAL PER COUNTED LEUKOCYTES BY MANUAL COUNT Normal [facility] Comment on above: Performed By: #### L [id number], [id number] ####Shellfish Weigher: KEMAR ABEBE ([id number])[facility] [place] ([facility])[address] [place] [address] [place] BLASTS TOTAL PER COUNTED LEUKOCYTES BY MANUAL COUNT Normal [facility] Comment on above: Performed By: #### L [id number], [id number] ####Shellfish Weigher: KEMAR ABEBE ([id number])[facility] [place] (SB[facility])[address] [place] [address] [place] EOSINOPHILS TOTAL PER COUNTED LEUKOCYTES BY MANUAL COUNT Normal [facility] Comment on above: Performed By: #### L [id number], [id number] ####Shellfish Weigher: KEMAR ABEBE ([id number])[facility] [place] ([facility])[address] [place] [address] [place] LYMPHOCYTES (10*3/UL) IN BLOOD-CELLAVISION 2.2 10*3/uL Normal 1.0-4.3 [facility] Comment on above: Performed By: #### L [id number], [id number] ####Shellfish Weigher: KEMAR ABEBE ([id number])[facility] [place] (SB[facility]AB)[address] LYMPHOCYTES TOTAL PER COUNTED LEUKOCYTES BY MANUAL COUNT 10 Normal [facility] Comment on above: Performed By: #### L [id number], [id number] ####Shellfish Weigher: KEMAR ABEBE ([id number])[facility] [place] ([facility])[address] [place] [address] [place] LYMPHOCYTES/100 LEUKOCYTES IN BLOOD-CELLAVISION 10 % Low 15-45 [facility] Comment on above: Performed By: #### L [id number], [id number] ####Shellfish Weigher: KEMAR ABEBE ([id number])[facility] [place] (SBHLAB)[address] METAMYELOCYTES TOTAL PER COUNTED LEUKOCYTES BY MANUAL COUNT [facility] Comment on above: Performed By: #### L [id number], [id number] ####Shellfish Weigher: KEMAR ABEBE ([id number])[facility] [place] ([facility])[address] [place] [address] [place] MONOCYTES (10*3/UL) IN BLOOD-CELLAVISION 0.2 10*3/uL Normal 0.0-0.9 [facility] Comment on above: Performed By: #### L [id number], [id number] ####Shellfish Weigher: KEMAR ABEBE ([id number])[facility] [place] ([facility])[address] [place] [address] [place] MONOCYTES TOTAL PER COUNTED LEUKOCYTES BY MANUAL COUNT [address] [facility] Comment on above: Performed By: #### L [id number], [id number] ####Shellfish Weigher: KEMAR ABEBE ([id number])[facility] [place] ([facility])[address] [place] [address] [place] MONOCYTES/100 LEUKOCYTES IN BLOOD-SOY 1 % Low 5-13 [facility] Comment on above: Performed By: #### L [id number], [id number] ####Shellfish Weigher: KEMAR ABEBE ([id number])[facility] [place] (SBHLAB)[address] [place] [address] [place] MYELOCYTES COUNTED BY MANUAL COUNT [facility] Comment on above: Performed By: #### L [id number], [id number] ####Shellfish Weigher: KEMAR ABEBE ([id number])[facility] [place] ([facility])[address] [place] [address] [place] NEUTROPHILS TOTAL PER COUNTED LEUKOCYTES BY MANUAL COUNT 89 Normal [facility] Comment on above: Performed By: #### L [id number], [id number] ####Shellfish Weigher: KEMAR ABEBE ([id number])[facility] [place] ([facility])[address] [place] [address] [place] PROMYELOCYTES TOTAL PER COUNTED LEUKOCYTES BY MANUAL COUNT [facility] Comment on above: Performed By: #### L [id number], [id number] ####Shellfish Weigher: KEMAR ABEBE ([id number])[facility] [place] ([facility])[address] [place] [address] [place] RBC MORPHOLOGY IN BLOOD Normal Normal [facility] Comment on above: Performed By: #### L [id number], [id number] ####Shellfish Weigher: KEMAR ABEBE ([id number])[facility] [place] ([facility])[address] [place] [address] [place] SEGMENTED NEUTROPHILS (10*3/UL) IN BLOOD-CELLAVISION 19.4 10*3/uL High 1.8-7.5 [facility] Comment on above: Performed By: #### L [id number], [id number] ####Shellfish Weigher: KEMAR ABEBE ([id number])[facility] [place] ([facility])[address] [place] [address] [place] SEGMENTED NEUTROPHILS/100 LEUKOCYTES-CE 89 % High 38-82 [facility] Comment on above: Performed By: #### L [id number], [id number] ####Shellfish Weigher: KEMAR ABEBE ([id number])[facility] (SBHLAB)[address] [place] [address] UNCLASSIFIED CELLS TOTAL PER COUNTED LEUKOCYTES BY MANUAL COUNT Normal [facility] Comment on above: Performed By: #### L [id number], [id number] ####Shellfish Weigher: KEMAR ABEBE ([id number])[facility] ([facility])[address] [place] [address] VARIANT LYMPHOCYTES TOTAL PER COUNTED LEUKOCYTES BY MANUAL COUNT Normal [facility] Comment on above: Performed By: #### L [id number], [id number] ####Shellfish Weigher: KEMAR LUDWIGSAAD ([id number])[facility] (SB[facility]AB)[address] [place] [address] No Panel Informationon 10-19 Interpretation and review of laboratory results Abnormal [facility] Performed by: [facility], [address] [place] [address] CLIA ID: [id number] [facility] Interpretation and review of laboratory results Abnormal [facility] Performed by: [facility], [address] [place] [address] CLIA ID: [id number] [facility] Interpretation and review of laboratory results Abnormal [facility] HbA1c values of 5.7- 6.4 percent indicate an increased risk for developing diabetes mellitus. HbA1c values greater than or equal to 6.5 percent are diagnostic of diabetes mellitus. For diagnosis of diabetes in individuals without unequivocal hyperglycemia, results should be confirmed by repeat testing. [facility] Interpretation and review of laboratory results Abnormal [facility] Performed by: [facility], [address] [place] [address] CLIA ID: [id number] [facility] Interpretation and review of laboratory results Abnormal [facility] Performed by: [facility], [address] [place] [address] CLIA ID: [id number] [facility] Atypical Lymphocytes Manual [facility] Bands Manual [facility] Basophils Manual [facility] Blasts Manual [facility] Eosinophils Manual [facility] Interpretation and review of laboratory results Abnormal [facility] Lymphocytes Manual 10 [facility] Metamyelocytes Manual [facility] Monocytes Manual 1 [facility] Myelocytes Manual [facility] Neutrophils Manual 89 [facility] Promyelocytes Manual [facility] Unclassified Cells, Manual [facility] Interpretation and review of laboratory results Abnormal [facility] Performed by: [facility], [address] [address] CLIA ID: [id number] [facility] OCCULT BLOOD, STOOLon 2023 OCCULT BLOOD, STOOL FECAL OCCULT, STOOL (A) Reference Positive Negative ORDER COMMENTS: (A) Methodology: Immunoassay Normal [facility] Comment on above: Performed By: #### L [id number] ####Shellfish Weigher: KEMAR ABEBE ([id number])[facility] [place] [address] PROTHROMBIN TIMEon INR Coag (PPP) [Relative time] 1.3 {INR} High 0.9-1.1 [facility] Comment on above: Result Comment: Ubaldo [...] Myocardial Infarction Performed By: #### L [id number] ####Shellfish Weigher: KEMAR ABEBE ([phone])[facility])[address] PT Coag (PPP) [Time] 14.0 s High 9.0-12.0 [facility] Comment on above: Performed By: #### L [id number] ####Shellfish Weigher: KEMAR ABEBE ([id number])[facility] ([facility])[address] PT Coag (Bld) [Time]on 10-19 INR Coag (PPP) [Relative time] 1.3 {INR} High 0.9 - 1.1 [facility] Comment on above: Recommended Anticoag ulant [...] Interpretation and review of laboratory results Abnormal [facility] Progress Noteon 10-19-2024 Progress Note Normal [facility] Progress Note Normal [facility] US GUIDED PERCUTANEOUS PERIT HARRY OR RETROPERITONEAL FLUID COLLECTION DRAINAGEon 10-19-2024 US GUIDED PERCUTANEOUS PERITONEAL OR RETROPERITONEAL FLUID COLLECTION DRAINAGE Normal [facility] US Guidance for biopsy of Un specified body regionon 10-19-2024 Successful placement of a drainage catheter into the gallbladder using ultrasound guidance. Report Dictated on Electronically Signed By: Alfredito Baumann MD Electronically Signed Date/Time: 10/19/2024 2:22 PM [facility] Patient [...] advanced. Subcutaneous tract was dilated. An 8 Tajik drainage catheter advanced over the wire. The catheter was attached to a bag. A dressing was applied. [facility] Alfredito Baumann MD - 10/19/2024 Patient Name: WILL JACINTO : 1965 [facility]#: [id number] Exam Date/Time: 10/19/2024 13:34 Procedure: US GUIDED [...] advanced. Subcutaneous tract was dilated. An 8 Tajik drainage catheter advanced over the wire. The catheter was attached to a bag. A dressing was applied. IMPRESSION: Successful placement of a drainage catheter into the gallbladder using ultrasound guidance. Report Dictated on Electronically Signed By: Alfredito Baumann MD Electronically Signed Date/Time: 10/19/2024 2:22 PM EST [facility] Radiology Study observation (narrative) [facility] US Guidance for biopsy of Un specified body regionOrdered By: Alfredito Baumann on 10-19-2024 [facility] [employer] Work Phone: Urinalysis complete panel (U )Ordered By: Jyoti Cartwright on 10-19-2024 Amorphous Crystals, Urine Few Abnormal Negative /HPF [facility] Bacteria LM.HPF (Urine sed) [#/Area] Few Abnormal Negative /HPF [facility] Bilirubin Ql (U) Negative Negative mg/dL [facility] Clarity (U) Turbid Abnormal Clear [facility] Color (U) Yellow Lt. Yellow [facility] Epithelial cells.squamous LM.HPF (Urine sed) [#/Area] 0-2 [facility] Glucose Ql (U) Normal Normal (<70) mg/dL [facility] Granular casts LM.HPF (Urine sed) [#/Area] 3-5 Abnormal Negative /LPF [facility] Hemoglobin Ql (U) 0.2 mg/dL Abnormal Negative [facility] Hyaline casts Auto (Urine sed) [#/Area] 3-5 Abnormal Negative /LPF [facility] Interpretation and review of laboratory results Abnormal [facility] Ketones (U) [Mass/Vol] Negative Negat bernard mg/dL [facility] Leukocyte clumps LM.HPF (Urine sed) [#/Area] Rare Abnormal Negative /HPF [facility] Leukocyte esterase Test strip Ql (U) 500 Abnormal Negative Kat/uL [facility] Mucus LM.HPF (Urine sed) [#/Area] Few Negative /LPF [facility] Nitrite Ql (U) Negative Negative [facility] Non-Squamous Epithalial Cells, Urine 0-2 Abnormal Negative /HPF [facility] pH (U) 5.5 [pH] 5.0 - 8.0 pH [facility] Protein (U) [Mass/Vol] 50 mg/dL Abnormal Negative [facility] RBC LM.HPF (Urine sed) [#/Area] 11-25 Abnormal [facility] Specific gravity (U) [Rel density] High 1.005 - 1.030 [facility] Urobilinogen (U) [Mass/Vol] Normal Normal (0-1) mg/dL [facility] WBC LM.HPF (Urine sed) [#/Area] 51-100 Abnormal [facility] CBC W Auto Differential pane l (Bld)Ordered By: Silvia Bone on 10-18-2024 Erythrocyte distribution width (RBC) [Ratio] 14.5 % 11.5 - 15.0 % [facility] Hematocrit (Bld) [Volume fraction] 36.8 % Male: 40.0-52.0 ; Female: 35.0-47.0 [facility] Hemoglobin (Bld) [Mass/Vol] 11.6 g/dL Low 11.7 - 18.0 g/dL [facility] Interpretation and review of laboratory results Abnormal [facility] MCH (RBC) [Entitic mass] 27.1 pg 26.0 - 34.0 pg [facility] MCHC (RBC) [Mass/Vol] 31.5 % 30.5 - 36.0 % [facility] MCV (RBC) [Entitic vol] 86 fL 77.0 - 99.0 fL [facility] Platelet mean volume (Bld) [Entitic vol] 9.8 fL 9.0 - 12.7 fL [facility] Platelets (Bld) [#/Vol] 373 10*3/uL 140 - 440 10*3/uL [facility] RBC (Bld) [#/Vol] 4.28 10*6/uL Male: 4.40-5.90; Female: 3.80-5.20 [facility] WBC (Bld) [#/Vol] 25.9 10*3/uL High 3.6 - 10.7 10*3/uL [facility] CBC WITH AUTO DIFFERENTIALon 10-18-2024 Erythrocyte distribution width (RBC) [Ratio] 14.5 % Normal 11.5-15.0 [facility] Comment on above: Performed By: #### L [id number], [id number] ####Shellfish Weigher: KEMAR ABEBE ([id number])[facility] ([address] Hematocrit (Bld) [Volume fraction] 36.8 % Normal Male: 40.0-52.0 ; Female: 35.0-47.0 [facility] Comment on above: Performed By: #### L [id number], [id number] ####Shellfish Weigher: KEMAR ABEBE ([id number])[facility] ([facility])[address] [place] [address] Hemoglobin (Bld) [Mass/Vol] 11.6 g/dL Low 11.7-18.0 [facility] Comment on above: Performed By: #### L [id number], [id number] ####Shellfish Weigher: KEMAR [id number])[facility] (SBHLAB)[address] MCH (RBC) [Entitic mass] 27.1 pg Normal 26.0-34.0 [facility] Comment on above: Performed By: #### L [id number], [id number] ####Shellfish Weigher: KEMAR ANDRAE ([id number])[facility] (SBHLAB)[address] MCHC 31.5 % Normal 30.5-36.0 [facility] Comment on above: Performed By: #### L [id number], [id number] ####Shellfish Weigher: KEMAR ANDRAE ([id number])[facility] (SBHLAB)[address] MCV (RBC) [Entitic vol] 86.0 fL Normal 77.0-99.0 [facility] Comment on above: Performed By: #### L [id number], [id number] ####Shellfish Weigher: KEMAR LUDWIGSAAD ([id number])[facility] (SB[facility]AB)[address] Platelet mean volume (Bld) [Entitic vol] 9.8 fL Normal 9.0-12.7 [facility] Comment on above: Performed By: #### L [id number], [id number] ####Shellfish Weigher: KEMAR ABEBE ([id number])[facility] (SB[facility])[address] Platelets (Bld) [#/Vol] 373 10*3/uL Normal 140-440 [facility] Comment on above: Performed By: #### L [id number], [id number] ####Shellfish Weigher: KEMAR LUDWIGSAAD ([id number])[facility] (SB[facility])[address] RBC (Bld) [#/Vol] 4.28 10*6/uL Normal Male: 4.40-5.90; Female: 3.80-5.20 [facility] Comment on above: Performed By: #### L [id number], [id number] ####Shellfish Weigher: KEMAR ABEBE ([phone])[facility] [place] ([facility])[address] [place] [address] WBC (Bld) [#/Vol] 25.9 10*3/uL High 3.6-10.7 [facility] Comment on above: Performed By: #### L [id number], [id number] ####Shellfish Weigher: KEMAR ABEBE ([phone])[facility] [place] ([facility])[address] COMPLETE URINALYSISon 2023 AMORPHOUS CRYSTALS (#/HPF) IN URINE Few Abnormal Negative [facility] Comment on above: Performed By: #### L [id number] ####Shellfish Weigher: MARCELA LUCERO ([phone])[facility] ([facility])[address] [place] [address]#### [id number] ####Shellfish Weigher: KEMAR ABEBE ([phone])[facility] [place] ([facility])[address] [place] [address] BACTERIA (#/HPF) IN URINE Few Abnormal Negative [facility] Comment on above: Performed By: #### L [id number] ####Shellfish Weigher: MARCELA LUCERO ([phone])[facility] ([facility])[address] [place] [address]#### [id number] ####Shellfish Weigher: KEMAR ABEBE ([phone])[facility] [place] ([facility])[address] [place] [address] BILIRUBIN, TOTAL PRESENCE IN URINE Negative Normal Negative [facility] Comment on above: Performed By: #### L [id number] ####Shellfish Weigher: MARCELA LUCERO ([phone])[facility] ([facility])[address] [place] [address]#### [id number] ####Shellfish Weigher: KEMAR ABEBE ([id number])[facility] [place] ([facility])[address] Clarity (U) Turbid Abnormal Clear [facility] Comment on above: Performed By: #### L [id number] ####Shellfish Weigher: MARCELA LUCERO ([phone])[facility] ([facility])[address] [place] [address]#### [id number] ####Shellfish Weigher: KEMAR ABEBE ([phone])[facility] ([facility])[address] [place] [address] Color (U) Yellow Normal Lt. Yellow [facility] Comment on above: Performed By: #### L [id number] ####Shellfish Weigher: MARCELA LUCERO ([phone])[facility] ([facility])[address] [place] [address]#### [id number] ####Shellfish Weigher: KEMAR ABEBE ([phone])[facility] ([facility])[address] [place] [address] GLUCOSE (MG/DL) IN URINE Normal Normal Normal (<70) [facility] Comment on above: Performed By: #### L [id number] ####Shellfish Weigher: MARCELA LUCERO ([phone])[facility] ([facility])[address] [place] [address]#### [id number] ####Shellfish Weigher: KEMAR ABEBE ([id number])[facility] ([facility])[address] [place] [address] GRANULAR CASTS (#/LPF) IN URINE 3-5 Abnormal Negative [facility] Comment on above: Performed By: #### L [id number] ####Shellfish Weigher: MARCELA LUCERO ([phone])[facility] [place] [address]#### [id number] ####Shellfish Weigher: KEMAR ABEBE ([phone])[facility] ([facility])[address] [place] [address] HEMOGLOBIN PRESENCE IN URINE 0.2 mg/dL Abnormal Negative [facility] Comment on above: Performed By: #### L [id number] ####Shellfish Weigher: MARCELA LUCERO ([id number])[facility] ([facility])[address] [place] [address]#### [id number] ####Shellfish Weigher: KEMAR ABEBE ([phone])[facility] [place] ([facility])[address] [place] [address] HYALINE CASTS (#/LPF) IN URINE SEDIMENT BY MICROSCOPY 3-5 Abnormal Negative [facility] Comment on above: Performed By: #### L [id number] ####Shellfish Weigher: MARCELA LUCERO ([phone])[facility] ([facility])[address] [place] [address]#### [id number] ####Shellfish Weigher: KEMAR ABEBE ([phone])[facility] [place] ([facility])[address] [place] [address] Ketones Ql (U) Negative Normal Negative [facility] Comment on above: Performed By: #### L [id number] ####Shellfish Weigher: MARCELA LUCERO ([phone])[facility] ([facility])[address] [place] [address]#### [id number] ####Shellfish Weigher: KEMAR ABEBE ([phone])[facility] ([facility])[address] [place] [address] LEUKOCYTE ESTERASE PRESENCE IN URINE BY TEST STRIP 500 Kat/uL Abnormal Negative [facility] Comment on above: Performed By: #### L [id number] ####Shellfish Weigher: MARCELA LUCERO ([phone])[facility] ([facility])[address] [place] [address]#### [id number] ####Shellfish Weigher: KEMAR ABEBE ([phone])[facility] [place] ([facility])[address] [place] [address] MUCUS (#/LPF) IN URINE SEDIMENT Few Normal Negative [facility] Comment on above: Performed By: #### L [id number] ####Shellfish Weigher: MARCELA LUCERO ([phone])[facility] ([facility])[address] [place] [address]#### [id number] ####Shellfish Weigher: KEMAR ABEBE ([phone])[facility] [place] [address] NITRITE PRESENCE IN URINE Negative Normal Negative [facility] Comment on above: Performed By: #### L [id number] ####Shellfish Weigher: MARCELA LUCERO ([phone])[facility] ([facility])[address] [place] [address]#### [id number] ####Shellfish Weigher: KEMAR ABEBE ([id number])[facility] ([facility])[address] [place] [address] NON-SQUAMOUS EPITHELIAL (#/HPF) IN URINE 0-2 Abnormal Negative [facility] Comment on above: Performed By: #### L [id number] ####Shellfish Weigher: MARCELA LUCERO ([phone])[facility] ([facility])[address] [place] [address]#### [id number] ####Shellfish Weigher: KEMAR ABEBE ([id number])[facility] ([facility])[address] [place] [address] pH (U) 5.5 [pH] Normal 5.0-8.0 [facility] Comment on above: Performed By: #### L [id number] ####Shellfish Weigher: MARCELA LUCERO ([id number])[facility] ([facility])[address] [place] [address]#### [id number] ####Shellfish Weigher: KEMAR ABEBE ([id number])[facility] [place] [address] Protein (U) [Mass/Vol] 50 mg/dL Abnormal Negative [facility] Comment on above: Performed By: #### L [id number] ####Shellfish Weigher: MARCELA LUCERO ([phone])[facility] ([facility])[address] [place] [address]#### [id number] ####Shellfish Weigher: KEMAR ABEBE ([id number])[facility] [place] [address] RBC (#/HPF) IN URINE SEDIMENT 11-25 Abnormal 0-2 [facility] Comment on above: Performed By: #### L [id number] ####Shellfish Weigher: MARCELA LUCERO ([phone])[facility] ([facility])[address] [place] [address]#### [id number] ####Shellfish Weigher: KEMAR ABEBE ([phone])[facility] [place] [address] Specific gravity (U) [Rel density] >1.030 High 1.005-1.030 [facility] Comment on above: Performed By: #### L [id number] ####Shellfish Weigher: MARCELA LUCERO ([id number])[facility] ([facility])[address] [place] [address]#### [id number] ####Shellfish Weigher: KEMAR ABEBE ([id number])[facility])[address] [place] [address] SQUAMOUS EPITHELIAL CELLS (#/HPF) IN URINE SEDIMENT 0-2 Normal 3-5 [facility] Comment on above: Performed By: #### L [id number] ####Shellfish Weigher: MARCELA LUCERO ([id number])[facility] ([facility])[address] [place] [address]#### [id number] ####Shellfish Weigher: KEMAR ABEBE ([id number])[facility])[address] [place] [address] UROBILINOGEN (MG/DL) IN URINE Normal Normal Normal (0-1) [facility] Comment on above: Performed By: #### L [id number] ####Shellfish Weigher: MARCELA LUCERO ([phone])[facility] ([facility])[address] [place] [address] [place]#### [id number] ####Shellfish Weigher: KEMAR ABEBE ([phone])[facility] [place] ([facility])[address] WBC (LEUKOCYTE) (#/HPF) IN URINE SEDIMENT 51-100 Abnormal 0-5 [facility] Comment on above: Performed By: #### L [id number] ####Shellfish Weigher: MARCELA LUCERO ([phone])[facility] ([facility])[address]#### [id number] ####Shellfish Weigher: KEMAR ABEBE ([id number])[facility] [place] ([facility])[address] WBC (LEUKOCYTE) CLUMPS (#/HPF) IN URINE SEDIMENT Rare Abnormal Negative [facility] Comment on above: Performed By: #### L [id number] ####Shellfish Weigher: MARCELA LUCERO ([phone])[facility] ([facility])[address] [place] [address]#### [id number] ####Shellfish Weigher: KEMAR ABEBE ([phone])[facility] [place] ([facility])[address] COMPREHENSIVE METABOLIC PANE Gigi 10-18-2024 Albumin [Mass/Vol] 3.0 g/dL Low 3.5-5.0 [facility] Comment on above: Performed By: #### L AB17, LAB99, [id number] ####Shellfish Weigher: KEMAR ABEBE ([id number])[facility] [place] ([facility])[address] ALP [Catalytic activity/Vol] 133 U/L Normal [facility] Comment on above: Performed By: #### L AB17, LAB99, [id number] ####Shellfish Weigher: KEMAR ABEBE ([id number])[facility] [place] ([facility])[address] ALT [Catalytic activity/Vol] 67 U/L Normal [facility] Comment on above: Performed By: #### Elijah MENDOZA, LAB99, [id number] ####Shellfish Weigher: KEMAR ABEBE ([id number])[facility] [place] ([facility])[address] Anion gap [Moles/Vol] 13 mmol/L Normal 3-13 [facility] Comment on above: Performed By: #### Elijah MENDOZA, LAB99, [id number] ####Shellfish Weigher: KEMAR ABEBE ([id number])[facility] ([facility])[address] AST [Catalytic activity/Vol] 50 U/L High <34 [facility] Comment on above: Performed By: #### Elijah MENDOZA, LAB99, [id number] ####Shellfish Weigher: KEMAR ABEBE ([id number])[facility] [place] ([facility])[address] Bilirubin [Mass/Vol] 0.7 mg/dL Normal <1.2 [facility] Comment on above: Performed By: #### Elijah MENDOZA, LAB99, [id number] ####Shellfish Weigher: KEMAR ABEBE ([id number])[facility] ([facility])[address] Calcium [Mass/Vol] 9.0 mg/dL Normal 8.4-10.2 [facility] Comment on above: Performed By: #### Elijah MENDOZA, LAB99, [id number] ####Shellfish Weigher: KEMAR ABEBE ([id number])[facility] [place] ([facility])[address] Chloride [Moles/Vol] 103 mmol/L Normal 98-107 [facility] Comment on above: Performed By: #### Elijah ABOsmin, LAB99, [id number] ####Shellfish Weigher: KEMAR ABEBE ([id number])[facility] ([facility])[address] [place] [address] [place] CO2 [Moles/Vol] 21 mmol/L Low 22-29 [facility] Comment on above: Performed By: #### Elijah AB17, LAB99, [id number] ####Shellfish Weigher: KEMAR ABEBE ([id number])[facility] [place] ([facility])[address] Creatinine [Mass/Vol] 1.16 mg/dL Normal [facility] Comment on above: Performed By: #### Elijah AB17, LAB99, [id number] ####Shellfish Weigher: KEMAR ABEBE ([id number])[facility] ([facility])[address] GLOMERULAR FILTRATION RATE ML/MIN/1.73 SQ M.PREDICTED 55.1 mL/min/1.73m*2 Low >60.0 [facility] Comment on above: Result Comment: Calc ulation based on the Chronic Kidney Disease Epidemiology Collaboration (CKD-EPI) equation refit without adjustment for race Performed By: #### Elijah [id number], LAB99, [id number] ####Shellfish Weigher: KEMAR ABEBE ([phone])[facility] ([facility])[address] [place] [address] Glucose [Mass/Vol] 226 mg/dL High 74-100 [facility] Comment on above: Performed By: #### Elijah AB17, LAB99, [id number] ####Shellfish Weigher: KEMAR ABEBE ([id number])[facility] ([facility])[address] Potassium [Moles/Vol] 4.1 mmol/L Normal 3.5-5.1 [facility] Comment on above: Result Comment: [facility] potassium values may be up to 0.5 mmol/L lower than serum values. Performed By: #### L AB17, LAB99, [id number] ####Shellfish Weigher: KEMAR ABEBE ([phone])[facility] ([facility])[address] Protein [Mass/Vol] 6.7 g/dL Normal 6.4-8.3 [facility] Comment on above: Performed By: #### L AB17, LAB99, [id number] ####Shellfish Weigher: KEMAR ABEBE ([id number])[facility] ([facility])[address] Sodium [Moles/Vol] 137 mmol/L Normal 136-145 [facility] Comment on above: Performed By: #### L AB17, LAB99, [id number] ####Shellfish Weigher: KEMAR ABEBE ([id number])[facility] ([facility])[address] Urea nitrogen [Mass/Vol] 24 mg/dL High 9-23 [facility] Comment on above: Performed By: #### L AB17, LAB99, [id number] ####Shellfish Weigher: KEMAR ABEBE ([phone])[facility] ([facility])[address] [place] [address] [place] ABDOMEN PELVIS W CONTRAST on 10-18-2024 CT ABDOMEN PELVIS W CONTRAST Normal [facility] CT Abdomen and Pelvis W cont rast Erica 10-18-2024 Distended gallbladde r with suspected gallbladder wall edema concerning for acute cholecystitis. Distended stomach with air-fluid level may be related. Please correlate clinically. Follow-up recommended. CTR Dr Woodall. Report Dictated on Electronically Signed By: Javy Urias MD Electronically Signed Date/Time: 10/18/2024 7:12 PM [facility] Patient Name: WILL ALVARADO : 1965 [...] No definite aneurysm. No spinal compression. [facility] Javy Urias MD - 10/18/2024 [facility] 1965 [id number] Exam Date/Time: 10/18/2024 17:21 Procedure: CT ABDOMEN [...] Electronically Signed Date/Time: 10/18/2024 7:12 PM EST [facility] Radiology Study observation (narrative) [facility] CTA Chest vessels WO and W c ontrast Erica 10-18-2024 Impression:Very limi laura due to motion.. Consider repeat exam or VQ scan for persistent symptoms. Note made of distended stomach with air-fluid level. Report Dictated on Electronically Signed By: Javy Urias MD Electronically Signed Date/Time: 10/18/2024 7:05 PM [facility] Patient Name: WILL ALVARADO [facility] 1965 [id number] Exam Date/Time: 10/18/2024 17:20 Procedure: CT CHEST [...] Distended stomach with air-fluid level. Significance uncertain.. [facility] Javy Urias MD - 10/18/2024 Patient [...] Electronically Signed Date/Time: 10/18/2024 7:05 PM EST [facility] Radiology Study observation (narrative) [facility] CTA Chest vessels WO and W c ontrast IVOrdered By: Javy Urias on 10-18-2024 [facility] Work Phone: Comprehensive metabolic 1998 panelon 10-18-2024 Albumin [Mass/Vol] 3 g/dL Low 3.5 - 5.0 g/dL [facility] ALP [Catalytic activity/Vol] 133 U/L [facility] ALT [Catalytic activity/Vol] 67 U/L [facility] Anion gap [Moles/Vol] 13 mmol/L 3 - 13 mmol/L [facility] AST [Catalytic activity/Vol] 50 U/L High NINF - 34 U/L [facility] Bilirubin [Mass/Vol] 0.7 mg/dL [facility] - 1.2 mg/dL [facility] Calcium [Mass/Vol] 9 mg/dL 8.4 - 10. 2 mg/dL [facility] Chloride [Moles/Vol] 103 mmol/L 98 - 10 7 mmol/L [facility] CO2 [Moles/Vol] 21 mmol/L Low 22 - 29 mmol/L [facility] Creatinine [Mass/Vol] 1.16 mg/dL [facility] GFR/1.73 sq M.predicted (S/P/Bld) [Vol rate/Area] 55.1 mL/min Low - PINF [facility] Comment on above: Calculation based on the Chronic Kidney Disease Epidemiology Collaboration (CKD-EPI) equation refit without adjustment for race Glucose [Mass/Vol] 226 mg/dL High 74 - 100 mg/dL [facility] Interpretation and review of laboratory results Abnormal [facility] Potassium [Moles/Vol] 4.1 mmol/L 3.5 - 5.1 mmol/L [facility] Comment on above: Plasma potassium helen ues may be up to 0.5 mmol/L lower than serum values. Protein [Mass/Vol] 6.7 g/dL 6.4 - 8.3 g/dL [facility] Sodium [Moles/Vol] 137 mmol/L 136 - 145 mmol/L [facility] Urea nitrogen [Mass/Vol] 24 mg/dL High 9 - 23 mg/dL [facility] ECG 12-LEADon 10-18-2024 ECG 12-LEAD IMPRESSION: Sinus rhythm Left ventricular hypertrophy Anterior Q waves, possibly due to LVH Electronically Signed On 10-18-2024 23:06:53 EST by Sunitha Borja Normal [facility] ED Nursing Noteon 10-18-2024 ED Nursing Note EKG at bedside Normal [facility] ED Nursing Note EKG called Normal [facility] ED Nursing Note Pt presents to er [facility]. Pt presents with abd pain, diarrhea, chest pain. Pt presents aox4 speaking in full and complete sentences. Normal [facility] ED Provider Noteon ED Provider Note Normal [facility] HIGH SENSITIVITY TROPONIN, S ERIAL BASELINEon 10-18-2024 TROPONIN HIGH SENSITIVITY BASELINE <3 Normal [facility] Comment on above: Performed By: #### L AB17, LAB99, [id number] ####Shellfish Weigher: KEMAR ABEBE ([phone])[facility] ([facility])[address] [place] [address] HIGH SENSITIVITY TROPONIN, S ERIAL, SECOND TESTon 10-18-2024 TROPONIN HS DELTA, BASELINE TO SECOND Normal [facility] Comment on above: Result Comment: A [...] further clinical guidance. Performed By: #### L [id number] ####Shellfish Weigher: KEMAR ABEBE ([id number])[facility] TROPONIN HS, SERIAL REFLEX, TEST TWO <3 Normal [facility] Comment on above: Performed By: #### L [id number] ####Shellfish Weigher: KEMAR ABEBE ([id number])[facility] ([facility])[address] LACTIC ACID WITH REFLEXon Lactate [Moles/Vol] 0.8 mmol/L Normal 0.5-2.2 [facility] Comment on above: Performed By: #### L [id number] ####Shellfish Weigher: KEMAR ABEBE ([id number])[facility] ([facility])[address] [place] [address] Lactate [Moles/Vol] 2.2 mmol/L Normal 0.5-2.2 [facility] Comment on above: Performed By: #### L [id number] ####Shellfish Weigher: KEMAR ABEBE ([phone])[facility] ([facility])[address] LIPASEon 10-18-2024 Lipase [Catalytic activity/Vol] 6 U/L Normal <55 [facility] Comment on above: Performed By: #### L AB17, LAB99, [id number] ####Shellfish Weigher: KEMAR ABEBE ([phone])[facility] ([facility])[address] Laboratory - Chemistry and C hemistry - challengeon 10-18-2024 Lactate [Moles/Vol] 0.8 mmol/L 0.5 - 2. 2 mmol/L [facility] Glucose [Mass/Vol] 136 mg/dL High 70 - 100 mg/dL [facility] Lactate [Moles/Vol] 2.2 mmol/L 0.5 - 2. 2 mmol/L [facility] Lipase [Catalytic activity/Vol] 6 U/L NINF - 55 U/L [facility] Lipase [Catalytic activity/V ol]on 10-18-2024 Interpretation and review of laboratory results Normal [facility] MANUAL DIFFERENTIALon 2023 BAND NEUTROPHILS TOTAL PER COUNTED LEUKOCYTES BY MANUAL COUNT 7 Normal [facility] Comment on above: Performed By: #### L [id number], [id number] ####Shellfish Weigher: KEMAR ABEBE ([id number])[facility] [place] ([facility])[address] BANDS 0.9 10*3/uL High <=0.0 [facility] Comment on above: Performed By: #### L [id number], [id number] ####Shellfish Weigher: KEMAR ABEBE ([id number])[facility] [place] ([facility])[address] CELLS COUNTED TOTAL (#) IN BLOOD 200 Normal [facility] Comment on above: Performed By: #### L [id number], [id number] ####Shellfish Weigher: KEMAR ABEBE ([phone])[facility] [place] ([facility])[address] LEUKOCYTE MORPHOLOGY FINDING IN BLOOD Normal Normal [facility] Comment on above: Performed By: #### L [id number], [id number] ####Shellfish Weigher: KEMAR ABEBE ([phone])[facility] [place] ([facility])[address] LEUKOCYTES (10*3/UL) NUCLEATED ERYTHROCYTE ADJUST 25.9 10*3/uL High 3.6-10.7 [facility] Comment on above: Performed By: #### L [id number], [id number] ####Shellfish Weigher: KEMAR ABEBE ([phone])[facility] [place] ([facility])[address] [place] [address] [place] LYMPHOCYTES (10*3/UL) IN BLOOD BY MANUAL COUNT 0.4 10*3/uL Low 1.0-4.3 [facility] Comment on above: Performed By: #### L [id number], [id number] ####Shellfish Weigher: KEMAR ABEBE ([phone])[facility] [place] ([facility])[address] [place] [address] [place] LYMPHOCYTES TOTAL PER COUNTED LEUKOCYTES BY MANUAL COUNT 3 Normal [facility] Comment on above: Performed By: #### L [id number], [id number] ####Shellfish Weigher: KEMAR ABEBE ([phone])[facility] [place] ([facility])[address] [place] [address] [place] LYMPHOCYTES VARIANT/100 LEUKOCYTES IN BLOOD 3 % High <=0 [facility] Comment on above: Performed By: #### L [id number], [id number] ####Shellfish Weigher: KEMAR ABEBE ([phone])[facility] [place] ([facility])[address] [place] [address] [place] LYMPHOCYTES/100 LEUKOCYTES IN BLOOD BY MANUAL COUNT 2 % Low 15-45 [facility] Comment on above: Performed By: #### L [id number], [id number] ####Shellfish Weigher: KEMAR ABEBE ([id number])[facility] [place] ([facility])[address] [place] [address] [place] METAMYELOCYTES (10*3/UL) IN BLOOD BY MANUAL COUNT 0.1 10*3/uL High <=0.0 [facility] Comment on above: Performed By: #### L [id number], [id number] ####Shellfish Weigher: KEMAR ABEBE ([phone])[facility] [place] ([facility])[address] [place] [address] [place] METAMYELOCYTES TOTAL PER COUNTED LEUKOCYTES BY MANUAL COUNT 1 Normal [facility] Comment on above: Performed By: #### L [id number], [id number] ####Shellfish Weigher: KEMAR ABEBE ([phone])[facility] [place] ([facility])[address] [place] [address] [place] METAMYELOCYTES/100 LEUKOCYTES IN BLOOD BY MANUAL COUNT 1 % High <=0 [facility] Comment on above: Performed By: #### L [id number], [id number] ####Shellfish Weigher: KEMAR ABEBE ([phone])[facility] [place] ([facility])[address] [place] [address] [place] MONOCYTES (10*3/UL) IN BLOOD BY MANUAL COUNT 1.4 10*3/uL High 0.0-0.9 [facility] Comment on above: Performed By: #### L [id number], [id number] ####Shellfish Weigher: KEMAR ABEBE ([phone])[facility] [place] ([facility])[address] [place] [address] [place] MONOCYTES TOTAL PER COUNTED LEUKOCYTES BY MANUAL COUNT 11 Normal [facility] Comment on above: Performed By: #### L [id number], [id number] ####Shellfish Weigher: KEMAR ABEBE ([id number])[facility] [place] [facility] [place] [address] [place] MONOCYTES/100 LEUKOCYTES IN BLOOD BY MANUAL COUNT 6 % Normal 5-13 [facility] Comment on above: Performed By: #### L [id number], [id number] ####Shellfish Weigher: KEMAR ABEBE ([id number])[facility] [place] [address] [place] NEUTROPHILS (SEGS+BANDS) (10*3/UL) BY MANUAL COUNT 23.2 10*3/uL High 1.8-7.0 [facility] Comment on above: Performed By: #### L [id number], [id number] ####Shellfish Weigher: KEMAR ABEBE ([id number])[facility] [place] [place] [address] [place] NEUTROPHILS BAND FORM/100 LEUKOCYTES IN BLOOD BY MANUAL COUNT 4 % High <=0 [facility] Comment on above: Performed By: #### L [id number], [id number] ####Shellfish Weigher: KEMAR ABEBE ([id number])[facility] ([facility])[address] [place] [address] [place] NEUTROPHILS TOTAL PER COUNTED LEUKOCYTES BY MANUAL COUNT 172 Normal [facility] Comment on above: Performed By: #### L [id number], [id number] ####Shellfish Weigher: KEMAR ABEBE ([id number])[facility] ([facility])[address] [place] [address] [place] PLATELET MORPHOLOGY IN BLOOD Normal Normal [facility] Comment on above: Performed By: #### L [id number], [id number] ####Shellfish Weigher: KEMAR ABEBE ([phone])[facility] ([facility])[address] [place] [address] [place] RBC MORPHOLOGY IN BLOOD Normal Normal [facility] Comment on above: Performed By: #### L [id number], [id number] ####Shellfish Weigher: KEMAR ABEBE ([phone])[facility] ([facility])[address] [place] [address] [place] SEGEMENTED NEUTROPHILS/100 LEUKOCYTES BY MANUAL COUNT 86 % High 38-82 [facility] Comment on above: Performed By: #### L [id number], [id number] ####Shellfish Weigher: KEMAR ABEBE ([phone])[facility] ([facility])[address] [place] [address] [place] SEGMENTED NEUTROPHILS (10*3/UL)IN BLOOD BY MANUAL COUNT 23.2 10*3/uL High 1.8-7.5 [facility] Comment on above: Performed By: #### L [id number], [id number] ####Shellfish Weigher: KEMAR ABEBE ([phone])[facility] [place] [address] [place] VARIANT LYMPHOCYTES (10*3/UL) IN BLOOD BY MANUAL COUNT 0.8 10*3/uL High <=0.0 [facility] Comment on above: Performed By: #### L [id number], [id number] ####Shellfish Weigher: KEMAR ABEBE ([phone])[facility] [place] [address] [place] VARIANT LYMPHOCYTES TOTAL PER COUNTED LEUKOCYTES BY MANUAL COUNT 6 Normal [facility] Comment on above: Performed By: #### L [id number], [id number] ####Shellfish Weigher: KEMAR ABEBE ([phone])[facility] ([facility] Manual differential performe d Ql (Bld)on 10-18-2024 Atypical Lymphocytes Manual 6 [facility] Band form neutrophils (Bld) [#/Vol] 0.9 10*3/uL High NINF - 0.0 10*3/uL [facility] Band form neutrophils/100 WBC (Bld) 4 % High NINF - 0 % [facility] Bands Manual 7 [facility] Cells Counted Total (Bld) [#] 200 {cells} [facility] Interpretation and review of laboratory results Abnormal [facility] Leukocyte morphology finding Nom (Bld) Normal [facility] Lymphocytes (Bld) [#/Vol] 0.4 10*3/uL Low 1.0 - 4.3 10*3/uL [facility] Lymphocytes Manual 3 [facility] Lymphocytes/100 WBC (Bld) 2 % Low 15 - 45 % [facility] Metamyelocytes (Bld) [#/Vol] 0.1 10*3/uL High NINF - 0.0 10*3/uL [facility] Metamyelocytes Manual 1 [facility] Metamyelocytes/100 WBC (Bld) 1 % High NINF - 0 % [facility] Monocytes (Bld) [#/Vol] 1.4 10*3/uL High 0.0 - 0.9 10*3/uL [facility] Monocytes Manual 11 [facility] Monocytes/100 WBC (Bld) 6 % 5 - 13 % [facility] Neutrophils (Bld) [#/Vol] 23.2 10*3/uL High 1.8 - 7.5 10*3/uL [facility] Neutrophils Manual 172 [facility] Platelet morphology finding Nom (Bld) Normal [facility] RBC morphology finding Nom (Bld) Normal [facility] Segmented neutrophils/100 WBC (Bld) 86 % High 38 - 82 % [facility] Variant lymphocytes (Bld) [#/Vol] 0.8 10*3/uL High NINF - 0.0 10*3/uL [facility] Variant lymphocytes/100 WBC (Bld) 3 % High NINF - 0 % [facility] WBC corrected for nucl RBC (Bld) [#/Vol] 25.9 10*3/uL High 3.6 - 10.7 10*3/uL [facility] No Panel Informationon 10-18 Interpretation and review of laboratory results Normal [facility] Sinus rhythm Left ventricular hypertrophy Anterior Q waves, possibly due to LVH Electronically Signed On 10-18-2024 23:06:53 EST by Sunitha Borja CV Sunitha Patel MD - 10/18/2024 IMPRESSION: Sinus rhythm Left ventricular hypertrophy Anterior Q waves, possibly due to LVH Electronically Signed On 10-18-2024 23:06:53 EST by Sunitha Borja [facility] Interpretation and review of laboratory results Abnormal [facility] Performed by: [facility], [address] [place] [address] CLIA ID: [id number] [facility] Troponin HS Delta, Baseline to Second [facility] Comment on above: A troponin delta gre [...] guidance. Troponin HS, Serial Second ng/L ng/L [facility] Zando Troponin HS, Serial Baseline ng/L ng/L [facility] [employer] [facility] Interpretation and review of laboratory results Normal [facility] No Panel InformationOrdered By: Sunitha Borja on 10-18-2024 P Lynn 68 degrees [facility] Work Phone: NE Interval 185 ms [employer] Phone: QRS Lynn -37 degrees [employer] Work Phone: [phone] QRSD Interval 108 ms [employer] Phone: QT Interval 386 ms [facility] Work Phone: [phone] QTC Interval 489 ms [employer] Phone: T Wave Lynn 47 degrees [employer] Phone: [employer] TV Phone: URINE CULTUREon 10-18-2024 Bacteria identified Cx Nom (U) Normal [facility] Comment on above: Performed By: #### L [id number] ####Shellfish Weigher: MARCELA LUCERO ([phone])[facility] (SACLAB)[address]#### [id number] ####Shellfish Weigher: KEMAR ABEBE ([id number])[facility] (SBHLAB)[address] US ABDOMEN LIMITEDon 024 US ABDOMEN LIMITED Normal [facility] US Abdomen limitedon 024 1. Cholestasis, cholelithiasis, gallbladder wall thickening, with probable mural edema and trace pericholecystic fluid, as well as positive sonographic Caldwell's sign, suspicious for postinflammatory change, including acute cholecystitis. Clinical correlation and follow-up as indicated. Report Dictated on Electronically Signed By: Joel Haddad MD Electronically Signed Date/Time: 10/18/2024 8:21 PM [facility] [employer] Patient Name: WILL ALVARADO : 1965 [...] adequately visualized due to overlying bowel gas. [facility] Joel Haddad MD - 10/18/2024 Patient [...] Electronically Signed Date/Time: 10/18/2024 8:21 PM EST [facility] Radiology Study observation (narrative) [facility] US Abdomen limitedOrdered By : Joel Haddad on 10-18-2024 [employer] Work Phone: Vital signsOrdered By: Sunitha Borja on 10-18-2024 Heart rate 96 /min bpm [employer] Phone: 36on 10-17-2024 36 Called [facility] and spoke with nurse laney. I relayed the message below and she verbalized understanding. Normal [facility] 36 A lot of varibility. Many of results are adequate, many high. No clear trend to change doses thank you Normal [facility] 36on 10-16-2024 36 Patient's BGL Normal [facility] 36on 10-10-2024 36 Faxed recommendation to [facility]([phone]) Normal [facility] 36on 10-09-2024 36 Keep doses the same for now thank you Normal [facility] 36 Patient's BGL Normal [facility] 36on 10-04-2024 36 Patient's BGL Normal [facility] 36on 09-26-2024 36 Notified pt's nurse at his facilities. Normal [facility] 36on 09-25-2024 36 A lot of variability please keep doses the same thank you Normal [facility] 36 Patient's BGL Normal [facility] Hemoglobin A1con 09-22-2024 HbA1c (Bld) [Mass fraction] 7.6 % High 3.8-5.6 [facility] Comment on above: Order Comment: 103-1 Result Comment: Norm al < 5.7 % Prediabetic 5.7 - 6.4 % Diabetic >or= 6.5 % Please note range changes. Performed By: #### L 100.0500, [id number] #### [facility] [address] [place], [place], [id number] Hemoglobin A1c percentageOrd ered By: Jared Guzman on 09-22-2024 HbA1c (Bld) [Mass fraction] 7.6 % High 3.8-5.6 [facility] Comment on above: Normal < 5.7 % Predi abetic 5.7 - 6.4 % Diabetic >or= 6.5 % Please note range changes. 36on 09-20-2024 36 Faxed recommendation to [facility]. Thank you! Normal [facility] 36on 09-19-2024 36 Very high doses with variability and history severe hypoglycemia- would not change doses for now Normal [facility] 36 Patient's BGL Normal [facility] 36on 09-13-2024 36 Faxed info. To [facility]. [phone] Normal [facility] Laboratory - Chemistry and C hemistry - challengeon 01-27-2024 Glucose [Mass/Vol] 143 mg/dL High 70 - 100 mg/dL [facility] No Panel Informationon 01-26 Interpretation and review of laboratory results Abnormal [facility] Performed by: [facility], [address] [place] [id number] CLIA ID: [id number] [facility] Radiology Study observation (narrative) [facility] - Chemistry and C hemistry - challengeon 01-26-2024 Glucose [Mass/Vol] 101 mg/dL High 70 - 100 mg/dL [facility] Glucose [Mass/Vol] 111 mg/dL High 70 - 100 mg/dL [facility] Glucose [Mass/Vol] 102 mg/dL High 70 - 100 mg/dL [facility] No Panel Informationon 01-25 Interpretation and review of laboratory results Abnormal [facility] Performed by: [facility], [address] [place] [address] CLIA ID: [id number] [facility] Interpretation and review of laboratory results Abnormal [facility] Performed by: [facility], [address] [place] [address] CLIA ID: [id number] [facility] Interpretation and review of laboratory results Abnormal [facility] Performed by: [facility], [address] [place] [address] CLIA ID: [id number] [facility] Radiology Study observation (narrative) [facility] Radiology Study observation (narrative) [facility] Radiology Study observation (narrative) [facility] CBC W Auto Differential pane l (Bld)on 01-22-2024 Basophils (Bld) [#/Vol] 0.1 10*3/uL 0.0 - 0.2 10*3/uL [facility] Basophils/100 WBC (Bld) 0.5 % 0.0 - 2.0 % [facility] Eosinophils (Bld) [#/Vol] 0.1 10*3/uL 0.0 - 0.5 10*3/uL [facility] Eosinophils/100 WBC (Bld) 0.8 % 0.0 - 6.0 % [facility] Erythrocyte distribution width (RBC) [Ratio] 14.3 % 11.5 - 15.0 % [facility] Hematocrit (Bld) [Volume fraction] 35.6 % Male: 40.0-52.0 ; Female: 35.0-47.0 [facility] Hemoglobin (Bld) [Mass/Vol] 11.3 g/dL Low 11.7 - 18.0 g/dL [facility] Immature granulocytes (Bld) [#/Vol] 0.1 10*3/uL High NINF - 0.1 10*3/uL [facility] Immature granulocytes/100 WBC (Bld) 0.7 % 0.0 - 2.0 % [facility] Interpretation and review of laboratory results Abnormal [facility] Lymphocytes (Bld) [#/Vol] 1.4 10*3/uL 1.0 - 4.3 10*3/uL [facility] Lymphocytes/100 WBC (Bld) 14.3 % Low 15.0 - 45.0 % [facility] MCH (RBC) [Entitic mass] 27.5 pg 26.0 - 34.0 pg [facility] MCHC (RBC) [Mass/Vol] 31.7 % 30.5 - 36.0 % [facility] MCV (RBC) [Entitic vol] 86.6 fL 77.0 - 99.0 fL [facility] Monocytes (Bld) [#/Vol] 0.6 10*3/uL 0.0 - 0.9 10*3/uL [facility] Monocytes/100 WBC (Bld) 5.9 % 5.0 - 13.0 % [facility] Neutrophils (Bld) [#/Vol] 7.8 10*3/uL High 1.8 - 7.5 10*3/uL [facility] Neutrophils/100 WBC (Bld) 77.8 % 38.0 - 82.0 % [facility] Nucleated RBC/100 WBC (Bld) [Ratio] 0.0 % [facility] Platelet mean volume (Bld) [Entitic vol] 10.3 fL 9.0 - 12.7 fL [facility] Platelets (Bld) [#/Vol] 511 10*3/uL High 140 - 440 10*3/uL [facility] RBC (Bld) [#/Vol] 4.11 10*6/uL Male: 4.40-5.90; Female: 3.80-5.20 [facility] WBC (Bld) [#/Vol] 10.0 10*3/uL 3.6 - 10.7 10*3/uL [facility] CT Abdomen and Pelvis W cont [...] MD Electronically Signed Date/Time: 01/22/2024 4:54 AM [facility] [employer] RADIOLOGY SYSTEM Patient Name: WILL ALVARADO : 1965 [facility]#: [id number] Exam Date/Time: 01/22/2024 04:15 Procedure: CT ABDOMEN PELVIS W CONTRAST Ordering Provider: MORRSI TIMOTHY Reason For Exam: Abdominal pain, acute, [...] evidence of acute fracture or dislocation. [facility] RADIOLOGY SYSTEM Brandon Morgan MD - 01/22/2024 [facility] 1965 [id number] Exam Date/Time: 01/22/2024 04:15 Procedure: CT ABDOMEN [...] Electronically Signed Date/Time: 01/22/2024 4:54 AM EDT [facility] Radiology Study observation (narrative) [facility] CT Abdomen and Pelvis W cont rast IVOrdered By: Brandon Morgan on 01-22-2024 [employer] Work Phone: Comprehensive metabolic 1998 panelon 01-22-2024 Albumin [Mass/Vol] 4.2 g/dL 3.5 - 5.0 g/dL [facility] ALP [Catalytic activity/Vol] 121 U/L 38 - 126 U/L [facility] ALT [Catalytic activity/Vol] 32 U/L Male: 0-49 U/L; Female: 0-34 U/L [facility] Anion gap [Moles/Vol] 11 mmol/L 3 - 13 mmol/L [facility] AST [Catalytic activity/Vol] 26 U/L 15 - 46 U/L [facility] Bilirubin [Mass/Vol] 0.5 mg/dL 0.2 - 1 .3 mg/dL [facility] Calcium [Mass/Vol] 9.6 mg/dL 8.4 - 10. 4 mg/dL [facility] Chloride [Moles/Vol] 100 mmol/L 98 - 10 7 mmol/L [facility] CO2 [Moles/Vol] 25 mmol/L 22 - 30 mmol/L [facility] Creatinine [Mass/Vol] 0.61 mg/dL Male: 0.66-1.25 mg/dL; Female: 0.52-1.04 mg/dL [facility] GFR/1.73 sq M.predicted MDRD (S/P/Bld) [Vol rate/Area] - PINF [facility] Comment on above: Calculation based on the Chronic Kidney Disease Epidemiology Collaboration (CKD-EPI) equation refit without adjustment for race Glucose [Mass/Vol] 81 mg/dL 70 - 100 mg/dL [facility] Potassium [Moles/Vol] 4.0 mmol/L 3.5 - 5.1 mmol/L [facility] Protein [Mass/Vol] 7.5 g/dL 6.3 - 8.2 g/dL [facility] Sodium [Moles/Vol] 136 mmol/L 135 - 145 mmol/L [facility] Urea nitrogen [Mass/Vol] 13 mg/dL Male: 9-20 mg/dL; Female: 7-17 mg/dL [facility] Laboratory - Chemistry and C hemistry - challengeon 01-22-2024 Lactate [Moles/Vol] 0.7 mmol/L 0.7 - 2. 0 mmol/L [facility] Lipase [Catalytic activity/Vol] 41 U/L 23 - 300 U/L [facility] Lipase [Catalytic activity/V ol]on 01-22-2024 Interpretation and review of laboratory results Normal [facility] No Panel Informationon 01-21 Interpretation and review of laboratory results Normal [facility] Urinalysis complete panel (U )Ordered By: Erickson Olmedo on 01-22-2024 Bacteria LM.HPF (Urine sed) [#/Area] Few Abnormal Negative /HPF [facility] Bilirubin Ql (U) Negative Negative mg/dL [facility] Clarity (U) Clear Clear [facility] Color (U) Light Yellow Lt. Yellow [facility] Epithelial cells.squamous LM.HPF (Urine sed) [#/Area] 0-2 [facility] Glucose Ql (U) Normal Normal (<70) mg/dL [facility] Hemoglobin Ql (U) 1.0 mg/dL Abnormal Negative [facility] Interpretation and review of laboratory results Abnormal [facility] Ketones (U) [Mass/Vol] Negative Negat bernard mg/dL [facility] Leukocyte esterase Test strip Ql (U) 75 Abnormal Negative Kat/uL [facility] Mucus LM.HPF (Urine sed) [#/Area] Few Negative /LPF [facility] Nitrite Ql (U) Negative Negative [facility] pH (U) 8.0 [pH] 5.0 - 8.0 pH [facility] Protein (U) [Mass/Vol] 100 mg/dL Abnormal Negative [facility] RBC LM.HPF (Urine sed) [#/Area] 26-50 Abnormal [facility] Specific gravity (U) [Rel density] 1.013 1.005 - 1.030 [facility] Urobilinogen (U) [Mass/Vol] Normal Normal (0-1) mg/dL [facility] WBC LM.HPF (Urine sed) [#/Area] 6-10 Abnormal [facility] Basophil percentageOrdered B y: Jraed Guzman on 01-20-2024 Chloride [Moles/Vol] 104 mmol/L 98-107 [facility] Glucose [Mass/Vol] 159 mg/dL 74-106 [facility] Comment on above: Fasting Glucose resu lt greater than or equal to 126 mg/dL suggests DIABETES MELLITUS per A.D.A. criteria. Hemoglobin (Bld) [Mass/Vol] 9.6 g/dL 12.0-15.0 [facility] Potassium [Moles/Vol] 4.2 mmol/L 3.5-5.1 [facility] Sodium [Moles/Vol] 137 mmol/L 136-145 [facility] WBC (Bld) [#/Vol] 7.7 10*3/uL 4.4-11.0 [facility] Determination of erythrocyte mean corpuscular volume (MCV)Ordered By: Jared Guzman on 01-20-2024 MCV (RBC) [Entitic vol] 88.3 fL 81-99 [facility] Erythrocyte distribution wid th ratioOrdered By: Jared Guzman on 01-20-2024 Erythrocyte distribution width (RBC) [Ratio] 14.5 % 11.6-14.6 [facility] Erythrocyte distribution wid th standard deviationOrdered By: Jared Guzman on 01-20-2024 Erythrocyte distribution width (RBC) [Entitic vol] 46.4 fL 35.1-43.9 [facility] Hematocrit Auto (Bld) [Volum e fraction]Ordered By: Jared Guzman on 01-20-2024 Hematocrit (Bld) [Volume fraction] 30.9 % 37-47 [facility] - Chemistry and C hemistry - challengeOrdered By: Jared Guzman on 01-20-2024 CO2 [Moles/Vol] 26.0 mmol/L 21.0-32.0 [facility] Urea nitrogen/Creatinine [Mass ratio] 17.5 mg/mg 10-20 [facility] - Hematology and Cell countsOrdered By: Jared Guzman on 01-20-2024 MCH (RBC) [Entitic mass] 27.4 pg 27.0-32.0 [facility] MCHC (RBC) [Mass/Vol] 31.1 g/dL 32-36 [facility] Platelet mean volume (Bld) [Entitic vol] 10.0 fL 6.2-12.0 [facility] Platelets (Bld) [#/Vol] 411 10*3/uL 150-450 [facility] No Panel InformationOrdered By: Jared Guzman on 01-20-2024 Estimated GFR (MDRD) Amer 95 mL/min >60 [facility] Comment on above: GFR Calc Estimated GFR (MDRD) Non-Af Amer 78 mL/min >60 [facility] Comment on above: Non- GFR Calc RBC Auto (Bld) [#/Vol]Ordere d By: Jared Guzman on 01-20-2024 RBC (Bld) [#/Vol] 3.50 10*6/uL 4.2-5.4 [facility] Serum or plasma calcium mauricio urement (mass/volume)Ordered By: Jared Guzman on 01-20-2024 Calcium [Mass/Vol] 8.8 mg/dL 8.5-10.1 [facility] Serum or plasma creatinine m easurement (mass/volume)Ordered By: Jared Guzman on 01-20-2024 Creatinine [Mass/Vol] 0.80 mg/dL 0.55-1.02 [facility] Comment on above: The validity of the calculated GFR & GFRAA in patients over 70 years has not been determined. Clinical correlation is essential. Serum or plasma urea nitroge n measurement (mass/volume)Ordered By: Jared Guzman on 01-20-2024 Urea nitrogen [Mass/Vol] 14 mg/dL 7-18 [facility] Thin prep Papanicolaou smear with manual screeningOrdered By: Jared Guzman on 01-20-2024 Thin prep Papanicolaou smear with manual screening 7 5-15 [facility] Basophil percentageOrdered B y: Jared Guzman on 01-17-2024 Bilirubin [Mass/Vol] 0.50 mg/dL 0.20-1.00 [facility] Comment on above: For patients on eltr ombopag therapy, use of Dimension [place] TBIL is not recommended. Chloride [Moles/Vol] 102 mmol/L 98-107 [facility] Glucose [Mass/Vol] 325 mg/dL 74-106 [facility] Comment on above: Glucose result great er than or equal to 200 mg/dLsuggests DIABETES MELLITUS per A.D.A. criteria. Hemoglobin (Bld) [Mass/Vol] 9.7 g/dL 12.0-15.0 [facility] Potassium [Moles/Vol] 4.4 mmol/L 3.5-5.1 [facility] Protein [Mass/Vol] 6.2 g/dL 6.4-8.2 [facility] Sodium [Moles/Vol] 134 mmol/L 136-145 [facility] WBC (Bld) [#/Vol] 7.1 10*3/uL 4.4-11.0 [facility] Determination of erythrocyte mean corpuscular volume (MCV)Ordered By: Jared Guzman on 01-17-2024 MCV (RBC) [Entitic vol] 88.0 fL 81-99 [facility] Erythrocyte distribution wid th ratioOrdered By: Jared Guzman on 01-17-2024 Erythrocyte distribution width (RBC) [Ratio] 14.2 % 11.6-14.6 [facility] Erythrocyte distribution wid th standard deviationOrdered By: Jared Guzman on 01-17-2024 Erythrocyte distribution width (RBC) [Entitic vol] 45.7 fL 35.1-43.9 [facility] Hematocrit Auto (Bld) [Volum e fraction]Ordered By: Jared Guzman on 01-17-2024 Hematocrit (Bld) [Volume fraction] 31.5 % 37-47 [facility] - Chemistry and C hemistry - challengeOrdered By: Jared Guzman on 01-17-2024 Albumin/Globulin [Mass ratio] 0.9 {ratio} 0.9-2.4 [facility] ALP [Catalytic activity/Vol] 142 U/L 45-117 [facility] ALT [Catalytic activity/Vol] 22 U/L 13-56 [facility] CO2 [Moles/Vol] 24.0 mmol/L 21.0-32.0 [facility] Globulin (S) [Mass/Vol] 3.3 g/dL 2.2-4.2 [facility] Urea nitrogen/Creatinine [Mass ratio] 19.2 mg/mg 10-20 [facility] - Hematology and Cell countsOrdered By: Jared Guzman on 01-17-2024 MCH (RBC) [Entitic mass] 27.1 pg 27.0-32.0 [facility] MCHC (RBC) [Mass/Vol] 30.8 g/dL 32-36 [facility] Platelet mean volume (Bld) [Entitic vol] 10.5 fL 6.2-12.0 [facility] Platelets (Bld) [#/Vol] 372 10*3/uL 150-450 [facility] No Panel InformationOrdered By: Jared Guzman on 01-17-2024 Estimated GFR (MDRD) Amer 85 mL/min >60 [facility] Comment on above: GFR Calc Estimated GFR (MDRD) Non-Af Amer 70 mL/min >60 [facility] Comment on above: Non- GFR Calc RBC Auto (Bld) [#/Vol]Ordere d By: Jared Guzman on 01-17-2024 RBC (Bld) [#/Vol] 3.58 10*6/uL 4.2-5.4 [facility] Serum or plasma calcium mauricio urement (mass/volume)Ordered By: Jared Guzman on 01-17-2024 Calcium [Mass/Vol] 8.6 mg/dL 8.5-10.1 [facility] Serum or plasma creatinine m easurement (mass/volume)Ordered By: Jared Guzman on 01-17-2024 Creatinine [Mass/Vol] 0.88 mg/dL 0.55-1.02 [facility] Comment on above: The validity of the calculated GFR & GFRAA in patients over 70 years has not been determined. Clinical correlation is essential. Serum or plasma urea nitroge n measurement (mass/volume)Ordered By: Jared Guzman on 01-17-2024 Urea nitrogen [Mass/Vol] 17 mg/dL 7-18 [facility] Thin prep Papanicolaou smear with manual screeningOrdered By: Jared Guzman on 01-17-2024 Thin prep Papanicolaou smear with manual screening 2.9 g/dL 3.2-5.0 [facility] Thin prep Papanicolaou smear with manual screening 13 U/L 15-37 [facility] Thin prep Papanicolaou smear with manual screening 8 5-15 [facility] Whole blood hemoglobin A1c/t otal hemoglobin ratio (mass fraction)Ordered By: Jared Guzman on 01-17-2024 HbA1c (Bld) [Mass fraction] 8.1 % 3.8-5.6 [facility] Comment on above: Normal < 5.7 % Predi abetic 5.7 - 6.4 % Diabetic >or= 6.5 % Please note range changes. Basophil percentageOrdered B y: Jared Guzman on 01-13-2024 Chloride [Moles/Vol] 107 mmol/L 98-107 [facility] Cholesterol [Mass/Vol] 147 mg/dL <200 [facility] Comment on above: <200 mg/dL Desirable 200-240 mg/dL Borderline >240 mg/dL High Risk Glucose [Mass/Vol] 72 mg/dL 74-106 [facility] Hemoglobin (Bld) [Mass/Vol] 9.4 g/dL 12.0-15.0 [facility] Potassium [Moles/Vol] 3.9 mmol/L 3.5-5.1 [facility] Sodium [Moles/Vol] 141 mmol/L 136-145 [facility] Triglyceride [Mass/Vol] 137 mg/dL <199 [facility] Comment on above: The drugs N-Acetylcy steine and Metamizole may falsely depress this assay.Serum Triglycerides Reference Interval Normal <150 mg/dL Borderline high 150 - 199 mg/dL High 200 - 499 mg/dL Very High > or = 500 mg/dL WBC (Bld) [#/Vol] 7.1 10*3/uL 4.4-11.0 [facility] Determination of erythrocyte mean corpuscular volume (MCV)Ordered By: Jared Guzman on 01-13-2024 MCV (RBC) [Entitic vol] 87.4 fL 81-99 [facility] Erythrocyte distribution wid th ratioOrdered By: Jared Guzman on 01-13-2024 Erythrocyte distribution width (RBC) [Ratio] 14.6 % 11.6-14.6 [facility] Erythrocyte distribution wid th standard deviationOrdered By: Jared Guzman on 01-13-2024 Erythrocyte distribution width (RBC) [Entitic vol] 46.7 fL 35.1-43.9 [facility] Hematocrit Auto (Bld) [Volum e fraction]Ordered By: Jared Guzman on 01-13-2024 Hematocrit (Bld) [Volume fraction] 29.9 % 37-47 [facility] Laboratory - Chemistry and C hemistry - challengeOrdered By: Jared Guzman on 01-13-2024 Cholesterol in HDL [Mass/Vol] 37 mg/dL >40 [facility] Comment on above: The drugs N-Acetylcy steine and Metamizole may falsely depress this assay. Reference Range HDL <40 mg/dL Low HDL Cholesterol HDL >or= 60 mg/dL High HDL Cholesterol Cholesterol in LDL [Mass/Vol] 83 mg/dL 0-130 [facility] CO2 [Moles/Vol] 26.0 mmol/L 21.0-32.0 [facility] Urea nitrogen/Creatinine [Mass ratio] 30.8 mg/mg 10-20 [facility] Laboratory - Hematology and Cell countsOrdered By: Jared Guzman on 01-13-2024 MCH (RBC) [Entitic mass] 27.5 pg 27.0-32.0 [facility] MCHC (RBC) [Mass/Vol] 31.4 g/dL 32-36 [facility] Platelet mean volume (Bld) [Entitic vol] 9.8 fL 6.2-12.0 [facility] Platelets (Bld) [#/Vol] 380 10*3/uL 150-450 [facility] No Panel InformationOrdered By: Jared Guzman on 01-13-2024 Estimated GFR (MDRD) Amer 129 mL/min >60 [facility] Comment on above: GFR Calc Estimated GFR (MDRD) Non-Af Amer 106 mL/min >60 [facility] Comment on above: Non- GFR Calc VLDL Cholesterol 27 mg/dL 5-40 [facility] RBC Auto (Bld) [#/Vol]Ordere d By: Jared Guzman on 01-13-2024 RBC (Bld) [#/Vol] 3.42 10*6/uL 4.2-5.4 [facility] Serum or plasma calcium mauricio urement (mass/volume)Ordered By: Jared Guzman on 01-13-2024 Calcium [Mass/Vol] 8.7 mg/dL 8.5-10.1 [facility] Serum or plasma creatinine m easurement (mass/volume)Ordered By: Jared Guzman on 01-13-2024 Creatinine [Mass/Vol] 0.62 mg/dL 0.55-1.02 [facility] Comment on above: The validity of the calculated GFR & GFRAA in patients over 70 years has not been determined. Clinical correlation is essential. Serum or plasma urea nitroge n measurement (mass/volume)Ordered By: Jared Guzman on 01-13-2024 Urea nitrogen [Mass/Vol] 19 mg/dL 7-18 [facility] Thin prep Papanicolaou smear with manual screeningOrdered By: Jared Guzman on 01-13-2024 Thin prep Papanicolaou smear with manual screening 8 5-15 [facility] Basophil percentageOrdered B y: Jared Guzman on 12-31-2023 Chloride [Moles/Vol] 101 mmol/L 98-107 [facility] Glucose [Mass/Vol] 87 mg/dL 74-106 [facility] Hemoglobin (Bld) [Mass/Vol] 10.1 g/dL 12.0-15.0 [facility] Potassium [Moles/Vol] 4.8 mmol/L 3.5-5.1 [facility] Sodium [Moles/Vol] 133 mmol/L 136-145 [facility] WBC (Bld) [#/Vol] 11.6 10*3/uL 4.4-11.0 [facility] Determination of erythrocyte mean corpuscular volume (MCV)Ordered By: Jared Guzman on 12-31-2023 MCV (RBC) [Entitic vol] 87.8 fL 81-99 [facility] Erythrocyte distribution wid th ratioOrdered By: Jared Guzman on 12-31-2023 Erythrocyte distribution width (RBC) [Ratio] 14.1 % 11.6-14.6 [facility] Erythrocyte distribution wid th standard deviationOrdered By: Jared Guzman on 12-31-2023 Erythrocyte distribution width (RBC) [Entitic vol] 45.6 fL 35.1-43.9 [facility] Hematocrit Auto (Bld) [Volum e fraction]Ordered By: Jared Guzman on 12-31-2023 Hematocrit (Bld) [Volume fraction] 32.5 % 37-47 [facility] Laboratory - Chemistry and C hemistry - challengeOrdered By: Jared Guzman on 12-31-2023 CO2 [Moles/Vol] 24.0 mmol/L 21.0-32.0 [facility] Urea nitrogen/Creatinine [Mass ratio] 12.1 mg/mg 10-20 [facility] Laboratory - Hematology and Cell countsOrdered By: Jared Guzman on 12-31-2023 MCH (RBC) [Entitic mass] 27.3 pg 27.0-32.0 [facility] MCHC (RBC) [Mass/Vol] 31.1 g/dL 32-36 [facility] Platelet mean volume (Bld) [Entitic vol] 10.1 fL 6.2-12.0 [facility] Platelets (Bld) [#/Vol] 413 10*3/uL 150-450 [facility] No Panel InformationOrdered By: Jared Guzman on 12-31-2023 Estimated GFR (MDRD) Amer 16 mL/min >60 [facility] Comment on above: GFR Calc Estimated GFR (MDRD) Non-Af Amer 13 mL/min >60 [facility] Comment on above: Non- GFR Calc RBC Auto (Bld) [#/Vol]Ordere d By: Jared Guzman on 12-31-2023 RBC (Bld) [#/Vol] 3.70 10*6/uL 4.2-5.4 [facility] Serum or plasma calcium mauricio urement (mass/volume)Ordered By: Jared Guzman on 12-31-2023 Calcium [Mass/Vol] 8.9 mg/dL 8.5-10.1 [facility] Serum or plasma creatinine m easurement (mass/volume)Ordered By: Jared Guzman on 12-31-2023 Creatinine [Mass/Vol] 3.80 mg/dL 0.55-1.02 [facility] Comment on above: The validity of the calculated GFR & GFRAA in patients over 70 years has not been determined. Clinical correlation is essential. Serum or plasma urea nitroge n measurement (mass/volume)Ordered By: Jared Guzman on 12-31-2023 Urea nitrogen [Mass/Vol] 46 mg/dL 7-18 [facility] Thin prep Papanicolaou smear with manual screeningOrdered By: Jared Guzman on 12-31-2023 Thin prep Papanicolaou smear with manual screening 8 5-15 [facility] Basophil percentageOrdered B y: Jared Guzman on 12-30-2023 Chloride [Moles/Vol] 103 mmol/L 98-107 [facility] Glucose [Mass/Vol] 116 mg/dL 74-106 [facility] Comment on above: Fasting Glucose resu lt from 100 to 125 mg/dL suggests IMPAIRED HOMEOSTASIS per A.D.A. criteria. Hemoglobin (Bld) [Mass/Vol] 10.6 g/dL 12.0-15.0 [facility] Potassium [Moles/Vol] 4.4 mmol/L 3.5-5.1 [facility] Sodium [Moles/Vol] 133 mmol/L 136-145 [facility] WBC (Bld) [#/Vol] 13.1 10*3/uL 4.4-11.0 [facility] Determination of erythrocyte mean corpuscular volume (MCV)Ordered By: Jared Guzman on 12-30-2023 MCV (RBC) [Entitic vol] 86.8 fL 81-99 [facility] Erythrocyte distribution wid th ratioOrdered By: Jared Guzman on 12-30-2023 Erythrocyte distribution width (RBC) [Ratio] 13.6 % 11.6-14.6 [facility] Erythrocyte distribution wid th standard deviationOrdered By: Jared Guzman on 12-30-2023 Erythrocyte distribution width (RBC) [Entitic vol] 43.0 fL 35.1-43.9 [facility] Hematocrit Auto (Bld) [Volum e fraction]Ordered By: Jared Guzman on 12-30-2023 Hematocrit (Bld) [Volume fraction] 34.2 % 37-47 [facility] Laboratory - Chemistry and C hemistry - challengeOrdered By: Jared Guzman on 12-30-2023 CO2 [Moles/Vol] 24.0 mmol/L 21.0-32.0 [facility] Urea nitrogen/Creatinine [Mass ratio] 19.3 mg/mg 10-20 [facility] Laboratory - Hematology and Cell countsOrdered By: Jared Guzman on 12-30-2023 MCH (RBC) [Entitic mass] 26.9 pg 27.0-32.0 [facility] MCHC (RBC) [Mass/Vol] 31.0 g/dL 32-36 [facility] Platelet mean volume (Bld) [Entitic vol] 10.3 fL 6.2-12.0 [facility] Platelets (Bld) [#/Vol] 434 10*3/uL 150-450 [facility] No Panel InformationOrdered By: Jared Guzman on 12-30-2023 Estimated GFR (MDRD) Amer 42 mL/min >60 [facility] Comment on above: GFR Calc Estimated GFR (MDRD) Non-Af Amer 35 mL/min >60 [facility] Comment on above: Non- GFR Calc RBC Auto (Bld) [#/Vol]Ordere d By: Jared Guzman on 12-30-2023 RBC (Bld) [#/Vol] 3.94 10*6/uL 4.2-5.4 [facility] Serum or plasma calcium mauricio urement (mass/volume)Ordered By: Jared Guzman on 12-30-2023 Calcium [Mass/Vol] 9.4 mg/dL 8.5-10.1 [facility] Serum or plasma creatinine m easurement (mass/volume)Ordered By: Jared Guzman on 12-30-2023 Creatinine [Mass/Vol] 1.61 mg/dL 0.55-1.02 [facility] Comment on above: The validity of the calculated GFR & GFRAA in patients over 70 years has not been determined. Clinical correlation is essential. Serum or plasma urea nitroge n measurement (mass/volume)Ordered By: Jared Guzman on 12-30-2023 Urea nitrogen [Mass/Vol] 31 mg/dL 7-18 [facility] Thin prep Papanicolaou smear with manual screeningOrdered By: Jared Guzman on 12-30-2023 Thin prep Papanicolaou smear with manual screening 6 5-15 [facility] Basic metabolic 1998 panelon 12-29-2023 Anion gap [Moles/Vol] 8 mmol/L 3 - 13 mmol/L [facility] Calcium [Mass/Vol] 9.2 mg/dL 8.4 - 10. 4 mg/dL [facility] Chloride [Moles/Vol] 99 mmol/L 98 - 10 7 mmol/L [facility] CO2 [Moles/Vol] 21 mmol/L Low 22 - 30 mmol/L [facility] Creatinine [Mass/Vol] 0.70 mg/dL Male: 0.66-1.25 mg/dL; Female: 0.52-1.04 mg/dL [facility] GFR/1.73 sq M.predicted MDRD (S/P/Bld) [Vol rate/Area] - [facility] Comment on above: Calculation based on the Chronic Kidney Disease Epidemiology Collaboration (CKD-EPI) equation refit without adjustment for race Glucose [Mass/Vol] 341 mg/dL High 70 - 100 mg/dL [facility] Interpretation and review of laboratory results Abnormal [facility] Potassium [Moles/Vol] 5.3 mmol/L High 3.5 - 5.1 mmol/L [facility] Sodium [Moles/Vol] 128 mmol/L Low 135 - 145 mmol/L [facility] Urea nitrogen [Mass/Vol] 28 mg/dL Male: 9-20 mg/dL; Female: 7-17 mg/dL [facility] Basic metabolic 1998 panelOr dered By: Abner Vieyra on 12-29-2023 Anion gap [Moles/Vol] 7 mmol/L 3 - 13 mmol/L [facility] Calcium [Mass/Vol] 9.2 mg/dL 8.4 - 10. 4 mg/dL [facility] Chloride [Moles/Vol] 99 mmol/L 98 - 10 7 mmol/L [facility] CO2 [Moles/Vol] 23 mmol/L 22 - 30 mmol/L [facility] Creatinine [Mass/Vol] 0.79 mg/dL Male: 0.66-1.25 mg/dL; Female: 0.52-1.04 mg/dL [facility] GFR/1.73 sq M.predicted MDRD (S/P/Bld) [Vol rate/Area] 87.4 mL/min/{1.73_m2} - [facility] Comment on above: Calculation based on the Chronic Kidney Disease Epidemiology Collaboration (CKD-EPI) equation refit without adjustment for race Glucose [Mass/Vol] 284 mg/dL High 70 - 100 mg/dL [facility] Interpretation and review of laboratory results Abnormal [facility] Potassium [Moles/Vol] 5.7 mmol/L High 3.5 - 5.1 mmol/L [facility] Sodium [Moles/Vol] 129 mmol/L Low 135 - 145 mmol/L [facility] Urea nitrogen [Mass/Vol] 36 mg/dL Male: 9-20 mg/dL; Female: 7-17 mg/dL [facility] CBC W Auto Differential pane l (Bld)Ordered By: Laney Rader on 12-29-2023 Basophils (Bld) [#/Vol] 0.1 10*3/uL 0.0 - 0.2 10*3/uL [facility] Basophils/100 WBC (Bld) 0.8 % 0.0 - 2.0 % [facility] Eosinophils (Bld) [#/Vol] 0.1 10*3/uL 0.0 - 0.5 10*3/uL [facility] Eosinophils/100 WBC (Bld) 0.7 % Low 1.0 - 6.0 % [facility] Erythrocyte distribution width (RBC) [Ratio] 14.5 % 11.5 - 14.5 % [facility] Hematocrit (Bld) [Volume fraction] 35.9 % Male: 40.0-52.0 %; Female: 35.0-47.0 % [facility] Hemoglobin (Bld) [Mass/Vol] 11.8 g/dL 11.7 - 18.0 g/dL [facility] Interpretation and review of laboratory results Abnormal [facility] Lymphocytes (Bld) [#/Vol] 1.6 10*3/uL 1.0 - 4.3 10*3/uL [facility] Lymphocytes/100 WBC (Bld) 12.3 % Low 20.0 - 40.0 % [facility] MCH (RBC) [Entitic mass] 27.4 pg 26.0 - 34.0 pg [facility] MCHC (RBC) [Mass/Vol] 32.9 % 32.0 - 36.0 % [facility] MCV (RBC) [Entitic vol] 83.3 fL 80.0 - 98.0 fL [facility] Monocytes (Bld) [#/Vol] 0.6 10*3/uL 0.0 - 0.8 10*3/uL [facility] Monocytes/100 WBC (Bld) 4.9 % 2.0 - 10.0 % [facility] Neutrophils (Bld) [#/Vol] 10.4 10*3/uL High 1.8 - 7.0 10*3/uL [facility] Neutrophils/100 WBC (Bld) 81.3 % High 40.0 - 80.0 % [facility] Nucleated RBC/100 WBC (Bld) [Ratio] 0.0 % [facility] Platelet mean volume (Bld) [Entitic vol] 7.9 fL 7.4 - 12.4 fL [facility] Platelets (Bld) [#/Vol] 388 10*3/uL 140 - 440 10*3/uL [facility] RBC (Bld) [#/Vol] 4.31 10*6/uL Male: 4.40-5.90; Female: 3.80-5.20 [facility] WBC (Bld) [#/Vol] 12.8 10*3/uL High 3.6 - 10.7 10*3/uL [facility] Laboratory - Chemistry and C hemistry - challengeon 12-29-2023 Glucose [Mass/Vol] 319 mg/dL High 70 - 100 mg/dL [facility] Glucose [Mass/Vol] 346 mg/dL High 70 - 100 mg/dL [facility] Glucose [Mass/Vol] 279 mg/dL High 70 - 100 mg/dL [facility] Beta hydroxybutyrate [Mass/Vol] 6.84 mg/dL High 0.20 - 2.81 mg/dL [facility] No Panel Informationon 12-29 P Lynn 40 degrees [facility] NE Interval 168 ms [facility] QRS Lynn -37 degrees [facility] QRSD Interval 117 ms [facility] QT Interval 414 ms [facility] QTC Interval 479 ms [facility] T Wave Lynn 23 degrees [facility] Sinus rhythm Nonspecific IVCD with LAD Left ventricular hypertrophy Electronically Signed On 12-29-2023 06:52:01 EST by Edwin Bustos CV Edwin Cook MD - 12/29/2023 IMPRESSION: Sinus rhythm Nonspecific IVCD with LAD Left ventricular hypertrophy Electronically Signed On 12-29-2023 06:52:01 EST by Edwin Bustos [facility] Interpretation and review of laboratory results Abnormal [facility] Performed by: [facility], [address] [place], [place] [id number] CLIA ID: [id number] [facility] Interpretation and review of laboratory results Abnormal [facility] Performed by: [facility], [address] [place] [id number] CLIA ID: [id number] [facility] Interpretation and review of laboratory results Abnormal [facility] Performed by: [facility], [address] [place] [address], [place] [address] CLIA ID: [id number] [facility] Interpretation and review of laboratory results Abnormal [facility] Radiology Study observation (narrative) [facility] Radiology Study observation (narrative) [facility] Radiology Study observation (narrative) [facility] Vital signson 12-29-2023 Heart rate 80 /min bpm [facility] Stomach Views for gastric emptying solid phase W radionuclide Jacob 12-23-2023 Abnormally delayed gastric emptying following solid meal. Report Dictated on Electronically Signed By: Edwin Paz MD Electronically Signed Date/Time: 12/23/2023 12:06 PM EST [facility] Patient Name: WILL ALVARADO : [...] ingestion is between 19 and 52 percent. [facility] Edwin Paz MD - 12/23/2023 Patient [...] Electronically Signed Date/Time: 12/23/2023 12:06 PM EST [facility] Radiology Study observation (narrative) [facility] Stomach Views for gastric emptying solid phase W radionuclide POOrdered By: Edwin Paz on 12-23-2023 [facility] Basophil percentageOrdered B y: Jared Guzman on 12-22-2023 Chloride [Moles/Vol] 105 mmol/L 98-107 [facility] Glucose [Mass/Vol] 129 mg/dL 74-106 [facility] Comment on above: Fasting Glucose resu lt greater than or equal to 126 mg/dL suggests DIABETES MELLITUS per A.D.A. criteria. Hemoglobin (Bld) [Mass/Vol] 10.2 g/dL 12.0-15.0 [facility] Potassium [Moles/Vol] 4.8 mmol/L 3.5-5.1 [facility] Sodium [Moles/Vol] 136 mmol/L 136-145 [facility] WBC (Bld) [#/Vol] 9.4 10*3/uL 4.4-11.0 [facility] Determination of erythrocyte mean corpuscular volume (MCV)Ordered By: Jared Guzman on 12-22-2023 MCV (RBC) [Entitic vol] 85.8 fL 81-99 [facility] Erythrocyte distribution wid th ratioOrdered By: Jared Guzman on 12-22-2023 Erythrocyte distribution width (RBC) [Ratio] 13.6 % 11.6-14.6 [facility] Erythrocyte distribution wid th standard deviationOrdered By: Jared Guzman on 12-22-2023 Erythrocyte distribution width (RBC) [Entitic vol] 42.4 fL 35.1-43.9 [facility] Hematocrit Auto (Bld) [Volum e fraction]Ordered By: Jared Guzman on 12-22-2023 Hematocrit (Bld) [Volume fraction] 32.1 % 37-47 [facility] Laboratory - Chemistry and C hemistry - challengeOrdered By: Jared Guzman on 12-22-2023 CO2 [Moles/Vol] 25.0 mmol/L 21.0-32.0 [facility] Urea nitrogen/Creatinine [Mass ratio] 37.0 mg/mg 10-20 [facility] Laboratory - Hematology and Cell countsOrdered By: Jared Guzman on 12-22-2023 MCH (RBC) [Entitic mass] 27.3 pg 27.0-32.0 [facility] MCHC (RBC) [Mass/Vol] 31.8 g/dL 32-36 [facility] Platelet mean volume (Bld) [Entitic vol] 9.9 fL 6.2-12.0 [facility] Platelets (Bld) [#/Vol] 393 10*3/uL 150-450 [facility] No Panel InformationOrdered By: Jared Guzman on 12-22-2023 Estimated GFR (MDRD) Amer 78 mL/min >60 [facility] Comment on above: GFR Calc Estimated GFR (MDRD) Non-Af Amer 65 mL/min >60 [facility] Comment on above: Non- GFR Calc RBC Auto (Bld) [#/Vol]Ordere d By: Jared Guzman on 12-22-2023 RBC (Bld) [#/Vol] 3.74 10*6/uL 4.2-5.4 [facility] Serum or plasma calcium mauricio urement (mass/volume)Ordered By: Jared Guzman on 12-22-2023 Calcium [Mass/Vol] 9.1 mg/dL 8.5-10.1 [facility] Serum or plasma creatinine m easurement (mass/volume)Ordered By: Jared Guzman on 12-22-2023 Creatinine [Mass/Vol] 0.95 mg/dL 0.55-1.02 [facility] Comment on above: The validity of the calculated GFR & GFRAA in patients over 70 years has not been determined. Clinical correlation is essential. Serum or plasma urea nitroge n measurement (mass/volume)Ordered By: Jared Guzman on 12-22-2023 Urea nitrogen [Mass/Vol] 35 mg/dL 7-18 [facility] Thin prep Papanicolaou smear with manual screeningOrdered By: Jared Guzman on 12-22-2023 Thin prep Papanicolaou smear with manual screening 6 5-15 [facility] CBC W Auto Differential pane l (Bld)Ordered By: Erickson Olmedo on 12-09-2023 Basophils (Bld) [#/Vol] 0.1 10*3/uL 0.0 - 0.2 10*3/uL [facility] Basophils/100 WBC (Bld) 0.6 % 0.0 - 2.0 % [facility] Eosinophils (Bld) [#/Vol] 0.0 10*3/uL 0.0 - 0.5 10*3/uL [facility] Eosinophils/100 WBC (Bld) 0.1 % Low 1.0 - 6.0 % [facility] Erythrocyte distribution width (RBC) [Ratio] 14.5 % 11.5 - 14.5 % [facility] Hematocrit (Bld) [Volume fraction] 36.0 % Male: 40.0-52.0 %; Female: 35.0-47.0 % [facility] Hemoglobin (Bld) [Mass/Vol] 12.1 g/dL 11.7 - 18.0 g/dL [facility] Interpretation and review of laboratory results Abnormal [facility] Lymphocytes (Bld) [#/Vol] 1.0 10*3/uL 1.0 - 4.3 10*3/uL [facility] Lymphocytes/100 WBC (Bld) 9.5 % Low 20.0 - 40.0 % [facility] MCH (RBC) [Entitic mass] 28.1 pg 26.0 - 34.0 pg [facility] MCHC (RBC) [Mass/Vol] 33.5 % 32.0 - 36.0 % [facility] MCV (RBC) [Entitic vol] 83.9 fL 80.0 - 98.0 fL [facility] Monocytes (Bld) [#/Vol] 0.5 10*3/uL 0.0 - 0.8 10*3/uL [facility] Monocytes/100 WBC (Bld) 4.8 % 2.0 - 10.0 % [facility] Neutrophils (Bld) [#/Vol] 9.1 10*3/uL High 1.8 - 7.0 10*3/uL [facility] Neutrophils/100 WBC (Bld) 85.0 % High 40.0 - 80.0 % [facility] Nucleated RBC/100 WBC (Bld) [Ratio] 0.0 % [facility] Platelet mean volume (Bld) [Entitic vol] 8.0 fL 7.4 - 12.4 fL [facility] Platelets (Bld) [#/Vol] 485 10*3/uL High 140 - 440 10*3/uL [facility] RBC (Bld) [#/Vol] 4.29 10*6/uL Male: 4.40-5.90; Female: 3.80-5.20 [facility] WBC (Bld) [#/Vol] 10.7 10*3/uL 3.6 - 10.7 10*3/uL [facility] Comprehensive metabolic 1998 panelon 12-09-2023 Albumin [Mass/Vol] 4.0 g/dL 3.5 - 5.0 g/dL [facility] ALP [Catalytic activity/Vol] 139 U/L High 38 - 126 U/L [facility] ALT [Catalytic activity/Vol] 29 U/L Male: 0-49 U/L; Female: 0-34 U/L [facility] Anion gap [Moles/Vol] 11 mmol/L 3 - 13 mmol/L [facility] AST [Catalytic activity/Vol] 25 U/L 15 - 46 U/L [facility] Bilirubin [Mass/Vol] 0.7 mg/dL 0.2 - 1 .3 mg/dL [facility] Calcium [Mass/Vol] 9.0 mg/dL 8.4 - 10. 4 mg/dL [facility] Chloride [Moles/Vol] 96 mmol/L Low 98 - 10 7 mmol/L [facility] CO2 [Moles/Vol] 24 mmol/L 22 - 30 mmol/L [facility] Creatinine [Mass/Vol] 0.76 mg/dL Male: 0.66-1.25 mg/dL; Female: 0.52-1.04 mg/dL [facility] GFR/1.73 sq M.predicted MDRD (S/P/Bld) [Vol rate/Area] - [facility] Comment on above: Calculation based on the Chronic Kidney Disease Epidemiology Collaboration (CKD-EPI) equation refit without adjustment for race Glucose [Mass/Vol] 295 mg/dL High 70 - 100 mg/dL [facility] Interpretation and review of laboratory results Abnormal [facility] Potassium [Moles/Vol] 5.0 mmol/L 3.5 - 5.1 mmol/L [facility] Protein [Mass/Vol] 7.2 g/dL 6.3 - 8.2 g/dL [facility] Sodium [Moles/Vol] 132 mmol/L Low 135 - 145 mmol/L [facility] Urea nitrogen [Mass/Vol] 26 mg/dL Male: 9-20 mg/dL; Female: 7-17 mg/dL [facility] Laboratory - Chemistry and C hemistry - challengeon 12-09-2023 Troponin I.cardiac [Mass/Vol] ng/mL [facility] - 0.034 ng/mL [facility] Troponin I.cardiac [Mass/Vol] ng/mL [facility] - 0.034 ng/mL [facility] Beta hydroxybutyrate [Mass/Vol] 5.77 mg/dL High 0.20 - 2.81 mg/dL [facility] Lactate [Moles/Vol] 1.4 mmol/L 0.7 - 2. 0 mmol/L [facility] Lipase [Catalytic activity/Vol] 41 U/L 23 - 300 U/L [facility] Magnesium [Mass/Vol] 1.6 mg/dL 1.6 - 2 .3 mg/dL [facility] Base excess Calc (BldV) [Moles/Vol] -0.6000 mmol/L -3 - 3 mmol/L [facility] CO2 (BldV) [Partial pressure] 42.1 mm[Hg] [facility] HCO3 (Bld) [Moles/Vol] 24.7 mmol/L 23.0 - 27.0 mmol/L [facility] Oxygen (BldV) [Partial pressure] 34.1 mm[Hg] mm Hg [facility] pH (BldV) 7.377 [pH] 7.330 - 7.430 pH [facility] Laboratory - Microbiology an d Antimicrobial susceptibilityon 12-09-2023 FLUAV RNA YASIR+probe Ql (Resp) Not detected Not Detected [facility] FLUBV RNA YASIR+probe Ql (Resp) Not detected Not Detected [facility] RSV RNA YASIR+probe Ql (Resp) Not detected Not Detected [facility] SARS-CoV-2 (COVID-19) RNA YASIR+probe Ql (Resp) Not detected Not Detected [facility] SARS-CoV-2 (COVID-19) RNA YASIR+probe Ql (Unsp spec) Methodology: real-time, RT-PCR The SARS-CoV-2, Flu A/B, and RSV Combo assay is intended for in vitro diagnostic use under the FDA Emergency Use Authorization (EUA). This test has not been FDA cleared or approved. In compliance with this authorization, please visit www.fda.gov/media/446065 /download or www.fda.gov/media/048924 /download to access the applicable information sheets. [facility] No Panel Informationon 12-09 Interpretation and review of laboratory results Abnormal [facility] P Lynn 35 degrees [facility] NE Interval 158 ms [facility] QRS Lynn -33 degrees [facility] QRSD Interval 114 ms [facility] QT Interval 388 ms [facility] QTC Interval 468 ms [facility] T Wave Lynn 27 degrees [facility] Caridad Evans MD - 12/09/2023 IMPRESSION: Sinus rhythm Abnormal R-wave progression, late transition Left ventricular hypertrophy No significant change compared to 08/17/2023 Electronically Signed On 12-09-2023 06:18:33 EST by Caridad Barnard [facility] Interpretation and review of laboratory results Normal [facility] Interpretation and review of laboratory results Normal [facility] FIO2 [facility] Performed by: Nati Vigil [facility], [address] [place] [id number] CLIA ID: [id number] [facility] Radiology Study observation (narrative) [facility] SARS-CoV-2, Flu A/B, and RSV Comboon 12-09-2023 Interpretation and review of laboratory results Normal [facility] Troponin I.cardiac [Mass/Vol ]on 12-09-2023 Interpretation and review of laboratory results Normal [facility] Specimen slightly hemolyzed, interpret results with caution Patients with high levels of Biotin oral intake (ie >5 mg/day) may have falsely decreased Troponin levels. [facility] Interpretation and review of laboratory results Normal [facility] Patients with high levels of Biotin oral intake (ie >5 mg/day) may have falsely decreased Troponin levels. [facility] Urinalysis complete panel (U )Ordered By: Jackson Her on 12-09-2023 Bacteria LM.HPF (Urine sed) [#/Area] Few Abnormal Negative /HPF [facility] Bilirubin Ql (U) Negative Negative mg/dL [facility] Clarity (U) Clear Clear [facility] Color (U) Light Yellow Lt. Yellow [facility] Epithelial cells.squamous LM.HPF (Urine sed) [#/Area] 0-2 [facility] Glucose Ql (U) 500 mg/dL Abnormal Normal (<70) [facility] Hemoglobin Ql (U) 0.06 mg/dL Abnormal Negative [facility] Hyaline casts Auto (Urine sed) [#/Area] 0-2 Abnormal Negative /LPF [facility] Interpretation and review of laboratory results Abnormal [facility] Ketones (U) [Mass/Vol] 10 mg/dL Abnormal Negative [facility] Leukocyte esterase Test strip Ql (U) 25 Abnormal Negative Kat/uL [facility] Mucus LM.HPF (Urine sed) [#/Area] Few Negative /LPF [facility] Nitrite Ql (U) Negative Negative [facility] Non-Squamous Epithalial Cells, Urine 0-2 Abnormal Negative /HPF [facility] pH (U) 6.0 [pH] 5.0 - 8.0 pH [facility] Protein (U) [Mass/Vol] 300 mg/dL Abnormal Negative [facility] RBC LM.HPF (Urine sed) [#/Area] 3-5 Abnormal [facility] Specific gravity (U) [Rel density] 1.021 1.005 - 1.030 [facility] Urobilinogen (U) [Mass/Vol] Normal Normal (0-1) mg/dL [facility] WBC LM.HPF (Urine sed) [#/Area] 6-10 Abnormal [facility] Vital signson 12-09-2023 Heart rate 87 /min bpm [facility] Oxygen saturation in Venous blood 64.1 % [facility] Comment on above: Performed by CLIA ID : [id number] [place], [place] ?Device: [id number] Automatic Teller Machine Servicer ID: [id number] XR Chest Single viewon 12-09 Left basilar atelect asis Report Dictated on Electronically Signed By: Sergio Muniz MD Electronically Signed Date/Time: 12/09/2023 6:11 AM [facility] Patient [...] thoracic spine, likely diffuse idiopathic skeletal hyperostosis. [facility] Sergio Muniz MD - 12/09/2023 [...] MD Electronically Signed Date/Time: 12/09/2023 6:11 AM [facility] Radiology Study observation (narrative) [employer] XR Chest Single viewOrdered By: Sergio Muniz on 12-09-2023 [employer] Work Phone: Basophil percentageOrdered B y: Jared Guzman on 11-23-2023 Chloride [Moles/Vol] 106 mmol/L 98-107 [facility] Glucose [Mass/Vol] 212 mg/dL 74-106 [facility] Comment on above: Glucose result great er than or equal to 200 mg/dLsuggests DIABETES MELLITUS per A.D.A. criteria. Hemoglobin (Bld) [Mass/Vol] 10.5 g/dL 12.0-15.0 [facility] Potassium [Moles/Vol] 5.0 mmol/L 3.5-5.1 [facility] Sodium [Moles/Vol] 136 mmol/L 136-145 [facility] WBC (Bld) [#/Vol] 7.5 10*3/uL 4.4-11.0 [facility] Determination of erythrocyte mean corpuscular volume (MCV)Ordered By: Jared Guzman on 11-23-2023 MCV (RBC) [Entitic vol] 87.7 fL 81-99 [facility] Erythrocyte distribution wid th ratioOrdered By: Jared Guzman on 11-23-2023 Erythrocyte distribution width (RBC) [Ratio] 13.7 % 11.6-14.6 [facility] Erythrocyte distribution wid th standard deviationOrdered By: Jared Guzman on 11-23-2023 Erythrocyte distribution width (RBC) [Entitic vol] 43.8 fL 35.1-43.9 [facility] Hematocrit Auto (Bld) [Volum e fraction]Ordered By: Jared Guzman on 11-23-2023 Hematocrit (Bld) [Volume fraction] 33.4 % 37-47 [facility] Iron measurement (mass/mass) Ordered By: Jared Guzman on 11-23-2023 Iron (Unsp spec) [Mass/Mass] 53 ug/dL 50-170 [facility] Laboratory - Chemistry and C hemistry - challengeOrdered By: Jared Guzman on 11-23-2023 CO2 [Moles/Vol] 24.0 mmol/L 21.0-32.0 [facility] Cobalamin (Vitamin B12) [Mass/Vol] 298 pg/mL 211-911 [facility] Ferritin [Mass/Vol] 68 ng/mL 8-252 [facility] Urea nitrogen/Creatinine [Mass ratio] 26.1 mg/mg 10-20 [facility] Laboratory - Hematology and Cell countsOrdered By: Jared Guzman on 11-23-2023 MCH (RBC) [Entitic mass] 27.6 pg 27.0-32.0 [facility] MCHC (RBC) [Mass/Vol] 31.4 g/dL 32-36 [facility] Platelets (Bld) [#/Vol] 347 10*3/uL 150-450 [facility] No Panel InformationOrdered By: Jared Guzman on 11-23-2023 Estimated GFR (MDRD) Amer 94 mL/min >60 [facility] Comment on above: GFR Calc Estimated GFR (MDRD) Non-Af Amer 78 mL/min >60 [facility] Comment on above: Non- GFR Calc Total Iron Binding Capacity 274 ug/dL 250-450 [facility] Platelet mean volume Miquel-Ec ker (Bld) [Entitic vol]Ordered By: Jared Guzman on 11-23-2023 Platelet mean volume (Bld) [Entitic vol] 10.4 fL 6.2-12.0 [facility] RBC Auto (Bld) [#/Vol]Ordere d By: Jared Guzman on 11-23-2023 RBC (Bld) [#/Vol] 3.81 10*6/uL 4.2-5.4 [facility] Serum mitochondria antibody detectionOrdered By: Jared Guzman on 11-23-2023 Mitochondria Ab Ql (S) <20.0 Units 0.0-20.0 [facility] Comment on above: Negative 0.0 - 20.0 Equivocal 20.1 - 24.9 Positive >24.9Mitochondrial (M2) Antibodies are found in 90-96% ofpatients with primary biliary cirrhosis.Performed at: [employer] [facility] [address] [id number] Director: Kb Lopez PhD, Phone: [phone] Serum or plasma IgG measurem ent (mass/volume)Ordered By: Jared Guzman on 11-23-2023 IgG [Mass/Vol] 622 mg/dL [phone] [facility] Comment on above: Performed at: [facility] [address] [id number] Director: Kb Lopez PhD, Phone: [phone] Serum or plasma bone alkalin e phosphatase/total alkaline phosphatase ratio (catalyticOrdered By: Jared Guzman on 11-23-2023 ALP Bone [Catalytic fraction] 31 % 14-68 [facility] Serum or plasma calcium mauricio urement (mass/volume)Ordered By: Jared Guzman on 11-23-2023 Calcium [Mass/Vol] 9.0 mg/dL 8.5-10.1 [facility] Serum or plasma creatinine m easurement (mass/volume)Ordered By: Jared Guzman on 11-23-2023 Creatinine [Mass/Vol] 0.80 mg/dL 0.55-1.02 [facility] Comment on above: The validity of the calculated GFR & GFRAA in patients over 70 years has not been determined. Clinical correlation is essential. Serum or plasma intestinal a lkaline phosphatase/total alkaline phosphatase ratio (catOrdered By: Jared Guzman on 11-23-2023 ALP Intest [Catalytic fraction] 12 % 0-18 [facility] Serum or plasma liver alkali ne phosphatase/total alkaline phosphatase ratio (catalytiOrdered By: Jared Guzman on 11-23-2023 ALP Liver [Catalytic fraction] 57 % 18-85 [facility] Serum or plasma urea nitroge n measurement (mass/volume)Ordered By: Jared Guzman on 11-23-2023 Urea nitrogen [Mass/Vol] 21 mg/dL 7-18 [facility] Thin prep Papanicolaou smear with manual screeningOrdered By: Jared Guzman on 11-23-2023 Thin prep Papanicolaou smear with manual screening 6 5-15 [facility] Thin prep Papanicolaou smear with manual screening 127 IU/L 44-121 [facility] CNPNon 11-22-2023 CNPN Telephone (GSTNOR) -------- WILL JACINTO ([id number]) 1965 F Date Time Provider Department 11/22/23 [...] Nurse Nabil advised lab orders faxed to [phone]. Allergies As of Date: 11/22/2023 (No Known Allergies) Date Reviewed: 11/17/2023 Reviewed by: Elda Reaves PA-C - Fully Assessed Reason for Visit: Results [95] Primary Visit Diagnosis:Anemia, unspecified type [D64.9] Other Visit Diagnosis:Elevated alkaline phosphatase level [R74.8] Order(s):ALK PHOS ISOENZYM BL [SQALKISO] Order #: [id number] FUTURE MITOCHONDRIAL M2 IGG SERUM [SQMITOS] Order #: [id number] FUTURE IRON + TIBC [SQIRON] Order #: [id number] FUTURE FERRITIN BLD [SQFERR] Order #: [id number] FUTURE VITAMIN B12 BLOOD [SQB12] Order #: [id number] FUTURE Prescriptions as of 11/22/2023 - atorvastatin [...] Status:Closed by BELIA CHACON on 11/22/23 Normal [facility] Absolute lymphocyte countOrd ered By: Jared Guzman on 11-18-2023 Lymphocytes Auto (Unsp spec) [#/Vol] 2.16 10*3/uL 0.83-4.51 [facility] Basophil percentageOrdered B y: Jared Guzman on 11-18-2023 Basophils/100 WBC (Bld) 0.8 % 0-1 [facility] Bilirubin [Mass/Vol] 0.40 mg/dL 0.20-1.00 [facility] Comment on above: For patients on eltr ombopag therapy, use of Dimension [place] TBIL is not recommended. Chloride [Moles/Vol] 104 mmol/L 98-107 [facility] Eosinophils/100 WBC (Bld) 2.3 % 0-5 [facility] Glucose [Mass/Vol] 211 mg/dL 74-106 [facility] Comment on above: Glucose result great er than or equal to 200 mg/dLsuggests DIABETES MELLITUS per A.D.A. criteria. Neutrophils (Bld) [#/Vol] 5.2 10*3/uL 2.0-7.7 [facility] Neutrophils/100 WBC (Bld) 62.4 % 47-70 [facility] Potassium [Moles/Vol] 4.9 mmol/L 3.5-5.1 [facility] Protein [Mass/Vol] 6.3 g/dL 6.4-8.2 [facility] Sodium [Moles/Vol] 136 mmol/L 136-145 [facility] WBC (Bld) [#/Vol] 8.4 10*3/uL 4.4-11.0 [facility] Blood erythrocytes count (nu mber/volume)Ordered By: Jared Guzman on 11-18-2023 RBC (Bld) [#/Vol] 3.93 10*6/uL 4.2-5.4 [facility] Blood hemoglobin measurement (mass/volume)Ordered By: Jared Guzman on 11-18-2023 Hemoglobin (Bld) [Mass/Vol] 10.7 g/dL 12.0-15.0 [facility] Blood lymphocytes/100 leukoc ytesOrdered By: Jared Guzman on 11-18-2023 Lymphocytes/100 WBC (Bld) 25.7 % 19-41 [facility] Blood monocytes/100 leukocyt esOrdered By: Jared Guzman on 11-18-2023 Monocytes/100 WBC (Bld) 7.5 % 0-10 [facility] Blood platelet mean volumeOr dered By: Jared Guzman on 11-18-2023 Platelet mean volume (Bld) [Entitic vol] 10.1 fL 6.2-12.0 [facility] Determination of erythrocyte mean corpuscular volume (MCV)Ordered By: Jared Guzman on 11-18-2023 MCV (RBC) [Entitic vol] 88.5 fL 81-99 [facility] Hematocrit Auto (Bld) [Volum e fraction]Ordered By: Jared Guzman on 11-18-2023 Hematocrit (Bld) [Volume fraction] 34.8 % 37-47 [facility] Laboratory - Chemistry and C hemistry - challengeOrdered By: Jared Guzman on 11-18-2023 ALP [Catalytic activity/Vol] 155 U/L 45-117 [facility] ALT [Catalytic activity/Vol] 30 U/L 13-56 [facility] CO2 [Moles/Vol] 24.0 mmol/L 21.0-32.0 [facility] Globulin (S) [Mass/Vol] 3.5 g/dL 2.2-4.2 [facility] Lipase [Catalytic activity/Vol] 22 U/L 13-75 [facility] Comment on above: Please note:LIPASE r evised reference range effective 23. New Lipase methodology. Expected to produce lower values than the previous assay method. NEW Reference Range: 13 - 75 U/L Urea nitrogen/Creatinine [Mass ratio] 29.0 mg/mg 10-20 [facility] Laboratory - Hematology and Cell countsOrdered By: Jared Guzman on 11-18-2023 Erythrocyte distribution width (RBC) [Entitic vol] 44.7 fL 35.1-43.9 [facility] Erythrocyte distribution width (RBC) [Ratio] 13.8 % 11.6-14.6 [facility] Immature granulocytes/100 WBC (Bld) 1.300 % 0.0-0.9 [facility] Comment on above: IG% - Immature Granu locytes (promyelocytes, myelocytes and metamyelocytes) > 1% indicates that a LEFT SHIFT is Present. MCH (RBC) [Entitic mass] 27.2 pg 27.0-32.0 [facility] Nucleated RBC/100 WBC (Bld) [Ratio] 0 % 0-5 [facility] Auto (RBC) [Mass/Vol]Or dered By: Jared Guzman on 11-18-2023 MCHC (RBC) [Mass/Vol] 30.7 g/dL 32-36 [facility] No Panel InformationOrdered By: Jared Guzman on 11-18-2023 Endomysial IgA Antibody Negative Negative [facility] Estimated GFR (MDRD) Amer 87 mL/min >60 [facility] Comment on above: GFR Calc Estimated GFR (MDRD) Non-Af Amer 72 mL/min >60 [facility] Comment on above: Non- GFR Calc Platelets bldOrdered By: Mike Guzman on 11-18-2023 Platelets (Bld) [#/Vol] 340 10*3/uL 150-450 [facility] Serum IgA measurement (units /volume)Ordered By: Jared Guzman on 11-18-2023 IgA Qn (S) 224 mg/dL 87-352 [facility] Comment on above: Performed at: [employer] [place] [id number] Director: Kb Lopez PhD, Phone: [phone] Serum or plasma albumin mauricio urement (mass/volume)Ordered By: Jared Guzman on 11-18-2023 Albumin [Mass/Vol] 2.8 g/dL 3.2-5.0 [facility] Serum or plasma albumin/glob ulin mass ratioOrdered By: Jared Guzman on 11-18-2023 Albumin/Globulin [Mass ratio] 0.8 {ratio} 0.9-2.4 [facility] Serum or plasma calcium mauricio urement (mass/volume)Ordered By: Jared Guzman on 11-18-2023 Calcium [Mass/Vol] 9.2 mg/dL 8.5-10.1 [facility] Serum or plasma creatinine m easurement (mass/volume)Ordered By: Jared Guzman on 11-18-2023 Creatinine [Mass/Vol] 0.86 mg/dL 0.55-1.02 [facility] Comment on above: The validity of the calculated GFR & GFRAA in patients over 70 years has not been determined. Clinical correlation is essential. Serum or plasma urea nitroge n measurement (mass/volume)Ordered By: Jared Guzmna on 11-18-2023 Urea nitrogen [Mass/Vol] 25 mg/dL 7-18 [facility] Serum tissue transglutaminas e IgA antibody assay (units/volume)Ordered By: Jared Guzman on 11-18-2023 tTG IgA Qn (S) <2 U/mL 0-3 [facility] Comment on above: Negative 0 - 3 Weak Positive 4 - 10 Positive >10 Tissue Transglutaminase (tTG) has been identified as the endomysial antigen. Studies have demonstr- ated that endomysial IgA antibodies have over 99% specificity for gluten sensitive enteropathy. Thin prep Papanicolaou smear with manual screeningOrdered By: Jared Guzman on 11-18-2023 Thin prep Papanicolaou smear with manual screening 11 U/L 15-37 [facility] Thin prep Papanicolaou smear with manual screening 8 5-15 [facility] CNOVon 11-17-2023 CNOV Office Visit ([facility]STNOR ) -------- WILL JACINTO ([id number]) 1965 F Date Time Provider Department 11/17/23 9:40 AM ELDA REAVES GSTNOR During your visit today, we recorded the following information about you: Pulse Blood pressure 77/minute 124/58 Elda Reaves PA-C 11/17/2023 10:00 AM Signed CHIEF COMPLAINT: Patient presents with: Nausea AND Vomiting HPI: Resident at [facility], and rehab. Will Jacinto is a 58 year old adult with PMHx positive for anxiety, bipolar, HTN, HLD, DM II who presents for Nausea AND Vomiting. On Protonix 40 mg daily. Recent [facility] admission 2/2 complications from DM, hypoglycemia, altered [...] bedtime. No (more content not included)... Normal [facility] Absolute lymphocyte countOrd ered By: Jared Guzman on 10-26-2023 Lymphocytes Auto (Unsp spec) [#/Vol] 1.95 10*3/uL 0.83-4.51 [facility] Basophil percentageOrdered B y: Jared Guzman on 10-26-2023 Basophils/100 WBC (Bld) 0.5 % 0-1 [facility] Chloride [Moles/Vol] 107 mmol/L 98-107 [facility] Eosinophils/100 WBC (Bld) 3.4 % 0-5 [facility] Glucose [Mass/Vol] 279 mg/dL 74-106 [facility] Comment on above: Glucose result great er than or equal to 200 mg/dLsuggests DIABETES MELLITUS per A.D.A. criteria. Neutrophils (Bld) [#/Vol] 3.6 10*3/uL 2.0-7.7 [facility] Neutrophils/100 WBC (Bld) 57.8 % 47-70 [facility] Potassium [Moles/Vol] 4.9 mmol/L 3.5-5.1 [facility] Sodium [Moles/Vol] 138 mmol/L 136-145 [facility] WBC (Bld) [#/Vol] 6.2 10*3/uL 4.4-11.0 [facility] Blood erythrocytes count (nu mber/volume)Ordered By: Jared Guzman on 10-26-2023 RBC (Bld) [#/Vol] 3.47 10*6/uL 4.2-5.4 [facility] Blood hemoglobin measurement (mass/volume)Ordered By: Jared Guzman on 10-26-2023 Hemoglobin (Bld) [Mass/Vol] 9.6 g/dL 12.0-15.0 [facility] Blood lymphocytes/100 leukoc ytesOrdered By: Jared Guzman on 10-26-2023 Lymphocytes/100 WBC (Bld) 31.3 % 19-41 [facility] Blood monocytes/100 leukocyt esOrdered By: Jared Guzman on 10-26-2023 Monocytes/100 WBC (Bld) 6.4 % 0-10 [facility] Blood platelet mean volumeOr dered By: Jared Guzman on 10-26-2023 Platelet mean volume (Bld) [Entitic vol] 10.3 fL 6.2-12.0 [facility] Determination of erythrocyte mean corpuscular volume (MCV)Ordered By: Jared Guzman on 10-26-2023 MCV (RBC) [Entitic vol] 89.6 fL 81-99 [facility] Hematocrit Auto (Bld) [Volum e fraction]Ordered By: Jared Guzman on 10-26-2023 Hematocrit (Bld) [Volume fraction] 31.1 % 37-47 [facility] Laboratory - Chemistry and C hemistry - challengeOrdered By: Jared Guzman on 10-26-2023 CO2 [Moles/Vol] 25.0 mmol/L 21.0-32.0 [facility] Urea nitrogen/Creatinine [Mass ratio] 26.6 mg/mg 10-20 [facility] Laboratory - Hematology and Cell countsOrdered By: Jared Guzman on 10-26-2023 Erythrocyte distribution width (RBC) [Entitic vol] 47.2 fL 35.1-43.9 [facility] Erythrocyte distribution width (RBC) [Ratio] 14.6 % 11.6-14.6 [facility] Immature granulocytes/100 WBC (Bld) 0.600 % 0.0-0.9 [facility] Comment on above: IG% - Immature Granu locytes (promyelocytes, myelocytes and metamyelocytes) > 1% indicates that a LEFT SHIFT is Present. MCH (RBC) [Entitic mass] 27.7 pg 27.0-32.0 [facility] Nucleated RBC/100 WBC (Bld) [Ratio] 0 % 0-5 [facility] MCHC Auto (RBC) [Mass/Vol]Or dered By: Jared Guzman on 10-26-2023 MCHC (RBC) [Mass/Vol] 30.9 g/dL 32-36 [facility] No Panel InformationOrdered By: Jared Guzman on 10-26-2023 Estimated GFR (MDRD) Amer 87 mL/min >60 [facility] Comment on above: GFR Calc Estimated GFR (MDRD) Non-Af Amer 72 mL/min >60 [facility] Comment on above: Non- GFR Calc Platelets bldOrdered By: Mike Guzman on 10-26-2023 Platelets (Bld) [#/Vol] 355 10*3/uL 150-450 [facility] Serum or plasma calcium mauricio urement (mass/volume)Ordered By: Jared Guzman on 10-26-2023 Calcium [Mass/Vol] 9.0 mg/dL 8.5-10.1 [facility] Serum or plasma creatinine m easurement (mass/volume)Ordered By: Jared Guzman on 10-26-2023 Creatinine [Mass/Vol] 0.87 mg/dL 0.55-1.02 [facility] Comment on above: The validity of the calculated GFR & GFRAA in patients over 70 years has not been determined. Clinical correlation is essential. Serum or plasma urea nitroge n measurement (mass/volume)Ordered By: Jared Gumzan on 10-26-2023 Urea nitrogen [Mass/Vol] 23 mg/dL 7-18 [facility] Thin prep Papanicolaou smear with manual screeningOrdered By: Jared Guzman on 10-26-2023 Thin prep Papanicolaou smear with manual screening 6 5-15 [facility] Laboratory - Chemistry and C hemistry - challengeon 10-16-2023 Glucose [Mass/Vol] 289 mg/dL High 70 - 100 mg/dL [facility] Glucose [Mass/Vol] 346 mg/dL High 70 - 100 mg/dL [facility] Glucose [Mass/Vol] 304 mg/dL High 70 - 100 mg/dL [facility] Glucose [Mass/Vol] 312 mg/dL High 70 - 100 mg/dL [facility] No Panel Informationon 10-16 Interpretation and review of laboratory results Abnormal [facility] Interpretation and review of laboratory results Abnormal [facility] Interpretation and review of laboratory results Abnormal [facility] Interpretation and review of laboratory results Abnormal [facility] Glucose (Bld) [Mass/Vol]Orde red By: Eva Dalal on 10-15-2023 Glucose [Mass/Vol] 473 mg/dL Critically high 70 - 1 00 mg/dL [facility] Interpretation and review of laboratory results Abnormal [facility] Glucose (Bld) [Mass/Vol]Orde red By: Diane Islas on 10-15-2023 Glucose [Mass/Vol] 528 mg/dL Critically high 70 - 1 00 mg/dL [facility] Interpretation and review of laboratory results Abnormal [facility] Laboratory - Chemistry and C hemistry - challengeon 10-15-2023 Glucose [Mass/Vol] 262 mg/dL High 70 - 100 mg/dL [facility] Glucose [Mass/Vol] 289 mg/dL High 70 - 100 mg/dL [facility] Glucose [Mass/Vol] mg/dL High 70 - 100 mg/dL [facility] Glucose [Mass/Vol] mg/dL High 70 - 100 mg/dL [facility] No Panel Informationon 10-15 Interpretation and review of laboratory results Abnormal [facility] Interpretation and review of laboratory results Abnormal [facility] Interpretation and review of laboratory results Abnormal [facility] Interpretation and review of laboratory results Abnormal [facility] Bacteria identified Cx Nom ( Bld)on 10-14-2023 Interpretation and review of laboratory results Normal [facility] Basic metabolic 1998 panelon 10-14-2023 Anion gap [Moles/Vol] 7 mmol/L 3 - 13 mmol/L [facility] Calcium [Mass/Vol] 8.8 mg/dL 8.4 - 10. 4 mg/dL [facility] Chloride [Moles/Vol] 102 mmol/L 98 - 10 7 mmol/L [facility] CO2 [Moles/Vol] 25 mmol/L 22 - 30 mmol/L [facility] Creatinine [Mass/Vol] 0.98 mg/dL Male: 0.66-1.25 mg/dL; Female: 0.52-1.04 mg/dL [facility] GFR/1.73 sq M.predicted MDRD (S/P/Bld) [Vol rate/Area] 67.9 mL/min/{1.73_m2} - PINF [facility] Glucose [Mass/Vol] 250 mg/dL High 70 - 100 mg/dL [facility] Interpretation and review of laboratory results Abnormal [facility] Potassium [Moles/Vol] 3.9 mmol/L 3.5 - 5.1 mmol/L [facility] Sodium [Moles/Vol] 134 mmol/L Low 135 - 145 mmol/L [facility] Urea nitrogen [Mass/Vol] 35 mg/dL Male: 9-20 mg/dL; Female: 7-17 mg/dL [facility] Laboratory - Chemistry and C hemistry - challengeon 10-14-2023 Glucose [Mass/Vol] 305 mg/dL High 70 - 100 mg/dL [facility] Glucose [Mass/Vol] 338 mg/dL High 70 - 100 mg/dL [facility] Glucose [Mass/Vol] 360 mg/dL High 70 - 100 mg/dL [facility] Glucose [Mass/Vol] 268 mg/dL High 70 - 100 mg/dL [facility] Glucose [Mass/Vol] 235 mg/dL High 70 - 100 mg/dL [facility] Laboratory - Microbiology an d Antimicrobial susceptibilityon 10-14-2023 Bacteria identified Cx Nom (Bld) No growth at 5 days [facility] No Panel Informationon 10-14 Interpretation and review of laboratory results Abnormal [facility] Interpretation and review of laboratory results Abnormal [facility] Interpretation and review of laboratory results Abnormal [facility] Interpretation and review of laboratory results Abnormal [facility] Interpretation and review of laboratory results Abnormal [facility] Basic metabolic 1998 panelon 10-13-2023 Anion gap [Moles/Vol] 10 mmol/L 3 - 13 mmol/L [facility] Calcium [Mass/Vol] 8.5 mg/dL 8.4 - 10. 4 mg/dL [facility] Chloride [Moles/Vol] 95 mmol/L Low 98 - 10 7 mmol/L [facility] CO2 [Moles/Vol] 24 mmol/L 22 - 30 mmol/L [facility] Creatinine [Mass/Vol] 1.28 mg/dL Male: 0.66-1.25 mg/dL; Female: 0.52-1.04 mg/dL [facility] GFR/1.73 sq M.predicted MDRD (S/P/Bld) [Vol rate/Area] 49.3 mL/min/{1.73_m2} Low - PINF [facility] Glucose [Mass/Vol] 383 mg/dL High 70 - 100 mg/dL [facility] Interpretation and review of laboratory results Abnormal [facility] Potassium [Moles/Vol] 3.8 mmol/L 3.5 - 5.1 mmol/L [facility] Sodium [Moles/Vol] 129 mmol/L Low 135 - 145 mmol/L [facility] Urea nitrogen [Mass/Vol] 44 mg/dL Male: 9-20 mg/dL; Female: 7-17 mg/dL [facility] CBC panel Auto (Bld)on 10-13 Erythrocyte distribution width (RBC) [Ratio] 14.7 % High 11.5 - 14.5 % [facility] Hematocrit (Bld) [Volume fraction] 31.7 % Male: 40.0-52.0 %; Female: 35.0-47.0 % [facility] Hemoglobin (Bld) [Mass/Vol] 10.5 g/dL Low 11.7 - 18.0 g/dL [facility] Interpretation and review of laboratory results Abnormal [facility] MCH (RBC) [Entitic mass] 28.1 pg 26.0 - 34.0 pg [facility] MCHC (RBC) [Mass/Vol] 33.1 % 32.0 - 36.0 % [facility] MCV (RBC) [Entitic vol] 84.9 fL 80.0 - 98.0 fL [facility] Platelet mean volume (Bld) [Entitic vol] 7.4 fL 7.4 - 12.4 fL [facility] Platelets (Bld) [#/Vol] 324 10*3/uL 140 - 440 10*3/uL [facility] RBC (Bld) [#/Vol] 3.73 10*6/uL Male: 4.40-5.90; Female: 3.80-5.20 [facility] WBC (Bld) [#/Vol] 9.1 10*3/uL 3.6 - 10.7 10*3/uL [facility] - Chemistry and C hemistry - challengeon 10-13-2023 Glucose [Mass/Vol] 232 mg/dL High 70 - 100 mg/dL [facility] Glucose [Mass/Vol] 243 mg/dL High 70 - 100 mg/dL [facility] Glucose [Mass/Vol] 241 mg/dL High 70 - 100 mg/dL [facility] Glucose [Mass/Vol] 311 mg/dL High 70 - 100 mg/dL [facility] Glucose [Mass/Vol] 446 mg/dL High 70 - 100 mg/dL [facility] Glucose [Mass/Vol] 435 mg/dL High 70 - 100 mg/dL [facility] Magnesium [Mass/Vol] 1.7 mg/dL 1.6 - 2 .3 mg/dL [facility] Magnesium [Mass/Vol]on 10-13 Interpretation and review of laboratory results Normal [facility] No Panel Informationon 10-13 Interpretation and review of laboratory results Abnormal [facility] Interpretation and review of laboratory results Abnormal [facility] Interpretation and review of laboratory results Abnormal [facility] Interpretation and review of laboratory results Abnormal [facility] Interpretation and review of laboratory results Abnormal [facility] Interpretation and review of laboratory results Abnormal [facility] Bacteria identified Cx Nom ( Bld)on 10-12-2023 Interpretation and review of laboratory results Normal [facility] Basic metabolic 1998 panelon 10-12-2023 Anion gap [Moles/Vol] 10 mmol/L 3 - 13 mmol/L [facility] Calcium [Mass/Vol] 9.4 mg/dL 8.4 - 10. 4 mg/dL [facility] Chloride [Moles/Vol] 97 mmol/L Low 98 - 10 7 mmol/L [facility] CO2 [Moles/Vol] 24 mmol/L 22 - 30 mmol/L [facility] Creatinine [Mass/Vol] 0.98 mg/dL Male: 0.66-1.25 mg/dL; Female: 0.52-1.04 mg/dL [facility] GFR/1.73 sq M.predicted MDRD (S/P/Bld) [Vol rate/Area] 67.9 mL/min/{1.73_m2} - PINF [facility] Glucose [Mass/Vol] 401 mg/dL High 70 - 100 mg/dL [facility] Interpretation and review of laboratory results Abnormal [facility] Potassium [Moles/Vol] 4.5 mmol/L 3.5 - 5.1 mmol/L [facility] Sodium [Moles/Vol] 131 mmol/L Low 135 - 145 mmol/L [facility] Urea nitrogen [Mass/Vol] 25 mg/dL Male: 9-20 mg/dL; Female: 7-17 mg/dL [facility] CBC panel Auto (Bld)Ordered By: Ioana Arriaga on 10-12-2023 Erythrocyte distribution width (RBC) [Ratio] 14.8 % High 11.5 - 14.5 % [facility] Hematocrit (Bld) [Volume fraction] 37.5 % Male: 40.0-52.0 %; Female: 35.0-47.0 % [facility] Hemoglobin (Bld) [Mass/Vol] 12.4 g/dL 11.7 - 18.0 g/dL [facility] Interpretation and review of laboratory results Abnormal [facility] MCH (RBC) [Entitic mass] 28.1 pg 26.0 - 34.0 pg [facility] MCHC (RBC) [Mass/Vol] 33.0 % 32.0 - 36.0 % [facility] MCV (RBC) [Entitic vol] 85.1 fL 80.0 - 98.0 fL [facility] Platelet mean volume (Bld) [Entitic vol] 7.5 fL 7.4 - 12.4 fL [facility] Platelets (Bld) [#/Vol] 355 10*3/uL 140 - 440 10*3/uL [facility] RBC (Bld) [#/Vol] 4.40 10*6/uL Male: 4.40-5.90; Female: 3.80-5.20 [facility] WBC (Bld) [#/Vol] 7.4 10*3/uL 3.6 - 10.7 10*3/uL [facility] Laboratory - Chemistry and C hemistry - challengeon 10-12-2023 Glucose [Mass/Vol] 359 mg/dL High 70 - 100 mg/dL [facility] Glucose [Mass/Vol] 327 mg/dL High 70 - 100 mg/dL [facility] Glucose [Mass/Vol] 364 mg/dL High 70 - 100 mg/dL [facility] Glucose [Mass/Vol] 304 mg/dL High 70 - 100 mg/dL [facility] Glucose [Mass/Vol] 411 mg/dL High 70 - 100 mg/dL [facility] Glucose [Mass/Vol] 387 mg/dL High 70 - 100 mg/dL [facility] Laboratory - Microbiology an d Antimicrobial susceptibilityon 10-12-2023 Bacteria identified Cx Nom (Bld) No growth at 5 days [facility] No Panel Informationon 10-12 Interpretation and review of laboratory results Abnormal [facility] Interpretation and review of laboratory results Abnormal [facility] Interpretation and review of laboratory results Abnormal [facility] Interpretation and review of laboratory results Abnormal [facility] Interpretation and review of laboratory results Abnormal [facility] Interpretation and review of laboratory results Abnormal [facility] XR Chest Single viewon 10-12 [facility] Radiology Study observation (narrative) [facility] XR Chest Single viewOrdered By: Alejandro Mooney on 10-12-2023 [facility] Work Phone: Bacteria identified Cx Nom ( Bld)Ordered By: Nayeli Reyna on 10-11-2023 Interpretation and review of laboratory results Abnormal [facility] CBC panel Auto (Bld)Ordered By: Alonzo Lee on 10-11-2023 Erythrocyte distribution width (RBC) [Ratio] 14.8 % High 11.5 - 14.5 % [facility] Hematocrit (Bld) [Volume fraction] 32.1 % Male: 40.0-52.0 %; Female: 35.0-47.0 % [facility] Hemoglobin (Bld) [Mass/Vol] 10.9 g/dL Low 11.7 - 18.0 g/dL [facility] Interpretation and review of laboratory results Abnormal [facility] MCH (RBC) [Entitic mass] 28.5 pg 26.0 - 34.0 pg [facility] MCHC (RBC) [Mass/Vol] 33.8 % 32.0 - 36.0 % [facility] MCV (RBC) [Entitic vol] 84.2 fL 80.0 - 98.0 fL [facility] Platelet mean volume (Bld) [Entitic vol] 7.9 fL 7.4 - 12.4 fL [facility] Platelets (Bld) [#/Vol] 347 10*3/uL 140 - 440 10*3/uL [facility] RBC (Bld) [#/Vol] 3.82 10*6/uL Male: 4.40-5.90; Female: 3.80-5.20 [facility] WBC (Bld) [#/Vol] 9.4 10*3/uL 3.6 - 10.7 10*3/uL [facility] Comprehensive metabolic 1998 panelon 10-11-2023 Albumin [Mass/Vol] 3.8 g/dL 3.5 - 5.0 g/dL [facility] ALP [Catalytic activity/Vol] 143 U/L High 38 - 126 U/L [facility] ALT [Catalytic activity/Vol] 28 U/L Male: 0-49 U/L; Female: 0-34 U/L [facility] Anion gap [Moles/Vol] 12 mmol/L 3 - 13 mmol/L [facility] AST [Catalytic activity/Vol] 20 U/L 15 - 46 U/L [facility] Bilirubin [Mass/Vol] 0.7 mg/dL 0.2 - 1 .3 mg/dL [facility] Calcium [Mass/Vol] 8.7 mg/dL 8.4 - 10. 4 mg/dL [facility] Chloride [Moles/Vol] 95 mmol/L Low 98 - 10 7 mmol/L [facility] CO2 [Moles/Vol] 22 mmol/L 22 - 30 mmol/L [facility] Creatinine [Mass/Vol] 1.30 mg/dL Male: 0.66-1.25 mg/dL; Female: 0.52-1.04 mg/dL [facility] GFR/1.73 sq M.predicted MDRD (S/P/Bld) [Vol rate/Area] 48.4 mL/min/{1.73_m2} Low - PINF [facility] Glucose [Mass/Vol] 397 mg/dL High 70 - 100 mg/dL [facility] Potassium [Moles/Vol] 4.2 mmol/L 3.5 - 5.1 mmol/L [facility] Protein [Mass/Vol] 6.5 g/dL 6.3 - 8.2 g/dL [facility] Sodium [Moles/Vol] 128 mmol/L Low 135 - 145 mmol/L [facility] Urea nitrogen [Mass/Vol] 28 mg/dL Male: 9-20 mg/dL; Female: 7-17 mg/dL [facility] Creatinine (U) [Mass/Vol]on 10-11-2023 CREATININE, URINE 10.6 mg/dL No Range [facility] Glucose (Bld) [Mass/Vol]Orde red By: Anna Figueroa on 10-11-2023 Glucose [Mass/Vol] 522 mg/dL Critically high 70 - 1 00 mg/dL [facility] Interpretation and review of laboratory results Abnormal [facility] Laboratory - Chemistry and C hemistry - challengeon 10-11-2023 Glucose [Mass/Vol] 401 mg/dL High 70 - 100 mg/dL [facility] Sodium (24H U) [Mass/Vol] 71 mmol/L 30 - 90 mmol/L [facility] Glucose [Mass/Vol] mg/dL High 70 - 100 mg/dL [facility] Glucose [Mass/Vol] mg/dL High 70 - 100 mg/dL [facility] Glucose [Mass/Vol] 447 mg/dL High 70 - 100 mg/dL [facility] Glucose [Mass/Vol] 354 mg/dL High 70 - 100 mg/dL [facility] Magnesium [Mass/Vol] 1.3 mg/dL Low 1.6 - 2 .3 mg/dL [facility] Glucose [Mass/Vol] 386 mg/dL High 70 - 100 mg/dL [facility] Laboratory - Microbiology an d Antimicrobial susceptibilityOrdered By: Nayeli Reyna on 10-11-2023 Bacteria identified Cx Nom (Bld) Acinetobacter lwoffii Critically abnormal [facility] No Panel Informationon 10-11 Interpretation and review of laboratory results Abnormal [facility] Interpretation and review of laboratory results Normal [facility] OSMOLALITY, URINE 318 [facility] Interpretation and review of laboratory results Normal [facility] Interpretation and review of laboratory results Abnormal [facility] Interpretation and review of laboratory results Abnormal [facility] Interpretation and review of laboratory results Abnormal [facility] Interpretation and review of laboratory results Abnormal [facility] Interpretation and review of laboratory results Abnormal [facility] Interpretation and review of laboratory results Abnormal [facility] Glucose (Bld) [Mass/Vol]Orde red By: Abner Vieyra on 10-10-2023 Glucose [Mass/Vol] 45 mg/dL Critically low 70 - 10 0 mg/dL [facility] Interpretation and review of laboratory results Abnormal [facility] Laboratory - Chemistry and C hemistry - challengeon 10-10-2023 Glucose [Mass/Vol] 404 mg/dL High 70 - 100 mg/dL [facility] Glucose [Mass/Vol] 405 mg/dL High 70 - 100 mg/dL [facility] Glucose [Mass/Vol] 353 mg/dL High 70 - 100 mg/dL [facility] Glucose [Mass/Vol] 253 mg/dL High 70 - 100 mg/dL [facility] Glucose [Mass/Vol] 254 mg/dL High 70 - 100 mg/dL [facility] Glucose [Mass/Vol] 258 mg/dL High 70 - 100 mg/dL [facility] Glucose [Mass/Vol] 248 mg/dL High 70 - 100 mg/dL [facility] Glucose [Mass/Vol] 101 mg/dL High 70 - 100 mg/dL [facility] Glucose [Mass/Vol] 67 mg/dL Low 70 - 100 mg/dL [facility] Glucose [Mass/Vol] mg/dL Low 70 - 100 mg/dL [facility] Glucose [Mass/Vol] mg/dL Low 70 - 100 mg/dL [facility] No Panel Informationon 10-10 Interpretation and review of laboratory results Abnormal [facility] Interpretation and review of laboratory results Abnormal [facility] Interpretation and review of laboratory results Abnormal [facility] Interpretation and review of laboratory results Abnormal [facility] Interpretation and review of laboratory results Abnormal [facility] Interpretation and review of laboratory results Abnormal [facility] Interpretation and review of laboratory results Abnormal [facility] Interpretation and review of laboratory results Abnormal [facility] Interpretation and review of laboratory results Abnormal [facility] Interpretation and review of laboratory results Abnormal [facility] Interpretation and review of laboratory results Abnormal [facility] Bacteria identified Cx Nom ( U)Ordered By: Tessy Gonzalez on 10-09-2023 Interpretation and review of laboratory results Normal [facility] Basic metabolic 1998 panelon 10-09-2023 Anion gap [Moles/Vol] 9 mmol/L 3 - 13 mmol/L [facility] Calcium [Mass/Vol] 8.7 mg/dL 8.4 - 10. 4 mg/dL [facility] Chloride [Moles/Vol] 98 mmol/L 98 - 10 7 mmol/L [facility] CO2 [Moles/Vol] 23 mmol/L 22 - 30 mmol/L [facility] Creatinine [Mass/Vol] 0.76 mg/dL Male: 0.66-1.25 mg/dL; Female: 0.52-1.04 mg/dL [facility] GFR/1.73 sq M.predicted MDRD (S/P/Bld) [Vol rate/Area] - PINF [facility] Glucose [Mass/Vol] 344 mg/dL High 70 - 100 mg/dL [facility] Interpretation and review of laboratory results Abnormal [facility] Potassium [Moles/Vol] 4.5 mmol/L 3.5 - 5.1 mmol/L [facility] Sodium [Moles/Vol] 130 mmol/L Low 135 - 145 mmol/L [facility] Urea nitrogen [Mass/Vol] 23 mg/dL Male: 9-20 mg/dL; Female: 7-17 mg/dL [facility] Laboratory - Chemistry and C hemistry - challengeon 10-09-2023 Glucose [Mass/Vol] 117 mg/dL High 70 - 100 mg/dL [facility] Glucose [Mass/Vol] 82 mg/dL 70 - 100 mg/dL [facility] Glucose [Mass/Vol] 176 mg/dL High 70 - 100 mg/dL [facility] Glucose [Mass/Vol] 210 mg/dL High 70 - 100 mg/dL [facility] Glucose [Mass/Vol] 207 mg/dL High 70 - 100 mg/dL [facility] Glucose [Mass/Vol] 318 mg/dL High 70 - 100 mg/dL [facility] Glucose [Mass/Vol] 377 mg/dL High 70 - 100 mg/dL [facility] Glucose [Mass/Vol] 337 mg/dL High 70 - 100 mg/dL [facility] Average glucose Estimated from glycated hemoglobin (Bld) [Mass/Vol] 174 mg/dL [facility] Laboratory - Drug toxicology on 10-09-2023 Vancomycin [Mass/Vol] 11.5 ug/mL Low 15.0 - 20.0 ug/mL [facility] Laboratory - Hematology and Cell countson 10-09-2023 HbA1c (Bld) [Mass fraction] 7.7 % High NINF - 5.7 % [facility] - Microbiology an d Antimicrobial susceptibilityOrdered By: Tessy Gonzalez on 10-09-2023 Bacteria identified Cx Nom (U) No growth (<1,000 CFU/mL) [facility] No Panel Informationon 10-09 Interpretation and review of laboratory results Abnormal [facility] Interpretation and review of laboratory results Normal [facility] Interpretation and review of laboratory results Abnormal [facility] Interpretation and review of laboratory results Abnormal [facility] Interpretation and review of laboratory results Abnormal [facility] Interpretation and review of laboratory results Abnormal [facility] Interpretation and review of laboratory results Abnormal [facility] Interpretation and review of laboratory results Abnormal [facility] Interpretation and review of laboratory results Abnormal [facility] Interpretation and review of laboratory results Abnormal [facility] Basic metabolic 1998 panelon 10-08-2023 Anion gap [Moles/Vol] 8 mmol/L 3 - 13 mmol/L [facility] Calcium [Mass/Vol] 8.1 mg/dL Low 8.4 - 10. 4 mg/dL [facility] Chloride [Moles/Vol] 100 mmol/L 98 - 10 7 mmol/L [facility] CO2 [Moles/Vol] 22 mmol/L 22 - 30 mmol/L [facility] Creatinine [Mass/Vol] 1.09 mg/dL Male: 0.66-1.25 mg/dL; Female: 0.52-1.04 mg/dL [facility] GFR/1.73 sq M.predicted MDRD (S/P/Bld) [Vol rate/Area] 59.7 mL/min/{1.73_m2} Low - PINF [facility] Glucose [Mass/Vol] 288 mg/dL High 70 - 100 mg/dL [facility] Potassium [Moles/Vol] 4.2 mmol/L 3.5 - 5.1 mmol/L [facility] Sodium [Moles/Vol] 130 mmol/L Low 135 - 145 mmol/L [facility] Urea nitrogen [Mass/Vol] 34 mg/dL Male: 9-20 mg/dL; Female: 7-17 mg/dL [facility] CBC W Auto Differential pane l (Bld)Ordered By: Sixto Yao on 10-08-2023 Basophils (Bld) [#/Vol] 0.1 10*3/uL 0.0 - 0.2 10*3/uL [facility] Basophils/100 WBC (Bld) 0.8 % 0.0 - 2.0 % [facility] Eosinophils (Bld) [#/Vol] 0.1 10*3/uL 0.0 - 0.5 10*3/uL [facility] Eosinophils/100 WBC (Bld) 0.9 % Low 1.0 - 6.0 % [facility] Erythrocyte distribution width (RBC) [Ratio] 15.7 % High 11.5 - 14.5 % [facility] Hematocrit (Bld) [Volume fraction] 31.6 % Male: 40.0-52.0 %; Female: 35.0-47.0 % [facility] Hemoglobin (Bld) [Mass/Vol] 10.6 g/dL Low 11.7 - 18.0 g/dL [facility] Interpretation and review of laboratory results Abnormal [facility] Lymphocytes (Bld) [#/Vol] 2.7 10*3/uL 1.0 - 4.3 10*3/uL [facility] Lymphocytes/100 WBC (Bld) 26.5 % 20.0 - 40.0 % [facility] MCH (RBC) [Entitic mass] 28.5 pg 26.0 - 34.0 pg [facility] MCHC (RBC) [Mass/Vol] 33.5 % 32.0 - 36.0 % [facility] MCV (RBC) [Entitic vol] 84.9 fL 80.0 - 98.0 fL [facility] Monocytes (Bld) [#/Vol] 0.7 10*3/uL 0.0 - 0.8 10*3/uL [facility] Monocytes/100 WBC (Bld) 7.3 % 2.0 - 10.0 % [facility] Neutrophils (Bld) [#/Vol] 6.5 10*3/uL 1.8 - 7.0 10*3/uL [facility] Neutrophils/100 WBC (Bld) 64.5 % 40.0 - 80.0 % [facility] Nucleated RBC/100 WBC (Bld) [Ratio] 0.1 % [facility] Platelet mean volume (Bld) [Entitic vol] 8.3 fL 7.4 - 12.4 fL [facility] Platelets (Bld) [#/Vol] 339 10*3/uL 140 - 440 10*3/uL [facility] RBC (Bld) [#/Vol] 3.72 10*6/uL Male: 4.40-5.90; Female: 3.80-5.20 [facility] WBC (Bld) [#/Vol] 10.1 10*3/uL 3.6 - 10.7 10*3/uL [facility] CT Abdomen and Pelvis W cont rast Erica 10-08-2023 [facility] Radiology Study observation (narrative) [facility] CT Abdomen and Pelvis W cont rast IVOrdered By: Bao Hill on 10-08-2023 [facility] Work Phone: Hepatic function 2000 panelo n 10-08-2023 Albumin [Mass/Vol] 3.2 g/dL Low 3.5 - 5.0 g/dL [facility] ALP [Catalytic activity/Vol] 143 U/L High 38 - 126 U/L [facility] ALT [Catalytic activity/Vol] 42 U/L Male: 0-49 U/L; Female: 0-34 U/L [facility] AST [Catalytic activity/Vol] 33 U/L 15 - 46 U/L [facility] Bilirubin [Mass/Vol] 0.9 mg/dL 0.2 - 1 .3 mg/dL [facility] Bilirubin.conjugated [Mass/Vol] 0.0 mg/dL 0.0 - 0.3 mg/dL [facility] Protein [Mass/Vol] 5.9 g/dL Low 6.3 - 8.2 g/dL [facility] Laboratory - Chemistry and C hemistry - challengeon 10-08-2023 Glucose [Mass/Vol] 373 mg/dL High 70 - 100 mg/dL [facility] Glucose [Mass/Vol] 348 mg/dL High 70 - 100 mg/dL [facility] Glucose [Mass/Vol] 386 mg/dL High 70 - 100 mg/dL [facility] Glucose [Mass/Vol] 271 mg/dL High 70 - 100 mg/dL [facility] Ammonia (P) [Moles/Vol] 29 umol/L 9 - 30 umol/L [facility] MRSA DNA YASIR+probe Ql (Nose) on 10-08-2023 Interpretation and review of laboratory results Abnormal [facility] mecA gene Detected Abnormal Not Detected [facility] Staphylococcus aureus Detected Abnormal Not Detected [facility] No Panel Informationon 10-08 Interpretation and review of laboratory results Abnormal [facility] Interpretation and review of laboratory results Abnormal [facility] Interpretation and review of laboratory results Abnormal [facility] Interpretation and review of laboratory results Abnormal [facility] Interpretation and review of laboratory results Abnormal [facility] Interpretation and review of laboratory results Normal [facility] No Panel InformationOrdered By: Memo Bergman on 10-08-2023 Targets Detected Not detected [facility] US Abdomen limitedon 023 [facility] Radiology Study observation (narrative) [facility] Abdomen limitedOrdered By : Javy Urias on 10-08-2023 [facility] Work Phone: CBC W Auto Differential pane l (Bld)Ordered By: Olamide Espino on 10-07-2023 Basophils (Bld) [#/Vol] 0.0 10*3/uL 0.0 - 0.2 10*3/uL [facility] Basophils/100 WBC (Bld) 0.2 % 0.0 - 2.0 % [facility] Eosinophils (Bld) [#/Vol] 0.0 10*3/uL 0.0 - 0.5 10*3/uL [facility] Eosinophils/100 WBC (Bld) 0.2 % Low 1.0 - 6.0 % [facility] Erythrocyte distribution width (RBC) [Ratio] 14.2 % 11.5 - 14.5 % [facility] Hematocrit (Bld) [Volume fraction] 41.5 % Male: 40.0-52.0 %; Female: 35.0-47.0 % [facility] Hemoglobin (Bld) [Mass/Vol] 13.2 g/dL 11.7 - 18.0 g/dL [facility] Immature granulocytes (Bld) [#/Vol] 0.1 10*3/uL High NINF - 0.0 10*3/uL [facility] Immature granulocytes/100 WBC (Bld) 0.8 % High NINF - 0.0 % [facility] Interpretation and review of laboratory results Abnormal [facility] [facility] Lymphocytes (Bld) [#/Vol] 1.0 10*3/uL 1.0 - 4.3 10*3/uL [facility] Lymphocytes/100 WBC (Bld) 7.5 % Low 20.0 - 40.0 % [facility] MCH (RBC) [Entitic mass] 27.8 pg 26.0 - 34.0 pg [facility] MCHC (RBC) [Mass/Vol] 31.8 % Low 32.0 - 36.0 % [facility] MCV (RBC) [Entitic vol] 87.4 fL 80.0 - 98.0 fL [facility] Monocytes (Bld) [#/Vol] 0.8 10*3/uL 0.0 - 0.8 10*3/uL [facility] Monocytes/100 WBC (Bld) 5.9 % 2.0 - 10.0 % [facility] Neutrophils (Bld) [#/Vol] 11.3 10*3/uL High 1.8 - 7.0 10*3/uL [facility] Neutrophils/100 WBC (Bld) 85.4 % High 40.0 - 80.0 % [facility] Platelet mean volume (Bld) [Entitic vol] 9.4 fL 7.4 - 12.4 fL [facility] Platelets (Bld) [#/Vol] 438 10*3/uL 140 - 440 10*3/uL [facility] RBC (Bld) [#/Vol] 4.75 10*6/uL Male: 4.40-5.90; Female: 3.80-5.20 [facility] WBC (Bld) [#/Vol] 13.3 10*3/uL High 3.6 - 10.7 10*3/uL [facility] CT Head WO contraston 2022 Mild parenchymal vol ume loss. No evidence of acute intracranial process. 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 Report Dictated on Electronically Signed By: Angel Randhawa MD Electronically Signed Date/Time: 10/07/2023 7:47 AM EST [facility] Patient Name: WILL ALVARADO : [...] are not adequately visualized for proper evaluation. [facility] Angel Randhawa MD - 10/07/2023 Patient [...] Electronically Signed Date/Time: 10/07/2023 7:47 AM EST [facility] RADIOLOGY SYSTEM [facility] RADIOLOGY SYSTEM [facility] Radiology Study observation (narrative) [facility] CT Head WO contrastOrdered B y: Angel Randhawa on 10-07-2023 [facility] Work Phone: Comprehensive metabolic 1998 panelon 10-07-2023 Albumin [Mass/Vol] 4.1 g/dL 3.5 - 5.0 g/dL [facility] ALP [Catalytic activity/Vol] 133 U/L High 38 - 126 U/L [facility] ALT [Catalytic activity/Vol] 46 U/L Male: 0-49 U/L; Female: 0-34 U/L [facility] Anion gap [Moles/Vol] 11 mmol/L 3 - 13 mmol/L [facility] AST [Catalytic activity/Vol] 36 U/L 15 - 46 U/L [facility] Bilirubin [Mass/Vol] 0.4 mg/dL 0.2 - 1 .3 mg/dL [facility] Calcium [Mass/Vol] 8.8 mg/dL 8.4 - 10. 4 mg/dL [facility] Chloride [Moles/Vol] 100 mmol/L 98 - 10 7 mmol/L [facility] CO2 [Moles/Vol] 27 mmol/L 22 - 30 mmol/L [facility] Creatinine [Mass/Vol] 0.74 mg/dL Male: 0.66-1.25 mg/dL; Female: 0.52-1.04 mg/dL [facility] GFR/1.73 sq M.predicted MDRD (S/P/Bld) [Vol rate/Area] - PINF [facility] Glucose [Mass/Vol] 120 mg/dL High 70 - 100 mg/dL [facility] Interpretation and review of laboratory results Abnormal [facility] Potassium [Moles/Vol] 4.4 mmol/L 3.5 - 5.1 mmol/L [facility] Protein [Mass/Vol] 7.7 g/dL 6.3 - 8.2 g/dL [facility] Sodium [Moles/Vol] 138 mmol/L 135 - 145 mmol/L [facility] Urea nitrogen [Mass/Vol] 20 mg/dL Male: 9-20 mg/dL; Female: 7-17 mg/dL [facility] Ethanol (Bld) [Mass/Vol]on 12-07-2022 Ethanol [Mass/Vol] g/dL 0.000 - 0.010 g/dL [facility] Laboratory - Chemistry and C hemistry - challengeon 10-07-2023 Glucose [Mass/Vol] 267 mg/dL High 70 - 100 mg/dL [facility] Procalcitonin [Mass/Vol] 0.83 ng/mL High 0.00 - 0.09 ng/mL [facility] Lipase [Catalytic activity/Vol] 34 U/L 23 - 300 U/L [facility] Glucose [Mass/Vol] 176 mg/dL High 70 - 100 mg/dL [facility] Glucose [Mass/Vol] 111 mg/dL High 70 - 100 mg/dL [facility] Glucose [Mass/Vol] 81 mg/dL 70 - 100 mg/dL [facility] Glucose [Mass/Vol] 91 mg/dL 70 - 100 mg/dL [facility] Glucose [Mass/Vol] 100 mg/dL 70 - 100 mg/dL [facility] Glucose [Mass/Vol] 129 mg/dL High 70 - 100 mg/dL [facility] Glucose [Mass/Vol] 129 mg/dL [facility] Glucose [Mass/Vol] 129 mg/dL [facility] Glucose [Mass/Vol] 129 mg/dL High 70 - 100 mg/dL [facility] Glucose [Mass/Vol] 151 mg/dL [facility] Glucose [Mass/Vol] 151 mg/dL High 70 - 100 mg/dL [facility] Lactate [Moles/Vol] 1.2 mmol/L 0.7 - 2. 0 mmol/L [facility] Glucose [Mass/Vol] 100 mg/dL 70 - 100 mg/dL [facility] Glucose [Mass/Vol] 68 mg/dL Low 70 - 100 mg/dL [facility] Laboratory - Drug toxicology Ordered By: Annie Flynn on 10-07-2023 Amphetamines Screen method >1000 ng/mL Ql (U) Negative [facility] Barbiturates Screen method >200 ng/mL Ql (U) Negative [facility] Benzodiazepines Ql (U) Negative [facility] Methadone Screen Ql (U) Negative [facility] Opiates Screen Ql (U) Negative [facility] oxyCODONE Ql (U) Negative [facility] Phencyclidine Ql (U) Negative [facility] No Panel Informationon 10-07 Interpretation and review of laboratory results Abnormal [facility] Interpretation and review of laboratory results Normal [facility] Interpretation and review of laboratory results Abnormal [facility] Interpretation and review of laboratory results Abnormal [facility] Interpretation and review of laboratory results Normal [facility] Interpretation and review of laboratory results Normal [facility] Interpretation and review of laboratory results Normal [facility] Interpretation and review of laboratory results Abnormal [facility] Interpretation and review of laboratory results Normal [facility] Interpretation and review of laboratory results Normal [facility] Interpretation and review of laboratory results Abnormal [facility] Interpretation and review of laboratory results Normal [facility] Interpretation and review of laboratory results Abnormal [facility] Interpretation and review of laboratory results Normal [facility] Interpretation and review of laboratory results Normal [facility] Interpretation and review of laboratory results Abnormal [facility] No Panel InformationOrdered By: Annie Flynn on 10-07-2023 COCAINE METAB. SCREEN Negative [facility] Procalcitonin [Mass/Vol]on 12-07-2022 Interpretation and review of laboratory results Abnormal [facility] Respiratory pathogens DNA an d RNA panel YASIR+non-probe (Nph)on 10-07-2023 Adenovirus Not detected Not Detected [facility] B. pertussis DNA YASIR+probe Ql (Unsp spec) Not detected Not Detected [facility] Bordetella parapertussis Not detected Not Detected [facility] Chlamydia pneumoniae Not detected Not Detected [facility] Coronavirus 229E Not detected Not Detected [facility] Coronavirus HKU1 Not detected Not Detected [facility] Coronavirus NL63 Not detected Not Detected [facility] Coronavirus OC43 Not detected Not Detected [facility] FLUAV RNA YASIR+non-probe Ql (Nph) Not detected Not Detected [facility] FLUBV RNA YASIR+non-probe Ql (Nph) Not detected Not Detected [facility] Human Metapneumovirus Not detected Not Detected [facility] Human Rhinovirus/Enterovirus Not detected Not Detected [facility] Interpretation and review of laboratory results Normal [facility] Mycoplasma pneumoniae Not detected Not Detected [facility] Parainfluenza 1 Not detected Not Detected [facility] Parainfluenza 2 Not detected Not Detected [facility] Parainfluenza 3 Not detected Not Detected [facility] Parainfluenza 4 Not detected Not Detected [facility] Respiratory Syncytial Virus Not detected Not Detected [facility] SARS-CoV-2 (COVID-19) RNA YASIR+non-probe Ql (Nph) Not detected Not Detected [facility] Urinalysis complete panel (U )on 10-07-2023 Bacteria LM.HPF (Urine sed) [#/Area] Negative Negative /HPF [facility] Bilirubin Ql (U) Negative Negative mg/dL [facility] Clarity (U) Clear Clear [facility] Color (U) Yellow Lt. Yellow [facility] Epithelial cells.squamous LM.HPF (Urine sed) [#/Area] Negative [facility] Glucose Ql (U) 300 mg/dL Abnormal Normal (<70) [facility] Hemoglobin Ql (U) Negative Negative mg/dL [facility] Interpretation and review of laboratory results Abnormal [facility] Ketones (U) [Mass/Vol] Negative Negat bernard mg/dL [facility] Leukocyte esterase Test strip Ql (U) Negative Negative Kat/uL [facility] Mucus LM.HPF (Urine sed) [#/Area] Few Negative /LPF [facility] Nitrite Ql (U) Negative Negative [facility] pH (U) 6.0 [pH] 5.0 - 8.0 pH [facility] Protein (U) [Mass/Vol] 300 mg/dL Abnormal Negative [facility] RBC LM.HPF (Urine sed) [#/Area] 0-2 [facility] Specific gravity (U) [Rel density] 1.023 1.005 - 1.030 [facility] Urobilinogen (U) [Mass/Vol] Normal Normal (0-1) mg/dL [facility] Volume, Urine 12 mL [facility] WBC LM.HPF (Urine sed) [#/Area] 3-5 [facility] XR Chest Single viewon 10-07 [facility] RADIOLOGY SYSTEM [facility] RADIOLOGY SYSTEM [facility] Radiology Study observation (narrative) [facility] Whole blood hemoglobin A1c/t otal hemoglobin ratio (mass fraction)Ordered By: Jared Guzman on 09-20-2023 HbA1c (Bld) [Mass fraction] 7.3 % 3.8-5.6 [facility] Comment on above: Normal < 5.7 % Predi abetic 5.7 - 6.4 % Diabetic >or= 6.5 % Please note range changes. Basic metabolic 1998 panelon 08-19-2023 Anion gap [Moles/Vol] 5 mmol/L 3 - 13 mmol/L [facility] Calcium [Mass/Vol] 8.4 mg/dL 8.4 - 10. 4 mg/dL [facility] Chloride [Moles/Vol] 99 mmol/L 98 - 10 7 mmol/L [facility] CO2 [Moles/Vol] 26 mmol/L 22 - 30 mmol/L [facility] Creatinine [Mass/Vol] 1.00 mg/dL Male: 0.66-1.25 mg/dL; Female: 0.52-1.04 mg/dL [facility] GFR/1.73 sq M.predicted MDRD (S/P/Bld) [Vol rate/Area] 66.3 mL/min/{1.73_m2} - PINF [facility] Comment on above: Calculation based on the Chronic Kidney Disease Epidemiology Collaboration (CKD-EPI) equation refit without adjustment for race Glucose [Mass/Vol] 223 mg/dL High 70 - 100 mg/dL [facility] Interpretation and review of laboratory results Abnormal [facility] Potassium [Moles/Vol] 4.4 mmol/L 3.5 - 5.1 mmol/L [facility] Sodium [Moles/Vol] 130 mmol/L Low 135 - 145 mmol/L [facility] Urea nitrogen [Mass/Vol] 23 mg/dL Male: 9-20 mg/dL; Female: 7-17 mg/dL [facility] CBC panel Auto (Bld)Ordered By: Joel Houston on 08-19-2023 Erythrocyte distribution width (RBC) [Ratio] 15.3 % High 11.5 - 14.5 % [facility] Hematocrit (Bld) [Volume fraction] 36.3 % Male: 40.0-52.0 %; Female: 35.0-47.0 % [facility] Hemoglobin (Bld) [Mass/Vol] 12.2 g/dL 11.7 - 18.0 g/dL [facility] Interpretation and review of laboratory results Abnormal [facility] MCH (RBC) [Entitic mass] 27.7 pg 26.0 - 34.0 pg [facility] MCHC (RBC) [Mass/Vol] 33.7 % 32.0 - 36.0 % [facility] MCV (RBC) [Entitic vol] 82.2 fL 80.0 - 98.0 fL [facility] Platelet mean volume (Bld) [Entitic vol] 7.8 fL 7.4 - 12.4 fL [facility] Platelets (Bld) [#/Vol] 402 10*3/uL 140 - 440 10*3/uL [facility] RBC (Bld) [#/Vol] 4.41 10*6/uL Male: 4.40-5.90; Female: 3.80-5.20 [facility] WBC (Bld) [#/Vol] 8.6 10*3/uL 3.6 - 10.7 10*3/uL [facility] Laboratory - Chemistry and C hemistry - challengeon 08-19-2023 Glucose [Mass/Vol] 196 mg/dL High 70 - 100 mg/dL [facility] Glucose [Mass/Vol] 255 mg/dL High 70 - 100 mg/dL [facility] Glucose [Mass/Vol] 236 mg/dL High 70 - 100 mg/dL [facility] No Panel Informationon 08-19 Interpretation and review of laboratory results Abnormal [facility] Performed by: [facility], [address] [facility] [address] CLIA ID: [id number] [facility] Interpretation and review of laboratory results Abnormal [facility] Performed by: [facility], [address] [facility] [address] CLIA ID: [id number] [facility] Interpretation and review of laboratory results Abnormal [facility] Performed by: [facility], [address] [place] [id number] CLIA ID: [id number] [facility] [employer] Sinus bradycardia Left bundle branch block Prolonged QT interval Compared to ECG 08/08/2023 06:58:13 Left bundle-branch block now present Electronically Signed On 08-19-2023 7:37:13 EDT by Nicolas Byrne D O - 08/19/2023 IMPRESSION: Sinus bradycardia Left bundle branch block Prolonged QT interval Compared to ECG 08/08/2023 06:58:13 Left bundle-branch block now present Electronically Signed On 08-19-2023 7:37:13 EDT by Nicolas Rose [facility] No Panel InformationOrdered By: Nicolas Rose on 08-19-2023 P Lynn 40 degrees [facility] Work Phone: NE Interval 194 ms [facility] Work Phone: QRS Lynn -30 degrees [facility] Work Phone: QRSD Interval 140 ms [facility] Work Phone: QT Interval 632 ms [facility] Work Phone: QTC Interval 563 ms [facility] Work Phone: T Wave Lynn -4 degrees [facility] Work Phone: [facility] Work Phone: Vital signsOrdered By: Harman Rose on 08-19-2023 Heart rate 48 /min bpm [facility] Work Phone: Basic metabolic 1998 panelon 08-18-2023 Anion gap [Moles/Vol] 6 mmol/L 3 - 13 mmol/L [facility] Calcium [Mass/Vol] 8.0 mg/dL Low 8.4 - 10. 4 mg/dL [facility] Chloride [Moles/Vol] 100 mmol/L 98 - 10 7 mmol/L [facility] CO2 [Moles/Vol] 24 mmol/L 22 - 30 mmol/L [facility] Creatinine [Mass/Vol] 0.76 mg/dL Male: 0.66-1.25 mg/dL; Female: 0.52-1.04 mg/dL [facility] GFR/1.73 sq M.predicted MDRD (S/P/Bld) [Vol rate/Area] - PINF [facility] Comment on above: Calculation based on the Chronic Kidney Disease Epidemiology Collaboration (CKD-EPI) equation refit without adjustment for race Glucose [Mass/Vol] 311 mg/dL High 70 - 100 mg/dL [facility] Interpretation and review of laboratory results Abnormal [facility] Potassium [Moles/Vol] 4.2 mmol/L 3.5 - 5.1 mmol/L [facility] Sodium [Moles/Vol] 130 mmol/L Low 135 - 145 mmol/L [facility] Urea nitrogen [Mass/Vol] 24 mg/dL Male: 9-20 mg/dL; Female: 7-17 mg/dL [facility] CBC W Auto Differential pane l (Bld)Ordered By: Alex Kwok on 08-18-2023 Basophils (Bld) [#/Vol] 0.1 10*3/uL 0.0 - 0.2 10*3/uL [facility] Basophils/100 WBC (Bld) 0.7 % 0.0 - 2.0 % [facility] Eosinophils (Bld) [#/Vol] 0.2 10*3/uL 0.0 - 0.5 10*3/uL [facility] Eosinophils/100 WBC (Bld) 1.2 % 1.0 - 6.0 % [facility] Erythrocyte distribution width (RBC) [Ratio] 15.2 % High 11.5 - 14.5 % [facility] Hematocrit (Bld) [Volume fraction] 36.1 % Male: 40.0-52.0 %; Female: 35.0-47.0 % [facility] Hemoglobin (Bld) [Mass/Vol] 12.2 g/dL 11.7 - 18.0 g/dL [facility] Interpretation and review of laboratory results Abnormal [facility] Lymphocytes (Bld) [#/Vol] 2.3 10*3/uL 1.0 - 4.3 10*3/uL [facility] Lymphocytes/100 WBC (Bld) 17.5 % Low 20.0 - 40.0 % [facility] MCH (RBC) [Entitic mass] 28.2 pg 26.0 - 34.0 pg [facility] MCHC (RBC) [Mass/Vol] 33.9 % 32.0 - 36.0 % [facility] MCV (RBC) [Entitic vol] 83.0 fL 80.0 - 98.0 fL [facility] Monocytes (Bld) [#/Vol] 1.2 10*3/uL High 0.0 - 0.8 10*3/uL [facility] Monocytes/100 WBC (Bld) 8.8 % 2.0 - 10.0 % [facility] Neutrophils (Bld) [#/Vol] 9.5 10*3/uL High 1.8 - 7.0 10*3/uL [facility] Neutrophils/100 WBC (Bld) 71.8 % 40.0 - 80.0 % [facility] Nucleated RBC/100 WBC (Bld) [Ratio] 0.0 % [facility] Platelet mean volume (Bld) [Entitic vol] 7.7 fL 7.4 - 12.4 fL [facility] Platelets (Bld) [#/Vol] 388 10*3/uL 140 - 440 10*3/uL [facility] RBC (Bld) [#/Vol] 4.35 10*6/uL Male: 4.40-5.90; Female: 3.80-5.20 [facility] WBC (Bld) [#/Vol] 13.2 10*3/uL High 3.6 - 10.7 10*3/uL [facility] Laboratory - Chemistry and C hemistry - challengeon 08-18-2023 Glucose [Mass/Vol] 294 mg/dL High 70 - 100 mg/dL [facility] Glucose [Mass/Vol] 339 mg/dL High 70 - 100 mg/dL [facility] Glucose [Mass/Vol] 363 mg/dL High 70 - 100 mg/dL [facility] Glucose [Mass/Vol] 398 mg/dL High 70 - 100 mg/dL [facility] No Panel Informationon 08-18 Interpretation and review of laboratory results Abnormal [facility] Performed by: [facility], [address] [place] [address] [place] [address] CLIA ID: [id number] [facility] Interpretation and review of laboratory results Abnormal [facility] Performed by: [facility], [address], [facility] [address] CLIA ID: [id number] [facility] Interpretation and review of laboratory results Abnormal [facility] Performed by: [facility], [address], [facility] [address] CLIA ID: [id number] [facility] Interpretation and review of laboratory results Abnormal [facility] Performed by: [facility], [address], [facility] [address] CLIA ID: [id number] [facility] Basophil percentageon 2022 Sodium [Moles/Vol] 132 mmol/L 136-145 [facility] Basophil percentageOrdered B y: Jared Guzman on 08-17-2023 Bilirubin [Mass/Vol] 0.60 mg/dL 0.20-1.00 [facility] Comment on above: For patients on eltr ombopag therapy, use of [employer]ension [place] TBIL is not recommended. Chloride [Moles/Vol] 100 mmol/L 98-107 [facility] Glucose [Mass/Vol] 240 mg/dL 74-106 [facility] Comment on above: Glucose result great er than or equal to 200 mg/dLsuggests DIABETES MELLITUS per A.D.A. criteria. Potassium [Moles/Vol] 4.3 mmol/L 3.5-5.1 [facility] Protein [Mass/Vol] 6.8 g/dL 6.4-8.2 [facility] WBC (Bld) [#/Vol] 9.3 10*3/uL 4.4-11.0 [facility] Blood erythrocytes count (nu mber/volume)Ordered By: Jared Guzman on 08-17-2023 RBC (Bld) [#/Vol] 4.64 10*6/uL 4.2-5.4 [facility] Blood hemoglobin measurement (mass/volume)Ordered By: Jared Guzman on 08-17-2023 Hemoglobin (Bld) [Mass/Vol] 12.4 g/dL 12.0-15.0 [facility] Blood platelet mean volumeOr dered By: Jared Guzman on 08-17-2023 Platelet mean volume (Bld) [Entitic vol] 9.8 fL 6.2-12.0 [facility] CBC W Auto Differential pane l (Bld)Ordered By: Bisi Bloom on 08-17-2023 Basophils (Bld) [#/Vol] 0.1 10*3/uL 0.0 - 0.2 10*3/uL [facility] Basophils/100 WBC (Bld) 0.8 % 0.0 - 2.0 % [facility] Eosinophils (Bld) [#/Vol] 0.1 10*3/uL 0.0 - 0.5 10*3/uL [facility] Eosinophils/100 WBC (Bld) 0.4 % Low 1.0 - 6.0 % [facility] Erythrocyte distribution width (RBC) [Ratio] 15.3 % High 11.5 - 14.5 % [facility] Hematocrit (Bld) [Volume fraction] 37.7 % Male: 40.0-52.0 %; Female: 35.0-47.0 % [facility] Hemoglobin (Bld) [Mass/Vol] 12.5 g/dL 11.7 - 18.0 g/dL [facility] Interpretation and review of laboratory results Abnormal [facility] Lymphocytes (Bld) [#/Vol] 3.6 10*3/uL 1.0 - 4.3 10*3/uL [facility] Lymphocytes/100 WBC (Bld) 24.4 % 20.0 - 40.0 % [facility] MCH (RBC) [Entitic mass] 27.2 pg 26.0 - 34.0 pg [facility] MCHC (RBC) [Mass/Vol] 33.1 % [...] (Bld) 65.9 % 40.0 - 80.0 % [facility] Nucleated RBC/100 WBC (Bld) [Ratio] 0.0 % [facility] Platelet mean volume (Bld) [Entitic vol] 7.5 fL 7.4 - 12.4 fL [facility] Platelets (Bld) [#/Vol] 468 10*3/uL High 140 - 440 10*3/uL [facility] RBC (Bld) [#/Vol] 4.57 10*6/uL Male: 4.40-5.90; Female: 3.80-5.20 [facility] WBC (Bld) [#/Vol] 14.7 10*3/uL High 3.6 - 10.7 10*3/uL [facility] Abdomen and Pelvis W cont rast [...] MD Electronically Signed Date/Time: 08/17/2023 4:21 PM [facility] Patient Name: WILL [...] and increased in size since November 2020. [facility] Milton Guy MD - 08/17/2023 [...] Electronically Signed Date/Time: 08/17/2023 4:21 PM EDT [facility] Radiology Study observation (narrative) [facility] CT Abdomen and Pelvis W cont rast IVOrdered By: Milton Guy on 08-17-2023 [facility] Work Phone: Comprehensive metabolic 1998 panelon 08-17-2023 Albumin [Mass/Vol] 4.0 g/dL 3.5 - 5.0 g/dL [facility] ALP [Catalytic activity/Vol] 136 U/L High 38 - 126 U/L [facility] ALT [Catalytic activity/Vol] 47 U/L Male: 0-49 U/L; Female: 0-34 U/L [facility] Anion gap [Moles/Vol] 4 mmol/L 3 - 13 mmol/L [facility] AST [Catalytic activity/Vol] 29 U/L 15 - 46 U/L [facility] Bilirubin [Mass/Vol] 0.5 mg/dL 0.2 - 1 .3 mg/dL [facility] Calcium [Mass/Vol] 8.8 mg/dL 8.4 - 10. 4 mg/dL [facility] Chloride [Moles/Vol] 99 mmol/L 98 - 10 7 mmol/L [facility] CO2 [Moles/Vol] 29 mmol/L 22 - 30 mmol/L [facility] Creatinine [Mass/Vol] 0.72 mg/dL Male: 0.66-1.25 mg/dL; Female: 0.52-1.04 mg/dL [facility] GFR/1.73 sq M.predicted MDRD (S/P/Bld) [Vol rate/Area] - PINF [facility] Comment on above: Calculation based on the Chronic Kidney Disease Epidemiology Collaboration (CKD-EPI) equation refit without adjustment for race Glucose [Mass/Vol] 71 mg/dL 70 - 100 mg/dL [facility] Interpretation and review of laboratory results Abnormal [facility] Potassium [Moles/Vol] 4.8 mmol/L 3.5 - 5.1 mmol/L [facility] Protein [Mass/Vol] 7.1 g/dL 6.3 - 8.2 g/dL [facility] Urea nitrogen [Mass/Vol] 17 mg/dL Male: 9-20 mg/dL; Female: 7-17 mg/dL [facility] Determination of erythrocyte mean corpuscular volume (MCV)Ordered By: Jared Guzman on 08-17-2023 MCV (RBC) [Entitic vol] 86.6 fL 81-99 [facility] Glucose (Bld) [Mass/Vol]Orde red By: Asuncion Buchanan on 08-17-2023 Glucose [Mass/Vol] 29 mg/dL Critically low 70 - 10 0 mg/dL [facility] Interpretation and review of laboratory results Abnormal [facility] Hematocrit Auto (Bld) [Volum e fraction]Ordered By: Jared Guzman on 08-17-2023 Hematocrit (Bld) [Volume fraction] 40.2 % 37-47 [facility] Laboratory - Chemistry and C hemistry - challengeon 08-17-2023 Glucose [Mass/Vol] 154 mg/dL High 70 - 100 mg/dL [facility] Glucose [Mass/Vol] 154 mg/dL [facility] Glucose [Mass/Vol] 154 mg/dL High 70 - 100 mg/dL [facility] Glucose [Mass/Vol] mg/dL Low 70 - 100 mg/dL [facility] Comment on above: Caregiver Notified; Confirmation Drawn; Lipase [Catalytic activity/Vol] 62 U/L 23 - 300 U/L [facility] Lactate [Moles/Vol] 1.1 mmol/L 0.7 - 2. 0 mmol/L [facility] Laboratory - Chemistry and C hemistry - challengeOrdered By: Jared Guzman on 08-17-2023 ALP [Catalytic activity/Vol] 156 U/L 45-117 [facility] ALT [Catalytic activity/Vol] 56 U/L 13-56 [facility] CO2 [Moles/Vol] 29.0 mmol/L 21.0-32.0 [facility] Globulin (S) [Mass/Vol] 3.7 g/dL 2.2-4.2 [facility] Urea nitrogen/Creatinine [Mass ratio] 20.6 mg/mg 10-20 [facility] Laboratory - Hematology and Cell countsOrdered By: Jared Guzman on 08-17-2023 Erythrocyte distribution width (RBC) [Entitic vol] 44.6 fL 35.1-43.9 [facility] Erythrocyte distribution width (RBC) [Ratio] 14.0 % 11.6-14.6 [facility] MCH (RBC) [Entitic mass] 26.7 pg 27.0-32.0 [facility] Lipase [Catalytic activity/V ol]on 08-17-2023 Interpretation and review of laboratory results Normal [facility] MCHC Auto (RBC) [Mass/Vol]Or dered By: Jared Guzman on 08-17-2023 MCHC (RBC) [Mass/Vol] 30.8 g/dL 32-36 [facility] No Panel Informationon 08-17 Interpretation and review of laboratory results Abnormal [facility] Performed by: [facility], [address] [place] [id number] CLIA ID: [id number] [facility] Interpretation and review of laboratory results Normal [facility] Interpretation and review of laboratory results Abnormal [facility] Performed by: [facility], [address] [facility] [address] CLIA ID: [id number] [facility] Interpretation and review of laboratory results Abnormal [facility] Performed by: [facility], [address] [facility] [address] CLIA ID: [id number] [facility] Interpretation and review of laboratory results Normal [facility] No Panel InformationOrdered By: Jared Guzman on 08-17-2023 Estimated GFR (MDRD) Amer 99 mL/min >60 [facility] Comment on above: GFR Calc Estimated GFR (MDRD) Non-Af Amer 81 mL/min >60 [facility] Comment on above: Non- GFR Calc Platelets bldOrdered By: Mike Guzman on 08-17-2023 Platelets (Bld) [#/Vol] 410 10*3/uL 150-450 [facility] Serum or plasma albumin mauricio urement (mass/volume)Ordered By: Jared Guzman on 08-17-2023 Albumin [Mass/Vol] 3.1 g/dL 3.2-5.0 [facility] Serum or plasma albumin/glob ulin mass ratioOrdered By: Jared Guzman on 08-17-2023 Albumin/Globulin [Mass ratio] 0.8 {ratio} 0.9-2.4 [facility] Serum or plasma calcium mauricio urement (mass/volume)Ordered By: Jared Guzman on 08-17-2023 Calcium [Mass/Vol] 9.1 mg/dL 8.5-10.1 [facility] Serum or plasma creatinine m easurement (mass/volume)Ordered By: Jared Guzman on 08-17-2023 Creatinine [Mass/Vol] 0.78 mg/dL 0.55-1.02 [facility] Comment on above: The validity of the calculated GFR & GFRAA in patients over 70 years has not been determined. Clinical correlation is essential. Serum or plasma urea nitroge n measurement (mass/volume)Ordered By: Jared Guzman on 08-17-2023 Urea nitrogen [Mass/Vol] 16 mg/dL 7-18 [facility] Thin prep Papanicolaou smear with manual screeningOrdered By: Jared Guzman on 08-17-2023 Thin prep Papanicolaou smear with manual screening 16 U/L 15-37 [facility] Thin prep Papanicolaou smear with manual screening 3 5-15 [facility] Urinalysis complete panel (U )Ordered By: Silvia Bone on 08-17-2023 Bacteria LM.HPF (Urine sed) [#/Area] Negative Negative /HPF [facility] Bilirubin Ql (U) Negative Negative mg/dL [facility] Clarity (U) Clear Clear [facility] Color (U) Yellow Lt. Yellow [facility] Epithelial cells.squamous LM.HPF (Urine sed) [#/Area] 0-2 [facility] Glucose Ql (U) 300 mg/dL Abnormal Normal (<70) [facility] Hemoglobin Ql (U) 0.06 mg/dL Abnormal Negative [facility] Hyaline casts Auto (Urine sed) [#/Area] 0-2 Abnormal Negative /LPF [facility] Interpretation and review of laboratory results Abnormal [facility] Ketones (U) [Mass/Vol] Negative Negat bernard mg/dL [facility] Leukocyte esterase Test strip Ql (U) Negative Negative Kat/uL [facility] Mucus LM.HPF (Urine sed) [#/Area] Few Negative /LPF [facility] Nitrite Ql (U) Negative Negative [facility] pH (U) 6.0 [pH] 5.0 - 8.0 pH [facility] Protein (U) [Mass/Vol] 300 mg/dL Abnormal Negative [facility] RBC LM.HPF (Urine sed) [#/Area] 3-5 Abnormal [facility] Specific gravity (U) [Rel density] 1.040 High 1.005 - 1.030 [facility] Urobilinogen (U) [Mass/Vol] 2 mg/dL Abnormal Normal (0-1) [facility] WBC LM.HPF (Urine sed) [#/Area] 3-5 [facility] Basic metabolic 1998 panelon 08-08-2023 Anion gap [Moles/Vol] 5 mmol/L 3 - 13 mmol/L [facility] Calcium [Mass/Vol] 8.9 mg/dL 8.4 - 10. 4 mg/dL [facility] Chloride [Moles/Vol] 97 mmol/L Low 98 - 10 7 mmol/L [facility] CO2 [Moles/Vol] 27 mmol/L 22 - 30 mmol/L [facility] Creatinine [Mass/Vol] 0.49 mg/dL Male: 0.66-1.25 mg/dL; Female: 0.52-1.04 mg/dL [facility] GFR/1.73 sq M.predicted MDRD (S/P/Bld) [Vol rate/Area] - PINF [facility] Comment on above: Calculation based on the Chronic Kidney Disease Epidemiology Collaboration (CKD-EPI) equation refit without adjustment for race Glucose [Mass/Vol] 253 mg/dL High 70 - 100 mg/dL [facility] Potassium [Moles/Vol] 5.0 mmol/L 3.5 - 5.1 mmol/L [facility] Sodium [Moles/Vol] 130 mmol/L Low 135 - 145 mmol/L [facility] Urea nitrogen [Mass/Vol] 13 mg/dL Male: 9-20 mg/dL; Female: 7-17 mg/dL [facility] Beta Hydroxybutyrateon 08-08 Beta hydroxybutyrate [Mass/Vol] 8.44 mg/dL High 0.20 - 2.81 mg/dL [facility] Interpretation and review of laboratory results Abnormal [facility] CBC panel Auto (Bld)Ordered By: Alex Kwok on 08-08-2023 Erythrocyte distribution width (RBC) [Ratio] 15.3 % High 11.5 - 14.5 % [facility] Hematocrit (Bld) [Volume fraction] 36.2 % Male: 40.0-52.0 %; Female: 35.0-47.0 % [facility] Hemoglobin (Bld) [Mass/Vol] 12.0 g/dL 11.7 - 18.0 g/dL [facility] Interpretation and review of laboratory results Abnormal [facility] MCH (RBC) [Entitic mass] 27.3 pg 26.0 - 34.0 pg [facility] MCHC (RBC) [Mass/Vol] 33.3 % 32.0 - 36.0 % [facility] MCV (RBC) [Entitic vol] 81.9 fL 80.0 - 98.0 fL [facility] Platelet mean volume (Bld) [Entitic vol] 7.6 fL 7.4 - 12.4 fL [facility] Platelets (Bld) [#/Vol] 364 10*3/uL 140 - 440 10*3/uL [facility] RBC (Bld) [#/Vol] 4.42 10*6/uL Male: 4.40-5.90; Female: 3.80-5.20 [facility] WBC (Bld) [#/Vol] 9.7 10*3/uL 3.6 - 10.7 10*3/uL [facility] CT Abdomen and Pelvis W cont [...] MD Electronically Signed Date/Time: 08/08/2023 8:43 AM [facility] Patient Name: WILL [...] acute fracture. No suspicious osseous lesions. [facility] Yvette Stringer MD - [...] Electronically Signed Date/Time: 08/08/2023 8:43 AM EDT [facility] Radiology Study observation (narrative) [facility] ECG 12 leadon 08-08-2023 Heart rate 111 /min bpm [facility] P Lynn 48 degrees [facility] NE Interval 164 ms [facility] QRS Lynn -40 degrees [facility] QRSD Interval 116 ms [facility] QT Interval 363 ms [facility] QTC Interval 494 ms [facility] T Wave [place] 54 degrees [facility] Sinus tachycardia Left anterior fascicular block Left ventricular hypertrophy Borderline prolonged QT interval Compared to ECG 06/29/2023 06:27:39 Electronically Signed On 08-08-2023 7:02:41 EDT by Gayle Trevizo CV Gayle Mercedes MD - 08/08/2023 IMPRESSION: Sinus tachycardia Left anterior fascicular block Left ventricular hypertrophy Borderline prolonged QT interval Compared to ECG 06/29/2023 06:27:39 Electronically Signed On 08-08-2023 7:02:41 EDT by Gayle Trevizo [facility] Hepatic function 2000 panelo n 08-08-2023 Albumin [Mass/Vol] 4.0 g/dL 3.5 - 5.0 g/dL [facility] ALP [Catalytic activity/Vol] 156 U/L High 38 - 126 U/L [facility] ALT [Catalytic activity/Vol] 39 U/L Male: 0-49 U/L; Female: 0-34 U/L [facility] AST [Catalytic activity/Vol] 30 U/L 15 - 46 U/L [facility] Bilirubin [Mass/Vol] 0.5 mg/dL 0.2 - 1 .3 mg/dL [facility] Bilirubin.conjugated [Mass/Vol] 0.0 mg/dL 0.0 - 0.3 mg/dL [facility] Protein [Mass/Vol] 7.3 g/dL 6.3 - 8.2 g/dL [facility] Lipaseon 08-08-2023 Lipase [Catalytic activity/Vol] 34 U/L 23 - 300 U/L [facility] Lipase [Catalytic activity/V ol]on 08-08-2023 Interpretation and review of laboratory results Normal [facility] No Panel Informationon 08-08 [facility] Interpretation and review of laboratory results Abnormal [facility] POCT glucose meteron 023 Glucose [Mass/Vol] 251 mg/dL High 70 - 100 mg/dL [facility] Interpretation and review of laboratory results Abnormal [facility] Performed by: [facility], [address] [place] [id number] CLIA ID: [id number] [facility] POCT venous blood gason Base excess Calc (BldV) [Moles/Vol] 0.0 mmol/L -3 - 3 mmol/L [facility] CO2 (BldV) [Partial pressure] 35.7 mm[Hg] Low [facility] CO2 [Moles/Vol] 24.9 mmol/L 24.0 - 28.0 mmol/L [facility] Comment on above: Performed by CLIA ID : [id number] [place], [place] ?Device: [id number] Automatic Teller Machine Servicer ID: [id number] [facility] HCO3 (Bld) [Moles/Vol] 23.8 mmol/L 23.0 - 27.0 mmol/L [facility] Interpretation and review of laboratory results Abnormal [facility] Oxygen (BldV) [Partial pressure] 40.4 mm[Hg] [facility] Oxygen saturation in Venous blood 77.5 % 60.0 - 80.0 % [facility] pH (BldV) 7.432 [pH] High 7.330 - 7.430 pH [facility] Performed by: [facility], [address] [place] [id number] CLIA ID: [id number] [facility] Troponin I.cardiac [Mass/Vol ]on 08-08-2023 Interpretation and review of laboratory results Normal [facility] Patients with high levels of Biotin oral intake (ie >5 mg/day) may have falsely decreased Troponin levels. [facility] Troponin, with Serial Reflex on 08-08-2023 Troponin I.cardiac [Mass/Vol] ng/mL NINF - 0.034 ng/mL [facility] Urinalysis complete panel (U )Ordered By: Jackson Her on 08-08-2023 Bacteria LM.HPF (Urine sed) [#/Area] Few Abnormal Negative /HPF [facility] Bilirubin Ql (U) Negative Negative mg/dL [facility] Clarity (U) Clear Clear [facility] Color (U) Light Yellow Lt. Yellow [facility] Epithelial cells.squamous LM.HPF (Urine sed) [#/Area] 0-2 [facility] Glucose Ql (U) 150 mg/dL Abnormal Normal (<70) [facility] Hemoglobin Ql (U) 0.06 mg/dL Abnormal Negative [facility] Interpretation and review of laboratory results Abnormal [facility] Ketones (U) [Mass/Vol] 10 mg/dL Abnormal Negative [facility] Leukocyte clumps LM.HPF (Urine sed) [#/Area] Rare Abnormal Negative /HPF [facility] Leukocyte esterase Test strip Ql (U) 250 Abnormal Negative Kat/uL [facility] Nitrite Ql (U) Negative Negative [facility] Non-Squamous Epithalial Cells, Urine 0-2 Abnormal Negative /HPF [facility] pH (U) 6.0 [pH] 5.0 - 8.0 pH [facility] Protein (U) [Mass/Vol] 200 mg/dL Abnormal Negative [facility] RBC LM.HPF (Urine sed) [#/Area] 3-5 Abnormal [facility] Specific gravity (U) [Rel density] High 1.005 - 1.030 [facility] Urobilinogen (U) [Mass/Vol] Normal Normal (0-1) mg/dL [facility] WBC LM.HPF (Urine sed) [#/Area] 6-10 Abnormal [facility] XR Chest Single viewon 08-08 Lungs clear with no acute cardiopulmonary disease process Report Dictated on Electronically Signed By: Chucho Stringer MD Electronically Signed Date/Time: 08/08/2023 7:16 AM [facility] Patient Name: WILL ALVARADO : [...] mediastinal contours are normal. VASCULARITY: Normal BONES:Unremarkable [facility] Yvette Stringer MD - 08/08/2023 [facility] 1965 [id number] Exam Date/Time: 08/08/2023 07:22 Procedure: XR CHEST [...] Electronically Signed Date/Time: 08/08/2023 7:16 AM EDT [facility] Radiology Study observation (narrative) [facility] XR Chest Single viewOrdered By: Yvette Stringer on 08-08-2023 [facility] Work Phone: Basophil percentageOrdered B y: Jared Guzman on 08-04-2023 Chloride [Moles/Vol] 107 mmol/L 98-107 [facility] Glucose [Mass/Vol] 140 mg/dL 74-106 [facility] Comment on above: Fasting Glucose resu lt greater than or equal to 126 mg/dL suggests DIABETES MELLITUS per A.D.A. criteria. Potassium [Moles/Vol] 4.7 mmol/L 3.5-5.1 [facility] Sodium [Moles/Vol] 137 mmol/L 136-145 [facility] Laboratory - Chemistry and C hemistry - challengeOrdered By: Jared Guzman on 08-04-2023 CO2 [Moles/Vol] 27.0 mmol/L 21.0-32.0 [facility] Urea nitrogen/Creatinine [Mass ratio] 29.5 mg/mg 10-20 [facility] No Panel InformationOrdered By: Jared Guzman on 08-04-2023 Estimated GFR (MDRD) Amer 85 mL/min >60 [facility] Comment on above: GFR Calc Estimated GFR (MDRD) Non-Af Amer 71 mL/min >60 [facility] Comment on above: Non- GFR Calc Serum or plasma calcium mauricio urement (mass/volume)Ordered By: Jared Guzman on 08-04-2023 Calcium [Mass/Vol] 8.6 mg/dL 8.5-10.1 [facility] Serum or plasma creatinine m easurement (mass/volume)Ordered By: Jared Guzman on 08-04-2023 Creatinine [Mass/Vol] 0.88 mg/dL 0.55-1.02 [facility] Comment on above: The validity of the calculated GFR & GFRAA in patients over 70 years has not been determined. Clinical correlation is essential. Serum or plasma urea nitroge n measurement (mass/volume)Ordered By: Jared Guzman on 08-04-2023 Urea nitrogen [Mass/Vol] 26 mg/dL 7-18 [facility] Thin prep Papanicolaou smear with manual screeningOrdered By: Jared Guzman on 08-04-2023 Thin prep Papanicolaou smear with manual screening 3 5-15 [facility] Basophil percentageOrdered B y: Jared Guzman on 08-02-2023 Chloride [Moles/Vol] 102 mmol/L 98-107 [facility] Glucose [Mass/Vol] 393 mg/dL 74-106 [facility] Comment on above: Glucose result great er than or equal to 200 mg/dLsuggests DIABETES MELLITUS per A.D.A. criteria. Potassium [Moles/Vol] 6.1 mmol/L 3.5-5.1 [facility] Sodium [Moles/Vol] 131 mmol/L 136-145 [facility] WBC (Bld) [#/Vol] 6.7 10*3/uL 4.4-11.0 [facility] Blood erythrocytes count (nu mber/volume)Ordered By: Jared Guzman on 08-02-2023 RBC (Bld) [#/Vol] 3.97 10*6/uL 4.2-5.4 [facility] Blood hemoglobin measurement (mass/volume)Ordered By: Jared Guzman on 08-02-2023 Hemoglobin (Bld) [Mass/Vol] 10.9 g/dL 12.0-15.0 [facility] Blood platelet mean volumeOr dered By: Jared Guzman on 08-02-2023 Platelet mean volume (Bld) [Entitic vol] 10.3 fL 6.2-12.0 [facility] Determination of erythrocyte mean corpuscular volume (MCV)Ordered By: Jared Guzman on 08-02-2023 MCV (RBC) [Entitic vol] 88.9 fL 81-99 [facility] Hematocrit Auto (Bld) [Volum e fraction]Ordered By: Jared Guzman on 08-02-2023 Hematocrit (Bld) [Volume fraction] 35.3 % 37-47 [facility] Laboratory - Chemistry and C hemistry - challengeOrdered By: Jared Guzman on 08-02-2023 CO2 [Moles/Vol] 22.0 mmol/L 21.0-32.0 [facility] Urea nitrogen/Creatinine [Mass ratio] 26.2 mg/mg 10-20 [facility] Laboratory - Hematology and Cell countsOrdered By: Jared Guzman on 08-02-2023 Erythrocyte distribution width (RBC) [Entitic vol] 48.3 fL 35.1-43.9 [facility] Erythrocyte distribution width (RBC) [Ratio] 14.7 % 11.6-14.6 [facility] MCH (RBC) [Entitic mass] 27.5 pg 27.0-32.0 [facility] MCHC Auto (RBC) [Mass/Vol]Or dered By: Jared Guzman on 08-02-2023 MCHC (RBC) [Mass/Vol] 30.9 g/dL 32-36 [facility] No Panel InformationOrdered By: Jared Guzman on 08-02-2023 Estimated GFR (MDRD) Amer 86 mL/min >60 [facility] Comment on above: GFR Calc Estimated GFR (MDRD) Non-Af Amer 71 mL/min >60 [facility] Comment on above: Non- GFR Calc Platelets bldOrdered By: Mike Guzman on 08-02-2023 Platelets (Bld) [#/Vol] 342 10*3/uL 150-450 [facility] Serum or plasma calcium mauricio urement (mass/volume)Ordered By: Jared Guzman on 08-02-2023 Calcium [Mass/Vol] 8.8 mg/dL 8.5-10.1 [facility] Serum or plasma creatinine m easurement (mass/volume)Ordered By: Jared Guzman on 08-02-2023 Creatinine [Mass/Vol] 0.88 mg/dL 0.55-1.02 [facility] Comment on above: The validity of the calculated GFR & GFRAA in patients over 70 years has not been determined. Clinical correlation is essential. Serum or plasma urea nitroge n measurement (mass/volume)Ordered By: Jared Guzman on 08-02-2023 Urea nitrogen [Mass/Vol] 23 mg/dL 7-18 [facility] Thin prep Papanicolaou smear with manual screeningOrdered By: Jared Guzman on 08-02-2023 Thin prep Papanicolaou smear with manual screening 7 5-15 [facility] Basophil percentageOrdered B y: Jared Guzman on 07-05-2023 Bilirubin [Mass/Vol] 0.30 mg/dL 0.20-1.00 [facility] Comment on above: For patients on eltr ombopag therapy, use of [employer] [place] TBIL is not recommended..Previous reported result: 0.30 mg/dLEdited by: PAULINE on 07/06/23:0945 AMENDED REPORT 07/06/2345 T BILI previously reported as: 0.30 mg/dL For patients on eltrombopag therapy, use of [employer] [place] TBIL is not recommended. Chloride [Moles/Vol] 108 mmol/L 98-107 [facility] Comment on above: .Previous reported r esult: 108 mmol/LEdited by: PAULINE on 07/06/23:0945 AMENDED REPORT 07/06/23944 CL previously reported as: 108 H mmol/L Glucose [Mass/Vol] 149 mg/dL 74-106 [facility] Comment on above: Fasting Glucose resu lt greater than or equal to 126 mg/dL suggests DIABETES MELLITUS per A.D.A. criteria..Previous reported result: 149 mg/dLEdited by: PAULINE on 07/06/23:0943 AMENDED REPORT 07/06/23942 GLU previously reported as: 149 H mg/dL Fasting Glucose result greater than or equal to 126 mg/dL suggests DIABETES MELLITUS per A.D.A. criteria. Potassium [Moles/Vol] 4.4 mmol/L 3.5-5.1 [facility] Comment on above: .Previous reported r esult: 4.4 mmol/LEdited by: PAULINE on 07/06/23:0945 AMENDED REPORT 07/06/23944 K previously reported as: 4.4 mmol/L Protein [Mass/Vol] 6.3 g/dL 6.4-8.2 [facility] Comment on above: .Previous reported r esult: 6.3 g/dLEdited by: PAULINE on 07/06/23:0944 AMENDED REPORT 07/06/23943 T PROT previously reported as: 6.3 L g/dL Sodium [Moles/Vol] 138 mmol/L 136-145 [facility] Comment on above: .Previous reported r esult: 138 mmol/LEdited by: PAULINE on 07/06/23:0945 AMENDED REPORT 07/06/2345 NA previously reported as: 138 mmol/L WBC (Bld) [#/Vol] 7.0 10*3/uL 4.4-11.0 [facility] Comment on above: .Previous reported r esult: 7.0 K/sv5Hakhgu by: PAULINE on 07/06/23:0941 AMENDED REPORT 07/06/23940 WBC previously reported as: 7.0 K/mm3 Blood erythrocytes count (nu mber/volume)Ordered By: Jared Guzman on 07-05-2023 RBC (Bld) [#/Vol] 4.01 10*6/uL 4.2-5.4 [facility] Comment on above: .Previous reported r esult: 4.01 M/on4Ovmlqo by: PAULINE on 07/06/23:0941 AMENDED REPORT 07/06/23940 RBC previously reported as: 4.01 L M/mm3 Blood hemoglobin measurement (mass/volume)Ordered By: Jared Guzman on 07-05-2023 Hemoglobin (Bld) [Mass/Vol] 10.9 g/dL 12.0-15.0 [facility] Comment on above: .Previous reported r esult: 10.9 g/dLEdited by: PAULINE on 07/06/23:0941 AMENDED REPORT 07/06/23940 HGB previously reported as: 10.9 L g/dL Blood platelet mean volumeOr dered By: Jared Guzman on 07-05-2023 Platelet mean volume (Bld) [Entitic vol] 10.1 fL 6.2-12.0 [facility] Comment on above: .Previous reported r esult: 10.1 flEdited by: PAULINE on 07/06/23:0942 AMENDED REPORT 07/06/23941 MPV previously reported as: 10.1 fl Determination of erythrocyte mean corpuscular volume (MCV)Ordered By: Jared Guzman on 07-05-2023 MCV (RBC) [Entitic vol] 89.3 fL 81-99 [facility] Comment on above: .Previous reported r esult: 89.3 fLEdited by: PAULINE on 07/06/23:0942 AMENDED REPORT 07/06/23941 MCV previously reported as: 89.3 fL Hematocrit Auto (Bld) [Volum e fraction]Ordered By: Jared Guzman on 07-05-2023 Hematocrit (Bld) [Volume fraction] 35.8 % 37-47 [facility] Comment on above: .Previous reported r esult: 35.8 %Edited by: PAULINE on 07/06/23:0942 AMENDED REPORT 07/06/23941 HCT previously reported as: 35.8 L % Laboratory - Chemistry and C hemistry - challengeOrdered By: Jared Guzman on 07-05-2023 ALP [Catalytic activity/Vol] 155 U/L 45-117 [facility] Comment on above: ..Previous reported result: 155 U/LEdited by: PAULINE on 07/06/23:0945 AMENDED REPORT 07/06/2345 ALK P previously reported as: 155 H U/L ALT [Catalytic activity/Vol] 43 U/L 13-56 [facility] Comment on above: .Previous reported r esult: 43 U/LEdited by: PAULINE on 07/06/23:0945 AMENDED REPORT 07/06/2345 ALT previously reported as: 43 U/L CO2 [Moles/Vol] 26.0 mmol/L 21.0-32.0 [facility] Comment on above: .Previous reported r esult: 26.0 mmol/LEdited by: PAULINE on 07/06/23:0946 AMENDED REPORT 07/06/2346 CO2 previously reported as: 26.0 mmol/L Globulin (S) [Mass/Vol] 3.6 g/dL 2.2-4.2 [facility] Comment on above: .Previous reported r esult: 3.6 g/dLEdited by: PAULINE on 07/06/23:0944 AMENDED REPORT 07/06/2344 GLOB previously reported as: 3.6 g/dL Urea nitrogen/Creatinine [Mass ratio] 23.7 mg/mg 10-20 [facility] Comment on above: .Previous reported r esult: 23.5 RATIOEdited by: PAULINE on 07/06/23:0943 AMENDED REPORT 07/06/2343 BUN/CRE previously reported as: 23.5 H RATIO Laboratory - Hematology and Cell countsOrdered By: Jared Guzman on 07-05-2023 Erythrocyte distribution width (RBC) [Entitic vol] 47.5 fL 35.1-43.9 [facility] Comment on above: .Previous reported r esult: 47.5 flEdited by: PAULINE on 07/06/23:0942 AMENDED REPORT 07/06/2342 RDW SD previously reported as: 47.5 H fl Erythrocyte distribution width (RBC) [Ratio] 14.5 % 11.6-14.6 [facility] Comment on above: .Previous reported r esult: 14.5 %Edited by: PAULINE on 07/06/23:0942 AMENDED REPORT 07/06/23941 RDW CV previously reported as: 14.5 % MCH (RBC) [Entitic mass] 27.2 pg 27.0-32.0 [facility] Comment on above: .Previous reported r esult: 27.2 pgEdited by: PAULINE on 07/06/23:0942 AMENDED REPORT 07/06/23941 MCH previously reported as: 27.2 pg MCHC Auto (RBC) [Mass/Vol]Or dered By: Jared Guzman on 07-05-2023 MCHC (RBC) [Mass/Vol] 30.4 g/dL 32-36 [facility] Comment on above: .Previous reported r esult: 30.4 g/dLEdited by: PAULINE on 07/06/23:0942 AMENDED REPORT 07/06/23941 MCHC previously reported as: 30.4 L g/dL No Panel InformationOrdered By: Jared Guzman on 07-05-2023 Estimated GFR (MDRD) Amer 137 mL/min >60 [facility] Comment on above: GFR Calc.Previous reported result: 135 mL/minEdited by: PAULINE on 07/06/23:0943 AMENDED REPORT 07/06/23942 EST GFR - AA previously reported as: 135 mL/min GFR Calc Estimated GFR (MDRD) Non-Af Amer 113 mL/min >60 [facility] Comment on above: Non- GFR Calc.Previous reported result: 112 mL/minEdited by: PAULINE on 07/06/23:0943 AMENDED REPORT 07/06/23942 EST GFR previously reported as: 112 mL/min Non- GFR Calc Platelets bldOrdered By: Mike Guzman on 07-05-2023 Platelets (Bld) [#/Vol] 352 10*3/uL 150-450 [facility] Comment on above: .Previous reported r esult: 352 [id number] by: PAULINE on 07/06/23:0942 AMENDED REPORT 07/06/23941 PLT previously reported as: 352 K/mm3 Serum or plasma albumin mauricio urement (mass/volume)Ordered By: Jared Guzman on 07-05-2023 Albumin [Mass/Vol] 2.7 g/dL 3.2-5.0 [facility] Comment on above: .Previous reported r esult: 2.7 g/dLEdited by: PAULINE on 07/06/23:0944 AMENDED REPORT 07/06/23943 ALB previously reported as: 2.7 L g/dL Serum or plasma albumin/glob ulin mass ratioOrdered By: Jared Guzman on 07-05-2023 Albumin/Globulin [Mass ratio] 0.8 {ratio} 0.9-2.4 [facility] Comment on above: .Previous reported r esult: 0.8 RATIOEdited by: PAULINE on 07/06/23:0944 AMENDED REPORT 07/06/23943 A/G previously reported as: 0.8 L RATIO Serum or plasma calcium mauricio urement (mass/volume)Ordered By: Jared Guzman on 07-05-2023 Calcium [Mass/Vol] 8.8 mg/dL 8.5-10.1 [facility] Comment on above: .Previous reported r esult: 8.8 mg/dLEdited by: PAULINE on 07/06/23:0944 AMENDED REPORT 07/06/23943 CA previously reported as: 8.8 mg/dL Serum or plasma creatinine m easurement (mass/volume)Ordered By: Jared Guzman on 07-05-2023 Creatinine [Mass/Vol] 0.76 mg/dL 0.55-1.02 [facility] Comment on above: The validity of [...] 07-05-2023 Urea nitrogen [Mass/Vol] 18 mg/dL 7-18 [facility] Comment on above: .Previous reported r esult: 18 mg/dLEdited by: PAULINE on 07/06/23:0943 AMENDED REPORT 07/06/2343 BUN previously reported as: 18 mg/dL Thin prep Papanicolaou smear with manual screeningOrdered By: Jared Guzman on 07-05-2023 Thin prep Papanicolaou smear with manual screening 15 U/L 15- [facility] Comment on above: .Previous reported r esult: 15 U/LEdited by: PAULINE on 07/06/23:0945 AMENDED REPORT 07/06/2345 AST previously reported as: 15 U/L Thin prep Papanicolaou smear with manual screening 4 03-22 [facility] Comment on above: .Previous reported r esult: 4 Edited by: PAULINE on 07/06/23:0946 AMENDED REPORT 07/06/2346 GAP previously reported as: 4 L Laboratory - Chemistry and C hemistry - challengeon 07-01-2023 Glucose [Mass/Vol] 391 mg/dL High 70 - 100 mg/dL [facility] Glucose [Mass/Vol] 242 mg/dL High 70 - 100 mg/dL [facility] No Panel Informationon 07-01 Interpretation and review of laboratory results Abnormal [facility] Performed by: [facility], [address] [facility] [address] CLIA ID: [id number] [facility] Interpretation and review of laboratory results Abnormal [facility] Performed by: [facility], [address] [facility] [address] CLIA ID: [id number] [facility] Laboratory - Chemistry and C hemistry - challengeon 06-30-2023 Glucose [Mass/Vol] 101 mg/dL High 70 - 100 mg/dL [facility] Glucose [Mass/Vol] 131 mg/dL High 70 - 100 mg/dL [facility] Glucose [Mass/Vol] 251 mg/dL High 70 - 100 mg/dL [facility] Glucose [Mass/Vol] 317 mg/dL High 70 - 100 mg/dL [facility] No Panel Informationon 06-30 Interpretation and review of laboratory results Abnormal [facility] Performed by: [facility], [address] [facility] [address] CLIA ID: [id number] [facility] Interpretation and review of laboratory results Abnormal [facility] Performed by: [facility], [address] [facility] [address] CLIA ID: [id number] [facility] Art Benavidez M D - 06/30/2023 IMPRESSION: Sinus rhythm Abnormal R-wave progression, late transition Left ventricular hypertrophy Electronically Signed On 06-30-2023 12:43:24 EDT by Art Benavidez [facility] Interpretation and review of laboratory results Abnormal [facility] Performed by: [facility], [address] [place] [address] CLIA ID: [id number] [facility] Interpretation and review of laboratory results Abnormal [facility] Performed by: [facility], [address] [place] [address] CLIA ID: [id number] [facility] No Panel InformationOrdered By: Art Benavidez on 06-30-2023 P Lynn 37 degrees [employer] Work Phone: NE Interval 166 ms [employer] Work Phone: QRS Lynn -31 degrees [employer] Work Phone: QRSD Interval 112 ms [employer] Work Phone: QT Interval 413 ms [employer] Work Phone: QTC Interval 466 ms [employer] Work Phone: T Wave Lynn 22 degrees [employer] Work Phone: [employer] Work Phone: Vital signsOrdered By: Laron Benavidez on 06-30-2023 Heart rate 76 /min bpm [facility] Work Phone: CBC panel Auto (Bld)Ordered By: Alex Kwok on 06-29-2023 Erythrocyte distribution width (RBC) [Ratio] 15.3 % High 11.5 - 14.5 % [facility] Hematocrit (Bld) [Volume fraction] 32.6 % [facility] Hemoglobin (Bld) [Mass/Vol] 10.8 g/dL Low 11.7 - 18.0 g/dL [facility] Interpretation and review of laboratory results Abnormal [facility] MCH (RBC) [Entitic mass] 27.5 pg 26.0 - 34.0 pg [facility] MCHC (RBC) [Mass/Vol] 33.2 % 32.0 - 36.0 % [facility] MCV (RBC) [Entitic vol] 82.9 fL 80.0 - 98.0 fL [facility] Platelet mean volume (Bld) [Entitic vol] 7.7 fL 7.4 - 12.4 fL [facility] Platelets (Bld) [#/Vol] 361 10*3/uL 140 - 440 10*3/uL [facility] RBC (Bld) [#/Vol] 3.94 10*6/uL [facility] WBC (Bld) [#/Vol] 9.2 10*3/uL 3.6 - 10.7 10*3/uL [facility] Comprehensive metabolic 1998 panelon 06-29-2023 Albumin [Mass/Vol] 3.4 g/dL Low 3.5 - 5.0 g/dL [facility] ALP [Catalytic activity/Vol] 121 U/L 38 - 126 U/L [facility] ALT [Catalytic activity/Vol] 41 U/L [facility] Anion gap [Moles/Vol] 6 mmol/L 3 - 13 mmol/L [facility] AST [Catalytic activity/Vol] 32 U/L 15 - 46 U/L [facility] Bilirubin [Mass/Vol] 0.3 mg/dL 0.2 - 1 .3 mg/dL [facility] Calcium [Mass/Vol] 8.3 mg/dL Low 8.4 - 10. 4 mg/dL [facility] Chloride [Moles/Vol] 103 mmol/L 98 - 10 7 mmol/L [facility] CO2 [Moles/Vol] 27 mmol/L 22 - 30 mmol/L [facility] Creatinine [Mass/Vol] 0.79 mg/dL [facility] GFR/1.73 sq M.predicted MDRD (S/P/Bld) [Vol rate/Area] 87.9 mL/min/{1.73_m2} - PINF [facility] Comment on above: Calculation based on the Chronic Kidney Disease Epidemiology Collaboration (CKD-EPI) equation refit without adjustment for race Glucose [Mass/Vol] 193 mg/dL High 70 - 100 mg/dL [facility] Interpretation and review of laboratory results Abnormal [facility] Potassium [Moles/Vol] 5.0 mmol/L 3.5 - 5.1 mmol/L [facility] Protein [Mass/Vol] 6.3 g/dL 6.3 - 8.2 g/dL [facility] Sodium [Moles/Vol] 136 mmol/L 135 - 145 mmol/L [facility] Urea nitrogen [Mass/Vol] 23 mg/dL [facility] Laboratory - Chemistry and C hemistry - challengeon 06-29-2023 Glucose [Mass/Vol] 180 mg/dL High 70 - 100 mg/dL [facility] Glucose [Mass/Vol] 338 mg/dL High 70 - 100 mg/dL [facility] Glucose [Mass/Vol] 244 mg/dL High 70 - 100 mg/dL [facility] Glucose [Mass/Vol] 234 mg/dL High 70 - 100 mg/dL [facility] No Panel Informationon 06-29 Interpretation and review of laboratory results Abnormal [facility] Performed by: [facility], [address] [place] [address] CLIA ID: [id number] [facility] Interpretation and review of laboratory results Abnormal [facility] Performed by: [facility], [address] [place] [address] CLIA ID: [id number] [facility] Interpretation and review of laboratory results Abnormal [facility] Performed by: [facility], [address] [place] [address] CLIA ID: [id number] [facility] Interpretation and review of laboratory results Abnormal [facility]formed by: [facility], [address] [place] [address] CLIA ID: [id number] [facility] Basic metabolic 1998 panelon 06-28-2023 Anion gap [Moles/Vol] 7 mmol/L 3 - 13 mmol/L [facility] Calcium [Mass/Vol] 9.1 mg/dL 8.4 - 10. 4 mg/dL [facility] Chloride [Moles/Vol] 102 mmol/L 98 - 10 7 mmol/L [facility] CO2 [Moles/Vol] 24 mmol/L 22 - 30 mmol/L [facility] Creatinine [Mass/Vol] 0.64 mg/dL [facility] GFR/1.73 sq M.predicted MDRD (S/P/Bld) [Vol rate/Area] - PINF [facility] Comment on above: Calculation based on the Chronic Kidney Disease Epidemiology Collaboration (CKD-EPI) equation refit without adjustment for race Glucose [Mass/Vol] 194 mg/dL High 70 - 100 mg/dL [facility] Interpretation and review of laboratory results Abnormal [facility] Potassium [Moles/Vol] 5.0 mmol/L 3.5 - 5.1 mmol/L [facility] Sodium [Moles/Vol] 133 mmol/L Low 135 - 145 mmol/L [facility] Urea nitrogen [Mass/Vol] 20 mg/dL [facility] CBC W Auto Differential pane l (Bld)Ordered By: Joel Houston on 06-28-2023 Basophils (Bld) [#/Vol] 0.1 10*3/uL 0.0 - 0.2 10*3/uL [facility] Basophils/100 WBC (Bld) 0.6 % 0.0 - 2.0 % [facility] Eosinophils (Bld) [#/Vol] 0.0 10*3/uL 0.0 - 0.5 10*3/uL [facility] Eosinophils/100 WBC (Bld) 0.1 % Low 1.0 - 6.0 % [facility] Erythrocyte distribution width (RBC) [Ratio] 15.4 % High 11.5 - 14.5 % [facility] Hematocrit (Bld) [Volume fraction] 35.1 % [facility] Hemoglobin (Bld) [Mass/Vol] 11.6 g/dL Low 11.7 - 18.0 g/dL [facility] Interpretation and review of laboratory results Abnormal [facility] Lymphocytes (Bld) [#/Vol] 0.6 10*3/uL Low [...] 10.6 10*3/uL High 1.8 - 7.0 10*3/uL [facility] Neutrophils/100 WBC (Bld) 90.3 % High 40.0 - 80.0 % [facility] Nucleated RBC/100 WBC (Bld) [Ratio] 0.0 % [facility] Platelet mean volume (Bld) [Entitic vol] 7.9 fL 7.4 - 12.4 fL [facility] Platelets (Bld) [#/Vol] 384 10*3/uL 140 - 440 10*3/uL [facility] RBC (Bld) [#/Vol] 4.26 10*6/uL [facility] WBC (Bld) [#/Vol] 11.8 10*3/uL High 3.6 - 10.7 10*3/uL [facility] CTA Chest vessels WO and W [...] Multilevel flowing osteophytes consistent with DISH. [facility] Yvette Stringer MD - 06/28/2023 [facility] Name: [facility] 1965 [id number] Exam Date/Time: 06/28/2023 03:49 Procedure: CT CHEST [...] Electronically Signed Date/Time: 06/28/2023 4:37 AM EDT [facility] Radiology Study observation (narrative) [facility] Laboratory - Chemistry and C hemistry - challengeon 06-28-2023 Glucose [Mass/Vol] 223 mg/dL High 70 - 100 mg/dL [facility] Glucose [Mass/Vol] 270 mg/dL High 70 - 100 mg/dL [facility] Troponin I.cardiac [Mass/Vol] ng/mL 0.000 - 0.034 ng/mL [facility] Glucose [Mass/Vol] 253 mg/dL High 70 - 100 mg/dL [facility] Glucose [Mass/Vol] 247 mg/dL High 70 - 100 mg/dL [facility] Troponin I.cardiac [Mass/Vol] ng/mL 0.000 - 0.034 ng/mL [facility] Natriuretic peptide B [Mass/ Vol]on 06-28-2023 Interpretation and review of laboratory results Normal [facility] Natriuretic peptide B (Bld) [Mass/Vol] 150 pg/mL <20 - 300 [facility] No Panel Informationon 06-28 Interpretation and review of laboratory results Abnormal [facility] Performed by: [facility], [address] [place] [address] CLIA ID: [id number] [facility] Interpretation and review of laboratory results Abnormal [facility] Performed by: [facility], [address] [place] [address] CLIA ID: [id number] [facility] Interpretation and review of laboratory results Abnormal [facility] Performed by: [facility], [address] [place] [address] CLIA ID: [id number] [facility] Interpretation and review of laboratory results Abnormal [facility] Performed by: [facility], [address] [place] [address] CLIA ID: [id number] [facility] P Lynn 44 degrees [facility] NE Interval 180 ms [facility] QRS Lynn -37 degrees [facility] QRSD Interval 115 ms [facility] QT Interval 364 ms [facility] QTC Interval 481 ms [facility] T Wave Lynn 53 degrees [facility] Sinus tachycardia Nonspecific IVCD with LAD Left ventricular hypertrophy Minimal ST elevation, anterolateral leads Electronically Signed On 06-28-2023 5:20:13 EDT by Rosaura Rosa, DO - 06/28/2023 IMPRESSION: Sinus tachycardia Nonspecific IVCD with LAD Left ventricular hypertrophy Minimal ST elevation, anterolateral leads Electronically Signed On 06-28-2023 5:20:13 EDT by Rosaura Mustafa [facility] Troponin I.cardiac [Mass/Vol ]on 06-28-2023 Interpretation and review of laboratory results Normal [facility] Patients with high levels of Biotin oral intake (ie >5 mg/day) may have falsely decreased Troponin levels. [facility] Interpretation and review of laboratory results Normal [facility] Patients with high levels of Biotin oral intake (ie >5 mg/day) may have falsely decreased Troponin levels. [facility] Vital signson 06-28-2023 Heart rate 105 /min bpm [facility] XR Chest Single viewon 06-28 Low lung volumes. No acute infiltrate or effusion. Report Dictated on Electronically Signed By: Chucho Stringer MD Electronically Signed Date/Time: 06/28/2023 3:08 AM T [facility] Patient Name: [...] Normal BONES:Unremarkable SUPPORT LINES: None OTHER: [facility] Yvette Stringer MD - 06/28/2023 Patient Name: [facility] 1965 [id number] Exam Date/Time: 06/28/2023 03:08 Procedure: XR CHEST [...] Electronically Signed Date/Time: 06/28/2023 3:08 AM EDT [facility] Radiology Study observation (narrative) [facility] XR Chest Single viewOrdered By: Yvette Stringer on 06-28-2023 [facility] Work Phone: Basophil percentageOrdered B y: Jared Guzman on 05-31-2023 Chloride [Moles/Vol] 106 mmol/L 98-107 [facility] Glucose [Mass/Vol] 227 mg/dL 74-106 [facility] Comment on above: Glucose result great er than or equal to 200 mg/dLsuggests DIABETES MELLITUS per A.D.A. criteria. Potassium [Moles/Vol] 4.8 mmol/L 3.5-5.1 [facility] Sodium [Moles/Vol] 137 mmol/L 136-145 [facility] WBC (Bld) [#/Vol] 7.7 10*3/uL 4.4-11.0 [facility] Blood erythrocytes count (nu mber/volume)Ordered By: Jared Guzman on 05-31-2023 RBC (Bld) [#/Vol] 3.90 10*6/uL 4.6-6.2 [facility] Blood hemoglobin measurement (mass/volume)Ordered By: Jared Guzman on 05-31-2023 Hemoglobin (Bld) [Mass/Vol] 10.4 g/dL 13.0-16.5 [facility] Blood platelet mean volumeOr dered By: Jared Guzman on 05-31-2023 Platelet mean volume (Bld) [Entitic vol] 9.9 fL 6.2-12.0 [facility] Determination of erythrocyte mean corpuscular volume (MCV)Ordered By: Jared Guzman on 05-31-2023 MCV (RBC) [Entitic vol] 89.7 fL 80-94 [facility] Hematocrit Auto (Bld) [Volum e fraction]Ordered By: Jared Guzman on 05-31-2023 Hematocrit (Bld) [Volume fraction] 35.0 % 40-54 [facility] Laboratory - Chemistry and C hemistry - challengeOrdered By: Jared Guzman on 05-31-2023 CO2 [Moles/Vol] 26.0 mmol/L 21.0-32.0 [facility] Urea nitrogen/Creatinine [Mass ratio] 31.0 mg/mg 10-20 [facility] Laboratory - Hematology and Cell countsOrdered By: Jared Guzman on 05-31-2023 Erythrocyte distribution width (RBC) [Entitic vol] 46.2 fL 35.1-43.9 [facility] Erythrocyte distribution width (RBC) [Ratio] 14.3 % 11.6-14.6 [facility] MCH (RBC) [Entitic mass] 26.7 pg 27.0-32.0 [facility] MCHC Auto (RBC) [Mass/Vol]Or dered By: Jared Guzman on 05-31-2023 MCHC (RBC) [Mass/Vol] 29.7 g/dL 32-36 [facility] No Panel InformationOrdered By: Jared Guzman on 05-31-2023 Estimated GFR (MDRD) Amer 133 mL/min >60 [facility] Comment on above: GFR Calc Estimated GFR (MDRD) Non-Af Amer 110 mL/min >60 [facility] Comment on above: Non- GFR Calc Platelets bldOrdered By: Mike Guzman on 05-31-2023 Platelets (Bld) [#/Vol] 400 10*3/uL 150-450 [facility] Serum or plasma calcium mauricio urement (mass/volume)Ordered By: Jared Guzman on 05-31-2023 Calcium [Mass/Vol] 8.9 mg/dL 8.5-10.1 [facility] Serum or plasma creatinine m easurement (mass/volume)Ordered By: Jared Guzman on 05-31-2023 Creatinine [Mass/Vol] 0.78 mg/dL 0.70-1.30 [facility] Comment on above: The validity of the calculated GFR & GFRAA in patients over 70 years has not been determined. Clinical correlation is essential. Serum or plasma urea nitroge n measurement (mass/volume)Ordered By: Jared Guzman on 05-31-2023 Urea nitrogen [Mass/Vol] 24 mg/dL 7-18 [facility] Thin prep Papanicolaou smear with manual screeningOrdered By: Jared Guzman on 05-31-2023 Thin prep Papanicolaou smear with manual screening 5 5-15 [facility] Whole blood hemoglobin A1c/t otal hemoglobin ratio (mass fraction)Ordered By: Jared Guzman on 05-31-2023 HbA1c (Bld) [Mass fraction] 8.2 % 3.8-5.6 [facility] Comment on above: Normal < 5.7 % Predi abetic 5.7 - 6.4 % Diabetic >or= 6.5 % Please note range changes. Basophil percentageOrdered B y: Jared Guzman on 04-19-2023 Bilirubin [Mass/Vol] 0.20 mg/dL 0.20-1.00 [facility] Comment on above: For patients on eltr ombopag therapy, use of Dimension [place] TBIL is not recommended. Chloride [Moles/Vol] 104 mmol/L 98-107 [facility] Cholesterol [Mass/Vol] 136 mg/dL <200 [facility] Comment on above: <200 mg/dL Desirable 200-240 mg/dL Borderline >240 mg/dL High Risk Glucose [Mass/Vol] 252 mg/dL 74-106 [facility] Comment on above: Glucose result great er than or equal to 200 mg/dLsuggests DIABETES MELLITUS per A.D.A. criteria. Potassium [Moles/Vol] 4.9 mmol/L 3.5-5.1 [facility] Protein [Mass/Vol] 6.5 g/dL 6.4-8.2 [facility] Sodium [Moles/Vol] 136 mmol/L 136-145 [facility] Triglyceride [Mass/Vol] 173 mg/dL <199 [facility] Comment on above: The drugs N-Acetylcy steine and Metamizole may falsely depress this assay.Serum Triglycerides Reference Interval Normal <150 mg/dL Borderline high 150 - 199 mg/dL High 200 - 499 mg/dL Very High > or = 500 mg/dL WBC (Bld) [#/Vol] 7.4 10*3/uL 4.4-11.0 [facility] Blood erythrocytes count (nu mber/volume)Ordered By: Jared Guzman on 04-19-2023 RBC (Bld) [#/Vol] 4.12 10*6/uL 4.6-6.2 [facility] Blood hemoglobin measurement (mass/volume)Ordered By: Jared Guzman on 04-19-2023 Hemoglobin (Bld) [Mass/Vol] 11.2 g/dL 13.0-16.5 [facility] Blood platelet mean volumeOr dered By: Jared Guzman on 04-19-2023 Platelet mean volume (Bld) [Entitic vol] 10.2 fL 6.2-12.0 [facility] Determination of erythrocyte mean corpuscular volume (MCV)Ordered By: Jared Guzman on 04-19-2023 MCV (RBC) [Entitic vol] 90.8 fL 80-94 [facility] Hematocrit Auto (Bld) [Volum e fraction]Ordered By: Jared Guzman on 04-19-2023 Hematocrit (Bld) [Volume fraction] 37.4 % 40-54 [facility] Laboratory - Chemistry and C hemistry - challengeOrdered By: Jared Guzman on 04-19-2023 ALP [Catalytic activity/Vol] 176 U/L 45-117 [facility] ALT [Catalytic activity/Vol] 39 U/L 16-61 [facility] CO2 [Moles/Vol] 26.0 mmol/L 21.0-32.0 [facility] Globulin (S) [Mass/Vol] 3.5 g/dL 2.2-4.2 [facility] Urea nitrogen/Creatinine [Mass ratio] 23.7 mg/mg 10-20 [facility] Laboratory - Hematology and Cell countsOrdered By: Jared Guzman on 04-19-2023 Erythrocyte distribution width (RBC) [Entitic vol] 46.9 fL 35.1-43.9 [facility] Erythrocyte distribution width (RBC) [Ratio] 14.1 % 11.6-14.6 [facility] MCH (RBC) [Entitic mass] 27.2 pg 27.0-32.0 [facility] MCHC Auto (RBC) [Mass/Vol]Or dered By: Jared Guzman on 04-19-2023 MCHC (RBC) [Mass/Vol] 29.9 g/dL 32-36 [facility] No Panel InformationOrdered By: Jared Guzman on 04-19-2023 Estimated GFR (MDRD) Amer 128 mL/min >60 [facility] Comment on above: GFR Calc Estimated GFR (MDRD) Non-Af Amer 106 mL/min >60 [facility] Comment on above: Non- GFR Calc Platelets bldOrdered By: Mike Guzman on 04-19-2023 Platelets (Bld) [#/Vol] 361 10*3/uL 150-450 [facility] Serum or plasma albumin mauricio urement (mass/volume)Ordered By: Jared Guzman on 04-19-2023 Albumin [Mass/Vol] 3.0 g/dL 3.2-5.0 [facility] Serum or plasma albumin/glob ulin mass ratioOrdered By: Jared Guzman on 04-19-2023 Albumin/Globulin [Mass ratio] 0.9 {ratio} 0.9-2.4 [facility] Serum or plasma calcium mauricio urement (mass/volume)Ordered By: Jared Guzman on 04-19-2023 Calcium [Mass/Vol] 8.8 mg/dL 8.5-10.1 [facility] Serum or plasma cholesterol in HDL measurement (mass/volume)Ordered By: Jared Guzman on 04-19-2023 Cholesterol in HDL [Mass/Vol] 33 mg/dL >40 [facility] Comment on above: The drugs N-Acetylcy steine and Metamizole may falsely depress this assay. Reference Range HDL <40 mg/dL Low HDL Cholesterol HDL >or= 60 mg/dL High HDL Cholesterol Serum or plasma cholesterol in VLDL measurement (mass/volume)Ordered By: Jared Guzman on 04-19-2023 Cholesterol in VLDL [Mass/Vol] 35 mg/dL 5-40 [facility] Serum or plasma creatinine m easurement (mass/volume)Ordered By: Jared Guzman on 04-19-2023 Creatinine [Mass/Vol] 0.80 mg/dL 0.70-1.30 [facility] Comment on above: The validity of the calculated GFR & GFRAA in patients over 70 years has not been determined. Clinical correlation is essential. Serum or plasma low density lipoprotein (LDL) cholesterol measurement (mass/volume)Ordered By: Jared Guzman on 04-19-2023 Cholesterol in LDL [Mass/Vol] 68 mg/dL 0-130 [facility] Serum or plasma urea nitroge n measurement (mass/volume)Ordered By: Jared Guzman on 04-19-2023 Urea nitrogen [Mass/Vol] 19 mg/dL 7-18 [facility] Thin prep Papanicolaou smear with manual screeningOrdered By: Jared Guzman on 04-19-2023 Thin prep Papanicolaou smear with manual screening 21 U/L 15-37 [facility] Thin prep Papanicolaou smear with manual screening 6 5-15 [facility] Whole blood hemoglobin A1c/t otal hemoglobin ratio (mass fraction)Ordered By: Jared Guzman on 04-19-2023 HbA1c (Bld) [Mass fraction] 9.0 % 3.8-5.6 [facility] Comment on above: Normal < 5.7 % Predi abetic 5.7 - 6.4 % Diabetic >or= 6.5 % Please note range changes. Whole blood hemoglobin A1c/t otal hemoglobin ratio (mass fraction)Ordered By: Jared Guzman on 03-30-2023 HbA1c (Bld) [Mass fraction] 9.4 % 3.8-5.6 [facility] Comment on above: Normal < 5.7 % Predi abetic 5.7 - 6.4 % Diabetic >or= 6.5 % Please note range changes. Basophil percentageOrdered B y: Jared Guzman on 03-15-2023 Cholesterol [Mass/Vol] 142 mg/dL <200 [facility] Comment on above: <200 mg/dL Desirable 200-240 mg/dL Borderline >240 mg/dL High Risk Triglyceride [Mass/Vol] 149 mg/dL <199 [facility] Comment on above: The drugs N-Acetylcy steine and Metamizole may falsely depress this assay.Serum Triglycerides Reference Interval Normal <150 mg/dL Borderline high 150 - 199 mg/dL High 200 - 499 mg/dL Very High > or = 500 mg/dL Serum or plasma cholesterol in HDL measurement (mass/volume)Ordered By: Jared Guzman on 03-15-2023 Cholesterol in HDL [Mass/Vol] 32 mg/dL >40 [facility] Comment on above: The drugs N-Acetylcy steine and Metamizole may falsely depress this assay. Reference Range HDL <40 mg/dL Low HDL Cholesterol HDL >or= 60 mg/dL High HDL Cholesterol Serum or plasma cholesterol in VLDL measurement (mass/volume)Ordered By: Jared Guzman on 03-15-2023 Cholesterol in VLDL [Mass/Vol] 30 mg/dL 5-40 [facility] Serum or plasma low density lipoprotein (LDL) cholesterol measurement (mass/volume)Ordered By: Jared Guzman on 03-15-2023 Cholesterol in LDL [Mass/Vol] 80 mg/dL 0-130 [facility] Beta Hydroxybutyrateon 03-08 Beta hydroxybutyrate [Mass/Vol] 1.94 mg/dL 0.20 - 2.81 mg/dL [facility] Interpretation and review of laboratory results Normal [facility] CBC W Auto Differential pane l (Bld)Ordered By: Hina Jaramillo on 03-08-2023 Basophils (Bld) [#/Vol] 0.1 10*3/uL 0.0 - 0.2 10*3/uL [facility] Basophils/100 WBC (Bld) 0.5 % 0.0 - 2.0 % [facility] Eosinophils (Bld) [#/Vol] 0.1 10*3/uL 0.0 - 0.5 10*3/uL [facility] Eosinophils/100 WBC (Bld) 0.4 % Low 1.0 - 6.0 % [facility] Erythrocyte distribution width (RBC) [Ratio] 14.6 % High 11.5 - 14.5 % [facility] Hematocrit (Bld) [Volume fraction] 37.8 % [facility] Hemoglobin (Bld) [Mass/Vol] 12.6 g/dL [facility] Interpretation and review of laboratory results Abnormal [facility] Lymphocytes (Bld) [#/Vol] 1.1 10*3/uL 1.0 - 4.3 10*3/uL [facility] Lymphocytes/100 WBC (Bld) 8.4 % Low 20.0 - 40.0 % [facility] MCH (RBC) [Entitic mass] 27.6 pg 26.0 - 34.0 pg [facility] MCHC (RBC) [Mass/Vol] 33.3 % 32.0 - 36.0 % [facility] MCV (RBC) [Entitic vol] 82.8 fL 80.0 - 98.0 fL [facility] Monocytes (Bld) [#/Vol] 0.7 10*3/uL 0.0 - 0.8 10*3/uL [facility] Monocytes/100 WBC (Bld) 5.5 % 2.0 - 10.0 % [facility] Neutrophils (Bld) [#/Vol] 10.9 10*3/uL High 1.8 - 7.0 10*3/uL [facility] Neutrophils/100 WBC (Bld) 85.2 % High 40.0 - 80.0 % [facility] Nucleated RBC/100 WBC (Bld) [Ratio] 0.1 % [facility] Platelet mean volume (Bld) [Entitic vol] 8.2 fL 7.4 - 12.4 fL [facility] Platelets (Bld) [#/Vol] 362 10*3/uL 140 - 440 10*3/uL [facility] RBC (Bld) [#/Vol] 4.56 10*6/uL [facility] WBC (Bld) [#/Vol] 12.8 10*3/uL High 3.6 - 10.7 10*3/uL [facility] CT Abdomen WO contraston 1. No acute abdominal or pelvic process to explain symptoms. Report Dictated on Electronically Signed By: Abner Palacio Electronically Signed Date/Time: 03/08/2023 2:14 PM EDT [facility] Patient Name: [...] evident. Osseous structures: Mild lumbar degenerative spondylosis. [facility] Abner Palacio, DO - 03/08/2023 Patient [...] Electronically Signed Date/Time: 03/08/2023 2:14 PM EDT [facility] Study observation (narrative) [facility] Abdomen WO contrastOrdere d By: Abner Palacio on 03-08-2023 [facility] Work Phone: Comprehensive metabolic 1998 panelon 03-08-2023 Albumin [Mass/Vol] 4.1 g/dL 3.5 - 5.0 g/dL [facility] ALP [Catalytic activity/Vol] 158 U/L High 38 - 126 U/L [facility] ALT [Catalytic activity/Vol] 41 U/L [facility] Anion gap [Moles/Vol] 8 mmol/L 3 - 13 mmol/L [facility] AST [Catalytic activity/Vol] 29 U/L 15 - 46 U/L [facility] Bilirubin [Mass/Vol] 0.5 mg/dL 0.2 - 1 .3 mg/dL [facility] Calcium [Mass/Vol] 8.5 mg/dL 8.4 - 10. 4 mg/dL [facility] Chloride [Moles/Vol] 102 mmol/L 98 - 10 7 mmol/L [facility] CO2 [Moles/Vol] 23 mmol/L 22 - 30 mmol/L [facility] Creatinine [Mass/Vol] 0.56 mg/dL [facility] GFR/1.73 sq M.predicted MDRD (S/P/Bld) [Vol rate/Area] - PINF [facility] Comment on above: Calculation based on the Chronic Kidney Disease Epidemiology Collaboration (CKD-EPI) equation refit without adjustment for race Glucose [Mass/Vol] 197 mg/dL High 70 - 100 mg/dL [facility] Interpretation and review of laboratory results Abnormal [facility] Potassium [Moles/Vol] 4.7 mmol/L 3.5 - 5.1 mmol/L [facility] Protein [Mass/Vol] 7.4 g/dL 6.3 - 8.2 g/dL [facility] Sodium [Moles/Vol] 133 mmol/L Low 135 - 145 mmol/L [facility] Urea nitrogen [Mass/Vol] 20 mg/dL [facility] Lipaseon 03-08-2023 Lipase [Catalytic activity/Vol] 45 U/L 23 - 300 U/L [facility] Lipase [Catalytic activity/V ol]on 03-08-2023 Interpretation and review of laboratory results Normal [facility] No Panel Informationon 03-08 [facility] POCT glucose meteron 023 Glucose [Mass/Vol] 167 mg/dL High 70 - 100 mg/dL [facility] Interpretation and review of laboratory results Abnormal [facility] Performed by: [facility], [address] [place] [id number] CLIA ID: [id number] [facility] Basophil percentageOrdered B y: Raj Caicedo on 01-13-2023 Cholesterol [Mass/Vol] 156 mg/dL <200 [facility] Comment on above: <200 mg/dL Desirable 200-240 mg/dL Borderline >240 mg/dL High Risk Triglyceride [Mass/Vol] 235 mg/dL <199 [facility] Comment on above: The drugs N-Acetylcy steine and Metamizole may falsely depress this assay.Serum Triglycerides Reference Interval Normal <150 mg/dL Borderline high 150 - 199 mg/dL High 200 - 499 mg/dL Very High > or = 500 mg/dL Serum or plasma cholesterol in HDL measurement (mass/volume)Ordered By: Raj Caicedo on 01-13-2023 Cholesterol in HDL [Mass/Vol] 37 mg/dL >40 [facility] Comment on above: The drugs N-Acetylcy steine and Metamizole may falsely depress this assay. Reference Range HDL <40 mg/dL Low HDL Cholesterol HDL >or= 60 mg/dL High HDL Cholesterol Serum or plasma cholesterol in VLDL measurement (mass/volume)Ordered By: Raj Caicedo on 01-13-2023 Cholesterol in VLDL [Mass/Vol] 47 mg/dL 5-40 [facility] Serum or plasma low density lipoprotein (LDL) cholesterol measurement (mass/volume)Ordered By: Raj Caicedo on 01-13-2023 Cholesterol in LDL [Mass/Vol] 72 mg/dL 0-130 [facility] Whole blood hemoglobin A1c/t otal hemoglobin ratio (mass fraction)Ordered By: Jared Guzman on 12-02-2022 HbA1c (Bld) [Mass fraction] 9.5 % 3.8-5.6 [facility] Comment on above: Normal < 5.7 % Predi abetic 5.7 - 6.4 % Diabetic >or= 6.5 % Please note range changes. Basophil percentageOrdered B y: Jared Guzman on 10-27-2022 Bilirubin [Mass/Vol] 0.30 mg/dL 0.20-1.00 [facility] Comment on above: For patients on eltr ombopag therapy, use of Dimension [place] TBIL is not recommended. Chloride [Moles/Vol] 104 mmol/L 98-107 [facility] Cholesterol [Mass/Vol] 150 mg/dL <200 [facility] Comment on above: <200 mg/dL Desirable 200-240 mg/dL Borderline >240 mg/dL High Risk Glucose [Mass/Vol] 217 mg/dL 74-106 [facility] Comment on above: Glucose result great er than or equal to 200 mg/dLsuggests DIABETES MELLITUS per A.D.A. criteria. Potassium [Moles/Vol] 4.9 mmol/L 3.5-5.1 [facility] Protein [Mass/Vol] 6.5 g/dL 6.4-8.2 [facility] Sodium [Moles/Vol] 136 mmol/L 136-145 [facility] Triglyceride [Mass/Vol] 197 mg/dL <199 [facility] Comment on above: The drugs N-Acetylcy steine and Metamizole may falsely depress this assay.Serum Triglycerides Reference Interval Normal <150 mg/dL Borderline high 150 - 199 mg/dL High 200 - 499 mg/dL Very High > or = 500 mg/dL WBC (Bld) [#/Vol] 7.5 10*3/uL 4.4-11.0 [facility] Blood erythrocytes count (nu mber/volume)Ordered By: Jared Guzman on 10-27-2022 RBC (Bld) [#/Vol] 4.03 10*6/uL 4.6-6.2 [facility] Blood hemoglobin measurement (mass/volume)Ordered By: Jared Guzman on 10-27-2022 Hemoglobin (Bld) [Mass/Vol] 11.3 g/dL 13.0-16.5 [facility] Blood platelet mean volumeOr dered By: Jared Guzman on 10-27-2022 Platelet mean volume (Bld) [Entitic vol] 10.1 fL 6.2-12.0 [facility] Determination of erythrocyte mean corpuscular volume (MCV)Ordered By: Jared Guzman on 10-27-2022 MCV (RBC) [Entitic vol] 89.3 fL 80-94 [facility] Hematocrit Auto (Bld) [Volum e fraction]Ordered By: Jared Guzman on 10-27-2022 Hematocrit (Bld) [Volume fraction] 36.0 % 40-54 [facility] Laboratory - Chemistry and C hemistry - challengeOrdered By: Jared Guzman on 10-27-2022 ALP [Catalytic activity/Vol] 179 U/L 45-117 [facility] ALT [Catalytic activity/Vol] 41 U/L 16-61 [facility] CO2 [Moles/Vol] 26.0 mmol/L 21.0-32.0 [facility] Globulin (S) [Mass/Vol] 3.4 g/dL 2.2-4.2 [facility] Urea nitrogen/Creatinine [Mass ratio] 27.7 mg/mg 10-20 [facility] Laboratory - Hematology and Cell countsOrdered By: Jared Guzman on 10-27-2022 Erythrocyte distribution width (RBC) [Entitic vol] 45.3 fL 35.1-43.9 [facility] Erythrocyte distribution width (RBC) [Ratio] 13.8 % 11.6-14.6 [facility] MCH (RBC) [Entitic mass] 28.0 pg 27.0-32.0 [facility] MCHC Auto (RBC) [Mass/Vol]Or dered By: Jared Guzman on 10-27-2022 MCHC (RBC) [Mass/Vol] 31.4 g/dL 32-36 [facility] No Panel InformationOrdered By: Jared Guzman on 10-27-2022 Estimated GFR (MDRD) Amer 123 mL/min >60 [facility] Comment on above: GFR Calc Estimated GFR (MDRD) Non-Af Amer 102 mL/min >60 [facility] Comment on above: Non- GFR Calc Platelets bldOrdered By: Mike Guzman on 10-27-2022 Platelets (Bld) [#/Vol] 343 10*3/uL 150-450 [facility] Serum or plasma albumin mauricio urement (mass/volume)Ordered By: Jared uGzman on 10-27-2022 Albumin [Mass/Vol] 3.1 g/dL 3.2-5.0 [facility] Serum or plasma albumin/glob ulin mass ratioOrdered By: Jared Guzman on 10-27-2022 Albumin/Globulin [Mass ratio] 0.9 {ratio} 0.9-2.4 [facility] Serum or plasma calcium mauricio urement (mass/volume)Ordered By: Jared Guzman on 10-27-2022 Calcium [Mass/Vol] 9.0 mg/dL 8.5-10.1 [facility] Serum or plasma cholesterol in HDL measurement (mass/volume)Ordered By: Jared Guzman on 10-27-2022 Cholesterol in HDL [Mass/Vol] 34 mg/dL >40 [facility] Comment on above: The drugs N-Acetylcy steine and Metamizole may falsely depress this assay. Reference Range HDL <40 mg/dL Low HDL Cholesterol HDL >or= 60 mg/dL High HDL Cholesterol Serum or plasma cholesterol in VLDL measurement (mass/volume)Ordered By: Jared Guzman on 10-27-2022 Cholesterol in VLDL [Mass/Vol] 39 mg/dL 5-40 [facility] Serum or plasma creatinine m easurement (mass/volume)Ordered By: Jared Guzman on 10-27-2022 Creatinine [Mass/Vol] 0.83 mg/dL 0.70-1.30 [facility] Comment on above: The validity of the calculated GFR & GFRAA in patients over 70 years has not been determined. Clinical correlation is essential. Serum or plasma low density lipoprotein (LDL) cholesterol measurement (mass/volume)Ordered By: Jared Guzman on 10-27-2022 Cholesterol in LDL [Mass/Vol] 77 mg/dL 0-130 [facility] Serum or plasma urea nitroge n measurement (mass/volume)Ordered By: Jared Guzman on 10-27-2022 Urea nitrogen [Mass/Vol] 23 mg/dL 7-18 [facility] Thin prep Papanicolaou smear with manual screeningOrdered By: Jared Guzman on 10-27-2022 Thin prep Papanicolaou smear with manual screening 16 U/L 15-37 [facility] Thin prep Papanicolaou smear with manual screening 6 5-15 [facility] Basophil percentageon 2021 Chloride [Moles/Vol] 105 mmol/L 98-107 [facility] Work Phone: Glucose [Mass/Vol] 188 mg/dL 74-106 [facility] Work Phone: Comment on above: Fasting Glucose resu lt greater than or equal to 126 mg/dL suggests DIABETES MELLITUS per A.D.A. criteria. Potassium [Moles/Vol] 5.1 mmol/L 3.5-5.1 [facility] Work Phone: Sodium [Moles/Vol] 134 mmol/L 136-145 [facility] Work Phone: WBC (Bld) [#/Vol] 9.0 10*3/uL 4.4-11.0 [facility] Work Phone: Blood erythrocytes count (nu mber/volume)on 06-24-2022 RBC (Bld) [#/Vol] 4.12 10*6/uL 4.6-6.2 [facility] Work [facility]: Blood hemoglobin measurement (mass/volume)on 06-24-2022 Hemoglobin (Bld) [Mass/Vol] 11.5 g/dL 13.0-16.5 [facility] Work Phone: Blood platelet mean volumeon 06-24-2022 Platelet mean volume (Bld) [Entitic vol] 10.7 fL 6.2-12.0 [facility] Work Phone: Determination of erythrocyte mean corpuscular volume (MCV)on 06-24-2022 MCV (RBC) [Entitic vol] 87.9 fL 80-94 [facility] Work Phone: Hematocrit Auto (Bld) [Volum e fraction]on 06-24-2022 Hematocrit (Bld) [Volume fraction] 36.2 % 40-54 [facility] Work Phone: Laboratory - Chemistry and C hemistry - challengeon 06-24-2022 CO2 [Moles/Vol] 22.0 mmol/L 21.0-32.0 [facility] Work Phone: Urea nitrogen/Creatinine [Mass ratio] 42.1 mg/mg 10-20 [facility] Work Phone: Laboratory - Hematology and Cell countson 06-24-2022 Erythrocyte distribution width (RBC) [Entitic vol] 45.2 fL 35.1-43.9 [facility] Work Phone: Erythrocyte distribution width (RBC) [Ratio] 14.1 % 11.6-14.6 [facility] Work Phone: MCH (RBC) [Entitic mass] 27.9 pg 27.0-32.0 [facility] Work Phone: MCHC Auto (RBC) [Mass/Vol]on 06-24-2022 MCHC (RBC) [Mass/Vol] 31.8 g/dL 32-36 [facility] Work Phone: No Panel Informationon 06-24 Estimated GFR (MDRD) Amer 119 mL/min >60 [facility] Work Phone: Comment on above: GFR Calc Estimated GFR (MDRD) Non-Af Amer 99 mL/min >60 [facility] Work Phone: Comment on above: Non- GFR Calc Platelets bldon 06-24-2022 Platelets (Bld) [#/Vol] 396 10*3/uL 150-450 [facility] Work Phone: Serum or plasma calcium mauricio urement (mass/volume)on 06-24-2022 Calcium [Mass/Vol] 9.1 mg/dL 8.5-10.1 [facility] Work Phone: Serum or plasma creatinine m easurement (mass/volume)on 06-24-2022 Creatinine [Mass/Vol] 0.86 mg/dL 0.70-1.30 [facility] Work Phone: Comment on above: The validity of the calculated GFR & GFRAA in patients over 70 years has not been determined. Clinical correlation is essential. Serum or plasma urea nitroge n measurement (mass/volume)on 06-24-2022 Urea nitrogen [Mass/Vol] 36 mg/dL 7-18 [facility] Work Phone: Thin prep Papanicolaou smear with manual screeningon 06-24-2022 Thin prep Papanicolaou smear with manual screening 7 5-15 [facility] Work Phone: Basophil percentageon 2021 Bilirubin [Mass/Vol] 0.20 mg/dL 0.20-1.00 [facility] Work Phone: Comment on above: For patients on eltr ombopag therapy, use of [employer] [place] TBIL is not recommended. Chloride [Moles/Vol] 104 mmol/L 98-107 [facility] Work Phone: Glucose [Mass/Vol] 299 mg/dL 74-106 [facility] Work Phone: Comment on above: Glucose result great er than or equal to 200 mg/dLsuggests DIABETES MELLITUS per A.D.A. criteria. Potassium [Moles/Vol] 5.0 mmol/L 3.5-5.1 [facility] Work Phone: Protein [Mass/Vol] 6.7 g/dL 6.4-8.2 [facility] Work Phone: Sodium [Moles/Vol] 135 mmol/L 136-145 [facility] Work Phone: WBC (Bld) [#/Vol] 7.9 10*3/uL 4.4-11.0 [facility] Work Phone: Blood erythrocytes count (nu mber/volume)on 05-25-2022 RBC (Bld) [#/Vol] 3.86 10*6/uL 4.6-6.2 [facility] Work Phone: Blood hemoglobin measurement (mass/volume)on 05-25-2022 Hemoglobin (Bld) [Mass/Vol] 10.5 g/dL 13.0-16.5 [facility] Work Phone: Blood platelet mean volumeon 05-25-2022 Platelet mean volume (Bld) [Entitic vol] 10.5 fL 6.2-12.0 [facility] Work Phone: Determination of erythrocyte mean corpuscular volume (MCV)on 05-25-2022 MCV (RBC) [Entitic vol] 88.1 fL 80-94 [facility] Work Phone: Hematocrit Auto (Bld) [Volum e fraction]on 05-25-2022 Hematocrit (Bld) [Volume fraction] 34.0 % 40-54 [facility] Work Phone: Laboratory - Chemistry and C hemistry - challengeon 05-25-2022 ALP [Catalytic activity/Vol] 187 U/L 45-117 [facility] Work Phone: ALT [Catalytic activity/Vol] 37 U/L 16-61 [facility] Work Phone: CO2 [Moles/Vol] 25.0 mmol/L 21.0-32.0 [facility] Work Phone: Globulin (S) [Mass/Vol] 3.8 g/dL 2.2-4.2 [facility] Work Phone: Urea nitrogen/Creatinine [Mass ratio] 27.5 mg/mg 10-20 [facility] Work Phone: Laboratory - Hematology and Cell countson 05-25-2022 Erythrocyte distribution width (RBC) [Entitic vol] 45.1 fL 35.1-43.9 [facility] Work Phone: Erythrocyte distribution width (RBC) [Ratio] 14.1 % 11.6-14.6 [facility] Work Phone: MCH (RBC) [Entitic mass] 27.2 pg 27.0-32.0 [facility] Work Phone: MCHC Auto (RBC) [Mass/Vol]on 05-25-2022 MCHC (RBC) [Mass/Vol] 30.9 g/dL 32-36 [facility] Work Phone: [phone] No Panel Informationon 05-25 Estimated GFR (MDRD) Amer 123 mL/min >60 [facility] Work Phone: Comment on above: GFR Calc Estimated GFR (MDRD) Non-Af Amer 101 mL/min >60 [facility] Work Phone: Comment on above: Non- GFR Calc Platelets bldon 05-25-2022 Platelets (Bld) [#/Vol] 320 10*3/uL 150-450 [facility] Work Phone: Serum or plasma albumin mauricio urement (mass/volume)on 05-25-2022 Albumin [Mass/Vol] 2.9 g/dL 3.2-5.0 [facility] Work Phone: Serum or plasma albumin/glob ulin mass ratioon 05-25-2022 Albumin/Globulin [Mass ratio] 0.8 {ratio} 0.9-2.4 [facility] Work Phone: Serum or plasma calcium mauricio urement (mass/volume)on 05-25-2022 Calcium [Mass/Vol] 9.0 mg/dL 8.5-10.1 [facility] Work Phone: Serum or plasma creatinine m easurement (mass/volume)on 05-25-2022 Creatinine [Mass/Vol] 0.84 mg/dL 0.70-1.30 [facility] Work Phone: Comment on above: The validity of the calculated GFR & GFRAA in patients over 70 years has not been determined. Clinical correlation is essential. Serum or plasma urea nitroge n measurement (mass/volume)on 05-25-2022 Urea nitrogen [Mass/Vol] 23 mg/dL 7-18 [facility] Work Phone: Thin prep Papanicolaou smear with manual screeningon 05-25-2022 Thin prep Papanicolaou smear with manual screening 14 U/L 15-37 [facility] Work Phone: Thin prep Papanicolaou smear with manual screening 6 5-15 [facility] Work Phone: Basophil percentageon 2021 Cholesterol [Mass/Vol] 135 mg/dL <200 [facility] Work Phone: Comment on above: <200 mg/dL Desirable 200-240 mg/dL Borderline >240 mg/dL High Risk Triglyceride [Mass/Vol] 183 mg/dL <199 [facility] Work Phone: Comment on above: The drugs N-Acetylcy steine and Metamizole may falsely depress this assay.Serum Triglycerides Reference Interval Normal <150 mg/dL Borderline high 150 - 199 mg/dL High 200 - 499 mg/dL Very High > or = 500 mg/dL Serum or plasma cholesterol in HDL measurement (mass/volume)on 04-27-2022 Cholesterol in HDL [Mass/Vol] 35 mg/dL >40 [facility] Work Phone: Comment on above: The drugs N-Acetylcy steine and Metamizole may falsely depress this assay. Reference Range HDL <40 mg/dL Low HDL Cholesterol HDL >or= 60 mg/dL High HDL Cholesterol Serum or plasma cholesterol in VLDL measurement (mass/volume)on 04-27-2022 Cholesterol in VLDL [Mass/Vol] 37 mg/dL 5-40 [facility] Work Phone: Serum or plasma low density lipoprotein (LDL) cholesterol measurement (mass/volume)on 04-27-2022 Cholesterol in LDL [Mass/Vol] 63 mg/dL 0-130 [facility] Work Phone: Basophil percentageon 2021 Bilirubin [Mass/Vol] 0.30 mg/dL 0.20-1.00 [facility] Work Phone: Comment on above: For patients on eltr ombopag therapy, use of [employer] [place] TBIL is not recommended. Chloride [Moles/Vol] 105 mmol/L 98-107 [facility] Work Phone: Glucose [Mass/Vol] 260 mg/dL 74-106 [facility] Work Phone: Comment on above: Glucose result great er than or equal to 200 mg/dLsuggests DIABETES MELLITUS per A.D.A. criteria. Potassium [Moles/Vol] 4.7 mmol/L 3.5-5.1 [facility] Work Phone: Protein [Mass/Vol] 6.8 g/dL 6.4-8.2 [facility] Work Phone: Sodium [Moles/Vol] 134 mmol/L 136-145 [facility] Work Phone: WBC (Bld) [#/Vol] 8.9 10*3/uL 4.4-11.0 [facility] Work Phone: Blood erythrocytes count (nu mber/volume)on 04-13-2022 RBC (Bld) [#/Vol] 3.91 10*6/uL 4.6-6.2 [facility] Work Phone: Blood hemoglobin measurement (mass/volume)on 04-13-2022 Hemoglobin (Bld) [Mass/Vol] 11.0 g/dL 13.0-16.5 [facility] Work Phone: Blood platelet mean volumeon 04-13-2022 Platelet mean volume (Bld) [Entitic vol] 10.3 fL 6.2-12.0 [facility] Work Phone: Determination of erythrocyte mean corpuscular volume (MCV)on 04-13-2022 MCV (RBC) [Entitic vol] 87.7 fL 80-94 [facility] Work Phone: Hematocrit Auto (Bld) [Volum e fraction]on 04-13-2022 Hematocrit (Bld) [Volume fraction] 34.3 % 40-54 [facility] Work Phone: Laboratory - Chemistry and C hemistry - challengeon 04-13-2022 ALP [Catalytic activity/Vol] 189 U/L 45-117 [facility] [facility] ALT [Catalytic activity/Vol] 43 U/L 16-61 [facility] Work Phone: CO2 [Moles/Vol] 23.0 mmol/L 21.0-32.0 [facility] Work Phone: Globulin (S) [Mass/Vol] 3.6 g/dL 2.2-4.2 [facility] Work Phone: Urea nitrogen/Creatinine [Mass ratio] 34.9 mg/mg 10-20 [facility] Work Phone: Laboratory - Hematology and Cell countson 04-13-2022 Erythrocyte distribution width (RBC) [Entitic vol] 42.3 fL 35.1-43.9 [facility] Work Phone: Erythrocyte distribution width (RBC) [Ratio] 13.2 % 11.6-14.6 [facility] Work Phone: MCH (RBC) [Entitic mass] 28.1 pg 27.0-32.0 [facility] Work Phone: MCHC Auto (RBC) [Mass/Vol]on 04-13-2022 MCHC (RBC) [Mass/Vol] 32.1 g/dL 32-36 [facility] Work Phone: No Panel Informationon 04-13 Estimated GFR (MDRD) Amer 134 mL/min >60 [facility] Work Phone: Comment on above: GFR Calc Estimated GFR (MDRD) Non-Af Amer 111 mL/min >60 [facility] Work Phone: Comment on above: Non- GFR Calc Platelets bldon 04-13-2022 Platelets (Bld) [#/Vol] 310 10*3/uL 150-450 [facility] Work Phone: Serum or plasma albumin mauricio urement (mass/volume)on 04-13-2022 Albumin [Mass/Vol] 3.2 g/dL 3.2-5.0 [facility] Work Phone: Serum or plasma albumin/glob ulin mass ratioon 04-13-2022 Albumin/Globulin [Mass ratio] 0.9 {ratio} 0.9-2.4 [facility] Work Phone: Serum or plasma calcium mauricio urement (mass/volume)on 04-13-2022 Calcium [Mass/Vol] 9.1 mg/dL 8.5-10.1 [facility] Work Phone: Serum or plasma creatinine m easurement (mass/volume)on 04-13-2022 Creatinine [Mass/Vol] 0.77 mg/dL 0.70-1.30 [facility] Work Phone: Comment on above: The validity of the calculated GFR & GFRAA in patients over 70 years has not been determined. Clinical correlation is essential. Serum or plasma urea nitroge n measurement (mass/volume)on 04-13-2022 Urea nitrogen [Mass/Vol] 27 mg/dL 7-18 [facility] Work Phone: Thin prep Papanicolaou smear with manual screeningon 04-13-2022 Thin prep Papanicolaou smear with manual screening 16 U/L 15-37 [facility] Work Phone: Thin prep Papanicolaou smear with manual screening 6 5-15 [facility] Work Phone: Basophil percentageon 2021 Chloride [Moles/Vol] 105 mmol/L 98-107 [facility] Work Phone: Glucose [Mass/Vol] 284 mg/dL 74-106 [facility] Work Phone: Comment on above: Glucose result great er than or equal to 200 mg/dLsuggests DIABETES MELLITUS per A.D.A. criteria. Potassium [Moles/Vol] 4.6 mmol/L 3.5-5.1 [facility] Work Phone: Sodium [Moles/Vol] 134 mmol/L 136-145 [facility] Work Phone: WBC (Bld) [#/Vol] 7.7 10*3/uL 4.4-11.0 [facility] Work Phone: Blood erythrocytes count (nu mber/volume)on 03-02-2022 RBC (Bld) [#/Vol] 3.83 10*6/uL 4.6-6.2 [facility] Work Phone: Blood hemoglobin measurement (mass/volume)on 03-02-2022 Hemoglobin (Bld) [Mass/Vol] 10.7 g/dL 13.0-16.5 [facility] Work Phone: Blood platelet mean volumeon 03-02-2022 Platelet mean volume (Bld) [Entitic vol] 10.6 fL 6.2-12.0 [facility] Work Phone: Determination of erythrocyte mean corpuscular volume (MCV)on 03-02-2022 MCV (RBC) [Entitic vol] 90.1 fL 80-94 [facility] Work Phone: Hematocrit Auto (Bld) [Volum e fraction]on 03-02-2022 Hematocrit (Bld) [Volume fraction] 34.5 % 40-54 [facility] Work Phone: Laboratory - Chemistry and C hemistry - challengeon 03-02-2022 CO2 [Moles/Vol] 22.0 mmol/L 21.0-32.0 [facility] Work Phone: Urea nitrogen/Creatinine [Mass ratio] 31.8 mg/mg 10-20 [facility] Work Phone: Laboratory - Hematology and Cell countson 03-02-2022 Erythrocyte distribution width (RBC) [Entitic vol] 44.5 fL 35.1-43.9 [facility] Work Phone: Erythrocyte distribution width (RBC) [Ratio] 13.5 % 11.6-14.6 [facility] Work Phone: MCH (RBC) [Entitic mass] 27.9 pg 27.0-32.0 [facility] Work Phone: MCHC Auto (RBC) [Mass/Vol]on 03-02-2022 MCHC (RBC) [Mass/Vol] 31.0 g/dL 32-36 [facility] Work Phone: No Panel Informationon 03-02 Estimated GFR (MDRD) Amer 132 mL/min >60 [facility] Work Phone: Comment on above: GFR Calc Estimated GFR (MDRD) Non-Af Amer 109 mL/min >60 [facility] Work Phone: Comment on above: Non- GFR Calc Platelets bldon 03-02-2022 Platelets (Bld) [#/Vol] 310 10*3/uL 150-450 [facility] Work Phone: Serum or plasma calcium mauricio urement (mass/volume)on 03-02-2022 Calcium [Mass/Vol] 9.0 mg/dL 8.5-10.1 [facility] Work Phone: Serum or plasma creatinine m easurement (mass/volume)on 03-02-2022 Creatinine [Mass/Vol] 0.79 mg/dL 0.70-1.30 [facility] Work Phone: Comment on above: The validity of the calculated GFR & GFRAA in patients over 70 years has not been determined. Clinical correlation is essential. Serum or plasma urea nitroge n measurement (mass/volume)on 03-02-2022 Urea nitrogen [Mass/Vol] 25 mg/dL 7-18 [facility] Work Phone: Thin prep Papanicolaou smear with manual screeningon 03-02-2022 Thin prep Papanicolaou smear with manual screening 7 5-15 [facility] Work Phone: Basophil percentageon 2021 Bilirubin [Mass/Vol] 0.30 mg/dL 0.20-1.00 [facility] Work Phone: Comment on above: For patients on eltr ombopag therapy, use of Dimension [place] TBIL is not recommended. Chloride [Moles/Vol] 103 mmol/L 98-107 [facility] Work Phone: Glucose [Mass/Vol] 334 mg/dL 74-106 [facility] Work Phone: Comment on above: Glucose result great er than or equal to 200 mg/dLsuggests DIABETES MELLITUS per A.D.A. criteria. Potassium [Moles/Vol] 5.0 mmol/L 3.5-5.1 [facility] Work Phone: Protein [Mass/Vol] 6.8 g/dL 6.4-8.2 [facility] Work Phone: Sodium [Moles/Vol] 135 mmol/L 136-145 [facility] Work Phone: WBC (Bld) [#/Vol] 7.0 10*3/uL 4.4-11.0 [facility] Work Phone: Blood erythrocytes count (nu mber/volume)on 01-29-2022 RBC (Bld) [#/Vol] 3.91 10*6/uL 4.6-6.2 [facility] Work Phone: Blood hemoglobin measurement (mass/volume)on 01-29-2022 Hemoglobin (Bld) [Mass/Vol] 10.9 g/dL 13.0-16.5 [facility] Work Phone: Blood platelet mean volumeon 01-29-2022 Platelet mean volume (Bld) [Entitic vol] 10.9 fL 6.2-12.0 [facility] Work Phone: Determination of erythrocyte mean corpuscular volume (MCV)on 01-29-2022 MCV (RBC) [Entitic vol] 89.8 fL 80-94 [facility] Work Phone: Hematocrit Auto (Bld) [Volum e fraction]on 01-29-2022 Hematocrit (Bld) [Volume fraction] 35.1 % 40-54 [facility] Work Phone: Laboratory - Chemistry and C hemistry - challengeon 01-29-2022 ALP [Catalytic activity/Vol] 194 U/L 45-117 [facility] Work Phone: ALT [Catalytic activity/Vol] 38 U/L 16-61 [facility] Work Phone: CO2 [Moles/Vol] 27.0 mmol/L 21.0-32.0 [facility] Work Phone: Globulin (S) [Mass/Vol] 3.5 g/dL 2.2-4.2 [facility] Work Phone: Urea nitrogen/Creatinine [Mass ratio] 20.6 mg/mg 10-20 [facility] Work Phone: Laboratory - Hematology and Cell countson 01-29-2022 Erythrocyte distribution width (RBC) [Entitic vol] 43.8 fL 35.1-43.9 [facility] Work Phone: Erythrocyte distribution width (RBC) [Ratio] 13.3 % 11.6-14.6 [facility] Work Phone: MCH (RBC) [Entitic mass] 27.9 pg 27.0-32.0 [facility] Work Phone: MCHC Auto (RBC) [Mass/Vol]on 01-29-2022 MCHC (RBC) [Mass/Vol] 31.1 g/dL 32-36 [facility] Work Phone: No Panel Informationon 01-29 Estimated GFR (MDRD) Amer 117 mL/min >60 [facility] Work Phone: Comment on above: GFR Calc Estimated GFR (MDRD) Non-Af Amer 97 mL/min >60 [facility] Work Phone: Comment on above: Non- GFR Calc Platelets bldon 01-29-2022 Platelets (Bld) [#/Vol] 306 10*3/uL 150-450 [facility] Work Phone: Serum or plasma albumin mauricio urement (mass/volume)on 01-29-2022 Albumin [Mass/Vol] 3.3 g/dL 3.2-5.0 [facility] Work Phone: Serum or plasma albumin/glob ulin mass ratioon 01-29-2022 Albumin/Globulin [Mass ratio] 0.9 {ratio} 0.9-2.4 [facility] Work Phone: Serum or plasma calcium mauricio urement (mass/volume)on 01-29-2022 Calcium [Mass/Vol] 8.8 mg/dL 8.5-10.1 [facility] Work Phone: Serum or plasma creatinine m easurement (mass/volume)on 01-29-2022 Creatinine [Mass/Vol] 0.87 mg/dL 0.70-1.30 [facility] Work Phone: Comment on above: The validity of the calculated GFR & GFRAA in patients over 70 years has not been determined. Clinical correlation is essential. Serum or plasma urea nitroge n measurement (mass/volume)on 01-29-2022 Urea nitrogen [Mass/Vol] 18 mg/dL 7-18 [facility] Work Phone: Thin prep Papanicolaou smear with manual screeningon 01-29-2022 Thin prep Papanicolaou smear with manual screening 11 U/L 15-37 [facility] Work Phone: Thin prep Papanicolaou smear with manual screening 5 5-15 [facility] Work Phone: Whole blood hemoglobin A1c/t otal hemoglobin ratio (mass fraction)on 01-29-2022 HbA1c (Bld) [Mass fraction] 8.8 % 3.8-5.6 [facility] Work Phone: Comment on above: Normal < 5.7 % Predi abetic 5.7 - 6.4 % Diabetic >or= 6.5 % Please note range changes. Basophil percentageon 2021 Cholesterol [Mass/Vol] 169 mg/dL <[address] [facility] Work Phone: Comment on above: <200 mg/dL Desirable 200-240 mg/dL Borderline >240 mg/dL High Risk Triglyceride [Mass/Vol] 177 mg/dL <199 [facility] Work Phone: Comment on above: The drugs N-Acetylcy steine and Metamizole may falsely depress this assay.Serum Triglycerides Reference Interval Normal <150 mg/dL Borderline high 150 - 199 mg/dL High 200 - 499 mg/dL Very High > or = 500 mg/dL Serum or plasma cholesterol in HDL measurement (mass/volume)on 01-19-2022 Cholesterol in HDL [Mass/Vol] 35 mg/dL >40 [facility] Work Phone: Comment on above: The drugs N-Acetylcy steine and Metamizole may falsely depress this assay. Reference Range HDL <40 mg/dL Low HDL Cholesterol HDL >or= 60 mg/dL High HDL Cholesterol Serum or plasma cholesterol in VLDL measurement (mass/volume)on 01-19-2022 Cholesterol in VLDL [Mass/Vol] 35 mg/dL 5-40 [facility] Work Phone: Serum or plasma low density lipoprotein (LDL) cholesterol measurement (mass/volume)on 01-19-2022 Cholesterol in LDL [Mass/Vol] 99 mg/dL 0-130 [facility] Work Phone: Basic Metabolic Panelon 12-09 Calcium [Mass/Vol] 9.4 mg/dL Normal 8.4-10.4 [facility] Comment on above: Performed By: #### B MP3, HGHCT #### [facility] [address] [place] [address] Glucose [Mass/Vol] 119 mg/dL High 70-100 [facility] Comment on above: Performed By: #### B MP3, HGHCT #### [facility] [address] [place] [address] Urea nitrogen [Mass/Vol] 19 mg/dL Normal 9-20 [facility] Comment on above: Performed By: #### B MP3, HGHCT #### [facility] [address] [place] [address] Anion gap [Moles/Vol] 8 mmol/L Normal 3-13 [facility] Comment on above: Performed By: #### B MP3, HGHCT #### [facility] [address] [place] [address] CO2 [Moles/Vol] 25 mmol/L Normal 22-30 [facility] Comment on above: Performed By: #### B MP3, HGHCT #### [facility] [address] [place] [address] Creatinine [Mass/Vol] 0.73 mg/dL Normal 0.52-1.25 [facility] Comment on above: Performed By: #### B MP3, HGHCT #### [facility] [address] [place] [address] eGFR OTHER > 90.0 Normal >60 [facility] Comment on above: Result Comment: KDIG [...] #### B MP3, HGHCT #### [facility] [address] [place] [address] GFR/1.73 sq M.predicted among blacks MDRD (S/P/Bld) [Vol rate/Area] mL/min/{1.73_m2} Normal >60 [facility] Comment on above: Performed By: #### B MP3, HGHCT #### [facility] [address] [place] [address] Potassium [Moles/Vol] 4.6 mmol/L Normal 3.5-5.1 [facility] Comment on above: Performed By: #### B MP3, HGHCT #### [facility] [address] [place] [address] Chloride [Moles/Vol] 105 mmol/L Normal 98-107 [facility] Comment on above: Performed By: #### B MP3, HGHCT #### [facility] [address] [place] [address] Sodium [Moles/Vol] 137 mmol/L Normal 135-145 [facility] Comment on above: Performed By: #### B MP3, HGHCT #### [facility] [address] [place] [address] Glucose,Bedsideon 12-23-2021 Glucose [Mass/Vol] 122 mg/dL High 70-100 [facility] Comment on above: Result Comment: Test performed by glucose meter. Results may be 10%-15% lower than serum/plasma values. (CLIA ID [id number]) Performed By: #### B GLU #### [facility] [address] [place] [address] Glucose [Mass/Vol] 107 mg/dL High 70-100 [facility] Comment on above: Result Comment: Test performed by glucose meter. Results may be 10%-15% lower than serum/plasma values. (CLIA ID [id number]) Performed By: #### B GLU #### [facility] [address] [place] [address] Hemoglobin AND Hematocriton 12-23-2021 Hematocrit (Bld) [Volume fraction] 35.7 % Normal 35.0-47.0 [facility] Comment on above: Performed By: #### B MP3, HGHCT #### [facility] [address] [place] [address] Hemoglobin (Bld) [Mass/Vol] 11.8 g/dL Normal 11.7-16.0 [facility] Comment on above: Performed By: #### B MP3, HGHCT #### [facility] [address] [place] [address] Op Noteon 12-23-2021 Op Note Operative Note Patient: Will Jacinto Date of : 1965 Date of Procedure: 12/23/21 Pre-Op Diagnosis: endometrial hyperplasia Post-Op Diagnosis: Same D&C/hysteroscopy Regional [employer] Manager: * Surgery not found * Anesthesia: [...] curetted and specimen sent. Procedure terminated. Normal [facility] Surgical Pathologyon 022 Surgical Pathology [id number] [facility] DEPARTMENT OF [facility] PATHOLOGY AND LABORATORY MEDICINE [address] [facility] [place] [address] Fax - FINAL SURGICAL PATHOLOGY REPORT NAME: WILL JACINTO N [id number] : 1965 56 Y F [facility] NO[facility] [id number] LOCATION: [place] [address] PROCEDURE 12/23/2021 DATE: SURGEON: MICHAEL CUNNINGHAM M.D. [...] 0.4 cm. All submitted in one cassette. [facility] Disclaimer: The following statement applies to all immunohistochemistry, in situ hybridization, molecular studies, and immunofluorescence testing. The use of one or more reagents in the above tests is regulated as an analyte specific reagent (ASR). These tests were developed and their performance characteristics determined by the clinical laboratories of [facility]. They have not been cleared by [...] negativity on decalcified specimens. Case reviewed at [place] [address] [place] [address]. DEPARTMENT OF PATHOLOGY AND LABORATORY MEDICINE [place], [place] [address] [email or web address] Normal [facility] Comprehensive Metabolic Pane gigi 12-08-2020 Albumin [Mass/Vol] 4.0 g/dL 3.5 - 5 g/dL [place], [place] ALP [Catalytic activity/Vol] 121 U/L 38 - 126 U/L [place] ALT [Catalytic activity/Vol] 47 U/L High 0 - 34 U/L [place] Comment on above: The ALT test is perf ormed by an updated assay method. Please note that the reference intervals have been changed and are now sex specific. Anion gap [Moles/Vol] 6 mmol/L [place], [place] AST [Catalytic activity/Vol] 25 U/L 15 - 46 U/L [place] Bilirubin Ql (U) 0.6 mg/dL 0.2 - 1.3 mg/dL [place] Calcium [Mass/Vol] 9.7 mg/dL 8.4 - 10. 4 mg/dL [place] Chloride [Moles/Vol] 95 mmol/L Low 98 - 10 7 mmol/L [place] CO2 [Moles/Vol] 30 mmol/L 22 - 30 mmol/L [place] Creatinine [Mass/Vol] 0.64 mg/dL 0.52 - 1.25 mg/dL [place] EGFR IF NonAfrican [place] >90.0 >60 mL/min [place] Comment on above: KDIGO guidelines pro [...] MDRD (S/P/Bld) [Vol rate/Area] mL/min/{1.73_m2} >60 mL/min [place] Glucose [Mass/Vol] 248 mg/dL High 70 - 100 mg/dL [place] Interpretation and review of laboratory results Abnormal [place] Potassium [Moles/Vol] 4.7 mmol/L 3.5 - 5.1 mmol/L [place] Protein [Mass/Vol] 6.8 g/dL 6.3 - 8.2 g/dL [place] Sodium [Moles/Vol] 132 mmol/L Low 135 - 145 mmol/L [place] Urea nitrogen [Mass/Vol] 12 mg/dL 7 - 20 mg/dL [place] Hemogram (CBC) w/Auto Diffon 12-08-2020 Absolute Baso # 0.1 10*3/uL 0 - 0.2 10*3/uL [place] Absolute Neut # 6.1 10*3/uL 1.8 - 7 10*3/uL [place] Basophils/100 WBC (Bld) 0.8 % 0 - 2 % [place], [place] Eosinophils (Bld) [#/Vol] 0.1 10*3/uL 0 - 0.5 10*3/uL [place] Eosinophils/100 WBC (Bld) 1.0 % 1 - 6 % [place] Erythrocyte distribution width (RBC) [Ratio] 15.7 % High 11.5 - 14.5 % [place] Granulocytes/100 WBC (Bld) 73.2 % 40 - 80 % [place] Hematocrit (Bld) [Volume fraction] 37.0 % 35 - 47 % [place] Hemoglobin (Bld) [Mass/Vol] 12.3 g/dL 11.7 - 16 g/dL [place] Interpretation and review of laboratory results Abnormal [place] Lymphocytes (Bld) [#/Vol] 1.5 10*3/uL 1 - 4.3 10*3/uL [place] Lymphocytes/100 WBC (Bld) 18.0 % Low 20 - 40 % [place] MCH (RBC) [Entitic mass] 28.6 pg 26 - 34 pg [place] MCHC (RBC) [Mass/Vol] 33.3 % 32 - 36 % [place] MCV (RBC) [Entitic vol] 85.8 fL 79 - 98 fL [place], [place] Monocytes (Bld) [#/Vol] 0.6 10*3/uL 0 - 0.8 10*3/uL [place] Monocytes/100 WBC (Bld) 7.0 % 2 - 10 % [place] Platelet mean volume (Bld) [Entitic vol] 7.9 fL 7.4 - 10.4 fL [place] Platelets (Bld) [#/Vol] 382 10*3/uL 140 - 440 10*3/uL [place] RBC (Bld) [#/Vol] 4.32 10*6/uL 3.8 - 5.2 10*6/uL [place] WBC (Bld) [#/Vol] 8.4 10*3/uL 3.6 - 10.7 10*3/uL [place] Test Performed by [facility], [address] [place] [address] Lipaseon 12-08-2020 Lipase [Catalytic activity/Vol] 45 U/L 23 - 300 U/L [place] Otheron 12-08-2020 Test Performed by [facility], [address] [place], [address] Troponinon 12-08-2020 Troponin I.cardiac [Mass/Vol] ng/mL 0 - 0.034 ng/mL [place] Comment on above: . Test Performed by [facility], [address] [place] [address] US ABDOMEN LIMITED Specify o rgan? GALLBLADDERon 12-08-2020 [facility], [facility] Incoming Radiology Results From [facility] - 12/08/2020 4:26 PM EST Patient Name: WILL JACINTO Ultrasound ACCESSION EXAM DATE/TIME PROCEDURE ORDERING PROVIDER [id number] 12/08/2020 16:22 EST US Abdomen Limited [id number] SHEIKH CPT code 22653 Reason For Exam (US Abdomen Limited) abd [...] MALAY Transcribed Date and Time: 12/08/2020 4:26 [place], [place] Patient Name: WILL ALVARADO Ultrasound ACCESSION EXAM DATE/TIME PROCEDURE ORDERING PROVIDER [id number] 12/08/2020 16:22 EST US Abdomen Limited [id number] DURHAM CPT code 32438 Reason For Exam (US Abdomen Limited) abd [...] MALAY Transcribed Date and Time: 12/08/2020 4:26 [place] Urinalysison 12-08-2020 Appearance (U) Turbid Abnormal Clear NA [place] Comment on above: . Bacteria, UA Moderate Abnormal Negative /[HPF] [place] Comment on above: . Bilirubin Urine Negative Negative mg/dL [place] Comment on above: . Color (U) Yellow Lt. Yellow NA [place] Comment on above: . Glucose, Ur 500 mg/dL Abnormal Normal (<70) [place] Comment on above: . Hyaline Casts, UA 3-5 Abnormal Negative /[LPF] [place] Comment on above: . Interpretation and review of laboratory results Abnormal [place] Ketones Ql (U) Negative Negative mg/dL [place] Comment on above: . LEUKOCYTES, UA 250 Abnormal Negative Kat/uL [place] Comment on above: . Mucous Threads Few Negative /[LPF] [place] Comment on above: . Nitrite, Urine Negative Negative NA [place] Comment on above: . Occult Blood,Urine 1.0 mg/dL Abnormal Negative [place] Comment on above: . pH (U) 7.0 [pH] [place] Comment on above: . Protein (U) [Mass/Vol] 50 mg/dL Abnormal Negative [place] Comment on above: . RBC (U) [#/Vol] /uL Abnormal 0 - 2 /[HPF] [place] Comment on above: . Specific Platter, Urine 1.022 [place] Comment on above: . Squam Epithel, UA 3-5 3 - 5 /[HPF] [place] Comment on above: . Urobilinogen, Urine 4 mg/dL Abnormal Normal (0-1) [place] Comment on above: . WBC, UA 51-100 Abnormal 0 - 5 /[HPF] [place] Comment on above: . Test Performed by [facility], [address] [place], [place] [address] Urine microscopic confirmed via light microscopy. [place] XR CHEST PORTABLEon 12-08-19 Patient Name: WILL ALVARADO Diagnostic Radiology ACCESSION EXAM DATE/TIME PROCEDURE ORDERING PROVIDER [id number] 12/08/2020 16:00 EST CR Chest Portable [id number] ART BROOKS CPT code 70981 Reason For Exam (CR Chest Portable) chest [...] RACHEL Transcribed Date and Time: 12/08/2020 4:22 [facility], [place] Nati Jones Incoming Radiology Results From [facility] - 12/08/2020 4:22 PM EST Patient Name: WILL JACINTO Diagnostic Radiology ACCESSION EXAM DATE/TIME PROCEDURE ORDERING PROVIDER [id number] 12/08/2020 16:00 EST CR Chest Portable [id number] SHEIKH CPT code 12288 Reason For Exam (CR Chest Portable) chest [...] RACHEL Transcribed Date and Time: 12/08/2020 4:22 [facility], [place] CR Abdomen APon 11-28-2020 CR Abdomen AP Patient Name: WILL ALVARADO Diagnostic Radiology ACCESSION EXAM DATE/TIME PROCEDURE ORDERING PROVIDER [id number] 11/28/2020 09:00 EST CR Abdomen AP MD JD, CHAU CPT code 09845 Reason For Exam (CR Abdomen AP) ileus [...] and Time: 11/28/2020 9:25 Normal [facility] Comp Metabolic Panelon 11-28 ALT [Catalytic activity/Vol] 30 U/L Normal 0-34 [facility] Comment on above: Result Comment: The ALT test is performed by an updated assay method. Please note that the reference intervals have been changed and are now sex specific. Performed By: #### C MP3 #### [facility] [address] [place], [place] Calcium [Mass/Vol] 8.7 mg/dL Normal 8.4-10.4 [facility] Comment on above: Performed By: #### C MP3 #### [facility] [address] [place], [place] Glucose [Mass/Vol] 100 mg/dL Normal 70-100 [facility] Comment on above: Performed By: #### C MP3 #### [facility] [address] [place], [place] ALP [Catalytic activity/Vol] 77 U/L Normal 38-126 [facility] Comment on above: Result Comment: Slig htly hemolysed, interpret with caution. Performed By: #### C MP3 #### [facility] [address], [place] Anion gap [Moles/Vol] 5 Normal [facility] Comment on above: Performed By: #### C MP3 #### [facility] [address] [place] AST [Catalytic activity/Vol] 26 U/L Normal 15-46 [facility] Comment on above: Result Comment: Slig htly hemolysed, interpret with caution. Performed By: #### C MP3 #### [facility] [address] [place], [place] Bilirubin [Mass/Vol] 0.6 mg/dL Normal 0.2-1.3 [facility] Comment on above: Performed By: #### C MP3 #### [facility] [address] [place], [place] CO2 [Moles/Vol] 25 mmol/L Normal 22-30 [facility] Comment on above: Performed By: #### C MP3 #### [address] [address] [place], [place] Creatinine [Mass/Vol] 0.66 mg/dL Normal 0.52-1.25 [facility] Comment on above: Performed By: #### C MP3 #### [address] [address] [place], [place] GFR/1.73 sq M predicted among blacks MDRD (S/P/Bld) [Vol rate/Area] mL/min/{1.73_m2} Normal >60 [facility] Comment on above: Performed By: #### C MP3 #### [address] [address] [place], [place] GFR/1.73 sq M predicted among non-blacks MDRD (S/P/Bld) [Vol rate/Area] mL/min/{1.73_m2} Normal >60 [facility] Comment on above: Result Comment: KDIG [...] secretion. Performed By: #### C MP3 #### [address] [address] [place], [place] Protein [Mass/Vol] 6.0 g/dL Low 6.3-8.2 [facility] Comment on above: Performed By: #### C MP3 #### [address] [address] [place], [place] Urea nitrogen [Mass/Vol] 10 mg/dL Normal 7-20 [facility] Comment on above: Performed By: #### C MP3 #### [facility] [address] [place], [place] Potassium [Moles/Vol] 4.3 mmol/L Normal 3.5-5.1 [facility] Comment on above: Result Comment: Slig htly hemolysed, interpret with caution. Performed By: #### C MP3 #### [facility] [address] [place], [place] Sodium [Moles/Vol] 134 mmol/L Low 135-145 [facility] Comment on above: Performed By: #### C MP3 #### [facility] [address] [place] Albumin [Mass/Vol] 3.3 g/dL Low 3.5-5.0 [facility] Comment on above: Performed By: #### C MP3 #### [facility] [address] [place], [place] Chloride [Moles/Vol] 105 mmol/L Normal 98-107 [facility] Comment on above: Performed By: #### C MP3 #### [facility] [address] [place], [place] Comprehensive Metabolic Pane gigi 11-28-2020 Albumin [Mass/Vol] 3.3 g/dL Low 3.5 - 5 g/dL [place] ALP [Catalytic activity/Vol] 77 U/L 38 - 126 U/L [place] Comment on above: Slightly hemolysed, interpret with caution. ALT [Catalytic activity/Vol] 30 U/L 0 - 34 U/L [place] Comment on above: The ALT test is perf ormed by an updated assay method. Please note that the reference intervals have been changed and are now sex specific. Anion gap [Moles/Vol] 5 mmol/L [place], [place] AST [Catalytic activity/Vol] 26 U/L 15 - 46 U/L [place] Comment on above: Slightly hemolysed, interpret with caution. Bilirubin Ql (U) 0.6 mg/dL 0.2 - 1.3 mg/dL [place] Calcium [Mass/Vol] 8.7 mg/dL 8.4 - 10. 4 mg/dL [place] Chloride [Moles/Vol] 105 mmol/L 98 - 10 7 mmol/L [place] CO2 [Moles/Vol] 25 mmol/L 22 - 30 mmol/L [place] Creatinine [Mass/Vol] 0.66 mg/dL 0.52 - 1.25 mg/dL [place] EGFR IF NonAfrican [place] >90.0 >60 mL/min [place] Comment on above: KDIGO guidelines pro [...] MDRD (S/P/Bld) [Vol rate/Area] mL/min/{1.73_m2} >60 mL/min [place] Glucose [Mass/Vol] 100 mg/dL 70 - 100 mg/dL [place] Interpretation and review of laboratory results Abnormal [place] Potassium [Moles/Vol] 4.3 mmol/L 3.5 - 5.1 mmol/L [place] Comment on above: Slightly hemolysed, interpret with caution. Protein [Mass/Vol] 6.0 g/dL Low 6.3 - 8.2 g/dL [place] Sodium [Moles/Vol] 134 mmol/L Low 135 - 145 mmol/L [place] Urea nitrogen [Mass/Vol] 10 mg/dL 7 - 20 mg/dL [place] Test Performed by [facility], [address] [place] [address] [place], [place] Glucose,Bedsideon 11-28-2020 Glucose [Mass/Vol] 111 mg/dL High 70-100 [facility] Comment on above: Result Comment: Test performed by glucose meter. Results may be 10%-15% lower than serum/plasma values. (CLIA ID [id number]) Performed By: #### B GLU #### [facility] [address] [place] [address] Glucose [Mass/Vol] 166 mg/dL High 70-100 [facility] Comment on above: Result Comment: Test performed by glucose meter. Results may be 10%-15% lower than serum/plasma values. (CLIA ID [id number]) Performed By: #### B GLU #### [facility] [address] [place] [address] Glucose [Mass/Vol] 215 mg/dL High 70-100 [facility] Comment on above: Result Comment: Test performed by glucose meter. Results may be 10%-15% lower than serum/plasma values. (CLIA ID [id number]) Performed By: #### B GLU #### [facility] [address] [place] [address] POCT Glucoseon 11-28-2020 Glucose [Mass/Vol] 111 mg/dL High 70 - 100 mg/dL [place] Comment on above: Test performed by gl ucose meter. Results may be 10%-15% lower than serum/plasma values. (CLIA ID [id number]) Interpretation and review of laboratory results Abnormal [place] Test Performed by [facility], [address] [place] [address] [place], [place] Glucose [Mass/Vol] 166 mg/dL High 70 - 100 mg/dL [place] Comment on above: Test performed by gl ucose meter. Results may be 10%-15% lower than serum/plasma values. (CLIA ID [id number]) Interpretation and review of laboratory results Abnormal [facility] MARYAM Test Performed by [facility], [address] [place] [address] [place], [place] Glucose [Mass/Vol] 215 mg/dL High 70 - 100 mg/dL [place] Comment on above: Test performed by gl ucose meter. Results may be 10%-15% lower than serum/plasma values. (CLIA ID [id number]) Interpretation and review of laboratory results Abnormal [facility] MARYAM Test Performed by [facility], [address] [place] [address] [place], [place] Surgical Pathologyon 021 Sodium [Moles/Vol] SEE BELOW [facility] MARY[facility] 1 [id number] [facility] DEPART[facility] OF [facility] PATHOLOGY AND LABORATORY MEDICINE [address] [place] [address] FINAL SURGICAL PATHOLOGY REPORT NAME: WILL JACINTO : 1965 55 Y F BILLING NO.: [id number] LOCATION: [address] [place] [address] PROCEDURE 11/26/2020 DATE: SURGEON: VIRGIL MARSHALL M.D. [...] residual atypical hyperplasia. Follow-up and rebiopsy recommended. NE/NE Signature> ALLEN JERRY M.D. CLINICAL INFORMATION: Not [...] by the clinical laboratories of [facility]. They have not been cleared by [...] negativity on decalcified specimens. Professional Performing Location: [address] [address]. DEPARTMENT OF PATHOLOGY AND LABORATORY MEDICINE [place], [place] [address] [place], [place] XR ABDOMEN (KUB) (SINGLE AP VIEW)on 11-28-2020 [facility] Incoming Radiology Results From [facility] - 11/28/2020 9:26 AM EST Patient Name: WILL JACINTO Diagnostic Radiology ACCESSION EXAM DATE/TIME PROCEDURE ORDERING PROVIDER [id number] 11/28/2020 09:00 EST CR Abdomen AP MD MARTIN KHALED CPT code 55967 Reason For Exam (CR Abdomen AP) ileus [...] RISA Transcribed Date and Time: 11/28/2020 9:25 [place], [place] Patient Name: WILL JACINTO Diagnostic Radiology ACCESSION EXAM DATE/TIME PROCEDURE ORDERING PROVIDER [id number] 11/28/2020 09:00 EST CR Abdomen AP MD MARTIN KHALED CPT code 09420 Reason For Exam (CR Abdomen AP) ileus [...] RISA Transcribed Date and Time: 11/28/2020 9:25 [facility], [place] CR Abdomen APon 11-27-2020 CR Abdomen AP Patient Name: WILL ALVARADO Diagnostic Radiology ACCESSION EXAM DATE/TIME PROCEDURE ORDERING PROVIDER [id number] 11/27/2020 08:28 EST CR Abdomen AP MD JD, CHAU CPT code 86651 Reason For Exam (CR Abdomen AP) ileus [...] and Time: 11/27/2020 8:38 Normal [facility] Comp Metabolic Panelon 11-27 ALP [Catalytic activity/Vol] 97 U/L Normal 38-126 [facility] Comment on above: Performed By: #### C MP3 #### [facility] [address] [place], [place] ALT [Catalytic activity/Vol] 34 U/L Normal 0-34 [facility] Comment on above: Result Comment: The ALT test is performed by an updated assay method. Please note that the reference intervals have been changed and are now sex specific. Performed By: #### C MP3 #### [facility] [address] [place], [place] Anion gap [Moles/Vol] 6 Normal [facility] Comment on above: Performed By: #### C MP3 #### [facility] [address] [place], [place] AST [Catalytic activity/Vol] 26 U/L Normal 15-46 [facility] Comment on above: Performed By: #### C MP3 #### [facility] [address] [facility], [place] Bilirubin [Mass/Vol] 0.6 mg/dL Normal 0.2-1.3 [facility] Comment on above: Performed By: #### C MP3 #### [facility] [address] [facility], [place] Calcium [Mass/Vol] 8.2 mg/dL Low 8.4-10.4 [facility] Comment on above: Performed By: #### C MP3 #### [facility] [address] [facility], [place] CO2 [Moles/Vol] 21 mmol/L Low 22-30 [facility] Comment on above: Performed By: #### C MP3 #### [facility] [address] [place], [place] Glucose [Mass/Vol] 225 mg/dL High 70-100 [facility] Comment on above: Performed By: #### C MP3 #### [facility] [address] [facility], [place] Protein [Mass/Vol] 6.1 g/dL Low 6.3-8.2 [facility] Comment on above: Performed By: #### C MP3 #### [facility] [address] [place] Urea nitrogen [Mass/Vol] 13 mg/dL Normal 7-20 [facility] Comment on above: Performed By: #### C MP3 #### [facility] [address] [facility], [place] Creatinine [Mass/Vol] 0.57 mg/dL Normal 0.52-1.25 [facility] Comment on above: Performed By: #### C MP3 #### [facility] [address] [facility], [place] GFR/1.73 sq M predicted among blacks MDRD (S/P/Bld) [Vol rate/Area] mL/min/{1.73_m2} Normal >60 [facility] Comment on above: Performed By: #### C MP3 #### [address] [address] GFR/1.73 sq M predicted among non-blacks MDRD (S/P/Bld) [Vol rate/Area] mL/min/{1.73_m2} Normal >60 [facility] Comment on above: Result Comment: KDIG [...] secretion. Performed By: #### C MP3 #### [address] [address] [place], [place] Albumin [Mass/Vol] 3.3 g/dL Low 3.5-5.0 [facility] Comment on above: Performed By: #### C MP3 #### [address] [address] Chloride [Moles/Vol] 104 mmol/L Normal 98-107 [facility] Comment on above: Performed By: #### C MP3 #### [address] [address] Potassium [Moles/Vol] 4.2 mmol/L Normal 3.5-5.1 [facility] Comment on above: Performed By: #### C MP3 #### [address] [address] Sodium [Moles/Vol] 132 mmol/L Low 135-145 [facility] Comment on above: Performed By: #### C MP3 #### [address] [address] Comprehensive Metabolic Pane gigi 11-27-2020 Albumin [Mass/Vol] 3.3 g/dL Low 3.5 - 5 g/dL [place] ALP [Catalytic activity/Vol] 97 U/L 38 - 126 U/L [place] ALT [Catalytic activity/Vol] 34 U/L 0 - 34 U/L [place] Comment on above: The ALT test is perf ormed by an updated assay method. Please note that the reference intervals have been changed and are now sex specific. Anion gap [Moles/Vol] 6 mmol/L [place], [place] AST [Catalytic activity/Vol] 26 U/L 15 - 46 U/L [place] Bilirubin Ql (U) 0.6 mg/dL 0.2 - 1.3 mg/dL [place] Calcium [Mass/Vol] 8.2 mg/dL Low 8.4 - 10. 4 mg/dL [place] Chloride [Moles/Vol] 104 mmol/L 98 - 10 7 mmol/L [place] CO2 [Moles/Vol] 21 mmol/L Low 22 - 30 mmol/L [place] Creatinine [Mass/Vol] 0.57 mg/dL 0.52 - 1.25 mg/dL [place] EGFR IF NonAfrican [place] >90.0 >60 mL/min [place] Comment on above: KDIGO guidelines pro [...] MDRD (S/P/Bld) [Vol rate/Area] mL/min/{1.73_m2} >60 mL/min [facility], [place] Glucose [Mass/Vol] 225 mg/dL High 70 - 100 mg/dL [facility], [place] Interpretation and review of laboratory results Abnormal [place], [place] Potassium [Moles/Vol] 4.2 mmol/L 3.5 - 5.1 mmol/L [facility], [place] Protein [Mass/Vol] 6.1 g/dL Low 6.3 - 8.2 g/dL [place] Sodium [Moles/Vol] 132 mmol/L Low 135 - 145 mmol/L [facility], [place] Urea nitrogen [Mass/Vol] 13 mg/dL 7 - 20 mg/dL [place] Test Performed by [facility], [address] [place] [id number] [place] [address] EKG 12 Leadon 11-27-2020 [facility] Incoming Cardiology Results From [facility] - 11/27/2020 10:03 AM EST [facility] [employer] [facility] Test Date: 2020-11-26 Pat Name: Will Jacinto Department: 1A7E Room: 1714 Gender: F Publications Manager: SARAN : 1965 Requested By: GABO ESTRADA Order Number: [id number] Reading MD: Jelena Davidson Measurements Intervals Lynn Rate: 85 P: 38 NE: 159 QRS: -39 QRSD: 105 T: 29 QT: 382 QTc: 455 Interpretive Statements Sinus rhythm Left ventricular hypertrophy Anterior Q waves, possibly due to LVH Electronically Signed On 11-27-2020 10:02:38 EST by Jelena Davidson [facility] MARYAM [facility] [employer] [facility] Test Date: 2020-11-26 Pat Name: Will Jacinto Department: 1A7E Room: [facility] Gender: F Publications Manager: SARAN : 1965 Requested By: GABO ESTRADA Order Number: [id number] Reading SHARRON Davidson Measurements Intervals Lynn Rate: 85 P: 38 NE: 159 QRS: -39 QRSD: 105 T: 29 QT: 382 QTc: 455 Interpretive Statements Sinus rhythm Left ventricular hypertrophy Anterior Q waves, possibly due to LVH Electronically Signed On 11-27-2020 10:02:38 EST by Jelena Davidson [facility], [place] Glucose, Bedsideon 1 Confirmation see below Normal [facility] Comment on above: Result Comment: No c onfirmation received. Performed By: #### B GLU #### [facility] [employer] [facility] [address] [place] [address] Glucose [Mass/Vol] mg/dL High 70-100 [facility] Comment on above: Result Comment: Test performed by glucose meter. Results may be 10%-15% lower than serum/plasma values. (CLIA ID [id number]) Performed By: #### B GLU #### [facility] [employer] [facility] [address] [place] [address] Glucose,Bedsideon 11-27-2020 Glucose [Mass/Vol] 91 mg/dL Normal 70-100 [facility] Comment on above: Result Comment: Test performed by glucose meter. Results may be 10%-15% lower than serum/plasma values. (CLIA ID [id number]) Performed By: #### B GLU #### [facility] [address] [place] [address] Glucose [Mass/Vol] 134 mg/dL High 70-100 [facility] Comment on above: Result Comment: Test performed by glucose meter. Results may be 10%-15% lower than serum/plasma values. (CLIA ID [id number]) Performed By: #### B GLU #### [facility] [address] [place] [address] Glucose [Mass/Vol] 205 mg/dL High 70-100 [facility] Comment on above: Result Comment: Test performed by glucose meter. Results may be 10%-15% lower than serum/plasma values. (CLIA ID [id number]) Performed By: #### B GLU #### [facility] [employer] [facility] [address] [place] [address] Glucose [Mass/Vol] 223 mg/dL High 70-100 [facility] Comment on above: Result Comment: Test performed by glucose meter. Results may be 10%-15% lower than serum/plasma values. (CLIA ID [id number]) Performed By: #### B GLU #### [address] [address] [place] [address] POC Glucose, Whole Bloodon 0 11-27-2020 Glucose [Mass/Vol] mg/dL High 70 - 100 mg/dL [place] Comment on above: Test performed by gl ucose meter. Results may be 10%-15% lower than serum/plasma values. (CLIA ID [id number]) Interpretation and review of laboratory results Abnormal [place] Sodium [Moles/Vol] see below [place] Comment on above: No confirmation rece ived. Test Performed by [facility], [place] [address] [place], [place] POCT Glucoseon 11-27-2020 Glucose [Mass/Vol] 91 mg/dL 70 - 100 mg/dL [place] Comment on above: Test performed by gl ucose meter. Results may be 10%-15% lower than serum/plasma values. (CLIA ID [id number]) Test Performed by [facility], [place] [address] [place], [place] Glucose [Mass/Vol] 134 mg/dL High 70 - 100 mg/dL [place] Comment on above: Test performed by gl ucose meter. Results may be 10%-15% lower than serum/plasma values. (CLIA ID [id number]) Interpretation and review of laboratory results Abnormal [place] Test Performed by [facility], [facility] [place] [address] [place] Glucose [Mass/Vol] 205 mg/dL High 70 - 100 mg/dL [place] Comment on above: Test performed by gl ucose meter. Results may be 10%-15% lower than serum/plasma values. (CLIA ID [id number]) Interpretation and review of laboratory results Abnormal [facility] [place] [place] Test Performed by [address] [place] [address] [place], [place] Glucose [Mass/Vol] 223 mg/dL High 70 - 100 mg/dL [place] Comment on above: Test performed by gl ucose meter. Results may be 10%-15% lower than serum/plasma values. (CLIA ID [id number]) Interpretation and review of laboratory results Abnormal [place] Test Performed by [facility], [facility] [place] [address] [place] XR ABDOMEN (KUB) (SINGLE AP VIEW)on 11-27-2020 Patient Name: WILL ALVARADO Diagnostic Radiology ACCESSION EXAM DATE/TIME PROCEDURE ORDERING PROVIDER [id number] 11/27/2020 08:28 EST CR Abdomen AP MD MARTIN KHALED CPT code 67639 Reason For Exam (CR Abdomen AP) ileus [...] JASON Transcribed Date and Time: 11/27/2020 8:38 [place], [place] Nati Jones Incoming Radiology Results From [facility] - 11/27/2020 8:41 AM EST Patient Name: WILL JACINTO Diagnostic Radiology ACCESSION EXAM DATE/TIME PROCEDURE ORDERING PROVIDER [id number] 11/27/2020 08:28 EST CR Abdomen AP MD MARTIN KHALED CPT code 79123 Reason For Exam (CR Abdomen AP) ileus [...] JASON Transcribed Date and Time: 11/27/2020 8:38 [facility] Metabolic Panelon 11-26 ALP [Catalytic activity/Vol] 88 U/L Normal 38-126 [facility] Comment on above: Performed By: #### B GLU #### [facility] [address] [place] [address] ALT [Catalytic activity/Vol] 33 U/L Normal 0-34 [facility] Comment on above: Result Comment: The ALT test is performed by an updated assay method. Please note that the reference intervals have been changed and are now sex specific. Performed By: #### B GLU #### [facility] [address] [place] [address] Calcium [Mass/Vol] 8.9 mg/dL Normal 8.4-10.4 [facility] Comment on above: Performed By: #### B GLU #### [facility] [address] [place] [address] Glucose [Mass/Vol] 188 mg/dL High 70-100 [facility] Comment on above: Performed By: #### B GLU #### [facility] [address] [place] [address] Urea nitrogen [Mass/Vol] 10 mg/dL Normal 7-20 [facility] Comment on above: Performed By: #### B GLU #### [facility] [address] [place] Anion gap [Moles/Vol] 7 Normal [facility] Comment on above: Performed By: #### B GLU #### [facility] [address] [place] AST [Catalytic activity/Vol] 29 U/L Normal 15-46 [facility] Comment on above: Performed By: #### B GLU #### [facility] [address] [place] Bilirubin [Mass/Vol] 0.5 mg/dL Normal 0.2-1.3 [facility] Comment on above: Performed By: #### B GLU #### [facility] [address] [place] CO2 [Moles/Vol] 25 mmol/L Normal 22-30 [facility] Comment on above: Performed By: #### B GLU #### [address] [place], [place] Creatinine [Mass/Vol] 0.63 mg/dL Normal 0.52-1.25 [facility] Comment on above: Performed By: #### B GLU #### [facility] [address] [place], [place] GFR/1.73 sq M predicted among blacks MDRD (S/P/Bld) [Vol rate/Area] mL/min/{1.73_m2} Normal >60 [facility] Comment on above: Performed By: #### B GLU #### [facility] [address] [place], [place] GFR/1.73 sq M predicted among non-blacks MDRD (S/P/Bld) [Vol rate/Area] mL/min/{1.73_m2} Normal >60 [facility] Comment on above: Result Comment: KDIG [...] secretion. Performed By: #### B GLU #### [facility] [address] [place], [place] Protein [Mass/Vol] 6.2 g/dL Low 6.3-8.2 [facility] Comment on above: Performed By: #### B GLU #### [address] [place] Albumin [Mass/Vol] 3.4 g/dL Low 3.5-5.0 [facility] Comment on above: Performed By: #### B GLU #### [address] [place] Chloride [Moles/Vol] 98 mmol/L Normal 98-107 [facility] Comment on above: Performed By: #### B GLU #### [address] [place] Potassium [Moles/Vol] 3.9 mmol/L Normal 3.5-5.1 [facility] Comment on above: Performed By: #### B GLU #### [address] [place] Sodium [Moles/Vol] 130 mmol/L Low 135-145 [facility] Comment on above: Performed By: #### B GLU #### [address] [place] Comprehensive Metabolic Pane gigi 11-26-2020 Albumin [Mass/Vol] 3.4 g/dL Low 3.5 - 5 g/dL [place] ALP [Catalytic activity/Vol] 88 U/L 38 - 126 U/L [place] ALT [Catalytic activity/Vol] 33 U/L 0 - 34 U/L [place] Comment on above: The ALT test is perf ormed by an updated assay method. Please note that the reference intervals have been changed and are now sex specific. Anion gap [Moles/Vol] 7 mmol/L [place] AST [Catalytic activity/Vol] 29 U/L 15 - 46 U/L [place] Bilirubin Ql (U) 0.5 mg/dL 0.2 - 1.3 mg/dL [place] Calcium [Mass/Vol] 8.9 mg/dL 8.4 - 10. 4 mg/dL [place] Chloride [Moles/Vol] 98 mmol/L 98 - 10 7 mmol/L [place] CO2 [Moles/Vol] 25 mmol/L 22 - 30 mmol/L [place] Creatinine [Mass/Vol] 0.63 mg/dL 0.52 - 1.25 mg/dL [place] EGFR IF NonAfrican [place] >90.0 >60 mL/min [place] Comment on above: KDIGO guidelines pro [...] MDRD (S/P/Bld) [Vol rate/Area] mL/min/{1.73_m2} >60 mL/min [place] Glucose [Mass/Vol] 188 mg/dL High 70 - 100 mg/dL [place] Interpretation and review of laboratory results Abnormal [place] Potassium [Moles/Vol] 3.9 mmol/L 3.5 - 5.1 mmol/L [place] Protein [Mass/Vol] 6.2 g/dL Low 6.3 - 8.2 g/dL [place] Sodium [Moles/Vol] 130 mmol/L Low 135 - 145 mmol/L [place] Urea nitrogen [Mass/Vol] 10 mg/dL 7 - 20 mg/dL [place], [place] Test Performed by [facility], [address] [place] [address] [place], [place] Glucose,Bedsideon 11-26-2020 Glucose [Mass/Vol] 254 mg/dL High 70-100 [facility] Comment on above: Result Comment: Test performed by glucose meter. Results may be 10%-15% lower than serum/plasma values. (CLIA ID [id number]) Performed By: #### B GLU #### [address] [place] [address] Glucose [Mass/Vol] 383 mg/dL High 70-100 [facility] Comment on above: Result Comment: Test performed by glucose meter. Results may be 10%-15% lower than serum/plasma values. (CLIA ID [id number]) Performed By: #### B GLU #### [address] [place] [address] Glucose [Mass/Vol] 206 mg/dL High 70-[address] [place] [address] Comment on above: Result Comment: Test performed by glucose meter. Results may be 10%-15% lower than serum/plasma values. (CLIA ID [id number]) Performed By: #### B GLU #### [address] [place] [address] Glucose [Mass/Vol] 169 mg/dL High 70-100 [facility] Comment on above: Result Comment: Test performed by glucose meter. Results may be 10%-15% lower than serum/plasma values. (CLIA ID [id number]) Performed By: #### B GLU #### [address] [place] [address] Glucose [Mass/Vol] 168 mg/dL High 70-100 [facility] Comment on above: Result Comment: Test performed by glucose meter. Results may be 10%-15% lower than serum/plasma values. 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 Two esuffm-uk-hvfrv stitches were used to obtain hemostasis with [...] devices during the surgery. Diskriter Job ID: [id number] Virgil Marshall MD DOD:11/26/2020 10:39 A RLK/dsk DOT:11/26/2020 11: (more content not included)... Normal [facility] Otheron 11-26-2020 Test Performed by [facility], [address] [place] [address] [facility] POCT Glucoseon 11-26-2020 Glucose [Mass/Vol] 254 mg/dL High 70 - 100 mg/dL [facility] [place] Comment on above: Test performed by gl ucose meter. Results may be 10%-15% lower than serum/plasma values. (CLIA ID [id number]) Interpretation and review of laboratory results Abnormal [facility] [place] Glucose [Mass/Vol] 383 mg/dL High 70 - 100 mg/dL [facility] [place] Comment on above: Test performed by gl ucose meter. Results may be 10%-15% lower than serum/plasma values. (CLIA ID [id number]) Interpretation and review of laboratory results Abnormal [facility] Test Performed by [facility], [facility] [place] [address] [facility] Glucose [Mass/Vol] 206 mg/dL High 70 - 100 mg/dL [facility] [place] Comment on above: Test performed by gl ucose meter. Results may be 10%-15% lower than serum/plasma values. (CLIA ID [id number]) Interpretation and review of laboratory results Abnormal [facility] Test Performed by [employer] [facility], [address] [place] [address] [facility] Glucose [Mass/Vol] 169 mg/dL High 70 - 100 mg/dL [facility] [place] Comment on above: Test performed by gl ucose meter. Results may be 10%-15% lower than serum/plasma values. (CLIA ID [id number]) Interpretation and review of laboratory results Abnormal [facility] [place] Test Performed by [facility], [address] [place] [address] [place], [place] Surgical Pathologyon 021 Surgical Pathology [id number] [facility] PATHOLOGY AND LABORATORY MEDICINE [address] [place] [id number] FINAL SURGICAL PATHOLOGY REPORT NAME: TABALEX WILL M : 1965 55 [facility] [id number] LOCATION: [facility] PROCEDURE 11/26/2020 DATE: SURGEON: VIRGIL [...] residual atypical hyperplasia. Follow-up and rebiopsy recommended. NE/NE Signature> ALLEN JERRY M.D. CLINICAL INFORMATION: Not [...] by the clinical laboratories of [facility]. They have not been cleared by [...] negativity on decalcified specimens. Professional Performing Location: [address] [address] [place] [address]. DEPARTMENT OF PATHOLOGY AND LABORATORY MEDICINE [place], [place] [address] Normal [facility] TSH without Reflexon 021 TSH Qn 2.356 u[IU]/mL 0.465 - 4.68 u[IU]/mL [place], [place] Test Performed by [facility], [facility] [place], [place] [address] [place] [address] Thyroid Stim. Hormoneon 11-08 Thyroid Stim. Hormone 2.356 u[IU]/mL Normal 0.465-4.68 0 [facility] Comment on above: Performed By: #### B GLU #### [facility] [address] [place] [address] Troponin Ion 11-26-2020 Troponin I.cardiac [Mass/Vol] ng/mL Normal 0.000-0.034 [place], [place] Comment on above: . Result Comment: . Performed By: #### T CHERELLEN #### [address] [place] [address] CBC Auto Differentialon 11-08 Absolute Baso # 0.1 10*3/uL 0 - 0.2 10*3/uL [place], [place] Absolute Neut # 4.9 10*3/uL 1.8 - 7 10*3/uL [place] Basophils/100 WBC (Bld) 0.9 % 0 - 2 % [place], [place] Eosinophils (Bld) [#/Vol] 0.1 10*3/uL 0 - 0.5 10*3/uL [place] Eosinophils/100 WBC (Bld) 1.8 % 1 - 6 % [place] Erythrocyte distribution width (RBC) [Ratio] 16.1 % High 11.5 - 14.5 % [place] Granulocytes/100 WBC (Bld) 64.4 % 40 - 80 % [place] Hematocrit (Bld) [Volume fraction] 29.4 % Low 35 - 47 % [place] Hemoglobin (Bld) [Mass/Vol] 10.0 g/dL Low 11.7 - 16 g/dL [place] Interpretation and review of laboratory results Abnormal [place] Lymphocytes (Bld) [#/Vol] 2.0 10*3/uL 1 - 4.3 10*3/uL [place] Lymphocytes/100 WBC (Bld) 25.7 % 20 - 40 % [place] MCH (RBC) [Entitic mass] 29.8 pg 26 - 34 pg [place] MCHC (RBC) [Mass/Vol] 33.9 % 32 - 36 % [place] MCV (RBC) [Entitic vol] 87.7 fL 79 - 98 fL [place], [place] Monocytes (Bld) [#/Vol] 0.5 10*3/uL 0 - 0.8 10*3/uL [place], [place] Monocytes/100 WBC (Bld) 7.2 % 2 - 10 % [place] Platelet mean volume (Bld) [Entitic vol] 7.6 fL 7.4 - 10.4 fL [place] Platelets (Bld) [#/Vol] 352 10*3/uL 140 - 440 10*3/uL [place] RBC (Bld) [#/Vol] 3.35 10*6/uL Low 3.8 - 5.2 10*6/uL [place] WBC (Bld) [#/Vol] 7.6 10*3/uL 3.6 - 10.7 10*3/uL [place] Test Performed by [facility], [address], [place], [place] [address] [place] Comprehensive Metabolic Pane gigi 11-25-2020 Albumin [Mass/Vol] 3.1 g/dL Low 3.5 - 5 g/dL [place] ALP [Catalytic activity/Vol] 83 U/L 38 - 126 U/L [place] ALT [Catalytic activity/Vol] 31 U/L 0 - 34 U/L [place] Comment on above: The ALT test is perf ormed by an updated assay method. Please note that the reference intervals have been changed and are now sex specific. Anion gap [Moles/Vol] 5 mmol/L [place] AST [Catalytic activity/Vol] 26 U/L 15 - 46 U/L [place] Bilirubin Ql (U) 0.4 mg/dL 0.2 - 1.3 mg/dL [place] Calcium [Mass/Vol] 8.4 mg/dL 8.4 - 10. 4 mg/dL [place] Chloride [Moles/Vol] 103 mmol/L 98 - 10 7 mmol/L [place] CO2 [Moles/Vol] 28 mmol/L 22 - 30 mmol/L [place] Creatinine [Mass/Vol] 0.76 mg/dL 0.52 - 1.25 mg/dL [place] EGFR IF NonAfrican [place] 88.9 mL/min >60 [place] Comment on above: KDIGO guidelines pro [...] MDRD (S/P/Bld) [Vol rate/Area] mL/min/{1.73_m2} >60 mL/min [place] Glucose [Mass/Vol] 107 mg/dL High 70 - 100 mg/dL [place] Interpretation and review of laboratory results Abnormal [place] Potassium [Moles/Vol] 3.8 mmol/L 3.5 - 5.1 mmol/L [facility], [place] Protein [Mass/Vol] 5.8 g/dL Low 6.3 - 8.2 g/dL [place] Sodium [Moles/Vol] 136 mmol/L 135 - 145 mmol/L [place] Urea nitrogen [Mass/Vol] 11 mg/dL 7 - 20 mg/dL [place] Test Performed by [facility] [employer] [facility], [address], [place], [place] [address] [facility] [employer] [place] EKG 12 Leadon 11-25-2020 [facility] Incoming Cardiology Results From [facility]Jeanne - 11/25/2020 8:18 AM EST [facility] Test Date: 2020-11-24 Pat Name: Will IssaNarendracareyalex Department: [facility] Room: 158 Gender: F Publications Manager: : 1965 Requested By: KYLAH DAVID Order Number: [id number] Reading MD: Justin Ramirez Measurements Intervals Lynn Rate: 75 P: 45 NE: 160 QRS: -36 QRSD: 108 T: 18 QT: 392 QTc: 438 Interpretive Statements SINUS RHYTHM LATE PRECORDIAL R/S TRANSITION LEFT VENTRICULAR HYPERTROPHY LEFT ANTERIOR FASCICULAR BLOCK Compared to ECG 11/22/2020 18:01:34 Sinus tachycardia no longer present Electronically Signed On 11-25-2020 8:16:57 EST by Justin Ramirez [facility] Test Date: 2020-11-24 Pat Name: Will Jacinto Department: [facility] Room: 158 Gender: F Publications Manager: : 1965 Requested By: KYLAH DAVID Order Number: [id number] Reading MD: Justin Ramirez Measurements Intervals Lynn Rate: 75 P: 45 NE: 160 QRS: -36 QRSD: 108 T: 18 QT: 392 QTc: 438 Interpretive Statements SINUS RHYTHM LATE PRECORDIAL R/S TRANSITION LEFT VENTRICULAR HYPERTROPHY LEFT ANTERIOR FASCICULAR BLOCK Compared to ECG 11/22/2020 18:01:34 Sinus tachycardia no longer present Electronically Signed On 11-25-2020 8:16:57 EST by Justin Ramirez [place], [place] POC Glucose, Whole Bloodon 0 11-25-2020 Glucose [Mass/Vol] mg/dL High 70 - 100 mg/dL [place] Comment on above: Test performed by emids ucose meter. Results may be 10%-15% lower than serum/plasma values. (CLIA ID [id number]) Interpretation and review of laboratory results Abnormal [facility] [employer] [place] Sodium [Moles/Vol] see below [facility] [place] Comment on above: No confirmation rece ived. Test Performed by [facility], [address], [place], [place] [address] [facility] [place] POCT Glucoseon 11-25-2020 Glucose [Mass/Vol] 168 mg/dL High 70 - 100 mg/dL [place] Comment on above: Test performed by emids ucose meter. Results may be 10%-15% lower than serum/plasma values. (CLIA ID [id number]) Interpretation and review of laboratory results Abnormal [facility] [place] Test Performed by [facility] [facility], [address] [place] [address] [facility] [place] Glucose [Mass/Vol] 248 mg/dL High 70 - 100 mg/dL [facility] [place] Comment on above: Test performed by gl ucose meter. Results may be 10%-15% lower than serum/plasma values. (CLIA ID [id number]) Interpretation and review of laboratory results Abnormal [facility] [place] Test Performed by [facility] [employer] [facility], [address], [place], [place] [address] [facility] Glucose [Mass/Vol] 202 mg/dL High 70 - 100 mg/dL [facility] [place] Comment on above: Test performed by gl ucose meter. Results may be 10%-15% lower than serum/plasma values. (CLIA ID [id number]) Interpretation and review of laboratory results Abnormal [facility] Test Performed by [facility], [address], [place], [place] [address] [facility] Glucose [Mass/Vol] 121 mg/dL High 70 - 100 mg/dL [facility] [place] Comment on above: Test performed by gl ucose meter. Results may be 10%-15% lower than serum/plasma values. (CLIA ID [id number]) Interpretation and review of laboratory results Abnormal [facility] Test Performed by [facility], [address], [place], [place] [address] [facility] Troponinon 11-25-2020 Troponin I.cardiac [Mass/Vol] ng/mL 0 - 0.034 ng/mL [facility] [place] Comment on above: . Test Performed by [facility], [address], [place], [place] [address] [facility] US NON OB TRANSVAGINALon [facility] 11/25/2020 10:46 AM EST Patient Name: WILL JACINTO Ultrasound ACCESSION EXAM DATE/TIME PROCEDURE ORDERING PROVIDER [id number] 11/25/2020 10:38 EST US Transvaginal MD DANIELS DIANA CHRISTINE CPT code 45673 Reason For Exam (US Transvaginal) AUB Report [...] NICHOLAS Transcribed Date and Time: 11/25/2020 10:46 [place] Patient Name: [id number] Ultrasound ACCESSION EXAM DATE/TIME PROCEDURE ORDERING PROVIDER [id number] 11/25/2020 10:38 EST US Transvaginal MD DANIELS DIANA CHRISTINE CPT code 81203 Reason For Exam (US Transvaginal) AUB Report [...] NICHOLAS Transcribed Date and Time: 11/25/2020 10:46 [place] XR ABDOMEN (KUB) (SINGLE AP VIEW)on 11-25-2020 [facility] Incoming Radiology Results From [facility] - 11/25/2020 3:31 PM EST Patient Name: WILL JACINTO Diagnostic Radiology ACCESSION EXAM DATE/TIME PROCEDURE ORDERING PROVIDER [id number] 11/25/2020 15:08 EST CR Abdomen AP Lorenzo STAPLETON MICHAEL CPT code 95226 Reason For Exam (CR Abdomen AP) abd [...] NICHOLAS Transcribed Date and Time: 11/25/2020 3:31 [place] Patient Name: WILL JACINTO Diagnostic Radiology ACCESSION EXAM DATE/TIME PROCEDURE ORDERING PROVIDER [id number] 11/25/2020 15:08 EST CR Abdomen AP Lorenzo STAPLETON MICHAEL CPT code 45322 Reason For Exam (CR Abdomen AP) abd [...] NICHOLAS Transcribed Date and Time: 11/25/2020 3:31 [place] CBC Auto Differentialon 11-08 Absolute Baso # 0.0 10*3/uL 0 - 0.2 10*3/uL [place] Absolute Neut # 5.4 10*3/uL 1.8 - 7 10*3/uL [place] Basophils/100 WBC (Bld) 0.7 % 0 - 2 % [place] Eosinophils (Bld) [#/Vol] 0.1 10*3/uL 0 - 0.5 10*3/uL [place] Eosinophils/100 WBC (Bld) 0.9 % Low 1 - 6 % [place] Erythrocyte distribution width (RBC) [Ratio] 16.3 % High 11.5 - 14.5 % [place] Granulocytes/100 WBC (Bld) 77.5 % 40 - 80 % [place] Hematocrit (Bld) [Volume fraction] 32.6 % Low 35 - 47 % [place] Hemoglobin (Bld) [Mass/Vol] 11.0 g/dL Low 11.7 - 16 g/dL [place] Interpretation and review of laboratory results Abnormal [place] Lymphocytes (Bld) [#/Vol] 1.1 10*3/uL 1 - 4.3 10*3/uL [place] Lymphocytes/100 WBC (Bld) 15.8 % Low 20 - 40 % [place] MCH (RBC) [Entitic mass] 29.4 pg 26 - 34 pg [place] MCHC (RBC) [Mass/Vol] 33.7 % 32 - 36 % [place] MCV (RBC) [Entitic vol] 87.4 fL 79 - 98 fL [place], [place] Monocytes (Bld) [#/Vol] 0.4 10*3/uL 0 - 0.8 10*3/uL [place], [place] Monocytes/100 WBC (Bld) 5.1 % 2 - 10 % [place], [place] Platelet mean volume (Bld) [Entitic vol] 7.9 fL 7.4 - 10.4 fL [place] Platelets (Bld) [#/Vol] 332 10*3/uL 140 - 440 10*3/uL [place] RBC (Bld) [#/Vol] 3.73 10*6/uL Low 3.8 - 5.2 10*6/uL [place] WBC (Bld) [#/Vol] 6.9 10*3/uL 3.6 - 10.7 10*3/uL [place] Test Performed by [facility], [address], [place], [place] [address] [place] Comprehensive Metabolic Pane gigi 11-24-2020 Albumin [Mass/Vol] 3.6 g/dL 3.5 - 5 g/dL [place] ALP [Catalytic activity/Vol] 110 U/L 38 - 126 U/L [place] ALT [Catalytic activity/Vol] 36 U/L High 0 - 34 U/L [place] Comment on above: The ALT test is perf ormed by an updated assay method. Please note that the reference intervals have been changed and are now sex specific. Anion gap [Moles/Vol] 7 mmol/L [place] AST [Catalytic activity/Vol] 31 U/L 15 - 46 U/L [place] Bilirubin Ql (U) 0.6 mg/dL 0.2 - 1.3 mg/dL [place] Calcium [Mass/Vol] 9.1 mg/dL 8.4 - 10. 4 mg/dL [place] Chloride [Moles/Vol] 97 mmol/L Low 98 - 10 7 mmol/L [place] CO2 [Moles/Vol] 29 mmol/L 22 - 30 mmol/L [place] Creatinine [Mass/Vol] 0.74 mg/dL 0.52 - 1.25 mg/dL [place] EGFR IF NonAfrican [place] >90.0 >60 mL/min [place] Comment on above: KDIGO guidelines pro [...] MDRD (S/P/Bld) [Vol rate/Area] mL/min/{1.73_m2} >60 mL/min [place] Glucose [Mass/Vol] 304 mg/dL High 70 - 100 mg/dL [place] Interpretation and review of laboratory results Abnormal [place] Potassium [Moles/Vol] 4.3 mmol/L 3.5 - 5.1 mmol/L [place] Protein [Mass/Vol] 6.5 g/dL 6.3 - 8.2 g/dL [place] Sodium [Moles/Vol] 133 mmol/L Low 135 - 145 mmol/L [place] Urea nitrogen [Mass/Vol] 16 mg/dL 7 - 20 mg/dL [place] Test Performed by [facility], [address], [place], [place] [address] [place] Albumin [Mass/Vol] 3.6 g/dL 3.5 - 5 g/dL [place] ALP [Catalytic activity/Vol] 115 U/L 38 - 126 U/L [place] ALT [Catalytic activity/Vol] 35 U/L High 0 - 34 U/L [place] Comment on above: The ALT test is perf ormed by an updated assay method. Please note that the reference intervals have been changed and are now sex specific. Anion gap [Moles/Vol] 6 mmol/L [place] AST [Catalytic activity/Vol] 25 U/L 15 - 46 U/L [place] Bilirubin Ql (U) 0.6 mg/dL 0.2 - 1.3 mg/dL [place] Calcium [Mass/Vol] 9.0 mg/dL 8.4 - 10. 4 mg/dL [place] Chloride [Moles/Vol] 97 mmol/L Low 98 - 10 7 mmol/L [place] CO2 [Moles/Vol] 29 mmol/L 22 - 30 mmol/L [place] Creatinine [Mass/Vol] 0.78 mg/dL 0.52 - 1.25 mg/dL [place] EGFR IF NonAfrican [place] 86.1 mL/min >60 [place] Comment on above: KDIGO guidelines pro [...] MDRD (S/P/Bld) [Vol rate/Area] mL/min/{1.73_m2} >60 mL/min [place] Glucose [Mass/Vol] 308 mg/dL High 70 - 100 mg/dL [place] Interpretation and review of laboratory results Abnormal [place] Potassium [Moles/Vol] 4.8 mmol/L 3.5 - 5.1 mmol/L [place] Protein [Mass/Vol] 6.6 g/dL 6.3 - 8.2 g/dL [place] Sodium [Moles/Vol] 132 mmol/L Low 135 - 145 mmol/L [place] Urea nitrogen [Mass/Vol] 18 mg/dL 7 - 20 mg/dL [place] Test Performed by [facility], [address] [place] [address] EKG 12 Leadon 11-24-2020 [facility] Incoming Cardiology Results From [facility]/Jeanne - 11/24/2020 6:48 PM EST [facility] Test Date: 2020-11-22 Pat Name: Will Jacinto Department: Room: 158 Gender: F Publications Manager: MALINDA : 1965 Requested By: JOEL NELSON Order Number: [id number] Reading MD: Brock Ortiz Measurements Intervals Lynn Rate: 101 P: 58 NE: 176 QRS: -43 QRSD: 108 T: 47 QT: 380 QTc: 493 Interpretive Statements SINUS TACHYCARDIA LEFT ANTERIOR FASCICULAR BLOCK LATE PRECORDIAL R/S TRANSITION LEFT VENTRICULAR HYPERTROPHY Electronically Signed On 11-24-2020 18:47:09 EST by Brock Ortiz [facility] Test Date: 2020-11-22 Pat Name: Will Jacinto Department: Room: 158 Gender: F Publications Manager: MALINDA : 1965 Requested By: JOEL NELSON Order Number: [id number] Reading MD: Brock Ortiz Measurements Intervals Lynn Rate: 101 P: 58 NE: 176 QRS: -43 QRSD: 108 T: 47 QT: 380 QTc: 493 Interpretive Statements SINUS TACHYCARDIA LEFT ANTERIOR FASCICULAR BLOCK LATE PRECORDIAL R/S TRANSITION LEFT VENTRICULAR HYPERTROPHY Electronically Signed On 11-24-2020 18:47:09 EST by Brock GraciaGood Thingkristina [place] POCT Glucoseon 11-24-2020 Glucose [Mass/Vol] 159 mg/dL High 70 - 100 mg/dL [place] Comment on above: Test performed by gl ucose meter. Results may be 10%-15% lower than serum/plasma values. (CLIA ID [id number]) Interpretation and review of laboratory results Abnormal [employer] Test Performed by [facility], [address] [place] [address] [place] Glucose [Mass/Vol] 235 mg/dL High 70 - 100 mg/dL [place] Comment on above: Test performed by gl ucose meter. Results may be 10%-15% lower than serum/plasma values. (CLIA ID [id number]) Interpretation and review of laboratory results Abnormal [employer] Test Performed by [facility], [address], [place], [place] [address] [place] Glucose [Mass/Vol] 298 mg/dL High 70 - 100 mg/dL [place] Comment on above: Test performed by gl ucose meter. Results may be 10%-15% lower than serum/plasma values. (CLIA ID [id number]) Interpretation and review of laboratory results Abnormal [employer], [place] Test Performed by [employer], [address], [place], [place] [address] [employer] Glucose [Mass/Vol] 358 mg/dL High 70 - 100 mg/dL [place] Comment on above: Test performed by ucose meter. Results may be 10%-15% lower than serum/plasma values. (CLIA ID [id number]) Interpretation and review of laboratory results Abnormal [place] Test Performed by [facility], [address], [place], [place] [address] [place] Troponinon 11-24-2020 Troponin I.cardiac [Mass/Vol] ng/mL 0 - 0.034 ng/mL [place] Comment on above: . Test Performed by [facility], [address], [place], [place] [address] [place] Troponin I.cardiac [Mass/Vol] ng/mL 0 - 0.034 ng/mL [place] Comment on above: . Test Performed by [facility], [address], [place], [place] [address] [place] CBC Auto Differentialon 11-08 Absolute Baso # 0.0 10*3/uL 0 - 0.2 10*3/uL [place] Absolute Neut # 7.6 10*3/uL High 1.8 - 7 10*3/uL [place] Basophils/100 WBC (Bld) 0.3 % 0 - 2 % [place] Eosinophils (Bld) [#/Vol] 0.0 10*3/uL 0 - 0.5 10*3/uL [place] Eosinophils/100 WBC (Bld) 0.1 % Low 1 - 6 % [place] Erythrocyte distribution width (RBC) [Ratio] 16.3 % High 11.5 - 14.5 % [place] Granulocytes/100 WBC (Bld) 85.6 % High 40 - 80 % [place] Hematocrit (Bld) [Volume fraction] 33.4 % Low 35 - 47 % [place] Hemoglobin (Bld) [Mass/Vol] 11.2 g/dL Low 11.7 - 16 g/dL [place] Interpretation and review of laboratory results Abnormal [place] Lymphocytes (Bld) [#/Vol] 0.7 10*3/uL Low 1 - 4.3 10*3/uL [place] Lymphocytes/100 WBC (Bld) 7.9 % Low 20 - 40 % [place] MCH (RBC) [Entitic mass] 29.5 pg 26 - 34 pg [place] MCHC (RBC) [Mass/Vol] 33.5 % 32 - 36 % [place] MCV (RBC) [Entitic vol] 88.0 fL 79 - 98 fL [place], [place] Monocytes (Bld) [#/Vol] 0.5 10*3/uL 0 - 0.8 10*3/uL [place] Monocytes/100 WBC (Bld) 6.1 % 2 - 10 % [place], [place] Platelet mean volume (Bld) [Entitic vol] 8.0 fL 7.4 - 10.4 fL [place] Platelets (Bld) [#/Vol] 343 10*3/uL 140 - 440 10*3/uL [place] RBC (Bld) [#/Vol] 3.80 10*6/uL 3.8 - 5.2 10*6/uL [place] WBC (Bld) [#/Vol] 8.9 10*3/uL 3.6 - 10.7 10*3/uL [place] Test Performed by [facility], [address], [place], [place] [address] [place] Comprehensive Metabolic Pane gigi 11-23-2020 Albumin [Mass/Vol] 3.9 g/dL 3.5 - 5 g/dL [place] ALP [Catalytic activity/Vol] 136 U/L High 38 - 126 U/L [place] ALT [Catalytic activity/Vol] 42 U/L High 0 - 34 U/L [place] Comment on above: The ALT test is perf ormed by an updated assay method. Please note that the reference intervals have been changed and are now sex specific. Anion gap [Moles/Vol] 11 mmol/L [place] AST [Catalytic activity/Vol] 31 U/L 15 - 46 U/L [place] Bilirubin Ql (U) 0.6 mg/dL 0.2 - 1.3 mg/dL [place] Calcium [Mass/Vol] 9.6 mg/dL 8.4 - 10. 4 mg/dL [place] Chloride [Moles/Vol] 94 mmol/L Low 98 - 10 7 mmol/L [place] CO2 [Moles/Vol] 28 mmol/L 22 - 30 mmol/L [place] Creatinine [Mass/Vol] 0.86 mg/dL 0.52 - 1.25 mg/dL [place] EGFR IF NonAfrican [place] 76.5 mL/min >60 [place] Comment on above: KDIGO guidelines pro [...] MDRD (S/P/Bld) [Vol rate/Area] 88.7 mL/min/{1.73_m2} >60 [place] Glucose [Mass/Vol] 481 mg/dL Critically high 70 - 1 00 mg/dL [place] Interpretation and review of laboratory results Abnormal [place] Potassium [Moles/Vol] 4.8 mmol/L 3.5 - 5.1 mmol/L [place] Protein [Mass/Vol] 6.9 g/dL 6.3 - 8.2 g/dL [place] Sodium [Moles/Vol] 133 mmol/L Low 135 - 145 mmol/L [place] Urea nitrogen [Mass/Vol] 20 mg/dL 7 - 20 mg/dL [place] Test Performed by [facility], [address] [place] [address] [place] GLUCOSEon 11-23-2020 Glucose [Mass/Vol] 521 mg/dL Critically high 70 - 1 00 mg/dL [place] Interpretation and review of laboratory results Abnormal [place] Test Performed by [facility], [address] [place], [place] [address] [place] Hemoglobin A1Con 11-23-2020 eAG 240 mg/dL [place] HbA1c (Bld) [Mass fraction] 10.0 % Abnormal [place] Comment on above: Normal less than 5.7 % Prediabetes 5.7% to 6.4% Diabetes 6.5% or higher --HgbA1C levels may not be accurate in patients who have renal disease, received recent blood transfusions, are anemic, or who have dyshemoglobinemia. Interpretation and review of laboratory results Abnormal [facility] [employer] [facility] [place] Test Performed by [facility], [address] [place], [place] [address] [place], [place] POCT Glucoseon 11-23-2020 Glucose [Mass/Vol] 305 mg/dL High 70 - 100 mg/dL [place] Comment on above: Test performed by gl ucose meter. Results may be 10%-15% lower than serum/plasma values. (CLIA ID [id number]) Interpretation and review of laboratory results Abnormal [facility] [employer] [facility] [place] Test Performed by [facility], [address] [place] [address] [place] Glucose [Mass/Vol] 427 mg/dL High 70 - 100 mg/dL [place] Comment on above: Test performed by gl ucose meter. Results may be 10%-15% lower than serum/plasma values. (CLIA ID [id number]) Interpretation and review of laboratory results Abnormal [facility] Test Performed by [facility], [address] [place], [place] [address] [facility] [place], [place] Glucose [Mass/Vol] 408 mg/dL High 70 - 100 mg/dL [facility] [place] Comment on above: Test performed by gl ucose meter. Results may be 10%-15% lower than serum/plasma values. (CLIA ID [id number]) Interpretation and review of laboratory results Abnormal [facility] [place] Test Performed by [facility], [address] [place], [place] [address] [facility] [place] Glucose [Mass/Vol] 432 mg/dL High 70 - 100 mg/dL [facility] [place] Comment on above: Test performed by gl ucose meter. Results may be 10%-15% lower than serum/plasma values. (CLIA ID [id number]) Interpretation and review of laboratory results Abnormal [facility] [place] Test Performed by [facility], [address] [place], [place] [address] [facility], [place] Respiratory Panel, Molecular , with COVID-19 (Restricted: peds pts or suitable admitted adults)on 11-23-2020 Respiratory Panel Molecular, with COVID NEGATIVE: No targets were detected by the [facility] Upper Respiratory Pathogens PCR Panel. _ Expected Result: Not Detected The [employer] Upper Respiratory Pathogens PCR Panel can detect [...] management decisions. This assay was developed by [facility] and distributed under an Emergency Use Authorization (EUA) granted by the FDA for the qualitative detection of SARS-CoV-2 nucleic acid. Provider and patient fact sheets can be found at https://www.fda.gov/medi a/526995/download and https://www.fda.gov/medi a/785004/download. [place] Test Performed by [facility], [address] [place] [address] [place], [place] Basic Metabolic Panelon 11-08 Anion gap [Moles/Vol] 17 mmol/L [place], [place] Calcium [Mass/Vol] 9.8 mg/dL 8.4 - 10. 4 mg/dL [place] Chloride [Moles/Vol] 94 mmol/L Low 98 - 10 7 mmol/L [place] CO2 [Moles/Vol] 23 mmol/L 22 - 30 mmol/L [place] Creatinine [Mass/Vol] 0.75 mg/dL 0.52 - 1.25 mg/dL [place] EGFR IF NonAfrican [place] >90.0 >60 mL/min [place], [place] Comment on above: KDIGO guidelines pro [...] MDRD (S/P/Bld) [Vol rate/Area] mL/min/{1.73_m2} >60 mL/min [place] Glucose [Mass/Vol] 522 mg/dL Critically high 70 - 1 00 mg/dL [place] Potassium [Moles/Vol] 5.5 mmol/L High 3.5 - 5.1 mmol/L [place], [place] Sodium [Moles/Vol] 134 mmol/L Low 135 - 145 mmol/L [place] Urea nitrogen [Mass/Vol] 20 mg/dL 7 - 20 mg/dL [place] COVID-19, Rapidon 11-22-2020 Sodium [Moles/Vol] see below [place], [place] Comment on above: Not Detected Expected Result: Not Detected _ Isothermal nucleic acid amplification performed on the [employer] ID Now System by the [facility] Laboratory Negative results do not preclude SARS-CoV-2 infection and should not be used as the sole basis for treatment or other patient management decisions. This assay was developed by [employer] and distributed under an Emergency Use Authorization (EUA) granted by the FDA for the qualitative detection of SARS-CoV-2 nucleic acid. Provider and patient fact sheets can be found at https://www.fda.gov/media/107213/download and https://www.fda.gov/media/247918/download. Test Performed by [facility], [address] [place] [id number] ORDER WAS CANCELLED 11/22/20 20:20, wrong test code. [place] Abdomen Pelvis W Contrast on 11-22-2020 [facility] Incoming Radiology Results From [facility] - 11/22/2020 7:44 PM EST Patient Name: WILL JACINTO Computed Tomography ACCESSION EXAM DATE/TIME PROCEDURE ORDERING PROVIDER [id number] 11/22/2020 19:[address] Abdomen/Pelvis w/ [place] [id number] -JOEL NELSON Contrast (IV Onl CPT code 73423 Q9967 Reason For Exam (CT Abdomen/Pelvis w/ [...] KEVIN Transcribed Date and Time: 11/22/2020 7:44 [place] Patient Name: WILL ALVARADO Computed Tomography ACCESSION EXAM DATE/TIME PROCEDURE ORDERING PROVIDER [id number] 11/22/2020 19:[address] Abdomen/Pelvis w/ [place] [id number] -JOEL NELSON Contrast (IV Onl CPT code 05981 Q9967 Reason For Exam (CT Abdomen/Pelvis w/ [...] KEVIN Transcribed Date and Time: 11/22/2020 7:44 [place], [place] Hemogram (CBC) w/Auto Diffon 11-22-2020 Absolute Baso # 0.0 10*3/uL 0 - 0.2 10*3/uL [place] Absolute Neut # 8.1 10*3/uL High 1.8 - 7 10*3/uL [place], [place] Basophils/100 WBC (Bld) 0.5 % 0 - 2 % [place] Eosinophils (Bld) [#/Vol] 0.0 10*3/uL 0 - 0.5 10*3/uL [place] Eosinophils/100 WBC (Bld) 0.3 % Low 1 - 6 % [place] Erythrocyte distribution width (RBC) [Ratio] 16.1 % High 11.5 - 14.5 % [place] Granulocytes/100 WBC (Bld) 84.9 % High 40 - 80 % [place] Hematocrit (Bld) [Volume fraction] 36.1 % 35 - 47 % [place] Hemoglobin (Bld) [Mass/Vol] 12.0 g/dL 11.7 - 16 g/dL [place], [place] Interpretation and review of laboratory results Abnormal [place] Lymphocytes (Bld) [#/Vol] 0.9 10*3/uL Low 1 - 4.3 10*3/uL [place], [place] Lymphocytes/100 WBC (Bld) 9.4 % Low 20 - 40 % [place] MCH (RBC) [Entitic mass] 29.0 pg 26 - 34 pg [place], [place] MCHC (RBC) [Mass/Vol] 33.3 % 32 - 36 % [place] MCV (RBC) [Entitic vol] 87.2 fL 79 - 98 fL [place], [place] Monocytes (Bld) [#/Vol] 0.5 10*3/uL 0 - 0.8 10*3/uL [place], [place] Monocytes/100 WBC (Bld) 4.9 % 2 - 10 % [place], [place] Platelet mean volume (Bld) [Entitic vol] 8.1 fL 7.4 - 10.4 fL [place], [place] Platelets (Bld) [#/Vol] 404 10*3/uL 140 - 440 10*3/uL [place] RBC (Bld) [#/Vol] 4.15 10*6/uL 3.8 - 5.2 10*6/uL [place] WBC (Bld) [#/Vol] 9.6 10*3/uL 3.6 - 10.7 10*3/uL [place] Test Performed by [facility], [address], [place], [place] [address] [place], [place] Hepatic Function Panelon Albumin [Mass/Vol] 4.2 g/dL 3.5 - 5 g/dL [place] ALP [Catalytic activity/Vol] 181 U/L High 38 - 126 U/L [place] ALT [Catalytic activity/Vol] 44 U/L High 0 - 34 U/L [place], [place] Comment on above: The ALT test is perf ormed by an updated assay method. Please note that the reference intervals have been changed and are now sex specific. AST [Catalytic activity/Vol] 30 U/L 15 - 46 U/L [place] Bilirubin Ql (U) 0.6 mg/dL 0.2 - 1.3 mg/dL [place] Bilirubin.direct [Mass/Vol] 0.0 mg/dL 0 - 0.3 mg/dL [place] Protein [Mass/Vol] 7.4 g/dL 6.3 - 8.2 g/dL [place] Otheron 11-22-2020 Interpretation and review of laboratory results Abnormal [place], [place] Test Performed by [facility], [address], [place], [place] [id number] [place] [address] POCT GLUCOSEon 11-22-2020 Glucose [Mass/Vol] 470 mg/dL [place], [place] Interpretation and review of laboratory results Normal [place], [place] QC OK? yes [place] Troponin x1on 11-22-2020 Troponin I.cardiac [Mass/Vol] ng/mL 0 - 0.034 ng/mL [place], [place] Comment on above: . Test Performed by [facility], [address], [place], [place] [address] [place] [address] Urinalysison 11-22-2020 Appearance (U) Turbid Abnormal Clear NA [place], [place] Comment on above: . Bilirubin Urine Negative Negative mg/dL [place] Comment on above: . Color (U) Light-Lares Abnormal Lt. Yellow NA [place], [place] Comment on above: . Glucose, Ur >1,000 Abnormal Normal (<70) mg/dL [place], [place] Comment on above: . Interpretation and review of laboratory results Abnormal [place] Ketones Ql (U) 40 mg/dL Abnormal Negative [place], [place] Comment on above: . LEUKOCYTES, UA 75 Abnormal Negative Kat/uL [place], [place] Comment on above: . Nitrite, Urine Negative Negative NA [place], [place] Comment on above: . Occult Blood,Urine >1.0 Abnormal Negative mg/dL [place], [place] Comment on above: . pH (U) 6.0 [pH] [place], [place] Comment on above: . Protein (U) [Mass/Vol] 10 mg/dL Abnormal Negative [place] Comment on above: . RBC (U) [#/Vol] /uL Abnormal 0 - 2 /[HPF] [place], [place] Comment on above: . Specific Platter, Urine 1.025 [place], [place] Comment on above: . Squam Epithel, UA 0-2 3 - 5 /[HPF] [place], [place] Comment on above: . Urobilinogen, Urine Normal Normal (0-1) mg/dL [place], [place] Comment on above: . WBC, UA 0-2 0 - 5 /[HPF] [place], [place] Comment on above: . Test Performed by [facility], [address] [place], [place], [place] [address] [place] [address] XR CHEST PORTABLEon 11-22-19 21 Robert, [facility] Incoming Radiology [facility] - 11/22/2020 6:33 PM EST Patient Name: WILL JACINTO Diagnostic Radiology ACCESSION EXAM DATE/TIME PROCEDURE ORDERING PROVIDER [id number] 11/22/2020 18:30 EST CR Chest Portable [id number] -OMARJOEL CPT code 22685 Reason For Exam (CR Chest Portable) SOB [...] B Transcribed Date and Time: 11/22/2020 6:33 [place] Patient Name: WILL ALVARADO Diagnostic Radiology ACCESSION EXAM DATE/TIME PROCEDURE ORDERING PROVIDER [id number] 11/22/2020 18:30 EST CR Chest Portable [id number] -JOEL NELSON CPT code 01580 Reason For Exam (CR Chest Portable) SOB [...] B Transcribed Date and Time: 11/22/2020 6:33 [facility] GASTRIC EMPTYINGon 2019 Robert, [facility] Incoming Radiology Results From [facility] - 09/30/2020 2:38 PM EST Patient Name: WILL JACINTO ---Nuc Med--- Exam Date/Time 09/30/2020 14:12:07 EST Exam NM Gastric Emptying Study Ordering Physician MD MUNIZ REYNALDO C. Accession Number [id number] CPT4 Codes 38646 () Reason For Exam nausea, diabetees Report [...] ANTHONY Transcribed Date and Time: 09/30/2020 2:38 [place] Patient Name: WILL ALVARADO ---Nuc Med--- Exam Date/Time 09/30/2020 14:12:07 EST Exam NM Gastric Emptying Study Ordering Physician MD FLAVIO, CHRIS Wallace Accession Number [id number] CPT4 Codes 52940 () Reason For Exam nausea, diabetees Report [...] ANTHONY Transcribed Date and Time: 09/30/2020 2:38 [place], [place] POC Glucose, Whole Bloodon 1 11-30-2019 Glucose [Mass/Vol] mg/dL High 70 - 100 mg/dL [place], [place] Comment on above: Test performed by gl ucose meter. Results may be 10%-15% lower than serum/plasma values. (CLIA ID [id number]) Interpretation and review of laboratory results Abnormal [place] Sodium [Moles/Vol] see below [place] Comment on above: No confirmation rece ived. Test Performed by [facility], [address] [place], [place], [place] [address] [place], [place] POCT Glucoseon 09-30-2020 Glucose [Mass/Vol] 394 mg/dL High 70 - 100 mg/dL [place], [place] Comment on above: Test performed by gl ucose meter. Results may be 10%-15% lower than serum/plasma values. (CLIA ID [id number]) Interpretation and review of laboratory results Abnormal [facility] Test Performed by [facility], [address] [place], [place] [address] [facility] Glucose [Mass/Vol] 356 mg/dL High 70 - 100 mg/dL [facility] [place] Comment on above: Test performed by gl ucose meter. Results may be 10%-15% lower than serum/plasma values. (CLIA ID [id number]) Interpretation and review of laboratory results Abnormal [facility] Test Performed by [facility], [address] [place], [place] [address] [facility] [place] Glucose [Mass/Vol] 257 mg/dL High 70 - 100 mg/dL [facility] [place] Comment on above: Test performed by gl ucose meter. Results may be 10%-15% lower than serum/plasma values. (CLIA ID [id number]) Interpretation and review of laboratory results Abnormal [facility] Test Performed by [facility], [address] [facility] POCT Glucoseon 09-29-2020 Glucose [Mass/Vol] 209 mg/dL High 70 - 100 mg/dL [facility] Comment on above: Test performed by gl ucose meter. Results may be 10%-15% lower than serum/plasma values. (CLIA ID [id number]) Interpretation and review of laboratory results Abnormal [facility] Test Performed by [facility], [address] [place], [place] [address] [place] [address] [place] Glucose [Mass/Vol] 301 mg/dL High 70 - 100 mg/dL [facility] Comment on above: Test performed by gl ucose meter. Results may be 10%-15% lower than serum/plasma values. (CLIA ID [id number]) Interpretation and review of laboratory results Abnormal [facility] [place] Test Performed by [facility], [address] [place], [place] [address] [place], [place] [address] Glucose [Mass/Vol] 200 mg/dL High 70 - 100 mg/dL [facility] [place] Comment on above: Test performed by gl ucose meter. Results may be 10%-15% lower than serum/plasma values. (CLIA ID [id number]) Interpretation and review of laboratory results Abnormal [employer] Test Performed by [employer] [facility], [address] [place], [place] [address] [facility] [place] COVID-19on 09-28-2020 SARS-CoV-2 Not Detected Not Detected [facility] Comment on above: Not Detected Expected Result: Not Detected _ Real-time, RT-PCR performed on the [employer] System by the [facility] Negative results do not preclude SARS-CoV-2 infection and should not be used as the sole basis for treatment or other patient management decisions. This assay was developed by [employer] and distributed under an Emergency Use Authorization (EUA) granted by the FDA for the qualitative detection of SARS-CoV-2 nucleic acid. Provider and patient fact sheets can be found at https://www.fda.gov/media/889798/download and https://www.fda.gov/media/177563/download. Test Performed by [facility], [address] [place] [address] Specimen Source Comment:Nasopharyngeal Swab [facility] [place] POCT Glucoseon 09-28-2020 Glucose [Mass/Vol] 346 mg/dL High 70 - 100 mg/dL [facility] [employer] Comment on above: Test performed by gl ucose meter. Results may be 10%-15% lower than serum/plasma values. (CLIA ID [id number]) Interpretation and review of laboratory results Abnormal [employer] Test Performed by [employer] [facility], [address] [place], [place] [address] [facility] [place] Glucose [Mass/Vol] 385 mg/dL High 70 - 100 mg/dL [facility] [employer] Comment on above: Test performed by gl ucose meter. Results may be 10%-15% lower than serum/plasma values. (CLIA ID [id number]) Interpretation and review of laboratory results Abnormal [employer] Test Performed by [employer] [facility], [address] [place], [place] [address] [facility] [place] Glucose [Mass/Vol] 393 mg/dL High 70 - 100 mg/dL [facility] [place] Comment on above: Test performed by gl ucose meter. Results may be 10%-15% lower than serum/plasma values. (CLIA ID [id number]) Interpretation and review of laboratory results Abnormal [facility] [place] Test Performed by [employer] [facility], [address] [place], [place] [address] [facility] [place] Glucose [Mass/Vol] 322 mg/dL High 70 - 100 mg/dL [facility] [place] Comment on above: Test performed by gl ucose meter. Results may be 10%-15% lower than serum/plasma values. (CLIA ID [id number]) Interpretation and review of laboratory results Abnormal [facility] [place] Test Performed by [employer] [facility], [address] [place], [place] [address] [facility] Glucose [Mass/Vol] 325 mg/dL High 70 - 100 mg/dL [facility] [place] Comment on above: Test performed by gl ucose meter. Results may be 10%-15% lower than serum/plasma values. (CLIA ID [id number]) Interpretation and review of laboratory results Abnormal [facility] [place] Test Performed by [employer] [facility], [address] [place] [address] [facility] [place] Glucose [Mass/Vol] 230 mg/dL High 70 - 100 mg/dL [facility] [place] Comment on above: Test performed by gl ucose meter. Results may be 10%-15% lower than serum/plasma values. (CLIA ID [id number]) Interpretation and review of laboratory results Abnormal [facility] [place] Test Performed by [employer] [facility], [address] [place] [address] [facility] [place] Glucose [Mass/Vol] 233 mg/dL High 70 - 100 mg/dL [facility] [place] Comment on above: Test performed by gl ucose meter. Results may be 10%-15% lower than serum/plasma values. (CLIA ID [id number]) Interpretation and review of laboratory results Abnormal [facility] [place] Test Performed by [employer] [facility], [address] [place], [place] [address] [facility] [place] POCT Glucoseon 11-20-2020 Glucose [Mass/Vol] 248 mg/dL High 70 - 100 mg/dL [facility] Comment on above: Test performed by gl ucose meter. Results may be 10%-15% lower than serum/plasma values. (CLIA ID [id number]) Interpretation and review of laboratory results Abnormal [facility] [place], [place] Test Performed by [facility], [address], [place], [place] [address] [place] [address] [employer] Glucose [Mass/Vol] 275 mg/dL High 70 - 100 mg/dL [facility] Comment on above: Test performed by gl ucose meter. Results may be 10%-15% lower than serum/plasma values. (CLIA ID [id number]) Interpretation and review of laboratory results Abnormal [facility] [place] Test Performed by [facility], [address], [address], [place] Glucose [Mass/Vol] 312 mg/dL High 70 - 100 mg/dL [facility], [place] Comment on above: Test performed by gl ucose meter. Results may be 10%-15% lower than serum/plasma values. (CLIA ID [id number]) Interpretation and review of laboratory results Abnormal [employer], [place] Test Performed by [facility], [address], [address] [facility], [place] Glucose [Mass/Vol] 151 mg/dL High 70 - 100 mg/dL [facility], [place] Comment on above: Test performed by gl ucose meter. Results may be 10%-15% lower than serum/plasma values. (CLIA ID [id number]) Interpretation and review of laboratory results Abnormal [employer], [place] Test Performed by [facility], [address] [place], [place] [address] [place] [address] [employer] [place], [place] CBC Auto Differentialon 09-08 Absolute Baso # 0.1 10*3/uL 0 - 0.2 10*3/uL [facility] [employer] [place] Absolute Neut # 7.0 10*3/uL 1.8 - 7 10*3/uL [facility] [employer] [place] Basophils/100 WBC (Bld) 1.0 % 0 - 2 % [place], [place] Eosinophils (Bld) [#/Vol] 0.1 10*3/uL 0 - 0.5 10*3/uL [place] Eosinophils/100 WBC (Bld) 1.2 % 1 - 6 % [place] Erythrocyte distribution width (RBC) [Ratio] 15.5 % High 11.5 - 14.5 % [place] Granulocytes/100 WBC (Bld) 71.3 % 40 - 80 % [place] Hematocrit (Bld) [Volume fraction] 38.5 % 35 - 47 % [place] Hemoglobin (Bld) [Mass/Vol] 12.6 g/dL 11.7 - 16 g/dL [place] Interpretation and review of laboratory results Abnormal [place] Lymphocytes (Bld) [#/Vol] 1.6 10*3/uL 1 - 4.3 10*3/uL [place] Lymphocytes/100 WBC (Bld) 16.1 % Low 20 - 40 % [place] MCH (RBC) [Entitic mass] 28.5 pg 26 - 34 pg [place] MCHC (RBC) [Mass/Vol] 32.7 % 32 - 36 % [place] MCV (RBC) [Entitic vol] 87.2 fL 79 - 98 fL [place], [place] Monocytes (Bld) [#/Vol] 1.0 10*3/uL High 0 - 0.8 10*3/uL [place], [place] Monocytes/100 WBC (Bld) 10.4 % High 2 - 10 % [place], [place] Platelet mean volume (Bld) [Entitic vol] 8.1 fL 7.4 - 10.4 fL [place], [place] Platelets (Bld) [#/Vol] 508 10*3/uL High 140 - 440 10*3/uL [place] RBC (Bld) [#/Vol] 4.41 10*6/uL 3.8 - 5.2 10*6/uL [place] WBC (Bld) [#/Vol] 9.8 10*3/uL 3.6 - 10.7 10*3/uL [place] Test Performed by [facility], [address], [place], [place] [address] [place] Comprehensive Metabolic Pane gigi 09-26-2020 Albumin [Mass/Vol] 4.0 g/dL 3.5 - 5 g/dL [place] ALP [Catalytic activity/Vol] 120 U/L 38 - 126 U/L [place] ALT [Catalytic activity/Vol] 127 U/L High 0 - 34 U/L [place] Comment on above: The ALT test is perf ormed by an updated assay method. Please note that the reference intervals have been changed and are now sex specific. Anion gap [Moles/Vol] 12 mmol/L [place] AST [Catalytic activity/Vol] 64 U/L High 15 - 46 U/L [place] Bilirubin Ql (U) 1.4 mg/dL High 0.2 - 1.3 mg/dL [place] Calcium [Mass/Vol] 8.9 mg/dL 8.4 - 10. 4 mg/dL [place] Chloride [Moles/Vol] 97 mmol/L Low 98 - 10 7 mmol/L [place] CO2 [Moles/Vol] 24 mmol/L 22 - 30 mmol/L [place] Creatinine [Mass/Vol] 1.13 mg/dL 0.52 - 1.25 mg/dL [place] EGFR IF NonAfrican [place] 55.1 mL/min Abnormal >60 [place] Comment on above: KDIGO guidelines pro [...] MDRD (S/P/Bld) [Vol rate/Area] 63.8 mL/min/{1.73_m2} >60 [facility] Glucose [Mass/Vol] 207 mg/dL High 70 - 100 mg/dL [facility], [place] Interpretation and review of laboratory results Abnormal [facility], [place] Potassium [Moles/Vol] 4.8 mmol/L 3.5 - 5.1 mmol/L [facility] [employer] [place] Protein [Mass/Vol] 7.7 g/dL 6.3 - 8.2 g/dL [place] Sodium [Moles/Vol] 133 mmol/L Low 135 - 145 mmol/L [place] Urea nitrogen [Mass/Vol] 32 mg/dL High 7 - 20 mg/dL [facility] [place], [place] Test Performed by [facility], [address] [address] [place], [place] [id number] [place] [address] POCT Glucoseon 09-26-2020 Glucose [Mass/Vol] 124 mg/dL High 70 - 100 mg/dL [place], [place] Comment on above: Test performed by emids ucose meter. Results may be 10%-15% lower than serum/plasma values. (CLIA ID [id number]) Interpretation and review of laboratory results [facility]normal [facility] Test Performed by [facility], [address] [place], [place] [address] [place], [place] Glucose [Mass/Vol] 225 mg/dL High 70 - 100 mg/dL [place] Comment on above: Test performed by gl ucose meter. Results may be 10%-15% lower than serum/plasma values. (CLIA ID [id number]) Interpretation and review of laboratory results Abnormal [employer], [place] Test Performed by [facility], [address], [place], [place] [address] [facility], [facility] Glucose [Mass/Vol] 308 mg/dL High 70 - 100 mg/dL [facility] [place], [place] Comment on above: Test performed by gl ucose meter. Results may be 10%-15% lower than serum/plasma values. (CLIA ID [id number]) Interpretation and review of laboratory results Abnormal [facility] [place] Test Performed by [facility], [address], [place], [place] [address] [facility] [place] Glucose [Mass/Vol] 259 mg/dL High 70 - 100 mg/dL [facility] [place] Comment on above: Test performed by gl ucose meter. Results may be 10%-15% lower than serum/plasma values. (CLIA ID [id number]) Interpretation and review of laboratory results Abnormal [facility] [place] Test Performed by [facility], [address], [place] [address] [facility] [place] Glucose [Mass/Vol] 223 mg/dL High 70 - 100 mg/dL [facility] [place] Comment on above: Test performed by gl ucose meter. Results may be 10%-15% lower than serum/plasma values. (CLIA ID [id number]) Interpretation and review of laboratory results Abnormal [facility] [place] Test Performed by [facility], [address], [place], [place] [address] [facility] [place] ECHO Complete 2D W Doppler W Coloron 09-25-2020 [facility], [facility] Incoming Cardiology Results From [facility] - 09/25/2020 4:03 PM EST TRANSTHORACIC ECHOCARDIOGRAM PATIENT: Will Jacinto STUDY DATE: 09/25/2020 : 1965 AGE: 54 HT/WT: 167.6 cm (66 155.9 kg in) (343 lb) GENDER: F BP: 130 / 87 LOCATION: [facility] PATIENT Inpatient [facility] STATUS: *ORDERING PHYSICIAN: * Priyank Rios MD *READING PHYSICIAN: * Ga Davenport MD *DETECTIVE NARCOTICS AND VICE: * Jayda Richardson INDICATIONS: SVT. CONCLUSIONS SUMMARY: [...] Ga Davenport MD 09/25/2020 16:02 Prior Signatures: [facility] [place] TRANSTHORACIC ECHOCARDIOGRAM PATIENT: Will Jacinto STUDY DATE: 09/25/2020 : 1965 AGE: 54 HT/WT: 167.6 cm (66 155.9 kg in) (343 lb) GENDER: F BP: 130 / 87 LOCATION: [facility] PATIENT Inpatient [facility] STATUS: *ORDERING PHYSICIAN: * Priyank Rios MD *READING PHYSICIAN: * Ga Davenport MD *DETECTIVE NARCOTICS AND VICE: * Jayda Rcihardson INDICATIONS: SVT. CONCLUSIONS SUMMARY: Procedure narrative: Image [...] Ga Davenport MD 09/25/2020 16:02 Prior Signatures: [facility] POCT Glucoseon 09-25-2020 Glucose [Mass/Vol] 126 mg/dL High 70 - 100 mg/dL [place] Comment on above: Test performed by emids ucose meter. Results may be 10%-15% lower than serum/plasma values. (CLIA ID [id number]) Interpretation and review of laboratory results Abnormal [place] Test Performed by [facility], [address] [place] [address] [place] Glucose [Mass/Vol] 124 mg/dL High 70 - 100 mg/dL [place] Comment on above: Test performed by emids ucose meter. Results may be 10%-15% lower than serum/plasma values. (CLIA ID [id number]) Interpretation and review of laboratory results Abnormal [facility] Test Performed by [facility], [address] [place], [place] [address] [place] Glucose [Mass/Vol] 173 mg/dL High 70 - 100 mg/dL [place] Comment on above: Test performed by emids ucose meter. Results may be 10%-15% lower than serum/plasma values. (CLIA ID [id number]) Interpretation and review of laboratory results Abnormal [place] Test Performed by [facility], [address], [place], [place] [address] [place] [address] Glucose [Mass/Vol] 121 mg/dL High 70 - 100 mg/dL [place], [place] Comment on above: Test performed by gl ucose meter. Results may be 10%-15% lower than serum/plasma values. (CLIA ID [id number]) Interpretation and review of laboratory results Abnormal [place], [place] Test Performed by [facility], [address] [place], [place] [id number] [place] [address] XR ABDOMEN (KUB) (SINGLE AP VIEW)on 09-25-2020 [facility] Incoming Radiology Results From [facility] - 09/25/2020 3:10 PM EST Patient Name: WILL JACINTO ---Diagnostic Radiology--- Exam Date/Time 09/25/2020 14:00:36 EST Exam CR Abdomen AP Ordering Physician DO HILL LISA Accession Number [id number] CPT4 Codes 09503 () Reason For Exam ileus Report CLINICAL [...] HARLAN Transcribed Date and Time: 09/25/2020 3:09 [place], [place] Patient Name: WILL ALVARADO ---Diagnostic Radiology--- Exam Date/Time 09/25/2020 14:00:36 EST Exam CR Abdomen AP Ordering Physician DO HILL LISA Accession Number [id number] CPT4 Codes 28636 () Reason For Exam ileus Report CLINICAL [...] HARLAN Transcribed Date and Time: 09/25/2020 3:09 [place], [place] CBC Auto Differentialon 09-08 Absolute Baso # 0.0 10*3/uL 0 - 0.2 10*3/uL [place], [place] Absolute Neut # 5.3 10*3/uL 1.8 - 7 10*3/uL [place], [place] Basophils/100 WBC (Bld) 0.4 % 0 - 2 % [place] Eosinophils (Bld) [#/Vol] 0.1 10*3/uL 0 - 0.5 10*3/uL [place], [place] Eosinophils/100 WBC (Bld) 1.6 % 1 - 6 % [place] Erythrocyte distribution width (RBC) [Ratio] 15.8 % High 11.5 - 14.5 % [place] Granulocytes/100 WBC (Bld) 74.9 % 40 - 80 % [place] Hematocrit (Bld) [Volume fraction] 59.6 % High 35 - 47 % [place] Hemoglobin (Bld) [Mass/Vol] 19.3 g/dL High 11.7 - 16 g/dL [place] Interpretation and review of laboratory results Abnormal [place] Lymphocytes (Bld) [#/Vol] 1.0 10*3/uL 1 - 4.3 10*3/uL [place] Lymphocytes/100 WBC (Bld) 14.1 % Low 20 - 40 % [place] MCH (RBC) [Entitic mass] 28.3 pg 26 - 34 pg [place] MCHC (RBC) [Mass/Vol] 32.4 % 32 - 36 % [place] MCV (RBC) [Entitic vol] 87.2 fL 79 - 98 fL [place], [place] Monocytes (Bld) [#/Vol] 0.6 10*3/uL 0 - 0.8 10*3/uL [place], [place] Monocytes/100 WBC (Bld) 9.0 % 2 - 10 % [place], [place] Platelet mean volume (Bld) [Entitic vol] 7.5 fL 7.4 - 10.4 fL [place], [place] Platelets (Bld) [#/Vol] 215 10*3/uL 140 - 440 10*3/uL [place] RBC (Bld) [#/Vol] 6.83 10*6/uL High 3.8 - 5.2 10*6/uL [place] WBC (Bld) [#/Vol] 7.1 10*3/uL 3.6 - 10.7 10*3/uL [place] Test Performed by [facility], [address] [place] [address] [place], [place] Comprehensive Metabolic Pane gigi 09-24-2020 Albumin [Mass/Vol] 3.6 g/dL 3.5 - 5 g/dL [place] ALP [Catalytic activity/Vol] 116 U/L 38 - 126 U/L [place] ALT [Catalytic activity/Vol] 113 U/L High 0 - 34 U/L [place], [place] Comment on above: The ALT test is perf ormed by an updated assay method. Please note that the reference intervals have been changed and are now sex specific. Anion gap [Moles/Vol] 8 mmol/L [place], [place] AST [Catalytic activity/Vol] 53 U/L High 15 - 46 U/L [place] Bilirubin Ql (U) 0.9 mg/dL 0.2 - 1.3 mg/dL [place] Calcium [Mass/Vol] 8.7 mg/dL 8.4 - 10. 4 mg/dL [place] Chloride [Moles/Vol] 99 mmol/L 98 - 10 7 mmol/L [place] CO2 [Moles/Vol] 27 mmol/L 22 - 30 mmol/L [place] Creatinine [Mass/Vol] 1.97 mg/dL High 0.52 - 1.25 mg/dL [place], [place] EGFR IF NonAfrican [place] 28.1 mL/min Abnormal >60 [place], [place] Comment on above: KDIGO guidelines pro [...] (S/P/Bld) [Vol rate/Area] 32.6 mL/min/{1.73_m2} Abnormal >60 [place], [place] Glucose [Mass/Vol] 110 mg/dL High 70 - 100 mg/dL [place] Interpretation and review of laboratory results Abnormal [place] Potassium [Moles/Vol] 3.7 mmol/L 3.5 - 5.1 mmol/L [place] Protein [Mass/Vol] 6.7 g/dL 6.3 - 8.2 g/dL [place] Sodium [Moles/Vol] 133 mmol/L Low 135 - 145 mmol/L [place], [place] Urea nitrogen [Mass/Vol] 29 mg/dL High 7 - 20 mg/dL [place] Test Performed by [facility], [address] [place], [place] [id number] [place] [address] MAGNESIUMon 09-24-2020 Magnesium [Mass/Vol] 1.7 mg/dL 1.6 - 2 .3 mg/dL [place], [place] Test Performed by [facility], [address] POCT Glucoseon 09-24-2020 Glucose [Mass/Vol] 119 mg/dL High 70 - 100 mg/dL [place] Comment on above: Test performed by gl ucose meter. Results may be 10%-15% lower than serum/plasma values. (CLIA ID [id number]) Interpretation and review of laboratory results Abnormal [facility] [employer] [facility] [place] Test Performed by [facility], [address] Glucose [Mass/Vol] 187 mg/dL High 70 - 100 mg/dL [place], [place] Comment on above: Test performed by gl ucose meter. Results may be 10%-15% lower than serum/plasma values. (CLIA ID [id number]) Interpretation and review of laboratory results Abnormal [facility] [employer] [place], [place] Test Performed by [facility], [address] Glucose [Mass/Vol] 237 mg/dL High 70 - 100 mg/dL [place] Comment on above: Test performed by gl ucose meter. Results may be 10%-15% lower than serum/plasma values. (CLIA ID [id number]) Interpretation and review of laboratory results Abnormal [facility] [employer] [place], [place] Test Performed by [facility], [address] Glucose [Mass/Vol] 119 mg/dL High 70 - 100 mg/dL [place], [place] Comment on above: Test performed by gl ucose meter. Results may be 10%-15% lower than serum/plasma values. (CLIA ID [id number]) Interpretation and review of laboratory results Abnormal [place], [place] Test Performed by [facility], [address], [place], [place] [address] [place], [place] Surgical Pathologyon 020 Sodium [Moles/Vol] SEE BELOW [place], [place] 1 [id number] [facility] DEPART[facility] PATHOLOGY AND LABORATORY MEDICINE [address] [place] [address] Fax - FINAL SURGICAL PATHOLOGY REPORT NAME: WILL JACINTO : 1965 54 [facility] NO[id number] LOCATION: [facility] 260 1 PROCEDURE 09/19/2020 DATE: SURGEON: SERGIO [...] by the clinical laboratories of [facility]. They have not been cleared by [...] negativity on decalcified specimens. Case reviewed at [place] [address] [place] [address]. DEPARTMENT OF PATHOLOGY AND LABORATORY MEDICINE [place], [place] [address] [place], [place] Troponinon 09-24-2020 Troponin I.cardiac [Mass/Vol] ng/mL 0 - 0.034 ng/mL [place], [place] Comment on above: . Test Performed by [facility], [address] [place], [place] [address] Chemistry specimen is slightly hemolyzed. Interpret results with caution. [place], [place] XR ABDOMEN (KUB) (SINGLE AP VIEW)on 09-24-2020 [facility] Incoming Radiology Results From [facility] - 09/24/2020 9:24 AM EST Patient Name: WILL JACINTO ---Diagnostic Radiology--- Exam Date/Time 09/24/2020 09:15:19 EST Exam CR Abdomen AP Ordering Physician DO HILL LISA Accession Number [id number] CPT4 Codes 37571 () Reason For Exam ileus Report Abdomen [...] lateral decubitus views. Report Dictated on Workstation: [employer] --- Final --- Dictating Physician: MD UNDERWOOD BRIAN Signed Date and Time: 09/24/2020 9:22 am Signed by: MD UNDERWOOD BRIAN Transcribed Date and Time: 09/24/2020 9:23 [place], [place] Patient Name: WILL ALVARADO ---Diagnostic Radiology--- Exam Date/Time 09/24/2020 09:15:19 EST Exam CR Abdomen AP Ordering Physician DO HILL LISA Accession Number [id number] CPT4 Codes 68172 () Reason For Exam ileus Report Abdomen [...] lateral decubitus views. Report Dictated on Workstation: [employer] --- Final --- Dictating Physician: MD UNDERWOOD BRIAN Signed Date and Time: 09/24/2020 9:22 am Signed by: MD UNDERWOOD BRIAN Transcribed Date and Time: 09/24/2020 9:23 [place], [place] CBC Auto Differentialon - Absolute Baso # 0.1 10*3/uL 0 - 0.2 10*3/uL [place], [place] Absolute Neut # 8.9 10*3/uL High 1.8 - 7 10*3/uL [place], [place] Basophils/100 WBC (Bld) 0.7 % 0 - 2 % [place], [place] Eosinophils (Bld) [#/Vol] 0.1 10*3/uL 0 - 0.5 10*3/uL [place] Eosinophils/100 WBC (Bld) 1.1 % 1 - 6 % [place] Erythrocyte distribution width (RBC) [Ratio] 15.2 % High 11.5 - 14.5 % [place] Granulocytes/100 WBC (Bld) 73.0 % 40 - 80 % [place] Hematocrit (Bld) [Volume fraction] 35.4 % 35 - 47 % [place] Hemoglobin (Bld) [Mass/Vol] 11.8 g/dL 11.7 - 16 g/dL [place], [place] Interpretation and review of laboratory results Abnormal [place] Lymphocytes (Bld) [#/Vol] 1.9 10*3/uL 1 - 4.3 10*3/uL [place] Lymphocytes/100 WBC (Bld) 15.7 % Low 20 - 40 % [place] MCH (RBC) [Entitic mass] 29.0 pg 26 - 34 pg [place] MCHC (RBC) [Mass/Vol] 33.4 % 32 - 36 % [place] MCV (RBC) [Entitic vol] 86.8 fL 79 - 98 fL [place], [place] Monocytes (Bld) [#/Vol] 1.2 10*3/uL High 0 - 0.8 10*3/uL [place], [place] Monocytes/100 WBC (Bld) 9.5 % 2 - 10 % [place], [place] Platelet mean volume (Bld) [Entitic vol] 7.3 fL Low 7.4 - 10.4 fL [place], [place] Platelets (Bld) [#/Vol] 454 10*3/uL High 140 - 440 10*3/uL [place] RBC (Bld) [#/Vol] 4.08 10*6/uL 3.8 - 5.2 10*6/uL [place] WBC (Bld) [#/Vol] 12.1 10*3/uL High 3.6 - 10.7 10*3/uL [place] Test Performed by [facility], [address], [place], [place] [address] [place], [place] Comprehensive Metabolic Pane gigi 09-23-2020 Albumin [Mass/Vol] 3.7 g/dL 3.5 - 5 g/dL [place] ALP [Catalytic activity/Vol] 150 U/L High 38 - 126 U/L [place] ALT [Catalytic activity/Vol] 126 U/L High 0 - 34 U/L [place] Comment on above: The ALT test is perf ormed by an updated assay method. Please note that the reference intervals have been changed and are now sex specific. Anion gap [Moles/Vol] 10 mmol/L [place], [place] AST [Catalytic activity/Vol] 42 U/L 15 - 46 U/L [place] Bilirubin Ql (U) 0.9 mg/dL 0.2 - 1.3 mg/dL [place] Calcium [Mass/Vol] 8.6 mg/dL 8.4 - 10. 4 mg/dL [place] Chloride [Moles/Vol] 93 mmol/L Low 98 - 10 7 mmol/L [place] CO2 [Moles/Vol] 24 mmol/L 22 - 30 mmol/L [place] Creatinine [Mass/Vol] 1.05 mg/dL 0.52 - 1.25 mg/dL [place] EGFR IF NonAfrican [place] 60.2 mL/min >60 [place], [place] Comment on above: KDIGO guidelines pro [...] MDRD (S/P/Bld) [Vol rate/Area] 69.8 mL/min/{1.73_m2} >60 [place], [place] Glucose [Mass/Vol] 242 mg/dL High 70 - 100 mg/dL [place] Interpretation and review of laboratory results Abnormal [place] Potassium [Moles/Vol] 3.9 mmol/L 3.5 - 5.1 mmol/L [place] Protein [Mass/Vol] 7.2 g/dL 6.3 - 8.2 g/dL [place], [place] Sodium [Moles/Vol] 127 mmol/L Low 135 - 145 mmol/L [place] Urea nitrogen [Mass/Vol] 26 mg/dL High 7 - 20 mg/dL [place] Test Performed by [facility], [address] POC Glucose, Whole Bloodon 1 11-23-2019 Glucose [Mass/Vol] mg/dL High 70 - 100 mg/dL [place] Comment on above: Test performed by gl ucose meter. Results may be 10%-15% lower than serum/plasma values. (CLIA ID [id number]) Interpretation and review of laboratory results Abnormal [place] Sodium [Moles/Vol] see below [place] Comment on above: No confirmation rece ived. Test Performed by [facility], [address] [place], [place] [id number] [place] [address] POCT Glucoseon 09-23-2020 Glucose [Mass/Vol] 171 mg/dL High 70 - 100 mg/dL [place] Comment on above: Test performed by gl ucose meter. Results may be 10%-15% lower than serum/plasma values. (CLIA ID [id number]) Interpretation and review of laboratory results Abnormal [place], [place] Test Performed by [facility], [address] [place] [address] [facility] Glucose [Mass/Vol] 278 mg/dL High 70 - 100 mg/dL [facility] [place] Comment on above: Test performed by gl ucose meter. Results may be 10%-15% lower than serum/plasma values. (CLIA ID [id number]) Interpretation and review of laboratory results Abnormal [facility] Test Performed by [facility], [address], [place], [place] [address] [facility] Glucose [Mass/Vol] 401 mg/dL High 70 - 100 mg/dL [facility] Comment on above: Test performed by gl ucose meter. Results may be 10%-15% lower than serum/plasma values. (CLIA ID [id number]) Interpretation and review of laboratory results Abnormal [facility] Test Performed by [facility], [address], [place], [place] [address] [facility] Glucose [Mass/Vol] 348 mg/dL High 70 - 100 mg/dL [facility] [place] Comment on above: Test performed by gl ucose meter. Results may be 10%-15% lower than serum/plasma values. (CLIA ID [id number]) Interpretation and review of laboratory results Abnormal [facility] [place] Test Performed by [facility], [address], [place], [place] [address] [facility] Glucose [Mass/Vol] 231 mg/dL High 70 - 100 mg/dL [facility] [place] Comment on above: Test performed by gl ucose meter. Results may be 10%-15% lower than serum/plasma values. (CLIA ID [id number]) Interpretation and review of laboratory results Abnormal [facility] [place] Test Performed by [facility], [address], [place], [place] [address] [facility] XR ABDOMEN (KUB) (SINGLE AP VIEW)on 09-23-2020 [facility] Incoming Radiology Results From [facility] - 09/23/2020 11:02 AM EST Patient Name: WILL JACINTO ---Diagnostic Radiology--- Exam Date/Time 09/23/2020 10:26:17 EST Exam CR Abdomen AP Ordering Physician MD DAVID RICHARD H Accession Number [id number] CPT4 Codes 66024 () Reason For Exam ileus, improving Report [...] RISA Transcribed Date and Time: 09/23/2020 11:01 [place], [place] Patient Name: WILL ALVARADO ---Diagnostic Radiology--- Exam Date/Time 09/23/2020 10:26:17 EST Exam CR Abdomen AP Ordering Physician MD DAVID RICHARD H Accession Number [id number] CPT4 Codes 42769 () Reason For Exam ileus, improving Report [...] RISA Transcribed Date and Time: 09/23/2020 11:01 [place], [place] CBC Auto Differentialon 09-08 Absolute Baso # 0.1 10*3/uL 0 - 0.2 10*3/uL [place] Absolute Neut # 6.8 10*3/uL 1.8 - 7 10*3/uL [place] Basophils/100 WBC (Bld) 0.9 % 0 - 2 % [place], [place] Eosinophils (Bld) [#/Vol] 0.2 10*3/uL 0 - 0.5 10*3/uL [place] Eosinophils/100 WBC (Bld) 1.9 % 1 - 6 % [place] Erythrocyte distribution width (RBC) [Ratio] 14.9 % High 11.5 - 14.5 % [place] Granulocytes/100 WBC (Bld) 69.3 % 40 - 80 % [place] Hematocrit (Bld) [Volume fraction] 35.1 % 35 - 47 % [place] Hemoglobin (Bld) [Mass/Vol] 11.8 g/dL 11.7 - 16 g/dL [place] Interpretation and review of laboratory results Abnormal [place] Lymphocytes (Bld) [#/Vol] 1.8 10*3/uL 1 - 4.3 10*3/uL [place] Lymphocytes/100 WBC (Bld) 18.3 % Low 20 - 40 % [place] MCH (RBC) [Entitic mass] 29.0 pg 26 - 34 pg [place] MCHC (RBC) [Mass/Vol] 33.5 % 32 - 36 % [place] MCV (RBC) [Entitic vol] 86.4 fL 79 - 98 fL [place], [place] Monocytes (Bld) [#/Vol] 0.9 10*3/uL High 0 - 0.8 10*3/uL [place], [place] Monocytes/100 WBC (Bld) 9.6 % 2 - 10 % [place], [place] Platelet mean volume (Bld) [Entitic vol] 7.3 fL Low 7.4 - 10.4 fL [place] Platelets (Bld) [#/Vol] 474 10*3/uL High 140 - 440 10*3/uL [place] RBC (Bld) [#/Vol] 4.07 10*6/uL 3.8 - 5.2 10*6/uL [place] WBC (Bld) [#/Vol] 9.7 10*3/uL 3.6 - 10.7 10*3/uL [place] Test Performed by [facility], [address], [place], [place] [address] [place] Comprehensive Metabolic Pane gigi 09-22-2020 Albumin [Mass/Vol] 3.7 g/dL 3.5 - 5 g/dL [place] ALP [Catalytic activity/Vol] 125 U/L 38 - 126 U/L [place] ALT [Catalytic activity/Vol] 137 U/L High 0 - 34 U/L [place] Comment on above: The ALT test is perf ormed by an updated assay method. Please note that the reference intervals have been changed and are now sex specific. Anion gap [Moles/Vol] 5 mmol/L [place] AST [Catalytic activity/Vol] 51 U/L High 15 - 46 U/L [place] Bilirubin Ql (U) 0.7 mg/dL 0.2 - 1.3 mg/dL [place] Calcium [Mass/Vol] 9.0 mg/dL 8.4 - 10. 4 mg/dL [place] Chloride [Moles/Vol] 94 mmol/L Low 98 - 10 7 mmol/L [place] CO2 [Moles/Vol] 29 mmol/L 22 - 30 mmol/L [place] Creatinine [Mass/Vol] 0.88 mg/dL 0.52 - 1.25 mg/dL [place] EGFR IF NonAfrican [place] 74.5 mL/min >60 [place] Comment on above: KDIGO guidelines pro [...] MDRD (S/P/Bld) [Vol rate/Area] 86.4 mL/min/{1.73_m2} >60 [place] Glucose [Mass/Vol] 269 mg/dL High 70 - 100 mg/dL [place] Interpretation and review of laboratory results Abnormal [place] Potassium [Moles/Vol] 4.1 mmol/L 3.5 - 5.1 mmol/L [place] Protein [Mass/Vol] 6.9 g/dL 6.3 - 8.2 g/dL [place] Sodium [Moles/Vol] 129 mmol/L Low 135 - 145 mmol/L [place] Urea nitrogen [Mass/Vol] 21 mg/dL High 7 - 20 mg/dL [place] Test Performed by [facility], [address] [place], [place] [id number] [place] [address] POCT Glucoseon 09-22-2020 Glucose [Mass/Vol] 363 mg/dL High 70 - 100 mg/dL [place] Comment on above: Test performed by gl ucose meter. Results may be 10%-15% lower than serum/plasma values. (CLIA ID [id number]) Interpretation and review of laboratory results Abnormal [place] Test Performed by [facility], [address] [place] [address] [place] Glucose [Mass/Vol] 355 mg/dL High 70 - 100 mg/dL [place] Comment on above: Test performed by gl ucose meter. Results may be 10%-15% lower than serum/plasma values. (CLIA ID [id number]) Interpretation and review of laboratory results Abnormal [place] Test Performed by [facility], [address] [place], [place] [address] [place] [address] Glucose [Mass/Vol] 328 mg/dL High 70 - 100 mg/dL [place] Comment on above: Test performed by gl ucose meter. Results may be 10%-15% lower than serum/plasma values. (CLIA ID [id number]) Interpretation and review of laboratory results Abnormal [place] Test Performed by [facility], [address], [place], [place] [address] [facility] Glucose [Mass/Vol] 277 mg/dL High 70 - 100 mg/dL [facility] [place] Comment on above: Test performed by gl ucose meter. Results may be 10%-15% lower than serum/plasma values. (CLIA ID [id number]) Interpretation and review of laboratory results Abnormal [place] Test Performed by [facility], [address], [place], [place] [address] [facility] X[facility] ABDOMEN (KUB) (SINGLE AP VIEW)on 09-22-2020 Patient Name: WILL ALVARADO ---Diagnostic Radiology--- Exam Date/Time 09/22/2020 07:41:53 EST Exam CR Abdomen AP Ordering Physician MD JOANN, [place]LAH Accession Number [id number] CPT4 Codes 70343 () Reason For Exam ileus Report ABDOMEN: [...] RACHEL Transcribed Date and Time: 09/22/2020 8:32 [place] Nati Jones Incoming Radiology Results From [facility] - 09/22/2020 8:33 AM EST Patient Name: WILL JACINTO ---Diagnostic Radiology--- Exam Date/Time 09/22/2020 07:41:53 EST Exam CR Abdomen AP Ordering Physician MD JOANN, KYLAH Garcia Accession Number [id number] CPT4 Codes 01914 () Reason For Exam ileus Report ABDOMEN: [...] RACHEL Transcribed Date and Time: 09/22/2020 8:32 [place] GLUCOSEon 09-21-2020 Glucose [Mass/Vol] 461 mg/dL Critically high 70 - 1 00 mg/dL [facility] Interpretation and review of laboratory results Abnormal [employer], [place] Test Performed by [facility], [address] [place], [place] [id number] [place], [place] [address] POCT Glucoseon 09-21-2020 Glucose [Mass/Vol] 446 mg/dL High 70 - 100 mg/dL [facility] Comment on above: Test performed by gl ucose meter. Results may be 10%-15% lower than serum/plasma values. (CLIA ID [id number]) Interpretation and review of laboratory results Abnormal [employer], [place] Test Performed by [facility], [address] [place], [place] [address] [place] Glucose [Mass/Vol] 440 mg/dL High 70 - 100 mg/dL [facility] Comment on above: Test performed by gl ucose meter. Results may be 10%-15% lower than serum/plasma values. (CLIA ID [id number]) Interpretation and review of laboratory results Abnormal [employer], [place] Test Performed by [facility], [address] [place] [address] [facility] Glucose [Mass/Vol] 138 mg/dL High 70 - 100 mg/dL [place], [place] Comment on above: Test performed by gl ucose meter. Results may be 10%-15% lower than serum/plasma values. (CLIA ID [id number]) Interpretation and review of laboratory results Abnormal [place] Test Performed by [facility], [address], [place], [place] [address] [place] Basic Metabolic Panelon 11- Anion gap [Moles/Vol] 6 mmol/L [place], [place] Calcium [Mass/Vol] 8.7 mg/dL 8.4 - 10. 4 mg/dL [place] Chloride [Moles/Vol] 101 mmol/L 98 - 10 7 mmol/L [place] CO2 [Moles/Vol] 27 mmol/L 22 - 30 mmol/L [place] Creatinine [Mass/Vol] 0.81 mg/dL 0.52 - 1.25 mg/dL [place] EGFR IF NonAfrican [place] 82.4 mL/min >60 [place], [place] Comment on above: KDIGO guidelines pro [...] MDRD (S/P/Bld) [Vol rate/Area] mL/min/{1.73_m2} >60 mL/min [place] Glucose [Mass/Vol] 259 mg/dL High 70 - 100 mg/dL [facility] [place] Interpretation and review of laboratory results Abnormal [facility], [place] Potassium [Moles/Vol] 4.5 mmol/L 3.5 - 5.1 mmol/L [facility], [place] Sodium [Moles/Vol] 134 mmol/L Low 135 - 145 mmol/L [place], [place] Urea nitrogen [Mass/Vol] 22 mg/dL High 7 - 20 mg/dL [facility], [place] Test Performed by [facility], [address], [place], [place] [address] [place], [place] POCT Glucoseon 09-20-2020 Glucose [Mass/Vol] 129 mg/dL High 70 - 100 mg/dL [place] Comment on above: Test performed by gl ucose meter. Results may be 10%-15% lower than serum/plasma values. (CLIA ID [id number]) Interpretation and review of laboratory results Abnormal [facility], [place] Test Performed by [facility], [address], [place], [place] [id number] [place] [address] Glucose [Mass/Vol] 192 mg/dL High 70 - 100 mg/dL [place] Comment on above: Test performed by gl ucose meter. Results may be 10%-15% lower than serum/plasma values. (CLIA ID [id number]) Interpretation and review of laboratory results Abnormal [facility], [place] Test Performed by [facility], [address], [place], [place] [id number] [place] [address] Glucose [Mass/Vol] 352 mg/dL High 70 - 100 mg/dL [place] Comment on above: Test performed by gl ucose meter. Results may be 10%-15% lower than serum/plasma values. (CLIA ID [id number]) Interpretation and review of laboratory results Abnormal [facility], [place] Test Performed by [facility], [address], [place], [place] [address] [facility], [place] Glucose [Mass/Vol] 283 mg/dL High 70 - 100 mg/dL [facility], [place] Comment on above: Test performed by gl ucose meter. Results may be 10%-15% lower than serum/plasma values. (CLIA ID [id number]) Interpretation and review of laboratory results Abnormal [place], [place] Test Performed by [facility], [address], [place], [place] [address] [place] XR ABDOMEN (KUB) (SINGLE AP VIEW)on 09-20-2020 [facility] Incoming Radiology Results From [facility] - 09/20/2020 10:48 AM EST Patient Name: WILL JACINTO ---Diagnostic Radiology--- Exam Date/Time 09/20/2020 08:59:00 EST Exam CR Abdomen AP Ordering Physician DO HILL LISA Accession Number [id number] CPT4 Codes 92431 () Reason For Exam ileus Report EXAMINATION: [...] NELSON Transcribed Date and Time: 09/20/2020 10:48 [place] Patient Name: WILL ALVARADO ---Diagnostic Radiology--- Exam Date/Time 09/20/2020 08:59:00 EST Exam CR Abdomen AP Ordering Physician DO HILL LISA Accession Number [id number] CPT4 Codes 57443 () Reason For Exam ileus Report EXAMINATION: [...] NELSON Transcribed Date and Time: 09/20/2020 10:48 [place], [place] CBC Auto Differentialon 09-08 Erythrocyte distribution width (RBC) [Ratio] 15.3 % High 11.5 - 14.5 % [place], [place] Hematocrit (Bld) [Volume fraction] 32.5 % Low 35 - 47 % [place] Hemoglobin (Bld) [Mass/Vol] 10.6 g/dL Low 11.7 - 16 g/dL [place] Interpretation and review of laboratory results Abnormal [place] MCH (RBC) [Entitic mass] 29.0 pg 26 - 34 pg [place] MCHC (RBC) [Mass/Vol] 32.7 % 32 - 36 % [place] MCV (RBC) [Entitic vol] 88.7 fL 79 - 98 fL [place], [place] Platelet mean volume (Bld) [Entitic vol] 7.3 fL Low 7.4 - 10.4 fL [place], [place] Platelets (Bld) [#/Vol] 519 10*3/uL High 140 - 440 10*3/uL [place] RBC (Bld) [#/Vol] 3.67 10*6/uL Low 3.8 - 5.2 10*6/uL [place] WBC (Bld) [#/Vol] 8.5 10*3/uL 3.6 - 10.7 10*3/uL [place] Test Performed by [facility], [address], [place], [place] [address] [place], [place] Comprehensive Metabolic Pane gigi 09-19-2020 Albumin [Mass/Vol] 3.6 g/dL 3.5 - 5 g/dL [place] ALP [Catalytic activity/Vol] 128 U/L High 38 - 126 U/L [place] ALT [Catalytic activity/Vol] 125 U/L High 0 - 34 U/L [place], [place] Comment on above: The ALT test is perf ormed by an updated assay method. Please note that the reference intervals have been changed and are now sex specific. Anion gap [Moles/Vol] 7 mmol/L [place], [place] AST [Catalytic activity/Vol] 68 U/L High 15 - 46 U/L [place] Bilirubin Ql (U) 0.6 mg/dL 0.2 - 1.3 mg/dL [place] Calcium [Mass/Vol] 8.9 mg/dL 8.4 - 10. 4 mg/dL [place] Chloride [Moles/Vol] 99 mmol/L 98 - 10 7 mmol/L [place] CO2 [Moles/Vol] 25 mmol/L 22 - 30 mmol/L [place] Creatinine [Mass/Vol] 0.88 mg/dL 0.52 - 1.25 mg/dL [place] EGFR IF NonAfrican [place] 74.5 mL/min >60 [place], [place] Comment on above: KDIGO guidelines pro [...] MDRD (S/P/Bld) [Vol rate/Area] 86.4 mL/min/{1.73_m2} >60 [place] Glucose [Mass/Vol] 395 mg/dL High 70 - 100 mg/dL [place] Interpretation and review of laboratory results Abnormal [facility], [place] Potassium [Moles/Vol] 5.8 mmol/L High 3.5 - 5.1 mmol/L [facility] [place] Protein [Mass/Vol] 7.2 g/dL 6.3 - 8.2 g/dL [facility] [place] Sodium [Moles/Vol] 131 mmol/L Low 135 - 145 mmol/L [facility] Urea nitrogen [Mass/Vol] 29 mg/dL High 7 - 20 mg/dL [facility] Test Performed by [facility], [address], [place], [place] [address] [facility] Manual Differentialon 2019 Absolute Baso # 0.0 10*3/uL 0 - 0.2 10*3/uL [facility] Absolute Eos # 0.1 10*3/uL 0 - 0.5 10*3/uL [facility] [place] Absolute Lymph # 0.9 10*3/uL Low 1.1 - 4.5 10*3/uL [facility] Absolute Cavalier # 0.6 10*3/uL 0.2 - 1.1 10*3/uL [facility] Absolute Neut # 6.5 10*3/uL 2.2 - 8.2 10*3/uL [facility] Anisocytosis Ql (Bld) Slight [facility] Bands 1 % 0 - 3 % [facility] [place] Basophils 0 % 0 - 2 % [facility] [place] Eosinophils 1 % 1 - 6 % [facility] Hypochromia Slight [facility] Interpretation and review of laboratory results Abnormal [facility] Lymphocytes 11 % Low 20 - 40 % [facility] Metamyelocytes 4 % Abnormal <1 [facility] Monocytes 7 % 2 - 10 % [facility] [place] Polychromasia Slight [facility] [place] RBC morphology finding Nom (Bld) ABNORMAL [facility] Seg Neutrophils 76 % 40 - 80 % [facility] TOTAL CELLS COUNTED 100 [facility] Test Performed by [facility], [address], [place], [place] [address] [facility] Otheron 09-19-2020 Interpretation and review of laboratory results Abnormal [employer] Test Performed by [facility], [address], [place], [place] [address] [facility] [place] POCT Glucoseon 09-19-2020 Glucose [Mass/Vol] 286 mg/dL High 70 - 100 mg/dL [facility] Comment on above: Test performed by gl ucose meter. Results may be 10%-15% lower than serum/plasma values. (CLIA ID [id number]) Interpretation and review of laboratory results Abnormal [employer] Test Performed by [facility], [address], [place], [place] [address] [facility] [employer] Glucose [Mass/Vol] 395 mg/dL High 70 - 100 mg/dL [facility] [employer] Comment on above: Test performed by gl ucose meter. Results may be 10%-15% lower than serum/plasma values. (CLIA ID [id number]) Interpretation and review of laboratory results Abnormal [employer] Test Performed by [facility], [address], [place], [place] [address] [facility] [place] Glucose [Mass/Vol] 406 mg/dL High 70 - 100 mg/dL [facility] Comment on above: Test performed by gl ucose meter. Results may be 10%-15% lower than serum/plasma values. (CLIA ID [id number]) Glucose [Mass/Vol] 412 mg/dL High 70 - 100 mg/dL [facility] Comment on above: Test performed by gl ucose meter. Results may be 10%-15% lower than serum/plasma values. (CLIA ID [id number]) XR ABDOMEN (KUB) (SINGLE AP VIEW)on 09-19-2020 [facility] Incoming Radiology Results From [facility] - 09/19/2020 1:20 PM EST Patient Name: WILL JACINTO ---Diagnostic Radiology--- Exam Date/Time 09/19/2020 12:13:39 EST Exam CR Abdomen AP Ordering Physician MD JOANN, [place]LAH Garcia Accession Number [id number] CPT4 Codes 81378 () Reason For Exam ileus fu Report [...] KRIKOR Transcribed Date and Time: 09/19/2020 1:20 [place], [place] Patient Name: WILL ALVARADO ---Diagnostic Radiology--- Exam Date/Time 09/19/2020 12:13:39 EST Exam CR Abdomen AP Ordering Physician MD DAVID RICHARD H Accession Number [id number] CPT4 Codes 60965 () Reason For Exam ileus fu Report [...] KRIKOR Transcribed Date and Time: 09/19/2020 1:20 [place], [place] Basic Metabolic Panelon 09-08 Anion gap [Moles/Vol] 10 mmol/L [place] Calcium [Mass/Vol] 9.0 mg/dL 8.4 - 10. 4 mg/dL [place] Chloride [Moles/Vol] 99 mmol/L 98 - 10 7 mmol/L [place] CO2 [Moles/Vol] 25 mmol/L 22 - 30 mmol/L [place] Creatinine [Mass/Vol] 0.99 mg/dL 0.52 - 1.25 mg/dL [place] EGFR IF NonAfrican [place] 64.6 mL/min >60 [place] Comment on above: KDIGO guidelines pro [...] MDRD (S/P/Bld) [Vol rate/Area] 74.9 mL/min/{1.73_m2} >60 [place] Glucose [Mass/Vol] 310 mg/dL High 70 - 100 mg/dL [place] Interpretation and review of laboratory results Abnormal [place] Potassium [Moles/Vol] 5.3 mmol/L High 3.5 - 5.1 mmol/L [place] Sodium [Moles/Vol] 134 mmol/L Low 135 - 145 mmol/L [place] Urea nitrogen [Mass/Vol] 35 mg/dL High 7 - 20 mg/dL [place] Test Performed by [facility], [address], [place], [place] [address] [place] Comprehensive Metabolic Pane l w/ Reflex to MGon 09-18-2020 Albumin [Mass/Vol] 3.9 g/dL 3.5 - 5 g/dL [place] ALP [Catalytic activity/Vol] 133 U/L High 38 - 126 U/L [place] ALT [Catalytic activity/Vol] 104 U/L High 0 - 34 U/L [place] Comment on above: The ALT test is perf ormed by an updated assay method. Please note that the reference intervals have been changed and are now sex specific. Anion gap [Moles/Vol] 8 mmol/L [place] AST [Catalytic activity/Vol] 74 U/L High 15 - 46 U/L [place] Bilirubin Ql (U) 0.8 mg/dL 0.2 - 1.3 mg/dL [place] Calcium [Mass/Vol] 9.2 mg/dL 8.4 - 10. 4 mg/dL [place] Chloride [Moles/Vol] 104 mmol/L 98 - 10 7 mmol/L [place] CO2 [Moles/Vol] 26 mmol/L 22 - 30 mmol/L [place] Creatinine [Mass/Vol] 0.97 mg/dL 0.52 - 1.25 mg/dL [place] EGFR IF NonAfrican [place] 66.3 mL/min >60 [place] Comment on above: KDIGO guidelines pro [...] MDRD (S/P/Bld) [Vol rate/Area] 76.8 mL/min/{1.73_m2} >60 [facility], [place] Glucose [Mass/Vol] 175 mg/dL High 70 - 100 mg/dL [facility], [place] Interpretation and review of laboratory results Abnormal [place] Potassium [Moles/Vol] 5.5 mmol/L High 3.5 - 5.1 mmol/L [facility], [place] Protein [Mass/Vol] 7.8 g/dL 6.3 - 8.2 g/dL [facility], [place] Sodium [Moles/Vol] 138 mmol/L 135 - 145 mmol/L [place] Urea nitrogen [Mass/Vol] 40 mg/dL High 7 - 20 mg/dL [place] Test Performed by [facility], [address] [place] [address] EKG 12 Lead - Chest Painon 1 11-18-2019 [facility] Incoming Cardiology Results From [facility] - 09/18/2020 4:47 PM EST [facility] Test Date: 2020-09-17 Pat Name: Will Jacinto Department: 01 Room: 268 Gender: F Publications Manager: CHELO : 1965 Requested By: ART ZENG Order Number: [id number] Reading MD: Justin Ramirez Measurements Intervals Lynn Rate: 82 P: 37 NE: 172 QRS: -39 QRSD: 110 T: 26 QT: 376 QTc: 439 Interpretive Statements SINUS RHYTHM NONSPECIFIC IVCD WITH LAD LEFT VENTRICULAR HYPERTROPHY Compared to ECG 06/24/2018 21:26:56 Intraventricular conduction delay now present Electronically Signed On 09-18-2020 16:46:18 EST by Justin Ramirez [facility], [facility] Test Date: 2020-09-17 Pat Name: Will Jacinto Department: 01 Room: 268 Gender: F Publications Manager: CHELO : 1965 Requested By: ART ZENG Order Number: [id number] Reading MD: Justin Ramirez Measurements Intervals Lynn Rate: 82 P: 37 NE: 172 QRS: -39 QRSD: 110 T: 26 QT: 376 QTc: 439 Interpretive Statements SINUS RHYTHM NONSPECIFIC IVCD WITH LAD LEFT VENTRICULAR HYPERTROPHY Compared to ECG 06/24/2018 21:26:56 Intraventricular conduction delay now present Electronically Signed On 09-18-2020 16:46:18 EST by Justin Ramirez [place] POCT Glucoseon 09-18-2020 Glucose [Mass/Vol] 378 mg/dL High 70 - 100 mg/dL [employer], [place] Comment on above: Test performed by gl ucose meter. Results may be 10%-15% lower than serum/plasma values. (CLIA ID [id number]) Interpretation and review of laboratory results Abnormal [employer] Test Performed by [facility], [address] [place] [address] [employer], [facility] Glucose [Mass/Vol] 349 mg/dL High 70 - 100 mg/dL [employer], [facility] Comment on above: Test performed by gl ucose meter. Results may be 10%-15% lower than serum/plasma values. (CLIA ID [id number]) Interpretation and review of laboratory results Abnormal [employer] Test Performed by [facility], [address] [place], [place] [address] [employer], [place] Glucose [Mass/Vol] 341 mg/dL High 70 - 100 mg/dL [employer], [place] Comment on above: Test performed by gl ucose meter. Results may be 10%-15% lower than serum/plasma values. (CLIA ID [id number]) Interpretation and review of laboratory results Abnormal [employer] Test Performed by [facility], [address], [place], [place] [address] [employer], [place] Glucose [Mass/Vol] 312 mg/dL High 70 - 100 mg/dL [employer] [place], [place] Comment on above: Test performed by gl ucose meter. Results may be 10%-15% lower than serum/plasma values. (CLIA ID [id number]) Interpretation and review of laboratory results Abnormal [place] Test Performed by [facility], [address], [place], [place] [address] [facility] Glucose [Mass/Vol] 235 mg/dL High 70 - 100 mg/dL [facility] Comment on above: Test performed by gl ucose meter. Results may be 10%-15% lower than serum/plasma values. (CLIA ID [id number]) Interpretation and review of laboratory results Abnormal [place] Test Performed by [facility], [address], [place], [place] [address] [place] XR ABDOMEN (KUB) (SINGLE AP VIEW)on 09-18-2020 [facility] Incoming Radiology Results From [facility] - 09/18/2020 10:26 AM EST Patient Name: WILL JACINTO ---Diagnostic Radiology--- Exam Date/Time 09/18/2020 09:25:00 EST Exam CR Abdomen AP Ordering Physician DO HILL LISA Accession Number [id number] CPT4 Codes 92923 () Reason For Exam ileus Report Clinical [...] HARLAN Transcribed Date and Time: 09/18/2020 10:25 [place] Patient Name: WILL ALVARADO ---Diagnostic Radiology--- Exam Date/Time 09/18/2020 09:25:00 EST Exam CR Abdomen AP Ordering Physician DO HILL LISA Accession Number [id number] CPT4 Codes 37331 () Reason For Exam ileus Report Clinical [...] HARLAN Transcribed Date and Time: 09/18/2020 10:25 [place] Abdomen Pelvis W Contrast on 09-17-2020 [facility] Results From [facility] - 09/17/2020 10:32 PM EST Patient Name: WILL JACINTO ---CT--- Exam Date/Time 09/17/2020 22:15:[address] Abdomen/Pelvis w/ IV Contrast (IV Onl Ordering Physician ART OWEN Accession Number [id number] CPT4 Codes 33586 (CT Abdomen/Pelvis w/ IV Contrast (IV Onl), Q9967 (CT ISOVUE 370MG/ML&[id number]&ML& 1) Reason For Exam abd pain/tenderness Report [...] R Transcribed Date and Time: 09/17/2020 10:31 [place] Patient Name: WILL ALVARADO ---CT--- Exam Date/Time 09/17/2020 22:15:[address] Abdomen/Pelvis w/ IV Contrast (IV Onl Ordering Physician ART OWEN Accession Number [id number] CPT4 Codes 59925 (CT Abdomen/Pelvis w/ IV Contrast (IV Onl), Q9967 (CT ISOVUE 370MG/ML&[id number]&ML& 1) Reason For Exam abd pain/tenderness Report [...] R Transcribed Date and Time: 09/17/2020 10:31 [place] Comprehensive Metabolic Pane [facility] 09-17-2020 Albumin [Mass/Vol] 4.2 g/dL 3.5 - 5 g/dL [place] ALP [Catalytic activity/Vol] 153 U/L High 38 - 126 U/L [place] ALT [Catalytic activity/Vol] 104 U/L High 0 - 34 U/L [place] Comment on above: The ALT test is perf ormed by an updated assay method. Please note that the reference intervals have been changed and are now sex specific. Anion gap [Moles/Vol] 6 mmol/L [place], [place] AST [Catalytic activity/Vol] 69 U/L High 15 - 46 U/L [place] Bilirubin Ql (U) 0.5 mg/dL 0.2 - 1.3 mg/dL [place] Calcium [Mass/Vol] 10.3 mg/dL 8.4 - 10. 4 mg/dL [place] Chloride [Moles/Vol] 101 mmol/L 98 - 10 7 mmol/L [place] CO2 [Moles/Vol] 29 mmol/L 22 - 30 mmol/L [place] Creatinine [Mass/Vol] 1.09 mg/dL 0.52 - 1.25 mg/dL [place] EGFR IF NonAfrican [place] 57.5 mL/min Abnormal >60 [place], [place] Comment on above: KDIGO guidelines pro [...] MDRD (S/P/Bld) [Vol rate/Area] 66.7 mL/min/{1.73_m2} >60 [place] Glucose [Mass/Vol] 122 mg/dL High 70 - 100 mg/dL [place] Interpretation and review of laboratory results Abnormal [place] Potassium [Moles/Vol] 5.7 mmol/L High 3.5 - 5.1 mmol/L [place] Protein [Mass/Vol] 7.9 g/dL 6.3 - 8.2 g/dL [place] Sodium [Moles/Vol] 137 mmol/L 135 - 145 mmol/L [place] Urea nitrogen [Mass/Vol] 48 mg/dL High 7 - 20 mg/dL [place] Hemogram (CBC) w/Auto Diffon 09-17-2020 Erythrocyte distribution width (RBC) [Ratio] 14.9 % High 11.5 - 14.5 % [place] Hematocrit (Bld) [Volume fraction] 33.9 % Low 35 - 47 % [place] Hemoglobin (Bld) [Mass/Vol] 11.4 g/dL Low 11.7 - 16 g/dL [place] Interpretation and review of laboratory results Abnormal [place] MCH (RBC) [Entitic mass] 29.6 pg 26 - 34 pg [place] MCHC (RBC) [Mass/Vol] 33.7 % 32 - 36 % [place], [place] MCV (RBC) [Entitic vol] 87.8 fL 79 - 98 fL [place], [place] Platelet mean volume (Bld) [Entitic vol] 7.5 fL 7.4 - 10.4 fL [place] Platelets (Bld) [#/Vol] 544 10*3/uL High 140 - 440 10*3/uL [place] RBC (Bld) [#/Vol] 3.87 10*6/uL 3.8 - 5.2 10*6/uL [place] WBC (Bld) [#/Vol] 11.0 10*3/uL High 3.6 - 10.7 10*3/uL [place] Test Performed by [facility], [address], [place], [place] [id number] [place] [address] Lipaseon 09-17-2020 Lipase [Catalytic activity/Vol] 39 U/L 23 - 300 U/L [facility] Manual Differentialon 2019 Absolute Baso # 0.0 10*3/uL 0 - 0.2 10*3/uL [facility] Absolute Eos # 0.0 10*3/uL 0 - 0.5 10*3/uL [facility] Absolute Lymph # 0.8 10*3/uL Low 1.1 - 4.5 10*3/uL [facility] Absolute Cavalier # 0.8 10*3/uL 0.2 - 1.1 10*3/uL [facility] Absolute Neut # 9.4 10*3/uL High 2.2 - 8.2 10*3/uL [facility] Bands 1 % 0 - 3 % [facility] [place] Basophils 0 % 0 - 2 % [facility] [place] Eosinophils 0 % Low 1 - 6 % [facility] [place] Interpretation and review of laboratory results Abnormal [facility] Lymphocytes 7 % Low 20 - 40 % [facility] Monocytes 7 % 2 - 10 % [facility] [place] Myelocytes 1 % Abnormal <1 [facility] Polychromasia Slight [facility] RBC morphology finding Nom (Bld) ABNORMAL [facility] Seg Neutrophils 84 % High 40 - 80 % [facility] [place] TOTAL CELLS COUNTED 100 [facility] Test Performed by [facility], [address] [facility] Otheron 09-17-2020 Test Performed by [facility], [address] [place], [place] [id number] [place] [address] [facility] POCT Glucoseon 09-17-2020 Glucose [Mass/Vol] 124 mg/dL High 70 - 100 mg/dL [facility] [employer] Comment on above: Test performed by ucose meter. Results may be 10%-15% lower than serum/plasma values. (CLIA ID [id number]) Interpretation and review of laboratory results Abnormal [facility] [employer] [place], [place] Test Performed by [facility], [address] [place], [place] [address] [facility] [place] Troponin x1on 09-17-2020 Troponin I.cardiac [Mass/Vol] ng/mL 0 - 0.034 ng/mL [place] Comment on above: . Test Performed by [facility], [address] [place] [address] [place] Urinalysison 09-17-2020 Appearance (U) Clear Clear NA [place] Comment on above: . Bilirubin Urine Negative Negative mg/dL [place] Comment on above: . Color (U) Yellow Lt. Yellow NA [place] Comment on above: . Glucose, Ur Normal Normal (<70) mg/dL [place] Comment on above: . Interpretation and review of laboratory results Abnormal [place] Ketones Ql (U) Trace Abnormal Negative mg/dL [place] Comment on above: . LEUKOCYTES, UA 25 Abnormal Negative Kat/uL [place] Comment on above: . Mucous Threads Few Negative /[LPF] [place] Comment on above: . Nitrite, Urine Negative Negative NA [place] Comment on above: . Occult Blood,Urine 1.0 mg/dL Abnormal Negative [place], [place] Comment on above: . pH (U) 5.5 [pH] [place], [place] Comment on above: . Protein (U) [Mass/Vol] 10 mg/dL Abnormal Negative [place], [place] Comment on above: . RBC (U) [#/Vol] 51-100 Abnormal 0 - 2 /[HPF] [place], [place] Comment on above: . Specific Platter, Urine 1.021 M [place], [place] Comment on above: . Squam Epithel, UA 0-2 3 - 5 /[HPF] [place], [place] Comment on above: . Urobilinogen, Urine Normal Normal (0-1) mg/dL [place], [place] Comment on above: . WBC, UA 0-2 0 - 5 /[HPF] [place], [place] Comment on above: . Test Performed by [facility], [address] [place] [address] [place], [place] Basic Metabolic Panelon 12-10 Calcium [Mass/Vol] 9.9 mg/dL Normal 8.4-10.4 [facility] Comment on above: Performed By: #### B GLU #### [facility] [address], [place] Glucose [Mass/Vol] 404 mg/dL High 70-100 [facility] Comment on above: Performed By: #### B GLU #### [facility] [address], [place] Anion gap [Moles/Vol] 13 Normal [facility] Comment on above: Performed By: #### B GLU #### [place] [address] [place], [place] CO2 [Moles/Vol] 28 mmol/L Normal 22-30 [facility] Comment on above: Performed By: #### B GLU #### [place] [address] [place], [place] Creatinine [Mass/Vol] 0.95 mg/dL Normal 0.52-1.25 [facility] Comment on above: Performed By: #### B GLU #### [facility] [address], [place] GFR/1.73 sq M predicted among blacks MDRD (S/P/Bld) [Vol rate/Area] mL/min/{1.73_m2} Normal >60 [facility] Comment on above: Performed By: #### B GLU #### [facility] [address], [place] GFR/1.73 sq M predicted among non-blacks MDRD (S/P/Bld) [Vol rate/Area] mL/min/{1.73_m2} Normal >60 [facility] Comment on above: Result Comment: Sour ce- MDRD equation with creatinine calibration to IDMS(NKDEP) eGFR not recommended for drug dose adjustment Performed By: #### B GLU #### [facility] [address], [place] Urea nitrogen [Mass/Vol] 23 mg/dL High 7-20 [facility] Comment on above: Performed By: #### B GLU #### [place] [address] [place], [place] Chloride [Moles/Vol] 94 mmol/L Low 98-107 [facility] Comment on above: Performed By: #### B GLU #### [facility] [address], [place] Potassium [Moles/Vol] 4.8 mmol/L Normal 3.5-5.1 [facility] Comment on above: Performed By: #### B GLU #### [facility] [address], [place] Sodium [Moles/Vol] 135 mmol/L Normal 135-145 [facility] Comment on above: Performed By: #### B GLU #### [facility] [address], [place] Basic Metabolic Panel w/ Ref kaye to MGon 01-02-2020 Anion gap [Moles/Vol] 13 mmol/L [place], [place] Calcium [Mass/Vol] 9.9 mg/dL 8.4 - 10. 4 mg/dL [place], [place] Chloride [Moles/Vol] 94 mmol/L Low 98 - 10 7 mmol/L [place] CO2 [Moles/Vol] 28 mmol/L 22 - 30 mmol/L [place] Creatinine [Mass/Vol] 0.95 mg/dL 0.52 - 1.25 mg/dL [place] EGFR IF NonAfrican [place] >60.0 >60 mL/min [place] Comment on above: Source- MDRD equatio n with creatinine calibration to IDMS(NKDEP) eGFR not recommended for drug dose adjustment GFR/1.73 sq M predicted among blacks MDRD (S/P/Bld) [Vol rate/Area] mL/min/{1.73_m2} >60 mL/min [place], [place] Glucose [Mass/Vol] 404 mg/dL High 70 - 100 mg/dL [place] Interpretation and review of laboratory results Abnormal [place], [place] Potassium [Moles/Vol] 4.8 mmol/L 3.5 - 5.1 mmol/L [facility] [place], [place] Sodium [Moles/Vol] 135 mmol/L 135 - 145 mmol/L [facility], [place] Urea nitrogen [Mass/Vol] 23 mg/dL High 7 - 20 mg/dL [facility], [place] Test Performed by [facility], [address] [place] [address] [facility], [place] Hemoglobin AND Hematocriton 01-02-2020 Hematocrit (Bld) [Volume fraction] 40.5 % Normal 35.0-47.0 [facility] Comment on above: Performed By: #### B GLU #### [facility] [address] [place] [address] Hemoglobin (Bld) [Mass/Vol] 13.5 g/dL Normal 11.7-16.0 [facility] Comment on above: Performed By: #### B GLU #### [facility] [address] [place] [address] Hemoglobin and Hematocrit, B loodon 01-02-2020 Hematocrit (Bld) [Volume fraction] 40.5 % 35 - 47 % [facility] MARYAM Hemoglobin (Bld) [Mass/Vol] 13.5 g/dL 11.7 - 16 g/dL [facility], [place] Test Performed by [facility], [address] [place] [address] [facility], [place] Add On Lab Teston 06-27-2019 Sodium [Moles/Vol] Accepted [facility], [place] Comment on above: Specimen available & acceptable for analysis. Test Performed by [facility], [address] [place] [address], [place] C-Reactive Proteinon 019 CRP [Mass/Vol] 45.5 mg/L High 0 - 6 mg/L [facility], [place] Comment on above: . Interpretation and review of laboratory results Abnormal [facility], [place] Test Performed by [facility], [address] [place], [address], [place] Sedimentation Rateon 019 Interpretation and review of laboratory results Abnormal [facility], [place] Sed Rate 130 mm/h High 0 - 20 mm/h [facility], [place] Test Performed by [facility], [address], [place], [place] [address] [place] Comprehensive Metabolic Pane gigi 06-26-2019 Albumin [Mass/Vol] 3.6 g/dL 3.5 - 5 g/dL [place] ALP [Catalytic activity/Vol] 165 U/L High 38 - 126 U/L [place] ALT [Catalytic activity/Vol] 37 U/L 13 - 69 U/L [place] Anion gap [Moles/Vol] 9 mmol/L [place], [place] AST [Catalytic activity/Vol] 21 U/L 15 - 46 U/L [place] Bilirubin Ql (U) 0.5 mg/dL 0.2 - 1.3 mg/dL [place] Calcium [Mass/Vol] 8.8 mg/dL 8.4 - 10. 4 mg/dL [place] Chloride [Moles/Vol] 102 mmol/L 98 - 10 7 mmol/L [place] CO2 [Moles/Vol] 26 mmol/L 22 - 30 mmol/L [place] Creatinine [Mass/Vol] 1.06 mg/dL 0.52 - 1.25 mg/dL [place] EGFR IF NonAfrican [place] 54.3 mL/min >60 [place], [place] Comment on above: Source- MDRD equatio n with creatinine calibration to IDMS(NKDEP) eGFR not recommended for drug dose adjustment GFR/1.73 sq M predicted among blacks MDRD (S/P/Bld) [Vol rate/Area] mL/min/{1.73_m2} >60 mL/min [place] Glucose [Mass/Vol] 156 mg/dL High 70 - 100 mg/dL [place] Interpretation and review of laboratory results Abnormal [place] Potassium [Moles/Vol] 4.5 mmol/L 3.5 - 5.1 mmol/L [place] Protein [Mass/Vol] 6.9 g/dL 6.3 - 8.2 g/dL [place] Sodium [Moles/Vol] 137 mmol/L 135 - 145 mmol/L [place] Urea nitrogen [Mass/Vol] 28 mg/dL High 7 - 20 mg/dL [place] Test Performed by [facility], [address], [place], [place] [address] [place] Hemogram (CBC) w/Auto Diffon 06-26-2019 Absolute Baso # 0.1 10*3/uL 0 - 0.2 10*3/uL [place] Absolute Neut # 5.3 10*3/uL 1.8 - 7 10*3/uL [place], [place] Basophils/100 WBC (Bld) 0.7 % 0 - 2 % [place], [place] Eosinophils (Bld) [#/Vol] 0.2 10*3/uL 0 - 0.5 10*3/uL [place], [place] Eosinophils/100 WBC (Bld) 2.0 % 1 - 6 % [place] Erythrocyte distribution width (RBC) [Ratio] 21.5 % High 11.5 - 14.5 % [place] Granulocytes/100 WBC (Bld) 65.6 % 40 - 80 % [place] Hematocrit (Bld) [Volume fraction] 22.8 % Low 35 - 47 % [place] Hemoglobin (Bld) [Mass/Vol] 7.3 g/dL Low 11.7 - 16 g/dL [place] Interpretation and review of laboratory results Abnormal [place] Lymphocytes (Bld) [#/Vol] 1.8 10*3/uL 1 - 4.3 10*3/uL [place] Lymphocytes/100 WBC (Bld) 21.6 % 20 - 40 % [place] MCH (RBC) [Entitic mass] 23.8 pg Low 26 - 34 pg [place], [place] MCHC (RBC) [Mass/Vol] 32.0 % 32 - 36 % [place], [place] MCV (RBC) [Entitic vol] 74.3 fL Low 79 - 98 fL [place], [place] Monocytes (Bld) [#/Vol] 0.8 10*3/uL 0 - 0.8 10*3/uL [place], [place] Monocytes/100 WBC (Bld) 10.1 % High 2 - 10 % [place], [place] Platelet mean volume (Bld) [Entitic vol] 6.7 fL Low 7.4 - 10.4 fL [place] Platelets (Bld) [#/Vol] 540 10*3/uL High 140 - 440 10*3/uL [facility], [place] RBC (Bld) [#/Vol] 3.07 10*6/uL Low 3.8 - 5.2 10*6/uL [place] WBC (Bld) [#/Vol] 8.1 10*3/uL 3.6 - 10.7 10*3/uL [place] Test Performed by [facility], [address] [place], [place] [id number] [place] [address] Lactic Acid, Plasmaon 2018 Lactate [Moles/Vol] 1.7 mmol/L 0.7 - 2 mmol/L [place] Test Performed by [facility], [address] [place], [place] [address] [place] Metabolic Panelon 06-26-2019 Sodium [Moles/Vol] Slight [facility], [place] Otheron 06-26-2019 Test Performed by [facility], [address] [place], [place] [address] [place] RBC MORPHOLOGYon 06-26-2019 Anisocytosis Ql (Bld) Slight [place] Basophilic stippling LM Ql (Bld) Slight [facility], [place] RBC morphology finding Nom (Bld) ABNORMAL [place] Sodium [Moles/Vol] Moderate [facility], [place] TYPE AND SCREENon 06-26-2019 Sodium [Moles/Vol] Positive [place], [place] Comment on above: Test Performed by [facility], [address] [place], [place] [address] Sodium [Moles/Vol] Negative [place], [place] Comment on above: Test Performed by [facility], [address] [place], [place] [address] Sodium [Moles/Vol] O [facility], [place] XR FEMUR RIGHT (MIN 2 VIEWS) on 06-26-2019 Patient Name: WILL ALVARADO ---Diagnostic Radiology--- Exam Date/Time 06/26/2019 22:31:46 EDT Exam CR Femur 2+ Views Right n Ordering Physician KELLEY ELLIOTT TAYLOR Accession Number [id number] CPT4 Codes 16412 () Reason For Exam right AKA wound drainage, swelling, erythema and warmth Report RIGHT FEMUR TWO VIEWS CLINICAL INDICATION: right AKA wound drainage, swelling, erythema and warmth TECHNIQUE: Two views of the right femur. COMPARISON: 06/14/2019 FINDINGS: Status post recent [id number] amputation. Overlying soft tissue swelling and skin boo. No obvious acute bone destruction. IMPRESSION: 1. Soft tissue swelling and skin boo overlie the operative site. No obvious bone destruction. Report Dictated on --- Final --- Dictating Physician: MD UGALDE JOHN R Signed Date and Time: 06/26/2019 10:34 pm Signed by: MD UGALDE JOHN R Transcribed Date and Time: 06/26/2019 10:35 [place] [facility] From [facility] - 06/26/2019 10:36 PM EDT Patient Name: WILL JACINTO ---Diagnostic Radiology--- Exam Date/Time 06/26/2019 22:31:46 EDT Exam CR Femur 2+ Views Right n Ordering Physician KELLEY ELLIOTT TAYLOR Accession Number [id number] CPT4 Codes 81580 () Reason For Exam right AKA wound drainage, swelling, erythema and warmth Report RIGHT FEMUR TWO VIEWS CLINICAL INDICATION: right AKA wound drainage, swelling, erythema and warmth TECHNIQUE: Two views of the right femur. COMPARISON: 06/14/2019 FINDINGS: Status post recent [id number] amputation. Overlying soft tissue swelling and skin boo. No obvious acute bone destruction. IMPRESSION: 1. Soft tissue swelling and skin boo overlie the operative site. No obvious bone destruction. Report Dictated on --- Final --- Dictating Physician: MD TRAM, JAVY Doshi Signed Date and Time: 06/26/2019 10:34 pm Signed by: MD UGALDE JOHN R Transcribed Date and Time: 06/26/2019 10:35 [place], [place] Comprehensive Metabolic Pane l w/ Reflex to MGon 06-20-2019 Albumin [Mass/Vol] 3.4 g/dL Low 3.5 - 5 g/dL [place] ALP [Catalytic activity/Vol] 124 U/L 38 - 126 U/L [place] ALT [Catalytic activity/Vol] 57 U/L 13 - 69 U/L [place] Anion gap [Moles/Vol] 7 mmol/L [place] AST [Catalytic activity/Vol] 62 U/L High 15 - 46 U/L [place] Bilirubin Ql (U) 0.4 mg/dL 0.2 - 1.3 mg/dL [place], [place] Calcium [Mass/Vol] 8.9 mg/dL 8.4 - 10. 4 mg/dL [place] Chloride [Moles/Vol] 105 mmol/L 98 - 10 7 mmol/L [place] CO2 [Moles/Vol] 26 mmol/L 22 - 30 mmol/L [place] Creatinine [Mass/Vol] 1.18 mg/dL 0.52 - 1.25 mg/dL [place] EGFR IF NonAfrican [place] 48.0 mL/min >60 [place], [place] Comment on above: Source- MDRD equatio n with creatinine calibration to IDND(NKDEP) eGFR not recommended for drug dose adjustment GFR/1.73 sq M predicted among blacks MDRD (S/P/Bld) [Vol rate/Area] 58.1 mL/min/{1.73_m2} >60 [place] Glucose [Mass/Vol] 85 mg/dL 70 - 100 mg/dL [place] Interpretation and review of laboratory results Abnormal [place] Potassium [Moles/Vol] 4.6 mmol/L 3.5 - 5.1 mmol/L [place] Protein [Mass/Vol] 6.4 g/dL 6.3 - 8.2 g/dL [place] Sodium [Moles/Vol] 139 mmol/L 135 - 145 mmol/L [place], [place] Urea nitrogen [Mass/Vol] 30 mg/dL High 7 - 20 mg/dL [place] Test Performed by [facility], [facility] [place] [address] [place], [place] Culture, Aerobic Bacteria wi th Gram Staion 06-20-2019 Aerobic Culture Many CARBAPENEMASE GENE DETECTION BY PCR VIM gene DETECTED IMP gene Not Detected NDM gene Not Detected KPC gene Not Detected OXA48 gene Not Detected The targets listed above are genes that may confer resistance to the carbapenems. Methodology: Real-time PCR ([employer]) [place], [place] Aerobic Culture Pseudomonas aeruginosa Abnormal [place], [place] Aerobic Culture Mixed enteric dorinda present. Abnormal [place] INR Coag (Bld) [Relative time] Moderate polymorphonuclear cells/lpf. Moderate gram positive cocci. Moderate gram negative bacilli. [place] Interpretation and review of laboratory results Abnormal [place] Test Performed by [facility], [place] [address] [place], [place] POCT Glucoseon 06-20-2019 Glucose [Mass/Vol] 206 mg/dL High 70 - 100 mg/dL [place], [place] Comment on above: Test performed by ucose meter. Results may be 10%-15% lower than serum/plasma values. (CLIA ID [id number]) Interpretation and review of laboratory results Abnormal [place] Test Performed by [facility], [address] [place] [address] [place], [place] Glucose [Mass/Vol] 200 mg/dL High 70 - 100 mg/dL [place], [place] Comment on above: Test performed by gl ucose meter. Results may be 10%-15% lower than serum/plasma values. (CLIA ID [id number]) Interpretation and review of laboratory results Abnormal [place], [place] Test Performed by [facility], [address] [place] [address] [place], [place] Glucose [Mass/Vol] 189 mg/dL High 70 - 100 mg/dL [place], [place] Comment on above: Test performed by gl ucose meter. Results may be 10%-15% lower than serum/plasma values. (CLIA ID [id number]) Interpretation and review of laboratory results Abnormal [place] Test Performed by [facility], [address] [place] [address] [place], [place] Surgical Pathologyon 019 Sodium [Moles/Vol] SEE BELOW [place], [place] [phone] [facility] PATHOLOGY AND LABORATORY MEDICINE [address] [place] [address] FINAL SURGICAL PATHOLOGY REPORT NAME: WILL JACINTO : 1965 53 Y F [facility] NO.: [id number] LOCATION: I 6125 01 PROCEDURE 06/16/2019 DATE: SURGEON: SERGIO PISANO M.D. RECEIVED 06/17/2019 DATE: ATTENDING: JAYESH JORDAN MD REPORT DATE: 06/20/2019 COPIES TO: DIAGNOSIS: LEG, RIGHT ABOVE THE KNEE AMPUTATION - SKIN WITH ULCERATION AND NECROTIZING ACUTE INFLAMMATION OF SOFT TISSUE OF THE FOOT. 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 MILD CALCIFIC ATHEROSCLEROSIS. NE/NE Signature> ALLEN JERRY M.D. CLINICAL INFORMATION: Not [...] by the clinical laboratories of [facility]. They have not been cleared by [...] negativity on decalcified specimens. Professional Performing Location: [place] [address]. DEPARTMENT OF PATHOLOGY AND LABORATORY MEDICINE [place], [place] [address] [place], [place] Anaerobic Cultureon 06-19-20 19 Anaerobic Culture Many [place], [place] Anaerobic Culture Positive Abnormal [place] Interpretation and review of laboratory results Abnormal [place] Test Performed by [facility], [address] [place] [address], [place] [address] [place] Comprehensive Metabolic Pane l w/ Reflex to MGon 06-19-2019 Albumin [Mass/Vol] 3.6 g/dL 3.5 - 5 g/dL [place] ALP [Catalytic activity/Vol] 126 U/L 38 - 126 U/L [place] ALT [Catalytic activity/Vol] 54 U/L 13 - 69 U/L [place] Anion gap [Moles/Vol] 10 mmol/L [place], [place] AST [Catalytic activity/Vol] 71 U/L High 15 - 46 U/L [place] Bilirubin Ql (U) 0.6 mg/dL 0.2 - 1.3 mg/dL [place] Calcium [Mass/Vol] 9.0 mg/dL 8.4 - 10. 4 mg/dL [place] Chloride [Moles/Vol] 101 mmol/L 98 - 10 7 mmol/L [place] CO2 [Moles/Vol] 24 mmol/L 22 - 30 mmol/L [place] Creatinine [Mass/Vol] 1.67 mg/dL High 0.52 - 1.25 mg/dL [place] EGFR IF NonAfrican [place] 32.1 mL/min >60 [place] Comment on above: Source- MDRD equatio n with creatinine calibration to IDMS(NKDEP) eGFR not recommended for drug dose adjustment GFR/1.73 sq M predicted among blacks MDRD (S/P/Bld) [Vol rate/Area] 38.9 mL/min/{1.73_m2} >60 [place] Glucose [Mass/Vol] 180 mg/dL High 70 - 100 mg/dL [place] Interpretation and review of laboratory results Abnormal [place] Potassium [Moles/Vol] 5.7 mmol/L High 3.5 - 5.1 mmol/L [place] Protein [Mass/Vol] 6.8 g/dL 6.3 - 8.2 g/dL [place] Sodium [Moles/Vol] 135 mmol/L 135 - 145 mmol/L [place] Urea nitrogen [Mass/Vol] 33 mg/dL High 7 - 20 mg/dL [facility] MARYAM Test Performed by [facility], [place] [address] [place], [place] Otheron 06-19-2019 Blood Culture, Routine No growth at 5 days. [facility] Test Performed by [facility], [address] [place] [id number] Specimen Source Comment:Blood [facility] POCT Glucoseon 06-19-2019 Glucose [Mass/Vol] 135 mg/dL High 70 - 100 mg/dL [place] Comment on above: Test performed by gl ucose meter. Results may be 10%-15% lower than serum/plasma values. (CLIA ID [id number]) Interpretation and review of laboratory results Abnormal [facility], [place]ARYAM Test Performed by [facility], [place] [address] [place] Glucose [Mass/Vol] 219 mg/dL High 70 - 100 mg/dL [place] Comment on above: Test performed by gl ucose meter. Results may be 10%-15% lower than serum/plasma values. (CLIA ID [id number]) Interpretation and review of laboratory results Abnormal [facility], [place]ARYAM Test Performed by [facility], [facility] [place] [address] [place] Glucose [Mass/Vol] 222 mg/dL High 70 - 100 mg/dL [place] Comment on above: Test performed by gl ucose meter. Results may be 10%-15% lower than serum/plasma values. (CLIA ID [id number]) Interpretation and review of laboratory results Abnormal [facility], [place]ARYAM Test Performed by [facility], [place] [address] [place] Procalcitoninon 06-19-2019 Interpretation and review of laboratory results Abnormal [place] Procalcitonin 0.32 ng/mL Abnormal <0.10 [place] Sodium [Moles/Vol] See Below [place], [place] Comment on above: PCT <0.50 = Low risk of severe sepsis and/or septic shock. PCT >2.00 = High risk of severe sepsis and/or septic shock. Test Performed by [facility], [address] [place] [address] [place] Comprehensive Metabolic Pane l w/ Reflex to MGon 06-18-2019 Albumin [Mass/Vol] 3.3 g/dL Low 3.5 - 5 g/dL [place] ALP [Catalytic activity/Vol] 94 U/L 38 - 126 U/L [place] ALT [Catalytic activity/Vol] 44 U/L 13 - 69 U/L [place] Anion gap [Moles/Vol] 10 mmol/L [place], [place] AST [Catalytic activity/Vol] 48 U/L High 15 - 46 U/L [place] Bilirubin Ql (U) 0.5 mg/dL 0.2 - 1.3 mg/dL [place] Calcium [Mass/Vol] 8.7 mg/dL 8.4 - 10. 4 mg/dL [place] Chloride [Moles/Vol] 100 mmol/L 98 - 10 7 mmol/L [place] CO2 [Moles/Vol] 26 mmol/L 22 - 30 mmol/L [place] Creatinine [Mass/Vol] 1.53 mg/dL High 0.52 - 1.25 mg/dL [place] EGFR IF NonAfrican [place] 35.6 mL/min >60 [place] Comment on above: Source- MDRD equatio n with creatinine calibration to IDMS(NKDEP) eGFR not recommended for drug dose adjustment GFR/1.73 sq M predicted among blacks MDRD (S/P/Bld) [Vol rate/Area] 43.1 mL/min/{1.73_m2} >60 [place] Glucose [Mass/Vol] 108 mg/dL High 70 - 100 mg/dL [place] Interpretation and review of laboratory results Abnormal [facility] Potassium [Moles/Vol] 4.2 mmol/L 3.5 - 5.1 mmol/L [place] Protein [Mass/Vol] 6.1 g/dL Low 6.3 - 8.2 g/dL [place] Sodium [Moles/Vol] 135 mmol/L 135 - 145 mmol/L [place] Urea nitrogen [Mass/Vol] 29 mg/dL High 7 - 20 mg/dL [place] Test Performed by [facility], [place] [address] [place] POCT Glucoseon 06-18-2019 Glucose [Mass/Vol] 189 mg/dL High 70 - 100 mg/dL [place] Comment on above: Test performed by gl ucose meter. Results may be 10%-15% lower than serum/plasma values. (CLIA ID [id number]) Interpretation and review of laboratory results [facility]normal [facility] Test Per[facility], [place] [address] [place] Glucose [Mass/Vol] 207 mg/dL High 70 - 100 mg/dL [place] Comment on above: Test performed by gl ucose meter. Results may be 10%-15% lower than serum/plasma values. (CLIA ID [id number]) Interpretation and review of laboratory results Abnormal [facility] Test Performed by [facility], [facility] [place] [address] [place] Glucose [Mass/Vol] 206 mg/dL High 70 - 100 mg/dL [place] Comment on above: Test performed by gl ucose meter. Results may be 10%-15% lower than serum/plasma values. (CLIA ID [id number]) Interpretation and review of laboratory results Abnormal [facility], [place]ARYAM Test Performed by [facility], [address] [place], [place] [address] [place] [address] Glucose [Mass/Vol] 156 mg/dL High 70 - 100 mg/dL [place] Comment on above: Test performed by gl ucose meter. Results may be 10%-15% lower than serum/plasma values. (CLIA ID [id number]) Interpretation and review of laboratory results Abnormal [place] Test Performed by [facility], [facility] [place], [place] [id number] [place] [address] CBCon 06-17-2019 Erythrocyte distribution width (RBC) [Ratio] 22.4 % High 11.5 - 14.5 % [place] Hematocrit (Bld) [Volume fraction] 24.8 % Low 35 - 47 % [place] Hemoglobin (Bld) [Mass/Vol] 7.6 g/dL Low 11.7 - 16 g/dL [place] Interpretation and review of laboratory results Abnormal [place] MCH (RBC) [Entitic mass] 23.3 pg Low 26 - 34 pg [place] MCHC (RBC) [Mass/Vol] 30.7 % Low 32 - 36 % [place] MCV (RBC) [Entitic vol] 76.1 fL Low 79 - 98 fL [place] Platelet mean volume (Bld) [Entitic vol] 7.8 fL 7.4 - 10.4 fL [place] Platelets (Bld) [#/Vol] 403 10*3/uL 140 - 440 10*3/uL [place] RBC (Bld) [#/Vol] 3.26 10*6/uL Low 3.8 - 5.2 10*6/uL [place] WBC (Bld) [#/Vol] 13.3 10*3/uL High 3.6 - 10.7 10*3/uL [place] Test Performed by [facility], [facility] [address] Comprehensive Metabolic Pane l w/ Reflex to MGon 06-17-2019 Albumin [Mass/Vol] 3.7 g/dL 3.5 - 5 g/dL [place] ALP [Catalytic activity/Vol] 121 U/L 38 - 126 U/L [place] ALT [Catalytic activity/Vol] 30 U/L 13 - 69 U/L [place] Anion gap [Moles/Vol] 14 mmol/L [place] AST [Catalytic activity/Vol] 34 U/L 15 - 46 U/L [place] Bilirubin Ql (U) 0.7 mg/dL 0.2 - 1.3 mg/dL [place] Calcium [Mass/Vol] 8.5 mg/dL 8.4 - 10. 4 mg/dL [place] Chloride [Moles/Vol] 98 mmol/L 98 - 10 7 mmol/L [place] CO2 [Moles/Vol] 21 mmol/L Low 22 - 30 mmol/L [place] Creatinine [Mass/Vol] 0.94 mg/dL 0.52 - 1.25 mg/dL [place] EGFR IF NonAfrican [place] >60.0 >60 mL/min [place], [place] Comment on above: Source- MDRD equatio n with creatinine calibration to IDMS(NKDEP) eGFR not recommended for drug dose adjustment GFR/1.73 sq M predicted among blacks MDRD (S/P/Bld) [Vol rate/Area] mL/min/{1.73_m2} >60 mL/min [place] Glucose [Mass/Vol] 399 mg/dL High 70 - 100 mg/dL [place], [place] Comment on above: repeated Interpretation and review of laboratory results Abnormal [place] Potassium [Moles/Vol] 5.3 mmol/L High 3.5 - 5.1 mmol/L [place] Protein [Mass/Vol] 6.6 g/dL 6.3 - 8.2 g/dL [place] Sodium [Moles/Vol] 134 mmol/L Low 135 - 145 mmol/L [place] Urea nitrogen [Mass/Vol] 25 mg/dL High 7 - 20 mg/dL [place] Test Performed by [facility] [address] [address] [place], [place] Hematologyon 06-17-2019 ABO and Rh group Nom (Bld) 5100 [place], [place] Metabolic Panelon 06-17-2019 Sodium [Moles/Vol] [id number] [place] Sodium [Moles/Vol] released [place] POCT Glucoseon 06-17-2019 Glucose [Mass/Vol] 305 mg/dL High 70 - 100 mg/dL [place], [place] Comment on above: Test performed by gl ucose meter. Results may be 10%-15% lower than serum/plasma values. (CLIA ID [id number]) Interpretation and review of laboratory results Abnormal [place] Test Performed by [facility], [address] [place] [id number] [place] [address] Glucose [Mass/Vol] 373 mg/dL High 70 - 100 mg/dL [place], [place] Comment on above: Test performed by gl ucose meter. Results may be 10%-15% lower than serum/plasma values. (CLIA ID [id number]) Interpretation and review of laboratory results Abnormal [place] Test Performed by [id number] [place] [address] Glucose [Mass/Vol] 477 mg/dL High 70 - 100 mg/dL [place], [place] Comment on above: Test performed by gl ucose meter. Results may be 10%-15% lower than serum/plasma values. (CLIA ID [id number]) Interpretation and review of laboratory results Abnormal [place] Test Performed by [facility], [place] [address] [place] PREPARE RBC (CROSSMATCH)on 0 06-17-2019 Blood product unit ID (Dose) [#] [id number] [place] Blood product unit ID (Dose) [#] [id number] [place] Sodium [Moles/Vol] [id number] mmol/L [place] Sodium [Moles/Vol] [id number] mmol/L [place], [place] Potassiumon 06-17-2019 Interpretation and review of laboratory results Abnormal [place] Potassium [Moles/Vol] 5.4 mmol/L High 3.5 - 5.1 mmol/L [place], [place] Test Performed by [facility], [address] [place] [address] [place] Procalcitoninon 06-17-2019 Interpretation and review of laboratory results Abnormal [place] Procalcitonin 0.11 ng/mL Abnormal <0.10 [place] Sodium [Moles/Vol] See Below [place], [place] Comment on above: PCT <0.50 = Low risk of severe sepsis and/or septic shock. PCT >2.00 = High risk of severe sepsis and/or septic shock. Test Performed by [facility], [address] [place] [address] [place], [place] Albuminon 06-16-2019 Albumin [Mass/Vol] 3.9 g/dL 3.5 - 5 g/dL [place] Test Performed by [facility], [facility] [address] [place] CBCon 06-16-2019 Erythrocyte distribution width (RBC) [Ratio] 22.9 % High 11.5 - 14.5 % [place] Hematocrit (Bld) [Volume fraction] 28.2 % Low 35 - 47 % [place] Hemoglobin (Bld) [Mass/Vol] 8.8 g/dL Low 11.7 - 16 g/dL [place] Interpretation and review of laboratory results Abnormal [place] MCH (RBC) [Entitic mass] 23.8 pg Low 26 - 34 pg [place] MCHC (RBC) [Mass/Vol] 31.2 % Low 32 - 36 % [place], [place] MCV (RBC) [Entitic vol] 76.0 fL Low 79 - 98 fL [place], [place] Platelet mean volume (Bld) [Entitic vol] 7.7 fL 7.4 - 10.4 fL [place], [place] Platelets (Bld) [#/Vol] 372 10*3/uL 140 - 440 10*3/uL [place] RBC (Bld) [#/Vol] 3.71 10*6/uL Low 3.8 - 5.2 10*6/uL [place] WBC (Bld) [#/Vol] 6.7 10*3/uL 3.6 - 10.7 10*3/uL [place] Test Performed by [facility], [address] [place] [address] [place] Erythrocyte distribution width (RBC) [Ratio] disregard Critically abnormal 11.5 - 14.5 % [place], [place] Comment on above: CORRECTED RESULT...P revious above value was 23.2, verified on 06/16/19 at 04:45 by LRB . Hematocrit (Bld) [Volume fraction] disregard Critically abnormal 35 - 47 % [place] Comment on above: CORRECTED RESULT...P revious above value was 30.2, verified on 06/16/19 at 04:45 by LRB . Hemoglobin (Bld) [Mass/Vol] disregard Critically abnormal 11.7 - 16 g/dL [place] Comment on above: CORRECTED RESULT...P revious above value was 9.3, verified on 06/16/19 at 04:45 by LRB . Interpretation and review of laboratory results Abnormal [place] MCH (RBC) [Entitic mass] disregard Critically abnormal 26 - 34 pg [place] Comment on above: CORRECTED RESULT...P revious above value was 23.4, verified on 06/16/19 at 04:45 by LRB . MCHC (RBC) [Mass/Vol] disregard Critically abnormal 32 - 36 % [place] Comment on above: CORRECTED RESULT...P revious above value was 30.8, verified on 06/16/19 at 04:45 by LRB . MCV (RBC) [Entitic vol] disregard Critical ly abnormal 79 - 98 fL [place], [place] Comment on above: CORRECTED RESULT...P revious above value was 75.8, verified on 06/16/19 at 04:45 by LRB . RBC (Bld) [#/Vol] disregard Critically abnormal 3.8 - 5.2 10*6/uL [place], [place] Comment on above: CORRECTED RESULT...P revious above value was 3.98, verified on 06/16/19 at 04:45 by LRB . WBC (Bld) [#/Vol] disregard Critically abnormal 3.6 - 10.7 10*3/uL [place] Comment on above: CORRECTED RESULT...P revious above value was 3.7, verified on 06/16/19 at 04:45 by LRB . Test Performed by [facility], [address] [place] [address] [place] Comprehensive Metabolic Pane l w/ Reflex to MGon 06-16-2019 Albumin [Mass/Vol] 3.5 g/dL 3.5 - 5 g/dL [place] ALP [Catalytic activity/Vol] 167 U/L High 38 - 126 U/L [place] ALT [Catalytic activity/Vol] 28 U/L 13 - 69 U/L [place] Anion gap [Moles/Vol] 11 mmol/L [place], [place] AST [Catalytic activity/Vol] 29 U/L 15 - 46 U/L [place] Bilirubin Ql (U) 0.7 mg/dL 0.2 - 1.3 mg/dL [place] Calcium [Mass/Vol] 8.6 mg/dL 8.4 - 10. 4 mg/dL [place] Chloride [Moles/Vol] 98 mmol/L 98 - 10 7 mmol/L [place] CO2 [Moles/Vol] 23 mmol/L 22 - 30 mmol/L [place] Creatinine [Mass/Vol] 0.87 mg/dL 0.52 - 1.25 mg/dL [place] EGFR IF NonAfrican [place] >60.0 >60 mL/min [place] Comment on above: Source- MDRD equatio n with creatinine calibration to IDMS(NKDEP) eGFR not recommended for drug dose adjustment GFR/1.73 sq M predicted among blacks MDRD (S/P/Bld) [Vol rate/Area] mL/min/{1.73_m2} >60 mL/min [place] Glucose [Mass/Vol] 385 mg/dL High 70 - 100 mg/dL [place] Interpretation and review of laboratory results Abnormal [place] Potassium [Moles/Vol] 4.9 mmol/L 3.5 - 5.1 mmol/L [place] Protein [Mass/Vol] 6.5 g/dL 6.3 - 8.2 g/dL [place] Sodium [Moles/Vol] 131 mmol/L Low 135 - 145 mmol/L [place] Urea nitrogen [Mass/Vol] 31 mg/dL High 7 - 20 mg/dL [place] Test Performed by [facility], [facility] [place], [place] [id number] [place] [address] Hemoglobin A1Con 06-16-2019 eAG 240 mg/dL [place], [place] HbA1c (Bld) [Mass fraction] 10.0 % High 4 - 5.7 % [place], [place] Comment on above: --HgbA1C levels may not be accurate in patients who have renal disease, received recent blood transfusions, are anemic, or who have dyshemoglobinemia. Interpretation and review of laboratory results Abnormal [place] Test Performed by [facility], [facility] [address] [place], [place] POCT Glucoseon 06-16-2019 Glucose [Mass/Vol] 386 mg/dL High 70 - 100 mg/dL [place] Comment on above: Test performed by gl ucose meter. Results may be 10%-15% lower than serum/plasma values. (CLIA ID [id number]) Interpretation and review of laboratory results Abnormal [place] Test Performed by [facility], [facility] [place] [address] [place] Glucose [Mass/Vol] 287 mg/dL High 70 - 100 mg/dL [place] Comment on above: Test performed by gl ucose meter. Results may be 10%-15% lower than serum/plasma values. (CLIA ID [id number]) Interpretation and review of laboratory results Abnormal [facility], [place] Test Performed by [facility], [facility] [place] [address] [facility]- [place], [place] Glucose [Mass/Vol] 285 mg/dL High 70 - 100 mg/dL [facility]- [place], [place] Comment on above: Test performed by gl ucose meter. Results may be 10%-15% lower than serum/plasma values. (CLIA ID [id number]) Interpretation and review of laboratory results Abnormal [facility]- [place], [place] Test Performed by [facility], [place] [address] [facility], [place] Glucose [Mass/Vol] 431 mg/dL High 70 - 100 mg/dL [facility] Comment on above: Test performed by gl ucose meter. Results may be 10%-15% lower than serum/plasma values. (CLIA ID [id number]) Interpretation and review of laboratory results Abnormal [facility], [place] Test Performed by [facility], [place] [address] [facility], [place] Glucose [Mass/Vol] 431 mg/dL High 70 - 100 mg/dL [facility] Comment on above: Test performed by gl ucose meter. Results may be 10%-15% lower than serum/plasma values. (CLIA ID [id number]) Interpretation and review of laboratory results Abnormal [employer] [place], [place] Test Performed by [facility], [place] [address] [facility], [place] Vancomycin, Troughon 019 Vancomycin Tr 17.1 ug/mL 15 - 20 ug/mL [facility] Comment on above: . Test Performed by [facility], [facility] [place] [address] [facility], [place] CBCon 06-15-2019 Erythrocyte distribution width (RBC) [Ratio] 22.9 % High 11.5 - 14.5 % [facility] [place] Hematocrit (Bld) [Volume fraction] 27.2 % Low 35 - 47 % [place] Hemoglobin (Bld) [Mass/Vol] 8.8 g/dL Low 11.7 - 16 g/dL [place] Interpretation and review of laboratory results Abnormal [place] MCH (RBC) [Entitic mass] 24.1 pg Low 26 - 34 pg [place] MCHC (RBC) [Mass/Vol] 32.2 % 32 - 36 % [place] MCV (RBC) [Entitic vol] 74.8 fL Low 79 - 98 fL [place], [place] Platelet mean volume (Bld) [Entitic vol] 7.8 fL 7.4 - 10.4 fL [place], [place] Platelets (Bld) [#/Vol] 353 10*3/uL 140 - 440 10*3/uL [place] RBC (Bld) [#/Vol] 3.64 10*6/uL Low 3.8 - 5.2 10*6/uL [place] WBC (Bld) [#/Vol] 6.6 10*3/uL 3.6 - 10.7 10*3/uL [place] Test Performed by [facility], [address] [place] [id number] [place] [address] Comprehensive Metabolic Pane l w/ Reflex to MGon 06-15-2019 Albumin [Mass/Vol] 3.4 g/dL Low 3.5 - 5 g/dL [place] ALP [Catalytic activity/Vol] 168 U/L High 38 - 126 U/L [place] ALT [Catalytic activity/Vol] 27 U/L 13 - 69 U/L [place] Anion gap [Moles/Vol] 10 mmol/L [place], [place] AST [Catalytic activity/Vol] 30 U/L 15 - 46 U/L [place] Bilirubin Ql (U) 0.5 mg/dL 0.2 - 1.3 mg/dL [place] Calcium [Mass/Vol] 8.7 mg/dL 8.4 - 10. 4 mg/dL [place] Chloride [Moles/Vol] 100 mmol/L 98 - 10 7 mmol/L [place] CO2 [Moles/Vol] 25 mmol/L 22 - 30 mmol/L [place] Creatinine [Mass/Vol] 0.86 mg/dL 0.52 - 1.25 mg/dL [place] EGFR IF NonAfrican [place] >60.0 >60 mL/min [place] Comment on above: Source- MDRD equatio n with creatinine calibration to IDMS(NKDEP) eGFR not recommended for drug dose adjustment GFR/1.73 sq M predicted among blacks MDRD (S/P/Bld) [Vol rate/Area] mL/min/{1.73_m2} >60 mL/min [place] Glucose [Mass/Vol] 281 mg/dL High 70 - 100 mg/dL [place] Interpretation and review of laboratory results Abnormal [place] Potassium [Moles/Vol] 4.7 mmol/L 3.5 - 5.1 mmol/L [place] Protein [Mass/Vol] 6.4 g/dL 6.3 - 8.2 g/dL [place] Sodium [Moles/Vol] 135 mmol/L 135 - 145 mmol/L [place] Urea nitrogen [Mass/Vol] 31 mg/dL High 7 - 20 mg/dL [place] Test Performed by [facility], [address] [place] [address] [place] EKG 12 Leadon 06-15-2019 Robert, [facility] Incoming Cardiology Results From [facility] - 06/15/2019 5:33 PM EDT [facility] Test Date: 2019-06-14 Pat Name: Will Jacinto Department: 1A6 Room: 6125 Gender: F Publications Manager: DILLON : 1965 Requested By: Order Number: [id number] Reading MD: Ezio Schmitt Measurements Intervals Lynn Rate: 97 P: 50 NE: 169 QRS: -27 QRSD: 113 T: 50 QT: 363 QTc: 461 Interpretive Statements Sinus rhythm Low voltage, precordial leads Left ventricular hypertrophy ST elev, consider awmi Electronically Signed On 06-15-2019 17:32:44 EDT by Ezio Schmitt via680 MARYAM [facility] Test Date: 2019-06-14 Pat Name: Will Jacinto Department: 1AH6 Room: [facility] Gender: F Publications Manager: DILLON : 1965 Requested By: Order Number: [id number] Reading MD: Ezio Schmitt Measurements Intervals Lynn Rate: 97 P: 50 NE: 169 QRS: -27 QRSD: 113 T: 50 QT: 363 QTc: 461 Interpretive Statements Sinus rhythm Low voltage, precordial leads Left ventricular hypertrophy ST elev, consider awmi Electronically Signed On 06-15-2019 17:32:44 EDT by Ezio Schmitt via680 MARYAM POCT Glucoseon 06-15-2019 Glucose [Mass/Vol] 402 mg/dL High 70 - 100 mg/dL [facility] [place] Comment on above: Test performed by gl ucose meter. Results may be 10%-15% lower than serum/plasma values. (CLIA ID [id number]) Interpretation and review of laboratory results Abnormal [facility] Test Performed by [facility], [address] [facility] [place] [address] [employer] [place] Glucose [Mass/Vol] 315 mg/dL High 70 - 100 mg/dL [facility] [place] Comment on above: Test performed by gl ucose meter. Results may be 10%-15% lower than serum/plasma values. (CLIA ID [id number]) Interpretation and review of laboratory results Abnormal [facility] Test Performed by [facility], [address] [place] [address] [facility] [place] Glucose [Mass/Vol] 290 mg/dL High 70 - 100 mg/dL [facility] [place] Comment on above: Test performed by gl ucose meter. Results may be 10%-15% lower than serum/plasma values. (CLIA ID [id number]) Interpretation and review of laboratory results Abnormal [facility] Test Performed by [facility], [address] [place] [address] [employer] [place], [employer] Glucose [Mass/Vol] 414 mg/dL High 70 - 100 mg/dL [place], [place] Comment on above: Test performed by gl ucose meter. Results may be 10%-15% lower than serum/plasma values. (CLIA ID [id number]) Interpretation and review of laboratory results Abnormal [facility], [place] Test Performed by [facility], [facility] [place] [address] [place] Glucose [Mass/Vol] 366 mg/dL High 70 - 100 mg/dL [place] Comment on above: Test performed by gl ucose meter. Results may be 10%-15% lower than serum/plasma values. (CLIA ID [id number]) Interpretation and review of laboratory results Abnormal [facility], [place] Test Performed by [facility], [facility] [place] [address] [place] Glucose [Mass/Vol] 357 mg/dL High 70 - 100 mg/dL [place] Comment on above: Test performed by gl ucose meter. Results may be 10%-15% lower than serum/plasma values. (CLIA ID [id number]) Interpretation and review of laboratory results Abnormal [facility], [place] Test Performed by [facility], [place] [address] [place] Add On Lab Teston 06-14-2019 Sodium [Moles/Vol] Accepted [place], [place] Comment on above: Specimen available & acceptable for analysis. Test Performed by [facility], [facility] [place] [address] [place] Basic Metabolic Panelon Anion gap [Moles/Vol] 13 mmol/L [place], [place] Calcium [Mass/Vol] 9.6 mg/dL 8.4 - 10. 4 mg/dL [place] Chloride [Moles/Vol] 96 mmol/L Low 98 - 10 7 mmol/L [place] CO2 [Moles/Vol] 27 mmol/L 22 - 30 mmol/L [place] Creatinine [Mass/Vol] 0.89 mg/dL 0.52 - 1.25 mg/dL [place] EGFR IF NonAfrican [place] >60.0 >60 mL/min [place] Comment on above: Source- MDRD equatio n with creatinine calibration to IDMS(NKDEP) eGFR not recommended for drug dose adjustment GFR/1.73 sq M predicted among blacks MDRD (S/P/Bld) [Vol rate/Area] mL/min/{1.73_m2} >60 mL/min [place] Glucose [Mass/Vol] 325 mg/dL High 70 - 100 mg/dL [place] Interpretation and review of laboratory results Abnormal [place] Potassium [Moles/Vol] 4.8 mmol/L 3.5 - 5.1 mmol/L [place] Sodium [Moles/Vol] 135 mmol/L 135 - 145 mmol/L [place] Urea nitrogen [Mass/Vol] 30 mg/dL High 7 - 20 mg/dL [place] Beta-Hydroxybutyrateon 06-14 Beta-Hydroxybutyrate 1.24 mg/dL 0.2 - 2 .81 mg/dL [place], [place] C-Reactive Proteinon 019 CRP [Mass/Vol] 30.7 mg/L High 0 - 6 mg/L [place], [place] Comment on above: . Interpretation and review of laboratory results Abnormal [place] Test Performed by [facility], [address] [place] [id number] [place] [address] Hemogram (CBC) w/Auto Diffon 06-14-2019 Absolute Baso # 0.0 10*3/uL 0 - 0.2 10*3/uL [place] Absolute Neut # 4.8 10*3/uL 1.8 - 7 10*3/uL [place] Basophils/100 WBC (Bld) 0.5 % 0 - 2 % [place] Eosinophils (Bld) [#/Vol] 0.1 10*3/uL 0 - 0.5 10*3/uL [place] Eosinophils/100 WBC (Bld) 1.1 % 1 - 6 % [place] Erythrocyte distribution width (RBC) [Ratio] 22.6 % High 11.5 - 14.5 % [place], [place] Granulocytes/100 WBC (Bld) 69.0 % 40 - 80 % [place] Hematocrit (Bld) [Volume fraction] 30.2 % Low 35 - 47 % [place] Hemoglobin (Bld) [Mass/Vol] 9.6 g/dL Low 11.7 - 16 g/dL [place], [place] Interpretation and review of laboratory results Abnormal [place] Lymphocytes (Bld) [#/Vol] 1.5 10*3/uL 1 - 4.3 10*3/uL [place], [place] Lymphocytes/100 WBC (Bld) 20.9 % 20 - 40 % [place] MCH (RBC) [Entitic mass] 23.8 pg Low 26 - 34 pg [place] MCHC (RBC) [Mass/Vol] 31.7 % Low 32 - 36 % [place] MCV (RBC) [Entitic vol] 75.1 fL Low 79 - 98 fL [place], [place] Monocytes (Bld) [#/Vol] 0.6 10*3/uL 0 - 0.8 10*3/uL [place], [place] Monocytes/100 WBC (Bld) 8.5 % 2 - 10 % [place], [place] Platelet mean volume (Bld) [Entitic vol] 7.8 fL 7.4 - 10.4 fL [place] Platelets (Bld) [#/Vol] 396 10*3/uL 140 - 440 10*3/uL [place] RBC (Bld) [#/Vol] 4.03 10*6/uL 3.8 - 5.2 10*6/uL [place] WBC (Bld) [#/Vol] 7.0 10*3/uL 3.6 - 10.7 10*3/uL [place] Test Performed by [facility], [address] [place] [address] [place] Lactic Acid, Plasmaon 2018 Interpretation and review of laboratory results Abnormal [place], [place] Lactate [Moles/Vol] 3.7 mmol/L Critically high 0.7 - 2 mmol/L [place], [place] Comment on above: Repeated Test Performed by [facility], [facility] [address] [place], [place] [id number] [place] [address] Otheron 06-14-2019 Test Performed [address] [facility], [facility] [address] [place], [place] [id number] [place] [address] POCT Glucoseon 06-14-2019 Glucose [Mass/Vol] 325 mg/dL High 70 - 100 mg/dL [place], [place] Comment on above: Test performed by ucose meter. Results may be 10%-15% lower than serum/plasma values. (CLIA ID [id number]) Interpretation and review of laboratory results Abnormal [place], [place] Test Performed by [facility], [facility] [address] [place], [place] [id number] [place] [address] Procalcitoninon 06-14-2019 Procalcitonin <0.10 <0.10 ng/mL [place] Sodium [Moles/Vol] See Below [place], [place] Comment on above: PCT <0.50 = Low risk of severe sepsis and/or septic shock. PCT >2.00 = High risk of severe sepsis and/or septic shock. Test Performed by [facility], [facility] [place], [place] [id number] [place] [address] Protime-INRon 06-14-2019 INR Coag (PPP) [Relative time] 1.0 {INR} [place], [place] Comment on above: Recommended Anticoag ulant [...] [Time] 10.9 s 9 - 12 s [place], [place] Comment on above: . Test Performed by [facility], [address] [place] [address] [facility], [place] Sedimentation Rateon 019 Interpretation and review of laboratory results Abnormal [facility], MARYAM Sed Rate 65 mm/h High 0 - 20 mm/h [facility] [place], [place] Test Performed by [facility], [address] [place] [address] [facility], [place] TYPE AND SCREENon 06-14-2019 Sodium [Moles/Vol] O [facility] [place], [place]ARY[place] Sodium [Moles/Vol] Positive [facility] [place], [place] Comment on above: Test Performed by [facility], [address] [place] [address] Sodium [Moles/Vol] Negative [facility] [place], [place]ARY[place] Comment on above: Test Performed by [facility], [address] [place] [address] Test Performed by [facility], [address] [place] [address] [facility], [place]ARYAM XR CHEST 1 VWon 06-14-2019 Robert, [facility] Incoming Radiology Results From [facility] - 06/14/2019 8:45 PM EDT Patient Name: WILL JACINTO ---Diagnostic Radiology--- Exam Date/Time 06/14/2019 20:33:50 EDT Exam CR Chest 1 View Frontal Ordering Physician [id number] GAUTAM Accession Number [id number] CPT4 Codes 02980 () Reason For Exam preop Report Portable [...] RISA Transcribed Date and Time: 06/14/2019 8:44 [place], [place] Patient Name: IWLL ALVARADO ---Diagnostic Radiology--- Exam Date/Time 06/14/2019 20:33:50 EDT Exam CR Chest 1 View Frontal Ordering Physician [id number] MCDOWELL Accession Number [id number] CPT4 Codes 06921 () Reason For Exam preop Report Portable [...] RISA Transcribed Date and Time: 06/14/2019 8:44 [place] XR FEMUR RIGHT (MIN 2 VIEWS) on 06-14-2019 Robert, [facility] Incoming Radiology Results From [facility] - 06/14/2019 11:58 PM EDT Patient Name: WILL JACINTO ---Diagnostic Radiology--- Exam Date/Time 06/14/2019 23:38:07 EDT Exam CR Femur 2+ Views Right n Ordering Physician SCOOTER MCCOLLUM Accession Number [id number] CPT4 Codes 03134 () Reason For Exam pain Report CLINICAL [...] JEFFREY Transcribed Date and Time: 06/14/2019 11:55 [place] Patient Name: WILL ALVARADO ---Diagnostic Radiology--- Exam Date/Time 06/14/2019 23:38:07 EDT Exam CR Femur 2+ Views Right n Ordering Physician SCOOTER MCCOLLUM Accession Number [id number] CPT4 Codes 26023 () Reason For Exam pain Report CLINICAL [...] JEFFREY Transcribed Date and Time: 06/14/2019 11:55 [place] XR FOOT RIGHT (MIN 3 VIEWS)o n 06-14-2019 Patient Name: WILL ALVARADO ---Diagnostic Radiology--- Exam Date/Time 06/14/2019 16:26:30 EDT Exam CR Foot Complete 3+ Views Right Ordering Physician MD ORTIZ DOUGALAS R. Accession Number [id number] CPT4 Codes 13497 () Reason For Exam R foot xray [...] midfoot neuropathic changes. Report Dictated on Workstation: [employer] --- Final --- Dictated: 06/14/2019 4:40 pm Dictating Physician: MD GREGORY ANTHONY J Signed Date and Time: 06/14/2019 4:51 pm Signed by: MD GREGORY ANTHONY J Transcribed Date and Time: 06/14/2019 4:40 [facility], [place], [facility] Incoming Radiology Results From [facility] - 06/14/2019 4:52 PM EDT Patient Name: WILL JACINTO ---Diagnostic Radiology--- Exam Date/Time 06/14/2019 16:26:30 EDT Exam CR Foot Complete 3+ Views Right Ordering Physician MD ANGEL, RENE Fontaine Accession Number [id number] CPT4 Codes 41591 () Reason For Exam R foot xray [...] J Transcribed Date and Time: 06/14/2019 4:40 [facility] 01-03-2019 CNOV Office Visit (PLWDMR ) -------- WILL JACINTO ([id number]) 1965 M Date Time Provider Department 01/03/19 [...] put on Avycaz. Prescription orders written on skilled nursing paperwork Discussed with patient in detail Modify [...] capsules by mouth every 6 hours. Acidophilus-Pectin, [place] 25 million cell -100 mg tab Take [...] reviewed Imaging data: reviewed Jayson Hawthorne MD [phone] 01/03/2019 2:22 PM Roselia Sandoval, RN, RN [...] lower leg Continue current wound care from [place] Compression: ? Cast cover may be purchased [...] following changes to the Wound Center at [phone] or go to the Emergency Department: ? [...] CULTURE AND GRAM STAIN [SQWCUL] Order #: [id number]. #:[id number] WOUND CULTURE AND GRAM STAIN [SQWCUL] Order #: [id number]. #:[id number] Prescriptions as of 01/03/2019 Sig: DOXYCYCLINE MONOHYDRATE [...] lower leg Continue current wound care from [place] Compression: ? Cast cover may be [...] following changes to the Wound Center at [phone] or go to the Emergency Department: ? [...] on 01/04/19 [facility] PROGRESSon 01-03-2019 Protein mass conc HNO ID: [id number] Author: Jayson Hawthorne MD Service: (none) Author [...] put on Avycaz. Prescription orders written on skilled nursing paperwork Discussed with patient in detail Modify [...] capsules by mouth every 6 hours. Acidophilus-Pectin, [place] 25 million cell -100 mg tab Take [...] reviewed Imaging data: reviewed Jayson Hawthorne MD [phone] 01/03/2019 2:22 PM [facility] Wound Culture/Stainon 2018 Wound Culture/Stain Sp. Request/Comment: [...] F Ertapenem SUSCEPTIBLE <=0.5 F Critically abnormal [facility] Comment on above: Performed By: #### W CUL ####[facility], [place] [phone] Wound Culture/Stain Sp. Request/Comment: - Eswab Smear [...] on --> ABNORMAL ALERT 01/03/2019 AT 1500 ([id number]) --> ABNORMAL ALERT Many --> ABNORMAL ALERT Providencia stuartii --> ABNORMAL ALERT Refer to specimen collected on --> ABNORMAL ALERT 01/03/2019 AT 1500 ([id number]) --> ABNORMAL ALERT Many --> ABNORMAL ALERT Enterococcus faecalis --> ABNORMAL ALERT Cephalosporins, clindamycin, and TMP-SMX are not effective for the treatment of enterococcal infections. --> ABNORMAL ALERT Rare skin dorinda ORGANISM: Enterococcus faecalis METHOD: Minimum inhibitory concentration(Vitek) Antibiotic Interp TULIO Status Ampicillin SUSCEPTIBLE <=2 F Vancomycin SUSCEPTIBLE 1 F Critically [facility] Comment on above: Performed By: #### W CUL ####[facility], [place] [phone] CNOVon 12-27-2018 CNOV Office Visit (PLWDMR ) -------- WILL JACINTO ([id number]) 1965 M Date Time Provider Department 12/27/18 [...] doing debridement periodically. He was admitted to [facility] both in September as well as October 2018. He is not currently on any antibiotics. MEDICATIONS: ARIPiprazole (ABILIFY) 10 mg tablet Take 10 mg by mouth once daily. acetaminophen 325 mg cap Take 2 capsules by mouth every 6 hours. Acidophilus-Pectin, [place] 25 million cell -100 mg tab Take [...] reviewed Imaging data: reviewed Jayson Hawthorne MD [phone] 12/27/2018 2:07 PM Debbie Casey, RN, RN [...] toes to 1' below the knee. MARY WRAP/Tubi-plastic worker: Foot is warm and pink before and [...] dressing twice daily Apply a size G tubi-plastic worker from behind the toes to 1" below [...] following changes to the Wound Center at [phone] or go to the Emergency Department: ? [...] the wound center. Referring Provider: KYLAH LUU [[id number]] Allergies As of Date: 12/27/2018 (No Known Allergies) Date Reviewed: 12/27/2018 Reviewed by: Priscila (Zina) ZINA Vazquez - Fully Assessed Reason for Visit: Wound Check [133] Cmt: right leg Primary Visit Diagnosis:Chronic osteomyelitis with draining sinus, right ankle and foot (HCC) [M86.471] Other Visit Diagnoses:Lymphedema [I89.0] Pseudomonas aeruginosa infection [A49.8] Type 2 diabetes mellitus with diabetic peripheral angiopathy without gangrene, unspecified whether group home insulin use (HCC) [E11.51] Order(s):WOUND CULTURE AND GRAM STAIN [SQWCUL] Order #: [id number] doxycycline monohydrate (MONODOX) 100 mg capsuleTake 1 [...] instructions from your clinician: WOUND CARE INSTRUCTIONS Wlil Jacinto Wound location: Right lateral foot and [...] dressing twice daily Apply a size G tubi-plastic worker from behind the toes to 1" below [...] following changes to the Wound Center at [phone] or go to the Emergency Department: ? [...] toes to 1' below the knee. MARY WRAP/Tubi-plastic worker: Foot is warm and pink before and [...] on 12/27/18 [facility] PROGRESSon 12-27-2018 Protein mass conc HNO ID: [id number] Author: Jayson Hawthorne MD Service: (none) Author [...] doing debridement periodically. He was admitted to [facility] both in September as well as October 2018. He is not currently on any antibiotics. MEDICATIONS: ARIPiprazole (ABILIFY) 10 mg tablet Take 10 mg by mouth once daily. acetaminophen 325 mg cap Take 2 capsules by mouth every 6 hours. Acidophilus-Pectin, [place] 25 million cell -100 mg tab Take [...] reviewed Imaging data: reviewed Jayson Hawthorne MD [phone] 12/27[facility]2018 [facility] Office Visit (PLWDMR ) -------- WILL JACINTO ([id number]) 1965 M Date Time Provider Department 07/12/18 [...] capsules by mouth every 6 hours. Acidophilus-Pectin, [place] 25 million cell -100 mg tab Take [...] reviewed Imaging data: reviewed Jayson Hawthorne MD [phone] 07/12/2018 2:03 PM Priscila Vazquez MA, MA [...] and kerlix. Size G Tubigrip applied. MARY WRAP/Tubi-plastic worker: Foot is warm and pink before and [...] following changes to the Wound Center at [phone] or go to the Emergency Department: ? [...] diabetic peripheral angiopathy without gangrene, unspecified whether group home insulin use ([facility]) [E11.51] Prescriptions as of 07/12/2018 Sig: DOXYCYCLINE [...] following changes to the Wound Center at [phone] or go to the Emergency Department: ? Fever or chills ? Increased drainage ? Green or yellow drainage ? Foul odor ? Increased pain ? Hardness around the wound ? Redness, warmth or swelling of the surrounding tissue ? Color change to the wound PLAN: Return to the wound center in [address] see Dr[address] Glenn Hawthorne MD/[facility] Visit Notes: >> ZINA Berman Ma Jul [...] and kerlix. Size G Tubigrip applied. MARY WRAP/Tubi-plastic worker: Foot is warm and pink before and [...] on 07/15/18 [facility] PROGRESSon 07-12-2018 Protein mass conc HNO ID: [id number] Author: Jayson Hawthorne MD Service: (none) Author [...] capsules by mouth every 6 hours. Acidophilus-Pectin, [place] 25 million cell -100 mg tab Take [...] reviewed Imaging data: reviewed Jayson Hawthorne MD [phone] 07/12/2018 2:03 PM [facility] 06-28-2018 [facility] Office Visit (PLWDMR ) -------- WILL JACINTO ([id number]) 1965 M Date Time Provider Department 06/28/18 [...] capsules by mouth every 6 hours. Acidophilus-Pectin, [place] 25 million cell -100 mg tab Take [...] following changes to the Wound Center at [phone] or go to the Emergency Department: ? [...] following changes to the Wound Center at [phone] or go to the Emergency Department: ? [...] on 06/30/18 [facility] PROGRESSon 06-28-2018 Protein mass conc HNO ID: [id number] Author: Terrie Kwan Service: (none) Author Type: [...] capsules by mouth every 6 hours. Acidophilus-Pectin, [place] 25 million cell -100 mg tab Take [...] Imaging data: reviewed Ter[facility] Kwan MD [facility] ([facility]WDMR ) -------- WILL JACINTO ([id number]) 1965 M Date Time Provider Department 06/14/18 [...] PICC line to be removed by the skilled nursing Continue compression for edema and lymphedema management Continue aggressive wound care He is at a skilled nursing for wound healing and will go home [...] reviewed Imaging data: reviewed Jayson Hawthorne MD [phone] 06/14/2018 1:56 PM Debbie Casey RN, RN [...] weeks PICC is to be removed per skilled nursing EDUCATION: The patient/family was instructed how to [...] following changes to the Wound Center at [phone] or go to the Emergency Department: ? Fever or chills ? Increased drainage ? Green or yellow drainage ? Foul odor ? Increased pain ? Hardness around the wound ? Redness, warmth or swelling of the surrounding tissue ? Color change to the wound PLAN: Return to the wound center to see ID in 2 weeks PICC is to be removed per skilled nursing Dr. Marine DUMONT/mjl Referring Provider: JAYSON HAWTHORNE [[id number]] Allergies As of Date: 06/14/2018 (No Known Allergies) Date Reviewed: Never Reviewed Reason for Visit: Wound Evaluation [1021] Cmt: right 5th metatarsal Primary Visit Diagnosis:Chronic osteomyelitis with draining sinus, right ankle and foot ([facility]) [M86.471] Other Visit Diagnoses:Lymphedema [I89.0] Pseudomonas aeruginosa infection [A49.8] Type 2 diabetes mellitus with diabetic peripheral angiopathy without gangrene, unspecified whether intermodal dispatcher insulin use ([facility]) [E11.51] Prescriptions as of 06/14/2018 Sig: ARIPIPRAZOLE [...] following changes to the Wound Center at [phone] or go to the Emergency Department: ? Fever or chills ? Increased drainage ? Green or yellow drainage ? Foul odor ? Increased pain ? Hardness around the wound ? Redness, warmth or swelling of the surrounding tissue ? Color change to the wound PLAN: Return to the wound center to see ID in 2 weeks PICC is to be removed per skilled nursing Dr. Marine DUMONT/thiago Visit Notes: >> Debbie [...] weeks PICC is to be removed per skilled nursing EDUCATION: The patient/family was instructed how to [...] on 06/16/18 [facility] PROGRESSon 06-14-2018 Protein mass conc HNO ID: [id number] Author: Jayson Hawthorne MD Service: (none) Author Type: Physician Type: Progress Notes Filed: 06/16/2018 11:23 AM Note Text: INFECTIOUS DISEASE WOUND CENTER NOTE Patient Name: Will Jacinto Date: 06/14/2018 ASSESSMENT: R 5th toe OM PsAG and diphtheroids infection Leg lymphedema Obesity DM2 PLAN: Stop meropenem She has completed 6 weeks of treatment PICC line to be removed by the skilled nursing Continue compression for edema and lymphedema management Continue aggressive wound care He is at a skilled nursing for wound healing and will go home [...] reviewed Imaging data: reviewed Jayson Hawthorne MD [phone] 06/14/2018 1:56 PM Normal [facility] Culture Anaerobeon 06-27-201 8 Culture Anaerobe Specimen Comments: RIGHT FIFTH METATARSALCulture Observations: No anaerobes isolatedSusceptibility Data: --- [facility] Comment on above: Order Comment: CONTR AST PER RADIOLOGIST DISCRETION. R/o abscess, OM Performed By: #### C HARLAN ####[facility] [place] [address] Culture Wound Aerobic w/ Gra chika Rosales 05-04-2018 Culture Wound Aerobic w/ Gram St Specimen Comments: RIGHT FIFTH METATARSALCulture Exam: ---------1. Corynebacterium striatum Small numbers ofSusceptibility Data: --- [facility] Comment on above: Order Comment: CONTR AST PER RADIOLOGIST DISCRETION. R/o abscess, OM Result Comment: [facility] eptibility testing not routinely performed on this isolate. Performed By: #### C XWND ####[facility] [place] [address] Surgical Pathology Depar tmenton 05-04-2018 [facility] Surgical Pathology Department Name WILL JACINTO Pathologist: VIRGIL JIMENEZ, MDDate of Procedure: 05/04/2018Date Received: 05/04/2018Date Reported 05/12/2018Submitting Physician: IWONA NEWSOMEocation: APMISC Copy To/Referring/Attending:Gina GARNER MD Other External # [id number] FINAL DIAGNOSISFIFTH METATARSAL, RIGHT, AMPUTATION: --MARROW WITH CHRONIC OSTEOMYELITIS AND FOCAL HEMATOPOIESIS--BONE AND CARTILAGE WITH DEGENERATIVE CHANGES Electronically Signed Out By VIRGIL JIMENEZ MD/Johnnie the signature on this report, the individual or group listed as making theFinal Interpretation/Diagnosis certifies that they have reviewed this case. Clinical History:Osteomyelitits 5th metatarsal right footSpecimens Submitted As:A: RIGHT FIFTH METATARSAL Other Case Numbers [id number] Description:A. Received in formalin, labeled with the patient's name and hospital numberand right fifth metatarsal is a single fragment of bone measuring 4.3 x 3.1 x2.2 cm. [employer] Team Member sections of the specimen are submitted followingdecalcification .HXRhxr/05/06/2018 Normal [facility] Comment on above: Performed By: #### U HCS ####[facility] Surgical Pathology [address] [place] [address] Ferritinon 04-30-2018 Ferritin 138 ng/mL Normal 8-252 [facility] Comment on above: Performed By: #### B 12, FERRTN ####[place] [address] Iron with TIBCon 04-30-2018 % Saturation 19 % Normal 16-46 [facility] Comment on above: Performed By: #### I RONIBC ####[place] [address] Iron 43 ug/dL Low 50-170 [facility] Comment on above: Performed By: #### I RONIBC ####[place] [address] TIBC 222 ug/dL Low 250-450 [facility] Comment on above: Performed By: #### I RONIBC ####[place] [id number] Occult Blood Stool 1-3on [facility] Occult Blood Normal NEGATIVE [facility] Comment on above: Order Comment: CONTR AST PER RADIOLOGIST DISCRETION. R/o abscess, OM Performed By: #### O CBLDST ####[place] [address] Occult Blood Negative Normal NEGATIVE [facility] Comment on above: Order Comment: CONTR AST PER RADIOLOGIST DISCRETION. R/o abscess, OM Performed By: #### O CBLDST ####[place] [address] Vitamin B12on 04-30-2018 Cobalamins (Vitamin B12) 365.0 pg/mL Normal 193.0-986.0 [facility] Comment on above: Performed By: #### B 12, FERRTN ####[place] [id number] MRI Low Ext RT Non-JT w/wo c ontraston 04-29-2018 MRI Low Ext RT Non-JT w/wo contrast Examination:MRI right footClinical Indication:Pain, swelling and drainage, multiple ulcersComparison:NoneFin dings:Multiplanar multisequence high field strength MRI images were obtained throughthe right foot prior to and after 15 mL Gadavist intravenous gadolinium.Examination is moderately limited by motion artifact and slightly xbvfkzqxxwueoznf-lc-xirq e. Unable to utilize the dedicated foot [...] of the fifth metatarsal.Report Dictated on Workstation: [id number] ed by: Shayy Gregory: 04/29/2018 14:18Read by: Sofia RAY: 04/29/2018 14:18 [facility] Comment on above: Order Comment: CONTR [...] assess given therecent surgeryReport Dictated on Workstation: [id number] by: Garima Love: 04/28/2018 17:30Read by: Sofia PATEL: 04/28/2018 17:30 [facility] Culture Anaerobeon 8 Culture Anaerobe Culture Observations: No anaerobes isolatedSusceptibility Data: --- [facility] Comment on above: Performed By: #### C HARLAN ####[facility] [place] [address] Culture Wound Aerobic w/ Gra m Bobby 03-18-2018 Culture Wound Aerobic w/ Gram St Specimen Comments: BoneCulture Observations: Rare colonies of normal skin dorinda (diphtheroids)Direct Exam: ---------No WBCs seenNo organisms seenSusceptibility Data: --- [facility] Comment on above: Order Comment: TULIO p erformed at additional charge whenindicated Performed By: #### C XWND ####[place] [place], [place] [id number] [facility] Surgical Pathology Depar tmenton 03-18-2018 [facility] Surgical Pathology Department Name WILL JACINTO Pathologist: EVELYNE NUNEZate of Procedure: 03/18/2018Date Received: 03/18/2018Date Reported 03/29/2018Submitting Physician: DILLON NEWSOMEMLocation: APMISC Copy To/Referring/Attending:Gina GARNER MD Other External # [id number] FINAL DIAGNOSISBONE, RIGHT FOOT, EXCISION: --CHRONIC OSTEOMYELITIS Electronically Signed Out By VIRGIL JIMENEZ MD/Johnnie the signature on this report, the individual or group listed as making theFinal Interpretation/Diagnosis certifies that they have reviewed this case. Clinical History:OsteomylitisSpec imens Submitted As:A: BONE RIGHT FOOT Other Case Numbers [id number] Description:Received in formalin, labeled with the patient's name and hospital number and"bone right foot", is a bone measuring 2.7 x 0.7 x 0.7 cm. Representativesections are submitted in 2 cassettes following decalcification.DJOSumma ry of Cassettes:Specimen Label SiteA 1 resection margin 2 representatived/ 018 Normal [facility] Comment on above: Performed By: #### U [facility] ####[facility] Surgical Pathology [address] [place] [address] XR Chest Mobile 1 viewon XR Chest [...] mildcongestive heart failure/fluid overload.Report Dictated on Workstation: [id number] ated by: Nay Ovalles: 03/18/2018 14:29Read by: SERGIO OVALLES, MDDate: 03/18/2018 14:29 Normal [facility] Iron with TIBCon 03-16-2018 % Saturation 25 % Normal 16-46 [facility] Comment on above: Performed By: #### I RONIBC ####[facility] [address] [place] [address] Iron 65 ug/dL Normal 50-170 [facility] Comment on above: Performed By: #### I RONIBC ####[facility] [place] [address] TIBC 258 ug/dL Normal 250-450 [facility] Comment on above: Performed By: #### I RONIBC ####[address] [address] MRI Low Ext RT Non-Jt wo con [...] 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.Report Dictated on Workstation: [id number] ated by: Alonzo GregoryOn: 03/16/2018 10:41Read by: Sofia RAY: 03/16/2018 10:41 Normal [facility] Comment on above: Order Comment: CONTR AST PER RADIOLOGIST DISCRETION Occult Blood Stool 1-3on Occult Blood Normal NEGATIVE [facility] Comment on above: Order Comment: x1 Performed By: #### O CBLDST ####[place] [address] Occult Blood Negative Normal NEGATIVE [facility] Comment on above: Order Comment: x1 Performed By: #### O CBLDST ####[address] [address] XR Foot Right complete 3 plu s [...] soft tissue gas collection.Report Dictated on Workstation: [id number] laura by: Nay Muniz: 03/15/2018 23:44Read by: SERGIO MUNIZ, EVELYNEate: 03/15/2018 23:44 [facility] Comment on above: Order Comment: R/o O M Culture Anaerobeon 8 Culture Anaerobe Specimen Comments: RIGHT FOOT SOFT TISSCulture Exam: ---------1. anaerobic gram positive cocci Small numbers ofSusceptibility Data: --- [facility] Comment on above: Order Comment: AEROB IC/ANAEROBIC CULTURES OF RIGHT FOOT SOFT TISS Result Comment: (TULIO s not performed on anaerobes) Performed By: #### C HARLAN ####[facility], [place] [address] Culture Wound Aerobic w/ Gra m Ston 02-04-2018 Culture Wound Aerobic w/ Gram St Specimen Comments: RIGHT FOOT SOFT TISSCulture Observations: Small numbers of mixed enteric dorinda and mixed skin dorinda- more than 3 organisms with none predominant.No Staphylococcus aureus, Pseudomonas aeruginosa or beta Streptococcus isolatedDirect Exam: ---------No WBCs seenNo organisms seenSusceptibility Data: --- [facility] Comment on above: Order Comment: AEROB IC/ANAEROBIC CULTURES OF RIGHT FOOT SOFT TISS Performed By: #### C MANJU ####[facility] [place], [place] [address] MRI Low Ext RT Non-JT w/wo javier [facility] 02-02-2018 MRI Low Ext RT Non-JT w/wo [...] clinical concern of osteomyelitis.Report Dictated on Workstation: [id number] ated by: Irma Barragan: 02/03/2018 12:13Read by: IFTIKHAR BARRAGAN, EVELYNEate: 02/03/2018 12:13 [facility] Comment on above: Order Comment: CONTR [...] d soft tissue swelling.Report Dictated on Workstation: [id number] ated by: Nay Muniz: 02/02/2018 15:32Read by: SERGIO MUNIZ, MDDate: 02/02/2018 15:32 [facility] Comment on above: Order Comment: R/o O M Vital Signs Date Time Vital Sign Value Performing Clinician Facility 07-11-2025 00:48-0400 Diastolic blood pressure 86 mm[Hg] Hermes Issa MD Work Phone: [facility] 07-11-2025 00:48-0400 Heart rate 72 /min Hermes Issa MD Work Phone: [facility] 07-11-2025 00:48-0400 Respiratory rate 18 /min Hermes Issa MD Work Phone: [facility] 07-11-2025 00:48-0400 SaO2% (BldA) [Mass fraction] 93 % Hermes Issa MD Work Phone: [facility] 07-11-2025 00:48-0400 Systolic blood pressure 147 mm[Hg] Hermes Issa MD Work Phone: [facility] 07-10-2025 15:56-0400 Body height 167.6 cm Hermes Issa MD Work Phone: [facility] 07-10-2025 15:56-0400 Body mass index (BMI) [Ratio] 53.42 kg/m2 Hermes Issa MD Work Phone: [facility] 07-10-2025 15:56-0400 Body temperature 98.4 [degF] Hermes Issa MD Work Phone: [facility] 07-10-2025 15:56-0400 Body weight 150.14 kg Hermes Issa MD Work Phone: [facility] 06-07-2025 13:25-0400 Diastolic blood pressure 71 mm[Hg] Farhad Chavez MD Work Phone: [facility] 06-07-2025 13:25-0400 Heart rate 77 /min Farhad Chavez MD Work Phone: [facility] 06-07-2025 13:25-0400 Respiratory rate 18 /min Farhad Chavez MD Work Phone: [facility] 06-07-2025 13:25-0400 SaO2% (BldA) [Mass fraction] 95 % Farhad Chavez MD Work Phone: [facility] 06-07-2025 13:25-0400 Systolic blood pressure 143 mm[Hg] Farhad Chavez MD Work Phone: [facility] 06-07-2025 11:35-0400 Body temperature 97 [degF] Farhad Chavez MD Work Phone: [facility] 04-06-2025 08:50-0400 Body height 167.6 cm Kaushal Schultz PA-C Work Phone: [facility] 04-06-2025 08:50-0400 Body mass index (BMI) [Ratio] 48.1 kg/m2 Gunner Stall PA-C Work Phone: [employer] 04-06-2025 08:50-0400 Body weight 135.17 kg Gunner Stall PA-C Work Phone: [employer] 04-06-2025 08:50-0400 Diastolic blood pressure 72 mm[Hg] Gunner Stall PA-C Work Phone: [employer] 04-06-2025 08:50-0400 Heart rate 86 /min Gunner Stall PA-C Work Phone: [employer] 04-06-2025 08:50-0400 Systolic blood pressure 114 mm[Hg] Gunner Stall PA-C Work Phone: [employer] [facility] 02-01-2025 09:50-0400 Body height 167.6 [address] Side[address] PRODUCT DISTRIBUTION SPECIALIST - ARCHITECTURAL DRAFTSPERSON Work Phone: [employer] 02-01-2025 09:50-0400 Body mass index (BMI) [Ratio] 48.1 kg/m2 [employer]walk PRODUCT DISTRIBUTION SPECIALIST - ARCHITECTURAL DRAFTSPERSON Work Phone: [facility] 02-01-2025 09:50-0400 Body temperature 97 [degF] [employer] PRODUCT DISTRIBUTION SPECIALIST - ARCHITECTURAL DRAFTSPERSON Work Phone: [facility] 02-01-2025 09:50-0400 Body weight 135.17 kg [facility] PRODUCT DISTRIBUTION SPECIALIST - ARCHITECTURAL DRAFTSPERSON Work Phone: [facility] 02-01-2025 09:50-0400 Diastolic blood pressure 82 mm[Hg] [facility] PRODUCT DISTRIBUTION SPECIALIST - ARCHITECTURAL DRAFTSPERSON Work Phone: [facility] 02-01-2025 09:50-0400 Heart rate 76 /min [employer] PRODUCT DISTRIBUTION SPECIALIST - ARCHITECTURAL DRAFTSPERSON Work Phone: [facility] 02-01-2025 09:50-0400 Respiratory rate 18 /min [employer] PRODUCT DISTRIBUTION SPECIALIST - ARCHITECTURAL DRAFTSPERSON Work Phone: [facility] 02-01-2025 09:50-0400 SaO2% (BldA) [Mass fraction] 97 % [facility] PRODUCT DISTRIBUTION SPECIALIST - ARCHITECTURAL DRAFTSPERSON Work Phone: [facility] 02-01-2025 09:50-0400 Systolic blood pressure 124 mm[Hg] Alejandro Mandel APRN - ARCHITECTURAL DRAFTSPERSON Work Phone: [facility] 01-01-2025 11:26-0500 Body height 167.6 cm Margo Guerrero PRODUCT DISTRIBUTION SPECIALIST - ARCHITECTURAL DRAFTSPERSON Work Phone: [facility] 01-01-2025 11:26-0500 Body mass index (BMI) [Ratio] 48.1 kg/m2 Margo Guerrero PRODUCT DISTRIBUTION SPECIALIST - ARCHITECTURAL DRAFTSPERSON Work Phone: [facility] 01-01-2025 11:26-0500 Body weight 135.17 kg Margo Guerrero PRODUCT DISTRIBUTION SPECIALIST - ARCHITECTURAL DRAFTSPERSON Work Phone: [facility] 01-01-2025 11:26-0500 Diastolic blood pressure 62 mm[Hg] Margo Guerrero PRODUCT DISTRIBUTION SPECIALIST - ARCHITECTURAL DRAFTSPERSON Work Phone: [facility] 01-01-2025 11:26-0500 Heart rate 72 /min Margo Guerrero PRODUCT DISTRIBUTION SPECIALIST - ARCHITECTURAL DRAFTSPERSON Work Phone: [facility] 01-01-2025 11:26-0500 Systolic blood pressure 128 mm[Hg] Margo Guerrero PRODUCT DISTRIBUTION SPECIALIST - ARCHITECTURAL DRAFTSPERSON Work Phone: [facility] 12-21-2024 08:04-0500 Body height 167.6 cm Wanda Johnson PRODUCT DISTRIBUTION SPECIALIST - ARCHITECTURAL DRAFTSPERSON Work Phone: [facility] 12-21-2024 08:04-0500 Body mass index (BMI) [Ratio] 51.65 kg/m2 Wanda Johnson PRODUCT DISTRIBUTION SPECIALIST - ARCHITECTURAL DRAFTSPERSON Work Phone: [facility] 12-21-2024 08:04-0500 Body weight 145.15 kg Wanda Cmer PRODUCT DISTRIBUTION SPECIALIST - ARCHITECTURAL DRAFTSPERSON Work Phone: [facility] 12-21-2024 08:04-0500 Diastolic blood pressure 69 mm[Hg] Wanda Cmer PRODUCT DISTRIBUTION SPECIALIST - ARCHITECTURAL DRAFTSPERSON Work Phone: [facility] 12-21-2024 08:04-0500 Heart rate 78 /min Wanda Cmer PRODUCT DISTRIBUTION SPECIALIST - ARCHITECTURAL DRAFTSPERSON Work Phone: [facility] 12-21-2024 08:04-0500 Systolic blood pressure 137 mm[Hg] Wanda Johnson PRODUCT DISTRIBUTION SPECIALIST - ARCHITECTURAL DRAFTSPERSON Work Phone: [facility] 12-07-2024 12:53-0500 Body temperature 97.59 [degF] Lilo Rizo MD Work Phone: [facility] 12-07-2024 12:53-0500 Diastolic blood pressure 80 mm[Hg] Lilo Rizo MD Work Phone: [facility] 12-07-2024 12:53-0500 Heart rate 82 /min Lilo Rizo MD Work Phone: [facility] 12-07-2024 12:53-0500 Systolic blood pressure 139 mm[Hg] Lilo Rizo MD Work Phone: [facility] 11-14-2024 10:09-0500 Body height 167.6 cm Asuncion Black PRODUCT DISTRIBUTION SPECIALIST - ARCHITECTURAL DRAFTSPERSON Work Phone: [facility] 11-14-2024 10:09-0500 Body temperature 97.2 [degF] Asuncion Black PRODUCT DISTRIBUTION SPECIALIST - ARCHITECTURAL DRAFTSPERSON Work Phone: [facility] 11-14-2024 10:09-0500 Diastolic blood pressure 79 mm[Hg] Asuncion Black PRODUCT DISTRIBUTION SPECIALIST - ARCHITECTURAL DRAFTSPERSON Work Phone: [facility] 11-14-2024 10:09-0500 Heart rate 83 /min Asuncion Black PRODUCT DISTRIBUTION SPECIALIST - ARCHITECTURAL DRAFTSPERSON Work Phone: [facility] 11-14-2024 10:09-0500 Systolic blood pressure 140 mm[Hg] Asuncion Black PRODUCT DISTRIBUTION SPECIALIST - ARCHITECTURAL DRAFTSPERSON Work Phone: [facility] 11-12-2024 22:42-0500 Body temperature 98.6 [degF] Virgil Mederos MD Work Phone: [facility] 11-12-2024 22:42-0500 Diastolic blood pressure 68 mm[Hg] Virgil Mederos MD Work Phone: [facility] 11-12-2024 22:42-0500 Heart rate 86 /min Virgil Mederos MD Work Phone: [facility] 11-12-2024 22:42-0500 Respiratory rate 16 /min Virgil Mederos MD Work Phone: [facility] 11-12-2024 22:42-0500 SaO2% (BldA) [Mass fraction] 96 % Virgil Mederos MD Work Phone: [facility] 11-12-2024 22:42-0500 Systolic blood pressure 144 mm[Hg] Virgil Mederos MD Work Phone: [facility] 11-10-2024 11:07-0500 Body height 167.6 cm Asuncion Valencia PRODUCT DISTRIBUTION SPECIALIST - ARCHITECTURAL DRAFTSPERSON Work Phone: [facility] 11-10-2024 11:07-0500 Body temperature 97.3 [degF] Asuncion Erik PRODUCT DISTRIBUTION SPECIALIST - ARCHITECTURAL DRAFTSPERSON Work Phone: [facility] 11-10-2024 11:07-0500 Diastolic blood pressure 81 mm[Hg] Asuncion Valencia PRODUCT DISTRIBUTION SPECIALIST - ARCHITECTURAL DRAFTSPERSON Work Phone: [facility] 11-10-2024 11:07-0500 Heart rate 83 /min Asuncion Valencia PRODUCT DISTRIBUTION SPECIALIST - ARCHITECTURAL DRAFTSPERSON Work Phone: [facility] 11-10-2024 11:07-0500 Systolic blood pressure 142 mm[Hg] Asuncion Valencia PRODUCT DISTRIBUTION SPECIALIST - ARCHITECTURAL DRAFTSPERSON Work Phone: [facility] 10-24-2024 14:17-0500 Body temperature 96.91 [degF] Vicente Mixon MD Work Phone: [facility] 10-24-2024 13:39-0500 Diastolic blood pressure 83 mm[Hg] Vicente Mixon MD Work Phone: [facility] 10-24-2024 13:39-0500 Heart rate 64 /min Vicente Mixon MD Work Phone: [facility] 10-24-2024 13:39-0500 Respiratory rate 16 /min Vicente Mixon MD Work Phone: [facility] 10-24-2024 13:39-0500 SaO2% (BldA) [Mass fraction] 98 % Vicente Mixon MD Work Phone: [facility] 10-24-2024 13:39-0500 Systolic blood pressure 123 mm[Hg] Vicente Mixon MD Work Phone: [facility] 10-23-2024 13:55-0500 SaO2% (BldA) [Mass fraction] 93 % Dontrell Glozman DO Work Phone: [facility] 10-23-2024 08:14-0500 Body temperature 97.7 [degF] Dontrell Glozman DO Work Phone: [facility] 10-23-2024 08:14-0500 Diastolic blood pressure 54 mm[Hg] Dontrell Glozman DO Work Phone: [facility] 10-23-2024 08:14-0500 Heart rate 85 /min Dontrell Glozman DO Work Phone: [facility] 10-23-2024 08:14-0500 Respiratory rate 20 /min Dontrell Glozman DO Work Phone: [facility] 10-23-2024 08:14-0500 Systolic blood pressure 127 mm[Hg] Dontrell Glozman DO Work Phone: [facility] 10-22-2024 13:16-0500 Body height 167.6 cm Dontrell Glozman DO Work Phone: [facility] 10-18-2024 21:04-0500 Body mass index (BMI) [Ratio] 51.65 kg/m2 Dontrell Glozman DO Work Phone: [facility] 10-18-2024 21:04-0500 Body weight 145.15 kg Dontrell Glozman DO Work Phone: [facility] 02-11-2024 09:55-0400 Body height 167.6 cm Herber Palmerson PRODUCT DISTRIBUTION SPECIALIST - ARCHITECTURAL DRAFTSPERSON Work Phone: [facility] 02-11-2024 09:55-0400 Body mass index (BMI) [Ratio] 46.83 kg/m2 Herber Ramos APRN - ARCHITECTURAL DRAFTSPERSON Work Phone: [facility] 02-11-2024 09:55-0400 Body weight 131.54 kg Herber Ramos APRN - ARCHITECTURAL DRAFTSPERSON Work Phone: [facility] 02-11-2024 09:55-0400 Diastolic blood pressure 78 mm[Hg] Herber Ramos APRN - ARCHITECTURAL DRAFTSPERSON Work Phone: [facility] 02-11-2024 09:55-0400 Heart rate 79 /min Herber Ramos APRN - ARCHITECTURAL DRAFTSPERSON Work Phone: [facility] 02-11-2024 09:55-0400 Respiratory rate 14 /min Herber Ramos APRN - ARCHITECTURAL DRAFTSPERSON Work Phone: [facility] 02-11-2024 09:55-0400 SaO2% (BldA) [Mass fraction] 99 % Herber Ramos APRN - ARCHITECTURAL DRAFTSPERSON Work Phone: [facility] Comment on above: 02-11-2024 09:55-0400 Systolic blood pressure 131 mm[Hg] Herber Ramos APRN - ARCHITECTURAL DRAFTSPERSON Work Phone: [facility] 01-27-2024 18:55-0400 Body height 167.6 cm Fermin Nesheim DO Work Phone: [facility] 01-27-2024 18:55-0400 Body mass index (BMI) [Ratio] 46.81 kg/m2 Fermin Nesheim DO Work Phone: [facility] 01-27-2024 18:55-0400 Body temperature 97.59 [degF] Fermin Nesheim DO Work Phone: [facility] 01-27-2024 18:55-0400 Body weight 131.54 kg Fermin Nesheim DO Work Phone: [facility] 01-27-2024 18:55-0400 Diastolic blood pressure 63 mm[Hg] Fermin [facility]esheim [facility] 01-27-2024 18:55-0400 Heart rate 78 /min Fermin Nesheim DO Work Phone: [facility] 01-27-2024 18:55-0400 Respiratory rate 18 /min Fermin Nesheim DO Work Phone: [facility] 01-27-2024 18:55-0400 SaO2% (BldA) [Mass fraction] 99 % Fermin Nesheim DO Work Phone: [facility] 01-27-2024 18:55-0400 Systolic blood pressure 155 mm[Hg] Fermin Nesheim DO Work Phone: [facility] 01-26-2024 21:29-0400 Body height 167.6 cm Art Zeng DO Work Phone: [facility] 01-26-2024 21:29-0400 Body mass index (BMI) [Ratio] 46.81 kg/m2 Art Peraltaaci DO Work Phone: [facility] 01-26-2024 21:29-0400 Body weight 131.54 kg Art Peraltaaci DO Work Phone: [facility] 01-26-2024 21:28-0400 Body temperature 97.9 [degF] Art Kathrynaci DO Work Phone: [facility] 01-26-2024 21:28-0400 Diastolic blood pressure 63 mm[Hg] Art Kathrynaci DO Work Phone: [facility] 01-26-2024 21:28-0400 Heart rate 83 /min Art Peraltaaci DO Work Phone: [facility] 01-26-2024 21:28-0400 Respiratory rate 16 /min Art Peraltaaci DO Work Phone: [facility] 01-26-2024 21:28-0400 SaO2% (BldA) [Mass fraction] 100 % Art Kathrynaci DO Work Phone: [facility] 01-26-2024 21:28-0400 Systolic blood pressure 124 mm[Hg] Art Kathrynaci DO Work Phone: [facility] 01-22-2024 07:15-0400 Body temperature 97.59 [degF] Jaquan Huschke DO Work Phone: [facility] 01-22-2024 07:15-0400 Diastolic blood pressure 51 mm[Hg] Jaquan Morris DO Work Phone: [facility] 01-22-2024 07:15-0400 Heart rate 94 /min Jaquan Morris DO Work Phone: [facility] 01-22-2024 07:15-0400 Respiratory rate 20 /min Jaquan Morris DO Work Phone: [facility] 01-22-2024 07:15-0400 SaO2% (BldA) [Mass fraction] 97 % Jaquan Morris DO Work Phone: [facility] 01-22-2024 07:15-0400 Systolic blood pressure 160 mm[Hg] Jaquan Morris DO Work Phone: [facility] 12-29-2023 08:04-0500 Diastolic blood pressure 53 mm[Hg] Edwin Bustos MD Work Phone: [facility] 12-29-2023 08:04-0500 Heart rate 83 /min Edwin Bustos MD Work Phone: [facility] 12-29-2023 08:04-0500 Respiratory rate 17 /min Edwin Bustos MD Work Phone: [facility] 12-29-2023 08:04-0500 SaO2% (BldA) [Mass fraction] 100 % Edwin Bustos MD Work Phone: [facility] 12-29-2023 08:04-0500 Systolic blood pressure 132 mm[Hg] Edwin Bustos MD Work Phone: [facility] 12-28-2023 23:14-0500 Body height 167.6 cm Edwin Bustos MD Work Phone: [facility] 12-28-2023 23:14-0500 Body mass index (BMI) [Ratio] 52.29 kg/m2 Edwin Bustos MD Work Phone: [facility] 12-28-2023 23:14-0500 Body temperature 97.59 [degF] Edwin Bustos MD Work Phone: [facility] 12-28-2023 23:14-0500 Body weight 146.97 kg Edwin Bustos MD Work Phone: [facility] 12-09-2023 10:05-0500 Diastolic blood pressure 63 mm[Hg] Caridad Evans MD Work Phone: [facility] 12-09-2023 10:05-0500 Heart rate 78 /min Caridad Evans MD Work Phone: [facility] 12-09-2023 10:05-0500 Respiratory rate 23 /min Caridad Evans MD Work Phone: [facility] 12-09-2023 10:05-0500 SaO2% (BldA) [Mass fraction] 97 % Caridad Evans MD Work Phone: [facility] 12-09-2023 10:05-0500 Systolic blood pressure 159 mm[Hg] Caridad Evans MD Work Phone: [facility] 12-09-2023 05:22-0500 Body mass index (BMI) [Ratio] 51.7 kg/m2 Caridad Evans MD Work Phone: [facility] 12-09-2023 05:22-0500 Body temperature 98.4 [degF] Caridad Evans MD Work Phone: [facility] 12-09-2023 05:22-0500 Body weight 145.29 kg Caridad Evans MD Work Phone: [facility] 10-16-2023 21:27-0500 Body temperature 96.91 [degF] Rosaura Mustafa DO Work Phone: [facility] 10-16-2023 21:27-0500 Diastolic blood pressure 59 mm[Hg] Rosaura Mustafa DO Work Phone: [facility] 10-16-2023 21:27-0500 Heart rate 76 /min Rosaura Mustafa DO Work Phone: [facility] 10-16-2023 21:27-0500 Respiratory rate 20 /min Rosaura Mustafa DO Work Phone: [facility] 10-16-2023 21:27-0500 SaO2% (BldA) [Mass fraction] 94 % Rosaura Mustafa DO Work Phone: [facility] 10-16-2023 21:27-0500 Systolic blood pressure 100 mm[Hg] Rosaura Mustafa DO Work Phone: [facility] 10-11-2023 11:21-0500 Body height 167.6 cm Rosaura Mustafa DO [facility] 10-07-2023 16:06-0500 Body mass index (BMI) [Ratio] 51 kg/m2 Rosaura Mustafa DO Work Phone: [facility] 10-07-2023 16:06-0500 Body weight 143.34 kg Rosaura Mustafa DO Work Phone: [facility] 08-19-2023 19:25-0400 Body temperature 97.3 [degF] Aaron [facility]ombash DO [facility] 08-19-2023 19:25-0400 Diastolic blood pressure 60 mm[Hg] Aaron Gombash DO Work Phone: [facility] 08-19-2023 19:25-0400 Heart rate 86 /min Aaron Gombash DO Work Phone: [facility] 08-19-2023 19:25-0400 Respiratory rate 18 /min Aaron Gombash DO Work Phone: [facility] 08-19-2023 19:25-0400 SaO2% (BldA) [Mass fraction] 95 % Aaron Gombash DO Work Phone: [facility] 08-19-2023 19:25-0400 Systolic blood pressure 120 mm[Hg] Aaron Gombash DO Work Phone: [facility] 08-17-2023 12:17-0400 Body height 167.6 cm Aaron Gombash DO Work Phone: [facility] 08-17-2023 12:17-0400 Body mass index (BMI) [Ratio] 54.72 kg/m2 Aaron Gombash DO Work Phone: [facility] 08-17-2023 12:17-0400 Body weight 153.77 kg Aaron Gombash DO Work Phone: [facility] 08-08-2023 13:35-0400 Diastolic blood pressure 63 mm[Hg] Gayle Trevizo MD Work Phone: [facility] 08-08-2023 13:35-0400 Heart rate 100 /min Gayle Trevizo MD Work Phone: [facility] 08-08-2023 13:35-0400 Respiratory rate 20 /min Gayle Trevizo MD Work Phone: [facility] 08-08-2023 13:35-0400 SaO2% (BldA) [Mass fraction] 93 % Gayle Trevizo MD Work Phone: [facility] 08-08-2023 13:35-0400 Systolic blood pressure 122 mm[Hg] Gayle Trevizo MD Work Phone: [facility] 08-08-2023 06:36-0400 Body height 167.6 cm Gayle Trevizo MD Work Phone: [facility] 08-08-2023 06:36-0400 Body mass index (BMI) [Ratio] 54.72 kg/m2 Gayle Trevizo MD Work Phone: [facility] 08-08-2023 06:36-0400 Body temperature 98.29 [degF] Gayle Trevizo MD Work Phone: [facility] 08-08-2023 06:36-0400 Body weight 153.77 kg Gayle Trevizo MD Work Phone: [facility] 07-01-2023 11:21-0400 Body temperature 97.59 [degF] Rosaura Mustafa DO Work Phone: [facility] 07-01-2023 11:21-0400 Diastolic blood pressure 79 mm[Hg] Rosaura Mustafa DO Work Phone: [facility] 07-01-2023 11:21-0400 Heart rate 83 /min Rosaura Mustafa DO Work Phone: [facility] 07-01-2023 11:21-0400 Respiratory rate 20 /min Rosaura Mustafa DO Work Phone: [facility] 07-01-2023 11:21-0400 SaO2% (BldA) [Mass fraction] 94 % Rosaura Mustafa DO Work Phone: [facility] 07-01-2023 11:21-0400 Systolic blood pressure 133 mm[Hg] Rosaura Mustafa DO Work Phone: [facility] 07-01-2023 03:09-0400 Body mass index (BMI) [Ratio] 53.2 kg/m2 Rosaura Mustafa DO Work Phone: [facility] 07-01-2023 03:09-0400 Body weight 149.51 kg Rosaura Mustafa DO Work Phone: [facility] 03-08-2023 19:30-0400 Body temperature 98.49 [degF] Karlos Osborn DO Work Phone: [facility] 03-08-2023 19:30-0400 Diastolic blood pressure 62 mm[Hg] Karlos Plasencial DO Work Phone: [facility] 03-08-2023 19:30-0400 Heart rate 82 /min Karlos Voll DO Work Phone: [facility] 03-08-2023 19:30-0400 Respiratory rate 18 /min Karlos Plasencial DO Work Phone: [facility] 03-08-2023 19:30-0400 SaO2% (BldA) [Mass fraction] 98 % Kralos Osborn DO Work Phone: [facility] 03-08-2023 19:30-0400 Systolic blood pressure 140 mm[Hg] Karlos Plasencial DO Work Phone: [facility] 03-08-2023 12:54-0400 Body mass index (BMI) [Ratio] 54.07 kg/m2 Karlos Voll DO Work Phone: [facility] 03-08-2023 12:54-0400 Body weight 151.96 kg Karlos Plasencial DO Work Phone: [facility] 02-09-2023 10:39-0400 Diastolic blood pressure 75 mm[Hg] Geronimo Lee MD Work Phone: [facility] 02-09-2023 10:39-0400 Systolic blood pressure 137 mm[Hg] Geronimo Lee MD Work Phone: [facility] 12-08-2020 19:11-0500 BP Diastolic 74 mm[Hg] [facility] [place] 12-08-2020 19:11-0500 BP Systolic 151 mm[Hg] [facility] [place] 12-08-2020 19:11-0500 Pulse (Heart Rate) 70 /min [facility] [place] 12-08-2020 19:11-0500 Pulse Oximetry 98 % [facility] [place] 12-08-2020 19:11-0500 Respiratory Rate 15 /min [facility] [place] 12-08-2020 15:12-0500 Body Temperature 98.71 [degF] [facility] [place] 12-08-2020 15:12-0500 Height 167.6 cm [facility] [place] 11-28-2020 14:37-0500 Body Temperature 97.81 [degF] [facility] [place] 11-28-2020 14:37-0500 BP Diastolic 79 mm[Hg] [facility] [place] 11-28-2020 14:37-0500 BP Systolic 128 mm[Hg] Joel Nelson [facility] 11-28-2020 14:37-0500 Pulse (Heart Rate) 75 /min Joel Nelson [facility] 11-28-2020 14:37-0500 Pulse Oximetry 95 % Joel Nelson [facility] 11-28-2020 14:37-0500 Respiratory Rate 18 /min Joel Nelson [facility] 11-27-2020 15:57-0500 Height 167.6 cm Joel Nelson [facility] 11-27-2020 06:28-0500 BMI (Body Mass Index) 51.21 kg/m2 Joel Nelson [facility] 11-27-2020 06:28-0500 Body weight 143.93 kg Joeljaci Nelson [facility] 09-30-2020 14:21-0500 Body Temperature 98.71 [degF] Art Zeng [facility] 09-30-2020 14:21-0500 BP Diastolic 61 mm[Hg] Art Zeng [facility] 09-30-2020 14:21-0500 BP Systolic 115 mm[Hg] Art Zeng [facility] 09-30-2020 14:21-0500 Pulse (Heart Rate) 107 /min Art Zeng [facility] 09-30-2020 14:21-0500 Pulse Oximetry 97 % [facility] [place] 09-30-2020 14:21-0500 Respiratory Rate 18 /min Art Zeng [facility] 09-30-2020 05:45-0500 BMI (Body Mass Index) 53.34 kg/m2 Art Zeng [facility] 09-30-2020 05:45-0500 Body weight 149.91 kg Art Zeng [facility] 09-26-2020 13:28-0500 Height 167.6 cm Art Zeng [facility] 01-02-2020 12:22-0500 Body Temperature 96.3 [degF] Justin Walsh [facility] 01-02-2020 12:22-0500 BP Diastolic 80 mm[Hg] Justin Walsh [facility] 01-02-2020 12:22-0500 BP Systolic 142 mm[Hg] [facility] [place] [place] 01-02-2020 12:22-0500 Pulse (Heart Rate) 115 /min [facility] [place] [place] 01-02-2020 12:22-0500 Pulse Oximetry 95 % [facility] [place] 01-02-2020 12:22-0500 Respiratory Rate 16 /min Justin Walsh [place] 01-02-2020 12:15-0500 BMI (Body Mass Index) 54.88 kg/m2 Justin Walsh [place] 01-02-2020 12:15-0500 Body weight 154.22 kg Justincarolyn Walsh [place], [place] Comment on above: verbal, arrived in own WC, did not know exact weight of 01-02-2020 12:15-0500 Height 167.6 cm Justin Walsh [place] 06-27-2019 14:00-0400 BP Diastolic 74 mm[Hg] [place] 06-27-2019 14:00-0400 BP Systolic 123 mm[Hg] [place] 06-27-2019 02:01-0400 Pulse (Heart Rate) 90 /min [place] 06-27-2019 02:01-0400 Pulse Oximetry 100 % [place] 06-27-2019 02:01-0400 Respiratory Rate 17 /min [place] 06-26-2019 21:32-0400 BMI (Body Mass Index) 62.46 kg/m2 [place] 06-26-2019 21:32-0400 Body Temperature 98.01 [degF] [place] 06-26-2019 21:32-0400 Body weight 175.54 kg [place] 06-26-2019 21:32-0400 Height 167.6 cm [place] 06-20-2019 15:37-0400 Body Temperature 100.09 [degF] [...] 09-06-2025 Telephone encounter Dany Woodruff APRN - ENGINEER EXHAUSTER Work Phone: [facility] Comment on above: Diabetes (BGL) Start: 08-28-2025 ambulatory Jared LEON Faci lity:[facility] Start: 08-23-2025 ambulatory Jared LEON Faci lity:[facility] Start: 07-27-2025 End: 08-01-2025 Telephone encounter Dany Woodruff APRN - ENGINEER EXHAUSTER Work Phone: [facility] Comment on above: Diabetes Start: 07-26-2025 End: 07-26-2025 ambulatory DANY WOODRUFF [facility] Start: 07-26-2025 End: 07-26-2025 Office outpatient visit 40 minutes Dany Woodruff APRN - ENGINEER EXHAUSTER Work Phone: [facility] Comment on above: Type 2 [...] 07-23-2025 End: 07-24-2025 Telephone encounter Dany Woodruff PRODUCT DISTRIBUTION SPECIALIST - ENGINEER EXHAUSTER Work Phone: [facility] Comment on above: Diabetes (BGL) Start: 07-19-2025 End: 07-19-2025 ambulatory Jared LEON Facility:[facility] Start: 07-18-2025 End: 07-18-2025 Telephone encounter Dany Woodruff PRODUCT DISTRIBUTION SPECIALIST - ENGINEER EXHAUSTER Work Phone: [facility] Comment on above: Diabetes (BGL) Start: 07-12-2025 ambulatory Jared LEON Faci lity:[facility] Start: 07-10-2025 End: 07-11-2025 Emergency department patient visit Hermes Issa MD Work Phone: [facility] Comment on above: Acute nonintractable headache, unspecified headache type (Primary Dx); Nausea; Acute cystitis without hematuria; Hyperglycemia Start: 07-10-2025 End: 07-10-2025 ambulatory Jared LEON Facility:[facility] Start: 07-06-2025 End: 07-06-2025 ambulatory Jared LEON Facility:[facility] Start: 07-04-2025 End: 07-11-2025 Telephone encounter Dany Woodruff PRODUCT DISTRIBUTION SPECIALIST - ENGINEER EXHAUSTER Work Phone: [facility] Comment on above: Diabetes (BGL) Start: 06-27-2025 End: 07-04-2025 Telephone encounter Dany Woodruff PRODUCT DISTRIBUTION SPECIALIST - ENGINEER EXHAUSTER Work Phone: [facility] Comment on above: Diabetes (BGL) Start: 06-19-2025 End: 06-26-2025 Telephone encounter Dany Woodruff PRODUCT DISTRIBUTION SPECIALIST - ENGINEER EXHAUSTER Work Phone: [facility] Comment on above: Diabetes (BGL) Start: 06-11-2025 ambulatory Jared Chung lity:[facility] Start: 06-07-2025 End: 06-11-2025 Telephone encounter Gunner Stall PA-C [facility] [facility] Comment on above: Diabetes (BGL) Start: 06-07-2025 End: 06-07-2025 ambulatory FARHAD CHAVEZ [facility] Start: 06-07-2025 End: 06-07-2025 Subsequent hospital visit by physician Farhad Chavez MD Work Phone: [facility] Endoscopy Start: 05-31-2025 End: 06-01-2025 Telephone encounter Gunner Stall PA-C Work Phone: [facility] Comment on above: Diabetes (BGL) Care Coordination (E GD Colon reminder call) Start: 05-14-2025 End: 05-18-2025 Telephone encounter Gunner Stall PA-C Work Phone: [facility] Comment on above: Advice Only (/) Start: 05-10-2025 ambulatory Jared Chung lity:[facility] Start: 05-07-2025 End: 05-07-2025 Telephone encounter Gunner Stall PA-C Work Phone: [facility] Comment on above: Diabetes (BGL) Start: 04-30-2025 End: 05-01-2025 Telephone encounter Gunner Stall PA-C Work Phone: [facility] Comment on above: Diabetes (BGL) Start: 04-17-2025 End: 04-17-2025 Telephone encounter Gunner Stall PA-C Work Phone: [facility] Comment on above: Diabetes Start: 04-06-2025 End: 04-06-2025 ambulatory MITANER STALL [facility] Start: 04-06-2025 End: 04-06-2025 Office outpatient visit 25 minutes Gunner Stall PA-C Work Phone: [facility] Comment on above: Type 2 [...] 03-27-2025 End: 05-23-2025 Telephone encounter Lisa Lopes PRODUCT DISTRIBUTION SPECIALIST - ARCHITECTURAL DRAFTSPERSON Work Phone: [facility] Comment on above: Missed Appointment ( Reschedule ); Diabetes (BGL) Start: 02-27-2025 End: 02-28-2025 Telephone encounter Lisa Lopes PRODUCT DISTRIBUTION SPECIALIST - ARCHITECTURAL DRAFTSPERSON Work Phone: [facility] Comment on above: Diabetes (BGL) Start: 02-26-2025 End: 02-26-2025 ambulatory Jared Linnchad LEON [facility] Work Phone: Start: 02-26-2025 End: 02-26-2025 Departed Referred Jared Guzman [facility] [employer] [facility] Start: 02-26-2025 Registered Referred Jared Guzman [facility] [employer] Start: 02-26-2025 End: 02-26-2025 ambulatory Jared Linnchad LEON Facility:[facility] Start: 02-15-2025 End: 02-16-2025 Telephone encounter Margo Guerrero PRODUCT DISTRIBUTION SPECIALIST - ARCHITECTURAL DRAFTSPERSON Work Phone: [facility] Comment on above: Diabetes (BGL) Start: 02-09-2025 End: 02-09-2025 Subsequent hospital visit by physician Alejandro Mandel APRN - ARCHITECTURAL DRAFTSPERSON Work Phone: [facility] Vascular Lab Comment on above: PAD (peripheral oh ry disease) (HCC) Start: 02-09-2025 End: 02-09-2025 ambulatory ALEJANDRO MANDEL [facility] Start: 02-08-2025 End: 02-08-2025 Telephone encounter Herber Ramos PRODUCT DISTRIBUTION SPECIALIST - ARCHITECTURAL DRAFTSPERSON Work Phone: [facility] [place] Comment on above: Results (CT chest wo IV contrast ) Start: 02-07-2025 End: 02-08-2025 Telephone encounter Margo Guerrero PRODUCT DISTRIBUTION SPECIALIST - ARCHITECTURAL DRAFTSPERSON Work Phone: [facility] Comment on above: Diabetes (BGL) Start: 02-07-2025 End: 02-07-2025 ambulatory Jared Esteveschad LEON [facility] Work Phone: Start: 02-07-2025 End: 02-07-2025 Departed Referred Jared Linnchad [facility] Start: 02-07-2025 End: 02-07-2025 ambulatory Jared LEON Facility:[facility] Start: 02-01-2025 End: 02-01-2025 ambulatory ALEJANDRO MANDEL [facility] Start: 02-01-2025 End: 02-01-2025 Office outpatient new 30 minutes Alejandro Mandel PRODUCT DISTRIBUTION SPECIALIST - ARCHITECTURAL DRAFTSPERSON Work Phone: [facility] Vascular Surgery [facility] Comment on above: PAD (peripheral oh ry disease) (HCC) (Primary Dx); Hx of AKA (above knee amputation), right (HCC); Lymphedema of left leg; Morbid obesity (HCC) Start: 01-29-2025 End: 01-31-2025 Telephone encounter Margo Guerrero PRODUCT DISTRIBUTION SPECIALIST - ARCHITECTURAL DRAFTSPERSON Work Phone: [facility] Comment on above: Diabetes (BGL) Start: 01-15-2025 End: 01-22-2025 Telephone encounter Margo Guerrero PRODUCT DISTRIBUTION SPECIALIST - ARCHITECTURAL DRAFTSPERSON Work Phone: [facility] Comment on above: Diabetes (BGL) Start: 01-01-2025 End: 01-02-2025 Telephone encounter Margo Guerrero PRODUCT DISTRIBUTION SPECIALIST - ARCHITECTURAL DRAFTSPERSON Work Phone: [facility] Comment on above: Other (Lab results/B GL) Start: 01-01-2025 End: 01-01-2025 ambulatory MARGO GUERRERO [facility] Start: 01-01-2025 End: 01-01-2025 Office outpatient visit 25 minutes Margo Guerrero APRN - ARCHITECTURAL DRAFTSPERSON Work Phone: [facility] Comment on above: Type 2 diabetes lee itus with hyperglycemia, with long-term current use of insulin (HCC) (Primary Dx); Type 2 diabetes mellitus with diabetic autonomic neuropathy, with long-term current use of insulin (HCC); Microalbuminuria; Essential hypertension; Mixed hyperlipidemia; Class 3 severe obesity due to excess calories with serious comorbidity and body mass index (BMI) of 45.0 to 49.9 in adult ([facility]) Start: 12-27-2024 End: 12-27-2024 ambulatory Jared Linnchad LEON [facility] Work Phone: Start: 12-27-2024 End: 12-27-2024 Departed Referred Jared Guzman [facility] Start: 12-27-2024 End: 12-27-2024 ambulatory Jared LEON Facility:[facility] Start: 12-21-2024 End: 12-21-2024 Office outpatient new 45 minutes Wanda Honeoyesantiago Sylvester CNP Work Phone: [facility] Gastroenterology [facility] Comment on above: Fecal occult blood t est positive (Primary Dx); History of anemia; Calculus of gallbladder without cholecystitis without obstruction; BMI 50.0-59.9, adult ([facility]) Start: 12-21-2024 End: 12-21-2024 ambulatory [facility] Start: 12-20-2024 End: 12-26-2024 Telephone encounter Margo Guerrero APRN - KRANTHI Work Phone: [facility] Endocrinology [facility] Comment on above: Diabetes (BGL) Start: 12-07-2024 End: 12-07-2024 Office outpatient visit 25 minutes Lilo Rizo MD Work Phone: [facility] General Surgery [facility] Comment on above: Cholecystitis (Prima ry Dx); Morbid obesity (HCC); Class 3 severe obesity with serious comorbidity and body mass index (BMI) of 50.0 to 59.9 in adult, unspecified obesity type (HCC) Start: 12-07-2024 End: 12-07-2024 ambulatory LILO RIZO [facility] Start: 12-05-2024 End: 12-05-2024 ambulatory Jared LEON [facility] Work Phone: Start: 12-05-2024 End: 12-05-2024 Departed Referred Jared Esteveschad [facility] Start: 12-05-2024 Registered Referred Jared Estevesdomo - [place] [facility] Start: 12-05-2024 End: 12-05-2024 ambulatory Jared LEON Facility:[facility] Start: 11-30-2024 End: 12-01-2024 ambulatory JARED GUZMAN [facility] Start: 11-30-2024 Registered Referred Jared Guzman [facility] [place] [employer] [facility] Start: 11-22-2024 End: 11-22-2024 Telephone encounter Margo Guerrero APRN - ARCHITECTURAL DRAFTSPERSON Work Phone: [facility] Start: 11-21-2024 End: 11-29-2024 Telephone encounter Margo Guerrero APRN - ARCHITECTURAL DRAFTSPERSON Work Phone: [facility] Comment on above: Diabetes (BGL) Start: 11-15-2024 End: 11-20-2024 Telephone encounter Margo Guerrero APRN - ARCHITECTURAL DRAFTSPERSON Work Phone: [facility] Comment on above: Diabetes (BGL) Start: 11-14-2024 End: 11-14-2024 Office outpatient visit 10 minutes Asuncion Valencia APRN - ARCHITECTURAL DRAFTSPERSON Work Phone: [facility] Surgery [facility] Comment on above: Cholecystitis (Prima ry Dx) Start: 11-14-2024 End: 11-14-2024 ambulatory ASUNCION VALENCIA [facility] Start: 11-13-2024 End: 11-14-2024 Telephone encounter Josie Powell RN [facility] Lung No jeremias Camara [facility] Comment on above: Care Coordination (E D Nuance Lung Nodule ) Start: 11-12-2024 End: 11-13-2024 Emergency department patient visit Virgil Mederos MD Work Phone: [facility] ED Comment on above: History of cholecyst itis (Primary Dx) Start: 11-10-2024 End: 11-10-2024 ambulatory ASUNCION VALENCIA [facility] Start: 11-10-2024 End: 11-10-2024 Office outpatient visit 15 minutes Asuncion Valencia PRODUCT DISTRIBUTION SPECIALIST - ARCHITECTURAL DRAFTSPERSON Work Phone: [facility] Comment on above: Cholecystitis (Prima ry Dx) Start: 11-10-2024 End: 11-10-2024 Departed Referred Jared MUNOZ Start: 11-10-2024 End: 11-10-2024 ambulatory Jared LEON Facility:[facility] Start: 10-30-2024 End: 10-30-2024 Telephone encounter Анна Mcmahon PRODUCT DISTRIBUTION SPECIALIST - ARCHITECTURAL DRAFTSPERSON Work Phone: [facility] Comment on above: Diabetes (BGL) Start: 10-30-2024 End: 10-30-2024 Departed Referred Jared MUNOZ Start: 10-30-2024 End: 10-30-2024 ambulatory Jared LEON Facility:[facility] Start: 10-24-2024 End: 10-24-2024 Emergency department patient visit Vicente Mixon MD Work Phone: [facility] ED Comment on above: Hypoglycemic episode in patient with diabetes mellitus (HCC) (Primary Dx) Start: 10-19-2024 End: 10-20-2024 Telephone encounter Lisa Lopes PRODUCT DISTRIBUTION SPECIALIST - ARCHITECTURAL DRAFTSPERSON Work Phone: [facility] Start: 10-18-2024 End: 10-23-2024 Evaluation and management of inpatient Dontrell Woodall Work Phone: [facility] Medical Surgical Unit MSU 4S Comment on above: Acute cholecystitis (Primary Dx) Start: 09-22-2024 End: 09-22-2024 Departed Referred Jared Guzman [facility] Start: 09-22-2024 End: 09-22-2024 ambulatory Jared LEON Facility:[facility] Start: 09-19-2024 End: 09-20-2024 Telephone encounter Geronimo Lee MD Work Phone: [facility] Comment on above: Diabetes (BGL) Start: 09-11-2024 End: 09-12-2024 Telephone encounter Geronimo Lee MD Work Phone: [facility] Comment on above: Diabetes (BGL) Start: 08-08-2024 End: 08-09-2024 Telephone encounter Geronimo Lee MD Work Phone: [facility] Comment on above: Diabetes (BGL) Start: 08-03-2024 End: 08-08-2024 Telephone encounter Geronimo Lee MD Work Phone: [facility] Comment on above: Diabetes (BGL) Start: 07-17-2024 End: 07-18-2024 Telephone encounter Geronimo Lee MD Work Phone: [facility] Comment on above: Diabetes (BGL) Start: 05-02-2024 End: 05-02-2024 Telephone encounter Ryan Wyatt MA [facility] Endocrinology Start: 02-22-2024 Telephone encounter Geronimo ryan MD Work Phone: [facility] Endocrinology Comment on above: Diabetes (BGL) Start: 02-11-2024 End: 05-12-2024 Transcribe Orders Herber Ramos PRODUCT DISTRIBUTION SPECIALIST - ARCHITECTURAL DRAFTSPERSON Work Phone: [facility] Central Scheduling Comment on above: Solitary pulmonary n odule (Primary Dx) Start: 02-11-2024 End: 02-11-2024 Office outpatient visit 15 minutes Herber Ramos PRODUCT DISTRIBUTION SPECIALIST - ARCHITECTURAL DRAFTSPERSON Work Phone: [facility] Pulmonary Care Comment on above: Lung nodule (Primary Dx); JOHN (obstructive sleep apnea); Morbid obesity with BMI of 45.0-49.9, adult (HCC) Start: 01-27-2024 End: 01-28-2024 Emergency department patient visit Fermin Melchor DO Work Phone: [facility] EMERGENCY DEPT Comment on above: Hypoglycemia (Primar y Dx) Start: 01-26-2024 End: 01-27-2024 Emergency department patient visit Art Zeng DO Work Phone: [facility] EM[facility]GENCY [facility]PT Comment on above: Hypoglycemia (Primar y Dx) Start: 01-22-2024 End: 01-22-2024 Emergency department patient visit Jaquan Morris DO Work Phone: [facility] ED Comment on above: Nausea and vomiting, unspecified vomiting type (Primary Dx); Cystitis Start: 01-20-2024 Telephone encounter Geronimo ryan MD Work Phone: [facility] Clinical Communication Comment on above: Appointment Start: 01-20-2024 End: 01-20-2024 ambulatory [facility] Work Phone: Start: 01-20-2024 End: 01-20-2024 Departed Referred [facility] [employer] Start: 01-20-2024 Registered Referred [facility] [employer] Start: 01-19-2024 Telephone encounter Geronimo ryan MD Work Phone: [facility] Endocrinology Comment on above: Diabetes (BGL) Start: 01-17-2024 End: 01-17-2024 ambulatory [facility] Work Phone: Start: 01-17-2024 End: 01-17-2024 Departed Referred [facility] [employer] Start: 01-17-2024 Registered Referred [facility] [employer] Start: 01-13-2024 End: 01-13-2024 ambulatory [facility] Work Phone: Start: 01-13-2024 End: 01-13-2024 Departed Referred [facility] [employer] Start: 01-13-2024 Registered Referred [facility] [employer] Start: 01-03-2024 Telephone encounter Josie Dean [facility] Pulmonary and Sleep Medicine Comment on above: Care Coordination (E D [facility] Lung Nodule ) Start: 12-31-2023 End: 12-31-2023 ambulatory [facility] Work Phone: Start: 12-31-2023 End: 12-31-2023 Departed Referred [facility] Start: 12-30-2023 End: 12-30-2023 ambulatory [facility] Work Phone: Start: 12-30-2023 End: 12-30-2023 Departed Referred [facility] Start: 12-30-2023 Registered Referred [facility] Start: 12-28-2023 End: 12-29-2023 Emergency department patient visit Edwin Bustos MD Work Phone: [facility] EMERGENCY DEPT Comment on above: Nausea and vomiting, unspecified vomiting type (Primary Dx) Start: 12-28-2023 Telephone encounter Geronimo ryan MD Work Phone: [facility] Endocrinology Comment on above: Diabetes (BGL) Start: 12-23-2023 End: 12-23-2023 Subsequent hospital visit by physician Elda Reaves (Pa) Work Phone: [facility] Nuclear Medicine Comment on above: Nausea with vomiting , unspecified Start: 12-22-2023 End: 12-22-2023 ambulatory [facility] Work Phone: Start: 12-22-2023 End: 12-22-2023 [facility] Start: 12-22-2023 [facility] Start: 12-13-2023 ambulatory Leonela Calix RN [facility] Clinical Communication Start: 12-13-2023 Patient encounter procedure Leonela Calix RN [facility] Clinical Communication Start: 12-09-2023 End: 12-09-2023 Emergency department patient visit Caridad Evans MD Work Phone: [facility] ED Comment on above: Nausea vomiting and diarrhea (Primary Dx); Dehydration Start: 12-06-2023 Telephone encounter Geronimo ryan MD Work Phone: [facility] Endocrinology Comment on above: Diabetes (BGL) Start: 11-24-2023 Transcribe Monique Reaves (Pa) Work Phone: [facility] Central Scheduling Comment on above: Nausea with vomiting , unspecified (Primary Dx) Start: 11-23-2023 Telephone encounter Geronimo ryan MD Work Phone: [facility] Endocrinology Comment on above: Diabetes (BGL) Start: 11-23-2023 End: 11-23-2023 ambulatory [facility] Work Phone: Start: 11-23-2023 End: 11-23-2023 Departed Referred [facility] Start: 11-18-2023 End: 11-18-2023 [facility] Work Phone: Start: 11-18-2023 End: 11-18-2023 Departed Referred [facility] Start: 11-18-2023 Registered Referred [facility] Start: 11-17-2023 End: 11-17-2023 ambulatory [facility] Facility:[facility] Start: 11-09-2023 Telephone encounter Geronimo ryan MD Work Phone: [facility] Endocrinology Comment on above: Advice Only Start: 10-27-2023 End: 10-27-2023 Office outpatient visit 25 minutes Geronimo Lee MD Work Phone: [facility] Endocrinology Comment on above: Type 2 diabetes lee itus with hyperglycemia, with long-term current use of insulin (HCC) (Primary Dx); Mixed hyperlipidemia; Primary hypertension Start: 10-26-2023 End: 10-26-2023 [facility] Work Phone: Start: 10-26-2023 End: 10-26-2023 Departed Referred [facility] Start: 10-07-2023 End: 10-07-2023 Subsequent hospital visit by physician [facility] Exam Room [address] [facility] Comment on above: Arrived Start: 10-07-2023 End: 10-17-2023 Evaluation and management of inpatient Rosaura Mustafa DO Work Phone: [facility] Cardiac Post Intervention Progressive Care Unit [facility] PCU 4W Start: 09-20-2023 Telephone encounter Geronimo ryan MD Work Phone: [facility] Endocrinology Comment on above: Diabetes (BGL) Start: 09-20-2023 End: 09-20-2023 Departed Referred [facility] Start: 08-30-2023 Telephone encounter Geronimo ryan MD Work Phone: [facility] Endocrinology Comment on above: Diabetes (BGL) Start: 08-17-2023 End: 08-19-2023 Emergency department patient visit Aaron Burgos DO Work Phone: [facility] Medical Surgical Unit MSU 1E Comment on above: Upper abdominal pain (Primary Dx); Hypoglycemia Start: 08-17-2023 End: 08-17-2023 ambulatory [facility] Work Phone: Start: 08-17-2023 End: 08-17-2023 Departed Referred [facility] Start: 08-11-2023 Telephone encounter Geronimo ryan MD Work Phone: [facility] Endocrinology Comment on above: Diabetes (BGL) Start: 08-08-2023 End: 08-08-2023 Emergency department patient visit Gayle Trevizo MD Work Phone: [facility] ED Comment on above: Pyelonephritis (Prim valeria Dx); Upper abdominal pain; Nausea Start: 08-04-2023 End: 08-04-2023 ambulatory [facility] Work Phone: Start: 08-04-2023 End: 08-04-2023 Departed Referred [facility] Start: 08-02-2023 End: 08-02-2023 Departed Referred [facility] Start: 08-02-2023 Registered Referred [facility] Start: 07-05-2023 Telephone encounter Geronimo ryan MD Work Phone: [facility] Endocrinology Comment on above: Care Coordination (E D Nuance Lung Nodule ) Care Coordination (E D Nuance Lung Nodule/Resp consult for lung nodule) Start: 07-05-2023 End: 07-05-2023 ambulatory [facility] Work Phone: Start: 07-05-2023 End: 07-05-2023 Departed Referred [facility] Start: 06-29-2023 End: 06-29-2023 Evaluation and management of inpatient Art Palmer MD Work Phone: [facility] Start: 06-28-2023 End: 07-01-2023 Emergency department patient visit Rosaura Mustafa DO Work Phone: [facility] 2E TELEMETRY Comment on above: Chest pain, unspecif ied type (Primary Dx) Start: 06-22-2023 Telephone encounter Geronimo ryan MD Work Phone: [facility] Endocrinology Comment on above: Diabetes (BGL) Start: 05-31-2023 End: 05-31-2023 Departed Referred [facility] Start: 05-31-2023 Registered Referred [facility] Start: 05-17-2023 Telephone encounter Geronimo ryan MD Work Phone: [facility] Endocrinology Comment on above: Diabetes (BGL) Start: 05-05-2023 Telephone encounter Geronimo ryan MD Work Phone: [facility] Endocrinology Comment on above: Diabetes (BGL) Start: 04-19-2023 End: 04-19-2023 ambulatory [facility] Work Phone: Start: 04-19-2023 End: 04-19-2023 Departed Referred [facility] Start: 03-30-2023 End: 03-30-2023 ambulatory [facility] Work Phone: Start: 03-30-2023 End: 03-30-2023 Departed Referred [facility] [employer] [facility] Start: 03-15-2023 End: 03-15-2023 Departed Referred [facility] Start: 03-08-2023 End: 03-08-2023 Emergency department patient visit Karlos Osborn DO Work Phone: [facility] ED Comment on above: Abdominal pain, gene ralized (Primary Dx); Gastroparesis Start: 02-25-2023 Telephone encounter Geronimo ryan MD Work Phone: [facility] Endocrinology Comment on above: Diabetes (BGL) Start: 02-09-2023 End: 02-09-2023 Office outpatient visit 25 minutes Geronimo Lee MD Work Phone: [facility] Endocrinology Comment on above: Type 2 diabetes lee itus with hyperglycemia, with long-term current use of insulin (CMS/HCC) (HCC) (Primary Dx); Mixed hyperlipidemia; Primary hypertension Start: 01-26-2023 Transcribe Orders Jared moyer Work Phone: [facility] Physician Referral Service Start: 01-13-2023 End: 01-13-2023 ambulatory [facility] Work Phone: Start: 01-13-2023 End: 01-13-2023 Departed Referred [facility] Start: 12-02-2022 End: 12-02-2022 ambulatory [facility] Work Phone: Start: 12-02-2022 End: 12-02-2022 Departed Referred [facility] [employer] [facility] Start: 10-27-2022 End: 10-27-2022 ambulatory [facility] Work Phone: Start: 10-27-2022 End: 10-27-2022 Departed Referred [facility] [employer] Start: 06-24-2022 End: 06-24-2022 ambulatory [facility] Work Phone: Start: 06-24-2022 End: 06-24-2022 Departed Referred [facility] [employer] Start: 05-25-2022 End: 05-25-2022 Departed Referred [facility] [employer] Start: 04-27-2022 End: 04-27-2022 Departed Referred [facility] [employer] Start: 04-13-2022 End: 04-13-2022 Departed Referred [facility] [employer] Start: 04-13-2022 Registered Referred [facility] [employer] Start: 03-02-2022 End: 03-02-2022 Departed Referred [facility] [employer] Start: 01-29-2022 End: 01-29-2022 Departed Referred [facility] [employer] Start: 01-29-2022 Registered Referred [facility] [employer] Start: 01-19-2022 End: 01-19-2022 Departed Referred [facility] [employer] Start: 01-19-2022 Registered Referred [facility] [employer] Start: 12-08-2020 End: 12-08-2020 Emergency department patient visit Art Zneg Work Phone: [facility] Comment on above: Bacterial urinary in fection (Primary Dx); Non-intractable vomiting with nausea, unspecified vomiting type; Abdominal pain, unspecified abdominal location Start: 11-22-2020 End: 11-28-2020 Evaluation and management of inpatient Joel Olvin Nelson Work Phone: [facility] 7E Oncology Comment on above: Hypoglycemia (Primar y Dx); Nausea Start: 09-17-2020 End: 09-30-2020 Evaluation and management of inpatient Art Zeng Work Phone: [facility] 2E TELEMETRY Comment on above: Ileus (HCC) (Primary Dx); Nausea and vomiting, intractability of vomiting not specified, unspecified vomiting type; Generalized abdominal pain Start: 01-02-2020 End: 01-02-2020 Subsequent hospital visit by physician Justin Walsh Work Phone: [facility] Pre-Admit [facility] Comment on above: Arrived Start: 06-26-2019 End: 06-27-2019 Emergency department patient visit Davie Blank Work Phone: [facility] Comment on above: Amputation stump inf ection (HCC) (Primary Dx) Start: 06-14-2019 End: 06-20-2019 Evaluation and management of inpatient Dom Ortiz Work Phone: [facility] H6 TELEMETRY Comment on above: Diabetic foot infect ion ([facility]) (Primary Dx); Lactic acidosis; Morbid obesity ([facility]) Start: 01-03-2019 End: 01-03-2019 Patient encounter procedure [facility] Start: 12-27-2018 End: 12-27-2018 Patient encounter procedure [facility] Start: 07-12-2018 End: 07-12-2018 Patient encounter procedure [facility] Start: 06-28-2018 End: 06-28-2018 Patient encounter procedure [facility] Start: 06-14-2018 End: 06-14-2018 Patient encounter procedure [facility] Start: 05-04-2018 Ambulatory [facility] ty:[facility] Start: 04-28-2018 End: 05-06-2018 Evaluation and management of inpatient [facility] Start: 03-18-2018 Ambulatory [facility] ty:[facility] Start: 03-15-2018 End: 03-21-2018 Evaluation and management of inpatient [facility] Start: 02-02-2018 End: 02-08-2018 Evaluation and management of inpatient [facility] Procedures Date Procedure Procedure Detail Performing [...] Work Phone: Start: 07-10-2025 Comprehensive metabolic panel [employer] er PA-C Work Phone: Start: 07-10-2025 Ecg routine ecg w/least 12 lds trcg only w/o i&r Toi Douglas PA-C Work Phone: Start: 06-07-2025 Colonoscopy Farhad Chavez MD Work Phone: Start: 04-06-2025 Hemoglobin glycosylated a1c Kaushal Avtodoria PA-[employer] Work Phone: Start: 04-06-2025 Follow-up visit JARED GUZMAN Start: 02-26-2025 Serum inorganic phosphate measurement Jared LEON Start: 02-09-2025 Non-invasive physiologic study extremity 3 niki Mandel PRODUCT DISTRIBUTION SPECIALIST - ARCHITECTURAL DRAFTSPERSON Work Phone: Start: 02-01-2025 Follow-up visit JARED GUZMAN Start: 01-01-2025 Follow-up visit JARED GUZMAN Start: 12-27-2024 Measurement of renal function Jared LEON Comment on above: GFR Calc Start: 12-21-2024 Follow-up visit JARED GUZMAN Start: 12-07-2024 Follow-up visit JARED GUZMAN Start: 11-14-2024 Follow-up visit JARED GUZMAN Start: 11-12-2024 Basic metabolic panel calcium total Ramsey Apodaca PRODUCT DISTRIBUTION SPECIALIST - ARCHITECTURAL DRAFTSPERSON Work Phone: Start: 11-12-2024 Ct abdomen & pelvis w/o contrast material Ramsey Apodaca PRODUCT DISTRIBUTION SPECIALIST - ARCHITECTURAL DRAFTSPERSON Work Phone: Start: 11-10-2024 Urine culture Jared [...] 10-09-2023 Drug screen quantitative vancomycin Rachael Robertson PRODUCT DISTRIBUTION SPECIALIST - ARCHITECTURAL DRAFTSPERSON Work Phone: Start: 10-09-2023 End: 10-09-2023 Hemoglobin [...] abdomen & pelvis w/contrast material Rachael Robertson PRODUCT DISTRIBUTION SPECIALIST - ARCHITECTURAL DRAFTSPERSON Work Phone: Start: 10-08-2023 Glucose quantitative blood xcpt reagent strip Mayda Olmstead MD Work Phone: Start: 10-08-2023 Basic metabolic panel calcium total Rachael Robertson PRODUCT DISTRIBUTION SPECIALIST - [facility] Work Phone: Start: 10-07-2023 Glucose quantitative blood xcpt reagent strip Ricardo Spring MD Work Phone: Start: 10-07-2023 Procalcitonin (pct) Rachael Robertson PRODUCT DISTRIBUTION SPECIALIST - [facility] Work Phone: Start: 10-07-2023 Glucose quantitative blood xcpt reagent strip Ricardo [place] MD Work Phone: Start: 10-07-2023 End: 10-07-2023 Glucose quantitative blood xcpt reagent strip Rosaura Mustafa DO Work Phone: Start: 10-07-2023 Culture bacterial quanttative colony count urine Rosaura Mustafa DO Work Phone: Start: 10-07-2023 Drug tst prsmv instrmnt chem analyzers pr date Rachael Robertson PRODUCT DISTRIBUTION SPECIALIST - [facility] Work Phone: Start: 10-07-2023 Urinalysis complete panel [...] test def 1-7 classes Rachael Virgil son PRODUCT DISTRIBUTION SPECIALIST - ARCHITECTURAL DRAFTSPERSON Work Phone: Start: 08-19-2023 Glucose quantitative blood [...] dev cleared fda spec home use Art [employer] Work Phone: Start: 09-20-2020 Radiologic exam abdomen [...] cleared fda spec home use Art Escobar [employer] Work Phone: Start: 09-19-2020 [facility] ENDOSCOPY REPORT [...] Phone: Start: 01-02-2020 Blood count hemoglobin Marcella oDdd Work Phone: Start: 06-27-2019 ADD ON LAB [...] dev cleared fda spec home use Jayesh Jordna Work Phone: Start: 06-20-2019 Gluc bld gluc mntr dev cleared fda spec home use Jayesh Jordan Work Phone: Start: 06-20-2019 Blood count complete auto&auto difrntl wbc Jarek [employer] Work Phone: Start: 06-19-2019 Gluc bld gluc mntr dev cleared fda spec home use Jayesh Jordan Work Phone: Start: 06-19-2019 Gluc bld gluc mntr dev cleared fda spec home use Jayesh Jordan Work Phone: Start: 06-19-2019 Gluc bld gluc mntr dev cleared fda spec home use Jayesh Jordan Work Phone: Start: 06-19-2019 Blood count complete auto&auto difrntl wbc Jarek [employer] Work Phone: Start: 06-19-2019 Procalcitonin (pct) Jarek Omnireliant Work Phone: Start: 06-18-2019 Gluc bld gluc [...] cleared fda spec home use Jayesh Gilliam [employer] Work Phone: Start: 06-14-2019 Chest x-ray 1 [...] for Adults (1 - 1-dose 75+ series) [facility] Start: 06-07-2035 Screening for malignant neoplasm of colon [facility] Start: 2026 RSV Immunization aged 60 or older (1 - 1-dose 60+ series) RSV Immunization aged 60 or older (1 - 1-dose 60+ series) [facility] Start: 2026 [facility] Start: 07-10-2026 Diabetes: Estimated Glomerular Filtration Rate for [facility] Diabetes: Estimated Glomerular Filtration Rate for [facility] Start: 04-19-2026 Glaucoma screening Diabetes: Retinopathy Screening [facility] Start: 04-06-2026 Hemoglobin A1c measurement Diabetes: Hemoglobin A1C [facility] Start: 03-27-2026 Diabetic foot examination Diabetes: Foot Exam [facility] Start: 01-01-2026 Diabetic foot examination Diabetes: Foot Exam [facility] Start: 12-01-2025 Diabetes: Estimated Glomerular Filtration Rate for [facility] Diabetes: Estimated Glomerular Filtration Rate for [facility] Start: 11-12-2025 Diabetes: Estimated Glomerular Filtration Rate for [facility] Diabetes: Estimated Glomerular Filtration Rate for [facility] Start: 10-24-2025 Diabetes: Estimated Glomerular Filtration Rate for [facility] Diabetes: Estimated Glomerular Filtration Rate for [facility] Start: 10-23-2025 Diabetes: Estimated Glomerular Filtration Rate for [facility] Diabetes: Estimated Glomerular Filtration Rate for [facility] Start: 10-20-2025 Diabetes: Estimated Glomerular Filtration Rate for [facility] Diabetes: Estimated Glomerular Filtration Rate for [facility] Start: 10-19-2025 Hemoglobin A1c measurement Diabetes: Hemoglobin A1C [facility] Start: 10-19-2025 Screening for malignant neoplasm of colon [facility] Start: 08-31-2025 Glaucoma screening Diabetes: Retinopathy Screening [facility] Start: 08-16-2025 End: 08-16-2025 Patient encounter procedure 08/16/2025 3:30 PM EDT Office Visit [facility] [address] [place] [address] Dany Woodruff APRN - ENGINEER EXHAUSTER [address] [facility] [address] [place] [address] [facility] Start: 08-07-2025 End: 08-07-2025 Patient encounter procedure 08/07/2025 3:30 PM EDT Office Visit [facility] [address] [place] [phone] Kaushal Schultz PA-C [address] [place] [address] [facility] Start: 07-26-2025 End: 07-26-2025 Patient encounter procedure 07/26/2025 11:00 AM EDT Office Visit [facility] [address] [place] [address] Dany Woodruff APRN - ENGINEER EXHAUSTER [address] [address] [facility] Start: 07-09-2025 COVID-19 Vaccine ( season) COVID-19 Vaccine ( season) [facility] Start: 07-09-2025 Influenza vaccination [facility] Start: 07-07-2025 End: 04-06-2026 Comprehensive metabolic 1998 panel - Serum or Plasma Comprehensive metabolic panel Lab Routine Type 2 diabetes mellitus with hyperglycemia, with long-term current use of insulin (HCC) Microalbuminuria Expected: 07/07/2025 (Approximate), Expires: 04/06/2026 [facility] Work Phone: Comment on above: Expected: 07/07/2025 (Approximate), Expi res: 04/06/2026 Start: 07-07-2025 End: 04-06-2026 Lipid 1996 panel - Serum or Plasma Lipid panel Lab Routine Mixed diabetic hyperlipidemia associated with type 2 diabetes mellitus (HCC) Expected: 07/07/2025 (Approximate), Expires: 04/06/2026 [facility] Comment on above: Expected: 07/07/2025 (Approximate), Expi res: 04/06/2026 Start: 07-07-2025 End: 04-06-2026 Microalbumin/Creatinine panel in random Urine Microalbumin / creatinine urine ratio Lab Routine Type 2 diabetes mellitus with hyperglycemia, with long-term current use of insulin (HCC) Microalbuminuria Expected: 07/07/2025 (Approximate), Expires: 04/06/2026 [facility] Comment on above: Expected: 07/07/2025 (Approximate), Expi res: 04/06/2026 Start: 06-22-2025 Glaucoma screening [facility] Start: 06-07-2025 End: 06-07-2025 Admission to same day surgery center 06/07/2025 11:00 AM EDT - 06/07/2025 12:00 PM EDT Surgery [facility] [address] [place] [address] Farhad Chavez MD [address] [place], [place] [id number] COLONOSCOPY [70355 (CPT )] [facility] Endoscopy Comment on above: COLONOSCOPY [18506 (CPT )] Start: 06-07-2025 End: 06-07-2025 Colonoscopy flx dx w/collj spec when pfrmd [facility] Gastroenterology Start: 06-07-2025 End: 06-07-2025 Esophagogastroduodenoscopy transoral diagnostic [facility] Gastroenterology Start: 06-07-2025 Subsequent hospital visit by physician 06/07/2025 11:00 AM EDT Hospital Encounter [facility] [address] [place] [address] Farhad Chavez MD [address] [place], [place] [id number] [facility] Start: 03-27-2025 End: 03-27-2025 Patient encounter procedure 03/27/2025 9:00 AM EDT Office Visit [facility] [address] [facility] [address] [place] [phone] Lisa Lopes PRODUCT DISTRIBUTION SPECIALIST - ARCHITECTURAL DRAFTSPERSON [address] [place] [address] [facility] Start: 03-02-2025 End: 03-02-2025 Patient encounter procedure 03/02/2025 11:20 AM EDT Office Visit [facility] Lung Nodule [facility] [address] [place] [address] Herber Ramos APRN - ARCHITECTURAL DRAFTSPERSON [address] [place] [address] [facility] Lung Nodule [facility] Start: 02-14-2025 Glaucoma screening Diabetes: Retinopathy Screening [facility] Start: 02-09-2025 End: 02-09-2025 Patient encounter procedure 02/09/2025 2:20 PM EDT Appointment [facility] Vascular Lab [address] [place] [address] Alejandro Mandel PRODUCT DISTRIBUTION SPECIALIST - ARCHITECTURAL DRAFTSPERSON [address] [facility] [address] [place] [phone] [facility] Vascular Lab Start: 02-06-2025 End: 02-10-2025 CT Chest WO contrast CT chest wo IV contrast Imaging Routine Lung nodule Expected: 02/06/2025, Expires: 02/10/2025 [facility] Work Phone: Comment on above: Expected: 02/06/2025, Expires: Start: 02-06-2025 End: 02-06-2025 Patient encounter procedure [facility] CT Start: 02-06-2025 End: 02-06-2025 Patient encounter procedure 02/06/2025 7:30 AM EDT Appointment [facility] Imaging [address] [place] [phone] Herber Ramos, PRODUCT DISTRIBUTION SPECIALIST - ARCHITECTURAL DRAFTSPERSON [address] [place] [address] [facility] CT Imaging Start: 02-01-2025 End: 02-01-2025 Patient encounter procedure 02/01/2025 9:30 AM EDT Office Visit [facility] Vascular Surgery [facility] [address] [place] [phone] Alejandro Mandel PRODUCT DISTRIBUTION SPECIALIST - ARCHITECTURAL DRAFTSPERSON [address] [place] [phone] [facility] Vascular Surgery [facility] Start: 01-21-2025 Diabetes: Estimated Glomerular Filtration Rate for Kidney [facility] Diabetes: Estimated Glomerular Filtration Rate for [facility] Start: 01-01-2025 End: 01-01-2026 Lipid 1996 panel - Serum or Plasma Lipid panel Lab Routine Mixed hyperlipidemia Expected: 01/01/2025 (Approximate), Expires: 01/01/2026 [facility] Work Phone: Comment on above: Expected: 01/01/2025 (Approximate), Expi res: 01/01/2026 Start: 01-01-2025 End: 01-01-2026 Microalbumin/Creatinine panel in random Urine Microalbumin / creatinine urine ratio Lab Routine Type 2 diabetes mellitus with hyperglycemia, with long-term current use of insulin (HCC) Expected: 01/01/2025 (Approximate), Expires: 01/01/2026 [facility] Comment on above: Expected: 01/01/2025 (Approximate), Expi res: 01/01/2026 Start: 01-01-2025 End: 01-01-2025 Patient encounter procedure 01/01/2025 11:00 AM EST Office Visit [facility] [address] [facility] [address] [place] [phone] Margo Guerrero, PRODUCT DISTRIBUTION SPECIALIST - ARCHITECTURAL DRAFTSPERSON [address] [place] [address] [facility] Start: 12-31-2024 Hemoglobin A1c measurement Diabetes: Hemoglobin A1C [facility] Start: 12-21-2024 End: 12-21-2024 Patient encounter procedure 12/21/2024 8:30 AM EST Office Visit [facility] Gastroenterology - [place] [address] [place] [phone] Wanda Johnson APRN - ARCHITECTURAL DRAFTSPERSON [address] [facility] [address] [place] [address] [facility] Gastroenterology [facility] Start: 12-10-2024 Glaucoma screening Diabetes: Retinopathy Screening [facility] Start: 12-07-2024 End: 12-07-2024 Patient encounter procedure 12/07/2024 1:00 PM EST Office Visit [facility] [address] [facility] [address] [place] [phone] Lilo Rizo MD [address] [place] [address] [address] [place], [place] [phone] [facility] Start: 11-27-2024 End: 11-27-[address] [facility] Start: 11-24-2024 End: 11-10-2025 RF Guidance for percutaneous drainage and placement of drainage catheter of Biliary ducts IR biliary drain check Imaging Routine Cholecystitis Expected: 11/24/2024, Expires: 11/10/2025 [facility] Work Phone: Comment on above: Expected: 11/24/2024, Expires: Start: 11-14-2024 End: 11-14-2024 Patient encounter procedure 11/14/2024 10:15 AM EST Office Visit [facility] [address] [facility] [address] [place] [address] Asuncion Valencia APRN - ARCHITECTURAL DRAFTSPERSON [address] [facility] [address] [place] [address] [facility] Start: 11-08-2024 Medicare Advantage Annual Wellness Visit Medicare Advantage Annual Wellness Visit [facility] Start: 10-09-2024 Hemoglobin A1c measurement [facility] Start: 07-09-2024 COVID-19 Vaccine ( season) COVID-19 Vaccine () [facility] Start: 07-09-2024 COVID-19 Vaccine () COVID-19 Vaccine () [facility] Start: 07-09-2024 Influenza vaccination [facility] Start: 06-22-2024 Glaucoma screening Diabetes: Retinopathy Screening [facility] Start: 03-14-2024 End: 03-14-2024 Patient encounter procedure 03/14/2024 2:30 PM EDT Office Visit [facility] Endocrinology [address] [place] [address] Carito Thacker PRODUCT DISTRIBUTION SPECIALIST - ARCHITECTURAL DRAFTSPERSON [address] [place] [address] [facility] Endocrinology Start: 02-11-2024 End: 02-10-2025 CT Chest WO contrast CT chest wo IV contrast Imaging Routine Solitary pulmonary nodule Expected: 02/11/2024, Expires: 02/10/2025 [facility] Work Phone: Comment on above: Expected: 02/11/2024, Expires: Start: 02-11-2024 End: 02-11-2024 Patient encounter procedure [facility] Start: 02-10-2024 Hemoglobin A1c measurement Diabetes: Hemoglobin A1C [facility] Start: 02-10-2024 Lipid panel [facility] Start: 01-06-2024 End: 01-06-2024 Patient encounter procedure 01/06/2024 11:30 AM EST Appointment [facility] CT Imaging [address] [facility] [address] Herber Ramos PRODUCT DISTRIBUTION SPECIALIST - ARCHITECTURAL DRAFTSPERSON [address] [address] [facility] CT Imaging Start: 12-31-2023 End: 12-31-2023 ambulatory [facility] Start: 12-31-2023 End: 12-31-2023 Patient encounter procedure 12/31/2023 9:40 AM EST Office Visit [facility] Pulmonary Care [address] [place] [phone] Herber Ramos APRN - ARCHITECTURAL DRAFTSPERSON [address] [place] [address] [facility] Start: 12-23-2023 End: 12-23-2023 Patient encounter procedure 12/23/2023 9:00 AM EST Appointment [facility] Nuclear Medicine [address] [place] [address] [facility] Nuclear Medicine Start: 12-20-2023 End: 12-20-2023 ambulatory [facility] CT Imaging Start: 12-20-2023 End: 12-20-2023 Patient encounter procedure 12/20/2023 10:30 AM EST Appointment SB CT Imaging [address] [place] [address] Herber Ramos, JEREMY - ARCHITECTURAL DRAFTSPERSON [address] [place] [address] [facility] CT Imaging Start: 11-08-2023 Medicare Advantage Annual Wellness Visit Medicare Advantage Annual Wellness Visit [facility] Start: 10-27-2023 End: 10-27-2023 ambulatory [facility] Endocrinology Start: 10-27-2023 End: 10-27-2023 Patient encounter procedure 10/27/2023 2:00 PM EST Office Visit [facility] Endocrinology [address] [place] [address] Geronimo Lee MD [address] [place] [address] [facility] Endocrinology Start: 10-27-2023 End: 10-27-2023 Telemedicine consultation with patient 10/27/2023 2:00 PM EST Telemedicine [facility] Endocrinology [address] [place] [address] Geronimo Lee MD [address] [place] [address] [facility] Endocrinology Start: 09-17-2023 End: 09-17-2023 Patient encounter procedure 09/17/2023 Office Visit Endocrinology Geronimo Lee MD [address] [facility] [place] [address] [facility] Endocrinology Start: 09-17-2023 End: 09-17-2023 Patient encounter procedure 09/17/2023 9:10 AM EST Office Visit [facility] Care [address] [place] [address] Herber Ramos, PRODUCT DISTRIBUTION SPECIALIST - ARCHITECTURAL DRAFTSPERSON [address] [place] [address] [facility] Start: 08-13-2023 End: 08-13-2023 Patient encounter procedure 08/13/2023 11:40 AM EDT Office Visit [facility] [address] [place] [address] Herber Ramos, PRODUCT DISTRIBUTION SPECIALIST - ARCHITECTURAL DRAFTSPERSON [address] [place] [address] [facility] Start: 07-30-2023 End: 07-30-2023 Patient encounter procedure 07/30/2023 9:10 AM EDT Office Visit [facility] [address] [place] [address] Herber Ramos, PRODUCT DISTRIBUTION SPECIALIST - ARCHITECTURAL DRAFTSPERSON [address] [place] [address] [facility] Start: 07-09-2023 COVID-19 Vaccine ( season) COVID-19 Vaccine ( season) [facility] Start: 07-09-2023 Influenza vaccination [facility] Start: 07-09-2023 [facility] Start: 06-29-2023 End: 06-29-2023 Esophagogastroduodenoscopy transoral diagnostic EGD DIAGNOSTIC Nausea and vomiting, unspecified vomiting type 06/29/2023 9:54 AM EDT [facility] Gastroenterology Start: 05-11-2023 Hemoglobin A1c measurement Diabetes: Hemoglobin A1C [facility] Start: 10-19-2022 Hemoglobin A1c measurement Diabetes: Hemoglobin A1C [facility] Start: 08-08-2022 Influenza vaccination Influenza Vaccine (#1) [facility] Start: 04-23-2022 COVID-19 Vaccine (4 - Booster for Pfizer series) COVID-19 Vaccine (4 - Booster for Pfizer series) [facility] Start: 04-23-2022 COVID-19 Vaccine (4 - Pfizer series) COVID-19 Vaccine (4 - Pfizer series) [facility] Start: 12-08-2021 Creatinine measurement Creatinine monitoring [place], [place] Start: 12-08-2021 Potassium monitoring Potassium monitoring [place] Start: 11-28-2021 Creatinine measurement Creatinine monitoring [place] Start: 11-28-2021 Potassium monitoring Potassium monitoring [place] Start: 09-26-2021 Creatinine measurement Creatinine monitoring [place] Start: 09-26-2021 Potassium monitoring Potassium monitoring [place] Start: 08-29-2021 Lipid panel Lipid Panel [facility] Start: 08-23-2021 Lipid panel Lipid screen [place] Start: 02-21-2021 HbA1c (Bld) [Mass fraction] A1C test (Diabetic or Prediabetic) [place], [place] Start: 01-24-2021 End: 01-24-2021 Office Visit 01/24/2021 Office Visit Endocrinology Geronimo Lee MD [address] [place], [place] [phone] Endocrinology [place] Start: 11-23-2020 End: 11-23-2020 HbA1c (Bld) [Mass fraction] [place], [place] Comment on above: One Time for 1 Occurrences starting 11/08 until 11/23/2020 Start: 07-09-2020 Influenza vaccination Flu vaccine (#1) [place] Start: 06-26-2020 Creatinine monitoring Creatinine monitoring [facility] Start: 06-26-2020 [facility] Start: 06-20-2020 Creatinine monitoring Creatinine monitoring [facility] Start: 06-20-2020 Potassium monitoring Potassium monitoring [facility] Start: 01-22-2020 End: 01-22-2020 Office Visit 01/22/2020 Office Visit Gynecologic Oncology Justin Walsh MD [address] [facility] [place] [address] [phone] [facility] [place] CLINICAL COUNSELOR Oncology Start: 01-09-2020 End: 01-09-2020 Appointment 01/09/2020 Appointment General Surgery Justin Walsh MD [address] [facility], [address] [place] [address] [phone] [facility] General Surgery Start: 09-16-2019 A1C test (Diabetic or Prediabetic) A1C test (Diabetic or Prediabetic) [facility] MARYAM Start: 07-17-2019 End: 07-17-2019 Office Visit 07/17/2019 Office Visit Gynecologic Oncology Justin Walsh MD [address] [facility] [place] [address] [phone] [facility] [place] CLINICAL COUNSELOR Oncology Start: 07-13-2019 End: 07-13-2019 Office Visit 07/13/2019 Office Visit Gynecologic Oncology Mignon Bynum PA [address] [facility] [address] [place] [id number] [facility] [place] CLINICAL COUNSELOR Oncology Start: 07-09-2019 Influenza vaccination Flu vaccine (#1) [place], [place] Start: 06-28-2019 End: 06-28-2019 Office Visit 06/28/2019 Office Visit Orthopedic Surgery Sergio Pisano MD [address] [facility] [address] [place] [address] [phone] [facility] Orthopedics and Sports Medicine [place] Start: 06-27-2019 End: 06-27-2019 Hospital Encounter [facility] Comment on above: Canceled (Other) Start: 04-26-2019 Annual Wellness Visit (AWV) Annual Wellness Visit (AWV) [place], [place] Start: 2016 Breast cancer screen Breast cancer screen [place] Start: 2016 Colon cancer screen colonoscopy Colon cancer screen colonoscopy [place] Start: 2016 Screening for malignant neoplasm of breast Breast cancer screen [place] Start: 2016 Screening for malignant neoplasm of colon Colon cancer screen colonoscopy [place] Start: 2016 Shingles (RZV) Vaccine (1 of 2) Shingles (RZV) Vaccine (1 of 2) [facility] Start: 2016 Shingles Vaccine (1 of 2) Shingles Vaccine (1 of 2) [place] Start: 2016 Zoster Vaccines (1 of 2) Zoster Vaccines (1 of 2) [facility] Start: 2016 [facility] Start: 2011 Cholesterol [Mass/volume] in Serum or Plasma Cholesterol [facility] Start: 2011 Screening for malignant neoplasm of colon [facility] Start: 2006 Screening for malignant neoplasm of breast [facility] Start: 1996 Screening for malignant neoplasm of cervix [facility] Start: 1987 Cervical cancer screen Cervical cancer screen [place] Start: 1987 Screening for malignant neoplasm of cervix [facility] Start: 1985 DTaP/Tdap/Td vaccine (1 - Tdap) DTaP/Tdap/Td vaccine (1 - Tdap) [place] Start: 1985 DTaP/Tdap/Td Vaccines (1 - Tdap) DTaP/Tdap/Td Vaccines (1 - Tdap) [facility] Start: 1985 Hepatitis B Vaccine (1 of 3 - Risk 3-dose series) Hepatitis B Vaccine (1 of 3 - Risk 3-dose series) [place] Start: 1985 Hepatitis B Vaccines (1 of 3 - 19+ 3-dose series) Hepatitis B Vaccines (1 of 3 - 19+ 3-dose series) [facility] Start: 1985 Pneumococcal Vaccine: 50+ Years (1 of 2 - PCV) Pneumococcal Vaccine: 50+ Years (1 of 2 - PCV) [facility] Start: 1985 Tetanus vaccination Tetanus (Td or Tdap) Booster [facility] Start: 1985 Urine screening for protein Diabetes: Urine Protein Screening [facility] Start: 1985 [facility] Start: 1984 Diabetes: Urine Albumin-Creatinine Ratio for Kidney Health Diabetes: Urine Albumin-Creatinine Ratio for Kidney Health [facility] Start: 1984 Diabetic microalbuminuria test Diabetic microalbuminuria test [place] Start: 1984 Hepatitis C screening [facility] Start: 1984 Tetanus + diphtheria + acellular pertussis vaccine (product) Tdap Booster [facility] Start: 1981 HIV screen HIV screen [place] Start: 1981 HIV screening [facility] Start: 1978 Depression Monitoring Depression Monitoring [facility] Start: 1978 Depression Screening Depression Screening [facility] Start: 1978 [facility] Start: 1977 DTaP/Tdap/Td vaccine (1 - Tdap) DTaP/Tdap/Td vaccine (1 - Tdap) [place] Start: 1976 [object Object] Diabetic foot exam [place] Start: 1976 Diabetic foot examination [facility] Start: 1976 Diabetic retinal exam Diabetic retinal exam [place], [place] Start: 1976 Glaucoma screening Diabetes: Retinopathy Screening [facility] Start: 1976 Lipid screen Lipid screen [place], [place] Start: 1976 Preventive dental service [facility] Start: 1972 Pneumococcal 0-64 years Vaccine (1 of 1 - PPSV23) Pneumococcal 0-64 years Vaccine (1 of 1 - PPSV23) [place] Start: 1972 Pneumococcal Vaccine: Pediatrics (0 to 5 Years) and At-Risk Patients (6 to 64 Years) (1 - PCV) Pneumococcal Vaccine: Pediatrics (0 to 5 Years) and At-Risk Patients (6 to 64 Years) (1 - PCV) [facility] Start: 1972 Pneumococcal Vaccine: Pediatrics (0 to 5 Years) and At-Risk Patients (6 to 64 Years) (1 of 2 - PCV) Pneumococcal Vaccine: Pediatrics (0 to 5 Years) and At-Risk Patients (6 to 64 Years) (1 of 2 - PCV) [facility] Start: 1972 [facility] Start: 1967 MMR Vaccines (1 of 1 - Standard series) MMR Vaccines (1 of 1 - Standard series) [facility] Start: 1967 [facility] Start: 04-25-1967 COVID-19 Vaccine (#1) COVID-19 Vaccine (#1) [facility] Start: 1966 Hepatitis B Vaccines (1 of 3 - 3-dose series) Hepatitis B Vaccines (1 of 3 - 3-dose series) [facility] Start: 1966 Hepatitis C screening Hepatitis C screen [place], [place] Start: 1966 HIV screening [facility] Start: 1966 Medicare Advantage Annual Wellness Visit (AWV) Medicare Advantage Annual Wellness Visit (AWV) [facility] Start: 1966 Screening for malignant neoplasm of colon [facility] Start: 1966 [facility] End: 10-19-2024 Aerobic and Anaerobic Culture with Stain [facility] Work Phone: Comment on above: Release Upon Ordering for 1 Occurrences starting 10/19/2024 Once (Lab) for 1 Occ urrences starting 10/19/2024 until 10/19/2024 Aerobic and Anaerobi c Culture with Stain Aerobic and Anaerobic Culture with Stain Microbiology Routine 10/19/2024 3:08 PM EST [facility] End: 06-14-2019 Anaerobic Culture Anaerobic Culture Microbiology Routine One Time for 1 Occurrences starting 06/14/2019 until 06/14/2019 [place] Comment on above: One Time for 1 Occurrences starting 05/2019 until 06/14/2019 Bacteria identified in Unspecified specimen by Aerobe culture Culture, Aerobic Bacteria with Gram Stain Microbiology Routine 10/19/2024 3:08 PM EST [facility] Bacteria identified in Unspecified specimen by Anaerobe culture Anaerobic culture Microbiology Routine Acute cholecystitis 10/19/2024 1:52 PM EST [facility] Bacteria identified in Unspecified specimen by Anaerobe culture Anaerobic culture Microbiology Routine 10/19/2024 3:08 PM EST [facility] End: 08-08-2023 Bacteria identified in Urine by Culture [employer] Work Phone: Comment on above: STAT (Lab) for 1 Occurrences starting until 08/08/2023 End: 07-10-2025 Bacteria identified in Urine by Culture [employer] Work Phone: Comment on above: Once (Lab) for 1 Occurrences starting until 07/10/2025 End: 10-13-2023 Blood gases, arterial measurement [employer] Work Phone: End: 08-08-2023 Blood gases, venous measurement Blood gas, venous (ACH and SBH) Lab STAT Once (Lab) for 1 Occurrences starting 08/08/2023 until 08/08/2023 [employer] Work Phone: Comment on above: Once (Lab) for 1 Occurrences starting until 08/08/2023 End: 12-09-2023 Blood gases, venous measurement Blood gas, venous (ACH and SBH) Lab STAT Once (Lab) for 1 Occurrences starting 12/09/2023 until 12/09/2023 [employer] Work Phone: Comment on above: Once (Lab) for 1 Occurrences starting until 12/09/2023 End: 09-18-2020 CBC CBC Lab Routine Tomorrow AM for 1 Occurrences starting 09/18/2020 until 09/18/2020 [facility] Comment [facility] above: Tomorrow AM for 1 Occurrences starting 11/18/2019 until 09/18/2020 End: 09-19-2020 CBC Auto Differential CBC Auto Differential Lab Timed Tomorrow AM for 1 Occurrences starting 09/19/2020 until 09/19/2020 [facility] Comment on above: Tomorrow AM for 1 Occurrences starting 1 11/19/2019 until 09/19/2020 End: 11-25-2020 CBC Auto Differential CBC Auto Differential Lab Timed Tomorrow AM for 1 Occurrences starting 11/25/2020 until 11/25/2020 [facility] Comment on above: Tomorrow AM for 1 Occurrences starting 0 11/25/2020 until 11/25/2020 End: 09-19-2020 Comprehensive metabolic 2000 panel Comprehensive Metabolic Panel Lab Timed Tomorrow AM for 1 Occurrences starting 09/19/2020 until 09/19/2020 [facility] Comment on above: Tomorrow AM for 1 Occurrences starting 1 11/19/2019 until 09/19/2020 Comprehensive metabo lic 2000 panel Comprehensive Metabolic Panel Lab Routine Daily until discontinued starting 11/23/2020, 6 completed [facility] Comment on above: Daily until discontinued starting 2020, 6 completed End: 11-25-2020 Comprehensive metabolic 2000 panel Comprehensive Metabolic Panel Lab Timed Tomorrow AM for 1 Occurrences starting 11/25/2020 until 11/25/2020 [facility] Comment on above: Tomorrow AM for 1 Occurrences starting 0 11/25/2020 until 11/25/2020 Comprehensive Metabo lic Panel w/ Reflex to MG Comprehensive Metabolic Panel w/ Reflex to MG Lab Routine Daily until discontinued starting 06/15/2019, 6 completed [facility] Comment on above: Daily until discontinued starting 2018, 6 completed End: 06-26-2019 Culture Blood #1 Culture Blood #1 Microbiology STAT One Time for 1 Occurrences starting 06/26/2019 until 06/26/2019 [facility] Comment on above: One Time for 1 Occurrences starting 06/08 until 06/26/2019 Culture Blood #1 Culture Blood # 1 Microbiology STAT 06/26/2019 10:05 PM EDT [facility] End: 06-26-2019 Culture Blood #2 Culture Blood #2 Microbiology STAT One Time for 1 Occurrences starting 06/26/2019 until 06/26/2019 [facility] [place] Comment on above: One Time for 1 Occurrences starting 06/08 until 06/26/2019 Culture Blood #2 Culture Blood # 2 Microbiology STAT 06/26/2019 10:05 PM EDT [facility] End: 06-14-2019 Culture, Aerobic Bacteria with Gram Stai Culture, Aerobic Bacteria with Gram Stai Microbiology Routine One Time for 1 Occurrences starting 06/14/2019 until 06/14/2019 [facility] Comment on above: One Time for 1 Occurrences starting 05/2019 until 06/14/2019 End: 12-08-2020 Culture, Urine [facility] [employer] [place] Comment on above: One Time for 1 Occurrences starting 11/10 until 12/08/2020 Once for 1 Occurrenc es starting 12/08/2020 until 12/08/2020 Culture, Urine Culture, Urine Microbiology STAT 12/08/2020 5:14 PM EST [facility] [place] ECG 12 lead ECG 12 lead CV E CG STAT 10/24/2024 11:04 AM [facility] [employer] Work Phone: EKG [facility] End: 09-18-2020 HbA1c (Bld) [Mass fraction] Hemoglobin A1C Lab Routine One Time for 1 Occurrences starting 09/18/2020 until 09/18/2020 [facility] Comment on above: One Time for 1 Occurrences starting 09/08 until 09/18/2020 Initiate Oxygen Ther apy Protocol Initiate Oxygen Therapy Protocol Respiratory Care Routine Daily until discontinued starting 06/14/2019 [facility] Comment on above: Daily until discontinued starting 2018 End: 06-18-2019 Occult blood x 3, stool Occult blood x 3, stool Lab Routine One Time for 1 Occurrences starting 06/18/2019 until 06/18/2019 [facility] Comment on above: One Time for 1 Occurrences starting 06/08 until 06/18/2019 Oxygen therapy [[facility] Data Set] Initiate Oxygen Therapy Protocol Respiratory Care Routine Daily until discontinued starting 09/18/2020 [facility] Comment on above: Daily until discontinued starting 2019 End: 09-17-2020 POCT Glucose POCT Glucose Point of Care Testing Routine Every 30 Min for 4 Occurrences starting 09/17/2020 until 09/17/2020 [facility] [employer] [place] Comment on above: Every 30 Min for 4 Occurrences starting 09/17/2020 until 09/17/2020 POCT Glucose [facility] Comment on above: As Needed until discontinued [...] for 1 Occurrences starting 06/15/2019 until 06/15/2019 [facility] Comment on above: One Time for 1 Occurrences starting 06/2019 until 06/15/2019 End: 06-16-2019 POCT Glucose POCT Glucose Point of Care Testing Routine One Time for 1 Occurrences starting 06/16/2019 until 06/16/2019 [facility] Comment on above: One Time for 1 Occurrences starting 07/2019 until 06/16/2019 Procalcitonin Procalcitonin La b Routine Q48H until discontinued starting 06/14/2019, 3 completed [facility] [place] Comment on above: Q48H until discontinued starting 019, 3 completed End: 11-26-2020 Troponin I.cardiac [Mass/Vol] Troponin Lab Timed One Time for 1 Occurrences starting 11/26/2020 until 11/26/2020 [facility] Comment on above: One Time for 1 Occurrences starting 11/08 until 11/26/2020 Immunizations Immunization Date Immunization Notes Care Provider Argenis lopez 10-19-2024 influenza vaccine tiss-cult subunt (Flucelvax) STANDARD-DOSE injection 0.5 mL Dontrell Glozman DO Work Phone: [facility] [employer] 08-18-2023 influenza vac subuni t quadrivalent (Flucelvax) injection 0.5 mL Aaron Burgos DO Work Phone: [facility] 02-26-2022 Covid-19, Pfizer Gra y Top, Do Not Dilute, (Age 12 Y+), Im L Geronimo Lee MD Work Phone: [facility] 08-12-2021 influenza, injectabl e, quadrivalent, preservative free Geronimo Lee MD Work Phone: [facility] 08-12-2021 Rosaura Woodson Work Phone: [facility] 08-12-2021 influenza virus vacc ine, unspecified formulation Geronimo Lee MD Work Phone: [facility] 12-04-2020 Pfizer SARS-CoV-2 Vaccination Geronimo Lee MD Work Phone: [employer] 11-13-2020 Pfizer SARS-CoV-2 Vaccination Geronimo Lee MD Work Phone: [employer] 01-14-2019 influenza, injectabl e, quadrivalent, preservative free Dom Ortiz [facility], [place] 01-14-2019 Influenza, Quadv, 6 mo and older, IM, PF (Flulaval, Fluarix) Justin Walsh [facility], [place] 01-14-2019 Rosaura Vuong O Work Phone: [employer] NEGATED: Highlighted row has not occurred!10-09-2023 Influenza, injectable, [facility] [place] [facility], preservative free, quadrivalent Rosaura Mustafa DO Work Phone: [employer] Comment on above: Deferred: Contraindi cation - patient received at facility Payers Date Payer Category Payer Medicaid HMO [id number] 2024 Medicare [id number] 2024 Self-pay [id number] 2024 Unknown [id number] 2022 Medicare [id number] 2022 Medicare HMO [id number] 2022 Private Health Insurance [facility] DUAL [facility] DUAL [id number] [address] [address] [address] [address] [place] [address] Medicare HMO [id number] 2022 [place] [id number] 2022-Present [address] [place] [address] Medicaid [id number] 2017 Private Health Insurance [facility] DUAL xxxxxxxxx 2017-Present [address] [place] [address] xxxxxxxxx [id number] 1959 Private Health Insurance [id number] Unknown [id number]. 462 Unknown [id number]. 462 Unknown [id number]. 462 Unknown [id number] [id number]. 462 Unknown [id number]. 462 Unknown [id number] [id number]. 462 Unknown [id number] [id number]. 462 Unknown [id number] 2.16.840.1.541488.3.579.2. 462 Unknown [id number] [id number]. 462 Unknown [id number] [id number]. 462 Unknown [id number] [id number]. 462 Unknown [id number]. 462 Unknown [id number]. 462 Unknown [id number] [id number]. 462 Unknown [id number]. 462 Unknown [id number]. 462 Social History Date Type Detail Facility Start: 06-26-2019 End: 02-01-2025 Tobacco smoking status NHIS Never smoker [place] Start: 06-26-2019 End: 10-19-2024 Alcohol intake No [facility] Start: 1965 Sex Assigned At Not on file M [place], [place] Start: 01-02-2020 End: 07-26-2025 Alcohol intake Current non-drinker of alcohol (finding) [place], [place] Start: 09-20-2020 End: 02-01-2025 Tobacco use and exposure Never used [place] Start: 01-30-2023 End: 03-08-2023 Exposure to SARS-CoV-2 (event) Not sure [place] Start: 1965 Sex Assigned At Male [facility] Tobacco smoking status [facility] Work Phone: Start: 03-08-2023 History SDOH Alcohol Frequency 1 [facility] Start: 03-08-2023 History SDOH Alcohol Std Drinks 0 [facility] Start: 03-08-2023 End: 10-19-2024 History of Social function [facility] How often to you hav e a drink containing alcohol? Never [facility] How many standard drinks containing alcohol do you have on a typical day? Patient does not drink [facility] Start: 08-27-2022 Gender identity Identifies as male gender (finding) [facility] Within the last year , have you been afraid of your partner or ex-partner? No [facility] Start: 1965 Sex Assigned At Female [facility] How often to you hav e a drink containing alcohol? Monthly or less [facility] How many standard drinks containing alcohol do you have on a typical day? 1 or 2 [facility] Start: 06-08-2022 End: 02-28-2025 Sex Female (finding) [facility] Do you feel stress - tense, restless, nervous, or anxious, or unable to sleep at night because your mind is troubled all the time - these days [OSQ] Only a little [facility] (I/We) worried whether (my/our) food would run out before (I/we) got money to buy more. Never true [facility] How often do you nee d to have someone help you when you read instructions, pamphlets, or other written material from your doctor or pharmacy [SILS] Sometimes [facility] NEGATED: Highlighted rowStart: NINF History of tobacco use Passive smoker [facility] Clinical Notes 11-28-2020 to 09-11-2025 Telephone Encounter - Alma Delia Trimble RN - 09/11/2025 2:48 PM ESTTelephone Encounter - Alma Delia Trimble RN - 09/11/2025 2:48 PM ESTTelephone Encounter - JEREMY Neal - 09/06/2025 9:25 AM EDT Note Date & Type Note Facility 09-11-2025 Telephone encounter Note Spoke to nurse and advised to no longer send. Nurse voiced understanding [facility] 09-11-2025 Miscellaneous Notes Spoke to nurse and advised to no longer send. Nurse voiced understanding Diabetes managed by facility provider, no need to send [facility] BGL. Thank you Images from the original note were not included. Patient's BGL documented in this encounter [facility] 09-06-2025 Telephone encounter Note Diabetes managed by facility provider, no need to send [facility] BGL. Thank you [facility] 09-06-2025 Miscellaneous Notes Diabetes managed by facility provider, no need to send [facility] BGL. Thank you Images from the original note were not included. Patient's BGL documented in this encounter [facility] 09-05-2025 Telephone encounter Note Images from the original note were not included. Patient's BGL [facility] 07-30-2025 Telephone encounter Note Faxed Recent Chart note to [employer] [facility] 07-30-2025 Miscellaneous Notes Faxed Recent Chart note to [employer] Lease fax [facility] OV [facility] documented in this encounter [facility] 07-27-2025 Telephone encounter Note Lease fax last OV to [facility], [facility] 07-26-2025 History of Presen t illness Narrative Images from the original note were not included. [facility] ENDOCRINOLOGY [facility] [address] [place] [address] Dept: [phone] Dept Loc: [phone] Visit type: Reason for Visit: Diabetes Mellitus (Follow up) Assessment and Plan 1. Type 2 diabetes mellitus with hyperglycemia, with long-term current use of insulin ([facility]) 2. Insulin resistance 3. Type 2 diabetes mellitus with peripheral neuropathy ([facility]) 4. Hypertension associated with type 2 diabetes mellitus ([facility]) 5. Type 2 diabetes mellitus with hyperlipidemia ([facility]) ([facility]) Goal A1C = 7% Lab Results Component [...] HPI PCP = Jared Guzman Referring provider: [facility] follow up 11/25/2020 Initial [facility] Endo Office [...] stated that they are currently in the [facility]. If the patient is a minor, [...] crackers, fruit Dinner: meat, veg, carbs Salad, libyan or ranch dressing Beverages: Crystal light, Diet [...] found for: CHOLHDLRATIO No results found for: [id number] No results found for: "THYROID" Imaging/Testing: I [...] directly. Electronically signed by Celina Woodruff MSN, PRODUCT DISTRIBUTION SPECIALIST, ACNS-, [facility] Clinical Nurse Specialist and Certified Diabetes Care and Animal Husbandry Professor on 07/27/2025 6:44 PM Dany Woodruff APRN - ENGINEER EXHAUSTER [1] No Known Allergies [2] Current Outpatient [...] (HCC) Anxiety disorder Bipolar 1 disorder ([facility]) Blood circulation, collateral Cellulitis chronic L lower leg COVID 12/08/2021 Depression Diabetes mellitus ([facility]) Type II, on insulin Disease of blood and blood forming organ Endometrial carcinoma ([facility]) 11/25/2020 Endometrial hyperplasia Foot ulcer (HCC) Hx of blood clots RLE prior to amputation Hyperlipidemia Hypertension Lymphedema 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, RLE Morbidly obese ([facility]) Muscle weakness Osteomyelitis (HCC) Osteomyelitis (HCC) 2019 RLE Other lack of coordination Other specified soft tissue disorders Other symbolic dysfunctions Schizophrenia ([facility]) Sleep apnea no CPAP Venous insufficiency [4] Past Surgical History: Procedure Laterality Date ABCESS DRAINAGE Right 09/09/2018 FOOT; [facility] COLONOSCOPY 09/19/[address] Hyde COLONOSCOPY N/A 06/07/2025 Performed by Farhad Chavez MD at [facility] ENDOSCOPY DILATION AND CURETTAGE OF UTERUS 05/18/2019 ESOPHAGOGASTRODUODENOSCOPY 06/07/2025 Dr. Chavez @ [facility], no specimens HYSTEROSCOPY 12/23/2021 LEG AMPUTATION THROUGH KNEE Right 06/16/2019 UPPER GASTROINTESTINAL ENDOSCOPY N/A 06/29/2023 Dr Sergio Sibley at [facility]; no specimens WISDOM TOOTH EXTRACTION [5] Family History Problem Relation Name Age of Onset No Known Problems Mother No Known Problems Father documented in this encounter [facility] 07-24-2025 Telephone encounter Note Spoke with nurse Bales at the facility. Confirmed the appointment date and time. Agrees to bring recommended documents. The PCP is Dr Jared Guzman [facility] 07-24-2025 Miscellaneous Notes Spoke with nurse [...] included. Patient's BGL documented in this encounter [facility] 07-24-2025 Telephone encounter Note Patient has [...] may be managing insulin doses. Thank you [facility] [employer] Work Phone: 07-23-2025 Telephone encounter Note Images from the original note were not included. Patient's BGL [facility] 07-23-2025 Telephone encounter Note Spoke with PASTORA Barrera. She verbalized and understand below TE. [facility] 07-23-2025 Miscellaneous Notes Spoke with PASTORA [...] included. Patient's BGL documented in this encounter [facility] 07-20-2025 Telephone encounter Note I reviewed [...] recommend decreasing doses at this time. Thanks [facility] 07-20-2025 Miscellaneous Notes I reviewed blood [...] included. Patient's BGL documented in this encounter [facility] 07-19-2025 Telephone encounter Note Scanned, see in the media tab. [facility] 07-19-2025 Miscellaneous Notes Scanned, see in the media tab. Called to the facility, said they will fax it. Left a VM to faxed us the MAR and med list. Images from the original note were not included. Patient's BGL documented in this encounter [facility] 07-19-2025 Telephone encounter Note Called to the facility, said they will fax it. [facility] 07-18-2025 Telephone encounter Note Left a VM to faxed us the MAR and med list. [facility] 07-18-2025 Telephone encounter Note Images from the original note were not included. Patient's BGL [facility] 07-11-2025 Note Sinus rhythm Abnormal R-wave progression, late transition Left ventricular hypertrophy Borderline prolonged QT interval Electronically Signed On 07-11-2025 00:56:44 EDT by [facility] 07-11-2025 Note Sinus rhythm Abnormal R-wave progression, late transition Left ventricular hypertrophy Borderline prolonged QT interval Electronically Signed On 07-11-2025 00:56:44 EDT by [facility] 07-11-2025 Note IMPRESSION: Sinus rhythm Abnormal R-wave progression, late transition Left ventricular hypertrophy Borderline prolonged QT interval Electronically Signed On 07-11-2025 00:56:44 EDT by [facility] 07-10-2025 Hospital Discharg e tayla Cole [...] other concerning symptoms. documented in this encounter [facility] 07-10-2025 Emergency department Note Pt here to the ER via EMS from c/o headache and nausea for the last couple of days. documented in this encounter [facility] 07-10-2025 Emergency department Triage note Pt here to the ER via EMS from c/o headache and nausea for the last couple of days. [facility] 07-05-2025 Telephone encounter Note Appointment scheduled on 07/26 at 11am [facility] 07-05-2025 Miscellaneous Notes Appointment scheduled on 07/26 at 11am Images from the original note were not included. Patient's BGL 04/26-07/02/2025 documented in this encounter [facility] 07-04-2025 Telephone encounter Note Images from the original note were not included. Patient's BGL 04/26-07/02/2025 [facility] 07-04-2025 Telephone encounter Note I called the facility to request another copy. [facility] 07-04-2025 Miscellaneous Notes I called the facility to request another copy. The pages are cut off I cannot see the doses completely Images from the original note were not included. Patient's BGL documented in this encounter [facility] 06-29-2025 Telephone encounter Note Downloaded blood glucose log and insulin administration MAR to media tab for the period of 06/08 through 06/29 for provider review. [facility] 06-29-2025 Miscellaneous Notes Downloaded blood glucose log and insulin administration MAR to media tab for the period of 06/08 through 06/29 for provider review. Spoke with Susan KIM at the [facility] and requested a new BGL with accompanying [...] BGL by provider. Fax number provided was [phone] Spoke with RN caring for Maria Luisa at the facility regarding need for MAR for 05/29 through 06/18 to be faxed for provider review for use of SSI and any missed doses. She states she will fax the MAR records from 05/29 - 06/18 to [phone]. Please ask for MAR and med list I need to know if SS is ever used. Thank you Images from the original note were not included. Patient's BGL documented in this encounter [facility] 06-29-2025 Telephone encounter Note Spoke with Susan KIM at the [facility] and requested a new BGL with accompanying insulin administration record for 06/08-06/29 for provider review. States she will send it herself. Will watch for information and upload into media tab. [facility] Telephone encounter Note The pages are cut off I cannot see the doses completely [employer] Phone: 06-27-2025 Telephone encounter Note Images from the original note were not included. Patient's BGL [facility] [employer] 06-26-2025 Telephone encounter Note Spoke with Sheri GUILLORY at the facility. She will re-fax the insulin administration records for 05/29-06/18 for comparison with the BG log sent previously. [facility] 06-22[facility]25 Telephone encounter Note Unfortunately half the document is cut off I cannot see what the Humulin U-500 base dose is, its on 1 page On the second page I can see the sliding scale [employer] Phone: 06-22-2025 Telephone encounter Note Scanned faxed MAR from facility into media tab for dates 06/08/25 - 06/22/25 [facility] [employer] 06-21-2025 Telephone encounter Note Spoke with Sheri GUILLORY at the facility who says she will fax the MAR record for 05/29 through 06/18 for comparison with the BGL by provider. Fax number provided was [phone] [facility] 06-20-2025 Telephone encounter Note Spoke with RN caring for Maria Luisa at the facility regarding need for MAR for 05/29 through 06/18 to be faxed for provider review for use of SSI and any missed doses. She states she will fax the MAR records from 05/29 - 06/18 to [phone]. [facility] 06-20-2025 Telephone encounter Note Please ask for MAR and med list I need to know if SS is ever used. Thank you [facility] 06-19-2025 Telephone encounter Note Images from the original note were not included. Patient's BGL [facility] 06-07-2025 Telephone encounter Note Images from the original note were not included. Patient's BGL [facility] 06-07-2025 Miscellaneous Notes Images from the original note were not included. Patient's BGL documented in this encounter [facility] 06-07-2025 Nurse Note Spoke with Ninfa at [facility] and updated her about of the patient's procedures being cancelled due to low oxygen levels after the start of the EGD. Advised that per Dr. Chavez patient will need cardiac and pulmonary clearance prior to any future endoscopy procedures. See MD report. Skilled transport to arrive at 12:30 to take patient back to . At 12:55 spoke with transport company [phone] who said it would be another 30 minutes before they would arrive. Patient given shannon crackers and roselia enriqueta for complaints of hunger. [facility] 06-07-2025 Miscellaneous Notes Spoke with Ninfa at [facility] and updated her about of the patient's procedures being cancelled due to low oxygen levels after the start of the EGD. Advised that per Dr. Chavez patient will need cardiac and pulmonary clearance prior to any future endoscopy procedures. See MD report. Skilled transport to arrive at 12:30 to take patient back to . At 12:55 spoke with transport company [phone] who said it would be another 30 minutes before they would arrive. Patient given shannon crackers and roseila enriqueta for complaints of hunger. [facility] Patient Name: Will Jacinto Procedure Date: 06/07/2025 10:37 AM Gender: Female Date of : 1965 Age: 59 Admit Type: Outpatient Note Status: Finalized Endoscopist: Farhad Chavez MD, [id number] Procedure: Upper GI endoscopy Indications: h/o anemia, [...] This was discussed with Anesthesia doctor and DEAF/HARD OF HEARING SPECIALIST who were in the procedure room and [...] by the physician, the nurse and the professor of finance in the pre-procedure area in the procedure [...] 06/07/2025 10:37 AM documented in this encounter [facility] 06-07-2025 Note Pt saturation starte d falling dropped and procedure was stopped. Procedure aborted for safety. [facility] 06-07-2025 Nurse Note Pt saturation started falling dropped and procedure was stopped. Procedure aborted for safety. [facility] 06-07-2025 Nurse Note Pt saturation started falling dropped and procedure was stopped. Procedure aborted for safety. Spoke with patient's niece Jovana Quesada regarding consent for procedure. She states that patient is able to sign his own consents. documented in this encounter [facility] 06-07-2025 Procedure note [facility] Patient Name: Will Jacinto Procedure Date: 06/07/2025 10:37 AM Gender: Female Date of : 1965 Age: 59 Admit Type: Outpatient Note Status: Finalized Endoscopist: Farhad Chavez MD, [id number] Procedure: Upper GI endoscopy Indications: h/o anemia, [...] This was discussed with Anesthesia doctor and DEAF/HARD OF HEARING SPECIALIST who were in the procedure room and [...] by the physician, the nurse and the professor of finance in the pre-procedure area in the procedure [...] 0 Note Initiated On: 06/07/2025 10:37 AM [facility] 06-07-2025 Note Spoke with patient's nidarrell Quesada regarding consent for procedure. She states that patient is able to sign his own consents. [facility] 06-07-2025 Nurse Note Spoke with patient's niece Jovana Quesada regarding consent for procedure. She states that patient is able to sign his own consents. 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 Farhad Chavez EGD/Colonoscopy Date: 06/07/25 Arrival time: 10:00 am Please report to: [place] [address] Spoke with Nabil at [facility] , confirmed patient will attend scheduled procedure. All questions or concerns addressed. Pt has prep medication on hand. Prep instructions sent via [employer] if active. [facility] 06-04-[address] Farhad Chavez EGD/Colonoscopy Date: 06/07/25 Arrival time: 10:00 am Please report to: [facility] [address] [place] [address] Spoke with Nabil at [facility] , confirmed patient will attend scheduled procedure. All questions or concerns addressed. Pt has prep medication on hand. Prep instructions sent via [employer] if active. Dr. Farhad Chavez EGD/Colonoscopy Date: 06/07/25 Arrival time: 10:00 am Please report to: [facility] [address] [place] [address] Spoke with Jose Raul at [facility] , confirmed patient will attend scheduled procedure. All questions or concerns addressed. Pt has prep medication on hand. Prep instructions sent via [employer] if active. Prep instructions faxed to [facility] Attn: Jose Raul. [phone] documented in this encounter [facility] 06-01-2025 Telephone encounter Note I have [...] [] Other () Med rec updated: NA [facility] 06-01-2025 Miscellaneous Notes I have reviewed [...] included. Patient's BGL documented in this encounter [facility] 05-31-2025 Telephone encounter Note Images from the original note were not included. Patient's BGL [facility] 05-31-[address] Farhad Chavez EGD/Colonoscopy Date: . 06/07/25 Arrival time: 10:00 am Please report to: [place] [address] Spoke with Jose Raul at [facility] , confirmed patient will attend scheduled procedure. All questions or concerns addressed. Pt has prep medication on hand. Prep instructions sent via [employer] if active. Prep instructions faxed to [facility] Attn: Jose Raul. [phone] [facility] 05-18-2025 Telephone encounter Note Called skilled nursing and talk with nurse, she don't know and transfer to digital program manager, put me in hold for 25 min and never answer, if they call back please ask what they need . Thank you. [facility] 05-18-2025 Miscellaneous Notes Called skilled nursing and talk with nurse, she don't know and transfer to digital program manager, put me in hold for 25 min and never answer, if they call back please ask what they need . Thank you. Not sure what is being asked. Did not order dietary restrictions, only recommendations. Please advise! Name of caller: Lisa Contact phone number: [phone] Relationship to Patient: Nurse at [facility] Provider: KELLEY Schultz Practice: Endo Chief Complaint/Reason for Call: Patient is being non compliant with no low carb diet restrictions. They are asking for an order to go back to unrestricted diet. Please advise. Best time of day caller can be reached: Any Patient advised that office/PCP has 24-48 business hours to return their call: Yes documented in this encounter [facility] 05-18-2025 Telephone encounter Note Not sure what is being asked. Did not order dietary restrictions, only recommendations. [facility] 05-14-2025 Telephone encounter Note Please advise! [facility] 05-14-2025 Telephone encounter Note Name of caller: Lisa Contact phone number: [phone] Relationship to Patient: Nurse at [facility] Provider: KELLEY Schultz Practice: Endo Chief Complaint/Reason for Call: Patient is being non compliant with no low carb diet restrictions. They are asking for an order to go back to unrestricted diet. Please advise. Best time of day caller can be reached: Any Patient advised that office/PCP has 24-48 business hours to return their call: Yes [facility] 05-07-2025 Telephone encounter Note Called patient's skilled nursing and informed. [facility] 05-07-2025 Miscellaneous Notes Called patient's skilled nursing and informed. Continue current doses Recommend future BGLs be sent in 4 week intervals. Or sooner if experiencing hypoglycemia or persistent elevations. Images from the original note were not included. Patient's BGL documented in this encounter [facility] 05-07-2025 Telephone encounter Note Continue current doses Recommend future BGLs be sent in 4 week intervals. Or sooner if experiencing hypoglycemia or persistent elevations. [facility] 05-07-2025 Telephone encounter Note Images from the original note were not included. Patient's BGL [facility] 05-01-2025 Telephone encounter Note Called patient nurse at skilled nursing and informed. [facility] 05-01-2025 Miscellaneous Notes Called patient nurse at skilled nursing and informed. Blood glucose log variable. 6/18-6/19 elevated. 6/20-6/23 at goal except for one check. Continue current doses and limit carbs/improve diet. Recommend future BGLs be sent in 4 week intervals. Or sooner if experiencing hypoglycemia or persistent elevations. Images from the original note were not included. Patient's BGL documented in this encounter [facility] 05-01-2025 Telephone encounter Note Blood glucose log variable. 6/18-6/19 elevated. 6/20-6/23 at goal except for one check. Continue current doses and limit carbs/improve diet. Recommend future BGLs be sent in 4 week intervals. Or sooner if experiencing hypoglycemia or persistent elevations. [facility] 04-30-2025 Telephone encounter Note Images from the original note were not included. Patient's BGL [facility] 04-20-2025 Telephone encounter Note Called and relayed the TE below to the pt's nurse. [facility] 04-20-2025 Miscellaneous Notes Called and relayed the TE below to the pt's nurse. Continue current doses. Future blood glucose log's requested to have 2 weeks of data. BGL downloaded in media for your review. Thanks documented in this encounter [facility] 04-19-2025 Miscellaneous Notes Continue current doses. Future blood glucose log's requested to have 2 weeks of data. BGL downloaded in media for your review. Thanks documented in this encounter [facility] 04-19-2025 Telephone encounter Note Continue current doses. Future blood glucose log's requested to have 2 weeks of data. [facility] 04-17-2025 Telephone encounter Note BGL downloaded in media for your review. Thanks [facility] 04-06-2025 Telephone encounter Note Images from the original note were not included. Faxed BG recommendation to [facility] at fax #: [phone]. [facility] 04-06-2025 Miscellaneous Notes Images from the original note were not included. Faxed BG recommendation to [facility] at fax #: [phone]. Good Afternoon, I reviewed blood sugars for Maria Luisa, and they are mostly stable. There are no hypoglycemic events and blood sugars are not in the 300s on this log which is fantastic. No changes recommended at this time. Thanks! Images from the original note were not included. 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 Please be advised. Best time of day caller can be reached: Any Patient advised that office/PCP has 24-48 business hours to return their call: Yes documented in this encounter [facility] 04-06-2025 History of Presen t illness Narrative Images from the original note were not included. [facility] [place] [address] [place] [address] Dept: [phone] Dept Loc: [phone] Visit type: Established patient Reason for Visit: Follow-up and Diabetes Mellitus Assessment and Plan 1. Type 2 diabetes mellitus with hyperglycemia, with long-term current use of insulin ([facility]) - AMB POC HEMOGLOBIN A1C - Comprehensive metabolic panel - Microalbumin / creatinine urine ratio 2. Type 2 diabetes mellitus with diabetic autonomic neuropathy, with long-term current use of insulin ([facility]) 3. Hypertension associated with type 2 diabetes mellitus ([facility]) 4. Mixed diabetic hyperlipidemia associated with type [...] is Jared Guzman Referring is PCP Previous Fur Storage Clerk: [place] Initial [facility] office visit: Inpatient [...] fingers, couple slices of pizza Meats, Salad, libyan or ranch dressing Beverages: Crystal light, Diet [...] absence of other toe(s), unspecified side ([facility]) Anxiety disorder Bipolar 1 disorder ([facility]) Blood circulation, collateral Cellulitis chronic L lower leg COVID 12/08/2021 Depression Diabetes mellitus ([facility]) Type II, on insulin Disease of blood and blood forming organ Endometrial carcinoma ([facility]) 11/25/2020 Endometrial hyperplasia Foot ulcer ([facility]) Hx of blood clots RLE prior to amputation Hyperlipidemia Hypertension Lymphedema MDRO (multiple drug resistant organisms) resistance hx CRE and MRSA in 2018, RLE Morbidly obese ([facility]) Muscle weakness Osteomyelitis ([facility]) Osteomyelitis ([facility]) 2019 RLE Other lack of coordination Other specified soft tissue disorders Other symbolic dysfunctions Schizophrenia ([facility]) Sleep apnea no CPAP Venous insufficiency Social [...] ENDOSCOPY N/A 06/29/2023 Dr Sergio Sibley at [facility]; no specimens WISDOM TOOTH EXTRACTION Family History [...] found for: CHOLHDLRATIO No results found for: FLIG21QXD Imaging/Testing: Portions of the information within this encounter were entered using an electronic dictation system. Best attempts were made to edit/proofread the information prior to note completion. Despite the review of information, some errors may remain. If there are questions related to the information contained within the note please contact the signing physician directly. documented in this encounter [facility] 04-05-2025 Telephone encounter Note Good Afternoon, I reviewed blood sugars for Maria Luisa, and they are mostly stable. There are no hypoglycemic events and blood sugars are not in the 300s on this log which is fantastic. No changes recommended at this time. Thanks! [facility] 04-05-2025 Telephone encounter Note Images from the original note were not included. 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 Please be advised. Best time of day caller can be reached: Any Patient advised that office/PCP has 24-48 business hours to return their call: Yes [facility] 02-27-2025 Telephone encounter Note Images from the original note were not included. Patient's BGL [facility] 02-27-2025 Miscellaneous Notes Images from the original note were not included. Patient's BGL documented in this encounter [facility] 02-16-2025 Telephone encounter Note [facility] fax #: [phone]. [facility] 02-16-2025 Miscellaneous Notes Faxed letter to preethi altagracia at fax #: [phone]. I reviewed the blood glucose log. Blood [...] included. Patient's BGL documented in this encounter [facility] 02-15-2025 Telephone encounter Note I reviewed the blood glucose log. Blood sugars remain variable. Please increase U500 insulin to 150 before breakfast, 130 before lunch and 150 before dinner. If blood sugar before meal is 90-120, give half dose If less than 90 and patient eating little carbohydrates for meal, hold u500 dose. Thank you, JEREMY Schuster CNP [facility] 02-15-2025 Telephone encounter Note Images from the original note were not included. Patient's BGL [facility] 02-13-2025 Telephone encounter Note Called [facility] [place] to offer cancel the [facility] visit per provider. Visit canceled. [facility] 02-13-2025 Miscellaneous Notes Called [facility] to offer cancel the [facility] visit per provider. Visit canceled. Lung nodule stable-does not need f/up CT reviewed-from Oct. He declined sleep med referral. I do not have to see him. I would recommend that they cancel f/up. Nodule unchanged for 2 yrs.. Nurse from [facility] called to schedule Annual follow up. Follow up scheduled for 03/02/2025. Patient is non weight bearing and uses a deedee. Further question is whether they bring with deedee or ambulance cot. Please advise. [facility] Radiology called stating that CT chest wo IV contrast order will before its completion. Requested new order to be placed. Please advise. documented in this encounter [facility] 02-12-2025 Note Lung nodule stable-d oes not need f/up CT reviewed-from Oct. He declined sleep med referral. I do not have to see him. I would recommend that they cancel f/up. Nodule unchanged for 2 yrs.. [facility] 02-12-2025 Telephone encounter Note Lung nodule stable-does not need f/up CT reviewed-from Oct. He declined sleep med referral. I do not have to see him. I would recommend that they cancel f/up. Nodule unchanged for 2 yrs.. [facility] Work Phone: 02-12-2025 Miscellaneous Notes Lung nodule stable-does not need f/up CT reviewed-from Oct. He declined sleep med referral. I do not have to see him. I would recommend that they cancel f/up. Nodule unchanged for 2 yrs.. Nurse from [facility] called to schedule Annual follow up. Follow up scheduled for 03/02/2025. Patient is non weight bearing and uses a deedee. Further question is whether they bring with deedee or ambulance cot. Please advise. [facility] Radiology called stating that CT chest wo IV contrast order will before its completion. Requested new order to be placed. Please advise. documented in this encounter [facility] 02-12-2025 Telephone encounter Note Nurse from [facility] called to schedule Annual follow up. Follow up scheduled for 03/02/2025. Patient is non weight bearing and uses a deedee. Further question is whether they bring with deedee or ambulance cot. Please advise. [facility] 02-09-2025 Telephone encounter Note Faxed new orders to [facility] at fax #: [phone]. [facility] 02-09-2025 Miscellaneous Notes Faxed new orders to héctororgómez frias at fax #: [phone]. I reviewed blood sugars. Blood sugars are [...] included. Patient's BGL documented in this encounter [facility] 02-08-2025 Telephone encounter Note I reviewed [...] 102 Bedtime Blood sugars: 302, 108, 194 [facility] 02-08-2025 Miscellaneous Notes I reviewed blood [...] included. Patient's BGL documented in this encounter [facility] 02-08-2025 Telephone encounter Note [facility] Radiology called stating that CT chest wo IV contrast order will before its completion. Requested new order to be placed. Please advise. [facility] 02-08-2025 Miscellaneous Notes [facility] Radiology called stating that CT chest wo IV contrast order will before its completion. Requested new order to be placed. Please advise. documented in this encounter [facility] 02-07-2025 Telephone encounter Note Images from the original note were not included. Patient's BGL [facility] 02-01-2025 History of Presen t illness Narrative Vascular Surgery Outpatient Consultation Chief Complaint Patient presents with New Patient Dr. Guzman/ venous insufficiency, arterial occlusion? Reason for Consult: PVD Requesting Physician: Dr. Guzman HISTORY OF PRESENTILLNESS: The patient is a 59 y.o. adult with significant medical hx listed below, who is here for evaluation of PAD. Pt is from [facility]. He is in a wheelchair. He states [...] absence of other toe(s), unspecified side ([facility]) Anxiety disorder Bipolar 1 disorder ([facility]) Blood circulation, collateral Cellulitis chronic L lower leg COVID 12/08/2021 Depression Diabetes mellitus ([facility]) Type II, on insulin Disease of blood and blood forming organ Endometrial carcinoma ([facility]) 11/25/2020 Endometrial hyperplasia Foot ulcer ([facility]) Hx of blood clots RLE prior to amputation Hyperlipidemia Hypertension Lymphedema MDRO (multiple drug resistant organisms) resistance hx CRE and MRSA in 2018, RLE Morbidly obese ([facility]) Muscle weakness Osteomyelitis ([facility]) Osteomyelitis ([facility]) 2019 RLE Other lack of coordination Other specified soft tissue disorders Other symbolic dysfunctions Schizophrenia ([facility]) Sleep apnea no CPAP Venous insufficiency Past Surgical History: Past Surgical History: Procedure Laterality Date ABCESS DRAINAGE Right 09/09/2018 FOOT; ACH COLONOSCOPY 09/19/[address] Hyde DILATION AND CURETTAGE OF UTERUS 05/18/2019 HYSTEROSCOPY 12/23/2021 LEG AMPUTATION THROUGH KNEE Right 06/16/2019 UPPER GASTROINTESTINAL ENDOSCOPY N/A 06/29/2023 Dr Sergio Sibley at [facility]; no specimens WISDOM TOOTH EXTRACTION Current Medications: [...] meal, hold u500 dose. 01/01/25 Margo Guerrero, PRODUCT DISTRIBUTION SPECIALIST - ARCHITECTURAL DRAFTSPERSON lactulose (Kristalose) 20 g packet Take 20 [...] file Stress: No Stress Concern Present (10/19/2024) [place] [employer] - Occupational Stress Questionnaire Feeling of Stress : Only a little Social Connections: Unknown (10/19/2024) Social Connection and Isolation Panel [NHANES] Frequency of Communication with Friends and Family: Three times a week Frequency of Social Gatherings with Friends and Family: Once a week Attends Protestant Services: 1 to 4 times per year [...] Visit Circulatory PAD (peripheral artery disease) ([facility]) - Primary Relevant Orders Vascular US lower extremity arterial PVR Other Visit Diagnoses Hx of AKA (above knee amputation), right ([facility]) Lymphedema of left leg Morbid obesity ([facility]) Pt with hx of right AKA and [...] results of PVR documented in this encounter [facility] 01-31-2025 Telephone encounter Note Called rica/jesus Moise released message as written, she stated that she understood. [facility] 01-31-2025 Miscellaneous Notes Called rica/jesus Moise released message as written, she [...] included. Patient's BGL documented in this encounter [facility] 01-30-2025 Telephone encounter Note Blood sugars are extremely variable. Breakfast blood sugars can vary between 101-304 Lunch blood sugars between 135-308 Dinner variations between 93-336 Insulin doses can not be modified for riskof hypoglyamcia or hyperglycemia. Limit oral intake to 60 grams of carbs per meal and 15 grams of carbs/snack. [facility] 01-29-2025 Telephone encounter Note Images from the original note were not included. Patient's BGL [facility] 01-19-2025 Telephone encounter Note Faxed orders to kimberly frias at fax #: [phone]. [facility] 01-19-2025 Miscellaneous Notes Faxed orders to kimberly frias at fax #: [phone]. I reviewed blood sugar logs. Blood sugars [...] included. Patients BGL documented in this encounter [facility] 01-17-2025 Telephone encounter Note I reviewed [...] in addition to the current medication doses. [facility] 01-15-2025 Telephone encounter Note Images from the original note were not included. Patients BGL [facility] 01-02-2025 Telephone encounter Note Labs Noted [facility] 01-02-2025 Miscellaneous Notes Labs Noted Images from the original note were not included. Requested BGLs and a recent CMP was received , please advise. documented in this encounter [facility] 01-01-2025 Telephone encounter Note Images from the original note were not included. Requested BGLs and a recent CMP was received , please advise. [facility] 01-01-2025 History of Presen t illness Narrative Images from the original note were not included. [facility] ENDOCRINOLOGY - [place] [address] [address] [facility] [address] [facility] [address] Dept: [phone] Dept Loc: [phone] Visit type: Established patient Reason for Visit: Hospital Follow-up, Diabetes Mellitus, and Hyperglycemia Assessment and Plan 1. Type 2 diabetes mellitus with hyperglycemia, with long-term current use of insulin ([facility]) - Microalbumin / creatinine urine ratio 2. Type 2 diabetes mellitus with diabetic autonomic neuropathy, with long-term current use of insulin ([facility]) 3. S/P AKA (above knee amputation) unilateral, right ([facility]) 4. Mixed hyperlipidemia - Lipid panel 5. Microalbuminuria 6. Essential hypertension 7. Class 3 severe obesity due to excess calories with serious comorbidity and body mass index (BMI) of 45.0 to 49.9 in adult ([facility]) A1c 6.9 as of 10/19/2024. 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: [place] [facility] office visit: Inpatient [...] fingers, couple slices of pizza Meats, Salad, libyan or ranch dressing Beverages: Crystal light, Diet [...] absence of other toe(s), unspecified side ([facility]) Anxiety disorder Bipolar 1 disorder ([facility]) Blood circulation, collateral Cellulitis chronic L lower leg COVID 12/08/2021 Depression Diabetes mellitus ([facility]) Type II, on insulin Disease of blood and blood forming organ Endometrial carcinoma ([facility]) 11/25/2020 Endometrial hyperplasia Foot ulcer ([facility]) Hx of blood clots RLE prior to amputation Hyperlipidemia Hypertension Lymphedema MDRO (multiple drug resistant organisms) resistance hx CRE and MRSA in 2018, RLE Morbidly obese ([facility]) Muscle weakness Osteomyelitis ([facility]) Osteomyelitis ([facility]) 2019 RLE Other lack of coordination Other specified soft tissue disorders Other symbolic dysfunctions Schizophrenia ([facility]) Sleep apnea no CPAP Venous insufficiency Social History Tobacco Use Smoking status: Never Smokeless tobacco: Never Substance Use Topics Alcohol use: No Past Surgical History: Procedure Laterality Date ABCESS DRAINAGE Right 09/09/2018 FOOT; ACH COLONOSCOPY 09/19/[address] Hyde DILATION AND CURETTAGE OF UTERUS 05/18/2019 HYSTEROSCOPY 12/23/2021 LEG AMPUTATION THROUGH KNEE Right 06/16/2019 UPPER GASTROINTESTINAL ENDOSCOPY N/A 06/29/2023 Dr Sergio Sibley at [facility]; no specimens WISDOM TOOTH EXTRACTION Family History [...] found for: CHOLHDLRATIO No results found for: [id number] Imaging/Testing: Portions of the information within this encounter were entered using an electronic dictation system. Best attempts were made to edit/proofread the information prior to note completion. Despite the review of information, some errors may remain. If there are questions related to the information contained within the note please contact the signing physician directly. documented in this encounter [facility] 01-01-2025 Instructions JEREMY Vincent CNP - 01/01/2025 11:00 AM EST Please send Ophthalmology Note once completed this year. Please note if any insulin doses are held on blood log. documented in this encounter [facility] 12-29-2024 Telephone encounter Note Called VAN mckeon/jesus Ocasio released message as written, no insulin has been held. [facility] 12-29-2024 Miscellaneous Notes Called VAN s/w [...] Name of caller: Ninfa Contact phone number: [phone] Relationship to Patient: [facility] Provider: KRANTHI Guerrero Practice: [facility] Endocrinology Chief Complaint/Reason for Call: Ninfa states [...] included. Faxed orders from [facility] to [facility] I have reviewed the pt's glucose log. [...] included. Patients BGL documented in this encounter [facility] 12-27-2024 Telephone encounter Note Roberto Ninfa, I [...] and management of the insulin doses. Thanks! [facility] 12-27-2024 Miscellaneous Notes Hi Ninfa, I [...] Name of caller: Ninfa Contact phone number: [phone] Relationship to Patient: Preethi Frias Provider: KRANTHI Guerrero Practice: [facility] Endocrinology Chief Complaint/Reason for Call: Ninaf states she would like to know at what point should they hold the insulin regular (HumuLIN R) 500 UNIT/ML CONCENTRATED injection for the patient. Please review. Best time of day caller can be reached: any Patient advised that office/PCP has 24-48 business hours to return their call: Yes Images from the original note were not included. Faxed orders from [facility] to [facility] I have reviewed the pt's glucose log. [...] included. Patients BGL documented in this encounter [facility] 12-22-2024 Telephone encounter Note Please advise. [facility] 12-22-2024 Miscellaneous Notes Please advise. Name of caller: Ninfa Contact phone number: [phone] Relationship to Patient: [facility] Provider: KRANTHI Guerrero Practice: [facility] Endocrinology Chief Complaint/Reason for Call: Ninfa states [...] note were not included. Faxed orders from [facility] to [facility] I have reviewed the pt's glucose log. [...] included. Patients BGL documented in this encounter [facility] 12-22-2024 Telephone encounter Note Name of caller: Ninfa Contact phone number: [phone] Relationship to Patient: [facility] Provider: KRANTHI Guerrero Practice: [facility] Endocrinology Chief Complaint/Reason for Call: Ninfa states she would like to know at what point should they hold the insulin regular (HumuLIN R) 500 UNIT/ML CONCENTRATED injection for the patient. Please review. Best time of day caller can be reached: any Patient advised that office/PCP has 24-48 business hours to return their call: Yes [facility] 12-22-2024 Telephone encounter Note Images from the original note were not included. Faxed orders from [facility] to [facility] 12-21-2024 History of Presen t illness Narrative Patient was verified by name and . Images from the original note were not included. [facility] GA[facility] - [address] [address] Dept: [phone] Dept Loc: [phone] Visit type: New Reason for Visit: New [...] cholecystitis without obstruction BMI 50.0-59.9, adult ([facility]) 59 year old male referred by Rosy Ibarra CNP, re: calculus of gallbladder without cholecystitis without obstruction. Patient hospitalized 10/18/2024-10/23/2024 @ [facility] 2/2 acute cholecystitis. Blood sugars uncontrolled and [...] patient's first colonoscopy --referral previously placed to [facility] Advised patient to call office with [...] cholecystitis without obstruction. He presents from facility, [facility] (residing since 2018). He has pmh DM2, morbid obesity, bipolar, schizophrenia, JOHN, lymphedema, HTN, diabetic neuropathy, and hx osteomyelitis of RLE with right AKA. Patient was hospitalized 10/18/2024-10/23/2024 at [facility] related to acute cholecystitis. Due to medical [...] to surgical intervention. He was referred to [facility]. Presently denies nausea and vomiting. Having [...] Medium Sepsis without acute organ dysfunction ([facility]) 10/07/2023 Priority: Medium Abdominal pain 08/19/2023 Priority: Medium Upper abdominal pain 08/17/2023 Priority: Medium Chest pain 06/28/2023 Priority: Medium Chest pain, unspecified type 06/28/2023 Priority: Medium Hypertension 11/25/2020 Priority: Medium Hyperlipidemia 10/07/2021 Thickened endometrium 11/26/2020 Complex endometrial hyperplasia with atypia 11/26/2020 Diabetic gastroparesis associated with type 2 diabetes mellitus ([facility]) ([facility]) 11/26/2020 Endometrial carcinoma ([facility]) 11/25/2020 Endometrial hyperplasia 11/25/2020 Diabetic hyperosmolar non-ketotic state ([facility]) ([facility]) 11/25/2020 Chronic acquired lymphedema 11/25/2020 Chronic osteomyelitis ([facility]) ([facility]) 11/25/2020 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 ([facility]) 11/25/2020 Type 2 diabetes mellitus with hyperglycemia, with long-term current use of insulin ([facility]) 11/25/2020 Hyperglycemia 11/25/2020 S/P AKA (above knee amputation) unilateral, right ([facility]) 11/25/2020 Ileus ([facility]) ([facility]) 09/27/2020 Esophagitis 09/22/2020 Nausea and vomiting 09/22/2020 Diabetic foot infection ([facility]) 06/14/2019 Post-menopausal bleeding 05/16/2019 Cellulitis 01/17/2019 Class 3 severe obesity due to excess calories with serious comorbidity and body mass index (BMI) of 60.0 to 69.9 in adult ([facility]) 01/13/2019 Left leg cellulitis 01/11/2019 Cellulitis and [...] negative sonographic Caldwell's sign reported by the angiography technologist. Pancreas: Largely obscured by bowel gas. [...] Physician MD MUNIZ REYNALDO C. Accession Number [id number] CPT4 Codes 73639 () Reason For Exam nausea, diabetees Report [...] 4:03 PM 12/21/24 documented in this encounter [facility] 12-21-2024 Instructions JEREMY Kinsey CNP - 12/21/2024 8:30 AM EST --Please call office with any questions or concerns! [phone] --Schedule EGD (upper endoscopy) and colonoscopy for [...] be sent through Care Everywhere.Upper GI Endoscopy ([place])Colonoscopy ([place])documented in this encounter [facility] 12-21-2024 Telephone encounter Note I have reviewed [...] will assist with stabilizing blood sugars. Thanks! [facility] 12-20-2024 Telephone encounter Note Images from the original note were not included. Patients BGL [facility] 12-07-2024 History of Presen t illness Narrative Images from the original note were not included. Lilo Rizo MD General Surgery Outpatient Post-Operative/Follow Up Office Note Patient ID: Will Jacinto [id number] y.o. 1965 Interval History 12/07/24: Patient [...] ENDOSCOPY N/A 06/29/2023 Dr Sergio Sibley at [facility]; no specimens WISDOM TOOTH EXTRACTION Medications Prior [...] 3 times daily. 11/28/24 Yes Margo Guerrero PRODUCT DISTRIBUTION SPECIALIST - ARCHITECTURAL DRAFTSPERSON lisinopril 40 MG tablet Take 0.5 tablets [...] 12/01/24 12/08/24 Yes Rosy Ibarra APRN - ARCHITECTURAL DRAFTSPERSON pantoprazole (ProtoNix) 40 MG EC tablet Take [...] No Stress: No Stress Concern Present (10/19/2024) [place] [employer] - Occupational Stress Questionnaire Feeling of Stress : Only a little Social Connections: Unknown (10/19/2024) Social Connection and Isolation Panel [NHANES] Frequency of Communication with Friends and Family: Three times a week Frequency of Social Gatherings with Friends and Family: Once a week Attends Protestant Services: 1 to 4 times per year [...] Behavior normal. Orders Placed This Encounter Procedures [facility] Wt Mg[facility] Program ASSESSMENT AND PLAN: [...] education and counseling. documented in this encounter [facility] 12-06-2024 Telephone encounter Note LVM with skilled nursing(primary number in account) for adjustment clerk to call back to schedule follow up appointment with Herber. [facility] 12-06-2024 Miscellaneous Notes LVM with skilled nursing(primary number in account) for adjustment clerk to call back to schedule follow up [...] sooner with provider. documented in this encounter [facility] 12-01-2024 Note [facility] 12-01-2024 Telephone encounter Note Images from the original note were not included. Faxed new insulin order to [facility] at fax #: [phone]. [facility] 12-01-2024 Miscellaneous Notes Images from the original note were not included. Faxed new insulin order to [facility] at fax #: [phone]. I have reviewed the pt's glucose log. [...] included. Patient's BGL documented in this encounter [facility] 12-01-2024 Note IMPRESSION: Sinus rhythm Abnormal R-wave progression, late transition Left ventricular hypertrophy Borderline prolonged QT interval Electronically Signed On 12-01-2024 00:32:34 EST by Aaron Burgos [facility] 11-30-2024 Note [facility] 11-28-2024 Telephone encounter Note I have reviewed the pt's glucose log. Based on interpretation of the FSBS data I recommend the following changes to the pt's antihyperglycemic regimen: Please increase Humulin u500 to 140 units three times daily before meals. Med rec updated: Yes [facility] 11-28-2024 Miscellaneous Notes I have reviewed [...] included. Patient's BGL documented in this encounter [facility] 11-28-2024 Telephone encounter Note Images from the original note were not included. Patients BGL [facility] 11-22-2024 Telephone encounter Note I have [...] until we ensure blood sugars remain stable. [facility] 11-22-2024 Telephone encounter Note Unable to reach Suri at to reschedule appt with Makayla Guerrero on 11/27/2024. Called again at [phone] and spoke to Quiana again. Rescheduled pt to 01/01/[address] [facility] will call if there is a problem with this date/time. [facility] 11-22-2024 Miscellaneous Notes Unable to reach Suri at to reschedule appt with Makayla Guerrero on 11/27/2024. Called again at [phone] and spoke to Quiana again. Rescheduled pt to 01/01/[address] [facility] will call if there is a problem with this date/time. documented in this encounter [facility] 11-21-2024 Telephone encounter Note Called the skilled nursing and spoke with the pts nurse nabil, [...] new logs in two weeks, she understood. [facility] 11-21-2024 Miscellaneous Notes Called the skilled nursing and spoke with the pts nurse nabil, [...] included. Patient's BGL documented in this encounter [facility] 11-21-2024 Telephone encounter Note Images from the original note were not included. Patient's BGL [facility] 11-20-2024 Telephone encounter Note Addendum completed. Sending message to provider as FYI, please indicate if/when patient needs fu with provider to review. Will forward to staff to schedule if indicated. Thank you. [facility] 11-20-2024 Miscellaneous Notes Addendum completed. Sending [...] sooner with provider. documented in this encounter [facility] 11-19-2024 Telephone encounter Note I have reviewed the pt's glucose log. Based on interpretation of the FSBS data I recommend the following changes to the pt's antihyperglycemic regimen: Blood sugars are variable with 5 doses recently held. Can we clarify if patient has been sick or had decreased appetite that caused recent change in insulin needs? [facility] Work Phone: 11-19-2024 Miscellaneous Notes I have [...] included. Patient's BGL documented in this encounter [facility] 11-15-2024 Telephone encounter Note Images from the original note were not included. Patient's BGL [facility] 11-14-2024 Telephone encounter Note Noted. Request emailed to radiology team. [facility] 11-14-2024 Miscellaneous Notes Noted. Request emailed to [...] sooner with provider. documented in this encounter [facility] 11-14-2024 History of Presen t illness Narrative Images from the original note were not included. Asuncion Valencia APRN-[facility] General Surgery Outpatient Post-Operative/Follow Up Office Note Patient ID: Will Jacinto [id number] y.o. 1965 This is a 59 [...] ENDOSCOPY N/A 06/29/2023 Dr Sergio Sibley at [facility]; no specimens WISDOM TOOTH EXTRACTION Medications Prior [...] No Stress: No Stress Concern Present (10/19/2024) [place] of Occupational Health - Occupational Stress Questionnaire Feeling of Stress : Only a little Social Connections: Unknown (10/19/2024) Social Connection and Isolation Panel [NHANES] Frequency of Communication with Friends and Family: Three times a week Frequency of Social Gatherings with Friends and Family: Once a week Attends Protestant Services: 1 to 4 times per year [...] 11/14/2024 12:47 PM documented in this encounter [facility] 11-13-2024 Telephone encounter Note Patient appeared [...] and/or have scheduled follow-up sooner with provider. [facility] 11-12-2024 Hospital Discharg e instructions JEREMY Hilliard CNP - 11/12/2024 11:44 PM EST The drain coming out after 3+ weeks is okay at this time CT and labs are unremarkable patient can follow-up in the surgery office as an outpatient. The following attachments cannot be sent through Care Everywhere.Gallstones Discharge Instructions ([place])documented in this encounter [facility] 11-12-2024 Emergency department Note Emergency Department Encounter [facility] ED Patient: Will Jacinto : 1965 Date [...] dictating provider for clarification.) Virgil Mederos MD [facility] Virgil Mederos MD 11/12/242219 documented in this encounter [facility] 11-12-2024 Physician Emergency department Note Emergency Department Encounter [facility] ED Patient: Will Jacinto : 1965 Date [...] clarification.) Virgil Mederos MD Acute Care [facility] Virgil Mederos MD 11/12/242219 [facility] [employer] Phone: 11-10-2024 History of Presen t illness Narrative Images from the original note were not included. Asuncion Valencia APRN-[facility] General Surgery Outpatient Post-Operative/Follow Up Office Note Patient ID: Will Jacinto [id number] y.o. 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, RLE Morbidly obese ([facility]) Muscle weakness Osteomyelitis ([facility]) Osteomyelitis (HCC) 2018 RLE Other lack of [...] ENDOSCOPY N/A 06/29/2023 Dr Sergio Sibley at [facility]; no specimens WISDOM TOOTH EXTRACTION Medications Prior [...] No Stress: No Stress Concern Present (10/19/2024) [place] of Occupational Health - Occupational Stress Questionnaire Feeling of Stress : Only a little Social Connections: Unknown (10/19/2024) Social Connection and Isolation Panel [NHANES] Frequency of Communication with Friends and Family: Three times a week Frequency of Social Gatherings with Friends and Family: Once a week Attends Protestant Services: 1 to 4 times per year [...] 11/10/2024 11:32 AM documented in this encounter [facility] 10-30-2024 Telephone encounter Note Released message to nurse [facility] 10-30-2024 Miscellaneous Notes Released message to nurse BG log reviewed. No changes to current meds. Send log as needed; otherwise, has appt 11/27 with Ana Maria. Please remind SNF to send BGL and MAR to visit. Thank you! Images from the original note were not included. Patient's BGL documented in this encounter [facility] 10-30-2024 Telephone encounter Note BG log reviewed. No changes to current meds. Send log as needed; otherwise, has appt 11/27 with Ana Maria. Please remind SNF to send BGL and MAR to visit. Thank you! [employer] Work Phone: 10-30-2024 Telephone encounter Note Images from the original note were not included. Patient's BGL [facility] 10-24-2024 Telephone encounter Note Shayy called back we scheduled an appointment with Ana Maria on 11/27/24 and another one on 03/27/25 with Thalia. [facility] 10-24-2024 Miscellaneous Notes Shayy called back we scheduled an appointment with Ana Maria on 11/27/24 and another one on 03/27/25 with Thalia. Called [place] [facility] at [phone] and spoke to Quiana who states that I need to to speak to Suri, and she is currently out of the office. Per Quiana, she will have [facility] call back to schedule. Direct phone number to the [place] office was given. Needs to be seen for follow up with any provider, will need ECF to arrange transportation so that patient can be seen in office ans no longer available to manage over the phone documented in this encounter [facility] 10-24-2024 Hospital Discharg e instructions Baldev Ortiz MD - 10/24/2024 12:53 PM EST Please return to the Emergency Room if you have dizziness, shortness of breath, falls, new or worsening symptoms. documented in this encounter [facility] 10-24-2024 Emergency department Note Pt placed on bedpan, urine sample collected and sent to lab. [facility] 10-24-2024 Emergency department Note Pt placed [...] Pt is DNR-CCA. documented in this encounter [facility] 10-24-2024 Emergency department Note Pt provided with sandwich and pop, ok per Dr Mixon [facility] 10-24-2024 Emergency department Note Per pt he is not having any blood in his urine, his gallbladder drain is newly placed (3 days ago), pt states the drainage has been the same in color since it was placed, denies pain, denies drainage to site. Pt states has no complaints other than concern for low BG and feeling cold. [facility] 10-24-2024 Emergency department Note Pt arrives by [facility] for blood in urine and change in mental status. Pt has chronic lewis and has blood present. BP elevated, BG 154 (low per SNF because pt is normally in 300 range). Pt is DNR-CCA. [facility] 10-24-2024 Telephone encounter Note Called [facility] at [phone] and spoke to Quiana who states that I need to to speak to Suri, and she is currently out of the office. Per Quiana, she will have [facility] call back to schedule. Direct phone number to the [place] office was given. [facility] 10-23-2024 Nurse Note Report called to Nabil GUILLORY at [facility]. [facility] 10-23-2024 Nurse Note Report called to Nabil GUILLORY at [facility]. Report called to [address] [place] [address] for transfer. Notified Lisa Lopes APRN and Dr. Thomas regarding patients BS. New orders placed. documented in this encounter [facility] 10-23-2024 Note Formatting of this n ote might be different from the original. Discharge med list transmitted to return back to [facility] via [facility] per T[facility] request. [facility] 10-23-2024 Note Formatting of this n ote might be different from the original. Discharge med list transmitted to return back to [facility] via [facility] per [facility] request. [facility] 10-23-2024 Miscellaneous Notes Discharge med list transmitted to return back to [facility] via [facility] per [facility] request. Asked by [facility] to set transport to [facility]. The BLS Vehicle you requested for Will Batista in unit/room [facility] [id number] on 10/23/2024 is scheduled to arrive at 2:30pm EST! [facility] is handling this ride and you can contact them at . Pt, nurse, unit sec, TCC, and facility informed of time. DC orders in and signed by Dr. Thomas. HOOP RIVETING MACHINE OPERATOR set up transport. [facility] tasked in [facility] to send DC info [facility] . DC back to F in [...] Maintained or Improved Outcome: Progressing Did update [facility] via [facility] that attending would like patient to return to their facility tomorrow on po antibiotics. Will have TCC coverage for tomorrow follow for reply. Patient is senior care at the facility and does not need auth to return. Care Management Progress Note Pt remains on 2E. Endo, ID, gen surg, and gastro following. Biliary drain in place, culture in process. Receiving IV ATB. Fecal occult stool positive. Discharge plan is back to [facility] when medically ready. He is a bedhold and will not need auth to return unless he goes back as skilled. manager division to follow and assist as needed. Length of Stay (Days): 2 GMLOS: 3.5 Problem: Potential for Compromised Skin Integrity Goal: Skin Integrity is Maintained or Improved Outcome: Progressing Problem: Urinary Incontinence Goal: Perineal skin integrity is maintained or improved Outcome: Progressing Sent updated notes to return back to [facility] via [facility] per TCC request. Await review and response regarding ability to accept. TCC notified. Referral placed to return back to [facility] via [facility] per TCC request. Await review and response regarding ability to accept. TCC notified. Care Managment Initial Assessment Date: 10/19/2024 Patient Name: Will Jacinto : 1965 Patient Information Source of Information: Patient Cognition/Language: WFL - Within Functional Limits Permission given to speak with patient rental sales representative/caregiver as indicated: Confirmation of Payer with patient/family: Payer Name: [place]: Confirmation of Primary Care Physician: Primary Caregiver: Other (Comment) (Facility staff) If assistance needed, confirmed caregiver ready, willing and able to care for patient at discharge: Confirmed with: Living Arrangements Current Residence: Number of Floors Number of Entry Steps: Bed/Bath Levels: Facility: [facility] Facility Name: [facility] Plan to Return: Yes Lives with: Other [...] Plan Patient expects to be discharged to: [facility] Discharge Planning Actions: Continue to follow Patient's Choice Rights and [employer] and Collaborative Relationships Disclosed as Indicated for Post-Acute Care: Interdisciplinary Team Engagement: Social Work Referral for: Additional Information: Pt admitted to for gall bladder inflammation. Met with pt at bedside, introduced self and explained role. Pt has insurance with RX coverage, active with PCP. He is a LTC resident at [facility] and would like to return to facility. Pt requires assistance with all ADLS. Requires a deedee for transfers. Tasked METAL WIRE COATING OPERATOR to send return referral to [facility]. Gen surg and ID following. Endocrinology consulted. Receiving IV ATB and fluids. NPO at this time. Pt to have biliary drain placed today. Fecal occult stool positive. Discharge plan will be to return to [facility] once medically ready. manager division to follow and assist as needed. Gill [...] improved Outcome: Progressing documented in this encounter [facility] 10-23-2024 Note Formatting of this n ote might be different from the original. Asked by [facility] to set transport to [facility]. The [employer] Vehicle you requested for Will M. in unit/room [place] [id number] on 10/23/2024 is scheduled to arrive at 2:30pm EST! [facility] is handling this ride and you can contact them at . Pt, nurse, unit sec, TCC, and facility informed of time. [facility] 10-23-2024 Note Formatting of this n ote might be different from the original. Asked by [facility] to set transport to [facility]. The [employer] Vehicle you requested for Will M. in unit/room [place] [id number] on 10/23/2024 is scheduled to arrive at 2:30pm EST! [facility] is handling this ride and you can contact them at . Pt, nurse, unit sec, TCC, and facility informed of time. [facility] 10-23-2024 History of Presen t illness Narrative Patient discharged before I was able to round on patient. Patient admitted to [facility] with acute cholecystitis and treated medically. Patient uses U500 130 units tidac and Lantus 47 units bid at home. Insulin doses are reduced due to hospitalization. Blood sugars reviewed and remain elevated. Recommendations: Discharge patient on home doses of: u500 130 units tidac, Lantus 47 units bid Images from the original note were not included. [facility] - Infectious Diseases Attending [...] 1511 Aerobic and Anaerobic Culture with Stain [[id number]] Bile In process Component Value No component results 10/19/2024 1508 10/19/2024 2159 Culture, Aerobic Bacteria with Gram Stain [[id number]] Bile Preliminary result Component Value Culture Culture in progress P Gram Stain Result Few Polymorphonuclear leukocytes per low power field P No organisms seen P 10/19/2024 1508 10/19/2024 1511 Anaerobic culture [[id number]] Bile In process Component Value No component results 10/19/2024 1352 10/20/2024 1147 Culture, Aerobic Bacteria with Gram Stain [[id number]] Bile from Gallbladder Preliminary result Component Value Culture No growth at 18-24 hours P Gram Stain Result Few Polymorphonuclear leukocytes per low power field P No organisms seen P 10/19/2024 1352 10/19/2024 1415 Aerobic and Anaerobic Culture with Stain [[id number]] Bile from Gallbladder In process Component Value No component results 10/19/2024 1352 10/19/2024 1415 Anaerobic culture [[id number]] Bile from Gallbladder In process Component Value No component results 10/19/2024 0155 10/19/2024 0207 Occult blood, stool [[id number]] (Abnormal) Stool from Per Rectum Final result Component Value Fecal occult blood Positive Abnormal 10/18/2024 2343 10/20/2024 0735 Urine culture [[id number]] Urine, Clean Catch Final result Component Value Urine Culture Insignificant growth based on current clinical guidelines Lines: PIV site ok Radiography/Echo/Other: US guided percutaneous peritoneal or retroperitoneal fluid collection drainage [[id number]] Collected: 10/19/24 1421 Order Status: Completed Updated: [...] advanced. Subcutaneous tract was dilated. An 8 Tajik drainage catheter advanced over the wire. The catheter was attached to a bag. A dressing was applied. Impression: Successful placement of a drainage catheter into the gallbladder using ultrasound guidance. Report Dictated on Electronically Signed By: Alfredito Baumann MD Electronically Signed Date/Time: 10/19/2024 2:22 PM EST US abdomen limited [[id number]] Collected: 10/18/242011 Order Status: Completed Updated: 10/18/242021 [...] PM EST CT abdomen pelvis w contrast [[id number]] Collected: 10/18/241904 Order Status: Completed Updated: 10/18/241913 [...] chest angiogram w and/or wo IV contrast [[id number]] Collected: 10/18/241856 Order Status: Completed Updated: 10/18/241912 [...] note were not included. [facility] Wound Care Progress Note Will Jacinto AGE: [...] ENDOSCOPY N/A 06/29/2023 Dr Sergio Sibley at [facility]; no specimens WISDOM TOOTH EXTRACTION FAMILY HISTORY [...] loss Fluid Accumulation: Moderate to Severe Extremities Tire Shop Manager Strength: Not Performed Nutrition Assessment: Pt [...] most recently 6.9% (10/19/24). Pt resides at [facility]. It seems that pt has [...] (kg): 53 kg Total Energy Requirements (kcals/day): 8377-9957 kcals (28-32 kcals/kg) Weight Used for Protein [...] lb) (02/11/24) % Weight Change (Calculated): 15.2 [place] Body Weight (lbs) (Calculated): 130 lbs [place] Body Weight (Kg) (Calculated): 59 kg % [place] Body Weight (Calculated): 256.9 % BMI (kg/m2) (Calculated): 53.9 Weight Adjustment For: Amputation % Weight Adjustment: 10.1 - AKA Total Adjusted Percentage (Calculated): 10.1 Adjusted [place] Body Weight (lbs) (Calculated): 116.9 lbs Adjusted [place] Body Weight (kg) (Calculated): 53.14 kg Adjusted [...] Continue current diet Fernanda Chappell RD Contact: *[phone] or via Secure Chat Hospitalist Progress Note 10/22/2024 Subjective: Admit Date: 10/18/2024 PCP: Jared Guzman Room#: [id number] A BRIEF HOSPITAL COURSE: Admitted for abdominal [...] (HCC) Anxiety disorder Bipolar 1 disorder ([facility]) Blood circulation, collateral Cellulitis chronic L lower leg COVID 12/08/2021 Depression Diabetes mellitus ([facility]) Type II, on insulin Disease of blood and blood forming organ Endometrial carcinoma ([facility]) 11/25/2020 Endometrial hyperplasia Foot ulcer ([facility]) Hx of blood clots RLE prior to amputation Hyperlipidemia Hypertension Lymphedema 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, RLE Morbidly obese ([facility]) Muscle weakness Osteomyelitis (HCC) Osteomyelitis ([facility]) 2019 RLE Other lack of coordination Other specified soft tissue disorders Other symbolic dysfunctions Schizophrenia ([facility]) Sleep apnea no CPAP Venous insufficiency LABS: [...] Admit Date: 10/18/2024 PCP: Jared Guzman Room#: [id number] A BRIEF HOSPITAL COURSE: Admitted for abdominal [...] day course - wok on DC with community case manager - am labs, replace lytes prn - PT/OT/CM/SW - delirium precautions: increase activity - DVT prophylaxis: enoxaparin and encourage ambulation Advance Directive: DNR-CCA Anticipated Discharge Extended Emergency Contact Information Primary Emergency Contact: Jovana Quesada (POA) Relation: Niece Secondary Emergency Contact: Carola Lubin Mobile Relation: Other Álvaro Thomas MD Division of Hospitalist Medicine [facility] [place] Images from the original note were not included. Attending Attestation [facility] - General Surgery Patient Name: [...] edema and trace pericholecystic fluid with (+)sonographic [place] sign -CT demonstrates distended gallbladder with suspected [...] the original note were not included. [facility] - Infectious Diseases Attending Progress [...] 1511 Aerobic and Anaerobic Culture with Stain [[id number]] Bile In process Component Value No component results 10/19/2024 1508 10/19/2024 2159 Culture, Aerobic Bacteria with Gram Stain [[id number]] Bile Preliminary result Component Value Culture Culture in progress P Gram Stain Result Few Polymorphonuclear leukocytes per low power field P No organisms seen P 10/19/2024 1508 10/19/2024 1511 Anaerobic culture [[id number]] Bile In process Component Value No component results 10/19/2024 1352 10/20/2024 1147 Culture, Aerobic Bacteria with Gram Stain [[id number]] Bile from Gallbladder Preliminary result Component Value Culture No growth at 18-24 hours P Gram Stain Result Few Polymorphonuclear leukocytes per low power field P No organisms seen P 10/19/2024 1352 10/19/2024 1415 Aerobic and Anaerobic Culture with Stain [[id number]] Bile from Gallbladder In process Component Value No component results 10/19/2024 1352 10/19/2024 1415 Anaerobic culture [[id number]] Bile from Gallbladder In process Component Value No component results 10/19/2024 0155 10/19/2024 0207 Occult blood, stool [[id number]] (Abnormal) Stool from Per Rectum Final result Component Value Fecal occult blood Positive Abnormal 10/18/2024 2343 10/20/2024 0735 Urine culture [[id number]] Urine, Clean Catch Final result Component Value Urine Culture Insignificant growth based on current clinical guidelines Lines: PIV site ok Radiography/Echo/Other: US guided percutaneous peritoneal or retroperitoneal fluid collection drainage [[id number]] Collected: 10/19/241420 Order Status: Completed Updated: 10/19/241422 [...] advanced. Subcutaneous tract was dilated. An 8 Tajik drainage catheter advanced over the wire. The catheter was attached to a bag. A dressing was applied. Impression: Successful placement of a drainage catheter into the gallbladder using ultrasound guidance. Report Dictated on Electronically Signed By: Alfredito Baumann MD Electronically Signed Date/Time: 10/19/2024 2:22 PM EST US abdomen limited [[id number]] Collected: 10/18/242011 Order Status: Completed Updated: 10/18/242021 [...] PM EST CT abdomen pelvis w contrast [[id number]] Collected: 10/18/241904 Order Status: Completed Updated: 10/18/241913 [...] chest angiogram w and/or wo IV contrast [[id number]] Collected: 10/18/241856 Order Status: Completed Updated: 10/18/241912 [...] absence of other toe(s), unspecified side ([facility]) Anxiety disorder Bipolar 1 disorder ([facility]) Blood circulation, collateral Cellulitis chronic L lower leg COVID 12/08/2021 Depression Diabetes mellitus ([facility]) Type II, on insulin Disease of blood and blood forming organ Endometrial carcinoma ([facility]) 11/25/2020 Endometrial hyperplasia Foot ulcer ([facility]) Hx of blood clots RLE prior to amputation Hyperlipidemia Hypertension Lymphedema 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 Room[facility]Bed: [facility] A Admission Date: 10/18/2024 Visit Date: 10/20/2024 Reason for Endocrine Consult: IDDM on u500 Provider/Team Requesting Consult: Shawna Estrada PCP: Jared Guzman Outpt Fur Storage Clerk: Yes - Dr Lee- VV 10/27/2023 ASSESSMENT: [...] bid Outpt Follow Up-- Dr Lee or THREAD SPINNER as available - message sent SUBJECTIVE/HPI: CHIEF COMPLAINT: Chief Complaint Patient presents with Abdominal Pain [facility] Pt presents with abd pain, diarrhea, chest pain. Pt presents aox4 speaking in full and complete sentences. Chest Pain Nausea Presented to ED after abdominal pain that started on Wednesday evening (10/17/2024) Found to have Acute Cholecyctitis that needs to be managed medically, patient is on u500 units at [facility] Type of DM: 2 Onset of [...] found for: CHOLHDLRATIO No results found for: [id number] Lab Results Component Value Date TSH 1.037 12/31/2023 Radiology reportsas per the Radiologist Radiology: POCT glucose meter Result Date: 10/19/2024 Performed by: [facility], [address] [place] [id number] CLIA ID: [id number] POCT glucose meter Result Date: 10/19/2024 Performed by: [facility], [address] [place] [address] CLIA ID: [id number] POCT glucose meter Result Date: 10/19/2024 Performed by: [facility], [address] [place] [address] CLIA ID: [id number] ECG 12 lead Sinus rhythm Left ventricular hypertrophy Anterior Q waves, possibly due to LVH Electronically Signed On 10-18-2024 23:06:53 EST by Sunitha Broja POCT glucose meter Result Date: 10/18/2024 Performed by: [facility], [address] [place] [address] CLIA ID: [id number] US abdomen limited Result Date: 10/18/2024 Patient [...] 10/18/2024 Patient Name: WILL JACINTO : 1965 [facility]#: [id number] Exam Date/Time: 10/18/2024 17:20 Procedure: CT CHEST [...] ENDOSCOPY N/A 06/29/2023 Dr Sergio Sibley at [facility]; no specimens WISDOM TOOTH EXTRACTION Allergy(ies): No [...] original note were not included. Attending Attestation [facility] - Surgery [facility] Patient Name: Will Jacinto [...] answered. Lilo Rizo MD General Surgery Pager #[phone] 10:55 AM 10/23/2024 GENERAL SURGERY Progress Note [...] leg COVID 12/08/2021 Depression Diabetes mellitus ([facility]) Type II, on insulin Disease of blood [...] Division of Hospitalist Medicine Acute care [facility] Images from the original note were not included. PHYSICAL THERAPY [facility] Name/MRN: Maria Luisa Jacinto ([id number]) Date: 10/19/2024 PT evaluation orders received and chart review completed. Pt is a group home-care resident at [facility]. Per documentation this admission and on previous admissions, this patient is non-ambulatory, requires a deedee lift for transfers to a w/c at baseline and does not complete bed mobility. No acute PT needs identified. Rec return to ECF at discharge. Sandra De Guzman, PT documented in this encounter [facility] 10-23-2024 Note Formatting of this n ote might be different from the original. DC orders in and signed by Dr. Thomas. [facility] set up transport. [facility] DC [facility] to [facility]CF in stable condition. . [facility] 10-23-2024 Note Formatting of this n ote might be different from the original. DC orders in and signed by Dr. Thomas. [facility] set up transport. [facility] tasked [facility] back to [facility]CF in stable condition. . [facility] 10-23-2024 Note [facility] 10-23-2024 Hospital course Narrative Discharge [...] advanced. Subcutaneous tract was dilated. An 8 Tajik drainage catheter advanced over the wire. The [...] Your Medications These medications were sent to [facility] [address] [place] [address] Hours: Wednesday to Wednesday 10 am to 6 pm amoxicillin-clavulanate 875-125 MG tablet DIET: Adult diet Regular; 4 carb choices (60 gm/meal); Low Fat (less than or equal to 50 gm/day); Low Fiber ACTIVITY: No restriction. COMPLEXITY OF FOLLOW UP: [x] Moderate Complexity: follow up within 7-14 calendar days (88975) [] Severe Complexity: follow up within 7 calendar days (90905) FOLLOW UP TESTING, PENDING RESULTS OR REFERRALS AT TRANSITIONAL CARE VISIT: [x] Yes [] No PENDING STUDIES: DISPOSITION: Skilled Facility FACILITY/HOME CARE AGENCY NAME: Follow up with Lilo Rizo MD [facility] [address] [facility] [phone] Schedule an appointment as soon as possible for a visit in 1 month(s) Drain follow up Jared Guzman [address] [facility] [address] Follow up in 1 week(s) [facility] Gastroenterology - [place] [address] [address] [facility] [address] Follow up for positive [...] 10/23/2024, 11:26 AM documented in this encounter [facility] 10-23-2024 Hospital Discharg e instructions Álvaro [...] Nurse: Ezio Dunlap RN Discharging Hospital Unit/Room#: B4-934/B4-864 A Discharging Unit Emergency Contact: Extended Emergency [...] ENDOSCOPY N/A 06/29/2023 Dr Sergio Sibley at [facility]; no specimens WISDOM TOOTH EXTRACTION Immunization History: [...] assistance Toileting Total assistance Feeding Total assistance Order Analyst Total assistance Med Delivery yes Wound Care [...] Status Date: Discharging to Facility/ Agency Name: [facility] Address:[address] [place] [address] Dialysis Facility (if applicable) Name: Address: Dialysis Schedule: Phone: 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 The individual is being admitted to a nursing facility directly from an [facility] or a unit of a [facility] that is not operated by or licensed by [facility] under section 5119.14 or 5160-3-15.1 5 The individual requires the level of services provided by a nursing facility for the condition for which he or she was treated in the hospital and, Physician Certification: I certify the above information and transfer of Will Jacinto is necessary for the continuing treatment of the diagnosis listed and that he requires prison facility for less than 30 days. Update Admission H&P: No change in H&P PHYSICIAN SIGNATURE: documented in this encounter [facility] 10-22-2024 Plan of care note Problem: Knowledge Deficit Goal: Patient/family/caregiver demonstrates understanding of disease process, treatment plan, medications, and discharge instructions Outcome: Progressing Problem: Potential for Compromised Skin Integrity Goal: Skin Integrity is Maintained or Improved Outcome: Progressing [facility] 10-22-2024 Plan of care note Problem: Knowledge Deficit Goal: Patient/family/caregiver demonstrates understanding of disease process, treatment plan, medications, and discharge instructions Outcome: Progressing Problem: Potential for Compromised Skin Integrity Goal: Skin Integrity is Maintained or Improved Outcome: Progressing [facility] 10-21-2024 Note Formatting of this n ote might be different from the original. Did update [facility] that attending would like patient to return to their facility tomorrow on po antibiotics. Will have TCC coverage for tomorrow follow for reply. Patient is senior care at the facility and does not need auth to return. [facility] 10-21-2024 Note Formatting of this n ote might be different from the original. Did update [facility] that attending would like patient to return to their facility tomorrow on po antibiotics. Will have TCC coverage for tomorrow follow for reply. Patient is senior care at the facility and does not need auth to return. [facility] 10-20-2024 Nurse Note Report called to [address] [place] [address] for transfer. [facility] 10-20-2024 Consult note Associated Order (s): IP WOUND CARE NURSE CONSULT TO EVAL [facility] Wound Care Prevention CONSULT Note Will [...] absence of other toe(s), unspecified side ([facility]) Anxiety disorder Bipolar 1 disorder ([facility]) Blood circulation, collateral Cellulitis chronic L lower leg COVID 12/08/2021 Depression Diabetes mellitus ([facility]) Type II, on insulin Disease of blood and blood forming organ Endometrial carcinoma ([facility]) 11/25/2020 Endometrial hyperplasia Foot ulcer ([facility]) Hx of blood clots RLE prior to amputation Hyperlipidemia Hypertension Lymphedema MDRO (multiple drug 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, RLE Morbidly obese ([facility]) Muscle weakness Osteomyelitis ([facility]) Osteomyelitis ([facility]) 2019 RLE Other lack of coordination Other specified soft tissue disorders Other symbolic dysfunctions Schizophrenia ([facility]) Sleep apnea no CPAP Venous insufficiency PAST SURGICAL HISTORY Past Surgical History: Procedure Laterality Date ABCESS DRAINAGE Right 09/09/2018 FOOT; ACH COLONOSCOPY 09/19/[address] Hyde DILATION AND CURETTAGE OF UTERUS 05/18/2019 HYSTEROSCOPY 12/23/2021 LEG AMPUTATION THROUGH KNEE Right 06/16/2019 UPPER GASTROINTESTINAL ENDOSCOPY N/A 06/29/2023 Dr Sergio Sibley at [facility]; no specimens WISDOM TOOTH EXTRACTION FAMILY HISTORY [...] Geronimo DO at 10/23/2024 1:39 PM EST [facility] [employer] Phone: 10-20-2024 Consult note Associated Order (s): IP WOUND CARE NURSE CONSULT TO EVAL [facility] Wound Care Prevention CONSULT Note Will M [...] absence of other toe(s), unspecified side ([facility]) Anxiety disorder Bipolar 1 disorder ([facility]) Blood circulation, collateral Cellulitis chronic L lower leg COVID 12/08/2021 Depression Diabetes mellitus ([facility]) Type II, on insulin Disease of blood and blood forming organ Endometrial carcinoma ([facility]) 11/25/2020 Endometrial hyperplasia Foot ulcer ([facility]) Hx of blood clots RLE prior to amputation Hyperlipidemia Hypertension Lymphedema 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, RLE Morbidly obese ([facility]) Muscle weakness Osteomyelitis ([facility]) Osteomyelitis ([facility]) 2019 RLE Other lack of coordination Other specified soft tissue disorders Other symbolic dysfunctions Schizophrenia ([facility]) Sleep apnea no CPAP Venous insufficiency PAST SURGICAL HISTORY Past Surgical History: Procedure Laterality Date ABCESS DRAINAGE Right 09/09/2018 FOOT; ACH COLONOSCOPY 09/19/[address] Hyde DILATION AND CURETTAGE OF UTERUS 05/18/2019 HYSTEROSCOPY 12/23/2021 LEG AMPUTATION THROUGH KNEE Right 06/16/2019 UPPER GASTROINTESTINAL ENDOSCOPY N/A 06/29/2023 Dr Sergio Sibley at [facility]; no specimens WISDOM TOOTH EXTRACTION FAMILY HISTORY [...] Jacinto : 1965 AGE: 58 y.o. Room/Bed: B2-254/[facility] A Admission Date: 10/18/2024 Visit Date: 10/19/2024 Reason for Endocrine Consult: IDDM on u500 Provider/Team Requesting Consult: Shawna Estrada PCP: Jared Guzman Outpt Fur Storage Clerk: Yes - Dr Lee- VV 10/27/2023 ASSESSMENT: [...] bid Outpt Follow Up-- Dr lee or THREAD SPINNER as available - message sent SUBJECTIVE/HPI: CHIEF COMPLAINT: Chief Complaint Patient presents with Abdominal Pain [facility]. Pt presents with abd pain, diarrhea, chest [...] found for: CHOLHDLRATIO No results found for: [id number] Lab Results Component Value Date TSH 1.037 12/31/2023 Radiology reportsas per the Radiologist Radiology: POCT glucose meter Result Date: 10/19/2024 Performed by: [facility], [address] [facility] [address] CLIA ID: [id number] POCT glucose meter Result Date: 10/19/2024 Performed by: [facility], [address] [facility] [place] [address] CLIA ID: [id number] POCT glucose meter Result Date: 10/19/2024 Performed by: [facility], [address] [facility] [place] [address] CLIA ID: [id number] ECG 12 lead Sinus rhythm Left ventricular hypertrophy Anterior Q waves, possibly due to LVH Electronically Signed On 10-18-2024 23:06:53 EST by Sunitha Borja POCT glucose meter Result Date: 10/18/2024 Performed by: [facility], [address] [facility] [address] CLIA ID: [id number] US abdomen limited Result Date: 10/18/2024 Patient [...] absence of other toe(s), unspecified side ([facility]) Anxiety disorder Bipolar 1 disorder ([facility]) Blood circulation, collateral Cellulitis chronic L lower leg COVID 12/08/2021 Depression Diabetes mellitus ([facility]) Type II, on insulin Disease of blood and blood forming organ Endometrial carcinoma ([facility]) 11/25/2020 Endometrial hyperplasia Foot ulcer ([facility]) Hx of blood clots RLE prior to amputation Hyperlipidemia Hypertension Lymphedema MDRO (multiple drug 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, RLE Morbidly obese ([facility]) Muscle weakness Osteomyelitis ([facility]) Osteomyelitis ([facility]) 2019 RLE Other lack of coordination Other specified soft tissue disorders Other symbolic dysfunctions Schizophrenia ([facility]) Sleep apnea no CPAP Venous insufficiency Past Surgical History: Past Surgical History: Procedure Laterality Date ABCESS DRAINAGE Right 09/09/2018 FOOT; ACH COLONOSCOPY 09/19/[address] Hyde DILATION AND CURETTAGE OF UTERUS 05/18/2019 HYSTEROSCOPY 12/23/2021 LEG AMPUTATION THROUGH KNEE Right 06/16/2019 UPPER GASTROINTESTINAL ENDOSCOPY N/A 06/29/2023 Dr Sergio Sibley at [facility]; no specimens WISDOM TOOTH EXTRACTION Allergy(ies): No [...] from the original note were not included. [facility] - Infectious Diseases Attending [...] (HCC) Anxiety disorder Bipolar 1 disorder ([facility]) Blood circulation, collateral Cellulitis chronic L lower leg COVID 12/08/2021 Depression Diabetes mellitus ([facility]) Type II, on insulin Disease of blood and blood forming organ Endometrial carcinoma ([facility]) 11/25/2020 Endometrial hyperplasia Foot ulcer ([facility]) Hx of blood clots RLE prior to amputation Hyperlipidemia Hypertension Lymphedema MDRO (multiple drug 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, RLE Morbidly obese ([facility]) Muscle weakness Osteomyelitis ([facility]) Osteomyelitis ([facility]) 2019 RLE Other lack of coordination Other specified soft tissue disorders Other symbolic dysfunctions Schizophrenia ([facility]) Sleep apnea no CPAP Venous insufficiency Past Surgical History: Past Surgical History: Procedure Laterality Date ABCESS DRAINAGE Right 09/09/2018 FOOT; ACH COLONOSCOPY 09/19/[address] Hyde DILATION AND CURETTAGE OF UTERUS 05/18/2019 HYSTEROSCOPY 12/23/2021 LEG AMPUTATION THROUGH KNEE Right 06/16/2019 UPPER GASTROINTESTINAL ENDOSCOPY N/A 06/29/2023 Dr Sergio Sibley at [facility]; no specimens WISDOM TOOTH EXTRACTION Current Medications: [...] file Stress: No Stress Concern Present (10/19/2024) [place] [facility] [employer] [facility] - Occupational Stress Questionnaire Feeling of Stress : Only a little Social Connections: Unknown (10/19/2024) Social Connection and Isolation Panel [NHANES] Frequency of Communication with Friends and Family: Three times a week Frequency of Social Gatherings with Friends and Family: Once a week Attends Protestant Services: 1 to 4 times per year [...] "COVID19" in the last 72 hours. 10/19/2024 379258 1415 Culture, Aerobic Bacteria with Gram Stain [[id number]] Bile from Gallbladder In process Component Value No component results 10/19/2024 40289212/20/2023 1415 Aerobic and Anaerobic Culture with Stain [[id number]] Bile from Gallbladder In process Component Value No component results 10/19/2024 91782912/20/2023 1415 Anaerobic culture [[id number]] Bile from Gallbladder In process Component Value No component results 10/19/2024 22896212/20/2023 0207 Occult blood, stool [[id number]] (Abnormal) Stool from Per Rectum Final result Component Value Fecal occult blood Positive Abnormal 10/18/2024 13585512/20/2023 0022 Urine culture [[id number]] Urine, Clean Catch In process Component Value No component results Lines: PIV site looked ok Radiography/Echo/Other: US guided percutaneous peritoneal or retroperitoneal fluid collection drainage [[id number]] Resulted: 10/19/24 1334 Order Status: Sent Updated: 10/19/24 1405 US abdomen limited [[id number]] Collected: 10/18/242011 Order Status: Completed Updated: 10/18/242021 [...] PM EST CT abdomen pelvis w contrast [[id number]] Collected: 10/18/241904 Order Status: Completed Updated: 10/18/241913 Narrative: [facility] 1965 [id number] Exam Date/Time: 10/18/2024 17:21 Procedure: CT ABDOMEN [...] chest angiogram w and/or wo IV contrast [[id number]] Collected: 10/18/241856 Order Status: Completed Updated: 10/18/241912 Narrative: Patient Name: WILL JACINTO : 1965 [facility]#: [id number] Exam Date/Time: 10/18/2024 17:20 Procedure: CT CHEST [...] original note were not included. Attending Attestation [facility] - Surgery [facility] Patient Name: Will Jacinto [...] answered. Lilo Rizo MD General Surgery Pager #[phone] 1:56 PM 10/19/2024 Department of General Surgery [...] (HCC) Anxiety disorder Bipolar 1 disorder ([facility]) Blood circulation, collateral Cellulitis chronic L lower [...] tissue disorders Other symbolic dysfunctions Schizophrenia ([facility]) Sleep apnea no CPAP Venous insufficiency Past Surgical History: Past Surgical History: Procedure Laterality Date ABCESS DRAINAGE Right 09/09/2018 FOOT; ACH COLONOSCOPY 09/19/[address] Hyde DILATION AND CURETTAGE OF UTERUS 05/18/2019 HYSTEROSCOPY 12/23/2021 LEG AMPUTATION THROUGH KNEE Right 06/16/2019 UPPER GASTROINTESTINAL ENDOSCOPY N/A 06/29/2023 Dr Sergio Sibley at [facility]; no specimens WISDOM TOOTH EXTRACTION Current Medications: [...] file Stress: No Stress Concern Present (10/19/2024) [place] [employer] [facility] - Occupational Stress Questionnaire Feeling of Stress : Only a little Social Connections: Unknown (10/19/2024) Social Connection and Isolation Panel [NHANES] Frequency of Communication with Friends and Family: Three times a week Frequency of Social Gatherings with Friends and Family: Once a week Attends Protestant Services: 1 to 4 times per year [...] EST Result History US abdomen limited (Order #[id number]) on 10/18/2024 - Order Result History Report [...] data. No Anne risk assessment data. No TREKKING GUIDE Request ID assessment data. No [facility] dining room server ID assessment data. Breast Cancer Risk Navigation Events None Signed by Signed Time Phone Pager Joel Haddad MD 10/18/2024 20:21 Exam Information Status Exam Begun Exam Ended Final 10/18/2024 19:36 10/18/2024 20:00 External Results Report Open External Results Report Encounter View Encounter Study Details Open Study Details Order Transmittal Tracking US abdomen limited (Order #[id number]) on 10/18/24 Order Report US abdomen limited (Order #[id number]) on 10/18/24 CT abdomen pelvis w contrast Status: Final result Link to Procedure Log Procedure Log Orders Requiring a Screening Form Procedure Order Status Order ID Accession Number Form Status CT abdomen pelvis w contrast Completed [id number] Created PACS Images Show images for CT [...] History CT abdomen pelvis w contrast (Order #[id number]) on 10/18/2024 - Order Result History Report [...] data. No Anne risk assessment data. No TREKKING GUIDE Request ID assessment data. No TREKKING GUIDE dining room server ID assessment data. Breast Cancer Risk [...] Tracking CT abdomen pelvis w contrast (Order #[id number]) on 10/18/[address] abdomen pelvis w contrast (Order #[id number]) on 10/18/24 CBC: Recent Labs 10/18/24 1640 [...] Wednesday-Wednesday After hours, please contact physician communications engineer. Associated Order(s): Inpatient consult to Gastroenterology Images [...] ENDOSCOPY N/A 06/29/2023 Dr Sergio Sibley at [facility]; no specimens WISDOM TOOTH EXTRACTION FAMILY HISTORY: [...] @IMAGES@ @RISRSLT@ POCT glucose meter Performed by: [facility], [address] [place] [address] CLIA ID: [id number] @[facility]@ @[facility]@ abdomen limited Final Result 1. Cholestasis, [...] provider for clarification.) documented in this encounter [facility] 10-20-2024 Note Formatting of this n ote might be different from the original. Care Management Progress Note Pt remains on 2E. Endo, ID, gen surg, and gastro following. Biliary drain in place, culture in process. Receiving IV ATB. Fecal occult stool positive. Discharge plan is back to [facility] when medically ready. He is a bedhold and will not need auth to return unless he goes back as skilled. manager division to follow and assist as needed. Length of Stay (Days): 2 GMLOS: 3.5 [facility] 10-20-2024 Note Formatting of this n ote might be different from the original. Care Management Progress Note Pt remains on 2E. Endo, ID, gen surg, and gastro following. Biliary drain in place, culture in process. Receiving IV ATB. Fecal occult stool positive. Discharge plan is back to [facility] when medically ready. He is a bedhold and will not need auth to return unless he goes back as skilled. manager division to follow and assist as needed. Length of Stay (Days): 2 GMLOS: 3.5 [facility] 10-20-2024 Note Problem: Potential f or Compromised Skin Integrity Goal: Skin Integrity is Maintained or Improved Outcome: Progressing Problem: Urinary Incontinence Goal: Perineal skin integrity is maintained or improved Outcome: Progressing [facility] 10-20-2024 Plan of care note Problem: Potential for Compromised Skin Integrity Goal: Skin Integrity is Maintained or Improved Outcome: Progressing Problem: Urinary Incontinence Goal: Perineal skin integrity is maintained or improved Outcome: Progressing [facility] 10-20-2024 Nurse Note Notified Lisa Lopes APRN and Dr. Thomas regarding patients BS. New orders placed. [facility] 10-20-2024 Note Formatting of this n ote might be different from the original. Sent updated notes to return back to [facility] via [facility] per TCC request. Await review and response regarding ability to accept. TCC notified. [facility] 10-20-2024 Note Formatting of this n ote might be different from the original. Sent updated notes to return back to [facility] via [facility] per TCC request. Await review and response regarding ability to accept. TCC notified. [facility] 10-19-2024 Telephone encounter Note Needs to be seen for follow up with any provider, will need ECF to arrange transportation so that patient can be seen in office ans no longer available to manage over the phone [facility] 10-19-2024 Miscellaneous Notes Needs to be seen for follow up with any provider, will need ECF to arrange transportation so that patient can be seen in office ans no longer available to manage over the phone documented in this encounter [facility] 10-19-2024 Note Formatting of this n ote might be different from the original. Referral placed to return back to [facility] via [facility] per TCC request. Await review and response regarding ability to accept. TCC notified. [facility] 10-19-2024 Note Formatting of this n ote might be different from the original. Referral placed to return back to [facility] via [facility] per TCC request. Await review and response regarding ability to accept. TCC notified. [facility] 10-19-2024 Note Referral placed to r marilynurn back to [facility] via [facility] per TCC request. Await review and response regarding ability to accept. TCC notified. [facility] 10-19-2024 Note Formatting of this n ote might be different from the original. Care Managment Initial Assessment Date: 10/19/2024 Patient Name: Will Jacinto : 1965 Patient Information Source of Information: Patient Cognition/Language: WFL - Within Functional Limits Permission given to speak with patient rental sales representative/caregiver as indicated: Confirmation of Payer with patient/family: Payer Name: : Confirmation of Primary Care Physician: Primary Caregiver: Other (Comment) (Facility staff) If assistance needed, confirmed caregiver ready, willing and able to care for patient at discharge: Confirmed with: Living Arrangements Current Residence: Number of Floors Number of Entry Steps: Bed/Bath Levels: Facility: [facility] Facility Name: [facility] Plan to Return: Yes Lives with: Other [...] Plan Patient expects to be discharged to: [facility] Discharge Planning Actions: Continue to follow Patient's Choice Rights and [employer] and Collaborative Relationships Disclosed as Indicated for Post-Acute Care: Interdisciplinary Team Engagement: Social Work Referral for: Additional Information: Pt admitted to for gall bladder inflammation. Met with pt at bedside, introduced self and explained role. Pt has insurance with RX coverage, active with PCP. He is a LTC resident at [facility] and would like to return to facility. Pt requires assistance with all ADLS. Requires a deedee for transfers. Tasked METAL WIRE COATING OPERATOR to send return referral to [facility]. Gen surg and ID following. Endocrinology consulted. Receiving IV ATB and fluids. NPO at this time. Pt to have biliary drain placed today. Fecal occult stool positive. Discharge plan will be to return to [facility] once medically ready. manager division to follow and assist as needed. Gill Brown RN [facility] 10-19-2024 Note Formatting of this n ote might be different from the original. Care Managment Initial Assessment Date: 10/19/2024 Patient Name: Will Jacinto : 1965 Patient Information Source of Information: Patient Cognition/Language: WFL - Within Functional Limits Permission given to speak with patient rental sales representative/caregiver as indicated: Confirmation of Payer with patient/family: Payer Name: [place]: Confirmation of Primary Care Physician: Primary Caregiver: Other (Comment) (Facility staff) If assistance needed, confirmed caregiver ready, willing and able to care for patient at discharge: Confirmed with: Living Arrangements Current Residence: Number of Floors Number of Entry Steps: Bed/Bath Levels: Facility: [facility] Facility Name: [facility] Plan to Return: Yes Lives with: Other [...] Plan Patient expects to be discharged to: [facility] Discharge Planning Actions: Continue to follow Patient's Choice Rights and [employer] and Collaborative Relationships Disclosed as Indicated for Post-Acute Care: Interdisciplinary Team Engagement: Social Work Referral for: Additional Information: Pt admitted to for gall bladder inflammation. Met with pt at bedside, introduced self and explained role. Pt has insurance with RX coverage, active with PCP. He is a LTC resident at [facility] and would like to return to facility. Pt requires assistance with all ADLS. Requires a deedee for transfers. Tasked METAL WIRE COATING OPERATOR to send return referral to [facility]. Gen surg and ID following. Endocrinology consulted. Receiving IV ATB and fluids. NPO at this time. Pt to have biliary drain placed today. Fecal occult stool positive. Discharge plan will be to return to [facility] once medically ready. manager division to follow and assist as needed. Gill Brown RN [facility] 10-19-2024 Consult note Associated Order (s): IP CONSULT TO ENDOCRINOLOGY Department of Internal Medicine Division of Endocrinology, Diabetes, & Metabolism Endocrinology Note Patient Name: Will Jacinto : 1965 AGE: 58 y.o. Room/Bed: [facility] A Admission Date: 10/18/2024 Visit Date: 10/19/2024 Reason for Endocrine Consult: IDDM on u500 Provider/Team Requesting Consult: Shawna Estrada PCP: Jared Guzman Outpt Fur Storage Clerk: Yes - Dr Lee- VV 10/27/2023 ASSESSMENT: [...] bid Outpt Follow Up-- Dr lee or THREAD SPINNER as available - message sent SUBJECTIVE/HPI: CHIEF COMPLAINT: Chief Complaint Patient presents with Abdominal Pain Pt presents to er from [facility]. Pt presents with abd pain, diarrhea, chest pain. Pt presents aox4 speaking in full and complete sentences. Chest Pain Nausea Presented to ED after abdominal pain that started on Wednesday evening (10/17/2024) Found to have Acute Cholecyctitis that needs to be managed medically, patient is on u500 units at [facility] Type of DM: 2 Onset of [...] found for: CHOLHDLRATIO No results found for: [id number] Lab Results Component Value Date TSH 1.037 12/31/2023 Radiology reportsas per the Radiologist Radiology: POCT glucose meter Result Date: 10/19/2024 Performed by: Nati Bustos, [address] [place] [id number] CLIA ID: [id number] POCT glucose meter Result Date: 10/19/2024 Performed by: Nati Bustos, [address] [place] [id number] CLIA ID: [id number] POCT glucose meter Result Date: 10/19/2024 Performed by: Nati Bustos, [address] [facility] [address] CLIA ID: [id number] ECG 12 lead Sinus rhythm Left ventricular hypertrophy Anterior Q waves, possibly due to LVH Electronically Signed On 10-18-2024 23:06:53 EST by Sunitha Borja POCT glucose meter Result Date: 10/18/2024 Performed by: Nati Yaritza Lab, [address] [facility] [address] CLIA ID: [id number] US abdomen limited Result Date: 10/18/2024 Patient [...] (HCC) Anxiety disorder Bipolar 1 disorder ([facility]) Blood circulation, collateral Cellulitis chronic L lower leg COVID 12/08/2021 Depression Diabetes mellitus ([facility]) Type II, on insulin Disease of blood and blood forming organ Endometrial carcinoma ([facility]) 11/25/2020 Endometrial hyperplasia Foot ulcer ([facility]) Hx of blood clots RLE prior to amputation Hyperlipidemia Hypertension Lymphedema 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, RLE Morbidly obese ([facility]) Muscle weakness Osteomyelitis (HCC) Osteomyelitis (HCC) 2019 RLE Other lack of coordination Other specified soft tissue disorders Other symbolic dysfunctions Schizophrenia ([facility]) Sleep apnea no CPAP Venous insufficiency Past Surgical History: Past Surgical History: Procedure Laterality Date ABCESS DRAINAGE Right 09/09/2018 FOOT; ACH COLONOSCOPY 09/19/[address] Hyde DILATION AND CURETTAGE OF UTERUS 05/18/2019 HYSTEROSCOPY 12/23/2021 LEG AMPUTATION THROUGH KNEE Right 06/16/2019 UPPER GASTROINTESTINAL ENDOSCOPY N/A 06/29/2023 Dr Sergio Sibley at [facility]; no specimens WISDOM TOOTH EXTRACTION Allergy(ies): No [...] Lee MD at 10/20/2024 1:24 PM EST [facility] 10-19-2024 Consult note Associated Order (s): IP CONSULT TO INFECTIOUS DISEASES Images from the original note were not included. [facility] - Infectious Diseases Attending [...] ENDOSCOPY N/A 06/29/2023 Dr Sergio Sibley at [facility]; no specimens WISDOM TOOTH EXTRACTION Current Medications: [...] file Stress: No Stress Concern Present (10/19/2024) [employer] [place] [facility] [employer] - Occupational Stress Questionnaire Feeling of Stress : Only a little Social Connections: Unknown (10/19/2024) Social Connection and Isolation Panel [NHANES] Frequency of Communication with Friends and Family: Three times a week Frequency of Social Gatherings with Friends and Family: Once a week Attends Protestant Services: 1 to 4 times per year [...] "COVID19" in the last 72 hours. 10/19/2024 74668912/20/2023 1415 Culture, Aerobic Bacteria with Gram Stain [[id number]] Bile from Gallbladder In process Component Value No component results 10/19/2024 66940812/20/2023 1415 Aerobic and Anaerobic Culture with Stain [[id number]] Bile from Gallbladder In process Component Value No component results 10/19/2024 38211712/20/2023 1415 Anaerobic culture [[id number]] Bile from Gallbladder In process Component Value No component results 10/19/2024 76456112/20/2023 0207 Occult blood, stool [[id number]] (Abnormal) Stool from Per Rectum Final result Component Value Fecal occult blood Positive Abnormal 10/18/2024 82209512/20/2023 0022 Urine culture [[id number]] Urine, Clean Catch In process Component Value No component results Lines: PIV site looked ok Radiography/Echo/Other: US guided percutaneous peritoneal or retroperitoneal fluid collection drainage [[id number]] Resulted: 10/19/24 1334 Order Status: Sent Updated: 10/19/24 1405 US abdomen limited [[id number]] Collected: 10/18/242011 Order Status: Completed Updated: 10/18/242021 [...] PM EST CT abdomen pelvis w contrast [[id number]] Collected: 10/18/241904 Order Status: Completed Updated: 10/18/241913 [...] chest angiogram w and/or wo IV contrast [[id number]] Collected: 10/18/241856 Order Status: Completed Updated: 10/18/241912 Narrative: Patient Name: WILL JACINTO : 1965 [facility]#: [id number] Exam Date/Time: 10/18/2024 17:20 Procedure: CT CHEST [...] benefits, and consideration of use of antimicrobials. [facility] 10-19-2024 Plan of care note Problem: [...] integrity is maintained or improved Outcome: Progressing [facility] 10-19-2024 Consult note Associated Order (s): IP CONSULT TO GENERAL SURGERY Images from the original note were not included. Attending Attestation [facility] - Surgery [facility] Phys[facility] Surgery Patient Name: Will Jacinto [...] answered. Lilo Rizo MD General Surgery Pager #[phone] 1:56 PM 10/19/2024 Department of General Surgery [...] absence of other toe(s), unspecified side ([facility]) Anxiety disorder Bipolar 1 disorder ([facility]) Blood circulation, collateral Cellulitis chronic L lower leg COVID 12/08/2021 Depression Diabetes mellitus ([facility]) Type II, on insulin Disease of blood and blood forming organ Endometrial carcinoma ([facility]) 11/25/2020 Endometrial hyperplasia Foot ulcer ([facility]) Hx of blood clots RLE prior to amputation Hyperlipidemia Hypertension Lymphedema MDRO (multiple drug 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, RLE Morbidly obese ([facility]) Muscle weakness Osteomyelitis (HCC) Osteomyelitis ([facility]) 2019 RLE Other lack of coordination Other specified soft tissue disorders Other symbolic dysfunctions Schizophrenia ([facility]) Sleep apnea no CPAP Venous insufficiency Past Surgical History: Past Surgical History: Procedure Laterality Date ABCESS DRAINAGE Right 09/09/2018 FOOT; ACH COLONOSCOPY 09/19/[address] Hyde DILATION AND CURETTAGE OF UTERUS 05/18/2019 HYSTEROSCOPY 12/23/2021 LEG AMPUTATION THROUGH KNEE Right 06/16/2019 UPPER GASTROINTESTINAL ENDOSCOPY N/A 06/29/2023 Dr Sergio Sibley at [facility]; no specimens WISDOM TOOTH EXTRACTION Current Medications: [...] file Stress: No Stress Concern Present (10/19/2024) [employer] [place] [employer] - Occupational Stress Questionnaire Feeling of Stress : Only a little Social Connections: Unknown (10/19/2024) Social Connection and Isolation Panel [NHANES] Frequency of Communication with Friends and Family: Three times a week Frequency of Social Gatherings with Friends and Family: Once a week Attends Protestant Services: 1 to 4 times per year [...] Impression Patient Name: WILL JACINTO : 1965 [facility]#: [id number] Exam Date/Time: 10/18/2024 19:36 Procedure: US ABDOMEN [...] EST Result History US abdomen limited (Order #[id number]) on 10/18/2024 - Order Result History Report [...] data. No Anne risk assessment data. No [facility] Request ID assessment data. No [facility] dining room server ID assessment data. Breast Cancer Risk Navigation Events None Signed by Signed Time Phone Pager Joel Haddad MD 10/18/2024 20:21 Exam Information Status Exam Begun Exam Ended Final 10/18/2024 19:36 10/18/2024 20:00 External Results Report Open External Results Report Encounter View Encounter Study Details Open Study Details Order Transmittal Tracking US abdomen limited (Order #[id number]) on 10/18/24 Order Report US abdomen limited (Order #[id number]) on 10/18/24 CT abdomen pelvis w contrast Status: Final result Link to Procedure Log Procedure Log Orders Requiring a Screening Form Procedure Order Status Order ID Accession Number Form Status CT abdomen pelvis w contrast Completed [id number] Created PACS Images Show images for CT [...] History CT abdomen pelvis w contrast (Order #[id number]) on 10/18/2024 - Order Result History Report [...] data. No Anne risk assessment data. No [employer] Request ID assessment data. No [employer] dining room server ID assessment data. Breast Cancer Risk [...] Tracking CT abdomen pelvis w contrast (Order #[id number]) on 10/18/[address] abdomen pelvis w contrast (Order #[id number]) on 10/18/24 CBC: Recent Labs 10/18/24 1640 [...] Wednesday-Wednesday After hours, please contact physician communications engineer. [facility] 10-19-2024 Consult note Associated Order (s): [...] absence of other toe(s), unspecified side ([facility]) Anxiety disorder Bipolar 1 disorder ([facility]) Blood circulation, collateral Cellulitis chronic L lower leg COVID 12/08/2021 Depression Diabetes mellitus ([facility]) Type II, on insulin Disease of blood and blood forming organ Endometrial carcinoma (HCC) 11/25/2020 Endometrial hyperplasia Foot ulcer ([facility]) Hx of blood clots RLE prior to amputation Hyperlipidemia Hypertension Lymphedema 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, RLE Morbidly obese ([facility]) Muscle weakness Osteomyelitis (HCC) Osteomyelitis (HCC) 2019 RLE Other lack of coordination Other specified soft tissue disorders Other symbolic dysfunctions Schizophrenia ([facility]) Sleep apnea no CPAP Venous insufficiency PAST SURGICAL HISTORY: Past Surgical History: Procedure Laterality Date ABCESS DRAINAGE Right 09/09/2018 FOOT; ACH COLONOSCOPY 09/19/[address] Hyde DILATION AND CURETTAGE OF UTERUS 05/18/2019 HYSTEROSCOPY 12/23/2021 LEG AMPUTATION THROUGH KNEE Right 06/16/2019 UPPER GASTROINTESTINAL ENDOSCOPY N/A 06/29/2023 Dr Sergio Sibley at [facility]; no specimens WISDOM TOOTH EXTRACTION FAMILY HISTORY: [...] mg, 650 mg, Rectal, q6h PRN, Grace cAkerman MD amLODIPine (Norvasc) tablet 10 mg, 10 [...] 5 % infusion, 100 mL/hr, IntraVENous, PRN, rGace Ackerman MD dextrose 50 % solution 12.5 [...] POCT glucose meter Performed by: Nati Vigil [facility], [address] [place] [id number] CLIA ID: [id number] [facility]@ @[facility]@ abdomen limited Final Result 1. Cholestasis, [...] to contact the dictating provider for clarification.) [employer] Work Phone: 10-18-2024 History and physical note [...] ENDOSCOPY N/A 06/29/2023 Dr Sergio Sibley at [facility]; no specimens WISDOM TOOTH EXTRACTION Social History: [...] - Date - 10/20/24 - Location - [facility] (Non-Skilled) - Pending the following [...] - DO NOT do CPR, intubation] [_] [DNR-ANALYTICS LEADER - Comfort care only] [_] DNR form [...] Grace Ackerman MD Division of Hospitalist Medicine [facility] [employer] Work Phone: 10-18-2024 Note [facility] 10-18-2024 History and physical note [...] (HCC) Anxiety disorder Bipolar 1 disorder ([facility]) Blood circulation, collateral Cellulitis chronic L lower leg COVID 12/08/2021 Depression Diabetes mellitus (HCC) Type II, on insulin Disease of blood and blood forming organ Endometrial carcinoma (HCC) 11/25/2020 Endometrial hyperplasia Foot ulcer ([facility]) Hx of blood clots RLE prior to [...] - Date - 10/20/24 - Location - [facility] (Non-Skilled) - Pending the following [...] - DO NOT do CPR, intubation] [_] [DNR-ANALYTICS LEADER - Comfort care only] [_] DNR form [...] Grace Ackerman MD Division of Hospitalist Medicine [facility] documented in this encounter [facility] 10-18-2024 Emergency department Note EKG at bedside [facility] 10-18-2024 Emergency department Note EKG at bedside EKG called EMERGENCY DEPARTMENT ENCOUNTER Pt Name: Maria Luisa Jacinto Birthdate 1965 Date of evaluation: 10/18/2024 ED Provider: Dontrell Woodall DO CHIEF COMPLAINT Chief Complaint Patient presents with Abdominal Pain [facility] Pt presents with abd pain, diarrhea, chest [...] absence of other toe(s), unspecified side ([facility]) Anxiety disorder Bipolar 1 disorder ([facility]) Blood circulation, collateral Cellulitis chronic L lower leg COVID 12/08/2021 Depression Diabetes mellitus ([facility]) Type II, on insulin Disease of blood and blood forming organ Endometrial carcinoma ([facility]) 11/25/2020 Endometrial hyperplasia Foot ulcer ([facility]) Hx of blood clots RLE prior to amputation Hyperlipidemia Hypertension Lymphedema 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, RLE Morbidly obese ([facility]) Muscle weakness Osteomyelitis ([facility]) Osteomyelitis ([facility]) 2019 RLE Other lack of coordination Other specified soft tissue disorders Other symbolic dysfunctions Schizophrenia ([facility]) Sleep apnea no CPAP Venous insufficiency SURGICAL HISTORY Past Surgical History: Procedure Laterality Date ABCESS DRAINAGE Right 09/09/2018 FOOT; ACH COLONOSCOPY 09/19/[address] Hyde DILATION AND CURETTAGE OF UTERUS 05/18/2019 HYSTEROSCOPY 12/23/2021 LEG AMPUTATION THROUGH KNEE Right 06/16/2019 UPPER GASTROINTESTINAL ENDOSCOPY N/A 06/29/2023 Dr Sergio Sibley at [facility]; no specimens WISDOM TOOTH EXTRACTION CURRENT MEDICATIONS [...] Culture. Procedure Abnormality Status --------- ------ Complete Urinalysis[[id number]] Please view results for these tests on [...] Response: Oriented Best Motor Response: Follows commands [place] Coma Scale Score: 15 This is a [...] DO 10/18/241935 Pt presents to er from [facility]. Pt presents with abd pain, diarrhea, chest pain. Pt presents aox4 speaking in full and complete sentences. documented in this encounter [facility] 10-18-2024 Emergency department Note EKG called [facility] 10-18-2024 Emergency department Triage note Pt presents to er from [facility]. Pt presents with abd pain, diarrhea, chest pain. Pt presents aox4 speaking in full and complete sentences. [facility] 10-18-2024 Physician Emergency department Note EMERGENCY DEPARTMENT ENCOUNTER Pt Name: Maria Luisa Jacinto Birthdate 1965 Date of evaluation: 10/18/2024 ED Provider: Dontrell Woodall DO CHIEF COMPLAINT Chief Complaint Patient presents with Abdominal Pain Pt presents to er from [facility]. Pt presents with abd pain, diarrhea, [...] absence of other toe(s), unspecified side ([facility]) Anxiety disorder Bipolar 1 disorder ([facility]) Blood circulation, collateral Cellulitis chronic L lower leg COVID 12/08/2021 Depression Diabetes mellitus ([facility]) Type II, on insulin Disease of blood and blood forming organ Endometrial carcinoma ([facility]) 11/25/2020 Endometrial hyperplasia Foot ulcer ([facility]) Hx of blood clots RLE prior to amputation Hyperlipidemia Hypertension Lymphedema 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, RLE Morbidly obese ([facility]) Muscle weakness Osteomyelitis (HCC) Osteomyelitis ([facility]) 2019 RLE Other lack of coordination Other specified soft tissue disorders Other symbolic dysfunctions Schizophrenia ([facility]) Sleep apnea no CPAP Venous insufficiency SURGICAL HISTORY Past Surgical History: Procedure Laterality Date ABCESS DRAINAGE Right 09/09/2018 FOOT; ACH COLONOSCOPY 09/19/[address] Hyde DILATION AND CURETTAGE OF UTERUS 05/18/2019 HYSTEROSCOPY 12/23/2021 LEG AMPUTATION THROUGH KNEE Right 06/16/2019 UPPER GASTROINTESTINAL ENDOSCOPY N/A 06/29/2023 Dr Sergio Sibley at [facility]; no specimens WISDOM TOOTH EXTRACTION CURRENT MEDICATIONS [...] Culture. Procedure Abnormality Status --------- ------ Complete Urinalysis[[id number]] Please view results for these tests on [...] mL (100 mL IntraVENous Given 10/18/24 1806) [place] Coma Scale Best Eye Response: Spontaneous Best Verbal Response: Oriented Best Motor Response: Follows commands [place] Coma Scale Score: 15 This is a [...] Emergency Medicine Provider Dontrell Woodall DO 10/18/241935 [employer] 09-20-2024 Telephone encounter Note Faxed recommendation to [facility]. Thank you! [facility] 09-20-2024 Miscellaneous Notes Faxed recommendation to [facility]. Thank you! Very high doses with variability and history severe hypoglycemia- would not change doses for now Images from the original note were not included. Patient's BGL documented in this encounter [facility] 09-19-2024 Telephone encounter Note Very high doses with variability and history severe hypoglycemia- would not change doses for now [facility] Phone: 09-19-2024 Telephone encounter Note Images from the original note were not included. Patient's BGL [facility] 09-13-2024 Telephone encounter Note [facility] [phone] [facility] 09-13-2024 Miscellaneous Notes [facility]axed info. [facility]. [phone] Keep doses the same for now thank you Images from the original note were not included. Patient's BGL documented in this encounter [facility] 09-11-2024 Telephone encounter Note Keep doses the same for now thank you [employer] Phone: 09-11-2024 Miscellaneous Notes Keep doses the same for now thank you Images from the original note were not included. Patient's BGL documented in this encounter [facility] 09-11-2024 Telephone encounter Note Images from the original note were not included. Patient's BGL [facility] 08-09-2024 Miscellaneous Notes There's a more recent BGL that you also advised no changes. I faxed over recommendation to [facility]. Thank you! Please keep doses the same thank you Images from the original note were not included. Patient's BGL documented in this encounter [facility] 08-09-2024 Telephone encounter Note There's a more recent BGL that you also advised no changes. I faxed over recommendation to [facility]. Thank you! [facility] 08-09-2024 Telephone encounter Note Faxed recommendation to [facility]. Thank you! [facility] 08-09-2024 Miscellaneous Notes Faxed recommendation to [facility]. Thank you! Somewhat improved; would not make any changes at this point thank you Images from the original note were not included. Patient's BGL documented in this encounter [facility] 08-08-2024 Telephone encounter Note Somewhat improved; would not make any changes at this point thank you [employer] [employer] Phone: 08-08-2024 Miscellaneous Notes Somewhat improved; would not make any changes at this point thank you Images from the original note were not included. Patient's BGL documented in this encounter [facility] 08-08-2024 Telephone encounter Note Images from the original note were not included. Patient's BGL [facility] 08-04-2024 Telephone encounter Note Please keep doses the same thank you [facility] Phone: 08-04-2024 Miscellaneous Notes Please keep doses the same thank you Images from the original note were not included. Patient's BGL documented in this encounter [facility] 08-03-2024 Telephone encounter Note Images from the original note were not included. Patient's BGL [facility] 07-18-2024 Note Addended by: RADHA BUSBY on: 07/18/2024 02:17 PM Modules accepted: Orders [facility] 07-18-2024 Note Addended by: RADHA BUSBY on: 07/18/2024 02:17 PM Modules accepted: Orders [facility] 07-18-2024 Note Addended by: RADHA BUSBY on: 07/18/2024 02:17 PM Modules accepted: Orders [facility] 07-18-2024 Telephone encounter Note Called [facility] and spoke with nurse. I relayed the message below and she verbalized understanding. [facility] 07-18-2024 Miscellaneous Notes Addended by: RADHA BUSBY on: 07/18/2024 02:17 PM Modules accepted: Orders Called [facility] and spoke with nurse. I relayed the message below and she verbalized understanding. Increase lantus to 45 twice daily thank you Patient is currently taking Humulin R U500(130 units TID) and lantus(30 units BID). Please confirm current u500 doses thank you Images from the original note were not included. Patient's BGL documented in this encounter [facility] 07-18-2024 Telephone encounter Note Increase lantus to 45 twice daily thank you [facility] Work Phone: 07-18-2024 Telephone encounter Note Patient is currently taking Humulin R U500(130 units TID) and lantus(30 units BID). [facility] 07-17-2024 Telephone encounter Note Please confirm current u500 doses thank you [facility] 07-17-2024 Telephone encounter Note Images from the original note were not included. Patient's BGL [facility] 05-02-2024 Telephone encounter Note Faxed recommendation to [facility]([phone]) Thank you! [facility] 05-02-2024 Miscellaneous Notes Faxed recommendation to [facility]([phone]) Thank you! A lot of fluctuation and patient is prone to severe hypoglycemia so would not change dose thank you BS Log for 04/25/24 - 05/01/24 scanned into media for review. Please advise. Thank you. documented in this encounter [facility] 05-02-2024 Telephone encounter Note A lot of fluctuation and patient is prone to severe hypoglycemia so would not change dose thank you [facility] Phone: 05-02-2024 Telephone encounter Note BS Log for 04/25/24 - 05/01/24 scanned into media for review. Please advise. Thank you. [facility] 02-24-2024 Telephone encounter Note Please ask to increase u500 insulin with meals to 85 units with meals thank you [facility] Phone: 02-24-2024 Miscellaneous Notes Please ask to increase u500 insulin with meals to 85 units with meals thank you Nabil returned call. Nabil Message released to patient as written. Radha Busby MA Manager Discovery Signed 2:13 PM Called [facility] to confirm current DM insulin [...] to the patient from encounter: N/A Called [facility] to confirm current DM insulin [...] included. Patient's BGL documented in this encounter [facility] 02-23-2024 Telephone encounter Note Nabil returned call. Nabil Message released to patient as written. Radha Busby MA Manager Discovery Signed 2:13 PM Called [facility] to confirm current DM insulin [...] relayed to the patient from encounter: N/A [facility] 02-23-2024 Miscellaneous Notes Nabil returned call. Nabil Message released to patient as written. Radha Busby MA Manager Discovery Signed 2:13 PM [facility] current DM insulin regimen. [...] to the patient from encounter: N/A [facility] to confirm current DM insulin regimen. [...] included. Patient's BGL documented in this encounter [facility] 02-23-2024 Telephone encounter Note Called [facility] to confirm current DM insulin regimen. Nurse was unavailable and will call back. We have on file that patient is taking lantus 30 units two times daily and humulin R U500 70 units with meals. [facility] can release message to confirm the doses. Please also inform them for future blood sugar logs to also send current med. List. Thank you! [facility] 02-22-2024 Telephone encounter Note Please see if we can get a the patient's current dm meds with the next fax so we can adjust. Thank you [facility] Work Phone: 02-22-2024 Miscellaneous Notes Please see if we can get a the patient's current dm meds with the next fax so we can adjust. Thank you Images from the original note were not included. Patient's BGL documented in this encounter [facility] 02-22-2024 Telephone encounter Note Images from the original note were not included. 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 other toe(s), unspecified side (HCC) Anxiety disorder Bipolar 1 disorder (FORM[facility]LY [facility]) Blood circulation, collateral Cellulitis chronic L lower leg COVID 12/08/2021 Depression Diabetes mellitus ([facility]) Type II, on insulin Disease of blood and blood forming organ Endometrial carcinoma ([facility]) 11/25/2020 Endometrial hyperplasia Foot ulcer ([facility]) Hx of blood clots RLE prior to amputation Hyperlipidemia Hypertension Lymphedema 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 documented in this encounter [facility] 02-11-2024 Instructions Urszula Herirng MA - 02/11/2024 10:10 AM EDT YOUR APPOINTMENT TODAY WAS WITH [facility], COPD CLINIC, PULMONARY AND SLEEP MEDICINE OFFICE. PLEASE CALL OUR OFFICE AT [phone] IF YOU HAVE NOT RECEIVED YOUR TEST [...] to make improvements. COVID-19 VACCINATION INFORMATION: PH. [phone] [email or web address] [facility] Central Scheduling [phone] [facility] Sleep Scheduling [phone] documented in this encounter [facility] 01-28-2024 Emergency department Note Report called to Preethi Frias RN. Sonya Hill RN 01/28/2412 [facility] 01-28-2024 Emergency department Note Report called [...] Nolan RN 01/27/241923 documented in this encounter [facility] 01-27-2024 Emergency department Note Report to PASTORA Almendarez. Maylin Nolan RN 01/27/242020 [facility] 01-27-2024 Emergency department Note DM transport arranged. ETA 3-4 hours. Maylin Nolan RN 01/27/242018 [facility] 01-27-2024 Hospital Discharg e tayla Low [...] 200 units once daily. Follow-up with your renewable energy engineer in the office within the next week. documented in this encounter [facility] 01-27-2024 Emergency department Note Patient quickly ate his sack lunch and two diet cokes. Shortly after patient complains of stomach pain. Provider notified. Maylin Nolan RN 01/27/242005 [facility] 01-27-2024 Emergency department Note Sack lunch provided. Maylin Nolan RN 01/27/241923 [facility] 01-26-2024 Emergency department Note Patient provided sack lunch per his request. Denise Terry RN 01/26/242229 [facility] 01-26-2024 Emergency department Note Patient provided sack lunch per his request. Denise Terry RN 01/26/242229 I did not see or evaluate this patient in the ED. Mark Couch PA-C 01/26/242127 EMERGENCY DEPARTMENT ENCOUNTER Pt Name: Will Jacinto Birthdate 1965 Date of evaluation: 01/26/2024 ED Provider: Art Zeng DO CHIEF COMPLAINT Chief Complaint Patient presents with Hypoglycemia [facility] sugar. Facility states that it was 48. Patient was fed and EMS sugar was 76. On arrival to room BGM was 102. HISTORY OF PRESENT ILLNESS (Location/Symptom, Timing/Onset, Context/Setting, Quality, Duration, Modifying Factors, Severity) Note limiting factors. HPI Will Jacinto is a 58 y.o. adult who presents to the emergency department due to hypoglycemia. Blood sugar was 48 at his skilled nursing, he says they gave him some pudding, [...] (HCC) Anxiety disorder Bipolar 1 disorder ([facility]) Blood circulation, collateral Cellulitis chronic L lower [...] tissue disorders Other symbolic dysfunctions Schizophrenia ([facility]) Sleep apnea no CPAP Venous insufficiency SURGICAL HISTORY Past Surgical History: Procedure Laterality Date ABCESS DRAINAGE Right 09/09/2018 FOOT; [facility] COLONOSCOPY 09/19/[address] Hyde DILATION AND CURETTAGE OF UTERUS 05/18/2019 HYSTEROSCOPY 12/23/2021 LEG AMPUTATION THROUGH KNEE Right 06/16/2019 UPPER GASTROINTESTINAL ENDOSCOPY N/A 06/29/2023 Dr Sergio Sibley at [facility]; no specimens WISDOM TOOTH EXTRACTION CURRENT MEDICATIONS [...] Value Glucose 102 (*) Narrative: Performed by: [facility] [employer] [facility], [address] [place] [id number] CLIA ID: [id number] POCT GLUCOSE METER UNSOLICITED RESULTS - Abnormal Glucose 111 (*) Narrative: Performed by: [facility] [employer] [facility], [address] [place] [id number] CLIA ID: [id number] POCT GLUCOSE METER UNSOLICITED RESULTS - Abnormal Glucose 101 (*) Narrative: [facility]formed by: [facility], [address] [place] [id number] CLIA ID: [id number] All other labs were within normal range [...] Hypoglycemia PATIENT REFERRED TO: Jared Guzman [address] [facility] [address] Schedule an appointment as [...] Zeng DO 01/26/242215 documented in this encounter [facility] 01-26-2024 Hospital Discharg e instructions Art Zeng DO - 01/26/2024 10:15 PM EDT Call your doctor in the morning to schedule follow up. Eat regular meals and snacks. Return to the ED for recurrent symptoms or if any other problems arise. The following attachments cannot be sent through Care Everywhere.Low Blood Sugar Discharge Instructions, Adult ([place])documented in this encounter [facility] 01-26-2024 Physician Emergency department Note I did not see or evaluate this patient in the ED. Mark Couch PA-C 01/26/242127 [facility] Work Phone: 01-26-2024 Physician Emergency department Note EMERGENCY DEPARTMENT ENCOUNTER Pt Name: Will Jacinto Birthdate 1965 Date of evaluation: 01/26/2024 ED Provider: Art Zeng DO CHIEF COMPLAINT Chief Complaint Patient presents with Hypoglycemia Patient reports from [facility] for low blood sugar. Facility states [...] hypoglycemia. Blood sugar was 48 at his skilled nursing, he says they gave him some pudding, [...] absence of other toe(s), unspecified side ([facility]) Anxiety disorder Bipolar 1 disorder ([facility]) Blood circulation, collateral Cellulitis chronic L lower leg COVID 12/08/2021 Depression Diabetes mellitus ([facility]) Type II, on insulin Disease of blood and blood forming organ Endometrial carcinoma ([facility]) 11/25/2020 Endometrial hyperplasia Foot ulcer ([facility]) Hx of blood clots RLE prior to amputation Hyperlipidemia Hypertension Lymphedema MDRO (multiple drug 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, RLE Morbidly obese ([facility]) Muscle weakness Osteomyelitis ([facility]) Osteomyelitis ([facility]) 2019 RLE Other lack of coordination Other specified soft tissue disorders Other symbolic dysfunctions Schizophrenia ([facility]) Sleep apnea no CPAP Venous insufficiency SURGICAL HISTORY Past Surgical History: Procedure Laterality Date ABCESS DRAINAGE Right 09/09/2018 FOOT; ACH COLONOSCOPY 09/19/[address] Hyde DILATION AND CURETTAGE OF UTERUS 05/18/2019 HYSTEROSCOPY 12/23/2021 LEG AMPUTATION THROUGH KNEE Right 06/16/2019 UPPER GASTROINTESTINAL ENDOSCOPY N/A 06/29/2023 Dr Sergio Sibley at [facility]; no specimens WISDOM TOOTH EXTRACTION CURRENT MEDICATIONS [...] [facility], [address] [place] [id number] CLIA ID: [id number] POCT GLUCOSE METER UNSOLICITED RESULTS - Abnormal Glucose 111 (*) Narrative: Performed by: [facility], [address] [place] [address], [facility] [address] CLIA ID: [id number] POCT GLUCOSE METER UNSOLICITED RESULTS - Abnormal Glucose 101 (*) Narrative: Performed by: [facility], [address] [place] [address], [facility] [address] CLIA ID: [id number] All other labs were within normal range [...] Hypoglycemia PATIENT REFERRED TO: Jared Guzman [address] [facility] [id number] Schedule an appointment as soon as possible [...] Medicine Provider Art Zeng DO 01/26/24 2216 [facility] 01-24-2024 Telephone encounter Note Pt again appeared on ED [facility] for CT AP 01/22/24; noting stable 8mm nodule; unchanged from 08/2023 report. Pt to keep appt for fu with Herber Ramos 02/11/24. Navigators to follow. [facility] 01-24-2024 Miscellaneous Notes Pt again appeared [...] is unchanged since 08/08/2023. Referral: known to [facility]; Herber Ramos [facility] imaging n/a Pt is documented as never smoker Additional Risk Factors: na Planning CT low dose fu 01/06/24 will send to provider to confirm plan for fu. Pt has scheduled appt with Herber Ramos 02/11/24. documented in this encounter [facility] 01-22-2024 Emergency department Note EMERGENCY DEPARTMENT [...] (HCC) Anxiety disorder Bipolar 1 disorder ([facility]) Blood circulation, collateral Cellulitis chronic L lower leg COVID 12/08/2021 Depression Diabetes mellitus ([facility]) Type II, on insulin Disease of blood and blood forming organ Endometrial carcinoma ([facility]) 11/25/2020 Endometrial hyperplasia Foot ulcer ([facility]) Hx of blood clots RLE prior to [...] ENDOSCOPY N/A 06/29/2023 Dr Sergio Sibley at [facility]; no specimens WISDOM TOOTH EXTRACTION CURRENT MEDICATIONS [...] Culture. Procedure Abnormality Status --------- ------ Complete Urinalysis[[id number]] Abnormal Final result Please view results for [...] AM PATIENT REFERRED TO: Jared Matadomo [address] [facility] [address] Schedule an appointment as [...] for abd pain. documented in this encounter [facility] 01-22-2024 Emergency department Triage note Pt presents to er from snf for abd pain. [facility] 01-22-2024 Physician Emergency department Note EMERGENCY [...] (HCC) Anxiety disorder Bipolar 1 disorder ([facility]) Blood circulation, collateral Cellulitis chronic L lower leg COVID 12/08/2021 Depression Diabetes mellitus ([facility]) Type II, on insulin Disease of blood and blood forming organ Endometrial carcinoma ([facility]) 11/25/2020 Endometrial hyperplasia Foot ulcer ([facility]) Hx of blood clots RLE prior to amputation Hyperlipidemia Hypertension Lymphedema 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, RLE Morbidly obese ([facility]) Muscle weakness Osteomyelitis (HCC) Osteomyelitis ([facility]) 2019 RLE Other lack of coordination Other specified soft tissue disorders Other symbolic dysfunctions Schizophrenia ([facility]) Sleep apnea no CPAP Venous insufficiency SURGICAL HISTORY Past Surgical History: Procedure Laterality Date ABCESS DRAINAGE Right 09/09/2018 FOOT; ACH COLONOSCOPY 09/19/[address] Hyde DILATION AND CURETTAGE OF UTERUS 05/18/2019 HYSTEROSCOPY 12/23/2021 LEG AMPUTATION THROUGH KNEE Right 06/16/2019 UPPER GASTROINTESTINAL ENDOSCOPY N/A 06/29/2023 Dr Segrio Sibley at [facility]; no specimens WISDOM TOOTH EXTRACTION CURRENT MEDICATIONS [...] in 3 months Report Dictated on Workstation: [employer] Electronically Signed By: Brandon Morgan MD Electronically [...] Culture. Procedure Abnormality Status --------- ------ Complete Urinalysis[[id number]] Abnormal Final result Please view results for [...] 75 mL (75 mL IntraVENous Given 01/22/24 1014) cefTRIAXone (Rocephin) 1,000 mg in sodium chloride 0.9 % 50 mL IVPB Mini-Bag Plus (1,000 mg IntraVENous New Bag 01/22/24 7426) REVAL: CRITICAL CARE TIME None CONSULTS: None [...] 05:54:09 AM PATIENT REFERRED TO: Jared Guzman [address] [facility] [address] Schedule an appointment as [...] Emergency Medicine Provider Jaquan Morris DO 01/22/246[address] [facility] 01-21-2024 Telephone encounter Note Called SNF and spoke to Marques who will leave a message for [facility]. Notified them the the pts care can be moved to the [place] office, and to just let the office know after her upcoming appt. [facility] 01-21-2024 Miscellaneous Notes Called SNF and spoke to Marques who will leave a message for Suri. Notified them the the pts care can be moved to the [place] office, and to just let the office know after her upcoming appt. Called SNF and spoke to Quiana who stated that the person that I need to talk to has left for the day and requested that I called tomorrow. Name of caller: Suri Contact phone number: [phone] Relationship to Patient: [facility] Provider: MD Jesus Practice: [facility] Endocrinology Chief Complaint/Reason for Call: Suri called in to see if Pt's F/U appt could be moved to the [place] location. Scheduling is into Jul. [facility] did advise Suri and she stated she will keep the scheduled appt at [facility] location, but would like to know if Pt can be scheduled at the [place] location for his next f/u appt. Please advise Best time of day caller can be reached: Any Patient advised that office/PCP has 24-48 business hours to return their call: N/A documented in this encounter [facility] 01-20-2024 Telephone encounter Note Called SNF and spoke to Quiana who stated that the person that I need to talk to has left for the day and requested that I called tomorrow. [facility] 01-20-2024 Telephone encounter Note Name of caller: Suri Contact phone number: [phone] Relationship to Patient: [facility] Provider: MD Jesus Practice: [facility] Endocrinology Chief Complaint/Reason for Call: Suri called in to see if Pt's F/U appt could be moved to the [place] location. Scheduling is into Jul. [facility] did advise Suri and she stated she will keep the scheduled appt at [facility] location, but would like to know if Pt can be scheduled at the [place] location for his next f/u appt. Please advise Best time of day caller can be reached: Any Patient advised that office/PCP has 24-48 business hours to return their call: N/A [facility] 01-20-2024 Telephone encounter Note Faxed recommendation to [facility]([phone]). [facility] 01-20-2024 Miscellaneous Notes Faxed recommendation to [facility]([phone]). Please keep doses the same thank you Images from the original note were not included. Patient's BGL documented in this encounter [facility] 01-19-2024 Telephone encounter Note Please keep doses the same thank you [facility] Work Phone: 01-19-2024 Telephone encounter Note Images from the original note were not included. Patient's BGL [facility] 01-04-2024 Telephone encounter Note Defer CT chest (imaging has been cancelled) Keep appt schedule 02/11/24 to review next steps. [facility] 01-04-[address]er [address] chest (imaging has been cancelled) Keep appt schedule 02/11/24 to review next steps. Pt appeared on ED nuance search for lung nodules after CT AP 12/31/23 revealed the following: LOWER CHEST: An 8 mm nodule is present within the right middle lobe. This is unchanged since 08/08/2023. Referral: known to [facility]; Herber [facility] imaging n/a Pt is documented as never smoker Additional Risk Factors: na Planning CT low dose fu 01/06/24 will send to provider to confirm plan for fu. Pt has scheduled appt with Herberchava Ramos 02/11/24. documented in this encounter [facility] 01-03-2024 Telephone encounter Note Pt appeared on ED nuance search for lung nodules after CT AP 12/31/23 revealed the following: LOWER CHEST: An 8 mm nodule is present within the right middle lobe. This is unchanged since 08/08/2023. Referral: known to [facility]; Herberchava [facility] imaging n/a Pt is documented as never smoker Additional Risk Factors: na Planning CT low dose fu 01/06/24 will send to provider to confirm plan for fu. Pt has scheduled appt with Herber Richard 02/11/24. [facility] 12-29-2023 Emergency department Note Hans Larkin here for transfer back to facility. Sera Noguera RN 12/29/23 1009 [facility] 12-29-2023 Emergency department Note Hans Larkin here for transfer back to facility. Sera Noguera RN 12/29/23 1009 Report from offload medic, pt assisted using using bedpan at this time. 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 Todd Damon 12/29/23 0143 EMERGENCY DEPARTMENT ENCOUNTER Pt Name: Maria Luisa Jacinto Birthdate 1965 Date of evaluation: 12/28/2023 ED Provider: Ramsey Zavaleta DO CHIEF COMPLAINT Chief Complaint Patient presents with Nausea Vomiting Pt arrived by EMS from [facility] due to N/V for 1 month. Upon [...] this timeframe. He is a resident at [facility] where his sugars are monitored [...] absence of other toe(s), unspecified side ([facility]) Anxiety disorder Bipolar 1 disorder ([facility]) Blood circulation, collateral Cellulitis chronic L lower leg COVID 12/08/2021 Depression Diabetes mellitus ([facility]) Type II, on insulin Disease of blood and blood forming organ Endometrial carcinoma ([facility]) 11/25/2020 Endometrial hyperplasia Foot ulcer ([facility]) Hx of blood clots RLE prior to amputation Hyperlipidemia Hypertension Lymphedema 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, RLE Morbidly obese ([facility]) Muscle weakness Osteomyelitis ([facility]) Osteomyelitis ([facility]) 2019 RLE Other lack of coordination Other specified soft tissue disorders Other symbolic dysfunctions Schizophrenia ([facility]) Sleep apnea no CPAP Venous insufficiency SURGICAL HISTORY Past Surgical History: Procedure Laterality Date ABCESS DRAINAGE Right 09/09/2018 FOOT; ACH COLONOSCOPY 09/19/[address] Hyde DILATION AND CURETTAGE OF UTERUS 05/18/2019 HYSTEROSCOPY 12/23/2021 LEG AMPUTATION THROUGH KNEE Right 06/16/2019 UPPER GASTROINTESTINAL ENDOSCOPY N/A 06/29/2023 Dr Sergio Sibley at [facility]; no specimens WISDOM TOOTH EXTRACTION CURRENT MEDICATIONS [...] Culture. Procedure Abnormality Status --------- ------ Complete Urinalysis[[id number]] Please view results for these tests on [...] Resident 12/29/23 0416 documented in this encounter [facility] 12-29-2023 Emergency department Note Report from offload medic, pt assisted using using bedpan at this time. 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 Follow-up with your PCP for reassessment. documented in this encounter [facility] 12-29-2023 Emergency department Note Pt passed PO challenge w/o difficulty. Todd Damon 12/29/23 0143 [facility] 12-28-2023 Miscellaneous Notes Emergency Department Encounter [facility] EMERGENCY DEPT Patient: Will Jacinto : 1965 [...] clarification.) Edwin Bustos MD Acute Care [facility] Edwin Bustos MD 12/29/23 0614 documented in this encounter [facility] 12-28-2023 Note Formatting of this n ote is different from the original. Emergency Department Encounter [facility] EMERGENCY DEPT Patient: Will Jacinto : 1965 [...] clarification.) Edwin Bustos MD Acute Care [facility] Edwin Bustos MD 12/29/23 0614 [employer] Phone: 12-28-2023 Note Formatting of this n ote is different from the original. Emergency Department Encounter [facility] EMERGENCY DEPT Patient: Will Jacinto : 1965 [...] [employer] Edwin Bustos MD 12/29/23 0614 [employer] Phone: 12-28-2023 Physician Emergency department Note EMERGENCY DEPARTMENT ENCOUNTER Pt Name: Maria Luisa Jacinto Birthdate 1965 Date of evaluation: 12/28/2023 ED Provider: Ramsey Zavaleta DO CHIEF COMPLAINT Chief Complaint Patient presents with Nausea Vomiting Pt arrived by EMS from [facility] due to N/V for 1 month. Upon [...] this timeframe. He is a resident at [facility] where his sugars are monitored [...] ENDOSCOPY N/A 06/29/2023 Dr Sergio Sibley at [facility]; no specimens WISDOM TOOTH EXTRACTION CURRENT MEDICATIONS [...] Culture. Procedure Abnormality Status --------- ------ Complete Urinalysis[[id number]] Please view results for these tests on [...] 0413 Ramsey Zavaleta DO Resident 12/29/23 0416 [facility] 12-28-2023 Telephone encounter Note Faxed recommendation to [facility]. Thank you! [facility] 12-28-2023 Miscellaneous Notes Faxed recommendation to [facility]. Thank you! Please keep doses the same thank you Images from the original note were not included. Patient's BGL documented in this encounter [facility] 12-28-2023 Telephone encounter Note Please keep doses the same thank you [facility] 12-28-2023 Telephone encounter Note Images from the original note were not included. Patient's BGL [facility] 12-23-2023 Procedure note Pt refused to finish last 2 hours of GES, only obtained intial 2 hrs of test. [facility] 12-23-2023 Procedure note Pt refused to finish last 2 hours of GES, only obtained intial 2 hrs of test. documented in this encounter [facility] 12-14-2023 Telephone encounter Note Called [facility] and was on an extended hold. I faxed over recommendation and noted for someone to give us a call to ensure they received the recommendation. Thank you! [facility] 12-14-2023 Miscellaneous Notes Called [facility] and was on an extended hold. [...] same symptoms. Since patient is back to [facility], patient continues to have some emesis and [...] to Dr Lee. Please, advise Ninfa at [facility] of any medication changes and care advise. Phone number is [phone], ask for BEE Ocasio. Ninfa states she did fax over patient glucometer's for a week. Reason for Disposition Blood glucose > 300 mg/dL (16.7 mmol/L) AND two or more times in a row Protocols used: Diabetes - High Blood Cwlzx-BSWXH-CP documented in this encounter [facility] [employer] 12-13-2023 Telephone encounter Note Please tell staff that they can give 1/2 the usual dose of u500 insulin if the patient is not eating thank you [facility] 12-13-2023 Telephone encounter Note Images from the original note were not included. Patient's BGL is below for your review. Thank you! [facility] [employer] 12-13-2023 Telephone encounter Note S: Patient spoke with CAC nurse regarding high glucometer's and insulin dose questions B: Onset of symptoms/concern about a week A: Patient seen in ER on 12/09/2023 for same symptoms. Since patient is back to [facility], patient continues to have some [...] to Dr Lee. Please, advise Ninfa at [facility] of any medication changes and care advise. Phone number is [phone], ask for BEE Ocasio. Ninfa states she did fax over patient glucometer's for a week. Reason for Disposition Blood glucose > 300 mg/dL (16.7 mmol/L) AND two or more times in a row Protocols used: Diabetes - High Blood Smxmy-JCDCM-KX [facility] [employer] 12-09-2023 Emergency department Note This nurse received report from Margaret Coleman RN 12/09/23 0728 [facility] 12-09-2023 Emergency department Note This nurse received report from Margaret Coleman RN 12/09/23 0728 ED RT Marques called for VBG. Marques states he will be down Dalila Mendes RN 12/09/23 0559 Pt presents to ED c/o nausea and vomiting and headache. EMS states several residents have COVID at facility. Pt states she vomiting 3x today. documented in this encounter [facility] 12-09-2023 Hospital Discharg e instructions Caridad [...] sent through Care Everywhere.Dehydration Discharge Instructions, Adult ([place])Nausea and Vomiting, Adult ED ([place])documented in this encounter [facility] 12-09-2023 Note Sinus rhythm Abnormal R-wave progression, late transition Left ventricular hypertrophy No significant change compared to 08/17/2023 Electronically Signed On 12-09-2023 06:18:33 EST by Caridad LAZARO AzubuANY 12-09-2023 Note Sinus rhythm Abnormal R-wave progression, late transition Left ventricular hypertrophy No significant change compared to 08/17/2023 Electronically Signed On 12-09-2023 06:18:33 EST by Caridad LAZARO EPIPHANY 12-09-2023 Emergency department Note ED RT Marques called for VBG. Marques states he will be down Dalila Mendes RN 12/09/23 0559 [facility] 12-09-2023 Emergency department Triage note Pt presents to ED c/o nausea and vomiting and headache. EMS states several residents have COVID at facility. Pt states she vomiting 3x today. [facility] 12-06-2023 Telephone encounter Note Images from the original note were not included. Patient's BGL [facility] 12-06-2023 Miscellaneous Notes Images from the original note were not included. Patient's BGL documented in this encounter [facility] 11-25-2023 Note Addended by: GERONIMO LEE on: 11/25/2023 12:06 PM Modules accepted: Orders [facility] 11-25-2023 Note Addended by: GERONIMO LEE on: 11/25/2023 12:06 PM Modules accepted: Orders [facility] 11-25-2023 Miscellaneous Notes Addended by: GERONIMO LEE on: 11/25/2023 12:06 PM Modules accepted: Orders Addended by: RADHA BUSBY on: 11/25/2023 11:59 AM Modules accepted: Orders Called nursing facility and spoke with nurse Ninfa. I relayed the message and she verbalized understanding. Updated RX is pending. Thank you! Please increase doses to 200 units with each meal thank you Called [facility] and spoke with nurse ochoa. She verified that patient is taking humulin R U500(250 units with breakfast/175 units with lunch and dinner Please check on insulin doses; will need to increase thank you Images from the original note were not included. Patient's BGL [facility]-25-2023 Note Addended by: RADHA BUSBY on: 11/25/2023 11:59 AM Modules accepted: Orders [facility] 11-25-2023 Note Addended by: RADHA BUSBY on: 11/25/2023 11:59 AM Modules accepted: Orders [facility] 11-25-2023 Telephone encounter Note Called nursing facility and spoke with nurse Ocasio. I relayed the message and she verbalized understanding. Updated RX is pending. Thank you! [facility] 11-24-2023 Telephone encounter Note Please increase doses to 200 units with each meal thank you [facility] Work Phone: 01-17-2024 Miscellaneous Notes Please increase doses to 200 units with each meal thank you Called [facility] and spoke with nurse ochoa. She verified that patient is taking humulin R U500(250 units with breakfast/175 units with lunch and dinner Please check on insulin doses; will need to increase thank you Images from the original note were not included. Patient's BGL documented in this encounter [facility] 11-24-2023 Telephone encounter Note Called [facility] and spoke with nurse ochoa. She verified that patient is taking humulin R U500(250 units with breakfast/175 units with lunch and dinner [facility] 11-23-2023 Telephone encounter Note Please check on insulin doses; will need to increase thank you [facility] 11-23-2023 Telephone encounter Note Images from the original note were not included. Patient's BGL [facility] 11-17-2023 Note HNO ID: [id number] Author: ELDA REAVES PA-C Service: ? Author Type: Physician Regional Transportation Manager Type: Progress Notes Filed: 11/17/2023 10:00 Note Text: CHIEF COMPLAINT: Patient presents with: Nausea AND Vomiting HPI: Resident at [facility], SNF and rehab. Will Jacinto is a [...] Never Substance Us (more content not included)... [facility] 11-09-2023 Telephone encounter Note BGL under media for review. [facility] 11-09-2023 Miscellaneous Notes BGL under media for review. Nabil is faxing over patient's bgl right now. Name of caller: Nabil Contact phone number: [phone] Relationship to Patient: [facility] Provider: Dr Lee Practice: Endocrinology Chief Complaint/Reason [...] their call: Yes documented in this encounter [facility] 11-09-2023 Telephone encounter Note Nabil is faxing over patient's bgl right now. [facility] 11-09-2023 Telephone encounter Note Name of caller: Nabil Contact phone number: [phone] Relationship to Patient: [facility] [place] Provider: Dr Lee Practice: Endocrinology Chief Complaint/Reason [...] business hours to return their call: Yes [facility] 10-27-2023 History of Presen t illness Narrative . ENDOCRINOLOGY [address] [place] [id number] Dept: [phone] Dept Visit type: Established patient Patient was [...] stated that they are currently in the [facility]. If the patient is a minor, [...] the skin daily (before lunch). 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, RLE Morbidly obese ([facility]) Muscle weakness Osteomyelitis (HCC) Osteomyelitis ([facility]) 2019 RLE Other lack of coordination Other specified soft tissue disorders Other symbolic dysfunctions Schizophrenia ([facility]) Sleep apnea no CPAP Venous insufficiency Social History Tobacco Use Smoking status: Never Smokeless tobacco: Never Substance Use Topics Alcohol use: No Past Surgical History: Procedure Laterality Date ABCESS DRAINAGE Right 09/09/2018 FOOT; ACH COLONOSCOPY 09/19/[address] Hyde DILATION AND CURETTAGE OF UTERUS 05/18/2019 HYSTEROSCOPY 12/23/2021 LEG AMPUTATION THROUGH KNEE Right 06/16/2019 UPPER GASTROINTESTINAL ENDOSCOPY N/A 06/29/2023 Dr Sergio Sibley at [facility]; no specimens WISDOM TOOTH EXTRACTION Family History [...] Geronimo Lee MD documented in this encounter [facility] 10-16-2023 History of Presen t illness Narrative [facility] called and notified this nurse that they won't be able to pick patient up until 0200 d/t bariatric patient and requires 2 crews. Spoke with staff and [facility] and per staff will still be able to accept patient at that time. [facility] aware ok to transport patient at 0200 to [facility]. Patient updated on delay in transportation. Department of Internal Medicine Division of Endocrinology, Diabetes, & Metabolism Endocrinology Note Patient Name: Will Jacinto : 1965 AGE: 57 y.o. Room/Bed: [facility]/[address] Admission Date: 10/07/2023 Visit Date: 10/16/2023 Reason for Endocrine Consult: U-500 dosing, hypoglycemia Provider/Team Requesting Consult: [facility] PCP: Jared Guzman Outpt Fur Storage Clerk: Dr. Lee ASSESSMENT: Type 2 diabetes, uncontrolled, [...] and he presented to the hospital from skilled nursing for hypoglycemia/unresponsiveness due to poor PO intake. Type of DM: 2 Onset of DM: 1991 Home DM Medication Regimen: U-500 insulin - 285 units before breakfast/260 units before lunch/285 units before dinner , Trulicity 4.5 mg weekly DM control (last A1c/glucose data): 7.7% on current admission Resides at the [facility] Interim history: Patient was seen at bedside Good PO intake Has intermittent nausea; no vomiting or AP Drinks juice occasionally ID following - on IV Abx; has PICC No SOB or CP Plan for DC to [facility] Date/Time Value Ref Range Status 10/16/2023 [...] Units, SubCUTAneous, Daily before lunch Lactobacillus Acid-Pectin (Acidophilus/[place]mouth Pectin) tablet 1 tablet, Oral, 2 times [...] found for: CHOLHDLRATIO No results found for: [id number] Lab Results Component Value Date TSH 2.356 [...] (HCC) Anxiety disorder Bipolar 1 disorder ([facility]) Blood circulation, collateral Cellulitis chronic L lower leg COVID 12/08/2021 Depression Diabetes mellitus ([facility]) Type II, on insulin Disease of blood and blood forming organ Endometrial carcinoma ([facility]) 11/25/2020 Endometrial hyperplasia Foot ulcer ([facility]) Hx of blood clots RLE prior to [...] ENDOSCOPY N/A 06/29/2023 Dr Sergio Sibley at [facility]; no specimens WISDOM TOOTH EXTRACTION Allergy(ies): No [...] were not included. Hospitalist Progress Note 10/16/2023 [id number]: Please page [facility] night Hospitalist for any issues. Admit Date: 10/07/2023 PCP: Jared Guzman Room#: [id number]/[id number] A Brief hospital course: Patient admitted 10/07/2023 for hypoglycemia 2/2 insulin use with poor PO intake, hypothermia, ?sepsis. 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 Initially presented from [facility] with hypoglycemia and unresponsiveness, POC glucose [...] absence of other toe(s), unspecified side ([facility]) Anxiety disorder Bipolar 1 disorder ([facility]) Blood circulation, collateral Cellulitis chronic L lower leg COVID 12/08/2021 Depression Diabetes mellitus ([facility]) Type II, on insulin Disease of blood and blood forming organ Endometrial carcinoma ([facility]) 11/25/2020 Endometrial hyperplasia Foot ulcer ([facility]) Hx of blood clots RLE prior to amputation Hyperlipidemia Hypertension Lymphedema MDRO (multiple drug resistant organisms) resistance hx CRE and MRSA in 2018, RLE Morbidly obese ([facility]) Muscle weakness Osteomyelitis (HCC) Osteomyelitis ([facility]) 2019 RLE Other lack of coordination Other specified soft tissue disorders Other symbolic dysfunctions Schizophrenia ([facility]) Sleep apnea no CPAP Venous insufficiency Objective: [...] found for: "DDIMER", "PROCAL", "COVID19", "HGBA1C", "TSH", "[id number]", "FOLATE", "VITD25", "CHOL", "TRIG", "HDL", LDLCALC Urine [...] mg, Oral, Nightly, Rachael Robertson APRN - ARCHITECTURAL DRAFTSPERSON, 10 mg at 10/15/232044 metoprolol tartrate (Lopressor) [...] Oral, qAM AC, Rachael Robertson APRN - ARCHITECTURAL DRAFTSPERSON, 40 mg at 10/16/23 0619 polyethylene glycol (PEG) 3350 (Miralax) packet 17 g, 17 g, Oral, Daily PRN, Rachael Robertson APRN - ARCHITECTURAL DRAFTSPERSON polyethylene glycol (PEG) 3350 (Miralax) packet 17 [...] or tomorrow - [facility] Pending the following - monitor glucose levels through dinner, bed hold no auth req'd and OPAT already sent to facility Marcio Armando MD Division of Hospitalist Medicine Inpatient Medical Services/[facility] Data: Moderate (3x CAT1 -OR- 1x CAT2 -OR- 1x CAT3) Complexity: Acute illness or injury posing a threat to life or body function (HIGH). Risk: Prescription drug/IVF/colloid was initiated, discontinued, adjusted; or reviewed with decision to maintain current orders (MOD). Estimated MDM: Medium (09524/03959) or higher Note: the above MDM determinations [...] 1965 AGE: 57 y.o. Room/Bed: [facility]/[address] Admission Date: 10/07/2023 Visit Date: 10/15/2023 Reason for Endocrine Consult: U-500 dosing, hypoglycemia Provider/Team Requesting Consult: [facility] PCP: Jared Guzman Outpt Fur Storage Clerk: Dr. Lee ASSESSMENT: Type 2 diabetes, uncontrolled, [...] BF for BG 498) -- discussed with DOOR MACHINE OPERATOR/RN Continue Humalog high dose scale with [...] and he presented to the hospital from skilled nursing for hypoglycemia/unresponsiveness due to poor PO intake. Type of DM: 2 Onset of DM: 1991 Home DM Medication Regimen: U-500 insulin - 285 units before breakfast/260 units before lunch/285 units before dinner , Trulicity 4.5 mg weekly DM control (last A1c/glucose data): 7.7% on current admission Resides at the [facility] Interim history: Patient was seen at bedside [...] SOB or CP Plan for DC to [facility] Date/Time Value Ref Range Status 10/15/2023 [...] before lunch/285 units before dinner Lactobacillus Acid-Pectin (Acidophilus/[place]mouth Pectin) tablet 1 tablet, Oral, 2 times [...] found for: CHOLHDLRATIO No results found for: [id number] Lab Results Component Value Date TSH 2.356 11/26/2020 Radiology reportsas per the Radiologist Radiology: CT abdomen pelvis w contrast Result Date: 10/08/2023 [facility] 1965 [id number] Exam Date/Time: 10/08/2023 09:36 Procedure: CT ABDOMEN [...] (HCC) Anxiety disorder Bipolar 1 disorder ([facility]) Blood circulation, collateral Cellulitis chronic L lower leg COVID 12/08/2021 Depression Diabetes mellitus ([facility]) Type II, on insulin Disease of blood and blood forming organ Endometrial carcinoma ([facility]) 11/25/2020 Endometrial hyperplasia Foot ulcer ([facility]) Hx of blood clots RLE prior to amputation Hyperlipidemia Hypertension Lymphedema MDRO (multiple drug resistant organisms) resistance hx CRE and MRSA in 2018, RLE Morbidly obese ([facility]) Muscle weakness Osteomyelitis ([facility]) Osteomyelitis ([facility]) 2019 RLE Other lack of coordination Other specified soft tissue disorders Other symbolic dysfunctions Schizophrenia ([facility]) Sleep apnea no CPAP Venous insufficiency Past Surgical History: Past Surgical History: Procedure Laterality Date ABCESS DRAINAGE Right 09/09/2018 FOOT; ACH COLONOSCOPY 09/19/[address] Hyde DILATION AND CURETTAGE OF UTERUS 05/18/2019 HYSTEROSCOPY 12/23/2021 LEG AMPUTATION THROUGH KNEE Right 06/16/2019 UPPER GASTROINTESTINAL ENDOSCOPY N/A 06/29/2023 Dr Sergio Sibley at [facility]; no specimens WISDOM TOOTH EXTRACTION Allergy(ies): No [...] were not included. Hospitalist Progress Note 10/15/[phone]: Please page [facility] Hospitalist for any issues. Admit [...] transgender (F2M). Initially presented from [facility] with hypoglycemia and unresponsiveness, POC glucose [...] (HCC) Anxiety disorder Bipolar 1 disorder ([facility]) Blood circulation, collateral Cellulitis chronic L lower leg COVID 12/08/2021 Depression Diabetes mellitus ([facility]) Type II, on insulin Disease of blood and blood forming organ Endometrial carcinoma ([facility]) 11/25/2020 Endometrial hyperplasia Foot ulcer ([facility]) Hx of blood clots RLE prior to amputation Hyperlipidemia Hypertension Lymphedema MDRO (multiple drug resistant organisms) resistance hx CRE and MRSA in 2018, RLE Morbidly obese ([facility]) Muscle weakness Osteomyelitis (HCC) Osteomyelitis (HCC) 2019 [...] found for: "DDIMER", "PROCAL", "COVID19", "HGBA1C", "TSH", "[id number]", "FOLATE", "VITD25", "CHOL", "TRIG", "HDL", LDLCALC Urine [...] Oral, qAM AC, Rachael Robertson APRN - ARCHITECTURAL DRAFTSPERSON, 40 mg at 10/15/23 0619 polyethylene glycol [...] - 10/16 - Location - [facility] - Pending the following - final endo recs, bed hold no auth req'd and OPAT already sent to facility Marcio Armando MD Division of Hospitalist Medicine Inpatient Medical Services/[facility] Data: Moderate (3x CAT1 -OR- 1x CAT2 -OR- 1x CAT3) Complexity: Acute illness or injury posing a threat to life or body function (HIGH). Risk: Prescription drug/IVF/colloid was initiated, discontinued, adjusted; or reviewed with decision to maintain current orders (MOD). Estimated MDM: Medium (21440/57165) or higher Note: the above MDM determinations are made by me for my own use to estimate my end-of-day billing codes. However, documentation is reviewed by professional coders; following their review of documentation, and in accordance with current AMA CPT, CMS, and ACDIS guidelines, the actual billing code(s) may differ from my estimate. Images from the original note were not included. [facility] - Infectious Diseases Attending Progress [...] be of low complexity. Mukul Coreas DO [facility] Infectious Diseases Office Tel. [phone] Nutrition Assessment Type and Reason for Visit: [...] eating 1 meal yesterday, today had 2 yi yogurt parfairts and had just eaten small personal kelley pizza, ordered a grilled chicken sandwich as well, not drinking ONS frequently, PO intakes 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 CONSULTANT poor for 4 days) Weight Loss: Unable to assess (no new/acute weight to assess) Body Fat Loss: No significant body fat loss Muscle Mass Loss: No significant muscle mass loss Fluid Accumulation: Mild Extremities, Generalized Tire Shop Manager Strength: Not Performed Nutrition Assessment: Pt with previously noted PMH including DM w/ gastroparesis (documented as 'brittle') & polyneuropathy, HTN, HLD, s/p R AKWarren presented initially from nursing facility due to hypoglycemia and unresponsiveness; pt was noted to have poor PO intake for at least 4 days 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 CONSULTANT in addition to N/V, when pt was [...] limited documentation in chart to review, per safety grooving machine operator appears pt had 2 small yogurts this [...] is likely r/t uncontrolled DM; at facility ([facility]) pt enjoys/tolerates some meals, others do 'not [...] 152 kg (335 lb) (03/08/23 Deedee scale) [place] Body Weight (lbs) (Calculated): 130 lbs [place] Body Weight (Kg) (Calculated): 59 kg Weight Adjustment For: Amputation % Weight Adjustment: 10.1 - AKA Total Adjusted Percentage (Calculated): 10.1 Adjusted [place] Body Weight (lbs) (Calculated): 116.9 lbs Adjusted [place] Body Weight (kg) (Calculated): 53.14 kg BMI [...] Ana Reyes RD Contact: Secure chat or *[phone] Department of Internal Medicine Division of Endocrinology, Diabetes, & Metabolism Endocrinology Note Patient Name: Will Jacinto : 1965 AGE: 57 y.o. [facility] Admission Date: 10/07/2023 Visit Date: 10/14/2023 Reason for Endocrine Consult: U-500 dosing, hypoglycemia Provider/Team Requesting Consult: YUNIER PCP: Jared Guzman Outpt Fur Storage Clerk: Dr. Lee ASSESSMENT: Type 2 diabetes with [...] and he presented to the hospital from skilled nursing for hypoglycemia/unresponsiveness due to poor PO intake. Type of DM: 2 Onset of DM: 1991 Home DM Medication Regimen: U-500 insulin - 285 units before breakfast/260 units before lunch/285 units before dinner , Trulicity 4.5 mg weekly DM control (last A1c/glucose data): 7.7% on current admission Resides at the [facility] Interim history: Patient was seen at bedside Poor PO intake yesterday due to nausea No vomiting or AP Nausea better today Ate BF -- 2 yogurts Not drinking Ensure, mostly diet Coke Pt was off his Pure wick - urinated on the bed pad ID following - on IV Abx Plan for DC to [facility] Glucose Date/Time Value Ref Range Status 10/14/2023 [...] before lunch/285 units before dinner Lactobacillus Acid-Pectin (Acidophilus/P[place]mouth Pectin) tablet 1 tablet, Oral, 2 times [...] found for: CHOLHDLRATIO No results found for: [id number] Lab Results Component Value Date TSH 2.356 11/26/2020 Radiology reportsas per the Radiologist Radiology: CT abdomen pelvis w contrast Result Date: 10/08/2023 Patient Name: WILL JACINTO : 1965 [facility]#: [id number] Exam Date/Time: 10/08/2023 09:36 Procedure: CT ABDOMEN [...] (HCC) Anxiety disorder Bipolar 1 disorder ([facility]) Blood circulation, collateral Cellulitis chronic L lower leg COVID 12/08/2021 Depression Diabetes mellitus ([facility]) Type II, on insulin Disease of blood and blood forming organ Endometrial carcinoma ([facility]) 11/25/2020 Endometrial hyperplasia Foot ulcer ([facility]) Hx of blood clots RLE prior to amputation Hyperlipidemia Hypertension Lymphedema 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, RLE Morbidly obese ([facility]) Muscle weakness Osteomyelitis ([facility]) Osteomyelitis ([facility]) 2019 RLE Other lack of coordination Other specified soft tissue disorders Other symbolic dysfunctions Schizophrenia ([facility]) Sleep apnea no CPAP Venous insufficiency Past Surgical History: Past Surgical History: Procedure Laterality Date ABCESS DRAINAGE Right 09/09/2018 FOOT; ACH COLONOSCOPY 09/19/[address] Hyde DILATION AND CURETTAGE OF UTERUS 05/18/2019 HYSTEROSCOPY 12/23/2021 LEG AMPUTATION THROUGH KNEE Right 06/16/2019 UPPER GASTROINTESTINAL ENDOSCOPY N/A 06/29/2023 Dr Sergio Sibley at [facility]; no specimens WISDOM TOOTH EXTRACTION Allergy(ies): No [...] were not included. Hospitalist Progress Note 10/14/2023 [phone]: Please page [facility] night Hospitalist for any [...] transgender (F2M). Initially presented from [facility] with hypoglycemia and unresponsiveness, POC glucose [...] (HCC) Anxiety disorder Bipolar 1 disorder ([facility]) Blood circulation, collateral Cellulitis chronic L lower [...] found for: "DDIMER", "PROCAL", "COVID19", "HGBA1C", "TSH", "[id number]", "FOLATE", "VITD25", "CHOL", "TRIG", "HDL", LDLCALC Urine [...] mg, Oral, q24h, Rachael Robertson APRN - ARCHITECTURAL DRAFTSPERSON, 10 mg at 10/13/23 1745 aspirin EC tablet 81 mg, 81 mg, Oral, Daily, Rachael Robertson APRN - ARCHITECTURAL DRAFTSPERSON, 81 mg at 10/13/23 0809 atorvastatin (Lipitor) tablet 10 mg, 10 mg, Oral, Nightly, Rachael Robertson APRN - ARCHITECTURAL DRAFTSPERSON, 10 mg at 10/13/23 214 clotrimazole (Lotrimin) 1 % cream, , Topical, BID, JEREMY Liao CNP, Given at 10/13/23 214 dextrose 5 % infusion, 100 mL/hr, IntraVENous, PRN, JEREMY Liao CNP, Stopped at 10/10/23 0552 dextrose 50 % solution 12.5 g, 12.5 g, IntraVENous, PRN, Rachael Robertson APRN - ARCHITECTURAL DRAFTSPERSON dilTIAZem CD (Cardizem CD) 24 hr capsule [...] mg, Oral, Daily, Rachael Robertson APRN - ARCHITECTURAL DRAFTSPERSON, 40 mg at 10/13/23 0809 gabapentin (Neurontin) capsule 100 mg, 100 mg, Oral, BID, Rachael Robertson APRN - ARCHITECTURAL DRAFTSPERSON, 100 mg at 10/13/23 214 glucagon (human [...] 40 mg, Oral, qAM AC, Rachael Robertson PRODUCT DISTRIBUTION SPECIALIST - ARCHITECTURAL DRAFTSPERSON, 40 mg at 10/14/23 0611 polyethylene glycol (PEG) 3350 (Miralax) packet 17 g, 17 g, Oral, Daily PRN, Rachael Robertson PRODUCT DISTRIBUTION SPECIALIST - ARCHITECTURAL DRAFTSPERSON polyethylene glycol (PEG) 3350 (Miralax) packet 17 g, 17 g, Oral, Daily, Rachael Robertson PRODUCT DISTRIBUTION SPECIALIST - ARCHITECTURAL DRAFTSPERSON, 17 g at 10/13/23 0809 prochlorperazine (Compazine) injection 5 mg, 5 mg, IntraVENous, q6h PRN, Mayda Olmstead MD, 5 mg at 10/13/23 2140 sodium chloride 0.9% (NS) flush 10 mL, 10 mL, IntraCATHeter, q12h, Funmi Askwe MD, 10 mL at 10/14/23 0314 sodium [...] - 10/15 - Location - [facility] - Pending the following - bed hold no auth req'd Marcio Armando MD [facility] Data: Moderate (3x CAT1 -OR- 1x CAT2 -OR- 1x CAT3) Complexity: Acute illness or injury posing a threat to life or body function (HIGH). Risk: Prescription drug/IVF/colloid was initiated, discontinued, adjusted; or reviewed with decision to maintain current orders (MOD). Estimated MDM: Medium (45175/33842) or higher Note: the above MDM determinations [...] SpO2 on RA, 75 HR, BG 232. DEAF/HARD OF HEARING SPECIALIST called. 2118 vitals: 152/75, HR 75, [id number]% on RA Department of Internal Medicine Division of Endocrinology, Diabetes, & Metabolism Endocrinology Note Patient Name: Will Jacinto : 1965 AGE: 57 y.o. Room/Bed: [facility]/W4-429 A Admission Date: 10/07/2023 Visit Date: 10/13/2023 Reason for Endocrine Consult: U-500 dosing, hypoglycemia Provider/Team Requesting Consult: YUNIER PCP: Jared Guzman Outpt Fur Storage Clerk: Dr. Lee ASSESSMENT: Type 2 diabetes with [...] and he presented to the hospital from skilled nursing for hypoglycemia/unresponsiveness due to poor PO intake. Type of DM: 2 Onset of DM: 1991 Home DM Medication Regimen: U-500 insulin - 285 units before breakfast/260 units before lunch/285 units before dinner , Trulicity 4.5 mg weekly DM control (last A1c/glucose data): 7.7% on current admission Resides at the [facility] Interim history: Patient was seen at bedside [...] before lunch/285 units before dinner Lactobacillus Acid-Pectin (Acidophilus/P[place]mouth Pectin) tablet 1 tablet, Oral, 2 times [...] found for: CHOLHDLRATIO No results found for: [id number] Lab Results Component Value Date TSH 2.356 [...] ENDOSCOPY N/A 06/29/2023 Dr Sergio Sibley at [facility]; no specimens WISDOM TOOTH EXTRACTION Allergy(ies): No [...] were not included. Hospitalist Progress Note 10/13/2023 [phone]: Please page [facility] night Hospitalist for any [...] transgender (F2M). Initially presented from [facility] with hypoglycemia and unresponsiveness, POC glucose [...] found for: "DDIMER", "PROCAL", "COVID19", "HGBA1C", "TSH", "[id number]", "FOLATE", "VITD25", "CHOL", "TRIG", "HDL", LDLCALC Urine [...] Oral, q4h PRN, Rachael Robertson APRN - ARCHITECTURAL DRAFTSPERSON, 650 mg at 10/13/23 0117 ARIPiprazole (Abilify) tablet 10 mg, 10 mg, Oral, q24h, Rachael Robertson APRN - ARCHITECTURAL DRAFTSPERSON, 10 mg at 10/12/23 1726 aspirin EC [...] MD Division of Hospitalist Medicine Inpatient Medical Services/[facility] Data: Moderate (3x CAT1 -OR- 1x CAT2 [...] of recurrent hypoglycemia (HIGH). Estimated MDM: High (55453/18447) Note: the above MDM determinations are made [...] 1965 AGE: 57 y.o. Room/Bed: [facility]/[address] Admission Date: 10/07/2023 Visit Date: 10/12/2023 Reason for Endocrine Consult: U-500 dosing, hypoglycemia Provider/Team Requesting Consult: [facility] PCP: Jared Guzman Outpt Fur Storage Clerk: Dr. Lee ASSESSMENT: Type 2 diabetes with [...] and he presented to the hospital from skilled nursing for hypoglycemia/unresponsiveness due to poor PO intake. Type of DM: 2 Onset of DM: 1991 Home DM Medication Regimen: U-500 insulin - 285 units before breakfast/260 units before lunch/285 units before dinner , Trulicity 4.5 mg weekly DM control (last A1c/glucose data): 7.7% on current admission Resides at the [facility] Interim history: Patient was seen at bedside [...] before lunch/285 units before dinner Lactobacillus Acid-Pectin (Acidophilus/P[place]mouth Pectin) tablet 1 tablet, Oral, 2 times [...] found for: CHOLHDLRATIO No results found for: [id number] Lab Results Component Value Date TSH 2.356 11/26/2020 Radiology reportsas per the Radiologist Radiology: CT abdomen pelvis w contrast Result Date: 10/08/2023 [facility] 1965 [id number] Exam Date/Time: 10/08/2023 09:36 Procedure: CT ABDOMEN [...] 10/07/2023 [facility]: [facility] 1965 [id number] Exam Date/Time: 10/07/2023 07:31 Procedure: XR CHEST [...] 10/07/2023 Patient Name: WILL JACINTO : 1965 [facility]#: [id number] Exam Date/Time: 10/07/2023 07:29 Procedure: CT HEAD [...] (HCC) Anxiety disorder Bipolar 1 disorder ([facility]) Blood circulation, collateral Cellulitis chronic L lower leg COVID 12/08/2021 Depression Diabetes mellitus ([facility]) Type II, on insulin Disease of blood and blood forming organ Endometrial carcinoma ([facility]) 11/25/2020 Endometrial hyperplasia Foot ulcer ([facility]) Hx of blood clots RLE prior to amputation Hyperlipidemia Hypertension Lymphedema MDRO (multiple drug resistant organisms) resistance hx CRE and MRSA in 2018, RLE Morbidly obese ([facility]) Muscle weakness Osteomyelitis ([facility]) Osteomyelitis (HCC) 2018 RLE Other lack of [...] ENDOSCOPY N/A 06/29/2023 Dr Sergio Sibley at [facility]; no specimens WISDOM TOOTH EXTRACTION Allergy(ies): No [...] from the original note were not included. [facility] - Infectious Diseases Attending [...] via PICC. Plan is to return to [facility] when medically stable. Objective- Vitals- Patient Vitals [...] be of moderate complexity. Mukul Coreas DO [facility] Infectious Diseases Office Tel. [phone] Images from the original note were not included. Hospitalist Progress Note 10/12/2023 [phone]: Please page [facility] night Hospitalist for any [...] transgender (F2M). Initially presented from [facility] with hypoglycemia and unresponsiveness, POC glucose [...] absence of other toe(s), unspecified side ([facility]) Anxiety disorder Bipolar 1 disorder ([facility]) Blood circulation, collateral Cellulitis chronic L lower leg COVID 12/08/2021 Depression Diabetes mellitus ([facility]) Type II, on insulin Disease of blood and blood forming organ Endometrial carcinoma ([facility]) 11/25/2020 Endometrial hyperplasia Foot ulcer ([facility]) Hx of blood clots RLE prior to amputation Hyperlipidemia Hypertension Lymphedema MDRO (multiple drug resistant organisms) resistance hx CRE and MRSA in 2018, RLE Morbidly obese ([facility]) Muscle weakness Osteomyelitis ([facility]) Osteomyelitis ([facility]) 2019 RLE Other lack of coordination Other specified soft tissue disorders Other symbolic dysfunctions Schizophrenia ([facility]) Sleep apnea no CPAP Venous insufficiency Objective: [...] found for: "DDIMER", "PROCAL", "COVID19", "HGBA1C", "TSH", "[id number]", "FOLATE", "VITD25", "CHOL", "TRIG", "HDL", LDLCALC Urine [...] sodium chloride 0.9 % 100 mL IVPB (Add-Glendive), 3,000 mg, IntraVENous, q6h, Skylar Larkin PA-C, [...] capsule 40 mg, 40 mg, Oral, Daily, JEREYM Liao CNP, 40 mg at 10/11/23 0941 [...] Oral, q6h PRN, Rachael Robertson APRN - ARCHITECTURAL DRAFTSPERSON, 4 mg at 10/11/23 204 pantoprazole (ProtoNix) EC tablet 40 mg, 40 mg, Oral, qAM AC, Rachael Robertson PRODUCT DISTRIBUTION SPECIALIST - ARCHITECTURAL DRAFTSPERSON, 40 mg at 10/12/23 0550 polyethylene glycol (PEG) 3350 (Miralax) packet 17 g, 17 g, Oral, Daily PRN, Rachael Robertson PRODUCT DISTRIBUTION SPECIALIST - ARCHITECTURAL DRAFTSPERSON polyethylene glycol (PEG) 3350 (Miralax) packet 17 g, 17 g, Oral, Daily, Rachael Robertson PRODUCT DISTRIBUTION SPECIALIST - ARCHITECTURAL DRAFTSPERSON, 17 g at 10/08/23 1042 prochlorperazine (Compazine) [...] endocrine recs Marcio Armando MD [facility] Data: Extensive (Two out of three: 3x CAT1, 1x CAT2, 1x CAT3) Complexity: Acute illness or injury posing a threat to life or body function (HIGH). Risk: Prescription drug/IVF/colloid was initiated, discontinued, adjusted; or reviewed with decision to maintain current orders (MOD). Use/consideration of a therapy requiring intensive monitoring (HIGH). Estimated MDM: High (35820/20025) Note: the above MDM determinations are made [...] loss Fluid Accumulation: No significant fluid accumulation Tire Shop Manager Strength: Not Performed Nutrition Assessment: Patient is a 57-year-old transgender male with history of type 2 diabetes, hypertension, hyperlipidemia, diabetic polyneuropathy, s/p right AKA and he presented to the hospital from skilled nursing for hypoglycemia/unresponsiveness. Per notes patient has had poor p.o. intake for the last 4 days in addition to nausea and vomiting. However it appears that he was noted to be unresponsive and was found to have a blood glucose of 36 in the skilled nursing. Patient had received 260 units of U-500 [...] Stated he was drinking "health shakes" at skilled nursing 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 CONSULTANT. Patient requesting to have Ensure HP 3x/day. [...] (kg): 53 kg Total Energy Requirements (kcals/day): 3466-7246 (30-35) Weight Used for Protein Requirements: Adjusted [...] 152 kg (335 lb) (03/08/23 Deedee scale) [place] Body Weight (lbs) (Calculated): 130 lbs [place] Body Weight (Kg) (Calculated): 59 kg Weight Adjustment For: Amputation % Weight Adjustment: 10.1 - AKA Total Adjusted Percentage (Calculated): 10.1 Adjusted [place] Body Weight (lbs) (Calculated): 116.9 lbs Adjusted [place] Body Weight (kg) (Calculated): 53.14 kg BMI [...] MS RD LD Contact: epic chat or *[phone] Images from the original note were not included. [facility] - Infectious Diseases Attending Progress [...] IV ampicillin/sulbactam. Plan is to return to [facility] when medically stable. Objective- Vitals- Patient [...] be of moderate complexity. Mukul Coreas DO [facility] Infectious Diseases Office Tel. [phone] Department of Internal Medicine Division of Endocrinology, Diabetes, & Metabolism Endocrinology Note Patient Name: Will Jacinto : 1965 AGE: 57 y.o. [facility] Admission Date: 10/07/2023 Visit Date: 10/11/2023 Reason for Endocrine Consult: U-500 dosing, hypoglycemia Provider/Team Requesting Consult: YUNIER PCP: Jared Guzman Outpt Fur Storage Clerk: Dr. Lee ASSESSMENT: Type 2 diabetes with [...] and he presented to the hospital from skilled nursing for hypoglycemia/unresponsiveness. Patient had received 260 units [...] before lunch/285 units before dinner Lactobacillus Acid-Pectin (Acidophilus/P[place]mouth Pectin) tablet 1 tablet, Oral, 2 times [...] found for: CHOLHDLRATIO No results found for: [id number] Lab Results Component Value Date TSH 2.356 [...] 10/07/2023 [facility] 1965 [id number] Exam Date/Time: 10/07/2023 07:29 Procedure: CT HEAD [...] MRSA in 2018, RLE Morbidly obese ([facility]) Muscle weakness Osteomyelitis (HCC) Osteomyelitis (HCC) 2019 RLE Other lack of coordination Other specified soft tissue disorders Other symbolic dysfunctions Schizophrenia ([facility]) Sleep apnea no CPAP Venous insufficiency Past Surgical History: Past Surgical History: Procedure Laterality Date ABCESS DRAINAGE Right 09/09/2018 FOOT; ACH COLONOSCOPY 09/19/[address] Hyde DILATION AND CURETTAGE OF UTERUS 05/18/2019 HYSTEROSCOPY 12/23/2021 LEG AMPUTATION THROUGH KNEE Right 06/16/2019 UPPER GASTROINTESTINAL ENDOSCOPY N/A 06/29/2023 Dr Sergio Sibley at [facility]; no specimens WISDOM TOOTH EXTRACTION Allergy(ies): No [...] were not included. Hospitalist Progress Note 10/11/2023 [phone]: Please page IMS night Hospitalist for any [...] transgender (F2M). Initially presented from [facility] with hypoglycemia and unresponsiveness, POC glucose [...] sodium chloride 0.9 % 100 mL IVPB (Add-Glendive), 3,000 mg, IntraVENous, q6h, Skylar Larkin PA-C, [...] Oral, q6h PRN, Rachael Robertson APRN - ARCHITECTURAL DRAFTSPERSON, 4 mg at 10/10/23 204 pantoprazole (ProtoNix) EC tablet 40 mg, 40 mg, Oral, qAM AC, Rachael Robertson APRN - ARCHITECTURAL DRAFTSPERSON, 40 mg at 10/11/23 0614 polyethylene glycol (PEG) 3350 (Miralax) packet 17 g, 17 g, Oral, Daily PRN, Rachael Robertson APRN - KRANTHI polyethylene glycol (PEG) 3350 (Miralax) packet 17 g, 17 g, Oral, Daily, Rachael Robertson APRN - ARCHITECTURAL DRAFTSPERSON, 17 g at 10/08/23 1042 prochlorperazine (Compazine) [...] MD Division of Hospitalist Medicine Inpatient Medical Services/[facility] Data: Moderate (3x CAT1 -OR- 1x CAT2 -OR- 1x CAT3) Complexity: Acute illness or injury posing a threat to life or body function (HIGH). Risk: Use/consideration of therapy requiring intensive monitoring: parenteral cardioactive electrolyte repletion, ex: calcium gluconate, magnesium, potassium (rapid hypotension, arrhythmias or arrest); telemetry, BMP (HIGH). Estimated MDM: High (06586/33195) Note: the above MDM determinations are made by me for my own use to estimate my end-of-day billing codes. However, documentation is reviewed by professional coders; following their review of documentation, and in accordance with current AMA CPT, CMS, and ACDIS guidelines, the actual billing code(s) may differ from my estimate. [facility] Respiratory Care Department Progress Note Comment [...] from the original note were not included. [facility] - Infectious Diseases Advanced [...] Tray (Disposables); 5 carb choices (75 gm/meal) @[id number]@ 24HR INTAKE/OUTPUT: Intake/Output Summary (Last 24 hours) [...] 10/10/2023 Division of Hospitalist Medicine Inpatient Medical Services/[facility] PAGER: [phone] Department of Internal Medicine Division of Endocrinology, Diabetes, & Metabolism Endocrinology Note Patient Name: Will Jacinto : 1965 AGE: 57 y.o. [facility] Admission Date: 10/07/2023 Visit Date: 10/10/2023 Reason for Endocrine Consult: U-500 dosing, hypoglycemia Provider/Team Requesting Consult: IMS PCP: Jared Guzman Outpt Fur Storage Clerk: Dr. Lee ASSESSMENT: Type 2 diabetes with [...] and he presented to the hospital from skilled nursing for hypoglycemia/unresponsiveness. Patient had received 260 units [...] before lunch/285 units before dinner Lactobacillus Acid-Pectin (Acidophilus/Plymouth Pectin) tablet 1 tablet, Oral, 2 times [...] found for: CHOLHDLRATIO No results found for: [id number] Lab Results Component Value Date TSH 2.356 [...] tissue disorders Other symbolic dysfunctions Schizophrenia ([facility]) Sleep apnea no CPAP Venous insufficiency Past Surgical History: Past Surgical History: Procedure Laterality Date ABCESS DRAINAGE Right 09/09/2018 FOOT; [facility] COLONOSCOPY 09/19/[address] Hyde DILATION AND CURETTAGE OF UTERUS 05/18/2019 HYSTEROSCOPY 12/23/2021 LEG AMPUTATION THROUGH KNEE Right 06/16/2019 UPPER GASTROINTESTINAL ENDOSCOPY N/A 06/29/2023 Dr Sergio Sibley at [facility]; no specimens WISDOM TOOTH EXTRACTION Allergy(ies): No [...] the date of this note. [facility] Respiratory Care Department Progress Note Comment [...] Tray (Disposables); 5 carb choices (75 gm/meal) @[id number]@ 24HR INTAKE/OUTPUT: Intake/Output Summary (Last 24 hours) [...] (HCC) Anxiety disorder Bipolar 1 disorder ([facility]) Blood circulation, collateral Cellulitis chronic L lower leg COVID 12/08/2021 Depression Diabetes mellitus ([facility]) Type II, on insulin Disease of blood and blood forming organ Endometrial carcinoma ([facility]) 11/25/2020 Endometrial hyperplasia Foot ulcer ([facility]) Hx of blood clots RLE prior to amputation Hyperlipidemia Hypertension Lymphedema MDRO (multiple drug resistant organisms) resistance hx CRE and MRSA in 2018, RLE Morbidly obese ([facility]) Muscle weakness Osteomyelitis (HCC) Osteomyelitis (HCC) 2019 RLE Other lack of coordination Other specified soft tissue disorders Other symbolic dysfunctions Schizophrenia ([facility]) Sleep apnea no CPAP Venous insufficiency LABS: [...] : Mayda Olmstead MD 10/09/2023 [facility] PAGER: [phone] Vancomycin therapy has been discontinued by Skylar [...] Consult: U-500 dosing, hypoglycemia Provider/Team Requesting Consult: [facility] PCP: Jared Guzman Outpt Fur Storage Clerk: Dr. Lee ASSESSMENT: Type 2 diabetes with [...] and he presented to the hospital from skilled nursing for hypoglycemia/unresponsiveness. Patient had received 260 units [...] before lunch/285 units before dinner Lactobacillus Acid-Pectin (Acidophilus/Plymouth Pectin) tablet 1 tablet, Oral, 2 times [...] found for: CHOLHDLRATIO No results found for: [id number] Lab Results Component Value Date TSH 2.356 [...] ENDOSCOPY N/A 06/29/2023 Dr Sergio Sibley at [facility]; no specimens WISDOM TOOTH EXTRACTION Allergy(ies): No [...] Entered doses and random Vancomycin level into [employer] [facility]. Current dosing regimen is Vancomycin 1500 milligrams Q 12 hours has predicted AUC of 526 mg/L*hr. Continue current dosing regimen. Will obtain random Vancomycin level with morning labs on or before 10/16/23. Will continue to follow renal function closely. Please page/call with questions. Date: 10/09/23 Time: 7:20 AM Name: Thais Esqueda RPh, PharmD Phone: [phone] Images from the original note were not included. Hospitalist Progress Note Subjective: Admit Date: 10/07/2023 PCP: Jared Guzman Room#: W4-429/W4-429 A Interval History: PT reports nausea, vomiting improved, no diarrhea, abd pain improved since admission, LLE erythema has been present for many years, no pain in his LLE. no other complaints. Adult diet Full liquid; 5 carb choices (75 gm/meal) @[id number]@ 24HR INTAKE/OUTPUT: Intake/Output Summary (Last 24 hours) [...] tissue disorders Other symbolic dysfunctions Schizophrenia ([facility]) Sleep apnea no CPAP Venous insufficiency LABS: [...] 10/08/2023 Division of Hospitalist Medicine Inpatient Medical Services/[facility] PAGER: [phone] Pharmacy Managed Vancomycin Dosing Service Consult Note [...] AM Ezio Orr PharmD Available via Secure Chat/PlaySquare documented in this encounter [facility] 10-16-2023 Nurse Note Report called to [facility]. Nursing aware of transport time [...] for admit orders. documented in this encounter [facility] 10-16-2023 Hospital course Narrative Images from [...] bacteria Sepsis without acute organ dysfunction ([facility]) Diabetic gastroparesis associated with type 2 diabetes mellitus ([facility]) ([facility]) Type 2 diabetes mellitus with hyperglycemia, with long-term current use of insulin ([facility]) Class 3 severe obesity due to excess calories with serious comorbidity and body mass index (BMI) of 60.0 to 69.9 in adult ([facility]) HOSPITAL COURSE: Patient admitted 10/07/2023 for hypoglycemia 2/2 insulin use with poor PO intake, hypothermia, ?sepsis. 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 Initially presented from [facility] with hypoglycemia and unresponsiveness, POC glucose [...] 325 MG tablet Commonly known as: Tylenol Acidophilus/Plymouth Pectin tablet ARIPiprazole 10 MG tablet Commonly [...] DISPOSITION: Skilled Facility FACILITY/HOME CARE AGENCY NAME: [facility] DISCHARGE TIME: 40 minutes SIGNED: Marcio Armando MD 10/16/2023, 5:31 PM See today's progress note for physical exam. documented in this encounter [facility] 10-16-2023 Miscellaneous Notes Discharge med list transmitted to [facility] via Careport per TCC request. Discharge order is in place, but contingent upon what pt's blood sugar will be at dinner. Tasked METAL WIRE COATING OPERATOR to send discharge paperwork to [facility]. Spoke with BEE Herron at the facility to inform her of probable discharge at 6:30. TCC made DOOR MACHINE OPERATOR aware the DC may be cancelled depending on his blood sugars tonight with dinner. DOOR MACHINE OPERATOR verbalized understanding. Pt also made aware of probable dc back to facility tonight. TCC to follow and assist as needed. MAR and updated notes placed to [facility] via Careport per TCC request. Await review and response regarding ability to accept. TCC notified. TCC informed that pt can go back to [facility] as long as blood sugar is acceptable after dinner. Was asked to arrange transportation, under the assumption that pt will be discharged. Transportation set for 6:30 with [employer]. Transportation form on chart. Pt is LTC LOC and does not need 7000 or auth. Tasked METAL WIRE COATING OPERATOR to send MAR to facility. Once [...] Glucose 528. Endocrine continues to follow. DCP: [facility] when clinically stable. TCC to [...] 8 GMLOS: 5.1 [facility] per TCC request. Images from the original note were not included. Care Management Progress Note Pt remains on 4W. Positive blood cultures. PICC. Invanz Q24h until 10/21. Order in Media. Endocrine following, adjusting insulin improved to 250 this morning. DCP: [facility] when clinically stable. TCC to follow. Discharge [...] further issues IV ABX/COPAT placed to - [facility] via Careport per TCC request. Images from the original note were not included. Care Management Progress Note Pt remains on 4W. Positive blood cultures. PICC. Invanz Q24h until 10/21. Order in Media. Na 129. Endocrine following, adjusting insulin. DCP: [facility]. TCC to follow. Discharge Milestones [...] Endo, ID following. DC plan: return to [facility] when clinically stable. Bed hold, [...] Infectious Disease following. Plan is return to [facility] when medically stable. Bed hold [...] 4 GMLOS: 4.1 Return referral placed to [facility] via Careport per TCC request. Await review and response regarding ability to accept. TCC notified. Care Managment Initial Assessment Date: 10/08/2023 Patient Name: Will Jacinto : 1965 Patient Information Source of Information: Patient Cognition/Language: Impaired Permission given to speak with patient rental sales representative/caregiver as indicated: Confirmation of Payer with patient/family: Payer Name: [facility] [place]: No Confirmation of Primary Care Physician: Primary Caregiver: If assistance needed, confirmed caregiver ready, willing and able to care for patient at discharge: Yes Confirmed with: Living Arrangements Current Residence: Number of Floors Number of Entry Steps: Bed/Bath Levels: Facility: [facility] Facility Name: [facility] Plan to Return: Yes Lives [...] Plan Patient expects to be discharged to: [facility]. Discharge Planning Actions: Patient's Choice Rights and [employer] and Collaborative Relationships Disclosed as Indicated for Post-Acute Care: Interdisciplinary Team Engagement: Social Work Referral for: Additional Information: [place] per patient. Lives at [facility]. Plan is return at discharge. Referral in [facility]. Demetria Robertson RN Problem: Safety - Adult [...] include monitor bglucose. documented in this encounter [facility] 10-13-2023 Hospital Discharg e instructions Gricelda [...] ENDOSCOPY N/A 06/29/2023 Dr Sergio Sibley at [facility]; no specimens WISDOM TOOTH EXTRACTION Immunization History: Immunization History Administered Date(s) Administered Covid-19, Pfizer [facility], Do Not Dilute, (Age 12 Y+), Im, L 02/26/2022 Influenza, injectable, quadrivalent, preservative free 01/14/2019, 08/12/2021 [facility] SARS-CoV-2 Vaccination 11/13/2020, 12/04/2020, 08/28/2021 Active Problems: Medical Problems Problem List * (Principal) Hypoglycemia Hypertension Chest pain Chest pain, unspecified type Upper abdominal pain Abdominal pain Endometrial carcinoma (HCC) Endometrial hyperplasia Diabetic hyperosmolar non-ketotic state (CMS/HCC) ([facility]) Thickened endometrium Ileus (CMS/HCC) (HCC) Complex endometrial hyperplasia with atypia Diabetic gastroparesis associated with type 2 diabetes mellitus ([facility]/HCC) ([facility]) Esophagitis Nausea and vomiting Hyperlipidemia Cellulitis and abscess of lower extremity Chronic acquired lymphedema Cellulitis Hyperandrogenism Uncontrolled type 2 diabetes mellitus with complication Chronic osteomyelitis ([facility]) ([facility]) 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 ([facility]) Class 3 severe obesity due to excess calories with serious comorbidity and body mass index (BMI) of 50.0 to 59.9 in adult ([facility]) Type 2 diabetes mellitus with hyperglycemia, with long-term current use of insulin ([facility]) Hyperglycemia Post-menopausal bleeding Morbid obesity ([facility]) Left leg cellulitis Diabetic foot infection S/P AKA (above knee amputation) unilateral, right ([facility]) Class 3 severe obesity due to excess calories with serious comorbidity and body mass index (BMI) of 60.0 to 69.9 in adult ([facility]) Isolation/Infection: Contact MRSA, MDRO Nurse Assessment: Last [...] assistance Toileting Total assistance Feeding Minimal assistance Order Analyst Minimal assistance Med Delivery yes Wound Care [...] Score: @READMISSIONRISKDETAILS@ Discharging to Facility/ Agency Name: [facility] Address: [address] [place] [address] Dialysis Facility (if applicable) Name: Address: Dialysis Schedule: Phone: Fax: Industrial Gas Production Operator/Body Piercer signature: ICIAN SECTION Prognosis: good Condition at [...] the diagnosis listed and that he requires prison facility for greater than 30 days. Update Admission H&P: No change in H&P PHYSICIAN SIGNATURE: documented in this encounter [facility] 10-12-2023 Procedure note Associated Ord er(s): [...] lumen Catheter size: 5 Fr Lot #: [id number] Trimmed at (cm): 41 Inserted at (cm): 41 Ultrasound guidance: Yes Post-procedure: Post-procedure: Antimicrobial dressing applied and securement device Description/Findings: Flushes easily and blood returned Estimated blood loss: < 5 mL Specify complication(s): No apparent complications Follow-up chest x-ray: Ordered General Comments: Infiltrated PIV site right AC, tender red IV right wrist documented in this encounter [facility] 10-09-2023 Consult note Associated Order (s): IP CONSULT TO INFECTIOUS DISEASES Images from the original note were not included. [facility] - Infectious Diseases Advanced Practice Provider [...] was found unresponsive and diaphoretic in the rug renovator; POC glucose 36. He was given 2 [...] leg COVID 12/08/2021 Depression Diabetes mellitus ([facility]) Type II, on insulin Disease of blood [...] ENDOSCOPY N/A 06/29/2023 Dr Sergio Sibley at [facility]; no specimens WISDOM TOOTH EXTRACTION Current Medications: [...] mg Oral BID Rachael Robertson APRN - KRANTIH 100 mg at 10/09/23 0856 glucagon (human [...] mg Oral BID Rachael Robertson APRN - ARCHITECTURAL DRAFTSPERSON 25 mg at 10/09/23 0855 ondansetron (Zofran) tablet 4 mg 4 mg Oral q6h PRN Rachael Robertson APRN - KRANTHI 4 mg at 10/08/23 2044 pantoprazole (ProtoNix) EC tablet 40 mg 40 mg Oral qAM AC Rachael Robertson APRN - ARCHITECTURAL DRAFTSPERSON 40 mg at 10/09/23 0654 piperacillin-tazobactam (Zosyn) IVPB 3,375 mg 3,375 mg IntraVENous q8h Rachael Robertson APRN - KRANTHI Stopped at 10/09/23 0645 polyethylene glycol (PEG) 3350 (Miralax) packet 17 g 17 g Oral Daily PRN Rachaeljenny Robertson, PRODUCT DISTRIBUTION SPECIALIST - ARCHITECTURAL DRAFTSPERSON polyethylene glycol (PEG) 3350 (Miralax) packet 17 g 17 g Oral Daily Rachael Robertson, PRODUCT DISTRIBUTION SPECIALIST - ARCHITECTURAL DRAFTSPERSON 17 g at 10/08/23 1042 vancomycin (Vancocin) 1500 mg in NS 250 mL IVPB (compounded premix) 1,500 mg IntraVENous q12h Rachael Robertson, PRODUCT DISTRIBUTION SPECIALIST - ARCHITECTURAL DRAFTSPERSON 125 mL/hr at 10/09/23 0656 1,500 mg [...] Consult: U-500 dosing, hypoglycemia Provider/Team Requesting Consult: [facility] PCP: Jared Guzman Outpt Fur Storage Clerk: Dr. Lee ASSESSMENT: Type 2 diabetes with [...] and he presented to the hospital from skilled nursing for hypoglycemia/unresponsiveness. Per notes patient has had [...] a blood glucose of 36 in the skilled nursing. Patient had received 260 units of U-500 [...] before lunch/285 units before dinner Lactobacillus Acid-Pectin (Acidophilus/Plymouth Pectin) tablet 1 tablet, Oral, 2 times [...] found for: CHOLHDLRATIO No results found for: [id number] Lab Results Component Value Date TSH 2.356 [...] 10/07/2023 Patient Name: WILL JACINTO : 1965 [facility]#: [id number] Exam Date/Time: 10/07/2023 07:31 Procedure: XR CHEST [...] 10/07/2023 [facility] 1965 [id number] Exam Date/Time: 10/07/2023 07:29 Procedure: CT HEAD [...] ENDOSCOPY N/A 06/29/2023 Dr Sergio Sibley at [facility]; no specimens WISDOM TOOTH EXTRACTION Allergy(ies): No [...] Consulted By: Rachael Robertson CNP Room:[facility]429 A Patient Name: Will Jacinto Allergies: Patient [...] via Secure Chat documented in this encounter [facility] 10-07-2023 History and physical note Images [...] who presents to the emergency department from [facility] for hypoglycemia/unresponsiveness. Staff nurse at facility [...] intake for dinner at 5p (?some soup). Clzsi-sw-scon glucose last night was 116 and he was given 3 glasses of apple juice prior to bed. Found unresponsive and diaphoretic at 0445 this a.m. Fqfdc-ja-sjsn glucose 36 at that time. Given 2 doses of glucagon which improved his tewvk-gs-ibft glucose to 61. 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, RLE Morbidly obese ([facility]) Muscle weakness Osteomyelitis (HCC) Osteomyelitis ([facility]) 2019 RLE Other lack of coordination Other specified soft tissue disorders Other symbolic dysfunctions Schizophrenia ([facility]) Sleep apnea no CPAP Venous insufficiency Past Surgical History: Past Surgical History: Procedure Laterality Date ABCESS DRAINAGE Right 09/09/2018 FOOT; [facility] COLONOSCOPY 09/19/[address] Hyde DILATION AND CURETTAGE OF UTERUS 05/18/2019 HYSTEROSCOPY 12/23/2021 LEG AMPUTATION THROUGH KNEE Right 06/16/2019 UPPER GASTROINTESTINAL ENDOSCOPY N/A 06/29/2023 Dr Sergio Sibley at [facility]; no specimens WISDOM TOOTH EXTRACTION Social History: [...] before lunch/285 units before dinner Lactobacillus Acid-Pectin (Acidophilus/Plymouth Pectin) tablet Take 1 tablet by mouth [...] Mobile Relation: Other Rachael Robertson APRN - [facility] Division of Hospitalist Medicine Inpatient Medical Services/[facility] Associated attestation - Carly Nino MD - 10/08/2023 6:08 PM EST I have reviewed the case with the PA/THREAD SPINNER. I agree with the current plan of [...] performed. Rounding Hospitalist documented in this encounter [facility] 10-07-2023 Emergency department Note Physician's ambulance arrived for transport. Hand off report given to medics. Breonna Palmer RN 10/07/23 7908 Phoned [facility] 4W. Hand off report given to PASTORA Martínez. Breonna Palmer RN 10/07/23 1444 Patient given orange juice. Breonna Palmer RN 10/07/23 1423 Phoned PASTORA Ochoa at [facility] and gave update that patient is to be admitted to [facility] and is currently in stable condition. RN [...] this time. Breonna Palmer RN 10/07/23 0952 [place] warmer removed from patient. Oral temp 97.5 [...] who presents to the emergency department from [facility] for hypoglycemia/unresponsiveness. Spoke to Juliane, nurse taking care of him overnight, who reports he was last seen well at 0400 this morning when he asked supervisor public health nursing to turn on fan because he [...] intake for dinner at 5p (?some soup). Lqtxk-ke-isrb glucose last night was 116 and he was given 3 glasses of apple juice prior to bed. Found unresponsive and diaphoretic at 0445. Vmlhu-do-hmop glucose 36 at that time. Given 2 doses of glucagon which improved his wtker-fk-pyao glucose to 61. Glucose was 90 upon EMS arrival. EMS gave nothing in transport. Repeat lyurt-by-rxug glucose 68 here. Juliane reports that mentation [...] (HCC) Anxiety disorder Bipolar 1 disorder ([facility]) Blood circulation, collateral Cellulitis chronic L lower leg COVID 12/08/2021 Depression Diabetes mellitus ([facility]) Type II, on insulin Disease of blood [...] tissue disorders Other symbolic dysfunctions Schizophrenia ([facility]) Sleep apnea no CPAP Venous insufficiency SURGICAL HISTORY Past Surgical History: Procedure Laterality Date ABCESS DRAINAGE Right 09/09/2018 FOOT; [facility] COLONOSCOPY 09/19/[address] Hyde DILATION AND CURETTAGE OF UTERUS 05/18/2019 HYSTEROSCOPY 12/23/2021 LEG AMPUTATION THROUGH KNEE Right 06/16/2019 UPPER GASTROINTESTINAL ENDOSCOPY N/A 06/29/2023 Dr Sergio Sibley at [facility]; no specimens WISDOM TOOTH EXTRACTION CURRENT MEDICATIONS [...] Abnormal Glucose 68 (*) Narrative: Performed by: [facility], [address] [place] [address] CLIA ID: [id number] LACTIC ACID WITH REFLEX - Normal LACTIC ACID 1.2 POCT GLUCOSE METER UNSOLICITED RESULTS - Normal Glucose 100 Narrative: Performed by: [facility], [address] [place] [address] CLIA ID: [id number] BLOOD CULTURE URINE CULTURE RESPIRATORY PATHOGENS PANEL BY PCR BLOOD CULTURE COMPLETE URINALYSIS WITH REFLEX TO CULTURE Narrative: The following orders were created for panel order Urinalysis Complete with reflex to Culture. Procedure Abnormality Status --------- ------ Complete Urinalysis[[id number]] Please view results for these tests on [...] who presents to the emergency department from [facility] for hypoglycemia/unresponsiveness. Spoke to Juliane, nurse taking care of him overnight, who reports he was last seen well at 0400 this morning when he asked supervisor public health nursing to turn on fan because he felt warm. Entirety of HPI obtained from transporting EMS staff and [place] staff due to patient unresponsiveness. Juliane reports [...] intake for dinner at 5p (?some soup). Eiopg-tt-jyfs glucose last night was 116 and he was given 3 glasses of apple juice prior to bed. Found unresponsive and diaphoretic at 0445. Vumer-pz-jiej glucose 36 at that time. Given 2 doses of glucagon which improved his jkrak-ja-arhv glucose to 61. Glucose was 90 upon EMS arrival. EMS gave nothing in transport. Repeat okobo-nv-uywz glucose 68 here. Juliane reports that mentation [...] necessitating ultrasound-guided IV line by myself. Repeat aqzua-hl-vsyc glucose upon obtaining IV line 100. Amp [...] nontender on repeat evaluation. Disposition changed to [facility] telemetry. Accepted by Dr. Spring [...] Jacinto, age 57, came to ED6 by [facility] for a chief complaint of hypoglycemia. [facility] stated skilled nursing last seen him Aox3 at around 0400. welfare service aide went in to check on pt and pt was unresponsive with a blood sugar of 36. Nurses at skilled nursing gave him 2 glucagon IM injections and pt's blood sugar came up to 60. EMS reported a blood sugar of 90. On assessment, pt's rectal temp was 91.4F. Blood sugar was 63. Bear hugger applied. Physician put in 20G IV using the ultrasound. Amp of Dextrose given and liter of NS warmed infusing. roving department end finder applied. Vitals obtained. documented in this encounter [facility] 09-20-2023 Telephone encounter Note Please keep doses the same thank you [facility] [employer] Work Phone: 09-20-2023 Miscellaneous Notes Please keep doses the same thank you Images from the original note were not included. Patient BGL documented in this encounter [facility] 09-20-2023 Telephone encounter Note Images from the original note were not included. Patient BGL [facility] 08-31-2023 Telephone encounter Note Faxed response to [facility]. Thank you! [facility] 08-31-2023 Miscellaneous Notes Faxed response to [facility]. Thank you! Please keep doses the same thank you Images from the original note were not included. Patient's BGL documented in this encounter [facility] [employer] 08-30-2023 Telephone encounter Note Please keep doses the same thank you [facility] [employer] Work Phone: 08-30-2023 Telephone encounter Note Images from the original note were not included. Patient's BGL [facility] 08-19-2023 Note Formatting of this n ote might be different from the original. RN called asking me to sign the med rec so the patient can be transported to < Signed the med reconciliation form [facility] [employer] Work Phone: 08-19-2023 Note Formatting of this n ote might be different from the original. RN called asking me to sign the med rec so the patient can be transported to < [facility] Work Phone: 08-19-2023 Miscellaneous Notes RN called asking me to sign the med rec so the patient can be transported to SNF< Signed the med reconciliation form Spoke with patient. Agreeable to returning back to [facility]. Updated facility via careport of discharge today and transport time of 430pm. METAL WIRE COATING OPERATOR tasked to send discharge packet to facility. . Plan for patient to discharge today. Discharge order has been placed. Transportation arranged through [facility] by cot set for 4:30 pm. Notified RN and covering TCC of this. Will update patient at bedside. SW remains available if any other needs or concerns arise. Discharge med list transmitted to return back to [facility] per TCC request. Referral placed to return back to [facility] via [facility] per TCC request. Await review and response regarding ability to accept. TCC notified. Inpatient status from [facility] with abdominal pain. Admitted to [...] iv x 1 throughout the night.Did task METAL WIRE COATING OPERATOR to send referral to [facility]. Discharge plan is to return to [facility] when medically stable... Problem: Pain Goal: My pain/discomfort is manageable Outcome: Progressing met Ice therapy offer/repositioning Problem: Safety Goal: Patient will be injury free during hospitalization Outcome: Progressing met Educate on using call light/ frequent rounding documented in this encounter [facility] 08-19-2023 History of Presen t illness Narrative Report called to Ana at [facility]. Department of Internal Medicine Division of Endocrinology, Diabetes, & Metabolism Endocrinology Note Patient Name: Will Jacinto : 1965 AGE: 57 y.o. Room/Bed: [facility] A Admission Date: 08/17/2023 Visit Date: 08/19/2023 Reason for Endocrine Consult: DM2 Uncontrolled Provider/Team Requesting Consult: Dr. Hill PCP: Jared Guzman Outpt Fur Storage Clerk: Yes [facility] endocrinology Last seen 02/09/2023, Next appointment 10/27/2023 ASSESSMENT: Type 2 diabetes mellitus with hyperglycemia with intermodal dispatcher insulin use Leukocytosis Bipolar disorder Dm2 severe [...] units 3 times daily with meals Follow-up: [facility] endocrinology SUBJECTIVE/HPI: CHIEF COMPLAINT: Chief Complaint [...] before lunch/285 units before dinner Lactobacillus Acid-Pectin (Acidophilus/Plymouth Pectin) tablet 1 tablet, Oral, 2 times [...] found for: CHOLHDLRATIO No results found for: [id number] Lab Results Component Value Date TSH 2.356 [...] ENDOSCOPY N/A 06/29/2023 Dr Sergio Sibley at [facility]; no specimens WISDOM TOOTH EXTRACTION Allergy(ies): No [...] from the original note were not included. [facility] - Infectious Diseases Attending [...] be of moderate complexity. Art Reddy MD, [facility] Nutrition rescreen complete. Pt assigned a level one for nutrition care. Images from the original note were not included. PHYSICAL THERAPY [facility] Name/MRN: Maria Luisa Jacinto ([id number]) Date: 08/18/2023 PT evaluation orders received and chart review completed. Pt from nursing facility and lives there intermodal dispatcher. 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 No acute PT needs identified. Rec return to [facility] with no PT. Mai Argueta PT Images from the original note were not included. Occupational Therapy OCCUPATIONAL THERAPY [facility] Name/MRN: Maria Luisa Jacinto ([id number]) Date: 08/18/2023 Therapy eval and treat orders [...] Scooter Wyatt OT documented in this encounter [facility] 08-19-2023 Note Formatting of this n ote might be different from the original. Spoke with patient. Agreeable to returning back to [facility]. Updated facility via careport of discharge today and transport time of 430pm. [facility] tasked to send discharge packet to facility. . [facility] 08-19-2023 Note Formatting of this n ote might be different from the original. Spoke with patient. Agreeable to returning back to [facility]. Updated facility via careport of discharge today and transport time of 430pm. [facility] tasked to send discharge packet to facility. . [facility] 08-19-2023 Note Formatting of this n ote might be different from the original. Plan for patient to discharge today. Discharge order has been placed. Transportation arranged through [facility] by cot set for 4:30 pm. Notified RN and covering TCC of this. Will update patient at bedside. SW remains available if any other needs or concerns arise. [facility] 08-19-2023 Note Formatting of this n ote might be different from the original. Plan for patient to discharge today. Discharge order has been placed. Transportation arranged through [facility] by cot set for 4:30 pm. Notified RN and covering TCC of this. Will update patient at bedside. SW remains available if any other needs or concerns arise. T [facility] 08-19-2023 Note Formatting of this n ote might be different from the original. Discharge med list transmitted to return back to [facility] via [facility] per TCC request. T [facility] 08-19-2023 Note Formatting of this n ote might be different from the original. Discharge med list transmitted to return back to [facility] via [facility] per TCC request. [facility] 08-19-2023 Hospital course Narrative Discharge Summary [...] August 20, 2023 CONTINUE taking these medications Acidophilus/Plymouth Pectin tablet ARIPiprazole 10 MG tablet Commonly [...] Complexity: follow up within 7-14 calendar days (97655) [] Severe Complexity: follow up within 7 calendar days (53743) FOLLOW UP TESTING, PENDING RESULTS OR REFERRALS [...] 08/19/2023, 10:09 AM documented in this encounter [facility] 08-19-2023 Note Formatting of this n ote might be different from the original. Referral placed to return back to [facility] via [facility] per TCC request. Await review and response regarding ability to accept. TCC notified. [facility] 08-19-2023 Note Formatting of this n ote might be different from the original. Referral placed to return back to [facility] via [facility] per TCC request. Await review and response regarding ability to accept. TCC notified. [facility] 08-19-2023 Hospital Discharg e instructions Kota [...] ENDOSCOPY N/A 06/29/2023 Dr Sergio Sibley at [facility]; no specimens WISDOM TOOTH EXTRACTION Immunization History: [...] with type 2 diabetes mellitus (CMS/HCC) ([facility]) Esophagitis Nausea and vomiting Hyperlipidemia Cellulitis and abscess of lower extremity Chronic acquired lymphedema Cellulitis Hyperandrogenism Uncontrolled type 2 diabetes mellitus with complication Chronic osteomyelitis (CMS/HCC) ([facility]) 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 ([facility]) Class 3 severe obesity due to excess calories with serious comorbidity and body mass index (BMI) of 50.0 to 59.9 in adult ([facility]) Type 2 diabetes mellitus with hyperglycemia, with long-term current use of insulin ([facility]) Hyperglycemia Post-menopausal bleeding Morbid obesity ([facility]) Left leg cellulitis Diabetic foot infection S/P AKA (above knee amputation) unilateral, right ([facility]) Class 3 severe obesity due to excess calories with serious comorbidity and body mass index (BMI) of 60.0 to 69.9 in adult ([facility]) Isolation/Infection: No active isolations No active infections [...] Total assistance Toileting Total assistance Feeding Independent Order Analyst Independent Med Delivery yes Wound Care Documentation [...] select all that are sent with patient): {[facility] Patient Belongings:[id number]} RN SIGNATURE: MANAGEMENT/SOCIAL WORK SECTION Inpatient Status Date: Readmission Risk Assessment Score: @READMISSIONRISKDETAILS@ Discharging to Facility/ Agency Name: [facility] Address:[address] [place] [address] Dialysis Facility (if applicable) Name: Address: Dialysis Schedule: Phone: Fax: Industrial Gas Production Operator/Body Piercer signature: ICIAN SECTION Prognosis: fair Condition at Discharge: stable Rehab Potential (if transferring to Rehab): fair Recommended Labs or Other Treatments After Discharge: Physician Certification: I certify the above information and transfer of Will Jacinto is necessary for the continuing treatment of the diagnosis listed and that he requires prison facility for greater than 30 days. Update Admission H&P: No change in H&P PHYSICIAN SIGNATURE: documented in this encounter [facility] 08-19-2023 Note Formatting of this n ote might be different from the original. Inpatient status from [facility] with abdominal pain. Admitted to [facility]. ID consulted as patient was in [...] iv x 1 throughout the night.Did task METAL WIRE COATING OPERATOR to send referral to [facility]. Discharge plan is to return to [facility] when medically stable... [facility] 08-19-2023 Note Formatting of this n ote might be different from the original. Inpatient status from [facility] with abdominal pain. Admitted to [facility]. ID consulted as patient was in [...] iv x 1 throughout the night.Did task METAL WIRE COATING OPERATOR to send referral to [facility]. Discharge plan is to return to [facility] when medically stable... [facility] 10-11-2023 Plan of care note Problem: Pain Goal: My pain/discomfort is manageable Outcome: Progressing met Ice therapy offer/repositioning Problem: Safety Goal: Patient will be injury free during hospitalization Outcome: Progressing met Educate on using call light/ frequent rounding [facility] 08-18-2023 Emergency department Note Endocrinology pagekristina, have tried to contact multiple times in regards to Insulin order w/o response. Flor Alonso RN 08/18/23 1214 [facility] 08-18-2023 Emergency department Note Endocrinology melodie, [...] otherwise acutely negative except as in the [place]. PAST MEDICAL HISTORY Past Medical History: Diagnosis [...] tissue disorders Other symbolic dysfunctions Schizophrenia ([facility]) Sleep apnea no CPAP Venous insufficiency SURGICAL HISTORY Past Surgical History: Procedure Laterality Date ABCESS DRAINAGE Right 09/09/2018 FOOT; ACH COLONOSCOPY 09/19/[address] Hyde DILATION AND CURETTAGE OF UTERUS 05/18/2019 HYSTEROSCOPY 12/23/2021 LEG AMPUTATION THROUGH KNEE Right 06/16/2019 UPPER GASTROINTESTINAL ENDOSCOPY N/A 06/29/2023 Dr Sergio Sibley at [facility]; no specimens WISDOM TOOTH EXTRACTION CURRENT MEDICATIONS [...] Physician EKG interpretation can be found in [facility] RADIOLOGY (Per Emergency Physician): Interpretation per the [...] Culture. Procedure Abnormality Status --------- ------ Complete Urinalysis[[id number]] Please view results for these tests on [...] medicine further management Brandon Leblanc DO 08/17/23 9466 Arrived via em[facility] ABD pain /10 x [...] time: Means of arrival: Comments: PHYSICIANS Lisa Curtsi RN 08/17/23 1215 Bed: 08 Expected date: Expected time: Means of arrival: Comments: Main 2 Dalila Mendes RN 08/17/232045 documented in this encounter [facility] 08-18-2023 Consult note Associated Order (s): IP CONSULT TO ENDOCRINOLOGY Department of Internal Medicine Division of Endocrinology, Diabetes, & Metabolism Endocrinology Note Patient Name: Will Jacinto : 1965 AGE: 57 y.o. Room/Bed: 06/15 Admission Date: 08/17/2023 Visit Date: 08/18/2023 Reason for Endocrine Consult: DM2 Uncontrolled Provider/Team Requesting Consult: Dr. Hill PCP: Jared Guzman Outpt Fur Storage Clerk: Yes [facility] endocrinology Last seen 02/09/2023, Next appointment 10/27/2023 ASSESSMENT: Type 2 diabetes mellitus with hyperglycemia with group home insulin use Leukocytosis Bipolar disorder Dm2 [...] [facility] endocrinology SUBJECTIVE/HPI: CHIEF COMPLAINT: Chief Complaint Patient [...] before lunch/285 units before dinner Lactobacillus Acid-Pectin (Acidophilus/Plymouth Pectin) tablet 1 tablet, Oral, 2 times [...] found for: CHOLHDLRATIO No results found for: [id number] Lab Results Component Value Date TSH 2.356 [...] 08/17/2023 Patient Name: WILL JACINTO : 1965 [facility]#: [id number] Exam Date/Time: 08/17/2023 15:08 Procedure: CT ABDOMEN [...] (HCC) Anxiety disorder Bipolar 1 disorder ([facility]) Blood circulation, collateral Cellulitis chronic L lower leg COVID 12/08/2021 Depression Diabetes mellitus ([facility]) Type II, on insulin Disease of blood and blood forming organ Endometrial carcinoma ([facility]) 11/25/2020 Endometrial hyperplasia Foot ulcer ([facility]) Hx of blood clots RLE prior to amputation Hyperlipidemia Hypertension Lymphedema 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 [facility] 08-18-2023 Consult note Associated Order (s): IP CONSULT TO ENDOCRINOLOGY Department of Internal Medicine Division of Endocrinology, Diabetes, & Metabolism Endocrinology Note Patient Name: Will Jacinto : 1965 AGE: 57 y.o. Room/Bed: 06/15 Admission Date: 08/17/2023 Visit Date: 08/18/2023 Reason for Endocrine Consult: DM2 Uncontrolled Provider/Team Requesting Consult: Dr. Hill PCP: Jared Guzman Outpt Fur Storage Clerk: Yes [facility] endocrinology Last seen 02/09/2023, Next appointment 10/27/2023 ASSESSMENT: Type 2 diabetes mellitus with hyperglycemia with group home insulin use Leukocytosis Bipolar disorder Dm2 [...] before lunch/285 units before dinner Lactobacillus Acid-Pectin (Acidophilus/Plymouth Pectin) tablet 1 tablet, Oral, 2 times [...] found for: CHOLHDLRATIO No results found for: [id number] Lab Results Component Value Date TSH 2.356 [...] (HCC) Anxiety disorder Bipolar 1 disorder ([facility]) Blood circulation, collateral Cellulitis chronic L lower leg COVID 12/08/2021 Depression Diabetes mellitus ([facility]) Type II, on insulin Disease of blood and blood forming organ Endometrial carcinoma ([facility]) 11/25/2020 Endometrial hyperplasia Foot ulcer ([facility]) Hx of blood clots RLE prior to amputation Hyperlipidemia Hypertension Lymphedema MDRO (multiple drug resistant organisms) resistance hx CRE and MRSA in 2018, RLE Morbidly obese ([facility]) Muscle weakness Osteomyelitis (HCC) Osteomyelitis ([facility]) 2019 RLE Other lack of coordination Other [...] ENDOSCOPY N/A 06/29/2023 Dr Sergio Sibley at [facility]; no specimens WISDOM TOOTH EXTRACTION Allergy(ies): No [...] the original note were not included. [facility] - Infectious Diseases Attending Consult Note Reason for Consult: Complicated UTI History of Present Illness: Patient is 57 year old admitted to [facility] with abdominal discomfort N/V. Patient was in [...] absence of other toe(s), unspecified side ([facility]) Anxiety disorder Bipolar 1 disorder ([facility]) Blood circulation, collateral Cellulitis chronic L lower leg COVID 12/08/2021 Depression Diabetes mellitus ([facility]) Type II, on insulin Disease of blood and blood forming organ Endometrial carcinoma ([facility]) 11/25/2020 Endometrial hyperplasia Foot ulcer ([facility]) Hx of blood clots RLE prior to amputation Hyperlipidemia Hypertension Lymphedema MDRO (multiple drug resistant organisms) resistance hx CRE and MRSA in 2018, RLE Morbidly obese ([facility]) Muscle weakness Osteomyelitis (HCC) Osteomyelitis ([facility]) 2019 RLE Other lack of coordination Other specified soft tissue disorders Other symbolic dysfunctions Schizophrenia ([facility]) Sleep apnea no CPAP Venous insufficiency Past Surgical History: Past Surgical History: Procedure Laterality Date ABCESS DRAINAGE Right 09/09/2018 FOOT; ACH COLONOSCOPY 09/19/[address] Hyde DILATION AND CURETTAGE OF UTERUS 05/18/2019 HYSTEROSCOPY 12/23/2021 LEG AMPUTATION THROUGH KNEE Right 06/16/2019 UPPER GASTROINTESTINAL ENDOSCOPY N/A 06/29/2023 Dr Sergio Sibley at [facility]; no specimens WISDOM TOOTH EXTRACTION Current Medications: [...] before lunch/285 units before dinner Lactobacillus Acid-Pectin (Acidophilus/Plymouth Pectin) tablet Take 1 tablet by mouth [...] MD, MACP, FIDSA documented in this encounter [facility] 08-18-2023 History and physical note Department [...] ENDOSCOPY N/A 06/29/2023 Dr Sergio Sibley at [facility]; no specimens WISDOM TOOTH EXTRACTION Medications Prior [...] diabetes mellitus with complication Chronic osteomyelitis (CMS/[facility]) ([facility]) 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 ([facility]) Class 3 severe obesity due to excess calories with serious comorbidity and body mass index (BMI) of 50.0 to 59.9 in adult ([facility]) Type 2 diabetes mellitus with hyperglycemia, with long-term current use of insulin ([facility]) Hyperglycemia Post-menopausal bleeding Morbid obesity ([facility]) Left leg cellulitis Diabetic foot infection S/P AKA (above knee amputation) unilateral, right ([facility]) Class 3 severe obesity due to excess calories with serious comorbidity and body mass index (BMI) of 60.0 to 69.9 in adult ([facility]) Chest pain Chest pain, unspecified type Upper abdominal pain Intertriginous homa Abd pain DM 2 HTN HPL Plan Obs admit Hopefully back to [facility] tomorrow NABIL HILL DO 08/18/23 10:00 AM [facility] 08-18-2023 History and physical note Department [...] knee amputation of right lower extremity ([facility]) Acquired absence of other toe(s), unspecified side [...] ENDOSCOPY N/A 06/29/2023 Dr Sergio Sibley at [facility]; no specimens WISDOM TOOTH EXTRACTION Medications Prior [...] 08/18/23 10:00 AM documented in this encounter [facility] 08-18-2023 Consult note Associated Order (s): IP CONSULT TO INFECTIOUS DISEASES Images from the original note were not included. [facility] - Infectious Diseases Attending Consult Note Reason for Consult: Complicated UTI History of Present Illness: Patient is 57 year old admitted to [facility] with abdominal discomfort N/V. Patient was in [...] ENDOSCOPY N/A 06/29/2023 Dr Sergio Sibley at [facility]; no specimens WISDOM TOOTH EXTRACTION Current Medications: [...] 12.5 g 12.5 g IntraVENous PRN Jaklyn [place], DO 12.5 g at 08/17/23 1809 dilTIAZem [...] before lunch/285 units before dinner Lactobacillus Acid-Pectin (Acidophilus/Plymouth Pectin) tablet Take 1 tablet by mouth [...] accounting for open encounter. Art Reddy MD, [facility] [place] [facility] 08-17-2023 Emergency department Note Bed: 27 Expected date: Expected time: Means of arrival: Comments: PHYSICIANS Lisa Curtis RN 08/17/23 1215 [facility] 08-17-2023 Emergency department Note Bed: 08 Expected date: Expected time: Means of arrival: Comments: Main 2 Dalila Mendes RN 08/17/232045 [facility] 08-17-2023 Emergency department Triage note Arrived [...] within reach, continue with plan of care [facility] 08-17-2023 Physician Emergency department Note EMERGENCY [...] otherwise acutely negative except as in the [place]. PAST MEDICAL HISTORY Past Medical History: Diagnosis [...] ENDOSCOPY N/A 06/29/2023 Dr Sergio Sibley at [facility]; no specimens WISDOM TOOTH EXTRACTION CURRENT MEDICATIONS [...] Culture. Procedure Abnormality Status --------- ------ Complete Urinalysis[[id number]] Please view results for these tests on [...] Medicine Provider Aaron Burgos DO 08/17/23 1528 [facility] 08-17-2023 Physician Emergency department Note Pt [...] further management Brandon Leblanc DO 08/17/23 2249 [facility] 08-12-2023 Telephone encounter Note Faxed over recommendation. Thank you! [facility] 08-12-2023 Miscellaneous Notes Faxed over recommendation. Thank you! Please keep doses the same thank you Images from the original note were not included. Patient BGL documented in this encounter [facility] 08-12-2023 Telephone encounter Note Please keep doses the same thank you [employer] Work Phone: 08-11-2023 Telephone encounter Note Images from the original note were not included. Patient BGL [facility] 08-09-2023 Telephone encounter Note Pt rescheduled appt with herber Ramos to 08/13/23; respiratory consult for lung nodule was placed on 08/07/[address] AP confirmed 7mm lung nodule. Navigator will continue to follow and assist with follow up as needed after appt 08/13. [facility] 08-09-2023 Miscellaneous Notes Pt rescheduled appt with [...] report and contact info for navigator to Jraed Guzman office. Received call from someone at [phone] stating they got a call to this [...] finding.Await comparison report. documented in this encounter [facility] 08-08-2023 Emergency department Note Physicians A.S.arrived and report given. Patient returned to SNF. SNF was informed. Karlos Garcia RN 08/08/23 1448 Karlos Garcia RN 08/08/23 1449 [facility] 08-08-2023 Emergency department Note Physicians A.[facility].arrived and report given. Patient returned to SNF. SNF was informed. Karlos Garcia RN 08/08/23 1448 Karlos Garcia RN 08/08/23 1449 Karlos Garcia RN 08/08/23 1123 Karlos Garcia RN 08/08/23 1123 Bed: 17 Expected date: Expected time: Means of arrival: Comments: Nalini Mendes RN 08/08/23 0632 documented in this encounter [facility] 08-08-2023 Emergency department Note Karlos Garcia RN 08/08/231122 Karlos Garcia RN 08/08/231122 [facility] 08-08-2023 Emergency department Note Bed: 17 Expected date: Expected time: Means of arrival: Comments: Nalini Mendes RN 08/08/23 0632 [facility] 07-23-2023 Telephone encounter Note Pt to see Herber Ramos in [facility] 07/30/23 [facility] 07-23-2023 Miscellaneous Notes Pt to see Herber Ramos in [facility] 07/30/[address] Guzman office, pt does not have any scheduled fu. Provided new phone number for patient. Added to chart. Faxed report and contact info for navigator to Jared Guzman office. Received call from someone at [phone] stating they got a call to this [...] finding.Await comparison report. documented in this encounter [facility] 07-20-2023 Telephone encounter Note Contacted Dr. Guzman office, pt does not have any scheduled fu. Provided new phone number for patient. Added to chart. [facility] 07-20-2023 Telephone encounter Note Faxed report and contact info for navigator to Jared Guzman office. [facility] 07-20-2023 Telephone encounter Note Received call from someone at [phone] stating they got a call to this number and this is a work phone. Patient and person identified via phone do not match. Will not attempt phone number again. EC contact attempted but no answer. [facility] 07-15-2023 Telephone encounter Note Lm requesting a return phone call to discuss finding [facility] 07-05-2023 Telephone encounter Note Patient appeared on ED Nuance search after CTA chest 06-28-2023 noted a 7 mm right middle lobe lung nodule. Imaging was completed for chest pain and history of DVT. Outside facility imaging on 11-22-2020 noted a right middle lobe 3 mm nodule. Requested outside facility imaging for comparison to determine whether this is an enlarging finding.Await comparison report. [facility] 07-01-2023 Note Formatting of this n ote might be different from the original. Return to [facility] this afternoon at 1:00. [facility] messaged the facility with the dc time. [facility] ambulance to transport. Ambulance transport form completed. [facility] 07-01-2023 Note Formatting of this n ote might be different from the original. Return to [facility] this afternoon at 1:00. [facility] messaged the facility with the dc time. [facility] ambulance to transport. Ambulance transport form completed. [facility] 07-01-2023 Miscellaneous Notes Return to [facility] this afternoon at 1:00. [facility] messaged the facility with the dc time. [facility] ambulance to transport. Ambulance transport form completed. Discharge med list transmitted to [facility] via [facility] per [facility] request. Patient Choice Patient Name: WILL JACINTO Date of : 1965 All Providers Sent Referral Name: [facility] Phone: [phone] Address: [address] [place] [address] Images from the original note were not included. Care Management Progress Note Pt has discharge order placed. Tasked METAL WIRE COATING OPERATOR to send discharge paperwork to [facility]. Notified HOOP RIVETING MACHINE OPERATOR to arrange transportation. Facility notified pt to [...] ACS. Endocrine following. Pt to return to [facility] at discharge. Discharge Milestones and Delays Expected [...] for EGD today. Wheelchair bound. DC plan: [facility], bed hold. No authorization needed. Discharge Milestones [...] obtained: None Medications administered: 200mg Propofol per DEAF/HARD OF HEARING SPECIALIST Additional Info: Adult diet regular; 3 carb choices (45gm/meal); see Dr Sibley' orders For additional Questions please call Endoscopy at [phone]. Thank You! Dr [facility] Will Jacinto Procedure Date: 06/29/2023 8:19 AM Gender: Female Date of : 1965 Age: 57 Admit Type: Inpatient Note Status: Finalized Endoscopist: Sergio Sibley DO, [id number] Procedure: Upper GI endoscopy Indications: Chest pain [...] immediate complications. Procedure Code(s): --- Professional --- 64732, Esophagogastroduodenoscopy, flexible, transoral; diagnostic, including collection of specimen(s) by brushing or washing, when performed (separate procedure) --- Technical --- 15069, Esophagogastroduodenoscopy, flexible, transoral; diagnostic, including collection of specimen(s) by brushing or washing, when performed (separate procedure) Diagnosis Code(s): --- Professional --- R07.89, Other chest pain R11.2, Nausea with vomiting, unspecified --- Technical --- R07.89, Other chest pain R11.2, Nausea with vomiting, unspecified CPT copyright 2021 [employer]. All rights reserved. The codes documented in this report are preliminary and upon bacteriologist fishery review may be revised to meet current [...] Limits Permission given to speak with patient rental sales representative/caregiver as indicated: Yes (Jovana Quesada ([facility]) [phone]) Confirmation of Payer with patient/family: Yes Payer Name: [facility] Dual [place]: No Confirmation of Primary Care Physician: Confirmed PCP Name: Jared Guzman Seen in last 2 years?: Yes Primary Caregiver: Other (Comment) ([facility] staff) If assistance needed, confirmed caregiver ready, willing and able to care for patient at discharge: Yes Confirmed with: Patient states staff from [facility] Living Arrangements Current Residence: ([facility]) Number of Floors Number of Entry Steps: Bed/Bath Levels: Facility: [facility] Facility Name: [facility] Plan to Return: Yes Lives with: Support Systems: Family members Activities of Daily Living Ambulation: Total Care (wheelchair) Bathing/Dressing: Total Care Elimination/Continence/Toileting : Assistance Feeding: Independent Who Assists with Activities of Daily Living: Staff from [facility] Instrumental Activities of Daily Living Prescription Coverage: Yes Pharmacy Used: Pharmacy through [facility] Medication Management: Assistance Type: Dose packaging system Who assists with medication securing and setup?: [facility] staff Transportation/Shopping: Assistance Provider Transportation Mode: Needs Assistance with Transportation at Discharge: No Meal Preparation: Assistance Provider Meal Prep Assistance Provider Name: [facility] staff Laundry/Cleaning: Assistance Provider Laundry/Cleaning Assistance Provider Name: [facility] staff Finances/Bill Paying: Assistance Provider Finances/Bill Payer Assistance Provider Name: Family Communication: Independent Types of Care Services/Equipment Utilized Care Services: Dialysis Type: NA Durable Medical Equipment: Wheelchair (standard or power) Patient's Goal/Discharge Plan Patient expects to be discharged to: Back to [facility]. Discharge Planning Actions: Continue to [...] R bka, is wheelchair bound. Lives at [facility] and plans to return. Cardiology consulted. Task sent to [facility] via [facility] to place return referral to [facility]. [facility] will continue to follow. Herber Armando RN Patient was referred to the [facility] service for admission but his primary care physician is covered by Dr. Hill. Dr. Hill will see and admit. Attending changed to Dr. Hill. documented in this encounter [facility] 07-01-2023 Note Formatting of this n ote might be different from the original. Discharge med list transmitted to [facility] via [facility] per [facility] request. [facility] 07-01-2023 Note Formatting of this n ote might be different from the original. Discharge med list transmitted to [facility] via [facility] per [facility] request. [facility] 07-01-2023 Hospital course Narrative Discharge Summary [...] MEDICATIONS: Medication List CONTINUE taking these medications Acidophilus/Plymouth Pectin tablet ARIPiprazole 10 MG tablet Commonly [...] Complexity: follow up within 7-14 calendar days (36194) [] Severe Complexity: follow up within 7 calendar days (20483) FOLLOW UP TESTING, PENDING RESULTS OR REFERRALS AT TRANSITIONAL CARE VISIT: [] Yes [] No PENDING STUDIES: none DISPOSITION: Skilled Facility FACILITY/HOME CARE AGENCY NAME: [facility] Follow up with Sergio Sibley DO [address] [facility] [phone] Follow up As needed INSTRUCTIONS TO MA/SW: [...] 07/01/2023, 8:48 AM documented in this encounter [facility] 07-01-2023 Note Formatting of this n ote might be different from the original. Patient Choice Patient Name: WILL JACINTO Date of : 1965 All Providers Sent Referral Name: [facility] Phone: [phone] Address: [address] [place] [id number] [facility] 07-01-2023 Note Formatting of this n ote might be different from the original. Patient Choice Patient Name: WILL JACINTO Date of : 1965 All Providers Sent Referral Name: [facility] Phone: [phone] Address: [address] [place] [id number] [facility] 07-01-2023 Note Formatting of this n ote is different from the original. Images from the original note were not included. Care Management Progress Note Pt has discharge order placed. Tasked METAL WIRE COATING OPERATOR to send discharge paperwork to [facility]. Notified HOOP RIVETING MACHINE OPERATOR to arrange transportation. Facility notified pt to [...] Length of Stay (Days): 3 GMLOS: 1.7 [facility] 07-01-2023 Note Formatting of this n ote is different from the original. Images from the original note were not included. Care Management Progress Note Pt has discharge order placed. Tasked METAL WIRE COATING OPERATOR to send discharge paperwork to [facility]. Notified HOOP RIVETING MACHINE OPERATOR to arrange transportation. Facility notified pt to [...] Length of Stay (Days): 3 GMLOS: 1.7 [facility] 06-30-2023 Hospital Discharg e instructions David Lui RN - 06/30/2023 7:25 PM EDT Continuity of Care Form Patient Name: Will Jacinto : 1965 Admit date: 06/28/2023 Discharge date: 07/01/23 Code Status Order: Full Code Advance Directives: N Admitting Physician: Nabil Hill DO PCP: Jared Guzman Discharging Nurse: Janina Discharging Hospital Unit/Room#: B2-257/B2-257 A Discharging Unit Phone Number: [phone] Emergency Contact: Extended Emergency Contact Information Primary [...] ENDOSCOPY N/A 06/29/2023 Dr Sergio Sibley at [facility]; no specimens WISDOM TOOTH EXTRACTION Immunization History: Immunization History Administered Date(s) Administered Covid-19, Pfizer Cazares Top, Do Not Dilute, (Age 12 Y+), Im, L 02/26/2022 Influenza, injectable, quadrivalent, preservative free 01/14/2019, 08/12/2021 Pfizer SARS-CoV-2 Vaccination 11/13/2020, 12/04/2020, 08/28/2021 Active Problems: Medical Problems Problem List * (Principal) Chest pain Hypertension Chest pain, unspecified type Endometrial carcinoma (HCC) Endometrial hyperplasia Diabetic hyperosmolar non-ketotic state ([facility]/HCC) ([facility]) Thickened endometrium Ileus ([facility]/HCC) ([facility]) Complex endometrial hyperplasia with atypia Diabetic gastroparesis associated with type 2 diabetes mellitus ([facility]) ([facility]) Esophagitis Nausea and vomiting Hyperlipidemia Cellulitis and abscess of lower extremity Chronic acquired lymphedema Cellulitis Hyperandrogenism Uncontrolled type 2 diabetes mellitus with complication Chronic osteomyelitis ([facility]) ([facility]) 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 ([facility]) Class 3 severe obesity due to excess calories with serious comorbidity and body mass index (BMI) of 50.0 to 59.9 in adult ([facility]) Type 2 diabetes mellitus with hyperglycemia, with long-term current use of insulin ([facility]) ([facility]) Hyperglycemia Post-menopausal bleeding Morbid obesity ([facility]) Left leg cellulitis Diabetic foot infection ([facility]) S/P AKA (above knee amputation) unilateral, right ([facility]) Class 3 severe obesity due to excess calories with serious comorbidity and body mass index (BMI) of 60.0 to 69.9 in adult ([facility]) Isolation/Infection: Contact CRE Nurse Assessment: Last Vital [...] Total assistance Toileting Total assistance Feeding Independent Order Analyst Independent Med Delivery yes Wound Care Documentation [...] Score: @READMISSIONRISKDETAILS@ Discharging to Facility/ Agency Name: [facility] Address: [address] [place] [address] Fax: Dialysis Facility (if applicable) Name: Address: Dialysis Schedule: Phone: Fax: Industrial Gas Production Operator/Body Piercer signature: ICIAN SECTION Prognosis: fair Condition at Discharge: stable Rehab Potential (if transferring to Rehab): fair Recommended Labs or Other Treatments After Discharge: none Physician Certification: I certify the above information and transfer of Will Jacinto is necessary for the continuing treatment of the diagnosis listed and that he requires prison facility for greater than 30 days. Update Admission H&P: No change in H&P PHYSICIAN SIGNATURE: documented in this encounter [facility] 06-30-2023 Note Formatting of this n ote is different from the original. Images from the original note were not included. Care Management Progress Note Pt remains on 2E due to chest pain. S/P EGD 06/29-GI following.Cardiology- no evidence of ACS. Endocrine following. Pt to return to [facility] at discharge. Discharge Milestones and Delays Expected [...] Length of Stay (Days): 2 GMLOS: 1.7 [facility] 06-30-2023 Note Formatting of this n ote is different from the original. Images from the original note were not included. Care Management Progress Note Pt remains on 2E due to chest pain. S/P EGD 06/29-GI following.Cardiology- no evidence of ACS. Endocrine following. Pt to return to [facility] at discharge. Discharge Milestones and Delays Expected [...] Length of Stay (Days): 2 GMLOS: 1.7 [facility] 06-30-2023 History of Presen t illness Narrative [...] Jacinto : 1965 AGE: 57 y.o. Room/Bed: [facility] A Admission Date: 06/28/2023 Visit Date: 06/30/2023 Reason for Endocrine Consult: dm2 Provider/Team Requesting Consult: Dr. Hill PCP: Jared Guzman Outpt Fur Storage Clerk: Dr. Lee [facility] endo ASSESSMENT: DM 2 poor control Cheat [...] doses to be determined Outpt Follow Up-- [facility] ryder Lee SUBJECTIVE/HPI: CHIEF COMPLAINT: Chief Complaint [...] before lunch/285 units before dinner Lactobacillus Acid-Pectin (Acidophilus/Plymouth Pectin) tablet 1 tablet, Oral, 2 times [...] found for: CHOLHDLRATIO No results found for: [id number] Lab Results Component Value Date TSH 2.356 11/26/2020 Radiology reportsas per the Radiologist Radiology: ECG 12 lead Result Date: 06/28/2023 Sinus tachycardia Nonspecific IVCD with LAD Left ventricular hypertrophy Minimal ST elevation, anterolateral leads Electronically Signed On 06-28-2023 5:20:13 EDT by Rosaura Mustafa CT chest angiogram w and/or wo IV contrast Result Date: 06/28/2023 [facility] 1965 [id number] Exam Date/Time: 06/28/2023 03:49 Procedure: CT CHEST [...] 06/28/2023 Patient Name: [facility] 1965 [id number] Exam Date/Time: 06/28/2023 03:08 Procedure: XR CHEST [...] ENDOSCOPY N/A 06/29/2023 Dr Sergio Sibley at [facility]; no specimens WISDOM TOOTH EXTRACTION Allergy(ies): No [...] Jacinto : 1965 AGE: 57 y.o. Room/Bed: [facility]/[address] Admission Date: 06/28/2023 Visit Date: 06/29/2023 Reason for Endocrine Consult: dm2 Provider/Team Requesting Consult: Dr. Hill PCP: Jared Guzman Outpt Fur Storage Clerk: Dr. Jesus spear endo ASSESSMENT: DM 2 [...] before lunch/285 units before dinner Lactobacillus Acid-Pectin (Acidophilus/Plymouth Pectin) tablet 1 tablet, Oral, 2 times [...] found for: CHOLHDLRATIO No results found for: [id number] Lab Results Component Value Date TSH 2.356 [...] 06/28/2023 Patient Name: WILL JACINTO : 1965 [facility]#: [id number] Exam Date/Time: 06/28/2023 03:08 Procedure: XR CHEST [...] (HCC) Anxiety disorder Bipolar 1 disorder ([facility]) Blood circulation, collateral Cellulitis chronic L lower leg COVID 12/08/2021 Depression Diabetes mellitus ([facility]) Type II, on insulin Disease of blood and blood forming organ Endometrial carcinoma (HCC) 11/25/2020 Endometrial hyperplasia Foot ulcer ([facility]) Hx of blood clots RLE prior to amputation Hyperlipidemia Hypertension Lymphedema 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, RLE Morbidly obese (HCC) Muscle weakness Osteomyelitis (HCC) Osteomyelitis (HCC) 2019 RLE Other lack of coordination Other specified soft tissue disorders Other symbolic dysfunctions Schizophrenia ([facility]) Sleep apnea no CPAP Venous insufficiency Past Surgical History: Past Surgical History: Procedure Laterality Date ABCESS DRAINAGE Right 09/09/2018 FOOT; ACH COLONOSCOPY 09/19/[address] Hyde DILATION AND CURETTAGE OF UTERUS 05/18/2019 HYSTEROSCOPY 12/23/2021 LEG AMPUTATION THROUGH KNEE Right 06/16/2019 UPPER GASTROINTESTINAL ENDOSCOPY N/A 06/29/2023 Dr Sergio Sibley at [facility]; no specimens WISDOM TOOTH EXTRACTION Allergy(ies): No [...] 06/29/23 9:10 AM documented in this encounter [facility] 06-30-2023 Note Sinus rhythm Abnormal R-wave [...] include implement nonpharmacological interventions to manage anxiety. [facility] 06-29-2023 Note Formatting of this n ote is different from the original. Images from the original note were not included. Care Management Progress Note Chart reviewed. Patient remains on with chest pain. HX transgender F-M, Schizophrenia, Bipolar. R BKA, is wheelchair bound. Cardiology and GI following. Plan for EGD today. Wheelchair bound. DC plan: [facility], bed hold. No authorization needed. Discharge Milestones [...] Length of Stay (Days): 1 GMLOS: 1.7 [facility] 06-29-2023 Note Formatting of this n ote is different from the original. Images from the original note were not included. Care Management Progress Note Chart reviewed. Patient remains on with chest pain. HX transgender F-M, Schizophrenia, Bipolar. R BKA, is wheelchair bound. Cardiology and GI following. Plan for EGD today. Wheelchair bound. DC plan: [facility], bed hold. No authorization needed. Discharge Milestones [...] Length of Stay (Days): 1 GMLOS: 1.7 [facility] 06-29-2023 Procedure anesthe ben Narrative Procedure Name [...] Melissa Sosa RN documented in this encounter [id number] Note* Perioperative Nursing Note - Usman Ulrich RN - 06/29/2023 10:54 AM EDT Report called to [facility] [place] [id number] Note* Perioperative Nursing Note - Usman Ulrich RN - 06/29/2023 10:54 AM EDT Report called to Herber [place] [id number] Note* Perioperative Nursing Note - Usman Ulrich RN - 06/29/2023 10:40 AM EDT POST ENDOSCOPY PROCEDURE TRANSFER REPORT Procedure completed: EGD Findings: WDL Specimens obtained: None Medications administered: 200mg Propofol per DEAF/HARD OF HEARING SPECIALIST Additional Info: Adult diet regular; 3 carb choices (45gm/meal); see Dr Sibley' orders For additional Questions please call Endoscopy at [phone]. Thank You! [id number] Note* Perioperative Nursing Note - Usman Ulrich RN - 06/29/2023 10:40 AM EDT POST ENDOSCOPY PROCEDURE TRANSFER REPORT Procedure completed: EGD Findings: WDL Specimens obtained: None Medications administered: 200mg Propofol per DEAF/HARD OF HEARING SPECIALIST Additional Info: Adult diet regular; 3 carb choices (45gm/meal); see Dr Sibley' orders For additional Questions please call Endoscopy at [phone]. Thank You! [place] [id number] Note* Perioperative Nursing Note - Usman Urlich RN - 06/29/2023 10:[address] Sibley in room talking to patient [id number] Note* Perioperative Nursing Note - Usman Ulrich RN - 06/29/2023 10:[address] Sibley in room talking to patient [place] [id number] Note* Addendum Note - JEREMY Naranjo CRNA - 06/29/2023 10:21 AM EDT Addendum created 06/29/23 1021 by JEREMY Naranjo CRNA Attestation recorded in Intraprocedure, Intraprocedure Attestations filed [place] [id number] Miscellaneous Notes* Addendum Note - JEREMY Naranjo CRNA - 06/29/2023 10:21 AM EDT Addendum created 06/29/23 1021 by JEREMY Naranjo CRNA Attestation recorded in Intraprocedure, Intraprocedure Attestations filed * Anesthesia Discharge Note - JEREMY Naranjo CRNA - 06/29/2023 10:20 AM EDT Patient: Maria Luisa Jacinto Procedure Summary Date: 06/29/23 Room / Location: [place] [address] / [facility] Gastroenterology Anesthesia Start: 953 Anesthesia Stop: 1018 [...] criteria has been met. documented in [facility] [id number] Note* Anesthesia Discharge Note - JEREMY Naranjo CRNA - 06/29/2023 10:20 AM EDT Patient: Maria Luisa Jacinto Procedure Summary Date: 06/29/23 Room / Location: [place] [address] / [facility] Gastroenterology Anesthesia Start: 953 Anesthesia Stop: 1018 [...] once all PACU criteria has been met. [facility] [id number] Anesthesiology Postoperative evaluation and management note* Anesthesia Postprocedure Evaluation - JEREMY Naranjo CRNA - 06/29/2023 10:20 AM EDT Patient: Maria Luisa Jacinto Procedure Summary Date: 06/29/23 Room / Location: [place] [address] / [facility] Gastroenterology Anesthesia Start: 953 Anesthesia Stop: 1019 [...] opportunity for questions and acknowledgement of understanding. [facility]08-22-2023 Surgical operation note* Anesthesia Postprocedure Evaluation - JEREMY Naranjo CRNA - 06/29/2023 10:20 AM EDT Patient: Maria Luisa Jacinto Procedure Summary Date: 06/29/23 Room / Location: [address] Gastroenterology Anesthesia Start: 953 Anesthesia Stop: [...] Date/Time: 06/29/23 0900 Procedure: EGD DIAGNOSTIC Location: [place] [address] / [facility] Gastroenterology Providers: Sergio Sibley DO Relevant Problems Cardio (+) Hyperlipidemia (+) Hypertension (+) 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 ([facility]) Endo (+) Type 2 diabetes mellitus with hyperglycemia, with long-term current use of insulin ([facility]) ([facility]) (+) Uncontrolled type 2 diabetes mellitus with complication Other (+) Chronic osteomyelitis ([facility]) ([facility]) (+) Endometrial carcinoma ([facility]) Past Medical History: Past Medical History: No date: Abnormal uterine bleeding (AUB) Comment: SCHEDULED FOR THE SURGERY ON 05/16/2019 No date: Above knee amputation of right lower extremity ([facility]) No date: Acquired absence of other toe(s), unspecified side ([facility]) No date: Anxiety disorder No date: Bipolar 1 disorder ([facility]) No date: Blood circulation, collateral No date: Cellulitis Comment: chronic L lower leg 12/08/2021: COVID No date: Depression No date: Diabetes mellitus ([facility]) Comment: Type II, on insulin No date: Disease of blood and blood forming organ 11/25/2020: Endometrial carcinoma ([facility]) No date: Endometrial hyperplasia No date: Foot ulcer ([facility]) No date: Hx of blood clots Comment: RLE prior to amputation No date: Hyperlipidemia No date: Hypertension No date: Lymphedema No date: 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, RLE No date: Morbidly obese ([facility]) No date: Muscle weakness No date: Osteomyelitis ([facility]) 2019: Osteomyelitis ([facility]) Comment: RLE No date: Other lack of coordination No date: Other specified soft tissue disorders No date: Other symbolic dysfunctions No date: Schizophrenia ([facility]) No date: Sleep apnea Comment: no CPAP [...] deviation no longer present documented in this [facility]08-22-2023 Nurse Note* Usman Ulrich RN - 06/29/2023 10:18 AM EDT No specimens [id number]* Usman Ulrich RN - 06/29/2023 10:18 AM EDT No specimens documented in this [facility]08-22-2023 Anesthesiology Preoperative evaluation and management note* Anesthesia Preprocedure Evaluation - Ezio Lr APRN - DEAF/HARD OF HEARING SPECIALIST - 06/29/2023 9:41 AM EDT Patient: Maria Luisa Jacinto Procedure Information Date/Time: 06/29/23 0900 Procedure: EGD DIAGNOSTIC Location: [place] [address] / [facility] Gastroenterology Providers: Sergio Sibley, DO Relevant Problems Cardio (+) Hyperlipidemia (+) Hypertension (+) 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 (HCC) Endo (+) Type 2 diabetes mellitus with hyperglycemia, with long-term current use of insulin (CMS/HCC) ([facility]) (+) Uncontrolled type 2 diabetes mellitus with complication Other (+) Chronic osteomyelitis ([facility]/HCC) ([facility]) (+) Endometrial carcinoma ([facility]) Past Medical History: Past Medical History: No date: Abnormal uterine bleeding (AUB) Comment: SCHEDULED FOR THE SURGERY ON 05/16/2019 No date: Above knee amputation of right lower extremity ([facility]) No date: Acquired absence of other toe(s), unspecified side ([facility]) No date: Anxiety disorder No date: Bipolar 1 disorder ([facility]) No date: Blood circulation, collateral No date: Cellulitis Comment: chronic L lower leg 12/08/2021: COVID No date: Depression No date: Diabetes mellitus ([facility]) Comment: Type II, on insulin No date: Disease of blood and blood forming organ 11/25/2020: Endometrial carcinoma ([facility]) No date: Endometrial hyperplasia No date: Foot ulcer ([facility]) No date: Hx of blood clots Comment: RLE prior to amputation No date: Hyperlipidemia No date: Hypertension No date: Lymphedema No date: 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, RLE No date: Morbidly obese ([facility]) No date: Muscle weakness No date: Osteomyelitis ([facility]) 2019: Osteomyelitis ([facility]) Comment: RLE No date: Other lack of coordination No date: Other specified soft tissue disorders No date: Other symbolic dysfunctions No date: Schizophrenia ([facility]) No date: Sleep apnea Comment: no CPAP [...] ST (T wave) deviation no longer present [id number] Note* Op Note - Sergio Sibley DO - 06/29/2023 8:19 AM EDT [facility] Name: Will Jacinto Procedure Date: 06/29/2023 8:19 AM Gender: Female Date of : 1965 Age: 57 Admit Type: Inpatient Note Status: Finalized Endoscopist: Sergio Sibley DO, [id number] Procedure: Upper GI endoscopy Indications: Chest pain [...] immediate complications. Procedure Code(s): --- Professional --- 77038, Esophagogastroduodenoscopy, flexible, transoral; diagnostic, including collection of specimen(s) by brushing or washing, when performed (separate procedure) --- Technical --- 28892, Esophagogastroduodenoscopy, flexible, transoral; diagnostic, including collection of specimen(s) by brushing or washing, when performed (separate procedure) Diagnosis Code(s): --- Professional --- R07.89, Other chest pain R11.2, Nausea with vomiting, unspecified --- Technical --- R07.89, Other chest pain R11.2, Nausea with vomiting, unspecified CPT copyright 2021 [employer]. All rights reserved. The codes documented in this report are preliminary and upon bacteriologist fishery review may be revised to meet current compliance requirements. Attending Participation: I personally performed the entire procedure. Sergio Sibley DO 06/29/2023 10:29:14 AM This report has been signed electronically. Number of Addenda: 0 Note Initiated On: 06/29/2023 8:19 AM T [id number] Note* Op Note - Sergio Sibley DO - 06/29/2023 8:19 AM EDT [facility] Patient Name: Will Jacinto Procedure Date: 06/29/2023 8:19 AM Gender: Female Date of : 1965 Age: 57 Admit Type: Inpatient Note Status: Finalized Endoscopist: Sergio Sibley DO, [id number] Procedure: Upper GI endoscopy Indications: Chest pain [...] immediate complications. Procedure Code(s): --- Professional --- 21590, Esophagogastroduodenoscopy, flexible, transoral; diagnostic, including collection of specimen(s) by brushing or washing, when performed (separate procedure) --- Technical --- 23614, Esophagogastroduodenoscopy, flexible, transoral; diagnostic, including collection of specimen(s) by brushing or washing, when performed (separate procedure) Diagnosis Code(s): --- Professional --- R07.89, Other chest pain R11.2, Nausea with vomiting, unspecified --- Technical --- R07.89, Other chest pain R11.2, Nausea with vomiting, unspecified CPT copyright 2021 [employer]. All rights reserved. The codes documented in this report are preliminary and upon bacteriologist fishery review may be revised to meet current compliance requirements. Attending Participation: I personally performed the entire procedure. Sergio Sibley DO 06/29/2023 10:29:14 AM This report has been signed electronically. Number of Addenda: 0 Note Initiated On: 06/29/2023 8:19 AM [facility] [id number] Consult note* Sergio Sibley DO - 06/28/2023 [...] (HCC) Anxiety disorder Bipolar 1 disorder ([facility]) Blood circulation, collateral Cellulitis chronic L lower leg COVID 12/08/2021 Depression Diabetes mellitus ([facility]) Type II, on insulin Disease of blood [...] before lunch/285 units before dinner Lactobacillus Acid-Pectin (Acidophilus/Plymouth Pectin) tablet 1 tablet, Oral, 2 times [...] by Sergio Sibley DO 06/28/2023 11:59 AM [employer] Phone: 1(461) 665-231908-21-2023 Consult note* Sergio Sibley DO - 06/28/2023 [...] leg COVID 12/08/2021 Depression Diabetes mellitus ([facility]) Type II, on insulin Disease of blood [...] before lunch/285 units before dinner Lactobacillus Acid-Pectin (Acidophilus/P[place]mouth Pectin) tablet 1 tablet, Oral, 2 times [...] AGE: 57 y.o. Room/Bed: [facility] B Admission Date: 06/28/2023 Visit Date: 06/28/2023 Reason for Endocrine Consult: dm2 Provider/Team Requesting Consult: Dr. Hill PCP: Jared Guzman Outpt [employer] Clerk: Dr. Jesus spear endo ASSESSMENT: DM 2 [...] 10%-15% lower than serum/plasma values. (CLIA ID [id number]) 12/23/2021 07:28 AM 107 (H) 70 - 100 mg/dL Final Comment: Test performed by glucose meter. Results may be 10%-15% lower than serum/plasma values. (CLIA ID [id number]) 11/28/2020 04:54 PM 111 (H) 70 - 100 mg/dL Final Comment: Test performed by glucose meter. Results may be 10%-15% lower than serum/plasma values. (CLIA ID [id number]) 11/28/2020 10:18 AM 166 (H) 70 - 100 mg/dL Final Comment: Test performed by glucose meter. Results may be 10%-15% lower than serum/plasma values. (CLIA ID [id number]) 11/28/2020 07:57 AM 215 (H) 70 - 100 mg/dL Final Comment: Test performed by glucose meter. Results may be 10%-15% lower than serum/plasma values. (CLIA ID [id number]) 11/27/2020 09:08 PM 91 70 - 100 mg/dL Final Comment: Test performed by glucose meter. Results may be 10%-15% lower than serum/plasma values. (CLIA ID [id number]) Review of Systems Constitutional: Positive for appetite [...] before lunch/285 units before dinner Lactobacillus Acid-Pectin (Acidophilus/P[place]mouth Pectin) tablet 1 tablet, Oral, 2 times [...] found for: CHOLHDLRATIO No results found for: [id number] Lab Results Component Value Date TSH 2.356 11/26/2020 Radiology reportsas per the Radiologist Radiology: ECG 12 lead Result Date: 06/28/2023 Sinus tachycardia Nonspecific IVCD with LAD Left ventricular hypertrophy Minimal ST elevation, anterolateral leads Electronically Signed On 06-28-2023 5:20:13 [address]T [address] Rosaura Must[address] CT chest angiogram w and/or wo IV contrast Result Date: 06/28/2023 [facility] 1965 [id number] Exam Date/Time: 06/28/2023 03:49 Procedure: CT CHEST [...] 06/28/2023 Patient Name: WILL JACINTO : 1965 [facility]#: [id number] Exam Date/Time: 06/28/2023 03:08 Procedure: XR CHEST [...] AM EDTAssociated Order(s): IP CONSULT TO CARDIOLOGY [facility] CARDIOLOGY CONS[facility] Patient Name: Will Jacinto [...] Above knee amputation of right lowerextremity ([facility]), Acquired absence of other toe(s), unspecified side ([facility]), Anxiety disorder, Bipolar 1 disorder ([facility]), Blood circulation, collateral, Cellulitis, COVID (12/08/2021), Depression, Diabetes mellitus ([facility]), Disease of blood and blood forming organ, Endometrial carcinoma ([facility]) (11/25/2020), Endometrial hyperplasia, Foot ulcer ([facility]), blood clots, Hyperlipidemia, Hypertension, Lymphedema,MDRO (multiple drug resistant organisms) resistance, Morbidly obese ([facility]), Muscle weakness, Osteomyelitis ([facility]), Osteomyelitis ([facility]) (2018), Other lack of coordination, Other specified soft tissue disorders, Other symbolic dysfunctions, Schizophrenia ([facility]), Sleep apnea, and Venous insufficiency. He has no past medical history of Arthritis, Asthma, CAD (coronary artery disease), Cerebral arteryocclusion with cerebral infarction ([facility]), CHF (congestive heart failure) ([facility]) ([facility]), Chronic kidney disease, COPD (chronic obstructive pulmonary disease) ([facility]), GERD (gastroesophageal reflux disease), Hemodialysis patient ([facility]) ([facility]), History of blood transfusion, Liver disease, Movement disorder, Neuromuscular disorder ([facility]), Other disorders of kidney and ureter in diseases classified elsewhere, Pneumonia, Seizures ([facility]), or Thyroid disease. SurgicalHistory: has a past surgical history that includes [place] tooth extraction; Dilation and curettage of uterus(05/18/2019); [...] units before dinner Historical Provider, Lactobacillus Acid-Pectin (Acidophilus/P[place]mouth Pectin) tablet Take 1 tablet by mouth [...] acute infiltrate or effusion. documented in this [facility]08-21-2023 Consult note* Geronimo Lee MD - 06/28/2023 10:45 AM EDTAssociated Order(s): IP CONSULT TO ENDOCRINOLOGY Department of Internal Medicine Division of Endocrinology, Diabetes, & Metabolism Endocrinology Note Patient Name: Will Jacinto : 1965 AGE: 57 y.o. Room/Bed: [facility] B Admission Date: 06/28/2023 Visit Date: 06/28/2023 Reason for Endocrine Consult: dm2 Provider/Team Requesting Consult: Dr. Hill PCP: Jared Guzman Outpt [employer] Clerk: Dr. Lee [facility] endo ASSESSMENT: DM 2 poor control Cheat [...] 10%-15% lower than serum/plasma values. (CLIA ID [id number]) 12/23/2021 07:28 AM 107 (H) 70 - 100 mg/dL Final Comment: Test performed by glucose meter. Results may be 10%-15% lower than serum/plasma values. (CLIA ID [id number]) 11/28/2020 04:54 PM 111 (H) 70 - 100 mg/dL Final Comment: Test performed by glucose meter. Results may be 10%-15% lower than serum/plasma values. (CLIA ID [id number]) 11/28/2020 10:18 AM 166 (H) 70 - 100 mg/dL Final Comment: Test performed by glucose meter. Results may be 10%-15% lower than serum/plasma values. (CLIA ID [id number]) 11/28/2020 07:57 AM 215 (H) 70 - 100 mg/dL Final Comment: Test performed by glucose meter. Results may be 10%-15% lower than serum/plasma values. (CLIA ID [id number]) 11/27/2020 09:08 PM 91 70 - 100 mg/dL Final Comment: Test performed by glucose meter. Results may be 10%-15% lower than serum/plasma values. (CLIA ID [id number]) Review of Systems Constitutional: Positive for appetite [...] before lunch/285 units before dinner Lactobacillus Acid-Pectin (Acidophilus/P[place]mouth Pectin) tablet 1 tablet, Oral, 2 times [...] found for: CHOLHDLRATIO No results found for: [id number] Lab Results Component Value Date TSH 2.356 11/26/2020 Radiology reportsas per the Radiologist Radiology: ECG 12 lead Result Date: 06/28/2023 Sinus tachycardia Nonspecific IVCD with LAD Left ventricular hypertrophy Minimal ST elevation, anterolateral leads Electronically Signed On 06-28-2023 5:20:13 EDT by Rosaura Mustafa CT chest angiogram w and/or wo IV contrast Result Date: 06/28/2023 Patient Name: WILL JACINTO : 1965 [facility]#: [id number] Exam Date/Time: 06/28/2023 03:49 Procedure: CT CHEST [...] Chucho Stirnger MD Electronically Signed Date/Time: 06/28/2023 3:08 AM EDT History/Other: 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 other toe(s), unspecified side (HCC) Anxiety disorder Bipolar 1 disorder ([facility]) Blood circulation, collateral Cellulitis chronic L lower leg COVID 12/08/2021 Depression Diabetes mellitus ([facility]) Type II, on insulin Disease of blood and blood forming organ Endometrial carcinoma ([facility]) 11/25/2020 Endometrial hyperplasia Foot ulcer ([facility]) Hx of blood clots RLE prior to amputation Hyperlipidemia Hypertension Lymphedema 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 [employer] Phone: 1(639) 462-688708-21-2023 Note* Care Coordination - Herber Armando RN - 06/28/2023 10:12 AM EDT Care Managment Initial Assessment Date: 06/28/2023 Patient Name: Will Jacinto : 1965 Patient Information Source of Information: Patient Cognition/Language: WFL - Within Functional Limits Permission given to speak with patient rental sales representative/caregiver as indicated: Yes (Jovana Quesada ([facility]) [phone]) Confirmation of Payer with patient/family: Yes Payer Name: [facility] English Helper : No Confirmation of Primary Care Physician: Confirmed PCP Name: Jared Guzman Seen in last 2 years?: Yes Primary Caregiver: Other (Comment) ([facility] staff) If assistance needed, confirmed caregiver ready, willing and able to care for patient at discharge:Yes Confirmed with: Patient states staff from [facility] Living Arrangements Current Residence: ([facility]) Number of Floors Number of Entry Steps: Bed/Bath Levels: Facility: [facility] Care Facility Name: [facility] Plan to Return: Yes Lives with: Support Systems: Family members Activities of Daily Living Ambulation: Total Care (wheelchair) Bathing/Dressing: Total Care Elimination/Continence/Toileting: Assistance Feeding: Independent Who Assists with Activities of Daily Living: Staff from [facility] Instrumental Activities of Daily Living Prescription Coverage: Yes Pharmacy Used: Pharmacy through [facility] Medication Management: Assistance Type: Dose packaging system Who assists with medication securing and setup?: [facility] staff Transportation/Shopping: Assistance Provider Transportation Mode: Needs Assistance with Transportation at Discharge: No Meal Preparation: Assistance Provider Meal Prep Assistance Provider Name: [facility] staff Laundry/Cleaning: Assistance Provider Laundry/Cleaning Assistance Provider Name: [facility] staff Finances/Bill Paying: Assistance Provider Finances/Bill Payer Assistance Provider Name: Family Communication: Independent Types of Care Services/Equipment Utilized Care Services: Dialysis Type: NA Durable Medical Equipment: Wheelchair (standard or power) Patient's Goal/Discharge Plan Patient expects to be discharged to: Back to [facility]. Discharge Planning Actions: Continue to [...] R bka, is wheelchair bound. Lives at [facility] and plans to return. Cardiology consulted. Task sent to [facility] via [facility] to [facility] return referral to [facility]. TCC will continue to follow. Herber Armando RN [id number] Note* Care Coordination - Herber Armando RN - 06/28/2023 10:12 AM EDT Care Managment Initial Assessment Date: 06/28/2023 Patient Name: Will Jacinto : 1965 Patient Information Source of Information: Patient Cognition/Language: WFL - Within Functional Limits Permission given to speak with patient rental sales representative/caregiver as indicated: Yes (Jovana Quesada ([facility]) [phone]) Confirmation of Payer with patient/family: Yes Payer Name: [facility] Dual [place]: No Confirmation of Primary Care Physician: Confirmed PCP Name: Jared Guzman Seen in last 2 years?: Yes Primary Caregiver: Other (Comment) ([facility] staff) If assistance needed, confirmed caregiver ready, willing and able to care for patient at discharge:Yes Confirmed with: Patient states staff from [facility] Living Arrangements Current Residence: ([facility]) Number of Floors Number of Entry Steps: Bed/Bath Levels: Facility: [facility] Care Facility Name: [facility] Plan to Return: Yes Lives with: Support Systems: Family members Activities of Daily Living Ambulation: Total Care (wheelchair) Bathing/Dressing: Total Care Elimination/Continence/Toileting: Assistance Feeding: Independent Who Assists with Activities of Daily Living: Staff from [facility] Instrumental Activities of Daily Living Prescription Coverage: Yes Pharmacy Used: Pharmacy through [facility] Medication Management: Assistance Type: Dose packaging system Who assists with medication securing and setup?: [facility] staff Transportation/Shopping: Assistance Provider Transportation Mode: Needs Assistance with Transportation at Discharge: No Meal Preparation: Assistance Provider Meal Prep Assistance Provider Name: [facility] staff Laundry/Cleaning: Assistance Provider Laundry/Cleaning Assistance Provider Name: [facility] staff Finances/Bill Paying: Assistance Provider Finances/Bill Payer Assistance Provider Name: Family Communication: Independent Types of Care Services/Equipment Utilized Care Services: Dialysis Type: NA Durable Medical Equipment: Wheelchair (standard or power) Patient's Goal/Discharge Plan Patient expects to be discharged to: Back to [facility]. Discharge Planning Actions: Continue to [...] R bka, is wheelchair bound. Lives at [facility] and plans to return. Cardiology consulted. Task sent to [facility] via [facility] to place return referral to [facility]. TCC will continue to follow. Herber Armando RN [facility] [id number] Consult note* Supriya Baeza MD - 06/28/2023 9:16 AM EDT Associated Order(s): IP CONSULT TO CARDIOLOGY [facility] CARDIOLOGY CONS[facility]ATION Patient Name: Will Jacinto [...] Above knee amputation of right lowerextremity ([facility]), Acquired absence of other toe(s), unspecified side ([facility]), Anxiety disorder, Bipolar 1 disorder ([facility]), Blood circulation, collateral, Cellulitis, COVID (12/08/2021), Depression, Diabetes mellitus ([facility]), Disease of blood and blood forming organ, Endometrial carcinoma ([facility]) (11/25/2020), Endometrial hyperplasia, Foot ulcer ([facility]), blood clots, Hyperlipidemia, Hypertension, Lymphedema,MDRO (multiple drug resistant organisms) resistance, Morbidly obese ([facility]), Muscle weakness, Osteomyelitis ([facility]), Osteomyelitis (HCC) (2018), Other lack of coordination, Other specified soft tissue disorders, Other symbolic dysfunctions, Schizophrenia ([facility]), Sleep apnea, and Venous insufficiency. He has no past medical history of Arthritis, Asthma, CAD (coronary artery disease), Cerebral arteryocclusion with cerebral infarction ([facility]), CHF (congestive heart failure) ([facility]) ([facility]), Chronic kidney disease, COPD (chronic obstructive pulmonary disease) ([facility]), GERD (gastroesophageal reflux disease), Hemodialysis patient ([facility]) ([facility]), History of blood transfusion, Liver disease, Movement disorder, Neuromuscular disorder ([facility]), Other disorders of kidney and ureter in diseases classified elsewhere, Pneumonia, Seizures ([facility]), or Thyroid disease. SurgicalHistory: has a past surgical history that includes [place] tooth extraction; Dilation and curettage of uterus(05/18/2019); [...] units before dinner Historical Provider, Lactobacillus Acid-Pectin (Acidophilus/Plymouth Pectin) tablet Take 1 tablet by mouth [...] lung volumes. No acute infiltrate or effusion. [employer] Work Phone: 1(391) 252-274808-21-2023 History and physical note* Nabil Hill, - [...] absence of other toe(s), unspecified side ([facility]) Anxiety disorder Bipolar 1 disorder ([facility]) Blood circulation, collateral Cellulitis chronic L lower leg COVID 12/08/2021 Depression Diabetes mellitus ([facility]) Type II, on insulin Disease of blood and blood forming organ Endometrial carcinoma ([facility]) 11/25/2020 Endometrial hyperplasia Foot ulcer ([facility]) Hx of blood clots RLE prior to amputation Hyperlipidemia Hypertension Lymphedema MDRO (multiple drug resistant organisms) resistance hx CRE and MRSA in 2018, RLE Morbidly obese ([facility]) Muscle weakness Osteomyelitis ([facility]) Osteomyelitis ([facility]) 2019 RLE Other lack of coordination Other specified soft tissue disorders Other symbolic dysfunctions Schizophrenia ([facility]) Sleep apnea no CPAP Venous insufficiency Past [...] before lunch/285 units before dinner Lactobacillus Acid-Pectin (Acidophilus/P[place]mouth Pectin) tablet Take 1 tablet by mouth [...] trops NABIL HILL DO 06/28/23 8:42 AM [facility] [id number] History and physical note* Nabil Hill DO [...] (HCC) Anxiety disorder Bipolar 1 disorder ([facility]) Blood circulation, collateral Cellulitis chronic L lower leg COVID 12/08/2021 Depression Diabetes mellitus ([facility]) Type II, on insulin Disease of blood and blood forming organ Endometrial carcinoma ([facility]) 11/25/2020 Endometrial hyperplasia Foot ulcer ([facility]) Hx of blood clots RLE prior to amputation Hyperlipidemia Hypertension Lymphedema MDRO (multiple drug resistant organisms) resistance hx CRE and MRSA in 2018, RLE Morbidly obese ([facility]) Muscle weakness Osteomyelitis (HCC) Osteomyelitis ([facility]) 2019 RLE Other lack of coordination Other specified soft tissue disorders Other symbolic dysfunctions Schizophrenia ([facility]) Sleep apnea no CPAP Venous insufficiency Past [...] before lunch/285 units before dinner Lactobacillus Acid-Pectin (Acidophilus/P[place]mouth Pectin) tablet Take 1 tablet by mouth [...] hyperglycemia, with long-term current use of insulin ([facility]/HCC) (HCC) Hyperglycemia Post-menopausal bleeding Morbid obesity (HCC) Left leg cellulitis Diabetic foot infection ([facility]) S/P AKA (above knee amputation) unilateral, right ([facility]) Class 3 severe obesity due to excess calories with serious comorbidity and body mass index (BMI) of60.0 to 69.9 in adult ([facility]) Chest pain Chest pain Nausea and vomiting DM 2 Morbid obesity HPL HTN Plan Admit to tele Consult cardio Consult endo Consult gi Clears and ivf for now Serial trops NABIL HILL DO 06/28/23 8:42 AM documented in this [facility]08-21-2023 Note* Significant Event - Ramsey Mc MD - 06/28/2023 7:59 AM EDT Patient was referred to the [facility] for admission but his primary care physician is covered by Dr. Hill. Dr. Hill will see and admit. Attending changed to Dr. Hill. [employer] Phone: [phone]) 775-483308-21-2023 Note* Significant Event - Ramsey Mc MD - 06/28/2023 7:59 AM EDT Patient was referred to the [facility] service for admission but his primary care physician is covered by Dr. Hill. Dr. Hill will see and admit. Attending changed to Dr. Hill. [employer] Phone: [phone]) 549-302408-21-2023 NoteSuboptimal opacification of the pulmonary arteries. This [...] MD Electronically Signed Date/Time: 06/28/2023 4:37 AM [facility] [id number] Emergency department Note* Dalila Mendes RN - 06/28/2023 2:14 AM EDT Bed: 33 Expected date: Expected time: Means of arrival: Comments: EMS Dalila Mendes RN 06/28/23 0214 [facility] [id number] Emergency department Note* Rosaura Mustafa DO - [...] Response: Oriented Best Motor Response: Follows commands [place] Coma Scale Score: 15 HEART Score History: [...] Pt presents to ED via EMS from [facility]. Pt is experiencing chest pain that started before midnight. Pt has also been vomiting today. Pt denies hx of [place]. * Dalila Mendes RN - 06/28/2023 2:14 AM EDT Bed: 33 Expected date: Expected time: Means of arrival: Comments: EMS Dalila Mendes RN 06/28/23 0214 documented in this [facility]08-21-2023 Emergency department Triage note* Melissa Sosa RN - 06/28/2023 2:14 AM EDT Pt presents to ED via EMS from [facility]. Pt is experiencing chest pain that started before midnight. Pt has also been vomiting today. Pt denies hx of [place]. [facility] [id number] Physician Emergency department Note* Rosaura Mustafa DO [...] Alcohol use: No Drug use: Never SCREENINGS [place] Coma Scale Best Eye Response: Spontaneous Best [...] Medicine Provider Rosaura Mustafa DO 06/28/23 0523 [place] [id number] Telephone encounter Note* Telephone Encounter - Radha Busby MA - 06/23/2023 8:22 AM EDT [facility] spoke with nurse minesh. I relayed the message below and she verbalized understanding. [id number] Miscellaneous Notes* Telephone Encounter - Radha Busby MA - 06/23/2023 8:22 AM EDT [facility] spoke with nurse minesh. I relayed the message below and she verbalized understanding. * Telephone Encounter - Geronimo Lee MD - 06/22/2023 4:43 PM EDT Keep doses the same for now thank you * Telephone Encounter - Jackson Pratt - 06/22/2023 3:35 PM EDT Images from the original note were not included. Patient BGL documented in this encounterSAdams [facility] Medical CenterMvpxeh93-15-3626 Telephone encounter Note* Telephone Encounter - Geronimo Lee MD - 06/22/2023 4:43 PM EDT Keep doses the same for now thank you [facility] [employer] Phone: [phone]) 950-469108-15-2023 Telephone encounter Note* Telephone Encounter - Jackson Pratt - 06/22/2023 3:35 PM EDT Images from the original note were not included. Patient BGL [facility] [id number] Telephone encounter Note* Telephone Encounter - Idalmis Rodriguez MA - 05/18/2023 11:32 AM EDT Called patient and left message stating there is no changes at this time. [id number] Miscellaneous Notes* Telephone Encounter - Idalmis Rodriguez [...] Patient BGL documented in this encounterSAdams County Regional Medical CenterSqziqa91-05-7635 Telephone encounter Note* Telephone Encounter - Geronimo Lee MD - 05/17/2023 4:48 PM EDT Keep doses the same increased trulicity already [facility] [employer] [facility] Phone: [phone] Telephone encounter Note* Telephone Encounter - Jackson Pratt - 05/17/2023 3:35 PM EDT Images from the original note were not included. Patient BGL [facility] [id number] Note* Addendum Note - Radha Busby MA - 05/07/2023 10:05 AM EDTAddended by: RADHA BUSBY on: 05/07/2023 10:05 AM Modules accepted: Orders [facility] [id number] Miscellaneous Notes* Addendum Note - Radha Busby MA - 05/07/2023 10:05 AM EDTAddended by: RADHA BUSBY on: 05/07/2023 10:05 AM Modules accepted: Orders * Telephone Encounter - Radha Busby MA - 05/07/2023 10:04 AM EDT Called [facility] and spoke with nurse don. [...] Patient BGL documented in this encounterSAdams County Regional Medical CenterFrtjdq35-88-2960 Telephone encounter Note* Telephone Encounter - Radha Busby MA - 05/07/2023 10:04 AM EDT Called [facility] and spoke with nurse don. I relayed the message below and she verbalized understanding. Med req updated. [facility] [id number] Telephone encounter Note* Telephone Encounter - Geronimo Lee MD - 05/06/2023 11:19 AM EDT Please increase trulicity to 4.5 mg weekly thank you [facility] [employer] Work Phone: [phone]) [phone] Miscellaneous Notes* Telephone Encounter - Geronimo Lee [...] not included. Patient BGL documented in this [facility]06-29-2023 Telephone encounter Note* Telephone Encounter - Radha Busby MA - 05/06/2023 10:18 AM EDT Patient is currently taking Humulin R u500 (285 units before breakfast/260 units before lunch/285 units before dinner) Trulicity 3mg weekly [facility] [id number] Telephone encounter Note* Telephone Encounter - Geronimo Lee MD - 05/05/2023 4:27 PM EDT Please confirm current insulin doses thank you [facility] HospitalDbpnyd04-75-5720 Telephone encounter Note* Telephone Encounter - Jackson Pratt - 05/05/2023 3:27 PM EDT Images from the original note were not included. Patient BGL [facility] [id number] Hospital Discharge instructions* Discharge Instructions* Jocelyn Santos MD - 03/08/2023 3:59 PM EDT Return to the ED if you cannot tolerate fluids with the Reglan. * Attachments The following attachments cannot be sent through Care Everywhere. * Gastroparesis (Delayed Gastric Emptying) ([place]) documented in this [facility]05-01-2023 Emergency department Note* Joellen Palmer RN - 03/08/2023 12:50 PM EDT Bed: 18 Expected date: Expected time: Means of arrival: Comments: Physicians Joellen Palmer RN 03/08/23 1250 [facility] [id number] Emergency department Note* Karlos Osborn DO - 03/08/2023 12:50 PM EDT Emergency Department Encounter [facility] ED Patient: Will Jacinto : 1965 Date [...] of a CMP which was relatively unremarkable, prupz-so-apgl glucose was 167, CBC was relatively unremarkable. [...] Palmer RN 03/08/23 1250 documented in this [facility]05-01-2023 Physician Emergency department Note* Karlos Osborn DO - 03/08/2023 12:50 PM EDT Emergency Department Encounter [facility] ED Patient: Will Jacinto : 1965 Date [...] of a CMP which was relatively unremarkable, lfwjp-zu-olsu glucose was 167, CBC was relatively unremarkable. [...] [employer] Karlos Osborn DO 03/08/23 1623 [employer] Phone: [phone]) [phone] Telephone encounter Note* Telephone Encounter - Radha Busby MA - 03/01/2023 9:01 AM EDT Patient received message. [id number] Miscellaneous Notes* Telephone Encounter - Radha Busby [...] Patient BGL documented in this encounterSAdams County Regional Medical CenterImgpci22-78-2467 Telephone encounter Note* Telephone Encounter - Radha Busby MA - 02/26/2023 1:39 PM EDT Called patient and left message to contact office. [id number] Miscellaneous Notes* Telephone Encounter - Radha Busby [...] Patient BGL documented in this encounterSAdams County Regional Medical CenterTqoemk64-94-8246 Telephone encounter Note* Telephone Encounter - Geronimo Lee MD - 02/26/2023 11:18 AM EDT Increase morning u500 insulin dose by 25 units please thank you [facility] [id number] Telephone encounter Note* Telephone Encounter - Jackson Pratt - 02/25/2023 3:35 PM EDT Images from the original note were not included. Patient BGL [place] [id number] History of Present illness Narrative* Geronimo Lee MD - 02/09/2023 9:20 AM EDT . ENDOCRINOLOGY [place] [address] [place] [address] Dept: [phone] Dept Visit type: Established patient Reason for Visit: Follow-up (DM2) Assessment and Plan 1. Type 2 diabetes mellitus with hyperglycemia, with long-term current use of insulin ([facility]) ([facility]) 2. Mixed hyperlipidemia 3. Primary hypertension No [...] underthe skin 3 times daily. Lactobacillus Acid-Pectin (Acidophilus/[place] Pectin) tablet Take 1 tablet by mouth [...] (HCC) Anxiety disorder Bipolar 1 disorder ([facility]) Blood circulation, collateral Cellulitis chronic L lower leg COVID 12/08/2021 Depression Diabetes mellitus ([facility]) Type II, on insulin Disease of blood and blood forming organ Endometrial carcinoma (HCC) 11/25/2020 Endometrial hyperplasia Foot ulcer ([facility]) Hx of blood clots RLE prior to amputation Hyperlipidemia Hypertension Lymphedema MDRO (multiple drug resistant organisms) resistance hx CRE and MRSA in 2018, RLE Morbidly obese ([facility]) Muscle weakness Osteomyelitis (HCC) Osteomyelitis (HCC) 2019 RLE Other lack of coordination Other specified soft tissue disorders Other symbolic dysfunctions Schizophrenia ([facility]) Sleep apnea no CPAP Venous insufficiency Social [...] 1.25 mg/dL 0.73 EGFR >60 mL/min >90.0 [facility] EGFR IF NONAFRICAN [place]ESE >60 mL/min >90.0 GLUCOSE 70 - 100 mg/dL 119 (H) CALCIUM 8.4 - 10.4 mg/dL 9.4 (H): Data is abnormally high Latest Reference Range & Units 08/29/20 00:00 11/23/20 03:51 07/20/22 00:00 HEMOGLOBIN A1C 5.7 % 9.9 10.0 ! 10.1 ! (E) !: Data is abnormal (E): External lab result Imaging/Testing: Geronimo Lee MD documented in this [facility]01-21-2021 NoteHospitalist Discharge Summary Will Jacinto : [...] transgender male, biologically female, presented from his skilled nursing after abdominal pain, out of control glucose readings and reported mental status change. However, EMS in the hospital reported that he was alert and oriented x3, however, he says that recently he has had increasing abdominal distention and distress and he noticed that his glucoses have been harder and harder to control. Pt was admitted to [facility]. Pt had dysfunctinal uterine bleeding and transferred to [facility] for [facility] eval. Also had ab pain and found to have ileus. Seen by GI and recommended reglan. Pt had BMs. abd pain better. Advance diet to GI soft Seen by [facility] and had hysteroscopy with biopsy done KUB [...] 08/23/2020 No results found for: PHART, PO2ART, SWY8LPI No results for input(s): INR in the [...] Radiology ACCESSION EXAM DATE/TIME PROCEDURE ORDERING PROVIDER [id number] 11/27/2020 08:28 EST CR Abdomen AP MD MARTIN KHALED CPT code 23197 Reason For Exam (CR Abdomen AP) ileus Report ABDOMEN -1 VIEW: CLINICAL INDICATION: Ileus TECHNIQUE: 1 view of abdomen and pelvis COMPARISON: November 25, 2020 FINDINGS: Overall interval decrease in the amount of large and small bowel gas, which is in a nonobstructed pattern. No abnormal soft tissue calcifications are identified. Multilevel thoracolumbar degenerative change. IMP (more content not included)...[facility] SystemEvaluation noteNo assessment information availableWACMC Healthcare System Work Phone: Evaluation note* Diagnosis Dental caries- Primary Unspecified dental caries [facility] Diagnosis Type 2 diabetes mellitus with hyperglycemia, with long-term current use of insulin ([facility]) ([facility])- Primary Mixed hyperlipidemia Primary hypertension Unspecified essential hypertension [facility]* Diagnosis Abdominal pain, generalized- Primary Gastroparesis documented in this encounter [facility] HospitalEvaludelaware [facility] note* Diagnosis Chest pain, unspecified type Chest pain, unspecified type documented in this encounter [facility] HospitalEvaludelaware [facility] note* Diagnosis Pyelonephritis- Primary Unspecified pyelonephritis Upper abdominal pain Nausea Nausea alone documented in this encounter [facility]* Diagnosis Upper abdominal pain- Primary Upper abdominal pain Hypoglycemia Hypoglycemia, unspecified Abdominal pain Abdominal pain, unspecified site documented in this encounter [facility] HospitalEvaludelaware [facility] note* Diagnosis Hypoglycemia due to insulin- Primary Hypoglycemia Hypoglycemia, unspecified Hypothermia, initial encounter Altered mental status, unspecified altered mental status type penitentiary (current) use of antibiotics Hypothermia, not associated with low environmental temperature Diabetic gastroparesis associated with type 2 diabetes mellitus ([facility]) ([facility]) Type II or unspecified type diabetes mellitus with neurological manifestations, not stated as uncontrolled Type 2 diabetes mellitus with hyperglycemia, with long-term current use of insulin ([facility]) Class 3 severe obesity due to excess calories with serious comorbidity and body mass index (BMI) of 60.0 to 69.9 in adult ([facility]) Acinetobacter lwoffi infection Infection due to other gram-negative organisms in conditions classified elsewhere and of unspecified site Bacteremia due to Gram-negative bacteria Sepsis without acute organ dysfunction ([facility]) documented in this encounter [facility]Eval[facility] note* Diagnosis Type 2 diabetes mellitus with hyperglycemia, with long-term current use of insulin ([facility])- Primary Mixed hyperlipidemia Primary hypertension Unspecified essential hypertension documented in this encounter [facility]* Diagnosis Nausea vomiting and diarrhea- Primary Dehydration documented in this encounter [facility]* Diagnosis Nausea with vomiting, unspecified documented in this encounter [facility]* Diagnosis Nausea and vomiting, unspecified vomiting type- Primary documented in this encounter [facility]* Diagnosis Nausea and vomiting, unspecified vomiting type- Primary Cystitis Unspecified cystitis documented in this encounter [facility]* Diagnosis Hypoglycemia- Primary Hypoglycemia, unspecified documented in this encounter [facility]* Diagnosis Nausea with vomiting, unspecified- Primary Nausea with vomiting, unspecified documented [facility] encounter [facility]* Diagnosis Lung nodule- Primary Other diseases of lung, not elsewhere classified JOHN (obstructive sleep apnea) Obstructive sleep apnea (adult) (pediatric) Morbid obesity with BMI of 45.0-49.9, adult ([facility]) documented in this encounter [facility]* Diagnosis Solitary pulmonary nodule- Primary documented in this encounter [facility]* Diagnosis Acute cholecystitis- Primary Acute cholecystitis documented in this encounter [facility]* Diagnosis Hypoglycemic episode in patient with diabetes mellitus (HCC)- Primary documented in this encounter [facility]* Diagnosis Cholecystitis- Primary Cholecystitis, unspecified documented in this encounter [facility]* Diagnosis History of cholecystitis- Primary documented in this encounter [facility]* Diagnosis Cholecystitis- Primary Cholecystitis, unspecified documented in this encounter [facility]* Diagnosis Cholecystitis- Primary Cholecystitis, unspecified Morbid obesity ([facility]) Morbid obesity Class 3 severe obesity with serious comorbidity and body mass index (BMI) of 50.0 to 59.9 in adult, unspecified obesity type (HCC) documented in this encounter [facility] note* Diagnosis Fecal occult blood test positive- Primary History of anemia Personal history of diseases of blood and blood-forming organs Calculus of gallbladder without cholecystitis without obstruction BMI 50.0-59.9, adult ([facility]) documented in this encounter [facility]* Diagnosis Type 2 diabetes mellitus with hyperglycemia, with long-term current use of insulin ([facility])- Primary Type 2 diabetes mellitus with diabetic autonomic neuropathy, with long-term current use of insulin ([facility]) Microalbuminuria Proteinuria Essential hypertension Unspecified essential hypertension Mixed hyperlipidemia Class 3 severe obesity due to excess calories with serious comorbidity and body mass index (BMI) of 45.0 to 49.9 in adult ([facility]) Other fecal abnormalities Personal history of diseases of the blood and blood-forming organs and certain disorders involving the immune mechanism Calculus of gallbladder without cholecystitis without obstruction Body mass index (BMI) 50.0-59.9, adult ([facility]) documented in this encounter [facility] note* Diagnosis PAD (peripheral artery disease) ([facility])- Primary Unspecified peripheral vascular disease Hx of AKA (above knee amputation), right ([facility]) Lymphedema of left leg Morbid obesity ([facility]) Morbid obesity Other fecal abnormalities Personal history of diseases of the blood and blood-forming organs and certain disorders involving the immune mechanism Calculus of gallbladder without cholecystitis without obstruction Body mass index (BMI) 50.0-59.9, adult ([facility]) documented in this encounter [facility] note* Diagnosis PAD (peripheral artery disease) ([facility]) Unspecified peripheral vascular disease Other fecal abnormalities Personal history of diseases of the blood and blood-forming organs and certain disorders involving the immune mechanism Calculus of gallbladder without cholecystitis without obstruction Body mass index (BMI) 50.0-59.9, adult ([facility]) documented in this encounter [facility] note* Diagnosis Type 2 diabetes mellitus with hyperglycemia, with long-term current use of insulin ([facility])- Primary Type 2 diabetes mellitus with diabetic autonomic neuropathy, with long-term current use of insulin ([facility]) Hypertension associated with type 2 diabetes mellitus ([facility]) Mixed diabetic hyperlipidemia associated with type 2 diabetes mellitus ([facility]) Class 3 severe obesity due to excess calories with serious comorbidity and body mass index (BMI) of 45.0 to 49.9 in adult Microalbuminuria Proteinuria Other fecal abnormalities Personal history of diseases of the blood and blood-forming organs and certain disorders involving the immune mechanism Calculus of gallbladder without cholecystitis without obstruction Body mass index (BMI) 50.0-59.9, adult ([facility]) documented in this encounter [facility] note* Diagnosis Acute nonintractable headache, unspecified headache type- Primary Nausea Nausea alone Acute cystitis without hematuria Hyperglycemia Other abnormal glucose documented in this encounter [facility] note* Diagnosis Type 2 diabetes mellitus with hyperglycemia, with long-term current use of insulin ([facility])- Primary Insulin resistance Other abnormal glucose Type 2 diabetes mellitus with peripheral neuropathy ([facility]) Type 2 diabetes mellitus with albuminuria ([facility]) ([facility]) (HCC) Hypertension associated with type 2 diabetes mellitus ([facility]) Type 2 diabetes mellitus with hyperlipidemia ([facility]) ([facility]) documented in this encounter [facility] Discharge instructions* Attachments The following attachments cannot be sent through Care Everywhere. * Kidney Infection Discharge Instructions ([place]) documented in this [facility] Discharge instructions* Attachments The following attachments cannot be sent through Care Everywhere. * Acute Cystitis Discharge Instructions ([place]) * Nausea and Vomiting, Adult ED ([place]) documented in this [facility] Discharge instructions* Attachments The following attachments cannot be sent through Care Everywhere. * Upper GI Endoscopy Discharge Instructions ([place]) documented in this [facility] for referral (narrative)No reason for referral information [facility] Work Phone: Reason for visit Narrative* Imaging (Routine) - Closed Specialty Diagnoses / Procedures [facility] To Contact Cardiology Diagnoses PAD (peripheral artery disease) ([facility]) Procedures Vascular US lower extremity arterial PVR Alejandro Mandel, JEREMY - ARCHITECTURAL DRAFTSPERSON [address] [place] [id number] Phone: tel: fax: Referral ID Status Reason Start Date Expiration Date Visits Re quested Visits Authorized [id number] Closed 02/01/2025 02/01/2026 1 1 [facility] for visit Narrative* Auth/Cert (Routine) Specialty Diagnoses / Procedures Referred By [facility] Referred To Contact Diagnoses Other fecal abnormalities Personal history of diseases of the blood and blood-forming organs and certain disorders involving the immune mechanism Calculus of gallbladder without cholecystitis without obstruction Body mass index (BMI) 50.0-59.9, adult (HCC) Procedures NE COLONOSCOPY FLX DX W/COLLJ SPEC WHEN PFRMD NE ESOPHAGOGASTRODUODENOSCOPY TRANSORAL DIAGNOSTIC COLONOSCOPY ESOPHAGOGASTRODUODENOSCOPY, DIAGNOSTIC Farhad Chavez MD [address] [place] [address] Phone: tel: fax: [facility] [address] [place] [address] Phone: tel: Referral ID Status Reason Start Date Expiration Date Visits Re quested Visits Authorized 1 1 [facility] Summary Purpose Family History No Family History Records FoundNo Family History Records FoundNo Family History Records FoundNo Family History Records FoundNo Family History Records FoundNo Family History Records FoundNo Family History Records FoundNo Family History Records FoundNo Family History Records Found Advance Directives No Advanced Directives Records FoundDocuments on File Type Date Recorded Patient Juice Bar Team Member Expl anation DNR (Do Not Resuscitate) 09/17/2020 Date Activated Date Inactivated Comments 12/31/2023 8:33 PM 01/11/2024 8:41 PM Date Activated Date Inactivated Comments 10/07/2023 4:58 PM 10/17/2023 2:13 AM Date Activated Date Inactivated Comments 08/17/2023 10:49 PM 08/19/2023 10:57 PM Date Activated Date Inactivated Comments 06/28/2023 8:48 AM 07/01/2023 4:24 PM Healthcare Agents on File Name Relationship Healthcare Agent [facility] Communication [facility] (A) [facility] Care Agent Documents on File Type Date Recorded Patient Juice Bar Team Member Expl anation Advance Directives and Living Will Power of Printed Circuit Board Designer Latest Code Status on File Code Status Date Activated Date Inactivated Comments Full Code 06/14/2019 6:51 PM 06/20/2019 9:23 PM Full Code 05/16/2019 6:59 PM 05/20/2019 11:51 PM Full Code 05/16/2019 8:10 AM 05/16/2019 9:40 AM Full Code 05/16/2019 6:16 AM 05/16/2019 8:09 AM Full Code 01/11/2019 10:40 PM 01/17/2019 5:31 PM Documents on File Type Date Recorded Patient Juice Bar Team Member Expl anation ACP-Advance Directive ACP-Power of Printed Circuit Board Designer Latest Code Status on File Code Status Date Activated Date Inactivated Comments Full Code 09/18/2020 1:15 AM Full Code 06/14/2019 6:51 PM 06/20/2019 9:23 PM Documents on File Type Date Recorded Patient Juice Bar Team Member Expl anation ACP-Advance Directive ACP-Power of Printed Circuit Board Designer DNR Documentation 10/01/2020 12:28 PM Latest Code [...] Documents on File Type Date Recorded Patient Juice Bar Team Member Expl anation DNR (Do Not Resuscitate) 09/17/2020 [...] Agent Relationshi p Communication Jovana Quesada (POA) [facility] Agent Documents on File Type Date Recorded Patient Juice Bar Team Member Expl anation DNR (Do Not Resuscitate) 10/24/2024 12:44 PM DNR (Do Not Resuscitate) 09/17/2020 Healthcare Agents on File Name Relationship Healthcare Agent Jchi p Communication Jovana Quesada (POA) [facility] Care Agent Documents on File Type Date Recorded Patient Juice Bar Team Member Expl anation DNR (Do Not Resuscitate) 2024 1:55 PM DNR (Do Not Resuscitate) 10/24/2024 12:44 PM DNR (Do Not Resuscitate) 09/17/2020 Documents on File Type Date Recorded Patient Juice Bar Team Member Expl anation DNR (Do Not Resuscitate) 2024 [...] Documents on File Type Date Recorded Patient Juice Bar Team Member Expl anation DNR (Do Not Resuscitate) 12/04/2024 [...] Documents on File Type Date Recorded Patient Juice Bar Team Member Expl anation DNR (Do Not Resuscitate) 12/04/2024 [...] Name Relationship Healthcare Agent Relationshi p Communication Joavna Quesada (POA) [facility] Care Agent Healthcare [...] Agent Relationshi p Communication Jovana Quesada (POA) [facility] Care Agent Healthcare Agents on File Name Relationship Healthcare Agent Relationshi p Communication Jovana Quesada (POA) [facility] Care Agent Discharge Instructions * Attachments The following attachments cannot be sent through Care Everywhere. * Post-op Infection ([place]) documented in this encounter* Instructions* Eva Awan RN - 01/02/2020 U500 Insulin: The physician managing your U500 insulin should give specific recommendations before your surgery. Please call the managing physician's office if you do not already have instructionsin regards to your insulin. Please bring your [facility] Information folder on the day of [...] sent through Care Everywhere. * Hysteroscopy: Pre-op ([place]) * levonorgestrel intrauterine system ([place]) documented in this encounter* Discharge Instr - [...] Hospital Unit/Room#: 268/2681 Discharging Unit Phone Number: [phone] Emergency Contact: Extended Emergency Contact Information Primary Emergency Contact: Apoorva Lubin 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 Chronic acquired lymphedema I89.0 Left leg cellulitis L03.116 Class 3 severe obesity due to excess calories with serious comorbidity and body mass index (BMI) of60.0 to 69.9 in adult ([facility]) E66.01, Z68.44 Post-menopausal bleeding N95.0 Hyperglycemia R73.9 Diabetic foot infection ([facility]) E11.628, L08.9 S/P AKA (above knee amputation) unilateral, right ([facility]) Z89.611 Morbid obesity ([facility]) E66.01 Ileus ([facility]) K56.7 Isolation/Infection: Isolation Contact Patient Infection Status [...] Dependent Dressing Dependent Toileting Dependent Feeding Assisted Order Analyst Assisted Med Delivery none Wound Care Documentation [...] Discharging to Facility/ Agency Name: [facility] Address: [address] [place] [address] Dialysis Facility (if applicable) Name: Address: Dialysis Schedule: Phone: Fax: Industrial Gas Production Operator/Body Piercer signature: at11:40 AM EST PHYSICIAN SECTION Prognosis: [...] fax BG logs to Dr. Lee at [phone] in 2 weeks. documented in this encounter* [...] Agent's Name Healthcare Agent's Phone Number 11/22/20 2309 No, patient does not have an advance directive for healthcare treatment -- -- -- -- -- Admitting Physician: Art Stapleton MD PCP: Jared Guzman MD Discharging Nurse: Bishnu [facility] Hospital Unit/Room#: 158/1581 Discharging Unit Emergency Contact: Extended Emergency Contact Information Primary Emergency Contact: Apoorva Lubin 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 Chronic acquired lymphedema I89.0 Left leg cellulitis L03.116 Class 3 severe obesity due to excess calories with serious comorbidity and body mass index (BMI) of60.0 to 69.9 in adult ([facility]) E66.01, Z68.44 Post-menopausal bleeding N95.0 Hyperglycemia R73.9 Diabetic foot infection ([facility]) E11.628, L08.9 S/P AKA (above knee amputation) unilateral, right ([facility]) Z89.611 Morbid obesity ([facility]) E66.01 Ileus ([facility]) K56.7 Nausea and vomiting R11.2 Esophagitis K20.90 Hypertension I10 Diabetic hyperosmolar non-ketotic state ([facility]) E11.00 Isolation/Infection: Isolation Contact Patient Infection Status [...] Assisted Dressing Assisted Toileting Assisted Feeding Assisted Order Analyst Assisted Med Delivery whole Wound Care Documentation [...] Discharging to Facility/ Agency Name: [facility] (aka [facility]) Address: [address] [address] Dialysis Facility (if applicable) Name: Address: Dialysis Schedule: Phone: Fax: Industrial Gas Production Operator/Body Piercer signature: PHYSICIAN SECTION Prognosis: Good Condition at [...] MD Discharging Nurse: Nicolle Dischsue Hospital Unit/Room#: [id number]/[id number] Discharging Unit Emergency Contact: Extended Emergency Contact Information Primary Emergency Contact: Apoorva Lubin [facility] Mobile Relation: Other Secondary Emergency Contact: Jovana [...] Diagnosis Code Cellulitis L03.90 Chronic osteomyelitis ([facility]) M86.60 Uncontrolled type 2 diabetes mellitus with complication ([facility]) E11.8, E11.65 Type 2 diabetes mellitus with hyperglycemia, with long-term current use of insulin ([facility]) E11.65, Z79.4 Class 3 severe obesity due to excess calories with serious comorbidity and body mass index (BMI) of50.0 to 59.9 in adult ([facility]) E66.01, Z68.43 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 ([facility]) E11.51 Cellulitis and abscess of lower extremity L03.119, L02.419 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 Chronic acquired lymphedema I89.0 Left leg cellulitis L03.116 Class 3 severe obesity due to excess calories with serious comorbidity and body mass index (BMI) of60.0 to 69.9 in adult ([facility]) E66.01, Z68.44 Post-menopausal bleeding N95.0 Hyperglycemia R73.9 Diabetic foot infection ([facility]) E11.628, L08.9 Isolation/Infection: Isolation Contact Patient Infection [...] (171.5 kg) Mental Status: {IP PT MENTAL STATUS:07700} IV Access: {[facility] [place]:[id number]} Nursing Mobility/ADLs: Walking Assisted Transfer Assisted Bathing Assisted Dressing Assisted Toileting Assisted Feeding Assisted Order Analyst Independent Med Delivery whole Wound Care Documentation [...] (for information only, NOT a DME order): {EQUIPMENT:[id number]} Other Treatments: Patient's personal belongings (please select all that are sent with patient): None RN SIGNATURE: MANAGEMENT/SOCIAL WORK SECTION Inpatient Status Date: 06/14/19 Readmission Risk Assessment Score: Readmission Risk Risk of Unplanned Readmission: 28 Discharging to Facility/ Agency Name: [facility] Address:[place] [address] Dialysis Facility (if applicable) Name: Address: Dialysis Schedule: Phone: Fax: Industrial Gas Production Operator/Body Piercer signature: {Esignature:[id number]} ICIAN SECTION Prognosis: Good Condition at Discharge: [...] Additional Instructions* Jarek Katz MD - 06/16/2019 Erjcm-xbx-Hney Leg Amputation: What to Expect at Home Your Recovery An gltyp-xsm-jjlg amputation is surgery to remove your leg above the knee. Your doctor removed the leg while keeping as much healthy bone, skin, blood vessel, and nerve tissue as possible. After an hooaf-mni-pcnq leg amputation, you will probably have bandages, [...] your doctor if you can take an qfuo-weg-yayxnme medicine. If you think your pain medicine [...] Where can you learn more? Go to [email or web address] and sign in to your [employer] account. Enter K761 in the Search Health Information box to learn more about Rkimu-jkg-Zbwd Leg Amputation: What to Expect at Home. If you do not have an account, please click on the "Sign Up Now" link. Current as of: July 28, 2018 Content Version: [id number] [employer]. Care instructions adapted under license by [employer]. If youhave questions about a medical condition or this instruction, always ask your healthcare professional. [employer] disclaims any warranty or liability for your [...] attempt with 22 gauge needle at [facility]. Patient tolerated well, site benign. documented in this encounter* Valeria Calzada RN - 09/30/2020 6:43 PM EST Called report to Ninfa GUILLORY at [place]. supervisor adult education is scheduled for 7:30PM Valeria Calzada * [...] Consult: Joann PCP: Jared Guzman MD Outpt Fur Storage Clerk: yes, JEROME Lee/Kedar ASSESSMENT: T2DM uncontrolled with [...] standpoint: Yes Home Going Endocrine Rx Recommendations-- [id number] 160-110-150 units TID before meals Outpt Follow [...] units TID AC meals 08/28/20 Carito Thacker, PRODUCT DISTRIBUTION SPECIALIST - ARCHITECTURAL DRAFTSPERSON acetaminophen (TYLENOL) 325 MG tablet Take 650 [...] AM EST Physical Therapy Facility/Department: [facility] TELEMETRY Daily Treatment Note NAME: Will Jacinto : 1965 Date of Service: 09/30/2020 Chart review completed. Pt declined therapy this day. Pt stated that he wasn't felling up it and wanted to rest. This 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 CONSULTANT encouraged pt to participate, pt still declined. I will re-attempt as schedule permits. Juwan Canales PTA * Valeria Calzada RN - 09/30/2020 9:39 AM EST 09/30/20 9:30 AM [phone] From: Valeria Calzada RE: WILL ISSAELVIA 1965 Location: [facility] RM: [id number] is NPO for a procedure today. BS is 257, he is supposed to get 145u of the U-500. Would you likeme to still give? or hold with NPO status? Thank you Callback Required: NO CALLBACK REQ 2 [facility] ROUTINE Read 9:36 AM 09/30/20 9:37 [...] (BMI) of50.0 to 59.9 in adult ([facility]) 09/27/2020 Yes Small vessel arterial disease due [...] (BMI) of50.0 to 59.9 in adult ([facility]) Resolved Problems: Ileus (HCC)). Plan: Start/continue incentive [...] PATIENT NAME: Will Jacinto DATE: 09/30/2020 PAGER: [phone] * Jagdeep Grace MD - 09/29/2020 1:00 PM EST Progress Note Date:09/29/2020 Room:[address] [place] [address] Patient Name:Will Jacinto Date of :1965 Age:54 [...] PATIENT NAME: Will Jacinto DATE: 09/29/2020 PAGER: [phone] * Deborah Jha OTA - 09/29/2020 12:33 PM EST Occupational Therapy Facility/Department: [facility] TELEMETRY Daily Treatment Note NAME: Will [...] The primary encounter diagnosis was Ileus ([facility]). Diagnoses of Nausea and vomiting, intractability of vomiting not specified, unspecified vomiting type and Generalized abdominalpain were also pertinent to this visit. has a past medical history of Abnormal uterine bleeding (AUB), Above knee amputation of right lowerextremity ([facility]), Bipolar 1 disorder ([facility]), Blood circulation, collateral, Cellulitis, Depression, Diabetes mellitus ([facility]), Disease of blood and blood forming organ, Endometrial hyperplasia, Hx of blood clots, Hyperlipidemia, Hypertension, Lymphedema, MDRO (multiple drug resistant organisms) resistance, Morbidly obese ([facility]), Osteomyelitis ([facility]), Osteomyelitis ([facility]), Schizophrenia ([facility]), Sleep apnea, and Venous insufficiency. has a past surgical history that includes Abscess Drainage (Right, 09/09/2018); [place] tooth extraction; Dilation and curettage of uterus [...] injection 10 mL 10 mL Intravenous PRN Nbail M Esterle, DO acetaminophen (TYLENOL) tablet 650 [...] : 1965 AGE: 54 y.o. Room/Bed: [address] [place] [address] Admission Date: 09/17/2020 7:46 PM Consult Date: 09/18/20 Visit Date: 09/29/2020 Reason for Endocrine Consult: DM mgmt Provider/Team Requesting Consult: Joann PCP: Jared Guzman MD Outpt Fur Storage Clerk: yes, SHMG Lee/Kedar ASSESSMENT: T2DM uncontrolled with [...] 60 gram limit no juice w/ trays Fur Storage Clerk On-Call: AGAPITO Preferred Method of Communication/Reaching: Arrogene. The above physician should be paged w/ questions/concerns about items being managed by Endocrinology Team. If there are any questions or concerns related to the info in this progress note please page the oncall senior clinical consultant directly. On-Call information can be found in the [facility] Online Directory. We can also be reached by [employer] communication system. We appreciate the opportunity to participate in this pt's ongoing medical care. ANTICIPATED ENDOCRINE HOME GOING RECOMMENDATIONS: Optimized for Discharge from Endocrine standpoint: Yes Home Going Endocrine Rx Recommendations-- Current hosp [id number] insulin doses. Outpt Follow Up-- As scheduled. [...] units TID AC meals 08/28/20 Carito Thacker PRODUCT DISTRIBUTION SPECIALIST - ARCHITECTURAL DRAFTSPERSON acetaminophen (TYLENOL) 325 MG tablet Take 650 [...] mg by mouth 2 times daily 07/26/19 Justni Walsh MD ferrous sulfate 325 (65 Fe) [...] Ordering Physician DO HILL LISA Accession Number [id number] CPT4 Codes 83379 () Reason For Exam ileus Report Clinical [...] w/ IV Contrast (IV Onl Ordering Physician [id number] SHEIKH Accession Number [id number] CPT4 Codes 26633 (CT Abdomen/Pelvis w/ IV Contrast (IV Onl), Q9967 (CT ISOVUE 370MG/ML&[id number]&ML&1) Reason For Exam abd pain/tenderness Report CT [...] with long-term current use of insulin ([facility]) 09/27/2020Yes Class 3 severe obesity due to excess calories with serious comorbidity and body mass index (BMI) of50.0 to 59.9 in adult ([facility]) 09/27/2020 Yes 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 Plan: Start/continue incentive [...] PATIENT NAME: Will Jacinto DATE: 09/28/2020 PAGER: [phone] * Chris Muniz MD - 09/28/2020 9:18 [...] kg/m Physical Exam Not indistress Lungs clear [id number] abodmen obese non tender CBC: Recent Labs [...] Consult: Joann PCP: Jared Guzman MD Outpt Fur Storage Clerk: yes, JEROME Lee/Kedar ASSESSMENT: T2DM uncontrolled with [...] 60 gram limit no juice w/ trays Fur Storage Clerk On-Call: AGAPITO Preferred Method of Communication/Reaching: [employer]erve. The above physician should be paged w/ questions/concerns about items being managed by Endocrinology Team. If there are any questions or concerns related to the info in this progress note please page the oncall senior clinical consultant directly. On-Call information can be found in the [facility] Online Directory. We can also be reached by [employer] communication system. We appreciate the opportunity to participate in this pt's ongoing medical care. ANTICIPATED ENDOCRINE HOME GOING RECOMMENDATIONS: Optimized for Discharge from Endocrine standpoint: Yes Home Going Endocrine Rx Recommendations-- Current hosp [id number] insulin doses. Outpt Follow Up-- As scheduled. [...] AC meals 08/28/20 Carito Thacker APRN - ARCHITECTURAL DRAFTSPERSON acetaminophen (TYLENOL) 325 MG tablet Take 650 [...] Ordering Physician DO HILL LISA Accession Number [id number] CPT4 Codes 50050 () Reason For Exam ileus Report Clinical [...] Onl Ordering Physician ART OWEN Accession Number [id number] CPT4 Codes 54509 (CT Abdomen/Pelvis w/ IV Contrast (IV Onl), Q9967 (CT ISOVUE 370MG/ML&[id number]&ML&1) Reason For Exam abd pain/tenderness Report CT [...] this note. * Lucia Michelle, 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 CONSULTANT - 09/27/2020 3:13 PM EST Physical Therapy Facility/Department: [facility] TELEMETRY Daily Treatment Note NAME: Will Jacnito : 1965 Date of Service: 09/27/2020 Discharge [...] history that includes Abscess Drainage (Right, 09/09/2018); [place] tooth extraction; Dilation and curettage of uterus [...] * ART STAPLETON, MDProgress Note Date:09/27/2020 Room:[address] [place] [address] Patient Name:Will Jacinto Date of :1965 Age:54 [...] Consult: Joann PCP: Jared Guzman MD Outpt Fur Storage Clerk: yes, JEROME Lee/Kedar ASSESSMENT: T2DM uncontrolled with [...] Home Going Endocrine Rx Recommendations-- Current hosp [id number] insulin doses Outpt Follow Up-- As scheduled [...] data in the 24 hours ending 09/27/20 4756 Diet: Dietary Nutrition Supplements: Low Calorie High [...] AC meals 08/28/20 Carito Thacker APRN - ARCHITECTURAL DRAFTSPERSON acetaminophen (TYLENOL) 325 MG tablet Take 650 [...] : GIB No Renal : CKD No ENGINEER EXHAUSTER : CVA/TIA No Musculoskeletal system : DJD [...] Accumulation: 7 - Moderate to Severe Extremities Tire Shop Manager Strength: Not Performed Estimated Daily Nutrient Needs: Energy (kcal): 2068-2664; Weight Used for Energy Requirements: Adjusted(IBW) Protein [...] Usual Body Weight: 340 lb (154.2 kg)(01/02/20) [place] Body Weight: 130 lbs; % [place] Body Weight 263.8 % BMI: 55.4 Adjusted [...] Discharge Planning: Too soon to determine Contact: *[id number] * Chris Muniz MD - 09/26/2020 11:24 [...] : GIB No Renal : CKD No ENGINEER EXHAUSTER : CVA/TIA No Musculoskeletal system : DJD [...] Consult: Joann PCP: Jared Guzman MD Outpt Fur Storage Clerk: yes, JEROME Lee/Kedar ASSESSMENT: T2DM uncontrolled with [...] Home Going Endocrine Rx Recommendations-- Current hosp [id number] insulin doses Outpt Follow Up-- As scheduled [...] units TID AC meals 08/28/20 Carito Thacker, PRODUCT DISTRIBUTION SPECIALIST - ARCHITECTURAL DRAFTSPERSON acetaminophen (TYLENOL) 325 MG tablet Take 650 [...] : GIB No Renal : CKD No ENGINEER EXHAUSTER : CVA/TIA No Musculoskeletal system : DJD [...] Consult: Joann PCP: Jared Guzman MD Outpt Fur Storage Clerk: yes, JEROME Lee/Kedar ASSESSMENT: T2DM uncontrolled with [...] Home Going Endocrine Rx Recommendations-- Current hosp [id number] insulin doses Outpt Follow Up-- As scheduled [...] units TID AC meals 08/28/20 Carito Thacker, PRODUCT DISTRIBUTION SPECIALIST - ARCHITECTURAL DRAFTSPERSON acetaminophen (TYLENOL) 325 MG tablet Take 650 [...] * ART STAPLETON, MDProgress Note Date:09/23/2020 Room:[address] [place] [address] Patient Name:Will Jacinto Date of :1965 Age:54 [...] Physician MD DAVID RICHARD H Accession Number [id number] CPT4 Codes 46341 () Reason For Exam ileus, improving Report [...] Physician MD DAVID RICHARD H Accession Number [id number] CPT4 Codes 90760 () Reason For Exam ileus Report ABDOMEN: [...] Accumulation: 7 - Moderate to Severe Extremities Tire Shop Manager Strength: Not Performed Estimated Daily Nutrient Needs: Energy (kcal): 5419-6771; Weight Used for Energy Requirements: Adjusted(IBW) Protein [...] Usual Body Weight: 340 lb (154.2 kg)(01/02/20) [place] Body Weight: 130 lbs; % [place] Body Weight 263.8 % BMI: 55.4 Adjusted [...] Discharge Planning: Too soon to determine Contact: *[id number] * Gayle Hanna MD - 09/23/2020 11:12 [...] 11:12 AM EST Physical Therapy Facility/Department: [facility] TELEMETRY Daily Treatment Note NAME: Will [...] (HCC), Osteomyelitis (HCC), Osteomyelitis (HCC), Schizophrenia ([facility]), Sleep apnea, and Venous insufficiency. has a past surgical history that includes Abscess Drainage (Right, 09/09/2018); [place] tooth extraction; Dilation and curettage of uterus [...] 10:00 AM EST Occupational Therapy Facility/Department: [facility] TELEMETRY Daily Treatment Note NAME: Will [...] deficits and progress toward safe dc back [facility] facility. Prognosis: Fair Decision Making: Medium [...] drug resistant organisms) resistance, Morbidly obese ([facility]), Osteomyelitis ([facility]), Osteomyelitis (HCC), Schizophrenia ([facility]), Sleep apnea, and Venous insufficiency. has a past surgical history that includes Abscess Drainage (Right, 09/09/2018); [place] tooth extraction; Dilation and curettage of uterus [...] Consult: Joann PCP: Jared Guzman MD Outpt Fur Storage Clerk: yes, JEROME Lee/Kedar ASSESSMENT: T2DM uncontrolled with [...] 60 gram limit no juice w/ trays Fur Storage Clerk On-Call: AGAPITO Preferred Method of Communication/Reaching: Arrogene. The above physician should be paged w/ questions/concerns about items being managed by Endocrinology Team. If there are any questions or concerns related to the info in this progress note please page the oncall senior clinical consultant directly. On-Call information can be found in the [facility] Online Directory. We can also be reached by Arrogene communication system. We appreciate the opportunity to participate in this pt's ongoing medical care. ANTICIPATED ENDOCRINE HOME GOING RECOMMENDATIONS: Optimized for Discharge from Endocrine standpoint: No Home Going Endocrine Rx Recommendations-- Current hosp [id number] insulin doses. Outpt Follow Up-- As scheduled. [...] AC meals 08/28/20 Carito Thacker APRN - ARCHITECTURAL DRAFTSPERSON acetaminophen (TYLENOL) 325 MG tablet Take 650 [...] Ordering Physician DO HILL LISA Accession Number [id number] CPT4 Codes 69589 () Reason For Exam ileus Report Clinical [...] w/ IV Contrast (IV Onl Ordering Physician [id number] SHEIKH Accession Number [id number] CPT4 Codes 94678 (CT Abdomen/Pelvis w/ IV Contrast (IV Onl), Q9967 (CT ISOVUE 370MG/ML&[id number]&ML&1) Reason For Exam abd pain/tenderness Report CT [...] to discontinue it. I spoke with the renewable energy engineer and re-invited him to continue to [...] Consult: Joann PCP: Jared Guzman MD Outpt Fur Storage Clerk: yes, JEROME Lee/Kedar ASSESSMENT: T2DM uncontrolled with [...] 60 gram limit no juice w/ trays Fur Storage Clerk On-Call: AGAPITO Preferred Method of Communication/Reaching: Arrogene. The above physician should be paged w/ questions/concerns about items being managed by Endocrinology Team. If there are any questions or concerns related to the info in this CONSULTATION please page the communications engineer senior clinical consultant directly. On-Call information can be found in the [facility] Online Directory. We can also be reached by Arrogene communication system. We appreciate the opportunity to participate in this pt's ongoing medical care. ANTICIPATED ENDOCRINE HOME GOING RECOMMENDATIONS: Optimized for Discharge from Endocrine standpoint: No Home Going Endocrine Rx Recommendations-- Current hosp [id number] insulin doses. Outpt Follow Up-- As scheduled. [...] units TID AC meals 08/28/20 Carito Thacker, PRODUCT DISTRIBUTION SPECIALIST - ARCHITECTURAL DRAFTSPERSON acetaminophen (TYLENOL) 325 MG tablet Take 650 [...] Ordering Physician DO HILL LISA Accession Number [id number] CPT4 Codes 99761 () Reason For Exam ileus Report Clinical [...] Onl Ordering Physician ART OWEN Accession Number [id number] CPT4 Codes 31538 (CT Abdomen/Pelvis w/ IV Contrast (IV Onl), Q9967 (CT ISOVUE 370MG/ML&[id number]&ML&1) Reason For Exam abd pain/tenderness Report CT [...] this note. * Asuncion Valencia, JEREMY - ARCHITECTURAL DRAFTSPERSON - 09/22/2020 8:31 AM EST GENERAL SURGERY [...] willingness to proceed with plan. Asuncion Valencia [facility] Personal Pager [phone] [facility] Surgery Pager [phone] during hours 7:30a-4:30p Wednesday-Wednesday After hours, please contact physician communications engineer. Associated attestation - Trae Pike MD - 09/22/2020 5:39 PM EST [facility] - Surgery [facility] Physicians Surgery Patient Name: Will Jacinto [...] Jacinto : 1965 AGE: 54 y.o. Room/Bed: [address] [place] [address] Admission Date: 09/17/2020 7:46 PM Consult Date: 09/18/20 Visit Date: 09/21/2020 Reason for Endocrine Consult: DM mgmt Provider/Team Requesting Consult: Joann PCP: Jared Guzman MD Outpt Fur Storage Clerk: yes, JEROME Lee/Kedar ASSESSMENT: T2DM uncontrolled with [...] 60 gram limit no juice w/ trays Fur Storage Clerk On-Call: AGAPITO Preferred Method of Communication/Reaching: PerfectServe. The above physician should be paged w/ questions/concerns about items being managed by Endocrinology Team. If there are any questions or concerns related to the info in this CONSULTATION please page the communications engineer senior clinical consultant directly. On-Call information can be found in the [facility] Online Directory. We can also be reached by Azubu system. We appreciate the opportunity to participate [...] units TID AC meals 08/28/20 Carito Thacker PRODUCT DISTRIBUTION SPECIALIST - ARCHITECTURAL DRAFTSPERSON acetaminophen (TYLENOL) 325 MG tablet Take 650 [...] Ordering Physician DO HILL LISA Accession Number [id number] CPT4 Codes 09076 () Reason For Exam ileus Report Clinical [...] Onl Ordering Physician ART OWEN Accession Number [id number] CPT4 Codes 53877 (CT Abdomen/Pelvis w/ IV Contrast (IV Onl), Q9967 (CT ISOVUE 370MG/ML&[id number]&ML&1) Reason For Exam abd pain/tenderness Report CT [...] on the date of this note. * Atr Stapleton MD - 09/20/2020 2:13 PM EST [...] problems. * ART STAPLETON, MDProgress Note Date:09/20/2020 Room:[address] [place] [address] Patient Name:Will Jacinto Date of :1965 Age:54 [...] Ordering Physician DO HILL LISA Accession Number [id number] CPT4 Codes 84735 () Reason For Exam ileus Report EXAMINATION: [...] Physician MD JOANN, KYLAH Garcia Accession Number [id number] CPT4 Codes 39237 () Reason For Exam ileus fu Report [...] 2:09 PM EST Occupational Therapy Facility/Department: [facility] TELEMETRY Daily Treatment Note NAME: Will Jacinto : 1965 Date of Service: 09/20/2020 Assessment REQUIRES OT FOLLOW UP: Yes Subjective General Chart Reviewed: Yes Subjective Subjective: Eyes half closed and minimal eye contact. States "My stomach just doesn't feel good today". Pt rubbing stomach in the bed. General Comment Comments: Declines therapy this date. Will attempt to see again. Marcela Negron EXERCISE PHYSIOLOGIST CERTIFIED * Juwan Canales PTA - 09/20/2020 10:57 AM EST Physical Therapy Facility/Department: [facility] TELEMETRY Daily Treatment Note NAME: Will [...] Consult: Joann PCP: Jared Guzman MD Outpt Fur Storage Clerk: yes, [facility] Jesus/Kedar ASSESSMENT: T2DM uncontrolled with hyperglycemia Insulin [...] 60 gram limit no juice w/ trays Fur Storage Clerk On-Call: AGAPITO Preferred Method of Communication/Reaching: Arrogene. The above physician should be paged w/ questions/concerns about items being managed by Endocrinology Team. If there are any questions or concerns related to the info in this CONSULTATION please page the communications engineer senior clinical consultant directly. On-Call information can be found in the [facility] Online Directory. We can also be reached by Arrogene communication system. We appreciate the opportunity to [...] units TID AC meals 08/28/20 Carito Thacker PRODUCT DISTRIBUTION SPECIALIST - ARCHITECTURAL DRAFTSPERSON acetaminophen (TYLENOL) 325 MG tablet Take 650 [...] Ordering Physician DO HILL LISA Accession Number [id number] CPT4 Codes 40068 () Reason For Exam ileus Report Clinical [...] radiographic abnormality. Report Dictated on Workstation: [id number] --- Final --- Dictating Physician: MD BARRAGAN HARLAN Signed Date and Time: 09/18/20209:48 am Signed by: MD BARRAGAN HARLAN Transcribed Date and Time: 09/18/2020 10:25 Ct Abdomen Pelvis W Contrast Result Date: 09/17/2020 Patient Name: WILL JACINTO ---CT--- Exam Date/Time 09/17/202022:15:[address] Abdomen/Pelvis w/ IV Contrast (IV Onl Ordering Physician ART OWEN Accession Number [id number] CPT4 Codes 82213 (CT Abdomen/Pelvis w/ IV Contrast (IV Onl), Q9967 (CT ISOVUE 370MG/ML&[id number]&ML&1) Reason For Exam abd pain/tenderness Report CT [...] on the date of this note. * Nbail Hill DO - 09/19/2020 7:51 PM EST [...] For additional Questions please call Endoscopy at [phone]. Thank You! * Asuncion Garibay DO - 09/19/2020 8:42 AM EST Department of Internal Medicine Division of Endocrinology, Diabetes, & Metabolism Endocrinology Progress Note Patient Name: Will Jacinto : 1965 AGE: 54 y.o. Room/Bed: 268/2681 Admission Date: 09/17/2020 7:46 PM Consult Date: 09/18/20 Visit Date: 09/18/2020 Reason for Endocrine Consult: DM mgmt Provider/Team Requesting Consult: Joann PCP: Jared Guzman MD Outpt Fur Storage Clerk: yes, JEROME Lee/Kedar ASSESSMENT: T2DM uncontrolled with [...] 60 gram limit no juice w/ trays Fur Storage Clerk On-Call: AGAPITO Preferred Method of Communication/Reaching: Arrogene. The above physician should be paged w/ questions/concerns about items being managed by Endocrinology Team. If there are any questions or concerns related to the info in this CONSULTATION please page the communications engineer senior clinical consultant directly. On-Call information can be found in the [facility] Online Directory. We can also be reached by Arrogene communication system. We appreciate the opportunity to [...] units TID AC meals 08/28/20 Carito Thacker, PRODUCT DISTRIBUTION SPECIALIST - ARCHITECTURAL DRAFTSPERSON acetaminophen (TYLENOL) 325 MG tablet Take 650 [...] Ordering Physician DO HILL LISA Accession Number [id number] CPT4 Codes 67889 () Reason For Exam ileus Report Clinical [...] radiographic abnormality. Report Dictated on Workstation: [id number] --- Final --- Dictating Physician: MD BARRAGAN HARLAN Signed Date and Time: 09/18/20209:48 am Signed by: MD BARRAGAN HARLAN Transcribed Date and Time: 09/18/2020 10:25 Ct Abdomen Pelvis W Contrast Result Date: 09/17/2020 Patient Name: WILL JACINTO ---CT--- Exam Date/Time 09/17/202022:15:[address] Abdomen/Pelvis w/ IV Contrast (IV Onl Ordering Physician ART OWEN Accession Number [id number] CPT4 Codes 41342 (CT Abdomen/Pelvis w/ IV Contrast (IV Onl), Q9967 (CT ISOVUE 370MG/ML&[id number]&ML&1) Reason For Exam abd pain/tenderness Report CT [...] schizophrenia, female identifying as male. Admitted from [place] w/ abd pain/n/v concerning for ileus. Pt [...] loss Fluid Accumulation: 1 - Mild Extremities Tire Shop Manager Strength: Not Performed Estimated Daily Nutrient Needs: Energy (kcal): 4716-6549; Weight Used for Energy Requirements: Adjusted(IBW) Protein (g): 53-64; Weight Used for Protein Requirements: Adjusted(IBW) Fluid (ml/day): per MD; Nutrition Related Findings: +BS; abd round, rotund. +1 pitting edema LLE, R AKA. Tamara 14. [id number], ALT and AST elevated Wounds: None Current Nutrition Therapies: DIET CLEAR LIQUID; Anthropometric Measures: Height: 5' 6" (167.6 cm) Current Body Weight: 360 lb (163.3 kg) Admission Body Weight: 360 lb (163.3 kg) [place] Body Weight: 130 lbs; % [place] Body Weight 276.9 % BMI: 58.1 Adjusted [...] Discharge Planning: Too soon to determine Contact: [id number] * Carito Ruelas, PT - 09/18/2020 10:15 AM EST Physical Therapy Facility/Department: [facility] TELEMETRY Initial Assessment NAME: Will [...] history that includes Abscess Drainage (Right, 09/09/2018); [place] tooth extraction; Dilation and curettage of uterus [...] Lives With: Other (comment) Type of Home: Facility([facility]) Home Layout: One level Bathroom Shower/Tub: Shower chair with back, Walk-in shower Bathroom Toilet: Handicap height Bathroom Equipment: Grab bars in shower, Grab bars around toilet, Shower chair Bathroom Accessibility: Wheelchair accessible Home Equipment: Rolling walker, Wheelchair-manual Receives Help From: international flight attendant ADL Assistance: Needs assistance(assist for toileting and all ADLs (A x 1)) Homemaking Responsibilities: No Ambulation Assistance: Needs assistance(transfers only, wc mob) Transfer Assistance: Needs assistance(at [facility] to w/c) Active Brine Mixer Operator: No Patient's Brine Mixer Operator Info: facility, [facility] transport Additional Comments: pt states staff assist [...] history that includes Abscess Drainage (Right, 09/09/2018); [place] tooth extraction; Dilation and curettage of uterus [...] Lives With: Other (comment) Type of Home: Facility([facility]) Home Layout: One level Bathroom Shower/Tub: Shower chair with back, Walk-in shower Bathroom Toilet: Handicap height Bathroom Equipment: Grab bars in shower, Grab bars around toilet, Shower chair Bathroom Accessibility: Wheelchair accessible Home Equipment: Rolling walker, Wheelchair-manual Receives Help From: international flight attendant ADL Assistance: Needs assistance(assist for toileting and all ADLs (A x 1)) Homemaking Responsibilities: No Ambulation Assistance: Needs assistance(transfers only, wc mob) Transfer Assistance: Needs assistance(at [facility] to w/c) Active Brine Mixer Operator: No Patient's Brine Mixer Operator Info: facility, [facility] transport Additional Comments: pt states staff assist with all ADLs. Pt transfers at [facility] to w/c then transfers at [facility] to commode with staff to assist with [...] sit: Stand by assistance Transfer Comments: at [facility] with bed height slightly elevated Vision - [...] CMS 0-100% Score: 53.32 (09/18/20952) ADL Inpatient [facility] G-Code Modifier : CK (09/18/20952) [...] : GIB No Renal : CKD No ENGINEER EXHAUSTER : CVA/TIA No Musculoskeletal system : DJD [...] meds Priyank Rios MD * Ema Escobedo, PRODUCT DISTRIBUTION SPECIALIST - ENGINEER EXHAUSTER - 11/28/2020 10:52 AM EST Department of Internal Medicine Division of Endocrinology, Diabetes, & Metabolism Endocrinology Progress Note Patient Name: Will Jacinto : 1965 AGE: 55 y.o. Room/Bed: 171/375525 Admission Date: 11/22/2020 5:55 PM Consult Date: 11/24/20 Visit Date: 11/28/2020 Reason for Endocrine Consult: "out of control diabetic" Provider/Team Requesting Consult: Joann PCP: Jared Guzman MD Outpt Fur Storage Clerk: yes, [facility] ASSESSMENT: T2DM uncontrolled w/ hyperglycemia, on long-term [...] doses (160-110-150 units TID) Outpt Follow Up-- [facility] Dr. Lee Appointment request sent to Endo office Staff: No, has appt in January SUBJECTIVE/HPI: CHIEF COMPLAINT: Abdominal Pain Type of DM: 2 Onset of DM: unclear Home DM Medication Regimen: U500 pen 160/110/150 TID; given via ([facility]) DM control (last A1c/glucose data): [...] am. Plan for d/c to [facility] later today. ROS negative except for those [...] data in the 24 hours ending 11/28/20 1040 Diet: Dietary Nutrition Supplements: Diabetic Oral Supplement [...] as needed for Constipation 11/25/20 Yes Art Stalpeton MD metoclopramide (REGLAN) 5 MG/ML injection Infuse [...] Radiology ACCESSION EXAM DATE/TIME PROCEDURE ORDERING PROVIDER [id number] 11/22/2020 18:30 EST CR Chest Portable [id number] NOLASCO CPT code 88492 Reason For Exam (CR Chest Portable) SOB [...] Contrast Result Date: 11/22/2020 Patient Name: WILL JACINOT Computed Tomography ACCESSION EXAM DATE/TIME PROCEDURE ORDERING PROVIDER [id number] 11/22/2020 19:[address] Abdomen/Pelvis w/ IV [id number] -JOEL NELSON Contrast (IV Onl CPT code 00331 Q9967 Reason For Exam (CT Abdomen/Pelvis w/ [...] radiology, and other reports. 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 Pt reports his wt fluctuates frequently, stating UBW 350#, and pt last weighed 353# in nursing facility within past month Malnutrition Assessment: Malnutrition Status: Insufficient data Estimated Daily Nutrient Needs: Energy (kcal): 3424-6704; Weight Used for Energy Requirements: Adjusted(IBW) Protein [...] however 330# per Epic 09/17, 340# 01/02) [place] Body Weight: 130 lbs; % [place] Body Weight 243.8 % BMI: 51.2 Adjusted [...] Discharge Planning: Too soon to determine Contact: [id number] * Ema Escobedo, PRODUCT DISTRIBUTION SPECIALIST - ENGINEER EXHAUSTER - 11/27/2020 1:41 PM EST Department of Internal Medicine Division of Endocrinology, Diabetes, & Metabolism Endocrinology Progress Note Patient Name: Will Jacinto : 1965 AGE: 55 y.o. Room/Bed: [facility]/938076 Admission Date: 11/22/2020 5:55 PM Consult Date: 11/24/20 Visit Date: 11/27/2020 Reason for Endocrine Consult: "out of control diabetic" Provider/Team Requesting Consult: Joann PCP: Jared Guzman MD Outpt Fur Storage Clerk: yes, [facility] ASSESSMENT: T2DM uncontrolled w/ hyperglycemia, on long-term [...] doses (160-110-150 units TID) Outpt Follow Up-- [facility] Dr. Lee Appointment request sent to Endo office Staff: No, has appt in January SUBJECTIVE/HPI: CHIEF COMPLAINT: Abdominal Pain Type of DM: 2 Onset of DM: unclear Home DM Medication Regimen: U500 pen 160/110/150 TID; given via ([facility]) DM control (last A1c/glucose data): [...] currently. Plan for d/c to [facility] once stable. ROS negative except for those [...] Radiology ACCESSION EXAM DATE/TIME PROCEDURE ORDERING PROVIDER [id number] 11/22/2020 18:30 EST CR Chest Portable [id number] NOLASCO CPT code 99913 Reason For Exam (CR Chest Portable) SOB [...] Tomography ACCESSION EXAM DATE/TIME PROCEDURE ORDERING PROVIDER [id number] 11/22/2020 19:[address] Abdomen/Pelvis w/ IV [id number] FARMER Contrast (IV Onl CPT code 69607 Q9967 Reason For Exam (CT Abdomen/Pelvis w/ [...] radiology, and other reports. I reviewed the THREAD SPINNER/resident's note and agree with the documented findings [...] outpatient - plan to DC back to [facility] * Morenita Steele V., PT - 11/27/2020 9:48 AM EST Physical Therapy Facility/Department: [facility] Initial Assessment NAME: Will Jacinto [...] history that includes Abscess Drainage (Right, 09/09/2018); [place] tooth extraction; Dilation and curettage of uterus [...] Home Equipment: Wheelchair-electric Receives Help From: Family, international flight attendant ADL Assistance: Needs assistance Homemaking Assistance: Needs assistance Homemaking Responsibilities: No Active Brine Mixer Operator: No Patient's Brine Mixer Operator Info: facility, [facility] transport Additional Comments: from facility, assist with ADLs, uses electric wheelchair for mobility, stand pivot transfer with [facility] 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 CONSULTANT Cognition Cognition Arousal/Alertness: Appropriate responses to stimuli [...] Plan of Care supervision is transferred to [facility] Physical Therapist. Goals and/or treatment [...] 08/23/2020 No results found for: PHART, PO2ART, [id number] No results for input(s): INR in the [...] had multiple BMs this morning. Seen by Picker Tender and had hysteroscopy today with biopsy done [...] history that includes Abscess Drainage (Right, 09/09/2018); [place] tooth extraction; Dilation and curettage of uterus [...] Home Equipment: Wheelchair-electric Receives Help From: Family, international flight attendant ADL Assistance: Needs assistance Homemaking Assistance: Needs assistance Homemaking Responsibilities: No Active Brine Mixer Operator: No Patient's Brine Mixer Operator Info: facility, [facility] transport Additional Comments: from facility, assist with ADLs, uses electric wheelchair for mobility, stand pivot transfer with [facility] 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 CONSULTANT Objective Vision: Within Functional Limits Hearing: Within [...] Equipment Evaluation, Education, & procurement OutComes Score [facility] Daily Activity Inpatient How much help for putting on and taking off regular lower body clothing?: Total How much help for Bathing?: A Lot How much help for Toileting?: Total How much help for putting on and taking off regular upper body clothing?: A Little How much help for taking care of personal grooming?: None How much help for eating meals?: None [facility] Inpatient Daily Activity Raw Score: 15 [facility] Inpatient ADL T-Scale Score : 34.69 ADL [...] Plan of Care supervision is transferred to [facility] Occupational Therapist. Goals and/or treatment plan was established in collaboration with patient/family/other representatives. Denise Ramon OTR/L * Jagdeep Grace MD - 11/27/2020 8:14 AM EST Progress Note Date:11/27/2020 Room:[address] [place] [address] Patient Name:Will Jacinto Date of :1965 Age:55 [...] Radiology ACCESSION EXAM DATE/TIME PROCEDURE ORDERING PROVIDER [id number] 11/25/2020 15:08 EST CR Abdomen AP Lorenzo STAPLETON MICHAEL CPT code 95779 Reason For Exam (CR Abdomen AP) abd [...] Ultrasound ACCESSION EXAM DATE/TIME PROCEDURE ORDERING PROVIDER [id number] 11/25/2020 10:38 EST US Transvaginal MD DANIELS DIANA CHRISTINE CPT code 34174 Reason For Exam (US Transvaginal) AUB Report [...] PATIENT NAME: Will Jacinto DATE: 11/27/2020 PAGER: [phone] * Ema Escobedo APRN - ENGINEER EXHAUSTER - 11/26/2020 1:45 PM EST Department of Internal Medicine Division of Endocrinology, Diabetes, & Metabolism Endocrinology Progress Note Patient Name: Will Jacinto : 1965 AGE: 55 y.o. Room/Bed: 1714/226812 Admission Date: 11/22/2020 5:55 PM Consult Date: 11/24/20 Visit Date: 11/26/2020 Reason for Endocrine Consult: "out of control diabetic" Provider/Team Requesting Consult: Joann PCP: Jared Guzman MD Outpt Fur Storage Clerk: yes, [facility] ASSESSMENT: T2DM uncontrolled w/ hyperglycemia, on long-term [...] doses (160-110-150 units TID) Outpt Follow Up-- [facility] Dr. Lee Appointment request sent to Endo office Staff: No, has appt in January SUBJECTIVE/HPI: CHIEF COMPLAINT: Abdominal Pain Type of DM: 2 Onset of DM: unclear Home DM Medication Regimen: U500 pen 160/110/150 TID; given via SNF ([facility]) DM control (last A1c/glucose data): Lab Results [...] currently. Plan for d/c to [facility] once stable. ROS negative except for those [...] Radiology ACCESSION EXAM DATE/TIME PROCEDURE ORDERING PROVIDER [id number] 11/22/2020 18:30 EST CR Chest Portable [id number] NELSON CPT code 89221 Reason For Exam (CR Chest Portable) SOB [...] Tomography ACCESSION EXAM DATE/TIME PROCEDURE ORDERING PROVIDER [id number] 11/22/2020 19:[address] Abdomen/Pelvis w/ IV [id number] -JOEL NELSON Contrast (IV Onl CPT code 43099 Q9967 Reason For Exam (CT Abdomen/Pelvis w/ [...] radiology, and other reports. I reviewed the THREAD SPINNER/resident's note and agree with the documented findings [...] outpatient - plan to DC back to [facility] Time spent with patient over 51% total time 15 minutes which includes review of records, counseling, management, and coordination of care as documented in note. * Jagdeep Grace MD - 11/26/2020 12:59 PM EST Progress Note Date:11/26/2020 Room:[address] [place] [address] Patient Name:Will Jacinto Date of :1965 Age:55 [...] Ap View) Result Date: 11/25/2020 Patient Name: IWLL JACINTO Diagnostic Radiology ACCESSION EXAM DATE/TIME PROCEDURE ORDERING PROVIDER [id number] 11/25/2020 15:08 EST CR Abdomen AP Lorenzo STAPLETON MICHAEL CPT code 72747 Reason For Exam (CR Abdomen AP) abd [...] Ultrasound ACCESSION EXAM DATE/TIME PROCEDURE ORDERING PROVIDER [id number] 11/25/2020 10:38 EST US Transvaginal MD DANIELS DIANA CHRISTINE CPT code 05653 Reason For Exam (US Transvaginal) AUB Report [...] PATIENT NAME: Will Jacinto DATE: 11/26/2020 PAGER: [phone] * Leonela Guerrero MD - 11/26/2020 12:35 PM EST Underwent uncomplicated PEUA, D&C, and IUD placement this morning. Megace discontinued as she is now being treated with levonorgestrel IUD. Will await pathology results and arrange outpatient follow up. CLINICAL COUNSELOR ONC will sign off at this time. Please re-consult with further questions or concerns. Discussed w/ Dr. Dejesus. * Michael Martin MD - 11/26/2020 10:24 AM EST Hospitalist Progress Note 11/26/2020 10:25 AM Subjective: Admit Date: 11/22/2020 PCP: Jared Guzman MD Interval History: No overnight issues. DIET FULL LIQUID; No intake/output data recorded. Date 11/26/20 0000 - 11/26/20 2359 Shift 7589-8210 [id number] 24 Hour Total INTAKE P.O.(mL/kg/hr) 100 100 [...] 08/23/2020 No results found for: PHART, PO2ART, DZF5XNT No results for input(s): INR in the [...] Pt was transferred from [facility] Seen by Picker Tender and had hysteroscopy today with biopsy done [...] Jacinto 55 y.o. transgender male admitted to [facility] for abdominal pain and uncontrolled [...] Jacinto 55 y.o. transgender male admitted to [facility] for abdominal pain and uncontrolled [...] determine long-term management Appreciate primary team and senior clinical consultant management of medical comorbidities. Most recent [...] Jacinto : 1965 AGE: 55 y.o. Room/Bed: [facility] Admission Date: 11/22/2020 5:55 PM Consult Date: 11/24/20 Visit Date: 11/25/2020 Reason for Endocrine Consult: "out of control diabetic" Provider/Team Requesting Consult: Joann PCP: Jared Guzman MD Outpt Fur Storage Clerk: yes, [facility] ASSESSMENT: T2DM uncontrolled w/ hyperglycemia, on long-term [...] doses (160-110-150 units TID) Outpt Follow Up-- [facility] Dr. Lee Appointment request sent to Endo office Staff: No, has appt in January SUBJECTIVE/HPI: CHIEF COMPLAINT: Abdominal Pain Type of DM: 2 Onset of DM: unclear Home DM Medication Regimen: U500 pen 160/110/150 TID; given via ([facility]) DM control (last A1c/glucose data): [...] 1 capsule by mouth daily 11/26/20 Yes Atr Stapleton MD miconazole (MICOTIN) 2 % powder [...] Radiology ACCESSION EXAM DATE/TIME PROCEDURE ORDERING PROVIDER [id number] 11/22/2020 18:30 EST CR Chest Portable [id number] NELSON CPT code 26441 Reason For Exam (CR Chest Portable) SOB [...] Tomography ACCESSION EXAM DATE/TIME PROCEDURE ORDERING PROVIDER [id number] 11/22/2020 19:[address] Abdomen/Pelvis w/ IV [id number] -JOEL NELSON Contrast (IV Onl CPT code 24056 Q9967 Reason For Exam (CT Abdomen/Pelvis w/ [...] excessive vaginal clots, patient not seen by CLINICAL COUNSELOR ("due tohigh glucoses"). His glucose came down [...] in transgender male, hx of endometrial hyperplasia, CLINICAL COUNSELOR consulted 5. Morbid obesity, obstructive sleep apnea [...] RN - 11/24/2020 11:43 AM [place] Provider Scribe called me to patients bedside at 11:15am [...] on patient since it was called by pad machine feeder and Dr David will be at bedside [...] - 06/20/2019 10:09 AM EDT Progress Note [facility] Patient - Will Jacinto, Age - 53 y.o. - 1965 Room Number - [id number] [facility] - [id number] Date of Admission - 06/14/2019 1:21 PM [...] EDT ENDOCRINOLOGY PROGRESS NOTE Patient: Will Jacinto Unit/Bed:6125/133595 Date of : 1965 Admit date: 06/14/2019 [...] radiology, and other reports. I reviewed the THREAD SPINNER/resident's note and agree with the documented findings [...] per protocol. Noted likely DC back to [place]. Anticipated homegoing regimen: U-500 160-125-125 TID (given different diet at the [place]). FU with Endocrinology outpatient - pt prefers closer to [place]. Time spent with patient over 51% total time 25 minutes which includes review of records, counseling, management, and coordination of care as documented in note. * Davie Frankel MD - 06/19/2019 11:56 AM EDT Hospitalist Progress Note 06/19/2019 11:57 AM [phone]: Please page me for patient care issues. [phone]: Please page [facility] night Hospitalist for any issues. Subjective: Admit Date: 06/14/2019 PCP: Jared Guzman MD Room#: [id number] Interval History: No new issues per pt [...] Advance Directive: Full Code Discharge planning: to [facility] soon Davie Frankel MD Division of Hospitalist Medicine Inpatient Medical Services * Theo Billingsley MD - 06/19/2019 9:46 AM EDT Progress Note [facility] Patient - Will Jacinto, Age - 53 y.o. - 1965 Room Number - [id number] [facility] - [id number] Date of Admission - 06/14/2019 1:21 PM [...] 2:08 PM * Elle Knutson, 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 CONSULTANT - 06/19/2019 9:24 AM EDT Physical Therapy Facility/Department: [facility] TELEMETRY Daily Treatment Note NAME: Will [...] history that includes Abscess Drainage (Right, 09/09/2018); [place] tooth extraction; Dilation and curettage of uterus [...] Prognosis: Fair Decision Making: Medium Complexity Exam: [facility] OT Education: OT Role;Plan of Care;Transfer Training;Orientation [...] history that includes Abscess Drainage (Right, 09/09/2018); [place] tooth extraction; Dilation and curettage of uterus [...] Lives With: Other (comment) Type of Home: Facility([facility]) Home Layout: One level Home Access: Level entry Bathroom Shower/Tub: Walk-in shower, Shower chair with back Bathroom Toilet: Handicap height Bathroom Equipment: Grab bars in shower, Shower chair Bathroom Accessibility: Wheelchair accessible Home Equipment: 4 wheeled walker, Electric scooter, Wheelchair-manual Receives Help From: international flight attendant ADL Assistance: Needs assistance Homemaking Assistance: (provided by facility) Homemaking Responsibilities: No Ambulation Assistance: Independent(has been using wc 3-4 years) Transfer Assistance: Independent Active Brine Mixer Operator: No Patient's Brine Mixer Operator Info: facility, [facility] transport Mode of Transportation: Bus, Van Education: [...] Plan of Care supervision [facility] Occupational Therapist. Pt requires skill of 2 therapists for safety and positioning. Linda Cameron OTR/L * Kerri Morales MD - 06/19/2019 8:16 AM EDT Department of Internal Medicine Section of Endocrinology Resident Progress Note SUBJECTIVE: Admit date: 06/14/2019 Admitted w/: Right foot wound requiring AKA Original Endocrine Consult date: 06/15/19 OutPt Fur Storage Clerk: None Lab Results Component Value Date LABA1C [...] Range: >60 mL/min 38.9 EGFR IF NonAfrican [place]er Latest Ref Range: >60 mL/min 32.1 Glucose [...] to be determined. Please page the on-call Fur Storage Clerk if there arequestions regarding Endocrine DC recommendations. If there are any questions or concerns related to the info please page the communications engineer senior clinical consultant directly. On-Call information can be found in the [facility] Directory. We appreciate the opportunity to [...] this progress note please page the oncall senior clinical consultant directly. On-Call information can be found in the [facility] Directory. We can also be reached by [employer] system. We appreciate the opportunity to participate [...] EDT Hospitalist Progress Note 06/18/2019 2:31 PM [phone]: Please page me for patient care issues. [phone]: Please page [facility] night Hospitalist for any issues. Subjective: Admit Date: 06/14/2019 PCP: Jared Guzman MD Room#: 6125/[id number] Interval History: Patient seen and examined No [...] of Hospitalist Medicine Inpatient Medical Services PAGER: [phone] * Allison Coleman RD, LD - 06/18/2019 [...] still ordering & consuming meals. 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 CONSULTANT, he was a resident at [facility]. At [facility], he reports receiving ProStat (protein modular) and [...] High Nutrient Needs: Estimated Daily Total Kcal: 7752-9948 (25-30 kcals/kg IBW) Estimated Daily Protein (g): [...] 380 lb (172.4 kg)(Per pt report ) [place] Body Wt: 122 lb (55.3 kg)(Adjusted IBW based on R AKA ), % [place] Body 309% Adjusted Body Wt: , body [...] - 06/18/2019 9:28 AM EDT Progress Note [facility] Patient - Will Jacinto, Age - 53 y.o. - 1965 Room Number - [id number] [id number] Date of Admission - 06/14/2019 1:21 PM [...] Oral Nightly colistimethate (COLY-MYCIN) IVPB 1.69 mg/kg ([place]) Intravenous Q8H insulin regular 0-16 Units Subcutaneous [...] is being seen by wound care at [facility] already. Original Endocrine Consult date: 06/15/19 OutPt Fur Storage Clerk: none Lab Results Component Value Date LABA1C [...] 5 % 100 mL IVPB, 1.69 mg/kg ([place]), Intravenous, Q8H insulin regular (HUMULIN R;NOVOLIN R) [...] to be determined. Please page the on-call Fur Storage Clerk if there arequestions regarding Endocrine DC recommendations. If there are any questions or concerns related to the info in this progress note please page the oncall senior clinical consultant directly. On-Call information can be found in the [facility] Directory. We appreciate the opportunity [...] [facility] TELE[facility] [address] [place] [address] Dept: [phone] Loc: [phone] Orthopedic Progress Note Name: Will Jacinto Date:06/18/2019 [...] an outpatient in 2 weeks please call [phone] to make an appointment Will sign off-=call with questions * Jayson Hawthorne MD - 06/17/2019 2:43 PM EDT Progress Note [facility] Patient - Will Jacinto, Age - 53 y.o. - 1965 Room Number - [id number] N - [id number] Date of Admission - 06/14/2019 1:21 PM [...] Oral Nightly colistimethate (COLY-MYCIN) IVPB 1.69 mg/kg ([place]) Intravenous Q8H insulin regular 0-16 Units Subcutaneous [...] midfoot with some midfoot Jayson Hawthorne MD [facility] 06/17/2019 2:44 PM * Crystal Mullins MD - 06/17/2019 1:15 PM EDT Hospitalist Progress Note 06/17/2019 1:16 PM [phone]: Please page me for patient care issues. [phone]: Please page [facility] night Hospitalist for any issues. Subjective: Admit Date: 06/14/2019 PCP: Jared Guzman MD Room#: [id number] Interval History: Patient seen and examined No [...] Oral Nightly colistimethate (COLY-MYCIN) IVPB 1.69 mg/kg ([place]) Intravenous Q8H insulin regular 0-16 Units Subcutaneous [...] of Hospitalist Medicine Inpatient Medical Services PAGER: [phone] * Sera Kraus, PT - 06/17/2019 10:32 AM EDT Physical Therapy Facility/Department: [facility] TELEMET[facility] Initial Assessment NAME: Will Jacinto [...] history that includes Abscess Drainage (Right, 09/09/2018); [place] tooth extraction; Dilation and curettage of uterus [...] Lives With: Other (comment) Type of Home: Facility([facility]) Home Layout: One level Home Access: Level entry Bathroom Shower/Tub: Walk-in shower, Shower chair with back Bathroom Toilet: Handicap height Bathroom Equipment: Grab bars in shower, Shower chair Bathroom Accessibility: Wheelchair accessible Home Equipment: 4 wheeled walker, Electric scooter, Wheelchair-manual Receives Help From: international flight attendant ADL Assistance: Needs assistance Homemaking Assistance: (provided by facility) Homemaking Responsibilities: No Ambulation Assistance: (non-ambulatory x3-4 years, uses wc) Transfer Assistance: Independent Active Brine Mixer Operator: No Patient's Brine Mixer Operator Info: facility, [facility] transport Mode of Transportation: Bus, Van Education: [...] Plan of Care supervision is transferred to [facility] Department Physical Therapist. Goals and/or treatment [...] is being seen by wound care at [facility] already. Original Endocrine Consult date: 06/15/19 OutPt Fur Storage Clerk: none Lab Results Component Value Date LABA1C [...] 5 % 100 mL IVPB, 1.69 mg/kg ([place]), Intravenous, Q8H insulin regular (HUMULIN R;NOVOLIN R) [...] to be determined. Please page the on-call Fur Storage Clerk if there arequestions regarding Endocrine DC recommendations. If there are any questions or concerns related to the info in this progress note please page the oncall senior clinical consultant directly. On-Call information can be found in the [facility] Directory. We appreciate the opportunity [...] Clemons MD - 06/17/2019 5:29 AM EDT [place] [address] [address] [place] [address] Dept: [phone] Loc: [phone] Orthopedic Progress Note Name: Will Jacinto Date:06/17/2019 [...] an outpatient in 2 weeks please call [phone] to make an appointment * Crystal Mullins MD - 06/16/2019 4:12 PM EDT Hospitalist Progress Note 06/16/2019 4:12 PM [phone]: Please page me for patient care issues. [phone]: Please page [facility] night Hospitalist for any issues. Subjective: Admit Date: 06/14/2019 PCP: Jared Guzman MD Room#: [id number] Interval History: Patient seen and examined No [...] Oral Nightly colistimethate (COLY-MYCIN) IVPB 1.69 mg/kg ([place]) Intravenous Q8H insulin regular 0-16 Units Subcutaneous [...] of Hospitalist Medicine Inpatient Medical Services PAGER: [phone] * Asuncion Garibay DO - 06/16/2019 3:23 PM EDT Department of Internal Medicine Section of Endocrinology Attending Progress Note SUBJECTIVE: Admit date: 06/14/2019 Admitted w/: Chief Complaint Patient presents with Wound Check Patient sent over for evaluation for worsening leg infections, right lower leg is worse. he is being seen by wound care at [facility] already. Original Endocrine Consult date: 06/15/19 OutPt Fur Storage Clerk: none Lab Results Component Value Date LABA1C [...] 5 % 100 mL IVPB, 1.69 mg/kg ([place]), Intravenous, Q8H insulin regular (HUMULIN R;NOVOLIN R) [...] his operating room procedure and returns to [place] is a lot of diet and we [...] to be determined. Please page the on-call Fur Storage Clerk if there arequestions regarding Endocrine DC recommendations. If there are any questions or concerns related to the info in this progress note please page the oncall senior clinical consultant directly. On-Call information can be found in the [facility] Directory. We appreciate the opportunity [...] - 06/16/2019 12:25 PM EDT Progress Note [facility] Patient - Will Jacinto, Age - 53 y.o. - 1965 Room Number - [id number] N [facility] [id number] [id number] Date of Admission - 06/14/2019 1:21 PM [...] Oral Nightly colistimethate (COLY-MYCIN) IVPB 1.69 mg/kg ([place]) Intravenous Q8H insulin regular 0-16 Units Subcutaneous [...] Cartagena MD - 06/16/2019 5:47 AM EDT [facility] TELEMETRY [address] [place] [address] Dept: [phone] Loc: [phone] Orthopedic Progress Note Name: Will Jacinto Date:06/16/2019 [...] Consult endocrine. Obesity: counseled. Debility: Resides at [facility]- will need SNF. Depression: on meds. DVT and GI prophylaxis ANAND LEE MD * Juan Carey MD - 06/15/2019 6:32 AM EDT [facility]LE[facility] [address] [facility] [address] Dept: [phone] Loc: [phone] Orthopedic Progress Note Name: Will Jacinto Date:06/15/2019 [...] Physician Discharge Summary Patient ID: Will Jacinto [id number] 54 y.o. 1965 Admit date: 09/17/2020 Discharge [...] feel he is stable to return to [place] on this current treatment regimen with smaller [...] Normal strength, sensation and reflexes throughout Disposition: Patient Instructions: @MEDDISCHARGE@ Activity: activity as tolerated [...] transgender male, biologically female, presented from his skilled nursing after abdominal pain, out of control glucose readings and reported mental status change. However, EMS in the hospital reported that he was alert and oriented x3, however, he says that recently he has had increasing abdominal distention and distress and he noticed that his glucoses have been harder and harder to control. Pt was admitted to [facility]. Pt had dysfunctinal uterine bleeding and transferred to [facility] for Picker Tender eval. Also had ab pain and found to have ileus. Seen by GI and recommended reglan. Pt had BMs. abd pain better. Advance diet to GI soft Seen by Picker Tender and had hysteroscopy with biopsy done KUB [...] 08/23/2020 No results found for: PHART, PO2ART, JFX2RBE No results for input(s): INR in the [...] Radiology ACCESSION EXAM DATE/TIME PROCEDURE ORDERING PROVIDER [id number] 11/27/2020 08:28 EST CR Abdomen AP MD MARTIN KHALED CPT code 81255 Reason For Exam (CR Abdomen AP) ileus [...] Radiology ACCESSION EXAM DATE/TIME PROCEDURE ORDERING PROVIDER [id number] 11/25/2020 15:08 EST CR Abdomen AP Lorenzo STAPLETON MICHAEL CPT code 86562 Reason For Exam (CR Abdomen AP) abd [...] Radiology ACCESSION EXAM DATE/TIME PROCEDURE ORDERING PROVIDER [id number] 11/22/2020 18:30 EST CR Chest Portable JOEL ZHONG CPT code 77986 Reason For Exam (CR Chest Portable) SOB [...] Tomography ACCESSION EXAM DATE/TIME PROCEDURE ORDERING PROVIDER [id number] 11/22/2020 19:[address] Abdomen/Pelvis w/ IV [id number] -JOEL NELSON Contrast (IV Onl CPT code 22212 Q9967 Reason For Exam (CT Abdomen/Pelvis w/ [...] Ultrasound ACCESSION EXAM DATE/TIME PROCEDURE ORDERING PROVIDER [id number] 11/25/2020 10:38 EST US Transvaginal MD DANIELS DIANA CHRISTINE CPT code 38477 Reason For Exam (US Transvaginal) AUB Report [...] Will Jacinto "Maria Luisa" Home Medication Instructions JORDYN:[id number] Printed on:11/28/20 0911 Medication Information acetaminophen (TYLENOL) [...] g by mouth daily Consults: GI, cardiology, Picker Tender Disposition: Patient discharged in stable condition. Greater [...] TO GIIP CONSULT TO CARDIOLOGYIP CONSULT TO REQUIREMENTS MANAGER Surgeries/procedures Performed: Treatments: Discharge Plan/Disposition: Home Hospital/Incidental [...] U-500 KWIKPEN) 500 UNIT/ML SOPN concentrated injection [id number] units before breakfast, 110 units before lunch, [...] vaginal bleeding--pelvic US shows increased thickening of endometrium--CLINICAL COUNSELOR recommends further acute eval by CLINICAL COUNSELOR ONC--Dr Walsh has seen pt. Previously & recommended hysterectomy, which was postponed at that time due to other medical issues--blood sugar now controlled SIGNIFICANT DIAGNOSTIC STUDIES: Ct---pelvic US CONSULTANTS: CLINICAL COUNSELOR--cardio RECOMMENDED NEXT STEPS: To [facility]--[facility] & Dr Walsh (CLINICAL COUNSELOR ONC) ---resume aspirin when bleeding issues resolved DISCHARGE MEDICATIONS: Will Jacinto "Maria Luisa" Home Medication Instructions JORDYN:[id number] Printed on:11/25/20 1273 Medication Information acetaminophen (TYLENOL) 325 MG tablet [...] Complexity: follow up within 7-14 calendar days (42222) [] Severe Complexity: follow up within 7 calendar days (80063) FOLLOW UP TESTING, PENDING RESULTS OR REFERRALS AT TRANSITIONAL CARE VISIT: [] Yes [] No PENDING STUDIES: No DISPOSITION: Transfer to Acute Care Hospital FACILITY/HOME CARE AGENCY NAME: Follow up with Jared Guzman MD [address] [address] INSTRUCTIONS TO MA/SW DISCHARGE TIME: SIGNED: ART STAPLETON MD 11/25/2020, 1:49 PM documented in this encounter Chief Complaint and Reason for Visit Chief Complaint FDC LAB WOR K Chief Complaint FDC LAB WOR K FDC LAB WORK FDC LAB WORK Chief Complaint FDC LAB WOR K FDC LAB WORK FDC LAB WORK FDC LAB WORK Chief Complaint FDC LABWORK Chief Complaint FDC LABWORK LABWORK Chief Complaint FDC LABWORK LABWORK LABWORK Chief Complaint LABWORK FDC LABWORK FDC LAB WORK Chief Complaint FDC LABWORK FDC LAB WORK FDC LABWORK Chief Complaint FDC LABWORK LABWORK LABWORK LABWORK Chief Complaint LABWORK LABWORK FDC LAB WORK LABWORK FDC LABWORK Chief Complaint FDC LAB WOR K LABWORK FDC LABWORK LABWORK FDC LAB WORK Chief Complaint LABWORK FDC LABWORK LABWORK FDC LAB WORK FDC LAB WORK Chief Complaint FDC LABWORK LABWORK FDC LAB WORK FDC LABWORK FDC LAB WORK Chief Complaint LABWORK FDC LAB WORK FDC LABWORK FDC LAB WORK LABWORK Chief Complaint LABWORK FDC LAB WORK FDC LABWORK FDC LAB WORK FDC LAB WORK LABWORK LABWORK Chief Complaint FDC LAB WOR K FDC LABWORK FDC LAB WORK FDC LAB WORK LABWORK LABWORK LABWORK LABWORK Chief Complaint FDC LAB WOR K FDC LABWORK FDC LAB WORK FDC LAB WORK LABWORK LABWORK LABWORK LABWORK LABWORK Chief Complaint Admit Date LABWORK September 22, 2024 5:00am LABWORK October 30, 2024 5:00am [facility] LAB WORK November 10, 2024 9:46am [facility] LAB WORK November 30, 2024 5:00am [facility] LAB WORK December 05, 2024 4:00am [facility] LAB WORK December 27 5:00am Chief Complaint Admit Date FDC LAB WORK November 10, 2024 9:46am [facility] LAB WORK November 30, 2024 5:00am [facility] LAB WORK December 05, 2024 4:00am [facility] LAB WORK December 27 5:00am [facility] LAB WORK February 07, 2025 5: 00am Chief Complaint Admit Date FDC LAB WORK December 27 5:00am [facility] LAB WORK February 07, 2025 5: 00am [facility] LAB WORK February 26, 2025 4 :00am Reason for Referral Specialty Diagnoses / Procedures Referred By Contac t Referred To Contact Oral Surgery Diagnoses Dental caries Jared Guzman [address] [place] [address] [facility] [address] [facility] [address] [place] [address] Referral ID Status Reason Start Date Expiration Date V isits Requested Visits Authorized [id number] Authorized 01/26/2023 01/27/2024 3 3 Scheduling Instructions Please call the [facility] at [facility] at to schedule an appointment if one was not made for you today. Comments EXT #9, 12 Specialty Diagnoses / Procedures Referred By Contac t Referred To Contact Caridad Evans MD [address] [place] [address] Referral ID Status Reason Start Date Expiration Date V isits Requested Visits Authorized [id number] Pending Review 1 1 Specialty Diagnoses / Procedures Referred By Contac t Referred To Contact Radiology Diagnoses Nausea with vomiting, unspecified Procedures NM gastric emptying solid Elda Reaves (Kelley) [address] [facility] [place] [address] Referral ID Status Reason Start Date Expiration Date V isits Requested Visits Authorized [id number] Authorized 11/24/2023 11/23/2024 3 3 Referral ID Status Reason Start Date Expiration Date V isits Requested Visits Authorized [id number] Pending Review 11/24/2023 11/23/2024 3 3 Specialty Diagnoses / Procedures Referred By Contac t Referred To Contact Radiology Diagnoses Lung nodule Procedures CT chest wo IV contrast Herber Ramos APRN - ARCHITECTURAL DRAFTSPERSON [address] [place] [address] Referral ID Status Reason Start Date Expiration Date V isits Requested Visits Authorized [id number] Authorized 02/11/2024 02/10/2025 1 1 Specialty Diagnoses / Procedures Referred By Joe t Referred To Contact Radiology Diagnoses Solitary pulmonary nodule Procedures CT chest wo IV contrast Herber Ramos, PRODUCT DISTRIBUTION SPECIALIST - ARCHITECTURAL DRAFTSPERSON [address] [place] [address] Referral ID Status Reason Start Date Expiration Date V isits Requested Visits Authorized [id number] Pending Review 02/11/2024 02/10/2025 1 1 Additional Source Comments INFORMATION SOURCE (unrecogn ized section and content) DATE CREATED AUTHOR 05/13/2018 [facility] DATE CREATED AUTHOR AUTHOR'S ORGANIZ ATION 05/18/2018 [facility] DATE CREATED AUTHOR AUTHOR'S ORGANIZ ATION 01/09/2019 [facility] DATE CREATED AUTHOR AUTHOR'S ORGANIZ ATION 11/29/2020 [facility] DATE CREATED AUTHOR AUTHOR'S ORGANIZ ATION 09/25/2021 [facility] DATE CREATED AUTHOR AUTHOR'S ORGANIZ ATION 02/04/2022 [facility] DATE CREATED AUTHOR AUTHOR'S ORGANIZ ATION 11/23/2023 [facility] DATE CREATED AUTHOR AUTHOR'S ORGANIZ ATION 09/13/2025 [facility] DATE CREATED AUTHOR AUTHOR'S ORGANIZ ATION 09/19/2025 [facility] (unrecognized sect ion and content) No Status Records Found Reason for Visit (unrecogniz ed section and content) Reason Comments Leg Pain patient had right AK A last week and has had pain in RLE - skilled nursing sent for eval d/t bloodwork results Reason Comments Abdominal Pain Reason Comments Abdominal Pain Vaginal Bleeding Nausea Reason Comments Wound Check Patient sent over fo r evaluation for worsening leg infections, right lower leg is worse. he is being seen by wound care at [facility] already. Reason Comments Follow-up DM2 Reason [...] . Nabil Hill, DO [address] [place] [address] [facility] 2e Telemetry [address] [phone] Referral ID Status Reason Start Date Expiration Date Visits Re quested Visits Authorized [id number] 1 1 Reason Comments Chest Pain Vomiting Specialty Diagnoses / Procedures Referred By Contac t Referred To Contact Diagnoses Chest pain Chest pain, unspecified type Procedures . Nabil Hill, DO [address] [place] [address] [facility] 2e Telemetry [address] [place] [address] Reason Onset Date Comments Care Coordination 07/05/2023 ED Nuance Lung Nodule Reason Comments Nausea Pt brought in [facility] EMS [facility] with nausea/vomiting x1 day. +MALCOLM. States [...] . Nabil Hill, DO [address] [place] [address] [facility] Emergency Dept [address] [place] [address] Referral ID Status Reason Start Date Expiration Date Visits Re quested Visits Authorized [id number] 1 1 Reason Onset Date Comments Diabetes 08/30/2023 BGL Reason Onset Date Comments Diabetes 09/20/2023 BGL Specialty Diagnoses / Procedures Referred By Contac t Referred To Contact Diagnoses Hypoglycemia Procedures . Ricardo Spring MD [address] [facility] [address] [place] [address] [facility] Emergency Dept [address] [place] [address] Referral ID Status Reason Start Date Expiration Date Visits Re quested Visits Authorized [id number] 1 1 Reason Comments Hypoglycemia Specialty Diagnoses / Procedures Referred By Contac t Referred To Contact Diagnoses Hypoglycemia Procedures . Ricardo Spring MD [address] [facility] [address] [place] [address] [facility] Emergency Dept [address] [place] [address] Reason Onset Date Comments Advice Only 11/09/2023 Reason Onset Date Comments Diabetes 11/23/2023 BGL Reason Comments Flu Symptoms Specialty Diagnoses / Procedures Referred By Contac t Referred To Contact Radiology Diagnoses Nausea with vomiting, unspecified Procedures NM gastric emptying solid Elda Reaves (Kelley) [address] [facility] [place] [address] Referral ID Status Reason Start Date Expiration Date V isits Requested Visits Authorized [id number] Authorized 11/24/2023 11/23/2024 3 3 Reason Onset Date Comments Diabetes 12/28/2023 BGL Reason Comments Nausea Vomiting Pt arrived by EMS fr [facility] due to N/V for 1 month. Upon [...] BGL Reason Comments Hypoglycemia Patient reports from [facility] for low blood sugar. Facility states that [...] Abdominal Pain Pt presents to er [facility]. Pt presents with abd pain, diarrhea, chest pain. Pt presents aox4 speaking in full and complete sentences. Chest Pain Nausea Specialty Diagnoses / Procedures Referred By Contac t Referred To Contact Diagnoses Acute cholecystitis Procedures . Grace Ackerman MD [address] [place] [address] Phone: tel: fax: [facility] Card[facility] Progressive [facility] Unit PCU [address]E [address] [place] [address] Phone: tel: Referral ID Status Reason Start Date Expiration Date Visits Re quested Visits Authorized [id number] 1 1 Reason Onset Date Comments Diabetes [...] of gallbladder without cholecystitis without obstruction Procedures NE OFFICE/OUTPATIENT NEW HIGH MDM 60 MINUTES Rosy Ibarra, PRODUCT DISTRIBUTION SPECIALIST - ARCHITECTURAL DRAFTSPERSON [address] [place] [address] Phone: tel:[phone] fax:[phone] [facility] [place] [address] [place] [address] Phone: tel: fax: Referral ID Status Reason Start Date Expiration Date Visits Requested Visits Authorized [id number] Pending Review Specialty Services Required 12/01/2024 12/01/2025 [...] of right leg above knee (HCC) Procedures NE OFFICE/OUTPATIENT NEW MODERATE MDM 45 MINUTES Jared Guzman [address] [place] [address] Phone: tel: fax: [facility] [place] [address] [facility] [address] [place] [address] Phone: tel: fax: Referral ID Status Reason Start Date Expiration Date Visits Requested Visits Authorized [id number] Pending Review Eval and Treat 01/24/2025 01/24/2026 [...] Inactive Member Role Status Dates Raj LEON THREAD SPINNER-C Attending Provider Active Team Status: Inactive Member Role Status Dates Jared Guzman Attending Provider Active Data Warehouse Administrator Relationship Specialty Start Date End Date Jared Guzman [address] [place] [phone] PCP - General 04/25/19 Data Warehouse Administrator Relationship Specialty Start Date End Date Jared Guzman [address] [place] [phone] PCP - General 04/25/19 Data Warehouse Administrator Relationship Specialty Start Date End Date Jared Guzman [address] [place] [address] PCP - General 04/25/19 Data Warehouse Administrator Relationship Specialty Start Date End Date Jared Guzman [address] [place] [address] PCP - General 04/25/19 Data Warehouse Administrator Relationship Specialty Start Date End Date Jared Guzman [address] [place] [address] PCP - General 04/25/19 Data Warehouse Administrator Relationship Specialty Start Date End Date Jared Guzman [address] [place] [address] PCP - General 04/25/19 Data Warehouse Administrator Relationship Specialty Start Date End Date Jared Guzman [address] [place] [address] PCP - General 04/25/19 Data Warehouse Administrator Relationship Specialty Start Date End Date Jared Guzman [address] [place] [phone] PCP - General 04/25/19 Data Warehouse Administrator Relationship Specialty Start Date End Date Jared Guzman [address] [place] [phone] PCP - General 04/25/19 Data Warehouse Administrator Relationship Specialty Start Date End Date Jared Guzman [address] [place] [address] PCP - General 04/25/19 Data Warehouse Administrator Relationship Specialty Start Date End Date Jared Guzman [address] PCP - General 04/25/19 Data Warehouse Administrator Relationship Specialty Start Date End Date Jared Guzman [address] PCP - General 04/25/19 Data Warehouse Administrator Relationship Specialty Start Date End Date Jared Guzman [address] [place] [address] PCP - General 04/25/19 Data Warehouse Administrator Relationship Specialty Start Date End Date Jared Guzman [address] [place] [address] PCP - General 04/25/19 Data Warehouse Administrator Relationship Specialty Start Date End Date Jared Guzman [address] [place] [address] PCP - General 04/25/19 Data Warehouse Administrator Relationship Specialty Start Date End Date Jared Guzman [address] [place] [address] PCP - General 04/25/19 Data Warehouse Administrator Relationship Specialty Start Date End Date Jared Guzman [address] [place] [address] PCP - General 04/25/19 Data Warehouse Administrator Relationship Specialty Start Date End Date Jared Guzman [address] [place] [phone] PCP - General 04/25/19 Data Warehouse Administrator Relationship Specialty Start Date End Date Jared Guzman [address] [place] [phone] PCP - General 04/25/19 Data Warehouse Administrator Relationship Specialty Start Date End Date Jared Guzman [address] [place] [phone] PCP - General 04/25/19 Data Warehouse Administrator Relationship Specialty Start Date End Date Jared Guzman [address] [place] [address] PCP - General 04/25/19 Data Warehouse Administrator Relationship Specialty Start Date End Date Jared Guzman [address] [place] [address] PCP - General 04/25/19 Data Warehouse Administrator Relationship Specialty Start Date End Date Jared Guzman [address] [place] [address] PCP - General 04/25/19 Data Warehouse Administrator Relationship Specialty Start Date End Date Jared Guzman [address] [place] [address] PCP - General 04/25/19 Data Warehouse Administrator Relationship Specialty Start Date End Date Jared Guzman [address] [place] [address] PCP - General 04/25/19 Data Warehouse Administrator Relationship Specialty Start Date End Date Jared Guzman [address] [place] [address] PCP - General 04/25/19 Data Warehouse Administrator Relationship Specialty Start Date End Date Jared Guzman [address] [place] [address] PCP - General 04/25/19 Data Warehouse Administrator Relationship Specialty Start Date End Date Jared Guzman [address] [place] [address] PCP - General 04/25/19 Data Warehouse Administrator Relationship Specialty Start Date End Date Jared Guzman [address] [place] [address] PCP - General 04/25/19 Data Warehouse Administrator Relationship Specialty Start Date End Date Jared Guzman [address] [place] [address] PCP - General 04/25/19 Data Warehouse Administrator Relationship Specialty Start Date End Date Jared Guzman [address] [place] [address] PCP - General 04/25/19 Data Warehouse Administrator Relationship Specialty Start Date End Date Jared Guzman [address] [place] [address] PCP - General 04/25/19 Data Warehouse Administrator Relationship Specialty Start Date End Date Jared Guzman [address] [place] [address] PCP - General 04/25/19 Data Warehouse Administrator Relationship Specialty Start Date End Date Jared Guzman [address] [place] [address] PCP - General 04/25/19 Data Warehouse Administrator Relationship Specialty Start Date End Date Jared Guzman [address] [place] [address] PCP - General 04/25/19 Data Warehouse Administrator Relationship Specialty Start Date End Date Jared Guzman [address] [place] [address] PCP - General 04/25/19 Data Warehouse Administrator Relationship Specialty Start Date End Date Jared Guzman [address] [place] [address] PCP - General 04/25/19 Data Warehouse Administrator Relationship Specialty Start Date End Date Jared Guzman [address] [place] [address] PCP - General 04/25/19 Data Warehouse Administrator Relationship Specialty Start Date End Date Jared Guzman [address] [place] [address] PCP - General 04/25/19 Data Warehouse Administrator Relationship Specialty Start Date End Date Jared Guzman [address] [place] [address] PCP - General 04/25/19 Data Warehouse Administrator Relationship Specialty Start Date End Date Jared Guzman [address] [place] [address] PCP - General 04/25/19 Data Warehouse Administrator Relationship Specialty Start Date End Date Jared Guzman [address] [place] [address] PCP - General 04/25/19 Data Warehouse Administrator Relationship Specialty Start Date End Date Jared Guzman [address] [place] [address] PCP - General 04/25/19 Data Warehouse Administrator Relationship Specialty Start Date End Date Jared Guzman [address] [place] [address] PCP - General 04/25/19 [facility] Other Attendant 01/30/25 Data Warehouse Administrator Relationship Specialty Start Date End Date Jared Guzman [address] [place] [address] PCP - General 04/25/19 Alejandro Mandel APRN - CNP [address] [place] [address] Nurse Practitioner Nurse Practitioner 02/01/25 [facility] Other Attendant 01/30/25 Team Status: Inactive [...] December 05, 2024 End: December 05, 2024 Data Warehouse Administrator Relationship Specialty Start Date End Date Jared Guzman [address] [place] [address] PCP - General 04/25/19 Alejandro Mandel APRN - CNP [address] [place] [address] Nurse Practitioner Nurse Practitioner 02/01/25 [facility] Other Attendant 01/30/25 Data Warehouse Administrator Relationship Specialty Start Date End Date Jared Guzman [address] [place] [address] PCP - General 04/25/19 Alejandro Mandel APRN - ARCHITECTURAL DRAFTSPERSON [address] [place] [address] Nurse Practitioner Nurse Practitioner 02/01/25 [facility] Other Attendant 01/30/25 Data Warehouse Administrator Relationship Specialty Start Date End Date Jared Guzman [address] [place] [address] PCP - General 04/25/19 Alejandro Mandel APRN - ARCHITECTURAL DRAFTSPERSON [address] [place] [address] Nurse Practitioner Nurse Practitioner 02/01/25 [facility] Other Attendant 01/30/25 Team Status: Inactive Member Role Status Dates Jared LEON Attending Provider Active Sta rt: February 07, 2025 End: February 07, 2025 Team Status: Active Member Role Status Dates Jared LEON Attending Provider Active Sta rt: February 26, 2025 Data Warehouse Administrator Relationship Specialty Start Date End Date Jared Guzman [address] [place] [address] PCP - General 04/25/19 Alejandro Mandel APRN - ARCHITECTURAL DRAFTSPERSON [address] [place] [address] Nurse Practitioner Nurse Practitioner 02/01/25 [facility] Other Attendant 01/30/25 Team Status: Inactive Member Role Status Dates Jared LEON Attending Provider Active Sta rt: February 26, 2025 End: February 26, 2025 Jared LEON Referring Provider Active Sta rt: February 26, 2025 End: February 26, 2025 Data Warehouse Administrator Relationship Specialty Start Date End Date Jared Guzman [address] [place] [address] PCP - General 04/25/19 Alejandro Mandel APRN - ARCHITECTURAL DRAFTSPERSON [address] [place] [address] Nurse Practitioner Nurse Practitioner 02/01/25 [facility] Other Attendant 01/30/25 Data Warehouse Administrator Relationship Specialty Start Date End Date Jared Guzman [address] [place] [address] PCP - General 04/25/19 Alejandro Mandel APRN - ARCHITECTURAL DRAFTSPERSON [address] [place] [address] Nurse Practitioner Nurse Practitioner 02/01/25 [facility] Other Attendant 01/30/25 Data Warehouse Administrator Relationship Specialty Start Date End Date Jared Guzman [address] [place] [address] PCP - General 04/25/19 Alejandro Mandel APRN - ARCHITECTURAL DRAFTSPERSON [address] [place] [address] Nurse Practitioner Nurse Practitioner 02/01/25 [facility] Other Attendant 01/30/25 Data Warehouse Administrator Relationship Specialty Start Date End Date Jared Guzman [address] [place] [address] PCP - General 04/25/19 Aleajndro Mandel PRODUCT DISTRIBUTION SPECIALIST - ARCHITECTURAL DRAFTSPERSON [address] [place] [address] Nurse Practitioner Nurse Practitioner 02/01/25 [facility] Other Attendant 01/30/25 Data Warehouse Administrator Relationship Specialty Start Date End Date Jared Guzman [address] [place] [address] PCP - General 04/25/19 Alejandro Mandel PRODUCT DISTRIBUTION SPECIALIST - ARCHITECTURAL DRAFTSPERSON [address] [place] [address] Nurse Practitioner Nurse Practitioner 02/01/25 [facility] Other Attendant 01/30/25 Data Warehouse Administrator Relationship Specialty Start Date End Date Jared Guzman [address] [place] [address] PCP - General 04/25/19 Alejandro Mandel PRODUCT DISTRIBUTION SPECIALIST - ARCHITECTURAL DRAFTSPERSON [address] [place] [address] Nurse Practitioner Nurse Practitioner 02/01/25 [facility] Other Attendant 01/30/25 Data Warehouse Administrator Relationship Specialty Start Date End Date Jared Guzman [address] [place] [address] PCP - General 04/25/19 Alejandro Mandel APRN - ARCHITECTURAL DRAFTSPERSON [address] [place] [address] Nurse Practitioner Nurse Practitioner 02/01/25 [facility] Other Attendant 01/30/25 Data Warehouse Administrator Relationship Specialty Start Date End Date Jared Guzman [address] [place] [address] PCP - General 04/25/19 Alejandro Mandel APRN - ARCHITECTURAL DRAFTSPERSON [address] [place] [address] Nurse Practitioner Nurse Practitioner 02/01/25 [facility] Other Attendant 01/30/25 Data Warehouse Administrator Relationship Specialty Start Date End Date Jared Guzman [address] [place] [address] PCP - General 04/25/19 Alejandro Mandel PRODUCT DISTRIBUTION SPECIALIST - ARCHITECTURAL DRAFTSPERSON [address] [place] [address] Nurse Practitioner Nurse Practitioner 02/01/25 [facility] Other Attendant 01/30/25 Data Warehouse Administrator Relationship Specialty Start Date End Date Jared Guzman [address] [place] [address] PCP - General 04/25/19 Alejandro Mandel APRN - CNP [address] [place] [address] Nurse Practitioner Nurse Practitioner 02/01/[address] [facility] Other Attendant 01/30/25 Data Warehouse Administrator Relationship Specialty Start Date End Date Jared Guzman [address] [place] [address] PCP - General 04/25/19 Alejandro Mandel APRN - CNP [address] [place] [address] [address] [place] [address] Nurse Practitioner Nurse Practitioner 02/01/25 [facility] Other Attendant 01/30/25 Data Warehouse Administrator Relationship Specialty Start Date End Date Jared Guzman [address] [place] [address] PCP - General 04/25/19 Alejandro Mandel APRN - CNP [address] [place] [address] [address] [place] [address] Nurse Practitioner Nurse Practitioner 02/01/[address] [facility] Other Attendant 01/30/25 Scheduled Active and Recently [...] RN - Reason: NPO)2019 (Given - Provider: aMrgo Alexis RN) 0900 (Given - Provider: Suzanne [...] ider: Tanya Contreras RN)0753 (Stopped - Provider: Kalros Garcia RN) sodium chloride 0.9 % bolus [...] Kaci Figueroa RN) 0828 (Given - Provider: Olmipia Mustafa RN)1957 (Given - Provider: Ioana Barahona [...] Provider: Joyce Moore LPN)2044 (Given - Provider: Lashwan Chinchilla RN) 0915 (Given - Provider: Gricelda [...] Provider: Morenita Hess RN)2122 (Given - Provider: Glil Edmonds, PASTORA) 102 (Given - Provider: Ezio [...] for opioid reversal - MUST notify communications engineer provider immediately after first dose, may give [...] BE BASED ON THE PRIMARY CLINICAL RECORDS. [employer] provides no warranty or guarantee of the accuracy or completeness of information in this document.
[2025-10-17 08:53] LABS: Anion Gap 10 (5-15); BUN 18 mg/dL (4-19); BUN/Creat Ratio 27.6 RATIO (10-20); Calcium,Total 8.8 mg/dL (7.6-11.0); Carbon Dioxide 32.1 mmol/L (21.0-32.0); Chloride 100 mmol/L (98-108); Glucose 149 mg/dL (70-99); Potassium 4.3 mmol/L (3.3-5.1)
== END ==
LOC: OLS.SANC 05:00
PROVIDERS: Visit Provider Internal Medicine
DX: I10 Essential (primary) hypertension (principal); E78.5 Hyperlipidemia, unspecified
CPT/HCPCS: 36415; 80048